=== PATIENT | female | born 1980 | race Caucasian/White ===

== ENCOUNTER 2020-05-23 11:14 | Emergency (ER) | payer SELFPAY ==
[2020-05-23 12:24] LABS: Absolute Lymphocytes (CBC) 2.4 K/uL (0.7-4.9); Basophils % 1.1 % (0-1.3); Lymphocytes % 25.2 % (15.3-44.8); MPV 8.1 fL (7.6-11.3); RBC Red Blood Cell Count 5.27 M/uL (3.86-4.86)
[2020-05-23] MEDS ORDERED: METOCLOPRAMIDE 10 MG/2mL INJ ONE (12:30)
[2020-05-23] MEDS ORDERED: NA CHLORIDE 0.9% 1,000 ML ONE (12:31)
[2020-05-23] MEDS ORDERED: LORazepam 2 MG/ML VIAL ONE (12:31)
[2020-05-23] MEDS ORDERED: DIPHENHYDRAMINE 50 MG/ML VIAL ONE (12:31)
[2020-05-23 12:47] LABS: ALT/SGPT 30 U/L (12-78); AST/SGOT 10 U/L (15-37); Albumin 3.9 g/dL (3.4-5.0); Alkaline Phosphatase 83 U/L (45-117); BUN Blood Urea Nitrogen 11 mg/dL (7-18); Bicarbonate 25 mmol/L (21-32); Bilirubin Direct < 0.1 mg/dL (0-0.2); Bilirubin Total 0.2 mg/dL (0.2-1.0); Glucose Level 90 mg/dL (74-106); Lipase 111 U/L (73-393); Potassium 4.6 mmol/L (3.5-5.1); Protein, Total 7.8 g/dL (6.4-8.2); Sodium Level 140 mmol/L (136-145)
[2020-05-23 12:50] LABS: Urine Blood NEGATIVE (NEG); Urine Glucose NEGATIVE (NEG); Urine Protein NEGATIVE (NEG)
[2020-05-23] MEDS ORDERED: MORPHINE 4 MG/ML SYR ONE (13:39)
--- NOTE | 2020-05-23 13:44 | RAD REPORT ---
EXAM DESCRIPTION: CTAbdomen Pelvis W Contrast - 05/23/2020 1:27 pm CLINICAL HISTORY: Abdominal pain. right sided abdominal pain COMPARISON: CT ABD PELVIS W CONTRAST dated 07/16/2008 TECHNIQUE: Biphasic CT imaging of the abdomen and pelvis was performed with 100 ml non-ionic IV cont rast. All CT scans are performed using dose optimization technique as appropriate and may include automated exposure control or mA/KV adjustment according to patient size. FINDINGS: The lung bases are clear.Cholecystectomy clips. The liver, spleen, pancreas, right adrenal gland and kidneys are within normal limits. 21 mm left adr enal mass is present. No bowel obstruction, free air, free fluid or abscess. Sigmoid diverticulosis without diverticulitis. The appendix is normal. No evidence of significant lymphadenopathy. No suspicious bony findings. IMPRESSION: No acute intra-abdominal or pelvic finding. 21 mm left adrenal mass is new since 2008 but statistically most likely a benign adenoma. Nonemergent MRI adrenal protocol could be obtained for further workup.
--- NOTE | 2020-05-23 14:59 | RAD REPORT ---
EXAM DESCRIPTION: US - Pelvis Complete - 05/23/2020 2:51 pm CLINICAL HISTORY: abdominal pain Pelvic pain. COMPARISON: No comparisons FINDINGS: The uterus is normal in size, shape and echotexture. The uterus measures 8.2 x 5.6 x 3.9 c m. The endometrial stripe measures 10 mm, normal. Both ovaries are normal in size, shape and echotexture. The right ovary measures 2.6 x 2.5 x 2.3 cm. The left ovary measures 3.3 x 2.4 x 2.3 cm. No ovarian or parovarian lesions. No adnexal masses. Normal Doppler blood flow was demonstrated to both ovaries. No significant pelvic ascites. IMPRESSION: Unremarkable study.
[2020-05-23] MEDS ORDERED: FENTANYL CITR 100 MCG/2 ML ONE (15:08)
--- NOTE | 2020-05-23 15:14 | ER ---
Nurse's Notes [facility] Name: Charity Hanks Age: 40 yrs Sex: Female : 1980 Arrival Date: 05/23/2020 Time: 11:17 Bed 19 Private MD: Diagnosis: Generalized abdominal pain Presentation: 05/23 11:30 Chief complaint: Patient states: R flank pain for 10 days with N/V. Coronavirus screen: ll1 Client denies travel out of the [place] in the last 14 days. At this time, the client does not indicate any symptoms associated with coronavirus-19. The client reports previous COVID testing was negative. Ebola Screen: Patient denies travel to an Ebola-affected area in the 21 days before illness onset. Initial Sepsis Screen: Does the patient meet any 2 criteria? No. Patient's initial sepsis screen is negative. Does the patient have a suspected source of infection? Yes: Other: flank pain. Risk Assessment: Do you want to hurt yourself or someone else? Patient reports no desire to harm self or others. Onset of symptoms was May 13, 2020. 11:30 Method Of Arrival: Ambulatory [facility] 11:30 Acuity: CARLOS 3 ll1 Historical: - Allergies: 11:30 No Known Allergies; ll1 - PSHx: 11:30 Cholecystectomy; Tonsillectomy; ll1 - Immunization history:: Flu vaccine is not up to date. - Social history:: Smoking status: Patient reports the use of cigarette tobacco products, smokes one-half pack cigarettes per day. Screenin:32 Abuse screen: Denies threats or abuse. Nutritional screening: No deficits noted. em Tuberculosis screening: No symptoms or risk factors identified. Fall Risk None identified. Assessment: 12:00 General: Appears in no apparent distress. uncomfortable, Behavior is calm, cooperative, em appropriate for age, Denies fever. Pain: Complains of pain in anterior aspect of right lateral abdomen Pain radiates to posterior aspect of right lateral abdomen Pain currently is 10 out of 10 on a pain scale. Neuro: Level of Consciousness is awake, alert, obeys commands, Oriented to person, place, time, situation, Appropriate for age. Cardiovascular: Capillary refill < 3 seconds Patient's skin is warm and dry. Respiratory: Airway is patent Respiratory effort is even, unlabored, Respiratory pattern is regular, symmetrical. GI: Abdomen is flat, Reports nausea, vomiting, Patient currently denies diarrhea. : Denies burning with urination. Derm: Skin is intact, is healthy with good turgor, Skin is pink, warm \T\ dry. Musculoskeletal: Capillary refill < 3 seconds, Range of motion: intact in all extremities. 14:20 Reassessment: wheeled to US via wheelchair. em 14:54 Reassessment: reports pain after US from them pressing down on abdomen, provider em notified, received verbal order for 50 mcg fentanyl IVP x 1. 15:37 Reassessment: Patient appears in no apparent distress at this time. Patient and/or em family updated on plan of care and expected duration. Pain level reassessed. Patient is alert, oriented x 3, equal unlabored respirations, skin warm/dry/pink. Vital Signs: 11:30 BP 129 / 96; Pulse 88; Resp 18; Temp 98.0; Pulse Ox 99% ; Weight 91.63 kg; Height 5 ft. ll1 2 in. (157.48 cm); Pain 10/10; 13:00 BP 116 / 68; Pulse 68; Resp 18; Pulse Ox 98% ; em 14:00 BP 117 / 72; Pulse 71; Resp 18; Pulse Ox 100% on R/A; em 11:30 Body Mass Index 36.95 (91.63 kg, 157.48 cm) ll1 ED Course: 11:17 Patient arrived in ED. mr 11:31 Triage completed. 1 11:31 Arm band placed on Patient placed in an exam room, on a stretcher. [facility] 11:32 Oumar Hodges, JAMES is Primary Nurse. em 11:32 Henry Mclain PA is PHCP. [facility] 11:32 Carmine Jackson MD is Attending Physician. [facility] 11:32 Patient has correct armband on for positive identification. Bed in low position. Call em light in reach. 12:10 Initial lab(s) drawn, by me, sent to lab. Inserted saline lock: 22 gauge in right em antecubital area, using aseptic technique. Blood collected. 13:26 CT Abd/Pelvis - IV Contrast Only In Process Unspecified. EDMS 14:50 US Pelvis Complete In Process Unspecified. EDMS 15:13 Aric Dolan MD is Referral Physician. jmm 15:36 No provider procedures requiring assistance completed. IV discontinued, intact, em bleeding controlled, No redness/swelling at site. Pressure dressing applied. Administered Medications: 12:33 Drug: NS 0.9% 1000 ml Route: IV; Rate: 1 bolus; Site: right antecubital; em 13:49 Follow up: IV Status: Completed infusion; IV Intake: 1000ml em 12:33 Drug: diphenhydrAMINE 12.5 mg Route: IVP; Site: right antecubital; em 13:50 Follow up: Response: No adverse reaction em 12:35 Drug: Reglan 10 mg Route: IVP; Site: right antecubital; em 13:49 Follow up: Response: No adverse reaction; Nausea is decreased em 12:37 Drug: Ativan 1 mg Route: IVP; Site: right antecubital; em 13:50 Follow up: Response: No adverse reaction em 13:49 Drug: morphine 4 mg Route: IVP; Site: right antecubital; em 14:24 Follow up: Response: No adverse reaction; Marked relief of symptoms; Pain is decreased; em RASS: Alert and Calm (0) 15:00 Drug: fentaNYL (PF) 50 mcg Route: IVP; Site: right antecubital; em Intake: 13:49 IV: 1000ml; Total: 1000ml. em Outcome: 15:14 Discharge ordered by MD. [facility] 15:36 Discharged to home ambulatory. em 15:36 Condition: good 15:36 Discharge instructions given to patient, Instructed on discharge instructions, follow up and referral plans. medication usage, Demonstrated understanding of instructions, follow-up care, medications, Prescriptions given X 4. 15:43 Patient left the ED. em Signatures: Dispatcher [employer] Henry Gtz PA PA jmm Alie Hanson HodgesOumar, RN RN Sandra Pichardo RN RN ll1
--- NOTE | 2020-05-23 15:14 | EDPHYS ---
Physician Documentation [facility] Name: Charity Hanks Age: 40 yrs Sex: Female : 1980 Arrival Date: 05/23/2020 Time: 11:17 Bed 19 Private MD: ED Physician Carmine Jackson HPI: 05/23 11:47 This 40 yrs old Female presents to ER via Ambulatory with complaints of Flank jmm Pain, Nausea. 11:47 The patient complains of pain in the right flank. Onset: The symptoms/episode jmm began/occurred gradually, 1 week(s) ago. Modifying factors: The symptoms are alleviated by nothing. the symptoms are aggravated by nothing. This is a 40 year old female with no chronic medical conditions that presents to the ED with complaints of right sided abdominal pain beginning approx 1 week ago. Patient states she has been evaluated multiple times with negative imaging results. Patient continues to have been. Historical: - Allergies: 11:30 No Known Allergies; ll1 - PSHx: 11:30 Cholecystectomy; Tonsillectomy; ll1 - Immunization history:: Flu vaccine is not up to date. - Social history:: Smoking status: Patient reports the use of cigarette tobacco products, smokes one-half pack cigarettes per day. ROS: 11:47 Constitutional: Negative for fever, chills, and weight loss, Cardiovascular: Negative jmm for chest pain, palpitations, and edema, Respiratory: Negative for shortness of breath, cough, wheezing, and pleuritic chest pain. 11:47 Abdomen/GI: Positive for abdominal pain. 11:47 All other systems are negative. Exam: 11:47 Constitutional: This is a well developed, well nourished patient who is awake, alert, jmm and in no acute distress. Head/Face: atraumatic. Eyes: EOMI, no conjunctival erythema appreciated ENT: Moist Mucus Membranes Neck: Trachea midline, Supple Chest/axilla: Normal chest wall appearance and motion. Cardiovascular: Regular rate and rhythm. No edema appreciated Respiratory: Normal respirations, no respiratory distress appreciated 11:47 Back: Normal ROM Skin: General appearance color normal MS/ Extremity: Moves all extremities, no obvious deformities appreciated, no edema noted to the lower extremities Neuro: Awake and alert, normal gait Psych: Behavior is normal, Mood is normal, Patient is cooperative and pleasant 11:47 Abdomen/GI: Inspection: abdomen appears normal, Bowel sounds: normal, Palpation: soft, moderate abdominal tenderness, in the right lower quadrant. Vital Signs: 11:30 BP 129 / 96; Pulse 88; Resp 18; Temp 98.0; Pulse Ox 99% ; Weight 91.63 kg; Height 5 ft. ll1 2 in. (157.48 cm); Pain 10/10; 13:00 BP 116 / 68; Pulse 68; Resp 18; Pulse Ox 98% ; em 14:00 BP 117 / 72; Pulse 71; Resp 18; Pulse Ox 100% on R/A; em 11:30 Body Mass Index 36.95 (91.63 kg, 157.48 cm) ll1 MDM: 11:47 Patient medically screened. [facility] 13:56 Data reviewed: vital signs, nurses notes. Counseling: I had a detailed discussion with osvaldo the patient and/or guardian regarding: the historical points, exam findings, and any diagnostic results supporting the discharge/admit diagnosis, the need for outpatient follow up, to return to the emergency department if symptoms worsen or persist or if there are any questions or concerns that arise at home. 15:12 Data reviewed: lab test result(s), radiologic studies, CT scan, ultrasound. Counseling: osvlado I had a detailed discussion with the patient and/or guardian regarding: lab results, radiology results. ED course: Pain is relieved in the ED. Patient advised to follow up with GI for further evaluation. Patient is otherwise given strict return precautions. Patient understood and agrees with the plan of care. . 05/23 11:49 Order name: Basic Metabolic Panel; Complete Time: 12:53 [facility] 05/23 11:49 Order name: CBC with Diff; Complete Time: 12:29 [facility] 05/23 11:49 Order name: Hepatic Function; Complete Time: 12:53 [facility] 05/23 11:49 Order name: Lipase; Complete Time: 12:53 [facility] 05/23 12:43 Order name: Urine Dipstick--Ancillary (enter results) 05/23 12:43 Order name: Urine --Ancillary (enter results) 05/23 11:49 Order name: CT Abd/Pelvis - IV Contrast Only; Complete Time: 13:47 [facility] 05/23 13:57 Order name: US Pelvis Complete; Complete Time: 15:04 [facility] 05/23 11:49 Order name: IV Saline Lock; Complete Time: 12:37 [facility] 05/23 11:49 Order name: Labs collected and sent; Complete Time: 12:37 [facility] 05/23 12:39 Order name: Urine Dipstick-Ancillary (obtain specimen); Complete Time: 12:43 [facility] 05/23 12:39 Order name: Urine Test (obtain specimen); Complete Time: 12:43 [facility] Administered Medications: 12:33 Drug: NS 0.9% 1000 ml Route: IV; Rate: 1 bolus; Site: right antecubital; em 13:49 Follow up: IV Status: Completed infusion; IV Intake: 1000ml em 12:33 Drug: diphenhydrAMINE 12.5 mg Route: IVP; Site: right antecubital; em 13:50 Follow up: Response: No adverse reaction em 12:35 Drug: Reglan 10 mg Route: IVP; Site: right antecubital; em 13:49 Follow up: Response: No adverse reaction; Nausea is decreased em 12:37 Drug: Ativan 1 mg Route: IVP; Site: right antecubital; em 13:50 Follow up: Response: No adverse reaction em 13:49 Drug: morphine 4 mg Route: IVP; Site: right antecubital; em 14:24 Follow up: Response: No adverse reaction; Marked relief of symptoms; Pain is decreased; em RASS: Alert and Calm (0) 15:00 Drug: fentaNYL (PF) 50 mcg Route: IVP; Site: right antecubital; em Disposition: 15:52 Co-signature as Attending Physician, Carmine Jackson MD. rn Disposition: 05/23/20 15:14 Discharged to Home. Impression: Generalized abdominal pain. - Condition is Stable. - Discharge Instructions: Abdominal Pain, Adult. - Prescriptions for Bentyl 20 mg Oral Tablet - take 1 tablet by ORAL route every 6 hours As needed; 20 tablet. Ultracet 37.5- 325 mg Oral Tablet - take 12 tablet by ORAL route every 6 hours - for up to 5 days; do not exceed 8 tablets per day.; 30 tablet. promethazine 25 mg Oral Tablet - take 1 tablet by ORAL route every 6 hours As needed; 20 tablet. Medrol ([place]) 4 mg Oral Tablets, Dose Pack - take 1 tablet by ORAL route as directed - follow package instructions; 1 packet. - Work release form, Medication Reconciliation Form, Thank You Letter, Antibiotic Education, Prescription Opioid Use form. - Follow up: Aric Dolan MD; When: 2 - 3 days; Reason: Recheck today's complaints, Continuance of care, Re-evaluation by your physician. Signatures: Dispatcher [employer] EDMS Henry Mclain PA PA jmm Munoz, Edgar, RN RN Carmine Pickett MD MD rn Lewis, Lynsay, RN RN ll1 Corrections: (The following items were deleted from the chart) 15:43 15:14 05/23/2020 15:14 Discharged to Home. Impression: Generalized abdominal pain. em Condition is Stable. Forms are Medication Reconciliation Form, Thank You Letter, Antibiotic Education, Prescription Opioid Use. Follow up: Aric Dolan; When: 2 - 3 days; Reason: Recheck today's complaints, Continuance of care, Re-evaluation by your physician. osvaldo
[2020-05-23 17:02] VITALS: TEMP 98
[2020-05-23 17:05] VITALS: BP 117/72; O2SAT 100
== END 2020-05-23 15:43 | disposition home or self-care (01) ==
LOC: ER 11:14
DX: R10.84 Generalized abdominal pain (principal); F17.210 Nicotine dependence, cigarettes, uncomplicated
CPT/HCPCS: 36415; 74177; 76856; 80048; 80076; 81003; 81025; 83690; 85025; 96361; 96374; 96375; 99284; J1200; J2765; J3010; J7030; Q9967

== ENCOUNTER 2020-08-08 20:35 | Emergency (ER) | payer BC, SELFPAY ==
[2020-08-08] MEDS ORDERED: MEPERIDINE HCL 25 MG/ML SYR ONE ×2 (21:37→22:49)
[2020-08-08] MEDS ORDERED: ONDANSETRON 4 MG/2 ML VIAL ONE (21:37)
[2020-08-08 21:45] LABS: Absolute Lymphocytes (CBC) 4.3 K/uL (0.7-4.9); Basophils % 1.2 % (0-1.3); Hematocrit 39.4 % (36.0-45.0); Lymphocytes % 33.8 % (15.3-44.8); MPV 8.2 fL (7.6-11.3); RBC Red Blood Cell Count 4.58 M/uL (3.86-4.86)
[2020-08-08 21:58] LABS: ALT/SGPT 18 U/L (12-78); AST/SGOT 14 U/L (15-37); Albumin 3.4 g/dL (3.4-5.0); Alkaline Phosphatase 59 U/L (45-117); BUN Blood Urea Nitrogen 11 mg/dL (7-18); Bicarbonate 21 mmol/L (21-32); Bilirubin Direct < 0.1 mg/dL (0-0.2); Bilirubin Total 0.1 mg/dL (0.2-1.0); Glucose Level 99 mg/dL (74-106); NT PRO-BNP 83 pg/mL (<125); Potassium 3.7 mmol/L (3.5-5.1); Protein, Total 6.8 g/dL (6.4-8.2); Sodium Level 142 mmol/L (136-145); Troponin (Emerg Dept Use Only) < 0.02 ng/mL (0.0-0.045)
[2020-08-08] MEDS ORDERED: Levofloxacin 750mg IV 750 MG/150 ML BAG IV ONE (22:49)
[2020-08-08 22:56] LABS: SARS-COV-2 RT PCR NEGATIVE (NEGATIVE)
--- NOTE | 2020-08-09 00:41 | ER ---
Nurse's Notes [facility] Name: Charity Hanks Age: 40 yrs Sex: Female : 1980 Arrival Date: 08/08/2020 Time: 20:37 Bed 14 Private MD: Johnny Zapata E Diagnosis: Pneumonia, unspecified organism Presentation: 08/08 20:41 Chief complaint: Patient states: R flank pain started yesterday. Today, chest pain, dry ca1 mouth, muscle pains and difficulty swallowing. Also reports a little bit of cough, and a little bit of burning with urination. Coronavirus screen: Client denies travel out of the [place] in the last 14 days. cough unrelated to allergies, muscle pain, shortness of breath, sore throat, Client presents with at least one sign or symptom that may indicate coronavirus-19. Standard/surgical mask placed on the client. Provider contacted for isolation considerations. Ebola Screen: Patient negative for fever greater than or equal to 101.5 degrees Fahrenheit, and additional compatible Ebola Virus Disease symptoms Patient denies exposure to infectious person. Patient denies travel to an Ebola-affected area in the 21 days before illness onset. No symptoms or risks identified at this time. Initial Sepsis Screen: Does the patient meet any 2 criteria? No. Patient's initial sepsis screen is negative. Does the patient have a suspected source of infection? No. Patient's initial sepsis screen is negative. Risk Assessment: Do you want to hurt yourself or someone else? Patient reports no desire to harm self or others. Onset of symptoms was August 08, 2020. 20:41 Method Of Arrival: Ambulatory ca1 20:41 Acuity: CARLOS 3 ca1 Historical: - Allergies: 20:56 No Known Allergies; ca1 - Home Meds: 20:56 None [Active]; ca1 - PMHx: 20:56 None; ca1 - PSHx: 20:56 Tonsillectomy; Cholecystectomy; ca1 - Immunization history:: Flu vaccine is not up to date. - Social history:: Smoking status: Patient reports the use of cigarette tobacco products, smokes one-half pack cigarettes per day. - Family history:: not pertinent. - Hospitalizations: : No recent hospitalization is reported. Screenin:45 Abuse screen: Denies threats or abuse. Nutritional screening: No deficits noted. jb4 Tuberculosis screening: No symptoms or risk factors identified. Fall Risk None identified. Assessment: 21:45 General: Appears in no apparent distress. uncomfortable, Behavior is calm, cooperative, jb4 appropriate for age. Pain: Complains of pain in chest Pain does not radiate. Pain currently is 9 out of 10 on a pain scale. Quality of pain is described as pressure. Neuro: Level of Consciousness is awake, alert, obeys commands, Oriented to person, place, time, situation. Cardiovascular: Heart tones S1 S2 present Patient's skin is warm and dry. Respiratory: Airway is patent Respiratory effort is even, labored, with retractions, Respiratory pattern is symmetrical, hyperventilation Breath sounds are clear bilaterally. GI: No signs and/or symptoms were reported involving the gastrointestinal system. : No signs and/or symptoms were reported regarding the genitourinary system. EENT: No signs and/or symptoms were reported regarding the EENT system. Derm: Skin is intact, Skin is pink, warm \T\ dry. Musculoskeletal: Circulation, motion, and sensation intact. Range of motion: intact in all extremities. 22:00 Reassessment: Patient appears in no apparent distress at this time. Patient and/or jb4 family updated on plan of care and expected duration. Pain level reassessed. PT remains A\T\Ox4, reports decrease pain. respirations remain elevated at 39, provider is aware. Patient states feeling better. 23:09 Reassessment: Patient appears in no apparent distress at this time. No changes from jb4 previously documented assessment. Patient and/or family updated on plan of care and expected duration. Pain level reassessed. 08/09 00:39 Reassessment: Patient appears in no apparent distress at this time. Patient and/or jb4 family updated on plan of care and expected duration. Pain level reassessed. Patient is alert, oriented x 3, equal unlabored respirations, skin warm/dry/pink. Patient denies pain at this time. Patient states feeling better. Patient states symptoms have improved. Vital Signs: 08/08 20:41 BP 135 / 88; Pulse 92; Resp 20 S; Temp 98(O); Pulse Ox 98% on R/A; Weight 99.79 kg (R); ca1 Height 5 ft. 2 in. (157.48 cm) (R); Pain 9/10; 22:00 BP 124 / 77; Pulse 86; Resp 39; Pulse Ox 98% on R/A; jb4 23:30 BP 124 / 80; Pulse 73; Resp 28; Pulse Ox 97% on R/A; jb4 08/09 00:30 BP 109 / 81; Pulse 87; Resp 18; Pulse Ox 97% on R/A; jb4 08/08 20:41 Body Mass Index 40.24 (99.79 kg, 157.48 cm) ca1 ED Course: 08/08 20:37 Patient arrived in ED. am2 20:37 Johnny Zapata MD is Private Physician. am2 20:42 Carmine Jackson MD is Attending Physician. rn 20:55 Triage completed. ca1 20:56 Arm band placed on right wrist. ca1 21:02 Herminio Sauer, RN is Primary Nurse. jb4 21:10 Initial lab(s) drawn, by ms, sent to lab. Inserted saline lock: 18 gauge in right jb4 forearm, using aseptic technique. Blood collected. 21:45 Patient has correct armband on for positive identification. Call light in reach. Side jb4 rails up X 1. light bulb tester on. Pulse ox on. NIBP on. 21:45 Patient maintains SpO2 saturation greater than 95% on room air. jb4 21:59 XRAY Chest (1 view) In Process Unspecified. EDMS 22:03 CT Stone Protocol In Process Unspecified. EDMS 23:26 CT Chest For PE Angio In Process Unspecified. EDMS 08/09 00:53 No provider procedures requiring assistance completed. Patient did not have IV access jb4 during this emergency room visit. Administered Medications: 08/08 21:35 Drug: Zofran (Ondansetron) 4 mg Route: IVP; Site: left antecubital; jb4 22:00 Follow up: Response: No adverse reaction jb4 21:40 Drug: Demerol 25 mg Route: IVP; Site: right antecubital; jb4 22:10 Follow up: Response: No adverse reaction; Pain is decreased; RASS: Alert and Calm (0) jb4 22:48 Drug: Demerol 25 mg Route: IVP; Site: right forearm; jb4 23:15 Follow up: Response: No adverse reaction; Pain is decreased; RASS: Alert and Calm (0) jb4 22:50 Drug: LevaQUIN 750 mg Volume: 150 ml; Route: IVPB; Infused Over: 90 mins; Site: right jb4 forearm; 08/09 00:20 Follow up: Response: No adverse reaction; IV Status: Completed infusion; IV Intake: jb4 150ml Intake: 00:20 IV: 150ml; Total: 150ml. jb4 Outcome: 00:40 Discharge ordered by . rn 00:53 Discharged to home ambulatory. jb4 00:53 Condition: stable 00:53 Discharge instructions given to patient, Instructed on discharge instructions, follow up and referral plans. medication usage, Demonstrated understanding of instructions, follow-up care, medications, Prescriptions given X 1. 00:54 Patient left the ED. jb4 Signatures: Dispatcher [employer] EDMS Carmine Jackson MD MD rn Bryson, James RN RN jb4 Becky Edgar Cheryl RN RN ca1
--- NOTE | 2020-08-09 00:41 | EDPHYS ---
Physician Documentation [facility] Name: Charity Hanks Age: 40 yrs Sex: Female : 1980 Arrival Date: 08/08/2020 Time: 20:37 Bed 14 Private MD: Johnny Zapata E ED Physician Carmine Jackson HPI: 08/08 20:48 This 40 yrs old Female presents to ER via Unassigned with complaints of Chest rn Pain, dry mouth, Difficulty Swallowing, Low Back Pain. 20:48 The patient or guardian reports chest pain that is located primarily in the substernal rn area. Onset: yesterday. The pain does not radiate. Associated signs and symptoms: Pertinent positives: cough, nausea, right flank pain. The chest pain is described as sharp. Duration: The patient or guardian reports multiple episodes, that are intermittent. Modifying factors: The symptoms are alleviated by nothing. the symptoms are aggravated by cough, deep breath. Severity of pain: At its worst the pain was mild in the emergency department the pain is unchanged. The patient has not experienced similar symptoms in the past. The patient has not recently seen a physician. Reports "doesn't feel good", began yesterday, reports biggest problem is right lower/flank pain, non-radiating, assoc with nausea and increased urination and dysuria. Also reports substernal chest pain, assoc with cough, sharp, lasts seconds, non-radiating. Also reports low grade fever, nausea, diarrhea, and fatigue. No known sick contacts. Also reports feels like can't get enough water and dry mouth.. Historical: - Allergies: 20:56 No Known Allergies; ca1 - Home Meds: 20:56 None [Active]; ca1 - PMHx: 20:56 None; ca1 - PSHx: 20:56 Tonsillectomy; Cholecystectomy; ca1 - Immunization history:: Flu vaccine is not up to date. - Social history:: Smoking status: Patient reports the use of cigarette tobacco products, smokes one-half pack cigarettes per day. - Family history:: not pertinent. - Hospitalizations: : No recent hospitalization is reported. ROS: 20:50 Constitutional: + fever Eyes: Negative for injury, pain, redness, and discharge, Neck: rn Negative for injury, pain, and swelling, Cardiovascular: Negative for palpitations, and edema, Respiratory: Negative for shortness of breath, wheezing Abdomen/GI: neg for abd pain, + nausea and diarrhea Back: + right flank pain : + dysuria and increased frequency MS/Extremity: Negative for injury and deformity, Skin: Negative for injury, rash, and discoloration, Neuro: Negative for headache, numbness, tingling, and seizure. Exam: 20:50 Constitutional: This is a well developed, well nourished patient who is awake, alert, rn and in no acute distress. Head/Face: Normocephalic, atraumatic. ENT: dry MM Cardiovascular: Regular rate and rhythm. No pulse deficits. Respiratory: No increased work of breathing, no retractions or nasal flaring. Abdomen/GI: soft, non-tender, no masses Back: No spinal tenderness. No muscular tenderness. No CVAT Skin: Warm, dry MS/ Extremity: Pulses equal, no cyanosis Neuro: Awake and alert, GCS 15 20:52 ECG was reviewed by the Attending Physician. rn Vital Signs: 20:41 BP 135 / 88; Pulse 92; Resp 20 S; Temp 98(O); Pulse Ox 98% on R/A; Weight 99.79 kg (R); ca1 Height 5 ft. 2 in. (157.48 cm) (R); Pain 9/10; 22:00 BP 124 / 77; Pulse 86; Resp 39; Pulse Ox 98% on R/A; jb4 23:30 BP 124 / 80; Pulse 73; Resp 28; Pulse Ox 97% on R/A; jb4 08/09 00:30 BP 109 / 81; Pulse 87; Resp 18; Pulse Ox 97% on R/A; jb4 08/08 20:41 Body Mass Index 40.24 (99.79 kg, 157.48 cm) ca1 MDM: 08/08 20:42 Patient medically screened. rn 22:34 ED course: Pt became tachypneic, improved slightly with pain medication, ct stone no furnace tender findings in abdomen, shows right lower atelectasis, but given low grade fever/chills and dyspnea, could represent pneumonia or PE. Will get CT chest to further eval.. 08/09 00:38 Differential diagnosis: chest wall pain, costochondritis, esophagitis, gastritis, rn gastroesophageal reflux disease (GERD), pericarditis, pleurisy, pneumonia, pneumothorax. Data reviewed: vital signs, nurses notes, lab test result(s), EKG, radiologic studies, CT scan, plain films, and as a result, I will discharge patient. Counseling: I had a detailed discussion with the patient and/or guardian regarding: the historical points, exam findings, and any diagnostic results supporting the discharge/admit diagnosis, lab results, radiology results, the need for outpatient follow up, to return to the emergency department if symptoms worsen or persist or if there are any questions or concerns that arise at home. Response to treatment: the patient's symptoms have markedly improved after treatment, the patient's condition has returned to base line, and as a result, I will discharge patient. Special discussion: I discussed with the patient/guardian in detail that at this point there is no indication for admission to the hospital. It is understood, however, that if the symptoms persist or worsen the patient needs to return immediately for re-evaluation. ED course: Pt markedly improved, CT chest neg for acute findings, ct stone neg for acute findings, questionable right lower pneumonia, will dc home with abx given elevated procal and chills with low grade fever and covid/flu neg. . 08/08 20:47 Order name: Basic Metabolic Panel rn 08/08 20:47 Order name: CBC with Diff rn 08/08 20:47 Order name: LFT's rn 08/08 20:47 Order name: NT PRO-BNP rn 08/08 20:47 Order name: Troponin (emerg Dept Use Only) rn 08/08 21:21 Order name: Basic Metabolic Panel; Complete Time: 22:13 EDGA 08/08 21:21 Order name: CBC with Automated Diff; Complete Time: 22:13 EDGA 08/08 21:21 Order name: Liver (Hepatic) Function; Complete Time: 22:13 EDGA 08/08 21:21 Order name: NT PRO-BNP; Complete Time: 22:13 EDGA 08/08 21:21 Order name: Troponin (Emerg Dept Use Only); Complete Time: 22:13 EDGA 08/08 20:47 Order name: XRAY Chest (1 view) rn 08/08 20:47 Order name: EKG; Complete Time: 21:22 rn 08/08 20:47 Order name: Cardiac monitoring; Complete Time: 20:56 rn 08/08 20:47 Order name: EKG - Nurse/Tech; Complete Time: 20:56 rn 08/08 20:47 Order name: IV Saline Lock; Complete Time: 21:33 rn 08/08 20:47 Order name: CT Stone Protocol rn 08/08 21:27 Order name: Glucose, Ancillary Testing; Complete Time: 22:13 EDMS 08/08 22:31 Order name: Blood Culture Adult (2) [facility] 08/08 22:31 Order name: Procalcitonin; Complete Time: 00:38 [facility] 08/08 22:31 Order name: Lactate; Complete Time: 00:38 [facility] 08/08 22:34 Order name: CT Chest For PE Angio rn 08/08 22:57 Order name: COVID-19/FLU A+B; Complete Time: 00:38 EDMS 08/08 20:47 Order name: Labs collected and sent; Complete Time: 21:34 rn 08/08 20:47 Order name: O2 Per Protocol; Complete Time: 20:56 rn 08/08 20:47 Order name: O2 Sat Monitoring; Complete Time: 20:56 rn 08/08 20:50 Order name: Glucose Level; Complete Time: 21:25 rn EC/01 20:52 Rate is 93 beats/min. Rhythm is regular. QRS [place] is Normal. RI interval is normal. QRS rn interval is normal. QT interval is normal. No Q waves. T waves are Normal. No ST changes noted. Clinical impression: Normal ECG. Interpreted by me. Reviewed by me. Administered Medications: 21:35 Drug: Zofran (Ondansetron) 4 mg Route: IVP; Site: left antecubital; [facility] 22:00 Follow up: Response: No adverse reaction [facility] 21:40 Drug: Demerol 25 mg Route: IVP; Site: right antecubital; jb4 22:10 Follow up: Response: No adverse reaction; Pain is decreased; RASS: Alert and Calm (0) [facility] 22:48 Drug: Demerol 25 mg Route: IVP; Site: right forearm; jb4 23:15 Follow up: Response: No adverse reaction; Pain is decreased; RASS: Alert and Calm (0) [facility] 22:50 Drug: LevaQUIN 750 mg Volume: 150 ml; Route: IVPB; Infused Over: 90 mins; Site: right jb4 forearm; 08/09 00:20 Follow up: Response: No adverse reaction; IV Status: Completed infusion; IV Intake: jb4 150ml Disposition: 08/09/20 00:40 Discharged to Home. Impression: Pneumonia, unspecified organism. - Condition is Stable. - Discharge Instructions: Community-Acquired Pneumonia, Adult. - Prescriptions for Levaquin 500 mg Oral Tablet - take 1 tablet by ORAL route once daily for 7 days; 7 tablet. - Medication Reconciliation Form, Thank You Letter, Antibiotic Education, Prescription Opioid Use form. - Follow up: Private Physician; When: As needed; Reason: Recheck today's complaints, Re-evaluation by your physician. - Problem is new. - Symptoms have improved. Signatures: Dispatcher [employer] EDMS Carmine Jackson MD MD rn Bryson, James, RN RN jb4 Luis, Mague RN RN ca1 Corrections: (The following items were deleted from the chart) 08/08 22:00 21:21 Influenza Screen (A \\T\\ B)+[id number].LAB.BRZ ordered. [facility] 22:00 21:22 [facility] Screen (A [facility]. [facility] 08/09 00:51 02 20:47 Urine Test ordered. rn cassidy 08/09 00:51 08/08 20:47 Urine Dipstick-Ancillary ordered. jose benjamin 08/09 00:54 00:40 08/09/2020 00:40 Discharged to Home. Impression: Pneumonia, unspecified organism. jb4 Condition is Stable. Forms are Medication Reconciliation Form, Thank You Letter, Antibiotic Education, Prescription Opioid Use. Follow up: Private Physician; When: As needed; Reason: Recheck today's complaints, Re-evaluation by your physician. Problem is new. Symptoms have improved. rn
[2020-08-09 05:46] VITALS: TEMP 98
[2020-08-09 05:49] VITALS: O2SAT 97
[2020-08-09 05:50] VITALS: BP 109/81
--- NOTE | 2020-08-09 12:29 | RAD REPORT ---
EXAM DESCRIPTION: CT Chest For PE Angio CLINICAL HISTORY: 40 years Female Chest pain; Dyspnea TECHNIQUE: Contiguous axial images obtained through the chest were obtained from the thoracic inlet to the level of the upper abdomen during the pulmonary arterial phase of intravenous contrast adminis tration. Coronal and sagittal reformatted images provided. This CT exam was performed according to our departmental dose-optimization program, which includes on e or more of the following dose reduction techniques: automated exposure control, adjustment of the m A and/or kV according to patient size, and/or use of iterative reconstruction technique. COMPARISON: No prior exams provided for comparison. FINDINGS: There is no pulmonary embolus. The thoracic aorta is normal without aneurysm or dissection. The heart is normal in size without patsy cardial effusion. The lung volumes are low with patchy atelectasis bilaterally. No pleural effusion or pneumothorax. Th ere are shotty diffuse mediastinal lymph nodes. There is a calcified right subcarinal lymph node. There are no visualized acute osseous or upper abdominal abnormalities. IMPRESSION: No pulmonary embolus. Patchy atelectasis. Shotty nonspecific mediastinal lymph nodes. No other acute findings. Electronically signed by: Amanda Sawant MD 08/08/2020 11:38 PM MARKETING PROJECT LEAD Due to temporary technical issues with the PACS/Fluency reporting system, reports are being signed by the in house radiologists without review as a courtesy to insure prompt reporting. The interpreting radiologist is fully responsible for the content of the report.
--- NOTE | 2020-08-09 12:30 | RAD REPORT ---
EXAM DESCRIPTION: Chest Single View CLINICAL HISTORY: CHEST PAIN COMPARISON: None. FINDINGS: Single frontal radiograph view of the chest. Cardiomediastinal silhouette: Normal size and contour. Leads overlie the chest. Lungs: No consolidation, pneumothorax, or pleural effusion. Low lung volumes. Bones: No acute osseous abnormality. Upper abdomen: No abnormality identified. IMPRESSION: 1. No acute pulmonary process identified. Electronically signed by: Jens Miller 08/08/2020 10:09 PM PROFESSOR OF SURGERY Due to temporary technical issues with the PACS/Fluency reporting system, reports are being signed by the in house radiologists without review as a courtesy to insure prompt reporting. The interpreting radiologist is fully responsible for the content of the report.
--- NOTE | 2020-08-09 12:44 | RAD REPORT ---
EXAM DESCRIPTION: CT ABDOMEN AND PELVIS WITHOUT CONTRAST CLINICAL HISTORY: Right flank pain. Chest pain. COMPARISON: None Available. TECHNIQUE: CT of the abdomen and pelvis without IV contrast. Evaluation of the solid organs and vasc ulature is suboptimal due to lack of IV contrast. FINDINGS: Lung Bases: Minimal right basilar opacities may represent atelectasis. Bones: Mild degenerative endplate spondylosis and facet arthropathy throughout the visualized spine. Abdomen: Liver: The liver has normal size and density. Gallbladder: Prior cholecystectomy. Spleen, Pancreas, and Adrenal Glands: 2.3 x 2.5 cm lipid rich left adrenal adenoma. No follow-up im aging recommended. Right adrenal gland, spleen, and pancreas are unremarkable. Kidneys: The kidneys have normal size without evidence of hydronephrosis. No obstructing ureteral dilma culi. Vasculature: Aortoiliac atherosclerosis. IVC is unremarkable. Stomach: The stomach and duodenum have normal course. Other: No free intraperitoneal air. No free fluid or lymphadenopathy. Pelvis: Bladder: Urinary bladder is unremarkable. Bowel: No dilated loops of large or small bowel. Appendix: Normal appendix. Pelvis: 3.3 x 2.6 cm left ovarian cyst. Uterus is not enlarged. IMPRESSION: 1. No acute inflammatory or obstructive process identified. 2. 3.3 cm probably benign left ovarian cyst. Recommend follow-up pelvic US in 6-12 weeks. Reference: J Am Emre Radiol 2013;10:675-681 This exam was performed according to our departmental dose-optimization program, which includes autom ated exposure control, adjustment of the mA and/or kV according to patient size and/or use of iterati ve reconstruction technique. Electronically signed by: Jens Miller 08/08/2020 10:16 PM PEARL TECHNICIAN Due to temporary technical issues with the PACS/Fluency reporting system, reports are being signed by the in house radiologists without review as a courtesy to insure prompt reporting. The interpreting radiologist is fully responsible for the content of the report.
--- NOTE | 2020-08-09 12:54 | EKG ---
Test Date: 2020-08-08 Test Time: 20:47:22 Brake Engineer: LAWRENCE MEASUREMENT RESULTS: Intervals: Rate: 93 AK: 150 QRSD: 78 QT: 352 QTc: 437 [place]: P: 39 AK: 150 QRS: 32 T: 28 INTERPRETIVE STATEMENTS: Normal sinus rhythm Possible Left atrial enlargement Borderline ECG Compared to ECG 01/28/2006 21:42:02 No significant changes Electronically Signed On 08-09-20 12:53:08 SPINDLE REPAIRER by Edgar Bazzi
== END 2020-08-09 00:54 | disposition home or self-care (01) ==
LOC: ER 20:35
DX: J18.9 Pneumonia, unspecified organism (principal); Z20.822 Contact with and (suspected) exposure to COVID-19; F17.210 Nicotine dependence, cigarettes, uncomplicated
CPT/HCPCS: 93005; 87040 ×2; 85025; 80048; 36415; 82947; 80076; 83605; 84484; 84145; 83880; 0240U; 76377; 71275; 74176; 71045; Q9967; J2175 ×2; J2405; 99285

== ENCOUNTER 2020-08-15 20:32 | Emergency (ER) | payer BC ==
[2020-08-15] MEDS ORDERED: ONDANSETRON 4 MG/2 ML VIAL ONE (23:24)
[2020-08-15] MEDS ORDERED: MORPHINE 4 MG/ML SYR ONE (23:24)
[2020-08-15 23:38] LABS: Absolute Lymphocytes (CBC) 2.9 K/uL (0.7-4.9); Basophils % 0.9 % (0-1.3); Hematocrit 40.6 % (36.0-45.0); Lymphocytes % 15.4 % (15.3-44.8); MPV 8.3 fL (7.6-11.3); RBC Red Blood Cell Count 4.66 M/uL (3.86-4.86)
[2020-08-15 23:39] LABS: Protime INR 0.95
[2020-08-15 23:52] LABS: ALT/SGPT 22 U/L (12-78); AST/SGOT 9 U/L (15-37); Albumin 3.6 g/dL (3.4-5.0); Alkaline Phosphatase 67 U/L (45-117); BUN Blood Urea Nitrogen 11 mg/dL (7-18); Bicarbonate 22 mmol/L (21-32); Bilirubin Direct < 0.1 mg/dL (0-0.2); Bilirubin Total 0.1 mg/dL (0.2-1.0); Glucose Level 113 mg/dL (74-106); NT PRO-BNP 84 pg/mL (<125); Potassium 4.2 mmol/L (3.5-5.1); Protein, Total 7.5 g/dL (6.4-8.2); Sodium Level 138 mmol/L (136-145); Troponin (Emerg Dept Use Only) < 0.02 ng/mL (0.0-0.045)
[2020-08-16] MEDS ORDERED: LORazepam 2 MG/ML VIAL ONE (00:09)
--- NOTE | 2020-08-16 00:48 | EDPHYS ---
Physician Documentation [facility] Name: Charity Hanks Age: 40 yrs Sex: Female : 1980 Arrival Date: 08/15/2020 Time: 20:32 Bed 6 Private MD: ED Physician Alexx Motta HPI: 08/15 23:36 This 40 yrs old Female presents to ER via Ambulatory with complaints of Chest ma2 Pain, Low Back Pain. 23:36 The patient or guardian reports chest pain that is located primarily in the anterior ma2 chest wall. Onset: gradually, 1 week(s) ago. Associated signs and symptoms: Pertinent positives: cough, Pertinent negatives: headache, lightheadedness, nausea. Severity of pain: At its worst the pain was mild in the emergency department the pain is unchanged. has productive cough diagnosed w bronchitis has chest pain that is constant for a week when she cough only . Historical: - Allergies: 20:41 No Known Allergies; ll1 - PMHx: 20:41 None; ll1 - PSHx: 20:41 Cholecystectomy; Tonsillectomy; ll1 - Immunization history:: Flu vaccine is not up to date. - Social history:: Smoking status: Patient reports the use of cigarette tobacco products, smokes one-half pack cigarettes per day. - Family history:: not pertinent. ROS: 23:36 Constitutional: Negative for fever, chills, and weight loss. ma2 23:36 All other systems are negative. Exam: 23:36 Constitutional: This is a well developed, well nourished patient who is awake, alert, ma2 and in no acute distress. Head/Face: Normocephalic, atraumatic. Eyes: Pupils equal round and reactive to light, extra-ocular motions intact. Lids and lashes normal. Conjunctiva and sclera are non-icteric and not injected. Cornea within normal limits. Periorbital areas with no swelling, redness, or edema. ENT: Nares patent. No nasal discharge, no septal abnormalities noted. Tympanic membranes are normal and external auditory canals are clear. Oropharynx with no redness, swelling, or masses, exudates, or evidence of obstruction, uvula midline. Mucous membranes moist. Neck: Trachea midline, no thyromegaly or masses palpated, and no cervical lymphadenopathy. Supple, full range of motion without nuchal rigidity, or vertebral point tenderness. No Meningismus. Cardiovascular: Regular rate and rhythm with a normal S1 and S2. No gallops, murmurs, or rubs. Normal PMI, no JVD. No pulse deficits. Respiratory: Lungs have equal breath sounds bilaterally, clear to auscultation and percussion. No rales, rhonchi or wheezes noted. No increased work of breathing, no retractions or nasal flaring. Abdomen/GI: Soft, non-tender, with normal bowel sounds. No distension or tympany. No guarding or rebound. No evidence of tenderness throughout. MS/ Extremity: Pulses equal, no cyanosis. Neurovascular intact. Full, normal range of motion. 23:36 Chest/axilla: Palpation: tenderness, that is mild, of the mid-sternal area. Vital Signs: 20:41 BP 150 / 98; Pulse 100; Resp 24; Temp 98.5; Pulse Ox 99% ; Weight 99.79 kg; Height 5 ll1 ft. 2 in. (157.48 cm); Pain 9/10; 08/16 00:34 BP 99 / 54; Pulse 74; Resp 15; Pulse Ox 98% ; rv 08/15 20:41 Body Mass Index 40.24 (99.79 kg, 157.48 cm) ll1 MDM: 08/15 22:[address] [facility] 23:36 Differential diagnosis: chest wall pain, gastritis, gastroesophageal reflux disease ma2 (GERD), hiatal hernia, pancreatitis, pleurisy. TATIANA Risk Score: not applicable. 08/16 00:47 ED course: wbc is elevated however she has bronchitis and no other component of sirs.. ma2 she will return to er for any worsening of her syx.. . ED course: has z-pack still. 00:50 Data reviewed: vital signs, nurses notes. Counseling: I had a detailed discussion with ma2 the patient and/or guardian regarding: the historical points, exam findings, and any diagnostic results supporting the discharge/admit diagnosis, the presence of at least one elevated blood pressure reading (>120/80) during this emergency department visit, the need for outpatient follow up. 08/15 22:45 Order name: Basic Metabolic Panel; Complete Time: 00:39 ma2 08/15 22:45 Order name: CBC with Diff; Complete Time: 00:39 ma2 08/15 22:45 Order name: LFT's; Complete Time: 00:39 ma2 08/15 22:45 Order name: Magnesium; Complete Time: 00:39 ma2 08/15 22:45 Order name: NT PRO-BNP; Complete Time: 00:39 ma2 08/15 22:45 Order name: PT-INR; Complete Time: 00:39 ma2 08/15 22:45 Order name: Troponin (emerg Dept Use Only); Complete Time: 00:39 ma2 08/15 22:45 Order name: XRAY Chest (1 view) me2 08/15 22:45 Order name: EKG; Complete Time: 23:15 ma2 08/15 22:45 Order name: Cardiac monitoring; Complete Time: 23:06 ma2 08/16 00:44 Order name: Urine Dipstick--Ancillary (enter results) 08/15 22:45 Order name: EKG - Nurse/Tech; Complete Time: 23:06 me2 08/15 22:45 Order name: IV Saline Lock; Complete Time: 23:06 me2 08/15 22:45 Order name: Labs collected and sent; Complete Time: 23:06 ma2 08/15 22:45 Order name: O2 Per Protocol; Complete Time: 23:06 me2 08/15 22:45 Order name: O2 Sat Monitoring; Complete Time: 23:06 ma2 Administered Medications: 08/15 23:15 Drug: morphine 4 mg {Note: RASS 0.} Route: IVP; Site: right antecubital; 08/16 00:01 Follow up: Response: No adverse reaction; Pain is decreased; RASS: Alert and Calm (0) 08/15 23:17 Drug: Zofran (Ondansetron) 4 mg Route: IVP; Site: right antecubital; 08/16 00:01 Follow up: Response: No adverse reaction; Nausea is decreased 00:01 Drug: Ativan 1 mg {Note: RASS 0.} Route: IVP; Site: right antecubital; 00:38 Follow up: Response: Marked relief of symptoms rv Disposition: 08/16/20 00:51 Discharged to Home. Impression: Acute bronchitis. - Condition is Stable. - Discharge Instructions: Acute Bronchitis, Adult. - Prescriptions for Tessalon Perles 100 mg Oral Capsule - take 1 capsule by ORAL route every 8 hours As needed; 15 capsule. Diclofenac Sodium 75 mg Oral Tablet Sustained Release - take 1 tablet by ORAL route 2 times per day; 30 tablet. - Work release form, Medication Reconciliation Form, Thank You Letter, Antibiotic Education, Prescription Opioid Use form. - Follow up: Private Physician; When: Tomorrow; Reason: Continuance of care. Signatures: Dispatcher [employer] EDJustice Thacker, RN RN Alexx Motta MD MD ma2 Calderon Meyers RN RN rv Sandra Wiseman RN RN ll1 Corrections: (The following items were deleted from the chart) 00:50 00:48 08/16/2020 00:48 Discharged to Home. Impression: Acute bronchitis. Condition is ma2 Stable. Prescriptions for Diclofenac Sodium 75 mg Oral Tablet Sustained Release - take 1 tablet by ORAL route 2 times per day; 30 tablet. and Forms are Medication Reconciliation Form, Thank You Letter, Antibiotic Education, Prescription Opioid Use. Follow up: Private Physician; When: Tomorrow; Reason: Continuance of care. ma2 00:59 00:51 08/16/2020 00:51 Discharged to Home. Impression: Acute bronchitis. Condition is rv Stable. Prescriptions for Diclofenac Sodium 75 mg Oral Tablet Sustained Release - take 1 tablet by ORAL route 2 times per day; 30 tablet. and Forms are Medication Reconciliation Form, Thank You Letter, Antibiotic Education, Prescription Opioid Use. Follow up: Private Physician; When: Tomorrow; Reason: Continuance of care. ma2
--- NOTE | 2020-08-16 00:48 | ER ---
Nurse's Notes [facility] Name: Charity Hanks Age: 40 yrs Sex: Female : 1980 Arrival Date: 08/15/2020 Time: 20:32 Bed 6 Private MD: Diagnosis: Acute bronchitis Presentation: 08/15 20:41 Chief complaint: Patient states: CP/back is more consistent and SOB has gotten worse ll1 since last visit. Still taking z-pack. Coronavirus screen: Client denies travel out of the [place] in the last 14 days. At this time, the client does not indicate any symptoms associated with coronavirus-19. Ebola Screen: Patient denies travel to an Ebola-affected area in the 21 days before illness onset. Initial Sepsis Screen: Does the patient meet any 2 criteria? HR > 90 bpm. No. Patient's initial sepsis screen is negative. Does the patient have a suspected source of infection? Yes: Productive cough/pneumonia Dysuria/Frequency/Urgency/UTI. Risk Assessment: Do you want to hurt yourself or someone else? Patient reports no desire to harm self or others. Onset of symptoms was August 09, 2020. 20:41 Method Of Arrival: Ambulatory ll1 20:41 Acuity: CARLOS 3 ll1 Triage Assessment: 23:09 General: Appears comfortable, Behavior is calm, cooperative. Pain: Complains of pain in rv chest. Neuro: Level of Consciousness is awake, alert, obeys commands, Oriented to person, place, time, situation. Cardiovascular: Patient's skin is warm and dry. Rhythm is sinus rhythm. Respiratory: Airway is patent Respiratory effort is even, Respiratory pattern is tachypnea. Derm: Skin is intact. Historical: - Allergies: 20:41 No Known Allergies; ll1 - PMHx: 20:41 None; ll1 - PSHx: 20:41 Cholecystectomy; Tonsillectomy; ll1 - Immunization history:: Flu vaccine is not up to date. - Social history:: Smoking status: Patient reports the use of cigarette tobacco products, smokes one-half pack cigarettes per day. - Family history:: not pertinent. Screenin:09 Abuse screen: Denies threats or abuse. Denies injuries from another. Nutritional rv screening: No deficits noted. Tuberculosis screening: No symptoms or risk factors identified. Fall Risk None identified. Assessment: 23:10 Pain: Pain does not radiate. Pain began suddenly. rv Vital Signs: 20:41 BP 150 / 98; Pulse 100; Resp 24; Temp 98.5; Pulse Ox 99% ; Weight 99.79 kg; Height 5 ll1 ft. 2 in. (157.48 cm); Pain 9/10; 02 00:34 BP 99 / 54; Pulse 74; Resp 15; Pulse Ox 98% ; rv 02 20:41 Body Mass Index 40.24 (99.79 kg, 157.48 cm) ll1 ED Course: 08/15 20:32 Patient arrived in ED. cl3 20:41 Arm band placed on. ll1 20:43 Triage completed. ll1 20:49 EKG completed in triage. Results shown to MD. sg 22:20 Alexx Motta MD is Attending Physician. chuy2 22:20 Justice Day, RN is Primary Nurse. 23:08 Initial lab(s) drawn, by or, sent to lab. Inserted saline lock: 20 gauge in right rv forearm, using aseptic technique. Blood collected. Patient maintains SpO2 saturation greater than 95% on room air. 23:09 Patient has correct armband on for positive identification. rehabilitation case coordinator on. Pulse rv ox on. NIBP on. 08/16 00:18 XRAY Chest (1 view) In Process Unspecified. EDMS 00:37 No provider procedures requiring assistance completed. rv 00:59 IV discontinued, intact, bleeding controlled, No redness/swelling at site. Pressure rv dressing applied. Administered Medications: 08/15 23:15 Drug: morphine 4 mg {Note: RASS 0.} Route: IVP; Site: right antecubital; 08/16 00:01 Follow up: Response: No adverse reaction; Pain is decreased; RASS: Alert and Calm (0) 08/15 23:17 Drug: Zofran (Ondansetron) 4 mg Route: IVP; Site: right antecubital; 08/16 00:01 Follow up: Response: No adverse reaction; Nausea is decreased 00:01 Drug: Ativan 1 mg {Note: RASS 0.} Route: IVP; Site: right antecubital; 00:38 Follow up: Response: Marked relief of symptoms rv Outcome: 00:48 Discharge ordered by . ma2 00:51 Discharge ordered by MD. harris 00:59 Discharged to home ambulatory. rv 00:59 Condition: good 00:59 Discharge instructions given to patient, Instructed on discharge instructions, follow up and referral plans. medication usage, Demonstrated understanding of instructions, follow-up care, medications, Prescriptions given X 2. 00:59 Patient left the ED. rv Signatures: Dispatcher [employer] EDMS Ajit Garcia RN RN sg Habalo, Winsy RN JAMES Alexx Motta MD MD ma2 Vicente, Ronaldo, RN RN rv Lewis, Charde cl3 Sandra Wiseman RN RN ll1 Corrections: (The following items were deleted from the chart) 08/15 20:44 20:41 BP 150 / 98; Pulse 100bpm; Resp 18bpm; Pulse Ox 99%; Temp 98.5F; 99.79 kg; Height ll1 5 ft. 2 in.; BMI: 40.2; Pain 9/10; ll1
[2020-08-16 01:05] LABS: Urine Blood 2+ (NEG); Urine Glucose NEGATIVE (NEG); Urine Protein NEGATIVE (NEG); Urine Specific Gravity 1.015 (1.005-1.030); Urine pH 5.5 (5.0-7.0)
[2020-08-16 01:35] VITALS: TEMP 98.5
[2020-08-16 01:36] VITALS: BP 99/54; O2SAT 98
--- NOTE | 2020-08-16 07:51 | RAD REPORT ---
EXAM DESCRIPTION: Akiko Single View08/16/2020 12:18 am CLINICAL HISTORY: Congestion COMPARISON: August 08, 2020 FINDINGS: Lungs appear grossly clear. The heart is mildly enlarged
--- NOTE | 2020-08-16 18:42 | EKG ---
Test Date: 2020-08-15 Test Time: 20:45:07 Commercial Drone Pilot: MASHA MEASUREMENT RESULTS: Intervals: Rate: 98 ID: [id number] QRSD: 74 QT: 338 QTc: 431 [place]: P: 29 ID: [id number] QRS: -23 T: 23 INTERPRETIVE STATEMENTS: Normal sinus rhythm Right atrial enlargement Anterior infarct, age undetermined Abnormal ECG Compared to ECG 08/08/2020 20:47:22 Myocardial infarct finding now present Electronically Signed On 08-16-20 18:40:17 LASER SYSTEMS ENGINEER by Edgar Bazzi
== END 2020-08-16 00:59 | disposition home or self-care (01) ==
LOC: ER 20:32
DX: J20.9 Acute bronchitis, unspecified (principal); F17.210 Nicotine dependence, cigarettes, uncomplicated
CPT/HCPCS: 93005; 85025; 80048; 36415; 83735; 85610; 80076; 81003; 84484; 83880; 71045; J2405; 96374; 96375; 99285

== ENCOUNTER 2020-09-05 08:47 | Emergency (ER) | payer BC ==
[2020-09-05 09:59] LABS: Absolute Lymphocytes (CBC) 2.8 K/uL (0.7-4.9); Basophils % 0.6 % (0-1.3); Hematocrit 40.1 % (36.0-45.0); Lymphocytes % 25.6 % (15.3-44.8); MPV 8.1 fL (7.6-11.3); RBC Red Blood Cell Count 4.62 M/uL (3.86-4.86)
[2020-09-05] MEDS ORDERED: PROMETHAZINE INJ 25 MG/ML AMP ONE (10:03)
[2020-09-05] MEDS ORDERED: MEPERIDINE HCL 25 MG/ML SYR ONE (10:03)
[2020-09-05] MEDS ORDERED: NA CHLORIDE 0.9% 500 ML ONE (10:03)
[2020-09-05 10:05] LABS: BUN Blood Urea Nitrogen 14 mg/dL (7-18); Bicarbonate 23 mmol/L (21-32); Glucose Level 98 mg/dL (74-106); Protime INR 0.92; Sodium Level 140 mmol/L (136-145)
[2020-09-05 10:39] LABS: Urine Blood NEGATIVE (NEG); Urine Glucose NEGATIVE (NEG); Urine Protein NEGATIVE (NEG); Urine Specific Gravity <1.005 (1.005-1.030)
--- NOTE | 2020-09-05 11:22 | RAD REPORT ---
EXAM DESCRIPTION: CT - Head Brain Wo Cont - 09/05/2020 10:47 am CLINICAL HISTORY: HEADACHE COMPARISON: No comparisons TECHNIQUE: Axial 5 mm thick images of the head were obtained without IV contrast. All CT scans are performed using dose optimization technique as appropriate and may include automated exposure control or mA/KV adjustment according to patient size. FINDINGS: No intracranial hemorrhage, mass, edema or shift of mid-line structures. No acute infarcti on changes seen. No abnormal extra-axial fluid collections. Ventricles are normal. Mastoid air cells and visualized portions of the paranasal sinuses are clear. No acute bony findings. IMPRESSION: Negative non-contrast CT head examination.
--- NOTE | 2020-09-05 11:27 | RAD REPORT ---
EXAM DESCRIPTION: CT - Angio Aorta For Dissection - 09/05/2020 10:51 am CLINICAL HISTORY: abd pain;Chest pain COMPARISON: None. TECHNIQUE: Dynamically enhanced 3 mm thick images of the chest, abdomen, and upper pelvis were obtai michelet during administration of approximately 150mL Isovue 370 IV contrast. Sagittal and coronal reconst ruction images were generated using MIP and reviewed. Exam utilizes a protocol to evaluate entire cou rse of the aorta. All CT scans are performed using dose optimization technique as appropriate and may include automated exposure control or mA/KV adjustment according to patient size. FINDINGS: Aorta is normal in diameter with no dissection or other acute aortic findings. Reconstruct ion images show no significant findings. Aortic arch is 4 vessel configuration with the left vertebra l artery arising from the arch as a normal variant. Pulmonary arteries are normal as well. No cardiomegaly, pericardial thickening or pericardial effusio n. No new mass or consolidation of the lung parenchyma. Respiratory motion degradation is present affect ing the mid and lower lung moon. This could mask minimal interstitial edema or infiltrate; however, overall lung markings are less prominent than the August 08 study. No pleural thickening, pleural e ffusion or pneumothorax. Patient has a few small nonspecific mediastinal and hilar lymph nodes. Granulomatous type calcified l ymph nodes are present along the inferior margin of the right mainstem bronchus. No new mediastinal o r hilar process seen. No chest wall mass or abnormal axillary lymphadenopathy. No suspicious thoracic vertebral body or rib process identifiable Celiac, SMA and renal arteries show no suspicious findings. Solid abdominal viscera and bowel show no significant findings. Cholecystectomy clips are present. No biliary tree dilatation. No mass or ab normal lymphadenopathy. No free air, free fluid or inflammatory stranding. No urinary bladder abnorma lity. Uterus and ovaries show no suspicious findings. A small low-attenuation left adrenal mass has not changed from prior imaging and is very likely to be an incidental adenoma. Previously seen ovaria n cyst has resolved. No acute bone finding in the pelvis or lumbar spine. IMPRESSION: Negative CT scan of the aorta and pulmonary arterial tree. No new or progressive lung parenchymal process. Small mediastinal and hilar lymph nodes have not weathers ged. No acute CT abdomen or pelvis finding.
[2020-09-05] MEDS ORDERED: MORPHINE 4 MG/ML SYR ONE (11:29)
--- NOTE | 2020-09-05 12:22 | ER ---
Nurse's Notes [facility] Name: Charity Hanks Age: 40 yrs Sex: Female : 1980 Arrival Date: 09/05/2020 Time: 09:02 Bed 4 Private MD: Diagnosis: Unspecified abdominal pain;Headache Presentation: 09/05 09:04 Chief complaint: Chief complaint: Patient states: "I have a headache to the back of my aa5 head that radiated down to my neck and all the way down my back". Pt also reports generalized abd pain and nausea. 09:04 Coronavirus screen: headache, nausea, Client presents with at least one sign or symptom aa5 that may indicate coronavirus-19. Standard/surgical mask placed on the client. Provider contacted for isolation considerations. Ebola Screen: Patient negative for fever greater than or equal to 101.5 degrees Fahrenheit, and additional compatible Ebola Virus Disease symptoms. Initial Sepsis Screen: Does the patient meet any 2 criteria? No. Patient's initial sepsis screen is negative. Does the patient have a suspected source of infection? No. Patient's initial sepsis screen is negative. Risk Assessment: Do you want to hurt yourself or someone else? Patient reports no desire to harm self or others. Onset of symptoms was September 2020. 09:04 Acuity: CARLOS 3 aa5 09:04 Method Of Arrival: Ambulatory aa5 PRENATAL GENETIC COUNSELOR: 11:00 [facility] 08/14/2020 jl7 Historical: - Allergies: 09:21 No Known Allergies; aa5 - Home Meds: 10:04 None [Active]; jl7 - PMHx: 10:04 PTSD; jl7 - PSHx: 09:21 Cholecystectomy; Tonsillectomy; aa5 - Immunization history:: Adult Immunizations. - Social history:: Smoking status: Patient denies any tobacco usage or history of. - Family history:: not pertinent. - Hospitalizations: : No recent hospitalization is reported. Screenin:30 Tuberculosis screening: No symptoms or risk factors identified. jl7 09:59 Abuse screen: Denies threats or abuse. Nutritional screening: No deficits noted. Fall jl7 Risk None identified. Assessment: 09:30 General: Appears in no apparent distress. uncomfortable, Behavior is cooperative, jl7 appropriate for age, anxious. Pain: Complains of pain in base of the skull Pain radiates to thoracic area Pain currently is 8 out of 10 on a pain scale. Quality of pain is described as aching, Pain began 3 hours ago. Is continuous. Pain: Complains of pain in abdomen diffusely Pain currently is 8 out of 10 on a pain scale. Quality of pain is described as squeezing. Neuro: Level of Consciousness is awake, alert, obeys commands, Oriented to person, place, time, situation. Cardiovascular: Patient's skin is warm and dry. Respiratory: Airway is patent Respiratory effort is even, unlabored, Respiratory pattern is regular, symmetrical. GI: Abdomen is round non-distended, Abd is soft X 4 quads Abdomen is tender to palpation X 4 quads. Derm: Skin is pink, warm \\T\\ dry. 11:18 Reassessment: Pt retunred from CT, reports pain is unchanged from previous, requesting jl7 additional pain medication, ERD notified, VO for 4mg Morphine IVP, medicated as ordered. 12:15 Reassessment: Patient appears in no apparent distress at this time. Patient and/or jl7 family updated on plan of care and expected duration. Pain level reassessed. Patient is alert, oriented x 3, equal unlabored respirations, skin warm/dry/pink. Patient states symptoms have improved. Vital Signs: 09:05 BP 148 / 103; Pulse 93; Resp 16 S; Temp 98.9(O); Pulse Ox 100% on R/A; aa5 09:59 BP 136 / 93; Pulse 88; Resp 24; Pulse Ox 100% ; Pain 8/10; jl7 10:13 BP 128 / 99; Pulse 82; Resp 17; Pulse Ox 100% ; jl7 11:20 BP 136 / 105; Pulse 74; Resp 15; Pulse Ox 100% ; jl7 12:15 BP 108 / 71; Pulse 75; Resp 15; Pulse Ox 100% ; jl7 12:23 BP 108 / 71; lead burner helper Course: 09:02 Patient arrived in ED. ds1 09:04 Arm band placed on. aa5 09:05 Carmine Jackson MD is Attending Physician. rn 09:12 Hector Rosen, JAMES is Primary Nurse. jl7 09:20 Triage completed. aa5 09:30 laboratory monitor on. Pulse ox on. NIBP on. jl7 09:59 Patient has correct armband on for positive identification. jl7 09:59 Bed in low position. Call light in reach. jl7 09:59 Initial lab(s) drawn, by me, sent to lab. Inserted saline lock: 20 gauge in left wrist, jl7 using aseptic technique. Blood collected. 10:46 CT Head Brain wo Cont In Process Unspecified. EDMS 10:52 CT Aorta for Dissection In Process Unspecified. EDMS 12:32 No provider procedures requiring assistance completed. IV discontinued, intact, jl7 bleeding controlled, No redness/swelling at site. Pressure dressing applied. Administered Medications: 09:50 Drug: NS 0.9% 500 ml Route: IV; Rate: bolus; Site: left wrist; jl7 10:45 Follow up: Response: No adverse reaction; IV Status: Completed infusion; IV Intake: jl7 500ml 09:51 Drug: Phenergan 12.5 mg Route: IVP; Site: left wrist; jl7 11:19 Follow up: Response: No adverse reaction jl7 09:52 Drug: Demerol 25 mg Route: IVP; Site: left wrist; jl7 10:20 Follow up: Response: No adverse reaction; Pain is unchanged, physician notified jl7 11:15 Drug: morphine 4 mg Route: IVP; Site: left wrist; jl7 11:45 Follow up: Response: No adverse reaction; Pain is decreased jl7 Intake: 10:45 IV: 500ml; Total: 500ml. jl7 Outcome: 12:22 Discharge ordered by . rn 12:32 Discharged to home ambulatory. jl7 12:32 Condition: stable 12:32 Discharge instructions given to patient, Instructed on discharge instructions, follow up and referral plans. Demonstrated understanding of instructions, follow-up care. 12:33 Patient left the ED. jl7 Signatures: Dispatcher [employer] EDNM JosephYue ds1 Carmine Jackson MD MD rn Calderon, Audri RN RN aa5 Hector Rosen RN RN jl7
--- NOTE | 2020-09-05 12:22 | EDPHYS ---
Physician Documentation [facility] Name: Charity Hanks Age: 40 yrs Sex: Female : 1980 Arrival Date: 09/05/2020 Time: 09:02 Bed 4 Private MD: ED Physician Carmine Jackson HPI: 09/05 10:32 This 40 yrs old Female presents to ER via Ambulatory with complaints of rn Abdominal Pain, Headache, Nausea. 10:32 The patient presents with abdominal pain that is diffuse. Onset: The symptoms/episode rn began/occurred today. The symptoms radiate to face, scalp and chest. The symptoms are described as achy. Modifying factors: The symptoms are alleviated by nothing, the symptoms are aggravated by touching the area. Severity of pain: At its worst the pain was mild in the emergency department the pain is unchanged. The patient has experienced similar episodes in the past. Reports has had similar abd pain in past, no diagnosis, has been evaluated for it here, but today shoots up and causing posterior headache and right sided pain. + nausea but no sob/cough/vomiting. Reports chronic diarrhea. No blood in stool. . 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 - Social history:: Smoking status: Patient denies any tobacco usage or history of. - Family history:: not pertinent. - Hospitalizations: : No recent hospitalization is reported. ROS: 10:32 Constitutional: Negative for fever, chills, and weight loss, Eyes: Negative for injury, rn pain, redness, and discharge, ENT: Negative for injury, pain, and discharge, Neck: Negative for injury, pain, and swelling, Cardiovascular: Negative for chest pain, palpitations, and edema, Respiratory: Negative for shortness of breath, cough, wheezing, and pleuritic chest pain, Abdomen/GI: + abd pain and nausea Back: Negative for injury and pain, : Negative for injury, bleeding, discharge, and swelling, MS/Extremity: Negative for injury and deformity, Skin: Negative for injury, rash, and discoloration, Neuro: Negative for weakness, numbness, tingling, and seizure. Exam: 10:32 Constitutional: This is a well developed, well nourished patient who is awake, alert, rn wearing sunglasses, holding abdomen. Head/Face: Normocephalic, atraumatic. Neck: NO midline tenderness, no meningismus. Cardiovascular: Regular rate and rhythm. No pulse deficits. Respiratory: No increased work of breathing, no retractions or nasal flaring. Abdomen/GI: soft, mild diffuse tenderness, no rebound Skin: Warm, dry MS/ Extremity: Pulses equal, no cyanosis Neuro: Awake and alert, GCS 15, normal gait. Moves all 4 ext with 5/5 strength and normal sensation. Vital Signs: 09:05 BP 148 / 103; Pulse 93; Resp 16 S; Temp 98.9(O); Pulse Ox 100% on R/A; aa5 09:59 BP 136 / 93; Pulse 88; Resp 24; Pulse Ox 100% ; Pain 8/10; jl7 10:13 BP 128 / 99; Pulse 82; Resp 17; Pulse Ox 100% ; jl7 11:20 BP 136 / 105; Pulse 74; Resp 15; Pulse Ox 100% ; jl7 12:15 BP 108 / 71; Pulse 75; Resp 15; Pulse Ox 100% ; jl7 12:23 BP 108 / 71; rn MDM: 09:05 Patient medically screened. rn 12:20 Differential diagnosis: Cholelithiasis, diverticulitis, gastritis, gastroesophageal rn reflux disease, non-specific abd pain, pancreatitis, Peptic Ulcer Disease, Ureterolithiasis. Data reviewed: vital signs, nurses notes, lab test result(s), radiologic studies, CT scan, and as a result, I will discharge patient. Counseling: I had a detailed discussion with the patient and/or guardian regarding: the historical points, exam findings, and any diagnostic results supporting the discharge/admit diagnosis, lab results, radiology results, the need for outpatient follow up, to return to the emergency department if symptoms worsen or persist or if there are any questions or concerns that arise at home. Response to treatment: the patient's symptoms have mildly improved after treatment, and as a result, I will discharge patient. Special discussion: Based on the patient's Hx, exam, and Dx evaluation, there is no indication for emergent surgery or inpatient Tx. It is understood by the patient/guardian that if the Sx's persist or worsen they need to return immediately for re-evaluation. I discussed with the patient/guardian in detail that at this point there is no indication for admission to the hospital. It is understood, however, that if the symptoms persist or worsen the patient needs to return immediately for re-evaluation. ED course: NO acute findings in imaging or bloodwork, will dc home with pcp f/u as needed. Return precautions given and understood. . 12:22 Counseling: I had a detailed discussion with the patient and/or guardian regarding: the rn presence of at least one elevated blood pressure reading (>120/80) during this emergency department visit. Special discussion: I have referred the patient to see his PCP for further evaluation of high blood pressure. 09/05 09:23 Order name: CBC with Diff; Complete Time: 10:15 rn 09/05 09:23 Order name: Basic Metabolic Panel; Complete Time: 10:15 rn 09/05 09:23 Order name: Protime (+inr); Complete Time: 10:15 rn 09/05 09:23 Order name: Ptt, Activated; Complete Time: 10:15 rn 09/05 10:32 Order name: Urine Dipstick--Ancillary (enter results); Complete Time: 11:37 em1 09/05 09:23 Order name: CT Head Brain wo Cont; Complete Time: 11:37 rn 09/05 09:23 Order name: CT Aorta for Dissection; Complete Time: 11:37 rn 09/05 09:23 Order name: IV Start; Complete Time: 09:44 rn Administered Medications: 09:50 Drug: NS 0.9% 500 ml Route: IV; Rate: bolus; Site: left wrist; jl7 10:45 Follow up: Response: No adverse reaction; IV Status: Completed infusion; IV Intake: jl7 500ml 09:51 Drug: Phenergan 12.5 mg Route: IVP; Site: left wrist; jl7 11:19 Follow up: Response: No adverse reaction jl7 09:52 Drug: Demerol 25 mg Route: IVP; Site: left wrist; jl7 10:20 Follow up: Response: No adverse reaction; Pain is unchanged, physician notified jl7 11:15 Drug: morphine 4 mg Route: IVP; Site: left wrist; jl7 11:45 Follow up: Response: No adverse reaction; Pain is decreased jl7 Disposition: 09/05/20 12:22 Discharged to Home. Impression: Unspecified abdominal pain, Headache. - Condition is Stable. - Discharge Instructions: Abdominal Pain, Adult, General Headache Without Cause, Hypertension. - Medication Reconciliation Form, Thank You Letter, Antibiotic Education, Prescription Opioid Use form. - Follow up: Private Physician; When: As needed; Reason: Recheck today's complaints, Re-evaluation by your physician. - Problem is new. - Symptoms have improved. Signatures: Dispatcher [employer] [facility] Carmine Jackson MD MD rn Yamileth Jolly, RN RN aa5 Hector Rosen RN RN jl7 Corrections: (The following items were deleted from the chart) 11:38 10:31 TEST, SERUM+[id number].LAB.BRZ ordered. [facility] 12:33 12:22 09/05/2020 12:22 Discharged to Home. Impression: Unspecified abdominal pain; jl7 Headache. Condition is Stable. Forms are Medication Reconciliation Form, Thank You Letter, Antibiotic Education, Prescription Opioid Use. Follow up: Private Physician; When: As needed; Reason: Recheck today's complaints, Re-evaluation by your physician. Problem is new. Symptoms have improved. rn
[2020-09-05 13:43] VITALS: TEMP 98.9; O2SAT 100
[2020-09-05 13:48] VITALS: BP 108/71
== END 2020-09-05 12:33 | disposition home or self-care (01) ==
LOC: ER 08:47
DX: R51.9 Headache, unspecified (principal)
CPT/HCPCS: 96361; 85025; 80048; 36415; 85610; 85730; 81003; 70450; 71275; 74175; 96375; 96374; 99284; Q9967; J2550; J2175; J7040

== ENCOUNTER 2020-09-07 17:22 | Emergency (ER) | payer BC ==
[2020-09-07] MEDS ORDERED: ONDANSETRON 4 MG/2 ML VIAL ONE (18:42)
[2020-09-07] MEDS ORDERED: MORPHINE 4 MG/ML SYR ONE (18:42)
--- NOTE | 2020-09-07 18:54 | RAD REPORT ---
EXAM DESCRIPTION: Akiko Single View09/07/2020 6:44 pm CLINICAL HISTORY: Chest pain COMPARISON: August 2020 FINDINGS: The lungs appear clear of acute infiltrate. The heart is normal size IMPRESSION: No acute abnormalities displayed
--- NOTE | 2020-09-07 18:54 | RAD REPORT ---
EXAM DESCRIPTION: RAD - Wrist Left 3 View - 09/07/2020 6:44 pm CLINICAL HISTORY: Left wrist pain status post injury FINDINGS: No fracture or dislocation is seen. If the patient continues to have symptoms to suggest an occult fracture then a followup plain film se can in 7 days would be recommended
[2020-09-07 19:03] LABS: Absolute Lymphocytes (CBC) 3.1 K/uL (0.7-4.9); Basophils % 0.6 % (0-1.3); Hematocrit 39.4 % (36.0-45.0); Lymphocytes % 27.7 % (15.3-44.8); MPV 8.1 fL (7.6-11.3); RBC Red Blood Cell Count 4.53 M/uL (3.86-4.86)
[2020-09-07 19:09] LABS: Protime INR 0.97
[2020-09-07 19:23] LABS: ALT/SGPT 61 U/L (12-78); AST/SGOT 11 U/L (15-37); Albumin 3.5 g/dL (3.4-5.0); Alkaline Phosphatase 96 U/L (45-117); BUN Blood Urea Nitrogen 16 mg/dL (7-18); Bicarbonate 21 mmol/L (21-32); Bilirubin Direct < 0.1 mg/dL (0-0.2); Bilirubin Total 0.1 mg/dL (0.2-1.0); Glucose Level 92 mg/dL (74-106); Magnesium 1.9 mg/dL (1.8-2.4); NT PRO-BNP 15 pg/mL (<125); Potassium 3.8 mmol/L (3.5-5.1); Protein, Total 7.2 g/dL (6.4-8.2); Sodium Level 140 mmol/L (136-145); Troponin (Emerg Dept Use Only) < 0.02 ng/mL (0.0-0.045)
[2020-09-07] MEDS ORDERED: KETOROLAC 30 MG/ML INJ ONE (20:06)
[2020-09-07] MEDS ORDERED: LORazepam 2 MG/ML VIAL ONE (20:11)
--- NOTE | 2020-09-07 20:11 | ER ---
Nurse's Notes [facility] Name: Charity Hanks Age: 40 yrs Sex: Female : 1980 Arrival Date: 09/07/2020 Time: 17:25 Bed 4 Private MD: Diagnosis: Other and unspecified sprain of wrist;Chest pain, unspecified Presentation: 09/07 17:38 Chief complaint: Patient states: Accidentally got L wrist slammed in car door on ll1 Saturday. Was seen at [facility] for this, splint in place. No breaks per x-ray. States pain is radiating into fingers and up L arm now. PMS intact. Chest pain and near syncope feeling for 1 days. + nausea. Coronavirus screen: Client denies travel out of the [place] in the last 14 days. At this time, the client does not indicate any symptoms associated with coronavirus-19. Ebola Screen: Patient denies travel to an Ebola-affected area in the 21 days before illness onset. Initial Sepsis Screen: Does the patient meet any 2 criteria? HR > 90 bpm. No. Patient's initial sepsis screen is negative. Does the patient have a suspected source of infection? Yes: Bone or joint infection. Risk Assessment: Do you want to hurt yourself or someone else? Patient reports no desire to harm self or others. Onset of symptoms was September 05, 2020. 17:38 Method Of Arrival: Wheelchair ll1 17:38 Acuity: CARLOS 3 ll1 Historical: - Allergies: 17:41 No Known Allergies; ll1 - PMHx: 17:41 PTSD; ll1 - PSHx: 17:41 Cholecystectomy; Tonsillectomy; ll1 - Immunization history:: Flu vaccine is up to date. - Social history:: Smoking status: Patient reports the use of cigarette tobacco products, smokes one-half pack cigarettes per day. Screenin:04 Abuse screen: Denies threats or abuse. Nutritional screening: No deficits noted. vg1 Tuberculosis screening: No symptoms or risk factors identified. Fall Risk No fall in past 12 months (0 pts). No secondary diagnosis (0 pts). IV access (20 points). Ambulatory Aid- None/Bed Rest/Nurse Assist (0 pts). Gait- Normal/Bed Rest/Wheelchair (0 pts) Mental Status- Oriented to own ability (0 pts). Total Browne Fall Scale indicates No Risk (0-24 pts). Assessment: 17:45 General: Appears in no apparent distress. uncomfortable, Behavior is calm, cooperative. vg1 Pain: Complains of pain in Left wrist and chest Pain currently is 9 out of 10 on a pain scale. Neuro: Level of Consciousness is awake, alert, obeys commands, Oriented to person, place, time, situation. Cardiovascular: Patient's skin is warm and dry. Respiratory: Airway is patent Respiratory effort is even, unlabored, Respiratory pattern is regular, symmetrical. GI: No signs and/or symptoms were reported involving the gastrointestinal system. : No signs and/or symptoms were reported regarding the genitourinary system. EENT: No signs and/or symptoms were reported regarding the EENT system. Derm: Skin is intact, is healthy with good turgor. Derm: Skin Bruising that is on left wrist. Musculoskeletal: Range of motion: limited in left wrist. Vital Signs: 17:38 BP 131 / 91; Pulse 102; Resp 17; Temp 99.3; Pulse Ox 97% ; Weight 99.79 kg; Height 5 ll1 ft. 2 in. (157.48 cm); Pain 9/10; 19:00 BP 135 / 89; Pulse 96; Resp 16; Pulse Ox 97% on R/A; rv 20:00 BP 127 / 86; Pulse 89; Resp 18; Pulse Ox 98% on R/A; rv 17:38 Body Mass Index 40.24 (99.79 kg, 157.48 cm) ll1 ED Course: 17:25 Patient arrived in ED. am2 17:41 Triage completed. ll1 17:41 Arm band placed on. ll1 17:48 Rae Shah, RN is Primary Nurse. vg1 18:17 Henry Mclain PA is PHCP. [facility] 18:17 Wilfredo Asencio MD is Attending Physician. denise 18:50 Initial lab(s) drawn, by pr, sent to lab. Inserted saline lock: 20 gauge in right vg1 forearm, using aseptic technique. Blood collected. 19:04 Patient has correct armband on for positive identification. Bed in low position. Call 1 light in reach. Side rails up X2. 20:11 Ajit Hermosillo MD is Referral Physician. [facility] 20:23 No provider procedures requiring assistance completed. IV discontinued, intact, rv bleeding controlled, No redness/swelling at site. Pressure dressing applied. Administered Medications: 19:01 Drug: morphine 4 mg Route: IVP; Site: right forearm; vg1 20:21 Follow up: Response: No adverse reaction; RASS: Alert and Calm (0) rv 19:01 Drug: Zofran (Ondansetron) 4 mg Route: IVP; Site: right forearm; vg1 20:21 Follow up: Response: No adverse reaction rv 19:57 Drug: Ketorolac 30 mg Route: IVP; Site: right forearm; rv 20:20 Follow up: Response: No adverse reaction; Marked relief of symptoms; Pain is decreased rv 19:57 Drug: Ativan 1 mg Route: IVP; Site: right forearm; rv 20:20 Follow up: Response: No adverse reaction; Marked relief of symptoms; Pain is decreased; rv RASS: Alert and Calm (0) Outcome: 20:11 Discharge ordered by MD. osvaldo 20:23 Discharged to home ambulatory. rv 20:23 Condition: good 20:23 Discharge instructions given to patient, Instructed on discharge instructions, follow up and referral plans. medication usage, Demonstrated understanding of instructions, follow-up care, medications, Prescriptions given X 2. 20:24 Patient left the ED. rv Signatures: Henry Mclain PA PA jmm Moreno, Amanda am2 Calderon Meyers, RN RN rv Rae Shah, RN RN vg1 Sandra Wiseman RN RN ll1
--- NOTE | 2020-09-07 20:12 | EDPHYS ---
Physician Documentation [facility] Name: Charity Hanks Age: 40 yrs Sex: Female : 1980 Arrival Date: 09/07/2020 Time: 17:25 Bed 4 Private MD: ED Physician Wilfredo Asencio HPI: 09/07 18:17 This 40 yrs old Female presents to ER via Wheelchair with complaints of Arm jmm Pain, Arm Injury. 18:17 The patient or guardian complains of injury, pain. Onset: The symptoms/episode jmm began/occurred acutely, 2 day(s) ago. Modifying factors: The symptoms are alleviated by nothing. the symptoms are aggravated by nothing. This is a 40 year old female with a history of ptsd that presents to the ED with complaints of left forearm, wrist pain which occurred when it was slammed in the door 2 days ago. Initial xray negative. Patient states now the pain has been so bad it has given her chest pain. . Historical: - Allergies: 17:41 No Known Allergies; ll1 - PMHx: 17:41 PTSD; ll1 - PSHx: 17:41 Cholecystectomy; Tonsillectomy; ll1 - Immunization history:: Flu vaccine is up to date. - Social history:: Smoking status: Patient reports the use of cigarette tobacco products, smokes one-half pack cigarettes per day. ROS: 18:17 Constitutional: Negative for fever, chills, and weight loss, Cardiovascular: Negative jmm for chest pain, palpitations, and edema, Respiratory: Negative for shortness of breath, cough, wheezing, and pleuritic chest pain. 18:17 MS/extremity: Positive for injury or acute deformity, pain. 18:17 All other systems are negative. Exam: 18:17 Constitutional: This is a well developed, well nourished patient who is awake, alert, jmm and in no acute distress. Head/Face: atraumatic. Eyes: EOMI, no conjunctival erythema appreciated ENT: Moist Mucus Membranes Neck: Trachea midline, Supple Chest/axilla: Normal chest wall appearance and motion. Cardiovascular: Regular rate and rhythm. No edema appreciated Respiratory: Normal respirations, no respiratory distress appreciated Abdomen/GI: Non distended, soft Back: Normal ROM Skin: General appearance color normal 18:17 Musculoskeletal/extremity: no swelling noted to the left forearm/wrist, compartments are soft, full radial pulse, < 2 sec cap refill, NVI. 18:17 Skin: Appearance: Color: normal in color. 18:17 Neuro: Orientation: is normal, Mentation: is normal, Memory: is normal. 18:17 Psych: Behavior/mood is pleasant, cooperative. Vital Signs: 17:38 BP 131 / 91; Pulse 102; Resp 17; Temp 99.3; Pulse Ox 97% ; Weight 99.79 kg; Height 5 ll1 ft. 2 in. (157.48 cm); Pain 9/10; 19:00 BP 135 / 89; Pulse 96; Resp 16; Pulse Ox 97% on R/A; rv 20:00 BP 127 / 86; Pulse 89; Resp 18; Pulse Ox 98% on R/A; rv 17:38 Body Mass Index 40.24 (99.79 kg, 157.48 cm) ll1 MDM: 18:17 Patient medically screened. [facility] 20:10 Data reviewed: vital signs, nurses notes. Counseling: I had a detailed discussion with osvaldo the patient and/or guardian regarding: the historical points, exam findings, and any diagnostic results supporting the discharge/admit diagnosis, lab results, radiology results, the need for outpatient follow up, to return to the emergency department if symptoms worsen or persist or if there are any questions or concerns that arise at home. ED course: Pain relieved in the ED. NO signs of compartments syndrome. Patient is advised to follow up with ortho for further evaluation. Patient understood and agrees with the plan of care. . 09/07 18:21 Order name: Basic Metabolic Panel [facility] 09/07 18:21 Order name: CBC with Diff [facility] 09/07 18:21 Order name: LFT's [facility] 09/07 18:21 Order name: Magnesium [facility] 09/07 18:21 Order name: NT PRO-BNP [facility] 09/07 18:21 Order name: PT-INR [facility] 09/07 18:21 Order name: Troponin (emerg Dept Use Only) [facility] 09/07 19:06 Order name: CBC with Automated Diff; Complete Time: 19:27 EDW[facility] 09/07 19:19 Order name: Protime (+INR); Complete Time: 19:27 [facility] 09/07 19:23 Order name: Basic Metabolic Panel; Complete Time: 19:27 EDMS 09/07 19:23 Order name: Liver (Hepatic) Function; Complete Time: 19:27 EDMS 09/07 19:23 Order name: Troponin (Emerg Dept Use Only); Complete Time: 19:27 EDMS 09/07 19:23 Order name: NT PRO-BNP; Complete Time: 19:27 EDMS 09/07 19:23 Order name: Magnesium; Complete Time: 19:27 [facility] 09/07 18:21 Order name: XRAY Chest (1 view) [facility] 09/07 18:21 Order name: EKG; Complete Time: 18:[address] [facility] 09/07 18:21 Order name: Cardiac monitoring; Complete Time: 18:[address] [facility] 09/07 18:21 Order name: EKG - Nurse/Tech; Complete Time: 18:[address] [facility] 09/07 18:21 Order name: IV Saline Lock; Complete Time: 19:[address] [facility] 09/07 18:21 Order name: Labs collected and sent; Complete Time: 19:[address] [facility] 09/07 18:21 Order name: O2 Per Protocol; Complete Time: 18:[address] [facility] 09/07 18:21 Order name: Wrist Left (3 View) XRAY [facility] 09/07 18:55 Order name: RAD; Complete Time: 19:27 [facility] 09/07 18:55 Order name: RAD; Complete Time: 19:27 [facility] 09/07 19:46 Order name: D-Dimer [facility] 09/07 20:01 Order name: D-Dimer; Complete Time: 20:07 [facility] 09/07 18:21 Order name: O2 Sat Monitoring; Complete Time: 18:21 jm Administered Medications: 19:01 Drug: morphine 4 mg Route: IVP; Site: right forearm; vg1 20:21 Follow up: Response: No adverse reaction; RASS: Alert and Calm (0) rv 19:01 Drug: Zofran (Ondansetron) 4 mg Route: IVP; Site: right forearm; vg1 20:21 Follow up: Response: No adverse reaction rv 19:57 Drug: Ketorolac 30 mg Route: IVP; Site: right forearm; rv 20:20 Follow up: Response: No adverse reaction; Marked relief of symptoms; Pain is decreased rv 19:57 Drug: Ativan 1 mg Route: IVP; Site: right forearm; rv 20:20 Follow up: Response: No adverse reaction; Marked relief of symptoms; Pain is decreased; rv RASS: Alert and Calm (0) Disposition: 09/08 07:26 Co-signature as Attending Physician, Wilfredo Asencio MD I agree with the assessment and kdr plan of care. Disposition: 09/07/20 20:11 Discharged to Home. Impression: Other and unspecified sprain of wrist, Chest pain, unspecified. - Condition is Stable. - Discharge Instructions: Nonspecific Chest Pain, Wrist Sprain. - Prescriptions for Ibuprofen 800 mg Oral Tablet - take 1 tablet by ORAL route every 12 hours As needed take with food; 20 tablet. orphenadrine citrate 100 mg Oral Tablet Sustained Release - take 1 tablet by ORAL route 2 times per day As needed; 20 tablet. - Medication Reconciliation Form, Thank You Letter, Antibiotic Education, Prescription Opioid Use form. - Follow up: Ajit Hermosillo MD; When: 2 - 3 days; Reason: Recheck today's complaints, Continuance of care, Re-evaluation by your physician. Signatures: Dispatcher [employer] EDMS Wilfredo Asencio MD MD [facility] Henry Mclain PA PA jmm Vicente, Ronaldo RN RN rv Rae Shah, RN RN vg1 Sandra Wiseman RN RN ll1 Corrections: (The following items were deleted from the chart) 09/07 20:24 20:11 09/07/2020 20:11 Discharged to Home. Impression: Other and unspecified sprain of rv wrist; Chest pain, unspecified. Condition is Stable. Forms are Medication Reconciliation Form, Thank You Letter, Antibiotic Education, Prescription Opioid Use. Follow up: Ajit Hermosillo; When: 2 - 3 days; Reason: Recheck today's complaints, Continuance of care, Re-evaluation by your physician. osvaldo
[2020-09-08 10:23] VITALS: BP 127/86; TEMP 99.3; O2SAT 98
== END 2020-09-07 20:24 | disposition home or self-care (01) ==
LOC: ER 17:22
DX: S63.592A Other specified sprain of left wrist, initial encounter (principal); R07.9 Chest pain, unspecified; F17.210 Nicotine dependence, cigarettes, uncomplicated; W22.8XXA Striking against or struck by other objects, initial encounter; Y93.9 Activity, unspecified; Y92.9 Unspecified place or not applicable
CPT/HCPCS: 93005; 85025; 80048; 36415; 83735; 85610; 85379; 80076; 84484; 83880; 71045; 73110; 96375; 96374; 99284; J2405

== ENCOUNTER 2020-09-08 20:25 | Emergency (ER) | payer BC ==
[2020-09-08] MEDS ORDERED: MEPERIDINE HCL 25 MG/ML SYR ONE (21:44)
[2020-09-08] MEDS ORDERED: ONDANSETRON 4 MG/2 ML VIAL ONE (21:44)
[2020-09-08] MEDS ORDERED: NA CHLORIDE 0.9% 1,000 ML ONE (21:44)
[2020-09-08 22:07] LABS: Barbiturates NEGATIVE (NEGATIVE); Benzodiazepines POSITIVE (NEGATIVE); Cocaine NEGATIVE (NEGATIVE); METHAMPHETAM NEGATIVE (NEGATIVE); Methadone NEGATIVE (NEGATIVE); Opiates NEGATIVE (NEGATIVE); Phencyclidine NEGATIVE (NEGATIVE); THC Cannibis NEGATIVE (NEGATIVE)
[2020-09-08 22:16] LABS: Urine Blood NEGATIVE (NEG); Urine Glucose NEGATIVE (NEG); Urine Protein NEGATIVE (NEG); Urine Specific Gravity >1.030 (1.005-1.030); Urine pH 5.5 (5.0-7.0)
[2020-09-08 22:28] LABS: Absolute Lymphocytes (CBC) 3.7 K/uL (0.7-4.9); Basophils % 0.4 % (0-1.3); Hematocrit 37.9 % (36.0-45.0); Lymphocytes % 33.7 % (15.3-44.8); MPV 8.3 fL (7.6-11.3); RBC Red Blood Cell Count 4.35 M/uL (3.86-4.86)
[2020-09-08 22:29] LABS: Protime INR 0.93
[2020-09-08] MEDS ORDERED: LORazepam 2 MG/ML VIAL ONE (22:34)
[2020-09-08 22:54] LABS: ALT/SGPT 57 U/L (12-78); AST/SGOT 21 U/L (15-37); Albumin 3.5 g/dL (3.4-5.0); Alkaline Phosphatase 114 U/L (45-117); BUN Blood Urea Nitrogen 16 mg/dL (7-18); Bicarbonate 20 mmol/L (21-32); Bilirubin Direct < 0.1 mg/dL (0-0.2); Bilirubin Total 0.2 mg/dL (0.2-1.0); Glucose Level 109 mg/dL (74-106); Magnesium 2.1 mg/dL (1.8-2.4); Potassium 3.8 mmol/L (3.5-5.1); Sodium Level 144 mmol/L (136-145); Troponin (Emerg Dept Use Only) < 0.02 ng/mL (0.0-0.045)
[2020-09-08] MEDS ORDERED: MORPHINE 2 MG/ML SYR ONE (23:39)
--- NOTE | 2020-09-09 00:17 | ER ---
Nurse's Notes [facility] Name: Charity Hanks Age: 40 yrs Sex: Female : 1980 Arrival Date: 09/08/2020 Time: 20:27 Bed 6 Private MD: Diagnosis: Contusion of left forearm;Headache;Fall on same level from slipping, tripping and stumbling;Other chest pain Presentation: 09/08 20:57 Chief complaint: Patient states: CP continues since visit here yesterday. Left arm is ll1 still painful and her fingers feel numb still. All of this never got better after being seen last night. No fever. Coronavirus screen: Client denies travel out of the [place] in the last 14 days. At this time, the client does not indicate any symptoms associated with coronavirus-19. Ebola Screen: Patient denies travel to an Ebola-affected area in the 21 days before illness onset. Initial Sepsis Screen: Does the patient meet any 2 criteria? HR > 90 bpm. No. Patient's initial sepsis screen is negative. Does the patient have a suspected source of infection? No. Patient's initial sepsis screen is negative. Risk Assessment: Do you want to hurt yourself or someone else? Patient reports no desire to harm self or others. Onset of symptoms is unknown. 20:57 Method Of Arrival: Wheelchair ll1 20:57 Acuity: CARLOS 3 ll1 Historical: - Allergies: 20:57 No Known Allergies; ll1 - PMHx: 20:57 PTSD; ll1 - PSHx: 20:57 Cholecystectomy; Tonsillectomy; ll1 - Immunization history:: Flu vaccine is up to date. - Social history:: Smoking status: Patient reports the use of cigarette tobacco products, smokes one-half pack cigarettes per day. Screenin:18 Abuse screen: Denies threats or abuse. Denies injuries from another. Nutritional mg2 screening: No deficits noted. Tuberculosis screening: No symptoms or risk factors identified. Fall Risk No IV (0 pts). Assessment: 21:16 General: Appears in no apparent distress. comfortable, Behavior is calm, cooperative. mg2 Pain: Complains of pain in chest, left arm and left leg Pain does not radiate. Quality of pain is described as aching, Pain began gradually. Neuro: Level of Consciousness is awake, alert, obeys commands, Oriented to person, place, time, situation. Cardiovascular: Capillary refill < 3 seconds Patient's skin is warm and dry. Respiratory: Airway is patent Trachea midline. GI: No signs and/or symptoms were reported involving the gastrointestinal system. : No signs and/or symptoms were reported regarding the genitourinary system. EENT: No signs and/or symptoms were reported regarding the EENT system. Derm: Skin is intact, is healthy with good turgor, Skin is pink, warm \T\ dry. normal. Musculoskeletal: Circulation, motion, and sensation intact. Capillary refill < 3 seconds. 22:45 Reassessment: Patient appears in no apparent distress at this time. Patient and/or mg2 family updated on plan of care and expected duration. Pain level reassessed. Patient is alert, oriented x 3, equal unlabored respirations, skin warm/dry/pink. Vital Signs: 20:57 Pulse 103; Resp 20; Temp 98.2; Pulse Ox 97% ; Weight 99.79 kg; Height 5 ft. 2 in. ll1 (157.48 cm); Pain 10/10; 20:57 BP 113 / 83; ll1 03 00:19 BP 120 / 70; Pulse 80; Resp 18; Temp 98(O); Pulse Ox 100% on R/A; mg2 03 20:57 Body Mass Index 40.24 (99.79 kg, 157.48 cm) ll1 ED Course: 09/08 20:27 Patient arrived in ED. cf2 20:57 Arm band placed on Patient placed in an exam room, on a stretcher. ll1 20:59 Triage completed. ll1 21:02 Jarrod Bradley, JAMES is Primary Nurse. mg2 21:08 Mayank Arvizu PA is PHCP. cp 21:08 Mayank Btuler MD is Attending Physician. cp 21:19 Patient has correct armband on for positive identification. surveillance system monitor on. Pulse mg2 ox on. NIBP on. Door closed. Warm blanket given. 21:19 No provider procedures requiring assistance completed. Patient maintains SpO2 mg2 saturation greater than 95% on room air. 21:19 EKG done, by ED staff. mg2 21:39 Inserted saline lock: 20 gauge in right forearm, using aseptic technique. oe 22:05 XRAY Chest (1 view) In Process Unspecified. EDMS 22:44 CT Head C Spine In Process Unspecified. EDMS 09/09 00:04 IV discontinued, intact, bleeding controlled, No redness/swelling at site. Pressure mg2 dressing applied. Administered Medications: 09/08 21:42 Drug: NS 0.9% 1000 ml Route: IV; Rate: 1 bolus; Site: right forearm; 23:18 Follow up: Response: No adverse reaction; IV Status: Completed infusion 21:44 Drug: Demerol 25 mg {Note: RASS 0.} Route: IVP; Site: right forearm; 23:18 Follow up: Response: No adverse reaction; Pain is unchanged, physician notified 21:46 Drug: Zofran (Ondansetron) 4 mg Route: IVP; Site: right forearm; 23:18 Follow up: Response: No adverse reaction 22:19 Drug: Ativan 1 mg {Note: RASS 0.} Route: IVP; Site: right forearm; 23:19 Follow up: Response: No adverse reaction; Pain is unchanged, physician notified 23:24 Drug: morphine 2 mg {Note: RASS 0.} Route: IVP; Site: right forearm; Outcome: 09/09 00:16 Discharge ordered by . cp 00:20 Discharged to home ambulatory. mg2 00:20 Condition: stable 00:20 Discharge instructions given to patient, Instructed on discharge instructions, follow up and referral plans. medication usage, Demonstrated understanding of instructions, follow-up care, medications, Prescriptions given X 1. 00:20 Patient left the ED. mg2 Signatures: Dispatcher [employer] EDNY Mayank Arvizu PA PA cp Espinosa, Orlando oe Habalo, Winsy RN RN Jarrod Bradley RN RN mg2 Jeanie Moon cf2 Sandra Wiseman RN RN ll1
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
[2020-09-09 00:51] VITALS: BP 120/70; TEMP 98; O2SAT 100
--- NOTE | 2020-09-09 07:25 | RAD REPORT ---
EXAM DESCRIPTION: RAD - Chest Single View - 09/08/2020 10:05 pm CLINICAL HISTORY: CHEST PAIN COMPARISON: Portable September 07 TECHNIQUE: AP portable chest image was obtained 09/08/2020 10:05 pm . FINDINGS: Lung volumes are very low which accentuates heart, vasculature and lung markings. Mild kaila lure or volume overload could be masked in this setting. No peripheral mass consolidation identifiabl e. Heart size is mildly enlarged most of which is the affects of shallow inspiration and portable carrie ging. This also accentuates the vasculature. Trachea is midline. No measurable pleural effusion and n o pneumothorax. No acute bony abnormality seen. No acute aortic findings suspected. IMPRESSION: Limited portable study without peripheral mass or consolidation. Mild failure or volume overload can be masked in this setting.
--- NOTE | 2020-09-09 08:27 | RAD REPORT ---
EXAM DESCRIPTION: RAD - Forearm Left - 09/09/2020 1:03 am CLINICAL HISTORY: PAIN, nontraumatic COMPARISON: None. FINDINGS: No fracture is identified. There is no dislocation or periosteal reaction noted. No acute or destructive bone process identifiable. There is a small bony density along the anterior margin of the numerous -ulna joint space potentially a loose body. Correlation is needed with patient's symptom pattern. No foreign body or other soft tissue abnormality. IMPRESSION: No acute bone or joint finding. Possible small calcified loose body anterior margin of the elbow joint.
--- NOTE | 2020-09-09 11:35 | RAD REPORT ---
EXAM DESCRIPTION: CT - CTHCSPWOC - 09/09/2020 6:58 am CLINICAL HISTORY: 40 years, Female, headache, fall COMPARISON: 09/05/2020. FINDINGS: Multiple transaxial tomograms of the brain were obtained from the base of the skull to the vertex without contrast. 2-D multiplanar reformats and the coronal and sagittal plane were performed and reviewed. Subsequently multiple axial CT images through the cervical spine were obtained at 2 mm slice thicknes s at 2 mm interval reconstruction. In addition 2-D multiplanar reformats and the sagittal coronal ashley ne were performed and reviewed. An individualized dose optimization technique, Automated Exposure Control, was utilized for the perfo rmed procedure. Head: Brain parenchyma as well as the forrest and white matter differentiation demonstrate to be unremar kable. There is no midline shift and/or mass effect. There is no evidence for acute hemorrhage and/or infarction. Lateral ventricles and cisterns displace normal appearance. No intra or extra axial fluid collections were seen. The calvarium is intact with no evidence for fracture. The visualized po rtions of the paranasal sinuses and orbits demonstrate to be clear. C-spine: The alignment, vertebral body heights, and disc spaces are normal. There is no evidence of fracture or subluxation. There is no evidence for degenerative changes. The spinal canal demonstrate mild decrease in size perhaps corresponding to congenital stenosis. Neural foramina demonstrate to b e unremarkable. The uncovertebral joints demonstrate to be normal. There is no prevertebral soft tiss ue swelling. Sagittal coronal reformatted images demonstrate no subluxation or bony abnormalities. IMPRESSION: NO ACUTE INTRACRANIAL HEMORRHAGE. UNREMARKABLE CT SCAN OF THE HEAD WITHOUT CONTRAST. CT CERVICAL SPINE NEGATIVE FOR FRACTURE OR SUBLUXATION. QUESTIONABLE CONGENITAL CERVICAL SPINAL STENOSIS. Electronically signed by: Rafal Johnson MD 09/08/2020 11:15 PM UNDERWRITING CONSULTANT Due to temporary technical issues with the PACS/Fluency reporting system, reports are being signed by the in house radiologist without review as a courtesy to ensure prompt reporting. The interpreting r adiologist is fully responsible for the content of the report.
== END 2020-09-09 00:20 | disposition home or self-care (01) ==
LOC: ER 20:25
DX: S50.12XA Contusion of left forearm, initial encounter (principal); R51.9 Headache, unspecified; W22.8XXA Striking against or struck by other objects, initial encounter; Y93.9 Activity, unspecified; Y92.9 Unspecified place or not applicable; F17.210 Nicotine dependence, cigarettes, uncomplicated
CPT/HCPCS: 96361; 93005; 85025; 80048; 36415; 83735; 81025; 85610; 80076; 80307 ×8; 81003; 84484; 70450; 72125; 71045; 73090; 96375; 96374; 99285; J2270; J2175; J7030; J2405

== ENCOUNTER 2020-10-04 14:32 | Emergency (ER) | payer BC ==
[2020-10-04 16:22] LABS: Absolute Lymphocytes (CBC) 2.8 K/uL (0.7-4.9); Basophils % 1.3 % (0-1.3); Hematocrit 40.9 % (36.0-45.0); Lymphocytes % 27.8 % (15.3-44.8); MPV 7.9 fL (7.6-11.3); RBC Red Blood Cell Count 4.74 M/uL (3.86-4.86)
--- NOTE | 2020-10-04 16:37 | RAD REPORT ---
EXAM DESCRIPTION: CT - Head Brain Wo Cont - 10/04/2020 4:21 pm CLINICAL HISTORY: Headache COMPARISON: September 15, 2020 TECHNIQUE: Computed axial tomography of the head was obtained. IV contrast was not requested. All CT scans are performed using dose optimization technique as appropriate and may include automated exposure control or mA/KV adjustment according to patient size. FINDINGS: An intracranial bleed is not seen . The ventricles are normal in caliber. No extra-axial fluid collection is noted. Fluid within the sinuses/ mastoids is not seen. IMPRESSION: No acute intracranial abnormality is seen. If patient's symptoms persist MRI of the bra in would be recommended.
[2020-10-04 16:45] LABS: ALT/SGPT 44 U/L (12-78); AST/SGOT 21 U/L (15-37); Albumin 3.6 g/dL (3.4-5.0); Alkaline Phosphatase 77 U/L (45-117); BUN Blood Urea Nitrogen 13 mg/dL (7-18); Bicarbonate 22 mmol/L (21-32); Bilirubin Direct < 0.1 mg/dL (0-0.2); Bilirubin Total 0.1 mg/dL (0.2-1.0); Glucose Level 97 mg/dL (74-106); Lipase 107 U/L (73-393); Protein, Total 7.7 g/dL (6.4-8.2); Sodium Level 140 mmol/L (136-145)
[2020-10-04] MEDS ORDERED: KETOROLAC 30 MG/ML INJ ONE (16:48)
[2020-10-04] MEDS ORDERED: DIPHENHYDRAMINE 50 MG/ML VIAL ONE (16:48)
[2020-10-04] MEDS ORDERED: METOCLOPRAMIDE 10 MG/2mL INJ ONE (16:48)
[2020-10-04] MEDS ORDERED: NA CHLORIDE 0.9% 1,000 ML ONE (16:48)
[2020-10-04] MEDS ORDERED: DIAZEPAM 10 MG/2 ML INJ SYRINGE ONE (17:53)
[2020-10-04] MEDS ORDERED: MORPHINE 2 MG/ML SYR ONE (17:53)
--- NOTE | 2020-10-04 18:09 | RAD REPORT ---
EXAM DESCRIPTION: CTHead angio10/04/2020 5:49 pm CLINICAL HISTORY: Headache COMPARISON: None TECHNIQUE: CT angiogram of the head was obtained. 3D MIPS reconstruction performed. All CT scans are performed using dose optimization technique as appropriate and may include automated exposure control or mA/KV adjustment according to patient size. FINDINGS: The basilar, internal carotid, anterior cerebral, middle cerebral and posterior cerebral a rteries are normal caliber. An aneurysm is not seen. A significant stenosis is not noted. IMPRESSION: Unremarkable CT angiogram head.
[2020-10-04] MEDS ORDERED: ONDANSETRON 4 MG/2 ML VIAL ONE (18:41)
[2020-10-04] MEDS ORDERED: TETRACAINE HCL 0.5% 4ML OPTH ONE (18:42)
[2020-10-04] MEDS ORDERED: CEFTRIAXONE/SWI 1gm 1 GM/10 ML SYR ONE (19:29)
[2020-10-04] MEDS ORDERED: FAMOTIDINE 20 MG/2 ML VIAL IV ONE (19:29)
--- NOTE | 2020-10-04 19:30 | ER ---
Nurse's Notes [facility] Name: Charity Hanks Age: 40 yrs Sex: Female : 1980 Arrival Date: 10/04/2020 Time: 14:37 Bed 17 Private MD: Diagnosis: Acute serous otitis media, left ear;Headache Presentation: 10/04 14:42 Chief complaint: Patient states: Bilateral ear pain, worse L since 09/17. Finished ll1 antibiotics, no relief. Ears feel clogged. + PORRAS's. N/V/D since 09/17. R lower back pain also. Coronavirus screen: Client denies travel out of the [place] in the last 14 days. At this time, the client does not indicate any symptoms associated with coronavirus-19. The client reports previous COVID testing was negative. Ebola Screen: Patient denies travel to an Ebola-affected area in the 21 days before illness onset. Initial Sepsis Screen: Does the patient meet any 2 criteria? HR > 90 bpm. No. Patient's initial sepsis screen is negative. Does the patient have a suspected source of infection? Yes: Other: ear pain/PORRAS. Risk Assessment: Do you want to hurt yourself or someone else? Patient reports no desire to harm self or others. Onset of symptoms was September 17, 2020. 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 - Social history:: Smoking status: Patient reports the use of cigarette tobacco products, smokes one-half pack cigarettes per day. Screenin:41 Abuse screen: Denies threats or abuse. Denies injuries from another. Nutritional zb screening: No deficits noted. Tuberculosis screening: No symptoms or risk factors identified. Fall Risk None identified. Assessment: 16:50 General: Appears uncomfortable, Behavior is calm, cooperative, appropriate for age. zb Pain: Complains of pain in right ear, left ear, base of the skull and abdomen Pain radiates to neck Pain currently is 9 out of 10 on a pain scale. Neuro: Level of Consciousness is awake, alert, Oriented to person, place, time, situation. Cardiovascular: Patient's skin is warm and dry. Respiratory: Airway is patent Trachea midline Respiratory effort is even, unlabored, Respiratory pattern is regular, symmetrical. GI: Bowel sounds present X 4 quads. Reports lower abdominal pain, upper abdominal pain, nausea. EENT: Tympanic membrane reddened on right ear and left ear bulging on right ear. Derm: Skin is intact, Skin is dry, Skin is normal, Skin temperature is warm. Musculoskeletal: Range of motion: intact in all extremities. 17:06 Reassessment: ECP at bedside discussing care with patient. zb 18:20 Reassessment: pt c/o of nausea and pain. notified MD. zb 19:39 Reassessment: Patient appears in no apparent distress at this time. Patient is alert, zb oriented x 3, equal unlabored respirations, skin warm/dry/pink. d/c instruction given. patient gait steady and even upon discharge. Vital Signs: 14:42 BP 130 / 101; Pulse 112; Resp 18; Temp 98.2; Pulse Ox 98% ; Weight 99.79 kg; Height 5 ll1 ft. 2 in. (157.48 cm); Pain 9/10; 15:00 BP 112 / 74; Pulse 91; Resp 16; Pulse Ox 98% on R/A; zb 16:30 BP 132 / 64; Pulse 97; Resp 18; Pulse Ox 97% on R/A; zb 17:30 BP 123 / 82; Pulse 88; Resp 16; Pulse Ox 97% on R/A; zb 18:39 BP 109 / 61; Pulse 87; Resp 16; Pulse Ox 96% on R/A; zb 19:01 BP 134 / 79; Pulse 82; Resp 16; Pulse Ox 98% on R/A; zb 14:42 Body Mass Index 40.24 (99.79 kg, 157.48 cm) ll1 ED Course: 14:37 Patient arrived in ED. mr 14:44 Triage completed. ll1 14:45 Arm band placed on. ll1 15:00 Inserted saline lock: 22 gauge in left antecubital area, using aseptic technique. Blood zb collected. 15:40 Henry Mclain PA is PHCP. [facility] 15:40 Alexx Motta MD is Attending Physician. jmm 15:54 Ana Harris RN is Primary Nurse. zb 16:48 CT Head Brain wo Cont In Process Unspecified. EDMS 17:42 Inserted saline lock: 20 gauge in right wrist, using aseptic technique. jl7 17:49 CT Head Angio In Process Unspecified. EDMS 18:41 Patient has correct armband on for positive identification. Bed in low position. Call zb light in reach. Side rails up X 1. Pulse ox on. NIBP on. Door closed. Noise minimized. 19:39 No provider procedures requiring assistance completed. IV discontinued, intact, zb bleeding controlled, No redness/swelling at site. Pressure dressing applied. Administered Medications: 16:42 Drug: NS 0.9% 1000 ml Route: IV; Rate: 1 bolus; Site: left antecubital; zb 18:00 Follow up: Response: No adverse reaction; IV Status: Completed infusion; IV Intake: zb 1000ml 16:42 Drug: Reglan 10 mg Route: IVP; Site: left antecubital; zb 18:00 Follow up: Response: No adverse reaction; Marked relief of symptoms zb 16:42 Drug: diphenhydrAMINE 25 mg Route: IVP; Site: left antecubital; zb 18:00 Follow up: Response: No adverse reaction; Marked relief of symptoms zb 16:42 Drug: Ketorolac 30 mg Route: IVP; Site: left antecubital; zb 18:00 Follow up: Response: No adverse reaction; Marked relief of symptoms zb 17:41 Drug: Valium (diazepam) 2 mg Route: IVP; Site: left antecubital; zb 18:20 Follow up: Response: No adverse reaction; Marked relief of symptoms; RASS: Alert and zb Calm (0) 17:42 Drug: morphine 2 mg Route: IVP; Site: left antecubital; zb 18:20 Follow up: Response: No adverse reaction; Marked relief of symptoms; RASS: Alert and zb Calm (0) 18:33 Drug: Tetracaine Drops 0.5 % 1 drops {Note: given in affected EARs per MD .} Route: zb Ophthalmic; Site: both eyes; 18:45 Follow up: Response: No adverse reaction; Pain is decreased zb 18:33 Drug: Zofran (Ondansetron) 4 mg Route: IVP; Site: right wrist; zb 19:00 Follow up: Response: No adverse reaction; Marked relief of symptoms zb 19:00 Drug: Pepcid (famotidine) 20 mg Route: IVP; Site: right wrist; zb 19:10 Follow up: Response: No adverse reaction; Marked relief of symptoms zb Intake: 18:00 IV: 1000ml; Total: 1000ml. zb Outcome: 19:30 Discharge ordered by . osvaldo 19:39 Discharged to home ambulatory. zb 19:39 Condition: stable 19:39 Discharge instructions given to patient, Instructed on discharge instructions, follow up and referral plans. medication usage, Demonstrated understanding of instructions, follow-up care, medications, Prescriptions given X 1. 19:41 Patient left the ED. zb Signatures: Dispatcher [employer] EDMS Henry Mclain PA PA jmm Rivera, Mary Hector Rosen RN RN [id number] Sandra Wiseman RN RN ll1 Ana Harris RN RN zb
--- NOTE | 2020-10-04 19:30 | EDPHYS ---
Physician Documentation [facility] Name: Charity Hanks Age: 40 yrs Sex: Female : 1980 Arrival Date: 10/04/2020 Time: 14:37 Bed 17 Private MD: ED Physician Alexx Motta HPI: 10/04 15:48 This 40 yrs old Female presents to ER via Ambulatory with complaints of Ear jmm Pain, Headache. 15:48 The patient presents with pain. Onset: The symptoms/episode began/occurred gradually, jmm 17 day(s) ago. Modifying factors: The symptoms are alleviated by nothing, the symptoms are aggravated by nothing. Associated signs and symptoms: Pertinent positives: vertigo. The patient has not experienced similar symptoms in the past. This is a 40 year old female with a history of PTSD that presents to the ED with complaints of ongoing left ear pain since 09/17. Patient was treated with amoxicillin but continues to have ongoing left ear pain which radiates to the left side of her head. Patient also complains of episodes of vomiting. Patient has not had a similar headache before. Denies fever or neck stiffness. Patient also complains of right flank pain along with dysuria. . 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 - Social history:: Smoking status: Patient reports the use of cigarette tobacco products, smokes one-half pack cigarettes per day. ROS: 15:48 Constitutional: Negative for fever, chills, and weight loss, Cardiovascular: Negative jmm for chest pain, palpitations, and edema, Respiratory: Negative for shortness of breath, cough, wheezing, and pleuritic chest pain. 15:48 ENT: Positive for ear pain. 15:48 Neuro: Positive for headache. 15:48 All other systems are negative. Exam: 15:48 Constitutional: This is a well developed, well nourished patient who is awake, alert, jmm and in no acute distress. Head/Face: atraumatic. Eyes: EOMI, no conjunctival erythema appreciated 15:48 Neck: Trachea midline, Supple Chest/axilla: Normal chest wall appearance and motion. Cardiovascular: Regular rate and rhythm. No edema appreciated Respiratory: Normal respirations, no respiratory distress appreciated Abdomen/GI: Non distended, soft Back: Normal ROM Skin: General appearance color normal MS/ Extremity: Moves all extremities, no obvious deformities appreciated, no edema noted to the lower extremities Neuro: Awake and alert, normal gait Psych: Behavior is normal, Mood is normal, Patient is cooperative and pleasant 15:48 ENT: TM's: erythema, that is moderate, on the left. Vital Signs: 14:42 BP 130 / 101; Pulse 112; Resp 18; Temp 98.2; Pulse Ox 98% ; Weight 99.79 kg; Height 5 ll1 ft. 2 in. (157.48 cm); Pain 9/10; 15:00 BP 112 / 74; Pulse 91; Resp 16; Pulse Ox 98% on R/A; zb 16:30 BP 132 / 64; Pulse 97; Resp 18; Pulse Ox 97% on R/A; zb 17:30 BP 123 / 82; Pulse 88; Resp 16; Pulse Ox 97% on R/A; zb 18:39 BP 109 / 61; Pulse 87; Resp 16; Pulse Ox 96% on R/A; zb 19:01 BP 134 / 79; Pulse 82; Resp 16; Pulse Ox 98% on R/A; zb 14:42 Body Mass Index 40.24 (99.79 kg, 157.48 cm) ll1 MDM: 15:54 Patient medically screened. [email or web address] 19:26 Data reviewed: vital signs, nurses notes. Counseling: I had a detailed discussion with osvaldo the patient and/or guardian regarding: the historical points, exam findings, and any diagnostic results supporting the discharge/admit diagnosis, lab results, radiology results, the need for outpatient follow up, to return to the emergency department if symptoms worsen or persist or if there are any questions or concerns that arise at home. ED course: Pain has been relieved in the ED. Neck is supple, I do not suspect meningitis. CT and CTA negative, I do not suspect SAH. Patient is advised to follow up with pcp and otherwise given strict return precautions. Patient understood and agrees with the plan of care. . 10/04 15:48 Order name: Basic Metabolic Panel; Complete Time: 16:54 [facility] 10/04 15:48 Order name: CBC with Diff; Complete Time: 16:54 [facility] 10/04 15:48 Order name: Hepatic Function; Complete Time: 16:54 [facility] 10/04 15:48 Order name: Lipase; Complete Time: 16:54 [facility] 10/04 15:52 Order name: Urine Microscopic Only [facility] 10/04 19:24 Order name: Urine Dipstick--Ancillary (enter results) tt3 10/04 15:50 Order name: CT Head Brain wo Cont; Complete Time: 16:54 [facility] 10/04 17:16 Order name: CT Head Angio; Complete Time: 18:12 [facility] 10/04 15:48 Order name: IV Saline Lock; Complete Time: 16:43 [facility] 10/04 15:48 Order name: Labs collected and sent; Complete Time: 16:43 [facility] 10/04 15:48 Order name: Urine Dipstick-Ancillary (obtain specimen); Complete Time: 19:28 [facility] 10/04 15:52 Order name: Urine Test (obtain specimen); Complete Time: 19:38 [facility] Administered Medications: 16:42 Drug: NS 0.9% 1000 ml Route: IV; Rate: 1 bolus; Site: left antecubital; zb 18:00 Follow up: Response: No adverse reaction; IV Status: Completed infusion; IV Intake: zb 1000ml 16:42 Drug: Reglan 10 mg Route: IVP; Site: left antecubital; zb 18:00 Follow up: Response: No adverse reaction; Marked relief of symptoms zb 16:42 Drug: diphenhydrAMINE 25 mg Route: IVP; Site: left antecubital; zb 18:00 Follow up: Response: No adverse reaction; Marked relief of symptoms zb 16:42 Drug: Ketorolac 30 mg Route: IVP; Site: left antecubital; zb 18:00 Follow up: Response: No adverse reaction; Marked relief of symptoms zb 17:41 Drug: Valium (diazepam) 2 mg Route: IVP; Site: left antecubital; zb 18:20 Follow up: Response: No adverse reaction; Marked relief of symptoms; RASS: Alert and zb Calm (0) 17:42 Drug: morphine 2 mg Route: IVP; Site: left antecubital; zb 18:20 Follow up: Response: No adverse reaction; Marked relief of symptoms; RASS: Alert and zb Calm (0) 18:33 Drug: Tetracaine Drops 0.5 % 1 drops {Note: given in affected EARs per MD .} Route: zb Ophthalmic; Site: both eyes; 18:45 Follow up: Response: No adverse reaction; Pain is decreased zb 18:33 Drug: Zofran (Ondansetron) 4 mg Route: IVP; Site: right wrist; zb 19:00 Follow up: Response: No adverse reaction; Marked relief of symptoms zb 19:00 Drug: Pepcid (famotidine) 20 mg Route: IVP; Site: right wrist; zb 19:10 Follow up: Response: No adverse reaction; Marked relief of symptoms zb Disposition: 10/04/20 19:30 Discharged to Home. Impression: Acute serous otitis media, left ear, Headache. - Condition is Stable. - Discharge Instructions: Otitis Media, Adult, General Headache Without Cause. - Prescriptions for cefdinir 300 mg Oral capsule - take 1 capsule by ORAL route every 12 hours; 20 capsule. - Medication Reconciliation Form, Thank You Letter, Antibiotic Education, Prescription Opioid Use form. - Follow up: Private Physician; When: 2 - 3 days; Reason: Recheck today's complaints, Continuance of care, Re-evaluation by your physician. Addendum: 10/07/2020 15:40 Co-signature as Attending Physician, Alexx Motta MD. m a2 Signatures: Dispatcher [employer] EDMS Henry Mclain PA PA jmm Alzahri, Mohammad, MD MD ma2 Sandra Wiseman RN RN ll1 Ana Harris RN RN zb Corrections: (The following items were deleted from the chart) 10/04 19:28 15:48 This is a 40 year old female with a history of PTSD that presents [facility] the [facility] complaints of ongoing left ear pain since 09/17. Patient was treated with amoxicillin but continues to have ongoing left ear pain which radiates to the left side of her head. Patient also complains of episodes of vomiting. Patient has not had a similar headache before. Denies fever or neck stiffness. . [facility] 19:41 19:30 10/04/2020 19:30 Discharged to Home. Impression: Acute serous otitis media, left zb ear; Headache. Condition is Stable. Forms are Medication Reconciliation Form, Thank You Letter, Antibiotic Education, Prescription Opioid Use. Follow up: Private Physician; When: 2 - 3 days; Reason: Recheck today's complaints, Continuance of care, Re-evaluation by your physician. osvaldo
[2020-10-04 19:50] VITALS: TEMP 98.2
[2020-10-04 19:56] VITALS: BP 134/79; O2SAT 98
[2020-10-04 20:06] LABS: Urine Bacteria <20 /HPF (<20); Urine RBC NONE SEEN /HPF (NONE SEEN)
[2020-10-12 11:18] LABS: Urine Blood Negative (Negative); Urine Glucose Negative (Negative); Urine Protein Negative (Negative); Urine Specific Gravity <=1.005 (1.005-1.030)
== END 2020-10-04 19:41 | disposition home or self-care (01) ==
LOC: ER 14:32
DX: H65.02 Acute serous otitis media, left ear (principal); F17.210 Nicotine dependence, cigarettes, uncomplicated
CPT/HCPCS: 85025; 80048; 36415; 80076; 83690; 70450; 70496; Q9967; J2765; J1200; J3360; J2270; J0696; J7030; J2405; 81003; 81015; 99284

== ENCOUNTER 2020-10-10 23:52 | Emergency (ER) | payer BC ==
[2020-10-11 01:08] LABS: Absolute Lymphocytes (CBC) 3.7 K/uL (0.7-4.9); Basophils % 0.7 % (0-1.3); Hematocrit 37.9 % (36.0-45.0); Lymphocytes % 29.7 % (15.3-44.8); MPV 7.7 fL (7.6-11.3); RBC Red Blood Cell Count 4.34 M/uL (3.86-4.86)
[2020-10-11 01:14] LABS: Protime INR 0.93
[2020-10-11 01:26] LABS: ALT/SGPT 57 U/L (12-78); AST/SGOT 22 U/L (15-37); Albumin 3.2 g/dL (3.4-5.0); Alkaline Phosphatase 80 U/L (45-117); BUN Blood Urea Nitrogen 14 mg/dL (7-18); Bicarbonate 26 mmol/L (21-32); Bilirubin Direct < 0.1 mg/dL (0-0.2); Glucose Level 103 mg/dL (74-106); Magnesium 1.8 mg/dL (1.8-2.4); NT PRO-BNP 27 pg/mL (<125); Potassium 3.7 mmol/L (3.5-5.1); Protein, Total 6.6 g/dL (6.4-8.2); Sodium Level 147 mmol/L (136-145); Troponin (Emerg Dept Use Only) < 0.02 ng/mL (0.0-0.045)
[2020-10-11 01:28] LABS: Bilirubin Total < 0.1 mg/dL (0.2-1.0)
[2020-10-11] MEDS ORDERED: ONDANSETRON 4 MG/2 ML VIAL ONE (03:26)
[2020-10-11] MEDS ORDERED: NA CHLORIDE 0.9% 1,000 ML ONE (03:27)
[2020-10-11] MEDS ORDERED: MORPHINE 4 MG/ML SYR ONE (04:32)
[2020-10-11 04:49] LABS: Lipase 175 U/L (73-393)
--- NOTE | 2020-10-11 05:40 | RAD REPORT ---
EXAM DESCRIPTION: Akiko Single View10/11/2020 1:26 am CLINICAL HISTORY: Chest pain COMPARISON: September 2020 FINDINGS: The lungs appear clear of acute infiltrate. The heart is mildly enlarged IMPRESSION: No acute abnormalities displayed
[2020-10-11] MEDS ORDERED: LORazepam 2 MG/ML VIAL ONE (05:46)
[2020-10-11 06:39] LABS: Urine Blood Trace-intact (Negative); Urine Glucose Negative (Negative); Urine Protein Negative (Negative); Urine Specific Gravity 1.015 (1.005-1.030)
[2020-10-11] MEDS ORDERED: MORPHINE 2 MG/ML SYR ONE (07:47)
--- NOTE | 2020-10-11 07:52 | EDPHYS ---
Physician Documentation [facility] Name: Charity Hanks Age: 40 yrs Sex: Female : 1980 Arrival Date: 10/10/2020 Time: 23:53 Bed 16 Private MD: ED Physician Ricci Urias HPI: 10/11 07:47 This 40 yrs old Female presents to ER via Ambulatory with complaints of Chest pkl Pain, Abdominal Pain, Vision Problem. 07:47 The patient or guardian reports chest pain that is located primarily in the substernal pkl area. Onset: just prior to arrival. The pain does not radiate. Associated signs and symptoms: Pertinent positives: abdominal pain. The chest pain is described as dull. Historical: - Allergies: 00:05 No Known Allergies; bb - Home Meds: 01:30 cefdinir 300 mg oral cap 1 cap every 12 hours for Acute Otitis Media Infection [Active];sf - PMHx: 00:05 PTSD; bb - PSHx: 00:05 Cholecystectomy; Tonsillectomy; bb - Immunization history:: Adult Immunizations up to date. - Social history:: Smoking status: Patient reports the use of cigarette tobacco products, smokes one-half pack cigarettes per day, Patient/guardian denies using alcohol, street drugs. ROS: 07:47 Eyes: Negative for injury, pain, redness, and discharge, ENT: Negative for injury, pkl pain, and discharge, Neck: Negative for injury, pain, and swelling, Respiratory: Negative for shortness of breath, cough, wheezing, and pleuritic chest pain. 07:47 Cardiovascular: Positive for chest pain. 07:47 Abdomen/GI: Positive for abdominal pain, of the right upper quadrant and right lower quadrant. 07:47 Back: Negative for acute changes. 07:47 : Negative for urinary symptoms. 07:47 MS/extremity: Negative for acute changes. 07:47 Skin: Negative for rash. 07:47 Neuro: Negative for altered mental status. Exam: 07:47 Head/Face: Normocephalic, atraumatic. Eyes: Pupils equal round and reactive to light, pkl extra-ocular motions intact. Lids and lashes normal. Conjunctiva and sclera are non-icteric and not injected. Cornea within normal limits. Periorbital areas with no swelling, redness, or edema. ENT: Nares patent. No nasal discharge, no septal abnormalities noted. Tympanic membranes are normal and external auditory canals are clear. Oropharynx with no redness, swelling, or masses, exudates, or evidence of obstruction, uvula midline. Mucous membranes moist. Neck: Trachea midline, no thyromegaly or masses palpated, and no cervical lymphadenopathy. Supple, full range of motion without nuchal rigidity, or vertebral point tenderness. No Meningismus. Chest/axilla: Normal chest wall appearance and motion. Nontender with no deformity. No lesions are appreciated. Cardiovascular: Regular rate and rhythm with a normal S1 and S2. No gallops, murmurs, or rubs. Normal PMI, no JVD. No pulse deficits. Respiratory: Lungs have equal breath sounds bilaterally, clear to auscultation and percussion. No rales, rhonchi or wheezes noted. No increased work of breathing, no retractions or nasal flaring. Abdomen/GI: Soft, non-tender, with normal bowel sounds. No distension or tympany. No guarding or rebound. No evidence of tenderness throughout. Back: No spinal tenderness. No costovertebral tenderness. Full range of motion. Skin: Warm, dry with normal turgor. Normal color with no rashes, no lesions, and no evidence of cellulitis. MS/ Extremity: Pulses equal, no cyanosis. Neurovascular intact. Full, normal range of motion. Neuro: Awake and alert, GCS 15, oriented to person, place, time, and situation. Cranial nerves II-XII grossly intact. Motor strength 5/5 in all extremities. Sensory grossly intact. Cerebellar exam normal. Normal gait. Vital Signs: 00:02 BP 116 / 59; Pulse 96; Resp 18 S; Temp 98.1; Pulse Ox 98% on R/A; Weight 99.79 kg (R); bb Height 5 ft. 2 in. (157.48 cm) (R); Pain 10/10; 00:50 BP 125 / 85; Pulse 94; Resp 18 S; Pulse Ox 97% on R/A; bb 01:16 BP 119 / 64; Pulse 88; Resp 16; Pulse Ox 100% ; sf 01:45 BP 101 / 86; Pulse 85; Resp 16; Pulse Ox 94% ; sf 02:00 BP 105 / 65; Pulse 85; Resp 16; Pulse Ox 94% ; sf 02:30 BP 118 / 80; Pulse 83; Resp 16; Pulse Ox 96% ; sf 02:45 BP 130 / 77; Pulse 86; Resp 16; Pulse Ox 95% ; sf 03:00 BP 117 / 57; Pulse 85; Resp 16; Pulse Ox 98% ; bb 03:30 BP 110 / 75; Pulse 84; Resp 16; Pulse Ox 96% ; bb 04:00 BP 114 / 69; Pulse 86; Resp 16; Pulse Ox 99% ; bb 04:30 BP 96 / 75; Pulse 82; Resp 16; Pulse Ox 94% ; bb 04:38 Pain 8/10; bb 05:14 BP 141 / 89; Pulse 77; Resp 16; Pulse Ox 95% ; sf 05:30 BP 130 / 74; Pulse 75; Resp 16; Pulse Ox 97% ; sf 06:38 BP 131 / 81; Pulse 85; Resp 16; Pulse Ox 98% ; sf 00:02 Body Mass Index 40.24 (99.79 kg, 157.48 cm) bb MDM: 03:59 Patient medically screened. pkl 07:47 Data reviewed: vital signs, nurses notes, lab test result(s), EKG, radiologic studies, pkl CT scan. ED course: Patient feeling better. Advised to follow up with PCP in 2 to 3 days. Patient instructions. 10/11 00:56 Order name: Basic Metabolic Panel bb 10/11 00:56 Order name: CBC with Diff; Complete Time: 04:00 10/11 00:56 Order name: LFT's; Complete Time: 07:23 10/11 00:56 Order name: Magnesium; Complete Time: 07:23 10/11 00:56 Order name: NT PRO-BNP; Complete Time: 07:23 bb 10/11 00:56 Order name: PT-INR; Complete Time: 04:41 10/11 00:56 Order name: Troponin (emerg Dept Use Only); Complete Time: 07:23 bb 10/11 00:57 Order name: Basic Metabolic Panel; Complete Time: 07:23 EDMS 10/11 04:25 Order name: D-Dimer; Complete Time: 04:41 EDMS 10/11 04:25 Order name: Lipase; Complete Time: 07:23 EDMS 10/11 06:38 Order name: Urine Dipstick-Ancillary; Complete Time: 07:23 EDMS 10/11 06:39 Order name: Urine --Ancillary (enter results) mw2 10/11 00:56 Order name: XRAY Chest (1 view); Complete Time: 07:23 bb 10/11 00:56 Order name: EKG; Complete Time: 00:57 bb 10/11 00:56 Order name: Cardiac monitoring; Complete Time: 01:04 bb 10/11 00:56 Order name: EKG - Nurse/Tech; Complete Time: 00:57 bb 10/11 00:56 Order name: IV Saline Lock; Complete Time: 00:57 bb 10/11 00:56 Order name: Labs collected and sent; Complete Time: 00:57 bb 10/11 00:56 Order name: O2 Per Protocol; Complete Time: 01:04 bb 10/11 00:56 Order name: O2 Sat Monitoring; Complete Time: 01:04 bb 10/11 04:07 Order name: CT Abd/Pelvis - IV Contrast Only pkl 10/11 04:23 Order name: Urine Dipstick-Ancillary (obtain specimen); Complete Time: 06:48 mw2 10/11 04:43 Order name: CT Chest For PE Angio pkl 10/11 04:23 Order name: Urine Test (obtain specimen); Complete Time: 06:48 mw2 Administered Medications: 03:12 Drug: Zofran (Ondansetron) 4 mg Route: IVP; Site: left antecubital; sf 04:36 Follow up: Response: No adverse reaction; Nausea is decreased; Vomiting decreased bb 03:12 Drug: NS 0.9% 1000 ml Route: IV; Rate: 125 ml/hr; Site: left antecubital; sf 04:36 Follow up: IV Status: Completed infusion; IV Intake: 1000ml bb 04:18 Drug: morphine 4 mg {Note: RASS 0.} Route: IVP; Site: left antecubital; 04:38 Follow up: Response: No adverse reaction; Pain is decreased bb 05:32 Drug: Ativan 1 mg Route: IVP; Site: left antecubital; bb 06:48 Follow up: Response: No adverse reaction; Anxiety decreased sf 07:31 Drug: morphine 2 mg Route: IVP; Site: left antecubital; Disposition: 10/11/20 07:51 Discharged to Home. Impression: Chest pain. Abdominal pain. - Condition is Stable. - Medication Reconciliation Form, Thank You Letter, Antibiotic Education, Prescription Opioid Use form. - Follow up: Private Physician; When: 2 - 3 days; Reason: Re-evaluation by your physician. - Problem is new. - Symptoms have improved. Signatures: Dispatcher [employer] EDOH Ricci Urias MD MD pkl Ballard, Brenda, RN RN Justice Day RN RN Yael Moon [facility] Ajit Odonnell RN RN sf Corrections: (The following items were deleted from the chart) 01:31 00:05 Home Meds: None; bb sf 04:25 04:06 D-DIMER+COAG.LAB.BRZ ordered. [facility] EDOH 04:25 04:06 LIPASE+C.LAB.BRZ ordered. [facility] 08:02 07:51 10/11/2020 07:51 Discharged to Home. Impression: Chest pain. Abdominal pain. wh Condition is Stable. Forms are Medication Reconciliation Form, Thank You Letter, Antibiotic Education, Prescription Opioid Use. Follow up: Private Physician; When: 2 - 3 days; Reason: Re-evaluation by your physician. Problem is new. Symptoms have improved. pkl
--- NOTE | 2020-10-11 07:52 | ER ---
Nurse's Notes [facility] Name: Charity Hanks Age: 40 yrs Sex: Female : 1980 Arrival Date: 10/10/2020 Time: 23:53 Bed 16 Private MD: Diagnosis: Chest pain. Abdominal pain Presentation: 10/11 00:02 Chief complaint: Patient states: she started having chest pain with nausea, pain bb radiating to her neck and down her left arm about an hour ago and when she opens and closes her eyes she sees spiderwebs, also she has right sided pain, vomited x 3. Coronavirus screen: At this time, the client does not indicate any symptoms associated with coronavirus-19. Ebola Screen: No symptoms or risks identified at this time. Initial Sepsis Screen: Does the patient meet any 2 criteria? No. Patient's initial sepsis screen is negative. Does the patient have a suspected source of infection? No. Patient's initial sepsis screen is negative. Risk Assessment: Do you want to hurt yourself or someone else? Patient reports no desire to harm self or others. Onset of symptoms was October 11, 2020. 00:02 Method Of Arrival: Ambulatory bb 00:02 Acuity: CARLOS 3 bb 00:54 Note registration notified this RN pt laying on floor, on assessment pt laying on floor bb conscious, vs within normal limits, pt able to stand up and get in chair no visible signs of injury noted, provider notified. Triage Assessment: 00:05 General: Appears uncomfortable, Behavior is cooperative, anxious. Pain: Complains of bb pain in chest Pain radiates to left arm Pain currently is 10 out of 10 on a pain scale. Neuro: Level of Consciousness is awake, alert, obeys commands, Oriented to person, place, time, situation. Cardiovascular: Rhythm is sinus rhythm. Respiratory: Respiratory effort is even, unlabored, Respiratory pattern is regular. GI: Abdomen is obese. Derm: Skin is pink, warm \\T\\ dry. Musculoskeletal: Circulation, motion, and sensation intact. Historical: - Allergies: 00:05 No Known Allergies; bb - Home Meds: 01:30 cefdinir 300 mg oral cap 1 cap every 12 hours for Acute Otitis Media Infection [Active];sf - PMHx: 00:05 PTSD; bb - PSHx: 00:05 Cholecystectomy; Tonsillectomy; bb - Immunization history:: Adult Immunizations up to date. - Social history:: Smoking status: Patient reports the use of cigarette tobacco products, smokes one-half pack cigarettes per day, Patient/guardian denies using alcohol, street drugs. Screenin:30 Abuse screen: Denies threats or abuse. Denies injuries from another. Nutritional sf screening: No deficits noted. Tuberculosis screening: No symptoms or risk factors identified. Never had TB. Possible symptoms: None Risk factors: None. Fall Risk None identified. No fall in past 12 months (0 pts). No secondary diagnosis (0 pts). IV access (20 points). Ambulatory Aid- None/Bed Rest/Nurse Assist (0 pts). Gait- Normal/Bed Rest/Wheelchair (0 pts) Mental Status- Oriented to own ability (0 pts). Total Browne Fall Scale indicates No Risk (0-24 pts). Assessment: 01:26 Also complains of nausea. General: Appears in no apparent distress. uncomfortable, sf Behavior is calm, cooperative, appropriate for age. Pain: Complains of pain in chest and right lower quadrant Pain radiates to face, left scapular area, left arm and neck Pain currently is 10 out of 10 on a pain scale. Pain began gradually, 1 day ago. Neuro: No deficits noted. Level of Consciousness is awake, alert, Oriented to person, place, time, situation. Cardiovascular: Reports chest pain, nausea, syncope, vomiting, Denies diaphoresis, fatigue, lightheadedness, palpitations, shortness of breath, Capillary refill < 3 seconds Patient's skin is warm and dry. Rhythm is sinus rhythm. Respiratory: No deficits noted. Airway is patent Respiratory effort is even, unlabored, Respiratory pattern is regular, symmetrical. GI: Abdomen is obese, Reports lower abdominal pain, nausea, vomiting. : No signs and/or symptoms were reported regarding the genitourinary system. 04:39 Reassessment: Patient appears in no apparent distress at this time. Patient and/or bb family updated on plan of care and expected duration. Pain level reassessed. Patient is alert, oriented x 3, equal unlabored respirations, skin warm/dry/pink. Patient requesting valium, states "this pain I think is caused by anxiety like a panic attack". Pain decreased slightly after morphine. Patient reports just went to the bathroom and did not obtain sample, can not urine at this time. 05:55 Reassessment: Patient appears in no apparent distress at this time. Patient and/or sf family updated on plan of care and expected duration. Pain level reassessed. Patient is alert, oriented x 3, equal unlabored respirations, skin warm/dry/pink. Patient states feeling better. Patient states symptoms have improved. 06:28 Reassessment: Patient removed all monitors and states "they all fell off". Refuses sf further vitals. Ambulatory to restroom to attempt urine sample. Vital Signs: 00:02 BP 116 / 59; Pulse 96; Resp 18 S; Temp 98.1; Pulse Ox 98% on R/A; Weight 99.79 kg (R); bb Height 5 ft. 2 in. (157.48 cm) (R); Pain 10/10; 00:50 BP 125 / 85; Pulse 94; Resp 18 S; Pulse Ox 97% on R/A; bb 01:16 BP 119 / 64; Pulse 88; Resp 16; Pulse Ox 100% ; sf 01:45 BP 101 / 86; Pulse 85; Resp 16; Pulse Ox 94% ; sf 02:00 BP 105 / 65; Pulse 85; Resp 16; Pulse Ox 94% ; sf 02:30 BP 118 / 80; Pulse 83; Resp 16; Pulse Ox 96% ; sf 02:45 BP 130 / 77; Pulse 86; Resp 16; Pulse Ox 95% ; sf 03:00 BP 117 / 57; Pulse 85; Resp 16; Pulse Ox 98% ; bb 03:30 BP 110 / 75; Pulse 84; Resp 16; Pulse Ox 96% ; bb 04:00 BP 114 / 69; Pulse 86; Resp 16; Pulse Ox 99% ; bb 04:30 BP 96 / 75; Pulse 82; Resp 16; Pulse Ox 94% ; bb 04:38 Pain 8/10; bb 05:14 BP 141 / 89; Pulse 77; Resp 16; Pulse Ox 95% ; sf 05:30 BP 130 / 74; Pulse 75; Resp 16; Pulse Ox 97% ; sf 06:38 BP 131 / 81; Pulse 85; Resp 16; Pulse Ox 98% ; sf 00:02 Body Mass Index 40.24 (99.79 kg, 157.48 cm) ED Course: 10/10 23:53 Patient arrived in ED. cf2 04/06 00:05 Triage completed. bb 00:05 Arm band placed on Patient placed in waiting room, in a wheelchair. Patient notified of bb wait time. EKG completed in triage. Results shown to MD. 00:55 Initial lab(s) drawn, by me, sent to lab. Inserted saline lock: 20 gauge in left bb antecubital area, using aseptic technique. Blood collected. Missed attempt(s): 20 gauge in right antecubital area. Bleeding controlled, band aid applied, catheter tip intact. 01:19 Ajit Odonnell, RN is Primary Nurse. sf 01:19 XRAY Chest (1 view) Sent. sf 01:26 XRAY Chest (1 view) In Process Unspecified. EDMS 01:30 Patient has correct armband on for positive identification. Placed in gown. Bed in low sf position. Call light in reach. Side rails up X2. secured entrance monitor on. Pulse ox on. NIBP on. Door closed. Noise minimized. Visitors limited. Lights dimmed. Warm blanket given. Verbal reassurance given. 03:59 Ricci Urias MD is Attending Physician. pkl 05:09 CT Chest For PE Angio Sent. bb 05:09 CT Abd/Pelvis - IV Contrast Only Sent. bb 05:22 CT Abd/Pelvis - IV Contrast Only In Process Unspecified. EDMS 05:22 CT Chest For PE Angio In Process Unspecified. EDMS 06:30 Urine collected: clean catch specimen, clear. sf 07:06 Primary Nurse role handed off by Ajit Odonnell, JAMES bd 07:07 Basic Metabolic Panel Sent. sv 07:08 Report given to JAMES Urbina. sf 07:28 Justice Day, JAMES is Primary Nurse. wh 07:54 No provider procedures requiring assistance completed. IV discontinued. wh 07:54 Patient maintains SpO2 saturation greater than 95% on room air. wh Administered Medications: 03:12 Drug: Zofran (Ondansetron) 4 mg Route: IVP; Site: left antecubital; sf 04:36 Follow up: Response: No adverse reaction; Nausea is decreased; Vomiting decreased bb 03:12 Drug: NS 0.9% 1000 ml Route: IV; Rate: 125 ml/hr; Site: left antecubital; sf 04:36 Follow up: IV Status: Completed infusion; IV Intake: 1000ml bb 04:18 Drug: morphine 4 mg {Note: RASS 0.} Route: IVP; Site: left antecubital; 04:38 Follow up: Response: No adverse reaction; Pain is decreased bb 05:32 Drug: Ativan 1 mg Route: IVP; Site: left antecubital; 06:48 Follow up: Response: No adverse reaction; Anxiety decreased sf 07:31 Drug: morphine 2 mg Route: IVP; Site: left antecubital; Intake: 04:36 IV: 1000ml; Total: 1000ml. bb Outcome: 07:51 Discharge ordered by . pkkhris 07:54 Discharged to home ambulatory. 07:54 Condition: stable 07:54 Discharge instructions given to patient. 08:02 Patient left the ED. Signatures: Dispatcher [employer] EDMS Nicole Galvan Stephanie RN Ricci Zayas MD MD pkl Ballard, Brenda, RN RN bb Habalo, Winsy, RN RN Jeanie Moon [facility] Ajit Odonnell RN RN sf Corrections: (The following items were deleted from the chart) 01:31 00:05 Home Meds: None; bb sf 04:42 04:39 Reassessment: Patient appears in no apparent distress at this time. Patient bb and/or family updated on plan of care and expected duration. Pain level reassessed. Patient is alert, oriented x 3, equal unlabored respirations, skin warm/dry/pink. Patient requesting valium, states "this pain I think is caused by anxiety like a panic attack". Pain decreased slightly after morphine bb
[2020-10-11 07:54] LABS: Urine Specific Gravity/Preg 1.015 (1.005-1.030)
--- NOTE | 2020-10-11 08:08 | EKG ---
Test Date: 2020-10-11 Test Time: 00:09:33 Simulation Analyst: HODAN MEASUREMENT RESULTS: Intervals: Rate: 98 NE: 152 QRSD: 80 QT: 358 QTc: 457 [place]: P: 18 NE: 152 QRS: -19 T: 4 INTERPRETIVE STATEMENTS: Normal sinus rhythm Possible Left atrial enlargement Anterior infarct, age undetermined Abnormal ECG Compared to ECG 09/08/2020 21:14:37 No significant changes Electronically Signed On 10-11-20 08:08:05 CDT by Edgar Bazzi
[2020-10-11 10:48] VITALS: BP 131/81; O2SAT 98
--- NOTE | 2020-10-11 13:28 | RAD REPORT ---
EXAM DESCRIPTION: CT - Chest For Pe Angio - 10/11/2020 6:27 am CLINICAL HISTORY: The patient is 40 years old and is Female; CHEST PAIN TECHNIQUE: Axial computed tomographic angiography images of the chest with intravenous contrast. S agittal and coronal reformatted images were created and reviewed. This CT exam was performed using one or more of the following dose reduction techniques: automated exposure control, adjustment of t he mA and/or kV according to patient size, and/or use of iterative reconstruction technique. MIP re constructed images were created and reviewed. COMPARISON: CT angiography chest abdomen pelvis September 05, 2020. FINDINGS: Pulmonary arteries: No PE visualized. Aorta: No acute findings. No thoracic aortic aneurysm. Lungs: No pulmonary consolidation or groundglass opacities. Pleural space: No pleural effusion or pneumothorax. Heart: Mild cardiomegaly. No significant pericardial effusion. Bones/joints: Posterior longitudinal ligament calcification in the midthoracic spine with mild c entral canal stenosis. No acute fracture identified. No dislocation. Soft tissues: Unremarkable. Lymph nodes: Subcarinal lymph node calcifications consistent with previous granulomatous organis m exposure. No pathologic mediastinal or hilar adenopathy. IMPRESSION: No PE identified. Electronically signed by: Susie Morales MD 10/11/2020 5:54 AM CDT Due to temporary technical issues with the PACS/Fluency reporting system, reports are being signed by the in house radiologist without review as a courtesy to ensure prompt reporting. The interpreting r adiologist is fully responsible for the content of the report.
--- NOTE | 2020-10-11 13:29 | RAD REPORT ---
EXAM DESCRIPTION: CT - Abdomen Pelvis W Contrast - 10/11/2020 6:27 am CLINICAL HISTORY: The patient is 40 years old and is Female; ABD PAIN TECHNIQUE: Axial computed tomography images of the abdomen and pelvis with intravenous contrast. S agittal and coronal reformatted images were created and reviewed. This CT exam was performed using one or more of the following dose reduction techniques: automated exposure control, adjustment of t he mA and/or kV according to patient size, and/or use of iterative reconstruction technique. COMPARISON: CT abdomen pelvis August 08, 2020. FINDINGS: Lung bases: See CT angiography chest report, study performed concurrently. ABDOMEN: Liver: Unremarkable. No mass. Gallbladder and bile ducts: Cholecystectomy without choledocholithiasis. Mild intrahepatic bilia ry dilatation, not significantly changed. Pancreas: No findings to suggest acute pancreatitis. No mass visualized. No ductal dilation. Spleen: Unremarkable. No splenomegaly. Adrenals: 2.3 cm left adrenal adenoma again noted. Right adrenal gland is unremarkable. Kidneys and ureters: Unremarkable. No solid mass. No hydronephrosis. Stomach and bowel: No bowel dilatation or obstruction. No bowel wall thickening. No gastric wall thickening. PELVIS: Appendix: The visualized appendix is normal. No pericecal inflammation to suggest acute appendic itis. Bladder: Unremarkable. No mass. Reproductive: Unremarkable as visualized. ABDOMEN and PELVIS: Intraperitoneal space: Unremarkable. No free air. No significant fluid collection. Bones/joints: No acute fracture identified. No dislocation. Soft tissues: Unremarkable. Vasculature: Unremarkable. No abdominal aortic aneurysm. Lymph nodes: No pathologically enlarged lymph nodes. IMPRESSION: 1. No acute obstructive or inflammatory process identified. Normal appendix. 2. Cholecystectomy without choledocholithiasis. Mild intrahepatic biliary dilatation, not significa ntly changed. 3. 2.3 cm left adrenal adenoma again noted. No follow-up imaging recommended. Electronically signed by: Susie Morales MD 10/11/2020 5:48 AM CDT Due to temporary technical issues with the PACS/Fluency reporting system, reports are being signed by the in house radiologist without review as a courtesy to ensure prompt reporting. The interpreting r adiologist is fully responsible for the content of the report.
== END 2020-10-11 08:02 | disposition home or self-care (01) ==
LOC: ER 23:52
DX: R10.9 Unspecified abdominal pain (principal); F43.10 Post-traumatic stress disorder, unspecified; F17.210 Nicotine dependence, cigarettes, uncomplicated
CPT/HCPCS: 93005; 85025; 80048; 36415; 83735; 81025; 85610; 85379; 80076; 81003; 84484; 83690; 83880; 71275; 74177; 71045; Q9967; J2270; J7030; J2405; 96361; 96374; 96375; 99285

== ENCOUNTER 2020-11-03 03:57 | Emergency (ER) | payer BC ==
[2020-11-03] MEDS ORDERED: MORPHINE 4 MG/ML SYR ONE (04:50)
[2020-11-03] MEDS ORDERED: ONDANSETRON 4 MG/2 ML VIAL ONE (04:51)
[2020-11-03 04:58] LABS: Absolute Lymphocytes (CBC) 3.1 K/uL (0.7-4.9); Basophils % 0.8 % (0-1.3); Hematocrit 38.3 % (36.0-45.0); MPV 8.3 fL (7.6-11.3); RBC Red Blood Cell Count 4.49 M/uL (3.86-4.86)
[2020-11-03 05:12] LABS: ALT/SGPT 23 U/L (12-78); AST/SGOT 9 U/L (15-37); Albumin 3.2 g/dL (3.4-5.0); Alkaline Phosphatase 66 U/L (45-117); BUN Blood Urea Nitrogen 18 mg/dL (7-18); Bicarbonate 23 mmol/L (21-32); Bilirubin Direct < 0.1 mg/dL (0-0.2); Glucose Level 91 mg/dL (74-106); Magnesium 1.9 mg/dL (1.8-2.4); NT PRO-BNP 77 pg/mL (<125); Potassium 3.6 mmol/L (3.5-5.1); Protein, Total 6.9 g/dL (6.4-8.2); Sodium Level 142 mmol/L (136-145); Troponin (Emerg Dept Use Only) < 0.02 ng/mL (0.0-0.045)
[2020-11-03 05:23] LABS: Protime INR 1.01
[2020-11-03 05:29] LABS: Bilirubin Total < 0.1 mg/dL (0.2-1.0)
[2020-11-03] MEDS ORDERED: LORazepam 2 MG/ML VIAL ONE (05:39)
[2020-11-03] MEDS ORDERED: MORPHINE 2 MG/ML SYR ONE (06:22)
--- NOTE | 2020-11-03 07:12 | EDPHYS ---
Physician Documentation [facility] Name: Charity Hanks Age: 40 yrs Sex: Female : 1980 Arrival Date: 11/03/2020 Time: 04:00 Bed 8 Private MD: ED Physician Ricci Urias HPI: 11/03 04:32 This 40 yrs old Female presents to ER via EMS with complaints of Chest Pain. pkl 04:32 The patient or guardian reports chest pain that is located primarily in the substernal pkl area. Onset: just prior to arrival. The pain radiates to the left arm, the left shoulder. Associated signs and symptoms: Pertinent positives: panic attack. The chest pain is described as tightness. The patient has experienced similar episodes in the past, a few times. 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 - Social history:: Smoking status: Patient reports the use of cigarette tobacco products, smokes one-half pack cigarettes per day. ROS: 04:32 Eyes: Negative for injury, pain, redness, and discharge, ENT: Negative for injury, pkl pain, and discharge, Neck: Negative for injury, pain, and swelling. 04:32 Cardiovascular: Positive for chest pain. 04:32 Respiratory: Negative for cough, shortness of breath. 04:32 Abdomen/GI: Negative for abdominal pain, nausea, vomiting, and diarrhea. 04:32 Back: Negative for acute changes. 04:32 : Negative for urinary symptoms. 04:32 MS/extremity: Negative for acute changes. 04:32 Skin: Negative for rash. 04:32 Neuro: Negative for altered mental status. Exam: 04:32 Head/Face: Normocephalic, atraumatic. Eyes: Pupils equal round and reactive to light, pkl extra-ocular motions intact. Lids and lashes normal. Conjunctiva and sclera are non-icteric and not injected. Cornea within normal limits. Periorbital areas with no swelling, redness, or edema. ENT: Nares patent. No nasal discharge, no septal abnormalities noted. Tympanic membranes are normal and external auditory canals are clear. Oropharynx with no redness, swelling, or masses, exudates, or evidence of obstruction, uvula midline. Mucous membranes moist. Neck: Trachea midline, no thyromegaly or masses palpated, and no cervical lymphadenopathy. Supple, full range of motion without nuchal rigidity, or vertebral point tenderness. No Meningismus. Chest/axilla: Normal chest wall appearance and motion. Nontender with no deformity. No lesions are appreciated. Cardiovascular: Regular rate and rhythm with a normal S1 and S2. No gallops, murmurs, or rubs. Normal PMI, no JVD. No pulse deficits. Respiratory: Lungs have equal breath sounds bilaterally, clear to auscultation and percussion. No rales, rhonchi or wheezes noted. No increased work of breathing, no retractions or nasal flaring. Abdomen/GI: Soft, non-tender, with normal bowel sounds. No distension or tympany. No guarding or rebound. No evidence of tenderness throughout. Back: No spinal tenderness. No costovertebral tenderness. Full range of motion. Skin: Warm, dry with normal turgor. Normal color with no rashes, no lesions, and no evidence of cellulitis. MS/ Extremity: Pulses equal, no cyanosis. Neurovascular intact. Full, normal range of motion. Neuro: Awake and alert, GCS 15, oriented to person, place, time, and situation. Cranial nerves II-XII grossly intact. Motor strength 5/5 in all extremities. Sensory grossly intact. Cerebellar exam normal. Normal gait. 04:32 Psych: Behavior/mood is anxious, Affect is animated, Patient has no thoughts/intents to harm self or others. Judgement / Insight is normal. Vital Signs: 04:01 BP 137 / 83; Pulse 89; Resp 18; Temp 98.3; Pulse Ox 99% ; Weight 99.79 kg; Height 5 ft. wh 2 in. (157.48 cm); Pain 9/10; 05:30 BP 128 / 80; Pulse 79; Resp 22; Pulse Ox 97% on R/A; wh 07:12 BP 120 / 85; Pulse 74; Resp 21; Pulse Ox 99% ; sv 04:01 Body Mass Index 40.24 (99.79 kg, 157.48 cm) MDM: 04:24 Patient medically screened. pkl 07:11 Data reviewed: vital signs, nurses notes, lab test result(s), EKG, radiologic studies, pkl plain films. 11/03 04:11 Order name: Basic Metabolic Panel 11/03 04:11 Order name: CBC with Diff; Complete Time: 05:16 11/03 04:11 Order name: LFT's; Complete Time: 05:35 11/03 04:11 Order name: Magnesium; Complete Time: 05:35 11/03 04:11 Order name: NT PRO-BNP; Complete Time: 05:35 11/03 04:11 Order name: PT-INR; Complete Time: 06: 11/03 04:11 Order name: Troponin (emerg Dept Use Only); Complete Time: 05: 11/03 04:11 Order name: Basic Metabolic Panel; Complete Time: 05:35 EDMS 11/03 04:31 Order name: D-Dimer pk 11/03 04:42 Order name: D-Dimer; Complete Time: 06:25 EDMS 11/03 05:42 Order name: Troponin (emerg Dept Use Only); Complete Time: 07:12 pkl 11/03 04:11 Order name: XRAY Chest (1 view) 11/03 04:11 Order name: EKG; Complete Time: 04:11 11/03 04:11 Order name: Cardiac monitoring; Complete Time: 04: 11/03 04:11 Order name: EKG - Nurse/Tech; Complete Time: 04: 11/03 04:11 Order name: IV Saline Lock; Complete Time: 04:34 11/03 04:11 Order name: Labs collected and sent; Complete Time: 04: 11/03 04:11 Order name: O2 Per Protocol; Complete Time: 04: 11/03 04:11 Order name: O2 Sat Monitoring; Complete Time: 04: 11/03 05:42 Order name: EKG; Complete Time: 05:42 pkl 11/03 05:42 Order name: Troponin (emerg Dept Use Only) 11/03 05:42 Order name: EKG - Nurse/Tech; Complete Time: 05:52 wh Administered Medications: 04:33 Drug: morphine 4 mg {Note: RASS 0.} Route: IVP; Site: right forearm; 05:27 Follow up: Response: No adverse reaction; Pain is decreased; RASS: Alert and Calm (0) 04:35 Drug: Zofran (Ondansetron) 4 mg Route: IVP; Site: right forearm; 05:27 Follow up: Response: No adverse reaction 05:27 Drug: Ativan (LORazepam) 0.5 mg {Note: RASS0.} Route: IVP; Site: right forearm; 06:08 Follow up: Response: No adverse reaction; RASS: Alert and Calm (0) 06:07 Drug: morphine 2 mg {Note: RASS 0.} Route: IVP; Site: right forearm; Disposition: 11/03/20 07:11 Discharged to Home. Impression: Chest pain. - Condition is Stable. - Discharge Instructions: Nonspecific Chest Pain. - Medication Reconciliation Form, Thank You Letter, Antibiotic Education, Prescription Opioid Use form. - Follow up: Private Physician; When: 2 - 3 days; Reason: Re-evaluation by your physician. - Problem is new. - Symptoms have improved. Signatures: Dispatcher [employer] EDMS Ricci Urias MD MD pkRgeina Deshpande RN RN Justice Day RN RN Corrections: (The following items were deleted from the chart) 04:40 04:32 D-Dimer ordered. EDVA EDMS 05:40 04:32 Urine Drug Screen ordered. EDVA EDMS 07:31 07:11 11/03/2020 07:11 Discharged to Home. Impression: Chest pain. Condition is Stable. hb Forms are Medication Reconciliation Form, Thank You Letter, Antibiotic Education, Prescription Opioid Use. Follow up: Private Physician; When: 2 - 3 days; Reason: Re-evaluation by your physician. Problem is new. Symptoms have improved. pkl
--- NOTE | 2020-11-03 07:12 | ER ---
Nurse's Notes [facility] Name: Charity Hanks Age: 40 yrs Sex: Female : 1980 Arrival Date: 11/03/2020 Time: 04:00 Bed 8 Private MD: Diagnosis: Chest pain Presentation: 11/03 04:01 Chief complaint: EMS states: Chest pain that started tonight radiating to her left shoulder and arm. Coronavirus screen: Client denies travel out of the [place] in the last 14 days. At this time, the client does not indicate any symptoms associated with coronavirus-19. Ebola Screen: Patient negative for fever greater than or equal to 101.5 degrees Fahrenheit, and additional compatible Ebola Virus Disease symptoms Patient denies exposure to infectious person. Initial Sepsis Screen: Does the patient meet any 2 criteria? No. Patient's initial sepsis screen is negative. Does the patient have a suspected source of infection? No. Patient's initial sepsis screen is negative. Risk Assessment: Do you want to hurt yourself or someone else? Patient reports no desire to harm self or others. Onset of symptoms was November 03, 2020. 04:01 Method Of Arrival: [facility]: [facility] 04:01 Acuity: CARLOS 3 04:02 Care prior to arrival: Medication(s) given: ASA, 325 mg. 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 - Social history:: Smoking status: Patient reports the use of cigarette tobacco products, smokes one-half pack cigarettes per day. Screenin:03 Abuse screen: Denies threats or abuse. Denies injuries from another. Nutritional screening: No deficits noted. Tuberculosis screening: No symptoms or risk factors identified. Fall Risk None identified. Assessment: 04:04 General: Appears in no apparent distress. Behavior is calm, cooperative. Pain: Complains of pain in chest Pain radiates to left arm Pain currently is 9 out of 10 on a pain scale. Quality of pain is described as sharp, Pain began suddenly. Neuro: Level of Consciousness is awake, alert, obeys commands, Oriented to person, place, time, situation. Cardiovascular: Reports chest pain, Heart tones S1 S2. Respiratory: Airway is patent Respiratory effort is even, unlabored, Respiratory pattern is regular, symmetrical, Breath sounds are clear bilaterally. GI: Abdomen is round non-distended. : No signs and/or symptoms were reported regarding the genitourinary system. EENT: No signs and/or symptoms were reported regarding the EENT system. Derm: Skin is intact, is healthy with good turgor, Skin is pink, warm \T\ dry. normal. Musculoskeletal: Circulation, motion, and sensation intact. 05:30 Reassessment: Patient appears in no apparent distress at this time. No changes from previously documented assessment. Patient and/or family updated on plan of care and expected duration. Pain level reassessed. Patient is alert, oriented x 3, equal unlabored respirations, skin warm/dry/pink. 07:30 Reassessment: Patient appears in no apparent distress at this time. Patient and/or hb family updated on plan of care and expected duration. Pain level reassessed. Patient states feeling better. Patient states symptoms have improved. Vital Signs: 04:01 BP 137 / 83; Pulse 89; Resp 18; Temp 98.3; Pulse Ox 99% ; Weight 99.79 kg; Height 5 ft. 2 in. (157.48 cm); Pain 9/10; 05:30 BP 128 / 80; Pulse 79; Resp 22; Pulse Ox 97% on R/A; 07:12 BP 120 / 85; Pulse 74; Resp 21; Pulse Ox 99% ; sv 04:01 Body Mass Index 40.24 (99.79 kg, 157.48 cm) ED Course: 04:00 Patient arrived in ED. 04:02 Triage completed. 04:05 Patient has correct armband on for positive identification. Bed in low position. Call light in reach. Side rails up X 1. property assessment monitor on. Pulse ox on. NIBP on. 04:05 Arm band placed on right wrist. 04:05 Patient maintains SpO2 saturation greater than 95% on room air. 04:10 Justice Day, RN is Primary Nurse. 04:24 Ricci Urias MD is Attending Physician. pkl 04:30 Inserted saline lock: 18 gauge in right forearm, using aseptic technique. Blood jb4 collected. 04:30 Initial lab(s) drawn, by me, sent to lab. jb4 05:03 XRAY Chest (1 view) In Process Unspecified. EDMS 07:30 No provider procedures requiring assistance completed. IV discontinued, intact, hb bleeding controlled, No redness/swelling at site. Administered Medications: 04:33 Drug: morphine 4 mg {Note: RASS 0.} Route: IVP; Site: right forearm; 05:27 Follow up: Response: No adverse reaction; Pain is decreased; RASS: Alert and Calm (0) 04:35 Drug: Zofran (Ondansetron) 4 mg Route: IVP; Site: right forearm; 05:27 Follow up: Response: No adverse reaction 05:27 Drug: Ativan (LORazepam) 0.5 mg {Note: RASS0.} Route: IVP; Site: right forearm; 06:08 Follow up: Response: No adverse reaction; RASS: Alert and Calm (0) 06:07 Drug: morphine 2 mg {Note: RASS 0.} Route: IVP; Site: right forearm; Outcome: 07:11 Discharge ordered by . pkl 07:30 Discharged to home ambulatory. hb 07:30 Condition: stable 07:30 Discharge instructions given to patient, Instructed on discharge instructions, follow up and referral plans. medication usage, Demonstrated understanding of instructions, follow-up care, medications. 07:31 Patient left the ED. hb Signatures: Dispatcher [employer] EDUT Susie Pagan, JAMES RMAIREZ Ricci Urias MD MD pkRegina Deshpande RN RN Herminio Sauer RN RN jb4 Justice Day RN RN
[2020-11-03 07:45] VITALS: TEMP 98.3
[2020-11-03 07:55] VITALS: BP 120/85; O2SAT 99
--- NOTE | 2020-11-03 08:58 | RAD REPORT ---
EXAM DESCRIPTION: RAD - Chest Single View - 11/03/2020 5:04 am CLINICAL HISTORY: CHEST PAIN Chest pain. COMPARISON: Chest Single View dated 10/11/2020; Chest Single View dated 09/08/2020; Chest Single View da kaushik 09/07/2020; Chest Single View dated 08/15/2020 FINDINGS: Portable technique limits examination quality. Mild interstitial pulmonary edema is suspected. The heart is upper limit normal in size. No displaced fractures.
== END 2020-11-03 07:31 | disposition home or self-care (01) ==
LOC: ER 03:57
DX: R07.9 Chest pain, unspecified (principal); F41.8 Other specified anxiety disorders; F17.210 Nicotine dependence, cigarettes, uncomplicated
CPT/HCPCS: 93005 ×2; 85025; 80048; 36415; 83735; 85610; 85379; 80076; 84484 ×2; 83880; 71045; 96375; 96374; 99285; J2270; J2405

== ENCOUNTER 2020-11-09 19:13 | Emergency (ER) | payer BC ==
[2020-11-09] MEDS ORDERED: DIAZEPAM 10 MG/2 ML INJ SYRINGE ONE (22:57)
[2020-11-09 23:02] LABS: Barbiturates NEGATIVE (NEGATIVE); Benzodiazepines POSITIVE (NEGATIVE); Cocaine NEGATIVE (NEGATIVE); METHAMPHETAM NEGATIVE (NEGATIVE); Methadone NEGATIVE (NEGATIVE); Opiates NEGATIVE (NEGATIVE); Phencyclidine NEGATIVE (NEGATIVE); THC Cannibis NEGATIVE (NEGATIVE)
[2020-11-09 23:31] LABS: Urine Blood Trace-intact (Negative); Urine Glucose Negative (Negative); Urine Protein Negative (Negative); Urine Specific Gravity 1.025 (1.005-1.030); Urine pH 5.5 (5.0-7.0)
--- NOTE | 2020-11-09 23:33 | EDPHYS ---
Physician Documentation [facility] Name: Charity Hanks Age: 40 yrs Sex: Female : 1980 Arrival Date: 11/09/2020 Time: 19:19 Bed 8 Private MD: ED Physician Alexx Motta HPI: 11/09 23:31 This 40 yrs old Female presents to ER via Ambulatory with complaints of ma2 Suicidal Ideation, Anxiety. 23:31 The patient presents to the emergency department with anxiety, depression, a history of ma2 a suicide gesture, suicide ideation. Onset: The symptoms/episode began/occurred gradually, 2 day(s) ago. Associated signs and symptoms: Pertinent negatives: chest pain, fever, headache. Severity of symptoms: At their worst the symptoms were moderate in the emergency department the symptoms are unchanged. The patient has experienced similar episodes in the past. has a plan for shooting her head with a gun. 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 Flu vaccine is not up to date. - Social history:: Smoking status: Patient reports the use of cigarette tobacco products, smokes one-half pack cigarettes per day, Patient/guardian denies using alcohol, street drugs, Patient/guardian denies using. - Family history:: not pertinent. ROS: 23:31 Constitutional: Negative for fever, chills, and weight loss. ma2 23:31 All other systems are negative. Exam: 23:31 Constitutional: This is a well developed, well nourished patient who is awake, alert, ma2 and in no acute distress. Chest/axilla: Normal chest wall appearance and motion. Nontender with no deformity. No lesions are appreciated. Abdomen/GI: Soft, non-tender, with normal bowel sounds. No distension or tympany. No guarding or rebound. No evidence of tenderness throughout. Back: No spinal tenderness. No costovertebral tenderness. Full range of motion. Skin: Warm, dry with normal turgor. Normal color with no rashes, no lesions, and no evidence of cellulitis. MS/ Extremity: Pulses equal, no cyanosis. Neurovascular intact. Full, normal range of motion. Neuro: Awake and alert, GCS 15, oriented to person, place, time, and situation. Cranial nerves II-XII grossly intact. Motor strength 5/5 in all extremities. Sensory grossly intact. Cerebellar exam normal. Normal gait. 23:31 Psych: Affect is flat, Patient having thoughts of suicide. Vital Signs: 20:03 BP 151 / 98; Pulse 107; Resp 16 S; Temp 97.6(TE); Pulse Ox 99% on R/A; Weight 99.79 kg ca1 (R); Height 5 ft. 2 in. (157.48 cm) (R); Pain 9/10; 22:00 BP 147 / 85; Pulse 110; Resp 19; Pulse Ox 99% ; rr5 05 01:00 BP 151 / 76; Pulse 83; Resp 16; Pulse Ox 99% ; rr5 02:50 BP 140 / 85; Pulse 80; Resp 19; Pulse Ox 98% ; rr5 05 20:03 Body Mass Index 40.24 (99.79 kg, 157.48 cm) ca1 MDM: 11/09 22:05 Patient medically screened. ma2 23:31 Differential diagnosis: drug withdrawal. acute psychotic break, depression, psychosis ma2 secondary to non-compliance. Data reviewed: vital signs, nurses notes. Counseling: I had a detailed discussion with the patient and/or guardian regarding: the historical points, exam findings, and any diagnostic results supporting the discharge/admit diagnosis, the presence of at least one elevated blood pressure reading (>120/80) during this emergency department visit, the need for outpatient follow up. Response to treatment: the patient's symptoms have markedly improved after treatment. 11/09 22:06 Order name: Acetaminophen de2 11/09 22: Order name: Basic Metabolic Panel de2 11/09 22:06 Order name: CBC with Diff de2 11/09 22: Order name: ETOH Level; Complete Time: :47 de2 11/09 22:06 Order name: Hepatic Function; Complete Time: :47 de2 11/09 22:06 Order name: PT-INR; Complete Time: :47 de2 11/09 22:06 Order name: Ptt, Activated; Complete Time: :47 ma2 11/09 22:06 Order name: Salicylate; Complete Time: 01:47 ma2 11/09 22:06 Order name: Urine Drug Screen; Complete Time: 23:33 ma2 11/09 22:06 Order name: Acetaminophen Level; Complete Time: 01:47 EDMS 11/09 22:06 Order name: Basic Metabolic Panel; Complete Time: 01:47 EDMS 11/09 22:06 Order name: CBC with Automated Diff; Complete Time: 01:47 EDMS 11/09 23:29 Order name: Urine --Ancillary (enter results) rr5 11/09 22:06 Order name: Urine Test (obtain specimen); Complete Time: 23:25 ma2 11/09 22:06 Order name: EKG; Complete Time: 22:07 ma2 11/09 22:06 Order name: EKG - Nurse/Tech; Complete Time: 22:27 ma2 11/09 22:06 Order name: IV Saline Lock; Complete Time: 22:27 ma2 11/09 22:06 Order name: Labs collected and sent; Complete Time: 22:27 ma2 11/09 22:06 Order name: Suicide Screening ([place]); Complete Time: 00:48 ma2 11/09 22:06 Order name: Urine Dipstick-Ancillary (obtain specimen); Complete Time: 22:27 ma2 11/09 23:30 Order name: Urine --Ancillary; Complete Time: 01:47 EDMS 11/09 23:30 Order name: Urine Dipstick-Ancillary; Complete Time: 23:33 EDMS 11/10 00:57 Order name: SARS-COV-2 RT PCR; Complete Time: 01:47 EDMS Administered Medications: 22:47 Drug: Valium (diazepam) 10 mg Route: IVP; Site: left antecubital; rr5 23:30 Follow up: Response: No adverse reaction rr5 23:20 Drug: Zofran (Ondansetron) 4 mg Route: IVP; Site: left antecubital; rr5 11/10 00:02 Follow up: Response: No adverse reaction rr5 11/09 23:25 Drug: morphine 4 mg Route: IVP; Site: left antecubital; rr5 11/10 00:02 Follow up: Response: No adverse reaction; RASS: Alert and Calm (0) rr5 00:02 Drug: NS 0.9% 1000 ml Route: IV; Rate: 1 bolus; Site: left antecubital; rr5 01:00 Follow up: Response: No adverse reaction; IV Status: Completed infusion; IV Intake: rr5 1000ml 00:46 Drug: NS 0.9% 1000 ml Route: IV; Rate: 1 bolus; Site: left antecubital; rr5 01:45 Follow up: Response: No adverse reaction; IV Status: Completed infusion; IV Intake: rr5 1000ml 01:02 Drug: Ativan (LORazepam) 1 mg Route: IVP; Site: left antecubital; rr5 02:00 Follow up: Response: No adverse reaction rr5 Disposition: 11/09/20 23:33 Transfer ordered to Other Acute Care Facility. Diagnosis is Suicidal ideations. - Reason for transfer: Higher level of care. - Accepting physician is Dr. infante. - Condition is Stable. - Problem is new. - Symptoms are unchanged. Signatures: Dispatcher [employer] EDTN Alexx Motta MD MD ma2 Kanu Karimi RN RN rr5 Mague Smith RN RN ca1 Corrections: (The following items were deleted from the chart) 11/09 23:09 22:48 CORONAVIRUS+MR.LAB.BRZ ordered. [facility] 11/10 01:48 11/09 23:33 11/09/2020 23:33 Transfer ordered to Other Acute Care Facility. Diagnosis ma2 is Suicidal ideations. Reason for transfer: Higher level of care. Accepting physician is [facility]. Condition is Stable. Problem is new. Symptoms are unchanged. ma2 11/10 03:09 01:48 11/09/2020 23:33 Transfer ordered to Other Acute Care Facility. Diagnosis is rr5 Suicidal ideations. Reason for transfer: Higher level of care. Accepting physician is Dr. infante. Condition is Stable. Problem is new. Symptoms are unchanged. ma2
--- NOTE | 2020-11-09 23:33 | ER ---
Nurse's Notes [facility] Name: Charity Hanks Age: 40 yrs Sex: Female : 1980 Arrival Date: 11/09/2020 Time: 19:19 Bed 8 Private MD: Diagnosis: Suicidal ideations Presentation: 11/09 20:03 Chief complaint: Patient states: I got PTSD, severe anxiety and depression and tonight ca1 I just feel suicidal. Denies previous attempts of suicide. Denies any concrete plans to commit suicide. States, "I just feel tired of living this way, I feel like I wanna put a gun in my head. I just feel overwhelmed. I start sweating, my heart pounding, my muscles tightening up" "I don't think I will ever do hurt myself but the thoughts are just scary and I have not slept for 72 hrs". Coronavirus screen: Client denies travel out of the [place] in the last 14 days. At this time, the client does not indicate any symptoms associated with coronavirus-19. Ebola Screen: Patient negative for fever greater than or equal to 101.5 degrees Fahrenheit, and additional compatible Ebola Virus Disease symptoms Patient denies exposure to infectious person. Patient denies travel to an Ebola-affected area in the 21 days before illness onset. No symptoms or risks identified at this time. Initial Sepsis Screen: Does the patient meet any 2 criteria? No. Patient's initial sepsis screen is negative. Does the patient have a suspected source of infection? No. Patient's initial sepsis screen is negative. Risk Assessment: Do you want to hurt yourself or someone else? Patient reports no desire to harm self or others. Onset of symptoms was November 09, 2020. 20:03 Method Of Arrival: Ambulatory ca1 20:03 Acuity: CARLOS 2 ca1 Triage Assessment: 20:08 General: Appears uncomfortable, Behavior is anxious, crying. 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 Flu vaccine is not up to date. - Social history:: Smoking status: Patient reports the use of cigarette tobacco products, smokes one-half pack cigarettes per day, Patient/guardian denies using alcohol, street drugs, Patient/guardian denies using. - Family history:: not pertinent. Screenin:27 Abuse screen: Denies threats or abuse. Denies injuries from another. Nutritional rv screening: No deficits noted. Tuberculosis screening: No symptoms or risk factors identified. Fall Risk None identified. Assessment: 22:00 General: Appears in no apparent distress. comfortable, Behavior is calm, cooperative, rr5 anxious, Reports suicidal thoughts. Pain: Complains of pain in chest Pain currently is 8 out of 10 on a pain scale. Quality of pain is described as aching, Pain began gradually, Is intermittent. 22:00 Neuro: Level of Consciousness is awake, alert, obeys commands, Oriented to person, rr5 place, time. Cardiovascular: Reports chest pain, Capillary refill < 3 seconds Patient's skin is warm and dry. Respiratory: Airway is patent Respiratory effort is even, unlabored, Respiratory pattern is regular, symmetrical. GI: No signs and/or symptoms were reported involving the gastrointestinal system. : No signs and/or symptoms were reported regarding the genitourinary system. EENT: No signs and/or symptoms were reported regarding the EENT system. Derm: Skin is intact, is healthy with good turgor, Skin temperature is warm. Musculoskeletal: Capillary refill < 3 seconds. 23:20 Reassessment: Patient appears in no apparent distress at this time. Patient is alert, rr5 oriented x 3, equal unlabored respirations, skin warm/dry/pink. reqeusting for medicine for her chest pain, ED provider aware with order made and carriedout. 11/10 00:15 Reassessment: Patient appears in no apparent distress at this time. Patient is alert, rr5 oriented x 3, equal unlabored respirations, skin warm/dry/pink. 00:50 Reassessment: Patient appears in no apparent distress at this time. Patient is alert, rr5 oriented x 3, equal unlabored respirations, skin warm/dry/pink. patient could not sleep ED provider aware with order made and carried out. 01:38 Reassessment: report given to "[facility]. rr5 01:55 Reassessment: report given to barb reyna. rr5 01:56 Reassessment: Patient appears in no apparent distress at this time. resting eyes closed rr5 breathing spontaneously at room air. 03:08 Reassessment: report given to [facility] awake alert. rr5 Psych: 11/09 22:00 [place] Suicide Severity Screening: In the past month, have you wished you were rr5 or wished you could go to sleep and not wake up? Patient responds "No." "In the past month, have you actually had any thoughts of killing yourself?" Patient responds "yes." "In your lifetime, have you ever done anything, started to do anything, or prepared to do anything to end your life?" Patient responds "no.". 22:00 Subjective: Patient's mood is sad. Objective: Patient is cooperative, Speech is normal, rr5 Affect is appropriate. Interventions: Removed personal items and placed in bag. Patient placed in hospital gown. Searched person for dangerous items. Urine collected and sent for urine drug test. Belonging list filled out. Safety Checks: Personal items have been removed. Pt has been placed in a hallway bed/chair. Door is open. No visitors are present at this time. Pt denies substance abuse. Commitment: Patient will be a voluntary commitment. Vital Signs: 20:03 BP 151 / 98; Pulse 107; Resp 16 S; Temp 97.6(TE); Pulse Ox 99% on R/A; Weight 99.79 kg ca1 (R); Height 5 ft. 2 in. (157.48 cm) (R); Pain 9/10; 22:00 BP 147 / 85; Pulse 110; Resp 19; Pulse Ox 99% ; rr5 11/10 01:00 BP 151 / 76; Pulse 83; Resp 16; Pulse Ox 99% ; rr5 02:50 BP 140 / 85; Pulse 80; Resp 19; Pulse Ox 98% ; rr5 11/09 20:03 Body Mass Index 40.24 (99.79 kg, 157.48 cm) ca1 ED Course: 11/09 19:19 Patient arrived in ED. am4 20:08 Triage completed. ca1 20:08 Arm band placed on right wrist. ca1 22:05 Alexx Motta MD is Attending Physician. ma2 22:18 Karimi, Kanu, RN is Primary Nurse. rr5 22:20 Inserted saline lock: 20 gauge in left forearm, using aseptic technique. Blood rv collected. 22:20 Initial lab(s) drawn, by me, sent to lab. Missed attempt(s): 20 gauge in right rv antecubital area. 22:50 Patient has correct armband on for positive identification. Placed in gown. Bed in low rr5 position. Valuables Given to family. 22:50 Pulse ox on. NIBP on. rr5 11/10 03:04 No provider procedures requiring assistance completed. IV discontinued, intact, rr5 bleeding controlled, No redness/swelling at site. Pressure dressing applied. Administered Medications: 11/09 22:47 Drug: Valium (diazepam) 10 mg Route: IVP; Site: left antecubital; rr5 23:30 Follow up: Response: No adverse reaction rr5 23:20 Drug: Zofran (Ondansetron) 4 mg Route: IVP; Site: left antecubital; rr5 11/10 00:02 Follow up: Response: No adverse reaction rr5 11/09 23:25 Drug: morphine 4 mg Route: IVP; Site: left antecubital; rr5 11/10 00:02 Follow up: Response: No adverse reaction; RASS: Alert and Calm (0) rr5 00:02 Drug: NS 0.9% 1000 ml Route: IV; Rate: 1 bolus; Site: left antecubital; rr5 01:00 Follow up: Response: No adverse reaction; IV Status: Completed infusion; IV Intake: rr5 1000ml 00:46 Drug: NS 0.9% 1000 ml Route: IV; Rate: 1 bolus; Site: left antecubital; rr5 01:45 Follow up: Response: No adverse reaction; IV Status: Completed infusion; IV Intake: rr5 1000ml 01:02 Drug: Ativan (LORazepam) 1 mg Route: IVP; Site: left antecubital; rr5 02:00 Follow up: Response: No adverse reaction rr5 Intake: 01:00 IV: 1000ml; Total: 1000ml. rr5 01:45 IV: 1000ml; Total: 2000ml. rr5 Outcome: 11/09 23:33 ER care complete, transfer ordered by MD. harris 11/10 03:04 Transferred by ground EMS Transfer form completed. Note: [facility] rr5 Condition: stable Instructed on the need for transfer. 03:09 Patient left the ED. rr5 Signatures: Alexx Motta MD MD ma2 Calderon Meyers RN RN rv Kanu Karimi RN RN rr5 Mague Smith RN RN ca1 Anusha Heard am4 Corrections: (The following items were deleted from the chart) 11/09 20:09 20:03 Chief complaint: Patient states: I got PTSD, severe anxiety and depression and ca1 tonight I just feel suicidal. Denies previous attempts of suicide. Denies any concrete plans to commit suicide. States, "I just feel tired of living this way, I feel like I wanna put a gun in my head. I just feel overwhelmed. I start sweating, my heart pounding, my muscles tightening up" ca1
[2020-11-09] MEDS ORDERED: ONDANSETRON 4 MG/2 ML VIAL ONE (23:38)
[2020-11-09] MEDS ORDERED: MORPHINE 4 MG/ML SYR ONE (23:38)
[2020-11-09 23:46] LABS: Absolute Lymphocytes (CBC) 3.9 K/uL (0.7-4.9); Basophils % 0.1 % (0-1.3); Hematocrit 42.1 % (36.0-45.0); Lymphocytes % 28.7 % (15.3-44.8); MPV 8.2 fL (7.6-11.3); RBC Red Blood Cell Count 4.88 M/uL (3.86-4.86)
[2020-11-10] LABS: ALT/SGPT 22 U/L (12-78); AST/SGOT 15 U/L (15-37); Albumin 3.8 g/dL (3.4-5.0); Alkaline Phosphatase 75 U/L (45-117); BUN Blood Urea Nitrogen 18 mg/dL (7-18); Bicarbonate 23 mmol/L (21-32); Bilirubin Direct < 0.1 mg/dL (0-0.2); Bilirubin Total 0.1 mg/dL (0.2-1.0); Glucose Level 101 mg/dL (74-106); Potassium 4.2 mmol/L (3.5-5.1); Protein, Total 7.7 g/dL (6.4-8.2); Sodium Level 139 mmol/L (136-145)
[2020-11-10 00:12] LABS: Urine Specific Gravity/Preg >1.030 (1.005-1.030)
[2020-11-10] MEDS ORDERED: NA CHLORIDE 0.9% 1,000 ML ONE ×2 (00:20→01:11)
[2020-11-10] MEDS ORDERED: LORazepam 2 MG/ML VIAL ONE (01:11)
[2020-11-10 03:25] VITALS: TEMP 97.6; O2SAT 99
[2020-11-10 03:28] VITALS: BP 151/76
--- NOTE | 2020-11-11 07:51 | EKG ---
Test Date: 2020-11-09 Test Time: 22:31:05 Convict Guard: RR MEASUREMENT RESULTS: Intervals: Rate: 95 WY: 126 QRSD: 92 QT: 374 QTc: 469 [employer]: P: 31 WY: 126 QRS: -24 T: 22 INTERPRETIVE STATEMENTS: Normal sinus rhythm Right atrial enlargement Borderline ECG Compared to ECG 11/03/2020 05:48:41 Atrial abnormality now present Myocardial infarct finding no longer present Electronically Signed On 11-11-20 07:48:29 CDT by Edgar Bazzi
== END 2020-11-10 03:09 ==
LOC: ER 19:13
DX: R45.851 Suicidal ideations (principal); F43.10 Post-traumatic stress disorder, unspecified; F17.210 Nicotine dependence, cigarettes, uncomplicated; Z20.822 Contact with and (suspected) exposure to COVID-19
CPT/HCPCS: 96361; 93005; 85025; 80048; 36415; 80320; 80329 ×2; 81025; 85610; 80076; 80307 ×8; 85730; 81003; 96375; 96374; 99285; U0003; J3360; J7030 ×2; J2405

== ENCOUNTER 2020-11-27 21:51 | Emergency (ER) | payer BC ==
[2020-11-27 22:45] LABS: Urine Blood Negative (Negative); Urine Glucose Negative (Negative); Urine Protein Negative (Negative); Urine Specific Gravity 1.025 (1.005-1.030); Urine pH 5.5 (5.0-7.0)
[2020-11-27] MEDS ORDERED: LORazepam 2 MG/ML VIAL ONE (23:21)
[2020-11-28] MEDS ORDERED: ONDANSETRON 4 MG/2 ML VIAL ONE (00:06)
[2020-11-28] MEDS ORDERED: MORPHINE 4 MG/ML SYR ONE (00:06)
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
--- NOTE | 2020-11-28 00:09 | EDPHYS ---
Physician Documentation [facility] Name: Charity Hanks Age: 40 yrs Sex: Female : 1980 Arrival Date: 11/27/2020 Time: 21:52 Bed 19 Private MD: ED Physician Ricci Urias HPI: 11/27 22:52 This 40 yrs old Female presents to ER via Ambulatory with complaints of pkl Anxiety, Lack of sleep. 22:52 The patient or guardian reports chest pain that is located primarily in the substernal pkl area. Onset: today. The pain radiates to the left arm. Associated signs and symptoms: Pertinent positives: anxiety, insomnia . The chest pain is described as dull. The patient has experienced similar episodes in the past, a few times. 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 - Social history:: Smoking status: Patient reports the use of cigarette tobacco products, smokes one-half pack cigarettes per day. ROS: 22:52 Eyes: Negative for injury, pain, redness, and discharge, ENT: Negative for injury, pkl pain, and discharge, Neck: Negative for injury, pain, and swelling. 22:52 Cardiovascular: Positive for chest pain, of the substernal. 22:52 Respiratory: Negative for cough, shortness of breath. 22:52 Abdomen/GI: Negative for abdominal pain, nausea, vomiting, and diarrhea. 22:52 Back: Negative for injury or acute deformity. 22:52 : Negative for urinary symptoms. 22:52 MS/extremity: Negative for acute changes. 22:52 Skin: Negative for rash. 22:52 Neuro: Negative for altered mental status. 22:52 Psych: Positive for anxiety, Negative for suicidal ideation. Exam: 22:52 Head/Face: Normocephalic, atraumatic. Eyes: Pupils equal round and reactive to light, pkl extra-ocular motions intact. Lids and lashes normal. Conjunctiva and sclera are non-icteric and not injected. Cornea within normal limits. Periorbital areas with no swelling, redness, or edema. ENT: Nares patent. No nasal discharge, no septal abnormalities noted. Tympanic membranes are normal and external auditory canals are clear. Oropharynx with no redness, swelling, or masses, exudates, or evidence of obstruction, uvula midline. Mucous membranes moist. Neck: Trachea midline, no thyromegaly or masses palpated, and no cervical lymphadenopathy. Supple, full range of motion without nuchal rigidity, or vertebral point tenderness. No Meningismus. Chest/axilla: Normal chest wall appearance and motion. Nontender with no deformity. No lesions are appreciated. Cardiovascular: Regular rate and rhythm with a normal S1 and S2. No gallops, murmurs, or rubs. Normal PMI, no JVD. No pulse deficits. Respiratory: Lungs have equal breath sounds bilaterally, clear to auscultation and percussion. No rales, rhonchi or wheezes noted. No increased work of breathing, no retractions or nasal flaring. Abdomen/GI: Soft, non-tender, with normal bowel sounds. No distension or tympany. No guarding or rebound. No evidence of tenderness throughout. Back: No spinal tenderness. No costovertebral tenderness. Full range of motion. Skin: Warm, dry with normal turgor. Normal color with no rashes, no lesions, and no evidence of cellulitis. MS/ Extremity: Pulses equal, no cyanosis. Neurovascular intact. Full, normal range of motion. Neuro: Awake and alert, GCS 15, oriented to person, place, time, and situation. Cranial nerves II-XII grossly intact. Motor strength 5/5 in all extremities. Sensory grossly intact. Cerebellar exam normal. Normal gait. 22:52 Psych: Behavior/mood is anxious, Affect is calm, Patient has no thoughts/intents to harm self or others. Vital Signs: 22:06 BP 115 / 89; Pulse 113; Resp 20; Temp 98.1; Pulse Ox 100% ; Weight 101.15 kg; Height 5 vg1 ft. 2 in. (157.48 cm); 23:21 BP 110 / 78; Pulse 88; Resp 20; Pulse Ox 100% on R/A; ak2 22:06 Body Mass Index 40.79 (101.15 kg, 157.48 cm) vg1 MDM: 22:43 Patient medically screened. pkl 11/28 00:07 Data reviewed: vital signs, nurses notes, lab test result(s), EKG. pkl 11/27 22:45 Order name: Urine Dipstick-Ancillary; Complete Time: 23:44 EDMS 11/27 22:51 Order name: Troponin (emerg Dept Use Only); Complete Time: 23:44 pkl 11/27 22:51 Order name: EKG; Complete Time: 22:51 pkl 11/27 22:51 Order name: Saline Lock pkl Administered Medications: 11/27 23:04 Drug: Ativan (LORazepam) 1 mg Route: IVP; Site: left antecubital; ak2 23:50 Drug: morphine 4 mg Route: IVP; Site: left antecubital; ak2 23:50 Drug: Zofran (Ondansetron) 4 mg Route: IVP; Site: left antecubital; ak2 Disposition: 11/28/20 00:08 Discharged to Home. Impression: Chest pain. Anxiety disorder. - Condition is Stable. - Medication Reconciliation Form, Thank You Letter, Antibiotic Education, Prescription Opioid Use form. - Follow up: Private Physician; When: 1 - 2 days; Reason: Re-evaluation by your physician. - Problem is new. - Symptoms have improved. Signatures: Dispatcher [employer] EDMT Ricci Urias MD MD pkl Garcia, Victoria RN RN vg1 Ross Tam ak2 Corrections: (The following items were deleted from the chart) 11/28 00:21 00:08 11/28/2020 00:08 Discharged to Home. Impression: Chest pain. Anxiety disorder. ak2 Condition is Stable. Forms are Medication Reconciliation Form, Thank You Letter, Antibiotic Education, Prescription Opioid Use. Follow up: Private Physician; When: 1 - 2 days; Reason: Re-evaluation by your physician. Problem is new. Symptoms have improved. pkl
[2020-11-28 00:53] VITALS: TEMP 98.1; O2SAT 100
[2020-11-28 00:55] VITALS: BP 110/78
== END 2020-11-28 00:21 | disposition home or self-care (01) ==
LOC: ER 21:51
DX: F41.8 Other specified anxiety disorders (principal); I10 Essential (primary) hypertension; F17.210 Nicotine dependence, cigarettes, uncomplicated
CPT/HCPCS: 36415; 81003; 84484; 93005; 96374; 96375; 99283

== ENCOUNTER 2020-12-01 10:33 | Emergency (ER) | payer BC ==
[2020-12-01] MEDS ORDERED: MORPHINE 4 MG/ML SYR ONE (11:22)
[2020-12-01] MEDS ORDERED: DIAZEPAM 10 MG/2 ML INJ SYRINGE ONE (11:22)
[2020-12-01] MEDS ORDERED: ONDANSETRON 4 MG/2 ML VIAL ONE (11:22)
[2020-12-01 11:34] LABS: Absolute Lymphocytes (CBC) 2.5 K/uL (0.7-4.9); Basophils % 1.1 % (0-1.3); Hematocrit 39.1 % (36.0-45.0); MPV 8.2 fL (7.6-11.3); RBC Red Blood Cell Count 4.57 M/uL (3.86-4.86)
[2020-12-01] MEDS ORDERED: NA CHLORIDE 0.9% 1,000 ML ONE (11:36)
[2020-12-01 11:40] LABS: Protime INR 0.98
[2020-12-01 11:52] LABS: ALT/SGPT 24 U/L (12-78); AST/SGOT 11 U/L (15-37); Albumin 3.2 g/dL (3.4-5.0); Alkaline Phosphatase 93 U/L (45-117); BUN Blood Urea Nitrogen 13 mg/dL (7-18); Bicarbonate 23 mmol/L (21-32); Bilirubin Direct < 0.1 mg/dL (0-0.2); Bilirubin Total 0.2 mg/dL (0.2-1.0); Glucose Level 131 mg/dL (74-106); NT PRO-BNP 35 pg/mL (<125); Potassium 4.1 mmol/L (3.5-5.1); Protein, Total 6.9 g/dL (6.4-8.2); Sodium Level 139 mmol/L (136-145); Troponin (Emerg Dept Use Only) < 0.02 ng/mL (0.0-0.045)
--- NOTE | 2020-12-01 12:07 | RAD REPORT ---
EXAM DESCRIPTION: RAD - Chest Single View - 12/01/2020 12:00 pm CLINICAL HISTORY: CHEST PAIN Chest pain. COMPARISON: Chest Single View dated 11/03/2020; Chest Single View dated 10/11/2020; Chest Single View d ated 09/08/2020; Chest Single View dated 09/07/2020 FINDINGS: Portable technique limits examination quality. The lungs are grossly clear. The heart is upper limit of normal in size. No displaced fractures. IMPRESSION: No acute intrathoracic process suspected.
[2020-12-01 12:10] LABS: Blood Morphology Comment NOT SEEN (NOT SEEN); Platelet Estimate ADEQ; White Blood Cell Scan OK (OK)
--- NOTE | 2020-12-01 12:55 | RAD REPORT ---
EXAM DESCRIPTION: CT - Chest For Pe Angio - 12/01/2020 12:37 pm CLINICAL HISTORY: CHEST PAIN COMPARISON: Chest For Pe Angio dated 10/11/2020; Chest Single View dated 12/01/2020 TECHNIQUE: Dynamically enhanced 3 mm thick images of the chest were obtained during administration o f approximately 150mL Isovue 370 IV contrast. Coronal and oblique MIP reconstruction images were gene rated and reviewed. Exam utilizes a protocol to evaluate the pulmonary arterial tree. All CT scans are performed using dose optimization technique as appropriate and may include automated exposure control or mA/KV adjustment according to patient size. FINDINGS: No pulmonary emboli are identified. The aorta as imaged shows no acute or suspicious finding. No pericardial thickening or effusion. No dense consolidation mass. There is some hazy ground-glass opacification that could be alveolar sabine ma, infiltrate or atelectasis. Interstitial markings are prominent and could be interstitial edema or infiltrate. No pleural effusion or pleural thickening. No mediastinal or hilar suspicious masses. No chest wall masses or abnormal axillary lymphadenopathy. IMPRESSION: No pulmonary emboli identified. Prominent interstitial pattern and some scattered alveolar opacities in the posterior lung moon. In terstitial pulmonary edema or interstitial infiltrate both possible.
[2020-12-01] MEDS ORDERED: LORazepam 2 MG/ML VIAL ONE ×2 (13:48→13:58)
[2020-12-01] MEDS ORDERED: ACETAMINOPHEN 500 MG TAB ONE ×2 (13:48→13:58)
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
[2020-12-01 14:30] VITALS: O2SAT 99
[2020-12-01 14:31] VITALS: TEMP 97.8
[2020-12-01 14:33] VITALS: BP 115/74
--- NOTE | 2020-12-02 11:56 | EKG ---
Test Date: 2020-12-01 Test Time: 10:49:39 Head Turning Machine Operator: JENN MEASUREMENT RESULTS: Intervals: Rate: 82 MS: 154 QRSD: 78 QT: 388 QTc: 453 [place]: P: 3 MS: 154 QRS: -48 T: 5 INTERPRETIVE STATEMENTS: Normal sinus rhythm Left axis deviation Low voltage QRS Abnormal ECG Compared to ECG 11/27/2020 23:09:03 Left-axis deviation now present Low QRS voltage now present Myocardial infarct finding no longer present Electronically Signed On 12-02-20 11:54:08 CDT by Edgar Bazzi
== END 2020-12-01 14:21 | disposition home or self-care (01) ==
LOC: ER 10:33
DX: F41.8 Other specified anxiety disorders (principal); I10 Essential (primary) hypertension; F17.210 Nicotine dependence, cigarettes, uncomplicated
CPT/HCPCS: 93005; 85025; 80048; 36415; 83735; 85610; 85379; 80076; 84484; 83880; 71275; 71045; 99284; Q9967; J3360; J7030; J2405

== ENCOUNTER 2020-12-02 12:36 | Emergency (ER) | payer BC ==
[2020-12-02 13:40] LABS: Basophils % 1.2 % (0-1.3); Hematocrit 37.2 % (36.0-45.0); MPV 8.1 fL (7.6-11.3)
[2020-12-02 13:41] LABS: Protime INR 0.98
[2020-12-02 13:44] LABS: Urine Blood 2+ (Negative); Urine Glucose Negative (Negative); Urine Protein Negative (Negative); Urine pH 5.5 (5.0-7.0)
[2020-12-02 13:54] LABS: ALT/SGPT 39 U/L (12-78); AST/SGOT 17 U/L (15-37); Albumin 3.1 g/dL (3.4-5.0); Alkaline Phosphatase 96 U/L (45-117); BUN Blood Urea Nitrogen 9 mg/dL (7-18); Bicarbonate 24 mmol/L (21-32); Bilirubin Direct < 0.1 mg/dL (0-0.2); Bilirubin Total 0.1 mg/dL (0.2-1.0); Glucose Level 124 mg/dL (74-106); Magnesium 1.8 mg/dL (1.8-2.4); NT PRO-BNP 355 pg/mL (<125); Potassium 3.6 mmol/L (3.5-5.1); Protein, Total 6.6 g/dL (6.4-8.2); Sodium Level 141 mmol/L (136-145); Troponin (Emerg Dept Use Only) < 0.02 ng/mL (0.0-0.045)
[2020-12-02 14:01] LABS: Barbiturates NEGATIVE (NEGATIVE); Benzodiazepines NEGATIVE (NEGATIVE); Cocaine NEGATIVE (NEGATIVE); METHAMPHETAM NEGATIVE (NEGATIVE); Methadone NEGATIVE (NEGATIVE); Opiates NEGATIVE (NEGATIVE); Phencyclidine NEGATIVE (NEGATIVE); THC Cannibis NEGATIVE (NEGATIVE)
[2020-12-02] MEDS ORDERED: ASPIRIN 81 MG CHEWABLE TABLET ONE (14:08)
[2020-12-02] MEDS ORDERED: DIAZEPAM 10 MG/2 ML INJ SYRINGE ONE (14:08)
[2020-12-02] MEDS ORDERED: NA CHLORIDE 0.9% 1,000 ML ONE (14:08)
--- NOTE | 2020-12-02 14:10 | RAD REPORT ---
EXAM DESCRIPTION: Akiko Single View12/02/2020 2:05 pm CLINICAL HISTORY: Chest pain COMPARISON: December 01, 2020 FINDINGS: The lungs appear clear of acute infiltrate. The heart is mildly enlarged IMPRESSION: No acute abnormalities displayed
[2020-12-02] MEDS ORDERED: KETOROLAC 30 MG/ML INJ ONE (14:36)
--- NOTE | 2020-12-02 15:27 | RAD REPORT ---
EXAM DESCRIPTION: USExtrem Venous W Compress Bil12/02/2020 2:51 pm CLINICAL HISTORY: Leg pain COMPARISON: none FINDINGS: The common femoral, superficial femoral, popliteal and posterior tibial veins bilaterally are compressible and demonstrate augmentation. Doppler demonstrates good flow. IMPRESSION: No evidence of deep venous thrombosis involving either lower extremity.
--- NOTE | 2020-12-02 15:49 | EDPHYS ---
Physician Documentation [facility] Name: Charity Hanks Age: 40 yrs Sex: Female : 1980 Arrival Date: 12/02/2020 Time: 12:37 Bed 18 Private MD: ED Physician Wilfredo Asencio HPI: 12/02 13:15 This 40 yrs old Female presents to ER via Ambulatory with complaints of Chest cp Pain, Low Blood Pressure. 13:15 The patient or guardian reports chest pain that is located primarily in the anterior cp chest wall, bilaterally. Onset: today. The pain does not radiate. 13:15 Associated signs and symptoms: Pertinent positives: dizziness, lower extremity pain, cp lightheadedness, shortness of breath. The chest pain is described as aching. Duration: The patient or guardian reports a single episode, that is still ongoing. Patient reports taking blood pressure at home with upper arm cuff and wrist cuff and measuring systolic pressure of 50. Patient with history of HTN and reports taking Losartan daily. Patient also complaining of anxiety and requesting valium. Patient seen in ED yesterday with similar complaints of chest pain and anxiety. 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 Flu vaccine is not up to date. - Social history:: Smoking status: Patient reports the use of cigarette tobacco products, smokes one-half pack cigarettes per day. ROS: 13:20 Constitutional: Negative for body aches, chills, fever, poor PO intake. cp 13:20 Eyes: Positive for visual disturbance, Negative for pain, redness, vision loss. cp 13:20 ENT: Negative for ear pain, sore throat, difficulty swallowing, difficulty handling secretions. 13:20 Cardiovascular: Positive for chest pain, Negative for edema, palpitations. 13:20 Respiratory: Negative for cough, shortness of breath, wheezing. 13:20 Abdomen/GI: Negative for abdominal pain, nausea, vomiting, and diarrhea, black/tarry stool, rectal bleeding. 13:20 Back: Negative for pain at rest, pain with movement. 13:20 Neuro: Positive for dizziness, Negative for altered mental status, headache, syncope, weakness. 13:20 All other systems are negative. Exam: 13:25 ECG was reviewed by the Attending Physician. cp 13:27 Constitutional: The patient appears in no acute distress, alert, awake, cp non-diaphoretic, non-toxic, well developed, well nourished, obese. 13:27 Head/Face: Normocephalic, atraumatic. cp 13:27 Eyes: Periorbital structures: appear normal, Pupils: equal, round, and reactive to light and accomodation, Extraocular movements: intact throughout, Conjunctiva: normal, no exudate, no injection, Sclera: no appreciated abnormality, Lids and lashes: appear normal, bilaterally. 13:27 ENT: External ear(s): are unremarkable, Nose: is normal, Mouth: Lips: moist, Oral mucosa: moist, Posterior pharynx: Airway: no evidence of obstruction, patent. 13:27 Neck: ROM/movement: is normal, is supple, without pain, no range of motions limitations. 13:27 Chest/axilla: Inspection: normal. 13:27 Cardiovascular: Rate: normal, Rhythm: regular, Edema: is not appreciated, JVD: is not appreciated. 13:27 Respiratory: the patient does not display signs of respiratory distress, Respirations: normal, no use of accessory muscles, no retractions, labored breathing, is not present, Breath sounds: are clear throughout, no decreased breath sounds, no stridor, no wheezing. 13:27 Abdomen/GI: Exam negative for discomfort, distension, guarding, Inspection: abdomen appears normal. 13:27 Back: pain, is absent, ROM is normal. Vital Signs: 12:44 BP 132 / 83; Pulse 92; Resp 17; Temp 98.6; Pulse Ox 98% on R/A; Weight 99.79 kg; Height ll1 5 ft. 2 in. (157.48 cm); Pain 9/10; 14:14 BP 119 / 66; Pulse 80; Resp 17 S; Pulse Ox 97% on R/A; jd3 15:42 BP 117 / 65; Pulse 81; Resp 17 S; Pulse Ox 97% on R/A; jd3 16:29 BP 133 / 83; Pulse 80; Resp 16 S; Pulse Ox 98% on R/A; jd3 12:44 Body Mass Index 40.24 (99.79 kg, 157.48 cm) ll1 MDM: 13:14 Patient medically screened. 13:30 Differential diagnosis: abnormal EKG, acute myocardial infarction, acute pericarditis, cp anxiety, chest wall pain, pleurisy, pneumonia, pneumothorax, pulmonary embolus, stable angina, unstable angina. 15:45 Data reviewed: vital signs, nurses notes, lab test result(s), EKG, radiologic studies, cp ultrasound. ED course: VSS. Review of [place] prescription monitor program website shows narcotic score of 320, sedative score of 361 and overdose risk score of 540. Patient received #30 1 mg Clonazepam on 11-07-2020. 15:47 Response to treatment: Symptoms improved. Results today negative for acute findings. cp Patient with thorough work-up yesterday to include cta of chest tro r/o pulmonary embolism. Will discharge to home for continued monitoring. 12/02 13:10 Order name: Basic Metabolic Panel; Complete Time: 13:56 nh 12/02 14:50 Interpretation: Normal except: CL 112; GLUC 124. 12/02 13:10 Order name: CBC with Diff; Complete Time: 13:56 nh 12/02 14:50 Interpretation: Normal except: MN% 2.9. 12/02 13:10 Order name: LFT's; Complete Time: 13:56 nh 12/02 14:50 Interpretation: Normal except: BILIT 0.1; ALB 3.1; A/G 0.9. 12/02 13:10 Order name: Magnesium; Complete Time: 13:56 nh 12/02 13:10 Order name: NT PRO-BNP; Complete Time: 13:56 nh 12/02 15:19 Interpretation: Abnormal: NT PRO-BNP 355. 12/02 13:10 Order name: PT-INR; Complete Time: 13:56 nh 12/02 13:10 Order name: Troponin (emerg Dept Use Only); Complete Time: 13:56 nh 12/02 15:20 Interpretation: Within normal limits: TROPED < 0.02. 12/02 13:10 Order name: XRAY Chest (1 view); Complete Time: 14:49 nh 12/02 14:49 Interpretation: Report reviewed. 12/02 13:33 Order name: UDS 12/02 13:34 Order name: Urine Drug Screen; Complete Time: 14:49 EDIA 12/02 15:20 Interpretation: Reviewed. 12/02 13:44 Order name: Urine Dipstick-Ancillary; Complete Time: 13:56 EDIA 12/02 15:20 Interpretation: Normal except: UBLD 2+. 12/02 13:56 Order name: US Extremity Venous W Compression Edi; Complete Time: 15:28 12/02 15:28 Interpretation: Report reviewed. 12/02 13:59 Order name: Urine --Ancillary (enter results); Complete Time: 14:49 eb 12/02 13:10 Order name: EKG; Complete Time: 13:10 nh 12/02 13:10 Order name: Cardiac monitoring; Complete Time: 13:30 nh 12/02 13:10 Order name: EKG - Nurse/Tech; Complete Time: 13:30 nh 12/02 13:10 Order name: IV Saline Lock; Complete Time: 13:30 nh 12/02 13:10 Order name: Labs collected and sent; Complete Time: 13:30 nh 12/02 13:10 Order name: O2 Per Protocol; Complete Time: 13:30 nh 12/02 13:10 Order name: O2 Sat Monitoring; Complete Time: 13:31 nh 12/02 13:33 Order name: Urine Test (obtain specimen); Complete Time: 13:53 12/02 13:33 Order name: Urine Dipstick-Ancillary (obtain specimen); Complete Time: 13:53 cp EC:25 Rate is 91 beats/min. Rhythm is regular. HI interval is normal. QRS interval is normal. cp QT interval is normal. T waves are Inverted in leads III, aVR. Interpreted by me. Reviewed by me. Administered Medications: 13:34 CANCELLED (Physician Discretion): Diazepam 2 mg IVP once cp 13:53 Drug: Aspirin Chewable Tablet 324 mg Route: PO; jd3 14:50 Follow up: Response: No adverse reaction jd3 13:53 Drug: NS 0.9% 1000 ml Route: IV; Rate: 1 bolus; Site: right antecubital; jd3 14:50 Follow up: Response: No adverse reaction; IV Status: Completed infusion; IV Intake: jd3 1000ml 13:53 Drug: Diazepam 5 mg Route: IVP; Site: right antecubital; jd3 14:50 Follow up: Response: No adverse reaction jd3 14:18 Drug: Ketorolac 15 mg Route: IVP; Site: right antecubital; jd3 15:10 Follow up: Response: No adverse reaction jd3 15:36 Drug: morphine 4 mg Route: IVP; Site: right antecubital; jd3 16:30 Follow up: Response: No adverse reaction; RASS: Alert and Calm (0) jd3 Disposition: 16:35 Chart complete. cp 16:38 Co-signature as Attending Physician, Wilfredo Asencio MD I agree with the assessment and kdr plan of care. Disposition: 12/02/20 15:48 Discharged to Home. Impression: Anxiety disorder, unspecified, Other chest pain. - Condition is Stable. - Discharge Instructions: Nonspecific Chest Pain, Generalized Anxiety Disorder. - Prescriptions for Ativan 1 mg Oral Tablet - take 1 tablet by ORAL route every 8 hours As needed; 10 tablet. Naprosyn 500 mg Oral Tablet - take 1 tablet by ORAL route 2 times per day take with food; 20 tablet. - Medication Reconciliation Form, Thank You Letter, Antibiotic Education, Prescription Opioid Use form. - Follow up: Private Physician; When: 2 - 3 days; Reason: Recheck today's complaints. - Problem is an ongoing problem. - Symptoms have improved. Signatures: Dispatcher [employer] EDMS Wilfredo Asencio MD MD kdr Mayank Arvizu PA PA cp Thompson, Moriah mt Davies, Jonathon, RN RN jSandra Gallo RN RN ll1 Corrections: (The following items were deleted from the chart) 13:34 13:33 Diazepam 2 mg IVP once ordered. cp cp 16:32 15:48 12/02/2020 15:48 Discharged to Home. Impression: Anxiety disorder, unspecified; jd3 Other chest pain. Condition is Stable. Forms are Medication Reconciliation Form, Thank You Letter, Antibiotic Education, Prescription Opioid Use. Follow up: Private Physician; When: 2 - 3 days; Reason: Recheck today's complaints. Problem is an ongoing problem. Symptoms have improved. cp 12/03 03:19 03:17 Response to treatment: Symptoms improved. Results today negative for acute cp findings. Patient with thorough work-up yesterday to include cta of chest tro r/o pulmonary embolism. Will discharge to home for continued monitoring, cp
--- NOTE | 2020-12-02 15:49 | ER ---
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 Fells weak and ll1 dizzy, near syncope feeling. States her BP at home was 50/42. Muscles feel achy and tight. States she is anxious right now. Coronavirus screen: Client denies travel out of the [place] in the last 14 days. At this time, the client does not indicate any symptoms associated with coronavirus-19. Ebola Screen: Patient denies travel to an Ebola-affected area in the 21 days before illness onset. Initial Sepsis Screen: Does the patient meet any 2 criteria? HR > 90 bpm. No. Patient's initial sepsis screen is negative. Does the patient have a suspected source of infection? No. Patient's initial sepsis screen is negative. Risk Assessment: Do you want to hurt yourself or someone else? Patient reports no desire to harm self or others. Onset of symptoms was December 02, 2020. 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 Flu vaccine is not up to date. - Social history:: Smoking status: Patient reports the use of cigarette tobacco products, smokes one-half pack cigarettes per day. Screenin:46 Abuse screen: Denies threats or abuse. Nutritional screening: No deficits noted. jd3 Tuberculosis screening: No symptoms or risk factors identified. Fall Risk Secondary diagnosis (15 points) feeling dizzy. Ambulatory Aid- None/Bed Rest/Nurse Assist (0 pts). Gait- Weak (10 pts.). Mental Status- Oriented to own ability (0 pts). Total Browne Fall Scale indicates Low Risk Score (25-44 pts). Fall prevention measures have been instituted. Side Rails Up X 2 Placed close to Nursing Station Frequent Obs/Assesments occuring. Assessment: 13:33 General: Appears in no apparent distress. comfortable, Behavior is calm, cooperative, jd3 appropriate for age. Pain: Complains of pain in head and chest Quality of pain is described as pressure. Neuro: Level of Consciousness is awake, alert, obeys commands, Oriented to person, place, time, situation. Cardiovascular: Denies chest pain, Capillary refill < 3 seconds Patient's skin is warm and dry. Respiratory: Airway is patent Respiratory effort is even, unlabored, Respiratory pattern is regular, symmetrical, Denies cough, shortness of breath. GI: Reports nausea. : No signs and/or symptoms were reported regarding the genitourinary system. EENT: No signs and/or symptoms were reported regarding the EENT system. Derm: Skin is intact, Skin is dry, Skin is normal, Skin temperature is warm. Musculoskeletal: Circulation, motion, and sensation intact. Range of motion: intact in all extremities. 14:45 Reassessment: Patient appears in no apparent distress at this time. No changes from jd3 previously documented assessment. Patient and/or family updated on plan of care and expected duration. Pain level reassessed. Patient is alert, oriented x 3, equal unlabored respirations, skin warm/dry/pink. 15:41 Reassessment: Patient appears in no apparent distress at this time. Patient and/or jd3 family updated on plan of care and expected duration. Pain level reassessed. Patient is alert, oriented x 3, equal unlabored respirations, skin warm/dry/pink. pt reported continued pain, medicated at ordered, see MAR. 16:29 Reassessment: Patient appears in no apparent distress at this time. Patient and/or jd3 family updated on plan of care and expected duration. Pain level reassessed. Patient is alert, oriented x 3, equal unlabored respirations, skin warm/dry/pink. pt with even and steady gait upon discharge. denied questions at this time Patient denies pain at this time. Patient states feeling better. Vital Signs: 12:44 BP 132 / 83; Pulse 92; Resp 17; Temp 98.6; Pulse Ox 98% on R/A; Weight 99.79 kg; Height ll1 5 ft. 2 in. (157.48 cm); Pain 9/10; 14:14 BP 119 / 66; Pulse 80; Resp 17 S; Pulse Ox 97% on R/A; jd3 15:42 BP 117 / 65; Pulse 81; Resp 17 S; Pulse Ox 97% on R/A; jd3 16:29 BP 133 / 83; Pulse 80; Resp 16 S; Pulse Ox 98% on R/A; jd3 12:44 Body Mass Index 40.24 (99.79 kg, 157.48 cm) ll1 ED Course: 12:37 Patient arrived in ED. bp1 12:38 Arm band placed on Patient placed in an exam room, on a stretcher. ll1 12:40 Leo Dupree, JAMES is Primary Nurse. jd3 12:46 Triage completed. ll1 12:47 Patient has correct armband on for positive identification. Placed in gown. Bed in low jd3 position. Call light in reach. Side rails up X2. engine monitor on. Pulse ox on. NIBP on. 13:12 Mayank Arvizu PA is PHCP. cp 13:12 Wilfredo Asencio MD is Attending Physician. cp 13:35 Inserted saline lock: 22 gauge in right antecubital area, using aseptic technique. jd3 Blood collected. 14:05 XRAY Chest (1 view) In Process Unspecified. EDMS 14:50 US Extremity Venous W Compression Edi In Process Unspecified. EDMS 16:29 No provider procedures requiring assistance completed. IV discontinued, intact, jd3 bleeding controlled, No redness/swelling at site. Pressure dressing applied. Administered Medications: 13:34 CANCELLED (Physician Discretion): Diazepam 2 mg IVP once cp 13:53 Drug: Aspirin Chewable Tablet 324 mg Route: PO; jd3 14:50 Follow up: Response: No adverse reaction jd3 13:53 Drug: NS 0.9% 1000 ml Route: IV; Rate: 1 bolus; Site: right antecubital; jd3 14:50 Follow up: Response: No adverse reaction; IV Status: Completed infusion; IV Intake: jd3 1000ml 13:53 Drug: Diazepam 5 mg Route: IVP; Site: right antecubital; jd3 14:50 Follow up: Response: No adverse reaction jd3 14:18 Drug: Ketorolac 15 mg Route: IVP; Site: right antecubital; jd3 15:10 Follow up: Response: No adverse reaction jd3 15:36 Drug: morphine 4 mg Route: IVP; Site: right antecubital; jd3 16:30 Follow up: Response: No adverse reaction; RASS: Alert and Calm (0) jd3 Intake: 14:50 IV: 1000ml; Total: 1000ml. jd3 Outcome: 15:48 Discharge ordered by MD. cp 16:30 Discharged to home ambulatory, with family. jd3 16:30 Condition: stable 16:30 Discharge instructions given to patient, Instructed on discharge instructions, follow up and referral plans. medication usage, Demonstrated understanding of instructions, follow-up care, medications, Prescriptions given X 2. 16:32 Patient left the ED. jd3 Signatures: Dispatcher [employer] EDMS Mayank Arvizu PA PA cp Davies, Jonathon, RN RN jSandra Gallo RN RN ll1 Leia Leon [facility] Corrections: (The following items were deleted from the chart) 16:30 16:29 Reassessment: Patient appears in no apparent distress at this time. Patient jd3 and/or family updated on plan of care and expected duration. Pain level reassessed. Patient is alert, oriented x 3, equal unlabored respirations, skin warm/dry/pink. Patient denies pain at this time. Patient states feeling better. jd3
[2020-12-02] MEDS ORDERED: MORPHINE 4 MG/ML SYR ONE (15:53)
[2020-12-02 16:46] VITALS: TEMP 98.6
[2020-12-02 17:00] VITALS: BP 133/83; O2SAT 98
--- NOTE | 2020-12-03 07:49 | EKG ---
Test Date: 2020-12-02 Test Time: 13:17:24 Ear Specialist: MUNIR MEASUREMENT RESULTS: Intervals: Rate: 91 ME: 150 QRSD: 82 QT: 372 QTc: 457 [place]: P: 29 ME: 150 QRS: -24 T: 11 INTERPRETIVE STATEMENTS: Normal sinus rhythm Anterior infarct, age undetermined Abnormal ECG Compared to ECG 12/01/2020 10:49:39 Myocardial infarct finding now present Left-axis deviation no longer present Electronically Signed On 12-03-20 07:46:31 CDT by Edgar Bazzi
== END 2020-12-02 16:32 | disposition home or self-care (01) ==
LOC: ER 12:36
DX: F41.9 Anxiety disorder, unspecified (principal); I10 Essential (primary) hypertension; F17.210 Nicotine dependence, cigarettes, uncomplicated
CPT/HCPCS: 96361; 93005; 85025; 80048; 36415; 83735; 81025; 85610; 80076; 80307 ×8; 81003; 84484; 83880; 71045; 93970; 96375; 96374; 99284; J3360; J7030

== ENCOUNTER 2020-12-08 00:04 | Emergency (ER) | payer BC ==
[2020-12-08] MEDS ORDERED: KETOROLAC 30 MG/ML INJ ONE (01:23)
--- NOTE | 2020-12-08 01:48 | ER ---
Nurse's Notes [facility] Name: Charity Hanks Age: 40 yrs Sex: Female : 1980 Arrival Date: 12/08/2020 Time: 00:19 Bed 16 Private MD: Diagnosis: Pain in left lower leg Presentation: 12/08 00:21 Chief complaint: Patient states: knot popped on left lateral leg on Saturday, now feels iw like pins and needles from knee down, and if she lays on left hip her whole leg feels like pins a dn needles. Coronavirus screen: At this time, the client does not indicate any symptoms associated with coronavirus-19. Ebola Screen: Patient negative for fever greater than or equal to 101.5 degrees Fahrenheit, and additional compatible Ebola Virus Disease symptoms Patient denies exposure to infectious person. Patient denies travel to an Ebola-affected area in the 21 days before illness onset. No symptoms or risks identified at this time. Initial Sepsis Screen: Does the patient meet any 2 criteria? No. Patient's initial sepsis screen is negative. Does the patient have a suspected source of infection? No. Patient's initial sepsis screen is negative. Risk Assessment: Do you want to hurt yourself or someone else? Patient reports no desire to harm self or others. Onset of symptoms was December 04, 2020. 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 - Social history:: Smoking status: Patient reports the use of cigarette tobacco products, smokes one-half pack cigarettes per day. - Family history:: not pertinent. - Hospitalizations: : No recent hospitalization is reported. Screenin:53 Abuse screen: Denies threats or abuse. Denies injuries from another. Nutritional jm8 screening: No deficits noted. Tuberculosis screening: No symptoms or risk factors identified. Fall Risk None identified. Assessment: 00:51 General: Appears in no apparent distress. uncomfortable, Behavior is calm, cooperative, jm8 appropriate for age. Pain: Complains of pain in left leg Pain currently is 10 out of 10 on a pain scale. Quality of pain is described as sharp, shooting, stabbing, piercing, Alleviated by relaxation, Aggravated by increased activity. Neuro: No deficits noted. Level of Consciousness is awake, alert, obeys commands, Oriented to person, place, time. Cardiovascular: No deficits noted. Respiratory: No deficits noted. Airway is patent Trachea midline Respiratory effort is even, unlabored, Respiratory pattern is regular, symmetrical. GI: No deficits noted. No signs and/or symptoms were reported involving the gastrointestinal system. : No deficits noted. No signs and/or symptoms were reported regarding the genitourinary system. EENT: No deficits noted. No signs and/or symptoms were reported regarding the EENT system. Derm: No deficits noted. No signs and/or symptoms reported regarding the dermatologic system. Musculoskeletal: No deficits noted. No signs and/or symptoms reported regarding the musculoskeletal system. Reports numbness in left leg pain in left leg since saturday. Vital Signs: 00:21 BP 140 / 100; Pulse 96; Resp 16; Temp 98.5; Pulse Ox 100% on R/A; Weight 99.79 kg; iw Height 5 ft. 2 in. (157.48 cm); 02:01 BP 143 / 83; Pulse 94; Resp 16; Pulse Ox 100% on R/A; jm8 00:21 Body Mass Index 40.24 (99.79 kg, 157.48 cm) iw ED Course: 00:19 Patient arrived in ED. es 00:23 Triage completed. iw 00:25 Arm band placed on. iw 00:34 Carmine Jackson MD is Attending Physician. rn 00:53 Patient has correct armband on for positive identification. Bed in low position. Call jm8 light in reach. Side rails up X2. 01:48 Extremity Venous Uni Ltd US In Process Unspecified. EDMS 02:01 No provider procedures requiring assistance completed. Patient did not have IV access jmBarbara during this emergency room visit. Administered Medications: 01:05 Drug: TORadol (ketorolac) 30 mg Route: IM; Site: right deltoid; jm8 01:26 Follow up: Response: No adverse reaction; Pain is decreased jm8 Outcome: 01:48 Discharge ordered by . rn 02:01 Discharged to home ambulatory. jm8 02:01 Condition: good 02:01 Discharge instructions given to patient, Instructed on discharge instructions, follow up and referral plans. medication usage, Demonstrated understanding of instructions, follow-up care, medications. 02:02 Patient left the ED. jm8 Signatures: Dispatcher [employer] Lissa Sandoval Irene, RN RN iw Nieto, Roman, MD MD rn Malcaba, Joseph, RN RN jm8
--- NOTE | 2020-12-08 01:48 | EDPHYS ---
Physician Documentation [facility] Name: Charity Hanks Age: 40 yrs Sex: Female : 1980 Arrival Date: 12/08/2020 Time: 00:19 Bed 16 Private MD: ED Physician Carmine Jackson HPI: 12/08 01:00 This 40 yrs old Female presents to ER via Ambulatory with complaints of KNOT rn ON LEG. 01:00 The patient presents with swelling. The complaints affect the left galloway. Onset: The rn symptoms/episode began/occurred 2 day(s) ago. Modifying factors: The symptoms are alleviated by nothing. the symptoms are aggravated by nothing. Associated signs and symptoms: Pertinent positives: swelling, Pertinent negatives calf tenderness, fever, rash, warmth, weakness. Severity of symptoms: At their worst the symptoms were mild, in the emergency department the symptoms are unchanged. The patient has not experienced similar symptoms in the past. The patient has not recently seen a physician. Reports 2 days of focal swelling LLE with pain at that location. No redness, no fever. Also reports intermittent tingling of left leg from hip down, also started around the same time she noticed the bump. No hx of dvt/PE. . 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 - Social history:: Smoking status: Patient reports the use of cigarette tobacco products, smokes one-half pack cigarettes per day. - Family history:: not pertinent. - Hospitalizations: : No recent hospitalization is reported. ROS: 01:00 Constitutional: Negative for fever, chills, and weight loss, Cardiovascular: Negative rn for chest pain, palpitations, and edema, Respiratory: Negative for shortness of breath, cough, wheezing, and pleuritic chest pain, Abdomen/GI: Negative for abdominal pain, nausea, vomiting, diarrhea, and constipation, Back: Negative for injury and pain, MS/Extremity: Negative for injury and deformity, Skin: Negative for injury, discoloration Exam: 01:00 Constitutional: This is a well developed, well nourished patient who is awake, alert, rn and in no acute distress. Cardiovascular: Regular rate and rhythm. No pulse deficits. Skin: Warm, dry with normal turgor. Normal color with no rashes, no lesions, and no evidence of cellulitis. MS/ Extremity: Pulses equal, no cyanosis. Neurovascular intact. Full, normal range of motion. Equal circumference. 1-2 cm area of swelling and nodularity left distal pre-tibial region, no discoloration or warmth. No calf tenderness. No tenderness along deep venous system. Vital Signs: 00:21 BP 140 / 100; Pulse 96; Resp 16; Temp 98.5; Pulse Ox 100% on R/A; Weight 99.79 kg; iw Height 5 ft. 2 in. (157.48 cm); 02:01 BP 143 / 83; Pulse 94; Resp 16; Pulse Ox 100% on R/A; jm8 00:21 Body Mass Index 40.24 (99.79 kg, 157.48 cm) iw MDM: 00:34 Patient medically screened. rn 01:46 Differential diagnosis: superficial thrombophlebitis, DVT, radiculopathy. Data rn reviewed: vital signs, nurses notes, radiologic studies, ultrasound, and as a result, I will discharge patient. Counseling: I had a detailed discussion with the patient and/or guardian regarding: the historical points, exam findings, and any diagnostic results supporting the discharge/admit diagnosis, radiology results, the need for outpatient follow up, to return to the emergency department if symptoms worsen or persist or if there are any questions or concerns that arise at home. Response to treatment: the patient's symptoms have mildly improved after treatment, and as a result, I will discharge patient. Special discussion: I discussed with the patient/guardian in detail that at this point there is no indication for admission to the hospital. It is understood, however, that if the symptoms persist or worsen the patient needs to return immediately for re-evaluation. ED course: Neg DVT u/s per U/S tech, will dc home. . 12/08 00:43 Order name: Extremity Venous Uni Ltd rn Administered Medications: 01:05 Drug: TORadol (ketorolac) 30 mg Route: IM; Site: right deltoid; jm8 01:26 Follow up: Response: No adverse reaction; Pain is decreased jm8 Disposition: 12/08/20 01:48 Discharged to Home. Impression: Pain in left lower leg. - Condition is Stable. - Discharge Instructions: Musculoskeletal Pain. - Medication Reconciliation Form, Thank You Letter, Antibiotic Education, Prescription Opioid Use form. - Follow up: Private Physician; When: As needed; Reason: Recheck today's complaints, Re-evaluation by your physician. - Problem is new. - Symptoms have improved. Signatures: Dispatcher [employer] EDNazanin Fabian RN RN iw Nieto, Roman, MD MD rn Malcaba, Joseph, RN RN jm8 Corrections: (The following items were deleted from the chart) 02:02 01:48 12/08/2020 01:48 Discharged to Home. Impression: Pain in left lower leg. jm8 Condition is Stable. Forms are Medication Reconciliation Form, Thank You Letter, Antibiotic Education, Prescription Opioid Use. Follow up: Private Physician; When: As needed; Reason: Recheck today's complaints, Re-evaluation by your physician. Problem is new. Symptoms have improved. rn
[2020-12-08 02:09] VITALS: TEMP 98.5; O2SAT 100
[2020-12-08 02:12] VITALS: BP 143/83
--- NOTE | 2020-12-08 08:05 | RAD REPORT ---
EXAM DESCRIPTION: USExtremity Venous Uni Ltd12/08/2020 1:49 am CLINICAL HISTORY: left leg pain COMPARISON: November 2020 FINDINGS: Left common femoral, superficial femoral, popliteal and posterior tibial veins are compre ssible and demonstrate augmentation. Doppler demonstrates good flow. Patient has a palpable area within the lateral calf. Ultrasound does not demonstrate an underlying ma ss IMPRESSION: No evidence of deep venous thrombosis involving the left lower extremity.
== END 2020-12-08 02:02 | disposition home or self-care (01) ==
LOC: ER 00:04
DX: M79.662 Pain in left lower leg (principal); I10 Essential (primary) hypertension; F41.8 Other specified anxiety disorders; F17.210 Nicotine dependence, cigarettes, uncomplicated
CPT/HCPCS: 93971; 96372; 99283

== ENCOUNTER 2020-12-15 21:45 | Emergency (ER) | payer BC ==
[2020-12-16 01:28] LABS: Absolute Lymphocytes (CBC) 4.4 K/uL (0.7-4.9); Basophils % 1.4 % (0-1.3); Hematocrit 43.6 % (36.0-45.0); Lymphocytes % 31.6 % (15.3-44.8); MPV 7.9 fL (7.6-11.3); RBC Red Blood Cell Count 5.19 M/uL (3.86-4.86)
--- NOTE | 2020-12-16 01:29 | ER ---
Nurse's Notes [facility] Name: Charity Hanks Age: 40 yrs Sex: Female : 1980 Arrival Date: 12/15/2020 Time: 22:59 Bed 13 Private MD: Diagnosis: Suicidal ideations;Major depressive disorder, recurrent;Anxiety disorder due to known physiological condition Presentation: 12/15 23:11 Chief complaint: Patient states: she was d/c from [facility] on the for bb suicidal ideations and is taking Seroquel but this past week she started having the same feeling of worthlessness and wanting to kill herself. Coronavirus screen: At this time, the client does not indicate any symptoms associated with coronavirus-19. Ebola Screen: No symptoms or risks identified at this time. Initial Sepsis Screen: Does the patient meet any 2 criteria? No. Patient's initial sepsis screen is negative. Does the patient have a suspected source of infection? No. Patient's initial sepsis screen is negative. Risk Assessment: Do you want to hurt yourself or someone else? Patient reports desire/thoughts of hurting themselves or someone else. Provider notified. Onset of symptoms is unknown. 23:11 Method Of Arrival: EMS: [facility] bb 23:11 Acuity: CARLOS 2 bb Triage Assessment: 23:15 General: Appears uncomfortable, obese, Behavior is anxious, crying. Pain: Complains of bb pain in chest. Neuro: Level of Consciousness is awake, alert, obeys commands, Oriented to person, place, time, situation. Cardiovascular: Capillary refill < 3 seconds Patient's skin is warm and dry. Respiratory: Respiratory effort is shallow, Respiratory pattern is tachypnea. GI: No signs and/or symptoms were reported involving the gastrointestinal system. Derm: Skin is pink, warm \\T\\ dry. Musculoskeletal: Circulation, motion, and sensation intact. 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 - Social history:: Smoking status: Patient reports the use of cigarette tobacco products, smokes one-half pack cigarettes per day, Patient/guardian denies using alcohol, street drugs. Screenin/11 00:00 Abuse screen: Denies threats or abuse. Nutritional screening: No deficits noted. jb4 Tuberculosis screening: No symptoms or risk factors identified. Fall Risk None identified. Assessment: 00:00 General: Appears in no apparent distress. uncomfortable, Behavior is cooperative, jb4 anxious. Pain: Complains of pain in chest Pain does not radiate. Pain currently is 5 out of 10 on a pain scale. Quality of pain is described as pressure. Neuro: Level of Consciousness is awake, alert, obeys commands, Oriented to person, place, time, situation. Cardiovascular: Patient's skin is warm and dry. Respiratory: Airway is patent Respiratory effort is even, unlabored, Respiratory pattern is regular, symmetrical. GI: No signs and/or symptoms were reported involving the gastrointestinal system. : No signs and/or symptoms were reported regarding the genitourinary system. EENT: No signs and/or symptoms were reported regarding the EENT system. Derm: Skin is intact, Skin is pink, warm \\T\\ dry. Musculoskeletal: Circulation, motion, and sensation intact. Range of motion: intact in all extremities. 01:00 Reassessment: Patient appears in no apparent distress at this time. Patient and/or jb4 family updated on plan of care and expected duration. Pain level reassessed. Patient is alert, oriented x 3, equal unlabored respirations, skin warm/dry/pink. 02:00 Reassessment: Patient appears in no apparent distress at this time. Patient and/or jb4 family updated on plan of care and expected duration. Pain level reassessed. Patient is alert, oriented x 3, equal unlabored respirations, skin warm/dry/pink. 03:00 Reassessment: Pt is resting in bed with eyes closed, respirations are even and jb4 unlabored with no s/s of pain or distress noted. 05:00 Reassessment: Patient appears in no apparent distress at this time. No changes from jb4 previously documented assessment. Patient and/or family updated on plan of care and expected duration. Pain level reassessed. 06:00 Reassessment: Patient appears in no apparent distress at this time. No changes from jb4 previously documented assessment. Patient and/or family updated on plan of care and expected duration. Pain level reassessed. 11:55 Reassessment: Patient appears in no apparent distress at this time. EMS at bedside to tr6 transport pt. pt changed in to her regular pants and shirt along with socks. pts green duffle bag transferred with pt. General: Appears in no apparent distress. Psych: 00:00 [place] Suicide Severity Screening: In the past month, have you wished you were jb4 or wished you could go to sleep and not wake up? Patient responds "yes." "In the past month, have you actually had any thoughts of killing yourself?" Patient responds "yes." "In your lifetime, have you ever done anything, started to do anything, or prepared to do anything to end your life?" Patient responds "yes." Patient reports suicidal intent within 3 past months. Subjective: Patient's mood is sad, hopeless, Delusions are denied, Hallucinations are denied Having thoughts of suicide. Objective: Patient is cooperative, Speech is normal, Affect is flat. Interventions: Removed personal items and placed in bag. Patient placed in hospital gown. Searched person for dangerous items. Safety Checks: Personal items have been removed. Door is open. No visitors are present at this time. Pt denies substance abuse. Commitment: Patient will be a voluntary commitment. Vital Signs: 12/15 23:11 BP 145 / 91; Pulse 133; Resp 22 S; Temp 98.3(O); Pulse Ox 99% on R/A; Weight 99.79 kg em (R); Height 5 ft. 2 in. (157.48 cm) (R); Pain 03/17; 12/16 04:14 Pulse 96; Resp 16; Pulse Ox 98% on 2 lpm NC; jb4 06:04 Pulse 83; Resp 16; Pulse Ox 97% on R/A; jb4 12/15 23:11 Body Mass Index 40.24 (99.79 kg, 157.48 cm) em ED Course: 12/15 22:59 Patient arrived in ED. la1 23:13 Triage completed. bb 23:15 Arm band placed on Patient placed in waiting room, Patient notified of wait time. bb 23:54 Arnie Robbins PA is PHCP. jr8 23:54 Mayank Butler MD is Attending Physician. jr8 12/16 00:32 Patients mother, Susie Romero, can be reached at . mt 01:20 Initial lab(s) drawn, by me, sent to lab. Inserted saline lock: 18 gauge in right jb4 antecubital area, using aseptic technique. Blood collected. 01:25 Herminio Sauer, JAMES is Primary Nurse. jb4 03:14 faxed clinicals to [facility]. mt 03:32 [facility] [place] calling for nurse to nurse report. mt 03:[address] report with Dr. Graf. mt 04:18 Admin approval given by Yuki Wiseman to [facility], Requested mt that we don't send the patient til 8 am due to bed availability. 06:59 faxed patient records to [facility] at the request of the patient. eb 07:20 called and spoke with Lakisha from [facility]/ she has pushed the transfer through to her doctor/ he should be calling us back in 10 to 15 min. 07:58 Attending Physician role handed off by Mayank Butler MD kdr 07:58 Wilfredo Asencio MD is Attending Physician. kdr 08:[address] Osullivan the psychiatrist metal fabrication supervisor for [facility] with Dr. bruce Asencio for patient transfer consultation. 08:32 administrative approval given by Evan Myrick From [facility]/ Dr. Osullivan has accepted the patient in transfer. Administered Medications: 01:38 Not Given (Physician Discretion): Ativan (LORazepam) 1 mg IVP once jr8 01:45 Drug: Valium (diazepam) 10 mg {Note: administered over 10minutes in a 50ml bag on NS.} jb4 Route: IVP; Site: right antecubital; 02:31 Follow up: Response: No adverse reaction jb4 08:01 Drug: Valium (diazepam) 5 mg Route: PO; tr6 Outcome: 01:29 ER care complete, transfer ordered by MD. jr8 11:57 Patient left the ED. tr6 Signatures: Wilfredo Asencio MD MD [facility] Oumar Hodges, RN RN Linnette Trujillo RN RN bb Roszak, Josh, PA PA jr8 Michelet Templeton, INSPECTOR [employer]-C INSPECTOR [employer]ST[employer]-Cla1 Herminio Sauer RN RN jb [facility] Clarissa Harris Naya Patel RN RN tr6 Corrections: (The following items were deleted from the chart) 12/15 23:16 23:11 BP 145 / 91; Pulse 133bpm; Resp 18bpm; Spontaneous; Pulse Ox 99% RA; Temp 9.3F bb Oral; 99.79 kg Reported; Height 5 ft. 2 in. Reported; BMI: 40.2; Pain 10; bb 12/16 01:25 12/15 23:11 BP 145 / 91; Pulse 133bpm; Resp 22bpm; Spontaneous; Pulse Ox 99% RA; Temp em 9.3F Oral; 99.79 kg Reported; Height 5 ft. 2 in. Reported; BMI: 40.2; Pain 03/17; bb
--- NOTE | 2020-12-16 01:29 | EDPHYS ---
Physician Documentation [facility] Name: Charity Hanks Age: 40 yrs Sex: Female : 1980 Arrival Date: 12/15/2020 Time: 22:59 Bed 13 Private MD: ED Physician Wilfredo Asencio HPI: 12/16 01:25 This 40 yrs old Female presents to ER via EMS with complaints of Suicidal jr8 Ideation. 01:25 The patient presents to the emergency department with anxiety, depression, suicide jr8 ideation, and the patient has a plan, to hang oneself. Onset: The symptoms/episode began/occurred gradually, 1 week(s) ago. Past psychiatric history: Prior diagnosis: depression, Psychiatric medications include: Prozac, seroquel, the patient has had a prior suicide gesture, where the patient cut wrists, the patient has a previous inpatient psychiatric history, 3 week(s) ago, at [facility] . Associated signs and symptoms: The patient has no apparent associated signs or symptoms. Severity of symptoms: At their worst the symptoms were moderate in the emergency department the symptoms are unchanged. The patient has experienced similar episodes in the past, a few times. The patient has been recently seen by a physician:. 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 - Social history:: Smoking status: Patient reports the use of cigarette tobacco products, smokes one-half pack cigarettes per day, Patient/guardian denies using alcohol, street drugs. ROS: 12/16 01:25 Eyes: Negative for injury, pain, redness, and discharge, ENT: Negative for injury, jr8 pain, and discharge, Neck: Negative for injury, pain, and swelling, Cardiovascular: Negative for chest pain, palpitations, and edema, Respiratory: Negative for shortness of breath, cough, wheezing, and pleuritic chest pain, Abdomen/GI: Negative for abdominal pain, nausea, vomiting, diarrhea, and constipation, Back: Negative for injury and pain, MS/Extremity: Negative for injury and deformity, Skin: Negative for injury, rash, and discoloration, Neuro: Negative for headache, weakness, numbness, tingling, and seizure. Psych: Positive for anxiety, depression, insomnia, suicidal ideation. Exam: 01:25 Eyes: Pupils equal round and reactive to light, extra-ocular motions intact. Lids and jr8 lashes normal. Conjunctiva and sclera are non-icteric and not injected. Cornea within normal limits. Periorbital areas with no swelling, redness, or edema. ENT: Nares patent. No nasal discharge, no septal abnormalities noted. Tympanic membranes are normal and external auditory canals are clear. Oropharynx with no redness, swelling, or masses, exudates, or evidence of obstruction, uvula midline. Mucous membranes moist. Neck: Trachea midline, no thyromegaly or masses palpated, and no cervical lymphadenopathy. Supple, full range of motion without nuchal rigidity, or vertebral point tenderness. No Meningismus. Cardiovascular: Regular rate and rhythm with a normal S1 and S2. No gallops, murmurs, or rubs. Normal PMI, no JVD. No pulse deficits. Respiratory: Lungs have equal breath sounds bilaterally, clear to auscultation and percussion. No rales, rhonchi or wheezes noted. No increased work of breathing, no retractions or nasal flaring. Abdomen/GI: Soft, non-tender, with normal bowel sounds. No distension or tympany. No guarding or rebound. No evidence of tenderness throughout. Back: No spinal tenderness. No costovertebral tenderness. Full range of motion. Skin: Warm, dry with normal turgor. Normal color with no rashes, no lesions, and no evidence of cellulitis. MS/ Extremity: Pulses equal, no cyanosis. Neurovascular intact. Full, normal range of motion. Neuro: Awake and alert, GCS 15, oriented to person, place, time, and situation. Motor strength 5/5 in all extremities. Sensory grossly intact. 01:25 Psych: Behavior/mood is cooperative, anxious, suicidal, depressed, Affect is calm, Oriented to person, place, time, Patient having thoughts of suicide. Plan for suicide is see hpi Judgement / Insight is normal. Memory is normal. Delusions/hallucinations are not present. Vital Signs: 12/15 23:11 BP 145 / 91; Pulse 133; Resp 22 S; Temp 98.3(O); Pulse Ox 99% on R/A; Weight 99.79 kg em (R); Height 5 ft. 2 in. (157.48 cm) (R); Pain 03/17; 12/16 04:14 Pulse 96; Resp 16; Pulse Ox 98% on 2 lpm NC; jb4 06:04 Pulse 83; Resp 16; Pulse Ox 97% on R/A; jb4 12/15 23:11 Body Mass Index 40.24 (99.79 kg, 157.48 cm) em MDM: 12/15 23:[address] [facility] 12/16 01:27 Data reviewed: vital signs, nurses notes, lab test result(s), EKG, and as a result, I jr8 will discharge patient. Data interpreted: Pulse oximetry: on room air is 99 %. Interpretation: normal. Counseling: I had a detailed discussion with the patient and/or guardian regarding: the historical points, exam findings, and any diagnostic results supporting the discharge/admit diagnosis, lab results, the need to transfer to another facility, [facility] does not immediately have the required specialist. 08:13 ED course: Accepted at [facility]. kdr 12/16 00:05 Order name: Acetaminophen; Complete Time: 12/16 00:05 Order name: Basic Metabolic Panel; Complete Time: 12/16 00:05 Order name: CBC with Diff; Complete Time: 01:36 12/16 00:05 Order name: ETOH Level; Complete Time: :53 12/16 00:05 Order name: Hepatic Function; Complete Time: 12/16 00:05 Order name: PT-INR; Complete Time: 12/16 00:05 Order name: Ptt, Activated; Complete Time: 12/16 00:05 Order name: Salicylate; Complete Time: 11 00:05 Order name: Urine Drug Screen; Complete Time: 04:13 12/16 03:11 Order name: Urine Dipstick-Ancillary; Complete Time: 04:13 [facility] 12/16 05:31 Order name: SARS-COV-2 RT PCR; Complete Time: 08:01 [facility] 12/16 00:05 Order name: EKG; Complete Time: 00:06 12/16 00:05 Order name: EKG - Nurse/Tech; Complete Time: 02:31 12/16 00:05 Order name: IV Saline Lock; Complete Time: :12/16 00:05 Order name: Labs collected and sent; Complete Time: : [facility] 12/16 00:05 Order name: Suicide Screening ([place]); Complete Time: :12/16 00:05 Order name: Urine Dipstick-Ancillary (obtain specimen); Complete Time: 02:57 12/16 00:05 Order name: Urine Test (obtain specimen); Complete Time: 0257 [facility] 12/16 07:07 Order name: Diet Regular; Complete Time: 07:08 dh3 Administered Medications: 01:38 Not Given (Physician Discretion): Ativan (LORazepam) 1 mg IVP once jr8 01:45 Drug: Valium (diazepam) 10 mg {Note: administered over 10minutes in a 50ml bag on NS.} jb4 Route: IVP; Site: right antecubital; 02:31 Follow up: Response: No adverse reaction jb4 08:01 Drug: Valium (diazepam) 5 mg Route: PO; tr6 Disposition: 04:14 Co-signature as Attending Physician, Mayank Butler MD I agree with the assessment and [facility] plan of care. Disposition: 12/16/20 01:29 Transfer ordered to [facility]. Diagnosis are Suicidal ideations, Major depressive disorder, recurrent, Anxiety disorder due to known physiological condition. - Reason for transfer: Higher level of care. - Accepting physician is Dr. Osullivan [facility].. - Condition is Stable. - Problem is new. - Symptoms are unchanged. Signatures: Dispatcher [employer] [facility] Mayank Butler MD MD cha Rittger, Kevin, MD MD kdr Ballard, Brenda, RN RN bb Roszak, Josh, PA PA jr8 Herminio Sauer, RN RN jb4 Clarissa Harris Tiffany, RN RN tr6 Corrections: (The following items were deleted from the chart) 04:37 04:16 CORONAVIRUS+ ordered. EDMS EDMS 08:35 01:29 12/16/2020 01:29 Transfer ordered to Psych Facility. Diagnosis is Suicidal eb ideations; Major depressive disorder, recurrent; Anxiety disorder due to known physiological condition. Reason for transfer: Higher level of care. Accepting physician is [facility]. Condition is Stable. Problem is new. Symptoms are unchanged. jr8 11:57 08:35 12/16/2020 01:29 Transfer ordered to Psych Facility. Diagnosis is Suicidal tr6 ideations; Major depressive disorder, recurrent; Anxiety disorder due to known physiological condition. Reason for transfer: Higher level of care. Accepting physician is Dr. Osullivan [facility].. Condition is Stable. Problem is new. Symptoms are unchanged. eb
[2020-12-16 01:41] LABS: Protime INR 0.99
[2020-12-16 01:47] LABS: ALT/SGPT 46 U/L (12-78); AST/SGOT 12 U/L (15-37); Albumin 3.6 g/dL (3.4-5.0); Alkaline Phosphatase 106 U/L (45-117); BUN Blood Urea Nitrogen 21 mg/dL (7-18); Bicarbonate 21 mmol/L (21-32); Bilirubin Direct < 0.1 mg/dL (0-0.2); Bilirubin Total 0.2 mg/dL (0.2-1.0); Glucose Level 104 mg/dL (74-106); Potassium 4.2 mmol/L (3.5-5.1); Protein, Total 7.8 g/dL (6.4-8.2); Sodium Level 139 mmol/L (136-145)
[2020-12-16] MEDS ORDERED: DIAZEPAM 10 MG/2 ML INJ SYRINGE ONE (02:00)
[2020-12-16] MEDS ORDERED: NA CHLORIDE 0.9% 50 ML ONE (02:00)
[2020-12-16 02:50] LABS: Barbiturates NEGATIVE (NEGATIVE); Benzodiazepines POSITIVE (NEGATIVE); Cocaine NEGATIVE (NEGATIVE); METHAMPHETAM NEGATIVE (NEGATIVE); Methadone NEGATIVE (NEGATIVE); Opiates NEGATIVE (NEGATIVE); Phencyclidine NEGATIVE (NEGATIVE); THC Cannibis NEGATIVE (NEGATIVE)
[2020-12-16 03:12] LABS: Urine Blood Negative (Negative); Urine Glucose Negative (Negative); Urine Protein Negative (Negative)
[2020-12-16] MEDS ORDERED: DIAZEPAM 5 MG TABLET ONE (08:19)
[2020-12-16 12:11] VITALS: BP 145/91; TEMP 98.3
[2020-12-16 12:14] VITALS: O2SAT 97
== END 2020-12-16 11:57 ==
LOC: ER 21:45
DX: R45.851 Suicidal ideations (principal); F33.9 Major depressive disorder, recurrent, unspecified; F06.4 Anxiety disorder due to known physiological condition; F17.210 Nicotine dependence, cigarettes, uncomplicated; I10 Essential (primary) hypertension; G47.00 Insomnia, unspecified; F43.10 Post-traumatic stress disorder, unspecified; Z20.822 Contact with and (suspected) exposure to COVID-19
CPT/HCPCS: 93005; 85025; 80048; 36415; 80320; 80329 ×2; 85610; 80076; 80307 ×8; 85730; 81003; 96374; 99285; U0003; J3360

== ENCOUNTER 2021-01-09 12:25 | Emergency (ER) | payer BC ==
--- NOTE | 2021-01-09 16:02 | RAD REPORT ---
EXAM DESCRIPTION: RAD - Chest Single View - 01/09/2021 3:52 pm CLINICAL HISTORY: CHEST PAIN Chest pain. COMPARISON: Chest Single View dated 12/02/2020; Chest Single View dated 12/01/2020; Chest Single View dated 11/03/2020; Chest Single View dated 10/11/2020 FINDINGS: Portable technique limits examination quality. The lungs are grossly clear. The heart is normal in size. No displaced fractures. IMPRESSION: No acute intrathoracic process suspected.
[2021-01-09 16:06] LABS: Absolute Lymphocytes (CBC) 2.8 K/uL (0.7-4.9); Basophils % 0.6 % (0-1.3); Lymphocytes % 24.2 % (15.3-44.8); MPV 7.7 fL (7.6-11.3); RBC Red Blood Cell Count 5.27 M/uL (3.86-4.86)
[2021-01-09 16:19] LABS: Protime INR 1.02
[2021-01-09 16:26] LABS: ALT/SGPT 32 U/L (12-78); AST/SGOT 16 U/L (15-37); Albumin 3.8 g/dL (3.4-5.0); Alkaline Phosphatase 92 U/L (45-117); BUN Blood Urea Nitrogen 14 mg/dL (7-18); Bicarbonate 22 mmol/L (21-32); Bilirubin Direct < 0.1 mg/dL (0-0.2); Bilirubin Total 0.2 mg/dL (0.2-1.0); Glucose Level 88 mg/dL (74-106); Lipase 84 U/L (73-393); Magnesium 2.1 mg/dL (1.8-2.4); NT PRO-BNP 7 pg/mL (<125); Protein, Total 8.4 g/dL (6.4-8.2); Sodium Level 137 mmol/L (136-145); Troponin (Emerg Dept Use Only) < 0.02 ng/mL (0.0-0.045)
[2021-01-09] MEDS ORDERED: MORPHINE 4 MG/ML SYR ONE (16:59)
[2021-01-09] MEDS ORDERED: ONDANSETRON 4 MG/2 ML VIAL ONE (16:59)
[2021-01-09] MEDS ORDERED: NA CHLORIDE 0.9% 1,000 ML ONE (17:28)
[2021-01-09] MEDS ORDERED: LORAZEPAM 1 MG TABLET ONE (18:07)
--- NOTE | 2021-01-09 19:02 | EDPHYS ---
Physician Documentation [facility] Name: Charity Hanks Age: 40 yrs Sex: Female : 1980 Arrival Date: 01/09/2021 Time: 12:28 Bed 20 Private MD: ED Physician Mayank Butler HPI: 01/09 15:20 This 40 yrs old Female presents to ER via Ambulatory with complaints of Sore pm1 Throat, Chest Pain, Back Pain, Abdominal Pain, Arm Pain. 15:20 The patient presents with sore throat. The patient describes throat pain as constant, pm1 scratchy. Onset: The symptoms/episode began/occurred today. Severity of symptoms: in the emergency department the symptoms are unchanged. Modifying factors: The symptoms are alleviated by nothing, the symptoms are aggravated by foods, swallowing, Patient's oral intake status: good unaware of sick contact. Associated signs and symptoms: Pertinent positives: chest pain, nausea, RUQ pain, Pertinent negatives diarrhea, fever, vomiting. The patient has experienced similar episodes in the past, multiple times, seen in the ER here for similar complaints on multiple occasions. The patient has not recently seen a physician. 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 - Social history:: Smoking status: Patient reports the use of cigarette tobacco products, smokes one-half pack cigarettes per day. ROS: 15:20 Constitutional: Negative for fever, chills, and weight loss, Eyes: Negative for injury, pm1 pain, redness, and discharge. 15:20 Neck: Negative for injury, pain, and swelling. 15:20 Respiratory: Negative for shortness of breath, cough, wheezing, and pleuritic chest pain. 15:20 Back: Negative for injury and pain, MS/Extremity: Negative for injury and deformity, Skin: Negative for injury, rash, and discoloration, Neuro: Negative for headache, weakness, numbness, tingling, and seizure. 15:20 ENT: Positive for sore throat, Negative for ear pain, difficulty swallowing, difficulty handling secretions, hoarseness. 15:20 Cardiovascular: Positive for chest pain, Negative for edema. 15:20 Abdomen/GI: Positive for abdominal pain, nausea, of the right upper quadrant, Negative for vomiting, diarrhea. 15:20 All other systems are negative. Exam: 15:20 Constitutional: This is a well developed, well nourished patient who is awake, alert, pm1 and in no acute distress. Head/Face: Normocephalic, atraumatic. 15:20 Chest/axilla: Normal chest wall appearance and motion. Nontender with no deformity. No lesions are appreciated. 15:20 Back: No spinal tenderness. No costovertebral tenderness. Full range of motion. Skin: Warm, dry with normal turgor. Normal color with no rashes, no lesions, and no evidence of cellulitis. 15:20 MS/ Extremity: Pulses equal, no cyanosis. Neurovascular intact. Full, normal range of motion. 15:20 Eyes: Exam is negative for acute changes, Extraocular movements: no acute changes, Conjunctiva: normal, no injection. 15:20 ENT: Exam is negative for acute changes, External ear(s): are unremarkable, Ear canal(s): are normal, TM's: no acute changes, Mouth: Lips: normal, Oral mucosa: normal, pink and intact, moist, Posterior pharynx: is normal, airway is patent, no acute changes. 15:20 Cardiovascular: Exam negative for acute changes, Rate: normal, Rhythm: regular, Pulses: no pulse deficits are appreciated, Heart sounds: normal, normal S1and S2. 15:20 Respiratory: Exam negative for acute changes, respiratory distress, shortness of breath, Breath sounds: are clear throughout. 15:20 Abdomen/GI: Inspection: obese Palpation: abdomen is soft and non-tender, in all quadrants. 15:20 Neuro: Exam negative for acute changes, Orientation: is normal, Mentation: is normal, Motor: is normal, moves all fours. Vital Signs: 13:25 BP 131 / 92; Pulse 88; Resp 17; Temp 98; Pulse Ox 100% on R/A; Weight 101.15 kg; Height jl7 5 ft. 2 in. (157.48 cm); Pain 10/10; 16:09 BP 132 / 88; Pulse 96; Resp 16; Pulse Ox 100% on R/A; vg1 17:09 BP 125 / 90; Pulse 95; Resp 18; Pulse Ox 99% on R/A; vg1 18:00 BP 111 / 75; Pulse 96; Resp 16; Pulse Ox 98% on R/A; vg1 13:25 Body Mass Index 40.79 (101.15 kg, 157.48 cm) jl7 MDM: 15:25 Patient medically screened. [facility] 19:01 Data reviewed: vital signs. Data interpreted: Pulse oximetry: on room air is 99 %. pm1 Interpretation: normal. 19:01 Counseling: I had a detailed discussion with the patient and/or guardian regarding: the pm1 historical points, exam findings, and any diagnostic results supporting the discharge/admit diagnosis, lab results, radiology results, the need for outpatient follow up, to return to the emergency department if symptoms worsen or persist or if there are any questions or concerns that arise at home. 01/09 15:19 Order name: Basic Metabolic Panel pm1 01/09 15:19 Order name: CBC with Diff pm1 01/09 15:19 Order name: LFT's pm1 01/09 15:19 Order name: Magnesium; Complete Time: 16:27 pm1 01/09 15:19 Order name: NT PRO-BNP; Complete Time: 16:27 pm1 01/09 15:19 Order name: PT-INR; Complete Time: 17:02 pm1 01/09 15:19 Order name: Troponin (emerg Dept Use Only); Complete Time: 16:27 pm1 01/09 15:19 Order name: XRAY Chest (1 view); Complete Time: 16:07 pm1 01/09 15:19 Order name: Lipase; Complete Time: 16:27 pm1 01/09 15:20 Order name: Basic Metabolic Panel; Complete Time: 16:27 EDMS 01/09 15:20 Order name: CBC with Automated Diff; Complete Time: 16:27 EDMS 01/09 15:20 Order name: Liver (Hepatic) Function; Complete Time: 16:27 EDMS 01/09 17:03 Order name: Strep; Complete Time: 19:01 pm1 01/09 15:19 Order name: EKG; Complete Time: 15:21 pm1 01/09 15:19 Order name: Cardiac monitoring; Complete Time: 15:37 pm1 01/09 15:19 Order name: EKG - Nurse/Tech; Complete Time: 15:37 pm1 01/09 15:19 Order name: IV Saline Lock; Complete Time: 16:04 pm1 01/09 15:19 Order name: Labs collected and sent; Complete Time: 16:04 pm1 01/09 15:19 Order name: O2 Per Protocol; Complete Time: 15:22 pm1 01/09 15:19 Order name: O2 Sat Monitoring; Complete Time: 15:22 pm1 Administered Medications: 16:38 Drug: Zofran (Ondansetron) 4 mg Route: IVP; Site: left forearm; vg1 19:13 Follow up: Response: No adverse reaction; Nausea is decreased vg1 16:40 Drug: morphine 4 mg {Note: rass 0.} Route: IVP; Site: left forearm; vg1 19:13 Follow up: Response: No adverse reaction; Pain is decreased vg1 17:09 Drug: NS 0.9% 1000 ml Route: IV; Rate: 1000 ml; Site: left forearm; vg1 19:13 Follow up: IV Status: Completed infusion; IV Intake: 1000ml vg1 17:49 Drug: Ativan (LORazepam) 1 mg Route: PO; vg1 19:13 Follow up: Response: No adverse reaction vg1 Disposition: 01/10 18:47 Co-signature as Attending Physician, Mayank Butler MD I agree with the assessment and madeleine plan of care. Disposition Summary: 01/09/21 19:02 Discharge Ordered Location: Home pm1 Problem: new pm1 Symptoms: have improved pm1 Condition: Stable pm1 Diagnosis - Chest pain, unspecified pm1 - Acute pharyngitis, unspecified pm1 Followup: pm1 - With: Emergency Department - When: As needed - Reason: Worsening of condition Followup: pm1 - With: Private Physician - When: 2 - 3 days - Reason: Recheck today's complaints, Continuance of care, Re-evaluation by your physician Discharge Instructions: - Discharge Summary Sheet pm1 - Nonspecific Chest Pain, Adult pm1 - Pharyngitis pm1 Forms: - Medication Reconciliation Form pm1 - Thank You Letter pm1 - Antibiotic Education pm1 - Prescription Opioid Use pm1 Signatures: Dispatcher [employer] EDMayank Buck MD MD cha Marinas, Patrick, YARN SKEINS EXAMINER YARN SKEINS EXAMINER pm1 Hector Rosen RN RN amanda7 Rae Shah RN RN vg1
--- NOTE | 2021-01-09 19:02 | ER ---
Nurse's Notes [facility] Name: Charity Hanks Age: 40 yrs Sex: Female : 1980 Arrival Date: 01/09/2021 Time: 12:28 Bed 20 Private MD: Diagnosis: Chest pain, unspecified;Acute pharyngitis, unspecified Presentation: 01/09 13:25 Chief complaint: Patient states: Sore throat, RUQ abdominal pain, constant left side jl7 chest pain that radiate to left arm and shoulder blades x 1 day. Coronavirus screen: Client denies travel out of the [place] in the last 14 days. sore throat, Client presents with at least one sign or symptom that may indicate coronavirus-19. Standard/surgical mask placed on the client. Provider contacted for isolation considerations. Ebola Screen: No symptoms or risks identified at this time. Initial Sepsis Screen: Does the patient meet any 2 criteria? No. Patient's initial sepsis screen is negative. Does the patient have a suspected source of infection? No. Patient's initial sepsis screen is negative. Risk Assessment: Do you want to hurt yourself or someone else? Patient reports no desire to harm self or others. Onset of symptoms was January 08, 2021. 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 - Social history:: Smoking status: Patient reports the use of cigarette tobacco products, smokes one-half pack cigarettes per day. Screenin:08 Abuse screen: Denies threats or abuse. Nutritional screening: No deficits noted. vg1 Tuberculosis screening: No symptoms or risk factors identified. Fall Risk No fall in past 12 months (0 pts). No secondary diagnosis (0 pts). IV access (20 points). Ambulatory Aid- None/Bed Rest/Nurse Assist (0 pts). Gait- Normal/Bed Rest/Wheelchair (0 pts) Mental Status- Oriented to own ability (0 pts). Total Browne Fall Scale indicates No Risk (0-24 pts). Assessment: 15:30 General: Appears in no apparent distress. comfortable, Behavior is calm, cooperative. vg1 Pain: Complains of pain in right upper quadrant, right lower quadrant and left lower quadrant and upper left side of chest Pain radiates to left arm Pain currently is 10 out of 10 on a pain scale. Neuro: Level of Consciousness is awake, alert, obeys commands, Oriented to person, place, time, situation. Cardiovascular: Patient's skin is warm and dry. Respiratory: Airway is patent Respiratory effort is even, unlabored, Breath sounds are clear bilaterally. GI: Abdomen is round non-distended, obese, Reports nausea. : No signs and/or symptoms were reported regarding the genitourinary system. EENT: Throat is pink. Derm: Skin is intact, is healthy with good turgor. Musculoskeletal: Circulation, motion, and sensation intact. 15:30 Reassessment: Pt c/o throat and Left ear pain. vg1 17:09 Reassessment: Patient appears in no apparent distress at this time. No changes from vg1 previously documented assessment. Patient and/or family updated on plan of care and expected duration. Pain level reassessed. Patient is alert, oriented x 3, equal unlabored respirations, skin warm/dry/pink. 19:06 Reassessment: Patient and/or family updated on plan of care and expected duration. Pain vg1 level reassessed. Patient is alert, oriented x 3, equal unlabored respirations, skin warm/dry/pink. Pt left prior to d/c; d/c IV on own. Vital Signs: 13:25 BP 131 / 92; Pulse 88; Resp 17; Temp 98; Pulse Ox 100% on R/A; Weight 101.15 kg; Height jl7 5 ft. 2 in. (157.48 cm); Pain 10/10; 16:09 BP 132 / 88; Pulse 96; Resp 16; Pulse Ox 100% on R/A; vg1 17:09 BP 125 / 90; Pulse 95; Resp 18; Pulse Ox 99% on R/A; vg1 18:00 BP 111 / 75; Pulse 96; Resp 16; Pulse Ox 98% on R/A; vg1 13:25 Body Mass Index 40.79 (101.15 kg, 157.48 cm) jl7 ED Course: 12:28 Patient arrived in ED. as 13:29 Triage completed. jl7 13:29 Arm band placed on right wrist. Patient placed in waiting room, Patient notified of jl7 wait time. 14:29 EKG completed in triage. Results shown to . jl7 15:19 Brian Ashford NP is PHCP. pm1 15:19 Mayank Butler MD is Attending Physician. pm1 15:21 Rae Shah, RN is Primary Nurse. vg1 15:52 XRAY Chest (1 view) In Process Unspecified. EDMS 16:04 Initial lab(s) drawn, by me, sent to lab. Inserted saline lock: 22 gauge in left vg1 forearm, using aseptic technique. Blood collected. 16:08 Patient has correct armband on for positive identification. Bed in low position. Call vg1 light in reach. Side rails up X 1. 19:12 No provider procedures requiring assistance completed. IV was d/c by patient. vg1 Administered Medications: 16:38 Drug: Zofran (Ondansetron) 4 mg Route: IVP; Site: left forearm; vg1 19:13 Follow up: Response: No adverse reaction; Nausea is decreased vg1 16:40 Drug: morphine 4 mg {Note: rass 0.} Route: IVP; Site: left forearm; vg1 19:13 Follow up: Response: No adverse reaction; Pain is decreased vg1 17:09 Drug: NS 0.9% 1000 ml Route: IV; Rate: 1000 ml; Site: left forearm; vg1 19:13 Follow up: IV Status: Completed infusion; IV Intake: 1000ml vg1 17:49 Drug: Ativan (LORazepam) 1 mg Route: PO; vg1 19:13 Follow up: Response: No adverse reaction vg1 Intake: 19:13 IV: 1000ml; Total: 1000ml. vg1 Outcome: 19:02 Discharge ordered by . pm1 19:12 Discharged to Pt left before was given disposition from provider vg1 19:12 Condition: stable 19:13 Patient left the ED. vg1 Signatures: Dispatcher [employer] EDMS Carina Heard as Brian Ashford, CHICHO CONTACT AGENT pm1 Hector Rosen RN RN jl7 Rae Shah, JAMES RN vg1
[2021-01-09 19:21] VITALS: TEMP 98
[2021-01-09 19:26] VITALS: BP 111/75; O2SAT 98
--- NOTE | 2021-01-10 16:12 | EKG ---
Test Date: 2021-01-09 Test Time: 13:53:35 [employer] Purchasing Agent: AB MEASUREMENT RESULTS: Intervals: Rate: 111 FL: 146 QRSD: 74 QT: 324 QTc: 440 Almond: P: 45 FL: 146 QRS: 43 T: 31 INTERPRETIVE STATEMENTS: Sinus tachycardia Right atrial enlargement Borderline ECG Compared to ECG 12/16/2020 01:36:41 Sinus rhythm no longer present Electronically Signed On 01-10-21 16:08:47 CDT by Edgar Bazzi
== END 2021-01-09 19:13 | disposition home or self-care (01) ==
LOC: ER 12:25
DX: R07.9 Chest pain, unspecified (principal); F17.210 Nicotine dependence, cigarettes, uncomplicated; I10 Essential (primary) hypertension
CPT/HCPCS: 96361; 93005; 87070; 85025; 80048; 36415; 83735; 85610; 80076; 87081; 84484; 83690; 83880; 71045; 96375; 96374; 99284; J7030; J2405

== ENCOUNTER 2021-01-17 14:35 | Emergency (ER) | payer BC ==
[2021-01-17 16:20] LABS: Urine Blood 2+ (Negative); Urine Glucose Negative (Negative); Urine Protein Negative (Negative); Urine pH 5.5 (5.0-7.0)
[2021-01-17 16:26] LABS: Absolute Lymphocytes (CBC) 2.4 K/uL (0.7-4.9); Basophils % 0.7 % (0-1.3); Hematocrit 42.3 % (36.0-45.0); Lymphocytes % 17.4 % (15.3-44.8); MPV 7.8 fL (7.6-11.3); RBC Red Blood Cell Count 5.15 M/uL (3.86-4.86)
[2021-01-17 16:33] LABS: Protime INR 1.05
[2021-01-17 16:34] LABS: Barbiturates NEGATIVE (NEGATIVE); Benzodiazepines POSITIVE (NEGATIVE); Cocaine NEGATIVE (NEGATIVE); METHAMPHETAM NEGATIVE (NEGATIVE); Methadone NEGATIVE (NEGATIVE); Opiates NEGATIVE (NEGATIVE); Phencyclidine NEGATIVE (NEGATIVE); THC Cannibis NEGATIVE (NEGATIVE)
[2021-01-17 16:46] LABS: ALT/SGPT 32 U/L (12-78); AST/SGOT 10 U/L (15-37); Albumin 3.6 g/dL (3.4-5.0); Alkaline Phosphatase 121 U/L (45-117); BUN Blood Urea Nitrogen 11 mg/dL (7-18); Bicarbonate 22 mmol/L (21-32); Bilirubin Direct < 0.1 mg/dL (0-0.2); Bilirubin Total 0.2 mg/dL (0.2-1.0); Glucose Level 92 mg/dL (74-106); Potassium 3.9 mmol/L (3.5-5.1); Protein, Total 7.8 g/dL (6.4-8.2); Sodium Level 140 mmol/L (136-145)
--- NOTE | 2021-01-17 18:02 | EDPHYS ---
Physician Documentation [facility] Name: Charity Hanks Age: 40 yrs Sex: Female : 1980 Arrival Date: 01/17/2021 Time: 14:37 Bed 19 Private MD: Aiden Rosen ED Physician Carmine Jackson HPI: 01/17 15:35 This 40 yrs old Female presents to ER via Ambulatory with complaints of Psych pm1 Problem. 15:35 The patient presents to the emergency department with suicide ideation, but the patient pm1 has no formulated plan. Onset: The symptoms/episode began/occurred today. Past psychiatric history: Prior diagnosis: depression, anxiety, Psychiatric medications include: Seroquel, trazodone, zoloft, the patient has a previous inpatient psychiatric history, 12/16 to 01/04, at [facility] . Associated signs and symptoms: Pertinent positives; anxiety, Pertinent negatives: chest pain, headache, homicidal ideation, shortness of breath. Severity of symptoms: in the emergency department the symptoms are worse. The patient has experienced similar episodes in the past, several times. 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 - Social history:: Smoking status: Patient reports the use of cigarette tobacco products, smokes one-half pack cigarettes per day. ROS: 15:35 Constitutional: Negative for fever, chills, and weight loss, Cardiovascular: Negative pm1 for chest pain, palpitations, and edema, Respiratory: Negative for shortness of breath, cough, wheezing, and pleuritic chest pain, Abdomen/GI: Negative for abdominal pain, nausea, vomiting, diarrhea, and constipation, MS/Extremity: Negative for injury and deformity, Skin: Negative for injury, rash, and discoloration, Neuro: Negative for headache, weakness, numbness, tingling, and seizure. 15:35 Psych: Positive for anxiety, suicidal ideation, Negative for auditory hallucinations, visual hallucinations, homicidal ideation. Exam: 15:35 Constitutional: This is a well developed, well nourished patient who is awake, alert, pm1 and in no acute distress. Head/Face: Normocephalic, atraumatic. 15:35 Back: No spinal tenderness. No costovertebral tenderness. Full range of motion. Skin: Warm, dry with normal turgor. Normal color with no rashes, no lesions, and no evidence of cellulitis. MS/ Extremity: Pulses equal, no cyanosis. Neurovascular intact. Full, normal range of motion. 15:35 Eyes: Exam is negative for acute changes, Extraocular movements: intact throughout, Conjunctiva: normal, no injection. 15:35 ENT: Exam is negative for acute changes, Mouth: Lips: normal, Oral mucosa: normal, pink and intact, moist. 15:35 Cardiovascular: Exam negative for acute changes, Rate: normal, Rhythm: regular, Pulses: no pulse deficits are appreciated. 15:35 Respiratory: Exam negative for acute changes, respiratory distress, shortness of breath, Breath sounds: are clear throughout. 15:35 Abdomen/GI: Exam negative for acute changes, Inspection: abdomen appears normal, Palpation: abdomen is soft and non-tender, in all quadrants. 15:35 Neuro: Exam negative for acute changes, Orientation: is normal, Mentation: is normal, Motor: is normal, moves all fours, Sensation: is normal, no obvious gross deficits, Gait: is steady, at a normal pace, without difficulty. 15:35 Psych: Behavior/mood is anxious, Affect is animated, Oriented to person, place, time, Patient having thoughts of suicide. Denies suicidal plan. Delusions/hallucinations are not present. Vital Signs: 14:50 BP 132 / 78; Pulse 82; Resp 16; Temp 97.8; Pulse Ox 100% on R/A; Weight 102.51 kg; hb Height 5 ft. 2 in. (157.48 cm); Pain 9/10; 14:50 Body Mass Index 41.34 (102.51 kg, 157.48 cm) hb MDM: 15:30 Patient medically screened. pm1 18:00 Data reviewed: vital signs. Data interpreted: Pulse oximetry: on room air is 100 %. pm1 Interpretation: normal. 18:00 Counseling: I had a detailed discussion with the patient and/or guardian regarding: the pm1 historical points, exam findings, and any diagnostic results supporting the discharge/admit diagnosis, lab results, the need to transfer to another facility, [facility] does not immediately have the required specialist. 18:58 Physician consultation: MD Tafoya was contacted at 18:58, regarding regarding transfer, pm1 patient's condition, and will see patient. 01/17 15:33 Order name: Acetaminophen; Complete Time: 17:25 pm01/17 15:33 Order name: Basic Metabolic Panel; Complete Time: 17:25 pm01/17 15:33 Order name: CBC with Diff; Complete Time: 16:45 pm01/17 15:33 Order name: ETOH Level; Complete Time: 17:25 pm01/17 15:33 Order name: Hepatic Function; Complete Time: 17:25 pm01/17 15:33 Order name: PT-INR; Complete Time: 16:45 pm01/17 15:33 Order name: Ptt, Activated; Complete Time: 16:45 pm01/17 15:33 Order name: Salicylate; Complete Time: 17:25 pm01/17 15:33 Order name: Urine Drug Screen; Complete Time: 16:45 pm01/17 16:20 Order name: Urine Dipstick-Ancillary; Complete Time: 16:24 EDMS 01/17 18:09 Order name: SARS-COV-2 RT PCR; Complete Time: 18:15 EDMS 01/17 15:33 Order name: EKG; Complete Time: 15:34 pm01/17 15:33 Order name: EKG - Nurse/Tech; Complete Time: 16:20 pm01/17 15:33 Order name: IV Saline Lock; Complete Time: 16:21 pm01/17 15:33 Order name: Labs collected and sent; Complete Time: 16:21 pm01/17 15:33 Order name: Suicide Precautions; Complete Time: 16:21 pm01/17 15:33 Order name: Suicide Screening ([place]); Complete Time: 16:21 pm01/17 15:33 Order name: Urine Dipstick-Ancillary (obtain specimen); Complete Time: 16:21 pm1 01/17 15:33 Order name: Urine Test (obtain specimen); Complete Time: 16:21 pm1 01/17 16:23 Order name: Diet Regular; Complete Time: 16:24 tr6 Administered Medications: 19:40 Drug: Ativan (LORazepam) 1 mg Route: PO; bs2 22:26 Follow up: Response: No adverse reaction bs2 22:51 Drug: Ativan (LORazepam) 0.5 mg Route: IVP; Site: left wrist; ld1 Disposition Summary: 01/17/21 18:01 Transfer Ordered Transfer Location: Psych Facility pm1 Reason: Specialty pm1 Condition: Stable pm1 Problem: new pm1 Symptoms: are unchanged pm1 Accepting Physician: (01/17/21 22:52) ld1 Diagnosis - Suicidal ideations pm1 Forms: - Medication Reconciliation Form pm1 - SBAR form pm1 Signatures: Dispatcher [employer] EDMI Brian Ashford, FUEL CELL TEST ENGINEER FUEL CELL TEST ENGINEER pm1 Regina Gibson RN RN Ayah Tadeo RN RN ld1 Buffy Lainez RN RN bs2 Corrections: (The following items were deleted from the chart) 17:02 16:45 CORONAVIRUS+MR.LAB.BRZ ordered. EDMI EDMS 22:52 18:01 pm1 ld1
--- NOTE | 2021-01-17 18:02 | ER ---
Nurse's Notes [facility] Name: Charity Hanks Age: 40 yrs Sex: Female : 1980 Arrival Date: 01/17/2021 Time: 14:37 Bed 19 Private MD: Aiden Rosen Diagnosis: Suicidal ideations Presentation: 01/17 14:50 Chief complaint: "I am feeling depressed and having thoughts that I am worthless and hb would be better off ." Denies previous attempt/specific plan. recently inpatient at [facility], discharged 01/04. Denies alcohol/street drugs. Takes seroquel and trazodone. Coronavirus screen: At this time, the client does not indicate any symptoms associated with coronavirus-19. Ebola Screen: No symptoms or risks identified at this time. Initial Sepsis Screen: Does the patient meet any 2 criteria? No. Patient's initial sepsis screen is negative. Does the patient have a suspected source of infection? No. Patient's initial sepsis screen is negative. Risk Assessment: Do you want to hurt yourself or someone else? Patient reports no desire to harm self or others. Onset of symptoms was January 17, 2021. 14:50 Method Of Arrival: Ambulatory hb 14:50 Acuity: CARLOS 2 hb Triage Assessment: 15:30 General: Appears in no apparent distress. Behavior is calm, cooperative, appropriate tr6 for age. Pain: Denies pain. EENT: No deficits noted. Neuro: Level of Consciousness is awake, alert, obeys commands. Cardiovascular: No deficits noted. Respiratory: No deficits noted. GI: No deficits noted. : No deficits noted. Derm: No deficits noted. Musculoskeletal: No deficits noted. 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 - Social history:: Smoking status: Patient reports the use of cigarette tobacco products, smokes one-half pack cigarettes per day. Screenin:52 Abuse screen: Denies threats or abuse. Denies injuries from another. Nutritional tr6 screening: No deficits noted. Tuberculosis screening: No symptoms or risk factors identified. Fall Risk None identified. Assessment: 18:28 Reassessment: Nurse to nurse report given to clare RAMIREZ of [facility]. pending tr6 to report. will continue to monitor. 18:58 Reassessment: nurse to nurse report given to jose of [facility]. pending MD to tr6 MD report. will continue to monitor. Reassessment:. Psych: 17:52 [place] Suicide Severity Screening: In the past month, have you wished you were tr6 or wished you could go to sleep and not wake up? Patient responds "yes." "In the past month, have you actually had any thoughts of killing yourself?" Patient responds "no." "In your lifetime, have you ever done anything, started to do anything, or prepared to do anything to end your life?" Patient responds "yes.". Subjective: Patient's mood is hopeless, Delusions are denied, Hallucinations are denied Having thoughts of suicide. Denies suicidal plan. Objective: Patient is cooperative, Speech is normal. Interventions: Urine collected and sent for urine drug test. Safety Checks: Commitment: Patient will be a voluntary commitment. 22:52 Pt denies substance abuse. ld1 Vital Signs: 14:50 BP 132 / 78; Pulse 82; Resp 16; Temp 97.8; Pulse Ox 100% on R/A; Weight 102.51 kg; hb Height 5 ft. 2 in. (157.48 cm); Pain 9/10; 14:50 Body Mass Index 41.34 (102.51 kg, 157.48 cm) hb ED Course: 14:37 Patient arrived in ED. am2 14:37 Aiden Rosen MD is Private Physician. am2 14:52 Triage completed. hb 14:52 Arm band placed on. hb 15:29 Naya Patel RN is Primary Nurse. tr6 15:30 No apparent distress. Resting quietly. tr6 15:30 Brian Ashford NP is PHCP. pm1 15:30 Carmine Jackson MD is Attending Physician. pm1 15:30 No provider procedures requiring assistance completed. tr6 16:20 EKG done, by ED staff, reviewed by Brian Ashford NP. 3 16:21 Inserted saline lock: 18 gauge in left wrist, using aseptic technique. Blood collected. tr6 17:51 Diet: Patient given a regular meal tray. Tolerated well. tr6 17:52 Patient has correct armband on for positive identification. Placed in gown. Bed in low tr6 position. Call light in reach. Side rails up X2. Door closed. Noise minimized. Visitors limited. Lights dimmed. Moved to private room. 18:07 faxed patients clinicals to [facility], [facility], [facility], [facility], [facility], [facility], and [facility]. 18:21 Clare with [facility] called for Nurse to Nurse. sc 18:55 Dr Tafoya with [facility] called for Dr to Dr orellana with Brian Ashford. sc 19:08 administrative approval given by Vel Valverde/ patient has been accepted to [address]/ Dr. Tafoya accepted the patient in transfer. 19:51 Primary Nurse role handed off by Naya Patel RN bs2 19:51 Buffy Lainez RN is Primary Nurse. bs2 22:52 IV discontinued, intact, bleeding controlled, No redness/swelling at site. ld1 Administered Medications: 19:40 Drug: Ativan (LORazepam) 1 mg Route: PO; bs2 22:26 Follow up: Response: No adverse reaction bs2 22:51 Drug: Ativan (LORazepam) 0.5 mg Route: IVP; Site: left wrist; ld1 Outcome: 18:01 ER care complete, transfer ordered by MD. pm1 22:51 Transferred by ground EMS ld1 22:51 Condition: stable 22:51 Instructed on the need for transfer. 22:52 Patient left the ED. ld1 Signatures: Brian Ashford NP ROLLER SKATE REPAIRER pm1 Regina Gibson RN RN Becky Edgar Dianna Araiza sc Briseida Emery 3 Yael Moon 2 Ayah Tadeo RN RN ld1 Naya Patel, RN RN tr6 Buffy Lainez, RN RN bs2 Corrections: (The following items were deleted from the chart) 18:59 18:28 Reassessment: Nurse to nurse report given to clare RAMIREZ of [facility]. tr6 pending MD to MD report tr6
[2021-01-17] MEDS ORDERED: LORAZEPAM 1 MG TABLET ONE (20:00)
[2021-01-17 23:13] VITALS: BP 132/78; TEMP 97.8; O2SAT 100
--- NOTE | 2021-01-18 12:41 | EKG ---
Test Date: 2021-01-17 Test Time: 16:05:53 Bookkeeper: PALOMO MEASUREMENT RESULTS: Intervals: Rate: 94 MN: 142 QRSD: 78 QT: 358 QTc: 447 [place]: P: 33 MN: 142 QRS: -19 T: 25 INTERPRETIVE STATEMENTS: Normal sinus rhythm Biatrial enlargement Abnormal ECG Compared to ECG 01/09/2021 13:53:35 Sinus tachycardia no longer present Electronically Signed On 01-18-21 12:37:42 CDT by Edgar Bazzi
== END 2021-01-17 22:52 ==
LOC: ER 14:35
DX: R45.851 Suicidal ideations (principal); F41.8 Other specified anxiety disorders; F17.210 Nicotine dependence, cigarettes, uncomplicated; Z20.822 Contact with and (suspected) exposure to COVID-19
CPT/HCPCS: 93005; 85025; 80048; 36415; 80320; 80329 ×2; 85610; 80076; 85730; 81003; 80307; U0003; 96374; 99285

== ENCOUNTER 2021-02-09 17:52 | Emergency (ER) | payer BC ==
[2021-02-09 19:38] LABS: Urine Blood Negative (Negative); Urine Glucose Negative (Negative); Urine Protein Negative (Negative); Urine Specific Gravity >=1.030 (1.005-1.030)
[2021-02-09 20:22] LABS: Urine Specific Gravity/Preg >1.030 (1.005-1.030)
[2021-02-10 01:12] LABS: Basophils % 1.2 % (0-1.3); Hematocrit 39.9 % (36.0-45.0); Lymphocytes % 35.1 % (15.3-44.8); MPV 7.5 fL (7.6-11.3); RBC Red Blood Cell Count 4.87 M/uL (3.86-4.86)
[2021-02-10 01:13] LABS: Protime INR 1.09
[2021-02-10] MEDS ORDERED: LORAZEPAM 1 MG TABLET ONE (01:18)
[2021-02-10 01:28] LABS: Barbiturates NEGATIVE (NEGATIVE); Benzodiazepines NEGATIVE (NEGATIVE); Cocaine NEGATIVE (NEGATIVE); METHAMPHETAM NEGATIVE (NEGATIVE); Methadone NEGATIVE (NEGATIVE); Opiates NEGATIVE (NEGATIVE); Phencyclidine NEGATIVE (NEGATIVE); THC Cannibis NEGATIVE (NEGATIVE)
[2021-02-10 01:29] LABS: ALT/SGPT 28 U/L (12-78); AST/SGOT 16 U/L (15-37); Albumin 3.6 g/dL (3.4-5.0); Alkaline Phosphatase 81 U/L (45-117); BUN Blood Urea Nitrogen 11 mg/dL (7-18); Bicarbonate 20 mmol/L (21-32); Bilirubin Direct < 0.1 mg/dL (0-0.2); Bilirubin Total 0.2 mg/dL (0.2-1.0); Glucose Level 91 mg/dL (74-106); Potassium 3.5 mmol/L (3.5-5.1); Protein, Total 7.5 g/dL (6.4-8.2); Sodium Level 140 mmol/L (136-145)
[2021-02-10] MEDS ORDERED: KETOROLAC 30 MG/ML INJ ONE (01:53)
--- NOTE | 2021-02-10 02:11 | ER ---
Nurse's Notes [facility] Name: Charity Hanks Age: 40 yrs Sex: Female : 1980 Arrival Date: 02/09/2021 Time: 18:00 Bed 7 Private MD: Diagnosis: Suicidal ideations;Other depressive episodes;Other specified anxiety disorders Presentation: 02/09 18:13 Chief complaint: Patient states: I was at psychiatrist on a teleconference. I said I am ca1 suicidal and have suicidal thoughts. My anxiety is also very high right now. My doctor called PD and I was sent here. 18:13 Method Of Arrival: Law Enforcement: [place] [employer] ca1 18:18 Coronavirus screen: Client denies travel out of the [place] in the last 14 days. At this ca1 time, the client does not indicate any symptoms associated with coronavirus-19. Ebola Screen: Patient negative for fever greater than or equal to 101.5 degrees Fahrenheit, and additional compatible Ebola Virus Disease symptoms Patient denies exposure to infectious person. Patient denies travel to an Ebola-affected area in the 21 days before illness onset. No symptoms or risks identified at this time. Initial Sepsis Screen: Does the patient meet any 2 criteria? No. Patient's initial sepsis screen is negative. Does the patient have a suspected source of infection? No. Patient's initial sepsis screen is negative. Risk Assessment: Do you want to hurt yourself or someone else? Patient reports desire/thoughts of hurting themselves or someone else. Provider notified. Onset of symptoms was February 06, 2021. 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 - Social history:: Smoking status: Patient reports the use of cigarette tobacco products, smokes one-half pack cigarettes per day. Screenin/06 00:53 Abuse screen: Denies threats or abuse. Nutritional screening: No deficits noted. em Tuberculosis screening: No symptoms or risk factors identified. Fall Risk None identified. Assessment: 01:06 General: Appears in no apparent distress. comfortable, Behavior is calm, cooperative, em appropriate for age, Reports reports SI, hx of SI and anxiety. Pain: Denies pain. Neuro: Level of Consciousness is awake, alert, obeys commands, Oriented to person, place, time, situation. Cardiovascular: Capillary refill < 3 seconds Patient's skin is warm and dry. Respiratory: Airway is patent Respiratory effort is even, unlabored, Respiratory pattern is regular, symmetrical. Derm: Skin is intact, is healthy with good turgor, Skin is pink, warm \\T\\ dry. Musculoskeletal: Capillary refill < 3 seconds, Range of motion: intact in all extremities. 02:47 Reassessment: report given to bree at [facility]. 03:04 Reassessment: report given to dulce maria at [facility], doc to doc # [phone], Dr clay Grant. 04:00 Reassessment: Patient appears in no apparent distress at this time. Patient and/or em family updated on plan of care and expected duration. Pain level reassessed. Patient is alert, oriented x 3, equal unlabored respirations, skin warm/dry/pink. 05:20 Reassessment: Patient appears in no apparent distress at this time. Patient and/or em family updated on plan of care and expected duration. Pain level reassessed. Patient is alert, oriented x 3, equal unlabored respirations, skin warm/dry/pink. Psych: 02/09 18:16 [place] Suicide Severity Screening: In the past month, have you wished you were ca1 or wished you could go to sleep and not wake up? Patient responds "yes." "In the past month, have you actually had any thoughts of killing yourself?" Patient responds "yes." "In your lifetime, have you ever done anything, started to do anything, or prepared to do anything to end your life?" Patient responds "no.". Subjective: Delusions are denied, Hallucinations are denied Having thoughts of suicide. Denies suicidal plan. Objective: Patient is cooperative, Speech is normal, Affect is appropriate, Patient has mutilated themselves by denied at this time. Pt denies substance abuse. 02/10 01:06 Interventions: Removed personal items and placed in bag. Patient placed in hospital em gown. Searched person for dangerous items. Urine collected and sent for urine drug test. Belonging list filled out. Safety Checks: Personal items have been removed. No visitors are present at this time. Vital Signs: 02/09 18:18 BP 126 / 87; Pulse 105; Resp 18 S; Temp 97.8(TE); Pulse Ox 96% on R/A; Weight 99.79 kg ca1 (R); Height 5 ft. 2 in. (157.48 cm) (R); Pain 0/10; 02/10 02:53 BP 126 / 82; Pulse 80; Resp 18; Pulse Ox 99% on R/A; em 02/09 18:18 Body Mass Index 40.24 (99.79 kg, 157.48 cm) ca1 ED Course: 02/09 18:00 Patient arrived in ED. mr 18:19 Triage completed. ca1 18:19 Arm band placed on right wrist. ca1 02/10 00:02 Mayank Arvizu PA is PHCP. cp 00:02 Donato Murillo MD is Attending Physician. cp 00:18 Oumar Hodges, JAMES is Primary Nurse. em 00:50 Initial lab(s) drawn, by me, sent to lab. COVID swab sent to lab. Inserted saline lock: em 22 gauge in right wrist, using aseptic technique. Blood collected. 00:53 Patient has correct armband on for positive identification. Placed in gown. Bed in low em position. Adult w/ patient. Pulse ox on. NIBP on. 02:27 faxed patient information to all psych facilities. mw2 02:41 nurse to nurse with Narayan from [facility]. mw2 02:41 nurse to nurse with Dulce Maria from [facility]. mw2 03:17 nurse to nurse with Anais from [facility]. mw2 03:37 administrative approval given by Sampson Butts/patient has been accepted to [address]/ Dr. Grant accepted the patient in transfer. 03:49 No provider procedures requiring assistance completed. IV discontinued, intact, em bleeding controlled, No redness/swelling at site. Pressure dressing applied. 05:54 administrative approval given by Chivo Valverde/ patient has been accepted to [facility]/ Dr. Osullivan has accepted the patient in transfer/. Administered Medications: 01:01 Drug: Ativan (LORazepam) 1 mg Route: PO; em 01:34 Follow up: Response: No adverse reaction em 01:34 Drug: Ketorolac 15 mg Route: IVP; Site: right wrist; em 02:29 Follow up: Response: No adverse reaction; Marked relief of symptoms; Pain is decreased em 02:30 Drug: Atarax (hydrOXYzine) 25 mg Route: PO; em 03:49 Follow up: Response: No adverse reaction em Outcome: 02:10 ER care complete, transfer ordered by . 06:23 Transferred by ground EMS Transfer form completed. X-rays sent w/ patient. Note: em [facility] 06:23 Condition: stable 06:23 Instructed on the need for admit, Demonstrated understanding of instructions. 06:24 Patient left the ED. em Signatures: Alie Hanson Edgar, RN RN em Mayank Arvizu PA PA Yael Moon mw2 Clarissa Harris Mague Smith RN RN ca1
--- NOTE | 2021-02-10 02:11 | EDPHYS ---
Physician Documentation [facility] Name: Charity Hanks Age: 40 yrs Sex: Female : 1980 Arrival Date: 02/09/2021 Time: 18:00 Bed 7 Private MD: ED Physician Donato Murillo HPI: 02/10 00:14 This 40 yrs old Female presents to ER via Law Enforcement with complaints of cp Suicidal Ideation. 00:14 The patient presents to the emergency department with depression, suicide ideation, but cp the patient has no formulated plan. 00:14 Onset: The symptoms/episode began/occurred gradually. cp 00:14 Past psychiatric history: Prior diagnosis: depression, Psychiatric medications include: cp Trazodone, Seroquel, the patient has a previous inpatient psychiatric history, last month, at [facility]. Associated signs and symptoms: Pertinent negatives: abdominal pain, chest pain, fever, hallucinations, homicidal ideation, palpitations, paranoia. 00:15 Patient reports recent release from [facility] on 02-04-2021. Patient reports cp medications were changed during hospitalization and since discharge has had increasing thoughts of suicide. 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 - Social history:: Smoking status: Patient reports the use of cigarette tobacco products, smokes one-half pack cigarettes per day. ROS: 02/10 00:20 Constitutional: Negative for body aches, chills, fever, poor PO intake. cp 00:20 Eyes: Negative for injury, pain, redness, and discharge. cp 00:20 ENT: Negative for ear pain, sore throat, difficulty swallowing, difficulty handling secretions. 00:20 Cardiovascular: Negative for chest pain, edema, palpitations. 00:20 Respiratory: Negative for cough, shortness of breath, wheezing. 00:20 Abdomen/GI: Negative for abdominal pain, nausea, vomiting, and diarrhea. 00:20 Neuro: Negative for altered mental status, dizziness, headache, numbness, syncope, weakness. 00:20 Psych: Positive for anxiety, depression, suicidal ideation, Negative for auditory hallucinations, visual hallucinations, suicide gesture. 00:20 All other systems are negative. Exam: 00:23 Constitutional: The patient appears in no acute distress, alert, awake, cp non-diaphoretic, non-toxic, well developed, well nourished, obese. 00:23 Head/Face: Normocephalic, atraumatic. cp 00:23 Eyes: Periorbital structures: appear normal, Pupils: equal, round, and reactive to light and accomodation, Extraocular movements: intact throughout, Conjunctiva: normal, no exudate, no injection, Sclera: no appreciated abnormality, Lids and lashes: appear normal, bilaterally. 00:23 ENT: External ear(s): are unremarkable, Nose: is normal, Mouth: Lips: moist, Oral mucosa: moist, Posterior pharynx: Airway: no evidence of obstruction, patent. 00:23 Chest/axilla: Inspection: normal, Palpation: is normal, no crepitus, no tenderness. 00:23 Cardiovascular: Rate: tachycardic, Rhythm: regular. 00:23 Respiratory: the patient does not display signs of respiratory distress, Respirations: normal, no use of accessory muscles, no retractions, labored breathing, is not present, Breath sounds: are clear throughout, no decreased breath sounds, no stridor, no wheezing. 00:23 Abdomen/GI: Exam negative for discomfort, distension, guarding, Inspection: abdomen appears normal. 00:23 Skin: no rash present. 00:23 Neuro: Orientation: to person, place \T\ time. Mentation: is normal, Cerebellar function: is grossly normal, Motor: moves all fours, strength is normal, Sensation: is normal. 01:18 ECG was reviewed by the Attending Physician. cp Vital Signs: 02/09 18:18 BP 126 / 87; Pulse 105; Resp 18 S; Temp 97.8(TE); Pulse Ox 96% on R/A; Weight 99.79 kg ca1 (R); Height 5 ft. 2 in. (157.48 cm) (R); Pain 0/10; 02/10 02:53 BP 126 / 82; Pulse 80; Resp 18; Pulse Ox 99% on R/A; em 02/09 18:18 Body Mass Index 40.24 (99.79 kg, 157.48 cm) ca1 MDM: 00:09 Patient medically screened. cp 00:35 Differential diagnosis: drug withdrawal. acute psychotic break, depression, psychosis cp secondary to non-compliance. 02:00 Data reviewed: vital signs, nurses notes, lab test result(s), EKG. cp 02:00 Test interpretation: by ED physician or midlevel provider: ECG. Physician consultation: cp was contacted at 04:57, DR Osullivan \[facility] will accept patient as transfer for inpatient treatment. 02/09 19:37 Order name: Urine Dipstick-Ancillary; Complete Time: 00:16 EDMS 02/10 00:17 Interpretation: Reviewed. cp 02/09 19:38 Order name: Urine --Ancillary (enter results) mw2 02/09 19:38 Order name: Urine --Ancillary; Complete Time: 00:16 EDMS 08 00:16 Interpretation: Abnormal: USPGRP >1.030. cp 02/10 00:04 Order name: Acetaminophen; Complete Time: 01:50 cp 02/10 00:04 Order name: Basic Metabolic Panel; Complete Time: 01:50 cp 02/10 01:50 Interpretation: Normal except: CL 111; CO2 20; GFR 88; CA 8.3. cp 02/10 00:04 Order name: CBC with Diff; Complete Time: 01:25 cp 02/10 01:26 Interpretation: Normal except: RBC 4.87; MPV 7.5. cp 02/10 00:04 Order name: ETOH Level; Complete Time: 01:50 cp 02/10 01:51 Interpretation: ETOH < 10; Reviewed. cp 02/10 00:04 Order name: Hepatic Function; Complete Time: 01:50 cp 02/10 01:51 Interpretation: Normal except: GLOB 3.9; A/G 0.9. cp 02/10 00:04 Order name: PT-INR; Complete Time: 01:25 cp 02/10 00:04 Order name: Ptt, Activated; Complete Time: 01:25 cp 08/ 00:04 Order name: Salicylate; Complete Time: 01:50 cp 08/ 01:51 Interpretation: JOSIE 2.5; Reviewed. cp 08/ 00:04 Order name: Urine Drug Screen; Complete Time: 01:50 cp 08 01:51 Interpretation: Reviewed. cp 08 02:08 Order name: SARS-COV-2 RT PCR; Complete Time: 04:33 EDMS 08 19:38 Order name: Urine Dipstick-Ancillary (obtain specimen); Complete Time: 00:19 mw2 08 19:38 Order name: Urine Test (obtain specimen); Complete Time: 00:19 mw2 08 00:04 Order name: EKG; Complete Time: 00:05 cp 08/06 00:04 Order name: EKG - Nurse/Tech; Complete Time: 00:19 cp 08 00:04 Order name: IV Saline Lock; Complete Time: 00:53 cp 08 00:04 Order name: Labs collected and sent; Complete Time: 00:53 cp 08 00:04 Order name: Suicide Precautions; Complete Time: 00:19 cp 08/ 00:04 Order name: Suicide Screening ([place]); Complete Time: 00:19 cp EC:18 Rate is 81 beats/min. Rhythm is regular. OK interval is normal. QRS interval is normal. cp QT interval is normal. T waves are Inverted in lead aVR. Interpreted by me. Reviewed by me. Administered Medications: 01:01 Drug: Ativan (LORazepam) 1 mg Route: PO; em 01:34 Follow up: Response: No adverse reaction em 01:34 Drug: Ketorolac 15 mg Route: IVP; Site: right wrist; em 02:29 Follow up: Response: No adverse reaction; Marked relief of symptoms; Pain is decreased em 02:30 Drug: Atarax (hydrOXYzine) 25 mg Route: PO; em 03:49 Follow up: Response: No adverse reaction em Disposition: 06:57 Co-signature as Attending Physician, Donato Murillo MD. mh7 Disposition Summary: 02/10/21 02:10 Transfer Ordered Transfer Location: [facility] Facility cp Reason: Higher level of care cp Condition: Stable cp Problem: an ongoing problem cp Symptoms: are unchanged cp Accepting Physician: DR Osullivan(02/10/21 06:24) em Diagnosis - Suicidal ideations cp - Other depressive episodes cp - Other specified anxiety disorders cp Forms: - Medication Reconciliation Form cp - SBAR form cp Signatures: Dispatcher [employer] EDOumar Yin RN RN em Mayank Arvizu PA PA cp Yael Moon mw2 Mague Smith RN RN [facility] Donato Murillo MD MD mh7 Corrections: (The following items were deleted from the chart) 00:55 00:04 CORONAVIRUS+MR.LAB.BRZ ordered. EDMS EDMS 01:50 01:50 Normal except: CL 111; CO2 20; GFR 88. cp cp 03:34 02:10 Doctor cp cp 04:59 03:34 DR Grant cp cp 06:24 04:59 DR Osullivan cp em
[2021-02-10] MEDS ORDERED: hydrOXYzine HCL 25 MG TAB ONE (02:48)
[2021-02-10 06:33] VITALS: TEMP 97.8
[2021-02-10 06:34] VITALS: BP 126/82; O2SAT 99
--- NOTE | 2021-02-10 10:49 | EKG ---
Test Date: 2021-02-10 Test Time: 01:10:07 Senior Project Leader/Team Lead: GUSTAVO MEASUREMENT RESULTS: Intervals: Rate: 81 UT: 144 QRSD: 88 QT: 390 QTc: 453 [place]: P: 36 UT: 144 QRS: -13 T: 34 INTERPRETIVE STATEMENTS: Normal sinus rhythm Biatrial enlargement Possible Anterior infarct, age undetermined Abnormal ECG Compared to ECG 01/17/2021 16:05:53 Myocardial infarct finding now present Electronically Signed On 02-10-21 10:48:07 CDT by Edgar Bazzi
== END 2021-02-10 06:24 ==
LOC: ER 17:52
DX: R45.851 Suicidal ideations (principal); F32.89 Other specified depressive episodes; F41.8 Other specified anxiety disorders; I10 Essential (primary) hypertension; F17.210 Nicotine dependence, cigarettes, uncomplicated; Z20.822 Contact with and (suspected) exposure to COVID-19
CPT/HCPCS: 93005; 85025; 80048; 36415; 80320; 80329 ×2; 81025; 85610; 80076; 85730; 81003; 80307; 96374; 99285; U0003

== ENCOUNTER 2021-04-14 20:25 | Emergency (ER) | payer BC ==
[2021-04-14 21:02] LABS: Absolute Lymphocytes (CBC) 3.5 K/uL (0.7-4.9); Basophils % 0.9 % (0-1.3); Hematocrit 41.8 % (36.0-45.0); Lymphocytes % 28.6 % (15.3-44.8); MPV 7.6 fL (7.6-11.3); Protime INR 1.07
[2021-04-14] MEDS ORDERED: NA CHLORIDE 0.9% 1,000 ML ONE (21:20)
[2021-04-14] MEDS ORDERED: MORPHINE 2 MG/ML SYR ONE ×2 (21:20→23:43)
[2021-04-14 21:24] LABS: ALT/SGPT 37 U/L (12-78); AST/SGOT 10 U/L (15-37); Albumin 3.5 g/dL (3.4-5.0); Alkaline Phosphatase 126 U/L (45-117); BUN Blood Urea Nitrogen 15 mg/dL (7-18); Bicarbonate 21 mmol/L (21-32); Bilirubin Direct < 0.1 mg/dL (0-0.2); Bilirubin Total 0.2 mg/dL (0.2-1.0); Glucose Level 126 mg/dL (74-106); NT PRO-BNP 9 pg/mL (<125); Potassium 3.1 mmol/L (3.5-5.1); Protein, Total 7.4 g/dL (6.4-8.2); Sodium Level 141 mmol/L (136-145); Troponin (Emerg Dept Use Only) < 0.02 ng/mL (0.0-0.045)
--- NOTE | 2021-04-14 22:01 | RAD REPORT ---
EXAM DESCRIPTION: [place] Single View04/14/2021 9:20 pm CLINICAL HISTORY: Chest pain COMPARISON: January 2021 FINDINGS: The left base is hazy. Right lung appears clear. Heart is normal size IMPRESSION: Left base is hazy. This could be secondary to infiltrate or overlying soft tissue. Eithe r PA and lateral chest series or CT chest recommended
[2021-04-14] MEDS ORDERED: NA CHLORIDE 0.9% 500 ML ONE (23:24)
[2021-04-14] MEDS ORDERED: KCL 20 MEQ/100 mL IVPB 20 MEQ/100 ML BAG IV ONE (23:24)
[2021-04-14] MEDS ORDERED: LORazepam 2 MG/ML VIAL ONE (23:42)
[2021-04-15] MEDS ORDERED: AZITHROMYCIN 250 MG TAB ONE (01:20)
[2021-04-15] MEDS ORDERED: CEFTRIAXONE 1000 MG/VIAL ONE (01:20)
--- NOTE | 2021-04-15 01:42 | ER ---
Nurse's Notes [facility] Name: Charity Hanks Age: 41 yrs Sex: Female : 1980 Arrival Date: 04/14/2021 Time: 20:27 Bed 4 Private MD: Diagnosis: Chest pain, unspecified Presentation: 04/14 20:39 Chief complaint: Patient states: Reports chest pain that started 45 minutes ago pt ea reports it starts in the center of her chest and travels to her back, reports shortness of breath with pain. Coronavirus screen: At this time, the client does not indicate any symptoms associated with coronavirus-19. Ebola Screen: No symptoms or risks identified at this time. Initial Sepsis Screen: Does the patient meet any 2 criteria? No. Patient's initial sepsis screen is negative. Does the patient have a suspected source of infection? No. Patient's initial sepsis screen is negative. Risk Assessment: Do you want to hurt yourself or someone else? Patient reports no desire to harm self or others. Onset of symptoms was April 14, 2021. 20:39 Acuity: CARLOS 3 ea 20:39 Method Of Arrival: EMS ea Historical: - Allergies: 20:42 No Known Allergies; ea - Home Meds: 20:42 trazodone 50 mg Oral tab nightly [Active]; Seroquel 200 mg Oral tab nightly [Active]; ea Seroquel 50 mg Oral tab 2 times per day [Active]; Prozac 40 mg Oral cap once daily [Active]; Melatonin Oral [Active]; losartan 50 mg Oral tab once daily [Active]; - PMHx: 20:42 PTSD; Myocardial infarction; insomnia; Hypertension; Depression; Anxiety; ea - Immunization history:: Adult Immunizations up to date. - Social history:: Smoking status: unknown. Screenin:39 Abuse screen: Denies threats or abuse. Nutritional screening: No deficits noted. ea Tuberculosis screening: No symptoms or risk factors identified. Fall Risk IV access (20 points). Assessment: 20:43 General: Appears uncomfortable, Behavior is appropriate for age. Pain: Complains of ea pain in chest Pain radiates to back. Neuro: Level of Consciousness is awake, alert, obeys commands, Oriented to person, place, time. Cardiovascular: Patient's skin is warm and dry. Respiratory: Airway is patent Respiratory effort is even, unlabored, Respiratory pattern is regular, symmetrical. Derm: Skin is pink, warm \T\ dry. 22:00 Reassessment: Patient and/or family updated on plan of care and expected duration. Pain ea level reassessed. Pt resting with eyes closed, respirations even and unlabored, chest expansions even and symmetrical. No s/s of pain or discomfort noted at this time. 23:12 Reassessment: Patient and/or family updated on plan of care and expected duration. Pain ea level reassessed. Pt resting with eyes closed, respirations even and unlabored, chest expansions even and symmetrical. No s/s of pain or discomfort noted at this time. 04/15 00:16 Reassessment: Patient and/or family updated on plan of care and expected duration. Pain ea level reassessed. Patient is alert, oriented x 3, equal unlabored respirations, skin warm/dry/pink. Vital Signs: 04/14 20:39 BP 114 / 76; Pulse 95; Resp 20; Temp 98.6; Pulse Ox 97% ; ea 22:00 BP 104 / 61; Pulse 80; Resp 18; Pulse Ox 97% ; ea 23:00 BP 110 / 69; Pulse 73; Resp 18; Pulse Ox 95% ; ea 04/15 01:00 BP 122 / 87; Pulse 71; Resp 19; Temp 98.2; Pulse Ox 97% ; ea ED Course: 04/14 20:27 Patient arrived in ED. wm 20:37 Traci Hines, JAMES is Primary Nurse. ea 20:39 Inserted saline lock: 20 gauge in right antecubital area, using aseptic technique. ea Blood collected. 20:42 Triage completed. ea 20:43 Arm band placed on right wrist. Patient placed in an exam room, on a stretcher, on ea pulse oximetry. 20:43 Patient has correct armband on for positive identification. Bed in low position. Call ea light in reach. 20:47 Mayank Arvizu PA is PHCP. cp 20:47 Ricci Urias MD is Attending Physician. cp 21:20 XRAY Chest (1 view) In Process Unspecified. EDMS 23:57 CT Chest For PE Angio In Process Unspecified. EDMS 04/15 01:50 No provider procedures requiring assistance completed. ea 01:56 IV discontinued, intact, bleeding controlled, No redness/swelling at site. Pressure ea dressing applied. Administered Medications: 04/14 20:58 Drug: NS 0.9% 1000 ml Route: IV; Rate: 1000 ml/hr; Site: right antecubital; ea 04/15 01:55 Follow up: Response: No adverse reaction; IV Status: Completed infusion; IV Intake: ea 1000ml 04/14 20:59 Drug: morphine 2 mg Route: IVP; Site: right antecubital; ea 23:08 Follow up: Response: No adverse reaction ea 23:04 Drug: Potassium Chloride 20 mEq Route: IV; Rate: calculated rate; Site: right ea antecubital; 04/15 01:23 Follow up: Response: No adverse reaction; IV Status: Completed infusion; IV Intake: ea 100ml 04/14 23:23 Drug: morphine 2 mg Route: IVP; Site: right antecubital; ea 04/15 00:20 Follow up: Response: No adverse reaction ea 04/14 23:23 Drug: Ativan (LORazepam) 1 mg Route: IVP; Site: right antecubital; ea 04/15 00:20 Follow up: Response: No adverse reaction ea 00:58 Drug: Zithromax (azithromycin) 500 mg Route: PO; ea 01:55 Follow up: Response: No adverse reaction ea 01:23 Drug: Rocephin (cefTRIAXone) 1 grams Route: IV; Rate: calculated rate; Site: right ea antecubital; 01:55 Follow up: IV Status: Completed infusion ea Intake: 01:23 IV: 100ml; Total: 100ml. ea 01:55 IV: 1000ml; Total: 1100ml. ea Outcome: 01:41 Discharge ordered by . laura 01:56 Discharged to home ambulatory. ea 01:56 Condition: stable 01:56 Discharge instructions given to patient, Instructed on discharge instructions, follow up and referral plans. medication usage, Demonstrated understanding of instructions, follow-up care, medications, Prescriptions given X 2. 01:56 Patient left the ED. ea Signatures: Dispatcher [employer] EDMS Mayank Arvizu PA PA cp Antunez, Elena, RN RN Anne Thapa
--- NOTE | 2021-04-15 01:42 | EDPHYS ---
Physician Documentation [facility] Name: Charity Hanks Age: 41 yrs Sex: Female : 1980 Arrival Date: 04/14/2021 Time: 20:27 Bed 4 Private MD: ED Physician Ricci Urias HPI: 04/14 20:40 This 41 yrs old Female presents to ER via EMS with complaints of Chest Pain. cp 20:40 The patient or guardian reports chest pain that is located primarily in the anterior cp chest wall. 20:40 Onset: 45 minute(s) ago. The pain radiates to back. cp 20:40 Associated signs and symptoms: Pertinent positives: shortness of breath, Pertinent cp negatives: abdominal pain, diaphoresis, dizziness, lower extremity pain, lower extremity swelling, syncope, vomiting. The chest pain is described as aching. Duration: The patient or guardian reports a single episode, that is still ongoing, and unchanged. Severity of pain: in the emergency department the pain is unchanged despite home interventions. Historical: - Allergies: 20:42 No Known Allergies; ea - Home Meds: 20:42 trazodone 50 mg Oral tab nightly [Active]; Seroquel 200 mg Oral tab nightly [Active]; ea Seroquel 50 mg Oral tab 2 times per day [Active]; Prozac 40 mg Oral cap once daily [Active]; Melatonin Oral [Active]; losartan 50 mg Oral tab once daily [Active]; - PMHx: 20:42 PTSD; Myocardial infarction; insomnia; Hypertension; Depression; Anxiety; ea - Immunization history:: Adult Immunizations up to date. - Social history:: Smoking status: unknown. ROS: 20:45 Constitutional: Negative for fever. cp 20:45 Cardiovascular: Positive for chest pain. cp 20:45 Respiratory: Positive for shortness of breath. cp 20:45 Eyes: Negative for injury, pain, redness, and discharge. cp 20:45 ENT: Negative for drainage from ear(s), ear pain, sore throat, difficulty swallowing, difficulty handling secretions. 20:45 Abdomen/GI: Negative for abdominal pain, nausea, vomiting, and diarrhea. 20:45 Back: Positive for radiated pain. 20:45 Neuro: Negative for altered mental status, headache, weakness. 20:45 All other systems are negative. Exam: 20:45 ECG was reviewed by the Attending Physician. cp 20:50 Constitutional: The patient appears in no acute distress, alert, awake, cp non-diaphoretic, non-toxic, well developed, well nourished, obese, uncomfortable. 20:50 Head/Face: Normocephalic, atraumatic. cp 20:50 Eyes: Periorbital structures: appear normal, Conjunctiva: normal, no exudate, no injection, Sclera: no appreciated abnormality, Lids and lashes: appear normal, bilaterally. 20:50 ENT: External ear(s): are unremarkable, Nose: is normal, Mouth: Lips: moist, Oral mucosa: moist, Posterior pharynx: Airway: no evidence of obstruction, patent. 20:50 Neck: ROM/movement: is normal, is supple, without pain, no range of motions limitations, no meningismus. 20:50 Chest/axilla: Inspection: normal. 20:50 Cardiovascular: Rate: normal, Rhythm: regular, Edema: is not appreciated, JVD: is not appreciated. 20:50 Respiratory: the patient does not display signs of respiratory distress, Respirations: normal, no use of accessory muscles, no retractions, labored breathing, is not present, Breath sounds: are clear throughout, no decreased breath sounds, no stridor, no wheezing. 20:50 Abdomen/GI: Inspection: abdomen appears normal, Bowel sounds: active, all quadrants, Palpation: abdomen is soft and non-tender, in all quadrants. 20:50 Back: vertebral tenderness, is not appreciated. 20:50 Neuro: Orientation: to person, place \T\ time. Mentation: is normal, Motor: moves all fours, strength is normal, Sensation: is normal. Vital Signs: 20:39 BP 114 / 76; Pulse 95; Resp 20; Temp 98.6; Pulse Ox 97% ; ea 22:00 BP 104 / 61; Pulse 80; Resp 18; Pulse Ox 97% ; ea 23:00 BP 110 / 69; Pulse 73; Resp 18; Pulse Ox 95% ; ea 04/15 01:00 BP 122 / 87; Pulse 71; Resp 19; Temp 98.2; Pulse Ox 97% ; ea MDM: 04/14 20:51 Patient medically screened. cp 04/15 00:00 Differential diagnosis: acute myocardial infarction, acute pericarditis, anxiety, cp costochondritis, pericarditis, pleurisy, pneumonia, pneumothorax, pulmonary embolus, thoracic aortic disection. 01:40 Data reviewed: vital signs, nurses notes, lab test result(s), EKG, radiologic studies, cp CT scan, plain films. 01:40 Test interpretation: by ED physician or midlevel provider: ECG, plain radiologic cp studies. Special discussion: Based on the patient's history, exam, and Dx evaluation, there is no indication for emergent intervention or inpatient Tx. It is understood by the patient/guardian that if the Sx's persist or worsen they need to return immediately for re-evaluation. 01:40 Counseling: I had a detailed discussion with the patient and/or guardian regarding: the cp historical points, exam findings, and any diagnostic results supporting the discharge/admit diagnosis, lab results, radiology results, to return to the emergency department if symptoms worsen or persist or if there are any questions or concerns that arise at home. 01:40 ED course: VSS. Pain markedly improved and patient observed sleeping in exam room. Low cp suspicion for cardiac cause of chest pain. Initial and repeat troponin negative, EKG negative for STEMI. 04/14 20:37 Order name: Basic Metabolic Panel; Complete Time: 22: ea 04/14 20:37 Order name: CBC with Diff; Complete Time: 04/14 22:11 Interpretation: Normal except: WBC 12.30; RBC 5.20; MCH 26.7. 04/14 20:37 Order name: LFT's; Complete Time: 22:04/14 20:37 Order name: Magnesium; Complete Time: 22:04/14 20:37 Order name: NT PRO-BNP; Complete Time: : ea 04/14 20:37 Order name: PT-INR; Complete Time: : ea 04/14 20:37 Order name: Troponin (emerg Dept Use Only); Complete Time: : ea 04/14 20:37 Order name: XRAY Chest (1 view); Complete Time: :04/14 21:50 Order name: SARS-COV-2 RT PCR; Complete Time: 00:36 EDMS 04/14 22:11 Order name: CT Chest For PE Angio 04/15 00:38 Order name: Troponin I cp 04/15 00:39 Order name: Troponin I; Complete Time: 01:39 EDMS 04/14 20:37 Order name: EKG; Complete Time: 20:38 ea 04/14 20:37 Order name: Cardiac monitoring; Complete Time: 20:39 ea 04/14 20:37 Order name: EKG - Nurse/Tech; Complete Time: 20:43 ea 04/14 20:37 Order name: IV Saline Lock; Complete Time: 20:39 ea 04/14 20:37 Order name: Labs collected and sent; Complete Time: 20:39 ea 04/14 20:37 Order name: O2 Per Protocol; Complete Time: 20:39 ea 04/14 20:37 Order name: O2 Sat Monitoring; Complete Time: 20:39 ea EC/08 20:45 Rate is 93 beats/min. Rhythm is regular. ID interval is normal. QRS interval is normal. cp QT interval is normal. T waves are Inverted in lead aVR. Interpreted by me. Reviewed by me. Administered Medications: 20:58 Drug: NS 0.9% 1000 ml Route: IV; Rate: 1000 ml/hr; Site: right antecubital; ea 04/15 01:55 Follow up: Response: No adverse reaction; IV Status: Completed infusion; IV Intake: ea 1000ml 04/14 20:59 Drug: morphine 2 mg Route: IVP; Site: right antecubital; ea 23:08 Follow up: Response: No adverse reaction ea 23:04 Drug: Potassium Chloride 20 mEq Route: IV; Rate: calculated rate; Site: right ea antecubital; 04/15 01:23 Follow up: Response: No adverse reaction; IV Status: Completed infusion; IV Intake: ea 100ml 04/14 23:23 Drug: morphine 2 mg Route: IVP; Site: right antecubital; ea 04/15 00:20 Follow up: Response: No adverse reaction ea 04/14 23:23 Drug: Ativan (LORazepam) 1 mg Route: IVP; Site: right antecubital; ea 04/15 00:20 Follow up: Response: No adverse reaction ea 00:58 Drug: Zithromax (azithromycin) 500 mg Route: PO; ea 01:55 Follow up: Response: No adverse reaction ea 01:23 Drug: Rocephin (cefTRIAXone) 1 grams Route: IV; Rate: calculated rate; Site: right ea antecubital; 01:55 Follow up: IV Status: Completed infusion ea Disposition: 02:26 Co-signature as Attending Physician, Ricci Urias MD. [email or web address] Disposition Summary: 04/15/21 01:41 Discharge Ordered Location: Home cp Problem: new cp Symptoms: have improved cp Condition: Stable cp Diagnosis - Chest pain, unspecified cp Followup: cp - With: Private Physician - When: 2 - 3 days - Reason: Recheck today's complaints Discharge Instructions: - Discharge Summary Sheet cp - Nonspecific Chest Pain, Adult cp - Aspirin and Your Heart cp Forms: - Medication Reconciliation Form cp - Thank You Letter cp - Antibiotic Education cp - Prescription Opioid Use cp Prescriptions: - Diclofenac Sodium 75 mg Oral tablet,delayed release (DR/EC) - take 1 tablet by ORAL route 2 times per day; 20 tablet; Refills: 0, Product cp Selection Permitted - Zithromax Z-Jefferson 250 mg Oral Tablet - take 1 tablet by ORAL route as directed for 5 days Day 1 - take two (2) tablets cp one time. Day 2, 3, 4 , 5 take one (1) tablet once daily.; 6 tablet; Refills: 0, Product Selection Permitted Signatures: Dispatcher [employer] Ricci Car MD MD pkMayank Macdonald PA PA Traci Hanks RN RN jefferson Corrections: (The following items were deleted from the chart) 04/14 21:50 20:54 CORONAVIRUS+ ordered. EDMS EDMS
[2021-04-15 02:03] VITALS: BP 114/76; TEMP 98.6; O2SAT 97
--- NOTE | 2021-04-16 19:08 | RAD REPORT ---
EXAM DESCRIPTION: Chest For Pe Angio RadLex: CT CHEST ANGIOGRAPHY WITH IV CONTRAST CLINICAL HISTORY: CHEST PAIN. COMPARISON: CTA of the chest from December 01, 2020. TECHNIQUE: CTA of the chest was performed following intravenous administration of iodinated contrast . Axial soft tissue and lung window, and coronal and sagittal soft tissue window reconstructions were created and sent to PACS. 3D postprocessing was performed on an independent workstation, with images sent to PACS for subsequen t review. This exam was performed according to our departmental dose-optimization program, which includes autom ated exposure control, adjustment of the mA and/or kV according to patient size and/or use of iterati ve reconstruction technique. FINDINGS: Vascular: The pulmonary arteries are adequately opacified to the lobar level. The segmenta l and subsegmental pulmonary arteries are obscured by streak artifact. No CT evidence of acute pulmon ann thromboembolism. No evidence of aortic aneurysm or dissection. Incidentally noted four-vessel aor tic arch, normal variant. Lungs and pleura: No pulmonary consolidation. No pleural effusion. No pneumothorax. Mild atelectasis in the right and left lower lobes. Mild mosaic attenuation, most prominent in the upper lobes. Mild d iffuse pulmonary intralobular septal thickening is suspected. Mediastinum and neck: Mild mediastinal and hilar lymphadenopathy. Partially calcified right hilar lym ph nodes.. Unremarkable appearance of the thyroid gland. Cardiac: Mild cardiomegaly. No pericardial effusion. Abdomen: Small calcified granuloma in the spleen. Unchanged partially imaged mild prominence of the i ntrahepatic bile ducts, likely postsurgical in etiology (prior cholecystectomy). Musculoskeletal: No concerning osseous abnormality. IMPRESSION: 1. No CTA evidence of acute pulmonary thromboembolism, to the lobar level. Slightly coats boptimal exam due to streak artifact. 2. Mild mosaic attenuation and suspected mild diffuse pulmonary interstitial thickening. Correlate for pulmonary edema. 3. Mild mediastinal and hilar lymphadenopathy, possibly reactive. Electronically signed by: Juli Henderson MD 04/15/2021 12:24 AM CDT Due to temporary technical issues with the PACS/Fluency reporting system, reports are being signed by the in house radiologists without review as a courtesy to insure prompt reporting. The interpreting radiologist is fully responsible for the content of the report.
== END 2021-04-15 01:56 | disposition home or self-care (01) ==
LOC: ER 20:25
DX: R07.9 Chest pain, unspecified (principal); I10 Essential (primary) hypertension; I25.2 Old myocardial infarction; F32.A Depression, unspecified; F41.9 Anxiety disorder, unspecified; Z20.822 Contact with and (suspected) exposure to COVID-19
CPT/HCPCS: 96365; 96367; 96361; 93005; 85025; 80048; 36415; 83735; 85610; 80076; 84484 ×2; 83880; 71275; 71045; 96375; 99284; 96366; U0003; Q9967; J3480; J2270 ×2; J7040; J7030

== ENCOUNTER 2021-04-19 11:05 | Emergency (ER) | payer BC ==
[2021-04-19 11:27] LABS: Absolute Lymphocytes (CBC) 2.5 K/uL (0.7-4.9); Basophils % 1.2 % (0-1.3); Hematocrit 41.4 % (36.0-45.0); Lymphocytes % 24.8 % (15.3-44.8); MPV 7.6 fL (7.6-11.3); Protime INR 1.03; RBC Red Blood Cell Count 5.13 M/uL (3.86-4.86)
[2021-04-19 11:44] LABS: ALT/SGPT 26 U/L (12-78); AST/SGOT 9 U/L (15-37); Albumin 3.4 g/dL (3.4-5.0); Alkaline Phosphatase 94 U/L (45-117); BUN Blood Urea Nitrogen 15 mg/dL (7-18); Bicarbonate 19 mmol/L (21-32); Bilirubin Direct < 0.1 mg/dL (0-0.2); Bilirubin Total 0.2 mg/dL (0.2-1.0); Glucose Level 106 mg/dL (74-106); Magnesium 1.9 mg/dL (1.8-2.4); NT PRO-BNP 39 pg/mL (<125); Potassium 3.7 mmol/L (3.5-5.1); Protein, Total 7.1 g/dL (6.4-8.2); Sodium Level 140 mmol/L (136-145); Troponin (Emerg Dept Use Only) < 0.02 ng/mL (0.0-0.045)
--- NOTE | 2021-04-19 11:53 | RAD REPORT ---
EXAM DESCRIPTION: RAD - Chest Single View - 04/19/2021 11:36 am CLINICAL HISTORY: CHEST PAIN COMPARISON: Chest Single View dated 04/14/2021; Chest Single View dated 01/09/2021; Chest Single View d ated 12/02/2020; Chest Single View dated 12/01/2020 FINDINGS: Lines: None. Lungs: No evidence of edema or pneumonia. Pleural: No significant pleural effusions or pneumothorax. Cardiac: The heart size is within normal limits. Bones: No acute fractures. Other: IMPRESSION: No acute cardiopulmonary disease.
[2021-04-19] MEDS ORDERED: NITROGLYCERIN 0.4 MG/TAB SL ONE (12:14)
[2021-04-19] MEDS ORDERED: ASPIRIN EC 81 MG TAB PO ONE (12:14)
[2021-04-19] MEDS ORDERED: NA CHLORIDE 0.9% 1,000 ML ONE (12:29)
[2021-04-19] MEDS ORDERED: ONDANSETRON 4 MG/2 ML VIAL ONE (12:45)
[2021-04-19] MEDS ORDERED: MORPHINE 4 MG/ML SYR ONE (12:45)
[2021-04-19 13:14] LABS: Urine Blood Negative (Negative); Urine Glucose Negative (Negative); Urine Protein Negative (Negative); Urine pH 5.5 (5.0-7.0)
[2021-04-19 13:36] LABS: Barbiturates NEGATIVE (NEGATIVE); Benzodiazepines POSITIVE (NEGATIVE); Cocaine NEGATIVE (NEGATIVE); METHAMPHETAM NEGATIVE (NEGATIVE); Methadone NEGATIVE (NEGATIVE); Opiates NEGATIVE (NEGATIVE); Phencyclidine NEGATIVE (NEGATIVE); THC Cannibis NEGATIVE (NEGATIVE)
[2021-04-19] MEDS ORDERED: LORazepam 2 MG/ML VIAL ONE ×2 (13:51→15:59)
--- NOTE | 2021-04-19 15:26 | EDPHYS ---
Physician Documentation [facility] Name: Charity Hanks Age: 41 yrs Sex: Female : 1980 Arrival Date: 04/19/2021 Time: 11:11 Bed 17 Private MD: ED Physician Wilfredo Asencio HPI: 04/19 16:08 This 41 yrs old Female presents to ER via EMS with complaints of Suicidal kdr ideation and medication refill. 16:08 The patient presents to the emergency department with anxiety, depression, suicide kdr ideation, and the patient has a plan, to crash a car. Onset: The symptoms/episode began/occurred gradually, 1 week(s) ago. Past psychiatric history: Prior diagnosis: depression, Psychiatric medications include: Lexapro, Primary psychiatric physician: the patient does not have a primary psychiatric physician, the patient has not had a prior suicide gesture, the patient has a previous inpatient psychiatric history, the patient's last psychiatric treatment was 3 month(s) ago. Associated signs and symptoms: The patient has no apparent associated signs or symptoms. Severity of symptoms: At their worst the symptoms were mild moderate just prior to arrival, in the emergency department the symptoms are unchanged. The patient has experienced similar episodes in the past, chronically. The patient has not recently seen a physician, The patient has missed several appointments recently to get her medications refilled. Historical: - Home Meds: 15:00 Desyrel 100 mg Oral tab [Active]; Lexapro 5 mg oral tab [Active]; Melatonin Oral ch5 [Active]; Topamax 200 mg Oral tab [Active]; Wellbutrin XL 150 mg Oral Tb24 [Active]; Zyprexa 15 mg Oral tab [Active]; Zyprexa 2.5 mg Oral tab [Active]; losartan 50 mg oral tab [Active]; Robaxin 750 mg Oral tab [Active]; Fish Oil 1,000 mg (120 mg-180 mg) oral cap [Active]; Vistaril 50 mg Oral cap [Active]; - PMHx: 15:00 Hypercholesterolemia; Anxiety; Depressive disorder; ch5 - Immunization history:: Adult Immunizations up to date, Client reports receiving the 2nd dose of the Covid vaccine. - Social history:: Smoking status: Patient reports the use of cigarette tobacco products, smokes one-half pack cigarettes per day. ROS: 16:08 Constitutional: Negative for fever, chills, and weight loss, Eyes: Negative for injury, kdr pain, redness, and discharge, ENT: Negative for injury, pain, and discharge, Neck: Negative for injury, pain, and swelling, Cardiovascular: Negative for chest pain, palpitations, and edema, Respiratory: Negative for shortness of breath, cough, wheezing, and pleuritic chest pain, Abdomen/GI: Negative for abdominal pain, nausea, vomiting, diarrhea, and constipation, Back: Negative for injury and pain, : Negative for injury, bleeding, discharge, and swelling, MS/Extremity: Negative for injury and deformity, Skin: Negative for injury, rash, and discoloration, Neuro: Negative for headache, weakness, numbness, tingling, and seizure activity. Allergy/Immunology: Negative for hives, rash, and allergies, Endocrine: Negative for neck swelling, polydipsia, polyuria, polyphagia, and marked weight changes, Hematologic/Lymphatic: Negative for swollen nodes, abnormal bleeding, and unusual bruising. 16:08 Psych: Positive for anxiety, depression, suicidal ideation. Exam: 16:08 Constitutional: This is a well developed, well nourished patient who is awake, alert, kdr and in no acute distress. Head/Face: Normocephalic, atraumatic. Eyes: Pupils equal round and reactive to light, extra-ocular motions intact. Lids and lashes normal. Conjunctiva and sclera are non-icteric and not injected. Cornea within normal limits. Periorbital areas with no swelling, redness, or edema. Neck: Trachea midline, no thyromegaly or masses palpated, and no cervical lymphadenopathy. Supple, full range of motion without nuchal rigidity, or vertebral point tenderness. No Meningismus. Chest/axilla: Normal chest wall appearance and motion. Nontender with no deformity. No lesions are appreciated. Cardiovascular: Regular rate and rhythm with a normal S1 and S2. No gallops, murmurs, or rubs. Normal PMI, no JVD. No pulse deficits. Respiratory: Lungs have equal breath sounds bilaterally, clear to auscultation and percussion. No rales, rhonchi or wheezes noted. No increased work of breathing, no retractions or nasal flaring. Abdomen/GI: Soft, non-tender, with normal bowel sounds. No distension or tympany. No guarding or rebound. No evidence of tenderness throughout. Back: No spinal tenderness. No costovertebral tenderness. Full range of motion. Skin: Warm, dry with normal turgor. Normal color with no rashes, no lesions, and no evidence of cellulitis. MS/ Extremity: Pulses equal, no cyanosis. Neurovascular intact. Full, normal range of motion. Neuro: Awake and alert, GCS 15, oriented to person, place, time, and situation. Cranial nerves II-XII grossly intact. Motor strength 5/5 in all extremities. Sensory grossly intact. Cerebellar exam normal. Normal gait. 16:08 Psych: Behavior/mood is pleasant, cooperative, suicidal, appropriate for age, Affect is flat, Oriented to person, place, time. Vital Signs: 11:12 BP 147 / 94; Pulse 88; Resp 18; Temp 98; Pulse Ox 97% ; Weight 101.6 kg; Height 5 ft. 2 ch5 in. (157.48 cm); Pain 10/10; 11:48 BP 157 / 93 LA Sitting (auto/reg); Pulse 87 MON; Resp 18 S; Pulse Ox 97% on R/A; Weight mb4 101.6 kg (R); Height 5 ft. 2 in. (157.48 cm) (R); Pain 8/10; 13:28 BP 117 / 78; Pulse 86; Resp 16; Pulse Ox 97% on R/A; Pain 4/10; ch5 14:58 BP 124 / 66; Pulse 91; Resp 19; Pulse Ox 97% on R/A; ch5 16:25 BP 116 / 72; Pulse 92; Resp 20; Pulse Ox 98% ; ch5 11:48 Body Mass Index 40.97 (101.60 kg, 157.48 cm) mb4 MDM: 15:25 Patient medically screened. kdr 16:08 Data reviewed: vital signs, nurses notes, lab test result(s). Counseling: I had a kdr detailed discussion with the patient and/or guardian regarding: the historical points, exam findings, and any diagnostic results supporting the discharge/admit diagnosis, lab results, radiology results, the need to transfer to another facility. 04/19 11:12 Order name: Basic Metabolic Panel; Complete Time: 15:19 ch5 04/19 11:12 Order name: CBC with Diff; Complete Time: 15:19 5 04/19 11:12 Order name: LFT's; Complete Time: 15:19 5 04/19 11:12 Order name: Magnesium; Complete Time: 15:19 5 04/19 11:12 Order name: NT PRO-BNP; Complete Time: 15:19 5 04/19 11:12 Order name: PT-INR; Complete Time: 15:19 5 04/19 11:12 Order name: Troponin (emerg Dept Use Only); Complete Time: 15:19 5 04/19 13:03 Order name: Acetaminophen; Complete Time: 15:19 kdr 04/19 13:03 Order name: ETOH Level; Complete Time: 15:19 kdr 04/19 13:03 Order name: Ptt, Activated; Complete Time: 15:19 kdr 04/19 13:03 Order name: Salicylate; Complete Time: 15:19 kdr 04/19 13:03 Order name: Urine Drug Screen; Complete Time: 15:19 kdr 04/19 13:14 Order name: Urine Dipstick-Ancillary; Complete Time: 15:19 EDMS 04/19 11:12 Order name: XRAY Chest (1 view); Complete Time: 15:19 5 04/19 11:12 Order name: EKG; Complete Time: 11:12 5 04/19 11:12 Order name: Cardiac monitoring; Complete Time: 11:12 5 04/19 11:12 Order name: EKG - Nurse/Tech; Complete Time: 11:36 5 04/19 11:12 Order name: IV Saline Lock; Complete Time: 11:12 5 04/19 11:12 Order name: Labs collected and sent; Complete Time: 11:12 5 04/19 11:12 Order name: O2 Per Protocol; Complete Time: 11:12 5 04/19 13:15 Order name: Urine --Ancillary (enter results); Complete Time: 15:19 bd 04/19 13:51 Order name: SARS-COV-2 RT PCR; Complete Time: 15:19 EDMS 04/19 11:12 Order name: O2 Sat Monitoring; Complete Time: 11:12 5 04/19 13:03 Order name: Suicide Screening ([place]); Complete Time: 13:08 kdr 04/19 13:03 Order name: Urine Dipstick-Ancillary (obtain specimen) kdr Administered Medications: 11:45 Drug: Nitroglycerin 0.4 mg Route: Sublingual; ch5 11:50 Drug: Nitroglycerin 0.4 mg {Note: Held 3rd Nitro due to BP 83/67.} Route: Sublingual; ch5 12:00 Drug: NS 0.9% 1000 ml Route: IV; Rate: 1 bolus; Site: right forearm; ch5 12:02 Drug: Aspirin Chewable Tablet 324 mg Route: PO; ch5 13:29 Follow up: Response: No adverse reaction ch5 12:10 Drug: morphine 4 mg Route: IVP; Site: right forearm; ch5 13:29 Follow up: Response: Pain is decreased ch5 12:10 Drug: Zofran (Ondansetron) 4 mg Route: IVP; Site: right forearm; ch5 13:29 Follow up: Response: No adverse reaction ch5 13:28 Drug: Ativan (LORazepam) 1 mg Route: IVP; Site: right forearm; ch5 13:29 Follow up: Response: Anxiety decreased ch5 15:40 Drug: Ativan (LORazepam) 1 mg Route: IVP; Site: right forearm; ch5 16:25 Follow up: BP 116 / 72; Pulse 92 bpm; Resp 20 bpm; Pulse Ox 98% ch5 Disposition Summary: 04/19/21 15:25 Transfer Ordered Transfer Location: Psych Facility kdr Reason: Higher level of care kdr Condition: Fair kdr Problem: an acute exacerbation kdr Symptoms: are unchanged kdr Accepting Physician: Luke(04/19/21 16:28) ch5 Diagnosis - Major depressive disorder, recurrent severe without psychotic features kdr Forms: - Medication Reconciliation Form kdr - SBAR form kdr Signatures: Dispatcher [employer] EDMS Wilfredo Asencio MD MD kdr Pat Bennett RN RN tw2 Jens Mo RN RN ch5 Corrections: (The following items were deleted from the chart) 11:16 11:16 PMHx: PTSD; ch5 ch5 11:16 11:16 PMHx: Anxiety; ch5 ch5 11:16 11:16 PMHx: Depression; ch5 ch5 11:16 11:16 PMHx: insomnia; ch5 ch5 11:16 11:16 PMHx: Hypertension; ch5 ch5 11:16 11:16 PMHx: Myocardial infarction; 5 5 13:52 12:15 CORONAVIRUS+MRNinoLAB.BRZ ordered. EDMS EDMS 16:28 15:25 Luke kdr [facility]
--- NOTE | 2021-04-19 15:26 | ER ---
Nurse's Notes [facility] Name: Charity Hanks Age: 41 yrs Sex: Female : 1980 Arrival Date: 04/19/2021 Time: 11:11 Bed 17 Private MD: Diagnosis: Major depressive disorder, recurrent severe without psychotic features Presentation: 04/19 11:12 Chief complaint:. Chief complaint: EMS states: Brought for SI. Woke up this am feeling ch5 overwhelmed. Father is in hospital and lost family to COVID."I wanted to drive my car off a bridge but would never do that." C/O Chest pain. Coronavirus screen: Vaccine status: Patient reports receiving the 2nd dose of the covid vaccine. Ebola Screen: Patient negative for fever greater than or equal to 101.5 degrees Fahrenheit, and additional compatible Ebola Virus Disease symptoms Patient denies exposure to infectious person. Patient denies travel to an Ebola-affected area in the 21 days before illness onset. No symptoms or risks identified at this time. Initial Sepsis Screen: Does the patient meet any 2 criteria? No. Patient's initial sepsis screen is negative. Does the patient have a suspected source of infection? No. Patient's initial sepsis screen is negative. Risk Assessment: Do you want to hurt yourself or someone else? Patient reports desire/thoughts of hurting themselves or someone else. Provider notified. Onset of symptoms was April 19, 2021. 11:12 Method Of Arrival: EMS: [facility] 11:12 Acuity: CARLOS 2 5 Triage Assessment: 11:16 General: Appears uncomfortable, Behavior is anxious. Pain: Complains of pain in chest. 5 Historical: - Home Meds: 15:00 Desyrel 100 mg Oral tab [Active]; Lexapro 5 mg oral tab [Active]; Melatonin Oral ch5 [Active]; Topamax 200 mg Oral tab [Active]; Wellbutrin XL 150 mg Oral Tb24 [Active]; Zyprexa 15 mg Oral tab [Active]; Zyprexa 2.5 mg Oral tab [Active]; losartan 50 mg oral tab [Active]; Robaxin 750 mg Oral tab [Active]; Fish Oil 1,000 mg (120 mg-180 mg) oral cap [Active]; Vistaril 50 mg Oral cap [Active]; - PMHx: 15:00 Hypercholesterolemia; Anxiety; Depressive disorder; ch5 - Immunization history:: Adult Immunizations up to date, Client reports receiving the 2nd dose of the Covid vaccine. - Social history:: Smoking status: Patient reports the use of cigarette tobacco products, smokes one-half pack cigarettes per day. Screenin:58 Abuse screen: Denies threats or abuse. Nutritional screening: No deficits noted. ch5 Tuberculosis screening: No symptoms or risk factors identified. Fall Risk None identified. Assessment: 15:33 Reassessment: pt specification consultant light states "i feel like my anxiety is working its way up and tw2 i was wondering if the doctor would give me something for that", provider notified. Vital Signs: 11:12 BP 147 / 94; Pulse 88; Resp 18; Temp 98; Pulse Ox 97% ; Weight 101.6 kg; Height 5 ft. 2 ch5 in. (157.48 cm); Pain 10/10; 11:48 BP 157 / 93 LA Sitting (auto/reg); Pulse 87 MON; Resp 18 S; Pulse Ox 97% on R/A; Weight mb4 101.6 kg (R); Height 5 ft. 2 in. (157.48 cm) (R); Pain 8/10; 13:28 BP 117 / 78; Pulse 86; Resp 16; Pulse Ox 97% on R/A; Pain 4/10; ch5 14:58 BP 124 / 66; Pulse 91; Resp 19; Pulse Ox 97% on R/A; ch5 16:25 BP 116 / 72; Pulse 92; Resp 20; Pulse Ox 98% ; ch5 11:48 Body Mass Index 40.97 (101.60 kg, 157.48 cm) [facility] ED Course: 11:11 Patient arrived in ED. ch5 11:11 Wilfredo Asencio MD is Attending Physician. kdr 11:16 Triage completed. ch5 11:35 Patient has correct armband on for positive identification. Bed in low position. Side 4 rails up X 1. Valuables sent to security. leather shaver on. Pulse ox on. NIBP on. 11:36 XRAY Chest (1 view) In Process Unspecified. EDMS 11:36 Troponin (emerg Dept Use Only) Sent. es2 11:36 NT PRO-BNP Sent. es2 11:36 LFT's Sent. es2 11:36 Basic Metabolic Panel Sent. es2 11:36 Magnesium Sent. es2 11:57 Jens Mo, RN is Primary Nurse. ch5 13:59 Initial lab(s) drawn, by me, sent to lab. mb4 14:07 faxed chart to [facility] Administered Medications: 11:45 Drug: Nitroglycerin 0.4 mg Route: Sublingual; ch5 11:50 Drug: Nitroglycerin 0.4 mg {Note: Held 3rd Nitro due to BP 83/67.} Route: Sublingual; ch5 12:00 Drug: NS 0.9% 1000 ml Route: IV; Rate: 1 bolus; Site: right forearm; ch5 12:02 Drug: Aspirin Chewable Tablet 324 mg Route: PO; ch5 13:29 Follow up: Response: No adverse reaction ch5 12:10 Drug: morphine 4 mg Route: IVP; Site: right forearm; ch5 13:29 Follow up: Response: Pain is decreased ch5 12:10 Drug: Zofran (Ondansetron) 4 mg Route: IVP; Site: right forearm; ch5 13:29 Follow up: Response: No adverse reaction ch5 13:28 Drug: Ativan (LORazepam) 1 mg Route: IVP; Site: right forearm; ch5 13:29 Follow up: Response: Anxiety decreased ch5 15:40 Drug: Ativan (LORazepam) 1 mg Route: IVP; Site: right forearm; ch5 16:25 Follow up: BP 116 / 72; Pulse 92 bpm; Resp 20 bpm; Pulse Ox 98% ch5 Outcome: 15:25 ER care complete, transfer ordered by . kdr 16:26 Transferred by ground EMS ch5 16:26 Condition: good 16:26 Condition: good 16:26 Instructed on the need for transfer. 16:28 Patient left the ED. ch5 Signatures: Dispatcher [employer] EDMS Nicole Galvan Kevin, MD MD kdr Wise, Tara, RN RN tw2 Emily Gibson mb4 Jens Mo, RN RN ch5 Clarissa Lainez RN RN es2 Corrections: (The following items were deleted from the chart) 11:16 11:16 PMHx: PTSD; ch5 ch5 11:16 11:16 PMHx: Anxiety; ch5 ch5 :16 11:16 PMHx: Depression; ch5 ch5 11:16 PMHx: insomnia; ch5 ch5 16 11:16 PMHx: Hypertension; ch5 ch5 16 11:16 PMHx: Myocardial infarction; ch5 5 13:52 12:38 CORONAVIRUS+MR.LAB.BRZ drawn and sent. [facility] EDMS
[2021-04-19 16:34] VITALS: TEMP 98
[2021-04-19 16:40] VITALS: BP 116/72; O2SAT 98
== END 2021-04-19 16:28 ==
LOC: ER 11:05
DX: F33.2 Major depressive disorder, recurrent severe without psychotic features (principal); Z20.822 Contact with and (suspected) exposure to COVID-19; F17.210 Nicotine dependence, cigarettes, uncomplicated
CPT/HCPCS: 93005; 85025; 80048; 36415; 80320; 83735; 80329 ×2; 81025; 85610; 80076; 85730; 81003; 84484; 83880; 80307; 71045; 96375; 96374; 99285; U0003; J7030; J2405

== ENCOUNTER 2021-10-02 20:45 | Emergency (ER) | payer BC ==
[2021-10-02] MEDS ORDERED: MORPHINE 4 MG/ML SYR ONE (21:10)
[2021-10-02] MEDS ORDERED: ONDANSETRON 4 MG/2 ML VIAL ONE (21:10)
[2021-10-02 21:32] LABS: Absolute Lymphocytes (CBC) 2.9 K/uL (0.7-4.9); Hematocrit 41.7 % (36.0-45.0); Lymphocytes % 29.6 % (15.3-44.8); MPV 7.5 fL (7.6-11.3)
[2021-10-02] MEDS ORDERED: LORAZEPAM 1 MG TABLET ONE (21:56)
--- NOTE | 2021-10-02 22:00 | RAD REPORT ---
EXAM DESCRIPTION: RAD - Chest Single View - 10/02/2021 9:39 pm CLINICAL HISTORY: CHEST PAIN COMPARISON: Portable 04/19/2021 TECHNIQUE: AP portable chest image was obtained 10/02/2021 9:39 pm . FINDINGS: Lungs are clear. Interstitial pattern matches comparison. Heart and vasculature are normal . No measurable pleural effusion and no pneumothorax. No acute bony abnormality seen. No acute aortic findings suspected. IMPRESSION: No acute cardiopulmonary process.
--- NOTE | 2021-10-02 22:01 | RAD REPORT ---
EXAM DESCRIPTION: RAD - Sacrum And Coccyx - 10/02/2021 9:39 pm CLINICAL HISTORY: chronic pain in tailbone, worse recently, no injury;Pain COMPARISON: No comparisons FINDINGS: No sacral ala or SI joint abnormality seen. No fracture deformity identified. No pathologi c bone process seen. No presacral soft tissue thickening. IMPRESSION: Unremarkable sacrum and coccyx examination.
[2021-10-02 22:21] LABS: Potassium 3.3 mmol/L (3.5-5.1)
[2021-10-02 22:34] LABS: Troponin High Sensitivity 3.8 pg/mL (<58.9)
--- NOTE | 2021-10-02 22:38 | ER ---
Nurse's Notes [facility] Name: Charity Hanks Age: 41 yrs Sex: Female : 1980 Arrival Date: 10/02/2021 Time: 20:48 Bed 5 Private MD: Diagnosis: Sacrococcygeal disorders, not elsewhere classified;Chest pain, unspecified Presentation: 10/02 21:02 Chief complaint: Patient states: I started having chest pain today at 12 noon and my st1 tail bone is hurting. I fell from the [place] as a child injuring my tailbone and it has been hurting me recently. Coronavirus screen: Vaccine status: Patient reports receiving the 2nd dose of the covid vaccine. Moderna. Ebola Screen: No symptoms or risks identified at this time. Initial Sepsis Screen: Does the patient meet any 2 criteria? No. Patient's initial sepsis screen is negative. Does the patient have a suspected source of infection? No. Patient's initial sepsis screen is negative. Risk Assessment: Do you want to hurt yourself or someone else? Patient reports no desire to harm self or others. Onset of symptoms was October 02, 2021. 21:02 Method Of Arrival: Ambulatory st1 21:02 Acuity: CARLOS 3 st1 Triage Assessment: 21:04 General: Appears distressed, uncomfortable, obese, well groomed, Behavior is st1 cooperative, restless. Pain: Complains of pain in buttocks and coccyx and chest and mid-sternal area Pain does not radiate. Pain currently is 10 out of 10 on a pain scale. Quality of pain is described as aching, Pain began gradually. Neuro: No deficits noted. Respiratory: Respiratory effort is even, labored. GI: No deficits noted. Musculoskeletal: Reports Pain is 10 out of 10 on a pain scale. Historical: - PMHx: 21:04 Anxiety; depressive disorder; Hypercholesterolemia; PTSD; Myocardial Infarction; Manic; st1 - Immunization history:: Adult Immunizations not up to date, Flu vaccine is not up to date. - Social history:: Smoking status: Patient reports the use of cigarette tobacco products, smokes one-half pack cigarettes per day. - Family history:: not pertinent. - Hospitalizations: : No recent hospitalization is reported. Screenin:02 Abuse screen: Denies threats or abuse. Denies injuries from another. Nutritional tw5 screening: No deficits noted. Tuberculosis screening: No symptoms or risk factors identified. Fall Risk No fall in past 12 months (0 pts). Assessment: 21:02 General: "It is a sharp pain that is constant. It has been going on since noon but it tw5 is getting worse.". Pain: Complains of pain in coccyx and mid-sternal area Pain currently is 9 out of 10 on a pain scale. Pain: Pain began around noon today. Neuro: No deficits noted. Cardiovascular: Capillary refill < 3 seconds is brisk in bilateral fingers. Respiratory: No deficits noted. Musculoskeletal: No deficits noted. 22:22 Reassessment: "My pain was better until they took me down to x-ray. My tailbone pain is tw5 about a 9/10, but my chest pain is better, I would say that is about a 4/10.". Vital Signs: 21:02 BP 130 / 87; Pulse 84; Resp 15; Temp 97.3; Pulse Ox 100% on R/A; Weight 99.79 kg; st1 Height 5 ft. 2 in. (157.48 cm); Pain 10/10; 21:02 BP 130 / 87; Pulse 80; Resp 20; Pulse Ox 99% on R/A; tw5 22:22 BP 108 / 66; Pulse 73; Resp 10; Pulse Ox 96% on R/A; tw5 22:24 Pain 4/10; tw5 21:02 Body Mass Index 40.24 (99.79 kg, 157.48 cm) st1 ED Course: 20:48 Patient arrived in ED. kz 20:54 Carmine Jackson MD is Attending Physician. rn 20:54 Naya Jones is Primary Nurse. tw5 21:02 Patient has correct armband on for positive identification. Placed in gown. Bed in low tw5 position. Call light in reach. Side rails up X 1. quality assurance monitor on. Pulse ox on. NIBP on. Door closed. Noise minimized. Moved to private room. 21:02 EKG done, by hvac refrigeration technician. reviewed by Carmine Jackson MD. tw5 21:02 Patient maintains SpO2 saturation greater than 95% on room air. tw5 21:04 Triage completed. st1 21:04 Arm band placed on right wrist. st1 21:19 Troponin High Sensitivity Sent. mb7 21:19 Basic Metabolic Panel Sent. mb7 21:19 CBC with Diff Sent. mb7 21:20 Inserted saline lock: 20 gauge in left antecubital area, using aseptic technique. mb7 21:40 XRAY Chest (1 view) In Process Unspecified. EDMS 21:41 XRAY Sacrum And Coccyx In Process Unspecified. EDMS 22:51 No provider procedures requiring assistance completed. IV discontinued, intact, kd3 bleeding controlled, No redness/swelling at site. Pressure dressing applied. Administered Medications: 21:25 Drug: Zofran (Ondansetron) 4 mg Route: IVP; Site: left antecubital; kd3 22:24 Follow up: Response: No adverse reaction tw5 21:26 Drug: morphine 4 mg Route: IVP; Site: left antecubital; kd3 22:24 Follow up: Pain 4/10 Adult; Response: No adverse reaction; Pain is decreased; RASS: tw5 Alert and Calm (0) 21:55 Drug: Ativan (LORazepam) 1 mg Route: PO; kd3 22:24 Follow up: Response: No adverse reaction; Anxiety decreased tw5 Outcome: 22:37 Discharge ordered by . rn 22:51 Discharged to home ambulatory. kd3 22:51 Condition: stable 22:51 Discharge instructions given to patient, Instructed on discharge instructions, follow up and referral plans. Demonstrated understanding of instructions, follow-up care. 22:52 Patient left the ED. kd3 Signatures: Dispatcher [employer] EDLA Carmine Jackson MD MD rn Wood, Tiffany tw5 Jerri Can RN RN kd3 Alie Banks mb7 Sandra Sanchez RN RN st1 Dona Soto
--- NOTE | 2021-10-02 22:38 | EDPHYS ---
Physician Documentation [facility] Name: Charity Hanks Age: 41 yrs Sex: Female : 1980 Arrival Date: 10/02/2021 Time: 20:48 Bed 5 Private MD: ED Physician Carmine Jackson HPI: 10/02 21:03 This 41 yrs old Female presents to ER via Unassigned with complaints of Chest Pain, rn Tail bone pain. 21:03 The patient presents with pain that is chronic, with no known mechanism of injury. The rn symptoms are located in the coccyx area. The pain does not radiate. The problem was sustained without known cause. Modifying factors: The patient symptoms are alleviated by nothing, the patient symptoms are aggravated by any movement, standing, supine position, walking. Associated signs and symptoms: Pertinent positives: none Pertinent negatives: abdominal pain, constipation, dysuria, fever, hematuria, incontinence, numbness, tingling, urinary retention, vomiting, weakness. Severity of symptoms: At their worst the symptoms were moderate, in the emergency department the symptoms are unchanged. The patient has experienced similar episodes in the past, chronically. The patient has not recently seen a physician. Pt reports what brought her in is tailbone pain, reports present for years, no recent injury or fall, no fever, pain is "making [her] chest hurt". Denies skin changes. No abd pain/vomiting/diarrhea. NO weakness of extremities or numbness/tingling. No radiation down legs. Reports hurts to sit and lay on tailbone. . Historical: - PMHx: 21:04 Anxiety; depressive disorder; Hypercholesterolemia; PTSD; Myocardial Infarction; Manic; st1 - Immunization history:: Adult Immunizations not up to date, Flu vaccine is not up to date. - Social history:: Smoking status: Patient reports the use of cigarette tobacco products, smokes one-half pack cigarettes per day. - Family history:: not pertinent. - Hospitalizations: : No recent hospitalization is reported. ROS: 21:03 Constitutional: Negative for fever, chills, and weight loss, Eyes: Negative for injury, rn pain, redness, and discharge, Neck: Negative for injury, pain, and swelling, Cardiovascular: Negative for palpitations, and edema, Respiratory: Negative for shortness of breath, cough, wheezing, and pleuritic chest pain, Abdomen/GI: Negative for abdominal pain, nausea, vomiting, diarrhea, and constipation, Back: Negative for injury : Negative for injury, bleeding, discharge, and swelling, MS/Extremity: Negative for injury and deformity, Skin: Negative for injury, rash, and discoloration, Neuro: Negative for headache, weakness, numbness, tingling, and seizure. Exam: 21:03 Constitutional: This is a well developed, well nourished patient who is awake, alert, rn appears in pain Head/Face: Normocephalic, atraumatic. Eyes: Periorbital areas with no swelling, redness, or edema. Cardiovascular: Regular rate and rhythm. No pulse deficits. Respiratory: No increased work of breathing, no retractions or nasal flaring. Abdomen/GI: Soft, non-tender, no masses, no peritoneal signs. Back: No spinal tenderness. No costovertebral tenderness. + tenderness located at coccyx without swelling/skin changes. No sign of pilonidal cyst/abscess. Skin: Warm, dry with normal turgor. Normal color with no rashes, no lesions, and no evidence of cellulitis. MS/ Extremity: Pulses equal, no cyanosis. Neurovascular intact. Full, normal range of motion. Equal circumference. Neuro: Awake and alert, GCS 15, oriented to person, place, time, and situation. Cranial nerves II-XII grossly intact. Motor strength 5/5 in all extremities. Sensory grossly intact. 21:10 ECG was reviewed by the Attending Physician. rn Vital Signs: 21:02 BP 130 / 87; Pulse 84; Resp 15; Temp 97.3; Pulse Ox 100% on R/A; Weight 99.79 kg; st1 Height 5 ft. 2 in. (157.48 cm); Pain 10/10; 21:02 BP 130 / 87; Pulse 80; Resp 20; Pulse Ox 99% on R/A; tw5 22:22 BP 108 / 66; Pulse 73; Resp 10; Pulse Ox 96% on R/A; tw5 22:24 Pain 4/10; tw5 21:02 Body Mass Index 40.24 (99.79 kg, 157.48 cm) st1 MDM: 20:54 Patient medically screened. rn 22:36 Differential diagnosis: arthritis, fracture, sciatica, contusion, Herniated disc. Data rn reviewed: vital signs, nurses notes, lab test result(s), EKG, radiologic studies, plain films, and as a result, I will discharge patient. Counseling: I had a detailed discussion with the patient and/or guardian regarding: the historical points, exam findings, and any diagnostic results supporting the discharge/admit diagnosis, lab results, radiology results, the need for outpatient follow up, to return to the emergency department if symptoms worsen or persist or if there are any questions or concerns that arise at home. Response to treatment: the patient's symptoms have mildly improved after treatment, and as a result, I will discharge patient. Special discussion: I discussed with the patient/guardian in detail that at this point there is no indication for admission to the hospital. It is understood, however, that if the symptoms persist or worsen the patient needs to return immediately for re-evaluation. ED course: No acute findings regarding tailbone or chest pain, pain improved, will dc home with pcp f/u. . 10/02 21:02 Order name: CBC with Diff; Complete Time: 21:57 rn 10/02 21:02 Order name: Basic Metabolic Panel; Complete Time: 22:36 rn 10/02 21:02 Order name: Troponin High Sensitivity; Complete Time: 22:36 rn 10/02 21:02 Order name: XRAY Chest (1 view); Complete Time: 22:02 rn 10/02 21:02 Order name: XRAY Sacrum And Coccyx; Complete Time: 22:02 rn 10/02 21:02 Order name: IV Start; Complete Time: 21:19 rn 10/02 21:02 Order name: EKG; Complete Time: 21: rn 10/02 21:02 Order name: EKG - Nurse/Tech; Complete Time: 21: rn 10/02 21:02 Order name: Cardiac monitoring; Complete Time: 21: rn EC:10 Rate is 73 beats/min. Rhythm is regular. QRS [place] is Normal. NC interval is normal. QRS rn interval is normal. QT interval is normal. No Q waves. T waves are Normal. No ST changes noted. Clinical impression: Normal ECG. Interpreted by me. Reviewed by me. Administered Medications: 21:25 Drug: Zofran (Ondansetron) 4 mg Route: IVP; Site: left antecubital; kd3 22:24 Follow up: Response: No adverse reaction tw5 21:26 Drug: morphine 4 mg Route: IVP; Site: left antecubital; kd3 22:24 Follow up: Pain 4/10 Adult; Response: No adverse reaction; Pain is decreased; RASS: tw5 Alert and Calm (0) 21:55 Drug: Ativan (LORazepam) 1 mg Route: PO; kd3 22:24 Follow up: Response: No adverse reaction; Anxiety decreased tw5 Disposition Summary: 10/02/21 22:37 Discharge Ordered Location: Home rn Problem: chronic rn Symptoms: have improved rn Condition: Stable rn Diagnosis - Sacrococcygeal disorders, not elsewhere classified rn - Chest pain, unspecified rn Followup: rn - With: Private Physician - When: As needed - Reason: Recheck today's complaints, Re-evaluation by your physician Discharge Instructions: - Discharge Summary Sheet rn - Chronic Back Pain rn - Nonspecific Chest Pain, Adult rn Forms: - Medication Reconciliation Form rn - Thank You Letter rn - Antibiotic manager of internal - Prescription Opioid Use rn Signatures: Dispatcher [employer] Carmine Callejas MD MD rn Wood, Tiffany tw5 Jerri Can RN RN kd3 Sandra Sanchez, RN RN st1
[2021-10-03 00:45] VITALS: TEMP 97.3
[2021-10-03 00:46] VITALS: BP 108/66; O2SAT 96
--- NOTE | 2021-10-03 12:34 | EKG ---
Test Date: 2021-10-02 Test Time: 21:07:09 Grind Operator: TREVOR MEASUREMENT RESULTS: Intervals: Rate: 73 WI: 150 QRSD: 86 QT: 408 QTc: 449 Davin: P: 58 WI: 150 QRS: -14 T: 67 INTERPRETIVE STATEMENTS: Normal sinus rhythm Normal ECG Compared to ECG 04/19/2021 11:29:41 Sinus arrhythmia no longer present Myocardial infarct finding no longer present Electronically Signed On 10-03-21 12:33:07 CDT by Edgar Bazzi
== END 2021-10-02 22:52 | disposition home or self-care (01) ==
LOC: ER 20:45
DX: R07.9 Chest pain, unspecified (principal); M53.3 Sacrococcygeal disorders, not elsewhere classified; F17.210 Nicotine dependence, cigarettes, uncomplicated
CPT/HCPCS: 93005; 85025; 80048; 36415; 84484; 71045; 72220; 96375; 96374; 99285; J2405

== ENCOUNTER 2021-11-05 16:37 | Emergency (ER) | payer BC ==
[2021-11-05] MEDS ORDERED: NA CHLORIDE 0.9% 1,000 ML ONE (17:20)
[2021-11-05] MEDS ORDERED: METOCLOPRAMIDE 10 MG/2mL INJ ONE (17:20)
[2021-11-05] MEDS ORDERED: KETOROLAC 30 MG/ML INJ ONE (17:20)
[2021-11-05] MEDS ORDERED: DIPHENHYDRAMINE 50 MG/ML VIAL ONE (17:20)
--- NOTE | 2021-11-05 17:32 | RAD REPORT ---
EXAM DESCRIPTION: CT - Head Brain Wo Cont - 11/05/2021 5:24 pm CLINICAL HISTORY: Headache, chronic, new features or increased frequency COMPARISON: Head angio dated 10/04/2020; Head Brain Wo Cont dated 10/04/2020 TECHNIQUE: All CT scans are performed using dose optimization technique as appropriate and may inclu de automated exposure control or mA/KV adjustment according to patient size. FINDINGS: No intracranial hemorrhage, hydrocephalus or extra-axial fluid collection.No areas of brai n edema or evidence of midline shift. The paranasal sinuses and mastoids are clear. The calvarium is intact. IMPRESSION: No acute intracranial abnormality.
[2021-11-05] MEDS ORDERED: MORPHINE 4 MG/ML SYR ONE (18:16)
--- NOTE | 2021-11-05 19:31 | EDPHYS ---
Physician Documentation [facility] Name: Charity Hanks Age: 41 yrs Sex: Female : 1980 Arrival Date: 11/05/2021 Time: 16:39 Bed 5 Private MD: Aiden Rosen ED Physician Wilfredo Asencio HPI: 11/05 17:05 This 41 yrs old Female presents to ER via Ambulatory with complaints of Headache, pm1 Numbness - left side of head. 17:05 The patient complains of pain to the Both sides to the top of patient's head, numbness pm1 to the left side of head. The patient describes the headache as aching. Onset: The symptoms/episode began/occurred 2 day(s) ago. Associated signs and symptoms: Pertinent positives: nausea, Photophobia Pertinent negatives: fever, rash, vomiting. Severity of symptoms: in the emergency department the pain is actually worse. Headache History: Denies prior headaches. The symptoms are alleviated by Darkened room, the symptoms are aggravated by lights. The patient has not experienced similar symptoms in the past. The patient has not recently seen a physician. Historical: - Allergies: 17:00 No Known Allergies; ab2 - PMHx: 17:00 Anxiety; Hypercholesterolemia; manic; depressive disorder; Myocardial infarction; PTSD; ab2 - Immunization history:: Adult Immunizations up to date. - Social history:: Smoking status: Patient denies any tobacco usage or history of. ROS: 18:09 Constitutional: Negative for fever, chills, and weight loss, Cardiovascular: Negative pm1 for chest pain, palpitations, and edema, Respiratory: Negative for shortness of breath, cough, wheezing, and pleuritic chest pain, Abdomen/GI: Negative for abdominal pain, nausea, vomiting, diarrhea, and constipation, Back: Negative for injury and pain, MS/Extremity: Negative for injury and deformity, Skin: Negative for injury, rash, and discoloration. 18:09 Neuro: Positive for headache, to both sides of the top of her head with numbness to the top left side of her head, Negative for weakness. 18:09 All other systems are negative. Exam: 18:09 Constitutional: This is a well developed, well nourished patient who is awake, alert, pm1 and in no acute distress. Head/Face: Normocephalic, atraumatic. 18:09 Back: No spinal tenderness. No costovertebral tenderness. Full range of motion. 18:09 Skin: Warm, dry with normal turgor. Normal color with no rashes, no lesions, and no evidence of cellulitis. MS/ Extremity: Pulses equal, no cyanosis. Neurovascular intact. Full, normal range of motion. 18:09 Eyes: Exam is negative for acute changes, Pupils: no acute changes, Extraocular movements: no acute changes, Conjunctiva: no acute changes, no injection. 18:09 ENT: Exam is negative for acute changes, Mouth: no acute changes, Lips: normal, moist, Oral mucosa: normal, pink and intact, moist. 18:09 Neck: Exam negative for acute changes, External neck: is normal, C-spine: vertebral tenderness, is not appreciated, ROM/movement: no acute changes. 18:09 Cardiovascular: Exam negative for acute changes, Rate: normal, Rhythm: regular, Pulses: no pulse deficits are appreciated, Heart sounds: normal, normal S1and S2. 18:09 Respiratory: Exam negative for acute changes, respiratory distress, shortness of breath. 18:09 Abdomen/GI: Exam negative for acute changes, Inspection: obese Palpation: abdomen is soft and non-tender, in all quadrants. 18:09 Neuro: Orientation: is normal, Mentation: is normal, Cranial nerves: CN II- XII are normal as tested, Cerebellar function: normal finger to nose testing, Motor: moves all fours, strength is normal, strength is 5/5 in all extremities, Sensation: no obvious gross deficits, Gait: is steady, at a normal pace, without difficulty. Vital Signs: 16:58 BP 128 / 98; Pulse 95; Resp 18; Temp 98.1; Pulse Ox 100% ; Weight 95.25 kg; Height 5 ab2 ft. 2 in. (157.48 cm); Pain 10/10; 18:01 BP 119 / 82; Pulse 90; Resp 18 S; Pulse Ox 97% on R/A; jd3 19:11 BP 118 / 78; Pulse 87; Resp 17; Pulse Ox 99% on R/A; ab2 16:58 Body Mass Index 38.41 (95.25 kg, 157.48 cm) ab2 MDM: 16:58 Patient medically screened. pm1 17:04 Data reviewed: vital signs. Data interpreted: Pulse oximetry: on room air is 100 %. pm1 Interpretation: normal. 18:09 ED course: Patient is requesting narcotics for her headache, specifically asked for pm1 morphine despite telling her that it is quite possible that she could get a rebound headache with the narcotic. 19:28 Counseling: I had a detailed discussion with the patient and/or guardian regarding: the pm1 historical points, exam findings, and any diagnostic results supporting the discharge/admit diagnosis, radiology results, the need for outpatient follow up, a neurologist, to return to the emergency department if symptoms worsen or persist or if there are any questions or concerns that arise at home. 11/05 17:02 Order name: CT Head Brain wo Cont; Complete Time: 17:36 pm1 11/05 17:02 Order name: IV Saline Lock; Complete Time: 17:14 pm1 Administered Medications: 17:21 Drug: Reglan (metoCLOPramide) 10 mg Route: IVP; Site: left antecubital; ab2 19:59 Follow up: Response: No adverse reaction as6 17:21 Drug: Benadryl (diphenhydrAMINE) 25 mg Route: IVP; Site: left antecubital; ab2 19:59 Follow up: Response: No adverse reaction as6 17:21 Drug: Ketorolac 30 mg Route: IVP; Site: left antecubital; ab2 19:59 Follow up: Response: No adverse reaction as6 17:21 Drug: NS 0.9% 1000 ml Route: IV; Rate: 1000 ml; Site: left antecubital; ab2 20:00 Follow up: Response: No adverse reaction; IV Status: Completed infusion; IV Intake: as6 1000ml 18:15 Drug: morphine 4 mg Route: IVP; Site: left antecubital; jd3 20:00 Follow up: Response: No adverse reaction; RASS: Alert and Calm (0) as6 Disposition Summary: 11/05/21 19:30 Discharge Ordered Location: Home pm1 Problem: new pm1 Symptoms: have improved pm1 Condition: Stable pm1 Diagnosis - Headache pm1 Followup: pm1 - With: Emergency Department - When: As needed - Reason: Worsening of condition Followup: pm1 - With: Private Physician - When: 2 - 3 days - Reason: Recheck today's complaints, Continuance of care, Re-evaluation by your physician Discharge Instructions: - Discharge Summary Sheet pm1 - General Headache Without Cause pm1 Forms: - Medication Reconciliation Form pm1 - Thank You Letter pm1 - Antibiotic Education pm1 - Prescription Opioid Use pm1 Prescriptions: - [id number] - take 1 tablet by ORAL route every 4 hours As needed; 12 tablet; Refills: 0, pm1 Product Selection Permitted Signatures: Dispatcher [employer] Brina Salazar NP POLICE COMMUNICATIONS OPERATOR pm1 Leo Dupree, RN RN jd3 Ernie Aguillon Ashby RN as6
--- NOTE | 2021-11-05 19:31 | ER ---
Nurse's Notes [facility] Name: Charity Hanks Age: 41 yrs Sex: Female : 1980 Arrival Date: 11/05/2021 Time: 16:39 Bed 5 Private MD: Aiden Rosen Diagnosis: Headache Presentation: 11/05 16:58 Chief complaint: Patient states: "I have had a headache and numbness in my head for 2 ab2 days now but its getting worse.". Coronavirus screen: Vaccine status: Patient reports receiving the 2nd dose of the covid vaccine. Client denies travel out of the [place] in the last 14 days. At this time, the client does not indicate any symptoms associated with coronavirus-19. Ebola Screen: Patient negative for fever greater than or equal to 101.5 degrees Fahrenheit, and additional compatible Ebola Virus Disease symptoms Patient denies exposure to infectious person. Patient denies travel to an Ebola-affected area in the 21 days before illness onset. No symptoms or risks identified at this time. Initial Sepsis Screen: Does the patient meet any 2 criteria? No. Patient's initial sepsis screen is negative. Does the patient have a suspected source of infection? No. Patient's initial sepsis screen is negative. Risk Assessment: Do you want to hurt yourself or someone else? Patient reports no desire to harm self or others. Onset of symptoms is unknown. 16:58 Method Of Arrival: Ambulatory ab2 16:58 Acuity: CARLOS 3 ab2 Triage Assessment: 17:01 Headache History: Denies prior headaches. ab2 17:02 Pain: Pain currently is 10 out of 10 on a pain scale. Pain began 2-3 days ago. Also ab2 complains of nausea. Historical: - Allergies: 17:00 No Known Allergies; ab2 - PMHx: 17:00 Anxiety; Hypercholesterolemia; manic; depressive disorder; Myocardial infarction; PTSD; ab2 - Immunization history:: Adult Immunizations up to date. - Social history:: Smoking status: Patient denies any tobacco usage or history of. Screenin:01 Abuse screen: Denies threats or abuse. Denies injuries from another. Nutritional ab2 screening: No deficits noted. Tuberculosis screening: No symptoms or risk factors identified. Fall Risk None identified. Assessment: 17:00 General: Appears in no apparent distress. uncomfortable, Behavior is calm, cooperative, ab2 appropriate for age. Pain: Complains of pain in head. Neuro: Level of Consciousness is awake, alert, obeys commands, Oriented to person, place, time, situation, Appropriate for age Horticultural Farmer are equal bilaterally Moves all extremities. Gait is steady, Speech is normal, Facial symmetry appears normal, Intact. Neuro: Reports headache numbness. Neuro: Reports numbness in head. Cardiovascular: No deficits noted. Respiratory: Airway. GI: No deficits noted. No signs and/or symptoms were reported involving the gastrointestinal system. Abdomen is round non-distended, Bowel sounds present X 4 quads. : No deficits noted. No signs and/or symptoms were reported regarding the genitourinary system. EENT: No deficits noted. Derm: No deficits noted. Skin is intact, is healthy with good turgor. 18:00 Reassessment: Patient appears in no apparent distress at this time. Patient and/or jd3 family updated on plan of care and expected duration. Pain level reassessed. Patient is alert, oriented x 3, equal unlabored respirations, skin warm/dry/pink. pt reporting continued pain and asking for a stronger pain medication. provider notified. no new orders at this time. Vital Signs: 16:58 BP 128 / 98; Pulse 95; Resp 18; Temp 98.1; Pulse Ox 100% ; Weight 95.25 kg; Height 5 ab2 ft. 2 in. (157.48 cm); Pain 10/10; 18:01 BP 119 / 82; Pulse 90; Resp 18 S; Pulse Ox 97% on R/A; jd3 19:11 BP 118 / 78; Pulse 87; Resp 17; Pulse Ox 99% on R/A; ab2 16:58 Body Mass Index 38.41 (95.25 kg, 157.48 cm) ab2 ED Course: 16:39 Patient arrived in ED. am2 16:39 Aiden Rosen MD is Private Physician. am2 16:51 Brian Ashford NP is PHCP. pm1 16:51 Wilfredo Asencio MD is Attending Physician. pm1 16:58 Ernie Aguillon is Primary Nurse. ab2 16:59 Triage completed. ab2 17:01 Arm band placed on right wrist. ab2 17:01 Patient has correct armband on for positive identification. Bed in low position. Call ab2 light in reach. Side rails up X2. 17:26 CT Head Brain wo Cont In Process Unspecified. EDMS 19:59 No provider procedures requiring assistance completed. IV discontinued, intact, as6 bleeding controlled, No redness/swelling at site. Pressure dressing applied. Administered Medications: 17:21 Drug: Reglan (metoCLOPramide) 10 mg Route: IVP; Site: left antecubital; ab2 19:59 Follow up: Response: No adverse reaction as6 17:21 Drug: Benadryl (diphenhydrAMINE) 25 mg Route: IVP; Site: left antecubital; ab2 19:59 Follow up: Response: No adverse reaction as6 17:21 Drug: Ketorolac 30 mg Route: IVP; Site: left antecubital; ab2 19:59 Follow up: Response: No adverse reaction as6 17:21 Drug: NS 0.9% 1000 ml Route: IV; Rate: 1000 ml; Site: left antecubital; ab2 20:00 Follow up: Response: No adverse reaction; IV Status: Completed infusion; IV Intake: as6 1000ml 18:15 Drug: morphine 4 mg Route: IVP; Site: left antecubital; jd3 20:00 Follow up: Response: No adverse reaction; RASS: Alert and Calm (0) as6 Intake: 20:00 IV: 1000ml; Total: 1000ml. as6 Outcome: 19:30 Discharge ordered by MD. pm1 19:59 Discharged to home ambulatory. as6 19:59 Condition: stable 19:59 Discharge instructions given to patient, Instructed on discharge instructions, follow up and referral plans. medication usage, Demonstrated understanding of instructions, follow-up care, medications, Prescriptions given X 1. 20:00 Patient left the ED. as6 Signatures: Dispatcher [employer] EDMS Brian Ashford NP ABNORMAL PSYCHOLOGY TEACHER pm1 Becky Edgar am2 Leo Dupree RN RN jd3 Candido Handley RN RN as6 Ernie Aguillon ab2
[2021-11-05 20:46] VITALS: TEMP 98.1
[2021-11-05 20:49] VITALS: BP 118/78; O2SAT 99
== END 2021-11-05 20:00 | disposition home or self-care (01) ==
LOC: ER 16:37
DX: R51.9 Headache, unspecified (principal); F32.A Depression, unspecified
CPT/HCPCS: 96361; 70450; 96375; 96374; 99283; J2765; J1200; J7030

== ENCOUNTER 2021-12-06 18:49 | Emergency (ER) | payer BC ==
[2021-12-06 19:33] LABS: Urine Blood Negative (Negative); Urine Glucose Negative (Negative); Urine Protein Negative (Negative); Urine Specific Gravity 1.015 (1.005-1.030)
[2021-12-06 19:35] LABS: Absolute Lymphocytes (CBC) 2.8 K/uL (0.7-4.9); Hematocrit 47.1 % (36.0-45.0); Lymphocytes % 31.1 % (15.3-44.8); RBC Red Blood Cell Count 5.78 M/uL (3.86-4.86)
[2021-12-06 19:49] LABS: Potassium 3.8 mmol/L (3.5-5.1); Troponin High Sensitivity 3.4 pg/mL (<58.9)
[2021-12-06 19:52] LABS: Urine Bacteria <20 /HPF (<20); Urine RBC <5 /HPF (NONE SEEN)
--- NOTE | 2021-12-06 20:04 | RAD REPORT ---
EXAM DESCRIPTION: RAD - Chest Single View - 12/06/2021 7:35 pm CLINICAL HISTORY: CHEST PAIN COMPARISON: Chest Single View dated 10/02/2021; Chest Single View dated 04/19/2021; Chest Single View dated 04/14/2021; Chest Single View dated 01/09/2021 FINDINGS: Lines: None. Lungs: No evidence of edema or pneumonia. Pleural: No significant pleural effusions or pneumothorax. Cardiac: The heart size is within normal limits. Bones: No acute fractures. Other: IMPRESSION: No acute cardiopulmonary disease.
--- NOTE | 2021-12-06 21:13 | EDPHYS ---
Physician Documentation [facility] Name: Charity Hanks Age: 41 yrs Sex: Female : 1980 Arrival Date: 12/06/2021 Time: 18:52 Bed 11 Private MD: Aiden Rosen ED Physician Donato Murillo HPI: 12/06 21:12 This 41 yrs old Female presents to ER via Ambulatory with complaints of Chest Pain, pm1 Pain With Urination. 21:12 The patient or guardian reports chest pain that is located primarily in the anterior pm1 chest wall, bilaterally. 21:12 Onset: today. The pain does not radiate. Associated signs and symptoms: Pertinent pm1 positives: Burning with urination, Pertinent negatives: abdominal pain, cough, nausea, shortness of breath, vomiting. The chest pain is described as sharp. Duration: The patient or guardian reports a single episode, that is still ongoing. Modifying factors: The symptoms are alleviated by nothing. the symptoms are aggravated by cough, deep breath, movement, palpation of area. Severity of pain: in the emergency department the pain is unchanged. The patient has experienced similar episodes in the past, multiple times. The patient has not recently seen a physician. SAFETY RISK LEAD: 19:14 LMP N/A - control method ld1 Historical: - Allergies: 19:14 No Known Allergies; ld1 - PMHx: 19:14 Anxiety; depressive disorder; PTSD; Myocardial infarction; manic; Hypercholesterolemia; ld1 - PSHx: 19:14 None; ld1 - Immunization history:: Adult Immunizations up to date, Client reports having NOT received the Covid vaccine. - Social history:: Smoking status: Patient reports the use of cigarette tobacco products, smokes one-half pack cigarettes per day, Patient/guardian denies using alcohol. ROS: 21:12 Constitutional: Negative for fever, chills, and weight loss. pm1 21:12 Respiratory: Negative for shortness of breath, cough, wheezing, and pleuritic chest pain, Abdomen/GI: Negative for abdominal pain, nausea, vomiting, diarrhea, and constipation, Back: Negative for injury and pain. 21:12 MS/Extremity: Negative for injury and deformity, Skin: Negative for injury, rash, and discoloration, Neuro: Negative for headache, weakness, numbness, tingling, and seizure. 21:12 Cardiovascular: Positive for chest pain, Negative for edema, palpitations. 21:12 : Positive for burning with urination, Negative for urinary frequency, flank pain. 21:12 All other systems are negative. Exam: 21:12 Constitutional: This is a well developed, well nourished patient who is awake, alert, pm1 and in no acute distress. Head/Face: Normocephalic, atraumatic. 21:12 Back: No spinal tenderness. No costovertebral tenderness. Full range of motion. 21:12 Skin: Warm, dry with normal turgor. Normal color with no rashes, no lesions, and no evidence of cellulitis. MS/ Extremity: Pulses equal, no cyanosis. Neurovascular intact. Full, normal range of motion. 21:12 Eyes: Exam is negative for acute changes, Extraocular movements: no acute changes, Conjunctiva: normal, no injection. 21:12 ENT: Exam is negative for acute changes, Mouth: no acute changes, Lips: normal, moist, Oral mucosa: normal, pink and intact, moist. 21:12 Chest/axilla: Inspection: normal, Palpation: tenderness, that is mild, of the mid-sternal area, that totally reproduces the patient's complaints. 21:12 Cardiovascular: Exam negative for acute changes, Rate: normal, Rhythm: regular, Pulses: no pulse deficits are appreciated, Heart sounds: normal, normal S1and S2. 21:12 Respiratory: Exam negative for acute changes, respiratory distress, shortness of breath, Breath sounds: are clear throughout. 21:12 Abdomen/GI: Exam negative for acute changes, Inspection: abdomen appears normal, Palpation: abdomen is soft and non-tender, in all quadrants. 21:12 Neuro: Exam negative for acute changes, Orientation: is normal, Mentation: is normal, Motor: is normal, moves all fours. Vital Signs: 19:13 BP 126 / 63; Pulse 77; Resp 18; Temp 97.6(TE); Pulse Ox 98% on R/A; Weight 97.52 kg; ld1 Height 5 ft. 7 in. (170.18 cm); Pain 8/10; 21:00 BP 135 / 87; Pulse 91; Resp 16; Pulse Ox 95% ; fu 21:30 BP 135 / 68; Pulse 71; Resp 16; Temp 98.1(O); Pulse Ox 96% on R/A; Pain 5/10; fu 19:13 Body Mass Index 33.67 (97.52 kg, 170.18 cm) ld1 MDM: 21:05 Patient medically screened. pm1 21:12 Data reviewed: vital signs. Data interpreted: Pulse oximetry: on room air is 98 %. pm1 Interpretation: normal. Counseling: I had a detailed discussion with the patient and/or guardian regarding: the historical points, exam findings, and any diagnostic results supporting the discharge/admit diagnosis, lab results, radiology results, the need for outpatient follow up, to return to the emergency department if symptoms worsen or persist or if there are any questions or concerns that arise at home. 12/06 19:12 Order name: Basic Metabolic Panel; Complete Time: 20:39 ld1 12/06 19:12 Order name: CBC with Diff; Complete Time: 20:39 1 12/06 19:12 Order name: Troponin HS; Complete Time: 20:39 [facility] 12/06 19:12 Order name: Urine Microscopic Only; Complete Time: 20:39 ld1 12/06 19:12 Order name: Urine Culture [facility] 12/06 19:33 Order name: Urine Dipstick-Ancillary; Complete Time: 20:39 [facility] 12/06 19:12 Order name: XRAY Chest (1 view); Complete Time: 20:39 ld1 12/06 19:12 Order name: EKG; Complete Time: 19:13 ld1 12/06 19:12 Order name: Cardiac monitoring; Complete Time: 20:57 [facility] 12/06 19:12 Order name: EKG - Nurse/Tech; Complete Time: 19:12 [facility] 12/06 19:12 Order name: IV Saline Lock; Complete Time: 19:12 1 12/06 19:37 Order name: Urine --Ancillary (enter results) 2 12/06 19:12 Order name: Labs collected and sent; Complete Time: 19:12 12/06 19:12 Order name: O2 Per Protocol; Complete Time: 20:57 1 12/06 19:12 Order name: O2 Sat Monitoring; Complete Time: 20:57 [facility] 12/06 19:12 Order name: Urine Dipstick-Ancillary (obtain specimen); Complete Time: 20:23 ld1 Administered Medications: 21:37 Drug: Zofran (Ondansetron) 4 mg Route: IVP; Site: right upper arm; fu 22:37 Follow up: Response: No adverse reaction fu 21:38 Drug: morphine 4 mg Route: IVP; Infused Over: 4 mins; Site: right upper arm; fu 22:08 Follow up: Response: Pain is decreased fu Disposition: 12/07 02:07 Co-signature as Attending Physician, Donato Murillo MD. [facility] Disposition Summary: 12/06/21 21:13 Discharge Ordered Location: Home pm1 Problem: new pm1 Symptoms: have improved pm1 Condition: Stable pm1 Diagnosis - Chest pain, unspecified pm1 - Dysuria pm1 Followup: pm1 - With: Emergency Department - When: As needed - Reason: Worsening of condition Followup: pm1 - With: Private Physician - When: 2 - 3 days - Reason: Recheck today's complaints, Continuance of care, Re-evaluation by your physician Discharge Instructions: - Discharge Summary Sheet pm1 - Nonspecific Chest Pain, Adult pm1 - Dysuria pm1 Forms: - Medication Reconciliation Form pm1 - Thank You Letter pm1 - Antibiotic Education pm1 - Prescription Opioid Use pm1 Signatures: Dispatcher [employer] EDMS Brian Ashford, [employer]IC[employer] SWIMMING POOL ATTENDANT pm1 Donovan Escobedo, RN JAMES Donato Murillo MD MD [facility] Ayah Tadeo RN RN 1
--- NOTE | 2021-12-06 21:13 | ER ---
Nurse's Notes [facility] Name: Charity Hanks Age: 41 yrs Sex: Female : 1980 Arrival Date: 12/06/2021 Time: 18:52 Bed 11 Private MD: Aiden Rosen Diagnosis: Chest pain, unspecified;Dysuria Presentation: 12/06 19:13 Chief complaint: Patient states: Chest pain since 1300. Coronavirus screen: At this ld1 time, the client does not indicate any symptoms associated with coronavirus-19. Ebola Screen: No symptoms or risks identified at this time. Initial Sepsis Screen: Does the patient meet any 2 criteria? No. Patient's initial sepsis screen is negative. Does the patient have a suspected source of infection? No. Patient's initial sepsis screen is negative. Risk Assessment: Do you want to hurt yourself or someone else? Patient reports no desire to harm self or others. Onset of symptoms was December 06, 2021. 19:13 Method Of Arrival: Ambulatory ld1 19:13 Acuity: CARLOS 3 ld1 Triage Assessment: 19:14 General: Appears in no apparent distress. comfortable, Behavior is calm, cooperative, ld1 appropriate for age. Pain: Complains of pain in chest Pain does not radiate. Pain currently is 8 out of 10 on a pain scale. Quality of pain is described as throbbing. EENT: No signs and/or symptoms were reported regarding the EENT system. Neuro: Level of Consciousness is awake, alert, obeys commands, Oriented to person, place, time, situation. Cardiovascular: Capillary refill < 3 seconds Patient's skin is warm and dry. Respiratory: Airway is patent Respiratory effort is even, unlabored. GI: Abdomen is round non-distended. MANAGER IN TRAINING: 19:14 LMP N/A - control method ld1 Historical: - Allergies: 19:14 No Known Allergies; ld1 - PMHx: 19:14 Anxiety; depressive disorder; PTSD; Myocardial infarction; manic; Hypercholesterolemia; ld1 - PSHx: 19:14 None; ld1 - Immunization history:: Adult Immunizations up to date, Client reports having NOT received the Covid vaccine. - Social history:: Smoking status: Patient reports the use of cigarette tobacco products, smokes one-half pack cigarettes per day, Patient/guardian denies using alcohol. Screenin:30 Abuse screen: Denies threats or abuse. Nutritional screening: No deficits noted. fu Tuberculosis screening: No symptoms or risk factors identified. Fall Risk None identified. Assessment: 21:30 General: Appears in no apparent distress. Behavior is calm, cooperative, appropriate fu for age. Pain: Complains of pain in mid-sternal area Pain does not radiate. Pain currently is 10 out of 10 on a pain scale. Neuro: Level of Consciousness is awake, alert, obeys commands, Oriented to person, place, time, situation, Moves all extremities. Gait is steady, Speech is normal, Facial symmetry appears normal. Cardiovascular: Reports chest pain, Denies diaphoresis, lightheadedness, syncope. Respiratory: Respiratory effort is even, unlabored, Respiratory pattern is regular. Derm: Skin is intact. Musculoskeletal: Range of motion: intact in all extremities. 21:30 Pain: Pain began at 1300 today. fu Vital Signs: 19:13 BP 126 / 63; Pulse 77; Resp 18; Temp 97.6(TE); Pulse Ox 98% on R/A; Weight 97.52 kg; ld1 Height 5 ft. 7 in. (170.18 cm); Pain 8/10; 21:00 BP 135 / 87; Pulse 91; Resp 16; Pulse Ox 95% ; fu 21:30 BP 135 / 68; Pulse 71; Resp 16; Temp 98.1(O); Pulse Ox 96% on R/A; Pain 5/10; fu 19:13 Body Mass Index 33.67 (97.52 kg, 170.18 cm) ld1 ED Course: 18:52 Patient arrived in ED. am2 18:52 Aiden Rosen MD is Private Physician. am2 19:13 Inserted saline lock: 20 gauge in right upper arm, using aseptic technique. Blood ld1 collected. 19:14 Triage completed. ld1 19:14 Arm band placed on right wrist. EKG completed in triage. Results shown to MD. ld1 19:37 XRAY Chest (1 view) In Process Unspecified. EDMS 20:38 Brian Ashford NP is PHCP. pm1 20:38 Donato Murillo MD is Attending Physician. pm1 20:56 Donovan Escobedo, JAMES is Primary Nurse. fu 21:50 Patient maintains SpO2 saturation greater than 95% on room air. fu 21:50 Patient has correct armband on for positive identification. Bed in low position. Call fu light in reach. Side rails up X 1. 21:50 laboratory monitor on. Pulse ox on. NIBP on. fu 21:59 No provider procedures requiring assistance completed. IV discontinued, bleeding fu controlled, Pressure dressing applied. Administered Medications: 21:37 Drug: Zofran (Ondansetron) 4 mg Route: IVP; Site: right upper arm; fu 22:37 Follow up: Response: No adverse reaction fu 21:38 Drug: morphine 4 mg Route: IVP; Infused Over: 4 mins; Site: right upper arm; fu 22:08 Follow up: Response: Pain is decreased fu Medication: 21:40 VIS not applicable for this client. fu Outcome: 21:13 Discharge ordered by MD. pm1 21:59 Discharged to home ambulatory. fu 21:59 Condition: good 21:59 Discharge instructions given to patient, Instructed on discharge instructions, follow up and referral plans. Demonstrated understanding of instructions, follow-up care, Prescriptions given X 0 22:01 Patient left the ED. fu Signatures: Dispatcher [employer] EDMS Brian Ashford NP SAND CONTROL WORKER pm1 Becky Edgar am2 Donovan Escobedo, RN RN Ayah Tadeo RN RN ld1 Corrections: (The following items were deleted from the chart) 0602 02:04 06/01 22:00 BP 135 / 68; Pulse 71bpm; Resp 16bpm; Pulse Ox 96% RA; Temp 98.1F Oral; fu Pain 5/10; fu
[2021-12-06] MEDS ORDERED: MORPHINE 4 MG/ML SYR ONE (21:31)
[2021-12-06] MEDS ORDERED: ONDANSETRON 4 MG/2 ML VIAL ONE (21:31)
[2021-12-06 22:14] LABS: Urine Specific Gravity/Preg 1.015 (1.005-1.030)
[2021-12-06 22:38] VITALS: BP 126/63; TEMP 97.6; O2SAT 98
--- NOTE | 2021-12-07 13:45 | EKG ---
Test Date: 2021-12-06 Test Time: 18:56:37 Health Actuary: ADARSH MEASUREMENT RESULTS: Intervals: Rate: 82 MD: 144 QRSD: 78 QT: 260 QTc: 303 [place]: P: 48 MD: 144 QRS: 149 T: 7 INTERPRETIVE STATEMENTS: Normal sinus rhythm Right atrial enlargement Low voltage QRS Left posterior fascicular block Nonspecific T wave abnormality Abnormal ECG Compared to ECG 12/06/2021 18:55:23 Atrial abnormality now present Low QRS voltage now present Left posterior fascicular block now present T-wave abnormality now present Electronically Signed On 12-07-21 13:44:54 CDT by Neil Arthur
--- NOTE | 2021-12-07 13:46 | EKG ---
Test Date: 2021-12-06 Test Time: 18:55:23 Motor Pool Driver: ADARSH MEASUREMENT RESULTS: Intervals: Rate: 0 OR: QRSD: 0 QT: 0 QTc: 0 [place]: P: OR: QRS: 0 T: 0 INTERPRETIVE STATEMENTS: No QRS complexes found, no ECG analysis possible Electronically Signed On 12-07-21 13:45:03 CDT by Neil Arthur
== END 2021-12-06 22:01 | disposition home or self-care (01) ==
LOC: ER 18:49
DX: R07.9 Chest pain, unspecified (principal); R30.0 Dysuria; F17.210 Nicotine dependence, cigarettes, uncomplicated; I25.2 Old myocardial infarction
CPT/HCPCS: 93005 ×2; 87088; 85025; 87086; 80048; 36415; 81025; 84484; 71045; 96375; 96374; 99285; J2405; 81003; 81015

== ENCOUNTER 2022-01-11 15:18 | Emergency (ER) | payer BC ==
[2022-01-11 16:06] LABS: Absolute Lymphocytes (CBC) 2.2 K/uL (0.7-4.9); Hematocrit 40.7 % (36.0-45.0); Lymphocytes % 27.2 % (15.3-44.8); MCV 79.9 fL (80-100); MPV 7.4 fL (7.6-11.3); RBC Red Blood Cell Count 5.09 M/uL (3.86-4.86)
[2022-01-11 16:10] LABS: Protime INR 0.99
[2022-01-11] MEDS ORDERED: MORPHINE 4 MG/ML SYR ONE ×2 (16:12→20:10)
[2022-01-11] MEDS ORDERED: ONDANSETRON 4 MG/2 ML VIAL ONE (16:12)
[2022-01-11 16:26] LABS: ALT/SGPT 26 U/L (12-78); AST/SGOT 10 U/L (15-37); Albumin 3.2 g/dL (3.4-5.0); Alkaline Phosphatase 65 U/L (45-117); BUN Blood Urea Nitrogen 10 mg/dL (7-18); Bicarbonate 21 mmol/L (21-32); Bilirubin Total 0.2 mg/dL (0.2-1.0); Glomerular Filtration Rate 96 ml/min (=/>90); Glucose Level 129 mg/dL (74-106); Lipase 128 U/L (73-393); NT PRO-BNP 82 pg/mL (<125); Potassium 3.5 mmol/L (3.5-5.1); Protein, Total 6.5 g/dL (6.4-8.2); Sodium Level 140 mmol/L (136-145)
[2022-01-11 16:58] LABS: Urine Blood Negative (Negative); Urine Glucose Negative (Negative); Urine Protein Negative (Negative)
[2022-01-11 17:04] LABS: Bilirubin Direct < 0.1 mg/dL (0-0.2); Troponin High Sensitivity < 3.0 pg/mL (<58.9)
[2022-01-11] MEDS ORDERED: FENTANYL CITR 100 MCG/2 ML ONE (17:28)
--- NOTE | 2022-01-11 18:06 | RAD REPORT ---
EXAM DESCRIPTION: CT - Chest For Pe Angio - 01/11/2022 5:47 pm CLINICAL HISTORY: Chest pain COMPARISON: 2020 TECHNIQUE: Dynamically enhanced axial 3 mm thick images of the chest were obtained during administra tion of <100> mL Isovue 370 IV contrast. Coronal and oblique reconstruction images were generated and reviewed. Exam utilizes a protocol for optimal evaluation of pulmonary arterial tree. Maximum intensity projections 3D imaging was utilized All CT scans are performed using dose optimization technique as appropriate and may include automated exposure control or mA/KV adjustment according to patient size. FINDINGS: A pulmonary embolus is not seen. A thoracic aortic aneurysm is not noted. A pleural effusion is not seen. A pericardial effusion is not seen. A lung consolidation is not present. IMPRESSION: Negative for a pulmonary embolism.
--- NOTE | 2022-01-11 18:06 | RAD REPORT ---
EXAM DESCRIPTION: Akiko Single View01/11/2022 4:53 pm CLINICAL HISTORY: Chest pain COMPARISON: December 2021 FINDINGS: The lungs appear clear of acute infiltrate. The heart is normal size IMPRESSION: No acute abnormalities displayed
--- NOTE | 2022-01-11 18:10 | RAD REPORT ---
EXAM DESCRIPTION: CT - Abdomen Pelvis W Contrast - 01/11/2022 5:47 pm CLINICAL HISTORY: Abdominal pain COMPARISON: 2020 TECHNIQUE: Computed axial tomography of the abdomen pelvis was obtained. 100 cc Isovue-300 was admin istered intravenously. Oral contrast was not requested which limits evaluation of bowel and appendix All CT scans are performed using dose optimization technique as appropriate and may include automated exposure control or mA/KV adjustment according to patient size. FINDINGS: The liver, spleen, pancreas, adrenal and kidneys appear unremarkable. There is no evidence of diverticulitis. Normal appendix No adnexal mass IMPRESSION: No acute abnormality is displayed.
--- NOTE | 2022-01-11 20:07 | EDPHYS ---
Physician Documentation [facility] Name: Charity Hanks Age: 41 yrs Sex: Female : 1980 Arrival Date: 01/11/2022 Time: 15:20 Bed 2 Private MD: ED Physician Francis Elias HPI: 01/11 19:59 This 41 yrs old Female presents to ER via Ambulatory with complaints of Chest Pain, jmm Abdominal Pain. 19:59 The patient or guardian reports chest pain that is located primarily in the substernal jmm area. Onset: gradually. The pain does not radiate. Associated signs and symptoms: Pertinent positives: abdominal pain. The chest pain is described as aching. Duration: The patient or guardian reports a single episode, that is still ongoing. This is a 41 year old female with a history of anxiety, depression that presents to the ED with complaints of right sided abdominal pain for 2 weeks with substernal chest pain beginning approx 2 weeks ago. . Historical: - Allergies: 15:36 No Known Allergies; ss - PMHx: 15:36 Anxiety; depressive disorder; Hypercholesterolemia; manic; Myocardial infarction; PTSD; ss - PSHx: 15:36 Tonsillectomy; Cholecystectomy; ss ROS: 19:59 Constitutional: Negative for fever, chills, and weight loss, Respiratory: Negative for jmm shortness of breath, cough, wheezing, and pleuritic chest pain. 19:59 Abdomen/GI: Negative for abdominal pain, nausea, vomiting, diarrhea, and constipation. 19:59 Cardiovascular: Positive for chest pain. 19:59 All other systems are negative. Exam: 19:59 Head/Face: atraumatic. Eyes: EOMI, no conjunctival erythema appreciated ENT: Moist jmm Mucus Membranes Neck: Trachea midline, Supple Chest/axilla: Normal chest wall appearance and motion. Cardiovascular: Regular rate and rhythm. No edema appreciated Respiratory: Normal respirations, no respiratory distress appreciated 19:59 Back: Normal ROM Skin: General appearance color normal MS/ Extremity: Moves all extremities, no obvious deformities appreciated, no edema noted to the lower extremities Neuro: Awake and alert Psych: Behavior is normal, Mood is normal, Patient is cooperative and pleasant 19:59 Constitutional: The patient appears alert, awake, uncomfortable. 19:59 Abdomen/GI: Inspection: abdomen appears normal, Bowel sounds: normal, Palpation: soft, mild abdominal tenderness, in the right upper quadrant and right lower quadrant. Vital Signs: 15:34 BP 121 / 86; Pulse 96; Resp 16; Temp 97.8(TE); Pulse Ox 96% on R/A; Weight 104.33 kg; ss Height 5 ft. 2 in. (157.48 cm); Pain 9/10; 16:30 BP 117 / 74; Pulse 86; Resp 16 S; Pulse Ox 96% on R/A; aa5 17:30 BP 131 / 86; Pulse 87; Resp 16 S; Pulse Ox 97% on R/A; aa5 19:45 BP 108 / 74; Pulse 75; Resp 20; Pulse Ox 98% on R/A; Pain 9/10; lp1 15:34 Body Mass Index 42.07 (104.33 kg, 157.48 cm) ss MDM: 15:34 Patient medically screened. [facility] 20:06 Data reviewed: vital signs, nurses notes. [facility] 20:06 Counseling: I had a detailed discussion with the patient and/or guardian regarding: the [facility] historical points, exam findings, and any diagnostic results supporting the discharge/admit diagnosis, lab results, radiology results, the need for outpatient follow up, to return to the emergency department if symptoms worsen or persist or if there are any questions or concerns that arise at home. 01/11 15:35 Order name: Basic Metabolic Panel; Complete Time: 17:05 [facility] 01/11 15:35 Order name: CBC with Diff; Complete Time: 16:11 [facility] 01/11 15:35 Order name: LFT's; Complete Time: 17:05 [facility] 01/11 15:35 Order name: Magnesium; Complete Time: 17:05 [facility] 01/11 15:35 Order name: NT PRO-BNP; Complete Time: 17:05 [facility] 01/11 15:35 Order name: PT-INR; Complete Time: 16:11 [facility] 01/11 15:35 Order name: Troponin HS; Complete Time: 17:05 [facility] 01/11 15:35 Order name: XRAY Chest (1 view); Complete Time: 18:08 [facility] 01/11 15:36 Order name: Lipase; Complete Time: 17:05 [facility] 01/11 15:49 Order name: SARS-COV-2 RT PCR (Document "Date of Onset" if Symptomatic); Complete Time: [facility] 17:33 01/11 16:48 Order name: CT Chest For PE Angio; Complete Time: 18:08 [facility] 01/11 16:58 Order name: Urine Dipstick-Ancillary; Complete Time: 17:01 [facility] 01/11 17:02 Order name: Urine --Ancillary (enter results); Complete Time: 19:04 dh3 01/11 18:17 Order name: Troponin High Sensitivity; Complete Time: 20:06 [facility] 01/11 15:35 Order name: EKG; Complete Time: 15:36 [facility] 01/11 15:35 Order name: Cardiac monitoring; Complete Time: 15:58 [facility] 01/11 15:35 Order name: EKG - Nurse/Tech; Complete Time: 15:58 [facility] 01/11 15:35 Order name: IV Saline Lock; Complete Time: 15:58 [facility] 01/11 15:35 Order name: Labs collected and sent; Complete Time: 15:58 [facility] 01/11 15:35 Order name: O2 Per Protocol; Complete Time: 15:58 [facility] 01/11 15:35 Order name: O2 Sat Monitoring; Complete Time: 15:58 [facility] 01/11 15:57 Order name: Urine Dipstick-Ancillary (obtain specimen); Complete Time: 17:25 [facility] 01/11 15:57 Order name: Urine Test (obtain specimen); Complete Time: 17:25 [facility] 01/11 16:48 Order name: CT Abd/Pelvis - IV Contrast Only; Complete Time: 18:17 jm Administered Medications: 16:05 Drug: morphine 4 mg Route: IVP; Infused Over: 4 mins; Site: right upper arm; aa5 16:10 Follow up: Response: No adverse reaction aa5 16:05 Drug: Zofran (Ondansetron) 4 mg Route: IVP; Site: right upper arm; aa5 16:10 Follow up: Response: No adverse reaction aa5 17:25 Drug: fentaNYL (PF) 50 mcg Route: IVP; Site: right upper arm; aa5 17:30 Follow up: Response: No adverse reaction aa5 20:10 Drug: morphine 4 mg {Note: AVELINA.} Route: IVP; Infused Over: 4 mins; Site: Other; lp1 20:34 Follow up: Response: Pain is decreased lp1 Disposition: 01/12 13:55 Co-signature as Attending Physician, Francis Elias DO I was immediately available on-site ms3 in the Emergency Department for consultation in the care of the patient.. Disposition Summary: 01/11/22 20:07 Discharge Ordered Location: Home jmm Condition: Stable jmm Diagnosis - Abdominal pain, unspecified jmm - Chest pain, unspecified jmm Followup: jm - With: Private Physician - When: 2 - 3 days - Reason: Recheck today's complaints, Continuance of care, Re-evaluation by your physician Discharge Instructions: - Discharge Summary Sheet jmm - Abdominal Pain, Adult jmm Forms: - Medication Reconciliation Form jmm - Thank You Letter jmm - Antibiotic Education jmm - Prescription Opioid Use jm Signatures: Dispatcher [employer] Henry Gtz PA PA jmm Calderon, Audri, RN RN aa5 Sanjana Redd RN RN ss Pena, Laura, RN RN lp1 Francis Elias DO DO ms3
--- NOTE | 2022-01-11 20:07 | ER ---
Nurse's Notes [facility] Name: Charity Hanks Age: 41 yrs Sex: Female : 1980 Arrival Date: 01/11/2022 Time: 15:20 Bed 2 Private MD: Diagnosis: Abdominal pain, unspecified;Chest pain, unspecified Presentation: 01/11 15:34 Chief complaint: Patient states: RLQ pain x 3 days and chest pain that began 1 hour ss ago. Coronavirus screen: Client denies travel out of the [place] in the last 14 days. Ebola Screen: Patient denies exposure to infectious person. Patient denies travel to an Ebola-affected area in the 21 days before illness onset. Initial Sepsis Screen: Does the patient meet any 2 criteria? No. Patient's initial sepsis screen is negative. Does the patient have a suspected source of infection? No. Patient's initial sepsis screen is negative. Risk Assessment: Do you want to hurt yourself or someone else? Patient reports no desire to harm self or others. Onset of symptoms was January 11, 2022. 15:34 Method Of Arrival: Ambulatory ss 15:34 Acuity: CARLOS 3 ss Historical: - Allergies: 15:36 No Known Allergies; ss - PMHx: 15:36 Anxiety; depressive disorder; Hypercholesterolemia; manic; Myocardial infarction; PTSD; ss - PSHx: 15:36 Tonsillectomy; Cholecystectomy; ss Screenin:40 Abuse screen: Denies threats or abuse. Nutritional screening: No deficits noted. aa5 Tuberculosis screening: No symptoms or risk factors identified. Fall Risk None identified. Assessment: 15:40 General: Appears uncomfortable, Behavior is calm, cooperative. Pain: Complains of pain aa5 in umbilical area and right upper quadrant and chest Pain does not radiate. Pain currently is 9 out of 10 on a pain scale. Quality of pain is described as sharp, Pain began abd pain x 3 days and chest pain today. Neuro: Level of Consciousness is awake, alert, obeys commands, Oriented to person, place, time, situation. Cardiovascular: Heart tones S1 S2 present Rhythm is regular. Respiratory: Airway is patent Respiratory effort is even, unlabored, Respiratory pattern is regular, symmetrical, Breath sounds are clear bilaterally. GI: Abdomen is round non-distended, Bowel sounds present X 4 quads. Abd is soft and non tender X 4 quads. Reports nausea, Patient currently denies vomiting. : No signs and/or symptoms were reported regarding the genitourinary system. EENT: No signs and/or symptoms were reported regarding the EENT system. Derm: Skin is pink, warm \T\ dry. Musculoskeletal: Range of motion: intact in all extremities. 16:05 Reassessment: Patient is alert, oriented x 3, equal unlabored respirations, skin aa5 warm/dry/pink. 17:25 Reassessment: Patient is alert, oriented x 3, equal unlabored respirations, skin aa5 warm/dry/pink. 18:00 Reassessment: Patient is alert, oriented x 3, equal unlabored respirations, skin aa5 warm/dry/pink. Patient states feeling better. Patient states symptoms have improved. 18:00 Pain: Pain currently is 7 out of 10 on a pain scale. aa5 19:40 Reassessment: Patient reports continued pain to abdomen, rated 9/10, cramp-like; lp1 Provider notified that patient reports Morphine help relieve pain. 20:34 Reassessment: Patient is alert, oriented x 3, equal unlabored respirations, skin lp1 warm/dry/pink. Patient reports readiness for discharge Patient states feeling better. Patient states symptoms have improved. Vital Signs: 15:34 BP 121 / 86; Pulse 96; Resp 16; Temp 97.8(TE); Pulse Ox 96% on R/A; Weight 104.33 kg; ss Height 5 ft. 2 in. (157.48 cm); Pain 9/10; 16:30 BP 117 / 74; Pulse 86; Resp 16 S; Pulse Ox 96% on R/A; aa5 17:30 BP 131 / 86; Pulse 87; Resp 16 S; Pulse Ox 97% on R/A; aa5 19:45 BP 108 / 74; Pulse 75; Resp 20; Pulse Ox 98% on R/A; Pain 9/10; lp1 15:34 Body Mass Index 42.07 (104.33 kg, 157.48 cm) ED Course: 15:20 Patient arrived in ED. rg4 15:22 Henry Mclain PA is PHCP. denise 15:22 Francis Elias DO is Attending Physician. denise 15:28 Yamileth Jolly, JAMES is Primary Nurse. aa5 15:28 Arm band placed on Patient placed in an exam room, on a stretcher. ll1 15:36 Triage completed. ss 15:40 Patient has correct armband on for positive identification. Placed in gown. Bed in low aa5 position. Call light in reach. Side rails up X2. Client placed on continuous cardiac and pulse oximetry monitoring. NIBP monitoring applied. 15:40 Patient maintains SpO2 saturation greater than 95% on room air. aa5 15:48 Missed attempt(s): 22 gauge in right upper arm. Bleeding controlled, band aid applied, aa5 catheter tip intact. 15:50 Initial lab(s) drawn, by me, sent to lab. Inserted saline lock: 22 gauge in right upper aa5 arm, using aseptic technique. Blood collected. 16:55 XRAY Chest (1 view) In Process Unspecified. EDMS 17:49 CT Chest For PE Angio In Process Unspecified. EDMS 17:49 CT Abd/Pelvis - IV Contrast Only In Process Unspecified. EDMS 19:05 Report given to JAMES Garcia and JAMES Guthrie. aa5 19:40 Repeat lab(s) drawn. by me, sent to lab. lp1 20:34 No provider procedures requiring assistance completed. IV discontinued, No lp1 redness/swelling at site. Pressure dressing applied. Administered Medications: 16:05 Drug: morphine 4 mg Route: IVP; Infused Over: 4 mins; Site: right upper arm; aa5 16:10 Follow up: Response: No adverse reaction aa5 16:05 Drug: Zofran (Ondansetron) 4 mg Route: IVP; Site: right upper arm; aa5 16:10 Follow up: Response: No adverse reaction aa5 17:25 Drug: fentaNYL (PF) 50 mcg Route: IVP; Site: right upper arm; aa5 17:30 Follow up: Response: No adverse reaction aa5 20:10 Drug: morphine 4 mg {Note: AVELINA.} Route: IVP; Infused Over: 4 mins; Site: Other; lp1 20:34 Follow up: Response: Pain is decreased lp1 Medication: 20:04 VIS not applicable for this client. lp1 Outcome: 20:07 Discharge ordered by . osvaldo 20:34 Discharged to home ambulatory, with friend. lp1 20:34 Condition: good 20:34 Discharge instructions given to patient, Instructed on discharge instructions, follow up and referral plans. Demonstrated understanding of instructions, follow-up care. 20:35 Patient left the ED. lp1 Signatures: Dispatcher [employer] EDMS Henry Mclain PA PA jmm Calderon, Audri, RN RN aa5 Sanjana Redd RN RN ss Radha Lopez RN RN lp1 Deisy Shah4 Sandra Wiseman RN RN ll1
[2022-01-11 21:24] VITALS: TEMP 97.8
[2022-01-11 21:29] VITALS: BP 108/74; O2SAT 98
--- NOTE | 2022-01-15 14:00 | EKG ---
Test Date: 2022-01-11 Test Time: 15:55:58 Scrum Coach: SANDRA MEASUREMENT RESULTS: Intervals: Rate: 86 RI: 150 QRSD: 82 QT: 374 QTc: 447 Ruth: P: 31 RI: 150 QRS: -38 T: 23 INTERPRETIVE STATEMENTS: Sinus rhythm with fusion complexes Possible Left atrial enlargement Left axis deviation Pulmonary disease pattern Abnormal ECG Compared to ECG 12/06/2021 18:56:37 Fusion complex(es) now present Left-axis deviation now present Left posterior fascicular block no longer present T-wave abnormality no longer present Electronically Signed On 01-15-22 13:52:24 CDT by Neil Arthur
== END 2022-01-11 20:35 | disposition home or self-care (01) ==
LOC: ER 15:18
DX: R07.89 Other chest pain (principal); R10.9 Unspecified abdominal pain; I25.2 Old myocardial infarction; F41.9 Anxiety disorder, unspecified; F32.A Depression, unspecified; Z20.822 Contact with and (suspected) exposure to COVID-19
CPT/HCPCS: 93005; 85025; 80048; 36415; 83735; 81025; 85610; 80076; 81003; 84484 ×2; 83690; 83880; 71275; 74177; 71045; U0003; Q9967; J3010; J2405

== ENCOUNTER 2022-01-19 16:26 | Emergency (ER) | payer BC ==
[2022-01-19 18:27] LABS: Absolute Lymphocytes (CBC) 1.8 K/uL (0.7-4.9); Hematocrit 40.9 % (36.0-45.0); Lymphocytes % 41.3 % (15.3-44.8); MPV 8.1 fL (7.6-11.3); RBC Red Blood Cell Count 5.05 M/uL (3.86-4.86)
--- NOTE | 2022-01-19 18:38 | RAD REPORT ---
EXAM DESCRIPTION: Akiko Single View01/19/2022 6:23 pm CLINICAL HISTORY: Chest pain COMPARISON: January 11, 2022 FINDINGS: The lungs appear clear of acute infiltrate. The heart is normal size IMPRESSION: No acute abnormalities displayed
[2022-01-19 18:45] LABS: BUN Blood Urea Nitrogen 10 mg/dL (7-18); Bicarbonate 21 mmol/L (21-32); Glomerular Filtration Rate 94 ml/min (=/>90); Glucose Level 110 mg/dL (74-106); NT PRO-BNP 15 pg/mL (<125); Sodium Level 141 mmol/L (136-145)
[2022-01-19 18:50] LABS: Troponin High Sensitivity < 3.0 pg/mL (<58.9)
[2022-01-19] MEDS ORDERED: MORPHINE 4 MG/ML SYR ONE (19:41)
[2022-01-19] MEDS ORDERED: ONDANSETRON 4 MG/2 ML VIAL ONE (19:41)
--- NOTE | 2022-01-19 20:45 | ER ---
Nurse's Notes [facility] Name: Charity Hanks Age: 41 yrs Sex: Female : 1980 Arrival Date: 01/19/2022 Time: 16:47 Bed 11 Private MD: Diagnosis: Influenza due to identified novel influenza A virus-B;Coronavirus infection, unspecified Presentation: 01/19 17:35 Chief complaint: Patient states: mid chest pain radiating to left shoulder, sharp pain, iw started 1 , constant, has had similar pain in past and they can't fine what's wrong, i'm supposed to see cardiology on and I'm congested , have chills and body aches. Coronavirus screen: Client presents with at least one sign or symptom that may indicate coronavirus-19. Ebola Screen: Patient negative for fever greater than or equal to 101.5 degrees Fahrenheit, and additional compatible Ebola Virus Disease symptoms Patient denies exposure to infectious person. Patient denies travel to an Ebola-affected area in the 21 days before illness onset. No symptoms or risks identified at this time. Initial Sepsis Screen: Does the patient meet any 2 criteria? No. Patient's initial sepsis screen is negative. Does the patient have a suspected source of infection? No. Patient's initial sepsis screen is negative. Risk Assessment: Do you want to hurt yourself or someone else? Patient reports no desire to harm self or others. Onset of symptoms was January 19, 2022. 17:35 Method Of Arrival: Ambulatory iw 17:35 Acuity: CARLOS 3 iw Historical: - Allergies: 17:39 No Known Allergies; iw - PMHx: 17:39 depressive disorder; manic; Myocardial infarction; Hypercholesterolemia; PTSD; Anxiety; iw - PSHx: 17:39 Tonsillectomy; Cholecystectomy; iw - Immunization history:: Adult Immunizations up to date. - Social history:: Smoking status: Patient reports the use of cigarette tobacco products, smokes one pack cigarettes per day. Screenin:38 Abuse screen: Denies threats or abuse. Denies injuries from another. Nutritional lg3 screening: No deficits noted. Tuberculosis screening: No symptoms or risk factors identified. Fall Risk None identified. Assessment: 19:38 General: Appears in no apparent distress. uncomfortable, Behavior is calm, cooperative. lg3 Pain:. Pain: Complains of pain in chest. Neuro: No deficits noted. Level of Consciousness is awake, alert, obeys commands, Oriented to person, place, time, situation. Cardiovascular: Reports chest pain, Capillary refill < 3 seconds Clubbing of nail beds is absent JVD is absent Patient's skin is warm and dry. Respiratory: Reports cough that is Airway is patent Trachea midline Respiratory effort is even, unlabored, Respiratory pattern is regular, symmetrical. GI: No deficits noted. No signs and/or symptoms were reported involving the gastrointestinal system. Abdomen is round non-distended, Bowel sounds present X 4 quads. : No deficits noted. No signs and/or symptoms were reported regarding the genitourinary system. EENT: No deficits noted. No signs and/or symptoms were reported regarding the EENT system. Derm: No deficits noted. No signs and/or symptoms reported regarding the dermatologic system. Skin is intact, is healthy with good turgor, Skin is dry, Skin temperature is warm. Musculoskeletal: No deficits noted. Reports generalized body aches. 20:34 Reassessment: Patient appears in no apparent distress at this time. No changes from lg3 previously documented assessment. Patient and/or family updated on plan of care and expected duration. Pain level reassessed. Patient is alert, oriented x 3, equal unlabored respirations, skin warm/dry/pink. Vital Signs: 17:35 BP 97 / 75; Pulse 75; Resp 16; Temp 98.0; Pulse Ox 98% ; Weight 104.33 kg; Height 5 ft. iw 2 in. (157.48 cm); 19:41 BP 104 / 76; Pulse 71; Resp 17 S; Pulse Ox 98% on R/A; lg3 17:35 Body Mass Index 42.07 (104.33 kg, 157.48 cm) iw ED Course: 16:47 Patient arrived in ED. iw 17:13 Radha Titus FNP-C is [facility]. kb 17:13 Mayank Butler MD is Attending Physician. kb 17:39 Triage completed. iw 17:39 Arm band placed on. iw 18:25 XRAY Chest (1 view) In Process Unspecified. EDMS 19:32 Toyin Uriostegui, RN is Primary Nurse. lg3 19:38 Patient has correct armband on for positive identification. Call light in reach. Side lg3 rails up X 1. Client placed on continuous cardiac and pulse oximetry monitoring. NIBP monitoring applied. phototypesetting equipment monitor on. Door closed. Noise minimized. 19:38 No provider procedures requiring assistance completed. lg3 21:02 IV discontinued, intact, bleeding controlled, No redness/swelling at site. Pressure lg3 dressing applied. Administered Medications: 19:37 Drug: morphine 4 mg Route: IVP; Infused Over: 4 mins; Site: left forearm; lg3 19:38 Follow up: Response: No adverse reaction lg3 19:37 Drug: Zofran (Ondansetron) 4 mg Route: IVP; Site: left forearm; lg3 19:38 Follow up: Response: No adverse reaction lg3 Medication: 19:38 VIS not applicable for this client. lg3 Outcome: 20:45 Discharge ordered by . rajinder 21:02 Discharged to home ambulatory. lg3 21:02 Condition: stable 21:02 Discharge instructions given to patient, Instructed on discharge instructions, Demonstrated understanding of instructions. 21:06 Patient left the ED. lg3 Signatures: Dispatcher [employer] EDMS Radha Titus, SOFTWARE TEST AND VALIDATION ENGINEER-C SOFTWARE TEST AND VALIDATION ENGINEER-Nazanin De La Rosa, RN RN iw Toyin Uriostegui, RN RN lg3 Corrections: (The following items were deleted from the chart) 17:39 17:35 Pulse 75bpm; Resp 16bpm; Pulse Ox 98%; Temp 98.0F; 104.33 kg; Height 5 ft. 2 in.; iw BMI: 42.0; iw
--- NOTE | 2022-01-19 20:46 | EDPHYS ---
[facility] Name: Charity Hanks Age: 41 yrs Sex: Female : 1980 Arrival Date: 01/19/2022 Time: 16:47 Bed 11 Private MD: ED Physician Mayank Butler HPI: 01/19 22:05 This 41 yrs old Female presents to ER via Ambulatory with complaints of chest pain. kb 22:05 The patient or guardian reports chest pain that is located primarily in the anterior kb chest wall, left. Onset: 2 day(s) ago. The pain does not radiate. Associated signs and symptoms: Pertinent positives: fever, bodyaches. The chest pain is described as aching. Duration: The patient or guardian reports a single episode. Modifying factors: The symptoms are alleviated by nothing. the symptoms are aggravated by nothing. Severity of pain: At its worst the pain was moderate in the emergency department the pain is unchanged. The patient has experienced similar episodes in the past, multiple times. The patient has been recently seen at the [facility] Department, last week, for similar complaints. Pt reports chest pain, fever, chills, and bodyaches that started 2 days ago. States she has had this chest pain several times in the past with no diagnosis found. Has appt with hot baller on 01/25/22. Historical: - Allergies: 17:39 No Known Allergies; iw - PMHx: 17:39 depressive disorder; manic; Myocardial infarction; Hypercholesterolemia; PTSD; Anxiety; iw - PSHx: 17:39 Tonsillectomy; Cholecystectomy; iw - Immunization history:: Adult Immunizations up to date. - Social history:: Smoking status: Patient reports the use of cigarette tobacco products, smokes one pack cigarettes per day. ROS: 22:05 Abdomen/GI: Negative for abdominal pain, nausea, vomiting, diarrhea, and constipation. kb 22:05 Constitutional: Positive for body aches, chills, fatigue, fever, malaise. 22:05 Cardiovascular: Positive for chest pain. 22:05 All other systems are negative. Exam: 22:05 Constitutional: This is a well developed, well nourished patient who is awake, alert, kb and in no acute distress. Head/Face: Normocephalic, atraumatic. ENT: Moist Mucous membranes Cardiovascular: Regular rate and rhythm with a normal S1 and S2. No gallops, murmurs, or rubs. No pulse deficits. Respiratory: Respirations even and unlabored. No increased work of breathing. Talking in full sentences Abdomen/GI: Soft, non-tender. No distention Skin: Warm, dry with normal turgor. Normal color. MS/ Extremity: Pulses equal, no cyanosis. Neurovascular intact. Full, normal range of motion. Neuro: Awake and alert, GCS 15, oriented to person, place, time, and situation. Moves all extremities. Normal gait. Psych: Awake, alert, with orientation to person, place and time. Behavior, mood, and affect are within normal limits. 22:05 ECG was reviewed by the Attending Physician. Vital Signs: 17:35 BP 97 / 75; Pulse 75; Resp 16; Temp 98.0; Pulse Ox 98% ; Weight 104.33 kg; Height 5 ft. iw 2 in. (157.48 cm); 19:41 BP 104 / 76; Pulse 71; Resp 17 S; Pulse Ox 98% on R/A; lg3 17:35 Body Mass Index 42.07 (104.33 kg, 157.48 cm) iw MDM: 17:38 Patient medically screened. kb 22:07 Data reviewed: vital signs, nurses notes. Data interpreted: Pulse oximetry: on room air kb is 98 %. Interpretation: normal. Counseling: I had a detailed discussion with the patient and/or guardian regarding: the historical points, exam findings, and any diagnostic results supporting the discharge/admit diagnosis, lab results, radiology results, the need for outpatient follow up, a hot baller, a family practitioner, to return to the emergency department if symptoms worsen or persist or if there are any questions or concerns that arise at home. 01/19 17:39 Order name: Flu; Complete Time: 18:40 kb 01/19 17:39 Order name: COVID-19 SARS RT PCR (Document "Date of Onset" if Symptomatic); Complete kb Time: 19:04 01/19 17:39 Order name: Basic Metabolic Panel; Complete Time: 18:51 kb 01/19 17:39 Order name: CBC with Diff; Complete Time: 18:40 kb 01/19 17:39 Order name: NT PRO-BNP; Complete Time: 18:51 kb 01/19 17:39 Order name: Troponin HS; Complete Time: 18:51 kb 01/19 17:39 Order name: XRAY Chest (1 view); Complete Time: 18:40 kb 01/19 17:39 Order name: EKG; Complete Time: 17:40 kb 01/19 17:39 Order name: Cardiac monitoring; Complete Time: 19:38 kb 01/19 17:39 Order name: EKG - Nurse/Tech; Complete Time: 20:32 kb 01/19 17:39 Order name: IV Saline Lock; Complete Time: 19:38 kb 01/19 17:39 Order name: Labs collected and sent; Complete Time: 19:38 kb 01/19 17:39 Order name: O2 Per Protocol; Complete Time: 19:38 kb 01/19 17:39 Order name: O2 Sat Monitoring; Complete Time: 19:38 kb EC:05 Rate is 70 beats/min. Rhythm is regular. Left axis deviation noted. NV interval is kb normal at 152 msec. QRS interval is normal at 84 msec. QT interval is normal at 449 msec. Administered Medications: 19:37 Drug: morphine 4 mg Route: IVP; Infused Over: 4 mins; Site: left forearm; lg3 19:38 Follow up: Response: No adverse reaction lg3 19:37 Drug: Zofran (Ondansetron) 4 mg Route: IVP; Site: left forearm; lg3 19:38 Follow up: Response: No adverse reaction lg3 Disposition Summary: 01/19/22 20:45 Discharge Ordered Location: Home kb Condition: Stable kb Diagnosis - Influenza due to identified novel influenza A virus - B kb - Coronavirus infection, unspecified kb Followup: kb - With: Emergency Department - When: As needed - Reason: Worsening of condition Followup: kb - With: Private Physician - When: 2 - 3 days - Reason: Recheck today's complaints, Continuance of care, Re-evaluation by your physician Discharge Instructions: - Discharge Summary Sheet kb - Influenza, Adult, [id number] kb - Viral Respiratory Infection, [id number] kb - COVID-19 kb Forms: - Medication Reconciliation Form kb - Thank You Letter kb - Antibiotic Education kb - Prescription Opioid Use kb Addendum: 01/21/2022 13:53 Co-signature as Attending Physician, Mayank Butler MD I agree with the assessment and c esqueda plan of care. Signatures: Dispatcher [employer] Radha Hill, KAY-C KAY-Mayank Correa MD MD cha Williams, Irene, RN RN iw Toyin Uriostegui RN RN lg3
[2022-01-19 21:16] VITALS: TEMP 98; O2SAT 98
[2022-01-19 21:18] VITALS: BP 104/76
--- NOTE | 2022-01-21 14:42 | EKG ---
Test Date: 2022-01-19 Test Time: 20:32:50 Oil Drilling Engineer: MEASUREMENT RESULTS: Intervals: Rate: 68 [place]: 150 QRSD: 84 QT: 404 QTc: 429 [place]: P: 34 GA: 150 QRS: -41 T: 30 INTERPRETIVE STATEMENTS: Normal sinus rhythm Left axis deviation Low voltage QRS Nonspecific T wave abnormality Abnormal ECG Compared to ECG 01/11/2022 15:55:58 Low QRS voltage now present T-wave abnormality now present Fusion complex(es) no longer present Electronically Signed On 01-21-22 14:41:09 CDT by Edgar Bazzi
--- NOTE | 2022-01-22 12:48 | EKG ---
Test Date: 2022-01-19 Test Time: 20:33:22 Nurse Advocate: MEASUREMENT RESULTS: Intervals: Rate: 70 [place]: 152 QRSD: 84 QT: 416 QTc: 449 [place]: P: 34 [place]: 152 QRS: -43 T: 26 INTERPRETIVE STATEMENTS: Normal sinus rhythm Left axis deviation Low voltage QRS Abnormal ECG Compared to ECG 01/19/2022 20:32:50 T-wave abnormality no longer present Electronically Signed On 01-22-22 12:43:59 CDT by Neil Arthur
== END 2022-01-19 21:06 | disposition home or self-care (01) ==
LOC: ER 16:26
DX: U07.1 COVID-19 (principal); J10.1 Influenza due to other identified influenza virus with other respiratory manifestations; F17.210 Nicotine dependence, cigarettes, uncomplicated
CPT/HCPCS: 93005; 85025; 80048; 36415; 84484; 83880; 87804 ×2; 71045; 96375; 96374; 99284; U0003; J2405

== ENCOUNTER 2022-03-24 20:27 | Observation (INO) | payer BC ==
[2022-03-24] MEDS ORDERED: FAMOTIDINE 20 MG/2 ML VIAL IV ONE (21:18)
[2022-03-24] MEDS ORDERED: METOPROLOL TARTRATE 5 MG/5 ML INJ IV ONE (21:18)
[2022-03-24] MEDS ORDERED: METOPROLOL TAR 50 MG TAB ONE (21:18)
[2022-03-24] MEDS ORDERED: NA CHLORIDE 0.9% 1,000 ML ONE (21:18)
[2022-03-24] MEDS ORDERED: ASPIRIN EC 81 MG TAB PO ONE (21:37)
[2022-03-24] MEDS ORDERED: MORPHINE 4 MG/ML SYR ONE (21:37)
[2022-03-24] MEDS ORDERED: ONDANSETRON 4 MG/2 ML VIAL ONE (21:37)
--- NOTE | 2022-03-24 21:43 | ER ---
Nurse's Notes [facility] Name: Charity Hanks Age: 42 yrs Sex: Female : 1980 Arrival Date: 03/24/2022 Time: 20:38 Bed 5 Private MD: Diagnosis: Essential (primary) hypertension;Chest pain, unspecified;Tobacco abuse counseling;Tobacco use;Hypokalemia Presentation: 03/24 20:45 Chief complaint: Patient states: midsternal chest pain began at 630 pm no other kl symptoms. Coronavirus screen: Vaccine status: Patient reports receiving the 2nd dose of the covid vaccine. Ebola Screen: Patient negative for fever greater than or equal to 101.5 degrees Fahrenheit, and additional compatible Ebola Virus Disease symptoms. Initial Sepsis Screen: Does the patient meet any 2 criteria? No. Patient's initial sepsis screen is negative. Does the patient have a suspected source of infection? No. Patient's initial sepsis screen is negative. Risk Assessment: Do you want to hurt yourself or someone else? Patient reports no desire to harm self or others. Onset of symptoms was March 24, 2022 at 18:30. 20:45 Method Of Arrival: [facility]: [facility] 20:45 Acuity: CARLOS 3 kl Triage Assessment: 20:47 General: Appears distressed, uncomfortable, Behavior is cooperative. Pain: Complains of kl pain in chest. EENT: No deficits noted. No signs and/or symptoms were reported regarding the EENT system. Neuro: No deficits noted. Level of Consciousness is awake, alert, obeys commands, Oriented to person, place, time, situation. Cardiovascular: Reports chest pain, Denies nausea, palpitations, shortness of breath, Heart tones S1 S2. Respiratory: No deficits noted. Airway is patent Trachea midline Respiratory effort is even, unlabored. GI: No deficits noted. No signs and/or symptoms were reported involving the gastrointestinal system. : No deficits noted. No signs and/or symptoms were reported regarding the genitourinary system. Derm: No deficits noted. No signs and/or symptoms reported regarding the dermatologic system. Historical: - Allergies: 20:56 No Known Allergies; ll3 - Home Meds: 20:56 Desyrel 200 Oral nightly [Active]; Lexapro 5 mg Oral tab 1 tab nightly [Active]; ll3 melatonin 6 mg oral tab [Active]; Topamax 200 mg Oral tab nightly [Active]; Wellbutrin XL 150 mg Oral Tb24 1 tab once daily [Active]; Zyprexa 15 mg Oral tab twice a day [Active]; losartan 50 mg oral tab 1 tab once daily [Active]; Robaxin 750 mg Oral tab 3 times per day [Active]; Vistaril 50 mg Oral cap 1 cap 4 times per day [Active]; - PMHx: 20:56 Anxiety; depressive disorder; Hypercholesterolemia; manic; Myocardial infarction; PTSD; ll3 - PSHx: 20:56 Cholecystectomy; Tonsillectomy; ll3 - Immunization history:: Adult Immunizations not up to date. - Social history:: Smoking status: Patient denies any tobacco usage or history of. - Family history:: not pertinent. Screenin:48 Abuse screen: Denies threats or abuse. Nutritional screening: No deficits noted. kl Tuberculosis screening: No symptoms or risk factors identified. Fall Risk None identified. Assessment: 21:40 Reassessment: No changes from previously documented assessment. Patient and/or family ll3 updated on plan of care and expected duration. Pain level reassessed. Patient is alert, oriented x 3, equal unlabored respirations, skin warm/dry/pink. C/o chest pain 9/10, medicated as ordered. Vital Signs: 20:45 BP 143 / 112; Pulse 82; Resp 18; Temp 98(TE); Pulse Ox 97% on R/A; Pain 8/10; kl 21:40 BP 125 / 87; Pulse 94; Resp 25; Pulse Ox 96% on R/A; Weight 104.33 kg (R); ll3 03/25 00:56 BP 122 / 82; Pulse 90; Resp 16; Pulse Ox 99% on R/A; kl ED Course: 03/24 20:38 Patient arrived in ED. ll3 20:39 Mayank Butler MD is Attending Physician. [facility] 20:47 Triage completed. kl 20:48 Patient has correct armband on for positive identification. kl 20:49 Client placed on continuous cardiac and pulse oximetry monitoring. NIBP monitoring kl applied. 20:49 EKG done, by ED staff. kl 21:16 XRAY Chest (1 view) In Process Unspecified. EDMS 21:30 Inserted saline lock: 22 gauge in right upper arm, using aseptic technique. ll3 21:35 Basic Metabolic Panel Sent. tw5 21:35 CBC with Diff Sent. tw5 21:35 LFT's Sent. tw5 21:35 Magnesium Sent. tw5 21:35 NT PRO-BNP Sent. tw5 21:35 PT-INR Sent. tw5 21:35 Troponin HS Sent. tw5 21:35 Initial lab(s) drawn, by me, sent to lab. Inserted saline lock: 24 gauge in left hand, tw5 using aseptic technique. Blood collected. 21:39 Oliver Severino MD is Hospitalizing Provider. madeleine 22:52 Arm band placed on Patient placed in an exam room, on a stretcher, on pulse oximetry. ll3 22:57 CT Chest For PE Angio In Process Unspecified. EDMS 23:53 Candido Handley, JAMES is Primary Nurse. as6 03/25 00:56 No provider procedures requiring assistance completed. Patient admitted, IV remains in as6 place. Administered Medications: 03/24 21:39 Not Given (Physicians requestt): Lopressor (metoprolol) 5 mg IVP once; Hold for SBP ll3 <100 or HR <60. 21:39 Drug: Pepcid (famotidine) 20 mg Route: IVP; Site: right upper arm; 3 03/25 00:22 Follow up: Response: No adverse reaction 3 03/24 21:39 Drug: Aspirin 81 mg Route: PO; 3 03/25 00:23 Follow up: Response: No adverse reaction [facility] 03/24 21:39 Drug: morphine 4 mg Route: IVP; Infused Over: 4 mins; Site: right upper arm; 3 03/25 00:57 Follow up: Response: No adverse reaction as6 03/24 21:39 Drug: Zofran (Ondansetron) 4 mg Route: IVP; Site: right upper arm; 3 23:55 Follow up: Response: No adverse reaction 3 21:40 Drug: NS 0.9% 1000 ml Route: IV; Rate: 125 ml/hr; Site: right upper arm; 3 03/25 00:56 Follow up: IV Status: Infusion continued upon admission as 03/24 21:40 Drug: Lopressor (metoprolol TARTRATE) 50 mg Route: PO; 3 03/25 00:22 Follow up: Response: No adverse reaction ll3 03/24 22:19 Drug: Lovenox (enoxaparin) 1 mg/kg Route: Sub-Q; Site: abdomen; ll3 23:55 Follow up: Response: No adverse reaction ll3 22:19 Drug: Rocephin (cefTRIAXone) 1 grams Route: IV; Rate: per protocol; Site: right upper ll3 arm; 23:55 Follow up: Response: No adverse reaction; IV Status: Completed infusion; IV Intake: [id number] 23:54 Drug: HYDROcodone-acetaminophen 5 mg-325 mg 1 tabs Route: PO; ll3 03/25 00:57 Follow up: Response: No adverse reaction as6 03/24 23:55 Drug: Potassium Effervescent Tablet 25 mEq Route: PO; ll3 03/25 00:57 Follow up: Response: No adverse reaction as6 Medication: 03/24 22:52 VIS not applicable for this client. ll3 Intake: 23:55 IV: 10ml; Total: 10ml. ll3 Outcome: 21:42 Decision to Hospitalize by Provider. madeleine 03/25 00:56 Admitted to Med/surg accompanied by tech, via wheelchair, room 201, with chart, Report as6 called to Brendan RN Condition: stable Instructed on the need for admit. 01:15 Patient left the ED. ll3 Signatures: Dispatcher [employer] EDStacie Moya RN RN kl Anderson, Corey, MD MD cha Wood, Tiffany tw5 Candido Handley RN RN as6 Lor Blair RN RN ll3 Corrections: (The following items were deleted from the chart) 03/24 21:40 21:40 Reassessment: No changes from previously documented assessment. Patient and/or ll3 family updated on plan of care and expected duration. Pain level reassessed. Patient is alert, oriented x 3, equal unlabored respirations, skin warm/dry/pink. ll3 21:47 21:40 BP 125 / 87; Pulse 94bpm; Resp 25bpm; Pulse Ox 96% RA; ll3 ll3
--- NOTE | 2022-03-24 21:43 | EDPHYS ---
Physician Documentation [facility] Name: Charity Hanks Age: 42 yrs Sex: Female : 1980 Arrival Date: 03/24/2022 Time: 20:38 Bed 5 Private MD: ED Physician Mayank Butler HPI: 03/24 21:33 This 42 yrs old Female presents to ER via EMS with complaints of chest pain madeleine and sob. 21:33 The patient has shortness of breath at rest. Onset: The symptoms/episode began/occurred madeleine just prior to arrival, today. Duration: The symptoms are continuous, and are unchanged since they started. The patient's shortness of breath has no apparent modifying factors. The patient or guardian reports chest pain that is located primarily in the anterior chest wall, left. Onset: just prior to arrival. The pain radiates to the left arm, the left shoulder. Associated signs and symptoms: The patient has no apparent associated signs or symptoms. Severity of symptoms: At their worst the symptoms were mild in the emergency department the symptoms are unchanged. Historical: - Allergies: 20:56 No Known Allergies; ll3 - Home Meds: 20:56 Desyrel 200 Oral nightly [Active]; Lexapro 5 mg Oral tab 1 tab nightly [Active]; ll3 melatonin 6 mg oral tab [Active]; Topamax 200 mg Oral tab nightly [Active]; Wellbutrin XL 150 mg Oral Tb24 1 tab once daily [Active]; Zyprexa 15 mg Oral tab twice a day [Active]; losartan 50 mg oral tab 1 tab once daily [Active]; Robaxin 750 mg Oral tab 3 times per day [Active]; Vistaril 50 mg Oral cap 1 cap 4 times per day [Active]; - PMHx: 20:56 Anxiety; depressive disorder; Hypercholesterolemia; manic; Myocardial infarction; PTSD; ll3 - PSHx: 20:56 Cholecystectomy; Tonsillectomy; ll3 - Immunization history:: Adult Immunizations not up to date. - Social history:: Smoking status: Patient denies any tobacco usage or history of. - Family history:: not pertinent. ROS: 21:33 Constitutional: Negative for fever, chills, and weight loss, Eyes: Negative for injury, madeleine pain, redness, and discharge, ENT: Negative for injury, pain, and discharge, Neck: Negative for injury, pain, and swelling, Respiratory: Negative for shortness of breath, cough, wheezing, and pleuritic chest pain, Abdomen/GI: Negative for abdominal pain, nausea, vomiting, diarrhea, and constipation, Back: Negative for injury and pain, : Negative for injury, bleeding, discharge, and swelling, MS/Extremity: Negative for injury and deformity, Skin: Negative for injury, rash, and discoloration, Neuro: Negative for headache, weakness, numbness, tingling, and seizure, Psych: Negative for depression, anxiety, suicide ideation, homicidal ideation, and hallucinations, Allergy/Immunology: Negative for hives, rash, and allergies, Endocrine: Negative for neck swelling, polydipsia, polyuria, polyphagia, and marked weight changes, Hematologic/Lymphatic: Negative for swollen nodes, abnormal bleeding, and unusual bruising. 21:33 Cardiovascular: Positive for chest pain. Exam: 21:33 Constitutional: This is a well developed, well nourished patient who is awake, alert, madeleine and in no acute distress. Head/Face: Normocephalic, atraumatic. Eyes: Pupils equal round and reactive to light, extra-ocular motions intact. Lids and lashes normal. Conjunctiva and sclera are non-icteric and not injected. Cornea within normal limits. Periorbital areas with no swelling, redness, or edema. ENT: Nares patent. No nasal discharge, no septal abnormalities noted. Tympanic membranes are normal and external auditory canals are clear. Oropharynx with no redness, swelling, or masses, exudates, or evidence of obstruction, uvula midline. Mucous membranes moist. Neck: Trachea midline, no thyromegaly or masses palpated, and no cervical lymphadenopathy. Supple, full range of motion without nuchal rigidity, or vertebral point tenderness. No Meningismus. Chest/axilla: Normal chest wall appearance and motion. Nontender with no deformity. No lesions are appreciated. Cardiovascular: Regular rate and rhythm with a normal S1 and S2. No gallops, murmurs, or rubs. Normal PMI, no JVD. No pulse deficits. Respiratory: Lungs have equal breath sounds bilaterally, clear to auscultation and percussion. No rales, rhonchi or wheezes noted. No increased work of breathing, no retractions or nasal flaring. Abdomen/GI: Soft, non-tender, with normal bowel sounds. No distension or tympany. No guarding or rebound. No evidence of tenderness throughout. Pelvic Exam: Normal external genitalia. Speculum exam with closed cervical os, no discharge or bleeding noted. Bimanual exam with normal adnexa, no adnexal or cervical motion tenderness. Normal uterus. Skin: Warm, dry with normal turgor. Normal color with no rashes, no lesions, and no evidence of cellulitis. MS/ Extremity: Pulses equal, no cyanosis. Neurovascular intact. Full, normal range of motion. Neuro: Awake and alert, GCS 15, oriented to person, place, time, and situation. Cranial nerves II-XII grossly intact. Motor strength 5/5 in all extremities. Sensory grossly intact. Cerebellar exam normal. Normal gait. Psych: Awake, alert, with orientation to person, place and time. Behavior, mood, and affect are within normal limits. 21:33 Cardiovascular: Rate: tachycardic, actual rate is 106 bpm, Rhythm: regular, Pulses: Pulses are 4+ in bilateral radial, brachial, femoral, popliteal, posterior tibial and and dorsalis pedis arteries.. 21:33 ECG was reviewed by the Attending Physician. 21:33 Musculoskeletal/extremity: DVT Exam: No signs of deep vein thrombosis. no pain, no swelling, no tenderness, negative Homans' sign noted on exam, no appreciated bluish discoloration, no erythema, no increased warmth. Vital Signs: 20:45 BP 143 / 112; Pulse 82; Resp 18; Temp 98(TE); Pulse Ox 97% on R/A; Pain 8/10; kl 21:40 BP 125 / 87; Pulse 94; Resp 25; Pulse Ox 96% on R/A; Weight 104.33 kg (R); ll3 03/25 00:56 BP 122 / 82; Pulse 90; Resp 16; Pulse Ox 99% on R/A; kl MDM: 03/24 20:39 Patient medically screened. madeleine 21:36 Differential diagnosis: Bronchitis CHF exacerbation, abnormal EKG, acute pericarditis, madeleine anxiety, coronary artery disease chest wall pain, Cholelithiasis gastritis, pancreatitis, peptic ulcer disease, pleurisy, pulmonary embolus, stable angina, unstable angina, Myocardial Infarction pneumonia, pulmonary edema, Pulmonary Embolism Unstable Angina. Antibiotic administration: Not indicated. HEART Score: History:. The patient was given aspirin in the Emergency Department. The patient's Wells Deep Vein Thrombosis Score was calculated as follows: Total Score: 0. This patient was found to be at low risk for a deep vein thrombosis by using the Well's assessment criteria Heart Rate >100 BPM (1.5 Pts) Total Score: 0-2 Pts- Low Risk. The patient's pulmonary embolism risk score was calculated as follows: the patients heart rate is greater than 100 beats per minute (1.5 Pts) the patients heart rate is greater than 100 beats per minute (1.5 Pts) Total Score: 0-2 points. This patient was found to be at low risk for a pulmonary embolism by using the Well's assessment criteria. TATIANA Risk Score: 1 - Three or more CAD risk factors, [Family Hx], [HTN], [Active Smoker], 1 - Recent [<24hrs] Severe Angina, TOTAL SCORE = 2. Immunization status:. Data reviewed: vital signs, nurses notes, lab test result(s), EKG, radiologic studies, CT scan, plain films. Data interpreted: alarm security or surveillance monitor: rate is 82 beats/min, rhythm is regular, Pulse oximetry: on room air is 97 %. Test interpretation: by ED physician or midlevel provider: ECG, plain radiologic studies. 03/24 20:53 Order name: Basic Metabolic Panel; Complete Time: 22:33 [facility] 03/24 20:53 Order name: CBC with Diff; Complete Time: 22:22 [facility] 03/24 20:53 Order name: LFT's; Complete Time: 22:33 [facility] 03/24 20:53 Order name: Magnesium; Complete Time: 22:33 [facility] 03/24 20:53 Order name: NT PRO-BNP; Complete Time: 22:33 [facility] 03/24 20:53 Order name: PT-INR; Complete Time: 21:59 03/24 20:53 Order name: Troponin HS; Complete Time: 22:33 [facility] 03/24 20:53 Order name: XRAY Chest (1 view); Complete Time: 23:20 [facility] 03/24 20:53 Order name: Lipase; Complete Time: 22:33 [facility] 03/24 20:53 Order name: SARS RAPID; Complete Time: 22:22 madeleine 03/24 20:53 Order name: UDS; Complete Time: 22:22 03/24 21:47 Order name: Urine Dipstick-Ancillary; Complete Time: 21:48 EDMS 03/24 22:00 Order name: Urine Culture [facility] 03/24 23:38 Order name: Troponin High Sensitivity [facility] 03/24 20:53 Order name: EKG; Complete Time: 20:54 [facility] 03/24 20:53 Order name: Cardiac monitoring; Complete Time: 20:55 [facility] 03/24 20:53 Order name: EKG - Nurse/Tech; Complete Time: 20:55 [facility] 03/24 20:53 Order name: IV Saline Lock; Complete Time: 21:34 [facility] 03/24 21:02 Order name: CT Chest For PE Angio; Complete Time: 23:20 [facility] 03/24 20:53 Order name: Labs collected and sent; Complete Time: 21:34 [facility] 03/24 20:53 Order name: O2 Per Protocol; Complete Time: 20:55 [facility] 03/24 20:53 Order name: O2 Sat Monitoring; Complete Time: 20:55 [facility] EC:33 Rate is 106 beats/min. Rhythm is regular. QRS [place] is Normal. IN interval is normal. [facility] QRS interval is normal. QT interval is normal. No Q waves. T waves are Normal. No ST changes noted. Clinical impression: NSR w/ Non-specific ST/T Changes and No evidence of ischemia. Interpreted by me. Reviewed by me. Administered Medications: 21:39 Not Given (Physicians requestt): Lopressor (metoprolol) 5 mg IVP once; Hold for SBP ll3 <100 or HR <60. 21:39 Drug: Pepcid (famotidine) 20 mg Route: IVP; Site: right upper arm; ll3 03/25 00:22 Follow up: Response: No adverse reaction 3 03/24 21:39 Drug: Aspirin 81 mg Route: PO; ll3 03/25 00:23 Follow up: Response: No adverse reaction 3 03/24 21:39 Drug: morphine 4 mg Route: IVP; Infused Over: 4 mins; Site: right upper arm; ll3 03/25 00:57 Follow up: Response: No adverse reaction as6 03/24 21:39 Drug: Zofran (Ondansetron) 4 mg Route: IVP; Site: right upper arm; ll3 23:55 Follow up: Response: No adverse reaction 3 21:40 Drug: NS 0.9% 1000 ml Route: IV; Rate: 125 ml/hr; Site: right upper arm; 3 03/25 00:56 Follow up: IV Status: Infusion continued upon admission as6 03/24 21:40 Drug: Lopressor (metoprolol TARTRATE) 50 mg Route: PO; 3 03/25 00:22 Follow up: Response: No adverse reaction 3 03/24 22:19 Drug: Lovenox (enoxaparin) 1 mg/kg Route: Sub-Q; Site: abdomen; 3 23:55 Follow up: Response: No adverse reaction 3 22:19 Drug: Rocephin (cefTRIAXone) 1 grams Route: IV; Rate: per protocol; Site: right upper ll3 arm; 23:55 Follow up: Response: No adverse reaction; IV Status: Completed infusion; IV Intake: [id number] 23:54 Drug: HYDROcodone-acetaminophen 5 mg-325 mg 1 tabs Route: PO; 3 03/25 00:57 Follow up: Response: No adverse reaction as6 03/24 23:55 Drug: Potassium Effervescent Tablet 25 mEq Route: PO; 3 03/25 00:57 Follow up: Response: No adverse reaction as6 Disposition Summary: 03/24/22 21:42 Hospitalization Ordered Hospitalization Status: Observation madeleine Provider: Oliver Severino cha Location: Telemetry/MedSurg (observation) madeleine Condition: Fair madeleine Problem: new madeleine Symptoms: have improved madeleine Bed/Room Type: Standard [facility] Room Assignment: 201(03/25/22 00:46) Diagnosis - Essential (primary) hypertension madeleine - Chest pain, unspecified madeleine - Tobacco abuse counseling madeleine - Tobacco use madeleine - Hypokalemia madeleine Forms: - Medication Reconciliation Form madeleine - SBAR form madeleine Signatures: Dispatcher [employer] Stacie Jj RN RN kl Anderson, Corey, MD MD cha Attema, Lee, NURSE LICENSED PRACTICAL-C NURSE LICENSED PRACTICAL-Cla1 Vira Shah RN RN Lor Blair RN RN ll3 Candido Handley RN as6 Corrections: (The following items were deleted from the chart) 00:46 03/24 21:42 madeleine cg
[2022-03-24 21:47] LABS: Urine Blood Negative (Negative); Urine Glucose Negative (Negative); Urine Protein Negative (Negative); Urine Specific Gravity 1.015 (1.005-1.030)
[2022-03-24 21:49] LABS: Absolute Lymphocytes (CBC) 3.5 K/uL (0.7-4.9); Hematocrit 44.1 % (36.0-45.0); Lymphocytes % 27.5 % (15.3-44.8); MCV 81.8 fL (80-100); MPV 7.9 fL (7.6-11.3); RBC Red Blood Cell Count 5.39 M/uL (3.86-4.86)
[2022-03-24 21:56] LABS: Protime INR 1.06
[2022-03-24 22:06] LABS: ALT/SGPT 27 U/L (12-78); AST/SGOT 14 U/L (15-37); Albumin 3.3 g/dL (3.4-5.0); Alkaline Phosphatase 81 U/L (45-117); BUN Blood Urea Nitrogen 15 mg/dL (7-18); Bicarbonate 21 mmol/L (21-32); Bilirubin Total 0.1 mg/dL (0.2-1.0); Glomerular Filtration Rate 106 ml/min (=/>90); Glucose Level 115 mg/dL (74-106); Lipase 132 U/L (73-393); Magnesium 1.8 mg/dL (1.8-2.4); NT PRO-BNP 14 pg/mL (<125); Potassium 3.4 mmol/L (3.5-5.1); Protein, Total 7.2 g/dL (6.4-8.2); Sodium Level 139 mmol/L (136-145); Troponin High Sensitivity 3.3 pg/mL (<58.9)
[2022-03-24 22:08] LABS: SARS-CoV-2 Antigen Rapid Res Negative (Negative)
[2022-03-24 22:09] LABS: Barbiturates NEGATIVE (NEGATIVE); Benzodiazepines NEGATIVE (NEGATIVE); Cocaine NEGATIVE (NEGATIVE); METHAMPHETAM NEGATIVE (NEGATIVE); Methadone NEGATIVE (NEGATIVE); Opiates NEGATIVE (NEGATIVE); Phencyclidine NEGATIVE (NEGATIVE); THC Cannibis NEGATIVE (NEGATIVE)
[2022-03-24] MEDS ORDERED: ENOXAPARIN 100 MG/ML SYR SQ ONE (22:20)
[2022-03-24] MEDS ORDERED: CEFTRIAXONE 1000 MG/VIAL ONE (22:20)
[2022-03-24 22:32] LABS: Bilirubin Direct < 0.1 mg/dL (0-0.2)
--- NOTE | 2022-03-24 23:17 | RAD REPORT ---
EXAM DESCRIPTION: Akiko Single View03/24/2022 9:14 pm CLINICAL HISTORY: Chest pain COMPARISON: January 2022 FINDINGS: The lungs appear clear of acute infiltrate. The heart is normal size IMPRESSION: No acute abnormalities displayed
--- NOTE | 2022-03-24 23:17 | RAD REPORT ---
EXAM DESCRIPTION: CT - Chest For Pe Angio - 03/24/2022 10:55 pm CLINICAL HISTORY: Chest pain COMPARISON: January 2022 TECHNIQUE: Dynamically enhanced axial 3 mm thick images of the chest were obtained during administra tion of <100> mL Isovue 370 IV contrast. Coronal and oblique reconstruction images were generated and reviewed. Exam utilizes a protocol for optimal evaluation of pulmonary arterial tree. Maximum intensity projections 3D imaging was utilized All CT scans are performed using dose optimization technique as appropriate and may include automated exposure control or mA/KV adjustment according to patient size. FINDINGS: A pulmonary embolus is not seen. A thoracic aortic aneurysm is not noted. A pleural effusion is not seen. A pericardial effusion is not seen. A lung consolidation is not present. IMPRESSION: Negative for a pulmonary embolism.
[2022-03-24] MEDS ORDERED: HYDROCODONE/APAP 5/325 MG TAB ONE (23:54)
[2022-03-24] MEDS ORDERED: POTASSIUM 25 MEQ EFFERV TAB ONE (23:54)
--- NOTE | 2022-03-25 01:17 | P.HP ---
Certification for Inpatient Patient admitted to: Observation With expected LOS: <2 Midnights Patient will require the following post-hospital care: None Practitioner: I am a practitioner with admitting privileges, knowledge of patient current condition, hospital course, and medical plan of care. Services: Services provided to patient in accordance with Admission requirements found in Title 42 Section 412.3 of the Code of Federal Regulations <Michelet Templeton Pamela Powell - Last Filed: 03/25/22 01:11> Patient History Date of Service: 03/25/22 Reason for admission: Chest pain History of Present Illness: 42-year-old female with history of anxiety/depression/PTSD/bipolar disorder presents the emergency department for chest pain. She reports sharp substernal chest pain rating to her left shoulder that started around 630 this afternoon while she was at rest. She was evaluated in the emergency department her initial high-sensitivity troponin was 3.[address] elevation, chest x-ray as well as CT of the chest with IV contrast negative for acute findings. Patient was given aspirin, metoprolol in the emergency department ED provider wishes to admit under observation for ACS rule out. - Past Medical/Surgical History -: Anxiety/depression -: Bipolar -: PTSD -: Lucie Psychosocial/ Personal History: Unemployed, lives at home with her father and 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 - Family History Mother -: Heart disease Father -: Heart disease - Social History Smoking Status: Never smoker Alcohol use: No CD- Drugs: No Caffeine use: Yes Place of Residence: Home <YokastaMichelet Powell - Last Filed: 03/25/22 01:11> Date of Service: 03/25/22 <Oliver Severino - Last Filed: 03/25/22 16:59> Allergies No Known Allergies Allergy (Unverified 03/25/22 00:43) Review of Systems 10-point ROS is otherwise unremarkable Cardiovascular: Chest Pain <Michelet Templeton - Last Filed: 03/25/22 01:11> Physical Examination - Physical Exam General: Alert, In no apparent distress, Oriented x3 HEENT: Atraumatic, PERRLA, Mucous membr. moist/pink, EOMI, Sclerae nonicteric Neck: Supple, 2+ carotid pulse no bruit, No LAD, Without JVD or thyroid abnormality Respiratory: Clear to auscultation bilaterally, Normal air movement Cardiovascular: Regular rate/rhythm, Normal S1 S2 Capillary refill: <2 Seconds Gastrointestinal: Normal bowel sounds, No tenderness Musculoskeletal: No tenderness Integumentary: No rashes Neurological: Normal speech, Normal strength at 5/5 x4 extr, Normal tone, Normal affect - Studies Laboratory Data (last 24 hrs) 03/24/22 21:32: PT 11.7, INR 1.06 03/24/22 21:32: WBC 12.70 H, Hgb 14.9, Hct 44.1, Plt Count 320 03/24/22 21:32: Sodium 139, Potassium 3.4 L, BUN 15, Creatinine 0.72, Glucose 115 H, Magnesium 1.8, Total Bilirubin 0.1 L, AST 14 L, ALT 27, Alkaline Phosphatase 81, Lipase 132 <Michelet Templeton - Last Filed: 03/25/22 01:11> - Studies Laboratory Data (last 24 hrs) 03/24/22 21:32: PT 11.7, INR 1.06 03/24/22 21:32: WBC 12.70 H, Hgb 14.9, Hct 44.1, Plt Count 320 03/24/22 21:32: Sodium 139, Potassium 3.4 L, BUN 15, Creatinine 0.72, Glucose 115 H, Magnesium 1.8, Total Bilirubin 0.1 L, AST 14 L, ALT 27, Alkaline Phosphatase 81, Lipase 132 <Oliver Severino - Last Filed: 03/25/22 16:59> Assessment and Plan - Plan Assessment: Chest pain R/O ACS Anxiety/Depression/PTSD Plan: Chest pain R/O ACS: Jordan troponins, monitor on tele, cardiology consult. Daily ASA, statin, beta ivanna. PE ruled out with CT, trops negative so far. Anxiety/Depression/PTSD: Continue home meds. DVT PPX: Lovenox Code status:Full Discharge Plan: Home Plan to discharge in: 24 Hours - Advance Directives Does patient have a Living Will: No Does patient have a Durable POA for Healthcare: No - Code Status/Comfort Care Code Status Assessed: Yes (Full code) Critical Care: No Time Spent Managing Pts Care (In Minutes): 55 <Michelet Templeton - Last Filed: 03/25/22 01:11> Physician Review: Patient Assessed, Agree with Above Assessment and Plan <Maycol,Oliver - Last Filed: 03/25/22 16:59>
[2022-03-25] MEDS ORDERED: ONDANSETRON 4 MG/2 ML VIAL IV PRN (01:34)
[2022-03-25] MEDS: MORPHINE 2 MG/ML SYR IV PRN ×3 (03:16→15:19)
[2022-03-25 03:58] LABS: Absolute Lymphocytes (CBC) 3.4 K/uL (0.7-4.9); Hematocrit 40.1 % (36.0-45.0); Lymphocytes % 29.7 % (15.3-44.8); MCV 82.5 fL (80-100); MPV 8.7 fL (7.6-11.3); RBC Red Blood Cell Count 4.86 M/uL (3.86-4.86)
[2022-03-25 04:14] LABS: ALT/SGPT 48 U/L (12-78); AST/SGOT 53 U/L (15-37); Alkaline Phosphatase 115 U/L (45-117); BUN Blood Urea Nitrogen 13 mg/dL (7-18); Bicarbonate 20 mmol/L (21-32); Glomerular Filtration Rate 100 ml/min (=/>90); Glucose Level 168 mg/dL (74-106); HDL Cholesterol 28 mg/dL (40-60); LDL Cholesterol, Calculated 96 mg/dL (<130); Potassium 3.6 mmol/L (3.5-5.1); Protein, Total 6.5 g/dL (6.4-8.2); Sodium Level 140 mmol/L (136-145); Troponin High Sensitivity 3.1 pg/mL (<58.9)
[2022-03-25 04:17] LABS: Bilirubin Total < 0.1 mg/dL (0.2-1.0)
[2022-03-25 05:40] VITALS: BMI 41.7
[2022-03-25] MEDS ORDERED: METOPROLOL TAR 25 MG TAB PO SCH (06:00)
[2022-03-25] MEDS ORDERED: POTASSIUM CL SA 10 MEQ TAB PO ONE (09:00)
[2022-03-25] MEDS ORDERED: ASPIRIN EC 81 MG TAB PO SCH (09:00)
[2022-03-25] MEDS ORDERED: ENOXAPARIN 40 MG/0.4 ML SQ SCH (09:00)
--- NOTE | 2022-03-25 15:55 | EKG ---
Test Date: 2022-03-24 Test Time: 20:46:45 [place] Operator: NARENDRA MEASUREMENT RESULTS: Intervals: Rate: 106 NM: 146 QRSD: 76 QT: 342 QTc: 454 [place]: P: 34 NM: 146 QRS: -58 T: 25 INTERPRETIVE STATEMENTS: Sinus tachycardia Left axis deviation Inferior infarct, age undetermined Anterior infarct, age undetermined Abnormal ECG Compared to ECG 01/19/2022 20:33:22 Myocardial infarct finding now present Sinus rhythm no longer present Electronically Signed On 03-25-22 15:54:22 CDT by Edgar Bazzi
--- NOTE | 2022-03-25 17:00 | P.DS ---
Admission Date: 03/25/22 Discharge Date: 03/25/22 Primary Care Provider: Dr. Rosen Disposition: ROUTINE DISCHARGE Discharge Condition: GOOD Reason for Admission: Chest pain Consultations: 1. Cardiology Hospital Course: DIAGNOSES: # Atypical Chest Pain # Bipolar Disorder # Post-Traumatic Stress Disorder # Anxiety # Depression HOSPITAL COURSE: Ms. Charity Hanks is a 42 year old female with a past medical history significant for bipolar disorder, anxiety, depression, PTSD who was admitted to the [facility] on 03/25/2022 for chest pain. She was admitted to the Medicine service for further evaluation. Her EKG was without STEMI criteria. Her troponin trend was 3.3 -> <3.0 -> 3.1 -> 3.9. Her chest x-ray revealed, "no acute abnormalities displayed." CT chest angiogram revealed, "negative for a pulmonary embolism." Cardiology was consulted and she was evaluated by Dr. Bazzi. He has cleared her for discharge with an outpatient cardiac stress test. On 03/25/2022, she was seen on morning rounds and deemed medically stable for discharge. She was discharged with instructions to schedule follow-up appointments with her PCP (Dr. Rosen) in 3-5 days and Cardiology (Dr. Bazzi) in 3-5 days. She was given the opportunity to ask questions and reported no further questions. Furthermore, all questions were answered to the best of my ability. Today, I personally spent 25 minutes on her case, of which greater than 50% of the time was spent in patient education, counseling, and coordination of care as described above. Vital Signs/Physical Exam: Temp Pulse Resp BP Pulse Ox 97.6 F 55 16 104/64 96 03/25/22 16:00 03/25/22 16:00 03/25/22 16:00 03/25/22 16:00 03/25/22 16:00 General: Alert, In no apparent distress, Oriented x3 HEENT: Atraumatic, PERRLA, Mucous membr. moist/pink Neck: Supple, JVD not distended Respiratory: Clear to auscultation bilaterally, Normal air movement Cardiovascular: No edema, Regular rate/rhythm, Normal S1 S2 Gastrointestinal: Normal bowel sounds, Soft and benign, Non-distended, No tenderness, No rebound, No guarding Musculoskeletal: No clubbing Integumentary: No rashes Neurological: Normal speech, Cranial nerves 3-12 intact, Normal affect Laboratory Data at Discharge: WBC 11.50 K/uL (4.3-10.9) H 03/25/22 02:26 Hgb 13.6 g/dL (12.0-15.0) D 03/25/22 02:26 Hct 40.1 % (36.0-45.0) 03/25/22 02:26 Plt Count 310 K/uL (152-406) 03/25/22 02:26 PT 11.7 SECONDS (9.5-12.5) 03/24/22 21:32 INR 1.06 03/24/22 21:32 Sodium 140 mmol/L (136-145) 03/25/22 02:26 Potassium 3.6 mmol/L (3.5-5.1) 03/25/22 02:26 BUN 13 mg/dL (7-18) 03/25/22 02:26 Creatinine 0.76 mg/dL (0.55-1.3) 03/25/22 02:26 Glucose 168 mg/dL (74-106) H 03/25/22 02:26 Magnesium 1.8 mg/dL (1.8-2.4) 03/24/22 21:32 Total Bilirubin < 0.1 mg/dL (0.2-1.0) L 03/25/22 02:26 AST 53 U/L (15-37) H 03/25/22 02:26 ALT 48 U/L (12-78) 03/25/22 02:26 Alkaline Phosphatase 115 U/L (45-117) D 03/25/22 02:26 Triglycerides 310 mg/dL (<150) H 03/25/22 02:26 Cholesterol 186 mg/dL (<200) 03/25/22 02:26 HDL Cholesterol 28 mg/dL (40-60) L 03/25/22 02:26 Cholesterol/HDL Ratio 6.64 03/25/22 02:26 Lipase 132 U/L (73-393) 03/24/22 21:32 Home Medications: RX: Bupropion *Xl* [Wellbutrin XL*] 150 mg PO DAILY 03/25/22 RX: Docosahexanoic AC/Epa [Fish Oil 1,000 MG*] 1,000 mg PO DAILY 03/25/22 RX: Escitalopram Oxalate [Lexapro] 5 mg PO BEDTIME 03/25/22 RX: Melatonin [Melatonin*] 6 mg PO BEDTIME 03/25/22 RX: OLANZapine [Zyprexa] 15 mg PO BID 03/25/22 RX: Topiramate [Topamax] 200 mg PO BEDTIME 03/25/22 RX: Trazodone HCl [Desyrel] 100 mg PO BEDTIME 03/25/22 RX: methocarbamoL [Robaxin*] 750 mg PO TID 03/25/22 Physician Discharge Instructions: 1. Please schedule a follow-up appointment with your PCP (Dr. Rosen) in 3-5 days 2. Please schedule a follow-up appointment with Cardiology (Dr. Bazzi) in 3-5 days - He will schedule you for a heart ultrasound and possibly a cardiac stress test Diet: AHA Activity: Ad selin Followup: Aiden Rosen MD [Primary Care Provider] - Edgar Bazzi MD [ACTIVE - CAN ADMIT] - Time spent managing pt's care (in minutes): 25
[2022-03-25] MEDS ORDERED: ATORVASTATIN 40 MG TAB PO SCH (21:00)
--- NOTE | 2022-03-26 09:25 | CON ---
Date of Consultation: 03/25/2022 The patient is a 42-year-old female admitted to Dr. Severino on 03/25/2022. Reason For Consultation: Chest pain. History Of Present Illness: Ms. Hanks is 42, presumably had a history of heart attack at one i nt, but never had a heart catheterization. She was just told that according to her blood work many y ears ago. She has a history of bipolar disorder, anxiety, depression, posttraumatic stress disorder, hypertension, and dyslipidemia. She came in with pleuritic chest pain. When she takes a deep breat h, her pain gets worse. No nausea, vomiting, diaphoresis, PND, orthopnea, pedal edema, palpitations, or syncope. She denied fever or chills. Workup so far include troponin, BNP. Chest x-ray and CT o f the chest were negative. Her triglyceride was 310, glucose was 168. Continued to ask for morphine for pain. Past Medical History: Negative. Allergies: NONE. Review of Systems: Negative. Social History: Negative. Family History: Negative. Medications: At home include Cozaar, Wellbutrin, and Lexapro, although she stated she is not taking Cozaar. Physical Examination: General: No acute distress. Vital Signs: Stable, afebrile. HEENT: Exam is negative. Neck: Supple with no bruit. Chest: Clear. Cardiac: Exam revealed a regular rhythm and rate. No murmurs, gallops, or rubs. Abdomen: Benign. Extremities: No clubbing, cyanosis, or edema. Diagnostic Data: All normal. Impression And Plan: Atypical chest pain, most likely pleurisy or musculoskeletal. Myocardial infar ction has been ruled out. Chest x-ray, EKG, and troponins are all negative. I am comfortable with h er going home on a nonsteroidal antiinflammatory agent in addition to her medicine. I think it would be reasonable for her to have an outpatient stress test and an echocardiogram, but she can go home t alex as far as I am concerned. Her blood pressure is well controlled. She needs to get back on the Cozaar. She needs to get back on her statin medicine because of her elevated triglycerides. She may have diabetes, which needs to be followed and observed slowly. ROS/JAZMÍN Voice ID: [id number] Report ID: [id number]
[2022-03-26 13:46] VITALS: TEMP 98
[2022-03-26 13:50] VITALS: BP 122/82; O2SAT 99
== END 2022-03-25 18:39 | disposition home or self-care (01) ==
LOC: ER 20:27 → ERHOLD 03-25 00:39 → 2ND 03-25 01:01
PROVIDERS: ADMIT Internal Medicine; ATTEND Internal Medicine
DX: R07.89 Other chest pain (principal); F41.9 Anxiety disorder, unspecified; F32.A Depression, unspecified; F43.10 Post-traumatic stress disorder, unspecified; F31.9 Bipolar disorder, unspecified; E87.6 Hypokalemia; I25.2 Old myocardial infarction; E78.00 Pure hypercholesterolemia, unspecified; Z79.899 Other long term (current) drug therapy; Z90.49 Acquired absence of other specified parts of digestive tract; Z82.49 Family history of ischemic heart disease and other diseases of the circulatory system
CPT/HCPCS: 96365; 96361; 93005; 87088; 85025 ×2; 87086; 80048; 36415; 83735; 85610; 80061; 80076; 81003; 84484 ×4; 83690; 80053; 83880; 80307; 71275; 71045; 96375; 96372; 99285; 96366; 87811; Q9967; J1650 ×2; J2270 ×3; J7030; J2405; G0378 ×2

== ENCOUNTER 2022-04-01 20:11 | Emergency (ER) | payer BC ==
[2022-04-01 20:32] LABS: Urine Blood 3+ (Negative); Urine Glucose Negative (Negative); Urine Protein 2+ (Negative); Urine pH 5.5 (5.0-7.0)
[2022-04-01 21:29] LABS: Urine Bacteria <20 /HPF (<20); Urine Mucus Slight /HPF (None Seen); Urine RBC >50 /HPF (None Seen)
[2022-04-01 21:29] LABS: Absolute Lymphocytes (CBC) 3.2 K/uL (0.7-4.9); Hematocrit 41.9 % (36.0-45.0); Lymphocytes % 29.1 % (15.3-44.8); MCV 81.8 fL (80-100); MPV 7.9 fL (7.6-11.3); RBC Red Blood Cell Count 5.12 M/uL (3.86-4.86)
[2022-04-01] MEDS ORDERED: MORPHINE 4 MG/ML SYR ONE ×2 (21:39→23:02)
[2022-04-01] MEDS ORDERED: ONDANSETRON 4 MG/2 ML VIAL ONE (21:39)
[2022-04-01] MEDS ORDERED: NA CHLORIDE 0.9% 1,000 ML ONE (21:39)
[2022-04-01 21:41] LABS: Albumin 3.2 g/dL (3.4-5.0); Potassium 3.4 mmol/L (3.5-5.1)
[2022-04-01 21:54] LABS: Bilirubin Total 0.1 mg/dL (0.2-1.0); Protein, Total 7.1 g/dL (6.4-8.2)
--- NOTE | 2022-04-01 23:06 | RAD REPORT ---
EXAM DESCRIPTION: CT - Abdomen Pelvis W Contrast - 04/01/2022 10:35 pm CLINICAL HISTORY: RLQ, right flank pain COMPARISON: CT imaging 01/11/2022 TECHNIQUE: Biphasic, helical CT imaging of the abdomen and pelvis was performed following 100 ml non -ionic IV contrast. No oral contrast given. All CT scans are performed using dose optimization technique as appropriate and may include automated exposure control or mA/KV adjustment according to patient size. FINDINGS: No suspicious findings in the lung bases. The liver, spleen, and pancreas show no suspicious findings. Cholecystectomy clips are present. No ab normal biliary tree dilatation. Symmetric renal function is seen with no hydronephrosis or suspicious renal mass. No pyelonephritis o r acute parenchymal process. No bladder abnormalities. No adrenal abnormalities. Uterus and ovaries s how no suspicious findings. No dilated bowel loops or bowel wall thickening. A few small nonspecific small bowel loops are presen t. Moderate stool volume present in the colon. No appendicitis. No free air, free fluid or inflammat ory stranding. No hernia, mass or bulky lymphadenopathy. No suspicious bony findings. IMPRESSION: Contrast enhanced CT abdomen and pelvis showing no acute or emergent finding.
[2022-04-02] MEDS ORDERED: KETOROLAC 30 MG/ML INJ ONE (00:52)
[2022-04-02] MEDS ORDERED: DICYCLOMINE HCL 20 MG/2 ML AMP IM ONE (00:52)
[2022-04-02] MEDS ORDERED: FENTANYL CITR 100 MCG/2 ML ONE (00:52)
--- NOTE | 2022-04-02 01:02 | EDPHYS ---
Physician Documentation [facility] Name: Charity Hanks Age: 42 yrs Sex: Female : 1980 Arrival Date: 04/01/2022 Time: 20:14 Bed 15 Private MD: ED Physician Susie Pabon HPI: 04/01 21:00 This 42 yrs old Female presents to ER via EMS with complaints of Abdominal Pain. cp 21:00 The patient presents with abdominal pain right lower quadrant. Onset: The cp symptoms/episode began/occurred yesterday. The symptoms radiate to the right flank. Associated signs and symptoms: Pertinent positives: nausea and vomiting, diarrhea, vaginal spot bleeding, Pertinent negatives: blood in stools, dysuria, fever. The symptoms are described as crampy. Modifying factors: the symptoms are aggravated by movement, pressure. Severity of pain: in the emergency department the pain is unchanged despite EMS interventions. Historical: - Allergies: 20:22 No Known Allergies; hb - PMHx: 20:22 Anxiety; Hypercholesterolemia; Myocardial infarction; depressive disorder; manic; PTSD; hb - PSHx: 20:22 Cholecystectomy; Tonsillectomy; hb - Immunization history:: Adult Immunizations up to date. - Social history:: Smoking status: . ROS: 21:05 Constitutional: Negative for body aches, chills, fever, poor PO intake. cp 21:05 Eyes: Negative for injury, pain, redness, and discharge. cp 21:05 ENT: Negative for drainage from ear(s), ear pain, sore throat, difficulty swallowing, difficulty handling secretions. 21:05 Cardiovascular: Negative for chest pain, edema, palpitations. 21:05 Respiratory: Negative for cough, shortness of breath, wheezing. 21:05 Abdomen/GI: Positive for abdominal pain, nausea, vomiting, and diarrhea, Negative for constipation, hematemesis, black/tarry stool, rectal bleeding. 21:05 : Positive for vaginal spot bleeding, Negative for urinary symptoms. 21:05 Neuro: Negative for altered mental status, headache, weakness. 21:05 All other systems are negative. Exam: 21:10 Constitutional: The patient appears in no acute distress, alert, awake, non-toxic, well cp developed, well nourished, obese, uncomfortable. 21:10 Head/Face: Normocephalic, atraumatic. cp 21:10 Eyes: Periorbital structures: appear normal, Conjunctiva: normal, no exudate, no injection, Sclera: no appreciated abnormality, Lids and lashes: appear normal, bilaterally. 21:10 ENT: External ear(s): are unremarkable, Nose: is normal, Mouth: Lips: moist, Oral mucosa: pink and intact, moist, Posterior pharynx: Airway: no evidence of obstruction, patent. 21:10 Chest/axilla: Inspection: normal. 21:10 Cardiovascular: Rate: normal, Rhythm: regular. 21:10 Respiratory: the patient does not display signs of respiratory distress, Respirations: normal, no use of accessory muscles, no retractions, labored breathing, is not present, Breath sounds: are clear throughout, no decreased breath sounds, no stridor, no wheezing. 21:10 Abdomen/GI: Inspection: abdomen appears normal, Bowel sounds: active, all quadrants, Palpation: soft, in all quadrants, severe abdominal tenderness, in the right lower quadrant, rebound tenderness, is not appreciated, involuntary guarding, is not appreciated. 21:10 Back: pain, that is moderate, of the right low back, ROM is painful, with all movement. 21:10 Neuro: Orientation: to person, place \T\ time. Mentation: is normal. Vital Signs: 20:21 BP 154 / 91; Pulse 95; Resp 16; Temp 97.5(TE); Pulse Ox 98% on R/A; Weight 104.33 kg; hb Height 5 ft. 2 in. (157.48 cm); Pain 9/10; 21:55 Pain 2/10; ke1 04/02 01:08 Pain 1/10; ke1 01:08 Pain 1/10; ke1 01:09 BP 136 / 74; Pulse 89; Resp 17; Pulse Ox 100% on R/A; ke1 04/01 20:21 Body Mass Index 42.07 (104.33 kg, 157.48 cm) hb MDM: 04/01 20:54 Patient medically screened. cp 04/02 01:00 Data reviewed: vital signs, nurses notes, lab test result(s), radiologic studies, CT cp scan. 01:00 Differential diagnosis: appendicitis, gastritis, non-specific abd pain, cp Ureterolithiasis, urinary tract infection, colitis. Counseling: I had a detailed discussion with the patient and/or guardian regarding: the historical points, exam findings, and any diagnostic results supporting the discharge/admit diagnosis, lab results, radiology results, to return to the emergency department if symptoms worsen or persist or if there are any questions or concerns that arise at home. Response to treatment: the patient's symptoms have markedly improved after treatment. Special discussion: Based on the patient's Hx, exam, and Dx evaluation, there is no indication for emergent surgery or inpatient Tx. It is understood by the patient/guardian that if the Sx's persist or worsen they need to return immediately for re-evaluation. ED course: VSS. Pain and nausea markedly improved. No vomiting observed while monitoring patient. Will discharge to home for continued monitoring. 04/01 20:32 Order name: Urine Dipstick-Ancillary; Complete Time: 21:13 [facility] 04/01 20:38 Order name: Urine --Ancillary (enter results); Complete Time: 21:13 04/01 20:45 Order name: CBC with Diff; Complete Time: 22:39 04/01 20:45 Order name: CMP; Complete Time: 22:39 cp 04/01 23:23 Interpretation: Normal except: K 3.4; CL 111; GLUC 113; ALB 3.2; GFR 87; AST 10; BILIT cp 0.1; GLOB 3.9; A/G 0.8. 04/01 20:45 Order name: Lipase; Complete Time: 22:39 04/01 20:45 Order name: Urine Microscopic Only; Complete Time: 22:39 04/01 23:23 Interpretation: Normal except: UWBC 10-20; URBC >50. 04/01 21:15 Order name: CT Abd/Pelvis - IV Contrast Only; Complete Time: 23:21 04/01 23:22 Interpretation: Report reviewed. 04/01 21:40 Order name: Urine Culture [facility] 04/01 20:45 Order name: IV Saline Lock; Complete Time: 21:10 04/01 20:45 Order name: Labs collected and sent; Complete Time: 21:10 04/02 00:20 Order name: PO challenge; Complete Time: 00:49 cp Administered Medications: 04/01 21:37 Drug: NS 0.9% 1000 ml Route: IV; Rate: 1 bolus; Site: Other; ke1 23:00 Follow up: IV Status: Completed infusion ke1 21:37 Drug: Zofran (Ondansetron) 4 mg Route: IVP; Site: Other; ke1 21:55 Follow up: Response: Nausea is decreased ke1 21:37 Drug: morphine 4 mg Route: IVP; Infused Over: 4 mins; Site: Other; ke1 21:55 Follow up: Pain 2/10 Adult; Response: Pain is decreased ke1 22:59 Drug: morphine 4 mg Route: IVP; Infused Over: 4 mins; Site: Other; ke1 23:15 Follow up: Response: Pain is decreased ke1 04/02 00:48 Drug: Dicyclomine 20 mg Route: IM; Site: left ventrogluteal; ke1 01:08 Follow up: Response: Marked relief of symptoms ke1 00:48 Drug: Ketorolac 30 mg Route: IVP; Site: Other; ke1 01:08 Follow up: Response: Marked relief of symptoms ke1 01:08 Follow up: Pain 1/10 Adult ke1 00:48 Drug: fentaNYL (PF) 25 mcg Route: IVP; Site: Other; ke1 01:08 Follow up: Pain 1/10 Adult; Response: Marked relief of symptoms ke1 Disposition: 02:04 STAFF ATTESTATION STATEMENT: I was immediately available onsite in the emergency sd2 department for consultation in the care of this patient. I did not see or examine this patient. Susie Pabon MD. Disposition Summary: 04/02/22 01:01 Discharge Ordered Location: Home cp Problem: new cp Symptoms: have improved cp Condition: Stable cp Diagnosis - Diarrhea, unspecified cp - Nausea with vomiting, unspecified cp Followup: cp - With: Private Physician - When: 1 - 2 days - Reason: Recheck today's complaints Discharge Instructions: - Discharge Summary Sheet cp - Food Choices to Help Relieve Diarrhea, Adult cp - Diarrhea, Adult cp - Nausea and Vomiting, Adult cp Forms: - Medication Reconciliation Form cp - Thank You Letter cp - Antibiotic Education cp - Prescription Opioid Use cp Prescriptions: - Ibuprofen 800 mg Oral Tablet - take 1 tablet by ORAL route every 8 hours As needed take with food; 30 tablet; cp Refills: 0, Product Selection Permitted - promethazine 25 mg Oral Tablet - take 1 tablet by ORAL route every 6 hours As needed; 20 tablet; Refills: 0, cp Product Selection Permitted - dicyclomine 20 mg Oral Tablet - take 1 tablet by ORAL route 4 times per day; 30 tablet; Refills: 0, Product cp Selection Permitted Signatures: Dispatcher [employer] EDMS Mayank Arvizu PA PA cp Regina Gibson RN RN hb Ebrottie, Kouassi, RN RN keSusie Chopra MD MD sd2 Corrections: (The following items were deleted from the chart) 04/01 23:23 23:23 Normal except: K 3.4; CL 111; GLUC 113; ALB 3.2; GFR 87. cp cp 04/02 01:02 01:01 Lower abdominal pain, unspecified cp cp
--- NOTE | 2022-04-02 01:02 | ER ---
[facility] Name[facility] Charity [facility] Age: 42 yrs Sex: Female : 1980 Arrival Date: 04/01/2022 Time: 20:14 Bed 15 Private MD: Diagnosis: Diarrhea, unspecified;Nausea with vomiting, unspecified Presentation: 04/01 20:21 Chief complaint: Right sided abdominal pain and N/V/D since yesterday. Not tolerating hb fluids. Zofran 4mg IM administered [employer]. Coronavirus screen: Client presents with at least one sign or symptom that may indicate coronavirus-19. Standard/surgical mask placed on the client. Provider contacted for isolation considerations. Ebola Screen: No symptoms or risks identified at this time. Risk Assessment: Do you want to hurt yourself or someone else? Patient reports no desire to harm self or others. Onset of symptoms was March 31, 2022. 20:21 Method Of Arrival: EMS: [facility] 20:21 Acuity: CARLOS 3 hb 21:12 Initial Sepsis Screen: Does the patient meet any 2 criteria? No. Patient's initial ke1 sepsis screen is negative. Does the patient have a suspected source of infection? No. Patient's initial sepsis screen is negative. Triage Assessment: 21:11 General: Appears uncomfortable, Behavior is appropriate for age. Pain: Complains of ke1 pain in abdomen Pain does not radiate. Pain currently is 7 out of 10 on a pain scale. at worst was 10 out of 10 on a pain scale. level that patient reports is acceptable is 4 out of 10 on a pain scale. Quality of pain is described as crampy. GI: Abdomen is round. Historical: - Allergies: 20:22 No Known Allergies; hb - PMHx: 20:22 Anxiety; Hypercholesterolemia; Myocardial infarction; depressive disorder; manic; PTSD; hb - PSHx: 20:22 Cholecystectomy; Tonsillectomy; hb - Immunization history:: Adult Immunizations up to date. - Social history:: Smoking status: . Screenin:11 Abuse screen: Denies threats or abuse. Nutritional screening: No deficits noted. ke1 Tuberculosis screening: No symptoms or risk factors identified. Fall Risk None identified. Assessment: 21:11 GI: Bowel sounds present X 4 quads. Abd is soft Abdomen is tender to palpation in right ke1 lower quadrant and left lower quadrant. 21:36 Pain: Complains of pain in abdomen Pain currently is 8 out of 10 on a pain scale. ke1 22:30 Pain: Complains of pain in abdomen Pain currently is 6 out of 10 on a pain scale. ke1 04/02 00:38 Pain: Complains of pain in abdomen Pain currently is 8 out of 10 on a pain scale. ke1 01:09 Reassessment: Patient states feeling better. Patient states symptoms have improved. ke1 Vital Signs: 04/01 20:21 BP 154 / 91; Pulse 95; Resp 16; Temp 97.5(TE); Pulse Ox 98% on R/A; Weight 104.33 kg; hb Height 5 ft. 2 in. (157.48 cm); Pain 9/10; 21:55 Pain 2/10; ke1 04/02 01:08 Pain 1/10; ke1 01:08 Pain 1/10; ke1 01:09 BP 136 / 74; Pulse 89; Resp 17; Pulse Ox 100% on R/A; ke1 04/01 20:21 Body Mass Index 42.07 (104.33 kg, 157.48 cm) hb ED Course: 04/01 20:14 Patient arrived in ED. ja2 20:22 Triage completed. hb 20:22 Arm band placed on. hb 20:39 Mayank Arvizu PA is PHCP. cp 20:39 Susie Pabon MD is Attending Physician. cp 20:48 Anahy Peñaolza, JAMES is Primary Nurse. ke1 21:09 Inserted saline lock: 22 gauge in right ,using aseptic technique. back of arm. ke1 21:10 CBC with Diff Sent. ke1 21:10 CMP Sent. ke1 21:10 Lipase Sent. ke1 21:12 Bed in low position. Call light in reach. ke1 22:37 CT Abd/Pelvis - IV Contrast Only In Process Unspecified. EDMS 04/02 01:09 No provider procedures requiring assistance completed. IV discontinued. ke1 Administered Medications: 04/01 21:37 Drug: NS 0.9% 1000 ml Route: IV; Rate: 1 bolus; Site: Other; ke1 23:00 Follow up: IV Status: Completed infusion ke1 21:37 Drug: Zofran (Ondansetron) 4 mg Route: IVP; Site: Other; ke1 21:55 Follow up: Response: Nausea is decreased ke1 21:37 Drug: morphine 4 mg Route: IVP; Infused Over: 4 mins; Site: Other; ke1 21:55 Follow up: Pain 2/10 Adult; Response: Pain is decreased ke1 22:59 Drug: morphine 4 mg Route: IVP; Infused Over: 4 mins; Site: Other; ke1 23:15 Follow up: Response: Pain is decreased ke1 04/02 00:48 Drug: Dicyclomine 20 mg Route: IM; Site: left ventrogluteal; ke1 01:08 Follow up: Response: Marked relief of symptoms ke1 00:48 Drug: Ketorolac 30 mg Route: IVP; Site: Other; ke1 01:08 Follow up: Response: Marked relief of symptoms ke1 01:08 Follow up: Pain 07/17 Adult ke1 00:48 Drug: fentaNYL (PF) 25 mcg Route: IVP; Site: Other; ke1 01:08 Follow up: Pain 07/17 Adult; Response: Marked relief of symptoms ke1 Medication: 01:09 VIS not applicable for this client. ke1 Outcome: 01:01 Discharge ordered by . laura 01:09 Discharged to home ambulatory. ke1 01:09 Condition: good 01:09 Discharge instructions given to patient. 01:11 Patient left the ED. ke1 Signatures: Dispatcher [employer] EDMS Mayank Arvizu PA PA cp Baxter, Heather, RN RN hb Alexander, Jessica ja2 Ebrottie, Kouassi, RN RN ke1
[2022-04-04 03:10] VITALS: BP 136/74; O2SAT 100
[2022-04-04 03:18] VITALS: TEMP 97.5
== END 2022-04-02 01:11 | disposition home or self-care (01) ==
LOC: ER 20:11
DX: R19.7 Diarrhea, unspecified (principal); R11.2 Nausea with vomiting, unspecified
CPT/HCPCS: 87088; 85025; 87086; 36415; 81025; 83690; 80053; 74177; Q9967; J0500; J3010; J7030; J2405; 81003; 81015; 96361; 96372; 96374; 96375; 99284

== ENCOUNTER 2022-06-10 16:25 | Emergency (ER) | payer BC ==
[2022-06-10 17:30] LABS: Urine Blood Negative (Negative); Urine Glucose Negative (Negative); Urine Protein Negative (Negative); Urine Specific Gravity >=1.030 (1.005-1.030)
[2022-06-10 17:34] LABS: Absolute Lymphocytes (CBC) 1.9 K/uL (0.7-4.9); Hematocrit 45.8 % (36.0-45.0); Lymphocytes % 13.2 % (15.3-44.8); MCV 82.3 fL (80-100); MPV 7.5 fL (7.6-11.3); RBC Red Blood Cell Count 5.57 M/uL (3.86-4.86)
[2022-06-10 17:42] LABS: Urine Bacteria <20 /HPF (<20); Urine Mucus Slight /HPF (None Seen); Urine RBC <5 /HPF (None Seen)
[2022-06-10 17:48] LABS: Albumin 3.8 g/dL (3.4-5.0); Bilirubin Total 0.3 mg/dL (0.2-1.0); Potassium 4.2 mmol/L (3.5-5.1)
[2022-06-10] MEDS ORDERED: NA CHLORIDE 0.9% 1,000 ML ONE (17:52)
[2022-06-10] MEDS ORDERED: MORPHINE 4 MG/ML SYR ONE (17:56)
[2022-06-10] MEDS ORDERED: ONDANSETRON 4 MG/2 ML VIAL ONE (17:56)
--- NOTE | 2022-06-10 18:49 | RAD REPORT ---
EXAM DESCRIPTION: CT - Abdomen Pelvis W Contrast - 06/10/2022 6:34 pm CLINICAL HISTORY: abd pain COMPARISON: Abdomen Pelvis W Contrast dated 04/01/2022 TECHNIQUE: Biphasic, helical CT imaging of the abdomen and pelvis was performed following 100 ml non -ionic IV contrast. Oral contrast: No. All CT scans are performed using dose optimization technique as appropriate and may include automated exposure control or mA/KV adjustment according to patient size. FINDINGS: No suspicious findings in the lung bases. The liver, spleen, and pancreas show no suspicious findings. Gallbladder is absent. Intrahepatic and extrahepatic biliary tree dilatation are present not substantially different from comparison. Duct st ones can be occult. No pancreatic or duodenal mass. This could also simply be the reservoir effect th at can occur after a cholecystectomy. Symmetric renal function is seen with no hydronephrosis or suspicious renal mass. No pyelonephritis o r acute parenchymal process. No bladder abnormalities. No urinary bladder abnormality. Uterus and ova can show no suspicious findings. The 2.7 centimeter left adrenal mass has not changed. This is most likely an incidental adenoma. No dilated bowel loops or bowel wall thickening. No appendicitis or active GI process present. No matthew e air, free fluid or inflammatory stranding. No hernia, mass or bulky lymphadenopathy. No suspicious bony findings. IMPRESSION: Contrast enhanced CT abdomen and pelvis showing no acute or emergent finding. Intrahepatic and extrahepatic biliary tree dilatation are present similar to comparison. This is prob ably the reservoir effect that can occur after a cholecystectomy. Duct stones can be occult. No pancr eatic or duodenal associated abnormality.
--- NOTE | 2022-06-10 19:21 | EDPHYS ---
Physician Documentation [facility] Name: Charity Hanks Age: 42 yrs Sex: Female : 1980 Arrival Date: 06/10/2022 Time: 16:30 Bed 27 Private MD: Aiden Rosen ED Physician Mayank Butler HPI: 06/10 19:52 This 42 yrs old Female presents to ER via Ambulatory with complaints of Abdominal Pain. kb 19:52 The patient presents with abdominal pain right lower quadrant. Onset: The kb symptoms/episode began/occurred this morning. The symptoms do not radiate. Associated signs and symptoms: Pertinent positives: nausea and vomiting, Pertinent negatives: constipation, diarrhea, fever. The symptoms are described as constant. Modifying factors: The symptoms are alleviated by nothing, the symptoms are aggravated by nothing. Severity of pain: At its worst the pain was moderate in the emergency department the pain is unchanged. The patient has experienced a previous episode. The patient has not recently seen a physician. Pt reports RLQ pain that started this morning with nausea and vomiting. . Historical: - Allergies: 16:31 No Known Allergies; ld1 - PMHx: 16:31 Anxiety; depressive disorder; Hypercholesterolemia; manic; Myocardial infarction; PTSD; ld1 - PSHx: 16:31 Cholecystectomy; Tonsillectomy; ld1 - Immunization history:: Adult Immunizations up to date, Client reports receiving the 2nd dose of the Covid vaccine. - Social history:: Smoking status: Patient denies any tobacco usage or history of. Patient/guardian denies using alcohol. ROS: 19:52 Constitutional: Negative for fever, chills, and weight loss. kb 19:52 Abdomen/GI: Positive for abdominal pain, nausea and vomiting, Negative for diarrhea, constipation. 19:52 All other systems are negative. Exam: 19:52 Constitutional: This is a well developed, well nourished patient who is awake, alert, kb and in no acute distress. Head/Face: Normocephalic, atraumatic. ENT: Moist Mucous membranes Cardiovascular: Regular rate and rhythm with a normal S1 and S2. No gallops, murmurs, or rubs. No pulse deficits. Respiratory: Respirations even and unlabored. No increased work of breathing. Talking in full sentences Skin: Warm, dry with normal turgor. Normal color. MS/ Extremity: Pulses equal, no cyanosis. Neurovascular intact. Full, normal range of motion. Neuro: Awake and alert, GCS 15, oriented to person, place, time, and situation. Moves all extremities. Normal gait. 19:52 Abdomen/GI: Inspection: abdomen appears normal, Bowel sounds: normal, in all quadrants, Palpation: soft, in all quadrants, mild abdominal tenderness, in the right lower quadrant. Vital Signs: 16:30 BP 130 / 86; Pulse 106; Resp 18; Temp 97.8(TE); Pulse Ox 98% on R/A; ld1 19:01 BP 164 / 99; Pulse 79; Resp 17; Pulse Ox 97% on R/A; mm9 19:30 BP 159 / 93; Pulse 79; Resp 18 S; Pulse Ox 98% on R/A; ha1 MDM: 16:55 Patient medically screened. kb 19:20 Data reviewed: vital signs, nurses notes. Data interpreted: Pulse oximetry: on room air kb is 97 %. Interpretation: normal. Counseling: I had a detailed discussion with the patient and/or guardian regarding: the historical points, exam findings, and any diagnostic results supporting the discharge/admit diagnosis, lab results, radiology results, the need for outpatient follow up, a family practitioner, to return to the emergency department if symptoms worsen or persist or if there are any questions or concerns that arise at home. 06/10 16:55 Order name: CBC with Diff; Complete Time: 17:41 kb 06/10 16:55 Order name: CMP; Complete Time: 17:50 kb 06/10 16:55 Order name: Lipase; Complete Time: 17:50 kb 06/10 16:55 Order name: Urine Microscopic Only; Complete Time: 17:44 kb 06/10 17:30 Order name: Urine --Ancillary (enter results) eb 06/10 17:30 Order name: Urine Dipstick-Ancillary; Complete Time: 17:36 EDMS 06/10 16:55 Order name: CT Abd/Pelvis - IV Contrast Only; Complete Time: 18:50 kb 06/10 16:55 Order name: IV Saline Lock; Complete Time: 17:34 kb 06/10 16:55 Order name: Labs collected and sent; Complete Time: 17:34 kb 06/10 16:55 Order name: Urine Dipstick-Ancillary (obtain specimen); Complete Time: 17:34 kb Administered Medications: 17:58 Drug: NS 0.9% 1000 ml Route: IV; Rate: 1000 ml; Site: left hand; hb 19:57 Follow up: Response: No adverse reaction; IV Status: Completed infusion; IV Intake: ha1 1000ml 17:58 Drug: morphine 4 mg Route: IVP; Infused Over: 4 mins; Site: left hand; hb 17:58 Drug: Zofran (Ondansetron) 4 mg Route: IVP; Site: left hand; hb 19:45 Drug: Ketorolac 15 mg Route: IVP; Site: left forearm; ha1 19:57 Follow up: Response: No adverse reaction ha1 Disposition Summary: 06/10/22 19:20 Discharge Ordered Location: Home kb Condition: Stable kb Diagnosis - Abdominal pain, Generalized kb Followup: kb - With: Emergency Department - When: As needed - Reason: Worsening of condition Followup: kb - With: Private Physician - When: 2 - 3 days - Reason: Recheck today's complaints, Continuance of care, Re-evaluation by your physician Discharge Instructions: - Discharge Summary Sheet kb - Abdominal Pain, Adult, [id number] kb Forms: - Medication Reconciliation Form kb - Thank You Letter kb - Antibiotic Education kb - Prescription Opioid Use kb Prescriptions: - Zofran 4 mg Oral Tablet - take 1 tablet by ORAL route every 6 hours As needed; 20 tablet; Refills: 0, kb Product Selection Permitted - dicyclomine 20 mg Oral Tablet - take 1 tablet by ORAL route 4 times per day As needed; 20 tablet; Refills: 0, kb Product Selection Permitted Signatures: Dispatcher [employer] Radha Hill, KAY-C NBA PLAYER-Regina Everett, RN RN Ayah Tadeo, RN RN ld1 Nelly Morales, RN RN ha1
--- NOTE | 2022-06-10 19:21 | ER ---
Nurse's Notes [facility] Name: Charity Hanks Age: 42 yrs Sex: Female : 1980 Arrival Date: 06/10/2022 Time: 16:30 Bed 27 Private MD: Aiden Rosen Diagnosis: Abdominal pain, Generalized Presentation: 06/10 16:30 Chief complaint: Patient states: RLQ Abdominal pain since this morning, N/V. ld1 Coronavirus screen: At this time, the client does not indicate any symptoms associated with coronavirus-19. Ebola Screen: No symptoms or risks identified at this time. Initial Sepsis Screen: Does the patient meet any 2 criteria? No. Patient's initial sepsis screen is negative. Does the patient have a suspected source of infection? No. Patient's initial sepsis screen is negative. Risk Assessment: Do you want to hurt yourself or someone else? Patient reports no desire to harm self or others. Onset of symptoms was June 10, 2022. 16:30 Method Of Arrival: Ambulatory ld1 16:30 Acuity: CARLOS 3 ld1 Triage Assessment: 16:31 General: Appears in no apparent distress. comfortable, Behavior is calm, cooperative, ld1 appropriate for age. Pain: Complains of pain in right lower quadrant Pain does not radiate. Pain currently is 8 out of 10 on a pain scale. EENT:. EENT: No signs and/or symptoms were reported regarding the EENT system. Neuro: Level of Consciousness is awake, alert, obeys commands, Oriented to person, place, time, situation. Cardiovascular: Capillary refill < 3 seconds Patient's skin is warm and dry. Respiratory: Airway is patent Respiratory effort is even, unlabored. GI: Abdomen is round non-distended, Reports lower abdominal pain. : No signs and/or symptoms were reported regarding the genitourinary system. Derm: No signs and/or symptoms reported regarding the dermatologic system. Historical: - Allergies: 16:31 No Known Allergies; ld1 - PMHx: 16:31 Anxiety; depressive disorder; Hypercholesterolemia; manic; Myocardial infarction; PTSD; ld1 - PSHx: 16:31 Cholecystectomy; Tonsillectomy; ld1 - Immunization history:: Adult Immunizations up to date, Client reports receiving the 2nd dose of the Covid vaccine. - Social history:: Smoking status: Patient denies any tobacco usage or history of. Patient/guardian denies using alcohol. Screenin:58 Abuse screen: Denies threats or abuse. Denies injuries from another. Nutritional ha1 screening: No deficits noted. Tuberculosis screening: No symptoms or risk factors identified. Fall Risk None identified. Assessment: 18:07 General: Appears in no apparent distress. Behavior is calm, cooperative. Neuro: Level hb of Consciousness is awake, alert, obeys commands, Oriented to person, place, time, situation. Cardiovascular: Patient's skin is warm and dry. Respiratory: Respiratory effort is even, unlabored, Respiratory pattern is regular, symmetrical. GI: Reports lower abdominal pain, upper abdominal pain. : No signs and/or symptoms were reported regarding the genitourinary system. EENT: No signs and/or symptoms were reported regarding the EENT system. Derm: Skin is pink, warm \T\ dry. Musculoskeletal: Reports body aches. Vital Signs: 16:30 BP 130 / 86; Pulse 106; Resp 18; Temp 97.8(TE); Pulse Ox 98% on R/A; ld1 19:01 BP 164 / 99; Pulse 79; Resp 17; Pulse Ox 97% on R/A; mm9 19:30 BP 159 / 93; Pulse 79; Resp 18 S; Pulse Ox 98% on R/A; ha1 ED Course: 16:30 Patient arrived in ED. mr 16:30 Aiden Rosen MD is Private Physician. mr 16:31 Triage completed. ld1 16:31 Arm band placed on right wrist. ld1 16:55 Radha Titus FNP-C [facility]. kb 16:55 Mayank Butler MD is Attending Physician. kb 17:34 Patient has correct armband on for positive identification. Bed in low position. Call mm9 light in reach. Pulse ox on. NIBP on. 17:34 Urine --Ancillary (enter results) Sent. mm9 17:34 CBC with Diff Sent. mm9 17:34 CMP Sent. mm9 17:34 Lipase Sent. mm9 17:34 Urine Microscopic Only Sent. mm9 17:34 Initial lab(s) drawn, by me, sent to lab. Urine collected: clean catch specimen, mm9 cloudy. Maintain EMS IV. Dressing intact. 17:49 Regina Gibson, RN is Primary Nurse. hb 18:07 Inserted saline lock: 22 gauge in left forearm, using aseptic technique. hb 18:36 CT Abd/Pelvis - IV Contrast Only In Process Unspecified. EDMS 19:59 No provider procedures requiring assistance completed. ha1 20:02 IV discontinued, intact, bleeding controlled, No redness/swelling at site. Pressure ha1 dressing applied. Administered Medications: 17:58 Drug: NS 0.9% 1000 ml Route: IV; Rate: 1000 ml; Site: left hand; hb 19:57 Follow up: Response: No adverse reaction; IV Status: Completed infusion; IV Intake: ha1 1000ml 17:58 Drug: morphine 4 mg Route: IVP; Infused Over: 4 mins; Site: left hand; hb 17:58 Drug: Zofran (Ondansetron) 4 mg Route: IVP; Site: left hand; hb 19:45 Drug: Ketorolac 15 mg Route: IVP; Site: left forearm; ha1 19:57 Follow up: Response: No adverse reaction ha1 Medication: 20:02 VIS not applicable for this client. ha1 Intake: 19:57 IV: 1000ml; Total: 1000ml. ha1 Outcome: 19:20 Discharge ordered by . kb 19:59 Discharged to home ambulatory. ha1 19:59 Condition: stable 19:59 Discharge instructions given to patient, Instructed on discharge instructions, follow up and referral plans. medication usage, Demonstrated understanding of instructions, follow-up care, medications. 20:02 Patient left the ED. ha1 Signatures: Dispatcher [employer] EDMS Radha Titus, KAY-C BINGO MANAGER-Jina Alie Hanson Regina Davison, RN RN Ayah Tadeo, RN RN [email or web address] Nelly Morales, RN RN ha1 Omaira Heard mm9
[2022-06-10] MEDS ORDERED: KETOROLAC 30 MG/ML INJ ONE (19:48)
[2022-06-10 21:16] VITALS: TEMP 97.8
[2022-06-10 21:27] VITALS: BP 159/93; O2SAT 98
== END 2022-06-10 20:02 | disposition home or self-care (01) ==
LOC: ER 16:25
DX: R10.84 Generalized abdominal pain (principal)
CPT/HCPCS: 85025; 36415; 81025; 83690; 80053; 74177; 99284; Q9967; J7030; J2405; 81003; 81015

== ENCOUNTER 2022-08-28 14:53 | Emergency (ER) | payer BC ==
[2022-08-28] MEDS ORDERED: MORPHINE 4 MG/ML SYR ONE ×2 (15:33→17:23)
[2022-08-28] MEDS ORDERED: ONDANSETRON 4 MG/2 ML VIAL ONE (15:33)
--- NOTE | 2022-08-28 16:13 | RAD REPORT ---
[facility] CLINICAL HISTORY: CHEST PAIN COMPARISON: Chest Single View dated 03/24/2022; Chest Single View dated 01/19/2022; Chest Single View dated 01/11/2022; Chest Single View dated 12/06/2021 TECHNIQUE: Portable AP view of the chest. FINDINGS: Decreased inspiratory effort somewhat limits evaluation. The lungs are clear. No pneumotho rax or effusion. The cardiomediastinal contours are unremarkable. IMPRESSION: No acute cardiopulmonary process.
[2022-08-28 16:26] LABS: Absolute Lymphocytes (CBC) 3.3 K/uL (0.7-4.9); Hematocrit 40.3 % (36.0-45.0); Lymphocytes % 28.8 % (15.3-44.8); MCV 81.8 fL (80-100); MPV 7.7 fL (7.6-11.3); RBC Red Blood Cell Count 4.93 M/uL (3.86-4.86)
[2022-08-28 16:51] LABS: Troponin High Sensitivity 3.6 pg/mL (<58.9)
[2022-08-28 16:53] LABS: Potassium 2.9 mmol/L (3.5-5.1)
--- NOTE | 2022-08-28 16:56 | ER ---
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 Coronavirus screen: Vaccine status: Patient reports receiving the 2nd dose of the covid vaccine. Ebola Screen: No symptoms or risks identified at this time. Initial Sepsis Screen: Does the patient meet any 2 criteria? No. Patient's initial sepsis screen is negative. Does the patient have a suspected source of infection? No. Patient's initial sepsis screen is negative. Risk Assessment: Do you want to hurt yourself or someone else? Patient reports no desire to harm self or others. Onset of symptoms was August 28, 2022. 15:06 Method Of Arrival: EMS: [place] [id number] 15:06 Acuity: CARLOS 3 eh3 Triage Assessment: 15:07 General: Appears distressed, uncomfortable, Behavior is cooperative, appropriate for eh3 age, anxious. Pain: Complains of pain in anterior aspect of right upper chest Pain radiates to right arm Pain currently is 9 out of 10 on a pain scale. Quality of pain is described as stabbing, Pain began 1 hour ago. Is continuous. EENT: No signs and/or symptoms were reported regarding the EENT system. Neuro: Level of Consciousness is awake, alert, obeys commands, Oriented to person, place, time, situation. Cardiovascular: Capillary refill < 3 seconds Patient's skin is warm and dry. Respiratory: Airway is patent Respiratory effort is even, unlabored, Respiratory pattern is regular, symmetrical. GI: No signs and/or symptoms were reported involving the gastrointestinal system. Abdomen is round non-distended. : No signs and/or symptoms were reported regarding the genitourinary system. Derm: No signs and/or symptoms reported regarding the dermatologic system. Skin is pink, warm \T\ dry. Musculoskeletal: No signs and/or symptoms reported regarding the musculoskeletal system. Circulation, motion, and sensation intact. Range of motion: intact in all extremities. 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 - Social history:: Smoking status: Patient reports the use of cigarette tobacco products, smokes one-half pack cigarettes per day, Patient/guardian denies using alcohol. - Family history:: not pertinent. - Hospitalizations: : No recent hospitalization is reported. Screenin:09 [facility] ED Fall Risk Assessment (Adult) Score/Fall Risk Level 0 - 2 = Low Risk. Abuse eh3 screen: Denies threats or abuse. Denies injuries from another. Nutritional screening: No deficits noted. Tuberculosis screening: No symptoms or risk factors identified. Assessment: 15:09 Reassessment: No changes from previously documented assessment. See triage assessment. eh3 Pain: Complains of pain in anterior aspect of right upper chest Pain radiates to right arm Pain currently is 9 out of 10 on a pain scale. Quality of pain is described as stabbing, Pain began 1 hour ago. Is continuous. 16:00 Reassessment: Patient appears in no apparent distress at this time. Patient and/or 3 family updated on plan of care and expected duration. Pain level reassessed. Patient is alert, oriented x 3, equal unlabored respirations, skin warm/dry/pink. 17:00 Reassessment: Patient appears in no apparent distress at this time. Patient and/or 3 family updated on plan of care and expected duration. Pain level reassessed. Patient is alert, oriented x 3, equal unlabored respirations, skin warm/dry/pink. Vital Signs: 15:06 BP 133 / 77; Pulse 83; Resp 15; Temp 98.3(O); Pulse Ox 95% on R/A; Weight 99.79 kg; eh3 Height 5 ft. 2 in. (157.48 cm); Pain 9/10; 16:00 BP 133 / 77; Pulse 77; Resp 18; Pulse Ox 98% on R/A; eh3 17:00 BP 128 / 74; Pulse 69; Resp 18; Pulse Ox 98% on R/A; eh3 15:06 Body Mass Index 40.24 (99.79 kg, 157.48 cm) eh3 ED Course: 15:06 Patient arrived in ED. eh3 15:07 Triage completed. eh3 15:07 Arm band placed on. eh3 15:09 Patient has correct armband on for positive identification. Bed in low position. Call eh3 light in reach. Side rails up X2. Client placed on continuous cardiac and pulse oximetry monitoring. NIBP monitoring applied. Door closed. Noise minimized. 15:09 Patient maintains SpO2 saturation greater than 95% on room air. eh3 15:14 Carmine Jackson MD is Attending Physician. rn 15:23 Tammy Jaquez RN is Primary Nurse. eh3 15:50 Inserted saline lock: 22 gauge in right wrist, using aseptic technique. Blood collected.eh3 16:55 Neil Arthur MD is Referral Physician. rn 17:35 No provider procedures requiring assistance completed. IV discontinued, intact, eh3 bleeding controlled, No redness/swelling at site. Pressure dressing applied. Administered Medications: 16:00 Drug: morphine 4 mg Route: IVP; Infused Over: 4 mins; Site: right wrist; eh3 16:30 Follow up: Response: Pain is decreased eh3 16:00 Drug: Zofran (Ondansetron) 4 mg Route: IVP; Site: right wrist; eh3 16:30 Follow up: Response: No adverse reaction eh3 17:24 Drug: morphine 4 mg Route: IVP; Infused Over: 4 mins; Site: right wrist; eh3 17:32 Follow up: Response: Pain is decreased eh3 17:30 Drug: Potassium Chloride 40 mEq Route: PO; eh3 17:33 Follow up: Response: Medication administered at discharge. eh3 Medication: 17:34 VIS not applicable for this client. eh3 Outcome: 16:56 Discharge ordered by . rn 17:36 Discharged to home ambulatory. eh3 17:36 Condition: stable 17:36 Discharge instructions given to patient, Instructed on discharge instructions, follow up and referral plans. Demonstrated understanding of instructions, follow-up care. 17:36 Patient left the ED. eh3 Signatures: Carmine Jackson MD MD rn Hall, Erin, RN RN eh3 Corrections: (The following items were deleted from the chart) 15:08 15:07 PMHx: manic; eh3 eh3
--- NOTE | 2022-08-28 16:56 | EDPHYS ---
Physician Documentation [facility] Name: Charity Hanks Age: 42 yrs Sex: Female : 1980 Arrival Date: 08/28/2022 Time: 15:06 Bed 16 Private MD: ED Physician Carmine Jackson HPI: 08/28 15:53 This 42 yrs old Female presents to ER via EMS with complaints of Chest Pain. rn 15:53 The patient or guardian reports chest pain that is located primarily in the substernal rn area. Onset: just prior to arrival. The pain radiates to the left shoulder. Associated signs and symptoms: Pertinent positives: None. Pertinent negatives: abdominal pain, cough, diaphoresis, shortness of breath, syncope, vomiting. The chest pain is described as sharp, stabbing. Modifying factors: The symptoms are alleviated by nothing. the symptoms are aggravated by nothing. Severity of pain: At its worst the pain was moderate in the emergency department the pain is unchanged. The patient has experienced similar episodes in the past. The patient has not recently seen a physician. Pt reports substernal chest pain, radiates to left shoulder, no sob, was about to eat a sandwich. Has had this multiple times, states without clear diagnosis. No illness/fever/trauma/hemoptysis/hx of dvt or PE/abd pain/vomiting.. 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 - Social history:: Smoking status: Patient reports the use of cigarette tobacco products, smokes one-half pack cigarettes per day, Patient/guardian denies using alcohol. - Family history:: not pertinent. - Hospitalizations: : No recent hospitalization is reported. ROS: 15:53 Constitutional: Negative for fever, chills, and weight loss, Eyes: Negative for injury, rn pain, redness, and discharge, Neck: Negative for injury, pain, and swelling, Cardiovascular: Negative for palpitations, and edema, Respiratory: Negative for shortness of breath, cough, wheezing, and pleuritic chest pain, Abdomen/GI: Negative for abdominal pain, nausea, vomiting, diarrhea, and constipation, MS/Extremity: Negative for injury and deformity, Skin: Negative for injury, rash, and discoloration, Neuro: Negative for headache, weakness, numbness, tingling, and seizure. Exam: 15:53 Constitutional: This is a well developed, well nourished patient who is awake, alert, rn appears anxious Head/Face: Normocephalic, atraumatic. Cardiovascular: Regular rate and rhythm. No pulse deficits. Respiratory: No increased work of breathing, no retractions or nasal flaring. Abdomen/GI: Soft, non-tender Skin: Warm, dry MS/ Extremity: Pulses equal, no cyanosis. Neurovascular intact. Full, normal range of motion. Equal circumference. Neuro: Awake and alert, GCS 15 15:56 ECG was reviewed by the Attending Physician. rn Vital Signs: 15:06 BP 133 / 77; Pulse 83; Resp 15; Temp 98.3(O); Pulse Ox 95% on R/A; Weight 99.79 kg; 3 Height 5 ft. 2 in. (157.48 cm); Pain 9/10; 16:00 BP 133 / 77; Pulse 77; Resp 18; Pulse Ox 98% on R/A; 3 17:00 BP 128 / 74; Pulse 69; Resp 18; Pulse Ox 98% on R/A; 3 15:06 Body Mass Index 40.24 (99.79 kg, 157.48 cm) [facility] MDM: 15:14 Patient medically screened. rn 16:54 Differential diagnosis: acute pericarditis, anxiety, chest wall pain, costochondritis, rn esophagitis, gastroesophageal reflux disease (GERD), pleurisy, pneumonia, pneumothorax, pulmonary embolus. HEART Score: History: Slightly Suspicious (0), ECG: Non specific repolarization disturbance / LBTB / PM (1), Age: < or = 45 years (0), Risk Factors: 1 or 2 risk factors (1), Troponin: < or = 1 x Normal Limit (0), Total Score = 2. Data reviewed: vital signs, nurses notes, lab test result(s), EKG, radiologic studies, plain films, and as a result, I will discharge patient. Independent interpretation of the following test(s) in the Emergency Department EKG: See my EKG interpretation above X-Ray: My interpretation is CXR images neg for pneumothorax or pneumonia. Counseling: I had a detailed discussion with the patient and/or guardian regarding: the historical points, exam findings, and any diagnostic results supporting the discharge/admit diagnosis, lab results, radiology results, the need for outpatient follow up, to return to the emergency department if symptoms worsen or persist or if there are any questions or concerns that arise at home. Special discussion: Based on the patient's history, exam, and Dx evaluation, there is no indication for emergent intervention or inpatient Tx. It is understood by the patient/guardian that if the Sx's persist or worsen they need to return immediately for re-evaluation. I discussed with the patient/guardian in detail that at this point there is no indication for admission to the hospital. It is understood, however, that if the symptoms persist or worsen the patient needs to return immediately for re-evaluation. 08/28 15:18 Order name: Basic Metabolic Panel rn 08/28 15:18 Order name: CBC with Diff rn 08/28 15:18 Order name: D-Dimer rn 08/28 15:18 Order name: NT PRO-BNP rn 08/28 15:18 Order name: Troponin HS rn 08/28 16:29 Order name: CBC with Automated Diff; Complete Time: 16:45 EDKY 08/28 15:18 Order name: XRAY Chest (1 view) rn 08/28 16:13 Order name: RAD; Complete Time: 16:15 EDKY 08/28 16:30 Order name: D-Dimer; Complete Time: 16:45 EDKY 08/28 16:53 Order name: Basic Metabolic Panel; Complete Time: 17:03 EDKY 08/28 16:53 Order name: Troponin High Sensitivity; Complete Time: 17:03 EDKY 08/28 16:53 Order name: NT PRO-BNP; Complete Time: 17:03 EDKY 08/28 15:18 Order name: EKG; Complete Time: 15:19 rn 08/28 15:18 Order name: Cardiac monitoring; Complete Time: 15:24 rn 08/28 15:18 Order name: EKG - Nurse/Tech; Complete Time: 15:24 rn 08/28 15:18 Order name: IV Saline Lock; Complete Time: 16:20 rn 08/28 15:18 Order name: Labs collected and sent; Complete Time: 16:20 rn 08/28 15:18 Order name: O2 Per Protocol; Complete Time: 15:24 rn 08/28 15:18 Order name: O2 Sat Monitoring; Complete Time: 15:24 rn EC:56 Rate is 76 beats/min. Rhythm is regular. Left axis deviation noted. QRS is positive in rn lead I and negative in lead aVF. LA interval is normal. QRS interval is normal. QT interval is normal. No Q waves. T waves are Normal. No ST changes noted. Clinical impression: NSR w/ Non-specific ST/T Changes. Interpreted by me. Reviewed by me. Administered Medications: 16:00 Drug: morphine 4 mg Route: IVP; Infused Over: 4 mins; Site: right wrist; eh3 16:30 Follow up: Response: Pain is decreased eh3 16:00 Drug: Zofran (Ondansetron) 4 mg Route: IVP; Site: right wrist; eh3 16:30 Follow up: Response: No adverse reaction eh3 17:24 Drug: morphine 4 mg Route: IVP; Infused Over: 4 mins; Site: right wrist; eh3 17:32 Follow up: Response: Pain is decreased eh3 17:30 Drug: Potassium Chloride 40 mEq Route: PO; eh3 17:33 Follow up: Response: Medication administered at discharge. eh3 Disposition Summary: 08/28/22 16:56 Discharge Ordered Location: Home rn Problem: an ongoing problem rn Symptoms: have improved rn Condition: Stable rn Diagnosis - Chest pain, unspecified rn Followup: rn - With: Neil Arthur MD - When: As needed - Reason: Recheck today's complaints, Re-evaluation by your physician Discharge Instructions: - Discharge Summary Sheet rn - Nonspecific Chest Pain, Adult rn Forms: - Medication Reconciliation Form rn - Thank You Letter rn - Antibiotic alternative dispute resolution mediator - Prescription Opioid Use rn Signatures: Dispatcher [employer] Carmine Callejas MD MD rn Hall, Erin, RN RN 3 Corrections: (The following items were deleted from the chart) 15:08 15:07 PMHx: manic; 3 3
[2022-08-28] MEDS ORDERED: POTASSIUM CL SA 10 MEQ TAB PO ONE (17:30)
[2022-08-28 18:07] VITALS: TEMP 98.3
[2022-08-28 18:08] VITALS: O2SAT 98
[2022-08-28 18:14] VITALS: BP 128/74
--- NOTE | 2022-08-29 15:23 | EKG ---
Test Date: 2022-08-28 Test Time: 15:21:50 Printing Plate Maker: DOROTHY MEASUREMENT RESULTS: Intervals: Rate: 76 WV: 154 QRSD: 88 QT: 410 QTc: 461 [place]: P: 37 WV: 154 QRS: -38 T: 33 INTERPRETIVE STATEMENTS: Normal sinus rhythm Left axis deviation Cannot rule out Anterior infarct, age undetermined Abnormal ECG Compared to ECG 03/24/2022 20:46:45 Sinus tachycardia no longer present Myocardial infarct finding still present Electronically Signed On 08-29-22 15:20:01 DEVELOPMENT DIRECTOR by Neil Arthur
== END 2022-08-28 17:36 | disposition home or self-care (01) ==
LOC: ER 14:53
DX: R07.89 Other chest pain (principal); F17.210 Nicotine dependence, cigarettes, uncomplicated; I10 Essential (primary) hypertension
CPT/HCPCS: 85025; 80048; 36415; 85379; 84484; 83880; 71045; J2405; 93005

== ENCOUNTER 2022-09-06 09:44 | Emergency (ER) | payer BC, SELFPAY ==
[2022-09-06 10:04] LABS: Urine Blood 1+ (Negative); Urine Glucose Negative (Negative); Urine Protein Negative (Negative); Urine Specific Gravity <=1.005 (1.005-1.030); Urine pH 5.5 (5.0-7.0)
[2022-09-06] MEDS ORDERED: KETOROLAC 30 MG/ML INJ ONE (10:12)
[2022-09-06] MEDS ORDERED: ONDANSETRON 4 MG/2 ML VIAL ONE (10:12)
[2022-09-06] MEDS ORDERED: NA CHLORIDE 0.9% 1,000 ML ONE (10:12)
[2022-09-06 10:23] LABS: Absolute Lymphocytes (CBC) 2.2 K/uL (0.7-4.9); Hematocrit 42.7 % (36.0-45.0); Lymphocytes % 21.9 % (15.3-44.8); MCV 82.4 fL (80-100); MPV 7.8 fL (7.6-11.3); RBC Red Blood Cell Count 5.19 M/uL (3.86-4.86)
[2022-09-06 10:24] LABS: Urine Specific Gravity/Preg 1.005 (1.005-1.030)
[2022-09-06 10:29] LABS: Urine Bacteria <20 /HPF (<20); Urine Mucus Slight /HPF (None Seen); Urine RBC <5 /HPF (None Seen)
[2022-09-06 10:45] LABS: Albumin 3.4 g/dL (3.4-5.0); Bilirubin Total 0.2 mg/dL (0.2-1.0); Potassium 3.6 mmol/L (3.5-5.1); Protein, Total 7.2 g/dL (6.4-8.2)
--- NOTE | 2022-09-06 10:55 | RAD REPORT ---
EXAM DESCRIPTION: CTStone Protocol - 09/06/2022 10:38 am CLINICAL HISTORY: FLANK PAIN COMPARISON: Abdomen Pelvis W Contrast dated 06/10/2022; Abdomen Pelvis W Contrast dated 04/01/2022 ; Abdomen Pelvis W Contrast dated 01/11/2022; Abdomen Pelvis W Contrast dated 10/11/2020 TECHNIQUE: CT of the abdomen and pelvis was performed. All CT scans are performed using dose optimization technique as appropriate and may include automated exposure control or mA/KV adjustment according to patient size. FINDINGS: Lower chest: No acute abnormality. Liver: No acute abnormality or suspicious lesions. Biliary: Cholecystectomy Stomach: No significant focal abnormality. Duodenum: No significant focal abnormality. Pancreas: No significant abnormality. Spleen: No significant abnormality. Adrenal: Benign left adrenal nodule. Kidney/ureter: No hydronephrosis. No renal calculi. Retroperitoneum: No retroperitoneal adenopathy. Vascular: No aneurysm. Bowel: No significant focal abnormality. Normal appendix. Peritoneum: No ascites or free air. Bladder: Grossly unremarkable. Reproductive: No adnexal masses. Bones: No acute fracture. Other: n/a IMPRESSION: No acute intra-abdominal or pelvic finding. No urinary tract calculi. Normal appendix.
[2022-09-06] MEDS ORDERED: MORPHINE 4 MG/ML SYR ONE (11:02)
--- NOTE | 2022-09-06 11:08 | ER ---
Nurse's Notes [facility] Name: Charity Hanks Age: 42 yrs Sex: Female : 1980 Arrival Date: 09/06/2022 Time: 09:45 Bed 18 Private MD: Aiden Rosen Diagnosis: Flank Pain;Dysuria Presentation: 09/06 09:49 Chief complaint: Patient states: left flank pain, dysuria, urinary frequency, fever x 2 aa5 days. 09:49 Coronavirus screen: fever. Ebola Screen: Patient denies travel to an Ebola-affected [facility] area in the 21 days before illness onset. Initial Sepsis Screen: Does the patient meet any 2 criteria? No. Patient's initial sepsis screen is negative. Does the patient have a suspected source of infection? No. Patient's initial sepsis screen is negative. Risk Assessment: Do you want to hurt yourself or someone else? Patient reports no desire to harm self or others. Onset of symptoms was 2022. 09:49 Acuity: CARLOS 3 aa5 09:49 Method Of Arrival: Ambulatory aa5 Triage Assessment: 09:50 General: Appears distressed, uncomfortable, obese, Behavior is cooperative, appropriate bp for age, anxious. Pain: Complains of pain in abdomen. EENT: No deficits noted. Neuro: No deficits noted. Cardiovascular: No deficits noted. Respiratory: No deficits noted. GI: No signs and/or symptoms were reported involving the gastrointestinal system. : Reports burning with urination. Derm: No deficits noted. Musculoskeletal: No deficits noted. Historical: - Allergies: 09:55 No Known Allergies; aa5 - PMHx: 09:55 Anxiety; depressive disorder; Hypercholesterolemia; Myocardial infarction; PTSD; aa5 - PSHx: 09:55 Cholecystectomy; Tonsillectomy; aa5 - Immunization history:: Adult Immunizations unknown. - Social history:: Smoking status: Patient reports the use of cigarette tobacco products, smokes one-half pack cigarettes per day. Screenin:50 [facility] ED Fall Risk Assessment (Adult) History of falling in the last 3 months, bp including since admission No falls in past 3 months (0 pts). Abuse screen: Denies threats or abuse. Denies injuries from another. Nutritional screening: No deficits noted. Tuberculosis screening: No symptoms or risk factors identified. Assessment: 09:50 General: SEE TRIAGE NOTE. bp 11:00 Reassessment: No changes from previously documented assessment. Patient and/or family bp updated on plan of care and expected duration. Pain level reassessed. 11:35 Reassessment: DC HOME. bp Vital Signs: 09:49 BP 139 / 73; Pulse 72; Resp 18 S; Temp 98.0(O); Pulse Ox 100% on R/A; Weight 99.79 kg aa5 (R); Height 5 ft. 2 in. (157.48 cm); 11:01 BP 100 / 57; Pulse 75; Resp 16; Pulse Ox 100% ; bp 09:49 Body Mass Index 40.24 (99.79 kg, 157.48 cm) aa5 ED Course: 09:45 Patient arrived in ED. am2 09:46 Aiden Rosen MD is Private Physician. am2 09:47 Radha Titus FNP-C is [facility]. kb 09:47 Carmine Jackson MD is Attending Physician. kb 09:49 Arm band placed on Patient placed in an exam room, on a stretcher. aa5 09:50 Patient has correct armband on for positive identification. Bed in low position. Call bp light in reach. Side rails up X 1. 09:55 Triage completed. aa5 09:59 Regulo Tavera, JAMES is Primary Nurse. bp 10:23 Inserted saline lock: 22 gauge in right wrist, using aseptic technique. Blood collected.bp 10:39 Stone Protocol In Process Unspecified. EDMS 11:35 No provider procedures requiring assistance completed. IV discontinued, intact, bp bleeding controlled, No redness/swelling at site. Pressure dressing applied. Administered Medications: 09:55 CANCELLED (Physician Discretion): Pepcid (famotidine) 20 mg IVP once; dilute with 10 mL kb 0.9% NaCl; give over 2 minutes 09:55 CANCELLED (Physician Discretion): Benadryl (diphenhydrAMINE) 12.5 mg IVP once kb 10:23 Drug: NS 0.9% 1000 ml Route: IV; Rate: 1 bolus; Site: right wrist; bp 11:34 Follow up: IV Status: Completed infusion; IV Intake: 1000ml bp 10:23 Drug: TORadol - (ketorolac) 15 mg Route: IVP; Site: right wrist; bp 11:35 Follow up: Response: No adverse reaction bp 10:23 Drug: Zofran (Ondansetron) 4 mg Route: IVP; Site: right wrist; bp 11:35 Follow up: Response: No adverse reaction bp 11:00 Drug: morphine 4 mg Route: IVP; Infused Over: 4 mins; Site: right wrist; bp 11:34 Follow up: Response: No adverse reaction; Pain is decreased bp Medication: 09:50 VIS not applicable for this client. bp Intake: 11:34 IV: 1000ml; Total: 1000ml. bp Outcome: 11:07 Discharge ordered by . kb 11:35 Discharged to home ambulatory. bp 11:35 Condition: stable 11:35 Discharge instructions given to patient, Instructed on discharge instructions, follow up and referral plans. medication usage, Demonstrated understanding of instructions, follow-up care, medications, Prescriptions given X 1. 11:36 Patient left the ED. bp Signatures: Dispatcher [employer] EDMS Radha Titus, KRYSTLE VILLANUEVA-Yamileth Daniel, RN RN aa5 Becky Edgar am2 Regulo Tavera, RN RN bp
--- NOTE | 2022-09-06 11:08 | EDPHYS ---
Physician Documentation [facility] Name: Charity Hanks Age: 42 yrs Sex: Female : 1980 Arrival Date: 09/06/2022 Time: 09:45 Bed 18 Private MD: Aiden Rosen ED Physician Carmine Jackson HPI: 09/06 11:04 This 42 yrs old Female presents to ER via Ambulatory with complaints of Urinary Problem.kb 11:04 The patient presents with flank pain, on the left, urinary symptoms, dysuria, kb frequency. Onset: The symptoms/episode began/occurred 2 day(s) ago. Modifying factors: The symptoms are alleviated by nothing, the symptoms are aggravated by nothing. Associated signs and symptoms: Pertinent positives: dysuria, fever, urinary frequency. Severity of symptoms: At their worst the symptoms were moderate, in the emergency department the symptoms are unchanged. The patient has not experienced similar symptoms in the past. The patient has not recently seen a physician. Historical: - Allergies: 09:55 No Known Allergies; aa5 - PMHx: 09:55 Anxiety; depressive disorder; Hypercholesterolemia; Myocardial infarction; PTSD; aa5 - PSHx: 09:55 Cholecystectomy; Tonsillectomy; aa5 - Immunization history:: Adult Immunizations unknown. - Social history:: Smoking status: Patient reports the use of cigarette tobacco products, smokes one-half pack cigarettes per day. ROS: 11:01 Constitutional: Negative for fever, chills, and weight loss. kb 11:01 : Positive for urinary symptoms, flank pain, urinary frequency, burning with urination. 11:01 All other systems are negative. Exam: 11:01 Constitutional: This is a well developed, well nourished patient who is awake, alert, kb and in no acute distress. Head/Face: Normocephalic, atraumatic. ENT: Moist Mucous membranes Cardiovascular: Regular rate and rhythm with a normal S1 and S2. No gallops, murmurs, or rubs. No pulse deficits. Respiratory: Respirations even and unlabored. No increased work of breathing. Talking in full sentences Abdomen/GI: Soft, non-tender. No distention Back: No spinal tenderness. No costovertebral tenderness. Full range of motion. Skin: Warm, dry with normal turgor. Normal color. MS/ Extremity: Pulses equal, no cyanosis. Neurovascular intact. Full, normal range of motion. Neuro: Awake and alert, GCS 15, oriented to person, place, time, and situation. Moves all extremities. Normal gait. Vital Signs: 09:49 BP 139 / 73; Pulse 72; Resp 18 S; Temp 98.0(O); Pulse Ox 100% on R/A; Weight 99.79 kg aa5 (R); Height 5 ft. 2 in. (157.48 cm); 11:01 BP 100 / 57; Pulse 75; Resp 16; Pulse Ox 100% ; bp 09:49 Body Mass Index 40.24 (99.79 kg, 157.48 cm) aa5 MDM: 09:48 Patient medically screened. kb 11:01 Differential diagnosis: UTI, pyelonephritis, kidney stone. Data reviewed: vital signs, kb nurses notes. Counseling: I had a detailed discussion with the patient and/or guardian regarding: the historical points, exam findings, and any diagnostic results supporting the discharge/admit diagnosis, lab results, radiology results, the need for outpatient follow up, a family practitioner, to return to the emergency department if symptoms worsen or persist or if there are any questions or concerns that arise at home. ED course: Patient is a 42-year-old female who presents for left flank pain, dysuria and urinary frequency for 2 days. Reports she has had low-grade fever. On exam patient has no abdominal tenderness, no CVA tenderness. Reports pain is better when pressure applied to the left flank. Respirations even and unlabored, lungs clear bilaterally. Patient is nontoxic in appearance. Tolerating p.o. intake. Serum labs and urinalysis obtained and reviewed. No acute findings. CT with IV contrast initially ordered to rule out pyelonephritis however urinalysis with micro came back without bacteria, white cells red cells. CT changed to without contrast to rule out kidney stone. CT without acute findings. Patient educated on diagnostic results and need for follow-up with PCP.. 03 09:56 Order name: CBC with Diff; Complete Time: 10:29 kb 09/06 09:56 Order name: CMP; Complete Time: 10:47 kb 09/06 09:56 Order name: Lipase; Complete Time: 10:47 kb 09/06 09:56 Order name: Urine Microscopic Only; Complete Time: 10:29 kb 09/06 09:56 Order name: IV Saline Lock; Complete Time: 10: kb 09/06 09:56 Order name: Labs collected and sent; Complete Time: 10: kb 09/06 09:56 Order name: Urine Dipstick-Ancillary (obtain specimen); Complete Time: 10: kb 09/06 10:05 Order name: Urine Dipstick-Ancillary; Complete Time: 10:29 EDMS 09/06 10:18 Order name: Urine --Ancillary (enter results); Complete Time: 10:29 bc6 09/06 10:32 Order name: Stone Protocol; Complete Time: 11:00 EDMS Administered Medications: 09:55 CANCELLED (Physician Discretion): Pepcid (famotidine) 20 mg IVP once; dilute with 10 mL kb 0.9% NaCl; give over 2 minutes 09:55 CANCELLED (Physician Discretion): Benadryl (diphenhydrAMINE) 12.5 mg IVP once kb 10:23 Drug: NS 0.9% 1000 ml Route: IV; Rate: 1 bolus; Site: right wrist; bp 11:34 Follow up: IV Status: Completed infusion; IV Intake: 1000ml bp 10:23 Drug: TORadol - (ketorolac) 15 mg Route: IVP; Site: right wrist; bp 11:35 Follow up: Response: No adverse reaction bp 10:23 Drug: Zofran (Ondansetron) 4 mg Route: IVP; Site: right wrist; bp 11:35 Follow up: Response: No adverse reaction bp 11:00 Drug: morphine 4 mg Route: IVP; Infused Over: 4 mins; Site: right wrist; bp 11:34 Follow up: Response: No adverse reaction; Pain is decreased bp Disposition: 17:26 Co-signature as Attending Physician, Carmine Jackson MD I reviewed the patient's care rn provided by the Advanced Practice Provider and agree with the diagnosis and treatment plan. Disposition Summary: 09/06/22 11:07 Discharge Ordered Location: Home kb Condition: Stable kb Diagnosis - Flank Pain kb - Dysuria kb Followup: kb - With: Emergency Department - When: As needed - Reason: Worsening of condition Followup: kb - With: Private Physician - When: 2 - 3 days - Reason: Recheck today's complaints, Continuance of care, Re-evaluation by your physician Discharge Instructions: - Discharge Summary Sheet kb - Dysuria kb - Flank Pain, Adult, [id number] kb Forms: - Medication Reconciliation Form kb - Thank You Letter kb - Antibiotic Education kb - Prescription Opioid Use kb Prescriptions: - Diclofenac Sodium 75 mg Oral tablet,delayed release (DR/EC) - take 1 tablet by ORAL route 2 times per day As needed; 30 tablet; Refills: 0, kb Product Selection Permitted Signatures: Dispatcher [employer] EDMS Radha Titus, KAY-C MEDICAL CLAIMS PROCESSOR-Carmine Henderson MD MD rn Yamileth Jolly, RN RN aa5 Regulo Tavera, RN RN bp Corrections: (The following items were deleted from the chart) 09:55 09:55 Pepcid (famotidine) 20 mg IVP once; dilute with 10 mL 0.9% NaCl; give over 2 kb minutes ordered. kb 09:55 09:55 Benadryl (diphenhydrAMINE) 12.5 mg IVP once ordered. kb kb 10:32 09:56 Abdomen Pelvis W Con+CT.RAD.BRZ ordered. EDMS EDMS
[2022-09-06 11:55] VITALS: TEMP 98; O2SAT 100
[2022-09-06 12:05] VITALS: BP 100/57
== END 2022-09-06 11:36 | disposition home or self-care (01) ==
LOC: ER 09:44
DX: R30.0 Dysuria (principal); R10.9 Unspecified abdominal pain
CPT/HCPCS: 36415; 74176; 76377; 80053; 81003; 81015; 81025; 83690; 85025; 96361; 96374; 96375; 99284; J2405; J7030

== ENCOUNTER 2022-09-25 21:01 | Emergency (ER) | payer SELFPAY ==
[2022-09-25 21:49] LABS: Absolute Lymphocytes (CBC) 2.8 K/uL (0.7-4.9); Hematocrit 40.6 % (36.0-45.0); Lymphocytes % 31.5 % (15.3-44.8); MCV 81.9 fL (80-100); MPV 8.1 fL (7.6-11.3); RBC Red Blood Cell Count 4.96 M/uL (3.86-4.86)
[2022-09-25 21:58] LABS: Protime INR 1.01
--- NOTE | 2022-09-25 22:01 | RAD REPORT ---
EXAM DESCRIPTION: RAD - Chest Single View - 09/25/2022 9:47 pm CLINICAL HISTORY: CHEST PAIN Chest pain. COMPARISON: Chest Single View dated 08/17/2022; Chest Single View dated 11/24/2021hest Single View da kaushik 08/28/2022; Chest Single View dated 03/24/2022; Chest Single View dated 01/19/2022; Chest Single Vie w dated 01/11/2022 FINDINGS: Portable technique limits examination quality. The lungs are grossly clear. The heart is normal in size. No displaced fractures. IMPRESSION: No acute intrathoracic process suspected.
[2022-09-25 22:17] LABS: BUN Blood Urea Nitrogen 10 mg/dL (7-18); Bicarbonate 24 mEq/L (21-32); Glomerular Filtration Rate 98 ml/min (=/>90); Glucose Level 136 mg/dL (74-106); Potassium 3.3 mEq/L (3.5-5.1); Sodium Level 140 mEq/L (136-145)
[2022-09-25 22:18] LABS: ALT/SGPT 18 U/L (13-56); AST/SGOT 8 U/L (15-37); Albumin 3.1 g/dL (3.4-5.0); Alkaline Phosphatase 84 U/L (45-117); Bilirubin Direct < 0.1 mg/dL (0-0.2); Bilirubin Total 0.1 mg/dL (0.2-1.0); Protein, Total 6.8 g/dL (6.4-8.2)
[2022-09-25 22:19] LABS: NT PRO-BNP 57 pg/mL (<125); Troponin High Sensitivity < 3.0 (<58.9)
[2022-09-25] MEDS ORDERED: ONDANSETRON 4 MG/2 ML VIAL ONE (22:21)
[2022-09-25] MEDS ORDERED: MORPHINE 2 MG/ML SYR ONE (22:21)
--- NOTE | 2022-09-26 00:15 | EDPHYS ---
Physician Documentation [facility] Name: Charity Hanks Age: 42 yrs Sex: Female : 1980 Arrival Date: 09/25/2022 Time: 21:02 Bed 8 Private MD: ED Physician Johny Chahal HPI: 09/25 22:07 This 42 yrs old Female presents to ER via EMS with complaints of Chest Pain. sp3 22:07 42-year-old female with history of anxiety, major depression, hyperlipidemia, allergic sp3 myocardial infarction (patient is on no cardiac medications and there is no record that I can find of [place]) presents with chief complaint chest pain for the last 24 hours without any other secondary symptoms. Pain is described as pressure and constant and waxing and waning in nature. She denies headache, neck pain, left arm pain, shortness of breath, back pain, abdominal pain, nausea, vomiting, diarrhea, syncope, near syncope, fever, fall, trauma, known sick contacts, travel history, or any other symptoms on ROS at this time. Patient has had multiple visits here for similar symptoms in the past.. Historical: - Allergies: 21:06 No Known Allergies; bb - Home Meds: 21:06 Desyrel Oral [Active]; Lexapro Oral [Active]; Melatonin Oral [Active]; Topamax Oral bb [Active]; Vistaril Oral [Active]; Wellbutrin Oral [Active]; Zyprexa Oral [Active]; - PMHx: 21:06 Anxiety; depressive disorder; Hypercholesterolemia; Myocardial infarction; PTSD; bb - PSHx: 21:06 Cholecystectomy; Tonsillectomy; bb - Immunization history:: vaccinated for Covid. - Social history:: Smoking status: Patient reports the use of cigarette tobacco products. ROS: 22:09 Constitutional: Negative for fever, chills, and weight loss, Eyes: Negative for injury, sp3 pain, redness, and discharge, ENT: Negative for injury, pain, and discharge, Neck: Negative for injury, pain, and swelling, Respiratory: Negative for shortness of breath, cough, wheezing, and pleuritic chest pain, Abdomen/GI: Negative for abdominal pain, nausea, vomiting, diarrhea, and constipation, Back: Negative for injury and pain, MS/Extremity: Negative for injury and deformity, Skin: Negative for injury, rash, and discoloration, Neuro: Negative for headache, weakness, numbness, tingling, and seizure, Psych: Negative for depression, anxiety, suicide ideation, homicidal ideation, and hallucinations, Allergy/Immunology: Negative for hives, rash, and allergies, Endocrine: Negative for neck swelling, polydipsia, polyuria, polyphagia, and marked weight changes, Hematologic/Lymphatic: Negative for swollen nodes, abnormal bleeding, and unusual bruising. 22:09 All other systems are negative. Exam: 22:09 Constitutional: This is a well developed, well nourished patient who is awake, alert, sp3 and in no acute distress. Head/Face: Normocephalic, atraumatic. Eyes: Pupils equal round and reactive to light, extra-ocular motions intact. Lids and lashes normal. Conjunctiva and sclera are non-icteric and not injected. Cornea within normal limits. Periorbital areas with no swelling, redness, or edema. ENT: Nares patent. No nasal discharge, no septal abnormalities noted. External auditory canals are clear. Oropharynx with no redness, swelling, or masses, exudates, or evidence of obstruction, uvula midline. Mucous membranes moist. Neck: Trachea midline, no thyromegaly or masses palpated, and no cervical lymphadenopathy. Supple, full range of motion without nuchal rigidity, or vertebral point tenderness. No Meningismus. Chest/axilla: Normal chest wall appearance and motion. Nontender with no deformity. No lesions are appreciated. Cardiovascular: Regular rate and rhythm with a normal S1 and S2. No gallops, murmurs, or rubs. Normal PMI, no JVD. No pulse deficits. Respiratory: Lungs have equal breath sounds bilaterally, clear to auscultation and percussion. No rales, rhonchi or wheezes noted. No increased work of breathing, no retractions or nasal flaring. Abdomen/GI: Soft, non-tender, with normal bowel sounds. No distension or tympany. No guarding or rebound. No evidence of tenderness throughout. Back: No spinal tenderness. No costovertebral tenderness. Full range of motion. Skin: Warm, dry with normal turgor. Normal color with no rashes, no lesions, and no evidence of cellulitis. MS/ Extremity: Pulses equal, no cyanosis. Neurovascular intact. Full, normal range of motion. Neuro: Awake and alert, GCS 15, oriented to person, place, time, and situation. Cranial nerves II-XII grossly intact. Motor strength 5/5 in all extremities. Sensory grossly intact. Cerebellar exam normal. Normal gait. Psych: Awake, alert, with orientation to person, place and time. Behavior, mood, and affect are within normal limits. 22:09 ECG was reviewed by the Attending Physician. EKG demonstrates normal sinus rhythm at 85 bpm with normal intervals, normal QRS, normal axis, normal ST/T-segment without evidence of acute ischemia Vital Signs: 21:05 BP 151 / 91; Pulse 111; Resp 18 S; Temp 98.5(TE); Pulse Ox 98% ; EtCO2 35 mmHg; Weight bb 99.79 kg (R); Height 5 ft. 2 in. (R); Pain 9/10; 21:17 BP 121 / 78; Pulse 89; Resp 18 S; Temp 97.9(O); Pulse Ox 97% on R/A; lg3 22:19 BP 113 / 71; Pulse 84; Resp 18 S; Pulse Ox 98% on R/A; lg3 23:26 BP 109 / 62; Pulse 76; Resp 17 S; Pulse Ox 96% on R/A; lg3 21:05 Body Mass Index 40.24 (99.79 kg, 157.48 cm) bb 21:05 Pain Scale: Adult bb MDM: 21:06 Patient medically screened. sp3 22:10 HEART Score: History: Slightly Suspicious (0), Age: < or = 45 years (0), Risk Factors: sp3 1 or 2 risk factors (1), Troponin: < or = 1 x Normal Limit (0), Total Score = 1. Data reviewed: vital signs, nurses notes, lab test result(s), EKG, radiologic studies. ED course: 42-year-old female with chief complaint chest pain with heart score of 1. I am not highly suspicious for acute coronary syndrome, pulmonary embolism, thoracic aortic dissection, pulmonary pathology, upper GI pathology, aortic pathology retropharyngeal pathology or any other critical concerning findings at this time. Patient is not septic and is in no acute distress. Will repeat troponin x1 to 2 hours with a heart score of 1 we will be able to safely discharge patient home with cardiology follow-up if and when needed.. 09/26 00:14 ED course: Repeat troponin is negative. Patient is sleeping and in no acute distress. sp3 We will discharge patient safely home at this time.. 09/25 21:05 Order name: Basic Metabolic Panel; Complete Time: 23:20 sp3 09/25 21:05 Order name: CBC with Diff; Complete Time: 22:03 sp3 09/25 21:05 Order name: LFT's; Complete Time: 23:20 sp3 09/25 21:05 Order name: Magnesium; Complete Time: 23:20 sp3 09/25 21:05 Order name: NT PRO-BNP; Complete Time: 23:20 sp3 09/25 21:05 Order name: PT-INR; Complete Time: 22:03 sp3 09/25 21:05 Order name: Troponin HS; Complete Time: 23:20 sp3 09/25 22:07 Order name: Troponin High Sensitivity: Please draw 2 hours from first.; Complete Time: sp3 00:13 09/25 21:05 Order name: XRAY Chest (1 view); Complete Time: 22:03 sp3 09/25 21:05 Order name: EKG; Complete Time: 21:06 sp3 09/25 21:05 Order name: Cardiac monitoring; Complete Time: 21:34 sp3 09/25 21:05 Order name: EKG - Nurse/Tech; Complete Time: 21:34 sp3 09/25 21:05 Order name: IV Saline Lock; Complete Time: 21:34 sp3 09/25 21:05 Order name: Labs collected and sent; Complete Time: 21:34 sp3 09/25 21:05 Order name: O2 Per Protocol; Complete Time: 21:34 sp3 09/25 21:05 Order name: O2 Sat Monitoring; Complete Time: 21:34 sp3 Administered Medications: 09/25 22:19 Drug: morphine IVP or IV 2 mg Route: IVP; Infused Over: 4 mins; Site: left wrist; lg3 09/26 00:22 Follow up: Response: No adverse reaction; Marked relief of symptoms lg3 09/25 22:19 Drug: Ondansetron IVP 4 mg Route: IVP; Site: left wrist; lg3 09/26 00:22 Follow up: Response: No adverse reaction; Marked relief of symptoms lg3 Disposition Summary: 09/26/22 00:14 Discharge Ordered Location: Home sp3 Condition: Stable sp3 Diagnosis - Chest pain, unspecified sp3 Discharge Instructions: - Discharge Summary Sheet sp3 - Nonspecific Chest Pain, Adult sp3 Forms: - Medication Reconciliation Form sp3 - Thank You Letter sp3 - Antibiotic Education sp3 - Prescription Opioid Use sp3 Signatures: Dispatcher [employer] Linnette Feliciano RN RN bb Toyin Uriostegui RN RN lg3 Johny Chahal MD MD sp3
--- NOTE | 2022-09-26 00:15 | ER ---
Nurse's Notes [facility] Name: Charity Hanks Age: 42 yrs Sex: Female : 1980 Arrival Date: 09/25/2022 Time: 21:02 Bed 8 Private MD: Diagnosis: Chest pain, unspecified Presentation: 09/25 21:05 Chief complaint: EMS states: they were toned out for report of pt with chest pain that bb started around 1800 at rest. Coronavirus screen: At this time, the client does not indicate any symptoms associated with coronavirus-19. Ebola Screen: No symptoms or risks identified at this time. Initial Sepsis Screen: Does the patient meet any 2 criteria? No. Patient's initial sepsis screen is negative. Does the patient have a suspected source of infection? No. Patient's initial sepsis screen is negative. Risk Assessment: Do you want to hurt yourself or someone else? Patient reports no desire to harm self or others. Onset of symptoms was September 25, 2022. 21:05 Method Of Arrival: [facility] bb 21:05 Acuity: CARLOS 3 bb 21:06 Care prior to arrival: Medication(s) given: ASA, 81 mg, x 4. bb 21:10 Care prior to arrival: Glucose check: 165. bb Historical: - Allergies: 21:06 No Known Allergies; bb - Home Meds: 21:06 Desyrel Oral [Active]; Lexapro Oral [Active]; Melatonin Oral [Active]; Topamax Oral bb [Active]; Vistaril Oral [Active]; Wellbutrin Oral [Active]; Zyprexa Oral [Active]; - PMHx: 21:06 Anxiety; depressive disorder; Hypercholesterolemia; Myocardial infarction; PTSD; bb - PSHx: 21:06 Cholecystectomy; Tonsillectomy; bb - Immunization history:: vaccinated for Covid. - Social history:: Smoking status: Patient reports the use of cigarette tobacco products. Screenin:18 [facility] ED Fall Risk Assessment (Adult) History of falling in the last 3 months, lg3 including since admission No falls in past 3 months (0 pts). Abuse screen: Denies threats or abuse. Denies injuries from another. Nutritional screening: No deficits noted. Tuberculosis screening: No symptoms or risk factors identified. Assessment: 21:18 General: Appears in no apparent distress. comfortable, Behavior is calm, cooperative. lg3 Pain: Complains of pain in mid-sternal area Pain does not radiate. Pain began 3 hours ago. Neuro: No deficits noted. Lang Agitation-Sedation Scale (RASS): 0 - Alert and Calm Level of Consciousness is awake, alert, obeys commands, Oriented to person, place, time, situation. Cardiovascular: No deficits noted. Reports chest pain, Capillary refill < 3 seconds Clubbing of nail beds is absent JVD is absent Patient's skin is warm and dry. Respiratory: No deficits noted. Airway is patent Trachea midline Respiratory effort is even, unlabored, Respiratory pattern is regular, symmetrical. GI: No deficits noted. No signs and/or symptoms were reported involving the gastrointestinal system. Abdomen is round non-distended, obese, Bowel sounds present X 4 quads. Abd is soft and non tender X 4 quads. : No deficits noted. No signs and/or symptoms were reported regarding the genitourinary system. EENT: No deficits noted. No signs and/or symptoms were reported regarding the EENT system. Derm: No deficits noted. No signs and/or symptoms reported regarding the dermatologic system. Skin is intact, is healthy with good turgor, Skin is dry, Skin is normal, Skin temperature is warm. Musculoskeletal: No deficits noted. No signs and/or symptoms reported regarding the musculoskeletal system. Circulation, motion, and sensation intact. Range of motion: intact in all extremities. 22:19 Reassessment: Patient appears in no apparent distress at this time. No changes from lg3 previously documented assessment. Patient and/or family updated on plan of care and expected duration. Pain level reassessed. Patient is alert, oriented x 3, equal unlabored respirations, skin warm/dry/pink. 23:26 Reassessment: Patient appears in no apparent distress at this time. No changes from lg3 previously documented assessment. Patient and/or family updated on plan of care and expected duration. Pain level reassessed. Patient is alert, oriented x 3, equal unlabored respirations, skin warm/dry/pink. Vital Signs: 21:05 BP 151 / 91; Pulse 111; Resp 18 S; Temp 98.5(TE); Pulse Ox 98% ; EtCO2 35 mmHg; Weight bb 99.79 kg (R); Height 5 ft. 2 in. (R); Pain 9/10; 21:17 BP 121 / 78; Pulse 89; Resp 18 S; Temp 97.9(O); Pulse Ox 97% on R/A; lg3 22:19 BP 113 / 71; Pulse 84; Resp 18 S; Pulse Ox 98% on R/A; lg3 23:26 BP 109 / 62; Pulse 76; Resp 17 S; Pulse Ox 96% on R/A; lg3 21:05 Body Mass Index 40.24 (99.79 kg, 157.48 cm) bb 21:05 Pain Scale: Adult bb ED Course: 21:02 Patient arrived in ED. ja2 21:03 Johny Chahal MD is Attending Physician. sp3 21:06 Toyin Uriostegui, JAMES is Primary Nurse. lg3 21:06 Triage completed. bb 21:09 Arm band placed on Patient placed in an exam room, on a stretcher, on teletypesetter monitor, bb on pulse oximetry. EKG completed in triage. Results shown to MD. 21:18 Patient has correct armband on for positive identification. Placed in gown. Bed in low lg3 position. Call light in reach. Side rails up X 1. Client placed on continuous cardiac and pulse oximetry monitoring. NIBP monitoring applied. cafeteria monitor on. Door closed. Noise minimized. Warm blanket given. 21:18 Patient maintains SpO2 saturation greater than 95% on room air. lg3 21:34 CBC with Diff Sent. lg3 21:34 LFT's Sent. lg3 21:34 Magnesium Sent. lg3 21:34 NT PRO-BNP Sent. lg3 21:35 PT-INR Sent. lg3 21:35 Troponin HS Sent. lg3 21:41 Inserted saline lock: 20 gauge in left wrist, using aseptic technique. Blood collected. rv1 21:49 XRAY Chest (1 view) In Process Unspecified. EDMS 09/26 00:22 No provider procedures requiring assistance completed. IV discontinued, intact, lg3 bleeding controlled, No redness/swelling at site. Pressure dressing applied. Administered Medications: 09/25 22:19 Drug: morphine IVP or IV 2 mg Route: IVP; Infused Over: 4 mins; Site: left wrist; lg3 09/26 00:22 Follow up: Response: No adverse reaction; Marked relief of symptoms lg3 09/25 22:19 Drug: Ondansetron IVP 4 mg Route: IVP; Site: left wrist; lg3 09/26 00:22 Follow up: Response: No adverse reaction; Marked relief of symptoms lg3 Medication: 00:22 VIS not applicable for this client. lg3 Outcome: 00:14 Discharge ordered by . sp3 00:22 Discharged to home ambulatory. lg3 00:22 Condition: stable 00:22 Discharge instructions given to patient, Instructed on discharge instructions, follow up and referral plans. Demonstrated understanding of instructions, follow-up care. 00:22 Patient left the ED. lg3 Signatures: Dispatcher [employer] EDMS Linnette Mathias RN RN bb Toyin Uriostegui RN RN lg3 Johny Chahal MD MD sp3 Christine Reed Rebecca 1
[2022-09-26 01:00] VITALS: TEMP 97.9
[2022-09-26 01:14] VITALS: BP 109/62; O2SAT 96
--- NOTE | 2022-09-26 17:22 | EKG ---
Test Date: 2022-09-25 Test Time: 21:11:58 Meteorological Equipment Repairer: RV MEASUREMENT RESULTS: Intervals: Rate: 85 [place]: 142 QRSD: 78 QT: 382 QTc: 454 [place]: P: 34 [place]: 142 QRS: -31 T: 25 INTERPRETIVE STATEMENTS: Normal sinus rhythm Biatrial enlargement Left axis deviation Pulmonary disease pattern Abnormal ECG Compared to ECG 08/28/2022 15:21:50 Atrial abnormality now present Myocardial infarct finding no longer present Electronically Signed On 09-26-22 17:20:30 CDT by Neil Arthur
== END 2022-09-26 00:22 | disposition home or self-care (01) ==
LOC: ER 21:01
DX: R07.9 Chest pain, unspecified (principal)
CPT/HCPCS: 36415; 71045; 80048; 80076; 83735; 83880; 84484; 85025; 85610; 93005; J2270; J2405

== ENCOUNTER 2023-02-18 19:10 | Emergency (ER) | payer SELFPAY ==
[2023-02-18 19:56] LABS: Absolute Lymphocytes (CBC) 2.2 K/uL (0.7-4.9); Hematocrit 38.7 % (36.0-45.0); Lymphocytes % 24.1 % (15.3-44.8); MCV 82.6 fL (80-100); MPV 7.8 fL (7.6-11.3); Platelets 272 thou/uL (152-406); RBC Red Blood Cell Count 4.68 M/uL (3.86-4.86)
[2023-02-18] MEDS ORDERED: KETOROLAC 30 MG/ML INJ ONE (20:01)
[2023-02-18] MEDS ORDERED: ONDANSETRON 4 MG (ODT) TAB ONE (20:02)
[2023-02-18 20:15] LABS: ALT/SGPT 56 U/L (13-56); AST/SGOT 18 U/L (15-37); Albumin 2.7 g/dL (3.4-5.0); Alkaline Phosphatase 117 U/L (45-117); Bicarbonate 24 mEq/L (21-32); Bilirubin Total 0.2 mg/dL (0.2-1.0); Glomerular Filtration Rate 111 ml/min (=/>90); Glucose Level 148 mg/dL (74-106); NT PRO-BNP 807 pg/mL (<125); Potassium 3.1 mEq/L (3.5-5.1); Protein, Total 6.2 g/dL (6.4-8.2); Sodium Level 138 mEq/L (136-145); Troponin High Sensitivity 3.3 pg/mL (<58.9)
--- NOTE | 2023-02-18 20:23 | RAD REPORT ---
EXAM DESCRIPTION: RAD - Chest Single View - 02/18/2023 8:17 pm CLINICAL HISTORY: CHEST PAIN Chest pain. COMPARISON: <Comparisons> FINDINGS: Portable technique limits examination quality. The lungs are grossly clear. The heart is normal in size. No displaced fractures. IMPRESSION: No acute intrathoracic process suspected.
[2023-02-18 20:29] LABS: BUN Blood Urea Nitrogen < 3 mg/dL (7-18); Bilirubin Direct < 0.1 mg/dL (0-0.2); Bilirubin Indirect, Calculated ND mg/dL (0.2-0.8)
[2023-02-18] MEDS ORDERED: ACETAMINOPHEN 500 MG TAB ONE (21:51)
[2023-02-18] MEDS ORDERED: HYDROCODONE/APAP 7.5/325 MG TAB ONE (22:52)
[2023-02-18 23:20] LABS: Lipase 29 U/L (13-75)
[2023-02-18 23:26] LABS: Troponin High Sensitivity < 3.0 pg/mL (<58.9)
--- NOTE | 2023-02-18 23:32 | EDPHYS ---
Physician Documentation [facility] Name: Charity Hanks Age: 42 yrs Sex: Female : 1980 Arrival Date: 02/18/2023 Time: 19:10 Bed 3 Private MD: ED Physician Mayank Butler HPI: 02/19 00:17 This 42 yrs old Female presents to ER via Ambulatory with complaints of Chest Pain. kb 00:17 The patient or guardian reports chest pain that is located primarily in the substernal kb area, anterior chest wall, left. Onset: at 15:00. The pain does not radiate. Associated signs and symptoms: The patient has no apparent associated signs or symptoms. The chest pain is described as sharp. Duration: The patient or guardian reports a single episode. Modifying factors: The symptoms are alleviated by nothing. the symptoms are aggravated by nothing. Severity of pain: At its worst the pain was moderate in the emergency department the pain is unchanged. The patient has experienced similar episodes in the past, multiple times, pt has been seen in this ED for similar symptoms multiple times in the past. The patient has not recently seen a physician. 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 - Social history:: Smoking status: Patient reports the use of cigarette tobacco products, 1/4 PPD. ROS: 02/19 00:17 Constitutional: Negative for fever, chills, and weight loss. kb Cardiovascular: Positive for chest pain, Negative for edema, orthopnea, palpitations, paroxysmal nocturnal dyspnea. All other systems are negative. Exam: 02/18 19:43 Constitutional: This is a well developed, well nourished patient who is awake, alert, kb and in no acute distress. Head/Face: Normocephalic, atraumatic. ENT: Moist Mucous membranes Cardiovascular: Regular rate and rhythm with a normal S1 and S2. No gallops, murmurs, or rubs. No pulse deficits. Respiratory: Respirations even and unlabored. No increased work of breathing. Talking in full sentences Abdomen/GI: Soft, non-tender. No distention Back: No spinal tenderness. No costovertebral tenderness. Full range of motion. Skin: Warm, dry with normal turgor. Normal color. MS/ Extremity: Pulses equal, no cyanosis. Neurovascular intact. Full, normal range of motion. Neuro: Awake and alert, GCS 15, oriented to person, place, time, and situation. Moves all extremities. Normal gait. ECG was reviewed by the Attending Physician. Vital Signs: 19:26 BP 118 / 85; Pulse 79; Resp 16; Temp 98.2; Pulse Ox 99% ; Weight 81.5 kg; Height 5 ft. mb9 2 in. ; Pain 9/10; 19:31 BP 118 / 85; Pulse 80; Resp 20; Pulse Ox 95% ; kl 21:32 BP 128 / 94; Pulse 78; Resp 25; Pulse Ox 99% on R/A; jb4 22:15 BP 110 / 77; Pulse 73; Resp 16; Pulse Ox 100% on R/A; jb4 19:26 Body Mass Index 32.86 (81.50 kg, 157.48 cm) mb9 19:26 Pain Scale: Adult mb9 MDM: 19:24 Patient medically screened. kb 02/19 00:17 Data reviewed: vital signs, nurses notes. kb 00:18 Differential diagnosis: abnormal EKG, acute myocardial infarction, coronary artery kb disease pancreatitis, pneumonia, pulmonary embolus. Consideration of Admission/Observation Escalation of care including admission/observation considered. admission considered for chest pain. Initial and repeat troponins wnl. HEART score 1. Care significantly affected by the following chronic conditions: high cholesterol. Counseling: I had a detailed discussion with the patient and/or guardian regarding: the historical points, exam findings, and any diagnostic results supporting the discharge/admit diagnosis, lab results, radiology results, the need for outpatient follow up, a attorney at law, a family practitioner, to return to the emergency department if symptoms worsen or persist or if there are any questions or concerns that arise at home. 02/18 19:28 Order name: Basic Metabolic Panel; Complete Time: 20:52 kb 02/18 19:28 Order name: CBC with Diff; Complete Time: 20:13 kb 02/18 19:28 Order name: LFT's; Complete Time: 20:52 kb 02/18 19:28 Order name: Magnesium; Complete Time: 20:52 kb 02/18 19:28 Order name: NT PRO-BNP; Complete Time: 20:52 kb 02/18 19:28 Order name: Troponin HS; Complete Time: 20:52 kb 02/18 22:10 Order name: Troponin HS; Complete Time: 23:27 kb 02/18 22:10 Order name: Lipase; Complete Time: 23:27 kb 02/18 19:28 Order name: XRAY Chest (1 view); Complete Time: 20:52 kb 02/18 19:28 Order name: EKG; Complete Time: 19:30 kb 02/18 19:28 Order name: Cardiac monitoring; Complete Time: 21:41 kb 02/18 19:28 Order name: EKG - Nurse/Tech; Complete Time: 21:41 kb 02/18 19:28 Order name: IV Saline Lock; Complete Time: 21:41 kb 02/18 19:28 Order name: Labs collected and sent; Complete Time: 21:41 kb 02/18 19:28 Order name: O2 Per Protocol; Complete Time: 21:41 kb 02/18 19:28 Order name: O2 Sat Monitoring; Complete Time: 21:41 kb EC/14 19:43 Rate is 84 beats/min. Rhythm is regular. QRS [place] is Normal. [place] interval is normal at kb 156 msec. QRS interval is normal at 82 msec. QT interval is normal at 437 msec. Administered Medications: 19:54 Drug: Ketorolac IVP 15 mg Route: IVP; Site: left forearm; kl 19:54 Drug: Ondansetron PO 4 mg Route: PO; kl 21:49 Not Given (Patient Refused): Acetaminophen PO 1000 mg PO once jb4 22:45 Drug: Hydrocodone-Acetaminophen PO (7.5 mg-325 mg) 1 tabs Route: PO; jb4 23:33 Drug: Potassium Chloride PO 40 mEq Route: PO; jb4 Disposition Summary: 02/18/23 23:32 Discharge Ordered Location: Home kb Condition: Stable kb Diagnosis - Chest pain, unspecified kb Followup: kb - With: Emergency Department - When: As needed - Reason: Worsening of condition Followup: kb - With: Private Physician - When: 2 - 3 days - Reason: Recheck today's complaints, Continuance of care, Re-evaluation by your physician Discharge Instructions: - Discharge Summary Sheet kb - Nonspecific Chest Pain, Adult, [id number] kb Forms: - Medication Reconciliation Form kb - Thank You Letter kb - Antibiotic Education kb - Prescription Opioid Use kb - Patient Portal Instructions kb - Leadership Thank You Letter kb Signatures: Dispatcher [employer] Radha Hill, JULIOC KAY-Stacie Su RN RN Herminio Al RN RN jb4 Alie Banks RN RN mb9
--- NOTE | 2023-02-18 23:32 | ER ---
Nurse's Notes [facility] Name: Charity Hanks Age: 42 yrs Sex: Female : 1980 Arrival Date: 02/18/2023 Time: 19:10 Bed 3 Private MD: Diagnosis: Chest pain, unspecified Presentation: 02/18 19:26 Chief complaint: Patient states: I was just released from the hospital with mb9 Pancreatitis it has still been bothering me but today around 3 pm I woke up with chest pain, I'm short of breath, and nauseous. Coronavirus screen: Vaccine status: Patient reports receiving the 2nd dose of the covid vaccine. Moderna At this time, the client does not indicate any symptoms associated with coronavirus-19. Ebola Screen: Patient negative for fever greater than or equal to 101.5 degrees Fahrenheit, and additional compatible Ebola Virus Disease symptoms Patient denies exposure to infectious person. Patient denies travel to an Ebola-affected area in the 21 days before illness onset. No symptoms or risks identified at this time. Initial Sepsis Screen: Does the patient meet any 2 criteria? Yes Does the patient have a suspected source of infection? No. Patient's initial sepsis screen is negative. Risk Assessment: Do you want to hurt yourself or someone else? Patient reports no desire to harm self or others. Onset of symptoms was February 18, 2023 at 15:00. 19:26 Method Of Arrival: Ambulatory 9 19:26 Acuity: CARLOS 3 mb9 Triage Assessment: 19:26 General: Appears in no apparent distress. uncomfortable, Behavior is cooperative. Pain: mb9 Complains of pain in mid-sternal area, right upper quadrant and left upper quadrant Pain radiates to left arm Pain currently is 9 out of 10 on a pain scale. Quality of pain is described as radiating, sharp, Pain began suddenly, 3 pm Noted to be grimacing, guarding. EENT: No deficits noted. No signs and/or symptoms were reported regarding the EENT system. Neuro: Level of Consciousness is awake, alert, obeys commands, Oriented to person, place, time, situation, Appropriate for age. Cardiovascular: Reports chest pain, Chest pain is described as severe, radiates to left arm(s). Respiratory: Airway is patent Respiratory effort is even, unlabored, Respiratory pattern is regular, symmetrical. Respiratory: Reports shortness of breath. GI: No deficits noted. No signs and/or symptoms were reported involving the gastrointestinal system. : No deficits noted. No signs and/or symptoms were reported regarding the genitourinary system. Derm: No deficits noted. No signs and/or symptoms reported regarding the dermatologic system. Musculoskeletal: No deficits noted. No signs and/or symptoms reported regarding the musculoskeletal system. 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 - Social history:: Smoking status: Patient reports the use of cigarette tobacco products, 1/4 PPD. Screenin:26 Abuse screen: Denies threats or abuse. Nutritional screening: No deficits noted. mb9 Tuberculosis screening: No symptoms or risk factors identified. Assessment: 19:30 General: Appears distressed, uncomfortable, Behavior is cooperative, anxious. Pain: kl Complains of pain in left breast Pain radiates to left arm Pain currently is 9 out of 10 on a pain scale. Pain began 1 hour ago. Neuro: No deficits noted. Cardiovascular: Reports chest pain, nausea, Rhythm is sinus rhythm. Respiratory: No deficits noted. GI: Reports nausea. : No deficits noted. No signs and/or symptoms were reported regarding the genitourinary system. 20:30 Reassessment: Patient appears in no apparent distress at this time. Patient and/or jb4 family updated on plan of care and expected duration. Pain level reassessed. Patient is alert, oriented x 3, equal unlabored respirations, skin warm/dry/pink. 21:32 Reassessment: Patient appears in no apparent distress at this time. Patient and/or jb4 family updated on plan of care and expected duration. Pain level reassessed. Patient is alert, oriented x 3, equal unlabored respirations, skin warm/dry/pink. 22:30 Reassessment: Patient appears in no apparent distress at this time. Patient and/or jb4 family updated on plan of care and expected duration. Pain level reassessed. Patient is alert, oriented x 3, equal unlabored respirations, skin warm/dry/pink. 23:46 Reassessment: Patient appears in no apparent distress at this time. Patient and/or jb4 family updated on plan of care and expected duration. Pain level reassessed. Patient is alert, oriented x 3, equal unlabored respirations, skin warm/dry/pink. Vital Signs: 19:26 BP 118 / 85; Pulse 79; Resp 16; Temp 98.2; Pulse Ox 99% ; Weight 81.5 kg; Height 5 ft. mb9 2 in. ; Pain 9/10; 19:31 BP 118 / 85; Pulse 80; Resp 20; Pulse Ox 95% ; kl 21:32 BP 128 / 94; Pulse 78; Resp 25; Pulse Ox 99% on R/A; jb4 22:15 BP 110 / 77; Pulse 73; Resp 16; Pulse Ox 100% on R/A; jb4 19:26 Body Mass Index 32.86 (81.50 kg, 157.48 cm) mb9 19:26 Pain Scale: Adult mb9 ED Course: 19:13 Patient arrived in ED. mr 19:14 Arm band placed on right wrist. Patient placed in an exam room. mb9 19:20 Inserted saline lock: 20 gauge in right forearm, using aseptic technique. kl 19:23 Radha Titus FNP-C is [facility] [place]. kb 19:24 Mayank Butler MD is Attending Physician. kb 19:26 Patient has correct armband on for positive identification. Bed in low position. Call mb9 light in reach. Client placed on continuous cardiac and pulse oximetry monitoring. NIBP monitoring applied. 19:33 EKG completed in triage. Results shown to MD. kl 19:43 Triage completed. mb9 20:19 XRAY Chest (1 view) In Process Unspecified. EDMS 23:46 No provider procedures requiring assistance completed. IV discontinued, intact, jb4 bleeding controlled, No redness/swelling at site. Pressure dressing applied. Patient maintains SpO2 saturation greater than 95% on room air. Administered Medications: 19:54 Drug: Ketorolac IVP 15 mg Route: IVP; Site: left forearm; kl 19:54 Drug: Ondansetron PO 4 mg Route: PO; kl 21:49 Not Given (Patient Refused): Acetaminophen PO 1000 mg PO once jb4 22:45 Drug: Hydrocodone-Acetaminophen PO (7.5 mg-325 mg) 1 tabs Route: PO; jb4 23:33 Drug: Potassium Chloride PO 40 mEq Route: PO; jb4 Outcome: 23:32 Discharge ordered by MD. calvillo 23:46 Discharged to home ambulatory. jb4 23:46 Condition: stable 23:46 Discharge instructions given to patient, Instructed on discharge instructions, follow up and referral plans. Demonstrated understanding of instructions, follow-up care. 23:47 Patient left the ED. jb4 Signatures: Dispatcher [employer] EDRadha Guzman, RIVET SORTER-C RIVET SORTER-Stacie Su, RN RN Alie Jackson James, RN RN jb4 Alie Banks RN RN mb9
[2023-02-18] MEDS ORDERED: POTASSIUM CL SA 10 MEQ TAB PO ONE (23:41)
[2023-02-19 00:22] VITALS: TEMP 98.2
[2023-02-19 00:27] VITALS: BP 110/77; O2SAT 100
--- NOTE | 2023-02-19 17:02 | EKG ---
Test Date: 2023-02-18 Test Time: 19:21:20 Nursing Assoc: [facility] MEASUREMENT RESULTS: Intervals: Rate: 84 VA: 156 QRSD: 82 QT: 370 QTc: 437 [place]: P: 26 VA: 156 QRS: -34 T: 21 INTERPRETIVE STATEMENTS: Normal sinus rhythm Left axis deviation Anterior infarct, age undetermined Abnormal ECG Compared to ECG 09/25/2022 21:11:58 Myocardial infarct finding now present Atrial abnormality no longer present Electronically Signed On 02-19-23 17:01:23 CDT by Neil Arthur
== END 2023-02-18 23:47 | disposition home or self-care (01) ==
LOC: ER 19:10
DX: R07.9 Chest pain, unspecified (principal); K85.90 Acute pancreatitis without necrosis or infection, unspecified; R06.02 Shortness of breath; R11.0 Nausea
CPT/HCPCS: 36415; 71045; 80048; 80076; 83690; 83735; 83880; 84484; 85025; 93005; Q0162

== ENCOUNTER 2023-03-07 18:39 | Emergency (ER) | payer SELFPAY ==
[2023-03-07 19:56] LABS: Hematocrit 40.7 % (36.0-45.0); Lymphocytes % 21.7 % (15.3-44.8); MPV 7.2 fL (7.6-11.3); Platelets 389 thou/uL (152-406); RBC Red Blood Cell Count 4.97 M/uL (3.86-4.86)
[2023-03-07 20:05] LABS: Specific Gravity < 1.005 (1.005-1.030)
[2023-03-07 20:10] LABS: Specific Gravity < 1.005 (1.005-1.030); Urine Bacteria <20 /HPF (<20); Urine Bilirubin NEGATIVE (Negative); Urine Blood Negative (Negative); Urine Clarity Turbid (Clear); Urine Color Colorless (Yellow); Urine Glucose NEGATIVE (Negative); Urine Protein NEGATIVE (Negative); Urine RBC <5 /HPF (None Seen); Urine Urobilinogen Normal (Normal)
[2023-03-07 20:11] LABS: Albumin 3.2 g/dL (3.4-5.0); Bilirubin Total 0.1 mg/dL (0.2-1.0); Protein, Total 6.9 g/dL (6.4-8.2)
[2023-03-07] MEDS ORDERED: NA CHLORIDE 0.9% 1,000 ML ONE (20:17)
[2023-03-07] MEDS ORDERED: ONDANSETRON 4 MG/2 ML VIAL ONE ×2 (20:17→21:00)
--- NOTE | 2023-03-07 20:28 | RAD REPORT ---
EXAM DESCRIPTION: CT - Abdomen Pelvis W Contrast - 03/07/2023 7:57 pm CLINICAL HISTORY: LLQ;Abd pain COMPARISON: Abdomen Pelvis W Contrast dated 06/10/2022; Abdomen Pelvis W Contrast dated 04/01/2022 ; Abdomen Pelvis W Contrast dated 01/11/2022; Abdomen Pelvis W Contrast dated 10/11/2020 TECHNIQUE: Thin cut axial CT imaging of the abdomen and pelvis was performed following intravenous a dministration of 100 mL Isovue 300. Multiplanar reformats were generated and reviewed. All CT scans are performed using dose optimization technique as appropriate and may include automated exposure control or mA/KV adjustment according to patient size. FINDINGS: No suspicious findings in the lung bases. The liver, spleen, and pancreas show no suspicious findings. Rounded left adrenal marginally enhancin g 2.7 cm mass is stable. Gallbladder was surgically removed. No evidence of intra or extrahepatic abby iary ductal dilation. Symmetric renal function is seen with no hydronephrosis or suspicious renal mass. No dilated bowel loops or bowel wall thickening. No free air, free fluid or inflammatory stranding. N o hernia, mass or bulky lymphadenopathy. Few small cystic lesions of both ovaries, largest not exceed ing 1.9 cm, favored to be physiologic. The urinary bladder is without significant finding. No suspicious bony findings. IMPRESSION: No acute intra-abdominal process. Incidental and stable findings as above.
[2023-03-07 21:29] LABS: Protime INR 1.04
--- NOTE | 2023-03-07 21:52 | RAD REPORT ---
EXAM DESCRIPTION: RAD - Chest Pa And Lat (2 Views) - 03/07/2023 9:19 pm CLINICAL HISTORY: CHEST PAIN COMPARISON: Chest Single View dated 02/18/2023; Chest Single View dated 09/25/2022; Chest Single View dated 08/28/2022; Chest Single View dated 03/24/2022 TECHNIQUE: PA and lateral views of the chest were obtained. FINDINGS: Subtle airspace opacification in the right middle lobe, suggests early airspace disease, a lthough findings can be exacerbated by some degree of underpenetration. Heart size is normal and cent ral vasculature is within normal limits. No pleural effusion or pneumothorax seen. No acute bony find ing noted. IMPRESSION: Subtle airspace opacification in the right middle lobe, suggests early airspace disease, although findings can be exacerbated by some degree of underpenetration.
[2023-03-07] MEDS ORDERED: KETOROLAC 30 MG/ML INJ ONE (21:59)
--- NOTE | 2023-03-07 22:03 | EDPHYS ---
Physician Documentation [facility] Name: Charity Hanks Age: 43 yrs Sex: Female : 1980 Arrival Date: 03/07/2023 Time: 18:39 Bed 12 Private MD: ED Physician Marty Singh HPI: 03/07 18:49 This 43 yrs old Female presents to ER via Ambulatory with complaints of Abdominal Pain, ms3 Chest Pain. 18:49 43-year-old female with past medical history of anxiety, depression, ms3 hypercholesterolemia, myocardial infarction presents for left lower quadrant abdominal pain that began today. Patient states the pain is 9/10 and described as being sharp. Patient endorses nausea and vomiting. Patient denies diarrhea, fevers, chills. Patient states she has not experienced this pain in the past.. 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 - Social history:: Smoking status: Patient reports the use of cigarette tobacco products, denies chronic smoking, but will smoke occasionally. ROS: 18:49 Constitutional: Negative for fever, and chills. Neck: Negative for injury, pain, and ms3 swelling, Cardiovascular: Negative for chest pain, and palpitations. Respiratory: Negative for shortness of breath, cough, wheezing, and pleuritic chest pain. 18:49 MS/Extremity: Negative for injury and deformity, Skin: Negative for injury, rash, and discoloration. 18:49 Abdomen/GI: Positive for abdominal pain, nausea, vomiting, Negative for diarrhea. 18:49 All other systems are negative. Exam: 18:49 Constitutional: This is a well developed, well nourished patient who is awake, alert, ms3 and in no acute distress. Head/Face: Normocephalic, atraumatic. Chest/axilla: Normal chest wall appearance and motion. Nontender with no deformity. Cardiovascular: Regular rate and rhythm with a normal S1 and S2. No gallops, murmurs, or rubs. Normal PMI, no JVD. No pulse deficits. Respiratory: Lungs have equal breath sounds bilaterally, clear to auscultation and percussion. No rales, rhonchi or wheezes noted. No increased work of breathing, no retractions or nasal flaring. 18:49 Abdomen/GI: Inspection: abdomen appears normal, Bowel sounds: normal, Palpation: moderate abdominal tenderness, in the left lower quadrant. 20:47 ECG was reviewed by the Attending Physician. ms3 Vital Signs: 18:44 BP 139 / 88; Pulse 101; Resp 20; Temp 98.7; Pulse Ox 100% ; Weight 99.79 kg; Height 5 ap3 ft. 2 in. ; Pain 9/10; 20:33 BP 124 / 86; Pulse 84; Resp 18; Pulse Ox 96% on R/A; mb9 22:09 BP 128 / 85; Pulse 80; Resp 18; Pulse Ox 100% on R/A; ap3 18:44 Body Mass Index 40.24 (99.79 kg, 157.48 cm) ap3 18:44 Pain Scale: Adult ap3 MDM: 18:49 Patient medically screened. ms3 18:51 Differential diagnosis: diverticulitis, non-specific abd pain, pancreatitis. ms3 21:36 Transition of care: After a detail discussion of the patient's case, care is ms3 transferred to Marty Singh MD. 22:00 Data reviewed: vital signs, nurses notes, lab test result(s), radiologic studies, CT sp4 scan, plain films. Consideration of Admission/Observation Escalation of care including admission/observation considered. ED course: No sign of UTI, CT abdomen pelvis reveals no acute intra-abdominal or pelvic anomaly.. Patient reported nausea vomiting left lower abdominal pain. Patient has history of cholecystectomy, patient at this time has some tenderness left lower abdomen without rebound or rigidity. Patient stable for discharge home with as needed Bentyl, high-dose ibuprofen, and Phenergan p.o. as needed. Patient was given reports of her work-up and advised to follow-up with her primary care physician. Diagnosis most likely is acute enteritis with some nausea vomiting. . 03/07 18:49 Order name: CBC with Diff; Complete Time: 20:27 ms3 03/07 18:49 Order name: CMP; Complete Time: 20:27 ms3 03/07 18:49 Order name: Lipase; Complete Time: 20:27 ms3 03/07 18:49 Order name: Test, Urine; Complete Time: 20:27 ms3 03/07 18:49 Order name: Urinalysis w/ reflexes; Complete Time: 20:27 ms3 03/07 20:28 Order name: Blood Culture Adult (2) ms3 03/07 20:28 Order name: Lactate w/ 2H reflex if indic.; Complete Time: 21:44 ms3 03/07 20:28 Order name: Protime (+inr); Complete Time: 21:44 ms3 03/07 20:28 Order name: Ptt, Activated; Complete Time: 21:44 ms3 03/07 20:30 Order name: D-Dimer; Complete Time: 21:44 ms3 03/07 21:36 Order name: CREATININE WHOLE BLOOD; Complete Time: 21:44 EDMS 03/07 18:49 Order name: CT Abd/Pelvis - IV Contrast Only; Complete Time: 20:29 ms3 03/07 20:30 Order name: Chest Pa And Lat (2 Views) XRAY; Complete Time: 21:59 ms3 03/07 20:28 Order name: EKG; Complete Time: 20:28 ms3 03/07 18:49 Order name: IV Saline Lock; Complete Time: 19:48 ms3 03/07 18:49 Order name: Labs collected and sent; Complete Time: 19:48 ms3 03/07 20:28 Order name: Accucheck; Complete Time: 20:46 ms3 03/07 20:28 Order name: Cardiac monitoring; Complete Time: 20:30 ms3 03/07 20:28 Order name: EKG - Nurse/Tech; Complete Time: 20:46 ms3 03/07 20:28 Order name: IV Saline Lock - Large Bore; Complete Time: 20:46 ms3 03/07 20:28 Order name: O2 Per Protocol; Complete Time: 20:30 ms3 03/07 20:28 Order name: O2 Sat Monitoring; Complete Time: 20:30 ms3 03/07 20:28 Order name: Vital Signs; Complete Time: 20:30 ms3 EC:47 Rate is 81 beats/min. Rhythm is regular. QRS [place] is Normal. [place] interval is normal. QRS ms3 interval is normal. Clinical impression: Normal ECG. Interpreted by me. Reviewed by me. Administered Medications: 20:09 Drug: NS 0.9% IV 1000 ml Route: IV; Rate: 1 bolus; Site: right hand; mb9 20:09 Drug: Ondansetron IVP 4 mg Route: IVP; Site: right hand; mb9 20:50 Follow up: Response: No adverse reaction mb9 20:50 Drug: Ondansetron IVP 4 mg Route: IVP; Site: right hand; mb9 21:57 Follow up: Response: No adverse reaction mb9 21:50 Drug: Ketorolac IVP 30 mg Route: IVP; Site: right wrist; pf1 21:57 Follow up: Response: No adverse reaction mb9 22:00 Drug: Ativan IVP 1 mg Route: IVP; Site: right hand; ap3 22:20 Follow up: Response: No adverse reaction mb9 22:00 Drug: traMADol PO 50 mg Route: PO; ap3 22:20 Follow up: Response: No adverse reaction mb9 22:00 Drug: Dicyclomine PO 20 mg Route: PO; ap3 22:20 Follow up: Response: No adverse reaction mb9 22:00 Drug: Promethazine PO 25 mg Route: PO; ap3 22:20 Follow up: Response: No adverse reaction mb9 Disposition Summary: 03/07/23 22:02 Discharge Ordered Location: Home sp4 Problem: new sp4 Symptoms: have improved sp4 Condition: Stable sp4 Diagnosis - Other viral enteritis sp4 - Acute enteritis, left lower quadrant abdominal pain, nausea vomiting. Mild sp4 hypokalemia Followup: sp4 - With: Aiden Rosen MD - When: 7 - 10 days - Reason: Recheck today's complaints Discharge Instructions: - Discharge Summary Sheet sp4 - Viral Gastroenteritis, Adult, [id number] sp4 Forms: - Patient Portal Instructions sp4 - Leadership Thank You Letter sp4 Prescriptions: - dicyclomine 20 mg Oral tablet - take 1 tablet by ORAL route every 6 hours PRN abdominal pain; 30 tablet; sp4 Refills: 0, Product Selection Permitted - Ibuprofen 600 mg Oral Tablet - take 1 tablet by ORAL route every 6 hours As needed take with food; 30 tablet; sp4 Refills: 0, Product Selection Permitted - promethazine 25 mg Oral Tablet - take 1 tablet by ORAL route every 6 hours As needed; 20 tablet; Refills: 0, sp4 Product Selection Permitted Signatures: Dispatcher [employer] Becky Claros RN RN ap3 Francis Elias DO DO ms3 Alie Banks RN RN mb9 Leeanne Diego RN RN pf1 Marty Singh MD MD sp4
--- NOTE | 2023-03-07 22:03 | ER ---
Nurse's Notes [facility] Name: Charity Hanks Age: 43 yrs Sex: Female : 1980 Arrival Date: 03/07/2023 Time: 18:39 Bed 12 Private MD: Diagnosis: Other viral enteritis;Acute enteritis, left lower quadrant abdominal pain, nausea vomiting. Mild hypokalemia Presentation: 03/07 18:44 Chief complaint: Patient states: she is having abdominal pain and chest pain that ap3 started this morning. patient currently rates her pain to be a 9/10 on the pain scale. patient also reports nausea but no vomiting. Coronavirus screen: At this time, the client does not indicate any symptoms associated with coronavirus-19. Ebola Screen: No symptoms or risks identified at this time. Initial Sepsis Screen: Does the patient meet any 2 criteria? Yes Does the patient have a suspected source of infection? Yes: Acute abdominal pain. Risk Assessment: Do you want to hurt yourself or someone else? Patient reports no desire to harm self or others. Onset of symptoms was March 07, 2023. 18:44 Method Of Arrival: Ambulatory ap3 18:44 Acuity: CARLOS 3 ap3 Triage Assessment: 18:47 General: Appears distressed, Behavior is anxious. Pain: Complains of pain in left lower ap3 quadrant Pain currently is 9 out of 10 on a pain scale. Quality of pain is described as sharp. Neuro: Level of Consciousness is awake, alert, obeys commands, Oriented to person, place, time, situation. Cardiovascular: Patient's skin is warm and dry. Respiratory: Airway is patent Respiratory effort is even, unlabored, Respiratory pattern is regular, symmetrical. GI: Reports lower abdominal pain, upper abdominal pain, nausea. 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 - Social history:: Smoking status: Patient reports the use of cigarette tobacco products, denies chronic smoking, but will smoke occasionally. Screenin:48 [facility] ED Fall Risk Assessment (Adult) History of falling in the last 3 months, ap3 including since admission No falls in past 3 months (0 pts). Abuse screen: Denies threats or abuse. Nutritional screening: No deficits noted. Tuberculosis screening: No symptoms or risk factors identified. Assessment: 20:09 General: Appears in no apparent distress. Behavior is calm, cooperative. Pain: mb9 Complains of pain in abdomen Pain radiates to left lower quadrant Pain currently is 10 out of 10 on a pain scale. Quality of pain is described as throbbing, Pain began suddenly. Neuro: Lang Agitation-Sedation Scale (RASS): 0 - Alert and Calm Level of Consciousness is awake, alert, obeys commands, Oriented to person, place, time, situation, Appropriate for age. Cardiovascular: Patient's skin is warm and dry. Respiratory: Airway is patent Respiratory effort is even, unlabored, Respiratory pattern is regular, symmetrical, Breath sounds are clear bilaterally. GI: Abdomen is obese, Bowel sounds present X 4 quads. Abd is soft Abdomen is tender to palpation in left upper quadrant and left lower quadrant Reports nausea. Derm: Skin is pink, warm \T\ dry. Musculoskeletal: Range of motion: intact in all extremities. 22:09 Reassessment: No changes from previously documented assessment. Patient and/or family ap3 updated on plan of care and expected duration. Pain level reassessed. Patient is alert, oriented x 3, equal unlabored respirations, skin warm/dry/pink. Vital Signs: 18:44 BP 139 / 88; Pulse 101; Resp 20; Temp 98.7; Pulse Ox 100% ; Weight 99.79 kg; Height 5 ap3 ft. 2 in. ; Pain 9/10; 20:33 BP 124 / 86; Pulse 84; Resp 18; Pulse Ox 96% on R/A; mb9 22:09 BP 128 / 85; Pulse 80; Resp 18; Pulse Ox 100% on R/A; ap3 18:44 Body Mass Index 40.24 (99.79 kg, 157.48 cm) ap3 18:44 Pain Scale: Adult ap3 ED Course: 18:39 Patient arrived in ED. ts1 18:44 Francis Elias DO is Attending Physician. ms3 18:45 Triage completed. ap3 18:48 Arm band placed on left wrist. ap3 19:48 Test, Urine Sent. ap3 19:48 Urinalysis w/ reflexes Sent. ap3 19:49 Initial lab(s) drawn, by me, sent to lab. Urine collected:. Inserted saline lock: 22 ap3 gauge in right wrist, using aseptic technique. 19:59 CT Abd/Pelvis - IV Contrast Only In Process Unspecified. EDMS 20:05 Alie Banks, RN is Primary Nurse. mb9 20:10 Placed in gown. Bed in low position. Call light in reach. Side rails up X 1. Client mb9 placed on continuous cardiac and pulse oximetry monitoring. NIBP monitoring applied. 20:11 No provider procedures requiring assistance completed. mb9 20:46 D-Dimer Sent. mb9 20:46 Troponin High Sensitivity Sent. mb9 20:46 Blood Culture Adult (2) Sent. mb9 20:46 Protime (+inr) Sent. mb9 20:46 Ptt, Activated Sent. mb9 21:21 Chest Pa And Lat (2 Views) XRAY In Process Unspecified. EDMS 21:36 Attending Physician role handed off by Francis Elias DO ms3 21:36 Marty Singh MD is Attending Physician. ms3 22:02 Aiden Rosen MD is Referral Physician. sp4 22:09 IV discontinued, intact, bleeding controlled, No redness/swelling at site. Pressure ap3 dressing applied. Administered Medications: 20:09 Drug: NS 0.9% IV 1000 ml Route: IV; Rate: 1 bolus; Site: right hand; mb9 20:09 Drug: Ondansetron IVP 4 mg Route: IVP; Site: right hand; mb9 20:50 Follow up: Response: No adverse reaction mb9 20:50 Drug: Ondansetron IVP 4 mg Route: IVP; Site: right hand; mb9 21:57 Follow up: Response: No adverse reaction mb9 21:50 Drug: Ketorolac IVP 30 mg Route: IVP; Site: right wrist; pf1 21:57 Follow up: Response: No adverse reaction mb9 22:00 Drug: Ativan IVP 1 mg Route: IVP; Site: right hand; ap3 22:20 Follow up: Response: No adverse reaction mb9 22:00 Drug: traMADol PO 50 mg Route: PO; ap3 22:20 Follow up: Response: No adverse reaction mb9 22:00 Drug: Dicyclomine PO 20 mg Route: PO; ap3 22:20 Follow up: Response: No adverse reaction mb9 22:00 Drug: Promethazine PO 25 mg Route: PO; ap3 22:20 Follow up: Response: No adverse reaction mb9 Medication: 18:48 VIS not applicable for this client. ap3 Outcome: 22:02 Discharge ordered by . [email or web address] 22:20 Discharged to home ambulatory. mb9 22:20 Condition: stable 22:20 Discharge instructions given to patient, Instructed on discharge instructions, follow up and referral plans. Demonstrated understanding of instructions, follow-up care, medications, Prescriptions given X 3. 22:21 Patient left the ED. mb9 Signatures: Dispatcher [employer] EDMS Becky Gutierrez RN RN ap3 Francis Elias DO DO ms3 Alie Banks RN RN mb9 Leeanne Diego RN RN pf1 Marty Singh MD MD sp4 Apple Gomez PAS PAS ts1
[2023-03-07] MEDS ORDERED: LORazepam 2 MG/ML VIAL ONE (22:09)
[2023-03-07] MEDS ORDERED: PROMETHAZINE 25 MG TABLET ONE (22:15)
[2023-03-07] MEDS ORDERED: DICYCLOMINE HCL 10 MG CAP ONE (22:16)
[2023-03-07] MEDS ORDERED: TRAMADOL HCL 50 MG TAB ONE (22:16)
[2023-03-07 23:42] VITALS: TEMP 98.7
[2023-03-07 23:53] VITALS: BP 128/85; O2SAT 100
--- NOTE | 2023-03-08 15:22 | EKG ---
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
== END 2023-03-07 22:21 | disposition home or self-care (01) ==
LOC: ER 18:39
DX: A08.39 Other viral enteritis (principal); E87.6 Hypokalemia; R11.2 Nausea with vomiting, unspecified
CPT/HCPCS: 36415; 71046; 74177; 80053; 81001; 81025; 82565; 83605; 83690; 85025; 85379; 85610; 85730; 87040; 93005; 99284; J2405; J7030; Q0169; Q9967

== ENCOUNTER 2023-05-02 18:45 | Emergency (ER) | payer SELFPAY ==
[2023-05-02 19:52] LABS: Absolute Lymphocytes (CBC) 3.4 K/uL (0.7-4.9); Hematocrit 40.5 % (36.0-45.0); Lymphocytes % 26.6 % (15.3-44.8); MCV 81.7 fL (80-100); MPV 7.7 fL (7.6-11.3); Platelets 362 thou/uL (152-406); RBC Red Blood Cell Count 4.95 M/uL (3.86-4.86)
[2023-05-02 19:53] LABS: Protime INR 0.98
--- NOTE | 2023-05-02 20:10 | RAD REPORT ---
EXAM DESCRIPTION: Akiko Single View05/02/2023 7:46 pm CLINICAL HISTORY: Chest pain COMPARISON: March 2023 FINDINGS: The lungs appear clear of acute infiltrate. The heart is normal size IMPRESSION: No acute abnormalities displayed
[2023-05-02 20:12] LABS: ALT/SGPT 21 U/L (13-56); AST/SGOT 9 U/L (15-37); Albumin 3.1 g/dL (3.4-5.0); Alkaline Phosphatase 88 U/L (45-117); BUN Blood Urea Nitrogen 6 mg/dL (7-18); Bicarbonate 25 mEq/L (21-32); Glomerular Filtration Rate 99 ml/min (=/>90); Glucose Level 128 mg/dL (74-106); Lipase 56 U/L (13-75); Magnesium 1.9 mg/dL (1.6-2.4); Protein, Total 7.2 g/dL (6.4-8.2); Sodium Level 138 mEq/L (136-145); Troponin High Sensitivity 3.5 pg/mL (<58.9)
[2023-05-02] MEDS ORDERED: FAMOTIDINE 20 MG/2 ML VIAL IV ONE (20:12)
[2023-05-02] MEDS ORDERED: ONDANSETRON 4 MG/2 ML VIAL ONE (20:12)
[2023-05-02 20:13] LABS: Bilirubin Direct < 0.1 mg/dL (0-0.2); Bilirubin Indirect, Calculated ND mg/dL (0.2-0.8); Bilirubin Total < 0.1 mg/dL (0.2-1.0)
[2023-05-02 21:18] LABS: Methadone ND (NEGATIVE)
[2023-05-02] MEDS ORDERED: KETOROLAC 30 MG/ML INJ ONE (21:18)
[2023-05-02] MEDS ORDERED: POTASSIUM 25 MEQ EFFERV TAB ONE (21:19)
[2023-05-02] MEDS ORDERED: NA CHLORIDE 0.9% 1,000 ML ONE (21:19)
[2023-05-02 21:28] LABS: Barbiturates NEGATIVE (NEGATIVE); Benzodiazepines NEGATIVE (NEGATIVE); Cocaine NEGATIVE (NEGATIVE); METHAMPHETAM NEGATIVE (NEGATIVE); Opiates NEGATIVE (NEGATIVE); Phencyclidine NEGATIVE (NEGATIVE); THC Cannibis NEGATIVE (NEGATIVE)
--- NOTE | 2023-05-02 21:59 | EDPHYS ---
Physician Documentation [facility] Name: Charity Hanks Age: 43 yrs Sex: Female : 1980 Arrival Date: 05/02/2023 Time: 18:45 Bed 15 Private MD: ED Physician Mayank Butler HPI: 05/02 19:33 This 43 yrs old Female presents to ER via Ambulatory with complaints of Chest Pain, cp Abdominal Pain. 19:33 The patient or guardian reports chest pain that is located primarily in the anterior cp chest wall, left. 19:33 Onset: today, about 1600. The patient presents with abdominal pain in the upper cp abdomen. Onset: The symptoms/episode began/occurred today. The pain radiates to the left shoulder. 19:33 Associated signs and symptoms: Pertinent positives: nausea and vomiting, Pertinent cp negatives: constipation, fever, headache, shortness of breath. 19:33 The symptoms are described as burning. cp 19:33 Severity of pain: in the emergency department the pain is unchanged despite home cp interventions. Historical: - Allergies: 19:20 No Known Allergies; pf1 - PMHx: 19:20 Anxiety; depressive disorder; Hypercholesterolemia; Myocardial infarction; PTSD; pf1 - PSHx: 19:20 Cholecystectomy; Tonsillectomy; pf1 - Immunization history:: Adult Immunizations up to date, Client reports receiving the 2nd dose of the Covid vaccine, Last tetanus immunization: up to date Flu vaccine is not up to date. - Social history:: Smoking status: Patient reports the use of cigarette tobacco products, smokes one-half pack cigarettes per day, Patient/guardian denies using alcohol, street drugs. ROS: 19:37 Constitutional: Negative for body aches, chills, fever, cp 19:37 Cardiovascular: Positive for chest pain, Negative for edema, palpitations, cp 19:37 Respiratory: Negative for cough, shortness of breath, wheezing, 19:37 Eyes: Negative for injury, pain, redness, and discharge, cp 19:37 ENT: Negative for drainage from ear(s), ear pain, sore throat, difficulty swallowing, difficulty handling secretions, 19:37 Abdomen/GI: Positive for abdominal pain, nausea and vomiting, Negative for diarrhea, hematemesis, black/tarry stool, rectal bleeding, 19:37 Neuro: Negative for altered mental status, syncope, 19:37 All other systems are negative, Exam: 19:15 ECG was reviewed by the Attending Physician. cp 19:40 Constitutional: The patient appears in no acute distress, alert, awake, cp non-diaphoretic, non-toxic, well developed, well nourished, obese, 19:40 Head/Face: Normocephalic, atraumatic. cp 19:40 Eyes: Periorbital structures: appear normal, Conjunctiva: normal, no exudate, no injection, Sclera: no appreciated abnormality, Lids and lashes: appear normal, bilaterally, 19:40 ENT: External ear(s): are unremarkable, Nose: is normal, Mouth: Lips: moist, Oral mucosa: pink and intact, moist, Posterior pharynx: is normal, airway is patent, no erythema, no exudate, 19:40 Chest/axilla: Inspection: normal, 19:40 Cardiovascular: Rate: normal, Rhythm: regular, 19:40 Respiratory: the patient does not display signs of respiratory distress, Respirations: normal, no use of accessory muscles, no retractions, labored breathing, is not present, Breath sounds: are clear throughout, no decreased breath sounds, no stridor, no wheezing, 19:40 Abdomen/GI: Inspection: abdomen appears normal, Palpation: soft, in all quadrants, moderate abdominal tenderness, in the epigastric area, right upper quadrant and left upper quadrant, rebound tenderness, is not appreciated, involuntary guarding, is not appreciated, 19:40 Neuro: Orientation: to person, place \T\ time. Mentation: is normal, Motor: moves all fours, strength is normal, Sensation: is normal, Vital Signs: 19:15 BP 119 / 84; Pulse 92; Resp 16; Temp 97.9; Pulse Ox 99% on R/A; Weight 99.79 kg; Height pf1 5 ft. 2 in. ; Pain 9/10; 20:00 BP 145 / 92; Pulse 91; Resp 18 S; Pulse Ox 96% on R/A; ha1 21:00 BP 128 / 81; Pulse 85; Resp 18 S; Pulse Ox 98% on R/A; ha1 22:00 BP 127 / 82; Pulse 84; Resp 17 S; Pulse Ox 96% on R/A; ha1 19:15 Body Mass Index 40.24 (99.79 kg, 157.48 cm) pf1 19:15 Pain Scale: Adult pf1 MDM: 19:29 Patient medically screened. 21:57 Data reviewed: vital signs, nurses notes, lab test result(s), EKG, radiologic studies, cp plain films. 21:57 I considered the following discharge prescriptions or medication management in the emergency department Medications were administered in the Emergency Department. See MAR. Counseling: I had a detailed discussion with the patient and/or guardian regarding the historical points, exam findings, and any diagnostic results supporting the discharge/admit diagnosis, lab results, radiology results, to return to the emergency department if symptoms worsen or persist or if there are any questions or concerns that arise at home. Response to treatment: the patient's symptoms have markedly improved after treatment, vomiting resolved, nausea improved, and as a result, I will discharge patient. Special discussion: Based on the patient's history, exam, and Dx evaluation, there is no indication for emergent intervention or inpatient Tx. It is understood by the patient/guardian that if the Sx's persist or worsen they need to return immediately for re-evaluation. Based on the patient's Hx, exam, and Dx evaluation, there is no indication for emergent surgery or inpatient Tx. It is understood by the patient/guardian that if the Sx's persist or worsen they need to return immediately for re-evaluation. I discussed with the patient their frequent requests for pain medications. Instructions have been given, that in the best interests of the patient, further pain Rx's must come from the patient's PCP or a pain management physician. 05/02 19:30 Order name: Basic Metabolic Panel; Complete Time: 20:14 05/02 20:14 Interpretation: Normal except: K 3.0; GLUC 128; BUN 6. 05/02 19:30 Order name: CBC with Diff; Complete Time: 20:14 05/02 20:14 Interpretation: Normal except: WBC 12.90; RBC 4.95; RDW 15.3; NEUT A 8.6. 05/02 19:30 Order name: LFT's; Complete Time: 20:14 05/02 21:40 Interpretation: Normal except: AST 9; BILIT < 0.1; ALB 3.1; GLOB 4.1; A/G 0.8. cp 05/02 19:30 Order name: Magnesium; Complete Time: 20:14 cp 05/02 19:30 Order name: PT-INR; Complete Time: 20:14 cp 05/02 19:30 Order name: Troponin HS; Complete Time: 20:14 cp 05/02 19:30 Order name: Lipase; Complete Time: 20:14 cp 05/02 20:15 Interpretation: Reviewed. cp 05/02 19:37 Order name: UDS; Complete Time: 21:40 cp 05/02 19:37 Order name: COVID-19 SARS RT PCR; Complete Time: 21:40 cp 05/02 19:30 Order name: XRAY Chest (1 view); Complete Time: 20:14 cp 05/02 19:30 Order name: EKG; Complete Time: 19:31 cp 05/02 19:30 Order name: Cardiac monitoring; Complete Time: 19:37 cp 05/02 19:30 Order name: EKG - Nurse/Tech; Complete Time: 19:37 cp 05/02 19:30 Order name: IV Saline Lock; Complete Time: 19:38 cp 05/02 19:30 Order name: Labs collected and sent; Complete Time: 19:37 cp 05/02 19:30 Order name: O2 Per Protocol; Complete Time: 19:49 cp 05/02 19:30 Order name: O2 Sat Monitoring; Complete Time: 19:49 cp EC:15 Rate is 96 beats/min. Rhythm is regular. CT interval is normal. QRS interval is normal. cp QT interval is normal. T waves are Inverted in lead aVR. Interpreted by me. Reviewed by me. Administered Medications: 20:14 Drug: Ondansetron IVP 4 mg IVP once; over 2 minutes Route: IVP; Site: right antecubital;ha1 20:30 Follow up: Response: No adverse reaction; Nausea is decreased ha1 20:16 Drug: Famotidine IVP 20 mg IVP once; dilute with 10 mL 0.9% NaCl; give over 2 minutes ha1 Route: IVP; Site: right antecubital; 20:30 Follow up: Response: No adverse reaction; Nausea is decreased ha1 21:00 Drug: Potassium PO Effervescent Tablet 50 mEq PO once; dissolve in 4 ounces of water or ha1 juice Route: PO; 22:00 Follow up: Response: No adverse reaction ha1 21:00 Drug: Ketorolac IVP 15 mg IVP once Route: IVP; Site: right antecubital; ha1 21:30 Follow up: Response: No adverse reaction; Pain is decreased ha1 21:00 Drug: NS 0.9% IV 1000 ml IV at 1000 ml/hr Per protocol; 1000 mL bolus Route: IV; Rate: ha1 1000 ml/hr; Site: right antecubital; 22:20 Follow up: Response: No adverse reaction; IV Status: Completed infusion; IV Intake: ha1 1000ml Disposition Summary: 05/02/23 21:58 Discharge Ordered Notes: Location: Home cp Problem: new cp Symptoms: have improved cp Condition: Stable cp Diagnosis - Hypokalemia cp - Nausea with vomiting, unspecified cp - Chest pain, unspecified cp - Abdominal pain, unspecified cp Followup: cp - With: Private Physician - When: 2 - 3 days - Reason: Recheck today's complaints Discharge Instructions: - Discharge Summary Sheet cp - Abdominal Pain, Adult cp - Nonspecific Chest Pain, Adult cp - Nausea and Vomiting, Adult cp - Aspirin and Your Heart cp - Hypokalemia cp Forms: - Medication Reconciliation Form cp - Thank You Letter cp - Antibiotic Education cp - Prescription Opioid Use cp - Patient Portal Instructions cp - Leadership Thank You Letter cp Prescriptions: - Protonix 40 mg Oral Tablet - take 1 tablet ORAL route once daily; 30 tablet; Refills: 0, Product Selection cp Permitted - promethazine 25 mg Oral Tablet - take 1 tablet ORAL route every 6 hours As needed; 20 tablet; Refills: 0, cp Product Selection Permitted Signatures: Dispatcher [employer] EDCT Mayank Arvizu PA PA cp Nelly Morales RN RN ha1 Leeanne Diego RN RN pf1 Corrections: (The following items were deleted from the chart) 05/03 20:14 05/02 19:33 Associated signs and symptoms: Pertinent positives: nausea, Pertinent cp negatives: constipation, fever, headache, shortness of breath, vomiting, cp
--- NOTE | 2023-05-02 21:59 | ER ---
Nurse's Notes [facility] Name: Charity Hanks Age: 43 yrs Sex: Female : 1980 Arrival Date: 05/02/2023 Time: 18:45 Bed 15 Private MD: Diagnosis: Hypokalemia;Nausea with vomiting, unspecified;Chest pain, unspecified;Abdominal pain, unspecified Presentation: 05/02 19:15 Chief complaint: Patient states: left side chest pain of 9 that radiates to left pf1 shoulder blade with abdominal pain and nausea,onset 1600 while laying down watching TV. Coronavirus screen: Vaccine status: Patient reports receiving the 2nd dose of the covid vaccine. Client denies travel out of the [place] in the last 14 days. At this time, the client does not indicate any symptoms associated with coronavirus-19. Ebola Screen: Patient negative for fever greater than or equal to 101.5 degrees Fahrenheit, and additional compatible Ebola Virus Disease symptoms. Initial Sepsis Screen: Does the patient meet any 2 criteria? HR > 90 bpm. No. Patient's initial sepsis screen is negative. Does the patient have a suspected source of infection? No. Patient's initial sepsis screen is negative. Risk Assessment: Do you want to hurt yourself or someone else? Patient reports no desire to harm self or others. 19:15 Method Of Arrival: Ambulatory pf1 19:15 Acuity: CRALOS 2 pf1 19:30 Onset of symptoms was May 03, 2023. ha1 Historical: - Allergies: 19:20 No Known Allergies; pf1 - PMHx: 19:20 Anxiety; depressive disorder; Hypercholesterolemia; Myocardial infarction; PTSD; pf1 - PSHx: 19:20 Cholecystectomy; Tonsillectomy; pf1 - Immunization history:: Adult Immunizations up to date, Client reports receiving the 2nd dose of the Covid vaccine, Last tetanus immunization: up to date Flu vaccine is not up to date. - Social history:: Smoking status: Patient reports the use of cigarette tobacco products, smokes one-half pack cigarettes per day, Patient/guardian denies using alcohol, street drugs. Screenin:00 [facility] ED Fall Risk Assessment (Adult) History of falling in the last 3 months, ha1 including since admission No falls in past 3 months (0 pts) Confusion or Disorientation No (0 pts) Intoxicated or Sedated No (0 pts) Impaired Gait No (0 pts) Mobility Assist Device Used No (0 pt) Altered Elimination No (0 pt) Score/Fall Risk Level 0 - 2 = Low Risk Oriented to surroundings, Maintained a safe environment, Hourly rounding (assess needs \T\ fall precautionary measures) done. Abuse screen: Denies threats or abuse. Denies injuries from another. Nutritional screening: No deficits noted. Tuberculosis screening: No symptoms or risk factors identified. Assessment: 19:30 General: Appears uncomfortable, Behavior is cooperative. Pain: Complains of pain in ha1 chest and abdomen Pain does not radiate. Pain currently is 9 out of 10 on a pain scale. Quality of pain is described as burning, Pain began gradually. Neuro: Level of Consciousness is awake, alert, obeys commands, Oriented to person, place, time, situation. Cardiovascular: Reports chest pain, Heart tones S1 S2 present Capillary refill < 3 seconds Patient's skin is warm and dry. Rhythm is sinus rhythm. Respiratory: Airway is patent Respiratory effort is even, unlabored, Respiratory pattern is regular, symmetrical. GI: Abdomen is round non-distended, Bowel sounds present X 4 quads. Reports upper abdominal pain, nausea, vomiting. : No signs and/or symptoms were reported regarding the genitourinary system. Derm: No signs and/or symptoms reported regarding the dermatologic system. Skin is pink, warm \T\ dry. Musculoskeletal: Circulation, motion, and sensation intact. Range of motion: intact in all extremities. 20:30 Reassessment: Patient and/or family updated on plan of care and expected duration. Pain ha1 level reassessed. Patient is alert, oriented x 3, equal unlabored respirations, skin warm/dry/pink. 21:15 Reassessment: Patient and/or family updated on plan of care and expected duration. Pain ha1 level reassessed. Patient is alert, oriented x 3, equal unlabored respirations, skin warm/dry/pink. Patient states symptoms have improved. 22:15 Reassessment: Patient and/or family updated on plan of care and expected duration. Pain ha1 level reassessed. Patient is alert, oriented x 3, equal unlabored respirations, skin warm/dry/pink. Vital Signs: 19:15 BP 119 / 84; Pulse 92; Resp 16; Temp 97.9; Pulse Ox 99% on R/A; Weight 99.79 kg; Height pf1 5 ft. 2 in. ; Pain 9/10; 20:00 BP 145 / 92; Pulse 91; Resp 18 S; Pulse Ox 96% on R/A; ha1 21:00 BP 128 / 81; Pulse 85; Resp 18 S; Pulse Ox 98% on R/A; ha1 22:00 BP 127 / 82; Pulse 84; Resp 17 S; Pulse Ox 96% on R/A; ha1 19:15 Body Mass Index 40.24 (99.79 kg, 157.48 cm) pf1 19:15 Pain Scale: Adult pf1 ED Course: 18:47 Patient arrived in ED. mr 19:04 Mayank Arvizu PA is PHCP. cp 19:04 Mayank Butler MD is Attending Physician. cp 19:20 Triage completed. pf1 19:30 Patient maintains SpO2 saturation greater than 95% on room air. ha1 19:30 Patient has correct armband on for positive identification. Placed in gown. Bed in low ha1 position. Call light in reach. Side rails up X 1. 19:30 Arm band placed on right wrist. ha1 19:30 Client placed on continuous cardiac and pulse oximetry monitoring. NIBP monitoring ha1 applied. 19:36 Inserted saline lock: 20 gauge in right antecubital area, using aseptic technique. jr12 Blood collected. 19:48 XRAY Chest (1 view) In Process Unspecified. EDMS 19:49 Nelly Morales, RN is Primary Nurse. ha1 20:16 COVID-19 SARS RT PCR Sent. ha1 22:18 No provider procedures requiring assistance completed. IV discontinued, intact, ha1 bleeding controlled, No redness/swelling at site. Pressure dressing applied. 22:19 Provided Education on: medication administration . ha1 Administered Medications: 20:14 Drug: Ondansetron IVP 4 mg IVP once; over 2 minutes Route: IVP; Site: right antecubital;ha1 20:30 Follow up: Response: No adverse reaction; Nausea is decreased ha1 20:16 Drug: Famotidine IVP 20 mg IVP once; dilute with 10 mL 0.9% NaCl; give over 2 minutes ha1 Route: IVP; Site: right antecubital; 20:30 Follow up: Response: No adverse reaction; Nausea is decreased ha1 21:00 Drug: Potassium PO Effervescent Tablet 50 mEq PO once; dissolve in 4 ounces of water or ha1 juice Route: PO; 22:00 Follow up: Response: No adverse reaction ha1 21:00 Drug: Ketorolac IVP 15 mg IVP once Route: IVP; Site: right antecubital; ha1 21:30 Follow up: Response: No adverse reaction; Pain is decreased ha1 21:00 Drug: NS 0.9% IV 1000 ml IV at 1000 ml/hr Per protocol; 1000 mL bolus Route: IV; Rate: ha1 1000 ml/hr; Site: right antecubital; 22:20 Follow up: Response: No adverse reaction; IV Status: Completed infusion; IV Intake: ha1 1000ml Medication: 21:31 VIS not applicable for this client. ha1 Intake: 22:20 IV: 1000ml; Total: 1000ml. ha1 Outcome: 21:58 Discharge ordered by MD. laura 22:18 Discharged to home ambulatory, 1 22:18 Condition: stable 22:18 Discharge instructions given to patient, Instructed on discharge instructions, follow up and referral plans. medication usage, Demonstrated understanding of instructions, follow-up care, medications, Prescriptions given X 2, 22:23 Patient left the ED. ha1 Signatures: Dispatcher [employer] EDIL Alie Hanson, Tyron Reg mr Mayank Arvizu, Nelly Knight cp, RN RN ha1 Leeanne Diego RN RN pf1 Dorcas Dykes jr12 Corrections: (The following items were deleted from the chart) 19:28 19:15 Chief complaint: Patient states: left side chest pain of 9 that radiates to left pf1 shoulder blade,onset 1600 while laying down watching TV. pf1
[2023-05-02 22:46] VITALS: TEMP 97.9
[2023-05-02 22:54] VITALS: BP 127/82; O2SAT 96
--- NOTE | 2023-05-03 15:44 | EKG ---
Test Date: 2023-05-02 Test Time: 19:07:10 Laydown Machine Operator: LAURA MEASUREMENT RESULTS: Intervals: Rate: 96 WA: 132 QRSD: 80 QT: 374 QTc: 472 [place]: P: 62 WA: 132 QRS: 57 T: 59 INTERPRETIVE STATEMENTS: Normal sinus rhythm Normal ECG Compared to ECG 04/21/2023 02:07:13 No significant changes Electronically Signed On 05-03-23 15:42:24 CDT by Neil Arthur
== END 2023-05-02 22:23 | disposition home or self-care (01) ==
LOC: ER 18:45
DX: R07.9 Chest pain, unspecified (principal); E87.6 Hypokalemia; R11.2 Nausea with vomiting, unspecified; R10.9 Unspecified abdominal pain; I25.2 Old myocardial infarction; F43.10 Post-traumatic stress disorder, unspecified; E78.00 Pure hypercholesterolemia, unspecified; F41.9 Anxiety disorder, unspecified; F32.A Depression, unspecified; F17.210 Nicotine dependence, cigarettes, uncomplicated; Z20.822 Contact with and (suspected) exposure to COVID-19
CPT/HCPCS: 36415; 71045; 80048; 80076; 80307; 83690; 83735; 84484; 85025; 85610; 87635; 93005; J2405; J7030

== ENCOUNTER 2023-05-15 22:17 | Emergency (ER) | payer SELFPAY ==
[2023-05-15] MEDS ORDERED: ASPIRIN 81 MG CHEWABLE TABLET ONE (23:38)
[2023-05-16 00:38] LABS: Absolute Lymphocytes (CBC) 3.1 K/uL (0.7-4.9); Hematocrit 39.5 % (36.0-45.0); Lymphocytes % 30.7 % (15.3-44.8); MCV 80.8 fL (80-100); MPV 7.6 fL (7.6-11.3); Platelets 347 thou/uL (152-406); RBC Red Blood Cell Count 4.89 M/uL (3.86-4.86)
[2023-05-16 00:55] LABS: Potassium 3.7 mEq/L (3.5-5.1)
[2023-05-16 00:57] LABS: Magnesium 2.4 mg/dL (1.6-2.4)
[2023-05-16 01:05] LABS: Troponin High Sensitivity 3.2 pg/mL (<58.9)
--- NOTE | 2023-05-16 01:10 | ER ---
Nurse's Notes [facility] Name: Charity Hanks Age: 43 yrs Sex: Female : 1980 Arrival Date: 05/15/2023 Time: 22:17 Bed 13 Private MD: Diagnosis: Chest pain, unspecified Presentation: 05/15 22:26 Chief complaint: Patient states: chest pain/pressure, SOB starting around 1800. lg3 Coronavirus screen: Client denies travel out of the [place] in the last 14 days. At this time, the client does not indicate any symptoms associated with coronavirus-19. Ebola Screen: No symptoms or risks identified at this time. Initial Sepsis Screen: Does the patient meet any 2 criteria? No. Patient's initial sepsis screen is negative. Does the patient have a suspected source of infection? No. Patient's initial sepsis screen is negative. Risk Assessment: Do you want to hurt yourself or someone else? Patient reports no desire to harm self or others. Onset of symptoms was May 15, 2023. 22:26 Method Of Arrival: Ambulatory lg3 22:26 Acuity: CARLOS 3 lg3 Triage Assessment: 22:29 General: Appears in no apparent distress. Behavior is cooperative, anxious. Pain: lg3 Complains of pain in chest Pain radiates to back. EENT: No deficits noted. No signs and/or symptoms were reported regarding the EENT system. Neuro: No deficits noted. Lang Agitation-Sedation Scale (RASS): 0 - Alert and Calm Level of Consciousness is awake, alert, obeys commands, Oriented to person, place, time, situation. Cardiovascular: Reports chest pain, shortness of breath, Capillary refill < 3 seconds Clubbing of nail beds is absent JVD is absent Patient's skin is warm and dry. Respiratory: No deficits noted. Reports shortness of breath Airway is patent Respiratory effort is even, unlabored, Respiratory pattern is regular, symmetrical. GI: No deficits noted. No signs and/or symptoms were reported involving the gastrointestinal system. : No deficits noted. No signs and/or symptoms were reported regarding the genitourinary system. Derm: No deficits noted. No signs and/or symptoms reported regarding the dermatologic system. Skin is intact, is healthy with good turgor, Skin is dry, Skin is normal, Skin temperature is warm. Musculoskeletal: No deficits noted. No signs and/or symptoms reported regarding the musculoskeletal system. Circulation, motion, and sensation intact. Range of motion: intact in all extremities. MANAGER GRANT: 22:29 LMP 05/11/2023, unknown lg3 Historical: - Allergies: 22:29 No Known Allergies; lg3 - Home Meds: 22:29 Xanax Oral [Active]; lg3 - PMHx: 22:29 Anxiety; depressive disorder; Hypercholesterolemia; Myocardial infarction; PTSD; lg3 - PSHx: 22:29 Cholecystectomy; Tonsillectomy; lg3 - Immunization history:: Adult Immunizations up to date. - Social history:: Smoking status: Patient reports the use of cigarette tobacco products, smokes one-half pack cigarettes per day, Patient/guardian denies using alcohol, street drugs. Screenin:21 [facility] ED Fall Risk Assessment (Adult) History of falling in the last 3 months, jw7 including since admission No falls in past 3 months (0 pts) Score/Fall Risk Level 0 - 2 = Low Risk Oriented to surroundings, Maintained a safe environment. Abuse screen: Denies threats or abuse. Denies injuries from another. Nutritional screening: No deficits noted. Tuberculosis screening: No symptoms or risk factors identified. Assessment: 22:40 Reassessment: see triage assessment. jw7 05/16 01:00 Reassessment: Patient appears in no apparent distress at this time. Patient and/or jb4 family updated on plan of care and expected duration. Pain level reassessed. Patient is alert, oriented x 3, equal unlabored respirations, skin warm/dry/pink. Vital Signs: 05/15 22:26 BP 107 / 80; Pulse 101; Resp 19 S; Temp 97.7(O); Pulse Ox 100% on R/A; Weight 99.79 kg lg3 (R); Height 5 ft. 2 in. (R); 05/16 01:00 BP 104 / 73; Pulse 92; Resp 20; Pulse Ox 94% on R/A; jb4 05/15 22:26 Body Mass Index 40.24 (99.79 kg, 157.48 cm) 3 ED Course: 05/15 22:21 Patient arrived in ED. ag3 22:21 Radha Titus FNP-C [facility]. kb 22:21 Mayank Butler MD is Attending Physician. kb 22:29 Triage completed. lg3 22:29 Arm band placed on left wrist. lg3 22:39 XRAY Chest (1 view) In Process Unspecified. EDMS 23:19 Kimberly Taylor, RN is Primary Nurse. jw7 23:21 Patient has correct armband on for positive identification. Bed in low position. Call [facility] light in reach. 05/16 00:08 Initial lab(s) drawn, by ED staff, sent to lab. Inserted saline lock: 20 gauge in right [facility] antecubital area, using aseptic technique. Blood collected. 01:24 No provider procedures requiring assistance completed. IV discontinued, intact, jb4 bleeding controlled, No redness/swelling at site. Pressure dressing applied. Administered Medications: 05/15 23:37 Not Given (Patient Refused): aspirinchewable tablet 324 mg PO once; 81 mg tablets x 4 jw7 05/16 01:14 Drug: Ondansetron IVP 4 mg IVP once; over 2 minutes Route: IVP; Site: right antecubital;jb4 01:14 Follow up: Response: Medication administered at discharge. jb4 01:14 Drug: Ketorolac IVP 15 mg IVP once Route: IVP; Site: right antecubital; jb4 01:14 Follow up: Response: Medication administered at discharge. jb4 Outcome: 01:09 Discharge ordered by . kb 01:24 Discharged to home ambulatory, jb4 01:24 Condition: stable 01:24 Discharge instructions given to patient, Instructed on discharge instructions, follow up and referral plans. Demonstrated understanding of instructions, follow-up care, 01:28 Patient left the ED. jb4 Signatures: Dispatcher [employer] EDMS Radha Titus, SENIOR ENERGY MARKET COORDINATOR-C SENIOR ENERGY MARKET COORDINATOR-CkHerminio Monk, RN RN jb4 Sandy Munoz Lacie, RN RN lg3 Kimberly Taylor, RN RN jw7
--- NOTE | 2023-05-16 01:10 | EDPHYS ---
Physician Documentation [facility] Name: Charity Hanks Age: 43 yrs Sex: Female : 1980 Arrival Date: 05/15/2023 Time: 22:17 Bed 13 Private MD: ED Physician Mayank Butler HPI: 05/15 22:41 This 43 yrs old Female presents to ER via Ambulatory with complaints of Chest Pain, kb Shortness Of Breath. 22:41 Patient is a 43-year-old female who presents for chest pain and shortness of breath kb that started at 5 PM.. DEAN OF ADMISSIONS: 22:29 LMP 05/11/2023, unknown lg3 Historical: - Allergies: 22:29 No Known Allergies; lg3 - Home Meds: 22:29 Xanax Oral [Active]; lg3 - PMHx: 22:29 Anxiety; depressive disorder; Hypercholesterolemia; Myocardial infarction; PTSD; lg3 - PSHx: 22:29 Cholecystectomy; Tonsillectomy; lg3 - Immunization history:: Adult Immunizations up to date. - Social history:: Smoking status: Patient reports the use of cigarette tobacco products, smokes one-half pack cigarettes per day, Patient/guardian denies using alcohol, street drugs. ROS: 22:41 Constitutional: Negative for fever, chills, and weight loss, kb 22:41 Cardiovascular: Positive for chest pain, 22:41 Respiratory: Positive for shortness of breath, 22:41 All other systems are negative, Exam: 22:41 Constitutional: This is a well developed, well nourished patient who is awake, alert, kb and in no acute distress. Head/Face: Normocephalic, atraumatic. ENT: Moist Mucous membranes Cardiovascular: Regular rate Respiratory: Respirations even and unlabored. No increased work of breathing. Talking in full sentences Skin: Warm, dry with normal turgor. Normal color. MS/ Extremity: Pulses equal, no cyanosis. Neurovascular intact. Full, normal range of motion. Neuro: Awake and alert, GCS 15, oriented to person, place, time, and situation. Moves all extremities. Normal gait. Vital Signs: 22:26 BP 107 / 80; Pulse 101; Resp 19 S; Temp 97.7(O); Pulse Ox 100% on R/A; Weight 99.79 kg lg3 (R); Height 5 ft. 2 in. (R); 05/16 01:00 BP 104 / 73; Pulse 92; Resp 20; Pulse Ox 94% on R/A; jb4 05/15 22:26 Body Mass Index 40.24 (99.79 kg, 157.48 cm) lg3 MDM: 05/15 22:21 Patient medically screened. kb 22:42 Differential diagnosis: abnormal EKG, acute myocardial infarction, anxiety, coronary kb artery disease chest wall pain, congestive heart failure. The patient was given aspirin in the Emergency Department. Data reviewed: vital signs, nurses notes. 05/16 01:06 Counseling: I had a detailed discussion with the patient and/or guardian regarding the kb historical points, exam findings, and any diagnostic results supporting the discharge/admit diagnosis, lab results, radiology results, the need for outpatient follow up, a family practitioner, to return to the emergency department if symptoms worsen or persist or if there are any questions or concerns that arise at home. 01:07 Consideration of Admission/Observation Escalation of care including kb admission/observation considered. admission considered for chest pain, HEART score 1, troponin wnl. 05/15 22:27 Order name: Basic Metabolic Panel; Complete Time: 01:05 kb 05/15 22:27 Order name: CBC with Diff; Complete Time: 00:52 kb 05/15 22:27 Order name: Magnesium; Complete Time: 01:05 kb 05/15 22:27 Order name: NT PRO-BNP; Complete Time: 01:05 kb 05/15 22:27 Order name: Troponin HS; Complete Time: 01:05 kb 05/15 22:27 Order name: XRAY Chest (1 view) kb 05/15 22:27 Order name: EKG; Complete Time: 22:28 kb 05/15 22:27 Order name: Cardiac monitoring; Complete Time: 23:37 kb 05/15 22:27 Order name: EKG - Nurse/Tech; Complete Time: 23:37 kb 05/15 22:27 Order name: IV Saline Lock; Complete Time: 00:09 kb 05/15 22:27 Order name: Labs collected and sent; Complete Time: 00:09 kb 05/15 22:27 Order name: O2 Per Protocol; Complete Time: 23:37 kb 05/15 22:27 Order name: O2 Sat Monitoring; Complete Time: 23:37 kb Administered Medications: 05/15 23:37 Not Given (Patient Refused): aspirinchewable tablet 324 mg PO once; 81 mg tablets x 4 jw7 05/16 01:14 Drug: Ondansetron IVP 4 mg IVP once; over 2 minutes Route: IVP; Site: right antecubital;jb4 01:14 Follow up: Response: Medication administered at discharge. jb4 01:14 Drug: Ketorolac IVP 15 mg IVP once Route: IVP; Site: right antecubital; jb4 01:14 Follow up: Response: Medication administered at discharge. jb4 Disposition Summary: 05/16/23 01:09 Discharge Ordered Notes: Location: Home kb Condition: Stable kb Diagnosis - Chest pain, unspecified kb Followup: kb - With: Emergency Department - When: As needed - Reason: Worsening of condition Followup: kb - With: Private Physician - When: 2 - 3 days - Reason: Recheck today's complaints, Continuance of care, Re-evaluation by your physician Discharge Instructions: - Discharge Summary Sheet kb - Nonspecific Chest Pain, Adult, [id number] kb Forms: - Medication Reconciliation Form kb - Thank You Letter kb - Antibiotic Education kb - Prescription Opioid Use kb - Patient Portal Instructions kb - Leadership Thank You Letter kb Signatures: Dispatcher [employer] Radha Hill, KRYSTLE MEDINAP-Herminio Shannon, RN RN jb4 Toyin Uriostegui, RN RN lg3 Kimberly Taylor RN jw7
[2023-05-16] MEDS ORDERED: KETOROLAC 30 MG/ML INJ ONE (01:21)
[2023-05-16] MEDS ORDERED: ONDANSETRON 4 MG/2 ML VIAL ONE (01:21)
[2023-05-16 01:37] VITALS: TEMP 97.7
[2023-05-16 01:43] VITALS: BP 104/73; O2SAT 94
--- NOTE | 2023-05-16 13:25 | RAD REPORT ---
EXAM DESCRIPTION: RAD - Chest Single View - 05/15/2023 10:37 pm CLINICAL HISTORY: Female, 43 years old, CHEST PAIN TECHNIQUE: 1 view COMPARISON: 05/10/2023 (separate facility) FINDINGS: Support devices: None. Lungs/pleura: Low lung volumes with associated vascular crowding and bibasilar opacities favored to r epresent atelectasis. No evident pleural effusion or pneumothorax. Heart and mediastinum: Cardiomediastinal silhouette has normal size and configuration. Other: No acute osseous findings. IMPRESSION: No acute cardiopulmonary findings. Electronically signed by: Ajit Green MD 05/15/2023 11:02 PM TRAVEL AGENCY MANAGER Due to temporary technical issues with the PACS/Fluency reporting system, reports are being signed by the in house radiologist without review as a courtesy to ensure prompt reporting. The interpreting r adiologist is fully responsible for the content of the report.
--- NOTE | 2023-05-18 14:17 | EKG ---
Test Date: 2023-05-16 Test Time: 00:33:24 Beater Lead: MEL MEASUREMENT RESULTS: Intervals: Rate: 92 CO: 142 QRSD: 76 QT: 352 QTc: 435 [place]: P: 28 CO: 142 QRS: -16 T: 34 INTERPRETIVE STATEMENTS: Normal sinus rhythm Right atrial enlargement Borderline ECG Compared to ECG 05/02/2023 19:07:10 Atrial abnormality now present Electronically Signed On 05-18-23 14:09:29 PLUM PACKER by Neil Arthur
== END 2023-05-16 01:28 | disposition home or self-care (01) ==
LOC: ER 22:17
DX: R07.9 Chest pain, unspecified (principal); R06.02 Shortness of breath; F32.A Depression, unspecified; F17.210 Nicotine dependence, cigarettes, uncomplicated
CPT/HCPCS: 36415; 71045; 80048; 83735; 83880; 84484; 85025; 93005; 96374; 96375; 99284; J2405

== ENCOUNTER → 2023-08-07 | Emergency (ER) | payer OTHER ==
[~2023-08-07] MED LIST: CYCLOBENZAPRINE 10 MG TAB ONE; DIAZEPAM 10 MG/2 ML INJ SYRINGE ONE; HYDROCODONE/APAP 10/325 TAB ONE; KETOROLAC 30 MG/ML INJ ONE; MORPHINE 4 MG/ML SYR ONE; NA CHLORIDE 0.9% 1,000 ML ONE; ONDANSETRON 4 MG/2 ML VIAL ONE
[2023-08-07 20:44] LABS: Absolute Lymphocytes (CBC) 2.9 K/uL (0.7-4.9); Hematocrit 37.9 % (36.0-45.0); MCV 76.8 fL (80-100); MPV 7.3 fL (7.6-11.3); Platelets 380 thou/uL (152-406); RBC Red Blood Cell Count 4.94 M/uL (3.86-4.86)
[2023-08-07 20:50] LABS: Specific Gravity 1.019 (1.005-1.030)
[2023-08-07 21:00] LABS: Specific Gravity 1.019 (1.005-1.030); Urine Bacteria <20 /HPF (<20); Urine Bilirubin NEGATIVE (Negative); Urine Blood 3+ (OVER) (Negative); Urine Clarity Extremely Turbid (Clear); Urine Color Light-Yellow (Yellow); Urine Glucose NEGATIVE (Negative); Urine Mucus Slight /HPF (None Seen); Urine Protein TRACE (Negative); Urine Urobilinogen Normal (Normal); Urine pH 5.5 (5.0-7.0)
[2023-08-07 21:17] LABS: Albumin 3.1 g/dL (3.4-5.0); Bilirubin Total 0.2 mg/dL (0.2-1.0); Protein, Total 7.1 g/dL (6.4-8.2)
[2023-08-07 21:26] LABS: Potassium 3.6 mEq/L (3.5-5.1)
--- NOTE | 2023-08-07 21:53 | RAD REPORT ---
EXAM DESCRIPTION: CT - Stone Protocol - 08/07/2023 9:29 pm CLINICAL HISTORY: Abdominal pain. COMPARISON: March 2023 TECHNIQUE: Computed axial tomography of the abdomen pelvis was obtained without oral or IV contrast. Lack of IV and oral contrast limits evaluation of solid organs, appendix, bowel, and vessels. Al l reformatted images were obtained and reviewed. All CT scans are performed using dose optimization technique as appropriate and may include automated exposure control or mA/KV adjustment according to patient size. FINDINGS: A renal calculus is not seen. An ureteral calculus is not noted. A bladder calculus is not present. No hydronephrosis. Small right renal cyst The liver, spleen, pancreas and right adrenal appear grossly normal. Cholecystectomy 2.7 centimeter left adrenal mass is unchanged. Hounsfield unit 1. This represents an adenoma. There is no evidence of diverticulitis. The appendix appears normal 2.7 centimeter right ovarian cyst. No significant free fluid. No further follow up recommended IMPRESSION: Negative for a genitourinary calculus
--- NOTE | 2023-08-07 22:03 | ER ---
Nurse's Notes [facility] Name: Charity Hanks Age: 43 yrs Sex: Female : 1980 Arrival Date: 08/07/2023 Time: 20:00 Bed 4 Private MD: Diagnosis: Low back pain;Acute lower back pain, musculoskeletal pain Presentation: 08/07 20:12 Chief complaint: Patient states: urinary urgency, frequency, and burning with urination km8 since yesterday; left lower back pain starting today with nausea. Coronavirus screen: Client denies travel out of the [place] in the last 14 days. Ebola Screen: No symptoms or risks identified at this time. Initial Sepsis Screen: Does the patient meet any 2 criteria? HR > 90 bpm. No. Patient's initial sepsis screen is negative. Does the patient have a suspected source of infection? No. Patient's initial sepsis screen is negative. Risk Assessment: Do you want to hurt yourself or someone else? Patient reports no desire to harm self or others. Onset of symptoms was August 06, 2023. 20:12 Method Of Arrival: Ambulatory km8 20:12 Acuity: CARLOS 3 km8 Triage Assessment: 20:16 General: Appears in no apparent distress. uncomfortable, Behavior is cooperative, km8 appropriate for age. Pain: Complains of pain in left low back Pain currently is 9 out of 10 on a pain scale. Quality of pain is described as sharp, Is continuous. EENT: No signs and/or symptoms were reported regarding the EENT system. Neuro: Level of Consciousness is awake, alert, obeys commands, Oriented to person, place, time, situation. Cardiovascular: Denies chest pain, shortness of breath, Capillary refill < 3 seconds Patient's skin is warm and dry. Respiratory: Airway is patent Respiratory effort is even, unlabored, Respiratory pattern is regular, symmetrical. GI: : Reports burning with urination, urgency, urinary frequency. Derm: No signs and/or symptoms reported regarding the dermatologic system. Skin is intact, is healthy with good turgor, Skin is dry, Skin is pink, warm \T\ dry. normal, Skin temperature is warm. Musculoskeletal: Circulation, motion, and sensation intact. Range of motion: intact in all extremities. 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 - Social history:: Smoking status: Patient reports the use of cigarette tobacco products, smokes one-half pack cigarettes per day, Patient/guardian denies using alcohol, street drugs. - Family history:: not pertinent. Screenin:03 [facility] ED Fall Risk Assessment (Adult) History of falling in the last 3 months, rv including since admission No falls in past 3 months (0 pts) Confusion or Disorientation No (0 pts) Intoxicated or Sedated No (0 pts) Impaired Gait No (0 pts) Mobility Assist Device Used No (0 pt) Altered Elimination No (0 pt) Score/Fall Risk Level 0 - 2 = Low Risk Oriented to surroundings, Maintained a safe environment, Educated pt \T\ family on fall prevention, incl call for assistance when getting out of bed. Abuse screen: Denies threats or abuse. Denies injuries from another. Nutritional screening: No deficits noted. Tuberculosis screening: No symptoms or risk factors identified. Assessment: 21:03 General: Appears in no apparent distress. uncomfortable, Behavior is calm, cooperative, rv appropriate for age. Pain: Complains of pain in back and left low back Pain currently is 9 out of 10 on a pain scale. Quality of pain is described as sharp, Pain began 1 day ago. Is continuous. Neuro: Level of Consciousness is awake, alert, obeys commands, Oriented to person, place, time, situation. Cardiovascular: Capillary refill < 3 seconds Patient's skin is warm and dry. Respiratory: Airway is patent Respiratory effort is even, unlabored. GI: No deficits noted. : Reports urinary frequency, since one day ago. Vital Signs: 20:12 BP 129 / 113; Pulse 106; Resp 16; Temp 98.9(TE); Pulse Ox 98% on R/A; Weight 99.79 kg km8 (R); Height 5 ft. 2 in. (R); Pain 9/10; 21:03 BP 128 / 70; Pulse 87; Resp 20; Pulse Ox 99% on R/A; rv 21:48 BP 143 / 79; Pulse 89; Resp 19; Pulse Ox 96% on R/A; rv 20:12 Body Mass Index 40.24 (99.79 kg, 157.48 cm) km8 20:12 Pain Scale: Adult km8 [place] Coma Score: 21:03 Eye Response: spontaneous(4). Motor Response: obeys commands(6). Verbal Response: rv oriented(5). Total: 15. ED Course: 20:04 Patient arrived in ED. [email or web address] 20:05 Marty Singh MD is Attending Physician. sp4 20:16 Triage completed. km8 20:16 Arm band placed on right wrist. km8 20:19 Calderon Meyers, JAMES is Primary Nurse. rv 20:38 CBC with Diff Sent. rv 20:38 CMP Sent. rv 20:38 Test, Urine Sent. rv 20:38 Urinalysis W/Microscopic Sent. rv 21:03 Patient has correct armband on for positive identification. Bed in low position. Call rv light in reach. Side rails up X 1. Provided Education on: medication education done. Client placed on continuous cardiac and pulse oximetry monitoring. NIBP monitoring applied. alarm security or surveillance monitor on. 21:03 No provider procedures requiring assistance completed. Inserted saline lock: 20 gauge rv in right forearm, using aseptic technique. Blood collected. 21:31 Stone Protocol In Process Unspecified. EDMS 22:37 IV discontinued, intact, bleeding controlled, No redness/swelling at site. Pressure ha1 dressing applied. Administered Medications: 21:01 Drug: NS 0.9% IV 1000 ml IV at 1 bolus Per protocol; 1000 mL bolus Route: IV; Rate: 1 rv bolus; Site: right forearm; 21:02 Drug: Ketorolac IVP 30 mg IVP once Route: IVP; Site: right forearm; rv 21:02 Drug: Ondansetron IVP 8 mg IVP once; over 2 minutes Route: IVP; Site: right forearm; rv 21:02 Drug: [place] PO 10 mg-325 mg 1 tabs PO once Route: PO; rv 22:00 Follow up: Response: No adverse reaction; Marked relief of symptoms ha1 21:02 Drug: Cyclobenzaprine PO 10 mg PO once Route: PO; rv 22:00 Follow up: Response: No adverse reaction; Marked relief of symptoms ha1 21:47 Drug: Diazepam IVP 5 mg IVP once Route: IVP; Site: right forearm; rv 22:00 Follow up: Response: No adverse reaction ha1 21:48 Drug: morphine IVP or IV 4 mg IVP once over 4 mins Route: IVP; Infused Over: 4 mins; rv Site: right forearm; 22:00 Follow up: Response: No adverse reaction; Pain is decreased; RASS: Alert and Calm (0) ha1 Medication: 21:03 VIS not applicable for this client. rv Outcome: 22:03 Discharge ordered by . [email or web address] 22:36 Discharged to home ambulatory, ha1 22:36 Condition: stable 22:36 Discharge instructions given to patient, Instructed on discharge instructions, follow up and referral plans. medication usage, Demonstrated understanding of instructions, follow-up care, medications, Prescriptions given X 4, 22:37 Patient left the ED. ha1 Signatures: Dispatcher [employer] EDMS Calderon Meyers RN RN rv Sarah Majano [email or web address] Nelly Morales RN RN 1 Marty Singh MD MD sp4 Shaneka Lara RN RN km8
--- NOTE | 2023-08-07 22:03 | EDPHYS ---
Physician Documentation [facility] Name: Charity Hanks Age: 43 yrs Sex: Female : 1980 Arrival Date: 08/07/2023 Time: 20:00 Bed 4 Private MD: ED Physician Marty Singh HPI: 08/07 20:05 This 43 yrs old Other Female presents to ER via Unassigned with complaints of Pain With sp4 Urination, Low Back Pain. 20:13 Allergies: No Known Allergies; PMHx: Anxiety; depressive disorder; Myocardial sp4 infarction; PTSD PSHx: Cholecystectomy; Tonsillectomy;. Patient presents with acute onset of left lower back pain starting at noon today. Pain is moderate to severe constant. Patient states there is pain and burning on urination. No bloody urine. Patient has history of depressive disorder she was recently at [facility]. Patient takes Zoloft 50 mg p.o. daily Vistaril 50 mg p.o. 3 times daily as needed, and Remeron before bedtime. Reports moderate to severe left lower back pain with worsening with movement. Denied any pain or weakness in the legs.. 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 - Social history:: Smoking status: Patient reports the use of cigarette tobacco products, smokes one-half pack cigarettes per day, Patient/guardian denies using alcohol, street drugs. - Family history:: not pertinent. ROS: 20:13 Constitutional: Negative for fever, chills, and weight loss, positive back pain, sp4 positive pain and burning with urination 20:13 All other systems are negative, Exam: 20:13 Constitutional: This is a well developed, well nourished patient who is awake, alert, sp4 mild distress secondary to pain Head/Face: Normocephalic, atraumatic. Eyes: Pupils equal round and reactive to light, extra-ocular motions intact. Lids and lashes normal. Conjunctiva and sclera are not injected. Cornea within normal limits. Periorbital areas with no swelling, redness, or edema. ENT: Nares patent. No nasal discharge, no septal abnormalities noted. Tympanic membranes are normal and external auditory canals are clear. Oropharynx with no redness, swelling, or masses, exudates, or evidence of obstruction, uvula midline. Mucous membranes moist. Neck: Trachea midline, no thyromegaly or masses palpated, and no cervical lymphadenopathy. Supple, full range of motion without nuchal rigidity, or vertebral point tenderness. Chest/axilla: Normal chest wall appearance and motion. Nontender with no deformity. No lesions are appreciated. Cardiovascular: Regular rate and rhythm with a normal S1 and S2. No gallops, murmurs, or rubs. Normal PMI, no JVD. No pulse deficits. Respiratory: Lungs have equal breath sounds bilaterally, clear to auscultation and percussion. No rales, rhonchi or wheezes noted. No increased work of breathing, no retractions or nasal flaring. Abdomen/GI: Soft, non-tender, with normal bowel sounds. No distension or tympany. No guarding or rebound. No evidence of tenderness throughout. Back: No spinal tenderness. No costovertebral tenderness. Skin: Warm, dry with normal turgor. Normal color with no rashes, no lesions, and no evidence of cellulitis. MS/ Extremity: Pulses equal, no cyanosis. Neurovascular intact. Full, normal range of motion. Neuro: Awake and alert, GCS 15, oriented to person, place, time, and situation. Cranial nerves II-XII grossly intact. Motor strength 5/5 in all extremities. Sensory grossly intact. Psych: Awake, alert, with orientation to person, place and time. Behavior, mood, and affect are within normal limits Vital Signs: 20:12 BP 129 / 113; Pulse 106; Resp 16; Temp 98.9(TE); Pulse Ox 98% on R/A; Weight 99.79 kg km8 (R); Height 5 ft. 2 in. (R); Pain 9/10; 21:03 BP 128 / 70; Pulse 87; Resp 20; Pulse Ox 99% on R/A; rv 21:48 BP 143 / 79; Pulse 89; Resp 19; Pulse Ox 96% on R/A; rv 20:12 Body Mass Index 40.24 (99.79 kg, 157.48 cm) [facility] 20:12 Pain Scale: Adult [facility] Coma Score: 21:03 Eye Response: spontaneous(4). Motor Response: obeys commands(6). Verbal Response: rv oriented(5). Total: 15. MDM: 20:06 Patient medically screened. sp4 20:17 Differential diagnosis: arthritis, strain, sciatica, contusion, Herniated disc UTI. sp4 Data reviewed: vital signs, nurses notes, lab test result(s), radiologic studies, CT scan. Consideration of Admission/Observation Escalation of care including admission/observation considered. 22:00 ED course: CT today reveals no emergent findings, no urinary calculus, incidental sp4 nonemergent findings as noted on the CAT scan report. This seems to be musculoskeletal in origin and improved with medications in the ER. . 22:00 ED course: [place] [id number] sp4 RADIOLOGYSERVICES REPORT Name: CHARITY HANKS Acct Number: [id number] :1980 Age:43 Sex:F Ord Phys: Marty Singh MD Unit Number: [id number] [place] [facility] Dr: Aiden Rosen MD III Status: [facility] ER ER Exam Date: 08/07/23 EXAM DESCRIPTION: CT - Stone Protocol - 08/07/2023 9:29 pm CLINICAL HISTORY: Abdominal pain. COMPARISON: March 2023 TECHNIQUE: Computed axial tomography of the abdomen pelvis was obtained without oral or IV contrast. Lack of IV and oral contrast limits evaluation of solid organs, appendix, bowel, and vessels. Coronal reformatted images were obtained and reviewed. All CT scans are performed using dose optimization technique as appropriate and may include automated exposure control or mA/KV adjustment according to patient size. FINDINGS: A renal calculus is not seen. An ureteral calculus is not noted. A bladder calculus is not present. No hydronephrosis. Small right renal cyst The liver, spleen, pancreas and right adrenal appear grossly normal. Cholecystectomy 2.7 centimeter left adrenal mass is unchanged. Hounsfield unit 1. This represents an adenoma. There is no evidence of diverticulitis. The appendix appears normal 2.7 centimeter right ovarian cyst. No significant free fluid. No further follow up recommended IMPRESSION: Negative for a genitourinary calculus. 08/07 20:06 Order name: Urinalysis W/Microscopic; Complete Time: 21:22 sp4 08/07 20:06 Order name: Test, Urine; Complete Time: 21:22 sp4 08/07 20:12 Order name: CBC with Diff; Complete Time: 20:47 sp4 08/07 20:12 Order name: CMP; Complete Time: 21:43 sp4 08/07 21:17 Order name: Stone Protocol; Complete Time: 21:56 EDMS 08/07 20:12 Order name: IV Saline Lock; Complete Time: 20:38 sp4 08/07 20:12 Order name: Labs collected and sent; Complete Time: 20:38 sp4 Administered Medications: 21:01 Drug: NS 0.9% IV 1000 ml IV at 1 bolus Per protocol; 1000 mL bolus Route: IV; Rate: 1 rv bolus; Site: right forearm; 21:02 Drug: Ketorolac IVP 30 mg IVP once Route: IVP; Site: right forearm; rv 21:02 Drug: Ondansetron IVP 8 mg IVP once; over 2 minutes Route: IVP; Site: right forearm; rv 21:02 Drug: [place] PO 10 mg-325 mg 1 tabs PO once Route: PO; rv 22:00 Follow up: Response: No adverse reaction; Marked relief of symptoms ha1 21:02 Drug: Cyclobenzaprine PO 10 mg PO once Route: PO; rv 22:00 Follow up: Response: No adverse reaction; Marked relief of symptoms ha1 21:47 Drug: Diazepam IVP 5 mg IVP once Route: IVP; Site: right forearm; rv 22:00 Follow up: Response: No adverse reaction ha1 21:48 Drug: morphine IVP or IV 4 mg IVP once over 4 mins Route: IVP; Infused Over: 4 mins; rv Site: right forearm; 22:00 Follow up: Response: No adverse reaction; Pain is decreased; RASS: Alert and Calm (0) ha1 Disposition Summary: 08/07/23 22:03 Discharge Ordered Notes: Location: Home sp4 Problem: new sp4 Symptoms: have improved sp4 Condition: Stable sp4 Diagnosis - Low back pain sp4 - Acute lower back pain, musculoskeletal pain sp4 Followup: sp4 - With: Private Physician - When: 7 - 10 days - Reason: Recheck today's complaints Discharge Instructions: - Discharge Summary Sheet sp4 - Acute Back Pain, Adult sp4 Forms: - Patient Portal Instructions sp4 Prescriptions: - naproxen 250 mg Oral tablet - take 1 tablet ORAL route every 8 hours PRN pain; 60 tablet; Refills: 0, Product sp4 Selection Permitted - Cyclobenzaprine 10 mg Oral Tablet - take 1 tablet ORAL route every 8 hours As needed; 30 tablet; Refills: 0, sp4 Product Selection Permitted - Tramadol 50 mg Oral Tablet - take 1 tablet ORAL route every 8 hours as needed; 12 tablet; Refills: 0, sp4 Product Selection Permitted - promethazine 25 mg Oral tablet - take 1 tablet ORAL route every 8 hours As needed PRN nausea; 30 tablet; sp4 Refills: 0, Product Selection Permitted Signatures: Dispatcher [employer] Calderon Mayorga, RN RN Marty Singh MD MD sp4 Shaneka Lara RN RN km8 Nelly Morales RN ha1 Corrections: (The following items were deleted from the chart) 21:17 20:12 Abdomen Pelvis Wo [id number] ordered. EDMS CUEVAS
[2023-08-08 01:16] VITALS: BP 143/79; TEMP 98.9; O2SAT 96
== END ==
LOC: ER 20:00
DX: M54.50 Low back pain, unspecified (principal); M79.18 Myalgia, other site; R30.0 Dysuria; F17.210 Nicotine dependence, cigarettes, uncomplicated
CPT/HCPCS: 36415; 74176; 76377; 80053; 81001; 81025; 85025; J2405; J3360; J7030

== ENCOUNTER → 2023-08-28 | Emergency (ER) | payer OTHER ==
[~2023-08-28] MED LIST changes: +CEFTRIAXONE 1000 MG/VIAL ONE; +CIPROFLOXACIN HCL 500 MG TAB ONE; -CYCLOBENZAPRINE 10 MG TAB ONE; -DIAZEPAM 10 MG/2 ML INJ SYRINGE ONE; -HYDROCODONE/APAP 10/325 TAB ONE
[2023-08-28 19:15] LABS: Specific Gravity 1.012 (1.005-1.030)
[2023-08-28 19:19] LABS: Specific Gravity 1.012 (1.005-1.030); Urine Bacteria <20 /HPF (<20); Urine Bilirubin NEGATIVE (Negative); Urine Blood Negative (Negative); Urine Clarity Extremely Turbid (Clear); Urine Color Light-Yellow (Yellow); Urine Glucose NEGATIVE (Negative); Urine Mucus Slight /HPF (None Seen); Urine Protein NEGATIVE (Negative); Urine RBC <5 /HPF (None Seen); Urine Urobilinogen Normal (Normal); Urine pH 5.5 (5.0-7.0)
[2023-08-28 19:30] LABS: Absolute Lymphocytes (CBC) 2.4 K/uL (0.7-4.9); Hematocrit 38.7 % (36.0-45.0); MCV 76.8 fL (80-100); MPV 7.2 fL (7.6-11.3); Platelets 326 thou/uL (152-406); RBC Red Blood Cell Count 5.03 M/uL (3.86-4.86)
[2023-08-28 19:51] LABS: Bilirubin Total 0.2 mg/dL (0.2-1.0); Potassium 3.5 mEq/L (3.5-5.1)
--- NOTE | 2023-08-28 20:37 | RAD REPORT ---
EXAM DESCRIPTION: CT - Abdomen Pelvis Wo Contrast - 08/28/2023 7:40 pm CLINICAL HISTORY: R flank pain COMPARISON: Stone Protocol dated 08/07/2023; Abdomen Pelvis W Contrast dated 03/15/2023; Abdomen Pe lvis W Contrast dated 03/07/2023; Stone Protocol dated 09/06/2022 TECHNIQUE: Thin cut axial CT imaging of the abdomen and pelvis was performed without IV contrast. Mu ltiplanar reformats were generated and reviewed. All CT scans are performed using dose optimization technique as appropriate and may include automated exposure control or mA/KV adjustment according to patient size. FINDINGS: No suspicious findings in the lung bases. The liver, spleen, right adrenal gland, and pancreas show no suspicious findings. Left adrenal gland demonstrates a stable 2.6 cm adenoma with density less than 10 Hounsfield units. Gallbladder was surg ically removed Symmetric renal contour, without suspicious parenchymal findings within limits of noncontrast techniq ue. No evidence of radiopaque calculi or hydroureteronephrosis. No dilated bowel loops or bowel wall thickening. No free air, free fluid or inflammatory stranding. N o hernia, mass or bulky lymphadenopathy. The urinary bladder is without significant finding. No suspicious bony findings. IMPRESSION: No acute intra-abdominal process. Stable left adrenal adenoma.
--- NOTE | 2023-08-28 20:50 | ER ---
Nurse's Notes [facility] Name: Charity Hanks Age: 43 yrs Sex: Female : 1980 Arrival Date: 08/28/2023 Time: 17:26 Bed Treatment Private MD: Diagnosis: Dysuria;Unspecified symptoms and signs involving the musculoskeletal system Presentation: 08/28 17:45 Chief complaint: Patient states: RIGHT FLANK PAIN STARTED TODAY. BURNING WITH URINATION db SINCE YESTERDAY. Coronavirus screen: Vaccine status: Patient reports receiving the 2nd dose of the covid vaccine. Client denies travel out of the [place] in the last 14 days. At this time, the client does not indicate any symptoms associated with coronavirus-19. Ebola Screen: Patient negative for fever greater than or equal to 101.5 degrees Fahrenheit, and additional compatible Ebola Virus Disease symptoms Patient denies exposure to infectious person. Patient denies travel to an Ebola-affected area in the 21 days before illness onset. No symptoms or risks identified at this time. Initial Sepsis Screen: Does the patient meet any 2 criteria? No. Patient's initial sepsis screen is negative. Does the patient have a suspected source of infection? No. Patient's initial sepsis screen is negative. Risk Assessment: Do you want to hurt yourself or someone else? Patient reports no desire to harm self or others. Onset of symptoms was August 28, 2023. 17:45 Method Of Arrival: Ambulatory db 17:45 Acuity: CARLOS 3 db Triage Assessment: 17:47 General: Appears in no apparent distress. uncomfortable, Behavior is calm, cooperative. db Pain: Complains of pain in back. Neuro: Level of Consciousness is awake, alert, obeys commands, Oriented to person, place, time, situation. Respiratory: Airway is patent Respiratory effort is even, unlabored, Respiratory pattern is regular, symmetrical. Historical: - Allergies: 17:47 No Known Allergies; db - PMHx: 17:47 Anxiety; depressive disorder; Myocardial infarction; PTSD; db - PSHx: 17:47 Cholecystectomy; Tonsillectomy; db - Immunization history:: Adult Immunizations unknown. - Social history:: Smoking status: Patient reports the use of cigarette tobacco products, smokes one-half pack cigarettes per day. Screenin:16 [facility] ED Fall Risk Assessment (Adult) History of falling in the last 3 months, ha1 including since admission No falls in past 3 months (0 pts) Confusion or Disorientation No (0 pts) Intoxicated or Sedated No (0 pts) Impaired Gait No (0 pts) Mobility Assist Device Used No (0 pt) Altered Elimination No (0 pt) Score/Fall Risk Level 0 - 2 = Low Risk Oriented to surroundings, Maintained a safe environment, Educated pt \T\ family on fall prevention, incl call for assistance when getting out of bed, Hourly rounding (assess needs \T\ fall precautionary measures) done. Abuse screen: Denies threats or abuse. Denies injuries from another. Nutritional screening: No deficits noted. Tuberculosis screening: No symptoms or risk factors identified. Assessment: 19:25 General: Appears uncomfortable, Behavior is calm, cooperative. Pain: Complains of pain ha1 in back Pain radiates to pelvis Pain currently is 9 out of 10 on a pain scale. Quality of pain is described as throbbing, Pain began gradually. Neuro: Level of Consciousness is awake, alert, obeys commands, Oriented to person, place, time, situation. Cardiovascular: Capillary refill < 3 seconds Patient's skin is warm and dry. Respiratory: Airway is patent Respiratory effort is even, unlabored, Respiratory pattern is regular, symmetrical. GI: No signs and/or symptoms were reported involving the gastrointestinal system. : Urine is cloudy, Reports burning with urination, pain flank(s), urinary frequency. 20:20 Reassessment: Patient and/or family updated on plan of care and expected duration. Pain ha1 level reassessed. Patient is alert, oriented x 3, equal unlabored respirations, skin warm/dry/pink. Vital Signs: 17:45 BP 143 / 111; Pulse 115; Resp 18; Temp 98.4; Pulse Ox 95% ; Weight 99.79 kg; Height 5 db ft. 2 in. ; Pain 9/10; 19:25 BP 146 / 86; Pulse 97; Resp 19 S; Pulse Ox 98% on R/A; ha1 20:20 BP 129 / 85; Pulse 95; Resp 17 S; Pulse Ox 98% on R/A; ha1 17:45 Body Mass Index 40.24 (99.79 kg, 157.48 cm) db 17:45 Pain Scale: Adult db ED Course: 17:29 Patient arrived in ED. ae5 17:31 Darius Jarrell MD is Attending Physician. ec2 17:47 Triage completed. db 17:48 Arm band placed on. db 17:57 Radiology exam delayed due to test not completed at this time. nj 18:21 Radiology exam delayed due to test not completed at this time. nj 18:50 Yaritza Jane, RN is Primary Nurse. me1 19:00 Patient has correct armband on for positive identification. Placed in gown. Bed in low ha1 position. Call light in reach. Side rails up X 1. 19:06 UAM Sent. me1 19:06 Test, Urine Sent. me1 19:24 Inserted saline lock: 20 gauge in right forearm, using aseptic technique. Accessed ha1 peripheral vein via ultrasound, utilizing dynamic ultrasound technique. 19:41 CT Abd/Pelvis - Without Contrast In Process Unspecified. EDMS 19:45 Provided Education on: medication administration . ha1 20:25 Attending Physician role handed off by Darius Jarrell MD ec2 20:25 Mayank Butler MD is Attending Physician. ec2 21:17 No provider procedures requiring assistance completed. IV discontinued, intact, ha1 bleeding controlled, No redness/swelling at site. Pressure dressing applied. Administered Medications: 17:48 CANCELLED (Physician Discretion): [id number] mg IM once ec2 19:45 Drug: NS 0.9% IV 1000 ml IV at 1 bolus Per protocol; 1000 mL bolus Route: IV; Rate: 1 ha1 bolus; Site: right forearm; 21:15 Follow up: Response: No adverse reaction; IV Status: Completed infusion; IV Intake: ha1 1000ml 19:46 Drug: Ketorolac IVP 15 mg IVP once Route: IVP; Site: right forearm; ha1 20:20 Follow up: Response: No adverse reaction; Pain is decreased ha1 19:47 Drug: Ondansetron Oral Disintegrating Tablet Oral Disintegrating Tablet 4 mg PO once ha1 Route: PO; 20:20 Follow up: Response: No adverse reaction ha1 19:49 Drug: morphine IVP or IV 4 mg IVP once over 4 mins Route: IVP; Infused Over: 4 mins; ha1 Site: right forearm; 20:20 Follow up: Response: No adverse reaction; Pain is decreased; RASS: Alert and Calm (0) ha1 21:00 Drug: Rocephin IV 1 grams IV at per protocol once; Given slow IV push per pharmacy ha1 instructions Route: IV; Rate: per protocol; Site: right forearm; 21:16 Follow up: Response: No adverse reaction; IV Status: Completed infusion ha1 21:00 Drug: Ciprofloxacin PO 500 mg PO once Route: PO; ha1 21:16 Follow up: Response: No adverse reaction ha1 Medication: 21:17 VIS not applicable for this client. ha1 Intake: 21:15 IV: 1000ml; Total: 1000ml. ha1 Outcome: 20:49 Discharge ordered by . madeleine 21:17 Discharged to home ambulatory, 1 21:17 Condition: stable 21:17 Discharge instructions given to patient, Instructed on discharge instructions, follow up and referral plans. Demonstrated understanding of instructions, follow-up care, medications, Prescriptions given X 3, 21:19 Patient left the ED. ha1 Signatures: Dispatcher [employer] EDMS Mayank Butler MD MD cha Jordan, Nathan nj Ayala, Heidy, RN RN ha1 Christina Lozano RN RN db Eddleman, Michelle, RN RN co1 Darius Jarrell MD MD ec2 Taylor Yousif ae5 Corrections: (The following items were deleted from the chart) 17:48 17:45 Pulse 115bpm; Resp 18bpm; Pulse Ox 95%; Temp 98.4F; 99.79 kg; Height 5 ft. 2 in.; db BMI: 40.2; Pain 9/10, Adult; db
--- NOTE | 2023-08-28 20:50 | EDPHYS ---
Physician Documentation [facility] Name: Charity Hanks Age: 43 yrs Sex: Female : 1980 Arrival Date: 08/28/2023 Time: 17:26 Bed Treatment Private MD: ED Physician Mayank Butler HPI: 08/28 17:44 This 43 yrs old Female presents to ER via Unassigned with complaints of ec2 Urinary Problem, Back Pain. 17:44 Patient arrives today for evaluation of urinary problems. Patient reports that she is ec2 having dysuria, is also having right flank pain. Patient reports some associated nausea without vomiting. Patient denies any fevers or chills, no cough or cold symptoms.. Historical: - Allergies: 17:47 No Known Allergies; db - PMHx: 17:47 Anxiety; depressive disorder; Myocardial infarction; PTSD; db - PSHx: 17:47 Cholecystectomy; Tonsillectomy; db - Immunization history:: Adult Immunizations unknown. - Social history:: Smoking status: Patient reports the use of cigarette tobacco products, smokes one-half pack cigarettes per day. ROS: 17:44 Constitutional: as per hpi ec2 Exam: 17:44 Constitutional: GEN: NAD Head: atraumatic Eyes: EOMI Ears: External ears are ec2 normal. CV: regular rate LUNGS: no respiratory distress ABD: non-distended, soft, nontender, guarding, not rigid SKIN: no evidence of rashes MSK: no evidence of trauma NEURO: moves all extremities equally Vital Signs: 17:45 BP 143 / 111; Pulse 115; Resp 18; Temp 98.4; Pulse Ox 95% ; Weight 99.79 kg; Height 5 db ft. 2 in. ; Pain 9/10; 19:25 BP 146 / 86; Pulse 97; Resp 19 S; Pulse Ox 98% on R/A; ha1 20:20 BP 129 / 85; Pulse 95; Resp 17 S; Pulse Ox 98% on R/A; ha1 17:45 Body Mass Index 40.24 (99.79 kg, 157.48 cm) db 17:45 Pain Scale: Adult db MDM: 17:42 Patient medically screened. ec2 17:44 Data reviewed: vital signs. ED course: Patient arrives today for evaluation of urinary ec2 problems and flank pain. Examination remarkable for findings as noted above. Will obtain urine studies to evaluate for UTI/pyelonephritis. Will treat the patient with Toradol and Zofran.. 19:21 ED course: Urine noninfectious appearing. Urine Prag negative.. ec2 20:09 ED course: CBC with slight leukocytosis, metabolic profile with appropriate renal ec2 function. Pending CT imaging. . 20:25 ED course: Patient signed out to oncoming physician with pending imaging.. ec2 08/28 17:43 Order name: UAM; Complete Time: 19:21 ec2 08/28 17:48 Order name: CBC with Diff; Complete Time: 20:08 ec2 08/28 17:48 Order name: CMP; Complete Time: 20:08 ec2 08/28 18:33 Order name: Test, Urine; Complete Time: 19:21 kb 08/28 20:52 Order name: Urine Culture [facility] 08/28 17:48 Order name: CT Abd/Pelvis - Without Contrast; Complete Time: 20:44 ec2 Administered Medications: 17:48 CANCELLED (Physician Discretion): [id number] mg IM once ec2 19:45 Drug: NS 0.9% IV 1000 ml IV at 1 bolus Per protocol; 1000 mL bolus Route: IV; Rate: 1 ha1 bolus; Site: right forearm; 21:15 Follow up: Response: No adverse reaction; IV Status: Completed infusion; IV Intake: ha1 1000ml 19:46 Drug: Ketorolac IVP 15 mg IVP once Route: IVP; Site: right forearm; ha1 20:20 Follow up: Response: No adverse reaction; Pain is decreased ha1 19:47 Drug: Ondansetron Oral Disintegrating Tablet Oral Disintegrating Tablet 4 mg PO once ha1 Route: PO; 20:20 Follow up: Response: No adverse reaction ha1 19:49 Drug: morphine IVP or IV 4 mg IVP once over 4 mins Route: IVP; Infused Over: 4 mins; ha1 Site: right forearm; 20:20 Follow up: Response: No adverse reaction; Pain is decreased; RASS: Alert and Calm (0) ha1 21:00 Drug: Rocephin IV 1 grams IV at per protocol once; Given slow IV push per pharmacy ha1 instructions Route: IV; Rate: per protocol; Site: right forearm; 21:16 Follow up: Response: No adverse reaction; IV Status: Completed infusion ha1 21:00 Drug: Ciprofloxacin PO 500 mg PO once Route: PO; ha1 21:16 Follow up: Response: No adverse reaction ha1 Disposition Summary: 08/28/23 20:49 Discharge Ordered Notes: Location: Home [facility] Problem: new madeleine Symptoms: have improved madeleine Condition: Stable madeleine Diagnosis - Dysuria madeleine - Unspecified symptoms and signs involving the musculoskeletal system madeleine Followup: madeleine - With: Private Physician - When: 2 - 3 days - Reason: Recheck today's complaints, Re-evaluation by your physician Discharge Instructions: - Discharge Summary Sheet madeleine - Dysuria madeleine - Flank Pain, Adult madeleine - Flank Pain, Adult, [id number] Forms: - Medication Reconciliation Form madeleine - Thank You Letter madeleine - Antibiotic Education madeleine - Prescription Opioid Use madeleine - Patient Portal Instructions madeleine - Leadership Thank You Letter madeleine Prescriptions: - diclofenac sodium 50 mg Oral tablet, delayed release (enteric coated) - take 1 tablet ORAL route every 12 hours as needed for pain; 20 tablet; Refills: madeleine 0, Product Selection Permitted - Cipro 250 mg Oral tablet - take 1 tablet ORAL route every 12 hours; 14 tablet; Refills: 0, Product madeleine Selection Permitted - Cyclobenzaprine 5 mg Oral Tablet - take 1 tablet ORAL route 3 times per day As needed; 15 tablet; Refills: 0, madeleine Product Selection Permitted Signatures: Dispatcher [employer] Mayank Wright MD MD cha Ayala, Heidy, RN RN ha1 Christina Lozano RN RN Darius Jarrell MD MD ec2 Corrections: (The following items were deleted from the chart) 17:48 17:43 Ketorolac IM 30 mg IM once ordered. ec2 ec2
[2023-08-28 21:36] VITALS: BP 129/85; TEMP 98.4; O2SAT 98
== END ==
LOC: ER 17:26
DX: R30.0 Dysuria (principal); R29.91 Unspecified symptoms and signs involving the musculoskeletal system; R11.0 Nausea; F17.210 Nicotine dependence, cigarettes, uncomplicated
CPT/HCPCS: 87088; 85025; 81001; 87086; 36415; 81025; 80053; 74176; J2405; J7030; J0696

== ENCOUNTER 2023-10-03 20:56 | Emergency (ER) | payer OTHER ==
[2023-10-03] MEDS ORDERED: ONDANSETRON 4 MG/2 ML VIAL ONE (23:03)
[2023-10-03] MEDS ORDERED: KETOROLAC 30 MG/ML INJ ONE (23:04)
[2023-10-03] MEDS ORDERED: DIAZEPAM 5 MG TABLET ONE (23:04)
[2023-10-03] MEDS ORDERED: NA CHLORIDE 0.9% 1,000 ML ONE (23:04)
[2023-10-03] MEDS ORDERED: methocarbamoL 750 MG TAB ONE (23:04)
[2023-10-03 23:13] LABS: Specific Gravity 1.009 (1.005-1.030)
[2023-10-03 23:16] LABS: Specific Gravity 1.009 (1.005-1.030); Sqamous Epithelial <5 /HPF (None Seen); Urine Bacteria <20 /HPF (<20); Urine Bilirubin NEGATIVE (Negative); Urine Blood 3+ (OVER) (Negative); Urine Clarity Extremely Turbid (Clear); Urine Color Light-Red (Yellow); Urine Culture Reflex Order REFLEXED; Urine Glucose NEGATIVE (Negative); Urine Ketones NEGATIVE (Negative); Urine Microscopic Reflex YN ORDER UMIC; Urine Mucus Slight /HPF (None Seen); Urine Nitrite NEGATIVE (Negative); Urine Protein 1+ (Negative); Urine RBC >50 /HPF (None Seen); Urine Urobilinogen Normal (Normal); Urine WBC 20-50 /HPF (<5); Urine pH 6.5 (5.0-7.0)
[2023-10-03 23:39] LABS: Absolute Basophils 0.2 K/uL (0-0.5); Absolute Eosinophils 0.1 K/uL (0-0.5); Absolute Lymphocytes (CBC) 3.5 K/uL (0.7-4.9); Absolute Monocytes 0.5 K/uL (0.1-1.3); Absolute Neutrophil 6.8 K/uL (1.8-8.0); Basophils % 1.4 % (0-1.3); Hematocrit 38.9 % (36.0-45.0); Hemoglobin 13.2 g/dL (12.0-15.0); Lymphocytes % 31.4 % (15.3-44.8); MCH 26.6 pg (27.0-35.0); MCHC 33.9 g/dL (32.0-36.0); MCV 78.7 fL (80-100); MPV 7.7 fL (7.6-11.3); Monocytes % 4.8 % (3.3-12.3); Neutrophils % 61.4 % (41.7-73.7); Nucleated Red Blood Cells % 0.1 % (0-0); Platelets 357 thou/uL (152-406); RBC Red Blood Cell Count 4.94 M/uL (3.86-4.86); Red Cell Distribution Width 18.1 % (12.1-15.2)
[2023-10-03 23:52] LABS: Albumin 3.1 g/dL (3.4-5.0); Albumin/Globulin Ratio 0.9 (1.1-1.8); Anion Gap 7.9 mEq/L (5.0-15.0); Bilirubin Total 0.1 mg/dL (0.2-1.0); Globulin 3.6 g/dL (2.3-3.5); Potassium 3.9 mEq/L (3.5-5.1); Protein, Total 6.7 g/dL (6.4-8.2)
[2023-10-04] MEDS ORDERED: IBUPROFEN 400 MG TAB ONE (01:13)
--- NOTE | 2023-10-04 01:13 | EDPHYS ---
Physician Documentation [facility] Name: Charity Hanks Age: 43 yrs Sex: Female : 1980 Arrival Date: 10/03/2023 Time: 20:56 Bed 13 Private MD: ED Physician Marty Singh HPI: 10/02 21:12 This 43 yrs old Female presents to ER via Unassigned with complaints of Back sp4 Pain, Urinary Problem. 10/03 07:17 Patient presents with acute bilateral lower back pain and also complaining of pain with sp4 urination . [employer]: 10/02 21:34 LMP 10/03/2023, unknown jj7 Historical: - Allergies: 21:34 No Known Allergies; jj7 - PMHx: 21:34 Anxiety; depressive disorder; Myocardial infarction; PTSD; jj7 - PSHx: 21:34 Cholecystectomy; Tonsillectomy; jj7 - Immunization history:: Client reports receiving the 2nd dose of the Covid vaccine, Flu vaccine is not up to date. - Social history:: Smoking status: Patient reports the use of cigarette tobacco products, smokes one-half pack cigarettes per day, Patient/guardian denies using alcohol, street drugs, IV drugs. - Family history:: not pertinent. ROS: 10/03 07:17 Constitutional: Negative for fever, chills, and weight loss, positive for dysuria, sp4 positive for lower back pain All other systems are negative, Exam: 07:17 Constitutional: This is a well developed, well nourished patient who is awake, alert, sp4 and in no acute distress. Head/Face: Normocephalic, atraumatic. Eyes: Pupils equal round and reactive to light, extra-ocular motions intact. Lids and lashes normal. Conjunctiva and sclera are not injected. Cornea within normal limits. Periorbital areas with no swelling, redness, or edema. ENT: Nares patent. No nasal discharge, no septal abnormalities noted. Tympanic membranes are normal and external auditory canals are clear. Oropharynx with no redness, swelling, or masses, exudates, or evidence of obstruction, uvula midline. Mucous membranes moist. Neck: Trachea midline, no thyromegaly or masses palpated, and no cervical lymphadenopathy. Supple, full range of motion without nuchal rigidity, or vertebral point tenderness. Chest/axilla: Normal chest wall appearance and motion. Nontender with no deformity. No lesions are appreciated. Cardiovascular: Regular rate and rhythm with a normal S1 and S2. No gallops, murmurs, or rubs. Normal PMI, no JVD. No pulse deficits. Respiratory: Lungs have equal breath sounds bilaterally, clear to auscultation and percussion. No rales, rhonchi or wheezes noted. No increased work of breathing, no retractions or nasal flaring. Abdomen/GI: Soft, with normal bowel sounds. No distension or tympany. No guarding or rebound. No evidence of tenderness throughout. Back: No spinal tenderness. No costovertebral tenderness. Skin: Warm, dry with normal turgor. Normal color with no rashes, no lesions, and no evidence of cellulitis. MS/ Extremity: Pulses equal, no cyanosis. Neurovascular intact. Full, normal range of motion. Neuro: Awake and alert, GCS 15, oriented to person, place, time, and situation. Cranial nerves II-XII grossly intact. Motor strength 5/5 in all extremities. Sensory grossly intact. Psych: Awake, alert, with orientation to person, place and time. Behavior, mood, and affect are within normal limits Vital Signs: 10/02 21:29 BP 163 / 128; Pulse 100; Resp 18; Temp 98; Pulse Ox 100% ; Weight 99.79 kg; Height 5 jj7 ft. 2 in. ; Pain 9/10; 21:42 BP 165 / 105; Pulse 73; Resp 16; Pulse Ox 96% ; me1 22:31 BP 156 / 87; Pulse 99; Resp 18; Pulse Ox 98% on R/A; me1 23:16 BP 131 / 108; Pulse 80; Resp 16; Pulse Ox 99% on R/A; me1 23:16 BP 135 / 119; Pulse 112; Resp 18; Pulse Ox 98% ; me1 10/03 00:33 BP 126 / 109; Pulse 96; Resp 17; Pulse Ox 99% ; jj7 01:30 BP 156 / 99; Pulse 85; Resp 16; Temp 97.8; Pulse Ox 100% on R/A; Pain 5/10; pf1 10/02 21:29 Body Mass Index 40.24 (99.79 kg, 157.48 cm) jj7 10/02 21:29 Pain Scale: Adult jj7 01:30 Pain Scale: Adult pf1 MDM: 10/02 21:12 Patient medically screened. sp4 10/03 01:07 ED course: This CT exam was performed according to our departmental dose-optimization sp4 program, which includes one or more of the following dose reduction techniques: automated exposure control, adjustment of the mA and/or kV according to patient size, and/or use of iterative reconstruction technique. COMPARISON: 09/10/2023 FINDINGS: There are no renal, ureteral, or bladder calculi. There is no hydronephrosis or perinephric stranding on either side. The appendix is normal. There is no bowel inflammation, obstruction, free intraperitoneal air, or ascites. Minimal bibasilar atelectasis. Prior cholecystectomy without biliary dilatation. Stable left adrenal adenoma, benign. Stable benign subcentimeter left renal cyst. The unenhanced liver, pancreas, spleen, right adrenal gland, right kidney, uterus, ovaries, urinary bladder, and osseous structures are normal. IMPRESSION: No urolithiasis or appendicitis. No acute abdominal or pelvic findings. Stable benign left adrenal adenoma. . 01:09 ED course: This CT exam was performed according to our departmental dose-optimization sp4 program, which includes one or more of the following dose reduction techniques: automated exposure control, adjustment of the mA and/or kV according to patient size, and/or use of iterative reconstruction technique. COMPARISON: 09/10/2023 FINDINGS: There are no renal, ureteral, or bladder calculi. There is no hydronephrosis or perinephric stranding on either side. The appendix is normal. There is no bowel inflammation, obstruction, free intraperitoneal air, or ascites. Minimal bibasilar atelectasis. Prior cholecystectomy without biliary dilatation. Stable left adrenal adenoma, benign. Stable benign subcentimeter left renal cyst. The unenhanced liver, pancreas, spleen, right adrenal gland, right kidney, uterus, ovaries, urinary bladder, and osseous structures are normal. IMPRESSION: No urolithiasis or appendicitis. No acute abdominal or pelvic findings. Stable benign left adrenal adenoma. . 07:17 Differential diagnosis: Fatigue Fracture Ligament Injury Ureterolithiasis. Data sp4 reviewed: vital signs, nurses notes. Consideration of Admission/Observation Escalation of care including admission/observation considered. 10/02 21:12 Order name: Test, Urine; Complete Time: 01:07 sp4 10/02 21:12 Order name: Urinalysis w/ reflexes; Complete Time: 01:07 sp4 10/02 22:44 Order name: CBC with Diff; Complete Time: 01:07 sp4 10/02 22:44 Order name: CMP; Complete Time: 01:07 sp4 10/02 22:44 Order name: Lipase; Complete Time: 01:07 sp4 10/02 23:31 Order name: Urine Culture EDMS 10/02 22:44 Order name: CT Abd/Pelvis - Without Contrast sp4 10/02 22:44 Order name: IV Saline Lock; Complete Time: 23:17 sp4 10/02 22:44 Order name: Labs collected and sent; Complete Time: 23:17 sp4 Administered Medications: 10/02 23:13 Drug: Ketorolac IVP 30 mg IVP once Route: IVP; Site: right hand; me1 23:52 Follow up: Response: No adverse reaction; Pain is unchanged, physician notified me1 10/03 00:36 Follow up: Response: Pain is unchanged, physician notified jj7 10/02 23:13 Drug: Methocarbamol PO 750 mg PO once Route: PO; me1 23:53 Follow up: Response: No adverse reaction; Pain is unchanged, physician notified me1 23:13 Drug: Ondansetron IVP 4 mg IVP once; over 2 minutes Route: IVP; Site: right hand; me1 23:53 Follow up: Response: No adverse reaction; Nausea is decreased me1 23:14 Drug: Diazepam PO 10 mg PO once Route: PO; me1 23:53 Follow up: Response: No adverse reaction; Pain is unchanged, physician notified me1 23:14 Drug: NS 0.9% IV 1000 ml IV at 1 bolus Per protocol; 1000 mL bolus Route: IV; Rate: 1 me1 bolus; Site: right hand; 10/03 01:20 Drug: Ibuprofen PO 800 mg PO once Route: PO; jj7 Disposition Summary: 10/04/23 01:12 Discharge Ordered Notes: Location: Home sp4 Problem: new sp4 Symptoms: have improved sp4 Condition: Stable sp4 Diagnosis - Low back pain sp4 - UTI/ Urinary tract infection, site not specified sp4 Followup: sp4 - With: Private Physician - When: 7 - 10 days - Reason: Recheck today's complaints Discharge Instructions: - Discharge Summary Sheet sp4 - Urinary Tract Infection, Adult sp4 Forms: - Patient Portal Instructions sp4 Prescriptions: - Macrobid 100 mg Oral Capsule - take 1 capsule ORAL route every 12 hours for 7 days; 14 capsule; Refills: 0, sp4 Product Selection Permitted - methocarbamol 750 mg Oral tablet - take 2 tablets ORAL route 4 times per day for 3 days; 40 tablet; Refills: 0, sp4 Product Selection Permitted Signatures: Dispatcher [employer] Giancarlo Allen RN RN jj7 Marty Singh MD MD sp4 Yaritza Jane RN RN me1
--- NOTE | 2023-10-04 01:13 | ER ---
Nurse's Notes [facility] Name: Charity Hanks Age: 43 yrs Sex: Female : 1980 Arrival Date: 10/03/2023 Time: 20:56 Bed 13 Private MD: Diagnosis: Low back pain;UTI/ Urinary tract infection, site not specified Presentation: 10/02 21:29 Chief complaint: Patient states: BURNING WITH URINATION AND BACK PAIN STARTED jj7 YESTERDAY. Coronavirus screen: At this time, the client does not indicate any symptoms associated with coronavirus-19. Ebola Screen: No symptoms or risks identified at this time. Initial Sepsis Screen: Does the patient meet any 2 criteria? HR > 90 bpm. Yes Does the patient have a suspected source of infection? No. Patient's initial sepsis screen is negative. Risk Assessment: Do you want to hurt yourself or someone else? Patient reports no desire to harm self or others. 21:29 Method Of Arrival: [facility] 21:29 Acuity: CARLOS 3 jj7 23:49 Onset of symptoms was October 02, 2023. sc1 Triage Assessment: 21:34 General: Appears in no apparent distress. uncomfortable, Behavior is calm, cooperative, jj7 appropriate for age. Pain: Complains of pain in posterior aspect of right lateral abdomen and posterior aspect of left lateral abdomen. : Reports burning with urination, pain with urination, urgency, urinary frequency. 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 - Social history:: Smoking status: Patient reports the use of cigarette tobacco products, smokes one-half pack cigarettes per day, Patient/guardian denies using alcohol, street drugs, IV drugs. - Family history:: not pertinent. Screenin:35 [facility] ED Fall Risk Assessment (Adult) History of falling in the last 3 months, jj7 including since admission No falls in past 3 months (0 pts) Confusion or Disorientation No (0 pts) Intoxicated or Sedated No (0 pts) Impaired Gait No (0 pts) Mobility Assist Device Used No (0 pt) Altered Elimination No (0 pt) Score/Fall Risk Level 0 - 2 = Low Risk Oriented to surroundings, Maintained a safe environment, Educated pt \T\ family on fall prevention, incl call for assistance when getting out of bed. Abuse screen: Denies threats or abuse. Nutritional screening: No deficits noted. Tuberculosis screening: No symptoms or risk factors identified. Assessment: 22:16 General: Appears in no apparent distress. uncomfortable, well groomed, well developed, pf1 Behavior is calm, cooperative, appropriate for age, quiet. 22:16 Pain: Complains of pain in bilateral flank pain Pain currently is 9 out of 10 on a pain pf1 scale. Pain began this AM. Neuro: No deficits noted. Level of Consciousness is awake, alert, obeys commands, Oriented to person, place, time, situation. Cardiovascular: No deficits noted. Capillary refill < 3 seconds Patient's skin is warm and dry. Respiratory: No deficits noted. Airway is patent Respiratory effort is even, unlabored, Respiratory pattern is regular, symmetrical. GI: Abdomen is round non-distended, Bowel sounds present X 4 quads. : Reports burning with urination, since yesterday urgency, urinary frequency. EENT: No deficits noted. No signs and/or symptoms were reported regarding the EENT system. Derm: No deficits noted. No signs and/or symptoms reported regarding the dermatologic system. Musculoskeletal: Reports pain in back since this AM. Pain is 9 out of 10 on a pain scale. 23:46 General: Appears uncomfortable, well groomed, well developed, Behavior is calm, me1 cooperative, appropriate for age. Pain: Complains of pain in back and posterior aspect of left lateral abdomen and posterior aspect of right lateral abdomen Pain does not radiate. Pain currently is 9 out of 10 on a pain scale. Quality of pain is described as sharp, Pain began 1 day ago. Neuro: Level of Consciousness is awake, alert, obeys commands, Oriented to person, place, time, situation. Cardiovascular: Capillary refill < 3 seconds Patient's skin is warm and dry. Respiratory: Respiratory effort is even, unlabored, Respiratory pattern is regular, symmetrical. GI: Abdomen is round non-distended, Bowel sounds present X 4 quads. : Reports burning with urination, urgency, urinary frequency. EENT: No signs and/or symptoms were reported regarding the EENT system. Derm: Skin is intact, is healthy with good turgor, Skin is pink, warm \T\ dry. Musculoskeletal: Reports pain in back and posterior aspect of left lateral abdomen and posterior aspect of right lateral abdomen. 10/03 00:33 Reassessment: ASSUMED CARE OF PT. PT IN BED STATES TORADOL DOESN'T WORK ON HER. THAT jj7 MORPHINE USUALLY WORKS ON HER. MD INFORMED. Vital Signs: 10/02 21:29 BP 163 / 128; Pulse 100; Resp 18; Temp 98; Pulse Ox 100% ; Weight 99.79 kg; Height 5 jj7 ft. 2 in. ; Pain 9/10; 21:42 BP 165 / 105; Pulse 73; Resp 16; Pulse Ox 96% ; me1 22:31 BP 156 / 87; Pulse 99; Resp 18; Pulse Ox 98% on R/A; me1 23:16 BP 131 / 108; Pulse 80; Resp 16; Pulse Ox 99% on R/A; me1 23:16 BP 135 / 119; Pulse 112; Resp 18; Pulse Ox 98% ; me1 10/03 00:33 BP 126 / 109; Pulse 96; Resp 17; Pulse Ox 99% ; jj7 01:30 BP 156 / 99; Pulse 85; Resp 16; Temp 97.8; Pulse Ox 100% on R/A; Pain 5/10; pf1 10/02 21:29 Body Mass Index 40.24 (99.79 kg, 157.48 cm) j7 10/02 21:29 Pain Scale: Adult jj7 01:30 Pain Scale: Adult pf1 ED Course: 10/02 20:59 Patient arrived in ED. rg4 21:12 Claudia Harris PA-C is PHCP. sb4 21:12 Marty Singh MD is Attending Physician. sb4 21:34 Triage completed. jj7 21:34 Arm band placed on left wrist. jj7 21:35 Patient has correct armband on for positive identification. jj7 22:38 Yaritza Jane RN is Primary Nurse. me1 22:47 Test, Urine Sent. me1 22:47 Urinalysis w/ reflexes Sent. me1 22:47 Urine collected: clean catch specimen, blood tinged, bloody. Patient is on her period. me1 23:17 CBC with Diff Sent. oe 23:17 CMP Sent. oe 23:17 Lipase Sent. oe 23:17 Inserted saline lock: 22 gauge in right hand, using aseptic technique. Blood collected. oe 23:45 CT Abd/Pelvis - Without Contrast In Process Unspecified. EDMS 23:48 Provided Education on: POC. Verbalized understanding. . me1 23:48 No provider procedures requiring assistance completed. me1 10/03 01:35 IV discontinued, intact, bleeding controlled, No redness/swelling at site. Pressure pf1 dressing applied. Administered Medications: 10/02 23:13 Drug: Ketorolac IVP 30 mg IVP once Route: IVP; Site: right hand; me1 23:52 Follow up: Response: No adverse reaction; Pain is unchanged, physician notified me1 10/03 00:36 Follow up: Response: Pain is unchanged, physician notified jj7 10/02 23:13 Drug: Methocarbamol PO 750 mg PO once Route: PO; me1 23:53 Follow up: Response: No adverse reaction; Pain is unchanged, physician notified me1 23:13 Drug: Ondansetron IVP 4 mg IVP once; over 2 minutes Route: IVP; Site: right hand; me1 23:53 Follow up: Response: No adverse reaction; Nausea is decreased me1 23:14 Drug: Diazepam PO 10 mg PO once Route: PO; me1 23:53 Follow up: Response: No adverse reaction; Pain is unchanged, physician notified me1 23:14 Drug: NS 0.9% IV 1000 ml IV at 1 bolus Per protocol; 1000 mL bolus Route: IV; Rate: 1 me1 bolus; Site: right hand; 10/03 01:20 Drug: Ibuprofen PO 800 mg PO once Route: PO; jj7 Medication: 10/02 23:49 VIS not applicable for this client. me1 Outcome: 10/03 01:12 Discharge ordered by . sp4 01:35 Discharged to home ambulatory, pf1 01:35 Condition: improved pf1 01:35 Discharge instructions given to patient, Instructed on discharge instructions, follow up and referral plans. Demonstrated understanding of instructions, follow-up care, medications, Prescriptions given X 2, 01:50 Patient left the ED. pf1 Signatures: Dispatcher [employer] EDDeisy Meléndez rg4 Charly Yousif Juwairiyah RN RN jj7 Claudia Harris, PA-C PA-C sb4 Leeanne Diego RN RN pf1 Marty Singh MD MD sp4 Yaritza Jane RN RN me1 Corrections: (The following items were deleted from the chart) 10/02 21:35 21:34 Arm band placed on right wrist. jj7 jj7 23:53 23:53 Response: No adverse reaction; Pain is unchanged, physician notified me1 me1
[2023-10-04 02:06] VITALS: BP 156/99; TEMP 97.8; O2SAT 100
--- NOTE | 2023-10-04 17:13 | RAD REPORT ---
EXAM DESCRIPTION: Abdomen Pelvis Wo Contrast CLINICAL HISTORY: 43 years Female bilateral back pain TECHNIQUE: Contiguous axial images obtained through the abdomen and pelvis without IV contrast. Abel nal and sagittal reformatted images provided. This CT exam was performed according to our departmental dose-optimization program, which includes on e or more of the following dose reduction techniques: automated exposure control, adjustment of the m A and/or kV according to patient size, and/or use of iterative reconstruction technique. COMPARISON: 09/10/2023 FINDINGS: There are no renal, ureteral, or bladder calculi. There is no hydronephrosis or perinephri c stranding on either side. The appendix is normal. There is no bowel inflammation, obstruction, free intraperitoneal air, or asc ites. Minimal bibasilar atelectasis. Prior cholecystectomy without biliary dilatation. Stable left adrenal adenoma, benign. Stable benign subcentimeter left renal cyst. The unenhanced liver, pancreas, spleen, right adrenal gland, right kidney, uterus, ovaries, urinary b ladder, and osseous structures are normal. IMPRESSION: No urolithiasis or appendicitis. No acute abdominal or pelvic findings. Stable benign left adrenal adenoma. Electronically signed by: Amanda Sawant MD 10/04/2023 12:03 AM CDT Due to temporary technical issues with the PACS/Fluency reporting system, reports are being signed by the in house radiologists without review as a courtesy to insure prompt reporting. The interpreting radiologist is fully responsible for the content of the report.
== END 2023-10-04 01:50 | disposition home or self-care (01) ==
LOC: ER 20:56
DX: N39.0 Urinary tract infection, site not specified (principal); F17.210 Nicotine dependence, cigarettes, uncomplicated
CPT/HCPCS: 87088; 85025; 81001; 87086; 36415; 81025; 83690; 80053; 74176; 96375; 96374; 99284; J2405; J7030

== ENCOUNTER 2023-11-17 20:08 | Emergency (ER) | payer OTHER ==
[2023-11-17 20:57] LABS: Absolute Basophils 0.1 K/uL (0-0.5); Absolute Eosinophils 0.3 K/uL (0-0.5); Absolute Lymphocytes (CBC) 3.2 K/uL (0.7-4.9); Absolute Monocytes 0.4 K/uL (0.1-1.3); Absolute Neutrophil 4.8 K/uL (1.8-8.0); Basophils % 1.4 % (0-1.3); Eosinophils % 3.1 % (0-4.4); Hematocrit 39.6 % (36.0-45.0); Lymphocytes % 36.7 % (15.3-44.8); MCH 25.9 pg (27.0-35.0); MCHC 32.9 g/dL (32.0-36.0); MCV 78.8 fL (80-100); MPV 7.5 fL (7.6-11.3); Monocytes % 4.3 % (3.3-12.3); Neutrophils % 54.5 % (41.7-73.7); Platelets 404 thou/uL (152-406); RBC Red Blood Cell Count 5.02 M/uL (3.86-4.86); Red Cell Distribution Width 16.9 % (12.1-15.2)
[2023-11-17] MEDS ORDERED: LORazepam 2 MG/ML VIAL ONE (21:12)
[2023-11-17] MEDS ORDERED: ASPIRIN 81 MG CHEWABLE TABLET ONE (21:13)
[2023-11-17] MEDS ORDERED: NA CHLORIDE 0.9% 1,000 ML ONE (21:13)
[2023-11-17] MEDS ORDERED: MORPHINE 2 MG/ML SYR ONE (21:13)
[2023-11-17 21:25] LABS: ALT/SGPT 23 U/L (13-56); AST/SGOT 15 U/L (15-37); Albumin/Globulin Ratio 0.8 (1.1-1.8); Alkaline Phosphatase 92 U/L (45-117); Anion Gap 11.4 mEq/L (5.0-15.0); BUN Blood Urea Nitrogen 10 mg/dL (7-18); Bicarbonate 21 mEq/L (21-32); Globulin 3.8 g/dL (2.3-3.5); Glomerular Filtration Rate 88 ml/min (=/>90); Glucose Level 140 mg/dL (74-106); NT PRO-BNP 14 pg/mL (<125); Potassium 3.4 mEq/L (3.5-5.1); Protein, Total 6.8 g/dL (6.4-8.2); Sodium Level 137 mEq/L (136-145); Troponin High Sensitivity 3.6 pg/mL (<58.9)
--- NOTE | 2023-11-17 21:39 | RAD REPORT ---
[facility] 8:43 pm CLINICAL HISTORY: CHEST PAIN COMPARISON: Chest Single View dated 05/15/2023; Chest Single View dated 05/02/2023; Chest Single View dated 04/20/2023; Chest Single View dated 03/15/2023 TECHNIQUE: Portable AP view of the chest. FINDINGS: The lungs are clear. No pneumothorax or effusion. The cardiomediastinal contours are unre markable. IMPRESSION: No acute cardiopulmonary process.
[2023-11-17 21:42] LABS: Bilirubin Direct < 0.2 mg/dL (0-0.2); Bilirubin Total < 0.2 mg/dL (0.2-1.0)
--- NOTE | 2023-11-18 00:32 | EDPHYS ---
Physician Documentation [facility] Name: Charity Hanks Age: 43 yrs Sex: Female : 1980 Arrival Date: 11/17/2023 Time: 20:08 Bed 2 Private MD: ED Physician Marty Singh HPI: 11/16 20:13 This 43 yrs old Female presents to ER via Unassigned with complaints of Chest sp4 Pain, Dizziness. 22:10 43-year-old female presents with complaint of acute onset chest pain starting at 12:30 sp4 PM today. Patient states that she is anxious and takes a Xanax 2 mg p.o. twice daily also hydroxyzine as needed Abilify 10 mg p.o. daily and Belsomra 10 mg p.o. bedtime. Patient denied history of prior stents states she is not on any blood thinners at this time. . Historical: - Allergies: 20:28 No Known Allergies; jb4 - PMHx: 20:28 Anxiety; depressive disorder; Myocardial infarction; PTSD; jb4 - PSHx: 20:28 Cholecystectomy; Tonsillectomy; jb4 - Immunization history:: Adult Immunizations up to date. - Infectious Disease History:: Denies. - Social history:: Smoking status: Patient reports the use of cigarette tobacco products, smokes one-half pack cigarettes per day. - Family history:: not pertinent. ROS: 22:10 Constitutional: Negative for fever, chills, and weight loss, positive chest pressure sp4 and anxiety 22:10 All other systems are negative, Exam: 20:56 Constitutional: This is a well developed, well nourished patient who is awake, alert, sp4 and in no acute distress. Head/Face: Normocephalic, atraumatic. Eyes: Pupils equal round and reactive to light, extra-ocular motions intact. Lids and lashes normal. Conjunctiva and sclera are not injected. Cornea within normal limits. Periorbital areas with no swelling, redness, or edema. ENT: Nares patent. No nasal discharge, no septal abnormalities noted. Tympanic membranes are normal and external auditory canals are clear. Oropharynx with no redness, swelling, or masses, exudates, or evidence of obstruction, uvula midline. Mucous membranes moist. Neck: Trachea midline, no thyromegaly or masses palpated, and no cervical lymphadenopathy. Supple, full range of motion without nuchal rigidity, or vertebral point tenderness. Chest/axilla: Normal chest wall appearance and motion. Nontender with no deformity. No lesions are appreciated. Cardiovascular: Regular rate and rhythm with a normal S1 and S2. No gallops, murmurs, or rubs. Normal PMI, no JVD. No pulse deficits. Respiratory: Lungs have equal breath sounds bilaterally, clear to auscultation and percussion. No rales, rhonchi or wheezes noted. No increased work of breathing, no retractions or nasal flaring. Abdomen/GI: Soft, with normal bowel sounds. No distension or tympany. No guarding or rebound. No evidence of tenderness throughout. Back: No spinal tenderness. No costovertebral tenderness. Skin: Warm, dry with normal turgor. Normal color with no rashes, no lesions, and no evidence of cellulitis. MS/ Extremity: Pulses equal, no cyanosis. Neurovascular intact. Full, normal range of motion. Neuro: Awake and alert, GCS 15, oriented to person, place, time, and situation. Cranial nerves II-XII grossly intact. Motor strength 5/5 in all extremities. Sensory grossly intact. Psych: Awake, alert, with orientation to person, place and time. Behavior, mood, and affect are within normal limits 20:56 ECG was reviewed by the Attending Physician. EKG time 2020 sinus tachycardia at the rate of 112, left axis deviation otherwise normal. Vital Signs: 20:25 BP 134 / 116; Pulse 116; Resp 18; Temp 97.1(TE); Pulse Ox 99% on R/A; Weight 99.79 kg [facility] (R); Height 5 ft. 2 in. (R); Pain 9/10; 20:45 BP 130 / 81; Pulse 109; Resp 18; Pulse Ox 98% on R/A; cm10 11/17 00:47 BP 124 / 81; Pulse 82; Resp 18; Temp 98; Pulse Ox 99% on R/A; rv 11/16 20:25 Body Mass Index 40.24 (99.79 kg, 157.48 cm) [facility] 11/16 20:25 Pain Scale: Adult [facility] [place] Coma Score: 11/16 22:10 Eye Response: spontaneous(4). Motor Response: obeys commands(6). Verbal Response: sp4 oriented(5). Total: 15. 11/17 00:47 Eye Response: spontaneous(4). Motor Response: obeys commands(6). Verbal Response: rv oriented(5). Total: 15. MDM: 11/16 20:15 Patient medically screened. [facility] 22:10 Differential diagnosis: acute myocardial infarction, acute pericarditis, anxiety, sp4 coronary artery disease chest wall pain, congestive heart failure costochondritis. HEART Score: History: Slightly Suspicious (0), ECG: Non specific repolarization disturbance / LBTB / PM (1), Age: < or = 45 years (0), Risk Factors: No Risk Factors Known (0), Troponin: < or = 1 x Normal Limit (0), Total Score = 1. Data reviewed: vital signs, nurses notes, lab test result(s), EKG, radiologic studies, plain films. 22:14 ED course: EXAM DESCRIPTION: [facility] Single View11/17/2023 8:43 pm CLINICAL HISTORY: sp4 CHEST PAIN COMPARISON: Chest Single View dated 05/15/2023; Chest Single View dated 05/02/2023; Chest Single View dated 04/20/2023; Chest Single View dated 03/15/2023 TECHNIQUE: Portable AP view of the chest. FINDINGS: The lungs are clear. No pneumothorax or effusion. The cardiomediastinal contours are unremarkable. IMPRESSION: No acute cardiopulmonary process. . 11/16 20:13 Order name: Basic Metabolic Panel; Complete Time: 21:50 [facility] 11/16 20:13 Order name: CBC with Diff; Complete Time: 21:15 [facility] 11/16 20:13 Order name: LFT's; Complete Time: 21:50 [facility] 11/16 20:13 Order name: Magnesium; Complete Time: 21:50 [facility] 11/16 20:13 Order name: NT PRO-BNP; Complete Time: 21:50 [facility] 11/16 20:13 Order name: PT-INR; Complete Time: 21:50 [facility] 11/16 20:13 Order name: Troponin HS; Complete Time: 21:50 [facility] 11/16 21:50 Order name: Troponin High Sensitivity: Collect at 23:30; Complete Time: 00:18 [facility] 11/16 20:13 Order name: XRAY Chest (1 view); Complete Time: 21:50 sp4 11/16 20:13 Order name: Cardiac monitoring; Complete Time: 20:24 sp4 11/16 20:13 Order name: EKG - Nurse/Tech; Complete Time: 20:24 sp4 11/16 20:13 Order name: IV Saline Lock; Complete Time: 20:55 sp4 11/16 20:13 Order name: Labs collected and sent; Complete Time: 20:55 sp4 11/16 20:13 Order name: O2 Per Protocol; Complete Time: 20:24 sp4 11/16 20:13 Order name: O2 Sat Monitoring; Complete Time: 20:24 sp4 EC:56 Rate is 112 beats/min. Rhythm is regular, Sinus tachycardia. Left axis deviation noted. sp4 FL interval is normal. QRS interval is normal. QT interval is normal. No Q waves. T waves are Normal. No ST changes noted. Clinical impression: No evidence of ischemia. Interpreted by me. Reviewed by me. Administered Medications: 21:26 Drug: morphine IVP or IV 2 mg IVP once over 4 mins Route: IVP; Infused Over: 4 mins; cm10 Site: right forearm; 11/17 00:47 Follow up: Response: No adverse reaction rv 11/16 21:26 Drug: Aspirin PO Chewable Tablet 324 mg PO once; 81 mg tablets x 4 Route: PO; cm10 11/17 00:47 Follow up: Response: No adverse reaction rv 11/16 21:26 Drug: NS 0.9% IV 1000 ml IV at 1 bolus Per protocol; 1000 mL bolus Route: IV; Rate: 1 cm10 bolus; Site: right forearm; 11/17 00:47 Follow up: IV Status: Completed infusion; IV Intake: 1000ml rv 11/16 21:27 Drug: Ativan IVP 2 mg IVP once Route: IVP; Site: right forearm; cm10 11/17 00:47 Follow up: Response: No adverse reaction rv Disposition Summary: 11/18/23 00:31 Discharge Ordered Notes: Location: Home sp4 Problem: new sp4 Symptoms: have improved sp4 Condition: Stable sp4 Diagnosis - Chest pain, unspecified sp4 Followup: sp4 - With: Private Physician - When: 7 - 10 days - Reason: Recheck today's complaints Discharge Instructions: - Discharge Summary Sheet sp4 - Nonspecific Chest Pain, Adult sp4 Forms: - Patient Portal Instructions sp4 Signatures: Dispatcher [employer] EDMS Herminio Sauer, RN RN jb4 Marty Singh MD MD sp4 Keiry Heard RN RN cm10 Calderon Meyers RN rv Corrections: (The following items were deleted from the chart) 11/16 20:14 20:14 BASIC METABOLIC PANEL+C.LAB.BRZ ordered. EDMS EDMS 20:14 20:14 CBC+H.LAB.BRZ ordered. EDMS EDMS 20:14 20:14 HEPATIC FUNCTION+C.LAB.BRZ ordered. EDMS EDMS 20:14 20:14 MAGNESIUM+C.LAB.BRZ ordered. EDMS EDMS 20:14 20:14 PROBNP+C.LAB.BRZ ordered. EDMS EDMS 20:14 20:14 PROTIME (+INR)+COAG.LAB.BRZ ordered. EDMS EDMS 20:14 20:14 Troponin High Sensitivity+C.LAB.BRZ ordered. EDMS EDMS 20:14 20:14 Chest Single View+RAD.RAD.BRZ ordered. EDMS EDMS
--- NOTE | 2023-11-18 00:32 | ER ---
Nurse's Notes [facility] Name: Charity Hanks Age: 43 yrs Sex: Female : 1980 Arrival Date: 11/17/2023 Time: 20:08 Bed 2 Private MD: Diagnosis: Chest pain, unspecified Presentation: 11/16 20:25 Chief complaint: Patient states: I am having chest pain that starts in the middle of my jb4 chest and radiates to my left arm. It started between 12 and 1230 today. It feels like I have an elephant sitting on my chest and the pain is a 9/10. Coronavirus screen: At this time, the client does not indicate any symptoms associated with coronavirus-19. Ebola Screen: No symptoms or risks identified at this time. Initial Sepsis Screen: Does the patient meet any 2 criteria? No. Patient's initial sepsis screen is negative. Does the patient have a suspected source of infection? No. Patient's initial sepsis screen is negative. Risk Assessment: Do you want to hurt yourself or someone else? Patient reports no desire to harm self or others. Onset of symptoms was November 17, 2023. Transition of care: patient was not received from another setting of care. 20:25 Method Of Arrival: Ambulatory jb4 20:25 Acuity: CARLOS 2 jb4 Historical: - Allergies: 20:28 No Known Allergies; jb4 - PMHx: 20:28 Anxiety; depressive disorder; Myocardial infarction; PTSD; jb4 - PSHx: 20:28 Cholecystectomy; Tonsillectomy; jb4 - Immunization history:: Adult Immunizations up to date. - Infectious Disease History:: Denies. - Social history:: Smoking status: Patient reports the use of cigarette tobacco products, smokes one-half pack cigarettes per day. - Family history:: not pertinent. Screenin:47 [facility] ED Fall Risk Assessment (Adult) History of falling in the last 3 months, cm10 including since admission No falls in past 3 months (0 pts) Confusion or Disorientation No (0 pts) Intoxicated or Sedated No (0 pts) Impaired Gait No (0 pts) Mobility Assist Device Used No (0 pt) Altered Elimination No (0 pt) Score/Fall Risk Level 0 - 2 = Low Risk Oriented to surroundings, Maintained a safe environment, Hourly rounding (assess needs \T\ fall precautionary measures) done. Abuse screen: Denies threats or abuse. Denies injuries from another. Nutritional screening: No deficits noted. Tuberculosis screening: No symptoms or risk factors identified. Assessment: 20:30 General: Appears in no apparent distress. comfortable, Behavior is calm, cooperative. cm10 Pain: Complains of pain in chest Pain radiates to left arm Pain currently is 9 out of 10 on a pain scale. Quality of pain is described as an elephant sitting on my chest Pain began gradually, Is continuous, Also complains of nausea, shortness of breath. Neuro: No deficits noted. Level of Consciousness is awake, alert, obeys commands, Oriented to person, place, time, situation. Neuro: Reports dizziness. Cardiovascular: No deficits noted. Heart tones present Patient's skin is warm and dry. Chest pain is described as mild, quality is heaviness, pressure, is located in left radiates to left back jaw(s) began This morning episodes are continuous. Respiratory: No deficits noted. Airway is patent Respiratory effort is even, unlabored, Respiratory pattern is regular, symmetrical, Breath sounds are clear bilaterally. GI: Reports nausea. 11/17 00:47 Reassessment: Patient and/or family updated on plan of care and expected duration. Pain rv level reassessed. Patient is alert, oriented x 3, equal unlabored respirations, skin warm/dry/pink. Vital Signs: 11/16 20:25 BP 134 / 116; Pulse 116; Resp 18; Temp 97.1(TE); Pulse Ox 99% on R/A; Weight 99.79 kg jb4 (R); Height 5 ft. 2 in. (R); Pain 9/10; 20:45 BP 130 / 81; Pulse 109; Resp 18; Pulse Ox 98% on R/A; cm10 11/17 00:47 BP 124 / 81; Pulse 82; Resp 18; Temp 98; Pulse Ox 99% on R/A; rv 11/16 20:25 Body Mass Index 40.24 (99.79 kg, 157.48 cm) jb4 11/16 20:25 Pain Scale: Adult jb4 Radha Coma Score: 11/16 22:10 Eye Response: spontaneous(4). Motor Response: obeys commands(6). Verbal Response: sp4 oriented(5). Total: 15. 11/17 00:47 Eye Response: spontaneous(4). Motor Response: obeys commands(6). Verbal Response: rv oriented(5). Total: 15. ED Course: 11/16 20:10 Patient arrived in ED. im 20:13 Marty Singh MD is Attending Physician. sp4 20:28 Triage completed. jb4 20:28 Arm band placed on right wrist. jb4 20:29 EKG completed in triage. Results shown to MD. jb4 20:30 Accessed peripheral vein via ultrasound, utilizing dynamic ultrasound technique Blood cm10 collected. Clean \T\ dry. Dressing intact. Good blood return. Flushes easily. 20G right forearm. O2 via Room air. 20:43 Keiry Heard, JAMES is Primary Nurse. cm10 20:44 XRAY Chest (1 view) In Process Unspecified. EDMS 20:47 Patient has correct armband on for positive identification. Placed in gown. Bed in low cm10 position. Call light in reach. Side rails up X 1. Provided Education on: ER process and procedures. Client placed on continuous cardiac and pulse oximetry monitoring. NIBP monitoring applied. head knitting machine fixer on. 11/17 00:48 No provider procedures requiring assistance completed. IV discontinued, intact, rv bleeding controlled, No redness/swelling at site. Pressure dressing applied. Administered Medications: 11/16 20: Drug: morphine IVP or IV 2 mg IVP once over 4 mins Route: IVP; Infused Over: 4 mins; cm10 Site: right forearm; 11/17 00:47 Follow up: Response: No adverse reaction rv 11/16 20:26 Drug: Aspirin PO Chewable Tablet 324 mg PO once; 81 mg tablets x 4 Route: PO; cm10 11/17 00:47 Follow up: Response: No adverse reaction rv 11/16 20: Drug: NS 0.9% IV 1000 ml IV at 1 bolus Per protocol; 1000 mL bolus Route: IV; Rate: 1 cm10 bolus; Site: right forearm; 11/17 00:47 Follow up: IV Status: Completed infusion; IV Intake: 1000ml rv 11/16 21:27 Drug: Ativan IVP 2 mg IVP once Route: IVP; Site: right forearm; cm10 11/17 00:47 Follow up: Response: No adverse reaction rv Medication: 11/16 20:47 VIS not applicable for this client. cm10 Intake: 11/17 00:47 IV: 1000ml; Total: 1000ml. rv Outcome: 00:31 Discharge ordered by . sp4 00:48 Discharged to home ambulatory, rv 00:48 Condition: good 00:48 Discharge instructions given to patient, Instructed on discharge instructions, follow up and referral plans. Demonstrated understanding of instructions, follow-up care, 00:49 Patient left the ED. rv Signatures: Dispatcher [employer] EDMS Herminio Sauer RN RN jb4 Calderon Meyers RN RN rv Marty Singh MD MD sp4 Obdulia Draper Clarissa, RN RN cm10
[2023-11-18 01:11] VITALS: BP 124/81; TEMP 98; O2SAT 99
--- NOTE | 2023-11-18 13:18 | EKG ---
Test Date: 2023-11-17 Test Time: 20:21:11 Information Security Director: CROW MEASUREMENT RESULTS: Intervals: Rate: 112 GA: 150 QRSD: 76 QT: 330 QTc: 450 [place]: P: 42 GA: 150 QRS: -58 T: 37 INTERPRETIVE STATEMENTS: Sinus tachycardia Biatrial enlargement Left axis deviation Inferior infarct, age undetermined Anterior infarct, age undetermined Abnormal ECG Compared to ECG 06/06/2023 21:50:54 Atrial abnormality now present Left-axis deviation now present Myocardial infarct finding now present Sinus rhythm no longer present Electronically Signed On 11-18-23 13:16:53 CDT by Neil Arthur
== END 2023-11-18 00:49 | disposition home or self-care (01) ==
LOC: ER 20:08
DX: R07.9 Chest pain, unspecified (principal); F41.9 Anxiety disorder, unspecified; I25.2 Old myocardial infarction; F17.210 Nicotine dependence, cigarettes, uncomplicated
CPT/HCPCS: 96361; 93005; 85025; 80048; 36415; 83735; 85610; 80076; 84484 ×2; 83880; 71045; 96375; 96374; 99285; J2270; J7030

== ENCOUNTER 2023-12-15 20:27 | Observation (INO) | payer OTHER ==
--- OUTSIDE RECORDS SUMMARY | 2023-12-15 20:41 | XMS REPORT | Continuity of Care Document ---
Author Name Unknown Address [address] [facility] [address] [place] [address] [facility] thconnect Address [address] [facility] [place] [address] Support Name Relationship Address Phone RACHEL CASH Father Unknown Unavailable PHYSICIAN, NO Primary Care Physician Unknown Unav ailable MD MORA POLLOCK A Emergency Provider [address] [place] [address] JAN COX natural parent [id number] [address] MD SHERIDAN MCMANUS Emergency Provider [facility], [place] [address] CHARITY ROCA Guarantor [address] [place] [address] MD RIDDHI MYLES [place] [address] MD AN IRIZARRY Emergency Provider [facility], [place] [address] MD CARLOS SOLANO A Primary Care Physician [address] [facility] [address] [place] [address] OTHER, ENTER NAME IN NOTES Primary Care Physician Unknown Unavailable MD Arelis Navarro Emergency Provider [address] [place] [address] MD SHAN BUSCH Attending Provider [address] [place] [address] PIYUSH JUAREZ parent [address] [place] [address] 1 Personal Relationship Unknown Unavai lable Unavailable Personal Relationship Unknown Unavai lable Leyda Villa Mother Unknown Unavailable Rachel Cox Father [address] [place] [address] one else per patient, No Emergency Contact Unknown Unavailable Rachel Cox Father [address] [place] [address] RACHEL COX F 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 Name Role Phone JOANNE MONTES Primary Care Physician Unavailab FARTUN Bernal Attending Clinician Unavailable JOANNE MONTES Attending Clinician Unavailable LAB90 Attending Clinician Unavailable COSMO Attending Clinician Unavailable OLIVIA GARCIA Attending Clinician Unavailable Olivia Garcia MD Attending Clinician + [phone] SHERIDAN MCMANUS Attending Clinician UnavailROBERTO Melgar Attending Clinician Unavailable Roberto Richards MD Attending Clinician [phone] SHAN BUSCH Attending Clinician Unavailable RIDDHI MYLES Attending Clinician Unav ailable AN IRIZARRY Attending Clinician Unavailable NARAYAN NARVAEZ Attending Clinician Unavailable Narayan Narvaez DO Attending Clinician +[phone] Saleem EDWARD Attending Clinician Unavailable Saleem Perez Attending Clinician [phone] PADGETTBRITTNI S Attending Clinician Unavailable Dayron PATRICIA Brittni S Attending Clinician [phone] JESÚS MONTERO Attending Clinician Unavailable Leeanne Wise NP Attending Clinician + [phone] Jesús Montero MD Attending Clinician +[phone] FELTON Attending Clinician Unavailable MELIDA LONGORIA Attending Clinician Unavailable Melida Longoria MD Attending Clinician [phone] MCQUEEN, WIL R Attending Clinician Unavailable Mcqueen JEAN MARIESauln Belle Attending Clinician + [phone] DEE WANG Attending Clinician Unavaila angel Aritabailee STEEL DIE PRINTER, Rosapaulette Poncho Attending Clinician [phone] Doctor Unassigned, [place] Attending Clinician U navailable CEM CHOI Attending Clinician Unavailable Cem Choi MD Attending Clinician [phone] Shelley Rosas RN Attending Clinician [phone] Mo STEEL DIE PRINTER, Bal Attending Clinician + [phone] BAL HASSAN Attending Clinician Unavailable Ebrarosaura STEEL DIE PRINTER, Tremaine Attending Clinician + [phone] TREMAINE BECERRA Attending Clinician Unavailable LEEANNE WISE Attending Clinician Unavailable MORA POLLOCK Attending Clinician Unavailable Claudia MEDINAP, Best Odonnell Attending Clinician [phone] BEST TAYLOR Attending Clinician Unavailable Marbella Rizo RN Attending Clinician Unavailab bailee VILLANUEVA, Abdias Attending Clinician [phone] ABDIAS ROBERTSON Attending Clinician Unavailable Silver RAMIREZ, Kamryn Ayala Attending Clinician Unavail able Bushra Rios DO Attending Clinician [phone] BUSHRA RIOS Attending Clinician Unavailab SINCERE morocho BA Attending Clinician Unavailable GUMARO ALVAREZ Attending Clinician Unavailable NEIL WILKINS Attending Clinician UnavailLISA Parker Attending Clinician Unavailable JW SOLORZANO Attending Clinician Unavailab SANIA Glover Attending Clinician Unavailable GINA MARTIN Attending Clinician Unavailable YIN RIOS Attending Clinician Unavailab ALBERTO Cason Attending Clinician Unavailable ANTHONY SCHNEIDER Attending Clinician UnavailDARCIE Gentile Attending Clinician Unavailable ARLETTE ROBERT Attending Clinician Unavailable GISELA RIOS Attending Clinician Unavail able HUGO COFFMAN Attending Clinician Unavailable OLIVIA GARCIA Admitting Clinician Unavailable ROBERTO RICHARDS Admitting Clinician Unavailable SHAN BUSCH Admitting Clinician Unavailable RIDDHI MYLES Admitting Clinician Unav ailable NARAYAN NARVAEZ Admitting Clinician Unavailable JESÚS MONTERO Admitting Clinician Unavailable Jesús Montero MD Admitting Clinician [phone] FELTON Admitting Clinician Unavailable MELIDA LONGORIA Admitting Clinician Unavailable WIL MCQUEEN Admitting Clinician Unavailable DEE WANG Admitting Clinician UnavailCEM Womack Admitting Clinician Unavailable TREMAINE BECERRA Admitting Clinician Unavailable LEEANNE WISE Admitting Clinician Unavailable Saleem EDWARD Admitting Clinician Unavailable BEST TAYLOR Admitting Clinician Unavailable ABDIAS ROBERTSON Admitting Clinician Unavailable Payers Payer Name Policy Type Policy Number Effective Date Expirati on Date Source [employer] MP [employer] SIL[employer] 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 94 ON 9 [id number] 2023 00:00:00 [employer] 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 [id number] 2023 00:00:00 2023 00:00:00 [facility] BC[employer] BLUE ADVANTAGE O [id number] 2020 00:00:00 Problems Condition Name Condition Details Condition Category Status Onset Date Resolution Date Last Treatment Date Treating Clinician Comments Source Coronary artery disease Coronary artery disease Disease Active 12-12 00:00: 00 Kellee Buckley - Externa khris Status post arterial stent Status post arterial stent Disease Active 12-12 00:00: 00 Kellee Buckley - Externa l MICAH (generaliz ed anxiety disorder) MICAH (generaliz ed anxiety disorder) Disease Active 12-02 00:00: 00 Kellee Buckley - Externa khris Severe episode of recurrent major depressive disorder, 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, 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) Disease Active 12-02 00:00: 00 Kellee Buckley - Externa l PTSD (post-trau matic stress disorder) PTSD (post-trau matic stress disorder) Disease Active 12-02 00:00: 00 Kellee Buckley - Externa l Chest pain, unspecifie d type Chest pain, unspecifie d type Disease Active 8-11 00:00: 00 [facility] Elevated brain natriureti c peptide (BNP) level Elevated brain natriureti c peptide (BNP) level Disease Active 2020-07 0-02 00:00: 00 [facility] Cigarette smoker Cigarette smoker Disease Active 2020-07 0-02 00:00: 00 [facility] Family history of early CAD Family history of early CAD Disease Active 2020-07 0-02 00:00: 00 [facility] Primary hypertensi on Primary hypertensi on Disease Active 2020-07 0-02 00:00: 00 [facility] Elevated brain natriureti c peptide (BNP) level Elevated brain natriureti c peptide (BNP) level Disease Active 2020-07 0-02 00:00: 00 [facility] Snores Snores Disease Active 2020-07 0-02 00:00: 00 [facility] Chest pain Chest pain Disease Active 2020-07 0-01 00:00: 00 [facility] Morbid obesity with body mass index of 40.0-49.9 Morbid obesity with body mass index of 40.0-49.9 Disease Active 2020-07 0-01 00:00: 00 [facility] No known active problems No known active problems Disease [facility] Allergies, Adverse Reactions, Alerts Allergy Name Allergy Type Status Severity Reaction(s) Onset Date Inactive Date Treating Clinician Comments Source NO KNOWN ALLERGIE S Drug Class Active [facility] Social History Social Habit Start Date Stop Date Quantity Comments Source History of tobacco use 2018-10-27 00:00:00 Cigarette Smoker Kellee Buckley - External Gender identity [facility] Sexual orientation Saleem Buckley - External Alcoholic beverage intake 2023-12-13 00:00:00 2023-12-13 00:00:00 Current drinker of alcohol (finding) Kellee Buckley - External History of Social function 2023-10-28 00:00:00 2023-10-28 00:00:00 Kellee Buckley - External Alcohol Comment 2023-10-28 00:00:00 2023-10-28 00:00:00 rarely Kellee Buckley - External Cigarettes smoked current (pack per day) - Reported 2023-10-28 00:00:00 2023-10-28 00:00:00 Kellee Davies Cigarette pack-years 2023-10-28 00:00:00 2023-10-28 00:00:00 Kellee Buckley - External Tobacco use and exposure 2023-10-28 00:00:00 2023-10-28 00:00:00 Smokeless tobacco non-user Kellee Buckley - External Tobacco Comment 2023-02-15 00:00:00 2023-02-15 00:00:00 In the process of quitting. Now smokes 5 cigarettes/ day from 2 packs per day [facility] Exposure to SARS-CoV-2 (event) 2021-12-30 00:00:00 2022-01-09 16:34:00 Unable to assess [facility] Education - What is the highest level of school you have completed or the highest degree you have received? 2021-04-07 00:00:00 2021-04-07 00:00:00 High school graduate [facility] Sex assigned at 1980 00:00:00 1980 00:00:00 Kellee Davies Smoking Status Start Date Stop Date Source Smokes tobacco daily 2023-10-28 00:00:00 Kellee Davies Unknown if ever smoked [facility] Medications Ordered Medication Name Filled Medication Name Start Date Stop Date Current Medication? Ordering Clinician Indication Dosage Frequency Signature (SIG) Comments Components Source hydrOXYzine Pamoate 50 MG oral Capsule 12-12 09:19: 23 Yes [id number] 50mg Q.5D Take 1 capsule (50 mg total) by mouth 2 times daily as needed for anxiety. Kellee pinedo Lorazepam (ATIVAN) 0.5 MG oral Tablet tablet 12-12 00:00: 00 Yes [id number] .5mg Q.5D Take 1 tablet (0.5 mg total) by mouth 2 times daily as needed for anxiety. Kellee pinedo Aspirin Low Dose 81 MG oral Tablet Delayed Response 12-05 00:00: 00 Yes [id number] 81mg Take 1 tablet (81 mg total) by mouth daily. Kellee pinedo Atorvastati n Calcium 40 MG oral Tablet 12-05 00:00: 00 Yes [id number] 40mg Take 1 tablet (40 mg total) by mouth daily. Kellee pinedo Clopidogrel Bisulfate (PLAVIX) 75 MG oral Tablet 12-05 00:00: 00 Yes [id number] 75mg Take 1 tablet (75 mg total) by mouth daily. Kellee pinedo Mometasone Furo-Formot camelia Fum (Dulera) 200-5 MCG/ACT inhalation Aerosol 12-05 00:00: 00 Yes TWICE DAILY Kellee pinedo Ferrous Sulfate 325 (65 Fe) MG oral Tablet 12-04 00:00: 00 Yes [id number] 325mg Take 1 tablet (325 mg total) by mouth daily (with breakfast) . Kellee pinedo Vitamin D, Ergocalcife rol, 1.25 MG (46430 UT) oral Capsule 12-04 00:00: 00 Yes [id number] 61400A Take 1 capsule (50,000 units total) by mouth once a week. Kellee pinedo Mirtazapine 45 MG oral Tablet 12-02 10:49: 07 12-02 00:00 :00 No [id number] 45mg Take 1 tablet (45 mg total) by mouth nightly. Kellee pinedo hydrOXYzine Pamoate 50 MG oral Capsule 12-02 10:49: 04 Yes [id number] 50mg Q.5D Take 1 capsule (50 mg total) by mouth 2 times daily as needed for anxiety. Kellee pinedo Ascorbic Acid 500 MG oral Tablet 12-02 10:48: 55 12-02 00:00 :00 No 50mg Take 50 mg by mouth. Kellee pinedo Suvorexant (Belsomra) 20 MG oral Tablet 12-02 00:00: 00 Yes [id number] 1{tbl} Take 1 tablet by mouth nightly. Kellee pinedo Lorazepam 1 MG oral Tablet 12-02 00:00: 00 12-12 00:00 :00 No [id number] 1mg Q.5D Take 1 tablet (1 mg total) by mouth 2 times daily as needed for anxiety. Kellee pinedo Doxepin HCl 3 MG oral Tablet 11-27 00:00: 00 Yes [id number] 1{tbl} TAKE 1 TABLET BY MOUTH EVERY DAY AT NIGHT Kellee pinedo Aripiprazol e 5 MG oral Tablet 11-27 00:00: 00 Yes [id number] 5mg TAKE 1 TABLET (5 MG TOTAL) BY MOUTH DAILY. Kellee pinedo Mirtazapine 45 MG oral Tablet 10-28 13:20: 59 Yes [id number] 45mg Take 1 tablet (45 mg total) by mouth nightly. Kellee pinedo Ascorbic Acid 500 MG oral Tablet 10-28 13:20: 47 Yes 50mg Take 50 mg by mouth. Kellee pinedo hydrOXYzine Pamoate 50 MG oral Capsule 10-28 13:20: 47 10-28 00:00 :00 No [id number] 50mg Q.5D Take 1 capsule (50 mg total) by mouth every 4 to 6 hours as needed. Kellee pinedo Sertraline HCl 150 MG oral Capsule 10-28 13:20: 03 10-28 00:00 :00 No 150mg Take 150 mg by mouth daily. Kellee pinedo Doxepin HCl 3 MG oral Tablet 10-28 00:00: 00 Yes [id number] 1{tbl} Take 1 tablet by mouth nightly. Kellee pinedo Aripiprazol e 5 MG oral Tablet 10-28 00:00: 00 Yes [id number] 5mg Take 1 tablet (5 mg total) by mouth daily. Kellee pinedo Suvorexant 10 MG oral Tablet 10-28 00:00: 00 12-02 00:00 :00 No [id number] 1{tbl} Take 1 tablet by mouth nightly. Kellee Seybold - Externa l Sertraline HCl 50 MG oral Tablet 10-26 00:00: 00 Yes [id number] Kellee Seybold - Externa l HYDROcodone -acetaminop hen (NORCO) 10-325 mg tablet 1 tablet 10-10 06:15: 00 10-10 05:25 :00 No 1{tbl} 1 tablet, Oral, ONCE NOW, 1 dose, On Sat10/11/23 at 0115, ROSELYN [facility] iopamidol (ISOVUE 370-500 mL) injection 100 mL 10-10 05:00: 00 10-10 05:00 :00 No [id number] 100mL 100 mL, Intravenou s, ONCE, 1 dose, On Sat10/11/23 at 0000, Routine [facility] ketorolac (TORADOL) injection 30 mg 10-10 04:30: 00 10-10 03:29 :00 No 30mg 30 mg, Slow IV Push, ONCE, 1 dose, On Sat10/10/23 at 2330, Routine [facility] NaCl 0.9% (NS) IV infusion 1,000 mL 10-10 04:15: 00 10-10 05:18 :00 No 1000mL at 999 mL/hr, Intravenou s, ONCE, 1 dose, On Sat10/10/23 at 2315, Routine [facility] ondansetron (ZOFRAN (PF)) injection 4 mg 10-10 04:00: 00 10-10 03:54 :00 No 4mg 4 mg, Slow IV Push, ONCE, 1 dose, On Sat10/10/23 at 2300, [facility]LYN [facility] morpHINE (4 mg/mL) injection 4 mg 10-10 04:00: 00 10-10 03:54 :00 No 4mg 4 mg, Slow IV Push, ONCE, 1 dose, On Esperanza 10/10/23 at 2300, STAT [facility] traMADoL (ULTRAM) 50 mg tablet 10-10 00:00: 00 Yes [id number] 50mg Take 1 tablet by mouth every 6 (six) hours as needed for Pain (scale 7-10). Indication s: acute pain [facility] phenazopyri dine 200 mg tablet 10-10 00:00: 00 Yes [id number] 200mg Take 1 tablet by mouth in the morning and 1 tablet at noon and 1 tablet in the evening. [facility] ondansetron (ZOFRAN) 4 mg tablet 10-10 00:00: 00 Yes [id number] 4mg Take 1 tablet by mouth every 8 (eight) hours as needed for Nausea and Vomiting (N/V). [facility] ketorolac 10 mg tablet 10-10 00:00: 00 Yes [id number] 10mg Take 1 tablet by mouth every 6 (six) hours as needed for Pain (scale 7-10). [facility] Sertraline HCl 100 MG oral Tablet 10-09 00:00: 00 Yes [id number] 100mg Take 1 tablet (100 mg total) by mouth every morning. Kellee pinedo acetaminoph en (TYLENOL) tablet 975 mg 2022-07 04:15: 00 07-02 03:11 :00 No 975mg 975 mg, Oral, ONCE, 1 dose, On Sat07/01/23 at 2215, ROSELYN [facility] dicyclomine (BENTYL) tablet 20 mg 2022-07 03:15: 00 07-02 03:11 :00 No 20mg 20 mg, Oral, ONCE, 1 dose, On Sat07/01/23 at 2115, ROSELYN [facility] ketorolac (TORADOL) injection 30 mg 2022-07 03:15: 00 07-02 02:32 :00 No 30mg 30 mg, Slow IV Push, ONCE, 1 dose, On Sat07/01/23 at 2115, Routine [facility] ondansetron (ZOFRAN (PF)) injection 4 mg 2022-07 03:00: 00 07-02 02:03 :00 No 4mg 4 mg, Slow IV Push, ONCE, 1 dose, On Sat07/01/23 at 2100, [facility] NaCl 0.9% (NS) bolus infusion 1,000 mL 2022-07 03:00: 00 07-02 04:10 :00 No 1000mL at 999 mL/hr, 1,000 mL, IV Infusion, ONCE, 1 dose, On Sat07/01/23 at 2100, STAT [facility] dicyclomine 20 mg tablet 2022-07 00:00: 00 Yes [id number] 20mg Take 1 tablet by mouth 4 (four) times daily. [facility] ondansetron 4 mg disintegrat ing tablet 2022-07 00:00: 00 Yes [id number] 4mg Take 1 tablet by mouth every 4 (four) hours as needed for Nausea and Vomiting (N/V). [facility] Alprazolam 1 MG oral Tablet 2022-07 00:00: 00 12-12 00:00 :00 No [id number] 2mg Take 2 tablets (2 mg total) by mouth 2 times daily. Kellee pinedo Pantoprazol e Sodium 20 MG oral Tablet Delayed Response 2022-07 00:00: 00 12-02 00:00 :00 No Take by mouth. Kellee pinedo ketorolac (TORADOL) injection 15 mg 2022-07 01:00: 00 05-10 00:09 :00 No 15mg 15 mg, Slow IV Push, ONCE, 1 dose, On Sat05/09/23 at 2000, [facility] proCHLORper azine (COMPAZINE) injection 5 mg 2022-07 23:30: 00 05-09 22:48 :00 No 5mg 5 mg, Slow IV Push, ONCE, 1 dose, On Sat05/09/23 at 1830, [facility] diphenhydrA MINE (BENADRYL) injection 25 mg 2022-07 22:45: 00 05-09 22:48 :00 No 25mg 25 mg, Slow IV Push, ONCE, 1 dose, On Sat05/09/23 at 1745, STAT [facility] HYDROcodone -acetaminop hen (NORCO) 10-325 mg tablet 1 tablet 2022-07 02:00: 00 05-01 01:04 :00 No 1{tbl} 1 tablet, Oral, ONCE, 1 dose, On Sat04/30/23 at 2100, Routine [facility] iopamidol (ISOVUE 370-500 mL) injection 100 mL 2022-07 00:45: 00 05-01 00:45 :00 No [id number] 100mL 100 mL, Intravenou s, ONCE, 1 dose, On Sat04/30/23 at 1945, Routine [facility] NaCl 0.9% (NS) bolus infusion 1,000 mL 2022-07 00:00: 00 05-01 00:45 :00 No 1000mL at 999 mL/hr, 1,000 mL, IV Piggyback, ONCE, 1 dose, On Sat04/30/23 at 1900, STAT [facility] proCHLORper azine (COMPAZINE) injection 5 mg 2022-07 23:45: 00 04-30 23:09 :00 No 5mg 5 mg, Slow IV Push, ONCE, 1 dose, On Sat04/30/23 at 1845, ROSELYN [facility] diphenhydrA MINE (BENADRYL) injection 25 mg 2022-07 23:00: 00 04-30 23:09 :00 No 25mg 25 mg, Slow IV Push, ONCE, 1 dose, On Sat04/30/23 at 1800, STAT [facility] dicyclomine 20 mg tablet 2022-07 00:00: 00 07-01 00:00 :00 No [id number] 20mg Take 1 tablet by mouth 4 (four) times daily. [facility] acetaminoph en (TYLENOL) tablet 1,000 mg 2022-07 02:45: 00 04-17 02:43 :00 No 1000mg 1,000 mg, Oral, ONCE, 1 dose, On Tu04/16/23 at 2145[facility] (ZOFRAN (PF)) [facility] 4 mg 2022-07 0-03 03:15: 00 04-09 02:13 :00 No 4mg 4 mg, Slow IV Push, ONCE, 1 dose, On Sat04/08/23 at 2215, [facility] dicycl[facility] (BENTYL) tablet 20 mg 2022-07 0- 03:15: 00 04-09 02:16 :00 No 20mg 20 mg, Oral, ONCE, 1 dose, On Sat04/08/23 at 2215, Routine [facility] ondansetron (ZOFRAN (PF)) injection 4 mg 2022-07 0 23:45: 00 04-08 23:16 :00 No 4mg 4 mg, Slow IV Push, ONCE, 1 dose, On Sat04/08/23 at 1845, [facility] morpHINE (2 mg/mL) injection 4 mg 2022-07 23:45: 00 04-08 23:45 :00 No 4mg 4 mg, Slow IV Push, ONCE, 1 dose, On Sat04/08/23 at 1845, STAT [facility] ondansetron 4 mg disintegrat ing tablet 2022-07 002 00:00: 00 07-01 00:00 :00 No [id number] 4mg Take 1 tablet by mouth every 8 (eight) hours as needed for Nausea and Vomiting (N/V). [facility] dicyclomine 20 mg tablet 2022-07 0-02 00:00: 00 04-30 00:00 :00 No [id number] 20mg Take 1 tablet by mouth 4 (four) times daily. [facility] acetaminoph en (TYLENOL) tablet 1,000 mg 903 04:30: 00 03-10 04:29 :00 No 1000mg 1,000 mg, Oral, ONCE, 1 dose, On Sat03/09/23 at 2330, [facility] iopamidol (ISOVUE 370-500 mL) injection 85 mL 03-10 04:30: 00 03-10 04:30 :00 No [id number] 85mL 85 mL, Intravenou s, ONCE, 1 dose, On 03/09/23 at 2330, Routine [facility] FENTanyl PF (SUBLIMAZE (PF)) injection 75 mcg 03-10 04:00: 00 03-10 02:58 :00 No 75ug 75 mcg, Slow IV Push, ONCE, 1 dose, On 03/09/23 at 2300, STAT [facility] NaCl 0.9% (NS) IV infusion 1,000 mL 03-10 03:00: 00 Yes 1000mL at 20 mL/hr, IV Infusion, CONTINUOUS , Starting on 03/09/23 at 2200, Until Discontinu ed, Routine [facility] ondansetron (ZOFRAN (PF)) injection 4 mg 03-10 02:00: 00 03-10 02:01 :00 No 4mg 4 mg, Slow IV Push, ONCE, 1 dose, On 03/09/23 at 2100, ROSELYN [facility] morpHINE (4 mg/mL) injection 4 mg 03-10 02:00: 00 03-10 02:01 :00 No 4mg 4 mg, Slow IV Push, ONCE, 1 dose, On 03/09/23 at 2100, STAT [facility] polyethylen e glycol 3350 (MIRALAX) 17 gram powder 03-09 00:00: 00 Yes [id number] 1{packe t} Take 1 Packet by mouth once daily as needed for Constipati on. [facility] Simethicone 125 mg 03-09 00:00: 00 Yes [id number] 125mg Take 1 capsule by mouth after meals and at bedtime as needed for Gas. [facility] iopamidol (ISOVUE 370-500 mL) injection 100 mL 03-02 06:15: 00 03-02 06:15 :00 No [id number] 100mL 100 mL, Intravenou s, ONCE, 1 dose, On 03/02/23 at 0115, Routine [facility] NaCl 0.9% (NS) IV infusion 1,000 mL 03-02 05:15: 00 Yes 1000mL at 999 mL/hr, Intravenou s, CONTINUOUS , Starting on 03/02/23 at 0015, Until Discontinu ed, Routine [facility] ketorolac (TORADOL) injection 30 mg 03-02 05:15: 00 03-02 04:20 :00 No 30mg 30 mg, Slow IV Push, ONCE, 1 dose, On 03/02/23 at 0015, Routine [facility] ondansetron (ZOFRAN (PF)) injection 4 mg 03-02 05:00: 00 03-02 05:24 :00 No 4mg 4 mg, Slow IV Push, ONCE, 1 dose, On 03/02/23 at 0000, RO[facility]LYN [facility] morpHINE (4 mg/mL) injection 4 mg 03-02 05:00: 00 03-02 05:24 :00 No 4mg 4 mg, Slow IV Push, ONCE, 1 dose, On 03/02/23 at 0000, STAT [facility] ondansetron (ZOFRAN (PF)) injection 4 mg 03-02 04:15: 00 03-02 04:21 :00 No 4mg 4 mg, Slow IV Push, ONCE, 1 dose, On Sat03/01/23 at 2315, ROSELYN [facility] Ondansetron HCl 4 MG oral Tablet 03-02 00:00: 00 Yes [id number] 4mg [id number] 3D Take 1 tablet (4 mg total) by mouth every 8 hours as needed. Kellee pinedo dicyclomine 20 mg tablet 03-02 00:00: 00 04-30 00:00 :00 No [id number] 20mg Take 1 tablet by mouth every 6 (six) hours as needed for Abdominal pain. [facility] metoclopram tracy HCl (REGLAN) injection 10 mg 02-18 06:45: 00 02-18 06:43 :00 No 10mg 10 mg, Slow IV Push, ONCE, 1 dose, On Sat02/18/23 at 0145, ROSELYN [facility] morpHINE (4 mg/mL) injection 4 mg 02-18 05:30: 00 02-18 05:28 :00 No 4mg 4 mg, Slow IV Push, ONCE, 1 dose, On Sat02/18/23 at 0030, STAT [facility] ondansetron (ZOFRAN (PF)) injection 4 mg 02-18 05:30: 00 02-18 05:28 :00 No 4mg 4 mg, Slow IV Push, ONCE, 1 dose, On Sat02/18/23 at 0030, ROSELYN [facility] NaCl 0.9% (NS) bolus infusion 1,000 mL 02-18 05:30: 00 02-18 05:15 :00 No 1000mL at 999 mL/hr, 1,000 mL, IV Infusion, ONCE, 1 dose, On Sat02/18/23 at 0030, STAT [facility] proMETHazin e (PHENERGAN) 25 mg in NaCl 0.9% (NS) 50 mL IV piggyback 02-18 04:30: 00 02-18 04:28 :00 No 25mg 25 mg, IV Piggyback, ONCE, 1 dose, On Sat02/17/23 at 2330, RO[facility]LYN [facility] proMETHazin e 25 mg tablet 02-18 00:00: 00 Yes [id number] 25mg Take 1 tablet by mouth every 6 (six) hours as needed for Nausea and Vomiting (N/V). [facility] escitalopra m oxalate (LEXAPRO) 5 mg tablet 02-17 16:23: 24 Yes 10mg Take 2 tablets by mouth at bedtime. [facility] topiramate (TOPAMAX) 200 mg tablet 02-17 16:23: 24 Yes 200mg Take 1 tablet by mouth every evening. [facility] bupropion HCl (WELLBUTRIN ORAL) 02-17 16:23: 24 Yes 150mg Take 150 mg by mouth every morning. [facility] OLANZapine (ZYPREXA) 15 mg tablet 02-17 16:23: 24 Yes 15mg Take 1 tablet by mouth every evening. [facility] [facility] ALPRAZOLAM ORAL 02-17 16:23: 24 Yes 2mg Take 2 mg by mouth in the morning and 2 mg in the evening. [facility] melatonin 10 mg Tab 02-17 16:23: 24 Yes 1{tbl} Take 1 tablet by mouth at bedtime. [facility] trazodone HCl (TRAZODONE ORAL) 02-17 16:23: 24 Yes 400mg Take 400 mg by mouth at bedtime. [facility] lactated ringers IV infusion 1,000 mL 02-17 02:15: 00 02-17 22:14 :00 No 1000mL at 100 mL/hr, 1,000 mL, IV Infusion, CONTINUOUS , Starting on 02/16/23 at 2115, Until 02/17/23 at 1714, Routine [facility] traZODone (DESYREL) tablet 400 mg 02-17 02:00: 00 Yes 400mg 400 mg, Oral, QHS, First dose on 02/16/23 at 2100, Until Discontinu ed [facility] melatonin (MELATIN) tablet 9 mg 02-17 02:00: 00 Yes 9mg 9 mg, Oral, QHS, First dose on 02/16/23 at 2100, Until Discontinu ed [facility] morpHINE (2 mg/mL) injection 2 mg 02-17 01:07: 50 03-01 01:06 :50 No 2mg 2 mg, Slow IV Push, Q4HPRN, Starting on 02/16/23 at 2006, Until [place] 02/28/23 at 2005, Routine, Pain (scale 7-10) [facility] OLANZapine (ZyPREXA) tablet 15 mg 02-16 22:00: 00 Yes 15mg 15 mg, Oral, QPM, First dose on 02/16/23 at 1700, Until Discontinu ed, Routine [facility] buPROPion XL (WELLBUTRIN XL) tablet 150 mg 02-16 14:00: 00 Yes 150mg 150 mg, Oral, DAILY, First dose on 02/16/23 at 0900, Until Discontinu ed [facility] enoxaparin (LOVENOX) injection 40 mg 02-16 14:00: 00 Yes 40mg 40 mg, Subcutaneo us, DAILY, First dose on 02/16/23 at 0900, Until Discontinu ed, Routine [facility] methocarbam oL (ROBAXIN) tablet 500 mg 02-16 06:04: 59 Yes 500mg 500 mg, Oral, Q6HPRN, Starting on 02/16/23 at 0104, Until Discontinu ed, Routine, Muscle Spasms [facility] ALPRAZolam (XANAX) tablet 2 mg 02-16 06:03: 54 Yes 2mg 2 mg, Oral, TIDPRN, Starting on 02/16/23 at 0103, Until Discontinu ed, Anxiety [facility] lactated ringers IV infusion 1,000 mL 02-16 03:15: 00 02-16 23:14 :00 No 1000mL at 100 mL/hr, 1,000 mL, IV Infusion, CONTINUOUS , Starting on Sat02/15/23 at 2215, Until 02/16/23 at 1814, Routine [facility] morpHINE (2 mg/mL) injection 2 mg 02-16 03:07: 02 02-17 01:08 :14 No 2mg 2 mg, Slow IV Push, Q4HPRN, Starting on Sat02/15/23 at 2207, Until 02/16/23 at 2008, Routine, Pain (scale 7-10) [facility] traMADoL (ULTRAM) tablet 50 mg 02-16 03:06: 59 02-18 03:05 :59 No 50mg 50 mg, Oral, Q8HPRN, Starting on Sat02/15/23 at 2206, Until Sat02/17/23 at 2205, Routine, Pain (scale 4-6) [facility] acetaminoph en (TYLENOL) tablet 1,000 mg 02-16 03:06: 50 Yes 1000mg 1,000 mg, Oral, Q6HPRN, Starting on Sat02/15/23 at 2206, Until Discontinu ed, Routine, Pain (scale 1-3), Temp > 38 C [facility] ALPRAZolam (XANAX) 1 mg tablet 02-16 01:09: 19 02-15 00:00 :00 No 1mg Take 1 tablet by mouth in the morning and 1 tablet in the evening. [facility] iopamidol (ISOVUE 370-500 mL) injection 80 mL 02-16 00:30: 00 02-16 00:30 :00 No [id number] 80mL 80 mL, Intravenou s, ONCE, 1 dose, On Sat02/15/23 at 1930, Routine [facility] lactated ringers IV infusion 1,000 mL 02-16 00:00: 00 02-16 03:07 :30 No [id number] 1000mL at 500 mL/hr, 1,000 mL, IV Infusion, CONTINUOUS , Starting on Sat02/15/23 at 1900, Until Sat02/15/23 at 2207, ROSELYN [facility] FENTanyl PF (SUBLIMAZE (PF)) injection 75 mcg 02-15 23:45: 00 02-15 23:13 :00 No [id number] 75ug 75 mcg, Slow IV Push, ONCE, 1 dose, On Sat02/15/23 at 1845, Routine [facility] dicyclomine (BENTYL) injection 20 mg 02-15 22:15: 00 02-15 21:46 :00 No [id number] 20mg 20 mg, Intramuscu lar, ONCE NOW, 1 dose, On Sat02/15/23 at 1715, Routine [facility] LORazepam (ATIVAN) injection 1 mg 02-15 21:45: 00 02-15 21:46 :00 No [id number] 1mg 1 mg, Slow IV Push, ONCE, 1 dose, On Sat02/15/23 at 1645, STAT [facility] ondansetron (ZOFRAN (PF)) injection 4 mg 02-15 21:45: 00 02-15 21:46 :00 No [id number] 4mg 4 mg, Slow IV Push, ONCE, 1 dose, On Sat02/15/23 at 1645, ROSELYN [facility] HYDROcodone -acetaminop hen (NORCO) 10-325 mg tablet 1 tablet 02-15 20:15: 00 02-15 19:52 :00 No [id number] 1{tbl} 1 tablet, Oral, ONCE, 1 dose, On Sat02/15/23 at 1515, Routine [facility] Melatonin 1 mg tablet 02-15 20:08: 23 02-15 00:00 :00 No 10mg Take 10 tablets by mouth every evening. [facility] trazodone HCl (DESYREL ORAL) 02-15 20:06: 33 02-15 00:00 :00 No 200mg Take 200 mg by mouth every evening. [facility] OLANZapine (ZYPREXA) 2.5 mg tablet 02-15 20:05: 48 02-15 00:00 :00 No 2.5mg Take 1 tablet by mouth in the morning and 1 tablet in the evening. [facility] hydrOXYzine (VISTARIL) 50 mg capsule 02-15 20:03: 04 02-15 00:00 :00 No 50mg Take 1 capsule by mouth every 4 (four) hours as needed for Itching. q 4-6 hours as needed [facility] dicyclomine (BENTYL) tablet 20 mg 02-15 19:30: 00 02-15 19:52 :00 No [id number] 20mg 20 mg, Oral, ONCE, 1 dose, On Sat02/15/23 at 1430, ROSELYN [facility] ibuprofen (IBU) tablet 800 mg 02-15 19:30: 00 02-15 19:52 :00 No [id number] 800mg 800 mg, Oral, ONCE, 1 dose, On Sat02/15/23 at 1430, ROSELYN [facility] losartan 50 mg tablet 02-15 13:44: 36 02-15 00:00 :00 No 50mg Take 1 tablet by mouth in the morning. [facility] Krypton-3-DHA -EPA-Fish Oil (FISH OIL) 1,000 mg (120 mg-180 mg) Cap 02-15 13:44: 15 02-15 00:00 :00 No 1000mg Take 1,000 mg by mouth daily. [facility] methocarbam oL 750 mg tablet 02-15 13:43: 47 02-15 00:00 :00 No 750mg Take 750 mg by mouth 3 (three) times daily. [facility] FENTanyl PF (SUBLIMAZE (PF)) injection 50 mcg 01-10 00:45: 00 01-09 23:46 :00 No 50ug 50 mcg, Slow IV Push, ONCE, 1 dose, On Sat01/09/22 at 1945, Routine [facility] ketorolac (TORADOL) injection 30 mg 01-09 23:45: 00 01-09 22:48 :00 No 30mg 30 mg, Slow IV Push, ONCE, 1 dose, On Sat01/09/22 at 1845, Routine [facility] aspirin chewable tablet 243 mg 12-14 14:00: 00 Yes 243mg 243 mg, Oral, DAILY, First dose on Sat12/14/21 at 0900, Until Discontinu ed, Routine [facility] ketorolac (TORADOL) injection 15 mg 12-14 08:15: 00 12-14 07:11 :00 No 15mg 15 mg, Slow IV Push, ONCE, 1 dose, On [place] 12/14/21 at 0315, [facility] morpHINE (4 mg/mL) injection 4 mg 12-14 05:45: 00 12-14 04:52 :00 No 4mg 4 mg, Slow IV Push, ONCE, 1 dose, On [place] 12/14/21 at 0045, STAT [facility] cefTRIAXone (ROCEPHIN) 1,000 mg in NaCl 0.9% (NS) 50 mL MINI-BAG 12-14 05:45: 00 12-14 05:30 :00 No 1000mg 1,000 mg, IV Piggyback, ONCE, 1 dose, On [place] 12/14/21 at 0045, Administer over 30 Minutes, 50 mL
Reas on for Anti-Infec tive: Documented Infection< br>Documen kaushik Infection Site: Urine
D uration of Therapy: Other (see Comments) [facility] NaCl 0.9% (NS) bolus infusion 1,000 mL 12-14 05:45: 00 12-14 07:20 :00 No 1000mL at 999 mL/hr, 1,000 mL, IV Infusion, ONCE, 1 dose, On [place] 12/14/21 at 0045, [facility] ondansetron (ZOFRAN (PF)) injection 4 mg 12-14 04:45: 00 12-14 03:50 :00 No 4mg 4 mg, Slow IV Push, ONCE, 1 dose, On Sat12/13/21 at 2345, [facility] FENTanyl PF (SUBLIMAZE (PF)) injection 50 mcg 12-14 04:45: 00 12-14 03:50 :00 No 50ug 50 mcg, Slow IV Push, ONCE, 1 dose, On Sat12/13/21 at 2345, Routine [facility] ALPRAZolam (XANAX) 1 mg tablet 12-14 02:22: 13 Yes 1mg Take 1 mg by mouth 2 (two) times daily. [facility] naproxen 500 mg tablet 12-14 00:00: 00 02-15 00:00 :00 No [id number] 500mg Take 1 tablet by mouth 2 (two) times daily with meals. [facility] cefpodoxime 200 mg tablet 12-14 00:00: 00 12-22 04:59 :00 No [id number] 200mg Take 1 tablet by mouth 2 (two) times daily for 7 days. [facility] LORazepam (ATIVAN) injection 1 mg 11-12 05:00: 00 11-12 04:01 :00 No 1mg 1 mg, Slow IV Push, ONCE, 1 dose, On 11/12/21 at 0000, STAT [facility] ketorolac (TORADOL) injection 30 mg 11-12 03:30: 00 11-12 02:26 :00 No 30mg 30 mg, Slow IV Push, ONCE, 1 dose, On 11/11/21 at 2230, Routine
manager membership approving Restricted medication : DEE WANG [facility] nitroglycer in (NITROSTAT) sublingual tablet 0.4 mg 11-12 03:30: 00 11-12 02:26 :00 No .4mg 0.4 mg, Sublingual , ONCE, 1 dose, On 11/11/21 at 2230, ROSELYN [facility] aspirin E.C. (ECOTRIN) tablet 325 mg 11-12 03:30: 00 11-12 02:25 :00 No 325mg 325 mg, Oral, ONCE, 1 dose, On 11/11/21 at 2230, STAT [facility] morpHINE (4 mg/mL) injection 4 mg 11-12 02:30: 00 11-12 01:40 :00 No 4mg 4 mg, Slow IV Push, ONCE, 1 dose, On 11/11/21 at 2130, STAT [facility] ondansetron (ZOFRAN (PF)) injection 4 mg 11-12 02:30: 00 11-12 01:40 :00 No 4mg 4 mg, Slow IV Push, ONCE, 1 dose, On 11/11/21 at 2130, [facility] NaCl 0.9% (NS) bolus infusion 1,000 mL 11-12 02:30: 00 11-12 02:30 :00 No 1000mL at 999 mL/hr, 1,000 mL, IV Infusion, ONCE, 1 dose, On 11/11/21 at 2130, [facility] hydrOXYzine 50 mg tablet 11-11 00:00: 00 Yes [id number] 50mg Take 1 tablet by mouth every 8 (eight) hours as needed for Anxiety. [facility] ketorolac (TORADOL) injection 30 mg 09-12 05:45: 00 09-12 04:54 :00 No 30mg 30 mg, Slow IV Push, ONCE, 1 dose, On Sat09/11/21 at 2345, Routine
manager membership approving Restricted medication : DEE WANG [facility] cefTRIAXone (ROCEPHIN) 1,000 mg in NaCl 0.9% (NS) 50 mL MINI-BAG 09-12 03:45: 00 09-12 03:41 :00 No 1000mg 1,000 mg, IV Piggyback, ONCE, 1 dose, On Sat09/11/21 at 2145, Administer over 30 Minutes, 50 mL
Reas on for Anti-Infec tive: Documented Infection< br>Documen kaushik Infection Site: Urine
D uration of Therapy: 7 days [facility] ondansetron (ZOFRAN (PF)) injection 4 mg 09-12 03:15: 00 09-12 02:39 :00 No 4mg 4 mg, Slow IV Push, ONCE, 1 dose, On Sat09/11/21 at 2115, [facility] morpHINE injection 4 mg 08 03:15: 00 09-12 02:39 :00 No 4mg 4 mg, Slow IV Push, ONCE, 1 dose, On Sat09/11/21 at 2115, STAT [facility] iopamidol (ISOVUE 370-500 mL) injection 120 mL 09-12 02:45: 00 09-12 03:00 :00 No [id number] 120mL 120 mL, Intravenou s, ONCE, 1 dose, On Sat09/11/21 at 2100, Routine [facility] sodium chloride (NS) injection 5 mL 09-12 01:33: 26 Yes 5mL 5 mL, Intravenou s, PRN, Starting on Sat09/11/21 at 1933, Until Discontinu ed, Routine, IV line flushing [facility] ibuprofen 600 mg tablet 09-11 00:00: 00 02-15 00:00 :00 No [id number] 600mg Take 1 tablet by mouth every 6 (six) hours as needed for Pain (scale 4-6). [facility] cefdinir 300 mg capsule 09-11 00:00: 00 09-19 04:59 :00 No [id number] 300mg Take 1 capsule by mouth 2 (two) times daily for 7 days. [facility] HYDROcodone -acetaminop hen (NORCO) 10-325 mg tablet 1 tablet 08-15 09:00: 00 08-15 07:59 :00 No 1{tbl} 1 tablet, Oral, ONCE, 1 dose, On Sat08/15/21 at 0300, Routine [facility] FENTanyl PF (SUBLIMAZE (PF)) injection 75 mcg 08-15 07:30: 00 08-15 06:42 :00 No 75ug 75 mcg, Intramuscu lar, ONCE, 1 dose, On Sat08/15/21 at 0130, Routine [facility] methocarbam oL (ROBAXIN) 500 mg tablet 08-15 00:00: 00 Yes [id number] 500mg Take 1 tablet by mouth every 6 (six) hours as needed for Pain (scale 7-10) (MUSCLE SPASM). [facility] traMADoL (ULTRAM) 50 mg tablet 08-15 00:00: 00 Yes [id number] 50mg Take 1 tablet by mouth every 6 (six) hours as needed for Pain (scale 7-10). Indication s: acute pain [facility] Nitrofurant oin&Nit. Macrocryst (MACROBID) 100 mg capsule 08-15 00:00: 00 02-15 00:00 :00 No [id number] 100mg Take 1 capsule by mouth 2 (two) times daily. [facility] morpHINE injection 4 mg 2020-07 08:30: 00 05-28 07:50 :00 No 4mg 4 mg, Slow IV Push, ONCE, 1 dose, On 05/28/21 at 0230, ROSELYN [facility] maalox:diph enhydrAMINE :lidocaine 2 % viscous 1:1:1 ([facility]) oral suspension 15 mL 2020-07 08:00: 00 05-28 07:04 :00 No 15mL 15 mL, Oral, ONCE, 1 dose, On 05/28/21 at 0200, Routine [facility] FENTanyl PF (SUBLIMAZE (PF)) injection 50 mcg 2020-07 07:00: 00 05-28 06:02 :00 No 50ug 50 mcg, Slow IV Push, ONCE, 1 dose, On 05/28/21 at 0100, STAT [facility] famotidine (PEPCID (PF)) injection 20 mg 2020-07 07:00: 00 05-28 06:01 :00 No 20mg 20 mg, Slow IV Push, ONCE, 1 dose, On 05/28/21 at 0100, ROSELYN [facility] famotidine 20 mg tablet 2020-07 00:00: 00 06-13 05:59 :00 No [id number] 20mg Take 1 tablet by mouth 2 (two) times daily for 15 days. [facility] escitalopra m oxalate (LEXAPRO) tablet 10 mg 2020-07 003 02:00: 00 Yes 10mg 10 mg, Oral, QHS, First dose on 04/08/21 at 2100, Until Discontinu ed, Routine [facility] aspirin 81 mg chewable tablet 2020-07 00:00: 00 05-10 04:59 :00 No [id number] 81mg Take 1 tablet by mouth daily for 30 days. [facility] traZODone (DESYREL) tablet 200 mg 2020-07 22:00: 00 Yes 200mg 200 mg, Oral, QPM, First dose on 04/08/21 at 1700, Until Discontinu ed [facility] topiramate (TOPAMAX) tablet 200 mg 2020-07 22:00: 00 Yes 200mg 200 mg, Oral, QPM, First dose on 04/08/21 at 1700, Until Discontinu ed, Routine
manager membership approving Restricted medication : ALEXEY ALEGRE [facility] OLANZapine (ZyPREXA) tablet 15 mg 2020-07 22:00: 00 Yes 15mg 15 mg, Oral, QPM, First dose on 04/08/21 at 1700, Until Discontinu ed, Routine [facility] melatonin (MELATIN) tablet 9 mg 2020-07 22:00: 00 Yes 9mg 9 mg, Oral, QPM, First dose on 04/08/21 at 1700, Until Discontinu ed [facility] methocarbam oL 750 mg tablet 2020-07 17:45: 33 Yes 750mg Take 750 mg by mouth 3 (three) times daily. [facility] Krypton-3-DHA -EPA-Fish Oil (FISH OIL) 1,000 mg (120 mg-180 mg) Cap 2020-07 17:45: 33 Yes 1000mg Take 1,000 mg by mouth daily. [facility] hydrOXYzine (VISTARIL) 50 mg capsule 2020-07 17:45: 33 Yes 50mg Take 50 mg by mouth every 4 (four) hours as needed for Itching. q 4-6 hours as needed [facility] losartan 50 mg tablet 2020-07 17:45: 33 Yes 50mg Take 50 mg by mouth daily. [facility] trazodone HCl (DESYREL ORAL) 2020-07 17:45: 33 Yes 200mg Take 200 mg by mouth every evening. [facility] escitalopra m oxalate (LEXAPRO) 5 mg tablet 2020-07 17:45: 33 Yes 10mg Take 10 mg by mouth at bedtime. [facility] Melatonin 1 mg tablet 2020-07 17:45: 33 Yes 10mg Take 10 mg by mouth every evening. [facility] topiramate (TOPAMAX) 200 mg tablet 2020-07 17:45: 33 Yes 200mg Take 200 mg by mouth every evening. [facility] bupropion HCl (WELLBUTRIN ORAL) 2020-07 17:45: 33 Yes 150mg Take 150 mg by mouth every morning. [facility] OLANZapine (ZYPREXA) 15 mg tablet 2020-07 17:45: 33 Yes 15mg Take 15 mg by mouth every evening. [facility] OLANZapine (ZYPREXA) 2.5 mg tablet 2020-07 17:45: 33 Yes 2.5mg Take 2.5 mg by mouth 2 (two) times daily. [facility] furosemide (LASIX) injection 20 mg 2020-07 14:30: 00 Yes 20mg 20 mg, Slow IV Push, Q12H, First dose on 04/08/21 at 0930, Until Discontinu ed, Routine [facility] losartan (COZAAR) tablet 50 mg 2020-07 14:00: 00 Yes 50mg 50 mg, Oral, DAILY, First dose on 04/08/21 at 0900, Until Discontinu ed, Routine [facility] buPROPion XL (WELLBUTRIN XL) tablet 150 mg 2020-07 14:00: 00 Yes 150mg 150 mg, Oral, DAILY, First dose on 04/08/21 at 0900, Until Discontinu ed [facility] aspirin chewable tablet 81 mg 2020-07 14:00: 00 Yes 81mg 81 mg, Oral, DAILY, First dose on Sat04/08/21 at 0900, Until Discontinu ed, Routine [facility] enoxaparin (LOVENOX) injection 40 mg 2020-07 14:00: 00 Yes 40mg 40 mg, Subcutaneo us, DAILY, First dose on Sat04/08/21 at 0900, Until Discontinu ed, Routine [facility] OLANZapine (ZyPREXA) tablet 2.5 mg 2020-07 13:00: 00 Yes 2.5mg 2.5 mg, Oral, BID, First dose on Sat04/08/21 at 0800, Until Discontinu ed, Routine [facility] methocarbam oL (ROBAXIN) tablet 750 mg 2020-07 13:00: 00 Yes 750mg 750 mg, Oral, TID, First dose on Sat04/08/21 at 0800, Until Discontinu ed, Routine [facility] LORazepam (ATIVAN) injection 0.5 mg 2020-07 04:07: 43 Yes .5mg 0.5 mg, Slow IV Push, PRN, 2 doses, Starting on Sat04/07/21 at 2307, Until Discontinu ed, Routine, Anxiety [facility] hydrOXYzine (ATARAX) tablet 50 mg 2020-07 02:51: 23 Yes 50mg 50 mg, Oral, Q4HPRN, Starting on Sat04/07/21 at 2151, Until Discontinu ed, Itching [facility] LORazepam (ATIVAN) tablet 0.5 mg 2020-07 02:05: 29 Yes .5mg 0.5 mg, Oral, PRN, 2 doses, Starting on Sat04/07/21 at 2105, Until Discontinu ed, Routine, Anxiety [facility] morpHINE injection 4 mg 2020-07 00:00: 00 04-07 22:58 :00 No 4mg 4 mg, Slow IV Push, ONCE, 1 dose, On Sat04/07/21 at 1900, STAT [facility] ondansetron (ZOFRAN (PF)) injection 4 mg 2020-07 00:00: 00 04-07 22:56 :00 No 4mg 4 mg, Slow IV Push, ONCE, 1 dose, On Sat04/07/21 at 1900, ROSELYN [facility] morpHINE injection 4 mg 2020-07 23:58: 03 04-08 23:57 :03 No 4mg 4 mg, Slow IV Push, Q4HPRN, Starting on Sat04/07/21 at 1858, Until 04/08/21 at 1857, Routine, Pain (scale 7-10) [facility] HYDROcodone -acetaminop hen (NORCO 5) 5-325 mg tablet 1 tablet 2020-07 23:58: 00 04-09 23:57 :00 No 1{tbl} 1 tablet, Oral, Q6HPRN, Starting on Sat04/07/21 at 1858, Until 04/09/21 at 1857, Routine, Pain (scale 4-6) [facility] acetaminoph en (TYLENOL) tablet 650 mg 2020-07 23:57: 57 Yes 650mg 650 mg, Oral, Q6HPRN, Starting on Sat04/07/21 at 1857, Until Discontinu ed, Routine, Pain (scale 1-3) [facility] aspirin tablet 325 mg 2020-07 23:00: 00 04-07 21:56 :00 No 325mg 325 mg, Oral, ONCE, 1 dose, On Sat04/07/21 at 1800, STAT [facility] nitroglycer in (NITROSTAT) sublingual tablet 0.4 mg 2020-07 21:51: 01 04-07 22:46 :00 No .4mg 0.4 mg, Sublingual , Q5MIN PRN, 3 doses, Starting on Sat04/07/21 at 1651, Until Discontinu ed, ROSELYN, Chest pain [facility] fluconazole (DIFLUCAN) tablet 150 mg 01-12 14:00: 00 Yes 150mg 150 mg, Oral, DAILY, First dose on [place] 01/12/21 at 0900, Until Discontinu ed, ROSELYN
Re ason for Anti-Infec tive: Empiric Therapy for Suspected Infection< br>Empiric Therapy Site: HEENT
D uration of therapy: 72 hours [facility] cefTRIAXone (ROCEPHIN) 1,000 mg in NaCl 0.9% (NS) 50 mL MINI-BAG 01-12 10:15: 00 01-12 09:49 :00 No 1000mg 1,000 mg, IV Piggyback, ONCE, 1 dose, [place] 01/12/21 at 0515, 50 mL
Reas on for Anti-Infec tive: Empiric Therapy for Suspected Infection< br>Empiric Therapy Site: Urine
D uration of therapy: 72 hours [facility] hydrOXYzine (ATARAX) tablet 25 mg 01-12 10:15: 00 01-12 09:18 :00 No 25mg 25 mg, Oral, ONCE, 1 dose, [place] 01/12/21 at 0515, ROSELYN [facility] HYDROcodone -acetaminop hen (NORCO) 10-325 mg tablet 1 tablet 01-12 10:15: 00 01-12 09:18 :00 No 1{tbl} 1 tablet, Oral, ONCE, 1 dose, [place] 01/12/21 at 0515, Routine [facility] maalox:diph enhydrAMINE :lidocaine2 %viscous 1:1:1: suspension (COMPOUNDED ) 01-12 09:30: 00 01-12 08:25 :00 No 15mL 15 mL, Oral, ONCE, 1 dose, [place] 01/12/21 at 0430, Routine [facility] cephALEXin (KEFLEX) 500 mg capsule 01-12 00:00: 00 04-07 00:00 :00 No [id number] 500mg Take 1 capsule by mouth 3 (three) times daily. [facility] HYDROcodone -acetaminop hen (NORCO 5) 5-325 mg tablet 1 tablet 12-11 02:00: 00 12-11 01:29 :00 No 1{tbl} 1 tablet, Oral, ONCE, 1 dose, 12/10/20 at 2100, ROSELYN [facility] LORazepam (ATIVAN) injection 1 mg 12-11 00:30: 00 12-10 23:36 :00 No 1mg 1 mg, Slow IV Push, ONCE, 1 dose, 12/10/20 at 1930, STAT [facility] ketorolac (TORADOL) injection 30 mg 12-11 00:30: 00 12-10 23:36 :00 No 30mg 30 mg, Slow IV Push, ONCE, 1 dose, 12/10/20 at 1930, ROSELYN
Fa culty member approving Restricted medication : EMERGENCY ROOM, [facility] ondansetron (ZOFRAN (PF)) injection 4 mg 12-10 23:45: 00 12-10 22:46 :00 No 4mg 4 mg, Slow IV Push, ONCE, 1 dose, 12/10/20 at 1845, ROSELYN [facility] NaCl 0.9% (NS) bolus infusion 2,000 mL 12-10 22:45: 00 12-11 01:29 :00 No 2000mL at 999 mL/hr, 2,000 mL, IV Infusion, ONCE, 1 dose, 12[facility]10/20 [facility] 1745[facility]azin [facility] 25 mg tablet 12-10 00:00: 00 04-07 00:00 :00 No [id number] 12.5mg Take 0.5 tablets by mouth every 6 (six) hours as needed for N/V unresponsi ve to Ondansetro n. [facility] morpHINE injection 4 mg 12-04 22:30: 00 12-04 21:37 :00 No 4mg 4 mg, Slow IV Push, ONCE, 1 dose, 12/04/20 at 1730, STAT [facility] losartan 50 mg tablet 12-04 22:03: 53 Yes 50mg Take 50 mg by mouth daily. [facility] LORazepam (ATIVAN) tablet 1 mg 12-04 21:45: 00 12-04 20:44 :00 No 1mg 1 mg, Oral, ONCE, 1 dose, 12/04/20 at 1645, ROSELYN [facility] ondansetron (ZOFRAN (PF)) injection 4 mg 12-04 21:15: 00 12-04 20:22 :00 No 4mg 4 mg, Slow IV Push, ONCE, 1 dose, 12/04/20 at 1615, ROSELYN [facility] morpHINE injection 4 mg 12-04 21:15: 00 12-04 20:21 :00 No 4mg 4 mg, Slow IV Push, ONCE, 1 dose, [place] 12/04/20 at 1615, STAT [facility] ALPRAZolam (XANAX) 2 mg tablet 11-04 04:24: 19 11-03 00:00 :00 No 2mg Take 2 mg by mouth at bedtime. [facility] LORazepam (ATIVAN) injection 1 mg 11-04 04:00: 00 11-04 02:57 :00 No 1mg 1 mg, Slow IV Push, ONCE, 1 dose, [facility] 11/03/20 at 2300, STAT [facility] LORazepam (ATIVAN) tablet 1 mg 11-04 04:00: 00 11-04 02:57 :00 No 1mg 1 mg, Oral, ONCE, 1 dose, [facility] 11/03/20 at 2300, ROSELYN [facility] clonazePAM 0.5 mg tablet 11-01 00:00: 00 04-07 00:00 :00 No .5mg Take 0.5 mg by mouth. [facility] SERTraline 100 mg tablet 11-01 00:00: 00 04-07 00:00 :00 No 100mg Take 100 mg by mouth. [facility] busPIRone 10 mg tablet 2021-0 4-13 00:00: 00 04-07 00:00 :00 No 10mg Take 10 mg by mouth. [facility] ibuprofen (IBU) tablet 800 mg 09-17 16:55: 00 09-17 16:57 :00 No 800mg 800 mg, Oral, ONCE, 1 dose, 09/17/20 at 1100, ROSELYN [facility] benzonatate 100 mg capsule 09-17 00:00: 00 04-07 00:00 :00 No [id number] 100mg Take 1 capsule by mouth 3 (three) times daily as needed for Cough. [facility] amoxicillin 500 mg capsule 09-17 00:00: 00 09-28 04:59 :00 No [id number] 500mg Take 1 capsule by mouth 3 (three) times daily for 10 days. [facility] HYDROcodone -acetaminop hen (NORCO) 10-325 mg tablet 1 tablet 09-07 07:45: 00 09-07 07:09 :00 No 1{tbl} 1 tablet, Oral, ONCE, 1 dose, 09/07/20 at 0145, Routine [facility] ondansetron (ZOFRAN-ODT ) disintegrat ing tablet 4 mg 09-07 07:15: 00 09-07 07:15 :00 No 4mg 4 mg, Oral, ONCE, 1 dose, 09/07/20 at 0130, Routine [facility] ibuprofen 800 mg tablet 09-07 00:00: 00 Yes [id number] 800mg Take 1 tablet by mouth every 8 (eight) hours as needed for Pain (scale 4-6). [facility] ketorolac (TORADOL) injection 30 mg 08-28 10:45: 00 08-28 09:48 :00 No 30mg 30 mg, Slow IV Push, ONCE, 1 dose, 08/28/20 at 0445, Routine
manager membership approving Restricted medication : OLIVIA GARCIA [facility] ondansetron (ZOFRAN (PF)) injection 4 mg 08-28 10:00: 00 08-28 09:06 :00 No 4mg 4 mg, Slow IV Push, ONCE, 1 dose, 08/28/20 at 0400, ROSELYN [facility] FENTanyl PF (SUBLIMAZE (PF)) injection 50 mcg 08-28 10:00: 00 08-28 09:07 :00 No 50ug 50 mcg, Slow IV Push, ONCE, 1 dose, 08/28/20 at 0400, Routine [facility] maalox:diph enhydrAMINE :lidocaine 2 % viscous 1:1:1 (FIRST-MOUT HWASH BLM) oral suspension 15 mL 08-28 10:00: 00 08-28 09:07 :00 No 15mL 15 mL, Oral, ONCE, 1 dose, 08/28/20 at 0400, Routine [facility] iohexol (OMNIPAQUE 350 BULK-100 mL) injection 120 mL 08-28 09:30: 00 08-28 09:11 :00 No 120mL 120 mL, Intravenou s, ONCE, 1 dose, 08/28/20 at 0330, Routine [facility] dicyclomine 20 mg tablet 08-28 00:00: 00 04-07 00:00 :00 No [id number] 20mg Take 1 tablet by mouth every 6 (six) hours as needed for Abdominal pain. [facility] ondansetron (ZOFRAN) 4 mg tablet 08-28 00:00: 00 09-17 00:00 :00 No [id number] 4mg Take 1 tablet by mouth every 8 (eight) hours as needed for Nausea and Vomiting (N/V). [facility] FENTanyl PF (SUBLIMAZE (PF)) injection 25 mcg 08-14 19:00: 00 08-14 18:09 :00 No 25ug 25 mcg, Slow IV Push, ONCE, 1 dose, 08/14/20 at 1300, STAT [facility] ondansetron (ZOFRAN (PF)) injection 4 mg 08-14 19:00: 08-14 18:10 :00 No 4mg 4 mg, Slow IV Push, ONCE, 1 dose, 08/14/20 at 1300, ROSELYN [facility] ketorolac (TORADOL) injection 15 mg 08-14 19:00: 08-14 18:09 :00 No 15mg 15 mg, Slow IV Push, ONCE, 1 dose, 08/14/20 at 1300, ROSELYN
Fa culty member approving Restricted medication : BEST TAYLOR [facility] piperacilli n-tazobacta m (ZOSYN) 3.375 g in NaCl 0.9% (NS) 100 mL MINI-BAG 08-14 19:00: 08-14 18:38 :00 No 3.375g 3.375 g, IV Piggyback, ONCE, 1 dose, 08/14/20 at 1300, 100 mL
Reas on for Anti-Infec tive: Documented Infection< br>Documen kaushik Infection Site: Urine
D uration of Therapy: Other (see Comments) [facility] NaCl 0.9% (NS) bolus infusion 1,000 mL 08-14 19:00: 08-14 19:00 :00 No 1000mL at 999 mL/hr, 1,000 mL, IV Infusion, ONCE, 1 dose, 08/14/20 at 1300, STAT [facility] guaiFENesin 100 mg/5 mL solution 08-14 00:00: 00 04-07 00:00 :00 No [id number] 100mg Take 5 mL by mouth every 4 (four) hours. [facility] ondansetron 4 mg disintegrat ing tablet 08-14 00:00: 00 09-17 00:00 :00 No [id number] 4mg Take 1 tablet by mouth every 8 (eight) hours as needed for Nausea and Vomiting (N/V). [facility] ibuprofen 600 mg tablet 08-14 00:00: 00 09-17 00:00 :00 No [id number] 600mg Take 1 tablet by mouth every 6 (six) hours as needed for Pain (scale 4-6). [facility] amoxicillin -clavulanat e 875-125 mg per tablet 2- 00:00: 00 08-25 05:59 :00 No [id number] 1{tbl} Take 1 tablet by mouth 2 (two) times daily for 10 days. [facility] fluconazole (DIFLUCAN) tablet 150 mg 2- 15:00: 00 Yes 150mg 150 mg, Oral, DAILY, First dose on [place] 08/11/20 at 0900, Until Discontinu ed, ROSELYN
Re ason for Anti-Infec tive: Documented Infection< br>Documen kaushik Infection Site: Urine
D uration of Therapy: Other (see Comments) [facility] HYDROcodone -acetaminop hen (NORCO) 10-325 mg tablet 1 tablet 08-11 05:30: 00 08-11 05:08 :00 No 1{tbl} 1 tablet, Oral, ONCE NOW, 1 dose, 08/10/20 at 2330, Routine [facility] FENTanyl PF (SUBLIMAZE (PF)) injection 25 mcg - 04:30: 00 08-11 03:19 :00 No 25ug 25 mcg, Slow IV Push, ONCE, 1 dose, 08/10/20 at 2230, STAT [facility] ondansetron (ZOFRAN (PF)) injection 4 mg - 04:15: 00 08-11 03:19 :00 No 4mg 4 mg, Slow IV Push, ONCE, 1 dose, 08/10/20 at 2215, ROSELYN [facility] NaCl 0.9% (NS) bolus infusion 1,000 mL 2 01:45: 00 08-11 03:45 :00 No 1000mL at 999 mL/hr, 1,000 mL, IV Infusion, ONCE, 1 dose, 08/10/20 at 1945, STAT [facility] ketorolac (TORADOL) injection 30 mg 08-11 01:45: 00 08-11 02:31 :00 No 30mg 30 mg, Slow IV Push, ONCE, 1 dose, 08/10/20 at 1945, ROSELYN
Fa culty member approving Restricted medication : BEST TAYLOR [facility] traMADoL (ULTRAM) 50 mg tablet 08-10 00:00: 00 09-17 00:00 :00 No [id number] 50mg Take 1 tablet by mouth every 6 (six) hours as needed for Pain (scale 7-10). Indication s: acute pain [facility] ibuprofen 800 mg tablet 08-07 00:00: 00 09-17 00:00 :00 No [id number] 800mg Take 1 tablet by mouth every 8 (eight) hours. [facility] amoxicillin 500 mg capsule 08-07 00:00: 00 09-17 00:00 :00 No [id number] 500mg Take 1 capsule by mouth 3 (three) times daily. [facility] traMADoL 50 mg tablet 08-07 00:00: 00 09-17 00:00 :00 No [id number] 50mg Take 1 tablet by mouth every 6 (six) hours as needed for Pain (scale 4-6). Indication s: acute pain [facility] LORazepam (ATIVAN) tablet 1 mg 2019-07 03:15: 00 07-01 02:21 :00 No 1mg 1 mg, Oral, ONCE, 1 dose, [place] 06/30/20 at 2115, ROSELYN [facility] FENTanyl PF (SUBLIMAZE (PF)) injection 50 mcg 2019-07 02:30: 00 07-01 01:39 :00 No 50ug 50 mcg, Slow IV Push, ONCE, 1 dose, [place] 06/30/20 at 2030, Routine [facility] ondansetron (ZOFRAN-ODT ) disintegrat ing tablet 4 mg 2019-07 01:15: 00 07-01 00:52 :00 No 4mg 4 mg, Oral, ONCE, 1 dose, [place] 06/30/20 at 1915, Routine [facility] ketorolac (TORADOL) injection 30 mg 2019-07 01:15: 00 07-01 00:52 :00 No 30mg 30 mg, Slow IV Push, ONCE, 1 dose, [place] 06/30/20 at 1915, ROSELYN
[facility] member approving Restricted medication : ABDIAS ROBERTSON [facility] albuterol 90 mcg/actuati on inhaler 2019-07 00:00: 00 04-07 00:00 :00 No [id number] 2{puff} Inhale 2 Puffs every 4 (four) hours as needed for Wheezing or Shortness of Breath. [facility] hydrOXYzine 25 mg tablet 2019-07 00:00: 09-17 00:00 :00 No [id number] 25mg Take 1 tablet by mouth every 6 (six) hours as needed for Anxiety. [facility] naproxen sodium (ANAPROX DS) 550 mg tablet 2019-07 00:00: 00 04-07 00:00 :00 No [id number] 550mg Take 1 tablet by mouth 2 (two) times daily with meals. [facility] methylPREDN ISolone (MEDROL, BEBETO,) 4 mg tablets 2019-07 00:00: 00 09-17 00:00 :00 No [id number] Take by mouth SEE-INSTRU CTIONS. follow package directions [facility] methocarbam oL 500 mg tablet 2019-07 00:00: 00 07-04 05:59 :00 No [id number] 500mg Take 1 tablet by mouth 3 (three) times daily for 5 days. [facility] proMETHazin e (PHENERGAN) tablet 25 mg 2019-07 04:45: 00 06-13 03:37 :00 No 25mg 25 mg, Oral, ONCE, 1 dose, 06/12/20 at 2245, ROSELYN [facility] ondansetron (ZOFRAN (PF)) injection 4 mg 2019-07 03:00: 00 06-13 01:59 :00 No 4mg 4 mg, Slow IV Push, ONCE, 1 dose, 06/12/20 at 2100, [facility] ketorolac (TORADOL) injection 15 mg 2019-07 03:00: 00 06-13 01:58 :00 No 15mg 15 mg, Intramuscu lar, ONCE, 1 dose, 06/12/20 at 2100, ROSELYN
Fa culty member approving Restricted medication : LEEANNE WISE [facility] morpHINE injection 4 mg 2019-07 01:30: 00 06-13 00:41 :00 No 4mg 4 mg, Slow IV Push, ONCE, 1 dose, 06/12/20 at 1930, STAT [facility] ondansetron (ZOFRAN (PF)) injection 4 mg 2019-07 00:45: 00 06-13 00:41 :00 No 4mg 4 mg, Slow IV Push, ONCE, 1 dose, 06/12/20 at 1845, [facility] NaCl 0.9% (NS) bolus infusion 1,000 mL 2019-07 23:45: 00 06-13 03:54 :00 No 1000mL at 999 mL/hr, 1,000 mL, IV Infusion, ONCE, 1 dose, 06/12/20 at 1745, [facility] dicyclomine 20 mg tablet 2019-07 00:00: 00 04-07 00:00 :00 No [id number] 20mg Take 1 tablet by mouth 4 (four) times daily as needed for Abdominal pain. [facility] proMETHazin e 25 mg tablet 2019-07 00:00: 00 09-17 00:00 :00 No [id number] 25mg Take 1 tablet by mouth every 6 (six) hours as needed for Nausea and Vomiting (N/V). [facility] famotidine 20 mg tablet 2019-07 00:00: 00 2020- 12-21 05:59 :00 No [id number] 20mg Take 1 tablet by mouth at bedtime for 14 days. [facility] haloperidol lactate (HALDOL) injection 2.5 mg 2019-07 01:00: 00 05-16 23:51 :00 No 2.5mg 2.5 mg, Intravenou s, ONCE, 1 dose, 05/16/20 at 1900, STAT [facility] NaCl 0.9% (NS) bolus infusion 1,000 mL 2019-07 23:45: 00 05-17 00:54 :00 No 1000mL at 999 mL/hr, 1,000 mL, IV Infusion, ONCE, 1 dose, [facility]16[facility]20 [facility] 1745[facility] (PHENERGAN) 25 mg suppository 2019-07 00:00: 00 Yes [id number] 25mg Insert 1 Suppositor y into rectum every 4 (four) hours as needed for Nausea and Vomiting (N/V). [facility] ondansetron (ZOFRAN (PF)) injection 4 mg 2019-07 07:30: 00 05-15 06:26 :00 No 4mg 4 mg, Slow IV Push, ONCE, 1 dose, [place] 05/15/20 at 0130, [facility] iohexol (OMNIPAQUE 350 BULK-100 mL) injection 120 mL 2019-07 07:00: 00 05-15 06:52 :00 No 120mL 120 mL, Intravenou s, ONCE, 1 dose, [place] 05/15/20 at 0100, Routine [facility] ondansetron (ZOFRAN (PF)) injection 4 mg 2019-07 06:30: 00 05-15 05:52 :00 No 4mg 4 mg, Slow IV Push, ONCE, 1 dose, [place] 05/15/20 at 0030, ROSELYN [facility] ALPRAZolam (XANAX) 2 mg tablet 2019-07 05:30: 59 Yes 2mg Take 2 mg by mouth at bedtime. [facility] zolpidem 5 mg tablet 15 00:00: 00 04-07 00:00 :00 No 5mg Take 5 mg by mouth. [facility] Immunizations Ordered Immunization Name Filled Immunization Name Date Status Comments Source Covid-19 Vaccine Moderna (Spikevax), Mrna-lnp, Zackery Protein, Pf Unknown Completed Kellee Seybold - External Covid-19 Vaccine Moderna (Spikevax), Mrna-lnp, Zackery Protein, Pf Unknown Completed Kellee Seybold - External Covid-19 Vaccine Moderna (Spikevax), Mrna-lnp, Zackery Protein, Pf Unknown Completed Kellee Seybold - External Vital Signs Vital Name Observation Time Observation Value Comments S ource Body temperature 2023-12-13 14:10:00 36.72 Latanya Kellee Seybold - External Respiratory rate 2023-12-13 14:10:00 15 /min Kellee Ariasybold - External Body height 2023-12-13 14:10:00 157.5 cm Kellee Seybold - External Body weight 2023-12-13 14:10:00 105.688 kg Kellee Seybold - External BMI 2023-12-13 14:10:00 42.62 kg/m2 Kellee Seybold - External Systolic blood pressure 2023-12-13 14:10:00 118 mm[Hg] Kellee Seybold - External Diastolic blood pressure 2023-12-13 14:10:00 74 mm[Hg] Kellee Seybold - External Heart rate 2023-12-13 14:10:00 97 /min Kellee Seybold - External Systolic blood pressure 2023-12-03 15:44:00 138 mm[Hg] Kellee Seybold - External Diastolic blood pressure 2023-12-03 15:44:00 74 mm[Hg] Kellee Seybold - External Heart rate 2023-12-03 15:44:00 110 /min Kellee Seybold - External Body temperature 2023-12-03 15:44:00 37 Latanya Kellee Seybold - External Respiratory rate 2023-12-03 15:44:00 15 /min Kellee Seybold - External Body height 2023-12-03 15:44:00 157.5 cm Kellee Seybold - External Body weight 2023-12-03 15:44:00 104.781 kg Kellee Buckley - External BMI 2023-12-03 15:44:00 42.25 kg/m2 Kellee Ariasybold - External Systolic blood pressure 2023-10-29 18:12:00 132 mm[Hg] Kellee Ariasybold - External Diastolic blood pressure 2023-10-29 18:12:00 84 mm[Hg] Kellee Floresold - External Heart rate 2023-10-29 18:12:00 82 /min Kellee Buckley - External Body temperature 2023-10-29 18:12:00 36.72 Latanya Kellee Buckley - External Respiratory rate 2023-10-29 18:12:00 18 /min Kellee Buckley - External Body height 2023-10-29 18:12:00 157.5 cm Kellee Buckley - External Body weight 2023-10-29 18:12:00 106.142 kg Kellee Buckley - External BMI 2023-10-29 18:12:00 42.80 kg/m2 Kellee Buckley - External Oxygen saturation in Arterial blood by Pulse oximetry 2023-10-29 18:12:00 97 /min Kellee Floresold - External Systolic blood pressure 2023-10-11 05:00:00 126 mm[Hg] [facility] Diastolic blood pressure 2023-10-11 05:00:00 87 mm[Hg] [facility] Heart rate 2023-10-11 05:00:00 94 /min [facility] Respiratory rate 2023-10-11 05:00:00 22 /min [facility] Oxygen saturation in Arterial blood by Pulse oximetry 2023-10-11 05:00:00 98 /min [facility] Body temperature 2023-10-11 02:28:00 37.22 Latanya [facility] Body height 2023-10-11 02:28:00 157.5 cm [facility] Body weight 2023-10-11 02:28:00 99.791 kg [facility] BMI 2023-10-11 02:28:00 40.24 kg/m2 [facility] Systolic blood pressure 2023-07-02 04:10:00 147 mm[Hg] [facility] Diastolic blood pressure 2023-07-02 04:10:00 89 mm[Hg] [facility] Heart rate 2023-07-02 04:10:00 73 /min [facility] Respiratory rate 2023-07-02 04:10:00 19 /min [facility] Oxygen saturation in Arterial blood by Pulse oximetry 2023-07-02 04:10:00 98 /min [facility] Body temperature 2023-07-02 01:47:00 36.78 Latanya [facility] Body height 2023-07-02 01:47:00 160 cm [facility] Body weight 2023-07-02 01:47:00 97.659 kg [facility] BMI 2023-07-02 01:47:00 38.14 kg/m2 [facility] Systolic blood pressure 2023-05-10 01:00:00 133 mm[Hg] [facility] Diastolic blood pressure 2023-05-10 01:00:00 81 mm[Hg] [facility] Heart rate 2023-05-10 01:00:00 64 /min [facility] Respiratory rate 2023-05-10 01:00:00 21 /min [facility] Oxygen saturation in Arterial blood by Pulse oximetry 2023-05-10 01:00:00 96 /min [facility] Body temperature 2023-05-09 22:43:00 36.67 Latanya [facility] Body height 2023-05-09 22:43:00 157.5 cm [facility] Body weight 2023-05-09 22:43:00 99.791 kg [facility] BMI 2023-05-09 22:43:00 40.24 kg/m2 [facility] Systolic blood pressure 2023-05-01 01:00:00 107 mm[Hg] [facility] Diastolic blood pressure 2023-05-01 01:00:00 80 mm[Hg] [facility] Heart rate 2023-05-01 01:00:00 80 /min [facility] Body temperature 2023-05-01 01:00:00 37.06 Latanya [facility] Respiratory rate 2023-05-01 01:00:00 16 /min [facility] Oxygen saturation in Arterial blood by Pulse oximetry 2023-05-01 01:00:00 98 /min [facility] Body height 2023-04-30 22:16:00 157.5 cm [facility] Body weight 2023-04-30 22:16:00 95.255 kg [facility] BMI 2023-04-30 22:16:00 38.41 kg/m2 [facility] Systolic blood pressure 2023-04-17 02:00:00 147 mm[Hg] [facility] Diastolic blood pressure 2023-04-17 02:00:00 83 mm[Hg] [facility] Heart rate 2023-04-17 02:00:00 90 /min [facility] Respiratory rate 2023-04-17 02:00:00 18 /min [facility] Oxygen saturation in Arterial blood by Pulse oximetry 2023-04-17 02:00:00 96 /min [facility] Body temperature 2023-04-17 01:33:00 36.78 Latanya [facility] Body height 2023-04-17 01:33:00 157.5 cm [facility] Body weight 2023-04-17 01:33:00 99.791 kg [facility] BMI 2023-04-17 01:33:00 40.24 kg/m2 [facility] Systolic blood pressure 2023-04-09 01:04:48 135 mm[Hg] [facility] Diastolic blood pressure 2023-04-09 01:04:48 84 mm[Hg] [facility] Heart rate 2023-04-09 01:04:48 67 /min [facility] Respiratory rate 2023-04-09 01:04:48 16 /min [facility] Oxygen saturation in Arterial blood by Pulse oximetry 2023-04-09 01:04:48 99 /min [facility] Body temperature 2023-04-08 22:16:00 36.67 Latanya [facility] Body height 2023-04-08 22:16:00 157.5 cm [facility] Body weight 2023-04-08 22:16:00 99.791 kg [facility] BMI 2023-04-08 22:16:00 40.24 kg/m2 [facility] Systolic blood pressure 2023-03-10 05:00:00 156 mm[Hg] [facility] Diastolic blood pressure 2023-03-10 05:00:00 94 mm[Hg] [facility] Heart rate 2023-03-10 05:00:00 75 /min [facility] Respiratory rate 2023-03-10 05:00:00 21 /min [facility] Oxygen saturation in Arterial blood by Pulse oximetry 2023-03-10 05:00:00 97 /min [facility] Body temperature 2023-03-10 01:20:00 36.72 Latanya [facility] Body height 2023-03-10 01:20:00 157.5 cm [facility] Body weight 2023-03-10 01:20:00 100.381 kg [facility] BMI 2023-03-10 01:20:00 40.48 kg/m2 [facility] Systolic blood pressure 2023-03-02 06:00:00 126 mm[Hg] [facility] Diastolic blood pressure 2023-03-02 06:00:00 79 mm[Hg] [facility] Heart rate 2023-03-02 06:00:00 69 /min [facility] Respiratory rate 2023-03-02 06:00:00 23 /min [facility] Oxygen saturation in Arterial blood by Pulse oximetry 2023-03-02 06:00:00 94 /min [facility] Body temperature 2023-03-02 00:34:00 37.28 Latanya [facility] Body height 2023-03-02 00:34:00 157.5 cm [facility] Body weight 2023-03-02 00:34:00 99.791 kg [facility] BMI 2023-03-02 00:34:00 40.24 kg/m2 [facility] Systolic blood pressure 2023-02-18 06:46:00 126 mm[Hg] [facility] Diastolic blood pressure 2023-02-18 06:46:00 77 mm[Hg] [facility] Heart rate 2023-02-18 06:46:00 79 /min [facility] Respiratory rate 2023-02-18 06:46:00 16 /min [facility] Oxygen saturation in Arterial blood by Pulse oximetry 2023-02-18 06:46:00 95 /min [facility] Body temperature 2023-02-18 03:55:00 36.72 Latanya [facility] Body height 2023-02-18 03:55:00 157.5 cm [facility] Body weight 2023-02-18 03:55:00 102.331 kg [facility] BMI 2023-02-18 03:55:00 41.26 kg/m2 [facility] Systolic blood pressure 2023-02-17 16:20:00 113 mm[Hg] [facility] Diastolic blood pressure 2023-02-17 16:20:00 65 mm[Hg] [facility] Heart rate 2023-02-17 16:20:00 65 /min [facility] Body temperature 2023-02-17 16:20:00 36.83 Latanya [facility] Respiratory rate 2023-02-17 16:20:00 16 /min [facility] Oxygen saturation in Arterial blood by Pulse oximetry 2023-02-17 16:20:00 97 /min [facility] Body weight 2023-02-17 08:50:00 99.973 kg [facility] BMI 2023-02-17 08:50:00 40.31 kg/m2 [facility] Body height 2023-02-16 01:19:00 157.5 cm [facility] Systolic blood pressure 2022-01-10 01:24:00 120 mm[Hg] [facility] Diastolic blood pressure 2022-01-10 01:24:00 76 mm[Hg] [facility] Heart rate 2022-01-10 01:24:00 73 /min [facility] Respiratory rate 2022-01-10 01:24:00 16 /min [facility] Oxygen saturation in Arterial blood by Pulse oximetry 2022-01-10 01:24:00 96 /min [facility] Body weight 2022-01-09 21:39:00 104.327 kg [facility] BMI 2022-01-09 21:39:00 42.07 kg/m2 [facility] Systolic blood pressure 2021-12-14 07:22:00 121 mm[Hg] [facility] [facility] Diastolic blood pressure 2021-12-14 07:22:00 86 mm[Hg] [facility] Heart rate 2021-12-14 07:22:00 80 /min [facility] Respiratory rate 2021-12-14 07:22:00 17 /min [facility] Oxygen saturation in Arterial blood by Pulse oximetry 2021-12-14 07:22:00 96 /min [facility] Body temperature 2021-12-14 03:06:00 36.72 Latanya [facility] Body height 2021-12-14 03:06:00 157.5 cm [facility] Body weight 2021-12-14 03:06:00 95.255 kg [facility] BMI 2021-12-14 03:06:00 38.41 kg/m2 [facility] Systolic blood pressure 2021-11-12 04:15:00 112 mm[Hg] [facility] Diastolic blood pressure 2021-11-12 04:15:00 75 mm[Hg] [facility] Heart rate 2021-11-12 04:15:00 92 /min [facility] Body temperature 2021-11-12 04:15:00 36.44 Latanya [facility] Respiratory rate 2021-11-12 04:15:00 18 /min [facility] Oxygen saturation in Arterial blood by Pulse oximetry 2021-11-12 04:15:00 98 /min [facility] Body height 2021-11-12 00:41:00 157.5 cm [facility] Body weight 2021-11-12 00:41:00 95.255 kg [facility] BMI 2021-11-12 00:41:00 38.41 kg/m2 [facility] Systolic blood pressure 2021-09-12 01:31:00 142 mm[Hg] [facility] Diastolic blood pressure 2021-09-12 01:31:00 80 mm[Hg] [facility] Heart rate 2021-09-12 01:31:00 78 /min [facility] Body temperature 2021-09-12 01:31:00 36.72 Latanya [facility] Respiratory rate 2021-09-12 01:31:00 18 /min [facility] Body height 2021-09-12 01:31:00 157.5 cm [facility] Body weight 2021-09-12 01:31:00 99.791 kg [facility] BMI 2021-09-12 01:31:00 40.24 kg/m2 [facility] Oxygen saturation in Arterial blood by Pulse oximetry 2021-09-12 01:31:00 97 /min [facility] Systolic blood pressure 2021-08-15 08:20:00 120 mm[Hg] [facility] Diastolic blood pressure 2021-08-15 08:20:00 74 mm[Hg] [facility] Heart rate 2021-08-15 08:20:00 69 /min [facility] Respiratory rate 2021-08-15 08:20:00 20 /min [facility] Oxygen saturation in Arterial blood by Pulse oximetry 2021-08-15 08:20:00 96 /min [facility] Body temperature 2021-08-15 05:34:00 36.22 Latanya [facility] Body height 2021-08-15 05:34:00 157.5 cm [facility] Body weight 2021-08-15 05:34:00 99.791 kg [facility] BMI 2021-08-15 05:34:00 40.24 kg/m2 [facility] Systolic blood pressure 2021-05-28 10:00:00 122 mm[Hg] [facility] Diastolic blood pressure 2021-05-28 10:00:00 78 mm[Hg] [facility] Heart rate 2021-05-28 10:00:00 75 /min [facility] Respiratory rate 2021-05-28 10:00:00 20 /min [facility] Oxygen saturation in Arterial blood by Pulse oximetry 2021-05-28 10:00:00 99 /min [facility] Body temperature 2021-05-28 05:21:00 36.11 Latanya [facility] Body height 2021-05-28 05:21:00 157.5 cm [facility] Body weight 2021-05-28 05:21:00 99.791 kg [facility] BMI 2021-05-28 05:21:00 40.24 kg/m2 [facility] Systolic blood pressure 2021-04-08 21:55:00 110 mm[Hg] [facility] Diastolic blood pressure 2021-04-08 21:55:00 80 mm[Hg] [facility] Heart rate 2021-04-08 21:55:00 70 /min [facility] Body temperature 2021-04-08 21:55:00 36.28 Latanya [facility] Respiratory rate 2021-04-08 21:55:00 16 /min [facility] Oxygen saturation in Arterial blood by Pulse oximetry 2021-04-08 21:55:00 94 /min [facility] Body height 2021-04-08 03:00:00 157.5 cm [facility] Body weight 2021-04-08 03:00:00 105.688 kg [facility] BMI 2021-04-08 03:00:00 42.62 kg/m2 [facility] Systolic blood pressure 2021-01-12 09:00:00 147 mm[Hg] [facility] Diastolic blood pressure 2021-01-12 09:00:00 71 mm[Hg] [facility] Heart rate 2021-01-12 09:00:00 103 /min [facility] Respiratory rate 2021-01-12 09:00:00 18 /min [facility] Oxygen saturation in Arterial blood by Pulse oximetry 2021-01-12 09:00:00 97 /min [facility] Body temperature 2021-01-12 07:48:00 37.06 Latanya [facility] Body height 2021-01-12 07:48:00 157.5 cm [facility] Body weight 2021-01-12 07:48:00 102.513 kg [facility] BMI 2021-01-12 07:48:00 41.34 kg/m2 [facility] Systolic blood pressure 2020-12-11 01:30:00 136 mm[Hg] [facility] Diastolic blood pressure 2020-12-11 01:30:00 88 mm[Hg] [facility] Heart rate 2020-12-11 01:30:00 99 /min [facility] Respiratory rate 2020-12-11 01:30:00 28 /min [facility] Oxygen saturation in Arterial blood by Pulse oximetry 2020-12-11 01:30:00 97 /min [facility] Body temperature 2020-12-10 22:11:00 36.78 Latanya [facility] Body weight 2020-12-10 22:11:00 99.791 kg [facility] BMI 2020-12-10 22:11:00 40.24 kg/m2 [facility] Systolic blood pressure 2020-12-04 21:30:00 126 mm[Hg] [facility] Diastolic blood pressure 2020-12-04 21:30:00 79 mm[Hg] [facility] Heart rate 2020-12-04 21:30:00 91 /min [facility] Respiratory rate 2020-12-04 21:30:00 20 /min [facility] Oxygen saturation in Arterial blood by Pulse oximetry 2020-12-04 21:30:00 96 /min [facility] Body temperature 2020-12-04 19:49:00 37.06 Latanya [facility] Body height 2020-12-04 19:49:00 157.5 cm [facility] Body weight 2020-12-04 19:49:00 99.791 kg [facility] BMI 2020-12-04 19:49:00 40.24 kg/m2 [facility] Systolic blood pressure 2020-11-04 01:42:00 142 mm[Hg] [facility] Diastolic blood pressure 2020-11-04 01:42:00 100 mm[Hg] [facility] Heart rate 2020-11-04 01:42:00 109 /min [facility] Body temperature 2020-11-04 01:42:00 36.78 Latanya [facility] Respiratory rate 2020-11-04 01:42:00 20 /min [facility] Body weight 2020-11-04 01:42:00 99.791 kg [facility] BMI 2020-11-04 01:42:00 40.24 kg/m2 [facility] Oxygen saturation in Arterial blood by Pulse oximetry 2020-11-04 01:42:00 98 /min [facility] Systolic blood pressure 2020-09-17 15:52:00 138 mm[Hg] [facility] Diastolic blood pressure 2020-09-17 15:52:00 94 mm[Hg] [facility] Heart rate 2020-09-17 15:52:00 98 /min [facility] Body temperature 2020-09-17 15:52:00 36.94 Latanya [facility] Respiratory rate 2020-09-17 15:52:00 20 /min [facility] Body weight 2020-09-17 15:52:00 95.255 kg [facility] BMI 2020-09-17 15:52:00 38.41 kg/m2 [facility] Oxygen saturation in Arterial blood by Pulse oximetry 2020-09-17 15:52:00 97 /min [facility] Systolic blood pressure 2020-09-17 15:52:00 138 mm[Hg] [facility] Diastolic blood pressure 2020-09-17 15:52:00 94 mm[Hg] [facility] Heart rate 2020-09-17 15:52:00 98 /min [facility] Body temperature 2020-09-17 15:52:00 36.94 Latanya [facility] Respiratory rate 2020-09-17 15:52:00 20 /min [facility] Body weight 2020-09-17 15:52:00 95.255 kg [facility] BMI 2020-09-17 15:52:00 38.41 kg/m2 [facility] Oxygen saturation in Arterial blood by Pulse oximetry 2020-09-17 15:52:00 97 /min [facility] Systolic blood pressure 2020-09-07 06:35:00 123 mm[Hg] [facility] Diastolic blood pressure 2020-09-07 06:35:00 56 mm[Hg] [facility] Heart rate 2020-09-07 06:35:00 97 /min [facility] Body temperature 2020-09-07 06:35:00 36.28 Latanya [facility] Respiratory rate 2020-09-07 06:35:00 18 /min [facility] Body weight 2020-09-07 06:35:00 99.791 kg [facility] BMI 2020-09-07 06:35:00 40.24 kg/m2 [facility] Oxygen saturation in Arterial blood by Pulse oximetry 2020-09-07 06:35:00 98 /min [facility] Systolic blood pressure 2020-09-07 06:35:00 123 mm[Hg] [facility] Diastolic blood pressure 2020-09-07 06:35:00 56 mm[Hg] [facility] Heart rate 2020-09-07 06:35:00 97 /min [facility] Body temperature 2020-09-07 06:35:00 36.28 Latanya [facility] Respiratory rate 2020-09-07 06:35:00 18 /min [facility] Body weight 2020-09-07 06:35:00 99.791 kg [facility] BMI 2020-09-07 06:35:00 40.24 kg/m2 [facility] Oxygen saturation in Arterial blood by Pulse oximetry 2020-09-07 06:35:00 98 /min [facility] Systolic blood pressure 2020-08-28 09:00:00 132 mm[Hg] [facility] Diastolic blood pressure 2020-08-28 09:00:00 87 mm[Hg] [facility] Heart rate 2020-08-28 09:00:00 90 /min [facility] Respiratory rate 2020-08-28 09:00:00 20 /min [facility] Oxygen saturation in Arterial blood by Pulse oximetry 2020-08-28 09:00:00 97 /min [facility] Body temperature 2020-08-28 07:59:00 36.72 Latanya [facility] Body height 2020-08-28 07:59:00 157.5 cm [facility] Body weight 2020-08-28 07:59:00 99.791 kg [facility] BMI 2020-08-28 07:59:00 40.24 kg/m2 [facility] Systolic blood pressure 2020-08-28 09:00:00 132 mm[Hg] [facility] Diastolic blood pressure 2020-08-28 09:00:00 87 mm[Hg] [facility] Heart rate 2020-08-28 09:00:00 90 /min [facility] Respiratory rate 2020-08-28 09:00:00 20 /min [facility] Oxygen saturation in Arterial blood by Pulse oximetry 2020-08-28 09:00:00 97 /min [facility] Body temperature 2020-08-28 07:59:00 36.72 Latanya [facility] Body height 2020-08-28 07:59:00 157.5 cm [facility] Body weight 2020-08-28 07:59:00 99.791 kg [facility] BMI 2020-08-28 07:59:00 40.24 kg/m2 [facility] Systolic blood pressure 2020-08-14 19:40:00 135 mm[Hg] [facility] Diastolic blood pressure 2020-08-14 19:40:00 100 mm[Hg] [facility] Heart rate 2020-08-14 19:40:00 68 /min [facility] Body temperature 2020-08-14 19:40:00 37.11 Latanya [facility] Respiratory rate 2020-08-14 19:40:00 19 /min [facility] Oxygen saturation in Arterial blood by Pulse oximetry 2020-08-14 19:40:00 99 /min [facility] Body height 2020-08-14 17:41:00 157.5 cm [facility] Body weight 2020-08-14 17:41:00 99.791 kg [facility] BMI 2020-08-14 17:41:00 40.24 kg/m2 [facility] Systolic blood pressure 2020-08-14 19:40:00 135 mm[Hg] [facility] Diastolic blood pressure 2020-08-14 19:40:00 100 mm[Hg] [facility] Heart rate 2020-08-14 19:40:00 68 /min [facility] Body temperature 2020-08-14 19:40:00 37.11 Latanya [facility] Respiratory rate 2020-08-14 19:40:00 19 /min [facility] Oxygen saturation in Arterial blood by Pulse oximetry 2020-08-14 19:40:00 99 /min [facility] Body height 2020-08-14 17:41:00 157.5 cm [facility] Body weight 2020-08-14 17:41:00 99.791 kg [facility] BMI 2020-08-14 17:41:00 40.24 kg/m2 [facility] Systolic blood pressure 2020-08-11 04:00:00 106 mm[Hg] [facility] Diastolic blood pressure 2020-08-11 04:00:00 92 mm[Hg] [facility] Heart rate 2020-08-11 04:00:00 90 /min [facility] Respiratory rate 2020-08-11 04:00:00 16 /min [facility] Oxygen saturation in Arterial blood by Pulse oximetry 2020-08-11 04:00:00 99 /min [facility] Body temperature 2020-08-11 03:12:56 37.72 Latanya [facility] Body height 2020-08-11 00:19:00 157.5 cm [facility] Body weight 2020-08-11 00:19:00 99.791 kg [facility] BMI 2020-08-11 00:19:00 40.24 kg/m2 [facility] Systolic blood pressure 2020-08-11 04:00:00 106 mm[Hg] [facility] Diastolic blood pressure 2020-08-11 04:00:00 92 mm[Hg] [facility] Heart rate 2020-08-11 04:00:00 90 /min [facility] Respiratory rate 2020-08-11 04:00:00 16 /min [facility] Oxygen saturation in Arterial blood by Pulse oximetry 2020-08-11 04:00:00 99 /min [facility] Body temperature 2020-08-11 03:12:56 37.72 Latanya [facility] Body height 2020-08-11 00:19:00 157.5 cm [facility] Body weight 2020-08-11 00:19:00 99.791 kg [facility] BMI 2020-08-11 00:19:00 40.24 kg/m2 [facility] Systolic blood pressure 2020-08-07 13:16:00 100 mm[Hg] [facility] Diastolic blood pressure 2020-08-07 13:16:00 69 mm[Hg] [facility] Heart rate 2020-08-07 13:16:00 99 /min [facility] Body temperature 2020-08-07 13:16:00 36.67 Latanya [facility] Respiratory rate 2020-08-07 13:16:00 18 /min [facility] Body weight 2020-08-07 13:16:00 95.255 kg [facility] BMI 2020-08-07 13:16:00 38.41 kg/m2 [facility] Oxygen saturation in Arterial blood by Pulse oximetry 2020-08-07 13:16:00 99 /min [facility] Systolic blood pressure 2020-08-07 13:16:00 100 mm[Hg] [facility] Diastolic blood pressure 2020-08-07 13:16:00 69 mm[Hg] [facility] Heart rate 2020-08-07 13:16:00 99 /min [facility] Body temperature 2020-08-07 13:16:00 36.67 Latanya [facility] Respiratory rate 2020-08-07 13:16:00 18 /min [facility] Body weight 2020-08-07 13:16:00 95.255 kg [facility] BMI 2020-08-07 13:16:00 38.41 kg/m2 [facility] Oxygen saturation in Arterial blood by Pulse oximetry 2020-08-07 13:16:00 99 /min [facility] Systolic blood pressure 2020-07-01 02:00:00 136 mm[Hg] [facility] Diastolic blood pressure 2020-07-01 02:00:00 85 mm[Hg] [facility] Heart rate 2020-07-01 02:00:00 73 /min [facility] Respiratory rate 2020-07-01 02:00:00 20 /min [facility] Oxygen saturation in Arterial blood by Pulse oximetry 2020-07-01 02:00:00 97 /min [facility] Body temperature 2020-06-30 23:36:00 36.56 Latanya [facility] Body height 2020-06-30 23:36:00 157.5 cm [facility] Body weight 2020-06-30 23:36:00 95.255 kg [facility] BMI 2020-06-30 23:36:00 38.41 kg/m2 [facility] Systolic blood pressure 2020-07-01 02:00:00 136 mm[Hg] [facility] Diastolic blood pressure 2020-07-01 02:00:00 85 mm[Hg] [facility] Heart rate 2020-07-01 02:00:00 73 /min [facility] Respiratory rate 2020-07-01 02:00:00 20 /min [facility] Oxygen saturation in Arterial blood by Pulse oximetry 2020-07-01 02:00:00 97 /min [facility] Body temperature 2020-06-30 23:36:00 36.56 Latanya [facility] Body height 2020-06-30 23:36:00 157.5 cm [facility] Body weight 2020-06-30 23:36:00 95.255 kg [facility] BMI 2020-06-30 23:36:00 38.41 kg/m2 [facility] Systolic blood pressure 2020-06-28 21:57:00 151 mm[Hg] [facility] Diastolic blood pressure 2020-06-28 21:57:00 88 mm[Hg] [facility] Heart rate 2020-06-28 21:57:00 94 /min [facility] Body temperature 2020-06-28 21:57:00 37.78 Latanya [facility] Respiratory rate 2020-06-28 21:57:00 16 /min [facility] Body height 2020-06-28 21:57:00 157.5 cm [facility] Body weight 2020-06-28 21:57:00 95.255 kg [facility] BMI 2020-06-28 21:57:00 38.41 kg/m2 [facility] Oxygen saturation in Arterial blood by Pulse oximetry 2020-06-28 21:57:00 96 /min [facility] Systolic blood pressure 2020-06-28 21:57:00 151 mm[Hg] [facility] Diastolic blood pressure 2020-06-28 21:57:00 88 mm[Hg] [facility] Heart rate 2020-06-28 21:57:00 94 /min [facility] Body temperature 2020-06-28 21:57:00 37.78 Latanya [facility] Respiratory rate 2020-06-28 21:57:00 16 /min [facility] Body height 2020-06-28 21:57:00 157.5 cm [facility] Body weight 2020-06-28 21:57:00 95.255 kg [facility] BMI 2020-06-28 21:57:00 38.41 kg/m2 [facility] Oxygen saturation in Arterial blood by Pulse oximetry 2020-06-28 21:57:00 96 /min [facility] Systolic blood pressure 2020-06-13 03:40:00 122 mm[Hg] [facility] Diastolic blood pressure 2020-06-13 03:40:00 78 mm[Hg] [facility] Heart rate 2020-06-13 03:40:00 90 /min [facility] Respiratory rate 2020-06-13 03:40:00 18 /min [facility] Oxygen saturation in Arterial blood by Pulse oximetry 2020-06-13 03:40:00 94 /min [facility] Body temperature 2020-06-12 23:39:00 37.22 Latanya [facility] Body weight 2020-06-12 23:39:00 97.07 kg [facility] BMI 2020-06-12 23:39:00 39.14 kg/m2 [facility] Systolic blood pressure 2020-06-13 03:40:00 122 mm[Hg] [facility] Diastolic blood pressure 2020-06-13 03:40:00 78 mm[Hg] [facility] Heart rate 2020-06-13 03:40:00 90 /min [facility] Respiratory rate 2020-06-13 03:40:00 18 /min [facility] Oxygen saturation in Arterial blood by Pulse oximetry 2020-06-13 03:40:00 94 /min [facility] Body temperature 2020-06-12 23:39:00 37.22 Latanya [facility] Body weight 2020-06-12 23:39:00 97.07 kg [facility] BMI 2020-06-12 23:39:00 39.14 kg/m2 [facility] Heart rate 2020-05-17 00:40:00 82 /min [facility] Respiratory rate 2020-05-17 00:40:00 18 /min [facility] Oxygen saturation in Arterial blood by Pulse oximetry 2020-05-17 00:40:00 95 /min [facility] Systolic blood pressure 2020-05-17 00:00:00 137 mm[Hg] [facility] Diastolic blood pressure 2020-05-17 00:00:00 93 mm[Hg] [facility] Body temperature 2020-05-16 23:17:00 37.61 Latanya [facility] Body weight 2020-05-16 23:17:00 97.07 kg [facility] BMI 2020-05-16 23:17:00 39.14 kg/m2 [facility] Heart rate 2020-05-17 00:40:00 82 /min [facility] Respiratory rate 2020-05-17 00:40:00 18 /min [facility] Oxygen saturation in Arterial blood by Pulse oximetry 2020-05-17 00:40:00 95 /min [facility] Systolic blood pressure 2020-05-17 00:00:00 137 mm[Hg] [facility] Diastolic blood pressure 2020-05-17 00:00:00 93 mm[Hg] [facility] Body temperature 2020-05-16 23:17:00 37.61 Latanya [facility] Body weight 2020-05-16 23:17:00 97.07 kg [facility] BMI 2020-05-16 23:17:00 39.14 kg/m2 [facility] Systolic blood pressure 2020-05-15 08:50:00 131 mm[Hg] [facility] Diastolic blood pressure 2020-05-15 08:50:00 80 mm[Hg] [facility] Heart rate 2020-05-15 08:50:00 70 /min [facility] Respiratory rate 2020-05-15 08:50:00 18 /min [facility] Oxygen saturation in Arterial blood by Pulse oximetry 2020-05-15 08:50:00 97 /min [facility] Body temperature 2020-05-15 05:29:00 36.44 Latanya [facility] Body height 2020-05-15 05:29:00 157.5 cm [facility] Body weight 2020-05-15 05:29:00 97.07 kg Simultaneous filing. User may not have seen previous data. [facility] BMI 2020-05-15 05:29:00 39.14 kg/m2 [facility] Systolic blood pressure 2020-05-15 08:50:00 131 mm[Hg] [facility] Diastolic blood pressure 2020-05-15 08:50:00 80 mm[Hg] [facility] Heart rate 2020-05-15 08:50:00 70 /min [facility] Respiratory rate 2020-05-15 08:50:00 18 /min [facility] Oxygen saturation in Arterial blood by Pulse oximetry 2020-05-15 08:50:00 97 /min [facility] Body temperature 2020-05-15 05:29:00 36.44 Latanya [facility] Body height 2020-05-15 05:29:00 157.5 cm [facility] Body weight 2020-05-15 05:29:00 97.07 kg Simultaneous filing. User may not have seen previous data. [facility] BMI 2020-05-15 05:29:00 39.14 kg/m2 [facility] Procedures Procedure Date / Time Performed Performing Clinician Source CT ABDOMEN PELVIS W CONTRAST 2023-10-11 04:08:24 Olivia Garcia [facility] POCT TEST 2023-10-11 03:40:00 Olivia Garcia [facility] LIPASE 2023-10-11 03:25:00 Olivia Garcia [facility] COMP. METABOLIC PANEL ([id number]) 2023-10-11 03:25:00 Olivia Garcia [facility] CBC WITH DIFF 2023-10-11 03:25:00 Olivia Garcia [facility] URINALYSIS 2023-10-11 03:25:00 Olivia Garcia [facility] XR KUB 2023-07-02 03:34:07 Roberto Richards [facility] POCT TEST 2023-07-02 02:30:00 Alberta Richards [facility] LIPASE 2023-07-02 02:05:00 Roberto Richards [facility] COMP. METABOLIC PANEL ([id number]) 2023-07-02 02:05:00 Roberto Richards [facility] CBC WITH DIFF 2023-07-02 02:05:00 Roberto Richards [facility] URINALYSIS 2023-07-02 02:05:00 Roberto Richards [facility] URINE DRUG (IMMUNOASSAY) - COMPREHENSIVE DRUG SCREEN W/O REFLEX 2023-07-02 02:05:00 Roberto Richards [facility] CONSENT/REFUSAL FOR DIAGNOSIS AND TREATMENT 2023-07-02 01:43:05 Doctor Unassigned, [place] [facility] LIPASE 2023-05-09 22:47:00 Narayan Narvaez [facility] COMP. METABOLIC PANEL ([id number]) 2023-05-09 22:47:00 Narayan Narvaez [facility] CBC WITH DIFF 2023-05-09 22:47:00 Narayan Narvaez [facility] CONSENT/REFUSAL FOR DIAGNOSIS AND TREATMENT 2023-05-09 22:32:48 Doctor Unassigned, [place] [facility] CT ABDOMEN PELVIS W CONTRAST 2023-04-30 23:47:56 Narayan Narvaez [facility] COMP. METABOLIC PANEL ([id number]) 2023-04-30 23:08:00 Narayan Narvaez [facility] CBC WITH DIFF 2023-04-30 23:08:00 Narayan Narvaez [facility] POCT TEST 2023-04-30 22:59:00 Jaquan Narvaez [facility] URINALYSIS 2023-04-30 22:57:00 [facility] CONSENT/REFUSAL FOR DIAGNOSIS AND TREATMENT 2023-04-30 22:14:38 Doctor Unassigned, [place] [facility] XR ABDOMEN ACUTE SERIES 2023-04-17 02:13:44 Do minal Richards [facility] POCT TEST 2023-04-17 02:11:00 Alberta Richards [facility] LIPASE 2023-04-17 02:04:00 Roberto Richards [facility] TROPONIN I 2023-04-17 02:04:00 Roberto Richards [facility] COMP. METABOLIC PANEL ([id number]) 2023-04-17 02:04:00 Robetro Richards [facility] CBC WITH DIFF 2023-04-17 02:04:00 [facility] PROTHROMBIN TIME / INR 2023-04-17 02:04:00 Richard Richards [facility] ACTIVATED PARTIAL THRMPLAS MARCIO 2023-04-17 02:04:00 Roberto Richards [facility] URINALYSIS 2023-04-17 02:04:00 Roberto Richards [facility] N-TERMINAL PRO-BNP 2023-04-17 02:04:00 Roberto Richadrs [facility] URINE DRUG (IMMUNOASSAY) - COMPREHENSIVE DRUG SCREEN W/O REFLEX 2023-04-17 02:04:00 Roberto Richards [facility] CONSENT/REFUSAL FOR DIAGNOSIS AND TREATMENT 2023-04-17 01:22:36 Doctor Unassigned, [place] [facility] URINALYSIS 2023-04-09 01:02:00 Saleem Edward [facility] LIPASE 2023-04-08 23:15:00 Saleem Edward [facility] MAGNESIUM 2023-04-08 23:15:00 Saleem Edward [facility] TROPONIN I 2023-04-08 23:15:00 Saleem Edward [facility] COMP. METABOLIC PANEL ([id number]) 2023-04-08 23:15:00 Saleem Edward [facility] CBC WITH DIFF 2023-04-08 23:15:00 Saleem Edward [facility] CONSENT/REFUSAL FOR DIAGNOSIS AND TREATMENT 2023-04-08 21:57:42 Doctor Unassigned, [place] [facility] CT ABDOMEN PELVIS W CONTRAST 2023-03-10 03:38:58 Roberto Richards [facility] POCT TEST 2023-03-10 02:51:00 Alberta Richards [facility] URINALYSIS 2023-03-10 01:49:00 Roberto Richards [facility] LIPASE 2023-03-10 01:46:00 Roberto Richards [facility] COMP. METABOLIC PANEL ([id number]) 2023-03-10 01:46:00 Roberto Richards [facility] CBC WITH DIFF 2023-03-10 01:46:00 Roberto Richards [facility] CONSENT/REFUSAL FOR DIAGNOSIS AND TREATMENT 2023-03-10 01:36:24 Doctor Unassigned, [place] [facility] CONSENT/REFUSAL FOR DIAGNOSIS AND TREATMENT 2023-03-10 01:14:40 Doctor Unassigned, [place] [facility] CT ABDOMEN PELVIS W CONTRAST 2023-03-02 05:16:35 Olivia Garcia [facility] POCT TEST 2023-03-02 03:26:00 Olivia Garcia [facility] LIPASE 2023-03-02 03:23:00 Olivia Garcia [facility] COMP. METABOLIC PANEL ([id number]) 2023-03-02 03:23:00 Olivia Garcia [facility] CBC WITH DIFF 2023-03-02 03:23:00 Olivia Garcia [facility] URINALYSIS 2023-03-02 03:23:00 Olivia Garcia [facility] CONSENT/REFUSAL FOR DIAGNOSIS AND TREATMENT 2023-03-02 00:22:44 Doctor Unassigned, [place] [facility] CONSENT/REFUSAL FOR DIAGNOSIS AND TREATMENT 2023-02-18 03:44:46 Doctor Unassigned, [place] [facility] LIPASE 2023-02-17 09:28:00 Jesús Montero [facility] HEPATIC FUNCTION PANEL ([id number]) (ALB,T.PRO,BILI T,BU/BC,ALT,AST,ALK PHOS) 2023-02-17 09:28:00 Kylah [facility] BASIC METABOLIC PANEL (NA, K, CL, CO2, GLUCOSE, BUN, CREATININE, CA) 2023-02-17 09:28:00 [facility] 2023-02-17 09:28:00 Kylah [facility] LIPASE 2023-02-16 18:24:00 Kylah Jesús [facility] HEPATIC FUNCTION PANEL ([id number]) (ALB,T.PRO,BILI T,BU/BC,ALT,AST,ALK PHOS) 2023-02-16 18:24:00 Kylah [facility] BASIC METABOLIC PANEL (NA, K, CL, CO2, GLUCOSE, BUN, CREATININE, CA) 2023-02-16 18:24:00 Kylah [facility] CBC WITH DIFF 2023-02-16 18:23:[address] [facility] CT ABDOMEN PELVIS W CONTRAST 2023-02-15 23:29:00 Leeanne Wise [facility] LIPASE 2023-02-15 21:45:00 Leeanne Wise [facility] COMP. METABOLIC PANEL ([id number]) 2023-02-15 21:45:00 Leeanne Wise [facility] CBC WITH DIFF 2023-02-15 21:45:00 Leeanne Wise [facility] D-DIMER 2023-02-15 19:55:00 Leeanne Wise [facility] URINALYSIS 2023-02-15 19:50:00 Leeanne Wise [facility] RAPID INFLUENZA A/B 2023-02-15 19:50:00 Leeanne Wise [facility] COVID-19 (ID NOW RAPID TESTING) 2023-02-15 19:50:00 Leeanne Wise [facility] XR CHEST 1 VW 2023-02-15 19:38:00 Leeanne Wise [facility] ASSIGNMENT OF BENEFITS 2023-02-15 19:26:58 Docto r Unassigned, [place] [facility] HB ECG ROUTINE & RHYTHM STRIP 2023-02-15 19:07:40 Leeanne Wise [facility] NOTICE OF PRIVACY PRACTICES 2023-02-15 18:24:07 Doctor Unassigned, [place] [facility] CONSENT/REFUSAL FOR DIAGNOSIS AND TREATMENT 2023-02-15 18:23:04 Doctor Unassigned, [place] [facility] TROPONIN I 2022-01-10 00:32:00 Melida Lonogria [facility] TROPONIN I 2022-01-09 22:17:00 Melida Longoria [facility] BASIC METABOLIC PANEL (NA, K, CL, CO2, GLUCOSE, BUN, CREATININE, CA) 2022-01-09 22:17:00 Melida Longoria [facility] CBC WITH DIFF 2022-01-09 22:17:00 Melida Longoria [facility] N-TERMINAL PRO-BNP 2022-01-09 22:17:00 Melida Longorai [facility] XR CHEST 1 VW 2022-01-09 22:11:00 Melida Longoria [facility] CONSENT/REFUSAL FOR DIAGNOSIS AND TREATMENT 2022-01-09 21:34:15 Doctor Unassigned, [place] [facility] TROPONIN I 2021-12-14 05:39:00 Wil Mcqueen [facility] XR CHEST 1 VW 2021-12-14 04:39:00 Wil Mcqueen [facility] POCT TEST 2021-12-14 04:20:00 Wil Mcqueen [facility] URINALYSIS 2021-12-14 03:57:00 Wil Mcqueen [facility] LIPASE 2021-12-14 03:43:00 Wil Mcqueen [facility] TROPONIN I 2021-12-14 03:43:00 Wil Mcqueen [facility] FREE T4 2021-12-14 03:43:00 [facility] THYROID STIMULATING HORMONE 2021-12-14 03:43:00 Wil Mcqueen [facility] COMP. METABOLIC PANEL ([id number]) 2021-12-14 03:43:00 Wil Mcqueen [facility] CBC WITH DIFF 2021-12-14 03:43:00 Wil Mcqueen [facility] FREE T3 2021-12-14 03:43:00 [facility] CONSENT/REFUSAL FOR DIAGNOSIS AND TREATMENT 2021-12-14 02:58:21 Doctor Unassigned, [place] [facility] TROPONIN I 2021-11-12 03:04:00 Dee Wang [facility] POCT TEST 2021-11-12 02:56:00 Tra Wang [facility] URINE DRUG (IMMUNOASSAY) - COMPREHENSIVE DRUG SCREEN 2021-11-12 02:30:00 Dee Wang [facility] URINALYSIS 2021-11-12 02:30:00 Dee Wang [facility] XR CHEST 2 VW 2021-11-12 01:45:03 Dee Wang [facility] LIPASE 2021-11-12 01:34:00 Dee Wang [facility] TROPONIN I 2021-11-12 01:34:00 Dee Wang [facility] COMP. METABOLIC PANEL ([id number]) 2021-11-12 01:34:00 Dee Wang [facility] CBC WITH DIFF 2021-11-12 01:34:00 Dee Wang [facility] N-TERMINAL PRO-BNP 2021-11-12 01:34:00 Mckinley Wang [facility] CONSENT/REFUSAL FOR DIAGNOSIS AND TREATMENT 2021-11-12 00:36:34 Doctor Unassigned, [place] [facility] CT ABDOMEN PELVIS W CONTRAST 2021-09-12 02:49:43 Dee Wang [facility] COVID-19 (ID NOW RAPID TESTING) 2021-09-12 02:23:00 Dee Wang [facility] POCT TEST 2021-09-12 02:21:00 Tra Wang [facility] POCT TEST 2021-09-12 01:45:00 Olivia Garcia [facility] URINALYSIS 2021-09-12 01:43:00 Olivia Garcia [facility] LIPASE 2021-09-12 01:40:00 Olivia Garcia [facility] COMP. METABOLIC PANEL ([id number]) 2021-09-12 01:40:00 Olivia Garcia [facility] CBC WITH DIFF 2021-09-12 01:40:00 Olivia Garcia [facility] CONSENT/REFUSAL FOR DIAGNOSIS AND TREATMENT 2021-09-12 01:26:55 Doctor Unassigned, [place] [facility] XR LUMBAR SPINE 1 VW 2021-08-15 07:03:00 Angeles Garcia i [facility] URINALYSIS 2021-08-15 06:35:00 Olivia Garcia [facility] POCT TEST 2021-08-15 06:35:00 Olivia Garcia [facility] NOTICE OF PRIVACY PRACTICES 2021-08-15 06:01:56 Doctor Unassigned, [place] [facility] CONSENT/REFUSAL FOR DIAGNOSIS AND TREATMENT 2021-08-15 05:25:54 Doctor Unassigned, [place] [facility] TROPONIN I 2021-05-28 07:50:00 Cem Choi [facility] D-DIMER 2021-05-28 07:05:00 Cem Choi [facility] XR CHEST 2 VW 2021-05-28 [facility]46[facility] 2021-05-28 05:32:00 [facility] LIPASE 2021-05-28 05:29:00 AntonCem majano [facility] TROPONIN I 2021-05-28 05:29:00 Cem Choi [facility] COMP. METABOLIC PANEL ([id number]) 2021-05-28 05:29[facility] 2021-05-28 05:29:00 Cem Choi [facility] N-TERMINAL PRO-BNP 2021-05-28 05:29:00 AntonCem majano [facility] COVID-19 (ID NOW RAPID TESTING) 2021-05-28 05:29:00 [facility] TROPONIN I 2021-04-08 10:01:00 Brittni Romero [facility] BASIC METABOLIC PANEL (NA, K, CL, CO2, GLUCOSE, BUN, CREATININE, CA) 2021-04-08 10:01:00 Brittni Romero [facility] CBC WITH DIFF 2021-04-08 10:01:00 Brittni Romero [facility] TROPONIN I 2021-04-08 04:12:00 Brittni Romero [facility] XR CHEST 1 VW 2021-04-07 22:33:33 Roberto Richards [facility] LIPASE 2021-04-07 21:52:00 Roberto Richards [facility] MAGNESIUM 2021-04-07 21:52:00 Brittni Romero [facility] TROPONIN I 2021-04-07 21:52:00 Roberto Richards [facility] THYROID STIMULATING HORMONE 2021-04-07 21:52:00 Brittni Romero [facility] COMP. METABOLIC PANEL ([id number]) 2021-04-07 21:52:00 Roberto Richards [facility] LIPID PANEL ([id number])(TOTAL CHOLESTEROL, TRIGLYCERIDES, HDL) 2021-04-07 21:52:00 Brittni Romero [facility] CBC WITH DIFF 2021-04-07 21:52:00 Roberto Richards [facility] GLYCOSYLATED HEMOGLOBIN (A1C) 2021-04-07 21:52:00 Brittni Romero [facility] PROTHROMBIN TIME / INR 2021-04-07 21:52:00 Richard Richards [facility] ACTIVATED PARTIAL THRMPLAS MARCIO 2021-04-07 21:52:00 Roberto Richards [facility] N-TERMINAL PRO-BNP 2021-04-07 21:52:00 Roberto Richards [facility] COVID-19 (ID NOW RAPID TESTING) 2021-04-07 21:51:00 Roberto Richards [facility] HB ECG ROUTINE & RHYTHM STRIP 2021-04-07 21:38:41 Maurice [facility] CONSENT/REFUSAL FOR DIAGNOSIS AND TREATMENT 2021-04-07 21:17:47 Doctor Unassigned, [place] [facility] CT ABDOMEN PELVIS WO CONTRAST 2021-01-12 08:10:17 Narayan Narvaez [facility] POCT TEST 2021-01-12 08:02:00 Jaquan Narvaez [facility] URINALYSIS 2021-01-12 07:58:00 Singer [facility] COMP. METABOLIC PANEL ([id number]) 2021-01-12 07:56:00 Narayan Narvaez [facility] CBC WITH DIFF 2021-01-12 07:56:00 Singer [facility] TROPONIN I 2020-12-11 00:47:00 Bal Hassan [facility] XR CHEST 1 VW 2020-12-10 22:40:57 Bal Hassan [facility] POCT TEST 2020-12-10 22:32:00 Suzanna Hassan [facility] URINALYSIS 2020-12-10 22:30:00 Bal Hassan [facility] LIPASE 2020-12-10 22:24:00 Bal Hassan [facility] TROPONIN I 2020-12-10 22:24:00 Bal Hassan [facility] HEPATIC FUNCTION PANEL ([id number]) (ALB,T.PRO,BILI T,BU/BC,ALT,AST,ALK PHOS) 2020-12-10 22:24:00 Bal Hassan [facility] BASIC METABOLIC PANEL (NA, K, CL, CO2, GLUCOSE, BUN, CREATININE, CA) 2020-12-10 22:24:00 Bal Hassan [facility] CBC WITH DIFF 2020-12-10 22:24:00 Bal Hassan [facility] D-DIMER 2020-12-10 22:24:00 Bal Hassan [facility] N-TERMINAL PRO-BNP 2020-12-10 22:24:00 Mirtha Hassan [facility] POCT TEST 2020-12-04 21:18:00 [facility] 2020-12-04 21:17:00 [facility] LIPASE 2020-12-04 20:20:00 [facility] TROPONIN I 2020-12-04 20:20:00 [facility] HEPATIC FUNCTION PANEL (87198) (ALB,T.PRO,BILI T,BU/BC,ALT,AST,ALK PHOS) 2020-12-04 20:20:00 [facility] BASIC METABOLIC PANEL (NA, K, CL, CO2, GLUCOSE, BUN, CREATININE, CA) 2020-12-04 20:20:00 [facility] CBC WITH DIFF 2020-12-04 20:20:00 Tremaine Becerra [facility] XR CHEST 1 VW 2020-12-04 20:16:54 [facility] XR ANKLE 3+ VW LEFT 2020-12-04 20:16:54 Tremaine Becerra [facility] CONSENT/REFUSAL FOR DIAGNOSIS AND TREATMENT 2020-12-04 19:43:45 Doctor Unassigned, [place] [facility] XR CHEST 1 VW 2020-11-04 02:24:02 Olivia Garcia [facility] URINE DRUG (IMMUNOASSAY) - 4 ER PANEL 2020-11-04 02:19:00 Olivia Garcia [facility] URINALYSIS 2020-11-04 02:19:00 Olivai Garcia [facility] LIPASE 2020-11-04 02:16:00 Olivia Garcia [facility] TROPONIN I 2020-11-04 02:16:00 Olivia Garcia [facility] COMP. METABOLIC PANEL (33052) 2020-11-04 02:16:00 Olivia Garcia [facility] CBC WITH DIFF 2020-11-04 02:16:00 Olivia Garcia [facility] PROTHROMBIN TIME / INR 2020-11-04 02:16:00 Lucia Garcia [facility] ACTIVATED PARTIAL THRMPLAS MARCIO 2020-11-04 02:16:00 Olivia Garcia [facility] CONSENT/REFUSAL FOR DIAGNOSIS AND TREATMENT 2020-11-04 01:11:16 Doctor Unassigned, [place] [facility] XR CHEST 1 VW 2020-09-17 17:32:21 Leeanne Wise [facility] RAPID STREP SCREEN FOR GROUP A 2020-09-17 16:31:00 Leeanne Wise [facility] COVID-19 (ID NOW RAPID TESTING) 2020-09-17 16:31:00 Leeanne Wise [facility] NOTICE OF PRIVACY PRACTICES 2020-09-17 15:47:38 Doctor Unassigned, [place] [facility] CONSENT/REFUSAL FOR DIAGNOSIS AND TREATMENT 2020-09-17 15:47:07 Doctor Unassigned, [place] [facility] XR FOREARM 2 VW LEFT 2020-09-07 06:59:53 Saleem Edward [facility] XR HAND 3+ VW LEFT 2020-09-07 06:59:53 Saleem Edward [facility] NOTICE OF PRIVACY PRACTICES 2020-09-07 06:06:09 Doctor Unassigned, [place] [facility] CONSENT/REFUSAL FOR DIAGNOSIS AND TREATMENT 2020-09-07 06:03:10 Doctor Unassigned, [place] [facility] CT ABDOMEN PELVIS W CONTRAST 2020-08-28 09:16:08 Olivia Garcia [facility] POCT TEST 2020-08-28 08:45:00 Olivia Garcia [facility] URINALYSIS 2020-08-28 08:43:00 Olivia Garcia [facility] LIPASE 2020-08-28 08:09:00 [facility] COMP. METABOLIC PANEL ([id number]) 2020-08-28 08:09:00 Olivia Garcia [facility] CBC WITH DIFF 2020-08-28 08:09:00 [facility] 1 VW 2020-08-14 18:10:03 Best Taylor [facility] LIPASE 2020-08-14 17:58:00 Best Taylor [facility] TROPONIN I 2020-08-14 17:58:00 [facility] COMP. METABOLIC PANEL (11037) 2020-08-14 17:58:00 Best Taylor [facility] CBC WITH DIFF 2020-08-14 17:58:00 Best Taylor [facility] URINALYSIS 2020-08-14 17:58:00 [facility] LACTIC ACID WHOLE BLOOD 2020-08-14 17:58:00 Sophie Taylor [facility] ADC / LCC - DRUG SCREEN TRIAGE 2020-08-14 17:58:00 Best Taylor [facility] CONSENT/REFUSAL FOR DIAGNOSIS AND TREATMENT 2020-08-14 17:33:16 Doctor Unassigned, [place] [facility] CT ABDOMEN PELVIS WO CONTRAST 2020-08-11 04:11:07 Best Taylor [facility] XR CHEST 1 VW 2020-08-11 03:56:48 Best Taylor [facility] POCT TEST 2020-08-11 03:10:00 Best Taylor [facility] BLOOD CULTURE SCREEN 2020-08-11 02:01:00 Best Taylor [facility] BLOOD CULTURE SCREEN 2020-08-11 01:45:00 Best Taylor [facility] LIPASE 2020-08-11 01:45:00 Best Taylor [facility] TROPONIN I 2020-08-11 01:45:00 Best Taylor [facility] HEPATIC FUNCTION PANEL (63726) (ALB,T.PRO,BILI T,BU/BC,ALT,AST,ALK PHOS) 2020-08-11 01:45:00 Best Taylor [facility] BASIC METABOLIC PANEL (NA, K, CL, CO2, GLUCOSE, BUN, CREATININE, CA) 2020-08-11 01:45:00 Best Taylor [facility] CBC WITH DIFF 2020-08-11 01:45:00 Best Taylor [facility] URINALYSIS 2020-08-11 01:45:00 Best Taylor [facility] LACTIC ACID WHOLE BLOOD 2020-08-11 01:45:00 Sophie Taylor [facility] COVID-19 (ID NOW RAPID TESTING) 2020-08-11 01:45:00 Best Taylor [facility] CONSENT/REFUSAL FOR DIAGNOSIS AND TREATMENT 2020-08-11 00:12:54 Doctor Unassigned, [place] [facility] XR FOREARM 2 VW LEFT 2020-08-07 14:03:06 Unique Richards [facility] COVID-19 (ID NOW RAPID TESTING) 2020-08-07 13:35:00 Roberto Richards [facility] NOTICE OF PRIVACY PRACTICES 2020-08-07 13:13:25 Doctor Unassigned, [place] [facility] CONSENT/REFUSAL FOR DIAGNOSIS AND TREATMENT 2020-08-07 13:11:06 Doctor Unassigned, [place] [facility] CONSENT/REFUSAL FOR DIAGNOSIS AND TREATMENT 2020-08-07 13:10:57 Doctor Unassigned, [place] [facility] TROPONIN I 2020-07-01 02:03:00 Abdias Robertson [facility] POCT TEST 2020-07-01 00:51:00 Abdias Robertson [facility] URINALYSIS 2020-07-01 00:48:00 Abdias Robertson [facility] CBC WITH DIFF 2020-07-01 00:12:00 [facility]as [facility] EXTRA TUBE LT. BLUE 2020-07-01 00:12:00 Abdias Robertson [facility] LIPASE 2020-07-01 00:09:00 [facility] TROPONIN I 2020-07-01 00:09:00 Abdias Robertson [facility] BASIC METABOLIC PANEL (NA, K, CL, CO2, GLUCOSE, BUN, CREATININE, CA) 2020-07-01 00:09:00 Abdias Robertson [facility] ADC,CLC OR LCC ONLY - INFLUENZA A & B DIRECT ANTIGEN 2020-07-01 00:09:00 [facility] N-TERMINAL PRO-BNP 2020-07-01 00:09:00 Abdias Robertson [facility] XR CHEST 1 VW 2020-07-01 00:07:07 Abdias Robertson [facility] NOTICE OF PRIVACY PRACTICES 2020-06-30 23:27:46 Doctor Unassigned, [place] [facility] CT CERVICAL SPINE WO CONTRAST 2020-06-28 23:12:00 Narayan Narvaez [facility] CONSENT/REFUSAL FOR DIAGNOSIS AND TREATMENT 2020-06-28 21:52:44 Doctor Unassigned, [place] [facility] POCT TEST 2020-06-13 01:50:00 Leeanne Wise [facility] XR CHEST 1 VW 2020-06-13 01:18:17 Leeanne Wise [facility] URINALYSIS 2020-06-13 00:34:00 Leeanne Wise [facility] COVID-19 (ID NOW RAPID TESTING) 2020-06-13 00:34:00 Leeanne Wise [facility] LIPASE 2020-06-13 00:33:00 Mehnaz [facility] Kristin [facility] TROPONIN I 2020-06-13 00:33:00 Mehnaz [facility] Kristin [facility] HEPATIC FUNCTION PANEL (46869) (ALB,T.PRO,BILI T,BU/BC,ALT,AST,ALK PHOS) 2020-06-13 00:33:00 Leeanne Wise [facility] BASIC METABOLIC PANEL (NA, K, CL, CO2, GLUCOSE, BUN, CREATININE, CA) 2020-06-13 00:33:00 Candi Wiseala Kristin [facility] CBC WITH DIFF 2020-06-13 00:33:00 Leeanne Wise [facility] D-DIMER 2020-06-13 00:33:00 Leeanne Wise [facility] CONSENT/REFUSAL FOR DIAGNOSIS AND TREATMENT 2020-06-12 23:27:48 Doctor Unassigned, [place] [facility] COVID-19 (ID NOW RAPID TESTING) 2020-05-16 23:50:00 Bushra iRos [facility] LIPASE 2020-05-16 23:21:00 [facility] FUNCTION [facility]EL (31351) (ALB,T.PRO,BILI T,BU/BC,ALT,AST,ALK PHOS) 2020-05-16 23:21:00 Bushra Rios [facility] BASIC METABOLIC PANEL (NA, K, CL, CO2, GLUCOSE, BUN, CREATININE, CA) 2020-05-16 23:21:00 Bushra Rios [facility] CBC WITH DIFF 2020-05-16 23:21:00 Bush[facility]ios [facility] ACETAMINOPHEN 2020-05-15 07:42:00 Roberto Richards [facility] CT ABDOMEN PELVIS W CONTRAST 2020-05-15 06:56:53 Roberto Richards [facility] CT HEAD WO CONTRAST 2020-05-15 06:56:27 Alberta Richards [facility] POCT TEST 2020-05-15 05:53:00 Alberta Richards [facility] LIPASE 2020-05-15 05:52:00 Roberto Rcihards [facility] HEPATIC FUNCTION PANEL ([id number]) (ALB,T.PRO,BILI T,BU/BC,ALT,AST,ALK PHOS) 2020-05-15 05:52:00 Roberto Richards [facility] BASIC METABOLIC PANEL (NA, K, CL, CO2, GLUCOSE, BUN, CREATININE, CA) 2020-05-15 05:52:00 Roberto Richards [facility] ETHANOL 2020-05-15 05:52:00 Roberto Richards [facility] CBC WITH DIFF 2020-05-15 05:52:00 Roberto Richards [facility] PROTHROMBIN TIME / INR 2020-05-15 05:52:00 Richard Richards [facility] ACTIVATED PARTIAL THRMPLAS MARCIO 2020-05-15 05:52:00 Roberto Richards [facility] URINALYSIS 2020-05-15 05:52:00 [facility] ADC / LCC - DRUG SCREEN TRIAGE 2020-05-15 05:52:00 Roberto Richards [facility] NOTICE OF PRIVACY PRACTICES 2020-05-15 05:12:38 Doctor Unassigned, [place] [facility] CONSENT/REFUSAL FOR DIAGNOSIS AND TREATMENT 2020-05-15 05:12:26 Doctor Unassigned, [place] [facility] Encounters Start Date/Time End Date/Time Encounter Type Admission Type Attending Critical Access [facility] Care Facility Care Department Encounter ID Source 2024-04-22 09:15:00 2024-04-22 09:15:00 Outpatient FARTUN GILLESPIE [id number] Kellee Buckley 2024-01-14 09:30:00 2024-01-14 09:30:00 Outpatient JOANNE MONTES [id number] Kellee Buckley 2024-01-02 14:00:00 2024-01-02 14:00:00 Outpatient JOANNE MONTES KELLEE [id number] Kellee Buckley 2023-12-13 09:30:00 2023-12-13 09:30:00 Outpatient JYOTI, JOANNE DORMAN KELLEE [id number] Kellee Buckley 2023-12-09 00:00:00 2023-12-09 00:00:00 Outpatient JOANNE MONTES KELLEE [id number] [facility] 2023-12-05 00:00:00 2023-12-05 00:00:00 Outpatient JOANNE MONTES KELLEE [id number] Kellee Buckley 2023-12-03 11:45:00 2023-12-03 11:45:00 Outpatient LABGerman DORMAN KELLEE [id number] Kellee Ariasbeck 2023-12-03 11:00:00 2023-12-03 11:00:00 Outpatient JOANNE MONTESROXANNE DORMAN [id number] [facility] 2023-11-26 00:00:00 2023-11-26 00:00:00 Outpatient JOANNE MONTES KELLEE [id number] [facility] 2023-10-31 00:00:00 2023-10-31 00:00:00 Outpatient COSMO ANDERSENROXANNE DORMAN [id number] [facility] 2023-10-31 00:00:00 2023-10-31 00:00:00 Outpatient COSMO ANDERSENROXANNE DORMAN [id number] [facility] 2023-10-29 14:15:00 2023-10-29 14:15:00 Outpatient LAB90 KELLEE KELLEE [id number] Kellee [facility] 2023-10-29 13:30:00 2023-10-29 13:30:00 Outpatient JOANNE MONTES KELLEE DORMAN [id number] [facility] 2023-10-10 21:31:00 2023-10-11 00:43:00 Emergency X OLIVIA GARCIA [facility] ERT [id number] [facility] 2023-10-10 21:31:00 2023-10-11 00:43:00 Emergency Olivia Garcia [facility] 1.2.840.114 350.1.13.10 4.2.7.2.686 [id number] [facility] 2023-08-31 18:02:00 2023-08-31 22:40:00 emergency [facility] [id number] 2023-08-31 18:02:00 2023-08-31 22:40:00 Emergency ER SHERIDAN MCMANUS [facility] [id number] [facility] 2023-07-01 19:50:00 2023-07-01 22:59:00 Emergency X RICHARD RICHARDSNELL [facility] ERT [id number] [facility] 2023-07-01 19:50:00 2023-07-01 22:59:00 Emergency Roberto Richards [facility] [id number] 350.1.13.10 4.2.7.2.686 [id number] [facility] 2023-06-04 23:37:00 2023-06-06 13:30:00 observatio n encounter [facility] [id number] [facility] [id number] 2023-06-04 23:37:00 2023-06-06 13:30:00 Inpatient ER SHAN BUSCH [facility] [id number] [facility] 2023-05-11 01:16:00 2023-05-13 17:04:00 observatio n encounter [facility] [id number] 2023-05-11 01:16:00 2023-05-13 17:04:00 Inpatient ER RIDDHI MYLES [facility] [id number] [facility] 2023-05-10 21:48:00 2023-05-10 21:48:00 Emergency ER AN IRIZARRY [facility] [id number] [facility] 2023-05-09 17:40:00 2023-05-09 20:30:00 Emergency NARAYAN MATA [facility] ERT [id number] [facility] 2023-05-09 17:40:00 2023-05-09 20:30:00 Emergency Narayan Narvaez [facility] 1.2840.114 350.1.13.10 4.2.7.2.686 [id number] [facility] 2023-05-05 21:31:00 2023-05-06 03:15:00 emergency [facility] [id number] 2023-05-05 21:31:00 2023-05-06 03:15:00 Emergency ER SHERIDAN MCMANUS [facility] [id number] [facility] 2023-04-30 17:18:00 2023-04-30 21:20:00 Emergency NARAYAN MATA [facility] ERT [id number] [facility] 2023-04-30 17:18:00 2023-04-30 21:20:00 Emergency Narayan Narvaez [facility] 1.2840.114 350.1.13.10 4.2.7.2.686 [id number] [facility] 2023-04-16 20:40:00 2023-04-16 23:10:00 Emergency X ROBERTO RICHARDS [facility] ERT [id number] [facility] 2023-04-16 20:40:00 2023-04-16 23:10:00 Emergency Roberto Richards [facility] 1.2840.114 350.1.13.10 4.2.7.2.686 [id number] [facility] 2023-04-08 17:28:00 2023-04-08 21:20:00 Emergency X Saleem EDWARD [facility] ERT [id number] [facility] 2023-04-08 17:28:00 2023-04-08 21:20:00 Emergency Saleem Edward [facility] 1.2840.114 350.1.13.10 4.2.7.2.686 [id number] [facility] 2023-03-09 20:23:00 2023-03-10 00:20:00 Emergency X ROBERTO RICHARDS [facility] ERT [id number] [facility] 2023-03-09 20:23:00 2023-03-10 00:20:00 Emergency RichardsRoberto [facility] 1.2840.114 350.1.13.10 4.2.7.2.686 [id number] [facility] 2023-03-01 19:35:00 2023-03-02 01:35:00 Emergency X OLIVIA GARCIA [facility] ERT [id number] [facility] 2023-03-01 19:35:00 2023-03-02 01:35:00 Emergency Olivia Garcia [facility] 1.2840.114 350.1.13.10 4.2.7.2.686 [id number] [facility] 2023-02-17 22:58:00 2023-02-18 02:22:00 Emergency X BRITTNI PADGETT [facility] ERT [id number] [facility] 2023-02-17 22:58:00 2023-02-18 02:22:00 Emergency PadgettBrittni [facility] 1.2840.114 350.1.13.10 4.2.7.2.686 [id number] [facility] 2023-02-15 13:46:00 2023-02-17 16:14:00 Outpatient X JESÚS MONTERO [facility] ALTHEA [id number] [facility] 2023-02-15 13:46:00 2023-02-17 16:14:00 Emergency Leeanne Wise Jelani [facility] 1.2.840.114 350.1.13.10 4.2.7.2.686 [id number] [facility] 2022-01-17 10:48:00 2022-01-17 10:48:00 Outpatient CATHIE JAZLYN [facility] [id number] Heather [facility] 2022-01-09 16:47:00 2022-01-09 20:28:00 Emergency X MELIDA LONGORIA [facility] ERT [id number] [facility] 2022-01-09 16:47:00 2022-01-09 20:28:00 Emergency Melida Longoria [facility] 1.2.840.114 350.1.13.10 4.2.7.2.686 [id number] [facility] 2021-12-13 22:16:00 2021-12-14 02:28:00 Emergency X WIL MCQUEEN [facility] ERT [id number] [facility] 2021-12-13 22:16:00 2021-12-14 02:28:00 Emergency Wil Mcqueen [facility] 1.2.840.114 350.1.13.10 4.2.7.2.686 [id number] [facility] 2021-11-11 19:50:00 2021-11-11 23:17:00 Emergency X DEE WANG [facility] ERT [id number] [facility] 2021-11-11 19:50:00 2021-11-11 23:17:00 Emergency Dee Wang [facility] 1.2840.114 350.1.13.10 4.2.7.2.686 [id number] [facility] 2021-11-11 00:00:00 2021-11-11 00:00:00 Orders Only Doctor Unassigned, [place] [facility] 1.2840.114 350.1.13.10 4.2.7.2.686 [id number] [facility] 2021-09-11 19:42:00 2021-09-11 23:02:00 Emergency X DEE WANG [facility] ERT [id number] [facility] 2021-09-11 19:42:00 2021-09-11 23:02:00 Emergency Dee Wang [facility] 1.2840.114 350.1.13.10 4.2.7.2.686 [id number] [facility] 2021-08-14 23:38:00 2021-08-15 02:29:00 Emergency X TRACYPAULYSONIA HUGHESRACHELLE [facility] ERT [id number] [facility] 2021-08-14 23:38:00 2021-08-15 02:29:00 Emergency Tracypaulychuy Soniarachelle Shankar [facility] 1.2840.114 350.1.13.10 4.2.7.2.686 [id number] [facility] 2021-05-27 23:23:00 2021-05-28 04:23:00 Emergency X CEM CHOI [facility] ERT [id number] [facility] 2021-05-27 23:23:00 2021-05-28 04:23:00 Emergency Cem Choi [facility] 1.2840.114 350.1.13.10 4.2.7.2.686 [id number] [facility] 2021-04-10 00:00:00 2021-04-10 00:00:00 Transition of Care Shelley Rosas 1.2.840.114 350.1.13.10 4.2.7.2.686 [id number] [facility] 2021-04-07 16:30:00 2021-04-08 17:45:00 Hospital Encounter Maurice Roberto Kylah Jesús [facility] 1.2.840.114 350.1.13.10 4.2.7.2.686 [id number] [facility] 2021-04-07 16:18:00 2021-04-07 16:18:00 Emergency X [facility] ERT [id number] [facility] 2021-01-12 03:01:00 2021-01-12 04:56:00 Emergency Narayan Narvaez [facility] 1.2.840.114 350.1.13.10 4.2.7.2.686 [id number] [facility] 2021-01-12 03:01:00 2021-01-12 03:01:00 Emergency X NARAYAN NARVAEZ [facility] ERT [id number] [facility] 2020-12-10 17:12:00 2020-12-10 21:14:00 Emergency Bal Hassan [facility] 1.2.840.114 350.1.13.10 4.2.7.2.686 [id number] [facility] 2020-12-10 17:12:00 2020-12-10 17:12:00 Emergency X MO BAL [facility] ERT [id number] [facility] 2020-12-04 14:50:00 2020-12-04 17:08:00 Emergency Tremaine Becerra [facility] 1.2.840.114 350.1.13.10 4.2.7.2.686 [id number] [facility] 2020-12-04 14:50:00 2020-12-04 17:08:00 Emergency X TREMAINE BECERRA [facility] ERT [id number] [facility] 2020-11-03 20:44:00 2020-11-03 23:34:00 Emergency DreLeeanne almonte [facility] 1.2.840.114 350.1.13.10 4.2.7.2.686 [id number] [facility] 2020-11-03 20:44:00 2020-11-03 23:34:00 [facility] [id number] 2020-09-19 12:32:00 2020-09-19 14:15:00 Emergency ER MORA POLLOCK [facility] [id number] [facility] 2020-09-17 09:53:00 2020-09-17 11:55:00 Emergency DreLeeanne almonte [facility] 1.2.840.114 350.1.13.10 4.2.7.2.686 [id number] [facility] 2020-09-17 09:53:00 2020-09-17 11:55:00 Emergency X LEEANNE WISE [facility] ERT [id number] [facility] 2020-09-17 09:53:00 2020-09-17 11:55:00 Emergency DreLeeanne almonte [facility] 1.2.840.114 350.1.13.10 4.2.7.2.686 [id number] 084 [id number] 2020-09-07 00:37:00 2020-09-07 01:41:00 Emergency Saleem Edward [facility] 1.2.840.114 350.1.13.10 4.2.7.2.686 [id number] [id number] [facility] 2020-09-07 00:37:00 2020-09-07 01:41:00 Emergency X Saleem EDWARD [facility] ERT [id number] [facility] 2020-09-07 00:37:00 2020-09-07 01:41:00 Emergency Saleem Edward [facility] 1.2.840.114 350.1.13.10 4.2.7.2.686 [id number] 2020-09-07 00:00:00 2020-09-07 00:00:00 Orders Only Doctor Unassigned, [place] [facility] 1.2.840.114 350.1.13.10 4.2.7.2.686 [id number] [id number] [facility] 2020-09-07 00:00:00 2020-09-07 00:00:00 Orders Only Doctor Unassigned, [place] [facility] 1.2.840.114 350.1.13.10 4.2.7.2.686 [id number] 2020-08-28 01:59:00 2020-08-28 04:40:00 Emergency Olivia Garcia [facility] 1.2.840.114 350.1.13.10 4.2.7.2.686 [id number] 084 [id number] [facility] 2020-08-28 01:59:00 2020-08-28 04:40:00 Emergency Olivia Garcia [facility] 1.2.840.114 350.1.13.10 4.2.7.2.686 [id number] 084 [id number] 2020-08-28 01:59:00 2020-08-28 01:59:00 Emergency X OLIVIA GARCIA [facility] ERT [id number] [facility] 2020-08-14 11:48:00 2020-08-14 13:42:00 Emergency Best Taylor [facility] 1.2.840.114 350.1.13.10 4.2.7.2.686 [id number] 084 [id number] [facility] 2020-08-14 11:48:00 2020-08-14 13:42:00 Emergency Best Taylor [facility] 1.2.840.114 350.1.13.10 4.2.7.2.686 [id number] 084 [id number] 2020-08-14 11:33:00 2020-08-14 11:33:00 Emergency BEST BORGES [facility] ERT [id number] [facility] 2020-08-10 18:35:00 2020-08-11 00:05:00 Emergency [facility] 1.2.840.114 350.1.13.10 4.2.7.2.686 [id number] 084 [id number] [facility] 2020-08-10 18:35:00 2020-08-11 00:05:00 Emergency OLIVIA WAYNE [facility] ERT [id number] [facility] 2020-08-10 18:35:00 2020-08-11 00:05:00 Emergency Best Taylor [place] [facility] 1.2.840.114 350.1.13.10 4.2.7.2.686 [id number] 084 [id number] 2020-08-07 07:19:00 2020-08-07 09:02:00 Emergency Roberto Richards [facility] 1.2.840.114 350.1.13.10 4.2.7.2.686 [id number] 084 [id number] [facility] 2020-08-07 07:19:00 2020-08-07 09:02:00 Emergency Roberto Richards [facility] 1.2.840.114 350.1.13.10 4.2.7.2.686 [id number] 084 [id number] 2020-08-07 07:12:00 2020-08-07 07:12:00 Emergency X [facility] ERT [id number] [facility] 2020-08-07 00:00:00 2020-08-07 00:00:00 Orders Only Doctor Unassigned, [place] [facility] 1.2.840.114 350.1.13.10 4.2.7.2.686 [id number] [id number] [facility] 2020-08-07 00:00:00 2020-08-07 00:00:00 Orders Only Doctor Unassigned, [place] [facility] 1.2.840.114 350.1.13.10 4.2.7.2.686 [id number] 009 [id number] 2020-07-01 00:00:00 2020-07-01 00:00:00 Letter (Out) [facility] 1.2.840.114 350.1.13.10 4.2.7.2.686 [id number] 019 [id number] [facility] 2020-07-01 00:00:00 2020-07-01 00:00:00 Letter (Out) [facility] 1.2.840.114 350.1.13.10 4.2.7.2.686 [id number] 2020-06-30 17:46:00 2020-06-30 21:06:00 Emergency Abdias Robertson [facility] 1.2.840.114 350.1.13.10 4.2.7.2.686 [id number] 084 [id number] [facility] 2020-06-30 17:46:00 2020-06-30 21:06:00 Emergency X ABDIAS ROBERTSON [facility] ERT [id number] [facility] 2020-06-30 17:46:00 2020-06-30 21:06:00 Emergency Abdias Robertson [facility] 1.2.840.114 350.1.13.10 4.2.7.2.686 [id number] 084 [id number] 2020-06-28 16:00:00 2020-06-28 18:08:00 Emergency Narayan Narvaez [facility] 1.2.840.114 350.1.13.10 4.2.7.2.686 [id number] 084 [id number] 2020-06-28 16:00:00 2020-06-28 18:08:00 Emergency Narayan Narvaez [facility] 1.2.840.114 350.1.13.10 4.2.7.2.686 [id number] [id number] [facility] 2020-06-28 16:00:00 2020-06-28 16:00:00 Emergency X NARAYAN NARVAEZ [facility] ERT [id number] [facility] 2020-06-14 00:00:00 2020-06-14 00:00:00 Telephone [facility] 1.2.840.114 350.1.13.10 4.2.7.2.686 [id number] 019 [id number] 2020-06-14 00:00:00 2020-06-14 00:00:00 Telephone [facility] 1.2.840.114 350.1.13.10 4.2.7.2.686 [id number] 019 [id number] [facility] 2020-06-12 17:40:00 2020-06-12 22:05:00 Emergency Leeanne Wise [facility] 1.2.840.114 350.1.13.10 4.2.7.2.686 [id number] 084 [id number] 2020-06-12 17:40:00 2020-06-12 22:05:00 Emergency Leeanne Wise [facility] 1.2.840.114 350.1.13.10 4.2.7.2.686 [id number] [id number] [facility] 2020-06-12 17:28:00 2020-06-12 17:28:00 Emergency X [facility] ERT [id number] [facility] 2020-05-16 17:10:00 2020-05-16 19:01:00 Emergency Bushra Rios [facility] 1.2.840.114 350.1.13.10 4.2.7.2.686 [id number] 084 [id number] 2020-05-16 17:10:00 2020-05-16 19:01:00 Emergency Bushra Rios [facility] 1.2.840.114 350.1.13.10 4.2.7.2.686 [id number] 084 [id number] [facility] 2020-05-16 17:10:00 2020-05-16 17:10:00 Emergency X BUSHRA RIOS [facility] ERT [id number] [facility] 2020-05-14 23:18:00 2020-05-15 02:54:00 Emergency Roberto Richards [facility] 1.2.840.114 350.1.13.10 4.2.7.2.686 [id number] 084 [id number] 2020-05-14 23:18:00 2020-05-15 02:54:00 Emergency Roberto Richards [facility] 1.2.840.114 350.1.13.10 4.2.7.2.686 [id number] 084 [id number] [facility] 2020-05-14 23:14:00 2020-05-14 23:14:00 Emergency X ROBERTO RICHARDS [facility] ERT [id number] [facility] 2009-07-18 05:35:00 2009-07-18 09:19:00 Emergency ER SINCERE FRANK [facility] [id number] [facility] 2008-10-08 09:55:00 2008-10-08 14:19:00 Emergency ER GUMARO ALVAREZ [facility] [id number] [facility] 2008-03-26 15:21:00 2008-03-26 18:08:00 Emergency ER NEIL WILKINS [facility] [id number] [facility] 2005-05-25 06:35:00 2005-05-25 06:35:00 Outpatient CATHERINE BOCANEGRALISA [facility] [id number] [facility] 2005-05-16 21:57:00 2005-05-16 23:40:00 Emergency ER JW SOLORZANO [facility] [id number] [facility] 2005-04-24 18:49:00 2005-04-24 22:40:00 Emergency ER JW SOLORZANO [facility] [id number] [facility] 2004-12-27 20:30:00 2004-12-28 01:40:00 Emergency ER SANIA SIBLEY [facility] [id number] [facility] 2003-12-07 22:40:00 2003-12-08 02:48:00 Emergency ER GINA MARTIN [facility] [id number] [facility] 2003-12-06 13:57:00 2003-12-06 18:30:00 Emergency ER YIN RIOS [facility] [id number] [facility] 2003-08-31 19:43:00 2003-08-31 22:55:00 Emergency ER GUMARO ALVAREZ [facility] [id number] [facility] 2003-08-22 19:26:00 2003-08-22 22:10:00 Emergency ER TIN ALBERTO [facility] [id number] [facility] 2002-01-30 22:41:00 2002-01-31 01:29:00 Emergency ER ANTHONY SCHNEIDER [facility] [id number] [facility] 2001-10-28 09:15:00 2001-10-28 11:25:00 Emergency ER DARCIE MCKEON [facility] [id number] [facility] 2001-04-15 19:14:00 2001-04-15 23:10:00 Emergency ER ARLETTE ROBERT [facility] [id number] [facility] 2000-12-25 21:52:00 2000-12-26 00:15:00 Emergency ER GISELA RIOS [facility] [id number] [facility] 2000-12-23 18:51:00 2000-12-23 22:00:00 Emergency ER HUGO COFFMAN [facility] [id number] [facility] 1999-10-26 21:11:00 1999-10-27 00:20:00 Emergency ER JW SOLORZANO [facility] [id number] [facility] Results Test Description Test Time Test Comments Results Result Comments Source CT ABDOMEN PELVIS W CONTRAST 05:07:16 ORDERING PHYSICIAN:OLIVIA MUSA CLINICAL INFORMATION: ? Abdominal pain, fever LOWER ABDOMINAL PAIN COMPARISON: 03/02/2023 Technique: ? CT of the abdomen and pelvis was performed after theadministration of IV contrast. No p.o. contrast was used. Multiplanarreformats were also obtained. This study was performed according to ALARAprinciple for radiation dose reduction. Findings: There is no evidence of obstructive uropathy. No suspicious renalparenchymal abnormalities are seen. Gallbladder is surgically absent. Theliver, spleen, pancreas and evidence of gross abnormalities. 2.9 x 2.7 cmleft adrenal nodule has been described as a benign adenoma on previousexams. This is not significantly changed when compared to the most recentstudy. There is no bowel obstruction. Appendix is normal. No free intraperitonealair or fluid are present. No pathologically enlarged lymph nodes are seenin the abdomen or pelvis. 2.1 cm cyst is seen in the left adnexal region.No free intraperitoneal air or fluid are present. No pathologicallyenlarged lymph nodes are seen. Lung bases are clear. There are nosuspicious focal osseous lesions. [facility] [id number] 04:38:58* Test Item Value Reference Range Interpretation Comme nts LIPASE (test code = 2922733530) 136 U/L 0-220 Lab Interpretation (test cod e = 80475-7) Normal [facility] [id number] 04:19:14* Test Item Value Reference Range Interpretation Comme nts WBC (test code = 6690-2) 11.23 4.30-11.10 H RBC (test code = 789-8) 4.98 3.93-5.25 HGB (test code = 718-7) 12.8 g/dL 11.6-15.0 HCT (test code = 4544-3) 39.8 % 35.7-45.2 MCV (test code = 787-2) 79.9 fL 80.6-95.5 L MCH (test code = 785-6) 25.7 pg 25.9-32.8 L MCHC (test code = 786-4) 32.2 g/dL 31.6-35.1 RDW-SD (test code = 01299-8) 50.2 fL 39.0-49.9 H RDW-CV (test code = 788-0) 17.3 % 12.0-15.5 H PLT (test code = 777-3) 377 166-358 H MPV (test code = 08915-7) 9.4 fL 9.5-12.9 L NRBC/100 WBC (test code = 5942491524) 0.0 0.0-10.0 NRBC x10^3 (test code = 7180393278) See_Comment [Automated messa ge] The system which generated this result transmitted reference range: 10*3/?L. The reference range was not used to interpret this result as normal/abnormal. GRAN MAT (NEUT) % (test code = 770-8) 65.3 % IMM GRAN % (test code = 0327784547) 0.40 % LYMPH % (test code = 736-9) 26.1 % MONO % (test code = 5905-5) 6.2 % EOS % (test code = 713-8) 1.6 % BASO % (test code = 706-2) 0.4 % GRAN MAT x10^3(ANC) (test code = 3524610632) 7.33 10*3/uL 1.88-7.09 H IMM GRAN x10^3 (test code = 2363458115) 0.04 10*3/uL 0.00-0.06 LYMPH x10^3 (test code = 731-0) 2.93 10*3/uL 1.32-3.29 MONO x10^3 (test code = 742-7) 0.70 10*3/uL 0.33-0.92 EOS x10^3 (test code = 711-2) 0.18 10*3/uL 0.03-0.39 BASO x10^3 (test code = 704-7) 0.05 10*3/uL 0.01-0.07 Lab Interpretation (test code = 04254-9) Abnormal [facility] [id number] 03:40:00* Test Item Value Reference Range Interpretation Comme nts POCT PREG (test code = 1605) Negative On board controls acceptable with C Line (test code = 3574) Yes POCT PREG LOT # (test code = 3575) [id number] POCT PREG TEST DATE ( test code = 3576) 2024-10-13 Lab Interpretation (test cod e = 67151-0) Normal [facility] [id number] 04:35:04Ordering physician: ROBERTO RICHARDS INDICATION: Abdominal pain COMPARISON: CT of the abdomen and pelv is dated 03/09/2023 FINDINGS: Supine AP view of the abdomen and pelvis. There is no bowelobstruction or generalized constipation.[facility] [id number] 02:30:00* Test Item Value Reference Range Interpretation Comme nts POCT PREG (test code = 1605) Negative On board controls acceptable with C Line (test code = 3574) Yes POCT PREG LOT # (test code = 3575) [id number] POCT PREG TEST DATE ( test code = 3576) 2024-09-15 Lab Interpretation (test cod e = 22149-2) Normal [facility] WITH [id number] 00:05:06* Test Item Value Reference Range Interpretation Comme nts WBC (test code = 6690-2) 12.06 See_Comment H [Automated messa ge] The system which generated this result transmitted reference range: 4.30 - 11.10 10*3/?L. The reference range was not used to interpret this result as normal/abnormal. RBC (test code = 789-8) 5.18 See_Comment [Automated messa ge] The system which generated this result transmitted reference range: 3.93 - 5.25 10*6/?L. The reference range was not used to interpret this result as normal/abnormal. HGB (test code = 718-7) 14.1 g/dL 11.6-15.0 HCT (test code = 4544-3) 41.2 % 35.7-45.2 MCV (test code = 787-2) 79.5 fL 80.6-95.5 L MCH (test code = 785-6) 27.2 pg 25.9-32.8 MCHC (test code = 786-4) 34.2 g/dL 31.6-35.1 RDW-SD (test code = 28025-6) 41.5 fL 39.0-49.9 RDW-CV (test code = 788-0) 14.5 % 12.0-15.5 PLT (test code = 777-3) 384 See_Comment H [Automated messa ge] The system which generated this result transmitted reference range: 166 - 358 10*3/?L. The reference range was not used to interpret this result as normal/abnormal. MPV (test code = 82818-3) 9.6 fL 9.5-12.9 GRAN MAT (NEUT) % (test code = 770-8) 66.0 % IMM GRAN % (test code = 4300560553) 0.50 % LYMPH % (test code = 736-9) 27.4 % MONO % (test code = 5905-5) 4.6 % EOS % (test code = 713-8) 1.1 % BASO % (test code = 706-2) 0.4 % GRAN MAT x10^3(ANC) (test code = 2116549405) 7.96 10*3/uL 1.88-7.09 H IMM GRAN x10^3 (test code = 0308354164) 0.06 10*3/uL 0.00-0.06 LYMPH x10^3 (test code = 731-0) 3.30 10*3/uL 1.32-3.29 H MONO x10^3 (test code = 742-7) 0.56 10*3/uL 0.33-0.92 EOS x10^3 (test code = 711-2) 0.13 10*3/uL 0.03-0.39 BASO x10^3 (test code = 704-7) 0.05 10*3/uL 0.01-0.07 Lab Interpretation (test code = 98479-7) Abnormal [facility]. METABOLIC PANEL ([id number])2023-05-09 23:27:13* Test Item Value Reference Range Interpretation Comme nts NA (test code = 7663805521) 137 mmol/L 135-145 K (test code = 9854037701) 3.3 mmol/L 3.5-5.0 L CL (test code = 4820583367) 103 mmol/L 98-108 CO2 TOTAL (test code = 2286034509) 20 mmol/L 23-31 L AGAP (test code = 2217789400) 14 2-16 BUN (test code = 6610616308) 5 mg/dL 7-23 L GLUCOSE (test code = 0578499157) 146 mg/dL 70-110 H CREATININE (test code = 4993974849) 0.60 mg/dL 0.50-1.04 TOTAL BILI (test code = 7199308367) 0.3 mg/dL 0.1-1.1 CALCIUM (test code = 7351585339) 9.3 mg/dL 8.6-10.6 T PROTEIN (test code = 5138799007) 7.9 g/dL 6.3-8.2 ALBUMIN (test code = 9366782579) 4.4 g/dL 3.5-5.0 ALK PHOS (test code = 6717330599) 105 U/L 34-122 ALTv (test code = 1742-6) 38 U/L 5-35 H AST(SGOT) (test code = 4284543011) 21 U/L 13-40 eGFR (test code = 44590-3) 113.7 mL/min/1.73m2 CKD-EPI eGFR (2020). Assuming creatinine has been stable day-to-day for at least three months, the eGFR indicates Category G1 (>= 90 mL/min/1.73 m2) Lab Interpretation (test code = 77566-6) Abnormal [facility]2023-11-02 23:27:13* Test Item Value Reference Range Interpretation Comme nts LIPASE (test code = 8052975146) 142 U/L 0-220 Lab Interpretation (test cod e = 78468-7) Normal [facility] METABOLIC PANEL ([id number])2023-04-30 23:41:47* Test Item Value Reference Range Interpretation Comme nts NA (test code = 1644746378) 139 mmol/L 135-145 K (test code = 0866041435) 3.3 mmol/L 3.5-5.0 L CL (test code = 1355896239) 105 mmol/L 98-108 CO2 TOTAL (test code = 1897416885) 20 mmol/L 23-31 L AGAP (test code = 3999189718) 14 2-16 BUN (test code = 4325817310) 6 mg/dL 7-23 L GLUCOSE (test code = 8486607601) 119 mg/dL 70-110 H CREATININE (test code = 5467132132) 0.59 mg/dL 0.50-1.04 TOTAL BILI (test code = 3230259675) 0.3 mg/dL 0.1-1.1 CALCIUM (test code = 1424624926) 9.7 mg/dL 8.6-10.6 T PROTEIN (test code = 1336568764) 7.6 g/dL 6.3-8.2 ALBUMIN (test code = 6267739627) 4.2 g/dL 3.5-5.0 ALK PHOS (test code = 1589509734) 78 U/L 34-122 ALTv (test code = 1742-6) 24 U/L 5-35 AST(SGOT) (test code = 5421593923) 24 U/L 13-40 eGFR (test code = 3536245684) 110.7 mL/min/1.73m2 DARWIN (test code = DARWIN) Association of Glomerular Filtration Rate (GFR) and Staging of Kidney Disease* + --+ --+ ------+| GFR (mL/min/1.73 m2) ?| With Kidney Damage ?| ?Without Kidney Damage+ --------+ --------+ +| ?>90 ?| ?Stage one ?| ? Normal ?+ ---+ ---+ -------+| ?60-89 ?| ?Stage two ?| ? Decreased GFR ? + --+ --+ ------+| ?30-59 ?| ?Stage three ?| ? Stage three ? + --+ --+ ------+| ?15-29 ?| ?Stage four ? | ? Stage four ?+ ---+ ---+ -------+| ?<15 (or dialysis) ? ?| ?Stage five ? | ? Stage five ?+ ---+ ---+ -------+ *Each stage assumes the associated GFR level has been in effect for at least three months. ?Stages 1 to 5, with or without kidney disease, indicate chronic kidney disease. Notes: Determination of stages one and two (with eGFR >59mL/min/1.73 m2) requires estimation of kidney damage for at least three months as defined by structural or functional abnormalities of the kidney, manifested by either:Pathological abnormalities or Markers of kidney damage (including abnormalities in the composition of the blood or urine or abnormalities in imaging tests). Lab Interpretation (test code = 90181-0) Abnormal [facility] WITH [id number] 23:29:07* Test Item Value Reference Range Interpretation Comme nts WBC (test code = 6690-2) 11.56 See_Comment H [Automated [email or web address]] The system which generated this result transmitted reference range: 4.30 - 11.10 10*3/?L. The reference range was not used to interpret this result as normal/abnormal. RBC (test code = 789-8) 5.02 See_Comment [Automated [email or web address]] The system which generated this result transmitted reference range: 3.93 - 5.25 10*6/?L. The reference range was not used to interpret this result as normal/abnormal. HGB (test code = 718-7) 13.8 g/dL 11.6-15.0 HCT (test code = 4544-3) 40.9 % 35.7-45.2 MCV (test code = 787-2) 81.5 fL 80.6-95.5 MCH (test code = 785-6) 27.5 pg 25.9-32.8 MCHC (test code = 786-4) 33.7 g/dL 31.6-35.1 RDW-SD (test code = 81313-4) 41.5 fL 39.0-49.9 RDW-CV (test code = 788-0) 14.3 % 12.0-15.5 PLT (test code = 777-3) 335 See_Comment [Automated messa ge] The system which generated this result transmitted reference range: 166 - 358 10*3/?L. The reference range was not used to interpret this result as normal/abnormal. MPV (test code = 23727-5) 9.7 fL 9.5-12.9 NRBC/100 WBC (test code = 6161281587) 0.0 See_Comment [Automated [employer] ssage] The system which generated this result transmitted reference range: 0.0 - 10.0 /100 WBCs. The reference range was not used to interpret this result as normal/abnormal. NRBC x10^3 (test code = 5168336774) See_Comment [Automated messa ge] The system which generated this result transmitted reference range: 10*3/?L. The reference range was not used to interpret this result as normal/abnormal. GRAN MAT (NEUT) % (test code = 770-8) 65.7 % IMM GRAN % (test code = 7639420921) 0.50 % LYMPH % (test code = 736-9) 25.4 % MONO % (test code = 5905-5) 6.7 % EOS % (test code = 713-8) 1.2 % BASO % (test code = 706-2) 0.5 % GRAN MAT x10^3(ANC) (test code = 5366678937) 7.59 10*3/uL 1.88-7.09 H IMM GRAN x10^3 (test code = 1967645471) 0.06 10*3/uL 0.00-0.06 LYMPH x10^3 (test code = 731-0) 2.94 10*3/uL 1.32-3.29 MONO x10^3 (test code = 742-7) 0.77 10*3/uL 0.33-0.92 EOS x10^3 (test code = 711-2) 0.14 10*3/uL 0.03-0.39 BASO x10^3 (test code = 704-7) 0.06 10*3/uL 0.01-0.07 Lab Interpretation (test code = 28120-2) Abnormal [facility] [id number] 22:59:00* Test Item Value Reference Range Interpretation Comme nts POCT PREG (test code = 1605) Negative On board controls acceptable with C Line (test code = 3574) Yes POCT PREG LOT # (test code = 3575) [id number] POCT PREG TEST DATE ( test code = 3576) 07/10/2024 Lab Interpretation (test cod e = 34124-9) Normal [facility] [id number] 02:36:34* Test Item Value Reference Range Interpretation Comme nts TROPONIN I (test code = 7591681182) 0.000 ng/mL <=0.034 DARWIN (test code = DARWIN) Reference (Normal) Range (defined by the 99th percentile reference limit): <= 0.034 ng/mL Note: Cardiac troponin begins to rise 3-4 hours after the onset of ischemia. Repeat in 4-6 hours if the sample was drawn within 3-4 hours of the onset of the symptom and found normal. Diagnosis of myocardial injury is made with acute changes in cTn concentrations with at least one serial sample above the 99th percentile upper reference limit (URL), taken together with the patient's clinical presentation. Biotin has been reported to cause a negative bias, interpret results relative to patient's use of biotin. Lab Interpretation (test code = 78947-6) Normal [facility] ResourcesN-[facility]MINAL [id number] 02:34:17* Test Item Value Reference Range Interpretation Comme nts NT-proBNP (test code = 80045-0) 40 pg/mL <=125 Lab Interpretation (test cod e = 54543-4) Normal [facility]ACT[facility] PARTIAL THRMPLAS [id number] 02:33:37* Test Item Value Reference Range Interpretation Comme [facility] APTT Patient (test code = 3173-2) 25 See_Comment [Automated message] The system which generated this result transmitted reference range: 23 - 38 Seconds. The reference range was not used to interpret this result as normal/abnormal. DARWIN (test code = DARWIN) The [facility] patient population mean normal value for aPTT is 30 seconds. Lab Interpretation (test code = 17519-1) Normal [facility] ResourcesPROTHROMBIN TIME / [id number] 02:31:36* Test Item Value Reference Range Interpretation Comme [facility] PROTIME PATIENT (test code = 5964-2) 12.6 See_Comment [Automated messa ge] The system which generated this result transmitted reference range: 12.0 - 14.7 Seconds. The reference range was not used to interpret this result as normal/abnormal. INR (test code = 6301-6) 1.0 Normal INR <1.1; Warfarin Therapeutic range 2.0 to 3.0 or 2.5 to 3.5, depending upon the indications. Lab Interpretation (test code = 12078-9) Normal [facility] METABOLIC PANEL ([id number])2023-04-17 02:24:56* Test Item Value Reference Range Interpretation Comme [facility] NA (test code = 0750809056) 142 mmol/L 135-145 K (test code = 7478473072) 3.1 mmol/L 3.5-5.0 L CL (test code = 4445550199) 108 mmol/L 98-108 CO2 TOTAL (test code = 7997980064) 20 mmol/L 23-31 L AGAP (test code = 7026132760) 14 2-16 BUN (test code = 7743609232) 4 mg/dL 7-23 L GLUCOSE (test code = 5646212544) 107 mg/dL 70-110 CREATININE (test code = 9914902054) 0.61 mg/dL 0.50-1.04 TOTAL BILI (test code = 9945061504) 0.2 mg/dL 0.1-1.1 CALCIUM (test code = 9207788311) 9.1 mg/dL 8.6-10.6 T PROTEIN (test code = 0225411523) 7.0 g/dL 6.3-8.2 ALBUMIN (test code = 0566778368) 3.9 g/dL 3.5-5.0 ALK PHOS (test code = 9283207505) 69 U/L 34-122 ALTv (test code = 1742-6) 21 U/L 5-35 AST(SGOT) (test code = 4210955691) 21 U/L 13-40 eGFR (test code = 8945756604) 106.5 mL/min/1.73m2 DARWIN (test code = DARWIN) Association of Glomerular Filtration Rate (GFR) and Staging of Kidney Disease* + --+ --+ ------+| GFR (mL/min/1.73 m2) ?| With Kidney Damage ?| ?Without Kidney Damage+ --------+ --------+ +| ?>90 ?| ?Stage one ?| ? Normal ?+ ---+ ---+ -------+| ?60-89 ?| ?Stage two ?| ? Decreased GFR ? + --+ --+ ------+| ?30-59 ?| ?Stage three ?| ? Stage three ? + --+ --+ ------+| ?15-29 ?| ?Stage four ? | ? Stage four ?+ ---+ ---+ -------+| ?<15 (or dialysis) ? ?| ?Stage five ? | ? Stage five ?+ ---+ ---+ -------+ *Each stage assumes the associated GFR level has been in effect for at least three months. ?Stages 1 to 5, with or without kidney disease, indicate chronic kidney disease. Notes: Determination of stages one and two (with eGFR >59mL/min/1.73 m2) requires estimation of kidney damage for at least three months as defined by structural or functional abnormalities of the kidney, manifested by either:Pathological abnormalities or Markers of kidney damage (including abnormalities in the composition of the blood or urine or abnormalities in imaging tests). Lab Interpretation (test code = 59163-0) Abnormal [facility] 02:24:56* Test Item Value Reference Range Interpretation Comme nts LIPASE (test code = 9720995011) 104 U/L 0-220 Lab Interpretation (test cod e = 68485-4) Normal [facility] WITH [id number] 02:13:31* Test Item Value Reference Range Interpretation Comme nts WBC (test code = 6690-2) 10.74 See_Comment [Automated messa ge] The system which generated this result transmitted reference range: 4.30 - 11.10 10*3/?L. The reference range was not used to interpret this result as normal/abnormal. RBC (test code = 789-8) 4.75 See_Comment [Automated messa ge] The system which generated this result transmitted reference range: 3.93 - 5.25 10*6/?L. The reference range was not used to interpret this result as normal/abnormal. HGB (test code = 718-7) 13.1 g/dL 11.6-15.0 HCT (test code = 4544-3) 38.0 % 35.7-45.2 MCV (test code = 787-2) 80.0 fL 80.6-95.5 L MCH (test code = 785-6) 27.6 pg 25.9-32.8 MCHC (test code = 786-4) 34.5 g/dL 31.6-35.1 RDW-SD (test code = 96800-1) 39.1 fL 39.0-49.9 RDW-CV (test code = 788-0) 13.5 % 12.0-15.5 PLT (test code = 777-3) 324 See_Comment [Automated messa ge] The system which generated this result transmitted reference range: 166 - 358 10*3/?L. The reference range was not used to interpret this result as normal/abnormal. MPV (test code = 52110-5) 9.3 fL 9.5-12.9 L NRBC/100 WBC (test code = 5022174135) 0.0 See_Comment [Automated [employer] ssage] The system which generated this result transmitted reference range: 0.0 - 10.0 /100 WBCs. The reference range was not used to interpret this result as normal/abnormal. NRBC x10^3 (test code = 6779102401) See_Comment [Automated messa ge] The system which generated this result transmitted reference range: 10*3/?L. The reference range was not used to interpret this result as normal/abnormal. GRAN MAT (NEUT) % (test code = 770-8) 65.2 % IMM GRAN % (test code = 4423565507) 0.40 % LYMPH % (test code = 736-9) 26.5 % MONO % (test code = 5905-5) 5.8 % EOS % (test code = 713-8) 1.7 % BASO % (test code = 706-2) 0.4 % GRAN MAT x10^3(ANC) (test code = 0187167936) 7.01 10*3/uL 1.88-7.09 IMM GRAN x10^3 (test code = 7360866264) 0.04 10*3/uL 0.00-0.06 LYMPH x10^3 (test code = 731-0) 2.85 10*3/uL 1.32-3.29 MONO x10^3 (test code = 742-7) 0.62 10*3/uL 0.33-0.92 EOS x10^3 (test code = 711-2) 0.18 10*3/uL 0.03-0.39 BASO x10^3 (test code = 704-7) 0.04 10*3/uL 0.01-0.07 Lab Interpretation (test code = 87553-7) Abnormal [facility] [id number] 02:11:00* Test Item Value Reference Range Interpretation Comme nts POCT PREG (test code = 1605) Negative On board controls acceptable with C Line (test code = 3574) Yes POCT PREG LOT # (test code = 3575) [id number] POCT PREG TEST DATE ( test code = 3576) 2024-09-04 Lab Interpretation (test cod e = 77690-8) Normal [facility] [id number] 23:59:14* Test Item Value Reference Range Interpretation Comme nts TROPONIN I (test code = 5197203342) 0.000 ng/mL <=0.034 DARWIN (test code = DARWIN) Reference (Normal) Range (defined by the 99th percentile reference limit): <= 0.034 ng/mL Note: Cardiac troponin begins to rise 3-4 hours after the onset of ischemia. Repeat in 4-6 hours if the sample was drawn within 3-4 hours of the onset of the symptom and found normal. Diagnosis of myocardial injury is made with acute changes in cTn concentrations with at least one serial sample above the 99th percentile upper reference limit (URL), taken together with the patient's clinical presentation. Biotin has been reported to cause a negative bias, interpret results relative to patient's use of biotin. Lab Interpretation (test code = 64049-3) Normal [facility]. METABOLIC PANEL ([id number])2023-04-08 23:47:52* Test Item Value Reference Range Interpretation Comme nts NA (test code = 2974018814) 138 mmol/L 135-145 K (test code = 5348608700) 3.4 mmol/L 3.5-5.0 L CL (test code = 4186833526) 103 mmol/L 98-108 CO2 TOTAL (test code = 2607260401) 22 mmol/L 23-31 L AGAP (test code = 0607570965) 13 2-16 BUN (test code = 3817341026) 6 mg/dL 7-23 L GLUCOSE (test code = 3403583046) 106 mg/dL 70-110 CREATININE (test code = 3505211608) 0.91 mg/dL 0.50-1.04 TOTAL BILI (test code = 9438882239) 0.2 mg/dL 0.1-1.1 CALCIUM (test code = 7983335905) 8.7 mg/dL 8.6-10.6 T PROTEIN (test code = 1163716342) 7.4 g/dL 6.3-8.2 ALBUMIN (test code = 1163147880) 4.1 g/dL 3.5-5.0 ALK PHOS (test code = 1863248267) 71 U/L 34-122 ALTv (test code = 1742-6) 28 U/L 5-35 AST(SGOT) (test code = 5633395695) 28 U/L 13-40 eGFR (test code = 4335320252) 67.2 mL/min/1.73m2 DARWIN (test code = DARWIN) Association of Glomerular Filtration Rate (GFR) and Staging of Kidney Disease* + --+ --+ ------+| GFR (mL/min/1.73 m2) ?| With Kidney Damage ?| ?Without Kidney Damage+ --------+ --------+ +| ?>90 ?| ?Stage one ?| ? Normal ?+ ---+ ---+ -------+| ?60-89 ?| ?Stage two ?| ? Decreased GFR ? + --+ --+ ------+| ?30-59 ?| ?Stage three ?| ? Stage three ? + --+ --+ ------+| ?15-29 ?| ?Stage four ? | ? Stage four ?+ ---+ ---+ -------+| ?<15 (or dialysis) ? ?| ?Stage five ? | ? Stage five ?+ ---+ ---+ -------+ *Each stage assumes the associated GFR level has been in effect for at least three months. ?Stages 1 to 5, with or without kidney disease, indicate chronic kidney disease. Notes: Determination of stages one and two (with eGFR >59mL/min/1.73 m2) requires estimation of kidney damage for at least three months as defined by structural or functional abnormalities of the kidney, manifested by either:Pathological abnormalities or Markers of kidney damage (including abnormalities in the composition of the blood or urine or abnormalities in imaging tests). Lab Interpretation (test code = 64916-5) Abnormal [facility]IUM2023-10-02 23:47:52* Test Item Value Reference Range Interpretation Comme nts MAGNESIUM (test code = 4286209997) 2.0 mg/dL 1.7-2.4 Lab Interpretation (test cod e = 02409-4) Normal [facility] 23:47:52* Test Item Value Reference Range Interpretation Comme nts LIPASE (test code = 8856738059) 74 U/L 0-220 Lab Interpretation (test cod e = 30272-1) Normal [facility] WITH [id number] 23:36:30* Test Item Value Reference Range Interpretation Comme nts WBC (test code = 6690-2) 9.95 See_Comment [Automated [email or web address]] The system which generated this result transmitted reference range: 4.30 - 11.10 10*3/?L. The reference range was not used to interpret this result as normal/abnormal. RBC (test code = 789-8) 5.29 See_Comment H [Automated messa ge] The system which generated this result transmitted reference range: 3.93 - 5.25 10*6/?L. The reference range was not used to interpret this result as normal/abnormal. HGB (test code = 718-7) 14.6 g/dL 11.6-15.0 HCT (test code = 4544-3) 42.3 % 35.7-45.2 MCV (test code = 787-2) 80.0 fL 80.6-95.5 L MCH (test code = 785-6) 27.6 pg 25.9-32.8 MCHC (test code = 786-4) 34.5 g/dL 31.6-35.1 RDW-SD (test code = 75678-3) 39.3 fL 39.0-49.9 RDW-CV (test code = 788-0) 13.6 % 12.0-15.5 PLT (test code = 777-3) 305 See_Comment [Automated messa ge] The system which generated this result transmitted reference range: 166 - 358 10*3/?L. The reference range was not used to interpret this result as normal/abnormal. MPV (test code = 91268-8) 9.6 fL 9.5-12.9 NRBC/100 WBC (test code = 0403817314) 0.0 See_Comment [Automated [employer] ssage] The system which generated this result transmitted reference range: 0.0 - 10.0 /100 WBCs. The reference range was not used to interpret this result as normal/abnormal. NRBC x10^3 (test code = 2926163927) See_Comment [Automated messa ge] The system which generated this result transmitted reference range: 10*3/?L. The reference range was not used to interpret this result as normal/abnormal. GRAN MAT (NEUT) % (test code = 770-8) 66.5 % IMM GRAN % (test code = 1531095347) 0.30 % LYMPH % (test code = 736-9) 25.3 % MONO % (test code = 5905-5) 5.2 % EOS % (test code = 713-8) 2.3 % BASO % (test code = 706-2) 0.4 % GRAN MAT x10^3(ANC) (test code = 8015976256) 6.61 10*3/uL 1.88-7.09 IMM GRAN x10^3 (test code = 6832948170) 0.03 10*3/uL 0.00-0.06 LYMPH x10^3 (test code = 731-0) 2.52 10*3/uL 1.32-3.29 MONO x10^3 (test code = 742-7) 0.52 10*3/uL 0.33-0.92 EOS x10^3 (test code = 711-2) 0.23 10*3/uL 0.03-0.39 BASO x10^3 (test code = 704-7) 0.04 10*3/uL 0.01-0.07 Lab Interpretation (test code = 91003-6) Abnormal [facility] [id number] 02:51:00* Test Item Value Reference Range Interpretation Comme nts POCT PREG (test code = 1605) Negative On board controls acceptable with C Line (test code = 3574) Yes POCT PREG LOT # (test code = 3575) [id number] POCT PREG TEST DATE ( test code = 3576) 07/10/2024 Lab Interpretation (test cod e = 82327-9) Normal [facility] [id number] 03:26:00* Test Item Value Reference Range Interpretation Comme nts POCT PREG (test code = 1605) Negative On board controls acceptable with C Line (test code = 3574) Yes POCT PREG LOT # (test code = 3575) [id number] POCT PREG TEST DATE ( test code = 3576) Lab Interpretation (test cod e = 37651-5) Normal [facility] 22:35:38* Test Item Value Reference Range Interpretation Comme nts LIPASE (test code = 7503874042) 2049 U/L 0-220 H Lab Interpretation (test cod e = 42936-1) Abnormal [facility] WITH [id number] 22:30:10* Test Item Value Reference Range Interpretation Comme nts WBC (test code = 6690-2) 12.24 See_Comment H [Automated messa ge] The system which generated this result transmitted reference range: 4.30 - 11.10 10*3/?L. The reference range was not used to interpret this result as normal/abnormal. RBC (test code = 789-8) 5.37 See_Comment H [Automated messa ge] The system which generated this result transmitted reference range: 3.93 - 5.25 10*6/?L. The reference range was not used to interpret this result as normal/abnormal. HGB (test code = 718-7) 15.0 g/dL 11.6-15.0 HCT (test code = 4544-3) 43.3 % 35.7-45.2 MCV (test code = 787-2) 80.6 fL 80.6-95.5 MCH (test code = 785-6) 27.9 pg 25.9-32.8 MCHC (test code = 786-4) 34.6 g/dL 31.6-35.1 RDW-SD (test code = 05711-7) 42.7 fL 39.0-49.9 RDW-CV (test code = 788-0) 14.6 % 12.0-15.5 PLT (test code = 777-3) 331 See_Comment [Automated messa ge] The system which generated this result transmitted reference range: 166 - 358 10*3/?L. The reference range was not used to interpret this result as normal/abnormal. MPV (test code = 38234-6) 9.7 fL 9.5-12.9 NRBC/100 WBC (test code = 0029313840) 0.0 See_Comment [Automated [employer] ssage] The system which generated this result transmitted reference range: 0.0 - 10.0 /100 WBCs. The reference range was not used to interpret this result as normal/abnormal. NRBC x10^3 (test code = 6958638480) See_Comment [Automated messa ge] The system which generated this result transmitted reference range: 10*3/?L. The reference range was not used to interpret this result as normal/abnormal. GRAN MAT (NEUT) % (test code = 770-8) 65.7 % IMM GRAN % (test code = 1603843976) 0.50 % LYMPH % (test code = 736-9) 26.5 % MONO % (test code = 5905-5) 5.4 % EOS % (test code = 713-8) 1.5 % BASO % (test code = 706-2) 0.4 % GRAN MAT x10^3(ANC) (test code = 0178055375) 8.05 10*3/uL 1.88-7.09 H IMM GRAN x10^3 (test code = 0223108715) 0.06 10*3/uL 0.00-0.06 LYMPH x10^3 (test code = 731-0) 3.24 10*3/uL 1.32-3.29 MONO x10^3 (test code = 742-7) 0.66 10*3/uL 0.33-0.92 EOS x10^3 (test code = 711-2) 0.18 10*3/uL 0.03-0.39 BASO x10^3 (test code = 704-7) 0.05 10*3/uL 0.01-0.07 Lab Interpretation (test code = 01061-0) Abnormal [facility]. METABOLIC PANEL ([id number])2023-02-15 22:27:47* Test Item Value Reference Range Interpretation Comme nts NA (test code = 1773092042) 138 mmol/L 135-145 K (test code = 8783392207) 3.7 mmol/L 3.5-5.0 CL (test code = 4166714323) 105 mmol/L 98-108 CO2 TOTAL (test code = 2616443083) 23 mmol/L 23-31 AGAP (test code = 8122714124) 10 2-16 BUN (test code = 9316324901) 6 mg/dL 7-23 L GLUCOSE (test code = 8997211644) 92 mg/dL 70-110 CREATININE (test code = 6042070993) 0.77 mg/dL 0.50-1.04 TOTAL BILI (test code = 1398154592) 0.7 mg/dL 0.1-1.1 CALCIUM (test code = 6554868915) 9.0 mg/dL 8.6-10.6 T PROTEIN (test code = 4514386354) 7.5 g/dL 6.3-8.2 ALBUMIN (test code = 9733713217) 4.0 g/dL 3.5-5.0 ALK PHOS (test code = 0980227663) 101 U/L 34-122 ALTv (test code = 1742-6) 25 U/L 5-35 AST(SGOT) (test code = 5314403261) 36 U/L 13-40 eGFR (test code = 0519499011) 81.8 mL/min/1.73m2 DARWIN (test code = DARWIN) Association of Glomerular Filtration Rate (GFR) and Staging of Kidney Disease* + --+ --+ ------+| GFR (mL/min/1.73 m2) ?| With Kidney Damage ?| ?Without Kidney Damage+ --------+ --------+ +| ?>90 ?| ?Stage one ?| ? Normal ?+ ---+ ---+ -------+| ?60-89 ?| ?Stage two ?| ? Decreased GFR ? + --+ --+ ------+| ?30-59 ?| ?Stage three ?| ? Stage three ? + --+ --+ ------+| ?15-29 ?| ?Stage four ? | ? Stage four ?+ ---+ ---+ -------+| ?<15 (or dialysis) ? ?| ?Stage five ? | ? Stage five ?+ ---+ ---+ -------+ *Each stage assumes the associated GFR level has been in effect for at least three months. ?Stages 1 to 5, with or without kidney disease, indicate chronic kidney disease. Notes: Determination of stages one and two (with eGFR >59mL/min/1.73 m2) requires estimation of kidney damage for at least three months as defined by structural or functional abnormalities of the kidney, manifested by either:Pathological abnormalities or Markers of kidney damage (including abnormalities in the composition of the blood or urine or abnormalities in imaging tests). Lab Interpretation (test code = 81398-7) Abnormal [facility]D-[id number] 20:56:28* Test Item Value Reference Range Interpretation Comments D-DIMER (test code = 7246994434) 0.44 See_Comment H [Automated message] The system which generated this result transmitted reference range: <0.41 ?g/mL (FEU). The reference range was not used to interpret this result as normal/abnormal. DARWIN (test code = DARWIN) This test may be used in conjunction with a clinical pretest probability (PTP) assessment model to exclude venous thromboembolism (VTE) in patients suspected of deep venous thrombosis (DVT) and pulmonary embolism (PE) A D-Dimer value less than 0.50 ?g/ml (FEU) has a negative predicative value of 96 to 100% (95% CI)and 97 to 100% (95% CI) as an aid in the diagnosis of deep vein thrombosis (DVT) and pulmonary embolism when there is low or moderate pretest probability of PE or DVT. D-Dimer values are expressed in initial fibrinogen equivalent units (FEU)" The assay results should be used with other information, including the clinical context, in forming a diagnosis. Lab Interpretation (test code = 16086-0) Abnormal [facility] [id number] 01:15:16* Test Item Value Reference Range Interpretation Comments TROPONIN I (test code = 3660607500) 0.001 ng/mL See_Comment [Automated message] The system which generated this result transmitted reference range: <=0.034. The reference range was not used to interpret this result as normal/abnormal. DARWIN (test code = DARWIN) Reference (Normal) Range (defined by the 99th percentile reference limit): <= 0.034 ng/mL Note: Cardiac troponin begins to rise 3-4 hours after the onset of ischemia. Repeat in 4-6 hours if the sample was drawn within 3-4 hours of the onset of the symptom and found normal. Diagnosis of myocardial injury is made with acute changes in cTn concentrations with at least one serial sample above the 99th percentile upper reference limit (URL), taken together with the patient's clinical presentation. Biotin has been reported to cause a negative bias, interpret results relative to patient's use of biotin. Lab Interpretation (test code = 82328-7) Normal [facility] [id number] 22:52:31* Test Item Value Reference Range Interpretation Comments TROPONIN I (test code = 2491470834) 0.001 ng/mL See_Comment [Automated message] The system which generated this result transmitted reference range: <=0.034. The reference range was not used to interpret this result as normal/abnormal. DARWIN (test code = DARWIN) Reference (Normal) Range (defined by the 99th percentile reference limit): <= 0.034 ng/mL Note: Cardiac troponin begins to rise 3-4 hours after the onset of ischemia. Repeat in 4-6 hours if the sample was drawn within 3-4 hours of the onset of the symptom and found normal. Diagnosis of myocardial injury is made with acute changes in cTn concentrations with at least one serial sample above the 99th percentile upper reference limit (URL), taken together with the patient's clinical presentation. Biotin has been reported to cause a negative bias, interpret results relative to patient's use of biotin. Lab Interpretation (test code = 89718-0) Normal [facility] [id number] 22:49:33* Test Item Value Reference Range Interpretation Comme nts NT-proBNP (test code = 5595858427) 145 pg/mL See_Comment H [Automated message] The system which generated this result transmitted reference range: <=125. The reference range was not used to interpret this result as normal/abnormal. DARWIN (test code = DARWIN) Biotin has been reported to cause a negative bias, interpret results relative to patient's use of biotin. Lab Interpretation (test code = 68166-7) Abnormal [facility] METABOLIC PANEL (NA, K, CL, CO2, GLUCOSE, BUN, CREATININE, CA)2022-01-09 22:40:32* Test Item Value Reference Range Interpretation Comme nts NA (test code = 3632436332) 142 mmol/L 135-145 K (test code = 2409388415) 3.3 mmol/L 3.5-5.0 L CL (test code = 6037535980) 109 mmol/L 98-108 H CO2 TOTAL (test code = 7113066166) 22 mmol/L 23-31 L AGAP (test code = 1005322182) 2-16 BUN (test code = 2761276979) 9 mg/dL 7-23 GLUCOSE (test code = 8261335616) 116 mg/dL 70-110 H CREATININE (test code = 5833642778) 0.69 mg/dL 0.50-1.04 CALCIUM (test code = 8113415879) 9.2 mg/dL 8.6-10.6 eGFR (test code = 1123836206) mL/min/1.73m2 DARWIN (test code = DARWIN) Association of Glomerular Filtration Rate (GFR) and Staging of Kidney Disease* + --+ --+ ------+| GFR (mL/min/1.73 m2) ?| With Kidney Damage ?| ?Without Kidney Damage+ --------+ --------+ +| ?>90 ?| ?Stage one ?| ? Normal ?+ ---+ ---+ -------+| ?60-89 ?| ?Stage two ?| ? Decreased GFR ? + --+ --+ ------+| ?30-59 ?| ?Stage three ?| ? Stage three ? + --+ --+ ------+| ?15-29 ?| ?Stage four ? | ? Stage four ?+ ---+ ---+ -------+| ?<15 (or dialysis) ? ?| ?Stage five ? | ? Stage five ?+ ---+ ---+ -------+ *Each stage assumes the associated GFR level has been in effect for at least three months. ?Stages 1 to 5, with or without kidney disease, indicate chronic kidney disease. Notes: Determination of stages one and two (with eGFR >59mL/min/1.73 m2) requires estimation of kidney damage for at least three months as defined by structural or functional abnormalities of the kidney, manifested by either:Pathological abnormalities or Markers of kidney damage (including abnormalities in the composition of the blood or urine or abnormalities in imaging tests). Lab Interpretation (test code = 48513-9) Abnormal [facility] WITH [id number] 22:29:09* Test Item Value Reference Range Interpretation Comme nts WBC (test code = 6690-2) See_Comment [Automated [email or web address]] The system which generated this result transmitted reference range: 4.30 - 11.10 10*3/?L. The reference range was not used to interpret this result as normal/abnormal. RBC (test code = 789-8) See_Comment [Automated [email or web address]] The system which generated this result transmitted reference range: 3.93 - 5.25 10*6/?L. The reference range was not used to interpret this result as normal/abnormal. HGB (test code = 718-7) 13.8 g/dL 11.6-15.0 HCT (test code = 4544-3) 40.1 % 35.7-45.2 MCV (test code = 787-2) 79.9 fL 80.6-95.5 L MCH (test code = 785-6) 27.5 pg 25.9-32.8 MCHC (test code = 786-4) 34.4 g/dL 31.6-35.1 RDW-SD (test code = 10420-6) 40.7 fL 39.0-49.9 RDW-CV (test code = 788-0) 14.1 % 12.0-15.5 PLT (test code = 777-3) See_Comment [Automated messa ge] The system which generated this result transmitted reference range: 166 - 358 10*3/?L. The reference range was not used to interpret this result as normal/abnormal. MPV (test code = 96460-3) 9.6 fL 9.5-12.9 NRBC/100 WBC (test code = 0017266020) See_Comment [Automated [employer] ssage] The system which generated this result transmitted reference range: 0.0 - 10.0 /100 WBCs. The reference range was not used to interpret this result as normal/abnormal. NRBC x10^3 (test code = 3132838895) <0.01 See_Comment [Automated [employer]] The system which generated this result transmitted reference range: 10*3/?L. The reference range was not used to interpret this result as normal/abnormal. GRAN MAT (NEUT) % (test code = 770-8) 54.7 % IMM GRAN % (test code = 5805645802) 0.40 % LYMPH % (test code = 736-9) 33.8 % MONO % (test code = 5905-5) 7.1 % EOS % (test code = 713-8) 3.3 % BASO % (test code = 706-2) 0.7 % GRAN MAT x10^3(ANC) (test code = 3890423503) 4.87 10*3/uL 1.88-7.09 IMM GRAN x10^3 (test code = 4949860479) 0.04 10*3/uL 0.00-0.06 LYMPH x10^3 (test code = 731-0) 3.01 10*3/uL 1.32-3.29 MONO x10^3 (test code = 742-7) 0.63 10*3/uL 0.33-0.92 EOS x10^3 (test code = 711-2) 0.29 10*3/uL 0.03-0.39 BASO x10^3 (test code = 704-7) 0.06 10*3/uL 0.01-0.07 Lab Interpretation (test code = 94273-4) Abnormal [facility] [id number] 06:45:45* Test Item Value Reference Range Interpretation Comments TROPONIN I (test code = 4115881887) 0.000 ng/mL See_Comment [Automated message] The system which generated this result transmitted reference range: <=0.034. The reference range was not used to interpret this result as normal/abnormal. DARWIN (test code = DARWIN) Reference (Normal) Range (defined by the 99th percentile reference limit): <= 0.034 ng/mL Note: Cardiac troponin begins to rise 3-4 hours after the onset of ischemia. Repeat in 4-6 hours if the sample was drawn within 3-4 hours of the onset of the symptom and found normal. Diagnosis of myocardial injury is made with acute changes in cTn concentrations with at least one serial sample above the 99th percentile upper reference limit (URL), taken together with the patient's clinical presentation. Biotin has been reported to cause a negative bias, interpret results relative to patient's use of biotin. Lab Interpretation (test code = 40074-7) Normal [facility] ResourcesTHYROID STIMULATING [id number] 05:00:55 * Test Item Value Reference Range Interpretation Comme nts TSH (test code = 4134575809) See_Comment [Automated messa ge] The system which generated this result transmitted reference range: 0.45 - 4.70 mIU/L. The reference range was not used to interpret this result as normal/abnormal. Lab Interpretation (test code = 39963-1) Normal [facility] [id number] 04:47:50* Test Item Value Reference Range Interpretation Comme nts FREE T4 (test code = 2838660996) See_Comment [Automated messa ge] The system which generated this result transmitted reference range: 0.78 - 2.20 ng/dL:. The reference range was not used to interpret this result as normal/abnormal. Lab Interpretation (test code = 48099-4) Normal [facility] [id number] 04:47:10* Test Item Value Reference Range Interpretation Comme nts FREE T3 (test code = 4547749551) 4.37 pg/mL 2.77-5.27 Lab Interpretation (test cod e = 94793-0) Normal [facility] [id number] 04:42:07* Test Item Value Reference Range Interpretation Comments TROPONIN I (test code = 7491076799) 0.001 ng/mL See_Comment [Automated message] The system which generated this result transmitted reference range: <=0.034. The reference range was not used to interpret this result as normal/abnormal. DARWIN (test code = DARWIN) Reference (Normal) Range (defined by the 99th percentile reference limit): <= 0.034 ng/mL Note: Cardiac troponin begins to rise 3-4 hours after the onset of ischemia. Repeat in 4-6 hours if the sample was drawn within 3-4 hours of the onset of the symptom and found normal. Diagnosis of myocardial injury is made with acute changes in cTn concentrations with at least one serial sample above the 99th percentile upper reference limit (URL), taken together with the patient's clinical presentation. Biotin has been reported to cause a negative bias, interpret results relative to patient's use of biotin. Lab Interpretation (test code = 40670-6) Normal [facility]. METABOLIC PANEL ([id number])2021-12-14 04:30:28* Test Item Value Reference Range Interpretation Comme nts NA (test code = 5815589959) 141 mmol/L 135-145 K (test code = 3202843090) 3.6 mmol/L 3.5-5.0 CL (test code = 5932489362) 111 mmol/L 98-108 H CO2 TOTAL (test code = 2769859634) 19 mmol/L 23-31 L AGAP (test code = 8226211786) 2-16 BUN (test code = 4148756887) 15 mg/dL 7-23 GLUCOSE (test code = 9151971600) 113 mg/dL 70-110 H CREATININE (test code = 7175126291) 1.05 mg/dL 0.50-1.04 H TOTAL BILI (test code = 5860366031) 0.2 mg/dL 0.1-1.1 CALCIUM (test code = 1796436916) 9.8 mg/dL 8.6-10.6 T PROTEIN (test code = 7928247006) 6.8 g/dL 6.3-8.2 ALBUMIN (test code = 3563615803) 4.2 g/dL 3.5-5.0 ALK PHOS (test code = 1905356951) 73 U/L 34-122 ALTv (test code = 1742-6) 16 U/L 5-35 AST(SGOT) (test code = 6356679190) 19 U/L 13-40 eGFR (test code = 8921777101) mL/min/1.73m2 DARWIN (test code = DARWIN) Association of Glomerular Filtration Rate (GFR) and Staging of Kidney Disease* + --+ --+ ------+| GFR (mL/min/1.73 m2) ?| With Kidney Damage ?| ?Without Kidney Damage+ --------+ --------+ +| ?>90 ?| ?Stage one ?| ? Normal ?+ ---+ ---+ -------+| ?60-89 ?| ?Stage two ?| ? Decreased GFR ? + --+ --+ ------+| ?30-59 ?| ?Stage three ?| ? Stage three ? + --+ --+ ------+| ?15-29 ?| ?Stage four ? | ? Stage four ?+ ---+ ---+ -------+| ?<15 (or dialysis) ? ?| ?Stage five ? | ? Stage five ?+ ---+ ---+ -------+ *Each stage assumes the associated GFR level has been in effect for at least three months. ?Stages 1 to 5, with or without kidney disease, indicate chronic kidney disease. Notes: Determination of stages one and two (with eGFR >59mL/min/1.73 m2) requires estimation of kidney damage for at least three months as defined by structural or functional abnormalities of the kidney, manifested by either:Pathological abnormalities or Markers of kidney damage (including abnormalities in the composition of the blood or urine or abnormalities in imaging tests). Lab Interpretation (test code = 68549-0) Abnormal [facility]ASE20[facility] 04:29:48* Test Item Value Reference Range Interpretation Comme nts LIPASE (test code = 3788172302) 225 U/L 0-220 H Lab Interpretation (test cod e = 71367-5) Abnormal [facility]PO[facility] [id number] 04:20:00* Test Item Value Reference Range Interpretation Comme nts POCT PREG (test code = 1605) negative On board controls acceptable with C Line (test code = 3574) present POCT PREG LOT # (test code = 3575) [id number] POCT PREG TEST DATE ( test code = 3576) 2023-05-07 Lab Interpretation (test cod e = 70780-7) Normal [facility] ResourcesCBC WITH [id number] 04:01:25* Test Item Value Reference Range Interpretation Comme nts WBC (test code = 6690-2) See_Comment [Automated [place] [employer] ge] The system which generated this result transmitted reference range: 4.30 - 11.10 10*3/?L. The reference range was not used to interpret this result as normal/abnormal. RBC (test code = 789-8) See_Comment H [Automated [place] [employer]] The system which generated this result transmitted reference range: 3.93 - 5.25 10*6/?L. The reference range was not used to interpret this result as normal/abnormal. HGB (test code = 718-7) 14.5 g/dL 11.6-15.0 HCT (test code = 4544-3) 42.3 % 35.7-45.2 MCV (test code = 787-2) 79.2 fL 80.6-95.5 L MCH (test code = 785-6) 27.2 pg 25.9-32.8 MCHC (test code = 786-4) 34.3 g/dL 31.6-35.1 RDW-SD (test code = 30896-0) 39.5 fL 39.0-49.9 RDW-CV (test code = 788-0) 13.6 % 12.0-15.5 PLT (test code = 777-3) See_Comment [Automated messa ge] The system which generated this result transmitted reference range: 166 - 358 10*3/?L. The reference range was not used to interpret this result as normal/abnormal. MPV (test code = 27836-0) 9.9 fL 9.5-12.9 NRBC/100 WBC (test code = 4895211097) See_Comment [Automated [employer] ssage] The system which generated this result transmitted reference range: 0.0 - 10.0 /100 WBCs. The reference range was not used to interpret this result as normal/abnormal. NRBC x10^3 (test code = 0455290039) <0.01 See_Comment [Automated messa ge] The system which generated this result transmitted reference range: 10*3/?L. The reference range was not used to interpret this result as normal/abnormal. GRAN MAT (NEUT) % (test code = 770-8) 51.5 % IMM GRAN % (test code = 2276355610) 0.50 % LYMPH % (test code = 736-9) 35.8 % MONO % (test code = 5905-5) 9.4 % EOS % (test code = 713-8) 2.2 % BASO % (test code = 706-2) 0.6 % GRAN MAT x10^3(ANC) (test code = 1449053117) 5.37 10*3/uL 1.88-7.09 IMM GRAN x10^3 (test code = 6553577893) 0.05 10*3/uL 0.00-0.06 LYMPH x10^3 (test code = 731-0) 3.73 10*3/uL 1.32-3.29 H MONO x10^3 (test code = 742-7) 0.98 10*3/uL 0.33-0.92 H EOS x10^3 (test code = 711-2) 0.23 10*3/uL 0.03-0.39 BASO x10^3 (test code = 704-7) 0.06 10*3/uL 0.01-0.07 Lab Interpretation (test code = 45492-9) Abnormal [facility] [id number] 04:04:13* Test Item Value Reference Range Interpretation Comments TROPONIN I (test code = 3465690628) 0.001 ng/mL See_Comment [Automated message] The system which generated this result transmitted reference range: <=0.034. The reference range was not used to interpret this result as normal/abnormal. DARWIN (test code = DARWIN) Reference (Normal) Range (defined by the 99th percentile reference limit): <= 0.034 ng/mL Note: Cardiac troponin begins to rise 3-4 hours after the onset of ischemia. Repeat in 4-6 hours if the sample was drawn within 3-4 hours of the onset of the symptom and found normal. Diagnosis of myocardial injury is made with acute changes in cTn concentrations with at least one serial sample above the 99th percentile upper reference limit (URL), taken together with the patient's clinical presentation. Biotin has been reported to cause a negative bias, interpret results relative to patient's use of biotin. Lab Interpretation (test code = 16862-1) Normal [facility]PO[facility] [id number] 02:56:00* Test Item Value Reference Range Interpretation Comme nts POCT PREG (test code = 1605) negative On board controls acceptable with C Line (test code = 3574) present POCT PREG LOT # (test code = 3575) [id number] POCT PREG TEST DATE ( test code = 3576) 2023-04-06 Lab Interpretation (test cod e = 71726-6) Normal [facility] [id number] 02:15:30* Test Item Value Reference Range Interpretation Comments TROPONIN I (test code = 4574985567) 0.000 ng/mL See_Comment [Automated message] The system which generated this result transmitted reference range: <=0.034. The reference range was not used to interpret this result as normal/abnormal. DARWIN (test code = DARWIN) Reference (Normal) Range (defined by the 99th percentile reference limit): <= 0.034 ng/mL Note: Cardiac troponin begins to rise 3-4 hours after the onset of ischemia. Repeat in 4-6 hours if the sample was drawn within 3-4 hours of the onset of the symptom and found normal. Diagnosis of myocardial injury is made with acute changes in cTn concentrations with at least one serial sample above the 99th percentile upper reference limit (URL), taken together with the patient's clinical presentation. Biotin has been reported to cause a negative bias, interpret results relative to patient's use of biotin. Lab Interpretation (test code = 87492-2) Normal [facility] ResourcesN-TERMINAL [id number]-[id number] 02:12:14* Test Item Value Reference Range Interpretation Comme nts NT-proBNP (test code = 4606404561) 109 pg/mL See_Comment [Automated message] The system which generated this result transmitted reference range: <=125. The reference range was not used to interpret this result as normal/abnormal. DARWIN (test code = DARWIN) Biotin has been reported to cause a negative bias, interpret results relative to patient's use of biotin. Lab Interpretation (test code = 96780-1) Normal [facility] ResourcesCOMP. METABOLIC PANEL (49317)2021-11-12 02:04:12* Test Item Value Reference Range Interpretation Comme nts NA (test code = 1790987197) 140 mmol/L 135-145 K (test code = 4361663365) 4.0 mmol/L 3.5-5.0 CL (test code = 4270727575) 111 mmol/L 98-108 H CO2 TOTAL (test code = 3429433184) 17 mmol/L 23-31 L AGAP (test code = 5924192386) 2-16 BUN (test code = 0622929842) 9 mg/dL 7-23 GLUCOSE (test code = 6182441622) 105 mg/dL 70-110 CREATININE (test code = 8846381895) 0.72 mg/dL 0.50-1.04 TOTAL BILI (test code = 1861467380) 0.4 mg/dL 0.1-1.1 CALCIUM (test code = 0685911361) 9.3 mg/dL 8.6-10.6 T PROTEIN (test code = 3707952396) 6.6 g/dL 6.3-8.2 ALBUMIN (test code = 7980690760) 4.0 g/dL 3.5-5.0 ALK PHOS (test code = 7680785792) 70 U/L 34-122 ALTv (test code = 1742-6) 19 U/L 5-35 AST(SGOT) (test code = 5290921406) 21 U/L 13-40 eGFR (test code = 8481413505) mL/min/1.73m2 DARWIN (test code = DARWIN) Association of Glomerular Filtration Rate (GFR) and Staging of Kidney Disease* + --+ --+ ------+| GFR (mL/min/1.73 m2) ?| With Kidney Damage ?| ?Without Kidney Damage+ --------+ --------+ +| ?>90 ?| ?Stage one ?| ? Normal ?+ ---+ ---+ -------+| ?60-89 ?| ?Stage two ?| ? Decreased GFR ? + --+ --+ ------+| ?30-59 ?| ?Stage three ?| ? Stage three ? + --+ --+ ------+| ?15-29 ?| ?Stage four ? | ? Stage four ?+ ---+ ---+ -------+| ?<15 (or dialysis) ? ?| ?Stage five ? | ? Stage five ?+ ---+ ---+ -------+ *Each stage assumes the associated GFR level has been in effect for at least three months. ?Stages 1 to 5, with or without kidney disease, indicate chronic kidney disease. Notes: Determination of stages one and two (with eGFR >59mL/min/1.73 m2) requires estimation of kidney damage for at least three months as defined by structural or functional abnormalities of the kidney, manifested by either:Pathological abnormalities or Markers of kidney damage (including abnormalities in the composition of the blood or urine or abnormalities in imaging tests). Lab Interpretation (test code = 27603-5) Abnormal [facility] ResourcesL[facility]ASE[facility]22-[facility]-08 02:03:32* Test Item Value Reference Range Interpretation Comme nts LIPASE (test code = 3756579673) 173 U/L 0-220 Lab Interpretation (test cod e = 62809-4) Normal [facility] ResourcesCB WITH [id number] 01:43:53* Test Item Value Reference Range Interpretation Comme nts WBC (test code = 6690-2) See_Comment [Automated messa ge] The system which generated this result transmitted reference range: 4.30 - 11.10 10*3/?L. The reference range was not used to interpret this result as normal/abnormal. RBC (test code = 789-8) See_Comment [Automated [place] [employer] ge] The system which generated this result transmitted reference range: 3.93 - 5.25 10*6/?L. The reference range was not used to interpret this result as normal/abnormal. HGB (test code = 718-7) 13.7 g/dL 11.6-15.0 HCT (test code = 4544-3) 40.6 % 35.7-45.2 MCV (test code = 787-2) 80.4 fL 80.6-95.5 L MCH (test code = 785-6) 27.1 pg 25.9-32.8 MCHC (test code = 786-4) 33.7 g/dL 31.6-35.1 RDW-SD (test code = 10972-6) 41.3 fL 39.0-49.9 RDW-CV (test code = 788-0) 14.3 % 12.0-15.5 PLT (test code = 777-3) See_Comment [Automated [place] [employer] ge] The system which generated this result transmitted reference range: 166 - 358 10*3/?L. The reference range was not used to interpret this result as normal/abnormal. MPV (test code = 11356-7) 9.7 fL 9.5-12.9 NRBC/100 WBC (test code = 4193203931) See_Comment [Automated [employer] ssage] The system which generated this result transmitted reference range: 0.0 - 10.0 /100 WBCs. The reference range was not used to interpret this result as normal/abnormal. NRBC x10^3 (test code = 8080148494) <0.01 See_Comment [Automated [place] [employer] ge] The system which generated this result transmitted reference range: 10*3/?L. The reference range was not used to interpret this result as normal/abnormal. GRAN MAT (NEUT) % (test code = 770-8) 62.6 % IMM GRAN % (test code = 8707119653) 0.50 % LYMPH % (test code = 736-9) 27.0 % MONO % (test code = 5905-5) 6.5 % EOS % (test code = 713-8) 2.9 % BASO % (test code = 706-2) 0.5 % GRAN MAT x10^3(ANC) (test code = 9070227897) 6.30 10*3/uL 1.88-7.09 IMM GRAN x10^3 (test code = 1552690710) 0.05 10*3/uL 0.00-0.06 LYMPH x10^3 (test code = 731-0) 2.71 10*3/uL 1.32-3.29 MONO x10^3 (test code = 742-7) 0.65 10*3/uL 0.33-0.92 EOS x10^3 (test code = 711-2) 0.29 10*3/uL 0.03-0.39 BASO x10^3 (test code = 704-7) 0.05 10*3/uL 0.01-0.07 Lab Interpretation (test code = 18753-5) Abnormal [facility]PO[facility] [id number] 02:21:00* Test Item Value Reference Range Interpretation Comme nts POCT PREG (test code = 1605) Negative On board controls acceptable with C Line (test code = 3574) Present Lab Interpretation (test cod e = 42277-3) Normal [facility] ResourcesComplete Metabolic Mduyy5521-63-47 02:05:50* Test Item Value Reference Range Interpretation Comme nts NA (test code = 2938801902) 137 mmol/L 135-145 K (test code = 8955077919) 3.9 mmol/L 3.5-5.0 CL (test code = 5066469551) 109 mmol/L 98-108 H CO2 TOTAL (test code = 8423480698) 19 mmol/L 23-31 L AGAP (test code = 5108394197) 2-16 BUN (test code = 1933044031) 10 mg/dL 7-23 GLUCOSE (test code = 3312285756) 101 mg/dL 70-110 CREATININE (test code = 1507476660) 0.80 mg/dL 0.50-1.04 TOTAL BILI (test code = 6804855788) 0.3 mg/dL 0.1-1.1 CALCIUM (test code = 4156958374) 8.8 mg/dL 8.6-10.6 T PROTEIN (test code = 1716627729) 6.6 g/dL 6.3-8.2 ALBUMIN (test code = 2627901971) 4.0 g/dL 3.5-5.0 ALK PHOS (test code = 6404693731) 71 U/L 34-122 ALTv (test code = 1742-6) 18 U/L 5-35 AST(SGOT) (test code = 5085648195) 20 U/L 13-40 eGFR (test code = 4091379906) mL/min/1.73m2 DARWIN (test code = DARWIN) Association of Glomerular Filtration Rate (GFR) and Staging of Kidney Disease* + --+ --+ ------+| GFR (mL/min/1.73 m2) ?| With Kidney Damage ?| ?Without Kidney Damage+ --------+ --------+ +| ?>90 ?| ?Stage one ?| ? Normal ?+ ---+ ---+ -------+| ?60-89 ?| ?Stage two ?| ? Decreased GFR ? + --+ --+ ------+| ?30-59 ?| ?Stage three ?| ? Stage three ? + --+ --+ ------+| ?15-29 ?| ?Stage four ? | ? Stage four ?+ ---+ ---+ -------+| ?<15 (or dialysis) ? ?| ?Stage five ? | ? Stage five ?+ ---+ ---+ -------+ *Each stage assumes the associated GFR level has been in effect for at least three months. ?Stages 1 to 5, with or without kidney disease, indicate chronic kidney disease. Notes: Determination of stages one and two (with eGFR >59mL/min/1.73 m2) requires estimation of kidney damage for at least three months as defined by structural or functional abnormalities of the kidney, manifested by either:Pathological abnormalities or Markers of kidney damage (including abnormalities in the composition of the blood or urine or abnormalities in imaging tests). Lab Interpretation (test code = 53432-9) Abnormal [facility] ResourcesLipase, [id number] 02:05:25* Test Item Value Reference Range Interpretation Comme nts LIPASE (test code = 5525668331) 96 U/L 0-220 Lab Interpretation (test cod e = 94919-1) Normal [facility] with Dzybizzvrneq7464-55-43 01:53:06* Test Item Value Reference Range Interpretation Comme nts WBC (test code = 6690-2) See_Comment H [Automated messa ge] The system which generated this result transmitted reference range: 4.30 - 11.10 10*3/?L. The reference range was not used to interpret this result as normal/abnormal. RBC (test code = 789-8) See_Comment H [Automated messa ge] The system which generated this result transmitted reference range: 3.93 - 5.25 10*6/?L. The reference range was not used to interpret this result as normal/abnormal. HGB (test code = 718-7) 14.5 g/dL 11.6-15.0 HCT (test code = 4544-3) 42.3 % 35.7-45.2 MCV (test code = 787-2) 79.1 fL 80.6-95.5 L MCH (test code = 785-6) 27.1 pg 25.9-32.8 MCHC (test code = 786-4) 34.3 g/dL 31.6-35.1 RDW-SD (test code = 49795-7) 40.5 fL 39.0-49.9 RDW-CV (test code = 788-0) 14.4 % 12.0-15.5 PLT (test code = 777-3) See_Comment [Automated messa ge] The system which generated this result transmitted reference range: 166 - 358 10*3/?L. The reference range was not used to interpret this result as normal/abnormal. MPV (test code = 89737-2) 9.4 fL 9.5-12.9 L NRBC/100 WBC (test code = 0792385540) See_Comment [Automated [employer] ssage] The system which generated this result transmitted reference range: 0.0 - 10.0 /100 WBCs. The reference range was not used to interpret this result as normal/abnormal. NRBC x10^3 (test code = 0943159966) <0.01 See_Comment [Automated messa ge] The system which generated this result transmitted reference range: 10*3/?L. The reference range was not used to interpret this result as normal/abnormal. GRAN MAT (NEUT) % (test code = 770-8) 59.8 % IMM GRAN % (test code = 7995197554) 0.40 % LYMPH % (test code = 736-9) 31.0 % MONO % (test code = 5905-5) 6.3 % EOS % (test code = 713-8) 2.0 % BASO % (test code = 706-2) 0.5 % GRAN MAT x10^3(ANC) (test code = 7892355823) 6.73 10*3/uL 1.88-7.09 IMM GRAN x10^3 (test code = 7832364567) 0.05 10*3/uL 0.00-0.06 LYMPH x10^3 (test code = 731-0) 3.50 10*3/uL 1.32-3.29 H MONO x10^3 (test code = 742-7) 0.71 10*3/uL 0.33-0.92 EOS x10^3 (test code = 711-2) 0.23 10*3/uL 0.03-0.39 BASO x10^3 (test code = 704-7) 0.06 10*3/uL 0.01-0.07 Lab Interpretation (test code = 77496-9) Abnormal [facility] Rzzo1331-15-51 01:45:00* Test Item Value Reference Range Interpretation Comme nts POCT PREG (test code = 1605) negatibe On board controls acceptable with C Line (test code = 3574) present POCT PREG LOT # (test code = 3575) [id number] POCT PREG TEST DATE ( test code = 3576) 09/04/2022 Lab Interpretation (test cod e = 97251-0) Normal [facility] [id number] 06:35:00* Test Item Value Reference Range Interpretation Comme nts POCT PREG (test code = 1605) negative On board controls acceptable with C Line (test code = 3574) present POCT PREG LOT # (test code = 3575) [id number] POCT PREG TEST DATE ( test code = 3576) Lab Interpretation (test cod e = 27174-5) Normal [facility] ResourcesTR[facility]IN F0357-56-55 09:09:55* Test Item Value Reference Range Interpretation Comments TROPONIN I (test code = 8565538376) 0.001 ng/mL See_Comment [Automated message] The system which generated this result transmitted reference range: <=0.034. The reference range was not used to interpret this result as normal/abnormal. DARWIN (test code = DARWIN) Reference (Normal) Range (defined by the 99th percentile reference limit): <= 0.034 ng/mL Note: Cardiac troponin begins to rise 3-4 hours after the onset of ischemia. Repeat in 4-6 hours if the sample was drawn within 3-4 hours of the onset of the symptom and found normal. Diagnosis of myocardial injury is made with acute changes in cTn concentrations with at least one serial sample above the 99th percentile upper reference limit (URL), taken together with the patient's clinical presentation. Biotin has been reported to cause a negative bias, interpret results relative to patient's use of biotin. Lab Interpretation (test code = 79268-5) Normal [facility] ResourcesD-FWLRU3621-20-28 07:23:51* Test Item Value Reference Range Interpretation Comments D-DIMER (test code = 8333312673) See_Comment [Automated message] The system which generated this result transmitted reference range: <0.41 ?g/mL (FEU). The reference range was not used to interpret this result as normal/abnormal. DARWIN (test code = DARWIN) This test may be used in conjunction with a clinical pretest probability (PTP) assessment model to exclude venous thromboembolism (VTE) in patients suspected of deep venous thrombosis (DVT) and pulmonary embolism (PE) A D-Dimer value less than 0.50 ?g/ml (FEU) has a negative predicative value of 96 to 100% (95% CI)and 97 to 100% (95% CI) as an aid in the diagnosis of deep vein thrombosis (DVT) and pulmonary embolism when there is low or moderate pretest probability of PE or DVT. D-Dimer values are expressed in initial fibrinogen equivalent units (FEU)" The assay results should be used with other information, including the clinical context, in forming a diagnosis. Lab Interpretation (test code = 68214-8) Normal [facility] ResourcesLIPASE2021-11-21 06:11:26* Test Item Value Reference Range Interpretation Comme nts LIPASE (test code = 5492424223) 155 U/L 0-220 Lab Interpretation (test cod e = 04348-1) Normal [facility] Resources[facility]OP[facility]IN [id number] 06:06:05* Test Item Value Reference Range Interpretation Comments TROPONIN I (test code = 9622731861) 0.002 ng/mL See_Comment [Automated message] The system which generated this result transmitted reference range: <=0.034. The reference range was not used to interpret this result as normal/abnormal. DARWIN (test code = DARWIN) Reference (Normal) Range (defined by the 99th percentile reference limit): <= 0.034 ng/mL Note: Cardiac troponin begins to rise 3-4 hours after the onset of ischemia. Repeat in 4-6 hours if the sample was drawn within 3-4 hours of the onset of the symptom and found normal. Diagnosis of myocardial injury is made with acute changes in cTn concentrations with at least one serial sample above the 99th percentile upper reference limit (URL), taken together with the patient's clinical presentation. Biotin has been reported to cause a negative bias, interpret results relative to patient's use of biotin. Lab Interpretation (test code = 47720-0) Normal [facility] ResourcesN[facility]TERMINAL [id number] 06:03:04* Test Item Value Reference Range Interpretation Comme nts NT-proBNP (test code = 3004171536) 19 pg/mL See_Comment [Automated message] The system which generated this result transmitted reference range: <=125. The reference range was not used to interpret this result as normal/abnormal. DARWIN (test code = DARWIN) Biotin has been reported to cause a negative bias, interpret results relative to patient's use of biotin. Lab Interpretation (test code = 04551-7) Normal [facility] ResourcesCOMP. METABOLIC PANEL (54493)2021-05-28 05:54:25* Test Item Value Reference Range Interpretation Comme nts NA (test code = 1692839394) 136 mmol/L 135-145 K (test code = 4405730864) 3.2 mmol/L 3.5-5.0 L CL (test code = 9055823413) 109 mmol/L 98-108 H CO2 TOTAL (test code = 9784320258) 16 mmol/L 23-31 L AGAP (test code = 0638823265) 2-16 BUN (test code = 8127908489) 11 mg/dL 7-23 GLUCOSE (test code = 4830174831) 144 mg/dL 70-110 H CREATININE (test code = 2833091333) 0.84 mg/dL 0.50-1.04 TOTAL BILI (test code = 0723759821) 0.2 mg/dL 0.1-1.1 CALCIUM (test code = 0017303168) 9.4 mg/dL 8.6-10.6 T PROTEIN (test code = 1489043332) 6.9 g/dL 6.3-8.2 ALBUMIN (test code = 2753204198) 3.9 g/dL 3.5-5.0 ALK PHOS (test code = 6024259955) 106 U/L 34-122 ALTv (test code = 1742-6) 20 U/L 5-35 AST(SGOT) (test code = 8680665810) 17 U/L 13-40 eGFR (test code = 8873511291) mL/min/1.73m2 DARWIN (test code = DARWIN) Association of Glomerular Filtration Rate (GFR) and Staging of Kidney Disease* + --+ --+ ------+| GFR (mL/min/1.73 m2) ?| With Kidney Damage ?| ?Without Kidney Damage+ --------+ --------+ +| ?>90 ?| ?Stage one ?| ? Normal ?+ ---+ ---+ -------+| ?60-89 ?| ?Stage two ?| ? Decreased GFR ? + --+ --+ ------+| ?30-59 ?| ?Stage three ?| ? Stage three ? + --+ --+ ------+| ?15-29 ?| ?Stage four ? | ? Stage four ?+ ---+ ---+ -------+| ?<15 (or dialysis) ? ?| ?Stage five ? | ? Stage five ?+ ---+ ---+ -------+ *Each stage assumes the associated GFR level has been in effect for at least three months. ?Stages 1 to 5, with or without kidney disease, indicate chronic kidney disease. Notes: Determination of stages one and two (with eGFR >59mL/min/1.73 m2) requires estimation of kidney damage for at least three months as defined by structural or functional abnormalities of the kidney, manifested by either:Pathological abnormalities or Markers of kidney damage (including abnormalities in the composition of the blood or urine or abnormalities in imaging tests). Lab Interpretation (test code = 02958-0) Abnormal [facility] WITH [id number] 05:40:06* Test Item Value Reference Range Interpretation Comme nts WBC (test code = 6690-2) See_Comment [Automated [email or web address]] The system which generated this result transmitted reference range: 4.30 - 11.10 10*3/?L. The reference range was not used to interpret this result as normal/abnormal. RBC (test code = 789-8) See_Comment [Automated [email or web address]] The system which generated this result transmitted reference range: 3.93 - 5.25 10*6/?L. The reference range was not used to interpret this result as normal/abnormal. HGB (test code = 718-7) 13.5 g/dL 11.6-15.0 HCT (test code = 4544-3) 40.5 % 35.7-45.2 MCV (test code = 787-2) 80.8 fL 80.6-95.5 MCH (test code = 785-6) 26.9 pg 25.9-32.8 MCHC (test code = 786-4) 33.3 g/dL 31.6-35.1 RDW-SD (test code = 84352-5) 39.7 fL 39.0-49.9 RDW-CV (test code = 788-0) 13.6 % 12.0-15.5 PLT (test code = 777-3) See_Comment [Automated [email or web address]] The system which generated this result transmitted reference range: 166 - 358 10*3/?L. The reference range was not used to interpret this result as normal/abnormal. MPV (test code = 68239-4) 9.5 fL 9.5-12.9 NRBC/100 WBC (test code = 7962802253) See_Comment [Automated me ssage] The system which generated this result transmitted reference range: 0.0 - 10.0 /100 WBCs. The reference range was not used to interpret this result as normal/abnormal. NRBC x10^3 (test code = 7549579908) <0.01 See_Comment [Automated messa ge] The system which generated this result transmitted reference range: 10*3/?L. The reference range was not used to interpret this result as normal/abnormal. GRAN MAT (NEUT) % (test code = 770-8) 53.7 % IMM GRAN % (test code = 3179999005) 0.50 % LYMPH % (test code = 736-9) 36.0 % MONO % (test code = 5905-5) 6.3 % EOS % (test code = 713-8) 2.8 % BASO % (test code = 706-2) 0.7 % GRAN MAT x10^3(ANC) (test code = 2279989840) 5.38 10*3/uL 1.88-7.09 IMM GRAN x10^3 (test code = 8025924969) 0.05 10*3/uL 0.00-0.06 LYMPH x10^3 (test code = 731-0) 3.60 10*3/uL 1.32-3.29 H MONO x10^3 (test code = 742-7) 0.63 10*3/uL 0.33-0.92 EOS x10^3 (test code = 711-2) 0.28 10*3/uL 0.03-0.39 BASO x10^3 (test code = 704-7) 0.07 10*3/uL 0.01-0.07 Lab Interpretation (test code = 50066-5) Abnormal [facility]PO[facility] [id number] 05:32:00* Test Item Value Reference Range Interpretation Comme nts POCT PREG (test code = 1605) negative On board controls acceptable with C Line (test code = 3574) present POCT PREG LOT # (test code = 3575) [id number] POCT PREG TEST DATE ( test code = 3576) 08/07/2022 Lab Interpretation (test cod e = 59415-3) Normal [facility] ResourcesTroponin [id number] 11:13:57* Test Item Value Reference Range Interpretation Comments TROPONIN I (test code = 7474927021) 0.002 ng/mL See_Comment [Automated message] The system which generated this result transmitted reference range: <=0.034. The reference range was not used to interpret this result as normal/abnormal. DARWIN (test code = DARWIN) Reference (Normal) Range (defined by the 99th percentile reference limit): <= 0.034 ng/mL Note: Cardiac troponin begins to rise 3-4 hours after the onset of ischemia. Repeat in 4-6 hours if the sample was drawn within 3-4 hours of the onset of the symptom and found normal. Diagnosis of myocardial injury is made with acute changes in cTn concentrations with at least one serial sample above the 99th percentile upper reference limit (URL), taken together with the patient's clinical presentation. Biotin has been reported to cause a negative bias, interpret results relative to patient's use of biotin. Lab Interpretation (test code = 79184-6) Normal [facility] (NA, K, CL, CO2, GLUCOSE, BUN, CREATININE, CA)2021-04-08 11:04:34* Test Item Value Reference Range Interpretation Comme nts NA (test code = 4039326026) 140 mmol/L 135-145 K (test code = 4942554641) 3.6 mmol/L 3.5-5.0 CL (test code = 0896816462) 111 mmol/L 98-108 H CO2 TOTAL (test code = 0775076063) 22 mmol/L 23-31 L AGAP (test code = 3591111651) 2-16 BUN (test code = 7704896360) 10 mg/dL 7-23 GLUCOSE (test code = 4924351978) 104 mg/dL 70-110 CREATININE (test code = 9276459898) 0.70 mg/dL 0.50-1.04 CALCIUM (test code = 0694724222) 8.7 mg/dL 8.6-10.6 eGFR (test code = 7117378618) mL/min/1.73m2 DARWIN (test code = DARWIN) Association of Glomerular Filtration Rate (GFR) and Staging of Kidney Disease* + --+ --+ ------+| GFR (mL/min/1.73 m2) ?| With Kidney Damage ?| ?Without Kidney Damage+ --------+ --------+ +| ?>90 ?| ?Stage one ?| ? Normal ?+ ---+ ---+ -------+| ?60-89 ?| ?Stage two ?| ? Decreased GFR ? + --+ --+ ------+| ?30-59 ?| ?Stage three ?| ? Stage three ? + --+ --+ ------+| ?15-29 ?| ?Stage four ? | ? Stage four ?+ ---+ ---+ -------+| ?<15 (or dialysis) ? ?| ?Stage five ? | ? Stage five ?+ ---+ ---+ -------+ *Each stage assumes the associated GFR level has been in effect for at least three months. ?Stages 1 to 5, with or without kidney disease, indicate chronic kidney disease. Notes: Determination of stages one and two (with eGFR >59mL/min/1.73 m2) requires estimation of kidney damage for at least three months as defined by structural or functional abnormalities of the kidney, manifested by either:Pathological abnormalities or Markers of kidney damage (including abnormalities in the composition of the blood or urine or abnormalities in imaging tests). Lab Interpretation (test code = 31880-3) Abnormal [facility] with [id number] 10:46:50* Test Item Value Reference Range Interpretation Comme nts WBC (test code = 6690-2) See_Comment [[employer]] The system which generated this result transmitted reference range: 4.30 - 11.10 10*3/?L. The reference range was not used to interpret this result as normal/abnormal. RBC (test code = 789-8) See_Comment [Automated [email or web address]] The system which generated this result transmitted reference range: 3.93 - 5.25 10*6/?L. The reference range was not used to interpret this result as normal/abnormal. HGB (test code = 718-7) 12.0 g/dL 11.6-15.0 HCT (test code = 4544-3) 35.8 % 35.7-45.2 MCV (test code = 787-2) 81.4 fL 80.6-95.5 MCH (test code = 785-6) 27.3 pg 25.9-32.8 MCHC (test code = 786-4) 33.5 g/dL 31.6-35.1 RDW-SD (test code = 18807-4) 42.0 fL 39.0-49.9 RDW-CV (test code = 788-0) 14.1 % 12.0-15.5 PLT (test code = 777-3) See_Comment [Automated messa ge] The system which generated this result transmitted reference range: 166 - 358 10*3/?L. The reference range was not used to interpret this result as normal/abnormal. MPV (test code = 90435-9) 10.0 fL 9.5-12.9 NRBC/100 WBC (test code = 0433035074) See_Comment [Automated me ssage] The system which generated this result transmitted reference range: 0.0 - 10.0 /100 WBCs. The reference range was not used to interpret this result as normal/abnormal. NRBC x10^3 (test code = 6730966214) <0.01 See_Comment [Automated me ssage] The system which generated this result transmitted reference range: 10*3/?L. The reference range was not used to interpret this result as normal/abnormal. GRAN MAT (NEUT) % (test code = 770-8) 59.1 % IMM GRAN % (test code = 5835447528) 0.70 % LYMPH % (test code = 736-9) 28.2 % MONO % (test code = 5905-5) 8.5 % EOS % (test code = 713-8) 3.0 % BASO % (test code = 706-2) 0.5 % GRAN MAT x10^3(ANC) (test code = 8942813046) 3.61 10*3/uL 1.88-7.09 IMM GRAN x10^3 (test code = 3344972953) 0.04 10*3/uL 0.00-0.06 LYMPH x10^3 (test code = 731-0) 1.72 10*3/uL 1.32-3.29 MONO x10^3 (test code = 742-7) 0.52 10*3/uL 0.33-0.92 EOS x10^3 (test code = 711-2) 0.18 10*3/uL 0.03-0.39 BASO x10^3 (test code = 704-7) 0.03 10*3/uL 0.01-0.07 [facility] ResourcesTroponin [id number] 05:54:48* Test Item Value Reference Range Interpretation Comments TROPONIN I (test code = 0296098647) 0.002 ng/mL See_Comment [Automated message] The system which generated this result transmitted reference range: <=0.034. The reference range was not used to interpret this result as normal/abnormal. DARWIN (test code = DARWIN) Reference (Normal) Range (defined by the 99th percentile reference limit): <= 0.034 ng/mL Note: Cardiac troponin begins to rise 3-4 hours after the onset of ischemia. Repeat in 4-6 hours if the sample was drawn within 3-4 hours of the onset of the symptom and found normal. Diagnosis of myocardial injury is made with acute changes in cTn concentrations with at least one serial sample above the 99th percentile upper reference limit (URL), taken together with the patient's clinical presentation. Biotin has been reported to cause a negative bias, interpret results relative to patient's use of biotin. Lab Interpretation (test code = 45538-2) Normal [facility] ResourcesThyroid Stimulating Hormone (TSH)2021-04-08 00:51:16* Test Item Value Reference Range Interpretation Comme nts TSH (test code = 9885258348) See_Comment [Automated [employer] [place] [employer]] The system which generated this result transmitted reference range: 0.45 - 4.70 mIU/L. The reference range was not used to interpret this result as normal/abnormal. Lab Interpretation (test code = 70286-2) Normal [facility] ResourcesGlycosylated Hemoglobin (A1C)2021-04-08 00:26:53* Test Item Value Reference Range Interpretation Comme nts HGB A1C (test code = 4548-4) 5.5 % 4.0-5.7 DARWIN (test code = DARWIN) Reference RangesNormal: <5.7%Prediabetes: 5.7 - 6.4%Diabetes: > 6.5% Lab Interpretation (test code = 83719-7) Normal [facility] ResourcesLipid Panel (Total Cholesterol, Triglycerides, HDL)2021-04-08 00:20:12* Test Item Value Reference Range Interpretation Comme nts CHOL (test code = 4505001557) 223 mg/dL 120-200 H HDL (test code = 4276966899) 35 mg/dL >50 L HDLC RATIO (test code = 5449125029) See_Comment H [Automated [email or web address]] The system which generated this result transmitted reference range: <=4.5. The reference range was not used to interpret this result as normal/abnormal. TRIG (test code = 8969174361) 223 mg/dL 30-170 H LDL CHOL (test code = 38802-6) 143 mg/dL See_Comment [Automated [email or web address]] The system which generated this result transmitted reference range: <=160. The reference range was not used to interpret this result as normal/abnormal. VLDL (test code = 5415263071) 45 mg/dL 5-60 Lab Interpretation (test code = 87311-5) Abnormal [facility] ResourcesMagnesium Ksjgq9103-40-82 00:20:07* Test Item Value Reference Range Interpretation Comme nts MAGNESIUM (test code = 6500907717) 1.7 mg/dL 1.7-2.4 Lab Interpretation (test cod e = 56796-6) Normal [facility] ResourcesCOMP. METABOLIC PANEL (94285)2021-04-07 23:04:13* Test Item Value Reference Range Interpretation Comme nts NA (test code = 4847094677) 139 mmol/L 135-145 K (test code = 8681079606) 3.4 mmol/L 3.5-5.0 L CL (test code = 5531193639) 109 mmol/L 98-108 H CO2 TOTAL (test code = 7678540945) 22 mmol/L 23-31 L AGAP (test code = 4669152412) 2-16 BUN (test code = 6939438380) 10 mg/dL 7-23 GLUCOSE (test code = 4325429751) 97 mg/dL 70-110 CREATININE (test code = 6302372183) 0.84 mg/dL 0.50-1.04 TOTAL BILI (test code = 2435311522) 0.3 mg/dL 0.1-1.1 CALCIUM (test code = 4269442870) 9.2 mg/dL 8.6-10.6 T PROTEIN (test code = 6489213915) 6.6 g/dL 6.3-8.2 ALBUMIN (test code = 6905005561) 3.8 g/dL 3.5-5.0 ALK PHOS (test code = 2981294807) 69 U/L 34-122 ALTv (test code = 1742-6) 18 U/L 5-35 AST(SGOT) (test code = 3659221114) 19 U/L 13-40 eGFR (test code = 0285986597) mL/min/1.73m2 DARWIN (test code = DARWIN) Association of Glomerular Filtration Rate (GFR) and Staging of Kidney Disease* + --+ --+ ------+| GFR (mL/min/1.73 m2) ?| With Kidney Damage ?| ?Without Kidney Damage+ --------+ --------+ +| ?>90 ?| ?Stage one ?| ? Normal ?+ ---+ ---+ -------+| ?60-89 ?| ?Stage two ?| ? Decreased GFR ? + --+ --+ ------+| ?30-59 ?| ?Stage three ?| ? Stage three ? + --+ --+ ------+| ?15-29 ?| ?Stage four ? | ? Stage four ?+ ---+ ---+ -------+| ?<15 (or dialysis) ? ?| ?Stage five ? | ? Stage five ?+ ---+ ---+ -------+ *Each stage assumes the associated GFR level has been in effect for at least three months. ?Stages 1 to 5, with or without kidney disease, indicate chronic kidney disease. Notes: Determination of stages one and two (with eGFR >59mL/min/1.73 m2) requires estimation of kidney damage for at least three months as defined by structural or functional abnormalities of the kidney, manifested by either:Pathological abnormalities or Markers of kidney damage (including abnormalities in the composition of the blood or urine or abnormalities in imaging tests). Lab Interpretation (test code = 40232-9) Abnormal [facility] ResourcesJOAN [id number] 22:33:04* Test Item Value Reference Range Interpretation Comments TROPONIN I (test code = 0991388726) 0.001 ng/mL See_Comment [Automated message] The system which generated this result transmitted reference range: <=0.034. The reference range was not used to interpret this result as normal/abnormal. DARWIN (test code = DARWIN) Reference (Normal) Range (defined by the 99th percentile reference limit): <= 0.034 ng/mL Note: Cardiac troponin begins to rise 3-4 hours after the onset of ischemia. Repeat in 4-6 hours if the sample was drawn within 3-4 hours of the onset of the symptom and found normal. Diagnosis of myocardial injury is made with acute changes in cTn concentrations with at least one serial sample above the 99th percentile upper reference limit (URL), taken together with the patient's clinical presentation. Biotin has been reported to cause a negative bias, interpret results relative to patient's use of biotin. Lab Interpretation (test code = 96414-0) Normal [facility] ResourcesN-TERMINAL [id number] 22:30:05* Test Item Value Reference Range Interpretation Comme [facility] NT-proBNP (test code = 0459936160) 352 pg/mL See_Comment H [Automated message] The system which generated this result transmitted reference range: <=125. The reference range was not used to interpret this result as normal/abnormal. DARWIN (test code = DARWIN) Biotin has been reported to cause a negative bias, interpret results relative to patient's use of biotin. Lab Interpretation (test code = 92085-4) Abnormal [facility] ResourcesACTIVATED PARTIAL THRMPLAS [id number] 22:28:48* Test Item Value Reference Range Interpretation Comme [facility] APTT Patient (test code = 3173-2) See_Comment [Automated message] The system which generated this result transmitted reference range: 23 - 38 Seconds. The reference range was not used to interpret this result as normal/abnormal. DARWIN (test code = DARWIN) The [facility] patient population mean normal value for aPTT is 30 seconds. Lab Interpretation (test code = 33693-2) Normal [facility] ResourcesPROTHROMBIN TIME / [id number] 22:26:44* Test Item Value Reference Range Interpretation Comme [facility] PROTIME PATIENT (test code = 5964-2) See_Comment [Automated messa ge] The system which generated this result transmitted reference range: 12.0 - 14.7 Seconds. The reference range was not used to interpret this result as normal/abnormal. INR (test code = 6301-6) Normal INR <1.1; Warfarin Therapeutic range 2.0 to 3.0 or 2.5 to 3.5, depending upon the indications. Lab Interpretation (test code = 24841-7) Normal [facility] ResourcesLIPASE2021-10-01 22:20:05* Test Item Value Reference Range Interpretation Comme nts LIPASE (test code = 5872311304) 66 U/L 0-220 Lab Interpretation (test cod e = 27493-1) Normal [facility] ResourcesCB WITH [id number] 22:07:01* Test Item Value Reference Range Interpretation Comme nts WBC (test code = 6690-2) See_Comment [Automated [place] [employer]] The system which generated this result transmitted reference range: 4.30 - 11.10 10*3/?L. The reference range was not used to interpret this result as normal/abnormal. RBC (test code = 789-8) See_Comment [Automated [place] [employer]] The system which generated this result transmitted reference range: 3.93 - 5.25 10*6/?L. The reference range was not used to interpret this result as normal/abnormal. HGB (test code = 718-7) 13.0 g/dL 11.6-15.0 HCT (test code = 4544-3) 39.2 % 35.7-45.2 MCV (test code = 787-2) 81.3 fL 80.6-95.5 MCH (test code = 785-6) 27.0 pg 25.9-32.8 MCHC (test code = 786-4) 33.2 g/dL 31.6-35.1 RDW-SD (test code = 23199-2) 41.6 fL 39.0-49.9 RDW-CV (test code = 788-0) 14.1 % 12.0-15.5 PLT (test code = 777-3) See_Comment [Automated [place] [employer]] The system which generated this result transmitted reference range: 166 - 358 10*3/?L. The reference range was not used to interpret this result as normal/abnormal. MPV (test code = 10773-1) 9.2 fL 9.5-12.9 L NRBC/100 WBC (test code = 0997974020) See_Comment [Automated me ssage] The system which generated this result transmitted reference range: 0.0 - 10.0 /100 WBCs. The reference range was not used to interpret this result as normal/abnormal. NRBC x10^3 (test code = 8220688703) <0.01 See_Comment [Automated messa ge] The system which generated this result transmitted reference range: 10*3/?L. The reference range was not used to interpret this result as normal/abnormal. GRAN MAT (NEUT) % (test code = 770-8) 61.6 % IMM GRAN % (test code = 0027731694) 0.60 % LYMPH % (test code = 736-9) 28.7 % MONO % (test code = 5905-5) 4.9 % EOS % (test code = 713-8) 3.7 % BASO % (test code = 706-2) 0.5 % GRAN MAT x10^3(ANC) (test code = 2155334569) 6.24 10*3/uL 1.88-7.09 IMM GRAN x10^3 (test code = 5978344567) 0.06 10*3/uL 0.00-0.06 LYMPH x10^3 (test code = 731-0) 2.90 10*3/uL 1.32-3.29 MONO x10^3 (test code = 742-7) 0.50 10*3/uL 0.33-0.92 EOS x10^3 (test code = 711-2) 0.37 10*3/uL 0.03-0.39 BASO x10^3 (test code = 704-7) 0.05 10*3/uL 0.01-0.07 Lab Interpretation (test code = 13569-7) Abnormal [facility] ResourcesURINALYSIS2021-07-08 08:49:55* Test Item Value Reference Range Interpretation Comme nts APPEARANCE (test code = 6945370370) Cloudy Clear A COLOR (test code = 1566787078) Yellow Yellow PH (test code = 1948138473) 4.8-8.0 SP GRAVITY (test code = 9174362527) 1.003-1.030 GLU U QUAL (test code = 5501474580) Normal Normal BLOOD (test code = 5142425029) Negative Negative KETONES (test code = 4714506062) Negative Negative PROTEIN (test code = 2887-8) Negative Negative UROBILIN (test code = 6388242621) Normal Normal BILIRUBIN (test code = 1627343443) 2 mg/dL Negative A NITRITE (test code = 6640623085) Negative Negative LEUK MARC (test code = 9585595778) 75/uL Negative A RBC/HPF (test code = 5998365281) See_Comment H [Automated messa ge] The system which generated this result transmitted reference range: 0 - 3 HPF. The reference range was not used to interpret this result as normal/abnormal. WBC/HPF (test code = 3646074702) See_Comment H [Automated messa ge] The system which generated this result transmitted reference range: 0 - 5 HPF. The reference range was not used to interpret this result as normal/abnormal. BACTERIA (test code = 7948225888) Moderate Negative A MUCOUS (test code = 9047470911) Slight Negative LPF A SQ EPITH (test code = 5348113764) HPF YEAST BUD (test code = 1595060024) See_Comment H [Automated messa ge] The system which generated this result transmitted reference range: <=1 HPF. The reference range was not used to interpret this result as normal/abnormal. Ictotest (test code = 3816269739) Negative Lab Interpretation (test code = 01117-5) Abnormal [facility]. METABOLIC PANEL (95126)2021-01-12 08:49:44* Test Item Value Reference Range Interpretation Comme nts NA (test code = 4814302678) 137 mmol/L 135-145 K (test code = 0219514264) 4.6 mmol/L 3.5-5.0 CL (test code = 0903340369) 108 mmol/L 98-108 CO2 TOTAL (test code = 0736722793) 21 mmol/L 23-31 L AGAP (test code = 0908825959) 2-16 BUN (test code = 5672172495) 19 mg/dL 7-23 GLUCOSE (test code = 0683468458) 107 mg/dL 70-110 CREATININE (test code = 7675069027) 0.63 mg/dL 0.50-1.04 TOTAL BILI (test code = 4400207801) 0.4 mg/dL 0.1-1.1 CALCIUM (test code = 1979989028) 9.2 mg/dL 8.6-10.6 T PROTEIN (test code = 5960464973) 7.4 g/dL 6.3-8.2 ALBUMIN (test code = 1628666748) 4.2 g/dL 3.5-5.0 ALK PHOS (test code = 6534407805) 179 U/L 34-122 H ALTv (test code = 1742-6) 113 U/L 5-35 H AST(SGOT) (test code = 0404032390) 38 U/L 13-40 eGFR (test code = 7067113069) mL/min/1.73m2 DARWIN (test code = DARWIN) Association of Glomerular Filtration Rate (GFR) and Staging of Kidney Disease* + --+ --+ ------+| GFR (mL/min/1.73 m2) ?| With Kidney Damage ?| ?Without Kidney Damage+ --------+ --------+ +| ?>90 ?| ?Stage one ?| ? Normal ?+ ---+ ---+ -------+| ?60-89 ?| ?Stage two ?| ? Decreased GFR ? + --+ --+ ------+| ?30-59 ?| ?Stage three ?| ? Stage three ? + --+ --+ ------+| ?15-29 ?| ?Stage four ? | ? Stage four ?+ ---+ ---+ -------+| ?<15 (or dialysis) ? ?| ?Stage five ? | ? Stage five ?+ ---+ ---+ -------+ *Each stage assumes the associated GFR level has been in effect for at least three months. ?Stages 1 to 5, with or without kidney disease, indicate chronic kidney disease. Notes: Determination of stages one and two (with eGFR >59mL/min/1.73 m2) requires estimation of kidney damage for at least three months as defined by structural or functional abnormalities of the kidney, manifested by either:Pathological abnormalities or Markers of kidney damage (including abnormalities in the composition of the blood or urine or abnormalities in imaging tests). Lab Interpretation (test code = 69461-7) Abnormal [facility] WITH [id number] 08:11:02* Test Item Value Reference Range Interpretation Comme nts WBC (test code = 6690-2) See_Comment H [Automated messa ge] The system which generated this result transmitted reference range: 4.30 - 11.10 10*3/?L. The reference range was not used to interpret this result as normal/abnormal. RBC (test code = 789-8) See_Comment [Automated messa ge] The system which generated this result transmitted reference range: 3.93 - 5.25 10*6/?L. The reference range was not used to interpret this result as normal/abnormal. HGB (test code = 718-7) 13.7 g/dL 11.6-15.0 HCT (test code = 4544-3) 41.2 % 35.7-45.2 MCV (test code = 787-2) 82.9 fL 80.6-95.5 MCH (test code = 785-6) 27.6 pg 25.9-32.8 MCHC (test code = 786-4) 33.3 g/dL 31.6-35.1 RDW-SD (test code = 16975-7) 41.6 fL 39.0-49.9 RDW-CV (test code = 788-0) 14.0 % 12.0-15.5 PLT (test code = 777-3) See_Comment [Automated [place] [employer]] The system which generated this result transmitted reference range: 166 - 358 10*3/?L. The reference range was not used to interpret this result as normal/abnormal. MPV (test code = 09940-9) 9.5 fL 9.5-12.9 NRBC/100 WBC (test code = 7093726016) See_Comment [Automated [employer] ssage] The system which generated this result transmitted reference range: 0.0 - 10.0 /100 WBCs. The reference range was not used to interpret this result as normal/abnormal. NRBC x10^3 (test code = 3559318029) <0.01 See_Comment [Automated [place] [employer]] The system which generated this result transmitted reference range: 10*3/?L. The reference range was not used to interpret this result as normal/abnormal. GRAN MAT (NEUT) % (test code = 770-8) 68.0 % IMM GRAN % (test code = 5071827048) 0.80 % LYMPH % (test code = 736-9) 23.6 % MONO % (test code = 5905-5) 5.1 % EOS % (test code = 713-8) 2.1 % BASO % (test code = 706-2) 0.4 % GRAN MAT x10^3(ANC) (test code = 7044847464) 8.86 10*3/uL 1.88-7.09 H IMM GRAN x10^3 (test code = 5642700535) 0.11 10*3/uL 0.00-0.06 H LYMPH x10^3 (test code = 731-0) 3.07 10*3/uL 1.32-3.29 MONO x10^3 (test code = 742-7) 0.66 10*3/uL 0.33-0.92 EOS x10^3 (test code = 711-2) 0.27 10*3/uL 0.03-0.39 BASO x10^3 (test code = 704-7) 0.05 10*3/uL 0.01-0.07 Lab Interpretation (test code = 36508-9) [facility]normal [facility] [id number] 08:02:00* Test Item Value Reference Range Interpretation Comme nts POCT PREG (test code = 1605) negative On board controls acceptable with C Line (test code = 3574) positive POCT PREG LOT # (test code = 3575) [id number] POCT PREG TEST DATE ( test code = 3576) 07/07/2022 Lab Interpretation (test cod e = 46853-0) Normal [facility] ResourcesTR[facility]IN [id number] 01:55:05* Test Item Value Reference Range Interpretation Comme nts TROPONIN I (test code = 9721191528) 0.000 ng/mL See_Comment [Automated message] The system which generated this result transmitted reference range: <=0.034. The reference range was not used to interpret this result as normal/abnormal. DARWIN (test code = DARWIN) Equal or Less than 0.034 ng/ml---Normal ?Note: Cardiac troponin begins to rise 3-4 hours after the onset of ischemia. Repeat in 4-6 hours if the sample was drawn within 3-4 hours of the onset of the symptom and found normal. Between 0.035 and 0.120 ng/mL--- Borderline. Questionable myocardial injury or necrosis ? ?Note: Serial measurement may be necessary to confirm or exclude the diagnosis of myocardial injury or necrosis; Clinical correlation (symptoms, EKGs, imaging studies, and others) required; Repeat in 4-6 hours if clinically indicated. ? Equal or Higher than 0.121 ng/mL---Abnormal. Myocardial Injury or Necrosis Likely ? Biotin has been reported to cause a negative bias, interpret results relative to patient's use of biotin. ? Lab Interpretation (test code = 08088-9) Normal [facility] 1 [id number] 23:41:46No radiographic evidence of an acute cardiopulmonary process. RL: 2109AFC: [id number] EXAM: XR CHEST 1 VW ORDERING PROVIDER: BAL HASSAN HISTORY: CP COMPARISON: 12/04/2020 TECHNIQUE: Portable AP radiograph of the chest. FINDINGS: Overlying monitoring leads. There is no focal consolidation,pneumothorax or appreciable pleural effusion. The card iomediastinalsilhouette is within normal limits. Trachea is midline. No acute osseousabnormality identified. [facility], Radiant Results Inft User - 12/10/2020 6:42 PM CDT EXAM: XR CHEST 1 VWORDERING PROVIDER: BAL JEFFREYORY: JR COMPARISON: 12/04/2020 TECHNIQUE: Portable AP radiograph of the chest.FINDINGS: Overlying monitoring leads. There is no focal consolidation,pneumothorax or appreciable pleural effusion. The cardiomediastinalsilhouette is within normal limits. Trachea is midline. No acute osseousabnormality identified.IMPRESSIONNo radiographic evidence of an acute cardiopulmonary process.RL: 2109AFC: 14991 [facility] Troponin [id number] 23:07:21* Test Item Value Reference Range Interpretation Comme nts TROPONIN I (test code = 9121547674) 0.000 ng/mL See_Comment [Automated message] The system which generated this result transmitted reference range: <=0.034. The reference range was not used to interpret this result as normal/abnormal. DARWIN (test code = DARWIN) Equal or Less than 0.034 ng/ml---Normal ?Note: Cardiac troponin begins to rise 3-4 hours after the onset of ischemia. Repeat in 4-6 hours if the sample was drawn within 3-4 hours of the onset of the symptom and found normal. Between 0.035 and 0.120 ng/mL--- Borderline. Questionable myocardial injury or necrosis ? ?Note: Serial measurement may be necessary to confirm or exclude the diagnosis of myocardial injury or necrosis; Clinical correlation (symptoms, EKGs, imaging studies, and others) required; Repeat in 4-6 hours if clinically indicated. ? Equal or Higher than 0.121 ng/mL---Abnormal. Myocardial Injury or Necrosis Likely ? Biotin has been reported to cause a negative bias, interpret results relative to patient's use of biotin. ? Lab Interpretation (test code = 92636-3) Normal [facility] ResourcesN-TERMINAL [id number]-[id number] 23:04:20* Test Item Value Reference Range Interpretation Comme nts NT-proBNP (test code = 8863977796) 14 pg/mL See_Comment [Automated message] The system which generated this result transmitted reference range: <=125. The reference range was not used to interpret this result as normal/abnormal. DARWIN (test code = DARWIN) Biotin has been reported to cause a negative bias, interpret results relative to patient's use of biotin. Lab Interpretation (test code = 01725-8) Normal [facility] Function Panel (ALB, T.PRO, BILI T, BU/BC, ALT, AST, ALK PHOS)2020-12-10 22:58:16* Test Item Value Reference Range Interpretation Comme nts TOTAL BILI (test code = 5323853865) 0.5 mg/dL 0.1-1.1 BILI UNCON (test code = 2630143052) 0.3 mg/dL 0.1-1.1 BILI CONJ (test code = 5597775119) 0.0 mg/dL 0.0-0.3 T PROTEIN (test code = 9547441357) 8.1 g/dL 6.3-8.2 ALBUMIN (test code = 6477153842) 4.7 g/dL 3.5-5.0 ALK PHOS (test code = 4484846650) 104 U/L 34-122 ALTv (test code = 1742-6) 18 U/L 5-35 AST(SGOT) (test code = 6971963744) 23 U/L 13-40 Lab Interpretation (test cod e = 73829-2) Normal [facility] ResourcesBasi Metabolic Panel (NA, K, CL, CO2, GLUCOSE, BUN, CREATININE, CA)2020-12-10 22:57:56* Test Item Value Reference Range Interpretation Comme nts NA (test code = 7535623665) 135 mmol/L 135-145 K (test code = 8461240724) 3.7 mmol/L 3.5-5.0 CL (test code = 0205743257) 105 mmol/L 98-108 CO2 TOTAL (test code = 9893082399) 18 mmol/L 23-31 L AGAP (test code = 1734746383) 2-16 BUN (test code = 2787620343) 14 mg/dL 7-23 GLUCOSE (test code = 5287618187) 108 mg/dL 70-110 CREATININE (test code = 4746869174) 0.56 mg/dL 0.50-1.04 CALCIUM (test code = 9537580447) 9.8 mg/dL 8.6-10.6 eGFR (test code = 2384575218) mL/min/1.73m2 DARWIN (test code = DARWIN) Association of Glomerular Filtration Rate (GFR) and Staging of Kidney Disease* + --+ --+ ------+| GFR (mL/min/1.73 m2) ?| With Kidney Damage ?| ?Without Kidney Damage+ --------+ --------+ +| ?>90 ?| ?Stage one ?| ? Normal ?+ ---+ ---+ -------+| ?60-89 ?| ?Stage two ?| ? Decreased GFR ? + --+ --+ ------+| ?30-59 ?| ?Stage three ?| ? Stage three ? + --+ --+ ------+| ?15-29 ?| ?Stage four ? | ? Stage four ?+ ---+ ---+ -------+| ?<15 (or dialysis) ? ?| ?Stage five ? | ? Stage five ?+ ---+ ---+ -------+ *Each stage assumes the associated GFR level has been in effect for at least three months. ?Stages 1 to 5, with or without kidney disease, indicate chronic kidney disease. Notes: Determination of stages one and two (with eGFR >59mL/min/1.73 m2) requires estimation of kidney damage for at least three months as defined by structural or functional abnormalities of the kidney, manifested by either:Pathological abnormalities or Markers of kidney damage (including abnormalities in the composition of the blood or urine or abnormalities in imaging tests). Lab Interpretation (test code = 86604-9) Abnormal [facility] ResourcesLipase [id number] 22:57:56* Test Item Value Reference Range Interpretation Comme nts LIPASE (test code = 8813031911) 122 U/L 0-220 Lab Interpretation (test cod e = 39872-7) Normal [facility] ResourcesD-[id number] 22:52:34* Test Item Value Reference Range Interpretation Comments D-DIMER (test code = 6323261223) See_Comment [Automated message] The system which generated this result transmitted reference range: <0.41 ?g/mL (FEU). The reference range was not used to interpret this result as normal/abnormal. DARWIN (test code = DARWIN) This test may be used in conjunction with a clinical pretest probability (PTP) assessment model to exclude venous thromboembolism (VTE) in patients suspected of deep venous thrombosis (DVT) and pulmonary embolism (PE) A D-Dimer value less than 0.50 ?g/ml (FEU) has a negative predicative value of 96 to 100% (95% CI)and 97 to 100% (95% CI) as an aid in the diagnosis of deep vein thrombosis (DVT) and pulmonary embolism when there is low or moderate pretest probability of PE or DVT. D-Dimer values are expressed in initial fibrinogen equivalent units (FEU)" The assay results should be used with other information, including the clinical context, in forming a diagnosis. Lab Interpretation (test code = 67397-8) Normal [facility] ResourcesUrinalysis2021-06-05 22:52:29* Test Item Value Reference Range Interpretation Comme nts APPEARANCE (test code = 1915788370) Hazy Clear A COLOR (test code = 9603043226) Yellow Yellow PH (test code = 8920033487) 4.8-8.0 SP GRAVITY (test code = 3053133559) 1.003-1.030 GLU U QUAL (test code = 8057103219) Normal Normal BLOOD (test code = 0895526359) Negative Negative KETONES (test code = 0286850214) Negative Negative PROTEIN (test code = 2887-8) Negative Negative UROBILIN (test code = 4001571507) Normal Normal BILIRUBIN (test code = 2963083908) 2 mg/dL Negative A NITRITE (test code = 9884667311) Negative Negative LEUK MARC (test code = 2197144952) 25/uL Negative A RBC/HPF (test code = 8593819075) See_Comment [Automated [place] [employer]] The system which generated this result transmitted reference range: 0 - 3 HPF. The reference range was not used to interpret this result as normal/abnormal. WBC/HPF (test code = 7171600155) See_Comment [Automated [place] [employer]] The system which generated this result transmitted reference range: 0 - 5 HPF. The reference range was not used to interpret this result as normal/abnormal. BACTERIA (test code = 3512844124) Few Negative A MUCOUS (test code = 5736277020) Slight Negative LPF A SQ EPITH (test code = 0354576762) HPF Lab Interpretation (test code = 91499-5) Abnormal [facility] ResourcesCB with Divouwnrkabd5510-37-55 22:45:56* Test Item Value Reference Range Interpretation Comme nts WBC (test code = 6690-2) See_Comment H [Automated message] The system which generated this result transmitted reference range: 4.30 - 11.10 10*3/?L. The reference range was not used to interpret this result as normal/abnormal. RBC (test code = 789-8) See_Comment H [Automated message] The system which generated this result transmitted reference range: 3.93 - 5.25 10*6/?L. The reference range was not used to interpret this result as normal/abnormal. HGB (test code = 718-7) 15.1 g/dL 11.6-15.0 H HCT (test code = 4544-3) 45.1 % 35.7-45.2 MCV (test code = 787-2) 83.2 fL 80.6-95.5 MCH (test code = 785-6) 27.9 pg 25.9-32.8 MCHC (test code = 786-4) 33.5 g/dL 31.6-35.1 RDW-SD (test code = 40699-9) 40.5 fL 39.0-49.9 RDW-CV (test code = 788-0) 13.3 % 12.0-15.5 PLT (test code = 777-3) See_Comment H [Automated message] The system which generated this result transmitted reference range: 166 - 358 10*3/?L. The reference range was not used to interpret this result as normal/abnormal. MPV (test code = 55219-1) 9.2 fL 9.5-12.9 L NRBC/100 WBC (test code = 9482740201) See_Comment [Automated message] The system which generated this result transmitted reference range: 0.0 - 10.0 /100 WBCs. The reference range was not used to interpret this result as normal/abnormal. NRBC x10^3 (test code = 7550453179) <0.01 See_Comment [Automated message] The system which generated this result transmitted reference range: 10*3/?L. The reference range was not used to interpret this result as normal/abnormal. GRAN MAT (NEUT) % (test code = 770-8) 73.4 % IMM GRAN % (test code = 1939564150) 0.50 % LYMPH % (test code = 736-9) 17.5 % MONO % (test code = 5905-5) 6.5 % EOS % (test code = 713-8) 1.6 % BASO % (test code = 706-2) 0.5 % GRAN MAT x10^3(ANC) (test code = 3668478174) 10.21 10*3/uL 1.88-7.09 H IMM GRAN x10^3 (test code = 5292151228) 0.07 10*3/uL 0.00-0.06 H LYMPH x10^3 (test code = 731-0) 2.44 10*3/uL 1.32-3.29 MONO x10^3 (test code = 742-7) 0.90 10*3/uL 0.33-0.92 EOS x10^3 (test code = 711-2) 0.22 10*3/uL 0.03-0.39 BASO x10^3 (test code = 704-7) 0.07 10*3/uL 0.01-0.07 Lab Interpretation (test code = 06709-9) Abnormal [facility]PO[facility] [id number] 22:32:00* Test Item Value Reference Range Interpretation Comme nts POCT PREG (test code = 1605) negative On board controls acceptable with C Line (test code = 3574) present POCT PREG LOT # (test code = 3575) [id number] POCT PREG TEST DATE ( test code = 3576) 06/06/2022 Lab Interpretation (test cod e = 14836-8) Normal [facility] ResourcesUrinalysis2021-05-30 21:34:43* Test Item Value Reference Range Interpretation Comme nts APPEARANCE (test code = 2152460178) Clear Clear COLOR (test code = 6563583086) Yellow Yellow PH (test code = 8150890873) 4.8-8.0 SP GRAVITY (test code = 0019706078) 1.003-1.030 GLU U QUAL (test code = 1532252612) Normal Normal BLOOD (test code = 1630650431) Negative Negative KETONES (test code = 9075649691) Negative Negative PROTEIN (test code = 2887-8) Negative Negative UROBILIN (test code = 4345682978) Normal Normal BILIRUBIN (test code = 6652594156) Negative Negative NITRITE (test code = 5430141300) Negative Negative LEUK MARC (test code = 3109677370) Negative Negative RBC/HPF (test code = 9813542187) See_Comment [Automated messa ge] The system which generated this result transmitted reference range: 0 - 3 HPF. The reference range was not used to interpret this result as normal/abnormal. WBC/HPF (test code = 1475369089) <1 See_Comment [Automated messa ge] The system which generated this result transmitted reference range: 0 - 5 HPF. The reference range was not used to interpret this result as normal/abnormal. BACTERIA (test code = 0020158279) Negative Negative MUCOUS (test code = 9095165016) Slight Negative LPF A SQ EPITH (test code = 2145565370) HPF Lab Interpretation (test code = 68725-9) Abnormal [facility]PO[facility] Pxkz0199-99-24 21:18:00* Test Item Value Reference Range Interpretation Comme nts POCT PREG (test code = 1605) negative On board controls acceptable with C Line (test code = 3574) present POCT PREG LOT # (test code = 3575) [id number] POCT PREG TEST DATE ( test code = 3576) 06/06/2022 Lab Interpretation (test cod e = 53478-8) Normal [facility] ResourcesXR ANKLE 3+ VW [id number] 21:11:00No acute bony abnormality. Preliminary Report Dictated by Resident: Sixto Alba I, Regulo Rivera MD., have reviewed this study and agree with the abovereport.EXAM: XR ANKLE 3+ VW LEFT HISTORY: 40 years-old Female with fall, lateral pain COMPARISON: None. FINDINGS: Radiographs of the left ankle demonstrate no acute fractures ordislocations. Posterior and plantar calcaneal enthesophytes are noted.Joint spaces are preserved. Alignment is within normal limits. The softtissues are unremarkable. [facility], Radiant Results Inft User - 12/04/2020 4:12 PM CDTFormatting of this note might be different fromthe original.EXAM: XR ANKLE 3+ VW LEFTHISTORY: 40 years-old Female with fall, lateral pain COMPARISON: None.FINDINGS: Radiographs of the left ankle demonstrate no acute fractures ordislocations. Posterior and plantar calcaneal enthesophytes are noted.Joint spaces are preserved. Alignment is within normal limits. The softtissues are unremarkable.IMPRESSIONNo acute bony abnormality.Preliminary Report Dictated by Resident: Sixto Bryan, Regulo Rivera MD., have reviewed this study and agree with the abovereport.[facility] ResourcesTroponin [id number] 20:59:44* Test Item Value Reference Range Interpretation Comme nts TROPONIN I (test code = 6907555077) 0.000 ng/mL See_Comment [Automated message] The system which generated this result transmitted reference range: <=0.034. The reference range was not used to interpret this result as normal/abnormal. DARWIN (test code = DARWIN) Equal or Less than 0.034 ng/ml---Normal ?Note: Cardiac troponin begins to rise 3-4 hours after the onset of ischemia. Repeat in 4-6 hours if the sample was drawn within 3-4 hours of the onset of the symptom and found normal. Between 0.035 and 0.120 ng/mL--- Borderline. Questionable myocardial injury or necrosis ? ?Note: Serial measurement may be necessary to confirm or exclude the diagnosis of myocardial injury or necrosis; Clinical correlation (symptoms, EKGs, imaging studies, and others) required; Repeat in 4-6 hours if clinically indicated. ? Equal or Higher than 0.121 ng/mL---Abnormal. Myocardial Injury or Necrosis Likely ? Biotin has been reported to cause a negative bias, interpret results relative to patient's use of biotin. ? Lab Interpretation (test code = 67447-3) Normal [facility] ResourcesLipase Lupqz5773-61-80 20:48:20* Test Item Value Reference Range Interpretation Comme nts LIPASE (test code = 6695877800) 96 U/L 0-220 Lab Interpretation (test cod e = 39999-2) Normal [facility] ResourcesBasi Metabolic Panel (NA, K, CL, CO2, GLUCOSE, BUN, CREATININE, CA)2020-12-04 20:48:20* Test Item Value Reference Range Interpretation Comme nts NA (test code = 3662062753) 138 mmol/L 135-145 K (test code = 4000343700) 3.8 mmol/L 3.5-5.0 CL (test code = 2609066574) 108 mmol/L 98-108 CO2 TOTAL (test code = 2105471225) 21 mmol/L 23-31 L AGAP (test code = 0321501192) 2-16 BUN (test code = 1407163764) 13 mg/dL 7-23 GLUCOSE (test code = 8790785223) 107 mg/dL 70-110 CREATININE (test code = 1322128559) 0.66 mg/dL 0.50-1.04 CALCIUM (test code = 3437873429) 9.3 mg/dL 8.6-10.6 eGFR (test code = 4524337535) mL/min/1.73m2 DARWIN (test code = DARWIN) Association of Glomerular Filtration Rate (GFR) and Staging of Kidney Disease* + --+ --+ ------+| GFR (mL/min/1.73 m2) ?| With Kidney Damage ?| ?Without Kidney Damage+ --------+ --------+ +| ?>90 ?| ?Stage one ?| ? Normal ?+ ---+ ---+ -------+| ?60-89 ?| ?Stage two ?| ? Decreased GFR ? + --+ --+ ------+| ?30-59 ?| ?Stage three ?| ? Stage three ? + --+ --+ ------+| ?15-29 ?| ?Stage four ? | ? Stage four ?+ ---+ ---+ -------+| ?<15 (or dialysis) ? ?| ?Stage five ? | ? Stage five ?+ ---+ ---+ -------+ *Each stage assumes the associated GFR level has been in effect for at least three months. ?Stages 1 to 5, with or without kidney disease, indicate chronic kidney disease. Notes: Determination of stages one and two (with eGFR >59mL/min/1.73 m2) requires estimation of kidney damage for at least three months as defined by structural or functional abnormalities of the kidney, manifested by either:Pathological abnormalities or Markers of kidney damage (including abnormalities in the composition of the blood or urine or abnormalities in imaging tests). Lab Interpretation (test code = 15856-0) Abnormal [facility] ResourcesHep[facility] Function Panel (ALB, T.PRO, BILI T, BU/BC, ALT, AST, ALK PHOS)2020-12-04 20:48:20* Test Item Value Reference Range Interpretation Comme nts TOTAL BILI (test code = 3901316877) 0.3 mg/dL 0.1-1.1 BILI UNCON (test code = 4088830738) 0.1 mg/dL 0.1-1.1 BILI CONJ (test code = 9257297575) 0.0 mg/dL 0.0-0.3 T PROTEIN (test code = 3221037074) 7.0 g/dL 6.3-8.2 ALBUMIN (test code = 9401875177) 4.0 g/dL 3.5-5.0 ALK PHOS (test code = 9417304798) 114 U/L 34-122 ALTv (test code = 1742-6) 30 U/L 5-35 AST(SGOT) (test code = 7124760897) 23 U/L 13-40 Lab Interpretation (test cod e = 41641-6) Normal [facility] ResourcesCBC with Snnaanyowwuh2381-21-22 20:35:01* Test Item Value Reference Range Interpretation Comme nts WBC (test code = 6690-2) See_Comment [Automated [email or web address]] The system which generated this result transmitted reference range: 4.30 - 11.10 10*3/?L. The reference range was not used to interpret this result as normal/abnormal. RBC (test code = 789-8) See_Comment [Automated [email or web address]] The system which generated this result transmitted reference range: 3.93 - 5.25 10*6/?L. The reference range was not used to interpret this result as normal/abnormal. HGB (test code = 718-7) 12.7 g/dL 11.6-15.0 HCT (test code = 4544-3) 37.3 % 35.7-45.2 MCV (test code = 787-2) 83.6 fL 80.6-95.5 MCH (test code = 785-6) 28.5 pg 25.9-32.8 MCHC (test code = 786-4) 34.0 g/dL 31.6-35.1 RDW-SD (test code = 47063-5) 39.8 fL 39.0-49.9 RDW-CV (test code = 788-0) 12.9 % 12.0-15.5 PLT (test code = 777-3) See_Comment [Automated messa ge] The system which generated this result transmitted reference range: 166 - 358 10*3/?L. The reference range was not used to interpret this result as normal/abnormal. MPV (test code = 41136-5) 9.3 fL 9.5-12.9 L NRBC/100 WBC (test code = 8707831192) See_Comment [Automated [employer] ssage] The system which generated this result transmitted reference range: 0.0 - 10.0 /100 WBCs. The reference range was not used to interpret this result as normal/abnormal. NRBC x10^3 (test code = 7693854727) <0.01 See_Comment [Automated messa ge] The system which generated this result transmitted reference range: 10*3/?L. The reference range was not used to interpret this result as normal/abnormal. GRAN MAT (NEUT) % (test code = 770-8) 71.5 % IMM GRAN % (test code = 4943672264) 0.30 % LYMPH % (test code = 736-9) 19.8 % MONO % (test code = 5905-5) 6.2 % EOS % (test code = 713-8) 1.8 % BASO % (test code = 706-2) 0.4 % GRAN MAT x10^3(ANC) (test code = 1652867693) 6.79 10*3/uL 1.88-7.09 IMM GRAN x10^3 (test code = 9987278444) 0.03 10*3/uL 0.00-0.06 LYMPH x10^3 (test code = 731-0) 1.88 10*3/uL 1.32-3.29 MONO x10^3 (test code = 742-7) 0.59 10*3/uL 0.33-0.92 EOS x10^3 (test code = 711-2) 0.17 10*3/uL 0.03-0.39 BASO x10^3 (test code = 704-7) 0.04 10*3/uL 0.01-0.07 Lab Interpretation (test code = 64377-0) Abnormal [facility]2020-11-04 02:54:38* Test Item Value Reference Range Interpretation Comme nts AMPHET (test code = 5965356082) Negative Negative Cocaine Metabolite (test code = 4441556443) Negative Negative OPIATES (test code = 4979838693) Presumptive Positive Negative A THC (test code = 0619614135) Negative Negative DARWIN (test code = DARWIN) Urine Drug Cutoff Ranges Amphetamine: ? 1,000 ng/mLCocaine: ? 150 ng/mLOpiates: ? 300 ng/mLCannabinoids: ?50 ng/mL The results are to be used only for medical (i.e., treatment) purposes. Unconfirmed screening results must not be used for non-medical purposes (e.g., employment testing, legal testing). Lab Interpretation (test code = 49412-8) Abnormal [facility] ResourcesTROPONIN [id number] 02:51:11* Test Item Value Reference Range Interpretation Comme nts TROPONIN I (test code = 5507553494) 0.001 ng/mL See_Comment [Automated message] The system which generated this result transmitted reference range: <=0.034. The reference range was not used to interpret this result as normal/abnormal. DARWIN (test code = DARWIN) Equal or Less than 0.034 ng/ml---Normal ?Note: Cardiac troponin begins to rise 3-4 hours after the onset of ischemia. Repeat in 4-6 hours if the sample was drawn within 3-4 hours of the onset of the symptom and found normal. Between 0.035 and 0.120 ng/mL--- Borderline. Questionable myocardial injury or necrosis ? ?Note: Serial measurement may be necessary to confirm or exclude the diagnosis of myocardial injury or necrosis; Clinical correlation (symptoms, EKGs, imaging studies, and others) required; Repeat in 4-6 hours if clinically indicated. ? Equal or Higher than 0.121 ng/mL---Abnormal. Myocardial Injury or Necrosis Likely ? Biotin has been reported to cause a negative bias, interpret results relative to patient's use of biotin. ? Lab Interpretation (test code = 76234-1) Normal [facility] ResourcesaPTT2021-04-30 02:41:10* Test Item Value Reference Range Interpretation Comme nts APTT Patient (test code = 3173-2) See_Comment [Automated message] The system which generated this result transmitted reference range: 23 - 38 Seconds. The reference range was not used to interpret this result as normal/abnormal. DARWIN (test code = DARWIN) The [facility] patient population mean normal value for aPTT is 30 seconds. Lab Interpretation (test code = 79820-1) Normal [facility] ResourcesURINALYSIS2021-04-30 02:40:40* Test Item Value Reference Range Interpretation Comme nts APPEARANCE (test code = 1449684101) Clear Clear COLOR (test code = 6296425257) Yellow Yellow PH (test code = 3605960999) 4.8-8.0 SP GRAVITY (test code = 0600847923) 1.003-1.030 GLU U QUAL (test code = 8340856899) Normal Normal BLOOD (test code = 5886231922) Negative Negative KETONES (test code = 3403489894) Negative Negative PROTEIN (test code = 2887-8) Negative Negative UROBILIN (test code = 1725802255) Normal Normal BILIRUBIN (test code = 1195624997) Negative Negative NITRITE (test code = 1168431907) Negative Negative LEUK MARC (test code = 1883096043) Negative Negative RBC/HPF (test code = 4968240245) <1 See_Comment [Automated messa ge] The system which generated this result transmitted reference range: 0 - 3 HPF. The reference range was not used to interpret this result as normal/abnormal. WBC/HPF (test code = 0784548802) <1 See_Comment [Automated [place] [employer]] The system which generated this result transmitted reference range: 0 - 5 HPF. The reference range was not used to interpret this result as normal/abnormal. BACTERIA (test code = 4502758262) Negative Negative MUCOUS (test code = 8213933518) Slight Negative LPF A SQ EPITH (test code = 9913063717) HPF Lab Interpretation (test code = 97903-5) Abnormal [facility]. METABOLIC PANEL (65851)2020-11-04 02:40:09* Test Item Value Reference Range Interpretation Comme nts NA (test code = 9986121195) 141 mmol/L 135-145 K (test code = 9145913955) 4.1 mmol/L 3.5-5.0 CL (test code = 4354467445) 110 mmol/L 98-108 H CO2 TOTAL (test code = 2316846170) 22 mmol/L 23-31 L AGAP (test code = 0160629868) 2-16 BUN (test code = 0337343916) 15 mg/dL 7-23 GLUCOSE (test code = 1772377460) 115 mg/dL 70-110 H CREATININE (test code = 8148776770) 0.69 mg/dL 0.50-1.04 TOTAL BILI (test code = 3978436024) 0.2 mg/dL 0.1-1.1 CALCIUM (test code = 6485402199) 9.2 mg/dL 8.6-10.6 T PROTEIN (test code = 9320795938) 6.8 g/dL 6.3-8.2 ALBUMIN (test code = 7518481447) 4.1 g/dL 3.5-5.0 ALK PHOS (test code = 2589214856) 69 U/L 34-122 ALTv (test code = 1742-6) 20 U/L 5-35 AST(SGOT) (test code = 2249628366) 23 U/L 13-40 eGFR (test code = 5449906361) mL/min/1.73m2 DARWIN (test code = DARWIN) Association of Glomerular Filtration Rate (GFR) and Staging of Kidney Disease* + --+ --+ ------+| GFR (mL/min/1.73 m2) ?| With Kidney Damage ?| ?Without Kidney Damage+ --------+ --------+ +| ?>90 ?| ?Stage one ?| ? Normal ?+ ---+ ---+ -------+| ?60-89 ?| ?Stage two ?| ? Decreased GFR ? + --+ --+ ------+| ?30-59 ?| ?Stage three ?| ? Stage three ? + --+ --+ ------+| ?15-29 ?| ?Stage four ? | ? Stage four ?+ ---+ ---+ -------+| ?<15 (or dialysis) ? ?| ?Stage five ? | ? Stage five ?+ ---+ ---+ -------+ *Each stage assumes the associated GFR level has been in effect for at least three months. ?Stages 1 to 5, with or without kidney disease, indicate chronic kidney disease. Notes: Determination of stages one and two (with eGFR >59mL/min/1.73 m2) requires estimation of kidney damage for at least three months as defined by structural or functional abnormalities of the kidney, manifested by either:Pathological abnormalities or Markers of kidney damage (including abnormalities in the composition of the blood or urine or abnormalities in imaging tests). Lab Interpretation (test code = 63138-3) Abnormal [facility] ResourcesLIPASE, [id number] 02:39:49* Test Item Value Reference Range Interpretation Comme nts LIPASE (test code = 4559885135) 117 U/L 0-220 Lab Interpretation (test cod e = 50916-7) Normal [facility] ResourcesPROTHROMBIN TIME / [id number] 02:39:08* Test Item Value Reference Range Interpretation Comme nts PROTIME PATIENT (test code = 5964-2) See_Comment [[employer]] The system which generated this result transmitted reference range: 12.0 - 14.7 Seconds. The reference range was not used to interpret this result as normal/abnormal. INR (test code = 6301-6) Normal INR <1.1; Warfarin Therapeutic range 2.0 to 3.0 or 2.5 to 3.5, depending upon the indications. Lab Interpretation (test code = 69880-2) Normal [facility] ResourcesCB WITH [id number] 02:30:11* Test Item Value Reference Range Interpretation Comme nts WBC (test code = 6690-2) See_Comment H [Automated [email or web address]] The system which generated this result transmitted reference range: 4.30 - 11.10 10*3/?L. The reference range was not used to interpret this result as normal/abnormal. RBC (test code = 789-8) See_Comment [Automated messa ge] The system which generated this result transmitted reference range: 3.93 - 5.25 10*6/?L. The reference range was not used to interpret this result as normal/abnormal. HGB (test code = 718-7) 13.2 g/dL 11.6-15.0 HCT (test code = 4544-3) 40.3 % 35.7-45.2 MCV (test code = 787-2) 87.2 fL 80.6-95.5 MCH (test code = 785-6) 28.6 pg 25.9-32.8 MCHC (test code = 786-4) 32.8 g/dL 31.6-35.1 RDW-SD (test code = 58480-7) 44.1 fL 39.0-49.9 RDW-CV (test code = 788-0) 13.8 % 12.0-15.5 PLT (test code = 777-3) See_Comment [Automated [place] [employer]] The system which generated this result transmitted reference range: 166 - 358 10*3/?L. The reference range was not used to interpret this result as normal/abnormal. MPV (test code = 20440-0) 9.6 fL 9.5-12.9 NRBC/100 WBC (test code = 3873824004) See_Comment [Automated [employer] ssage] The system which generated this result transmitted reference range: 0.0 - 10.0 /100 WBCs. The reference range was not used to interpret this result as normal/abnormal. NRBC x10^3 (test code = 4142614298) <0.01 See_Comment [Automated messa ge] The system which generated this result transmitted reference range: 10*3/?L. The reference range was not used to interpret this result as normal/abnormal. GRAN MAT (NEUT) % (test code = 770-8) 65.9 % IMM GRAN % (test code = 5270632804) 0.70 % LYMPH % (test code = 736-9) 25.9 % MONO % (test code = 5905-5) 5.1 % EOS % (test code = 713-8) 2.0 % BASO % (test code = 706-2) 0.4 % GRAN MAT x10^3(ANC) (test code = 8538471885) 8.82 10*3/uL 1.88-7.09 H IMM GRAN x10^3 (test code = 9749060387) 0.09 10*3/uL 0.00-0.06 H LYMPH x10^3 (test code = 731-0) 3.46 10*3/uL 1.32-3.29 H MONO x10^3 (test code = 742-7) 0.68 10*3/uL 0.33-0.92 EOS x10^3 (test code = 711-2) 0.27 10*3/uL 0.03-0.39 BASO x10^3 (test code = 704-7) 0.05 10*3/uL 0.01-0.07 Lab Interpretation (test code = 27343-2) Abnormal [facility] ResourcesCOVID-19 (ID NOW RAPID TESTING)2020-09-17 16:56:05* Test Item Value Reference Range Interpretation Comme nts SARS-CoV-2 Rapid ID NOW (test code = 90704-9) Not Detected Not Detected DARWIN (test code = DARWIN) ID NOW COVID-19 As say is an isothermal nucleic acid amplification test intended for the qualitative detection of nucleic acid from SARS-CoV-2 viral RNA in nasopharyngeal ([employer]) specimens. It is used under Emergency Use Authorization (EUA) by FDA. The limit of detection (LOD) of the assay is 125 Genome Equivalents/mL. A positive result is indicative of the presence of SARS-CoV-2 RNA. ?Clinical correlation with patient history and other diagnostic information is necessary to determine patient infection status. A negative (Not Detected) result does not preclude SARS-CoV-2 infection. In patients with clinical symptoms and other tests that are consistent with SARS-CoV-2 infection, negative results should be treated as presumptive negative and a new specimen should be tested with alternative PCR molecular test. Invalid: Please collect a new specimen for repeat patient testing if clinically indicated. Lab Interpretation (test code = 23197-8) Normal [facility] STREP SCREEN FOR GROUP [id number] 16:54:09* Test Item Value Reference Range Interpretation Comme nts Streptococcus pyogenes (grou p A) antigen (test code = 31719-8) Negative Negative Lab Interpretation (test cod e = 80256-9) Normal [facility] ResourcesXR HAND 3+ VW [id number] 07:29:48 Impression: No acute fracture or dislocation. RL: 2824AFC: 91910 End of Report Exam: Left Hand, 09/07/2020 12:45 AM. Ordering Physician: Saleem EDWARD. History: Left hand crush injury. Technique: 3 views of the left hand. Comparison: None. Findings: There is no acute fracture or dislocation. Joint spaces are preserved.There is no focal soft tissue swelling. [facility], Radiant Results Inft User - 09/07/2020 1:30 AM CSTExam: Left Hand, 112:45 AM.Ordering Physician: Saleem EDWARD.History: Left hand crush injury.Technique: 3 views of the left hand.Comparison: None.Findings: There is no acute fracture or dislocation. Joint spaces are p reserved.There is no focal soft tissue swelling.IMPRESSIONImpression: No acute fracture or dislocation.RL: 2824AFC: 29114Mcd of Report [facility] HospitalXR FOREARM 2 VW [id number] 07:28:55No acute abnormality of the left forearm. RL: 6200AFC: 17765 Patient name: CHARITY JOHNSONGRANTOB: 1980 40 years EXAMINATION: XR FOREARM 2 VW LEFT Ordering Physician: Saleem EDWARD CLINICAL HISTORY:crush injury COMPARISON:None TECHNIQUE:Frontal and lateral views of the left forearm performed FINDINGS:No fracture or dislocation identified. No joint space narrowing. No osseouslesions. No elbow joint effusion. Soft tissues are intact. [facility], Radiant Results Inft User - 09/07/2020 1:29 AM CSTPatient name: CHARITY MONROYOB: 1980 40 years EXAMINATION: XR FOREARM 2 VW LEFTOrdering Physician: Saleem EDWARD CLINICAL HISTORY:crush injury COMPARISON:NoneTECHNIQUE:Frontal and lateral views of the left forearm performedFINDINGS:No fracture or dislocation identified. No joint space narrowing. No osseouslesions. No elbow joint effusion. Soft tissues are intact.IMPRESSIONNo acute abnormality of the left forearm.RL: 6200AF: 69540 [facility] HospitalUrinalysis2021-02-21 09:06:00* Test Item Value Reference Range Interpretation Comme nts APPEARANCE (test code = 1507071878) Hazy Clear A COLOR (test code = 4948303059) Yellow Yellow PH (test code = 5511622892) 4.8-8.0 SP GRAVITY (test code = 6854632504) 1.003-1.030 GLU U QUAL (test code = 8571329185) Normal Normal BLOOD (test code = 7419299798) Negative Negative KETONES (test code = 2233771795) Negative Negative PROTEIN (test code = 2887-8) Negative Negative UROBILIN (test code = 6455176437) Normal Normal BILIRUBIN (test code = 6734882183) Negative Negative NITRITE (test code = 6864300002) Negative Negative LEUK MARC (test code = 4691753671) Negative Negative RBC/HPF (test code = 1606087658) See_Comment [Automated messa ge] The system which generated this result transmitted reference range: 0 - 3 HPF. The reference range was not used to interpret this result as normal/abnormal. WBC/HPF (test code = 2157807373) <1 See_Comment [Automated messa ge] The system which generated this result transmitted reference range: 0 - 5 HPF. The reference range was not used to interpret this result as normal/abnormal. BACTERIA (test code = 6996690346) Moderate Negative A SQ EPITH (test code = 3478545163) HPF Lab Interpretation (test code = 10824-3) Abnormal [facility] with [id number] 08:50:00* Test Item Value Reference Range Interpretation Comme nts WBC (test code = 6690-2) See_Comment H [Automated messa ge] The system which generated this result transmitted reference range: 4.30 - 11.10 10*3/?L. The reference range was not used to interpret this result as normal/abnormal. RBC (test code = 789-8) See_Comment [Automated messa ge] The system which generated this result transmitted reference range: 3.93 - 5.25 10*6/?L. The reference range was not used to interpret this result as normal/abnormal. HGB (test code = 718-7) 13.4 g/dL 11.6-15 HCT (test code = 4544-3) 39.4 % 35.7-45.2 MCV (test code = 787-2) 85.7 fL 80.6-95.5 MCH (test code = 785-6) 29.1 pg 25.9-32.8 MCHC (test code = 786-4) 34.0 g/dL 31.6-35.1 RDW-SD (test code = 23999-4) 42.6 fL 39-49.9 RDW-CV (test code = 788-0) 13.6 % 12-15.5 PLT (test code = 777-3) See_Comment H [Automated messa ge] The system which generated this result transmitted reference range: 166 - 358 10*3/?L. The reference range was not used to interpret this result as normal/abnormal. MPV (test code = 69311-0) 9.7 fL 9.5-12.9 NRBC/100 WBC (test code = 6673056664) See_Comment [Automated [employer] ssage] The system which generated this result transmitted reference range: 0.0 - 10.0 /100 WBCs. The reference range was not used to interpret this result as normal/abnormal. NRBC x10^3 (test code = 6278274344) <0.01 See_Comment [Automated messa ge] The system which generated this result transmitted reference range: 10*3/?L. The reference range was not used to interpret this result as normal/abnormal. GRAN MAT (NEUT) % (test code = 770-8) 49.7 % IMM GRAN % (test code = 8526185316) 0.50 % LYMPH % (test code = 736-9) 41.0 % MONO % (test code = 5905-5) 6.5 % EOS % (test code = 713-8) 1.9 % BASO % (test code = 706-2) 0.4 % GRAN MAT x10^3(ANC) (test code = 3608544905) 6.39 10*3/uL 1.88-7.09 IMM GRAN x10^3 (test code = 8298977630) 0.07 10*3/uL 0-0.06 H LYMPH x10^3 (test code = 731-0) 5.27 10*3/uL 1.32-3.29 H MONO x10^3 (test code = 742-7) 0.84 10*3/uL 0.33-0.92 EOS x10^3 (test code = 711-2) 0.24 10*3/uL 0.03-0.39 BASO x10^3 (test code = 704-7) 0.05 10*3/uL 0.01-0.07 Lab Interpretation (test code = 71564-4) Abnormal [facility] ResourcesPOCT [id number] 08:45:00* Test Item Value Reference Range Interpretation Comme nts POCT PREG (test code = 1605) neg On board controls acceptable with C Line (test code = 3574) yes POCT PREG LOT # (test code = 3575) [id number] POCT PREG TEST DATE ( test code = 3576) 04/06/2022 Lab Interpretation (test cod e = 30832-8) Normal [facility] ResourcesComplete Metabolic [id number] 08:30:00* Test Item Value Reference Range Interpretation Comme nts NA (test code = 1350082978) 137 mmol/L 135-145 K (test code = 3594563463) 3.3 mmol/L 3.5-5 L CL (test code = 3220803637) 102 mmol/L 98-108 CO2 TOTAL (test code = 1514424942) 24 mmol/L 23-31 AGAP (test code = 7153005441) 2-16 BUN (test code = 1652636488) 9 mg/dL 7-23 GLUCOSE (test code = 1066747428) 116 mg/dL 70-110 H CREATININE (test code = 9877035681) 0.48 mg/dL 0.5-1.04 L TOTAL BILI (test code = 0173035145) 0.3 mg/dL 0.1-1.1 CALCIUM (test code = 0351449364) 9.4 mg/dL 8.6-10.6 T PROTEIN (test code = 5482940223) 7.0 g/dL 6.3-8.2 ALBUMIN (test code = 8362779783) 4.3 g/dL 3.5-5 ALK PHOS (test code = 5679242241) 127 U/L 34-122 H ALTv (test code = 1742-6) 87 U/L 5-35 H AST(SGOT) (test code = 5707573856) 34 U/L 13-40 eGFR Calculation (Non-) (test code = 0839572516) mL/min/1.73m2 eGFR Calculation () (test code = 0739389314) mL/min/1.73m2 DARWIN (test code = DARWIN) Association of Glomerular Filtration Rate (GFR) and Staging of Kidney Disease* + --+ --+ ------+| GFR (mL/min/1.73 m2) ?| With Kidney Damage ?| ?Without Kidney Damage+ --------+ --------+ +| ?>90 ?| ?Stage one ?| ? Normal ?+ ---+ ---+ -------+| ?60-89 ?| ?Stage two ?| ? Decreased GFR ? + --+ --+ ------+| ?30-59 ?| ?Stage three ?| ? Stage three ? + --+ --+ ------+| ?15-29 ?| ?Stage four ? | ? Stage four ?+ ---+ ---+ -------+| ?<15 (or dialysis) ? ?| ?Stage five ? | ? Stage five ?+ ---+ ---+ -------+ *Each stage assumes the associated GFR level has been in effect for at least three months. ?Stages 1 to 5, with or without kidney disease, indicate chronic kidney disease. Notes: Determination of stages one and two (with eGFR >59mL/min/1.73 m2) requires estimation of kidney damage for at least three months as defined by structural or functional abnormalities of the kidney, manifested by either:Pathological abnormalities or Markers of kidney damage (including abnormalities in the composition of the blood or urine or abnormalities in imaging tests). Lab Interpretation (test code = 38245-7) Abnormal [facility] ResourcesLipase, [id number] 08:30:00* Test Item Value Reference Range Interpretation Comme nts LIPASE (test code = 7796635870) 297 U/L 0-220 H Lab Interpretation (test cod e = 63421-4) Abnormal [facility] ResourcesURINALYSIS2021-02-07 19:25:00* Test Item Value Reference Range Interpretation Comme nts APPEARANCE (test code = 6625395531) Clear Clear COLOR (test code = 5548392420) Straw Yellow A PH (test code = 8503387179) 4.8-8.0 SP GRAVITY (test code = 4919253461) 1.003-1.030 GLU U QUAL (test code = 0402310610) Normal Normal BLOOD (test code = 1025171565) 1+ Negative A KETONES (test code = 0701095611) Negative Negative PROTEIN (test code = 2887-8) Negative Negative UROBILIN (test code = 1025552225) Normal Normal BILIRUBIN (test code = 5979910995) Negative Negative NITRITE (test code = 9134314135) Negative Negative LEUK MARC (test code = 0380085241) Negative Negative RBC/HPF (test code = 3817098893) See_Comment [Automated [employer] [place] [employer]] The system which generated this result transmitted reference range: 0 - 3 HPF. The reference range was not used to interpret this result as normal/abnormal. WBC/HPF (test code = 1131267482) <1 See_Comment [Automated [place] [employer]] The system which generated this result transmitted reference range: 0 - 5 HPF. The reference range was not used to interpret this result as normal/abnormal. BACTERIA (test code = 5402882926) Few Negative A MUCOUS (test code = 9827804791) Slight Negative LPF A SQ EPITH (test code = 6202487975) HPF Lab Interpretation (test code = 17369-0) Abnormal [facility] ResourcesTROPONIN [id number] 19:09:00* Test Item Value Reference Range Interpretation Comme nts TROPONIN I (test code = 2810241411) <0.012 See_Comment [Automated message] The system which generated this result transmitted reference range: <=0.034 ng/mL. The reference range was not used to interpret this result as normal/abnormal. DARWIN (test code = DARWIN) Equal or Less than 0.034 ng/ml---Normal ?Note: Cardiac troponin begins to rise 3-4 hours after the onset of ischemia. Repeat in 4-6 hours if the sample was drawn within 3-4 hours of the onset of the symptom and found normal. Between 0.035 and 0.120 ng/mL--- Borderline. Questionable myocardial injury or necrosis ? ?Note: Serial measurement may be necessary to confirm or exclude the diagnosis of myocardial injury or necrosis; Clinical correlation (symptoms, EKGs, imaging studies, and others) required; Repeat in 4-6 hours if clinically indicated. ? Equal or Higher than 0.121 ng/mL---Abnormal. Myocardial Injury or Necrosis Likely ? Biotin has been reported to cause a negative bias, interpret results relative to patient's use of biotin. ? Lab Interpretation (test code = 13356-9) Normal [facility] - DRUG SCREEN [id number] 19:09:00* Test Item Value Reference Range Interpretation Comme nts BENZO U (test code = 4624418365) Presumptive Positive Negative A ROSA U (test code = 4949303719) Negative Negative AMPHET (test code = 6681874064) Negative Negative THC (test code = 6006291920) Negative Negative METHADONE (test code = 9935069030) Negative Negative Meth U (test code = 8494216097) Negative Negative OPIATES (test code = 8738469320) Negative Negative Cocaine Metabolite (test code = 8584270349) Negative Negative PROPOXY (test code = 4358966404) Negative Negative Tric U (test code = 4437739962) Negative Negative PCP (test code = 8088327991) Negative Negative OXYCOD (test code = 9233311867) Negative Negative DARWIN (test code = DARWIN) Urine Drug Cutoff Ranges Benzodiazepines: ? ? 150 ng/mLBarbiturates: ?200 ng/mLAmphetamine: ? 500 ng/mLCannabinoids: ?50 ?ng/mLMethadone: ? 200 ng/mLMethamphetamine: ? ? 500 ng/mL Opiates: ? 100 ng/mL or 2000 ng/mLCocaine: ? 150 ng/mLPropoxyphene: ?300 ng/mLTricyclics: ?300 ng/mLOxycodone: ? 100 ng/mLPCP: ? 25 ?ng/mL The results are to be used only for medical (i.e., treatment) purposes. Unconfirmed screening results must not be used for non-medical purposes (e.g., employment testing, legal testing). Lab Interpretation (test code = 60006-5) [facility]2020-08-14 19:01:00* Test Item Value Reference Range Interpretation Comme nts NA (test code = 0689166612) 138 mmol/L 135-145 K (test code = 2009746333) 4.5 mmol/L 3.5-5 CL (test code = 1152321339) 106 mmol/L 98-108 CO2 TOTAL (test code = 5646128444) 21 mmol/L 23-31 L AGAP (test code = 7290141084) 2-16 BUN (test code = 3734702399) 13 mg/dL 7-23 GLUCOSE (test code = 3980737175) 97 mg/dL 70-110 CREATININE (test code = 0227615688) 0.48 mg/dL 0.5-1.04 L TOTAL BILI (test code = 2381502007) 0.4 mg/dL 0.1-1.1 CALCIUM (test code = 6821696387) 9.1 mg/dL 8.6-10.6 T PROTEIN (test code = 8205614816) 7.5 g/dL 6.3-8.2 ALBUMIN (test code = 7335479617) 4.3 g/dL 3.5-5 ALK PHOS (test code = 3757388351) 62 U/L 34-122 ALTv (test code = 1742-6) 19 U/L 5-35 AST(SGOT) (test code = 0133117637) 26 U/L 13-40 eGFR Calculation (Non-) (test code = 7797322729) mL/min/1.73m2 eGFR Calculation () (test code = 6091205377) mL/min/1.73m2 DARWIN (test code = DARWIN) Association of Glomerular Filtration Rate (GFR) and Staging of Kidney Disease* + --+ --+ ------+| GFR (mL/min/1.73 m2) ?| With Kidney Damage ?| ?Without Kidney Damage+ --------+ --------+ +| ?>90 ?| ?Stage one ?| ? Normal ?+ ---+ ---+ -------+| ?60-89 ?| ?Stage two ?| ? Decreased GFR ? + --+ --+ ------+| ?30-59 ?| ?Stage three ?| ? Stage three ? + --+ --+ ------+| ?15-29 ?| ?Stage four ? | ? Stage four ?+ ---+ ---+ -------+| ?<15 (or dialysis) ? ?| ?Stage five ? | ? Stage five ?+ ---+ ---+ -------+ *Each stage assumes the associated GFR level has been in effect for at least three months. ?Stages 1 to 5, with or without kidney disease, indicate chronic kidney disease. Notes: Determination of stages one and two (with eGFR >59mL/min/1.73 m2) requires estimation of kidney damage for at least three months as defined by structural or functional abnormalities of the kidney, manifested by either:Pathological abnormalities or Markers of kidney damage (including abnormalities in the composition of the blood or urine or abnormalities in imaging tests). Lab Interpretation (test code = 15549-3) Abnormal [facility] 19:01:00* Test Item Value Reference Range Interpretation Comme nts LIPASE (test code = 2363276027) 76 U/L 0-220 Lab Interpretation (test cod e = 30858-1) Normal [facility] ResourcesCB WITH [id number] 18:47:00* Test Item Value Reference Range Interpretation Comme nts WBC (test code = 6690-2) See_Comment H [Automated [email or web address]] The system which generated this result transmitted reference range: 4.30 - 11.10 10*3/?L. The reference range was not used to interpret this result as normal/abnormal. RBC (test code = 789-8) See_Comment [Automated messa ge] The system which generated this result transmitted reference range: 3.93 - 5.25 10*6/?L. The reference range was not used to interpret this result as normal/abnormal. HGB (test code = 718-7) 13.9 g/dL 11.6-15 HCT (test code = 4544-3) 40.5 % 35.7-45.2 MCV (test code = 787-2) 86.0 fL 80.6-95.5 MCH (test code = 785-6) 29.5 pg 25.9-32.8 MCHC (test code = 786-4) 34.3 g/dL 31.6-35.1 RDW-SD (test code = 20994-4) 42.0 fL 39-49.9 RDW-CV (test code = 788-0) 13.4 % 12-15.5 PLT (test code = 777-3) See_Comment [Automated [employer] [place] [employer]] The system which generated this result transmitted reference range: 166 - 358 10*3/?L. The reference range was not used to interpret this result as normal/abnormal. MPV (test code = 43890-0) 9.9 fL 9.5-12.9 NRBC/100 WBC (test code = 6685820555) See_Comment [Automated [employer]] The system which generated this result transmitted reference range: 0.0 - 10.0 /100 WBCs. The reference range was not used to interpret this result as normal/abnormal. NRBC x10^3 (test code = 7856144415) <0.01 See_Comment [Automated messa ge] The system which generated this result transmitted reference range: 10*3/?L. The reference range was not used to interpret this result as normal/abnormal. GRAN MAT (NEUT) % (test code = 770-8) 60.1 % IMM GRAN % (test code = 5105256894) 0.40 % LYMPH % (test code = 736-9) 31.3 % MONO % (test code = 5905-5) 6.0 % EOS % (test code = 713-8) 1.9 % BASO % (test code = 706-2) 0.3 % GRAN MAT x10^3(ANC) (test code = 8530761502) 6.96 10*3/uL 1.88-7.09 IMM GRAN x10^3 (test code = 8084911234) 0.05 10*3/uL 0-0.06 LYMPH x10^3 (test code = 731-0) 3.62 10*3/uL 1.32-3.29 H MONO x10^3 (test code = 742-7) 0.69 10*3/uL 0.33-0.92 EOS x10^3 (test code = 711-2) 0.22 10*3/uL 0.03-0.39 BASO x10^3 (test code = 704-7) 0.04 10*3/uL 0.01-0.07 Lab Interpretation (test code = 54278-3) Abnormal [facility] ResourcesXR CHEST 1 [id number] 18:17:08No acute cardiopulmonary abnormality. Preliminary Report Dictated by Resident: Adam Malin MD., have reviewed this study and agree with theabove report.EXAM:XR CHEST 1 VW HISTORY: 40 years-old female; Indication for study: chest pain COMPARISON: Chest radiograph dated 08/10/2020 FINDINGS: Lungs/Pleura: The lungs are clear with no focal consolidation. There is nopleural effusion or pneumothorax. Heart/Mediastinum: The cardiomediastinal silhouette is normal. Bones and soft tissues: No acute abnormality detected. [facility], Radiant Results Inft User - 08/14/2020 12:18 PM CSTEXAM:XR CHEST 1 VWHISTORY: 40 years-old female; Indication for study: chest pain COMPARISON: Chest radiograph dated 08/10/2020FINDINGS:Lungs/Pleura: The lungs are clear with no focal consolidation. There is nopleural effusion or pneumothorax.Heart/Mediastinum: The cardiomediastinal silhouette is normal.Bones and soft tissues: No acute abnormality detected.IMPRESSIONNo acute cardiopulmonary abnormality.Preliminary Report Dictated by Resident: Adam Pope MD., have reviewed this study and agree with theabove report.[facility] BranchL[facility] Acid Whole [id number] 18:11:00* Test Item Value Reference Range Interpretation Comme nts LACTIC ACID (test code = 5853478517) 1.95 mmol/L 0.5-2.2 Lab Interpretation (test cod e = 66960-5) Normal [facility] ResourcesCT ABDOMEN PELVIS WO [id number] 05:45:24No acute abdominopelvic abnormality. No urolithiasis. 2.5 cm left adrenal adenoma. 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 Preliminary Report Dictated by Resident: oJna Whalen MD., have reviewed this study and agree with the abovereport.EXAM: CT ABDOMEN AND PELVIS WITHOUT CONTRAST HISTORY: 40-year-old female "flank pain, kidney stone suspected". COMPARISON: CT abdomen and pelvis with contrast 05/15/2020. TECHNIQUE AND FINDINGS: Contiguous axial imaging from the level of the lungbases through the pubic symphysis was performed without the intravenousadministration of contrast. Coronal and sagittal reconstructions wereobtained. ?Auto mA and/or iterative reconstruction were used to reduceradiation dose. FINDINGS: LOWER THORAX: The lungs bases are clear. No cardiomegaly. LIVER: No focal hepatic lesions.?Normal liver contour. GALLBLADDER AND BILIARY TREE: No biliary ductal dilation. Cholecystectomy. SP SHRADDHA: No splenomegaly. 0.8 calcification in the upper splenic pole. PANCREAS: No ductal dilation. ADRENAL GLANDS: 2.5 cm adenoma. No right adrenal nodule. KIDNEYS: No hydronephrosis or stone. The ureters are normal in caliberwithout stone. PERITONEUM AND RETROPERITONEUM: No free air or fluid. LYMPHNODES: No lymphadenopathy. GI TRACT: No dilation or wall thickening. The appendix is normal. PELVIS/BLADDER: Posterior intramural uterine fibroid redemonstrated, betterappreciated on recent contrast-enhanced CT. The ovaries are unremarkable.The urinary bladder is minimally distended without wall thickening. Nointravesical stone. VESSELS: Unremarkable. BONES AND SOFT TISSUES: No suspicious lytic or sclerotic bony lesions.Ossification of the posterior longitudinal ligament partially visualized atT7 and T8 levels; at least mild spinal canal stenosis at these levels. [facility], Radiant Results Inft User - 08/10/2020 11:46 PM CSTEXAM: CT ABDOMEN AND PELVIS WITHOUT CONTRASTHISTORY: 40-year-old female "flank pain, kidney stone suspected".COMPARISON: CT abdomen and pelvis with contrast 05/15/2020.TECHNIQUE AND FINDINGS: Contiguous axial imaging from the level of the lungbases through the pubic symphysis was performed without the intravenousadministration of contrast. Coronal and sagittal reconstructions wereobtained. Auto mA and/or iterative reconstruction were used to reduceradiation dose.FINDINGS:LOWER THORAX: The lungs bases are clear. No cardiomegaly.LIVER: No focal hepatic lesions. Normal liver contour.GALLBLADDER AND BILIARY TREE: No biliary ductal dilation. Cholecystectomy. SPLEEN: No splenomegaly. 0.8 calcification in the upper splenic pole.PANCREAS: No ductal dilation.ADRENAL GLANDS: 2.5 cm adenoma. No right adrenal nodule.KIDNEYS: No hydronephrosis or stone. The ureters are normal in caliberwithout stone.PERITONEUM AND RETROPERITONEUM: No free air or fluid.LYMPH NODES: No lymphadenopathy.GI TRACT: No dilation or wall thickening. The appendix is normal.PELVIS/BLADDER: Posterior intramural uterine fibroid redemonstrated, betterappreciated on recent contrast-enhanced CT. The ovaries are unremarkable.The urinary bladder is minimally distended without wall thickening. Nointravesical stone.VESSELS: Unremarkable.BONES AND SOFT TISSUES: No suspicious lytic or sclerotic bony lesions.Ossification of the posterior longitudinal ligament partially visualized atT7 and T8 levels; at least mild spinal canal stenosis at these levels.IMPRESSIONNo acute abdominopelvic abnormality. 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.Preliminary Report Dictated by Resident: Murali Mckenzie, Jona Wisdom MD., have reviewed this study and agree with the abovereport.[facility] ResourcesPOMD [id number] 03:10:00* Test Item Value Reference Range Interpretation Comme nts POCT PREG (test code = 1605) Negative On board controls acceptable with C Line (test code = 3574) Present POCT PREG LOT # (test code = 3575) [id number] POCT PREG TEST DATE ( test code = 3576) 03/07/2022 Lab Interpretation (test cod e = 02626-3) Normal [facility] with Cjgpgfunjpuj4547-39-81 03:05:00* Test Item Value Reference Range Interpretation Comme nts WBC (test code = 6690-2) See_Comment H [Automated message] The system which generated this result transmitted reference range: 4.30 - 11.10 10*3/?L. The reference range was not used to interpret this result as normal/abnormal. RBC (test code = 789-8) See_Comment [Automated message] The system which generated this result transmitted reference range: 3.93 - 5.25 10*6/?L. The reference range was not used to interpret this result as normal/abnormal. HGB (test code = 718-7) 14.2 g/dL 11.6-15 HCT (test code = 4544-3) 40.9 % 35.7-45.2 MCV (test code = 787-2) 85.0 fL 80.6-95.5 MCH (test code = 785-6) 29.5 pg 25.9-32.8 MCHC (test code = 786-4) 34.7 g/dL 31.6-35.1 RDW-SD (test code = 96865-3) 42.0 fL 39-49.9 RDW-CV (test code = 788-0) 13.5 % 12-15.5 PLT (test code = 777-3) See_Comment [Automated message] The system which generated this result transmitted reference range: 166 - 358 10*3/?L. The reference range was not used to interpret this result as normal/abnormal. MPV (test code = 65985-6) 9.8 fL 9.5-12.9 NRBC/100 WBC (test code = 3788835899) See_Comment [Automated message] The system which generated this result transmitted reference range: 0.0 - 10.0 /100 WBCs. The reference range was not used to interpret this result as normal/abnormal. NRBC x10^3 (test code = 1203528078) <0.01 See_Comment [Automated message] The system which generated this result transmitted reference range: 10*3/?L. The reference range was not used to interpret this result as normal/abnormal. GRAN MAT (NEUT) % (test code = 770-8) 66.2 % IMM GRAN % (test code = 1302885976) 0.60 % LYMPH % (test code = 736-9) 25.4 % MONO % (test code = 5905-5) 5.6 % EOS % (test code = 713-8) 1.9 % BASO % (test code = 706-2) 0.3 % GRAN MAT x10^3(ANC) (test code = 0687296038) 10.64 10*3/uL 1.88-7.09 H IMM GRAN x10^3 (test code = 3629959100) 0.09 10*3/uL 0-0.06 H LYMPH x10^3 (test code = 731-0) 4.09 10*3/uL 1.32-3.29 H MONO x10^3 (test code = 742-7) 0.90 10*3/uL 0.33-0.92 EOS x10^3 (test code = 711-2) 0.31 10*3/uL 0.03-0.39 BASO x10^3 (test code = 704-7) 0.05 10*3/uL 0.01-0.07 Lab Interpretation (test code = 94445-7) Abnormal [facility] ResourcesUrinalysis2021-02-04 02:56:00* Test Item Value Reference Range Interpretation Comme nts APPEARANCE (test code = 4586593022) Hazy Clear A COLOR (test code = 5325262977) Yellow Yellow PH (test code = 3672704736) 4.8-8.0 SP GRAVITY (test code = 5398985465) 1.003-1.030 GLU U QUAL (test code = 0002138580) Normal Normal BLOOD (test code = 9642052871) Negative Negative KETONES (test code = 4674861117) Negative Negative PROTEIN (test code = 2887-8) Negative Negative UROBILIN (test code = 4230695824) Normal Normal BILIRUBIN (test code = 0558264589) Negative Negative NITRITE (test code = 7721547366) Negative Negative LEUK MARC (test code = 9732081398) Negative Negative RBC/HPF (test code = 8863529466) See_Comment [Automated [employer] [place] [employer]] The system which generated this result transmitted reference range: 0 - 3 HPF. The reference range was not used to interpret this result as normal/abnormal. WBC/HPF (test code = 8099418703) See_Comment [Automated [employer] [place] [employer]] The system which generated this result transmitted reference range: 0 - 5 HPF. The reference range was not used to interpret this result as normal/abnormal. BACTERIA (test code = 8935760747) Few Negative A MUCOUS (test code = 2377651543) Slight Negative LPF A SQ EPITH (test code = 0419873563) HPF YEAST BUD (test code = 3313361598) See_Comment H [Automated [employer] [place] [employer]] The system which generated this result transmitted reference range: <=1 HPF. The reference range was not used to interpret this result as normal/abnormal. Lab Interpretation (test code = 05815-3) Abnormal [facility] [id number] 02:24:00* Test Item Value Reference Range Interpretation Comme nts TROPONIN I (test code = 2660617696) <0.012 See_Comment [Automated message] The system which generated this result transmitted reference range: <=0.034 ng/mL. The reference range was not used to interpret this result as normal/abnormal. DARWIN (test code = DARWIN) Equal or Less than 0.034 ng/ml---Normal ?Note: Cardiac troponin begins to rise 3-4 hours after the onset of ischemia. Repeat in 4-6 hours if the sample was drawn within 3-4 hours of the onset of the symptom and found normal. Between 0.035 and 0.120 ng/mL--- Borderline. Questionable myocardial injury or necrosis ? ?Note: Serial measurement may be necessary to confirm or exclude the diagnosis of myocardial injury or necrosis; Clinical correlation (symptoms, EKGs, imaging studies, and others) required; Repeat in 4-6 hours if clinically indicated. ? Equal or Higher than 0.121 ng/mL---Abnormal. Myocardial Injury or Necrosis Likely ? Biotin has been reported to cause a negative bias, interpret results relative to patient's use of biotin. ? Lab Interpretation (test code = 96536-1) Normal [facility] ResourcesCOVID-[facility] (ID NOW RAPID TESTING)2020-08-11 02:15:00* Test Item Value Reference Range Interpretation Comme nts SARS-CoV-2 Rapid ID NOW (test code = 73303-6) Not Detected Not Detected DARWIN (test code = DARWIN) ID NOW COVID-19 As say is an isothermal nucleic acid amplification test intended for the qualitative detection of nucleic acid from SARS-CoV-2 viral RNA in nasopharyngeal ([employer]) specimens. It is used under Emergency Use Authorization (EUA) by FDA. The limit of detection (LOD) of the assay is 125 Genome Equivalents/mL. A positive result is indicative of the presence of SARS-CoV-2 RNA. ?Clinical correlation with patient history and other diagnostic information is necessary to determine patient infection status. A negative (Not Detected) result does not preclude SARS-CoV-2 infection. In patients with clinical symptoms and other tests that are consistent with SARS-CoV-2 infection, negative results should be treated as presumptive negative and a new specimen should be tested with alternative PCR molecular test. Invalid: Please collect a new specimen for repeat patient testing if clinically indicated. Lab Interpretation (test code = 29220-8) Normal [facility] Metabolic Panel (NA, K, CL, CO2, GLUCOSE, BUN, CREATININE, CA)2020-08-11 02:13:00* Test Item Value Reference Range Interpretation Comme nts NA (test code = 9823086271) 137 mmol/L 135-145 K (test code = 2165839666) 4.0 mmol/L 3.5-5 CL (test code = 5073864091) 107 mmol/L 98-108 CO2 TOTAL (test code = 3736337323) 19 mmol/L 23-31 L AGAP (test code = 8175602208) 2-16 BUN (test code = 2156010876) 10 mg/dL 7-23 GLUCOSE (test code = 7961392282) 106 mg/dL 70-110 CREATININE (test code = 2965899472) 0.47 mg/dL 0.5-1.04 L CALCIUM (test code = 0413621966) 9.2 mg/dL 8.6-10.6 eGFR Calculation (Non-) (test code = 0974168155) mL/min/1.73m2 eGFR Calculation () (test code = 4025199554) mL/min/1.73m2 DARWIN (test code = DARWIN) Association of Glomerular Filtration Rate (GFR) and Staging of Kidney Disease* + --+ --+ ------+| GFR (mL/min/1.73 m2) ?| With Kidney Damage ?| ?Without Kidney Damage+ --------+ --------+ +| ?>90 ?| ?Stage one ?| ? Normal ?+ ---+ ---+ -------+| ?60-89 ?| ?Stage two ?| ? Decreased GFR ? + --+ --+ ------+| ?30-59 ?| ?Stage three ?| ? Stage three ? + --+ --+ ------+| ?15-29 ?| ?Stage four ? | ? Stage four ?+ ---+ ---+ -------+| ?<15 (or dialysis) ? ?| ?Stage five ? | ? Stage five ?+ ---+ ---+ -------+ *Each stage assumes the associated GFR level has been in effect for at least three months. ?Stages 1 to 5, with or without kidney disease, indicate chronic kidney disease. Notes: Determination of stages one and two (with eGFR >59mL/min/1.73 m2) requires estimation of kidney damage for at least three months as defined by structural or functional abnormalities of the kidney, manifested by either:Pathological abnormalities or Markers of kidney damage (including abnormalities in the composition of the blood or urine or abnormalities in imaging tests). Lab Interpretation (test code = 67968-3) Abnormal [facility] ResourcesHep[facility] Function Panel (ALB, T.PRO, BILI T, BU/BC, ALT, AST, ALK PHOS)2020-08-11 02:13:00* Test Item Value Reference Range Interpretation Comme nts TOTAL BILI (test code = 4896885963) 0.4 mg/dL 0.1-1.1 BILI UNCON (test code = 9885166953) 0.3 mg/dL 0.1-1.1 BILI CONJ (test code = 2596688848) 0.0 mg/dL 0-0.3 T PROTEIN (test code = 7440115655) 7.5 g/dL 6.3-8.2 ALBUMIN (test code = 8116018304) 4.4 g/dL 3.5-5 ALK PHOS (test code = 4557238987) 48 U/L 34-122 ALTv (test code = 1742-6) 12 U/L 5-35 AST(SGOT) (test code = 5365543215) 22 U/L 13-40 Lab Interpretation (test cod e = 60009-7) Normal [facility] ResourcesLipase Vfxom4212-16-09 02:13:00* Test Item Value Reference Range Interpretation Comme nts LIPASE (test code = 0725072942) 78 U/L 0-220 Lab Interpretation (test cod e = 47618-7) Normal [facility] ResourcesLactic Acid Whole [id number] 02:05:00* Test Item Value Reference Range Interpretation Comme nts LACTIC ACID (test code = 0088754303) 1.47 mmol/L 0.5-2.2 Lab Interpretation (test cod e = 89571-4) Normal [facility] ResourcesXR FOREARM 2 VW [id number] 14:31:40No acute bony abnormality. Soft tissue swelling. Osteoarthrosis of the elbow. Preliminary Report Dictated by Resident: Mickey Moore MD., have reviewed this study and agree with the abovereport.EXAM: XR FOREARM 2 VW LEFT HISTORY: forearm pain COMPARISON: None. FINDINGS: Radiographs of the left forearm demonstrate no acute fractures ordislocations. Negative ulnar variance is noted. Marginal osteophytosis isseen at the ulnar trochlear joint with subchondral sclerosis. The alignmentis anatomic. Minimal soft tissue swelling is present in the distal forearm. [facility], Radiant Results Inft User - 08/07/2020 8:32 AM CSTEXAM: XR FOREARM 2 VW LEFTHISTORY: forearm pain COMPARISON: None.FINDINGS: Radiographs of the left forearm demonstrate no acute fractures ordislocations. Negative ulnar variance is noted. Marginal osteophytosis isseen at the ulnar trochlear joint with subchondralsclerosis. The alignmentis anatomic. Minimal soft tissue swelling is present in the distal forearm.IMPRESSIONNo acute bony abnormality.Soft tissue swelling.Osteoarthrosis of the elbow.Preliminary Report Dictated by Resident: Mickey Torres MD., have reviewed this study and agree with the abovereport.[facility] ResourcesCOVID-[facility] (ID NOW RAPID TESTING)2020-08-07 14:18:00* Test Item Value Reference Range Interpretation Comme nts SARS-CoV-2 Rapid ID NOW (test code = 26776-8) Not Detected Not Detected DARWIN (test code = DARWIN) ID NOW COVID-19 As say is an isothermal nucleic acid amplification test intended for the qualitative detection of nucleic acid from SARS-CoV-2 viral RNA in nasopharyngeal ([employer]) specimens. It is used under Emergency Use Authorization (EUA) by FDA. The limit of detection (LOD) of the assay is 125 Genome Equivalents/mL. A positive result is indicative of the presence of SARS-CoV-2 RNA. ?Clinical correlation with patient history and other diagnostic information is necessary to determine patient infection status. A negative (Not Detected) result does not preclude SARS-CoV-2 infection. In patients with clinical symptoms and other tests that are consistent with SARS-CoV-2 infection, negative results should be treated as presumptive negative and a new specimen should be tested with alternative PCR molecular test. Invalid: Please collect a new specimen for repeat patient testing if clinically indicated. Lab Interpretation (test code = 68595-2) Normal [facility] ResourcesTROPONIN [id number] 02:54:00* Test Item Value Reference Range Interpretation Comme [facility] TROPONIN I (test code = 0388595194) <0.012 See_Comment [Automated message] The system which generated this result transmitted reference range: <=0.034 ng/mL. The reference range was not used to interpret this result as normal/abnormal. DARWIN (test code = DARWIN) Equal or Less than 0.034 ng/ml---Normal ?Note: Cardiac troponin begins to rise 3-4 hours after the onset of ischemia. Repeat in 4-6 hours if the sample was drawn within 3-4 hours of the onset of the symptom and found normal. Between 0.035 and 0.120 ng/mL--- Borderline. Questionable myocardial injury or necrosis ? ?Note: Serial measurement may be necessary to confirm or exclude the diagnosis of myocardial injury or necrosis; Clinical correlation (symptoms, EKGs, imaging studies, and others) required; Repeat in 4-6 hours if clinically indicated. ? Equal or Higher than 0.121 ng/mL---Abnormal. Myocardial Injury or Necrosis Likely ? Biotin has been reported to cause a negative bias, interpret results relative to patient's use of biotin. ? Lab Interpretation (test code = 68757-3) Normal [facility] ResourcesL[facility]ASE2020-12-25 02:37:00* Test Item Value Reference Range Interpretation Comme nts LIPASE (test code = 1164849830) 76 U/L 0-220 Lab Interpretation (test cod e = 36651-3) Normal [facility] ResourcesURINALYSIS2020-12-25 01:54:00* Test Item Value Reference Range Interpretation Comme nts APPEARANCE (test code = 8788573816) Clear Clear COLOR (test code = 5758400411) Straw Yellow A PH (test code = 7570209237) 4.8-8.0 SP GRAVITY (test code = 8709782132) 1.003-1.030 GLU U QUAL (test code = 4905690731) Normal Normal BLOOD (test code = 5887121421) 3+ Negative A KETONES (test code = 0914517723) Negative Negative PROTEIN (test code = 2887-8) Negative Negative UROBILIN (test code = 4705133472) Normal Normal BILIRUBIN (test code = 8001998588) Negative Negative NITRITE (test code = 1141617239) Negative Negative LEUK MARC (test code = 5161413629) Negative Negative RBC/HPF (test code = 8313750862) See_Comment [Automated [place] [employer]] The system which generated this result transmitted reference range: 0 - 3 HPF. The reference range was not used to interpret this result as normal/abnormal. WBC/HPF (test code = 1526566311) <1 See_Comment [Automated [place] [employer]] The system which generated this result transmitted reference range: 0 - 5 HPF. The reference range was not used to interpret this result as normal/abnormal. BACTERIA (test code = 3971538788) Few Negative A MUCOUS (test code = 2137363932) Slight Negative LPF A SQ EPITH (test code = 5253264591) HPF Lab Interpretation (test code = 18478-8) Abnormal [facility] WITH [id number] 00:57:00* Test Item Value Reference Range Interpretation Comme nts WBC (test code = 6690-2) See_Comment [Automated messa ge] The system which generated this result transmitted reference range: 4.30 - 11.10 10*3/?L. The reference range was not used to interpret this result as normal/abnormal. RBC (test code = 789-8) See_Comment [Automated messa ge] The system which generated this result transmitted reference range: 3.93 - 5.25 10*6/?L. The reference range was not used to interpret this result as normal/abnormal. HGB (test code = 718-7) 13.2 g/dL 11.6-15 HCT (test code = 4544-3) 38.8 % 35.7-45.2 MCV (test code = 787-2) 86.8 fL 80.6-95.5 MCH (test code = 785-6) 29.5 pg 25.9-32.8 MCHC (test code = 786-4) 34.0 g/dL 31.6-35.1 RDW-SD (test code = 29025-5) 41.7 fL 39-49.9 RDW-CV (test code = 788-0) 13.2 % 12-15.5 PLT (test code = 777-3) See_Comment [Automated [place] [employer]] The system which generated this result transmitted reference range: 166 - 358 10*3/?L. The reference range was not used to interpret this result as normal/abnormal. MPV (test code = 86037-7) 9.4 fL 9.5-12.9 L NRBC/100 WBC (test code = 0287131436) See_Comment [Automated [employer] ssage] The system which generated this result transmitted reference range: 0.0 - 10.0 /100 WBCs. The reference range was not used to interpret this result as normal/abnormal. NRBC x10^3 (test code = 1013283125) <0.01 See_Comment [Automated messa ge] The system which generated this result transmitted reference range: 10*3/?L. The reference range was not used to interpret this result as normal/abnormal. GRAN MAT (NEUT) % (test code = 770-8) 51.8 % IMM GRAN % (test code = 6341219041) 0.50 % LYMPH % (test code = 736-9) 40.7 % MONO % (test code = 5905-5) 4.0 % EOS % (test code = 713-8) 2.5 % BASO % (test code = 706-2) 0.5 % GRAN MAT x10^3(ANC) (test code = 2089250784) 5.38 10*3/uL 1.88-7.09 IMM GRAN x10^3 (test code = 2882796330) 0.05 10*3/uL 0-0.06 LYMPH x10^3 (test code = 731-0) 4.22 10*3/uL 1.32-3.29 H MONO x10^3 (test code = 742-7) 0.42 10*3/uL 0.33-0.92 EOS x10^3 (test code = 711-2) 0.26 10*3/uL 0.03-0.39 BASO x10^3 (test code = 704-7) 0.05 10*3/uL 0.01-0.07 Lab Interpretation (test code = 68446-2) Abnormal [facility] OR [facility] ONLY - INFLUENZA A & B DIRECT [id number] 00:51:00* Test Item Value Reference Range Interpretation Comme nts Influenza A (test code = 68565-1) Negative Negative Influenza B (test code = 18076-9) Negative Negative Lab Interpretation (test cod e = 17329-8) Normal [facility]PO[facility] [id number] 00:51:00* Test Item Value Reference Range Interpretation Comme nts POCT PREG (test code = 1605) negative On board controls acceptable with C Line (test code = 3574) present POCT PREG LOT # (test code = 3575) [id number] POCT PREG TEST DATE ( test code = 3576) 11/04/2021 Lab Interpretation (test cod e = 13738-4) Normal [facility] ResourcesTROPONIN [id number] 00:46:00* Test Item Value Reference Range Interpretation Comme nts TROPONIN I (test code = 0872388295) <0.012 See_Comment [Automated message] The system which generated this result transmitted reference range: <=0.034 ng/mL. The reference range was not used to interpret this result as normal/abnormal. DARWIN (test code = DARWIN) Equal or Less than 0.034 ng/ml---Normal ?Note: Cardiac troponin begins to rise 3-4 hours after the onset of ischemia. Repeat in 4-6 hours if the sample was drawn within 3-4 hours of the onset of the symptom and found normal. Between 0.035 and 0.120 ng/mL--- Borderline. Questionable myocardial injury or necrosis ? ?Note: Serial measurement may be necessary to confirm or exclude the diagnosis of myocardial injury or necrosis; Clinical correlation (symptoms, EKGs, imaging studies, and others) required; Repeat in 4-6 hours if clinically indicated. ? Equal or Higher than 0.121 ng/mL---Abnormal. Myocardial Injury or Necrosis Likely ? Biotin has been reported to cause a negative bias, interpret results relative to patient's use of biotin. ? Lab Interpretation (test code = 50994-1) Normal [facility] (NA, K, CL, CO2, GLUCOSE, BUN, CREATININE, CA)2020-07-01 00:46:00* Test Item Value Reference Range Interpretation Comme nts NA (test code = 5175351113) 141 mmol/L 135-145 K (test code = 8039925013) 3.8 mmol/L 3.5-5 CL (test code = 2135889362) 108 mmol/L 98-108 CO2 TOTAL (test code = 3701828294) 25 mmol/L 23-31 AGAP (test code = 1473123295) 2-16 BUN (test code = 5358000210) 10 mg/dL 7-23 GLUCOSE (test code = 0980285711) 92 mg/dL 70-110 CREATININE (test code = 2194867084) 0.58 mg/dL 0.5-1.04 CALCIUM (test code = 4201505625) 9.4 mg/dL 8.6-10.6 eGFR Calculation (Non-) (test code = 8740393868) mL/min/1.73m2 eGFR Calculation () (test code = 6933677974) mL/min/1.73m2 DARWIN (test code = DARWIN) Association of Glomerular Filtration Rate (GFR) and Staging of Kidney Disease* + -+ + ---+| GFR (mL/min/1.73 m2) ?| With Kidney Damage ?| ?Without Kidney Damage+ -------+ ------+ ---------+| ?>90 ?| ?Stage one ?| ? Normal ?+ --+ -+ ----+| ?60-89 ?| ?Stage two ?| ? Decreased GFR ? + -+ + ---+| ?30-59 ?| ?Stage three ?| ? Stage three ? + -+ + ---+| ?15-29 ?| ?Stage four ? | ? Stage four ?+ --+ -+ ----+| ?<15 (or dialysis) ? ?| ?Stage five ? | ? Stage five ?+ --+ -+ ----+ *Each stage assumes the associated GFR level has been in effect for at least three months. ?Stages 1 to 5, with or without kidney disease, indicate chronic kidney disease. Notes: Determination of stages one and two (with eGFR >59mL/min/1.73 m2) requires estimation of kidney damage for at least three months as defined by structural or functional abnormalities of the kidney, manifested by either:Pathological abnormalities or Markers of kidney damage (including abnormalities in the composition of the blood or urine or abnormalities in imaging tests). [facility] ResourcesN-TERMINAL [id number] 00:43:00* Test Item Value Reference Range Interpretation Comme nts NT-proBNP (test code = 0330963095) 332 pg/mL See_Comment H [Automated message] The system which generated this result transmitted reference range: <=125. The reference range was not used to interpret this result as normal/abnormal. DARWIN (test code = DARWIN) Biotin has been reported to cause a negative bias, interpret results relative to patient's use of biotin. Lab Interpretation (test code = 38867-7) Abnormal [facility] ResourcesXR CHEST 1 [id number] 00:20:50No acute cardiopulmonary abnormality Preliminary Report Dictated by Resident: Altaf Neal MD., have reviewed this study and agree with the abovereport.XR CHEST 1 VW HISTORY: 40years-old; Female; chest pain COMPARISON: Chest radiograph 06/12/2020 FINDINGS: The lungs are clear with no focal consolidation. Crowding of the vasculature is most likely related to poor inspiratoryeffort. There is no pleural effusion or pneumothorax.The cardiomediastinal silhouette is normal.No acute osseous abnormality is identified. [facility], Radiant Results Inft User - 06/30/2020 6:22 PM CSTXR CHEST 1 VWHISTORY: 40 years-old; Female; chest pain COMPARISON: Chest radiograph 06/12/2020FINDINGS: The lungs are clear with no focal consolidation.Crowding of the vasculature is most likely related to poor inspiratoryeffort. There is no pleural effusion or pneumothorax.The cardiomediastinal silhouette is normal.No acute osseous abnormality is identified.IMPRESSIONNo acute cardiopulmonary abnormalityPreliminary Report Dictated by Resident: Altaf Galvin MD., have reviewed this study and agree with the abovereport.[facility] ResourcesCT CERVICAL SPINE WO [id number] 23:23:[address] EXAMINATION: CT CERVICAL SPINE WO CONTRAST HISTORY: Radiculopathy COMPARISON: None available. TECHNIQUE: Routine unenhanced CT of the cervical spine. ? FINDINGS: Thereis straightening and shallow reversal of the normal cervicallordosis. The vertebral bodies are normal in height and alignment. No acutefracture or subluxation. Mild degenerative changes of the atlantoaxial joint. No overt spinalstenosis or high-grade neuroforaminal narrowing. The prevertebral soft tissues are unremarkable. Visualized lung apices are unremarkable. [facility], Radiant Results Inft User -06/28/2020 5:24 PM CSTEXAMINATION: CT CERVICAL SPINE WO CONTRASTHISTORY: Radiculopathy COMPARISON: None available. TECHNIQUE: Routine unenhanced CT of the cervical spine. FINDINGS:There is straightening and shallow reversal of the normal cervicallordosis. The vertebral bodies are normal in height and alignment. No acutefracture or subluxation. Mild degenerative changes of the atlantoaxial joint. No overt spinalstenosis or high-grade neuroforaminal narrowing.The prevertebral soft tissues are unremarkable.Visualized lung apices are unremarkable. IMPRESSIONUnremarkable cervical spine CT.[facility] ResourcesPOCT [id number] 01:50:00* Test Item Value Reference Range Interpretation Comme nts POCT PREG (test code = 1605) Negative On board controls acceptable with C Line (test code = 3574) Present POCT PREG LOT # (test code = 3575) [id number] POCT PREG TEST DATE ( test code = 3576) 10/05/2021 Lab Interpretation (test cod e = 88602-6) Normal [facility] ResourcesTroponin [id number] 01:24:00* Test Item Value Reference Range Interpretation Comme nts TROPONIN I (test code = 7746870797) <0.012 See_Comment [Automated message] The system which generated this result transmitted reference range: <=0.034 ng/mL. The reference range was not used to interpret this result as normal/abnormal. DARWIN (test code = DARWIN) Equal or Less than 0.034 ng/ml---Normal ?Note: Cardiac troponin begins to rise 3-4 hours after the onset of ischemia. Repeat in 4-6 hours if the sample was drawn within 3-4 hours of the onset of the symptom and found normal. Between 0.035 and 0.120 ng/mL--- Borderline. Questionable myocardial injury or necrosis ? ?Note: Serial measurement may be necessary to confirm or exclude the diagnosis of myocardial injury or necrosis; Clinical correlation (symptoms, EKGs, imaging studies, and others) required; Repeat in 4-6 hours if clinically indicated. ? Equal or Higher than 0.121 ng/mL---Abnormal. Myocardial Injury or Necrosis Likely ? Biotin has been reported to cause a negative bias, interpret results relative to patient's use of biotin. ? Lab Interpretation (test code = 08179-2) Normal [facility] ResourcesCOVID-19 (ID NOW RAPID TESTING)2020-06-13 01:22:00* Test Item Value Reference Range Interpretation Comme nts SARS-CoV-2 Rapid ID NOW (test code = 69343-6) Not Detected Not Detected DARWIN (test code = DARWIN) ID NOW COVID-19 As say is an isothermal nucleic acid amplification test intended for the qualitative detection of nucleic acid from SARS-CoV-2 viral RNA in nasopharyngeal ([employer]) specimens. It is used under Emergency Use Authorization (EUA) by FDA. The limit of detection (LOD) of the assay is 125 Genome Equivalents/mL. A positive result is indicative of the presence of SARS-CoV-2 RNA. ?Clinical correlation with patient history and other diagnostic information is necessary to determine patient infection status. A negative (Not Detected) result does not preclude SARS-CoV-2 infection. In patients with clinical symptoms and other tests that are consistent with SARS-CoV-2 infection, negative results should be treated as presumptive negative and a new specimen should be tested with alternative PCR molecular test. Invalid: Please collect a new specimen for repeat patient testing if clinically indicated. Lab Interpretation (test code = 97968-4) Normal [facility] ResourcesD-[id number] 01:16:00* Test Item Value Reference Range Interpretation Comments D-DIMER (test code = 2440507125) See_Comment [Automated message] The system which generated this result transmitted reference range: <0.41 ?g/mL (FEU). The reference range was not used to interpret this result as normal/abnormal. DARWIN (test code = DARWIN) This test may be used in conjunction with a clinical pretest probability (PTP) assessment model to exclude venous thromboembolism (VTE) in patients suspected of deep venous thrombosis (DVT) and pulmonary embolism (PE) A D-Dimer value less than 0.50 ?g/ml (FEU) has a negative predicative value of 96 to 100% (95% CI)and 97 to 100% (95% CI) as an aid in the diagnosis of deep vein thrombosis (DVT) and pulmonary embolism when there is low or moderate pretest probability of PE or DVT. D-Dimer values are expressed in initial fibrinogen equivalent units (FEU)" The assay results should be used with other information, including the clinical context, in forming a diagnosis. Lab Interpretation (test code = 91552-0) Normal [facility] ResourcesBasi Metabolic Panel (NA, K, CL, CO2, GLUCOSE, BUN, CREATININE, CA)2020-06-13 01:13:00* Test Item Value Reference Range Interpretation Comme nts NA (test code = 2447475045) 137 mmol/L 135-145 K (test code = 5265026169) 4.2 mmol/L 3.5-5 CL (test code = 5364539847) 103 mmol/L 98-108 CO2 TOTAL (test code = 3277005534) 25 mmol/L 23-31 AGAP (test code = 8510273788) 2-16 BUN (test code = 7326641251) 11 mg/dL 7-23 GLUCOSE (test code = 1930300902) 98 mg/dL 70-110 CREATININE (test code = 4344781718) 0.52 mg/dL 0.5-1.04 CALCIUM (test code = 8447805605) 10.3 mg/dL 8.6-10.6 eGFR Calculation (Non-) (test code = 2698516368) mL/min/1.73m2 eGFR Calculation () (test code = 4580184131) mL/min/1.73m2 DARWIN (test code = DARWIN) Association of Glomerular Filtration Rate (GFR) and Staging of Kidney Disease* + -+ + ---+| GFR (mL/min/1.73 m2) ?| With Kidney Damage ?| ?Without Kidney Damage+ -------+ ------+ ---------+| ?>90 ?| ?Stage one ?| ? Normal ?+ --+ -+ ----+| ?60-89 ?| ?Stage two ?| ? Decreased GFR ? + -+ + ---+| ?30-59 ?| ?Stage three ?| ? Stage three ? + -+ + ---+| ?15-29 ?| ?Stage four ? | ? Stage four ?+ --+ -+ ----+| ?<15 (or dialysis) ? ?| ?Stage five ? | ? Stage five ?+ --+ -+ ----+ *Each stage assumes the associated GFR level has been in effect for at least three months. ?Stages 1 to 5, with or without kidney disease, indicate chronic kidney disease. Notes: Determination of stages one and two (with eGFR >59mL/min/1.73 m2) requires estimation of kidney damage for at least three months as defined by structural or functional abnormalities of the kidney, manifested by either:Pathological abnormalities or Markers of kidney damage (including abnormalities in the composition of the blood or urine or abnormalities in imaging tests). [facility] ResourcesHepatic Function Panel (ALB, T.PRO, BILI T, BU/BC, ALT, AST, ALK PHOS)2020-06-13 01:13:00* Test Item Value Reference Range Interpretation Comme nts TOTAL BILI (test code = 1949145459) 0.5 mg/dL 0.1-1.1 BILI UNCON (test code = 7395936912) 0.3 mg/dL 0.1-1.1 BILI CONJ (test code = 4793062700) 0.0 mg/dL 0-0.3 T PROTEIN (test code = 0290842636) 7.3 g/dL 6.3-8.2 ALBUMIN (test code = 4911014316) 4.2 g/dL 3.5-5 ALK PHOS (test code = 1048539916) 85 U/L 34-122 ALTv (test code = 1742-6) 66 U/L 5-35 H AST(SGOT) (test code = 4229625808) 32 U/L 13-40 Lab Interpretation (test cod e = 20883-3) Abnormal [facility] ResourcesLipase [id number] 01:13:00* Test Item Value Reference Range Interpretation Comme nts LIPASE (test code = 8642308497) 60 U/L 0-220 Lab Interpretation (test cod e = 32702-4) Normal [facility] ResourcesUrinalysis2020-12-07 01:03:00* Test Item Value Reference Range Interpretation Comme nts APPEARANCE (test code = 5874401846) Clear Clear COLOR (test code = 1354527379) Straw Yellow A PH (test code = 2467823692) 4.8-8.0 SP GRAVITY (test code = 4885749366) 1.003-1.030 GLU U QUAL (test code = 8245478589) Normal Normal BLOOD (test code = 8505030823) Negative Negative KETONES (test code = 3761512202) Negative Negative PROTEIN (test code = 2887-8) Negative Negative UROBILIN (test code = 3135502126) Normal Normal BILIRUBIN (test code = 6331176542) Negative Negative NITRITE (test code = 2833029232) Negative Negative LEUK MARC (test code = 3742355067) Negative Negative RBC/HPF (test code = 7553596829) See_Comment [Automated messa ge] The system which generated this result transmitted reference range: 0 - 3 HPF. The reference range was not used to interpret this result as normal/abnormal. WBC/HPF (test code = 4979486646) See_Comment [Automated messa ge] The system which generated this result transmitted reference range: 0 - 5 HPF. The reference range was not used to interpret this result as normal/abnormal. BACTERIA (test code = 1325797531) Negative Negative MUCOUS (test code = 1265537450) Slight Negative LPF A SQ EPITH (test code = 0321509642) HPF Lab Interpretation (test code = 47479-8) Abnormal [facility] with Shxchrgtjqay6481-89-77 00:55:00* Test Item Value Reference Range Interpretation Comme nts WBC (test code = 6690-2) See_Comment H [Automated messa ge] The system which generated this result transmitted reference range: 4.30 - 11.10 10*3/?L. The reference range was not used to interpret this result as normal/abnormal. RBC (test code = 789-8) See_Comment [Automated messa ge] The system which generated this result transmitted reference range: 3.93 - 5.25 10*6/?L. The reference range was not used to interpret this result as normal/abnormal. HGB (test code = 718-7) 14.2 g/dL 11.6-15 HCT (test code = 4544-3) 41.1 % 35.7-45.2 MCV (test code = 787-2) 85.8 fL 80.6-95.5 MCH (test code = 785-6) 29.6 pg 25.9-32.8 MCHC (test code = 786-4) 34.5 g/dL 31.6-35.1 RDW-SD (test code = 06819-9) 42.5 fL 39-49.9 RDW-CV (test code = 788-0) 13.5 % 12-15.5 PLT (test code = 777-3) See_Comment [Automated messa ge] The system which generated this result transmitted reference range: 166 - 358 10*3/?L. The reference range was not used to interpret this result as normal/abnormal. MPV (test code = 92010-5) 10.1 fL 9.5-12.9 NRBC/100 WBC (test code = 2817623620) See_Comment [Automated me ssage] The system which generated this result transmitted reference range: 0.0 - 10.0 /100 WBCs. The reference range was not used to interpret this result as normal/abnormal. NRBC x10^3 (test code = 8895277755) <0.01 See_Comment [Automated messa ge] The system which generated this result transmitted reference range: 10*3/?L. The reference range was not used to interpret this result as normal/abnormal. GRAN MAT (NEUT) % (test code = 770-8) 61.9 % IMM GRAN % (test code = 5612704523) 0.60 % LYMPH % (test code = 736-9) 30.6 % MONO % (test code = 5905-5) 5.2 % EOS % (test code = 713-8) 1.4 % BASO % (test code = 706-2) 0.3 % GRAN MAT x10^3(ANC) (test code = 7658500207) 8.03 10*3/uL 1.88-7.09 H IMM GRAN x10^3 (test code = 0592560163) 0.08 10*3/uL 0-0.06 H LYMPH x10^3 (test code = 731-0) 3.97 10*3/uL 1.32-3.29 H MONO x10^3 (test code = 742-7) 0.68 10*3/uL 0.33-0.92 EOS x10^3 (test code = 711-2) 0.18 10*3/uL 0.03-0.39 BASO x10^3 (test code = 704-7) 0.04 10*3/uL 0.01-0.07 Lab Interpretation (test code = 11486-2) Abnormal [facility] ResourcesCOVID[facility] (ID NOW RAPID TESTING)2020-05-17 00:27:00* Test Item Value Reference Range Interpretation Comme nts SARS-CoV-2 Rapid ID NOW (test code = 56619-8) Not Detected Not Detected DARWIN (test code = DARWIN) ID NOW COVID-19 As say is an isothermal nucleic acid amplification test intended for the qualitative detection of nucleic acid from SARS-CoV-2 viral RNA in nasopharyngeal ([employer]) specimens. It is used under Emergency Use Authorization (EUA) by FDA. The limit of detection (LOD) of the assay is 125 Genome Equivalents/mL. A positive result is indicative of the presence of SARS-CoV-2 RNA. ?Clinical correlation with patient history and other diagnostic information is necessary to determine patient infection status. A negative (Not Detected) result does not preclude SARS-CoV-2 infection. In patients with clinical symptoms and other tests that are consistent with SARS-CoV-2 infection, negative results should be treated as presumptive negative and a new specimen should be tested with alternative PCR molecular test. Invalid: Please collect a new specimen for repeat patient testing if clinically indicated. Lab Interpretation (test code = 39556-6) Normal [facility] Metabolic Panel (NA, K, CL, CO2, GLUCOSE, BUN, CREATININE, CA)2020-05-17 00:00:00* Test Item Value Reference Range Interpretation Comme nts NA (test code = 4865759892) 136 mmol/L 135-145 K (test code = 5218246128) 3.6 mmol/L 3.5-5 CL (test code = 7920421248) 103 mmol/L 98-108 CO2 TOTAL (test code = 8333350041) 26 mmol/L 23-31 AGAP (test code = 1932312185) 2-16 BUN (test code = 4998141224) 13 mg/dL 7-23 GLUCOSE (test code = 3536907822) 130 mg/dL 70-110 H CREATININE (test code = 6671796432) 0.58 mg/dL 0.5-1.04 CALCIUM (test code = 0130445981) 9.9 mg/dL 8.6-10.6 eGFR Calculation (Non-) (test code = 6692680437) mL/min/1.73m2 eGFR Calculation () (test code = 2676686951) mL/min/1.73m2 DARWIN (test code = DARWIN) Association of Glomerular Filtration Rate (GFR) and Staging of Kidney Disease* + --+ --+ ------+| GFR (mL/min/1.73 m2) ?| With Kidney Damage ?| ?Without Kidney Damage+ --------+ --------+ +| ?>90 ?| ?Stage one ?| ? Normal ?+ ---+ ---+ -------+| ?60-89 ?| ?Stage two ?| ? Decreased GFR ? + --+ --+ ------+| ?30-59 ?| ?Stage three ?| ? Stage three ? + --+ --+ ------+| ?15-29 ?| ?Stage four ? | ? Stage four ?+ ---+ ---+ -------+| ?<15 (or dialysis) ? ?| ?Stage five ? | ? Stage five ?+ ---+ ---+ -------+ *Each stage assumes the associated GFR level has been in effect for at least three months. ?Stages 1 to 5, with or without kidney disease, indicate chronic kidney disease. Notes: Determination of stages one and two (with eGFR >59mL/min/1.73 m2) requires estimation of kidney damage for at least three months as defined by structural or functional abnormalities of the kidney, manifested by either:Pathological abnormalities or Markers of kidney damage (including abnormalities in the composition of the blood or urine or abnormalities in imaging tests). Lab Interpretation (test code = 50662-1) Abnormal [facility] ResourcesHep[facility] Function Panel (ALB, T.PRO, BILI T, BU/BC, ALT, AST, ALK PHOS)2020-05-17 00:00:00* Test Item Value Reference Range Interpretation Comme nts TOTAL BILI (test code = 9826338328) 0.4 mg/dL 0.1-1.1 BILI UNCON (test code = 9184006847) 0.3 mg/dL 0.1-1.1 BILI CONJ (test code = 7768420098) 0.0 mg/dL 0-0.3 T PROTEIN (test code = 9119870262) 7.3 g/dL 6.3-8.2 ALBUMIN (test code = 2738258211) 4.3 g/dL 3.5-5 ALK PHOS (test code = 7945739070) 118 U/L 34-122 ALTv (test code = 1742-6) 119 U/L 5-35 H AST(SGOT) (test code = 7728377345) 47 U/L 13-40 H Lab Interpretation (test cod e = 70170-7) Abnormal [facility] Pjwis9798-65-08 00:00:00* Test Item Value Reference Range Interpretation Comme nts LIPASE (test code = 1316265448) 70 U/L 0-220 Lab Interpretation (test cod e = 94291-6) Normal [facility] with Zmhxplmiwskf4693-74-81 23:49:00* Test Item Value Reference Range Interpretation Comme nts WBC (test code = 6690-2) See_Comment [Automated messa ge] The system which generated this result transmitted reference range: 4.30 - 11.10 10*3/?L. The reference range was not used to interpret this result as normal/abnormal. RBC (test code = 789-8) See_Comment [Automated messa ge] The system which generated this result transmitted reference range: 3.93 - 5.25 10*6/?L. The reference range was not used to interpret this result as normal/abnormal. HGB (test code = 718-7) 14.1 g/dL 11.6-15 HCT (test code = 4544-3) 42.3 % 35.7-45.2 MCV (test code = 787-2) 86.9 fL 80.6-95.5 MCH (test code = 785-6) 29.0 pg 25.9-32.8 MCHC (test code = 786-4) 33.3 g/dL 31.6-35.1 RDW-SD (test code = 76525-8) 42.8 fL 39-49.9 RDW-CV (test code = 788-0) 13.5 % 12-15.5 PLT (test code = 777-3) See_Comment [Automated messa ge] The system which generated this result transmitted reference range: 166 - 358 10*3/?L. The reference range was not used to interpret this result as normal/abnormal. MPV (test code = 47376-1) 9.8 fL 9.5-12.9 NRBC/100 WBC (test code = 4025487663) See_Comment [Automated me ssage] The system which generated this result transmitted reference range: 0.0 - 10.0 /100 WBCs. The reference range was not used to interpret this result as normal/abnormal. NRBC x10^3 (test code = 6657676096) <0.01 See_Comment [Automated me ssage] The system which generated this result transmitted reference range: 10*3/?L. The reference range was not used to interpret this result as normal/abnormal. GRAN MAT (NEUT) % (test code = 770-8) 62.5 % IMM GRAN % (test code = 2939639377) 0.50 % LYMPH % (test code = 736-9) 29.8 % MONO % (test code = 5905-5) 5.6 % EOS % (test code = 713-8) 1.1 % BASO % (test code = 706-2) 0.5 % GRAN MAT x10^3(ANC) (test code = 7677509983) 6.65 10*3/uL 1.88-7.09 IMM GRAN x10^3 (test code = 4573641023) 0.05 10*3/uL 0-0.06 LYMPH x10^3 (test code = 731-0) 3.17 10*3/uL 1.32-3.29 MONO x10^3 (test code = 742-7) 0.59 10*3/uL 0.33-0.92 EOS x10^3 (test code = 711-2) 0.12 10*3/uL 0.03-0.39 BASO x10^3 (test code = 704-7) 0.05 10*3/uL 0.01-0.07 [facility] ResourcesACETAMINOPHEN2020-11-08 08:24:00* Test Item Value Reference Range Interpretation Comme nts ACETAMINOP (test code = 3025996631) 21.0 ug/mL 10-30 DARWIN (test code = DARWIN) Toxic: Greater joan n 200 ug/mL @ 4 hour post ingestion or greater than 50 ug/mL @ 12 hour post ingestion Lab Interpretation (test code = 76669-1) Normal [facility] ResourcesETHANOL2020-11-08 06:37:00* Test Item Value Reference Range Interpretation Comme nts ALCOHOL (test code = 7438700497) <10 mg/dL DARWIN (test code = DARWIN) <10 [id number] Toxic>100 Depression of PRACTICAL NURSE>400 Fatalities Reported [facility] (NA, K, CL, CO2, GLUCOSE, BUN, CREATININE, CA)2020-05-15 06:35:00* Test Item Value Reference Range Interpretation Comme nts NA (test code = 9938597650) 137 mmol/L 135-145 K (test code = 4326251740) 4.0 mmol/L 3.5-5 CL (test code = 6304919258) 106 mmol/L 98-108 CO2 TOTAL (test code = 9331592785) 25 mmol/L 23-31 AGAP (test code = 7027389323) 2-16 BUN (test code = 7947825223) 9 mg/dL 7-23 GLUCOSE (test code = 7345750468) 95 mg/dL 70-110 CREATININE (test code = 8119368401) 0.53 mg/dL 0.5-1.04 CALCIUM (test code = 4490815029) 9.0 mg/dL 8.6-10.6 eGFR Calculation (Non-) (test code = 1458946888) mL/min/1.73m2 eGFR Calculation () (test code = 6632713377) mL/min/1.73m2 DARWIN (test code = DARWIN) Association of Glomerular Filtration Rate (GFR) and Staging of Kidney Disease* + -+ + ---+| GFR (mL/min/1.73 m2) ?| With Kidney Damage ?| ?Without Kidney Damage+ -------+ ------+ ---------+| ?>90 ?| ?Stage one ?| ? Normal ?+ --+ -+ ----+| ?60-89 ?| ?Stage two ?| ? Decreased GFR ? + -+ + ---+| ?30-59 ?| ?Stage three ?| ? Stage three ? + -+ + ---+| ?15-29 ?| ?Stage four ? | ? Stage four ?+ --+ -+ ----+| ?<15 (or dialysis) ? ?| ?Stage five ? | ? Stage five ?+ --+ -+ ----+ *Each stage assumes the associated GFR level has been in effect for at least three months. ?Stages 1 to 5, with or without kidney disease, indicate chronic kidney disease. Notes: Determination of stages one and two (with eGFR >59mL/min/1.73 m2) requires estimation of kidney damage for at least three months as defined by structural or functional abnormalities of the kidney, manifested by either:Pathological abnormalities or Markers of kidney damage (including abnormalities in the composition of the blood or urine or abnormalities in imaging tests). [facility] ResourcesHepatic Function Panel (ALB, T.PRO, BILI T, BU/BC, ALT, AST, ALK PHOS)2020-05-15 06:35:00* Test Item Value Reference Range Interpretation Comme nts TOTAL BILI (test code = 6432307191) 0.4 mg/dL 0.1-1.1 BILI UNCON (test code = 0777775030) 0.2 mg/dL 0.1-1.1 BILI CONJ (test code = 5644437550) 0.0 mg/dL 0-0.3 T PROTEIN (test code = 4794106633) 6.3 g/dL 6.3-8.2 ALBUMIN (test code = 7316102741) 3.8 g/dL 3.5-5 ALK PHOS (test code = 4783610850) 117 U/L 34-122 ALTv (test code = 1742-6) 179 U/L 5-35 H AST(SGOT) (test code = 9493220782) 194 U/L 13-40 H Lab Interpretation (test cod e = 56249-0) Abnormal [facility] ResourcesLip[facility] Eqgbg2486-34-34 06:35:00* Test Item Value Reference Range Interpretation Comme nts LIPASE (test code = 3225969391) 92 U/L 0-220 Lab Interpretation (test cod e = 08120-0) Normal [facility] ResourcesaPTT2020-11-08 06:22:00* Test Item Value Reference Range Interpretation Comme nts APTT Patient (test code = 3173-2) See_Comment [Automated message] The system which generated this result transmitted reference range: 23 - 38 Seconds. The reference range was not used to interpret this result as normal/abnormal. DARWIN (test code = DARWIN) The [facility] patient population mean normal value for aPTT is 30 seconds. Lab Interpretation (test code = 74141-6) Normal [facility] ResourcesUrinalysis2020-11-08 06:21:00* Test Item Value Reference Range Interpretation Comme nts APPEARANCE (test code = 2483238183) Clear Clear COLOR (test code = 7386646427) Yellow Yellow PH (test code = 8681968238) 4.8-8.0 SP GRAVITY (test code = 4881809428) 1.003-1.030 GLU U QUAL (test code = 7905892790) Normal Normal BLOOD (test code = 4636854154) Negative Negative KETONES (test code = 5532858681) Negative Negative PROTEIN (test code = 2887-8) Negative Negative UROBILIN (test code = 5385641987) Normal Normal BILIRUBIN (test code = 2880567510) Negative Negative NITRITE (test code = 5095116113) Negative Negative LEUK MARC (test code = 4395642743) Negative Negative RBC/HPF (test code = 1468009461) See_Comment [Automated [place] [employer] ge] The system which generated this result transmitted reference range: 0 - 3 HPF. The reference range was not used to interpret this result as normal/abnormal. WBC/HPF (test code = 5213328690) <1 See_Comment [Automated [place] [employer] ge] The system which generated this result transmitted reference range: 0 - 5 HPF. The reference range was not used to interpret this result as normal/abnormal. BACTERIA (test code = 3185726835) Negative Negative MUCOUS (test code = 7600481707) Slight Negative LPF A SQ EPITH (test code = 4242705111) HPF Lab Interpretation (test code = 11185-5) Abnormal [facility] ResourcesProthrombin Time (PT) / [id number] 06:20:00 * Test Item Value Reference Range Interpretation Comme nts PROTIME PATIENT (test code = 5964-2) See_Comment [Automated [place] [employer]] The system which generated this result transmitted reference range: 12.0 - 14.7 Seconds. The reference range was not used to interpret this result as normal/abnormal. INR (test code = 6301-6) Normal INR <1.1; Warfarin Therapeutic range 2.0 to 3.0 or 2.5 to 3.5, depending upon the indications. Lab Interpretation (test code = 48189-4) Normal [facility] - DRUG SCREEN KZFZDQ1622-65-65 06:19:00* Test Item Value Reference Range Interpretation Comme nts BENZO U (test code = 4837148322) Presumptive Positive Negative A ROSA U (test code = 1370083267) Negative Negative AMPHET (test code = 4415012850) Negative Negative THC (test code = 1928974003) Negative Negative METHADONE (test code = 5131826539) Negative Negative Meth U (test code = 3545447386) Negative Negative OPIATES (test code = 4817954713) Negative Negative Cocaine Metabolite (test code = 5842360263) Negative Negative PROPOXY (test code = 8241536289) Negative Negative Tric U (test code = 8508848366) Negative Negative PCP (test code = 8444352011) Negative Negative OXYCOD (test code = 9894289804) Negative Negative DARWIN (test code = DARWIN) Urine Drug Cutoff Ranges Benzodiazepines: ? ? 150 ng/mLBarbiturates: ?200 ng/mLAmphetamine: ? 500 ng/mLCannabinoids: ?50 ?ng/mLMethadone: ? 200 ng/mLMethamphetamine: ? ? 500 ng/mL Opiates: ? 100 ng/mL or 2000 ng/mLCocaine: ? 150 ng/mLPropoxyphene: ?300 ng/mLTricyclics: ?300 ng/mLOxycodone: ? 100 ng/mLPCP: ? 25 ?ng/mL The results are to be used only for medical (i.e., treatment) purposes. Unconfirmed screening results must not be used for non-medical purposes (e.g., employment testing, legal testing). Lab Interpretation (test code = 59674-2) Abnormal [facility] with Rjufwbtsujbj6661-84-62 06:07:00* Test Item Value Reference Range Interpretation Comme nts WBC (test code = 6690-2) See_Comment [Automated [place] ge] The system which generated this result transmitted reference range: 4.30 - 11.10 10*3/?L. The reference range was not used to interpret this result as normal/abnormal. RBC (test code = 789-8) See_Comment [Automated messa ge] The system which generated this result transmitted reference range: 3.93 - 5.25 10*6/?L. The reference range was not used to interpret this result as normal/abnormal. HGB (test code = 718-7) 13.2 g/dL 11.6-15 HCT (test code = 4544-3) 38.5 % 35.7-45.2 MCV (test code = 787-2) 86.7 fL 80.6-95.5 MCH (test code = 785-6) 29.7 pg 25.9-32.8 MCHC (test code = 786-4) 34.3 g/dL 31.6-35.1 RDW-SD (test code = 09350-0) 43.4 fL 39-49.9 RDW-CV (test code = 788-0) 13.7 % 12-15.5 PLT (test code = 777-3) See_Comment [Automated [place] ge] The system which generated this result transmitted reference range: 166 - 358 10*3/?L. The reference range was not used to interpret this result as normal/abnormal. MPV (test code = 44396-5) 9.7 fL 9.5-12.9 NRBC/100 WBC (test code = 7340722905) See_Comment [Automated [employer] ssage] The system which generated this result transmitted reference range: 0.0 - 10.0 /100 WBCs. The reference range was not used to interpret this result as normal/abnormal. NRBC x10^3 (test code = 4662987389) <0.01 See_Comment [Automated messa ge] The system which generated this result transmitted reference range: 10*3/?L. The reference range was not used to interpret this result as normal/abnormal. GRAN MAT (NEUT) % (test code = 770-8) 50.6 % IMM GRAN % (test code = 5949560501) 0.20 % LYMPH % (test code = 736-9) 42.1 % MONO % (test code = 5905-5) 5.5 % EOS % (test code = 713-8) 1.2 % BASO % (test code = 706-2) 0.4 % GRAN MAT x10^3(ANC) (test code = 7858958089) 4.31 10*3/uL 1.88-7.09 IMM GRAN x10^3 (test code = 5019042716) <0.03 0-0.06 LYMPH x10^3 (test code = 731-0) 3.58 10*3/uL 1.32-3.29 H MONO x10^3 (test code = 742-7) 0.47 10*3/uL 0.33-0.92 EOS x10^3 (test code = 711-2) 0.10 10*3/uL 0.03-0.39 BASO x10^3 (test code = 704-7) 0.03 10*3/uL 0.01-0.07 Lab Interpretation (test code = 84294-9) Abnormal [facility]POCT Orqf8351-65-37 05:53:00* Test Item Value Reference Range Interpretation Comme nts POCT PREG (test code = 1605) Negative On board controls acceptable with C Line (test code = 3574) Present POCT PREG LOT # (test code = 3575) HCG [id number] POCT PREG TEST DATE ( test code = 3576) 10/05/2021 Lab Interpretation (test cod e = 85756-7) Normal [facility] History and Physical Notes Date/Time Note Provider Source 2023-02-16 01:18:50 [id number]:18:50F ormatting of this note is different from the original.Medicine History & PhysicalDate of Service: 3Pt presents from: homeCC: abd painHistory of Present Illness:Charity Roca is a 42 year old female with a PMH of PTSD, anxiety who presented to the ED for abdominal pain. Symptom onset was 3 days ago. For the past 3 days, she's experienced severe 8-9/10 RLQ abdominal pain. Described as stabbing. Does not radiate. Assoiated symptoms are chills, night sweats, diarrhea. Her diarrhea though is chronic, since a 2003 cholecystectomy. ROS: 2 days of chest painReview of Hx/Meds:No current facility-administered medications on file prior to encounter. Current Outpatient Medications on File Prior to Encounter Medication Sig Dispense Refill ALPRAZOLAM ORAL Take 2 mg by mouth in the morning and 2 mg in the evening. melatonin 10 mg Tab Take 1 tablet by mouth at bedtime. trazodone HCl (TRAZODONE ORAL) Take 400 mg by mouth at bedtime. hydrOXYzine 50 mg tablet Take 1 tablet by mouth every 8 (eight) hours as needed for Anxiety. 16 tablet 0 methocarbamoL (ROBAXIN) 500 mg tablet Take 1 tablet by mouth every 6 (six) hours as needed for Pain (scale 7-10) (MUSCLE SPASM). (Patient taking differently: Take 1.5 tablets by mouth every 6 (six) hours as needed for Pain (scale 7-10) (MUSCLE SPASM).) 20 tablet 0 traMADoL (ULTRAM) 50 mg tablet Take 1 tablet by mouth every 6 (six) hours as needed for Pain (scale 7-10). Indications: acute pain 20 tablet 0 bupropion HCl (WELLBUTRIN ORAL) Take 150 mg by mouth every morning. escitalopram oxalate (LEXAPRO) 5 mg tablet Take 2 tablets by mouth at bedtime. OLANZapine (ZYPREXA) 15 mg tablet Take 1 tablet by mouth every evening. topiramate (TOPAMAX) 200 mg tablet Take 1 tablet by mouth every evening. I have reviewed the patient's home medicationsPMH: Past Medical History: Diagnosis Date Anxiety Hypertension PTSD (post-traumatic stress disorder) of family members. PSH: has a past surgical history that includes cholecystectomy and tonsillectomy. Family Hx: Social History Tobacco Use Smoking status: Every Day Types: Cigarettes Smokeless tobacco: Current Tobacco comments: In the process of quitting. Now smokes 5 cigarettes/ day from 2 packs per day Current Scheduled Medications Current IV Current Facility-Administered Medications: ALPRAZolam (XANAX) tablet 2 mg, 2 mg, Oral, TIDPRN, Flako Mercado MD buPROPion XL (WELLBUTRIN XL) tablet 150 mg, 150 mg, Oral, DAILY, Flako Mercado MD melatonin (MELATIN) tablet 9 mg, 9 mg, Oral, QHS, Flako Mercado MD methocarbamoL (ROBAXIN) tablet 500 mg, 500 mg, Oral, Q6HPRN, Flako Mercado MD OLANZapine (ZyPREXA) tablet 15 mg, 15 mg, Oral, QPM, Flako Mercado MD traZODone (DESYREL) tablet 400 mg, 400 mg, Oral, QHS, Flako Mercado MD acetaminophen (TYLENOL) tablet 1,000 mg, 1,000 mg, Oral, Q6HPRN, Flako Mercado MD enoxaparin (LOVENOX) injection 40 mg, 40 mg, Subcutaneous, DAILY, Flako Mercado MD lactated ringers IV infusion 1,000 mL, 1,000 mL, IV Infusion, CONTINUOUS, Flako Mercado MD, Last Rate: 100 mL/hr at 02/15/23 2247, 1,000 mL at 02/15/23 2247 morpHINE (2 mg/mL) injection 2 mg, 2 mg, Slow IV Push, Q4HPRN, Flako Mercado MD, 2 mg at 02/15/23 2240 traMADoL (ULTRAM) tablet 50 mg, 50 mg, Oral, Q8HPRN, Flako Mercado MDObjective:Vitals:Vitals: 02/15/23 1911 02/15/23200802/15/23201502/15/232018 BP: 105/67 122/70 Pulse: 72 66 Resp: 21 18 Temp: 36.1 ?C (96.9 ?F) TempSrc: SpO2: 95% 98% Weight: 99 kg (218 lb 3.2 oz) 99 kg (218 lb 3.2 oz) 99 kg (218 lb 3.2 oz) Height: 1.575 m (5' 2") 1.575 m (5' 2") 1.575 m (5' 2") I/O's:Intake/Output Summary (Last 24 hours) at 02/16/2023 0119Last data filed at 02/15/2023 2009Gross per 24 hour Intake 0 ml Output -- Net 0 ml Physical Exam:Constitutional: A&O x3, well-developed, well-nourished, and in no distress. Head: Normocephalic and atraumatic. Eyes: PERRL. Conjunctivae and EOM are normal. Neck: Normal range of motion. Neck supple. No JVD present.Cardiovascular: Normal rate, regular rhythm, normal heart sounds Pulmonary/Chest: Effort normal and breath sounds normal. No respiratory distress. No wheezes, rales or rhonchi. Abdominal: Soft. Bowel sounds are normal. No TTP, non-distended and no masses. No rebound or guarding. Musculoskeletal: Normal range of motion. No edema or tenderness. Lymphadenopathy: No cervical adenopathy. Neurological: A&O x3. No focal deficits. Gait normal. Skin: Skin is warm and dry. No rash noted. No erythema. No pallor. Labs:BMP:BMP NA Date Value 02/15/2023 138 mmol/L 01/09/2022 142 mmol/L 12/13/2021 141 mmol/L 11/11/2021 140 mmol/L 09/11/2021 137 mmol/L 07/23/2004 140 MMOL/L K Date Value 02/15/2023 3.7 mmol/L 01/09/2022 3.3 mmol/L (L) 12/13/2021 3.6 mmol/L 11/11/2021 4.0 mmol/L 09/11/2021 3.9 mmol/L 07/23/2004 3.9 MMOL/L CALCIUM Date Value 02/15/2023 9.0 mg/dL 01/09/2022 9.2 mg/dL 12/13/2021 9.8 mg/dL 11/11/2021 9.3 mg/dL 09/11/2021 8.8 mg/dL 07/23/2004 9.5 MG/DL CL Date Value 02/15/2023 105 mmol/L 01/09/2022 109 mmol/L (H) 12/13/2021 111 mmol/L (H) 11/11/2021 111 mmol/L (H) 09/11/2021 109 mmol/L (H) 07/23/2004 106 MMOL/L BUN Date Value 02/15/2023 6 mg/dL (L) 01/09/2022 9 mg/dL 12/13/2021 15 mg/dL 11/11/2021 9 mg/dL 09/11/2021 10 mg/dL 07/23/2004 6 MG/DL (L) CREATININE Date Value 02/15/2023 0.77 mg/dL 01/09/2022 0.69 mg/dL 12/13/2021 1.05 mg/dL (H) 11/11/2021 0.72 mg/dL 09/11/2021 0.80 mg/dL 07/23/2004 0.77 MG/DL GLUCOSE Date Value 02/15/2023 92 mg/dL 01/09/2022 116 mg/dL (H) 12/13/2021 113 mg/dL (H) 11/11/2021 105 mg/dL 09/11/2021 101 mg/dL 07/23/2004 119 MG/DL (H) CO2 TOTAL Date Value 02/15/2023 23 mmol/L 01/09/2022 22 mmol/L (L) 12/13/2021 19 mmol/L (L) 11/11/2021 17 mmol/L (L) 09/11/2021 19 mmol/L (L) 07/23/2004 24 MMOL/L CBC:CBCWBC x10^3 (/CMM) Date Value 07/23/2004 11.4 (H) WBC (10*3/?L) Date Value 02/15/2023 12.24 (H) RBC x10^6 (/CMM) Date Value 07/23/2004 5.22 (H) RBC (10*6/?L) Date Value 02/15/2023 5.37 (H) PLT x10^3 (/CMM) Date Value 07/23/2004 301 PLT (10*3/?L) Date Value 02/15/2023 331 HGB Date Value 02/15/2023 15.0 g/dL 07/23/2004 14.9 G/DL HCT (%) Date Value 02/15/2023 43.3 07/23/2004 43.1 BMP:Hepatic Function PanelALBUMIN Date Value 02/15/2023 4.0 g/dL 07/23/2004 4.3 G/DL T PROTEIN Date Value 02/15/2023 7.5 g/dL 07/23/2004 7.2 G/DL TOTAL BILI Date Value 02/15/2023 0.7 mg/dL 07/23/2004 0.2 MG/DL BILI UNCON Date Value 12/10/2020 0.3 mg/dL 07/23/2004 0.2 MG/DL BILI CONJ Date Value 12/10/2020 0.0 mg/dL 07/23/2004 0.0 MG/DL ALT(SGPT) (U/L) Date Value 07/23/2004 26 ALTv (U/L) Date Value 02/15/2023 25 AST(SGOT) (U/L) Date Value 02/15/2023 36 07/23/2004 20 ALK PHOS (U/L) Date Value 02/15/2023 101 07/23/2004 74 Troponin: There are no current results on file for these tests and/or test for 1 year. I have reviewed all relevant labsImaging:CT ABDOMEN PELVIS W CONTRASTResult Date: 02/15/2023T ABDOMEN PELVIS W CONTRAST Indication: Pancreatitis, acute, severe Comparison: September 11, 2021 RL: Ordering Clinician: LEEANNE WISE Technique: Axial CT images of the abdomen and pelvis were performed with iv contrast. Sagittal and coronal reformats were created. Dose reduction techniques were used (ALARA). Technical Quality: Adequate Discussion: Lines/Devices: None. Chest/Vessels: No acute abnormalities within the lung bases. The aorta is acutely normal. Organs: No acute liver pathology. Cholecystectomy clips.r The portal vein is patent. The pancreas is normal. No splenic masses. 1.9 cm left adrenal nodule nonspecific and 34 Hounsfield units unchanged. : No hydronephrosis. No renal stones. The ureters are normal. The bladder is normal. Anteverted uterus. GI: No inflammation of the colon. No small bowel obstruction. Normal appendix. Additional Findings: Subcentimeter lymph nodes are below size criteria. No free air or free fluid. Skeleton: No acute osseous pathology. Impression: No acute abnormalities. Nonspecific unchanged left adrenal nodule. Adrenal Lesion Recommendations: Benign Features 1-4cm: Current recommendations for incidentally detected adrenal mass 1-4cm in a patient with no prior history of malignancy and benign imaging features(homogenous, smooth margins, no evidence of necrosis), presume the lesion is benign and consider 12 month follow up with CT or MR. If stable for 1 year, no additional follow up recommended. (Managing Incidental Findings on Abdominal CT: White Paper of the ACR Incidental Findings Committee;Journal of the [place] [employer] Volume 7, Issue 10, Pages 860-413, April 2010). XR CHEST 1 VWResult Date: 02/15/2023ORDERING PHYSICIAN: LEEANNE WISE HISTORY: chest pain . TECHNIQUE: A portable upright AP view chest x-ray. COMPARISON: The chest x-ray from November 11, 2021. FINDINGS: No focal infiltrate, pleural effusion, or pneumothorax is identified. The cardiomediastinal silhouette and central vessels appear unremarkable. No acute bony abnormality is identified. 1. No acute process is identified in the chest. RL: 8518 END OF REPORT Assessment and plan:Principal Problem: Chest pain, unspecified typeSivon Roca is a 42 year old female with a PMH of PTSD, anxiety who presented to the ED for abdominal pain. Found to have acute pancreatitis. Pancreatitis, AcuteConsider drug induced, patient Is on a couple of home meds (topamax, bupropion) which have been associated. S/p cholecystectomy. Afebrile. CT abdomen neg for any major pathology. Lipase 2048 -pain control w PRN tylenol/tramadol/morphine-contin ue maintenance IVFAnxietyPTSDMental disorder, NOSPatient is on a wide range of medications .-resumed xanax BID, but made PRN. Hold home PRN vistaril-wellbutrin 150 daily-lexapro 10qHS, substitute per hospital formulary-melatonin 10qHS, trazodone 400mg qHS (verified by nursing)-hold topamax-zyprexa 15mg qHS DVT prophylaxis: lovenox Advanced Care Planning ( Z71.89 )Above assessment and plan discussed at length with patient, patient expressed full understanding. Questions and concerns addressed I spent 18 minutes discussing the advance care planning.Advanced Directive Maker: selfLevel of comfort: N/ACode Status: fullTobacco user (Z71.6)Patient counseled at length and Pt expressed full understanding, Time discussed 3 minutesDisposition: admit to inpt Signed:Flako Mercado MD02/16/2023 95468-2Cgqrgis and physical kcyhAN4042-03-53R08:24:58History and physical [id number] .[id number] e for patient pqix92047-0Lgbcdaq and physical noteLNIM-INTERNAL MEDICINE STAFF-INTERNAL MEDICINE STAFF[address] Gi[id number] 7270KSALLSONFNBTYWVUHVNQVO1100-6 8-12T01:24:581.2.840.722636.1.72 .3.15|1.2.840.922792.1.13.104.2. [id number] IM-INTERNAL MEDICINE STAFF [facility] Notes Date/Time Note Provider Source 2023-12-13 09:19:27 7190-85-45G02:19:27 Chief [facility]Patient [facility]23 for chest pains. She had a stent placed [place] [address]-7Muquv AssoSI0450-84-12D60:19:46Nurse NoteTXT1.2.840.795107.1.13.131.2.7. 2.651836|[id number] for patient ymmo94777-0Gaqcl NoteLNNARRATIVEFormatted C-CDA narrative [id number] Hurst MA [facility] [facility].KCXUMOCCHXRYHPUDCC2521736768OX NX5111-72-40F66:19:461.2.840.021140 .1.72.3.15|1.2.840.113084.1.13.131. 2.7.2.727879_[id number] Jennifer Dick CHUY MEEKS [facility] 2023-12-03 10:49:31 0318-14-50I76:49:31 Chief ComplaintPatient presents withAnxietyFollow up on anxiety/depression. She states that it has gotten worse since last visit. She had an appointment with January this morning and it was canceled due to [place] [address]-5Yzgvr NwftYI3697-52-82O93:49:48Nurse NoteTXT1.2.840.321141.1.13.131.2.7. 2.820023|[id number] for patient kpkq17957-6Trtqd NoteLNNARRATIVEFormatted C-CDA narrative [id number] Hurst MA IICAROMONT [facility] CENTERDARLENESum[facility]2727 [facility].[id number] FO7808-72-87G22:49:481.2.840.814375 .1.72.3.15|1.2.840.721285.1.13.131. 2.7.2.727879_[id number] Jennifer Kapil CHUY MEEKS [facility] 2023-10-29 13:21:02 0146-82-71N66:21:02 Chief ComplaintPatient [facility] to a different doctor because they could not give her anything elseJAVON KhanN 97125-5Uxpjd SnbnOZ3063-95-30X16:21:18Nurse NoteTXT1.2.840.855824.1.13.131.2.7. 2.567100|[id number] for patient oamz67941-1Jstco NoteLNNARRATIVEFormatted C-CDA narrative [facility]2727 [facility].[id number] GW6999-69-72P49:21:181.2.840.121920 .1.72.3.15|1.2.840.385729.1.13.131. 2.7.2.727879_[id number] [facility] 2023-10-11 00:41:45 2514-79-64V69:41:45 Pt given printed and verbal discharge instructions regarding dysuria, & abd pain, encouraged hydration.Prescriptions provided.Discussed tramadol side affects and to avoid driving/operating machinery/or engaging in activities requiring alertness while taking.Pt verbalized understanding of instructions, pt awake alert oriented, resp reg unlabored, skin w/d, color appropriate for race, moves all ext well,pt encouraged to follow up with pcp.Advised to seek medical attention for new/prolonged/worsening of symptoms.No adverse reaction to meds given in ER noted upon discharge.PIV d'cd, dressing to site, catheter in tact.Awake, alert oriented, resp reg unlabored, skin w/d, pt leaving amb with steady gait, accompanied by parent, & in no apparent distress. 95985-8Ovbtoxfav department OnsyTZ7968-86-20N70:43:03Emergen department NoteTXT1.2.840.487663.1.13.104.2.7. 2.417786|[id number] for patient ussu16642-6JtubIZVVGKOHCAVErlimmlyk C-CDA narrative [id number] L Chuck RAMIREZ[id number] 0NOGDCKWSZZTTTCLFKBHTLI4849-72-56Z8 0:43:031.2.840.326850.1.72.3.15|1.2 .840.883334.1.13.104.2.7.2.727879_2 [id number] Becky Pinedo Chuck RAMIREZ [facility] 2023-10-10 21:25:46 3838-66-24Q17:25:46 Pt arrived ambulatory but states feeling like she is going to pass out, Pt placed in ED wheelchair. Pt c/o " I have pain in my back on the left side, it mark when I pee, Im nauseous, I feel like Im going to pass out and I have been crapping on myself." 02433-3Mbkhuwiuf department Triage ysklTU7485-52-50X00:27:38[facility] department Triage noteTXT1.2.840.336542.1.13.104.2.7. 2.101621|[id number] for patient hflz71010-1Dwoejrymw department NoteLNNARRATIVEFormatted C-CDA narrative [id number] Atkinson RN[id number] 8KNNHTJLDNMWWOICNCCERQB8411-42-08I4 1:27:381.2.840.548921.1.72.3.15|1.2 .840.410631.1.13.104.2.7.2.727879_2 [id number] Shaneka Atkinson RN [facility] 2023-07-01 22:58:41 8084-04-21N52:58:41 Pt discharged with diagnosis of RUQ abd pain and chronic abd pain. Printed and verbal instructions reviewed with and given to pt. Prescriptions given x 2. Pt verbalized understanding of teaching, medications, and recommended follow-up. Denies questions or concerns at this time. Pt ambulatory at discharge. Appears in no apparent distress. No ataxia noted. 70041-4Mhtzsxgjo department QtniZI4108-12-80D31:59:30[facility] NoteTXT1.2.840.851401.1.13.104.2.7. 2.087103|[id number] for patient ttqq57693-9NcluYQLHAMVQJLOZsxlgyegs C-CDA narrative [id number] R Goodrich [id number] 4KMLEOSUJHVSMEYGETNDQYI2629-90-34J4 2:59:301.2.840.920878.1.72.3.15|1.2 .840.642851.1.13.104.2.7.2.727879_1 [id number] Adeline Floyd RN [facility] 2023-07-01 19:46:03 7894-23-82D34:46:03 Pt states sharp pain to the RLQ that started today around noon, pt denies any urinary symptoms, vomiting X 2 36952-1Klccrtqre department Triage xdyzAP3686-00-03O27:47:04[facility] Triage noteTXT1.2.840.827011.1.13.104.2.7. 2.658659|[id number] for patient nbpy84673-4Zykjjgwjp[address] NoteLNNARRATIVEFormatted C-CDA narrative [id number] J Hoot RNUTMB[id number] 9DGKFPSGAJQKBRAOHUHSVKS9761-36-98V3 9:47:041.2.840.115795.1.72.3.15|1.2 .840.855037.1.13.104.2.7.2.727879_1 [id number] Razia Yost RN [facility] 2023-03-10 00:14:00 6316-16-05I00:14:00 Awake, alert oriented X4, respiratory even and unlabored,skin w/d color appropriate for race, moves all ext well, pt encouraged to follow up with pcp and or return as neededPt given printed and verbal discharge instructions regarding Abdominal pain , patient verbralized understanding and signature obtained, patient denies any other concerns. Prescriptions providedAdvised to seek medical attention for new/prolonged/worsening of symptoms, No adverse reaction to meds given in ER noted upon dischargePt [facility] 84451-5Bcbjfmbvm department VuqmDO1435-04-62M70:01:17Emergen department NoteTXT1.2.840.939794.1.13.104.2.7. 2.471855|[id number] for patient gpvr48982-0BondAC446035497Menlic J Hoot RN[id number] 6MZAAPSYUJVDLKWQTVSFDZG7338-88-93X3 1:01:171.2.840.906428.1.72.3.15|1.2 .840.802977.1.13.104.2.7.2.727879_1 [id number] Razia Yost RN [facility] 2023-03-09 23:06:10 3925-30-14O97:06:10 Received report from Evy RAMIREZ, assuming care. 79160-3Spgdfqdbx department HyzbJD5950-85-77R31:06:31[facility] department NoteTXT1.2.840.110031.1.13.104.2.7. 2.638806|[id number] for patient tnks94272-3KvyjQJ179104424Hlwci A. Campbell RN[id number] 0TOKMSNYSLHWAXIUBOZTNCB8744-03-82Q8 3:06:311.2.840.579434.1.72.3.15|1.2 .840.239081.1.13.104.2.7.2.727879_1 [id number] Brandy Lou RN [facility] 2023-03-09 22:38:16 8344-13-08Q85:38:[address] scan done. Patient states LQ abdominal pain now 01/14. 64116-1Knrtcbfzm department VnafUE7638-98-95E14:38:54[facility] department NoteTXT1.2.840.617393.1.13.104.2.7. 2.272421|[id number] for patient chru13423-8ZjyaWH229793928Yimmbcv M Owens RN[id number] 4NXLKFITJJPKMQAZQVSEYUD2862-33-25B3 2:38:541.2.840.604996.1.72.3.15|1.2 .840.931320.1.13.104.2.7.2.727879_1 [id number] Guanaco Caceres RN [facility] 2023-03-09 22:00:00 8330-30-96Z46:00:00 POCT test negative. Patient states RLQ abdominal pain improved briefly with IV Morphine administration, then returned at 03/17. Dr Richards informed, and patient medicated as ordered with Fentanyl 75 mcg [place]P. [address]-4Uffwftqtf[address] [place]ysTN[address]-76-91L02:09:19[facility] NoteTXT1.2.840.822603.1.13.104.2.7. 2.531795|[id number] for patient cpms55810-2TolhDUKHFOJOQT[id number] 0HNTKHXMMXQHVFQJGCAQNVI3308-27-01C3 2:09:191.2.840.859725.1.72.3.15|1.2 .840.466455.1.13.104.2.7.2.727879_1 [id number] [facility] 2023-03-09 21:00:00 2712-27-25X83:00:00 Medicated as per order with Zofran 4 mg slow IVP and Morphine 4 mg slow IVP for RLQ abdominal pain 03/17. [address]-5Opayipvka[address] PgbrUC1216-78-46C12:07:24[facility] NoteTXT1.2.840.088797.1.13.104.2.7. 2.274887|[id number] for patient bgug48607-2RthgURIVOWAUAJ13 [id number] 8RWRFNSNXVWCJLISOQXGDHM5371-60-18Q3 2:07:241.2.840.863205.1.72.3.15|1.2 .840.466035.1.13.104.2.7.2.727879_1 [id number] [facility] 2023-03-09 20:17:52 9878-67-18X72:17:52 Pt arrived ambulatory with complaints of RLQ abd pain since yesterday. Pt reports N/V/D. Last took Tylenol at 3pm. Denies dysuria but reports frequency. Hx: Anxiety, Depression, PTSD, Pancreatitis 21227-3Qvgorcool department Triage kjpcQE1738-93-59B31:20:20[facility] department Triage noteTXT1.2.840.004774.1.13.104.2.7. 2.589019|[id number] for patient lngv23661-7Ptikrpdmf department [id number] D Roman RN[id number] 8SMRSCROKAJJNBBPAZAYLEZ2353-78-51W0 0:20:201.2.840.234026.1.72.3.15|1.2 .840.483513.1.13.104.2.7.2.727879_1 [id number] Aline Lou RN [facility] 2023-03-02 01:30:22 8232-09-65R30:30:22 Discharged home ambulatory. Home instructions given. 50447-8Avdswgszk department FujrLZ4599-41-07A31:30:41[facility] NoteTXT1.2.840.803092.1.13.104.2.7. 2.000899|[id number] for patient iixy40845-8EexfCJ398259100Hlioyq R Quimoyog RNUT[address] [id number] 7SAKIQLYUAQDYHEWJZMVZQQ0727-38-10Q7 1:30:411.2.840.056519.1.72.3.15|1.2 .840.121436.1.13.104.2.7.2.727879_1 [id number] Jonh Ventura RN [facility] 2023-03-01 19:32:44 1316-21-21H11:32:44 Pt CO of N/V, left lower back pain, painful urination and diarrhea since yesterday, states she was admitted last week for pancreatitis. Pt already promethazine tablets today with no relief. 88113-9Fnctmthai department Triage wpbmQQ0039-29-23K28:34:10[facility] department Triage noteTXT1.2.840.355783.1.13.104.2.7. 2.300866|[id number] for patient vdfj62799-7Cpdfiqrdj department MghbIZ597416374Zemtmyqp R Moss RN[address] Om[id number] 8GQJFVVXBFLPUHKVEZMUBUM4004-49-71H9 9:34:101.2.840.044263.1.72.3.15|1.2 .840.958006.1.13.104.2.7.2.727879_1 [id number] Jean Carlos Alegria RN [facility] 2023-03-01 19:22:00 3475-12-39V24:22:00 [facility] Emergency Department NotePatient Name: Charity James of : 1980 43 year old femaleTreatment Room: TX3/MX6Fubiqju Record Number: [id number] Care Physician: Carlos SolanoPatient Escorted by: Family [5]Mode of Arrival: Personal means [1]EMS Treatment Prior to ED Arrival:SPINNER CAP FRAME treatment: None Travel and Exposure Screening:SymptomsDoes patient have any of these symptoms?: (not recorded)Exposure ScreeningHas patient had contact with someone with a communicable disease in the last month?: (not recorded)Diseases exposed to:: (not recorded)Is Patient ?: (not recorded)Exposure Date: (not recorded)Chief Complaint:Chief Complaint Patient presents with Abdominal Pain History of Present Illness:Charity Roca is a 43 year old femaleh who presents to the ED for evaluation of N/V/D and RLQ pain that began yesterday. Pt has vomited about 6 times yesterday and about 4 times today. Vomitus consists of digested food materials and yellowish stomach contents. No hematemesis. Has had about 15 watery stools yesterday and about 15 times again today. No travel hx. No recent use of abx. No sick contacts. No exposure to bad food. 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 Abdominal PainPain location: GeneralizedPain quality: cramping Pain severity: ModerateOnset quality: GradualDuration: 2 daysTiming: IntermittentChronicity: NewContext: not alcohol use, not awakening from sleep, not diet changes, not eating, not laxative use, not medication withdrawal, not previous surgeries, not recent illness, not recent travel, not retching, not sick contacts, not suspicious food intake and not trauma Relieved by: NothingWorsened by: NothingAssociated symptoms: diarrhea, nausea and vomiting Associated symptoms: no anorexia, no belching, no chest pain, no chills, no constipation, no cough, no dysuria, no fatigue, no fever, no flatus, no hematemesis, no hematochezia, no hematuria, no melena, no shortness of breath, no sore throat, no vaginal bleeding and no vaginal discharge Risk factors: no aspirin use, not elderly, no NSAID use and no recent hospitalization Past Medical History/Immunizations:Past Medical History: Diagnosis Date Anxiety Hypertension PTSD (post-traumatic stress disorder) of family members. Tetanus received in last 5 years: Yes Allergies:No Known AllergiesPast Social History:Tobacco Use Every Day; Types: Cigarettes Smokeless Tobacco: Current user of smokeless tobacco. Comments: In the process of quitting. Now smokes 5 cigarettes/ day from 2 packs per day Past Surgical History:Past Surgical History: Procedure Laterality Date CHOLECYSTECTOMY TONSILLECTOMY Review of Systems: Review of Systems Constitutional: Negative. Negative for chills, fatigue and fever. HENT: Negative. Negative for sore throat. Eyes: Negative. Respiratory: Negative. Negative for cough and shortness of breath. Breasts: Negative. Cardiovascular: Negative. Negative for chest pain. Gastrointestinal: Positive for abdominal pain, diarrhea, nausea and vomiting. Negative for abdominal distention, anal bleeding, anorexia, blood in stool, constipation, flatus, hematemesis, hematochezia, melena and rectal pain. Genitourinary: Negative. Negative for dysuria, hematuria, vaginal bleeding and vaginal discharge. Musculoskeletal: Negative. Skin: Negative. Neurological: Negative. Psychiatric/Behavioral: Negative. All other systems reviewed and are negative.Endocrine: Endocrine negativePhysical Exam: ED Triage Vitals [03/01/231933] Weight 99.8 kg (220 lb) Actual or estimated Actual Height 1.575 m (5' 2") BP (!) 147/101 Pulse 85 Resp 18 Temp 37.3 ?C (99.1 ?F) Temp source Oral SpO2 100 % Measured on Room air Physical ExamVitals and nursing note reviewed. Constitutional: General: She is not in acute distress. Appearance: Normal appearance. She is well-developed and normal weight. She is not ill-appearing, toxic-appearing or diaphoretic. HENT: Head: Normocephalic and atraumatic. Right Ear: External ear normal. Left Ear: External ear normal. Nose: Nose normal. Mouth/Throat: Mouth: Mucous membranes are moist. Pharynx: Oropharynx is clear. No oropharyngeal exudate or posterior oropharyngeal erythema. Eyes: General: No scleral icterus. Right eye: No discharge. Left eye: No discharge. Extraocular Movements: Extraocular movements intact. Conjunctiva/sclera: Conjunctivae normal. Pupils: Pupils are equal, round, and reactive to light. Neck: Thyroid: No thyromegaly. Cardiovascular: Rate and Rhythm: Normal rate and regular rhythm. Pulses: Normal pulses. Heart sounds: Normal heart sounds. No murmur heard.Pulmonary: Effort: Pulmonary effort is normal. No respiratory distress. Breath sounds: Normal breath sounds. No stridor. No wheezing, rhonchi or rales. Chest: Chest wall: No tenderness. Abdominal: General: Bowel sounds are normal. There is no distension. Palpations: Abdomen is soft. Tenderness: There is no abdominal tenderness. There is no right CVA tenderness, left CVA tenderness, guarding or rebound. Hernia: No hernia is present. Musculoskeletal: General: No swelling, tenderness or deformity. Normal range of motion. Cervical back: Normal range of motion and neck supple. No rigidity. Lymphadenopathy: Cervical: No cervical adenopathy. Skin: General: Skin is warm and dry. Capillary Refill: Capillary refill takes less than 2 seconds. Coloration: Skin is not jaundiced or pale. Findings: No bruising, erythema, lesion or rash. Neurological: General: No focal deficit present. Mental Status: She is alert and oriented to person, place, and time. Cranial Nerves: No cranial nerve deficit. Sensory: No sensory deficit. Motor: No weakness or abnormal muscle tone. Coordination: Coordination normal. Gait: Gait normal. Deep Tendon Reflexes: Reflexes normal. Psychiatric: Behavior: Behavior normal. Thought Content: Thought content normal. Judgment: Judgment normal. Radiology:CT ABDOMEN PELVIS W CONTRAST Final Result Ordering physician: OLIVIA GARCIA Indication: Acute abdominal pain COMPARISON: CT of the abdomen and pelvis dated 02/15/2023 TECHNIQUE: Axial images of the abdomen and pelvis are performed following administration of intravenous contrast material. Images were reformatted in the coronal and sagittal plane. CT scan was performed according to ALARA (as low as reasonably achievable) policy. FINDINGS: The lung bases are clear. The patient is status post cholecystectomy. The liver, spleen, right adrenal gland and pancreas are within normal limits. There is a 2.6 cm left adrenal nodule, indeterminate by density (series 2, image 33). The kidneys are normal in appearance bilaterally without hydronephrosis. No abdominal aortic aneurysm or dissection is appreciated. There is no free fluid in the pelvis. There are small follicles in the left ovary. There is no bowel obstruction, widespread diverticulosis or acute diverticulitis. The appendix is identified and within normal limits. Bone windows through the abdomen and pelvis demonstrate no osseous destructive lesion. IMPRESSION No acute process identified in the abdomen or pelvis. Stable 2.6 cm left adrenal nodule, indeterminate by density on the current exam. However, CT report of 01/12/2021 states that this is consistent with an adenoma on noncontrast imaging. RL: 460 [facility]: [id number] Lab Results:Lab Results CBC WITH DIFF - Abnormal Result Value Ref Range WBC 11.91 (*) 4.30 - 11.10 10*3/?L RBC 4.87 3.93 - 5.25 10*6/?L HGB 13.7 11.6 - 15.0 g/dL HCT 39.4 35.7 - 45.2 % MCV 80.9 80.6 - 95.5 fL MCH 28.1 25.9 - 32.8 pg MCHC 34.8 31.6 - 35.1 g/dL RDW-SD 41.2 39.0 - 49.9 fL RDW-CV 14.1 12.0 - 15.5 % PLT 379 (*) 166 - 358 10*3/?L MPV 9.7 9.5 - 12.9 fL NRBC/100 WBC 0.0 0.0 - 10.0 /100 WBCs NRBC x10^3 <0.01 10*3/?L GRAN MAT (NEUT) % 65.6 % IMM GRAN % 0.30 % LYMPH % 27.7 % MONO % 4.4 % EOS % 1.7 % BASO % 0.3 % GRAN MAT x10^3(ANC) 7.81 (*) 1.88 - 7.09 10*3/uL IMM GRAN x10^3 0.04 0.00 - 0.06 10*3/uL LYMPH x10^3 3.30 (*) 1.32 - 3.29 10*3/uL MONO x10^3 0.52 0.33 - 0.92 10*3/uL EOS x10^3 0.20 0.03 - 0.39 10*3/uL BASO x10^3 0.04 0.01 - 0.07 10*3/uL URINALYSIS - Abnormal APPEARANCE Hazy (*) Clear COLOR Yellow Yellow PH 5.0 4.8 - 8.0 SP GRAVITY 1.021 1.003 - 1.030 GLU U QUAL Normal Normal BLOOD Negative Negative KETONES Negative Negative PROTEIN Negative Negative UROBILIN Normal Normal BILIRUBIN Negative Negative NITRITE Negative Negative LEUK MARC Negative Negative RBC/HPF 1 0 - 3 HPF WBC/HPF 1 0 - 5 HPF BACTERIA Few (*) Negative MUCOUS Marked (*) Negative LPF SQ EPITH 6 HPF HYAL CAST 2 <=2 LPF LIPASE - Normal LIPASE 98 0 - 220 U/L POCT TEST - Normal POCT PREG Negative On board controls acceptable with C Line Yes POCT PREG LOT # [id number] POCT PREG TEST DATE COMP. METABOLIC PANEL (76684) NA 139 135 - 145 mmol/L K 3.6 3.5 - 5.0 mmol/L CL 107 98 - 108 mmol/L CO2 TOTAL 23 23 - 31 mmol/L AGAP 9 2 - 16 BUN 9 7 - 23 mg/dL GLUCOSE 96 70 - 110 mg/dL CREATININE 0.58 0.50 - 1.04 mg/dL TOTAL BILI 0.2 0.1 - 1.1 mg/dL CALCIUM 9.0 8.6 - 10.6 mg/dL T PROTEIN 6.9 6.3 - 8.2 g/dL ALBUMIN 3.9 3.5 - 5.0 g/dL ALK PHOS 69 34 - 122 U/L ALTv 18 5 - 35 U/L AST(SGOT) 25 13 - 40 U/L eGFR 112.9 mL/min/1.73m2 Orders and Treatments:Orders Placed This Encounter Procedures CT ABDOMEN PELVIS W CONTRAST CBC WITH DIFF COMP. METABOLIC PANEL (46973) LIPASE URINALYSIS POCT TEST Orders Placed This Encounter Medications ketorolac (TORADOL) injection 30 mg NaCl 0.9% (NS) IV infusion 1,000 mL ondansetron (ZOFRAN (PF)) injection 4 mg morpHINE (4 mg/mL) injection 4 mg ondansetron (ZOFRAN (PF)) injection 4 mg iopamidol (ISOVUE 370-500 mL) injection 100 mL dicyclomine 20 mg tablet ondansetron (ZOFRAN) 4 mg tablet First Provider Eval:ED Events Date/Time Event User Comments 03/01/232299 Medical Screening Begins OLIVIA GARCIA MD -- 03/01/232299 First Provider Evaluation OLIVIA GARCIA MD -- No notes of EC Admission Criteria type on file.ED COURSEDiagnosis/Impression as of 03/02/23 0122 Generalized abdominal pain Nausea, vomiting and diarrhea Procedures: ProceduresMDM:Medical Decision MakingRikafernanda Roca is a 43 year old female who presents to the ED with N/V/D X 2 days and diffuse abdominal crampsProblems Addressed:Generalized abdominal pain: acute illness or injury Details: ED evaluation, laboratory and imaging study results as documented in chartNausea, vomiting and diarrhea: acute illness or injury Details: ED evaluation ad management as documented in chartAmount and/or Complexity of Data ReviewedExternal Data Reviewed: notes.Labs: ordered. Decision-making details documented in ED Course.Radiology: ordered. Decision-making details documented in ED Course.RiskOTC drugs.Prescription drug management.Parenteral controlled substances. Flowsheet Documentation: Scoring Tools: No data recorded Disposition/Condition:ED Disposition ED Disposition Disch - Home Condition Stable Comment -- Discharge Medications:Patient's Medications START taking these medications DICYCLOMINE 20 MG TABLET Take 1 tablet by mouth every 6 (six) hours as needed for Abdominal pain. ONDANSETRON (ZOFRAN) 4 MG TABLET Take 1 tablet by mouth every 8 (eight) hours as needed for Nausea and Vomiting (N/V). CONTINUE taking these medications which have NOT CHANGED ALPRAZOLAM ORAL Take 2 mg by mouth in the morning and 2 mg in the evening. BUPROPION HCL (WELLBUTRIN ORAL) Take 150 mg by mouth every morning. ESCITALOPRAM OXALATE (LEXAPRO) 5 MG TABLET Take 2 tablets by mouth at bedtime. HYDROXYZINE 50 MG TABLET Take 1 tablet by mouth every 8 (eight) hours as needed for Anxiety. MELATONIN 10 MG TAB Take 1 tablet by mouth at bedtime. METHOCARBAMOL (ROBAXIN) 500 MG TABLET Take 1 tablet by mouth every 6 (six) hours as needed for Pain (scale 7-10) (MUSCLE SPASM). OLANZAPINE (ZYPREXA) 15 MG TABLET Take 1 tablet by mouth every evening. PROMETHAZINE 25 MG TABLET Take 1 tablet by mouth every 6 (six) hours as needed for Nausea and Vomiting (N/V). TOPIRAMATE (TOPAMAX) 200 MG TABLET Take 1 tablet by mouth every evening. TRAMADOL (ULTRAM) 50 MG TABLET Take 1 tablet by mouth every 6 (six) hours as needed for Pain (scale 7-10). Indications: acute pain TRAZODONE HCL (TRAZODONE ORAL) Take 400 mg by mouth at bedtime. START taking Modified Medications as Prescribed No medications on file STOP taking these medications No medications on file Follow-up:Electronically signed by: Olivia Garcia MD03/02/23 0122 52271-5Fewgdszbn Emergency department ZvaiVP2081-23-31H14:22:19[facility] NoteTXT1.2.840.167341.1.13.104.2.7. 2.674542|[id number] for patient jqgs92823-3Ejpfevmgy department Note[id number] 4KYCFOERQBPSBDXOXHPYQLW0933-71-01R2 1:22:191.2.840.951129.1.72.3.15|1.2 .840.114316.1.13.104.2.7.2.727879_1 [id number] [facility] 2023-02-18 02:22:03 7618-02-09J32:22:03 Pt given printed and verbal discharge instructions regarding pancreatitis, encouraged hydration,Discussed ibuprofen and to take with food to avoid GI distress, alternate with Tylenol to help with pain and/or feverPt verbalized understanding of instructions,pt encouraged to follow up with pcp and or GiAdvised to seek medical attention for new/prolonged/worsening of symptoms,No adverse reaction to meds given in ER noted upon dischargePIV d'cd, dressing to site, catheter in tact.Awake, alert oriented, resp reg unlabored, skin w/d, pt ambulated from ED, leaving in no apparent distress, 65549-8Lfxlsxyzt department LafjNO3945-19-60S29:22:35[facility] department NoteTXT1.2.840.781565.1.13.104.2.7. 2.980086|[id number] for patient [id number] E Linkes RNUT[id number] 1KQQQSIEQVYKCTQWDTYZJFE0301-20-48T0 2:22:351.2.840.833645.1.72.3.15|1.2 .840.502691.1.13.104.2.7.2.727879_1 [id number] Linda Acosta Ernestothea JAMES [facility] 2023-02-17 22:53:36 8835-44-85Y75:53:36 Pt arrived ambulatory with complaints of vomiting and diarrhea that started soon after she was dc'd home from the hospital today. Pt was hospitalized for pancreatitis. Pt reports vomiting more than 5 times and having numerous episodes of diarrhea since 6pm. Pt states all shes had since coming home is water and 1 coke. Pt denies being prescribed any antiemetics Pt also reporting RLQ pain and chest tightness which she thinks might be from her anxiety. 62382-8Ybiakumrz department Triage mukjJC0383-94-32P97:56:52[facility] Triage noteTXT1.2.840.882470.1.13.104.2.7. 2.728147|[id number] for patient uaeb24440-2Jlqpcobqi department [id number] D Roman RNUT[id number] 2GQDWCVQBAKBNMXASHGRMUD2800-14-41Y2 2:56:521.2.840.141586.1.72.3.15|1.2 .840.353081.1.13.104.2.7.2.727879_1 [id number] Aline Lou RN [facility] 2023-02-17 15:59:15 6738-99-92M63:59:15 Problem: PainGoal: Control of pain at or below patient's documented comfort goalOutcome: Adequate for dischargeGoal: Reduction in pain sensationOutcome: Adequate for discharge Problem: Venous Thromboembolism, (actual or risk of)Goal: Absence of venous thromboembolism (Risk)Outcome: Adequate for discharge Problem: Skin integrity Impaired (Risk or Actual)Goal: Wound healingOutcome: Adequate for dischargeGoal: Prevention of new skin breakdownOutcome: Adequate for discharge Problem: Discharge PlanningGoal: Adequate for dischargeOutcome: Adequate for dischargeGoal: Effective communicationOutcome: Adequate for discharge 89253-7Qzqf of care nucyIO2629-84-54P53:59:19Plan of care noteTXT1.2.840.368334.1.13.104.2.7. 2.868176|[id number] for patient gvnl16923-8KbjmWQ001407451Ymtnzwj Roye RN[id number] 1ROHIOBCSCVWLOPRCRCKFTJ0320-98-46W9 5:59:191.2.840.117727.1.72.3.15|1.2 .840.160957.1.13.104.2.7.2.727879_1 [id number] Beata Lamar RN [facility] 2023-02-17 00:21:19 5525-13-72W35:21:19 Problem: PainGoal: Control of pain at or below patient's documented comfort goalOutcome: Progressing as expectedGoal: Reduction in pain sensationOutcome: Progressing as expected Problem: Venous Thromboembolism, (actual or risk of)Goal: Absence of venous thromboembolism (Risk)Outcome: Progressing as expected Problem: Skin integrity Impaired (Risk or Actual)Goal: Wound healingOutcome: Progressing as expectedGoal: Prevention of new skin breakdownOutcome: Progressing as expected Problem: Discharge PlanningGoal: Adequate for dischargeOutcome: Progressing as expectedGoal: Effective communicationOutcome: Progressing as expected 32374-7Jmvc of care iryzOF0179-21-05D56:21:23Plan of care noteTXT1.2.840.442752.1.13.104.2.7. 2.314649|[id number] for patient hflw00421-8YfhbLMVYHRGEKZ13 [id number] 5DCEFDQGSKNLEXCYGNMDTLC1740-17-76F5 0:21:231.2.840.096149.1.72.3.15|1.2 .840.874895.1.13.104.2.7.2.727879_1 [id number] [facility] 2023-02-16 16:55:55 3226-40-72O20:55:55 Problem: PainGoal: Control of pain at or below patient's documented comfort goalOutcome: Progressing as expectedGoal: Reduction in pain sensationOutcome: Progressing as expected Problem: Venous Thromboembolism, (actual or risk of)Goal: Absence of venous thromboembolism (Risk)Outcome: Progressing as expected Problem: Skin integrity Impaired (Risk or Actual)Goal: Wound healingOutcome: Progressing as expectedGoal: Prevention of new skin breakdownOutcome: Progressing as expected Problem: Discharge PlanningGoal: Adequate for dischargeOutcome: Progressing as expectedGoal: Effective communicationOutcome: Progressing as expected 67693-7Scva of care wcwvZJ0170-60-13W02:55:58Plan of care noteTXT1.2.840.830677.1.13.104.2.7. 2.012124|[id number] for patient tcpr43341-9NpenPLAESTFJVO13 [id number] 9GSGZEEHVWVOLJKHHDHXXOI1082-04-46A5 6:55:581.2.840.166394.1.72.3.15|1.2 .840.514318.1.13.104.2.7.2.727879_1 [id number] [facility] 2023-02-16 03:35:03 9467-59-79X91:35:03 Problem: PainGoal: Control of pain at or below patient's documented comfort goalOutcome: Progressing as expectedGoal: Reduction in pain sensationOutcome: Progressing as expected Problem: Venous Thromboembolism, (actual or risk of)Goal: Absence of venous thromboembolism (Risk)Outcome: Progressing as expected Problem: Skin integrity Impaired (Risk or Actual)Goal: Wound healingOutcome: Progressing as expectedGoal: Prevention of new skin breakdownOutcome: Progressing as expected Problem: Discharge PlanningGoal: Adequate for dischargeOutcome: Progressing as expectedGoal: Effective communicationOutcome: Progressing as expected 38110-9Ldmd of care fgmvUN2168-27-17T20:35:13Plan of care noteTXT1.2.840.955068.1.13.104.2.7. 2.037247|[id number] for patient wynm75197-8EhjjSAWJQFALCK[address] Ki[id number] 0GSHEXISBHMEWBXKOORTDHT8674-53-59C7 3:35:131.2.840.406055.1.72.3.15|1.2 .840.450715.1.13.104.2.7.2.727879_1 [id number] [facility] 2023-02-15 19:41:18 8804-16-73G67:41:18 Nurse Report Report given to JAMES Gatica. Chief complaint, assessment findings, infusion verify and orders reviewed. Plan of care discussed [place] [address]-5Xyedmqpek department AqifES0191-78-86E66:41:48[facility] department NoteTXT1.2.840.755857.1.13.104.2.7. 2.313194|[id number] for patient [id number] M Donovan RAMIREZUT[id number] 4YEIKTDSFIFCQNFZTWMZUNW7658-68-30I0 9:41:481.2.840.190996.1.72.3.15|1.2 .840.190809.1.13.104.2.7.2.727879_1 [id number] Stacie Ayala Donovan RN [facility] 2023-02-15 13:40:01 1063-95-73B91:40:01 CC: patient presents to the ER with complaints of chest wall pain to the middle left chest with radiation to the left shoulder that began last night. Patient also states she is having LRQ abdominal pain that began 3 days ago. States she has taken tylenol without relief. PMHx: see historyAwake, alert, oriented, resp reg unlabored, skin warm and dry, color appropriate for race, moves all ext without difficulty, amb without assistance. Appears in no distress. 15616-4Uvpwzpgju department Triage udliFD8456-43-36J60:41:27[facility] department Triage noteTXT1.2.840.542909.1.13.104.2.7. 2.228365|[id number] for patient ajeg37227-2Lgehwuczx department Note[id number] 5TIOLAINNAAMKPXELSJASOL9418-16-96M9 3:41:271.2.840.548938.1.72.3.15|1.2 .840.965292.1.13.104.2.7.2.727879_1 [id number] [facility] 2023-02-15 13:23:00 1057-61-18L32:23:00Associated Order(s): EKG-12 Lead ROUTINE ONCEPre-Procedure Diagnose(s): Chest pain, unspecified typePost-Procedure Diagnose(s): Acute pancreatitis, unspecified complication status, unspecified pancreatitis type [facility] Emergency Department NotePatient Name: Charity RocaDate of : 1980 42 year old femaleTreatment Room: [place] [address]Medical Record Number: [id number] Care Physician: Carlos Man Escorted by: Self [9]Mode of Arrival: Personal means [1]EMS Treatment Prior to ED Arrival:SPINNER CAP FRAME treatment: None Chief Complaint:Chief Complaint Patient presents with Chest wall pain History of Present Illness:Charity Roca is a 42 year old female who presents to the ED with complaint of anterior chest pain described as sharp , sudden onset last night . No aggravating or alleviating factors, no SOB, no fever, no cough., no vomiting or sweats. Taken tylenol without relief History provided by: PatientChesreggie PainPain location: L lateral chestPain quality: burning and stabbing Pain radiates to: L shoulderPain severity: ModerateOnset quality: SuddenDuration: 12 hoursTiming: ConstantProgression: UnchangedChronicity: NewContext: not breathing, not drug use, not eating, not intercourse, not lifting, not movement, not raising an arm and not at rest Relieved by: None triedWorsened by: NothingIneffective treatments: None triedAssociated symptoms: anxiety, fatigue, heartburn and nausea Associated symptoms: no abdominal pain, no AICD problem, no altered mental status, no anorexia, no back pain, no diaphoresis, no dizziness, no dysphagia, no fever, no headache, no lower extremity edema, no numbness, no orthopnea, no palpitations and no PND Risk factors: no aortic disease Past Medical History/Immunizations:Past Medical History: Diagnosis Date Anxiety Hypertension PTSD (post-traumatic stress disorder) of family members. Tetanus received in last 5 years: Unknown Allergies:No Known AllergiesPast Social History:Tobacco Use Every Day Smokeless Tobacco: Current user of smokeless tobacco. Past Surgical History:Past Surgical History: Procedure Laterality Date CHOLECYSTECTOMY TONSILLECTOMY Review of Systems: Review of Systems Constitutional: Positive for fatigue. Negative for diaphoresis and fever. HENT: Negative. Negative for trouble swallowing. Respiratory: Negative. Cardiovascular: Positive for chest pain. Negative for palpitations, orthopnea and PND. Gastrointestinal: Positive for heartburn and nausea. Negative for abdominal pain and anorexia. Genitourinary: Negative. Musculoskeletal: Negative. Negative for back pain. Neurological: Negative for dizziness, numbness and headaches. Psychiatric/Behavioral: Negative. All other systems reviewed and are negative.Endocrine: Endocrine negativePhysical Exam: ED Triage Vitals [02/15/23 1341] Weight 99.8 kg (220 lb) Actual or estimated Estimated by patient/family report Height 1.6 m (5' 3") BP 134/83 Pulse 103 Resp 20 Temp 36.8 ?C (98.3 ?F) Temp source Oral SpO2 97 % Measured on Room air Physical ExamVitals and nursing note reviewed. Constitutional: General: She is not in acute distress. Appearance: She is well-developed. She is obese. She is not ill-appearing, toxic-appearing or diaphoretic. HENT: Head: Normocephalic. Right Ear: External ear normal. Left Ear: External ear normal. Nose: Nose normal. Mouth/Throat: Mouth: Mucous membranes are moist. Pharynx: Oropharynx is clear. No oropharyngeal exudate or posterior oropharyngeal erythema. Eyes: General: No scleral icterus. Right eye: No discharge. Left eye: No discharge. Extraocular Movements: Extraocular movements intact. Conjunctiva/sclera: Conjunctivae normal. Pupils: Pupils are equal, round, and reactive to light. Neck: Vascular: No carotid bruit. Cardiovascular: Rate and Rhythm: Regular rhythm. Tachycardia present. Pulses: Normal pulses. Heart sounds: Normal heart sounds. No murmur heard. No friction rub. No gallop. Pulmonary: Effort: Pulmonary effort is normal. No respiratory distress. Breath sounds: Normal breath sounds. No stridor. No wheezing, rhonchi or rales. Chest: Chest wall: No tenderness. Abdominal: General: Bowel sounds are normal. There is no distension. Palpations: Abdomen is soft. There is no mass. Tenderness: There is abdominal tenderness. There is no right CVA tenderness, left CVA tenderness, guarding or rebound. Hernia: No hernia is present. Musculoskeletal: General: No swelling, tenderness, deformity or signs of injury. Normal range of motion. Cervical back: Normal range of motion and neck supple. No rigidity or tenderness. Right lower leg: No edema. Left lower leg: No edema. Lymphadenopathy: Cervical: No cervical adenopathy. Skin: General: Skin is warm and dry. Capillary Refill: Capillary refill takes less than 2 seconds. Coloration: Skin is not jaundiced or pale. Findings: No bruising, erythema, lesion or rash. Neurological: General: No focal deficit present. Mental Status: She is alert and oriented to person, place, and time. Cranial Nerves: No cranial nerve deficit. Sensory: No sensory deficit. Motor: No weakness. Coordination: Coordination normal. Gait: Gait normal. Psychiatric: Mood and Affect: Mood normal. Behavior: Behavior normal. Thought Content: Thought content normal. Judgment: Judgment normal. Radiology: reviewed by pa CT ABDOMEN PELVIS W CONTRAST Final Result CT ABDOMEN PELVIS W CONTRAST Indication: Pancreatitis, acute, severe Comparison: September 11, 2021 RL: Ordering Clinician: LEEANNE WISE Technique: Axial CT images of the abdomen and pelvis were performed with iv contrast. Sagittal and coronal reformats were created. Dose reduction techniques were used (ALARA). Technical Quality: Adequate Discussion: Lines/Devices: None. Chest/Vessels: No acute abnormalities within the lung bases. The aorta is acutely normal. Organs: No acute liver pathology. Cholecystectomy clips.r The portal vein is patent. The pancreas is normal. No splenic masses. 1.9 cm left adrenal nodule nonspecific and 34 Hounsfield units unchanged. : No hydronephrosis. No renal stones. The ureters are normal. The bladder is normal. Anteverted uterus. GI: No inflammation of the colon. No small bowel obstruction. Normal appendix. Additional Findings: Subcentimeter lymph nodes are below size criteria. No free air or free fluid. Skeleton: No acute osseous pathology. IMPRESSION Impression: No acute abnormalities. Nonspecific unchanged left adrenal nodule. Adrenal Lesion Recommendations: Benign Features 1-4cm: Current recommendations for incidentally detected adrenal mass 1-4cm in a patient with no prior history of malignancy and benign imaging features(homogenous, smooth margins, no evidence of necrosis), presume the lesion is benign and consider 12 month follow up with CT or MR. If stable for 1 year, no additional follow up recommended. (Managing Incidental Findings on Abdominal CT: White Paper of the ACR Incidental Findings Committee;Journal of the [place] [employer] Volume 7, Issue 10, Pages 552-783, April 2010). CHEST 1 VW Final Result ORDERING PHYSICIAN: LEEANNE WISE HISTORY: chest pain . TECHNIQUE: A portable upright AP view chest x-ray. COMPARISON: The chest x-ray from November 11, 2021. FINDINGS: No focal infiltrate, pleural effusion, or pneumothorax is identified. The cardiomediastinal silhouette and central vessels appear unremarkable. No acute bony abnormality is identified. IMPRESSION 1. No acute process is identified in the chest. RL: 6696 END OF REPORT Lab Results: reviewed by me Mild leukocytosis, lipase 2048, liver enzymes WNL Lab Results URINALYSIS - Abnormal Result Value Ref Range APPEARANCE Hazy (*) Clear COLOR Straw (*) Yellow PH 6.0 4.8 - 8.0 SP GRAVITY 1.002 (*) 1.003 - 1.030 GLU U QUAL Normal Normal BLOOD Negative Negative KETONES Negative Negative PROTEIN Negative Negative UROBILIN Normal Normal BILIRUBIN Negative Negative NITRITE Negative Negative LEUK MARC Negative Negative RBC/HPF <1 0 - 3 HPF WBC/HPF <1 0 - 5 HPF BACTERIA Few (*) Negative SQ EPITH 3 HPF D-DIMER - Abnormal D-DIMER 0.44 (*) <0.41 ?g/mL (FEU) CBC WITH DIFF - Abnormal WBC 12.24 (*) 4.30 - 11.10 10*3/?L RBC 5.37 (*) 3.93 - 5.25 10*6/?L HGB 15.0 11.6 - 15.0 g/dL HCT 43.3 35.7 - 45.2 % MCV 80.6 80.6 - 95.5 fL MCH 27.9 25.9 - 32.8 pg MCHC 34.6 31.6 - 35.1 g/dL RDW-SD 42.7 39.0 - 49.9 fL RDW-CV 14.6 12.0 - 15.5 % PLT 331 166 - 358 10*3/?L MPV 9.7 9.5 - 12.9 fL NRBC/100 WBC 0.0 0.0 - 10.0 /100 WBCs NRBC x10^3 <0.01 10*3/?L GRAN MAT (NEUT) % 65.7 % IMM GRAN % 0.50 % LYMPH % 26.5 % MONO % 5.4 % EOS % 1.5 % BASO % 0.4 % GRAN MAT x10^3(ANC) 8.05 (*) 1.88 - 7.09 10*3/uL IMM GRAN x10^3 0.06 0.00 - 0.06 10*3/uL LYMPH x10^3 3.24 1.32 - 3.29 10*3/uL MONO x10^3 0.66 0.33 - 0.92 10*3/uL EOS x10^3 0.18 0.03 - 0.39 10*3/uL BASO x10^3 0.05 0.01 - 0.07 10*3/uL COMP. METABOLIC PANEL (31058) - Abnormal NA 138 135 - 145 mmol/L K 3.7 3.5 - 5.0 mmol/L CL 105 98 - 108 mmol/L CO2 TOTAL 23 23 - 31 mmol/L AGAP 10 2 - 16 BUN 6 (*) 7 - 23 mg/dL GLUCOSE 92 70 - 110 mg/dL CREATININE 0.77 0.50 - 1.04 mg/dL TOTAL BILI 0.7 0.1 - 1.1 mg/dL CALCIUM 9.0 8.6 - 10.6 mg/dL T PROTEIN 7.5 6.3 - 8.2 g/dL ALBUMIN 4.0 3.5 - 5.0 g/dL ALK PHOS 101 34 - 122 U/L ALTv 25 5 - 35 U/L AST(SGOT) 36 13 - 40 U/L eGFR 81.8 mL/min/1.73m2 LIPASE - Abnormal LIPASE 2,049 (*) 0 - 220 U/L COVID-19 (ID NOW RAPID TESTING) - Normal SARS-CoV-2 Rapid ID NOW Not Detected Not Detected RAPID INFLUENZA A/B - Normal Rapid Influenza A Negative Negative Rapid Influenza B Negative Negative EKG:If EKG completed, see Procedure Note. Orders and Treatments:Orders Placed This Encounter Procedures XR CHEST [address] ABDOMEN PELVIS W CONTRAST COVID-19 (ID NOW TESTING) RAPID INFLUENZA A/B URINALYSIS D-DIMER LAB ONLY COVID INTERPRETATION CBC WITH DIFF COMP. METABOLIC PANEL (92532) LIPASE Orders Placed This Encounter Medications ibuprofen (IBU) tablet 800 mg HYDROcodone-acetaminophen (NORCO) 10-325 mg tablet 1 tablet dicyclomine (BENTYL) tablet 20 mg DISCONTD: ondansetron (ZOFRAN-ODT) disintegrating tablet 4 mg dicyclomine (BENTYL) injection 20 mg ondansetron (ZOFRAN (PF)) injection 4 mg LORazepam (ATIVAN) injection 1 mg FENTanyl PF (SUBLIMAZE (PF)) injection 75 mcg lactated ringers IV infusion 1,000 mL iopamidol (ISOVUE 370-500 mL) injection 80 mL First Provider Eval:ED Events Date/Time Event User Comments 02/15/23 134 Medical Screening Begins CANDI WISE -- 02/15/23 134 First Provider Evaluation CANDI WISE -- No notes of EC Admission Criteria type on file.ED COURSEED Course as of 02/15/231909Feb 15, 2023 1803 Accepted by Hospitalist for observation admission for acute appendicitis , will add CT abdomen on way to floor [PD] 1633 Actively vomiting in the WR and now reports abdominal pain . Will add labs . Fluids, zofran , she is becoming hyper anxious , repeating " there is something terribly wrong with me ". Will add ativan 1 mg . 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 No aggravating or alleviating factors, no SOB, no fever, no cough., no vomiting or sweats. Taken tylenol without relief 1633 hr Actively vomiting in the WR and now reports abdominal pain . Will add labs . Fluids, zofranProblems Addressed:Acute pancreatitis, unspecified complication status, unspecified pancreatitis type: acute illness or injury Details: Liver enzymes normal, history of cholecystectomy, minimally elevated WBC's CT ordered Admitted to the Hospitalist groupAnxiety: chronic illness or injuryElevated d-dimer: undiagnosed new problem with uncertain prognosis Details: Elevated D-dimer A D-Dimer value less than 0.50 ?g/ml (FEU) has a negative predicative value of 96 to 100% (95% CI)and 97 to 100% (95% CI) as an aid in the diagnosis of deep vein thrombosis (DVT) and pulmonary embolism when there is low or moderate pretest probability of PE or DVT. Major depressive disorder, remission status unspecified, unspecified whether recurrent: chronic illness or injuryObesity (BMI 30-39.9): chronic illness or injuryPTSD (post-traumatic stress disorder): chronic illness or injuryAmount and/or Complexity of Data ReviewedLabs: ordered. Decision-making details documented in ED Course. Details: Mild leukocytosis, lipase>2000, liver enzymes WNL , elevated D-dimer Radiology: ordered.ECG/medicine tests: ordered and independent interpretation performed. Decision-making details documented in ED Course. Details: Normal sinus rate of 92 bpm, normal intervals, normal segments, normal QRS, normal axis, poor r wave progression Discussion of management or test interpretation with external provider(s): Accepted for admission by Hospitalist for observation RiskPrescription drug management.Parenteral controlled substances. Flowsheet Documentation: Patient Vitals for the past 24 hrs: BP Temp Temp src Pulse Resp SpO2 Height Weight 02/15/23 1800 111/81 -- -- 83 20 94 % -- -- 02/15/23 1700 109/71 -- -- 83 15 97 % -- -- 02/15/23 1341 134/83 36.8 ?C (98.3 ?F) Oral 103 20 97 % 1.6 m (5' 3") 99.8 kg (220 lb) Disposition/Condition:ED Disposition ED Disposition Admit - Observation Condition -- Comment Is (or was) this a planned re-admission?: No Treatment Team: [facility] [[id number]] Is this patient COVID positive or a patient under investigation (PUI)?: No Electronically signed by: Leeanne Wise, CHICHO02/15/23 1911 ssociated attestation - Bushra Rios DO - 02/16/2023 7:30 AM CDT I was personally available for consultation in the Emergency Department during this encounter and patient evaluation by Leeanne Wise.46365-3Iavsrmrpy Emergency department [id number], Sandra J1.2.840.293754.1.13.104.2.7.2.8369 47XrfyaedbFcerbdIXP0447-57-48X13:30 :51Physician Emergency department NoteTXT1.2.840.541810.1.13.104.2.7. 2.571567|[id number] for patient dxae54014-7Sgikdokej department NoteLN[address] Md[id number] 7IQLDMQKDGGDMVOOORQAGPK0798-83-35J3 7:30:511.2.840.708653.1.72.3.15|1.2 .840.692634.1.13.104.2.7.2.727879_1 [id number] [facility]
[2023-12-15] MEDS ORDERED: ONDANSETRON 4 MG/2 ML VIAL ONE (20:43)
[2023-12-15] MEDS ORDERED: MORPHINE 4 MG/ML SYR ONE (20:43)
[2023-12-15 20:52] LABS: Absolute Basophils 0.1 K/uL (0-0.5); Absolute Eosinophils 0.2 K/uL (0-0.5); Absolute Lymphocytes (CBC) 3.3 K/uL (0.7-4.9); Absolute Monocytes 0.6 K/uL (0.1-1.3); Absolute Neutrophil 9.2 K/uL (1.8-8.0); Basophils % 0.8 % (0-1.3); Eosinophils % 1.5 % (0-4.4); Hemoglobin 12.4 g/dL (12.0-15.0); Lymphocytes % 24.5 % (15.3-44.8); MCH 25.7 pg (27.0-35.0); MCHC 32.7 g/dL (32.0-36.0); MCV 78.5 fL (80-100); MPV 7.6 fL (7.6-11.3); Monocytes % 4.2 % (3.3-12.3); Platelets 356 thou/uL (152-406); RBC Red Blood Cell Count 4.84 M/uL (3.86-4.86); Red Cell Distribution Width 16.7 % (12.1-15.2)
--- NOTE | 2023-12-15 21:03 | RAD REPORT ---
EXAM DESCRIPTION: RAD - Chest Single View - 12/15/2023 8:47 pm CLINICAL HISTORY: CHEST PAIN COMPARISON: Chest Single View dated 12/04/2023; Chest Single View dated 11/17/2023; Chest Single View dated 05/15/2023; Chest Single View dated 05/02/2023 FINDINGS: Lines: None. Lungs: No evidence of edema or pneumonia. Pleural: No significant pleural effusions or pneumothorax. Cardiac: The heart size is within normal limits. Mediastinum: Within normal limits. Bones: No acute fractures. Other: None IMPRESSION: No acute cardiopulmonary disease.
[2023-12-15 21:09] LABS: Anion Gap 7.5 mEq/L (5.0-15.0); BUN Blood Urea Nitrogen 9 mg/dL (7-18); Bicarbonate 23 mEq/L (21-32); Glomerular Filtration Rate 104 ml/min (=/>90); Glucose Level 125 mg/dL (74-106); NT PRO-BNP 11 pg/mL (<125); Potassium 3.5 mEq/L (3.5-5.1); Sodium Level 136 mEq/L (136-145)
[2023-12-15 21:14] LABS: Troponin High Sensitivity < 3.0 pg/mL (<58.9)
[2023-12-15] MEDS ORDERED: HYDROMORPHONE HCL 1 MG/ML INJ ONE (22:20)
--- NOTE | 2023-12-15 22:44 | RAD REPORT ---
EXAM DESCRIPTION: CT - Chest For Pe Angio - 12/15/2023 10:29 pm CLINICAL HISTORY: recent procedure;Chest pain COMPARISON: Chest For Pe Angio dated 12/05/2023; Chest For Pe Angio dated 03/24/2022; Chest For Pe Ang io dated 01/11/2022; Chest For Pe Angio dated 04/14/2021; Abdomen Pelvis W Contrast dated 10/11/2020 TECHNIQUE: Dynamically enhanced axial 3 mm thick images of the chest were obtained during administra tion of <100> mL Isovue 370 IV contrast. Coronal and oblique reconstruction images were generated and reviewed. Exam utilizes a protocol for optimal evaluation of pulmonary arterial tree. Maximum intensity projections 3D imaging was utilized All CT scans are performed using dose optimization technique as appropriate and may include automated exposure control or mA/KV adjustment according to patient size. FINDINGS: Chest Wall: No suspicious thyroid nodules or pathologic lymphadenopathy. Lungs: Dependent ground-glass opacities. No suspicious pulmonary nodules. No edema or evidence of pn eumonia. . Pleura: No significant effusions or pneumothorax. Mediastinum/contreras: No pathologic lymphadenopathy. Pulmonary arteries/Aorta: No filling defect identified. No aortic aneurysm. Heart: No significant pericardial effusion. Normal heart size. Upper abdomen: No acute abnormality.Left adrenal nodule which is indeterminate imaging features is st able since at least 10/11/2020 consistent with a benign process. No follow-up required. Cholecystecto my. Bones: No acute abnormality. IMPRESSION: Negative for pulmonary embolism. Mild nonspecific dependent ground-glass opacities could reflect either dependent atelectasis or possibly mild pneumonitis.
--- NOTE | 2023-12-16 00:03 | ER ---
Nurse's Notes [facility] Name: Charity Hanks Age: 43 yrs Sex: Female : 1980 Arrival Date: 12/15/2023 Time: 20:27 Bed 7 Private MD: Diagnosis: Chest pain, unspecified Presentation: 12/14 20:34 Chief complaint: Patient states: I'm having chest pressure that started this afternoon, jw7 "It feels like there is an elephant sitting on my chest" and it radiates to my left shoulder and neck. Coronavirus screen: At this time, the client does not indicate any symptoms associated with coronavirus-19. Ebola Screen: No symptoms or risks identified at this time. Initial Sepsis Screen: Does the patient meet any 2 criteria? RR > 20 per min. HR > 90 bpm. Yes Does the patient have a suspected source of infection? No. Patient's initial sepsis screen is negative. Risk Assessment: Do you want to hurt yourself or someone else? Patient reports no desire to harm self or others. Onset of symptoms was December 15, 2023. Care prior to arrival: Medication(s) given: ASA, 81 mg, x 3, Pt took 1 baby aspirin at home before EMS arrival zofran 4 mg, IV initiated. 22 GA, in the left hand, Oxygen administered. via nasal cannula. 20:34 Method Of Arrival: EMS: [facility] jw7 20:34 Acuity: CARLOS 3 jw7 Triage Assessment: 20:39 General: Appears in no apparent distress. uncomfortable, Behavior is calm, cooperative, jw7 appropriate for age. Pain: Complains of pain in chest Pain radiates to Left Shoulder and Neck Pain currently is 9 out of 10 on a pain scale. Quality of pain is described as pressure, Pain began suddenly, Is continuous. EENT: No deficits noted. No signs and/or symptoms were reported regarding the EENT system. Neuro: Level of Consciousness is awake, alert, obeys commands, Oriented to person, place, time, situation, Appropriate for age. Cardiovascular: Heart tones S1 S2 present Capillary refill < 3 seconds Clubbing of nail beds is absent JVD is absent Patient's skin is warm and dry. Rhythm is sinus tachycardia. Respiratory: Airway is patent Trachea midline Respiratory effort is even, unlabored, Respiratory pattern is regular, symmetrical. GI: Abdomen is round non-distended, obese, Bowel sounds present X 4 quads. Abd is soft and non tender X 4 quads. : No deficits noted. No signs and/or symptoms were reported regarding the genitourinary system. Derm: Skin is intact, is healthy with good turgor, Skin is dry, Skin is normal, Skin temperature is warm. Musculoskeletal: Circulation, motion, and sensation intact. Range of motion: intact in all extremities. 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 - Infectious Disease History:: Denies. - Social history:: Smoking status: Patient reports the use of cigarette tobacco products, smokes one-half pack cigarettes per day, Patient/guardian denies using alcohol, street drugs, IV drugs. - Family history:: not pertinent. - Hospitalizations: : The patient was recently seen at [facility]. Screenin:44 [facility] ED Fall Risk Assessment (Adult) History of falling in the last 3 months, jw7 including since admission No falls in past 3 months (0 pts) Confusion or Disorientation No (0 pts) Intoxicated or Sedated No (0 pts) Impaired Gait No (0 pts) Mobility Assist Device Used No (0 pt) Altered Elimination No (0 pt) Score/Fall Risk Level 0 - 2 = Low Risk Oriented to surroundings, Maintained a safe environment, Educated pt \\T\\ family on fall prevention, incl call for assistance when getting out of bed. Abuse screen: Denies threats or abuse. Denies injuries from another. Nutritional screening: No deficits noted. Tuberculosis screening: No symptoms or risk factors identified. Assessment: 20:40 General: See Triage Assessment. jw7 21:20 Reassessment: Patient and/or family updated on plan of care and expected duration. Pain ha1 level reassessed. Patient is alert, oriented x 3, equal unlabored respirations, skin warm/dry/pink. Patient states symptoms have improved. 22:30 Reassessment: Patient appears in no apparent distress at this time. No changes from [facility] previously documented assessment. Patient and/or family updated on plan of care and expected duration. Pain level reassessed. Patient is alert, oriented x 3, equal unlabored respirations, skin warm/dry/pink. 23:29 Reassessment: Patient appears in no apparent distress at this time. No changes from [facility] previously documented assessment. Patient and/or family updated on plan of care and expected duration. Pain level reassessed. Patient is alert, oriented x 3, equal unlabored respirations, skin warm/dry/pink. 12/15 00:30 Reassessment: Patient appears in no apparent distress at this time. Patient and/or jw7 family updated on plan of care and expected duration. Pain level reassessed. Patient is alert, oriented x 3, equal unlabored respirations, skin warm/dry/pink. 01:03 Reassessment: ATTEMPTED TO GIVE REPORT. ha1 01:19 Reassessment: REPORT GIVEN TO JAMES WANG. ha1 01:30 Reassessment: Patient appears in no apparent distress at this time. Patient and/or jw7 family updated on plan of care and expected duration. Pain level reassessed. Patient is alert, oriented x 3, equal unlabored respirations, skin warm/dry/pink. Patient states symptoms have improved. Vital Signs: 12/14 20:34 BP 127 / 90; Pulse 108; Resp 21 S; Temp 97.8(O); Pulse Ox 98% on R/A; Weight 104.78 kg; jw7 Height 5 ft. 2 in. ; Pain 9/10; 22:15 BP 132 / 99; Pulse 98; Resp 20 S; Pulse Ox 98% on 2 lpm NC; ha1 23:15 BP 126 / 83; Pulse 98; Resp 19 S; Pulse Ox 99% on 2 lpm NC; jw7 12/15 00:00 BP 130 / 86; Pulse 90; Resp 21 S; Pulse Ox 97% on 2 lpm NC; jw7 01:30 BP 121 / 80; Pulse 93; Resp 20 S; Temp 98.1(TE); Pulse Ox 98% on 2 lpm NC; 7 12/14 20:34 Body Mass Index 42.25 (104.78 kg, 157.48 cm) 7 12/14 20:34 Pain Scale: Adult [facility] ED Course: 12/14 20:28 Patient arrived in ED. rn 20:28 Carmine Jackson MD is Attending Physician. rn 20:39 Triage completed. jw7 20:39 Arm band placed on. jw7 20:40 Basic Metabolic Panel Sent. ha1 20:40 CBC with Diff Sent. ha1 20:40 NT PRO-BNP Sent. ha1 20:40 Troponin HS Sent. ha1 20:40 Maintain EMS IV. Dressing intact. Good blood return noted. Site clean \\T\\ dry. Gauge \\T\\ km f site: 24G Left Hand . 20:44 Patient has correct armband on for positive identification. Bed in low position. Call [facility] light in reach. Provided Education on: Use of Call Light. 20:49 XRAY Chest (1 view) In Process Unspecified. EDOK 20:49 Door closed. Noise minimized. Lights dimmed. km 22:22 Inserted saline lock: 22 gauge in left wrist, using aseptic technique. Blood collected. [facility] 22:30 CT Chest For PE Angio In Process Unspecified. EDOK 12/15 00:01 Perez Still MD is Hospitalizing Provider. rn 01:48 No provider procedures requiring assistance completed. Patient admitted, IV remains in [facility] place. Administered Medications: 12/14 20:46 Drug: Ondansetron IVP 4 mg IVP once; over 2 minutes Route: IVP; Site: left hand; ha 21:30 Follow up: Response: No adverse reaction; Marked relief of symptoms; [facility] 20:49 Drug: morphine IVP or IV 4 mg IVP once over 4 mins Route: IVP; Infused Over: 4 mins; ha1 Site: left hand; 21:40 Follow up: Response: No adverse reaction; Marked relief of symptoms; Pain is decreased [facility] 22:23 Drug: HYDROmorphone IVP 1 mg IVP once Route: IVP; Site: left wrist; ha1 23:30 Follow up: Response: No adverse reaction; Marked relief of symptoms; Pain is decreased jw7 Medication: 12/15 01:48 VIS not applicable for this client. jw7 Outcome: 00:02 Decision to Hospitalize by Provider. rn 01:48 Admitted to ICU accompanied by nurse, via stretcher, room 6, Report called to JAMES Wang jw7 01:48 Condition: stable 01:48 Instructed on the need for admit, Demonstrated understanding of instructions, 01:51 Patient left the ED. jw7 Signatures: Dispatcher [employer] EDMS Carmine Jackson MD MD rn Waits, Jodi, RN RN jwNelly Arevalo RN RN ha1 Kellee Bee [facility] Corrections: (The following items were deleted from the chart) 12/14 22:22 20:40 Maintain EMS IV. Dressing intact. Good blood return noted. Site clean \\T\\ dry. kmf Gauge \\T\\ site: 24G Left Hand . [facility] 12/15 00:46 12/14 23:15 BP 126 / 83; Pulse 98bpm; Resp 19bpm; Spontaneous; Pulse Ox 99% RA; jw7 jw7 12/15 01:03 12/14 20:39 PSHx: Cardiac Stent X1; jw7 jw7 12/15 01:50 01:30 BP 121 / 80; Pulse 93bpm; Resp 20bpm; Spontaneous; Pulse Ox 98% 2 lpm Nasal jw7 Cannula; jw7
--- NOTE | 2023-12-16 00:03 | EDPHYS ---
Physician Documentation [facility] Name: Charity Hanks Age: 43 yrs Sex: Female : 1980 Arrival Date: 12/15/2023 Time: 20:27 Bed 7 Private MD: ED Physician Carmine Jackson HPI: 12/14 20:31 This 43 yrs old Female presents to ER via Unassigned with complaints of chest pain. rn 20:31 The patient or guardian reports chest pain that is located primarily in the anterior rn chest wall, left. Onset: this morning. The pain radiates to the left shoulder. Associated signs and symptoms: Pertinent negatives: abdominal pain, cough, diaphoresis, shortness of breath, syncope, vomiting. The chest pain is described as a heaviness. Duration: The patient or guardian reports a single episode, that is still ongoing. Modifying factors: The symptoms are alleviated by nothing. the symptoms are aggravated by nothing. Severity of pain: At its worst the pain was moderate in the emergency department the pain is unchanged. The patient has experienced similar episodes in the past. The patient has been recently seen by a physician:. Patient reports chest pain that began this morning. Chest pain is constant, heavy, radiates to left shoulder and clavicle. No shortness of breath. No vomiting. No diaphoresis. States recently admitted and had stent placed about 10 days ago, compliant with aspirin and Plavix and Lipitor. No injury. No history of DVT or PE.. 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 - Infectious Disease History:: Denies. - Social history:: Smoking status: Patient reports the use of cigarette tobacco products, smokes one-half pack cigarettes per day, Patient/guardian denies using alcohol, street drugs, IV drugs. - Family history:: not pertinent. - Hospitalizations: : The patient was recently seen at [facility]. ROS: 20:56 Constitutional: Negative for fever, chills, and weight loss, Cardiovascular: Positive rn for chest pain Respiratory: Negative for shortness of breath, cough, wheezing, and pleuritic chest pain, Abdomen/GI: Negative for abdominal pain, nausea, vomiting, diarrhea, and constipation, Back: Negative for injury and pain, MS/Extremity: Negative for injury and deformity, Skin: Negative for injury, rash, and discoloration, Neuro: Negative for headache, weakness, numbness, tingling, and seizure, Exam: 20:56 Constitutional: This is a well developed, well nourished patient who is awake, alert, rn and in no acute distress. Cardiovascular: Tachycardic, regular.. No pulse deficits. Respiratory: Mild tachypnea. Abdomen/GI: Soft, non-tender MS/ Extremity: Pulses equal, no cyanosis. Neurovascular intact. Full, normal range of motion. Equal circumference. Neuro: Awake and alert, GCS 15 Vital Signs: 20:34 BP 127 / 90; Pulse 108; Resp 21 S; Temp 97.8(O); Pulse Ox 98% on R/A; Weight 104.78 kg; jw7 Height 5 ft. 2 in. ; Pain 9/10; 22:15 BP 132 / 99; Pulse 98; Resp 20 S; Pulse Ox 98% on 2 lpm NC; ha1 23:15 BP 126 / 83; Pulse 98; Resp 19 S; Pulse Ox 99% on 2 lpm NC; 7 12/15 00:00 BP 130 / 86; Pulse 90; Resp 21 S; Pulse Ox 97% on 2 lpm NC; [facility] 01:30 BP 121 / 80; Pulse 93; Resp 20 S; Temp 98.1(TE); Pulse Ox 98% on 2 lpm NC; 7 12/14 20:34 Body Mass Index 42.25 (104.78 kg, 157.48 cm) [facility] 12/14 20:34 Pain Scale: Adult [facility] MDM: 12/14 20:28 Patient medically screened. rn 20:36 External Records Reviewed: Inpatient record: Inpatient record and Piano Accompanist and echo rn reviewed from most recent admission. Patient had small areas 30 to 40% stenosis in the LAD with luminal irregularities, had successful stent to stenotic PDA. Left circumflex was large and normal.. 12/15 00:00 Differential diagnosis: acute myocardial infarction, acute pericarditis, anxiety, chest rn wall pain, costochondritis, gastroesophageal reflux disease (GERD), pericarditis, pleurisy, pneumonia, pneumothorax, pulmonary embolus. HEART Score: History: Moderately Suspicious (1), ECG: Non specific repolarization disturbance / LBTB / PM (1), Age: < or = 45 years (0), Risk Factors: > or = 3 Risk factors for atherosclerotic disease (2), Troponin: < or = 1 x Normal Limit (0), Total Score = 4. Data reviewed: vital signs, nurses notes, lab test result(s), EKG, radiologic studies, CT scan, plain films, and as a result, I will admit patient. Consideration of Admission/Observation Patient was admitted/placed on observation. Escalation of care including admission/observation considered. Counseling: I had a detailed discussion with the patient and/or guardian regarding the historical points, exam findings, and any diagnostic results supporting the discharge/admit diagnosis, lab results, radiology results, the need for further work-up and treatment in the hospital. Response to treatment: There is no appreciated change of the patient's symptoms at this time. ED course: Patient with negative workup here but still having 8 out of 10 chest pain with diaphoresis without clear etiology. Given recent stent placement and identical pain, will admit for further evaluation and observation.. 12/14 20:30 Order name: Basic Metabolic Panel; Complete Time: 21:17 rn 12/14 20:30 Order name: CBC with Diff; Complete Time: 21:03 rn 12/14 20:30 Order name: NT PRO-BNP; Complete Time: 21:17 rn 12/14 20:30 Order name: Troponin HS; Complete Time: 21:17 rn 12/14 22:55 Order name: Troponin High Sensitivity; Complete Time: 23:57 rn 12/15 00:26 Order name: CBC with Automated Diff EDMS 12/15 00:26 Order name: CBC with Automated Diff EDMS 12/15 00:26 Order name: Comprehensive Metabolic Panel EDMS 12/15 00:26 Order name: Comprehensive Metabolic Panel [facility] 12/15 00:26 Order name: Troponin High Sensitivity [facility] 12/15 00:26 Order name: Troponin High Sensitivity [facility] 12/14 20:30 Order name: XRAY Chest (1 view); Complete Time: 21:05 rn 12/14 20:57 Order name: CT Chest For PE Angio; Complete Time: 22:55 rn 12/15 00:26 Order name: CONS Physician Consult [facility] 12/14 20:30 Order name: Cardiac monitoring; Complete Time: 20:40 rn 12/14 20:30 Order name: EKG - Nurse/Tech; Complete Time: 20:34 rn 12/14 20:30 Order name: IV Saline Lock; Complete Time: 20:40 rn 12/14 20:30 Order name: Labs collected and sent; Complete Time: 20:40 rn 12/14 20:30 Order name: O2 Per Protocol; Complete Time: 20:34 rn 12/14 20:30 Order name: O2 Sat Monitoring; Complete Time: 20:34 rn Administered Medications: 12/14 20:46 Drug: Ondansetron IVP 4 mg IVP once; over 2 minutes Route: IVP; Site: left hand; ha1 21:30 Follow up: Response: No adverse reaction; Marked relief of symptoms; Nausea is decreasedjw7 20:49 Drug: morphine IVP or IV 4 mg IVP once over 4 mins Route: IVP; Infused Over: 4 mins; ha1 Site: left hand; 21:40 Follow up: Response: No adverse reaction; Marked relief of symptoms; Pain is decreased jw7 22:23 Drug: HYDROmorphone IVP 1 mg IVP once Route: IVP; Site: left wrist; ha1 23:30 Follow up: Response: No adverse reaction; Marked relief of symptoms; Pain is decreased jw7 Disposition Summary: 12/16/23 00:02 Hospitalization Ordered Notes: Hospitalization Status: Observation rn Provider: Perez Still rn Condition: Stable rn Problem: new rn Symptoms: are unchanged rn Bed/Room Type: Standard rn Location: Intensive Care Unit(12/16/23 01:00) kb3 Room Assignment: 6-(12/16/23 01:15) cg Diagnosis - Chest pain, unspecified rn Forms: - Medication Reconciliation Form rn - SBAR form rn - Leadership Thank You Letter rn Signatures: Dispatcher [employer] EDMS Carmine Jackson MD MD rn Garcia, Cindy, RN RN Kimberly Evans, RN RN jw7 Nelly Morales, RN RN ha1 Doan Vazquez, RN RN kb3 Corrections: (The following items were deleted from the chart) 20:30 20:30 BASIC METABOLIC PANEL+C.LAB.BRZ ordered. EDMS EDMS 20:30 20:30 CBC+H.LAB.BRZ ordered. EDMS EDMS 20:30 20:30 PROBNP+C.LAB.BRZ ordered. EDMS EDMS 20:30 20:30 Troponin High Sensitivity+C.LAB.BRZ ordered. EDMS EDMS 20:30 20:30 Chest Single View+RAD.RAD.BRZ ordered. EDMS EDMS 20:57 20:56 Constitutional: This is a well developed, well nourished patient who is awake, rn alert, and in no acute distress. Cardiovascular: Tachycardic, regular.. No pulse deficits. Respiratory: Lungs have equal breath sounds bilaterally, clear to auscultation and percussion. No rales, rhonchi or wheezes noted. No increased work of breathing, no retractions or nasal flaring. Abdomen/GI: Soft, non-tender, with normal bowel sounds. No distension or tympany. No guarding or rebound. No evidence of tenderness throughout. rn 12/15 01:00 00:02 Telemetry/MedSurg (observation) rn kb3 01:00 00:02 rn kb3 01:03 12/14 20:39 PSHx: Cardiac Stent X1; jw7 jw7 12/15 01:15 01:00 1- kb3 cg
[2023-12-16] MEDS ORDERED: HYDRALAZINE HCL 20 MG/ML VIAL IV PRN (00:18)
[2023-12-16] MEDS ORDERED: MELATONIN 5 MG TABLET PO PRN (00:18)
--- NOTE | 2023-12-16 00:18 | P.HP ---
Certification for Inpatient Patient admitted to: Observation With expected LOS: <2 Midnights Patient will require the following post-hospital care: None Practitioner: I am a practitioner with admitting privileges, knowledge of patient current condition, hospital course, and medical plan of care. Services: Services provided to patient in accordance with Admission requirements found in Title 42 Section 412.3 of the Code of Federal Regulations Patient History Date of Service: 12/16/23 Reason for admission: Chest pain History of Present Illness: 43-year-old female past medical history of hypertension, chronic tobacco use, CAD status post right PDA PCI [address] Arthur cardiac cath at this time show 30 to 40% LAD stenosis which were not stented; presented today because of new onset chest pain started about this afternoon6 hours prior to presentation, described as at the left chest wall radiating to the shoulder, pain feels more like pressure-likelike elephant sitting on her chest. Pain was still persistent at the time of presentation in the ED. She denies any shortness of breath palpitation or diaphoresis. She denies any cough or fever. She is on aspirin and Plavix post stent and admit to compliance with medication. On arrival in the ED Vital signs were stable with mild tachycardia at 108, afebrile. EKG shows no new ST segment changes, chest x-ray shows no acute infiltrate, laboratory workup showed WBC elevated at 14,000 with no significant differential changes, BMP was unremarkable. Troponin x [address] of t he chest shows no pulmonary embolism, mild bibasilar opacity worrisome for atelectasis versus early pneumonitis Patient has been admitted for further chest pain workup Allergies No Known Allergies Allergy (Unverified 03/25/22 00:43) Home Medications: ARIPiprazole [Abilify*] 5 mg PO DAILY 12/05/23 Doxepin HCl 3 mg PO BEDTIME 12/05/23 Ketorolac Tromethamine 1 tab PO Q6HP PRN 12/05/23 Lorazepam [Ativan] 1 mg PO BID 12/05/23 Sertraline HCl 100 mg PO DAILY 12/05/23 Suvorexant [Belsomra] 20 mg PO DAILY 12/05/23 hydrOXYzine pamoate [Hydroxyzine Pamoate] 1 tab PO BEDTIME PRN PRN 12/05/23 Aspirin [Adult Aspirin Regimen] 81 mg PO DAILY 30 Days #30 tab 12/06/23 Atorvastatin Calcium 40 mg PO DAILY 30 Days #30 tab 12/06/23 Atorvastatin Calcium [Lipitor] 40 mg PO BEDTIME tab 12/06/23 Clopidogrel Bisulfate [Plavix*] 75 mg PO DAILY 30 Days #30 tab 12/06/23 Mometasone/Formoterol [Dulera 200 Mcg/5 Mcg Inhaler] 2 puff IH BID 30 Days #1 inhaler 12/06/23 - Past Medical/Surgical History Diabetic: No -: Anxiety/depression -: Bipolar -: PTSD -: Cholecystectomy -: tonsillectomy Psychosocial/ Personal History: Unemployed, lives at home with her father and 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 - Family History Family History: Reviewed- Non-Contributory - Family History Mother -: Heart disease Father -: Heart disease - Social History Smoking Status: Light Tobacco smoker (1-9 cigarettes/day) Counseled patient to stop smoking for: more than 10 minutes Smoking therapy provided: No Patient receptive to therapy: No Alcohol use: No CD- Drugs: No Caffeine use: Yes Place of Residence: Home Review of Systems Cardiovascular: Chest Pain Physical Examination - Physical Exam General: Alert, In no apparent distress, Oriented x3, Cooperative HEENT: Atraumatic, Normocephalic, PERRLA Neck: 2+ carotid pulse no bruit, JVD not distended Respiratory: Clear to auscultation bilaterally, Normal air movement Cardiovascular: Normal pulses, Regular rate/rhythm, Normal S1 S2 Gastrointestinal: Normal bowel sounds, Soft and benign, Non-distended, No ascites Musculoskeletal: No clubbing, No swelling Integumentary: No rashes, No breakdown Neurological: Normal speech, Normal strength at 5/5 x4 extr, Normal tone, Sensation intact, Cranial nerves 3-12 intact - Studies Laboratory Data (last 24 hrs) 12/15/23 12/15/23 20:40 20:40 WBC 13.40 H Hgb 12.4 Hct 38.0 Plt Count 356 Sodium 136 Potassium 3.5 BUN 9 Creatinine 0.73 Glucose 125 H Assessment and Plan - Problems (Diagnosis) (1) CAD (coronary artery disease) Current Visit: Yes Status: Acute (2) Chest pain Current Visit: No Status: Acute Qualifiers: - Plan Impression Recurrent left-sided chest painMay be due to recurrent acute coronary syndrome versus early pneumonitis CAD status post PCI 1 week ago Anxiety disorder Chronic tobacco use Hyperlipidemia Plan Will admit to observation Cardiology consult in a.m. Continue serial sets of cardiac enzymes, troponin x 2 negative Dose nitroglycerin sublingual x 1 now to see if relief of chest pain Continue aspirin Plavix Continue statin Tobacco cessation advised, Place nicotine patch Given possible early pneumonitis noted on CT as well as mild leukocytosis, start empirical antibiotics with Rocephin Monitor response to antibiotics Might benefit from inpatient stress test but will defer to cardiology Lovenox for DVT prophylaxis Full code Possible discharge in 24 to 48 hours - Advance Directives Does patient have a Living Will: No Does patient have a Durable POA for Healthcare: No
[2023-12-16] MEDS ORDERED: ALBUTEROL 2.5 MG/3 ML NEB SOL NEB PRN (00:21)
[2023-12-16] MEDS ORDERED: ACETAMINOPHEN 500 MG TAB PO PRN (00:21)
[2023-12-16] MEDS ORDERED: ONDANSETRON 4 MG/2 ML VIAL ONE (01:07)
[2023-12-16] MEDS ORDERED: MORPHINE 2 MG/ML SYR ONE (01:08)
[2023-12-16] MEDS: MORPHINE 2 MG/ML SYR IV PRN (01:14)
[2023-12-16] MEDS: ONDANSETRON 4 MG/2 ML VIAL IV PRN (01:14)
[2023-12-16] MEDS: FAMOTIDINE 20 MG TAB PO SCH (02:06)
[2023-12-16 02:08] VITALS: O2SAT 98
[2023-12-16 02:41] VITALS: BMI 42.2
[2023-12-16] MEDS: NS KCL 20MEQ 20 MEQ/1,000 ML BAG IV SCH (02:49)
[2023-12-16] MEDS: CEFTRIAXONE 1,000 MG in NA CHLORIDE 0.9% 50 ML IVPB SCH (02:50)
[2023-12-16] MEDS: NITROGLYCERIN 0.4 MG/TAB SL ONE ×2 (04:23→04:24)
[2023-12-16 08:08] LABS: Absolute Eosinophils 0.2 K/uL (0-0.5); Absolute Monocytes 0.5 K/uL (0.1-1.3); Absolute Neutrophil 7.1 K/uL (1.8-8.0); Basophils % 0.4 % (0-1.3); Eosinophils % 1.8 % (0-4.4); Hematocrit 36.4 % (36.0-45.0); Hemoglobin 11.9 g/dL (12.0-15.0); Lymphocytes % 20.7 % (15.3-44.8); MCHC 32.7 g/dL (32.0-36.0); MCV 79.5 fL (80-100); MPV 7.5 fL (7.6-11.3); Neutrophils % 72.1 % (41.7-73.7); Platelets 324 thou/uL (152-406); RBC Red Blood Cell Count 4.58 M/uL (3.86-4.86); Red Cell Distribution Width 16.8 % (12.1-15.2)
[2023-12-16] MEDS: NICOTINE 21 MG/PAT TD SCH (08:26)
[2023-12-16] MEDS: ENOXAPARIN 40 MG/0.4 ML SQ SCH (08:26)
[2023-12-16] MEDS: CLOPIDOGREL 75 MG TABLET PO SCH (08:27)
[2023-12-16] MEDS: SERTRALINE HCL 50 MG TAB PO SCH (08:27)
[2023-12-16] MEDS: ASPIRIN EC 81 MG TAB PO SCH (08:27)
[2023-12-16 08:29] LABS: Anion Gap 6.2 mEq/L (5.0-15.0); BUN Blood Urea Nitrogen 9 mg/dL (7-18); Bicarbonate 25 mEq/L (21-32); Glomerular Filtration Rate 113 ml/min (=/>90); Glucose Level 118 mg/dL (74-106); Magnesium 2.1 mg/dL (1.6-2.4); Phosphorus 3.2 mg/dL (2.5-4.9); Potassium 4.2 mEq/L (3.5-5.1); Sodium Level 138 mEq/L (136-145)
[2023-12-16 08:31] LABS: Troponin High Sensitivity < 3.0 pg/mL (<58.9)
[2023-12-16] MEDS ORDERED: ATORVASTATIN 40 MG TAB PO SCH ×2 (09:00→21:00)
[2023-12-16] MEDS: PANTOPRAZOLE 40MG TABLET PO SCH (09:15)
[2023-12-16] MEDS: SUCRALFATE 1GM/10ML UCUP FT SCH (09:18)
--- NOTE | 2023-12-16 10:42 | P.CNS ---
Date of Consult: 12/16/23 Chief Complaint: Chest pain History of Present Illness: Patient with PMH of CAD, recent PCI RPDA, presented with chest pressure sensation that started yesterday, mid chest, no radiation, no other associated symptoms. Allergies No Known Allergies Allergy (Unverified 03/25/22 00:43) Home Medications: Doxepin HCl 3 mg PO BEDTIME 12/05/23 Ketorolac Tromethamine 1 tab PO Q6HP PRN 12/05/23 Lorazepam [Ativan] 1 mg PO BID 12/05/23 Sertraline HCl 150 mg PO DAILY 12/05/23 Suvorexant [Belsomra] 20 mg PO BEDTIME 12/05/23 hydrOXYzine pamoate [Hydroxyzine Pamoate] 1 tab PO BEDTIME PRN PRN 12/05/23 Aspirin [Adult Aspirin Regimen] 81 mg PO DAILY 30 Days #30 tab 12/06/23 Atorvastatin Calcium 40 mg PO DAILY 30 Days #30 tab 12/06/23 Clopidogrel Bisulfate [Plavix*] 75 mg PO DAILY 30 Days #30 tab 12/06/23 Mometasone/Formoterol [Dulera 200 Mcg/5 Mcg Inhaler] 2 puff IH BID 30 Days #1 inhaler 12/06/23 - Past Medical/Surgical History Diabetic: No -: Anxiety/depression -: Bipolar -: PTSD -: HLD -: [place] -: Cholecystectomy -: tonsillectomy -: cardiac stent x1 Psychosocial/ Personal History: Unemployed, lives at home with her father and 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 - Family History Mother Medical History: Heart disease Father Medical History: Heart disease Brother Notes: bipolar. anxiety. depression - Social History Smoking Status: Current every day smoker Alcohol use: No CD- Drugs: No Caffeine use: Yes Place of Residence: Home Review of Systems 10-point ROS is otherwise unremarkable Physical Examination Temp Pulse Resp BP Pulse Ox 97.1 F 82 19 112/73 98 12/16/23 08:00 12/16/23 08:00 12/16/23 08:00 12/16/23 08:00 12/16/23 08:00 General: Alert, In no apparent distress HEENT: Atraumatic, PERRLA, Mucous membr. moist/pink, EOMI, Sclerae nonicteric Neck: Supple, 2+ carotid pulse no bruit, No LAD, Without JVD or thyroid abnormality Respiratory: Clear to auscultation bilaterally, Normal air movement Cardiovascular: Regular rate/rhythm, Normal S1 S2 Gastrointestinal: Normal bowel sounds, No tenderness Musculoskeletal: No tenderness Integumentary: No rashes Neurological: Normal gait, Normal speech, Normal tone, Normal affect Lymphatics: No axilla or inguinal lymphadenopathy Laboratory Data (last 24 hrs) 12/15/23 12/15/23 20:40 20:40 WBC 13.40 H Hgb 12.4 Hct 38.0 Plt Count 356 Sodium 136 Potassium 3.5 BUN 9 Creatinine 0.73 Glucose 125 H - Problems (1) Chest pain Current Visit: No Status: Acute Plan: atypical, troponin has been negative, start Imdur 30 mg daily Continue ASA and Plavix. No need for further cardiac work up. can follow up as outpatient for possible stress test. Qualifiers:
[2023-12-16] MEDS: ISOSORBIDE MONO SR 30 MG TAB PO SCH (11:04)
[2023-12-16 11:40] VITALS: BP 114/79; TEMP 97.2
--- NOTE | 2023-12-16 12:19 | P.DS ---
Admission Date: 12/16/23 Discharge Date: 12/16/23 Disposition: ROUTINE DISCHARGE Discharge Condition: GOOD Reason for Admission: Chest pain Brief History of Present Illness: Diagnosis Chest pain Coronary artery disease HPI 12/16/23 Charity Hanks is a 43-year-old female past medical history of hypertension, chronic tobacco use, CAD status post right PDA PCI [address] Arthur cardiac cath at this time show 30 to 40% LAD stenosis which were not stented; presented today because of new onset chest pain started about this afternoon6 hours prior to presentation, described as at the left chest wall radiating to the shoulder, pain feels more like pressure-likelike elephant sitting on her chest. Pain was still persistent at the time of presentation in the ED. She denies any shortness of breath palpitation or diaphoresis. She denies any cough or fever. She is on aspirin and Plavix post stent and admit to compliance with medication. On arrival in the ED Vital signs were stable with mild tachycardia at 108, afebrile. EKG shows no new ST segment changes, chest x-ray shows no acute infiltrate, laboratory workup showed WBC elevated at 14,000 with no significant differential changes, BMP was unremarkable. Troponin x [address] of the chest shows no pulmonary embolism, mild bibasilar opacity worrisome for atelectasis versus early pneumonitis Patient has been admitted for further chest pain workup Hospital Course: Charity Hanks is a pleasant 43 year old female with a past medical history significant for hypertension, chronic tobacco use, CAD status post right PDA PCI 9 days ago who was admitted to the [facility] on 12/16/2023 for chest pain. Charity Hanks presented to the ED with chief complaint chest pressure and shortness of breath. Cardiology was consulted and started a new medications to help relieve the chest pain/pressure. Please follow up with Dr. Patel in the clinic for further management. Troponins trend flat, EKG is negative, no acute distress, chest pain resolved, tolerating p.o. diet, and ambulating independently. She is hemodynamically stable and Dr. Patel has deemed her appropriate for discharge. On 12/16/2023, Charity was seen on morning rounds and deemed medically stable for discharge. Charity was discharged with instructions to schedule follow-up appointments with Dr. Patel and PCP. Charity was provided prescriptions for Carafate, Protonix, and Imdur. The patient was given the opportunity to ask questions and reported no further questions. Furthermore, all questions were answered to the best of my ability. A copy of this discharge summary will be sent to the above providers to facilitate continuity of care. Physical Exam General: Alert and Oriented x3, NAD, Cooperative HEENT: Atraumatic, Normocephalic, PERRLA Neck: 2+ carotid pulse no bruit, JVD not distended Respiratory: Clear to auscultation bilaterally, Normal air movement Cardiovascular: RRR, Normal S1 S2 present, no murmur noted Gastrointestinal: Normal bowel sounds, Soft and benign on palpation, non-tender Musculoskeletal: No clubbing, No swelling Integumentary: No rashes, No breakdown Neurological: Normal speech, Normal strength at 5/5 x4 extr, Normal tone, Sensation intact, Cranial nerves 3-12 intact Vital Signs/Physical Exam: Temp Pulse Resp BP Pulse Ox 97.2 F 76 20 114/79 98 12/16/23 11:21 12/16/23 11:21 12/16/23 11:21 12/16/23 11:21 12/16/23 11:21 Laboratory Data at Discharge: WBC 9.90 thou/uL (4.3-10.9) 12/16/23 07:50 Hgb 11.9 g/dL (12.0-15.0) L 12/16/23 07:50 Hct 36.4 % (36.0-45.0) 12/16/23 07:50 Plt Count 324 thou/uL (152-406) 12/16/23 07:50 Sodium 138 mEq/L (136-145) 12/16/23 07:50 Potassium 4.2 mEq/L (3.5-5.1) D 12/16/23 07:50 BUN 9 mg/dL (7-18) 12/16/23 07:50 Creatinine 0.61 mg/dL (0.55-1.02) 12/16/23 07:50 Glucose 118 mg/dL (74-106) H 12/16/23 07:50 Phosphorus 3.2 mg/dL (2.5-4.9) 12/16/23 07:50 Magnesium 2.1 mg/dL (1.6-2.4) 12/16/23 07:50 Home Medications: Doxepin HCl 3 mg PO BEDTIME 12/05/23 Ketorolac Tromethamine 1 tab PO Q6HP PRN 12/05/23 Lorazepam [Ativan] 1 mg PO BID 12/05/23 Sertraline HCl 150 mg PO DAILY 12/05/23 Suvorexant [Belsomra] 20 mg PO BEDTIME 12/05/23 hydrOXYzine pamoate [Hydroxyzine Pamoate] 1 tab PO BEDTIME PRN PRN 12/05/23 Aspirin [Adult Aspirin Regimen] 81 mg PO DAILY 30 Days #30 tab 12/06/23 Atorvastatin Calcium 40 mg PO DAILY 30 Days #30 tab 12/06/23 Clopidogrel Bisulfate [Plavix*] 75 mg PO DAILY 30 Days #30 tab 12/06/23 Mometasone/Formoterol [Dulera 200 Mcg/5 Mcg Inhaler] 2 puff IH BID 30 Days #1 inhaler 12/06/23 Isosorbide Mononitrate [Isosorbide Mononitrate ER] 30 mg PO DAILY 30 Days #30 tab 12/16/23 Pantoprazole Sodium [Protonix] 40 mg PO DAILY 30 Days #30 tab 12/16/23 Sucralfate [Carafate] 1 gm PO TID 10 Days #30 tab 12/16/23 New Medications: Sucralfate [Carafate] 1 gm PO TID 10 Days #30 tab Isosorbide Mononitrate [Isosorbide Mononitrate ER] 30 mg PO DAILY 30 Days #30 tab Pantoprazole Sodium [Protonix] 40 mg PO DAILY 30 Days #30 tab Physician Discharge Instructions: Charity Hanks presented to the ED with chief complaint chest pressure and shortness of breath. Cardiology was consulted and started a new medications to help relieve the chest pain/pressure. Please follow up with Dr. Patel in the clinic for further management. 1. Please call and schedule a follow-up appointment with your PCP in 3-5 days - Please follow-up with your PCP for medication refills/adjustments 2. Please call and schedule a follow-up appointment with Dr. Patel in 3-5 days -Imdur 30 mg daily, Dr. Patel will make adjustments to this medication if needed 3. Continue heart healthy diet 4. activity restrictions, do not lift greater than 8 pounds, IE. a jug of milk 5. Return to the ED if symptoms worsen PROBLEM: (list out Acute Problems for the Current visit) GOAL: Clear understanding of disease process INSTRUCTIONS: Charity Hanks presented to the ED with chief complaint chest pressure and shortness of breath. Cardiology was consulted and started a new medications to help relieve the chest pain/pressure. Please follow up with Dr. Patel in the clinic for further management. 1. Please call and schedule a follow-up appointment with your PCP in 3-5 days - Please follow-up with your PCP for medication refills/adjustments 2. Please call and schedule a follow-up appointment with Dr. Patel in 3-5 days -Imdur 30 mg daily, Dr. Patel will make adjustments to this medication if needed 3. Continue heart healthy diet 4. activity restrictions, do not lift greater than 8 pounds, IE. a jug of milk 5. Return to the ED if symptoms worsen Diet: heart halthy Activity: no lifting over 8 pounds DME DME: Date Ordered: Name of Company: [employer] Services Needed: Name of Company: Date or Referral: IMMUNIZATION Influenza Vaccine Indicated: Influenza Vaccine Given: Date Given: Pneumonia Vaccine Indicated: No Pneumonia Vaccine Given: Date Given: New medications Imdur 30 mg daily Followup: Riddhi Freitas FNP [Primary Care Provider] -
[2023-12-16] MEDS ORDERED: LORAZEPAM 0.5 MG TABLET PO PRN (21:00)
--- NOTE | 2023-12-17 15:12 | EKG ---
Test Date: 2023-12-15 Test Time: 20:31:07 Medical Office Asst: MEL MEASUREMENT RESULTS: Intervals: Rate: 112 SD: 150 QRSD: 78 QT: 326 QTc: 444 [place]: P: 50 SD: 150 QRS: -49 T: 56 INTERPRETIVE STATEMENTS: Sinus tachycardia Right atrial enlargement Left axis deviation Low voltage QRS Inferior infarct, age undetermined Cannot rule out Anterior infarct, age undetermined Abnormal ECG Compared to ECG 12/04/2023 19:48:58 Low QRS voltage now present Myocardial infarct finding still present Electronically Signed On 12-17-23 15:06:59 CDT by Neil Arthur
== END 2023-12-16 12:45 | disposition home or self-care (01) ==
LOC: ER 20:27 → ERHOLD 12-16 00:21 → 3RD-ICU 12-16 01:15
PROVIDERS: ADMIT Internal Medicine; ATTEND Hospitalist
DX: R07.9 Chest pain, unspecified (principal); I10 Essential (primary) hypertension; I25.10 Atherosclerotic heart disease of native coronary artery without angina pectoris; R00.0 Tachycardia, unspecified; R06.02 Shortness of breath; F17.210 Nicotine dependence, cigarettes, uncomplicated; Z79.82 Long term (current) use of aspirin; Z98.890 Other specified postprocedural states
CPT/HCPCS: 93005; 85025 ×2; 80048 ×2; 36415; 83735; 84100; 84484 ×3; 83880; 71275; 71045; 99285; Q9967; J1650; J2270 ×2; J1170; J2405 ×2; J0696; J3480; G0378 ×2

== ENCOUNTER 2024-01-11 00:46 | Observation (INO) | payer OTHER ==
--- OUTSIDE RECORDS SUMMARY | 2024-01-11 01:00 | XMS REPORT | Continuity of Care Document ---
Author Name Unknown Address [address] [facility] [address] [place] [address] [facility] thconnect Address [address] [facility]. [address] [place] [address] Support Name Relationship Address Phone RACHEL CASH Father Unknown Unavailable PHYSICIAN, NO Primary Care Physician Unknown Unav ailable MD MORA POLLOCK A Emergency Provider [address] [place] [address] JAN COX natural parent [address] [address] MD SHERIDAN MCMANUS Emergency Provider [facility], [place] [address] CHARITY ROCA Guarantor [address] [place] [address] MD RIDDHI [place] [address] MD AN IRIZARRY Emergency Provider [facility], [place] [address] MD CARLOS SOLANO A Primary Care Physician [address] [facility] 3 [place] [address] OTHER, ENTER NAME IN NOTES Primary Care Physician Unknown Unavailable MD Arelis Navarro Emergency Provider [address] [place] [address] MD SHAN BUSCH Attending Provider [address] [place] [address] PIYUSH JUAREZ parent [address] [place] [address] 1 Personal Relationship Unknown Unavai lable Unavailable Personal Relationship Unknown Unavai lable Leyda Villa Mother Unknown Unavailable Rachel Cox Father [address] [place] [address] one else per patient, No Emergency Contact Unknown Unavailable Rachel Cox Father [address] [place] [address] RACHEL COX F [address] [place] [address] PATIENT, NO ONE ELSE PER Personal Relationship Unknown Unavailable Care Team Providers Care Interventional Radiologist Name Role Phone JOANNE MONTES Primary Care Physician Unavailab FARTUN Bernal Attending Clinician Unavailable GISELLE OSORIO Attending Clinician Unavailable JOANNE MONTES Attending Clinician Unavailable LAB90 Attending Clinician Unavailable COSMO Attending Clinician Unavailable OLIVIA GARCIA Attending Clinician Unavailable Olivia Garcia MD Attending Clinician + [phone] SHERIDAN MCMANUS Attending Clinician UnavailROBERTO Melgar Attending Clinician Unavailable Roberto Richards MD Attending Clinician +[phone] SHAN BUSCH Attending Clinician Unavailable RIDDHI MYLES Attending Clinician Unav robertable AN IRIZARRY Attending Clinician Unavailable NARAYAN NARVAEZ Attending Clinician Unavailable Narayan Narvaez DO Attending Clinician +[phone] Saleem EDWARD Attending Clinician Unavailable Saleem Perez Attending Clinician [phone] BRITTNI PADGETT S Attending Clinician Unavailable Brittni Elam S Attending Clinician [phone] JESÚS MONTERO Attending Clinician Unavailable Leeanne Wise NP Attending Clinician + Jesús Montero MD Attending Clinician +[phone] FELTON Attending Clinician Unavailable MELIDA LONGORIA Attending Clinician Unavailable Melida Longoria MD Attending Clinician +[phone] WIL MCQUEEN Attending Clinician Unavailable Mcqueen JEAN MARIESauln R Attending Clinician + [phone] DEE WANG Attending Clinician Unavaila angel Wang AT HOME INDEPENDENT CALL CENTER AGENT, Dee Poncho Attending Clinician [phone] Doctor Unassigned, [employer] Attending Clinician U navailCEM Mccullough Attending Clinician Unavailable Cem Choi MD Attending Clinician [phone] Ralph RAMIREZ, Shelley Ayala Attending Clinician + [phone] Mo AT HOME INDEPENDENT CALL CENTER AGENT, Bal Attending Clinician + [phone] BAL HASSAN Attending Clinician Unavailable Ebviral AT HOME INDEPENDENT CALL CENTER AGENT, Tremaine Attending Clinician [phone] TREMAINE BECERRA Attending Clinician Unavailable LEEANNE WISE Attending Clinician Unavailable MORA POLLOCK Attending Clinician Unavailable Claudia MEDINAP, Best Odonnell Attending Clinician [phone] BEST TAYLOR Attending Clinician Unavailable Marbella Rizo RN Attending Clinician Unavailab bailee MEDINAP, Abdias Attending Clinician [phone] ABDIAS ROBERTSON Attending Clinician Unavailable Silver RAMIREZ, Kamryn Ayala Attending Clinician Unavail able Bushra Rios DO Attending Clinician +[phone] BUSHRA RIOS Attending Clinician Unavailab SINCERE morocho [...] Unavailable RIDDHI MYLES Admitting Clinician Unav ailable , NARAYAN Admitting Clinician Unavailable JESÚS MONTERO Admitting Clinician Unavailable Jesús Montero MD Admitting Clinician [phone] LA NENACHRISTELLE Admitting Clinician Unavailable MELIDA LONGORIA Admitting Clinician [...] Source [employer] 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 [id number] 2023 00:00:00 [employer] 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 [id number] 2023 00:00:00 2023 00:00:00 [facility] BC[employer] BLUE ADVANTAGE O [id number] 2020 00:00:00 Problems Condition Name Condition Details Condition Category Status Onset Date Resolution Date Last Treatment Date Treating Clinician Comments Source Coronary artery disease Coronary artery disease Disease Active 12-12 00:00: 00 Kellee Parrisha khris Status post arterial stent Status post arterial stent Disease Active 12-12 00:00: 00 Kellee Leiva Externa khris MICAH (generaliz ed anxiety disorder) MICAH (generaliz ed anxiety disorder) Disease Active 12-02 00:00: 00 Kellee Leiva Externa khris Severe episode of recurrent major depressive disorder, 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, 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) Disease Active 12-02 00:00: 00 Kellee Leiva Externa khris PTSD (post-trau matic stress disorder) PTSD (post-trau matic stress disorder) Disease Active 12-02 00:00: 00 Kellee Leiva Externa khris Chest pain, unspecifie d type Chest pain, unspecifie d type Disease Active 02-15 00:00: 00 [facility] Elevated brain natriureti c peptide (BNP) level Elevated brain natriureti c peptide (BNP) level Disease Active 2020-07 0-02 00:00: 00 [facility] Cigarette smoker Cigarette smoker Disease Active 2020-07 0-02 00:00: 00 [facility] Family history of early CAD Family history of early CAD Disease Active 2020-07 0- 00:00: 00 [facility] Primary hypertensi on Primary hypertensi on Disease Active 2020-07 0- 00:00: 00 [facility] Elevated brain natriureti c peptide (BNP) level Elevated brain natriureti c peptide (BNP) level Disease Active 2020-07 0- 00:00: 00 [facility] Snores Snores Disease Active 2020-07 0- 00:00: 00 [facility] Chest pain Chest pain Disease Active 2020-07 0- 00:00: 00 [facility] Morbid obesity with body mass index of 40.0-49.9 Morbid obesity with body mass index of 40.0-49.9 Disease Active 2020-07 0- 00:00: 00 [facility] No known active problems No known active problems Disease [facility] Allergies, Adverse Reactions, Alerts Allergy Name Allergy Type Status Severity Reaction(s) Onset Date Inactive Date Treating Clinician Comments Source NO KNOWN ALLERGIE S Drug Class Active [facility] Social History Social Habit Start Date Stop Date Quantity Comments Source History of tobacco use 2018-10-27 00:00:00 Cigarette Smoker Kellee Buckley - External Sexual orientation Saleem Buckley - External Gender identity [facility] Alcoholic beverage intake 2023-12-13 00:00:00 2023-12-13 00:00:00 Current drinker of alcohol (finding) Kellee Buckley - External History of Social function 2023-10-28 00:00:00 2023-10-28 00:00:00 Kellee Buckley - External Alcohol Comment 2023-10-28 00:00:00 2023-10-28 00:00:00 rarely Kellee Bukcley - External Cigarettes smoked current (pack per day) - Reported 2023-10-28 00:00:00 2023-10-28 00:00:00 Kellee Davies Cigarette pack-years 2023-10-28 00:00:00 2023-10-28 00:00:00 Kellee Leiva External Tobacco use and exposure 2023-10-28 00:00:00 2023-10-28 00:00:00 Smokeless tobacco non-user Kellee Davies Tobacco Comment 2023-02-15 00:00:00 2023-02-15 00:00:00 In the process of quitting. Now smokes 5 cigarettes/ day from 2 packs per day [facility] Exposure to SARS-CoV-2 (event) 2021-12-30 00:00:00 2022-01-09 16:34:00 Unable to assess [facility] Education - What is the highest level of school you have completed or the highest degree you have received? 2021-04-07 00:00:00 2021-04-07 00:00:00 High school graduate [facility] Sex assigned at 1980 00:00:00 1980 00:00:00 Kellee Davies Smoking Status Start Date Stop Date Source Smokes tobacco daily 2023-10-28 00:00:00 Kellee Davies Unknown if ever smoked [facility] Medications Ordered Medication Name Filled Medication Name Start Date Stop Date Current Medication? Ordering Clinician Indication Dosage Frequency Signature (SIG) Comments Components Source hydrOXYzine Pamoate 50 MG oral Capsule 12-12 09:19: 23 Yes [id number] 50mg Q.5D Take 1 capsule (50 mg total) by mouth 2 times daily as needed for anxiety. Kellee pinedo Lorazepam (ATIVAN) 0.5 MG oral Tablet tablet 12-12 00:00: 00 Yes [id number] .5mg Q.5D Take 1 tablet (0.5 mg total) by mouth 2 times daily as needed for anxiety. Kellee pinedo Aspirin Low Dose 81 MG oral Tablet Delayed Response 12-05 00:00: 00 Yes [id number] 81mg Take 1 tablet (81 mg total) by mouth daily. Kellee pinedo Atorvastati n Calcium 40 MG oral Tablet 12-05 00:00: 00 Yes [id number] 40mg Take 1 tablet (40 mg total) by mouth daily. Kellee pinedo Clopidogrel Bisulfate (PLAVIX) 75 MG oral Tablet 12-05 00:00: 00 Yes [id number] 75mg Take 1 tablet (75 mg total) by mouth daily. Kellee pinedo Mometasone Furo-Formot camelia Fum (Dulera) 200-5 MCG/ACT inhalation Aerosol 12-05 00:00: 00 Yes TWICE DAILY Kellee pinedo Ferrous Sulfate 325 (65 Fe) MG oral Tablet 12-04 00:00: 00 Yes [id number] 325mg Take 1 tablet (325 mg total) by mouth daily (with breakfast) . Kellee pinedo Vitamin D, Ergocalcife rol, 1.25 MG (89415 UT) oral Capsule 12-04 00:00: 00 Yes [id number] 27262S Take 1 capsule (50,000 units total) by mouth once a week. Kellee pinedo Mirtazapine 45 MG oral Tablet 12-02 10:49: 07 12-02 00:00 :00 No [id number] 45mg Take 1 tablet (45 mg total) by mouth nightly. Kellee pinedo hydrOXYzine Pamoate 50 MG oral Capsule 12-02 10:49: 04 Yes [id number] 50mg Q.5D Take 1 capsule (50 mg total) by mouth 2 times daily as needed for anxiety. Kellee pinedo Ascorbic Acid 500 MG oral Tablet 12-02 10:48: 55 12-02 00:00 :00 No 50mg Take 50 mg by mouth. Kellee pinedo Suvorexant (Belsomra) 20 MG oral Tablet 12-02 00:00: 00 Yes [id number] 1{tbl} Take 1 tablet by mouth nightly. Kellee pinedo Lorazepam 1 MG oral Tablet 12-02 00:00: 00 12-12 00:00 :00 No [id number] 1mg Q.5D Take 1 tablet (1 mg total) by mouth 2 times daily as needed for anxiety. Kellee pinedo Doxepin HCl 3 MG oral Tablet 11-27 00:00: 00 Yes [id number] 1{tbl} TAKE 1 TABLET BY MOUTH EVERY DAY AT NIGHT Kellee pinedo Aripiprazol e 5 MG oral Tablet 11-27 00:00: 00 Yes [id number] 5mg TAKE 1 TABLET (5 MG TOTAL) BY MOUTH DAILY. Kellee pinedo Mirtazapine 45 MG oral Tablet 10-28 13:20: 59 Yes [id number] 45mg Take 1 tablet (45 mg total) by mouth nightly. Kellee pinedo Ascorbic Acid 500 MG oral Tablet 10-28 13:20: 47 Yes 50mg Take 50 mg by mouth. Kellee pinedo hydrOXYzine Pamoate 50 MG oral Capsule 10-28 13:20: 47 10-28 00:00 :00 No [id number] 50mg Q.5D Take 1 capsule (50 mg total) by mouth every 4 to 6 hours as needed. Kellee pinedo Sertraline HCl 150 MG oral Capsule 10-28 13:20: 03 10-28 00:00 :00 No 150mg Take 150 mg by mouth daily. Kellee pinedo Doxepin HCl 3 MG oral Tablet 10-28 00:00: 00 Yes [id number] 1{tbl} Take 1 tablet by mouth nightly. Kellee pinedo Aripiprazol e 5 MG oral Tablet 10-28 00:00: 00 Yes [id number] 5mg Take 1 tablet (5 mg total) by mouth daily. Kellee pinedo Suvorexant 10 MG oral Tablet 10-28 00:00: 00 12-02 00:00 :00 No [id number] 1{tbl} Take 1 tablet by mouth nightly. Kellee pinedo Sertraline HCl 50 MG oral Tablet 10-26 00:00: 00 Yes [id number] Kellee Ariasazra pinedo HYDROcodone -acetaminop hen (NORCO) 10-325 mg tablet 1 tablet 10-10 06:15: 00 10-10 05:25 :00 No 1{tbl} 1 tablet, Oral, ONCE NOW, 1 dose, On Sat10/11/23 at 0115, [facility] iop[facility] (ISOVUE 370-500 mL) injection 100 mL 10-10 05:00: 00 10-10 05:00 :00 No [id number] 100mL 100 mL, Intravenou s, ONCE, 1 dose, On Sat10/11/23 at 0000, Routine [facility] ketorolac (TORADOL) injection 30 mg 10-10 04:30: 00 10-10 03:29 :00 No 30mg 30 mg, Slow IV Push, ONCE, 1 dose, On Sat10/10/23 at 2330, Routine [facility] NaCl 0.9% (NS) IV infusion 1,000 mL 10-10 04:15: 00 10-10 05:18 :00 No 1000mL at 999 mL/hr, Intravenou s, ONCE, 1 dose, On Sat10/10/23 at 2315, Routine [facility] ondansetron (ZOFRAN (PF)) injection 4 mg 10-10 04:00: 00 10-10 03:54 :00 No 4mg 4 mg, Slow IV Push, ONCE, 1 dose, On Sat10/10/23 at 2300, [facility] [facility] morpHINE (4 mg/mL) injection 4 mg 10-10 04:00: 00 10-10 03:54 :00 No 4mg 4 mg, Slow IV Push, ONCE, 1 dose, On Esperanza 10/10/23 at 2300, STAT [facility] traMADoL (ULTRAM) 50 mg tablet 10-10 00:00: 00 Yes [id number] 50mg Take 1 tablet by mouth every 6 (six) hours as needed for Pain (scale 7-10). Indication s: acute pain [facility] phenazopyri dine 200 mg tablet 10-10 00:00: 00 Yes [id number] 200mg Take 1 tablet by mouth in the morning and 1 tablet at noon and 1 tablet in the evening. [facility] ondansetron (ZOFRAN) 4 mg tablet 10-10 00:00: 00 Yes [id number] 4mg Take 1 tablet by mouth every 8 (eight) hours as needed for Nausea and Vomiting (N/V). [facility] ketorolac 10 mg tablet 10-10 00:00: 00 Yes [id number] 10mg Take 1 tablet by mouth every 6 (six) hours as needed for Pain (scale 7-10). [facility] Sertraline HCl 100 MG oral Tablet 10-09 00:00: 00 Yes [id number] 100mg Take 1 tablet (100 mg total) by mouth every morning. Kellee pinedo acetaminoph en (TYLENOL) tablet 975 mg 2022-07 04:15: 00 07-02 03:11 :00 No 975mg 975 mg, Oral, ONCE, 1 dose, On Sat07/01/23 at 2215, RO[place] [facility] dicyclomine (BENTYL) tablet 20 mg 2022-07 03:15: 00 07-02 03:11 :00 No 20mg 20 mg, Oral, ONCE, 1 dose, On Sat07/01/23 at 2115, RO[place] [facility] ketorolac (TORADOL) injection 30 mg 2022-07 03:15: 00 07-02 02:32 :00 No 30mg 30 mg, Slow IV Push, ONCE, 1 dose, On Sat07/01/23 at 2115, Routine [facility] ondansetron (ZOFRAN (PF)) injection 4 mg 2022-07 03:00: 00 07-02 02:03 :00 No 4mg 4 mg, Slow IV Push, ONCE, 1 dose, On Sat07/01/23 at 2100, [place] [facility] NaCl 0.9% (NS) bolus infusion 1,000 mL 2022-07 03:00: 00 07-02 04:10 :00 No 1000mL at 999 mL/hr, 1,000 mL, IV Infusion, ONCE, 1 dose, On Sat07/01/23 at 2100, STAT [facility] dicyclomine 20 mg tablet 2022-07 00:00: 00 Yes [id number] 20mg Take 1 tablet by mouth 4 (four) times daily. [facility] ondansetron 4 mg disintegrat ing tablet 2022-07 00:00: 00 Yes [id number] 4mg Take 1 tablet by mouth every 4 (four) hours as needed for Nausea and Vomiting (N/V). [facility] Alprazolam 1 MG oral Tablet 2022-07 00:00: 00 12-12 00:00 :00 No [id number] 2mg Take 2 tablets (2 mg total) by mouth 2 times daily. Kellee pinedo Pantoprazol e Sodium 20 MG oral Tablet Delayed Response 2022-07 00:00: 00 12-02 00:00 :00 No Take by mouth. Kellee pinedo ketorolac (TORADOL) injection 15 mg 2022-07 01:00: 00 05-10 00:09 :00 No 15mg 15 mg, Slow IV Push, ONCE, 1 dose, [facility] Sat05/09/23 at 2000[facility]ine (COMPAZINE) injection 5 mg 2022-07 23:30: 00 05-09 22:48 :00 No 5mg 5 mg, Slow IV Push, ONCE, 1 dose, On Sat05/09/23 at 1830, [facility] diphenhydrA MINE (BENADRYL) injection 25 mg 2022-07 22:45: 00 05-09 22:48 :00 No 25mg 25 mg, Slow IV Push, ONCE, 1 dose, On Sat05/09/23 at 1745, STAT [facility] HYDROcodone -acetaminop hen (NORCO) 10-325 mg tablet 1 tablet 2022-07 02:00: 00 05-01 01:04 :00 No 1{tbl} 1 tablet, Oral, ONCE, 1 dose, On Sat04/30/23 at 2100, Routine [facility] iopamidol (ISOVUE 370-500 mL) injection 100 mL 2022-07 00:45: 00 05-01 00:45 :00 No [id number] 100mL 100 mL, Intravenou s, ONCE, 1 dose, On Sat04/30/23 at 1945, Routine [facility] NaCl 0.9% (NS) bolus infusion 1,000 mL 2022-07 00:00: 00 05-01 00:45 :00 No 1000mL at 999 mL/hr, 1,000 mL, IV Piggyback, ONCE, 1 dose, On Sat04/30/23 at 1900, STAT [facility] proCHLORper azine (COMPAZINE) injection 5 mg 2022-07 23:45: 00 04-30 23:09 :00 No 5mg 5 mg, Slow IV Push, ONCE, 1 dose, On Sat04/30/23 at 1845, [place] [facility] diphenhydrA MINE (BENADRYL) injection 25 mg 2022-07 23:00: 00 04-30 23:09 :00 No 25mg 25 mg, Slow IV Push, ONCE, 1 dose, On Sat04/30/23 at 1800, STAT [facility] dicyclomine 20 mg tablet 2022-07 00:00: 00 07-01 00:00 :00 No [id number] 20mg Take 1 tablet by mouth 4 (four) times daily. [facility] acetaminoph en (TYLENOL) tablet 1,000 mg 2022-07 02:45: 00 04-17 02:43 :00 No 1000mg 1,000 mg, Oral, ONCE, 1 dose, On Sat04/16/23 at 2145, [place] [facility] ondansetron (ZOFRAN (PF)) injection 4 mg 2022-07 0-03 03:15: 00 04-09 02:13 :00 No 4mg 4 mg, Slow IV Push, ONCE, 1 dose, On 04/08/23 at 2215, [facility] (BENTYL) tablet 20 mg 2022-07 0 03:15: 00 04-09 02:16 :00 No 20mg 20 mg, Oral, ONCE, 1 dose, On Sat04/08/23 at 2215, Routine [facility] ondansetron (ZOFRAN (PF)) injection 4 mg 2022-07 002 23:45: 00 04-08 23:16 :00 No 4mg 4 mg, Slow IV Push, ONCE, 1 dose, On Sat04/08/23 at 1845, [facility] mor[facility]INE (2 mg/mL) injection 4 mg 2022-07 23:45: 00 04-08 23:45 :00 No 4mg 4 mg, Slow IV Push, ONCE, 1 dose, On Sat04/08/23 at 1845, STAT [facility] ondansetron 4 mg disintegrat ing tablet 2022-07 0-02 00:00: 00 07-01 00:00 :00 No [id number] 4mg Take 1 tablet by mouth every 8 (eight) hours as needed for Nausea and Vomiting (N/V). [facility] dicyclomine 20 mg tablet 2022-07 0-02 00:00: 00 04-30 00:00 :00 No [id number] 20mg Take 1 tablet by mouth 4 (four) times daily. [facility] acetaminoph en (TYLENOL) tablet 1,000 mg 03-10 04:30: 00 03-10 04:29 :00 No 1000mg 1,000 mg, Oral, ONCE, 1 dose, On 03/09/23 at 2330, [place] [facility] iopamidol (ISOVUE 370-500 mL) injection 85 mL 03-10 04:30: 00 03-10 04:30 :00 No [id number] 85mL 85 mL, Intravenou s, ONCE, 1 dose, On 03/09/23 at 2330, Routine [facility] FENTanyl PF (SUBLIMAZE (PF)) injection 75 mcg 03-10 04:00: 00 03-10 02:58 :00 No 75ug 75 mcg, Slow IV Push, ONCE, 1 dose, On 03/09/23 at 2300, STAT [facility] NaCl 0.9% (NS) IV infusion 1,000 mL 03-10 03:00: 00 Yes 1000mL at 20 mL/hr, IV Infusion, CONTINUOUS , Starting on 03/09/23 at 2200, Until Discontinu ed, Routine [facility] ondansetron (ZOFRAN (PF)) injection 4 mg 03-10 02:00: 00 03-10 02:01 :00 No 4mg 4 mg, Slow IV Push, ONCE, 1 dose, On 03/09/23 at 2100, [place] [facility] morpHINE (4 mg/mL) injection 4 mg 03-10 02:00: 00 03-10 02:01 :00 No 4mg 4 mg, Slow IV Push, ONCE, 1 dose, On 03/09/23 at 2100, STAT [facility] polyethylen e glycol 3350 (MIRALAX) 17 gram powder 03-09 00:00: 00 Yes [id number] 1{packe t} Take 1 Packet by mouth once daily as needed for Constipati on. [facility] Simethicone 125 mg 03-09 00:00: 00 Yes [id number] 125mg Take 1 capsule by mouth after meals and at bedtime as needed for Gas. [facility] iopamidol (ISOVUE 370-500 mL) injection 100 mL 03-02 06:15: 00 03-02 06:15 :00 No [id number] 100mL 100 mL, Intravenou s, ONCE, 1 dose, On 03/02/23 at 0115, Routine [facility] NaCl 0.9% (NS) IV infusion 1,000 mL 03-02 05:15: 00 Yes 1000mL at 999 mL/hr, Intravenou s, CONTINUOUS , Starting on 03/02/23 at 0015, Until Discontinu ed, Routine [facility] ketorolac (TORADOL) injection 30 mg 03-02 05:15: 00 03-02 04:20 :00 No 30mg 30 mg, Slow IV Push, ONCE, 1 dose, On 03/02/23 at 0015, Routine [facility] ondansetron (ZOFRAN (PF)) injection 4 mg 03-02 05:00: 00 03-02 05:24 :00 No 4mg 4 mg, Slow IV Push, ONCE, 1 dose, On 03/02/23 at 0000, [place] [facility] morpHINE (4 mg/mL) injection 4 mg 03-02 05:00: 00 03-02 05:24 :00 No 4mg 4 mg, Slow IV Push, ONCE, 1 dose, On 03/02/23 at 0000, STAT [facility] ondansetron (ZOFRAN (PF)) injection 4 mg 03-02 04:15: 00 03-02 04:21 :00 No 4mg 4 mg, Slow IV Push, ONCE, 1 dose, On Sat03/01/23 at 2315, [place] [facility] Ondansetron HCl 4 MG oral Tablet 03-02 00:00: 00 Yes [id number] 4mg Q.[id number] 3D Take 1 tablet (4 mg total) by mouth every 8 hours as needed. Kellee pinedo dicyclomine 20 mg tablet 03-02 00:00: 00 04-30 00:00 :00 No [id number] 20mg Take 1 tablet by mouth every 6 (six) hours as needed for Abdominal pain. [facility] metoclopram tracy HCl (REGLAN) injection 10 mg 02-18 06:45: 00 02-18 06:43 :00 No 10mg 10 mg, Slow IV Push, ONCE, 1 dose, On Sat02/18/23 at 0145, [place] [facility] morpHINE (4 mg/mL) injection 4 mg 02-18 05:30: 00 02-18 05:28 :00 No 4mg 4 mg, Slow IV Push, ONCE, 1 dose, On Sat02/18/23 at 0030, STAT [facility] ondansetron (ZOFRAN (PF)) injection 4 mg 02-18 05:30: 00 02-18 05:28 :00 No 4mg 4 mg, Slow IV Push, ONCE, 1 dose, On Sat02/18/23 at 0030, [place] [facility] NaCl 0.9% (NS) bolus infusion 1,000 mL 02-18 05:30: 00 02-18 05:15 :00 No 1000mL at 999 mL/hr, 1,000 mL, IV Infusion, ONCE, 1 dose, On Sat02/18/23 at 0030, STAT [facility] proMETHazin e (PHENERGAN) 25 mg in NaCl 0.9% (NS) 50 mL IV piggyback 02-18 04:30: 00 02-18 04:28 :00 No 25mg 25 mg, IV Piggyback, ONCE, 1 dose, On Sat02/17/23 at 2330, [place] [facility] proMETHazin e 25 mg tablet 02-18 00:00: 00 Yes [id number] 25mg Take 1 tablet by mouth every 6 (six) hours as needed for Nausea and Vomiting (N/V). [facility] escitalopra m oxalate (LEXAPRO) 5 mg tablet 02-17 16:23: 24 Yes 10mg Take 2 tablets by mouth at bedtime. [facility] topiramate (TOPAMAX) 200 mg tablet 02-17 16:23: 24 Yes 200mg Take 1 tablet by mouth every evening. [facility] bupropion HCl (WELLBUTRIN ORAL) 02-17 16:23: 24 Yes 150mg Take 150 mg by mouth every morning. [facility] OLANZapine (ZYPREXA) 15 mg tablet 02-17 16:23: 24 Yes 15mg Take 1 tablet by mouth every evening. [facility] ALPRAZOLAM ORAL 02-17 16:23: 24 Yes 2mg Take 2 mg by mouth in the morning and 2 mg in the evening. [facility] melatonin 10 mg Tab 02-17 16:23: 24 Yes 1{tbl} Take 1 tablet by mouth at bedtime. [facility] trazodone HCl (TRAZODONE ORAL) 02-17 16:23: 24 Yes 400mg Take 400 mg by mouth at bedtime. [facility] lactated ringers IV infusion 1,000 mL 02-17 02:15: 00 02-17 22:14 :00 No 1000mL at 100 mL/hr, 1,000 mL, IV Infusion, CONTINUOUS , Starting on 02/16/23 at 2115, Until 02/17/23 at 1714, Routine [facility] traZODone (DESYREL) tablet 400 mg 02-17 02:00: 00 Yes 400mg 400 mg, Oral, QHS, First dose on 02/16/23 at 2100, Until Discontinu ed [facility] melatonin (MELATIN) tablet 9 mg 02-17 02:00: 00 Yes 9mg 9 mg, Oral, QHS, First dose on 02/16/23 at 2100, Until Discontinu ed [facility] morpHINE (2 mg/mL) injection 2 mg 02-17 01:07: 50 03-01 01:06 :50 No 2mg 2 mg, Slow IV Push, Q4HPRN, Starting on 02/16/23 at 2006, Until Esperanza 02/28/23 at 2006, Routine, Pain (scale 7-10) [facility] OLANZapine (ZyPREXA) tablet 15 mg 02-16 22:00: 00 Yes 15mg 15 mg, Oral, QPM, First dose on 02/16/23 at 1700, Until Discontinu ed, Routine [facility] buPROPion XL (WELLBUTRIN XL) tablet 150 mg 02-16 14:00: 00 Yes 150mg 150 mg, Oral, DAILY, First dose on 02/16/23 at 0900, Until Discontinu ed [facility] enoxaparin (LOVENOX) injection 40 mg 02-16 14:00: 00 Yes 40mg 40 mg, Subcutaneo us, DAILY, First dose on 02/16/23 at 0900, Until Discontinu ed, Routine [facility] methocarbam oL (ROBAXIN) tablet 500 mg 02-16 06:04: 59 Yes 500mg 500 mg, Oral, Q6HPRN, Starting on 02/16/23 at 0104, Until Discontinu ed, Routine, Muscle Spasms [facility] ALPRAZolam (XANAX) tablet 2 mg 02-16 06:03: 54 Yes 2mg 2 mg, Oral, TIDPRN, Starting on 02/16/23 at 0103, Until Discontinu ed, Anxiety [facility] lactated ringers IV infusion 1,000 mL 02-16 03:15: 00 02-16 23:14 :00 No 1000mL at 100 mL/hr, 1,000 mL, IV Infusion, CONTINUOUS , Starting on Sat02/15/23 at 2215, Until 02/16/23 at 1814, Routine [facility] morpHINE (2 mg/mL) injection 2 mg 02-16 03:07: 02 02-17 01:08 :14 No 2mg 2 mg, Slow IV Push, Q4HPRN, Starting on Sat02/15/23 at 2207, Until 02/16/23 at 2008, Routine, Pain (scale 7-10) [facility] traMADoL (ULTRAM) tablet 50 mg 02-16 03:06: 59 02-18 03:05 :59 No 50mg 50 mg, Oral, Q8HPRN, Starting on Sat02/15/23 at 2206, Until Sat02/17/23 at 2205, Routine, Pain (scale 4-6) [facility] acetaminoph en (TYLENOL) tablet 1,000 mg 02-16 03:06: 50 Yes 1000mg 1,000 mg, Oral, Q6HPRN, Starting on Sat02/15/23 at 2206, Until Discontinu ed, Routine, Pain (scale 1-3), Temp > 38 C [facility] ALPRAZolam (XANAX) 1 mg tablet 02-16 01:09: 19 02-15 00:00 :00 No 1mg Take 1 tablet by mouth in the morning and 1 tablet in the evening. [facility] iopamidol (ISOVUE 370-500 mL) injection 80 mL 02-16 00:30: 00 02-16 00:30 :00 No [id number] 80mL 80 mL, Intravenou s, ONCE, 1 dose, On Sat02/15/23 at 1930, Routine [facility] lactated ringers IV infusion 1,000 mL 02-16 00:00: 00 02-16 03:07 :30 No [id number] 1000mL at 500 mL/hr, 1,000 mL, IV Infusion, CONTINUOUS , Starting on Sat02/15/23 at 1900, Until Sat02/15/23 at 2207, ROSELYN [facility] FENTanyl PF (SUBLIMAZE (PF)) injection 75 mcg 02-15 23:45: 00 02-15 23:13 :00 No [id number] 75ug 75 mcg, Slow IV Push, ONCE, 1 dose, On Sat02/15/23 at 1845, Routine [facility] dicyclomine (BENTYL) injection 20 mg 02-15 22:15: 00 02-15 21:46 :00 No [id number] 20mg 20 mg, Intramuscu lar, ONCE NOW, 1 dose, On Sat02/15/23 at 1715, Routine [facility] LORazepam (ATIVAN) injection 1 mg 02-15 21:45: 00 02-15 21:46 :00 No [id number] 1mg 1 mg, Slow IV Push, ONCE, 1 dose, On Sat02/15/23 at 1645, STAT [facility] ondansetron (ZOFRAN (PF)) injection 4 mg 02-15 21:45: 00 02-15 21:46 :00 No [id number] 4mg 4 mg, Slow IV Push, ONCE, 1 dose, On Sat02/15/23 at 1645, ROSELYN [facility] HYDROcodone -acetaminop hen (NORCO) 10-325 mg tablet 1 tablet 02-15 20:15: 00 02-15 19:52 :00 No [id number] 1{tbl} 1 tablet, Oral, ONCE, 1 dose, On Sat02/15/23 at 1515, Routine [facility] Melatonin 1 mg tablet 02-15 20:08: 23 02-15 00:00 :00 No 10mg Take 10 tablets by mouth every evening. [facility] trazodone HCl (DESYREL ORAL) 02-15 20:06: 33 02-15 00:00 :00 No 200mg Take 200 mg by mouth every evening. [facility] OLANZapine (ZYPREXA) 2.5 mg tablet 02-15 20:05: 48 02-15 00:00 :00 No 2.5mg Take 1 tablet by mouth in the morning and 1 tablet in the evening. [facility] hydrOXYzine (VISTARIL) 50 mg capsule 02-15 20:03: 04 02-15 00:00 :00 No 50mg Take 1 capsule by mouth every 4 (four) hours as needed for Itching. q 4-6 hours as needed [facility] dicyclomine (BENTYL) tablet 20 mg 02-15 19:30: 00 02-15 19:52 :00 No [id number] 20mg 20 mg, Oral, ONCE, 1 dose, On Sat02/15/23 at 1430, ROSELYN [facility] ibuprofen (IBU) tablet 800 mg 02-15 19:30: 00 02-15 19:52 :00 No [id number] 800mg 800 mg, Oral, ONCE, 1 dose, On Sat02/15/23 at 1430, ROSELYN [facility] losartan 50 mg tablet 02-15 13:44: 36 02-15 00:00 :00 No 50mg Take 1 tablet by mouth in the morning. [facility] Kelliher-3-DHA -EPA-Fish Oil (FISH OIL) 1,000 mg (120 mg-180 mg) Cap 02-15 13:44: 15 02-15 00:00 :00 No 1000mg Take 1,000 mg by mouth daily. [facility] methocarbam oL 750 mg tablet 02-15 13:43: 47 02-15 00:00 :00 No 750mg Take 750 mg by mouth 3 (three) times daily. [facility] FENTanyl PF (SUBLIMAZE (PF)) injection 50 mcg 01-10 00:45: 00 01-09 23:46 :00 No 50ug 50 mcg, Slow IV Push, ONCE, 1 dose, On Sat01/09/22 at 1945, Routine [facility] ketorolac (TORADOL) injection 30 mg 01-09 23:45: 00 01-09 22:48 :00 No 30mg 30 mg, Slow IV Push, ONCE, 1 dose, On Sat01/09/22 at 1845, Routine [facility] aspirin chewable tablet 243 mg 12-14 14:00: 00 Yes 243mg 243 mg, Oral, DAILY, First dose on Sat12/14/21 at 0900, Until Discontinu ed, Routine [facility] ketorolac (TORADOL) injection 15 mg 12-14 08:15: 00 12-14 07:11 :00 No 15mg 15 mg, Slow IV Push, ONCE, 1 dose, On [place] 12/14/21 at 0315, [facility] morpHINE (4 mg/mL) injection 4 mg 12-14 05:45: 00 12-14 04:52 :00 No 4mg 4 mg, Slow IV Push, ONCE, 1 dose, On [place] 12/14/21 at 0045, STAT [facility] cefTRIAXone (ROCEPHIN) 1,000 mg in NaCl 0.9% (NS) 50 mL MINI-BAG 12-14 05:45: 00 12-14 05:30 :00 No 1000mg 1,000 mg, IV Piggyback, ONCE, 1 dose, On [place] 12/14/21 at 0045, Administer over 30 Minutes, 50 mL
Reas on for Anti-Infec tive: Documented Infection< br>Documen kaushik Infection Site: Urine
D uration of Therapy: Other (see Comments) [facility] NaCl 0.9% (NS) bolus infusion 1,000 mL 12-14 05:45: 00 12-14 07:20 :00 No 1000mL at 999 mL/hr, 1,000 mL, IV Infusion, ONCE, 1 dose, On [place] 12/14/21 at 0045, [facility] ondansetron (ZOFRAN (PF)) injection 4 mg 12-14 04:45: 00 12-14 03:50 :00 No 4mg 4 mg, Slow IV Push, ONCE, 1 dose, On Sat12/13/21 at 2345, [facility] FENTanyl PF (SUBLIMAZE (PF)) injection 50 mcg 12-14 04:45: 00 12-14 03:50 :00 No 50ug 50 mcg, Slow IV Push, ONCE, 1 dose, On Sat12/13/21 at 2345, Routine [facility] ALPRAZolam (XANAX) 1 mg tablet 12-14 02:22: 13 Yes 1mg Take 1 mg by mouth 2 (two) times daily. [facility] naproxen 500 mg tablet 12-14 00:00: 00 02-15 00:00 :00 No [id number] 500mg Take 1 tablet by mouth 2 (two) times daily with meals. [facility] cefpodoxime 200 mg tablet 12-14 00:00: 00 12-22 04:59 :00 No [id number] 200mg Take 1 tablet by mouth 2 (two) times daily for 7 days. [facility] LORazepam (ATIVAN) injection 1 mg 11-12 05:00: 00 11-12 04:01 :00 No 1mg 1 mg, Slow IV Push, ONCE, 1 dose, On 11/12/21 at 0000, STAT [facility] ketorolac (TORADOL) injection 30 mg 11-12 03:30: 00 11-12 02:26 :00 No 30mg 30 mg, Slow IV Push, ONCE, 1 dose, On 11/11/21 at 2230, Routine
farm crew member approving Restricted medication : DEE WANG [facility] nitroglycer in (NITROSTAT) sublingual tablet 0.4 mg 11-12 03:30: 00 11-12 02:26 :00 No .4mg 0.4 mg, Sublingual , ONCE, 1 dose, On 11/11/21 at 2230, ROSELYN [facility] aspirin E.C. (ECOTRIN) tablet 325 mg 11-12 03:30: 00 11-12 02:25 :00 No 325mg 325 mg, Oral, ONCE, 1 dose, On 11/11/21 at 2230, STAT [facility] morpHINE (4 mg/mL) injection 4 mg 11-12 02:30: 00 11-12 01:40 :00 No 4mg 4 mg, Slow IV Push, ONCE, 1 dose, On 11/11/21 at 2130, STAT [facility] ondansetron (ZOFRAN (PF)) injection 4 mg 11-12 02:30: 00 11-12 01:40 :00 No 4mg 4 mg, Slow IV Push, ONCE, 1 dose, On 11/11/21 at 2130, [facility] NaCl 0.9% (NS) bolus infusion 1,000 mL 11-12 02:30: 00 11-12 02:30 :00 No 1000mL at 999 mL/hr, 1,000 mL, IV Infusion, ONCE, 1 dose, On 11/11/21 at 2130, [facility] hydrOXYzine 50 mg tablet 11-11 00:00: 00 Yes [id number] 50mg Take 1 tablet by mouth every 8 (eight) hours as needed for Anxiety. [facility] ketorolac (TORADOL) injection 30 mg 09-12 05:45: 00 09-12 04:54 :00 No 30mg 30 mg, Slow IV Push, ONCE, 1 dose, On Sat09/11/21 at 2345, Routine
farm crew member approving Restricted medication : DEE WANG [facility] cefTRIAXone (ROCEPHIN) 1,000 mg in NaCl 0.9% (NS) 50 mL MINI-BAG 09-12 03:45: 00 09-12 03:41 :00 No 1000mg 1,000 mg, IV Piggyback, ONCE, 1 dose, On Sat09/11/21 at 2145, Administer over 30 Minutes, 50 mL
Reas on for Anti-Infec tive: Documented Infection< br>Documen kaushik Infection Site: Urine
D uration of Therapy: 7 days [facility] ondansetron (ZOFRAN (PF)) injection 4 mg 09-12 03:15: 00 09-12 02:39 :00 No 4mg 4 mg, Slow IV Push, ONCE, 1 dose, On Sat09/11/21 at 2115, [facility] morpHINE injection 4 mg 09-12 03:15: 00 09-12 02:39 :00 No 4mg 4 mg, Slow IV Push, ONCE, 1 dose, On Sat09/11/21 at 2115, STAT [facility] iopamidol (ISOVUE 370-500 mL) injection 120 mL 09-12 02:45: 00 09-12 03:00 :00 No [id number] 120mL 120 mL, Intravenou s, ONCE, 1 dose, On Sat09/11/21 at 2100, Routine [facility] sodium chloride (NS) injection 5 mL 09-12 01:33: 26 Yes 5mL 5 mL, Intravenou s, PRN, Starting on Sat09/11/21 at 1933, Until Discontinu ed, Routine, IV line flushing [facility] ibuprofen 600 mg tablet 09-11 00:00: 00 02-15 00:00 :00 No [id number] 600mg Take 1 tablet by mouth every 6 (six) hours as needed for Pain (scale 4-6). [facility] cefdinir 300 mg capsule 09-11 00:00: 00 09-19 04:59 :00 No [id number] 300mg Take 1 capsule by mouth 2 (two) times daily for 7 days. [facility] HYDROcodone -acetaminop hen (NORCO) 10-325 mg tablet 1 tablet 08-15 09:00: 00 08-15 07:59 :00 No 1{tbl} 1 tablet, Oral, ONCE, 1 dose, On Sat08/15/21 at 0300, Routine [facility] FENTanyl PF (SUBLIMAZE (PF)) injection 75 mcg 08-15 07:30: 00 08-15 06:42 :00 No 75ug 75 mcg, Intramuscu lar, ONCE, 1 dose, On Sat08/15/21 at 0130, Routine [facility] methocarbam oL (ROBAXIN) 500 mg tablet 08-15 00:00: 00 Yes [id number] 500mg Take 1 tablet by mouth every 6 (six) hours as needed for Pain (scale 7-10) (MUSCLE SPASM). [facility] traMADoL (ULTRAM) 50 mg tablet 08-15 00:00: 00 Yes [id number] 50mg Take 1 tablet by mouth every 6 (six) hours as needed for Pain (scale 7-10). Indication s: acute pain [facility] Nitrofurant oin&Nit. Macrocryst (MACROBID) 100 mg capsule 08-15 00:00: 00 02-15 00:00 :00 No [id number] 100mg Take 1 capsule by mouth 2 (two) times daily. [facility] morpHINE injection 4 mg 2020-07 08:30: 00 05-28 07:50 :00 No 4mg 4 mg, Slow IV Push, ONCE, 1 dose, On 05/28/21 at 0230, ROSELYN [facility] maalox:diph enhydrAMINE :lidocaine 2 % viscous 1:1:1 ([facility]) oral suspension 15 mL 2020-07 08:00: 00 05-28 07:04 :00 No 15mL 15 mL, Oral, ONCE, 1 dose, On 05/28/21 at 0200, Routine [facility] FENTanyl PF (SUBLIMAZE (PF)) injection 50 mcg 2020-07 07:00: 00 05-28 06:02 :00 No 50ug 50 mcg, Slow IV Push, ONCE, 1 dose, On 05/28/21 at 0100, STAT [facility] famotidine (PEPCID (PF)) injection 20 mg 2020-07 07:00: 00 05-28 06:01 :00 No 20mg 20 mg, Slow IV Push, ONCE, 1 dose, On 05/28/21 at 0100, ROSELYN [facility] famotidine 20 mg tablet 2020-07 00:00: 00 06-13 05:59 :00 No [id number] 20mg Take 1 tablet by mouth 2 (two) times daily for 15 days. [facility] escitalopra m oxalate (LEXAPRO) tablet 10 mg 2020-07 02:00: 00 Yes 10mg 10 mg, Oral, QHS, First dose on 04/08/21 at 2100, Until Discontinu ed, Routine [facility] aspirin 81 mg chewable tablet 2020-07 00:00: 00 05-10 04:59 :00 No [id number] 81mg Take 1 tablet by mouth daily for 30 days. [facility] traZODone (DESYREL) tablet 200 mg 2020-07 22:00: 00 Yes 200mg 200 mg, Oral, QPM, First dose on 04/08/21 at 1700, Until Discontinu ed [facility] topiramate (TOPAMAX) tablet 200 mg 2020-07 22:00: 00 Yes 200mg 200 mg, Oral, QPM, First dose on 04/08/21 at 1700, Until Discontinu ed, Routine
farm crew member approving Restricted medication : ALEXEY ALEGRE [facility] OLANZapine (ZyPREXA) tablet 15 mg 2020-07 22:00: 00 Yes 15mg 15 mg, Oral, QPM, First dose on 04/08/21 at 1700, Until Discontinu ed, Routine [facility] melatonin (MELATIN) tablet 9 mg 2020-07 22:00: 00 Yes 9mg 9 mg, Oral, QPM, First dose on 04/08/21 at 1700, Until Discontinu ed [facility] bupropion HCl (WELLBUTRIN ORAL) 2020-07 17:45: 33 Yes 150mg Take 150 mg by mouth every morning. [facility] OLANZapine (ZYPREXA) 15 mg tablet 2020-07 17:45: 33 Yes 15mg Take 15 mg by mouth every evening. [facility] OLANZapine (ZYPREXA) 2.5 mg tablet 2020-07 17:45: 33 Yes 2.5mg Take 2.5 mg by mouth 2 (two) times daily. [facility] methocarbam oL 750 mg tablet 2020-07 17:45: 33 Yes 750mg Take 750 mg by mouth 3 (three) times daily. [facility] Kelliher-3-DHA -EPA-Fish Oil (FISH OIL) 1,000 mg (120 mg-180 mg) Cap 2020-07 17:45: 33 Yes 1000mg Take 1,000 mg by mouth daily. [facility] hydrOXYzine (VISTARIL) 50 mg capsule 2020-07 17:45: 33 Yes 50mg Take 50 mg by mouth every 4 (four) hours as needed for Itching. q 4-6 hours as needed [facility] losartan 50 mg tablet 2020-07 17:45: 33 Yes 50mg Take 50 mg by mouth daily. [facility] trazodone HCl (DESYREL ORAL) 2020-07 17:45: 33 Yes 200mg Take 200 mg by mouth every evening. [facility] escitalopra m oxalate (LEXAPRO) 5 mg tablet 2020-07 17:45: 33 Yes 10mg Take 10 mg by mouth at bedtime. [facility] Melatonin 1 mg tablet 2020-07 17:45: 33 Yes 10mg Take 10 mg by mouth every evening. [facility] topiramate (TOPAMAX) 200 mg tablet 2020-07 17:45: 33 Yes 200mg Take 200 mg by mouth every evening. [facility] furosemide (LASIX) injection 20 mg 2020-07 14:30: 00 Yes 20mg 20 mg, Slow IV Push, Q12H, First dose on 04/08/21 at 0930, Until Discontinu ed, Routine [facility] losartan (COZAAR) tablet 50 mg 2020-07 14:00: 00 Yes 50mg 50 mg, Oral, DAILY, First dose on 04/08/21 at 0900, Until Discontinu ed, Routine [facility] buPROPion XL (WELLBUTRIN XL) tablet 150 mg 2020-07 14:00: 00 Yes 150mg 150 mg, Oral, DAILY, First dose on 04/08/21 at 0900, Until Discontinu ed [facility] aspirin chewable tablet 81 mg 2020-07 14:00: 00 Yes 81mg 81 mg, Oral, DAILY, First dose on Sat04/08/21 at 0900, Until Discontinu ed, Routine [facility] enoxaparin (LOVENOX) injection 40 mg 2020-07 14:00: 00 Yes 40mg 40 mg, Subcutaneo us, DAILY, First dose on [facility] 04/08/21 at 0900, Until Discontinu ed, Routine [facility] OLANZapine (ZyPREXA) tablet 2.5 mg 2020-07 13:00: 00 Yes 2.5mg 2.5 mg, Oral, BID, First dose on Sat04/08/21 at 0800, Until Discontinu ed, Routine [facility] methocarbam oL (ROBAXIN) tablet 750 mg 2020-07 13:00: 00 Yes 750mg 750 mg, Oral, TID, First dose on [facility] 04/08/21 at 0800, Until Discontinu ed, Routine [facility] LORazepam (ATIVAN) injection 0.5 mg 2020-07 04:07: 43 Yes .5mg 0.5 mg, Slow IV Push, PRN, 2 doses, Starting on Sat04/07/21 at 2307, Until Discontinu ed, Routine, Anxiety [facility] hydrOXYzine (ATARAX) tablet 50 mg 2020-07 02:51: 23 Yes 50mg 50 mg, Oral, Q4HPRN, Starting on Sat04/07/21 at 2151, Until Discontinu ed, Itching [facility] LORazepam (ATIVAN) tablet 0.5 mg 2020-07 02:05: 29 Yes .5mg 0.5 mg, Oral, PRN, 2 doses, Starting on Sat04/07/21 at 2105, Until Discontinu ed, Routine, Anxiety [facility] morpHINE injection 4 mg 2020-07 00:00: 00 04-07 22:58 :00 No 4mg 4 mg, Slow IV Push, ONCE, 1 dose, On Sat04/07/21 at 1900, STAT [facility] ondansetron (ZOFRAN (PF)) injection 4 mg 2020-07 00:00: 00 04-07 22:56 :00 No 4mg 4 mg, Slow IV Push, ONCE, 1 dose, On Sat04/07/21 at 1900, RO[place]N [facility] morpHINE injection 4 mg 2020-07 23:58: 03 04-08 23:57 :03 No 4mg 4 mg, Slow IV Push, Q4HPRN, Starting on Sat04/07/21 at 1858, Until 04/08/21 at 1857, Routine, Pain (scale 7-10) [facility] HYDROcodone -acetaminop hen (NORCO 5) 5-325 mg tablet 1 tablet 2020-07 23:58: 00 04-09 23:57 :00 No 1{tbl} 1 tablet, Oral, Q6HPRN, Starting on Sat04/07/21 at 1858, Until Sat04/09/21 at 1857, Routine, Pain (scale 4-6) [facility] acetaminoph en (TYLENOL) tablet 650 mg 2020-07 23:57: 57 Yes 650mg 650 mg, Oral, Q6HPRN, Starting on Sat04/07/21 at 1857, Until Discontinu ed, Routine, Pain (scale 1-3) [facility] aspirin tablet 325 mg 2020-07 23:00: 00 04-07 21:56 :00 No 325mg 325 mg, Oral, ONCE, 1 dose, On Sat04/07/21 at 1800, STAT [facility] nitroglycer in (NITROSTAT) sublingual tablet 0.4 mg 2020-07 21:51: 01 04-07 22:46 :00 No .4mg 0.4 mg, Sublingual , Q5MIN PRN, 3 doses, Starting on Sat04/07/21 at 1651, Until Discontinu ed, ROSELYN, Chest pain [facility] fluconazole (DIFLUCAN) tablet 150 mg 01-12 14:00: 00 Yes 150mg 150 mg, Oral, DAILY, First dose on [place] 01/12/21 at 0900, Until Discontinu ed, ROSELYN
Re ason for Anti-Infec tive: Empiric Therapy for Suspected Infection< br>Empiric Therapy Site: HEENT
D uration of therapy: 72 hours [facility] cefTRIAXone (ROCEPHIN) 1,000 mg in NaCl 0.9% (NS) 50 mL MINI-BAG 01-12 10:15: 00 01-12 09:49 :00 No 1000mg 1,000 mg, IV Piggyback, ONCE, 1 dose, [place] 01/12/21 at 0515, 50 mL
Reas on for Anti-Infec tive: Empiric Therapy for Suspected Infection< br>Empiric Therapy Site: Urine
D uration of therapy: 72 hours [facility] hydrOXYzine (ATARAX) tablet 25 mg 01-12 10:15: 00 01-12 09:18 :00 No 25mg 25 mg, Oral, ONCE, 1 dose, [place] 01/12/21 at 0515, ROSELYN [facility] HYDROcodone -acetaminop hen (NORCO) 10-325 mg tablet 1 tablet 01-12 10:15: 00 01-12 09:18 :00 No 1{tbl} 1 tablet, Oral, ONCE, 1 dose, [place] 01/12/21 at 0515, Routine [facility] maalox:diph enhydrAMINE :lidocaine2 %viscous 1:1:1: suspension (COMPOUNDED ) 01-12 09:30: 00 01-12 08:25 :00 No 15mL 15 mL, Oral, ONCE, 1 dose, [place] 01/12/21 at 0430, Routine [facility] cephALEXin (KEFLEX) 500 mg capsule 01-12 00:00: 00 04-07 00:00 :00 No [id number] 500mg Take 1 capsule by mouth 3 (three) times daily. [facility] HYDROcodone -acetaminop hen (NORCO 5) 5-325 mg tablet 1 tablet 12-11 02:00: 00 12-11 01:29 :00 No 1{tbl} 1 tablet, Oral, ONCE, 1 dose, 12/10/20 at 2100, [facility] LORazepam (ATIVAN) injection 1 mg 12-11 00:30: 00 12-10 23:36 :00 No 1mg 1 mg, Slow IV Push, ONCE, 1 dose, 12/10/20 at 1930, STAT [facility] ketorolac (TORADOL) injection 30 mg 12-11 00:30: 00 12-10 23:36 :00 No 30mg 30 mg, Slow IV Push, ONCE, 1 dose, 12/10/20 at 1930, [facility]
Fa culty member approving Restricted medication : EMERGENCY ROOM, [facility] ondansetron (ZOFRAN (PF)) injection 4 mg 12-10 23:45: 00 12-10 22:46 :00 No 4mg 4 mg, Slow IV Push, ONCE, 1 dose, 12/10/20 at 1845, [facility] NaCl 0.9% (NS) bolus infusion 2,000 mL 12-10 22:45: 00 12-11 01:29 :00 No 2000mL at 999 mL/hr, 2,000 mL, IV Infusion, ONCE, 1 dose, 12/10/20 at 1745, [facility] proMETHazin e 25 mg tablet 12-10 00:00: 00 04-07 00:00 :00 No [id number] 12.5mg Take 0.5 tablets by mouth every 6 (six) hours as needed for N/V unresponsi ve to Ondansetro n. [facility] morpHINE injection 4 mg 12-04 22:30: 00 12-04 21:37 :00 No 4mg 4 mg, Slow IV Push, ONCE, 1 dose, 12/04/20 at 1730, STAT [facility] losartan 50 mg tablet 12-04 22:03: 53 Yes 50mg Take 50 mg by mouth daily. [facility] LORazepam (ATIVAN) tablet 1 mg 12-04 21:45: 00 12-04 20:44 :00 No 1mg 1 mg, Oral, ONCE, 1 dose, 12/04/20 at 1645, RO[place]N [facility] ondansetron (ZOFRAN (PF)) injection 4 mg 12-04 21:15: 00 12-04 20:22 :00 No 4mg 4 mg, Slow IV Push, ONCE, 1 dose, 12/04/20 at 1615, [facility] morpHINE injection 4 mg 12-04 21:15: 00 12-04 20:21 :00 No 4mg 4 mg, Slow IV Push, ONCE, 1 dose, 12/04/20 at 1615, STAT [facility] ALPRAZolam (XANAX) 2 mg tablet 11-04 04:24: 19 11-03 00:00 :00 No 2mg Take 2 mg by mouth at bedtime. [facility] LORazepam (ATIVAN) injection 1 mg 11-04 04:00: 00 11-04 02:57 :00 No 1mg 1 mg, Slow IV Push, ONCE, 1 dose, [facility] 11/03/20 at 2300, STAT [facility] LORazepam (ATIVAN) tablet 1 mg 11-04 04:00: 00 11-04 02:57 :00 No 1mg 1 mg, Oral, ONCE, 1 dose, [place] 11/03/20 [facility] 2300[facility] 11-01 00:00: 00 04-07 00:00 :00 No .5mg Take 0.5 mg by mouth. [facility] SERTraline 100 mg tablet 11-01 00:00: 00 04-07 00:00 :00 No 100mg Take 100 mg by mouth. [facility] busPIRone 10 mg tablet 13 00:00: 00 04-07 00:00 :00 No 10mg Take 10 mg by mouth. [facility] ibuprofen (IBU) tablet 800 mg 09-17 16:55: 00 09-17 16:57 :00 No 800mg 800 mg, Oral, ONCE, 1 dose, 09/17/20 at 1100, ROSE[place]N [facility] benzonatate 100 mg capsule 09-17 00:00: 00 04-07 00:00 :00 No [id number] 100mg Take 1 capsule by mouth 3 (three) times daily as needed for Cough. [facility] amoxicillin 500 mg capsule 09-17 00:00: 00 09-28 04:59 :00 No [id number] 500mg Take 1 capsule by mouth 3 (three) times daily for 10 days. [facility] HYDROcodone -acetaminop hen (NORCO) 10-325 mg tablet 1 tablet 09-07 07:45: 00 09-07 07:09 :00 No 1{tbl} 1 tablet, Oral, ONCE, 1 dose, 09/07/20 at 0145, Routine [facility] ondansetron (ZOFRAN-ODT ) disintegrat ing tablet 4 mg 09-07 07:15: 00 09-07 07:15 :00 No 4mg 4 mg, Oral, ONCE, 1 dose, 09/07/20 at 0130, Routine [facility] ibuprofen 800 mg tablet 09-07 00:00: 00 Yes [id number] 800mg Take 1 tablet by mouth every 8 (eight) hours as needed for Pain (scale 4-6). [facility] ketorolac (TORADOL) injection 30 mg 08-28 10:45: 00 08-28 09:48 :00 No 30mg 30 mg, Slow IV Push, ONCE, 1 dose, 08/28/20 at 0445, Routine
farm crew member approving Restricted medication : OLIVIA GARCIA [facility] ondansetron (ZOFRAN (PF)) injection 4 mg 08-28 10:00: 00 08-28 09:06 :00 No 4mg 4 mg, Slow IV Push, ONCE, 1 dose, 08/28/20 at 0400, ROSE[place]N [facility] FENTanyl PF (SUBLIMAZE (PF)) injection 50 mcg 08-28 10:00: 00 08-28 09:07 :00 No 50ug 50 mcg, Slow IV Push, ONCE, 1 dose, 08/28/20 at 0400, Routine [facility] maalox:diph enhydrAMINE :lidocaine 2 % viscous 1:1:1 ([facility]) oral suspension 15 mL 08-28 10:00: 00 08-28 09:07 :00 No 15mL 15 mL, Oral, ONCE, 1 dose, 08/28/20 at 0400, Routine [facility] iohexol (OMNIPAQUE 350 BULK-100 mL) injection 120 mL 08-28 09:30: 00 08-28 09:11 :00 No 120mL 120 mL, Intravenou s, ONCE, 1 dose, 08/28/20 at 0330, Routine [facility] dicyclomine 20 mg tablet 08-28 00:00: 00 04-07 00:00 :00 No [id number] 20mg Take 1 tablet by mouth every 6 (six) hours as needed for Abdominal pain. [facility] ondansetron (ZOFRAN) 4 mg tablet 08-28 00:00: 00 09-17 00:00 :00 No [id number] 4mg Take 1 tablet by mouth every 8 (eight) hours as needed for Nausea and Vomiting (N/V). [facility] FENTanyl PF (SUBLIMAZE (PF)) injection 25 mcg 08-14 19:00: 00 08-14 18:09 :00 No 25ug 25 mcg, Slow IV Push, ONCE, 1 dose, 08/14/20 at 1300, STAT [facility] ondansetron (ZOFRAN (PF)) injection 4 mg 08-14 19:00: 00 08-14 18:10 :00 No 4mg 4 mg, Slow IV Push, ONCE, 1 dose, 08/14/20 at 1300, [facility] ketorolac (TORADOL) injection 15 mg 08-14 19:00: 00 08-14 18:09 :00 No 15mg 15 mg, Slow IV Push, ONCE, 1 dose, 08/14/20 at 1300, [facility]
Fa culty member approving Restricted medication : BEST TAYLOR [facility] piperacilli n-tazobacta m (ZOSYN) 3.375 g in NaCl 0.9% (NS) 100 mL MINI-BAG 08-14 19:00: 08-14 18:38 :00 No 3.375g 3.375 g, IV Piggyback, ONCE, 1 dose, 08/14/20 at 1300, 100 mL
Reas on for Anti-Infec tive: Documented Infection< br>Documen kaushik Infection Site: Urine
D uration of Therapy: Other (see Comments) [facility] NaCl 0.9% (NS) bolus infusion 1,000 mL 08-14 19:00: 00 08-14 19:00 :00 No 1000mL at 999 mL/hr, 1,000 mL, IV Infusion, ONCE, 1 dose, 08/14/20 at 1300, STAT [facility] guaiFENesin 100 mg/5 mL solution 08-14 00:00: 00 04-07 00:00 :00 No [id number] 100mg Take 5 mL by mouth every 4 (four) hours. [facility] ondansetron 4 mg disintegrat ing tablet 08-14 00:00: 00 09-17 00:00 :00 No [id number] 4mg Take 1 tablet by mouth every 8 (eight) hours as needed for Nausea and Vomiting (N/V). [facility] ibuprofen 600 mg tablet 08-14 00:00: 00 09-17 00:00 :00 No [id number] 600mg Take 1 tablet by mouth every 6 (six) hours as needed for Pain (scale 4-6). [facility] amoxicillin -clavulanat e 875-125 mg per tablet 08-14 00:00: 00 08-25 05:59 :00 No [id number] 1{tbl} Take 1 tablet by mouth 2 (two) times daily for 10 days. [facility] fluconazole (DIFLUCAN) tablet 150 mg 08-11 15:00: 00 Yes 150mg 150 mg, Oral, DAILY, First dose on [place] 08/11/20 at 0900, Until Discontinu ed, [place]
Re ason for Anti-Infec tive: Documented Infection< br>Documen kaushik Infection Site: Urine
D uration of Therapy: Other (see Comments) [facility] HYDROcodone -acetaminop hen (NORCO) 10-325 mg tablet 1 tablet 08-11 05:30: 00 08-11 05:08 :00 No 1{tbl} 1 tablet, Oral, ONCE NOW, 1 dose, 08/10/20 at 2330, Routine [facility] FENTanyl PF (SUBLIMAZE (PF)) injection 25 mcg 08-11 04:30: 00 08-11 03:19 :00 No 25ug 25 mcg, Slow IV Push, ONCE, 1 dose, 08/10/20 at 2230, STAT [facility] ondansetron (ZOFRAN (PF)) injection 4 mg 08-11 04:15: 00 08-11 03:19 :00 No 4mg 4 mg, Slow IV Push, ONCE, 1 dose, 08/10/20 at 2215, [place] [facility] NaCl 0.9% (NS) bolus infusion 1,000 mL 2 01:45: 00 08-11 03:45 :00 No 1000mL at 999 mL/hr, 1,000 mL, IV Infusion, ONCE, 1 dose, 08/10/20 at 1945, STAT [facility] ketorolac (TORADOL) injection 30 mg 08-11 01:45: 00 08-11 02:31 :00 No 30mg 30 mg, Slow IV Push, ONCE, 1 dose, Sat08/10/20 at 1945, [facility]
Fa culty member approving Restricted medication : BEST TAYLOR [facility] traMADoL (ULTRAM) 50 mg tablet 08-10 00:00: 00 09-17 00:00 :00 No [id number] 50mg Take 1 tablet by mouth every 6 (six) hours as needed for Pain (scale 7-10). Indication s: acute pain [facility] ibuprofen 800 mg tablet 08-07 00:00: 00 09-17 00:00 :00 No [id number] 800mg Take 1 tablet by mouth every 8 (eight) hours. [facility] amoxicillin 500 mg capsule 08-07 00:00: 00 09-17 00:00 :00 No [id number] 500mg Take 1 capsule by mouth 3 (three) times daily. [facility] traMADoL 50 mg tablet 08-07 00:00: 00 09-17 00:00 :00 No [id number] 50mg Take 1 tablet by mouth every 6 (six) hours as needed for Pain (scale 4-6). Indication s: acute pain [facility] LORazepam (ATIVAN) tablet 1 mg 2019-07 03:15: 00 07-01 02:21 :00 No 1mg 1 mg, Oral, ONCE, 1 dose, [place] 06/30/20 at 2115, [place] [facility] FENTanyl PF (SUBLIMAZE (PF)) injection 50 mcg 2019-07 02:30: 00 07-01 01:39 :00 No 50ug 50 mcg, Slow IV Push, ONCE, 1 dose, [place] 06/30/20 at 2030, Routine [facility] ondansetron (ZOFRAN-ODT ) disintegrat ing tablet 4 mg 2019-07 01:15: 07-01 00:52 :00 No 4mg 4 mg, Oral, ONCE, 1 dose, [place] 06/30/20 at 1915, Routine [facility] ketorolac (TORADOL) injection 30 mg 2019-07 01:15: 07-01 00:52 :00 No 30mg 30 mg, Slow IV Push, ONCE, 1 dose, [place] 06/30/20 at 1915, [facility]
Fa culty member approving Restricted medication : ABDIAS ROBERTSON [facility] albuterol 90 mcg/actuati on inhaler 2019-07 00:00: 00 04-07 00:00 :00 No [id number] 2{puff} Inhale 2 Puffs every 4 (four) hours as needed for Wheezing or Shortness of Breath. [facility] hydrOXYzine 25 mg tablet 2019-07 00:00: 09-17 00:00 :00 No [id number] 25mg Take 1 tablet by mouth every 6 (six) hours as needed for Anxiety. [facility] naproxen sodium (ANAPROX DS) 550 mg tablet 2019-07 00:00: 00 04-07 00:00 :00 No [id number] 550mg Take 1 tablet by mouth 2 (two) times daily with meals. [facility] methylPREDN ISolone (MEDROL, BEBETO,) 4 mg tablets 2019-07 00:00: 09-17 00:00 :00 No [id number] Take by mouth SEE-INSTRU CTIONS. follow package directions [facility] methocarbam oL 500 mg tablet 2019-07 00:00: 00 07-04 05:59 :00 No [id number] 500mg Take 1 tablet by mouth 3 (three) times daily for 5 days. [facility] proMETHazin e (PHENERGAN) tablet 25 mg 2019-07 04:45: 00 06-13 03:37 :00 No 25mg 25 mg, Oral, ONCE, 1 dose, [place] 06/12/20 at 2245, [place] [facility] ondansetron (ZOFRAN (PF)) injection 4 mg 2019-07 03:00: 00 06-13 01:59 :00 No 4mg 4 mg, Slow IV Push, ONCE, 1 dose, 06/12/20 at 2100, [facility] ketorolac (TORADOL) injection 15 mg 2019-07 03:00: 00 06-13 01:58 :00 No 15mg 15 mg, Intramuscu lar, ONCE, 1 dose, 06/12/20 at 2100, [facility]
Fa culty member approving Restricted medication : LEEANNE WISE [facility] morpHINE injection 4 mg 2019-07 01:30: 00 06-13 00:41 :00 No 4mg 4 mg, Slow IV Push, ONCE, 1 dose, 06/12/20 at 1930, STAT [facility] ondansetron (ZOFRAN (PF)) injection 4 mg 2019-07 00:45: 00 06-13 00:41 :00 No 4mg 4 mg, Slow IV Push, ONCE, 1 dose, 06/12/20 at 1845, [facility] NaCl 0.9% (NS) bolus infusion 1,000 mL 2019-07 23:45: 00 06-13 03:54 :00 No 1000mL at 999 mL/hr, 1,000 mL, IV Infusion, ONCE, 1 dose, 06/12/20 at 1745, [facility] dicyclomine 20 mg tablet 2019-07 00:00: 00 04-07 00:00 :00 No [id number] 20mg Take 1 tablet by mouth 4 (four) times daily as needed for Abdominal pain. [facility] proMETHazin e 25 mg tablet 2019-07 00:00: 00 09-17 00:00 :00 No [id number] 25mg Take 1 tablet by mouth every 6 (six) hours as needed for Nausea and Vomiting (N/V). [facility] famotidine 20 mg tablet 2019-07 00:00: 00 06-27 05:59 :00 No [id number] 20mg Take 1 tablet by mouth at bedtime for 14 days. [facility] haloperidol lactate (HALDOL) injection 2.5 mg 2019-07 01:00: 00 05-16 23:51 :00 No 2.5mg 2.5 mg, Intravenou s, ONCE, 1 dose, [facility] 05/16/20 at 1900, STAT [facility] NaCl 0.9% (NS) bolus infusion 1,000 mL 2019-07 23:45: 00 05-17 00:54 :00 No 1000mL at 999 mL/hr, 1,000 mL, IV Infusion, ONCE, 1 dose, [facility]16[facility]20 at 1745[facility]GAN[facility] 25 mg suppository 2019-07 00:00: 00 Yes [id number] 25mg Insert 1 Suppositor y into rectum every 4 (four) hours as needed for Nausea and Vomiting (N/V). [facility] ondansetron (ZOFRAN (PF)) injection 4 mg 2019-07 07:30: 00 05-15 06:26 :00 No 4mg 4 mg, Slow IV Push, ONCE, 1 dose, [place] 05/15/20 at 0130[facility] (OMN[facility]AQUE 350 BULK-100 mL) injection 120 mL 2019-07 07:00: 00 05-15 06:52 :00 No 120mL 120 mL, Intravenou s, ONCE, 1 dose, [place] 05/15/20 at 0100, Routine [facility] ondansetron (ZOFRAN (PF)) injection 4 mg 2019-07 06:30: 00 05-15 05:52 :00 No 4mg 4 mg, Slow IV Push, ONCE, 1 dose, [place] 05/15/20 at 0030[facility] AL[facility] (XANAX) 2 mg tablet 2019-07 05:30: 59 Yes 2mg Take 2 mg by mouth at bedtime. [facility] zolpidem 5 mg tablet 2019-0 6-15 00:00: 00 04-07 00:00 :00 No 5mg Take 5 mg by mouth. [facility] Immunizations Ordered Immunization Name Filled Immunization [...] blood pressure 2023-10-29 18:12:00 132 mm[Hg] Kellee Seybold - External Diastolic blood pressure 2023-10-29 18:12:00 84 mm[Hg] Kellee Ariasybold - External Heart rate 2023-10-29 18:12:00 82 /min Kellee Ariasybold - External Body temperature 2023-10-29 18:12:00 36.72 Latanya Kellee Ariasybold - External Respiratory rate 2023-10-29 18:12:00 18 /min Kellee Floresold - External Body height 2023-10-29 18:12:00 157.5 cm Kellee Buckley - External Body weight 2023-10-29 18:12:00 106.142 kg Kellee Buckley - External BMI 2023-10-29 18:12:00 42.80 kg/m2 Kellee Buckley - External Oxygen saturation in Arterial blood by Pulse oximetry 2023-10-29 18:12:00 97 /min Kellee Ariasybold - External Systolic blood pressure 2023-10-11 05:00:00 126 mm[Hg] [facility] Diastolic blood pressure 2023-10-11 05:00:00 87 mm[Hg] [facility] Heart rate 2023-10-11 05:00:00 94 /min [facility] Respiratory rate 2023-10-11 05:00:00 22 /min [facility] Oxygen saturation in Arterial blood by Pulse oximetry 2023-10-11 05:00:00 98 /min [facility] Body temperature 2023-10-11 02:28:00 37.22 Latanya [facility] Body height 2023-10-11 02:28:00 157.5 cm [facility] Body weight 2023-10-11 02:28:00 99.791 kg [facility] BMI 2023-10-11 02:28:00 40.24 kg/m2 [facility] Systolic blood pressure 2023-07-02 04:10:00 147 mm[Hg] [facility] Diastolic blood pressure 2023-07-02 04:10:00 89 mm[Hg] [facility] Heart rate 2023-07-02 04:10:00 73 /min [facility] Respiratory rate 2023-07-02 04:10:00 19 /min [facility] Oxygen saturation in Arterial blood by Pulse oximetry 2023-07-02 04:10:00 98 /min [facility] Body temperature 2023-07-02 01:47:00 36.78 Latanya [facility] Body height 2023-07-02 01:47:00 160 cm [facility] Body weight 2023-07-02 01:47:00 97.659 kg [facility] BMI 2023-07-02 01:47:00 38.14 kg/m2 [facility] Systolic blood pressure 2023-05-10 01:00:00 133 mm[Hg] [facility] Diastolic blood pressure 2023-05-10 01:00:00 81 mm[Hg] [facility] Heart rate 2023-05-10 01:00:00 64 /min [facility] Respiratory rate 2023-05-10 01:00:00 21 /min [facility] Oxygen saturation in Arterial blood by Pulse oximetry 2023-05-10 01:00:00 96 /min [facility] Body temperature 2023-05-09 22:43:00 36.67 Latanya [facility] Body height 2023-05-09 22:43:00 157.5 cm [facility] Body weight 2023-05-09 22:43:00 99.791 kg [facility] BMI 2023-05-09 22:43:00 40.24 kg/m2 [facility] Systolic blood pressure 2023-05-01 01:00:00 107 mm[Hg] [facility] Diastolic blood pressure 2023-05-01 01:00:00 80 mm[Hg] [facility] Heart rate 2023-05-01 01:00:00 80 /min [facility] Body temperature 2023-05-01 01:00:00 37.06 Latanya [facility] Respiratory rate 2023-05-01 01:00:00 16 /min [facility] Oxygen saturation in Arterial blood by Pulse oximetry 2023-05-01 01:00:00 98 /min [facility] Body height 2023-04-30 22:16:00 157.5 cm [facility] Body weight 2023-04-30 22:16:00 95.255 kg [facility] BMI 2023-04-30 22:16:00 38.41 kg/m2 [facility] Systolic blood pressure 2023-04-17 02:00:00 147 mm[Hg] [facility] Diastolic blood pressure 2023-04-17 02:00:00 83 mm[Hg] [facility] Heart rate 2023-04-17 02:00:00 90 /min [facility] Respiratory rate 2023-04-17 02:00:00 18 /min [facility] Oxygen saturation in Arterial blood by Pulse oximetry 2023-04-17 02:00:00 96 /min [facility] Body temperature 2023-04-17 01:33:00 36.78 Latanya [facility] Body height 2023-04-17 01:33:00 157.5 cm [facility] Body weight 2023-04-17 01:33:00 99.791 kg [facility] BMI 2023-04-17 01:33:00 40.24 kg/m2 [facility] Systolic blood pressure 2023-04-09 01:04:48 135 mm[Hg] [facility] Diastolic blood pressure 2023-04-09 01:04:48 84 mm[Hg] [facility] Heart rate 2023-04-09 01:04:48 67 /min [facility] Respiratory rate 2023-04-09 01:04:48 16 /min [facility] Oxygen saturation in Arterial blood by Pulse oximetry 2023-04-09 01:04:48 99 /min [facility] Body temperature 2023-04-08 22:16:00 36.67 Latanya [facility] Body height 2023-04-08 22:16:00 157.5 cm [facility] Body weight 2023-04-08 22:16:00 99.791 kg [facility] BMI 2023-04-08 22:16:00 40.24 kg/m2 [facility] Systolic blood pressure 2023-03-10 05:00:00 156 mm[Hg] [facility] Diastolic blood pressure 2023-03-10 05:00:00 94 mm[Hg] [facility] Heart rate 2023-03-10 05:00:00 75 /min [facility] Respiratory rate 2023-03-10 05:00:00 21 /min [facility] Oxygen saturation in Arterial blood by Pulse oximetry 2023-03-10 05:00:00 97 /min [facility] Body temperature 2023-03-10 01:20:00 36.72 Latanya [facility] Body height 2023-03-10 01:20:00 157.5 cm [facility] Body weight 2023-03-10 01:20:00 100.381 kg [facility] BMI 2023-03-10 01:20:00 40.48 kg/m2 [facility] Systolic blood pressure 2023-03-02 06:00:00 126 mm[Hg] [facility] Diastolic blood pressure 2023-03-02 06:00:00 79 mm[Hg] [facility] Heart rate 2023-03-02 06:00:00 69 /min [facility] Respiratory rate 2023-03-02 06:00:00 23 /min [facility] Oxygen saturation in Arterial blood by Pulse oximetry 2023-03-02 06:00:00 94 /min [facility] Body temperature 2023-03-02 00:34:00 37.28 Latanya [facility] Body height 2023-03-02 00:34:00 157.5 cm [facility] Body weight 2023-03-02 00:34:00 99.791 kg [facility] BMI 2023-03-02 00:34:00 40.24 kg/m2 [facility] Systolic blood pressure 2023-02-18 06:46:00 126 mm[Hg] [facility] Diastolic blood pressure 2023-02-18 06:46:00 77 mm[Hg] [facility] Heart rate 2023-02-18 06:46:00 79 /min [facility] Respiratory rate 2023-02-18 06:46:00 16 /min [facility] Oxygen saturation in Arterial blood by Pulse oximetry 2023-02-18 06:46:00 95 /min [facility] Body temperature 2023-02-18 03:55:00 36.72 Latanya [facility] Body height 2023-02-18 03:55:00 157.5 cm [facility] Body weight 2023-02-18 03:55:00 102.331 kg [facility] BMI 2023-02-18 03:55:00 41.26 kg/m2 [facility] Systolic blood pressure 2023-02-17 16:20:00 113 mm[Hg] [facility] Diastolic blood pressure 2023-02-17 16:20:00 65 mm[Hg] [facility] Heart rate 2023-02-17 16:20:00 65 /min [facility] Body temperature 2023-02-17 16:20:00 36.83 Latanya [facility] Respiratory rate 2023-02-17 16:20:00 16 /min [facility] Oxygen saturation in Arterial blood by Pulse oximetry 2023-02-17 16:20:00 97 /min [facility] Body weight 2023-02-17 08:50:00 99.973 kg [facility] BMI 2023-02-17 08:50:00 40.31 kg/m2 [facility] Body height 2023-02-16 01:19:00 157.5 cm [facility] Systolic blood pressure 2022-01-10 01:24:00 120 mm[Hg] [facility] Diastolic blood pressure 2022-01-10 01:24:00 76 mm[Hg] [facility] Heart rate 2022-01-10 01:24:00 73 /min [facility] Respiratory rate 2022-01-10 01:24:00 16 /min [facility] Oxygen saturation in Arterial blood by Pulse oximetry 2022-01-10 01:24:00 96 /min [facility] Body weight 2022-01-09 21:39:00 104.327 kg [facility] BMI 2022-01-09 21:39:00 42.07 kg/m2 [facility] Systolic blood pressure 2021-12-14 07:22:00 121 mm[Hg] [facility] Diastolic blood pressure 2021-12-14 07:22:00 86 mm[Hg] [facility] Heart rate 2021-12-14 07:22:00 80 /min [facility] Respiratory rate 2021-12-14 07:22:00 17 /min [facility] Oxygen saturation in Arterial blood by Pulse oximetry 2021-12-14 07:22:00 96 /min [facility] Body temperature 2021-12-14 03:06:00 36.72 Latanya [facility] Body height 2021-12-14 03:06:00 157.5 cm [facility] Body weight 2021-12-14 03:06:00 95.255 kg [facility] BMI 2021-12-14 03:06:00 38.41 kg/m2 [facility] Systolic blood pressure 2021-11-12 04:15:00 112 mm[Hg] [facility] Diastolic blood pressure 2021-11-12 04:15:00 75 mm[Hg] [facility] Heart rate 2021-11-12 04:15:00 92 /min [facility] Body temperature 2021-11-12 04:15:00 36.44 Latanya [facility] Respiratory rate 2021-11-12 04:15:00 18 /min [facility] Oxygen saturation in Arterial blood by Pulse oximetry 2021-11-12 04:15:00 98 /min [facility] Body height 2021-11-12 00:41:00 157.5 cm [facility] Body weight 2021-11-12 00:41:00 95.255 kg [facility] BMI 2021-11-12 00:41:00 38.41 kg/m2 [facility] Systolic blood pressure 2021-09-12 01:31:00 142 mm[Hg] [facility] Diastolic blood pressure 2021-09-12 01:31:00 80 mm[Hg] [facility] Heart rate 2021-09-12 01:31:00 78 /min [facility] Body temperature 2021-09-12 01:31:00 36.72 Latanya [facility] Respiratory rate 2021-09-12 01:31:00 18 /min [facility] Body height 2021-09-12 01:31:00 157.5 cm [facility] Body weight 2021-09-12 01:31:00 99.791 kg [facility] BMI 2021-09-12 01:31:00 40.24 kg/m2 [facility] Oxygen saturation in Arterial blood by Pulse oximetry 2021-09-12 01:31:00 97 /min [facility] Systolic blood pressure 2021-08-15 08:20:00 120 mm[Hg] [facility] Diastolic blood pressure 2021-08-15 08:20:00 74 mm[Hg] [facility] Heart rate 2021-08-15 08:20:00 69 /min [facility] Respiratory rate 2021-08-15 08:20:00 20 /min [facility] Oxygen saturation in Arterial blood by Pulse oximetry 2021-08-15 08:20:00 96 /min [facility] Body temperature 2021-08-15 05:34:00 36.22 Latanya [facility] Body height 2021-08-15 05:34:00 157.5 cm [facility] Body weight 2021-08-15 05:34:00 99.791 kg [facility] BMI 2021-08-15 05:34:00 40.24 kg/m2 [facility] Systolic blood pressure 2021-05-28 10:00:00 122 mm[Hg] [facility] Diastolic blood pressure 2021-05-28 10:00:00 78 mm[Hg] [facility] Heart rate 2021-05-28 10:00:00 75 /min [facility] Respiratory rate 2021-05-28 10:00:00 20 /min [facility] Oxygen saturation in Arterial blood by Pulse oximetry 2021-05-28 10:00:00 99 /min [facility] Body temperature 2021-05-28 05:21:00 36.11 Latanya [facility] Body height 2021-05-28 05:21:00 157.5 cm [facility] Body weight 2021-05-28 05:21:00 99.791 kg [facility] BMI 2021-05-28 05:21:00 40.24 kg/m2 [facility] Systolic blood pressure 2021-04-08 21:55:00 110 mm[Hg] [facility] Diastolic blood pressure 2021-04-08 21:55:00 80 mm[Hg] [facility] Heart rate 2021-04-08 21:55:00 70 /min [facility] Body temperature 2021-04-08 21:55:00 36.28 Latanya [facility] Respiratory rate 2021-04-08 21:55:00 16 /min [facility] Oxygen saturation in Arterial blood by Pulse oximetry 2021-04-08 21:55:00 94 /min [facility] Body height 2021-04-08 03:00:00 157.5 cm [facility] Body weight 2021-04-08 03:00:00 105.688 kg [facility] BMI 2021-04-08 03:00:00 42.62 kg/m2 [facility] Systolic blood pressure 2021-01-12 09:00:00 147 mm[Hg] [facility] Diastolic blood pressure 2021-01-12 09:00:00 71 mm[Hg] [facility] Heart rate 2021-01-12 09:00:00 103 /min [facility] Respiratory rate 2021-01-12 09:00:00 18 /min [facility] Oxygen saturation in Arterial blood by Pulse oximetry 2021-01-12 09:00:00 97 /min [facility] Body temperature 2021-01-12 07:48:00 37.06 Latanya [facility] Body height 2021-01-12 07:48:00 157.5 cm [facility] Body weight 2021-01-12 07:48:00 102.513 kg [facility] BMI 2021-01-12 07:48:00 41.34 kg/m2 [facility] Systolic blood pressure 2020-12-11 01:30:00 136 mm[Hg] [facility] Diastolic blood pressure 2020-12-11 01:30:00 88 mm[Hg] [facility] Heart rate 2020-12-11 01:30:00 99 /min [facility] Respiratory rate 2020-12-11 01:30:00 28 /min [facility] Oxygen saturation in Arterial blood by Pulse oximetry 2020-12-11 01:30:00 97 /min [facility] Body temperature 2020-12-10 22:11:00 36.78 Latanya [facility] Body weight 2020-12-10 22:11:00 99.791 kg [facility] BMI 2020-12-10 22:11:00 40.24 kg/m2 [facility] Systolic blood pressure 2020-12-04 21:30:00 126 mm[Hg] [facility] Diastolic blood pressure 2020-12-04 21:30:00 79 mm[Hg] [facility] Heart rate 2020-12-04 21:30:00 91 /min [facility] Respiratory rate 2020-12-04 21:30:00 20 /min [facility] Oxygen saturation in Arterial blood by Pulse oximetry 2020-12-04 21:30:00 96 /min [facility] Body temperature 2020-12-04 19:49:00 37.06 Latanya [facility] Body height 2020-12-04 19:49:00 157.5 cm [facility] Body weight 2020-12-04 19:49:00 99.791 kg [facility] BMI 2020-12-04 19:49:00 40.24 kg/m2 [facility] Systolic blood pressure 2020-11-04 01:42:00 142 mm[Hg] [facility] Diastolic blood pressure 2020-11-04 01:42:00 100 mm[Hg] [facility] Heart rate 2020-11-04 01:42:00 109 /min [facility] Body temperature 2020-11-04 01:42:00 36.78 Latanya [facility] Respiratory rate 2020-11-04 01:42:00 20 /min [facility] Body weight 2020-11-04 01:42:00 99.791 kg [facility] BMI 2020-11-04 01:42:00 40.24 kg/m2 [facility] Oxygen saturation in Arterial blood by Pulse oximetry 2020-11-04 01:42:00 98 /min [facility] Systolic blood pressure 2020-09-17 15:52:00 138 mm[Hg] [facility] Diastolic blood pressure 2020-09-17 15:52:00 94 mm[Hg] [facility] Heart rate 2020-09-17 15:52:00 98 /min [facility] Body temperature 2020-09-17 15:52:00 36.94 Latanya [facility] Respiratory rate 2020-09-17 15:52:00 20 /min [facility] Body weight 2020-09-17 15:52:00 95.255 kg [facility] BMI 2020-09-17 15:52:00 38.41 kg/m2 [facility] Oxygen saturation in Arterial blood by Pulse oximetry 2020-09-17 15:52:00 97 /min [facility] Systolic blood pressure 2020-09-17 15:52:00 138 mm[Hg] [facility] Diastolic blood pressure 2020-09-17 15:52:00 94 mm[Hg] [facility] Heart rate 2020-09-17 15:52:00 98 /min [facility] Body temperature 2020-09-17 15:52:00 36.94 Latanya [facility] Respiratory rate 2020-09-17 15:52:00 20 /min [facility] Body weight 2020-09-17 15:52:00 95.255 kg [facility] BMI 2020-09-17 15:52:00 38.41 kg/m2 [facility] Oxygen saturation in Arterial blood by Pulse oximetry 2020-09-17 15:52:00 97 /min [facility] Systolic blood pressure 2020-09-07 06:35:00 123 mm[Hg] [facility] Diastolic blood pressure 2020-09-07 06:35:00 56 mm[Hg] [facility] Heart rate 2020-09-07 06:35:00 97 /min [facility] Body temperature 2020-09-07 06:35:00 36.28 Latanya [facility] Respiratory rate 2020-09-07 06:35:00 18 /min [facility] Body weight 2020-09-07 06:35:00 99.791 kg [facility] BMI 2020-09-07 06:35:00 40.24 kg/m2 [facility] Oxygen saturation in Arterial blood by Pulse oximetry 2020-09-07 06:35:00 98 /min [facility] Systolic blood pressure 2020-09-07 06:35:00 123 mm[Hg] [facility] Diastolic blood pressure 2020-09-07 06:35:00 56 mm[Hg] [facility] Heart rate 2020-09-07 06:35:00 97 /min [facility] Body temperature 2020-09-07 06:35:00 36.28 Latanya [facility] Respiratory rate 2020-09-07 06:35:00 18 /min [facility] Body weight 2020-09-07 06:35:00 99.791 kg [facility] BMI 2020-09-07 06:35:00 40.24 kg/m2 [facility] Oxygen saturation in Arterial blood by Pulse oximetry 2020-09-07 06:35:00 98 /min [facility] Systolic blood pressure 2020-08-28 09:00:00 132 mm[Hg] [facility] Diastolic blood pressure 2020-08-28 09:00:00 87 mm[Hg] [facility] Heart rate 2020-08-28 09:00:00 90 /min [facility] Respiratory rate 2020-08-28 09:00:00 20 /min [facility] Oxygen saturation in Arterial blood by Pulse oximetry 2020-08-28 09:00:00 97 /min [facility] Body temperature 2020-08-28 07:59:00 36.72 Latanya [facility] Body height 2020-08-28 07:59:00 157.5 cm [facility] Body weight 2020-08-28 07:59:00 99.791 kg [facility] BMI 2020-08-28 07:59:00 40.24 kg/m2 [facility] Systolic blood pressure 2020-08-28 09:00:00 132 mm[Hg] [facility] Diastolic blood pressure 2020-08-28 09:00:00 87 mm[Hg] [facility] Heart rate 2020-08-28 09:00:00 90 /min [facility] Respiratory rate 2020-08-28 09:00:00 20 /min [facility] Oxygen saturation in Arterial blood by Pulse oximetry 2020-08-28 09:00:00 97 /min [facility] Body temperature 2020-08-28 07:59:00 36.72 Latanya [facility] Body height 2020-08-28 07:59:00 157.5 cm [facility] Body weight 2020-08-28 07:59:00 99.791 kg [facility] BMI 2020-08-28 07:59:00 40.24 kg/m2 [facility] Systolic blood pressure 2020-08-14 19:40:00 135 mm[Hg] [facility] Diastolic blood pressure 2020-08-14 19:40:00 100 mm[Hg] [facility] Heart rate 2020-08-14 19:40:00 68 /min [facility] Body temperature 2020-08-14 19:40:00 37.11 Latanya [facility] Respiratory rate 2020-08-14 19:40:00 19 /min [facility] Oxygen saturation in Arterial blood by Pulse oximetry 2020-08-14 19:40:00 99 /min [facility] Body height 2020-08-14 17:41:00 157.5 cm [facility] Body weight 2020-08-14 17:41:00 99.791 kg [facility] BMI 2020-08-14 17:41:00 40.24 kg/m2 [facility] Systolic blood pressure 2020-08-14 19:40:00 135 mm[Hg] [facility] Diastolic blood pressure 2020-08-14 19:40:00 100 mm[Hg] [facility] Heart rate 2020-08-14 19:40:00 68 /min [facility] Body temperature 2020-08-14 19:40:00 37.11 Latanya [facility] Respiratory rate 2020-08-14 19:40:00 19 /min [facility] Oxygen saturation in Arterial blood by Pulse oximetry 2020-08-14 19:40:00 99 /min [facility] Body height 2020-08-14 17:41:00 157.5 cm [facility] Body weight 2020-08-14 17:41:00 99.791 kg [facility] BMI 2020-08-14 17:41:00 40.24 kg/m2 [facility] Systolic blood pressure 2020-08-11 04:00:00 106 mm[Hg] [facility] Diastolic blood pressure 2020-08-11 04:00:00 92 mm[Hg] [facility] Heart rate 2020-08-11 04:00:00 90 /min [facility] Respiratory rate 2020-08-11 04:00:00 16 /min [facility] Oxygen saturation in Arterial blood by Pulse oximetry 2020-08-11 04:00:00 99 /min [facility] Body temperature 2020-08-11 03:12:56 37.72 Latanya [facility] Body height 2020-08-11 00:19:00 157.5 cm [facility] Body weight 2020-08-11 00:19:00 99.791 kg [facility] BMI 2020-08-11 00:19:00 40.24 kg/m2 [facility] Systolic blood pressure 2020-08-11 04:00:00 106 mm[Hg] [facility] Diastolic blood pressure 2020-08-11 04:00:00 92 mm[Hg] [facility] Heart rate 2020-08-11 04:00:00 90 /min [facility] Respiratory rate 2020-08-11 04:00:00 16 /min [facility] Oxygen saturation in Arterial blood by Pulse oximetry 2020-08-11 04:00:00 99 /min [facility] Body temperature 2020-08-11 03:12:56 37.72 Latanya [facility] Body height 2020-08-11 00:19:00 157.5 cm [facility] Body weight 2020-08-11 00:19:00 99.791 kg [facility] BMI 2020-08-11 00:19:00 40.24 kg/m2 [facility] Systolic blood pressure 2020-08-07 13:16:00 100 mm[Hg] [facility] Diastolic blood pressure 2020-08-07 13:16:00 69 mm[Hg] [facility] Heart rate 2020-08-07 13:16:00 99 /min [facility] Body temperature 2020-08-07 13:16:00 36.67 Latanya [facility] Respiratory rate 2020-08-07 13:16:00 18 /min [facility] Body weight 2020-08-07 13:16:00 95.255 kg [facility] BMI 2020-08-07 13:16:00 38.41 kg/m2 [facility] Oxygen saturation in Arterial blood by Pulse oximetry 2020-08-07 13:16:00 99 /min [facility] Systolic blood pressure 2020-08-07 13:16:00 100 mm[Hg] [facility] Diastolic blood pressure 2020-08-07 13:16:00 69 mm[Hg] [facility] Heart rate 2020-08-07 13:16:00 99 /min [facility] Body temperature 2020-08-07 13:16:00 36.67 Latanya [facility] Respiratory rate 2020-08-07 13:16:00 18 /min [facility] Body weight 2020-08-07 13:16:00 95.255 kg [facility] BMI 2020-08-07 13:16:00 38.41 kg/m2 [facility] Oxygen saturation in Arterial blood by Pulse oximetry 2020-08-07 13:16:00 99 /min [facility] Systolic blood pressure 2020-07-01 02:00:00 136 mm[Hg] [facility] Diastolic blood pressure 2020-07-01 02:00:00 85 mm[Hg] [facility] Heart rate 2020-07-01 02:00:00 73 /min [facility] Respiratory rate 2020-07-01 02:00:00 20 /min [facility] Oxygen saturation in Arterial blood by Pulse oximetry 2020-07-01 02:00:00 97 /min [facility] Body temperature 2020-06-30 23:36:00 36.56 Latanya [facility] Body height 2020-06-30 23:36:00 157.5 cm [facility] Body weight 2020-06-30 23:36:00 95.255 kg [facility] BMI 2020-06-30 23:36:00 38.41 kg/m2 [facility] Systolic blood pressure 2020-07-01 02:00:00 136 mm[Hg] [facility] Diastolic blood pressure 2020-07-01 02:00:00 85 mm[Hg] [facility] Heart rate 2020-07-01 02:00:00 73 /min [facility] Respiratory rate 2020-07-01 02:00:00 20 /min [facility] Oxygen saturation in Arterial blood by Pulse oximetry 2020-07-01 02:00:00 97 /min [facility] Body temperature 2020-06-30 23:36:00 36.56 Latanya [facility] Body height 2020-06-30 23:36:00 157.5 cm [facility] Body weight 2020-06-30 23:36:00 95.255 kg [facility] BMI 2020-06-30 23:36:00 38.41 kg/m2 [facility] Systolic blood pressure 2020-06-28 21:57:00 151 mm[Hg] [facility] Diastolic blood pressure 2020-06-28 21:57:00 88 mm[Hg] [facility] Heart rate 2020-06-28 21:57:00 94 /min [facility] Body temperature 2020-06-28 21:57:00 37.78 Latanya [facility] Respiratory rate 2020-06-28 21:57:00 16 /min [facility] Body height 2020-06-28 21:57:00 157.5 cm [facility] Body weight 2020-06-28 21:57:00 95.255 kg [facility] BMI 2020-06-28 21:57:00 38.41 kg/m2 [facility] Oxygen saturation in Arterial blood by Pulse oximetry 2020-06-28 21:57:00 96 /min [facility] Systolic blood pressure 2020-06-28 21:57:00 151 mm[Hg] [facility] Diastolic blood pressure 2020-06-28 21:57:00 88 mm[Hg] [facility] Heart rate 2020-06-28 21:57:00 94 /min [facility] Body temperature 2020-06-28 21:57:00 37.78 Latanya [facility] Respiratory rate 2020-06-28 21:57:00 16 /min [facility] Body height 2020-06-28 21:57:00 157.5 cm [facility] Body weight 2020-06-28 21:57:00 95.255 kg [facility] BMI 2020-06-28 21:57:00 38.41 kg/m2 [facility] Oxygen saturation in Arterial blood by Pulse oximetry 2020-06-28 21:57:00 96 /min [facility] Systolic blood pressure 2020-06-13 03:40:00 122 mm[Hg] [facility] Diastolic blood pressure 2020-06-13 03:40:00 78 mm[Hg] [facility] Heart rate 2020-06-13 03:40:00 90 /min [facility] Respiratory rate 2020-06-13 03:40:00 18 /min [facility] Oxygen saturation in Arterial blood by Pulse oximetry 2020-06-13 03:40:00 94 /min [facility] Body temperature 2020-06-12 23:39:00 37.22 Latanya [facility] Body weight 2020-06-12 23:39:00 97.07 kg [facility] BMI 2020-06-12 23:39:00 39.14 kg/m2 [facility] Systolic blood pressure 2020-06-13 03:40:00 122 mm[Hg] [facility] Diastolic blood pressure 2020-06-13 03:40:00 78 mm[Hg] [facility] Heart rate 2020-06-13 03:40:00 90 /min [facility] Respiratory rate 2020-06-13 03:40:00 18 /min [facility] Oxygen saturation in Arterial blood by Pulse oximetry 2020-06-13 03:40:00 94 /min [facility] Body temperature 2020-06-12 23:39:00 37.22 Latanya [facility] Body weight 2020-06-12 23:39:00 97.07 kg [facility] BMI 2020-06-12 23:39:00 39.14 kg/m2 [facility] Heart rate 2020-05-17 00:40:00 82 /min [facility] Respiratory rate 2020-05-17 00:40:00 18 /min [facility] Oxygen saturation in Arterial blood by Pulse oximetry 2020-05-17 00:40:00 95 /min [facility] Systolic blood pressure 2020-05-17 00:00:00 137 mm[Hg] [facility] Diastolic blood pressure 2020-05-17 00:00:00 93 mm[Hg] [facility] Body temperature 2020-05-16 23:17:00 37.61 Latanya [facility] Body weight 2020-05-16 23:17:00 97.07 kg [facility] BMI 2020-05-16 23:17:00 39.14 kg/m2 [facility] Heart rate 2020-05-17 00:40:00 82 /min [facility] Respiratory rate 2020-05-17 00:40:00 18 /min [facility] Oxygen saturation in Arterial blood by Pulse oximetry 2020-05-17 00:40:00 95 /min [facility] Systolic blood pressure 2020-05-17 00:00:00 137 mm[Hg] [facility] Diastolic blood pressure 2020-05-17 00:00:00 93 mm[Hg] [facility] Body temperature 2020-05-16 23:17:00 37.61 Latanya [facility] Body weight 2020-05-16 23:17:00 97.07 kg [facility] BMI 2020-05-16 23:17:00 39.14 kg/m2 [facility] Systolic blood pressure 2020-05-15 08:50:00 131 mm[Hg] [facility] Diastolic blood pressure 2020-05-15 08:50:00 80 mm[Hg] [facility] Heart rate 2020-05-15 08:50:00 70 /min [facility] Respiratory rate 2020-05-15 08:50:00 18 /min [facility] Oxygen saturation in Arterial blood by Pulse oximetry 2020-05-15 08:50:00 97 /min [facility] Body temperature 2020-05-15 05:29:00 36.44 Latanya [facility] Body height 2020-05-15 05:29:00 157.5 cm [facility] Body weight 2020-05-15 05:29:00 97.07 kg Simultaneous filing. User may not have seen previous data. [facility] BMI 2020-05-15 05:29:00 39.14 kg/m2 [facility] Systolic blood pressure 2020-05-15 08:50:00 131 mm[Hg] [facility] Diastolic blood pressure 2020-05-15 08:50:00 80 mm[Hg] [facility] Heart rate 2020-05-15 08:50:00 70 /min [facility] Respiratory rate 2020-05-15 08:50:00 18 /min [facility] Oxygen saturation in Arterial blood by Pulse oximetry 2020-05-15 08:50:00 97 /min [facility] Body temperature 2020-05-15 05:29:00 36.44 Latanya [facility] Body height 2020-05-15 05:29:00 157.5 cm [facility] Body weight 2020-05-15 05:29:00 97.07 kg Simultaneous filing. User may not have seen previous data. [facility] BMI 2020-05-15 05:29:00 39.14 kg/m2 [facility] Procedures Procedure Date / Time Performed Performing Clinician Source CT ABDOMEN PELVIS W CONTRAST 2023-10-11 04:08:24 Olivia Garcia [facility] POCT TEST 2023-10-11 03:40:00 Olivia Garcia [facility] LIPASE 2023-10-11 03:25:00 Olivia Garcia [facility] COMP. METABOLIC PANEL ([id number]) 2023-10-11 03:25:00 Olivia Garcia [facility] CBC WITH DIFF 2023-10-11 03:25:00 Olivia Garcia [facility] URINALYSIS 2023-10-11 03:25:00 Olivia Garcia [facility] XR KUB 2023-07-02 03:34:07 Roberto Richards [facility] POCT TEST 2023-07-02 02:30:00 Alberta Richards [facility] LIPASE 2023-07-02 02:05:00 Roberto Richards [facility] COMP. METABOLIC PANEL ([id number]) 2023-07-02 02:05:00 Roberto Richards [facility] CBC WITH DIFF 2023-07-02 02:05:00 Roberto Richards [facility] URINALYSIS 2023-07-02 02:05:00 Roberto Richards [facility] URINE DRUG (IMMUNOASSAY) - COMPREHENSIVE DRUG SCREEN W/O REFLEX 2023-07-02 02:05:00 Roberto Richards [facility] CONSENT/REFUSAL FOR DIAGNOSIS AND TREATMENT 2023-07-02 01:43:05 Doctor Unassigned, [employer] [facility] LIPASE 2023-05-09 22:47:[address] [facility] COMP. METABOLIC PANEL ([id number]) 2023-05-09 22:47:00 Narayan Narvaez [facility] CBC WITH DIFF 2023-05-09 22:47:00 Narayan Narvaez [facility] CONSENT/REFUSAL FOR DIAGNOSIS AND TREATMENT 2023-05-09 22:32:48 Doctor Unassigned, [employer] [facility] CT ABDOMEN PELVIS W CONTRAST 2023-04-30 23:47:56 Narayan Narvaez [facility] COMP. METABOLIC PANEL ([id number]) 2023-04-30 23:08:00 Narayan Narvaez [facility] CBC WITH DIFF 2023-04-30 23:08:00 Narayan Narvaez [facility] POCT TEST 2023-04-30 22:59:00 Jaquan Narvaez [facility] URINALYSIS 2023-04-30 22:57:00 Narayan Narvaez [facility] CONSENT/REFUSAL FOR DIAGNOSIS AND TREATMENT 2023-04-30 22:14:38 Doctor Unassigned, [employer] [facility] XR ABDOMEN ACUTE SERIES 2023-04-17 02:13:44 Do minal Richards [facility] POCT TEST 2023-04-17 02:11:00 Alberta Richards [facility] LIPASE 2023-04-17 02:04:00 Roberto Richards [facility] TROPONIN I 2023-04-17 02:04:00 Roberto Richards [facility] COMP. METABOLIC PANEL ([id number]) 2023-04-17 02:04:00 Roberto Richards [facility] CBC WITH DIFF 2023-04-17 02:04:00 Roberto Richards [facility] PROTHROMBIN TIME / INR 2023-04-17 02:04:00 Jalen Richards [facility] ACTIVATED PARTIAL THRMPLAS MARCIO 2023-04-17 02:04:00 Roberto Richards [facility] URINALYSIS 2023-04-17 02:04:00 Roberto Richards [facility] N-TERMINAL PRO-BNP 2023-04-17 02:04:00 Roberto Richards [facility] URINE DRUG (IMMUNOASSAY) - COMPREHENSIVE DRUG SCREEN W/O REFLEX 2023-04-17 02:04:00 Roberto Richards [facility] CONSENT/REFUSAL FOR DIAGNOSIS AND TREATMENT 2023-04-17 01:22:36 Doctor Unassigned, [employer] [facility] URINALYSIS 2023-04-09 01:02:00 Saleem Edward [facility] LIPASE 2023-04-08 23:15:00 Saleem Edward [facility] MAGNESIUM 2023-04-08 23:15:00 Saleem Edward [facility] TROPONIN I 2023-04-08 23:15:00 Slaeem Edward [facility] COMP. METABOLIC PANEL ([id number]) 2023-04-08 23:15:00 Saleem Edward [facility] CBC WITH DIFF 2023-04-08 23:15:00 Saleem Edward [facility] CONSENT/REFUSAL FOR DIAGNOSIS AND TREATMENT 2023-04-08 21:57:42 Doctor Unassigned, [employer] [facility] CT ABDOMEN PELVIS W CONTRAST 2023-03-10 03:38:58 Roberto Richards [facility] POCT TEST 2023-03-10 02:51:00 Alberta Richards [facility] URINALYSIS 2023-03-10 01:49:00 Roberto Richards [facility] LIPASE 2023-03-10 01:46:00 Roberto Richards [facility] COMP. METABOLIC PANEL ([id number]) 2023-03-10 01:46:00 Roberto Richards [facility] CBC WITH DIFF 2023-03-10 01:46:00 Roberto Richards [facility] CONSENT/REFUSAL FOR DIAGNOSIS AND TREATMENT 2023-03-10 01:36:24 Doctor Unassigned, [employer] [facility] CONSENT/REFUSAL FOR DIAGNOSIS AND TREATMENT 2023-03-10 01:14:40 Doctor Unassigned, [employer] [facility] CT ABDOMEN PELVIS W CONTRAST 2023-03-02 05:16:35 Olivia Garcia [facility] POCT TEST 2023-03-02 03:26:00 Olivia Garcia [facility] LIPASE 2023-03-02 03:23:00 Olivia Garcia [facility] COMP. METABOLIC PANEL ([id number]) 2023-03-02 03:23:00 Olivia Garcia [facility] CBC WITH DIFF 2023-03-02 03:23:00 Olivia Garcia [facility] URINALYSIS 2023-03-02 03:23:00 Olivia Garcia [facility] CONSENT/REFUSAL FOR DIAGNOSIS AND TREATMENT 2023-03-02 00:22:44 Doctor Unassigned, [employer] [facility] CONSENT/REFUSAL FOR DIAGNOSIS AND TREATMENT 2023-02-18 03:44:46 Doctor Unassigned, [employer] [facility] LIPASE 2023-02-17 09:28:00 Jesús Montero [facility] HEPATIC FUNCTION PANEL ([id number]) (ALB,T.PRO,BILI T,BU/BC,ALT,AST,ALK PHOS) 2023-02-17 09:28:[address] [facility] BASIC METABOLIC PANEL (NA, K, CL, CO2, GLUCOSE, BUN, CREATININE, CA) 2023-02-17 09:28:[address] [facility] CBC WITH DIFF 2023-02-17 09:28:00 Kylah [facility] LIPASE 2023-02-16 18:24:00 Kylah [facility] HEPATIC FUNCTION PANEL ([id number]) (ALB,T.PRO,BILI T,BU/BC,ALT,AST,ALK PHOS) 2023-02-16 18:24:[address] [facility] BASIC METABOLIC PANEL (NA, K, CL, CO2, GLUCOSE, BUN, CREATININE, CA) 2023-02-16 18:24:[address] [facility] CBC WITH DIFF 2023-02-16 18:23:00 [facility] 2023-02-15 23:29:00 Leeanne Wise [facility] LIPASE 2023-02-15 21:45:00 Leeanne Wise [facility] COMP. METABOLIC PANEL ([id number]) 2023-02-15 21:45:00 eLeanne Wise [facility] CBC WITH DIFF 2023-02-15 21:45:00 Leeanne Wise [facility] D-DIMER 2023-02-15 19:55:00 Leeanne Wise [facility] URINALYSIS 2023-02-15 19:50:00 Leeanne Wise [facility] RAPID INFLUENZA A/B 2023-02-15 19:50:00 Leeanne Wise [facility] COVID-19 (ID NOW RAPID TESTING) 2023-02-15 19:50:00 Leeanne Wise [facility] XR CHEST 1 VW 2023-02-15 19:38:00 [facility] 2023-02-15 19:26:58 Docto r Unassigned, [employer] [facility] HB ECG ROUTINE & RHYTHM STRIP 2023-02-15 19:07:40 Leeanne Wise [facility] NOTICE OF PRIVACY PRACTICES 2023-02-15 18:24:07 Doctor Unassigned, [employer] [facility] CONSENT/REFUSAL FOR DIAGNOSIS AND TREATMENT 2023-02-15 18:23:04 Doctor Unassigned, [employer] [facility] TROPONIN I 2022-01-10 00:32:00 Melida Longoria [facility] TROPONIN I 2022-01-09 22:17:00 Melida Longoria [facility] BASIC METABOLIC PANEL (NA, K, CL, CO2, GLUCOSE, BUN, CREATININE, CA) 2022-01-09 22:17:00 Melida Longoria [facility] CBC WITH DIFF 2022-01-09 22:17:00 Melida Longoria [facility] N-TERMINAL PRO-BNP 2022-01-09 22:17:00 Melida Longoria [facility] XR CHEST 1 VW 2022-01-09 22:11:00 Melida Longoria [facility] CONSENT/REFUSAL FOR DIAGNOSIS AND TREATMENT 2022-01-09 21:34:15 Doctor Unassigned, [employer] [facility] TROPONIN I 2021-12-14 05:39:00 Wil Mcqueen [facility] XR CHEST 1 VW 2021-12-14 04:39:00 Wil Mcqueen [facility] POCT TEST 2021-12-14 04:20:00 Wil Mcqueen [facility] URINALYSIS 2021-12-14 03:57:00 Wil Mcqueen [facility] LIPASE 2021-12-14 03:43:00 Wil Mcqueen [facility] TROPONIN I 2021-12-14 03:43:00 Wil Mcqueen [facility] FREE T4 2021-12-14 03:43:[address] [facility] THYROID STIMULATING HORMONE 2021-12-14 03:43:00 Wil Mcqueen [facility] COMP. METABOLIC PANEL ([id number]) 2021-12-14 03:43:00 Wil Mcqueen [facility] CBC WITH DIFF 2021-12-14 03:43:00 Wil Mcqueen [facility] FREE T3 2021-12-14 03:43:[address] [facility] CONSENT/REFUSAL FOR DIAGNOSIS AND TREATMENT 2021-12-14 02:58:21 Doctor Unassigned, [employer] [facility] TROPONIN I 2021-11-12 03:04:00 Dee Wang [facility] POCT TEST 2021-11-12 02:56:00 Tra Wang [facility] URINE DRUG (IMMUNOASSAY) - COMPREHENSIVE DRUG SCREEN 2021-11-12 02:30:00 Dee Wang [facility] URINALYSIS 2021-11-12 02:30:00 Dee Wang [facility] XR CHEST 2 VW 2021-11-12 01:45:03 Dee Wang [facility] LIPASE 2021-11-12 01:34:00 Dee Wang [facility] TROPONIN I 2021-11-12 01:34:00 Dee Wang [facility] COMP. METABOLIC PANEL ([id number]) 2021-11-12 01:34:00 Dee Wang [facility] CBC WITH DIFF 2021-11-12 01:34:00 Dee Wang [facility] N-TERMINAL PRO-BNP 2021-11-12 01:34:00 Mckinley Wang [facility] CONSENT/REFUSAL FOR DIAGNOSIS AND TREATMENT 2021-11-12 00:36:34 Doctor Unassigned, [employer] [facility] CT ABDOMEN PELVIS W CONTRAST 2021-09-12 02:49:43 Dee Wang [facility] COVID-19 (ID NOW RAPID TESTING) 2021-09-12 02:23:00 Dee Wang [facility] POCT TEST 2021-09-12 02:21:00 Tra Wang [facility] POCT TEST 2021-09-12 01:45:00 Olivia Garcia [facility] URINALYSIS 2021-09-12 01:43:00 Olivia Garcia [facility] LIPASE 2021-09-12 01:40:00 Olivia Garcia [facility] COMP. METABOLIC PANEL (43326) 2021-09-12 01:40:00 Olivia Garcia [facility] CBC WITH DIFF 2021-09-12 01:40:00 Olivia Garcia [facility] CONSENT/REFUSAL FOR DIAGNOSIS AND TREATMENT 2021-09-12 01:26:55 Doctor Unassigned, [employer] [facility] XR LUMBAR SPINE 1 VW 2021-08-15 07:03:00 Angeles Garcia i [facility] URINALYSIS 2021-08-15 06:35:00 Olivia Garcia [facility] POCT TEST 2021-08-15 06:35:00 Olivia Garcia [facility] NOTICE OF PRIVACY PRACTICES 2021-08-15 06:01:56 Doctor Unassigned, [employer] [facility] CONSENT/REFUSAL FOR DIAGNOSIS AND TREATMENT 2021-08-15 05:25:54 Doctor Unassigned, [employer] [facility] TROPONIN I 2021-05-28 07:50:00 Cem Choi [facility] D-DIMER 2021-05-28 07:05:00 Cem Choi [facility] XR CHEST 2 VW 2021-05-28 05:46:[facility] 2021-05-28 05:32:00 Cem Choi [facility] LIPASE 2021-05-28 05:29:00 Cem Choi [facility] TROPONIN I 2021-05-28 05:29:00 Cem Choi [facility] COMP. METABOLIC PANEL (62594) 2021-05-28 05:29:00 Cem Choi [facility] CBC WITH DIFF 2021-05-28 05:29:00 Cem Choi [facility] N-TERMINAL PRO-BNP 2021-05-28 05:29:00 Cem Choi [facility] COVID-19 (ID NOW RAPID TESTING) 2021-05-28 05:29:00 [facility] TROPONIN I 2021-04-08 10:01:00 Brittni Romero [facility] BASIC METABOLIC PANEL (NA, K, CL, CO2, GLUCOSE, BUN, CREATININE, CA) 2021-04-08 10:01:00 Brittni Romero [facility] CBC WITH DIFF 2021-04-08 10:01:00 Brittni Romero Rocio [facility] TROPONIN I 2021-04-08 04:12:00 Brittni Romero [facility] XR CHEST 1 VW 2021-04-07 22:33:33 Roberto Richards [facility] LIPASE 2021-04-07 21:52:[address] [facility] MAGNESIUM 2021-04-07 21:52:00 Brittni Romero [facility] TROPONIN I 2021-04-07 21:52:[address] [facility] THYROID STIMULATING HORMONE 2021-04-07 21:52:00 Brittni Romero [facility] COMP. METABOLIC PANEL (83582) 2021-04-07 21:52:00 Roberto Richards [facility] LIPID PANEL (77048)(TOTAL CHOLESTEROL, TRIGLYCERIDES, HDL) 2021-04-07 21:52:00 [facility]FF 2021-04-07 21:52:00 Roberto Richards [facility] GLYCOSYLATED HEMOGLOBIN (A1C) 2021-04-07 21:52:00 Brittni Romero [facility] PROTHROMBIN TIME / INR 2021-04-07 21:52:00 Jalen Richards [facility] ACTIVATED PARTIAL THRMPLAS MARCIO 2021-04-07 21:52:00 Roberto Richards [facility] N-TERMINAL PRO-BNP 2021-04-07 21:52:00 Roberto Richards [facility] COVID-19 (ID NOW RAPID TESTING) 2021-04-07 21:51:00 Roberto Richards [facility] HB ECG ROUTINE & RHYTHM STRIP 2021-04-07 21:38:41 Maurice [facility] CONSENT/REFUSAL FOR DIAGNOSIS AND TREATMENT 2021-04-07 21:17:47 Doctor Unassigned, [employer] [facility] CT ABDOMEN PELVIS WO CONTRAST 2021-01-12 08:10:17 [facility] 2021-01-12 08:02:00 Jaquan Narvaez [facility] URINALYSIS 2021-01-12 07:58:00 Narayan Narvaez [facility] COMP. METABOLIC PANEL (13919) 2021-01-12 07:56:00 Narayan Narvaez [facility] CBC WITH DIFF 2021-01-12 07:56:00 Narayan Narvaez [facility] TROPONIN I 2020-12-11 00:47:00 Bal Hassan [facility] XR CHEST 1 VW 2020-12-10 22:40:57 Bal Hassan [facility] POCT TEST 2020-12-10 22:32:00 Suzanna Hassan [facility] URINALYSIS 2020-12-10 22:30:00 Bal Hassan [facility] LIPASE 2020-12-10 22:24:00 Bal Hassan [facility] TROPONIN I 2020-12-10 22:24:00 Hassan, [facility] HEPATIC FUNCTION PANEL (83354) (ALB,T.PRO,BILI T,BU/BC,ALT,AST,ALK PHOS) 2020-12-10 22:24:00 Bal Hassan [facility] BASIC METABOLIC PANEL (NA, K, CL, CO2, GLUCOSE, BUN, CREATININE, CA) 2020-12-10 22:24:00 Bal Hassan [facility] CBC WITH DIFF 2020-12-10 22:24:00 Bal Hassan [facility] D-DIMER 2020-12-10 [facility] 2020-12-10 22:24:00 Mirtha Hassan [facility] POCT TEST 2020-12-04 21:18:00 Hernan [facility] URINALYSIS 2020-12-04 21:17:00 Hernan [facility] LIPASE 2020-12-04 20:20:00 Hernan [facility] TROPONIN I 2020-12-04 20:20:00 Hernan [facility] HEPATIC FUNCTION PANEL (39146) (ALB,T.PRO,BILI T,BU/BC,ALT,AST,ALK PHOS) 2020-12-04 20:20:00 Hernan [facility] BASIC METABOLIC PANEL (NA, K, CL, CO2, GLUCOSE, BUN, CREATININE, CA) 2020-12-04 20:20:00 Hernan [facility] CBC WITH DIFF 2020-12-04 20:20:00 Tremaine Becerra [facility] XR CHEST 1 VW 2020-12-04 20:16:[address] [facility] XR ANKLE 3+ VW LEFT 2020-12-04 20:16:54 Hernan [facility] CONSENT/REFUSAL FOR DIAGNOSIS AND TREATMENT 2020-12-04 19:43:45 Doctor Unassigned, [employer] [facility] XR CHEST 1 VW 2020-11-04 02:24:02 Olivia Garcia [facility] URINE DRUG (IMMUNOASSAY) - 4 ER PANEL 2020-11-04 02:19:00 Olivia Garcia [facility] URINALYSIS 2020-11-04 02:19:00 Olivia Garcia [facility] LIPASE 2020-11-04 02:16:00 Olivia Garcia [facility] TROPONIN I 2020-11-04 02:16:00 Olivia Garcia [facility] COMP. METABOLIC PANEL ([id number]) 2020-11-04 02:16:00 Olivia Garcia [facility] CBC WITH DIFF 2020-11-04 02:16:00 Olivia Garcia [facility] PROTHROMBIN TIME / INR 2020-11-04 02:16:00 Lucia Garcia [facility] ACTIVATED PARTIAL THRMPLAS MARCIO 2020-11-04 02:16:00 Olivia Garcia [facility] CONSENT/REFUSAL FOR DIAGNOSIS AND TREATMENT 2020-11-04 01:11:16 Doctor Unassigned, [employer] [facility] XR CHEST 1 VW 2020-09-17 17:32:21 Leeanne Wise [facility] RAPID STREP SCREEN FOR GROUP A 2020-09-17 16:31:00 Leeanne Wise [facility] COVID-19 (ID NOW RAPID TESTING) 2020-09-17 16:31:00 Leeanne Wise [facility] NOTICE OF PRIVACY PRACTICES 2020-09-17 15:47:38 Doctor Unassigned, [employer] [facility] CONSENT/REFUSAL FOR DIAGNOSIS AND TREATMENT 2020-09-17 15:47:07 Doctor Unassigned, [employer] [facility] XR FOREARM 2 VW LEFT 2020-09-07 06:59:53 Saleem Edward [facility] XR HAND 3+ VW LEFT 2020-09-07 06:59:53 Saleem Edward [facility] NOTICE OF PRIVACY PRACTICES 2020-09-07 06:06:09 Doctor Unassigned, [employer] [facility] CONSENT/REFUSAL FOR DIAGNOSIS AND TREATMENT 2020-09-07 06:03:10 Doctor Unassigned, [employer] [facility] CT ABDOMEN PELVIS W CONTRAST 2020-08-28 09:16:08 Olivia Garcia [facility] POCT TEST 2020-08-28 08:45:00 Olivia Garcia [facility] URINALYSIS 2020-08-28 08:43:00 [facility] 2020-08-28 08:09:00 [facility] COMP. METABOLIC PANEL (45156) 2020-08-28 08:09:00 Olivia Garcia [facility] CBC WITH DIFF 2020-08-28 08:09:00 [facility]W 2020-08-14 18:10:[address] [facility] LIPASE 2020-08-14 17:58:00 Best Taylor [facility] TROPONIN I 2020-08-14 17:58:00 Best Taylor [facility] COMP. METABOLIC PANEL (29678) 2020-08-14 17:58:00 Best Taylor [facility] CBC WITH DIFF 2020-08-14 17:58:00 Best Taylor [facility] URINALYSIS 2020-08-14 17:58:[address] [facility] LACTIC ACID WHOLE BLOOD 2020-08-14 17:58:00 Sophie Taylor [facility] ADC / LCC - DRUG SCREEN TRIAGE 2020-08-14 17:58:00 Best Taylor [facility] CONSENT/REFUSAL FOR DIAGNOSIS AND TREATMENT 2020-08-14 17:33:16 Doctor Unassigned, [employer] [facility] CT ABDOMEN PELVIS WO CONTRAST 2020-08-11 04:11:07 Best Taylor [facility] XR CHEST 1 VW 2020-08-11 03:56:48 Best Taylor [facility] POCT TEST 2020-08-11 03:10:00 Best Taylor [facility] BLOOD CULTURE SCREEN 2020-08-11 02:01:00 Best Taylor [facility] BLOOD CULTURE SCREEN 2020-08-11 01:45:00 Best Taylor [facility] LIPASE 2020-08-11 01:45:[address] [facility] TROPONIN I 2020-08-11 01:45:[address] [facility] HEPATIC FUNCTION PANEL ([id number]) (ALB,T.PRO,BILI T,BU/BC,ALT,AST,ALK PHOS) 2020-08-11 01:45:00 Best Taylor [facility] BASIC METABOLIC PANEL (NA, K, CL, CO2, GLUCOSE, BUN, CREATININE, CA) 2020-08-11 01:45:00 Best Taylor [facility] CBC WITH DIFF 2020-08-11 01:45:00 Best Taylor [facility] URINALYSIS 2020-08-11 01:45:00 Best Taylor [facility] LACTIC ACID WHOLE BLOOD 2020-08-11 01:45:00 Sophie Taylor [facility] COVID-19 (ID NOW RAPID TESTING) 2020-08-11 01:45:00 Best Taylor [facility] CONSENT/REFUSAL FOR DIAGNOSIS AND TREATMENT 2020-08-11 00:12:54 Doctor Unassigned, [employer] [facility] XR FOREARM 2 VW LEFT 2020-08-07 14:03:06 Unique Richards [facility] COVID-19 (ID NOW RAPID TESTING) 2020-08-07 13:35:00 Roberto Richards [facility] NOTICE OF PRIVACY PRACTICES 2020-08-07 13:13:25 Doctor Unassigned, [employer] [facility] CONSENT/REFUSAL FOR DIAGNOSIS AND TREATMENT 2020-08-07 13:11:06 Doctor Unassigned, [employer] [facility] CONSENT/REFUSAL FOR DIAGNOSIS AND TREATMENT 2020-08-07 13:10:57 Doctor Unassigned, [employer] [facility] TROPONIN I 2020-07-01 02:03:00 Abdias Robertson [facility] POCT TEST 2020-07-01 00:51:00 Abdias Robertsno [facility] URINALYSIS 2020-07-01 00:48:00 Abdias Robertson [facility] CBC WITH DIFF 2020-07-01 00:12:00 Abdias Robertson [facility] EXTRA TUBE LT. BLUE 2020-07-01 00:12:00 Abdias Robertson [facility] LIPASE 2020-07-01 00:09:00 Abdias Robertson [facility] TROPONIN I 2020-07-01 00:09:00 Abdias Robertson [facility] BASIC METABOLIC PANEL (NA, K, CL, CO2, GLUCOSE, BUN, CREATININE, CA) 2020-07-01 00:09:00 Abdias Robertson [facility] ADC,CLC OR LCC ONLY - INFLUENZA A & B DIRECT ANTIGEN 2020-07-01 00:09:00 Abdias Robertson [facility] N-TERMINAL PRO-BNP 2020-07-01 00:09:00 Abdias Robertson [facility] XR CHEST 1 VW 2020-07-01 00:07:07 Abdias Robertson [facility] NOTICE OF PRIVACY PRACTICES 2020-06-30 23:27:46 Doctor Unassigned, [employer] [facility] CT CERVICAL SPINE WO CONTRAST 2020-06-28 23:12:00 Narayan Narvaez [facility] CONSENT/REFUSAL FOR DIAGNOSIS AND TREATMENT 2020-06-28 21:52:44 Doctor Unassigned, [employer] [facility] POCT TEST 2020-06-13 01:50:00 Leeanne Wise [facility] XR CHEST 1 VW 2020-06-13 01:18:17 Leeanne Wise [facility] URINALYSIS 2020-06-13 00:34:00 Mehnaz Leeanne G [facility] COVID-19 (ID NOW RAPID TESTING) 2020-06-13 00:34:00 Leeanne Wise [facility] LIPASE 2020-06-13 00:33:00 Mehnaz [facility] TROPONIN I 2020-06-13 00:33:00 Mehnaz [facility] HEPATIC FUNCTION PANEL (54744) (ALB,T.PRO,BILI T,BU/BC,ALT,AST,ALK PHOS) 2020-06-13 00:33:00 [facility] (NA, K, CL, CO2, GLUCOSE, BUN, CREATININE, CA) 2020-06-13 00:33:00 [facility] CBC WITH DIFF 2020-06-13 00:33:00 Leeanne Wise [facility] D-DIMER 2020-06-13 00:33:00 Mehnaz [facility] CONSENT/REFUSAL FOR DIAGNOSIS AND TREATMENT 2020-06-12 23:27:48 Doctor Unassigned, [employer] [facility] COVID-19 (ID NOW RAPID TESTING) 2020-05-16 23:50:00 Bushra Rios [facility] LIPASE 2020-05-16 23:21:00 [facility] (03503) (ALB,T.PRO,BILI T,BU/BC,ALT,AST,ALK PHOS) 2020-05-16 23:21:00 Bushra Rios [facility] BASIC METABOLIC PANEL (NA, K, CL, CO2, GLUCOSE, BUN, CREATININE, CA) 2020-05-16 23:21:00 Bushra Rios [facility] CBC WITH DIFF 2020-05-16 23:21:00 Bushra Rios [facility] ACETAMINOPHEN 2020-05-15 07:42:00 Roberto Richards [facility] CT ABDOMEN PELVIS W CONTRAST 2020-05-15 06:56:53 Roberto Richards [facility] CT HEAD WO CONTRAST 2020-05-15 06:56:27 Alberta Richards [facility] POCT TEST 2020-05-15 05:53:00 Alberta Richards [facility] LIPASE 2020-05-15 05:52:00 Roberto Richards [facility] HEPATIC FUNCTION PANEL (55160) (ALB,T.PRO,BILI T,BU/BC,ALT,AST,ALK PHOS) 2020-05-15 05:52:00 Roberto Richards [facility] BASIC METABOLIC PANEL (NA, K, CL, CO2, GLUCOSE, BUN, CREATININE, CA) 2020-05-15 05:52:00 Roberto Richards [facility] ETHANOL 2020-05-15 05:52:00 Roberto Richards [facility] CBC WITH DIFF 2020-05-15 05:52:00 Roberto Richards [facility] PROTHROMBIN TIME / INR 2020-05-15 05:52:00 Jalen Richards [facility] ACTIVATED PARTIAL THRMPLAS MARCIO 2020-05-15 05:52:00 Roberto Richards [facility] URINALYSIS 2020-05-15 05:52:[address] [facility] ADC / LCC - DRUG SCREEN TRIAGE 2020-05-15 05:52:00 Roberto Richards [facility] NOTICE OF PRIVACY PRACTICES 2020-05-15 05:12:38 Doctor Unassigned, [employer] [facility] CONSENT/REFUSAL FOR DIAGNOSIS AND TREATMENT 2020-05-15 05:12:26 Doctor Unassigned, [employer] [facility] Encounters Start Date/Time End Date/Time Encounter Type Admission Type Attending [facility] Facility Care Department Encounter ID Source 2024-04-22 09:15:00 2024-04-22 09:15:00 Outpatient FARTUN GILLESPIE [id number] Kellee Bcukley 2024-02-06 11:00:00 2024-02-06 11:00:00 Outpatient GISELLE OSORIO [id number] Kellee Buckley 2024-01-14 09:30:00 2024-01-14 09:30:00 Outpatient HUNDL, JOANNE KELLEE DORMAN [id number] [facility] 2024-01-09 00:00:00 2024-01-09 00:00:00 Outpatient HUNDL, JOANNE KELLEE DORMAN [id number] [facility] 2024-01-06 00:00:00 2024-01-06 00:00:00 [facility]DL[id number] [facility]24-[facility] 00:00:00 2024-01-03 00:00:00 Outpatient HUNDL, JOANNE KELLEE DORMAN [id number] [facility] 2024-01-02 14:00:00 2024-01-02 14:00:00 Outpatient HUNDL, JOANNE KELLEE DORMAN [id number] Kellee [facility] 2023-12-13 09:30:00 2023-12-13 09:30:00 Outpatient HUNDL, JOANNE DORMAN [id number] [facility] 2023-12-09 00:00:00 2023-12-09 00:00:00 Outpatient HUNDL, JOANNE [facility] DORMAN [id number] [facility] 2023-12-05 00:00:00 2023-12-05 00:00:00 Outpatient HUNDL, JOANNE KELLEE DORMAN [id number] Kellee [facility] 2023-12-03 11:45:00 2023-12-03 11:45:00 Outpatient LABGerman KELLEE DORMAN [id number] [facility] 2023-12-03 11:00:00 2023-12-03 11:00:00 Outpatient HUNDL, JOANNE KELLEE DORMAN [id number] [facility] 2023-11-26 00:00:00 2023-11-26 00:00:00 Outpatient HUNDL, JOANNE DORMAN [id number] [facility] 2023-10-31 00:00:00 2023-10-31 00:00:00 Outpatient GIEFRAIN DORMAN [id number] Kellee Seybold 2023-10-31 00:00:00 2023-10-31 00:00:00 Outpatient GIEFRAIN DORMAN [id number] Kellee [facility] 2023-10-29 14:15:00 2023-10-29 14:15:00 Outpatient LAB90 KELLEE DORMAN [id number] Kellee [facility] 2023-10-29 13:30:00 2023-10-29 13:30:00 Outpatient JOANNE MONTES [id number] [facility] 2023-10-10 21:31:00 2023-10-11 00:43:00 Emergency X OLIVIA GARCIA [facility] ERT [id number] [facility] 2023-10-10 21:31:00 2023-10-11 00:43:00 Emergency Olivia Garcia [facility] [id number] 350.1.13.10 4.2.7.2.686 [id number] [facility] 2023-08-31 18:02:00 2023-08-31 22:40:00 Emergency ER SHERIDAN [facility] [id number] [facility] 2023-08-31 18:02:00 2023-08-31 22:40:00 emergency [facility] [id number] 2023-07-01 19:50:00 2023-07-01 22:59:00 Emergency X RICHARDSROBERTO [facility] ERT [id number] [facility] 2023-07-01 19:50:00 2023-07-01 22:59:00 Emergency Jalen Richardsnell [facility] ..840.114 350.1.13.10 4.2.7.2.686 [id number] [facility] 2023-06-04 23:37:00 2023-06-06 13:30:00 observatio n encounter [facility] [id number] [facility] [id number] 2023-06-04 23:37:00 2023-06-06 13:30:00 Inpatient ER SHAN BUSCH [facility] [id number] [facility] 2023-05-11 01:16:00 2023-05-13 17:04:00 observatio n clair [facility] [id number] [facility] [id number] 2023-05-11 01:16:00 2023-05-13 17:04:00 Inpatient ER RIDDHI MYLES [facility] [id number] [facility] 2023-05-10 21:48:00 2023-05-10 21:48:00 Emergency [facility] [id number] [facility] 2023-05-09 17:40:00 2023-05-09 20:30:00 Emergency X NARAYAN NARVAEZ [facility] ERT [id number] [facility] 2023-05-09 17:40:00 2023-05-09 20:30:00 Emergency Narayan Narvaez [facility] [id number] 350.1.13.10 4.2.7.2.686 [id number] [facility] 2023-05-05 21:31:00 2023-05-06 03:15:00 emergency [facility] [id number] 2023-05-05 21:31:00 2023-05-06 03:15:00 Emergency ER SHERIDAN [facility] [id number] [facility] 2023-04-30 17:18:00 2023-04-30 21:20:00 Emergency X NARAYAN NARVAEZ [facility] ERT [id number] [facility] 2023-04-30 17:18:00 2023-04-30 21:20:00 Emergency Narayan Navraez [facility] [id number] 350.1.13.10 4.2.7.2.686 [id number] [facility] 2023-04-16 20:40:00 2023-04-16 23:10:00 Emergency X ROBERTO RICHARDS [facility] ERT [id number] [facility] 2023-04-16 20:40:00 2023-04-16 23:10:00 Emergency Roberto Richards [facility] 1.2.840.114 350.1.13.10 4.2.7.2.686 [id number] [facility] 2023-04-08 17:28:00 2023-04-08 21:20:00 Emergency X Saleem EDWARD [facility] ERT [id number] [facility] 2023-04-08 17:28:00 2023-04-08 21:20:00 Emergency Saleem Edward Eleni [facility] 1.2.840.114 350.1.13.10 4.2.7.2.686 [id number] [facility] 2023-03-09 20:23:00 2023-03-10 00:20:00 Emergency X ROBERTO RICHARDS [facility] ERT [id number] [facility] 2023-03-09 20:23:00 2023-03-10 00:20:00 Emergency Roberto Richards [facility] 1.2.840.114 350.1.13.10 4.2.7.2.686 [id number] [facility] 2023-03-01 19:35:00 2023-03-02 01:35:00 Emergency X SUMAYARATNAELLEN OLIVIA [facility] ERT [id number] [facility] 2023-03-01 19:35:00 2023-03-02 01:35:00 Emergency Olivia Garcia [facility] 1.2.840.114 350.1.13.10 4.2.7.2.686 [id number] [facility] 2023-02-17 22:58:00 2023-02-18 02:22:00 Emergency X BRITTNI PADGETT [facility] ERT [id number] [facility] 2023-02-17 22:58:00 2023-02-18 02:22:00 Emergency Brittni Padgett [facility] 1.2.840.114 350.1.13.10 4.2.7.2.686 [id number] [facility] 2023-02-15 13:46:00 2023-02-17 16:14:00 Outpatient X JESÚS MONTERO [facility] ALTHEA [id number] [facility] 2023-02-15 13:46:00 2023-02-17 16:14:00 Emergency Leeanne Wise Kylah Jesús [facility] 1.2.840.114 350.1.13.10 4.2.7.2.686 [id number] [facility] 2022-01-17 10:48:00 2022-01-17 10:48:00 Outpatient CATHIE HOBSON [place] [place] [id number] [facility] 2022-01-09 16:47:00 2022-01-09 20:28:00 Emergency X MELIDA LONGORIA [facility] ERT [id number] [facility] 2022-01-09 16:47:00 2022-01-09 20:28:00 Emergency Melida Longoria [facility] 1.2.840.114 350.1.13.10 4.2.7.2.686 [id number] [facility] 2021-12-13 22:16:00 2021-12-14 02:28:00 Emergency X WIL MCQUEEN [facility] ERT [id number] [facility] 2021-12-13 22:16:00 2021-12-14 02:28:00 Emergency Wil Mcqueen [facility] 1.2.840.114 350.1.13.10 4.2.7.2.686 [id number] [facility] 2021-11-11 19:50:00 2021-11-11 23:17:00 Emergency X DEE WANG [facility] E[facility] [id number] [facility] 2021-11-11 19:50:00 2021-11-11 23:17:00 Emergency Dee Wang [facility] 1.2.840.114 350.1.13.10 4.2.7.2.686 [id number] [facility] 2021-11-11 00:00:00 2021-11-11 00:00:00 Orders Only Doctor Unassigned, [employer] [facility] 1.2.840.114 350.1.13.10 4.2.7.2.686 [id number] [facility] 2021-09-11 19:42:00 2021-09-11 23:02:00 Emergency X DEE WANG [facility] E[facility] [id number] [facility] 2021-09-11 19:42:00 2021-09-11 23:02:00 Emergency Dee Wang [facility] 1.2.840.114 350.1.13.10 4.2.7.2.686 [id number] [facility] 2021-08-14 23:38:00 2021-08-15 02:29:00 Emergency X OLIVIA GARCIA [facility] ERT [id number] [facility] 2021-08-14 23:38:00 2021-08-15 02:29:00 Emergency Olivia Garcia [facility] 1.2.840.114 350.1.13.10 4.2.7.2.686 [id number] [facility] 2021-05-27 23:23:00 2021-05-28 04:23:00 Emergency X CEM CHOI [facility] ERT [id number] [facility] 2021-05-27 23:23:00 2021-05-28 04:23:00 Emergency Cem Choi [facility] 1.2.840.114 350.1.13.10 4.2.7.2.686 [id number] [facility] 2021-04-10 00:00:00 2021-04-10 00:00:00 Transition of Care Shelley Rosas 1.2.840.114 350.1.13.10 4.2.7.2.686 [id number] [facility] 2021-04-07 16:30:00 2021-04-08 17:45:00 Hospital Encounter Maurice RobertoJesús [facility] 1.2.840.114 350.1.13.10 4.2.7.2.686 [id number] [facility] 2021-04-07 16:18:00 2021-04-07 16:18:00 Emergency X [facility] E[facility] [id number] [facility] 2021-01-12 03:01:00 2021-01-12 04:56:00 Emergency Narayan Narvaez [facility] 1.2.840.114 350.1.13.10 4.2.7.2.686 [id number] [id number] [facility] 2021-01-12 03:01:00 2021-01-12 03:01:00 Emergency X NARAYAN NARVAEZ [facility] ERT [id number] [facility] 2020-12-10 17:12:00 2020-12-10 21:14:00 Emergency Bal Hassan [facility] 1.2.840.114 350.1.13.10 4.2.7.2.686 [id number] 084 [id number] [facility] 2020-12-10 17:12:00 2020-12-10 17:12:00 Emergency X BAL HASSAN [facility] ERT [id number] [facility] 2020-12-04 14:50:00 2020-12-04 17:08:00 Emergency Tremaine Becerra [facility] 1.2.840.114 350.1.13.10 4.2.7.2.686 [id number] 084 [id number] [facility] 2020-12-04 14:50:00 2020-12-04 17:08:00 Emergency X TREMAINE BECERRA [facility] ERT [id number] [facility] 2020-11-03 20:44:00 2020-11-03 23:34:00 Emergency Leeanne Wise [facility] 1.2.840.114 350.1.13.10 4.2.7.2.686 [id number] [id number] [facility] 2020-11-03 20:44:00 2020-11-03 23:34:00 Emergency X LEEANNE WISE [facility] ERT [id number] [facility] 2020-09-19 12:32:00 2020-09-19 14:15:00 Emergency ER [facility] [id number] [facility] 2020-09-17 09:53:00 2020-09-17 11:55:00 [facility] 1.2.840.114 350.1.13.10 4.2.7.2.686 [id number] 084 [id number] 2020-09-17 09:53:00 2020-09-17 11:55:00 Emergency Leeanne Wise [facility] 1.2.840.114 350.1.13.10 4.2.7.2.686 [id number] 084 [id number] [facility] 2020-09-17 09:53:00 2020-09-17 11:55:00 Emergency X LEEANNE WISE [facility] ERT [id number] [facility] 2020-09-07 00:37:00 2020-09-07 01:41:00 Emergency Saleem Edward [facility] 1.2.840.114 350.1.13.10 4.2.7.2.686 [id number] 084 [id number] 2020-09-07 00:37:00 2020-09-07 01:41:00 Emergency Saleem Edward [facility] 1.2.840.114 350.1.13.10 4.2.7.2.686 [id number] 084 [id number] [facility] 2020-09-07 00:37:00 2020-09-07 01:41:00 Emergency X Saleem EDWARD [facility] ERT [id number] [facility] 2020-09-07 00:00:00 2020-09-07 00:00:00 Orders Only Doctor Unassigned, [employer] [facility] 1.2.840.114 350.1.13.10 4.2.7.2.686 [id number] 2020-09-07 00:00:00 2020-09-07 00:00:00 Orders Only Doctor Unassigned, [employer] [facility] 1.2.840.114 350.1.13.10 4.2.7.2.686 [id number] [id number] [facility] 2020-08-28 01:59:00 2020-08-28 04:40:00 Emergency Olivia Garcia [facility] 1.2.840.114 350.1.13.10 4.2.7.2.686 [id number] 084 [id number] 2020-08-28 01:59:00 2020-08-28 04:40:00 Emergency Olivia Garcia [facility] 1.2.840.114 350.1.13.10 4.2.7.2.686 [id number] 084 [id number] [facility] 2020-08-28 01:59:00 2020-08-28 01:59:00 Emergency X OLIVIA GARCIA [facility] ERT [id number] [facility] 2020-08-14 11:48:00 2020-08-14 13:42:00 Emergency Best [facility] 1.2.840.114 350.1.13.10 4.2.7.2.686 [id number] 084 [id number] 2020-08-14 11:48:00 2020-08-14 13:42:00 Emergency Best [facility] 1.2.840.114 350.1.13.10 4.2.7.2.686 [id number] 084 [id number] [facility] 2020-08-14 11:33:00 2020-08-14 11:33:00 Emergency X BEST TAYLOR [facility] ERT [id number] [facility] 2020-08-10 18:35:00 2020-08-11 00:05:00 [facility] 1.2.840.114 350.1.13.10 4.2.7.2.686 [id number] 084 [id number] 2020-08-10 18:35:00 2020-08-11 00:05:00 Emergency [facility] 1.2.840.114 350.1.13.10 4.2.7.2.686 [id number] 084 [id number] [facility] 2020-08-10 18:35:00 2020-08-11 00:05:00 Emergency X OLIVIA GARCIA [facility] ERT [id number] [facility] 2020-08-07 07:19:00 2020-08-07 09:02:00 [facility] 1.2.840.114 350.1.13.10 4.2.7.2.686 [id number] 084 [id number] 2020-08-07 07:19:00 2020-08-07 09:02:00 [facility] 1.2.840.114 350.1.13.10 4.2.7.2.686 [id number] 084 [id number] [facility] 2020-08-07 07:12:00 2020-08-07 07:12:00 Emergency X [facility] E[facility] [id number] [facility] 2020-08-07 00:00:00 2020-08-07 00:00:00 Orders Only Doctor Unassigned, [employer] [facility] 1.2.840.114 350.1.13.10 4.2.7.2.686 [id number] 2020-08-07 00:00:00 2020-08-07 00:00:00 Orders Only Doctor Unassigned, [employer] [facility] 1.2.840.114 350.1.13.10 4.2.7.2.686 [id number] [facility] 2020-07-01 00:00:00 2020-07-01 00:00:00 Letter (Out) Marbella Rizo [facility] 1.2.840.114 350.1.13.10 4.2.7.2.686 [id number] [id number] 2020-07-01 00:00:00 2020-07-01 00:00:00 Letter (Out) SallieMarbella [facility] 1.2.840.114 350.1.13.10 4.2.7.2.686 [id number] 019 [id number] [facility] 2020-06-30 17:46:00 2020-06-30 21:06:00 Emergency Abdias Robertson [facility] 1.2.840.114 350.1.13.10 4.2.7.2.686 [id number] 084 [id number] 2020-06-30 17:46:00 2020-06-30 21:06:00 Emergency [facility] 1.2.840.114 350.1.13.10 4.2.7.2.686 [id number] [id number] [facility] 2020-06-30 17:46:00 2020-06-30 21:06:00 Emergency X ABDIAS ROBERTSON [facility] ERT [id number] [facility] 2020-06-28 16:00:00 2020-06-28 18:08:00 [facility] 1.2.840.114 350.1.13.10 4.2.7.2.686 [id number] 084 [id number] 2020-06-28 16:00:00 2020-06-28 18:08:00 Emergency Narayan Narvaez [facility] 1.2.840.114 350.1.13.10 4.2.7.2.686 [id number] 084 [id number] [facility] 2020-06-28 16:00:00 2020-06-28 16:00:00 Emergency X NARAYAN NARVAEZ [facility] ERT [id number] [facility] 2020-06-14 00:00:00 2020-06-14 00:00:00 Telephone Kamryn Sheppard [facility] 1.2.840.114 350.1.13.10 4.2.7.2.686 [id number] 2020-06-14 00:00:00 2020-06-14 00:00:00 Telephone Silver Kamryn M [facility] 1.2.840.114 350.1.13.10 4.2.7.2.686 [id number] 019 [id number] [facility] 2020-06-12 17:40:00 2020-06-12 22:05:00 Emergency Leeanne Wise [facility] 1.2.840.114 350.1.13.10 4.2.7.2.686 [id number] 084 [id number] 2020-06-12 17:40:00 2020-06-12 22:05:00 Emergency Leeanne Wise [facility] 1.2.840.114 350.1.13.10 4.2.7.2.686 [id number] [id number] [facility] 2020-06-12 17:28:00 2020-06-12 17:28:00 Emergency X [facility] E[facility] [id number] [facility] 2020-05-16 17:10:00 2020-05-16 19:01:00 Emergency Bushra Rios [facility] 1.2.840.114 350.1.13.10 4.2.7.2.686 [id number] 084 [id number] 2020-05-16 17:10:00 2020-05-16 19:01:00 Emergency ChuckRosariora Colin [facility] 1.2.840.114 350.1.13.10 4.2.7.2.686 [id number] 084 [id number] [facility] 2020-05-16 17:10:00 2020-05-16 17:10:00 Emergency X ROSARIO RIOSRA [facility] ERT [id number] [facility] 2020-05-14 23:18:00 2020-05-15 02:54:00 Emergency Roberto Richards [facility] 1.2.840.114 350.1.13.10 4.2.7.2.686 [id number] 084 [id number] 2020-05-14 23:18:00 2020-05-15 02:54:00 Emergency Roberto Richards [facility] 1.2.840.114 350.1.13.10 4.2.7.2.686 [id number] 084 [id number] [facility] 2020-05-14 23:14:00 2020-05-14 23:14:00 Emergency X ROBERTO RICHARDS [facility] ERT [id number] [facility] 2009-07-18 05:35:00 2009-07-18 09:19:00 Emergency ER [facility] [id number] [facility] 2008-10-08 09:55:00 2008-10-08 14:19:00 Emergency ER [facility] [id number] [facility] 2008-03-26 15:21:00 2008-03-26 18:08:00 Emergency [facility] [id number] [facility] 2005-05-25 06:35:00 2005-05-25 06:35:00 Outpatient [facility] [id number] [facility] 2005-05-16 21:57:00 2005-05-16 23:40:00 Emergency ER [facility] [id number] [facility] 2005-04-24 18:49:00 2005-04-24 22:40:00 Emergency ER [facility] [id number] [facility] 2004-12-27 20:30:00 2004-12-28 01:40:00 Emergency ER SANIA [facility] [id number] [facility] 2003-12-07 22:40:00 2003-12-08 02:48:00 Emergency ER GINA [facility] [id number] [facility] 2003-12-06 13:57:00 2003-12-06 18:30:00 Emergency ER YIN RIOS [facility] [id number] [facility] 2003-08-31 19:43:00 2003-08-31 22:55:00 Emergency ER [facility] [id number] [facility] 2003-08-22 19:26:00 2003-08-22 22:10:00 Emergency ER [facility]ERTO [facility] [id number] [facility] 2002-01-30 22:41:00 2002-01-31 01:29:00 Emergency ER JENNIEANTHONY [facility] [id number] [facility] 2001-10-28 09:15:00 2001-10-28 11:25:00 Emergency ER [facility]ARCIE [facility] [id number] [facility] 2001-04-15 19:14:00 2001-04-15 23:10:00 Emergency ER ARLETTE [facility]ERT [facility] [id number] [facility] 2000-12-25 21:52:00 2000-12-26 00:15:00 Emergency ER GISELA [facility] [id number] [facility] 2000-12-23 18:51:00 2000-12-23 22:00:00 Emergency ER [facility] [id number] [facility] 1999-10-26 21:11:00 1999-10-27 00:20:00 Emergency ER [facility]W [facility] [id number] [facility] Results Test Description Test Time Test Comments Results Result Comments Source CT ABDOMEN PELVIS W CONTRAST 05:07:16 ORDERING PHYSICIAN:WAKILI ?YARIMA CLINICAL INFORMATION: ? Abdominal pain, fever LOWER [...] clear. There are nosuspicious focal osseous lesions. [facility] [id number] 04:38:58* Test Item Value Reference Range Interpretation Comme nts LIPASE (test code = 7254038449) 136 U/L 0-220 Lab Interpretation (test cod e = 08205-0) [facility] [id number] 04:19:14* Test Item Value Reference Range Interpretation [...] 32.2 g/dL 31.6-35.1 RDW-SD (test code = 44041-2) 50.2 fL 39.0-49.9 H RDW-CV (test code = 788-0) 17.3 % 12.0-15.5 H PLT (test code = 777-3) 377 166-358 H MPV (test code = 39093-6) 9.4 fL 9.5-12.9 L NRBC/100 WBC (test code = 5563187461) 0.0 0.0-10.0 NRBC x10^3 (test code = 6937802428) See_Comment [Automated messa ge] The system which generated this result transmitted reference range: 10*3/?L. The reference range was not used to interpret this result as normal/abnormal. GRAN MAT (NEUT) % (test code = 770-8) 65.3 % IMM GRAN % (test code = 6578661756) 0.40 % LYMPH % (test code = 736-9) 26.1 % MONO % (test code = 5905-5) 6.2 % EOS % (test code = 713-8) 1.6 % BASO % (test code = 706-2) 0.4 % GRAN MAT x10^3(ANC) (test code = 6198171987) 7.33 10*3/uL 1.88-7.09 H IMM GRAN x10^3 (test code = 9138358258) 0.04 10*3/uL 0.00-0.06 LYMPH x10^3 (test code = 731-0) 2.93 10*3/uL 1.32-3.29 MONO x10^3 (test code = 742-7) 0.70 10*3/uL 0.33-0.92 EOS x10^3 (test code = 711-2) 0.18 10*3/uL 0.03-0.39 BASO x10^3 (test code = 704-7) 0.05 10*3/uL 0.01-0.07 Lab Interpretation (test code = 36252-7) Abnormal [facility] [id number] 03:40:00* Test Item Value Reference Range Interpretation Comme nts POCT PREG (test code = 1605) Negative On board controls acceptable with C Line (test code = 3574) Yes POCT PREG LOT # (test code = 3575) [id number] POCT PREG TEST DATE ( test code = 3576) 2024-10-13 Lab Interpretation (test cod e = 63494-7) [facility] [id number] 04:35:04Ordering physician: ROBERTO RICHARDS INDICATION: Abdominal pain COMPARISON: CT of the abdomen and pelv is dated 03/09/2023 FINDINGS: Supine AP view of the abdomen and pelvis. There is no bowelobstruction or generalized constipation.[facility] [id number] 02:30:00* Test Item Value Reference Range Interpretation Comme nts POCT PREG (test code = 1605) Negative On board controls acceptable with C Line (test code = 3574) Yes POCT PREG LOT # (test code = 3575) [id number] POCT PREG TEST DATE ( test code = 3576) 2024-09-15 Lab Interpretation (test cod e = 11828-9) [facility] WITH [id number] 00:05:06* Test Item Value Reference Range Interpretation [...] 34.2 g/dL 31.6-35.1 RDW-SD (test code = 50463-7) 41.5 fL 39.0-49.9 RDW-CV (test code = 788-0) 14.5 % 12.0-15.5 PLT (test code = 777-3) 384 See_Comment H [Automated messa ge] The system which generated this result transmitted reference range: 166 - 358 10*3/?L. The reference range was not used to interpret this result as normal/abnormal. MPV (test code = 17166-4) 9.6 fL 9.5-12.9 GRAN MAT (NEUT) % (test code = 770-8) 66.0 % IMM GRAN % (test code = 6162861033) 0.50 % LYMPH % (test code = 736-9) 27.4 % MONO % (test code = 5905-5) 4.6 % EOS % (test code = 713-8) 1.1 % BASO % (test code = 706-2) 0.4 % GRAN MAT x10^3(ANC) (test code = 6574699877) 7.96 10*3/uL 1.88-7.09 H IMM GRAN x10^3 (test code = 4876736184) 0.06 10*3/uL 0.00-0.06 LYMPH x10^3 (test code = 731-0) 3.30 10*3/uL 1.32-3.29 H MONO x10^3 (test code = 742-7) 0.56 10*3/uL 0.33-0.92 EOS x10^3 (test code = 711-2) 0.13 10*3/uL 0.03-0.39 BASO x10^3 (test code = 704-7) 0.05 10*3/uL 0.01-0.07 Lab Interpretation (test code = 00318-2) Abnormal [facility]OLIC PANEL (62096)2023-05-09 23:27:13* Test Item Value Reference Range Interpretation Comme nts NA (test code = 9789539007) 137 mmol/L 135-145 K (test code = 0698805995) 3.3 mmol/L 3.5-5.0 L CL (test code = 4761783303) 103 mmol/L 98-108 CO2 TOTAL (test code = 6016369356) 20 mmol/L 23-31 L AGAP (test code = 3868599572) 14 2-16 BUN (test code = 9484058817) 5 mg/dL 7-23 L GLUCOSE (test code = 2937879490) 146 mg/dL 70-110 H CREATININE (test code = 8046557229) 0.60 mg/dL 0.50-1.04 TOTAL BILI (test code = 0035962776) 0.3 mg/dL 0.1-1.1 CALCIUM (test code = 1351544127) 9.3 mg/dL 8.6-10.6 T PROTEIN (test code = 8159799653) 7.9 g/dL 6.3-8.2 ALBUMIN (test code = 3966029183) 4.4 g/dL 3.5-5.0 ALK PHOS (test code = 4947724007) 105 U/L 34-122 ALTv (test code = 1742-6) 38 U/L 5-35 H AST(SGOT) (test code = 3046407342) 21 U/L 13-40 eGFR (test code = 12607-4) 113.7 mL/min/1.73m2 CKD-EPI eGFR (2020). Assuming creatinine has been stable day-to-day for at least three months, the eGFR indicates Category G1 (>= 90 mL/min/1.73 m2) Lab Interpretation (test code = 35945-7) Abnormal [facility]23-[facility] 23:27:13* Test Item Value Reference Range Interpretation Comme nts LIPASE (test code = 1889651311) 142 U/L 0-220 Lab Interpretation (test cod e = 70324-2) Normal [facility]OL[facility]EL (78471)2023-04-30 23:41:47* Test Item Value Reference Range Interpretation Comme nts NA (test code = 0182891720) 139 mmol/L 135-145 K (test code = 4940747938) 3.3 mmol/L 3.5-5.0 L CL (test code = 4490109765) 105 mmol/L 98-108 CO2 TOTAL (test code = 9497471144) 20 mmol/L 23-31 L AGAP (test code = 0951814526) 14 2-16 BUN (test code = 8488095795) 6 mg/dL 7-23 L GLUCOSE (test code = 2587140311) 119 mg/dL 70-110 H CREATININE (test code = 9283639204) 0.59 mg/dL 0.50-1.04 TOTAL BILI (test code = 4192748199) 0.3 mg/dL 0.1-1.1 CALCIUM (test code = 7207380760) 9.7 mg/dL 8.6-10.6 T PROTEIN (test code = 9210279552) 7.6 g/dL 6.3-8.2 ALBUMIN (test code = 3318696245) 4.2 g/dL 3.5-5.0 ALK PHOS (test code = 8005832899) 78 U/L 34-122 ALTv (test code = 1742-6) 24 U/L 5-35 AST(SGOT) (test code = 6763838214) 24 U/L 13-40 eGFR (test code = 4445154435) 110.7 mL/min/1.73m2 DARWIN (test code = DARWIN) [...] imaging tests). Lab Interpretation (test code = 03569-3) Abnormal [facility] WITH [id number] 23:29:07* Test Item Value Reference Range Interpretation Comme nts WBC (test code = 6690-2) 11.56 See_Comment H [Automated [employer] Accurence] The system which generated this result transmitted reference range: 4.30 - 11.10 10*3/?L. The reference range was not used to interpret this result as normal/abnormal. RBC (test code = 789-8) 5.02 See_Comment [Automated [employer] Accurence] The system which generated this result transmitted [...] 33.7 g/dL 31.6-35.1 RDW-SD (test code = 48382-4) 41.5 fL 39.0-49.9 RDW-CV (test code = 788-0) 14.3 % 12.0-15.5 PLT (test code = 777-3) 335 See_Comment [Automated [employer] ge] The system which generated this result transmitted reference range: 166 - 358 10*3/?L. The reference range was not used to interpret this result as normal/abnormal. MPV (test code = 75611-9) 9.7 fL 9.5-12.9 NRBC/100 WBC (test code = 1459015648) 0.0 See_Comment [Automated [employer] ssage] The system which generated this result transmitted reference range: 0.0 - 10.0 /100 WBCs. The reference range was not used to interpret this result as normal/abnormal. NRBC x10^3 (test code = 2447509958) See_Comment [Automated messa ge] The system which generated this result transmitted reference range: 10*3/?L. The reference range was not used to interpret this result as normal/abnormal. GRAN MAT (NEUT) % (test code = 770-8) 65.7 % IMM GRAN % (test code = 6244650387) 0.50 % LYMPH % (test code = 736-9) 25.4 % MONO % (test code = 5905-5) 6.7 % EOS % (test code = 713-8) 1.2 % BASO % (test code = 706-2) 0.5 % GRAN MAT x10^3(ANC) (test code = 2338394679) 7.59 10*3/uL 1.88-7.09 H IMM GRAN x10^3 (test code = 3193267366) 0.06 10*3/uL 0.00-0.06 LYMPH x10^3 (test code = 731-0) 2.94 10*3/uL 1.32-3.29 MONO x10^3 (test code = 742-7) 0.77 10*3/uL 0.33-0.92 EOS x10^3 (test code = 711-2) 0.14 10*3/uL 0.03-0.39 BASO x10^3 (test code = 704-7) 0.06 10*3/uL 0.01-0.07 Lab Interpretation (test code = 41035-7) Abnormal [facility] [id number] 22:59:00* Test Item Value Reference Range Interpretation Comme nts POCT PREG (test code = 1605) Negative On board controls acceptable with C Line (test code = 3574) Yes POCT PREG LOT # (test code = 3575) [id number] POCT PREG TEST DATE ( test code = 3576) 07/10/2024 Lab Interpretation (test cod e = 75948-7) Normal [facility] [id number] 02:36:34* Test Item Value Reference Range Interpretation Comme nts TROPONIN I (test code = 9539575387) 0.000 ng/mL <=0.034 DARWIN (test code = [...] of biotin. Lab Interpretation (test code = 05428-3) Normal [facility] LDM-[id number] 02:34:17* Test Item Value Reference Range Interpretation Comme [facility] NT-proBNP (test code = 58151-8) 40 pg/mL <=125 Lab Interpretation (test cod e = 77424-8) Normal [facility] SystemACTIVATED PARTIAL THRMPLAS [id number] 02:33:37* Test Item Value Reference Range Interpretation Comme [facility] APTT Patient (test code = 3173-2) 25 See_Comment [Automated message] The system which generated this result transmitted reference range: 23 - 38 Seconds. The reference range was not used to interpret this result as normal/abnormal. DARWIN (test code = DARWIN) The [facility] patient population mean normal value for aPTT is 30 seconds. Lab Interpretation (test code = 23473-8) Normal [facility] SystemPROTHROMBIN TIME / [id number] 02:31:36* Test Item Value Reference Range Interpretation Comme [facility] PROTIME PATIENT (test code = 5964-2) 12.6 [...] the indications. Lab Interpretation (test code = 85101-7) Normal [facility] MET[facility]OLIC PANEL (70740)2023-04-17 02:24:56* Test Item Value Reference Range Interpretation Comme [facility] NA (test code = 1261523005) 142 mmol/L 135-145 K (test code = 7746016910) 3.1 mmol/L 3.5-5.0 L CL (test code = 4785825473) 108 mmol/L 98-108 CO2 TOTAL (test code = 3614462516) 20 mmol/L 23-31 L AGAP (test code = 4356316511) 14 2-16 BUN (test code = 2833504722) 4 mg/dL 7-23 L GLUCOSE (test code = 4593277481) 107 mg/dL 70-110 CREATININE (test code = 9752083937) 0.61 mg/dL 0.50-1.04 TOTAL BILI (test code = 1989420584) 0.2 mg/dL 0.1-1.1 CALCIUM (test code = 1306437360) 9.1 mg/dL 8.6-10.6 T PROTEIN (test code = 2542219916) 7.0 g/dL 6.3-8.2 ALBUMIN (test code = 1959411832) 3.9 g/dL 3.5-5.0 ALK PHOS (test code = 8062083883) 69 U/L 34-122 ALTv (test code = 1742-6) 21 U/L 5-35 AST(SGOT) (test code = 3993757695) 21 U/L 13-40 eGFR (test code = 3071958692) 106.5 mL/min/1.73m2 DARWIN (test code = DARWIN) [...] imaging tests). Lab Interpretation (test code = 45776-6) [id number] Test Item Value Reference Range Interpretation Comme nts LIPASE (test code = 0066097737) 104 U/L 0-220 Lab Interpretation (test cod e = 85672-8) Normal [facility] WITH [id number] 02:13:31* Test Item Value Reference Range Interpretation Comme nts WBC (test code = 6690-2) 10.74 See_Comment [Automated [employer]] The system which generated this result transmitted reference range: 4.30 - 11.10 10*3/?L. The reference range was not used to interpret this result as normal/abnormal. RBC (test code = 789-8) 4.75 See_Comment [Automated [employer]] The system which generated this result transmitted [...] 34.5 g/dL 31.6-35.1 RDW-SD (test code = 95303-7) 39.1 fL 39.0-49.9 RDW-CV (test code = 788-0) 13.5 % 12.0-15.5 PLT (test code = 777-3) 324 See_Comment [Automated messa ge] The system which generated this result transmitted reference range: 166 - 358 10*3/?L. The reference range was not used to interpret this result as normal/abnormal. MPV (test code = 36191-4) 9.3 fL 9.5-12.9 L NRBC/100 WBC (test code = 5844916008) 0.0 See_Comment [Automated [employer] ssage] The system which generated this result transmitted reference range: 0.0 - 10.0 /100 WBCs. The reference range was not used to interpret this result as normal/abnormal. NRBC x10^3 (test code = 0990488178) See_Comment [Automated messa ge] The system which generated this result transmitted reference range: 10*3/?L. The reference range was not used to interpret this result as normal/abnormal. GRAN MAT (NEUT) % (test code = 770-8) 65.2 % IMM GRAN % (test code = 5331523052) 0.40 % LYMPH % (test code = 736-9) 26.5 % MONO % (test code = 5905-5) 5.8 % EOS % (test code = 713-8) 1.7 % BASO % (test code = 706-2) 0.4 % GRAN MAT x10^3(ANC) (test code = 5598947838) 7.01 10*3/uL 1.88-7.09 IMM GRAN x10^3 (test code = 8133761092) 0.04 10*3/uL 0.00-0.06 LYMPH x10^3 (test code = 731-0) 2.85 10*3/uL 1.32-3.29 MONO x10^3 (test code = 742-7) 0.62 10*3/uL 0.33-0.92 EOS x10^3 (test code = 711-2) 0.18 10*3/uL 0.03-0.39 BASO x10^3 (test code = 704-7) 0.04 10*3/uL 0.01-0.07 Lab Interpretation (test code = 07400-6) Abnormal [facility] [id number] 02:11:00* Test Item Value Reference Range Interpretation Comme nts POCT PREG (test code = 1605) Negative On board controls acceptable with C Line (test code = 3574) Yes POCT PREG LOT # (test code = 3575) [id number] POCT PREG TEST DATE ( test code = 3576) 2024-09-04 Lab Interpretation (test cod e = 96243-9) [facility] [id number] 23:59:14* Test Item Value Reference Range Interpretation Comme nts TROPONIN I (test code = 6128406459) 0.000 ng/mL <=0.034 DARWIN (test code = [...] of biotin. Lab Interpretation (test code = 75431-9) Normal [facility]. METABOLIC PANEL (00226)2023-04-08 23:47:52* Test Item Value Reference Range Interpretation Comme nts NA (test code = 1972081180) 138 mmol/L 135-145 K (test code = 3908449061) 3.4 mmol/L 3.5-5.0 L CL (test code = 8239326606) 103 mmol/L 98-108 CO2 TOTAL (test code = 8188640196) 22 mmol/L 23-31 L AGAP (test code = 8415347979) 13 2-16 BUN (test code = 2043533411) 6 mg/dL 7-23 L GLUCOSE (test code = 2350625661) 106 mg/dL 70-110 CREATININE (test code = 3285837324) 0.91 mg/dL 0.50-1.04 TOTAL BILI (test code = 6897313977) 0.2 mg/dL 0.1-1.1 CALCIUM (test code = 9796261050) 8.7 mg/dL 8.6-10.6 T PROTEIN (test code = 7299239751) 7.4 g/dL 6.3-8.2 ALBUMIN (test code = 7773607792) 4.1 g/dL 3.5-5.0 ALK PHOS (test code = 0739839083) 71 U/L 34-122 ALTv (test code = 1742-6) 28 U/L 5-35 AST(SGOT) (test code = 6602400853) 28 U/L 13-40 eGFR (test code = 0060725677) 67.2 mL/min/1.73m2 DARWIN (test code = DARWIN) [...] imaging tests). Lab Interpretation (test code = 74098-3) [facility]* Test Item Value Reference Range Interpretation Comme nts MAGNESIUM (test code = 6218140985) 2.0 mg/dL 1.7-2.4 Lab Interpretation (test cod e = 88356-9) [facility] 23:47:52* Test Item Value Reference Range Interpretation Comme nts LIPASE (test code = 3669986437) 74 U/L 0-220 Lab Interpretation (test cod e = 61324-3) [facility] [id number] 23:36:30* Test Item Value Reference Range Interpretation Comme nts WBC (test code = 6690-2) 9.95 See_Comment [Automated messa ge] The system which [...] 34.5 g/dL 31.6-35.1 RDW-SD (test code = 81128-4) 39.3 fL 39.0-49.9 RDW-CV (test code = 788-0) 13.6 % 12.0-15.5 PLT (test code = 777-3) 305 See_Comment [Automated [employer] ge] The system which generated this result transmitted reference range: 166 - 358 10*3/?L. The reference range was not used to interpret this result as normal/abnormal. MPV (test code = 44648-3) 9.6 fL 9.5-12.9 NRBC/100 WBC (test code = 7216442501) 0.0 See_Comment [Automated me ssage] The system which generated this result transmitted reference range: 0.0 - 10.0 /100 WBCs. The reference range was not used to interpret this result as normal/abnormal. NRBC x10^3 (test code = 5048398643) See_Comment [Automated messa ge] The system which generated this result transmitted reference range: 10*3/?L. The reference range was not used to interpret this result as normal/abnormal. GRAN MAT (NEUT) % (test code = 770-8) 66.5 % IMM GRAN % (test code = 5042692847) 0.30 % LYMPH % (test code = 736-9) 25.3 % MONO % (test code = 5905-5) 5.2 % EOS % (test code = 713-8) 2.3 % BASO % (test code = 706-2) 0.4 % GRAN MAT x10^3(ANC) (test code = 3991863003) 6.61 10*3/uL 1.88-7.09 IMM GRAN x10^3 (test code = 5705240966) 0.03 10*3/uL 0.00-0.06 LYMPH x10^3 (test code = 731-0) 2.52 10*3/uL 1.32-3.29 MONO x10^3 (test code = 742-7) 0.52 10*3/uL 0.33-0.92 EOS x10^3 (test code = 711-2) 0.23 10*3/uL 0.03-0.39 BASO x10^3 (test code = 704-7) 0.04 10*3/uL 0.01-0.07 Lab Interpretation (test code = 52443-6) [facility] [id number] 02:51:00* Test Item Value Reference Range Interpretation Comme nts POCT PREG (test code = 1605) Negative On board controls acceptable with C Line (test code = 3574) Yes POCT PREG LOT # (test code = 3575) [id number] POCT PREG TEST DATE ( test code = 3576) 07/10/2024 Lab Interpretation (test cod e = 81709-2) [facility] [id number] 03:26:00* Test Item Value Reference Range Interpretation Comme nts POCT PREG (test code = 1605) Negative On board controls acceptable with C Line (test code = 3574) Yes POCT PREG LOT # (test code = 3575) [id number] POCT PREG TEST DATE ( test code = 3576) Lab Interpretation (test cod e = 77087-2) [facility]23-[facility] 22:35:38* Test Item Value Reference Range Interpretation Comme nts LIPASE (test code = 7865694652) 2049 U/L 0-220 H Lab Interpretation (test cod e = 15111-9) [facility] [id number] 22:30:10* Test Item Value Reference Range Interpretation [...] 34.6 g/dL 31.6-35.1 RDW-SD (test code = 41802-3) 42.7 fL 39.0-49.9 RDW-CV (test code = 788-0) 14.6 % 12.0-15.5 PLT (test code = 777-3) 331 See_Comment [Automated messa ge] The system which generated this result transmitted reference range: 166 - 358 10*3/?L. The reference range was not used to interpret this result as normal/abnormal. MPV (test code = 79669-2) 9.7 fL 9.5-12.9 NRBC/100 WBC (test code = 9227843658) 0.0 See_Comment [Automated me ssage] The system which generated this result transmitted reference range: 0.0 - 10.0 /100 WBCs. The reference range was not used to interpret this result as normal/abnormal. NRBC x10^3 (test code = 1533698115) See_Comment [Automated messa ge] The system which generated this result transmitted reference range: 10*3/?L. The reference range was not used to interpret this result as normal/abnormal. GRAN MAT (NEUT) % (test code = 770-8) 65.7 % IMM GRAN % (test code = 5446947683) 0.50 % LYMPH % (test code = 736-9) 26.5 % MONO % (test code = 5905-5) 5.4 % EOS % (test code = 713-8) 1.5 % BASO % (test code = 706-2) 0.4 % GRAN MAT x10^3(ANC) (test code = 7519201730) 8.05 10*3/uL 1.88-7.09 H IMM GRAN x10^3 (test code = 6606233221) 0.06 10*3/uL 0.00-0.06 LYMPH x10^3 (test code = 731-0) 3.24 10*3/uL 1.32-3.29 MONO x10^3 (test code = 742-7) 0.66 10*3/uL 0.33-0.92 EOS x10^3 (test code = 711-2) 0.18 10*3/uL 0.03-0.39 BASO x10^3 (test code = 704-7) 0.05 10*3/uL 0.01-0.07 Lab Interpretation (test code = 34218-5) Abnormal [facility]. METABOLIC PANEL (58474)2023-02-15 22:27:47* Test Item Value Reference Range Interpretation Comme nts NA (test code = 8975024444) 138 mmol/L 135-145 K (test code = 3280496674) 3.7 mmol/L 3.5-5.0 CL (test code = 4459268985) 105 mmol/L 98-108 CO2 TOTAL (test code = 6146936781) 23 mmol/L 23-31 AGAP (test code = 8195072561) 10 2-16 BUN (test code = 3967326402) 6 mg/dL 7-23 L GLUCOSE (test code = 9627238105) 92 mg/dL 70-110 CREATININE (test code = 1842930024) 0.77 mg/dL 0.50-1.04 TOTAL BILI (test code = 0224257468) 0.7 mg/dL 0.1-1.1 CALCIUM (test code = 0997049675) 9.0 mg/dL 8.6-10.6 T PROTEIN (test code = 0225472724) 7.5 g/dL 6.3-8.2 ALBUMIN (test code = 3939552185) 4.0 g/dL 3.5-5.0 ALK PHOS (test code = 1430289371) 101 U/L 34-122 ALTv (test code = 1742-6) 25 U/L 5-35 AST(SGOT) (test code = 0945876835) 36 U/L 13-40 eGFR (test code = 2444505153) 81.8 mL/min/1.73m2 DARWIN (test code = DARWIN) [...] imaging tests). Lab Interpretation (test code = 19950-4) [facility]PBBXO5240-80-99 20:56:28* Test Item Value Reference Range Interpretation Comments D-DIMER (test code = 2046697338) 0.44 See_Comment H [Automated message] The system [...] a diagnosis. Lab Interpretation (test code = 54322-1) [facility] [id number] 01:15:16* Test Item Value Reference Range Interpretation Comments TROPONIN I (test code = 0427739433) 0.001 ng/mL See_Comment [Automated message] The system [...] of biotin. Lab Interpretation (test code = 15313-9) [facility] [id number] 22:52:31* Test Item Value Reference Range Interpretation Comments TROPONIN I (test code = 5842564978) 0.001 ng/mL See_Comment [Automated message] The system [...] of biotin. Lab Interpretation (test code = 70541-3) Normal [facility] [id number]-[id number] 22:49:33* Test Item Value Reference Range Interpretation Comme nts NT-proBNP (test code = 8108662350) 145 pg/mL See_Comment H [Automated message] The system which generated this result transmitted reference range: <=125. The reference range was not used to interpret this result as normal/abnormal. DARWIN (test code = DARWIN) Biotin has been reported to cause a negative bias, interpret results relative to patient's use of biotin. Lab Interpretation (test code = 85087-7) Abnormal [facility] METABOLIC PANEL (NA, K, CL, CO2, GLUCOSE, BUN, CREATININE, CA)2022-01-09 22:40:32* Test Item Value Reference Range Interpretation Comme nts NA (test code = 9467834181) 142 mmol/L 135-145 K (test code = 9890734729) 3.3 mmol/L 3.5-5.0 L CL (test code = 3777213071) 109 mmol/L 98-108 H CO2 TOTAL (test code = 4026354074) 22 mmol/L 23-31 L AGAP (test code = 0801498180) 2-16 BUN (test code = 4020756238) 9 mg/dL 7-23 GLUCOSE (test code = 1012576545) 116 mg/dL 70-110 H CREATININE (test code = 1041518711) 0.69 mg/dL 0.50-1.04 CALCIUM (test code = 5534901275) 9.2 mg/dL 8.6-10.6 eGFR (test code = 7785672660) mL/min/1.73m2 DARWIN (test code = DARWIN) Association [...] imaging tests). Lab Interpretation (test code = 69266-6) Abnormal [facility] WITH [id number] 22:29:09* Test Item Value Reference Range Interpretation Comme nts WBC (test code = 6690-2) See_Comment [Automated [employer]] The system which generated this result transmitted reference range: 4.30 - 11.10 10*3/?L. The reference range was not used to interpret this result as normal/abnormal. RBC (test code = 789-8) See_Comment [Automated [employer]] The system which generated this result [...] 34.4 g/dL 31.6-35.1 RDW-SD (test code = 30200-8) 40.7 fL 39.0-49.9 RDW-CV (test code = 788-0) 14.1 % 12.0-15.5 PLT (test code = 777-3) See_Comment [Automated [employer]] The system which generated this result transmitted reference range: 166 - 358 10*3/?L. The reference range was not used to interpret this result as normal/abnormal. MPV (test code = 75406-8) 9.6 fL 9.5-12.9 NRBC/100 WBC (test code = 6316128260) See_Comment [Automated [employer] ssage] The system which generated this result transmitted reference range: 0.0 - 10.0 /100 WBCs. The reference range was not used to interpret this result as normal/abnormal. NRBC x10^3 (test code = 2725175961) <0.01 See_Comment [Automated messa ge] The system which generated this result transmitted reference range: 10*3/?L. The reference range was not used to interpret this result as normal/abnormal. GRAN MAT (NEUT) % (test code = 770-8) 54.7 % IMM GRAN % (test code = 4640541335) 0.40 % LYMPH % (test code = 736-9) 33.8 % MONO % (test code = 5905-5) 7.1 % EOS % (test code = 713-8) 3.3 % BASO % (test code = 706-2) 0.7 % GRAN MAT x10^3(ANC) (test code = 3434685124) 4.87 10*3/uL 1.88-7.09 IMM GRAN x10^3 (test code = 6867159608) 0.04 10*3/uL 0.00-0.06 LYMPH x10^3 (test code = 731-0) 3.01 10*3/uL 1.32-3.29 MONO x10^3 (test code = 742-7) 0.63 10*3/uL 0.33-0.92 EOS x10^3 (test code = 711-2) 0.29 10*3/uL 0.03-0.39 BASO x10^3 (test code = 704-7) 0.06 10*3/uL 0.01-0.07 Lab Interpretation (test code = 50221-8) Abnormal [facility] [id number] 06:45:45* Test Item Value Reference Range Interpretation Comments TROPONIN I (test code = 6049555452) 0.000 ng/mL See_Comment [Automated message] The system [...] of biotin. Lab Interpretation (test code = 59535-3) [facility] [id number] 05:00:55 * Test Item Value Reference Range Interpretation Comme nts TSH (test code = 7818399556) See_Comment [Automated [employer]rence] The system which generated this result transmitted reference range: 0.45 - 4.70 mIU/L. The reference range was not used to interpret this result as normal/abnormal. Lab Interpretation (test code = 16098-6) Normal [facility] [id number] 04:47:50* Test Item Value Reference Range Interpretation Comme nts FREE T4 (test code = 7314059625) See_Comment [Automated [employer]] The system which generated this result transmitted reference range: 0.78 - 2.20 ng/dL:. The reference range was not used to interpret this result as normal/abnormal. Lab Interpretation (test code = 01665-2) Normal [facility] [id number] 04:47:10* Test Item Value Reference Range Interpretation Comme nts FREE T3 (test code = 4186422441) 4.37 pg/mL 2.77-5.27 Lab Interpretation (test cod e = 53526-3) [facility] [id number] 04:42:07* Test Item Value Reference Range Interpretation Comments TROPONIN I (test code = 0714621814) 0.001 ng/mL See_Comment [Automated message] The system [...] of biotin. Lab Interpretation (test code = 68355-9) Normal [facility]. METABOLIC PANEL (02964)2021-12-14 04:30:28* Test Item Value Reference Range Interpretation Comme nts NA (test code = 6931034826) 141 mmol/L 135-145 K (test code = 9364680247) 3.6 mmol/L 3.5-5.0 CL (test code = 5850095320) 111 mmol/L 98-108 H CO2 TOTAL (test code = 7782457661) 19 mmol/L 23-31 L AGAP (test code = 0855349073) 2-16 BUN (test code = 5802003364) 15 mg/dL 7-23 GLUCOSE (test code = 1558398580) 113 mg/dL 70-110 H CREATININE (test code = 8114491976) 1.05 mg/dL 0.50-1.04 H TOTAL BILI (test code = 4605919610) 0.2 mg/dL 0.1-1.1 CALCIUM (test code = 4335532444) 9.8 mg/dL 8.6-10.6 T PROTEIN (test code = 8269371953) 6.8 g/dL 6.3-8.2 ALBUMIN (test code = 2193833304) 4.2 g/dL 3.5-5.0 ALK PHOS (test code = 6487910270) 73 U/L 34-122 ALTv (test code = 1742-6) 16 U/L 5-35 AST(SGOT) (test code = 0578447426) 19 U/L 13-40 eGFR (test code = 4069544082) mL/min/1.73m2 DARWIN (test code = DARWIN) Association [...] imaging tests). Lab Interpretation (test code = 24934-3) [facility] 04:29:48* Test Item Value Reference Range Interpretation Comme nts LIPASE (test code = 0525171144) 225 U/L 0-220 H Lab Interpretation (test cod e = 31758-2) [facility] [id number] 04:20:00* Test Item Value Reference Range Interpretation Comme nts POCT PREG (test code = 1605) negative On board controls acceptable with C Line (test code = 3574) present POCT PREG LOT # (test code = 3575) [id number] POCT PREG TEST DATE ( test code = 3576) 2023-05-07 Lab Interpretation (test cod e = 92439-6) Normal [facility] WITH [id number] 04:01:25* Test Item Value Reference Range Interpretation Comme nts WBC (test code = 6690-2) See_Comment [Automated [employer]] The system which generated this result transmitted reference range: 4.30 - 11.10 10*3/?L. The reference range was not used to interpret this result as normal/abnormal. RBC (test code = 789-8) See_Comment H [Automated [employer]] The system which generated this result [...] 34.3 g/dL 31.6-35.1 RDW-SD (test code = 71776-5) 39.5 fL 39.0-49.9 RDW-CV (test code = 788-0) 13.6 % 12.0-15.5 PLT (test code = 777-3) See_Comment [Automated [employer]] The system which generated this result transmitted reference range: 166 - 358 10*3/?L. The reference range was not used to interpret this result as normal/abnormal. MPV (test code = 20287-0) 9.9 fL 9.5-12.9 NRBC/100 WBC (test code = 6481309443) See_Comment [Automated [employer] ssage] The system which generated this result transmitted reference range: 0.0 - 10.0 /100 WBCs. The reference range was not used to interpret this result as normal/abnormal. NRBC x10^3 (test code = 6384930777) <0.01 See_Comment [Automated [employer]] The system which generated this result transmitted reference range: 10*3/?L. The reference range was not used to interpret this result as normal/abnormal. GRAN MAT (NEUT) % (test code = 770-8) 51.5 % IMM GRAN % (test code = 0284265994) 0.50 % LYMPH % (test code = 736-9) 35.8 % MONO % (test code = 5905-5) 9.4 % EOS % (test code = 713-8) 2.2 % BASO % (test code = 706-2) 0.6 % GRAN MAT x10^3(ANC) (test code = 1313596095) 5.37 10*3/uL 1.88-7.09 IMM GRAN x10^3 (test code = 0093494904) 0.05 10*3/uL 0.00-0.06 LYMPH x10^3 (test code = 731-0) 3.73 10*3/uL 1.32-3.29 H MONO x10^3 (test code = 742-7) 0.98 10*3/uL 0.33-0.92 H EOS x10^3 (test code = 711-2) 0.23 10*3/uL 0.03-0.39 BASO x10^3 (test code = 704-7) 0.06 10*3/uL 0.01-0.07 Lab Interpretation (test code = 77412-3) [facility] [id number] 04:04:13* Test Item Value Reference Range Interpretation Comments TROPONIN I (test code = 5312924821) 0.001 ng/mL See_Comment [Automated message] The system [...] of biotin. Lab Interpretation (test code = 83204-5) [facility] [id number] 02:56:00* Test Item Value Reference Range Interpretation Comme nts POCT PREG (test code = 1605) negative On board controls acceptable with C Line (test code = 3574) present POCT PREG LOT # (test code = 3575) [id number] POCT PREG TEST DATE ( test code = 3576) 2023-04-06 Lab Interpretation (test cod e = 60895-6) [facility] [id number] 02:15:30* Test Item Value Reference Range Interpretation Comments TROPONIN I (test code = 3392713284) 0.000 ng/mL See_Comment [Automated message] The system [...] of biotin. Lab Interpretation (test code = 69831-7) [facility] [id number] 02:12:14* Test Item Value Reference Range Interpretation Comme nts NT-proBNP (test code = 6618768422) 109 pg/mL See_Comment [Automated message] The system which generated this result transmitted reference range: <=125. The reference range was not used to interpret this result as normal/abnormal. DARWIN (test code = DARWIN) Biotin has been reported to cause a negative bias, interpret results relative to patient's use of biotin. Lab Interpretation (test code = 05060-5) [facility] METABOLIC PANEL (81137)2021-11-12 02:04:12* Test Item Value Reference Range Interpretation Comme nts NA (test code = 9716214143) 140 mmol/L 135-145 K (test code = 4008334380) 4.0 mmol/L 3.5-5.0 CL (test code = 3718028261) 111 mmol/L 98-108 H CO2 TOTAL (test code = 5326326950) 17 mmol/L 23-31 L AGAP (test code = 0712406912) 2-16 BUN (test code = 9004445208) 9 mg/dL 7-23 GLUCOSE (test code = 8562345056) 105 mg/dL 70-110 CREATININE (test code = 3158151498) 0.72 mg/dL 0.50-1.04 TOTAL BILI (test code = 4613922504) 0.4 mg/dL 0.1-1.1 CALCIUM (test code = 6926078223) 9.3 mg/dL 8.6-10.6 T PROTEIN (test code = 5754778820) 6.6 g/dL 6.3-8.2 ALBUMIN (test code = 2658781427) 4.0 g/dL 3.5-5.0 ALK PHOS (test code = 8349009679) 70 U/L 34-122 ALTv (test code = 1742-6) 19 U/L 5-35 AST(SGOT) (test code = 8812984559) 21 U/L 13-40 eGFR (test code = 4903822997) mL/min/1.73m2 DARWIN (test code = DARWIN) Association [...] imaging tests). Lab Interpretation (test code = 84954-2) [facility] 02:03:32* Test Item Value Reference Range Interpretation Comme nts LIPASE (test code = 8856397966) 173 U/L 0-220 Lab Interpretation (test cod e = 77159-0) [facility] WITH [id number] 01:43:53* Test Item Value Reference Range Interpretation Comme nts WBC (test code = 6690-2) See_Comment [Automated [employer]] The system which generated this result transmitted reference range: 4.30 - 11.10 10*3/?L. The reference range was not used to interpret this result as normal/abnormal. RBC (test code = 789-8) See_Comment [Automated [employer]] The system which generated this result transmitted [...] 33.7 g/dL 31.6-35.1 RDW-SD (test code = 42073-3) 41.3 fL 39.0-49.9 RDW-CV (test code = 788-0) 14.3 % 12.0-15.5 PLT (test code = 777-3) See_Comment [Automated [employer]] The system which generated this result transmitted reference range: 166 - 358 10*3/?L. The reference range was not used to interpret this result as normal/abnormal. MPV (test code = 75142-8) 9.7 fL 9.5-12.9 NRBC/100 WBC (test code = 9062187530) See_Comment [Automated me ssage] The system which generated this result transmitted reference range: 0.0 - 10.0 /100 WBCs. The reference range was not used to interpret this result as normal/abnormal. NRBC x10^3 (test code = 0610710941) <0.01 See_Comment [Automated messa ge] The system which generated this result transmitted reference range: 10*3/?L. The reference range was not used to interpret this result as normal/abnormal. GRAN MAT (NEUT) % (test code = 770-8) 62.6 % IMM GRAN % (test code = 7537074748) 0.50 % LYMPH % (test code = 736-9) 27.0 % MONO % (test code = 5905-5) 6.5 % EOS % (test code = 713-8) 2.9 % BASO % (test code = 706-2) 0.5 % GRAN MAT x10^3(ANC) (test code = 2401555749) 6.30 10*3/uL 1.88-7.09 IMM GRAN x10^3 (test code = 3539745849) 0.05 10*3/uL 0.00-0.06 LYMPH x10^3 (test code = 731-0) 2.71 10*3/uL 1.32-3.29 MONO x10^3 (test code = 742-7) 0.65 10*3/uL 0.33-0.92 EOS x10^3 (test code = 711-2) 0.29 10*3/uL 0.03-0.39 BASO x10^3 (test code = 704-7) 0.05 10*3/uL 0.01-0.07 Lab Interpretation (test code = 44262-7) [facility] [id number] 02:21:00* Test Item Value Reference Range Interpretation Comme [facility] POCT PREG (test code = 1605) Negative On board controls acceptable with C Line (test code = 3574) Present Lab Interpretation (test cod e = 13508-7) [facility] System[facility] Metabolic Conoh6243-35-41 02:05:50* Test Item Value Reference Range Interpretation Comme nts NA (test code = 4781238806) 137 mmol/L 135-145 K (test code = 6858203664) 3.9 mmol/L 3.5-5.0 CL (test code = 9215760764) 109 mmol/L 98-108 H CO2 TOTAL (test code = 7549973456) 19 mmol/L 23-31 L AGAP (test code = 6082266733) 2-16 BUN (test code = 4865318888) 10 mg/dL 7-23 GLUCOSE (test code = 0812016965) 101 mg/dL 70-110 CREATININE (test code = 6182244607) 0.80 mg/dL 0.50-1.04 TOTAL BILI (test code = 1635798696) 0.3 mg/dL 0.1-1.1 CALCIUM (test code = 4947431343) 8.8 mg/dL 8.6-10.6 T PROTEIN (test code = 3637239255) 6.6 g/dL 6.3-8.2 ALBUMIN (test code = 3584607631) 4.0 g/dL 3.5-5.0 ALK PHOS (test code = 3012525658) 71 U/L 34-122 ALTv (test code = 1742-6) 18 U/L 5-35 AST(SGOT) (test code = 4591220873) 20 U/L 13-40 eGFR (test code = 7613843517) mL/min/1.73m2 DARWIN (test code = DARWIN) Association [...] imaging tests). Lab Interpretation (test code = 20427-1) [facility]normal [facility] System[facility], Wispo5590-95-30 02:05:25* Test Item Value Reference Range Interpretation Comme nts LIPASE (test code = 1285773021) 96 U/L 0-220 Lab Interpretation (test cod e = 65858-5) [facility] with Tnpkfjnbehte0945-67-57 01:53:06* Test Item Value Reference Range Interpretation Comme nts WBC (test code = 6690-2) See_Comment H [Automated [employer]] The system which generated this result transmitted reference range: 4.30 - 11.10 10*3/?L. The reference range was not used to interpret this result as normal/abnormal. RBC (test code = 789-8) See_Comment H [Automated [employer]rence] The system which generated this result transmitted [...] 34.3 g/dL 31.6-35.1 RDW-SD (test code = 67410-8) 40.5 fL 39.0-49.9 RDW-CV (test code = 788-0) 14.4 % 12.0-15.5 PLT (test code = 777-3) See_Comment [Automated messa ge] The system which generated this result transmitted reference range: 166 - 358 10*3/?L. The reference range was not used to interpret this result as normal/abnormal. MPV (test code = 75049-4) 9.4 fL 9.5-12.9 L NRBC/100 WBC (test code = 4966201529) See_Comment [Automated [employer] ssage] The system which generated this result transmitted reference range: 0.0 - 10.0 /100 WBCs. The reference range was not used to interpret this result as normal/abnormal. NRBC x10^3 (test code = 1879607823) <0.01 See_Comment [Automated messa ge] The system which generated this result transmitted reference range: 10*3/?L. The reference range was not used to interpret this result as normal/abnormal. GRAN MAT (NEUT) % (test code = 770-8) 59.8 % IMM GRAN % (test code = 1618358601) 0.40 % LYMPH % (test code = 736-9) 31.0 % MONO % (test code = 5905-5) 6.3 % EOS % (test code = 713-8) 2.0 % BASO % (test code = 706-2) 0.5 % GRAN MAT x10^3(ANC) (test code = 4248749001) 6.73 10*3/uL 1.88-7.09 IMM GRAN x10^3 (test code = 5427430977) 0.05 10*3/uL 0.00-0.06 LYMPH x10^3 (test code = 731-0) 3.50 10*3/uL 1.32-3.29 H MONO x10^3 (test code = 742-7) 0.71 10*3/uL 0.33-0.92 EOS x10^3 (test code = 711-2) 0.23 10*3/uL 0.03-0.39 BASO x10^3 (test code = 704-7) 0.06 10*3/uL 0.01-0.07 Lab Interpretation (test code = 87339-2) Abnormal [facility] [id number] 01:45:00* Test Item Value Reference Range Interpretation Comme nts POCT PREG (test code = 1605) negatibe On board controls acceptable with C Line (test code = 3574) present POCT PREG LOT # (test code = 3575) [id number] POCT PREG TEST DATE ( test code = 3576) 09/04/2022 Lab Interpretation (test cod e = 66187-9) [id number] 06:35:00* Test Item Value Reference Range Interpretation Comme nts POCT PREG (test code = 1605) negative On board controls acceptable with C Line (test code = 3574) present POCT PREG LOT # (test code = 3575) [id number] POCT PREG TEST DATE ( test code = 3576) Lab Interpretation (test cod e = 48110-1) [facility] [id number] 09:09:55* Test Item Value Reference Range Interpretation Comments TROPONIN I (test code = 5737370387) 0.001 ng/mL See_Comment [Automated message] The system [...] of biotin. Lab Interpretation (test code = 10570-0) [facility]BNCQU9029-30-96 07:23:51* Test Item Value Reference Range Interpretation Comments D-DIMER (test code = 7202203313) See_Comment [Automated message] The system which generated [...] a diagnosis. Lab Interpretation (test code = 12691-2) [facility]2021-[facility] 06:11:26* Test Item Value Reference Range Interpretation Comme nts LIPASE (test code = 1035344925) 155 U/L 0-220 Lab Interpretation (test cod e = 54842-0) [facility] [id number] 06:06:05* Test Item Value Reference Range Interpretation Comments TROPONIN I (test code = 7778909380) 0.002 ng/mL See_Comment [Automated message] The system [...] of biotin. Lab Interpretation (test code = 45540-0) [facility] LAR-[id number] 06:03:04* Test Item Value Reference Range Interpretation Comme nts NT-proBNP (test code = 0967220289) 19 pg/mL See_Comment [Automated message] The system which generated this result transmitted reference range: <=125. The reference range was not used to interpret this result as normal/abnormal. DARWIN (test code = DARWIN) Biotin has been reported to cause a negative bias, interpret results relative to patient's use of biotin. Lab Interpretation (test code = 00209-2) Normal [facility]. METABOLIC PANEL (79726)2021-05-28 05:54:25* Test Item Value Reference Range Interpretation Comme nts NA (test code = 3185344051) 136 mmol/L 135-145 K (test code = 1998662135) 3.2 mmol/L 3.5-5.0 L CL (test code = 1263985460) 109 mmol/L 98-108 H CO2 TOTAL (test code = 1557147865) 16 mmol/L 23-31 L AGAP (test code = 8381078358) 2-16 BUN (test code = 4997397270) 11 mg/dL 7-23 GLUCOSE (test code = 6737717987) 144 mg/dL 70-110 H CREATININE (test code = 2448468088) 0.84 mg/dL 0.50-1.04 TOTAL BILI (test code = 6604447189) 0.2 mg/dL 0.1-1.1 CALCIUM (test code = 2176817684) 9.4 mg/dL 8.6-10.6 T PROTEIN (test code = 5104929817) 6.9 g/dL 6.3-8.2 ALBUMIN (test code = 6043769849) 3.9 g/dL 3.5-5.0 ALK PHOS (test code = 7505092009) 106 U/L 34-122 ALTv (test code = 1742-6) 20 U/L 5-35 AST(SGOT) (test code = 9910811541) 17 U/L 13-40 eGFR (test code = 0039287927) mL/min/1.73m2 DARWIN (test code = DARWIN) Association [...] imaging tests). Lab Interpretation (test code = 87898-2) Abnormal [facility] WITH [id number] 05:40:06* Test Item Value Reference Range Interpretation Comme nts WBC (test code = 6690-2) See_Comment [Automated RedCap] The system which generated this result transmitted reference range: 4.30 - 11.10 10*3/?L. The reference range was not used to interpret this result as normal/abnormal. RBC (test code = 789-8) See_Comment [Automated [employer]Cap] The system which generated this result transmitted [...] 33.3 g/dL 31.6-35.1 RDW-SD (test code = 64119-6) 39.7 fL 39.0-49.9 RDW-CV (test code = 788-0) 13.6 % 12.0-15.5 PLT (test code = 777-3) See_Comment [Automated [employer]] The system which generated this result transmitted reference range: 166 - 358 10*3/?L. The reference range was not used to interpret this result as normal/abnormal. MPV (test code = 04688-5) 9.5 fL 9.5-12.9 NRBC/100 WBC (test code = 2690503531) See_Comment [Automated [employer] ssage] The system which generated this result transmitted reference range: 0.0 - 10.0 /100 WBCs. The reference range was not used to interpret this result as normal/abnormal. NRBC x10^3 (test code = 2418805660) <0.01 See_Comment [Automated [employer]] The system which generated this result transmitted reference range: 10*3/?L. The reference range was not used to interpret this result as normal/abnormal. GRAN MAT (NEUT) % (test code = 770-8) 53.7 % IMM GRAN % (test code = 2914649656) 0.50 % LYMPH % (test code = 736-9) 36.0 % MONO % (test code = 5905-5) 6.3 % EOS % (test code = 713-8) 2.8 % BASO % (test code = 706-2) 0.7 % GRAN MAT x10^3(ANC) (test code = 1220283070) 5.38 10*3/uL 1.88-7.09 IMM GRAN x10^3 (test code = 5848688455) 0.05 10*3/uL 0.00-0.06 LYMPH x10^3 (test code = 731-0) 3.60 10*3/uL 1.32-3.29 H MONO x10^3 (test code = 742-7) 0.63 10*3/uL 0.33-0.92 EOS x10^3 (test code = 711-2) 0.28 10*3/uL 0.03-0.39 BASO x10^3 (test code = 704-7) 0.07 10*3/uL 0.01-0.07 Lab Interpretation (test code = 30348-5) [facility] [id number] 05:32:00* Test Item Value Reference Range Interpretation Comme nts POCT PREG (test code = 1605) negative On board controls acceptable with C Line (test code = 3574) present POCT PREG LOT # (test code = 3575) [id number] POCT PREG TEST DATE ( test code = 3576) 08/07/2022 Lab Interpretation (test cod e = 39783-2) Normal [facility] System[facility]rop[facility] [id number] 11:13:57* Test Item Value Reference Range Interpretation Comments TROPONIN I (test code = 5802736350) 0.002 ng/mL See_Comment [Automated message] The system [...] of biotin. Lab Interpretation (test code = 44787-6) Normal [facility] Metabolic Panel (NA, K, CL, CO2, GLUCOSE, BUN, CREATININE, CA)2021-04-08 11:04:34* Test Item Value Reference Range Interpretation Comme nts NA (test code = 9566517357) 140 mmol/L 135-145 K (test code = 9734688558) 3.6 mmol/L 3.5-5.0 CL (test code = 9585529149) 111 mmol/L 98-108 H CO2 TOTAL (test code = 6883365381) 22 mmol/L 23-31 L AGAP (test code = 1918389581) 2-16 BUN (test code = 7010529106) 10 mg/dL 7-23 GLUCOSE (test code = 8160851251) 104 mg/dL 70-110 CREATININE (test code = 7287410447) 0.70 mg/dL 0.50-1.04 CALCIUM (test code = 0024885842) 8.7 mg/dL 8.6-10.6 eGFR (test code = 4703481656) mL/min/1.73m2 DARWIN (test code = DARWIN) Association [...] imaging tests). Lab Interpretation (test code = 34730-3) Abnormal [facility] with Fxunmmbibdoz1284-05-69 10:46:50* Test Item Value Reference Range Interpretation Comme nts WBC (test code = 6690-2) See_Comment [Automated [employer]] The system which generated this result transmitted reference range: 4.30 - 11.10 10*3/?L. The reference range was not used to interpret this result as normal/abnormal. RBC (test code = 789-8) See_Comment [Automated [employer]] The system which generated this result [...] 33.5 g/dL 31.6-35.1 RDW-SD (test code = 37764-1) 42.0 fL 39.0-49.9 RDW-CV (test code = 788-0) 14.1 % 12.0-15.5 PLT (test code = 777-3) See_Comment [Automated [employer]] The system which generated this result transmitted reference range: 166 - 358 10*3/?L. The reference range was not used to interpret this result as normal/abnormal. MPV (test code = 65193-4) 10.0 fL 9.5-12.9 NRBC/100 WBC (test code = 6781438091) See_Comment [Automated [employer] ssage] The system which generated this result transmitted reference range: 0.0 - 10.0 /100 WBCs. The reference range was not used to interpret this result as normal/abnormal. NRBC x10^3 (test code = 7368942537) <0.01 See_Comment [Automated me ssage] The system which generated this result transmitted reference range: 10*3/?L. The reference range was not used to interpret this result as normal/abnormal. GRAN MAT (NEUT) % (test code = 770-8) 59.1 % IMM GRAN % (test code = 5803353048) 0.70 % LYMPH % (test code = 736-9) 28.2 % MONO % (test code = 5905-5) 8.5 % EOS % (test code = 713-8) 3.0 % BASO % (test code = 706-2) 0.5 % GRAN MAT x10^3(ANC) (test code = 4630798789) 3.61 10*3/uL 1.88-7.09 IMM GRAN x10^3 (test code = 1542502122) 0.04 10*3/uL 0.00-0.06 LYMPH x10^3 (test code = 731-0) 1.72 10*3/uL 1.32-3.29 MONO x10^3 (test code = 742-7) 0.52 10*3/uL 0.33-0.92 EOS x10^3 (test code = 711-2) 0.18 10*3/uL 0.03-0.39 BASO x10^3 (test code = 704-7) 0.03 10*3/uL 0.01-0.07 [facility] [id number] 05:54:48* Test Item Value Reference Range Interpretation Comments TROPONIN I (test code = 7070258832) 0.002 ng/mL See_Comment [Automated message] The system [...] of biotin. Lab Interpretation (test code = 38476-6) Normal [facility] SystemThyroid Stimulating Hormone (TSH)2021-04-08 00:51:16* Test Item Value Reference Range Interpretation Comme nts TSH (test code = 0909410248) See_Comment [Automated [employer]] The system which generated this result transmitted reference range: 0.45 - 4.70 mIU/L. The reference range was not used to interpret this result as normal/abnormal. Lab Interpretation (test code = 94040-8) Normal [facility] SystemGlycosylated Hemoglobin (A1C)2021-04-08 00:26:53* Test Item Value Reference Range Interpretation Comme nts HGB A1C (test code = 4548-4) 5.5 % 4.0-5.7 DARWIN (test code = DARWIN) Reference RangesNormal: <5.7%Prediabetes: 5.7 - 6.4%Diabetes: > 6.5% Lab Interpretation (test code = 42152-3) Normal [facility] SystemLipid Panel (Total Cholesterol, Triglycerides, HDL)2021-04-08 00:20:12* Test Item Value Reference Range Interpretation Comme nts CHOL (test code = 0548964747) 223 mg/dL 120-200 H HDL (test code = 0804583182) 35 mg/dL >50 L HDLC RATIO (test code = 3689966572) See_Comment H [Automated [employer]] The system which generated this result transmitted reference range: <=4.5. The reference range was not used to interpret this result as normal/abnormal. TRIG (test code = 3762962065) 223 mg/dL 30-170 H LDL CHOL (test code = 11466-9) 143 mg/dL See_Comment [Automated [employer]] The system which generated this result transmitted reference range: <=160. The reference range was not used to interpret this result as normal/abnormal. VLDL (test code = 5429995988) 45 mg/dL 5-60 Lab Interpretation (test code = 68598-7) Abnormal [facility] SystemMagnesium Sevqi5731-10-42 00:20:07* Test Item Value Reference Range Interpretation Comme nts MAGNESIUM (test code = 7035057346) 1.7 mg/dL 1.7-2.4 Lab Interpretation (test cod e = 40824-6) Normal [facility] System[facility]. METABOLIC PANEL (58004)2021-04-07 23:04:13* Test Item Value Reference Range Interpretation Comme nts NA (test code = 2105121240) 139 mmol/L 135-145 K (test code = 7954929008) 3.4 mmol/L 3.5-5.0 L CL (test code = 8200535163) 109 mmol/L 98-108 H CO2 TOTAL (test code = 3438670213) 22 mmol/L 23-31 L AGAP (test code = 6798407412) 2-16 BUN (test code = 5768192027) 10 mg/dL 7-23 GLUCOSE (test code = 7562465607) 97 mg/dL 70-110 CREATININE (test code = 1183446395) 0.84 mg/dL 0.50-1.04 TOTAL BILI (test code = 1560004439) 0.3 mg/dL 0.1-1.1 CALCIUM (test code = 2475213297) 9.2 mg/dL 8.6-10.6 T PROTEIN (test code = 1548409740) 6.6 g/dL 6.3-8.2 ALBUMIN (test code = 7369440520) 3.8 g/dL 3.5-5.0 ALK PHOS (test code = 9146806039) 69 U/L 34-122 ALTv (test code = 1742-6) 18 U/L 5-35 AST(SGOT) (test code = 5110795757) 19 U/L 13-40 eGFR (test code = 4483821437) mL/min/1.73m2 DARWIN (test code = DARWIN) Association [...] imaging tests). Lab Interpretation (test code = 35084-7) [facility]normal [facility] [id number] 22:33:04* Test Item Value Reference Range Interpretation Comments TROPONIN I (test code = 8503123109) 0.001 ng/mL See_Comment [Automated message] The system [...] of biotin. Lab Interpretation (test code = 06946-8) Normal [facility]MINAL ZAU-SXD6892-32-01 22:30:05* Test Item Value Reference Range Interpretation Comme nts NT-proBNP (test code = 1781129556) 352 pg/mL See_Comment H [Automated message] The system which generated this result transmitted reference range: <=125. The reference range was not used to interpret this result as normal/abnormal. DARWIN (test code = DARWIN) Biotin has been reported to cause a negative bias, interpret results relative to patient's use of biotin. Lab Interpretation (test code = 54578-9) Abnormal [facility] SystemACTIVATED PARTIAL THRMPLAS [id number] 22:28:48* Test Item Value Reference Range Interpretation Comme [facility] APTT Patient (test code = 3173-2) See_Comment [Automated message] The system which generated this result transmitted reference range: 23 - 38 Seconds. The reference range was not used to interpret this result as normal/abnormal. DARWIN (test code = DARWIN) The [facility] patient population mean normal value for aPTT is 30 seconds. Lab Interpretation (test code = 15195-9) Normal [facility] SystemPROTHROMBIN TIME / [id number] 22:26:44* Test Item Value Reference Range Interpretation Comme [facility] PROTIME PATIENT (test code = 5964-2) See_Comment [Automated [employer]] The system which generated this result transmitted reference range: 12.0 - 14.7 Seconds. The reference range was not used to interpret this result as normal/abnormal. INR (test code = 6301-6) Normal INR <1.1; Warfarin Therapeutic range 2.0 to 3.0 or 2.5 to 3.5, depending upon the indications. Lab Interpretation (test code = 24570-1) Normal [facility] System[facility]IPASE2021-10-01 22:20:05* Test Item Value Reference Range Interpretation Comme [facility] LIPASE (test code = 6391915705) 66 U/L 0-220 Lab Interpretation (test cod e = 21638-5) Normal [facility] SystemCBC WITH [id number] 22:07:01* Test Item Value Reference Range Interpretation Comme [facility] WBC (test code = 6690-2) See_Comment [Automated [employer]] The system which generated this result transmitted reference range: 4.30 - 11.10 10*3/?L. The reference range was not used to interpret this result as normal/abnormal. RBC (test code = 789-8) See_Comment [Automated [employer]] The system which generated this result [...] 33.2 g/dL 31.6-35.1 RDW-SD (test code = 11020-6) 41.6 fL 39.0-49.9 RDW-CV (test code = 788-0) 14.1 % 12.0-15.5 PLT (test code = 777-3) See_Comment [Automated messa ge] The system which generated this result transmitted reference range: 166 - 358 10*3/?L. The reference range was not used to interpret this result as normal/abnormal. MPV (test code = 99255-1) 9.2 fL 9.5-12.9 L NRBC/100 WBC (test code = 1574266954) See_Comment [Automated [employer] ssage] The system which generated this result transmitted reference range: 0.0 - 10.0 /100 WBCs. The reference range was not used to interpret this result as normal/abnormal. NRBC x10^3 (test code = 8871023193) <0.01 See_Comment [Automated [employer]] The system which generated this result transmitted reference range: 10*3/?L. The reference range was not used to interpret this result as normal/abnormal. GRAN MAT (NEUT) % (test code = 770-8) 61.6 % IMM GRAN % (test code = 0737038340) 0.60 % LYMPH % (test code = 736-9) 28.7 % MONO % (test code = 5905-5) 4.9 % EOS % (test code = 713-8) 3.7 % BASO % (test code = 706-2) 0.5 % GRAN MAT x10^3(ANC) (test code = 0648151360) 6.24 10*3/uL 1.88-7.09 IMM GRAN x10^3 (test code = 9975887631) 0.06 10*3/uL 0.00-0.06 LYMPH x10^3 (test code = 731-0) 2.90 10*3/uL 1.32-3.29 MONO x10^3 (test code = 742-7) 0.50 10*3/uL 0.33-0.92 EOS x10^3 (test code = 711-2) 0.37 10*3/uL 0.03-0.39 BASO x10^3 (test code = 704-7) 0.05 10*3/uL 0.01-0.07 Lab Interpretation (test code = 73643-6) Abnormal [facility] SystemURINALYSIS2021-07-08 08:49:55* Test Item Value Reference Range Interpretation Comme nts APPEARANCE (test code = 4294778877) Cloudy Clear A COLOR (test code = 1745910887) Yellow Yellow PH (test code = 4072430457) 4.8-8.0 SP GRAVITY (test code = 1817826623) 1.003-1.030 GLU U QUAL (test code = 5524840584) Normal Normal BLOOD (test code = 7118500970) Negative Negative KETONES (test code = 8424613095) Negative Negative PROTEIN (test code = 2887-8) Negative Negative UROBILIN (test code = 5312626466) Normal Normal BILIRUBIN (test code = 3106630542) 2 mg/dL Negative A NITRITE (test code = 2713109586) Negative Negative LEUK MARC (test code = 5856694363) 75/uL Negative A RBC/HPF (test code = 3514319961) See_Comment H [Automated messa ge] The system which generated this result transmitted reference range: 0 - 3 HPF. The reference range was not used to interpret this result as normal/abnormal. WBC/HPF (test code = 7996386393) See_Comment H [Automated messa ge] The system which generated this result transmitted reference range: 0 - 5 HPF. The reference range was not used to interpret this result as normal/abnormal. BACTERIA (test code = 9992738003) Moderate Negative A MUCOUS (test code = 6970102511) Slight Negative LPF A SQ EPITH (test code = 3818812787) HPF YEAST BUD (test code = 9763615383) See_Comment H [Automated messa ge] The system which generated this result transmitted reference range: <=1 HPF. The reference range was not used to interpret this result as normal/abnormal. Ictotest (test code = 9627802436) Negative Lab Interpretation (test code = 04749-8) Abnormal [facility] System[facility]. METABOLIC PANEL (59879)2021-01-12 08:49:44* Test Item Value Reference Range Interpretation Comme nts NA (test code = 8835049804) 137 mmol/L 135-145 K (test code = 6253023378) 4.6 mmol/L 3.5-5.0 CL (test code = 3523000143) 108 mmol/L 98-108 CO2 TOTAL (test code = 5806977421) 21 mmol/L 23-31 L AGAP (test code = 4578348488) 2-16 BUN (test code = 0244102428) 19 mg/dL 7-23 GLUCOSE (test code = 6041063134) 107 mg/dL 70-110 CREATININE (test code = 0805102736) 0.63 mg/dL 0.50-1.04 TOTAL BILI (test code = 5254464093) 0.4 mg/dL 0.1-1.1 CALCIUM (test code = 7700698433) 9.2 mg/dL 8.6-10.6 T PROTEIN (test code = 2378657418) 7.4 g/dL 6.3-8.2 ALBUMIN (test code = 8077599412) 4.2 g/dL 3.5-5.0 ALK PHOS (test code = 2571619942) 179 U/L 34-122 H ALTv (test code = 1742-6) 113 U/L 5-35 H AST(SGOT) (test code = 5492187138) 38 U/L 13-40 eGFR (test code = 9321143762) mL/min/1.73m2 DARWIN (test code = DARWIN) Association [...] imaging tests). Lab Interpretation (test code = 27707-2) Abnormal [facility] WITH [id number] 08:11:02* Test Item Value Reference Range Interpretation Comme nts WBC (test code = 6690-2) See_Comment H [Automated [employer]] The system which generated this result transmitted reference range: 4.30 - 11.10 10*3/?L. The reference range was not used to interpret this result as normal/abnormal. RBC (test code = 789-8) See_Comment [[employer]] The system which generated this result transmitted [...] 33.3 g/dL 31.6-35.1 RDW-SD (test code = 54703-9) 41.6 fL 39.0-49.9 RDW-CV (test code = 788-0) 14.0 % 12.0-15.5 PLT (test code = 777-3) See_Comment [Automated messa ge] The system which generated this result transmitted reference range: 166 - 358 10*3/?L. The reference range was not used to interpret this result as normal/abnormal. MPV (test code = 50519-1) 9.5 fL 9.5-12.9 NRBC/100 WBC (test code = 8008828542) See_Comment [Automated [employer] ssage] The system which generated this result transmitted reference range: 0.0 - 10.0 /100 WBCs. The reference range was not used to interpret this result as normal/abnormal. NRBC x10^3 (test code = 6227443347) <0.01 See_Comment [Automated messa ge] The system which generated this result transmitted reference range: 10*3/?L. The reference range was not used to interpret this result as normal/abnormal. GRAN MAT (NEUT) % (test code = 770-8) 68.0 % IMM GRAN % (test code = 2875301846) 0.80 % LYMPH % (test code = 736-9) 23.6 % MONO % (test code = 5905-5) 5.1 % EOS % (test code = 713-8) 2.1 % BASO % (test code = 706-2) 0.4 % GRAN MAT x10^3(ANC) (test code = 5446945839) 8.86 10*3/uL 1.88-7.09 H IMM GRAN x10^3 (test code = 5819730799) 0.11 10*3/uL 0.00-0.06 H LYMPH x10^3 (test code = 731-0) 3.07 10*3/uL 1.32-3.29 MONO x10^3 (test code = 742-7) 0.66 10*3/uL 0.33-0.92 EOS x10^3 (test code = 711-2) 0.27 10*3/uL 0.03-0.39 BASO x10^3 (test code = 704-7) 0.05 10*3/uL 0.01-0.07 Lab Interpretation (test code = 80102-6) Abnormal [facility] [id number] 08:02:00* Test Item Value Reference Range Interpretation Comme nts POCT PREG (test code = 1605) negative On board controls acceptable with C Line (test code = 3574) positive POCT PREG LOT # (test code = 3575) [id number] POCT PREG TEST DATE ( test code = 3576) 07/07/2022 Lab Interpretation (test cod e = 31846-5) [facility]:55:05* Test Item Value Reference Range Interpretation Comme nts TROPONIN I (test code = 9395776503) 0.000 ng/mL See_Comment [Automated message] The system [...] biotin. ? Lab Interpretation (test code = 01015-3) Normal [facility] 1 [id number] 23:41:46No radiographic evidence of an acute cardiopulmonary process. RL: [id number]: [id number] EXAM: XR CHEST 1 VW ORDERING PROVIDER: BAL HASSAN HISTORY: CP COMPARISON: 12/04/2020 TECHNIQUE: Portable AP radiograph of the chest. FINDINGS: Overlying monitoring leads. There is no focal consolidation,pneumothorax or appreciable pleural effusion. The card iomediastinalsilhouette is within normal limits. Trachea is midline. No acute osseousabnormality identified. [facility], Radiant Results Inft User - 12/10/2020 6:42 PM CDT EXAM: XR CHEST 1 VWORDERING PROVIDER: BAL JEFFREYORY: JR COMPARISON: 12/04/2020 TECHNIQUE: Portable AP radiograph of the chest.FINDINGS: Overlying monitoring leads. There is no focal consolidation,pneumothorax or appreciable pleural effusion. The cardiomediastinalsilhouette is within normal limits. Trachea is midline. No acute osseousabnormality identified.IMPRESSIONNo radiographic evidence of an acute cardiopulmonary process.RL: [id number]: [id number] [facility] Troponin P3028-50-25 23:07:21* Test Item Value Reference Range Interpretation Comme nts TROPONIN I (test code = 5608115155) 0.000 ng/mL See_Comment [Automated message] The system [...] biotin. ? Lab Interpretation (test code = 26138-2) Normal [facility] TIW-LIY6497-96-05 23:04:20* Test Item Value Reference Range Interpretation Comme nts NT-proBNP (test code = 0220807375) 14 pg/mL See_Comment [Automated message] The system which generated this result transmitted reference range: <=125. The reference range was not used to interpret this result as normal/abnormal. DARWIN (test code = DARWIN) Biotin has been reported to cause a negative bias, interpret results relative to patient's use of biotin. Lab Interpretation (test code = 05576-1) Normal [facility] (ALB, T.PRO, BILI T, BU/BC, ALT, AST, ALK PHOS)2020-12-10 22:58:16* Test Item Value Reference Range Interpretation Comme nts TOTAL BILI (test code = 9423196114) 0.5 mg/dL 0.1-1.1 BILI UNCON (test code = 4387926451) 0.3 mg/dL 0.1-1.1 BILI CONJ (test code = 9389228123) 0.0 mg/dL 0.0-0.3 T PROTEIN (test code = 9690040326) 8.1 g/dL 6.3-8.2 ALBUMIN (test code = 5984362250) 4.7 g/dL 3.5-5.0 ALK PHOS (test code = 7188225004) 104 U/L 34-122 ALTv (test code = 1742-6) 18 U/L 5-35 AST(SGOT) (test code = 5044059929) 23 U/L 13-40 Lab Interpretation (test cod e = 64231-7) [facility] (NA, K, CL, CO2, GLUCOSE, BUN, CREATININE, CA)2020-12-10 22:57:56* Test Item Value Reference Range Interpretation Comme nts NA (test code = 4166829091) 135 mmol/L 135-145 K (test code = 2590811199) 3.7 mmol/L 3.5-5.0 CL (test code = 5803975494) 105 mmol/L 98-108 CO2 TOTAL (test code = 0070472759) 18 mmol/L 23-31 L AGAP (test code = 9083190628) 2-16 BUN (test code = 7529901325) 14 mg/dL 7-23 GLUCOSE (test code = 1627431719) 108 mg/dL 70-110 CREATININE (test code = 9877698126) 0.56 mg/dL 0.50-1.04 CALCIUM (test code = 8374959460) 9.8 mg/dL 8.6-10.6 eGFR (test code = 3287980123) mL/min/1.73m2 DARWIN (test code = DARWIN) Association [...] imaging tests). Lab Interpretation (test code = 15783-0) [facility]normal [facility] Vmhjo2187-75-01 22:57:56* Test Item Value Reference Range Interpretation Comme nts LIPASE (test code = 2829175182) 122 U/L 0-220 Lab Interpretation (test cod e = 49073-4) Normal [facility] SystemD-EDNLN7578-63-63 22:52:34* Test Item Value Reference Range Interpretation Comments D-DIMER (test code = 0375895556) See_Comment [Automated message] The system which generated [...] a diagnosis. Lab Interpretation (test code = 47664-1) Normal [facility] SystemUrinalysis2021-06-05 22:52:29* Test Item Value Reference Range Interpretation Comme nts APPEARANCE (test code = 0383988955) Hazy Clear A COLOR (test code = 7036361641) Yellow Yellow PH (test code = 1150940143) 4.8-8.0 SP GRAVITY (test code = 0629507475) 1.003-1.030 GLU U QUAL (test code = 9438726874) Normal Normal BLOOD (test code = 9566923801) Negative Negative KETONES (test code = 9077313061) Negative Negative PROTEIN (test code = 2887-8) Negative Negative UROBILIN (test code = 0970186924) Normal Normal BILIRUBIN (test code = 2449338619) 2 mg/dL Negative A NITRITE (test code = 1521646024) Negative Negative LEUK MARC (test code = 3659224342) 25/uL Negative A RBC/HPF (test code = 8453601401) See_Comment [Automated messa ge] The system which generated this result transmitted reference range: 0 - 3 HPF. The reference range was not used to interpret this result as normal/abnormal. WBC/HPF (test code = 9815461230) See_Comment [Automated [employer] ge] The system which generated this result transmitted reference range: 0 - 5 HPF. The reference range was not used to interpret this result as normal/abnormal. BACTERIA (test code = 4693119233) Few Negative A MUCOUS (test code = 5916475441) Slight Negative LPF A SQ EPITH (test code = 9752886251) HPF Lab Interpretation (test code = 93538-9) Abnormal [facility] with Cakswcpyscqy4237-73-84 22:45:56* Test Item Value Reference Range Interpretation [...] 33.5 g/dL 31.6-35.1 RDW-SD (test code = 02623-2) 40.5 fL 39.0-49.9 RDW-CV (test code = 788-0) 13.3 % 12.0-15.5 PLT (test code = 777-3) See_Comment H [Automated message] The system which generated this result transmitted reference range: 166 - 358 10*3/?L. The reference range was not used to interpret this result as normal/abnormal. MPV (test code = 29967-2) 9.2 fL 9.5-12.9 L NRBC/100 WBC (test code = 7157962199) See_Comment [Automated message] The system which generated this result transmitted reference range: 0.0 - 10.0 /100 WBCs. The reference range was not used to interpret this result as normal/abnormal. NRBC x10^3 (test code = 3167083625) <0.01 See_Comment [Automated message] The system which generated this result transmitted reference range: 10*3/?L. The reference range was not used to interpret this result as normal/abnormal. GRAN MAT (NEUT) % (test code = 770-8) 73.4 % IMM GRAN % (test code = 5710251115) 0.50 % LYMPH % (test code = 736-9) 17.5 % MONO % (test code = 5905-5) 6.5 % EOS % (test code = 713-8) 1.6 % BASO % (test code = 706-2) 0.5 % GRAN MAT x10^3(ANC) (test code = 1954132862) 10.21 10*3/uL 1.88-7.09 H IMM GRAN x10^3 (test code = 3214121244) 0.07 10*3/uL 0.00-0.06 H LYMPH x10^3 (test code = 731-0) 2.44 10*3/uL 1.32-3.29 MONO x10^3 (test code = 742-7) 0.90 10*3/uL 0.33-0.92 EOS x10^3 (test code = 711-2) 0.22 10*3/uL 0.03-0.39 BASO x10^3 (test code = 704-7) 0.07 10*3/uL 0.01-0.07 Lab Interpretation (test code = 84413-5) [facility]normal [facility] SystemPONY Ddlm0412-50-59 22:32:00* Test Item Value Reference Range Interpretation Comme nts POCT PREG (test code = 1605) negative On board controls acceptable with C Line (test code = 3574) present POCT PREG LOT # (test code = 3575) [id number] POCT PREG TEST DATE ( test code = 3576) 06/06/2022 Lab Interpretation (test cod e = 27737-1) Normal [facility] SystemUrinalysis2021-05-30 21:34:43* Test Item Value Reference Range Interpretation Comme nts APPEARANCE (test code = 0209996272) Clear Clear COLOR (test code = 4956585938) Yellow Yellow PH (test code = 1713393889) 4.8-8.0 SP GRAVITY (test code = 6928482075) 1.003-1.030 GLU U QUAL (test code = 4944008722) Normal Normal BLOOD (test code = 7866468670) Negative Negative KETONES (test code = 0541538749) Negative Negative PROTEIN (test code = 2887-8) Negative Negative UROBILIN (test code = 1676902911) Normal Normal BILIRUBIN (test code = 1912450597) Negative Negative NITRITE (test code = 8795382321) Negative Negative LEUK MARC (test code = 2802611872) Negative Negative RBC/HPF (test code = 5794370686) See_Comment [Automated [employer]] The system which generated this result transmitted reference range: 0 - 3 HPF. The reference range was not used to interpret this result as normal/abnormal. WBC/HPF (test code = 8373192840) <1 See_Comment [Automated [employer]] The system which generated this result transmitted reference range: 0 - 5 HPF. The reference range was not used to interpret this result as normal/abnormal. BACTERIA (test code = 5063467257) Negative Negative MUCOUS (test code = 7574992685) Slight Negative LPF A SQ EPITH (test code = 5211480595) HPF Lab Interpretation (test code = 60743-9) [facility]normal [facility] SystemPO[facility] Elsw2960-43-50 21:18:00* Test Item Value Reference Range Interpretation Comme nts POCT PREG (test code = 1605) negative On board controls acceptable with C Line (test code = 3574) present POCT PREG LOT # (test code = 3575) [id number] POCT PREG TEST DATE ( test code = 357) 06/06/2022 Lab Interpretation (test cod e = 64384-8) Normal [facility] SystemXR ANKLE 3+ VW IYFH3796-40-21 21:11:00No acute bony abnormality. Preliminary Report Dictated by Resident: Regulo Travis MD., have reviewed this study and agree with the abovereport.EXAM: XR ANKLE 3+ VW LEFT HISTORY: 40 years-old Female with fall, lateral pain COMPARISON: None. FINDINGS: Radiographs of the left ankle demonstrate no acute fractures ordislocations. Posterior and plantar calcaneal enthesophytes are noted.Joint spaces are preserved. Alignment is within normal limits. The softtissues are unremarkable. Txmb, Radiant Results Inft User - 12/04/2020 4:12 [...] acute bony abnormality.Preliminary Report Dictated by Resident: Regulo Ramos MD., have reviewed this study and agree with the abovereport.[facility] W5551-63-08 20:59:44* Test Item Value Reference Range Interpretation Comme nts TROPONIN I (test code = 7044108085) 0.000 ng/mL See_Comment [Automated message] The system [...] biotin. ? Lab Interpretation (test code = 91552-2) Normal [facility] System[facility] Sjwqk9840-76-81 20:48:20* Test Item Value Reference Range Interpretation Comme nts LIPASE (test code = 2972582501) 96 U/L 0-220 Lab Interpretation (test cod e = 20411-3) Normal [facility] SystemBasic Metabolic Panel (NA, K, CL, CO2, GLUCOSE, BUN, CREATININE, CA)2020-12-04 20:48:20* Test Item Value Reference Range Interpretation Comme nts NA (test code = 1439518277) 138 mmol/L 135-145 K (test code = 3545689528) 3.8 mmol/L 3.5-5.0 CL (test code = 6970273513) 108 mmol/L 98-108 CO2 TOTAL (test code = 0501288252) 21 mmol/L 23-31 L AGAP (test code = 2846560506) 2-16 BUN (test code = 5081245949) 13 mg/dL 7-23 GLUCOSE (test code = 5715399905) 107 mg/dL 70-110 CREATININE (test code = 0627492213) 0.66 mg/dL 0.50-1.04 CALCIUM (test code = 1584883126) 9.3 mg/dL 8.6-10.6 eGFR (test code = 2418211771) mL/min/1.73m2 DARWIN (test code = DARWIN) Association [...] imaging tests). Lab Interpretation (test code = 67190-9) Abnormal [facility] SystemHepatic Function Panel (ALB, T.PRO, BILI T, BU/BC, ALT, AST, ALK PHOS)2020-12-04 20:48:20* Test Item Value Reference Range Interpretation Comme nts TOTAL BILI (test code = 3990840370) 0.3 mg/dL 0.1-1.1 BILI UNCON (test code = 9686717255) 0.1 mg/dL 0.1-1.1 BILI CONJ (test code = 1075091614) 0.0 mg/dL 0.0-0.3 T PROTEIN (test code = 8343812192) 7.0 g/dL 6.3-8.2 ALBUMIN (test code = 7802630271) 4.0 g/dL 3.5-5.0 ALK PHOS (test code = 8362718435) 114 U/L 34-122 ALTv (test code = 1742-6) 30 U/L 5-35 AST(SGOT) (test code = 9023379784) 23 U/L 13-40 Lab Interpretation (test cod e = 64534-4) Normal [facility] SystemCB with Brewoeicpkzs1204-54-72 20:35:01* Test Item Value Reference Range Interpretation Comme nts WBC (test code = 6690-2) See_Comment [Automated [employer]] The system which generated this result transmitted [...] 34.0 g/dL 31.6-35.1 RDW-SD (test code = 29810-8) 39.8 fL 39.0-49.9 RDW-CV (test code = 788-0) 12.9 % 12.0-15.5 PLT (test code = 777-3) See_Comment [Automated [employer]] The system which generated this result transmitted reference range: 166 - 358 10*3/?L. The reference range was not used to interpret this result as normal/abnormal. MPV (test code = 79696-9) 9.3 fL 9.5-12.9 L NRBC/100 WBC (test code = 3611909670) See_Comment [Automated [employer] ssage] The system which generated this result transmitted reference range: 0.0 - 10.0 /100 WBCs. The reference range was not used to interpret this result as normal/abnormal. NRBC x10^3 (test code = 3497206165) <0.01 See_Comment [Automated messa ge] The system which generated this result transmitted reference range: 10*3/?L. The reference range was not used to interpret this result as normal/abnormal. GRAN MAT (NEUT) % (test code = 770-8) 71.5 % IMM GRAN % (test code = 0466568416) 0.30 % LYMPH % (test code = 736-9) 19.8 % MONO % (test code = 5905-5) 6.2 % EOS % (test code = 713-8) 1.8 % BASO % (test code = 706-2) 0.4 % GRAN MAT x10^3(ANC) (test code = 2172940091) 6.79 10*3/uL 1.88-7.09 IMM GRAN x10^3 (test code = 5435380231) 0.03 10*3/uL 0.00-0.06 LYMPH x10^3 (test code = 731-0) 1.88 10*3/uL 1.32-3.29 MONO x10^3 (test code = 742-7) 0.59 10*3/uL 0.33-0.92 EOS x10^3 (test code = 711-2) 0.17 10*3/uL 0.03-0.39 BASO x10^3 (test code = 704-7) 0.04 10*3/uL 0.01-0.07 Lab Interpretation (test code = 55175-8) Abnormal [facility] SystemDRUG SCREEN ER (URINE)2020-11-04 02:54:38* Test Item Value Reference Range Interpretation Comme nts AMPHET (test code = 7855027280) Negative Negative Cocaine Metabolite (test code = 2866099526) Negative Negative OPIATES (test code = 0514603928) Presumptive Positive Negative A THC (test code = 2460302011) Negative Negative DARWIN (test code = DARWIN) Urine Drug Cutoff Ranges Amphetamine: ? 1,000 ng/mLCocaine: ? 150 ng/mLOpiates: ? 300 ng/mLCannabinoids: ?50 ng/mL The results are to be used only for medical (i.e., treatment) purposes. Unconfirmed screening results must not be used for non-medical purposes (e.g., employment testing, legal testing). Lab Interpretation (test code = 81336-8) Abnormal [facility] SystemTROPONIN G8479-55-05 02:51:11* Test Item Value Reference Range Interpretation Comme nts TROPONIN I (test code = 8171125927) 0.001 ng/mL See_Comment [Automated message] The system [...] biotin. ? Lab Interpretation (test code = 74659-4) Normal [facility] SystemaPTT2021-04-30 02:41:10* Test Item Value Reference Range Interpretation Comme nts APTT Patient (test code = 3173-2) See_Comment [Automated message] The system which generated this result transmitted reference range: 23 - 38 Seconds. The reference range was not used to interpret this result as normal/abnormal. DARWIN (test code = DARWIN) The [facility] patient population mean normal value for aPTT is 30 seconds. Lab Interpretation (test code = 55388-8) Normal [facility] SystemURINALYSIS2021-04-30 02:40:40* Test Item Value Reference Range Interpretation Comme nts APPEARANCE (test code = 8116922716) Clear Clear COLOR (test code = 0009888893) Yellow Yellow PH (test code = 2323284959) 4.8-8.0 SP GRAVITY (test code = 3524181487) 1.003-1.030 GLU U QUAL (test code = 1539287262) Normal Normal BLOOD (test code = 5065470602) Negative Negative KETONES (test code = 0409788332) Negative Negative PROTEIN (test code = 4545-8) Negative Negative UROBILIN (test code = 7413940925) Normal Normal BILIRUBIN (test code = 0426660119) Negative Negative NITRITE (test code = 4815466965) Negative Negative LEUK MARC (test code = 9771157807) Negative Negative RBC/HPF (test code = 9851902029) <1 See_Comment [Automated messa ge] The system which generated this result transmitted reference range: 0 - 3 HPF. The reference range was not used to interpret this result as normal/abnormal. WBC/HPF (test code = 7835265743) <1 See_Comment [Automated messa ge] The system which generated this result transmitted reference range: 0 - 5 HPF. The reference range was not used to interpret this result as normal/abnormal. BACTERIA (test code = 1757921842) Negative Negative MUCOUS (test code = 2537940759) Slight Negative LPF A SQ EPITH (test code = 2700388293) HPF Lab Interpretation (test code = 58658-3) Abnormal [facility]. METABOLIC PANEL (15891)2020-11-04 02:40:09* Test Item Value Reference Range Interpretation Comme nts NA (test code = 1088759720) 141 mmol/L 135-145 K (test code = 8643155562) 4.1 mmol/L 3.5-5.0 CL (test code = 5227561113) 110 mmol/L 98-108 H CO2 TOTAL (test code = 8165883527) 22 mmol/L 23-31 L AGAP (test code = 3630944189) 2-16 BUN (test code = 5313818004) 15 mg/dL 7-23 GLUCOSE (test code = 1807147133) 115 mg/dL 70-110 H CREATININE (test code = 4557050705) 0.69 mg/dL 0.50-1.04 TOTAL BILI (test code = 1220281368) 0.2 mg/dL 0.1-1.1 CALCIUM (test code = 8514463967) 9.2 mg/dL 8.6-10.6 T PROTEIN (test code = 4886773922) 6.8 g/dL 6.3-8.2 ALBUMIN (test code = 5875375602) 4.1 g/dL 3.5-5.0 ALK PHOS (test code = 4377224268) 69 U/L 34-122 ALTv (test code = 1742-6) 20 U/L 5-35 AST(SGOT) (test code = 6867424691) 23 U/L 13-40 eGFR (test code = 6287351235) mL/min/1.73m2 DARWIN (test code = DARWIN) Association [...] imaging tests). Lab Interpretation (test code = 92319-9) Abnormal [facility] SystemLIPASE, HJMYA2755-17-04 02:39:49* Test Item Value Reference Range Interpretation Comme [facility] LIPASE (test code = 5979654977) 117 U/L 0-220 Lab Interpretation (test cod e = 50783-5) Normal [facility] SystemPROTHROMBIN TIME / EAP5134-67-04 02:39:08* Test Item Value Reference Range Interpretation Comme [facility] PROTIME PATIENT (test code = 5964-2) See_Comment [Automated messa ge] The system which generated this result transmitted reference range: 12.0 - 14.7 Seconds. The reference range was not used to interpret this result as normal/abnormal. INR (test code = 6301-6) Normal INR <1.1; Warfarin Therapeutic range 2.0 to 3.0 or 2.5 to 3.5, depending upon the indications. Lab Interpretation (test code = 19629-5) Normal [facility] WITH RDUD2861-17-10 02:30:11* Test Item Value Reference Range Interpretation [...] 32.8 g/dL 31.6-35.1 RDW-SD (test code = 65844-9) 44.1 fL 39.0-49.9 RDW-CV (test code = 788-0) 13.8 % 12.0-15.5 PLT (test code = 777-3) See_Comment [Automated messa ge] The system which generated this result transmitted reference range: 166 - 358 10*3/?L. The reference range was not used to interpret this result as normal/abnormal. MPV (test code = 64289-4) 9.6 fL 9.5-12.9 NRBC/100 WBC (test code = 9358838318) See_Comment [Automated [employer] ssage] The system which generated this result transmitted reference range: 0.0 - 10.0 /100 WBCs. The reference range was not used to interpret this result as normal/abnormal. NRBC x10^3 (test code = 7293858298) <0.01 See_Comment [Automated messa ge] The system which generated this result transmitted reference range: 10*3/?L. The reference range was not used to interpret this result as normal/abnormal. GRAN MAT (NEUT) % (test code = 770-8) 65.9 % IMM GRAN % (test code = 1762732982) 0.70 % LYMPH % (test code = 736-9) 25.9 % MONO % (test code = 5905-5) 5.1 % EOS % (test code = 713-8) 2.0 % BASO % (test code = 706-2) 0.4 % GRAN MAT x10^3(ANC) (test code = 1345966149) 8.82 10*3/uL 1.88-7.09 H IMM GRAN x10^3 (test code = 7044023113) 0.09 10*3/uL 0.00-0.06 H LYMPH x10^3 (test code = 731-0) 3.46 10*3/uL 1.32-3.29 H MONO x10^3 (test code = 742-7) 0.68 10*3/uL 0.33-0.92 EOS x10^3 (test code = 711-2) 0.27 10*3/uL 0.03-0.39 BASO x10^3 (test code = 704-7) 0.05 10*3/uL 0.01-0.07 Lab Interpretation (test code = 86275-9) Abnormal [facility] SystemCOVID-[facility] (ID NOW RAPID TESTING)2020-09-17 16:56:05* Test Item Value Reference Range Interpretation Comme nts SARS-CoV-2 Rapid ID NOW (test code = 60958-5) Not Detected Not Detected DARWIN (test code = DARWIN) ID NOW COVID-19 As say is an isothermal nucleic acid amplification test intended for the qualitative detection of nucleic acid from SARS-CoV-2 viral RNA in nasopharyngeal (CHALK [employer]) specimens. It is used under Emergency Use [...] clinically indicated. Lab Interpretation (test code = 65981-7) Normal [facility] SystemRAPID STREP SCREEN FOR GROUP [id number] 16:54:09* Test Item Value Reference Range Interpretation Comme nts Streptococcus pyogenes (grou p A) antigen (test code = 71608-6) Negative Negative Lab Interpretation (test cod e = 03486-9) Normal [facility] SystemXR HAND 3+ VW HQNF3206-35-70 07:29:48 Impression: No acute fracture or dislocation. RL: 2824AFC: 90722 End of Report Exam: Left Hand, 09/07/2020 [...] swelling.IMPRESSIONImpression: No acute fracture or dislocation.RL: 2824AFC: 18089Ubp of Report [facility]XR [facility] 2 VW ULIJ7310-18-72 07:28:55No acute abnormality of the left forearm. RL: 6200AFC: 69663 Patient name: CHARITY MONROYOB: 1980 40 years EXAMINATION: [...] intact.IMPRESSIONNo acute abnormality of the left forearm.RL: 6200AFC: 65130 [facility] 09:06:00* Test Item Value Reference Range Interpretation Comme nts APPEARANCE (test code = 1621803844) Hazy Clear A COLOR (test code = 2343697448) Yellow Yellow PH (test code = 1691680257) 4.8-8.0 SP GRAVITY (test code = 2938977047) 1.003-1.030 GLU U QUAL (test code = 3577827278) Normal Normal BLOOD (test code = 4595008770) Negative Negative KETONES (test code = 7518771228) Negative Negative PROTEIN (test code = 2887-8) Negative Negative UROBILIN (test code = 3643151898) Normal Normal BILIRUBIN (test code = 8461294262) Negative Negative NITRITE (test code = 3630798798) Negative Negative LEUK MARC (test code = 9065975569) Negative Negative RBC/HPF (test code = 0444156343) See_Comment [Automated messa ge] The system which generated this result transmitted reference range: 0 - 3 HPF. The reference range was not used to interpret this result as normal/abnormal. WBC/HPF (test code = 4234051374) <1 See_Comment [Automated messa ge] The system which generated this result transmitted reference range: 0 - 5 HPF. The reference range was not used to interpret this result as normal/abnormal. BACTERIA (test code = 0461754830) Moderate Negative A SQ EPITH (test code = 5940920982) HPF Lab Interpretation (test code = 79995-7) Abnormal [facility] with Snijxcylqesz7611-42-18 08:50:00* Test Item Value Reference Range Interpretation [...] 34.0 g/dL 31.6-35.1 RDW-SD (test code = 62387-5) 42.6 fL 39-49.9 RDW-CV (test code = 788-0) 13.6 % 12-15.5 PLT (test code = 777-3) See_Comment H [Automated messa ge] The system which generated this result transmitted reference range: 166 - 358 10*3/?L. The reference range was not used to interpret this result as normal/abnormal. MPV (test code = 50770-5) 9.7 fL 9.5-12.9 NRBC/100 WBC (test code = 8846442627) See_Comment [Automated me ssage] The system which generated this result transmitted reference range: 0.0 - 10.0 /100 WBCs. The reference range was not used to interpret this result as normal/abnormal. NRBC x10^3 (test code = 4713069272) <0.01 See_Comment [Automated messa ge] The system which generated this result transmitted reference range: 10*3/?L. The reference range was not used to interpret this result as normal/abnormal. GRAN MAT (NEUT) % (test code = 770-8) 49.7 % IMM GRAN % (test code = 3118714751) 0.50 % LYMPH % (test code = 736-9) 41.0 % MONO % (test code = 5905-5) 6.5 % EOS % (test code = 713-8) 1.9 % BASO % (test code = 706-2) 0.4 % GRAN MAT x10^3(ANC) (test code = 4465477491) 6.39 10*3/uL 1.88-7.09 IMM GRAN x10^3 (test code = 9956055712) 0.07 10*3/uL 0-0.06 H LYMPH x10^3 (test code = 731-0) 5.27 10*3/uL 1.32-3.29 H MONO x10^3 (test code = 742-7) 0.84 10*3/uL 0.33-0.92 EOS x10^3 (test code = 711-2) 0.24 10*3/uL 0.03-0.39 BASO x10^3 (test code = 704-7) 0.05 10*3/uL 0.01-0.07 Lab Interpretation (test code = 20795-5) Abnormal [facility] SystemPO[facility] Twfj4078-32-99 08:45:00* Test Item Value Reference Range Interpretation Comme nts POCT PREG (test code = 1605) neg On board controls acceptable with C Line (test code = 3574) yes POCT PREG LOT # (test code = 3575) [id number] POCT PREG TEST DATE ( test code = 3576) 04/06/2022 Lab Interpretation (test cod e = 94648-1) Normal [facility] SystemComplete Metabolic Wjzen7610-40-53 08:30:00* Test Item Value Reference Range Interpretation Comme nts NA (test code = 0133862953) 137 mmol/L 135-145 K (test code = 9545150354) 3.3 mmol/L 3.5-5 L CL (test code = 3790688705) 102 mmol/L 98-108 CO2 TOTAL (test code = 6313030039) 24 mmol/L 23-31 AGAP (test code = 6827149605) 2-16 BUN (test code = 9218586488) 9 mg/dL 7-23 GLUCOSE (test code = 6315278291) 116 mg/dL 70-110 H CREATININE (test code = 4178368490) 0.48 mg/dL 0.5-1.04 L TOTAL BILI (test code = 4335675328) 0.3 mg/dL 0.1-1.1 CALCIUM (test code = 0600901727) 9.4 mg/dL 8.6-10.6 T PROTEIN (test code = 1257509740) 7.0 g/dL 6.3-8.2 ALBUMIN (test code = 5421321742) 4.3 g/dL 3.5-5 ALK PHOS (test code = 2165012638) 127 U/L 34-122 H ALTv (test code = 1742-6) 87 U/L 5-35 H AST(SGOT) (test code = 0158199382) 34 U/L 13-40 eGFR Calculation (Non-) (test code = 2625761311) mL/min/1.73m2 eGFR Calculation () (test code = 2769610804) mL/min/1.73m2 DARWIN (test code = DARWIN) Association [...] imaging tests). Lab Interpretation (test code = 02851-3) Abnormal [facility] SystemLip[facility], Sigjb4352-00-17 08:30:00* Test Item Value Reference Range Interpretation Comme nts LIPASE (test code = 1966864511) 297 U/L 0-220 H Lab Interpretation (test cod e = 38933-4) Abnormal [facility] SystemURINALYSIS2021-02-07 19:25:00* Test Item Value Reference Range Interpretation Comme nts APPEARANCE (test code = 8276724244) Clear Clear COLOR (test code = 5018928933) Straw Yellow A PH (test code = 7751565916) 4.8-8.0 SP GRAVITY (test code = 8686303329) 1.003-1.030 GLU U QUAL (test code = 1022606200) Normal Normal BLOOD (test code = 0181973466) 1+ Negative A KETONES (test code = 3408788976) Negative Negative PROTEIN (test code = 2887-8) Negative Negative UROBILIN (test code = 1591192949) Normal Normal BILIRUBIN (test code = 4498728360) Negative Negative NITRITE (test code = 5938630830) Negative Negative LEUK MARC (test code = 0453103557) Negative Negative RBC/HPF (test code = 5616125952) See_Comment [Automated [employer]] The system which generated this result transmitted reference range: 0 - 3 HPF. The reference range was not used to interpret this result as normal/abnormal. WBC/HPF (test code = 3377585736) <1 See_Comment [Automated messa ge] The system which generated this result transmitted reference range: 0 - 5 HPF. The reference range was not used to interpret this result as normal/abnormal. BACTERIA (test code = 2982293059) Few Negative A MUCOUS (test code = 7778486668) Slight Negative LPF A SQ EPITH (test code = 5426981430) HPF Lab Interpretation (test code = 96736-4) Abnormal [facility] SystemTROP[facility]IN J3076-79-61 19:09:00* Test Item Value Reference Range Interpretation Comme nts TROPONIN I (test code = 7956927354) <0.012 See_Comment [Automated message] The system which [...] biotin. ? Lab Interpretation (test code = 12561-1) Normal [facility] / [facility] - DRUG SCREEN [id number] 19:09:00* Test Item Value Reference Range Interpretation Comme nts BENZO U (test code = 7274810980) Presumptive Positive Negative A ROSA U (test code = 0501060870) Negative Negative AMPHET (test code = 3853772304) Negative Negative THC (test code = 0477217755) Negative Negative METHADONE (test code = 7271381652) Negative Negative Meth U (test code = 5300354567) Negative Negative OPIATES (test code = 9479253252) Negative Negative Cocaine Metabolite (test code = 0573993418) Negative Negative PROPOXY (test code = 7761318687) Negative Negative Tric U (test code = 9606860461) Negative Negative PCP (test code = 4507472488) Negative Negative OXYCOD (test code = 7081151330) Negative Negative DARWIN (test code = DARWIN) [...] legal testing). Lab Interpretation (test code = 86652-9) [facility] (32260)2020-08-14 19:01:00* Test Item Value Reference Range Interpretation Comme nts NA (test code = 5455228169) 138 mmol/L 135-145 K (test code = 7254726173) 4.5 mmol/L 3.5-5 CL (test code = 3590773763) 106 mmol/L 98-108 CO2 TOTAL (test code = 9599672912) 21 mmol/L 23-31 L AGAP (test code = 0235839259) 2-16 BUN (test code = 1405560295) 13 mg/dL 7-23 GLUCOSE (test code = 0772237448) 97 mg/dL 70-110 CREATININE (test code = 0920027003) 0.48 mg/dL 0.5-1.04 L TOTAL BILI (test code = 8369099029) 0.4 mg/dL 0.1-1.1 CALCIUM (test code = 7083444866) 9.1 mg/dL 8.6-10.6 T PROTEIN (test code = 4145639906) 7.5 g/dL 6.3-8.2 ALBUMIN (test code = 1757577410) 4.3 g/dL 3.5-5 ALK PHOS (test code = 4848842492) 62 U/L 34-122 ALTv (test code = 1742-6) 19 U/L 5-35 AST(SGOT) (test code = 6639361595) 26 U/L 13-40 eGFR Calculation (Non-) (test code = 0531032234) mL/min/1.73m2 eGFR Calculation () (test code = 2584280590) mL/min/1.73m2 DARWIN (test code = DARWIN) Association [...] imaging tests). Lab Interpretation (test code = 66911-4) [facility]2021-[facility] 19:01:00* Test Item Value Reference Range Interpretation Comme nts LIPASE (test code = 8467462356) 76 U/L 0-220 Lab Interpretation (test cod e = 61930-8) [facility] WITH [id number] 18:47:00* Test Item Value Reference Range Interpretation [...] 34.3 g/dL 31.6-35.1 RDW-SD (test code = 63354-9) 42.0 fL 39-49.9 RDW-CV (test code = 788-0) 13.4 % 12-15.5 PLT (test code = 777-3) See_Comment [Automated messa ge] The system which generated this result transmitted reference range: 166 - 358 10*3/?L. The reference range was not used to interpret this result as normal/abnormal. MPV (test code = 68001-2) 9.9 fL 9.5-12.9 NRBC/100 WBC (test code = 1706984122) See_Comment [Automated me ssage] The system which generated this result transmitted reference range: 0.0 - 10.0 /100 WBCs. The reference range was not used to interpret this result as normal/abnormal. NRBC x10^3 (test code = 5854272479) <0.01 See_Comment [Automated messa ge] The system which generated this result transmitted reference range: 10*3/?L. The reference range was not used to interpret this result as normal/abnormal. GRAN MAT (NEUT) % (test code = 770-8) 60.1 % IMM GRAN % (test code = 8722320809) 0.40 % LYMPH % (test code = 736-9) 31.3 % MONO % (test code = 5905-5) 6.0 % EOS % (test code = 713-8) 1.9 % BASO % (test code = 706-2) 0.3 % GRAN MAT x10^3(ANC) (test code = 0045051245) 6.96 10*3/uL 1.88-7.09 IMM GRAN x10^3 (test code = 0820447852) 0.05 10*3/uL 0-0.06 LYMPH x10^3 (test code = 731-0) 3.62 10*3/uL 1.32-3.29 H MONO x10^3 (test code = 742-7) 0.69 10*3/uL 0.33-0.92 EOS x10^3 (test code = 711-2) 0.22 10*3/uL 0.03-0.39 BASO x10^3 (test code = 704-7) 0.04 10*3/uL 0.01-0.07 Lab Interpretation (test code = 53895-3) [facility]normal [facility]ST 1 [id number] 18:17:08No acute cardiopulmonary abnormality. Preliminary Report Dictated by Resident: Yessi Espinoza I, Adam Pak MD., have reviewed this study and agree [...] acute cardiopulmonary abnormality.Preliminary Report Dictated by Resident: Yessi Tate, Adam Mckenzie MD., have reviewed this study and agree with theabove report.[facility] SystemLactic Acid Whole [id number] 18:11:00* Test Item Value Reference Range Interpretation Comme nts LACTIC ACID (test code = 3225882199) 1.95 mmol/L 0.5-2.2 Lab Interpretation (test cod e = 79421-6) Normal [facility] ABDOMEN PELVIS WO [id number] 05:45:24No acute abdominopelvic abnormality. No urolithiasis. 2.5 cm left adrenal adenoma. 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 Preliminary Report Dictated by Resident: Jona Whalen MD., have reviewed this study and [...] spinal canal stenosis.Preliminary Report Dictated by Resident: Murail Mckenzie, Jona Wisdom MD., have reviewed this study and agree with the abovereport.[facility] SystemPONY [id number] 03:10:00* Test Item Value Reference Range Interpretation Comme nts POCT PREG (test code = 1605) Negative On board controls acceptable with C Line (test code = 3574) Present POCT PREG LOT # (test code = 3575) [id number] POCT PREG TEST DATE ( test code = 3576) 03/07/2022 Lab Interpretation (test cod e = 53035-7) Normal [facility] with Qnbqynggnnqf2224-85-34 03:05:00* Test Item Value Reference Range Interpretation [...] 34.7 g/dL 31.6-35.1 RDW-SD (test code = 07135-2) 42.0 fL 39-49.9 RDW-CV (test code = 788-0) 13.5 % 12-15.5 PLT (test code = 777-3) See_Comment [Automated message] The system which generated this result transmitted reference range: 166 - 358 10*3/?L. The reference range was not used to interpret this result as normal/abnormal. MPV (test code = 75547-3) 9.8 fL 9.5-12.9 NRBC/100 WBC (test code = 1723602305) See_Comment [Automated message] The system which generated this result transmitted reference range: 0.0 - 10.0 /100 WBCs. The reference range was not used to interpret this result as normal/abnormal. NRBC x10^3 (test code = 4985444198) <0.01 See_Comment [Automated message] The system which generated this result transmitted reference range: 10*3/?L. The reference range was not used to interpret this result as normal/abnormal. GRAN MAT (NEUT) % (test code = 770-8) 66.2 % IMM GRAN % (test code = 2567574374) 0.60 % LYMPH % (test code = 736-9) 25.4 % MONO % (test code = 5905-5) 5.6 % EOS % (test code = 713-8) 1.9 % BASO % (test code = 706-2) 0.3 % GRAN MAT x10^3(ANC) (test code = 8635995443) 10.64 10*3/uL 1.88-7.09 H IMM GRAN x10^3 (test code = 0283914756) 0.09 10*3/uL 0-0.06 H LYMPH x10^3 (test code = 731-0) 4.09 10*3/uL 1.32-3.29 H MONO x10^3 (test code = 742-7) 0.90 10*3/uL 0.33-0.92 EOS x10^3 (test code = 711-2) 0.31 10*3/uL 0.03-0.39 BASO x10^3 (test code = 704-7) 0.05 10*3/uL 0.01-0.07 Lab Interpretation (test code = 22081-9) Abnormal [facility] SystemUrinalysis2021-02-04 02:56:00* Test Item Value Reference Range Interpretation Comme nts APPEARANCE (test code = 7315695067) Hazy Clear A COLOR (test code = 8433882238) Yellow Yellow PH (test code = 4001711914) 4.8-8.0 SP GRAVITY (test code = 8778030924) 1.003-1.030 GLU U QUAL (test code = 4157991798) Normal Normal BLOOD (test code = 0307143713) Negative Negative KETONES (test code = 1920888732) Negative Negative PROTEIN (test code = 2887-8) Negative Negative UROBILIN (test code = 6219183110) Normal Normal BILIRUBIN (test code = 4226269504) Negative Negative NITRITE (test code = 3893558126) Negative Negative LEUK MARC (test code = 0940340036) Negative Negative RBC/HPF (test code = 7207976189) See_Comment [Automated [employer]] The system which generated this result transmitted reference range: 0 - 3 HPF. The reference range was not used to interpret this result as normal/abnormal. WBC/HPF (test code = 3006984704) See_Comment [Automated [employer]] The system which generated this result transmitted reference range: 0 - 5 HPF. The reference range was not used to interpret this result as normal/abnormal. BACTERIA (test code = 7217851566) Few Negative A MUCOUS (test code = 1154904283) Slight Negative LPF A SQ EPITH (test code = 8898286065) HPF YEAST BUD (test code = 7650047729) See_Comment H [Automated [employer]] The system which generated this result transmitted reference range: <=1 HPF. The reference range was not used to interpret this result as normal/abnormal. Lab Interpretation (test code = 24755-2) Abnormal [facility] [id number] 02:24:00* Test Item Value Reference Range Interpretation Comme nts TROPONIN I (test code = 2146866040) <0.012 See_Comment [Automated message] The system which [...] biotin. ? Lab Interpretation (test code = 07778-5) Normal [facility] (ID NOW RAPID TESTING)2020-08-11 02:15:00* Test Item Value Reference Range Interpretation Comme nts SARS-CoV-2 Rapid ID NOW (test code = 43549-4) Not Detected Not Detected DARWIN (test code = DARWIN) ID NOW COVID-19 As say is an isothermal nucleic acid amplification test intended for the qualitative detection of nucleic acid from SARS-CoV-2 viral RNA in nasopharyngeal (CHALK TESTER) specimens. It is used under Emergency Use [...] clinically indicated. Lab Interpretation (test code = 61932-6) Normal [facility] System[facility] Metabolic Panel (NA, K, CL, CO2, GLUCOSE, BUN, CREATININE, CA)2020-08-11 02:13:00* Test Item Value Reference Range Interpretation Comme nts NA (test code = 7009543815) 137 mmol/L 135-145 K (test code = 2188226003) 4.0 mmol/L 3.5-5 CL (test code = 9279020250) 107 mmol/L 98-108 CO2 TOTAL (test code = 5880292707) 19 mmol/L 23-31 L AGAP (test code = 0396188624) 2-16 BUN (test code = 4464102407) 10 mg/dL 7-23 GLUCOSE (test code = 7390998137) 106 mg/dL 70-110 CREATININE (test code = 1871988878) 0.47 mg/dL 0.5-1.04 L CALCIUM (test code = 1906362575) 9.2 mg/dL 8.6-10.6 eGFR Calculation (Non-) (test code = 6274139400) mL/min/1.73m2 eGFR Calculation () (test code = 4459236027) mL/min/1.73m2 DARWIN (test code = DARWIN) Association [...] imaging tests). Lab Interpretation (test code = 00914-0) Abnormal [facility] (ALB, T.PRO, BILI T, BU/BC, ALT, AST, ALK PHOS)2020-08-11 02:13:00* Test Item Value Reference Range Interpretation Comme nts TOTAL BILI (test code = 9446148017) 0.4 mg/dL 0.1-1.1 BILI UNCON (test code = 1944317910) 0.3 mg/dL 0.1-1.1 BILI CONJ (test code = 2357585521) 0.0 mg/dL 0-0.3 T PROTEIN (test code = 7996063285) 7.5 g/dL 6.3-8.2 ALBUMIN (test code = 9029017715) 4.4 g/dL 3.5-5 ALK PHOS (test code = 7707926800) 48 U/L 34-122 ALTv (test code = 1742-6) 12 U/L 5-35 AST(SGOT) (test code = 2256746480) 22 U/L 13-40 Lab Interpretation (test cod e = 12205-6) Normal [facility] System[facility] Pcwix2626-05-03 02:13:00* Test Item Value Reference Range Interpretation Comme nts LIPASE (test code = 8588402164) 78 U/L 0-220 Lab Interpretation (test cod e = 30586-6) Normal [facility] SystemL[facility] Acid Whole Wbshl5493-09-02 02:05:00* Test Item Value Reference Range Interpretation Comme nts LACTIC ACID (test code = 2159927368) 1.47 mmol/L 0.5-2.2 Lab Interpretation (test cod e = 52557-2) Normal [facility] FOREARM 2 VW [id number] 14:31:40No acute bony abnormality. Soft tissue swelling. [...] reviewed this study and agree with the abovereport.[facility] (ID NOW RAPID TESTING)2020-08-07 14:18:00* Test Item Value Reference Range Interpretation Comme nts SARS-CoV-2 Rapid ID NOW (test code = 97434-4) Not Detected Not Detected DARWIN (test code = DARWIN) ID NOW COVID-19 As say is an isothermal nucleic acid amplification test intended for the qualitative detection of nucleic acid from SARS-CoV-2 viral RNA in nasopharyngeal (CHALK TESTER) specimens. It is used under Emergency Use [...] clinically indicated. Lab Interpretation (test code = 34103-7) Normal [facility] SystemTROPONIN [id number] 02:54:00* Test Item Value Reference Range Interpretation Comme nts TROPONIN I (test code = 4702372377) <0.012 See_Comment [Automated message] The system which [...] biotin. ? Lab Interpretation (test code = 59727-2) Normal [facility]2020-12-25 02:37:00* Test Item Value Reference Range Interpretation Comme nts LIPASE (test code = 2132623349) 76 U/L 0-220 Lab Interpretation (test cod e = 99291-4) Normal [facility] System[facility]INALYSIS2020-12-25 01:54:00* Test Item Value Reference Range Interpretation Comme nts APPEARANCE (test code = 2768588338) Clear Clear COLOR (test code = 6618436854) Straw Yellow A PH (test code = 6885152610) 4.8-8.0 SP GRAVITY (test code = 8176432337) 1.003-1.030 GLU U QUAL (test code = 2603753273) Normal Normal BLOOD (test code = 2700525001) 3+ Negative A KETONES (test code = 3297690017) Negative Negative PROTEIN (test code = 2887-8) Negative Negative UROBILIN (test code = 6816187365) Normal Normal BILIRUBIN (test code = 6682633915) Negative Negative NITRITE (test code = 9149661982) Negative Negative LEUK MARC (test code = 1700343744) Negative Negative RBC/HPF (test code = 2028777685) See_Comment [Automated messa ge] The system which generated this result transmitted reference range: 0 - 3 HPF. The reference range was not used to interpret this result as normal/abnormal. WBC/HPF (test code = 5232467602) <1 See_Comment [Automated messa ge] The system which generated this result transmitted reference range: 0 - 5 HPF. The reference range was not used to interpret this result as normal/abnormal. BACTERIA (test code = 3605345412) Few Negative A MUCOUS (test code = 6040929834) Slight Negative LPF A SQ EPITH (test code = 1998157124) HPF Lab Interpretation (test code = 04204-7) Abnormal [facility] WITH [id number] 00:57:00* Test Item Value Reference Range Interpretation [...] 34.0 g/dL 31.6-35.1 RDW-SD (test code = 46487-3) 41.7 fL 39-49.9 RDW-CV (test code = 788-0) 13.2 % 12-15.5 PLT (test code = 777-3) See_Comment [Automated messa ge] The system which generated this result transmitted reference range: 166 - 358 10*3/?L. The reference range was not used to interpret this result as normal/abnormal. MPV (test code = 68354-6) 9.4 fL 9.5-12.9 L NRBC/100 WBC (test code = 0314000098) See_Comment [Automated me ssage] The system which generated this result transmitted reference range: 0.0 - 10.0 /100 WBCs. The reference range was not used to interpret this result as normal/abnormal. NRBC x10^3 (test code = 2961467927) <0.01 See_Comment [Automated messa ge] The system which generated this result transmitted reference range: 10*3/?L. The reference range was not used to interpret this result as normal/abnormal. GRAN MAT (NEUT) % (test code = 770-8) 51.8 % IMM GRAN % (test code = 2684603102) 0.50 % LYMPH % (test code = 736-9) 40.7 % MONO % (test code = 5905-5) 4.0 % EOS % (test code = 713-8) 2.5 % BASO % (test code = 706-2) 0.5 % GRAN MAT x10^3(ANC) (test code = 8240082263) 5.38 10*3/uL 1.88-7.09 IMM GRAN x10^3 (test code = 4216303928) 0.05 10*3/uL 0-0.06 LYMPH x10^3 (test code = 731-0) 4.22 10*3/uL 1.32-3.29 H MONO x10^3 (test code = 742-7) 0.42 10*3/uL 0.33-0.92 EOS x10^3 (test code = 711-2) 0.26 10*3/uL 0.03-0.39 BASO x10^3 (test code = 704-7) 0.05 10*3/uL 0.01-0.07 Lab Interpretation (test code = 06896-6) Abnormal [facility] ONLY - INFLUENZA A & B DIRECT [id number] 00:51:00* Test Item Value Reference Range Interpretation Comme nts Influenza A (test code = 33935-9) Negative Negative Influenza B (test code = 21836-7) Negative Negative Lab Interpretation (test cod e = 56221-7) Normal [facility] System[facility] [id number] 00:51:00* Test Item Value Reference Range Interpretation Comme nts POCT PREG (test code = 1605) negative On board controls acceptable with C Line (test code = 3574) present POCT PREG LOT # (test code = 3575) [id number] POCT PREG TEST DATE ( test code = 3576) 11/04/2021 Lab Interpretation (test cod e = 83929-4) Normal [facility] SystemTROPONIN W0653-20-03 00:46:00* Test Item Value Reference Range Interpretation Comme nts TROPONIN I (test code = 9794604786) <0.012 See_Comment [Automated message] The system which [...] biotin. ? Lab Interpretation (test code = 59873-6) [facility] (NA, K, CL, CO2, GLUCOSE, BUN, CREATININE, CA)2020-07-01 00:46:00* Test Item Value Reference Range Interpretation Comme nts NA (test code = 1001247300) 141 mmol/L 135-145 K (test code = 3249549517) 3.8 mmol/L 3.5-5 CL (test code = 1324747440) 108 mmol/L 98-108 CO2 TOTAL (test code = 5969184025) 25 mmol/L 23-31 AGAP (test code = 1656089609) 2-16 BUN (test code = 6811727260) 10 mg/dL 7-23 GLUCOSE (test code = 6779052178) 92 mg/dL 70-110 CREATININE (test code = 5990295710) 0.58 mg/dL 0.5-1.04 CALCIUM (test code = 4215103212) 9.4 mg/dL 8.6-10.6 eGFR Calculation (Non-) (test code = 0699154805) mL/min/1.73m2 eGFR Calculation () (test code = 9587467055) mL/min/1.73m2 DARWIN (test code = DARWIN) Association [...] or urine or abnormalities in imaging tests). [facility] SystemN-TERMINAL VLS-LJA5694-93-25 00:43:00* Test Item Value Reference Range Interpretation Comme nts NT-proBNP (test code = 5951530027) 332 pg/mL See_Comment H [Automated message] The system which generated this result transmitted reference range: <=125. The reference range was not used to interpret this result as normal/abnormal. DARWIN (test code = DARWIN) Biotin has been reported to cause a negative bias, interpret results relative to patient's use of biotin. Lab Interpretation (test code = 87561-7) Abnormal [facility] System[facility] CHEST 1 [id number] 00:20:50No acute cardiopulmonary abnormality Preliminary Report Dictated [...] reviewed this study and agree with the abovereport.[facility] SystemCT CERVICAL SPINE WO [id number] 23:23:[address] EXAMINATION: CT [...] lung apices are unremarkable. IMPRESSIONUnremarkable cervical spine CT.[facility] SystemPOCT Iunl5540-93-31 01:50:00* Test Item Value Reference Range Interpretation Comme nts POCT PREG (test code = 1605) Negative On board controls acceptable with C Line (test code = 3574) Present POCT PREG LOT # (test code = 3575) [id number] POCT PREG TEST DATE ( test code = 3576) 10/05/2021 Lab Interpretation (test cod e = 74454-8) Normal [facility] SystemTroponin [id number] 01:24:00* Test Item Value Reference Range Interpretation Comme [facility] TROPONIN I (test code = 6036168371) <0.012 See_Comment [Automated message] The system which [...] biotin. ? Lab Interpretation (test code = 45705-8) Normal [facility] (ID NOW RAPID TESTING)2020-06-13 01:22:00* Test Item Value Reference Range Interpretation Comme nts SARS-CoV-2 Rapid ID NOW (test code = 45852-4) Not Detected Not Detected DARWIN (test code = DARWIN) ID NOW COVID-19 As say is an isothermal nucleic acid amplification test intended for the qualitative detection of nucleic acid from SARS-CoV-2 viral RNA in nasopharyngeal (CHALK TESTER) specimens. It is used under Emergency Use [...] clinically indicated. Lab Interpretation (test code = 95250-6) Normal [facility] SystemD-HUJJI7653-77-84 01:16:00* Test Item Value Reference Range Interpretation Comments D-DIMER (test code = 7519732567) See_Comment [Automated message] The system which generated [...] a diagnosis. Lab Interpretation (test code = 76185-0) [facility] (NA, K, CL, CO2, GLUCOSE, BUN, CREATININE, CA)2020-06-13 01:13:00* Test Item Value Reference Range Interpretation Comme nts NA (test code = 0510990307) 137 mmol/L 135-145 K (test code = 4133206651) 4.2 mmol/L 3.5-5 CL (test code = 1062624906) 103 mmol/L 98-108 CO2 TOTAL (test code = 3111388011) 25 mmol/L 23-31 AGAP (test code = 8991848893) 2-16 BUN (test code = 6710289915) 11 mg/dL 7-23 GLUCOSE (test code = 0387459030) 98 mg/dL 70-110 CREATININE (test code = 0080591527) 0.52 mg/dL 0.5-1.04 CALCIUM (test code = 0219826424) 10.3 mg/dL 8.6-10.6 eGFR Calculation (Non-) (test code = 6944234539) mL/min/1.73m2 eGFR Calculation () (test code = 1118004026) mL/min/1.73m2 DARWIN (test code = DARWIN) Association [...] or urine or abnormalities in imaging tests). [facility] SystemHepatic Function Panel (ALB, T.PRO, BILI T, BU/BC, ALT, AST, ALK PHOS)2020-06-13 01:13:00* Test Item Value Reference Range Interpretation Comme nts TOTAL BILI (test code = 2798132832) 0.5 mg/dL 0.1-1.1 BILI UNCON (test code = 6791104561) 0.3 mg/dL 0.1-1.1 BILI CONJ (test code = 3654222697) 0.0 mg/dL 0-0.3 T PROTEIN (test code = 5968441096) 7.3 g/dL 6.3-8.2 ALBUMIN (test code = 2679697249) 4.2 g/dL 3.5-5 ALK PHOS (test code = 3089367780) 85 U/L 34-122 ALTv (test code = 1742-6) 66 U/L 5-35 H AST(SGOT) (test code = 8934537564) 32 U/L 13-40 Lab Interpretation (test cod e = 54576-4) Abnormal [facility] SystemLipase Oqjkk7403-43-66 01:13:00* Test Item Value Reference Range Interpretation Comme nts LIPASE (test code = 4415721113) 60 U/L 0-220 Lab Interpretation (test cod e = 03385-6) Normal [facility] SystemUrinalysis2020-12-07 01:03:00* Test Item Value Reference Range Interpretation Comme nts APPEARANCE (test code = 2278762881) Clear Clear COLOR (test code = 6813011496) Straw Yellow A PH (test code = 3190083762) 4.8-8.0 SP GRAVITY (test code = 6003184106) 1.003-1.030 GLU U QUAL (test code = 7119036985) Normal Normal BLOOD (test code = 9654649338) Negative Negative KETONES (test code = 7240600549) Negative Negative PROTEIN (test code = 2887-8) Negative Negative UROBILIN (test code = 7485489360) Normal Normal BILIRUBIN (test code = 4543793316) Negative Negative NITRITE (test code = 5603589640) Negative Negative LEUK MARC (test code = 8289474952) Negative Negative RBC/HPF (test code = 0367419379) See_Comment [Automated messa ge] The system which generated this result transmitted reference range: 0 - 3 HPF. The reference range was not used to interpret this result as normal/abnormal. WBC/HPF (test code = 5584080195) See_Comment [Automated messa ge] The system which generated this result transmitted reference range: 0 - 5 HPF. The reference range was not used to interpret this result as normal/abnormal. BACTERIA (test code = 8652382041) Negative Negative MUCOUS (test code = 6327733742) Slight Negative LPF A SQ EPITH (test code = 4918345981) HPF Lab Interpretation (test code = 86078-4) Abnormal [facility] SystemCBC with Ixvapgonnruo1585-55-45 00:55:00* Test Item Value Reference Range Interpretation [...] 34.5 g/dL 31.6-35.1 RDW-SD (test code = 62042-9) 42.5 fL 39-49.9 RDW-CV (test code = 788-0) 13.5 % 12-15.5 PLT (test code = 777-3) See_Comment [Automated [employer]] The system which generated this result transmitted reference range: 166 - 358 10*3/?L. The reference range was not used to interpret this result as normal/abnormal. MPV (test code = 47854-2) 10.1 fL 9.5-12.9 NRBC/100 WBC (test code = 1087480870) See_Comment [Automated [employer] ssage] The system which generated this result transmitted reference range: 0.0 - 10.0 /100 WBCs. The reference range was not used to interpret this result as normal/abnormal. NRBC x10^3 (test code = 2526357643) <0.01 See_Comment [Automated [employer]] The system which generated this result transmitted reference range: 10*3/?L. The reference range was not used to interpret this result as normal/abnormal. GRAN MAT (NEUT) % (test code = 770-8) 61.9 % IMM GRAN % (test code = 3560541063) 0.60 % LYMPH % (test code = 736-9) 30.6 % MONO % (test code = 5905-5) 5.2 % EOS % (test code = 713-8) 1.4 % BASO % (test code = 706-2) 0.3 % GRAN MAT x10^3(ANC) (test code = 1480751031) 8.03 10*3/uL 1.88-7.09 H IMM GRAN x10^3 (test code = 8607557011) 0.08 10*3/uL 0-0.06 H LYMPH x10^3 (test code = 731-0) 3.97 10*3/uL 1.32-3.29 H MONO x10^3 (test code = 742-7) 0.68 10*3/uL 0.33-0.92 EOS x10^3 (test code = 711-2) 0.18 10*3/uL 0.03-0.39 BASO x10^3 (test code = 704-7) 0.04 10*3/uL 0.01-0.07 Lab Interpretation (test code = 10699-5) Abnormal [facility] SystemC[facility] (ID NOW RAPID TESTING)2020-05-17 00:27:00* Test Item Value Reference Range Interpretation Comme nts SARS-CoV-2 Rapid ID NOW (test code = 81238-6) Not Detected Not Detected DARWIN (test code = DARWIN) ID NOW COVID-19 As say is an isothermal nucleic acid amplification test intended for the qualitative detection of nucleic acid from SARS-CoV-2 viral RNA in nasopharyngeal (CHALK TESTER) specimens. It is used under Emergency Use [...] clinically indicated. Lab Interpretation (test code = 60153-5) Normal [facility] (NA, K, CL, CO2, GLUCOSE, BUN, CREATININE, CA)2020-05-17 00:00:00* Test Item Value Reference Range Interpretation Comme nts NA (test code = 0446213753) 136 mmol/L 135-145 K (test code = 5788561364) 3.6 mmol/L 3.5-5 CL (test code = 3752961201) 103 mmol/L 98-108 CO2 TOTAL (test code = 0787086658) 26 mmol/L 23-31 AGAP (test code = 3661969035) 2-16 BUN (test code = 9894952990) 13 mg/dL 7-23 GLUCOSE (test code = 8607450138) 130 mg/dL 70-110 H CREATININE (test code = 9633996891) 0.58 mg/dL 0.5-1.04 CALCIUM (test code = 5826767919) 9.9 mg/dL 8.6-10.6 eGFR Calculation (Non-) (test code = 9465548338) mL/min/1.73m2 eGFR Calculation () (test code = 1246860736) mL/min/1.73m2 DARWIN (test code = DARWIN) Association [...] imaging tests). Lab Interpretation (test code = 93627-1) Abnormal [facility] (ALB, T.PRO, BILI T, BU/BC, ALT, AST, ALK PHOS)2020-05-17 00:00:00* Test Item Value Reference Range Interpretation Comme nts TOTAL BILI (test code = 4503563877) 0.4 mg/dL 0.1-1.1 BILI UNCON (test code = 1747423933) 0.3 mg/dL 0.1-1.1 BILI CONJ (test code = 7116300725) 0.0 mg/dL 0-0.3 T PROTEIN (test code = 0360385755) 7.3 g/dL 6.3-8.2 ALBUMIN (test code = 3620688522) 4.3 g/dL 3.5-5 ALK PHOS (test code = 4060821064) 118 U/L 34-122 ALTv (test code = 1742-6) 119 U/L 5-35 H AST(SGOT) (test code = 0090297323) 47 U/L 13-40 H Lab Interpretation (test cod e = 65020-5) Abnormal [facility] System[facility] Uujpb1741-22-93 00:00:00* Test Item Value Reference Range Interpretation Comme nts LIPASE (test code = 7343253898) 70 U/L 0-220 Lab Interpretation (test cod e = 14114-0) Normal [facility] System[facility] with Jyxlpludedko8557-21-63 23:49:00* Test Item Value Reference Range Interpretation Comme nts WBC (test code = 6690-2) See_Comment [Automated [employer]] The system which generated this result transmitted reference range: 4.30 - 11.10 10*3/?L. The reference range was not used to interpret this result as normal/abnormal. RBC (test code = 789-8) See_Comment [Automated [employer]] The system which generated this result transmitted [...] 33.3 g/dL 31.6-35.1 RDW-SD (test code = 73306-9) 42.8 fL 39-49.9 RDW-CV (test code = 788-0) 13.5 % 12-15.5 PLT (test code = 777-3) See_Comment [Automated messa ge] The system which generated this result transmitted reference range: 166 - 358 10*3/?L. The reference range was not used to interpret this result as normal/abnormal. MPV (test code = 81452-9) 9.8 fL 9.5-12.9 NRBC/100 WBC (test code = 5975382469) See_Comment [Automated me ssage] The system which generated this result transmitted reference range: 0.0 - 10.0 /100 WBCs. The reference range was not used to interpret this result as normal/abnormal. NRBC x10^3 (test code = 5569361096) <0.01 See_Comment [Automated me ssage] The system which generated this result transmitted reference range: 10*3/?L. The reference range was not used to interpret this result as normal/abnormal. GRAN MAT (NEUT) % (test code = 770-8) 62.5 % IMM GRAN % (test code = 9827008865) 0.50 % LYMPH % (test code = 736-9) 29.8 % MONO % (test code = 5905-5) 5.6 % EOS % (test code = 713-8) 1.1 % BASO % (test code = 706-2) 0.5 % GRAN MAT x10^3(ANC) (test code = 3104976856) 6.65 10*3/uL 1.88-7.09 IMM GRAN x10^3 (test code = 5891552775) 0.05 10*3/uL 0-0.06 LYMPH x10^3 (test code = 731-0) 3.17 10*3/uL 1.32-3.29 MONO x10^3 (test code = 742-7) 0.59 10*3/uL 0.33-0.92 EOS x10^3 (test code = 711-2) 0.12 10*3/uL 0.03-0.39 BASO x10^3 (test code = 704-7) 0.05 10*3/uL 0.01-0.07 [facility] SystemACETAMINOPHEN2020-11-08 08:24:00* Test Item Value Reference Range Interpretation Comme nts ACETAMINOP (test code = 7485669731) 21.0 ug/mL 10-30 DARWIN (test code = DARWIN) Toxic: Greater joan n 200 ug/mL @ 4 hour post ingestion or greater than 50 ug/mL @ 12 hour post ingestion Lab Interpretation (test code = 64216-0) Normal [facility] SystemETHANOL2020-11-08 06:37:00* Test Item Value Reference Range Interpretation Comme nts ALCOHOL (test code = 3515301795) <10 mg/dL DARWIN (test code = DARWIN) <10 Wqynbkme29-759 Toxic>100 Depression of DIRECTOR OF SALES>400 Fatalities Reported [facility] Panel (NA, K, CL, CO2, GLUCOSE, BUN, CREATININE, CA)2020-05-15 06:35:00* Test Item Value Reference Range Interpretation Comme nts NA (test code = 3972458752) 137 mmol/L 135-145 K (test code = 1346326432) 4.0 mmol/L 3.5-5 CL (test code = 5099324665) 106 mmol/L 98-108 CO2 TOTAL (test code = 3699996079) 25 mmol/L 23-31 AGAP (test code = 6109086255) 2-16 BUN (test code = 8211013050) 9 mg/dL 7-23 GLUCOSE (test code = 3845487979) 95 mg/dL 70-110 CREATININE (test code = 8021173348) 0.53 mg/dL 0.5-1.04 CALCIUM (test code = 3119683046) 9.0 mg/dL 8.6-10.6 eGFR Calculation (Non-) (test code = 9883258137) mL/min/1.73m2 eGFR Calculation () (test code = 1218158962) mL/min/1.73m2 DARWIN (test code = DARWIN) Association [...] or urine or abnormalities in imaging tests). [facility] (ALB, T.PRO, BILI T, BU/BC, ALT, AST, ALK PHOS)2020-05-15 06:35:00* Test Item Value Reference Range Interpretation Comme nts TOTAL BILI (test code = 8322081472) 0.4 mg/dL 0.1-1.1 BILI UNCON (test code = 9206739047) 0.2 mg/dL 0.1-1.1 BILI CONJ (test code = 3008851352) 0.0 mg/dL 0-0.3 T PROTEIN (test code = 3541660680) 6.3 g/dL 6.3-8.2 ALBUMIN (test code = 8431643769) 3.8 g/dL 3.5-5 ALK PHOS (test code = 2622061055) 117 U/L 34-122 ALTv (test code = 1742-6) 179 U/L 5-35 H AST(SGOT) (test code = 5376586364) 194 U/L 13-40 H Lab Interpretation (test cod e = 07357-6) Abnormal [facility] System[facility]ase Oswsp7632-32-77 06:35:00* Test Item Value Reference Range Interpretation Comme nts LIPASE (test code = 2862985098) 92 U/L 0-220 Lab Interpretation (test cod e = 71884-6) Normal [facility] SystemaPTT2020-11-08 06:22:00* Test Item Value Reference Range Interpretation Comme nts APTT Patient (test code = 3173-2) See_Comment [Automated message] The system which generated this result transmitted reference range: 23 - 38 Seconds. The reference range was not used to interpret this result as normal/abnormal. DARWIN (test code = DARWIN) The [facility] patient population mean normal value for aPTT is 30 seconds. Lab Interpretation (test code = 77700-0) Normal [facility] SystemUrinalysis2020-11-08 06:21:00* Test Item Value Reference Range Interpretation Comme nts APPEARANCE (test code = 4855183038) Clear Clear COLOR (test code = 1526711672) Yellow Yellow PH (test code = 5158820755) 4.8-8.0 SP GRAVITY (test code = 5604388383) 1.003-1.030 GLU U QUAL (test code = 6567840539) Normal Normal BLOOD (test code = 0849759649) Negative Negative KETONES (test code = 8680694461) Negative Negative PROTEIN (test code = 2887-8) Negative Negative UROBILIN (test code = 4277403008) Normal Normal BILIRUBIN (test code = 2997646282) Negative Negative NITRITE (test code = 3725129670) Negative Negative LEUK MARC (test code = 3527794847) Negative Negative RBC/HPF (test code = 6485807472) See_Comment [Automated [employer]] The system which generated this result transmitted reference range: 0 - 3 HPF. The reference range was not used to interpret this result as normal/abnormal. WBC/HPF (test code = 0484560778) <1 See_Comment [Automated [employer]] The system which generated this result transmitted reference range: 0 - 5 HPF. The reference range was not used to interpret this result as normal/abnormal. BACTERIA (test code = 3580750805) Negative Negative MUCOUS (test code = 3158635146) Slight Negative LPF A SQ EPITH (test code = 5011800928) HPF Lab Interpretation (test code = 59478-2) Abnormal [facility] SystemProthrombin Time (PT) / FHD2609-57-52 06:20:00 * Test Item Value Reference Range [...] the indications. Lab Interpretation (test code = 00055-6) Normal [facility] System[facility] / C - DRUG SCREEN WEMIQP4048-14-47 06:19:00* Test Item Value Reference Range Interpretation Comme nts BENZO U (test code = 8224634311) Presumptive Positive Negative A ROSA U (test code = 2563444960) Negative Negative AMPHET (test code = 1844633508) Negative Negative THC (test code = 4085587087) Negative Negative METHADONE (test code = 8508633669) Negative Negative Meth U (test code = 2674675715) Negative Negative OPIATES (test code = 5694898573) Negative Negative Cocaine Metabolite (test code = 4683606420) Negative Negative PROPOXY (test code = 8898546386) Negative Negative Tric U (test code = 1079033915) Negative Negative PCP (test code = 1487138712) Negative Negative OXYCOD (test code = 2185806102) Negative Negative DARWIN (test code = DARWIN) [...] legal testing). Lab Interpretation (test code = 48494-6) Abnormal [facility] with Qndsxsghagoy0752-62-06 06:07:00* Test Item Value Reference Range Interpretation [...] 34.3 g/dL 31.6-35.1 RDW-SD (test code = 27351-2) 43.4 fL 39-49.9 RDW-CV (test code = 788-0) 13.7 % 12-15.5 PLT (test code = 777-3) See_Comment [Automated messa ge] The system which generated this result transmitted reference range: 166 - 358 10*3/?L. The reference range was not used to interpret this result as normal/abnormal. MPV (test code = 96467-3) 9.7 fL 9.5-12.9 NRBC/100 WBC (test code = 9842354096) See_Comment [Automated [employer] ssage] The system which generated this result transmitted reference range: 0.0 - 10.0 /100 WBCs. The reference range was not used to interpret this result as normal/abnormal. NRBC x10^3 (test code = 0084397516) <0.01 See_Comment [Automated messa ge] The system which generated this result transmitted reference range: 10*3/?L. The reference range was not used to interpret this result as normal/abnormal. GRAN MAT (NEUT) % (test code = 770-8) 50.6 % IMM GRAN % (test code = 6940664345) 0.20 % LYMPH % (test code = 736-9) 42.1 % MONO % (test code = 5905-5) 5.5 % EOS % (test code = 713-8) 1.2 % BASO % (test code = 706-2) 0.4 % GRAN MAT x10^3(ANC) (test code = 4535492372) 4.31 10*3/uL 1.88-7.09 IMM GRAN x10^3 (test code = 9255253580) <0.03 0-0.06 LYMPH x10^3 (test code = 731-0) 3.58 10*3/uL 1.32-3.29 H MONO x10^3 (test code = 742-7) 0.47 10*3/uL 0.33-0.92 EOS x10^3 (test code = 711-2) 0.10 10*3/uL 0.03-0.39 BASO x10^3 (test code = 704-7) 0.03 10*3/uL 0.01-0.07 Lab Interpretation (test code = 27750-0) Abnormal [facility] SystemPOCT Fxfx3398-63-57 05:53:00* Test Item Value Reference Range Interpretation Comme nts POCT PREG (test code = 1605) Negative On board controls acceptable with C Line (test code = 3574) Present POCT PREG LOT # (test code = 3575) HCG [id number] POCT PREG TEST DATE ( test code = 3576) 10/05/2021 Lab Interpretation (test cod e = 73272-7) Normal [facility] History and Physical Notes Date/Time Note Provider Source 2023-02-16 01:18:50 0986-44-48I01:18:50F ormatting of this note is different from [...] Mercado MD, Last Rate: 100 mL/hr at 02/15/237, 1,000 mL at 02/15/23 224 morpHINE (2 mg/mL) injection 2 mg, 2 mg, Slow IV Push, Q4HPRN, Flako Mercado MD, 2 mg at 02/15/23 2240 traMADoL (ULTRAM) tablet 50 mg, 50 mg, Oral, Q8HPRN, Flako Mercado MDObjective:Vitals:Vitals: 02/15/23 1911 02/15/23200802/15/23201502/15/232018 BP: 105/67 122/70 Pulse: 72 66 Resp: 18 Temp: 36.1 ?C (96.9 ?F) TempSrc: [...] relevant labsImaging:CT ABDOMEN PELVIS W CONTRASTResult Date: 3CT ABDOMEN PELVIS W CONTRAST Indication: Pancreatitis, acute, severe Comparison: September 11, 2021 RL: 21870 Ordering Clinician: LEEANNE WISE Technique: Axial CT [...] the ACR Incidental Findings Committee;Journal of the [employer] Volume 7, Issue 10, Pages 387-370, April 2010). XR CHEST 1 VWResult Date: [...] process is identified in the chest. RL: 8768 END OF REPORT Assessment and plan:Principal Problem: [...] minutesDisposition: admit to inpt Signed:Flako Mercado MD02/16/2023 87033-8Loayjok and physical aybvPW7517-01-63V84:24:58History and physical noteTXT1.2.840.175811.1.13.104.2 .7.2.294155|[id number] e for patient zkbh96530-4Uyhwmgc and physical noteLNIM-INTERNAL MEDICINE STAFF-INTERNAL MEDICINE STAFF[address] CiweFdrcnqkwdBuallkouaFHNS647537 6696GGPETJXTJZOIXPPMNNFINH9850-7 02-16T01:24:581.2.840.505992.1.72 .3.15|1.2.840.156277.1.13.104.2. 7.2.727879_[id number] IM-INTERNAL MEDICINE STAFF [facility] Notes Date/Time Note Provider Source 2023-12-13 09:19:27 5221-58-25V57:19:27 [facility]Patient [facility]23 for chest pains. She had a stent placed [place] [address]-3Aomaq PzdgBW8424-31-97T50:19:46Nurse NoteTXT1.2.840.151471.1.13.131.2.7. 2.122279|[id number] for patient bmgz72956-2Qvzns NoteLNNARRATIVEFormatted C-CDA narrative rwpw926612641Qqnbg Hurst [facility] [facility] at ParkwayTXTX7702577025US GP5309-99-10I90:19:461.2.840.573190 .1.72.3.15|1.2.840.243981.1.13.131. 2.7.2.727879_[id number] Jennifer Del Castillo MA, II [facility] 2023-12-03 10:49:31 4695-78-80S90:49:31 Chief ComplaintPatient presents withAnxietyFollow up on anxiety/depression. She states that it has gotten worse since last visit. She had an appointment with [facility] this morning and it was canceled due to [place] [address]-9Bnhgb AttxOL9727-21-54T58:49:48Nurse NoteTXT1.2.840.460435.1.13.131.2.7. 2.381888|[id number] for patient nxts46894-7Hfgjc NoteLNNARRATIVEFormatted C-CDA narrative [id number] Hurst MA [facility] [facility].TQRGSNZSEAOIITIPVM7859168712OX BF2892-46-95D61:49:481.2.840.874852 .1.72.3.15|1.2.840.408598.1.13.131. 2.7.2.727879_[id number] Jennifer Del Castillo MA, II [facility] 2023-10-29 13:21:02 8379-16-02Y69:21:02 [facility]Patient [facility] to a different doctor because they could not give her anything elseJAVON KhanN 38711-6Bkose RgyeLK9857-58-95Z58:21:18Nurse NoteTXT1.2.840.862268.1.13.131.2.7. 2.209227|[id number] for patient rfvr04114-7Dqdpi NoteLNNARRATIVEFormatted C-CDA narrative textHospital Sisters Health [facility] [place] [address].PCAQNWXPOCYGRWENSH5895811773RR TH0139-36-00M43:21:181.2.840.042843 .1.72.3.15|1.2.840.505806.1.13.131. 2.7.2.727879_[id number] [facility] 2023-10-11 00:41:45 5108-07-49F66:41:45 Pt given printed and verbal discharge instructions [...] by parent, & in no apparent distress. 11054-8Mgwmgsqse department ZzkiAT4352-91-66Y65:43:03[facility] department NoteTXT1.2.840.152607.1.13.104.2.7. 2.545400|[id number] for patient ounn33591-7MamiIUVIWLHPSQUVwkqxpnta C-CDA narrative kelr506545377Bepalr L Williams RNUT[address] CupvRcaamwavkAdbmjrotyZPGV209616440 9HGCVAODMIOMZVXPBTHVQFH4732-07-01U3 0:43:031.2.840.945382.1.72.3.15|1.2 .840.704023.1.13.104.2.7.2.727879_2 [id number] Becky Rios RN [facility] 2023-10-10 21:25:46 7605-74-91G86:25:46 Pt arrived ambulatory but states feeling like she is going to pass out, Pt placed in ED wheelchair. Pt c/o " I have pain in my back on the left side, it mark when I pee, Im nauseous, I feel like Im going to pass out and I have been crapping on myself." 93984-3Lcalcfypp department Triage uxtoQG2591-40-56F59:27:38[facility] Triage noteTXT1.2.840.678324.1.13.104.2.7. 2.392346|[id number] for patient unpp68073-3Ildoodehg department NoteLNNARRATIVEFormatted C-CDA narrative [id number] E Demetrio RAMIREZ[id number] 7LWQBZBFFLSJDYXKVMFYLLL9298-16-11W8 1:27:381.2.840.014561.1.72.3.15|1.2 .840.422256.1.13.104.2.7.2.727879_2 [id number] Shaneka Acosta Demetrio RAMIREZ [facility] 2023-07-01 22:58:41 6245-04-83C32:58:41 Pt discharged with diagnosis of RUQ abd pain and chronic abd pain. Printed and verbal instructions reviewed with and given to pt. Prescriptions given x 2. Pt verbalized understanding of teaching, medications, and recommended follow-up. Denies questions or concerns at this time. Pt ambulatory at discharge. Appears in no apparent distress. No ataxia noted. 31818-5Mzereavop department LssdOD6018-36-96K16:59:30[facility] department NoteTXT1.2.840.525006.1.13.104.2.7. 2.552014|[id number] for patient dgis88413-7KerrGSQFHZSNYWNHymzoqoiq C-CDA narrative qajp649953398VpxsraAdeline Floyd RN[id number] 4OVNPUHJOVSABVWFRHATSSW2887-09-11R1 2:59:301.2.840.829119.1.72.3.15|1.2 .840.757333.1.13.104.2.7.2.727879_1 [id number] Adeline Floyd RN [facility] 2023-07-01 19:46:03 3105-54-63Z14:46:03 Pt states sharp pain to the RLQ that started today around noon, pt denies any urinary symptoms, vomiting X 2 52481-4Bnggzlwcl department Triage kfdhBM8358-22-33F60:47:04[facility] Triage noteTXT1.2.840.064998.1.13.104.2.7. 2.854695|[id number] for patient ujrs32535-8Cawjsqmnp department NoteLNNARRATIVEFormatted C-CDA narrative lapu185719248Gzatcd J Hoot RN[address] StreetJqxwQzhjaytrcUdwdllwdlRCIF410732628 6UKLOMIWKKBOLKWLHBUGVBK3320-03-08W8 9:47:041.2.840.149882.1.72.3.15|1.2 .840.521058.1.13.104.2.7.2.727879_1 [id number] Razia Yost RN [facility] 2023-03-10 00:14:00 9304-53-93V16:14:00 Awake, alert oriented X4, respiratory even and [...] ER noted upon dischargePt [facility] gait 46210-1Zkdawwfeu department EjrfJO9482-45-28Y31:01:17[facility] department NoteTXT1.2.840.854384.1.13.104.2.7. 2.801925|[id number] for patient hogz03692-1QsfiQQ201498371Ldxliq J Priyank RN[id number] 1KICSAQJDTFHFHVUXISWZFZ4250-76-05F6 1:01:171.2.840.567242.1.72.3.15|1.2 .840.243138.1.13.104.2.7.2.727879_1 [id number] Razia Shaw Priyank RN [facility] 2023-03-09 23:06:10 8196-89-00R89:06:10 Received report from Evy RAMIREZ, [facility]. 73877-0Axgdzpxrz department AggaEI3406-62-23U81:06:31[facility] NoteTXT1.2.840.887524.1.13.104.2.7. 2.730058|[id number] for patient hdbz52568-8TrkoQZ109490998Ewmcu A. Campbell RN[id number] 6AFATCKUXYDIIEMEUZXEQLM7198-48-84F6 3:06:311.2.840.391249.1.72.3.15|1.2 .840.222976.1.13.104.2.7.2.727879_1 [id number] Brandy Lou RN [facility] 2023-03-09 22:38:16 5357-46-87O24:38:[address] scan done. Patient states LQ abdominal pain now 01/14. 49624-6Vvrqtjkos department EaurKD3038-52-91F06:38:54[facility] NoteTXT1.2.840.999313.1.13.104.2.7. 2.625151|[id number] for patient tonk17765-7RxqaIA544184506Dvhtxjl M Owens RN[id number] 6MHJGQEPXGYNTZWPYDQFKBU9603-88-16Y7 2:38:541.2.840.954618.1.72.3.15|1.2 .840.893085.1.13.104.2.7.2.727879_1 [id number] Guanaco Caceres RN [facility] 2023-03-09 22:00:00 6489-63-88M89:00:00 POCT test negative. Patient states RLQ abdominal pain improved briefly with IV Morphine administration, then returned at 03/17. Dr Richards informed, and patient medicated as ordered with Fentanyl 75 mcg [place]. 67752-2Pdtbcafjj department CeucVX9447-63-35D89:09:19[facility] NoteTXT1.2.840.967708.1.13.104.2.7. 2.174801|[id number] for patient qies64847-3OhgjRLTUJJXXSO[id number] 9QGVGWSGMOWFRKLUIZXFWYV0804-68-25A8 2:09:191.2.840.885647.1.72.3.15|1.2 .840.684438.1.13.104.2.7.2.727879_1 [id number] [facility] 2023-03-09 21:00:00 6676-13-59C31:00:00 Medicated as per order with Zofran 4 mg slow IVP and Morphine 4 mg slow IVP for RLQ abdominal pain 03/17. 27128-5Parjeapav department CtdyEV9411-29-43B55:07:24[facility] department NoteTXT1.2.840.354334.1.13.104.2.7. 2.554354|[id number] for patient syjk62212-2TemgUYSYABVCKA[id number] 1WORBTRTYPEWBWDZROUKAGX3713-05-84F5 2:07:241.2.840.266263.1.72.3.15|1.2 .840.614348.1.13.104.2.7.2.727879_1 [id number] [facility] 2023-03-09 20:17:52 1448-17-60Q34:17:52 Pt arrived ambulatory with complaints of RLQ abd pain since yesterday. Pt reports N/V/D. Last took Tylenol at 3pm. Denies dysuria but reports frequency. Hx: Anxiety, Depression, PTSD, Pancreatitis 60029-7Sacjikasc department Triage rempVW5723-42-50A84:20:20[facility] department Triage noteTXT1.2.840.502306.1.13.104.2.7. 2.181501|[id number] for patient hbik82942-4Qgnwshboc department HftzOX087341039Phoruv D Roman RN[id number] 1EOQOWUUPEIUMNLOZDXJKZW2126-15-68Y2 0:20:201.2.840.195772.1.72.3.15|1.2 .840.781212.1.13.104.2.7.2.727879_1 [id number] Aline Lou RN [facility] 2023-03-02 01:30:22 9413-35-05S76:30:22 Discharged home ambulatory. Home instructions given. 04881-5Eznxznklk department OilfFJ6166-21-86I38:30:41[facility] NoteTXT1.2.840.765850.1.13.104.2.7. 2.029231|[id number] for patient lizd76621-7AhjmPT646134284Bvsqpt R Quimoyog RN[id number] 4TVFHMFJEHPOFDOWVFDMMUU7413-79-86P4 1:30:411.2.840.994995.1.72.3.15|1.2 .840.868777.1.13.104.2.7.2.727879_1 [id number] John Ventura RN [facility] 2023-03-01 19:32:44 5009-29-87V21:32:44 Pt CO of N/V, left lower back pain, painful urination and diarrhea since yesterday, states she was admitted last week for pancreatitis. Pt already promethazine tablets today with no relief. 54596-0Rtwjmvrfl department Triage xuvkZX9987-38-26T07:34:10[facility] Triage noteTXT1.2.840.530315.1.13.104.2.7. 2.179102|[id number] for patient onic57645-6Fbyrjaxib department [id number] R Moss RN[id number] 0LKETECJBYRWOHKVGGRHTOR9798-77-07P4 9:34:101.2.840.424248.1.72.3.15|1.2 .840.651873.1.13.104.2.7.2.727879_1 [id number] Jean Carlos Alegria RN [facility] - [facility] 2023-03-01 19:22:00 9233-62-78E06:22:00 [facility] Emergency Department NotePatient Name: Charity RocaDate of : 1980 43 year old femaleTreatment Room: AK3/QM3Uadkmbe Record Number: [id number] Care Physician: Carlos SolanoPatient Escorted by: Family [5]Mode of Arrival: Personal means [1]EMS Treatment Prior to ED 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 RL: 460 AFC: 68505 Lab Results:Lab Results CBC WITH DIFF - [...] POCT PREG TEST DATE COMP. METABOLIC PANEL (13763) NA 139 135 - 145 mmol/L K [...] CONTRAST CBC WITH DIFF COMP. METABOLIC PANEL (38508) LIPASE URINALYSIS POCT TEST Orders Placed This [...] Nausea, vomiting and diarrhea Procedures: ProceduresMDM:Medical Decision MakingCharity Roca is a 43 year old female [...] Follow-up:Electronically signed by: Olivia Garcia MD03/02/23 0122 98734-5Vvapsnreg Emergency department JsvmDT8610-65-47N19:22:19Physician Emergency department NoteTXT1.2.840.016424.1.13.104.2.7. 2.102041|[id number] for patient prbw89135-1Zpaqtvekc department Note[address] Ou[id number] 2PCBLWDZVCALKWDHNBVKYGT6161-76-56H0 1:22:191.2.840.566387.1.72.3.15|1.2 .840.701985.1.13.104.2.7.2.727879_1 [id number] [facility] 2023-02-18 02:22:03 3403-10-69I72:22:03 Pt given printed and verbal discharge instructions [...] from ED, leaving in no apparent distress, 52803-5Nmwywsbkf department OdzqZY5870-08-07W26:22:35[place] [facility] NoteTXT1.2.840.691709.1.13.104.2.7. 2.367445|[id number] for patient [id number] E Linkes RN[address]Rk[id number] 3KCFDOQJXCSISGMIGUNUSVO6766-04-54G1 2:22:351.2.840.139722.1.72.3.15|1.2 .840.232747.1.13.104.2.7.2.727879_1 [id number] Linda Ayala RN [facility] 2023-02-17 22:53:36 3388-74-46S14:53:36 Pt arrived ambulatory with complaints of vomiting [...] she thinks might be from her anxiety. 80789-5Coxiaravb department Triage ydvuPX4044-86-06A01:56:52[facility] Triage noteTXT1.2.840.576469.1.13.104.2.7. 2.226986|[id number] for patient qzdq19902-6Yktcclaez department [id number] D Roman RN[id number] 3QZLOILFLYNNZPOIGZVYGEV5656-50-96N8 2:56:521.2.840.085874.1.72.3.15|1.2 .840.367335.1.13.104.2.7.2.727879_1 [id number] Aline Lou RN [facility] 2023-02-17 15:59:15 9438-07-90J00:59:15 Problem: PainGoal: Control of pain at or [...] for dischargeGoal: Effective communicationOutcome: Adequate for discharge 10030-4Xttj of care vzpaCO4193-10-98E41:59:19Plan of care noteTXT1.2.840.709368.1.13.104.2.7. 2.498735|[id number] for patient [id number] Roye RN[id number] 7XOFOXHQHUJPUAXNGSZNTDV7583-55-11D2 5:59:191.2.840.324629.1.72.3.15|1.2 .840.347931.1.13.104.2.7.2.727879_1 [id number] Beata Lamar RN [facility] 2023-02-17 00:21:19 0748-17-42C97:21:19 Problem: PainGoal: Control of pain at or [...] as expectedGoal: Effective communicationOutcome: Progressing as expected 76287-6Rodt of care orqmBP2968-18-57Z20:21:23Plan of care noteTXT1.2.840.784429.1.13.104.2.7. 2.987534|[id number] for patient qvxu08741-3GbwcKQFSVPGLPZ[address][id number] 4PWRQKTRKFRHQSQABZANGAL8371-01-51T1 0:21:231.2.840.669310.1.72.3.15|1.2 .840.199631.1.13.104.2.7.2.727879_1 [id number] [facility] 2023-02-16 16:55:55 9107-57-71Z76:55:55 Problem: PainGoal: Control of pain at or [...] as expectedGoal: Effective communicationOutcome: Progressing as expected 17685-8Watx of care texlOC6969-95-67E65:55:58Plan of care noteTXT1.2.840.132075.1.13.104.2.7. 2.268705|[id number] for patient ovbm23132-8DxybROSOCOCIVO[id number] 5UNYVUTNBAUZDGNMMNXEEQW3590-33-83T7 6:55:581.2.840.655604.1.72.3.15|1.2 .840.546807.1.13.104.2.7.2.727879_1 [id number] [facility] 2023-02-16 03:35:03 9929-40-39G24:35:03 Problem: PainGoal: Control of pain at or [...] as expectedGoal: Effective communicationOutcome: Progressing as expected 52540-7Opxz [facility] smchIM6104-56-89B66:35:13Plan of care noteTXT1.2.840.785591.1.13.104.2.7. 2.138610|[id number] for patient yrvp34451-4BxnwMHIKZZYWAR[id number] 9WSBUUWZGAAPSYFFRJJHIGB2249-63-96V8 3:35:131.2.840.288128.1.72.3.15|1.2 .840.513023.1.13.104.2.7.2.727879_1 [id number] [facility] 2023-02-15 19:41:18 9543-05-35X70:41:18 Nurse Report Report given to JAMES Gatica. Chief complaint, assessment findings, infusion verify and orders reviewed. Plan of care discussed [place] [address]-8Rjdyuosex department MqqpHA6216-18-37T05:41:48[facility] NoteTXT1.2.840.179120.1.13.104.2.7. 2.640300|[id number] for patient [id number] M Felix RNUT[address] Bb[id number] 2ZKHTIYHWQOVYXRDQHPSDMN3316-63-04R5 9:41:481.2.840.497045.1.72.3.15|1.2 .840.138057.1.13.104.2.7.2.727879_1 [id number] Stacie Man RN [facility] 2023-02-15 13:40:01 2239-07-29C00:40:01 CC: patient presents to the ER with [...] amb without assistance. Appears in no distress. 46309-0Skiqvsrkk department Triage muiaRH3740-42-22Q87:41:27[facility] department Triage noteTXT1.2.840.685053.1.13.104.2.7. 2.994382|[id number] for patient gnpw76887-5Iqlgmlvtr department NoteLNUT[address] Rm[id number] 1QDUFWMTHQBBVYNYCCROCTM0970-61-49F5 3:41:271.2.840.324139.1.72.3.15|1.2 .840.348980.1.13.104.2.7.2.727879_1 [id number] [facility] 2023-02-15 13:23:00 9145-75-77A02:23:00Associated Order(s): EKG-12 Lead ROUTINE ONCEPre-Procedure Diagnose(s): Chest pain, unspecified typePost-Procedure Diagnose(s): Acute pancreatitis, unspecified complication status, unspecified pancreatitis type [facility] Emergency Department NotePatient Name: Charity RocaDate of : 1980 42 year old femaleTreatment Room: [address] Record Number: [id number] Care Physician: Carlos SolanoPatient Escorted by: Self [9]Mode of Arrival: Personal means [1]EMS 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 Judgment: Judgment normal. Radiology: reviewed by me CT ABDOMEN PELVIS W CONTRAST Final Result [...] the ACR Incidental Findings Committee;Journal of the [employer] Volume 7, Issue 10, Pages 879-756, April 2010). CHEST 1 VW Final Result [...] process is identified in the chest. RL: 2232 END OF REPORT Lab Results: reviewed by [...] 0.01 - 0.07 10*3/uL COMP. METABOLIC PANEL (43762) - Abnormal NA 138 135 - 145 [...] INTERPRETATION CBC WITH DIFF COMP. METABOLIC PANEL (25117) LIPASE Orders Placed This Encounter Medications ibuprofen [...] Eval:ED Events Date/Time Event User Comments 02/15/23 1345 Medical Screening Begins CANDI WISE -- 02/15/23 [...] ED Physician in the absence of a mandrel maker: yes Previous ECG: Previous ECG: UnavailableInterpretation: Interpretation: abnormal Rate: ECG rate: 92 ECG rate assessment: normal Rhythm: Rhythm: sinus rhythm Ectopy: Ectopy: none QRS: QRS axis: Normal QRS intervals: Normal QRS conduction: normal ST segments: ST segments: NormalT waves: T waves: normal Q waves: Abnormal Q-waves: not present Other findings: Other findings: poor R wave progression MDM:Medical Decision MakingRikafernanda Roca is a 42 year old female [...] this a planned re-admission?: No Treatment Team: [facility] [[id number]] Is this patient COVID positive or a patient under investigation (PUI)?: No Electronically signed by: Leeanne Wise, NP02/15/23 1911 ssociated attestation - Bushra Rios DO - 02/16/2023 7:30 AM CDT I was personally available for consultation in the Emergency Department during this encounter and patient evaluation by Leeanne Wise.56554-8Yfxndaqxp Emergency department [id number], Sandra J1.2.840.262166.1.13.104.2.7.2.8369 97UoxqvepuDbcwycZNC8741-52-88K07:30 :51Physician Emergency department NoteTXT1.2.840.978692.1.13.104.2.7. 2.956071|[id number] for patient lrqx70752-4Wjexoprbx department NoteLN[address] StreetVa[id number] 5CFBFTNBBVZXRTNBIDDALGW9889-91-32C4 7:30:511.2.840.349484.1.72.3.15|1.2 .840.511290.1.13.104.2.7.2.727879_1 [id number] [facility]
[2024-01-11 01:32] LABS: Absolute Basophils 0.1 K/uL (0-0.5); Absolute Eosinophils 0.5 K/uL (0-0.5); Absolute Lymphocytes (CBC) 2.6 K/uL (0.7-4.9); Absolute Monocytes 0.9 K/uL (0.1-1.3); Absolute Neutrophil 9.5 K/uL (1.8-8.0); Basophils % 0.6 % (0-1.3); Eosinophils % 3.6 % (0-4.4); Hematocrit 38.2 % (36.0-45.0); Hemoglobin 12.8 g/dL (12.0-15.0); Lymphocytes % 19.1 % (15.3-44.8); MCH 26.5 pg (27.0-35.0); MCHC 33.6 g/dL (32.0-36.0); MCV 78.8 fL (80-100); MPV 7.2 fL (7.6-11.3); Monocytes % 6.3 % (3.3-12.3); Neutrophils % 70.4 % (41.7-73.7); Nucleated Red Blood Cells % 0.1 % (0-0); Platelets 355 thou/uL (152-406); RBC Red Blood Cell Count 4.85 M/uL (3.86-4.86); Red Cell Distribution Width 17.5 % (12.1-15.2)
[2024-01-11] MEDS ORDERED: FAMOTIDINE 20 MG/2 ML VIAL IV ONE (01:38)
[2024-01-11 01:40] LABS: PT Prothrombin Time 11.6 SECONDS (9.4-12.5); Protime INR 1.06
[2024-01-11] MEDS ORDERED: ONDANSETRON 4 MG/2 ML VIAL ONE (01:43)
[2024-01-11] MEDS ORDERED: MORPHINE 4 MG/ML SYR ONE (01:44)
[2024-01-11 02:07] LABS: ALT/SGPT 22 U/L (13-56); AST/SGOT 12 U/L (15-37); Albumin 3.2 g/dL (3.4-5.0); Albumin/Globulin Ratio 0.9 (1.1-1.8); Alkaline Phosphatase 80 U/L (45-117); Anion Gap 9.2 mEq/L (5.0-15.0); BUN Blood Urea Nitrogen 7 mg/dL (7-18); Bicarbonate 25 mEq/L (21-32); Globulin 3.7 g/dL (2.3-3.5); Glomerular Filtration Rate 110 ml/min (=/>90); Glucose Level 115 mg/dL (74-106); Lipase 39 U/L (13-75); Magnesium 1.7 mg/dL (1.6-2.4); NT PRO-BNP 18 pg/mL (<125); Potassium 3.2 mEq/L (3.5-5.1); Protein, Total 6.9 g/dL (6.4-8.2); Sodium Level 138 mEq/L (136-145)
[2024-01-11 02:15] LABS: Bilirubin Direct < 0.2 mg/dL (0-0.2); Bilirubin Total < 0.2 mg/dL (0.2-1.0); Troponin High Sensitivity < 3.0 pg/mL (<58.9)
[2024-01-11] MEDS ORDERED: MORPHINE 2 MG/ML SYR ONE ×4 (03:05→13:35)
[2024-01-11 03:16] LABS: Specific Gravity 1.005 (1.005-1.030); Urine Bilirubin NEGATIVE (Negative); Urine Blood Negative (Negative); Urine Clarity Clear (Clear); Urine Color Colorless (Yellow); Urine Glucose NEGATIVE (Negative); Urine Ketones NEGATIVE (Negative); Urine Microscopic Reflex YN NO UMIC; Urine Nitrite NEGATIVE (Negative); Urine Protein NEGATIVE (Negative); Urine Urobilinogen Normal (Normal)
--- NOTE | 2024-01-11 03:28 | EDPHYS ---
Physician Documentation [facility] Name: Charity Hanks Age: 43 yrs Sex: Female : 1980 Arrival Date: 01/11/2024 Time: 00:46 Bed 19 Private MD: ED Physician Mayank Butler HPI: 01/10 03:22 This 43 yrs old Female presents to ER via EMS with complaints of Chest Pain. madeleine 03:22 The patient or guardian reports chest pain that is located primarily in the substernal madeleine area. 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 - Infectious Disease History:: Denies. - Social history:: Smoking status: Patient reports the use of cigarette tobacco products, smokes one-half pack cigarettes per day. ROS: 03:23 Constitutional: Negative for fever, chills, and weight loss, Eyes: Negative for injury, madeleine pain, redness, and discharge, ENT: Negative for injury, pain, and discharge, Neck: Negative for injury, pain, and swelling, Respiratory: Negative for shortness of breath, cough, wheezing, and pleuritic chest pain, Abdomen/GI: Negative for abdominal pain, nausea, vomiting, diarrhea, and constipation, Back: Negative for injury and pain, : Negative for injury, bleeding, discharge, and swelling, MS/Extremity: Negative for injury and deformity, Skin: Negative for injury, rash, and discoloration, Neuro: Negative for headache, weakness, numbness, tingling, and seizure, Psych: Negative for depression, anxiety, suicide ideation, homicidal ideation, and hallucinations, Allergy/Immunology: Negative for hives, rash, and allergies, Endocrine: Negative for neck swelling, polydipsia, polyuria, polyphagia, and marked weight changes, Hematologic/Lymphatic: Negative for swollen nodes, abnormal bleeding, and unusual bruising, 03:23 Cardiovascular: Positive for chest pain, of the chest, 03:23 MS/extremity: Negative for acute changes, Exam: 03:23 Constitutional: This is a well developed, well nourished patient who is awake, alert, madeleine and in no acute distress. Head/Face: Normocephalic, atraumatic. Eyes: Pupils equal round and reactive to light, extra-ocular motions intact. Lids and lashes normal. Conjunctiva and sclera are non-icteric and not injected. Cornea within normal limits. Periorbital areas with no swelling, redness, or edema. ENT: Nares patent. No nasal discharge, no septal abnormalities noted. Tympanic membranes are normal and external auditory canals are clear. Oropharynx with no redness, swelling, or masses, exudates, or evidence of obstruction, uvula midline. Mucous membranes moist. Neck: Trachea midline, no thyromegaly or masses palpated, and no cervical lymphadenopathy. Supple, full range of motion without nuchal rigidity, or vertebral point tenderness. No Meningismus. Chest/axilla: Normal chest wall appearance and motion. Nontender with no deformity. No lesions are appreciated. Respiratory: Lungs have equal breath sounds bilaterally, clear to auscultation and percussion. No rales, rhonchi or wheezes noted. No increased work of breathing, no retractions or nasal flaring. Abdomen/GI: Soft, non-tender, with normal bowel sounds. No distension or tympany. No guarding or rebound. No evidence of tenderness throughout. Back: No spinal tenderness. No costovertebral tenderness. Full range of motion. Female : Normal external genitalia. Skin: Warm, dry with normal turgor. Normal color with no rashes, no lesions, and no evidence of cellulitis. MS/ Extremity: Pulses equal, no cyanosis. Neurovascular intact. Full, normal range of motion. Neuro: Awake and alert, GCS 15, oriented to person, place, time, and situation. Cranial nerves II-XII grossly intact. Motor strength 5/5 in all extremities. Sensory grossly intact. Cerebellar exam normal. Normal gait. Psych: Awake, alert, with orientation to person, place and time. Behavior, mood, and affect are within normal limits. 03:23 Cardiovascular: Rate: tachycardic, actual rate is 113 bpm, Rhythm: regular, Pulses: no pulse deficits are appreciated, Heart sounds: normal, normal S1and S2, no S3 or S4, no murmur, no rub, no gallop, Edema: is not appreciated, JVD: is not appreciated, 03:23 ECG was reviewed by the Attending Physician. Vital Signs: 01:15 BP 123 / 88; Pulse 113; Resp 18; Temp 98; Pulse Ox 100% ; cp4 02:00 BP 151 / 105; Pulse 115; Resp 18; Pulse Ox 95% ; cp4 03:00 BP 142 / 97; Pulse 117; Resp 18; Pulse Ox 97% ; cp4 03:36 Weight 106.14 kg; cp4 03:50 BP 149 / 94 RA; Pulse 106; Resp 18; Pulse Ox 95% ; cp4 04:28 BP 137 / 101; Pulse 88; Resp 18; Pulse Ox 96% ; cp4 05:13 BP 151 / 85; Pulse 84; Resp 18; Pulse Ox 96% ; rs5 07:00 BP 145 / 81; Pulse 70; Resp 17; Pulse Ox 99% on R/A; rs5 MDM: 00:49 Patient medically screened. [facility] 01/10 00:50 Order name: Basic Metabolic Panel; Complete Time: 02:59 [facility] 01/10 00:50 Order name: CBC with Diff; Complete Time: 02:59 [facility] 01/10 00:50 Order name: LFT's; Complete Time: 02:59 [facility] 01/10 00:50 Order name: Magnesium; Complete Time: 02:59 [facility] 01/10 00:50 Order name: NT PRO-BNP; Complete Time: 02:59 [facility] 01/10 00:50 Order name: PT-INR [facility] 01/10 00:50 Order name: Troponin HS; Complete Time: 02:59 [facility] 01/10 00:50 Order name: Lipase; Complete Time: 02:59 [facility] 01/10 00:50 Order name: Urinalysis w/ reflexes; Complete Time: 03:16 [facility] 01/10 00:50 Order name: D-Dimer [facility] 01/10 05:24 Order name: Lipid Profile [facility] 01/10 05:24 Order name: Lipid Profile [facility] 01/10 05:24 Order name: Troponin High Sensitivity [facility] 01/10 05:24 Order name: Troponin High Sensitivity [facility] 01/10 05:24 Order name: Troponin High Sensitivity [facility] 01/10 05:24 Order name: Troponin High Sensitivity [facility] 01/10 00:50 Order name: XRAY Chest (1 view) [facility] 01/10 03:22 Order name: CT Head Brain wo Cont [facility] 01/10 03:29 Order name: US Extremity Venous W Compression Edi [facility] 01/10 00:50 Order name: EKG; Complete Time: 00:51 [facility] 01/10 00:50 Order name: Cardiac monitoring; Complete Time: 01:00 [facility] 01/10 00:50 Order name: EKG - Nurse/Tech; Complete Time: 01:00 [facility] 01/10 00:50 Order name: IV Saline Lock; Complete Time: 01:00 [facility] 01/10 00:50 Order name: Labs collected and sent; Complete Time: 01:14 [facility] 01/10 00:50 Order name: O2 Per Protocol; Complete Time: 01:00 [facility] 01/10 00:50 Order name: O2 Sat Monitoring; Complete Time: 01:00 [facility] 01/10 03:29 Order name: Bilateral blood pressure; Complete Time: 03:39 [facility] EC:23 Rate is 111 beats/min. Rhythm is regular. QRS [place] is Normal. [place] interval is normal. QT madeleine interval is normal. No Q waves. T waves are Normal. No ST changes noted. Clinical impression: Sinus tachycardia. Interpreted by me. Reviewed by me. Administered Medications: 01:00 Not Given (Patient already takenn): aspirinchewable tablet 81 mg PO once cp4 01:52 Drug: Ondansetron IVP 4 mg IVP once; over 2 minutes Route: IVP; Site: right forearm; cp4 03:07 Follow up: Response: No adverse reaction cp4 01:53 Drug: Famotidine IVP 20 mg IVP once; dilute with 10 mL 0.9% NaCl; give over 2 minutes cp4 Route: IVP; Site: right forearm; 03:07 Follow up: Response: No adverse reaction cp4 01:53 Drug: morphine IVP or IV 4 mg IVP once over 4 mins Route: IVP; Infused Over: 4 mins; cp4 Site: right forearm; 03:07 Follow up: Response: No adverse reaction cp4 03:07 Drug: morphine IVP or IV 2 mg IVP once over 4 mins Route: IVP; Infused Over: 4 mins; cp4 Site: right forearm; 06:58 Follow up: Response: No adverse reaction; Pain is decreased cp4 03:51 Drug: Enoxaparin Sub-Q 1 mg/kg Sub-Q once Route: Sub-Q; Site: abdomen; cp4 06:57 Follow up: Response: No adverse reaction cp4 03:51 Drug: NS 0.9% IV 1000 ml IV at 1 bolus Per protocol; 1000 mL bolus Route: IV; Rate: 1 cp4 bolus; Site: right forearm; 05:00 Follow up: Response: No adverse reaction; IV Status: Completed infusion cp4 03:51 Drug: Potassium PO Effervescent Tablet 50 mEq PO once; dissolve in 4 ounces of water or cp4 juice Route: PO; 06:57 Follow up: Response: No adverse reaction cp4 03:59 Drug: Metoprolol IVP 2.5 mg IVP once; Hold for SBP <100 or HR <60. Route: IVP; Site: cp4 right forearm; 06:58 Follow up: Response: No adverse reaction cp4 04:29 Drug: Metoprolol IVP 2.5 mg IVP once; Hold for SBP <100 or HR <60. Route: IVP; Site: cp4 right forearm; 06:58 Follow up: Response: No adverse reaction cp4 Disposition Summary: 01/11/24 03:27 Hospitalization Ordered Notes: Hospitalization Status: Observation madeleine Provider: Perez Still cha Condition: Fair madeleine Problem: new madeleine Symptoms: have improved madeleine Bed/Room Type: Standard [facility] Location: [facility] ER HOLD(01/11/24 12:45) [facility] Room Assignment: ERHOLD-(01/11/24 12:45) [facility] Diagnosis - Chest pain, unspecified madeleine - Essential (primary) hypertension madeleine - Tobacco abuse counseling madeleine - Tobacco use madeleine - Hypokalemia madeleine Forms: - Medication Reconciliation Form madeleine - SBAR form madeleine - Leadership Thank You Letter madeleine Signatures: Dispatcher [employer] Mayank Wright MD MD cha Garcia, Cindy, RN RN Bebo Varghese RN RN ja1 Jimi Vargas RN RN rs5 Janina Montelongo cp4 Corrections: (The following items were deleted from the chart) 00:51 00:51 BASIC METABOLIC PANEL+C.LAB.BRZ ordered. EDMS EDMS 00:51 00:51 CBC+H.LAB.BRZ ordered. EDMS EDMS 00:51 00:51 HEPATIC FUNCTION+C.LAB.BRZ ordered. EDMS EDMS 00:51 00:51 MAGNESIUM+C.LAB.BRZ ordered. EDMS EDMS 00:51 00:51 PROBNP+C.LAB.BRZ ordered. EDMS EDMS 00:51 00:51 PROTIME (+INR)+COAG.LAB.BRZ ordered. EDMS EDMS 00:51 00:51 Troponin High Sensitivity+C.LAB.BRZ ordered. EDMS EDMS 00:51 00:51 LIPASE+C.LAB.BRZ ordered. EDMS EDMS 00:51 00:51 Urinalysis+U.LAB.BRZ ordered. EDMS EDMS 00:51 00:51 D-DIMER+COAG.LAB.BRZ ordered. EDMS EDMS 03:23 03:23 Head Brain Wo Cont+CT.RAD.BRZ ordered. EDMS EDMS 05:06 03:27 Telemetry/MedSurg (observation) madeleine cg 05:06 03:27 madeleine cg 12:21 05:06 [facility] ER HOLD cg ja1 12:21 05:06 ERHOLD- cg ja1 12:45 12:21 Telemetry/MedSurg (observation) ja1 ja1 12:45 12:21 209 ja1 ja1
--- NOTE | 2024-01-11 03:28 | ER ---
Nurse's Notes [facility] Name: Charity Hanks Age: 43 yrs Sex: Female : 1980 Arrival Date: 01/11/2024 Time: 00:46 Bed 19 Private MD: Diagnosis: Chest pain, unspecified;Essential (primary) hypertension;Tobacco abuse counseling;Tobacco use;Hypokalemia Presentation: 01/10 01:15 Chief complaint: EMS states: chest pain that started yesterday. Coronavirus screen: cp4 Client denies travel out of the [place] in the last 14 days. At this time, the client does not indicate any symptoms associated with coronavirus-19. Ebola Screen: Patient negative for fever greater than or equal to 101.5 degrees Fahrenheit, and additional compatible Ebola Virus Disease symptoms Patient denies exposure to infectious person. Patient denies travel to an Ebola-affected area in the 21 days before illness onset. No symptoms or risks identified at this time. Initial Sepsis Screen: Does the patient meet any 2 criteria? No. Patient's initial sepsis screen is negative. Does the patient have a suspected source of infection? No. Patient's initial sepsis screen is negative. Risk Assessment: Do you want to hurt yourself or someone else? Patient reports no desire to harm self or others. Onset of symptoms was January 09, 2024. 01:15 Method Of Arrival: EMS: [facility] 01:15 Acuity: CARLOS 3 cp4 Triage Assessment: 01:17 General: Appears uncomfortable, Behavior is calm, cooperative, appropriate for age. cp4 Pain: Complains of pain in chest Pain radiates to left arm Pain currently is 8 out of 10 on a pain scale. Cardiovascular: Reports chest pain, nausea, shortness of breath. 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 - Infectious Disease History:: Denies. - Social history:: Smoking status: Patient reports the use of cigarette tobacco products, smokes one-half pack cigarettes per day. Screenin:19 [facility] ED Fall Risk Assessment (Adult) History of falling in the last 3 months, cp4 including since admission No falls in past 3 months (0 pts) Confusion or Disorientation No (0 pts) Intoxicated or Sedated No (0 pts) Impaired Gait No (0 pts) Mobility Assist Device Used No (0 pt) Altered Elimination No (0 pt) Score/Fall Risk Level 0 - 2 = Low Risk Oriented to surroundings, Maintained a safe environment, Assessed \T\ reinforced patient's understanding of fall precautions, Hourly rounding (assess needs \T\ fall precautionary measures) done. Abuse screen: Denies threats or abuse. Nutritional screening: No deficits noted. Tuberculosis screening: No symptoms or risk factors identified. Assessment: :19 Reassessment: No changes from previously documented assessment. Pain: Pain began 1 day cp4 ago. 07:00 General: Appears in no apparent distress. comfortable, Behavior is calm, cooperative. rs5 Pain: Denies pain. Neuro: Level of Consciousness is awake, alert, obeys commands, Oriented to person, place, time, situation. Cardiovascular: Patient's skin is warm and dry. Respiratory: Airway is patent Respiratory effort is even, unlabored, Respiratory pattern is regular, symmetrical. GI: Abdomen is round non-distended, Abd is soft and non tender X 4 quads. : No signs and/or symptoms were reported regarding the genitourinary system. EENT: No signs and/or symptoms were reported regarding the EENT system. Derm: Skin is intact, Skin is pink, warm \T\ dry. Musculoskeletal: Range of motion: intact in all extremities. Vital Signs: 01:15 BP 123 / 88; Pulse 113; Resp 18; Temp 98; Pulse Ox 100% ; cp4 02:00 BP 151 / 105; Pulse 115; Resp 18; Pulse Ox 95% ; cp4 03:00 BP 142 / 97; Pulse 117; Resp 18; Pulse Ox 97% ; cp4 03:36 Weight 106.14 kg; cp4 03:50 BP 149 / 94 RA; Pulse 106; Resp 18; Pulse Ox 95% ; cp4 04:28 BP 137 / 101; Pulse 88; Resp 18; Pulse Ox 96% ; cp4 05:13 BP 151 / 85; Pulse 84; Resp 18; Pulse Ox 96% ; rs5 07:00 BP 145 / 81; Pulse 70; Resp 17; Pulse Ox 99% on R/A; rs5 ED Course: 00:47 Patient arrived in ED. cp4 00:49 Mayank Butler MD is Attending Physician. madeleine 01:14 Urinalysis w/ reflexes Sent. cp4 01:14 Lipase Sent. cp4 01:14 Basic Metabolic Panel Sent. cp4 01:15 CBC with Diff Sent. cp4 01:15 LFT's Sent. cp4 01:15 Magnesium Sent. cp4 01:15 NT PRO-BNP Sent. cp4 01:15 PT-INR Sent. cp4 01:15 Troponin HS Sent. cp4 01:17 Triage completed. cp4 01:17 Arm band placed on right wrist. Patient placed in an exam room, on a stretcher. cp4 01:19 Maintain EMS IV. Dressing intact. Good blood return noted. Site clean \T\ dry. Gauge \T\ cp 4 site: 22 R hand. 01:19 Bed in low position. Call light in reach. Side rails up X2. Provided Education on: cp4 chest pain. Client placed on continuous cardiac and pulse oximetry monitoring. NIBP monitoring applied. quality assurance monitor final on. 01:41 Janina Montelongo is Primary Nurse. cp4 01:53 No provider procedures requiring assistance completed. Inserted saline lock: 20 gauge cp4 in right forearm, using aseptic technique. O2 via room air. 02:22 XRAY Chest (1 view) In Process Unspecified. EDMS 03:26 Perez Still MD is Hospitalizing Provider. madeleine 04:16 CT Head Brain wo Cont In Process Unspecified. EDMS 05:40 US Extremity Venous W Compression Edi In Process Unspecified. EDMS 06:56 Patient admitted, IV remains in place. cp4 Administered Medications: 01:00 Not Given (Patient already takenn): aspirinchewable tablet 81 mg PO once cp4 01:52 Drug: Ondansetron IVP 4 mg IVP once; over 2 minutes Route: IVP; Site: right forearm; cp4 03:07 Follow up: Response: No adverse reaction cp4 01:53 Drug: Famotidine IVP 20 mg IVP once; dilute with 10 mL 0.9% NaCl; give over 2 minutes cp4 Route: IVP; Site: right forearm; 03:07 Follow up: Response: No adverse reaction cp4 01:53 Drug: morphine IVP or IV 4 mg IVP once over 4 mins Route: IVP; Infused Over: 4 mins; cp4 Site: right forearm; 03:07 Follow up: Response: No adverse reaction cp4 03:07 Drug: morphine IVP or IV 2 mg IVP once over 4 mins Route: IVP; Infused Over: 4 mins; cp4 Site: right forearm; 06:58 Follow up: Response: No adverse reaction; Pain is decreased cp4 03:51 Drug: Enoxaparin Sub-Q 1 mg/kg Sub-Q once Route: Sub-Q; Site: abdomen; cp4 06:57 Follow up: Response: No adverse reaction cp4 03:51 Drug: NS 0.9% IV 1000 ml IV at 1 bolus Per protocol; 1000 mL bolus Route: IV; Rate: 1 cp4 bolus; Site: right forearm; 05:00 Follow up: Response: No adverse reaction; IV Status: Completed infusion cp4 03:51 Drug: Potassium PO Effervescent Tablet 50 mEq PO once; dissolve in 4 ounces of water or cp4 juice Route: PO; 06:57 Follow up: Response: No adverse reaction cp4 03:59 Drug: Metoprolol IVP 2.5 mg IVP once; Hold for SBP <100 or HR <60. Route: IVP; Site: cp4 right forearm; 06:58 Follow up: Response: No adverse reaction cp4 04:29 Drug: Metoprolol IVP 2.5 mg IVP once; Hold for SBP <100 or HR <60. Route: IVP; Site: cp4 right forearm; 06:58 Follow up: Response: No adverse reaction cp4 Medication: 01:19 VIS not applicable for this client. cp4 Outcome: 03:27 Decision to Hospitalize by Provider. madeleine 05:30 Admitted to ER Hold. Please see [facility] for further documentation. cp4 05:30 Condition: stable 05:30 Instructed on the need for admit, 17:10 Patient left the ED. rs5 Signatures: Dispatcher [employer] EDMayank Buck MD MD cha Sotelo, Ricky, RN RN rs5 Janina Montelongo cp4 Corrections: (The following items were deleted from the chart) 09:43 05:13 BP 151 / 85; Pulse 8bpm; Resp 18bpm; Pulse Ox 96%; cp4 rs5
[2024-01-11] MEDS ORDERED: NA CHLORIDE 0.9% 1,000 ML ONE (03:42)
[2024-01-11] MEDS ORDERED: ENOXAPARIN 100 MG/ML SYR SQ ONE (03:42)
[2024-01-11] MEDS ORDERED: POTASSIUM 25 MEQ EFFERV TAB ONE (03:42)
[2024-01-11] MEDS ORDERED: METOPROLOL TARTRATE 5 MG/5 ML INJ IV ONE (03:56)
[2024-01-11 05:02] LABS: D-Dimer < 0.215 FEUug/mL (0-0.50)
[2024-01-11] MEDS ORDERED: ONDANSETRON 4 MG/2 ML VIAL IV PRN (05:19)
--- NOTE | 2024-01-11 05:19 | P.HP ---
Certification for Inpatient Patient admitted to: Observation With expected LOS: <2 Midnights Practitioner: I am a practitioner with admitting privileges, knowledge of patient current condition, hospital course, and medical plan of care. Services: Services provided to patient in accordance with Admission requirements found in Title 42 Section 412.3 of the Code of Federal Regulations Patient History Date of Service: 01/11/24 Reason for admission: Chest pain History of Present Illness: 43-year-old with past medical history of hypertension, chronic tobacco use, CAD status post PCI in the past who presented intermittent left-sided chest pain since the last 2 days. Symptoms associated with mild shortness of breath. She denies any fever or cough. Symptoms continue to persist. On arrival in the ED vital signs were stable, EKG shows no ST segment changes. Chest x-ray shows no acute infiltrate. Head CT shows no intracranial abnormality. Laboratory workup was unremarkable except for potassium of 3.2, WBC mildly elevated at 8.2 but no differential. Troponin negative at less than 3. Patient has been admitted for atypical chest pain Allergies No Known Allergies Allergy (Unverified 03/25/22 00:43) Home Medications: Doxepin HCl 3 mg PO BEDTIME 12/05/23 Ketorolac Tromethamine 1 tab PO Q6HP PRN 12/05/23 Lorazepam [Ativan] 1 mg PO BID 12/05/23 Sertraline HCl 150 mg PO DAILY 12/05/23 Suvorexant [Belsomra] 20 mg PO BEDTIME 12/05/23 hydrOXYzine pamoate [Hydroxyzine Pamoate] 1 tab PO BEDTIME PRN PRN 12/05/23 Aspirin [Adult Aspirin Regimen] 81 mg PO DAILY 30 Days #30 tab 12/06/23 Atorvastatin Calcium 40 mg PO DAILY 30 Days #30 tab 12/06/23 Clopidogrel Bisulfate [Plavix*] 75 mg PO DAILY 30 Days #30 tab 12/06/23 Mometasone/Formoterol [Dulera 200 Mcg/5 Mcg Inhaler] 2 puff IH BID 30 Days #1 inhaler 12/06/23 Isosorbide Mononitrate [Isosorbide Mononitrate ER] 30 mg PO DAILY 30 Days #30 tab 12/16/23 Pantoprazole Sodium [Protonix] 40 mg PO DAILY 30 Days #30 tab 12/16/23 Sucralfate [Carafate] 1 gm PO TID 10 Days #30 tab 12/16/23 - Past Medical/Surgical History Diabetic: No -: Anxiety/depression -: Bipolar -: PTSD -: HLD -: [place] -: Cholecystectomy -: tonsillectomy -: cardiac stent x1 Psychosocial/ Personal History: Unemployed, lives at home with her father and 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 - Family History Mother -: Heart disease Father -: Heart disease Brother Notes: bipolar. anxiety. depression - Social History Alcohol use: No CD- Drugs: No Caffeine use: Yes Physical Examination - Physical Exam General: In no apparent distress, Oriented x3 HEENT: Atraumatic, Normocephalic, PERRLA Neck: Supple, 2+ carotid pulse no bruit, JVD not distended Respiratory: Clear to auscultation bilaterally, Normal air movement Cardiovascular: No edema, Normal pulses, Normal S1 S2 Gastrointestinal: Normal bowel sounds, Soft and benign Musculoskeletal: No clubbing, No swelling Neurological: Normal speech, Normal strength at 5/5 x4 extr - Studies Laboratory Data (last 24 hrs) 01/11/24 01/11/24 01/11/24 01:11 01:11 01:11 WBC 13.50 H Hgb 12.8 Hct 38.2 Plt Count 355 PT 11.6 INR 1.06 Sodium 138 Potassium 3.2 L BUN 7 Creatinine 0.67 Glucose 115 H Magnesium 1.7 Total Bilirubin < 0.2 L AST 12 L ALT 22 Alkaline Phosphatase 80 Lipase 39 Assessment and Plan - Plan Impression Atypical chest pain Chronic tobacco use Hypertension History of CAD Plan Will admit to observation Serial sets of cardiac enzymes Sublingual nitro as needed Gentle IV fluid normal saline Resume home meds IV hydralazine as needed Start aspirin and Plavix Lovenox for DVT prophylax Full code - Advance Directives Does patient have a Living Will: No Does patient have a Durable POA for Healthcare: No Physician Review: Patient Assessed, Agree with Above Assessment and Plan Time Spent Managing Pts Care (In Minutes): 65
[2024-01-11] MEDS: NITROGLYCERIN 0.4 MG/TAB SL ONE ×2 (05:21→11:35)
[2024-01-11] MEDS ORDERED: HYDRALAZINE HCL 20 MG/ML VIAL IV PRN (05:21)
[2024-01-11] MEDS ORDERED: NITROGLYCERIN 0.4 MG/TAB SL ONE (05:42)
[2024-01-11] MEDS: Ringers Lactate 1,000 ML IV SCH (06:00)
[2024-01-11] MEDS: MORPHINE 2 MG/ML SYR IV PRN (06:11)
[2024-01-11] MEDS ORDERED: Ringers Lactate 1,000 ML IV ONE (06:50)
[2024-01-11 06:52] VITALS: BMI 42.7
[2024-01-11] MEDS: ARIPiprazole 5 MG TAB PO SCH (09:00)
[2024-01-11] MEDS: ASPIRIN EC 81 MG TAB PO SCH (09:00)
[2024-01-11] MEDS: CLOPIDOGREL 75 MG TABLET PO SCH (09:00)
[2024-01-11] MEDS: PANTOPRAZOLE 40MG TABLET PO SCH (09:00)
[2024-01-11] MEDS: SERTRALINE HCL 100 MG TAB PO SCH (09:00)
[2024-01-11] MEDS ORDERED: CLOPIDOGREL 75 MG TABLET ONE (09:07)
[2024-01-11] MEDS ORDERED: PANTOPRAZOLE 40MG TABLET PO ONE (09:07)
[2024-01-11] MEDS ORDERED: ASPIRIN EC 81 MG TAB PO ONE (09:07)
[2024-01-11] MEDS: MORPHINE 4 MG/ML SYR IV PRN (09:45)
[2024-01-11] MEDS ORDERED: LORAZEPAM 0.5 MG TABLET ONE (10:49)
[2024-01-11] MEDS: LORAZEPAM 0.5 MG TABLET PO PRN (10:57)
[2024-01-11] MEDS: ISOSORBIDE MONO SR 30 MG TAB PO SCH (12:00)
--- NOTE | 2024-01-11 13:14 | P.CNS ---
Chief Complaint: Chest pain History of Present Illness: Patient with PMH of HTN, HLD CAD S/P Recent PCI RPDA presented with chest pain, pressure, radiate to her arm and neck, has been going on since yesterday. Allergies No Known Allergies Allergy (Unverified 03/25/22 00:43) Home medications list reviewed: Yes Home Medications: Sertraline HCl 150 mg PO DAILY 12/05/23 Suvorexant [Belsomra] 20 mg PO BEDTIME 12/05/23 hydrOXYzine pamoate [Hydroxyzine Pamoate] 1 tab PO BEDTIME PRN PRN 12/05/23 Aspirin [Adult Aspirin Regimen] 81 mg PO DAILY 30 Days #30 tab 12/06/23 Atorvastatin Calcium 40 mg PO DAILY 30 Days #30 tab 12/06/23 Clopidogrel Bisulfate [Plavix*] 75 mg PO DAILY 30 Days #30 tab 12/06/23 Isosorbide Mononitrate [Isosorbide Mononitrate ER] 30 mg PO DAILY 30 Days #30 tab 12/16/23 Pantoprazole Sodium [Protonix] 40 mg PO DAILY 30 Days #30 tab 12/16/23 ARIPiprazole [Abilify*] 1 tab PO DAILY 01/11/24 - Past Medical/Surgical History Diabetic: No -: Anxiety/depression -: Bipolar -: PTSD -: HLD -: ND -: Cholecystectomy -: tonsillectomy -: cardiac stent x1 Psychosocial/ Personal History: Unemployed, lives at home with her father and 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 - Family History Mother Medical History: Heart disease Father Medical History: Heart disease Brother Notes: bipolar. anxiety. depression - Social History Smoking Status: Current every day smoker Alcohol use: No CD- Drugs: No Caffeine use: Yes Review of Systems 10-point ROS is otherwise unremarkable Physical Examination Temp Pulse Resp BP Pulse Ox 97.8 F 77 17 144/94 H 99 01/11/24 12:00 01/11/24 12:00 01/11/24 12:00 01/11/24 12:01/11/24 12:00 General: Alert, In no apparent distress HEENT: Atraumatic, PERRLA, Mucous membr. moist/pink, EOMI, Sclerae nonicteric Neck: Supple, 2+ carotid pulse no bruit, No LAD, Without JVD or thyroid abnormality Respiratory: Clear to auscultation bilaterally, Normal air movement Cardiovascular: Regular rate/rhythm, Normal S1 S2 Gastrointestinal: Normal bowel sounds, No tenderness Musculoskeletal: No tenderness Integumentary: No rashes Neurological: Normal gait, Normal speech, Normal tone, Normal affect Lymphatics: No axilla or inguinal lymphadenopathy Laboratory Data (last 24 hrs) 01/11/24 01/11/24 01/11/24 01:11 01:11 01:11 WBC 13.50 H Hgb 12.8 Hct 38.2 Plt Count 355 PT 11.6 INR 1.06 Sodium 138 Potassium 3.2 L BUN 7 Creatinine 0.67 Glucose 115 H Magnesium 1.7 Total Bilirubin < 0.2 L AST 12 L ALT 22 Alkaline Phosphatase 80 Lipase 39 - Problems (1) HTN (hypertension) Current Visit: Yes Status: Acute Plan: Increase Imdur to 60 mg daily. (2) HLD (hyperlipidemia) Current Visit: Yes Status: Acute Plan: continue lipitor 40 mg daily (3) CAD (coronary artery disease) Current Visit: No Status: Acute Plan: Troponin negative x 2, continue to trend for 3 sets, if negative then D/C continue ASA 81 mg daily continue Plavix 75 mg daily Increase IMdur to 60 mg daily.
[2024-01-11 17:28] VITALS: BP 139/84; TEMP 97.9; O2SAT 99
[2024-01-11] MEDS ORDERED: ATORVASTATIN 40 MG TAB PO SCH (21:00)
--- NOTE | 2024-01-12 07:29 | P.DS ---
Admission Date: 01/11/24 Discharge Date: 01/11/24 Disposition: ROUTINE DISCHARGE Discharge Condition: GOOD Reason for Admission: Chest pain Consultations: Cardiology Dr. Patel Brief History of Present Illness: 43yo F, PMH: hypertension, chronic tobacco use, CAD status post PCI in the past Patient presented intermittent left-sided chest pain since the last 2 days. Symptoms associated with mild shortness of breath. She denies any fever or cough. Symptoms continue to persist. On arrival in the ED vital signs were stable, EKG shows no ST segment changes. Chest x-ray shows no acute infiltrate. Head CT shows no intracranial abnormality. Laboratory workup was unremarkable except for potassium of 3.2, WBC mildly elevated at 8.2 but no differential. Troponin negative at less than 3. Patient has been admitted for atypical chest pain Hospital Course: Problem List: Atypical chest pain hx CAD Hypertension Chronic tobacco use Physician discharge instructions Patient presented with intermittent left-sided chest discomfort over the last 2 days. Troponins were negative x3, d-dimer negative. Labwork on admission was unremarkable. Chest xray, CT head, lower extremity ultrasound were all negative for any acute findings. Cardiology was consulted. Discussed case with Dr. Patel, given negative tropon ins, recent heart cath and atypical chest pain, recommended follow up in near future for further discussion / management. No findings to warrant further cardiac work up. Dr. Patel recommended increasing imdur to 60mg daily Medications: Increased Imdur from 30mg to 60mg daily Follow up: PCP 3-5 days Cardiology 2-4 weeks Please call to schedule / confirm appointments Physical Exam: GEN: Alert, oriented, NAD HEENT: Normal conjunctiva, sclera anicteric CV: Irregularly Irregular rate and rhythm, no edema Pulm: Nonlabored respirations on room air, clear bilaterally ABD: Soft, nontender, nondistended Neuro: Normal speech, normal affect Vital Signs/Physical Exam: Temp Pulse Resp BP Pulse Ox 97.9 F 70 16 139/84 99 01/11/24 17:00 01/11/24 17:00 01/11/24 17:00 01/11/24 17:00 01/11/24 17:00 Laboratory Data at Discharge: WBC 13.50 thou/uL (4.3-10.9) H 01/11/24 01:11 Hgb 12.8 g/dL (12.0-15.0) 01/11/24 01:11 Hct 38.2 % (36.0-45.0) 01/11/24 01:11 Plt Count 355 thou/uL (152-406) 01/11/24 01:11 PT 11.6 SECONDS (9.4-12.5) 01/11/24 01:11 INR 1.06 01/11/24 01:11 Sodium 138 mEq/L (136-145) 01/11/24 01:11 Potassium 3.2 mEq/L (3.5-5.1) L 01/11/24 01:11 BUN 7 mg/dL (7-18) 01/11/24 01:11 Creatinine 0.67 mg/dL (0.55-1.02) 01/11/24 01:11 Glucose 115 mg/dL (74-106) H 01/11/24 01:11 Magnesium 1.7 mg/dL (1.6-2.4) 01/11/24 01:11 Total Bilirubin < 0.2 mg/dL (0.2-1.0) L 01/11/24 01:11 AST 12 U/L (15-37) L 01/11/24 01:11 ALT 22 U/L (13-56) 01/11/24 01:11 Alkaline Phosphatase 80 U/L (45-117) 01/11/24 01:11 Lipase 39 U/L (13-75) 01/11/24 01:11 Home Medications: Sertraline HCl 150 mg PO DAILY 12/05/23 Suvorexant [Belsomra] 20 mg PO BEDTIME 12/05/23 hydrOXYzine pamoate [Hydroxyzine Pamoate] 1 tab PO BEDTIME PRN PRN 12/05/23 Aspirin [Adult Aspirin Regimen] 81 mg PO DAILY 30 Days #30 tab 12/06/23 Atorvastatin Calcium 40 mg PO DAILY 30 Days #30 tab 12/06/23 Clopidogrel Bisulfate [Plavix*] 75 mg PO DAILY 30 Days #30 tab 12/06/23 Pantoprazole Sodium [Protonix] 40 mg PO DAILY 30 Days #30 tab 12/16/23 ARIPiprazole [Abilify*] 1 tab PO DAILY 01/11/24 Isosorbide Mononitrate [Isosorbide Mononitrate ER] 60 mg PO DAILY 30 Days #30 tab 01/11/24 New Medications: Isosorbide Mononitrate [Isosorbide Mononitrate ER] 60 mg PO DAILY 30 Days #30 tab Physician Discharge Instructions: Physician discharge instructions Patient presented with intermittent left-sided chest discomfort over the last 2 days. Troponins were negative x3, d-dimer negative. Labwork on admission was unremarkable. Chest xray, CT head, lower extremity ultrasound were all negative for any acute findings. Cardiology was consulted. Discussed case with Dr. Patel, given negative troponins, recent heart cath and atypical chest pain, recommended follow up in near future for further discussion / management. No findings to warrant further cardiac work up. Dr. Patel recommended increasing imdur to 60mg daily Medications: Increased Imdur from 30mg to 60mg daily Follow up: PCP 3-5 days Cardiology 2-4 weeks Please call to schedule / confirm appointments Followup: OOT,OOT [Primary Care Provider] - Time spent managing pt's care (in minutes): 45
[2024-01-12] MEDS ORDERED: ENOXAPARIN 40 MG/0.4 ML SQ SCH (09:00)
--- NOTE | 2024-01-12 10:31 | EKG ---
Test Date: 2024-01-11 Test Time: 00:55:04 Emergency Response Coordinator: JR MEASUREMENT RESULTS: Intervals: Rate: 111 AR: 150 QRSD: 78 QT: 332 QTc: 451 [place]: P: 39 AR: 150 QRS: -39 T: 47 INTERPRETIVE STATEMENTS: Sinus tachycardia Biatrial enlargement Left axis deviation Possible Anterolateral infarct, age undetermined Abnormal ECG Compared to ECG 12/15/2023 20:31:07 No significant changes Electronically Signed On 01-12-24 10:30:43 CDT by James Patel
--- NOTE | 2024-01-12 13:49 | RAD REPORT ---
EXAM DESCRIPTION: Extrem Venous W Compress Edi US Bilateral Lower Extremity Venous Duplex Doppler CLINICAL HISTORY: Pain, Swelling COMPARISON: US left leg vein 12/08/2020 TECHNIQUE: Grayscale, color Doppler, duplex Doppler, spectral Doppler images and analysis with compr ession and augmentation of right and left lower extremity veins. FINDINGS: Right and Left common femoral, greater saphenous, femoral, deep (profunda) femoral, poplit eal veins unremarkable without evidence of clot. Bilateral lower leg (calf) veins not imaged. IMPRESSION: No sonographic evidence of right or left lower extremity DVT. Electronically signed by: Evan Mota MD 01/11/2024 06:30 AM CDT RP Due to temporary technical issues with the PACS/Fluency reporting system, reports are being signed by the in house radiologists without review as a courtesy to insure prompt reporting. The interpreting radiologist is fully responsible for the content of the report.
--- NOTE | 2024-01-12 15:19 | RAD REPORT ---
EXAM DESCRIPTION: CT of the head without contrast CLINICAL HISTORY: HEADACHE COMPARISON: Report from 10/04/2020 TECHNIQUE: Axial CT of the head obtained from the skull apex to the skull base without contrast. Thi s exam was performed according to our departmental dose-optimization program, which includes automate d exposure control, adjustment of the mA and/or kV according to patient size and/or use of iterative reconstruction technique. FINDINGS: No acute intracranial hemorrhage identified. No mass, mass effect, shift of the midline, a bnormal extra-axial fluid collection or CT evidence of acute ischemic change identified. The ventricu lar system is unremarkable. No acute abnormalities of the supratentorial white matter, basal gangli a, cerebellum, or brainstem. The visualized paranasal sinuses and the mastoids are relatively well aerated. No skull fracture id entified. Visualized orbits and globes are unremarkable. IMPRESSION: 1. No acute intracranial abnormality identified. Electronically signed by: Jens Miller DO 01/11/2024 05:07 AM CDT RP 4ZDM Due to temporary technical issues with the PACS/Fluency reporting system, reports are being signed by the in house radiologists without review as a courtesy to insure prompt reporting. The interpreting radiologist is fully responsible for the content of the report.
--- NOTE | 2024-01-12 15:54 | RAD REPORT ---
EXAM DESCRIPTION: Chest Single View CLINICAL HISTORY: CHEST PAIN COMPARISON: 12/15/2023 FINDINGS: Single frontal radiograph view of the chest. Cardiomediastinal silhouette: Atherosclerotic calcification of thoracic aorta. Heart is not enlarged. Lungs: No consolidation, pneumothorax, or pleural effusion. Low lung volumes. Bones: No acute osseous abnormality. Degenerative change of the spine and shoulders. Upper abdomen: No abnormality identified. IMPRESSION: 1. No acute pulmonary process identified. Low lung volumes. Electronically signed by: Jens Miller DO 01/11/2024 02:39 AM CDT 4ZDM Due to temporary technical issues with the PACS/Fluency reporting system, reports are being signed by the in house radiologists without review as a courtesy to insure prompt reporting. The interpreting radiologist is fully responsible for the content of the report.
== END 2024-01-11 17:31 | disposition home or self-care (01) ==
LOC: ER 00:46 → ERHOLD 05:19
PROVIDERS: ADMIT Internal Medicine; ATTEND Hospitalist
DX: R07.9 Chest pain, unspecified (principal); I25.10 Atherosclerotic heart disease of native coronary artery without angina pectoris; I10 Essential (primary) hypertension; E78.5 Hyperlipidemia, unspecified; F17.210 Nicotine dependence, cigarettes, uncomplicated; Z79.82 Long term (current) use of aspirin
CPT/HCPCS: 36415; 70450; 71045; 80048; 80076; 81003; 83690; 83735; 83880; 84484; 85025; 85379; 85610; 93005; 93970; J1650; J2270; J2405; J7030; J7120

== ENCOUNTER 2024-02-14 14:41 | Observation (INO) | payer OTHER ==
--- OUTSIDE RECORDS SUMMARY | 2024-02-14 14:52 | XMS REPORT | Continuity of Care Document ---
Author Name Unknown Address [address] [facility] [address] [place] [address] [facility] thconnect Address [address] [facility] [place]. [address] [place] [address] Support Name Relationship Address Phone RACHEL CASH Unknown Unavailable 1 Personal Relationship Unknown Unavai lable Unavailable Personal Relationship Unknown Unavai lable Leyda Villa Mother Unknown Unavailable Rachel Cox Father [address] [place] [address] one else per patient, No Emergency Contact Unknown Unavailable Rachel Cox Father [address] [facility] [address] [place] [address] PHYSICIAN, NO Primary Care Physician Unknown Unav ailable MD MORA POLLOCK A Emergency Provider [address] [place] [address] JAN COX natural parent [address] [address] MD SHERIDAN MCMANUS Emergency Provider [facility], [place] [address] CHARITY ROCA Guarantor [address] [place] [address] MD RIDDHI MYLES Attending Provider [facility] [place] [address] MD AN IRIZARRY Emergency Provider [facility], [place] [address] MD CARLOS SOLANO A Primary Care Physician [address] [facility] [place] [address] OTHER, ENTER NAME IN NOTES Primary Care Physician Unknown Unavailable MD Arelis Navarro Emergency Provider [address] [place] [address] MD SHAN BUSCH Attending Provider [address] [place] [address] PIYUSH JUAREZ [address] [place] [address] RACHEL COX [address] [place] [address] PATIENT, NO ONE ELSE PER Personal Relationship Unknown Unavailable Care Team Providers Care Auditor Tax Name Role Phone JOANNE MONTES Primary Care Physician Unavailab FARTUN Bernal Attending Clinician Unavailable JOANNE MONTES Attending Clinician Unavailable GISELLE OSORIO Attending Clinician Unavailable LAB90 Attending Clinician Unavailable COSMO Attending Clinician Unavailable OLIVIA GARCIA Attending Clinician Unavailable Olivia Garcia MD Attending Clinician [phone] SHERIDAN MCMANUS Attending Clinician UnavailROBERTO Melgar Attending Clinician Unavailable Roberto Richards MD Attending Clinician [phone] SHAN BUSCH Attending Clinician Unavailable RIDDHI MYLES Attending Clinician Unav ailable AN IRIZARRY Attending Clinician Unavailable NARAYAN NARVAEZ Attending Clinician Unavailable Narayan Narvaez DO Attending Clinician +[phone] Saleem EDWARD Attending Clinician Unavailable Saleem Perez Attending Clinician [phone] BRITTNI PADGETT S Attending Clinician Unavailable Brittni Elam S Attending Clinician [phone] JESÚS MONTERO Attending Clinician Unavailable Leeanne Wise NP Attending Clinician + [phone] Jesús Montero MD Attending Clinician [phone] FELTON Attending Clinician Unavailable MELIDA LONGORIA Attending Clinician Unavailable Melida Longoria MD Attending Clinician [phone] WIL MCQUEEN Attending Clinician Unavailable Mcqueen JEAN MARIEAzucenan R Attending Clinician + [phone] DEE WANG Attending Clinician Unavaila angel Wang DRAFTER ELECTRICAL, Dee Poncho Attending Clinician [phone] Doctor Unassigned, Currie Attending Clinician U navailCEM Mccullough Attending Clinician Unavailable Cem Choi MD Attending Clinician [phone] Ralph RAMIREZ, Shelley Ayala Attending Clinician [phone] Mo [employer]RAFTER [employer], Bal Attending Clinician + [phone] BAL HASSAN Attending Clinician Unavailable Ebviral MEDINAP, Tremaine Attending Clinician [phone] TREMAINE BECERRA Attending Clinician Unavailable LEEANNE WISE Attending Clinician Unavailable MORA POLLOCK Attending Clinician Unavailable Claudia MEDINAP, Best Odonnell Attending Clinician [phone] BEST TAYLOR Attending Clinician Unavailable Marbella Rizo RN Attending Clinician Unavailab bailee MEDINAP, Abdias Attending Clinician [phone] ABDIAS ROBERTSON Attending Clinician Unavailable Silver RAMIREZ, Kamryn Ayala Attending Clinician Unavail able Bushra Rios DO Attending Clinician [phone] BUSHRA RIOS Attending Clinician Unavailab SINCERE morocho [...] Unavailable RIDDHI MYLES Admitting Clinician Unav ailable SINGER NARAYAN Admitting Clinician Unavailable JESÚS MONTERO Admitting Clinician Unavailable Jesús Montero MD Admitting Clinician [phone] LA NENACHRISTELLE Admitting Clinician Unavailable MELIDA LONGORIA Admitting Clinician Unavailable WIL MCQUEEN Admitting Clinician Unavailable DEE WANG Admitting Clinician UnavailCEM oWmack Admitting Clinician Unavailable TREMAINE BECERRA Admitting Clinician Unavailable LEEANNE WISE Admitting Clinician Unavailable Saleem EDWARD Admitting Clinician Unavailable BEST TAYLOR Admitting Clinician Unavailable ABDIAS ROBERTSON Admitting Clinician Unavailable Payers Payer Name Policy Type Policy Number Effective Date Expirati on Date Source [employer] 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 [id number] 2023 00:00:00 [employer] 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 [id number] 2023 00:00:00 2023 00:00:00 [facility] BCBS BLUE ADVANTAGE O [id number] 2020 00:00:00 Problems Condition Name Condition Details Condition Category Status Onset Date Resolution Date Last Treatment Date Treating Clinician Comments Source Coronary artery disease Coronary artery disease Disease Active 12-12 00:00: 00 Kellee Leiva Externa khris Status post arterial stent Status [...] Chest pain, unspecifie d type Disease Active - 00:00: 00 [facility] Elevated brain natriureti c peptide (BNP) level Elevated brain natriureti c peptide (BNP) level Disease Active 2020-07 0-02 00:00: 00 [facility] Cigarette smoker Cigarette smoker Disease Active 2020-07 0-02 00:00: 00 [facility] Family history of early CAD Family history of early CAD Disease Active 2020-07 0- 00:00: 00 [facility] Primary hypertensi on Primary hypertensi on Disease Active 2020-07 0-02 00:00: 00 [facility] Elevated brain natriureti c peptide (BNP) level Elevated brain natriureti c peptide (BNP) level Disease Active 2020-07 0- 00:00: 00 [facility] Snores Snores Disease Active 2020-07 0- 00:00: 00 [facility] Chest pain Chest pain Disease Active 2020-07 0- 00:00: 00 [facility] Morbid obesity with body mass index of 40.0-49.9 Morbid obesity with body mass index of 40.0-49.9 Disease Active 2020-07 0- 00:00: 00 [facility] No known active problems No known active problems Disease [facility] Allergies, Adverse Reactions, Alerts Allergy Name Allergy Type Status Severity Reaction(s) Onset Date Inactive Date Treating Clinician Comments Source NO KNOWN ALLERGIE S Drug Class Active [facility] Social History Social Habit Start Date Stop Date Quantity Comments Source History of tobacco use 2018-10-27 00:00:00 Cigarette Smoker Kellee Buckley - External Sexual orientation Saleem Buckley - External Gender identity [facility] Alcoholic beverage intake 2024-02-06 00:00:00 2024-02-06 00:00:00 Current drinker of alcohol (finding) Kellee [...] 00:00:00 2023-10-28 00:00:00 Smokeless tobacco non-user Kellee Leiva External Tobacco Comment 2023-02-15 00:00:00 2023-02-15 00:00:00 In the process of quitting. Now smokes 5 cigarettes/ day from 2 packs per day [facility] Exposure to SARS-CoV-2 (event) 2021-12-30 00:00:00 2022-01-09 16:34:00 Unable to assess [facility] Education - What is the highest level of school you have completed or the highest degree you have received? 2021-04-07 00:00:00 2021-04-07 00:00:00 High school graduate [facility] Sex assigned at 1980 00:00:00 1980 00:00:00 Kellee Davies Smoking Status Start Date Stop Date Source Smokes tobacco daily 2023-10-28 00:00:00 Kellee Davies Unknown if ever smoked [facility] Medications Ordered Medication Name Filled Medication Name Start Date Stop Date Current Medication? Ordering Clinician Indication Dosage Frequency Signature (SIG) Comments Components Source Methylpredn isolone Acetate (Depo-Medro l) 40 mg/ml - Physician Administere d (J1030) 02-05 13:21: 25 No [id number] 40mg 40 mg, Physician Administer ed, ONCE, 1 dose, On Esperanza 02/06/24 at 1145 Kellee pinedo hydrOXYzine Pamoate 50 MG oral Capsule 02-05 11:06: 49 Yes [id number] 50mg Q.5D Take 1 capsule (50 mg total) by mouth 2 times daily as needed for anxiety. Kellee pinedo Lorazepam (ATIVAN) 0.5 MG oral Tablet tablet 01-09 00:00: 00 Yes [id number] .5mg Q.5D take 1 tablet by mouth 2 times daily as needed for anxiety Kellee pinedo Aspirin (Aspirin Low Dose) 81 MG oral Tablet Delayed Response 01-05 00:00: 00 Yes [id number] 81mg QD Take 1 tablet (81 mg total) by mouth daily. Kellee pinedo Atorvastati n Calcium 40 MG oral Tablet 01-05 00:00: 00 Yes [id number] 40mg QD Take 1 tablet (40 mg total) by mouth daily. Kellee pinedo Suvorexant (Belsomra) 20 MG oral Tablet 01-05 00:00: 00 Yes [id number] 1{tbl} QD Take 1 tablet by mouth nightly. Kellee pinedo Clopidogrel Bisulfate (PLAVIX) 75 MG oral Tablet 01-05 00:00: 00 Yes [id number] 75mg QD Take 1 tablet (75 mg total) by mouth daily. Kellee pinedo hydrOXYzine Pamoate 50 MG oral Capsule 12-12 09:19: 23 Yes [id number] 50mg Q.5D Take 1 capsule (50 mg total) by mouth 2 times daily as needed for anxiety. Kellee pinedo Lorazepam (ATIVAN) 0.5 MG oral Tablet tablet 12-12 00:00: 00 Yes [id number] .5mg Q.5D Take 1 tablet (0.5 mg total) by mouth 2 times daily as needed for anxiety. Kellee pinedo Aspirin Low Dose 81 MG oral Tablet Delayed Response 12-05 00:00: 00 Yes [id number] 81mg Take 1 tablet (81 mg total) by mouth daily. Kellee pinedo Atorvastati n Calcium 40 MG oral Tablet 12-05 00:00: 00 Yes [id number] 40mg Take 1 tablet (40 mg total) by mouth daily. Kellee pinedo Clopidogrel Bisulfate (PLAVIX) 75 MG oral Tablet 12-05 00:00: 00 Yes [id number] 75mg Take 1 tablet (75 mg total) by mouth daily. Kellee pinedo Mometasone Furo-Formot camelia Fum (Dulera) 200-5 MCG/ACT inhalation Aerosol 12-05 00:00: 00 Yes TWICE DAILY Kellee pinedo Ferrous Sulfate 325 (65 Fe) MG oral Tablet 12-04 00:00: 00 Yes [id number] 325mg QD Take 1 tablet (325 mg total) by mouth daily (with breakfast) . Kellee pinedo Vitamin D, Ergocalcife rol, 1.25 MG (94884 UT) oral Capsule 12-04 00:00: 00 Yes [id number] 03004B Q1W Take 1 capsule (50,000 units total) by mouth once a week. Kellee pinedo Mirtazapine 45 MG oral Tablet 12-02 10:49: 07 12-02 00:00 :00 No [id number] 45mg Take 1 tablet (45 mg total) by mouth nightly. Kellee pinedo hydrOXYzine Pamoate 50 MG oral Capsule 12-02 10:49: 04 Yes [id number] 50mg Q.5D Take 1 capsule (50 mg total) by mouth 2 times daily as needed for anxiety. Kellee pinedo Ascorbic Acid 500 MG oral Tablet 12-02 10:48: 55 12-02 00:00 :00 No 50mg Take 50 mg by mouth. Kellee pinedo Suvorexant (Belsomra) 20 MG oral Tablet 12-02 00:00: 00 Yes [id number] 1{tbl} Take 1 tablet by mouth nightly. Kellee pinedo Lorazepam 1 MG oral Tablet 12-02 00:00: 00 12-12 00:00 :00 No [id number] 1mg Q.5D Take 1 tablet (1 mg total) by mouth 2 times daily as needed for anxiety. Kellee pinedo Aripiprazol e 5 MG oral Tablet 11-27 00:00: 00 Yes [id number] 5mg QD TAKE 1 TABLET (5 MG TOTAL) BY MOUTH DAILY. Kellee pinedo Doxepin HCl 3 MG oral Tablet 11-27 00:00: 00 Yes [id number] 1{tbl} QD TAKE 1 TABLET BY MOUTH EVERY DAY AT NIGHT Kellee pinedo Mirtazapine 45 MG oral Tablet 10-28 13:20: 59 Yes [id number] 45mg Take 1 tablet (45 mg total) by mouth nightly. Kellee pinedo Ascorbic Acid 500 MG oral Tablet 10-28 13:20: 47 Yes 50mg Take 50 mg by mouth. Kellee pinedo hydrOXYzine Pamoate 50 MG oral Capsule 10-28 13:20: 47 10-28 00:00 :00 No [id number] 50mg Q.5D Take 1 capsule (50 mg total) by mouth every 4 to 6 hours as needed. Kellee pinedo Sertraline HCl 150 MG oral Capsule 10-28 13:20: 03 10-28 00:00 :00 No 150mg Take 150 mg by mouth daily. Kellee pniedo Doxepin HCl 3 MG oral Tablet 10-28 00:00: 00 Yes [id number] 1{tbl} Take 1 tablet by mouth nightly. Kellee pinedo Aripiprazol e 5 MG oral Tablet 10-28 00:00: 00 Yes [id number] 5mg Take 1 tablet (5 mg total) by mouth daily. Kellee pinedo Suvorexant 10 MG oral Tablet 10-28 00:00: 00 12-02 00:00 :00 No [id number] 1{tbl} Take 1 tablet by mouth nightly. Kellee pinedo Sertraline HCl 50 MG oral Tablet 10-26 00:00: 00 Yes [id number] Kellee pinedo HYDROcodone -acetaminop hen (NORCO) 10-325 mg tablet 1 tablet 10-10 06:15: 00 10-10 05:25 :00 No 1{tbl} 1 tablet, Oral, ONCE NOW, 1 dose, On Sat10/11/23 at 0115, ROSELYN [facility] iopamidol (ISOVUE 370-500 mL) injection 100 mL 10-10 05:00: 00 10-10 05:00 :00 No [id number] 100mL 100 mL, Intravenou s, ONCE, 1 dose, On Sat10/11/23 at 0000, Routine [facility] ketorolac (TORADOL) injection 30 mg 10-10 04:30: 00 10-10 03:29 :00 No 30mg 30 mg, Slow IV Push, ONCE, 1 dose, On Esperanza 10/10/23 at 2330, Routine [facility] NaCl 0.9% (NS) IV infusion 1,000 mL 10-10 04:15: 00 10-10 05:18 :00 No 1000mL at 999 mL/hr, Intravenou s, ONCE, 1 dose, On Sat10/10/23 at 2315, Routine [facility] ondansetron (ZOFRAN (PF)) injection 4 mg 10-10 04:00: 00 10-10 03:54 :00 No 4mg 4 mg, Slow IV Push, ONCE, 1 dose, On Sat10/10/23 at 2300, ROSELYN [facility] morpHINE (4 mg/mL) injection 4 mg 10-10 04:00: 00 10-10 03:54 :00 No 4mg 4 mg, Slow IV Push, ONCE, 1 dose, On Esperanza 10/10/23 at 2300, STAT [facility] traMADoL (ULTRAM) 50 mg tablet 10-10 00:00: 00 Yes [id number] 50mg Take 1 tablet by mouth every 6 (six) hours as needed for Pain (scale 7-10). Indication s: acute pain [facility] phenazopyri dine 200 mg tablet 10-10 00:00: 00 Yes [id number] 200mg Take 1 tablet by mouth in the morning and 1 tablet at noon and 1 tablet in the evening. [facility] ondansetron (ZOFRAN) 4 mg tablet 10-10 00:00: 00 Yes [id number] 4mg Take 1 tablet by mouth every 8 (eight) hours as needed for Nausea and Vomiting (N/V). [facility] ketorolac 10 mg tablet 10-10 00:00: 00 Yes [id number] 10mg Take 1 tablet by mouth every 6 (six) hours as needed for Pain (scale 7-10). [facility] Sertraline HCl 100 MG oral Tablet 10-09 00:00: 00 Yes [id number] 100mg Take 1 tablet (100 mg total) by mouth every morning. Kellee pinedo acetaminoph en (TYLENOL) tablet 975 mg 2022-07 04:15: 00 07-02 03:11 :00 No 975mg 975 mg, Oral, ONCE, 1 dose, On Sat07/01/23 at 2215, [facility] dicyclomine (BENTYL) tablet 20 mg 2022-07 03:15: 00 07-02 03:11 :00 No 20mg 20 mg, Oral, ONCE, 1 dose, On Sat07/01/23 at 2115, [facility] ketorolac (TORADOL) injection 30 mg 2022-07 03:15: 00 07-02 02:32 :00 No 30mg 30 mg, Slow IV Push, ONCE, 1 dose, On Sat07/01/23 at 2115, Routine [facility] ondansetron (ZOFRAN (PF)) injection 4 mg 2022-07 03:00: 00 07-02 02:03 :00 No 4mg 4 mg, Slow IV Push, ONCE, 1 dose, On Sat07/01/23 at 2100, [facility] NaCl 0.9% (NS) bolus infusion 1,000 mL 2022-07 03:00: 00 07-02 04:10 :00 No 1000mL at 999 mL/hr, 1,000 mL, IV Infusion, ONCE, 1 dose, On Sat07/01/23 at 2100, STAT [facility] dicyclomine 20 mg tablet 2022-07 00:00: 00 Yes [id number] 20mg Take 1 tablet by mouth 4 (four) times daily. [facility] ondansetron 4 mg disintegrat ing tablet 2022-07 00:00: 00 Yes [id number] 4mg Take 1 tablet by mouth every 4 (four) hours as needed for Nausea and Vomiting (N/V). [facility] Alprazolam 1 MG oral Tablet 2022-07 00:00: 00 12-12 00:00 :00 No [id number] 2mg Take 2 tablets (2 mg total) by mouth 2 times daily. Kellee pinedo Pantoprazol e Sodium 20 MG oral Tablet Delayed Response 2022-07 00:00: 00 12-02 00:00 :00 No Take by mouth. Kellee pinedo ketorolac (TORADOL) injection 15 mg 2022-07 01:00: 00 05-10 00:09 :00 No 15mg 15 mg, Slow IV Push, ONCE, 1 dose, On Sat05/09/23 at 2000, [facility] proCHLORper azine (COMPAZINE) injection 5 mg 2022-07 23:30: 00 05-09 22:48 :00 No 5mg 5 mg, Slow IV Push, ONCE, 1 dose, On Sat05/09/23 at 1830, [facility] diphenhydrA MINE (BENADRYL) injection 25 mg 2022-07 22:45: 00 05-09 22:48 :00 No 25mg 25 mg, Slow IV Push, ONCE, 1 dose, On Sat05/09/23 at 1745, STAT [facility] HYDROcodone -acetaminop hen (NORCO) 10-325 mg tablet 1 tablet 2022-07 0-25 02:00: 00 05-01 01:04 :00 No 1{tbl} 1 tablet, Oral, ONCE, 1 dose, On Sat04/30/23 at 2100, Routine [facility] iopamidol (ISOVUE 370-500 mL) injection 100 mL 2022-07 00:45: 00 05-01 00:45 :00 No [id number] 100mL 100 mL, Intravenou s, ONCE, 1 dose, On Sat04/30/23 at 1945, Routine [facility] NaCl 0.9% (NS) bolus infusion 1,000 mL 2022-07 00:00: 00 05-01 00:45 :00 No 1000mL at 999 mL/hr, 1,000 mL, IV Piggyback, ONCE, 1 dose, On Sat04/30/23 at 1900, STAT [facility] proCHLORper azine (COMPAZINE) injection 5 mg 2022-07 23:45: 00 04-30 23:09 :00 No 5mg 5 mg, Slow IV Push, ONCE, 1 dose, On Sat04/30/23 at 1845, ROSELYN [facility] diphenhydrA MINE (BENADRYL) injection 25 mg 2022-07 23:00: 00 04-30 23:09 :00 No 25mg 25 mg, Slow IV Push, ONCE, 1 dose, On Sat04/30/23 at 1800, STAT [facility] dicyclomine 20 mg tablet 2022-07 00:00: 00 07-01 00:00 :00 No [id number] 20mg Take 1 tablet by mouth 4 (four) times daily. [facility] acetaminoph en (TYLENOL) tablet 1,000 mg 2022-07 02:45: 00 04-17 02:43 :00 No 1000mg 1,000 mg, Oral, ONCE, 1 dose, On Sat04/16/23 [facility] 2145[facility] ([facility]AN (PF)) [facility] 4 mg 2022-07 0- 03:15: 00 04-09 02:13 :00 No 4mg 4 mg, Slow IV Push, ONCE, 1 dose, On Sat04/08/23 at 2215, ROSELYN [facility] dicyclomine (BENTYL) tablet 20 mg 2022-07 03:15: 00 04-09 02:16 :00 No 20mg 20 mg, Oral, ONCE, 1 dose, On Sat04/08/23 at 2215, Routine [facility] ondansetron (ZOFRAN (PF)) injection 4 mg 2022-07 23:45: 00 04-08 23:16 :00 No 4mg 4 mg, Slow IV Push, ONCE, 1 dose, On Sat04/08/23 at 1845, ROSELYN [facility] morpHINE (2 mg/mL) injection 4 mg 2022-07 23:45: 00 04-08 23:45 :00 No 4mg 4 mg, Slow IV Push, ONCE, 1 dose, On Sat04/08/23 at 1845, STAT [facility] ondansetron 4 mg disintegrat ing tablet 2022-07 00:00: 00 07-01 00:00 :00 No [id number] 4mg Take 1 tablet by mouth every 8 (eight) hours as needed for Nausea and Vomiting (N/V). [facility] dicyclomine 20 mg tablet 2022-07 00:00: 00 04-30 00:00 :00 No [id number] 20mg Take 1 tablet by mouth 4 (four) times daily. [facility] acetaminoph en (TYLENOL) tablet 1,000 mg 03-10 04:30: 00 03-10 04:29 :00 No 1000mg 1,000 mg, Oral, ONCE, 1 dose, On 03/09/23 at 2330, ROSELYN [facility] iopamidol (ISOVUE 370-500 mL) injection 85 mL 03-10 04:30: 00 03-10 04:30 :00 No [id number] 85mL 85 mL, Intravenou s, ONCE, 1 dose, On 03/09/23 at 2330, Routine [facility] FENTanyl PF (SUBLIMAZE (PF)) injection 75 mcg 03-10 04:00: 00 03-10 02:58 :00 No 75ug 75 mcg, Slow IV Push, ONCE, 1 dose, On 03/09/23 at 2300, STAT [facility] NaCl 0.9% (NS) IV infusion 1,000 mL 03-10 03:00: 00 Yes 1000mL at 20 mL/hr, IV Infusion, CONTINUOUS , Starting on 03/09/23 at 2200, Until Discontinu ed, Routine [facility] ondansetron (ZOFRAN (PF)) injection 4 mg 03-10 02:00: 00 03-10 02:01 :00 No 4mg 4 mg, Slow IV Push, ONCE, 1 dose, On 03/09/23 at 2100, ROSELYN [facility] morpHINE (4 mg/mL) injection 4 mg 03-10 02:00: 00 03-10 02:01 :00 No 4mg 4 mg, Slow IV Push, ONCE, 1 dose, On 03/09/23 at 2100, STAT [facility] polyethylen e glycol 3350 (MIRALAX) 17 gram powder 03-09 00:00: 00 Yes [id number] 1{packe t} Take 1 Packet by mouth once daily as needed for Constipati on. [facility] Simethicone 125 mg 03-09 00:00: 00 Yes [id number] 125mg Take 1 capsule by mouth after meals and at bedtime as needed for Gas. [facility] iopamidol (ISOVUE 370-500 mL) injection 100 mL 03-02 06:15: 00 03-02 06:15 :00 No [id number] 100mL 100 mL, Intravenou s, ONCE, 1 dose, On 03/02/23 at 0115, Routine [facility] NaCl 0.9% (NS) IV infusion 1,000 mL 03-02 05:15: 00 Yes 1000mL at 999 mL/hr, Intravenou s, CONTINUOUS , Starting on 03/02/23 at 0015, Until Discontinu ed, Routine [facility] ketorolac (TORADOL) injection 30 mg 03-02 05:15: 00 03-02 04:20 :00 No 30mg 30 mg, Slow IV Push, ONCE, 1 dose, On 03/02/23 at 0015, Routine [facility] ondansetron (ZOFRAN (PF)) injection 4 mg 03-02 05:00: 00 03-02 05:24 :00 No 4mg 4 mg, Slow IV Push, ONCE, 1 dose, On 03/02/23 at 0000, ROSELYN [facility] morpHINE (4 mg/mL) injection 4 mg 03-02 05:00: 00 03-02 05:24 :00 No 4mg 4 mg, Slow IV Push, ONCE, 1 dose, On 03/02/23 at 0000, STAT [facility] ondansetron (ZOFRAN (PF)) injection 4 mg 03-02 04:15: 00 03-02 04:21 :00 No 4mg 4 mg, Slow IV Push, ONCE, 1 dose, On Sat03/01/23 at 2315, [facility] On[facility] 4 MG oral Tablet 03-02 00:00: 00 Yes [id number] 4mg [id number] 3D Take 1 tablet (4 mg total) by mouth every 8 hours as needed. Kellee pinedo dicyclomine 20 mg tablet 03-02 00:00: 00 04-30 00:00 :00 No [id number] 20mg Take 1 tablet by mouth every 6 (six) hours as needed for Abdominal pain. [facility] metoclopram tracy HCl (REGLAN) injection 10 mg 02-18 06:45: 00 02-18 06:43 :00 No 10mg 10 mg, Slow IV Push, ONCE, 1 dose, On Sat02/18/23 at 0145, ROSELYN [facility] morpHINE (4 mg/mL) injection 4 mg 02-18 05:30: 00 02-18 05:28 :00 No 4mg 4 mg, Slow IV Push, ONCE, 1 dose, On Sat02/18/23 at 0030, STAT [facility] ondansetron (ZOFRAN (PF)) injection 4 mg 02-18 05:30: 00 02-18 05:28 :00 No 4mg 4 mg, Slow IV Push, ONCE, 1 dose, On Sat02/18/23 at 0030, ROSELYN [facility] NaCl 0.9% (NS) bolus infusion 1,000 mL 02-18 05:30: 00 02-18 05:15 :00 No 1000mL at 999 mL/hr, 1,000 mL, IV Infusion, ONCE, 1 dose, On Sat02/18/23 at 0030, STAT [facility] proMETHazin e (PHENERGAN) 25 mg in NaCl 0.9% (NS) 50 mL IV piggyback 02-18 04:30: 00 02-18 04:28 :00 No 25mg 25 mg, IV Piggyback, ONCE, 1 dose, On Sat02/17/23 at 2330, [facility] proMETHazin e 25 mg tablet 02-18 00:00: 00 Yes [id number] 25mg Take 1 tablet by mouth every 6 (six) hours as needed for Nausea and Vomiting (N/V). [facility] escitalopra m oxalate (LEXAPRO) 5 mg tablet 02-17 16:23: 24 Yes 10mg Take 2 tablets by mouth at bedtime. [facility] topiramate (TOPAMAX) 200 mg tablet 02-17 16:23: 24 Yes 200mg Take 1 tablet by mouth every evening. [facility] bupropion HCl (WELLBUTRIN ORAL) 02-17 16:23: 24 Yes 150mg Take 150 mg by mouth every morning. [facility] OLANZapine (ZYPREXA) 15 mg tablet 02-17 16:23: 24 Yes 15mg Take 1 tablet by mouth every evening. [facility] ALPRAZOLAM ORAL 02-17 16:23: 24 Yes 2mg Take 2 mg by mouth in the morning and 2 mg in the evening. [facility] melatonin 10 mg Tab 02-17 16:23: 24 Yes 1{tbl} Take 1 tablet by mouth at bedtime. [facility] trazodone HCl (TRAZODONE ORAL) 02-17 16:23: 24 Yes 400mg Take 400 mg by mouth at bedtime. [facility] lactated ringers IV infusion 1,000 mL 02-17 02:15: 00 02-17 22:14 :00 No 1000mL at 100 mL/hr, 1,000 mL, IV Infusion, CONTINUOUS , Starting on 02/16/23 at 2115, Until 02/17/23 at 1714, Routine [facility] traZODone (DESYREL) tablet 400 mg 02-17 02:00: 00 Yes 400mg 400 mg, Oral, QHS, First dose on 02/16/23 at 2100, Until Discontinu ed [facility] melatonin (MELATIN) tablet 9 mg 02-17 02:00: 00 Yes 9mg 9 mg, Oral, QHS, First dose on 02/16/23 at 2100, Until Discontinu ed [facility] morpHINE (2 mg/mL) injection 2 mg 02-17 01:07: 50 03-01 01:06 :50 No 2mg 2 mg, Slow IV Push, Q4HPRN, Starting on 02/16/23 at 2006, Until Esperanza 02/28/23 at 2005, Routine, Pain (scale 7-10) [facility] OLANZapine (ZyPREXA) tablet 15 mg 02-16 22:00: 00 Yes 15mg 15 mg, Oral, QPM, First dose on 02/16/23 at 1700, Until Discontinu ed, Routine [facility] buPROPion XL (WELLBUTRIN XL) tablet 150 mg 02-16 14:00: 00 Yes 150mg 150 mg, Oral, DAILY, First dose on 02/16/23 at 0900, Until Discontinu ed [facility] enoxaparin (LOVENOX) injection 40 mg 02-16 14:00: 00 Yes 40mg 40 mg, Subcutaneo us, DAILY, First dose on Sat02/16/23 at 0900, Until Discontinu ed, Routine [facility] methocarbam oL (ROBAXIN) tablet 500 mg 02-16 06:04: 59 Yes 500mg 500 mg, Oral, Q6HPRN, Starting on 02/16/23 at 0104, Until Discontinu ed, Routine, Muscle Spasms [facility] ALPRAZolam (XANAX) tablet 2 mg 02-16 06:03: 54 Yes 2mg 2 mg, Oral, TIDPRN, Starting on 02/16/23 at 0103, Until Discontinu ed, Anxiety [facility] lactated ringers IV infusion 1,000 mL 02-16 03:15: 00 02-16 23:14 :00 No 1000mL at 100 mL/hr, 1,000 mL, IV Infusion, CONTINUOUS , Starting on Sat02/15/23 at 2215, Until 02/16/23 at 1814, Routine [facility] morpHINE (2 mg/mL) injection 2 mg 02-16 03:07: 02 02-17 01:08 :14 No 2mg 2 mg, Slow IV Push, Q4HPRN, Starting on Sat02/15/23 at 2207, Until 02/16/23 at 2008, Routine, Pain (scale 7-10) [facility] traMADoL (ULTRAM) tablet 50 mg 02-16 03:06: 59 02-18 03:05 :59 No 50mg 50 mg, Oral, Q8HPRN, Starting on Sat02/15/23 at 2206, Until Sat02/17/23 at 2205, Routine, Pain (scale 4-6) [facility] acetaminoph en (TYLENOL) tablet 1,000 mg 02-16 03:06: 50 Yes 1000mg 1,000 mg, Oral, Q6HPRN, Starting on Sat02/15/23 at 2206, Until Discontinu ed, Routine, Pain (scale 1-3), Temp > 38 C [facility] ALPRAZolam (XANAX) 1 mg tablet 02-16 01:09: 19 02-15 00:00 :00 No 1mg Take 1 tablet by mouth in the morning and 1 tablet in the evening. [facility] iopamidol (ISOVUE 370-500 mL) injection 80 mL 02-16 00:30: 00 02-16 00:30 :00 No [id number] 80mL 80 mL, Intravenou s, ONCE, 1 dose, On Sat02/15/23 at 1930, Routine [facility] lactated ringers IV infusion 1,000 mL 02-16 00:00: 00 02-16 03:07 :30 No [id number] 1000mL at 500 mL/hr, 1,000 mL, IV Infusion, CONTINUOUS , Starting on Sat02/15/23 at 1900, Until Sat02/15/23 at 2207, ROSELYN [facility] FENTanyl PF (SUBLIMAZE (PF)) injection 75 mcg 02-15 23:45: 00 02-15 23:13 :00 No [id number] 75ug 75 mcg, Slow IV Push, ONCE, 1 dose, On Sat02/15/23 at 1845, Routine [facility] dicyclomine (BENTYL) injection 20 mg 02-15 22:15: 00 02-15 21:46 :00 No [id number] 20mg 20 mg, Intramuscu lar, ONCE NOW, 1 dose, On Sat02/15/23 at 1715, Routine [facility] LORazepam (ATIVAN) injection 1 mg 02-15 21:45: 00 02-15 21:46 :00 No [id number] 1mg 1 mg, Slow IV Push, ONCE, 1 dose, On Sat02/15/23 at 1645, STAT [facility] ondansetron (ZOFRAN (PF)) injection 4 mg 02-15 21:45: 00 02-15 21:46 :00 No [id number] 4mg 4 mg, Slow IV Push, ONCE, 1 dose, On Sat02/15/23 at 1645, ROSELYN [facility] HYDROcodone -acetaminop hen (NORCO) 10-325 mg tablet 1 tablet 02-15 20:15: 00 02-15 19:52 :00 No [id number] 1{tbl} 1 tablet, Oral, ONCE, 1 dose, On Sat02/15/23 at 1515, Routine [facility] Melatonin 1 mg tablet 02-15 20:08: 23 02-15 00:00 :00 No 10mg Take 10 tablets by mouth every evening. [facility] trazodone HCl (DESYREL ORAL) 02-15 20:06: 33 02-15 00:00 :00 No 200mg Take 200 mg by mouth every evening. [facility] OLANZapine (ZYPREXA) 2.5 mg tablet 02-15 20:05: 48 02-15 00:00 :00 No 2.5mg Take 1 tablet by mouth in the morning and 1 tablet in the evening. [facility] hydrOXYzine (VISTARIL) 50 mg capsule 02-15 20:03: 04 02-15 00:00 :00 No 50mg Take 1 capsule by mouth every 4 (four) hours as needed for Itching. q 4-6 hours as needed [facility] dicyclomine (BENTYL) tablet 20 mg 02-15 19:30: 00 02-15 19:52 :00 No [id number] 20mg 20 mg, Oral, ONCE, 1 dose, On Sat02/15/23 at 1430, ROSELYN [facility] ibuprofen (IBU) tablet 800 mg 02-15 19:30: 00 02-15 19:52 :00 No [id number] 800mg 800 mg, Oral, ONCE, 1 dose, On Sat02/15/23 at 1430, ROSELYN [facility] losartan 50 mg tablet 02-15 13:44: 36 02-15 00:00 :00 No 50mg Take 1 tablet by mouth in the morning. [facility] Weed-3-DHA -EPA-Fish Oil (FISH OIL) 1,000 mg (120 mg-180 mg) Cap 02-15 13:44: 15 02-15 00:00 :00 No 1000mg Take 1,000 mg by mouth daily. [facility] methocarbam oL 750 mg tablet 02-15 13:43: 47 02-15 00:00 :00 No 750mg Take 750 mg by mouth 3 (three) times daily. [facility] FENTanyl PF (SUBLIMAZE (PF)) injection 50 mcg 01-10 00:45: 00 01-09 23:46 :00 No 50ug 50 mcg, Slow IV Push, ONCE, 1 dose, On Sat01/09/22 at 1945, Routine [facility] ketorolac (TORADOL) injection 30 mg 01-09 23:45: 00 01-09 22:48 :00 No 30mg 30 mg, Slow IV Push, ONCE, 1 dose, On Sat01/09/22 at 1845, Routine [facility] aspirin chewable tablet 243 mg 12-14 14:00: 00 Yes 243mg 243 mg, Oral, DAILY, First dose on Sat12/14/21 at 0900, Until Discontinu ed, Routine [facility] ketorolac (TORADOL) injection 15 mg 12-14 08:15: 00 12-14 07:11 :00 No 15mg 15 mg, Slow IV Push, ONCE, 1 dose, On Sat12/14/21 at 0315, ROSELYN [facility] morpHINE (4 mg/mL) injection 4 mg 12-14 05:45: 00 12-14 04:52 :00 No 4mg 4 mg, Slow IV Push, ONCE, 1 dose, On 12/14/22 at 0045, STAT [facility] cefTRIAXone (ROCEPHIN) 1,000 mg in NaCl 0.9% (NS) 50 mL MINI-BAG 12-14 05:45: 00 12-14 05:30 :00 No 1000mg 1,000 mg, IV Piggyback, ONCE, 1 dose, On [place] 12/14/21 at 0045, Administer over 30 Minutes, 50 mL
Reas on for Anti-Infec tive: Documented Infection< br>Documen kaushik Infection Site: Urine
D uration of Therapy: Other (see Comments) [facility] NaCl 0.9% (NS) bolus infusion 1,000 mL 12-14 05:45: 00 12-14 07:20 :00 No 1000mL at 999 mL/hr, 1,000 mL, IV Infusion, ONCE, 1 dose, On [place] 12/14/21 at 0045, ROSELYN [facility] ondansetron (ZOFRAN (PF)) injection 4 mg 12-14 04:45: 00 12-14 03:50 :00 No 4mg 4 mg, Slow IV Push, ONCE, 1 dose, On Sat12/13/21 at 2345, ROSELYN [facility] FENTanyl PF (SUBLIMAZE (PF)) injection 50 mcg 12-14 04:45: 00 12-14 03:50 :00 No 50ug 50 mcg, Slow IV Push, ONCE, 1 dose, On Sat12/13/21 at 2345, Routine [facility] ALPRAZolam (XANAX) 1 mg tablet 12-14 02:22: 13 Yes 1mg Take 1 mg by mouth 2 (two) times daily. [facility] naproxen 500 mg tablet 12-14 00:00: 00 02-15 00:00 :00 No [id number] 500mg Take 1 tablet by mouth 2 (two) times daily with meals. [facility] cefpodoxime 200 mg tablet 12-14 00:00: 12-22 04:59 :00 No [id number] 200mg Take 1 tablet by mouth 2 (two) times daily for 7 days. [facility] LORazepam (ATIVAN) injection 1 mg 11-12 05:00: 00 11-12 04:01 :00 No 1mg 1 mg, Slow IV Push, ONCE, 1 dose, On 11/12/21 at 0000, STAT [facility] ketorolac (TORADOL) injection 30 mg 11-12 03:30: 00 11-12 02:26 :00 No 30mg 30 mg, Slow IV Push, ONCE, 1 dose, On 11/11/21 at 2230, Routine
manufacturing team member approving Restricted medication : DEE WANG [facility] nitroglycer in (NITROSTAT) sublingual tablet 0.4 mg 11-12 03:30: 00 11-12 02:26 :00 No .4mg 0.4 mg, Sublingual , ONCE, 1 dose, On 11/11/21 at 2230, ROSELYN [facility] aspirin E.C. (ECOTRIN) tablet 325 mg 11-12 03:30: 00 11-12 02:25 :00 No 325mg 325 mg, Oral, ONCE, 1 dose, On 11/11/21 at 2230, STAT [facility] morpHINE (4 mg/mL) injection 4 mg 11-12 02:30: 00 11-12 01:40 :00 No 4mg 4 mg, Slow IV Push, ONCE, 1 dose, On 11/11/21 at 2130, STAT [facility] ondansetron (ZOFRAN (PF)) injection 4 mg 11-12 02:30: 00 11-12 01:40 :00 No 4mg 4 mg, Slow IV Push, ONCE, 1 dose, On 11/11/21 at 2130, [facility] NaCl 0.9% (NS) bolus infusion 1,000 mL 11-12 02:30: 00 11-12 02:30 :00 No 1000mL at 999 mL/hr, 1,000 mL, IV Infusion, ONCE, 1 dose, On Sat11/11/21 at 2130, ROSELYN [facility] hydrOXYzine 50 mg tablet 11-11 00:00: 00 Yes [id number] 50mg Take 1 tablet by mouth every 8 (eight) hours as needed for Anxiety. 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
manufacturing team member approving Restricted medication : DEE WANG [facility] cefTRIAXone (ROCEPHIN) 1,000 mg in NaCl 0.9% (NS) 50 mL MINI-BAG 09-12 03:45: 00 09-12 03:41 :00 No 1000mg 1,000 mg, IV Piggyback, ONCE, 1 dose, On Sat09/11/21 at 2145, Administer over 30 Minutes, 50 mL
Reas on for Anti-Infec tive: Documented Infection< br>Documen kaushik Infection Site: Urine
D uration of Therapy: 7 days [facility] ondansetron (ZOFRAN (PF)) injection 4 mg 09-12 03:15: 00 09-12 02:39 :00 No 4mg 4 mg, Slow IV Push, ONCE, 1 dose, On Sat09/11/21 at 2115, ROSELYN [facility] morpHINE injection 4 mg 09-12 03:15: 00 09-12 02:39 :00 No 4mg 4 mg, Slow IV Push, ONCE, 1 dose, On Sat09/11/21 at 2115, STAT [facility] iopamidol (ISOVUE 370-500 mL) injection 120 mL 09-12 02:45: 00 09-12 03:00 :00 No [id number] 120mL 120 mL, Intravenou s, ONCE, 1 dose, On Sat09/11/21 at 2100, Routine [facility] sodium chloride (NS) injection 5 mL 09-12 01:33: 26 Yes 5mL 5 mL, Intravenou s, PRN, Starting on Sat09/11/21 at 1933, Until Discontinu ed, Routine, IV line flushing [facility] ibuprofen 600 mg tablet 09-11 00:00: 00 02-15 00:00 :00 No [id number] 600mg Take 1 tablet by mouth every 6 (six) hours as needed for Pain (scale 4-6). [facility] cefdinir 300 mg capsule 09-11 00:00: 00 09-19 04:59 :00 No [id number] 300mg Take 1 capsule by mouth 2 (two) times daily for 7 days. [facility] HYDROcodone -acetaminop hen (NORCO) 10-325 mg tablet 1 tablet 08-15 09:00: 00 08-15 07:59 :00 No 1{tbl} 1 tablet, Oral, ONCE, 1 dose, On Sat08/15/21 at 0300, Routine [facility] FENTanyl PF (SUBLIMAZE (PF)) injection 75 mcg 08-15 07:30: 00 08-15 06:42 :00 No 75ug 75 mcg, Intramuscu lar, ONCE, 1 dose, On Sat08/15/21 at 0130, Routine [facility] methocarbam oL (ROBAXIN) 500 mg tablet 08-15 00:00: 00 Yes [id number] 500mg Take 1 tablet by mouth every 6 (six) hours as needed for Pain (scale 7-10) (MUSCLE SPASM). [facility] traMADoL (ULTRAM) 50 mg tablet 08-15 00:00: 00 Yes [id number] 50mg Take 1 tablet by mouth every 6 (six) hours as needed for Pain (scale 7-10). Indication s: acute pain [facility] Nitrofurant oin&Nit. Macrocryst (MACROBID) 100 mg capsule 2022-0 2-08 00:00: 00 02-15 00:00 :00 No [id number] 100mg Take 1 capsule by mouth 2 (two) times daily. [facility] morpHINE injection 4 mg 2020-07 08:30: 00 05-28 07:50 :00 No 4mg 4 mg, Slow IV Push, ONCE, 1 dose, On 05/28/21 at 0230, ROSELYN [facility] maalox:diph enhydrAMINE :lidocaine 2 % viscous 1:1:1 ([facility]) oral suspension 15 mL 2020-07 08:00: 00 05-28 07:04 :00 No 15mL 15 mL, Oral, ONCE, 1 dose, On 05/28/21 at 0200, Routine [facility] FENTanyl PF (SUBLIMAZE (PF)) injection 50 mcg 2020-07 07:00: 00 05-28 06:02 :00 No 50ug 50 mcg, Slow IV Push, ONCE, 1 dose, On 05/28/21 at 0100, STAT [facility] famotidine (PEPCID (PF)) injection 20 mg 2020-07 07:00: 00 05-28 06:01 :00 No 20mg 20 mg, Slow IV Push, ONCE, 1 dose, On 05/28/21 at 0100, ROSELYN [facility] famotidine 20 mg tablet 2020-07 00:00: 00 06-13 05:59 :00 No [id number] 20mg Take 1 tablet by mouth 2 (two) times daily for 15 days. [facility] escitalopra m oxalate (LEXAPRO) tablet 10 mg 2020-07 003 02:00: 00 Yes 10mg 10 mg, Oral, QHS, First dose on 04/08/21 at 2100, Until Discontinu ed, Routine [facility] aspirin 81 mg chewable tablet 2020-07 0-03 00:00: 00 05-10 04:59 :00 No [id number] 81mg Take 1 tablet by mouth daily for 30 days. [facility] traZODone (DESYREL) tablet 200 mg 2020-07 22:00: 00 Yes 200mg 200 mg, Oral, QPM, First dose on 04/08/21 at 1700, Until Discontinu ed [facility] topiramate (TOPAMAX) tablet 200 mg 2020-07 22:00: 00 Yes 200mg 200 mg, Oral, QPM, First dose on 04/08/21 at 1700, Until Discontinu ed, Routine
manufacturing team member approving Restricted medication : ALEXEY ALEGRE [facility] OLANZapine (ZyPREXA) tablet 15 mg 2020-07 22:00: 00 Yes 15mg 15 mg, Oral, QPM, First dose on 04/08/21 at 1700, Until Discontinu ed, Routine [facility] melatonin (MELATIN) tablet 9 mg 2020-07 22:00: 00 Yes 9mg 9 mg, Oral, QPM, First dose on 04/08/21 at 1700, Until Discontinu ed [facility] methocarbam oL 750 mg tablet 2020-07 17:45: 33 Yes 750mg Take 750 mg by mouth 3 (three) times daily. [facility] Weed-3-DHA -EPA-Fish Oil (FISH OIL) 1,000 mg (120 mg-180 mg) Cap 2020-07 17:45: 33 Yes 1000mg Take 1,000 mg by mouth daily. [facility] hydrOXYzine (VISTARIL) 50 mg capsule 2020-07 17:45: 33 Yes 50mg Take 50 mg by mouth every 4 (four) hours as needed for Itching. q 4-6 hours as needed [facility] losartan 50 mg tablet 2020-07 17:45: 33 Yes 50mg Take 50 mg by mouth daily. [facility] trazodone HCl (DESYREL ORAL) 2020-07 17:45: 33 Yes 200mg Take 200 mg by mouth every evening. [facility] escitalopra m oxalate (LEXAPRO) 5 mg tablet 2020-07 17:45: 33 Yes 10mg Take 10 mg by mouth at bedtime. [facility] Melatonin 1 mg tablet 2020-07 17:45: 33 Yes 10mg Take 10 mg by mouth every evening. [facility] topiramate (TOPAMAX) 200 mg tablet 2020-07 17:45: 33 Yes 200mg Take 200 mg by mouth every evening. [facility] bupropion HCl (WELLBUTRIN ORAL) 2020-07 17:45: 33 Yes 150mg Take 150 mg by mouth every morning. [facility] OLANZapine (ZYPREXA) 15 mg tablet 2020-07 17:45: 33 Yes 15mg Take 15 mg by mouth every evening. [facility] OLANZapine (ZYPREXA) 2.5 mg tablet 2020-07 17:45: 33 Yes 2.5mg Take 2.5 mg by mouth 2 (two) times daily. [facility] furosemide (LASIX) injection 20 mg 2020-07 14:30: 00 Yes 20mg 20 mg, Slow IV Push, Q12H, First dose on 04/08/21 at 0930, Until Discontinu ed, Routine [facility] losartan (COZAAR) tablet 50 mg 2020-07 14:00: 00 Yes 50mg 50 mg, Oral, DAILY, First dose on 04/08/21 at 0900, Until Discontinu ed, Routine [facility] buPROPion XL (WELLBUTRIN XL) tablet 150 mg 2020-07 14:00: 00 Yes 150mg 150 mg, Oral, DAILY, First dose on 04/08/21 at 0900, Until Discontinu ed [facility] aspirin chewable tablet 81 mg 2020-07 14:00: 00 Yes 81mg 81 mg, Oral, DAILY, First dose on 04/08/21 at 0900, Until Discontinu ed, Routine [facility] enoxaparin (LOVENOX) injection 40 mg 2020-07 14:00: 00 Yes 40mg 40 mg, Subcutaneo us, DAILY, First dose on 10/2/21 at 0900, Until Discontinu ed, Routine [facility] OLANZapine (ZyPREXA) tablet 2.5 mg 2020-07 13:00: 00 Yes 2.5mg 2.5 mg, Oral, BID, First dose on Sat04/08/21 at 0800, Until Discontinu ed, Routine [facility] methocarbam oL (ROBAXIN) tablet 750 mg 2020-07 13:00: 00 Yes 750mg 750 mg, Oral, TID, First dose on Sat04/08/21 at 0800, Until Discontinu ed, Routine [facility] LORazepam (ATIVAN) injection 0.5 mg 2020-07 04:07: 43 Yes .5mg 0.5 mg, Slow IV Push, PRN, 2 doses, Starting on Sat04/07/21 at 2307, Until Discontinu ed, Routine, Anxiety [facility] hydrOXYzine (ATARAX) tablet 50 mg 2020-07 02:51: 23 Yes 50mg 50 mg, Oral, Q4HPRN, Starting on Sat04/07/21 at 2151, Until Discontinu ed, Itching [facility] LORazepam (ATIVAN) tablet 0.5 mg 2020-07 02:05: 29 Yes .5mg 0.5 mg, Oral, PRN, 2 doses, Starting on Sat04/07/21 at 2105, Until Discontinu ed, Routine, Anxiety [facility] morpHINE injection 4 mg 2020-07 00:00: 00 04-07 22:58 :00 No 4mg 4 mg, Slow IV Push, ONCE, 1 dose, On Sat04/07/21 at 1900, STAT [facility] ondansetron (ZOFRAN (PF)) injection 4 mg 2020-07 0 00:00: 00 04-07 22:56 :00 No 4mg 4 mg, Slow IV Push, ONCE, 1 dose, On Sat04/07/21 at 1900, ROSELYN [facility] morpHINE injection 4 mg 2020-07 23:58: 03 04-08 23:57 :03 No 4mg 4 mg, Slow IV Push, Q4HPRN, Starting on Sat04/07/21 at 1858, Until 04/08/21 at 1857, Routine, Pain (scale 7-10) [facility] HYDROcodone -acetaminop hen (NORCO 5) 5-325 mg tablet 1 tablet 2020-07 23:58: 00 04-09 23:57 :00 No 1{tbl} 1 tablet, Oral, Q6HPRN, Starting on Sat04/07/21 at 1858, Until 04/09/21 at 1857, Routine, Pain (scale 4-6) [facility] acetaminoph en (TYLENOL) tablet 650 mg 2020-07 23:57: 57 Yes 650mg 650 mg, Oral, Q6HPRN, Starting on Sat04/07/21 at 1857, Until Discontinu ed, Routine, Pain (scale 1-3) [facility] aspirin tablet 325 mg 2020-07 23:00: 00 04-07 21:56 :00 No 325mg 325 mg, Oral, ONCE, 1 dose, On Sat04/07/21 at 1800, STAT [facility] nitroglycer in (NITROSTAT) sublingual tablet 0.4 mg 2020-07 21:51: 01 04-07 22:46 :00 No .4mg 0.4 mg, Sublingual , Q5MIN PRN, 3 doses, Starting on Sat04/07/21 at 1651, Until Discontinu ed, ROSELYN, Chest pain [facility] fluconazole (DIFLUCAN) tablet 150 mg 01-12 14:00: 00 Yes 150mg 150 mg, Oral, DAILY, First dose on [place] 01/12/21 at 0900, Until Discontinu ed, ROSELYN
Re ason for Anti-Infec tive: Empiric Therapy for Suspected Infection< br>Empiric Therapy Site: HEENT
D uration of therapy: 72 hours [facility] cefTRIAXone (ROCEPHIN) 1,000 mg in NaCl 0.9% (NS) 50 mL MINI-BAG 01-12 10:15: 00 01-12 09:49 :00 No 1000mg 1,000 mg, IV Piggyback, ONCE, 1 dose, [place] 01/12/21 at 0515, 50 mL
Reas on for Anti-Infec tive: Empiric Therapy for Suspected Infection< br>Empiric Therapy Site: Urine
D uration of therapy: 72 hours [facility] hydrOXYzine (ATARAX) tablet 25 mg 01-12 10:15: 00 01-12 09:18 :00 No 25mg 25 mg, Oral, ONCE, 1 dose, [place] 01/12/21 at 0515, ROSELYN [facility] HYDROcodone -acetaminop hen (NORCO) 10-325 mg tablet 1 tablet 01-12 10:15: 00 01-12 09:18 :00 No 1{tbl} 1 tablet, Oral, ONCE, 1 dose, [place] 01/12/21 at 0515, Routine [facility] maalox:diph enhydrAMINE :lidocaine2 %viscous 1:1:1: suspension (COMPOUNDED ) 01-12 09:30: 00 01-12 08:25 :00 No 15mL 15 mL, Oral, ONCE, 1 dose, [place] 01/12/21 at 0430, Routine [facility] cephALEXin (KEFLEX) 500 mg capsule 01-12 00:00: 00 04-07 00:00 :00 No [id number] 500mg Take 1 capsule by mouth 3 (three) times daily. [facility] HYDROcodone -acetaminop hen (NORCO 5) 5-325 mg tablet 1 tablet 12-11 02:00: 00 12-11 01:29 :00 No 1{tbl} 1 tablet, Oral, ONCE, 1 dose, 12/10/20 at 2100, ROSELYN [facility] LORazepam (ATIVAN) injection 1 mg 12-11 00:30: 00 12-10 23:36 :00 No 1mg 1 mg, Slow IV Push, ONCE, 1 dose, 12/10/20 at 1930, STAT [facility] ketorolac (TORADOL) injection 30 mg 12-11 00:30: 00 12-10 23:36 :00 No 30mg 30 mg, Slow IV Push, ONCE, 1 dose, 12/10/20 at 1930, ROSELYN
Fa culty member approving Restricted medication : EMERGENCY ROOM, [facility] ondansetron (ZOFRAN (PF)) injection 4 mg 12-10 23:45: 00 12-10 22:46 :00 No 4mg 4 mg, Slow IV Push, ONCE, 1 dose, 12/10/20 at 1845, [facility] NaCl 0.9% (NS) bolus infusion 2,000 mL 12-10 22:45: 00 12-11 01:29 :00 No 2000mL at 999 mL/hr, 2,000 mL, IV Infusion, ONCE, 1 dose, 12[facility]10/20 [facility] 1745[facility] mg tablet 12-10 00:00: 00 04-07 00:00 :00 No [id number] 12.5mg Take 0.5 tablets by mouth every 6 (six) hours as needed for N/V unresponsi ve to Ondansetro n. [facility] morpHINE injection 4 mg 12-04 22:30: 00 12-04 21:37 :00 No 4mg 4 mg, Slow IV Push, ONCE, 1 dose, 12/04/20 at 1730, STAT [facility] losartan 50 mg tablet 12-04 22:03: 53 Yes 50mg Take 50 mg by mouth daily. [facility] LORazepam (ATIVAN) tablet 1 mg 12-04 21:45: 00 12-04 20:44 :00 No 1mg 1 mg, Oral, ONCE, 1 dose, 12/04/20 at 1645, ROSELYN [facility] ondansetron (ZOFRAN (PF)) injection 4 mg 12-04 21:15: 00 12-04 20:22 :00 No 4mg 4 mg, Slow IV Push, ONCE, 1 dose, [place] 12/04/20 at 1615, ROSELYN [facility] morpHINE injection 4 mg 12-04 21:15: 00 12-04 20:21 :00 No 4mg 4 mg, Slow IV Push, ONCE, 1 dose, [place] 12/04/20 at 1615, STAT [facility] ALPRAZolam (XANAX) 2 mg tablet 11-04 04:24: 19 11-03 00:00 :00 No 2mg Take 2 mg by mouth at bedtime. [facility] LORazepam (ATIVAN) injection 1 mg 11-04 04:00: 00 11-04 02:57 :00 No 1mg 1 mg, Slow IV Push, ONCE, 1 dose, [facility] 11/03/20 at 2300, STAT [facility] LORazepam (ATIVAN) tablet 1 mg 11-04 04:00: 00 11-04 02:57 :00 No 1mg 1 mg, Oral, ONCE, 1 dose, [facility] 11/03/20 at 2300, ROSELYN [facility] clonazePAM 0.5 mg tablet 11-01 00:00: 00 04-07 00:00 :00 No .5mg Take 0.5 mg by mouth. [facility] SERTraline 100 mg tablet 11-01 00:00: 00 04-07 00:00 :00 No 100mg Take 100 mg by mouth. [facility] busPIRone 10 mg tablet 10-18 00:00: 00 04-07 00:00 :00 No 10mg Take 10 mg by mouth. [facility] ibuprofen (IBU) tablet 800 mg 09-17 16:55: 00 09-17 16:57 :00 No 800mg 800 mg, Oral, ONCE, 1 dose, 09/17/20 at 1100, ROSELYN [facility] benzonatate 100 mg capsule 3-13 00:00: 00 04-07 00:00 :00 No [id number] 100mg Take 1 capsule by mouth 3 (three) times daily as needed for Cough. [facility] amoxicillin 500 mg capsule 09-17 00:00: 00 09-28 04:59 :00 No [id number] 500mg Take 1 capsule by mouth 3 (three) times daily for 10 days. [facility] HYDROcodone -acetaminop hen (NORCO) 10-325 mg tablet 1 tablet 09-07 07:45: 00 09-07 07:09 :00 No 1{tbl} 1 tablet, Oral, ONCE, 1 dose, Sat09/07/20 at 0145, Routine [facility] ondansetron (ZOFRAN-ODT ) disintegrat ing tablet 4 mg 09-07 07:15: 00 09-07 07:15 :00 No 4mg 4 mg, Oral, ONCE, 1 dose, Sat09/07/20 at 0130, Routine [facility] ibuprofen 800 mg tablet 09-07 00:00: 00 Yes [id number] 800mg Take 1 tablet by mouth every 8 (eight) hours as needed for Pain (scale 4-6). [facility] ketorolac (TORADOL) injection 30 mg 08-28 10:45: 00 08-28 09:48 :00 No 30mg 30 mg, Slow IV Push, ONCE, 1 dose, 08/28/20 at 0445, Routine
manufacturing team member approving Restricted medication : OLIVIA GARCIA [facility] ondansetron (ZOFRAN (PF)) injection 4 mg 08-28 10:00: 00 08-28 09:06 :00 No 4mg 4 mg, Slow IV Push, ONCE, 1 dose, 08/28/20 at 0400, ROSELYN [facility] FENTanyl PF (SUBLIMAZE (PF)) injection 50 mcg 08-28 10:00: 00 08-28 09:07 :00 No 50ug 50 mcg, Slow IV Push, ONCE, 1 dose, 08/28/20 at 0400, Routine [facility] maalox:diph enhydrAMINE :lidocaine 2 % viscous 1:1:1 (FIRST-MOUT HWASH BLM) oral suspension 15 mL 08-28 10:00: 00 08-28 09:07 :00 No 15mL 15 mL, Oral, ONCE, 1 dose, 08/28/20 at 0400, Routine [facility] iohexol (OMNIPAQUE 350 BULK-100 mL) injection 120 mL 08-28 09:30: 00 08-28 09:11 :00 No 120mL 120 mL, Intravenou s, ONCE, 1 dose, 08/28/20 at 0330, Routine [facility] dicyclomine 20 mg tablet 08-28 00:00: 00 04-07 00:00 :00 No [id number] 20mg Take 1 tablet by mouth every 6 (six) hours as needed for Abdominal pain. [facility] ondansetron (ZOFRAN) 4 mg tablet 08-28 00:00: 00 09-17 00:00 :00 No [id number] 4mg Take 1 tablet by mouth every 8 (eight) hours as needed for Nausea and Vomiting (N/V). [facility] FENTanyl PF (SUBLIMAZE (PF)) injection 25 mcg 08-14 19:00: 00 08-14 18:09 :00 No 25ug 25 mcg, Slow IV Push, ONCE, 1 dose, 08/14/20 at 1300, STAT [facility] ondansetron (ZOFRAN (PF)) injection 4 mg 08-14 19:00: 00 08-14 18:10 :00 No 4mg 4 mg, Slow IV Push, ONCE, 1 dose, 08/14/20 at 1300, ROSELYN [facility] ketorolac (TORADOL) injection 15 mg 08-14 19:0008-14 18:09 :00 No 15mg 15 mg, Slow IV Push, ONCE, 1 dose, 08/14/20 at 1300, ROSELYN
Fa [employer] member approving Restricted medication : BEST TAYLOR [facility] piperacilli n-tazobacta m (ZOSYN) 3.375 g in NaCl 0.9% (NS) 100 mL MINI-BAG 08-14 19:00: 08-14 18:38 :00 No 3.375g 3.375 g, IV Piggyback, ONCE, 1 dose, 08/14/20 at 1300, 100 mL
Reas on for Anti-Infec tive: Documented Infection< br>Documen kaushik Infection Site: Urine
D uration of Therapy: Other (see Comments) [facility] NaCl 0.9% (NS) bolus infusion 1,000 mL 08-14 19:00: 00 08-14 19:00 :00 No 1000mL at 999 mL/hr, 1,000 mL, IV Infusion, ONCE, 1 dose, 08/14/20 at 1300, STAT [facility] guaiFENesin 100 mg/5 mL solution 08-14 00:00: 00 04-07 00:00 :00 No [id number] 100mg Take 5 mL by mouth every 4 (four) hours. [facility] ondansetron 4 mg disintegrat ing tablet 08-14 00:00: 00 09-17 00:00 :00 No [id number] 4mg Take 1 tablet by mouth every 8 (eight) hours as needed for Nausea and Vomiting (N/V). [facility] ibuprofen 600 mg tablet 08-14 00:00: 00 09-17 00:00 :00 No [id number] 600mg Take 1 tablet by mouth every 6 (six) hours as needed for Pain (scale 4-6). [facility] amoxicillin -clavulanat e 875-125 mg per tablet 08-14 00:00: 00 08-25 05:59 :00 No [id number] 1{tbl} Take 1 tablet by mouth 2 (two) times daily for 10 days. [facility] fluconazole (DIFLUCAN) tablet 150 mg 08-11 15:00: 00 Yes 150mg 150 mg, Oral, DAILY, First dose on [place] 08/11/20 at 0900, Until Discontinu ed, ROSELYN
Re ason for Anti-Infec tive: Documented Infection< br>Documen kaushik Infection Site: Urine
D uration of Therapy: Other (see Comments) [facility] HYDROcodone -acetaminop hen (NORCO) 10-325 mg tablet 1 tablet 08-11 05:30: 00 08-11 05:08 :00 No 1{tbl} 1 tablet, Oral, ONCE NOW, 1 dose, 08/10/20 at 2330, Routine [facility] FENTanyl PF (SUBLIMAZE (PF)) injection 25 mcg 08-11 04:30: 00 08-11 03:19 :00 No 25ug 25 mcg, Slow IV Push, ONCE, 1 dose, 08/10/20 at 2230, STAT [facility] ondansetron (ZOFRAN (PF)) injection 4 mg 08-11 04:15: 00 08-11 03:19 :00 No 4mg 4 mg, Slow IV Push, ONCE, 1 dose, 08/10/20 at 2215, ROSELYN [facility] NaCl 0.9% (NS) bolus infusion 1,000 mL 08-11 01:45: 00 08-11 03:45 :00 No 1000mL at 999 mL/hr, 1,000 mL, IV Infusion, ONCE, 1 dose, 08/10/20 at 1945, STAT [facility] ketorolac (TORADOL) injection 30 mg 08-11 01:45: 00 08-11 02:31 :00 No 30mg 30 mg, Slow IV Push, ONCE, 1 dose, 08/10/20 at 1945, ROSELYN
Fa culty member approving Restricted medication : BEST TAYLOR [facility] traMADoL (ULTRAM) 50 mg tablet 08-10 00:00: 00 09-17 00:00 :00 No [id number] 50mg Take 1 tablet by mouth every 6 (six) hours as needed for Pain (scale 7-10). Indication s: acute pain [facility] ibuprofen 800 mg tablet 08-07 00:00: 00 09-17 00:00 :00 No [id number] 800mg Take 1 tablet by mouth every 8 (eight) hours. [facility] amoxicillin 500 mg capsule 08-07 00:00: 00 09-17 00:00 :00 No [id number] 500mg Take 1 capsule by mouth 3 (three) times daily. [facility] traMADoL 50 mg tablet 08-07 00:00: 00 09-17 00:00 :00 No [id number] 50mg Take 1 tablet by mouth every 6 (six) hours as needed for Pain (scale 4-6). Indication s: acute pain [facility] LORazepam (ATIVAN) tablet 1 mg 2019-07 03:15: 00 07-01 02:21 :00 No 1mg 1 mg, Oral, ONCE, 1 dose, [place] 06/30/20 at 2115, ROSELYN [facility] FENTanyl PF (SUBLIMAZE (PF)) injection 50 mcg 2019-07 02:30: 00 07-01 01:39 :00 No 50ug 50 mcg, Slow IV Push, ONCE, 1 dose, [place] 06/30/20 at 2030, Routine [facility] ondansetron (ZOFRAN-ODT ) disintegrat ing tablet 4 mg 2019-07 01:15: 00 07-01 00:52 :00 No 4mg 4 mg, Oral, ONCE, 1 dose, [place] 06/30/20 at 1915, Routine [facility] ketorolac (TORADOL) injection 30 mg 2019-07 01:15: 00 07-01 00:52 :00 No 30mg 30 mg, Slow IV Push, ONCE, 1 dose, [place] 06/30/20 at 1915, ROSELYN
Fa [employer] member approving Restricted medication : AILYN ABDIAS [facility] albuterol 90 mcg/actuati on inhaler 2019-07 00:00: 04-07 00:00 :00 No [id number] 2{puff} Inhale 2 Puffs every 4 (four) hours as needed for Wheezing or Shortness of Breath. [facility] hydrOXYzine 25 mg tablet 2019-07 00:00: 09-17 00:00 :00 No [id number] 25mg Take 1 tablet by mouth every 6 (six) hours as needed for Anxiety. [facility] naproxen sodium (ANAPROX DS) 550 mg tablet 2019-07 00:00: 00 04-07 00:00 :00 No [id number] 550mg Take 1 tablet by mouth 2 (two) times daily with meals. [facility] methylPREDN ISolone (MEDROL, BEBETO,) 4 mg tablets 2019-07 00:00: 09-17 00:00 :00 No [id number] Take by mouth SEE-INSTRU CTIONS. follow package directions [facility] methocarbam oL 500 mg tablet 2019-07 00:00: 00 07-04 05:59 :00 No [id number] 500mg Take 1 tablet by mouth 3 (three) times daily for 5 days. [facility] proMETHazin e (PHENERGAN) tablet 25 mg 2019-07 04:45: 00 06-13 03:37 :00 No 25mg 25 mg, Oral, ONCE, 1 dose, 06/12/20 at 2245, ROSELYN [facility] ondansetron (ZOFRAN (PF)) injection 4 mg 2019-07 03:00: 00 06-13 01:59 :00 No 4mg 4 mg, Slow IV Push, ONCE, 1 dose, 06/12/20 at 2100, ROSELYN [facility] ketorolac (TORADOL) injection 15 mg 2019-07 03:00: 00 06-13 01:58 :00 No 15mg 15 mg, Intramuscu lar, ONCE, 1 dose, 06/12/20 at 2100, ROSELYN
Fa [employer] member approving Restricted medication : LEEANNE WISE [facility] morpHINE injection 4 mg 2019-07 01:30: 00 06-13 00:41 :00 No 4mg 4 mg, Slow IV Push, ONCE, 1 dose, 06/12/20 at 1930, STAT [facility] ondansetron (ZOFRAN (PF)) injection 4 mg 2019-07 00:45: 00 06-13 00:41 :00 No 4mg 4 mg, Slow IV Push, ONCE, 1 dose, 06/12/20 at 1845, [facility] NaCl 0.9% (NS) bolus infusion 1,000 mL 2019-07 23:45: 00 06-13 03:54 :00 No 1000mL at 999 mL/hr, 1,000 mL, IV Infusion, ONCE, 1 dose, 06/12/20 at 1745, ROSELYN [facility] dicyclomine 20 mg tablet 2019-07 00:00: 00 04-07 00:00 :00 No [id number] 20mg Take 1 tablet by mouth 4 (four) times daily as needed for Abdominal pain. [facility] proMETHazin e 25 mg tablet 2019-07 00:00: 00 09-17 00:00 :00 No [id number] 25mg Take 1 tablet by mouth every 6 (six) hours as needed for Nausea and Vomiting (N/V). [facility] famotidine 20 mg tablet 2019-07 00:00: 00 06-27 05:59 :00 No [id number] 20mg Take 1 tablet by mouth at bedtime for 14 days. [facility] haloperidol lactate (HALDOL) injection 2.5 mg 2019-07 01:00: 00 05-16 23:51 :00 No 2.5mg 2.5 mg, Intravenou s, ONCE, 1 dose, 05/16/20 at 1900, STAT [facility] NaCl 0.9% (NS) bolus infusion 1,000 mL 2019-07 23:45: 00 05-17 00:54 :00 No 1000mL at 999 mL/hr, 1,000 mL, IV Infusion, ONCE, 1 dose, [facility] 05/16/20 at 1745, ROSELYN [facility] proMETHazin e (PHENERGAN) 25 mg suppository 2019-07 00:00: 00 Yes [id number] 25mg Insert 1 Suppositor y into rectum every 4 (four) hours as needed for Nausea and Vomiting (N/V). [facility] ondansetron (ZOFRAN (PF)) injection 4 mg 2019-07 07:30: 00 05-15 06:26 :00 No 4mg 4 mg, Slow IV Push, ONCE, 1 dose, [place] 05/15/20 at 0130, [facility] iohexol (OMNIPAQUE 350 BULK-100 mL) injection 120 mL 2019-07 07:00: 00 05-15 06:52 :00 No 120mL 120 mL, Intravenou s, ONCE, 1 dose, [place] 05/15/20 at 0100, Routine [facility] ondansetron (ZOFRAN (PF)) injection 4 mg 2019-07 06:30: 00 05-15 05:52 :00 No 4mg 4 mg, Slow IV Push, ONCE, 1 dose, [place] [facility]20 [facility] 0030[facility] 2 mg tablet 2019-07 05:30: 59 Yes 2mg Take 2 mg by mouth at bedtime. [facility] zolpidem 5 mg tablet 12-20 00:00: 00 04-07 00:00 :00 No 5mg Take 5 mg by mouth. [facility] Immunizations Ordered Immunization Name Filled Immunization Name Date Status Comments Source Covid-19 Vaccine Moderna (Spikevax), Mrna-lnp, Zackery Protein, Pf Unknown Completed Kellee Buckley - Samson Covid-19 Vaccine Moderna (Spikevax), Mrna-lnp, Zackery Protein, [...] Respiratory rate 2023-12-13 14:10:00 15 /min Kellee Seybold - External Body height 2023-12-13 14:10:00 157.5 [...] Body weight 2023-12-03 15:44:00 104.781 kg Kellee Seybold - External BMI 2023-12-03 15:44:00 42.25 kg/m2 Kellee Seybold - External Systolic blood pressure 2023-10-29 18:12:00 132 mm[Hg] Kellee Floresold - External Diastolic blood pressure 2023-10-29 18:12:00 [...] Pulse oximetry 2023-10-29 18:12:00 97 /min Kellee Buckley - External Systolic blood pressure 2023-10-11 05:00:00 126 mm[Hg] [facility] Diastolic blood pressure 2023-10-11 05:00:00 87 mm[Hg] [facility] Heart rate 2023-10-11 05:00:00 94 /min [facility] Respiratory rate 2023-10-11 05:00:00 22 /min [facility] Oxygen saturation in Arterial blood by Pulse oximetry 2023-10-11 05:00:00 98 /min [facility] Body temperature 2023-10-11 02:28:00 37.22 Latanya [facility] Body height 2023-10-11 02:28:00 157.5 cm [facility] Body weight 2023-10-11 02:28:00 99.791 kg [facility] BMI 2023-10-11 02:28:00 40.24 kg/m2 [facility] Systolic blood pressure 2023-07-02 04:10:00 147 mm[Hg] [facility] Diastolic blood pressure 2023-07-02 04:10:00 89 mm[Hg] [facility] Heart rate 2023-07-02 04:10:00 73 /min [facility] Respiratory rate 2023-07-02 04:10:00 19 /min [facility] Oxygen saturation in Arterial blood by Pulse oximetry 2023-07-02 04:10:00 98 /min [facility] Body temperature 2023-07-02 01:47:00 36.78 Latanya [facility] Body height 2023-07-02 01:47:00 160 cm [facility] Body weight 2023-07-02 01:47:00 97.659 kg [facility] BMI 2023-07-02 01:47:00 38.14 kg/m2 [facility] Systolic blood pressure 2023-05-10 01:00:00 133 mm[Hg] [facility] Diastolic blood pressure 2023-05-10 01:00:00 81 mm[Hg] [facility] Heart rate 2023-05-10 01:00:00 64 /min [facility] Respiratory rate 2023-05-10 01:00:00 21 /min [facility] Oxygen saturation in Arterial blood by Pulse oximetry 2023-05-10 01:00:00 96 /min [facility] Body temperature 2023-05-09 22:43:00 36.67 Latanya [facility] Body height 2023-05-09 22:43:00 157.5 cm [facility] Body weight 2023-05-09 22:43:00 99.791 kg [facility] BMI 2023-05-09 22:43:00 40.24 kg/m2 [facility] Systolic blood pressure 2023-05-01 01:00:00 107 mm[Hg] [facility] Diastolic blood pressure 2023-05-01 01:00:00 80 mm[Hg] [facility] Heart rate 2023-05-01 01:00:00 80 /min [facility] Body temperature 2023-05-01 01:00:00 37.06 Latanya [facility] Respiratory rate 2023-05-01 01:00:00 16 /min [facility] Oxygen saturation in Arterial blood by Pulse oximetry 2023-05-01 01:00:00 98 /min [facility] Body height 2023-04-30 22:16:00 157.5 cm [facility] Body weight 2023-04-30 22:16:00 95.255 kg [facility] BMI 2023-04-30 22:16:00 38.41 kg/m2 [facility] Systolic blood pressure 2023-04-17 02:00:00 147 mm[Hg] [facility] Diastolic blood pressure 2023-04-17 02:00:00 83 mm[Hg] [facility] Heart rate 2023-04-17 02:00:00 90 /min [facility] Respiratory rate 2023-04-17 02:00:00 18 /min [facility] Oxygen saturation in Arterial blood by Pulse oximetry 2023-04-17 02:00:00 96 /min [facility] Body temperature 2023-04-17 01:33:00 36.78 Latanya [facility] Body height 2023-04-17 01:33:00 157.5 cm [facility] Body weight 2023-04-17 01:33:00 99.791 kg [facility] BMI 2023-04-17 01:33:00 40.24 kg/m2 [facility] Systolic blood pressure 2023-04-09 01:04:48 135 mm[Hg] [facility] Diastolic blood pressure 2023-04-09 01:04:48 84 mm[Hg] [facility] Heart rate 2023-04-09 01:04:48 67 /min [facility] Respiratory rate 2023-04-09 01:04:48 16 /min [facility] Oxygen saturation in Arterial blood by Pulse oximetry 2023-04-09 01:04:48 99 /min [facility] Body temperature 2023-04-08 22:16:00 36.67 Latanya [facility] Body height 2023-04-08 22:16:00 157.5 cm [facility] Body weight 2023-04-08 22:16:00 99.791 kg [facility] BMI 2023-04-08 22:16:00 40.24 kg/m2 [facility] Systolic blood pressure 2023-03-10 05:00:00 156 mm[Hg] [facility] Diastolic blood pressure 2023-03-10 05:00:00 94 mm[Hg] [facility] Heart rate 2023-03-10 05:00:00 75 /min [facility] Respiratory rate 2023-03-10 05:00:00 21 /min [facility] Oxygen saturation in Arterial blood by Pulse oximetry 2023-03-10 05:00:00 97 /min [facility] Body temperature 2023-03-10 01:20:00 36.72 Latanya [facility] Body height 2023-03-10 01:20:00 157.5 cm [facility] Body weight 2023-03-10 01:20:00 100.381 kg [facility] BMI 2023-03-10 01:20:00 40.48 kg/m2 [facility] Systolic blood pressure 2023-03-02 06:00:00 126 mm[Hg] [facility] Diastolic blood pressure 2023-03-02 06:00:00 79 mm[Hg] [facility] Heart rate 2023-03-02 06:00:00 69 /min [facility] Respiratory rate 2023-03-02 06:00:00 23 /min [facility] Oxygen saturation in Arterial blood by Pulse oximetry 2023-03-02 06:00:00 94 /min [facility] Body temperature 2023-03-02 00:34:00 37.28 Latanya [facility] Body height 2023-03-02 00:34:00 157.5 cm [facility] Body weight 2023-03-02 00:34:00 99.791 kg [facility] BMI 2023-03-02 00:34:00 40.24 kg/m2 [facility] Systolic blood pressure 2023-02-18 06:46:00 126 mm[Hg] [facility] Diastolic blood pressure 2023-02-18 06:46:00 77 mm[Hg] [facility] Heart rate 2023-02-18 06:46:00 79 /min [facility] Respiratory rate 2023-02-18 06:46:00 16 /min [facility] Oxygen saturation in Arterial blood by Pulse oximetry 2023-02-18 06:46:00 95 /min [facility] Body temperature 2023-02-18 03:55:00 36.72 Latanya [facility] Body height 2023-02-18 03:55:00 157.5 cm [facility] Body weight 2023-02-18 03:55:00 102.331 kg [facility] BMI 2023-02-18 03:55:00 41.26 kg/m2 [facility] Systolic blood pressure 2023-02-17 16:20:00 113 mm[Hg] [facility] Diastolic blood pressure 2023-02-17 16:20:00 65 mm[Hg] [facility] Heart rate 2023-02-17 16:20:00 65 /min [facility] Body temperature 2023-02-17 16:20:00 36.83 Latanya [facility] Respiratory rate 2023-02-17 16:20:00 16 /min [facility] Oxygen saturation in Arterial blood by Pulse oximetry 2023-02-17 16:20:00 97 /min [facility] Body weight 2023-02-17 08:50:00 99.973 kg [facility] BMI 2023-02-17 08:50:00 40.31 kg/m2 [facility] Body height 2023-02-16 01:19:00 157.5 cm [facility] Systolic blood pressure 2022-01-10 01:24:00 120 mm[Hg] [facility] Diastolic blood pressure 2022-01-10 01:24:00 76 mm[Hg] [facility] Heart rate 2022-01-10 01:24:00 73 /min [facility] Respiratory rate 2022-01-10 01:24:00 16 /min [facility] Oxygen saturation in Arterial blood by Pulse oximetry 2022-01-10 01:24:00 96 /min [facility] Body weight 2022-01-09 21:39:00 104.327 kg [facility] BMI 2022-01-09 21:39:00 42.07 kg/m2 [facility] Systolic blood pressure 2021-12-14 07:22:00 121 mm[Hg] [facility] Diastolic blood pressure 2021-12-14 07:22:00 86 mm[Hg] [facility] Heart rate 2021-12-14 07:22:00 80 /min [facility] Respiratory rate 2021-12-14 07:22:00 17 /min [facility] Oxygen saturation in Arterial blood by Pulse oximetry 2021-12-14 07:22:00 96 /min [facility] Body temperature 2021-12-14 03:06:00 36.72 Latanya [facility] Body height 2021-12-14 03:06:00 157.5 cm [facility] Body weight 2021-12-14 03:06:00 95.255 kg [facility] BMI 2021-12-14 03:06:00 38.41 kg/m2 [facility] Systolic blood pressure 2021-11-12 04:15:00 112 mm[Hg] [facility] Diastolic blood pressure 2021-11-12 04:15:00 75 mm[Hg] [facility] Heart rate 2021-11-12 04:15:00 92 /min [facility] Body temperature 2021-11-12 04:15:00 36.44 Latanya [facility] Respiratory rate 2021-11-12 04:15:00 18 /min [facility] Oxygen saturation in Arterial blood by Pulse oximetry 2021-11-12 04:15:00 98 /min [facility] Body height 2021-11-12 00:41:00 157.5 cm [facility] Body weight 2021-11-12 00:41:00 95.255 kg [facility] BMI 2021-11-12 00:41:00 38.41 kg/m2 [facility] Systolic blood pressure 2021-09-12 01:31:00 142 mm[Hg] [facility] Diastolic blood pressure 2021-09-12 01:31:00 80 mm[Hg] [facility] Heart rate 2021-09-12 01:31:00 78 /min [facility] Body temperature 2021-09-12 01:31:00 36.72 Latanya [facility] Respiratory rate 2021-09-12 01:31:00 18 /min [facility] Body height 2021-09-12 01:31:00 157.5 cm [facility] Body weight 2021-09-12 01:31:00 99.791 kg [facility] BMI 2021-09-12 01:31:00 40.24 kg/m2 [facility] Oxygen saturation in Arterial blood by Pulse oximetry 2021-09-12 01:31:00 97 /min [facility] Systolic blood pressure 2021-08-15 08:20:00 120 mm[Hg] [facility] Diastolic blood pressure 2021-08-15 08:20:00 74 mm[Hg] [facility] Heart rate 2021-08-15 08:20:00 69 /min [facility] Respiratory rate 2021-08-15 08:20:00 20 /min [facility] Oxygen saturation in Arterial blood by Pulse oximetry 2021-08-15 08:20:00 96 /min [facility] Body temperature 2021-08-15 05:34:00 36.22 Latanya [facility] Body height 2021-08-15 05:34:00 157.5 cm [facility] Body weight 2021-08-15 05:34:00 99.791 kg [facility] BMI 2021-08-15 05:34:00 40.24 kg/m2 [facility] Systolic blood pressure 2021-05-28 10:00:00 122 mm[Hg] [facility] Diastolic blood pressure 2021-05-28 10:00:00 78 mm[Hg] [facility] Heart rate 2021-05-28 10:00:00 75 /min [facility] Respiratory rate 2021-05-28 10:00:00 20 /min [facility] Oxygen saturation in Arterial blood by Pulse oximetry 2021-05-28 10:00:00 99 /min [facility] Body temperature 2021-05-28 05:21:00 36.11 Latanya [facility] Body height 2021-05-28 05:21:00 157.5 cm [facility] Body weight 2021-05-28 05:21:00 99.791 kg [facility] BMI 2021-05-28 05:21:00 40.24 kg/m2 [facility] Systolic blood pressure 2021-04-08 21:55:00 110 mm[Hg] [facility] Diastolic blood pressure 2021-04-08 21:55:00 80 mm[Hg] [facility] Heart rate 2021-04-08 21:55:00 70 /min [facility] Body temperature 2021-04-08 21:55:00 36.28 Latanya [facility] Respiratory rate 2021-04-08 21:55:00 16 /min [facility] Oxygen saturation in Arterial blood by Pulse oximetry 2021-04-08 21:55:00 94 /min [facility] Body height 2021-04-08 03:00:00 157.5 cm [facility] Body weight 2021-04-08 03:00:00 105.688 kg [facility] BMI 2021-04-08 03:00:00 42.62 kg/m2 [facility] Systolic blood pressure 2021-01-12 09:00:00 147 mm[Hg] [facility] Diastolic blood pressure 2021-01-12 09:00:00 71 mm[Hg] [facility] Heart rate 2021-01-12 09:00:00 103 /min [facility] Respiratory rate 2021-01-12 09:00:00 18 /min [facility] Oxygen saturation in Arterial blood by Pulse oximetry 2021-01-12 09:00:00 97 /min [facility] Body temperature 2021-01-12 07:48:00 37.06 Latanya [facility] Body height 2021-01-12 07:48:00 157.5 cm [facility] Body weight 2021-01-12 07:48:00 102.513 kg [facility] BMI 2021-01-12 07:48:00 41.34 kg/m2 [facility] Systolic blood pressure 2020-12-11 01:30:00 136 mm[Hg] [facility] Diastolic blood pressure 2020-12-11 01:30:00 88 mm[Hg] [facility] Heart rate 2020-12-11 01:30:00 99 /min [facility] Respiratory rate 2020-12-11 01:30:00 28 /min [facility] Oxygen saturation in Arterial blood by Pulse oximetry 2020-12-11 01:30:00 97 /min [facility] Body temperature 2020-12-10 22:11:00 36.78 Latanya [facility] Body weight 2020-12-10 22:11:00 99.791 kg [facility] BMI 2020-12-10 22:11:00 40.24 kg/m2 [facility] Systolic blood pressure 2020-12-04 21:30:00 126 mm[Hg] [facility] Diastolic blood pressure 2020-12-04 21:30:00 79 mm[Hg] [facility] Heart rate 2020-12-04 21:30:00 91 /min [facility] Respiratory rate 2020-12-04 21:30:00 20 /min [facility] Oxygen saturation in Arterial blood by Pulse oximetry 2020-12-04 21:30:00 96 /min [facility] Body temperature 2020-12-04 19:49:00 37.06 Latanya [facility] Body height 2020-12-04 19:49:00 157.5 cm [facility] Body weight 2020-12-04 19:49:00 99.791 kg [facility] BMI 2020-12-04 19:49:00 40.24 kg/m2 [facility] Systolic blood pressure 2020-11-04 01:42:00 142 mm[Hg] [facility] Diastolic blood pressure 2020-11-04 01:42:00 100 mm[Hg] [facility] Heart rate 2020-11-04 01:42:00 109 /min [facility] Body temperature 2020-11-04 01:42:00 36.78 Latanya [facility] Respiratory rate 2020-11-04 01:42:00 20 /min [facility] Body weight 2020-11-04 01:42:00 99.791 kg [facility] BMI 2020-11-04 01:42:00 40.24 kg/m2 [facility] Oxygen saturation in Arterial blood by Pulse oximetry 2020-11-04 01:42:00 98 /min [facility] Systolic blood pressure 2020-09-17 15:52:00 138 mm[Hg] [facility] Diastolic blood pressure 2020-09-17 15:52:00 94 mm[Hg] [facility] Heart rate 2020-09-17 15:52:00 98 /min [facility] Body temperature 2020-09-17 15:52:00 36.94 Latanya [facility] Respiratory rate 2020-09-17 15:52:00 20 /min [facility] Body weight 2020-09-17 15:52:00 95.255 kg [facility] BMI 2020-09-17 15:52:00 38.41 kg/m2 [facility] Oxygen saturation in Arterial blood by Pulse oximetry 2020-09-17 15:52:00 97 /min [facility] Systolic blood pressure 2020-09-17 15:52:00 138 mm[Hg] [facility] Diastolic blood pressure 2020-09-17 15:52:00 94 mm[Hg] [facility] Heart rate 2020-09-17 15:52:00 98 /min [facility] Body temperature 2020-09-17 15:52:00 36.94 Latanya [facility] Respiratory rate 2020-09-17 15:52:00 20 /min [facility] Body weight 2020-09-17 15:52:00 95.255 kg [facility] BMI 2020-09-17 15:52:00 38.41 kg/m2 [facility] Oxygen saturation in Arterial blood by Pulse oximetry 2020-09-17 15:52:00 97 /min [facility] Systolic blood pressure 2020-09-07 06:35:00 123 mm[Hg] [facility] Diastolic blood pressure 2020-09-07 06:35:00 56 mm[Hg] [facility] Heart rate 2020-09-07 06:35:00 97 /min [facility] Body temperature 2020-09-07 06:35:00 36.28 Latanya [facility] Respiratory rate 2020-09-07 06:35:00 18 /min [facility] Body weight 2020-09-07 06:35:00 99.791 kg [facility] BMI 2020-09-07 06:35:00 40.24 kg/m2 [facility] Oxygen saturation in Arterial blood by Pulse oximetry 2020-09-07 06:35:00 98 /min [facility] Systolic blood pressure 2020-09-07 06:35:00 123 mm[Hg] [facility] Diastolic blood pressure 2020-09-07 06:35:00 56 mm[Hg] [facility] Heart rate 2020-09-07 06:35:00 97 /min [facility] Body temperature 2020-09-07 06:35:00 36.28 Latanya [facility] Respiratory rate 2020-09-07 06:35:00 18 /min [facility] Body weight 2020-09-07 06:35:00 99.791 kg [facility] BMI 2020-09-07 06:35:00 40.24 kg/m2 [facility] Oxygen saturation in Arterial blood by Pulse oximetry 2020-09-07 06:35:00 98 /min [facility] Systolic blood pressure 2020-08-28 09:00:00 132 mm[Hg] [facility] Diastolic blood pressure 2020-08-28 09:00:00 87 mm[Hg] [facility] Heart rate 2020-08-28 09:00:00 90 /min [facility] Respiratory rate 2020-08-28 09:00:00 20 /min [facility] Oxygen saturation in Arterial blood by Pulse oximetry 2020-08-28 09:00:00 97 /min [facility] Body temperature 2020-08-28 07:59:00 36.72 Latanya [facility] Body height 2020-08-28 07:59:00 157.5 cm [facility] Body weight 2020-08-28 07:59:00 99.791 kg [facility] BMI 2020-08-28 07:59:00 40.24 kg/m2 [facility] Systolic blood pressure 2020-08-28 09:00:00 132 mm[Hg] [facility] Diastolic blood pressure 2020-08-28 09:00:00 87 mm[Hg] [facility] Heart rate 2020-08-28 09:00:00 90 /min [facility] Respiratory rate 2020-08-28 09:00:00 20 /min [facility] Oxygen saturation in Arterial blood by Pulse oximetry 2020-08-28 09:00:00 97 /min [facility] Body temperature 2020-08-28 07:59:00 36.72 Latanya [facility] Body height 2020-08-28 07:59:00 157.5 cm [facility] Body weight 2020-08-28 07:59:00 99.791 kg [facility] BMI 2020-08-28 07:59:00 40.24 kg/m2 [facility] Systolic blood pressure 2020-08-14 19:40:00 135 mm[Hg] [facility] Diastolic blood pressure 2020-08-14 19:40:00 100 mm[Hg] [facility] Heart rate 2020-08-14 19:40:00 68 /min [facility] Body temperature 2020-08-14 19:40:00 37.11 Latanya [facility] Respiratory rate 2020-08-14 19:40:00 19 /min [facility] Oxygen saturation in Arterial blood by Pulse oximetry 2020-08-14 19:40:00 99 /min [facility] Body height 2020-08-14 17:41:00 157.5 cm [facility] Body weight 2020-08-14 17:41:00 99.791 kg [facility] BMI 2020-08-14 17:41:00 40.24 kg/m2 [facility] Systolic blood pressure 2020-08-14 19:40:00 135 mm[Hg] [facility] Diastolic blood pressure 2020-08-14 19:40:00 100 mm[Hg] [facility] Heart rate 2020-08-14 19:40:00 68 /min [facility] Body temperature 2020-08-14 19:40:00 37.11 Latanya [facility] Respiratory rate 2020-08-14 19:40:00 19 /min [facility] Oxygen saturation in Arterial blood by Pulse oximetry 2020-08-14 19:40:00 99 /min [facility] Body height 2020-08-14 17:41:00 157.5 cm [facility] Body weight 2020-08-14 17:41:00 99.791 kg [facility] BMI 2020-08-14 17:41:00 40.24 kg/m2 [facility] Systolic blood pressure 2020-08-11 04:00:00 106 mm[Hg] [facility] Diastolic blood pressure 2020-08-11 04:00:00 92 mm[Hg] [facility] Heart rate 2020-08-11 04:00:00 90 /min [facility] Respiratory rate 2020-08-11 04:00:00 16 /min [facility] Oxygen saturation in Arterial blood by Pulse oximetry 2020-08-11 04:00:00 99 /min [facility] Body temperature 2020-08-11 03:12:56 37.72 Latanya [facility] Body height 2020-08-11 00:19:00 157.5 cm [facility] Body weight 2020-08-11 00:19:00 99.791 kg [facility] BMI 2020-08-11 00:19:00 40.24 kg/m2 [facility] Systolic blood pressure 2020-08-11 04:00:00 106 mm[Hg] [facility] Diastolic blood pressure 2020-08-11 04:00:00 92 mm[Hg] [facility] Heart rate 2020-08-11 04:00:00 90 /min [facility] Respiratory rate 2020-08-11 04:00:00 16 /min [facility] Oxygen saturation in Arterial blood by Pulse oximetry 2020-08-11 04:00:00 99 /min [facility] Body temperature 2020-08-11 03:12:56 37.72 Latanya [facility] Body height 2020-08-11 00:19:00 157.5 cm [facility] Body weight 2020-08-11 00:19:00 99.791 kg [facility] BMI 2020-08-11 00:19:00 40.24 kg/m2 [facility] Systolic blood pressure 2020-08-07 13:16:00 100 mm[Hg] [facility] Diastolic blood pressure 2020-08-07 13:16:00 69 mm[Hg] [facility] Heart rate 2020-08-07 13:16:00 99 /min [facility] Body temperature 2020-08-07 13:16:00 36.67 Latanya [facility] Respiratory rate 2020-08-07 13:16:00 18 /min [facility] Body weight 2020-08-07 13:16:00 95.255 kg [facility] BMI 2020-08-07 13:16:00 38.41 kg/m2 [facility] Oxygen saturation in Arterial blood by Pulse oximetry 2020-08-07 13:16:00 99 /min [facility] Systolic blood pressure 2020-08-07 13:16:00 100 mm[Hg] [facility] Diastolic blood pressure 2020-08-07 13:16:00 69 mm[Hg] [facility] Heart rate 2020-08-07 13:16:00 99 /min [facility] Body temperature 2020-08-07 13:16:00 36.67 Latanya [facility] Respiratory rate 2020-08-07 13:16:00 18 /min [facility] Body weight 2020-08-07 13:16:00 95.255 kg [facility] BMI 2020-08-07 13:16:00 38.41 kg/m2 [facility] Oxygen saturation in Arterial blood by Pulse oximetry 2020-08-07 13:16:00 99 /min [facility] Systolic blood pressure 2020-07-01 02:00:00 136 mm[Hg] [facility] Diastolic blood pressure 2020-07-01 02:00:00 85 mm[Hg] [facility] Heart rate 2020-07-01 02:00:00 73 /min [facility] Respiratory rate 2020-07-01 02:00:00 20 /min [facility] Oxygen saturation in Arterial blood by Pulse oximetry 2020-07-01 02:00:00 97 /min [facility] Body temperature 2020-06-30 23:36:00 36.56 Latanya [facility] Body height 2020-06-30 23:36:00 157.5 cm [facility] Body weight 2020-06-30 23:36:00 95.255 kg [facility] BMI 2020-06-30 23:36:00 38.41 kg/m2 [facility] Systolic blood pressure 2020-07-01 02:00:00 136 mm[Hg] [facility] Diastolic blood pressure 2020-07-01 02:00:00 85 mm[Hg] [facility] Heart rate 2020-07-01 02:00:00 73 /min [facility] Respiratory rate 2020-07-01 02:00:00 20 /min [facility] Oxygen saturation in Arterial blood by Pulse oximetry 2020-07-01 02:00:00 97 /min [facility] Body temperature 2020-06-30 23:36:00 36.56 Latanya [facility] Body height 2020-06-30 23:36:00 157.5 cm [facility] Body weight 2020-06-30 23:36:00 95.255 kg [facility] BMI 2020-06-30 23:36:00 38.41 kg/m2 [facility] Systolic blood pressure 2020-06-28 21:57:00 151 mm[Hg] [facility] Diastolic blood pressure 2020-06-28 21:57:00 88 mm[Hg] [facility] Heart rate 2020-06-28 21:57:00 94 /min [facility] Body temperature 2020-06-28 21:57:00 37.78 Latanya [facility] Respiratory rate 2020-06-28 21:57:00 16 /min [facility] Body height 2020-06-28 21:57:00 157.5 cm [facility] Body weight 2020-06-28 21:57:00 95.255 kg [facility] BMI 2020-06-28 21:57:00 38.41 kg/m2 [facility] Oxygen saturation in Arterial blood by Pulse oximetry 2020-06-28 21:57:00 96 /min [facility] Systolic blood pressure 2020-06-28 21:57:00 151 mm[Hg] [facility] Diastolic blood pressure 2020-06-28 21:57:00 88 mm[Hg] [facility] Heart rate 2020-06-28 21:57:00 94 /min [facility] Body temperature 2020-06-28 21:57:00 37.78 Latanya [facility] Respiratory rate 2020-06-28 21:57:00 16 /min [facility] Body height 2020-06-28 21:57:00 157.5 cm [facility] Body weight 2020-06-28 21:57:00 95.255 kg [facility] BMI 2020-06-28 21:57:00 38.41 kg/m2 [facility] Oxygen saturation in Arterial blood by Pulse oximetry 2020-06-28 21:57:00 96 /min [facility] Systolic blood pressure 2020-06-13 03:40:00 122 mm[Hg] [facility] Diastolic blood pressure 2020-06-13 03:40:00 78 mm[Hg] [facility] Heart rate 2020-06-13 03:40:00 90 /min [facility] Respiratory rate 2020-06-13 03:40:00 18 /min [facility] Oxygen saturation in Arterial blood by Pulse oximetry 2020-06-13 03:40:00 94 /min [facility] Body temperature 2020-06-12 23:39:00 37.22 Latanya [facility] Body weight 2020-06-12 23:39:00 97.07 kg [facility] BMI 2020-06-12 23:39:00 39.14 kg/m2 [facility] Systolic blood pressure 2020-06-13 03:40:00 122 mm[Hg] [facility] Diastolic blood pressure 2020-06-13 03:40:00 78 mm[Hg] [facility] Heart rate 2020-06-13 03:40:00 90 /min [facility] Respiratory rate 2020-06-13 03:40:00 18 /min [facility] Oxygen saturation in Arterial blood by Pulse oximetry 2020-06-13 03:40:00 94 /min [facility] Body temperature 2020-06-12 23:39:00 37.22 Latanya [facility] Body weight 2020-06-12 23:39:00 97.07 kg [facility] BMI 2020-06-12 23:39:00 39.14 kg/m2 [facility] Heart rate 2020-05-17 00:40:00 82 /min [facility] Respiratory rate 2020-05-17 00:40:00 18 /min [facility] Oxygen saturation in Arterial blood by Pulse oximetry 2020-05-17 00:40:00 95 /min [facility] Systolic blood pressure 2020-05-17 00:00:00 137 mm[Hg] [facility] Diastolic blood pressure 2020-05-17 00:00:00 93 mm[Hg] [facility] Body temperature 2020-05-16 23:17:00 37.61 Latanya [facility] Body weight 2020-05-16 23:17:00 97.07 kg [facility] BMI 2020-05-16 23:17:00 39.14 kg/m2 [facility] Heart rate 2020-05-17 00:40:00 82 /min [facility] Respiratory rate 2020-05-17 00:40:00 18 /min [facility] Oxygen saturation in Arterial blood by Pulse oximetry 2020-05-17 00:40:00 95 /min [facility] Systolic blood pressure 2020-05-17 00:00:00 137 mm[Hg] [facility] Diastolic blood pressure 2020-05-17 00:00:00 93 mm[Hg] [facility] Body temperature 2020-05-16 23:17:00 37.61 Latanya [facility] Body weight 2020-05-16 23:17:00 97.07 kg [facility] BMI 2020-05-16 23:17:00 39.14 kg/m2 [facility] Systolic blood pressure 2020-05-15 08:50:00 131 mm[Hg] [facility] Diastolic blood pressure 2020-05-15 08:50:00 80 mm[Hg] [facility] Heart rate 2020-05-15 08:50:00 70 /min [facility] Respiratory rate 2020-05-15 08:50:00 18 /min [facility] Oxygen saturation in Arterial blood by Pulse oximetry 2020-05-15 08:50:00 97 /min [facility] Body temperature 2020-05-15 05:29:00 36.44 Latanya [facility] Body height 2020-05-15 05:29:00 157.5 cm [facility] Body weight 2020-05-15 05:29:00 97.07 kg Simultaneous filing. User may not have seen previous data. [facility] BMI 2020-05-15 05:29:00 39.14 kg/m2 [facility] Systolic blood pressure 2020-05-15 08:50:00 131 mm[Hg] [facility] Diastolic blood pressure 2020-05-15 08:50:00 80 mm[Hg] [facility] Heart rate 2020-05-15 08:50:00 70 /min [facility] Respiratory rate 2020-05-15 08:50:00 18 /min [facility] Oxygen saturation in Arterial blood by Pulse oximetry 2020-05-15 08:50:00 97 /min [facility] Body temperature 2020-05-15 05:29:00 36.44 Latanya [facility] Body height 2020-05-15 05:29:00 157.5 cm [facility] Body weight 2020-05-15 05:29:00 97.07 kg Simultaneous filing. User may not have seen previous data. [facility] BMI 2020-05-15 05:29:00 39.14 kg/m2 [facility] Procedures Procedure Date / Time Performed Performing Clinician Source CT ABDOMEN PELVIS W CONTRAST 2023-10-11 04:08:24 Olivia Garcia [facility] POCT TEST 2023-10-11 03:40:00 Olivia Garcia [facility] LIPASE 2023-10-11 03:25:00 Olivia Garcia [facility] COMP. METABOLIC PANEL ([id number]) 2023-10-11 03:25:00 Olivia Garcia [facility] CBC WITH DIFF 2023-10-11 03:25:00 Olivia Garcia [facility] URINALYSIS 2023-10-11 03:25:00 Olivia Garcia [facility] XR KUB 2023-07-02 03[facility]02 02:30:00 Alberta Richards [facility] LIPASE 2023-07-02 02:05:00 Roberto Richards [facility] COMP. METABOLIC PANEL ([id number]) 2023-07-02 02:05:00 Roberto Richards [facility] CBC WITH DIFF 2023-07-02 02:05:00 Roberto Richards [facility] URINALYSIS 2023-07-02 02:05:00 Roberto Richards [facility] URINE DRUG (IMMUNOASSAY) - COMPREHENSIVE DRUG SCREEN W/O REFLEX 2023-07-02 02:05:00 Roberto Richards [facility] CONSENT/REFUSAL FOR DIAGNOSIS AND TREATMENT 2023-07-02 01:43:05 Doctor Unassigned, Currie [facility] LIPASE 2023-05-09 22:47:00 Narayan Narvaez [facility] COMP. METABOLIC PANEL ([id number]) 2023-05-09 22:47:00 Narayan Narvaez [facility] CBC WITH DIFF 2023-05-09 22:47:00 Narayan Narvaez [facility] CONSENT/REFUSAL FOR DIAGNOSIS AND TREATMENT 2023-05-09 22:32:48 Doctor Unassigned, Currie [facility] CT ABDOMEN PELVIS W CONTRAST 2023-04-30 23:47:56 Narayan Narvaez [facility] COMP. METABOLIC PANEL ([id number]) 2023-04-30 23:08:00 Narayan Narvaez [facility] CBC WITH DIFF 2023-04-30 23:08:00 Narayan Narvaez [facility] POCT TEST 2023-04-30 22:59:00 Jaquan Narvaez [facility] URINALYSIS 2023-04-30 22:57:00 [facility] CONSENT/REFUSAL FOR DIAGNOSIS AND TREATMENT 2023-04-30 22:14:38 Doctor Unassigned, Currie [facility] XR ABDOMEN ACUTE SERIES 2023-04-17 02:13:44 Do minal Richards [facility] POCT TEST 2023-04-17 02:11:00 Alberta Richards [facility] LIPASE 2023-04-17 02:04:00 Roberto Richards [facility] TROPONIN I 2023-04-17 02:04:00 Roberto Richards [facility] COMP. METABOLIC PANEL ([id number]) 2023-04-17 02:04:00 Roberto Richards [facility] CBC WITH DIFF 2023-04-17 02:04:00 Roberto Richards [facility] PROTHROMBIN TIME / INR 2023-04-17 02:04:00 Jalen Richards [facility] ACTIVATED PARTIAL THRMPLAS MARCIO 2023-04-17 02:04:00 Roberto Richards [facility] URINALYSIS 2023-04-17 02:04:00 Roberto Richards [facility] N-TERMINAL PRO-BNP 2023-04-17 02:04:00 Roberto Richards [facility] URINE DRUG (IMMUNOASSAY) - COMPREHENSIVE DRUG SCREEN W/O REFLEX 2023-04-17 02:04:00 Roberto Richards [facility] CONSENT/REFUSAL FOR DIAGNOSIS AND TREATMENT 2023-04-17 01:22:36 Doctor Unassigned, Currie [facility] URINALYSIS 2023-04-09 01:02:00 Saleem Edward [facility] LIPASE 2023-04-08 23:15:00 Saleem Edward [facility] MAGNESIUM 2023-04-08 23:15:00 Saleem Edward [facility] TROPONIN I 2023-04-08 23:15:00 [facility] COMP. METABOLIC PANEL ([id number]) 2023-04-08 23:15:00 Saleem Edward [facility] CBC WITH DIFF 2023-04-08 23:15:00 Saleem Edward [facility] CONSENT/REFUSAL FOR DIAGNOSIS AND TREATMENT 2023-04-08 21:57:42 Doctor Unassigned, Currie [facility] CT ABDOMEN PELVIS W CONTRAST 2023-03-10 03:38:58 Roberto Richards [facility] POCT TEST 2023-03-10 02:51:00 Alberta Richards [facility] URINALYSIS 2023-03-10 01:49:00 [facility] LIPASE 2023-03-10 01:46:00 [facility] COMP. METABOLIC PANEL ([id number]) 2023-03-10 01:46:00 Roberto Richards [facility] CBC WITH DIFF 2023-03-10 01:46:00 Roberto Richards [facility] CONSENT/REFUSAL FOR DIAGNOSIS AND TREATMENT 2023-03-10 01:36:24 Doctor Unassigned, Currie [facility] CONSENT/REFUSAL FOR DIAGNOSIS AND TREATMENT 2023-03-10 01:14:40 Doctor Unassigned, Currie [facility] CT ABDOMEN PELVIS W CONTRAST 2023-03-02 05:16:35 Olivia Garcia [facility] POCT TEST 2023-03-02 03:26:00 Olivia Garcia [facility] LIPASE 2023-03-02 03:23:00 Jose Msrita [facility] COMP. METABOLIC PANEL ([id number]) 2023-03-02 03:23:00 Olivia Garcia [facility] CBC WITH DIFF 2023-03-02 03:23:00 Olivia Garcia [facility] URINALYSIS 2023-03-02 03:23:00 Olivia Garcia [facility] CONSENT/REFUSAL FOR DIAGNOSIS AND TREATMENT 2023-03-02 00:22:44 Doctor Unassigned, Currie [facility] CONSENT/REFUSAL FOR DIAGNOSIS AND TREATMENT 2023-02-18 03:44:46 Doctor Unassigned, Currie [facility] LIPASE 2023-02-17 09:28:00 [facility] ([id number]) (ALB,T.PRO,BILI T,BU/BC,ALT,AST,ALK PHOS) 2023-02-17 09:28:00 Jesús Montero [facility] BASIC METABOLIC PANEL (NA, K, CL, CO2, GLUCOSE, BUN, CREATININE, CA) 2023-02-17 09:28:00 [facility]23-02-17 09:28:00 [facility] LIPASE 2023-02-16 18:24:00 Jesús Montero [facility] HEPATIC FUNCTION PANEL ([id number]) (ALB,T.PRO,BILI T,BU/BC,ALT,AST,ALK PHOS) 2023-02-16 18:24:00 Kylah [facility] BASIC METABOLIC PANEL (NA, K, CL, CO2, GLUCOSE, BUN, CREATININE, CA) 2023-02-16 18:24:00 Kyl[facility] CBC WITH DIFF 2023-02-16 18:23:00 Kylah Jesús [facility] CT ABDOMEN PELVIS W CONTRAST 2023-02-15 23:29:00 Leeanne Wise [facility] LIPASE 2023-02-15 21:45:00 Leeanne Wise [facility] COMP. METABOLIC PANEL ([id number]) 2023-02-15 21:45:00 Leeanne Wise [facility] CBC WITH DIFF 2023-02-15 21:45:00 Leeanne Wise [facility] D-DIMER 2023-02-15 19:55:00 Leeanne Wise [facility] URINALYSIS 2023-02-15 19:50:00 Leeanne Wise [facility] RAPID INFLUENZA A/B 2023-02-15 19:50:00 Leeanne Wise [facility] COVID-19 (ID NOW RAPID TESTING) 2023-02-15 19:50:00 Leeanne Wise [facility] XR CHEST 1 VW 2023-02-15 19:38:00 Leeanne Wise [facility] ASSIGNMENT OF BENEFITS 2023-02-15 19:26:58 Docto r Unassigned, Currie [facility] HB ECG ROUTINE & RHYTHM STRIP 2023-02-15 19:07:40 Leeanne Wise [facility] NOTICE OF PRIVACY PRACTICES 2023-02-15 18:24:07 Doctor Unassigned, Currie [facility] CONSENT/REFUSAL FOR DIAGNOSIS AND TREATMENT 2023-02-15 18:23:04 Doctor Unassigned, Currie [facility] TROPONIN I 2022-01-10 00:32:00 Melida Longoria [facility] TROPONIN I 2022-01-09 22:17:00 Melida Longoria [facility] BASIC METABOLIC PANEL (NA, K, CL, CO2, GLUCOSE, BUN, CREATININE, CA) 2022-01-09 22:17:00 Melida Longoria [facility] CBC WITH DIFF 2022-01-09 22:17:00 Melida Longoria [facility] N-TERMINAL PRO-BNP 2022-01-09 22:17:00 Melida Longoria [facility] XR CHEST 1 VW 2022-01-09 22:11:00 Melida Longoria [facility] CONSENT/REFUSAL FOR DIAGNOSIS AND TREATMENT 2022-01-09 21:34:15 Doctor Unassigned, Currie [facility] TROPONIN I 2021-12-14 05:39:00 Wil Mcqueen [facility] XR CHEST 1 VW 2021-12-14 04:39:00 Wil Mcqueen [facility] POCT TEST 2021-12-14 04:20:00 Wil Mcqueen [facility] URINALYSIS 2021-12-14 03:57:00 Wil Mcqueen [facility] LIPASE 2021-12-14 03:43:00 Wil Mcqueen [facility] TROPONIN I 2021-12-14 03:43:00 Wil Mcqueen [facility] FREE T4 2021-12-14 03:43:00 Wil Mcqueen [facility] THYROID STIMULATING HORMONE 2021-12-14 03:43:00 Wil Mcqueen [facility] COMP. METABOLIC PANEL ([id number]) 2021-12-14 03:43:00 Wil Mcqueen [facility] CBC WITH DIFF 2021-12-14 03:43:00 Wil Mcqueen [facility] FREE T3 2021-12-14 03:43:00 Wil [facility] CONSENT/REFUSAL FOR DIAGNOSIS AND TREATMENT 2021-12-14 02:58:21 Doctor Unassigned, Currie [facility] TROPONIN I 2021-11-12 03:04:00 Dee Wang [facility] POCT TEST 2021-11-12 02:56:00 Tra Wang [facility] URINE DRUG (IMMUNOASSAY) - COMPREHENSIVE DRUG SCREEN 2021-11-12 02:30:00 Dee Wang [facility] URINALYSIS 2021-11-12 02:30:00 Dee Wang [facility] XR CHEST 2 VW 2021-11-12 01:45:03 Dee Wang [facility] LIPASE 2021-11-12 01:34:00 Dee Wang [facility] TROPONIN I 2021-11-12 01:34:00 Dee Wang [facility] COMP. METABOLIC PANEL ([id number]) 2021-11-12 01:34:00 Dee Wang [facility] CBC WITH DIFF 2021-11-12 01:34:00 Dee Wang [facility] N-TERMINAL PRO-BNP 2021-11-12 01:34:00 Mckinley Wang [facility] CONSENT/REFUSAL FOR DIAGNOSIS AND TREATMENT 2021-11-12 00:36:34 Doctor Unassigned, Currie [facility] CT ABDOMEN PELVIS W CONTRAST 2021-09-12 02:49:43 Dee Wang [facility] COVID-19 (ID NOW RAPID TESTING) 2021-09-12 02:23:00 Dee Wang [facility] POCT TEST 2021-09-12 02:21:00 Tra Wang [facility] POCT TEST 2021-09-12 01:45:00 Olivia Garcia [facility] URINALYSIS 2021-09-12 01:43:00 Olivia Garcia [facility] LIPASE 2021-09-12 01:40:00 Olivia Garcia [facility] COMP. METABOLIC PANEL ([id number]) 2021-09-12 01:40:00 Olivia Garcia [facility] CBC WITH DIFF 2021-09-12 01:40:00 Olivia Garcia [facility] CONSENT/REFUSAL FOR DIAGNOSIS AND TREATMENT 2021-09-12 01:26:55 Doctor Unassigned, Currie [facility] XR LUMBAR SPINE 1 VW 2021-08-15 07:03:00 Angeles Garcia i [facility] URINALYSIS 2021-08-15 06:35:00 Olivia Garcia [facility] POCT TEST 2021-08-15 06:35:00 Olivia Garcia [facility] NOTICE OF PRIVACY PRACTICES 2021-08-15 06:01:56 Doctor Unassigned, Currie [facility] CONSENT/REFUSAL FOR DIAGNOSIS AND TREATMENT 2021-08-15 05:25:54 Doctor Unassigned, Currie [facility] TROPONIN I 2021-05-28 07:50:00 Cem Choi [facility] D-DIMER 2021-05-28 07:05:00 Cem Choi [facility] XR CHEST 2 VW 2021-05-28 05:46:00 Cem Choi [facility] POCT TEST 2021-05-28 05:32:00 Cem Choi [facility] LIPASE 2021-05-28 05:29:00 eCm Choi [facility] TROPONIN I 2021-05-28 05:29:00 Cem Choi [facility] COMP. METABOLIC PANEL (82198) 2021-05-28 05:29:00 Cem Choi [facility] CBC WITH DIFF 2021-05-28 05:29:00 Cem Choi [facility] N-TERMINAL PRO-BNP 2021-05-28 05:29:00 Cem Choi [facility] COVID-19 (ID NOW RAPID TESTING) 2021-05-28 05:29:[facility] 2021-04-08 10:01:00 Brittni Romero [facility] BASIC METABOLIC PANEL (NA, K, CL, CO2, GLUCOSE, BUN, CREATININE, CA) 2021-04-08 10:01:00 Brittni Romero [facility] CBC WITH DIFF 2021-04-08 10:01:00 Brittni Romero [facility] TROPONIN I 2021-04-08 04:12:00 Brittni Romero [facility] XR CHEST 1 VW 2021-04-07 22:33:33 Roberto Richards [facility] LIPASE 2021-04-07 21:52:00 [facility] MAGNESIUM 2021-04-07 21:52:00 Brittni Romero [facility] TROPONIN I 2021-04-07 21:52:00 [facility] THYROID STIMULATING HORMONE 2021-04-07 21:52:00 Brittni Romero [facility] COMP. METABOLIC PANEL (77853) 2021-04-07 21:52:00 Roberto Richards [facility] LIPID PANEL (20601)(TOTAL CHOLESTEROL, TRIGLYCERIDES, HDL) 2021-04-07 21:52:00 Brittni Romero [facility] CBC WITH DIFF 2021-04-07 21:52:00 Roberto Richards [facility] GLYCOSYLATED HEMOGLOBIN (A1C) 2021-04-07 21:52:00 Brittni Romero [facility] PROTHROMBIN TIME / INR 2021-04-07 21:52:00 Jalen Richards [facility] ACTIVATED PARTIAL THRMPLAS MARCIO 2021-04-07 21:52:00 Roberto Richards [facility] N-TERMINAL PRO-BNP 2021-04-07 21:52:00 Roberto Richards [facility] COVID-19 (ID NOW RAPID TESTING) 2021-04-07 21:51:00 Roberto Richards [facility] HB ECG ROUTINE & RHYTHM STRIP 2021-04-07 21:38:41 Roberto Richards [facility] CONSENT/REFUSAL FOR DIAGNOSIS AND TREATMENT 2021-04-07 21:17:47 Doctor Unassigned, Currie [facility] CT ABDOMEN PELVIS WO CONTRAST 2021-01-12 08:10:17 Singer [facility] POCT TEST 2021-01-12 08:02:00 Jaquan Narvaez [facility] URINALYSIS 2021-01-12 07:58:00 Singer [facility] COMP. METABOLIC PANEL (06678) 2021-01-12 07:56:00 Singer [facility] CBC WITH DIFF 2021-01-12 07:56:00 Singer [facility] TROPONIN I 2020-12-11 00:47:00 [facility] VW 2020-12-10 22:40:57 Bal Hassan [facility] POCT TEST 2020-12-10 22:32:00 Suzanna Hassan [facility] URINALYSIS 2020-12-10 22:30:00 [facility] 2020-12-10 22:24:00 Mo [facility] TROPONIN I 2020-12-10 22:24[facility] (43809) (ALB,T.PRO,BILI T,BU/BC,ALT,AST,ALK PHOS) 2020-12-10 22:24:00 Mo [facility] BASIC METABOLIC PANEL (NA, K, CL, CO2, GLUCOSE, BUN, CREATININE, CA) 2020-12-10 22:24:00 Bal Hassan [facility] CBC WITH DIFF 2020-12-10 22:24:00 Bal Hassan [facility] D-DIMER 2020-12-10 22:24:00 Bal Hassan [facility] N-TERMINAL PRO-BNP 2020-12-10 22:24:00 Mirtha Hassan [facility] POCT TEST 2020-12-04 21:18:00 [facility] 2020-12-04 21:17:00 Hernan [facility] LIPASE 2020-12-04 20:20:00 Hernan [facility] TROPONIN I 2020-12-04 20:20:00 Hernan [facility] HEPATIC FUNCTION PANEL (13656) (ALB,T.PRO,BILI T,BU/BC,ALT,AST,ALK PHOS) 2020-12-04 20:20:00 [facility] BASIC MET[facility]OLIC PANEL (NA, K, CL, CO2, GLUCOSE, BUN, CREATININE, CA) 2020-12-04 20:20:00 [facility] CBC WITH DIFF 2020-12-04 20:20:00 [facility] XR CHEST 1 VW 2020-12-04 20:16:54 Tremaine [facility] XR ANKLE 3+ VW LEFT 2020-12-04 20:16:54 [facility] CONSENT/REFUSAL FOR DIAGNOSIS AND TREATMENT 2020-12-04 19:43:45 Doctor Unassigned, Currie [facility] XR CHEST 1 VW 2020-11-04 02:24:02 Olivia Garcia [facility] URINE DRUG (IMMUNOASSAY) - 4 ER PANEL 2020-11-04 02:19:00 Olivia Garcia [facility] URINALYSIS 2020-11-04 02:19:00 Olivia Garcia [facility] LIPASE 2020-11-04 02:16:00 Olivia Garcia [facility] TROPONIN I 2020-11-04 02:16:00 Olivia Garcia [facility] COMP. METABOLIC PANEL (37311) 2020-11-04 02:16:00 Olivia Garcia [facility] CBC WITH DIFF 2020-11-04 02:16:00 Olivia Garcia [facility] PROTHROMBIN TIME / INR 2020-11-04 02:16:00 Lucia Garcia [facility] ACTIVATED PARTIAL THRMPLAS MARCIO 2020-11-04 02:16:00 Olivia Garcia [facility] CONSENT/REFUSAL FOR DIAGNOSIS AND TREATMENT 2020-11-04 01:11:16 Doctor Unassigned, [facility]rie [facility] XR CHEST 1 VW 2020-09-17 17:32:21 Leeanne Wise [facility] RAPID STREP SCREEN FOR GROUP A 2020-09-17 16:31:00 Leeanne Wise [facility] COVID-19 (ID NOW RAPID TESTING) 2020-09-17 16:31:00 Leeanne Wise [facility] NOTICE OF PRIVACY PRACTICES 2020-09-17 15:47:38 Doctor Unassigned, [facility]rie [facility] CONSENT/REFUSAL FOR DIAGNOSIS AND TREATMENT 2020-09-17 15:47:07 Doctor Unassigned, [facility]rie [facility] XR FOREARM 2 VW LEFT 2020-09-07 06:59:53 Saleem Edward [facility] XR HAND 3+ VW LEFT 2020-09-07 06:59:53 Saleem Edward [facility] NOTICE OF PRIVACY PRACTICES 2020-09-07 06:06:09 Doctor Unassigned, [facility]rie [facility] CONSENT/REFUSAL FOR DIAGNOSIS AND TREATMENT 2020-09-07 06:03:10 Doctor Unassigned, Currie [facility] CT ABDOMEN PELVIS W CONTRAST 2020-08-28 09:16:08 Olivia Garcia [facility] POCT TEST 2020-08-28 08:45:00 Olivia Garcia [facility] URINALYSIS 2020-08-28 08:43:00 Olivia Garcia [facility] LIPASE 2020-08-28 08:09:00 [facility] COMP. METABOLIC PANEL (84349) 2020-08-28 08:09:00 Olivia Garcia [facility] CBC WITH DIFF 2020-08-28 08:09:00 Olivia Garcia [facility]W 2020-08-14 18:10:03 Best Taylor [facility] LIPASE 2020-08-14 17:58:00 Best Taylor [facility] TROPONIN I 2020-08-14 17:58:00 Best Taylor [facility] COMP. METABOLIC PANEL (02803) 2020-08-14 17:58:00 Best Taylor [facility] CBC WITH DIFF 2020-08-14 17:58:00 Best Taylor [facility] URINALYSIS 2020-08-14 17:58:00 Best Taylor [facility] LACTIC ACID WHOLE BLOOD 2020-08-14 17:58:00 Sophie Taylor [facility] ADC / LCC - DRUG SCREEN TRIAGE 2020-08-14 17:58:00 Best Taylor [facility] CONSENT/REFUSAL FOR DIAGNOSIS AND TREATMENT 2020-08-14 17:33:16 Doctor Unassigned, Currie [facility] CT ABDOMEN PELVIS WO CONTRAST 2020-08-11 04:11:07 Best Taylor [facility] XR CHEST 1 VW 2020-08-11 03:56:48 Best Taylor [facility] POCT TEST 2020-08-11 03:10:00 Best Taylor [facility] BLOOD CULTURE SCREEN 2020-08-11 02:01:00 Best Taylor [facility] BLOOD CULTURE SCREEN 2020-08-11 01:45:00 Best Taylor [facility] LIPASE 2020-08-11 01:45:00 Best Taylor [facility] TROPONIN I 2020-08-11 01:45:00 [facility] HEPATIC FUNCTION PANEL ([id number]) (ALB,T.PRO,BILI T,BU/BC,ALT,AST,ALK PHOS) 2020-08-11 01:45:00 Best Taylor [facility] BASIC METABOLIC PANEL (NA, K, CL, CO2, GLUCOSE, BUN, CREATININE, CA) 2020-08-11 01:45:00 Best Taylor [facility] CBC WITH DIFF 2020-08-11 01:45:00 Best Taylor [facility] URINALYSIS 2020-08-11 01:45:00 [facility] LACTIC ACID WHOLE BLOOD 2020-08-11 01:45:00 Sophie Taylor [facility] COVID-19 (ID NOW RAPID TESTING) 2020-08-11 01:45:00 Best Taylor [facility] CONSENT/REFUSAL FOR DIAGNOSIS AND TREATMENT 2020-08-11 00:12:54 Doctor Unassigned, Currie [facility] XR FOREARM 2 VW LEFT 2020-08-07 14:03:06 Unique Richards [facility] COVID-19 (ID NOW RAPID TESTING) 2020-08-07 13:35:00 Roberto Richards [facility] NOTICE OF PRIVACY PRACTICES 2020-08-07 13:13:25 Doctor Unassigned, Currie [facility] CONSENT/REFUSAL FOR DIAGNOSIS AND TREATMENT 2020-08-07 13:11:06 Doctor Unassigned, Currie [facility] CONSENT/REFUSAL FOR DIAGNOSIS AND TREATMENT 2020-08-07 13:10:57 Doctor Unassigned, Currie [facility] TROPONIN I 2020-07-01 02:03:00 Abdias Robertson [facility] POCT TEST 2020-07-01 00:51:00 Abdias Robertson [facility] URINALYSIS 2020-07-01 00:48:00 Abdias Robertson [facility] CBC WITH DIFF 2020-07-01 00:12:00 Abdias [facility] EXTRA TUBE LT. BLUE 2020-07-01 00:12:00 Abdias Robertson [facility] LIPASE 2020-07-01 00:09:00 Abdias Robertson [facility] TROPONIN I 2020-07-01 00:09:00 [facility] BASIC METABOLIC PANEL (NA, K, CL, CO2, GLUCOSE, BUN, CREATININE, CA) 2020-07-01 00:09:00 [facility] ADC,CLC OR LCC ONLY - INFLUENZA A & B DIRECT ANTIGEN 2020-07-01 00:09:00 Ailyn [facility] N-TERMINAL PRO-BNP 2020-07-01 00:09:00 [facility] XR CHEST 1 VW 2020-07-01 00:07:07 Abdias Robertson [facility] NOTICE OF PRIVACY PRACTICES 2020-06-30 23:27:46 Doctor Unassigned, Currie [facility] CT CERVICAL SPINE WO CONTRAST 2020-06-28 23:12:00 Narayan Narvaez [facility] CONSENT/REFUSAL FOR DIAGNOSIS AND TREATMENT 2020-06-28 21:52:44 Doctor Unassigned, Currie [facility] POCT TEST 2020-06-13 01:50:00 Leeanne Wise [facility] XR CHEST 1 VW 2020-06-13 01:18:17 Leeanne Wise [facility] URINALYSIS 2020-06-13 00:34:00 Leeanne Wise [facility] COVID-19 (ID NOW RAPID TESTING) 2020-06-13 00:34:00 Leenane Wise [facility] LIPASE 2020-06-13 00:33:00 Leeanne Wise [facility] TROPONIN I 2020-06-13 00:33:00 Leeanne Wise [facility] HEPATIC FUNCTION PANEL (27149) (ALB,T.PRO,BILI T,BU/BC,ALT,AST,ALK PHOS) 2020-06-13 00:33:00 Leeanne Wise [facility] BASIC METABOLIC PANEL (NA, K, CL, CO2, GLUCOSE, BUN, CREATININE, CA) 2020-06-13 00:33:00 Leeanne Wise [facility] CBC WITH DIFF 2020-06-13 00:33:00 Leeanne Wise [facility] D-DIMER 2020-06-13 00:33:00 Candi Wiseala rKistin [facility] CONSENT/REFUSAL FOR DIAGNOSIS AND TREATMENT 2020-06-12 23:27:48 Doctor Unassigned, Currie [facility] COVID-19 (ID NOW RAPID TESTING) 2020-05-16 23:50:00 Bushra Rios [facility] LIPASE 2020-05-16 23:21:00 [facility] (76805) (ALB,T.PRO,BILI T,BU/BC,ALT,AST,ALK PHOS) 2020-05-16 23:21:00 Bushra Rios [facility] BASIC METABOLIC PANEL (NA, K, CL, CO2, GLUCOSE, BUN, CREATININE, CA) 2020-05-16 23:21:00 Bushra Rios [facility] CBC WITH DIFF 2020-05-16 23:21:00 Bush[facility] AC[facility]AMIN[facility]HEN 2020-05-15 07:42:00 Roberto Richards [facility] CT ABDOMEN PELVIS W CONTRAST 2020-05-15 06:56:53 Roberto Richards [facility] CT HEAD WO CONTRAST 2020-05-15 06:56:27 Alberta Richards [facility] POCT TEST 2020-05-15 05:53:00 Alberta Richards [facility] LIPASE 2020-05-15 05:52:00 Roberto Richards [facility] HEPATIC FUNCTION PANEL (57003) (ALB,T.PRO,BILI T,BU/BC,ALT,AST,ALK PHOS) 2020-05-15 05:52:00 Roberto Richards [facility] BASIC METABOLIC PANEL (NA, K, CL, CO2, GLUCOSE, BUN, CREATININE, CA) 2020-05-15 05:52:00 Roberto Richards [facility] ETHANOL 2020-05-15 05:52:00 Roberto Richards [facility] CBC WITH DIFF 2020-05-15 05:52:00 Roberto Richards [facility] PROTHROMBIN TIME / INR 2020-05-15 05:52:00 Jalen Richards [facility] ACTIVATED PARTIAL THRMPLAS MARCIO 2020-05-15 05:52:00 Roberto Richards [facility] URINALYSIS 2020-05-15 05:52:00 Roberto Richards [facility] ADC / LCC - DRUG SCREEN TRIAGE 2020-05-15 05:52:00 Roberto Richards [facility] NOTICE OF PRIVACY PRACTICES 2020-05-15 05:12:38 Doctor Unassigned, [facility]rie [facility] CONSENT/REFUSAL FOR DIAGNOSIS AND TREATMENT 2020-05-15 05:12:26 Doctor Unassigned, [facility] Encounters Start Date/Time End Date/Time Encounter Type Admission Type Attending [facility] Care Facility Care Department Encounter ID Source 2024-04-22 09:15:00 2024-04-22 09:15:00 Outpatient FARTUN GILLESPIE [id number] [facility] 2024-03-06 11:00:00 2024-03-06 11:00:00 Outpatient JOANNE MONTES [id number] [facility] 2024-02-06 11:00:00 2024-02-06 11:00:00 Outpatient GISELLE OSORIO [id number] [facility] 2024-02-06 10:40:00 2024-02-06 10:40:00 Outpatient KELLEE DORMAN [id number] [facility] 2024-02-06 00:00:00 2024-02-06 00:00:00 Outpatient HUNDL, JOANNE DORMAN [id number] [facility] 2024-02-05 00:00:00 2024-02-05 00:00:00 Outpatient HUNDL, JOANNE DORMAN [id number] [facility] 2024-01-14 09:30:00 2024-01-14 09:30:00 Outpatient HUNDL, JOANNE DORMAN [id number] [facility] 2024-01-09 00:00:00 2024-01-09 00:00:00 Outpatient HUNDL, JOANNE DORMAN [id number] [facility] 2024-01-06 00:00:00 2024-01-06 00:00:00 Outpatient HUNDL[facility] [id number] [facility]24-[facility]-03 00:00:00 2024-01-03 00:00:00 Outpatient HUNDL, JOANNE DORMAN [id number] [facility] 2024-01-02 14:00:00 2024-01-02 14:00:00 Outpatient HUNDL, JOANNE DORMAN [id number] [facility] 2023-12-13 09:30:00 2023-12-13 09:30:00 Outpatient HUNDL, JOANNE DORMAN [id number] [facility] 2023-12-09 00:00:00 2023-12-09 00:00:00 Outpatient HUNDL, JOANNE DORMAN [id number] [facility] 2023-12-05 00:00:00 2023-12-05 00:00:00 Outpatient HUNDL, JOANNE DORMAN [id number] [facility] 2023-12-03 11:45:00 2023-12-03 11:45:00 Outpatient LAB90 KELLEE DORMAN [id number] [facility] 2023-12-03 11:00:00 2023-12-03 11:00:00 Outpatient HUNDL, JOANNE DORMAN [id number] [facility] 2023-11-26 00:00:00 2023-11-26 00:00:00 Outpatient JOANNE MONTES [id number] [facility] 2023-10-31 00:00:00 2023-10-31 00:00:00 Outpatient COSMO DORMAN [id number] [facility] 2023-10-31 00:00:00 2023-10-31 00:00:00 Outpatient COSMO DORMAN [id number] [facility] 2023-10-29 14:15:00 2023-10-29 14:15:00 Outpatient LAB90 KELLEE DORMAN [id number] [facility] 2023-10-29 13:30:00 2023-10-29 13:30:00 Outpatient JOANNE MONTES [id number] [facility] 2023-10-10 21:31:00 2023-10-11 00:43:00 Emergency X OLIVIA GARCIA RUST ERT [id number] [facility] 2023-10-10 21:31:00 2023-10-11 00:43:00 Emergency Frederick Garciaamanda Shankar [facility] 1.2.840.114 350.1.13.10 4.2.7.2.686 [id number] [facility] 2023-08-31 18:02:00 2023-08-31 22:40:00 Emergency ER SHERIDAN MCMANUS [facility] [id number] [facility] 2023-08-31 18:02:00 2023-08-31 22:40:00 emergency [facility] [id number] 2023-07-01 19:50:00 2023-07-01 22:59:00 Emergency X ROBERTO RICHARDS RUST ERT [id number] [facility] 2023-07-01 19:50:00 2023-07-01 22:59:00 Emergency Roberto Richards [facility] [id number] 350.1.13.10 4.2.7.2.686 [id number] [facility] 2023-06-04 23:37:00 2023-06-06 13:30:00 Inpatient ER SHAN BUSCH [facility] [id number] [facility] 2023-06-04 23:37:00 2023-06-06 13:30:00 observatio n encounter [facility] [id number] [facility] [id number] 24 2023-05-11 01:16:00 2023-05-13 17:04:00 Inpatient ER RIDDHI MYLES [facility] [id number] [facility] 2023-05-11 01:16:00 2023-05-13 17:04:00 observatio n encounter [facility] [id number] [facility] [id number] 24 2023-05-10 21:48:00 2023-05-10 21:48:00 Emergency ER LINKRUELSUZETTEDEREKAN Su [facility] [id number] [facility] 2023-05-09 17:40:00 2023-05-09 20:30:00 Emergency X NARAYAN NARVAEZ RUST ERT [id number] [facility] 2023-05-09 17:40:00 2023-05-09 20:30:00 Emergency Narayan Narvaez [facility] 1.2.840.114 350.1.13.10 4.2.7.2.686 [id number] [facility] 2023-05-05 21:31:00 2023-05-06 03:15:00 Emergency ER SHERIDAN MCMANUS [facility] [id number] [facility] 2023-05-05 21:31:00 2023-05-06 03:15:00 emergency [facility] [id number] 2023-04-30 17:18:00 2023-04-30 21:20:00 Emergency NARAYAN MATA RUST ERT [id number] [facility] 2023-04-30 17:18:00 2023-04-30 21:20:00 Emergency Narayan Narvaez [facility] 1.2.840.114 350.1.13.10 4.2.7.2.686 [id number] [facility] 2023-04-16 20:40:00 2023-04-16 23:10:00 Emergency ROEBRTO TOBIN RUST ERT [id number] [facility] 2023-04-16 20:40:00 2023-04-16 23:10:00 Emergency Roberto Richards [facility] 1.2.840.114 350.1.13.10 4.2.7.2.686 [id number] [facility] 2023-04-08 17:28:00 2023-04-08 21:20:00 Emergency X Saleem EDWARD RUST ERT [id number] [facility] 2023-04-08 17:28:00 2023-04-08 21:20:00 Emergency Saleem Edward Eleni [facility] 1.2.840.114 350.1.13.10 4.2.7.2.686 [id number] [facility] 2023-03-09 20:23:00 2023-03-10 00:20:00 Emergency X ROBERTO RICHARDS RUST ERT [id number] [facility] 2023-03-09 20:23:00 2023-03-10 00:20:00 Emergency Roberto Richards [facility] [id number] 350.1.13.10 4.2.7.2.686 [id number] [facility] 2023-03-01 19:35:00 2023-03-02 01:35:00 Emergency X OLIVIA GARCIA RUST ERT [id number] [facility] 2023-03-01 19:35:00 2023-03-02 01:35:00 Emergency Olivia Garcia [facility] 1.2.840.114 350.1.13.10 4.2.7.2.686 [id number] [facility] 2023-02-17 22:58:00 2023-02-18 02:22:00 Emergency X TATIANA BRITTNI RUST ERT [id number] [facility] 2023-02-17 22:58:00 2023-02-18 02:22:00 Emergency PadgettBrittni [facility] 1.2.840.114 350.1.13.10 4.2.7.2.686 [id number] [facility] 2023-02-15 13:46:00 2023-02-17 16:14:00 Outpatient X JESÚS MONTERO RUST ALTHEA [id number] [facility] 2023-02-15 13:46:00 2023-02-17 16:14:00 [facility] 1.2.840.114 350.1.13.10 4.2.7.2.686 [id number] [facility] 2022-01-17 10:48:00 2022-01-17 10:48:00 Outpatient CATHIE HUYNH [facility] [id number] 2022-01-09 16:47:00 2022-01-09 20:28:00 Emergency X MELIDA LONGORIA RUST ERT [id number] [facility] 2022-01-09 16:47:00 2022-01-09 20:28:00 Emergency Melida Longoria [facility] 1.2.840.114 350.1.13.10 4.2.7.2.686 [id number] [facility] 2021-12-13 22:16:00 2021-12-14 02:28:00 Emergency X AZUCENA MCQUEENN RUST ERT [id number] [facility] 2021-12-13 22:16:00 2021-12-14 02:28:00 Emergency Azucena Mcqueenn Belle [facility] 1.2.840.114 350.1.13.10 4.2.7.2.686 [id number] [facility] 2021-11-11 19:50:00 2021-11-11 23:17:00 Emergency X DEE WANG RUST ERT [id number] [facility] 2021-11-11 19:50:00 2021-11-11 23:17:00 Emergency Dee Wang [facility] 1.2.840.114 350.1.13.10 4.2.7.2.686 [id number] [facility] 2021-11-11 00:00:00 2021-11-11 00:00:00 Orders Only Doctor Unassigned, Currie [facility] 1.2.840.114 350.1.13.10 4.2.7.2.686 [id number] [facility] 2021-09-11 19:42:00 2021-09-11 23:02:00 Emergency X DEE WANG RUST ERT [id number] [facility] 2021-09-11 19:42:00 2021-09-11 23:02:00 Emergency Dee Wang [facility] 1.2.840.114 350.1.13.10 4.2.7.2.686 [id number] [facility] 2021-08-14 23:38:00 2021-08-15 02:29:00 Emergency X OLIVIA GARCIA RUST ERT [id number] [facility] 2021-08-14 23:38:00 2021-08-15 02:29:00 Emergency Olivia Garcia [facility] 1.2.840.114 350.1.13.10 4.2.7.2.686 [id number] [facility] 2021-05-27 23:23:00 2021-05-28 04:23:00 Emergency X CEM CHOI RUST ERT [id number] [facility] 2021-05-27 23:23:00 2021-05-28 04:23:00 Emergency Cem Choi [facility] 1.2.840.114 350.1.13.10 4.2.7.2.686 [id number] [facility] 2021-04-10 00:00:00 2021-04-10 00:00:00 Transition of Care Shelley Rosas Marcinami Haja Rios 1.2.840.114 350.1.13.10 4.2.7.2.686 [id number] [facility] 2021-04-07 16:30:00 2021-04-08 17:45:00 Hospital Encounter Roberto Richards Jelani [facility] 1.2.840.114 350.1.13.10 4.2.7.2.686 [id number] [facility] 2021-04-07 16:18:00 2021-04-07 16:18:00 Emergency X RUST ERT [id number] [facility] 2021-01-12 03:01:00 2021-01-12 04:56:00 Emergency Narayan Narvaez [facility] 1.2.840.114 350.1.13.10 4.2.7.2.686 [id number] [facility] 2021-01-12 03:01:00 2021-01-12 03:01:00 Emergency X NARAYAN NARVAEZ RUST ERT [id number] [facility] 2020-12-10 17:12:00 2020-12-10 21:14:00 Emergency Bal Hassan [facility] 1.2.840.114 350.1.13.10 4.2.7.2.686 [id number] [facility] 2020-12-10 17:12:00 2020-12-10 17:12:00 Emergency X BAL HASSAN RUST ERT [id number] [place] [facility] 2020[facility]04 14:50:00 2020-12-04 17:08:00 Emergency EbTremaine stratton [facility] 1.2.840.114 350.1.13.10 4.2.7.2.686 [id number] 084 [id number] [facility] 2020-12-04 14:50:00 2020-12-04 17:08:00 Emergency X TREMAINE BECERRA RUST ERT [id number] [facility] 2020-11-03 20:44:00 2020-11-03 23:34:00 Emergency Poncegage Leeanne Foster [facility] 1.2.840.114 350.1.13.10 4.2.7.2.686 [id number] 084 [id number] [facility] 2020-11-03 20:44:00 2020-11-03 23:34:00 Emergency X LEEANNE WISE RUST ERT [id number] [facility] 2020-09-19 12:32:00 2020-09-19 14:15:00 Emergency ER MORA POLLOCK [facility] [id number] [facility] 2020-09-17 09:53:00 2020-09-17 11:55:00 Emergency Leeanne Wise [facility] 1.2.840.114 350.1.13.10 4.2.7.2.686 [id number] 084 [id number] [facility] 2020-09-17 09:53:00 2020-09-17 11:55:00 Emergency X LEEANNE WISE RUST ERT [id number] [facility] 2020-09-17 09:53:00 2020-09-17 11:55:00 Emergency Leeanne Wise [facility] 1.2.840.114 350.1.13.10 4.2.7.2.686 [id number] 084 [id number] 2020-09-07 00:37:00 2020-09-07 01:41:00 Emergency Saleem Edward [facility] 1.2.840.114 350.1.13.10 4.2.7.2.686 [id number] 084 [id number] [facility] 2020-09-07 00:37:00 2020-09-07 01:41:00 Emergency X Saleem EDWARD RUST ERT [id number] [facility] 2020-09-07 00:37:00 2020-09-07 01:41:00 Emergency Saleem Edward [facility] 1.2.840.114 350.1.13.10 4.2.7.2.686 [id number] 084 [id number] 2020-09-07 00:00:00 2020-09-07 00:00:00 Orders Only Doctor Unassigned, Currie [facility] 1.2.840.114 350.1.13.10 4.2.7.2.686 [id number] 009 [id number] [facility] 2020-09-07 00:00:00 2020-09-07 00:00:00 Orders Only Doctor Unassigned, Currie [facility] 1.2.840.114 350.1.13.10 4.2.7.2.686 [id number] 009 [id number] 2020-08-28 01:59:00 2020-08-28 04:40:00 Emergency Olivia Garcia [facility] 1.2.840.114 350.1.13.10 4.2.7.2.686 [id number] 084 [id number] [facility] 2020-08-28 01:59:00 2020-08-28 04:40:00 Emergency Olivia Garcia [facility] 1.2.840.114 350.1.13.10 4.2.7.2.686 [id number] 084 [id number] 2020-08-28 01:59:00 2020-08-28 01:59:00 Emergency X OLIVIA GARCIA RUST ERT [id number] [facility] 2020-08-14 11:48:00 2020-08-14 13:42:00 Emergency Best Taylor [facility] 1.2.840.114 350.1.13.10 4.2.7.2.686 [id number] 084 [id number] [facility] 2020-08-14 11:48:00 2020-08-14 13:42:00 Emergency ClaudiaBest andrade [facility] 1.2.840.114 350.1.13.10 4.2.7.2.686 [id number] 084 [id number] 2020-08-14 11:33:00 2020-08-14 11:33:00 Emergency X BEST TAYLOR RUST ERT [id number] [facility] 2020-08-10 18:35:00 2020-08-11 00:05:00 [facility] 1.2.840.114 350.1.13.10 4.2.7.2.686 [id number] 084 [id number] [facility] 2020-08-10 18:35:00 2020-08-11 00:05:00 Emergency X OLIVIA GARCIA RUST ERT [id number] [facility] 2020-08-10 18:35:00 2020-08-11 00:05:00 Emergency Best [facility] 1.2.840.114 350.1.13.10 4.2.7.2.686 [id number] 084 [id number] 2020-08-07 07:19:00 2020-08-07 09:02:00 Emergency Maurice [facility] 1.2.840.114 350.1.13.10 4.2.7.2.686 [id number] 084 [id number] [facility] 2020-08-07 07:19:00 2020-08-07 09:02:00 Emergency Maurice [facility] 1.2.840.114 350.1.13.10 4.2.7.2.686 [id number] 084 [id number] 2020-08-07 07:12:00 2020-08-07 07:12:00 Emergency X RUST ERT [id number] [facility] 2020-08-07 00:00:00 2020-08-07 00:00:00 Orders Only Doctor Unassigned, Currie [facility] 1.2.840.114 350.1.13.10 4.2.7.2.686 [id number] [id number] [facility] 2020-08-07 00:00:00 2020-08-07 00:00:00 Orders Only Doctor Unassigned, Currie [facility] 1.2.840.114 350.1.13.10 4.2.7.2.686 [id number] 009 [id number] 2020-07-01 00:00:00 2020-07-01 00:00:00 Letter (Out) [facility] 1.2.840.114 350.1.13.10 4.2.7.2.686 [id number] 019 [id number] [facility] 2020-07-01 00:00:00 2020-07-01 00:00:00 Letter (Out) [facility] 1.2.840.114 350.1.13.10 4.2.7.2.686 [id number] 019 [id number] 2020-06-30 17:46:00 2020-06-30 21:06:00 Emergency Abdias Robertson [facility] 1.2.840.114 350.1.13.10 4.2.7.2.686 [id number] 084 [id number] [facility] 2020-06-30 17:46:00 2020-06-30 21:06:00 Emergency X ABDIAS ROBERTSON RUST ERT [id number] [facility] 2020-06-30 17:46:00 2020-06-30 21:06:00 Emergency Abdias Robertson [facility] 1.2.840.114 350.1.13.10 4.2.7.2.686 [id number] 084 [id number] 2020-06-28 16:00:00 2020-06-28 18:08:00 Emergency Singer [facility] 1.2.840.114 350.1.13.10 4.2.7.2.686 [id number] 084 [id number] [facility] 2020-06-28 16:00:00 2020-06-28 18:08:00 Emergency Singer [facility] 1.2.840.114 350.1.13.10 4.2.7.2.686 [id number] 084 [id number] 2020-06-28 16:00:00 2020-06-28 16:00:00 Emergency X NARAYAN NARVAEZ RUST ERT [id number] [facility] 2020-06-14 00:00:00 2020-06-14 00:00:00 Telephone [facility] 1.2.840.114 350.1.13.10 4.2.7.2.686 [id number] 019 [id number] [facility] 2020-06-14 00:00:00 2020-06-14 00:00:00 [facility] 1.2.840.114 350.1.13.10 4.2.7.2.686 [id number] 019 [id number] 2020-06-12 17:40:00 2020-06-12 22:05:00 Emergency Leeanne Wise [facility] 1.2.840.114 350.1.13.10 4.2.7.2.686 [id number] 084 [id number] [facility] 2020-06-12 17:40:00 2020-06-12 22:05:00 Emergency Leeanne Wise [facility] 1.2.840.114 350.1.13.10 4.2.7.2.686 [id number] 084 [id number] 2020-06-12 17:28:00 2020-06-12 17:28:00 Emergency X RUST ERT [id number] [facility] 2020-05-16 17:10:00 2020-05-16 19:01:00 Emergency Bushra Rios [facility] 1.2.840.114 350.1.13.10 4.2.7.2.686 [id number] 084 [id number] [facility] 2020-05-16 17:10:00 2020-05-16 19:01:00 Emergency Bushra Rios [facility] 1.2.840.114 350.1.13.10 4.2.7.2.686 [id number] 084 [id number] 2020-05-16 17:10:00 2020-05-16 17:10:00 Emergency X BUSHRA RIOS RUST ERT [id number] [facility] 2020-05-14 23:18:00 2020-05-15 02:54:00 Emergency Roberto Richards [facility] 1.2.840.114 350.1.13.10 4.2.7.2.686 [id number] 084 [id number] [facility] 2020-05-14 23:18:00 2020-05-15 02:54:00 Emergency Roberto Richards [facility] 1.2.840.114 350.1.13.10 4.2.7.2.686 [id number] 084 [id number] 2020-05-14 23:14:00 2020-05-14 23:14:00 Emergency X ROBERTO RICHARDS RUST ERT [id number] [facility] 2009-07-18 05:35:00 2009-07-18 09:19:00 Emergency ER SINCERE FRANK [facility] [id number] [facility] 2008-10-08 09:55:00 2008-10-08 14:19:00 Emergency ER GUMARO ALVAREZ [facility] [id number] [facility] 2008-03-26 15:21:00 2008-03-26 18:08:00 Emergency ER NEIL WILKINS [facility] [id number] [facility] 2005-05-25 06:35:00 2005-05-25 06:35:00 Outpatient LISA LUNA [facility] [id number] [facility] 2005-05-16 21:57:00 2005-05-16 23:40:00 Emergency ER JW SOLORZANO [facility] [id number] [facility] 2005-04-24 18:49:00 2005-04-24 22:40:00 Emergency ER JW SOLORZANO [facility] [id number] [facility] 2004-12-27 20:30:00 2004-12-28 01:40:00 Emergency ER SANIA SIBLEY [facility] [id number] [facility] 2003-12-07 22:40:00 2003-12-08 02:48:00 Emergency ER GINA MARTIN [facility] [id number] [facility] 2003-12-06 13:57:00 2003-12-06 18:30:00 Emergency ER YIN RIOS [facility] [id number] [facility] 2003-08-31 19:43:00 2003-08-31 22:55:00 Emergency ER GUMARO ALVAREZ [facility] [id number] [facility] 2003-08-22 19:26:00 2003-08-22 22:10:00 Emergency ER ALBERTO CASTLE [facility] [id number] [facility] 2002-01-30 22:41:00 2002-01-31 01:29:00 Emergency ER ANTHONY SCHNEIDER [facility] [id number] [facility] 2001-10-28 09:15:00 2001-10-28 11:25:00 Emergency ER LINDA DARCIE [facility] [id number] [facility] 2001-04-15 19:14:00 2001-04-15 23:10:00 Emergency ER YESICA ARLETTE [facility] [id number] [facility] 2000-12-25 21:52:00 2000-12-26 00:15:00 Emergency ER GISELA RIOS [facility] [id number] [facility] 2000-12-23 18:51:00 2000-12-23 22:00:00 Emergency ER HUGO COFFMAN [facility] [id number] [facility] 1999-10-26 21:11:00 1999-10-27 00:20:00 Emergency ER JW SOLORZANO [facility] [id number] [facility] Results Test Description Test Time Test [...] clear. There are nosuspicious focal osseous lesions. [facility] [id number] 04:38:58* Test Item Value Reference Range Interpretation Comme nts LIPASE (test code = 8621062986) 136 U/L 0-220 Lab Interpretation (test cod e = 12475-0) [facility] [id number] 04:19:14* Test Item Value Reference Range Interpretation [...] 32.2 g/dL 31.6-35.1 RDW-SD (test code = 75094-7) 50.2 fL 39.0-49.9 H RDW-CV (test code = 788-0) 17.3 % 12.0-15.5 H PLT (test code = 777-3) 377 166-358 H MPV (test code = 71807-0) 9.4 fL 9.5-12.9 L NRBC/100 WBC (test code = 6579773186) 0.0 0.0-10.0 NRBC x10^3 (test code = 5911881383) See_Comment [Automated messa ge] The system which generated this result transmitted reference range: 10*3/?L. The reference range was not used to interpret this result as normal/abnormal. GRAN MAT (NEUT) % (test code = 770-8) 65.3 % IMM GRAN % (test code = 9441389937) 0.40 % LYMPH % (test code = 736-9) 26.1 % MONO % (test code = 5905-5) 6.2 % EOS % (test code = 713-8) 1.6 % BASO % (test code = 706-2) 0.4 % GRAN MAT x10^3(ANC) (test code = 1571289021) 7.33 10*3/uL 1.88-7.09 H IMM GRAN x10^3 (test code = 2770763050) 0.04 10*3/uL 0.00-0.06 LYMPH x10^3 (test code = 731-0) 2.93 10*3/uL 1.32-3.29 MONO x10^3 (test code = 742-7) 0.70 10*3/uL 0.33-0.92 EOS x10^3 (test code = 711-2) 0.18 10*3/uL 0.03-0.39 BASO x10^3 (test code = 704-7) 0.05 10*3/uL 0.01-0.07 Lab Interpretation (test code = 50925-3) Abnormal [facility] [id number] 03:40:00* Test Item Value Reference Range Interpretation Comme nts POCT PREG (test code = 1605) Negative On board controls acceptable with C Line (test code = 3574) Yes POCT PREG LOT # (test code = 3575) [id number] POCT PREG TEST DATE ( test code = 3576) 2024-10-13 Lab Interpretation (test cod e = 14159-5) [facility] [id number] 04:35:04Ordering physician: ROBERTO RICHARDS INDICATION: Abdominal pain COMPARISON: CT of the abdomen and pelv is dated 03/09/2023 FINDINGS: Supine AP view of the abdomen and pelvis. There is no bowelobstruction or generalized constipation.[facility] [id number] 02:30:00* Test Item Value Reference Range Interpretation Comme nts POCT PREG (test code = 1605) Negative On board controls acceptable with C Line (test code = 3574) Yes POCT PREG LOT # (test code = 3575) [id number] POCT PREG TEST DATE ( test code = 357) 2024-09-15 Lab Interpretation (test cod e = 41435-4) [facility] WITH [id number] 00:05:06* Test Item Value Reference Range Interpretation [...] 34.2 g/dL 31.6-35.1 RDW-SD (test code = 86469-7) 41.5 fL 39.0-49.9 RDW-CV (test code = 788-0) 14.5 % 12.0-15.5 PLT (test code = 777-3) 384 See_Comment H [Automated messa ge] The system which generated this result transmitted reference range: 166 - 358 10*3/?L. The reference range was not used to interpret this result as normal/abnormal. MPV (test code = 17020-8) 9.6 fL 9.5-12.9 GRAN MAT (NEUT) % (test code = 770-8) 66.0 % IMM GRAN % (test code = 8962050034) 0.50 % LYMPH % (test code = 736-9) 27.4 % MONO % (test code = 5905-5) 4.6 % EOS % (test code = 713-8) 1.1 % BASO % (test code = 706-2) 0.4 % GRAN MAT x10^3(ANC) (test code = 8550979932) 7.96 10*3/uL 1.88-7.09 H IMM GRAN x10^3 (test code = 0419168794) 0.06 10*3/uL 0.00-0.06 LYMPH x10^3 (test code = 731-0) 3.30 10*3/uL 1.32-3.29 H MONO x10^3 (test code = 742-7) 0.56 10*3/uL 0.33-0.92 EOS x10^3 (test code = 711-2) 0.13 10*3/uL 0.03-0.39 BASO x10^3 (test code = 704-7) 0.05 10*3/uL 0.01-0.07 Lab Interpretation (test code = 77104-0) [facility] (04410)2023-05-09 23:27:13* Test Item Value Reference Range Interpretation Comme nts NA (test code = 4633015758) 137 mmol/L 135-145 K (test code = 5070710085) 3.3 mmol/L 3.5-5.0 L CL (test code = 5020060964) 103 mmol/L 98-108 CO2 TOTAL (test code = 2216659724) 20 mmol/L 23-31 L AGAP (test code = 3806880625) 14 2-16 BUN (test code = 8337988091) 5 mg/dL 7-23 L GLUCOSE (test code = 2275844696) 146 mg/dL 70-110 H CREATININE (test code = 0464179196) 0.60 mg/dL 0.50-1.04 TOTAL BILI (test code = 1235200414) 0.3 mg/dL 0.1-1.1 CALCIUM (test code = 0001534701) 9.3 mg/dL 8.6-10.6 T PROTEIN (test code = 2351975134) 7.9 g/dL 6.3-8.2 ALBUMIN (test code = 1846975944) 4.4 g/dL 3.5-5.0 ALK PHOS (test code = 8783249616) 105 U/L 34-122 ALTv (test code = 1742-6) 38 U/L 5-35 H AST(SGOT) (test code = 4153190438) 21 U/L 13-40 eGFR (test code = 51034-3) 113.7 mL/min/1.73m2 CKD-EPI eGFR (2020). Assuming creatinine has been stable day-to-day for at least three months, the eGFR indicates Category G1 (>= 90 mL/min/1.73 m2) Lab Interpretation (test code = 42482-3) [facility] 23:27:13* Test Item Value Reference Range Interpretation Comme nts LIPASE (test code = 7398743862) 142 U/L 0-220 Lab Interpretation (test cod e = 93316-5) [facility]OLIC PANEL (68034)2023-04-30 23:41:47* Test Item Value Reference Range Interpretation Comme nts NA (test code = 5113049170) 139 mmol/L 135-145 K (test code = 3935007302) 3.3 mmol/L 3.5-5.0 L CL (test code = 4272871820) 105 mmol/L 98-108 CO2 TOTAL (test code = 9593764861) 20 mmol/L 23-31 L AGAP (test code = 0016870908) 14 2-16 BUN (test code = 7313736079) 6 mg/dL 7-23 L GLUCOSE (test code = 5859438112) 119 mg/dL 70-110 H CREATININE (test code = 9745495368) 0.59 mg/dL 0.50-1.04 TOTAL BILI (test code = 9351322358) 0.3 mg/dL 0.1-1.1 CALCIUM (test code = 4988736825) 9.7 mg/dL 8.6-10.6 T PROTEIN (test code = 0112913890) 7.6 g/dL 6.3-8.2 ALBUMIN (test code = 1691987423) 4.2 g/dL 3.5-5.0 ALK PHOS (test code = 8804427515) 78 U/L 34-122 ALTv (test code = 1742-6) 24 U/L 5-35 AST(SGOT) (test code = 2182176230) 24 U/L 13-40 eGFR (test code = 3052297171) 110.7 mL/min/1.73m2 DARWIN (test code = DARWIN) [...] imaging tests). Lab Interpretation (test code = 23231-3) Abnormal [facility] WITH [id number] 23:29:07* Test Item Value Reference Range Interpretation Comme nts WBC (test code = 6690-2) 11.56 See_Comment H [Automated [employer]] The system which generated this result transmitted reference range: 4.30 - 11.10 10*3/?L. The reference range was not used to interpret this result as normal/abnormal. RBC (test code = 789-8) 5.02 See_Comment [Automated [employer]] The system which generated this result transmitted [...] 33.7 g/dL 31.6-35.1 RDW-SD (test code = 14411-9) 41.5 fL 39.0-49.9 RDW-CV (test code = 788-0) 14.3 % 12.0-15.5 PLT (test code = 777-3) 335 See_Comment [Automated [employer]] The system which generated this result transmitted reference range: 166 - 358 10*3/?L. The reference range was not used to interpret this result as normal/abnormal. MPV (test code = 01905-9) 9.7 fL 9.5-12.9 NRBC/100 WBC (test code = 8799946615) 0.0 See_Comment [Automated me ssage] The system which generated this result transmitted reference range: 0.0 - 10.0 /100 WBCs. The reference range was not used to interpret this result as normal/abnormal. NRBC x10^3 (test code = 4181838319) See_Comment [Automated messa ge] The system which generated this result transmitted reference range: 10*3/?L. The reference range was not used to interpret this result as normal/abnormal. GRAN MAT (NEUT) % (test code = 770-8) 65.7 % IMM GRAN % (test code = 1962179692) 0.50 % LYMPH % (test code = 736-9) 25.4 % MONO % (test code = 5905-5) 6.7 % EOS % (test code = 713-8) 1.2 % BASO % (test code = 706-2) 0.5 % GRAN MAT x10^3(ANC) (test code = 4397100789) 7.59 10*3/uL 1.88-7.09 H IMM GRAN x10^3 (test code = 2092472204) 0.06 10*3/uL 0.00-0.06 LYMPH x10^3 (test code = 731-0) 2.94 10*3/uL 1.32-3.29 MONO x10^3 (test code = 742-7) 0.77 10*3/uL 0.33-0.92 EOS x10^3 (test code = 711-2) 0.14 10*3/uL 0.03-0.39 BASO x10^3 (test code = 704-7) 0.06 10*3/uL 0.01-0.07 Lab Interpretation (test code = 87635-8) Abnormal [facility] [id number] 22:59:00* Test Item Value Reference Range Interpretation Comme nts POCT PREG (test code = 1605) Negative On board controls acceptable with C Line (test code = 3574) Yes POCT PREG LOT # (test code = 3575) [id number] POCT PREG TEST DATE ( test code = 3576) 07/10/2024 Lab Interpretation (test cod e = 12674-9) [facility] [id number] 02:36:34* Test Item Value Reference Range Interpretation Comme nts TROPONIN I (test code = 5108650329) 0.000 ng/mL <=0.034 DARWIN (test code = [...] of biotin. Lab Interpretation (test code = 80523-9) [facility] [id number]-[id number] 02:34:17* Test Item Value Reference Range Interpretation Comme [facility] NT-proBNP (test code = 28271-0) 40 pg/mL <=125 Lab Interpretation (test cod e = 10140-4) [facility] THRMPLAS [id number] 02:33:37* Test Item Value Reference Range Interpretation Comme [facility] APTT Patient (test code = 3173-2) 25 See_Comment [Automated message] The system which generated this result transmitted reference range: 23 - 38 Seconds. The reference range was not used to interpret this result as normal/abnormal. DARWIN (test code = DARWIN) The RUST patient population mean normal value for aPTT is 30 seconds. Lab Interpretation (test code = 08992-7) Normal [facility] HospitalPROT[facility]OM[facility] / [id number] 02:31:36* Test Item Value Reference Range Interpretation Comme [facility] PROTIME PATIENT (test code = 5964-2) 12.6 See_Comment [Automated [employer] ge] The system which generated this result transmitted reference range: 12.0 - 14.7 Seconds. The reference range was not used to interpret this result as normal/abnormal. INR (test code = 6301-6) 1.0 Normal INR <1.1; Warfarin Therapeutic range 2.0 to 3.0 or 2.5 to 3.5, depending upon the indications. Lab Interpretation (test code = 79394-4) Normal [facility]. METABOLIC PANEL (63857)2023-04-17 02:24:56* Test Item Value Reference Range Interpretation Comme nts NA (test code = 5151577169) 142 mmol/L 135-145 K (test code = 4501133844) 3.1 mmol/L 3.5-5.0 L CL (test code = 0717004297) 108 mmol/L 98-108 CO2 TOTAL (test code = 5314146185) 20 mmol/L 23-31 L AGAP (test code = 1625100314) 14 2-16 BUN (test code = 5241316208) 4 mg/dL 7-23 L GLUCOSE (test code = 4554980357) 107 mg/dL 70-110 CREATININE (test code = 2550710671) 0.61 mg/dL 0.50-1.04 TOTAL BILI (test code = 9937896343) 0.2 mg/dL 0.1-1.1 CALCIUM (test code = 8642598824) 9.1 mg/dL 8.6-10.6 T PROTEIN (test code = 9474656387) 7.0 g/dL 6.3-8.2 ALBUMIN (test code = 8706322444) 3.9 g/dL 3.5-5.0 ALK PHOS (test code = 1880283093) 69 U/L 34-122 ALTv (test code = 1742-6) 21 U/L 5-35 AST(SGOT) (test code = 1778193918) 21 U/L 13-40 eGFR (test code = 4335118624) 106.5 mL/min/1.73m2 DARWIN (test code = DARWIN) [...] imaging tests). Lab Interpretation (test code = 99688-7) [facility] 02:24:56* Test Item Value Reference Range Interpretation Comme nts LIPASE (test code = 2051219311) 104 U/L 0-220 Lab Interpretation (test cod e = 21671-3) Normal [facility] WITH [id number] 02:13:31* Test Item Value Reference Range Interpretation Comme nts WBC (test code = 6690-2) 10.74 See_Comment [Automated [employer]] The system which generated this result transmitted reference range: 4.30 - 11.10 10*3/?L. The reference range was not used to interpret this result as normal/abnormal. RBC (test code = 789-8) 4.75 See_Comment [Automated [employer]] The system which generated this result transmitted [...] 34.5 g/dL 31.6-35.1 RDW-SD (test code = 18930-4) 39.1 fL 39.0-49.9 RDW-CV (test code = 788-0) 13.5 % 12.0-15.5 PLT (test code = 777-3) 324 See_Comment [Automated messa ge] The system which generated this result transmitted reference range: 166 - 358 10*3/?L. The reference range was not used to interpret this result as normal/abnormal. MPV (test code = 31305-4) 9.3 fL 9.5-12.9 L NRBC/100 WBC (test code = 7078479025) 0.0 See_Comment [Automated [employer] ssage] The system which generated this result transmitted reference range: 0.0 - 10.0 /100 WBCs. The reference range was not used to interpret this result as normal/abnormal. NRBC x10^3 (test code = 2496779549) See_Comment [Automated messa ge] The system which generated this result transmitted reference range: 10*3/?L. The reference range was not used to interpret this result as normal/abnormal. GRAN MAT (NEUT) % (test code = 770-8) 65.2 % IMM GRAN % (test code = 5744060085) 0.40 % LYMPH % (test code = 736-9) 26.5 % MONO % (test code = 5905-5) 5.8 % EOS % (test code = 713-8) 1.7 % BASO % (test code = 706-2) 0.4 % GRAN MAT x10^3(ANC) (test code = 9219884238) 7.01 10*3/uL 1.88-7.09 IMM GRAN x10^3 (test code = 5588751152) 0.04 10*3/uL 0.00-0.06 LYMPH x10^3 (test code = 731-0) 2.85 10*3/uL 1.32-3.29 MONO x10^3 (test code = 742-7) 0.62 10*3/uL 0.33-0.92 EOS x10^3 (test code = 711-2) 0.18 10*3/uL 0.03-0.39 BASO x10^3 (test code = 704-7) 0.04 10*3/uL 0.01-0.07 Lab Interpretation (test code = 00124-0) [id number]* Test Item Value Reference Range Interpretation Comme nts POCT PREG (test code = 1605) Negative On board controls acceptable with C Line (test code = 3574) Yes POCT PREG LOT # (test code = 3575) [id number] POCT PREG TEST DATE ( test code = 3576) 2024-09-04 Lab Interpretation (test cod e = 34759-7) [id number] 23:59:14* Test Item Value Reference Range Interpretation Comme nts TROPONIN I (test code = 3079093739) 0.000 ng/mL <=0.034 DARWIN (test code = [...] of biotin. Lab Interpretation (test code = 87180-9) Normal [facility]. METABOLIC PANEL (98820)2023-04-08 23:47:52* Test Item Value Reference Range Interpretation Comme nts NA (test code = 7261581157) 138 mmol/L 135-145 K (test code = 3729772862) 3.4 mmol/L 3.5-5.0 L CL (test code = 0767175713) 103 mmol/L 98-108 CO2 TOTAL (test code = 1643955377) 22 mmol/L 23-31 L AGAP (test code = 4464157607) 13 2-16 BUN (test code = 6135277842) 6 mg/dL 7-23 L GLUCOSE (test code = 8367158418) 106 mg/dL 70-110 CREATININE (test code = 5989742552) 0.91 mg/dL 0.50-1.04 TOTAL BILI (test code = 8707859829) 0.2 mg/dL 0.1-1.1 CALCIUM (test code = 0754889984) 8.7 mg/dL 8.6-10.6 T PROTEIN (test code = 6671367857) 7.4 g/dL 6.3-8.2 ALBUMIN (test code = 6204677568) 4.1 g/dL 3.5-5.0 ALK PHOS (test code = 6032718559) 71 U/L 34-122 ALTv (test code = 1742-6) 28 U/L 5-35 AST(SGOT) (test code = 9023705752) 28 U/L 13-40 eGFR (test code = 8497710567) 67.2 mL/min/1.73m2 DARWIN (test code = DARWIN) [...] imaging tests). Lab Interpretation (test code = 87948-1) [facility] 23:47:52* Test Item Value Reference Range Interpretation Comme nts MAGNESIUM (test code = 6411963325) 2.0 mg/dL 1.7-2.4 Lab Interpretation (test cod e = 25449-8) [facility] 23:47:52* Test Item Value Reference Range Interpretation Comme nts LIPASE (test code = 5397128701) 74 U/L 0-220 Lab Interpretation (test cod e = 52987-9) [facility] [id number] 23:36:30* Test Item Value Reference Range Interpretation [...] 34.5 g/dL 31.6-35.1 RDW-SD (test code = 32920-0) 39.3 fL 39.0-49.9 RDW-CV (test code = 788-0) 13.6 % 12.0-15.5 PLT (test code = 777-3) 305 See_Comment [Automated messa ge] The system which generated this result transmitted reference range: 166 - 358 10*3/?L. The reference range was not used to interpret this result as normal/abnormal. MPV (test code = 72035-1) 9.6 fL 9.5-12.9 NRBC/100 WBC (test code = 8397162200) 0.0 See_Comment [Automated [employer] ssage] The system which generated this result transmitted reference range: 0.0 - 10.0 /100 WBCs. The reference range was not used to interpret this result as normal/abnormal. NRBC x10^3 (test code = 7246795227) See_Comment [Automated messa ge] The system which generated this result transmitted reference range: 10*3/?L. The reference range was not used to interpret this result as normal/abnormal. GRAN MAT (NEUT) % (test code = 770-8) 66.5 % IMM GRAN % (test code = 6799983907) 0.30 % LYMPH % (test code = 736-9) 25.3 % MONO % (test code = 5905-5) 5.2 % EOS % (test code = 713-8) 2.3 % BASO % (test code = 706-2) 0.4 % GRAN MAT x10^3(ANC) (test code = 1745931855) 6.61 10*3/uL 1.88-7.09 IMM GRAN x10^3 (test code = 1065312882) 0.03 10*3/uL 0.00-0.06 LYMPH x10^3 (test code = 731-0) 2.52 10*3/uL 1.32-3.29 MONO x10^3 (test code = 742-7) 0.52 10*3/uL 0.33-0.92 EOS x10^3 (test code = 711-2) 0.23 10*3/uL 0.03-0.39 BASO x10^3 (test code = 704-7) 0.04 10*3/uL 0.01-0.07 Lab Interpretation (test code = 40906-9) Abnormal [facility] [id number] 02:51:00* Test Item Value Reference Range Interpretation Comme nts POCT PREG (test code = 1605) Negative On board controls acceptable with C Line (test code = 3574) Yes POCT PREG LOT # (test code = 3575) [id number] POCT PREG TEST DATE ( test code = 3576) 07/10/2024 Lab Interpretation (test cod e = 13357-5) Normal [facility] [id number] 03:26:00* Test Item Value Reference Range Interpretation Comme nts POCT PREG (test code = 1605) Negative On board controls acceptable with C Line (test code = 3574) Yes POCT PREG LOT # (test code = 3575) [id number] POCT PREG TEST DATE ( test code = 3576) Lab Interpretation (test cod e = 41826-3) [facility] 22:35:38* Test Item Value Reference Range Interpretation Comme nts LIPASE (test code = 7631895359) 2049 U/L 0-220 H Lab Interpretation (test cod e = 39078-1) Abnormal [facility] WITH [id number] 22:30:10* Test Item Value Reference Range Interpretation [...] 34.6 g/dL 31.6-35.1 RDW-SD (test code = 58059-7) 42.7 fL 39.0-49.9 RDW-CV (test code = 788-0) 14.6 % 12.0-15.5 PLT (test code = 777-3) 331 See_Comment [Automated messa ge] The system which generated this result transmitted reference range: 166 - 358 10*3/?L. The reference range was not used to interpret this result as normal/abnormal. MPV (test code = 61962-1) 9.7 fL 9.5-12.9 NRBC/100 WBC (test code = 3513578228) 0.0 See_Comment [Automated [employer] ssage] The system which generated this result transmitted reference range: 0.0 - 10.0 /100 WBCs. The reference range was not used to interpret this result as normal/abnormal. NRBC x10^3 (test code = 7030501413) See_Comment [Automated messa ge] The system which generated this result transmitted reference range: 10*3/?L. The reference range was not used to interpret this result as normal/abnormal. GRAN MAT (NEUT) % (test code = 770-8) 65.7 % IMM GRAN % (test code = 8669526978) 0.50 % LYMPH % (test code = 736-9) 26.5 % MONO % (test code = 5905-5) 5.4 % EOS % (test code = 713-8) 1.5 % BASO % (test code = 706-2) 0.4 % GRAN MAT x10^3(ANC) (test code = 7822389169) 8.05 10*3/uL 1.88-7.09 H IMM GRAN x10^3 (test code = 4611713378) 0.06 10*3/uL 0.00-0.06 LYMPH x10^3 (test code = 731-0) 3.24 10*3/uL 1.32-3.29 MONO x10^3 (test code = 742-7) 0.66 10*3/uL 0.33-0.92 EOS x10^3 (test code = 711-2) 0.18 10*3/uL 0.03-0.39 BASO x10^3 (test code = 704-7) 0.05 10*3/uL 0.01-0.07 Lab Interpretation (test code = 99976-2) [facility] (55143)2023-02-15 22:27:47* Test Item Value Reference Range Interpretation Comme nts NA (test code = 8438011442) 138 mmol/L 135-145 K (test code = 9719603916) 3.7 mmol/L 3.5-5.0 CL (test code = 9643722977) 105 mmol/L 98-108 CO2 TOTAL (test code = 2562490056) 23 mmol/L 23-31 AGAP (test code = 0452114206) 10 2-16 BUN (test code = 7535259234) 6 mg/dL 7-23 L GLUCOSE (test code = 1530050135) 92 mg/dL 70-110 CREATININE (test code = 9504380386) 0.77 mg/dL 0.50-1.04 TOTAL BILI (test code = 7302311947) 0.7 mg/dL 0.1-1.1 CALCIUM (test code = 6315968267) 9.0 mg/dL 8.6-10.6 T PROTEIN (test code = 7155508575) 7.5 g/dL 6.3-8.2 ALBUMIN (test code = 1815140874) 4.0 g/dL 3.5-5.0 ALK PHOS (test code = 5793088478) 101 U/L 34-122 ALTv (test code = 1742-6) 25 U/L 5-35 AST(SGOT) (test code = 9171639584) 36 U/L 13-40 eGFR (test code = 8763642242) 81.8 mL/min/1.73m2 DARWIN (test code = DARWIN) [...] imaging tests). Lab Interpretation (test code = 11395-1) [facility]QKBOZ8098-23-39 20:56:28* Test Item Value Reference Range Interpretation Comments D-DIMER (test code = 9863235567) 0.44 See_Comment H [Automated message] The system [...] a diagnosis. Lab Interpretation (test code = 34605-0) [facility] [id number] 01:15:16* Test Item Value Reference Range Interpretation Comments TROPONIN I (test code = 4854251344) 0.001 ng/mL See_Comment [Automated message] The system [...] of biotin. Lab Interpretation (test code = 39320-0) Normal [facility] [id number] 22:52:31* Test Item Value Reference Range Interpretation Comments TROPONIN I (test code = 2802879645) 0.001 ng/mL See_Comment [Automated message] The system [...] of biotin. Lab Interpretation (test code = 96712-6) [facility] [id number]-NTC2524-10-05 22:49:33* Test Item Value Reference Range Interpretation Comme nts NT-proBNP (test code = 2417913157) 145 pg/mL See_Comment H [Automated message] The system which generated this result transmitted reference range: <=125. The reference range was not used to interpret this result as normal/abnormal. DARWIN (test code = DARWIN) Biotin has been reported to cause a negative bias, interpret results relative to patient's use of biotin. Lab Interpretation (test code = 46759-3) Abnormal [facility] METABOLIC PANEL (NA, K, CL, CO2, GLUCOSE, BUN, CREATININE, CA)2022-01-09 22:40:32* Test Item Value Reference Range Interpretation Comme nts NA (test code = 1257681795) 142 mmol/L 135-145 K (test code = 6521713112) 3.3 mmol/L 3.5-5.0 L CL (test code = 6938612542) 109 mmol/L 98-108 H CO2 TOTAL (test code = 9374076818) 22 mmol/L 23-31 L AGAP (test code = 9581523232) 2-16 BUN (test code = 5281716455) 9 mg/dL 7-23 GLUCOSE (test code = 2981069383) 116 mg/dL 70-110 H CREATININE (test code = 3106956922) 0.69 mg/dL 0.50-1.04 CALCIUM (test code = 8208237669) 9.2 mg/dL 8.6-10.6 eGFR (test code = 4944556092) mL/min/1.73m2 DARWIN (test code = DARWIN) Association [...] imaging tests). Lab Interpretation (test code = 55960-6) Abnormal [facility] WITH [id number] 22:29:09* Test Item Value Reference Range Interpretation Comme nts WBC (test code = 6690-2) See_Comment [Automated [employer]] The system which generated this result transmitted reference range: 4.30 - 11.10 10*3/?L. The reference range was not used to interpret this result as normal/abnormal. RBC (test code = 789-8) See_Comment [Automated [employer]] The system which generated this result transmitted [...] 34.4 g/dL 31.6-35.1 RDW-SD (test code = 96423-9) 40.7 fL 39.0-49.9 RDW-CV (test code = 788-0) 14.1 % 12.0-15.5 PLT (test code = 777-3) See_Comment [Automated [employer]] The system which generated this result transmitted reference range: 166 - 358 10*3/?L. The reference range was not used to interpret this result as normal/abnormal. MPV (test code = 22275-2) 9.6 fL 9.5-12.9 NRBC/100 WBC (test code = 7838003983) See_Comment [Automated me ssage] The system which generated this result transmitted reference range: 0.0 - 10.0 /100 WBCs. The reference range was not used to interpret this result as normal/abnormal. NRBC x10^3 (test code = 8497427226) <0.01 See_Comment [Automated messa ge] The system which generated this result transmitted reference range: 10*3/?L. The reference range was not used to interpret this result as normal/abnormal. GRAN MAT (NEUT) % (test code = 770-8) 54.7 % IMM GRAN % (test code = 6195003610) 0.40 % LYMPH % (test code = 736-9) 33.8 % MONO % (test code = 5905-5) 7.1 % EOS % (test code = 713-8) 3.3 % BASO % (test code = 706-2) 0.7 % GRAN MAT x10^3(ANC) (test code = 1754287051) 4.87 10*3/uL 1.88-7.09 IMM GRAN x10^3 (test code = 8044253328) 0.04 10*3/uL 0.00-0.06 LYMPH x10^3 (test code = 731-0) 3.01 10*3/uL 1.32-3.29 MONO x10^3 (test code = 742-7) 0.63 10*3/uL 0.33-0.92 EOS x10^3 (test code = 711-2) 0.29 10*3/uL 0.03-0.39 BASO x10^3 (test code = 704-7) 0.06 10*3/uL 0.01-0.07 Lab Interpretation (test code = 17577-1) [facility] [id number] 06:45:45* Test Item Value Reference Range Interpretation Comments TROPONIN I (test code = 8016491391) 0.000 ng/mL See_Comment [Automated message] The system [...] of biotin. Lab Interpretation (test code = 05878-7) [facility] HospitalTHYROID STIMULATING [id number] 05:00:55 * Test Item Value Reference Range Interpretation Comme nts TSH (test code = 4950031127) See_Comment [Automated [employer]] The system which generated this result transmitted reference range: 0.45 - 4.70 mIU/L. The reference range was not used to interpret this result as normal/abnormal. Lab Interpretation (test code = 04823-8) Normal [facility] [id number] 04:47:50* Test Item Value Reference Range Interpretation Comme nts FREE T4 (test code = 6567088196) See_Comment [Automated [employer] ge] The system which generated this result transmitted reference range: 0.78 - 2.20 ng/dL:. The reference range was not used to interpret this result as normal/abnormal. Lab Interpretation (test code = 28027-7) Normal [facility] [id number] 04:47:10* Test Item Value Reference Range Interpretation Comme nts FREE T3 (test code = 0016244509) 4.37 pg/mL 2.77-5.27 Lab Interpretation (test cod e = 55996-9) [id number] 04:42:07* Test Item Value Reference Range Interpretation Comments TROPONIN I (test code = 4956541146) 0.001 ng/mL See_Comment [Automated message] The system [...] of biotin. Lab Interpretation (test code = 80731-2) Normal [facility]. METABOLIC PANEL (88287)2021-12-14 04:30:28* Test Item Value Reference Range Interpretation Comme nts NA (test code = 5621567462) 141 mmol/L 135-145 K (test code = 3577099224) 3.6 mmol/L 3.5-5.0 CL (test code = 0099520349) 111 mmol/L 98-108 H CO2 TOTAL (test code = 9787591319) 19 mmol/L 23-31 L AGAP (test code = 2642152528) 2-16 BUN (test code = 5151978296) 15 mg/dL 7-23 GLUCOSE (test code = 1520934571) 113 mg/dL 70-110 H CREATININE (test code = 8552454851) 1.05 mg/dL 0.50-1.04 H TOTAL BILI (test code = 0193436975) 0.2 mg/dL 0.1-1.1 CALCIUM (test code = 1697136685) 9.8 mg/dL 8.6-10.6 T PROTEIN (test code = 2493946952) 6.8 g/dL 6.3-8.2 ALBUMIN (test code = 4626318417) 4.2 g/dL 3.5-5.0 ALK PHOS (test code = 3338299282) 73 U/L 34-122 ALTv (test code = 1742-6) 16 U/L 5-35 AST(SGOT) (test code = 5496756476) 19 U/L 13-40 eGFR (test code = 4378446650) mL/min/1.73m2 DARWIN (test code = DARWIN) Association [...] imaging tests). Lab Interpretation (test code = 50853-4) [facility] 04:29:48* Test Item Value Reference Range Interpretation Comme [facility] LIPASE (test code = 1077642180) 225 U/L 0-220 H Lab Interpretation (test cod e = 89910-2) [facility]PO[facility] [id number] 04:20:00* Test Item Value Reference Range Interpretation Comme [facility] POCT PREG (test code = 1605) negative On board controls acceptable with C Line (test code = 3574) present POCT PREG LOT # (test code = 3575) [id number] POCT PREG TEST DATE ( test code = 3576) 2023-05-07 Lab Interpretation (test cod e = 35725-6) Normal [facility] WITH [id number] 04:01:25* Test Item Value Reference Range Interpretation [...] 34.3 g/dL 31.6-35.1 RDW-SD (test code = 29958-8) 39.5 fL 39.0-49.9 RDW-CV (test code = 788-0) 13.6 % 12.0-15.5 PLT (test code = 777-3) See_Comment [Automated messa ge] The system which generated this result transmitted reference range: 166 - 358 10*3/?L. The reference range was not used to interpret this result as normal/abnormal. MPV (test code = 14769-9) 9.9 fL 9.5-12.9 NRBC/100 WBC (test code = 1635381451) See_Comment [Automated [employer] ssage] The system which generated this result transmitted reference range: 0.0 - 10.0 /100 WBCs. The reference range was not used to interpret this result as normal/abnormal. NRBC x10^3 (test code = 1982121310) <0.01 See_Comment [Automated messa ge] The system which generated this result transmitted reference range: 10*3/?L. The reference range was not used to interpret this result as normal/abnormal. GRAN MAT (NEUT) % (test code = 770-8) 51.5 % IMM GRAN % (test code = 4430287954) 0.50 % LYMPH % (test code = 736-9) 35.8 % MONO % (test code = 5905-5) 9.4 % EOS % (test code = 713-8) 2.2 % BASO % (test code = 706-2) 0.6 % GRAN MAT x10^3(ANC) (test code = 3393901341) 5.37 10*3/uL 1.88-7.09 IMM GRAN x10^3 (test code = 1249385663) 0.05 10*3/uL 0.00-0.06 LYMPH x10^3 (test code = 731-0) 3.73 10*3/uL 1.32-3.29 H MONO x10^3 (test code = 742-7) 0.98 10*3/uL 0.33-0.92 H EOS x10^3 (test code = 711-2) 0.23 10*3/uL 0.03-0.39 BASO x10^3 (test code = 704-7) 0.06 10*3/uL 0.01-0.07 Lab Interpretation (test code = 76107-9) Abnormal [facility] [id number] 04:04:13* Test Item Value Reference Range Interpretation Comments TROPONIN I (test code = 1429548581) 0.001 ng/mL See_Comment [Automated message] The system [...] of biotin. Lab Interpretation (test code = 64138-2) [facility] [id number] 02:56:00* Test Item Value Reference Range Interpretation Comme nts POCT PREG (test code = 1605) negative On board controls acceptable with C Line (test code = 3574) present POCT PREG LOT # (test code = 3575) [id number] POCT PREG TEST DATE ( test code = 3576) 2023-04-06 Lab Interpretation (test cod e = 21705-1) [facility] [id number] 02:15:30* Test Item Value Reference Range Interpretation Comments TROPONIN I (test code = 0718036891) 0.000 ng/mL See_Comment [Automated message] The system [...] of biotin. Lab Interpretation (test code = 32438-3) [facility]AL [id number]-[id number] 02:12:14* Test Item Value Reference Range Interpretation Comme nts NT-proBNP (test code = 9802950734) 109 pg/mL See_Comment [Automated message] The system which generated this result transmitted reference range: <=125. The reference range was not used to interpret this result as normal/abnormal. DARWIN (test code = DARWIN) Biotin has been reported to cause a negative bias, interpret results relative to patient's use of biotin. Lab Interpretation (test code = 79106-1) [facility]OL[facility] (19291)2021-11-12 02:04:12* Test Item Value Reference Range Interpretation Comme nts NA (test code = 1872575552) 140 mmol/L 135-145 K (test code = 7240880139) 4.0 mmol/L 3.5-5.0 CL (test code = 8378588593) 111 mmol/L 98-108 H CO2 TOTAL (test code = 2971977669) 17 mmol/L 23-31 L AGAP (test code = 3942133204) 2-16 BUN (test code = 7317541193) 9 mg/dL 7-23 GLUCOSE (test code = 3636142716) 105 mg/dL 70-110 CREATININE (test code = 8030914287) 0.72 mg/dL 0.50-1.04 TOTAL BILI (test code = 7751143819) 0.4 mg/dL 0.1-1.1 CALCIUM (test code = 1741464578) 9.3 mg/dL 8.6-10.6 T PROTEIN (test code = 8000758005) 6.6 g/dL 6.3-8.2 ALBUMIN (test code = 7429064360) 4.0 g/dL 3.5-5.0 ALK PHOS (test code = 8331017698) 70 U/L 34-122 ALTv (test code = 1742-6) 19 U/L 5-35 AST(SGOT) (test code = 0651687169) 21 U/L 13-40 eGFR (test code = 6626006256) mL/min/1.73m2 DARWIN (test code = DARWIN) Association [...] imaging tests). Lab Interpretation (test code = 34166-6) [facility] 02:03:32* Test Item Value Reference Range Interpretation Comme nts LIPASE (test code = 2974463175) 173 U/L 0-220 Lab Interpretation (test cod e = 73174-0) Normal [facility] WITH [id number] 01:43:53* Test Item Value Reference Range Interpretation Comme nts WBC (test code = 6690-2) See_Comment [Automated [employer]] The system which generated this result transmitted reference range: 4.30 - 11.10 10*3/?L. The reference range was not used to interpret this result as normal/abnormal. RBC (test code = 789-8) See_Comment [Automated [employer]] The system which generated this result transmitted [...] 33.7 g/dL 31.6-35.1 RDW-SD (test code = 70011-4) 41.3 fL 39.0-49.9 RDW-CV (test code = 788-0) 14.3 % 12.0-15.5 PLT (test code = 777-3) See_Comment [Automated [employer] ge] The system which generated this result transmitted reference range: 166 - 358 10*3/?L. The reference range was not used to interpret this result as normal/abnormal. MPV (test code = 00854-0) 9.7 fL 9.5-12.9 NRBC/100 WBC (test code = 5567194786) See_Comment [Automated [employer] ssage] The system which generated this result transmitted reference range: 0.0 - 10.0 /100 WBCs. The reference range was not used to interpret this result as normal/abnormal. NRBC x10^3 (test code = 1900137517) <0.01 See_Comment [Automated [employer] ge] The system which generated this result transmitted reference range: 10*3/?L. The reference range was not used to interpret this result as normal/abnormal. GRAN MAT (NEUT) % (test code = 770-8) 62.6 % IMM GRAN % (test code = 5273287147) 0.50 % LYMPH % (test code = 736-9) 27.0 % MONO % (test code = 5905-5) 6.5 % EOS % (test code = 713-8) 2.9 % BASO % (test code = 706-2) 0.5 % GRAN MAT x10^3(ANC) (test code = 5670927224) 6.30 10*3/uL 1.88-7.09 IMM GRAN x10^3 (test code = 7021079991) 0.05 10*3/uL 0.00-0.06 LYMPH x10^3 (test code = 731-0) 2.71 10*3/uL 1.32-3.29 MONO x10^3 (test code = 742-7) 0.65 10*3/uL 0.33-0.92 EOS x10^3 (test code = 711-2) 0.29 10*3/uL 0.03-0.39 BASO x10^3 (test code = 704-7) 0.05 10*3/uL 0.01-0.07 Lab Interpretation (test code = 60984-3) [facility] [id number] 02:21:00* Test Item Value Reference Range Interpretation Comme nts POCT PREG (test code = 1605) Negative On board controls acceptable with C Line (test code = 3574) Present Lab Interpretation (test cod e = 00957-4) [facility] Hospital[facility] Metabolic Cvtdh6617-53-20 02:05:50* Test Item Value Reference Range Interpretation Comme nts NA (test code = 1601482771) 137 mmol/L 135-145 K (test code = 7115649552) 3.9 mmol/L 3.5-5.0 CL (test code = 5161851664) 109 mmol/L 98-108 H CO2 TOTAL (test code = 8977010853) 19 mmol/L 23-31 L AGAP (test code = 9877093892) 2-16 BUN (test code = 0054430020) 10 mg/dL 7-23 GLUCOSE (test code = 5333448459) 101 mg/dL 70-110 CREATININE (test code = 4014725301) 0.80 mg/dL 0.50-1.04 TOTAL BILI (test code = 3218596293) 0.3 mg/dL 0.1-1.1 CALCIUM (test code = 4504042595) 8.8 mg/dL 8.6-10.6 T PROTEIN (test code = 7804335353) 6.6 g/dL 6.3-8.2 ALBUMIN (test code = 1621263325) 4.0 g/dL 3.5-5.0 ALK PHOS (test code = 7340391928) 71 U/L 34-122 ALTv (test code = 1742-6) 18 U/L 5-35 AST(SGOT) (test code = 3768858377) 20 U/L 13-40 eGFR (test code = 3814526106) mL/min/1.73m2 DARWIN (test code = DARWIN) Association [...] imaging tests). Lab Interpretation (test code = 71048-0) [facility] HospitalLip[facility], Lwunc3351-62-60 02:05:25* Test Item Value Reference Range Interpretation Comme nts LIPASE (test code = 0316787488) 96 U/L 0-220 Lab Interpretation (test cod e = 24164-9) [facility] with Jyrhsbjueved5703-88-33 01:53:06* Test Item Value Reference Range Interpretation Comme nts WBC (test code = 6690-2) See_Comment H [Automated [employer]] The system which generated this result transmitted reference range: 4.30 - 11.10 10*3/?L. The reference range was not used to interpret this result as normal/abnormal. RBC (test code = 789-8) See_Comment H [Automated [employer]] The system which generated this result transmitted [...] 34.3 g/dL 31.6-35.1 RDW-SD (test code = 52537-2) 40.5 fL 39.0-49.9 RDW-CV (test code = 788-0) 14.4 % 12.0-15.5 PLT (test code = 777-3) See_Comment [Automated messa ge] The system which generated this result transmitted reference range: 166 - 358 10*3/?L. The reference range was not used to interpret this result as normal/abnormal. MPV (test code = 51802-7) 9.4 fL 9.5-12.9 L NRBC/100 WBC (test code = 9259836968) See_Comment [Automated [employer]] The system which generated this result transmitted reference range: 0.0 - 10.0 /100 WBCs. The reference range was not used to interpret this result as normal/abnormal. NRBC x10^3 (test code = 3858950988) <0.01 See_Comment [Automated [employer]] The system which generated this result transmitted reference range: 10*3/?L. The reference range was not used to interpret this result as normal/abnormal. GRAN MAT (NEUT) % (test code = 770-8) 59.8 % IMM GRAN % (test code = 1011410397) 0.40 % LYMPH % (test code = 736-9) 31.0 % MONO % (test code = 5905-5) 6.3 % EOS % (test code = 713-8) 2.0 % BASO % (test code = 706-2) 0.5 % GRAN MAT x10^3(ANC) (test code = 7088056765) 6.73 10*3/uL 1.88-7.09 IMM GRAN x10^3 (test code = 3928856358) 0.05 10*3/uL 0.00-0.06 LYMPH x10^3 (test code = 731-0) 3.50 10*3/uL 1.32-3.29 H MONO x10^3 (test code = 742-7) 0.71 10*3/uL 0.33-0.92 EOS x10^3 (test code = 711-2) 0.23 10*3/uL 0.03-0.39 BASO x10^3 (test code = 704-7) 0.06 10*3/uL 0.01-0.07 Lab Interpretation (test code = 06774-6) Abnormal [facility] Mnri6115-60-84 01:45:00* Test Item Value Reference Range Interpretation Comme nts POCT PREG (test code = 1605) negatibe On board controls acceptable with C Line (test code = 3574) present POCT PREG LOT # (test code = 3575) [id number] POCT PREG TEST DATE ( test code = 3576) 09/04/2022 Lab Interpretation (test cod e = 85487-9) Normal [facility] [id number] 06:35:00* Test Item Value Reference Range Interpretation Comme nts POCT PREG (test code = 1605) negative On board controls acceptable with C Line (test code = 3574) present POCT PREG LOT # (test code = 3575) [id number] POCT PREG TEST DATE ( test code = 3576) Lab Interpretation (test cod e = 27928-5) [id number]:09:[facility]* Test Item Value Reference Range Interpretation Comments TROPONIN I (test code = 9206973688) 0.001 ng/mL See_Comment [Automated message] The system [...] of biotin. Lab Interpretation (test code = 16453-9) [id number]:23:[facility]* Test Item Value Reference Range Interpretation Comments D-DIMER (test code = [id number]) See_Comment [Automated message] The system which generated [...] a diagnosis. Lab Interpretation (test code = 59113-8) [facility]:11:26* Test Item Value Reference Range Interpretation Comme nts LIPASE (test code = 2323646992) 155 U/L 0-220 Lab Interpretation (test cod e = 73487-1) [facility] [id number] 06:06:05* Test Item Value Reference Range Interpretation Comments TROPONIN I (test code = 0833080058) 0.002 ng/mL See_Comment [Automated message] The system [...] of biotin. Lab Interpretation (test code = 93525-9) [id number]-[id number] 06:03:04* Test Item Value Reference Range Interpretation Comme nts NT-proBNP (test code = 9591588434) 19 pg/mL See_Comment [Automated message] The system which generated this result transmitted reference range: <=125. The reference range was not used to interpret this result as normal/abnormal. DARWIN (test code = DARWIN) Biotin has been reported to cause a negative bias, interpret results relative to patient's use of biotin. Lab Interpretation (test code = 83000-6) [facility] MET[facility]OLIC PANEL (43881)2021-05-28 05:54:25* Test Item Value Reference Range Interpretation Comme nts NA (test code = 6359238817) 136 mmol/L 135-145 K (test code = 1833617701) 3.2 mmol/L 3.5-5.0 L CL (test code = 5553404160) 109 mmol/L 98-108 H CO2 TOTAL (test code = 9570481336) 16 mmol/L 23-31 L AGAP (test code = 3308624681) 2-16 BUN (test code = 6808423371) 11 mg/dL 7-23 GLUCOSE (test code = 7718707187) 144 mg/dL 70-110 H CREATININE (test code = 0741148727) 0.84 mg/dL 0.50-1.04 TOTAL BILI (test code = 5984814504) 0.2 mg/dL 0.1-1.1 CALCIUM (test code = 7372606234) 9.4 mg/dL 8.6-10.6 T PROTEIN (test code = 4635260459) 6.9 g/dL 6.3-8.2 ALBUMIN (test code = 4665523419) 3.9 g/dL 3.5-5.0 ALK PHOS (test code = 4533008058) 106 U/L 34-122 ALTv (test code = 1742-6) 20 U/L 5-35 AST(SGOT) (test code = 9095296050) 17 U/L 13-40 eGFR (test code = 7342201822) mL/min/1.73m2 DARWIN (test code = DARWIN) Association [...] imaging tests). Lab Interpretation (test code = 99784-5) Abnormal [facility] WITH [id number] 05:40:06* Test Item Value Reference Range Interpretation Comme nts WBC (test code = 6690-2) See_Comment [[employer]] The system which generated this result transmitted reference range: 4.30 - 11.10 10*3/?L. The reference range was not used to interpret this result as normal/abnormal. RBC (test code = 789-8) See_Comment [[employer]] The system which generated this result transmitted [...] 33.3 g/dL 31.6-35.1 RDW-SD (test code = 86636-4) 39.7 fL 39.0-49.9 RDW-CV (test code = 788-0) 13.6 % 12.0-15.5 PLT (test code = 777-3) See_Comment [Automated [employer]] The system which generated this result transmitted reference range: 166 - 358 10*3/?L. The reference range was not used to interpret this result as normal/abnormal. MPV (test code = 31769-5) 9.5 fL 9.5-12.9 NRBC/100 WBC (test code = 7191336123) See_Comment [Automated [employer]age] The system which generated this result transmitted reference range: 0.0 - 10.0 /100 WBCs. The reference range was not used to interpret this result as normal/abnormal. NRBC x10^3 (test code = 9220387833) <0.01 See_Comment [Automated [employer]] The system which generated this result transmitted reference range: 10*3/?L. The reference range was not used to interpret this result as normal/abnormal. GRAN MAT (NEUT) % (test code = 770-8) 53.7 % IMM GRAN % (test code = 2720485728) 0.50 % LYMPH % (test code = 736-9) 36.0 % MONO % (test code = 5905-5) 6.3 % EOS % (test code = 713-8) 2.8 % BASO % (test code = 706-2) 0.7 % GRAN MAT x10^3(ANC) (test code = 8448602933) 5.38 10*3/uL 1.88-7.09 IMM GRAN x10^3 (test code = 7739415252) 0.05 10*3/uL 0.00-0.06 LYMPH x10^3 (test code = 731-0) 3.60 10*3/uL 1.32-3.29 H MONO x10^3 (test code = 742-7) 0.63 10*3/uL 0.33-0.92 EOS x10^3 (test code = 711-2) 0.28 10*3/uL 0.03-0.39 BASO x10^3 (test code = 704-7) 0.07 10*3/uL 0.01-0.07 Lab Interpretation (test code = 20091-3) [facility] [id number] 05:32:00* Test Item Value Reference Range Interpretation Comme nts POCT PREG (test code = 1605) negative On board controls acceptable with C Line (test code = 3574) present POCT PREG LOT # (test code = 3575) [id number] POCT PREG TEST DATE ( test code = 3576) 08/07/2022 Lab Interpretation (test cod e = 15959-7) [facility] HospitalTroponin [id number] 11:13:57* Test Item Value Reference Range Interpretation Comments TROPONIN I (test code = 0559084157) 0.002 ng/mL See_Comment [Automated message] The system [...] of biotin. Lab Interpretation (test code = 78804-3) [facility] (NA, K, CL, CO2, GLUCOSE, BUN, CREATININE, CA)2021-04-08 11:04:34* Test Item Value Reference Range Interpretation Comme nts NA (test code = 3990026321) 140 mmol/L 135-145 K (test code = 0777376684) 3.6 mmol/L 3.5-5.0 CL (test code = 6276699613) 111 mmol/L 98-108 H CO2 TOTAL (test code = 7204334164) 22 mmol/L 23-31 L AGAP (test code = 9634550877) 2-16 BUN (test code = 8743712816) 10 mg/dL 7-23 GLUCOSE (test code = 7386045955) 104 mg/dL 70-110 CREATININE (test code = 5318118425) 0.70 mg/dL 0.50-1.04 CALCIUM (test code = 0519258880) 8.7 mg/dL 8.6-10.6 eGFR (test code = 8322354976) mL/min/1.73m2 DARWIN (test code = DARWIN) Association [...] imaging tests). Lab Interpretation (test code = 12801-2) Abnormal [facility] with Hfbmrhlyclmt8406-91-31 10:46:50* Test Item Value Reference Range Interpretation Comme nts WBC (test code = 6690-2) See_Comment [Automated [employer]] The system which generated this result transmitted reference range: 4.30 - 11.10 10*3/?L. The reference range was not used to interpret this result as normal/abnormal. RBC (test code = 789-8) See_Comment [Automated [employer]] The system which generated this result [...] 33.5 g/dL 31.6-35.1 RDW-SD (test code = 86591-5) 42.0 fL 39.0-49.9 RDW-CV (test code = 788-0) 14.1 % 12.0-15.5 PLT (test code = 777-3) See_Comment [Automated [employer]] The system which generated this result transmitted reference range: 166 - 358 10*3/?L. The reference range was not used to interpret this result as normal/abnormal. MPV (test code = 36837-8) 10.0 fL 9.5-12.9 NRBC/100 WBC (test code = 6138050770) See_Comment [Automated [employer]] The system which generated this result transmitted reference range: 0.0 - 10.0 /100 WBCs. The reference range was not used to interpret this result as normal/abnormal. NRBC x10^3 (test code = 5609054593) <0.01 See_Comment [Automated me ssage] The system which generated this result transmitted reference range: 10*3/?L. The reference range was not used to interpret this result as normal/abnormal. GRAN MAT (NEUT) % (test code = 770-8) 59.1 % IMM GRAN % (test code = 6312135446) 0.70 % LYMPH % (test code = 736-9) 28.2 % MONO % (test code = 5905-5) 8.5 % EOS % (test code = 713-8) 3.0 % BASO % (test code = 706-2) 0.5 % GRAN MAT x10^3(ANC) (test code = 8574142801) 3.61 10*3/uL 1.88-7.09 IMM GRAN x10^3 (test code = 7195450794) 0.04 10*3/uL 0.00-0.06 LYMPH x10^3 (test code = 731-0) 1.72 10*3/uL 1.32-3.29 MONO x10^3 (test code = 742-7) 0.52 10*3/uL 0.33-0.92 EOS x10^3 (test code = 711-2) 0.18 10*3/uL 0.03-0.39 BASO x10^3 (test code = 704-7) 0.03 10*3/uL 0.01-0.07 [facility] [id number] 05:54:48* Test Item Value Reference Range Interpretation Comments TROPONIN I (test code = 6668621696) 0.002 ng/mL See_Comment [Automated message] The system [...] of biotin. Lab Interpretation (test code = 43633-5) [facility] HospitalThyroid Stimulating Hormone (TSH)2021-04-08 00:51:16* Test Item Value Reference Range Interpretation Comme nts TSH (test code = 9776301851) See_Comment [[employer]ated [employer]] The system which generated this result transmitted reference range: 0.45 - 4.70 mIU/L. The reference range was not used to interpret this result as normal/abnormal. Lab Interpretation (test code = 98260-5) [facility] HospitalGlycosylated Hemoglobin (A1C)2021-04-08 00:26:53* Test Item Value Reference Range Interpretation Comme nts HGB A1C (test code = 4548-4) 5.5 % 4.0-5.7 DARWIN (test code = DARWIN) Reference RangesNormal: <5.7%Prediabetes: 5.7 - 6.4%Diabetes: > 6.5% Lab Interpretation (test code = 31394-8) [facility] HospitalLipid Panel (Total Cholesterol, Triglycerides, HDL)2021-04-08 00:20:12* Test Item Value Reference Range Interpretation Comme nts CHOL (test code = 2605062589) 223 mg/dL 120-200 H HDL (test code = 2983554075) 35 mg/dL >50 L HDLC RATIO (test code = 8956022925) See_Comment H [Automated [employer]] The system which generated this result transmitted reference range: <=4.5. The reference range was not used to interpret this result as normal/abnormal. TRIG (test code = 2499394300) 223 mg/dL 30-170 H LDL CHOL (test code = 27696-5) 143 mg/dL See_Comment [Automated [employer]] The system which generated this result transmitted reference range: <=160. The reference range was not used to interpret this result as normal/abnormal. VLDL (test code = 8991465273) 45 mg/dL 5-60 Lab Interpretation (test code = 41439-5) Abnormal [facility] HospitalMagnesium [id number] 00:20:07* Test Item Value Reference Range Interpretation Comme nts MAGNESIUM (test code = 4077630911) 1.7 mg/dL 1.7-2.4 Lab Interpretation (test cod e = 88010-6) [facility] HospitalCOMP[facility] METABOLIC PANEL (10048)2021-04-07 23:04:13* Test Item Value Reference Range Interpretation Comme nts NA (test code = 1700632259) 139 mmol/L 135-145 K (test code = 8904346430) 3.4 mmol/L 3.5-5.0 L CL (test code = 8626019132) 109 mmol/L 98-108 H CO2 TOTAL (test code = 2243821698) 22 mmol/L 23-31 L AGAP (test code = 4140125944) 2-16 BUN (test code = 5034555849) 10 mg/dL 7-23 GLUCOSE (test code = 5965333848) 97 mg/dL 70-110 CREATININE (test code = 1026545392) 0.84 mg/dL 0.50-1.04 TOTAL BILI (test code = 5986072098) 0.3 mg/dL 0.1-1.1 CALCIUM (test code = 5735691005) 9.2 mg/dL 8.6-10.6 T PROTEIN (test code = 8812534367) 6.6 g/dL 6.3-8.2 ALBUMIN (test code = 6563287713) 3.8 g/dL 3.5-5.0 ALK PHOS (test code = 3786666852) 69 U/L 34-122 ALTv (test code = 1742-6) 18 U/L 5-35 AST(SGOT) (test code = 8687265371) 19 U/L 13-40 eGFR (test code = 8614047409) mL/min/1.73m2 DARWIN (test code = DARWIN) Association [...] imaging tests). Lab Interpretation (test code = 12420-8) Abnormal [facility] HospitalTROPONIN [id number] 22:33:04* Test Item Value Reference Range Interpretation Comments TROPONIN I (test code = 5162126618) 0.001 ng/mL See_Comment [Automated message] The system [...] of biotin. Lab Interpretation (test code = 14989-3) [facility] HospitalN-TERMINAL [id number] 22:30:05* Test Item Value Reference Range Interpretation Comme nts NT-proBNP (test code = 6366146259) 352 pg/mL See_Comment H [Automated message] The system which generated this result transmitted reference range: <=125. The reference range was not used to interpret this result as normal/abnormal. DARWIN (test code = DARWIN) Biotin has been reported to cause a negative bias, interpret results relative to patient's use of biotin. Lab Interpretation (test code = 37590-7) Abnormal [facility] HospitalACTIVATED PARTIAL THRMPLAS [id number] 22:28:48* Test Item Value Reference Range Interpretation Comme nts APTT Patient (test code = 3173-2) See_Comment [Automated message] The system which generated this result transmitted reference range: 23 - 38 Seconds. The reference range was not used to interpret this result as normal/abnormal. DARWIN (test code = DARWIN) The RUST patient population mean normal value for aPTT is 30 seconds. Lab Interpretation (test code = 72406-5) Normal [facility] HospitalPROTHROMBIN TIME / [id number] 22:26:44* Test Item Value Reference Range Interpretation [...] the indications. Lab Interpretation (test code = 16530-8) [facility] HospitalLIPASE2021-10-01 22:20:05* Test Item Value Reference Range Interpretation Comme nts LIPASE (test code = 8387055849) 66 U/L 0-220 Lab Interpretation (test cod e = 10543-8) [facility] HospitalCBC WITH [id number] 22:07:01* Test Item Value Reference Range Interpretation [...] 33.2 g/dL 31.6-35.1 RDW-SD (test code = 21171-7) 41.6 fL 39.0-49.9 RDW-CV (test code = 788-0) 14.1 % 12.0-15.5 PLT (test code = 777-3) See_Comment [Automated mess[employer] ge] The system which generated this result transmitted reference range: 166 - 358 10*3/?L. The reference range was not used to interpret this result as normal/abnormal. MPV (test code = 46735-9) 9.2 fL 9.5-12.9 L NRBC/100 WBC (test code = 2875275801) See_Comment [[employer]ated [employer]] The system which generated this result transmitted reference range: 0.0 - 10.0 /100 WBCs. The reference range was not used to interpret this result as normal/abnormal. NRBC x10^3 (test code = 3538798962) <0.01 See_Comment [Automated mess[employer] ge] The system which generated this result transmitted reference range: 10*3/?L. The reference range was not used to interpret this result as normal/abnormal. GRAN MAT (NEUT) % (test code = 770-8) 61.6 % IMM GRAN % (test code = 5931949301) 0.60 % LYMPH % (test code = 736-9) 28.7 % MONO % (test code = 5905-5) 4.9 % EOS % (test code = 713-8) 3.7 % BASO % (test code = 706-2) 0.5 % GRAN MAT x10^3(ANC) (test code = 7643419648) 6.24 10*3/uL 1.88-7.09 IMM GRAN x10^3 (test code = 5107056112) 0.06 10*3/uL 0.00-0.06 LYMPH x10^3 (test code = 731-0) 2.90 10*3/uL 1.32-3.29 MONO x10^3 (test code = 742-7) 0.50 10*3/uL 0.33-0.92 EOS x10^3 (test code = 711-2) 0.37 10*3/uL 0.03-0.39 BASO x10^3 (test code = 704-7) 0.05 10*3/uL 0.01-0.07 Lab Interpretation (test code = 39222-9) [facility]normal [facility] HospitalURINALYSIS2021-07-08 08:49:55* Test Item Value Reference Range Interpretation Comme nts APPEARANCE (test code = 2432567454) Cloudy Clear A COLOR (test code = 1474691015) Yellow Yellow PH (test code = 3351950371) 4.8-8.0 SP GRAVITY (test code = 8140450971) 1.003-1.030 GLU U QUAL (test code = 1858712948) Normal Normal BLOOD (test code = 4427110722) Negative Negative KETONES (test code = 8010902164) Negative Negative PROTEIN (test code = 2887-8) Negative Negative UROBILIN (test code = 9088949791) Normal Normal BILIRUBIN (test code = 2717158025) 2 mg/dL Negative A NITRITE (test code = 7171351270) Negative Negative LEUK MARC (test code = 4067192352) 75/uL Negative A RBC/HPF (test code = 3151230068) See_Comment H [Automated [employer]] The system which generated this result transmitted reference range: 0 - 3 HPF. The reference range was not used to interpret this result as normal/abnormal. WBC/HPF (test code = 2468683957) See_Comment H [Automated [employer]] The system which generated this result transmitted reference range: 0 - 5 HPF. The reference range was not used to interpret this result as normal/abnormal. BACTERIA (test code = 6525281807) Moderate Negative A MUCOUS (test code = 5700010715) Slight Negative LPF A SQ EPITH (test code = 6714970494) HPF YEAST BUD (test code = 7392664299) See_Comment H [Automated messa ge] The system which generated this result transmitted reference range: <=1 HPF. The reference range was not used to interpret this result as normal/abnormal. Ictotest (test code = 5714986811) Negative Lab Interpretation (test code = 52359-8) Abnormal [facility]. METABOLIC PANEL (32010)2021-01-12 08:49:44* Test Item Value Reference Range Interpretation Comme nts NA (test code = 2211606168) 137 mmol/L 135-145 K (test code = 0587129973) 4.6 mmol/L 3.5-5.0 CL (test code = 2214271368) 108 mmol/L 98-108 CO2 TOTAL (test code = 1770346436) 21 mmol/L 23-31 L AGAP (test code = 6598236451) 2-16 BUN (test code = 0806431655) 19 mg/dL 7-23 GLUCOSE (test code = 7011876751) 107 mg/dL 70-110 CREATININE (test code = 8536702781) 0.63 mg/dL 0.50-1.04 TOTAL BILI (test code = 6118604281) 0.4 mg/dL 0.1-1.1 CALCIUM (test code = 6356433932) 9.2 mg/dL 8.6-10.6 T PROTEIN (test code = 5580497043) 7.4 g/dL 6.3-8.2 ALBUMIN (test code = 8201037125) 4.2 g/dL 3.5-5.0 ALK PHOS (test code = 1986989881) 179 U/L 34-122 H ALTv (test code = 1742-6) 113 U/L 5-35 H AST(SGOT) (test code = 2034202493) 38 U/L 13-40 eGFR (test code = 7711869092) mL/min/1.73m2 DARWIN (test code = DARWIN) Association [...] imaging tests). Lab Interpretation (test code = 75273-7) Abnormal [facility] WITH [id number] 08:11:02* Test Item Value Reference Range Interpretation Comme nts WBC (test code = 6690-2) See_Comment H [Automated [employer]] The system which generated this result transmitted reference range: 4.30 - 11.10 10*3/?L. The reference range was not used to interpret this result as normal/abnormal. RBC (test code = 789-8) See_Comment [[employer]] The system which generated this result transmitted [...] 33.3 g/dL 31.6-35.1 RDW-SD (test code = 81889-6) 41.6 fL 39.0-49.9 RDW-CV (test code = 788-0) 14.0 % 12.0-15.5 PLT (test code = 777-3) See_Comment [Automated messa ge] The system which generated this result transmitted reference range: 166 - 358 10*3/?L. The reference range was not used to interpret this result as normal/abnormal. MPV (test code = 94969-5) 9.5 fL 9.5-12.9 NRBC/100 WBC (test code = 1812913462) See_Comment [Automated [employer]] The system which generated this result transmitted reference range: 0.0 - 10.0 /100 WBCs. The reference range was not used to interpret this result as normal/abnormal. NRBC x10^3 (test code = 4598761608) <0.01 See_Comment [Automated messa ge] The system which generated this result transmitted reference range: 10*3/?L. The reference range was not used to interpret this result as normal/abnormal. GRAN MAT (NEUT) % (test code = 770-8) 68.0 % IMM GRAN % (test code = 4653120703) 0.80 % LYMPH % (test code = 736-9) 23.6 % MONO % (test code = 5905-5) 5.1 % EOS % (test code = 713-8) 2.1 % BASO % (test code = 706-2) 0.4 % GRAN MAT x10^3(ANC) (test code = 1268724709) 8.86 10*3/uL 1.88-7.09 H IMM GRAN x10^3 (test code = 4598624953) 0.11 10*3/uL 0.00-0.06 H LYMPH x10^3 (test code = 731-0) 3.07 10*3/uL 1.32-3.29 MONO x10^3 (test code = 742-7) 0.66 10*3/uL 0.33-0.92 EOS x10^3 (test code = 711-2) 0.27 10*3/uL 0.03-0.39 BASO x10^3 (test code = 704-7) 0.05 10*3/uL 0.01-0.07 Lab Interpretation (test code = 92063-9) [facility] HospitalPOCT [id number] 08:02:00* Test Item Value Reference Range Interpretation Comme nts POCT PREG (test code = 1605) negative On board controls acceptable with C Line (test code = 3574) positive POCT PREG LOT # (test code = 3575) [id number] POCT PREG TEST DATE ( test code = 3576) 07/07/2022 Lab Interpretation (test cod e = 48887-9) [facility] HospitalTROPONIN [id number] 01:55:05* Test Item Value Reference Range Interpretation Comme nts TROPONIN I (test code = 8518044273) 0.000 ng/mL See_Comment [Automated message] The system [...] biotin. ? Lab Interpretation (test code = 93290-6) [facility] HospitalChest 1 [id number] 23:41:46No radiographic evidence of an acute cardiopulmonary process. RL: 2109AFC: [id number] EXAM: XR CHEST 1 VW ORDERING PROVIDER: [...] XR CHEST 1 VWORDERING PROVIDER: BAL JEFFREYORY: CP COMPARISON: 12/04/2020 TECHNIQUE: Portable AP radiograph of the chest.FINDINGS: Overlying monitoring leads. There is no focal consolidation,pneumothorax or appreciable pleural effusion. The cardiomediastinalsilhouette is within normal limits. Trachea is midline. No acute osseousabnormality identified.IMPRESSIONNo radiographic evidence of an acute cardiopulmonary process.RL: 2109AFC: 33176 [facility] [id number] 23:07:21* Test Item Value Reference Range Interpretation Comme nts TROPONIN I (test code = 9083076034) 0.000 ng/mL See_Comment [Automated message] The system [...] biotin. ? Lab Interpretation (test code = 52677-2) [facility] HospitalN-TERMINAL [id number]-TXP3246-53-05 23:04:20* Test Item Value Reference Range Interpretation Comme nts NT-proBNP (test code = 9620050157) 14 pg/mL See_Comment [Automated message] The system which generated this result transmitted reference range: <=125. The reference range was not used to interpret this result as normal/abnormal. DARWIN (test code = DARWIN) Biotin has been reported to cause a negative bias, interpret results relative to patient's use of biotin. Lab Interpretation (test code = 16170-8) [facility] HospitalHepatic Function Panel (ALB, T.PRO, BILI T, BU/BC, ALT, AST, ALK PHOS)2020-12-10 22:58:16* Test Item Value Reference Range Interpretation Comme nts TOTAL BILI (test code = 1087621988) 0.5 mg/dL 0.1-1.1 BILI UNCON (test code = 9181049175) 0.3 mg/dL 0.1-1.1 BILI CONJ (test code = 9020610302) 0.0 mg/dL 0.0-0.3 T PROTEIN (test code = 3945489963) 8.1 g/dL 6.3-8.2 ALBUMIN (test code = 7930755098) 4.7 g/dL 3.5-5.0 ALK PHOS (test code = 4335005488) 104 U/L 34-122 ALTv (test code = 1742-6) 18 U/L 5-35 AST(SGOT) (test code = 2468125166) 23 U/L 13-40 Lab Interpretation (test cod e = 93013-1) [facility] Metabolic Panel (NA, K, CL, CO2, GLUCOSE, BUN, CREATININE, CA)2020-12-10 22:57:56* Test Item Value Reference Range Interpretation Comme nts NA (test code = 9597957733) 135 mmol/L 135-145 K (test code = 4065373854) 3.7 mmol/L 3.5-5.0 CL (test code = 8302919788) 105 mmol/L 98-108 CO2 TOTAL (test code = 6667732085) 18 mmol/L 23-31 L AGAP (test code = 0668669571) 2-16 BUN (test code = 0660159508) 14 mg/dL 7-23 GLUCOSE (test code = 7818382220) 108 mg/dL 70-110 CREATININE (test code = 9815405159) 0.56 mg/dL 0.50-1.04 CALCIUM (test code = 2012630014) 9.8 mg/dL 8.6-10.6 eGFR (test code = 4918739024) mL/min/1.73m2 DARWIN (test code = DARWIN) Association [...] imaging tests). Lab Interpretation (test code = 36384-4) [facility]normal [facility] HospitalLipase Rwwal4271-86-01 22:57:56* Test Item Value Reference Range Interpretation Comme nts LIPASE (test code = 5049345859) 122 U/L 0-220 Lab Interpretation (test cod e = 73874-2) [facility] HospitalD-EIENG8427-36-88 22:52:34* Test Item Value Reference Range Interpretation Comments D-DIMER (test code = 0955500864) See_Comment [Automated message] The system which generated [...] a diagnosis. Lab Interpretation (test code = 84819-4) Normal [facility] HospitalUrinalysis2021-06-05 22:52:29* Test Item Value Reference Range Interpretation Comme nts APPEARANCE (test code = 0007218873) Hazy Clear A COLOR (test code = 2085402483) Yellow Yellow PH (test code = 6695115922) 4.8-8.0 SP GRAVITY (test code = 4842036570) 1.003-1.030 GLU U QUAL (test code = 4829185164) Normal Normal BLOOD (test code = 7060273448) Negative Negative KETONES (test code = 4352716249) Negative Negative PROTEIN (test code = 2887-8) Negative Negative UROBILIN (test code = 3740119595) Normal Normal BILIRUBIN (test code = 2134144068) 2 mg/dL Negative A NITRITE (test code = 4322100522) Negative Negative LEUK MARC (test code = 4525440978) 25/uL Negative A RBC/HPF (test code = 2336867651) See_Comment [Automated messa ge] The system which generated this result transmitted reference range: 0 - 3 HPF. The reference range was not used to interpret this result as normal/abnormal. WBC/HPF (test code = 0119317935) See_Comment [Automated messa ge] The system which generated this result transmitted reference range: 0 - 5 HPF. The reference range was not used to interpret this result as normal/abnormal. BACTERIA (test code = 4985076201) Few Negative A MUCOUS (test code = 7554393980) Slight Negative LPF A SQ EPITH (test code = 2224619775) HPF Lab Interpretation (test code = 52835-3) Abnormal [facility] with Royyshwprrfi5214-70-39 22:45:56* Test Item Value Reference Range Interpretation [...] 33.5 g/dL 31.6-35.1 RDW-SD (test code = 50211-5) 40.5 fL 39.0-49.9 RDW-CV (test code = 788-0) 13.3 % 12.0-15.5 PLT (test code = 777-3) See_Comment H [Automated message] The system which generated this result transmitted reference range: 166 - 358 10*3/?L. The reference range was not used to interpret this result as normal/abnormal. MPV (test code = 40620-3) 9.2 fL 9.5-12.9 L NRBC/100 WBC (test code = 7931881478) See_Comment [Automated message] The system which generated this result transmitted reference range: 0.0 - 10.0 /100 WBCs. The reference range was not used to interpret this result as normal/abnormal. NRBC x10^3 (test code = 8512831784) <0.01 See_Comment [Automated message] The system which generated this result transmitted reference range: 10*3/?L. The reference range was not used to interpret this result as normal/abnormal. GRAN MAT (NEUT) % (test code = 770-8) 73.4 % IMM GRAN % (test code = 1931697399) 0.50 % LYMPH % (test code = 736-9) 17.5 % MONO % (test code = 5905-5) 6.5 % EOS % (test code = 713-8) 1.6 % BASO % (test code = 706-2) 0.5 % GRAN MAT x10^3(ANC) (test code = 8780820554) 10.21 10*3/uL 1.88-7.09 H IMM GRAN x10^3 (test code = 8655059040) 0.07 10*3/uL 0.00-0.06 H LYMPH x10^3 (test code = 731-0) 2.44 10*3/uL 1.32-3.29 MONO x10^3 (test code = 742-7) 0.90 10*3/uL 0.33-0.92 EOS x10^3 (test code = 711-2) 0.22 10*3/uL 0.03-0.39 BASO x10^3 (test code = 704-7) 0.07 10*3/uL 0.01-0.07 Lab Interpretation (test code = 45547-4) Abnormal [facility] [id number] 22:32:00* Test Item Value Reference Range Interpretation Comme nts POCT PREG (test code = 1605) negative On board controls acceptable with C Line (test code = 3574) present POCT PREG LOT # (test code = 3575) [id number] POCT PREG TEST DATE ( test code = 3576) 06/06/2022 Lab Interpretation (test cod e = 54826-3) [facility] 21:34:43* Test Item Value Reference Range Interpretation Comme nts APPEARANCE (test code = 4861878780) Clear Clear COLOR (test code = 2133538122) Yellow Yellow PH (test code = 2742066466) 4.8-8.0 SP GRAVITY (test code = 7397629302) 1.003-1.030 GLU U QUAL (test code = 5949621793) Normal Normal BLOOD (test code = 3132615036) Negative Negative KETONES (test code = 5502725997) Negative Negative PROTEIN (test code = 2887-8) Negative Negative UROBILIN (test code = 6110422288) Normal Normal BILIRUBIN (test code = 6648759396) Negative Negative NITRITE (test code = 5078862162) Negative Negative LEUK MARC (test code = 9616036926) Negative Negative RBC/HPF (test code = 3881727462) See_Comment [Automated messa ge] The system which generated this result transmitted reference range: 0 - 3 HPF. The reference range was not used to interpret this result as normal/abnormal. WBC/HPF (test code = 6050362765) <1 See_Comment [Automated messa ge] The system which generated this result transmitted reference range: 0 - 5 HPF. The reference range was not used to interpret this result as normal/abnormal. BACTERIA (test code = 2177001665) Negative Negative MUCOUS (test code = 1070837160) Slight Negative LPF A SQ EPITH (test code = 6107806897) HPF Lab Interpretation (test code = 75313-1) Abnormal [facility] Tgmq5762-47-62 21:18:00* Test Item Value Reference Range Interpretation Comme nts POCT PREG (test code = 1605) negative On board controls acceptable with C Line (test code = 3574) present POCT PREG LOT # (test code = 3575) [id number] POCT PREG TEST DATE ( test code = 3576) 06/06/2022 Lab Interpretation (test cod e = 31114-4) [facility]+ VW [id number] 21:11:00No acute bony abnormality. Preliminary Report Dictated [...] reviewed this study and agree with the abovereport.[facility] HospitalTroponin [id number] 20:59:44* Test Item Value Reference Range Interpretation Comme nts TROPONIN I (test code = 9289697685) 0.000 ng/mL See_Comment [Automated message] The system [...] biotin. ? Lab Interpretation (test code = 79578-2) Normal [facility] HospitalLipase Khpxe6507-18-53 20:48:20* Test Item Value Reference Range Interpretation Comme nts LIPASE (test code = 9311844435) 96 U/L 0-220 Lab Interpretation (test cod e = 56342-8) [facility] HospitalBasic Metabolic Panel (NA, K, CL, CO2, GLUCOSE, BUN, CREATININE, CA)2020-12-04 20:48:20* Test Item Value Reference Range Interpretation Comme nts NA (test code = 5103144704) 138 mmol/L 135-145 K (test code = 7870541151) 3.8 mmol/L 3.5-5.0 CL (test code = 9973938491) 108 mmol/L 98-108 CO2 TOTAL (test code = 1247029946) 21 mmol/L 23-31 L AGAP (test code = 6236195606) 2-16 BUN (test code = 7749143352) 13 mg/dL 7-23 GLUCOSE (test code = 8033772637) 107 mg/dL 70-110 CREATININE (test code = 0606986188) 0.66 mg/dL 0.50-1.04 CALCIUM (test code = 5497345985) 9.3 mg/dL 8.6-10.6 eGFR (test code = 6784843368) mL/min/1.73m2 DARWIN (test code = DARWIN) Association [...] imaging tests). Lab Interpretation (test code = 56584-8) [facility]normal [facility] HospitalHepatic Function Panel (ALB, T.PRO, BILI T, BU/BC, ALT, AST, ALK PHOS)2020-12-04 20:48:20* Test Item Value Reference Range Interpretation Comme nts TOTAL BILI (test code = 4861979203) 0.3 mg/dL 0.1-1.1 BILI UNCON (test code = 0250377829) 0.1 mg/dL 0.1-1.1 BILI CONJ (test code = 8869219978) 0.0 mg/dL 0.0-0.3 T PROTEIN (test code = 5313669462) 7.0 g/dL 6.3-8.2 ALBUMIN (test code = 1640291532) 4.0 g/dL 3.5-5.0 ALK PHOS (test code = 5573813853) 114 U/L 34-122 ALTv (test code = 1742-6) 30 U/L 5-35 AST(SGOT) (test code = 6818787656) 23 U/L 13-40 Lab Interpretation (test cod e = 29759-9) Normal [facility] with Hxdwqjbkxqfp7783-27-16 20:35:01* Test Item Value Reference Range Interpretation [...] 34.0 g/dL 31.6-35.1 RDW-SD (test code = 33969-4) 39.8 fL 39.0-49.9 RDW-CV (test code = 788-0) 12.9 % 12.0-15.5 PLT (test code = 777-3) See_Comment [Automated [employer] ge] The system which generated this result transmitted reference range: 166 - 358 10*3/?L. The reference range was not used to interpret this result as normal/abnormal. MPV (test code = 06638-6) 9.3 fL 9.5-12.9 L NRBC/100 WBC (test code = 7587750018) See_Comment [Automated [employer] ssage] The system which generated this result transmitted reference range: 0.0 - 10.0 /100 WBCs. The reference range was not used to interpret this result as normal/abnormal. NRBC x10^3 (test code = 9998843058) <0.01 See_Comment [Automated messa ge] The system which generated this result transmitted reference range: 10*3/?L. The reference range was not used to interpret this result as normal/abnormal. GRAN MAT (NEUT) % (test code = 770-8) 71.5 % IMM GRAN % (test code = 7946848275) 0.30 % LYMPH % (test code = 736-9) 19.8 % MONO % (test code = 5905-5) 6.2 % EOS % (test code = 713-8) 1.8 % BASO % (test code = 706-2) 0.4 % GRAN MAT x10^3(ANC) (test code = 2403338126) 6.79 10*3/uL 1.88-7.09 IMM GRAN x10^3 (test code = 3791937723) 0.03 10*3/uL 0.00-0.06 LYMPH x10^3 (test code = 731-0) 1.88 10*3/uL 1.32-3.29 MONO x10^3 (test code = 742-7) 0.59 10*3/uL 0.33-0.92 EOS x10^3 (test code = 711-2) 0.17 10*3/uL 0.03-0.39 BASO x10^3 (test code = 704-7) 0.04 10*3/uL 0.01-0.07 Lab Interpretation (test code = 35710-0) Abnormal [facility] HospitalDRUG SCREEN ER (URINE)2020-11-04 02:54:38* Test Item Value Reference Range Interpretation Comme nts AMPHET (test code = 5318311024) Negative Negative Cocaine Metabolite (test code = 5784273974) Negative Negative OPIATES (test code = 0156839049) Presumptive Positive Negative A THC (test code = 4596090083) Negative Negative DARWIN (test code = DARWIN) Urine Drug Cutoff Ranges Amphetamine: ? 1,000 ng/mLCocaine: ? 150 ng/mLOpiates: ? 300 ng/mLCannabinoids: ?50 ng/mL The results are to be used only for medical (i.e., treatment) purposes. Unconfirmed screening results must not be used for non-medical purposes (e.g., employment testing, legal testing). Lab Interpretation (test code = 71891-8) Abnormal [facility] HospitalTROPONIN [id number] 02:51:11* Test Item Value Reference Range Interpretation Comme nts TROPONIN I (test code = 2723767636) 0.001 ng/mL See_Comment [Automated message] The system [...] biotin. ? Lab Interpretation (test code = 54797-0) Normal [facility] HospitalaPTT2021-04-30 02:41:10* Test Item Value Reference Range Interpretation Comme nts APTT Patient (test code = 3173-2) See_Comment [Automated message] The system which generated this result transmitted reference range: 23 - 38 Seconds. The reference range was not used to interpret this result as normal/abnormal. DARWIN (test code = DARWIN) The RUST patient population mean normal value for aPTT is 30 seconds. Lab Interpretation (test code = 82123-7) Normal [facility] HospitalURINALYSIS2021-04-30 02:40:40* Test Item Value Reference Range Interpretation Comme nts APPEARANCE (test code = 4999535162) Clear Clear COLOR (test code = 5746483775) Yellow Yellow PH (test code = 3177602743) 4.8-8.0 SP GRAVITY (test code = 9086915345) 1.003-1.030 GLU U QUAL (test code = 7183684188) Normal Normal BLOOD (test code = 5641994750) Negative Negative KETONES (test code = 5247843279) Negative Negative PROTEIN (test code = 2887-8) Negative Negative UROBILIN (test code = 7648842654) Normal Normal BILIRUBIN (test code = 8976724695) Negative Negative NITRITE (test code = 3152053390) Negative Negative LEUK MARC (test code = 0425570196) Negative Negative RBC/HPF (test code = 4500421639) <1 See_Comment [Automated [employer]] The system which generated this result transmitted reference range: 0 - 3 HPF. The reference range was not used to interpret this result as normal/abnormal. WBC/HPF (test code = 6175645462) <1 See_Comment [Automated [employer] ge] The system which generated this result transmitted reference range: 0 - 5 HPF. The reference range was not used to interpret this result as normal/abnormal. BACTERIA (test code = 7376260707) Negative Negative MUCOUS (test code = 6655774900) Slight Negative LPF A SQ EPITH (test code = 0041017999) HPF Lab Interpretation (test code = 95833-1) Abnormal [facility]. METABOLIC PANEL (22904)2020-11-04 02:40:09* Test Item Value Reference Range Interpretation Comme nts NA (test code = 1663859819) 141 mmol/L 135-145 K (test code = 8790858445) 4.1 mmol/L 3.5-5.0 CL (test code = 6427958071) 110 mmol/L 98-108 H CO2 TOTAL (test code = 8008518159) 22 mmol/L 23-31 L AGAP (test code = 4015564777) 2-16 BUN (test code = 7048521555) 15 mg/dL 7-23 GLUCOSE (test code = 1420642250) 115 mg/dL 70-110 H CREATININE (test code = 4430236242) 0.69 mg/dL 0.50-1.04 TOTAL BILI (test code = 2726566796) 0.2 mg/dL 0.1-1.1 CALCIUM (test code = 0857771504) 9.2 mg/dL 8.6-10.6 T PROTEIN (test code = 9160524953) 6.8 g/dL 6.3-8.2 ALBUMIN (test code = 4401414188) 4.1 g/dL 3.5-5.0 ALK PHOS (test code = 3870472726) 69 U/L 34-122 ALTv (test code = 1742-6) 20 U/L 5-35 AST(SGOT) (test code = 0726582744) 23 U/L 13-40 eGFR (test code = 4168964108) mL/min/1.73m2 DARWIN (test code = DARWIN) Association [...] imaging tests). Lab Interpretation (test code = 44670-9) Abnormal [facility] HospitalLIPASE, KQGXF4672-08-04 02:39:49* Test Item Value Reference Range Interpretation Comme nts LIPASE (test code = 1515510749) 117 U/L 0-220 Lab Interpretation (test cod e = 38954-5) Normal [facility] HospitalPROTHROMBIN TIME / [id number] 02:39:08* Test Item Value Reference Range Interpretation Comme nts PROTIME PATIENT (test code = 5964-2) See_Comment [Automated [employer]] The system which generated this result transmitted reference range: 12.0 - 14.7 Seconds. The reference range was not used to interpret this result as normal/abnormal. INR (test code = 6301-6) Normal INR <1.1; Warfarin Therapeutic range 2.0 to 3.0 or 2.5 to 3.5, depending upon the indications. Lab Interpretation (test code = 74185-7) Normal [facility] HospitalCBC WITH [id number] 02:30:11* Test Item Value Reference Range Interpretation Comme nts WBC (test code = 6690-2) See_Comment H [Automated [employer]] The system which generated this result transmitted reference range: 4.30 - 11.10 10*3/?L. The reference range was not used to interpret this result as normal/abnormal. RBC (test code = 789-8) See_Comment [Automated [employer]] The system which generated this result [...] 32.8 g/dL 31.6-35.1 RDW-SD (test code = 09626-4) 44.1 fL 39.0-49.9 RDW-CV (test code = 788-0) 13.8 % 12.0-15.5 PLT (test code = 777-3) See_Comment [Automated messa ge] The system which generated this result transmitted reference range: 166 - 358 10*3/?L. The reference range was not used to interpret this result as normal/abnormal. MPV (test code = 33537-3) 9.6 fL 9.5-12.9 NRBC/100 WBC (test code = 7326965450) See_Comment [Automated me ssage] The system which generated this result transmitted reference range: 0.0 - 10.0 /100 WBCs. The reference range was not used to interpret this result as normal/abnormal. NRBC x10^3 (test code = 8633143200) <0.01 See_Comment [Automated messa ge] The system which generated this result transmitted reference range: 10*3/?L. The reference range was not used to interpret this result as normal/abnormal. GRAN MAT (NEUT) % (test code = 770-8) 65.9 % IMM GRAN % (test code = 9760871195) 0.70 % LYMPH % (test code = 736-9) 25.9 % MONO % (test code = 5905-5) 5.1 % EOS % (test code = 713-8) 2.0 % BASO % (test code = 706-2) 0.4 % GRAN MAT x10^3(ANC) (test code = 7516810099) 8.82 10*3/uL 1.88-7.09 H IMM GRAN x10^3 (test code = 1318711468) 0.09 10*3/uL 0.00-0.06 H LYMPH x10^3 (test code = 731-0) 3.46 10*3/uL 1.32-3.29 H MONO x10^3 (test code = 742-7) 0.68 10*3/uL 0.33-0.92 EOS x10^3 (test code = 711-2) 0.27 10*3/uL 0.03-0.39 BASO x10^3 (test code = 704-7) 0.05 10*3/uL 0.01-0.07 Lab Interpretation (test code = 27229-0) [facility]normal [facility] HospitalCOVID-19 (ID NOW RAPID TESTING)2020-09-17 16:56:05* Test Item Value Reference Range Interpretation Comme nts SARS-CoV-2 Rapid ID NOW (test code = 43212-8) Not Detected Not Detected DARWIN (test code = DARWIN) ID NOW COVID-19 As say is an isothermal nucleic acid amplification test intended for the qualitative detection of nucleic acid from SARS-CoV-2 viral RNA in nasopharyngeal (REPAIRER FINISHED METAL) specimens. It is used under Emergency Use [...] clinically indicated. Lab Interpretation (test code = 87702-7) Normal [facility] HospitalRAPID STREP SCREEN FOR GROUP [id number] 16:54:09* Test Item Value Reference Range Interpretation Comme nts Streptococcus pyogenes (grou p A) antigen (test code = 25721-9) Negative Negative Lab Interpretation (test cod e = 95777-9) Normal [facility] HospitalXR [facility] 3+ VW [id number] 07:29:48 Impression: No acute fracture or dislocation. RL: 2824AFC: 43189 End of Report Exam: Left Hand, 09/07/2020 [...] swelling.IMPRESSIONImpression: No acute fracture or dislocation.RL: 2824AFC: 10784Doo of Report [facility]XR [facility] 2 VW [id number] 07:28:55No acute abnormality of the left forearm. RL: 6200AFC: 16996 Patient name: CHARITY MONROYOB: 1980 40 years EXAMINATION: XR FOREARM 2 VW LEFT Ordering Physician: Slaeem EDWARD CLINICAL HISTORY:crush injury COMPARISON:None TECHNIQUE:Frontal and lateral views of the left forearm performed FINDINGS:No fracture or dislocation identified. No joint space narrowing. No osseouslesions. No elbow joint effusion. Soft tissues are intact. [facility], Radiant Results Inft User - 09/07/2020 1:29 AM CSTPatient name: CHARITY JOHNSONGEDOB: 1980 40 years EXAMINATION: XR FOREARM 2 VW LEFTOrdering Physician: Saleem EDWARD CLINICAL HISTORY:crush injury COMPARISON:NoneTECHNIQUE:Frontal and lateral views of the left forearm performedFINDINGS:No fracture or dislocation identified. No joint space narrowing. No osseouslesions. No elbow joint effusion. Soft tissues are intact.IMPRESSIONNo acute abnormality of the left forearm.RL: 6200AFC: 27471 [facility] CenterUrinalysis2021-02-21 09:06:00* Test Item Value Reference Range Interpretation Comme nts APPEARANCE (test code = 2013620839) Hazy Clear A COLOR (test code = 9545136541) Yellow Yellow PH (test code = 5987717191) 4.8-8.0 SP GRAVITY (test code = 8582848264) 1.003-1.030 GLU U QUAL (test code = 5975142634) Normal Normal BLOOD (test code = 2440321094) Negative Negative KETONES (test code = 8044668827) Negative Negative PROTEIN (test code = 2887-8) Negative Negative UROBILIN (test code = 0926723025) Normal Normal BILIRUBIN (test code = 4722955438) Negative Negative NITRITE (test code = 1714278720) Negative Negative LEUK MARC (test code = 9874229090) Negative Negative RBC/HPF (test code = 3567265074) See_Comment [Automated messa ge] The system which generated this result transmitted reference range: 0 - 3 HPF. The reference range was not used to interpret this result as normal/abnormal. WBC/HPF (test code = 9700498034) <1 See_Comment [Automated messa ge] The system which generated this result transmitted reference range: 0 - 5 HPF. The reference range was not used to interpret this result as normal/abnormal. BACTERIA (test code = 3536845908) Moderate Negative A SQ EPITH (test code = 3290910468) HPF Lab Interpretation (test code = 55892-4) Abnormal [facility] with Wxjlbksshkcb3585-51-45 08:50:00* Test Item Value Reference Range Interpretation [...] 34.0 g/dL 31.6-35.1 RDW-SD (test code = 39620-3) 42.6 fL 39-49.9 RDW-CV (test code = 788-0) 13.6 % 12-15.5 PLT (test code = 777-3) See_Comment H [Automated messa ge] The system which generated this result transmitted reference range: 166 - 358 10*3/?L. The reference range was not used to interpret this result as normal/abnormal. MPV (test code = 61061-3) 9.7 fL 9.5-12.9 NRBC/100 WBC (test code = 3974443954) See_Comment [Automated me ssage] The system which generated this result transmitted reference range: 0.0 - 10.0 /100 WBCs. The reference range was not used to interpret this result as normal/abnormal. NRBC x10^3 (test code = 4573440990) <0.01 See_Comment [Automated messa ge] The system which generated this result transmitted reference range: 10*3/?L. The reference range was not used to interpret this result as normal/abnormal. GRAN MAT (NEUT) % (test code = 770-8) 49.7 % IMM GRAN % (test code = 3665355840) 0.50 % LYMPH % (test code = 736-9) 41.0 % MONO % (test code = 5905-5) 6.5 % EOS % (test code = 713-8) 1.9 % BASO % (test code = 706-2) 0.4 % GRAN MAT x10^3(ANC) (test code = 0648824966) 6.39 10*3/uL 1.88-7.09 IMM GRAN x10^3 (test code = 9564885243) 0.07 10*3/uL 0-0.06 H LYMPH x10^3 (test code = 731-0) 5.27 10*3/uL 1.32-3.29 H MONO x10^3 (test code = 742-7) 0.84 10*3/uL 0.33-0.92 EOS x10^3 (test code = 711-2) 0.24 10*3/uL 0.03-0.39 BASO x10^3 (test code = 704-7) 0.05 10*3/uL 0.01-0.07 Lab Interpretation (test code = 50632-1) [facility]normal [facility] HospitalPONV Kcuc3573-40-32 08:45:00* Test Item Value Reference Range Interpretation Comme nts POCT PREG (test code = 1605) neg On board controls acceptable with C Line (test code = 3574) yes POCT PREG LOT # (test code = 3575) [id number] POCT PREG TEST DATE ( test code = 3576) 04/06/2022 Lab Interpretation (test cod e = 11734-6) [facility] HospitalComplete Metabolic Jrtkk2884-14-19 08:30:00* Test Item Value Reference Range Interpretation Comme nts NA (test code = 9732802193) 137 mmol/L 135-145 K (test code = 1851624783) 3.3 mmol/L 3.5-5 L CL (test code = 3834954951) 102 mmol/L 98-108 CO2 TOTAL (test code = 5695737113) 24 mmol/L 23-31 AGAP (test code = 8426970230) 2-16 BUN (test code = 9154625441) 9 mg/dL 7-23 GLUCOSE (test code = 3846856822) 116 mg/dL 70-110 H CREATININE (test code = 2010103540) 0.48 mg/dL 0.5-1.04 L TOTAL BILI (test code = 8506702557) 0.3 mg/dL 0.1-1.1 CALCIUM (test code = 7114133510) 9.4 mg/dL 8.6-10.6 T PROTEIN (test code = 7572143013) 7.0 g/dL 6.3-8.2 ALBUMIN (test code = 8777617401) 4.3 g/dL 3.5-5 ALK PHOS (test code = 8774236120) 127 U/L 34-122 H ALTv (test code = 1742-6) 87 U/L 5-35 H AST(SGOT) (test code = 8983771293) 34 U/L 13-40 eGFR Calculation (Non-) (test code = 5569912945) mL/min/1.73m2 eGFR Calculation () (test code = 3721824541) mL/min/1.73m2 DARWIN (test code = DARWIN) Association [...] imaging tests). Lab Interpretation (test code = 44257-9) [facility]normal [facility] HospitalLipase, Dafzx0978-31-30 08:30:00* Test Item Value Reference Range Interpretation Comme nts LIPASE (test code = 7791056279) 297 U/L 0-220 H Lab Interpretation (test cod e = 75323-9) Abnormal [facility] HospitalURINALYSIS2021-02-07 19:25:00* Test Item Value Reference Range Interpretation Comme nts APPEARANCE (test code = 8243848462) Clear Clear COLOR (test code = 8838940482) Straw Yellow A PH (test code = 9286781353) 4.8-8.0 SP GRAVITY (test code = 0101146444) 1.003-1.030 GLU U QUAL (test code = 0811375298) Normal Normal BLOOD (test code = 2519198084) 1+ Negative A KETONES (test code = 8676008898) Negative Negative PROTEIN (test code = 2887-8) Negative Negative UROBILIN (test code = 0125877833) Normal Normal BILIRUBIN (test code = 8531555924) Negative Negative NITRITE (test code = 5821252323) Negative Negative LEUK MARC (test code = 0278795491) Negative Negative RBC/HPF (test code = 7596367701) See_Comment [Automated [employer]] The system which generated this result transmitted reference range: 0 - 3 HPF. The reference range was not used to interpret this result as normal/abnormal. WBC/HPF (test code = 2461933792) <1 See_Comment [Automated [employer]] The system which generated this result transmitted reference range: 0 - 5 HPF. The reference range was not used to interpret this result as normal/abnormal. BACTERIA (test code = 1503120888) Few Negative A MUCOUS (test code = 5759791470) Slight Negative LPF A SQ EPITH (test code = 3016224693) HPF Lab Interpretation (test code = 26437-2) [facility]CA[facility] [id number] 19:09:00* Test Item Value Reference Range Interpretation Comme nts TROPONIN I (test code = 9911786109) <0.012 See_Comment [Automated message] The system which [...] biotin. ? Lab Interpretation (test code = 56134-9) [facility]ADC [facility] - DRUG SCREEN RBRWMR3833-93-69 19:09:00* Test Item Value Reference Range Interpretation Comme nts BENZO U (test code = 8960670572) Presumptive Positive Negative A ROSA U (test code = 9887915609) Negative Negative AMPHET (test code = 8375455571) Negative Negative THC (test code = 1470790767) Negative Negative METHADONE (test code = 5567556418) Negative Negative Meth U (test code = 9056070280) Negative Negative OPIATES (test code = 4567274648) Negative Negative Cocaine Metabolite (test code = 1688173838) Negative Negative PROPOXY (test code = 2981466659) Negative Negative Tric U (test code = 9515991515) Negative Negative PCP (test code = 7083544196) Negative Negative OXYCOD (test code = 0745018000) Negative Negative DARWIN (test code = DARWIN) [...] legal testing). Lab Interpretation (test code = 20226-1) [facility] MET[facility]OLIC PAN[facility] (76716)2020-08-14 19:01:00* Test Item Value Reference Range Interpretation Comme nts NA (test code = 5099877307) 138 mmol/L 135-145 K (test code = 1398037487) 4.5 mmol/L 3.5-5 CL (test code = 9378896756) 106 mmol/L 98-108 CO2 TOTAL (test code = 1271804275) 21 mmol/L 23-31 L AGAP (test code = 7678329517) 2-16 BUN (test code = 4086308764) 13 mg/dL 7-23 GLUCOSE (test code = 7267372958) 97 mg/dL 70-110 CREATININE (test code = 7941849981) 0.48 mg/dL 0.5-1.04 L TOTAL BILI (test code = 4264816243) 0.4 mg/dL 0.1-1.1 CALCIUM (test code = 3653059829) 9.1 mg/dL 8.6-10.6 T PROTEIN (test code = 5467203276) 7.5 g/dL 6.3-8.2 ALBUMIN (test code = 4805893333) 4.3 g/dL 3.5-5 ALK PHOS (test code = 0228933798) 62 U/L 34-122 ALTv (test code = 1742-6) 19 U/L 5-35 AST(SGOT) (test code = 2455457401) 26 U/L 13-40 eGFR Calculation (Non-) (test code = 1752980163) mL/min/1.73m2 eGFR Calculation () (test code = 9951414545) mL/min/1.73m2 DARWIN (test code = DARWIN) Association [...] imaging tests). Lab Interpretation (test code = 97839-0) [facility] HospitalLIPASE2021-[facility]-07 19:01:00* Test Item Value Reference Range Interpretation Comme nts LIPASE (test code = 8494739304) 76 U/L 0-220 Lab Interpretation (test cod e = 30445-8) [facility] HospitalCB WITH [id number] 18:47:00* Test Item Value Reference Range Interpretation Comme nts WBC (test code = 6690-2) See_Comment H [Automated [employer]] The system which generated this result transmitted reference range: 4.30 - 11.10 10*3/?L. The reference range was not used to interpret this result as normal/abnormal. RBC (test code = 789-8) See_Comment [Automated [employer]] The system which generated this result transmitted [...] 34.3 g/dL 31.6-35.1 RDW-SD (test code = 04065-1) 42.0 fL 39-49.9 RDW-CV (test code = 788-0) 13.4 % 12-15.5 PLT (test code = 777-3) See_Comment [Automated messa ge] The system which generated this result transmitted reference range: 166 - 358 10*3/?L. The reference range was not used to interpret this result as normal/abnormal. MPV (test code = 02399-6) 9.9 fL 9.5-12.9 NRBC/100 WBC (test code = 6954155382) See_Comment [Automated [employer] ssage] The system which generated this result transmitted reference range: 0.0 - 10.0 /100 WBCs. The reference range was not used to interpret this result as normal/abnormal. NRBC x10^3 (test code = 0052444085) <0.01 See_Comment [Automated messa ge] The system which generated this result transmitted reference range: 10*3/?L. The reference range was not used to interpret this result as normal/abnormal. GRAN MAT (NEUT) % (test code = 770-8) 60.1 % IMM GRAN % (test code = 7072875047) 0.40 % LYMPH % (test code = 736-9) 31.3 % MONO % (test code = 5905-5) 6.0 % EOS % (test code = 713-8) 1.9 % BASO % (test code = 706-2) 0.3 % GRAN MAT x10^3(ANC) (test code = 2677277027) 6.96 10*3/uL 1.88-7.09 IMM GRAN x10^3 (test code = 0271149180) 0.05 10*3/uL 0-0.06 LYMPH x10^3 (test code = 731-0) 3.62 10*3/uL 1.32-3.29 H MONO x10^3 (test code = 742-7) 0.69 10*3/uL 0.33-0.92 EOS x10^3 (test code = 711-2) 0.22 10*3/uL 0.03-0.39 BASO x10^3 (test code = 704-7) 0.04 10*3/uL 0.01-0.07 Lab Interpretation (test code = 40945-2) [facility] [id number] 18:17:08No acute cardiopulmonary abnormality. Preliminary Report Dictated [...] reviewed this study and agree with theabove report.[facility] Hospital[facility] Whole Xcayo3834-95-60 18:11:00* Test Item Value Reference Range Interpretation Comme nts LACTIC ACID (test code = 9809563001) 1.95 mmol/L 0.5-2.2 Lab Interpretation (test cod e = 31387-8) [facility]EL[facility] WO [id number] 05:45:24No acute abdominopelvic abnormality. No urolithiasis. 2.5 [...] mild spinal canal stenosis at these levels. [facility], Radiant Results Inft User - 08/10/2020 11:46 [...] reviewed this study and agree with the abovereport.[facility]ON[facility] [id number] 03:10:00* Test Item Value Reference Range Interpretation Comme nts POCT PREG (test code = 1605) Negative On board controls acceptable with C Line (test code = 3574) Present POCT PREG LOT # (test code = 3575) [id number] POCT PREG TEST DATE ( test code = 3576) 03/07/2022 Lab Interpretation (test cod e = 30365-1) Normal [facility] with Hetrhfdtzkmw4471-26-19 03:05:00* Test Item Value Reference Range Interpretation [...] 34.7 g/dL 31.6-35.1 RDW-SD (test code = 79280-3) 42.0 fL 39-49.9 RDW-CV (test code = 788-0) 13.5 % 12-15.5 PLT (test code = 777-3) See_Comment [Automated message] The system which generated this result transmitted reference range: 166 - 358 10*3/?L. The reference range was not used to interpret this result as normal/abnormal. MPV (test code = 47554-8) 9.8 fL 9.5-12.9 NRBC/100 WBC (test code = 2872606660) See_Comment [Automated message] The system which generated this result transmitted reference range: 0.0 - 10.0 /100 WBCs. The reference range was not used to interpret this result as normal/abnormal. NRBC x10^3 (test code = 2442131688) <0.01 See_Comment [Automated message] The system which generated this result transmitted reference range: 10*3/?L. The reference range was not used to interpret this result as normal/abnormal. GRAN MAT (NEUT) % (test code = 770-8) 66.2 % IMM GRAN % (test code = 3397518397) 0.60 % LYMPH % (test code = 736-9) 25.4 % MONO % (test code = 5905-5) 5.6 % EOS % (test code = 713-8) 1.9 % BASO % (test code = 706-2) 0.3 % GRAN MAT x10^3(ANC) (test code = 3997991226) 10.64 10*3/uL 1.88-7.09 H IMM GRAN x10^3 (test code = 8794720048) 0.09 10*3/uL 0-0.06 H LYMPH x10^3 (test code = 731-0) 4.09 10*3/uL 1.32-3.29 H MONO x10^3 (test code = 742-7) 0.90 10*3/uL 0.33-0.92 EOS x10^3 (test code = 711-2) 0.31 10*3/uL 0.03-0.39 BASO x10^3 (test code = 704-7) 0.05 10*3/uL 0.01-0.07 Lab Interpretation (test code = 41273-4) [facility]normal [facility] HospitalUrinalysis2021-02-04 02:56:00* Test Item Value Reference Range Interpretation Comme nts APPEARANCE (test code = 6620837996) Hazy Clear A COLOR (test code = 4077447365) Yellow Yellow PH (test code = 9925572533) 4.8-8.0 SP GRAVITY (test code = 0847879315) 1.003-1.030 GLU U QUAL (test code = 9383527581) Normal Normal BLOOD (test code = 4154242034) Negative Negative KETONES (test code = 3964172588) Negative Negative PROTEIN (test code = 2887-8) Negative Negative UROBILIN (test code = 8453025697) Normal Normal BILIRUBIN (test code = 6906879775) Negative Negative NITRITE (test code = 9194766238) Negative Negative LEUK MARC (test code = 0458420874) Negative Negative RBC/HPF (test code = 7693886457) See_Comment [Automated messa ge] The system which generated this result transmitted reference range: 0 - 3 HPF. The reference range was not used to interpret this result as normal/abnormal. WBC/HPF (test code = 5931509248) See_Comment [Automated messa ge] The system which generated this result transmitted reference range: 0 - 5 HPF. The reference range was not used to interpret this result as normal/abnormal. BACTERIA (test code = 2112366421) Few Negative A MUCOUS (test code = 6356241780) Slight Negative LPF A SQ EPITH (test code = 9249842774) HPF YEAST BUD (test code = 5963731843) See_Comment H [Automated messa ge] The system which generated this result transmitted reference range: <=1 HPF. The reference range was not used to interpret this result as normal/abnormal. Lab Interpretation (test code = 46798-3) Abnormal [facility] HospitalTroponin [id number] 02:24:00* Test Item Value Reference Range Interpretation Comme nts TROPONIN I (test code = 5038997673) <0.012 See_Comment [Automated message] The system which [...] biotin. ? Lab Interpretation (test code = 30597-6) Normal [facility] (ID NOW RAPID TESTING)2020-08-11 02:15:00* Test Item Value Reference Range Interpretation Comme nts SARS-CoV-2 Rapid ID NOW (test code = 22468-3) Not Detected Not Detected DARWIN (test code = DARWIN) ID NOW COVID-19 As say is an isothermal nucleic acid amplification test intended for the qualitative detection of nucleic acid from SARS-CoV-2 viral RNA in nasopharyngeal (REPAIRER FINISHED METAL) specimens. It is used under Emergency Use [...] clinically indicated. Lab Interpretation (test code = 10111-0) Normal [facility] Metabolic Panel (NA, K, CL, CO2, GLUCOSE, BUN, CREATININE, CA)2020-08-11 02:13:00* Test Item Value Reference Range Interpretation Comme nts NA (test code = 3109976587) 137 mmol/L 135-145 K (test code = 5441309695) 4.0 mmol/L 3.5-5 CL (test code = 1535594989) 107 mmol/L 98-108 CO2 TOTAL (test code = 8046525738) 19 mmol/L 23-31 L AGAP (test code = 2798177789) 2-16 BUN (test code = 7900510409) 10 mg/dL 7-23 GLUCOSE (test code = 2013209482) 106 mg/dL 70-110 CREATININE (test code = 3009083653) 0.47 mg/dL 0.5-1.04 L CALCIUM (test code = 1114702625) 9.2 mg/dL 8.6-10.6 eGFR Calculation (Non-) (test code = 4350736846) mL/min/1.73m2 eGFR Calculation () (test code = 2564043736) mL/min/1.73m2 DARWIN (test code = DARWIN) Association [...] imaging tests). Lab Interpretation (test code = 07275-9) [facility]normal [facility] (ALB, T.PRO, BILI T, BU/BC, ALT, AST, ALK PHOS)2020-08-11 02:13:00* Test Item Value Reference Range Interpretation Comme nts TOTAL BILI (test code = 8460539449) 0.4 mg/dL 0.1-1.1 BILI UNCON (test code = 8122569143) 0.3 mg/dL 0.1-1.1 BILI CONJ (test code = 8036427006) 0.0 mg/dL 0-0.3 T PROTEIN (test code = 3048163566) 7.5 g/dL 6.3-8.2 ALBUMIN (test code = 4933582532) 4.4 g/dL 3.5-5 ALK PHOS (test code = 2847414617) 48 U/L 34-122 ALTv (test code = 1742-6) 12 U/L 5-35 AST(SGOT) (test code = 9547508812) 22 U/L 13-40 Lab Interpretation (test cod e = 85324-9) Normal [facility] HospitalLipase Wlhzu8076-91-96 02:13:00* Test Item Value Reference Range Interpretation Comme nts LIPASE (test code = 5737856603) 78 U/L 0-220 Lab Interpretation (test cod e = 23327-1) Normal [facility] HospitalLactic Acid Whole Lmtsh9688-94-96 02:05:00* Test Item Value Reference Range Interpretation Comme nts LACTIC ACID (test code = 7232084297) 1.47 mmol/L 0.5-2.2 Lab Interpretation (test cod e = 32552-9) [facility] FOREARM 2 VW NERC2728-29-91 14:31:40No acute bony abnormality. Soft tissue swelling. [...] of the elbow.Preliminary Report Dictated by Resident: Mikcey Torres MD., have reviewed this study and agree with the abovereport.[facility] (ID NOW RAPID TESTING)2020-08-07 14:18:00* Test Item Value Reference Range Interpretation Comme nts SARS-CoV-2 Rapid ID NOW (test code = 41915-4) Not Detected Not Detected DARWIN (test code = DARWIN) ID NOW COVID-19 As say is an isothermal nucleic acid amplification test intended for the qualitative detection of nucleic acid from SARS-CoV-2 viral RNA in nasopharyngeal (REPAIRER FINISHED METAL) specimens. It is used under Emergency Use [...] clinically indicated. Lab Interpretation (test code = 20682-3) Normal [facility] HospitalTROPONIN [id number] 02:54:00* Test Item Value Reference Range Interpretation Comme nts TROPONIN I (test code = 0539866028) <0.012 See_Comment [Automated message] The system which [...] biotin. ? Lab Interpretation (test code = 11777-3) Normal [facility] HospitalLIPASE2020-12-25 02:37:00* Test Item Value Reference Range Interpretation Comme nts LIPASE (test code = 3642831998) 76 U/L 0-220 Lab Interpretation (test cod e = 99978-4) Normal [facility] HospitalURINALYSIS2020-12-25 01:54:00* Test Item Value Reference Range Interpretation Comme nts APPEARANCE (test code = 7345067513) Clear Clear COLOR (test code = 4411180440) Straw Yellow A PH (test code = 1535046680) 4.8-8.0 SP GRAVITY (test code = 8803692334) 1.003-1.030 GLU U QUAL (test code = 8552692603) Normal Normal BLOOD (test code = 8424422673) 3+ Negative A KETONES (test code = 9418710947) Negative Negative PROTEIN (test code = 2887-8) Negative Negative UROBILIN (test code = 2992791847) Normal Normal BILIRUBIN (test code = 9106395139) Negative Negative NITRITE (test code = 0372196278) Negative Negative LEUK MARC (test code = 8552787761) Negative Negative RBC/HPF (test code = 8317318528) See_Comment [Automated [employer] ge] The system which generated this result transmitted reference range: 0 - 3 HPF. The reference range was not used to interpret this result as normal/abnormal. WBC/HPF (test code = 2527131868) <1 See_Comment [Automated [employer] ge] The system which generated this result transmitted reference range: 0 - 5 HPF. The reference range was not used to interpret this result as normal/abnormal. BACTERIA (test code = 3523760474) Few Negative A MUCOUS (test code = 1998626522) Slight Negative LPF A SQ EPITH (test code = 6609474524) HPF Lab Interpretation (test code = 22485-7) Abnormal [facility] WITH [id number] 00:57:00* Test Item Value Reference Range Interpretation Comme nts WBC (test code = 6690-2) See_Comment [Automated [employer] ge] The system which generated this result transmitted reference range: 4.30 - 11.10 10*3/?L. The reference range was not used to interpret this result as normal/abnormal. RBC (test code = 789-8) See_Comment [Automated [employer] ge] The system which generated this result [...] 34.0 g/dL 31.6-35.1 RDW-SD (test code = 07794-5) 41.7 fL 39-49.9 RDW-CV (test code = 788-0) 13.2 % 12-15.5 PLT (test code = 777-3) See_Comment [Automated messa ge] The system which generated this result transmitted reference range: 166 - 358 10*3/?L. The reference range was not used to interpret this result as normal/abnormal. MPV (test code = 37514-7) 9.4 fL 9.5-12.9 L NRBC/100 WBC (test code = 8110201450) See_Comment [Automated [employer] ssage] The system which generated this result transmitted reference range: 0.0 - 10.0 /100 WBCs. The reference range was not used to interpret this result as normal/abnormal. NRBC x10^3 (test code = 9033189409) <0.01 See_Comment [Automated messa ge] The system which generated this result transmitted reference range: 10*3/?L. The reference range was not used to interpret this result as normal/abnormal. GRAN MAT (NEUT) % (test code = 770-8) 51.8 % IMM GRAN % (test code = 3422294858) 0.50 % LYMPH % (test code = 736-9) 40.7 % MONO % (test code = 5905-5) 4.0 % EOS % (test code = 713-8) 2.5 % BASO % (test code = 706-2) 0.5 % GRAN MAT x10^3(ANC) (test code = 6589352107) 5.38 10*3/uL 1.88-7.09 IMM GRAN x10^3 (test code = 4812298364) 0.05 10*3/uL 0-0.06 LYMPH x10^3 (test code = 731-0) 4.22 10*3/uL 1.32-3.29 H MONO x10^3 (test code = 742-7) 0.42 10*3/uL 0.33-0.92 EOS x10^3 (test code = 711-2) 0.26 10*3/uL 0.03-0.39 BASO x10^3 (test code = 704-7) 0.05 10*3/uL 0.01-0.07 Lab Interpretation (test code = 32344-0) [facility]normal [facility] HospitalADC,CLC OR L[facility] ONLY - INFLUENZA A & B DIRECT [id number] 00:51:00* Test Item Value Reference Range Interpretation Comme nts Influenza A (test code = 24138-2) Negative Negative Influenza B (test code = 62328-3) Negative Negative Lab Interpretation (test cod e = 08665-0) Normal [facility] HospitalPOCT CTBS1782-99-20 00:51:00* Test Item Value Reference Range Interpretation Comme nts POCT PREG (test code = 1605) negative On board controls acceptable with C Line (test code = 3574) present POCT PREG LOT # (test code = 3575) [id number] POCT PREG TEST DATE ( test code = 3576) 11/04/2021 Lab Interpretation (test cod e = 80902-0) Normal [facility] HospitalTROPONIN R0838-93-90 00:46:00* Test Item Value Reference Range Interpretation Comme nts TROPONIN I (test code = 0566298475) <0.012 See_Comment [Automated message] The system which [...] biotin. ? Lab Interpretation (test code = 53503-6) Normal [facility] METABOLIC PANEL (NA, K, CL, CO2, GLUCOSE, BUN, CREATININE, CA)2020-07-01 00:46:00* Test Item Value Reference Range Interpretation Comme nts NA (test code = 7376997574) 141 mmol/L 135-145 K (test code = 3318165816) 3.8 mmol/L 3.5-5 CL (test code = 1058900350) 108 mmol/L 98-108 CO2 TOTAL (test code = 4588775413) 25 mmol/L 23-31 AGAP (test code = 4194431606) 2-16 BUN (test code = 9047150223) 10 mg/dL 7-23 GLUCOSE (test code = 0045726123) 92 mg/dL 70-110 CREATININE (test code = 9262242451) 0.58 mg/dL 0.5-1.04 CALCIUM (test code = 7318688277) 9.4 mg/dL 8.6-10.6 eGFR Calculation (Non-) (test code = 1843146593) mL/min/1.73m2 eGFR Calculation () (test code = 5852047617) mL/min/1.73m2 DARWIN (test code = DARWIN) Association [...] or urine or abnormalities in imaging tests). [facility]-TERMINAL URG-AII8348-11-25 00:43:00* Test Item Value Reference Range Interpretation Comme nts NT-proBNP (test code = 9608370630) 332 pg/mL See_Comment H [Automated message] The system which generated this result transmitted reference range: <=125. The reference range was not used to interpret this result as normal/abnormal. DARWIN (test code = DARWIN) Biotin has been reported to cause a negative bias, interpret results relative to patient's use of biotin. Lab Interpretation (test code = 08484-2) [facility] 1 [id number] 00:20:50No acute cardiopulmonary abnormality Preliminary Report Dictated [...] reviewed this study and agree with the abovereport.[facility] CERVICAL SPINE WO FRKBEZPR5464-25-35 23:23:[address] EXAMINATION: CT [...] lung apices are unremarkable. IMPRESSIONUnremarkable cervical spine CT.[facility] HospitalPONV Suaa3392-96-29 01:50:00* Test Item Value Reference Range Interpretation Comme nts POCT PREG (test code = 1605) Negative On board controls acceptable with C Line (test code = 3574) Present POCT PREG LOT # (test code = 3575) [id number] POCT PREG TEST DATE ( test code = 3576) 10/05/2021 Lab Interpretation (test cod e = 17356-9) Normal [facility] HospitalTroponin [id number] 01:24:00* Test Item Value Reference Range Interpretation Comme nts TROPONIN I (test code = 6852921028) <0.012 See_Comment [Automated message] The system which [...] biotin. ? Lab Interpretation (test code = 30237-9) [facility]COVID[facility] (ID NOW RAPID TESTING)2020-06-13 01:22:00* Test Item Value Reference Range Interpretation Comme nts SARS-CoV-2 Rapid ID NOW (test code = 81411-2) Not Detected Not Detected DARWIN (test code = DARWIN) ID NOW COVID-19 As say is an isothermal nucleic acid amplification test intended for the qualitative detection of nucleic acid from SARS-CoV-2 viral RNA in nasopharyngeal (REPAIRER FINISHED METAL) specimens. It is used under Emergency Use [...] clinically indicated. Lab Interpretation (test code = 54516-2) Normal [facility]FXBGH9219-93-32 01:16:00* Test Item Value Reference Range Interpretation Comments D-DIMER (test code = 8351357748) See_Comment [Automated message] The system which generated [...] a diagnosis. Lab Interpretation (test code = 86269-4) [facility] (NA, K, CL, CO2, GLUCOSE, BUN, CREATININE, CA)2020-06-13 01:13:00* Test Item Value Reference Range Interpretation Comme nts NA (test code = 0832161629) 137 mmol/L 135-145 K (test code = 5596769465) 4.2 mmol/L 3.5-5 CL (test code = 4433174751) 103 mmol/L 98-108 CO2 TOTAL (test code = 4786503120) 25 mmol/L 23-31 AGAP (test code = 8839259930) 2-16 BUN (test code = 6630337079) 11 mg/dL 7-23 GLUCOSE (test code = 6366802767) 98 mg/dL 70-110 CREATININE (test code = 4312944581) 0.52 mg/dL 0.5-1.04 CALCIUM (test code = 5710170160) 10.3 mg/dL 8.6-10.6 eGFR Calculation (Non-) (test code = 1717685984) mL/min/1.73m2 eGFR Calculation () (test code = 0921093477) mL/min/1.73m2 DARWIN (test code = DARWIN) Association [...] or urine or abnormalities in imaging tests). [facility] Hospital[facility] Function Panel (ALB, T.PRO, BILI T, BU/BC, ALT, AST, ALK PHOS)2020-06-13 01:13:00* Test Item Value Reference Range Interpretation Comme nts TOTAL BILI (test code = 3893126006) 0.5 mg/dL 0.1-1.1 BILI UNCON (test code = 3682219538) 0.3 mg/dL 0.1-1.1 BILI CONJ (test code = 4548528352) 0.0 mg/dL 0-0.3 T PROTEIN (test code = 6985205460) 7.3 g/dL 6.3-8.2 ALBUMIN (test code = 2148917321) 4.2 g/dL 3.5-5 ALK PHOS (test code = 5740718731) 85 U/L 34-122 ALTv (test code = 1742-6) 66 U/L 5-35 H AST(SGOT) (test code = 0299855583) 32 U/L 13-40 Lab Interpretation (test cod e = 08101-2) Abnormal [facility] HospitalLipase Csddw4174-57-55 01:13:00* Test Item Value Reference Range Interpretation Comme nts LIPASE (test code = 5793856683) 60 U/L 0-220 Lab Interpretation (test cod e = 48512-7) Normal [facility] HospitalUrinalysis2020-12-07 01:03:00* Test Item Value Reference Range Interpretation Comme nts APPEARANCE (test code = 1564858154) Clear Clear COLOR (test code = 2053751115) Straw Yellow A PH (test code = 9504275048) 4.8-8.0 SP GRAVITY (test code = 0751609712) 1.003-1.030 GLU U QUAL (test code = 7103992984) Normal Normal BLOOD (test code = 3033550681) Negative Negative KETONES (test code = 0839640082) Negative Negative PROTEIN (test code = 2887-8) Negative Negative UROBILIN (test code = 1048423539) Normal Normal BILIRUBIN (test code = 0001236084) Negative Negative NITRITE (test code = 8113987590) Negative Negative LEUK MARC (test code = 8652033907) Negative Negative RBC/HPF (test code = 0786269128) See_Comment [Automated messa ge] The system which generated this result transmitted reference range: 0 - 3 HPF. The reference range was not used to interpret this result as normal/abnormal. WBC/HPF (test code = 0767604109) See_Comment [Automated messa ge] The system which generated this result transmitted reference range: 0 - 5 HPF. The reference range was not used to interpret this result as normal/abnormal. BACTERIA (test code = 9994541899) Negative Negative MUCOUS (test code = 6336655239) Slight Negative LPF A SQ EPITH (test code = 0770926261) HPF Lab Interpretation (test code = 35174-1) Abnormal [facility] HospitalCBC with Wmrtnqhgoqfp3848-56-04 00:55:00* Test Item Value Reference Range Interpretation [...] 34.5 g/dL 31.6-35.1 RDW-SD (test code = 60940-8) 42.5 fL 39-49.9 RDW-CV (test code = 788-0) 13.5 % 12-15.5 PLT (test code = 777-3) See_Comment [Automated [employer]] The system which generated this result transmitted reference range: 166 - 358 10*3/?L. The reference range was not used to interpret this result as normal/abnormal. MPV (test code = 63575-4) 10.1 fL 9.5-12.9 NRBC/100 WBC (test code = 5368618493) See_Comment [Automated [employer] ssage] The system which generated this result transmitted reference range: 0.0 - 10.0 /100 WBCs. The reference range was not used to interpret this result as normal/abnormal. NRBC x10^3 (test code = 3997888631) <0.01 See_Comment [Automated messa ge] The system which generated this result transmitted reference range: 10*3/?L. The reference range was not used to interpret this result as normal/abnormal. GRAN MAT (NEUT) % (test code = 770-8) 61.9 % IMM GRAN % (test code = 9906425100) 0.60 % LYMPH % (test code = 736-9) 30.6 % MONO % (test code = 5905-5) 5.2 % EOS % (test code = 713-8) 1.4 % BASO % (test code = 706-2) 0.3 % GRAN MAT x10^3(ANC) (test code = 5544483229) 8.03 10*3/uL 1.88-7.09 H IMM GRAN x10^3 (test code = 1378818938) 0.08 10*3/uL 0-0.06 H LYMPH x10^3 (test code = 731-0) 3.97 10*3/uL 1.32-3.29 H MONO x10^3 (test code = 742-7) 0.68 10*3/uL 0.33-0.92 EOS x10^3 (test code = 711-2) 0.18 10*3/uL 0.03-0.39 BASO x10^3 (test code = 704-7) 0.04 10*3/uL 0.01-0.07 Lab Interpretation (test code = 54140-9) [facility]COVID[facility] (ID NOW RAPID TESTING)2020-05-17 00:27:00* Test Item Value Reference Range Interpretation Comme nts SARS-CoV-2 Rapid ID NOW (test code = 25596-6) Not Detected Not Detected DARWIN (test code = DARWIN) ID NOW COVID-19 As say is an isothermal nucleic acid amplification test intended for the qualitative detection of nucleic acid from SARS-CoV-2 viral RNA in nasopharyngeal (REPAIRER FINISHED METAL) specimens. It is used under Emergency Use [...] clinically indicated. Lab Interpretation (test code = 73062-7) Normal [facility] Metabolic Panel (NA, K, CL, CO2, GLUCOSE, BUN, CREATININE, CA)2020-05-17 00:00:00* Test Item Value Reference Range Interpretation Comme nts NA (test code = 7636665681) 136 mmol/L 135-145 K (test code = 4365360493) 3.6 mmol/L 3.5-5 CL (test code = 6905930667) 103 mmol/L 98-108 CO2 TOTAL (test code = 2338925757) 26 mmol/L 23-31 AGAP (test code = 6462660942) 2-16 BUN (test code = 1820725866) 13 mg/dL 7-23 GLUCOSE (test code = 6067982520) 130 mg/dL 70-110 H CREATININE (test code = 8290495264) 0.58 mg/dL 0.5-1.04 CALCIUM (test code = 7088517250) 9.9 mg/dL 8.6-10.6 eGFR Calculation (Non-) (test code = 8765323932) mL/min/1.73m2 eGFR Calculation () (test code = 6005367661) mL/min/1.73m2 DARWIN (test code = DARWIN) Association [...] imaging tests). Lab Interpretation (test code = 13746-9) [facility] (ALB, T.PRO, BILI T, BU/BC, ALT, AST, ALK PHOS)2020-05-17 00:00:00* Test Item Value Reference Range Interpretation Comme nts TOTAL BILI (test code = 6729745987) 0.4 mg/dL 0.1-1.1 BILI UNCON (test code = 5540521920) 0.3 mg/dL 0.1-1.1 BILI CONJ (test code = 7718706908) 0.0 mg/dL 0-0.3 T PROTEIN (test code = 8789546486) 7.3 g/dL 6.3-8.2 ALBUMIN (test code = 7227834943) 4.3 g/dL 3.5-5 ALK PHOS (test code = 9421058762) 118 U/L 34-122 ALTv (test code = 1742-6) 119 U/L 5-35 H AST(SGOT) (test code = 4185138762) 47 U/L 13-40 H Lab Interpretation (test cod e = 83017-2) Abnormal [facility] HospitalLipase Nzjda2334-86-15 00:00:00* Test Item Value Reference Range Interpretation Comme nts LIPASE (test code = 1199039281) 70 U/L 0-220 Lab Interpretation (test cod e = 48403-6) [facility] HospitalCBC with Bgorflutfeov0232-31-85 23:49:00* Test Item Value Reference Range Interpretation Comme nts WBC (test code = 6690-2) See_Comment [Automated [employer]] The system which generated this result transmitted reference range: 4.30 - 11.10 10*3/?L. The reference range was not used to interpret this result as normal/abnormal. RBC (test code = 789-8) See_Comment [Automated [employer]] The system which generated this result [...] 33.3 g/dL 31.6-35.1 RDW-SD (test code = 73147-0) 42.8 fL 39-49.9 RDW-CV (test code = 788-0) 13.5 % 12-15.5 PLT (test code = 777-3) See_Comment [Automated messa ge] The system which generated this result transmitted reference range: 166 - 358 10*3/?L. The reference range was not used to interpret this result as normal/abnormal. MPV (test code = 76452-5) 9.8 fL 9.5-12.9 NRBC/100 WBC (test code = 2099855152) See_Comment [Automated me ssage] The system which generated this result transmitted reference range: 0.0 - 10.0 /100 WBCs. The reference range was not used to interpret this result as normal/abnormal. NRBC x10^3 (test code = 5448166301) <0.01 See_Comment [Automated me ssage] The system which generated this result transmitted reference range: 10*3/?L. The reference range was not used to interpret this result as normal/abnormal. GRAN MAT (NEUT) % (test code = 770-8) 62.5 % IMM GRAN % (test code = 0137848204) 0.50 % LYMPH % (test code = 736-9) 29.8 % MONO % (test code = 5905-5) 5.6 % EOS % (test code = 713-8) 1.1 % BASO % (test code = 706-2) 0.5 % GRAN MAT x10^3(ANC) (test code = 3318161665) 6.65 10*3/uL 1.88-7.09 IMM GRAN x10^3 (test code = 8922317783) 0.05 10*3/uL 0-0.06 LYMPH x10^3 (test code = 731-0) 3.17 10*3/uL 1.32-3.29 MONO x10^3 (test code = 742-7) 0.59 10*3/uL 0.33-0.92 EOS x10^3 (test code = 711-2) 0.12 10*3/uL 0.03-0.39 BASO x10^3 (test code = 704-7) 0.05 10*3/uL 0.01-0.07 [facility] 08:24:00* Test Item Value Reference Range Interpretation Comme nts ACETAMINOP (test code = 6011374200) 21.0 ug/mL 10-30 DARWIN (test code = DARWIN) Toxic: Greater joan n 200 ug/mL @ 4 hour post ingestion or greater than 50 ug/mL @ 12 hour post ingestion Lab Interpretation (test code = 23411-7) Normal [facility]2020-[facility] 06:37:00* Test Item Value Reference Range Interpretation Comme nts ALCOHOL (test code = 6879054265) <10 mg/dL DARWIN (test code = DARWIN) <10 [id number] Toxic>100 Depression of HOTEL CLERK>400 Fatalities Reported [facility] Metabolic Panel (NA, K, CL, CO2, GLUCOSE, BUN, CREATININE, CA)2020-05-15 06:35:00* Test Item Value Reference Range Interpretation Comme nts NA (test code = 6953282507) 137 mmol/L 135-145 K (test code = 9720756579) 4.0 mmol/L 3.5-5 CL (test code = 5480918290) 106 mmol/L 98-108 CO2 TOTAL (test code = 4237447961) 25 mmol/L 23-31 AGAP (test code = 2356698764) 2-16 BUN (test code = 6402418981) 9 mg/dL 7-23 GLUCOSE (test code = 0577052580) 95 mg/dL 70-110 CREATININE (test code = 0748283073) 0.53 mg/dL 0.5-1.04 CALCIUM (test code = 5324861729) 9.0 mg/dL 8.6-10.6 eGFR Calculation (Non-) (test code = 7556782167) mL/min/1.73m2 eGFR Calculation () (test code = 4964707069) mL/min/1.73m2 DARWIN (test code = DARWIN) Association [...] or urine or abnormalities in imaging tests). [facility] (ALB, T.PRO, BILI T, BU/BC, ALT, AST, ALK PHOS)2020-05-15 06:35:00* Test Item Value Reference Range Interpretation Comme nts TOTAL BILI (test code = 7569976061) 0.4 mg/dL 0.1-1.1 BILI UNCON (test code = 7528800021) 0.2 mg/dL 0.1-1.1 BILI CONJ (test code = 4993594677) 0.0 mg/dL 0-0.3 T PROTEIN (test code = 4492084079) 6.3 g/dL 6.3-8.2 ALBUMIN (test code = 6108778483) 3.8 g/dL 3.5-5 ALK PHOS (test code = 4530611783) 117 U/L 34-122 ALTv (test code = 1742-6) 179 U/L 5-35 H AST(SGOT) (test code = 9967944266) 194 U/L 13-40 H Lab Interpretation (test cod e = 46347-9) Abnormal [facility] HospitalLipase [id number] 06:35:00* Test Item Value Reference Range Interpretation Comme [facility] LIPASE (test code = 2146254997) 92 U/L 0-220 Lab Interpretation (test cod e = 90132-6) Normal [facility] HospitalaPTT2020-11-08 06:22:00* Test Item Value Reference Range Interpretation Comme nts APTT Patient (test code = 3173-2) See_Comment [Automated message] The system which generated this result transmitted reference range: 23 - 38 Seconds. The reference range was not used to interpret this result as normal/abnormal. DARWIN (test code = DARWIN) The [facility] patient population mean normal value for aPTT is 30 seconds. Lab Interpretation (test code = 28667-8) Normal [facility] HospitalUrinalysis2020-11-08 06:21:00* Test Item Value Reference Range Interpretation Comme nts APPEARANCE (test code = 2633365528) Clear Clear COLOR (test code = 4050088335) Yellow Yellow PH (test code = 0535443625) 4.8-8.0 SP GRAVITY (test code = 9562261551) 1.003-1.030 GLU U QUAL (test code = 6523307668) Normal Normal BLOOD (test code = 3116162994) Negative Negative KETONES (test code = 0431289853) Negative Negative PROTEIN (test code = 2887-8) Negative Negative UROBILIN (test code = 4176907701) Normal Normal BILIRUBIN (test code = 6287205757) Negative Negative NITRITE (test code = 5063747287) Negative Negative LEUK MARC (test code = 3596851073) Negative Negative RBC/HPF (test code = 5460318194) See_Comment [Automated [employer]] The system which generated this result transmitted reference range: 0 - 3 HPF. The reference range was not used to interpret this result as normal/abnormal. WBC/HPF (test code = 5263700839) <1 See_Comment [Automated [employer]] The system which generated this result transmitted reference range: 0 - 5 HPF. The reference range was not used to interpret this result as normal/abnormal. BACTERIA (test code = 9300403199) Negative Negative MUCOUS (test code = 1288339990) Slight Negative LPF A SQ EPITH (test code = 4261752437) HPF Lab Interpretation (test code = 22599-8) Abnormal [facility] HospitalProthrombin Time (PT) / [id number] 06:20:00 * Test Item Value Reference Range Interpretation Comme nts PROTIME PATIENT (test code = 5964-2) See_Comment [Automated [employer]] The system which generated this result transmitted reference range: 12.0 - 14.7 Seconds. The reference range was not used to interpret this result as normal/abnormal. INR (test code = 6301-6) Normal INR <1.1; Warfarin Therapeutic range 2.0 to 3.0 or 2.5 to 3.5, depending upon the indications. Lab Interpretation (test code = 55591-6) Normal [facility] / [facility] - DR[facility] S[facility] [id number] 06:19:00* Test Item Value Reference Range Interpretation Comme nts BENZO U (test code = 9978876122) Presumptive Positive Negative A ROSA U (test code = 6551347475) Negative Negative AMPHET (test code = 2208022317) Negative Negative THC (test code = 7485456780) Negative Negative METHADONE (test code = 8086207311) Negative Negative Meth U (test code = 5342253057) Negative Negative OPIATES (test code = 3382503122) Negative Negative Cocaine Metabolite (test code = 4646680963) Negative Negative PROPOXY (test code = 7322226043) Negative Negative Tric U (test code = 3407470912) Negative Negative PCP (test code = 0235262620) Negative Negative OXYCOD (test code = 3918291303) Negative Negative ADRWIN (test code = DARWIN) Urine Drug Cutoff [...] legal testing). Lab Interpretation (test code = 88129-6) Abnormal [facility] with [id number] 06:07:00* Test Item Value Reference Range Interpretation Comme nts WBC (test code = 6690-2) See_Comment [Automated [employer]] The system which generated this result transmitted reference range: 4.30 - 11.10 10*3/?L. The reference range was not used to interpret this result as normal/abnormal. RBC (test code = 789-8) See_Comment [Automated [employer]] The system which generated this result transmitted [...] 34.3 g/dL 31.6-35.1 RDW-SD (test code = 18490-4) 43.4 fL 39-49.9 RDW-CV (test code = 788-0) 13.7 % 12-15.5 PLT (test code = 777-3) See_Comment [Automated [employer]] The system which generated this result transmitted reference range: 166 - 358 10*3/?L. The reference range was not used to interpret this result as normal/abnormal. MPV (test code = 16265-7) 9.7 fL 9.5-12.9 NRBC/100 WBC (test code = 5472522591) See_Comment [Automated me ssage] The system which generated this result transmitted reference range: 0.0 - 10.0 /100 WBCs. The reference range was not used to interpret this result as normal/abnormal. NRBC x10^3 (test code = 6681658077) <0.01 See_Comment [Automated messa ge] The system which generated this result transmitted reference range: 10*3/?L. The reference range was not used to interpret this result as normal/abnormal. GRAN MAT (NEUT) % (test code = 770-8) 50.6 % IMM GRAN % (test code = 3354577373) 0.20 % LYMPH % (test code = 736-9) 42.1 % MONO % (test code = 5905-5) 5.5 % EOS % (test code = 713-8) 1.2 % BASO % (test code = 706-2) 0.4 % GRAN MAT x10^3(ANC) (test code = 0141474983) 4.31 10*3/uL 1.88-7.09 IMM GRAN x10^3 (test code = 6368413893) <0.03 0-0.06 LYMPH x10^3 (test code = 731-0) 3.58 10*3/uL 1.32-3.29 H MONO x10^3 (test code = 742-7) 0.47 10*3/uL 0.33-0.92 EOS x10^3 (test code = 711-2) 0.10 10*3/uL 0.03-0.39 BASO x10^3 (test code = 704-7) 0.03 10*3/uL 0.01-0.07 Lab Interpretation (test code = 46616-3) Abnormal [facility] [id number] 05:53:00* Test Item Value Reference Range Interpretation Comme nts POCT PREG (test code = 1605) Negative On board controls acceptable with C Line (test code = 3574) Present POCT PREG LOT # (test code = 3575) [facility] [id number] POCT PREG TEST DATE ( test code = 3576) 10/05/2021 Lab Interpretation (test cod e = 38965-2) Normal [facility] History and Physical Notes Date/Time Note Provider Source 2023-02-16 01:18:50 Formatting of this n ote is different from the original. Medicine History & Physical Date of Service: 02/16/2023 Pt presents from: home CC: abd pain History of Present Illness: Charity Roca is a 42 year old female [...] 2003 cholecystectomy. ROS: 2 days of chest pain Review of Hx/Meds: No current facility-administered medications on file prior to [...] evening. I have reviewed the patient's home medications PMH: Past Medical History: Diagnosis Date Anxiety Hypertension [...] 100 mL/hr at 02/15/237, 1,000 mL at 02/15/237 morpHINE (2 mg/mL) injection 2 mg, 2 mg, Slow IV Push, Q4HPRN, Flako Mercado MD, 2 mg at 02/15/23 224 traMADoL (ULTRAM) tablet 50 mg, 50 mg, Oral, Q8HPRN, Flako Mercado MD Objective: Vitals: Vitals: 02/15/23 19102/15/23200802/15/23201502/15/232018 BP: 105/67 122/70 Pulse: 72 66 Resp: 18 Temp: 36.1 ?C (96.9 ?F) TempSrc: SpO2: 95% 98% Weight: 99 kg (218 lb 3.2 oz) 99 kg (218 lb 3.2 oz) 99 kg (218 lb 3.2 oz) Height: 1.575 m (5' 2") 1.575 m (5' 2") 1.575 m (5' 2") I/O's: Intake/Output Summary (Last 24 hours) at 02/16/2023 011 Last data filed at 02/15/20232008 Gross per 24 hour Intake 0 ml Output -- Net 0 ml Physical Exam: Constitutional: A&O x3, well-developed, well-nourished, and in no distress. Head: Normocephalic and atraumatic. Eyes: PERRL. Conjunctivae and EOM are normal. Neck: Normal range of motion. Neck supple. No JVD present. Cardiovascular: Normal rate, regular rhythm, normal heart sounds [...] No rash noted. No erythema. No pallor. Labs: BMP:BMP NA Date Value 02/15/2023 138 mmol/L 01/09/2022 [...] 09/11/2021 19 mmol/L (L) 07/23/2004 24 MMOL/L CBC:CBC WBC x10^3 (/CMM) Date Value 07/23/2004 11.4 (H) WBC (10*3/?L) Date Value 02/15/2023 12.24 (H) RBC x10^6 (/CMM) Date Value 07/23/2004 5.22 (H) RBC (10*6/?L) Date Value 02/15/2023 5.37 (H) PLT x10^3 (/CMM) Date Value 07/23/2004 301 PLT (10*3/?L) Date Value 02/15/2023 331 HGB Date Value 02/15/2023 15.0 g/dL 07/23/2004 14.9 G/DL HCT (%) Date Value 02/15/2023 43.3 07/23/2004 43.1 BMP:Hepatic Function Panel ALBUMIN Date Value 02/15/2023 4.0 g/dL 07/23/2004 4.3 [...] 1 year. I have reviewed all relevant labs Imaging: CT ABDOMEN PELVIS W CONTRAST Result Date: 02/15/2023 CT ABDOMEN PELVIS W CONTRAST Indication: Pancreatitis, [...] the ACR Incidental Findings Committee;Journal of the [employer] Volume 7, Issue 10, Pages [phone], April 2010). CHEST 1 VW Result Date: 02/15/2023 ORDERING PHYSICIAN: LEEANNE WISE HISTORY: chest pain . TECHNIQUE: A portable upright AP view chest x-ray. COMPARISON: The chest x-ray from November 11, 2021. FINDINGS: No focal infiltrate, pleural effusion, or pneumothorax is identified. The cardiomediastinal silhouette and central vessels appear unremarkable. No acute bony abnormality is identified. 1. No acute process is identified in the chest. RL: 7727 END OF REPORT Assessment and plan: Principal Problem: Chest pain, unspecified type Charity Roca is a 42 year old female with a PMH of PTSD, anxiety who presented to the ED for abdominal pain. Found to have acute pancreatitis. Pancreatitis, Acute Consider drug induced, patient Is on a couple of home meds (topamax, bupropion) which have been associated. S/p cholecystectomy. Afebrile. CT abdomen neg for any major pathology. Lipase 2048 -pain control w PRN tylenol/tramadol/morphine -continue maintenance IVF Anxiety PTSD Mental disorder, NOS Patient is on a wide range of medications . -resumed xanax BID, but made PRN. Hold home PRN vistaril -wellbutrin 150 daily -lexapro 10qHS, substitute per hospital formulary -melatonin 10qHS, trazodone 400mg qHS (verified by nursing) -hold topamax -zyprexa 15mg qHS DVT prophylaxis: lovenox Advanced Care Planning ( Z71.89 ) Above assessment and plan discussed at length with patient, patient expressed full understanding. Questions and concerns addressed I spent 18 minutes discussing the advance care planning. Advanced Directive Maker: self Level of comfort: N/A Code Status: full Tobacco user (Z71.6) Patient counseled at length and Pt expressed full understanding, Time discussed 3 minutes Disposition: admit to inpt Signed: Flako Mercado MD 02/16/2023 IM-INTERNAL MEDICINE STAFF [facility] Notes Date/Time Note Provider Source 2024-02-06 11:11:13 Chief Complaint Patient presents with Shoulder Pain Left shoulder pain with limited range of motion x 6 months, takes OTC tylenol for the pain as needed but pain is getting worse. 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 Not working currently [facility] 2023-12-13 09:19:27 Chief Complaint Patient presents with Hospital F/U [facility] follow up with admission on 12/04/2023 for chest pains. She had a stent placed by Dr. Arthur. Jennifer Del Castillo MA II Jennifer Del Castillo MA, II [facility] 2023-12-03 10:49:31 Chief Complaint Patient presents with Anxiety Follow up on anxiety/depression. She states that it has gotten worse since last visit. She had an appointment with January this morning and it was canceled due to internet outage. Jennifer Del Castillo MA II Jennifer Del Castillo MA, II [facility] 2023-10-29 13:21:02 Chief Complaint Patient presents with New Patient [facility] told her she needed to go to a different doctor because they could not give her anything else Marbella Oh LVN [facility] 2023-10-11 00:41:45 Pt given printed and verbal discharge instructions regarding dysuria, & abd pain, encouraged hydration. Prescriptions provided. Discussed tramadol side affects and to avoid driving/operating machinery/or engaging in activities requiring alertness while taking. Pt verbalized understanding of instructions, pt awake alert oriented, resp reg unlabored, skin w/d, color appropriate for race, moves all ext well,pt encouraged to follow up with pcp. Advised to seek medical attention for new/prolonged/worsening of symptoms. No adverse reaction to meds given in ER noted upon discharge. PIV d'cd, dressing to site, catheter in tact. Awake, alert oriented, resp reg unlabored, skin w/d, pt leaving amb with steady gait, accompanied by parent, & in no apparent distress. Becky Rios RN [facility] 2023-10-10 21:25:46 Pt arrived ambulatory but states feeling like she is going to pass out, Pt placed in ED wheelchair. Pt c/o " I have pain in my back on the left side, it mark when I pee, Im nauseous, I feel like Im going to pass out and I have been crapping on myself." Shaneka Atkinson RN [facility] 2023-07-01 22:58:41 Pt discharged with diagnosis of RUQ abd pain and chronic abd pain. Printed and verbal instructions reviewed with and given to pt. Prescriptions given x 2. Pt verbalized understanding of teaching, medications, and recommended follow-up. Denies questions or concerns at this time. Pt ambulatory at discharge. Appears in no apparent distress. No ataxia noted. STANT TECHNICIAN Adeline Floyd RN [facility] 2023-07-01 19:46:03 Pt states sharp pain to the RLQ that started today around noon, pt denies any urinary symptoms, vomiting X 2 STANT TECHNICIAN Razia Yost RN [facility] 2023-03-10 00:14:00 Formatting of this n ote might be different from the original. Awake, alert oriented X4, respiratory even and unlabored,skin w/d color appropriate for race, moves all ext well, pt encouraged to follow up with pcp and or return as needed Pt given printed and verbal discharge instructions regarding Abdominal pain , patient verbralized understanding and signature obtained, patient denies any other concerns. Prescriptions provided Advised to seek medical attention for new/prolonged/worsening of symptoms, No adverse reaction to meds given in ER noted upon discharge [facility] Razia Yost RN [facility] 2023-03-09 23:06:10 Formatting of this n ote might be different from the original. Received report from Evy RAMIREZ, assuming care. Brandy Lou RN [facility] 2023-03-09 22:38:16 Formatting of this n ote might be different from the original. Ordered CT scan done. Patient states LQ abdominal pain now 01/14. Guanaco Caceres RN [facility] 2023-03-09 22:00:00 Formatting of this n ote might be different from the original. POCT test negative. Patient states RLQ abdominal pain improved briefly with IV Morphine administration, then returned at 03/17. Dr Richards informed, and patient medicated as ordered with Fentanyl 75 mcg slow IVP. T [facility] 2023-03-09 21:00:00 Formatting of this n ote might be different from the original. Medicated as per order with Zofran 4 mg slow IVP and Morphine 4 mg slow IVP for RLQ abdominal pain 03/17. T [facility] 2023-03-09 20:17:52 Formatting of this n ote might be different from the original. Pt arrived ambulatory with complaints of RLQ abd pain since yesterday. Pt reports N/V/D. Last took Tylenol at 3pm. Denies dysuria but reports frequency. Hx: Anxiety, Depression, PTSD, Pancreatitis Aline Lou RN [facility] 2023-03-02 01:30:22 Formatting of this n ote might be different from the original. Discharged home ambulatory. Home instructions given. T John Ventura RN [facility] 2023-03-01 19:32:44 Formatting of this n ote might be different from the original. Pt CO of N/V, left lower back pain, painful urination and diarrhea since yesterday, states she was admitted last week for pancreatitis. Pt already promethazine tablets today with no relief. Jean Carlos Alegria RN [facility] 2023-03-01 19:22:00 Formatting of this n ote is different from the original. 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 Abdominal Pain Pain location: Generalized Pain quality: cramping Pain severity: Moderate Onset quality: Gradual Duration: 2 days Timing: Intermittent Chronicity: New Context: not alcohol use, not awakening from sleep, not diet changes, not eating, not laxative use, not medication withdrawal, not previous surgeries, not recent illness, not recent travel, not retching, not sick contacts, not suspicious food intake and not trauma Relieved by: Nothing Worsened by: Nothing Associated symptoms: diarrhea, nausea and vomiting Associated symptoms: [...] use and no recent hospitalization Past Medical History/Immunizations: Past Medical History: Diagnosis Date Anxiety Hypertension PTSD (post-traumatic stress disorder) of family members. Tetanus received in last 5 years: Yes Allergies: No Known Allergies Past Social History: Tobacco Use Every Day; Types: Cigarettes Smokeless Tobacco: Current user of smokeless tobacco. Comments: In the process of quitting. Now smokes 5 cigarettes/ day from 2 packs per day Past Surgical History: Past Surgical History: Procedure Laterality Date CHOLECYSTECTOMY TONSILLECTOMY [...] Negative. All other systems reviewed and are negative. Endocrine: Endocrine negative Physical Exam: ED Triage Vitals [03/01/231933] Weight 99.8 kg (220 lb) Actual or estimated Actual Height 1.575 m (5' 2") BP (!) 147/101 Pulse 85 Resp 18 Temp 37.3 ?C (99.1 ?F) Temp source Oral SpO2 100 % Measured on Room air Physical Exam Vitals and nursing note reviewed. Constitutional: General: She [...] sounds: Normal heart sounds. No murmur heard. Pulmonary: Effort: Pulmonary effort is normal. No [...] Thought content normal. Judgment: Judgment normal. Radiology: CT ABDOMEN PELVIS W CONTRAST Final Result Ordering [...] adenoma on noncontrast imaging. RL: 460 AFC: 26107 Lab Results: Lab Results CBC WITH DIFF - Abnormal Result [...] POCT PREG TEST DATE COMP. METABOLIC PANEL (65357) NA 139 135 - 145 mmol/L K [...] 40 U/L eGFR 112.9 mL/min/1.73m2 Orders and Treatments: Orders Placed This Encounter Procedures CT ABDOMEN PELVIS W CONTRAST CBC WITH DIFF COMP. METABOLIC PANEL (82958) LIPASE URINALYSIS POCT TEST Orders Placed This Encounter Medications ketorolac (TORADOL) injection 30 mg NaCl 0.9% (NS) IV infusion 1,000 mL ondansetron (ZOFRAN (PF)) injection 4 mg morpHINE (4 mg/mL) injection 4 mg ondansetron (ZOFRAN (PF)) injection 4 mg iopamidol (ISOVUE 370-500 mL) injection 100 mL dicyclomine 20 mg tablet ondansetron (ZOFRAN) 4 mg tablet First Provider Eval: ED Events Date/Time Event User Comments 03/01/232299 Medical Screening Begins OLIVIA GARCIA MD -- 03/01/232299 First Provider Evaluation OLIVIA GARCIA MD -- No notes of EC Admission Criteria type on file. ED COURSE Diagnosis/Impression as of 03/02/23 0122 Generalized abdominal pain Nausea, vomiting and diarrhea Procedures: Procedures MDM: Medical Decision Making Charity Roca is a 43 year old female who presents to the ED with N/V/D X 2 days and diffuse abdominal cramps Problems Addressed: Generalized abdominal pain: acute illness or injury Details: ED evaluation, laboratory and imaging study results as documented in chart Nausea, vomiting and diarrhea: acute illness or injury Details: ED evaluation ad management as documented in chart Amount and/or Complexity of Data Reviewed External Data Reviewed: notes. Labs: ordered. Decision-making details documented in ED Course. Radiology: ordered. Decision-making details documented in ED Course. Risk OTC drugs. Prescription drug management. Parenteral controlled substances. Flowsheet Documentation: Scoring Tools: No data recorded Disposition/Condition: ED Disposition ED Disposition Disch - Home Condition Stable Comment -- Discharge Medications: Patient's Medications START taking these medications DICYCLOMINE 20 [...] taking these medications No medications on file Follow-up: Electronically signed by: Olivia Garcia MD 03/02/23 012 [facility] 2023-02-18 02:22:03 Formatting of this n ote might be different from the original. Pt given printed and verbal discharge instructions regarding pancreatitis, encouraged hydration, Discussed ibuprofen and to take with food to avoid GI distress, alternate with Tylenol to help with pain and/or fever Pt verbalized understanding of instructions,pt encouraged to follow up with pcp and or Gi Advised to seek medical attention for new/prolonged/worsening of symptoms, No adverse reaction to meds given in ER noted upon discharge PIV d'cd, dressing to site, catheter in tact. Awake, alert oriented, resp reg unlabored, skin w/d, pt ambulated from ED, leaving in no apparent distress, T Linda Ayala RN [facility] 2023-02-17 22:53:36 Formatting of this n ote might be different from the original. Pt arrived ambulatory with complaints of vomiting [...] she thinks might be from her anxiety. Aline Lou RN [facility] 2023-02-17 15:59:15 Formatting of this n ote might be different from the original. Problem: Pain Goal: Control of pain at or below patient's documented comfort goal Outcome: Adequate for discharge Goal: Reduction in pain sensation Outcome: Adequate for discharge Problem: Venous Thromboembolism, (actual or risk of) Goal: Absence of venous thromboembolism (Risk) Outcome: Adequate for discharge Problem: Skin integrity Impaired (Risk or Actual) Goal: Wound healing Outcome: Adequate for discharge Goal: Prevention of new skin breakdown Outcome: Adequate for discharge Problem: Discharge Planning Goal: Adequate for discharge Outcome: Adequate for discharge Goal: Effective communication Outcome: Adequate for discharge T Beata Lamar RN [facility] 2023-02-17 00:21:19 Formatting of this n ote might be different from the original. Problem: Pain Goal: Control of pain at or below patient's documented comfort goal Outcome: Progressing as expected Goal: Reduction in pain sensation Outcome: Progressing as expected Problem: Venous Thromboembolism, (actual or risk of) Goal: Absence of venous thromboembolism (Risk) Outcome: Progressing as expected Problem: Skin integrity Impaired (Risk or Actual) Goal: Wound healing Outcome: Progressing as expected Goal: Prevention of new skin breakdown Outcome: Progressing as expected Problem: Discharge Planning Goal: Adequate for discharge Outcome: Progressing as expected Goal: Effective communication Outcome: Progressing as expected [facility] 2023-02-16 16:55:55 Formatting of this n ote might be different from the original. Problem: Pain Goal: Control of pain at or below patient's documented comfort goal Outcome: Progressing as expected Goal: Reduction in pain sensation Outcome: Progressing as expected Problem: Venous Thromboembolism, (actual or risk of) Goal: Absence of venous thromboembolism (Risk) Outcome: Progressing as expected Problem: Skin integrity Impaired (Risk or Actual) Goal: Wound healing Outcome: Progressing as expected Goal: Prevention of new skin breakdown Outcome: Progressing as expected Problem: Discharge Planning Goal: Adequate for discharge Outcome: Progressing as expected Goal: Effective communication Outcome: Progressing as expected T [facility] 2023-02-16 03:35:03 Formatting of this n ote might be different from the original. Problem: Pain Goal: Control of pain at or below patient's documented comfort goal Outcome: Progressing as expected Goal: Reduction in pain sensation Outcome: Progressing as expected Problem: Venous Thromboembolism, (actual or risk of) Goal: Absence of venous thromboembolism (Risk) Outcome: Progressing as expected Problem: Skin integrity Impaired (Risk or Actual) Goal: Wound healing Outcome: Progressing as expected Goal: Prevention of new skin breakdown Outcome: Progressing as expected Problem: Discharge Planning Goal: Adequate for discharge Outcome: Progressing as expected Goal: Effective communication Outcome: Progressing as expected [facility] 2023-02-15 19:41:18 Formatting of this n ote might be different from the original. Nurse Report Report given to JAMES Gatica. Chief complaint, assessment findings, infusion verify and orders reviewed. Plan of care discussed with both nurses. Stacie Man RN [facility] Stacie Man RN [facility] 2023-02-15 13:40:01 Formatting of this n ote might be different from the original. CC: patient presents to the ER with complaints of chest wall pain to the middle left chest with radiation to the left shoulder that began last night. Patient also states she is having LRQ abdominal pain that began 3 days ago. States she has taken tylenol without relief. PMHx: see history Awake, alert, oriented, resp reg unlabored, skin warm and dry, color appropriate for race, moves all ext without difficulty, amb without assistance. Appears in no distress. [facility] 2023-02-15 13:23:00 Associated Order(s): EKG-12 Lead ROUTINE ONCE Pre-Procedure Diagnose(s): Chest pain, unspecified type Post-Procedure Diagnose(s): Acute pancreatitis, unspecified complication status, unspecified pancreatitis type [facility] Emergency Department Note Patient Name: Charity Roca Date of : 1980 42 year old female Treatment Room: [place] [address] Primary Care Physician: Carlos Solano Patient Escorted by: Self [9] Mode of Arrival: Personal means [1] EMS Treatment Prior to ED Arrival: [employer] treatment: None Chief Complaint: Chief Complaint Patient presents with Chest wall pain History of Present Illness: Charity Roca is a 42 year old female who presents to the ED with complaint of anterior chest pain described as sharp , sudden onset last night . No aggravating or alleviating factors, no SOB, no fever, no cough., no vomiting or sweats. Taken tylenol without relief History provided by: Patient Chest Pain Pain location: L lateral chest Pain quality: burning and stabbing Pain radiates to: L shoulder Pain severity: Moderate Onset quality: Sudden Duration: 12 hours Timing: Constant Progression: Unchanged Chronicity: New Context: not breathing, not drug use, not eating, not intercourse, not lifting, not movement, not raising an arm and not at rest Relieved by: None tried Worsened by: Nothing Ineffective treatments: None tried Associated symptoms: anxiety, fatigue, heartburn and nausea Associated symptoms: no abdominal pain, no AICD problem, no altered mental status, no anorexia, no back pain, no diaphoresis, no dizziness, no dysphagia, no fever, no headache, no lower extremity edema, no numbness, no orthopnea, no palpitations and no PND Risk factors: no aortic disease Past Medical History/Immunizations: Past Medical History: Diagnosis Date Anxiety Hypertension PTSD (post-traumatic stress disorder) of family members. Tetanus received in last 5 years: Unknown Allergies: No Known Allergies Past Social History: Tobacco Use Every Day Smokeless Tobacco: Current user of smokeless tobacco. Past Surgical History: Past Surgical History: Procedure Laterality Date CHOLECYSTECTOMY TONSILLECTOMY [...] Negative. All other systems reviewed and are negative. Endocrine: Endocrine negative Physical Exam: ED Triage Vitals [02/15/23 1341] Weight 99.8 kg (220 lb) Actual or estimated Estimated by patient/family report Height 1.6 m (5' 3") BP 134/83 Pulse 103 Resp 20 Temp 36.8 ?C (98.3 ?F) Temp source Oral SpO2 97 % Measured on Room air Physical Exam Vitals and nursing note reviewed. Constitutional: General: She [...] the ACR Incidental Findings Committee;Journal of the [employer] Volume 7, Issue 10, Pages [phone], April 2010). CHEST 1 VW Final Result [...] process is identified in the chest. RL: 1158 END OF REPORT Lab Results: reviewed by [...] 0.01 - 0.07 10*3/uL COMP. METABOLIC PANEL (96869) - Abnormal NA 138 135 - 145 [...] Negative Negative Rapid Influenza B Negative Negative EKG: If EKG completed, see Procedure Note. Orders and Treatments: Orders Placed This Encounter Procedures XR CHEST [address] ABDOMEN PELVIS W CONTRAST COVID-19 (ID NOW TESTING) RAPID INFLUENZA A/B URINALYSIS D-DIMER LAB ONLY COVID INTERPRETATION CBC WITH DIFF COMP. METABOLIC PANEL (63648) LIPASE Orders Placed This Encounter Medications ibuprofen [...] 370-500 mL) injection 80 mL First Provider Eval: ED Events Date/Time Event User Comments 02/15/231344 Medical Screening Begins CANDI WISE -- 02/15/231344 First Provider Evaluation CANDI WISE -- No notes of EC Admission Criteria type on file. ED COURSE ED Course as of 02/15/231909Feb 15, 2023 1803 [...] . Pending labs [PD] ED Course User Index [PD] Leeanne Wise NP Diagnosis/Impression as of 02/15/231909 Acute pancreatitis, unspecified complication status, unspecified pancreatitis type Obesity (BMI 30-39.9) Anxiety PTSD (post-traumatic stress disorder) Major depressive disorder, remission status unspecified, unspecified whether recurrent Elevated d-dimer Procedures: EKG-12 Lead ROUTINE ONCE Date/Time: 02/15/2023 6:05 PM Performed by: Leeanne Wise NP Authorized by: Leeanne Wise NP ECG reviewed by ED Physician in the absence of a nutrition services manager: yes Previous ECG: Previous ECG: Unavailable Interpretation: Interpretation: abnormal Rate: ECG rate: 92 ECG rate assessment: normal Rhythm: Rhythm: sinus rhythm Ectopy: Ectopy: none QRS: QRS axis: Normal QRS intervals: Normal QRS conduction: normal ST segments: ST segments: Normal T waves: T waves: normal Q waves: Abnormal Q-waves: not present Other findings: Other findings: poor R wave progression MDM: Medical Decision Making Charity Roca is a 42 year old female [...] . Will add labs . Fluids, zofran Problems Addressed: Acute pancreatitis, unspecified complication status, unspecified pancreatitis type: acute illness or injury Details: Liver enzymes normal, history of cholecystectomy, minimally elevated WBC's CT ordered Admitted to the Hospitalist group Anxiety: chronic illness or injury Elevated d-dimer: undiagnosed new problem with uncertain prognosis [...] unspecified, unspecified whether recurrent: chronic illness or injury Obesity (BMI 30-39.9): chronic illness or injury PTSD (post-traumatic stress disorder): chronic illness or injury Amount and/or Complexity of Data Reviewed Labs: ordered. Decision-making details documented in ED Course. Details: Mild leukocytosis, lipase>2000, liver enzymes WNL , elevated D-dimer Radiology: ordered. ECG/medicine tests: ordered and independent interpretation performed. Decision-making details documented in ED Course. Details: Normal sinus rate of 92 bpm, normal intervals, normal segments, normal QRS, normal axis, poor r wave progression Discussion of management or test interpretation with external provider(s): Accepted for admission by Hospitalist for observation Risk Prescription drug management. Parenteral controlled substances. Flowsheet Documentation: Patient Vitals for the past 24 hrs: BP Temp Temp src Pulse Resp SpO2 Height Weight 02/15/23 1800 111/81 -- -- 83 20 94 % -- -- 02/15/23 1700 109/71 -- -- 83 15 97 % -- -- 02/15/23 1341 134/83 36.8 ?C (98.3 ?F) Oral 103 20 97 % 1.6 m (5' 3") 99.8 kg (220 lb) Disposition/Condition: ED Disposition ED Disposition Admit - Observation Condition -- Comment Is (or was) this a planned re-admission?: No Treatment Team: [facility] [[id number]] Is this patient COVID positive or a patient under investigation (PUI)?: No Electronically signed by: Leeanne Wise NP 02/15/231910 Associated attestation - Bushra Rios DO - 02/16/2023 7:30 AM CDT I was personally available for consultation in the Emergency Department during this encounter and patient evaluation by Leeanne Wise. [facility]
[2024-02-14] MEDS ORDERED: NA CHLORIDE 0.9% 1,000 ML ONE (15:16)
[2024-02-14 15:17] LABS: Absolute Basophils 0.2 K/uL (0-0.5); Absolute Eosinophils 0.2 K/uL (0-0.5); Absolute Lymphocytes (CBC) 2.5 K/uL (0.7-4.9); Absolute Monocytes 0.9 K/uL (0.1-1.3); Absolute Neutrophil 14.2 K/uL (1.8-8.0); Eosinophils % 1.3 % (0-4.4); Hematocrit 39.4 % (36.0-45.0); Hemoglobin 12.9 g/dL (12.0-15.0); MCH 26.1 pg (27.0-35.0); MCHC 32.7 g/dL (32.0-36.0); MCV 79.8 fL (80-100); MPV 7.2 fL (7.6-11.3); Neutrophils % 78.7 % (41.7-73.7); Platelets 380 thou/uL (152-406); RBC Red Blood Cell Count 4.94 M/uL (3.86-4.86); Red Cell Distribution Width 17.9 % (12.1-15.2)
[2024-02-14 15:41] LABS: Anion Gap 8.9 mEq/L (5.0-15.0); BUN Blood Urea Nitrogen 8 mg/dL (7-18); Bicarbonate 24 mEq/L (21-32); Glomerular Filtration Rate 112 ml/min (=/>90); Glucose Level 105 mg/dL (74-106); Potassium 3.9 mEq/L (3.5-5.1); Sodium Level 136 mEq/L (136-145)
[2024-02-14 15:45] LABS: Troponin High Sensitivity < 3.0 pg/mL (<58.9)
--- NOTE | 2024-02-14 15:54 | RAD REPORT ---
EXAM DESCRIPTION: RAD - Chest Single View - 02/14/2024 3:38 pm CLINICAL HISTORY: CHEST PAIN Chest pain. COMPARISON: <Comparisons> FINDINGS: Portable technique limits examination quality. Mild interstitial prominence is seen with peribronchial cuffing. This may indicate viral infection or mild interstitial pulmonary edema. The heart is upper limit of normal in size. No displaced fracture s.
[2024-02-14 16:06] LABS: Specific Gravity 1.005 (1.005-1.030); Sqamous Epithelial <5 /HPF (None Seen); Urine Bacteria <20 /HPF (<20); Urine Bilirubin NEGATIVE (Negative); Urine Blood Negative (Negative); Urine Clarity Turbid (Clear); Urine Color Colorless (Yellow); Urine Glucose NEGATIVE (Negative); Urine Ketones NEGATIVE (Negative); Urine Microscopic Reflex YN ORDER UMIC; Urine Nitrite NEGATIVE (Negative); Urine Protein NEGATIVE (Negative); Urine RBC <5 /HPF (None Seen); Urine Urobilinogen Normal (Normal); Urine WBC <5 /HPF (<5); Urine pH 5.5 (5.0-7.0)
[2024-02-14 16:08] LABS: Specific Gravity 1.005 (1.005-1.030); Urine Crystals Unidentified Few /HPF (None Seen)
--- NOTE | 2024-02-14 16:41 | EDPHYS ---
Physician Documentation [facility] Name: hCarity Hanks Age: 43 yrs Sex: Female : 1980 Arrival Date: 02/14/2024 Time: 14:41 Bed 15 Private MD: ED Physician Mayank Butler HPI: 02/13 16:23 This 43 yrs old Female presents to ER via EMS with complaints of Chest Pain. madeleine 16:23 The patient or guardian reports chest pain that is located primarily in the substernal madeleine area. Onset: this morning, today. The pain radiates to the left shoulder. Associated signs and symptoms: Pertinent positives: lightheadedness, shortness of breath. The chest pain is described as a heaviness, a pressure. Modifying factors: The symptoms are alleviated by nothing. the symptoms are aggravated by nothing. Severity of pain: At its worst the pain was moderate in the emergency department the pain is unchanged. The patient has experienced similar episodes in the past, several times. 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 - Infectious Disease History:: Denies. - Social history:: Smoking status: Patient denies any tobacco usage or history of. - Family history:: not pertinent. ROS: 16:23 Constitutional: Negative for fever, chills, and weight loss, Eyes: Negative for injury, madeleine pain, redness, and discharge, ENT: Negative for injury, pain, and discharge, Neck: Negative for injury, pain, and swelling, Abdomen/GI: Negative for abdominal pain, nausea, vomiting, diarrhea, and constipation, Back: Negative for injury and pain, : Negative for injury, bleeding, discharge, and swelling, MS/Extremity: Negative for injury and deformity, Skin: Negative for injury, rash, and discoloration, Neuro: Negative for headache, weakness, numbness, tingling, and seizure, Psych: Negative for depression, anxiety, suicide ideation, homicidal ideation, and hallucinations, Allergy/Immunology: Negative for hives, rash, and allergies, Endocrine: Negative for neck swelling, polydipsia, polyuria, polyphagia, and marked weight changes, Hematologic/Lymphatic: Negative for swollen nodes, abnormal bleeding, and unusual bruising, 16:23 Cardiovascular: Positive for chest pain, of the chest, 16:23 Respiratory: Positive for cough, shortness of breath, on exertion. Exam: 16:23 Constitutional: This is a well developed, well nourished patient who is awake, alert, madeleine and in no acute distress. Head/Face: Normocephalic, atraumatic. Eyes: Pupils equal round and reactive to light, extra-ocular motions intact. Lids and lashes normal. Conjunctiva and sclera are non-icteric and not injected. Cornea within normal limits. Periorbital areas with no swelling, redness, or edema. ENT: Nares patent. No nasal discharge, no septal abnormalities noted. Tympanic membranes are normal and external auditory canals are clear. Oropharynx with no redness, swelling, or masses, exudates, or evidence of obstruction, uvula midline. Mucous membranes moist. Neck: Trachea midline, no thyromegaly or masses palpated, and no cervical lymphadenopathy. Supple, full range of motion without nuchal rigidity, or vertebral point tenderness. No Meningismus. Chest/axilla: Normal chest wall appearance and motion. Nontender with no deformity. No lesions are appreciated. Cardiovascular: Regular rate and rhythm with a normal S1 and S2. No gallops, murmurs, or rubs. Normal PMI, no JVD. No pulse deficits. Respiratory: Lungs have equal breath sounds bilaterally, clear to auscultation and percussion. No rales, rhonchi or wheezes noted. No increased work of breathing, no retractions or nasal flaring. Abdomen/GI: Soft, non-tender, with normal bowel sounds. No distension or tympany. No guarding or rebound. No evidence of tenderness throughout. Back: No spinal tenderness. No costovertebral tenderness. Full range of motion. Skin: Warm, dry with normal turgor. Normal color with no rashes, no lesions, and no evidence of cellulitis. MS/ Extremity: Pulses equal, no cyanosis. Neurovascular intact. Full, normal range of motion. Neuro: Awake and alert, GCS 15, oriented to person, place, time, and situation. Cranial nerves II-XII grossly intact. Motor strength 5/5 in all extremities. Sensory grossly intact. Cerebellar exam normal. Normal gait. Psych: Awake, alert, with orientation to person, place and time. Behavior, mood, and affect are within normal limits. 16:23 ECG was reviewed by the Attending Physician. Vital Signs: 14:56 BP 156 / 95; Pulse 92; Resp 18; Temp 97.6(TE); Pulse Ox 98% on R/A; Height 5 ft. 6 in. ld1 ; Pain 8/10; 16:06 BP 122 / 111; Pulse 86; Resp 18; Pulse Ox 97% on R/A; ld1 16:41 Weight 104.33 kg; ld1 14:56 Pain Scale: Adult ld1 MDM: 15:04 Patient medically screened. madeleine 16:29 Differential diagnosis: abnormal EKG, acute myocardial infarction, acute pericarditis, madeleine anxiety, chest wall pain, costochondritis, esophagitis, hiatal hernia, myocarditis, pancreatitis, peptic ulcer disease, pericarditis, pneumonia, pulmonary embolus, stable angina, thoracic aortic disection, unstable angina. HEART Score: History: Slightly Suspicious (0), ECG: Normal (0), Age: < or = 45 years (0), Risk Factors: > or = 3 Risk factors for atherosclerotic disease (2), [Hypertension] [Active Smoker] [+ Family HX] [Obesity] Troponin: < or = 1 x Normal Limit (0). The patient was given aspirin in the Emergency Department. TATIANA Risk Score: 1 - Three or more CAD risk factors, 1 - ASA use in past 7 days, 1 - Recent [<24hrs] Severe Angina. Data reviewed: vital signs, nurses notes, EMS record, lab test result(s), EKG, radiologic studies, plain films. Consideration of Admission/Observation Patient was admitted/placed on observation. Escalation of care including admission/observation considered. I considered the following discharge prescriptions or medication management in the emergency department Medications were administered in the Emergency Department. See MAR. Independent interpretation of the following test(s) in the Emergency Department EKG: See my EKG interpretation above. Test considered but Not performed: CT: NO CT PE. Historians other than the Patient: EMS: EMS WELL INFORMED. Care significantly affected by the following chronic conditions: Hypertension, Obesity, TOBACCO ABUSE. Counseling: I had a detailed discussion with the patient and/or guardian regarding the historical points, exam findings, and any diagnostic results supporting the discharge/admit diagnosis, the presence of at least one elevated blood pressure reading (>120/80) during this emergency department visit, lab results, radiology results. 02/13 14:59 Order name: Basic Metabolic Panel; Complete Time: 16:17 ld1 02/13 14:59 Order name: CBC with Diff; Complete Time: 16:17 ld1 02/13 14:59 Order name: Troponin HS; Complete Time: 16:17 ld1 02/13 15:06 Order name: Lipase; Complete Time: 16:17 madeleine 02/13 15:06 Order name: Urinalysis w/ reflexes; Complete Time: 16:17 madeleine 02/13 15:06 Order name: PREGU; Complete Time: 16:17 madeleine 02/13 17:50 Order name: T4 Free EDMS 02/13 17:50 Order name: Thyroid Stimulating Hormone EDMS 02/13 17:50 Order name: Urinalysis w/ reflexes EDMS 02/13 17:50 Order name: Basic Metabolic Panel EDMS 02/13 17:50 Order name: Basic Metabolic Panel EDMS 02/13 17:50 Order name: Basic Metabolic Panel EDMS 02/13 17:50 Order name: Basic Metabolic Panel EDMS 02/13 17:50 Order name: Basic Metabolic Panel EDMS 02/13 17:50 Order name: Basic Metabolic Panel EDMS 02/13 17:50 Order name: CBC with Automated Diff EDMS 02/13 17:50 Order name: CBC with Automated Diff EDMS 02/13 17:50 Order name: CBC with Automated Diff EDMS 02/13 17:50 Order name: CBC with Automated Diff EDMS 02/13 17:50 Order name: CBC with Automated Diff EDMS 02/13 17:50 Order name: CBC with Automated Diff EDMS 02/13 17:50 Order name: Lipid Profile EDMS 02/13 17:50 Order name: Lipid Profile EDMS 02/13 17:50 Order name: Magnesium EDMS 02/13 17:50 Order name: Magnesium EDMS 02/13 17:50 Order name: Magnesium EDMS 02/13 17:50 Order name: Magnesium EDMS 02/13 17:50 Order name: Magnesium EDMS 02/13 17:50 Order name: Magnesium EDMS 02/13 17:50 Order name: Phosphorus EDMS 02/13 17:50 Order name: Phosphorus EDMS 02/13 17:50 Order name: Phosphorus EDMS 02/13 17:50 Order name: Phosphorus EDMS 02/13 17:50 Order name: Phosphorus EDMS 02/13 17:50 Order name: Phosphorus EDMS 02/13 17:50 Order name: Troponin High Sensitivity EDMS 02/13 17:50 Order name: Troponin High Sensitivity EDMS 02/13 17:50 Order name: Troponin High Sensitivity EDMS 02/13 14:59 Order name: XRAY Chest (1 view); Complete Time: 16:17 ld1 02/13 16:41 Order name: CT Chest Wo Con madeleine 02/13 17:49 Order name: Echo with Doppler EDMS 02/13 14:59 Order name: Cardiac monitoring; Complete Time: 14:59 ld1 02/13 14:59 Order name: EKG - Nurse/Tech; Complete Time: 14:59 ld1 02/13 14:59 Order name: IV Saline Lock; Complete Time: 15:09 ld1 02/13 14:59 Order name: Labs collected and sent; Complete Time: 14:59 ld1 02/13 14:59 Order name: O2 Per Protocol; Complete Time: 14:59 ld1 02/13 14:59 Order name: O2 Sat Monitoring; Complete Time: 14:59 ld1 EC:23 Rate is 94 beats/min. Rhythm is regular. QRS [place] is Normal. RI interval is normal. QRS mdaeleine interval is normal. QT interval is normal. No Q waves. T waves are Normal. No ST changes noted. Clinical impression: NSR w/ Non-specific ST/T Changes and No evidence of ischemia. Interpreted by me. Reviewed by me. Administered Medications: 15:08 Not Given (Duplicate Order): aspirinchewable tablet 162 mg PO once ld1 15:28 Drug: NS 0.9% IV 1000 ml IV at 125 ml/hr continuous Route: IV; Rate: 125 ml/hr; Site: ld1 left hand; 16:53 Follow up: Response: No adverse reaction; IV Status: Infusion continued; IV Intake: ld1 1000ml 16:52 Drug: Metoprolol PO 50 mg PO once Route: PO; ld1 16:52 Drug: morphine IVP or IV 4 mg IVP once over 4 mins Route: IVP; Infused Over: 4 mins; ld1 Site: left hand; 16:52 Drug: Ondansetron IVP 4 mg IVP once; over 2 minutes Route: IVP; Site: left hand; ld1 16:52 Drug: Famotidine IVP 20 mg IVP once; dilute with 10 mL 0.9% NaCl; give over 2 minutes ld1 Route: IVP; Site: left hand; 16:52 Drug: Enoxaparin Sub-Q 1 mg/kg Sub-Q once; MAX 100 MG Route: Sub-Q; Site: abdomen; ld1 Disposition Summary: 02/14/24 16:40 Hospitalization Ordered Notes: Hospitalization Status: Observation madeleine Provider: Thai David cha Location: Telemetry/MedSurg (observation) madeleine Condition: Fair madeleine Problem: new madeleine Symptoms: have improved madeleine Bed/Room Type: Standard [facility] Room Assignment: 212(02/14/24 17:54) bd Diagnosis - Angina pectoris, unspecified madeleine - Chest pain, unspecified madeleine - Essential (primary) hypertension madeleine - Tobacco abuse counseling madeleine - Tobacco use madeleine - Obesity, unspecified madeleine - Elevated white blood cell count madeleine Forms: - Medication Reconciliation Form madeleine - SBAR form madeleine - Leadership Thank You Letter madeleine Signatures: Dispatcher [employer] EDMS Nicole Galvan Corey, MD MD cha Sims, Lauren, RN RN ld1 Corrections: (The following items were deleted from the chart) 14:57 14:57 PSHx: Tonsillectomy; ld1 ld1 14:57 14:57 PSHx: Cholecystectomy; ld1 ld1 14:57 14:57 PSHx: cardiac stent; ld1 ld1 14:59 14:59 BASIC METABOLIC PANEL+C.LAB.BRZ ordered. EDMS EDMS 14:59 14:59 CBC+H.LAB.BRZ ordered. EDMS EDMS 14:59 14:59 Troponin High Sensitivity+C.LAB.BRZ ordered. EDMS EDMS 14:59 14:59 Chest Single View+RAD.RAD.BRZ ordered. EDMS EDMS 16:41 16:41 Thorax Wo Con+CT.RAD.BRZ ordered. EDMS EDMS 17:54 16:40 madeleine bd
--- NOTE | 2024-02-14 16:41 | ER ---
Nurse's Notes [facility] Name: Charity Hanks Age: 43 yrs Sex: Female : 1980 Arrival Date: 02/14/2024 Time: 14:41 Bed 15 Private MD: Diagnosis: Angina pectoris, unspecified;Chest pain, unspecified;Essential (primary) hypertension;Tobacco abuse counseling;Tobacco use;Obesity, unspecified;Elevated white blood cell count Presentation: 02/13 14:56 Chief complaint: EMS states: toned out to patient home for chest pain. Headache, sharp ld1 chest pain, SOB since 10 am. Coronavirus screen: At this time, the client does not indicate any symptoms associated with coronavirus-19. Ebola Screen: No symptoms or risks identified at this time. Initial Sepsis Screen: Does the patient meet any 2 criteria? No. Patient's initial sepsis screen is negative. Does the patient have a suspected source of infection? No. Patient's initial sepsis screen is negative. Risk Assessment: Do you want to hurt yourself or someone else? Patient reports no desire to harm self or others. Onset of symptoms was February 14, 2024. Care prior to arrival: Medication(s) given: ASA, 325 mg, Phenergan, 25 mg. 14:56 Method Of Arrival: EMS[facility] ld1 14:56 Acuity: CARLOS 3 ld1 Triage Assessment: 14:57 General: Appears in no apparent distress. comfortable, Behavior is calm, cooperative, ld1 appropriate for age. Pain: Complains of pain in chest Pain does not radiate. Pain currently is 7 out of 10 on a pain scale. Quality of pain is described as sharp, Pain began suddenly, Is continuous. EENT: No signs and/or symptoms were reported regarding the EENT system. Neuro: Level of Consciousness is awake, alert, obeys commands, Oriented to person, place, time, situation, Appropriate for age. Cardiovascular: Reports chest pain, Capillary refill < 3 seconds Patient's skin is warm and dry. Rhythm is sinus rhythm. Respiratory: Airway is patent Respiratory effort is even, unlabored. GI: Abdomen is round non-distended. : No signs and/or symptoms were reported regarding the genitourinary system. Derm: No signs and/or symptoms reported regarding the dermatologic system. Musculoskeletal: No signs and/or symptoms reported regarding the musculoskeletal system. CATH LAB NURSE: 18:47 LMP N/A - Irregular menses, Not ld1 Historical: - Allergies: 14:57 No Known Allergies; ld1 - PMHx: 14:57 Anxiety; depressive disorder; Myocardial infarction; PTSD; ld1 - Immunization history:: Adult Immunizations up to date. - Infectious Disease History:: Denies. - Social history:: Smoking status: Patient denies any tobacco usage or history of. - Family history:: not pertinent. Screenin:59 [facility] ED Fall Risk Assessment (Adult) History of falling in the last 3 months, ld1 including since admission No falls in past 3 months (0 pts) Confusion or Disorientation No (0 pts) Intoxicated or Sedated No (0 pts) Impaired Gait No (0 pts) Mobility Assist Device Used No (0 pt) Altered Elimination No (0 pt) Score/Fall Risk Level 0 - 2 = Low Risk Oriented to surroundings, Maintained a safe environment, Educated pt \T\ family on fall prevention, incl call for assistance when getting out of bed, Assessed \T\ reinforced patient's understanding of fall precautions, Provided non-skid footwear, Hourly rounding (assess needs \T\ fall precautionary measures) done, Used ambulatory aids as needed (educated on \T\ assisted with), Used gait belt as appropriate. Abuse screen: Denies threats or abuse. Denies injuries from another. Nutritional screening: No deficits noted. Tuberculosis screening: No symptoms or risk factors identified. Assessment: 14:59 Reassessment: See triage assessment. ld1 Vital Signs: 14:56 BP 156 / 95; Pulse 92; Resp 18; Temp 97.6(TE); Pulse Ox 98% on R/A; Height 5 ft. 6 in. ld1 ; Pain 8/10; 16:06 BP 122 / 111; Pulse 86; Resp 18; Pulse Ox 97% on R/A; ld1 16:41 Weight 104.33 kg; ld1 14:56 Pain Scale: Adult ld1 ED Course: 14:56 Patient arrived in ED. ld1 14:57 Triage completed. ld1 14:57 Arm band placed on right wrist. ld1 14:59 Patient has correct armband on for positive identification. Placed in gown. Bed in low ld1 position. Call light in reach. Side rails up X2. academic guidance specialist on. Pulse ox on. NIBP on. Door closed. Noise minimized. Warm blanket given. 14:59 No provider procedures requiring assistance completed. Patient maintains SpO2 ld1 saturation greater than 95% on room air. 15:00 Ayah Elias, JAMES is Primary Nurse. ld1 15:04 Mayank Butler MD is Attending Physician. [facility] 15:09 Maintain EMS IV. Dressing intact. Good blood return noted. Site clean \T\ dry. Gauge \T\ ld 1 site: 22G LH. Flushed with 10 mL NS. 15:28 PREGU Sent. ld1 15:28 Urinalysis w/ reflexes Sent. ld1 15:28 Lipase Sent. ld1 15:40 XRAY Chest (1 view) In Process Unspecified. EDMS 16:39 Thai David is Hospitalizing Provider. [facility] 17:17 CT Chest Wo Con In Process Unspecified. EDMS 18:46 Provided Education on: need for admit. ld1 18:46 Patient admitted, IV remains in place. ld1 Administered Medications: 15:08 Not Given (Duplicate Order): aspirinchewable tablet 162 mg PO once ld1 15:28 Drug: NS 0.9% IV 1000 ml IV at 125 ml/hr continuous Route: IV; Rate: 125 ml/hr; Site: ld1 left hand; 16:53 Follow up: Response: No adverse reaction; IV Status: Infusion continued; IV Intake: ld1 1000ml 16:52 Drug: Metoprolol PO 50 mg PO once Route: PO; ld1 16:52 Drug: morphine IVP or IV 4 mg IVP once over 4 mins Route: IVP; Infused Over: 4 mins; ld1 Site: left hand; 16:52 Drug: Ondansetron IVP 4 mg IVP once; over 2 minutes Route: IVP; Site: left hand; ld1 16:52 Drug: Famotidine IVP 20 mg IVP once; dilute with 10 mL 0.9% NaCl; give over 2 minutes ld1 Route: IVP; Site: left hand; 16:52 Drug: Enoxaparin Sub-Q 1 mg/kg Sub-Q once; MAX 100 MG Route: Sub-Q; Site: abdomen; ld1 Medication: 14:59 VIS not applicable for this client. ld1 Intake: 16:53 IV: 1000ml; Total: 1000ml. ld1 Outcome: 16:40 Decision to Hospitalize by Provider. madeleine 18:46 Admitted to Med/surg accompanied by tech, via wheelchair, ld1 18:46 Condition: stable 18:46 Instructed on the need for admit, 18:47 Patient left the ED. ld1 Signatures: Dispatcher [employer] Mayank Wright MD MD cha Sims, Lauren RN RN ld1 Corrections: (The following items were deleted from the chart) 14:57 14:57 PSHx: Tonsillectomy; ld1 ld1 14:57 14:57 PSHx: Cholecystectomy; ld1 ld1 14:57 14:57 PSHx: cardiac stent; ld1 ld1
[2024-02-14] MEDS ORDERED: METOPROLOL TAR 50 MG TAB ONE (16:46)
[2024-02-14] MEDS ORDERED: ONDANSETRON 4 MG/2 ML VIAL ONE (16:46)
[2024-02-14] MEDS ORDERED: MORPHINE 4 MG/ML SYR ONE (16:46)
[2024-02-14] MEDS ORDERED: FAMOTIDINE 20 MG/2 ML VIAL IV ONE (16:46)
[2024-02-14] MEDS ORDERED: ENOXAPARIN 100 MG/ML SYR SQ ONE (16:46)
--- NOTE | 2024-02-14 17:25 | RAD REPORT ---
EXAM DESCRIPTION: CT - Thorax Wo Con CLINICAL HISTORY: Chest pain CHEST PAIN COMPARISON: Chest For Pe Angio dated 12/15/2023; Chest Single View dated 02/14/2024; Chest Single View d ated 02/03/2024; Chest For Pe Angio dated 12/05/2023 FINDINGS: Mild interstitial pulmonary edema. No pleural thickening or pleural effusion. No pneumotho rax. No axillary, mediastinal or hilar adenopathy. No concerning bony finding. Cholecystectomy clips. 27 mm left adrenal mass. All CT scans are performed using dose optimization technique as appropriate and may include automated exposure control or mA/KV adjustment according to patient size. IMPRESSION: Mild interstitial pulmonary edema.
[2024-02-14] MEDS ORDERED: NITROGLYCERIN 0.4 MG/TAB SL PRN (17:35)
[2024-02-14 18:15] VITALS: BMI 36.6
--- NOTE | 2024-02-14 18:19 | P.HP ---
Certification for Inpatient Patient admitted to: Observation With expected LOS: <2 Midnights Patient will require the following post-hospital care: None Practitioner: I am a practitioner with admitting privileges, knowledge of patient current condition, hospital course, and medical plan of care. Services: Services provided to patient in accordance with Admission requirements found in Title 42 Section 412.3 of the Code of Federal Regulations Patient History Date of Service: 02/14/24 Reason for admission: Chest pain r/o History of Present Illness: Charity Hanks is a 43 year old female with Pmhx angina, chronic tobacco use, HTN, CAD s/p stent Right PDA who presented to the ED with chief complaint of chest pain that started early this morning. She reports frequent chest pain that "comes on out of no where". During examination, she reported her chest pain is reproducible to her left chest and shoulder, she is tachypnic, and "clammy". Her blood pressure is stable, mild tachycardia, and afebrile. WBC 18, troponin <3, UA negative, test negative. Chest xray reports "Mild interstitial prominence is seen with peribronchial cuffing. This may indicate viral infection or mild interstitial pulmonary edema. The heart is upper limit of normal in size. No displaced fractures." Initial vitals: BP 156 / 95; Pulse 92; Resp 18; Temp 97.6(TE); Pulse Ox 98% on R/A; Charity will be admitted to hospitalist service for further evaluation and treatment, Cardiology consulted. Allergies No Known Allergies Allergy (Unverified 03/25/22 00:43) Home Medications: Sertraline HCl 150 mg PO DAILY 12/05/23 Suvorexant [Belsomra] 20 mg PO BEDTIME 12/05/23 hydrOXYzine pamoate [Hydroxyzine Pamoate] 1 tab PO BEDTIME PRN PRN 12/05/23 Aspirin [Adult Aspirin Regimen] 81 mg PO DAILY 30 Days #30 tab 12/06/23 Atorvastatin Calcium 40 mg PO DAILY 30 Days #30 tab 12/06/23 Clopidogrel Bisulfate [Plavix*] 75 mg PO DAILY 30 Days #30 tab 12/06/23 Pantoprazole Sodium [Protonix] 40 mg PO DAILY 30 Days #30 tab 12/16/23 ARIPiprazole [Abilify*] 1 tab PO DAILY 01/11/24 Isosorbide Mononitrate [Isosorbide Mononitrate ER] 60 mg PO DAILY 30 Days #30 tab 01/11/24 - Past Medical/Surgical History Diabetic: No -: Anxiety/depression -: Bipolar -: PTSD -: HLD -: AK -: Angina -: HTN -: Cholecystectomy -: tonsillectomy -: cardiac stent x1 Psychosocial/ Personal History: Unemployed, lives at home with her father and 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 - Family History Mother -: Heart disease Father -: Heart disease Brother Notes: bipolar. anxiety. depression - Social History Smoking Status: Light Tobacco smoker (1-9 cigarettes/day) (Reports 5 cigarettes daily) Alcohol use: No CD- Drugs: No Caffeine use: Yes Review of Systems General: Other (Diaphoretic) Respiratory: Shortness of Breath Cardiovascular: Chest Pain (left chest, radiating to left shoulder), Light Headedness Gastrointestinal: Nausea Physical Examination - Physical Exam General: Alert, In no apparent distress, Oriented x3 HEENT: Atraumatic, Normocephalic, PERRLA Neck: Supple, 2+ carotid pulse no bruit Respiratory: Clear to auscultation bilaterally, Normal air movement Cardiovascular: Normal pulses, Regular rate/rhythm, Normal S1 S2 Capillary refill: <2 Seconds Gastrointestinal: Normal bowel sounds, Soft and benign, Distended (obese) Musculoskeletal: No clubbing Integumentary: No rashes Neurological: Normal speech, Normal tone - Studies Laboratory Data (last 24 hrs) 02/14/24 02/14/24 02/14/24 15:07 15:07 15:07 WBC 18.10 H Hgb 12.9 Hct 39.4 Plt Count 380 Sodium 136 Potassium 3.9 BUN 8 Creatinine 0.63 Glucose 105 Lipase 29 Assessment and Plan - Plan Assessment and Plan Chest pain r/o in a patient wit CAD s/p stent to right PDA History of Angina - EKG: No obvious ST segment changes - troponin <3, Serial pending - Ordered transthoracic echocardiogram - chest x-ray "Negative for pulmonary embolism. Mild nonspecific dependent ground-glass opacities could reflect either dependent atelectasis or possibly mild pneumonitis." - ordered CTA thorax - Consult Cardiology - recommendations appreciated - Start daily baby aspirin and statin - Symptom control with PRN acetaminophen, nitroglycerin, morphine - continuous telemetry - TSH/FreeT4, A1C, lipid panel pending -continue Imdur Leukocytosis -WBC 18, afebrile -Gentle IVF -monitor in AM labs -Chest xray reports "Negative for pulmonary embolism. Mild nonspecific dependent ground-glass opacities could reflect either dependent atelectasis or possibly mild pneumonitis." History of HTN History of GERD History of anxiety/PTSD -continue home medications Chronic tobacco use -cessation education provided -She reports a decreased in cigarette use to 5 cigarettes daily DVT ppx SCD, lovenox 100 mg given in ED Full code LOS 24 hour obs Discharge Plan: Home Plan to discharge in: 24 Hours - Advance Directives Does patient have a Living Will: No Does patient have a Durable POA for Healthcare: No
[2024-02-14 18:33] LABS: Thyroid Stimulating Hormone 2.86 uIU/mL (0.358-3.740)
[2024-02-14 18:59] VITALS: O2SAT 97
[2024-02-14] MEDS: NA CHLORIDE 0.9% 1,000 ML IV SCH (20:23)
[2024-02-14] MEDS: ROSUVASTATIN 10 MG TAB PO SCH (20:24)
[2024-02-14] MEDS: MORPHINE 2 MG/ML SYR IV PRN (20:24)
[2024-02-15] MEDS: ASPIRIN EC 81 MG TAB PO SCH (08:09)
[2024-02-15] MEDS: CLOPIDOGREL 75 MG TABLET PO SCH (08:09)
[2024-02-15] MEDS: PANTOPRAZOLE 40MG TABLET PO SCH (08:09)
[2024-02-15] MEDS: ISOSORBIDE MONO SR 60 MG TAB PO SCH (08:09)
[2024-02-15] MEDS: ACETAMINOPHEN 500 MG TAB PO PRN (08:10)
[2024-02-15 08:21] LABS: Absolute Basophils 0.1 K/uL (0-0.5); Absolute Eosinophils 0.3 K/uL (0-0.5); Absolute Lymphocytes (CBC) 2.9 K/uL (0.7-4.9); Absolute Monocytes 0.6 K/uL (0.1-1.3); Absolute Neutrophil 7.7 K/uL (1.8-8.0); Basophils % 0.7 % (0-1.3); Eosinophils % 2.3 % (0-4.4); Hematocrit 38.7 % (36.0-45.0); Hemoglobin 12.3 g/dL (12.0-15.0); Lymphocytes % 25.1 % (15.3-44.8); MCH 25.7 pg (27.0-35.0); MCHC 31.7 g/dL (32.0-36.0); MCV 81.1 fL (80-100); MPV 7.8 fL (7.6-11.3); Neutrophils % 66.9 % (41.7-73.7); Platelets 329 thou/uL (152-406); RBC Red Blood Cell Count 4.78 M/uL (3.86-4.86); Red Cell Distribution Width 17.6 % (12.1-15.2)
[2024-02-15 08:42] LABS: Magnesium 2.2 mg/dL (1.6-2.4); Phosphorus 2.4 mg/dL (2.5-4.9)
[2024-02-15] MEDS ORDERED: ATORVASTATIN 40 MG TAB PO SCH (09:00)
--- NOTE | 2024-02-15 10:46 | RAD REPORT ---
EXAM DESCRIPTION: CT - Chest For Pe Angio - 02/15/2024 10:23 am CLINICAL HISTORY: Chest pain COMPARISON: February 14, 2024 TECHNIQUE: Dynamically enhanced axial 3 mm thick images of the chest were obtained during administra tion of 100 mL Isovue 370 IV contrast. Coronal and oblique reconstruction images were generated and r eviewed. Exam utilizes a protocol for optimal evaluation of pulmonary arterial tree. Maximum intensity projections 3D imaging was utilized All CT scans are performed using dose optimization technique as appropriate and may include automated exposure control or mA/KV adjustment according to patient size. FINDINGS: A pulmonary embolus is not seen. A thoracic aortic aneurysm is not noted. A pleural effusion is not seen. A pericardial effusion is not seen. Calcified mediastinal lymph node. A lung consolidation is not present. IMPRESSION: Negative for a pulmonary embolism.
[2024-02-15] MEDS: hydrOXYzine HCL 25 MG TAB PO ONE (12:51)
[2024-02-15] MEDS: SERTRALINE HCL 100 MG TAB PO SCH (14:04)
[2024-02-15] MEDS: LORAZEPAM 1 MG TABLET PO SCH (14:04)
--- NOTE | 2024-02-15 15:45 | P.DS ---
Admission Date: 02/14/24 Discharge Date: 02/15/24 Disposition: ROUTINE DISCHARGE Discharge Condition: GOOD Reason for Admission: Chest pain r/o Brief History of Present Illness: Diagnosis Chest pain r/o in a patient wit CAD s/p stent to right PDA History of Angina Leukocytosis History of HTN History of GERD History of anxiety/PTSD Chronic tobacco use HPI 02/14/24 Charity Hanks is a 43 year old female with Pmhx angina, chronic tobacco use, HTN, CAD s/p stent Right PDA who presented to the ED with chief complaint of chest pain that started early this morning. She reports frequent chest pain that "comes on out of no where". During examination, she reported her chest pain is reproducible to her left chest and shoulder, she is tachypnic, and "clammy". Her blood pressure is stable, mild tachycardia, and afebrile. WBC 18, troponin <3, UA negative, test negative. Chest xray reports "Mild interstitial prominence is seen with peribronchial cuffing. This may indicate viral infection or mild interstitial pulmonary edema. The heart is upper limit of normal in size. No displaced fractures." Initial vitals: BP 156 / 95; Pulse 92; Resp 18; Temp 97.6(TE); Pulse Ox 98% on R/A; Charity will be admitted to hospitalist service for further evaluation and treatment, Cardiology consulted. Hospital Course: Charity Hanks is a pleasant 43 year old female with a past medical history significant for angina, chronic tobacco use, HTN, CAD s/p stent Right PDA who was admitted to the [facility] on 02/14/24 for Chest pain. Charity presented to the ED with chief complaint of chest pain and feeling "clammy". She had a stent placed in November and was concerned that this chest pain could be the same as last time when she needed a stent. She was monitored through the night, troponin remained negative, CTA thorax negative for PE or other acute findings, EKG negative for ST changes. She reports being compliant with her medication regimen since her stent placement. She reports feeling better with relieved chest pain, she has felt better after taking her anxiety medication and remains on Room air. She is tolerating PO diet, ambulating independently, and hemodynamically stable for discharge. On 02/15/24, Charity was seen on morning rounds and deemed medically stable for discharge. Charity was discharged with instructions to schedule follow-up jennifer ointments with Dr. Arthur and PCP. Charity was provided prescriptions for tramadol for chest pain. Physical Exam General: Alert and Oriented x3, NAD, conversing well HEENT: Atraumatic, Normocephalic, PERRLA Neck: Supple, 2+ carotid pulse no bruit Respiratory: Clear to auscultation bilaterally, Symmetrical chest wall movement, on RA Cardiovascular: Normal pulses, normal sinus rhythm, Normal S1 S2 Capillary refill: <2 Seconds Gastrointestinal: Normal bowel sounds, Soft and benign on palpation, Distended (obese) Musculoskeletal: No clubbing Integumentary: No rashes Neurological: Normal speech, Normal tone Vital Signs/Physical Exam: Temp Pulse Resp BP Pulse Ox 98.1 F 68 22 H 102/54 L 96 02/15/24 12:00 02/15/24 12:00 02/15/24 12:00 02/15/24 12:00 02/15/24 12:00 Laboratory Data at Discharge: WBC 11.50 thou/uL (4.3-10.9) H 02/15/24 07:40 Hgb 12.3 g/dL (12.0-15.0) 02/15/24 07:40 Hct 38.7 % (36.0-45.0) 02/15/24 07:40 Plt Count 329 thou/uL (152-406) 02/15/24 07:40 Sodium 136 mEq/L (136-145) 02/15/24 07:40 Potassium 4.0 mEq/L (3.5-5.1) 02/15/24 07:40 BUN 9 mg/dL (7-18) 02/15/24 07:40 Creatinine 0.51 mg/dL (0.55-1.02) L 02/15/24 07:40 Glucose 99 mg/dL (74-106) 02/15/24 07:40 Phosphorus 2.4 mg/dL (2.5-4.9) L 02/15/24 07:40 Magnesium 2.2 mg/dL (1.6-2.4) 02/15/24 07:40 Triglycerides 155 mg/dL (<150) H 02/15/24 07:40 Cholesterol 171 mg/dL (<200) 02/15/24 07:40 HDL Cholesterol 36 mg/dL (40-60) L 02/15/24 07:40 Cholesterol/HDL Ratio 4.75 02/15/24 07:40 Lipase 29 U/L (13-75) 02/14/24 15:07 Home Medications: Sertraline HCl 150 mg PO DAILY 12/05/23 Suvorexant [Belsomra] 20 mg PO BEDTIME 12/05/23 hydrOXYzine pamoate [Hydroxyzine Pamoate] 1 tab PO BEDTIME PRN PRN 12/05/23 Aspirin [Adult Aspirin Regimen] 81 mg PO DAILY 30 Days #30 tab 12/06/23 Atorvastatin Calcium 40 mg PO DAILY 30 Days #30 tab 12/06/23 Clopidogrel Bisulfate [Plavix*] 75 mg PO DAILY 30 Days #30 tab 12/06/23 Pantoprazole Sodium [Protonix] 40 mg PO DAILY 30 Days #30 tab 12/16/23 ARIPiprazole [Abilify*] 1 tab PO DAILY 01/11/24 Isosorbide Mononitrate [Isosorbide Mononitrate ER] 60 mg PO DAILY 30 Days #30 tab 01/11/24 LORazepam [Ativan*] 1 mg PO DAILY tab 02/15/24 Rosuvastatin [Crestor*] 40 mg PO BEDTIME tab 02/15/24 Sertraline [Zoloft*] 100 mg PO DAILY tab 02/15/24 Tramadol HCl 100 mg PO Q8H PRN 6 Days #15 tab 02/15/24 New Medications: Tramadol HCl 100 mg PO Q8H PRN 6 Days #15 tab PRN Reason: Pain Scale 8-10 (Severe) Physician Discharge Instructions: PROBLEM: ANGINA, CHEST PAIN GOAL: Clear understanding of disease process INSTRUCTIONS: Diet: AHA Activity: Ad selin Raine Hanks was monitored for chest pain. Troponins remained flat, EKG is negative for ST changes, Telemetry showing normal sinus rhythm. Dr. Arthur recommends following up with him in his clinic on Saturday. Please call and schedule an appointment. Return to the ED if your symptoms worsen and you will be re-evaluated. 1. Please call and schedule a follow-up appointment with your PCP in 3-5 days - Please follow-up with your PCP for medication refills/adjustments 2. Please call and schedule a follow-up appointment with Dr. Arthur on Saturday 3. Continue heart healthy diet 4. No activity restrictions 5. Return to the ED if symptoms worsen New medications Tramadol 50 mg PO Q6h PRN for chest pain Diet: AHA Activity: Ad selin Followup: Riddhi Freitas FNP [Primary Care Provider] - Neil Arthur MD [ACTIVE - CAN ADMIT] -
[2024-02-15 16:51] VITALS: BP 127/79; TEMP 97.6
--- NOTE | 2024-02-17 13:54 | EKG ---
Test Date: 2024-02-14 Test Time: 14:56:10 Manager Spanish: MITUL MEASUREMENT RESULTS: Intervals: Rate: 94 NM: 152 QRSD: 88 QT: 368 QTc: 460 [place]: P: 27 NM: 152 QRS: -27 T: 17 INTERPRETIVE STATEMENTS: Normal sinus rhythm Normal ECG Compared to ECG 02/03/2024 20:28:18 No significant changes Electronically Signed On 02-17-24 13:47:45 CDT by Neil Arthur
== END 2024-02-15 17:33 | disposition home or self-care (01) ==
LOC: ER 14:41 → ERHOLD 17:35 → 2ND 18:06
PROVIDERS: ADMIT Internal Medicine; ATTEND Internal Medicine
DX: R07.9 Chest pain, unspecified (principal); F41.9 Anxiety disorder, unspecified; I10 Essential (primary) hypertension; I25.10 Atherosclerotic heart disease of native coronary artery without angina pectoris; F17.210 Nicotine dependence, cigarettes, uncomplicated; R00.0 Tachycardia, unspecified; R06.82 Tachypnea, not elsewhere classified; D72.829 Elevated white blood cell count, unspecified; K21.9 Gastro-esophageal reflux disease without esophagitis; F43.10 Post-traumatic stress disorder, unspecified; Z95.5 Presence of coronary angioplasty implant and graft
CPT/HCPCS: 96361; 85025 ×2; 81001; 80048 ×2; 36415 ×2; 83735; 81025; 84100; 80061; 84443; 84484 ×3; 84439; 83690; 71250; 71275; 71045; 96375; 96372; 96374; 99285; Q9967; J1650; J2270 ×4; J2405; J7030 ×2; 93005

== ENCOUNTER 2024-02-21 17:59 | Emergency (ER) | payer OTHER ==
[2024-02-21 18:56] LABS: Absolute Basophils 0.1 K/uL (0-0.5); Absolute Eosinophils 0.2 K/uL (0-0.5); Absolute Lymphocytes (CBC) 2.4 K/uL (0.7-4.9); Absolute Monocytes 0.8 K/uL (0.1-1.3); Absolute Neutrophil 8.2 K/uL (1.8-8.0); Basophils % 0.9 % (0-1.3); Eosinophils % 1.9 % (0-4.4); Hematocrit 39.7 % (36.0-45.0); Hemoglobin 13.1 g/dL (12.0-15.0); Lymphocytes % 20.5 % (15.3-44.8); MCH 26.4 pg (27.0-35.0); MCV 80.1 fL (80-100); MPV 7.4 fL (7.6-11.3); Monocytes % 7.1 % (3.3-12.3); Neutrophils % 69.6 % (41.7-73.7); Nucleated Red Blood Cells % 0.1 % (0-0); Platelets 326 thou/uL (152-406); RBC Red Blood Cell Count 4.96 M/uL (3.86-4.86); Red Cell Distribution Width 18.1 % (12.1-15.2)
[2024-02-21 19:14] LABS: Anion Gap 8.7 mEq/L (5.0-15.0); BUN Blood Urea Nitrogen 9 mg/dL (7-18); Bicarbonate 25 mEq/L (21-32); Glomerular Filtration Rate 97 ml/min (=/>90); Glucose Level 110 mg/dL (74-106); NT PRO-BNP 27 pg/mL (<125); Potassium 3.7 mEq/L (3.5-5.1); Sodium Level 138 mEq/L (136-145)
[2024-02-21] MEDS ORDERED: MORPHINE 4 MG/ML SYR ONE (19:14)
[2024-02-21 19:16] LABS: Troponin High Sensitivity < 3.0 pg/mL (<58.9)
--- NOTE | 2024-02-21 20:05 | RAD REPORT ---
EXAM DESCRIPTION: RADChest Single View02/21/2024 7:55 pm CLINICAL HISTORY: CHEST PAIN COMPARISON: Chest Single View dated 02/14/2024; Chest Single View dated 02/03/2024; Chest Single View d ated 02/01/2024; Chest Single View dated 01/11/2024 TECHNIQUE: Portable AP view of the chest. FINDINGS: The lungs are clear. No pneumothorax or effusion. The cardiomediastinal contours are unre markable. IMPRESSION: No acute cardiopulmonary process.
--- NOTE | 2024-02-21 20:11 | ER ---
Nurse's Notes [facility] Name: Charity Hanks Age: 43 yrs Sex: Female : 1980 Arrival Date: 02/21/2024 Time: 17:59 Bed 5 Private MD: Diagnosis: Chest pain, unspecified Presentation: 02/20 18:15 Chief complaint: Patient states: CHEST PAIN x 3 HOURS, HAD CHEMICAL STRESS TEST DONE iw WITH dR. THOMSON TODAY. Coronavirus screen: At this time, the client does not indicate any symptoms associated with coronavirus-19. Ebola Screen: No symptoms or risks identified at this time. Initial Sepsis Screen: Does the patient meet any 2 criteria? No. Patient's initial sepsis screen is negative. Does the patient have a suspected source of infection? No. Patient's initial sepsis screen is negative. Risk Assessment: Do you want to hurt yourself or someone else? Patient reports no desire to harm self or others. Onset of symptoms was February 21, 2024. 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 - Infectious Disease History:: Denies. - Family history:: not pertinent. - Hospitalizations: : The patient was recently seen at [facility]. - Social history:: Smoking status: Patient reports the use of cigarette tobacco products, 1/4 PPD. Screenin:17 [facility] ED Fall Risk Assessment (Adult) History of falling in the last 3 months, al5 including since admission No falls in past 3 months (0 pts) Confusion or Disorientation No (0 pts) Intoxicated or Sedated No (0 pts) Impaired Gait No (0 pts) Mobility Assist Device Used No (0 pt) Altered Elimination No (0 pt) Score/Fall Risk Level 0 - 2 = Low Risk Oriented to surroundings, Maintained a safe environment, Hourly rounding (assess needs \T\ fall precautionary measures) done. Abuse screen: Denies threats or abuse. Denies injuries from another. Nutritional screening: No deficits noted. Tuberculosis screening: No symptoms or risk factors identified. Assessment: 19:17 General: Appears in no apparent distress. Behavior is calm, cooperative. Pain: al5 Complains of pain in chest Pain does not radiate. Pain currently is 8 out of 10 on a pain scale. Pain began today. Neuro: Level of Consciousness is awake, alert, obeys commands, Oriented to person, place, time, situation. Cardiovascular: Capillary refill < 3 seconds Patient's skin is warm and dry. Cardiovascular: Reports chest pain. Respiratory: Airway is patent Respiratory effort is even, unlabored, Respiratory pattern is regular, symmetrical. GI: No signs and/or symptoms were reported involving the gastrointestinal system. : No signs and/or symptoms were reported regarding the genitourinary system. EENT: No signs and/or symptoms were reported regarding the EENT system. Derm: Skin is intact, Skin is pink, warm \T\ dry. normal. Musculoskeletal: No signs and/or symptoms reported regarding the musculoskeletal system. 20:47 Reassessment: Patient and/or family updated on plan of care and expected duration. Pain tm6 level reassessed. Patient is alert, oriented x 3, equal unlabored respirations, skin warm/dry/pink. Vital Signs: 18:19 BP 155 / 96; Resp 18; Temp 97.9; Pulse Ox 99% on R/A; Pain 8/10; iw 20:47 BP 138 / 105; Pulse 95; Resp 19; Temp 97.7; Pulse Ox 100% on R/A; Pain 5/10; tm6 18:19 Pain Scale: Adult iw 20:47 Pain Scale: Adult tm6 ED Course: 18:09 Patient arrived in ED. iw 18:09 Carmine Jackson MD is Attending Physician. rn 18:15 Nazanin Woods, JAMES is Primary Nurse. iw 18:16 Triage completed. iw 18:18 Arm band placed on. iw 18:45 Initial lab(s) drawn, by me, sent to lab. Inserted saline lock: 20 gauge in right hb forearm, using aseptic technique. Blood collected. Flushed with 10 mL NS. 19:11 Troponin HS Sent. al5 19:11 NT PRO-BNP Sent. al5 19:11 Basic Metabolic Panel Sent. al5 19:18 Patient has correct armband on for positive identification. Bed in low position. Call al5 light in reach. Side rails up X 1. Provided Education on: processes and procedures. Client placed on continuous cardiac and pulse oximetry monitoring. NIBP monitoring applied. 19:18 No provider procedures requiring assistance completed. O2 via room air. al5 19:20 Primary Nurse role handed off by Nazanin Woods, JAMES al5 19:20 Becky Marshall, RN is Primary Nurse. al5 19:57 XRAY Chest (1 view) In Process Unspecified. EDMS 20:48 IV discontinued, intact, bleeding controlled, No redness/swelling at site. Pressure tm6 dressing applied. Administered Medications: 19:16 Drug: morphine IVP or IV 4 mg IVP once over 4 mins Route: IVP; Infused Over: 4 mins; al5 Site: right forearm; 20:00 Follow up: Response: No adverse reaction; Pain is decreased al5 20:46 Drug: morphine IVP or IV 4 mg IVP once over 4 mins Route: IVP; Infused Over: 4 mins; tm6 Site: right antecubital; 20:47 Follow up: Response: Medication administered at discharge. tm6 Medication: 19:17 VIS not applicable for this client. al5 Outcome: 20:10 Discharge ordered by . rn 20:48 Discharged to home ambulatory, with family, tm6 20:48 Condition: stable 20:48 Discharge instructions given to Instructed on discharge instructions, follow up and referral plans. Demonstrated understanding of instructions, follow-up care, 20:48 Patient left the ED. tm6 Signatures: Dispatcher [employer] EDHI Nazanin Woods, Carmine Varela RN, MD MD rn Baxter, Heather, RN RN hb Masterson, Tawney, RN RN tm6 Becky Marshall RN RN al5
--- NOTE | 2024-02-21 20:11 | EDPHYS ---
Physician Documentation [facility] Name: Charity Hanks Age: 43 yrs Sex: Female : 1980 Arrival Date: 02/21/2024 Time: 17:59 Bed 5 Private MD: ED Physician Carmine Jackson HPI: 02/20 18:24 This 43 yrs old Female presents to ER via EMS with complaints of Chest Pain. rn 18:24 The patient or guardian reports chest pain that is located primarily in the substernal rn area. Onset: today. The pain does not radiate. Associated signs and symptoms: Pertinent positives: None. Pertinent negatives: abdominal pain, cough, shortness of breath, syncope, vomiting. The chest pain is described as sharp. Severity of pain: At its worst the pain was mild in the emergency department the pain is unchanged. The patient has experienced similar episodes in the past. Patient reports had stress test with Dr. Arthur office today began to have chest pain during exam, they were able to complete a chemical stress test but she does not know the results. Went home and had more sharp chest pain. Call 911. Recently admitted for chest pain, discharged and this was follow-up visit from hospitalization.. 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 - Infectious Disease History:: Denies. - Family history:: not pertinent. - Hospitalizations: : The patient was recently seen at [facility]. - Social history:: Smoking status: Patient reports the use of cigarette tobacco products, / PPD. ROS: 18:25 Constitutional: Negative for fever, chills, and weight loss, Neck: Negative for injury, rn pain, and swelling, Cardiovascular: + chest pain Respiratory: Negative for shortness of breath, cough, wheezing, and pleuritic chest pain, Abdomen/GI: Negative for abdominal pain, nausea, vomiting, diarrhea, and constipation, MS/Extremity: Negative for injury and deformity, Skin: Negative for injury, rash, and discoloration, Neuro: Negative for headache, weakness, numbness, tingling, and seizure, Exam: 18:25 Constitutional: This is a well developed, well nourished patient who is awake, alert, rn appears anxious Cardiovascular: Regular rate and rhythm. No pulse deficits. Respiratory: No increased work of breathing, no retractions or nasal flaring. Abdomen/GI: Soft, non-tender MS/ Extremity: Pulses equal, no cyanosis. Neuro: Awake and alert, GCS 15 18:46 ECG was reviewed by the Attending Physician. rn Vital Signs: 18:19 BP 155 / 96; Resp 18; Temp 97.9; Pulse Ox 99% on R/A; Pain 8/10; iw 20:47 BP 138 / 105; Pulse 95; Resp 19; Temp 97.7; Pulse Ox 100% on R/A; Pain 5/10; tm6 18:19 Pain Scale: Adult iw 20:47 Pain Scale: Adult tm6 MDM: 18:09 Patient medically screened. rn 18:22 Management of patient was discussed with the following: Donor Services Technician: Case discussed with rn Dr. Patel, states if troponin negative, can discharge home and he will take a look at the stress test results, notify patient if any abnormality.. 20:08 Differential diagnosis: acute myocardial infarction, acute pericarditis, anxiety, chest rn wall pain, costochondritis, esophagitis, gastritis, pleurisy, pneumonia, pneumothorax. Data reviewed: vital signs, nurses notes, lab test result(s), EKG, radiologic studies, plain films, and as a result, I will discharge patient. Consideration of Admission/Observation Escalation of care including admission/observation considered. Escalation considered but recently had admission for chest pain, just had stress test today, per Dr. Patel, okay to discharge home and he will discuss stress test results with her on Saturday. Return precautions given and understood.. Special discussion: I discussed with the patient/guardian in detail that at this point there is no indication for admission to the hospital. It is understood, however, that if the symptoms persist or worsen the patient needs to return immediately for re-evaluation. 02/20 18:10 Order name: Basic Metabolic Panel; Complete Time: 19:23 rn 02/20 18:10 Order name: CBC with Diff; Complete Time: :23 rn 02/20 18:10 Order name: NT PRO-BNP; Complete Time: :23 rn 02/20 18:10 Order name: Troponin HS; Complete Time: 19:23 rn 02/20 18:10 Order name: XRAY Chest (1 view); Complete Time: 20:08 rn 02/20 18:10 Order name: EKG; Complete Time: 18:10 rn 02/20 18:10 Order name: Cardiac monitoring; Complete Time: 18:39 rn 02/20 18:10 Order name: EKG - Nurse/Tech; Complete Time: 18:39 rn 02/20 18:10 Order name: IV Saline Lock; Complete Time: 18:47 rn 02/20 18:10 Order name: Labs collected and sent; Complete Time: 18:47 rn 02/20 18:10 Order name: O2 Per Protocol; Complete Time: 18:47 rn 02/20 18:10 Order name: O2 Sat Monitoring; Complete Time: 18:47 rn EC:46 Rate is 89 beats/min. Rhythm is regular. QRS Leming is Normal. DE interval is normal. QRS rn interval is normal. QT interval is normal. No Q waves. T waves are Normal. No ST changes noted. Clinical impression: NSR w/ Non-specific ST/T Changes. Interpreted by me. Reviewed by me. Administered Medications: 19:16 Drug: morphine IVP or IV 4 mg IVP once over 4 mins Route: IVP; Infused Over: 4 mins; al5 Site: right forearm; 20:00 Follow up: Response: No adverse reaction; Pain is decreased al5 20:46 Drug: morphine IVP or IV 4 mg IVP once over 4 mins Route: IVP; Infused Over: 4 mins; tm6 Site: right antecubital; 20:47 Follow up: Response: Medication administered at discharge. tm6 Disposition Summary: 02/21/24 20:10 Discharge Ordered Notes: Location: Home rn Problem: an ongoing problem rn Symptoms: have improved rn Condition: Stable rn Diagnosis - Chest pain, unspecified rn Followup: rn - With: Private Physician - When: As needed - Reason: Recheck today's complaints, Re-evaluation by your physician Discharge Instructions: - Discharge Summary Sheet rn - Nonspecific Chest Pain, Adult rn Forms: - Medication Reconciliation Form rn - Antibiotic rn triage - Prescription Opioid Use rn - Patient Portal Instructions rn - Leadership Thank You Letter rn Signatures: Dispatcher [employer] Nazanin Camacho RN RN Carmine Ibrahim MD MD rn Masterson, Tawney, RN RN tm6 Becky Marshall, RN RN al5
[2024-02-21] MEDS ORDERED: MORPHINE 2 MG/ML SYR ONE (20:37)
[2024-02-21 20:59] VITALS: BP 138/105; TEMP 97.7; O2SAT 100
== END 2024-02-21 20:48 | disposition home or self-care (01) ==
LOC: ER 17:59
DX: R07.9 Chest pain, unspecified (principal); F41.9 Anxiety disorder, unspecified; I25.2 Old myocardial infarction; Z95.818 Presence of other cardiac implants and grafts
CPT/HCPCS: 85025; 80048; 36415; 84484; 83880; 71045; 99284; J2270; 93005

== ENCOUNTER 2024-03-01 22:02 | Inpatient (IN) | payer OTHER ==
--- OUTSIDE RECORDS SUMMARY | 2024-03-01 22:22 | XMS REPORT | Continuity of Care Document ---
Author Name Unknown Address [address] [facility] [address] [place] [address] [facility] thconnect Address [address] [facility] [address] [place] [address] Support Name Relationship Address Phone RACHEL CASH Father Unknown Unavailable PHYSICIAN, NO Primary Care Physician Unknown Unav ailable MD MORA POLLOCK A Emergency Provider [address] [place] [address] JAN COX natural parent [address] [address] MD SHERIDAN MCMANUS Emergency Provider [facility], [place] [address] CHARITY ROCA Guarantor [address] [place] [address] MD RIDDHI [place] [address] MD AN IRIZARRY Emergency Provider [facility], [place] [address] MD CARLOS SOLANO A Primary Care Physician [address] [facility] 3 [place] [address] OTHER, ENTER NAME IN NOTES Primary Care Physician Unknown Unavailable MD Arelis Navarro Emergency Provider [address] [place] [address] MD SHAN BUSCH Attending Provider [address] [place] [address] PIYUSH JUAREZ parent [address] [place] [address] 1 Personal Relationship Unknown Unavai lable Unavailable Personal Relationship Unknown Unavai lable Leyda Villa Mother Unknown Unavailable Rachel Cox Father [address] [place] [address] one else per patient, No Emergency Contact Unknown Unavailable Rachel Cox Father [address] [place] [address] RACHEL COX F [address] [place] [address] PATIENT, NO ONE ELSE PER Personal Relationship Unknown Unavailable Care Team Providers Care Cereal Supervisor Name Role Phone JOANNE MONTES Primary Care Physician Unavailab FARTUN Bernal Attending Clinician Unavailable JOANNE MONTES Attending Clinician Unavailable GISELLE OSORIO Attending Clinician Unavailable LAB90 Attending Clinician Unavailable COSMO Attending Clinician Unavailable OLIVIA GARCIA Attending Clinician Unavailable Olivia Garcia MD Attending Clinician + [phone] SHERIDAN MCMANUS Attending Clinician UnavailROBERTO Melgar Attending Clinician Unavailable Roberto Richards MD Attending Clinician +[phone] SHAN BUSCH Attending Clinician Unavailable RIDDHI MYLES Attending Clinician Unav robertable AN IRIZARRY Attending Clinician Unavailable NARAYAN NARVAEZ Attending Clinician Unavailable Narayan Narvaez DO Attending Clinician +[phone] Saleem EDWARD Attending Clinician Unavailable Saleem Perez Attending Clinician [phone] BRITTNI PADGETT S Attending Clinician Unavailable Saad Elamya S Attending Clinician [phone] JESÚS MONTERO Attending Clinician Unavailable Leeanne Wise NP Attending Clinician + [phone] Jesús Montero MD Attending Clinician +[phone] FELTON Attending Clinician Unavailable MELIDA LONGORIA Attending Clinician Unavailable Melida Longoria MD Attending Clinician [phone] WIL MCQUEEN Attending Clinician Unavailable Mcqueen JEAN MARIESauln R Attending Clinician + [phone] DEE WANG Attending Clinician Unavaila angel Wang AGILE SCRUM MASTER, Dee Poncho Attending Clinician [phone] Doctor Unassigned, August Attending Clinician U navailCEM Mccullough Attending Clinician Unavailable Cem Choi MD Attending Clinician [phone] Ralph RAMIREZ, Shelley Ayala Attending Clinician +[phone] Mo AGILE SCRUM MASTER, Bal Attending Clinician + [phone] BAL HASSAN Attending Clinician Unavailable Ebviral MEDINAP, Tremaine Attending Clinician [phone] TREMAINE BECERRA Attending Clinician Unavailable LEEANNE WISE Attending Clinician Unavailable MORA POLLOCK Attending Clinician Unavailable Claudia MEDINAP, Best Odonnell Attending Clinician [phone] BEST TAYLOR Attending Clinician Unavailable Sallie RAMIREZ, Marbella Carnes Attending Clinician Unavailab bailee MEDINAP, Abdias Attending Clinician [phone] ABDIAS ROBERTSON Attending Clinician Unavailable Silver RAMIREZ, Kamryn Ayala Attending Clinician Unavail able Bushra Rios DO Attending Clinician [phone] BUSHRA RIOS Attending Clinician Unavailab SINCERE morocho [...] Unavailable RIDDHI MYLES Admitting Clinician Unav ailable ADEN NARVAEZIP Admitting Clinician Unavailable JESÚS MONTERO Admitting Clinician Unavailable Jesús Montero MD Admitting Clinician [phone] LA NENACHRISTELLE Admitting Clinician Unavailable MELIDA LONGORIA [...] Source [employer] [employer] 94 ON 9 [id number] 2023 00:00:00 [employer] 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 [id number] 2023 00:00:00 2023 00:00:00 [facility] BCBS BLUE ADVANTAGE O [id number] 2020 00:00:00 Problems Condition Name Condition Details [...] Chest pain, unspecifie d type Disease Active 8- 00:00: 00 [facility] Elevated brain natriureti c peptide (BNP) level Elevated brain natriureti c peptide (BNP) level Disease Active 2020-07 0-02 00:00: 00 [facility] Cigarette smoker Cigarette smoker Disease Active 2020-07 0-02 00:00: 00 [facility] Family history of early CAD Family history of early CAD Disease Active 2020-07 0-02 00:00: 00 [facility] Primary hypertensi on Primary hypertensi on Disease Active 2020-07 0-02 00:00: 00 [facility] Elevated brain natriureti c peptide (BNP) level Elevated brain natriureti c peptide (BNP) level Disease Active 2020-07 0- 00:00: 00 [facility] Snores Snores Disease Active 2020-07 0- 00:00: 00 [facility] Chest pain Chest pain Disease Active 2020-07 0-01 00:00: 00 [facility] Morbid obesity with body mass index of 40.0-49.9 Morbid obesity with body mass index of 40.0-49.9 Disease Active 2020-07 0-01 00:00: 00 [facility] No known active problems No known active problems Disease [facility] Allergies, Adverse Reactions, Alerts Allergy Name Allergy Type Status Severity Reaction(s) Onset Date Inactive Date Treating Clinician Comments Source NO KNOWN ALLERGIE S Drug Class Active [facility] Social History Social Habit Start Date Stop Date Quantity Comments Source History of tobacco use 2018-10-27 00:00:00 Cigarette Smoker Kellee Buckley - External Gender identity [facility] Sexual orientation Saleem Buckley - External Alcoholic beverage intake 2024-02-06 00:00:00 2024-02-06 00:00:00 [...] cigarettes/ day from 2 packs per day [facility] Exposure to SARS-CoV-2 (event) 2021-12-30 00:00:00 2022-01-09 16:34:00 Unable to assess [facility] Education - What is the highest level of school you have completed or the highest degree you have received? 2021-04-07 00:00:00 2021-04-07 00:00:00 High school graduate [facility] Sex assigned at 1980 00:00:00 1980 00:00:00 Kellee Davies Smoking Status Start Date Stop Date Source Smokes tobacco daily 2023-10-28 00:00:00 Kellee Davies Unknown if ever smoked [facility] Medications Ordered Medication Name Filled Medication Name Start Date Stop Date Current Medication? Ordering Clinician Indication Dosage Frequency Signature (SIG) Comments Components Source Methylpredn isolone Acetate (Depo-Medro l) 40 mg/ml - Physician Administere d (J1030) 02-05 13:21: 25 No [id number] 40mg 40 mg, Physician Administer ed, ONCE, 1 dose, On Esperanza 02/06/24 at 1145 Kellee pinedo hydrOXYzine Pamoate 50 MG oral Capsule 02-05 11:06: 49 Yes [id number] 50mg Q.5D Take 1 capsule (50 mg total) by mouth 2 times daily as needed for anxiety. Kellee pinedo Lorazepam (ATIVAN) 0.5 MG oral Tablet tablet 01-09 00:00: 00 Yes [id number] .5mg Q.5D take 1 tablet by mouth 2 times daily as needed for anxiety Kellee pinedo Aspirin (Aspirin Low Dose) 81 MG oral Tablet Delayed Response 01-05 00:00: 00 Yes [id number] 81mg QD Take 1 tablet (81 mg total) by mouth daily. Kellee pinedo Atorvastati n Calcium 40 MG oral Tablet 01-05 00:00: 00 Yes [id number] 40mg QD Take 1 tablet (40 mg total) by mouth daily. Kellee pinedo Suvorexant (Belsomra) 20 MG oral Tablet 01-05 00:00: 00 Yes [id number] 1{tbl} QD Take 1 tablet by mouth nightly. Kellee pinedo Clopidogrel Bisulfate (PLAVIX) 75 MG oral Tablet 01-05 00:00: 00 Yes [id number] 75mg QD Take 1 tablet (75 mg total) by mouth daily. Kellee pinedo hydrOXYzine Pamoate 50 MG oral Capsule 12-12 09:19: 23 Yes [id number] 50mg Q.5D Take 1 capsule (50 mg total) by mouth 2 times daily as needed for anxiety. Kellee pinedo Lorazepam (ATIVAN) 0.5 MG oral Tablet tablet 12-12 00:00: 00 Yes [id number] .5mg Q.5D Take 1 tablet (0.5 mg total) by mouth 2 times daily as needed for anxiety. Kellee pinedo Aspirin Low Dose 81 MG oral Tablet Delayed Response 12-05 00:00: 00 Yes [id number] 81mg Take 1 tablet (81 mg total) by mouth daily. Kellee pinedo Atorvastati n Calcium 40 MG oral Tablet 12-05 00:00: 00 Yes [id number] 40mg Take 1 tablet (40 mg total) by mouth daily. Kellee pinedo Clopidogrel Bisulfate (PLAVIX) 75 MG oral Tablet 12-05 00:00: 00 Yes [id number] 75mg Take 1 tablet (75 mg total) by mouth daily. Kellee pinedo Mometasone Furo-Formot camelia Fum (Dulera) 200-5 MCG/ACT inhalation Aerosol 12-05 00:00: 00 Yes TWICE DAILY Kellee pinedo Ferrous Sulfate 325 (65 Fe) MG oral Tablet 12-04 00:00: 00 Yes [id number] 325mg QD Take 1 tablet (325 mg total) by mouth daily (with breakfast) . Kellee pinedo Vitamin D, Ergocalcife rol, 1.25 MG (79693 UT) oral Capsule 12-04 00:00: 00 Yes [id number] 90225D Q1W Take 1 capsule (50,000 units total) by mouth once a week. Kellee pinedo Mirtazapine 45 MG oral Tablet 12-02 10:49: 07 12-02 00:00 :00 No [id number] 45mg Take 1 tablet (45 mg total) by mouth nightly. Kellee pinedo hydrOXYzine Pamoate 50 MG oral Capsule 12-02 10:49: 04 Yes [id number] 50mg Q.5D Take 1 capsule (50 mg total) by mouth 2 times daily as needed for anxiety. Kellee pinedo Ascorbic Acid 500 MG oral Tablet 12-02 10:48: 55 12-02 00:00 :00 No 50mg Take 50 mg by mouth. Kellee pinedo Suvorexant (Belsomra) 20 MG oral Tablet 12-02 00:00: 00 Yes [id number] 1{tbl} Take 1 tablet by mouth nightly. Kellee pinedo Lorazepam 1 MG oral Tablet 12-02 00:00: 00 12-12 00:00 :00 No [id number] 1mg Q.5D Take 1 tablet (1 mg total) by mouth 2 times daily as needed for anxiety. Kellee pinedo Doxepin HCl 3 MG oral Tablet 11-27 00:00: 00 Yes [id number] 1{tbl} QD TAKE 1 TABLET BY MOUTH EVERY DAY AT NIGHT Kellee pinedo Aripiprazol e 5 MG oral Tablet 11-27 00:00: 00 Yes [id number] 5mg QD TAKE 1 TABLET (5 MG TOTAL) BY MOUTH DAILY. Kellee pinedo Mirtazapine 45 MG oral Tablet 10-28 13:20: 59 Yes [id number] 45mg Take 1 tablet (45 mg total) by mouth nightly. Kellee pinedo Ascorbic Acid 500 MG oral Tablet 10-28 13:20: 47 Yes 50mg Take 50 mg by mouth. Kellee pinedo hydrOXYzine Pamoate 50 MG oral Capsule 10-28 13:20: 47 10-28 00:00 :00 No [id number] 50mg Q.5D Take 1 capsule (50 mg total) by mouth every 4 to 6 hours as needed. Kellee pinedo Sertraline HCl 150 MG oral Capsule 10-28 13:20: 03 10-28 00:00 :00 No 150mg Take 150 mg by mouth daily. Kellee pinedo Doxepin HCl 3 MG oral Tablet 10-28 00:00: 00 Yes [id number] 1{tbl} Take 1 tablet by mouth nightly. Kellee pinedo Aripiprazol e 5 MG oral Tablet 10-28 00:00: 00 Yes [id number] 5mg Take 1 tablet (5 mg total) by mouth daily. Kellee pinedo Suvorexant 10 MG oral Tablet 10-28 00:00: 00 12-02 00:00 :00 No [id number] 1{tbl} Take 1 tablet by mouth nightly. Kellee pinedo Sertraline HCl 50 MG oral Tablet 10-26 00:00: 00 Yes [id number] Kellee pinedo HYDROcodone -acetaminop hen (NORCO) 10-325 mg tablet 1 tablet 10-10 06:15: 00 10-10 05:25 :00 No 1{tbl} 1 tablet, Oral, ONCE NOW, 1 dose, On Sat10/11/23 at 0115, [facility] iopamidol (ISOVUE 370-500 mL) injection 100 mL 10-10 05:00: 00 10-10 05:00 :00 No [id number] 100mL 100 mL, Intravenou s, ONCE, 1 dose, On Sat10/11/23 at 0000, Routine [facility] ketorolac (TORADOL) injection 30 mg 10-10 04:30: 00 10-10 03:29 :00 No 30mg 30 mg, Slow IV Push, ONCE, 1 dose, On Esperanza 10/10/23 at 2330, Routine [facility] NaCl 0.9% (NS) IV infusion 1,000 mL 10-10 04:15: 00 10-10 05:18 :00 No 1000mL at 999 mL/hr, Intravenou s, ONCE, 1 dose, On Sat10/10/23 at 2315, Routine [facility] ondansetron (ZOFRAN (PF)) injection 4 mg 10-10 04:00: 00 10-10 03:54 :00 No 4mg 4 mg, Slow IV Push, ONCE, 1 dose, On Sat10/10/23 at 2300, [facility] morpHINE (4 mg/mL) injection 4 mg 10-10 04:00: 00 10-10 03:54 :00 No 4mg 4 mg, Slow IV Push, ONCE, 1 dose, On [place]per[place] 10/10/23 at 2300, STAT [facility] traMADoL (ULTRAM) 50 mg tablet 10-10 00:00: 00 Yes [id number] 50mg Take 1 tablet by mouth every 6 (six) hours as needed for Pain (scale 7-10). Indication s: acute pain [facility] phenazopyri dine 200 mg tablet 10-10 00:00: 00 Yes [id number] 200mg Take 1 tablet by mouth in the morning and 1 tablet at noon and 1 tablet in the evening. [facility] ondansetron (ZOFRAN) 4 mg tablet 05 00:00: 00 Yes [id number] 4mg Take 1 tablet by mouth every 8 (eight) hours as needed for Nausea and Vomiting (N/V). [facility] ketorolac 10 mg tablet 05 00:00: 00 Yes [id number] 10mg Take 1 tablet by mouth every 6 (six) hours as needed for Pain (scale 7-10). [facility] Sertraline HCl 100 MG oral Tablet 10-09 00:00: 00 Yes [id number] 100mg Take 1 tablet (100 mg total) by mouth every morning. Kellee pinedo acetaminoph en (TYLENOL) tablet 975 mg 2022-07 04:15: 00 07-02 03:11 :00 No 975mg 975 mg, Oral, ONCE, 1 dose, On Sat07/01/23 at 2215, [facility] dicyclomine (BENTYL) tablet 20 mg 2022-07 03:15: 00 07-02 03:11 :00 No 20mg 20 mg, Oral, ONCE, 1 dose, On Sat07/01/23 at 2115, [facility] ketorolac (TORADOL) injection 30 mg 2022-07 03:15: 00 07-02 02:32 :00 No 30mg 30 mg, Slow IV Push, ONCE, 1 dose, On Sat07/01/23 at 2115, Routine [facility] ondansetron (ZOFRAN (PF)) injection 4 mg 2022-07 03:00: 00 07-02 02:03 :00 No 4mg 4 mg, Slow IV Push, ONCE, 1 dose, On Sat07/01/23 at 2100, [facility] NaCl 0.9% (NS) bolus infusion 1,000 mL 2022-07 03:00: 00 07-02 04:10 :00 No 1000mL at 999 mL/hr, 1,000 mL, IV Infusion, ONCE, 1 dose, On Sat07/01/23 at 2100, STAT [facility] dicyclomine 20 mg tablet 2022-07 00:00: 00 Yes [id number] 20mg Take 1 tablet by mouth 4 (four) times daily. [facility] ondansetron 4 mg disintegrat ing tablet 2022-07 00:00: 00 Yes [id number] 4mg Take 1 tablet by mouth every 4 (four) hours as needed for Nausea and Vomiting (N/V). [facility] Alprazolam 1 MG oral Tablet 2022-07 00:00: 00 12-12 00:00 :00 No [id number] 2mg Take 2 tablets (2 mg total) by mouth 2 times daily. Kellee pinedo Pantoprazol e Sodium 20 MG oral Tablet Delayed Response 2022-07 00:00: 00 12-02 00:00 :00 No Take by mouth. Kellee pinedo ketorolac (TORADOL) injection 15 mg 2022-07 01:00: 00 05-10 00:09 :00 No 15mg 15 mg, Slow IV Push, ONCE, 1 dose, On Sat05/09/23 at 2000, [facility] proCHLORper azine (COMPAZINE) injection 5 mg 2022-07 23:30: 00 05-09 22:48 :00 No 5mg 5 mg, Slow IV Push, ONCE, 1 dose, On Sat05/09/23 at 1830, [facility] diphenhydrA MINE (BENADRYL) injection 25 mg 2022-07 22:45: 00 05-09 22:48 :00 No 25mg 25 mg, Slow IV Push, ONCE, 1 dose, On Sat05/09/23 at 1745, STAT [facility] HYDROcodone -acetaminop hen (NORCO) 10-325 mg tablet 1 tablet 2022-07 0-25 02:00: 00 05-01 01:04 :00 No 1{tbl} 1 tablet, Oral, ONCE, 1 dose, On Sat04/30/23 at 2100, Routine [facility] iopamidol (ISOVUE 370-500 mL) injection 100 mL 2022-07 00:45: 00 05-01 00:45 :00 No [id number] 100mL 100 mL, Intravenou s, ONCE, 1 dose, On Sat04/30/23 at 1945, Routine [facility] NaCl 0.9% (NS) bolus infusion 1,000 mL 2022-07 00:00: 00 05-01 00:45 :00 No 1000mL at 999 mL/hr, 1,000 mL, IV Piggyback, ONCE, 1 dose, On Sat04/30/23 at 1900, STAT [facility] proCHLORper azine (COMPAZINE) injection 5 mg 2022-07 23:45: 00 04-30 23:09 :00 No 5mg 5 mg, Slow IV Push, ONCE, 1 dose, On Sat04/30/23 at 1845, [facility] diphenhydrA MINE (BENADRYL) injection 25 mg 2022-07 23:00: 00 04-30 23:09 :00 No 25mg 25 mg, Slow IV Push, ONCE, 1 dose, On Sat04/30/23 at 1800, STAT [facility] dicyclomine 20 mg tablet 2022-07 00:00: 00 07-01 00:00 :00 No [id number] 20mg Take 1 tablet by mouth 4 (four) times daily. [facility] acetaminoph en (TYLENOL) tablet 1,000 mg 2022-07 0 02:45: 00 04-17 02:43 :00 No 1000mg 1,000 mg, Oral, ONCE, 1 dose, On Sat04/16/23 at 2145[facility] ([facility]FR[facility] (PF)) [facility] 4 mg 2022-07 0- 03:15: 00 04-09 02:13 :00 No 4mg 4 mg, Slow IV Push, ONCE, 1 dose, On Sat04/08/23 at 2215, [facility] dicyclomine (BENTYL) tablet 20 mg 2022-07 03:15: 00 04-09 02:16 :00 No 20mg 20 mg, Oral, ONCE, 1 dose, On Sat04/08/23 at 2215, Routine [facility] ondansetron (ZOFRAN (PF)) injection 4 mg 2022-07 23:45: 00 04-08 23:16 :00 No 4mg 4 mg, Slow IV Push, ONCE, 1 dose, On Sat04/08/23 at 1845, [facility] morpHINE (2 mg/mL) injection 4 mg 2022-07 23:45: 00 04-08 23:45 :00 No 4mg 4 mg, Slow IV Push, ONCE, 1 dose, On Sat04/08/23 at 1845, STAT [facility] ondansetron 4 mg disintegrat ing tablet 2022-07 00:00: 00 07-01 00:00 :00 No [id number] 4mg Take 1 tablet by mouth every 8 (eight) hours as needed for Nausea and Vomiting (N/V). [facility] dicyclomine 20 mg tablet 2022-07 00:00: 00 04-30 00:00 :00 No [id number] 20mg Take 1 tablet by mouth 4 (four) times daily. [facility] acetaminoph en (TYLENOL) tablet 1,000 mg 03-10 04:30: 00 03-10 04:29 :00 No 1000mg 1,000 mg, Oral, ONCE, 1 dose, On 03/09/23 at 2330, [facility] iopamidol (ISOVUE 370-500 mL) injection 85 mL 03-10 04:30: 00 03-10 04:30 :00 No [id number] 85mL 85 mL, Intravenou s, ONCE, 1 dose, On 03/09/23 at 2330, Routine [facility] FENTanyl PF (SUBLIMAZE (PF)) injection 75 mcg 03-10 04:00: 00 03-10 02:58 :00 No 75ug 75 mcg, Slow IV Push, ONCE, 1 dose, On 03/09/23 at 2300, STAT [facility] NaCl 0.9% (NS) IV infusion 1,000 mL 03-10 03:00: 00 Yes 1000mL at 20 mL/hr, IV Infusion, CONTINUOUS , Starting on 03/09/23 at 2200, Until Discontinu ed, Routine [facility] ondansetron (ZOFRAN (PF)) injection 4 mg 03-10 02:00: 00 03-10 02:01 :00 No 4mg 4 mg, Slow IV Push, ONCE, 1 dose, On 03/09/23 at 2100, [facility] morpHINE (4 mg/mL) injection 4 mg 03-10 02:00: 00 03-10 02:01 :00 No 4mg 4 mg, Slow IV Push, ONCE, 1 dose, On 03/09/23 at 2100, STAT [facility] polyethylen e glycol 3350 (MIRALAX) 17 gram powder 03-09 00:00: 00 Yes [id number] 1{packe t} Take 1 Packet by mouth once daily as needed for Constipati on. [facility] Simethicone 125 mg 03-09 00:00: 00 Yes [id number] 125mg Take 1 capsule by mouth after meals and at bedtime as needed for Gas. [facility] iopamidol (ISOVUE 370-500 mL) injection 100 mL 03-02 06:15: 00 03-02 06:15 :00 No [id number] 100mL 100 mL, Intravenou s, ONCE, 1 dose, On 03/02/23 at 0115, Routine [facility] NaCl 0.9% (NS) IV infusion 1,000 mL 03-02 05:15: 00 Yes 1000mL at 999 mL/hr, Intravenou s, CONTINUOUS , Starting on 03/02/23 at 0015, Until Discontinu ed, Routine [facility] ketorolac (TORADOL) injection 30 mg 03-02 05:15: 00 03-02 04:20 :00 No 30mg 30 mg, Slow IV Push, ONCE, 1 dose, On 03/02/23 at 0015, Routine [facility] ondansetron (ZOFRAN (PF)) injection 4 mg 03-02 05:00: 00 03-02 05:24 :00 No 4mg 4 mg, Slow IV Push, ONCE, 1 dose, On 03/02/23 at 0000, [facility] morpHINE (4 mg/mL) injection 4 mg 03-02 05:00: 00 03-02 05:24 :00 No 4mg 4 mg, Slow IV Push, ONCE, 1 dose, On 03/02/23 at 0000, STAT [facility] ondansetron (ZOFRAN (PF)) injection 4 mg 03-02 04:15: 00 03-02 04:21 :00 No 4mg 4 mg, Slow IV Push, ONCE, 1 dose, On Sat03/01/23 at 2315[facility] On[facility] 4 MG oral Tablet 03-02 00:00: 00 Yes [id number] 4mg Q.[id number] 3D Take 1 tablet (4 mg total) by mouth every 8 hours as needed. Kellee Buckley - Shobha pinedo dicyclomine 20 mg tablet 03-02 00:00: 00 04-30 00:00 :00 No [id number] 20mg Take 1 tablet by mouth every 6 (six) hours as needed for Abdominal pain. [facility] metoclopram tracy HCl (REGLAN) injection 10 mg 02-18 06:45: 00 02-18 06:43 :00 No 10mg 10 mg, Slow IV Push, ONCE, 1 dose, On Sat02/18/23 at 0145, [facility] morpHINE (4 mg/mL) injection 4 mg 02-18 05:30: 00 02-18 05:28 :00 No 4mg 4 mg, Slow IV Push, ONCE, 1 dose, On Sat02/18/23 at 0030, STAT [facility] ondansetron (ZOFRAN (PF)) injection 4 mg 02-18 05:30: 00 02-18 05:28 :00 No 4mg 4 mg, Slow IV Push, ONCE, 1 dose, On Sat02/18/23 at 0030, [facility] NaCl 0.9% (NS) bolus infusion 1,000 mL 02-18 05:30: 00 02-18 05:15 :00 No 1000mL at 999 mL/hr, 1,000 mL, IV Infusion, ONCE, 1 dose, On Sat02/18/23 at 0030, STAT [facility] proMETHazin e (PHENERGAN) 25 mg in NaCl 0.9% (NS) 50 mL IV piggyback 02-18 04:30: 00 02-18 04:28 :00 No 25mg 25 mg, IV Piggyback, ONCE, 1 dose, On Sat02/17/23 at 2330, [facility] proMETHazin e 25 mg tablet 02-18 00:00: 00 Yes [id number] 25mg Take 1 tablet by mouth every 6 (six) hours as needed for Nausea and Vomiting (N/V). [facility] escitalopra m oxalate (LEXAPRO) 5 mg tablet 02-17 16:23: 24 Yes 10mg Take 2 tablets by mouth at bedtime. [facility] topiramate (TOPAMAX) 200 mg tablet 02-17 16:23: 24 Yes 200mg Take 1 tablet by mouth every evening. [facility] bupropion HCl (WELLBUTRIN ORAL) 02-17 16:23: 24 Yes 150mg Take 150 mg by mouth every morning. [facility] OLANZapine (ZYPREXA) 15 mg tablet 02-17 16:23: 24 Yes 15mg Take 1 tablet by mouth every evening. [facility] ALPRAZOLAM ORAL 02-17 16:23: 24 Yes 2mg Take 2 mg by mouth in the morning and 2 mg in the evening. [facility] melatonin 10 mg Tab 02-17 16:23: 24 Yes 1{tbl} Take 1 tablet by mouth at bedtime. [facility] trazodone HCl (TRAZODONE ORAL) 02-17 16:23: 24 Yes 400mg Take 400 mg by mouth at bedtime. [facility] lactated ringers IV infusion 1,000 mL 02-17 02:15: 00 02-17 22:14 :00 No 1000mL at 100 mL/hr, 1,000 mL, IV Infusion, CONTINUOUS , Starting on 02/16/23 at 2115, Until 02/17/23 at 1714, Routine [facility] traZODone (DESYREL) tablet 400 mg 02-17 02:00: 00 Yes 400mg 400 mg, Oral, QHS, First dose on 02/16/23 at 2100, Until Discontinu ed [facility] melatonin (MELATIN) tablet 9 mg 02-17 02:00: 00 Yes 9mg 9 mg, Oral, QHS, First dose on 02/16/23 at 2100, Until Discontinu ed [facility] morpHINE (2 mg/mL) injection 2 mg 02-17 01:07: 50 03-01 01:06 :50 No 2mg 2 mg, Slow IV Push, Q4HPRN, Starting on 02/16/23 at 2006, Until [place]peranza 02/28/23 at 2005, Routine, Pain (scale 7-10) [facility] OLANZapine (ZyPREXA) tablet 15 mg 02-16 22:00: 00 Yes 15mg 15 mg, Oral, QPM, First dose on 02/16/23 at 1700, Until Discontinu ed, Routine [facility] buPROPion XL (WELLBUTRIN XL) tablet 150 mg 02-16 14:00: 00 Yes 150mg 150 mg, Oral, DAILY, First dose on 02/16/23 at 0900, Until Discontinu ed [facility] enoxaparin (LOVENOX) injection 40 mg 02-16 14:00: 00 Yes 40mg 40 mg, Subcutaneo us, DAILY, First dose on Sat02/16/23 at 0900, Until Discontinu ed, Routine [facility] methocarbam oL (ROBAXIN) tablet 500 mg 02-16 06:04: 59 Yes 500mg 500 mg, Oral, Q6HPRN, Starting on 02/16/23 at 0104, Until Discontinu ed, Routine, Muscle Spasms [facility] ALPRAZolam (XANAX) tablet 2 mg 02-16 06:03: 54 Yes 2mg 2 mg, Oral, TIDPRN, Starting on 02/16/23 at 0103, Until Discontinu ed, Anxiety [facility] lactated ringers IV infusion 1,000 mL 02-16 03:15: 00 02-16 23:14 :00 No 1000mL at 100 mL/hr, 1,000 mL, IV Infusion, CONTINUOUS , Starting on Sat02/15/23 at 2215, Until 02/16/23 at 1814, Routine [facility] morpHINE (2 mg/mL) injection 2 mg 02-16 03:07: 02 02-17 01:08 :14 No 2mg 2 mg, Slow IV Push, Q4HPRN, Starting on Sat02/15/23 at 2207, Until 02/16/23 at 2008, Routine, Pain (scale 7-10) [facility] traMADoL (ULTRAM) tablet 50 mg 02-16 03:06: 59 02-18 03:05 :59 No 50mg 50 mg, Oral, Q8HPRN, Starting on Sat02/15/23 at 2206, Until Sat02/17/23 at 2205, Routine, Pain (scale 4-6) [facility] acetaminoph en (TYLENOL) tablet 1,000 mg 02-16 03:06: 50 Yes 1000mg 1,000 mg, Oral, Q6HPRN, Starting on Sat02/15/23 at 2206, Until Discontinu ed, Routine, Pain (scale 1-3), Temp > 38 C [facility] ALPRAZolam (XANAX) 1 mg tablet 02-16 01:09: 19 02-15 00:00 :00 No 1mg Take 1 tablet by mouth in the morning and 1 tablet in the evening. [facility] iopamidol (ISOVUE 370-500 mL) injection 80 mL 02-16 00:30: 00 02-16 00:30 :00 No [id number] 80mL 80 mL, Intravenou s, ONCE, 1 dose, On Sat02/15/23 at 1930, Routine [facility] lactated ringers IV infusion 1,000 mL 02-16 00:00: 00 02-16 03:07 :30 No [id number] 1000mL at 500 mL/hr, 1,000 mL, IV Infusion, CONTINUOUS , Starting on Sat02/15/23 at 1900, Until Sat02/15/23 at 2207, [facility] FENTanyl PF (SUBLIMAZE (PF)) injection 75 mcg 02-15 23:45: 00 02-15 23:13 :00 No [id number] 75ug 75 mcg, Slow IV Push, ONCE, 1 dose, On Sat02/15/23 at 1845, Routine [facility] dicyclomine (BENTYL) injection 20 mg 02-15 22:15: 00 02-15 21:46 :00 No [id number] 20mg 20 mg, Intramuscu lar, ONCE NOW, 1 dose, On Sat02/15/23 at 1715, Routine [facility] LORazepam (ATIVAN) injection 1 mg 02-15 21:45: 00 02-15 21:46 :00 No [id number] 1mg 1 mg, Slow IV Push, ONCE, 1 dose, On Sat02/15/23 at 1645, STAT [facility] ondansetron (ZOFRAN (PF)) injection 4 mg 02-15 21:45: 00 02-15 21:46 :00 No [id number] 4mg 4 mg, Slow IV Push, ONCE, 1 dose, On Sat02/15/23 at 1645, [place] [facility] HYDROcodone -acetaminop hen (NORCO) 10-325 mg tablet 1 tablet 02-15 20:15: 00 02-15 19:52 :00 No [id number] 1{tbl} 1 tablet, Oral, ONCE, 1 dose, On Sat02/15/23 at 1515, Routine [facility] Melatonin 1 mg tablet 02-15 20:08: 23 02-15 00:00 :00 No 10mg Take 10 tablets by mouth every evening. [facility] trazodone HCl (DESYREL ORAL) 02-15 20:06: 33 02-15 00:00 :00 No 200mg Take 200 mg by mouth every evening. [facility] OLANZapine (ZYPREXA) 2.5 mg tablet 02-15 20:05: 48 02-15 00:00 :00 No 2.5mg Take 1 tablet by mouth in the morning and 1 tablet in the evening. [facility] hydrOXYzine (VISTARIL) 50 mg capsule 02-15 20:03: 04 02-15 00:00 :00 No 50mg Take 1 capsule by mouth every 4 (four) hours as needed for Itching. q 4-6 hours as needed [facility] dicyclomine (BENTYL) tablet 20 mg 02-15 19:30: 00 02-15 19:52 :00 No [id number] 20mg 20 mg, Oral, ONCE, 1 dose, On Sat02/15/23 at 1430, [place] [facility] ibuprofen (IBU) tablet 800 mg 02-15 19:30: 00 02-15 19:52 :00 No [id number] 800mg 800 mg, Oral, ONCE, 1 dose, On Sat02/15/23 at 1430, [facility] losartan 50 mg tablet 02-15 13:44: 36 02-15 00:00 :00 No 50mg Take 1 tablet by mouth in the morning. [facility] Cowley-3-DHA -EPA-Fish Oil (FISH OIL) 1,000 mg (120 mg-180 mg) Cap 02-15 13:44: 15 02-15 00:00 :00 No 1000mg Take 1,000 mg by mouth daily. [facility] methocarbam oL 750 mg tablet 02-15 13:43: 47 02-15 00:00 :00 No 750mg Take 750 mg by mouth 3 (three) times daily. [facility] FENTanyl PF (SUBLIMAZE (PF)) injection 50 mcg 01-10 00:45: 00 01-09 23:46 :00 No 50ug 50 mcg, Slow IV Push, ONCE, 1 dose, On Sat01/09/22 at 1945, Routine [facility] ketorolac (TORADOL) injection 30 mg 01-09 23:45: 00 01-09 22:48 :00 No 30mg 30 mg, Slow IV Push, ONCE, 1 dose, On Sat01/09/22 at 1845, Routine [facility] aspirin chewable tablet 243 mg 12-14 14:00: 00 Yes 243mg 243 mg, Oral, DAILY, First dose on Sat12/14/21 at 0900, Until Discontinu ed, Routine [facility] ketorolac (TORADOL) injection 15 mg 12-14 08:15: 00 12-14 07:11 :00 No 15mg 15 mg, Slow IV Push, ONCE, 1 dose, On Sat12/14/21 at 0315, [place] [facility] morpHINE (4 mg/mL) injection 4 mg 12-14 05:45: 00 12-14 04:52 :00 No 4mg 4 mg, Slow IV Push, ONCE, 1 dose, On Sat22 at 0045, STAT [facility] cefTRIAXone (ROCEPHIN) 1,000 mg in NaCl 0.9% (NS) 50 mL MINI-BAG 12-14 05:45: 00 12-14 05:30 :00 No 1000mg 1,000 mg, IV Piggyback, ONCE, 1 dose, On [place] 12/14/21 at 0045, Administer over 30 Minutes, 50 mL
Reas on for Anti-Infec tive: Documented Infection< br>Documen kaushik Infection Site: Urine
D uration of Therapy: Other (see Comments) [facility] NaCl 0.9% (NS) bolus infusion 1,000 mL 12-14 05:45: 00 12-14 07:20 :00 No 1000mL at 999 mL/hr, 1,000 mL, IV Infusion, ONCE, 1 dose, On [place] 12/14/21 at 0045, [place] [facility] ondansetron (ZOFRAN (PF)) injection 4 mg 12-14 04:45: 00 12-14 03:50 :00 No 4mg 4 mg, Slow IV Push, ONCE, 1 dose, On Sat12/13/21 at 2345, [facility] [facility] FENTanyl PF (SUBLIMAZE (PF)) injection 50 mcg 12-14 04:45: 00 12-14 03:50 :00 No 50ug 50 mcg, Slow IV Push, ONCE, 1 dose, On Sat12/13/21 at 2345, Routine [facility] ALPRAZolam (XANAX) 1 mg tablet 12-14 02:22: 13 Yes 1mg Take 1 mg by mouth 2 (two) times daily. [facility] naproxen 500 mg tablet 12-14 00:00: 00 02-15 00:00 :00 No [id number] 500mg Take 1 tablet by mouth 2 (two) times daily with meals. [facility] cefpodoxime 200 mg tablet 12-14 00:00: 00 12-22 04:59 :00 No [id number] 200mg Take 1 tablet by mouth 2 (two) times daily for 7 days. [facility] LORazepam (ATIVAN) injection 1 mg 11-12 05:00: 00 11-12 04:01 :00 No 1mg 1 mg, Slow IV Push, ONCE, 1 dose, On 11/12/21 at 0000, STAT [facility] ketorolac (TORADOL) injection 30 mg 11-12 03:30: 00 11-12 02:26 :00 No 30mg 30 mg, Slow IV Push, ONCE, 1 dose, On 11/11/21 at 2230, Routine
bridge crew member approving Restricted medication : DEE WANG [facility] nitroglycer in (NITROSTAT) sublingual tablet 0.4 mg 11-12 03:30: 00 11-12 02:26 :00 No .4mg 0.4 mg, Sublingual , ONCE, 1 dose, On 11/11/21 at 2230, [facility] [facility] aspirin E.C. (ECOTRIN) tablet 325 mg 11-12 03:30: 00 11-12 02:25 :00 No 325mg 325 mg, Oral, ONCE, 1 dose, On 11/11/21 at 2230, STAT [facility] morpHINE (4 mg/mL) injection 4 mg 11-12 02:30: 00 11-12 01:40 :00 No 4mg 4 mg, Slow IV Push, ONCE, 1 dose, On 11/11/21 at 2130, STAT [facility] ondansetron (ZOFRAN (PF)) injection 4 mg 11-12 02:30: 00 11-12 01:40 :00 No 4mg 4 mg, Slow IV Push, ONCE, 1 dose, On 11/11/21 at 2130, [facility] NaCl 0.9% (NS) bolus infusion 1,000 mL 11-12 02:30: 00 11-12 02:30 :00 No 1000mL at 999 mL/hr, 1,000 mL, IV Infusion, ONCE, 1 dose, On Sat11/11/21 at 2130, [facility] [facility] hydrOXYzine 50 mg tablet 07 00:00: 00 Yes [id number] 50mg Take 1 tablet by mouth every 8 (eight) hours as needed for Anxiety. [facility] ketorolac (TORADOL) injection 30 mg 09-12 05:45: 00 09-12 04:54 :00 No 30mg 30 mg, Slow IV Push, ONCE, 1 dose, On Sat09/11/21 at 2345, Routine
bridge crew member approving Restricted medication : DEE WANG [facility] cefTRIAXone (ROCEPHIN) 1,000 mg in NaCl 0.9% (NS) 50 mL MINI-BAG 09-12 03:45: 00 09-12 03:41 :00 No 1000mg 1,000 mg, IV Piggyback, ONCE, 1 dose, On Sat09/11/21 at 2145, Administer over 30 Minutes, 50 mL
Reas on for Anti-Infec tive: Documented Infection< br>Documen kaushik Infection Site: Urine
D uration of Therapy: 7 days [facility] ondansetron (ZOFRAN (PF)) injection 4 mg 09-12 03:15: 00 09-12 02:39 :00 No 4mg 4 mg, Slow IV Push, ONCE, 1 dose, On Sat09/11/21 at 2115, [place] [facility] morpHINE injection 4 mg 09-12 03:15: 00 09-12 02:39 :00 No 4mg 4 mg, Slow IV Push, ONCE, 1 dose, On Sat09/11/21 at 2115, STAT [facility] iopamidol (ISOVUE 370-500 mL) injection 120 mL 09-12 02:45: 00 09-12 03:00 :00 No [id number] 120mL 120 mL, Intravenou s, ONCE, 1 dose, On Sat09/11/21 at 2100, Routine [facility] sodium chloride (NS) injection 5 mL 09-12 01:33: 26 Yes 5mL 5 mL, Intravenou s, PRN, Starting on Sat09/11/21 at 1933, Until Discontinu ed, Routine, IV line flushing [facility] ibuprofen 600 mg tablet 09-11 00:00: 00 02-15 00:00 :00 No [id number] 600mg Take 1 tablet by mouth every 6 (six) hours as needed for Pain (scale 4-6). [facility] cefdinir 300 mg capsule 09-11 00:00: 00 09-19 04:59 :00 No [id number] 300mg Take 1 capsule by mouth 2 (two) times daily for 7 days. [facility] HYDROcodone -acetaminop hen (NORCO) 10-325 mg tablet 1 tablet 08-15 09:00: 00 08-15 07:59 :00 No 1{tbl} 1 tablet, Oral, ONCE, 1 dose, On Sat08/15/21 at 0300, Routine [facility] FENTanyl PF (SUBLIMAZE (PF)) injection 75 mcg 08-15 07:30: 00 08-15 06:42 :00 No 75ug 75 mcg, Intramuscu lar, ONCE, 1 dose, On Sat08/15/21 at 0130, Routine [facility] methocarbam oL (ROBAXIN) 500 mg tablet 08-15 00:00: 00 Yes [id number] 500mg Take 1 tablet by mouth every 6 (six) hours as needed for Pain (scale 7-10) (MUSCLE SPASM). [facility] traMADoL (ULTRAM) 50 mg tablet 08-15 00:00: 00 Yes [id number] 50mg Take 1 tablet by mouth every 6 (six) hours as needed for Pain (scale 7-10). Indication s: acute pain [facility] Nitrofurant oin&Nit. Macrocryst (MACROBID) 100 mg capsule 2022-0 2-08 00:00: 00 02-15 00:00 :00 No [id number] 100mg Take 1 capsule by mouth 2 (two) times daily. [facility] morpHINE injection 4 mg 2020-07 08:30: 00 05-28 07:50 :00 No 4mg 4 mg, Slow IV Push, ONCE, 1 dose, On 05/28/21 at 0230, [place] [facility] maalox:diph enhydrAMINE :lidocaine 2 % viscous 1:1:1 ([facility]) oral suspension 15 mL 2020-07 08:00: 00 05-28 07:04 :00 No 15mL 15 mL, Oral, ONCE, 1 dose, On 05/28/21 at 0200, Routine [facility] FENTanyl PF (SUBLIMAZE (PF)) injection 50 mcg 2020-07 07:00: 00 05-28 06:02 :00 No 50ug 50 mcg, Slow IV Push, ONCE, 1 dose, On 05/28/21 at 0100, STAT [facility] famotidine (PEPCID (PF)) injection 20 mg 2020-07 07:00: 00 05-28 06:01 :00 No 20mg 20 mg, Slow IV Push, ONCE, 1 dose, On 05/28/21 at 0100, [place] [facility] famotidine 20 mg tablet 2020-07 00:00: 00 06-13 05:59 :00 No [id number] 20mg Take 1 tablet by mouth 2 (two) times daily for 15 days. [facility] escitalopra m oxalate (LEXAPRO) tablet 10 mg 2020-07 0-03 02:00: 00 Yes 10mg 10 mg, Oral, QHS, First dose on 04/08/21 at 2100, Until Discontinu ed, Routine [facility] aspirin 81 mg chewable tablet 2020-07 0-03 00:00: 00 05-10 04:59 :00 No [id number] 81mg Take 1 tablet by mouth daily for 30 days. [facility] traZODone (DESYREL) tablet 200 mg 2020-07 22:00: 00 Yes 200mg 200 mg, Oral, QPM, First dose on 04/08/21 at 1700, Until Discontinu ed [facility] topiramate (TOPAMAX) tablet 200 mg 2020-07 22:00: 00 Yes 200mg 200 mg, Oral, QPM, First dose on 04/08/21 at 1700, Until Discontinu ed, Routine
bridge crew member approving Restricted medication : ALEXEY ALEGRE [facility] OLANZapine (ZyPREXA) tablet 15 mg 2020-07 22:00: 00 Yes 15mg 15 mg, Oral, QPM, First dose on 04/08/21 at 1700, Until Discontinu ed, Routine [facility] melatonin (MELATIN) tablet 9 mg 2020-07 22:00: 00 Yes 9mg 9 mg, Oral, QPM, First dose on 04/08/21 at 1700, Until Discontinu ed [facility] methocarbam oL 750 mg tablet 2020-07 17:45: 33 Yes 750mg Take 750 mg by mouth 3 (three) times daily. [facility] Cowley-3-DHA -EPA-Fish Oil (FISH OIL) 1,000 mg (120 mg-180 mg) Cap 2020-07 17:45: 33 Yes 1000mg Take 1,000 mg by mouth daily. [facility] hydrOXYzine (VISTARIL) 50 mg capsule 2020-07 17:45: 33 Yes 50mg Take 50 mg by mouth every 4 (four) hours as needed for Itching. q 4-6 hours as needed [facility] losartan 50 mg tablet 2020-07 17:45: 33 Yes 50mg Take 50 mg by mouth daily. [facility] trazodone HCl (DESYREL ORAL) 2020-07 17:45: 33 Yes 200mg Take 200 mg by mouth every evening. [facility] escitalopra m oxalate (LEXAPRO) 5 mg tablet 2020-07 17:45: 33 Yes 10mg Take 10 mg by mouth at bedtime. [facility] Melatonin 1 mg tablet 2020-07 17:45: 33 Yes 10mg Take 10 mg by mouth every evening. [facility] topiramate (TOPAMAX) 200 mg tablet 2020-07 17:45: 33 Yes 200mg Take 200 mg by mouth every evening. [facility] bupropion HCl (WELLBUTRIN ORAL) 2020-07 17:45: 33 Yes 150mg Take 150 mg by mouth every morning. [facility] OLANZapine (ZYPREXA) 15 mg tablet 2020-07 17:45: 33 Yes 15mg Take 15 mg by mouth every evening. [facility] OLANZapine (ZYPREXA) 2.5 mg tablet 2020-07 17:45: 33 Yes 2.5mg Take 2.5 mg by mouth 2 (two) times daily. [facility] furosemide (LASIX) injection 20 mg 2020-07 14:30: 00 Yes 20mg 20 mg, Slow IV Push, Q12H, First dose on 04/08/21 at 0930, Until Discontinu ed, Routine [facility] losartan (COZAAR) tablet 50 mg 2020-07 14:00: 00 Yes 50mg 50 mg, Oral, DAILY, First dose on 04/08/21 at 0900, Until Discontinu ed, Routine [facility] buPROPion XL (WELLBUTRIN XL) tablet 150 mg 2020-07 14:00: 00 Yes 150mg 150 mg, Oral, DAILY, First dose on 04/08/21 at 0900, Until Discontinu ed [facility] aspirin chewable tablet 81 mg 2020-07 14:00: 00 Yes 81mg 81 mg, Oral, DAILY, First dose on 04/08/21 at 0900, Until Discontinu ed, Routine [facility] enoxaparin (LOVENOX) injection 40 mg 2020-07 14:00: 00 Yes 40mg 40 mg, Subcutaneo us, DAILY, First dose on Sat /2/21 at 0900, Until Discontinu ed, Routine [facility] OLANZapine (ZyPREXA) tablet 2.5 mg 2020-07 13:00: 00 Yes 2.5mg 2.5 mg, Oral, BID, First dose on Sat04/08/21 at 0800, Until Discontinu ed, Routine [facility] methocarbam oL (ROBAXIN) tablet 750 mg 2020-07 13:00: 00 Yes 750mg 750 mg, Oral, TID, First dose on Sat04/08/21 at 0800, Until Discontinu ed, Routine [facility] LORazepam (ATIVAN) injection 0.5 mg 2020-07 04:07: 43 Yes .5mg 0.5 mg, Slow IV Push, PRN, 2 doses, Starting on Sat04/07/21 at 2307, Until Discontinu ed, Routine, Anxiety [facility] hydrOXYzine (ATARAX) tablet 50 mg 2020-07 02:51: 23 Yes 50mg 50 mg, Oral, Q4HPRN, Starting on Sat04/07/21 at 2151, Until Discontinu ed, Itching [facility] LORazepam (ATIVAN) tablet 0.5 mg 2020-07 02:05: 29 Yes .5mg 0.5 mg, Oral, PRN, 2 doses, Starting on Sat04/07/21 at 2105, Until Discontinu ed, Routine, Anxiety [facility] morpHINE injection 4 mg 2020-07 00:00: 00 04-07 22:58 :00 No 4mg 4 mg, Slow IV Push, ONCE, 1 dose, On Sat04/07/21 at 1900, STAT [facility] ondansetron (ZOFRAN (PF)) injection 4 mg 2020-07 00:00: 00 04-07 22:56 :00 No 4mg 4 mg, Slow IV Push, ONCE, 1 dose, On Sat04/07/21 at 1900, [place] [facility] morpHINE injection 4 mg 2020-07 23:58: 03 04-08 23:57 :03 No 4mg 4 mg, Slow IV Push, Q4HPRN, Starting on Sat04/07/21 at 1858, Until 04/08/21 at 1857, Routine, Pain (scale 7-10) [facility] HYDROcodone -acetaminop hen (NORCO 5) 5-325 mg tablet 1 tablet 2020-07 23:58: 00 04-09 23:57 :00 No 1{tbl} 1 tablet, Oral, Q6HPRN, Starting on Sat04/07/21 at 1858, Until 04/09/21 at 1857, Routine, Pain (scale 4-6) [facility] acetaminoph en (TYLENOL) tablet 650 mg 2020-07 23:57: 57 Yes 650mg 650 mg, Oral, Q6HPRN, Starting on Sat04/07/21 at 1857, Until Discontinu ed, Routine, Pain (scale 1-3) [facility] aspirin tablet 325 mg 2020-07 23:00: 00 04-07 21:56 :00 No 325mg 325 mg, Oral, ONCE, 1 dose, On Sat04/07/21 at 1800, STAT [facility] nitroglycer in (NITROSTAT) sublingual tablet 0.4 mg 2020-07 21:51: 01 04-07 22:46 :00 No .4mg 0.4 mg, Sublingual , Q5MIN PRN, 3 doses, Starting on Sat04/07/21 at 1651, Until Discontinu ed, [place]N, Chest pain [facility] fluconazole (DIFLUCAN) tablet 150 mg 01-12 14:00: 00 Yes 150mg 150 mg, Oral, DAILY, First dose on Sat01/12/21 at 0900, Until Discontinu ed, [place]
Re ason for Anti-Infec tive: Empiric Therapy for Suspected Infection< br>Empiric Therapy Site: HEENT
D uration of therapy: 72 hours [facility] cefTRIAXone (ROCEPHIN) 1,000 mg in NaCl 0.9% (NS) 50 mL MINI-BAG 01-12 10:15: 00 01-12 09:49 :00 No 1000mg 1,000 mg, IV Piggyback, ONCE, 1 dose, [place] 01/12/21 at 0515, 50 mL
Reas on for Anti-Infec tive: Empiric Therapy for Suspected Infection< br>Empiric Therapy Site: Urine
D uration of therapy: 72 hours [facility] hydrOXYzine (ATARAX) tablet 25 mg 01-12 10:15: 00 01-12 09:18 :00 No 25mg 25 mg, Oral, ONCE, 1 dose, [place] 01/12/21 at 0515, [place] [facility] HYDROcodone -acetaminop hen (NORCO) 10-325 mg tablet 1 tablet 01-12 10:15: 00 01-12 09:18 :00 No 1{tbl} 1 tablet, Oral, ONCE, 1 dose, [place] 01/12/21 at 0515, Routine [facility] maalox:diph enhydrAMINE :lidocaine2 %viscous 1:1:1: suspension (COMPOUNDED ) 01-12 09:30: 00 01-12 08:25 :00 No 15mL 15 mL, Oral, ONCE, 1 dose, [place] 01/12/21 at 0430, Routine [facility] cephALEXin (KEFLEX) 500 mg capsule 01-12 00:00: 00 04-07 00:00 :00 No [id number] 500mg Take 1 capsule by mouth 3 (three) times daily. [facility] HYDROcodone -acetaminop hen (NORCO 5) 5-325 mg tablet 1 tablet 12-11 02:00: 00 12-11 01:29 :00 No 1{tbl} 1 tablet, Oral, ONCE, 1 dose, 12/10/20 at 2100, [place] [facility] LORazepam (ATIVAN) injection 1 mg 12-11 00:30: 00 12-10 23:36 :00 No 1mg 1 mg, Slow IV Push, ONCE, 1 dose, 12/10/20 at 1930, STAT [facility] ketorolac (TORADOL) injection 30 mg 12-11 00:30: 00 12-10 23:36 :00 No 30mg 30 mg, Slow IV Push, ONCE, 1 dose, 12/10/20 at 1930, [place]
Fa culty member approving Restricted medication : EMERGENCY ROOM, [facility] ondansetron (ZOFRAN (PF)) injection 4 mg 12-10 23:45: 00 12-10 22:46 :00 No 4mg 4 mg, Slow IV Push, ONCE, 1 dose, 12/10/20 at 1845, [facility] NaCl 0.9% (NS) bolus infusion 2,000 mL 12-10 22:45: 00 12-11 01:29 :00 No 2000mL at 999 mL/hr, 2,000 mL, IV Infusion, ONCE, 1 dose, 12/10/20 at 1745, [place] [facility] proMETHazin e 25 mg tablet 12-10 00:00: 00 04-07 00:00 :00 No [id number] 12.5mg Take 0.5 tablets by mouth every 6 (six) hours as needed for N/V unresponsi ve to Ondansetro n. [facility] morpHINE injection 4 mg 12-04 22:30: 00 12-04 21:37 :00 No 4mg 4 mg, Slow IV Push, ONCE, 1 dose, 12/04/20 at 1730, STAT [facility] losartan 50 mg tablet 12-04 22:03: 53 Yes 50mg Take 50 mg by mouth daily. [facility] LORazepam (ATIVAN) tablet 1 mg 12-04 21:45: 00 12-04 20:44 :00 No 1mg 1 mg, Oral, ONCE, 1 dose, 12/04/20 at 1645, [place] [facility] ondansetron (ZOFRAN (PF)) injection 4 mg 12-04 21:15: 00 12-04 20:22 :00 No 4mg 4 mg, Slow IV Push, ONCE, 1 dose, [place] 12/04/20 at 1615, [place] [facility] morpHINE injection 4 mg 12-04 21:15: 00 12-04 20:21 :00 No 4mg 4 mg, Slow IV Push, ONCE, 1 dose, [place] 12/04/20 at 1615, STAT [facility] ALPRAZolam (XANAX) 2 mg tablet 11-04 04:24: 19 11-03 00:00 :00 No 2mg Take 2 mg by mouth at bedtime. [facility] LORazepam (ATIVAN) injection 1 mg 11-04 04:00: 00 11-04 02:57 :00 No 1mg 1 mg, Slow IV Push, ONCE, 1 dose, [facility] 11/03/20 at 2300, STAT [facility] LORazepam (ATIVAN) tablet 1 mg 11-04 04:00: 00 11-04 02:57 :00 No 1mg 1 mg, Oral, ONCE, 1 dose, [facility] 11/03/20 at 2300, [place] [facility] clonazePAM 0.5 mg tablet 11-01 00:00: 00 04-07 00:00 :00 No .5mg Take 0.5 mg by mouth. [facility] SERTraline 100 mg tablet 11-01 00:00: 00 04-07 00:00 :00 No 100mg Take 100 mg by mouth. [facility] busPIRone 10 mg tablet 10-18 00:00: 00 04-07 00:00 :00 No 10mg Take 10 mg by mouth. [facility] ibuprofen (IBU) tablet 800 mg 09-17 16:55: 00 09-17 16:57 :00 No 800mg 800 mg, Oral, ONCE, 1 dose, 3/13/21 at 1100, [place] benzonatate 100 mg capsule 09-17 00:00: 00 04-07 00:00 :00 No [id number] 100mg Take 1 capsule by mouth 3 (three) times daily as needed for Cough. [facility] amoxicillin 500 mg capsule 09-17 00:00: 00 09-28 04:59 :00 No [id number] 500mg Take 1 capsule by mouth 3 (three) times daily for 10 days. [facility] HYDROcodone -acetaminop hen (NORCO) 10-325 mg tablet 1 tablet 09-07 07:45: 00 09-07 07:09 :00 No 1{tbl} 1 tablet, Oral, ONCE, 1 dose, Sat09/07/20 at 0145, Routine [facility] ondansetron (ZOFRAN-ODT ) disintegrat ing tablet 4 mg 09-07 07:15: 00 09-07 07:15 :00 No 4mg 4 mg, Oral, ONCE, 1 dose, Sat09/07/20 at 0130, Routine [facility] ibuprofen 800 mg tablet 09-07 00:00: 00 Yes [id number] 800mg Take 1 tablet by mouth every 8 (eight) hours as needed for Pain (scale 4-6). [facility] ketorolac (TORADOL) injection 30 mg 08-28 10:45: 00 08-28 09:48 :00 No 30mg 30 mg, Slow IV Push, ONCE, 1 dose, 08/28/20 at 0445, Routine
bridge crew member approving Restricted medication : OLIVIA GARCIA [facility] ondansetron (ZOFRAN (PF)) injection 4 mg 08-28 10:00: 00 08-28 09:06 :00 No 4mg 4 mg, Slow IV Push, ONCE, 1 dose, 08/28/20 at 0400, [place] [facility] FENTanyl PF (SUBLIMAZE (PF)) injection 50 mcg 08-28 10:00: 00 08-28 09:07 :00 No 50ug 50 mcg, Slow IV Push, ONCE, 1 dose, 08/28/20 at 0400, Routine [facility] maalox:diph enhydrAMINE :lidocaine 2 % viscous 1:1:1 ([facility]) oral suspension 15 mL 08-28 10:00: 00 08-28 09:07 :00 No 15mL 15 mL, Oral, ONCE, 1 dose, 08/28/20 at 0400, Routine [facility] iohexol (OMNIPAQUE 350 BULK-100 mL) injection 120 mL 08-28 09:30: 00 08-28 09:11 :00 No 120mL 120 mL, Intravenou s, ONCE, 1 dose, 08/28/20 at 0330, Routine [facility] dicyclomine 20 mg tablet 08-28 00:00: 00 04-07 00:00 :00 No [id number] 20mg Take 1 tablet by mouth every 6 (six) hours as needed for Abdominal pain. [facility] ondansetron (ZOFRAN) 4 mg tablet 08-28 00:00: 00 09-17 00:00 :00 No [id number] 4mg Take 1 tablet by mouth every 8 (eight) hours as needed for Nausea and Vomiting (N/V). [facility] FENTanyl PF (SUBLIMAZE (PF)) injection 25 mcg 08-14 19:00: 00 08-14 18:09 :00 No 25ug 25 mcg, Slow IV Push, ONCE, 1 dose, 08/14/20 at 1300, STAT [facility] ondansetron (ZOFRAN (PF)) injection 4 mg 08-14 19:00: 00 08-14 18:10 :00 No 4mg 4 mg, Slow IV Push, ONCE, 1 dose, 08/14/20 at 1300, [facility] ketorolac (TORADOL) injection 15 mg 08-14 19:00: 00 08-14 18:09 :00 No 15mg 15 mg, Slow IV Push, ONCE, 1 dose, 08/14/20 at 1300, [facility] member approving Restricted medication : BEST TAYLOR [facility] piperacilli n-tazobacta m (ZOSYN) 3.375 g in NaCl 0.9% (NS) 100 mL MINI-BAG 08-14 19:00: 00 08-14 18:38 :00 No 3.375g 3.375 g, IV Piggyback, ONCE, 1 dose, 08/14/20 at 1300, 100 mL
Reas on for Anti-Infec tive: Documented Infection< br>Documen kaushik Infection Site: Urine
D uration of Therapy: Other (see Comments) [facility] NaCl 0.9% (NS) bolus infusion 1,000 mL 08-14 19:00: 00 08-14 19:00 :00 No 1000mL at 999 mL/hr, 1,000 mL, IV Infusion, ONCE, 1 dose, 08/14/20 at 1300, STAT [facility] guaiFENesin 100 mg/5 mL solution 08-14 00:00: 00 04-07 00:00 :00 No [id number] 100mg Take 5 mL by mouth every 4 (four) hours. [facility] ondansetron 4 mg disintegrat ing tablet 08-14 00:00: 00 09-17 00:00 :00 No [id number] 4mg Take 1 tablet by mouth every 8 (eight) hours as needed for Nausea and Vomiting (N/V). [facility] ibuprofen 600 mg tablet 08-14 00:00: 00 09-17 00:00 :00 No [id number] 600mg Take 1 tablet by mouth every 6 (six) hours as needed for Pain (scale 4-6). [facility] amoxicillin -clavulanat e 875-125 mg per tablet 08-14 00:00: 00 08-25 05:59 :00 No [id number] 1{tbl} Take 1 tablet by mouth 2 (two) times daily for 10 days. [facility] fluconazole (DIFLUCAN) tablet 150 mg 08-11 15:00: 00 Yes 150mg 150 mg, Oral, DAILY, First dose on [place] 08/11/20 at 0900, Until Discontinu ed, [facility]
Re ason for Anti-Infec tive: Documented Infection< br>Documen kaushik Infection Site: Urine
D uration of Therapy: Other (see Comments) [facility] HYDROcodone -acetaminop hen (NORCO) 10-325 mg tablet 1 tablet 08-11 05:30: 00 08-11 05:08 :00 No 1{tbl} 1 tablet, Oral, ONCE NOW, 1 dose, 08/10/20 at 2330, Routine [facility] FENTanyl PF (SUBLIMAZE (PF)) injection 25 mcg 08-11 04:30: 00 08-11 03:19 :00 No 25ug 25 mcg, Slow IV Push, ONCE, 1 dose, 08/10/20 at 2230, STAT [facility] ondansetron (ZOFRAN (PF)) injection 4 mg 08-11 04:15: 00 08-11 03:19 :00 No 4mg 4 mg, Slow IV Push, ONCE, 1 dose, 08/10/20 at 2215, [facility] NaCl 0.9% (NS) bolus infusion 1,000 mL 08-11 01:45: 00 08-11 03:45 :00 No 1000mL at 999 mL/hr, 1,000 mL, IV Infusion, ONCE, 1 dose, 08/10/20 at 1945, STAT [facility] ketorolac (TORADOL) injection 30 mg 08-11 01:45: 00 08-11 02:31 :00 No 30mg 30 mg, Slow IV Push, ONCE, 1 dose, 08/10/20 at 1945, [facility]
Fa [facility] member approving Restricted medication : [facility] T[facility]OR [facility] traMADoL (ULTRAM) 50 mg tablet 08-10 00:00: 00 09-17 00:00 :00 No [id number] 50mg Take 1 tablet by mouth every 6 (six) hours as needed for Pain (scale 7-10). Indication s: acute pain [facility] ibuprofen 800 mg tablet 08-07 00:00: 00 09-17 00:00 :00 No [id number] 800mg Take 1 tablet by mouth every 8 (eight) hours. [facility] amoxicillin 500 mg capsule 08-07 00:00: 00 09-17 00:00 :00 No [id number] 500mg Take 1 capsule by mouth 3 (three) times daily. [facility] traMADoL 50 mg tablet 08-07 00:00: 00 09-17 00:00 :00 No [id number] 50mg Take 1 tablet by mouth every 6 (six) hours as needed for Pain (scale 4-6). Indication s: acute pain [facility] LORazepam (ATIVAN) tablet 1 mg 2019-07 03:15: 00 07-01 02:21 :00 No 1mg 1 mg, Oral, ONCE, 1 dose, [place] 06/30/20 at 2115, [facility] FENTanyl PF (SUBLIMAZE (PF)) injection 50 mcg 2019-07 02:30: 00 07-01 01:39 :00 No 50ug 50 mcg, Slow IV Push, ONCE, 1 dose, [place] 06/30/20 at 2030, Routine [facility] ondansetron (ZOFRAN-ODT ) disintegrat ing tablet 4 mg 2019-07 01:15: 00 07-01 00:52 :00 No 4mg 4 mg, Oral, ONCE, 1 dose, [place] 06/30/20 at 1915, Routine [facility] ketorolac (TORADOL) injection 30 mg 2019-07 01:15: 00 07-01 00:52 :00 No 30mg 30 mg, Slow IV Push, ONCE, 1 dose, [place] 06/30/20 at 1915, [facility] member approving Restricted medication : ABDIAS ROBERTSON [facility] albuterol 90 mcg/actuati on inhaler 2019-07 00:00: 04-07 00:00 :00 No [id number] 2{puff} Inhale 2 Puffs every 4 (four) hours as needed for Wheezing or Shortness of Breath. [facility] hydrOXYzine 25 mg tablet 2019-07 00:00: 09-17 00:00 :00 No [id number] 25mg Take 1 tablet by mouth every 6 (six) hours as needed for Anxiety. [facility] naproxen sodium (ANAPROX DS) 550 mg tablet 2019-07 00:00: 00 04-07 00:00 :00 No [id number] 550mg Take 1 tablet by mouth 2 (two) times daily with meals. [facility] methylPREDN ISolone (MEDROL, BEBETO,) 4 mg tablets 2019-07 00:00: 09-17 00:00 :00 No [id number] Take by mouth SEE-INSTRU CTIONS. follow package directions [facility] methocarbam oL 500 mg tablet 2019-07 00:00: 00 07-04 05:59 :00 No [id number] 500mg Take 1 tablet by mouth 3 (three) times daily for 5 days. [facility] proMETHazin e (PHENERGAN) tablet 25 mg 2019-07 04:45: 00 06-13 03:37 :00 No 25mg 25 mg, Oral, ONCE, 1 dose, 06/12/20 at 2245, [facility] ondansetron (ZOFRAN (PF)) injection 4 mg 2019-07 03:00: 00 06-13 01:59 :00 No 4mg 4 mg, Slow IV Push, ONCE, 1 dose, 06/12/20 at 2100, [facility] ketorolac (TORADOL) injection 15 mg 2019-07 03:00: 06-13 01:58 :00 No 15mg 15 mg, Intramuscu lar, ONCE, 1 dose, 06/12/20 at 2100, [facility] member approving Restricted medication : LEEANNE WISE [facility] morpHINE injection 4 mg 2019-07 01:30: 00 06-13 00:41 :00 No 4mg 4 mg, Slow IV Push, ONCE, 1 dose, 06/12/20 at 1930, STAT [facility] ondansetron (ZOFRAN (PF)) injection 4 mg 2019-07 00:45: 00 06-13 00:41 :00 No 4mg 4 mg, Slow IV Push, ONCE, 1 dose, 06/12/20 at 1845, [facility] NaCl 0.9% (NS) bolus infusion 1,000 mL 2019-07 23:45: 00 06-13 03:54 :00 No 1000mL at 999 mL/hr, 1,000 mL, IV Infusion, ONCE, 1 dose, 06/12/20 at 1745, [facility] dicyclomine 20 mg tablet 2019-07 00:00: 00 04-07 00:00 :00 No [id number] 20mg Take 1 tablet by mouth 4 (four) times daily as needed for Abdominal pain. [facility] proMETHazin e 25 mg tablet 2019-07 00:00: 00 09-17 00:00 :00 No [id number] 25mg Take 1 tablet by mouth every 6 (six) hours as needed for Nausea and Vomiting (N/V). [facility] famotidine 20 mg tablet 2019-07 00:00: 00 06-27 05:59 :00 No [id number] 20mg Take 1 tablet by mouth at bedtime for 14 days. [facility] haloperidol lactate (HALDOL) injection 2.5 mg 2019-07 01:00: 00 05-16 23:51 :00 No 2.5mg 2.5 mg, Intravenou s, ONCE, 1 dose, [facility] 05/16/20 at 1900, STAT [facility] NaCl 0.9% (NS) bolus infusion 1,000 mL 2019-07 23:45: 00 05-17 00:54 :00 No 1000mL at 999 mL/hr, 1,000 mL, IV Infusion, ONCE, 1 dose, 05/16/20 at 1745, [facility] proMETHazin e (PHENERGAN) 25 mg suppository 2019-07 00:00: 00 Yes [id number] 25mg Insert 1 Suppositor y into rectum every 4 (four) hours as needed for Nausea and Vomiting (N/V). [facility] ondansetron (ZOFRAN (PF)) injection 4 mg 2019-07 07:30: 00 05-15 06:26 :00 No 4mg 4 mg, Slow IV Push, ONCE, 1 dose, [place] [facility]130[facility] (OMNIPAQUE 350 BULK-100 mL) injection 120 mL 2019-07 07:00: 00 05-15 06:52 :00 No 120mL 120 mL, Intravenou s, ONCE, 1 dose, [place] 05/15/20 at 0100, Routine [facility] ondansetron (ZOFRAN (PF)) injection 4 mg 2019-07 06:30: 00 05-15 05:52 :00 No 4mg 4 mg, Slow IV Push, ONCE, 1 dose, [place] 05/15/20 at 0030, [facility] ALPRAZolam (XANAX) 2 mg tablet 2019-07 05:30: 59 Yes 2mg Take 2 mg by mouth at bedtime. [facility] zolpidem 5 mg tablet 15 00:00: 00 04-07 00:00 :00 No 5mg Take 5 mg by mouth. [facility] Immunizations Ordered Immunization Name Filled Immunization Name [...] blood pressure 2023-10-29 18:12:00 132 mm[Hg] Kellee Buckley - External Diastolic blood pressure 2023-10-29 18:12:00 [...] Systolic blood pressure 2023-10-11 05:00:00 126 mm[Hg] [facility] Diastolic blood pressure 2023-10-11 05:00:00 87 mm[Hg] [facility] Heart rate 2023-10-11 05:00:00 94 /min [facility] Respiratory rate 2023-10-11 05:00:00 22 /min [facility] Oxygen saturation in Arterial blood by Pulse oximetry 2023-10-11 05:00:00 98 /min [facility] Body temperature 2023-10-11 02:28:00 37.22 Latanya [facility] Body height 2023-10-11 02:28:00 157.5 cm [facility] Body weight 2023-10-11 02:28:00 99.791 kg [facility] BMI 2023-10-11 02:28:00 40.24 kg/m2 [facility] Systolic blood pressure 2023-07-02 04:10:00 147 mm[Hg] [facility] Diastolic blood pressure 2023-07-02 04:10:00 89 mm[Hg] [facility] Heart rate 2023-07-02 04:10:00 73 /min [facility] Respiratory rate 2023-07-02 04:10:00 19 /min [facility] Oxygen saturation in Arterial blood by Pulse oximetry 2023-07-02 04:10:00 98 /min [facility] Body temperature 2023-07-02 01:47:00 36.78 Latanya [facility] Body height 2023-07-02 01:47:00 160 cm [facility] Body weight 2023-07-02 01:47:00 97.659 kg [facility] BMI 2023-07-02 01:47:00 38.14 kg/m2 [facility] Systolic blood pressure 2023-05-10 01:00:00 133 mm[Hg] [facility] Diastolic blood pressure 2023-05-10 01:00:00 81 mm[Hg] [facility] Heart rate 2023-05-10 01:00:00 64 /min [facility] Respiratory rate 2023-05-10 01:00:00 21 /min [facility] Oxygen saturation in Arterial blood by Pulse oximetry 2023-05-10 01:00:00 96 /min [facility] Body temperature 2023-05-09 22:43:00 36.67 Latanya [facility] Body height 2023-05-09 22:43:00 157.5 cm [facility] Body weight 2023-05-09 22:43:00 99.791 kg [facility] BMI 2023-05-09 22:43:00 40.24 kg/m2 [facility] Systolic blood pressure 2023-05-01 01:00:00 107 mm[Hg] [facility] Diastolic blood pressure 2023-05-01 01:00:00 80 mm[Hg] [facility] Heart rate 2023-05-01 01:00:00 80 /min [facility] Body temperature 2023-05-01 01:00:00 37.06 Latanya [facility] Respiratory rate 2023-05-01 01:00:00 16 /min [facility] Oxygen saturation in Arterial blood by Pulse oximetry 2023-05-01 01:00:00 98 /min [facility] Body height 2023-04-30 22:16:00 157.5 cm [facility] Body weight 2023-04-30 22:16:00 95.255 kg [facility] BMI 2023-04-30 22:16:00 38.41 kg/m2 [facility] Systolic blood pressure 2023-04-17 02:00:00 147 mm[Hg] [facility] Diastolic blood pressure 2023-04-17 02:00:00 83 mm[Hg] [facility] Heart rate 2023-04-17 02:00:00 90 /min [facility] Respiratory rate 2023-04-17 02:00:00 18 /min [facility] Oxygen saturation in Arterial blood by Pulse oximetry 2023-04-17 02:00:00 96 /min [facility] Body temperature 2023-04-17 01:33:00 36.78 Latanya [facility] Body height 2023-04-17 01:33:00 157.5 cm [facility] Body weight 2023-04-17 01:33:00 99.791 kg [facility] BMI 2023-04-17 01:33:00 40.24 kg/m2 [facility] Systolic blood pressure 2023-04-09 01:04:48 135 mm[Hg] [facility] Diastolic blood pressure 2023-04-09 01:04:48 84 mm[Hg] [facility] Heart rate 2023-04-09 01:04:48 67 /min [facility] Respiratory rate 2023-04-09 01:04:48 16 /min [facility] Oxygen saturation in Arterial blood by Pulse oximetry 2023-04-09 01:04:48 99 /min [facility] Body temperature 2023-04-08 22:16:00 36.67 Latanya [facility] Body height 2023-04-08 22:16:00 157.5 cm [facility] Body weight 2023-04-08 22:16:00 99.791 kg [facility] BMI 2023-04-08 22:16:00 40.24 kg/m2 [facility] Systolic blood pressure 2023-03-10 05:00:00 156 mm[Hg] [facility] Diastolic blood pressure 2023-03-10 05:00:00 94 mm[Hg] [facility] Heart rate 2023-03-10 05:00:00 75 /min [facility] Respiratory rate 2023-03-10 05:00:00 21 /min [facility] Oxygen saturation in Arterial blood by Pulse oximetry 2023-03-10 05:00:00 97 /min [facility] Body temperature 2023-03-10 01:20:00 36.72 Latanya [facility] Body height 2023-03-10 01:20:00 157.5 cm [facility] Body weight 2023-03-10 01:20:00 100.381 kg [facility] BMI 2023-03-10 01:20:00 40.48 kg/m2 [facility] Systolic blood pressure 2023-03-02 06:00:00 126 mm[Hg] [facility] Diastolic blood pressure 2023-03-02 06:00:00 79 mm[Hg] [facility] Heart rate 2023-03-02 06:00:00 69 /min [facility] Respiratory rate 2023-03-02 06:00:00 23 /min [facility] Oxygen saturation in Arterial blood by Pulse oximetry 2023-03-02 06:00:00 94 /min [facility] Body temperature 2023-03-02 00:34:00 37.28 Latanya [facility] Body height 2023-03-02 00:34:00 157.5 cm [facility] Body weight 2023-03-02 00:34:00 99.791 kg [facility] BMI 2023-03-02 00:34:00 40.24 kg/m2 [facility] Systolic blood pressure 2023-02-18 06:46:00 126 mm[Hg] [facility] Diastolic blood pressure 2023-02-18 06:46:00 77 mm[Hg] [facility] Heart rate 2023-02-18 06:46:00 79 /min [facility] Respiratory rate 2023-02-18 06:46:00 16 /min [facility] Oxygen saturation in Arterial blood by Pulse oximetry 2023-02-18 06:46:00 95 /min [facility] Body temperature 2023-02-18 03:55:00 36.72 Latanya [facility] Body height 2023-02-18 03:55:00 157.5 cm [facility] Body weight 2023-02-18 03:55:00 102.331 kg [facility] BMI 2023-02-18 03:55:00 41.26 kg/m2 [facility] Systolic blood pressure 2023-02-17 16:20:00 113 mm[Hg] [facility] Diastolic blood pressure 2023-02-17 16:20:00 65 mm[Hg] [facility] Heart rate 2023-02-17 16:20:00 65 /min [facility] Body temperature 2023-02-17 16:20:00 36.83 Latanya [facility] Respiratory rate 2023-02-17 16:20:00 16 /min [facility] Oxygen saturation in Arterial blood by Pulse oximetry 2023-02-17 16:20:00 97 /min [facility] Body weight 2023-02-17 08:50:00 99.973 kg [facility] BMI 2023-02-17 08:50:00 40.31 kg/m2 [facility] Body height 2023-02-16 01:19:00 157.5 cm [facility] Systolic blood pressure 2022-01-10 01:24:00 120 mm[Hg] [facility] Diastolic blood pressure 2022-01-10 01:24:00 76 mm[Hg] [facility] Heart rate 2022-01-10 01:24:00 73 /min [facility] Respiratory rate 2022-01-10 01:24:00 16 /min [facility] Oxygen saturation in Arterial blood by Pulse oximetry 2022-01-10 01:24:00 96 /min [facility] Body weight 2022-01-09 21:39:00 104.327 kg [facility] BMI 2022-01-09 21:39:00 42.07 kg/m2 [facility] Systolic blood pressure 2021-12-14 07:22:00 121 mm[Hg] [facility] Diastolic blood pressure 2021-12-14 07:22:00 86 mm[Hg] [facility] Heart rate 2021-12-14 07:22:00 80 /min [facility] Respiratory rate 2021-12-14 07:22:00 17 /min [facility] Oxygen saturation in Arterial blood by Pulse oximetry 2021-12-14 07:22:00 96 /min [facility] Body temperature 2021-12-14 03:06:00 36.72 Latanya [facility] Body height 2021-12-14 03:06:00 157.5 cm [facility] Body weight 2021-12-14 03:06:00 95.255 kg [facility] BMI 2021-12-14 03:06:00 38.41 kg/m2 [facility] Systolic blood pressure 2021-11-12 04:15:00 112 mm[Hg] [facility] Diastolic blood pressure 2021-11-12 04:15:00 75 mm[Hg] [facility] Heart rate 2021-11-12 04:15:00 92 /min [facility] Body temperature 2021-11-12 04:15:00 36.44 Latanya [facility] Respiratory rate 2021-11-12 04:15:00 18 /min [facility] Oxygen saturation in Arterial blood by Pulse oximetry 2021-11-12 04:15:00 98 /min [facility] Body height 2021-11-12 00:41:00 157.5 cm [facility] Body weight 2021-11-12 00:41:00 95.255 kg [facility] BMI 2021-11-12 00:41:00 38.41 kg/m2 [facility] Systolic blood pressure 2021-09-12 01:31:00 142 mm[Hg] [facility] Diastolic blood pressure 2021-09-12 01:31:00 80 mm[Hg] [facility] Heart rate 2021-09-12 01:31:00 78 /min [facility] Body temperature 2021-09-12 01:31:00 36.72 Latanya [facility] Respiratory rate 2021-09-12 01:31:00 18 /min [facility] Body height 2021-09-12 01:31:00 157.5 cm [facility] Body weight 2021-09-12 01:31:00 99.791 kg [facility] BMI 2021-09-12 01:31:00 40.24 kg/m2 [facility] Oxygen saturation in Arterial blood by Pulse oximetry 2021-09-12 01:31:00 97 /min [facility] Systolic blood pressure 2021-08-15 08:20:00 120 mm[Hg] [facility] Diastolic blood pressure 2021-08-15 08:20:00 74 mm[Hg] [facility] Heart rate 2021-08-15 08:20:00 69 /min [facility] Respiratory rate 2021-08-15 08:20:00 20 /min [facility] Oxygen saturation in Arterial blood by Pulse oximetry 2021-08-15 08:20:00 96 /min [facility] Body temperature 2021-08-15 05:34:00 36.22 Latanya [facility] Body height 2021-08-15 05:34:00 157.5 cm [facility] Body weight 2021-08-15 05:34:00 99.791 kg [facility] BMI 2021-08-15 05:34:00 40.24 kg/m2 [facility] Systolic blood pressure 2021-05-28 10:00:00 122 mm[Hg] [facility] Diastolic blood pressure 2021-05-28 10:00:00 78 mm[Hg] [facility] Heart rate 2021-05-28 10:00:00 75 /min [facility] Respiratory rate 2021-05-28 10:00:00 20 /min [facility] Oxygen saturation in Arterial blood by Pulse oximetry 2021-05-28 10:00:00 99 /min [facility] Body temperature 2021-05-28 05:21:00 36.11 Latanya [facility] Body height 2021-05-28 05:21:00 157.5 cm [facility] Body weight 2021-05-28 05:21:00 99.791 kg [facility] BMI 2021-05-28 05:21:00 40.24 kg/m2 [facility] Systolic blood pressure 2021-04-08 21:55:00 110 mm[Hg] [facility] Diastolic blood pressure 2021-04-08 21:55:00 80 mm[Hg] [facility] Heart rate 2021-04-08 21:55:00 70 /min [facility] Body temperature 2021-04-08 21:55:00 36.28 Latanya [facility] Respiratory rate 2021-04-08 21:55:00 16 /min [facility] Oxygen saturation in Arterial blood by Pulse oximetry 2021-04-08 21:55:00 94 /min [facility] Body height 2021-04-08 03:00:00 157.5 cm [facility] Body weight 2021-04-08 03:00:00 105.688 kg [facility] BMI 2021-04-08 03:00:00 42.62 kg/m2 [facility] Systolic blood pressure 2021-01-12 09:00:00 147 mm[Hg] [facility] Diastolic blood pressure 2021-01-12 09:00:00 71 mm[Hg] [facility] Heart rate 2021-01-12 09:00:00 103 /min [facility] Respiratory rate 2021-01-12 09:00:00 18 /min [facility] Oxygen saturation in Arterial blood by Pulse oximetry 2021-01-12 09:00:00 97 /min [facility] Body temperature 2021-01-12 07:48:00 37.06 Latanya [facility] Body height 2021-01-12 07:48:00 157.5 cm [facility] Body weight 2021-01-12 07:48:00 102.513 kg [facility] BMI 2021-01-12 07:48:00 41.34 kg/m2 [facility] Systolic blood pressure 2020-12-11 01:30:00 136 mm[Hg] [facility] Diastolic blood pressure 2020-12-11 01:30:00 88 mm[Hg] [facility] Heart rate 2020-12-11 01:30:00 99 /min [facility] Respiratory rate 2020-12-11 01:30:00 28 /min [facility] Oxygen saturation in Arterial blood by Pulse oximetry 2020-12-11 01:30:00 97 /min [facility] Body temperature 2020-12-10 22:11:00 36.78 Latanya [facility] Body weight 2020-12-10 22:11:00 99.791 kg [facility] BMI 2020-12-10 22:11:00 40.24 kg/m2 [facility] Systolic blood pressure 2020-12-04 21:30:00 126 mm[Hg] [facility] Diastolic blood pressure 2020-12-04 21:30:00 79 mm[Hg] [facility] Heart rate 2020-12-04 21:30:00 91 /min [facility] Respiratory rate 2020-12-04 21:30:00 20 /min [facility] Oxygen saturation in Arterial blood by Pulse oximetry 2020-12-04 21:30:00 96 /min [facility] Body temperature 2020-12-04 19:49:00 37.06 Latanya [facility] Body height 2020-12-04 19:49:00 157.5 cm [facility] Body weight 2020-12-04 19:49:00 99.791 kg [facility] BMI 2020-12-04 19:49:00 40.24 kg/m2 [facility] Systolic blood pressure 2020-11-04 01:42:00 142 mm[Hg] [facility] Diastolic blood pressure 2020-11-04 01:42:00 100 mm[Hg] [facility] Heart rate 2020-11-04 01:42:00 109 /min [facility] Body temperature 2020-11-04 01:42:00 36.78 Latanya [facility] Respiratory rate 2020-11-04 01:42:00 20 /min [facility] Body weight 2020-11-04 01:42:00 99.791 kg [facility] BMI 2020-11-04 01:42:00 40.24 kg/m2 [facility] Oxygen saturation in Arterial blood by Pulse oximetry 2020-11-04 01:42:00 98 /min [facility] Systolic blood pressure 2020-09-17 15:52:00 138 mm[Hg] [facility] Diastolic blood pressure 2020-09-17 15:52:00 94 mm[Hg] [facility] Heart rate 2020-09-17 15:52:00 98 /min [facility] Body temperature 2020-09-17 15:52:00 36.94 Latanya [facility] Respiratory rate 2020-09-17 15:52:00 20 /min [facility] Body weight 2020-09-17 15:52:00 95.255 kg [facility] BMI 2020-09-17 15:52:00 38.41 kg/m2 [facility] Oxygen saturation in Arterial blood by Pulse oximetry 2020-09-17 15:52:00 97 /min [facility] Systolic blood pressure 2020-09-17 15:52:00 138 mm[Hg] [facility] Diastolic blood pressure 2020-09-17 15:52:00 94 mm[Hg] [facility] Heart rate 2020-09-17 15:52:00 98 /min [facility] Body temperature 2020-09-17 15:52:00 36.94 Latanya [facility] Respiratory rate 2020-09-17 15:52:00 20 /min [facility] Body weight 2020-09-17 15:52:00 95.255 kg [facility] BMI 2020-09-17 15:52:00 38.41 kg/m2 [facility] Oxygen saturation in Arterial blood by Pulse oximetry 2020-09-17 15:52:00 97 /min [facility] Systolic blood pressure 2020-09-07 06:35:00 123 mm[Hg] [facility] Diastolic blood pressure 2020-09-07 06:35:00 56 mm[Hg] [facility] Heart rate 2020-09-07 06:35:00 97 /min [facility] Body temperature 2020-09-07 06:35:00 36.28 Latanya [facility] Respiratory rate 2020-09-07 06:35:00 18 /min [facility] Body weight 2020-09-07 06:35:00 99.791 kg [facility] BMI 2020-09-07 06:35:00 40.24 kg/m2 [facility] Oxygen saturation in Arterial blood by Pulse oximetry 2020-09-07 06:35:00 98 /min [facility] Systolic blood pressure 2020-09-07 06:35:00 123 mm[Hg] [facility] Diastolic blood pressure 2020-09-07 06:35:00 56 mm[Hg] [facility] Heart rate 2020-09-07 06:35:00 97 /min [facility] Body temperature 2020-09-07 06:35:00 36.28 Latanya [facility] Respiratory rate 2020-09-07 06:35:00 18 /min [facility] Body weight 2020-09-07 06:35:00 99.791 kg [facility] BMI 2020-09-07 06:35:00 40.24 kg/m2 [facility] Oxygen saturation in Arterial blood by Pulse oximetry 2020-09-07 06:35:00 98 /min [facility] Systolic blood pressure 2020-08-28 09:00:00 132 mm[Hg] [facility] Diastolic blood pressure 2020-08-28 09:00:00 87 mm[Hg] [facility] Heart rate 2020-08-28 09:00:00 90 /min [facility] Respiratory rate 2020-08-28 09:00:00 20 /min [facility] Oxygen saturation in Arterial blood by Pulse oximetry 2020-08-28 09:00:00 97 /min [facility] Body temperature 2020-08-28 07:59:00 36.72 Latanya [facility] Body height 2020-08-28 07:59:00 157.5 cm [facility] Body weight 2020-08-28 07:59:00 99.791 kg [facility] BMI 2020-08-28 07:59:00 40.24 kg/m2 [facility] Systolic blood pressure 2020-08-28 09:00:00 132 mm[Hg] [facility] Diastolic blood pressure 2020-08-28 09:00:00 87 mm[Hg] [facility] Heart rate 2020-08-28 09:00:00 90 /min [facility] Respiratory rate 2020-08-28 09:00:00 20 /min [facility] Oxygen saturation in Arterial blood by Pulse oximetry 2020-08-28 09:00:00 97 /min [facility] Body temperature 2020-08-28 07:59:00 36.72 Latanya [facility] Body height 2020-08-28 07:59:00 157.5 cm [facility] Body weight 2020-08-28 07:59:00 99.791 kg [facility] BMI 2020-08-28 07:59:00 40.24 kg/m2 [facility] Systolic blood pressure 2020-08-14 19:40:00 135 mm[Hg] [facility] Diastolic blood pressure 2020-08-14 19:40:00 100 mm[Hg] [facility] Heart rate 2020-08-14 19:40:00 68 /min [facility] Body temperature 2020-08-14 19:40:00 37.11 Latanya [facility] Respiratory rate 2020-08-14 19:40:00 19 /min [facility] Oxygen saturation in Arterial blood by Pulse oximetry 2020-08-14 19:40:00 99 /min [facility] Body height 2020-08-14 17:41:00 157.5 cm [facility] Body weight 2020-08-14 17:41:00 99.791 kg [facility] BMI 2020-08-14 17:41:00 40.24 kg/m2 [facility] Systolic blood pressure 2020-08-14 19:40:00 135 mm[Hg] [facility] Diastolic blood pressure 2020-08-14 19:40:00 100 mm[Hg] [facility] Heart rate 2020-08-14 19:40:00 68 /min [facility] Body temperature 2020-08-14 19:40:00 37.11 Latanya [facility] Respiratory rate 2020-08-14 19:40:00 19 /min [facility] Oxygen saturation in Arterial blood by Pulse oximetry 2020-08-14 19:40:00 99 /min [facility] Body height 2020-08-14 17:41:00 157.5 cm [facility] Body weight 2020-08-14 17:41:00 99.791 kg [facility] BMI 2020-08-14 17:41:00 40.24 kg/m2 [facility] Systolic blood pressure 2020-08-11 04:00:00 106 mm[Hg] [facility] Diastolic blood pressure 2020-08-11 04:00:00 92 mm[Hg] [facility] Heart rate 2020-08-11 04:00:00 90 /min [facility] Respiratory rate 2020-08-11 04:00:00 16 /min [facility] Oxygen saturation in Arterial blood by Pulse oximetry 2020-08-11 04:00:00 99 /min [facility] Body temperature 2020-08-11 03:12:56 37.72 Latanya [facility] Body height 2020-08-11 00:19:00 157.5 cm [facility] Body weight 2020-08-11 00:19:00 99.791 kg [facility] BMI 2020-08-11 00:19:00 40.24 kg/m2 [facility] Systolic blood pressure 2020-08-11 04:00:00 106 mm[Hg] [facility] Diastolic blood pressure 2020-08-11 04:00:00 92 mm[Hg] [facility] Heart rate 2020-08-11 04:00:00 90 /min [facility] Respiratory rate 2020-08-11 04:00:00 16 /min [facility] Oxygen saturation in Arterial blood by Pulse oximetry 2020-08-11 04:00:00 99 /min [facility] Body temperature 2020-08-11 03:12:56 37.72 Latanya [facility] Body height 2020-08-11 00:19:00 157.5 cm [facility] Body weight 2020-08-11 00:19:00 99.791 kg [facility] BMI 2020-08-11 00:19:00 40.24 kg/m2 [facility] Systolic blood pressure 2020-08-07 13:16:00 100 mm[Hg] [facility] Diastolic blood pressure 2020-08-07 13:16:00 69 mm[Hg] [facility] Heart rate 2020-08-07 13:16:00 99 /min [facility] Body temperature 2020-08-07 13:16:00 36.67 Latanya [facility] Respiratory rate 2020-08-07 13:16:00 18 /min [facility] Body weight 2020-08-07 13:16:00 95.255 kg [facility] BMI 2020-08-07 13:16:00 38.41 kg/m2 [facility] Oxygen saturation in Arterial blood by Pulse oximetry 2020-08-07 13:16:00 99 /min [facility] Systolic blood pressure 2020-08-07 13:16:00 100 mm[Hg] [facility] Diastolic blood pressure 2020-08-07 13:16:00 69 mm[Hg] [facility] Heart rate 2020-08-07 13:16:00 99 /min [facility] Body temperature 2020-08-07 13:16:00 36.67 Latanya [facility] Respiratory rate 2020-08-07 13:16:00 18 /min [facility] Body weight 2020-08-07 13:16:00 95.255 kg [facility] BMI 2020-08-07 13:16:00 38.41 kg/m2 [facility] Oxygen saturation in Arterial blood by Pulse oximetry 2020-08-07 13:16:00 99 /min [facility] Systolic blood pressure 2020-07-01 02:00:00 136 mm[Hg] [facility] Diastolic blood pressure 2020-07-01 02:00:00 85 mm[Hg] [facility] Heart rate 2020-07-01 02:00:00 73 /min [facility] Respiratory rate 2020-07-01 02:00:00 20 /min [facility] Oxygen saturation in Arterial blood by Pulse oximetry 2020-07-01 02:00:00 97 /min [facility] Body temperature 2020-06-30 23:36:00 36.56 Latanya [facility] Body height 2020-06-30 23:36:00 157.5 cm [facility] Body weight 2020-06-30 23:36:00 95.255 kg [facility] BMI 2020-06-30 23:36:00 38.41 kg/m2 [facility] Systolic blood pressure 2020-07-01 02:00:00 136 mm[Hg] [facility] Diastolic blood pressure 2020-07-01 02:00:00 85 mm[Hg] [facility] Heart rate 2020-07-01 02:00:00 73 /min [facility] Respiratory rate 2020-07-01 02:00:00 20 /min [facility] Oxygen saturation in Arterial blood by Pulse oximetry 2020-07-01 02:00:00 97 /min [facility] Body temperature 2020-06-30 23:36:00 36.56 Latanya [facility] Body height 2020-06-30 23:36:00 157.5 cm [facility] Body weight 2020-06-30 23:36:00 95.255 kg [facility] BMI 2020-06-30 23:36:00 38.41 kg/m2 [facility] Systolic blood pressure 2020-06-28 21:57:00 151 mm[Hg] [facility] Diastolic blood pressure 2020-06-28 21:57:00 88 mm[Hg] [facility] Heart rate 2020-06-28 21:57:00 94 /min [facility] Body temperature 2020-06-28 21:57:00 37.78 Latanya [facility] Respiratory rate 2020-06-28 21:57:00 16 /min [facility] Body height 2020-06-28 21:57:00 157.5 cm [facility] Body weight 2020-06-28 21:57:00 95.255 kg [facility] BMI 2020-06-28 21:57:00 38.41 kg/m2 [facility] Oxygen saturation in Arterial blood by Pulse oximetry 2020-06-28 21:57:00 96 /min [facility] Systolic blood pressure 2020-06-28 21:57:00 151 mm[Hg] [facility] Diastolic blood pressure 2020-06-28 21:57:00 88 mm[Hg] [facility] Heart rate 2020-06-28 21:57:00 94 /min [facility] Body temperature 2020-06-28 21:57:00 37.78 Latanya [facility] Respiratory rate 2020-06-28 21:57:00 16 /min [facility] Body height 2020-06-28 21:57:00 157.5 cm [facility] Body weight 2020-06-28 21:57:00 95.255 kg [facility] BMI 2020-06-28 21:57:00 38.41 kg/m2 [facility] Oxygen saturation in Arterial blood by Pulse oximetry 2020-06-28 21:57:00 96 /min [facility] Systolic blood pressure 2020-06-13 03:40:00 122 mm[Hg] [facility] Diastolic blood pressure 2020-06-13 03:40:00 78 mm[Hg] [facility] Heart rate 2020-06-13 03:40:00 90 /min [facility] Respiratory rate 2020-06-13 03:40:00 18 /min [facility] Oxygen saturation in Arterial blood by Pulse oximetry 2020-06-13 03:40:00 94 /min [facility] Body temperature 2020-06-12 23:39:00 37.22 Latanya [facility] Body weight 2020-06-12 23:39:00 97.07 kg [facility] BMI 2020-06-12 23:39:00 39.14 kg/m2 [facility] Systolic blood pressure 2020-06-13 03:40:00 122 mm[Hg] [facility] Diastolic blood pressure 2020-06-13 03:40:00 78 mm[Hg] [facility] Heart rate 2020-06-13 03:40:00 90 /min [facility] Respiratory rate 2020-06-13 03:40:00 18 /min [facility] Oxygen saturation in Arterial blood by Pulse oximetry 2020-06-13 03:40:00 94 /min [facility] Body temperature 2020-06-12 23:39:00 37.22 Latanya [facility] Body weight 2020-06-12 23:39:00 97.07 kg [facility] BMI 2020-06-12 23:39:00 39.14 kg/m2 [facility] Heart rate 2020-05-17 00:40:00 82 /min [facility] Respiratory rate 2020-05-17 00:40:00 18 /min [facility] Oxygen saturation in Arterial blood by Pulse oximetry 2020-05-17 00:40:00 95 /min [facility] Systolic blood pressure 2020-05-17 00:00:00 137 mm[Hg] [facility] Diastolic blood pressure 2020-05-17 00:00:00 93 mm[Hg] [facility] Body temperature 2020-05-16 23:17:00 37.61 Latanya [facility] Body weight 2020-05-16 23:17:00 97.07 kg [facility] BMI 2020-05-16 23:17:00 39.14 kg/m2 [facility] Heart rate 2020-05-17 00:40:00 82 /min [facility] Respiratory rate 2020-05-17 00:40:00 18 /min [facility] Oxygen saturation in Arterial blood by Pulse oximetry 2020-05-17 00:40:00 95 /min [facility] Systolic blood pressure 2020-05-17 00:00:00 137 mm[Hg] [facility] Diastolic blood pressure 2020-05-17 00:00:00 93 mm[Hg] [facility] Body temperature 2020-05-16 23:17:00 37.61 Latanya [facility] Body weight 2020-05-16 23:17:00 97.07 kg [facility] BMI 2020-05-16 23:17:00 39.14 kg/m2 [facility] Systolic blood pressure 2020-05-15 08:50:00 131 mm[Hg] [facility] Diastolic blood pressure 2020-05-15 08:50:00 80 mm[Hg] [facility] Heart rate 2020-05-15 08:50:00 70 /min [facility] Respiratory rate 2020-05-15 08:50:00 18 /min [facility] Oxygen saturation in Arterial blood by Pulse oximetry 2020-05-15 08:50:00 97 /min [facility] Body temperature 2020-05-15 05:29:00 36.44 Latanya [facility] Body height 2020-05-15 05:29:00 157.5 cm [facility] Body weight 2020-05-15 05:29:00 97.07 kg Simultaneous filing. User may not have seen previous data. [facility] BMI 2020-05-15 05:29:00 39.14 kg/m2 [facility] Systolic blood pressure 2020-05-15 08:50:00 131 mm[Hg] [facility] Diastolic blood pressure 2020-05-15 08:50:00 80 mm[Hg] [facility] Heart rate 2020-05-15 08:50:00 70 /min [facility] Respiratory rate 2020-05-15 08:50:00 18 /min [facility] Oxygen saturation in Arterial blood by Pulse oximetry 2020-05-15 08:50:00 97 /min [facility] Body temperature 2020-05-15 05:29:00 36.44 Latanya [facility] Body height 2020-05-15 05:29:00 157.5 cm [facility] Body weight 2020-05-15 05:29:00 97.07 kg Simultaneous filing. User may not have seen previous data. [facility] BMI 2020-05-15 05:29:00 39.14 kg/m2 [facility] Procedures Procedure Date / Time Performed Performing Clinician Source CT ABDOMEN PELVIS W CONTRAST 2023-10-11 04:08:24 Olivia Garcia [facility] POCT TEST 2023-10-11 03:40:00 Olivia Garcia [facility] LIPASE 2023-10-11 03:25:00 Olivia Garcia [facility] COMP. METABOLIC PANEL ([id number]) 2023-10-11 03:25:00 Olivia Garcia [facility] CBC WITH DIFF 2023-10-11 03:25:00 Olivia Garcia [facility] URINALYSIS 2023-10-11 03:25:00 Olivia Garcia [facility] XR KUB 2023-07-02 [facility] 02:30:00 Alberta Richards [facility] LIPASE 2023-07-02 02:05:00 Roberto Richards [facility] COMP. METABOLIC PANEL ([id number]) 2023-07-02 02:05:00 Roberto Richards [facility] CBC WITH DIFF 2023-07-02 02:05:00 Roberto Richards [facility] URINALYSIS 2023-07-02 02:05:00 Roberto Richards [facility] URINE DRUG (IMMUNOASSAY) - COMPREHENSIVE DRUG SCREEN W/O REFLEX 2023-07-02 02:05:00 Roberto Richards [facility] CONSENT/REFUSAL FOR DIAGNOSIS AND TREATMENT 2023-07-02 01:43:05 Doctor Unassigned, August [facility] LIPASE 2023-05-09 22:47:00 Narayan Narvaez [facility] COMP. METABOLIC PANEL ([id number]) 2023-05-09 22:47:00 Narayan Narvaez [facility] CBC WITH DIFF 2023-05-09 22:47:00 Narayan Narvaez [facility] CONSENT/REFUSAL FOR DIAGNOSIS AND TREATMENT 2023-05-09 22:32:48 Doctor Unassigned, August [facility] CT ABDOMEN PELVIS W CONTRAST 2023-04-30 23:47:56 Narayan Narvaez [facility] COMP. METABOLIC PANEL ([id number]) 2023-04-30 23:08:00 Narayan Narvaez [facility] CBC WITH DIFF 2023-04-30 23:08:00 Narayan Narvaez [facility] POCT TEST 2023-04-30 22:59:00 Jaquan Narvaez [facility] URINALYSIS 2023-04-30 22:57:[address] [facility] CONSENT/REFUSAL FOR DIAGNOSIS AND TREATMENT 2023-04-30 22:14:38 Doctor Unassigned, August [facility] XR ABDOMEN ACUTE SERIES 2023-04-17 02:13:44 Do minal Richards [facility] POCT TEST 2023-04-17 02:11:00 Alberta Richards [facility] LIPASE 2023-04-17 02:04:00 Roberto Richards [facility] TROPONIN I 2023-04-17 02:04:[address] [facility] COMP. METABOLIC PANEL ([id number]) 2023-04-17 02:04:00 Roberto Richards [facility] CBC WITH DIFF 2023-04-17 02:04:00 Roberto Richards [facility] PROTHROMBIN TIME / INR 2023-04-17 02:04:00 Jalen Richards [facility] ACTIVATED PARTIAL THRMPLAS MARCIO 2023-04-17 02:04:00 Roberto Richards [facility] URINALYSIS 2023-04-17 02:04:00 Roberto Richards [facility] N-TERMINAL PRO-BNP 2023-04-17 02:04:00 Roberto Richards [facility] URINE DRUG (IMMUNOASSAY) - COMPREHENSIVE DRUG SCREEN W/O REFLEX 2023-04-17 02:04:00 Roberto Richards [facility] CONSENT/REFUSAL FOR DIAGNOSIS AND TREATMENT 2023-04-17 01:22:36 Doctor Unassigned, August [facility] URINALYSIS 2023-04-09 01:02:00 Saleem Edward [facility] LIPASE 2023-04-08 23:15:00 Saleem Edward [facility] MAGNESIUM 2023-04-08 23:15:00 Saleem Edward [facility] TROPONIN I 2023-04-08 23:15:[address] [facility] COMP. METABOLIC PANEL ([id number]) 2023-04-08 23:15:00 Saleem Edward [facility] CBC WITH DIFF 2023-04-08 23:15:00 Saleem Edward [facility] CONSENT/REFUSAL FOR DIAGNOSIS AND TREATMENT 2023-04-08 21:57:42 Doctor Unassigned, August [facility] CT ABDOMEN PELVIS W CONTRAST 2023-03-10 03:38:58 Roberto Richards [facility] POCT TEST 2023-03-10 02:51:00 Alberta Richards [facility] URINALYSIS 2023-03-10 01:49:00 Roberto Richards [facility] LIPASE 2023-03-10 01:46:00 Roberto Richards [facility] COMP. METABOLIC PANEL ([id number]) 2023-03-10 01:46:00 Roberto Richards [facility] CBC WITH DIFF 2023-03-10 01:46:00 Roberto Richards [facility] CONSENT/REFUSAL FOR DIAGNOSIS AND TREATMENT 2023-03-10 01:36:24 Doctor Unassigned, August [facility] CONSENT/REFUSAL FOR DIAGNOSIS AND TREATMENT 2023-03-10 01:14:40 Doctor Unassigned, August [facility] CT ABDOMEN PELVIS W CONTRAST 2023-03-02 05:16:35 Olivia Garcia [facility] POCT TEST 2023-03-02 03:26:00 Olivia Garcia [facility] LIPASE 2023-03-02 03:23:00 Jose Merita [facility] COMP. METABOLIC PANEL ([id number]) 2023-03-02 03:23:00 Olivia Garcia [facility] CBC WITH DIFF 2023-03-02 03:23:00 Olivia Garcia [facility] URINALYSIS 2023-03-02 03:23:00 Olivia Garcia [facility] CONSENT/REFUSAL FOR DIAGNOSIS AND TREATMENT 2023-03-02 00:22:44 Doctor Unassigned, August [facility] CONSENT/REFUSAL FOR DIAGNOSIS AND TREATMENT 2023-02-18 03:44:46 Doctor Unassigned, August [facility] LIPASE 2023-02-17 09:28:00 Jesús Montero [facility] HEPATIC FUNCTION PANEL ([id number]) (ALB,T.PRO,BILI T,BU/BC,ALT,AST,ALK PHOS) 2023-02-17 09:28:00 Jesús Montero [facility] BASIC METABOLIC PANEL (NA, K, CL, CO2, GLUCOSE, BUN, CREATININE, CA) 2023-02-17 09:28:00 Jesús Montero [facility] CBC WITH DIFF 2023-02-17 09:28:00 Kylah Jesús [facility] LIPASE 2023-02-16 18:24:00 Jesús Montero [facility] HEPATIC FUNCTION PANEL ([id number]) (ALB,T.PRO,BILI T,BU/BC,ALT,AST,ALK PHOS) 2023-02-16 18:24:00 Kylah [facility] BASIC METABOLIC PANEL (NA, K, CL, CO2, GLUCOSE, BUN, CREATININE, CA) 2023-02-16 18:24:00 Kylah [facility] CBC WITH DIFF 2023-02-16 18:23:00 Kylah Jesús [facility] CT ABDOMEN PELVIS W CONTRAST 2023-02-15 23:29:00 Leeanne Wise [facility] LIPASE 2023-02-15 21:45:00 Leeanne Wise [facility] COMP. METABOLIC PANEL ([id number]) 2023-02-15 21:45:00 Leeanne Wise [facility] CBC WITH DIFF 2023-02-15 21:45:00 Leeanne Wise [facility] D-DIMER 2023-02-15 19:55:00 Leeanne Wise [facility] URINALYSIS 2023-02-15 19:50:00 Leeanne Wise [facility] RAPID INFLUENZA A/B 2023-02-15 19:50:00 Leeanne Wise [facility] COVID-19 (ID NOW RAPID TESTING) 2023-02-15 19:50:00 Leeanne Wise [facility] XR CHEST 1 VW 2023-02-15 19:38:00 Leeanne Wise [facility] ASSIGNMENT OF BENEFITS 2023-02-15 19:26:58 Docto r Unassigned, August [facility] HB ECG ROUTINE & RHYTHM STRIP 2023-02-15 19:07:40 Leeanne Wise [facility] NOTICE OF PRIVACY PRACTICES 2023-02-15 18:24:07 Doctor Unassigned, August [facility] CONSENT/REFUSAL FOR DIAGNOSIS AND TREATMENT 2023-02-15 18:23:04 Doctor Unassigned, August [facility] TROPONIN I 2022-01-10 00:32:00 Melida Longoria [facility] TROPONIN I 2022-01-09 22:17:00 Melida Longoria [facility] BASIC METABOLIC PANEL (NA, K, CL, CO2, GLUCOSE, BUN, CREATININE, CA) 2022-01-09 22:17:00 Melida Longoria [facility] CBC WITH DIFF 2022-01-09 22:17:00 Melida Longoria [facility] N-TERMINAL PRO-BNP 2022-01-09 22:17:00 Melida Longoria [facility] XR CHEST 1 VW 2022-01-09 22:11:00 Melida Longoria [facility] CONSENT/REFUSAL FOR DIAGNOSIS AND TREATMENT 2022-01-09 21:34:15 Doctor Unassigned, August [facility] TROPONIN I 2021-12-14 05:39:00 Wil Mcqueen [facility] XR CHEST 1 2021-12-14 04:39:00 Wil Mcqueen [facility] POCT TEST 2021-12-14 04:20:00 Wil Mcqueen [facility] URINALYSIS 2021-12-14 03:57:00 Wil Mcqueen [facility] LIPASE 2021-12-14 03:43:00 Wil Mcqueen [facility] TROPONIN I 2021-12-14 03:43:00 Wil Mcqueen [facility] FREE T4 2021-12-14 03:43:00 Wil Mcqueen [facility] THYROID STIMULATING HORMONE 2021-12-14 03:43:00 Wil Mcqueen [facility] COMP. METABOLIC PANEL ([id number]) 2021-12-14 03:43:00 Wil Mcqueen [facility] CBC WITH DIFF 2021-12-14 03:43:[address] [facility] 2021-12-14 03:43:00 Wil [facility]que[facility] CONSENT/REFUSAL FOR DIAGNOSIS AND TREATMENT 2021-12-14 02:58:21 Doctor Unassigned, August [facility] TROPONIN I 2021-11-12 03:04:00 Dee Wang [facility] POCT TEST 2021-11-12 02:56:00 Tra Wang [facility] URINE DRUG (IMMUNOASSAY) - COMPREHENSIVE DRUG SCREEN 2021-11-12 02:30:00 Dee Wang [facility] URINALYSIS 2021-11-12 02:30:00 Dee Wang [facility] XR CHEST 2 VW 2021-11-12 01:45:03 Dee Wang [facility] LIPASE 2021-11-12 01:34:00 Dee Wang [facility] TROPONIN I 2021-11-12 01:34:00 Dee Wang [facility] COMP. METABOLIC PANEL ([id number]) 2021-11-12 01:34:00 Dee Wang [facility] CBC WITH DIFF 2021-11-12 01:34:00 Dee Wang [facility] N-TERMINAL PRO-BNP 2021-11-12 01:34:00 Mckinley Wang [facility] CONSENT/REFUSAL FOR DIAGNOSIS AND TREATMENT 2021-11-12 00:36:34 Doctor Unassigned, August [facility] CT ABDOMEN PELVIS W CONTRAST 2021-09-12 02:49:43 Dee Wang [facility] COVID-19 (ID NOW RAPID TESTING) 2021-09-12 02:23:00 Dee Wang [facility] POCT TEST 2021-09-12 02:21:00 Tra Wang [facility] POCT TEST 2021-09-12 01:45:00 Olivia Garcia [facility] URINALYSIS 2021-09-12 01:43:00 Olivia Garcia [facility] LIPASE 2021-09-12 01:40:00 Olivia Garcia [facility] COMP. METABOLIC PANEL ([id number]) 2021-09-12 01:40:00 Olivia Garcia [facility] CBC WITH DIFF 2021-09-12 01:40:00 Olivia Garcia [facility] CONSENT/REFUSAL FOR DIAGNOSIS AND TREATMENT 2021-09-12 01:26:55 Doctor Unassigned, August [facility] XR LUMBAR SPINE 1 VW 2021-08-15 07:03:00 Angeles Garcia i [facility] URINALYSIS 2021-08-15 06:35:00 Olivia Garcia [facility] POCT TEST 2021-08-15 06:35:00 Olivia Garcia [facility] NOTICE OF PRIVACY PRACTICES 2021-08-15 06:01:56 Doctor Unassigned, August [facility] CONSENT/REFUSAL FOR DIAGNOSIS AND TREATMENT 2021-08-15 05:25:54 Doctor Unassigned, August [facility] TROPONIN I 2021-05-28 07:50:00 Cem Choi [facility] D-DIMER 2021-05-28 07:05:00 Cem Choi [facility] XR CHEST 2 VW 2021-05-28 05:46[facility] 2021-05-28 05:32:00 Cem Choi [facility] LIPASE 2021-05-28 05:29:00 Cem Choi [facility] TROPONIN I 2021-05-28 05:29:00 Cem Choi [facility] COMP. METABOLIC PANEL ([id number]) 2021-05-28 05:29:00 Cem Choi [facility] CBC WITH DIFF 2021-05-28 05:29:00 Cem Choi [facility] N-TERMINAL PRO-BNP 2021-05-28 05:29:00 Cem Choi [facility] COVID-19 (ID NOW RAPID TESTING) 2021-05-28 05:29:00 [facility] 2021-04-08 10:01:00 Brittni Romero [facility] BASIC METABOLIC PANEL (NA, K, CL, CO2, GLUCOSE, BUN, CREATININE, CA) 2021-04-08 10:01:00 Brittni Romero [facility] CBC WITH DIFF 2021-04-08 10:01:00 Brittni Romero [facility] TROPONIN I 2021-04-08 04:12:00 Brittni Romero [facility] XR CHEST 1 VW 2021-04-07 22:33:33 Roberto Richards [facility] LIPASE 2021-04-07 21:52:00 Roberto [facility] MAGNESIUM 2021-04-07 21:52:00 Brittni Romero [facility] TROPONIN I 2021-04-07 21:52:00 Roberto [facility] THYROID STIMULATING HORMONE 2021-04-07 21:52:00 Brittni Romero [facility] COMP. METABOLIC PANEL ([id number]) 2021-04-07 21:52:00 Roberto Richards [facility] LIPID PANEL (63237)(TOTAL CHOLESTEROL, TRIGLYCERIDES, HDL) 2021-04-07 21:52:00 Brittni Romero [facility] CBC WITH DIFF 2021-04-07 21:52:00 Roberto Richards [facility] GLYCOSYLATED HEMOGLOBIN (A1C) 2021-04-07 21:52:00 Brittni Romero [facility] PROTHROMBIN TIME / INR 2021-04-07 21:52:00 Jalen Richards [facility] ACTIVATED PARTIAL THRMPLAS MARCIO 2021-04-07 21:52:00 Roberto Richards [facility] N-TERMINAL PRO-BNP 2021-04-07 21:52:00 Roberto Richards [facility] COVID-19 (ID NOW RAPID TESTING) 2021-04-07 21:51:00 Roberto Richards [facility] HB ECG ROUTINE & RHYTHM STRIP 2021-04-07 21:38:41 Roberto Richards [facility] CONSENT/REFUSAL FOR DIAGNOSIS AND TREATMENT 2021-04-07 21:17:47 Doctor Unassigned, August [facility] CT ABDOMEN PELVIS WO CONTRAST 2021-01-12 08:10:17 [facility] POCT TEST 2021-01-12 08:02:00 Jaquan Narvaez [facility] URINALYSIS 2021-01-12 07:58:00 Singer [facility] COMP. METABOLIC PANEL ([id number]) 2021-01-12 07:56:00 Singer [facility] CBC WITH DIFF 2021-01-12 07:56:00 Singer [facility] TROPONIN I 2020-12-11 00:47[facility]00 [facility] 2020-12-10 22:40:57 Bal Hassan [facility] POCT TEST 2020-12-10 22:32:00 Suzanna Hassan [facility] URINALYSIS 2020-12-10 22:30:00 [facility] 2020-12-10 22:24:00 Mo [facility] TROPONIN I 2020-12-10 22:24:00 [facility] HEPATIC FUNCTION PANEL ([id number]) (ALB,T.PRO,BILI T,BU/BC,ALT,AST,ALK PHOS) 2020-12-10 22:24:00 Mo [facility] BASIC METABOLIC PANEL (NA, K, CL, CO2, GLUCOSE, BUN, CREATININE, CA) 2020-12-10 22:24:00 Bal Hassan [facility] CBC WITH DIFF 2020-12-10 22:24:00 Bal Hassan [facility] D-DIMER 2020-12-10 22:24:00 Bal Hassan [facility] N-TERMINAL PRO-BNP 2020-12-10 22:24:00 Mirtha Hassan [facility] POCT TEST 2020-12-04 21:18:00 [facility] 2020-12-04 21:17:00 Hernan [facility] LIPASE 2020-12-04 20:20:00 Hernan [facility] TROPONIN I 2020-12-04 20:20:00 Hernan [facility] HEPATIC FUNCTION PANEL ([id number]) (ALB,T.PRO,BILI T,BU/BC,ALT,AST,ALK PHOS) 2020-12-04 20:20:00 Hernan [facility] BASIC METABOLIC PANEL (NA, K, CL, CO2, GLUCOSE, BUN, CREATININE, CA) 2020-12-04 20:20:00 Hernan [facility] CBC WITH DIFF 2020-12-04 20:20:[address] [facility] XR CHEST 1 VW 2020-12-04 20:16:54 [facility]+ [facility]W LEFT 2020-12-04 20:16:54 [facility] CONS[facility]/REFUSAL FOR DIAGNOSIS AND TREATMENT 2020-12-04 19:43:45 Doctor Unassigned, August [facility] XR CHEST 1 VW 2020-11-04 02:24:02 Olivia Garcia [facility] URINE DRUG (IMMUNOASSAY) - 4 ER PANEL 2020-11-04 02:19:00 Olivia Garcia [facility] URINALYSIS 2020-11-04 02:19:00 Olivia Garcia [facility] LIPASE 2020-11-04 02:16:00 Olivia Garcia [facility] TROPONIN I 2020-11-04 02:16:00 Olivia Garcia [facility] COMP. METABOLIC PANEL ([id number]) 2020-11-04 02:16:00 Olivia Garcia [facility] CBC WITH DIFF 2020-11-04 02:16:00 Olivia Garcia [facility] PROTHROMBIN TIME / INR 2020-11-04 02:16:00 Lucia Garcia [facility] ACTIVATED PARTIAL THRMPLAS MARCIO 2020-11-04 02:16:00 Olivia Garcia [facility] CONSENT/REFUSAL FOR DIAGNOSIS AND TREATMENT 2020-11-04 01:11:16 Doctor Unassigned, August [facility] XR CHEST 1 VW 2020-09-17 17:32:21 Leeanne Wise [facility] RAPID STREP SCREEN FOR GROUP A 2020-09-17 16:31:00 Leeanne Wise [facility] COVID-19 (ID NOW RAPID TESTING) 2020-09-17 16:31:00 Leeanne Wise [facility] NOTICE OF PRIVACY PRACTICES 2020-09-17 15:47:38 Doctor Unassigned, August [facility] CONSENT/REFUSAL FOR DIAGNOSIS AND TREATMENT 2020-09-17 15:47:07 Doctor Unassigned, August [facility] XR FOREARM 2 VW LEFT 2020-09-07 06:59:53 Saleem Edward [facility] XR HAND 3+ VW LEFT 2020-09-07 06:59:53 Saleem Edward [facility] NOTICE OF PRIVACY PRACTICES 2020-09-07 06:06:09 Doctor Unassigned, August [facility] CONSENT/REFUSAL FOR DIAGNOSIS AND TREATMENT 2020-09-07 06:03:10 Doctor Unassigned, August [facility] CT ABDOMEN PELVIS W CONTRAST 2020-08-28 09:16:08 Olivia Garcia [facility] POCT TEST 2020-08-28 08:45:00 Olivia Garcia [facility] URINALYSIS 2020-08-28 08:43:00 Olivia Garcia [facility] LIPASE 2020-08-28 08:09:00 Olivia Garcia [facility] COMP. METABOLIC PANEL ([id number]) 2020-08-28 08:09:00 Olivia Garcia [facility] CBC WITH DIFF 2020-08-28 08:09:00 Olivia [facility] 2020-08-14 18:10:03 Best Taylor [facility] LIPASE 2020-08-14 17:58:00 Best Taylor [facility] TROPONIN I 2020-08-14 17:58:00 Best Taylor [facility] COMP. METABOLIC PANEL ([id number]) 2020-08-14 17:58:00 Best Taylor [facility] CBC WITH DIFF 2020-08-14 17:58:00 Best Taylor [facility] URINALYSIS 2020-08-14 17:58:00 Best Taylor [facility] LACTIC ACID WHOLE BLOOD 2020-08-14 17:58:00 Sophie Taylor [facility] ADC / LCC - DRUG SCREEN TRIAGE 2020-08-14 17:58:00 Best Taylor [facility] CONSENT/REFUSAL FOR DIAGNOSIS AND TREATMENT 2020-08-14 17:33:16 Doctor Unassigned, August [facility] CT ABDOMEN PELVIS WO CONTRAST 2020-08-11 04:11:07 Best Taylor [facility] XR CHEST 1 VW 2020-08-11 03:56:48 Best Taylor [facility] POCT TEST 2020-08-11 03:10:00 Best Taylor [facility] BLOOD CULTURE SCREEN 2020-08-11 02:01:00 Best Taylor [facility] BLOOD CULTURE SCREEN 2020-08-11 01:45:00 Best Taylor [facility] LIPASE 2020-08-11 01:45:00 Best Taylor [facility] TROPONIN I 2020-08-11 01:45:[address] HEPATIC FUNCTION PANEL ([id number]) (ALB,T.PRO,BILI T,BU/BC,ALT,AST,ALK PHOS) 2020-08-11 01:45:00 Best Taylor [facility] BASIC METABOLIC PANEL (NA, K, CL, CO2, GLUCOSE, BUN, CREATININE, CA) 2020-08-11 01:45:00 Best Taylor [facility] CBC WITH DIFF 2020-08-11 01:45:00 Best Taylor [facility] URINALYSIS 2020-08-11 01:45:00 Best Taylor [facility] LACTIC ACID WHOLE BLOOD 2020-08-11 01:45:00 Sophie Taylor [facility] COVID-19 (ID NOW RAPID TESTING) 2020-08-11 01:45:00 Best Taylor [facility] CONSENT/REFUSAL FOR DIAGNOSIS AND TREATMENT 2020-08-11 00:12:54 Doctor Unassigned, August [facility] XR FOREARM 2 VW LEFT 2020-08-07 14:03:06 [facility] COVID-19 (ID NOW RAPID TESTING) 2020-08-07 13:35:00 Roberto Richards [facility] NOTICE OF PRIVACY PRACTICES 2020-08-07 13:13:25 Doctor Unassigned, August [facility] CONSENT/REFUSAL FOR DIAGNOSIS AND TREATMENT 2020-08-07 13:11:06 Doctor Unassigned, August [facility] CONSENT/REFUSAL FOR DIAGNOSIS AND TREATMENT 2020-08-07 13:10:57 Doctor Unassigned, August [facility] TROPONIN I 2020-07-01 02:03:00 Abdias Robertson [facility] POCT TEST 2020-07-01 00:51:00 Abdias Robertson [facility] URINALYSIS 2020-07-01 00:48:00 Abdias Robertson [facility] CBC WITH DIFF 2020-07-01 00:12:00 Abdias [facility] EXTRA TUBE LT. BLUE 2020-07-01 00:12:00 Abdias Robertson [facility] LIPASE 2020-07-01 00:09:00 Abdias Robertson [facility] TROPONIN I 2020-07-01 00:09:00 Abdias Rboertson [facility] BASIC METABOLIC PANEL (NA, K, CL, CO2, GLUCOSE, BUN, CREATININE, CA) 2020-07-01 00:09:00 Jessica [place] [facility] ADC,CLC OR LCC ONLY - INFLUENZA A & B DIRECT ANTIGEN 2020-07-01 00:09:00 Jessica [facility] N-TERMINAL PRO-BNP 2020-07-01 00:09:00 Jessica [place] [facility] XR CHEST 1 VW 2020-07-01 00:07:07 Abdias Robertson [facility] NOTICE OF PRIVACY PRACTICES 2020-06-30 23:27:46 Doctor Unassigned, August [facility] CT CERVICAL SPINE WO CONTRAST 2020-06-28 23:12:00 Narayan Narvaez [facility] CONSENT/REFUSAL FOR DIAGNOSIS AND TREATMENT 2020-06-28 21:52:44 Doctor Unassigned, August [facility] POCT TEST 2020-06-13 01:50:00 Leeanne Wise [facility] XR CHEST 1 VW 2020-06-13 01:18:17 Leeanne Wise [facility] URINALYSIS 2020-06-13 00:34:00 Leeanne Wise [facility] COVID-19 (ID NOW RAPID TESTING) 2020-06-13 00:34:00 Leeanne Wise [facility] LIPASE 2020-06-13 00:33:00 Leeanne Wise [facility] TROPONIN I 2020-06-13 00:33:00 Leeanne Wise [facility] HEPATIC FUNCTION PANEL ([id number]) (ALB,T.PRO,BILI T,BU/BC,ALT,AST,ALK PHOS) 2020-06-13 00:33:00 Leeanne Wise [facility] BASIC METABOLIC PANEL (NA, K, CL, CO2, GLUCOSE, BUN, CREATININE, CA) 2020-06-13 00:33:00 Leeanne Wise [facility] CBC WITH DIFF 2020-06-13 00:33:00 Leeanne Wise [facility] D-DIMER 2020-06-13 00:33:00 Leeanne Wise [facility] CONSENT/REFUSAL FOR DIAGNOSIS AND TREATMENT 2020-06-12 23:27:48 Doctor Unassigned, August [facility] COVID-19 (ID NOW RAPID TESTING) 2020-05-16 23:50:00 Bushra Rios [facility] LIPASE 2020-05-16 23:21:00 [facility] ([id number]) (ALB,T.PRO,BILI T,BU/BC,ALT,AST,ALK PHOS) 2020-05-16 23:21:00 Bushra Rios [facility] BASIC METABOLIC PANEL (NA, K, CL, CO2, GLUCOSE, BUN, CREATININE, CA) 2020-05-16 23:21:00 Bushra Rios [facility] CBC WITH DIFF 2020-05-16 23:21:00 [facility] 2020-05-15 07:42:00 Roberto Richards [facility] CT ABDOMEN PELVIS W CONTRAST 2020-05-15 06:56:53 Roberto Richards [facility] CT HEAD WO CONTRAST 2020-05-15 06:56:27 Alberta Richards [facility] POCT TEST 2020-05-15 05:53:00 Alberta Richards [facility] LIPASE 2020-05-15 05:52:00 Roberto Richadrs [facility] HEPATIC FUNCTION PANEL ([id number]) (ALB,T.PRO,BILI T,BU/BC,ALT,AST,ALK PHOS) 2020-05-15 05:52:00 Roberto Richards [facility] BASIC METABOLIC PANEL (NA, K, CL, CO2, GLUCOSE, BUN, CREATININE, CA) 2020-05-15 05:52:00 Roberto Richards [facility] ETHANOL 2020-05-15 05:52:00 Roberto Richards [facility] CBC WITH DIFF 2020-05-15 05:52:00 Roberto Richards [facility] PROTHROMBIN TIME / INR 2020-05-15 05:52:00 Jalen Richards [facility] ACTIVATED PARTIAL THRMPLAS MARCIO 2020-05-15 05:52:00 Roberto Richards [facility] URINALYSIS 2020-05-15 05:52:00 Roberto Richards [facility] ADC / LCC - DRUG SCREEN TRIAGE 2020-05-15 05:52:00 Roberto Richards [facility] NOTICE OF PRIVACY PRACTICES 2020-05-15 05:12:38 Doctor Unassigned, August [facility] CONSENT/REFUSAL FOR DIAGNOSIS AND TREATMENT 2020-05-15 05:12:26 Doctor Unassigned, August [facility] Encounters Start Date/Time End Date/Time Encounter Type Admission Type Attending [facility] Care Facility Care Department Encounter ID Source 2024-04-22 09:15:00 2024-04-22 09:15:00 Outpatient FARTUN GILLESPIE [id number] [facility] 2024-03-06 11:00:00 2024-03-06 11:00:00 Outpatient JOANNE MONTES [id number] [facility] 2024-02-06 11:00:00 2024-02-06 11:00:00 Outpatient GISELLE OSORIO [id number] [facility] 2024-02-06 10:40:00 2024-02-06 10:40:00 Outpatient KELLEE DORMAN [id number] [facility] 2024-02-06 00:00:00 2024-02-06 00:00:00 Outpatient HUNDL, JOANNE DORMAN [id number] [facility] 2024-02-05 00:00:00 2024-02-05 00:00:00 Outpatient HUNDL, JOANNE DORMAN [id number] [facility]24-[facility]-14 09:30:00 2024-01-14 09:30:00 Outpatient HUNDL, JOANNE DORMAN [id number] [facility] 2024-01-09 00:00:00 2024-01-09 00:00:00 Outpatient HUNDL[facility]OR[id number] [facility] 00:00:00 2024-01-06 00:00:00 Outpatient HUNDL, JOANNE DORMAN [id number] [facility] 2024-01-03 00:00:00 2024-01-03 00:00:00 Outpatient HUNDL, JOANNE DORMAN [id number] [facility] 2024-01-02 14:00:00 2024-01-02 14:00:00 Outpatient HUNDL, JOANNE DORMAN [id number] [facility] 2023-12-13 09:30:00 2023-12-13 09:30:00 Outpatient HUNDL, [facility]ANNE DORMAN [id number] [facility] 2023-12-09 00:00:00 2023-12-09 00:00:00 Outpatient HUNDL, JOANNE DORMAN [id number] [facility] 2023-12-05 00:00:00 2023-12-05 00:00:00 Outpatient HUNDL, JOANNE DORMAN [id number] [facility] 2023-12-03 11:45:00 2023-12-03 11:45:00 Outpatient LABGerman DORMAN [id number] [facility] 2023-12-03 11:00:00 2023-12-03 11:00:00 Outpatient HUNDL, [facility]AN[facility] DORMAN [id number] [facility] 2023-11-26 00:00:00 2023-11-26 00:00:00 Outpatient JOANNE MONTES [id number] [facility] 2023-10-31 00:00:00 2023-10-31 00:00:00 Outpatient COSMO DORMAN [id number] [facility] 2023-10-31 00:00:00 2023-10-31 00:00:00 Outpatient CSOMO DORMAN [id number] [facility] 2023-10-29 14:15:00 2023-10-29 14:15:00 Outpatient LAB90 KELLEE DORMAN [id number] [facility] 2023-10-29 13:30:00 2023-10-29 13:30:00 Outpatient JOANNE MONTES [id number] [facility] 2023-10-10 21:31:00 2023-10-11 00:43:00 Emergency X OLIVIA GARCIA [facility] ERT [id number] [facility] 2023-10-10 21:31:00 2023-10-11 00:43:00 Emergency Frederick Garciaamanda Shankar [facility] [id number] [facility] 2023-08-31 18:02:00 2023-08-31 22:40:00 emergency [facility] [id number] 2023-08-31 18:02:00 2023-08-31 22:40:00 Emergency ER SHERIDAN MCMANUS [facility] [id number] [facility] 2023-07-01 19:50:00 2023-07-01 22:59:00 Emergency X ROBERTO RICHARDS [facility] ERT [id number] [facility] 2023-07-01 19:50:00 2023-07-01 22:59:00 Emergency Roberto Richards [facility] 1.2.840.114 350.1.13.10 4.2.7.2.686 [id number] [facility] 2023-06-04 23:37:00 2023-06-06 13:30:00 observatio n encounter [facility] [id number] [facility] [id number] 2023-06-04 23:37:00 2023-06-06 13:30:00 Inpatient ER SHAN BUSCH [facility] [id number] [facility] 2023-05-11 01:16:00 2023-05-13 17:04:00 observatio n encounter [facility] [id number] [facility] [id number] 24 2023-05-11 01:16:00 2023-05-13 17:04:00 Inpatient ER RIDDHI MYLES [facility] [id number] [facility] 2023-05-10 21:48:00 2023-05-10 21:48:00 Emergency ER AN IRIZARRY [facility] [id number] [facility] 2023-05-09 17:40:00 2023-05-09 20:30:00 Emergency X NARAYAN NARVAEZ [facility] ERT [id number] [facility] 2023-05-09 17:40:00 2023-05-09 20:30:00 Emergency Narayan Narvaez [facility] 1.2.840.114 350.1.13.10 4.2.7.2.686 [id number] [facility] 2023-05-05 21:31:00 2023-05-06 03:15:00 emergency [facility] [id number] 2023-05-05 21:31:00 2023-05-06 03:15:00 Emergency ER SHERIDAN MCMANUS [facility] [id number] [facility] 2023-04-30 17:18:00 2023-04-30 21:20:00 Emergency X NARAYAN NARVAEZ [facility] ERT [id number] [facility] 2023-04-30 17:18:00 2023-04-30 21:20:00 Emergency Narayan Narvaez [facility] 1.2840.114 350.1.13.10 4.2.7.2.686 [id number] [facility] 2023-04-16 20:40:00 2023-04-16 23:10:00 Emergency X ROBERTO RICHARDS [facility] ERT [id number] [facility] 2023-04-16 20:40:00 2023-04-16 23:10:00 Emergency Roberto Richards [facility] 1.2.840.114 350.1.13.10 4.2.7.2.686 [id number] [facility] 2023-04-08 17:28:00 2023-04-08 21:20:00 Emergency X Saleem EDWARD [facility] ERT [id number] [facility] 2023-04-08 17:28:00 2023-04-08 21:20:00 Emergency Saleem Edward Eleni [facility] 1.2840.114 350.1.13.10 4.2.7.2.686 [id number] [facility] 2023-03-09 20:23:00 2023-03-10 00:20:00 Emergency X ROBERTO RICHARDS [facility] ERT [id number] [facility] 2023-03-09 20:23:00 2023-03-10 00:20:00 Emergency Roberto Richards [facility] 1.2840.114 350.1.13.10 4.2.7.2.686 [id number] [id number] [facility] 2023-03-01 19:35:00 2023-03-02 01:35:00 Emergency X OLIVIA GARCIA [facility] ERT [id number] [facility] 2023-03-01 19:35:00 2023-03-02 01:35:00 Emergency Olivia Garcia [facility] 1.2.840.114 350.1.13.10 4.2.7.2.686 [id number] [facility] 2023-02-17 22:58:00 2023-02-18 02:22:00 Emergency X BRITTNI PADGETT [facility] ERT [id number] [facility] 2023-02-17 22:58:00 2023-02-18 02:22:00 Emergency PadgettBrittni [facility] 1.2.840.114 350.1.13.10 4.2.7.2.686 [id number] [facility] 2023-02-15 13:46:00 2023-02-17 16:14:00 Outpatient X JESÚS MONTERO [facility] ALTHEA [id number] [facility] 2023-02-15 13:46:00 2023-02-17 16:14:00 [facility] 1.2.840.114 350.1.13.10 4.2.7.2.686 [id number] [facility] 2022-01-17 10:48:00 2022-01-17 10:48:00 Outpatient CATHIE HUYNH [facility] [id number] Heather [facility] 2022-01-09 16:47:00 2022-01-09 20:28:00 Emergency X MELIDA LONGORIA [facility] ERT [id number] [facility] 2022-01-09 16:47:00 2022-01-09 20:28:00 Emergency Melida Longoria [facility] 1.2.840.114 350.1.13.10 4.2.7.2.686 [id number] [id number] [facility] 2021-12-13 22:16:00 2021-12-14 02:28:00 Emergency X CHARISSE WIL [facility] ERT [id number] [facility] 2021-12-13 22:16:00 2021-12-14 02:28:00 Emergency Saul Mcqueenn Belle [facility] 1.2.840.114 350.1.13.10 4.2.7.2.686 [id number] [id number] [facility] 2021-11-11 19:50:00 2021-11-11 23:17:00 Emergency X DEE WANG [facility] ERT [id number] [facility] 2021-11-11 19:50:00 2021-11-11 23:17:00 Emergency Dee Wang [facility] 1.2840.114 350.1.13.10 4.2.7.2.686 [id number] [facility] 2021-11-11 00:00:00 2021-11-11 00:00:00 Orders Only Doctor Unassigned, August [facility] 1.2.840.114 350.1.13.10 4.2.7.2.686 [id number] [facility] 2021-09-11 19:42:00 2021-09-11 23:02:00 Emergency X DEE WANG [facility] ERT [id number] [facility] 2021-09-11 19:42:00 2021-09-11 23:02:00 Emergency Dee Wang [facility] 1.2.840.114 350.1.13.10 4.2.7.2.686 [id number] [facility] 2021-08-14 23:38:00 2021-08-15 02:29:00 Emergency X OLIVIA GARCIA [facility] ERT [id number] [facility] 2021-08-14 23:38:00 2021-08-15 02:29:00 Emergency Olivia Garcia [facility] 1.2.840.114 350.1.13.10 4.2.7.2.686 [id number] [facility] 2021-05-27 23:23:00 2021-05-28 04:23:00 Emergency X CEM CHOI [facility] ERT [id number] [facility] 2021-05-27 23:23:00 2021-05-28 04:23:00 Emergency Cem Choi [facility] 1.2.840.114 350.1.13.10 4.2.7.2.686 [id number] [id number] [facility] 2021-04-10 00:00:00 2021-04-10 00:00:00 Transition of Care Shelley Rosas Haja Rios 1.2.840.114 350.1.13.10 4.2.7.2.686 [id number] [facility] 2021-04-07 16:30:00 2021-04-08 17:45:00 Hospital Encounter Roberto Richards Jelani [facility] 1.2.840.114 350.1.13.10 4.2.7.2.686 [id number] [facility] 2021-04-07 16:18:00 2021-04-07 16:18:00 Emergency X [facility] ERT [id number] [facility] 2021-01-12 03:01:00 2021-01-12 04:56:00 Emergency Narayan Narvaez [facility] 1.2.840.114 350.1.13.10 4.2.7.2.686 [id number] [id number] [facility] 2021-01-12 03:01:00 2021-01-12 03:01:00 Emergency X NARAYAN NARVAEZ [facility] ERT [id number] [facility] 2020-12-10 17:12:00 2020-12-10 21:14:00 Emergency Bal Hassan [facility] 1.2.840.114 350.1.13.10 4.2.7.2.686 [id number] [id number] [facility] 2020-12-10 17:12:00 2020-12-10 17:12:00 Emergency X BAL HASSAN [facility] ERT [id number] [facility] 2020-12-04 14:50:00 2020-12-04 17:08:00 Emergency EbTremaine stratton [facility] 1.2.840.114 350.1.13.10 4.2.7.2.686 [id number] [facility] 2020-12-04 14:50:00 2020-12-04 17:08:00 Emergency X TREMAINE BECERRA [facility] ERT [id number] [facility] 2020-11-03 20:44:00 2020-11-03 23:34:00 Emergency Leeanne Wise [facility] 1.2.840.114 350.1.13.10 4.2.7.2.686 [id number] [facility] 2020-11-03 20:44:00 2020-11-03 23:34:00 Emergency X LEEANNE WISE [facility] ERT [id number] [facility] 2020-09-19 12:32:00 2020-09-19 14:15:00 Emergency ER MORA POLLOCK [facility] [id number] [facility] 2020-09-17 09:53:00 2020-09-17 11:55:00 Emergency Leeanne Wise [facility] 1.2.840.114 350.1.13.10 4.2.7.2.686 [id number] 2020-09-17 09:53:00 2020-09-17 11:55:00 Emergency DreLeeanne almonte [facility] 1.2.840.114 350.1.13.10 4.2.7.2.686 [id number] [facility] 2020-09-17 09:53:00 2020-09-17 11:55:00 Emergency X LEEANNE WISE [facility] ERT [id number] [facility] 2020-09-07 00:37:00 2020-09-07 01:41:00 Emergency Saleem Edward [facility] 1.2.840.114 350.1.13.10 4.2.7.2.686 [id number] 2020-09-07 00:37:00 2020-09-07 01:41:00 Emergency Saleem Edward [facility] 1.2.840.114 350.1.13.10 4.2.7.2.686 [id number] [id number] [facility] 2020-09-07 00:37:00 2020-09-07 01:41:00 Emergency X Saleem EDWARD [facility] ERT [id number] [facility] 2020-09-07 00:00:00 2020-09-07 00:00:00 Orders Only Doctor Unassigned, August [facility] 1.2.840.114 350.1.13.10 4.2.7.2.686 [id number] 2020-09-07 00:00:00 2020-09-07 00:00:00 Orders Only Doctor Unassigned, August [facility] 1.2.840.114 350.1.13.10 4.2.7.2.686 [id number] [facility] 2020-08-28 01:59:00 2020-08-28 04:40:00 Emergency Olivia Garcia [facility] 1.2.840.114 350.1.13.10 4.2.7.2.686 [id number] [id number] 2020-08-28 01:59:00 2020-08-28 04:40:00 Emergency Olivia Garcia [facility] 1.2.840.114 350.1.13.10 4.2.7.2.686 [id number] [id number] [facility] 2020-08-28 01:59:00 2020-08-28 01:59:00 Emergency X OLIVIA GARCIA [facility] ERT [id number] [facility] 2020-08-14 11:48:00 2020-08-14 13:42:00 Emergency Best Taylor [facility] 1.2.840.114 350.1.13.10 4.2.7.2.686 [id number] [id number] 2020-08-14 11:48:00 2020-08-14 13:42:00 Emergency Best Taylor [facility] 1.2.840.114 350.1.13.10 4.2.7.2.686 [id number] 084 [id number] [facility] 2020-08-14 11:33:00 2020-08-14 11:33:00 Emergency X BEST TAYLOR [facility] ERT [id number] [facility] 2020-08-10 18:35:00 2020-08-11 00:05:00 Emergency Claudia, [facility] 1.2.840.114 350.1.13.10 4.2.7.2.686 [id number] [facility] 2020-08-10 18:35:00 2020-08-11 00:05:00 Emergency X OLIVIA GARCIA [facility] ERT [id number] [facility] 2020-08-10 18:35:00 2020-08-11 00:05:00 Emergency [facility] 1.2.840.114 350.1.13.10 4.2.7.2.686 [id number] 084 [id number] 2020-08-07 07:19:00 2020-08-07 09:02:00 Emergency [facility] 1.2.840.114 350.1.13.10 4.2.7.2.686 [id number] [id number] [facility] 2020-08-07 07:19:00 2020-08-07 09:02:00 Emergency [facility] 1.2.840.114 350.1.13.10 4.2.7.2.686 [id number] [id number] 2020-08-07 07:12:00 2020-08-07 07:12:00 Emergency X [facility] ERT [id number] [facility] 2020-08-07 00:00:00 2020-08-07 00:00:00 Orders Only Doctor Unassigned, August [facility] 1.2.840.114 350.1.13.10 4.2.7.2.686 [id number] [facility] 2020-08-07 00:00:00 2020-08-07 00:00:00 Orders Only Doctor Unassigned, August [facility] 1.2.840.114 350.1.13.10 4.2.7.2.686 [id number] 2020-07-01 00:00:00 2020-07-01 00:00:00 Letter (Out) [facility] 1.2.840.114 350.1.13.10 4.2.7.2.686 [id number] [facility] 2020-07-01 00:00:00 2020-07-01 00:00:00 Letter (Out) [facility] 1.2.840.114 350.1.13.10 4.2.7.2.686 [id number] 2020-06-30 17:46:00 2020-06-30 21:06:00 Emergency Abdias Robertson [facility] 1.2.840.114 350.1.13.10 4.2.7.2.686 [id number] [id number] [facility] 2020-06-30 17:46:00 2020-06-30 21:06:00 Emergency X ABDIAS ROBERTSON [facility] ERT [id number] [facility] 2020-06-30 17:46:00 2020-06-30 21:06:00 Emergency Abdias Robertson [facility] 1.2.840.114 350.1.13.10 4.2.7.2.686 [id number] [id number] 2020-06-28 16:00:00 2020-06-28 18:08:00 Emergency Singer [facility] 1.2.840.114 350.1.13.10 4.2.7.2.686 [id number] [id number] [facility] 2020-06-28 16:00:00 2020-06-28 18:08:00 Emergency [facility] 1.2.840.114 350.1.13.10 4.2.7.2.686 [id number] [id number] 2020-06-28 16:00:00 2020-06-28 16:00:00 Emergency X NARAYAN NARVAEZ [facility] ERT [id number] [facility] 2020-06-14 00:00:00 2020-06-14 00:00:00 Telephone [facility] 1.2.840.114 350.1.13.10 4.2.7.2.686 [id number] [facility] 2020-06-14 00:00:00 2020-06-14 00:00:00 [facility] 1.2.840.114 350.1.13.10 4.2.7.2.686 [id number] 2020-06-12 17:40:00 2020-06-12 22:05:00 Emergency Leeanne Wise [facility] 1.2.840.114 350.1.13.10 4.2.7.2.686 [id number] [id number] [facility] 2020-06-12 17:40:00 2020-06-12 22:05:00 Emergency Leeanne Wise [facility] 1.2.840.114 350.1.13.10 4.2.7.2.686 [id number] [id number] 2020-06-12 17:28:00 2020-06-12 17:28:00 Emergency X [facility] ERT [id number] [facility] 2020-05-16 17:10:00 2020-05-16 19:01:00 Emergency Bushra Rios Colin [facility] 1.2.840.114 350.1.13.10 4.2.7.2.686 [id number] [id number] [facility] 2020-05-16 17:10:00 2020-05-16 19:01:00 Emergency Bsuhra Rios [facility] 1.2.840.114 350.1.13.10 4.2.7.2.686 [id number] [id number] 2020-05-16 17:10:00 2020-05-16 17:10:00 Emergency X BUSHRA RIOS [facility] ERT [id number] [facility] 2020-05-14 23:18:00 2020-05-15 02:54:00 Emergency Roberto Richards [facility] 1.2.840.114 350.1.13.10 4.2.7.2.686 [id number] [facility] 2020-05-14 23:18:00 2020-05-15 02:54:00 Emergency Roberto Richards [facility] 1.2.840.114 350.1.13.10 4.2.7.2.686 [id number] 2020-05-14 23:14:00 2020-05-14 23:14:00 Emergency X ROBERTO RICHARDS [facility] ERT [id number] [facility] 2009-07-18 05:35:00 2009-07-18 09:19:00 Emergency ER SINCERE FRANK [facility] [id number] [facility] 2008-10-08 09:55:00 2008-10-08 14:19:00 Emergency ER GUMARO ALVAREZ [facility] [id number] [facility] 2008-03-26 15:21:00 2008-03-26 18:08:00 Emergency ER NEIL WILKINS [facility] [id number] [facility] 2005-05-25 06:35:00 2005-05-25 06:35:00 Outpatient LISA LUNA [facility] [id number] [facility] 2005-05-16 21:57:00 2005-05-16 23:40:00 Emergency ER JW SOLORZANO [facility] [id number] [facility] 2005-04-24 18:49:00 2005-04-24 22:40:00 Emergency ER JW SOLORZANO [facility] [id number] [facility] 2004-12-27 20:30:00 2004-12-28 01:40:00 Emergency ER SANIA SIBLEY [facility] [id number] [facility] 2003-12-07 22:40:00 2003-12-08 02:48:00 Emergency ER GINA MARTIN [facility] [id number] [facility] 2003-12-06 13:57:00 2003-12-06 18:30:00 Emergency ER YIN RIOS [facility] [id number] [facility] 2003-08-31 19:43:00 2003-08-31 22:55:00 Emergency ER GUMARO ALVAREZ [facility] [id number] [facility] 2003-08-22 19:26:00 2003-08-22 22:10:00 Emergency ER ALBERTO CASTLE [facility] [id number] [facility] 2002-01-30 22:41:00 2002-01-31 01:29:00 Emergency ER ANTHONY SCHNEIDER [facility] [id number] [facility] 2001-10-28 09:15:00 2001-10-28 11:25:00 Emergency ER LINDA DARCIE [facility] [id number] [facility] 2001-04-15 19:14:00 2001-04-15 23:10:00 Emergency ER YESICA, ARLETTE [facility] [id number] [facility] 2000-12-25 21:52:00 2000-12-26 00:15:00 Emergency ER GISELA RIOS [facility] [id number] [facility] 2000-12-23 18:51:00 2000-12-23 22:00:00 Emergency ER HUGO COFFMAN [facility] [id number] [facility] 1999-10-26 21:11:00 1999-10-27 00:20:00 Emergency ER JW SOLORZANO [facility] [id number] [facility] Results Test Description Test Time Test Comments [...] clear. There are nosuspicious focal osseous lesions. [id number] 04:38:58* Test Item Value Reference Range Interpretation Comme nts LIPASE (test code = 3899395044) 136 U/L 0-220 Lab Interpretation (test cod e = 50223-8) [facility] [id number] 04:19:14* Test Item Value Reference Range Interpretation [...] 32.2 g/dL 31.6-35.1 RDW-SD (test code = 71743-0) 50.2 fL 39.0-49.9 H RDW-CV (test code = 788-0) 17.3 % 12.0-15.5 H PLT (test code = 777-3) 377 166-358 H MPV (test code = 44005-9) 9.4 fL 9.5-12.9 L NRBC/100 WBC (test code = 3978608816) 0.0 0.0-10.0 NRBC x10^3 (test code = 3518701764) See_Comment [Automated messa ge] The system which generated this result transmitted reference range: 10*3/?L. The reference range was not used to interpret this result as normal/abnormal. GRAN MAT (NEUT) % (test code = 770-8) 65.3 % IMM GRAN % (test code = 8094021700) 0.40 % LYMPH % (test code = 736-9) 26.1 % MONO % (test code = 5905-5) 6.2 % EOS % (test code = 713-8) 1.6 % BASO % (test code = 706-2) 0.4 % GRAN MAT x10^3(ANC) (test code = 8503695354) 7.33 10*3/uL 1.88-7.09 H IMM GRAN x10^3 (test code = 6652185103) 0.04 10*3/uL 0.00-0.06 LYMPH x10^3 (test code = 731-0) 2.93 10*3/uL 1.32-3.29 MONO x10^3 (test code = 742-7) 0.70 10*3/uL 0.33-0.92 EOS x10^3 (test code = 711-2) 0.18 10*3/uL 0.03-0.39 BASO x10^3 (test code = 704-7) 0.05 10*3/uL 0.01-0.07 Lab Interpretation (test code = 59421-1) Abnormal [facility] [id number] 03:40:00* Test Item Value Reference Range Interpretation Comme nts POCT PREG (test code = 1605) Negative On board controls acceptable with C Line (test code = 3574) Yes POCT PREG LOT # (test code = 3575) [id number] POCT PREG TEST DATE ( test code = 3576) 2024-10-13 Lab Interpretation (test cod e = 85940-5) [facility] [id number] 04:35:04Ordering physician: ROBERTO RICHARDS INDICATION: Abdominal pain COMPARISON: CT of the abdomen and pelv is dated 03/09/2023 FINDINGS: Supine AP view of the abdomen and pelvis. There is no bowelobstruction or generalized constipation.[facility] [id number] 02:30:00* Test Item Value Reference Range Interpretation Comme nts POCT PREG (test code = 1605) Negative On board controls acceptable with C Line (test code = 3574) Yes POCT PREG LOT # (test code = 3575) [id number] POCT PREG TEST DATE ( test code = 357) 2024-09-15 Lab Interpretation (test cod e = 63147-7) Normal [facility] WITH [id number] 00:05:06* Test Item Value Reference Range Interpretation [...] 34.2 g/dL 31.6-35.1 RDW-SD (test code = 80508-7) 41.5 fL 39.0-49.9 RDW-CV (test code = 788-0) 14.5 % 12.0-15.5 PLT (test code = 777-3) 384 See_Comment H [Automated messa ge] The system which generated this result transmitted reference range: 166 - 358 10*3/?L. The reference range was not used to interpret this result as normal/abnormal. MPV (test code = 94814-0) 9.6 fL 9.5-12.9 GRAN MAT (NEUT) % (test code = 770-8) 66.0 % IMM GRAN % (test code = 6114915489) 0.50 % LYMPH % (test code = 736-9) 27.4 % MONO % (test code = 5905-5) 4.6 % EOS % (test code = 713-8) 1.1 % BASO % (test code = 706-2) 0.4 % GRAN MAT x10^3(ANC) (test code = 7159215097) 7.96 10*3/uL 1.88-7.09 H IMM GRAN x10^3 (test code = 3826279774) 0.06 10*3/uL 0.00-0.06 LYMPH x10^3 (test code = 731-0) 3.30 10*3/uL 1.32-3.29 H MONO x10^3 (test code = 742-7) 0.56 10*3/uL 0.33-0.92 EOS x10^3 (test code = 711-2) 0.13 10*3/uL 0.03-0.39 BASO x10^3 (test code = 704-7) 0.05 10*3/uL 0.01-0.07 Lab Interpretation (test code = 15885-1) [id number] 23:27:13* Test Item Value Reference Range Interpretation Comme nts NA (test code = 1702289386) 137 mmol/L 135-145 K (test code = 8847396705) 3.3 mmol/L 3.5-5.0 L CL (test code = 6201938667) 103 mmol/L 98-108 CO2 TOTAL (test code = 3616890356) 20 mmol/L 23-31 L AGAP (test code = 6351853025) 14 2-16 BUN (test code = 1090337331) 5 mg/dL 7-23 L GLUCOSE (test code = 3690443816) 146 mg/dL 70-110 H CREATININE (test code = 8537262520) 0.60 mg/dL 0.50-1.04 TOTAL BILI (test code = 9620829626) 0.3 mg/dL 0.1-1.1 CALCIUM (test code = 4097776119) 9.3 mg/dL 8.6-10.6 T PROTEIN (test code = 7840689284) 7.9 g/dL 6.3-8.2 ALBUMIN (test code = 1461696282) 4.4 g/dL 3.5-5.0 ALK PHOS (test code = 8935023441) 105 U/L 34-122 ALTv (test code = 1742-6) 38 U/L 5-35 H AST(SGOT) (test code = 9106197244) 21 U/L 13-40 eGFR (test code = 93334-9) 113.7 mL/min/1.73m2 CKD-EPI eGFR (2020). Assuming creatinine has been stable day-to-day for at least three months, the eGFR indicates Category G1 (>= 90 mL/min/1.73 m2) Lab Interpretation (test code = 73984-1) [facility]* Test Item Value Reference Range Interpretation Comme nts LIPASE (test code = 8151361573) 142 U/L 0-220 Lab Interpretation (test cod e = 10296-1) [facility]18358[facility]2023-04-30 23:41:47* Test Item Value Reference Range Interpretation Comme nts NA (test code = 6302688787) 139 mmol/L 135-145 K (test code = 0823128600) 3.3 mmol/L 3.5-5.0 L CL (test code = 8796408011) 105 mmol/L 98-108 CO2 TOTAL (test code = 2792760337) 20 mmol/L 23-31 L AGAP (test code = 6022554546) 14 2-16 BUN (test code = 4294000175) 6 mg/dL 7-23 L GLUCOSE (test code = 7451648897) 119 mg/dL 70-110 H CREATININE (test code = 9775918491) 0.59 mg/dL 0.50-1.04 TOTAL BILI (test code = 0988083241) 0.3 mg/dL 0.1-1.1 CALCIUM (test code = 6635246880) 9.7 mg/dL 8.6-10.6 T PROTEIN (test code = 6750478076) 7.6 g/dL 6.3-8.2 ALBUMIN (test code = 4622673709) 4.2 g/dL 3.5-5.0 ALK PHOS (test code = 2946899813) 78 U/L 34-122 ALTv (test code = 1742-6) 24 U/L 5-35 AST(SGOT) (test code = 0299971675) 24 U/L 13-40 eGFR (test code = 3838884033) 110.7 mL/min/1.73m2 DARWIN (test code = DARWIN) [...] imaging tests). Lab Interpretation (test code = 91193-9) Abnormal [facility] WITH [id number] 23:29:07* Test Item Value Reference Range Interpretation Comme nts WBC (test code = 6690-2) 11.56 See_Comment H [Automated [employer]] The system which generated this result transmitted reference range: 4.30 - 11.10 10*3/?L. The reference range was not used to interpret this result as normal/abnormal. RBC (test code = 789-8) 5.02 See_Comment [Automated [employer]] The system which generated this result transmitted [...] 33.7 g/dL 31.6-35.1 RDW-SD (test code = 89028-3) 41.5 fL 39.0-49.9 RDW-CV (test code = 788-0) 14.3 % 12.0-15.5 PLT (test code = 777-3) 335 See_Comment [Automated [employer]] The system which generated this result transmitted reference range: 166 - 358 10*3/?L. The reference range was not used to interpret this result as normal/abnormal. MPV (test code = 72150-9) 9.7 fL 9.5-12.9 NRBC/100 WBC (test code = 8913743175) 0.0 See_Comment [Automated me ssage] The system which generated this result transmitted reference range: 0.0 - 10.0 /100 WBCs. The reference range was not used to interpret this result as normal/abnormal. NRBC x10^3 (test code = 8267168628) See_Comment [Automated messa ge] The system which generated this result transmitted reference range: 10*3/?L. The reference range was not used to interpret this result as normal/abnormal. GRAN MAT (NEUT) % (test code = 770-8) 65.7 % IMM GRAN % (test code = 2483378044) 0.50 % LYMPH % (test code = 736-9) 25.4 % MONO % (test code = 5905-5) 6.7 % EOS % (test code = 713-8) 1.2 % BASO % (test code = 706-2) 0.5 % GRAN MAT x10^3(ANC) (test code = 3866913140) 7.59 10*3/uL 1.88-7.09 H IMM GRAN x10^3 (test code = 9858980496) 0.06 10*3/uL 0.00-0.06 LYMPH x10^3 (test code = 731-0) 2.94 10*3/uL 1.32-3.29 MONO x10^3 (test code = 742-7) 0.77 10*3/uL 0.33-0.92 EOS x10^3 (test code = 711-2) 0.14 10*3/uL 0.03-0.39 BASO x10^3 (test code = 704-7) 0.06 10*3/uL 0.01-0.07 Lab Interpretation (test code = 84770-1) Abnormal [facility] [id number] 22:59:00* Test Item Value Reference Range Interpretation Comme nts POCT PREG (test code = 1605) Negative On board controls acceptable with C Line (test code = 3574) Yes POCT PREG LOT # (test code = 3575) [id number] POCT PREG TEST DATE ( test code = 3576) 07/10/2024 Lab Interpretation (test cod e = 87072-4) [id number] 02:36:34* Test Item Value Reference Range Interpretation Comme nts TROPONIN I (test code = 2178098899) 0.000 ng/mL <=0.034 DARWIN (test code = [...] of biotin. Lab Interpretation (test code = 89773-2) [facility] [id number] 02:34:17* Test Item Value Reference Range Interpretation Comme [facility] NT-proBNP (test code = 27988-9) 40 pg/mL <=125 Lab Interpretation (test cod e = 49698-2) Normal [facility] TH[facility] [id number] 02:33:37* Test Item Value Reference Range Interpretation Comme [facility] APTT Patient (test code = 3173-2) 25 See_Comment [Automated message] The system which generated this result transmitted reference range: 23 - 38 Seconds. The reference range was not used to interpret this result as normal/abnormal. DARWIN (test code = DARWIN) The [facility] patient population mean normal value for aPTT is 30 seconds. Lab Interpretation (test code = 26021-5) Normal [facility] / [id number] 02:31:36* Test Item Value Reference Range Interpretation Comme nts PROTIME PATIENT (test code = 5964-2) 12.6 See_Comment [Automated [employer] ge] The system which generated this result transmitted reference range: 12.0 - 14.7 Seconds. The reference range was not used to interpret this result as normal/abnormal. INR (test code = 6301-6) 1.0 Normal INR <1.1; Warfarin Therapeutic range 2.0 to 3.0 or 2.5 to 3.5, depending upon the indications. Lab Interpretation (test code = 86280-8) Normal [facility]. METABOLIC PANEL (74411)2023-04-17 02:24:56* Test Item Value Reference Range Interpretation Comme nts NA (test code = 9382764267) 142 mmol/L 135-145 K (test code = 2860821655) 3.1 mmol/L 3.5-5.0 L CL (test code = 0342630698) 108 mmol/L 98-108 CO2 TOTAL (test code = 4898540287) 20 mmol/L 23-31 L AGAP (test code = 2259429011) 14 2-16 BUN (test code = 5150449705) 4 mg/dL 7-23 L GLUCOSE (test code = 9174219256) 107 mg/dL 70-110 CREATININE (test code = 5642327104) 0.61 mg/dL 0.50-1.04 TOTAL BILI (test code = 1527519846) 0.2 mg/dL 0.1-1.1 CALCIUM (test code = 6746136480) 9.1 mg/dL 8.6-10.6 T PROTEIN (test code = 9109092483) 7.0 g/dL 6.3-8.2 ALBUMIN (test code = 9491485135) 3.9 g/dL 3.5-5.0 ALK PHOS (test code = 3066481609) 69 U/L 34-122 ALTv (test code = 1742-6) 21 U/L 5-35 AST(SGOT) (test code = 2722160907) 21 U/L 13-40 eGFR (test code = 7822354434) 106.5 mL/min/1.73m2 DARWIN (test code = DARWIN) [...] imaging tests). Lab Interpretation (test code = 14092-6) [facility] 02:24:56* Test Item Value Reference Range Interpretation Comme nts LIPASE (test code = 9665146935) 104 U/L 0-220 Lab Interpretation (test cod e = 34878-3) Normal [facility] WITH [id number] 02:13:31* Test Item Value Reference Range Interpretation Comme nts WBC (test code = 6690-2) 10.74 See_Comment [Automated [employer]] The system which generated this result transmitted reference range: 4.30 - 11.10 10*3/?L. The reference range was not used to interpret this result as normal/abnormal. RBC (test code = 789-8) 4.75 See_Comment [Automated [employer]] The system which generated this result transmitted [...] 34.5 g/dL 31.6-35.1 RDW-SD (test code = 23289-3) 39.1 fL 39.0-49.9 RDW-CV (test code = 788-0) 13.5 % 12.0-15.5 PLT (test code = 777-3) 324 See_Comment [Automated messa ge] The system which generated this result transmitted reference range: 166 - 358 10*3/?L. The reference range was not used to interpret this result as normal/abnormal. MPV (test code = 78504-4) 9.3 fL 9.5-12.9 L NRBC/100 WBC (test code = 7943952967) 0.0 See_Comment [Automated [employer] ssage] The system which generated this result transmitted reference range: 0.0 - 10.0 /100 WBCs. The reference range was not used to interpret this result as normal/abnormal. NRBC x10^3 (test code = 2507259094) See_Comment [Automated messa ge] The system which generated this result transmitted reference range: 10*3/?L. The reference range was not used to interpret this result as normal/abnormal. GRAN MAT (NEUT) % (test code = 770-8) 65.2 % IMM GRAN % (test code = 4443988801) 0.40 % LYMPH % (test code = 736-9) 26.5 % MONO % (test code = 5905-5) 5.8 % EOS % (test code = 713-8) 1.7 % BASO % (test code = 706-2) 0.4 % GRAN MAT x10^3(ANC) (test code = 1265514099) 7.01 10*3/uL 1.88-7.09 IMM GRAN x10^3 (test code = 1212733233) 0.04 10*3/uL 0.00-0.06 LYMPH x10^3 (test code = 731-0) 2.85 10*3/uL 1.32-3.29 MONO x10^3 (test code = 742-7) 0.62 10*3/uL 0.33-0.92 EOS x10^3 (test code = 711-2) 0.18 10*3/uL 0.03-0.39 BASO x10^3 (test code = 704-7) 0.04 10*3/uL 0.01-0.07 Lab Interpretation (test code = 25592-7) [facility] [id number] 02:11:00* Test Item Value Reference Range Interpretation Comme nts POCT PREG (test code = 1605) Negative On board controls acceptable with C Line (test code = 3574) Yes POCT PREG LOT # (test code = 3575) [id number] POCT PREG TEST DATE ( test code = 3576) 2024-09-04 Lab Interpretation (test cod e = 59705-4) [facility] [id number] 23:59:14* Test Item Value Reference Range Interpretation Comme nts TROPONIN I (test code = 6374019015) 0.000 ng/mL <=0.034 DARWIN (test code = [...] of biotin. Lab Interpretation (test code = 05238-8) [facility] METABOLIC PANEL (05527)2023-04-08 23:47:52* Test Item Value Reference Range Interpretation Comme nts NA (test code = 3214565741) 138 mmol/L 135-145 K (test code = 0973477056) 3.4 mmol/L 3.5-5.0 L CL (test code = 8353101234) 103 mmol/L 98-108 CO2 TOTAL (test code = 3036030317) 22 mmol/L 23-31 L AGAP (test code = 1413329571) 13 2-16 BUN (test code = 3523635858) 6 mg/dL 7-23 L GLUCOSE (test code = 5481167062) 106 mg/dL 70-110 CREATININE (test code = 1960920907) 0.91 mg/dL 0.50-1.04 TOTAL BILI (test code = 4251626911) 0.2 mg/dL 0.1-1.1 CALCIUM (test code = 4173491065) 8.7 mg/dL 8.6-10.6 T PROTEIN (test code = 3763420523) 7.4 g/dL 6.3-8.2 ALBUMIN (test code = 0611270974) 4.1 g/dL 3.5-5.0 ALK PHOS (test code = 4452728914) 71 U/L 34-122 ALTv (test code = 1742-6) 28 U/L 5-35 AST(SGOT) (test code = 0397850713) 28 U/L 13-40 eGFR (test code = 7306504746) 67.2 mL/min/1.73m2 DARWIN (test code = DARWIN) [...] imaging tests). Lab Interpretation (test code = 77064-8) [facility] 23:47:52* Test Item Value Reference Range Interpretation Comme nts MAGNESIUM (test code = 9403021796) 2.0 mg/dL 1.7-2.4 Lab Interpretation (test cod e = 38796-1) Normal [facility] 23:47:52* Test Item Value Reference Range Interpretation Comme nts LIPASE (test code = 3672242527) 74 U/L 0-220 Lab Interpretation (test cod e = 23621-6) Normal [facility]CB WITH [id number] 23:36:30* Test Item Value Reference Range Interpretation [...] 34.5 g/dL 31.6-35.1 RDW-SD (test code = 09241-2) 39.3 fL 39.0-49.9 RDW-CV (test code = 788-0) 13.6 % 12.0-15.5 PLT (test code = 777-3) 305 See_Comment [Automated messa ge] The system which generated this result transmitted reference range: 166 - 358 10*3/?L. The reference range was not used to interpret this result as normal/abnormal. MPV (test code = 97546-8) 9.6 fL 9.5-12.9 NRBC/100 WBC (test code = 9774594935) 0.0 See_Comment [Automated [employer] ssage] The system which generated this result transmitted reference range: 0.0 - 10.0 /100 WBCs. The reference range was not used to interpret this result as normal/abnormal. NRBC x10^3 (test code = 0737421021) See_Comment [Automated messa ge] The system which generated this result transmitted reference range: 10*3/?L. The reference range was not used to interpret this result as normal/abnormal. GRAN MAT (NEUT) % (test code = 770-8) 66.5 % IMM GRAN % (test code = 0540925350) 0.30 % LYMPH % (test code = 736-9) 25.3 % MONO % (test code = 5905-5) 5.2 % EOS % (test code = 713-8) 2.3 % BASO % (test code = 706-2) 0.4 % GRAN MAT x10^3(ANC) (test code = 0489759078) 6.61 10*3/uL 1.88-7.09 IMM GRAN x10^3 (test code = 8715339832) 0.03 10*3/uL 0.00-0.06 LYMPH x10^3 (test code = 731-0) 2.52 10*3/uL 1.32-3.29 MONO x10^3 (test code = 742-7) 0.52 10*3/uL 0.33-0.92 EOS x10^3 (test code = 711-2) 0.23 10*3/uL 0.03-0.39 BASO x10^3 (test code = 704-7) 0.04 10*3/uL 0.01-0.07 Lab Interpretation (test code = 73469-3) Abnormal [facility] [id number] 02:51:00* Test Item Value Reference Range Interpretation Comme nts POCT PREG (test code = 1605) Negative On board controls acceptable with C Line (test code = 3574) Yes POCT PREG LOT # (test code = 3575) [id number] POCT PREG TEST DATE ( test code = 3576) 07/10/2024 Lab Interpretation (test cod e = 65466-5) Normal [facility] [id number] 03:26:00* Test Item Value Reference Range Interpretation Comme nts POCT PREG (test code = 1605) Negative On board controls acceptable with C Line (test code = 3574) Yes POCT PREG LOT # (test code = 3575) [id number] POCT PREG TEST DATE ( test code = 3576) Lab Interpretation (test cod e = 51671-5) [facility] 22:35:38* Test Item Value Reference Range Interpretation Comme nts LIPASE (test code = 1409082334) 2049 U/L 0-220 H Lab Interpretation (test cod e = 24391-3) Abnormal [facility] WITH [id number] 22:30:10* Test Item Value Reference Range Interpretation [...] 34.6 g/dL 31.6-35.1 RDW-SD (test code = 89523-9) 42.7 fL 39.0-49.9 RDW-CV (test code = 788-0) 14.6 % 12.0-15.5 PLT (test code = 777-3) 331 See_Comment [Automated messa ge] The system which generated this result transmitted reference range: 166 - 358 10*3/?L. The reference range was not used to interpret this result as normal/abnormal. MPV (test code = 31384-7) 9.7 fL 9.5-12.9 NRBC/100 WBC (test code = 3135285015) 0.0 See_Comment [Automated [employer] ssage] The system which generated this result transmitted reference range: 0.0 - 10.0 /100 WBCs. The reference range was not used to interpret this result as normal/abnormal. NRBC x10^3 (test code = 1180140469) See_Comment [Automated messa ge] The system which generated this result transmitted reference range: 10*3/?L. The reference range was not used to interpret this result as normal/abnormal. GRAN MAT (NEUT) % (test code = 770-8) 65.7 % IMM GRAN % (test code = 8993913096) 0.50 % LYMPH % (test code = 736-9) 26.5 % MONO % (test code = 5905-5) 5.4 % EOS % (test code = 713-8) 1.5 % BASO % (test code = 706-2) 0.4 % GRAN MAT x10^3(ANC) (test code = 1322425893) 8.05 10*3/uL 1.88-7.09 H IMM GRAN x10^3 (test code = 0301565994) 0.06 10*3/uL 0.00-0.06 LYMPH x10^3 (test code = 731-0) 3.24 10*3/uL 1.32-3.29 MONO x10^3 (test code = 742-7) 0.66 10*3/uL 0.33-0.92 EOS x10^3 (test code = 711-2) 0.18 10*3/uL 0.03-0.39 BASO x10^3 (test code = 704-7) 0.05 10*3/uL 0.01-0.07 Lab Interpretation (test code = 08242-3) [facility]OLIC PANEL (32915)2023-02-15 22:27:47* Test Item Value Reference Range Interpretation Comme nts NA (test code = 6104031007) 138 mmol/L 135-145 K (test code = 3919085887) 3.7 mmol/L 3.5-5.0 CL (test code = 4803068683) 105 mmol/L 98-108 CO2 TOTAL (test code = 3241579552) 23 mmol/L 23-31 AGAP (test code = 3686522567) 10 2-16 BUN (test code = 6437111433) 6 mg/dL 7-23 L GLUCOSE (test code = 8377759435) 92 mg/dL 70-110 CREATININE (test code = 1503698330) 0.77 mg/dL 0.50-1.04 TOTAL BILI (test code = 0940874601) 0.7 mg/dL 0.1-1.1 CALCIUM (test code = 6815644942) 9.0 mg/dL 8.6-10.6 T PROTEIN (test code = 0233902864) 7.5 g/dL 6.3-8.2 ALBUMIN (test code = 6306628138) 4.0 g/dL 3.5-5.0 ALK PHOS (test code = 7286876822) 101 U/L 34-122 ALTv (test code = 1742-6) 25 U/L 5-35 AST(SGOT) (test code = 6428410618) 36 U/L 13-40 eGFR (test code = 2844097823) 81.8 mL/min/1.73m2 DARWIN (test code = DARWIN) [...] imaging tests). Lab Interpretation (test code = 72275-8) [facility]normal [facility]-[id number] 20:56:28* Test Item Value Reference Range Interpretation Comments D-DIMER (test code = 9762898758) 0.44 See_Comment H [Automated message] The system [...] a diagnosis. Lab Interpretation (test code = 66943-2) [facility]normal [facility] [id number] 01:15:16* Test Item Value Reference Range Interpretation Comments TROPONIN I (test code = 0282118176) 0.001 ng/mL See_Comment [Automated message] The system [...] of biotin. Lab Interpretation (test code = 76491-2) Normal [facility] [id number] 22:52:31* Test Item Value Reference Range Interpretation Comments TROPONIN I (test code = 5635783779) 0.001 ng/mL See_Comment [Automated message] The system [...] of biotin. Lab Interpretation (test code = 34776-9) Normal [facility] [id number] 22:49:33* Test Item Value Reference Range Interpretation Comme nts NT-proBNP (test code = 3716002107) 145 pg/mL See_Comment H [Automated message] The system which generated this result transmitted reference range: <=125. The reference range was not used to interpret this result as normal/abnormal. DARWIN (test code = DARWIN) Biotin has been reported to cause a negative bias, interpret results relative to patient's use of biotin. Lab Interpretation (test code = 81080-8) Abnormal [facility] METABOLIC PANEL (NA, K, CL, CO2, GLUCOSE, BUN, CREATININE, CA)2022-01-09 22:40:32* Test Item Value Reference Range Interpretation Comme nts NA (test code = 3645539851) 142 mmol/L 135-145 K (test code = 0488521995) 3.3 mmol/L 3.5-5.0 L CL (test code = 7660084051) 109 mmol/L 98-108 H CO2 TOTAL (test code = 0728806257) 22 mmol/L 23-31 L AGAP (test code = 5586341149) 2-16 BUN (test code = 0938301209) 9 mg/dL 7-23 GLUCOSE (test code = 0929510983) 116 mg/dL 70-110 H CREATININE (test code = 6814443163) 0.69 mg/dL 0.50-1.04 CALCIUM (test code = 3421460085) 9.2 mg/dL 8.6-10.6 eGFR (test code = 9732670436) mL/min/1.73m2 DARWIN (test code = DARWIN) Association [...] imaging tests). Lab Interpretation (test code = 38376-9) Abnormal [facility] WITH [id number] 22:29:09* Test Item Value Reference Range Interpretation Comme nts WBC (test code = 6690-2) See_Comment [Automated [employer]] The system which generated this result transmitted reference range: 4.30 - 11.10 10*3/?L. The reference range was not used to interpret this result as normal/abnormal. RBC (test code = 789-8) See_Comment [Automated [employer]] The system which generated this result transmitted [...] 34.4 g/dL 31.6-35.1 RDW-SD (test code = 46327-0) 40.7 fL 39.0-49.9 RDW-CV (test code = 788-0) 14.1 % 12.0-15.5 PLT (test code = 777-3) See_Comment [Automated [employer]] The system which generated this result transmitted reference range: 166 - 358 10*3/?L. The reference range was not used to interpret this result as normal/abnormal. MPV (test code = 61904-7) 9.6 fL 9.5-12.9 NRBC/100 WBC (test code = 2752491052) See_Comment [Automated me ssage] The system which generated this result transmitted reference range: 0.0 - 10.0 /100 WBCs. The reference range was not used to interpret this result as normal/abnormal. NRBC x10^3 (test code = 8691789802) <0.01 See_Comment [Automated messa ge] The system which generated this result transmitted reference range: 10*3/?L. The reference range was not used to interpret this result as normal/abnormal. GRAN MAT (NEUT) % (test code = 770-8) 54.7 % IMM GRAN % (test code = 1539713509) 0.40 % LYMPH % (test code = 736-9) 33.8 % MONO % (test code = 5905-5) 7.1 % EOS % (test code = 713-8) 3.3 % BASO % (test code = 706-2) 0.7 % GRAN MAT x10^3(ANC) (test code = 7239369782) 4.87 10*3/uL 1.88-7.09 IMM GRAN x10^3 (test code = 0212380659) 0.04 10*3/uL 0.00-0.06 LYMPH x10^3 (test code = 731-0) 3.01 10*3/uL 1.32-3.29 MONO x10^3 (test code = 742-7) 0.63 10*3/uL 0.33-0.92 EOS x10^3 (test code = 711-2) 0.29 10*3/uL 0.03-0.39 BASO x10^3 (test code = 704-7) 0.06 10*3/uL 0.01-0.07 Lab Interpretation (test code = 01918-5) [facility]normal [facility] [id number] 06:45:45* Test Item Value Reference Range Interpretation Comments TROPONIN I (test code = 5033360421) 0.000 ng/mL See_Comment [Automated message] The system [...] of biotin. Lab Interpretation (test code = 98371-1) Normal [facility] HospitalTHYROID STIMULATING [id number] 05:00:55 * Test Item Value Reference Range Interpretation Comme nts TSH (test code = 5283271082) See_Comment [Automated [employer]] The system which generated this result transmitted reference range: 0.45 - 4.70 mIU/L. The reference range was not used to interpret this result as normal/abnormal. Lab Interpretation (test code = 76593-2) Normal [facility] [id number] 04:47:50* Test Item Value Reference Range Interpretation Comme nts FREE T4 (test code = 3980975761) See_Comment [Automated [employer]] The system which generated this result transmitted reference range: 0.78 - 2.20 ng/dL:. The reference range was not used to interpret this result as normal/abnormal. Lab Interpretation (test code = 43497-5) Normal [facility] [id number] 04:47:10* Test Item Value Reference Range Interpretation Comme nts FREE T3 (test code = 2645155061) 4.37 pg/mL 2.77-5.27 Lab Interpretation (test cod e = 89458-7) [facility] [id number] 04:42:07* Test Item Value Reference Range Interpretation Comments TROPONIN I (test code = 9451152771) 0.001 ng/mL See_Comment [Automated message] The system [...] of biotin. Lab Interpretation (test code = 47792-1) Normal [facility]. METABOLIC PANEL (96954)2021-12-14 04:30:28* Test Item Value Reference Range Interpretation Comme nts NA (test code = 4495763047) 141 mmol/L 135-145 K (test code = 5266012496) 3.6 mmol/L 3.5-5.0 CL (test code = 1021090724) 111 mmol/L 98-108 H CO2 TOTAL (test code = 5059957776) 19 mmol/L 23-31 L AGAP (test code = 6239515704) 2-16 BUN (test code = 0108405737) 15 mg/dL 7-23 GLUCOSE (test code = 3760296658) 113 mg/dL 70-110 H CREATININE (test code = 3207049235) 1.05 mg/dL 0.50-1.04 H TOTAL BILI (test code = 1051396117) 0.2 mg/dL 0.1-1.1 CALCIUM (test code = 4001828179) 9.8 mg/dL 8.6-10.6 T PROTEIN (test code = 3385467362) 6.8 g/dL 6.3-8.2 ALBUMIN (test code = 9503928033) 4.2 g/dL 3.5-5.0 ALK PHOS (test code = 7704734273) 73 U/L 34-122 ALTv (test code = 1742-6) 16 U/L 5-35 AST(SGOT) (test code = 9204874830) 19 U/L 13-40 eGFR (test code = 9937403028) mL/min/1.73m2 DARWIN (test code = DARWIN) Association [...] imaging tests). Lab Interpretation (test code = 84569-0) [facility] 04:29:48* Test Item Value Reference Range Interpretation Comme [facility] LIPASE (test code = 5836192248) 225 U/L 0-220 H Lab Interpretation (test cod e = 90549-0) [facility] [id number] 04:20:00* Test Item Value Reference Range Interpretation Comme [facility] POCT PREG (test code = 1605) negative On board controls acceptable with C Line (test code = 3574) present POCT PREG LOT # (test code = 3575) [id number] POCT PREG TEST DATE ( test code = 3576) 2023-05-07 Lab Interpretation (test cod e = 06404-4) Normal [facility] WITH [id number] 04:01:25* Test Item Value Reference Range Interpretation [...] 34.3 g/dL 31.6-35.1 RDW-SD (test code = 93749-8) 39.5 fL 39.0-49.9 RDW-CV (test code = 788-0) 13.6 % 12.0-15.5 PLT (test code = 777-3) See_Comment [Automated messa ge] The system which generated this result transmitted reference range: 166 - 358 10*3/?L. The reference range was not used to interpret this result as normal/abnormal. MPV (test code = 04299-7) 9.9 fL 9.5-12.9 NRBC/100 WBC (test code = 4296078295) See_Comment [Automated [employer] ssage] The system which generated this result transmitted reference range: 0.0 - 10.0 /100 WBCs. The reference range was not used to interpret this result as normal/abnormal. NRBC x10^3 (test code = 6281603664) <0.01 See_Comment [Automated messa ge] The system which generated this result transmitted reference range: 10*3/?L. The reference range was not used to interpret this result as normal/abnormal. GRAN MAT (NEUT) % (test code = 770-8) 51.5 % IMM GRAN % (test code = [id number]) 0.50 % LYMPH % (test code = 736-9) 35.8 % MONO % (test code = 5905-5) 9.4 % EOS % (test code = 713-8) 2.2 % BASO % (test code = 706-2) 0.6 % GRAN MAT x10^3(ANC) (test code = [id number]) 5.37 10*3/uL 1.88-7.09 IMM GRAN x10^3 (test code = [id number]) 0.05 10*3/uL 0.00-0.06 LYMPH x10^3 (test code = 731-0) 3.73 10*3/uL 1.32-3.29 H MONO x10^3 (test code = 742-7) 0.98 10*3/uL 0.33-0.92 H EOS x10^3 (test code = 711-2) 0.23 10*3/uL 0.03-0.39 BASO x10^3 (test code = 704-7) 0.06 10*3/uL 0.01-0.07 Lab Interpretation (test code = 01140-6) Abnormal [facility] [id number] 04:04:13* Test Item Value Reference Range Interpretation Comments TROPONIN I (test code = [id number]) 0.001 ng/mL See_Comment [Automated message] The system [...] of biotin. Lab Interpretation (test code = 08016-7) [facility] [id number] 02:56:00* Test Item Value Reference Range Interpretation Comme nts POCT PREG (test code = 1605) negative On board controls acceptable with C Line (test code = 3574) present POCT PREG LOT # (test code = 3575) [id number] POCT PREG TEST DATE ( test code = 3576) 2023-04-06 Lab Interpretation (test cod e = 82787-5) [facility] [id number] 02:15:30* Test Item Value Reference Range Interpretation Comments TROPONIN I (test code = 2306685296) 0.000 ng/mL See_Comment [Automated message] The system [...] of biotin. Lab Interpretation (test code = 83188-3) Normal [facility] [id number] 02:12:14* Test Item Value Reference Range Interpretation Comme nts NT-proBNP (test code = 5193996474) 109 pg/mL See_Comment [Automated message] The system which generated this result transmitted reference range: <=125. The reference range was not used to interpret this result as normal/abnormal. DARWIN (test code = DARWIN) Biotin has been reported to cause a negative bias, interpret results relative to patient's use of biotin. Lab Interpretation (test code = 39112-1) Normal [facility] MET[facility]OLIC PANEL (81830)2021-11-12 02:04:12* Test Item Value Reference Range Interpretation Comme nts NA (test code = 1857753920) 140 mmol/L 135-145 K (test code = 8927964072) 4.0 mmol/L 3.5-5.0 CL (test code = 5094965918) 111 mmol/L 98-108 H CO2 TOTAL (test code = 0209758189) 17 mmol/L 23-31 L AGAP (test code = 7054538688) 2-16 BUN (test code = 2426394790) 9 mg/dL 7-23 GLUCOSE (test code = 3783951842) 105 mg/dL 70-110 CREATININE (test code = 1224152792) 0.72 mg/dL 0.50-1.04 TOTAL BILI (test code = 4567779504) 0.4 mg/dL 0.1-1.1 CALCIUM (test code = 6619065120) 9.3 mg/dL 8.6-10.6 T PROTEIN (test code = 5190422361) 6.6 g/dL 6.3-8.2 ALBUMIN (test code = 0056768113) 4.0 g/dL 3.5-5.0 ALK PHOS (test code = 6142890118) 70 U/L 34-122 ALTv (test code = 1742-6) 19 U/L 5-35 AST(SGOT) (test code = 5235264637) 21 U/L 13-40 eGFR (test code = 3741722349) mL/min/1.73m2 DARWIN (test code = DARWIN) Association [...] imaging tests). Lab Interpretation (test code = 60704-3) [facility]normal [facility] 02:03:32* Test Item Value Reference Range Interpretation Comme nts LIPASE (test code = 6421361805) 173 U/L 0-220 Lab Interpretation (test cod e = 86407-2) Normal [facility] WITH [id number] 01:43:53* Test Item Value Reference Range Interpretation Comme nts WBC (test code = 6690-2) See_Comment [Automated [employer]] The system which generated this result transmitted reference range: 4.30 - 11.10 10*3/?L. The reference range was not used to interpret this result as normal/abnormal. RBC (test code = 789-8) See_Comment [Automated [employer]] The system which generated this result transmitted [...] 33.7 g/dL 31.6-35.1 RDW-SD (test code = 78489-8) 41.3 fL 39.0-49.9 RDW-CV (test code = 788-0) 14.3 % 12.0-15.5 PLT (test code = 777-3) See_Comment [Automated [employer] ge] The system which generated this result transmitted reference range: 166 - 358 10*3/?L. The reference range was not used to interpret this result as normal/abnormal. MPV (test code = 46816-6) 9.7 fL 9.5-12.9 NRBC/100 WBC (test code = 3572548473) See_Comment [Automated [employer] ssage] The system which generated this result transmitted reference range: 0.0 - 10.0 /100 WBCs. The reference range was not used to interpret this result as normal/abnormal. NRBC x10^3 (test code = 2591681783) <0.01 See_Comment [Automated [employer] ge] The system which generated this result transmitted reference range: 10*3/?L. The reference range was not used to interpret this result as normal/abnormal. GRAN MAT (NEUT) % (test code = 770-8) 62.6 % IMM GRAN % (test code = 3250282433) 0.50 % LYMPH % (test code = 736-9) 27.0 % MONO % (test code = 5905-5) 6.5 % EOS % (test code = 713-8) 2.9 % BASO % (test code = 706-2) 0.5 % GRAN MAT x10^3(ANC) (test code = 6646548354) 6.30 10*3/uL 1.88-7.09 IMM GRAN x10^3 (test code = 8312341811) 0.05 10*3/uL 0.00-0.06 LYMPH x10^3 (test code = 731-0) 2.71 10*3/uL 1.32-3.29 MONO x10^3 (test code = 742-7) 0.65 10*3/uL 0.33-0.92 EOS x10^3 (test code = 711-2) 0.29 10*3/uL 0.03-0.39 BASO x10^3 (test code = 704-7) 0.05 10*3/uL 0.01-0.07 Lab Interpretation (test code = 91907-2) [facility]normal [facility]PO[facility] [id number] 02:21:00* Test Item Value Reference Range Interpretation Comme nts POCT PREG (test code = 1605) Negative On board controls acceptable with C Line (test code = 3574) Present Lab Interpretation (test cod e = 14996-8) Normal [facility] HospitalComplete Metabolic [id number] 02:05:50* Test Item Value Reference Range Interpretation Comme nts NA (test code = 2892315383) 137 mmol/L 135-145 K (test code = 2484364336) 3.9 mmol/L 3.5-5.0 CL (test code = 7771635460) 109 mmol/L 98-108 H CO2 TOTAL (test code = 9145310079) 19 mmol/L 23-31 L AGAP (test code = 5962086816) 2-16 BUN (test code = 2469449206) 10 mg/dL 7-23 GLUCOSE (test code = 7482550346) 101 mg/dL 70-110 CREATININE (test code = 4639880723) 0.80 mg/dL 0.50-1.04 TOTAL BILI (test code = 1187170209) 0.3 mg/dL 0.1-1.1 CALCIUM (test code = 5028469951) 8.8 mg/dL 8.6-10.6 T PROTEIN (test code = 6259707252) 6.6 g/dL 6.3-8.2 ALBUMIN (test code = 6352097140) 4.0 g/dL 3.5-5.0 ALK PHOS (test code = 2976560243) 71 U/L 34-122 ALTv (test code = 1742-6) 18 U/L 5-35 AST(SGOT) (test code = 0195878222) 20 U/L 13-40 eGFR (test code = 4580689836) mL/min/1.73m2 DARWIN (test code = DARWIN) Association [...] imaging tests). Lab Interpretation (test code = 28741-9) Abnormal [facility] HospitalLipase, Bpcqe1948-12-25 02:05:25* Test Item Value Reference Range Interpretation Comme nts LIPASE (test code = 1199281154) 96 U/L 0-220 Lab Interpretation (test cod e = 67441-5) Normal [facility] HospitalCB with Hfyzxxiiewrv7888-61-16 01:53:06* Test Item Value Reference Range Interpretation Comme nts WBC (test code = 6690-2) See_Comment H [Automated [employer]] The system which generated this result transmitted reference range: 4.30 - 11.10 10*3/?L. The reference range was not used to interpret this result as normal/abnormal. RBC (test code = 789-8) See_Comment H [Automated [employer]] The system which generated this result transmitted [...] 34.3 g/dL 31.6-35.1 RDW-SD (test code = 26198-1) 40.5 fL 39.0-49.9 RDW-CV (test code = 788-0) 14.4 % 12.0-15.5 PLT (test code = 777-3) See_Comment [Automated messa ge] The system which generated this result transmitted reference range: 166 - 358 10*3/?L. The reference range was not used to interpret this result as normal/abnormal. MPV (test code = 35737-6) 9.4 fL 9.5-12.9 L NRBC/100 WBC (test code = 8261076571) See_Comment [Automated [employer] ssage] The system which generated this result transmitted reference range: 0.0 - 10.0 /100 WBCs. The reference range was not used to interpret this result as normal/abnormal. NRBC x10^3 (test code = 6224437861) <0.01 See_Comment [Automated [employer] ge] The system which generated this result transmitted reference range: 10*3/?L. The reference range was not used to interpret this result as normal/abnormal. GRAN MAT (NEUT) % (test code = 770-8) 59.8 % IMM GRAN % (test code = 5897742637) 0.40 % LYMPH % (test code = 736-9) 31.0 % MONO % (test code = 5905-5) 6.3 % EOS % (test code = 713-8) 2.0 % BASO % (test code = 706-2) 0.5 % GRAN MAT x10^3(ANC) (test code = 1327408859) 6.73 10*3/uL 1.88-7.09 IMM GRAN x10^3 (test code = 9349414004) 0.05 10*3/uL 0.00-0.06 LYMPH x10^3 (test code = 731-0) 3.50 10*3/uL 1.32-3.29 H MONO x10^3 (test code = 742-7) 0.71 10*3/uL 0.33-0.92 EOS x10^3 (test code = 711-2) 0.23 10*3/uL 0.03-0.39 BASO x10^3 (test code = 704-7) 0.06 10*3/uL 0.01-0.07 Lab Interpretation (test code = 10336-9) Abnormal [facility] Mstu0412-24-95 01:45:00* Test Item Value Reference Range Interpretation Comme nts POCT PREG (test code = 1605) negatibe On board controls acceptable with C Line (test code = 3574) present POCT PREG LOT # (test code = 3575) [id number] POCT PREG TEST DATE ( test code = 3576) 09/04/2022 Lab Interpretation (test cod e = 12154-5) Normal [facility] LWXV5644-08-11 06:35:00* Test Item Value Reference Range Interpretation Comme nts POCT PREG (test code = 1605) negative On board controls acceptable with C Line (test code = 3574) present POCT PREG LOT # (test code = 3575) [id number] POCT PREG TEST DATE ( test code = 3576) Lab Interpretation (test cod e = 16953-2) [id number] 09:09:55* Test Item Value Reference Range Interpretation Comments TROPONIN I (test code = 4281978337) 0.001 ng/mL See_Comment [Automated message] The system [...] of biotin. Lab Interpretation (test code = 59803-7) Normal [facility] HospitalD-PZQUA5878-07-84 07:23:51* Test Item Value Reference Range Interpretation Comments D-DIMER (test code = 6121304423) See_Comment [Automated message] The system which generated [...] a diagnosis. Lab Interpretation (test code = 71137-9) Normal [facility] HospitalLIPASE2021-11-21 06:11:26* Test Item Value Reference Range Interpretation Comme nts LIPASE (test code = 5691113789) 155 U/L 0-220 Lab Interpretation (test cod e = 34414-1) Normal [facility] HospitalTROPONIN J6197-09-78 06:06:05* Test Item Value Reference Range Interpretation Comments TROPONIN I (test code = 2191577705) 0.002 ng/mL See_Comment [Automated message] The system [...] of biotin. Lab Interpretation (test code = 36682-0) Normal [facility]AL CFP-OFX7937-03-21 06:03:04* Test Item Value Reference Range Interpretation Comme nts NT-proBNP (test code = 1687242894) 19 pg/mL See_Comment [Automated message] The system which generated this result transmitted reference range: <=125. The reference range was not used to interpret this result as normal/abnormal. DARWIN (test code = DARWIN) Biotin has been reported to cause a negative bias, interpret results relative to patient's use of biotin. Lab Interpretation (test code = 02634-0) Normal [facility] HospitalCOMP. METABOLIC PANEL (64909)2021-05-28 05:54:25* Test Item Value Reference Range Interpretation Comme nts NA (test code = 1442062466) 136 mmol/L 135-145 K (test code = 3412608701) 3.2 mmol/L 3.5-5.0 L CL (test code = 4547959949) 109 mmol/L 98-108 H CO2 TOTAL (test code = 0163759214) 16 mmol/L 23-31 L AGAP (test code = 1547551966) 2-16 BUN (test code = 7819907892) 11 mg/dL 7-23 GLUCOSE (test code = 7422962229) 144 mg/dL 70-110 H CREATININE (test code = 3279456720) 0.84 mg/dL 0.50-1.04 TOTAL BILI (test code = 4118644043) 0.2 mg/dL 0.1-1.1 CALCIUM (test code = 0527585066) 9.4 mg/dL 8.6-10.6 T PROTEIN (test code = 5346439474) 6.9 g/dL 6.3-8.2 ALBUMIN (test code = 5252157217) 3.9 g/dL 3.5-5.0 ALK PHOS (test code = 9963040465) 106 U/L 34-122 ALTv (test code = 1742-6) 20 U/L 5-35 AST(SGOT) (test code = 8678564793) 17 U/L 13-40 eGFR (test code = 9094624232) mL/min/1.73m2 DARWIN (test code = DARWIN) Association [...] imaging tests). Lab Interpretation (test code = 70654-7) Abnormal [facility] WITH [id number] 05:40:06* Test Item Value Reference Range Interpretation Comme nts WBC (test code = 6690-2) See_Comment [Automated [employer]] The system which generated this result transmitted reference range: 4.30 - 11.10 10*3/?L. The reference range was not used to interpret this result as normal/abnormal. RBC (test code = 789-8) See_Comment [Automated [employer]] The system which generated this result transmitted [...] 33.3 g/dL 31.6-35.1 RDW-SD (test code = 01028-1) 39.7 fL 39.0-49.9 RDW-CV (test code = 788-0) 13.6 % 12.0-15.5 PLT (test code = 777-3) See_Comment [Automated messa ge] The system which generated this result transmitted reference range: 166 - 358 10*3/?L. The reference range was not used to interpret this result as normal/abnormal. MPV (test code = 18123-9) 9.5 fL 9.5-12.9 NRBC/100 WBC (test code = 5249635589) See_Comment [Automated [employer]age] The system which generated this result transmitted reference range: 0.0 - 10.0 /100 WBCs. The reference range was not used to interpret this result as normal/abnormal. NRBC x10^3 (test code = 7154631404) <0.01 See_Comment [Automated [employer]] The system which generated this result transmitted reference range: 10*3/?L. The reference range was not used to interpret this result as normal/abnormal. GRAN MAT (NEUT) % (test code = 770-8) 53.7 % IMM GRAN % (test code = 7465706191) 0.50 % LYMPH % (test code = 736-9) 36.0 % MONO % (test code = 5905-5) 6.3 % EOS % (test code = 713-8) 2.8 % BASO % (test code = 706-2) 0.7 % GRAN MAT x10^3(ANC) (test code = 1883173015) 5.38 10*3/uL 1.88-7.09 IMM GRAN x10^3 (test code = 4290247925) 0.05 10*3/uL 0.00-0.06 LYMPH x10^3 (test code = 731-0) 3.60 10*3/uL 1.32-3.29 H MONO x10^3 (test code = 742-7) 0.63 10*3/uL 0.33-0.92 EOS x10^3 (test code = 711-2) 0.28 10*3/uL 0.03-0.39 BASO x10^3 (test code = 704-7) 0.07 10*3/uL 0.01-0.07 Lab Interpretation (test code = 28155-7) [facility]PO[facility] [id number] 05:32:00* Test Item Value Reference Range Interpretation Comme nts POCT PREG (test code = 1605) negative On board controls acceptable with C Line (test code = 3574) present POCT PREG LOT # (test code = 3575) [id number] POCT PREG TEST DATE ( test code = 3576) 08/07/2022 Lab Interpretation (test cod e = 11110-0) Normal [facility]Tr[facility]ernin R4663-44-94 11:13:57* Test Item Value Reference Range Interpretation Comments TROPONIN I (test code = 6948906253) 0.002 ng/mL See_Comment [Automated message] The system [...] of biotin. Lab Interpretation (test code = 80821-0) Normal [facility]Ba[facility] (NA, K, CL, CO2, GLUCOSE, BUN, CREATININE, CA)2021-04-08 11:04:34* Test Item Value Reference Range Interpretation Comme nts NA (test code = 7957208569) 140 mmol/L 135-145 K (test code = 7784695323) 3.6 mmol/L 3.5-5.0 CL (test code = 1231653367) 111 mmol/L 98-108 H CO2 TOTAL (test code = 8404921810) 22 mmol/L 23-31 L AGAP (test code = 9946459401) 2-16 BUN (test code = 3902852586) 10 mg/dL 7-23 GLUCOSE (test code = 2974532078) 104 mg/dL 70-110 CREATININE (test code = 4625365911) 0.70 mg/dL 0.50-1.04 CALCIUM (test code = 3260082761) 8.7 mg/dL 8.6-10.6 eGFR (test code = 1178654831) mL/min/1.73m2 DARWIN (test code = DARWIN) Association [...] imaging tests). Lab Interpretation (test code = 99852-0) Abnormal [facility] with Euyajsniomrd4622-16-34 10:46:50* Test Item Value Reference Range Interpretation Comme nts WBC (test code = 6690-2) See_Comment [Automated [employer]] The system which generated this result transmitted reference range: 4.30 - 11.10 10*3/?L. The reference range was not used to interpret this result as normal/abnormal. RBC (test code = 789-8) See_Comment [Automated [employer]] The system which generated this result [...] 33.5 g/dL 31.6-35.1 RDW-SD (test code = 82393-0) 42.0 fL 39.0-49.9 RDW-CV (test code = 788-0) 14.1 % 12.0-15.5 PLT (test code = 777-3) See_Comment [Automated [employer]] The system which generated this result transmitted reference range: 166 - 358 10*3/?L. The reference range was not used to interpret this result as normal/abnormal. MPV (test code = 16020-3) 10.0 fL 9.5-12.9 NRBC/100 WBC (test code = 7445442340) See_Comment [Automated [employer]] The system which generated this result transmitted reference range: 0.0 - 10.0 /100 WBCs. The reference range was not used to interpret this result as normal/abnormal. NRBC x10^3 (test code = 9927248802) <0.01 See_Comment [Automated me ssage] The system which generated this result transmitted reference range: 10*3/?L. The reference range was not used to interpret this result as normal/abnormal. GRAN MAT (NEUT) % (test code = 770-8) 59.1 % IMM GRAN % (test code = 5578522094) 0.70 % LYMPH % (test code = 736-9) 28.2 % MONO % (test code = 5905-5) 8.5 % EOS % (test code = 713-8) 3.0 % BASO % (test code = 706-2) 0.5 % GRAN MAT x10^3(ANC) (test code = 4450417410) 3.61 10*3/uL 1.88-7.09 IMM GRAN x10^3 (test code = 4076603134) 0.04 10*3/uL 0.00-0.06 LYMPH x10^3 (test code = 731-0) 1.72 10*3/uL 1.32-3.29 MONO x10^3 (test code = 742-7) 0.52 10*3/uL 0.33-0.92 EOS x10^3 (test code = 711-2) 0.18 10*3/uL 0.03-0.39 BASO x10^3 (test code = 704-7) 0.03 10*3/uL 0.01-0.07 [facility] [id number] 05:54:48* Test Item Value Reference Range Interpretation Comments TROPONIN I (test code = 6147407741) 0.002 ng/mL See_Comment [Automated message] The system [...] of biotin. Lab Interpretation (test code = 52247-0) Normal [facility] HospitalThyroid Stimulating Hormone (TSH)2021-04-08 00:51:16* Test Item Value Reference Range Interpretation Comme nts TSH (test code = 2300038934) See_Comment [Automated [employer]] The system which generated this result transmitted reference range: 0.45 - 4.70 mIU/L. The reference range was not used to interpret this result as normal/abnormal. Lab Interpretation (test code = 46127-8) Normal [facility] HospitalGlycosylated Hemoglobin (A1C)2021-04-08 00:26:53* Test Item Value Reference Range Interpretation Comme nts HGB A1C (test code = 4548-4) 5.5 % 4.0-5.7 DARWIN (test code = DARWIN) Reference RangesNormal: <5.7%Prediabetes: 5.7 - 6.4%Diabetes: > 6.5% Lab Interpretation (test code = 88462-6) Normal [facility] HospitalLipid Panel (Total Cholesterol, Triglycerides, HDL)2021-04-08 00:20:12* Test Item Value Reference Range Interpretation Comme nts CHOL (test code = 7140219393) 223 mg/dL 120-200 H HDL (test code = 6179395001) 35 mg/dL >50 L HDLC RATIO (test code = 3278025281) See_Comment H [Automated [employer]] The system which generated this result transmitted reference range: <=4.5. The reference range was not used to interpret this result as normal/abnormal. TRIG (test code = 3277730525) 223 mg/dL 30-170 H LDL CHOL (test code = 01928-2) 143 mg/dL See_Comment [Automated [employer]] The system which generated this result transmitted reference range: <=160. The reference range was not used to interpret this result as normal/abnormal. VLDL (test code = 2276670861) 45 mg/dL 5-60 Lab Interpretation (test code = 29420-1) Abnormal [facility] HospitalMagnesium Henjj9498-95-89 00:20:07* Test Item Value Reference Range Interpretation Comme nts MAGNESIUM (test code = 2057025885) 1.7 mg/dL 1.7-2.4 Lab Interpretation (test cod e = 68505-5) Normal [facility] METABOLIC PANEL (16793)2021-04-07 23:04:13* Test Item Value Reference Range Interpretation Comme nts NA (test code = 5258226727) 139 mmol/L 135-145 K (test code = 2862898628) 3.4 mmol/L 3.5-5.0 L CL (test code = 3950202568) 109 mmol/L 98-108 H CO2 TOTAL (test code = 4443725857) 22 mmol/L 23-31 L AGAP (test code = 1021832226) 2-16 BUN (test code = 5688960387) 10 mg/dL 7-23 GLUCOSE (test code = 9469329258) 97 mg/dL 70-110 CREATININE (test code = 8459838286) 0.84 mg/dL 0.50-1.04 TOTAL BILI (test code = 0955381934) 0.3 mg/dL 0.1-1.1 CALCIUM (test code = 3453011921) 9.2 mg/dL 8.6-10.6 T PROTEIN (test code = 2161992161) 6.6 g/dL 6.3-8.2 ALBUMIN (test code = 4957254649) 3.8 g/dL 3.5-5.0 ALK PHOS (test code = 7139297826) 69 U/L 34-122 ALTv (test code = 1742-6) 18 U/L 5-35 AST(SGOT) (test code = 7623601934) 19 U/L 13-40 eGFR (test code = 5450626971) mL/min/1.73m2 DARWIN (test code = DARWIN) Association [...] imaging tests). Lab Interpretation (test code = 99714-9) Abnormal [facility] HospitalTROPONIN [id number] 22:33:04* Test Item Value Reference Range Interpretation Comments TROPONIN I (test code = 7767824864) 0.001 ng/mL See_Comment [Automated message] The system [...] of biotin. Lab Interpretation (test code = 12431-9) Normal [facility] HospitalN-[facility]MINAL RWL-PZZ4689-92-01 22:30:05* Test Item Value Reference Range Interpretation Comme nts NT-proBNP (test code = 0923343243) 352 pg/mL See_Comment H [Automated message] The system which generated this result transmitted reference range: <=125. The reference range was not used to interpret this result as normal/abnormal. DARWIN (test code = DARWIN) Biotin has been reported to cause a negative bias, interpret results relative to patient's use of biotin. Lab Interpretation (test code = 51137-5) Abnormal [facility] HospitalACTIVATED PARTIAL THRMPLAS [id number] 22:28:48* Test Item Value Reference Range Interpretation Comme nts APTT Patient (test code = 3173-2) See_Comment [Automated message] The system which generated this result transmitted reference range: 23 - 38 Seconds. The reference range was not used to interpret this result as normal/abnormal. DARWIN (test code = DARWIN) The [facility] patient population mean normal value for aPTT is 30 seconds. Lab Interpretation (test code = 18902-1) Normal [facility] HospitalPROTHROMBIN TIME / [id number] 22:26:44* Test Item Value Reference Range Interpretation [...] the indications. Lab Interpretation (test code = 61492-3) Normal [facility] HospitalLIPASE2021-10-01 22:20:05* Test Item Value Reference Range Interpretation Comme nts LIPASE (test code = 5995824674) 66 U/L 0-220 Lab Interpretation (test cod e = 69121-1) Normal [facility] HospitalCBC WITH [id number] 22:07:01* Test Item Value Reference Range Interpretation [...] 33.2 g/dL 31.6-35.1 RDW-SD (test code = 70730-4) 41.6 fL 39.0-49.9 RDW-CV (test code = 788-0) 14.1 % 12.0-15.5 PLT (test code = 777-3) See_Comment [Automated messa ge] The system which generated this result transmitted reference range: 166 - 358 10*3/?L. The reference range was not used to interpret this result as normal/abnormal. MPV (test code = 96968-1) 9.2 fL 9.5-12.9 L NRBC/100 WBC (test code = 7399274372) See_Comment [Automated [employer]age] The system which generated this result transmitted reference range: 0.0 - 10.0 /100 WBCs. The reference range was not used to interpret this result as normal/abnormal. NRBC x10^3 (test code = 2690625794) <0.01 See_Comment [Automated messa ge] The system which generated this result transmitted reference range: 10*3/?L. The reference range was not used to interpret this result as normal/abnormal. GRAN MAT (NEUT) % (test code = 770-8) 61.6 % IMM GRAN % (test code = 4333792769) 0.60 % LYMPH % (test code = 736-9) 28.7 % MONO % (test code = 5905-5) 4.9 % EOS % (test code = 713-8) 3.7 % BASO % (test code = 706-2) 0.5 % GRAN MAT x10^3(ANC) (test code = 3143871820) 6.24 10*3/uL 1.88-7.09 IMM GRAN x10^3 (test code = 8675306826) 0.06 10*3/uL 0.00-0.06 LYMPH x10^3 (test code = 731-0) 2.90 10*3/uL 1.32-3.29 MONO x10^3 (test code = 742-7) 0.50 10*3/uL 0.33-0.92 EOS x10^3 (test code = 711-2) 0.37 10*3/uL 0.03-0.39 BASO x10^3 (test code = 704-7) 0.05 10*3/uL 0.01-0.07 Lab Interpretation (test code = 81907-3) [facility]normal [facility] HospitalURINALYSIS2021-07-08 08:49:55* Test Item Value Reference Range Interpretation Comme nts APPEARANCE (test code = 6321724636) Cloudy Clear A COLOR (test code = 0670619318) Yellow Yellow PH (test code = 7322645836) 4.8-8.0 SP GRAVITY (test code = 4133595958) 1.003-1.030 GLU U QUAL (test code = 4876462643) Normal Normal BLOOD (test code = 2536869637) Negative Negative KETONES (test code = 0205776054) Negative Negative PROTEIN (test code = 2887-8) Negative Negative UROBILIN (test code = 5509531971) Normal Normal BILIRUBIN (test code = 6653354123) 2 mg/dL Negative A NITRITE (test code = 7721506978) Negative Negative LEUK MARC (test code = 3729342743) 75/uL Negative A RBC/HPF (test code = 3249275851) See_Comment H [Automated [employer]] The system which generated this result transmitted reference range: 0 - 3 HPF. The reference range was not used to interpret this result as normal/abnormal. WBC/HPF (test code = 9521897511) See_Comment H [Automated [employer]] The system which generated this result transmitted reference range: 0 - 5 HPF. The reference range was not used to interpret this result as normal/abnormal. BACTERIA (test code = 5969009397) Moderate Negative A MUCOUS (test code = 7881949706) Slight Negative LPF A SQ EPITH (test code = 4666631482) HPF YEAST BUD (test code = 7228370369) See_Comment H [Automated messa ge] The system which generated this result transmitted reference range: <=1 HPF. The reference range was not used to interpret this result as normal/abnormal. Ictotest (test code = 2721526683) Negative Lab Interpretation (test code = 03056-6) Abnormal [facility]. METABOLIC PANEL (75014)2021-01-12 08:49:44* Test Item Value Reference Range Interpretation Comme nts NA (test code = 8054953668) 137 mmol/L 135-145 K (test code = 9072568959) 4.6 mmol/L 3.5-5.0 CL (test code = 0115469531) 108 mmol/L 98-108 CO2 TOTAL (test code = 6915031442) 21 mmol/L 23-31 L AGAP (test code = 3810667062) 2-16 BUN (test code = 5116026154) 19 mg/dL 7-23 GLUCOSE (test code = 4270147312) 107 mg/dL 70-110 CREATININE (test code = 1623123224) 0.63 mg/dL 0.50-1.04 TOTAL BILI (test code = 0733023506) 0.4 mg/dL 0.1-1.1 CALCIUM (test code = 6086748138) 9.2 mg/dL 8.6-10.6 T PROTEIN (test code = 2868664075) 7.4 g/dL 6.3-8.2 ALBUMIN (test code = 1353982884) 4.2 g/dL 3.5-5.0 ALK PHOS (test code = 9335620893) 179 U/L 34-122 H ALTv (test code = 1742-6) 113 U/L 5-35 H AST(SGOT) (test code = 0277818894) 38 U/L 13-40 eGFR (test code = 4312332805) mL/min/1.73m2 DARWIN (test code = DARWIN) Association [...] imaging tests). Lab Interpretation (test code = 79832-1) Abnormal [facility] WITH [id number] 08:11:02* Test Item Value Reference Range Interpretation Comme nts WBC (test code = 6690-2) See_Comment H [Automated [employer]] The system which generated this result transmitted reference range: 4.30 - 11.10 10*3/?L. The reference range was not used to interpret this result as normal/abnormal. RBC (test code = 789-8) See_Comment [Automated [employer]] The system which generated this result transmitted [...] 33.3 g/dL 31.6-35.1 RDW-SD (test code = 31339-0) 41.6 fL 39.0-49.9 RDW-CV (test code = 788-0) 14.0 % 12.0-15.5 PLT (test code = 777-3) See_Comment [Automated messa ge] The system which generated this result transmitted reference range: 166 - 358 10*3/?L. The reference range was not used to interpret this result as normal/abnormal. MPV (test code = 46805-0) 9.5 fL 9.5-12.9 NRBC/100 WBC (test code = 4346102763) See_Comment [Automated [employer] ssage] The system which generated this result transmitted reference range: 0.0 - 10.0 /100 WBCs. The reference range was not used to interpret this result as normal/abnormal. NRBC x10^3 (test code = 4103472597) <0.01 See_Comment [Automated messa ge] The system which generated this result transmitted reference range: 10*3/?L. The reference range was not used to interpret this result as normal/abnormal. GRAN MAT (NEUT) % (test code = 770-8) 68.0 % IMM GRAN % (test code = 1140074275) 0.80 % LYMPH % (test code = 736-9) 23.6 % MONO % (test code = 5905-5) 5.1 % EOS % (test code = 713-8) 2.1 % BASO % (test code = 706-2) 0.4 % GRAN MAT x10^3(ANC) (test code = 3103037777) 8.86 10*3/uL 1.88-7.09 H IMM GRAN x10^3 (test code = 1892748180) 0.11 10*3/uL 0.00-0.06 H LYMPH x10^3 (test code = 731-0) 3.07 10*3/uL 1.32-3.29 MONO x10^3 (test code = 742-7) 0.66 10*3/uL 0.33-0.92 EOS x10^3 (test code = 711-2) 0.27 10*3/uL 0.03-0.39 BASO x10^3 (test code = 704-7) 0.05 10*3/uL 0.01-0.07 Lab Interpretation (test code = 89076-0) [facility] [id number] 08:02:00* Test Item Value Reference Range Interpretation Comme nts POCT PREG (test code = 1605) negative On board controls acceptable with C Line (test code = 3574) positive POCT PREG LOT # (test code = 3575) [id number] POCT PREG TEST DATE ( test code = 3576) 07/07/2022 Lab Interpretation (test cod e = 60063-4) Normal [facility] [id number] 01:55:05* Test Item Value Reference Range Interpretation Comme nts TROPONIN I (test code = 4762893464) 0.000 ng/mL See_Comment [Automated message] The system [...] biotin. ? Lab Interpretation (test code = 58173-7) Normal [facility] Pmhu3210-21-30 23:41:46No radiographic evidence of an acute cardiopulmonary process. RL: 2109AFC: 28284 EXAM: XR CHEST 1 VW ORDERING PROVIDER: [...] evidence of an acute cardiopulmonary process.RL: 2109AFC: 42567 [facility] T[facility] [id number] 23:07:21* Test Item Value Reference Range Interpretation Comme nts TROPONIN I (test code = 9967255878) 0.000 ng/mL See_Comment [Automated message] The system [...] biotin. ? Lab Interpretation (test code = 89435-9) Normal [facility]MINAL AUX-RQM1035-96-05 23:04:20* Test Item Value Reference Range Interpretation Comme nts NT-proBNP (test code = 7144010955) 14 pg/mL See_Comment [Automated message] The system which generated this result transmitted reference range: <=125. The reference range was not used to interpret this result as normal/abnormal. DARWIN (test code = DARWIN) Biotin has been reported to cause a negative bias, interpret results relative to patient's use of biotin. Lab Interpretation (test code = 49473-0) Normal [facility] (ALB, T.PRO, BILI T, BU/BC, ALT, AST, ALK PHOS)2020-12-10 22:58:16* Test Item Value Reference Range Interpretation Comme nts TOTAL BILI (test code = 1403443129) 0.5 mg/dL 0.1-1.1 BILI UNCON (test code = 3891271527) 0.3 mg/dL 0.1-1.1 BILI CONJ (test code = 1163988269) 0.0 mg/dL 0.0-0.3 T PROTEIN (test code = 5307489493) 8.1 g/dL 6.3-8.2 ALBUMIN (test code = 9689543749) 4.7 g/dL 3.5-5.0 ALK PHOS (test code = 5281272189) 104 U/L 34-122 ALTv (test code = 1742-6) 18 U/L 5-35 AST(SGOT) (test code = 0038085423) 23 U/L 13-40 Lab Interpretation (test cod e = 42901-6) Normal [facility] Metabolic Panel (NA, K, CL, CO2, GLUCOSE, BUN, CREATININE, CA)2020-12-10 22:57:56* Test Item Value Reference Range Interpretation Comme nts NA (test code = 4175414317) 135 mmol/L 135-145 K (test code = 6023318278) 3.7 mmol/L 3.5-5.0 CL (test code = 7565743653) 105 mmol/L 98-108 CO2 TOTAL (test code = 3968320030) 18 mmol/L 23-31 L AGAP (test code = 4524339828) 2-16 BUN (test code = 1335232683) 14 mg/dL 7-23 GLUCOSE (test code = 3397852121) 108 mg/dL 70-110 CREATININE (test code = 4388292401) 0.56 mg/dL 0.50-1.04 CALCIUM (test code = 4474846398) 9.8 mg/dL 8.6-10.6 eGFR (test code = 0159062255) mL/min/1.73m2 DARWIN (test code = DARWIN) Association [...] imaging tests). Lab Interpretation (test code = 88841-3) Abnormal [facility] HospitalLipase Oxlyr2582-12-87 22:57:56* Test Item Value Reference Range Interpretation Comme nts LIPASE (test code = 1584294452) 122 U/L 0-220 Lab Interpretation (test cod e = 88151-4) Normal [facility] HospitalD-UFGEG5396-87-99 22:52:34* Test Item Value Reference Range Interpretation Comments D-DIMER (test code = 1509189339) See_Comment [Automated message] The system which generated [...] a diagnosis. Lab Interpretation (test code = 44575-7) Normal [facility] HospitalUrinalysis2021-06-05 22:52:29* Test Item Value Reference Range Interpretation Comme nts APPEARANCE (test code = 4477505452) Hazy Clear A COLOR (test code = 7838901686) Yellow Yellow PH (test code = 3969114761) 4.8-8.0 SP GRAVITY (test code = 5957004795) 1.003-1.030 GLU U QUAL (test code = 4452169267) Normal Normal BLOOD (test code = 0638509194) Negative Negative KETONES (test code = 2335729158) Negative Negative PROTEIN (test code = 2887-8) Negative Negative UROBILIN (test code = 9535346620) Normal Normal BILIRUBIN (test code = 8881300858) 2 mg/dL Negative A NITRITE (test code = 4935422890) Negative Negative LEUK MARC (test code = 0333091302) 25/uL Negative A RBC/HPF (test code = 5460201130) See_Comment [Automated messa ge] The system which generated this result transmitted reference range: 0 - 3 HPF. The reference range was not used to interpret this result as normal/abnormal. WBC/HPF (test code = 0390823232) See_Comment [Automated messa ge] The system which generated this result transmitted reference range: 0 - 5 HPF. The reference range was not used to interpret this result as normal/abnormal. BACTERIA (test code = 8953403151) Few Negative A MUCOUS (test code = 5374804996) Slight Negative LPF A SQ EPITH (test code = 0503107593) HPF Lab Interpretation (test code = 37963-8) Abnormal [facility] with Fhztshpvepvc5835-85-25 22:45:56* Test Item Value Reference Range Interpretation [...] 33.5 g/dL 31.6-35.1 RDW-SD (test code = 14679-1) 40.5 fL 39.0-49.9 RDW-CV (test code = 788-0) 13.3 % 12.0-15.5 PLT (test code = 777-3) See_Comment H [Automated message] The system which generated this result transmitted reference range: 166 - 358 10*3/?L. The reference range was not used to interpret this result as normal/abnormal. MPV (test code = 30731-9) 9.2 fL 9.5-12.9 L NRBC/100 WBC (test code = 1354589883) See_Comment [Automated message] The system which generated this result transmitted reference range: 0.0 - 10.0 /100 WBCs. The reference range was not used to interpret this result as normal/abnormal. NRBC x10^3 (test code = 5915920063) <0.01 See_Comment [Automated message] The system which generated this result transmitted reference range: 10*3/?L. The reference range was not used to interpret this result as normal/abnormal. GRAN MAT (NEUT) % (test code = 770-8) 73.4 % IMM GRAN % (test code = 8991707046) 0.50 % LYMPH % (test code = 736-9) 17.5 % MONO % (test code = 5905-5) 6.5 % EOS % (test code = 713-8) 1.6 % BASO % (test code = 706-2) 0.5 % GRAN MAT x10^3(ANC) (test code = 8585095507) 10.21 10*3/uL 1.88-7.09 H IMM GRAN x10^3 (test code = 2307851330) 0.07 10*3/uL 0.00-0.06 H LYMPH x10^3 (test code = 731-0) 2.44 10*3/uL 1.32-3.29 MONO x10^3 (test code = 742-7) 0.90 10*3/uL 0.33-0.92 EOS x10^3 (test code = 711-2) 0.22 10*3/uL 0.03-0.39 BASO x10^3 (test code = 704-7) 0.07 10*3/uL 0.01-0.07 Lab Interpretation (test code = 12249-3) Abnormal [facility] Dsgy7022-35-01 22:32:00* Test Item Value Reference Range Interpretation Comme nts POCT PREG (test code = 1605) negative On board controls acceptable with C Line (test code = 3574) present POCT PREG LOT # (test code = 3575) [id number] POCT PREG TEST DATE ( test code = 3576) 06/06/2022 Lab Interpretation (test cod e = 36342-0) Normal [facility] HospitalUrinalysis2021-05-30 21:34:43* Test Item Value Reference Range Interpretation Comme nts APPEARANCE (test code = 6789475994) Clear Clear COLOR (test code = 5530962985) Yellow Yellow PH (test code = 8033562871) 4.8-8.0 SP GRAVITY (test code = 0264310113) 1.003-1.030 GLU U QUAL (test code = 7097226753) Normal Normal BLOOD (test code = 4771303245) Negative Negative KETONES (test code = 4185036426) Negative Negative PROTEIN (test code = 2887-8) Negative Negative UROBILIN (test code = 7277352262) Normal Normal BILIRUBIN (test code = 9405550845) Negative Negative NITRITE (test code = 1132213660) Negative Negative LEUK MARC (test code = 8987616566) Negative Negative RBC/HPF (test code = 2086073359) See_Comment [Automated messa ge] The system which generated this result transmitted reference range: 0 - 3 HPF. The reference range was not used to interpret this result as normal/abnormal. WBC/HPF (test code = 2935865905) <1 See_Comment [Automated messa ge] The system which generated this result transmitted reference range: 0 - 5 HPF. The reference range was not used to interpret this result as normal/abnormal. BACTERIA (test code = 6071398703) Negative Negative MUCOUS (test code = 0106704889) Slight Negative LPF A SQ EPITH (test code = 5609398909) HPF Lab Interpretation (test code = 67339-5) Abnormal [facility] Nlop8946-68-37 21:18:00* Test Item Value Reference Range Interpretation Comme nts POCT PREG (test code = 1605) negative On board controls acceptable with C Line (test code = 3574) present POCT PREG LOT # (test code = 3575) [id number] POCT PREG TEST DATE ( test code = 3576) 06/06/2022 Lab Interpretation (test cod e = 92327-7) Normal [facility] AN[facility]LE 3+ VW NMRC0369-81-85 21:11:00No acute bony abnormality. Preliminary Report Dictated [...] reviewed this study and agree with the abovereport.[facility] HospitalTroponin L0278-51-97 20:59:44* Test Item Value Reference Range Interpretation Comme nts TROPONIN I (test code = 1246771334) 0.000 ng/mL See_Comment [Automated message] The system [...] biotin. ? Lab Interpretation (test code = 70702-4) Normal [facility] HospitalLipase Grbul1119-42-89 20:48:20* Test Item Value Reference Range Interpretation Comme nts LIPASE (test code = 4693115426) 96 U/L 0-220 Lab Interpretation (test cod e = 49739-3) Normal [facility] HospitalBasic Metabolic Panel (NA, K, CL, CO2, GLUCOSE, BUN, CREATININE, CA)2020-12-04 20:48:20* Test Item Value Reference Range Interpretation Comme nts NA (test code = 5164377505) 138 mmol/L 135-145 K (test code = 7827655438) 3.8 mmol/L 3.5-5.0 CL (test code = 5781898938) 108 mmol/L 98-108 CO2 TOTAL (test code = 7677162519) 21 mmol/L 23-31 L AGAP (test code = 5854901972) 2-16 BUN (test code = 4243846855) 13 mg/dL 7-23 GLUCOSE (test code = 7346752753) 107 mg/dL 70-110 CREATININE (test code = 9640104013) 0.66 mg/dL 0.50-1.04 CALCIUM (test code = 8626372578) 9.3 mg/dL 8.6-10.6 eGFR (test code = 1090175261) mL/min/1.73m2 DARWIN (test code = DARWIN) Association [...] imaging tests). Lab Interpretation (test code = 96007-3) Abnormal [facility] (ALB, T.PRO, BILI T, BU/BC, ALT, AST, ALK PHOS)2020-12-04 20:48:20* Test Item Value Reference Range Interpretation Comme nts TOTAL BILI (test code = 0802435240) 0.3 mg/dL 0.1-1.1 BILI UNCON (test code = 9843404098) 0.1 mg/dL 0.1-1.1 BILI CONJ (test code = 8431863289) 0.0 mg/dL 0.0-0.3 T PROTEIN (test code = 9493593410) 7.0 g/dL 6.3-8.2 ALBUMIN (test code = 6175956895) 4.0 g/dL 3.5-5.0 ALK PHOS (test code = 0382296333) 114 U/L 34-122 ALTv (test code = 1742-6) 30 U/L 5-35 AST(SGOT) (test code = 0342694524) 23 U/L 13-40 Lab Interpretation (test cod e = 96181-4) Normal [facility] with Hgxrikbzutfd6824-60-78 20:35:01* Test Item Value Reference Range Interpretation [...] 34.0 g/dL 31.6-35.1 RDW-SD (test code = 35952-6) 39.8 fL 39.0-49.9 RDW-CV (test code = 788-0) 12.9 % 12.0-15.5 PLT (test code = 777-3) See_Comment [Automated messa ge] The system which generated this result transmitted reference range: 166 - 358 10*3/?L. The reference range was not used to interpret this result as normal/abnormal. MPV (test code = 49183-3) 9.3 fL 9.5-12.9 L NRBC/100 WBC (test code = 1160767620) See_Comment [Automated [employer]age] The system which generated this result transmitted reference range: 0.0 - 10.0 /100 WBCs. The reference range was not used to interpret this result as normal/abnormal. NRBC x10^3 (test code = 0965204889) <0.01 See_Comment [Automated messa ge] The system which generated this result transmitted reference range: 10*3/?L. The reference range was not used to interpret this result as normal/abnormal. GRAN MAT (NEUT) % (test code = 770-8) 71.5 % IMM GRAN % (test code = 8153129057) 0.30 % LYMPH % (test code = 736-9) 19.8 % MONO % (test code = 5905-5) 6.2 % EOS % (test code = 713-8) 1.8 % BASO % (test code = 706-2) 0.4 % GRAN MAT x10^3(ANC) (test code = 1654471674) 6.79 10*3/uL 1.88-7.09 IMM GRAN x10^3 (test code = 9946164249) 0.03 10*3/uL 0.00-0.06 LYMPH x10^3 (test code = 731-0) 1.88 10*3/uL 1.32-3.29 MONO x10^3 (test code = 742-7) 0.59 10*3/uL 0.33-0.92 EOS x10^3 (test code = 711-2) 0.17 10*3/uL 0.03-0.39 BASO x10^3 (test code = 704-7) 0.04 10*3/uL 0.01-0.07 Lab Interpretation (test code = 32126-2) Abnormal [facility] ([facility]INE)2020-11-04 02:54:38* Test Item Value Reference Range Interpretation Comme nts AMPHET (test code = 6911320397) Negative Negative Cocaine Metabolite (test code = 6277877975) Negative Negative OPIATES (test code = 4203670535) Presumptive Positive Negative A THC (test code = 1425762125) Negative Negative DARWIN (test code = DARWIN) Urine Drug Cutoff Ranges Amphetamine: ? 1,000 ng/mLCocaine: ? 150 ng/mLOpiates: ? 300 ng/mLCannabinoids: ?50 ng/mL The results are to be used only for medical (i.e., treatment) purposes. Unconfirmed screening results must not be used for non-medical purposes (e.g., employment testing, legal testing). Lab Interpretation (test code = 09282-2) Abnormal [facility] HospitalTROP[facility]IN U9266-52-02 02:51:11* Test Item Value Reference Range Interpretation Comme nts TROPONIN I (test code = 4531136588) 0.001 ng/mL See_Comment [Automated message] The system [...] biotin. ? Lab Interpretation (test code = 84576-8) Normal [facility] HospitalaPTT2021-04-30 02:41:10* Test Item Value Reference Range Interpretation Comme nts APTT Patient (test code = 3173-2) See_Comment [Automated message] The system which generated this result transmitted reference range: 23 - 38 Seconds. The reference range was not used to interpret this result as normal/abnormal. DARWIN (test code = DARWIN) The [facility] patient population mean normal value for aPTT is 30 seconds. Lab Interpretation (test code = 36200-9) Normal [facility] HospitalURINALYSIS2021-04-30 02:40:40* Test Item Value Reference Range Interpretation Comme nts APPEARANCE (test code = 3880587421) Clear Clear COLOR (test code = 2962663115) Yellow Yellow PH (test code = 8111913529) 4.8-8.0 SP GRAVITY (test code = 8030836067) 1.003-1.030 GLU U QUAL (test code = 3886334990) Normal Normal BLOOD (test code = 4809283748) Negative Negative KETONES (test code = 0179351394) Negative Negative PROTEIN (test code = 2887-8) Negative Negative UROBILIN (test code = 5443969341) Normal Normal BILIRUBIN (test code = 0701898047) Negative Negative NITRITE (test code = 3698930310) Negative Negative LEUK MARC (test code = 5117208681) Negative Negative RBC/HPF (test code = 4833809900) <1 See_Comment [Automated [employer]] The system which generated this result transmitted reference range: 0 - 3 HPF. The reference range was not used to interpret this result as normal/abnormal. WBC/HPF (test code = 8143241068) <1 See_Comment [Automated [employer]] The system which generated this result transmitted reference range: 0 - 5 HPF. The reference range was not used to interpret this result as normal/abnormal. BACTERIA (test code = 4745824034) Negative Negative MUCOUS (test code = 9271401476) Slight Negative LPF A SQ EPITH (test code = 3184308533) HPF Lab Interpretation (test code = 02903-5) Abnormal [facility] METABOLIC PANEL (98630)2020-11-04 02:40:09* Test Item Value Reference Range Interpretation Comme nts NA (test code = 3381414060) 141 mmol/L 135-145 K (test code = 9012494796) 4.1 mmol/L 3.5-5.0 CL (test code = 5464917105) 110 mmol/L 98-108 H CO2 TOTAL (test code = 5476136736) 22 mmol/L 23-31 L AGAP (test code = 7773668344) 2-16 BUN (test code = 7335055587) 15 mg/dL 7-23 GLUCOSE (test code = 2042503024) 115 mg/dL 70-110 H CREATININE (test code = 4739290157) 0.69 mg/dL 0.50-1.04 TOTAL BILI (test code = 4696330375) 0.2 mg/dL 0.1-1.1 CALCIUM (test code = 4884758170) 9.2 mg/dL 8.6-10.6 T PROTEIN (test code = 8693474768) 6.8 g/dL 6.3-8.2 ALBUMIN (test code = 1475592673) 4.1 g/dL 3.5-5.0 ALK PHOS (test code = 1205494699) 69 U/L 34-122 ALTv (test code = 1742-6) 20 U/L 5-35 AST(SGOT) (test code = 2164923790) 23 U/L 13-40 eGFR (test code = 6314129927) mL/min/1.73m2 DARWIN (test code = DARWIN) Association [...] imaging tests). Lab Interpretation (test code = 47629-3) Abnormal [facility] HospitalLIPASE, RCKOM0022-92-72 02:39:49* Test Item Value Reference Range Interpretation Comme nts LIPASE (test code = 1162286246) 117 U/L 0-220 Lab Interpretation (test cod e = 16764-7) Normal [facility] HospitalPROTHROMBIN TIME / LJG1364-48-31 02:39:08* Test Item Value Reference Range Interpretation Comme nts PROTIME PATIENT (test code = 5964-2) See_Comment [Automated [employer]] The system which generated this result transmitted reference range: 12.0 - 14.7 Seconds. The reference range was not used to interpret this result as normal/abnormal. INR (test code = 6301-6) Normal INR <1.1; Warfarin Therapeutic range 2.0 to 3.0 or 2.5 to 3.5, depending upon the indications. Lab Interpretation (test code = 72992-6) Normal [facility] HospitalCBC WITH ILDR9224-54-55 02:30:11* Test Item Value Reference Range Interpretation Comme nts WBC (test code = 6690-2) See_Comment H [Automated [employer]] The system which generated this result transmitted reference range: 4.30 - 11.10 10*3/?L. The reference range was not used to interpret this result as normal/abnormal. RBC (test code = 789-8) See_Comment [Automated [employer]] The system which generated this result [...] 32.8 g/dL 31.6-35.1 RDW-SD (test code = 08884-2) 44.1 fL 39.0-49.9 RDW-CV (test code = 788-0) 13.8 % 12.0-15.5 PLT (test code = 777-3) See_Comment [Automated messa ge] The system which generated this result transmitted reference range: 166 - 358 10*3/?L. The reference range was not used to interpret this result as normal/abnormal. MPV (test code = 47229-5) 9.6 fL 9.5-12.9 NRBC/100 WBC (test code = 4411466613) See_Comment [Automated me ssage] The system which generated this result transmitted reference range: 0.0 - 10.0 /100 WBCs. The reference range was not used to interpret this result as normal/abnormal. NRBC x10^3 (test code = 8690434411) <0.01 See_Comment [Automated messa ge] The system which generated this result transmitted reference range: 10*3/?L. The reference range was not used to interpret this result as normal/abnormal. GRAN MAT (NEUT) % (test code = 770-8) 65.9 % IMM GRAN % (test code = 6501785412) 0.70 % LYMPH % (test code = 736-9) 25.9 % MONO % (test code = 5905-5) 5.1 % EOS % (test code = 713-8) 2.0 % BASO % (test code = 706-2) 0.4 % GRAN MAT x10^3(ANC) (test code = 8224991760) 8.82 10*3/uL 1.88-7.09 H IMM GRAN x10^3 (test code = 0603074966) 0.09 10*3/uL 0.00-0.06 H LYMPH x10^3 (test code = 731-0) 3.46 10*3/uL 1.32-3.29 H MONO x10^3 (test code = 742-7) 0.68 10*3/uL 0.33-0.92 EOS x10^3 (test code = 711-2) 0.27 10*3/uL 0.03-0.39 BASO x10^3 (test code = 704-7) 0.05 10*3/uL 0.01-0.07 Lab Interpretation (test code = 27878-5) Abnormal [facility] HospitalCOVID[facility] (ID NOW RAPID TESTING)2020-09-17 16:56:05* Test Item Value Reference Range Interpretation Comme nts SARS-CoV-2 Rapid ID NOW (test code = 19690-5) Not Detected Not Detected DARWIN (test code = DARWIN) ID NOW COVID-19 As say is an isothermal nucleic acid amplification test intended for the qualitative detection of nucleic acid from SARS-CoV-2 viral RNA in nasopharyngeal (G[employer]END[employer]) specimens. It is used under Emergency Use [...] clinically indicated. Lab Interpretation (test code = 71769-7) Normal [facility] HospitalRAPID STREP SCREEN FOR GROUP O9336-33-26 16:54:09* Test Item Value Reference Range Interpretation Comme nts Streptococcus pyogenes (grou p A) antigen (test code = 73619-0) Negative Negative Lab Interpretation (test cod e = 87689-7) Normal [facility] HospitalXR [facility] 3+ VW GTNC1302-22-36 07:29:48 Impression: No acute fracture or dislocation. RL: 2824AFC: 45596 End of Report Exam: Left Hand, 09/07/2020 [...] swelling.IMPRESSIONImpression: No acute fracture or dislocation.RL: 2824AFC: 91734Ngj of Report [facility]XR FOREARM 2 VW [id number] 07:28:55No acute abnormality of the left forearm. RL: 6200AFC: 76851 Patient name: CHARITY MONROYOB: 1980 40 years [...] acute abnormality of the left forearm.RL: [id number]: [id number] [facility] 09:06:00* Test Item Value Reference Range Interpretation Comme nts APPEARANCE (test code = 9291766083) Hazy Clear A COLOR (test code = 2460616633) Yellow Yellow PH (test code = 0888385154) 4.8-8.0 SP GRAVITY (test code = 7812959907) 1.003-1.030 GLU U QUAL (test code = 0126952151) Normal Normal BLOOD (test code = 3391914990) Negative Negative KETONES (test code = 3912273287) Negative Negative PROTEIN (test code = 2887-8) Negative Negative UROBILIN (test code = 3597312195) Normal Normal BILIRUBIN (test code = 5982289793) Negative Negative NITRITE (test code = 1784341274) Negative Negative LEUK MARC (test code = 3074968643) Negative Negative RBC/HPF (test code = 0038893742) See_Comment [Automated messa ge] The system which generated this result transmitted reference range: 0 - 3 HPF. The reference range was not used to interpret this result as normal/abnormal. WBC/HPF (test code = 8026908162) <1 See_Comment [Automated messa ge] The system which generated this result transmitted reference range: 0 - 5 HPF. The reference range was not used to interpret this result as normal/abnormal. BACTERIA (test code = 1514199973) Moderate Negative A SQ EPITH (test code = 7907120680) HPF Lab Interpretation (test code = 85135-2) Abnormal [facility] with Jmlfxzcdajvq8166-32-99 08:50:00* Test Item Value Reference Range Interpretation Comme nts WBC (test code = 6690-2) See_Comment H [Automated messa ge] The system which generated this result transmitted reference range: 4.30 - 11.10 10*3/?L. The reference range was not used to interpret this result as normal/abnormal. RBC (test code = 789-8) See_Comment [Automated [employer]] The system which generated this result [...] 34.0 g/dL 31.6-35.1 RDW-SD (test code = 94831-6) 42.6 fL 39-49.9 RDW-CV (test code = 788-0) 13.6 % 12-15.5 PLT (test code = 777-3) See_Comment H [Automated messa ge] The system which generated this result transmitted reference range: 166 - 358 10*3/?L. The reference range was not used to interpret this result as normal/abnormal. MPV (test code = 68928-4) 9.7 fL 9.5-12.9 NRBC/100 WBC (test code = 6724153969) See_Comment [Automated [employer] ssage] The system which generated this result transmitted reference range: 0.0 - 10.0 /100 WBCs. The reference range was not used to interpret this result as normal/abnormal. NRBC x10^3 (test code = 9072068675) <0.01 See_Comment [Automated messa ge] The system which generated this result transmitted reference range: 10*3/?L. The reference range was not used to interpret this result as normal/abnormal. GRAN MAT (NEUT) % (test code = 770-8) 49.7 % IMM GRAN % (test code = 2702760077) 0.50 % LYMPH % (test code = 736-9) 41.0 % MONO % (test code = 5905-5) 6.5 % EOS % (test code = 713-8) 1.9 % BASO % (test code = 706-2) 0.4 % GRAN MAT x10^3(ANC) (test code = 1539783274) 6.39 10*3/uL 1.88-7.09 IMM GRAN x10^3 (test code = 3303190615) 0.07 10*3/uL 0-0.06 H LYMPH x10^3 (test code = 731-0) 5.27 10*3/uL 1.32-3.29 H MONO x10^3 (test code = 742-7) 0.84 10*3/uL 0.33-0.92 EOS x10^3 (test code = 711-2) 0.24 10*3/uL 0.03-0.39 BASO x10^3 (test code = 704-7) 0.05 10*3/uL 0.01-0.07 Lab Interpretation (test code = 15365-1) Abnormal [facility] [id number] 08:45:00* Test Item Value Reference Range Interpretation Comme nts POCT PREG (test code = 1605) neg On board controls acceptable with C Line (test code = 3574) yes POCT PREG LOT # (test code = 3575) [id number] POCT PREG TEST DATE ( test code = 3576) 04/06/2022 Lab Interpretation (test cod e = 96271-8) Normal [facility] Metabolic Mkaql2157-76-96 08:30:00* Test Item Value Reference Range Interpretation Comme nts NA (test code = 8882731556) 137 mmol/L 135-145 K (test code = 6471966704) 3.3 mmol/L 3.5-5 L CL (test code = 5673956414) 102 mmol/L 98-108 CO2 TOTAL (test code = 9116024633) 24 mmol/L 23-31 AGAP (test code = 8948375068) 2-16 BUN (test code = 4889516845) 9 mg/dL 7-23 GLUCOSE (test code = 6717488619) 116 mg/dL 70-110 H CREATININE (test code = 1397430847) 0.48 mg/dL 0.5-1.04 L TOTAL BILI (test code = 6052013681) 0.3 mg/dL 0.1-1.1 CALCIUM (test code = 2400547565) 9.4 mg/dL 8.6-10.6 T PROTEIN (test code = 0895472557) 7.0 g/dL 6.3-8.2 ALBUMIN (test code = 9517414787) 4.3 g/dL 3.5-5 ALK PHOS (test code = 1733664321) 127 U/L 34-122 H ALTv (test code = 1742-6) 87 U/L 5-35 H AST(SGOT) (test code = 9487482951) 34 U/L 13-40 eGFR Calculation (Non-) (test code = 2323119640) mL/min/1.73m2 eGFR Calculation () (test code = 3930273267) mL/min/1.73m2 DARWIN (test code = DARWIN) Association [...] imaging tests). Lab Interpretation (test code = 44964-0) Abnormal [facility] HospitalLipase, Vvqkk8577-21-78 08:30:00* Test Item Value Reference Range Interpretation Comme nts LIPASE (test code = 6616845552) 297 U/L 0-220 H Lab Interpretation (test cod e = 52417-4) [facility]normal [facility]IS2021-[facility]-07 19:25:00* Test Item Value Reference Range Interpretation Comme nts APPEARANCE (test code = 8713096422) Clear Clear COLOR (test code = 9912269469) Straw Yellow A PH (test code = 1987503588) 4.8-8.0 SP GRAVITY (test code = 0155827267) 1.003-1.030 GLU U QUAL (test code = 0939709394) Normal Normal BLOOD (test code = 9964471197) 1+ Negative A KETONES (test code = 7308901223) Negative Negative PROTEIN (test code = 2887-8) Negative Negative UROBILIN (test code = 9513600974) Normal Normal BILIRUBIN (test code = 5390090210) Negative Negative NITRITE (test code = 3697114776) Negative Negative LEUK MARC (test code = 6101779001) Negative Negative RBC/HPF (test code = 9327069503) See_Comment [Automated [employer]] The system which generated this result transmitted reference range: 0 - 3 HPF. The reference range was not used to interpret this result as normal/abnormal. WBC/HPF (test code = 4636242294) <1 See_Comment [Automated [employer]] The system which generated this result transmitted reference range: 0 - 5 HPF. The reference range was not used to interpret this result as normal/abnormal. BACTERIA (test code = 8099574283) Few Negative A MUCOUS (test code = 8154070267) Slight Negative LPF A SQ EPITH (test code = 5717580844) HPF Lab Interpretation (test code = 73973-4) [facility] [id number] 19:09:00* Test Item Value Reference Range Interpretation Comme nts TROPONIN I (test code = 0252245566) <0.012 See_Comment [Automated message] The system which [...] biotin. ? Lab Interpretation (test code = 75946-8) Normal [facility] - DRUG SCREEN KIPRBC8966-45-90 19:09:00* Test Item Value Reference Range Interpretation Comme nts BENZO U (test code = 0461943615) Presumptive Positive Negative A ROSA U (test code = 2374136265) Negative Negative AMPHET (test code = 4382051072) Negative Negative THC (test code = 0346549458) Negative Negative METHADONE (test code = 5949655408) Negative Negative Meth U (test code = 5543790770) Negative Negative OPIATES (test code = 2115397405) Negative Negative Cocaine Metabolite (test code = 9078632547) Negative Negative PROPOXY (test code = 4233703235) Negative Negative Tric U (test code = 5160618639) Negative Negative PCP (test code = 4899792405) Negative Negative OXYCOD (test code = 9508267386) Negative Negative DARWIN (test code = DARWIN) [...] legal testing). Lab Interpretation (test code = 65914-6) [facility]2020-08-14 19:01:00* Test Item Value Reference Range Interpretation Comme nts NA (test code = 1231885004) 138 mmol/L 135-145 K (test code = 1660626850) 4.5 mmol/L 3.5-5 CL (test code = 5021700501) 106 mmol/L 98-108 CO2 TOTAL (test code = 4537940771) 21 mmol/L 23-31 L AGAP (test code = 8887560569) 2-16 BUN (test code = 6368994467) 13 mg/dL 7-23 GLUCOSE (test code = 5391458101) 97 mg/dL 70-110 CREATININE (test code = 2655485343) 0.48 mg/dL 0.5-1.04 L TOTAL BILI (test code = 5878143608) 0.4 mg/dL 0.1-1.1 CALCIUM (test code = 0114139275) 9.1 mg/dL 8.6-10.6 T PROTEIN (test code = 8757215192) 7.5 g/dL 6.3-8.2 ALBUMIN (test code = 5296515573) 4.3 g/dL 3.5-5 ALK PHOS (test code = 3590173467) 62 U/L 34-122 ALTv (test code = 1742-6) 19 U/L 5-35 AST(SGOT) (test code = 4525911539) 26 U/L 13-40 eGFR Calculation (Non-) (test code = 7628669544) mL/min/1.73m2 eGFR Calculation () (test code = 4783946606) mL/min/1.73m2 DARWIN (test code = DARWIN) Association [...] imaging tests). Lab Interpretation (test code = 10658-0) [facility]normal [facility]LIP[facility]2021-[facility]-07 19:01:00* Test Item Value Reference Range Interpretation Comme nts LIPASE (test code = 8526195810) 76 U/L 0-220 Lab Interpretation (test cod e = 79095-1) Normal [facility] HospitalCB WITH [id number] 18:47:00* Test Item Value Reference Range Interpretation Comme nts WBC (test code = 6690-2) See_Comment H [Automated [employer]] The system which generated this result transmitted reference range: 4.30 - 11.10 10*3/?L. The reference range was not used to interpret this result as normal/abnormal. RBC (test code = 789-8) See_Comment [Automated [employer]] The system which generated this result transmitted [...] 34.3 g/dL 31.6-35.1 RDW-SD (test code = 31093-0) 42.0 fL 39-49.9 RDW-CV (test code = 788-0) 13.4 % 12-15.5 PLT (test code = 777-3) See_Comment [Automated messa ge] The system which generated this result transmitted reference range: 166 - 358 10*3/?L. The reference range was not used to interpret this result as normal/abnormal. MPV (test code = 94058-3) 9.9 fL 9.5-12.9 NRBC/100 WBC (test code = 8343167520) See_Comment [Automated [employer] ssage] The system which generated this result transmitted reference range: 0.0 - 10.0 /100 WBCs. The reference range was not used to interpret this result as normal/abnormal. NRBC x10^3 (test code = 3496047451) <0.01 See_Comment [Automated messa ge] The system which generated this result transmitted reference range: 10*3/?L. The reference range was not used to interpret this result as normal/abnormal. GRAN MAT (NEUT) % (test code = 770-8) 60.1 % IMM GRAN % (test code = 1363130334) 0.40 % LYMPH % (test code = 736-9) 31.3 % MONO % (test code = 5905-5) 6.0 % EOS % (test code = 713-8) 1.9 % BASO % (test code = 706-2) 0.3 % GRAN MAT x10^3(ANC) (test code = 0203346359) 6.96 10*3/uL 1.88-7.09 IMM GRAN x10^3 (test code = 8014419794) 0.05 10*3/uL 0-0.06 LYMPH x10^3 (test code = 731-0) 3.62 10*3/uL 1.32-3.29 H MONO x10^3 (test code = 742-7) 0.69 10*3/uL 0.33-0.92 EOS x10^3 (test code = 711-2) 0.22 10*3/uL 0.03-0.39 BASO x10^3 (test code = 704-7) 0.04 10*3/uL 0.01-0.07 Lab Interpretation (test code = 15820-6) [facility]normal [facility]XR CHEST 1 [id number] 18:17:08No acute cardiopulmonary abnormality. Preliminary Report Dictated [...] reviewed this study and agree with theabove report.[facility] HospitalLactic Acid Whole [id number] 18:11:00* Test Item Value Reference Range Interpretation Comme nts LACTIC ACID (test code = 2615433953) 1.95 mmol/L 0.5-2.2 Lab Interpretation (test cod e = 11624-3) Normal [facility] HospitalCT ABDOMEN PELVIS WO [id number] 05:45:24No acute abdominopelvic abnormality. No urolithiasis. 2.5 [...] mild spinal canal stenosis at these levels. [facility], Radiant Results Inft User - 08/10/2020 11:46 [...] reviewed this study and agree with the abovereport.[facility] HospitalPOMO [id number] 03:10:00* Test Item Value Reference Range Interpretation Comme nts POCT PREG (test code = 1605) Negative On board controls acceptable with C Line (test code = 3574) Present POCT PREG LOT # (test code = 3575) [id number] POCT PREG TEST DATE ( test code = 3576) 03/07/2022 Lab Interpretation (test cod e = 40482-1) Normal [facility] with Yhtefyccjnpz3885-31-83 03:05:00* Test Item Value Reference Range Interpretation [...] 34.7 g/dL 31.6-35.1 RDW-SD (test code = 77088-6) 42.0 fL 39-49.9 RDW-CV (test code = 788-0) 13.5 % 12-15.5 PLT (test code = 777-3) See_Comment [Automated message] The system which generated this result transmitted reference range: 166 - 358 10*3/?L. The reference range was not used to interpret this result as normal/abnormal. MPV (test code = 53752-9) 9.8 fL 9.5-12.9 NRBC/100 WBC (test code = 6814754577) See_Comment [Automated message] The system which generated this result transmitted reference range: 0.0 - 10.0 /100 WBCs. The reference range was not used to interpret this result as normal/abnormal. NRBC x10^3 (test code = 4369356265) <0.01 See_Comment [Automated message] The system which generated this result transmitted reference range: 10*3/?L. The reference range was not used to interpret this result as normal/abnormal. GRAN MAT (NEUT) % (test code = 770-8) 66.2 % IMM GRAN % (test code = 7113435772) 0.60 % LYMPH % (test code = 736-9) 25.4 % MONO % (test code = 5905-5) 5.6 % EOS % (test code = 713-8) 1.9 % BASO % (test code = 706-2) 0.3 % GRAN MAT x10^3(ANC) (test code = 4049227320) 10.64 10*3/uL 1.88-7.09 H IMM GRAN x10^3 (test code = 2935181537) 0.09 10*3/uL 0-0.06 H LYMPH x10^3 (test code = 731-0) 4.09 10*3/uL 1.32-3.29 H MONO x10^3 (test code = 742-7) 0.90 10*3/uL 0.33-0.92 EOS x10^3 (test code = 711-2) 0.31 10*3/uL 0.03-0.39 BASO x10^3 (test code = 704-7) 0.05 10*3/uL 0.01-0.07 Lab Interpretation (test code = 16172-8) Abnormal [facility] HospitalUrinalysis2021-02-04 02:56:00* Test Item Value Reference Range Interpretation Comme nts APPEARANCE (test code = 4320295442) Hazy Clear A COLOR (test code = 7039301244) Yellow Yellow PH (test code = 8479871906) 4.8-8.0 SP GRAVITY (test code = 8141318572) 1.003-1.030 GLU U QUAL (test code = 4560496027) Normal Normal BLOOD (test code = 9898420470) Negative Negative KETONES (test code = 1783660017) Negative Negative PROTEIN (test code = 2887-8) Negative Negative UROBILIN (test code = 3654478574) Normal Normal BILIRUBIN (test code = 4980911139) Negative Negative NITRITE (test code = 1489405805) Negative Negative LEUK MARC (test code = 9004192569) Negative Negative RBC/HPF (test code = 4165453692) See_Comment [Automated messa ge] The system which generated this result transmitted reference range: 0 - 3 HPF. The reference range was not used to interpret this result as normal/abnormal. WBC/HPF (test code = 1252657617) See_Comment [Automated messa ge] The system which generated this result transmitted reference range: 0 - 5 HPF. The reference range was not used to interpret this result as normal/abnormal. BACTERIA (test code = 6129112747) Few Negative A MUCOUS (test code = 4382242023) Slight Negative LPF A SQ EPITH (test code = 7849242467) HPF YEAST BUD (test code = 6789380039) See_Comment H [Automated messa ge] The system which generated this result transmitted reference range: <=1 HPF. The reference range was not used to interpret this result as normal/abnormal. Lab Interpretation (test code = 22736-7) Abnormal [facility] HospitalTroponin [id number] 02:24:00* Test Item Value Reference Range Interpretation Comme nts TROPONIN I (test code = 2295296872) <0.012 See_Comment [Automated message] The system which [...] biotin. ? Lab Interpretation (test code = 38832-8) Normal [facility] HospitalCOVID-[facility] (ID NOW RAPID TESTING)2020-08-11 02:15:00* Test Item Value Reference Range Interpretation Comme nts SARS-CoV-2 Rapid ID NOW (test code = 61566-3) Not Detected Not Detected DARWIN (test code = DARWIN) ID NOW COVID-19 As say is an isothermal nucleic acid amplification test intended for the qualitative detection of nucleic acid from SARS-CoV-2 viral RNA in nasopharyngeal (GAS PUMP ATTENDANT) specimens. It is used under Emergency Use [...] clinically indicated. Lab Interpretation (test code = 56205-7) Normal [facility] Metabolic Panel (NA, K, CL, CO2, GLUCOSE, BUN, CREATININE, CA)2020-08-11 02:13:00* Test Item Value Reference Range Interpretation Comme nts NA (test code = 7609501443) 137 mmol/L 135-145 K (test code = 0445802835) 4.0 mmol/L 3.5-5 CL (test code = 2276431898) 107 mmol/L 98-108 CO2 TOTAL (test code = 4631779106) 19 mmol/L 23-31 L AGAP (test code = 7875606759) 2-16 BUN (test code = 2593377608) 10 mg/dL 7-23 GLUCOSE (test code = 3156694901) 106 mg/dL 70-110 CREATININE (test code = 2225503576) 0.47 mg/dL 0.5-1.04 L CALCIUM (test code = 8007002151) 9.2 mg/dL 8.6-10.6 eGFR Calculation (Non-) (test code = 0567788113) mL/min/1.73m2 eGFR Calculation () (test code = 1115739186) mL/min/1.73m2 DARWIN (test code = DARIWN) Association of Glomerular Filtration Rate (GFR) and [...] imaging tests). Lab Interpretation (test code = 43367-5) Abnormal [facility] HospitalHepatic Function Panel (ALB, T.PRO, BILI T, BU/BC, ALT, AST, ALK PHOS)2020-08-11 02:13:00* Test Item Value Reference Range Interpretation Comme nts TOTAL BILI (test code = 8450140174) 0.4 mg/dL 0.1-1.1 BILI UNCON (test code = 5348150794) 0.3 mg/dL 0.1-1.1 BILI CONJ (test code = 3649150218) 0.0 mg/dL 0-0.3 T PROTEIN (test code = 0338832979) 7.5 g/dL 6.3-8.2 ALBUMIN (test code = 5386858814) 4.4 g/dL 3.5-5 ALK PHOS (test code = 2114526508) 48 U/L 34-122 ALTv (test code = 1742-6) 12 U/L 5-35 AST(SGOT) (test code = 8052018843) 22 U/L 13-40 Lab Interpretation (test cod e = 71218-4) Normal [facility] HospitalLipase Pftwr4918-24-42 02:13:00* Test Item Value Reference Range Interpretation Comme nts LIPASE (test code = 9462233731) 78 U/L 0-220 Lab Interpretation (test cod e = 51046-0) Normal [facility] HospitalLactic Acid Whole Rsbsv0595-48-85 02:05:00* Test Item Value Reference Range Interpretation Comme nts LACTIC ACID (test code = 8350612734) 1.47 mmol/L 0.5-2.2 Lab Interpretation (test cod e = 87389-9) Normal [facility] HospitalXR FOREARM 2 VW [id number] 14:31:40No acute bony abnormality. Soft tissue swelling. [...] reviewed this study and agree with the abovereport.[facility]COVID[facility] (ID NOW RAPID TESTING)2020-08-07 14:18:00* Test Item Value Reference Range Interpretation Comme nts SARS-CoV-2 Rapid ID NOW (test code = 64135-6) Not Detected Not Detected DARWIN (test code = DARWIN) ID NOW COVID-19 As say is an isothermal nucleic acid amplification test intended for the qualitative detection of nucleic acid from SARS-CoV-2 viral RNA in nasopharyngeal (GAS PUMP ATTENDANT) specimens. It is used under Emergency Use [...] clinically indicated. Lab Interpretation (test code = 14770-0) Normal [facility] HospitalTROPONIN [id number] 02:54:00* Test Item Value Reference Range Interpretation Comme nts TROPONIN I (test code = 6687603222) <0.012 See_Comment [Automated message] The system which [...] biotin. ? Lab Interpretation (test code = 67060-5) Normal [facility] HospitalLIPASE2020-12-25 02:37:00* Test Item Value Reference Range Interpretation Comme nts LIPASE (test code = 5408704229) 76 U/L 0-220 Lab Interpretation (test cod e = 78885-7) Normal [facility] HospitalURINALYSIS2020-12-25 01:54:00* Test Item Value Reference Range Interpretation Comme nts APPEARANCE (test code = 2265685780) Clear Clear COLOR (test code = 3996717273) Straw Yellow A PH (test code = 1109306196) 4.8-8.0 SP GRAVITY (test code = 1763858527) 1.003-1.030 GLU U QUAL (test code = 1349504028) Normal Normal BLOOD (test code = 8347945099) 3+ Negative A KETONES (test code = 4206430244) Negative Negative PROTEIN (test code = 2887-8) Negative Negative UROBILIN (test code = 2608128704) Normal Normal BILIRUBIN (test code = 6186587576) Negative Negative NITRITE (test code = 9026434810) Negative Negative LEUK MARC (test code = 7520788504) Negative Negative RBC/HPF (test code = 0849042503) See_Comment [Automated [employer]] The system which generated this result transmitted reference range: 0 - 3 HPF. The reference range was not used to interpret this result as normal/abnormal. WBC/HPF (test code = 2558649776) <1 See_Comment [Automated [employer]] The system which generated this result transmitted reference range: 0 - 5 HPF. The reference range was not used to interpret this result as normal/abnormal. BACTERIA (test code = 9198909271) Few Negative A MUCOUS (test code = 9058205196) Slight Negative LPF A SQ EPITH (test code = 6661648645) HPF Lab Interpretation (test code = 74002-4) Abnormal [facility] WITH [id number] 00:57:00* Test Item Value Reference Range Interpretation Comme nts WBC (test code = 6690-2) See_Comment [Automated [employer]] The system which generated this result transmitted reference range: 4.30 - 11.10 10*3/?L. The reference range was not used to interpret this result as normal/abnormal. RBC (test code = 789-8) See_Comment [Automated [employer]] The system which generated this result [...] 34.0 g/dL 31.6-35.1 RDW-SD (test code = 96442-8) 41.7 fL 39-49.9 RDW-CV (test code = 788-0) 13.2 % 12-15.5 PLT (test code = 777-3) See_Comment [Automated [employer]a ge] The system which generated this result transmitted reference range: 166 - 358 10*3/?L. The reference range was not used to interpret this result as normal/abnormal. MPV (test code = 97970-6) 9.4 fL 9.5-12.9 L NRBC/100 WBC (test code = 6185684864) See_Comment [Automated [employer]] The system which generated this result transmitted reference range: 0.0 - 10.0 /100 WBCs. The reference range was not used to interpret this result as normal/abnormal. NRBC x10^3 (test code = 5433334627) <0.01 See_Comment [Automated [employer] ge] The system which generated this result transmitted reference range: 10*3/?L. The reference range was not used to interpret this result as normal/abnormal. GRAN MAT (NEUT) % (test code = 770-8) 51.8 % IMM GRAN % (test code = 2997847877) 0.50 % LYMPH % (test code = 736-9) 40.7 % MONO % (test code = 5905-5) 4.0 % EOS % (test code = 713-8) 2.5 % BASO % (test code = 706-2) 0.5 % GRAN MAT x10^3(ANC) (test code = 5505234715) 5.38 10*3/uL 1.88-7.09 IMM GRAN x10^3 (test code = 7412377370) 0.05 10*3/uL 0-0.06 LYMPH x10^3 (test code = 731-0) 4.22 10*3/uL 1.32-3.29 H MONO x10^3 (test code = 742-7) 0.42 10*3/uL 0.33-0.92 EOS x10^3 (test code = 711-2) 0.26 10*3/uL 0.03-0.39 BASO x10^3 (test code = 704-7) 0.05 10*3/uL 0.01-0.07 Lab Interpretation (test code = 62314-5) Abnormal [facility]ADC,CLC OR L[facility] ONLY - INFLUENZA A & B DIRECT [id number] 00:51:00* Test Item Value Reference Range Interpretation Comme nts Influenza A (test code = 53706-2) Negative Negative Influenza B (test code = 10503-9) Negative Negative Lab Interpretation (test cod e = 32485-5) Normal [facility] HospitalPOCT [id number] 00:51:00* Test Item Value Reference Range Interpretation Comme nts POCT PREG (test code = 1605) negative On board controls acceptable with C Line (test code = 3574) present POCT PREG LOT # (test code = 3575) [id number] POCT PREG TEST DATE ( test code = 3576) 11/04/2021 Lab Interpretation (test cod e = 25121-3) Normal [facility] HospitalTROPONIN [id number] 00:46:00* Test Item Value Reference Range Interpretation Comme nts TROPONIN I (test code = 3565506052) <0.012 See_Comment [Automated message] The system which [...] biotin. ? Lab Interpretation (test code = 02288-6) Normal [facility] METABOLIC PANEL (NA, K, CL, CO2, GLUCOSE, BUN, CREATININE, CA)2020-07-01 00:46:00* Test Item Value Reference Range Interpretation Comme nts NA (test code = 7150701609) 141 mmol/L 135-145 K (test code = 0417966971) 3.8 mmol/L 3.5-5 CL (test code = 8762392937) 108 mmol/L 98-108 CO2 TOTAL (test code = 2047558587) 25 mmol/L 23-31 AGAP (test code = 5805415828) 2-16 BUN (test code = 5080432665) 10 mg/dL 7-23 GLUCOSE (test code = 2965495354) 92 mg/dL 70-110 CREATININE (test code = 6326900523) 0.58 mg/dL 0.5-1.04 CALCIUM (test code = 3042934768) 9.4 mg/dL 8.6-10.6 eGFR Calculation (Non-) (test code = 5684195419) mL/min/1.73m2 eGFR Calculation () (test code = 1808078354) mL/min/1.73m2 DARWIN (test code = DARWIN) Association [...] or urine or abnormalities in imaging tests). [facility] [id number] 00:43:00* Test Item Value Reference Range Interpretation Comme nts NT-proBNP (test code = 7113028852) 332 pg/mL See_Comment H [Automated message] The system which generated this result transmitted reference range: <=125. The reference range was not used to interpret this result as normal/abnormal. DARWIN (test code = DARWIN) Biotin has been reported to cause a negative bias, interpret results relative to patient's use of biotin. Lab Interpretation (test code = 53444-7) Abnormal [facility] 1 [id number] 00:20:50No acute cardiopulmonary abnormality Preliminary Report Dictated [...] reviewed this study and agree with the abovereport.[facility] CERVICAL SPINE WO [id number] 23:23:[address] EXAMINATION: CT [...] lung apices are unremarkable. IMPRESSIONUnremarkable cervical spine CT.[facility] HospitalPOMO Lsoa9810-81-25 01:50:00* Test Item Value Reference Range Interpretation Comme nts POCT PREG (test code = 1605) Negative On board controls acceptable with C Line (test code = 3574) Present POCT PREG LOT # (test code = 3575) [id number] POCT PREG TEST DATE ( test code = 3576) 10/05/2021 Lab Interpretation (test cod e = 86880-1) Normal [facility] HospitalTroponin [id number] 01:24:00* Test Item Value Reference Range Interpretation Comme nts TROPONIN I (test code = 7020687803) <0.012 See_Comment [Automated message] The system which [...] biotin. ? Lab Interpretation (test code = 21390-1) Normal [facility] HospitalCOVID-19 (ID NOW RAPID TESTING)2020-06-13 01:22:00* Test Item Value Reference Range Interpretation Comme nts SARS-CoV-2 Rapid ID NOW (test code = 71117-4) Not Detected Not Detected DARWIN (test code = DARWIN) ID NOW COVID-19 As say is an isothermal nucleic acid amplification test intended for the qualitative detection of nucleic acid from SARS-CoV-2 viral RNA in nasopharyngeal (GAS PUMP ATTENDANT) specimens. It is used under Emergency Use [...] clinically indicated. Lab Interpretation (test code = 46901-0) Normal [facility]-[id number] 01:16:00* Test Item Value Reference Range Interpretation Comments D-DIMER (test code = 1256917546) See_Comment [Automated message] The system which generated [...] a diagnosis. Lab Interpretation (test code = 23399-5) Normal [facility]Ba[facility] (NA, K, CL, CO2, GLUCOSE, BUN, CREATININE, CA)2020-06-13 01:13:00* Test Item Value Reference Range Interpretation Comme nts NA (test code = 4760848476) 137 mmol/L 135-145 K (test code = 4614588323) 4.2 mmol/L 3.5-5 CL (test code = 3260449742) 103 mmol/L 98-108 CO2 TOTAL (test code = 3353929507) 25 mmol/L 23-31 AGAP (test code = 7985953479) 2-16 BUN (test code = 9370027141) 11 mg/dL 7-23 GLUCOSE (test code = 0467366833) 98 mg/dL 70-110 CREATININE (test code = 1042223012) 0.52 mg/dL 0.5-1.04 CALCIUM (test code = 9951720962) 10.3 mg/dL 8.6-10.6 eGFR Calculation (Non-) (test code = 2478462235) mL/min/1.73m2 eGFR Calculation () (test code = 2415459455) mL/min/1.73m2 DARWIN (test code = DARWIN) Association [...] or urine or abnormalities in imaging tests). [facility] HospitalHepatic Function Panel (ALB, T.PRO, BILI T, BU/BC, ALT, AST, ALK PHOS)2020-06-13 01:13:00* Test Item Value Reference Range Interpretation Comme nts TOTAL BILI (test code = 6586320422) 0.5 mg/dL 0.1-1.1 BILI UNCON (test code = 4548777711) 0.3 mg/dL 0.1-1.1 BILI CONJ (test code = 9429023441) 0.0 mg/dL 0-0.3 T PROTEIN (test code = 6210863069) 7.3 g/dL 6.3-8.2 ALBUMIN (test code = 0027196441) 4.2 g/dL 3.5-5 ALK PHOS (test code = 2163781256) 85 U/L 34-122 ALTv (test code = 1742-6) 66 U/L 5-35 H AST(SGOT) (test code = 8339804594) 32 U/L 13-40 Lab Interpretation (test cod e = 04461-5) Abnormal [facility] HospitalLipase [id number] 01:13:00* Test Item Value Reference Range Interpretation Comme nts LIPASE (test code = 5008948838) 60 U/L 0-220 Lab Interpretation (test cod e = 01898-4) Normal [facility] HospitalUrinalysis2020-12-07 01:03:00* Test Item Value Reference Range Interpretation Comme nts APPEARANCE (test code = 8910532900) Clear Clear COLOR (test code = 6821201634) Straw Yellow A PH (test code = 1878768606) 4.8-8.0 SP GRAVITY (test code = 0970752750) 1.003-1.030 GLU U QUAL (test code = 3067478877) Normal Normal BLOOD (test code = 2693211802) Negative Negative KETONES (test code = 5810583689) Negative Negative PROTEIN (test code = 2887-8) Negative Negative UROBILIN (test code = 3319796932) Normal Normal BILIRUBIN (test code = 1685816716) Negative Negative NITRITE (test code = 7678403775) Negative Negative LEUK MARC (test code = 1939171130) Negative Negative RBC/HPF (test code = 2091626394) See_Comment [Automated messa ge] The system which generated this result transmitted reference range: 0 - 3 HPF. The reference range was not used to interpret this result as normal/abnormal. WBC/HPF (test code = 5709229557) See_Comment [Automated messa ge] The system which generated this result transmitted reference range: 0 - 5 HPF. The reference range was not used to interpret this result as normal/abnormal. BACTERIA (test code = 3528539569) Negative Negative MUCOUS (test code = 8932853770) Slight Negative LPF A SQ EPITH (test code = 0050056680) HPF Lab Interpretation (test code = 14649-3) Abnormal [facility] HospitalCBC with Issrunsufuwt9904-40-36 00:55:00* Test Item Value Reference Range Interpretation [...] 34.5 g/dL 31.6-35.1 RDW-SD (test code = 49444-4) 42.5 fL 39-49.9 RDW-CV (test code = 788-0) 13.5 % 12-15.5 PLT (test code = 777-3) See_Comment [Automated messa ge] The system which generated this result transmitted reference range: 166 - 358 10*3/?L. The reference range was not used to interpret this result as normal/abnormal. MPV (test code = 49036-5) 10.1 fL 9.5-12.9 NRBC/100 WBC (test code = 9882807536) See_Comment [Automated [employer] ssage] The system which generated this result transmitted reference range: 0.0 - 10.0 /100 WBCs. The reference range was not used to interpret this result as normal/abnormal. NRBC x10^3 (test code = 5568167741) <0.01 See_Comment [Automated messa ge] The system which generated this result transmitted reference range: 10*3/?L. The reference range was not used to interpret this result as normal/abnormal. GRAN MAT (NEUT) % (test code = 770-8) 61.9 % IMM GRAN % (test code = 9646322893) 0.60 % LYMPH % (test code = 736-9) 30.6 % MONO % (test code = 5905-5) 5.2 % EOS % (test code = 713-8) 1.4 % BASO % (test code = 706-2) 0.3 % GRAN MAT x10^3(ANC) (test code = 4489846070) 8.03 10*3/uL 1.88-7.09 H IMM GRAN x10^3 (test code = 9842307178) 0.08 10*3/uL 0-0.06 H LYMPH x10^3 (test code = 731-0) 3.97 10*3/uL 1.32-3.29 H MONO x10^3 (test code = 742-7) 0.68 10*3/uL 0.33-0.92 EOS x10^3 (test code = 711-2) 0.18 10*3/uL 0.03-0.39 BASO x10^3 (test code = 704-7) 0.04 10*3/uL 0.01-0.07 Lab Interpretation (test code = 05382-8) Abnormal [facility] HospitalCOVID-[facility] (ID NOW RAPID TESTING)2020-05-17 00:27:00* Test Item Value Reference Range Interpretation Comme nts SARS-CoV-2 Rapid ID NOW (test code = 49283-9) Not Detected Not Detected DARWIN (test code = DARWIN) ID NOW COVID-19 As say is an isothermal nucleic acid amplification test intended for the qualitative detection of nucleic acid from SARS-CoV-2 viral RNA in nasopharyngeal (GAS PUMP ATTENDANT) specimens. It is used under Emergency Use [...] clinically indicated. Lab Interpretation (test code = 32913-9) Normal [facility] Metabolic Panel (NA, K, CL, CO2, GLUCOSE, BUN, CREATININE, CA)2020-05-17 00:00:00* Test Item Value Reference Range Interpretation Comme nts NA (test code = 5343775620) 136 mmol/L 135-145 K (test code = 6285427639) 3.6 mmol/L 3.5-5 CL (test code = 9186775986) 103 mmol/L 98-108 CO2 TOTAL (test code = 7297852999) 26 mmol/L 23-31 AGAP (test code = 3362721542) 2-16 BUN (test code = 6753495033) 13 mg/dL 7-23 GLUCOSE (test code = 5253788498) 130 mg/dL 70-110 H CREATININE (test code = 5874845831) 0.58 mg/dL 0.5-1.04 CALCIUM (test code = 4255010936) 9.9 mg/dL 8.6-10.6 eGFR Calculation (Non-) (test code = 4312368075) mL/min/1.73m2 eGFR Calculation () (test code = 9759135631) mL/min/1.73m2 DARWIN (test code = DARWIN) Association [...] imaging tests). Lab Interpretation (test code = 07039-1) Abnormal [facility] HospitalHepatic Function Panel (ALB, T.PRO, BILI T, BU/BC, ALT, AST, ALK PHOS)2020-05-17 00:00:00* Test Item Value Reference Range Interpretation Comme nts TOTAL BILI (test code = 6515525271) 0.4 mg/dL 0.1-1.1 BILI UNCON (test code = 5632706806) 0.3 mg/dL 0.1-1.1 BILI CONJ (test code = 2843945088) 0.0 mg/dL 0-0.3 T PROTEIN (test code = 4205424681) 7.3 g/dL 6.3-8.2 ALBUMIN (test code = 9625750265) 4.3 g/dL 3.5-5 ALK PHOS (test code = 7748934026) 118 U/L 34-122 ALTv (test code = 1742-6) 119 U/L 5-35 H AST(SGOT) (test code = 2880971318) 47 U/L 13-40 H Lab Interpretation (test cod e = 93126-7) Abnormal [facility] HospitalLipase Tedbo8077-07-37 00:00:00* Test Item Value Reference Range Interpretation Comme nts LIPASE (test code = 6528405633) 70 U/L 0-220 Lab Interpretation (test cod e = 33054-4) Normal [facility] HospitalCBC with Ixyviynktqmw1006-62-55 23:49:00* Test Item Value Reference Range Interpretation Comme nts WBC (test code = 6690-2) See_Comment [Automated [employer]] The system which generated this result transmitted reference range: 4.30 - 11.10 10*3/?L. The reference range was not used to interpret this result as normal/abnormal. RBC (test code = 789-8) See_Comment [Automated [employer]] The system which generated this result transmitted [...] 33.3 g/dL 31.6-35.1 RDW-SD (test code = 43746-0) 42.8 fL 39-49.9 RDW-CV (test code = 788-0) 13.5 % 12-15.5 PLT (test code = 777-3) See_Comment [Automated messa ge] The system which generated this result transmitted reference range: 166 - 358 10*3/?L. The reference range was not used to interpret this result as normal/abnormal. MPV (test code = 34703-8) 9.8 fL 9.5-12.9 NRBC/100 WBC (test code = 5575954497) See_Comment [Automated me ssage] The system which generated this result transmitted reference range: 0.0 - 10.0 /100 WBCs. The reference range was not used to interpret this result as normal/abnormal. NRBC x10^3 (test code = 1228115172) <0.01 See_Comment [Automated me ssage] The system which generated this result transmitted reference range: 10*3/?L. The reference range was not used to interpret this result as normal/abnormal. GRAN MAT (NEUT) % (test code = 770-8) 62.5 % IMM GRAN % (test code = 8037822564) 0.50 % LYMPH % (test code = 736-9) 29.8 % MONO % (test code = 5905-5) 5.6 % EOS % (test code = 713-8) 1.1 % BASO % (test code = 706-2) 0.5 % GRAN MAT x10^3(ANC) (test code = 4139403438) 6.65 10*3/uL 1.88-7.09 IMM GRAN x10^3 (test code = 0243019508) 0.05 10*3/uL 0-0.06 LYMPH x10^3 (test code = 731-0) 3.17 10*3/uL 1.32-3.29 MONO x10^3 (test code = 742-7) 0.59 10*3/uL 0.33-0.92 EOS x10^3 (test code = 711-2) 0.12 10*3/uL 0.03-0.39 BASO x10^3 (test code = 704-7) 0.05 10*3/uL 0.01-0.07 [facility] HospitalACETAMINOPHEN2020-11-08 08:24:00* Test Item Value Reference Range Interpretation Comme nts ACETAMINOP (test code = 7541952780) 21.0 ug/mL 10-30 DARWIN (test code = DARWIN) Toxic: Greater joan n 200 ug/mL @ 4 hour post ingestion or greater than 50 ug/mL @ 12 hour post ingestion Lab Interpretation (test code = 77216-0) Normal [facility] HospitalETHANOL2020-11-08 06:37:00* Test Item Value Reference Range Interpretation Comme nts ALCOHOL (test code = 0578911911) <10 mg/dL DARWIN (test code = DARWIN) <10 [id number] Toxic>100 Depression of STRIPPER COLOR>400 Fatalities Reported [facility] HospitalBasi Metabolic Panel (NA, K, CL, CO2, GLUCOSE, BUN, CREATININE, CA)2020-05-15 06:35:00* Test Item Value Reference Range Interpretation Comme nts NA (test code = 8680809481) 137 mmol/L 135-145 K (test code = 0440346031) 4.0 mmol/L 3.5-5 CL (test code = 7617737651) 106 mmol/L 98-108 CO2 TOTAL (test code = 9061896956) 25 mmol/L 23-31 AGAP (test code = 9992146390) 2-16 BUN (test code = 6991053387) 9 mg/dL 7-23 GLUCOSE (test code = 2458706905) 95 mg/dL 70-110 CREATININE (test code = 6087739191) 0.53 mg/dL 0.5-1.04 CALCIUM (test code = 8150339754) 9.0 mg/dL 8.6-10.6 eGFR Calculation (Non-) (test code = 4086836244) mL/min/1.73m2 eGFR Calculation () (test code = 7241099750) mL/min/1.73m2 DARWIN (test code = DARWIN) Association [...] or urine or abnormalities in imaging tests). [facility] HospitalHep[facility] Function Panel (ALB, T.PRO, BILI T, BU/BC, ALT, AST, ALK PHOS)2020-05-15 06:35:00* Test Item Value Reference Range Interpretation Comme nts TOTAL BILI (test code = 6033846023) 0.4 mg/dL 0.1-1.1 BILI UNCON (test code = 5433598270) 0.2 mg/dL 0.1-1.1 BILI CONJ (test code = 2554160826) 0.0 mg/dL 0-0.3 T PROTEIN (test code = 9048574280) 6.3 g/dL 6.3-8.2 ALBUMIN (test code = 3884593977) 3.8 g/dL 3.5-5 ALK PHOS (test code = 1440616233) 117 U/L 34-122 ALTv (test code = 1742-6) 179 U/L 5-35 H AST(SGOT) (test code = 8815567357) 194 U/L 13-40 H Lab Interpretation (test cod e = 92177-0) Abnormal [facility] HospitalLipase Rigip9460-25-17 06:35:00* Test Item Value Reference Range Interpretation Comme [facility] LIPASE (test code = 2007440019) 92 U/L 0-220 Lab Interpretation (test cod e = 22532-0) Normal [facility] HospitalaPTT2020-11-08 06:22:00* Test Item Value Reference Range Interpretation Comme nts APTT Patient (test code = 3173-2) See_Comment [Automated message] The system which generated this result transmitted reference range: 23 - 38 Seconds. The reference range was not used to interpret this result as normal/abnormal. DARWIN (test code = DARWIN) The [facility] patient population mean normal value for aPTT is 30 seconds. Lab Interpretation (test code = 04587-2) Normal [facility] HospitalUrinalysis2020-11-08 06:21:00* Test Item Value Reference Range Interpretation Comme nts APPEARANCE (test code = 9399193670) Clear Clear COLOR (test code = 1584129503) Yellow Yellow PH (test code = 3019352150) 4.8-8.0 SP GRAVITY (test code = 7116367467) 1.003-1.030 GLU U QUAL (test code = 9284985936) Normal Normal BLOOD (test code = 1301125119) Negative Negative KETONES (test code = 1336375361) Negative Negative PROTEIN (test code = 2887-8) Negative Negative UROBILIN (test code = 5765209854) Normal Normal BILIRUBIN (test code = 4582047857) Negative Negative NITRITE (test code = 7378858169) Negative Negative LEUK MARC (test code = 2674833020) Negative Negative RBC/HPF (test code = 4190979373) See_Comment [Automated messa ge] The system which generated this result transmitted reference range: 0 - 3 HPF. The reference range was not used to interpret this result as normal/abnormal. WBC/HPF (test code = 2608326138) <1 See_Comment [Automated [employer]] The system which generated this result transmitted reference range: 0 - 5 HPF. The reference range was not used to interpret this result as normal/abnormal. BACTERIA (test code = 5737132719) Negative Negative MUCOUS (test code = 0658950470) Slight Negative LPF A SQ EPITH (test code = 6158879465) HPF Lab Interpretation (test code = 37815-4) Abnormal [facility] HospitalProthrombin Time (PT) / [id number] 06:20:00 * Test Item Value Reference Range Interpretation Comme nts PROTIME PATIENT (test code = 5964-2) See_Comment [Automated [employer]] The system which generated this result transmitted reference range: 12.0 - 14.7 Seconds. The reference range was not used to interpret this result as normal/abnormal. INR (test code = 6301-6) Normal INR <1.1; Warfarin Therapeutic range 2.0 to 3.0 or 2.5 to 3.5, depending upon the indications. Lab Interpretation (test code = 52900-9) Normal [facility] HospitalAD / [facility] [id number] 06:19:00* Test Item Value Reference Range Interpretation Comme nts BENZO U (test code = 7654607777) Presumptive Positive Negative A ROSA U (test code = 8623335123) Negative Negative AMPHET (test code = 2455745168) Negative Negative THC (test code = 6859628624) Negative Negative METHADONE (test code = 7829175171) Negative Negative Meth U (test code = 9693555164) Negative Negative OPIATES (test code = 1283391284) Negative Negative Cocaine Metabolite (test code = 7100923599) Negative Negative PROPOXY (test code = 9174037831) Negative Negative Tric U (test code = 0996577811) Negative Negative PCP (test code = 4830366770) Negative Negative OXYCOD (test code = 1244222726) Negative Negative DARWIN (test code = DARWIN) [...] legal testing). Lab Interpretation (test code = 63715-5) Abnormal [facility] with Rqnwlrwfraly9000-51-17 06:07:00* Test Item Value Reference Range Interpretation Comme nts WBC (test code = 6690-2) See_Comment [Automated [employer]] The system which generated this result transmitted reference range: 4.30 - 11.10 10*3/?L. The reference range was not used to interpret this result as normal/abnormal. RBC (test code = 789-8) See_Comment [Automated [employer]] The system which generated this result transmitted [...] 34.3 g/dL 31.6-35.1 RDW-SD (test code = 20764-6) 43.4 fL 39-49.9 RDW-CV (test code = 788-0) 13.7 % 12-15.5 PLT (test code = 777-3) See_Comment [Automated [employer]] The system which generated this result transmitted reference range: 166 - 358 10*3/?L. The reference range was not used to interpret this result as normal/abnormal. MPV (test code = 46392-8) 9.7 fL 9.5-12.9 NRBC/100 WBC (test code = 9453127743) See_Comment [Automated me ssage] The system which generated this result transmitted reference range: 0.0 - 10.0 /100 WBCs. The reference range was not used to interpret this result as normal/abnormal. NRBC x10^3 (test code = 7165158662) <0.01 See_Comment [Automated messa ge] The system which generated this result transmitted reference range: 10*3/?L. The reference range was not used to interpret this result as normal/abnormal. GRAN MAT (NEUT) % (test code = 770-8) 50.6 % IMM GRAN % (test code = 6357138846) 0.20 % LYMPH % (test code = 736-9) 42.1 % MONO % (test code = 5905-5) 5.5 % EOS % (test code = 713-8) 1.2 % BASO % (test code = 706-2) 0.4 % GRAN MAT x10^3(ANC) (test code = 3571685538) 4.31 10*3/uL 1.88-7.09 IMM GRAN x10^3 (test code = 4852273036) <0.03 0-0.06 LYMPH x10^3 (test code = 731-0) 3.58 10*3/uL 1.32-3.29 H MONO x10^3 (test code = 742-7) 0.47 10*3/uL 0.33-0.92 EOS x10^3 (test code = 711-2) 0.10 10*3/uL 0.03-0.39 BASO x10^3 (test code = 704-7) 0.03 10*3/uL 0.01-0.07 Lab Interpretation (test code = 77992-3) Abnormal [facility] Xhfk2744-59-89 05:53:00* Test Item Value Reference Range Interpretation Comme nts POCT PREG (test code = 1605) Negative On board controls acceptable with C Line (test code = 3574) Present POCT PREG LOT # (test code = 3575) [facility] [id number] POCT PREG TEST DATE ( test code = 3576) 10/05/2021 Lab Interpretation (test cod e = 99387-6) Normal [facility] History and Physical Notes Date/Time Note [...] Intake/Output Summary (Last 24 hours) at 02/16/2023 0119 Last data filed at 02/15/20232008 Gross per [...] the ACR Incidental Findings Committee;Journal of the [employer] [employer] Volume 7, Issue 10, Pages 513-147, April 2010). CHEST 1 VW Result Date: [...] process is identified in the chest. RL: 4084 END OF REPORT Assessment and plan: Principal [...] Flako Mercado MD 02/16/2023 IM-INTERNAL MEDICINE STAFF [facility] - [facility] Notes Date/Time Note Provider Source 2024-02-06 11:11:13 Chief Complaint Patient presents with Shoulder Pain Left shoulder pain with limited range of motion x 6 months, takes OTC tylenol for the pain as needed but pain is getting worse. 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 Not working currently [facility] 2023-12-13 09:19:27 Chief Complaint Patient presents with Hospital F/U [facility] follow up with admission on 12/04/2023 for chest pains. She had a stent placed by Dr. Arthur. Jennifer Del Castillo MA II Jennifer Del Castillo MA, II [facility] 2023-12-03 10:49:31 Chief Complaint Patient presents with Anxiety Follow up on anxiety/depression. She states that it has gotten worse since last visit. She had an appointment with January this morning and it was canceled due to internet outage. Jennifer Del Castillo MA II Jennifer Del Castillo MA, II [facility] 2023-10-29 13:21:02 Chief Complaint Patient presents with [facility] Patient [facility] told her she needed to go to a different doctor because they could not give her anything else Marbella Oh LVN [facility] 2023-10-11 00:41:45 Pt given printed and verbal [...] in no apparent distress. Becky Rios RN [facility] 2023-10-10 21:25:46 Pt arrived ambulatory but states feeling like she is going to pass out, Pt placed in ED wheelchair. Pt c/o " I have pain in my back on the left side, it mark when I pee, Im nauseous, I feel like Im going to pass out and I have been crapping on myself." Shaneka Atkinson RN [facility] 2023-07-01 22:58:41 Pt discharged with diagnosis of RUQ abd pain and chronic abd pain. Printed and verbal instructions reviewed with and given to pt. Prescriptions given x 2. Pt verbalized understanding of teaching, medications, and recommended follow-up. Denies questions or concerns at this time. Pt ambulatory at discharge. Appears in no apparent distress. No ataxia noted. STICS TEAM LEADER Adeline Floyd RN [facility] 2023-07-01 19:46:03 Pt states sharp pain to the RLQ that started today around noon, pt denies any urinary symptoms, vomiting X 2 STICS TEAM LEADER Razia Yost RN [facility] 2023-03-10 00:14:00 Formatting of this n [...] noted upon discharge Pt ambulated to the lobby with steady gait Razia Yost RN [facility] 2023-03-09 23:06:10 Formatting of this n ote might be different from the original. Received report from Evy RAMIREZ, assuming care. Brandy Lou RN [facility] 2023-03-09 22:38:16 Formatting of this n ote might be different from the original. Ordered CT scan done. Patient states LQ abdominal pain now 01/14. Guanaco Caceres RN [facility] 2023-03-09 22:00:00 Formatting of this n ote might be different from the original. POCT test negative. Patient states RLQ abdominal pain improved briefly with IV Morphine administration, then returned at 03/17. Dr Richards informed, and patient medicated as ordered with Fentanyl 75 mcg slow IVP. T [facility] 2023-03-09 21:00:00 Formatting of this n ote might be different from the original. Medicated as per order with Zofran 4 mg slow IVP and Morphine 4 mg slow IVP for RLQ abdominal pain 03/17. T [facility] 2023-03-09 20:17:52 Formatting of this n ote might be different from the original. Pt arrived ambulatory with complaints of RLQ abd pain since yesterday. Pt reports N/V/D. Last took Tylenol at 3pm. Denies dysuria but reports frequency. Hx: Anxiety, Depression, PTSD, Pancreatitis Aline Lou RN [facility] 2023-03-02 01:30:22 Formatting of this n ote might be different from the original. Discharged home ambulatory. Home instructions given. T John Ventura RN [facility] 2023-03-01 19:32:44 Formatting of this n ote might be different from the original. Pt CO of N/V, left lower back pain, painful urination and diarrhea since yesterday, states she was admitted last week for pancreatitis. Pt already promethazine tablets today with no relief. Jean Carlos Alegria RN [facility] 2023-03-01 19:22:00 Formatting of this n ote is different from the original. [facility] Emergency Department Note Patient Name: Charity Roca Date of : 1980 43 year old female Treatment Room: NY3/NY3 Primary Care Physician: Carlos Solano Patient Escorted by: Family [5] Mode of Arrival: Personal means [1] EMS Treatment Prior to ED Arrival: TAR MAN treatment: None Travel and Exposure Screening: Symptoms [...] History provided by: Patient and medical records motor vehicle inspector used: No Abdominal Pain Pain location: Generalized [...] Endocrine negative Physical Exam: ED Triage Vitals [03/01/23 193] Weight 99.8 kg (220 lb) Actual or [...] adenoma on noncontrast imaging. RL: 460 AFC: 82215 Lab Results: Lab Results CBC WITH DIFF [...] POCT PREG TEST DATE COMP. METABOLIC PANEL (05422) NA 139 135 - 145 mmol/L K [...] CONTRAST CBC WITH DIFF COMP. METABOLIC PANEL (74864) LIPASE URINALYSIS POCT TEST Orders Placed This [...] Electronically signed by: Olivia Garcia MD 03/02/23 0122 [facility] 2023-02-18 02:22:03 Formatting of this n [...] from ED, leaving in no apparent distress, Linda Ayala RN [facility] 2023-02-17 22:53:36 Formatting of this n [...] be from her anxiety. Aline Lou RN [facility] 2023-02-17 15:59:15 Formatting of this n [...] Goal: Effective communication Outcome: Adequate for discharge Beata Lamar RN [facility] 2023-02-17 00:21:19 Formatting of this n [...] Goal: Effective communication Outcome: Progressing as expected [facility] 2023-02-16 16:55:55 Formatting of this n ote [...] Effective communication Outcome: Progressing as expected T [facility] 2023-02-16 03:35:03 Formatting of this n [...] Effective communication Outcome: Progressing as expected T [facility] 2023-02-15 19:41:18 Formatting of this n ote might be different from the original. Nurse Report Report given to JAMES Gatica. Chief complaint, assessment findings, infusion verify and orders reviewed. Plan of care discussed with both nurses. Stacie Man RN Stacie Man RN [facility] 2023-02-15 13:40:01 Formatting of this n [...] amb without assistance. Appears in no distress. [facility] 2023-02-15 13:23:00 Associated Order(s): EKG-12 Lead ROUTINE ONCE Pre-Procedure Diagnose(s): Chest pain, unspecified type Post-Procedure Diagnose(s): Acute pancreatitis, unspecified complication status, unspecified pancreatitis type [facility] Emergency Department Note Patient Name: Charity Roca Date of : 1980 42 year old female Treatment Room: [place] [address] Primary Care Physician: Carlos Solano Patient Escorted by: Self [9] Mode of Arrival: Personal means [1] EMS Treatment Prior to ED Arrival: TAR MAN treatment: None Chief Complaint: Chief Complaint Patient [...] the ACR Incidental Findings Committee;Journal of the [employer] [employer] Volume 7, Issue 10, Pages 472-682, April 2010). CHEST 1 VW Final Result [...] process is identified in the chest. RL: 6634 END OF REPORT Lab Results: reviewed by [...] 0.01 - 0.07 10*3/uL COMP. METABOLIC PANEL (97931) - Abnormal NA 138 135 - 145 [...] INTERPRETATION CBC WITH DIFF COMP. METABOLIC PANEL (54341) LIPASE Orders Placed This Encounter Medications ibuprofen [...] Event User Comments 02/15/231344 Medical Screening Begins L[facility] WISE -- 02/15/231344 First Provider Evaluation L[facility] -- No notes of EC Admission [...] ED Physician in the absence of a math instructor: yes Previous ECG: Previous ECG: Unavailable Interpretation: [...] this a planned re-admission?: No Treatment Team: [facility] [[id number]] Is this patient COVID positive or a patient under investigation (PUI)?: No Electronically signed by: Leeanne Wise NP 02/15/231910 Associated attestation - Bushra Rios DO - 02/16/2023 7:30 AM CDT I was personally available for consultation in the Emergency Department during this encounter and patient evaluation by Leeanne Wise. [facility]
[2024-03-02] MEDS ORDERED: NA CHLORIDE 0.9% 1,000 ML ONE ×2 (00:16→04:28)
[2024-03-02] MEDS ORDERED: MORPHINE 4 MG/ML SYR ONE ×2 (00:16→01:46)
[2024-03-02] MEDS ORDERED: ONDANSETRON 4 MG/2 ML VIAL ONE ×4 (00:16→13:09)
[2024-03-02 01:05] LABS: Absolute Eosinophils 0.2 K/uL (0-0.5); Absolute Lymphocytes (CBC) 2.8 K/uL (0.7-4.9); Absolute Monocytes 0.5 K/uL (0.1-1.3); Absolute Neutrophil 7.7 K/uL (1.8-8.0); Basophils % 0.4 % (0-1.3); Eosinophils % 1.5 % (0-4.4); Hematocrit 37.9 % (36.0-45.0); MCH 25.6 pg (27.0-35.0); MCHC 31.7 g/dL (32.0-36.0); MCV 80.8 fL (80-100); MPV 7.8 fL (7.6-11.3); Monocytes % 4.9 % (3.3-12.3); Neutrophils % 68.2 % (41.7-73.7); Platelets 334 thou/uL (152-406); RBC Red Blood Cell Count 4.69 M/uL (3.86-4.86); Red Cell Distribution Width 17.7 % (12.1-15.2)
[2024-03-02 01:23] LABS: ALT/SGPT 23 U/L (13-56); AST/SGOT 11 U/L (15-37); Albumin/Globulin Ratio 0.8 (1.1-1.8); Alkaline Phosphatase 71 U/L (45-117); Anion Gap 9.8 mEq/L (5.0-15.0); BUN Blood Urea Nitrogen 12 mg/dL (7-18); Bicarbonate 25 mEq/L (21-32); Globulin 3.6 g/dL (2.3-3.5); Glomerular Filtration Rate 97 ml/min (=/>90); Glucose Level 98 mg/dL (74-106); Lipase 314 U/L (13-75); Potassium 3.8 mEq/L (3.5-5.1); Protein, Total 6.6 g/dL (6.4-8.2); Sodium Level 141 mEq/L (136-145)
[2024-03-02 01:24] LABS: Bilirubin Total < 0.2 mg/dL (0.2-1.0); Troponin High Sensitivity < 3.0 pg/mL (<58.9)
[2024-03-02 01:36] LABS: Calcium Oxalate Crystals- Ur Few /HPF (None Seen); Specific Gravity 1.021 (1.005-1.030); Urine Bacteria <20 /HPF (<20); Urine Bilirubin NEGATIVE (Negative); Urine Blood Negative (Negative); Urine Clarity Extremely Turbid (Clear); Urine Color Light-Yellow (Yellow); Urine Culture Reflex Order REFLEXED; Urine Glucose NEGATIVE (Negative); Urine Ketones NEGATIVE (Negative); Urine Microscopic Reflex YN ORDER UMIC; Urine Mucus 4+ /HPF (None Seen); Urine Nitrite NEGATIVE (Negative); Urine Protein TRACE (Negative); Urine RBC <5 /HPF (None Seen); Urine Urobilinogen Normal (Normal); Urine pH 5.5 (5.0-7.0)
--- NOTE | 2024-03-02 02:54 | EDPHYS ---
Physician Documentation [facility] Name: Charity Hanks Age: 44 yrs Sex: Female : 1980 Arrival Date: 03/01/2024 Time: 22:02 Bed 16 Private MD: ED Physician Joe Pena HPI: 03/02 03:02 This 44 yrs old Female presents to ER via EMS with complaints of Abdominal Pain. rt 03:02 Patient with history of chronic pancreatitis presents to the ED with epigastric pain, rt nausea, vomiting starting today. Reports mild chest tightness. Denies other acute complaints at this time, symptoms are moderate in severity, no other aggravating elevating factors.. Historical: - Allergies: 03/01 23:18 No Known Allergies; vc1 - PMHx: 23:18 Anxiety; depressive disorder; Myocardial infarction; PTSD; vc1 - PSHx: 23:18 cardiac stent; vc1 - Immunization history:: Client reports receiving the 2nd dose of the Covid vaccine. - Infectious Disease History:: Denies. - Social history:: Smoking status: Patient reports the use of cigarette tobacco products, 5 cigs/day. - Family history:: not pertinent. ROS: 03/02 03:02 Constitutional: Negative for fever, chills, and weight loss, Respiratory: Negative for rt shortness of breath, cough, wheezing, and pleuritic chest pain, MS/Extremity: Negative for injury and deformity, Skin: Negative for injury, rash, and discoloration, Neuro: Negative for headache, weakness, numbness, tingling, and seizure, Psych: Negative for depression, anxiety, suicide ideation, homicidal ideation, and hallucinations, Cardiovascular: Positive for chest pain, Negative for edema, Abdomen/GI: Positive for abdominal pain, nausea, vomiting, and diarrhea, Exam: 03:02 Constitutional: This is a well developed, well nourished patient who is awake, alert, rt and in no acute distress. Head/Face: Normocephalic, atraumatic. Chest/axilla: Normal chest wall appearance and motion. Nontender with no deformity. No lesions are appreciated. Cardiovascular: Regular rate and rhythm with a normal S1 and S2. No gallops, murmurs, or rubs. Normal PMI, no JVD. No pulse deficits. Respiratory: Lungs have equal breath sounds bilaterally, clear to auscultation and percussion. No rales, rhonchi or wheezes noted. No increased work of breathing, no retractions or nasal flaring. Skin: Warm, dry with normal turgor. Normal color with no rashes, no lesions, and no evidence of cellulitis. MS/ Extremity: Pulses equal, no cyanosis. Neurovascular intact. Full, normal range of motion. Neuro: Awake and alert, GCS 15, oriented to person, place, time, and situation. Cranial nerves II-XII grossly intact. Motor strength 5/5 in all extremities. Sensory grossly intact. Cerebellar exam normal. Normal gait. 03:02 ECG was reviewed by the Attending Physician. 03:02 Abdomen/GI: Tenderness to the epigastrium with mild guarding, no rebound, distention, Vital Signs: 03/01 23:16 BP 149 / 116; Pulse 83; Resp 18; Temp 97; Pulse Ox 100% ; Weight 104.33 kg; Height 5 vc1 ft. 2 in. ; Pain 10/; 03/02 00:55 BP 110 / 68; Pulse 67; Resp 17 S; Pulse Ox 97% on R/A; ha1 01:20 BP 135 / 94; Pulse 70; Resp 17 S; Pulse Ox 97% on R/A; ha1 02:20 BP 161 / 104; Pulse 80; Resp 17 S; Pulse Ox 100% on R/A; ha1 03/01 23:16 Body Mass Index 42.07 (104.33 kg, 157.48 cm) vc1 03/01 23:16 Pain Scale: Adult vc1 MDM: 03/01 23:20 Patient medically screened. rt 03/02 03:02 Differential Diagnosis Pancreatitis, bowel obstruction, gastritis. Data reviewed: vital rt signs, nurses notes, lab test result(s), EKG, radiologic studies. Consideration of Admission/Observation Patient was admitted/placed on observation. Management of patient was discussed with the following: Hospitalist: Agrees to admit. I considered the following discharge prescriptions or medication management in the emergency department Medications were administered in the Emergency Department. See MAR. Independent interpretation of the following test(s) in the Emergency Department CT Scan: My interpretation is No bowel obstruction syndrome interpretation of CT scan images. Care significantly affected by the following chronic conditions: Chronic pancreatitis. Counseling: I had a detailed discussion with the patient and/or guardian regarding the historical points, exam findings, and any diagnostic results supporting the discharge/admit diagnosis, lab results, radiology results, the need for further work-up and treatment in the hospital. Response to treatment: the patient's symptoms have markedly improved after treatment. 03/01 23:32 Order name: CBC with Diff; Complete Time: 01:36 rt 03/01 23:32 Order name: CMP; Complete Time: 01:36 rt 03/01 23:32 Order name: Lipase; Complete Time: 01:36 rt 03/01 23:32 Order name: Test, Urine; Complete Time: 02:38 rt 03/01 23:32 Order name: Urinalysis w/ reflexes; Complete Time: 02:38 rt 03/01 23:32 Order name: Troponin High Sensitivity; Complete Time: 01:36 rt 03/02 01:41 Order name: Urine Culture EDMS 03/02 03:36 Order name: Urinalysis w/ reflexes EDMS 03/02 03:36 Order name: CBC with Automated Diff EDMS 03/02 03:36 Order name: CBC with Automated Diff EDMS 03/02 03:36 Order name: Comprehensive Metabolic Panel EDMS 03/02 03:36 Order name: Comprehensive Metabolic Panel EDMS 03/02 07:55 Order name: Lipid Profile EDMS 03/01 23:32 Order name: CT Abd/Pelvis - IV Contrast Only rt 03/01 23:32 Order name: IV Saline Lock; Complete Time: 00:34 rt 03/01 23:32 Order name: Labs collected and sent; Complete Time: 00:34 rt 03/01 23:32 Order name: EKG - Nurse/Tech; Complete Time: 00:50 rt EC:02 Rate is 70 beats/min. Rhythm is regular, Normal Sinus Rhythm with No ectopy. QRS [place] rt is Normal. GA interval is normal. QRS interval is normal. QT interval is normal. No Q waves. T waves are Normal. No ST changes noted. Interpreted by me. Administered Medications: 00:30 Drug: morphine IVP or IV 4 mg IVP once over 4 mins Route: IVP; Infused Over: 4 mins; ha1 Site: left forearm; 00:55 Follow up: Response: No adverse reaction; Marked relief of symptoms; Pain is decreased; ha1 RASS: Alert and Calm (0) 00:32 Drug: Ondansetron IVP 4 mg IVP once; over 2 minutes Route: IVP; Site: left forearm; ha1 00:55 Follow up: Response: No adverse reaction; Marked relief of symptoms ha1 00:34 Drug: NS 0.9% IV 1000 ml IV at 1 bolus Per protocol; 1000 mL bolus Route: IV; Rate: 1 ha1 bolus; Site: left forearm; 02:00 Follow up: Response: No adverse reaction; IV Status: Completed infusion; IV Intake: ha1 1000ml 02:00 Drug: morphine IVP or IV 4 mg IVP once over 4 mins Route: IVP; Infused Over: 4 mins; ha1 Site: left forearm; 02:20 Follow up: Response: No adverse reaction; Marked relief of symptoms; Pain is decreased; ha1 RASS: Alert and Calm (0) Disposition Summary: 03/02/24 02:54 Hospitalization Ordered Notes: Hospitalization Status: Inpatient Admission rt Provider: Kurt Whitney rt Condition: Stable rt Problem: new rt Symptoms: have improved rt Bed/Room Type: Standard rt Location: Telemetry/MedSurg (Inpatient)(03/02/24 13:48) bd Room Assignment: 429(03/02/24 13:48) bd Diagnosis - Acute on chronic pancreatitis rt Forms: - Medication Reconciliation Form rt - SBAR form rt - Leadership Thank You Letter rt Signatures: Dispatcher [employer] EDNicole Block Cindy RN RN Heide Power RN RN vc1 Nelly Morales RN RN ha1 Joe Pena MD MD rt Corrections: (The following items were deleted from the chart) 03/01 23:33 23:32 Abdomen Pelvis W Con+CT.RAD.BRZ ordered. EDWY EDWY 03/02 03:21 02:54 Telemetry/MedSurg (Inpatient) rt cg 03:21 02:54 rt cg 13:48 03:21 BR ER HOLD cg bd 13:48 03:21 ERHOLD- cg bd
--- NOTE | 2024-03-02 02:54 | ER ---
Nurse's Notes [facility] Name: Charity Hanks Age: 44 yrs Sex: Female : 1980 Arrival Date: 03/01/2024 Time: 22:02 Bed 16 Private MD: Diagnosis: Acute on chronic pancreatitis Presentation: 03/01 22:02 Chief complaint: EMS states: Called for abdominal pain. Initial Sepsis Screen: Does the vc1 patient meet any 2 criteria? No. Patient's initial sepsis screen is negative. Does the patient have a suspected source of infection? No. Patient's initial sepsis screen is negative. Risk Assessment: Do you want to hurt yourself or someone else? Patient reports no desire to harm self or others. Onset of symptoms was March 01, 2024. 22:02 Acuity: CARLOS 3 vc1 23:16 Chief complaint: Patient states: had pancreatitis before now having lower abdominal vc1 pain that starts on the left and radiates to my back shoulder blade. Coronavirus screen: Client denies travel out of the [place] in the last 14 days. At this time, the client does not indicate any symptoms associated with coronavirus-19. Ebola Screen: Patient negative for fever greater than or equal to 101.5 degrees Fahrenheit, and additional compatible Ebola Virus Disease symptoms Patient denies exposure to infectious person. Patient denies travel to an Ebola-affected area in the 21 days before illness onset. No symptoms or risks identified at this time. 23:16 Method Of Arrival: EMS[facility] vc1 Triage Assessment: 23:19 General: Appears in no apparent distress. uncomfortable, Behavior is calm, cooperative, vc1 appropriate for age. Pain: Complains of pain in left lower quadrant Pain radiates to left lateral posterior chest and left upper quadrant Pain currently is 10 out of 10 on a pain scale. GI: Reports lower abdominal pain. Historical: - Allergies: 23:18 No Known Allergies; vc1 - PMHx: 23:18 Anxiety; depressive disorder; Myocardial infarction; PTSD; vc1 - PSHx: 23:18 cardiac stent; vc1 - Immunization history:: Client reports receiving the 2nd dose of the Covid vaccine. - Infectious Disease History:: Denies. - Social history:: Smoking status: Patient reports the use of cigarette tobacco products, 5 cigs/day. - Family history:: not pertinent. Screenin:14 [facility] ED Fall Risk Assessment (Adult) History of falling in the last 3 months, ha1 including since admission No falls in past 3 months (0 pts) Confusion or Disorientation No (0 pts) Intoxicated or Sedated No (0 pts) Impaired Gait No (0 pts) Mobility Assist Device Used No (0 pt) Altered Elimination No (0 pt) Score/Fall Risk Level 0 - 2 = Low Risk Oriented to surroundings, Maintained a safe environment, Hourly rounding (assess needs \T\ fall precautionary measures) done. 03/02 00:40 Abuse screen: Denies threats or abuse. Denies injuries from another. Nutritional ha1 screening: No deficits noted. Tuberculosis screening: No symptoms or risk factors identified. Assessment: 03/01 23:14 General: Appears comfortable, Behavior is calm, cooperative. Pain: Complains of pain in ha1 abdomen Pain does not radiate. Pain currently is 8 out of 10 on a pain scale. Quality of pain is described as aching, crampy, Pain began 1 day ago. Neuro: Level of Consciousness is awake, alert, obeys commands, Oriented to person, place, time, situation. Cardiovascular: Heart tones S1 S2 present Capillary refill < 3 seconds Patient's skin is warm and dry. Respiratory: Airway is patent Respiratory effort is even, unlabored, Respiratory pattern is regular, symmetrical. GI: Abdomen is round non-distended, obese, Bowel sounds present X 4 quads. Reports lower abdominal pain, upper abdominal pain, cramping, nausea, vomiting. Derm: Skin is pink, warm \T\ dry. Musculoskeletal: Circulation, motion, and sensation intact. Range of motion: intact in all extremities. 03/02 00:27 Reassessment: Patient and/or family updated on plan of care and expected duration. Pain ha1 level reassessed. Patient is alert, oriented x 3, equal unlabored respirations, skin warm/dry/pink. 01:20 Reassessment: Patient and/or family updated on plan of care and expected duration. Pain ha1 level reassessed. Patient is alert, oriented x 3, equal unlabored respirations, skin warm/dry/pink. 01:20 Reassessment: requesting pain medication. Notified Dr. Pena pain 04/16. ha1 02:20 Reassessment: Patient and/or family updated on plan of care and expected duration. Pain ha1 level reassessed. Patient is alert, oriented x 3, equal unlabored respirations, skin warm/dry/pink. pain 4/10. Vital Signs: 03/01 23:16 BP 149 / 116; Pulse 83; Resp 18; Temp 97; Pulse Ox 100% ; Weight 104.33 kg; Height 5 vc1 ft. 2 in. ; Pain 10/10; 03/02 00:55 BP 110 / 68; Pulse 67; Resp 17 S; Pulse Ox 97% on R/A; ha1 01:20 BP 135 / 94; Pulse 70; Resp 17 S; Pulse Ox 97% on R/A; ha1 02:20 BP 161 / 104; Pulse 80; Resp 17 S; Pulse Ox 100% on R/A; ha1 03/01 23:16 Body Mass Index 42.07 (104.33 kg, 157.48 cm) vc1 03/01 23:16 Pain Scale: Adult vc1 ED Course: 03/01 22:22 Patient arrived in ED. vc1 23:18 Triage completed. vc1 23:18 Arm band placed on right wrist. vc1 23:18 Patient has correct armband on for positive identification. Bed in low position. Call ha1 light in reach. Side rails up X 1. 23:19 Joe Pena MD is Attending Physician. rt 23:39 Nelly Morales, JAMES is Primary Nurse. ha1 03/02 00:25 Inserted saline lock: 20 gauge in left forearm, using aseptic technique. Blood ha1 collected. Flushed with 10 mL NS Accessed peripheral vein via ultrasound, utilizing dynamic ultrasound technique Clean \T\ dry. Dressing intact. Good blood return. Flushes easily. 00:51 EKG done, by ED staff, reviewed by Joe Pena MD. ty 01:[address] via stretcher. pc2 01:58 CT Abd/Pelvis - IV Contrast Only In Process Unspecified. EDMS 02:00 Provided Education on: need for admit . ha1 02:00 No provider procedures requiring assistance completed. ha1 02:00 Patient admitted, IV remains in place. ha1 02:53 Kurt Whitney MD is Hospitalizing Provider. rt 12:19 219 CM met with patient at bedside in the ED exam room. Patient identified by name and ane . Demographic confirmed. states she lives with her father in 1st floor apartment. Patient states prior to admission, he performs ADLs independently and without physical limitations. No MPOA on place and does not wish to complete one at this time. No HH, DME, home oxygen or other medical services at this time. Patient states her preferred plan is to discharge home upon discharge. She states her father can transport her home when she is discharged. CM team will continue to follow and coordinate care. Administered Medications: 00:30 Drug: morphine IVP or IV 4 mg IVP once over 4 mins Route: IVP; Infused Over: 4 mins; ha1 Site: left forearm; 00:55 Follow up: Response: No adverse reaction; Marked relief of symptoms; Pain is decreased; ha1 RASS: Alert and Calm (0) 00:32 Drug: Ondansetron IVP 4 mg IVP once; over 2 minutes Route: IVP; Site: left forearm; ha1 00:55 Follow up: Response: No adverse reaction; Marked relief of symptoms ha1 00:34 Drug: NS 0.9% IV 1000 ml IV at 1 bolus Per protocol; 1000 mL bolus Route: IV; Rate: 1 ha1 bolus; Site: left forearm; 02:00 Follow up: Response: No adverse reaction; IV Status: Completed infusion; IV Intake: ha1 1000ml 02:00 Drug: morphine IVP or IV 4 mg IVP once over 4 mins Route: IVP; Infused Over: 4 mins; ha1 Site: left forearm; 02:20 Follow up: Response: No adverse reaction; Marked relief of symptoms; Pain is decreased; ha1 RASS: Alert and Calm (0) Medication: 02:00 VIS not applicable for this client. ha1 Intake: 02:00 IV: 1000ml; Total: 1000ml. ha1 Outcome: 02:00 Admitted to ER Hold. Please see [facility] for further documentation. ha1 02:00 Condition: stable 02:00 Instructed on the need for admit, Demonstrated understanding of instructions, 02:54 Decision to Hospitalize by Provider. rt 15:07 Patient left the ED. ph Signatures: Dispatcher [employer] EDKY America Jaquez RN RN ph Heide Jeffrey RN RN 1 Nelly Morales RN RN ha1 Joe Pena MD MD rt Ab Baltazar Pam, RN RN Keren Arguello RN RN ane Corrections: (The following items were deleted from the chart) 03:14 02:05 Reassessment: Patient and/or family updated on plan of care and expected ha1 duration. Pain level reassessed. Patient is alert, oriented x 3, equal unlabored respirations, skin warm/dry/pink. pain 10/15 ha1 03:15 01:00 BP 161 / 104; Pulse 80bpm; Resp 17bpm; Spontaneous; Pulse Ox 100% RA; ha1 ha1 03:16 00:30 BP 110 / 68; Pulse 67bpm; Resp 17bpm; Spontaneous; Pulse Ox 97% RA; ha1 ha1
--- NOTE | 2024-03-02 03:29 | P.HP ---
Certification for Inpatient Patient admitted to: Inpatient With expected LOS: >2 Midnights Practitioner: I am a practitioner with admitting privileges, knowledge of patient current condition, hospital course, and medical plan of care. Services: Services provided to patient in accordance with Admission requirements found in Title 42 Section 412.3 of the Code of Federal Regulations Patient History Date of Service: 03/02/24 Reason for admission: Abdominal pain History of Present Illness: 44-year-old female with a past medical history of Anxiety, depressive disorder,Myocardial infarction, PTSD brought to ER with abdominal pain. Patient has a history of pancreatitis previously, the pain is similar to the previous episode. Denies any fever or chills. No nausea vomiting or diarrhea . Pain is epigastric region radiating to back. Sharp, 9 out of 10 in severity. Denies any dysuria. Patient was seen in the ER and was admitted for further management . Allergies No Known Allergies Allergy (Unverified 03/25/22 00:43) Home medications list reviewed: Yes Home Medications: Sertraline HCl 150 mg PO DAILY 12/05/23 Suvorexant [Belsomra] 20 mg PO BEDTIME 12/05/23 hydrOXYzine pamoate [Hydroxyzine Pamoate] 1 tab PO BEDTIME PRN PRN 12/05/23 Aspirin [Adult Aspirin Regimen] 81 mg PO DAILY 30 Days #30 tab 12/06/23 Atorvastatin Calcium 40 mg PO DAILY 30 Days #30 tab 12/06/23 Clopidogrel Bisulfate [Plavix*] 75 mg PO DAILY 30 Days #30 tab 12/06/23 Pantoprazole Sodium [Protonix] 40 mg PO DAILY 30 Days #30 tab 12/16/23 ARIPiprazole [Abilify*] 1 tab PO DAILY 01/11/24 Isosorbide Mononitrate [Isosorbide Mononitrate ER] 60 mg PO DAILY 30 Days #30 tab 01/11/24 LORazepam [Ativan*] 1 mg PO DAILY tab 02/15/24 Rosuvastatin [Crestor*] 40 mg PO BEDTIME tab 02/15/24 Sertraline [Zoloft*] 100 mg PO DAILY tab 02/15/24 Tramadol HCl 100 mg PO Q8H PRN 6 Days #15 tab 02/15/24 - Past Medical/Surgical History Diabetic: No Past Medical History: Reviewed- Non-Contributory -: Anxiety/depression -: Bipolar -: PTSD -: HLD -: SD -: Angina -: HTN Past Surgical History: Reviewed- Non-Contributory -: Cholecystectomy -: tonsillectomy -: cardiac stent x1 Psychosocial/ Personal History: Unemployed, lives at home with her father and 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 - Family History Mother -: Heart disease Father -: Heart disease Brother Notes: bipolar. anxiety. depression - Social History Smoking Status: Never smoker Alcohol use: No CD- Drugs: No Caffeine use: Yes Review of Systems 10-point ROS is otherwise unremarkable Physical Examination - Vital Signs Temperature: 98.2 F Blood Pressure: 138/92 Pulse: 78 Respirations: 18 Pulse Ox (%): 94 - Physical Exam General: Alert, Oriented x3, Mild distress HEENT: Atraumatic, Normocephalic Neck: Supple, JVD not distended Respiratory: Clear to auscultation bilaterally, Normal air movement Cardiovascular: Regular rate/rhythm, Normal S1 S2 Capillary refill: <2 Seconds Gastrointestinal: W/out hepatosplenomegaly, No ascites, Tenderness Musculoskeletal: No clubbing, No swelling Integumentary: No rashes, No breakdown Neurological: Normal speech, Normal strength at 5/5 x4 extr, Cranial nerves 3-12 intact, Normal reflexes 2+ Lymphatics: No axilla or inguinal lymphadenopathy - Studies Laboratory Data (last 24 hrs) 03/02/24 03/02/24 00:30 00:30 WBC 11.30 H Hgb 12.0 Hct 37.9 Plt Count 334 Sodium 141 Potassium 3.8 BUN 12 Creatinine 0.77 Glucose 98 Total Bilirubin < 0.2 L AST 11 L ALT 23 Alkaline Phosphatase 71 Lipase 314 H Assessment and Plan - Plan Acute pancreatitis Pain control IV hydration N.p.o. for now Lipase elevated CT abdomen pelvis Zofran as needed Will get a lipid panel Patient denies any alcohol abuse Patient has a history of cholecystectomy Hypertension Antihypertensives titrated Continue home medications and titrate as needed Hyperlipidemia Continue statin UTI Started on IV antibiotic Monitor cultures GI/DVT prophylaxis Advanced directive full code Discharge Plan: Home Plan to discharge in: 48 Hours - Advance Directives Does patient have a Living Will: No Does patient have a Durable POA for Healthcare: No - Code Status/Comfort Care Code Status: Full Code Time Spent Managing Pts Care (In Minutes): 48
[2024-03-02] MEDS ORDERED: ACETAMINOPHEN 325 MG TABLET PO PRN (03:30)
[2024-03-02] MEDS ORDERED: HYDROCODONE/APAP 5/325 MG TAB PO PRN (03:35)
[2024-03-02] MEDS: NA CHLORIDE 0.9% 1,000 ML IV SCH (04:00)
[2024-03-02] MEDS ORDERED: MORPHINE 2 MG/ML SYR ONE ×3 (04:27→13:09)
[2024-03-02] MEDS: MORPHINE 2 MG/ML SYR IV PRN (04:40)
[2024-03-02] MEDS: ONDANSETRON 4 MG/2 ML VIAL IV PRN (04:40)
[2024-03-02] MEDS ORDERED: NA CHLORIDE 0.9% 50 ML ONE (08:13)
[2024-03-02] MEDS ORDERED: CEFTRIAXONE 1000 MG/VIAL ONE (08:13)
[2024-03-02] MEDS ORDERED: ENOXAPARIN 40 MG/0.4 ML SQ ONE (08:13)
[2024-03-02] MEDS: CEFTRIAXONE 1,000 MG in NA CHLORIDE 0.9% 50 ML IVPB SCH (09:00)
[2024-03-02] MEDS: ENOXAPARIN 40 MG/0.4 ML SQ SCH (09:00)
[2024-03-02] MEDS ORDERED: METRONIDAZOLE 500mg IVPB 0 MG/0 ML BAG IV ONE (13:51)
--- NOTE | 2024-03-02 14:25 | RAD REPORT ---
EXAM DESCRIPTION: CT - Abdomen Pelvis W Contrast - 03/02/2024 5:55 am CLINICAL HISTORY: Female, 44 years old, ABD PAIN COMPARISON: 10/03/2023 (report only available at the time of dictation), 09/10/2023 TECHNIQUE: CT acquisition of the abdomen and pelvis following the administration of IV contrast. Cor onal and sagittal reformatted images provided. This exam was performed according to departmental dose -optimization program which includes automated exposure control, adjustment of the mA and/or kV accor ding to patient size, and/or use of iterative reconstruction technique. FINDINGS: SUPPORTIVE DEVICES: None. LOWER CHEST: Mild basilar scarring/atelectasis. Normal heart size with coronary atherosclerosis. ABDOMEN AND PELVIS: Liver: Diffuse hypoenhancement relative to the spleen. Gallbladder and bile ducts: Postcholecystectomy changes with expected prominence of the bile ducts. Pancreas: Mild atrophy. Spleen: Normal. Adrenal glands: 2.6 cm left adrenal nodule with average attenuation of 15 Hounsfield units, previousl y described as an adenoma. Kidneys and ureters: Normal. Bladder: Nondistended without evident abnormality. Reproductive organs: Unremarkable. GI tract: Normal caliber without wall thickening. Normal appendix. A few loops of mid to distal small bowel are fluid-filled with several short air-fluid levels. Vessels: Unremarkable. Lymph nodes: No evident adenopathy. Peritoneum: No evidence of ascites, fluid collection, or free air. Abdominal wall: Umbilical surgical clip. MUSCULOSKELETAL: No acute osseous abnormality. Degenerative change of the spine and pelvis. IMPRESSION: 1. No acute abdominopelvic finding. 2. Chronic and incidental findings above. Electronically signed by: Ajit Green MD 03/02/2024 02:28 AM [facility] Due to temporary technical issues with the PACS/Fluency reporting system, reports are being signed by the in house radiologist without review as a courtesy to ensure prompt reporting. The interpreting r adiologist is fully responsible for the content of the report.
[2024-03-02] MEDS: METRONIDAZOLE 500mg IVPB 500 MG/100 ML BAG IV SCH (17:48)
--- NOTE | 2024-03-02 18:00 | P.PN ---
Date of Service: 03/02/24 Patient seen and examined. Patient complaining of abdominal pain. Patient reports several bouts of diarrhea over the past [address] abdomen and pelvis result reviewed and noted fluid-filled small bowel suggestive of enteritis. Diagnosis: Acute enterocolitis. Elevated lipase without radiographic evidence of acute pancreatitis. Plan: Supportive measures-analgesics as needed. IV antibiotics. Clear liquid diet. Monitor lipase level. IV hydration.
[2024-03-03 08:26] LABS: Absolute Eosinophils 0.1 K/uL (0-0.5); Absolute Lymphocytes (CBC) 1.5 K/uL (0.7-4.9); Absolute Monocytes 0.3 K/uL (0.1-1.3); Absolute Neutrophil 4.3 K/uL (1.8-8.0); Basophils % 0.5 % (0-1.3); Eosinophils % 2.3 % (0-4.4); Hematocrit 36.2 % (36.0-45.0); Hemoglobin 11.7 g/dL (12.0-15.0); MCH 26.2 pg (27.0-35.0); MCHC 32.3 g/dL (32.0-36.0); MPV 7.8 fL (7.6-11.3); Monocytes % 5.3 % (3.3-12.3); Neutrophils % 67.9 % (41.7-73.7); Platelets 267 thou/uL (152-406); RBC Red Blood Cell Count 4.47 M/uL (3.86-4.86); Red Cell Distribution Width 17.1 % (12.1-15.2)
[2024-03-03 08:36] LABS: Albumin 2.6 g/dL (3.4-5.0); Albumin/Globulin Ratio 0.8 (1.1-1.8); Anion Gap 5.3 mEq/L (5.0-15.0); Bilirubin Total 0.2 mg/dL (0.2-1.0); Globulin 3.4 g/dL (2.3-3.5); Magnesium 1.9 mg/dL (1.6-2.4); Potassium 3.3 mEq/L (3.5-5.1)
[2024-03-03] MEDS: POTASSIUM CL SA 10 MEQ TAB PO ONE (09:36)
--- NOTE | 2024-03-03 10:40 | P.PN ---
Date of Service: 03/03/24 Subjective: feeling slightly better today abdominal pain slowly improving. Nausea/vomiting improved tolerating liquid diet without issues appetite improving afebrile ROS: 10 point ROS as noted above, otherwise negative Physical Exam: GEN: Alert, oriented, NAD CV: Regular rate and rhythm, no edema Pulm: Nonlabored respirations on room air, clear bilaterally ABD: soft, mild tenderness Problem List: Acute enterocolitis vs Acute pancreatitis Elevated lipase without radiographic evidence of acute pancreatitis; resolved Elevated LFTs; unknown origin Incidental findings: 2.6cm Left Adrenal Nodule Anxiety/Depression Hypertension Hyperlipidemia hx prior PR hx PTSD Acute enterocolitis vs Acute pancreatitis Elevated lipase without radiographic evidence of acute pancreatitis; resolved on admission presents with worsening abdominal pain, multiple episodes of diarrhea over the last 24-[address] abdomen (03/01): A few loops of mid to distal small bowel are fluid-filled w ith several short air-fluid levels. continue empiric rocephin / flagyl (03/02-) lipase 314 on admission; resolved 03/03 continue IV fluids Pain control tolerating clear liquids; advance to full liquids today abdominal pain improving, nausea resolved. Elevated LFTs; unknown origin LFTs mildly elevated today. AST 101 / ALT 135 unknown etiology. ?Reactive to abx/medication/infxn daily labs Incidental findings: 2.6cm Left Adrenal Nodule CT abdomen incidentally noted 2.6 cm left adrenal nodule with average attenuation of 15 Hounsfield units, previously described as an adenoma Follow-up as outpatient with a repeat CT within 3-6 months. Anxiety/Depression Hypertension Hyperlipidemia hx prior PR hx PTSD confirm home meds, restart as appropriate VTE: lovenox Code: Full Dispo: Home, 1-2 days abdominal pain improves, diarrhea improves, tolerating diet without issues Time Spent Managing Pts Care (In Minutes): 39
--- NOTE | 2024-03-03 12:43 | EKG ---
Test Date: 2024-03-02 Test Time: 00:42:37 Credit Manager: DORA MEASUREMENT RESULTS: Intervals: Rate: 70 MT: 144 QRSD: 82 QT: 426 QTc: 460 [place]: P: 36 MT: 144 QRS: -3 T: 36 INTERPRETIVE STATEMENTS: Normal sinus rhythm Normal ECG Compared to ECG 02/21/2024 18:30:13 Atrial abnormality no longer present Electronically Signed On 03-03-24 12:40:27 CDT by James Patel
[2024-03-03] MEDS: NA CHLORIDE 0.9% 1,000 ML IV SCH (17:57)
[2024-03-04 07:59] LABS: Absolute Basophils 0.1 K/uL (0-0.5); Absolute Eosinophils 0.1 K/uL (0-0.5); Absolute Lymphocytes (CBC) 1.5 K/uL (0.7-4.9); Absolute Monocytes 0.5 K/uL (0.1-1.3); Basophils % 0.7 % (0-1.3); Eosinophils % 1.9 % (0-4.4); Hematocrit 36.9 % (36.0-45.0); Hemoglobin 12.2 g/dL (12.0-15.0); Lymphocytes % 21.3 % (15.3-44.8); MCH 26.7 pg (27.0-35.0); MCHC 32.9 g/dL (32.0-36.0); MCV 80.9 fL (80-100); MPV 7.6 fL (7.6-11.3); Monocytes % 6.7 % (3.3-12.3); Neutrophils % 69.4 % (41.7-73.7); Platelets 291 thou/uL (152-406); RBC Red Blood Cell Count 4.56 M/uL (3.86-4.86); Red Cell Distribution Width 17.4 % (12.1-15.2)
[2024-03-04 08:21] LABS: Albumin 2.7 g/dL (3.4-5.0); Albumin/Globulin Ratio 0.8 (1.1-1.8); Anion Gap 7.9 mEq/L (5.0-15.0); Bilirubin Total 0.2 mg/dL (0.2-1.0); Globulin 3.6 g/dL (2.3-3.5); Magnesium 1.9 mg/dL (1.6-2.4); Potassium 3.9 mEq/L (3.5-5.1); Protein, Total 6.3 g/dL (6.4-8.2)
[2024-03-04] MEDS: POTASSIUM CL SA 10 MEQ TAB PO SCH (10:10)
--- NOTE | 2024-03-04 10:30 | P.PN ---
Date of Service: 03/04/24 Subjective: felt some pain and nausea with intake but still feels some improvement each day urinating without issues. had BM yesterday. no diarrhea denies right sided abdominal pain. ROS: 10 point ROS as noted above, otherwise negative Physical Exam: GEN: Alert, oriented, NAD CV: Regular rate and rhythm, no edema Pulm: Nonlabored respirations on room air, clear bilaterally ABD: soft, mild tenderness Problem List: Acute enterocolitis vs Acute pancreatitis Elevated lipase without radiographic evidence of acute pancreatitis; resolved Elevated LFTs; unknown etiology Incidental findings: 2.6cm Left Adrenal Nodule Anxiety/Depression Hypertension Hyperlipidemia hx CAD s/p PCI (11/2023) hx PTSD Acute enterocolitis vs Acute pancreatitis Elevated lipase without radiographic evidence of acute pancreatitis; resolved on admission presents with worsening abdominal pain, multiple episodes of diarrhea over the last 24-[address] abdomen (03/01): A few loops of mid to distal small bowel are fluid-filled with several short air-fluid levels. rocephin/flagyl dc'd today. lipase 314 on admission; resolved 03/03 dc IVF (03/04) Pain control full liquid diet Elevated LFTs; unknown etiology unknown etiology. ?Reactive to abx/medication/infxn rocephin/flagyl dc'd today. Was started empirically for possible infectious colitis LFTs were normal on admission and started worsening day after antibiotics started. LFTs worse 03/04 no RUQ pain/tenderness daily labs Incidental findings: 2.6cm Left Adrenal Nodule CT abdomen incidentally noted 2.6 cm left adrenal nodule with average attenuation of 15 Hounsfield units, previously described as an adenoma Follow-up as outpatient with a repeat CT within 3-6 months. Anxiety/Depression Hypertension Hyperlipidemia hx CAD s/p PCI (11/2023) hx PTSD confirm home meds, restart as appropriate home plavix, aspirin, zoloft restarted 03/04 VTE: lovenox Code: Full Dispo: Home, 1-2 days LFTs improve, pain control Time Spent Managing Pts Care (In Minutes): 39
[2024-03-04] MEDS: CLOPIDOGREL 75 MG TABLET PO SCH (10:53)
[2024-03-04] MEDS ORDERED: ROSUVASTATIN 10 MG TAB PO SCH (21:00)
[2024-03-05 03:35] VITALS: BMI 42.0
[2024-03-05 07:30] VITALS: O2SAT 96
[2024-03-05 07:35] LABS: Absolute Basophils 0.1 K/uL (0-0.5); Absolute Eosinophils 0.2 K/uL (0-0.5); Absolute Lymphocytes (CBC) 1.9 K/uL (0.7-4.9); Absolute Monocytes 0.6 K/uL (0.1-1.3); Absolute Neutrophil 6.2 K/uL (1.8-8.0); Basophils % 0.6 % (0-1.3); Eosinophils % 2.6 % (0-4.4); Hematocrit 38.1 % (36.0-45.0); Hemoglobin 12.7 g/dL (12.0-15.0); MCH 26.8 pg (27.0-35.0); MCHC 33.4 g/dL (32.0-36.0); MCV 80.2 fL (80-100); MPV 7.4 fL (7.6-11.3); Monocytes % 6.4 % (3.3-12.3); Neutrophils % 69.4 % (41.7-73.7); Nucleated Red Blood Cells % 0.1 % (0-0); Platelets 355 thou/uL (152-406); RBC Red Blood Cell Count 4.75 M/uL (3.86-4.86); Red Cell Distribution Width 17.1 % (12.1-15.2)
[2024-03-05] MEDS ORDERED: MORPHINE 2 MG/ML SYR IV PRN (07:49)
[2024-03-05] MEDS ORDERED: LORAZEPAM 0.5 MG TABLET PO PRN (07:52)
[2024-03-05 08:02] LABS: ALT/SGPT 135 U/L (13-56); AST/SGOT 33 U/L (15-37); Albumin 2.9 g/dL (3.4-5.0); Albumin/Globulin Ratio 0.8 (1.1-1.8); Alkaline Phosphatase 178 U/L (45-117); Anion Gap 6.7 mEq/L (5.0-15.0); BUN Blood Urea Nitrogen 7 mg/dL (7-18); Bicarbonate 26 mEq/L (21-32); Globulin 3.6 g/dL (2.3-3.5); Glomerular Filtration Rate 111 ml/min (=/>90); Glucose Level 117 mg/dL (74-106); Potassium 3.7 mEq/L (3.5-5.1); Protein, Total 6.5 g/dL (6.4-8.2); Sodium Level 136 mEq/L (136-145)
[2024-03-05 08:08] LABS: Bilirubin Direct < 0.2 mg/dL (0-0.2); Bilirubin Total < 0.2 mg/dL (0.2-1.0)
[2024-03-05] MEDS: ASPIRIN EC 81 MG TAB PO SCH (09:14)
[2024-03-05] MEDS: SERTRALINE HCL 100 MG TAB PO SCH (09:15)
[2024-03-05] MEDS: POTASSIUM CL SA 10 MEQ TAB PO ONE (09:15)
[2024-03-05 12:12] VITALS: BP 116/73; TEMP 97.3
--- NOTE | 2024-03-06 07:08 | P.DS ---
Admission Date: 03/02/24 Discharge Date: 03/05/24 Disposition: ROUTINE DISCHARGE Discharge Condition: GOOD Reason for Admission: Abdominal pain Brief History of Present Illness: 44 yo F, PMH: Anxiety, depressive disorder,Myocardial infarction, PTSD Patient brought to ER with abdominal pain. Patient has a history of pancreatitis previously, the pain is similar to the previous episode. Denies any fever or chills. No nausea vomiting or diarrhea . Pain is epigastric region radiating to back. Sharp, 9 out of 10 in severity. Denies any dysuria. Patient was seen in the ER and was admitted for further management . Hospital Course: Problem List: Acute enterocolitis vs Acute pancreatitis Elevated lipase without radiographic evidence of acute pancreatitis; resolved Elevated LFTs secondary to medication; improved Incidental findings: 2.6cm Left Adrenal Nodule Anxiety/Depression Hypertension Hyperlipidemia hx CAD s/p PCI (11/2023) hx PTSD Presented to ED with nausea/vomiting, and abdominal pain. [place] similar to her previous pancreatitis episode. CT abdomen/pelvis without any significant acute findings. Labwork initially noted minimal leukocytosis of 11.3 and lipase of 314. She was empirically treated for possible enteritis and pancreatitis with IV fluids, liquid diet, and antibiotiocs (rocephin/flagyl). During the hospitalization she was never febrile, and the mild leuocytosis resolved by the following morning. She continued to improve daily. Lipase normalized. Her LFTs were noted to be elevated after discharge (normal at time of admission ). The pattern and timing was felt to be secondary to medication induced - her antibiotics. Given her improvement and no evidence of bacterial infection, her antibiotics were discontinued and she was monitored. Remained afebrile, no leukocytosis, continued to improve, and LFTs improved. LFTs on discharge [place]: <0.2 AST: 33 (peak: 144) ALT: 135 (peak : 212) Alkphos: 178 (peak: 212) Medications continue home meds as previously prescribed. Follow up PCP as scheduled tomorrow Recommend repeat LFTs within next few days to ensure continued improvement. Incidental findings: 2.6cm Left Adrenal Nodule CT abdomen incidentally noted 2.6 cm left adrenal nodule with average attenuation of 15 Hounsfield units, previously described as an adenoma. Stable size compared to recent imaging. Radiologist recommend follow-up as outpatient with a repeat CT within 3-6 months. Physical Exam: GEN: Alert, oriented, NAD CV: Regular rate and rhythm, no edema Pulm: Nonlabored respirations on room air, clear bilaterally ABD: soft, nontender Vital Signs/Physical Exam: Temp Pulse Resp BP Pulse Ox 97.3 F 78 16 116/73 97 03/05/24 12:00 03/05/24 12:00 03/05/24 12:00 03/05/24 12:00 03/05/24 12:00 Laboratory Data at Discharge: WBC 9.00 thou/uL (4.3-10.9) 03/05/24 06:55 Hgb 12.7 g/dL (12.0-15.0) 03/05/24 06:55 Hct 38.1 % (36.0-45.0) 03/05/24 06:55 Plt Count 355 thou/uL (152-406) 03/05/24 06:55 Sodium 136 mEq/L (136-145) 03/05/24 06:55 Potassium 3.7 mEq/L (3.5-5.1) 03/05/24 06:55 BUN 7 mg/dL (7-18) 03/05/24 06:55 Creatinine 0.63 mg/dL (0.55-1.02) 03/05/24 06:55 Glucose 117 mg/dL (74-106) H 03/05/24 06:55 Magnesium 1.9 mg/dL (1.6-2.4) 03/04/24 07:32 Total Bilirubin < 0.2 mg/dL (0.2-1.0) L 03/05/24 06:55 AST 33 U/L (15-37) 03/05/24 06:55 ALT 135 U/L (13-56) H 03/05/24 06:55 Alkaline Phosphatase 178 U/L (45-117) H 03/05/24 06:55 Triglycerides 104 mg/dL (<150) 03/02/24 00:30 Cholesterol 114 mg/dL (<200) 03/02/24 00:30 HDL Cholesterol 38 mg/dL (40-60) L 03/02/24 00:30 Cholesterol/HDL Ratio 3.00 03/02/24 00:30 Lipase 82 U/L (13-75) H 03/04/24 07:32 Home Medications: Sertraline HCl 150 mg PO DAILY 12/05/23 Suvorexant [Belsomra] 20 mg PO BEDTIME 12/05/23 hydrOXYzine pamoate [Hydroxyzine Pamoate] 1 tab PO BEDTIME PRN PRN 12/05/23 Aspirin [Adult Aspirin Regimen] 81 mg PO DAILY 30 Days #30 tab 12/06/23 Clopidogrel Bisulfate [Plavix*] 75 mg PO DAILY 30 Days #30 tab 12/06/23 Pantoprazole Sodium [Protonix] 40 mg PO DAILY 30 Days #30 tab 12/16/23 Isosorbide Mononitrate [Isosorbide Mononitrate ER] 60 mg PO DAILY 30 Days #30 tab 01/11/24 LORazepam [Ativan*] 1 mg PO DAILY tab 02/15/24 Rosuvastatin [Crestor*] 40 mg PO BEDTIME tab 02/15/24 Sertraline [Zoloft*] 150 mg PO DAILY 03/03/24 Physician Discharge Instructions: Presented to ED with nausea/vomiting, and abdominal pain. [place] similar to her previous pancreatitis episode. CT abdomen/pelvis without any significant acute findings. Labwork initially noted minimal leukocytosis of 11.3 and lipase of 314. She was empirically treated for possible enteritis and pancreatitis with IV fluids, liquid diet, and antibiotiocs (rocephin/flagyl). During the hospitalization she was never febrile, and the mild leuocytosis resolved by the following morning. She continued to improve daily. Lipase normalized. Her LFTs were noted to be elevated after discharge (normal at time of admission). The pattern and timing was felt to be secondary to medication induced - her antibiotics. Given her improvement and no evidence of bacterial infection, her antibiotics were discontinued and she was monitored. Remained afebrile, no leukocytosis, continued to improve, and LFTs improved. LFTs on discharge [place]: <0.2 AST: 33 (peak: 144) ALT: 135 (peak : 212) Alkphos: 178 (peak: 212) Medications continue home meds as previously prescribed. Follow up PCP as scheduled tomorrow Recommend repeat LFTs within next few days to ensure continued improvement. Incidental findings: 2.6cm Left Adrenal Nodule CT abdomen incidentally noted 2.6 cm left adrenal nodule with average attenuation of 15 Hounsfield units, previously described as an adenoma. Stable size compared to recent imaging. Radiologist recommend follow-up as outpatient with a repeat CT within 3-6 months. Followup: Riddhi Freitas FNP [Primary Care Provider] - 03/06/24 Time spent managing pt's care (in minutes): 45
== END 2024-03-05 13:15 | disposition home or self-care (01) | DRG 391 ==
LOC: ER 22:02 → ERHOLD 03-02 03:30 → 4TH 03-02 14:01
PROVIDERS: ADMIT Family Medicine; ATTEND Hospitalist
DX: K52.9 Noninfective gastroenteritis and colitis, unspecified (principal); K85.90 Acute pancreatitis without necrosis or infection, unspecified; N39.0 Urinary tract infection, site not specified; K86.1 Other chronic pancreatitis; I10 Essential (primary) hypertension; F32.A Depression, unspecified; F41.9 Anxiety disorder, unspecified; E78.5 Hyperlipidemia, unspecified; E27.9 Disorder of adrenal gland, unspecified; F43.10 Post-traumatic stress disorder, unspecified; I25.2 Old myocardial infarction; T36.95XA Adverse effect of unspecified systemic antibiotic, initial encounter; F17.210 Nicotine dependence, cigarettes, uncomplicated; R79.89 Other specified abnormal findings of blood chemistry; Z56.0 Unemployment, unspecified; Z95.5 Presence of coronary angioplasty implant and graft; Z79.82 Long term (current) use of aspirin; Z90.49 Acquired absence of other specified parts of digestive tract; Z79.02 Long term (current) use of antithrombotics/antiplatelets; Z79.899 Other long term (current) drug therapy
CPT/HCPCS: 36415; 74177; 80053; 80061; 81001; 81025; 82248; 83690; 83735; 84132; 84484; 85025; 87086; 87088; 93005; 96361; 96374; 96375; 99285; J0696; J1650; J2270; J2405; J7030; Q9967

== ENCOUNTER 2024-03-14 00:14 | Emergency (ER) | payer OTHER ==
--- OUTSIDE RECORDS SUMMARY | 2024-03-14 00:31 | XMS REPORT | Continuity of Care Document ---
Author Name Unknown Address [address] [facility] [address]. [phone] [facility] thconnect Address [address] [facility]. [phone] Support Name Relationship Address Phone RACHEL CASH Father Unknown Unavailable PHYSICIAN, NO Primary Care Physician Unknown Unav ailable MD MORA POLLOCK A Emergency Provider [address] [place] [address] JAN COX natural parent [address] [address] MD SHERIDAN MCMANUS Emergency Provider [facility], [place] [address] CHARITY ROCA Guarantor [address] [place] [address] MD RIDDHI [place] [address] MD AN IRIZARRY Emergency Provider [facility], [place] [address] MD CARLOS SOLANO A Primary Care Physician [address] [facility] [place] [address] OTHER, ENTER NAME IN NOTES Primary Care Physician Unknown Unavailable MD Arelis Navarro Emergency Provider [address] [place] [address] MD SHAN BUSCH Attending Provider [address] [place] [address] PIYUSH JUAREZ parent [address] [place] [address] 1 Personal Relationship Unknown Unavai lable Unavailable Personal Relationship Unknown Unavai lable Leyda Villa Mother Unknown Unavailable Rachel Cox Father [address] [place] [address] one else per patient, No Emergency Contact Unknown Unavailable Rachel Cox Father [address] [place] [address] RACHEL COX F [address] [place] [address] PATIENT, NO ONE ELSE PER Personal Relationship Unknown Unavailable Care Team Providers Care Case Managers Name Role Phone JOANNE MONTES Primary Care Physician Unavailab FARTUN Bernal Attending Clinician Unavailable JOANNE MONTES Attending Clinician Unavailable GISELLE OSORIO Attending Clinician Unavailable LAB90 Attending Clinician Unavailable COSMO Attending Clinician Unavailable OLIVIA GARCIA Attending Clinician Unavailable Olivia Garcia MD Attending Clinician + [phone] SHERIDAN MCMANUS Attending Clinician UnavailROBERTO Melgar Attending Clinician Unavailable Roberto Richards MD Attending Clinician +[phone] SHAN BUSCH Attending Clinician Unavailable RIDDHI MYLES Attending Clinician Unav robertable AN IRIZARRY Attending Clinician Unavailable NARAYAN NARVAEZ Attending Clinician Unavailable Narayan Narvaez DO Attending Clinician +[phone] Saleem EDWARD Attending Clinician Unavailable Saleem Perez Attending Clinician [phone] BRITTNI PADGETT S Attending Clinician Unavailable Brittni Elam S Attending Clinician [phone] JESÚS MONTERO Attending Clinician Unavailable Leeanne Wise NP Attending Clinician + [phone] Jesús Montero MD Attending Clinician +[phone] FELTON Attending Clinician Unavailable MELIDA LONGORIA Attending Clinician Unavailable Melida Longoria MD Attending Clinician [phone] WIL MCQUEEN Attending Clinician Unavailable Mcqueen JEAN MARIESauln R Attending Clinician + [phone] DEE WANG Attending Clinician Unavaila angel Wang NEW CAR DRIVER, Dee Poncho Attending Clinician [phone] Doctor Unassigned, [place] Attending Clinician U navailCEM Mccullough Attending Clinician Unavailable Cem Choi MD Attending Clinician [phone] Ralph RAMIREZ, Shelley Ayala Attending Clinician [phone] Mo NEW CAR DRIVER, Bal Attending Clinician + [phone] BAL HASSAN Attending Clinician Unavailable Ebviral MEDINAP, Tremaine Attending Clinician [phone] TREMAINE BECERRA Attending Clinician Unavailable LEEANNE WISE Attending Clinician Unavailable MORA POLLOCK Attending Clinician Unavailable Claudia MEDINAP, Best Odonnell Attending Clinician [phone] BEST TAY[place]OR Attending Clinician Unavailable Marbella Rizo RN Attending Clinician Unavailab bailee MEDINAP, Abdias Attending Clinician [phone] ABDISA ROBERTSON Attending Clinician Unavailable Silver RAMIREZ, Kamryn Ayala Attending Clinician Unavail able Bushra Rios DO Attending Clinician [phone] BUSHRA RIOS Attending Clinician Unavailab SINCERE morocho BA Attending Clinician Unavailable GUMARO ALVAREZ Attending Clinician Unavailable NEIL WILKINS Attending Clinician UnavailLISA Parker Attending Clinician Unavailable JW SOLORZANO Attending Clinician Unavailab SANIA Glover Attending Clinician Unavailable GINA MARTIN Attending Clinician Unavailable YIN RIOS Attending Clinician Unavailab ALBERTO Cason Attending Clinician Unavailable ANTHNOY SCHNEIDER Attending Clinician UnavailDARCIE Gentile Attending Clinician Unavailable ARLETTE ROBERT Attending Clinician Unavailable GISELA RIOS Attending Clinician Unavail able HUGO COFFMAN Attending Clinician Unavailable OLIVIA GARCIA Admitting Clinician Unavailable ROBERTO RICHARDS Admitting Clinician Unavailable SHAN BUSCH Admitting Clinician Unavailable RIDDHI MYLES Admitting Clinician Unav ailable SINGER NARAYAN Admitting Clinician Unavailable JESÚS MONTERO Admitting Clinician Unavailable Jesús Montero MD Admitting Clinician [phone] LA NENACHRISTELLE Admitting Clinician Unavailable MELIDA LONGORIA [...] Source [employer] MP [facility]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 [id number] 2023 00:00:00 [employer] 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 [id number] 2023 00:00:00 2023 00:00:00 [facility] BCBS BLUE ADVANTAGE O [id number] 2020 00:00:00 Problems Condition Name Condition Details [...] d type Disease Active - 00:00: 00 [facility] Elevated brain natriureti c peptide (BNP) level Elevated brain natriureti c peptide (BNP) level Disease Active 2020-07 0-02 00:00: 00 [facility] Cigarette smoker Cigarette smoker Disease Active 2020-07 0-02 00:00: 00 [facility] Family history of early CAD Family history of early CAD Disease Active 2020-07 0-02 00:00: 00 [facility] Primary hypertensi on Primary hypertensi on Disease Active 2020-07 0-02 00:00: 00 [facility] Elevated brain natriureti c peptide (BNP) level Elevated brain natriureti c peptide (BNP) level Disease Active 2020-07 0- 00:00: 00 [facility] Snores Snores Disease Active 2020-07 0- 00:00: 00 [facility] Chest pain Chest pain Disease Active 2020-07 0- 00:00: 00 [facility] Morbid obesity with body mass index of 40.0-49.9 Morbid obesity with body mass index of 40.0-49.9 Disease Active 2020-07 0- 00:00: 00 [facility] No known active problems No known active problems Disease [facility] Allergies, Adverse Reactions, Alerts Allergy Name Allergy Type Status Severity Reaction(s) Onset Date Inactive Date Treating Clinician Comments Source NO KNOWN ALLERGIE S Drug Class Active [facility] Social History Social Habit Start Date Stop Date Quantity Comments Source History of tobacco use 2018-10-27 00:00:00 Cigarette Smoker Kellee Buckley - External Gender identity [facility] Sexual orientation Saleem Buckley - External Alcoholic beverage intake 2024-02-06 00:00:00 2024-02-06 00:00:00 Current drinker of alcohol (finding) Kellee Buckley - External History of Social function 2023-10-28 00:00:00 2023-10-28 00:00:00 Kellee Buckley - External Alcohol Comment 2023-10-28 00:00:00 2023-10-28 00:00:00 rarely Kellee Buckley - External Cigarettes smoked current (pack per day) - Reported 2023-10-28 00:00:00 2023-10-28 00:00:00 Kellee Davise Cigarette pack-years 2023-10-28 00:00:00 2023-10-28 00:00:00 Kellee Leiva External Tobacco use and exposure 2023-10-28 00:00:00 2023-10-28 00:00:00 Smokeless tobacco non-user Kellee Leiva External Tobacco Comment 2023-02-15 00:00:00 2023-02-15 00:00:00 In the process of quitting. Now smokes 5 cigarettes/ day from 2 packs per day [facility] Exposure to SARS-CoV-2 (event) 2021-12-30 00:00:00 2022-01-09 16:34:00 Unable to assess [facility] Education - What is the highest level of school you have completed or the highest degree you have received? 2021-04-07 00:00:00 2021-04-07 00:00:00 High school graduate [facility] Sex assigned at 1980 00:00:00 1980 00:00:00 Kellee Davies Smoking Status Start Date Stop Date Source Smokes tobacco daily 2023-10-28 00:00:00 Kellee Davies Unknown if ever smoked [facility] Medications Ordered Medication Name Filled Medication Name Start Date Stop Date Current Medication? Ordering Clinician Indication Dosage Frequency Signature (SIG) Comments Components Source Methylpredn isolone Acetate (Depo-Medro l) 40 mg/ml - Physician Administere d (J1030) 02-05 13:21: 25 No [id number] 40mg 40 mg, Physician Administer ed, ONCE, 1 dose, On Esperanza 02/06/24 at 1145 Kellee pinedo hydrOXYzine Pamoate 50 MG oral Capsule 02-05 11:06: 49 Yes [id number] 50mg Q.5D Take 1 capsule (50 mg total) by mouth 2 times daily as needed for anxiety. Kellee pinedo Lorazepam (ATIVAN) 0.5 MG oral Tablet tablet 01-09 00:00: 00 Yes [id number] .5mg Q.5D take 1 tablet by mouth 2 times daily as needed for anxiety Kellee pinedo Aspirin (Aspirin Low Dose) 81 MG oral Tablet Delayed Response 01-05 00:00: 00 Yes [id number] 81mg QD Take 1 tablet (81 mg total) by mouth daily. Kellee pinedo Atorvastati n Calcium 40 MG oral Tablet 01-05 00:00: 00 Yes [id number] 40mg QD Take 1 tablet (40 mg total) by mouth daily. Kellee pinedo Suvorexant (Belsomra) 20 MG oral Tablet 01-05 00:00: 00 Yes [id number] 1{tbl} QD Take 1 tablet by mouth nightly. Kellee pinedo Clopidogrel Bisulfate (PLAVIX) 75 MG oral Tablet 01-05 00:00: 00 Yes [id number] 75mg QD Take 1 tablet (75 mg total) by mouth daily. Kellee pinedo hydrOXYzine Pamoate 50 MG oral Capsule 12-12 09:19: 23 Yes [id number] 50mg Q.5D Take 1 capsule (50 mg total) by mouth 2 times daily as needed for anxiety. Kellee pinedo Lorazepam (ATIVAN) 0.5 MG oral Tablet tablet 12-12 00:00: 00 Yes [id number] .5mg Q.5D Take 1 tablet (0.5 mg total) by mouth 2 times daily as needed for anxiety. Kellee pinedo Aspirin Low Dose 81 MG oral Tablet Delayed Response 12-05 00:00: 00 Yes [id number] 81mg Take 1 tablet (81 mg total) by mouth daily. Kellee pinedo Atorvastati n Calcium 40 MG oral Tablet 12-05 00:00: 00 Yes [id number] 40mg Take 1 tablet (40 mg total) by mouth daily. Kellee pinedo Clopidogrel Bisulfate (PLAVIX) 75 MG oral Tablet 12-05 00:00: 00 Yes [id number] 75mg Take 1 tablet (75 mg total) by mouth daily. Kellee pinedo Mometasone Furo-Formot camelia Fum (Dulera) 200-5 MCG/ACT inhalation Aerosol 12-05 00:00: 00 Yes TWICE DAILY Kellee pinedo Ferrous Sulfate 325 (65 Fe) MG oral Tablet 12-04 00:00: 00 Yes [id number] 325mg QD Take 1 tablet (325 mg total) by mouth daily (with breakfast) . Kellee pinedo Vitamin D, Ergocalcife rol, 1.25 MG (46754 UT) oral Capsule 12-04 00:00: 00 Yes [id number] 85625R Q1W Take 1 capsule (50,000 units total) by mouth once a week. Kellee pinedo Mirtazapine 45 MG oral Tablet 12-02 10:49: 07 12-02 00:00 :00 No [id number] 45mg Take 1 tablet (45 mg total) by mouth nightly. Kellee pinedo hydrOXYzine Pamoate 50 MG oral Capsule 12-02 10:49: 04 Yes [id number] 50mg Q.5D Take 1 capsule (50 mg total) by mouth 2 times daily as needed for anxiety. Kellee pinedo Ascorbic Acid 500 MG oral Tablet 12-02 10:48: 55 12-02 00:00 :00 No 50mg Take 50 mg by mouth. Kellee pinedo Suvorexant (Belsomra) 20 MG oral Tablet 12-02 00:00: 00 Yes [id number] 1{tbl} Take 1 tablet by mouth nightly. Kellee pinedo Lorazepam 1 MG oral Tablet 12-02 00:00: 00 12-12 00:00 :00 No [id number] 1mg Q.5D Take 1 tablet (1 mg total) by mouth 2 times daily as needed for anxiety. Kellee pinedo Doxepin HCl 3 MG oral Tablet 11-27 00:00: 00 Yes [id number] 1{tbl} QD TAKE 1 TABLET BY MOUTH EVERY DAY AT NIGHT Kellee pinedo Aripiprazol e 5 MG oral Tablet 11-27 00:00: 00 Yes [id number] 5mg QD TAKE 1 TABLET (5 MG TOTAL) BY MOUTH DAILY. Kellee pinedo Mirtazapine 45 MG oral Tablet 10-28 13:20: 59 Yes [id number] 45mg Take 1 tablet (45 mg total) by mouth nightly. Kellee pinedo Ascorbic Acid 500 MG oral Tablet 10-28 13:20: 47 Yes 50mg Take 50 mg by mouth. Kellee pinedo hydrOXYzine Pamoate 50 MG oral Capsule 10-28 13:20: 47 10-28 00:00 :00 No [id number] 50mg Q.5D Take 1 capsule (50 mg total) by mouth every 4 to 6 hours as needed. Kellee pinedo Sertraline HCl 150 MG oral Capsule 10-28 13:20: 03 10-28 00:00 :00 No 150mg Take 150 mg by mouth daily. Kellee pinedo Doxepin HCl 3 MG oral Tablet 10-28 00:00: 00 Yes [id number] 1{tbl} Take 1 tablet by mouth nightly. Kellee pinedo Aripiprazol e 5 MG oral Tablet 10-28 00:00: 00 Yes [id number] 5mg Take 1 tablet (5 mg total) by mouth daily. Kellee pinedo Suvorexant 10 MG oral Tablet 10-28 00:00: 00 12-02 00:00 :00 No [id number] 1{tbl} Take 1 tablet by mouth nightly. Kellee pinedo Sertraline HCl 50 MG oral Tablet 10-26 00:00: 00 Yes [id number] Kellee pinedo HYDROcodone -acetaminop hen (NORCO) 10-325 mg tablet 1 tablet 10-10 06:15: 00 10-10 05:25 :00 No 1{tbl} 1 tablet, Oral, ONCE NOW, 1 dose, On Sat10/11/23 at 0115, [facility] iopamidol (ISOVUE 370-500 mL) injection 100 mL 10-10 05:00: 00 10-10 05:00 :00 No [id number] 100mL 100 mL, Intravenou s, ONCE, 1 dose, On Sat10/11/23 at 0000, Routine [facility] ketorolac (TORADOL) injection 30 mg 10-10 04:30: 00 10-10 03:29 :00 No 30mg 30 mg, Slow IV Push, ONCE, 1 dose, On Esperanza 10/10/23 at 2330, Routine [facility] NaCl 0.9% (NS) IV infusion 1,000 mL 10-10 04:15: 00 10-10 05:18 :00 No 1000mL at 999 mL/hr, Intravenou s, ONCE, 1 dose, On Sat10/10/23 at 2315, Routine [facility] ondansetron (ZOFRAN (PF)) injection 4 mg 10-10 04:00: 00 10-10 03:54 :00 No 4mg 4 mg, Slow IV Push, ONCE, 1 dose, On Sat10/10/23 at 2300, [facility] morpHINE (4 mg/mL) injection 4 mg 10-10 04:00: 00 10-10 03:54 :00 No 4mg 4 mg, Slow IV Push, ONCE, 1 dose, On Esperanza 10/10/23 at 2300, STAT [facility] traMADoL (ULTRAM) 50 mg tablet 10-10 00:00: 00 Yes [id number] 50mg Take 1 tablet by mouth every 6 (six) hours as needed for Pain (scale 7-10). Indication s: acute pain [facility] phenazopyri dine 200 mg tablet 10-10 00:00: 00 Yes [id number] 200mg Take 1 tablet by mouth in the morning and 1 tablet at noon and 1 tablet in the evening. [facility] ondansetron (ZOFRAN) 4 mg tablet 10-10 00:00: 00 Yes [id number] 4mg Take 1 tablet by mouth every 8 (eight) hours as needed for Nausea and Vomiting (N/V). [facility] ketorolac 10 mg tablet 10-10 00:00: 00 Yes [id number] 10mg Take 1 tablet by mouth every 6 (six) hours as needed for Pain (scale 7-10). [facility] Sertraline HCl 100 MG oral Tablet 10-09 00:00: 00 Yes [id number] 100mg Take 1 tablet (100 mg total) by mouth every morning. Kellee pinedo acetaminoph en (TYLENOL) tablet 975 mg 2022-07 04:15: 00 07-02 03:11 :00 No 975mg 975 mg, Oral, ONCE, 1 dose, On Sat07/01/23 at 2215, [facility] dicyclomine (BENTYL) tablet 20 mg 2022-07 03:15: 00 07-02 03:11 :00 No 20mg 20 mg, Oral, ONCE, 1 dose, On Sat07/01/23 at 2115, [facility] ketorolac (TORADOL) injection 30 mg 2022-07 03:15: 00 07-02 02:32 :00 No 30mg 30 mg, Slow IV Push, ONCE, 1 dose, On Sat07/01/23 at 2115, Routine [facility] ondansetron (ZOFRAN (PF)) injection 4 mg 2022-07 03:00: 00 07-02 02:03 :00 No 4mg 4 mg, Slow IV Push, ONCE, 1 dose, On Sat07/01/23 at 2100, [facility] NaCl 0.9% (NS) bolus infusion 1,000 mL 2022-07 03:00: 00 07-02 04:10 :00 No 1000mL at 999 mL/hr, 1,000 mL, IV Infusion, ONCE, 1 dose, On Sat07/01/23 at 2100, STAT [facility] dicyclomine 20 mg tablet 2022-07 00:00: 00 Yes [id number] 20mg Take 1 tablet by mouth 4 (four) times daily. [facility] ondansetron 4 mg disintegrat ing tablet 2022-07 00:00: 00 Yes [id number] 4mg Take 1 tablet by mouth every 4 (four) hours as needed for Nausea and Vomiting (N/V). [facility] Alprazolam 1 MG oral Tablet 2022-07 00:00: 00 12-12 00:00 :00 No [id number] 2mg Take 2 tablets (2 mg total) by mouth 2 times daily. Kellee pinedo Pantoprazol e Sodium 20 MG oral Tablet Delayed Response 2022-07 00:00: 00 12-02 00:00 :00 No Take by mouth. Kellee pinedo ketorolac (TORADOL) injection 15 mg 2022-07 01:00: 00 05-10 00:09 :00 No 15mg 15 mg, Slow IV Push, ONCE, 1 dose, On Sat05/09/23 at 2000, [facility] proCHLORper azine (COMPAZINE) injection 5 mg 2022-07 23:30: 00 05-09 22:48 :00 No 5mg 5 mg, Slow IV Push, ONCE, 1 dose, On Sat05/09/23 at 1830, [facility] diphenhydrA MINE (BENADRYL) injection 25 mg 2022-07 22:45: 00 05-09 22:48 :00 No 25mg 25 mg, Slow IV Push, ONCE, 1 dose, On Sat05/09/23 at 1745, STAT [facility] HYDROcodone -acetaminop hen (NORCO) 10-325 mg tablet 1 tablet 2022-07 0-25 02:00: 00 05-01 01:04 :00 No 1{tbl} 1 tablet, Oral, ONCE, 1 dose, On Sat04/30/23 at 2100, Routine [facility] iopamidol (ISOVUE 370-500 mL) injection 100 mL 2022-07 00:45: 00 05-01 00:45 :00 No [id number] 100mL 100 mL, Intravenou s, ONCE, 1 dose, On Sat04/30/23 at 1945, Routine [facility] NaCl 0.9% (NS) bolus infusion 1,000 mL 2022-07 00:00: 00 05-01 00:45 :00 No 1000mL at 999 mL/hr, 1,000 mL, IV Piggyback, ONCE, 1 dose, On Sat04/30/23 at 1900, STAT [facility] proCHLORper azine (COMPAZINE) injection 5 mg 2022-07 23:45: 00 04-30 23:09 :00 No 5mg 5 mg, Slow IV Push, ONCE, 1 dose, On Sat04/30/23 at 1845, [facility] diphenhydrA MINE (BENADRYL) injection 25 mg 2022-07 23:00: 00 04-30 23:09 :00 No 25mg 25 mg, Slow IV Push, ONCE, 1 dose, On Sat04/30/23 at 1800, STAT [facility] dicyclomine 20 mg tablet 2022-07 00:00: 00 07-01 00:00 :00 No [id number] 20mg Take 1 tablet by mouth 4 (four) times daily. [facility] acetaminoph en (TYLENOL) tablet 1,000 mg 2022-07 02:45: 00 04-17 02:43 :00 No 1000mg 1,000 mg, Oral, ONCE, 1 dose, On Sat04/16/23 at 2145, [facility] ondans[facility] (ZOFRAN (PF)) injection 4 mg 2022-07 0- 03:15: 00 04-09 02:13 :00 No 4mg 4 mg, Slow IV Push, ONCE, 1 dose, On Sat04/08/23 at 2215, [facility] dicyclomine (BENTYL) tablet 20 mg 2022-07 03:15: 00 04-09 02:16 :00 No 20mg 20 mg, Oral, ONCE, 1 dose, On Sat04/08/23 at 2215, Routine [facility] ondansetron (ZOFRAN (PF)) injection 4 mg 2022-07 23:45: 00 04-08 23:16 :00 No 4mg 4 mg, Slow IV Push, ONCE, 1 dose, On Sat04/08/23 at 1845, [facility] morpHINE (2 mg/mL) injection 4 mg 2022-07 23:45: 00 04-08 23:45 :00 No 4mg 4 mg, Slow IV Push, ONCE, 1 dose, On Sat04/08/23 at 1845, STAT [facility] ondansetron 4 mg disintegrat ing tablet 2022-07 00:00: 00 07-01 00:00 :00 No [id number] 4mg Take 1 tablet by mouth every 8 (eight) hours as needed for Nausea and Vomiting (N/V). [facility] dicyclomine 20 mg tablet 2022-07 00:00: 00 04-30 00:00 :00 No [id number] 20mg Take 1 tablet by mouth 4 (four) times daily. [facility] acetaminoph en (TYLENOL) tablet 1,000 mg 03-10 04:30: 00 03-10 04:29 :00 No 1000mg 1,000 mg, Oral, ONCE, 1 dose, On 03/09/23 at 2330, [facility] iopamidol (ISOVUE 370-500 mL) injection 85 mL 03-10 04:30: 00 03-10 04:30 :00 No [id number] 85mL 85 mL, Intravenou s, ONCE, 1 dose, On 03/09/23 at 2330, Routine [facility] FENTanyl PF (SUBLIMAZE (PF)) injection 75 mcg 03-10 04:00: 00 03-10 02:58 :00 No 75ug 75 mcg, Slow IV Push, ONCE, 1 dose, On 03/09/23 at 2300, STAT [facility] NaCl 0.9% (NS) IV infusion 1,000 mL 03-10 03:00: 00 Yes 1000mL at 20 mL/hr, IV Infusion, CONTINUOUS , Starting on 03/09/23 at 2200, Until Discontinu ed, Routine [facility] ondansetron (ZOFRAN (PF)) injection 4 mg 03-10 02:00: 00 03-10 02:01 :00 No 4mg 4 mg, Slow IV Push, ONCE, 1 dose, On 03/09/23 at 2100, [facility] morpHINE (4 mg/mL) injection 4 mg 03-10 02:00: 00 03-10 02:01 :00 No 4mg 4 mg, Slow IV Push, ONCE, 1 dose, On 03/09/23 at 2100, STAT [facility] polyethylen e glycol 3350 (MIRALAX) 17 gram powder 03-09 00:00: 00 Yes [id number] 1{packe t} Take 1 Packet by mouth once daily as needed for Constipati on. [facility] Simethicone 125 mg 03-09 00:00: 00 Yes [id number] 125mg Take 1 capsule by mouth after meals and at bedtime as needed for Gas. [facility] iopamidol (ISOVUE 370-500 mL) injection 100 mL 03-02 06:15: 00 03-02 06:15 :00 No [id number] 100mL 100 mL, Intravenou s, ONCE, 1 dose, On 03/02/23 at 0115, Routine [facility] NaCl 0.9% (NS) IV infusion 1,000 mL 03-02 05:15: 00 Yes 1000mL at 999 mL/hr, Intravenou s, CONTINUOUS , Starting on 03/02/23 at 0015, Until Discontinu ed, Routine [facility] ketorolac (TORADOL) injection 30 mg 03-02 05:15: 00 03-02 04:20 :00 No 30mg 30 mg, Slow IV Push, ONCE, 1 dose, On 03/02/23 at 0015, Routine [facility] ondansetron (ZOFRAN (PF)) injection 4 mg 03-02 05:00: 00 03-02 05:24 :00 No 4mg 4 mg, Slow IV Push, ONCE, 1 dose, On 03/02/23 at 0000, [facility] morpHINE (4 mg/mL) injection 4 mg 03-02 05:00: 00 03-02 05:24 :00 No 4mg 4 mg, Slow IV Push, ONCE, 1 dose, On 03/02/23 at 0000, STAT [facility] ondansetron (ZOFRAN (PF)) injection 4 mg 03-02 04:15: 00 03-02 04:21 :00 No 4mg 4 mg, Slow IV Push, ONCE, 1 dose, On Sat03/01/23 at 2315, [facility] On[facility] 4 MG oral Tablet 03-02 00:00: 00 Yes [id number] 4mg Q.[id number] 3D Take 1 tablet (4 mg total) by mouth every 8 hours as needed. Kellee pinedo dicyclomine 20 mg tablet 03-02 00:00: 00 04-30 00:00 :00 No [id number] 20mg Take 1 tablet by mouth every 6 (six) hours as needed for Abdominal pain. [facility] metoclopram tracy HCl (REGLAN) injection 10 mg 02-18 06:45: 00 02-18 06:43 :00 No 10mg 10 mg, Slow IV Push, ONCE, 1 dose, On Sat02/18/23 at 0145, [facility] morpHINE (4 mg/mL) injection 4 mg 02-18 05:30: 00 02-18 05:28 :00 No 4mg 4 mg, Slow IV Push, ONCE, 1 dose, On Sat02/18/23 at 0030, STAT [facility] ondansetron (ZOFRAN (PF)) injection 4 mg 02-18 05:30: 00 02-18 05:28 :00 No 4mg 4 mg, Slow IV Push, ONCE, 1 dose, On Sat02/18/23 at 0030, [facility] NaCl 0.9% (NS) bolus infusion 1,000 mL 02-18 05:30: 00 02-18 05:15 :00 No 1000mL at 999 mL/hr, 1,000 mL, IV Infusion, ONCE, 1 dose, On Sat02/18/23 at 0030, STAT [facility] proMETHazin e (PHENERGAN) 25 mg in NaCl 0.9% (NS) 50 mL IV piggyback 02-18 04:30: 00 02-18 04:28 :00 No 25mg 25 mg, IV Piggyback, ONCE, 1 dose, On Sat02/17/23 at 2330, [facility] proMETHazin e 25 mg tablet 02-18 00:00: 00 Yes [id number] 25mg Take 1 tablet by mouth every 6 (six) hours as needed for Nausea and Vomiting (N/V). [facility] escitalopra m oxalate (LEXAPRO) 5 mg tablet 02-17 16:23: 24 Yes 10mg Take 2 tablets by mouth at bedtime. [facility] topiramate (TOPAMAX) 200 mg tablet 02-17 16:23: 24 Yes 200mg Take 1 tablet by mouth every evening. [facility] bupropion HCl (WELLBUTRIN ORAL) 02-17 16:23: 24 Yes 150mg Take 150 mg by mouth every morning. [facility] OLANZapine (ZYPREXA) 15 mg tablet 02-17 16:23: 24 Yes 15mg Take 1 tablet by mouth every evening. [facility] ALPRAZOLAM ORAL 02-17 16:23: 24 Yes 2mg Take 2 mg by mouth in the morning and 2 mg in the evening. [facility] melatonin 10 mg Tab 02-17 16:23: 24 Yes 1{tbl} Take 1 tablet by mouth at bedtime. [facility] trazodone HCl (TRAZODONE ORAL) 02-17 16:23: 24 Yes 400mg Take 400 mg by mouth at bedtime. [facility] lactated ringers IV infusion 1,000 mL 02-17 02:15: 00 02-17 22:14 :00 No 1000mL at 100 mL/hr, 1,000 mL, IV Infusion, CONTINUOUS , Starting on 02/16/23 at 2115, Until 02/17/23 at 1714, Routine [facility] traZODone (DESYREL) tablet 400 mg 02-17 02:00: 00 Yes 400mg 400 mg, Oral, QHS, First dose on 02/16/23 at 2100, Until Discontinu ed [facility] [facility] (MELATIN[facility] tablet 9 mg 02-17 02:00: 00 Yes 9mg 9 mg, Oral, QHS, First dose on 02/16/23 at 2100, Until Discontinu ed [facility] morpHINE (2 mg/mL) injection 2 mg 02-17 01:07: 50 03-01 01:06 :50 No 2mg 2 mg, Slow IV Push, Q4HPRN, Starting on 02/16/23 at 2006, Until [place] 02/28/23 at 2005, Routine, Pain (scale 7-10) [facility] OLANZapine (ZyPREXA) tablet 15 mg 02-16 22:00: 00 Yes 15mg 15 mg, Oral, QPM, First dose on 02/16/23 at 1700, Until Discontinu ed, Routine [facility] buPROPion XL (WELLBUTRIN XL) tablet 150 mg 02-16 14:00: 00 Yes 150mg 150 mg, Oral, DAILY, First dose on 02/16/23 at 0900, Until Discontinu ed [facility] enoxaparin (LOVENOX) injection 40 mg 02-16 14:00: 00 Yes 40mg 40 mg, Subcutaneo us, DAILY, First dose on Sat02/16/23 at 0900, Until Discontinu ed, Routine [facility] methocarbam oL (ROBAXIN) tablet 500 mg 02-16 06:04: 59 Yes 500mg 500 mg, Oral, Q6HPRN, Starting on 02/16/23 at 0104, Until Discontinu ed, Routine, Muscle Spasms [facility] ALPRAZolam (XANAX) tablet 2 mg 02-16 06:03: 54 Yes 2mg 2 mg, Oral, TIDPRN, Starting on 02/16/23 at 0103, Until Discontinu ed, Anxiety [facility] lactated ringers IV infusion 1,000 mL 02-16 03:15: 00 02-16 23:14 :00 No 1000mL at 100 mL/hr, 1,000 mL, IV Infusion, CONTINUOUS , Starting on Sat02/15/23 at 2215, Until 02/16/23 at 1814, Routine [facility] morpHINE (2 mg/mL) injection 2 mg 02-16 03:07: 02 02-17 01:08 :14 No 2mg 2 mg, Slow IV Push, Q4HPRN, Starting on Sat02/15/23 at 2207, Until 02/16/23 at 2008, Routine, Pain (scale 7-10) [facility] traMADoL (ULTRAM) tablet 50 mg 02-16 03:06: 59 02-18 03:05 :59 No 50mg 50 mg, Oral, Q8HPRN, Starting on Sat02/15/23 at 2206, Until Sat02/17/23 at 2205, Routine, Pain (scale 4-6) [facility] acetaminoph en (TYLENOL) tablet 1,000 mg 02-16 03:06: 50 Yes 1000mg 1,000 mg, Oral, Q6HPRN, Starting on Sat02/15/23 at 2206, Until Discontinu ed, Routine, Pain (scale 1-3), Temp > 38 C [facility] ALPRAZolam (XANAX) 1 mg tablet 02-16 01:09: 19 02-15 00:00 :00 No 1mg Take 1 tablet by mouth in the morning and 1 tablet in the evening. [facility] iopamidol (ISOVUE 370-500 mL) injection 80 mL 02-16 00:30: 00 02-16 00:30 :00 No [id number] 80mL 80 mL, Intravenou s, ONCE, 1 dose, On Sat02/15/23 at 1930, Routine [facility] lactated ringers IV infusion 1,000 mL 02-16 00:00: 00 02-16 03:07 :30 No [id number] 1000mL at 500 mL/hr, 1,000 mL, IV Infusion, CONTINUOUS , Starting on Sat02/15/23 at 1900, Until Sat02/15/23 at 2207, [facility] FENTanyl PF (SUBLIMAZE (PF)) injection 75 mcg 02-15 23:45: 00 02-15 23:13 :00 No [id number] 75ug 75 mcg, Slow IV Push, ONCE, 1 dose, On Sat02/15/23 at 1845, Routine [facility] dicyclomine (BENTYL) injection 20 mg 02-15 22:15: 00 02-15 21:46 :00 No [id number] 20mg 20 mg, Intramuscu lar, ONCE NOW, 1 dose, On Sat02/15/23 at 1715, Routine [facility] LORazepam (ATIVAN) injection 1 mg 02-15 21:45: 00 02-15 21:46 :00 No [id number] 1mg 1 mg, Slow IV Push, ONCE, 1 dose, On Sat02/15/23 at 1645, STAT [facility] ondansetron (ZOFRAN (PF)) injection 4 mg 02-15 21:45: 00 02-15 21:46 :00 No [id number] 4mg 4 mg, Slow IV Push, ONCE, 1 dose, On Sat02/15/23 at 1645, [facility] HYDROcodone -acetaminop hen (NORCO) 10-325 mg tablet 1 tablet 02-15 20:15: 00 02-15 19:52 :00 No [id number] 1{tbl} 1 tablet, Oral, ONCE, 1 dose, On Sat02/15/23 at 1515, Routine [facility] Melatonin 1 mg tablet 02-15 20:08: 23 02-15 00:00 :00 No 10mg Take 10 tablets by mouth every evening. [facility] trazodone HCl (DESYREL ORAL) 02-15 20:06: 33 02-15 00:00 :00 No 200mg Take 200 mg by mouth every evening. [facility] OLANZapine (ZYPREXA) 2.5 mg tablet 02-15 20:05: 48 02-15 00:00 :00 No 2.5mg Take 1 tablet by mouth in the morning and 1 tablet in the evening. [facility] hydrOXYzine (VISTARIL) 50 mg capsule 02-15 20:03: 04 02-15 00:00 :00 No 50mg Take 1 capsule by mouth every 4 (four) hours as needed for Itching. q 4-6 hours as needed [facility] dicyclomine (BENTYL) tablet 20 mg 02-15 19:30: 00 02-15 19:52 :00 No [id number] 20mg 20 mg, Oral, ONCE, 1 dose, On Sat02/15/23 at 1430, [facility] ibuprofen (IBU) tablet 800 mg 02-15 19:30: 00 02-15 19:52 :00 No [id number] 800mg 800 mg, Oral, ONCE, 1 dose, On Sat02/15/23 at 1430, [facility] losartan 50 mg tablet 02-15 13:44: 36 02-15 00:00 :00 No 50mg Take 1 tablet by mouth in the morning. [facility] Almyra-3-DHA -EPA-Fish Oil (FISH OIL) 1,000 mg (120 mg-180 mg) Cap 02-15 13:44: 15 02-15 00:00 :00 No 1000mg Take 1,000 mg by mouth daily. [facility] methocarbam oL 750 mg tablet 02-15 13:43: 47 02-15 00:00 :00 No 750mg Take 750 mg by mouth 3 (three) times daily. [facility] FENTanyl PF (SUBLIMAZE (PF)) injection 50 mcg 01-10 00:45: 00 01-09 23:46 :00 No 50ug 50 mcg, Slow IV Push, ONCE, 1 dose, On Sat01/09/22 at 1945, Routine [facility] ketorolac (TORADOL) injection 30 mg 01-09 23:45: 00 01-09 22:48 :00 No 30mg 30 mg, Slow IV Push, ONCE, 1 dose, On Sat01/09/22 at 1845, Routine [facility] aspirin chewable tablet 243 mg 12-14 14:00: 00 Yes 243mg 243 mg, Oral, DAILY, First dose on Sat12/14/21 at 0900, Until Discontinu ed, Routine [facility] ketorolac (TORADOL) injection 15 mg 12-14 08:15: 00 12-14 07:11 :00 No 15mg 15 mg, Slow IV Push, ONCE, 1 dose, On Sat12/14/21 at 0315, [facility] morpHINE (4 mg/mL) injection 4 mg 12-14 05:45: 00 12-14 04:52 :00 No 4mg 4 mg, Slow IV Push, ONCE, 1 dose, On 12/14/22 at 0045, STAT [facility] cefTRIAXone (ROCEPHIN) 1,000 mg in NaCl 0.9% (NS) 50 mL MINI-BAG 12-14 05:45: 00 12-14 05:30 :00 No 1000mg 1,000 mg, IV Piggyback, ONCE, 1 dose, On [place] 12/14/21 at 0045, Administer over 30 Minutes, 50 mL
Reas on for Anti-Infec tive: Documented Infection< br>Documen kaushik Infection Site: Urine
D uration of Therapy: Other (see Comments) [facility] NaCl 0.9% (NS) bolus infusion 1,000 mL 12-14 05:45: 00 12-14 07:20 :00 No 1000mL at 999 mL/hr, 1,000 mL, IV Infusion, ONCE, 1 dose, On [place] 12/14/21 at 0045, [facility] ondansetron (ZOFRAN (PF)) injection 4 mg 12-14 04:45: 00 12-14 03:50 :00 No 4mg 4 mg, Slow IV Push, ONCE, 1 dose, On Sat12/13/21 at 2345, [facility] FENTanyl PF (SUBLIMAZE (PF)) injection 50 mcg 12-14 04:45: 00 12-14 03:50 :00 No 50ug 50 mcg, Slow IV Push, ONCE, 1 dose, On Sat12/13/21 at 2345, Routine [facility] ALPRAZolam (XANAX) 1 mg tablet 12-14 02:22: 13 Yes 1mg Take 1 mg by mouth 2 (two) times daily. [facility] naproxen 500 mg tablet 12-14 00:00: 00 02-15 00:00 :00 No [id number] 500mg Take 1 tablet by mouth 2 (two) times daily with meals. [facility] cefpodoxime 200 mg tablet 12-14 00:00: 12-22 04:59 :00 No [id number] 200mg Take 1 tablet by mouth 2 (two) times daily for 7 days. [facility] LORazepam (ATIVAN) injection 1 mg 11-12 05:00: 00 11-12 04:01 :00 No 1mg 1 mg, Slow IV Push, ONCE, 1 dose, On 11/12/21 at 0000, STAT [facility] ketorolac (TORADOL) injection 30 mg 11-12 03:30: 00 11-12 02:26 :00 No 30mg 30 mg, Slow IV Push, ONCE, 1 dose, On 11/11/21 at 2230, Routine
crew member approving Restricted medication : DEE WANG [facility] nitroglycer in (NITROSTAT) sublingual tablet 0.4 mg 11-12 03:30: 00 11-12 02:26 :00 No .4mg 0.4 mg, Sublingual , ONCE, 1 dose, On 11/11/21 at 2230, [facility] aspirin E.C. (ECOTRIN) tablet 325 mg 11-12 03:30: 00 11-12 02:25 :00 No 325mg 325 mg, Oral, ONCE, 1 dose, On 11/11/21 at 2230, STAT [facility] morpHINE (4 mg/mL) injection 4 mg 11-12 02:30: 00 11-12 01:40 :00 No 4mg 4 mg, Slow IV Push, ONCE, 1 dose, On 11/11/21 at 2130, STAT [facility] ondansetron (ZOFRAN (PF)) injection 4 mg 11-12 02:30: 00 11-12 01:40 :00 No 4mg 4 mg, Slow IV Push, ONCE, 1 dose, On 11/11/21 at 2130, [facility] NaCl 0.9% (NS) bolus infusion 1,000 mL 11-12 02:30: 00 11-12 02:30 :00 No 1000mL at 999 mL/hr, 1,000 mL, IV Infusion, ONCE, 1 dose, On Sat11/11/21 at 2130, [facility] hydrOXYzine 50 mg tablet 11-11 00:00: 00 Yes [id number] 50mg Take 1 tablet by mouth every 8 (eight) hours as needed for Anxiety. [facility] ketorolac (TORADOL) injection 30 mg 09-12 05:45: 00 09-12 04:54 :00 No 30mg 30 mg, Slow IV Push, ONCE, 1 dose, On Sat09/11/21 at 2345, Routine
crew member approving Restricted medication : DEE WANG [facility] cefTRIAXone (ROCEPHIN) 1,000 mg in NaCl 0.9% (NS) 50 mL MINI-BAG 09-12 03:45: 00 09-12 03:41 :00 No 1000mg 1,000 mg, IV Piggyback, ONCE, 1 dose, On Sat09/11/21 at 2145, Administer over 30 Minutes, 50 mL
Reas on for Anti-Infec tive: Documented Infection< br>Documen kaushik Infection Site: Urine
D uration of Therapy: 7 days [facility] ondansetron (ZOFRAN (PF)) injection 4 mg 09-12 03:15: 00 09-12 02:39 :00 No 4mg 4 mg, Slow IV Push, ONCE, 1 dose, On Sat09/11/21 at 2115, [facility] morpHINE injection 4 mg 09-12 03:15: 00 09-12 02:39 :00 No 4mg 4 mg, Slow IV Push, ONCE, 1 dose, On Sat09/11/21 at 2115, STAT [facility] iopamidol (ISOVUE 370-500 mL) injection 120 mL 09-12 02:45: 00 09-12 03:00 :00 No [id number] 120mL 120 mL, Intravenou s, ONCE, 1 dose, On Sat09/11/21 at 2100, Routine [facility] sodium chloride (NS) injection 5 mL 09-12 01:33: 26 Yes 5mL 5 mL, Intravenou s, PRN, Starting on Sat09/11/21 at 1933, Until Discontinu ed, Routine, IV line flushing [facility] ibuprofen 600 mg tablet 09-11 00:00: 00 02-15 00:00 :00 No [id number] 600mg Take 1 tablet by mouth every 6 (six) hours as needed for Pain (scale 4-6). [facility] cefdinir 300 mg capsule 09-11 00:00: 00 09-19 04:59 :00 No [id number] 300mg Take 1 capsule by mouth 2 (two) times daily for 7 days. [facility] HYDROcodone -acetaminop hen (NORCO) 10-325 mg tablet 1 tablet 08-15 09:00: 00 08-15 07:59 :00 No 1{tbl} 1 tablet, Oral, ONCE, 1 dose, On Sat08/15/21 at 0300, Routine [facility] FENTanyl PF (SUBLIMAZE (PF)) injection 75 mcg 08-15 07:30: 00 08-15 06:42 :00 No 75ug 75 mcg, Intramuscu lar, ONCE, 1 dose, On Sat08/15/21 at 0130, Routine [facility] methocarbam oL (ROBAXIN) 500 mg tablet 08-15 00:00: 00 Yes [id number] 500mg Take 1 tablet by mouth every 6 (six) hours as needed for Pain (scale 7-10) (MUSCLE SPASM). [facility] traMADoL (ULTRAM) 50 mg tablet 08-15 00:00: 00 Yes [id number] 50mg Take 1 tablet by mouth every 6 (six) hours as needed for Pain (scale 7-10). Indication s: acute pain [facility] Nitrofurant oin&Nit. Macrocryst (MACROBID) 100 mg capsule 2022-0 2-08 00:00: 00 02-15 00:00 :00 No [id number] 100mg Take 1 capsule by mouth 2 (two) times daily. [facility] morpHINE injection 4 mg 2020-07 08:30: 00 05-28 07:50 :00 No 4mg 4 mg, Slow IV Push, ONCE, 1 dose, On 05/28/21 at 0230, [facility] maalox:diph enhydrAMINE :lidocaine 2 % viscous 1:1:1 ([facility]) oral suspension 15 mL 2020-07 08:00: 00 05-28 07:04 :00 No 15mL 15 mL, Oral, ONCE, 1 dose, On 05/28/21 at 0200, Routine [facility] FENTanyl PF (SUBLIMAZE (PF)) injection 50 mcg 2020-07 07:00: 00 05-28 06:02 :00 No 50ug 50 mcg, Slow IV Push, ONCE, 1 dose, On 05/28/21 at 0100, STAT [facility] famotidine (PEPCID (PF)) injection 20 mg 2020-07 07:00: 00 05-28 06:01 :00 No 20mg 20 mg, Slow IV Push, ONCE, 1 dose, On 05/28/21 at 0100, [facility] famotidine 20 mg tablet 2020-07 00:00: 00 06-13 05:59 :00 No [id number] 20mg Take 1 tablet by mouth 2 (two) times daily for 15 days. [facility] escitalopra m oxalate (LEXAPRO) tablet 10 mg 2020-07 003 02:00: 00 Yes 10mg 10 mg, Oral, QHS, First dose on 04/08/21 at 2100, Until Discontinu ed, Routine [facility] aspirin 81 mg chewable tablet 2020-07 0-03 00:00: 00 05-10 04:59 :00 No [id number] 81mg Take 1 tablet by mouth daily for 30 days. [facility] traZODone (DESYREL) tablet 200 mg 2020-07 22:00: 00 Yes 200mg 200 mg, Oral, QPM, First dose on 04/08/21 at 1700, Until Discontinu ed [facility] topiramate (TOPAMAX) tablet 200 mg 2020-07 22:00: 00 Yes 200mg 200 mg, Oral, QPM, First dose on 04/08/21 at 1700, Until Discontinu ed, Routine
crew member approving Restricted medication : ALEXEY ALEGRE [facility] OLANZapine (ZyPREXA) tablet 15 mg 2020-07 22:00: 00 Yes 15mg 15 mg, Oral, QPM, First dose on 04/08/21 at 1700, Until Discontinu ed, Routine [facility] melatonin (MELATIN) tablet 9 mg 2020-07 22:00: 00 Yes 9mg 9 mg, Oral, QPM, First dose on 04/08/21 at 1700, Until Discontinu ed [facility] methocarbam oL 750 mg tablet 2020-07 17:45: 33 Yes 750mg Take 750 mg by mouth 3 (three) times daily. [facility] Almyra-3-DHA -EPA-Fish Oil (FISH OIL) 1,000 mg (120 mg-180 mg) Cap 2020-07 17:45: 33 Yes 1000mg Take 1,000 mg by mouth daily. [facility] hydrOXYzine (VISTARIL) 50 mg capsule 2020-07 17:45: 33 Yes 50mg Take 50 mg by mouth every 4 (four) hours as needed for Itching. q 4-6 hours as needed [facility] losartan 50 mg tablet 2020-07 17:45: 33 Yes 50mg Take 50 mg by mouth daily. [facility] trazodone HCl (DESYREL ORAL) 2020-07 17:45: 33 Yes 200mg Take 200 mg by mouth every evening. [facility] escitalopra m oxalate (LEXAPRO) 5 mg tablet 2020-07 17:45: 33 Yes 10mg Take 10 mg by mouth at bedtime. [facility] Melatonin 1 mg tablet 2020-07 17:45: 33 Yes 10mg Take 10 mg by mouth every evening. [facility] topiramate (TOPAMAX) 200 mg tablet 2020-07 17:45: 33 Yes 200mg Take 200 mg by mouth every evening. [facility] bupropion HCl (WELLBUTRIN ORAL) 2020-07 17:45: 33 Yes 150mg Take 150 mg by mouth every morning. [facility] OLANZapine (ZYPREXA) 15 mg tablet 2020-07 17:45: 33 Yes 15mg Take 15 mg by mouth every evening. [facility] OLANZapine (ZYPREXA) 2.5 mg tablet 2020-07 17:45: 33 Yes 2.5mg Take 2.5 mg by mouth 2 (two) times daily. [facility] furosemide (LASIX) injection 20 mg 2020-07 14:30: 00 Yes 20mg 20 mg, Slow IV Push, Q12H, First dose on 04/08/21 at 0930, Until Discontinu ed, Routine [facility] losartan (COZAAR) tablet 50 mg 2020-07 14:00: 00 Yes 50mg 50 mg, Oral, DAILY, First dose on 04/08/21 at 0900, Until Discontinu ed, Routine [facility] buPROPion XL (WELLBUTRIN XL) tablet 150 mg 2020-07 14:00: 00 Yes 150mg 150 mg, Oral, DAILY, First dose on 04/08/21 at 0900, Until Discontinu ed [facility] aspirin chewable tablet 81 mg 2020-07 14:00: 00 Yes 81mg 81 mg, Oral, DAILY, First dose on 04/08/21 at 0900, Until Discontinu ed, Routine [facility] enoxaparin (LOVENOX) injection 40 mg 2020-07 14:00: 00 Yes 40mg 40 mg, Subcutaneo us, DAILY, First dose on 10/2/21 at 0900, Until Discontinu ed, Routine [facility] OLANZapine (ZyPREXA) tablet 2.5 mg 2020-07 13:00: 00 Yes 2.5mg 2.5 mg, Oral, BID, First dose on Sat04/08/21 at 0800, Until Discontinu ed, Routine [facility] methocarbam oL (ROBAXIN) tablet 750 mg 2020-07 13:00: 00 Yes 750mg 750 mg, Oral, TID, First dose on Sat04/08/21 at 0800, Until Discontinu ed, Routine [facility] LORazepam (ATIVAN) injection 0.5 mg 2020-07 04:07: 43 Yes .5mg 0.5 mg, Slow IV Push, PRN, 2 doses, Starting on Sat04/07/21 at 2307, Until Discontinu ed, Routine, Anxiety [facility] hydrOXYzine (ATARAX) tablet 50 mg 2020-07 02:51: 23 Yes 50mg 50 mg, Oral, Q4HPRN, Starting on Sat04/07/21 at 2151, Until Discontinu ed, Itching [facility] LORazepam (ATIVAN) tablet 0.5 mg 2020-07 02:05: 29 Yes .5mg 0.5 mg, Oral, PRN, 2 doses, Starting on Sat04/07/21 at 2105, Until Discontinu ed, Routine, Anxiety [facility] morpHINE injection 4 mg 2020-07 00:00: 00 04-07 22:58 :00 No 4mg 4 mg, Slow IV Push, ONCE, 1 dose, On Sat04/07/21 at 1900, STAT [facility] ondansetron (ZOFRAN (PF)) injection 4 mg 2020-07 0 00:00: 00 04-07 22:56 :00 No 4mg 4 mg, Slow IV Push, ONCE, 1 dose, On Sat04/07/21 at 1900, [facility] morpHINE injection 4 mg 2020-07 23:58: 03 04-08 23:57 :03 No 4mg 4 mg, Slow IV Push, Q4HPRN, Starting on Sat04/07/21 at 1858, Until 04/08/21 at 1857, Routine, Pain (scale 7-10) [facility] HYDROcodone -acetaminop hen (NORCO 5) 5-325 mg tablet 1 tablet 2020-07 23:58: 00 04-09 23:57 :00 No 1{tbl} 1 tablet, Oral, Q6HPRN, Starting on Sat04/07/21 at 1858, Until 04/09/21 at 1857, Routine, Pain (scale 4-6) [facility] acetaminoph en (TYLENOL) tablet 650 mg 2020-07 23:57: 57 Yes 650mg 650 mg, Oral, Q6HPRN, Starting on Sat04/07/21 at 1857, Until Discontinu ed, Routine, Pain (scale 1-3) [facility] aspirin tablet 325 mg 2020-07 23:00: 00 04-07 21:56 :00 No 325mg 325 mg, Oral, ONCE, 1 dose, On Sat04/07/21 at 1800, STAT [facility] nitroglycer in (NITROSTAT) sublingual tablet 0.4 mg 2020-07 21:51: 01 04-07 22:46 :00 No .4mg 0.4 mg, Sublingual , Q5MIN PRN, 3 doses, Starting on Sat04/07/21 at 1651, Until Discontinu ed, [facility], Chest pain [facility] fluconazole (DIFLUCAN) tablet 150 mg 01-12 14:00: 00 Yes 150mg 150 mg, Oral, DAILY, First dose on [place] 01/12/21 at 0900, Until Discontinu ed, [facility]
Re ason for Anti-Infec tive: Empiric Therapy for Suspected Infection< br>Empiric Therapy Site: HEENT
D uration of therapy: 72 hours [facility] cefTRIAXone (ROCEPHIN) 1,000 mg in NaCl 0.9% (NS) 50 mL MINI-BAG 01-12 10:15: 00 01-12 09:49 :00 No 1000mg 1,000 mg, IV Piggyback, ONCE, 1 dose, [place] 01/12/21 at 0515, 50 mL
Reas on for Anti-Infec tive: Empiric Therapy for Suspected Infection< br>Empiric Therapy Site: Urine
D uration of therapy: 72 hours [facility] hydrOXYzine (ATARAX) tablet 25 mg 01-12 10:15: 00 01-12 09:18 :00 No 25mg 25 mg, Oral, ONCE, 1 dose, [place] 01/12/21 at 0515, [facility] HYDROcodone -acetaminop hen (NORCO) 10-325 mg tablet 1 tablet 01-12 10:15: 00 01-12 09:18 :00 No 1{tbl} 1 tablet, Oral, ONCE, 1 dose, [place] 01/12/21 at 0515, Routine [facility] maalox:diph enhydrAMINE :lidocaine2 %viscous 1:1:1: suspension (COMPOUNDED ) 01-12 09:30: 00 01-12 08:25 :00 No 15mL 15 mL, Oral, ONCE, 1 dose, [place] 01/12/21 at 0430, Routine [facility] cephALEXin (KEFLEX) 500 mg capsule 01-12 00:00: 00 04-07 00:00 :00 No [id number] 500mg Take 1 capsule by mouth 3 (three) times daily. [facility] HYDROcodone -acetaminop hen (NORCO 5) 5-325 mg tablet 1 tablet 12-11 02:00: 00 12-11 01:29 :00 No 1{tbl} 1 tablet, Oral, ONCE, 1 dose, 12/10/20 at 2100, [facility] LORazepam (ATIVAN) injection 1 mg 12-11 00:30: 00 12-10 23:36 :00 No 1mg 1 mg, Slow IV Push, ONCE, 1 dose, 12/10/20 at 1930, STAT [facility] ketorolac (TORADOL) injection 30 mg 12-11 00:30: 00 12-10 23:36 :00 No 30mg 30 mg, Slow IV Push, ONCE, 1 dose, 12/10/20 at 1930, [facility]
Fa culty member approving Restricted medication : EMERGENCY ROOM, [facility] ondansetron (ZOFRAN (PF)) injection 4 mg 12-10 23:45: 00 12-10 22:46 :00 No 4mg 4 mg, Slow IV Push, ONCE, 1 dose, 12/10/20 at 1845, [facility] NaCl 0.9% (NS) bolus infusion 2,000 mL 12-10 22:45: 00 12-11 01:29 :00 No 2000mL at 999 mL/hr, 2,000 mL, IV Infusion, ONCE, 1 dose, 12/10/20 at 1745, [facility] proM[facility] 25 mg tablet 12-10 00:00: 00 04-07 00:00 :00 No [id number] 12.5mg Take 0.5 tablets by mouth every 6 (six) hours as needed for N/V unresponsi ve to Ondansetro n. [facility] morpHINE injection 4 mg 12-04 22:30: 00 12-04 21:37 :00 No 4mg 4 mg, Slow IV Push, ONCE, 1 dose, 12/04/20 at 1730, STAT [facility] losartan 50 mg tablet 12-04 22:03: 53 Yes 50mg Take 50 mg by mouth daily. [facility] LORazepam (ATIVAN) tablet 1 mg 12-04 21:45: 00 12-04 20:44 :00 No 1mg 1 mg, Oral, ONCE, 1 dose, 12/04/20 at 1645, [facility] ondansetron (ZOFRAN (PF)) injection 4 mg 12-04 21:15: 00 12-04 20:22 :00 No 4mg 4 mg, Slow IV Push, ONCE, 1 dose, [place] 12/04/20 at 1615, [facility] morpHINE injection 4 mg 12-04 21:15: 00 12-04 20:21 :00 No 4mg 4 mg, Slow IV Push, ONCE, 1 dose, [place] 12/04/20 at 1615, STAT [facility] ALPRAZolam (XANAX) 2 mg tablet 11-04 04:24: 19 11-03 00:00 :00 No 2mg Take 2 mg by mouth at bedtime. [facility] LORazepam (ATIVAN) injection 1 mg 11-04 04:00: 00 11-04 02:57 :00 No 1mg 1 mg, Slow IV Push, ONCE, 1 dose, [facility] 11/03/20 at 2300, STAT [facility] LORazepam (ATIVAN) tablet 1 mg 11-04 04:00: 00 11-04 02:57 :00 No 1mg 1 mg, Oral, ONCE, 1 dose, [facility] 11/03/20 at 2300, [facility] clonazePAM 0.5 mg tablet 11-01 00:00: 00 04-07 00:00 :00 No .5mg Take 0.5 mg by mouth. [facility] SERTraline 100 mg tablet 11-01 00:00: 00 04-07 00:00 :00 No 100mg Take 100 mg by mouth. [facility] busPIRone 10 mg tablet 10-18 00:00: 00 04-07 00:00 :00 No 10mg Take 10 mg by mouth. [facility] ibuprofen (IBU) tablet 800 mg 09-17 16:55: 00 09-17 16:57 :00 No 800mg 800 mg, Oral, ONCE, 1 dose, 09/17/20 at 1100, [facility] benzonatate 100 mg capsule 3-13 00:00: 00 04-07 00:00 :00 No [id number] 100mg Take 1 capsule by mouth 3 (three) times daily as needed for Cough. [facility] amoxicillin 500 mg capsule 09-17 00:00: 00 09-28 04:59 :00 No [id number] 500mg Take 1 capsule by mouth 3 (three) times daily for 10 days. [facility] HYDROcodone -acetaminop hen (NORCO) 10-325 mg tablet 1 tablet 09-07 07:45: 00 09-07 07:09 :00 No 1{tbl} 1 tablet, Oral, ONCE, 1 dose, Sat09/07/20 at 0145, Routine [facility] ondansetron (ZOFRAN-ODT ) disintegrat ing tablet 4 mg 09-07 07:15: 00 09-07 07:15 :00 No 4mg 4 mg, Oral, ONCE, 1 dose, Sat09/07/20 at 0130, Routine [facility] ibuprofen 800 mg tablet 09-07 00:00: 00 Yes [id number] 800mg Take 1 tablet by mouth every 8 (eight) hours as needed for Pain (scale 4-6). [facility] ketorolac (TORADOL) injection 30 mg 08-28 10:45: 00 08-28 09:48 :00 No 30mg 30 mg, Slow IV Push, ONCE, 1 dose, 08/28/20 at 0445, Routine
crew member approving Restricted medication : OLIVIA GARCIA [facility] ondansetron (ZOFRAN (PF)) injection 4 mg 08-28 10:00: 00 08-28 09:06 :00 No 4mg 4 mg, Slow IV Push, ONCE, 1 dose, 08/28/20 at 0400, [facility] FENTanyl PF (SUBLIMAZE (PF)) injection 50 mcg 08-28 10:00: 00 08-28 09:07 :00 No 50ug 50 mcg, Slow IV Push, ONCE, 1 dose, 08/28/20 at 0400, Routine [facility] maalox:diph enhydrAMINE :lidocaine 2 % viscous 1:1:1 (FIRST-MOUT [facility]) oral suspension 15 mL 08-28 10:00: 00 08-28 09:07 :00 No 15mL 15 mL, Oral, ONCE, 1 dose, 08/28/20 at 0400, Routine [facility] iohexol (OMNIPAQUE 350 BULK-100 mL) injection 120 mL 08-28 09:30: 00 08-28 09:11 :00 No 120mL 120 mL, Intravenou s, ONCE, 1 dose, 08/28/20 at 0330, Routine [facility] dicyclomine 20 mg tablet 08-28 00:00: 00 04-07 00:00 :00 No [id number] 20mg Take 1 tablet by mouth every 6 (six) hours as needed for Abdominal pain. [facility] ondansetron (ZOFRAN) 4 mg tablet 08-28 00:00: 00 09-17 00:00 :00 No [id number] 4mg Take 1 tablet by mouth every 8 (eight) hours as needed for Nausea and Vomiting (N/V). [facility] FENTanyl PF (SUBLIMAZE (PF)) injection 25 mcg 08-14 19:00: 00 08-14 18:09 :00 No 25ug 25 mcg, Slow IV Push, ONCE, 1 dose, 08/14/20 at 1300, STAT [facility] ondansetron (ZOFRAN (PF)) injection 4 mg 08-14 19:00: 00 08-14 18:10 :00 No 4mg 4 mg, Slow IV Push, ONCE, 1 dose, 08/14/20 at 1300, [place] [facility] ketorolac (TORADOL) injection 15 mg 08-14 19:0008-14 18:09 :00 No 15mg 15 mg, Slow IV Push, ONCE, 1 dose, 08/14/20 at 1300, [place]
Fa [facility] member approving Restricted medication : BEST TAYLOR [facility] piperacilli n-tazobacta m (ZOSYN) 3.375 g in NaCl 0.9% (NS) 100 mL MINI-BAG 08-14 19:00: 08-14 18:38 :00 No 3.375g 3.375 g, IV Piggyback, ONCE, 1 dose, 08/14/20 at 1300, 100 mL
Reas on for Anti-Infec tive: Documented Infection< br>Documen kaushik Infection Site: Urine
D uration of Therapy: Other (see Comments) [facility] NaCl 0.9% (NS) bolus infusion 1,000 mL 08-14 19:00: 00 08-14 19:00 :00 No 1000mL at 999 mL/hr, 1,000 mL, IV Infusion, ONCE, 1 dose, 08/14/20 at 1300, STAT [facility] guaiFENesin 100 mg/5 mL solution 08-14 00:00: 00 04-07 00:00 :00 No [id number] 100mg Take 5 mL by mouth every 4 (four) hours. [facility] ondansetron 4 mg disintegrat ing tablet 08-14 00:00: 00 09-17 00:00 :00 No [id number] 4mg Take 1 tablet by mouth every 8 (eight) hours as needed for Nausea and Vomiting (N/V). [facility] ibuprofen 600 mg tablet 08-14 00:00: 00 09-17 00:00 :00 No [id number] 600mg Take 1 tablet by mouth every 6 (six) hours as needed for Pain (scale 4-6). [facility] amoxicillin -clavulanat e 875-125 mg per tablet 08-14 00:00: 00 08-25 05:59 :00 No [id number] 1{tbl} Take 1 tablet by mouth 2 (two) times daily for 10 days. [facility] fluconazole (DIFLUCAN) tablet 150 mg 08-11 15:00: 00 Yes 150mg 150 mg, Oral, DAILY, First dose on [place] 08/11/20 at 0900, Until Discontinu ed, [place]
Re ason for Anti-Infec tive: Documented Infection< br>Documen kaushik Infection Site: Urine
D uration of Therapy: Other (see Comments) [facility] HYDROcodone -acetaminop hen (NORCO) 10-325 mg tablet 1 tablet 08-11 05:30: 00 08-11 05:08 :00 No 1{tbl} 1 tablet, Oral, ONCE NOW, 1 dose, 08/10/20 at 2330, Routine [facility] FENTanyl PF (SUBLIMAZE (PF)) injection 25 mcg 08-11 04:30: 00 08-11 03:19 :00 No 25ug 25 mcg, Slow IV Push, ONCE, 1 dose, 08/10/20 at 2230, STAT [facility] ondansetron (ZOFRAN (PF)) injection 4 mg 08-11 04:15: 00 08-11 03:19 :00 No 4mg 4 mg, Slow IV Push, ONCE, 1 dose, 08/10/20 at 2215, [facility] [facility] NaCl 0.9% (NS) bolus infusion 1,000 mL 08-11 01:45: 00 08-11 03:45 :00 No 1000mL at 999 mL/hr, 1,000 mL, IV Infusion, ONCE, 1 dose, 08/10/20 at 1945, STAT [facility] ketorolac (TORADOL) injection 30 mg 08-11 01:45: 00 08-11 02:31 :00 No 30mg 30 mg, Slow IV Push, ONCE, 1 dose, 08/10/20 at 1945, [place]
Fa cult[facility] member approving Restricted medication : BEST TAYLOR [facility] traMADoL (ULTRAM) 50 mg tablet 08-10 00:00: 00 09-17 00:00 :00 No [id number] 50mg Take 1 tablet by mouth every 6 (six) hours as needed for Pain (scale 7-10). Indication s: acute pain [facility] ibuprofen 800 mg tablet 08-07 00:00: 00 09-17 00:00 :00 No [id number] 800mg Take 1 tablet by mouth every 8 (eight) hours. [facility] amoxicillin 500 mg capsule 08-07 00:00: 00 09-17 00:00 :00 No [id number] 500mg Take 1 capsule by mouth 3 (three) times daily. [facility] traMADoL 50 mg tablet 08-07 00:00: 00 09-17 00:00 :00 No [id number] 50mg Take 1 tablet by mouth every 6 (six) hours as needed for Pain (scale 4-6). Indication s: acute pain [facility] LORazepam (ATIVAN) tablet 1 mg 2019-07 03:15: 00 07-01 02:21 :00 No 1mg 1 mg, Oral, ONCE, 1 dose, [place] 06/30/20 at 2115, [place] [facility] FENTanyl PF (SUBLIMAZE (PF)) injection 50 mcg 2019-07 02:30: 00 07-01 01:39 :00 No 50ug 50 mcg, Slow IV Push, ONCE, 1 dose, [place] 06/30/20 at 2030, Routine [facility] ondansetron (ZOFRAN-ODT ) disintegrat ing tablet 4 mg 2019-07 01:15: 00 07-01 00:52 :00 No 4mg 4 mg, Oral, ONCE, 1 dose, [place] 06/30/20 at 1915, Routine [facility] ketorolac (TORADOL) injection 30 mg 2019-07 01:15: 00 07-01 00:52 :00 No 30mg 30 mg, Slow IV Push, ONCE, 1 dose, [place] 06/30/20 at 1915, [place]
Fa [facility] member approving Restricted medication : AILYN ABDIAS [facility] albuterol 90 mcg/actuati on inhaler 2019-07 00:00: 04-07 00:00 :00 No [id number] 2{puff} Inhale 2 Puffs every 4 (four) hours as needed for Wheezing or Shortness of Breath. [facility] hydrOXYzine 25 mg tablet 2019-07 00:00: 09-17 00:00 :00 No [id number] 25mg Take 1 tablet by mouth every 6 (six) hours as needed for Anxiety. [facility] naproxen sodium (ANAPROX DS) 550 mg tablet 2019-07 00:00: 00 04-07 00:00 :00 No [id number] 550mg Take 1 tablet by mouth 2 (two) times daily with meals. [facility] methylPREDN ISolone (MEDROL, BEBETO,) 4 mg tablets 2019-07 00:00: 09-17 00:00 :00 No [id number] Take by mouth SEE-INSTRU CTIONS. follow package directions [facility] methocarbam oL 500 mg tablet 2019-07 00:00: 00 07-04 05:59 :00 No [id number] 500mg Take 1 tablet by mouth 3 (three) times daily for 5 days. [facility] proMETHazin e (PHENERGAN) tablet 25 mg 2019-07 04:45: 00 06-13 03:37 :00 No 25mg 25 mg, Oral, ONCE, 1 dose, 06/12/20 at 2245, [place] [facility] ondansetron (ZOFRAN (PF)) injection 4 mg 2019-07 03:00: 00 06-13 01:59 :00 No 4mg 4 mg, Slow IV Push, ONCE, 1 dose, 06/12/20 at 2100, [place] [facility] ketorolac (TORADOL) injection 15 mg 2019-07 03:00: 00 06-13 01:58 :00 No 15mg 15 mg, Intramuscu lar, ONCE, 1 dose, 06/12/20 at 2100, [place]
Fa [facility] member approving Restricted medication : LEEANNE WISE [facility] morpHINE injection 4 mg 2019-07 01:30: 00 06-13 00:41 :00 No 4mg 4 mg, Slow IV Push, ONCE, 1 dose, 06/12/20 at 1930, STAT [facility] ondansetron (ZOFRAN (PF)) injection 4 mg 2019-07 00:45: 00 06-13 00:41 :00 No 4mg 4 mg, Slow IV Push, ONCE, 1 dose, 06/12/20 at 1845, [facility] NaCl 0.9% (NS) bolus infusion 1,000 mL 2019-07 23:45: 00 06-13 03:54 :00 No 1000mL at 999 mL/hr, 1,000 mL, IV Infusion, ONCE, 1 dose, 06/12/20 at 1745, [place] [facility] dicyclomine 20 mg tablet 2019-07 00:00: 00 04-07 00:00 :00 No [id number] 20mg Take 1 tablet by mouth 4 (four) times daily as needed for Abdominal pain. [facility] proMETHazin e 25 mg tablet 2019-07 00:00: 00 09-17 00:00 :00 No [id number] 25mg Take 1 tablet by mouth every 6 (six) hours as needed for Nausea and Vomiting (N/V). [facility] famotidine 20 mg tablet 2019-07 00:00: 00 06-27 05:59 :00 No [id number] 20mg Take 1 tablet by mouth at bedtime for 14 days. [facility] haloperidol lactate (HALDOL) injection 2.5 mg 2019-07 01:00: 00 05-16 23:51 :00 No 2.5mg 2.5 mg, Intravenou s, ONCE, 1 dose, 05/16/20 at 1900, STAT [facility] NaCl 0.9% (NS) bolus infusion 1,000 mL 2019-07 23:45: 00 05-17 00:54 :00 No 1000mL at 999 mL/hr, 1,000 mL, IV Infusion, ONCE, 1 dose, [facility] 05/16/20 at 1745, [place] [facility] proMETHazin e (PHENERGAN) 25 mg suppository 2019-07 00:00: 00 Yes [id number] 25mg Insert 1 Suppositor y into rectum every 4 (four) hours as needed for Nausea and Vomiting (N/V). [facility] ondansetron (ZOFRAN (PF)) injection 4 mg 2019-07 07:30: 00 05-15 06:26 :00 No 4mg 4 mg, Slow IV Push, ONCE, 1 dose, [place] 05/15/20 at 0130, [facility] iohexol (OMNIPAQUE 350 BULK-100 mL) injection 120 mL 2019-07 07:00: 00 05-15 06:52 :00 No 120mL 120 mL, Intravenou s, ONCE, 1 dose, [place] 05/15/20 at 0100, Routine [facility] ondansetron (ZOFRAN (PF)) injection 4 mg 2019-07 06:30: 00 05-15 05:52 :00 No 4mg 4 mg, Slow IV Push, ONCE, 1 dose, [place] 05/15/20 at 0030, [facility] AL[facility] (XANAX) 2 mg tablet 2019-07 05:30: 59 Yes 2mg Take 2 mg by mouth at bedtime. [facility] zolpidem 5 mg tablet 12-20 00:00: 00 04-07 00:00 :00 No 5mg Take 5 mg by mouth. [facility] Immunizations Ordered Immunization Name Filled [...] Systolic blood pressure 2023-10-11 05:00:00 126 mm[Hg] [facility] Diastolic blood pressure 2023-10-11 05:00:00 87 mm[Hg] [facility] Heart rate 2023-10-11 05:00:00 94 /min [facility] Respiratory rate 2023-10-11 05:00:00 22 /min [facility] Oxygen saturation in Arterial blood by Pulse oximetry 2023-10-11 05:00:00 98 /min [facility] Body temperature 2023-10-11 02:28:00 37.22 Latanya [facility] Body height 2023-10-11 02:28:00 157.5 cm [facility] Body weight 2023-10-11 02:28:00 99.791 kg [facility] BMI 2023-10-11 02:28:00 40.24 kg/m2 [facility] Systolic blood pressure 2023-07-02 04:10:00 147 mm[Hg] [facility] Diastolic blood pressure 2023-07-02 04:10:00 89 mm[Hg] [facility] Heart rate 2023-07-02 04:10:00 73 /min [facility] Respiratory rate 2023-07-02 04:10:00 19 /min [facility] Oxygen saturation in Arterial blood by Pulse oximetry 2023-07-02 04:10:00 98 /min [facility] Body temperature 2023-07-02 01:47:00 36.78 Latanya [facility] Body height 2023-07-02 01:47:00 160 cm [facility] Body weight 2023-07-02 01:47:00 97.659 kg [facility] BMI 2023-07-02 01:47:00 38.14 kg/m2 [facility] Systolic blood pressure 2023-05-10 01:00:00 133 mm[Hg] [facility] Diastolic blood pressure 2023-05-10 01:00:00 81 mm[Hg] [facility] Heart rate 2023-05-10 01:00:00 64 /min [facility] Respiratory rate 2023-05-10 01:00:00 21 /min [facility] Oxygen saturation in Arterial blood by Pulse oximetry 2023-05-10 01:00:00 96 /min [facility] Body temperature 2023-05-09 22:43:00 36.67 Latanya [facility] Body height 2023-05-09 22:43:00 157.5 cm [facility] Body weight 2023-05-09 22:43:00 99.791 kg [facility] BMI 2023-05-09 22:43:00 40.24 kg/m2 [facility] Systolic blood pressure 2023-05-01 01:00:00 107 mm[Hg] [facility] Diastolic blood pressure 2023-05-01 01:00:00 80 mm[Hg] [facility] Heart rate 2023-05-01 01:00:00 80 /min [facility] Body temperature 2023-05-01 01:00:00 37.06 Latanya [facility] Respiratory rate 2023-05-01 01:00:00 16 /min [facility] Oxygen saturation in Arterial blood by Pulse oximetry 2023-05-01 01:00:00 98 /min [facility] Body height 2023-04-30 22:16:00 157.5 cm [facility] Body weight 2023-04-30 22:16:00 95.255 kg [facility] BMI 2023-04-30 22:16:00 38.41 kg/m2 [facility] Systolic blood pressure 2023-04-17 02:00:00 147 mm[Hg] [facility] Diastolic blood pressure 2023-04-17 02:00:00 83 mm[Hg] [facility] Heart rate 2023-04-17 02:00:00 90 /min [facility] Respiratory rate 2023-04-17 02:00:00 18 /min [facility] Oxygen saturation in Arterial blood by Pulse oximetry 2023-04-17 02:00:00 96 /min [facility] Body temperature 2023-04-17 01:33:00 36.78 Latanya [facility] Body height 2023-04-17 01:33:00 157.5 cm [facility] Body weight 2023-04-17 01:33:00 99.791 kg [facility] BMI 2023-04-17 01:33:00 40.24 kg/m2 [facility] Systolic blood pressure 2023-04-09 01:04:48 135 mm[Hg] [facility] Diastolic blood pressure 2023-04-09 01:04:48 84 mm[Hg] [facility] Heart rate 2023-04-09 01:04:48 67 /min [facility] Respiratory rate 2023-04-09 01:04:48 16 /min [facility] Oxygen saturation in Arterial blood by Pulse oximetry 2023-04-09 01:04:48 99 /min [facility] Body temperature 2023-04-08 22:16:00 36.67 Latanya [facility] Body height 2023-04-08 22:16:00 157.5 cm [facility] Body weight 2023-04-08 22:16:00 99.791 kg [facility] BMI 2023-04-08 22:16:00 40.24 kg/m2 [facility] Systolic blood pressure 2023-03-10 05:00:00 156 mm[Hg] [facility] Diastolic blood pressure 2023-03-10 05:00:00 94 mm[Hg] [facility] Heart rate 2023-03-10 05:00:00 75 /min [facility] Respiratory rate 2023-03-10 05:00:00 21 /min [facility] Oxygen saturation in Arterial blood by Pulse oximetry 2023-03-10 05:00:00 97 /min [facility] Body temperature 2023-03-10 01:20:00 36.72 Latanya [facility] Body height 2023-03-10 01:20:00 157.5 cm [facility] Body weight 2023-03-10 01:20:00 100.381 kg [facility] BMI 2023-03-10 01:20:00 40.48 kg/m2 [facility] Systolic blood pressure 2023-03-02 06:00:00 126 mm[Hg] [facility] Diastolic blood pressure 2023-03-02 06:00:00 79 mm[Hg] [facility] Heart rate 2023-03-02 06:00:00 69 /min [facility] Respiratory rate 2023-03-02 06:00:00 23 /min [facility] Oxygen saturation in Arterial blood by Pulse oximetry 2023-03-02 06:00:00 94 /min [facility] Body temperature 2023-03-02 00:34:00 37.28 Latanya [facility] Body height 2023-03-02 00:34:00 157.5 cm [facility] Body weight 2023-03-02 00:34:00 99.791 kg [facility] BMI 2023-03-02 00:34:00 40.24 kg/m2 [facility] Systolic blood pressure 2023-02-18 06:46:00 126 mm[Hg] [facility] Diastolic blood pressure 2023-02-18 06:46:00 77 mm[Hg] [facility] Heart rate 2023-02-18 06:46:00 79 /min [facility] Respiratory rate 2023-02-18 06:46:00 16 /min [facility] Oxygen saturation in Arterial blood by Pulse oximetry 2023-02-18 06:46:00 95 /min [facility] Body temperature 2023-02-18 03:55:00 36.72 Latanya [facility] Body height 2023-02-18 03:55:00 157.5 cm [facility] Body weight 2023-02-18 03:55:00 102.331 kg [facility] BMI 2023-02-18 03:55:00 41.26 kg/m2 [facility] Systolic blood pressure 2023-02-17 16:20:00 113 mm[Hg] [facility] Diastolic blood pressure 2023-02-17 16:20:00 65 mm[Hg] [facility] Heart rate 2023-02-17 16:20:00 65 /min [facility] Body temperature 2023-02-17 16:20:00 36.83 Latanya [facility] Respiratory rate 2023-02-17 16:20:00 16 /min [facility] Oxygen saturation in Arterial blood by Pulse oximetry 2023-02-17 16:20:00 97 /min [facility] Body weight 2023-02-17 08:50:00 99.973 kg [facility] BMI 2023-02-17 08:50:00 40.31 kg/m2 [facility] Body height 2023-02-16 01:19:00 157.5 cm [facility] Systolic blood pressure 2022-01-10 01:24:00 120 mm[Hg] [facility] Diastolic blood pressure 2022-01-10 01:24:00 76 mm[Hg] [facility] Heart rate 2022-01-10 01:24:00 73 /min [facility] Respiratory rate 2022-01-10 01:24:00 16 /min [facility] Oxygen saturation in Arterial blood by Pulse oximetry 2022-01-10 01:24:00 96 /min [facility] Body weight 2022-01-09 21:39:00 104.327 kg [facility] BMI 2022-01-09 21:39:00 42.07 kg/m2 [facility] Systolic blood pressure 2021-12-14 07:22:00 121 mm[Hg] [facility] Diastolic blood pressure 2021-12-14 07:22:00 86 mm[Hg] [facility] Heart rate 2021-12-14 07:22:00 80 /min [facility] Respiratory rate 2021-12-14 07:22:00 17 /min [facility] Oxygen saturation in Arterial blood by Pulse oximetry 2021-12-14 07:22:00 96 /min [facility] Body temperature 2021-12-14 03:06:00 36.72 Latanya [facility] Body height 2021-12-14 03:06:00 157.5 cm [facility] Body weight 2021-12-14 03:06:00 95.255 kg [facility] BMI 2021-12-14 03:06:00 38.41 kg/m2 [facility] Systolic blood pressure 2021-11-12 04:15:00 112 mm[Hg] [facility] Diastolic blood pressure 2021-11-12 04:15:00 75 mm[Hg] [facility] Heart rate 2021-11-12 04:15:00 92 /min [facility] Body temperature 2021-11-12 04:15:00 36.44 Latanya [facility] Respiratory rate 2021-11-12 04:15:00 18 /min [facility] Oxygen saturation in Arterial blood by Pulse oximetry 2021-11-12 04:15:00 98 /min [facility] Body height 2021-11-12 00:41:00 157.5 cm [facility] Body weight 2021-11-12 00:41:00 95.255 kg [facility] BMI 2021-11-12 00:41:00 38.41 kg/m2 [facility] Systolic blood pressure 2021-09-12 01:31:00 142 mm[Hg] [facility] Diastolic blood pressure 2021-09-12 01:31:00 80 mm[Hg] [facility] Heart rate 2021-09-12 01:31:00 78 /min [facility] Body temperature 2021-09-12 01:31:00 36.72 Latanya [facility] Respiratory rate 2021-09-12 01:31:00 18 /min [facility] Body height 2021-09-12 01:31:00 157.5 cm [facility] Body weight 2021-09-12 01:31:00 99.791 kg [facility] BMI 2021-09-12 01:31:00 40.24 kg/m2 [facility] Oxygen saturation in Arterial blood by Pulse oximetry 2021-09-12 01:31:00 97 /min [facility] Systolic blood pressure 2021-08-15 08:20:00 120 mm[Hg] [facility] Diastolic blood pressure 2021-08-15 08:20:00 74 mm[Hg] [facility] Heart rate 2021-08-15 08:20:00 69 /min [facility] Respiratory rate 2021-08-15 08:20:00 20 /min [facility] Oxygen saturation in Arterial blood by Pulse oximetry 2021-08-15 08:20:00 96 /min [facility] Body temperature 2021-08-15 05:34:00 36.22 Latanya [facility] Body height 2021-08-15 05:34:00 157.5 cm [facility] Body weight 2021-08-15 05:34:00 99.791 kg [facility] BMI 2021-08-15 05:34:00 40.24 kg/m2 [facility] Systolic blood pressure 2021-05-28 10:00:00 122 mm[Hg] [facility] Diastolic blood pressure 2021-05-28 10:00:00 78 mm[Hg] [facility] Heart rate 2021-05-28 10:00:00 75 /min [facility] Respiratory rate 2021-05-28 10:00:00 20 /min [facility] Oxygen saturation in Arterial blood by Pulse oximetry 2021-05-28 10:00:00 99 /min [facility] Body temperature 2021-05-28 05:21:00 36.11 Latanya [facility] Body height 2021-05-28 05:21:00 157.5 cm [facility] Body weight 2021-05-28 05:21:00 99.791 kg [facility] BMI 2021-05-28 05:21:00 40.24 kg/m2 [facility] Systolic blood pressure 2021-04-08 21:55:00 110 mm[Hg] [facility] Diastolic blood pressure 2021-04-08 21:55:00 80 mm[Hg] [facility] Heart rate 2021-04-08 21:55:00 70 /min [facility] Body temperature 2021-04-08 21:55:00 36.28 Latanya [facility] Respiratory rate 2021-04-08 21:55:00 16 /min [facility] Oxygen saturation in Arterial blood by Pulse oximetry 2021-04-08 21:55:00 94 /min [facility] Body height 2021-04-08 03:00:00 157.5 cm [facility] Body weight 2021-04-08 03:00:00 105.688 kg [facility] BMI 2021-04-08 03:00:00 42.62 kg/m2 [facility] Systolic blood pressure 2021-01-12 09:00:00 147 mm[Hg] [facility] Diastolic blood pressure 2021-01-12 09:00:00 71 mm[Hg] [facility] Heart rate 2021-01-12 09:00:00 103 /min [facility] Respiratory rate 2021-01-12 09:00:00 18 /min [facility] Oxygen saturation in Arterial blood by Pulse oximetry 2021-01-12 09:00:00 97 /min [facility] Body temperature 2021-01-12 07:48:00 37.06 Latanya [facility] Body height 2021-01-12 07:48:00 157.5 cm [facility] Body weight 2021-01-12 07:48:00 102.513 kg [facility] BMI 2021-01-12 07:48:00 41.34 kg/m2 [facility] Systolic blood pressure 2020-12-11 01:30:00 136 mm[Hg] [facility] Diastolic blood pressure 2020-12-11 01:30:00 88 mm[Hg] [facility] Heart rate 2020-12-11 01:30:00 99 /min [facility] Respiratory rate 2020-12-11 01:30:00 28 /min [facility] Oxygen saturation in Arterial blood by Pulse oximetry 2020-12-11 01:30:00 97 /min [facility] Body temperature 2020-12-10 22:11:00 36.78 Latanya [facility] Body weight 2020-12-10 22:11:00 99.791 kg [facility] BMI 2020-12-10 22:11:00 40.24 kg/m2 [facility] Systolic blood pressure 2020-12-04 21:30:00 126 mm[Hg] [facility] Diastolic blood pressure 2020-12-04 21:30:00 79 mm[Hg] [facility] Heart rate 2020-12-04 21:30:00 91 /min [facility] Respiratory rate 2020-12-04 21:30:00 20 /min [facility] Oxygen saturation in Arterial blood by Pulse oximetry 2020-12-04 21:30:00 96 /min [facility] Body temperature 2020-12-04 19:49:00 37.06 Latanya [facility] Body height 2020-12-04 19:49:00 157.5 cm [facility] Body weight 2020-12-04 19:49:00 99.791 kg [facility] BMI 2020-12-04 19:49:00 40.24 kg/m2 [facility] Systolic blood pressure 2020-11-04 01:42:00 142 mm[Hg] [facility] Diastolic blood pressure 2020-11-04 01:42:00 100 mm[Hg] [facility] Heart rate 2020-11-04 01:42:00 109 /min [facility] Body temperature 2020-11-04 01:42:00 36.78 Latanya [facility] Respiratory rate 2020-11-04 01:42:00 20 /min [facility] Body weight 2020-11-04 01:42:00 99.791 kg [facility] BMI 2020-11-04 01:42:00 40.24 kg/m2 [facility] Oxygen saturation in Arterial blood by Pulse oximetry 2020-11-04 01:42:00 98 /min [facility] Systolic blood pressure 2020-09-17 15:52:00 138 mm[Hg] [facility] Diastolic blood pressure 2020-09-17 15:52:00 94 mm[Hg] [facility] Heart rate 2020-09-17 15:52:00 98 /min [facility] Body temperature 2020-09-17 15:52:00 36.94 Latanya [facility] Respiratory rate 2020-09-17 15:52:00 20 /min [facility] Body weight 2020-09-17 15:52:00 95.255 kg [facility] BMI 2020-09-17 15:52:00 38.41 kg/m2 [facility] Oxygen saturation in Arterial blood by Pulse oximetry 2020-09-17 15:52:00 97 /min [facility] Systolic blood pressure 2020-09-17 15:52:00 138 mm[Hg] [facility] Diastolic blood pressure 2020-09-17 15:52:00 94 mm[Hg] [facility] Heart rate 2020-09-17 15:52:00 98 /min [facility] Body temperature 2020-09-17 15:52:00 36.94 Latanya [facility] Respiratory rate 2020-09-17 15:52:00 20 /min [facility] Body weight 2020-09-17 15:52:00 95.255 kg [facility] BMI 2020-09-17 15:52:00 38.41 kg/m2 [facility] Oxygen saturation in Arterial blood by Pulse oximetry 2020-09-17 15:52:00 97 /min [facility] Systolic blood pressure 2020-09-07 06:35:00 123 mm[Hg] [facility] Diastolic blood pressure 2020-09-07 06:35:00 56 mm[Hg] [facility] Heart rate 2020-09-07 06:35:00 97 /min [facility] Body temperature 2020-09-07 06:35:00 36.28 Latanya [facility] Respiratory rate 2020-09-07 06:35:00 18 /min [facility] Body weight 2020-09-07 06:35:00 99.791 kg [facility] BMI 2020-09-07 06:35:00 40.24 kg/m2 [facility] Oxygen saturation in Arterial blood by Pulse oximetry 2020-09-07 06:35:00 98 /min [facility] Systolic blood pressure 2020-09-07 06:35:00 123 mm[Hg] [facility] Diastolic blood pressure 2020-09-07 06:35:00 56 mm[Hg] [facility] Heart rate 2020-09-07 06:35:00 97 /min [facility] Body temperature 2020-09-07 06:35:00 36.28 Latanya [facility] Respiratory rate 2020-09-07 06:35:00 18 /min [facility] Body weight 2020-09-07 06:35:00 99.791 kg [facility] BMI 2020-09-07 06:35:00 40.24 kg/m2 [facility] Oxygen saturation in Arterial blood by Pulse oximetry 2020-09-07 06:35:00 98 /min [facility] Systolic blood pressure 2020-08-28 09:00:00 132 mm[Hg] [facility] Diastolic blood pressure 2020-08-28 09:00:00 87 mm[Hg] [facility] Heart rate 2020-08-28 09:00:00 90 /min [facility] Respiratory rate 2020-08-28 09:00:00 20 /min [facility] Oxygen saturation in Arterial blood by Pulse oximetry 2020-08-28 09:00:00 97 /min [facility] Body temperature 2020-08-28 07:59:00 36.72 Latanya [facility] Body height 2020-08-28 07:59:00 157.5 cm [facility] Body weight 2020-08-28 07:59:00 99.791 kg [facility] BMI 2020-08-28 07:59:00 40.24 kg/m2 [facility] Systolic blood pressure 2020-08-28 09:00:00 132 mm[Hg] [facility] Diastolic blood pressure 2020-08-28 09:00:00 87 mm[Hg] [facility] Heart rate 2020-08-28 09:00:00 90 /min [facility] Respiratory rate 2020-08-28 09:00:00 20 /min [facility] Oxygen saturation in Arterial blood by Pulse oximetry 2020-08-28 09:00:00 97 /min [facility] Body temperature 2020-08-28 07:59:00 36.72 Latanya [facility] Body height 2020-08-28 07:59:00 157.5 cm [facility] Body weight 2020-08-28 07:59:00 99.791 kg [facility] BMI 2020-08-28 07:59:00 40.24 kg/m2 [facility] Systolic blood pressure 2020-08-14 19:40:00 135 mm[Hg] [facility] Diastolic blood pressure 2020-08-14 19:40:00 100 mm[Hg] [facility] Heart rate 2020-08-14 19:40:00 68 /min [facility] Body temperature 2020-08-14 19:40:00 37.11 Latanya [facility] Respiratory rate 2020-08-14 19:40:00 19 /min [facility] Oxygen saturation in Arterial blood by Pulse oximetry 2020-08-14 19:40:00 99 /min [facility] Body height 2020-08-14 17:41:00 157.5 cm [facility] Body weight 2020-08-14 17:41:00 99.791 kg [facility] BMI 2020-08-14 17:41:00 40.24 kg/m2 [facility] Systolic blood pressure 2020-08-14 19:40:00 135 mm[Hg] [facility] Diastolic blood pressure 2020-08-14 19:40:00 100 mm[Hg] [facility] Heart rate 2020-08-14 19:40:00 68 /min [facility] Body temperature 2020-08-14 19:40:00 37.11 Latanya [facility] Respiratory rate 2020-08-14 19:40:00 19 /min [facility] Oxygen saturation in Arterial blood by Pulse oximetry 2020-08-14 19:40:00 99 /min [facility] Body height 2020-08-14 17:41:00 157.5 cm [facility] Body weight 2020-08-14 17:41:00 99.791 kg [facility] BMI 2020-08-14 17:41:00 40.24 kg/m2 [facility] Systolic blood pressure 2020-08-11 04:00:00 106 mm[Hg] [facility] Diastolic blood pressure 2020-08-11 04:00:00 92 mm[Hg] [facility] Heart rate 2020-08-11 04:00:00 90 /min [facility] Respiratory rate 2020-08-11 04:00:00 16 /min [facility] Oxygen saturation in Arterial blood by Pulse oximetry 2020-08-11 04:00:00 99 /min [facility] Body temperature 2020-08-11 03:12:56 37.72 Latanya [facility] Body height 2020-08-11 00:19:00 157.5 cm [facility] Body weight 2020-08-11 00:19:00 99.791 kg [facility] BMI 2020-08-11 00:19:00 40.24 kg/m2 [facility] Systolic blood pressure 2020-08-11 04:00:00 106 mm[Hg] [facility] Diastolic blood pressure 2020-08-11 04:00:00 92 mm[Hg] [facility] Heart rate 2020-08-11 04:00:00 90 /min [facility] Respiratory rate 2020-08-11 04:00:00 16 /min [facility] Oxygen saturation in Arterial blood by Pulse oximetry 2020-08-11 04:00:00 99 /min [facility] Body temperature 2020-08-11 03:12:56 37.72 Latanya [facility] Body height 2020-08-11 00:19:00 157.5 cm [facility] Body weight 2020-08-11 00:19:00 99.791 kg [facility] BMI 2020-08-11 00:19:00 40.24 kg/m2 [facility] Systolic blood pressure 2020-08-07 13:16:00 100 mm[Hg] [facility] Diastolic blood pressure 2020-08-07 13:16:00 69 mm[Hg] [facility] Heart rate 2020-08-07 13:16:00 99 /min [facility] Body temperature 2020-08-07 13:16:00 36.67 Latanya [facility] Respiratory rate 2020-08-07 13:16:00 18 /min [facility] Body weight 2020-08-07 13:16:00 95.255 kg [facility] BMI 2020-08-07 13:16:00 38.41 kg/m2 [facility] Oxygen saturation in Arterial blood by Pulse oximetry 2020-08-07 13:16:00 99 /min [facility] Systolic blood pressure 2020-08-07 13:16:00 100 mm[Hg] [facility] Diastolic blood pressure 2020-08-07 13:16:00 69 mm[Hg] [facility] Heart rate 2020-08-07 13:16:00 99 /min [facility] Body temperature 2020-08-07 13:16:00 36.67 Latanya [facility] Respiratory rate 2020-08-07 13:16:00 18 /min [facility] Body weight 2020-08-07 13:16:00 95.255 kg [facility] BMI 2020-08-07 13:16:00 38.41 kg/m2 [facility] Oxygen saturation in Arterial blood by Pulse oximetry 2020-08-07 13:16:00 99 /min [facility] Systolic blood pressure 2020-07-01 02:00:00 136 mm[Hg] [facility] Diastolic blood pressure 2020-07-01 02:00:00 85 mm[Hg] [facility] Heart rate 2020-07-01 02:00:00 73 /min [facility] Respiratory rate 2020-07-01 02:00:00 20 /min [facility] Oxygen saturation in Arterial blood by Pulse oximetry 2020-07-01 02:00:00 97 /min [facility] Body temperature 2020-06-30 23:36:00 36.56 Latanya [facility] Body height 2020-06-30 23:36:00 157.5 cm [facility] Body weight 2020-06-30 23:36:00 95.255 kg [facility] BMI 2020-06-30 23:36:00 38.41 kg/m2 [facility] Systolic blood pressure 2020-07-01 02:00:00 136 mm[Hg] [facility] Diastolic blood pressure 2020-07-01 02:00:00 85 mm[Hg] [facility] Heart rate 2020-07-01 02:00:00 73 /min [facility] Respiratory rate 2020-07-01 02:00:00 20 /min [facility] Oxygen saturation in Arterial blood by Pulse oximetry 2020-07-01 02:00:00 97 /min [facility] Body temperature 2020-06-30 23:36:00 36.56 Latanya [facility] Body height 2020-06-30 23:36:00 157.5 cm [facility] Body weight 2020-06-30 23:36:00 95.255 kg [facility] BMI 2020-06-30 23:36:00 38.41 kg/m2 [facility] Systolic blood pressure 2020-06-28 21:57:00 151 mm[Hg] [facility] Diastolic blood pressure 2020-06-28 21:57:00 88 mm[Hg] [facility] Heart rate 2020-06-28 21:57:00 94 /min [facility] Body temperature 2020-06-28 21:57:00 37.78 Latanya [facility] Respiratory rate 2020-06-28 21:57:00 16 /min [facility] Body height 2020-06-28 21:57:00 157.5 cm [facility] Body weight 2020-06-28 21:57:00 95.255 kg [facility] BMI 2020-06-28 21:57:00 38.41 kg/m2 [facility] Oxygen saturation in Arterial blood by Pulse oximetry 2020-06-28 21:57:00 96 /min [facility] Systolic blood pressure 2020-06-28 21:57:00 151 mm[Hg] [facility] Diastolic blood pressure 2020-06-28 21:57:00 88 mm[Hg] [facility] Heart rate 2020-06-28 21:57:00 94 /min [facility] Body temperature 2020-06-28 21:57:00 37.78 Latanya [facility] Respiratory rate 2020-06-28 21:57:00 16 /min [facility] Body height 2020-06-28 21:57:00 157.5 cm [facility] Body weight 2020-06-28 21:57:00 95.255 kg [facility] BMI 2020-06-28 21:57:00 38.41 kg/m2 [facility] Oxygen saturation in Arterial blood by Pulse oximetry 2020-06-28 21:57:00 96 /min [facility] Systolic blood pressure 2020-06-13 03:40:00 122 mm[Hg] [facility] Diastolic blood pressure 2020-06-13 03:40:00 78 mm[Hg] [facility] Heart rate 2020-06-13 03:40:00 90 /min [facility] Respiratory rate 2020-06-13 03:40:00 18 /min [facility] Oxygen saturation in Arterial blood by Pulse oximetry 2020-06-13 03:40:00 94 /min [facility] Body temperature 2020-06-12 23:39:00 37.22 Latanya [facility] Body weight 2020-06-12 23:39:00 97.07 kg [facility] BMI 2020-06-12 23:39:00 39.14 kg/m2 [facility] Systolic blood pressure 2020-06-13 03:40:00 122 mm[Hg] [facility] Diastolic blood pressure 2020-06-13 03:40:00 78 mm[Hg] [facility] Heart rate 2020-06-13 03:40:00 90 /min [facility] Respiratory rate 2020-06-13 03:40:00 18 /min [facility] Oxygen saturation in Arterial blood by Pulse oximetry 2020-06-13 03:40:00 94 /min [facility] Body temperature 2020-06-12 23:39:00 37.22 Latanya [facility] Body weight 2020-06-12 23:39:00 97.07 kg [facility] BMI 2020-06-12 23:39:00 39.14 kg/m2 [facility] Heart rate 2020-05-17 00:40:00 82 /min [facility] Respiratory rate 2020-05-17 00:40:00 18 /min [facility] Oxygen saturation in Arterial blood by Pulse oximetry 2020-05-17 00:40:00 95 /min [facility] Systolic blood pressure 2020-05-17 00:00:00 137 mm[Hg] [facility] Diastolic blood pressure 2020-05-17 00:00:00 93 mm[Hg] [facility] Body temperature 2020-05-16 23:17:00 37.61 Latanya [facility] Body weight 2020-05-16 23:17:00 97.07 kg [facility] BMI 2020-05-16 23:17:00 39.14 kg/m2 [facility] Heart rate 2020-05-17 00:40:00 82 /min [facility] Respiratory rate 2020-05-17 00:40:00 18 /min [facility] Oxygen saturation in Arterial blood by Pulse oximetry 2020-05-17 00:40:00 95 /min [facility] Systolic blood pressure 2020-05-17 00:00:00 137 mm[Hg] [facility] Diastolic blood pressure 2020-05-17 00:00:00 93 mm[Hg] [facility] Body temperature 2020-05-16 23:17:00 37.61 Latanya [facility] Body weight 2020-05-16 23:17:00 97.07 kg [facility] BMI 2020-05-16 23:17:00 39.14 kg/m2 [facility] Systolic blood pressure 2020-05-15 08:50:00 131 mm[Hg] [facility] Diastolic blood pressure 2020-05-15 08:50:00 80 mm[Hg] [facility] Heart rate 2020-05-15 08:50:00 70 /min [facility] Respiratory rate 2020-05-15 08:50:00 18 /min [facility] Oxygen saturation in Arterial blood by Pulse oximetry 2020-05-15 08:50:00 97 /min [facility] Body temperature 2020-05-15 05:29:00 36.44 Latanya [facility] Body height 2020-05-15 05:29:00 157.5 cm [facility] Body weight 2020-05-15 05:29:00 97.07 kg Simultaneous filing. User may not have seen previous data. [facility] BMI 2020-05-15 05:29:00 39.14 kg/m2 [facility] Systolic blood pressure 2020-05-15 08:50:00 131 mm[Hg] [facility] Diastolic blood pressure 2020-05-15 08:50:00 80 mm[Hg] [facility] Heart rate 2020-05-15 08:50:00 70 /min [facility] Respiratory rate 2020-05-15 08:50:00 18 /min [facility] Oxygen saturation in Arterial blood by Pulse oximetry 2020-05-15 08:50:00 97 /min [facility] Body temperature 2020-05-15 05:29:00 36.44 Latanya [facility] Body height 2020-05-15 05:29:00 157.5 cm [facility] Body weight 2020-05-15 05:29:00 97.07 kg Simultaneous filing. User may not have seen previous data. [facility] BMI 2020-05-15 05:29:00 39.14 kg/m2 [facility] Procedures Procedure Date / Time Performed Performing Clinician Source CT ABDOMEN PELVIS W CONTRAST 2023-10-11 04:08:24 Olivia Garcia [facility] POCT TEST 2023-10-11 03:40:00 Olivia Garcia [facility] LIPASE 2023-10-11 03:25:00 Olivia Garcia [facility] COMP. METABOLIC PANEL ([id number]) 2023-10-11 03:25:00 Olivia Garcia [facility] CBC WITH DIFF 2023-10-11 03:25:00 Olivia Garcia [facility] URINALYSIS 2023-10-11 03:25:00 Olivia Garcia [facility] XR KUB 2023-07-02 [facility] 02:30:00 Alberta Richards [facility] LIPASE 2023-07-02 02:05:00 Roberto Richards [facility] COMP. METABOLIC PANEL ([id number]) 2023-07-02 02:05:00 Roberto Richards [facility] CBC WITH DIFF 2023-07-02 02:05:00 Roberto Richards [facility] URINALYSIS 2023-07-02 02:05:00 Roberto Richards [facility] URINE DRUG (IMMUNOASSAY) - COMPREHENSIVE DRUG SCREEN W/O REFLEX 2023-07-02 02:05:00 Roberto Richards [facility] CONSENT/REFUSAL FOR DIAGNOSIS AND TREATMENT 2023-07-02 01:43:05 Doctor Unassigned, [place] [facility] LIPASE 2023-05-09 22:47:00 Narayan Narvaez [facility] COMP. METABOLIC PANEL ([id number]) 2023-05-09 22:47:00 Narayan Narvaez [facility] CBC WITH DIFF 2023-05-09 22:47:00 Narayan Narvaez [facility] CONSENT/REFUSAL FOR DIAGNOSIS AND TREATMENT 2023-05-09 22:32:48 Doctor Unassigned, [place] [facility] CT ABDOMEN PELVIS W CONTRAST 2023-04-30 23:47:56 Narayan Narvaez [facility] COMP. METABOLIC PANEL ([id number]) 2023-04-30 23:08:00 Narayan Narvaez [facility] CBC WITH DIFF 2023-04-30 23:08:00 Narayan Narvaez [facility] POCT TEST 2023-04-30 22:59:00 Jaquan Narvaez [facility] URINALYSIS 2023-04-30 22:57:00 Nar[facility] CONSENT/REFUSAL FOR DIAGNOSIS AND TREATMENT 2023-04-30 22:14:38 Doctor Unassigned, [place] [facility] XR ABDOMEN ACUTE SERIES 2023-04-17 02:13:44 Do minal Richards [facility] POCT TEST 2023-04-17 02:11:00 Alberta Richards [facility] LIPASE 2023-04-17 02:04:00 Roberto Richards [facility] TROPONIN I 2023-04-17 02:04:00 Roberto Richards [facility] COMP. METABOLIC PANEL ([id number]) 2023-04-17 02:04:00 Roberto Richards [facility] CBC WITH DIFF 2023-04-17 02:04:00 Roberto Richards [facility] PROTHROMBIN TIME / INR 2023-04-17 02:04:00 Jalen Richards [facility] ACTIVATED PARTIAL THRMPLAS MARCIO 2023-04-17 02:04:00 Roberto Richards [facility] URINALYSIS 2023-04-17 02:04:00 Roberto Richards [facility] N-TERMINAL PRO-BNP 2023-04-17 02:04:00 Roberto Richards [facility] URINE DRUG (IMMUNOASSAY) - COMPREHENSIVE DRUG SCREEN W/O REFLEX 2023-04-17 02:04:00 Roberto Richards [facility] CONSENT/REFUSAL FOR DIAGNOSIS AND TREATMENT 2023-04-17 01:22:36 Doctor Unassigned, [place] [facility] URINALYSIS 2023-04-09 01:02:00 Saleem Edward [facility] LIPASE 2023-04-08 23:15:00 Saleem Edward [facility] MAGNESIUM 2023-04-08 23:15:00 Saleem Edward [facility] TROPONIN I 2023-04-08 23:15:00 Saleem [facility] COMP. METABOLIC PANEL ([id number]) 2023-04-08 23:15:00 Saleem Edward [facility] CBC WITH DIFF 2023-04-08 23:15:00 Saleem Edward [facility] CONSENT/REFUSAL FOR DIAGNOSIS AND TREATMENT 2023-04-08 21:57:42 Doctor Unassigned, [place] [facility] CT ABDOMEN PELVIS W CONTRAST 2023-03-10 03:38:58 Roberto Richards [facility] POCT TEST 2023-03-10 02:51:00 Alberta Richards [facility] URINALYSIS 2023-03-10 01:49:00 Roberto Richards [facility] LIPASE 2023-03-10 01:46:00 Roberto Richards [facility] COMP. METABOLIC PANEL ([id number]) 2023-03-10 01:46:00 Roberto Richards [facility] CBC WITH DIFF 2023-03-10 01:46:00 Roberto Richards [facility] CONSENT/REFUSAL FOR DIAGNOSIS AND TREATMENT 2023-03-10 01:36:24 Doctor Unassigned, [place] [facility] CONSENT/REFUSAL FOR DIAGNOSIS AND TREATMENT 2023-03-10 01:14:40 Doctor Unassigned, [place] [facility] CT ABDOMEN PELVIS W CONTRAST 2023-03-02 05:16:35 Olivia Garcia [facility] POCT TEST 2023-03-02 03:26:00 Olivia Garcia [facility] LIPASE 2023-03-02 03:23:00 Jose Kyrita [facility] COMP. METABOLIC PANEL ([id number]) 2023-03-02 03:23:00 Olivia Garcia [facility] CBC WITH DIFF 2023-03-02 03:23:00 Olivia Garcia [facility] URINALYSIS 2023-03-02 03:23:00 Olivia Garcia [facility] CONSENT/REFUSAL FOR DIAGNOSIS AND TREATMENT 2023-03-02 00:22:44 Doctor Unassigned, [place] [facility] CONSENT/REFUSAL FOR DIAGNOSIS AND TREATMENT 2023-02-18 03:44:46 Doctor Unassigned, [place] [facility] LIPASE 2023-02-17 09:28:00 [facility] ([id number][facility] (ALB,T.PRO,BILI T,BU/BC,ALT,AST,ALK PHOS) 2023-02-17 09:28:00 Jesús Montero [facility] BASIC METABOLIC PANEL (NA, K, CL, CO2, GLUCOSE, BUN, CREATININE, CA) 2023-02-17 09:28:00 [facility] 2023-02-17 09:28:00 [facility] LIP[facility] 2023-02-16 18:24:00 Jesús Montero [facility] HEPATIC FUNCTION PANEL ([id number]) (ALB,T.PRO,BILI T,BU/BC,ALT,AST,ALK PHOS) 2023-02-16 18:24:00 Kylah [facility] BASIC METABOLIC PANEL (NA, K, CL, CO2, GLUCOSE, BUN, CREATININE, CA) 2023-02-16 18:24:00 Kylah [facility] CBC WITH DIFF 2023-02-16 18:23:00 Kylah [facility] CT ABDOMEN PELVIS W CONTRAST 2023-02-15 23:29:00 Leeanne Wise [facility] LIPASE 2023-02-15 21:45:00 Leeanne Wise [facility] COMP. METABOLIC PANEL ([id number]) 2023-02-15 21:45:00 Leeanne Wise [facility] CBC WITH DIFF 2023-02-15 21:45:00 Leeanne Wise [facility] D-DIMER 2023-02-15 19:55:00 Leeanne Wise [facility] URINALYSIS 2023-02-15 19:50:00 Leeanne Wise [facility] RAPID INFLUENZA A/B 2023-02-15 19:50:00 Leeanne Wise [facility] COVID-19 (ID NOW RAPID TESTING) 2023-02-15 19:50:00 Leeanne Wise [facility] XR CHEST 1 VW 2023-02-15 19:38:00 Leeanne Wise [facility] ASSIGNMENT OF BENEFITS 2023-02-15 19:26:58 Docto r Unassigned, [place] [facility] HB ECG ROUTINE & RHYTHM STRIP 2023-02-15 19:07:40 Leeanne Wise [facility] NOTICE OF PRIVACY PRACTICES 2023-02-15 18:24:07 Doctor Unassigned, [place] [facility] CONSENT/REFUSAL FOR DIAGNOSIS AND TREATMENT 2023-02-15 18:23:04 Doctor Unassigned, [place] [facility] TROPONIN I 2022-01-10 00:32:00 Melida Longoria [facility] TROPONIN I 2022-01-09 22:17:00 Melida Longoria [facility] BASIC METABOLIC PANEL (NA, K, CL, CO2, GLUCOSE, BUN, CREATININE, CA) 2022-01-09 22:17:00 Melida Longoria [facility] CBC WITH DIFF 2022-01-09 22:17:00 Melida Longoria [facility] N-TERMINAL PRO-BNP 2022-01-09 22:17:00 Melida Longoria [facility] XR CHEST 1 VW 2022-01-09 22:11:00 Melida Longoria [facility] CONSENT/REFUSAL FOR DIAGNOSIS AND TREATMENT 2022-01-09 21:34:15 Doctor Unassigned, [place] [facility] TROPONIN I 2021-12-14 05:39:00 Wil Mcqueen [facility] XR CHEST 1 VW 2021-12-14 04:39:00 Wil Mcqueen [facility] POCT TEST 2021-12-14 04:20:00 Wil Mcqueen [facility] URINALYSIS 2021-12-14 03:57:00 Wil Mcqueen [facility] LIPASE 2021-12-14 03:43:00 Wil Mcqueen [facility] TROPONIN I 2021-12-14 03:43:00 Wil Mcqueen [facility] FREE T4 2021-12-14 03:43:00 Wil Mcqueen [facility] THYROID STIMULATING HORMONE 2021-12-14 03:43:00 Wil Mcqueen [facility] COMP. METABOLIC PANEL ([id number]) 2021-12-14 03:43:00 Wil Mcqueen [facility] CBC WITH DIFF 2021-12-14 03:43:00 Wil Mcqueen [facility] FREE T3 2021-12-14 03:43:00 Wil Mcqueen [facility] CONSENT/REFUSAL FOR DIAGNOSIS AND TREATMENT 2021-12-14 02:58:21 Doctor Unassigned, [place] [facility] TROPONIN I 2021-11-12 03:04:00 Dee Wang [facility] POCT TEST 2021-11-12 02:56:00 Tra Wang [facility] URINE DRUG (IMMUNOASSAY) - COMPREHENSIVE DRUG SCREEN 2021-11-12 02:30:00 Dee Wang [facility] URINALYSIS 2021-11-12 02:30:00 Dee Wang [facility] XR CHEST 2 VW 2021-11-12 01:45:03 Dee Wang [facility] LIPASE 2021-11-12 01:34:00 Dee Wang [facility] TROPONIN I 2021-11-12 01:34:00 Dee Wang [facility] COMP. METABOLIC PANEL ([id number]) 2021-11-12 01:34:00 Dee Wang [facility] CBC WITH DIFF 2021-11-12 01:34:00 Dee Wang [facility] N-TERMINAL PRO-BNP 2021-11-12 01:34:00 Mckinley Wang [facility] CONSENT/REFUSAL FOR DIAGNOSIS AND TREATMENT 2021-11-12 00:36:34 Doctor Unassigned, [place] [facility] CT ABDOMEN PELVIS W CONTRAST 2021-09-12 02:49:43 Dee Wang [facility] COVID-19 (ID NOW RAPID TESTING) 2021-09-12 02:23:00 Dee Wang [facility] POCT TEST 2021-09-12 02:21:00 Tra Wang [facility] POCT TEST 2021-09-12 01:45:00 Olivia Garcia [facility] URINALYSIS 2021-09-12 01:43:00 Olivia Garcia [facility] LIPASE 2021-09-12 01:40:00 Olivia Garcia [facility] COMP. METABOLIC PANEL (67204) 2021-09-12 01:40:00 Olivia Garcia [facility] CBC WITH DIFF 2021-09-12 01:40:00 Olivia [facility] CONSENT/REFUSAL FOR DIAGNOSIS AND TREATMENT 2021-09-12 01:26:55 Doctor Unassigned, [place] [facility] XR LUMBAR SPINE 1 VW 2021-08-15 07:03:00 Angeles Garcia i [facility] URINALYSIS 2021-08-15 06:35:00 Olivia Garcia [facility] POCT TEST 2021-08-15 06:35:00 Olivia Garcia [facility] NOTICE OF PRIVACY PRACTICES 2021-08-15 06:01:56 Doctor Unassigned, [place] [facility] CONSENT/REFUSAL FOR DIAGNOSIS AND TREATMENT 2021-08-15 05:25:54 Doctor Unassigned, [place] [facility] TROPONIN I 2021-05-28 07:50:00 Cem Choi [facility] D-DIMER 2021-05-28 07:05:00 Cem Choi [facility] XR CHEST 2 VW 2021-05-28 05:46:00 Cem Choi [facility] POCT TEST 2021-05-28 05:32:00 Cem Choi [facility] LIPASE 2021-05-28 05:29:00 Cem Choi [facility] TROPONIN I 2021-05-28 05:29:00 Cem Choi [facility] COMP. METABOLIC PANEL (95039) 2021-05-28 05:29:00 Cem Choi [facility] CBC WITH DIFF 2021-05-28 05:29:00 Cem Choi [facility] N-TERMINAL PRO-BNP 2021-05-28 05:29:00 Cem Choi [facility] COVID-19 (ID NOW RAPID TESTING) 2021-05-28 [facility]:29[facility] 2021-04-08 10:01:00 Brittni Romero [facility] BASIC METABOLIC PANEL (NA, K, CL, CO2, GLUCOSE, BUN, CREATININE, CA) 2021-04-08 10:01:00 Brittni Romero [facility] CBC WITH DIFF 2021-04-08 10:01:00 Brittni Romero [facility] TROPONIN I 2021-04-08 04:12:00 Brittni Romero [facility] XR CHEST 1 VW 2021-04-07 22:33:33 Roberto Richards [facility] LIPASE 2021-04-07 21:52:00 Roberto Richards [facility] MAGNESIUM 2021-04-07 21:52:00 Brittni Romero [facility] TROPONIN I 2021-04-07 21:52:00 Roberto Richards [facility] THYROID STIMULATING HORMONE 2021-04-07 21:52:00 Brittni Romero [facility] COMP. METABOLIC PANEL ([id number]) 2021-04-07 21:52:00 Roberto Richards [facility] LIPID PANEL (27239)(TOTAL CHOLESTEROL, TRIGLYCERIDES, HDL) 2021-04-07 21:52:00 Brittni Romero [facility] CBC WITH DIFF 2021-04-07 21:52:00 Roberto Richards [facility] GLYCOSYLATED HEMOGLOBIN (A1C) 2021-04-07 21:52:00 Brittni Romero [facility] PROTHROMBIN TIME / INR 2021-04-07 21:52:00 Jalen Richards [facility] ACTIVATED PARTIAL THRMPLAS MARCIO 2021-04-07 21:52:00 Roberto Richards [facility] N-TERMINAL PRO-BNP 2021-04-07 21:52:00 Roberto Richards [facility] COVID-19 (ID NOW RAPID TESTING) 2021-04-07 21:51:00 Roberto Richards [facility] HB ECG ROUTINE & RHYTHM STRIP 2021-04-07 21:38:41 Roberto Richards [facility] CONSENT/REFUSAL FOR DIAGNOSIS AND TREATMENT 2021-04-07 21:17:47 Doctor Unassigned, [place] [facility] CT ABDOMEN PELVIS WO CONTRAST 2021-01-12 08:10:17 [facility] POCT TEST 2021-01-12 08:02:00 Jaquan Narvaez [facility] URINALYSIS 2021-01-12 07:58:00 Singer [facility] COMP. METABOLIC PANEL ([id number]) 2021-01-12 07:56:00 [facility] CBC WITH DIFF 2021-01-12 07:56:00 Singer [facility] TROPONIN I 2020-12-11 00:47:00 [facility] 2020-12-10 22:40:57 Bal Hassan [facility] POCT TEST 2020-12-10 22:32:00 Suzanna Hassan [facility] URINALYSIS 2020-12-10 22:30:00 [facility] 2020-12-10 22:24:00 Mo [facility] TROPONIN I 2020-12-10 22:24:[facility]EL (12121) (ALB,T.PRO,BILI T,BU/BC,ALT,AST,ALK PHOS) 2020-12-10 22:24:00 Mo [facility] BASIC METABOLIC PANEL (NA, K, CL, CO2, GLUCOSE, BUN, CREATININE, CA) 2020-12-10 22:24:00 Bal Hassan [facility] CBC WITH DIFF 2020-12-10 22:24:00 Bal Hassan [facility] D-DIMER 2020-12-10 22:24:00 Bal Hassan [facility] N-TERMINAL PRO-BNP 2020-12-10 22:24:00 Mirtha Hassan [facility] POCT TEST 2020-12-04 21:18:00 [facility] 2020-12-04 21:17:00 [facility] LIPASE 2020-12-04 20:20:00 [facility] TROPONIN I 2020-12-04 20:20:00 [facility] HEPATIC FUNCTION PANEL (49087) (ALB,T.PRO,BILI T,BU/BC,ALT,AST,ALK PHOS) 2020-12-04 20:20:00 [facility] BASIC METABOLIC PANEL (NA, K, CL, CO2, GLUCOSE, BUN, CREATININE, CA) 2020-12-04 20:20:00 [facility] CBC WITH DIFF 2020-12-04 20:20:00 Tremaine [facility] XR CHEST 1 VW 2020-12-04 20:16:54 Tremaine Becerra [facility] XR ANKLE 3+ VW LEFT 2020-12-04 20:16:54 [facility] CONSENT/REFUSAL FOR DIAGNOSIS AND TREATMENT 2020-12-04 19:43:45 Doctor Unassigned, [place] [facility] XR CHEST 1 VW 2020-11-04 02:24:02 Olivia [facility] URINE DRUG (IMMUNOASSAY) - 4 ER PANEL 2020-11-04 02:19:00 Olivia Garcia [facility] URINALYSIS 2020-11-04 02:19:00 Olivia Garcia [facility] LIPASE 2020-11-04 02:16:00 Olivia Garcia [facility] TROPONIN I 2020-11-04 02:16:00 Olivia Garcia [facility] COMP. METABOLIC PANEL ([id number]) 2020-11-04 02:16:00 Olivia Garcia [facility] CBC WITH DIFF 2020-11-04 02:16:00 Olivia Garcia [facility] PROTHROMBIN TIME / INR 2020-11-04 02:16:00 Lucia Garcia [facility] ACTIVATED PARTIAL THRMPLAS MARCIO 2020-11-04 02:16:00 Olivia Garcia [facility] CONSENT/REFUSAL FOR DIAGNOSIS AND TREATMENT 2020-11-04 01:11:16 Doctor Unassigned, [place] [facility] XR CHEST 1 VW 2020-09-17 17:32:21 Leeanne Wise [facility] RAPID STREP SCREEN FOR GROUP A 2020-09-17 16:31:00 Leeanne Wise [facility] COVID-19 (ID NOW RAPID TESTING) 2020-09-17 16:31:00 Leeanne Wise [facility] NOTICE OF PRIVACY PRACTICES 2020-09-17 15:47:38 Doctor Unassigned, [place] [facility] CONSENT/REFUSAL FOR DIAGNOSIS AND TREATMENT 2020-09-17 15:47:07 Doctor Unassigned, [place] [facility] XR FOREARM 2 VW LEFT 2020-09-07 06:59:53 Saleem Edward [facility] XR HAND 3+ VW LEFT 2020-09-07 06:59:53 Saleem Edward [facility] NOTICE OF PRIVACY PRACTICES 2020-09-07 06:06:09 Doctor Unassigned, [place] [facility] CONSENT/REFUSAL FOR DIAGNOSIS AND TREATMENT 2020-09-07 06:03:10 Doctor Unassigned, [place] [facility] CT ABDOMEN PELVIS W CONTRAST 2020-08-28 09:16:08 Olivia Garcia [facility] POCT TEST 2020-08-28 08:45:00 Olivia Garcia [facility] URINALYSIS 2020-08-28 08:43:00 Olivia Garcia [facility] LIPASE 2020-08-28 08:09:00 [facility] COMP. METABOLIC PANEL (97446) 2020-08-28 08:09:00 Olivia Garcia [facility] CBC WITH DIFF 2020-08-28 08:09:00 Olivia [facility] VW 2020-08-14 18:10:03 Best Taylor [facility] LIPASE 2020-08-14 17:58:00 Best Taylor [facility] TROPONIN I 2020-08-14 17:58:00 Best Taylor [facility] COMP. METABOLIC PANEL (06914) 2020-08-14 17:58:00 Best Taylor [facility] CBC WITH DIFF 2020-08-14 17:58:00 Best Taylor [facility] URINALYSIS 2020-08-14 17:58:00 Best Taylor [facility] LACTIC ACID WHOLE BLOOD 2020-08-14 17:58:00 Sophie Taylor [facility] ADC / LCC - DRUG SCREEN TRIAGE 2020-08-14 17:58:00 Best Taylor [facility] CONSENT/REFUSAL FOR DIAGNOSIS AND TREATMENT 2020-08-14 17:33:16 Doctor Unassigned, [place] [facility] CT ABDOMEN PELVIS WO CONTRAST 2020-08-11 04:11:07 Best Taylor [facility] XR CHEST 1 VW 2020-08-11 03:56:48 Best Taylor [facility] POCT TEST 2020-08-11 03:10:00 Best Taylor [facility] BLOOD CULTURE SCREEN 2020-08-11 02:01:00 Best Taylor [facility] BLOOD CULTURE SCREEN 2020-08-11 01:45:00 Best Taylor [facility] LIPASE 2020-08-11 01:45:00 Best Taylor [facility] TROPONIN I 2020-08-11 01:45:00 Best Taylor [facility] HEPATIC FUNCTION PANEL (64861) (ALB,T.PRO,BILI T,BU/BC,ALT,AST,ALK PHOS) 2020-08-11 01:45:00 Best Taylor [facility] BASIC METABOLIC PANEL (NA, K, CL, CO2, GLUCOSE, BUN, CREATININE, CA) 2020-08-11 01:45:00 Best Taylor [facility] CBC WITH DIFF 2020-08-11 01:45:00 Best Taylor [facility] URINALYSIS 2020-08-11 01:45:00 Best Taylor [facility] LACTIC ACID WHOLE BLOOD 2020-08-11 01:45:00 Sophie Taylor [facility] COVID-19 (ID NOW RAPID TESTING) 2020-08-11 01:45:00 Best Taylor [facility] CONSENT/REFUSAL FOR DIAGNOSIS AND TREATMENT 2020-08-11 00:12:54 Doctor Unassigned, [place] [facility] XR FOREARM 2 VW LEFT 2020-08-07 14:03:06 Unique Richards [facility] COVID-19 (ID NOW RAPID TESTING) 2020-08-07 13:35:00 Roberto Richards [facility] NOTICE OF PRIVACY PRACTICES 2020-08-07 13:13:25 Doctor Unassigned, [place] [facility] CONSENT/REFUSAL FOR DIAGNOSIS AND TREATMENT 2020-08-07 13:11:06 Doctor Unassigned, [place] [facility] CONSENT/REFUSAL FOR DIAGNOSIS AND TREATMENT 2020-08-07 13:10:57 Doctor Unassigned, [place] [facility] TROPONIN I 2020-07-01 02:03:00 Abdias Robertson [facility] POCT TEST 2020-07-01 00:51:00 Abdias Robertson [facility] URINALYSIS 2020-07-01 00:48:00 Abdias Robertson [facility] CBC WITH DIFF 2020-07-01 00:12:00 Abdias Robertson [facility] EXTRA TUBE LT. BLUE 2020-07-01 00:12:00 Abdias Robertson [facility] LIPASE 2020-07-01 00:09:00 Abdias Robertson [facility] TROPONIN I 2020-07-01 00:09:00 [facility] BASIC METABOLIC PANEL (NA, K, CL, CO2, GLUCOSE, BUN, CREATININE, CA) 2020-07-01 00:09:00 [facility] ADC,CLC OR LCC ONLY - INFLUENZA A & B DIRECT ANTIGEN 2020-07-01 00:09:00 Ailyn [facility] N-TERMINAL PRO-BNP 2020-07-01 00:09:00 [facility] XR CHEST 1 VW 2020-07-01 00:07:07 Abdias Robertson [facility] NOTICE OF PRIVACY PRACTICES 2020-06-30 23:27:46 Doctor Unassigned, [place] [facility] CT CERVICAL SPINE WO CONTRAST 2020-06-28 23:12:00 Narayan Narvaez [facility] CONSENT/REFUSAL FOR DIAGNOSIS AND TREATMENT 2020-06-28 21:52:44 Doctor Unassigned, [place] [facility] POCT TEST 2020-06-13 01:50:00 Leeanne Wise [facility] XR CHEST 1 VW 2020-06-13 01:18:17 Leeanne Wise [facility] URINALYSIS 2020-06-13 00:34:00 Leeanne Wise [facility] COVID-19 (ID NOW RAPID TESTING) 2020-06-13 00:34:00 Leeanne Wise [facility] LIPASE 2020-06-13 00:33:00 Leeanne Wise [facility] TROPONIN I 2020-06-13 00:33:00 Leeanne Wise [facility] HEPATIC FUNCTION PANEL (88763) (ALB,T.PRO,BILI T,BU/BC,ALT,AST,ALK PHOS) 2020-06-13 00:33:00 Leeanne Wise [facility] BASIC METABOLIC PANEL (NA, K, CL, CO2, GLUCOSE, BUN, CREATININE, CA) 2020-06-13 00:33:00 Leeanne Wise [facility] CBC WITH DIFF 2020-06-13 00:33:00 Leeanne Wise [facility] D-DIMER 2020-06-13 00:33:00 Candi Wiseala Kristin [facility] CONSENT/REFUSAL FOR DIAGNOSIS AND TREATMENT 2020-06-12 23:27:48 Doctor Unassigned, [place] [facility] COVID-19 (ID NOW RAPID TESTING) 2020-05-16 23:50:00 Bushra Rios [facility] LIPASE 2020-05-16 23:21:00 [facility] (99996[facility] (ALB,T.PRO,BILI T,BU/BC,ALT,AST,ALK PHOS) 2020-05-16 23:21:00 Bushra Rios [facility] BASIC METABOLIC PANEL (NA, K, CL, CO2, GLUCOSE, BUN, CREATININE, CA) 2020-05-16 23:21:00 Bushra Rios [facility] CBC WITH DIFF 2020-05-16 23:21:00 [facility] AC[facility]IN[facility]EN 2020-05-15 07:42:00 Roberto Richards [facility] CT ABDOMEN PELVIS W CONTRAST 2020-05-15 06:56:53 Roberto Richards [facility] CT HEAD WO CONTRAST 2020-05-15 06:56:27 Alberta Richards [facility] POCT TEST 2020-05-15 05:53:00 Alberta Richards [facility] LIPASE 2020-05-15 05:52:00 Roberto Richards [facility] HEPATIC FUNCTION PANEL (62238) (ALB,T.PRO,BILI T,BU/BC,ALT,AST,ALK PHOS) 2020-05-15 05:52:00 Roberto Richards [facility] BASIC METABOLIC PANEL (NA, K, CL, CO2, GLUCOSE, BUN, CREATININE, CA) 2020-05-15 05:52:00 Roberto Richards [facility] ETHANOL 2020-05-15 05:52:00 Roberto Richards [facility] CBC WITH DIFF 2020-05-15 05:52:00 Roberto Richards [facility] PROTHROMBIN TIME / INR 2020-05-15 05:52:00 Jalen Richards [facility] ACTIVATED PARTIAL THRMPLAS MARCIO 2020-05-15 05:52:00 Roberto Richards [facility] URINALYSIS 2020-05-15 05:52:00 Roberto Richards [facility] ADC / LCC - DRUG SCREEN TRIAGE 2020-05-15 05:52:00 Roberto Richards [facility] NOTICE OF PRIVACY PRACTICES 2020-05-15 05:12:38 Doctor Unassigned, [place] [facility] CONSENT/REFUSAL FOR DIAGNOSIS AND TREATMENT 2020-05-15 05:12:26 Doctor Unassigned, [place] [facility] Encounters Start Date/Time End Date/Time Encounter Type Admission Type Attending [facility] Care Facility Care Department Encounter ID Source 2024-04-22 09:15:00 2024-04-22 09:15:00 Outpatient FARTUN GILLESPIE [id number] [facility]ellee [facility] 2024-04-15 10:30:00 2024-04-15 10:30:00 Outpatient JOANNE MONTES [id number] [facility] 2024-03-12 00:00:00 2024-03-12 00:00:00 Outpatient JOANNE MONTES [id number] [facility] 2024-03-06 11:00:00 2024-03-06 11:00:00 Outpatient JOANNE MONTES [id number] [facility] 2024-02-06 11:00:00 2024-02-06 11:00:00 Outpatient JO, GISELLE KELLEE DORMAN [id number] [facility] 2024-02-06 10:40:00 2024-02-06 10:40:00 Outpatient KELLEE DORMAN [id number] [facility]24-02-06 00:00:00 2024-02-06 00:00:00 Outpatient HUNDL, JOANNE DORMAN [id number] [facility] 2024-02-05 00:00:00 2024-02-05 00:00:00 Out[facility]UNDL[facility] [id number] [facility]24-[facility]-14 09:30:00 2024-01-14 09:30:00 Outpatient HUNDL, [facility] DORMAN [id number] [facility] 2024-01-09 00:00:00 2024-01-09 00:00:00 Outpatient HUNDL, JOANNE DORMAN [id number] [facility] 2024-01-06 00:00:00 2024-01-06 00:00:00 Outpatient HUNDL, JOANNE DORMAN [id number] [facility] 2024-01-03 00:00:00 2024-01-03 00:00:00 Outpatient HUNDL, [facility] DORMAN [id number] [facility]24-01-02 14:00:00 2024-01-02 14:00:00 Outpatient HUNDL, JOANNE DORMAN [id number] [facility] 2023-12-13 09:30:00 2023-12-13 09:30:00 Outpatient HUNDL, JOANNE DORMAN [id number] [facility] 2023-12-09 00:00:00 2023-12-09 00:00:00 Outpatient HUNDL, JOANNE DORMAN [id number] [facility] 2023-12-05 00:00:00 2023-12-05 00:00:00 Outpatient HUNDL, JOANNE DORMAN [id number] [facility] 2023-12-03 11:45:00 2023-12-03 11:45:00 Outpatient LAB90 KELLEE DORMAN [id number] [facility] 2023-12-03 11:00:00 2023-12-03 11:00:00 Outpatient JOANNE MONTES [id number] [facility] 2023-11-26 00:00:00 2023-11-26 00:00:00 Outpatient JOANNE MONTES KELLEE [id number] [facility] 2023-10-31 00:00:00 2023-10-31 00:00:00 Outpatient COSMO DORMAN KELLEE [id number] [facility] 2023-10-31 00:00:00 2023-10-31 00:00:00 Outpatient COSMO DORMAN KELLEE [id number] [facility] 2023-10-29 14:15:00 2023-10-29 14:15:00 Outpatient LAB90 KELLEE KELLEE [id number] [facility] 2023-10-29 13:30:00 2023-10-29 13:30:00 Outpatient JOANNE MONTES KELLEE [id number] [facility] 2023-10-10 21:31:00 2023-10-11 00:43:00 Emergency X SUMAYARATNAELLENOLIVIA [facility] ERT [id number] [facility] 2023-10-10 21:31:00 2023-10-11 00:43:00 Emergency Olivia Garcia Raad [facility] [id number] 350.1.13.10 4.2.7.2.686 [id number] [facility] 2023-08-31 18:02:00 2023-08-31 22:40:00 emergency [facility] [id number] 2023-08-31 18:02:00 2023-08-31 22:40:00 Emergency ER SHERIDAN MCMANUS [facility] [id number] [facility] 2023-07-01 19:50:00 2023-07-01 22:59:00 Emergency X ROBERTO RICHARDS [facility] ERT [id number] [facility] 2023-07-01 19:50:00 2023-07-01 22:59:00 Emergency Roberto Richards [facility] [id number] 350.1.13.10 4.2.7.2.686 [id number] [facility] 2023-06-04 23:37:00 2023-06-06 13:30:00 observatio n encounter [facility] [id number] 2023-06-04 23:37:00 2023-06-06 13:30:00 Inpatient ER JO-ANN SHAN [facility] MED [id number] [facility] 2023-05-11 01:16:00 2023-05-13 17:04:00 observatio n encounter [facility] [id number] 24 2023-05-11 01:16:00 2023-05-13 17:04:00 Inpatient ER TOM MYLESAR [facility] MED [id number] [facility] 2023-05-10 21:48:00 2023-05-10 21:48:00 Emergency ER AN IRIZARRY [facility] [id number] [facility] 2023-05-09 17:40:00 2023-05-09 20:30:00 Emergency X NARAYAN NARVAEZ [facility] ERT [id number] [facility] 2023-05-09 17:40:00 2023-05-09 20:30:00 Emergency Narayan Narvaez [facility] 1.2.840.114 350.1.13.10 4.2.7.2.686 [id number] [facility] 2023-05-05 21:31:00 2023-05-06 03:15:00 emergency [facility] [id number] 2023-05-05 21:31:00 2023-05-06 03:15:00 Emergency ER SHERIDAN MCMANUS [facility] [id number] [facility] 2023-04-30 17:18:00 2023-04-30 21:20:00 Emergency X NARAYAN NARVAEZ [facility] ERT [id number] [facility] 2023-04-30 17:18:00 2023-04-30 21:20:00 Emergency Narayan Narvaez [facility] 1.2.840.114 350.1.13.10 4.2.7.2.686 [id number] [facility] 2023-04-16 20:40:00 2023-04-16 23:10:00 Emergency X ROBERTO RICHARDS [facility] ERT [id number] [facility] 2023-04-16 20:40:00 2023-04-16 23:10:00 Emergency Roberto Richards [facility] 1.2.840.114 350.1.13.10 4.2.7.2.686 [id number] [facility] 2023-04-08 17:28:00 2023-04-08 21:20:00 Emergency X Saleem EDWARD [facility] ERT [id number] [facility] 2023-04-08 17:28:00 2023-04-08 21:20:00 Emergency Saleem Edward [facility] 1.2.840.114 350.1.13.10 4.2.7.2.686 [id number] [facility] 2023-03-09 20:23:00 2023-03-10 00:20:00 Emergency X ROBERTO RICHARDS [facility] ERT [id number] [facility] 2023-03-09 20:23:00 2023-03-10 00:20:00 Emergency Roberto Richards [facility] 1.2.840.114 350.1.13.10 4.2.7.2.686 [id number] [facility] 2023-03-01 19:35:00 2023-03-02 01:35:00 Emergency X OLIVIA GARCIA [facility] ERT [id number] [facility] 2023-03-01 19:35:00 2023-03-02 01:35:00 Emergency Olivia Garcia [facility] 1.2.840.114 350.1.13.10 4.2.7.2.686 [id number] [facility] 2023-02-17 22:58:00 2023-02-18 02:22:00 Emergency X BRITTNI PADGETT [facility] ERT [id number] [facility] 2023-02-17 22:58:00 2023-02-18 02:22:00 Emergency Brittni Padgett [facility] 1.2.840.114 350.1.13.10 4.2.7.2.686 [id number] [facility] 2023-02-15 13:46:00 2023-02-17 16:14:00 Outpatient X KYLAH JESÚS [facility] AL[facility] [id number] [facility] 2023-02-15 13:46:00 2023-02-17 16:14:00 Emergency Leeanne Wise Jelani [facility] 1.2.840.114 350.1.13.10 4.2.7.2.686 [id number] [facility] 2022-01-17 10:48:00 2022-01-17 10:48:00 Outpatient CATHIE HOBSON [facility] [id number] Heather henriquez [facility] 2022-01-09 16:47:00 2022-01-09 20:28:00 Emergency X CHEL LONGORIAIO [facility] ERT [id number] [facility] 2022-01-09 16:47:00 2022-01-09 20:28:00 Emergency Melida Longoria C [facility] 1.2840.114 350.1.13.10 4.2.7.2.686 [id number] [facility] 2021-12-13 22:16:00 2021-12-14 02:28:00 Emergency WIL SANCHEZ [facility] ERT [id number] [facility] 2021-12-13 22:16:00 2021-12-14 02:28:00 Emergency Wil Mcqueen [facility] 1.2840.114 350.1.13.10 4.2.7.2.686 [id number] [facility] 2021-11-11 19:50:00 2021-11-11 23:17:00 Emergency X DEE WANG [facility] ERT [id number] [facility] 2021-11-11 19:50:00 2021-11-11 23:17:00 Emergency Dee Wang [facility] 1.2840.114 350.1.13.10 4.2.7.2.686 [id number] [facility] 2021-11-11 00:00:00 2021-11-11 00:00:00 Orders Only Doctor Unassigned, [facility] 1.2840.114 350.1.13.10 4.2.7.2.686 [id number] [facility] 2021-09-11 19:42:00 2021-09-11 23:02:00 Emergency X DEE WANG [facility] E[facility] [id number] [facility] 2021-09-11 19:42:00 2021-09-11 23:02:00 Emergency Dee Wang [facility] 1..114 350.1.13.10 4.2.7.2.686 [id number] [facility] 2021-08-14 23:38:00 2021-08-15 02:29:00 Emergency X OLIVIA GARCIA [facility] ERT [id number] [facility] 2021-08-14 23:38:00 2021-08-15 02:29:00 Emergency Olivia Garcia [facility] 1..114 350.1.13.10 4.2.7.2.686 [id number] [facility] 2021-05-27 23:23:00 2021-05-28 04:23:00 Emergency X CEM CHOI [facility] ERT [id number] [facility] 2021-05-27 23:23:00 2021-05-28 04:23:00 Emergency Cem Choi [facility] 1..114 350.1.13.10 4.2.7.2.686 [id number] [facility] 2021-04-10 00:00:00 2021-04-10 00:00:00 Transition of Care Shelley Rosas 1..114 350.1.13.10 4.2.7.2.686 [id number] [facility] 2021-04-07 16:30:00 2021-04-08 17:45:00 Hospital Encounter Roberto Richards Jelani [facility] 1.2.840.114 350.1.13.10 4.2.7.2.686 [id number] [facility] 2021-04-07 16:18:00 2021-04-07 16:18:00 Emergency X [facility] E[facility] [id number] [facility] 2021-01-12 03:01:00 2021-01-12 04:56:00 Emergency Narayan Narvaez [facility] 1.2840.114 350.1.13.10 4.2.7.2.686 [id number] [facility] 2021-01-12 03:01:00 2021-01-12 03:01:00 Emergency X NARAYAN NARVAEZ [facility] ERT [id number] [facility] 2020-12-10 17:12:00 2020-12-10 21:14:00 Emergency Bal Hassan [facility] 1.2840.114 350.1.13.10 4.2.7.2.686 [id number] [facility] 2020-12-10 17:12:00 2020-12-10 17:12:00 Emergency X BAL HASSAN [facility] ERT [id number] [facility] 2020-12-04 14:50:00 2020-12-04 17:08:00 Emergency Tremaine Becerra [facility] 1.2840.114 350.1.13.10 4.2.7.2.686 [id number] [facility] 2020-12-04 14:50:00 2020-12-04 17:08:00 Emergency X TREMAINE BECERRA [facility] ERT [id number] [facility] 2020-11-03 20:44:00 2020-11-03 23:34:00 Emergency Leeanne Wise [facility] 1.2840.114 350.1.13.10 4.2.7.2.686 [id number] [facility] 2020-11-03 20:44:00 2020-11-03 23:34:00 Emergency X LEEANNE WISE [facility] ERT [id number] [facility] 2020-09-19 12:32:00 2020-09-19 14:15:00 Emergency ER MORA POLLOCK [facility] [id number] [facility] 2020-09-17 09:53:00 2020-09-17 11:55:00 Emergency Leeanne Wise [facility] 1.2.840.114 350.1.13.10 4.2.7.2.686 [id number] [facility] 2020-09-17 09:53:00 2020-09-17 11:55:00 Emergency X LEEANNE WISE [facility] ERT [id number] [facility] 2020-09-17 09:53:00 2020-09-17 11:55:00 Emergency Leeanne Wise [facility] 1.2.840.114 350.1.13.10 4.2.7.2.686 [id number] 2020-09-07 00:37:00 2020-09-07 01:41:00 Emergency Saleem Edward [facility] 1.2.840.114 350.1.13.10 4.2.7.2.686 [id number] [facility] 2020-09-07 00:37:00 2020-09-07 01:41:00 Emergency X Saleem EDWARD [facility] ERT [id number] [facility] 2020-09-07 00:37:00 2020-09-07 01:41:00 Emergency Saleem Edward [facility] 1.2.840.114 350.1.13.10 4.2.7.2.686 [id number] 2020-09-07 00:00:00 2020-09-07 00:00:00 Orders Only Doctor Unassigned, [facility] 1.2.840.114 350.1.13.10 4.2.7.2.686 [id number] [facility] 2020-09-07 00:00:00 2020-09-07 00:00:00 Orders Only Doctor Unassigned, [facility] 1.2.840.114 350.1.13.10 4.2.7.2.686 [id number] 2020-08-28 01:59:00 2020-08-28 04:40:00 Emergency Olivia Garcia [facility] 1.2.840.114 350.1.13.10 4.2.7.2.686 [id number] 084 [id number] [facility] 2020-08-28 01:59:00 2020-08-28 04:40:00 Emergency Olivia Garcia [facility] 1.2.840.114 350.1.13.10 4.2.7.2.686 [id number] 084 [id number] 2020-08-28 01:59:00 2020-08-28 01:59:00 Emergency X OLIVIA GARCIA [facility] ERT [id number] [facility] 2020-08-14 11:48:00 2020-08-14 13:42:00 Emergency ClaudiaBest [facility] 1.2.840.114 350.1.13.10 4.2.7.2.686 [id number] [id number] [facility] 2020-08-14 11:48:00 2020-08-14 13:42:00 Emergency ClaudiaBest andrade R [facility] 1.2.840.114 350.1.13.10 4.2.7.2.686 [id number] 084 [id number] 2020-08-14 11:33:00 2020-08-14 11:33:00 Emergency X BEST TAYLOR [facility] ERT [id number] [facility] 2020-08-10 18:35:00 2020-08-11 00:05:00 Emergency Best [facility] 1.2.840.114 350.1.13.10 4.2.7.2.686 [id number] 084 [id number] [facility] 2020-08-10 18:35:00 2020-08-11 00:05:00 Emergency X LUIS E GARCIAYEFRI [facility] ERT [id number] [facility] 2020-08-10 18:35:00 2020-08-11 00:05:00 Emergency Best [facility] 1.2.840.114 350.1.13.10 4.2.7.2.686 [id number] 2020-08-07 07:19:00 2020-08-07 09:02:[facility] 1.2.840.114 350.1.13.10 4.2.7.2.686 [id number] 084 [id number] [facility] 2020-08-07 07:19:00 2020-08-07 09:02:00 [facility] 1.2.840.114 350.1.13.10 4.2.7.2.686 [id number] 084 [id number] 2020-08-07 07:12:00 2020-08-07 07:12:00 Emergency X [facility] [id number] [facility] 2020-08-07 00:00:00 2020-08-07 00:00:00 Orders Only Doctor Unassigned, [facility] 1.2.840.114 350.1.13.10 4.2.7.2.686 [id number] [facility] 2020-08-07 00:00:00 2020-08-07 00:00:00 Orders Only Doctor Unassigned, [facility] 1.2.840.114 350.1.13.10 4.2.7.2.686 [id number] 2020-07-01 00:00:00 2020-07-01 00:00:00 Letter (Out) [facility] 1.2.840.114 350.1.13.10 4.2.7.2.686 [id number] [facility] 2020-07-01 00:00:00 2020-07-01 00:00:00 Letter (Out) [facility] 1.2.840.114 350.1.13.10 4.2.7.2.686 [id number] 019 [id number] 2020-06-30 17:46:00 2020-06-30 21:06:00 Emergency Abdias Robertson [facility] 1.2.840.114 350.1.13.10 4.2.7.2.686 [id number] [facility] 2020-06-30 17:46:00 2020-06-30 21:06:00 Emergency X ABDIAS ROBERTSON [facility] ERT [id number] [facility] 2020-06-30 17:46:00 2020-06-30 21:06:00 Emergency Abdias Robertson [facility] 1.2.840.114 350.1.13.10 4.2.7.2.686 [id number] 084 [id number] 2020-06-28 16:00:00 2020-06-28 18:08:00 Emergency Narayan Narvaez [facility] 1.2.840.114 350.1.13.10 4.2.7.2.686 [id number] 2020-06-28 16:00:00 2020-06-28 18:08:00 Emergency Narayan Narvaez [facility] 1.2.840.114 350.1.13.10 4.2.7.2.686 [id number] [id number] [facility] 2020-06-28 16:00:00 2020-06-28 16:00:00 Emergency X NARAYAN NARVAEZ [facility] ERT [id number] [facility] 2020-06-14 00:00:00 2020-06-14 00:00:00 Telephone [facility] 1.2.840.114 350.1.13.10 4.2.7.2.686 [id number] [id number] 2020-06-14 00:00:00 2020-06-14 00:00:00 Telephone [facility] 1.2.840.114 350.1.13.10 4.2.7.2.686 [id number] [facility] 2020-06-12 17:40:00 2020-06-12 22:05:00 Emergency Leeanne Wise [facility] 1.2.840.114 350.1.13.10 4.2.7.2.686 [id number] 2020-06-12 17:40:00 2020-06-12 22:05:00 Emergency Leeanne Wise [facility] 1.2.840.114 350.1.13.10 4.2.7.2.686 [id number] [facility] 2020-06-12 17:28:00 2020-06-12 17:28:00 Emergency X [facility] [id number] [facility] 2020-05-16 17:10:00 2020-05-16 19:01:00 Emergency Bushra Rios [facility] 1.2.840.114 350.1.13.10 4.2.7.2.686 [id number] 084 [id number] 2020-05-16 17:10:00 2020-05-16 19:01:00 Emergency Bushra Rios [facility] 1.2.840.114 350.1.13.10 4.2.7.2.686 [id number] [id number] [facility] 2020-05-16 17:10:00 2020-05-16 17:10:00 Emergency X BUSHRA RIOS [facility] ERT [id number] [facility] 2020-05-14 23:18:00 2020-05-15 02:54:00 Emergency Roberto Richards [facility] 1.2.840.114 350.1.13.10 4.2.7.2.686 [id number] 2020-05-14 23:18:00 2020-05-15 02:54:00 Emergency Roberto Richards [facility] 1.2.840.114 350.1.13.10 4.2.7.2.686 [id number] [facility] 2020-05-14 23:14:00 2020-05-14 23:14:00 Emergency X ROBERTO RICHARDS [facility] ERT [id number] [facility] 2009-07-18 05:35:00 2009-07-18 09:19:00 Emergency ER SINCERE FRANK [facility] [id number] [facility] 2008-10-08 09:55:00 2008-10-08 14:19:00 Emergency ER GUMARO ALVAREZ [facility] [id number] [facility] 2008-03-26 15:21:00 2008-03-26 18:08:00 Emergency ER NEIL WILKINS [facility] [id number] [facility] 2005-05-25 06:35:00 2005-05-25 06:35:00 Outpatient LISA LUNA [facility] [id number] [facility] 2005-05-16 21:57:00 2005-05-16 23:40:00 Emergency ER JW SOLORZANO [facility] [id number] [facility] 2005-04-24 18:49:00 2005-04-24 22:40:00 Emergency ER JW SOLORZANO [facility] [id number] [facility] 2004-12-27 20:30:00 2004-12-28 01:40:00 Emergency ER SANIA SIBLEY [facility] [id number] [facility] 2003-12-07 22:40:00 2003-12-08 02:48:00 Emergency ER GINA MARTIN [facility] [id number] [facility] 2003-12-06 13:57:00 2003-12-06 18:30:00 Emergency ER YIN RIOS [facility] [id number] [facility] 2003-08-31 19:43:00 2003-08-31 22:55:00 Emergency ER GUMARO ALVAREZ [facility] [id number] [facility] 2003-08-22 19:26:00 2003-08-22 22:10:00 Emergency ER ALBERTO CASTLE [facility] [id number] [facility] 2002-01-30 22:41:00 2002-01-31 01:29:00 Emergency ER ANTHONY SCHNEIDER [facility] [id number] [facility] 2001-10-28 09:15:00 2001-10-28 11:25:00 Emergency ER LINDA, DARCIE [facility] [id number] [facility] 2001-04-15 19:14:00 2001-04-15 23:10:00 Emergency ER ARLETTE ROBERT [facility] [id number] [facility] 2000-12-25 21:52:00 2000-12-26 00:15:00 Emergency ER GISELA RIOS [facility] [id number] [facility] 2000-12-23 18:51:00 2000-12-23 22:00:00 Emergency ER HUGO COFFMAN [facility] [id number] [facility] 1999-10-26 21:11:00 1999-10-27 00:20:00 Emergency ER JW SOLORZANO [facility] [id number] [facility] Results Test Description Test Time Test Comments [...] clear. There are nosuspicious focal osseous lesions. [id number] 04:38:58* Test Item Value Reference Range Interpretation Comme nts LIPASE (test code = 2896099060) 136 U/L 0-220 Lab Interpretation (test cod e = 32615-8) [facility] [id number] 04:19:14* Test Item Value Reference Range Interpretation [...] 32.2 g/dL 31.6-35.1 RDW-SD (test code = 86757-4) 50.2 fL 39.0-49.9 H RDW-CV (test code = 788-0) 17.3 % 12.0-15.5 H PLT (test code = 777-3) 377 166-358 H MPV (test code = 56772-3) 9.4 fL 9.5-12.9 L NRBC/100 WBC (test code = 9972079674) 0.0 0.0-10.0 NRBC x10^3 (test code = 9431823622) See_Comment [Automated messa ge] The system which generated this result transmitted reference range: 10*3/?L. The reference range was not used to interpret this result as normal/abnormal. GRAN MAT (NEUT) % (test code = 770-8) 65.3 % IMM GRAN % (test code = 1253684967) 0.40 % LYMPH % (test code = 736-9) 26.1 % MONO % (test code = 5905-5) 6.2 % EOS % (test code = 713-8) 1.6 % BASO % (test code = 706-2) 0.4 % GRAN MAT x10^3(ANC) (test code = 3394076513) 7.33 10*3/uL 1.88-7.09 H IMM GRAN x10^3 (test code = 7478932635) 0.04 10*3/uL 0.00-0.06 LYMPH x10^3 (test code = 731-0) 2.93 10*3/uL 1.32-3.29 MONO x10^3 (test code = 742-7) 0.70 10*3/uL 0.33-0.92 EOS x10^3 (test code = 711-2) 0.18 10*3/uL 0.03-0.39 BASO x10^3 (test code = 704-7) 0.05 10*3/uL 0.01-0.07 Lab Interpretation (test code = 44454-4) Abnormal [facility] [id number] 03:40:00* Test Item Value Reference Range Interpretation Comme nts POCT PREG (test code = 1605) Negative On board controls acceptable with C Line (test code = 3574) Yes POCT PREG LOT # (test code = 3575) [id number] POCT PREG TEST DATE ( test code = 3576) 2024-10-13 Lab Interpretation (test cod e = 19411-5) [facility] [id number] 04:35:04Ordering physician: ROBERTO RICHARDS INDICATION: Abdominal pain COMPARISON: CT of the abdomen and pelv is dated 03/09/2023 FINDINGS: Supine AP view of the abdomen and pelvis. There is no bowelobstruction or generalized constipation.[facility] [id number] 02:30:00* Test Item Value Reference Range Interpretation Comme nts POCT PREG (test code = 1605) Negative On board controls acceptable with C Line (test code = 3574) Yes POCT PREG LOT # (test code = 3575) [id number] POCT PREG TEST DATE ( test code = 3576) 2024-09-15 Lab Interpretation (test cod e = 66217-7) [facility] [id number] 00:05:06* Test Item Value Reference Range Interpretation [...] 34.2 g/dL 31.6-35.1 RDW-SD (test code = 64709-0) 41.5 fL 39.0-49.9 RDW-CV (test code = 788-0) 14.5 % 12.0-15.5 PLT (test code = 777-3) 384 See_Comment H [Automated [employer]] The system which generated this result transmitted reference range: 166 - 358 10*3/?L. The reference range was not used to interpret this result as normal/abnormal. MPV (test code = 47177-0) 9.6 fL 9.5-12.9 GRAN MAT (NEUT) % (test code = 770-8) 66.0 % IMM GRAN % (test code = 8946380018) 0.50 % LYMPH % (test code = 736-9) 27.4 % MONO % (test code = 5905-5) 4.6 % EOS % (test code = 713-8) 1.1 % BASO % (test code = 706-2) 0.4 % GRAN MAT x10^3(ANC) (test code = 7194298185) 7.96 10*3/uL 1.88-7.09 H IMM GRAN x10^3 (test code = 3331411163) 0.06 10*3/uL 0.00-0.06 LYMPH x10^3 (test code = 731-0) 3.30 10*3/uL 1.32-3.29 H MONO x10^3 (test code = 742-7) 0.56 10*3/uL 0.33-0.92 EOS x10^3 (test code = 711-2) 0.13 10*3/uL 0.03-0.39 BASO x10^3 (test code = 704-7) 0.05 10*3/uL 0.01-0.07 Lab Interpretation (test code = 52869-7) [facility]normal [facility] (69945)2023-05-09 23:27:13* Test Item Value Reference Range Interpretation Comme nts NA (test code = 9664209753) 137 mmol/L 135-145 K (test code = 9588921587) 3.3 mmol/L 3.5-5.0 L CL (test code = 4187218028) 103 mmol/L 98-108 CO2 TOTAL (test code = 1050455974) 20 mmol/L 23-31 L AGAP (test code = 9642209381) 14 2-16 BUN (test code = 5930022788) 5 mg/dL 7-23 L GLUCOSE (test code = 5695279237) 146 mg/dL 70-110 H CREATININE (test code = 3595457628) 0.60 mg/dL 0.50-1.04 TOTAL BILI (test code = 9975903701) 0.3 mg/dL 0.1-1.1 CALCIUM (test code = 5316603559) 9.3 mg/dL 8.6-10.6 T PROTEIN (test code = 4515136121) 7.9 g/dL 6.3-8.2 ALBUMIN (test code = 8515219627) 4.4 g/dL 3.5-5.0 ALK PHOS (test code = 4584721854) 105 U/L 34-122 ALTv (test code = 1742-6) 38 U/L 5-35 H AST(SGOT) (test code = 7932944098) 21 U/L 13-40 eGFR (test code = 80078-4) 113.7 mL/min/1.73m2 CKD-EPI eGFR (2020). Assuming creatinine has been stable day-to-day for at least three months, the eGFR indicates Category G1 (>= 90 mL/min/1.73 m2) Lab Interpretation (test code = 05633-3) [facility] 23:27:13* Test Item Value Reference Range Interpretation Comme nts LIPASE (test code = 5200557736) 142 U/L 0-220 Lab Interpretation (test cod e = 59610-5) [facility] (88605)2023-04-30 23:41:47* Test Item Value Reference Range Interpretation Comme nts NA (test code = 7388505771) 139 mmol/L 135-145 K (test code = 4220051978) 3.3 mmol/L 3.5-5.0 L CL (test code = 0842630803) 105 mmol/L 98-108 CO2 TOTAL (test code = 5620193826) 20 mmol/L 23-31 L AGAP (test code = 5345997197) 14 2-16 BUN (test code = 5278883210) 6 mg/dL 7-23 L GLUCOSE (test code = 6459518405) 119 mg/dL 70-110 H CREATININE (test code = 5517988101) 0.59 mg/dL 0.50-1.04 TOTAL BILI (test code = 5642007190) 0.3 mg/dL 0.1-1.1 CALCIUM (test code = 0749726638) 9.7 mg/dL 8.6-10.6 T PROTEIN (test code = 3300387902) 7.6 g/dL 6.3-8.2 ALBUMIN (test code = 6352649265) 4.2 g/dL 3.5-5.0 ALK PHOS (test code = 8181563273) 78 U/L 34-122 ALTv (test code = 1742-6) 24 U/L 5-35 AST(SGOT) (test code = 1244041982) 24 U/L 13-40 eGFR (test code = 4027133777) 110.7 mL/min/1.73m2 DARWIN (test code = DARWIN) [...] imaging tests). Lab Interpretation (test code = 93244-7) Abnormal [facility] WITH [id number] 23:29:07* Test Item Value Reference Range Interpretation Comme nts WBC (test code = 6690-2) 11.56 See_Comment H [Automated [employer]] The system which generated this result transmitted reference range: 4.30 - 11.10 10*3/?L. The reference range was not used to interpret this result as normal/abnormal. RBC (test code = 789-8) 5.02 See_Comment [Automated [employer]] The system which generated this result transmitted [...] 33.7 g/dL 31.6-35.1 RDW-SD (test code = 60564-9) 41.5 fL 39.0-49.9 RDW-CV (test code = 788-0) 14.3 % 12.0-15.5 PLT (test code = 777-3) 335 See_Comment [Automated messa ge] The system which generated this result transmitted reference range: 166 - 358 10*3/?L. The reference range was not used to interpret this result as normal/abnormal. MPV (test code = 03003-2) 9.7 fL 9.5-12.9 NRBC/100 WBC (test code = 8930853758) 0.0 See_Comment [Automated [employer] ss[employer]] The system which generated this result transmitted reference range: 0.0 - 10.0 /100 WBCs. The reference range was not used to interpret this result as normal/abnormal. NRBC x10^3 (test code = 8745109522) See_Comment [Automated [employer] ge] The system which generated this result transmitted reference range: 10*3/?L. The reference range was not used to interpret this result as normal/abnormal. GRAN MAT (NEUT) % (test code = 770-8) 65.7 % IMM GRAN % (test code = 4132918972) 0.50 % LYMPH % (test code = 736-9) 25.4 % MONO % (test code = 5905-5) 6.7 % EOS % (test code = 713-8) 1.2 % BASO % (test code = 706-2) 0.5 % GRAN MAT x10^3(ANC) (test code = 5782125378) 7.59 10*3/uL 1.88-7.09 H IMM GRAN x10^3 (test code = 3790924401) 0.06 10*3/uL 0.00-0.06 LYMPH x10^3 (test code = 731-0) 2.94 10*3/uL 1.32-3.29 MONO x10^3 (test code = 742-7) 0.77 10*3/uL 0.33-0.92 EOS x10^3 (test code = 711-2) 0.14 10*3/uL 0.03-0.39 BASO x10^3 (test code = 704-7) 0.06 10*3/uL 0.01-0.07 Lab Interpretation (test code = 88950-8) [facility] [id number] 22:59:00* Test Item Value Reference Range Interpretation Comme nts POCT PREG (test code = 1605) Negative On board controls acceptable with C Line (test code = 3574) Yes POCT PREG LOT # (test code = 3575) [id number] POCT PREG TEST DATE ( test code = 3576) 07/10/2024 Lab Interpretation (test cod e = 31624-4) Normal [facility] [id number] 02:36:34* Test Item Value Reference Range Interpretation Comme nts TROPONIN I (test code = 0852753539) 0.000 ng/mL <=0.034 DARWIN (test code = [...] of biotin. Lab Interpretation (test code = 30226-5) Normal [facility] [id number] 02:34:17* Test Item Value Reference Range Interpretation Comme nts NT-proBNP (test code = 79885-1) 40 pg/mL <=125 Lab Interpretation (test cod e = 80077-1) Normal [facility] THRMPLAS [id number] 02:33:37* Test Item Value Reference Range Interpretation Comme nts APTT Patient (test code = 3173-2) 25 See_Comment [Automated message] The system which generated this result transmitted reference range: 23 - 38 Seconds. The reference range was not used to interpret this result as normal/abnormal. DARWIN (test code = DARWIN) The [facility] patient population mean normal value for aPTT is 30 seconds. Lab Interpretation (test code = 92203-7) Normal [facility] / [id number] 02:31:36* Test Item Value Reference Range Interpretation Comme nts PROTIME PATIENT (test code = 5964-2) 12.6 See_Comment [Automated [employer]] The system which generated this result transmitted reference range: 12.0 - 14.7 Seconds. The reference range was not used to interpret this result as normal/abnormal. INR (test code = 6301-6) 1.0 Normal INR <1.1; Warfarin Therapeutic range 2.0 to 3.0 or 2.5 to 3.5, depending upon the indications. Lab Interpretation (test code = 87691-1) [facility] (55261)2023-04-17 02:24:56* Test Item Value Reference Range Interpretation Comme nts NA (test code = 1727678794) 142 mmol/L 135-145 K (test code = 2080350932) 3.1 mmol/L 3.5-5.0 L CL (test code = 0135322321) 108 mmol/L 98-108 CO2 TOTAL (test code = 9001218379) 20 mmol/L 23-31 L AGAP (test code = 3403519809) 14 2-16 BUN (test code = 1732835895) 4 mg/dL 7-23 L GLUCOSE (test code = 5342190130) 107 mg/dL 70-110 CREATININE (test code = 8448858293) 0.61 mg/dL 0.50-1.04 TOTAL BILI (test code = 6040846297) 0.2 mg/dL 0.1-1.1 CALCIUM (test code = 6564176350) 9.1 mg/dL 8.6-10.6 T PROTEIN (test code = 4812102358) 7.0 g/dL 6.3-8.2 ALBUMIN (test code = 4623756166) 3.9 g/dL 3.5-5.0 ALK PHOS (test code = 1528918407) 69 U/L 34-122 ALTv (test code = 1742-6) 21 U/L 5-35 AST(SGOT) (test code = 0195284737) 21 U/L 13-40 eGFR (test code = 0550201157) 106.5 mL/min/1.73m2 DARWIN (test code = DARWIN) [...] imaging tests). Lab Interpretation (test code = 03401-5) [facility] Test Item Value Reference Range Interpretation Comme nts LIPASE (test code = 1330364724) 104 U/L 0-220 Lab Interpretation (test cod e = 05882-8) [id number] 02:13:31* Test Item Value Reference Range Interpretation Comme nts WBC (test code = 6690-2) 10.74 See_Comment [Automated [employer]] The system which generated this result transmitted [...] 34.5 g/dL 31.6-35.1 RDW-SD (test code = 35503-2) 39.1 fL 39.0-49.9 RDW-CV (test code = 788-0) 13.5 % 12.0-15.5 PLT (test code = 777-3) 324 See_Comment [Automated messa ge] The system which generated this result transmitted reference range: 166 - 358 10*3/?L. The reference range was not used to interpret this result as normal/abnormal. MPV (test code = 29286-7) 9.3 fL 9.5-12.9 L NRBC/100 WBC (test code = 9813144146) 0.0 See_Comment [Automated [employer] ssage] The system which generated this result transmitted reference range: 0.0 - 10.0 /100 WBCs. The reference range was not used to interpret this result as normal/abnormal. NRBC x10^3 (test code = 2481364306) See_Comment [Automated messa ge] The system which generated this result transmitted reference range: 10*3/?L. The reference range was not used to interpret this result as normal/abnormal. GRAN MAT (NEUT) % (test code = 770-8) 65.2 % IMM GRAN % (test code = 5126781503) 0.40 % LYMPH % (test code = 736-9) 26.5 % MONO % (test code = 5905-5) 5.8 % EOS % (test code = 713-8) 1.7 % BASO % (test code = 706-2) 0.4 % GRAN MAT x10^3(ANC) (test code = 7783972517) 7.01 10*3/uL 1.88-7.09 IMM GRAN x10^3 (test code = 7097453134) 0.04 10*3/uL 0.00-0.06 LYMPH x10^3 (test code = 731-0) 2.85 10*3/uL 1.32-3.29 MONO x10^3 (test code = 742-7) 0.62 10*3/uL 0.33-0.92 EOS x10^3 (test code = 711-2) 0.18 10*3/uL 0.03-0.39 BASO x10^3 (test code = 704-7) 0.04 10*3/uL 0.01-0.07 Lab Interpretation (test code = 20203-9) [id number]:11[facility]00* Test Item Value Reference Range Interpretation Comme nts POCT PREG (test code = 1605) Negative On board controls acceptable with C Line (test code = 3574) Yes POCT PREG LOT # (test code = 3575) [id number] POCT PREG TEST DATE ( test code = 3576) 2024-09-04 Lab Interpretation (test cod e = 62641-9) [facility] [id number] 23:59:14* Test Item Value Reference Range Interpretation Comme nts TROPONIN I (test code = 4172993934) 0.000 ng/mL <=0.034 DARWIN (test code = [...] of biotin. Lab Interpretation (test code = 26644-6) Normal [facility]. METABOLIC PANEL (76458)2023-04-08 23:47:52* Test Item Value Reference Range Interpretation Comme nts NA (test code = 7917206227) 138 mmol/L 135-145 K (test code = 7824278084) 3.4 mmol/L 3.5-5.0 L CL (test code = 6257644957) 103 mmol/L 98-108 CO2 TOTAL (test code = 4201380666) 22 mmol/L 23-31 L AGAP (test code = 4020027770) 13 2-16 BUN (test code = 7548682112) 6 mg/dL 7-23 L GLUCOSE (test code = 8570777160) 106 mg/dL 70-110 CREATININE (test code = 1900302994) 0.91 mg/dL 0.50-1.04 TOTAL BILI (test code = 5654308399) 0.2 mg/dL 0.1-1.1 CALCIUM (test code = 4802365593) 8.7 mg/dL 8.6-10.6 T PROTEIN (test code = 5953328634) 7.4 g/dL 6.3-8.2 ALBUMIN (test code = 6498020254) 4.1 g/dL 3.5-5.0 ALK PHOS (test code = 8784248148) 71 U/L 34-122 ALTv (test code = 1742-6) 28 U/L 5-35 AST(SGOT) (test code = 6566811938) 28 U/L 13-40 eGFR (test code = 3607634092) 67.2 mL/min/1.73m2 DARWIN (test code = DARWIN) [...] imaging tests). Lab Interpretation (test code = 54700-5) [facility] 23:47:52* Test Item Value Reference Range Interpretation Comme nts MAGNESIUM (test code = 0436027140) 2.0 mg/dL 1.7-2.4 Lab Interpretation (test cod e = 94124-7) [facility] 23:47:52* Test Item Value Reference Range Interpretation Comme nts LIPASE (test code = 4992757316) 74 U/L 0-220 Lab Interpretation (test cod e = 94782-7) [facility] [id number] 23:36:30* Test Item Value Reference Range Interpretation Comme nts WBC (test code = 6690-2) 9.95 See_Comment [Automated [employer]] The system which generated this result transmitted reference range: 4.30 - 11.10 10*3/?L. The reference range was not used to interpret this result as normal/abnormal. RBC (test code = 789-8) 5.29 See_Comment H [Automated [employer]] The system which generated this result [...] 34.5 g/dL 31.6-35.1 RDW-SD (test code = 61485-5) 39.3 fL 39.0-49.9 RDW-CV (test code = 788-0) 13.6 % 12.0-15.5 PLT (test code = 777-3) 305 See_Comment [Automated messa ge] The system which generated this result transmitted reference range: 166 - 358 10*3/?L. The reference range was not used to interpret this result as normal/abnormal. MPV (test code = 43817-8) 9.6 fL 9.5-12.9 NRBC/100 WBC (test code = 2293786683) 0.0 See_Comment [Automated [employer] ssage] The system which generated this result transmitted reference range: 0.0 - 10.0 /100 WBCs. The reference range was not used to interpret this result as normal/abnormal. NRBC x10^3 (test code = 3345448811) See_Comment [Automated messa ge] The system which generated this result transmitted reference range: 10*3/?L. The reference range was not used to interpret this result as normal/abnormal. GRAN MAT (NEUT) % (test code = 770-8) 66.5 % IMM GRAN % (test code = 6233165972) 0.30 % LYMPH % (test code = 736-9) 25.3 % MONO % (test code = 5905-5) 5.2 % EOS % (test code = 713-8) 2.3 % BASO % (test code = 706-2) 0.4 % GRAN MAT x10^3(ANC) (test code = 1291692408) 6.61 10*3/uL 1.88-7.09 IMM GRAN x10^3 (test code = 0696195125) 0.03 10*3/uL 0.00-0.06 LYMPH x10^3 (test code = 731-0) 2.52 10*3/uL 1.32-3.29 MONO x10^3 (test code = 742-7) 0.52 10*3/uL 0.33-0.92 EOS x10^3 (test code = 711-2) 0.23 10*3/uL 0.03-0.39 BASO x10^3 (test code = 704-7) 0.04 10*3/uL 0.01-0.07 Lab Interpretation (test code = 39340-7) Abnormal [facility] [id number] 02:51:00* Test Item Value Reference Range Interpretation Comme nts POCT PREG (test code = 1605) Negative On board controls acceptable with C Line (test code = 3574) Yes POCT PREG LOT # (test code = 3575) [id number] POCT PREG TEST DATE ( test code = 3576) 07/10/2024 Lab Interpretation (test cod e = 10535-8) Normal [facility] [id number] 03:26:00* Test Item Value Reference Range Interpretation Comme nts POCT PREG (test code = 1605) Negative On board controls acceptable with C Line (test code = 3574) Yes POCT PREG LOT # (test code = 3575) [id number] POCT PREG TEST DATE ( test code = 3576) Lab Interpretation (test cod e = 11223-4) [facility] 22:35:38* Test Item Value Reference Range Interpretation Comme nts LIPASE (test code = 9656501738) 2049 U/L 0-220 H Lab Interpretation (test cod e = 35079-0) Abnormal [facility] WITH [id number] 22:30:10* Test Item Value Reference Range Interpretation [...] 34.6 g/dL 31.6-35.1 RDW-SD (test code = 88244-3) 42.7 fL 39.0-49.9 RDW-CV (test code = 788-0) 14.6 % 12.0-15.5 PLT (test code = 777-3) 331 See_Comment [Automated messa ge] The system which generated this result transmitted reference range: 166 - 358 10*3/?L. The reference range was not used to interpret this result as normal/abnormal. MPV (test code = 22333-2) 9.7 fL 9.5-12.9 NRBC/100 WBC (test code = 5271010369) 0.0 See_Comment [Automated me ssage] The system which generated this result transmitted reference range: 0.0 - 10.0 /100 WBCs. The reference range was not used to interpret this result as normal/abnormal. NRBC x10^3 (test code = 9774982126) See_Comment [Automated [employer]] The system which generated this result transmitted reference range: 10*3/?L. The reference range was not used to interpret this result as normal/abnormal. GRAN MAT (NEUT) % (test code = 770-8) 65.7 % IMM GRAN % (test code = 0202511477) 0.50 % LYMPH % (test code = 736-9) 26.5 % MONO % (test code = 5905-5) 5.4 % EOS % (test code = 713-8) 1.5 % BASO % (test code = 706-2) 0.4 % GRAN MAT x10^3(ANC) (test code = 2875392703) 8.05 10*3/uL 1.88-7.09 H IMM GRAN x10^3 (test code = 0228425366) 0.06 10*3/uL 0.00-0.06 LYMPH x10^3 (test code = 731-0) 3.24 10*3/uL 1.32-3.29 MONO x10^3 (test code = 742-7) 0.66 10*3/uL 0.33-0.92 EOS x10^3 (test code = 711-2) 0.18 10*3/uL 0.03-0.39 BASO x10^3 (test code = 704-7) 0.05 10*3/uL 0.01-0.07 Lab Interpretation (test code = 76344-0) [facility]OLIC [facility] (72946)2023-02-15 22:27:47* Test Item Value Reference Range Interpretation Comme nts NA (test code = 0744689674) 138 mmol/L 135-145 K (test code = 8726130321) 3.7 mmol/L 3.5-5.0 CL (test code = 9610781787) 105 mmol/L 98-108 CO2 TOTAL (test code = 4670649010) 23 mmol/L 23-31 AGAP (test code = 5336238056) 10 2-16 BUN (test code = 5187837346) 6 mg/dL 7-23 L GLUCOSE (test code = 6561369608) 92 mg/dL 70-110 CREATININE (test code = 6690479833) 0.77 mg/dL 0.50-1.04 TOTAL BILI (test code = 4975828965) 0.7 mg/dL 0.1-1.1 CALCIUM (test code = 4027802297) 9.0 mg/dL 8.6-10.6 T PROTEIN (test code = 3742090210) 7.5 g/dL 6.3-8.2 ALBUMIN (test code = 8761581063) 4.0 g/dL 3.5-5.0 ALK PHOS (test code = 1222286078) 101 U/L 34-122 ALTv (test code = 1742-6) 25 U/L 5-35 AST(SGOT) (test code = 5207513926) 36 U/L 13-40 eGFR (test code = 0125407136) 81.8 mL/min/1.73m2 DARWIN (test code = DARWIN) [...] imaging tests). Lab Interpretation (test code = 77437-7) [facility]YWEER9811-92-74 20:56:28* Test Item Value Reference Range Interpretation Comments D-DIMER (test code = 9821627944) 0.44 See_Comment H [Automated message] The system [...] a diagnosis. Lab Interpretation (test code = 63184-8) Abnormal [facility] [id number] 01:15:16* Test Item Value Reference Range Interpretation Comments TROPONIN I (test code = 2385883512) 0.001 ng/mL See_Comment [Automated message] The system [...] of biotin. Lab Interpretation (test code = 48140-2) Normal [facility] [id number] 22:52:31* Test Item Value Reference Range Interpretation Comments TROPONIN I (test code = 1661647062) 0.001 ng/mL See_Comment [Automated message] The system [...] of biotin. Lab Interpretation (test code = 80499-6) Normal [facility] [id number] 22:49:33* Test Item Value Reference Range Interpretation Comme nts NT-proBNP (test code = 0173047261) 145 pg/mL See_Comment H [Automated message] The system which generated this result transmitted reference range: <=125. The reference range was not used to interpret this result as normal/abnormal. DARWIN (test code = DARWIN) Biotin has been reported to cause a negative bias, interpret results relative to patient's use of biotin. Lab Interpretation (test code = 25206-8) Abnormal [facility] METABOLIC PANEL (NA, K, CL, CO2, GLUCOSE, BUN, CREATININE, CA)2022-01-09 22:40:32* Test Item Value Reference Range Interpretation Comme nts NA (test code = 5665380213) 142 mmol/L 135-145 K (test code = 5479867745) 3.3 mmol/L 3.5-5.0 L CL (test code = 1060355350) 109 mmol/L 98-108 H CO2 TOTAL (test code = 1317569843) 22 mmol/L 23-31 L AGAP (test code = 6825878494) 2-16 BUN (test code = 4621718201) 9 mg/dL 7-23 GLUCOSE (test code = 7112825563) 116 mg/dL 70-110 H CREATININE (test code = 9863784508) 0.69 mg/dL 0.50-1.04 CALCIUM (test code = 8312410201) 9.2 mg/dL 8.6-10.6 eGFR (test code = 5189925889) mL/min/1.73m2 DARWIN (test code = DARWIN) Association [...] imaging tests). Lab Interpretation (test code = 72017-5) Abnormal [facility] WITH [id number] 22:29:09* Test Item Value Reference Range Interpretation Comme nts WBC (test code = 6690-2) See_Comment [[employer]] The system which generated this result transmitted reference range: 4.30 - 11.10 10*3/?L. The reference range was not used to interpret this result as normal/abnormal. RBC (test code = 789-8) See_Comment [[employer]] The system which generated this result transmitted [...] 34.4 g/dL 31.6-35.1 RDW-SD (test code = 75028-2) 40.7 fL 39.0-49.9 RDW-CV (test code = 788-0) 14.1 % 12.0-15.5 PLT (test code = 777-3) See_Comment [Automated messa ge] The system which generated this result transmitted reference range: 166 - 358 10*3/?L. The reference range was not used to interpret this result as normal/abnormal. MPV (test code = 02601-6) 9.6 fL 9.5-12.9 NRBC/100 WBC (test code = 3519289917) See_Comment [Automated [employer]] The system which generated this result transmitted reference range: 0.0 - 10.0 /100 WBCs. The reference range was not used to interpret this result as normal/abnormal. NRBC x10^3 (test code = 2520962018) <0.01 See_Comment [Automated messa ge] The system which generated this result transmitted reference range: 10*3/?L. The reference range was not used to interpret this result as normal/abnormal. GRAN MAT (NEUT) % (test code = 770-8) 54.7 % IMM GRAN % (test code = 1156861551) 0.40 % LYMPH % (test code = 736-9) 33.8 % MONO % (test code = 5905-5) 7.1 % EOS % (test code = 713-8) 3.3 % BASO % (test code = 706-2) 0.7 % GRAN MAT x10^3(ANC) (test code = 3634205486) 4.87 10*3/uL 1.88-7.09 IMM GRAN x10^3 (test code = 5008295355) 0.04 10*3/uL 0.00-0.06 LYMPH x10^3 (test code = 731-0) 3.01 10*3/uL 1.32-3.29 MONO x10^3 (test code = 742-7) 0.63 10*3/uL 0.33-0.92 EOS x10^3 (test code = 711-2) 0.29 10*3/uL 0.03-0.39 BASO x10^3 (test code = 704-7) 0.06 10*3/uL 0.01-0.07 Lab Interpretation (test code = 57662-7) [facility] [id number] 06:45:45* Test Item Value Reference Range Interpretation Comments TROPONIN I (test code = 3992230950) 0.000 ng/mL See_Comment [Automated message] The system [...] of biotin. Lab Interpretation (test code = 95955-9) Normal [facility]ATING [id number] 05:00:55 * Test Item Value Reference Range Interpretation Comme nts TSH (test code = 4079713678) See_Comment [Automated [employer]] The system which generated this result transmitted reference range: 0.45 - 4.70 mIU/L. The reference range was not used to interpret this result as normal/abnormal. Lab Interpretation (test code = 83633-7) Normal [facility] [id number] 04:47:50* Test Item Value Reference Range Interpretation Comme nts FREE T4 (test code = 8842638802) See_Comment [Automated [employer]] The system which generated this result transmitted reference range: 0.78 - 2.20 ng/dL:. The reference range was not used to interpret this result as normal/abnormal. Lab Interpretation (test code = 43491-1) Normal [facility] [id number] 04:47:10* Test Item Value Reference Range Interpretation Comme nts FREE T3 (test code = 2633860721) 4.37 pg/mL 2.77-5.27 Lab Interpretation (test cod e = 48217-2) [facility] [id number] 04:42:07* Test Item Value Reference Range Interpretation Comments TROPONIN I (test code = 3178401218) 0.001 ng/mL See_Comment [Automated message] The system [...] of biotin. Lab Interpretation (test code = 64127-0) [facility] (37549)2021-12-14 04:30:28* Test Item Value Reference Range Interpretation Comme nts NA (test code = 8173270200) 141 mmol/L 135-145 K (test code = 1328480197) 3.6 mmol/L 3.5-5.0 CL (test code = 6493326488) 111 mmol/L 98-108 H CO2 TOTAL (test code = 1911186664) 19 mmol/L 23-31 L AGAP (test code = 9957961350) 2-16 BUN (test code = 2987562761) 15 mg/dL 7-23 GLUCOSE (test code = 5873678065) 113 mg/dL 70-110 H CREATININE (test code = 1775637074) 1.05 mg/dL 0.50-1.04 H TOTAL BILI (test code = 9109930418) 0.2 mg/dL 0.1-1.1 CALCIUM (test code = 6726702913) 9.8 mg/dL 8.6-10.6 T PROTEIN (test code = 4907632778) 6.8 g/dL 6.3-8.2 ALBUMIN (test code = 4064002542) 4.2 g/dL 3.5-5.0 ALK PHOS (test code = 7562703316) 73 U/L 34-122 ALTv (test code = 1742-6) 16 U/L 5-35 AST(SGOT) (test code = 6423777204) 19 U/L 13-40 eGFR (test code = 3054939571) mL/min/1.73m2 DARWIN (test code = DARWIN) Association [...] imaging tests). Lab Interpretation (test code = 84732-7) [facility] 04:29:48* Test Item Value Reference Range Interpretation Comme nts LIPASE (test code = 7227093371) 225 U/L 0-220 H Lab Interpretation (test cod e = 26839-3) [facility] [id number] 04:20:00* Test Item Value Reference Range Interpretation Comme nts POCT PREG (test code = 1605) negative On board controls acceptable with C Line (test code = 3574) present POCT PREG LOT # (test code = 3575) [id number] POCT PREG TEST DATE ( test code = 3576) 2023-05-07 Lab Interpretation (test cod e = 68156-7) Normal [facility] WITH [id number] 04:01:25* Test Item Value Reference Range Interpretation [...] 34.3 g/dL 31.6-35.1 RDW-SD (test code = 51903-8) 39.5 fL 39.0-49.9 RDW-CV (test code = 788-0) 13.6 % 12.0-15.5 PLT (test code = 777-3) See_Comment [Automated messa ge] The system which generated this result transmitted reference range: 166 - 358 10*3/?L. The reference range was not used to interpret this result as normal/abnormal. MPV (test code = 72546-3) 9.9 fL 9.5-12.9 NRBC/100 WBC (test code = 9383900588) See_Comment [Automated me ssage] The system which generated this result transmitted reference range: 0.0 - 10.0 /100 WBCs. The reference range was not used to interpret this result as normal/abnormal. NRBC x10^3 (test code = 5472664284) <0.01 See_Comment [Automated messa ge] The system which generated this result transmitted reference range: 10*3/?L. The reference range was not used to interpret this result as normal/abnormal. GRAN MAT (NEUT) % (test code = 770-8) 51.5 % IMM GRAN % (test code = 3442536929) 0.50 % LYMPH % (test code = 736-9) 35.8 % MONO % (test code = 5905-5) 9.4 % EOS % (test code = 713-8) 2.2 % BASO % (test code = 706-2) 0.6 % GRAN MAT x10^3(ANC) (test code = 3569727993) 5.37 10*3/uL 1.88-7.09 IMM GRAN x10^3 (test code = 7194193321) 0.05 10*3/uL 0.00-0.06 LYMPH x10^3 (test code = 731-0) 3.73 10*3/uL 1.32-3.29 H MONO x10^3 (test code = 742-7) 0.98 10*3/uL 0.33-0.92 H EOS x10^3 (test code = 711-2) 0.23 10*3/uL 0.03-0.39 BASO x10^3 (test code = 704-7) 0.06 10*3/uL 0.01-0.07 Lab Interpretation (test code = 73628-9) Abnormal [facility] [id number] 04:04:13* Test Item Value Reference Range Interpretation Comments TROPONIN I (test code = 7019904378) 0.001 ng/mL See_Comment [Automated message] The system which generated this result transmitted reference range: <=0.034. The reference range was not used to interpret this result as normal/abnormal. DRAWIN (test code = DARWIN) Reference (Normal) Range [...] of biotin. Lab Interpretation (test code = 06390-2) [facility] [id number] 02:56:00* Test Item Value Reference Range Interpretation Comme nts POCT PREG (test code = 1605) negative On board controls acceptable with C Line (test code = 3574) present POCT PREG LOT # (test code = 3575) [id number] POCT PREG TEST DATE ( test code = 3576) 2023-04-06 Lab Interpretation (test cod e = 57547-2) [facility] [id number] 02:15:30* Test Item Value Reference Range Interpretation Comments TROPONIN I (test code = 5044422024) 0.000 ng/mL See_Comment [Automated message] The system [...] of biotin. Lab Interpretation (test code = 66443-3) Normal [facility] [id number]-[id number] 02:12:14* Test Item Value Reference Range Interpretation Comme nts NT-proBNP (test code = 9480121129) 109 pg/mL See_Comment [Automated message] The system which generated this result transmitted reference range: <=125. The reference range was not used to interpret this result as normal/abnormal. DARWIN (test code = DARWIN) Biotin has been reported to cause a negative bias, interpret results relative to patient's use of biotin. Lab Interpretation (test code = 52182-0) Normal [facility]. METABOLIC PANEL (66019)2021-11-12 02:04:12* Test Item Value Reference Range Interpretation Comme nts NA (test code = 0599820455) 140 mmol/L 135-145 K (test code = 8184610532) 4.0 mmol/L 3.5-5.0 CL (test code = 9374420749) 111 mmol/L 98-108 H CO2 TOTAL (test code = 5732334260) 17 mmol/L 23-31 L AGAP (test code = 3661022016) 2-16 BUN (test code = 2266496759) 9 mg/dL 7-23 GLUCOSE (test code = 9671953946) 105 mg/dL 70-110 CREATININE (test code = 4315467307) 0.72 mg/dL 0.50-1.04 TOTAL BILI (test code = 5646008072) 0.4 mg/dL 0.1-1.1 CALCIUM (test code = 9757552406) 9.3 mg/dL 8.6-10.6 T PROTEIN (test code = 5646684715) 6.6 g/dL 6.3-8.2 ALBUMIN (test code = 8642278806) 4.0 g/dL 3.5-5.0 ALK PHOS (test code = 4471330646) 70 U/L 34-122 ALTv (test code = 1742-6) 19 U/L 5-35 AST(SGOT) (test code = 6838823898) 21 U/L 13-40 eGFR (test code = 6024152556) mL/min/1.73m2 DARWIN (test code = DARWIN) Association [...] imaging tests). Lab Interpretation (test code = 16576-5) [facility] 02:03:32* Test Item Value Reference Range Interpretation Comme nts LIPASE (test code = 7014860766) 173 U/L 0-220 Lab Interpretation (test cod e = 05812-1) Normal [facility] WITH [id number] 01:43:53* Test Item Value Reference Range Interpretation Comme nts WBC (test code = 6690-2) See_Comment [Automated [employer]] The system which generated this result transmitted reference range: 4.30 - 11.10 10*3/?L. The reference range was not used to interpret this result as normal/abnormal. RBC (test code = 789-8) See_Comment [Automated [employer]] The system which generated this result transmitted [...] 33.7 g/dL 31.6-35.1 RDW-SD (test code = 38871-7) 41.3 fL 39.0-49.9 RDW-CV (test code = 788-0) 14.3 % 12.0-15.5 PLT (test code = 777-3) See_Comment [Automated messa ge] The system which generated this result transmitted reference range: 166 - 358 10*3/?L. The reference range was not used to interpret this result as normal/abnormal. MPV (test code = 47434-0) 9.7 fL 9.5-12.9 NRBC/100 WBC (test code = 6783900714) See_Comment [Automated [employer]age] The system which generated this result transmitted reference range: 0.0 - 10.0 /100 WBCs. The reference range was not used to interpret this result as normal/abnormal. NRBC x10^3 (test code = 3033097605) <0.01 See_Comment [Automated messa ge] The system which generated this result transmitted reference range: 10*3/?L. The reference range was not used to interpret this result as normal/abnormal. GRAN MAT (NEUT) % (test code = 770-8) 62.6 % IMM GRAN % (test code = 2744336377) 0.50 % LYMPH % (test code = 736-9) 27.0 % MONO % (test code = 5905-5) 6.5 % EOS % (test code = 713-8) 2.9 % BASO % (test code = 706-2) 0.5 % GRAN MAT x10^3(ANC) (test code = 3304764405) 6.30 10*3/uL 1.88-7.09 IMM GRAN x10^3 (test code = 7541882639) 0.05 10*3/uL 0.00-0.06 LYMPH x10^3 (test code = 731-0) 2.71 10*3/uL 1.32-3.29 MONO x10^3 (test code = 742-7) 0.65 10*3/uL 0.33-0.92 EOS x10^3 (test code = 711-2) 0.29 10*3/uL 0.03-0.39 BASO x10^3 (test code = 704-7) 0.05 10*3/uL 0.01-0.07 Lab Interpretation (test code = 94089-9) [facility] [id number] 02:21:00* Test Item Value Reference Range Interpretation Comme nts POCT PREG (test code = 1605) Negative On board controls acceptable with C Line (test code = 3574) Present Lab Interpretation (test cod e = 54662-1) [facility] Metabolic Aghyh7315-19-80 02:05:50* Test Item Value Reference Range Interpretation Comme nts NA (test code = 1820409498) 137 mmol/L 135-145 K (test code = 8039753628) 3.9 mmol/L 3.5-5.0 CL (test code = 0394727892) 109 mmol/L 98-108 H CO2 TOTAL (test code = 0570857538) 19 mmol/L 23-31 L AGAP (test code = 8455091051) 2-16 BUN (test code = 0445159324) 10 mg/dL 7-23 GLUCOSE (test code = 3190055086) 101 mg/dL 70-110 CREATININE (test code = 3644679021) 0.80 mg/dL 0.50-1.04 TOTAL BILI (test code = 4621989115) 0.3 mg/dL 0.1-1.1 CALCIUM (test code = 6015482887) 8.8 mg/dL 8.6-10.6 T PROTEIN (test code = 6664692926) 6.6 g/dL 6.3-8.2 ALBUMIN (test code = 3546469230) 4.0 g/dL 3.5-5.0 ALK PHOS (test code = 4514104713) 71 U/L 34-122 ALTv (test code = 1742-6) 18 U/L 5-35 AST(SGOT) (test code = 5704922340) 20 U/L 13-40 eGFR (test code = 5341758741) mL/min/1.73m2 DARWIN (test code = DARWIN) Association [...] imaging tests). Lab Interpretation (test code = 89229-5) [facility]normal [facility], Qpefh0243-25-71 02:05:25* Test Item Value Reference Range Interpretation Comme nts LIPASE (test code = 5694235700) 96 U/L 0-220 Lab Interpretation (test cod e = 73023-0) [facility] with Iudblhtralys3000-20-24 01:53:06* Test Item Value Reference Range Interpretation Comme nts WBC (test code = 6690-2) See_Comment H [Automated [employer]] The system which generated this result transmitted reference range: 4.30 - 11.10 10*3/?L. The reference range was not used to interpret this result as normal/abnormal. RBC (test code = 789-8) See_Comment H [Automated [employer]] The system which generated this result transmitted [...] 34.3 g/dL 31.6-35.1 RDW-SD (test code = 19911-3) 40.5 fL 39.0-49.9 RDW-CV (test code = 788-0) 14.4 % 12.0-15.5 PLT (test code = 777-3) See_Comment [Automated messa ge] The system which generated this result transmitted reference range: 166 - 358 10*3/?L. The reference range was not used to interpret this result as normal/abnormal. MPV (test code = 34848-2) 9.4 fL 9.5-12.9 L NRBC/100 WBC (test code = 2271089839) See_Comment [Automated [employer] ssage] The system which generated this result transmitted reference range: 0.0 - 10.0 /100 WBCs. The reference range was not used to interpret this result as normal/abnormal. NRBC x10^3 (test code = [id number]) <0.01 See_Comment [Automated messa ge] The system which generated this result transmitted reference range: 10*3/?L. The reference range was not used to interpret this result as normal/abnormal. GRAN MAT (NEUT) % (test code = 770-8) 59.8 % IMM GRAN % (test code = 1899254229) 0.40 % LYMPH % (test code = 736-9) 31.0 % MONO % (test code = 5905-5) 6.3 % EOS % (test code = 713-8) 2.0 % BASO % (test code = 706-2) 0.5 % GRAN MAT x10^3(ANC) (test code = 2292299928) 6.73 10*3/uL 1.88-7.09 IMM GRAN x10^3 (test code = 5362351635) 0.05 10*3/uL 0.00-0.06 LYMPH x10^3 (test code = 731-0) 3.50 10*3/uL 1.32-3.29 H MONO x10^3 (test code = 742-7) 0.71 10*3/uL 0.33-0.92 EOS x10^3 (test code = 711-2) 0.23 10*3/uL 0.03-0.39 BASO x10^3 (test code = 704-7) 0.06 10*3/uL 0.01-0.07 Lab Interpretation (test code = 83726-8) Abnormal [facility] [id number] 01:45:00* Test Item Value Reference Range Interpretation Comme nts POCT PREG (test code = 1605) negatibe On board controls acceptable with C Line (test code = 3574) present POCT PREG LOT # (test code = 3575) [id number] POCT PREG TEST DATE ( test code = 3576) 09/04/2022 Lab Interpretation (test cod e = 15826-7) Normal [facility] [id number] 06:35:00* Test Item Value Reference Range Interpretation Comme nts POCT PREG (test code = 1605) negative On board controls acceptable with C Line (test code = 3574) present POCT PREG LOT # (test code = 3575) [id number] POCT PREG TEST DATE ( test code = 3576) Lab Interpretation (test cod e = 77058-7) [facility] [id number] 09:09:55* Test Item Value Reference Range Interpretation Comments TROPONIN I (test code = 2157723383) 0.001 ng/mL See_Comment [Automated message] The system [...] of biotin. Lab Interpretation (test code = 95630-2) Normal [facility]RDHKE3875-25-13 07:23:51* Test Item Value Reference Range Interpretation Comments D-DIMER (test code = 0646974478) See_Comment [Automated message] The system which generated [...] a diagnosis. Lab Interpretation (test code = 13160-9) Normal [facility] 06:11:26* Test Item Value Reference Range Interpretation Comme nts LIPASE (test code = 3245526392) 155 U/L 0-220 Lab Interpretation (test cod e = 48456-1) Normal [facility] [id number] 06:06:05* Test Item Value Reference Range Interpretation Comments TROPONIN I (test code = 9925944396) 0.002 ng/mL See_Comment [Automated message] The system [...] of biotin. Lab Interpretation (test code = 58377-7) Normal [facility] [id number]-[id number] 06:03:04* Test Item Value Reference Range Interpretation Comme nts NT-proBNP (test code = 3746693774) 19 pg/mL See_Comment [Automated message] The system which generated this result transmitted reference range: <=125. The reference range was not used to interpret this result as normal/abnormal. DARWIN (test code = DARWIN) Biotin has been reported to cause a negative bias, interpret results relative to patient's use of biotin. Lab Interpretation (test code = 38639-5) Normal [facility]COM[facility] METABOLIC PANEL (18919)2021-05-28 05:54:25* Test Item Value Reference Range Interpretation Comme nts NA (test code = 9418428011) 136 mmol/L 135-145 K (test code = 6610065036) 3.2 mmol/L 3.5-5.0 L CL (test code = 7305890337) 109 mmol/L 98-108 H CO2 TOTAL (test code = 0052511110) 16 mmol/L 23-31 L AGAP (test code = 9670873089) 2-16 BUN (test code = 3941112593) 11 mg/dL 7-23 GLUCOSE (test code = 0236575715) 144 mg/dL 70-110 H CREATININE (test code = 9389336804) 0.84 mg/dL 0.50-1.04 TOTAL BILI (test code = 8405715476) 0.2 mg/dL 0.1-1.1 CALCIUM (test code = 4350835254) 9.4 mg/dL 8.6-10.6 T PROTEIN (test code = 3639637222) 6.9 g/dL 6.3-8.2 ALBUMIN (test code = 9850173558) 3.9 g/dL 3.5-5.0 ALK PHOS (test code = 5382239669) 106 U/L 34-122 ALTv (test code = 1742-6) 20 U/L 5-35 AST(SGOT) (test code = 4546162990) 17 U/L 13-40 eGFR (test code = 6852696176) mL/min/1.73m2 DARWIN (test code = DARWIN) Association [...] imaging tests). Lab Interpretation (test code = 42728-0) Abnormal [facility] WITH [id number] 05:40:06* Test Item Value Reference Range Interpretation Comme nts WBC (test code = 6690-2) See_Comment [Automated [employer]] The system which generated this result transmitted reference range: 4.30 - 11.10 10*3/?L. The reference range was not used to interpret this result as normal/abnormal. RBC (test code = 789-8) See_Comment [Automated [employer] ge] The system which generated this result [...] 33.3 g/dL 31.6-35.1 RDW-SD (test code = 94333-9) 39.7 fL 39.0-49.9 RDW-CV (test code = 788-0) 13.6 % 12.0-15.5 PLT (test code = 777-3) See_Comment [Automated [employer] ge] The system which generated this result transmitted reference range: 166 - 358 10*3/?L. The reference range was not used to interpret this result as normal/abnormal. MPV (test code = 59595-5) 9.5 fL 9.5-12.9 NRBC/100 WBC (test code = 7070019489) See_Comment [Automated [employer] ssage] The system which generated this result transmitted reference range: 0.0 - 10.0 /100 WBCs. The reference range was not used to interpret this result as normal/abnormal. NRBC x10^3 (test code = 7402797202) <0.01 See_Comment [Automated [employer]] The system which generated this result transmitted reference range: 10*3/?L. The reference range was not used to interpret this result as normal/abnormal. GRAN MAT (NEUT) % (test code = 770-8) 53.7 % IMM GRAN % (test code = 1831631725) 0.50 % LYMPH % (test code = 736-9) 36.0 % MONO % (test code = 5905-5) 6.3 % EOS % (test code = 713-8) 2.8 % BASO % (test code = 706-2) 0.7 % GRAN MAT x10^3(ANC) (test code = 9858886752) 5.38 10*3/uL 1.88-7.09 IMM GRAN x10^3 (test code = 2915763226) 0.05 10*3/uL 0.00-0.06 LYMPH x10^3 (test code = 731-0) 3.60 10*3/uL 1.32-3.29 H MONO x10^3 (test code = 742-7) 0.63 10*3/uL 0.33-0.92 EOS x10^3 (test code = 711-2) 0.28 10*3/uL 0.03-0.39 BASO x10^3 (test code = 704-7) 0.07 10*3/uL 0.01-0.07 Lab Interpretation (test code = 65410-7) [facility]normal [facility] [id number] 05:32:00* Test Item Value Reference Range Interpretation Comme nts POCT PREG (test code = 1605) negative On board controls acceptable with C Line (test code = 3574) present POCT PREG LOT # (test code = 3575) [id number] POCT PREG TEST DATE ( test code = 3576) 08/07/2022 Lab Interpretation (test cod e = 46431-6) Normal [facility] HospitalTroponin [id number] 11:13:57* Test Item Value Reference Range Interpretation Comments TROPONIN I (test code = 6398841880) 0.002 ng/mL See_Comment [Automated message] The system [...] of biotin. Lab Interpretation (test code = 49228-2) Normal [facility] Metabolic Panel (NA, K, CL, CO2, GLUCOSE, BUN, CREATININE, CA)2021-04-08 11:04:34* Test Item Value Reference Range Interpretation Comme nts NA (test code = 4402636144) 140 mmol/L 135-145 K (test code = 6097266539) 3.6 mmol/L 3.5-5.0 CL (test code = 1645303867) 111 mmol/L 98-108 H CO2 TOTAL (test code = 6619227393) 22 mmol/L 23-31 L AGAP (test code = 4142878588) 2-16 BUN (test code = 5831735546) 10 mg/dL 7-23 GLUCOSE (test code = 2100600409) 104 mg/dL 70-110 CREATININE (test code = 6702018010) 0.70 mg/dL 0.50-1.04 CALCIUM (test code = 8653554385) 8.7 mg/dL 8.6-10.6 eGFR (test code = 8702948121) mL/min/1.73m2 DARWIN (test code = DARWIN) Association [...] imaging tests). Lab Interpretation (test code = 95328-6) Abnormal [facility] with Vtcxfhgzvywv6208-36-95 10:46:50* Test Item Value Reference Range Interpretation Comme nts WBC (test code = 6690-2) See_Comment [Automated [employer]] The system which generated this result transmitted reference range: 4.30 - 11.10 10*3/?L. The reference range was not used to interpret this result as normal/abnormal. RBC (test code = 789-8) See_Comment [Automated [employer]] The system which generated this result transmitted [...] 33.5 g/dL 31.6-35.1 RDW-SD (test code = 87254-6) 42.0 fL 39.0-49.9 RDW-CV (test code = 788-0) 14.1 % 12.0-15.5 PLT (test code = 777-3) See_Comment [Automated [employer]] The system which generated this result transmitted reference range: 166 - 358 10*3/?L. The reference range was not used to interpret this result as normal/abnormal. MPV (test code = 58506-4) 10.0 fL 9.5-12.9 NRBC/100 WBC (test code = 7675521447) See_Comment [Automated me ssage] The system which generated this result transmitted reference range: 0.0 - 10.0 /100 WBCs. The reference range was not used to interpret this result as normal/abnormal. NRBC x10^3 (test code = 7653353674) <0.01 See_Comment [Automated me ssage] The system which generated this result transmitted reference range: 10*3/?L. The reference range was not used to interpret this result as normal/abnormal. GRAN MAT (NEUT) % (test code = 770-8) 59.1 % IMM GRAN % (test code = 3490313902) 0.70 % LYMPH % (test code = 736-9) 28.2 % MONO % (test code = 5905-5) 8.5 % EOS % (test code = 713-8) 3.0 % BASO % (test code = 706-2) 0.5 % GRAN MAT x10^3(ANC) (test code = 5487741287) 3.61 10*3/uL 1.88-7.09 IMM GRAN x10^3 (test code = 6330491058) 0.04 10*3/uL 0.00-0.06 LYMPH x10^3 (test code = 731-0) 1.72 10*3/uL 1.32-3.29 MONO x10^3 (test code = 742-7) 0.52 10*3/uL 0.33-0.92 EOS x10^3 (test code = 711-2) 0.18 10*3/uL 0.03-0.39 BASO x10^3 (test code = 704-7) 0.03 10*3/uL 0.01-0.07 [facility] hospitalru[facility] [id number] 05:54:48* Test Item Value Reference Range Interpretation Comments TROPONIN I (test code = 4351716995) 0.002 ng/mL See_Comment [Automated message] The system [...] of biotin. Lab Interpretation (test code = 88627-4) Normal [facility] HospitalThyroid Stimulating Hormone (TSH)2021-04-08 00:51:16* Test Item Value Reference Range Interpretation Comme nts TSH (test code = 7687307455) See_Comment [Automated [employer]] The system which generated this result transmitted reference range: 0.45 - 4.70 mIU/L. The reference range was not used to interpret this result as normal/abnormal. Lab Interpretation (test code = 84165-4) Normal [facility] HospitalGlycosylated Hemoglobin (A1C)2021-04-08 00:26:53* Test Item Value Reference Range Interpretation Comme nts HGB A1C (test code = 4548-4) 5.5 % 4.0-5.7 DARWIN (test code = DARWIN) Reference RangesNormal: <5.7%Prediabetes: 5.7 - 6.4%Diabetes: > 6.5% Lab Interpretation (test code = 96494-7) Normal [facility] HospitalLipid Panel (Total Cholesterol, Triglycerides, HDL)2021-04-08 00:20:12* Test Item Value Reference Range Interpretation Comme nts CHOL (test code = 4005431208) 223 mg/dL 120-200 H HDL (test code = 8293663551) 35 mg/dL >50 L HDLC RATIO (test code = 3853703132) See_Comment H [Automated [employer]] The system which generated this result transmitted reference range: <=4.5. The reference range was not used to interpret this result as normal/abnormal. TRIG (test code = 0931164978) 223 mg/dL 30-170 H LDL CHOL (test code = 53596-3) 143 mg/dL See_Comment [Automated [employer]] The system which generated this result transmitted reference range: <=160. The reference range was not used to interpret this result as normal/abnormal. VLDL (test code = 2305248797) 45 mg/dL 5-60 Lab Interpretation (test code = 49695-6) Abnormal [facility] HospitalMagnesium Mldzf5242-79-97 00:20:07* Test Item Value Reference Range Interpretation Comme nts MAGNESIUM (test code = 3094716130) 1.7 mg/dL 1.7-2.4 Lab Interpretation (test cod e = 99771-4) Normal [facility]. METABOLIC PANEL (31135)2021-04-07 23:04:13* Test Item Value Reference Range Interpretation Comme nts NA (test code = 0090234582) 139 mmol/L 135-145 K (test code = 4993092097) 3.4 mmol/L 3.5-5.0 L CL (test code = 7701940733) 109 mmol/L 98-108 H CO2 TOTAL (test code = 6675972051) 22 mmol/L 23-31 L AGAP (test code = 2807170849) 2-16 BUN (test code = 7194617561) 10 mg/dL 7-23 GLUCOSE (test code = 8614352674) 97 mg/dL 70-110 CREATININE (test code = 1464383889) 0.84 mg/dL 0.50-1.04 TOTAL BILI (test code = 8801151839) 0.3 mg/dL 0.1-1.1 CALCIUM (test code = 9075072753) 9.2 mg/dL 8.6-10.6 T PROTEIN (test code = 2329998205) 6.6 g/dL 6.3-8.2 ALBUMIN (test code = 2136869434) 3.8 g/dL 3.5-5.0 ALK PHOS (test code = 4350930278) 69 U/L 34-122 ALTv (test code = 1742-6) 18 U/L 5-35 AST(SGOT) (test code = 8126036940) 19 U/L 13-40 eGFR (test code = 2274943437) mL/min/1.73m2 DARWIN (test code = DARWIN) Association [...] imaging tests). Lab Interpretation (test code = 64285-5) Abnormal [facility] HospitalTRCHAYCAYETANON [id number] 22:33:04* Test Item Value Reference Range Interpretation Comments TROPONIN I (test code = 2575261110) 0.001 ng/mL See_Comment [Automated message] The system [...] of biotin. Lab Interpretation (test code = 26960-1) Normal [facility] HospitalN-TERMINAL FFY-MJL5774-17-01 22:30:05* Test Item Value Reference Range Interpretation Comme [facility] NT-proBNP (test code = 5704382406) 352 pg/mL See_Comment H [Automated message] The system which generated this result transmitted reference range: <=125. The reference range was not used to interpret this result as normal/abnormal. DARWIN (test code = DARWIN) Biotin has been reported to cause a negative bias, interpret results relative to patient's use of biotin. Lab Interpretation (test code = 50310-9) Abnormal [facility] HospitalACTIVATED PARTIAL THRMPLAS [id number] 22:28:48* Test Item Value Reference Range Interpretation Comme [facility] APTT Patient (test code = 3173-2) See_Comment [Automated message] The system which generated this result transmitted reference range: 23 - 38 Seconds. The reference range was not used to interpret this result as normal/abnormal. DARWIN (test code = DARWIN) The [facility] patient population mean normal value for aPTT is 30 seconds. Lab Interpretation (test code = 33166-2) Normal [facility] HospitalPROTHROMBIN TIME / [id number] 22:26:44* Test Item Value Reference Range Interpretation Comme [facility] PROTIME PATIENT (test code = 5964-2) See_Comment [Automated messa ge] The system which generated this result transmitted reference range: 12.0 - 14.7 Seconds. The reference range was not used to interpret this result as normal/abnormal. INR (test code = 6301-6) Normal INR <1.1; Warfarin Therapeutic range 2.0 to 3.0 or 2.5 to 3.5, depending upon the indications. Lab Interpretation (test code = 97768-2) Normal [facility] HospitalLIPASE2021-10-01 22:20:05* Test Item Value Reference Range Interpretation Comme [facility] LIPASE (test code = 2593486271) 66 U/L 0-220 Lab Interpretation (test cod e = 19435-1) Normal [facility] WITH [id number] 22:07:01* Test Item Value Reference Range Interpretation [...] 33.2 g/dL 31.6-35.1 RDW-SD (test code = 89508-5) 41.6 fL 39.0-49.9 RDW-CV (test code = 788-0) 14.1 % 12.0-15.5 PLT (test code = 777-3) See_Comment [Automated messa ge] The system which generated this result transmitted reference range: 166 - 358 10*3/?L. The reference range was not used to interpret this result as normal/abnormal. MPV (test code = 85077-0) 9.2 fL 9.5-12.9 L NRBC/100 WBC (test code = 6203512052) See_Comment [Automated [employer] ssage] The system which generated this result transmitted reference range: 0.0 - 10.0 /100 WBCs. The reference range was not used to interpret this result as normal/abnormal. NRBC x10^3 (test code = 1509262949) <0.01 See_Comment [Automated messa ge] The system which generated this result transmitted reference range: 10*3/?L. The reference range was not used to interpret this result as normal/abnormal. GRAN MAT (NEUT) % (test code = 770-8) 61.6 % IMM GRAN % (test code = 7160863685) 0.60 % LYMPH % (test code = 736-9) 28.7 % MONO % (test code = 5905-5) 4.9 % EOS % (test code = 713-8) 3.7 % BASO % (test code = 706-2) 0.5 % GRAN MAT x10^3(ANC) (test code = 1515303484) 6.24 10*3/uL 1.88-7.09 IMM GRAN x10^3 (test code = 4237729447) 0.06 10*3/uL 0.00-0.06 LYMPH x10^3 (test code = 731-0) 2.90 10*3/uL 1.32-3.29 MONO x10^3 (test code = 742-7) 0.50 10*3/uL 0.33-0.92 EOS x10^3 (test code = 711-2) 0.37 10*3/uL 0.03-0.39 BASO x10^3 (test code = 704-7) 0.05 10*3/uL 0.01-0.07 Lab Interpretation (test code = 78981-9) Abnormal [facility] HospitalURINALYSIS2021-07-08 08:49:55* Test Item Value Reference Range Interpretation Comme nts APPEARANCE (test code = 5256037993) Cloudy Clear A COLOR (test code = 9583822609) Yellow Yellow PH (test code = 5351762674) 4.8-8.0 SP GRAVITY (test code = 7150005664) 1.003-1.030 GLU U QUAL (test code = 1790112983) Normal Normal BLOOD (test code = 2222067108) Negative Negative KETONES (test code = 5035808455) Negative Negative PROTEIN (test code = 2887-8) Negative Negative UROBILIN (test code = 9002252396) Normal Normal BILIRUBIN (test code = 7572284145) 2 mg/dL Negative A NITRITE (test code = 3458594722) Negative Negative LEUK MARC (test code = 1943718894) 75/uL Negative A RBC/HPF (test code = 7237547552) See_Comment H [Automated messa ge] The system which generated this result transmitted reference range: 0 - 3 HPF. The reference range was not used to interpret this result as normal/abnormal. WBC/HPF (test code = 5335802834) See_Comment H [Automated messa ge] The system which generated this result transmitted reference range: 0 - 5 HPF. The reference range was not used to interpret this result as normal/abnormal. BACTERIA (test code = 4336446096) Moderate Negative A MUCOUS (test code = 5082159730) Slight Negative LPF A SQ EPITH (test code = 5338349787) HPF YEAST BUD (test code = 1083928148) See_Comment H [Automated messa ge] The system which generated this result transmitted reference range: <=1 HPF. The reference range was not used to interpret this result as normal/abnormal. Ictotest (test code = 8354376067) Negative Lab Interpretation (test code = 47431-3) Abnormal [facility]. METABOLIC PANEL (10025)2021-01-12 08:49:44* Test Item Value Reference Range Interpretation Comme nts NA (test code = 2758093047) 137 mmol/L 135-145 K (test code = 3683126814) 4.6 mmol/L 3.5-5.0 CL (test code = 7405181860) 108 mmol/L 98-108 CO2 TOTAL (test code = 3672013388) 21 mmol/L 23-31 L AGAP (test code = 7868694295) 2-16 BUN (test code = 4058104541) 19 mg/dL 7-23 GLUCOSE (test code = 2342408083) 107 mg/dL 70-110 CREATININE (test code = 6746901894) 0.63 mg/dL 0.50-1.04 TOTAL BILI (test code = 4747778750) 0.4 mg/dL 0.1-1.1 CALCIUM (test code = 6153657048) 9.2 mg/dL 8.6-10.6 T PROTEIN (test code = 1432212482) 7.4 g/dL 6.3-8.2 ALBUMIN (test code = 8128383118) 4.2 g/dL 3.5-5.0 ALK PHOS (test code = 3892495386) 179 U/L 34-122 H ALTv (test code = 1742-6) 113 U/L 5-35 H AST(SGOT) (test code = 3773566798) 38 U/L 13-40 eGFR (test code = 1362169710) mL/min/1.73m2 DARWIN (test code = DARWIN) Association [...] imaging tests). Lab Interpretation (test code = 10859-5) Abnormal [facility] WITH [id number] 08:11:02* Test Item Value Reference Range Interpretation Comme nts WBC (test code = 6690-2) See_Comment H [Automated [employer]] The system which generated this result transmitted reference range: 4.30 - 11.10 10*3/?L. The reference range was not used to interpret this result as normal/abnormal. RBC (test code = 789-8) See_Comment [Automated [employer]] The system which generated this result transmitted [...] 33.3 g/dL 31.6-35.1 RDW-SD (test code = 11844-1) 41.6 fL 39.0-49.9 RDW-CV (test code = 788-0) 14.0 % 12.0-15.5 PLT (test code = 777-3) See_Comment [Automated [employer]] The system which generated this result transmitted reference range: 166 - 358 10*3/?L. The reference range was not used to interpret this result as normal/abnormal. MPV (test code = 68651-4) 9.5 fL 9.5-12.9 NRBC/100 WBC (test code = 1313828799) See_Comment [Automated [employer]] The system which generated this result transmitted reference range: 0.0 - 10.0 /100 WBCs. The reference range was not used to interpret this result as normal/abnormal. NRBC x10^3 (test code = 1234365814) <0.01 See_Comment [Automated [employer]] The system which generated this result transmitted reference range: 10*3/?L. The reference range was not used to interpret this result as normal/abnormal. GRAN MAT (NEUT) % (test code = 770-8) 68.0 % IMM GRAN % (test code = 7116035963) 0.80 % LYMPH % (test code = 736-9) 23.6 % MONO % (test code = 5905-5) 5.1 % EOS % (test code = 713-8) 2.1 % BASO % (test code = 706-2) 0.4 % GRAN MAT x10^3(ANC) (test code = 2502979204) 8.86 10*3/uL 1.88-7.09 H IMM GRAN x10^3 (test code = 0866568120) 0.11 10*3/uL 0.00-0.06 H LYMPH x10^3 (test code = 731-0) 3.07 10*3/uL 1.32-3.29 MONO x10^3 (test code = 742-7) 0.66 10*3/uL 0.33-0.92 EOS x10^3 (test code = 711-2) 0.27 10*3/uL 0.03-0.39 BASO x10^3 (test code = 704-7) 0.05 10*3/uL 0.01-0.07 Lab Interpretation (test code = 20250-2) Abnormal [facility]PO[facility] [id number] 08:02:00* Test Item Value Reference Range Interpretation Comme nts POCT PREG (test code = 1605) negative On board controls acceptable with C Line (test code = 3574) positive POCT PREG LOT # (test code = 3575) [id number] POCT PREG TEST DATE ( test code = 3576) 07/07/2022 Lab Interpretation (test cod e = 63901-0) Normal [facility] HospitalTROP[facility]IN [id number] 01:55:05* Test Item Value Reference Range Interpretation Comme nts TROPONIN I (test code = 0285233423) 0.000 ng/mL See_Comment [Automated message] The system [...] biotin. ? Lab Interpretation (test code = 79695-3) Normal [facility] HospitalChes 1 Qwfm7752-17-85 23:41:46No radiographic evidence of an acute cardiopulmonary process. RL: 2109AFC: 94978 EXAM: XR CHEST 1 VW ORDERING PROVIDER: BAL HASSNA HISTORY: CP COMPARISON: 12/04/2020 TECHNIQUE: Portable AP [...] evidence of an acute cardiopulmonary process.RL: 2109AFC: [facility] [id number] 23:07:21* Test Item Value Reference Range Interpretation Comme nts TROPONIN I (test code = 8521022774) 0.000 ng/mL See_Comment [Automated message] The system [...] biotin. ? Lab Interpretation (test code = 34023-3) Normal [facility] HospitalN-TERMINAL [id number]-IGI3814-30-05 23:04:20* Test Item Value Reference Range Interpretation Comme nts NT-proBNP (test code = 1505015084) 14 pg/mL See_Comment [Automated message] The system which generated this result transmitted reference range: <=125. The reference range was not used to interpret this result as normal/abnormal. DARWIN (test code = DARWIN) Biotin has been reported to cause a negative bias, interpret results relative to patient's use of biotin. Lab Interpretation (test code = 33994-2) Normal [facility] HospitalHepatic Function Panel (ALB, T.PRO, BILI T, BU/BC, ALT, AST, ALK PHOS)2020-12-10 22:58:16* Test Item Value Reference Range Interpretation Comme nts TOTAL BILI (test code = 6134539551) 0.5 mg/dL 0.1-1.1 BILI UNCON (test code = 3025303052) 0.3 mg/dL 0.1-1.1 BILI CONJ (test code = 6768469856) 0.0 mg/dL 0.0-0.3 T PROTEIN (test code = 2649050577) 8.1 g/dL 6.3-8.2 ALBUMIN (test code = 5022290312) 4.7 g/dL 3.5-5.0 ALK PHOS (test code = 5766161326) 104 U/L 34-122 ALTv (test code = 1742-6) 18 U/L 5-35 AST(SGOT) (test code = 8104529916) 23 U/L 13-40 Lab Interpretation (test cod e = 95740-8) Normal [facility] Metabolic Panel (NA, K, CL, CO2, GLUCOSE, BUN, CREATININE, CA)2020-12-10 22:57:56* Test Item Value Reference Range Interpretation Comme nts NA (test code = 0617024519) 135 mmol/L 135-145 K (test code = 3131528283) 3.7 mmol/L 3.5-5.0 CL (test code = 7043307398) 105 mmol/L 98-108 CO2 TOTAL (test code = 6450346042) 18 mmol/L 23-31 L AGAP (test code = 1204683952) 2-16 BUN (test code = 6344343608) 14 mg/dL 7-23 GLUCOSE (test code = 7011674436) 108 mg/dL 70-110 CREATININE (test code = 2282655827) 0.56 mg/dL 0.50-1.04 CALCIUM (test code = 0219347990) 9.8 mg/dL 8.6-10.6 eGFR (test code = 7166823514) mL/min/1.73m2 DARWIN (test code = DARWIN) Association [...] imaging tests). Lab Interpretation (test code = 57795-6) [id number]:57:56* Test Item Value Reference Range Interpretation Comme nts LIPASE (test code = [id number]) 122 U/L 0-220 Lab Interpretation (test cod e = 18545-2) [facility]56[facility]52 22:52:34* Test Item Value Reference Range Interpretation Comments D-DIMER (test code = 6057578736) See_Comment [Automated message] The system which generated [...] a diagnosis. Lab Interpretation (test code = 00410-1) Normal [facility]inalysis20[facility] 22:52:29* Test Item Value Reference Range Interpretation Comme nts APPEARANCE (test code = 8410109528) Hazy Clear A COLOR (test code = 4119611821) Yellow Yellow PH (test code = 2943494628) 4.8-8.0 SP GRAVITY (test code = 2978801805) 1.003-1.030 GLU U QUAL (test code = 3134060839) Normal Normal BLOOD (test code = 7421444572) Negative Negative KETONES (test code = 9376007518) Negative Negative PROTEIN (test code = 2887-8) Negative Negative UROBILIN (test code = 4199503753) Normal Normal BILIRUBIN (test code = 0830721583) 2 mg/dL Negative A NITRITE (test code = 4698009631) Negative Negative LEUK MARC (test code = 5336021996) 25/uL Negative A RBC/HPF (test code = 8925065179) See_Comment [Automated [employer]] The system which generated this result transmitted reference range: 0 - 3 HPF. The reference range was not used to interpret this result as normal/abnormal. WBC/HPF (test code = 7821982585) See_Comment [Automated [employer]] The system which generated this result transmitted reference range: 0 - 5 HPF. The reference range was not used to interpret this result as normal/abnormal. BACTERIA (test code = 7868725350) Few Negative A MUCOUS (test code = 4108822804) Slight Negative LPF A SQ EPITH (test code = 2572380576) HPF Lab Interpretation (test code = 15836-5) Abnormal [facility] with Jjmtxmppehfo1382-79-72 22:45:56* Test Item Value Reference Range Interpretation [...] 33.5 g/dL 31.6-35.1 RDW-SD (test code = 95724-5) 40.5 fL 39.0-49.9 RDW-CV (test code = 788-0) 13.3 % 12.0-15.5 PLT (test code = 777-3) See_Comment H [Automated message] The system which generated this result transmitted reference range: 166 - 358 10*3/?L. The reference range was not used to interpret this result as normal/abnormal. MPV (test code = 90856-6) 9.2 fL 9.5-12.9 L NRBC/100 WBC (test code = 1009829621) See_Comment [Automated message] The system which generated this result transmitted reference range: 0.0 - 10.0 /100 WBCs. The reference range was not used to interpret this result as normal/abnormal. NRBC x10^3 (test code = 5595391153) <0.01 See_Comment [Automated message] The system which generated this result transmitted reference range: 10*3/?L. The reference range was not used to interpret this result as normal/abnormal. GRAN MAT (NEUT) % (test code = 770-8) 73.4 % IMM GRAN % (test code = 4455593674) 0.50 % LYMPH % (test code = 736-9) 17.5 % MONO % (test code = 5905-5) 6.5 % EOS % (test code = 713-8) 1.6 % BASO % (test code = 706-2) 0.5 % GRAN MAT x10^3(ANC) (test code = 3147874384) 10.21 10*3/uL 1.88-7.09 H IMM GRAN x10^3 (test code = 6563263144) 0.07 10*3/uL 0.00-0.06 H LYMPH x10^3 (test code = 731-0) 2.44 10*3/uL 1.32-3.29 MONO x10^3 (test code = 742-7) 0.90 10*3/uL 0.33-0.92 EOS x10^3 (test code = 711-2) 0.22 10*3/uL 0.03-0.39 BASO x10^3 (test code = 704-7) 0.07 10*3/uL 0.01-0.07 Lab Interpretation (test code = 93268-0) [facility]normal [facility]PO[facility] Zfuz5478-84-13 22:32:00* Test Item Value Reference Range Interpretation Comme nts POCT PREG (test code = 1605) negative On board controls acceptable with C Line (test code = 3574) present POCT PREG LOT # (test code = 3575) [id number] POCT PREG TEST DATE ( test code = 3576) 06/06/2022 Lab Interpretation (test cod e = 13788-7) Normal [facility] 21:34:43* Test Item Value Reference Range Interpretation Comme nts APPEARANCE (test code = 6512019492) Clear Clear COLOR (test code = 6621074428) Yellow Yellow PH (test code = 7123016436) 4.8-8.0 SP GRAVITY (test code = 3351156436) 1.003-1.030 GLU U QUAL (test code = 6827984581) Normal Normal BLOOD (test code = 8555685475) Negative Negative KETONES (test code = 8730963865) Negative Negative PROTEIN (test code = 2887-8) Negative Negative UROBILIN (test code = 5186684126) Normal Normal BILIRUBIN (test code = 6019687399) Negative Negative NITRITE (test code = 8013592163) Negative Negative LEUK MARC (test code = 0184547604) Negative Negative RBC/HPF (test code = 0426870079) See_Comment [Automated [employer]] The system which generated this result transmitted reference range: 0 - 3 HPF. The reference range was not used to interpret this result as normal/abnormal. WBC/HPF (test code = 8526106573) <1 See_Comment [Automated [employer]] The system which generated this result transmitted reference range: 0 - 5 HPF. The reference range was not used to interpret this result as normal/abnormal. BACTERIA (test code = 2992179990) Negative Negative MUCOUS (test code = 9814825582) Slight Negative LPF A SQ EPITH (test code = 9674935145) HPF Lab Interpretation (test code = 10734-6) [facility]normal [facility]PO[facility] Ofmc5911-80-05 21:18:00* Test Item Value Reference Range Interpretation Comme nts POCT PREG (test code = 1605) negative On board controls acceptable with C Line (test code = 3574) present POCT PREG LOT # (test code = 3575) [id number] POCT PREG TEST DATE ( test code = 3576) 06/06/2022 Lab Interpretation (test cod e = 63453-0) Normal [facility]XR ANKLE 3+ VW JVRE8453-77-66 21:11:00No acute bony abnormality. Preliminary Report Dictated [...] reviewed this study and agree with the abovereport.[facility] HospitalTroponin [id number] 20:59:44* Test Item Value Reference Range Interpretation Comme nts TROPONIN I (test code = 9960011485) 0.000 ng/mL See_Comment [Automated message] The system [...] biotin. ? Lab Interpretation (test code = 01482-3) Normal [facility] HospitalLipase Ugoqj3940-96-09 20:48:20* Test Item Value Reference Range Interpretation Comme nts LIPASE (test code = 5448599334) 96 U/L 0-220 Lab Interpretation (test cod e = 44884-7) Normal [facility]Basic [facility]abolic [facility] (NA, K, CL, CO2, GLUCOSE, BUN, CREATININE, CA)2020-12-04 20:48:20* Test Item Value Reference Range Interpretation Comme nts NA (test code = 2917332707) 138 mmol/L 135-145 K (test code = 2129984151) 3.8 mmol/L 3.5-5.0 CL (test code = 8453753624) 108 mmol/L 98-108 CO2 TOTAL (test code = 4261495881) 21 mmol/L 23-31 L AGAP (test code = 3957375649) 2-16 BUN (test code = 4963473144) 13 mg/dL 7-23 GLUCOSE (test code = 8883743660) 107 mg/dL 70-110 CREATININE (test code = 0331834198) 0.66 mg/dL 0.50-1.04 CALCIUM (test code = 5312720029) 9.3 mg/dL 8.6-10.6 eGFR (test code = 9447422583) mL/min/1.73m2 DARWIN (test code = DARWIN) Association [...] imaging tests). Lab Interpretation (test code = 40132-1) Abnormal [facility] HospitalHepatic Function Panel (ALB, T.PRO, BILI T, BU/BC, ALT, AST, ALK PHOS)2020-12-04 20:48:20* Test Item Value Reference Range Interpretation Comme nts TOTAL BILI (test code = 0581071208) 0.3 mg/dL 0.1-1.1 BILI UNCON (test code = 5403817685) 0.1 mg/dL 0.1-1.1 BILI CONJ (test code = 3255272316) 0.0 mg/dL 0.0-0.3 T PROTEIN (test code = 1327977406) 7.0 g/dL 6.3-8.2 ALBUMIN (test code = 5792705508) 4.0 g/dL 3.5-5.0 ALK PHOS (test code = 3369432337) 114 U/L 34-122 ALTv (test code = 1742-6) 30 U/L 5-35 AST(SGOT) (test code = 6637325216) 23 U/L 13-40 Lab Interpretation (test cod e = 92717-2) Normal [facility] with Zzcbnvcsljln5945-61-40 20:35:01* Test Item Value Reference Range Interpretation Comme nts WBC (test code = 6690-2) See_Comment [Automated [employer]] The system which generated this result transmitted reference range: 4.30 - 11.10 10*3/?L. The reference range was not used to interpret this result as normal/abnormal. RBC (test code = 789-8) See_Comment [Automated [employer]] The system which generated this result [...] 34.0 g/dL 31.6-35.1 RDW-SD (test code = 03475-9) 39.8 fL 39.0-49.9 RDW-CV (test code = 788-0) 12.9 % 12.0-15.5 PLT (test code = 777-3) See_Comment [Automated [employer]] The system which generated this result transmitted reference range: 166 - 358 10*3/?L. The reference range was not used to interpret this result as normal/abnormal. MPV (test code = 21887-8) 9.3 fL 9.5-12.9 L NRBC/100 WBC (test code = 3937829525) See_Comment [Automated me ssage] The system which generated this result transmitted reference range: 0.0 - 10.0 /100 WBCs. The reference range was not used to interpret this result as normal/abnormal. NRBC x10^3 (test code = 6035760589) <0.01 See_Comment [Automated messa ge] The system which generated this result transmitted reference range: 10*3/?L. The reference range was not used to interpret this result as normal/abnormal. GRAN MAT (NEUT) % (test code = 770-8) 71.5 % IMM GRAN % (test code = 3468010103) 0.30 % LYMPH % (test code = 736-9) 19.8 % MONO % (test code = 5905-5) 6.2 % EOS % (test code = 713-8) 1.8 % BASO % (test code = 706-2) 0.4 % GRAN MAT x10^3(ANC) (test code = 8292664270) 6.79 10*3/uL 1.88-7.09 IMM GRAN x10^3 (test code = 7373505849) 0.03 10*3/uL 0.00-0.06 LYMPH x10^3 (test code = 731-0) 1.88 10*3/uL 1.32-3.29 MONO x10^3 (test code = 742-7) 0.59 10*3/uL 0.33-0.92 EOS x10^3 (test code = 711-2) 0.17 10*3/uL 0.03-0.39 BASO x10^3 (test code = 704-7) 0.04 10*3/uL 0.01-0.07 Lab Interpretation (test code = 62148-9) Abnormal [facility]DR[facility] (URINE)2020-11-04 02:54:38* Test Item Value Reference Range Interpretation Comme nts AMPHET (test code = 6814598442) Negative Negative Cocaine Metabolite (test code = 6984427914) Negative Negative OPIATES (test code = 0617246476) Presumptive Positive Negative A THC (test code = 9114567885) Negative Negative DARWIN (test code = DARWIN) Urine Drug Cutoff Ranges Amphetamine: ? 1,000 ng/mLCocaine: ? 150 ng/mLOpiates: ? 300 ng/mLCannabinoids: ?50 ng/mL The results are to be used only for medical (i.e., treatment) purposes. Unconfirmed screening results must not be used for non-medical purposes (e.g., employment testing, legal testing). Lab Interpretation (test code = 53680-0) Abnormal [facility] HospitalTROPONIN [id number] 02:51:11* Test Item Value Reference Range Interpretation Comme nts TROPONIN I (test code = 9774558882) 0.001 ng/mL See_Comment [Automated message] The system [...] biotin. ? Lab Interpretation (test code = 19344-7) Normal [facility] HospitalaPTT2021-04-30 02:41:10* Test Item Value Reference Range Interpretation Comme nts APTT Patient (test code = 3173-2) See_Comment [Automated message] The system which generated this result transmitted reference range: 23 - 38 Seconds. The reference range was not used to interpret this result as normal/abnormal. DARWIN (test code = DARWIN) The [facility] patient population mean normal value for aPTT is 30 seconds. Lab Interpretation (test code = 70467-8) Normal [facility] HospitalURINALYSIS2021-04-30 02:40:40* Test Item Value Reference Range Interpretation Comme nts APPEARANCE (test code = 8207060841) Clear Clear COLOR (test code = 3156432804) Yellow Yellow PH (test code = 3091655359) 4.8-8.0 SP GRAVITY (test code = 6862365830) 1.003-1.030 GLU U QUAL (test code = 2042969045) Normal Normal BLOOD (test code = 9581104401) Negative Negative KETONES (test code = 4072955739) Negative Negative PROTEIN (test code = 2887-8) Negative Negative UROBILIN (test code = 3117811408) Normal Normal BILIRUBIN (test code = 7420312188) Negative Negative NITRITE (test code = 8744567172) Negative Negative LEUK MARC (test code = 6154351920) Negative Negative RBC/HPF (test code = 5243116069) <1 See_Comment [Automated messa ge] The system which generated this result transmitted reference range: 0 - 3 HPF. The reference range was not used to interpret this result as normal/abnormal. WBC/HPF (test code = 8644664620) <1 See_Comment [Automated messa ge] The system which generated this result transmitted reference range: 0 - 5 HPF. The reference range was not used to interpret this result as normal/abnormal. BACTERIA (test code = 0221005465) Negative Negative MUCOUS (test code = 4815748651) Slight Negative LPF A SQ EPITH (test code = 7325756263) HPF Lab Interpretation (test code = 09870-3) Abnormal [facility] HospitalCOM. METABOLIC PANEL (45775)2020-11-04 02:40:09* Test Item Value Reference Range Interpretation Comme nts NA (test code = 9855163495) 141 mmol/L 135-145 K (test code = 6297266575) 4.1 mmol/L 3.5-5.0 CL (test code = 5512728415) 110 mmol/L 98-108 H CO2 TOTAL (test code = 1028196103) 22 mmol/L 23-31 L AGAP (test code = 4673354342) 2-16 BUN (test code = 0355245676) 15 mg/dL 7-23 GLUCOSE (test code = 4531244790) 115 mg/dL 70-110 H CREATININE (test code = 0552007585) 0.69 mg/dL 0.50-1.04 TOTAL BILI (test code = 0511567154) 0.2 mg/dL 0.1-1.1 CALCIUM (test code = 6229268560) 9.2 mg/dL 8.6-10.6 T PROTEIN (test code = 1214670324) 6.8 g/dL 6.3-8.2 ALBUMIN (test code = 4983353944) 4.1 g/dL 3.5-5.0 ALK PHOS (test code = 1826225369) 69 U/L 34-122 ALTv (test code = 1742-6) 20 U/L 5-35 AST(SGOT) (test code = 3352002039) 23 U/L 13-40 eGFR (test code = 4746828728) mL/min/1.73m2 DARWIN (test code = DARWIN) Association [...] imaging tests). Lab Interpretation (test code = 80177-8) Abnormal [facility] HospitalLIPASE, ICHTK2121-07-10 02:39:49* Test Item Value Reference Range Interpretation Comme [facility] LIPASE (test code = 1315738470) 117 U/L 0-220 Lab Interpretation (test cod e = 54986-1) Normal [facility] HospitalPROTHROMBIN TIME / [id number] 02:39:08* Test Item Value Reference Range Interpretation Comme nts PROTIME PATIENT (test code = 5964-2) See_Comment [Automated [employer]] The system which generated this result transmitted reference range: 12.0 - 14.7 Seconds. The reference range was not used to interpret this result as normal/abnormal. INR (test code = 6301-6) Normal INR <1.1; Warfarin Therapeutic range 2.0 to 3.0 or 2.5 to 3.5, depending upon the indications. Lab Interpretation (test code = 96884-3) Normal [facility] HospitalCBC WITH RLPI3637-86-68 02:30:11* Test Item Value Reference Range Interpretation Comme nts WBC (test code = 6690-2) See_Comment H [Automated [employer]] The system which generated this result transmitted reference range: 4.30 - 11.10 10*3/?L. The reference range was not used to interpret this result as normal/abnormal. RBC (test code = 789-8) See_Comment [Automated [employer]] The system which generated this result [...] 32.8 g/dL 31.6-35.1 RDW-SD (test code = 83048-0) 44.1 fL 39.0-49.9 RDW-CV (test code = 788-0) 13.8 % 12.0-15.5 PLT (test code = 777-3) See_Comment [Automated [employer]] The system which generated this result transmitted reference range: 166 - 358 10*3/?L. The reference range was not used to interpret this result as normal/abnormal. MPV (test code = 28560-3) 9.6 fL 9.5-12.9 NRBC/100 WBC (test code = 7683428420) See_Comment [Automated [employer] ssage] The system which generated this result transmitted reference range: 0.0 - 10.0 /100 WBCs. The reference range was not used to interpret this result as normal/abnormal. NRBC x10^3 (test code = 3507084608) <0.01 See_Comment [Automated [employer]] The system which generated this result transmitted reference range: 10*3/?L. The reference range was not used to interpret this result as normal/abnormal. GRAN MAT (NEUT) % (test code = 770-8) 65.9 % IMM GRAN % (test code = 1204423478) 0.70 % LYMPH % (test code = 736-9) 25.9 % MONO % (test code = 5905-5) 5.1 % EOS % (test code = 713-8) 2.0 % BASO % (test code = 706-2) 0.4 % GRAN MAT x10^3(ANC) (test code = 8435998914) 8.82 10*3/uL 1.88-7.09 H IMM GRAN x10^3 (test code = 7854115314) 0.09 10*3/uL 0.00-0.06 H LYMPH x10^3 (test code = 731-0) 3.46 10*3/uL 1.32-3.29 H MONO x10^3 (test code = 742-7) 0.68 10*3/uL 0.33-0.92 EOS x10^3 (test code = 711-2) 0.27 10*3/uL 0.03-0.39 BASO x10^3 (test code = 704-7) 0.05 10*3/uL 0.01-0.07 Lab Interpretation (test code = 78775-4) Abnormal [facility] HospitalCOVID-19 (ID NOW RAPID TESTING)2020-09-17 16:56:05* Test Item Value Reference Range Interpretation Comme nts SARS-CoV-2 Rapid ID NOW (test code = 58363-2) Not Detected Not Detected DARWIN (test code = DARWIN) ID NOW COVID-19 As say is an isothermal nucleic acid amplification test intended for the qualitative detection of nucleic acid from SARS-CoV-2 viral RNA in nasopharyngeal (LAB ASSISTANT) specimens. It is used under Emergency Use [...] clinically indicated. Lab Interpretation (test code = 63172-5) Normal [facility] STREP SCREEN FOR GROUP [id number] 16:54:09* Test Item Value Reference Range Interpretation Comme nts Streptococcus pyogenes (grou p A) antigen (test code = 48516-2) Negative Negative Lab Interpretation (test cod e = 69788-6) Normal [facility] HospitalXR [facility] 3+ VW [id number] 07:29:48 Impression: No acute fracture or dislocation. RL: 2824AFC: 81272 End of Report Exam: Left Hand, 09/07/2020 [...] swelling.IMPRESSIONImpression: No acute fracture or dislocation.RL: 2824AFC: 51732Pcz of Report [facility] HospitalXR FOREARM 2 VW VMEX8864-68-78 07:28:55No acute abnormality of the left forearm. RL: 6200AFC: 80871 Patient name: CHARITY MONROYOB: 1980 40 years [...] acute abnormality of the left forearm.RL: 6200AFC: 29492 [facility]:06[facility]* Test Item Value Reference Range Interpretation Comme nts APPEARANCE (test code = 1605956516) Hazy Clear A COLOR (test code = 1999382052) Yellow Yellow PH (test code = 2395832936) 4.8-8.0 SP GRAVITY (test code = 0227109314) 1.003-1.030 GLU U QUAL (test code = 7231058684) Normal Normal BLOOD (test code = 0801938370) Negative Negative KETONES (test code = 4671282861) Negative Negative PROTEIN (test code = 2887-8) Negative Negative UROBILIN (test code = 6203259299) Normal Normal BILIRUBIN (test code = 9983376344) Negative Negative NITRITE (test code = 9234153873) Negative Negative LEUK MARC (test code = 0025446070) Negative Negative RBC/HPF (test code = 9747273529) See_Comment [Automated messa ge] The system which generated this result transmitted reference range: 0 - 3 HPF. The reference range was not used to interpret this result as normal/abnormal. WBC/HPF (test code = 2746003856) <1 See_Comment [Automated messa ge] The system which generated this result transmitted reference range: 0 - 5 HPF. The reference range was not used to interpret this result as normal/abnormal. BACTERIA (test code = 0009548728) Moderate Negative A SQ EPITH (test code = 9379083085) HPF Lab Interpretation (test code = 26822-8) Abnormal [facility] with Lcopacuhlugh5273-23-34 08:50:00* Test Item Value Reference Range Interpretation [...] 34.0 g/dL 31.6-35.1 RDW-SD (test code = 11589-9) 42.6 fL 39-49.9 RDW-CV (test code = 788-0) 13.6 % 12-15.5 PLT (test code = 777-3) See_Comment H [Automated messa ge] The system which generated this result transmitted reference range: 166 - 358 10*3/?L. The reference range was not used to interpret this result as normal/abnormal. MPV (test code = 07160-9) 9.7 fL 9.5-12.9 NRBC/100 WBC (test code = 8990654300) See_Comment [Automated [employer]] The system which generated this result transmitted reference range: 0.0 - 10.0 /100 WBCs. The reference range was not used to interpret this result as normal/abnormal. NRBC x10^3 (test code = 0192580539) <0.01 See_Comment [Automated messa ge] The system which generated this result transmitted reference range: 10*3/?L. The reference range was not used to interpret this result as normal/abnormal. GRAN MAT (NEUT) % (test code = 770-8) 49.7 % IMM GRAN % (test code = 8789907440) 0.50 % LYMPH % (test code = 736-9) 41.0 % MONO % (test code = 5905-5) 6.5 % EOS % (test code = 713-8) 1.9 % BASO % (test code = 706-2) 0.4 % GRAN MAT x10^3(ANC) (test code = 4106648974) 6.39 10*3/uL 1.88-7.09 IMM GRAN x10^3 (test code = 8088988315) 0.07 10*3/uL 0-0.06 H LYMPH x10^3 (test code = 731-0) 5.27 10*3/uL 1.32-3.29 H MONO x10^3 (test code = 742-7) 0.84 10*3/uL 0.33-0.92 EOS x10^3 (test code = 711-2) 0.24 10*3/uL 0.03-0.39 BASO x10^3 (test code = 704-7) 0.05 10*3/uL 0.01-0.07 Lab Interpretation (test code = 66672-4) [facility]normal [facility] HospitalPO[facility] Wbvq0016-34-27 08:45:00* Test Item Value Reference Range Interpretation Comme nts POCT PREG (test code = 1605) neg On board controls acceptable with C Line (test code = 3574) yes POCT PREG LOT # (test code = 3575) [id number] POCT PREG TEST DATE ( test code = 3576) 04/06/2022 Lab Interpretation (test cod e = 64632-8) Normal [facility] HospitalComplete Metabolic Avglz8369-86-17 08:30:00* Test Item Value Reference Range Interpretation Comme nts NA (test code = 6163529496) 137 mmol/L 135-145 K (test code = 7039957530) 3.3 mmol/L 3.5-5 L CL (test code = 6178020580) 102 mmol/L 98-108 CO2 TOTAL (test code = 3757111002) 24 mmol/L 23-31 AGAP (test code = 7241444890) 2-16 BUN (test code = 3460166348) 9 mg/dL 7-23 GLUCOSE (test code = 8786716574) 116 mg/dL 70-110 H CREATININE (test code = 7388159277) 0.48 mg/dL 0.5-1.04 L TOTAL BILI (test code = 7073538499) 0.3 mg/dL 0.1-1.1 CALCIUM (test code = 1246783244) 9.4 mg/dL 8.6-10.6 T PROTEIN (test code = 9903551167) 7.0 g/dL 6.3-8.2 ALBUMIN (test code = 9832422514) 4.3 g/dL 3.5-5 ALK PHOS (test code = 1900465441) 127 U/L 34-122 H ALTv (test code = 1742-6) 87 U/L 5-35 H AST(SGOT) (test code = 3300866104) 34 U/L 13-40 eGFR Calculation (Non-) (test code = 4543828621) mL/min/1.73m2 eGFR Calculation () (test code = 4297286981) mL/min/1.73m2 DARWIN (test code = DARWIN) Association [...] imaging tests). Lab Interpretation (test code = 68916-4) Abnormal [facility] HospitalLipase, Rxyga9648-53-31 08:30:00* Test Item Value Reference Range Interpretation Comme nts LIPASE (test code = 4384092556) 297 U/L 0-220 H Lab Interpretation (test cod e = 66248-2) Abnormal [facility] HospitalURINALYSIS2021-02-07 19:25:00* Test Item Value Reference Range Interpretation Comme nts APPEARANCE (test code = 3155598964) Clear Clear COLOR (test code = 8922174866) Straw Yellow A PH (test code = 6294545260) 4.8-8.0 SP GRAVITY (test code = 5017586550) 1.003-1.030 GLU U QUAL (test code = 5342016630) Normal Normal BLOOD (test code = 4727637486) 1+ Negative A KETONES (test code = 7052525581) Negative Negative PROTEIN (test code = 2887-8) Negative Negative UROBILIN (test code = 0830536568) Normal Normal BILIRUBIN (test code = 9468437799) Negative Negative NITRITE (test code = 5225967613) Negative Negative LEUK MARC (test code = 6148456480) Negative Negative RBC/HPF (test code = 0516944242) See_Comment [Automated [employer]] The system which generated this result transmitted reference range: 0 - 3 HPF. The reference range was not used to interpret this result as normal/abnormal. WBC/HPF (test code = 4409546475) <1 See_Comment [Automated [employer]] The system which generated this result transmitted reference range: 0 - 5 HPF. The reference range was not used to interpret this result as normal/abnormal. BACTERIA (test code = 9779268841) Few Negative A MUCOUS (test code = 5640667880) Slight Negative LPF A SQ EPITH (test code = 7694267803) HPF Lab Interpretation (test code = 80375-1) Abnormal [facility] [id number] 19:09:00* Test Item Value Reference Range Interpretation Comme nts TROPONIN I (test code = 7610536217) <0.012 See_Comment [Automated message] The system which [...] biotin. ? Lab Interpretation (test code = 85861-3) Normal [facility] - DRUG SCREEN CHDMFE8333-07-51 19:09:00* Test Item Value Reference Range Interpretation Comme nts BENZO U (test code = 4735880235) Presumptive Positive Negative A ROSA U (test code = 1711877598) Negative Negative AMPHET (test code = 5774753907) Negative Negative THC (test code = 7101931461) Negative Negative METHADONE (test code = 8445450988) Negative Negative Meth U (test code = 7526057333) Negative Negative OPIATES (test code = 1796648572) Negative Negative Cocaine Metabolite (test code = 8110764537) Negative Negative PROPOXY (test code = 8193269922) Negative Negative Tric U (test code = 4562657899) Negative Negative PCP (test code = 4096037834) Negative Negative OXYCOD (test code = 6463164766) Negative Negative DARWIN (test code = DARWIN) [...] legal testing). Lab Interpretation (test code = 44081-6) [facility]12130[facility]2020-08-14 19:01:00* Test Item Value Reference Range Interpretation Comme nts NA (test code = 9176898467) 138 mmol/L 135-145 K (test code = 9353916250) 4.5 mmol/L 3.5-5 CL (test code = 5516452060) 106 mmol/L 98-108 CO2 TOTAL (test code = 9352749491) 21 mmol/L 23-31 L AGAP (test code = 0366869342) 2-16 BUN (test code = 5629864234) 13 mg/dL 7-23 GLUCOSE (test code = 6368813150) 97 mg/dL 70-110 CREATININE (test code = 1541335944) 0.48 mg/dL 0.5-1.04 L TOTAL BILI (test code = 9004673429) 0.4 mg/dL 0.1-1.1 CALCIUM (test code = 1646739710) 9.1 mg/dL 8.6-10.6 T PROTEIN (test code = 0412581082) 7.5 g/dL 6.3-8.2 ALBUMIN (test code = 1049914968) 4.3 g/dL 3.5-5 ALK PHOS (test code = 5108573094) 62 U/L 34-122 ALTv (test code = 1742-6) 19 U/L 5-35 AST(SGOT) (test code = 8802508764) 26 U/L 13-40 eGFR Calculation (Non-) (test code = 2427653308) mL/min/1.73m2 eGFR Calculation () (test code = 6991461928) mL/min/1.73m2 DARWNI (test code = DARWIN) Association of Glomerular [...] imaging tests). Lab Interpretation (test code = 57414-6) [facility]01:00* Test Item Value Reference Range Interpretation Comme nts LIPASE (test code = 9639796083) 76 U/L 0-220 Lab Interpretation (test cod e = 86200-5) Normal [facility] WITH [id number] 18:47:00* Test Item Value Reference Range Interpretation Comme nts WBC (test code = 6690-2) See_Comment H [Automated [employer]] The system which generated this result transmitted reference range: 4.30 - 11.10 10*3/?L. The reference range was not used to interpret this result as normal/abnormal. RBC (test code = 789-8) See_Comment [Automated [employer]] The system which generated this result [...] 34.3 g/dL 31.6-35.1 RDW-SD (test code = 75764-7) 42.0 fL 39-49.9 RDW-CV (test code = 788-0) 13.4 % 12-15.5 PLT (test code = 777-3) See_Comment [Automated [employer]] The system which generated this result transmitted reference range: 166 - 358 10*3/?L. The reference range was not used to interpret this result as normal/abnormal. MPV (test code = 61209-8) 9.9 fL 9.5-12.9 NRBC/100 WBC (test code = 9643151287) See_Comment [Automated [employer]] The system which generated this result transmitted reference range: 0.0 - 10.0 /100 WBCs. The reference range was not used to interpret this result as normal/abnormal. NRBC x10^3 (test code = 2103542548) <0.01 See_Comment [Automated [employer]] The system which generated this result transmitted reference range: 10*3/?L. The reference range was not used to interpret this result as normal/abnormal. GRAN MAT (NEUT) % (test code = 770-8) 60.1 % IMM GRAN % (test code = 7107476585) 0.40 % LYMPH % (test code = 736-9) 31.3 % MONO % (test code = 5905-5) 6.0 % EOS % (test code = 713-8) 1.9 % BASO % (test code = 706-2) 0.3 % GRAN MAT x10^3(ANC) (test code = 0653532593) 6.96 10*3/uL 1.88-7.09 IMM GRAN x10^3 (test code = 5394584801) 0.05 10*3/uL 0-0.06 LYMPH x10^3 (test code = 731-0) 3.62 10*3/uL 1.32-3.29 H MONO x10^3 (test code = 742-7) 0.69 10*3/uL 0.33-0.92 EOS x10^3 (test code = 711-2) 0.22 10*3/uL 0.03-0.39 BASO x10^3 (test code = 704-7) 0.04 10*3/uL 0.01-0.07 Lab Interpretation (test code = 47817-5) [facility] [id number] 18:17:08No acute cardiopulmonary abnormality. Preliminary Report Dictated [...] reviewed this study and agree with theabove report.[facility] HospitalLactic Acid Whole Qchww9910-22-88 18:11:00* Test Item Value Reference Range Interpretation Comme nts LACTIC ACID (test code = 7455389730) 1.95 mmol/L 0.5-2.2 Lab Interpretation (test cod e = 73970-3) Normal [facility] PEL[facility] WO [id number] 05:45:24No acute abdominopelvic abnormality. No urolithiasis. 2.5 cm left adrenal adenoma. 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 Preliminary Report Dictated by Resident: Murali F Tenreiro I, Jona ?Bezold, MD., have reviewed this study and agree [...] reviewed this study and agree with the abovereport.[facility] HospitalPOCO [id number] 03:10:00* Test Item Value Reference Range Interpretation Comme [facility] POCT PREG (test code = 1605) Negative On board controls acceptable with C Line (test code = 3574) Present POCT PREG LOT # (test code = 3575) [id number] POCT PREG TEST DATE ( test code = 3576) 03/07/2022 Lab Interpretation (test cod e = 68083-9) Normal [facility] with Zwedwsvapegf4167-26-41 03:05:00* Test Item Value Reference Range Interpretation Comme [facility] WBC (test code = 6690-2) See_Comment H [...] 34.7 g/dL 31.6-35.1 RDW-SD (test code = 90497-0) 42.0 fL 39-49.9 RDW-CV (test code = 788-0) 13.5 % 12-15.5 PLT (test code = 777-3) See_Comment [Automated message] The system which generated this result transmitted reference range: 166 - 358 10*3/?L. The reference range was not used to interpret this result as normal/abnormal. MPV (test code = 64039-0) 9.8 fL 9.5-12.9 NRBC/100 WBC (test code = 0676945943) See_Comment [Automated message] The system which generated this result transmitted reference range: 0.0 - 10.0 /100 WBCs. The reference range was not used to interpret this result as normal/abnormal. NRBC x10^3 (test code = 5356751177) <0.01 See_Comment [Automated message] The system which generated this result transmitted reference range: 10*3/?L. The reference range was not used to interpret this result as normal/abnormal. GRAN MAT (NEUT) % (test code = 770-8) 66.2 % IMM GRAN % (test code = 3899665535) 0.60 % LYMPH % (test code = 736-9) 25.4 % MONO % (test code = 5905-5) 5.6 % EOS % (test code = 713-8) 1.9 % BASO % (test code = 706-2) 0.3 % GRAN MAT x10^3(ANC) (test code = 5311245851) 10.64 10*3/uL 1.88-7.09 H IMM GRAN x10^3 (test code = 2934775588) 0.09 10*3/uL 0-0.06 H LYMPH x10^3 (test code = 731-0) 4.09 10*3/uL 1.32-3.29 H MONO x10^3 (test code = 742-7) 0.90 10*3/uL 0.33-0.92 EOS x10^3 (test code = 711-2) 0.31 10*3/uL 0.03-0.39 BASO x10^3 (test code = 704-7) 0.05 10*3/uL 0.01-0.07 Lab Interpretation (test code = 59607-9) [facility]normal [facility] HospitalUrinalysis2021-02-04 02:56:00* Test Item Value Reference Range Interpretation Comme nts APPEARANCE (test code = 1579147483) Hazy Clear A COLOR (test code = 8462701395) Yellow Yellow PH (test code = 8049693419) 4.8-8.0 SP GRAVITY (test code = 6387918852) 1.003-1.030 GLU U QUAL (test code = 9662458174) Normal Normal BLOOD (test code = 3332106029) Negative Negative KETONES (test code = 8877949343) Negative Negative PROTEIN (test code = 2887-8) Negative Negative UROBILIN (test code = 0666294425) Normal Normal BILIRUBIN (test code = 8433494812) Negative Negative NITRITE (test code = 5361182169) Negative Negative LEUK MARC (test code = 0299651989) Negative Negative RBC/HPF (test code = 0262846249) See_Comment [Automated [employer]] The system which generated this result transmitted reference range: 0 - 3 HPF. The reference range was not used to interpret this result as normal/abnormal. WBC/HPF (test code = 6089738556) See_Comment [Automated [employer]] The system which generated this result transmitted reference range: 0 - 5 HPF. The reference range was not used to interpret this result as normal/abnormal. BACTERIA (test code = 7214574014) Few Negative A MUCOUS (test code = 8457208480) Slight Negative LPF A SQ EPITH (test code = 6099251272) HPF YEAST BUD (test code = 6134049153) See_Comment H [Automated messa ge] The system which generated this result transmitted reference range: <=1 HPF. The reference range was not used to interpret this result as normal/abnormal. Lab Interpretation (test code = 55980-2) [facility]normal [facility] HospitalTroponin [id number] 02:24:00* Test Item Value Reference Range Interpretation Comme nts TROPONIN I (test code = 6424433316) <0.012 See_Comment [Automated message] The system which [...] biotin. ? Lab Interpretation (test code = 51178-8) Normal [facility]COVID[facility] (ID NOW RAPID TESTING)2020-08-11 02:15:00* Test Item Value Reference Range Interpretation Comme nts SARS-CoV-2 Rapid ID NOW (test code = 00618-9) Not Detected Not Detected DARWIN (test code = DARWIN) ID NOW COVID-19 As say is an isothermal nucleic acid amplification test intended for the qualitative detection of nucleic acid from SARS-CoV-2 viral RNA in nasopharyngeal (LAB ASSISTANT) specimens. It is used under Emergency Use [...] clinically indicated. Lab Interpretation (test code = 56248-9) Normal [facility] Metabolic Panel (NA, K, CL, CO2, GLUCOSE, BUN, CREATININE, CA)2020-08-11 02:13:00* Test Item Value Reference Range Interpretation Comme nts NA (test code = 3300018394) 137 mmol/L 135-145 K (test code = 5702222223) 4.0 mmol/L 3.5-5 CL (test code = 0321837671) 107 mmol/L 98-108 CO2 TOTAL (test code = 3462889094) 19 mmol/L 23-31 L AGAP (test code = 3061589230) 2-16 BUN (test code = 9100267877) 10 mg/dL 7-23 GLUCOSE (test code = 4613481066) 106 mg/dL 70-110 CREATININE (test code = 6747758417) 0.47 mg/dL 0.5-1.04 L CALCIUM (test code = 1729503454) 9.2 mg/dL 8.6-10.6 eGFR Calculation (Non-) (test code = 0202582360) mL/min/1.73m2 eGFR Calculation () (test code = 0197169788) mL/min/1.73m2 DARWIN (test code = DARWIN) Association [...] imaging tests). Lab Interpretation (test code = 86734-8) Abnormal [facility]Hep[facility] Function Panel (ALB, T.PRO, BILI T, BU/BC, ALT, AST, ALK PHOS)2020-08-11 02:13:00* Test Item Value Reference Range Interpretation Comme nts TOTAL BILI (test code = 6015906109) 0.4 mg/dL 0.1-1.1 BILI UNCON (test code = 3527600685) 0.3 mg/dL 0.1-1.1 BILI CONJ (test code = 5007056701) 0.0 mg/dL 0-0.3 T PROTEIN (test code = 7470052047) 7.5 g/dL 6.3-8.2 ALBUMIN (test code = 5833817821) 4.4 g/dL 3.5-5 ALK PHOS (test code = 9709758047) 48 U/L 34-122 ALTv (test code = 1742-6) 12 U/L 5-35 AST(SGOT) (test code = 0359725254) 22 U/L 13-40 Lab Interpretation (test cod e = 13715-9) Normal [facility] HospitalLipase [id number] 02:13:00* Test Item Value Reference Range Interpretation Comme nts LIPASE (test code = 9467470685) 78 U/L 0-220 Lab Interpretation (test cod e = 28644-3) Normal [facility] HospitalLactic Acid Whole Hlyhu3529-76-58 02:05:00* Test Item Value Reference Range Interpretation Comme nts LACTIC ACID (test code = 4205494095) 1.47 mmol/L 0.5-2.2 Lab Interpretation (test cod e = 61841-4) Normal [facility] HospitalXR FOREARM 2 VW [id number] 14:31:40No acute bony abnormality. Soft tissue swelling. [...] reviewed this study and agree with the abovereport.[facility]COVID[facility] (ID NOW RAPID TESTING)2020-08-07 14:18:00* Test Item Value Reference Range Interpretation Comme nts SARS-CoV-2 Rapid ID NOW (test code = 77359-8) Not Detected Not Detected DARWIN (test code = DARWIN) ID NOW COVID-19 As say is an isothermal nucleic acid amplification test intended for the qualitative detection of nucleic acid from SARS-CoV-2 viral RNA in nasopharyngeal (LAB ASSISTANT) specimens. It is used under Emergency Use [...] clinically indicated. Lab Interpretation (test code = 77087-2) Normal [facility] HospitalTROPONIN [id number] 02:54:00* Test Item Value Reference Range Interpretation Comme nts TROPONIN I (test code = 1732858497) <0.012 See_Comment [Automated message] The system which [...] biotin. ? Lab Interpretation (test code = 41591-4) Normal [facility]LIPASE2020-12-25 02:37:00* Test Item Value Reference Range Interpretation Comme nts LIPASE (test code = 8776113402) 76 U/L 0-220 Lab Interpretation (test cod e = 23723-5) Normal [facility] HospitalURINALYSIS2020-12-25 01:54:00* Test Item Value Reference Range Interpretation Comme nts APPEARANCE (test code = 3160972492) Clear Clear COLOR (test code = 9413032508) Straw Yellow A PH (test code = 3851963127) 4.8-8.0 SP GRAVITY (test code = 6805516294) 1.003-1.030 GLU U QUAL (test code = 3221100359) Normal Normal BLOOD (test code = 6497939321) 3+ Negative A KETONES (test code = 3849149146) Negative Negative PROTEIN (test code = 2887-8) Negative Negative UROBILIN (test code = 6540380103) Normal Normal BILIRUBIN (test code = 5484955338) Negative Negative NITRITE (test code = 3350018207) Negative Negative LEUK MARC (test code = 8349796263) Negative Negative RBC/HPF (test code = 6021976896) See_Comment [Automated [employer]] The system which generated this result transmitted reference range: 0 - 3 HPF. The reference range was not used to interpret this result as normal/abnormal. WBC/HPF (test code = 0982804529) <1 See_Comment [Automated messa ge] The system which generated this result transmitted reference range: 0 - 5 HPF. The reference range was not used to interpret this result as normal/abnormal. BACTERIA (test code = 7575680657) Few Negative A MUCOUS (test code = 0225770937) Slight Negative LPF A SQ EPITH (test code = 2279830730) HPF Lab Interpretation (test code = 52466-2) Abnormal [facility] WITH [id number] 00:57:00* Test Item Value Reference Range Interpretation Comme nts WBC (test code = 6690-2) See_Comment [Automated messa ge] The system which generated this result transmitted reference range: 4.30 - 11.10 10*3/?L. The reference range was not used to interpret this result as normal/abnormal. RBC (test code = 789-8) See_Comment [Automated [employer]] The system which generated this result [...] 34.0 g/dL 31.6-35.1 RDW-SD (test code = 05918-7) 41.7 fL 39-49.9 RDW-CV (test code = 788-0) 13.2 % 12-15.5 PLT (test code = 777-3) See_Comment [Automated messa ge] The system which generated this result transmitted reference range: 166 - 358 10*3/?L. The reference range was not used to interpret this result as normal/abnormal. MPV (test code = 07418-1) 9.4 fL 9.5-12.9 L NRBC/100 WBC (test code = 5653356353) See_Comment [Automated [employer]] The system which generated this result transmitted reference range: 0.0 - 10.0 /100 WBCs. The reference range was not used to interpret this result as normal/abnormal. NRBC x10^3 (test code = 4893074726) <0.01 See_Comment [Automated [employer]] The system which generated this result transmitted reference range: 10*3/?L. The reference range was not used to interpret this result as normal/abnormal. GRAN MAT (NEUT) % (test code = 770-8) 51.8 % IMM GRAN % (test code = 6183844276) 0.50 % LYMPH % (test code = 736-9) 40.7 % MONO % (test code = 5905-5) 4.0 % EOS % (test code = 713-8) 2.5 % BASO % (test code = 706-2) 0.5 % GRAN MAT x10^3(ANC) (test code = 7142175724) 5.38 10*3/uL 1.88-7.09 IMM GRAN x10^3 (test code = 8092142105) 0.05 10*3/uL 0-0.06 LYMPH x10^3 (test code = 731-0) 4.22 10*3/uL 1.32-3.29 H MONO x10^3 (test code = 742-7) 0.42 10*3/uL 0.33-0.92 EOS x10^3 (test code = 711-2) 0.26 10*3/uL 0.03-0.39 BASO x10^3 (test code = 704-7) 0.05 10*3/uL 0.01-0.07 Lab Interpretation (test code = 99057-6) Abnormal [facility] HospitalADC,CLC OR LCC ONLY - INFLUENZA A & B DIRECT [id number] 00:51:00* Test Item Value Reference Range Interpretation Comme nts Influenza A (test code = 21457-9) Negative Negative Influenza B (test code = 12392-8) Negative Negative Lab Interpretation (test cod e = 99736-0) Normal [facility] HospitalPOCT CFOP8706-07-26 00:51:00* Test Item Value Reference Range Interpretation Comme nts POCT PREG (test code = 1605) negative On board controls acceptable with C Line (test code = 3574) present POCT PREG LOT # (test code = 3575) [id number] POCT PREG TEST DATE ( test code = 3576) 11/04/2021 Lab Interpretation (test cod e = 38626-8) Normal [facility] HospitalTROPONIN [id number] 00:46:00* Test Item Value Reference Range Interpretation Comme nts TROPONIN I (test code = 9679625572) <0.012 See_Comment [Automated message] The system which [...] biotin. ? Lab Interpretation (test code = 99108-9) Normal [facility] (NA, K, CL, CO2, GLUCOSE, BUN, CREATININE, CA)2020-07-01 00:46:00* Test Item Value Reference Range Interpretation Comme nts NA (test code = 8376065852) 141 mmol/L 135-145 K (test code = 7698091327) 3.8 mmol/L 3.5-5 CL (test code = 9198734782) 108 mmol/L 98-108 CO2 TOTAL (test code = 9915981782) 25 mmol/L 23-31 AGAP (test code = 4336372751) 2-16 BUN (test code = 4412960231) 10 mg/dL 7-23 GLUCOSE (test code = 9427404316) 92 mg/dL 70-110 CREATININE (test code = 0789370749) 0.58 mg/dL 0.5-1.04 CALCIUM (test code = 6120230655) 9.4 mg/dL 8.6-10.6 eGFR Calculation (Non-) (test code = 1941830719) mL/min/1.73m2 eGFR Calculation () (test code = 1387013742) mL/min/1.73m2 DARWIN (test code = DARWIN) Association [...] or urine or abnormalities in imaging tests). [facility] HospitalN-TERMINAL UHI-XJI2048-54-25 00:43:00* Test Item Value Reference Range Interpretation Comme nts NT-proBNP (test code = 5191224639) 332 pg/mL See_Comment H [Automated message] The system which generated this result transmitted reference range: <=125. The reference range was not used to interpret this result as normal/abnormal. DARWIN (test code = DARWIN) Biotin has been reported to cause a negative bias, interpret results relative to patient's use of biotin. Lab Interpretation (test code = 63369-5) Abnormal [facility]XR CHEST 1 [id number] 00:20:50No acute cardiopulmonary abnormality Preliminary Report Dictated [...] reviewed this study and agree with the abovereport.[facility] CERVICAL SPINE WO KZNWLKRR3950-55-55 23:23:[address] EXAMINATION: CT [...] lung apices are unremarkable. IMPRESSIONUnremarkable cervical spine CT.[facility] HospitalPOCO Macf6555-65-59 01:50:00* Test Item Value Reference Range Interpretation Comme nts POCT PREG (test code = 1605) Negative On board controls acceptable with C Line (test code = 3574) Present POCT PREG LOT # (test code = 3575) [id number] POCT PREG TEST DATE ( test code = 3576) 10/05/2021 Lab Interpretation (test cod e = 16483-2) Normal [facility] HospitalTroponin [id number] 01:24:00* Test Item Value Reference Range Interpretation Comme nts TROPONIN I (test code = 7274223810) <0.012 See_Comment [Automated message] The system which [...] biotin. ? Lab Interpretation (test code = 28730-8) Normal [facility] (ID NOW RAPID TESTING)2020-06-13 01:22:00* Test Item Value Reference Range Interpretation Comme nts SARS-CoV-2 Rapid ID NOW (test code = 54700-1) Not Detected Not Detected DARWIN (test code = DARWIN) ID NOW COVID-19 As say is an isothermal nucleic acid amplification test intended for the qualitative detection of nucleic acid from SARS-CoV-2 viral RNA in nasopharyngeal (LAB ASSISTANT) specimens. It is used under Emergency Use [...] clinically indicated. Lab Interpretation (test code = 23051-7) Normal [facility] HospitalD-PZFZN6654-47-11 01:16:00* Test Item Value Reference Range Interpretation Comments D-DIMER (test code = 5345891783) See_Comment [Automated message] The system which generated [...] a diagnosis. Lab Interpretation (test code = 09384-1) Normal [facility] HospitalBasi Metabolic Panel (NA, K, CL, CO2, GLUCOSE, BUN, CREATININE, CA)2020-06-13 01:13:00* Test Item Value Reference Range Interpretation Comme nts NA (test code = 6115984095) 137 mmol/L 135-145 K (test code = 7753400145) 4.2 mmol/L 3.5-5 CL (test code = 4435502672) 103 mmol/L 98-108 CO2 TOTAL (test code = 2487651803) 25 mmol/L 23-31 AGAP (test code = 8862105536) 2-16 BUN (test code = 7753964066) 11 mg/dL 7-23 GLUCOSE (test code = 2115935227) 98 mg/dL 70-110 CREATININE (test code = 1300756455) 0.52 mg/dL 0.5-1.04 CALCIUM (test code = 0853572573) 10.3 mg/dL 8.6-10.6 eGFR Calculation (Non-) (test code = 9360945077) mL/min/1.73m2 eGFR Calculation () (test code = 3380786867) mL/min/1.73m2 DARWIN (test code = DARWIN) Association [...] or urine or abnormalities in imaging tests). [facility] HospitalHepatic Function Panel (ALB, T.PRO, BILI T, BU/BC, ALT, AST, ALK PHOS)2020-06-13 01:13:00* Test Item Value Reference Range Interpretation Comme nts TOTAL BILI (test code = 8983774390) 0.5 mg/dL 0.1-1.1 BILI UNCON (test code = 0372258737) 0.3 mg/dL 0.1-1.1 BILI CONJ (test code = 4937016940) 0.0 mg/dL 0-0.3 T PROTEIN (test code = 1408500058) 7.3 g/dL 6.3-8.2 ALBUMIN (test code = 9926084819) 4.2 g/dL 3.5-5 ALK PHOS (test code = 6789253774) 85 U/L 34-122 ALTv (test code = 1742-6) 66 U/L 5-35 H AST(SGOT) (test code = 5611776446) 32 U/L 13-40 Lab Interpretation (test cod e = 72827-0) Abnormal [facility] HospitalLipase Plysg5362-67-14 01:13:00* Test Item Value Reference Range Interpretation Comme nts LIPASE (test code = 4592402741) 60 U/L 0-220 Lab Interpretation (test cod e = 77784-1) Normal [facility] HospitalUrinalysis2020-12-07 01:03:00* Test Item Value Reference Range Interpretation Comme nts APPEARANCE (test code = 5310578867) Clear Clear COLOR (test code = 7316637528) Straw Yellow A PH (test code = 3448335202) 4.8-8.0 SP GRAVITY (test code = 2538371939) 1.003-1.030 GLU U QUAL (test code = 5467746951) Normal Normal BLOOD (test code = 4059673344) Negative Negative KETONES (test code = 4431818280) Negative Negative PROTEIN (test code = 2887-8) Negative Negative UROBILIN (test code = 8260135929) Normal Normal BILIRUBIN (test code = 8825655190) Negative Negative NITRITE (test code = 6298490701) Negative Negative LEUK MARC (test code = 4558216278) Negative Negative RBC/HPF (test code = 9354954563) See_Comment [Automated [employer]] The system which generated this result transmitted reference range: 0 - 3 HPF. The reference range was not used to interpret this result as normal/abnormal. WBC/HPF (test code = 4142444707) See_Comment [Automated [employer]] The system which generated this result transmitted reference range: 0 - 5 HPF. The reference range was not used to interpret this result as normal/abnormal. BACTERIA (test code = 1960700397) Negative Negative MUCOUS (test code = 1578888123) Slight Negative LPF A SQ EPITH (test code = 3056659957) HPF Lab Interpretation (test code = 59303-5) Abnormal [facility] with Kwnfbsxftuit7211-30-39 00:55:00* Test Item Value Reference Range Interpretation [...] 34.5 g/dL 31.6-35.1 RDW-SD (test code = 98650-5) 42.5 fL 39-49.9 RDW-CV (test code = 788-0) 13.5 % 12-15.5 PLT (test code = 777-3) See_Comment [Automated messa ge] The system which generated this result transmitted reference range: 166 - 358 10*3/?L. The reference range was not used to interpret this result as normal/abnormal. MPV (test code = 75801-1) 10.1 fL 9.5-12.9 NRBC/100 WBC (test code = 3381108388) See_Comment [Automated [employer]] The system which generated this result transmitted reference range: 0.0 - 10.0 /100 WBCs. The reference range was not used to interpret this result as normal/abnormal. NRBC x10^3 (test code = 5216399724) <0.01 See_Comment [Automated messa ge] The system which generated this result transmitted reference range: 10*3/?L. The reference range was not used to interpret this result as normal/abnormal. GRAN MAT (NEUT) % (test code = 770-8) 61.9 % IMM GRAN % (test code = 8833818319) 0.60 % LYMPH % (test code = 736-9) 30.6 % MONO % (test code = 5905-5) 5.2 % EOS % (test code = 713-8) 1.4 % BASO % (test code = 706-2) 0.3 % GRAN MAT x10^3(ANC) (test code = 0742490381) 8.03 10*3/uL 1.88-7.09 H IMM GRAN x10^3 (test code = 4011438940) 0.08 10*3/uL 0-0.06 H LYMPH x10^3 (test code = 731-0) 3.97 10*3/uL 1.32-3.29 H MONO x10^3 (test code = 742-7) 0.68 10*3/uL 0.33-0.92 EOS x10^3 (test code = 711-2) 0.18 10*3/uL 0.03-0.39 BASO x10^3 (test code = 704-7) 0.04 10*3/uL 0.01-0.07 Lab Interpretation (test code = 75503-7) [facility]APID TESTING)2020-05-17 00:27:00* Test Item Value Reference Range Interpretation Comme nts SARS-CoV-2 Rapid ID NOW (test code = 78950-5) Not Detected Not Detected DARWIN (test code = DARWIN) ID NOW COVID-19 As say is an isothermal nucleic acid amplification test intended for the qualitative detection of nucleic acid from SARS-CoV-2 viral RNA in nasopharyngeal (LAB ASSISTANT) specimens. It is used under Emergency Use [...] clinically indicated. Lab Interpretation (test code = 52776-7) Normal [facility] Metabolic Panel (NA, K, CL, CO2, GLUCOSE, BUN, CREATININE, CA)2020-05-17 00:00:00* Test Item Value Reference Range Interpretation Comme nts NA (test code = 1358295308) 136 mmol/L 135-145 K (test code = 4180838417) 3.6 mmol/L 3.5-5 CL (test code = 7847150892) 103 mmol/L 98-108 CO2 TOTAL (test code = 6731935382) 26 mmol/L 23-31 AGAP (test code = 6325840156) 2-16 BUN (test code = 2849605663) 13 mg/dL 7-23 GLUCOSE (test code = 2517273695) 130 mg/dL 70-110 H CREATININE (test code = 4292354597) 0.58 mg/dL 0.5-1.04 CALCIUM (test code = 9128636526) 9.9 mg/dL 8.6-10.6 eGFR Calculation (Non-) (test code = 0696329276) mL/min/1.73m2 eGFR Calculation () (test code = 4451367910) mL/min/1.73m2 DARWIN (test code = DARWIN) Association [...] imaging tests). Lab Interpretation (test code = 60519-1) [facility]normal [facility] (ALB, T.PRO, BILI T, BU/BC, ALT, AST, ALK PHOS)2020-05-17 00:00:00* Test Item Value Reference Range Interpretation Comme nts TOTAL BILI (test code = 9091937138) 0.4 mg/dL 0.1-1.1 BILI UNCON (test code = 9736021092) 0.3 mg/dL 0.1-1.1 BILI CONJ (test code = 3727726796) 0.0 mg/dL 0-0.3 T PROTEIN (test code = 6062575721) 7.3 g/dL 6.3-8.2 ALBUMIN (test code = 3875360355) 4.3 g/dL 3.5-5 ALK PHOS (test code = 0855087662) 118 U/L 34-122 ALTv (test code = 1742-6) 119 U/L 5-35 H AST(SGOT) (test code = 3236294322) 47 U/L 13-40 H Lab Interpretation (test cod e = 85631-1) [facility]normal [facility] Gcsib3402-08-27 00:00:00* Test Item Value Reference Range Interpretation Comme nts LIPASE (test code = 1320055723) 70 U/L 0-220 Lab Interpretation (test cod e = 95729-5) Normal [facility] with Xourmxrjecpg1084-24-60 23:49:00* Test Item Value Reference Range Interpretation Comme nts WBC (test code = 6690-2) See_Comment [Automated messa ge] The system which generated this result transmitted reference range: 4.30 - 11.10 10*3/?L. The reference range was not used to interpret this result as normal/abnormal. RBC (test code = 789-8) See_Comment [Automated [employer] ge] The system which generated this result [...] 33.3 g/dL 31.6-35.1 RDW-SD (test code = 83611-7) 42.8 fL 39-49.9 RDW-CV (test code = 788-0) 13.5 % 12-15.5 PLT (test code = 777-3) See_Comment [Automated [employer]] The system which generated this result transmitted reference range: 166 - 358 10*3/?L. The reference range was not used to interpret this result as normal/abnormal. MPV (test code = 20017-7) 9.8 fL 9.5-12.9 NRBC/100 WBC (test code = 4835904611) See_Comment [Automated [employer] ssage] The system which generated this result transmitted reference range: 0.0 - 10.0 /100 WBCs. The reference range was not used to interpret this result as normal/abnormal. NRBC x10^3 (test code = 7963565961) <0.01 See_Comment [Automated [employer] ssage] The system which generated this result transmitted reference range: 10*3/?L. The reference range was not used to interpret this result as normal/abnormal. GRAN MAT (NEUT) % (test code = 770-8) 62.5 % IMM GRAN % (test code = 1857838658) 0.50 % LYMPH % (test code = 736-9) 29.8 % MONO % (test code = 5905-5) 5.6 % EOS % (test code = 713-8) 1.1 % BASO % (test code = 706-2) 0.5 % GRAN MAT x10^3(ANC) (test code = 2953207990) 6.65 10*3/uL 1.88-7.09 IMM GRAN x10^3 (test code = 7650822065) 0.05 10*3/uL 0-0.06 LYMPH x10^3 (test code = 731-0) 3.17 10*3/uL 1.32-3.29 MONO x10^3 (test code = 742-7) 0.59 10*3/uL 0.33-0.92 EOS x10^3 (test code = 711-2) 0.12 10*3/uL 0.03-0.39 BASO x10^3 (test code = 704-7) 0.05 10*3/uL 0.01-0.07 [facility]ET[facility]INOPHEN2020-11-[facility] 08:24:00* Test Item Value Reference Range Interpretation Comme nts ACETAMINOP (test code = 8022937119) 21.0 ug/mL 10-30 DARWIN (test code = DARWIN) Toxic: Greater joan n 200 ug/mL @ 4 hour post ingestion or greater than 50 ug/mL @ 12 hour post ingestion Lab Interpretation (test code = 67632-6) Normal [facility]ETHANOL2020-11-08 06:37:00* Test Item Value Reference Range Interpretation Comme nts ALCOHOL (test code = 7701937973) <10 mg/dL DARWIN (test code = DARWIN) <10 Pfpbgwam06-587 Toxic>100 Depression of [employer]>400 Fatalities Reported [facility] (NA, K, CL, CO2, GLUCOSE, BUN, CREATININE, CA)2020-05-15 06:35:00* Test Item Value Reference Range Interpretation Comme nts NA (test code = 2987153493) 137 mmol/L 135-145 K (test code = 7707855839) 4.0 mmol/L 3.5-5 CL (test code = 6094743238) 106 mmol/L 98-108 CO2 TOTAL (test code = 0796199613) 25 mmol/L 23-31 AGAP (test code = 4057712486) 2-16 BUN (test code = 4782739290) 9 mg/dL 7-23 GLUCOSE (test code = 7433841334) 95 mg/dL 70-110 CREATININE (test code = 7286356594) 0.53 mg/dL 0.5-1.04 CALCIUM (test code = 7216404135) 9.0 mg/dL 8.6-10.6 eGFR Calculation (Non-) (test code = 9043185953) mL/min/1.73m2 eGFR Calculation () (test code = 9523257714) mL/min/1.73m2 DARWIN (test code = DARWIN) Association [...] or urine or abnormalities in imaging tests). [facility] (ALB, T.PRO, BILI T, BU/BC, ALT, AST, ALK PHOS)2020-05-15 06:35:00* Test Item Value Reference Range Interpretation Comme nts TOTAL BILI (test code = 4229765904) 0.4 mg/dL 0.1-1.1 BILI UNCON (test code = 7394359086) 0.2 mg/dL 0.1-1.1 BILI CONJ (test code = 3102338979) 0.0 mg/dL 0-0.3 T PROTEIN (test code = 8257248854) 6.3 g/dL 6.3-8.2 ALBUMIN (test code = 6873119637) 3.8 g/dL 3.5-5 ALK PHOS (test code = 6418038384) 117 U/L 34-122 ALTv (test code = 1742-6) 179 U/L 5-35 H AST(SGOT) (test code = 2707731508) 194 U/L 13-40 H Lab Interpretation (test cod e = 27999-1) Abnormal [facility] HospitalLipase Rpryw1445-30-43 06:35:00* Test Item Value Reference Range Interpretation Comme nts LIPASE (test code = 5171886741) 92 U/L 0-220 Lab Interpretation (test cod e = 01074-9) Normal [facility] HospitalaPTT2020-11-08 06:22:00* Test Item Value Reference Range Interpretation Comme nts APTT Patient (test code = 3173-2) See_Comment [Automated message] The system which generated this result transmitted reference range: 23 - 38 Seconds. The reference range was not used to interpret this result as normal/abnormal. DARWIN (test code = DARWIN) The [facility] patient population mean normal value for aPTT is 30 seconds. Lab Interpretation (test code = 69394-0) Normal [facility] HospitalUrinalysis2020-11-08 06:21:00* Test Item Value Reference Range Interpretation Comme nts APPEARANCE (test code = 5537296718) Clear Clear COLOR (test code = 4325100705) Yellow Yellow PH (test code = 5558893189) 4.8-8.0 SP GRAVITY (test code = 5106898974) 1.003-1.030 GLU U QUAL (test code = 9772547212) Normal Normal BLOOD (test code = 7034121469) Negative Negative KETONES (test code = 9907863277) Negative Negative PROTEIN (test code = 2887-8) Negative Negative UROBILIN (test code = 4276515190) Normal Normal BILIRUBIN (test code = 3983988338) Negative Negative NITRITE (test code = 4248732559) Negative Negative LEUK MARC (test code = 4011712427) Negative Negative RBC/HPF (test code = 9559281545) See_Comment [Automated messa ge] The system which generated this result transmitted reference range: 0 - 3 HPF. The reference range was not used to interpret this result as normal/abnormal. WBC/HPF (test code = 0239210825) <1 See_Comment [Automated messa ge] The system which generated this result transmitted reference range: 0 - 5 HPF. The reference range was not used to interpret this result as normal/abnormal. BACTERIA (test code = 3902484592) Negative Negative MUCOUS (test code = 9670311678) Slight Negative LPF A SQ EPITH (test code = 0653762409) HPF Lab Interpretation (test code = 71067-8) Abnormal [facility] HospitalProthrombin Time (PT) / [id number] 06:20:00 * Test Item Value Reference Range [...] the indications. Lab Interpretation (test code = 22628-9) Normal [facility]AD [facility] IWKMGS5033-13-24 06:19:00* Test Item Value Reference Range Interpretation Comme nts BENZO U (test code = 2858170575) Presumptive Positive Negative A ROSA U (test code = 3180870998) Negative Negative AMPHET (test code = 5240669549) Negative Negative THC (test code = 1665054938) Negative Negative METHADONE (test code = 9681092666) Negative Negative Meth U (test code = 4842173604) Negative Negative OPIATES (test code = 7929447257) Negative Negative Cocaine Metabolite (test code = 1181368711) Negative Negative PROPOXY (test code = 3524942731) Negative Negative Tric U (test code = 0903056507) Negative Negative PCP (test code = 0884892035) Negative Negative OXYCOD (test code = 9032505017) Negative Negative DARWIN (test code = DARWIN) [...] legal testing). Lab Interpretation (test code = 03549-3) Abnormal [facility] with Frfqvqyzcunp8334-23-21 06:07:00* Test Item Value Reference Range Interpretation Comme nts WBC (test code = 6690-2) See_Comment [Automated [employer]] The system which generated this result transmitted reference range: 4.30 - 11.10 10*3/?L. The reference range was not used to interpret this result as normal/abnormal. RBC (test code = 789-8) See_Comment [Automated [employer]] The system which generated this result transmitted [...] 34.3 g/dL 31.6-35.1 RDW-SD (test code = 83157-5) 43.4 fL 39-49.9 RDW-CV (test code = 788-0) 13.7 % 12-15.5 PLT (test code = 777-3) See_Comment [Automated messa ge] The system which generated this result transmitted reference range: 166 - 358 10*3/?L. The reference range was not used to interpret this result as normal/abnormal. MPV (test code = 15812-9) 9.7 fL 9.5-12.9 NRBC/100 WBC (test code = 9246107603) See_Comment [Automated [employer]] The system which generated this result transmitted reference range: 0.0 - 10.0 /100 WBCs. The reference range was not used to interpret this result as normal/abnormal. NRBC x10^3 (test code = 6563930930) <0.01 See_Comment [Automated messa ge] The system which generated this result transmitted reference range: 10*3/?L. The reference range was not used to interpret this result as normal/abnormal. GRAN MAT (NEUT) % (test code = 770-8) 50.6 % IMM GRAN % (test code = 0385495291) 0.20 % LYMPH % (test code = 736-9) 42.1 % MONO % (test code = 5905-5) 5.5 % EOS % (test code = 713-8) 1.2 % BASO % (test code = 706-2) 0.4 % GRAN MAT x10^3(ANC) (test code = 5947348250) 4.31 10*3/uL 1.88-7.09 IMM GRAN x10^3 (test code = 1737461229) <0.03 0-0.06 LYMPH x10^3 (test code = 731-0) 3.58 10*3/uL 1.32-3.29 H MONO x10^3 (test code = 742-7) 0.47 10*3/uL 0.33-0.92 EOS x10^3 (test code = 711-2) 0.10 10*3/uL 0.03-0.39 BASO x10^3 (test code = 704-7) 0.03 10*3/uL 0.01-0.07 Lab Interpretation (test code = 95507-4) Abnormal [facility] HospitalPOCT Qjnc4076-47-00 05:53:00* Test Item Value Reference Range Interpretation Comme nts POCT PREG (test code = 1605) Negative On board controls acceptable with C Line (test code = 3574) Present POCT PREG LOT # (test code = 3575) HCG [id number] POCT PREG TEST DATE ( test code = 3576) 10/05/2021 Lab Interpretation (test cod e = 48720-4) Normal [facility] History and Physical Notes Date/Time Note [...] Mercado MD, Last Rate: 100 mL/hr at 02/15/232246, 1,000 mL at 02/15/232246 morpHINE (2 mg/mL) injection 2 mg, 2 mg, Slow IV Push, Q4HPRN, Flako Mercado MD, 2 mg at 02/15/23 2240 traMADoL (ULTRAM) tablet 50 mg, 50 mg, Oral, Q8HPRN, Flako Mercado MD Objective: Vitals: Vitals: 02/15/23 1911 02/15/23200802/15/23201502/15/232018 BP: 105/67 122/70 Pulse: 72 66 Resp: 21 18 Temp: 36.1 ?C (96.9 ?F) TempSrc: SpO2: 95% 98% Weight: 99 kg (218 lb 3.2 oz) 99 kg (218 lb 3.2 oz) 99 kg (218 lb 3.2 oz) Height: 1.575 m (5' 2") 1.575 m (5' 2") 1.575 m (5' 2") I/O's: Intake/Output Summary (Last 24 hours) at 02/16/2023118 Last data filed at 02/15/20232008 Gross per [...] acute, severe Comparison: September 11, 2021 RL: 97314 Ordering Clinician: LEEANNE WISE Technique: Axial CT [...] the ACR Incidental Findings Committee;Journal of the [place] [employer] Volume 7, Issue 10, Pages 586-810, April 2010). CHEST 1 VW Result Date: [...] process is identified in the chest. RL: 6328 END OF REPORT Assessment and plan: Principal [...] Flako Mercado MD 02/16/2023 IM-INTERNAL MEDICINE STAFF [facility] - Health Notes Date/Time Note Provider Source 2024-02-06 11:11:13 Chief Complaint Patient presents with Shoulder Pain Left shoulder pain with limited range of motion x 6 months, takes OTC tylenol for the pain as needed but pain is getting worse. 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 Not working currently [facility] 2023-12-13 09:19:27 Chief Complaint Patient presents with [facility] F/U [facility] ER follow up with admission on 12/04/2023 for chest pains. She had a stent placed by Dr. Arthur. Jennifer Del Castillo MA II Jennifer Del Castillo MA, II [facility] 2023-12-03 10:49:31 Chief Complaint Patient presents with Anxiety Follow up on anxiety/depression. She states that it has gotten worse since last visit. She had an appointment with [facility] this morning and it was canceled due to internet outage. Jennifer Del Castillo MA II Jennifer Del Castillo MA, II [facility] 2023-10-29 13:21:02 Chief Complaint Patient presents with [facility] [employer] told her she needed to go to a different doctor because they could not give her anything else Marbella Oh LVN [facility] 2023-10-11 00:41:45 Pt given printed and verbal [...] in no apparent distress. Becky Rios RN [facility] 2023-10-10 21:25:46 Pt arrived ambulatory but states feeling like she is going to pass out, Pt placed in ED wheelchair. Pt c/o " I have pain in my back on the left side, it mark when I pee, Im nauseous, I feel like Im going to pass out and I have been crapping on myself." Shaneka Atkinson RN [facility] 2023-07-01 22:58:41 Pt discharged with diagnosis of RUQ abd pain and chronic abd pain. Printed and verbal instructions reviewed with and given to pt. Prescriptions given x 2. Pt verbalized understanding of teaching, medications, and recommended follow-up. Denies questions or concerns at this time. Pt ambulatory at discharge. Appears in no apparent distress. No ataxia noted. ER Adeline Floyd RN [facility] 2023-07-01 19:46:03 Pt states sharp pain to the RLQ that started today around noon, pt denies any urinary symptoms, vomiting X 2 ER Razia Yost RN [facility] 2023-03-10 00:14:00 Formatting of this n [...] noted upon discharge Pt ambulated to the [facility] with steady gait Razia Yost RN [facility] 2023-03-09 23:06:10 Formatting of this n ote might be different from the original. Received report from Evy RAMIREZ, assuming care. Brandy Lou RN [facility] 2023-03-09 22:38:16 Formatting of this n ote might be different from the original. Ordered CT scan done. Patient states LQ abdominal pain now 01/14. Guanaco Caceres RN [facility] 2023-03-09 22:00:00 Formatting of this n ote might be different from the original. POCT test negative. Patient states RLQ abdominal pain improved briefly with IV Morphine administration, then returned at 03/17. Dr Richards informed, and patient medicated as ordered with Fentanyl 75 mcg slow IVP. T [facility] 2023-03-09 21:00:00 Formatting of this n ote might be different from the original. Medicated as per order with Zofran 4 mg slow IVP and Morphine 4 mg slow IVP for RLQ abdominal pain 03/17. T [facility] 2023-03-09 20:17:52 Formatting of this n ote might be different from the original. Pt arrived ambulatory with complaints of RLQ abd pain since yesterday. Pt reports N/V/D. Last took Tylenol at 3pm. Denies dysuria but reports frequency. Hx: Anxiety, Depression, PTSD, Pancreatitis Aline Lou RN [facility] 2023-03-02 01:30:22 Formatting of this n ote might be different from the original. Discharged home ambulatory. Home instructions given. T John Ventura RN [facility] 2023-03-01 19:32:44 Formatting of this n ote might be different from the original. Pt CO of N/V, left lower back pain, painful urination and diarrhea since yesterday, states she was admitted last week for pancreatitis. Pt already promethazine tablets today with no relief. Jean Carlos Alegria RN [facility] 2023-03-01 19:22:00 Formatting of this n ote is different from the original. [facility] Emergency Department Note Patient Name: Charity Roca Date of : 1980 43 year old female Treatment [facility]: [facility] Primary Care Physician: Carlos Solano Patient Escorted by: Family [5] Mode of Arrival: Personal means [1] EMS Treatment Prior to ED Arrival: CLIENT EXECUTIVE treatment: None Travel and Exposure Screening: Symptoms [...] History provided by: Patient and medical records language interpreter used: No Abdominal Pain Pain location: Generalized [...] negative Physical Exam: ED Triage Vitals [03/01/23 1934] Weight 99.8 kg (220 lb) Actual or [...] adenoma on noncontrast imaging. RL: 460 AFC: 14055 Lab Results: Lab Results CBC WITH DIFF [...] POCT PREG TEST DATE COMP. METABOLIC PANEL (45505) NA 139 135 - 145 mmol/L K [...] CONTRAST CBC WITH DIFF COMP. METABOLIC PANEL (37154) LIPASE URINALYSIS POCT TEST Orders Placed This [...] Medical Screening Begins OLIVIA GARCIA MD -- 03/01/23 230 First Provider Evaluation OLIVIA GARCIA MD -- [...] Follow-up: Electronically signed by: Olivia Garcia MD 03/02/23121 T [facility] 2023-02-18 02:22:03 Formatting of this n [...] in no apparent distress, Linda Ayala RN [facility] 2023-02-17 22:53:36 Formatting of this n [...] be from her anxiety. Aline Lou RN [facility] 2023-02-17 15:59:15 Formatting of this n [...] Outcome: Adequate for discharge Beata Lamar RN [facility] 2023-02-17 00:21:19 Formatting of this n [...] Goal: Effective communication Outcome: Progressing as expected [facility] 2023-02-16 16:55:55 Formatting of this n ote [...] Goal: Effective communication Outcome: Progressing as expected [facility] hospital 2023-02-16 03:35:03 Formatting of this n ote [...] Goal: Effective communication Outcome: Progressing as expected [facility] hospital 2023-02-15 19:41:18 Formatting of this n ote might be different from the original. Nurse Report Report given to JAMES Gatica. Chief complaint, assessment findings, infusion verify and orders reviewed. Plan of care discussed with both nurses. Stacie Man RN [facility] Stacie Man RN [facility] 2023-02-15 13:40:01 Formatting of this n [...] amb without assistance. Appears in no distress. [facility] [employer] 2023-02-15 13:23:00 Associated Order(s): EKG-12 Lead ROUTINE ONCE Pre-Procedure Diagnose(s): Chest pain, unspecified type Post-Procedure Diagnose(s): Acute pancreatitis, unspecified complication status, unspecified pancreatitis type [facility] Emergency Department Note Patient Name: Charity Roca Date of : 1980 42 year old female Treatment Room: [place] [address] Primary Care Physician: Carlos Solano Patient Escorted by: Self [9] Mode of Arrival: Personal means [1] EMS Treatment Prior to ED Arrival: CLIENT EXECUTIVE treatment: None Chief Complaint: Chief Complaint Patient [...] normal. Judgment: Judgment normal. Radiology: reviewed by hi CT ABDOMEN PELVIS W CONTRAST Final Result [...] the ACR Incidental Findings Committee;Journal of the [place] [employer] Volume 7, Issue 10, Pages 828-220, April 2010). CHEST 1 VW Final Result [...] process is identified in the chest. RL: 1993 END OF REPORT Lab Results: reviewed by [...] 0.01 - 0.07 10*3/uL COMP. METABOLIC PANEL (82023) - Abnormal NA 138 135 - 145 [...] INTERPRETATION CBC WITH DIFF COMP. METABOLIC PANEL (69515) LIPASE Orders Placed This Encounter Medications ibuprofen [...] Eval: ED Events Date/Time Event User Comments 02/15/23 1345 Medical Screening Begins CANDI WISE -- 02/15/23 1345 First Provider Evaluation CANDI WISE -- No [...] ED Physician in the absence of a stock hanger: yes Previous ECG: Previous ECG: Unavailable Interpretation: [...] Temp src Pulse Resp SpO2 Height Weight 08/11/23 1800 111/81 -- -- 83 20 94 % -- -- 02/15/23 1700 109/71 -- -- 83 15 97 % -- -- 02/15/23 1341 134/83 36.8 ?C (98.3 ?F) Oral 103 20 97 % 1.6 m (5' 3") 99.8 kg (220 lb) Disposition/Condition: ED Disposition ED Disposition Admit - Observation Condition -- Comment Is (or was) this a planned re-admission?: No Treatment Team: [facility] [[id number]] Is this patient COVID positive or a patient under investigation (PUI)?: No Electronically signed by: Leeanne Wise NP 02/15/231910 Associated attestation - Bushra Rios DO - 02/16/2023 7:30 AM CDT I was personally available for consultation in the Emergency Department during this encounter and patient evaluation by Leeanne Wise. [facility]
[2024-03-14] MEDS ORDERED: NA CHLORIDE 0.9% 0 ML ONE (00:45)
[2024-03-14] MEDS ORDERED: MORPHINE 4 MG/ML SYR ONE ×2 (00:45→03:05)
[2024-03-14] MEDS ORDERED: ONDANSETRON 4 MG/2 ML VIAL ONE ×2 (00:45→03:04)
[2024-03-14] MEDS ORDERED: PROMETHAZINE INJ 25 MG/ML AMP ONE (00:55)
[2024-03-14] MEDS ORDERED: ONDANSETRON 4 MG (ODT) TAB ONE (00:55)
[2024-03-14] MEDS ORDERED: KETOROLAC 30 MG/ML INJ ONE (00:55)
[2024-03-14] MEDS ORDERED: DICYCLOMINE HCL 10 MG CAP ONE (00:55)
[2024-03-14] MEDS ORDERED: METOCLOPRAMIDE 5 MG TAB ONE (00:56)
[2024-03-14] MEDS ORDERED: LORAZEPAM 1 MG TABLET ONE (01:44)
[2024-03-14] MEDS ORDERED: NA CHLORIDE 0.9% 1,000 ML ONE (03:05)
[2024-03-14 03:16] LABS: Absolute Basophils 0.1 K/uL (0-0.5); Absolute Eosinophils 0.1 K/uL (0-0.5); Absolute Lymphocytes (CBC) 2.6 K/uL (0.7-4.9); Absolute Monocytes 0.7 K/uL (0.1-1.3); Absolute Neutrophil 10.9 K/uL (1.8-8.0); Basophils % 0.8 % (0-1.3); Eosinophils % 0.6 % (0-4.4); Hematocrit 37.7 % (36.0-45.0); Hemoglobin 12.7 g/dL (12.0-15.0); Lymphocytes % 17.9 % (15.3-44.8); MCH 26.9 pg (27.0-35.0); MCHC 33.7 g/dL (32.0-36.0); MPV 7.3 fL (7.6-11.3); Monocytes % 4.8 % (3.3-12.3); Neutrophils % 75.9 % (41.7-73.7); Nucleated Red Blood Cells % 0.1 % (0-0); Platelets 321 thou/uL (152-406); RBC Red Blood Cell Count 4.71 M/uL (3.86-4.86); Red Cell Distribution Width 17.5 % (12.1-15.2)
[2024-03-14 03:33] LABS: Albumin 3.3 g/dL (3.4-5.0); Albumin/Globulin Ratio 0.9 (1.1-1.8); Anion Gap 11.6 mEq/L (5.0-15.0); Bilirubin Total 0.2 mg/dL (0.2-1.0); Globulin 3.7 g/dL (2.3-3.5); Potassium 3.6 mEq/L (3.5-5.1)
--- NOTE | 2024-03-14 03:48 | EDPHYS ---
Physician Documentation [facility] Name: Charity Hanks Age: 44 yrs Sex: Female : 1980 Arrival Date: 03/14/2024 Time: 00:14 Bed 19 Private MD: ED Physician Marty Singh HPI: 03/14 00:42 This 44 yrs old Female presents to ER via EMS with complaints of Abdominal sp4 Pain. 01:24 I was immediately available for consultation during this patient's visit. I did not sp4 personally see the patient or discuss the patient with the MARK. 44-year-old female with history of anxiety myocardial infarction PTSD presents with abdominal pain. Patient reports left upper abdominal pain associated with nausea. Patient was just admitted here 03/02/2024 through 03/05/2024 for acute enterocolitis versus acute pancreatitis elevated liver enzymes and elevated lipase. Also findings of 2.6 cm left adrenal nodule, anxiety depression hyperlipidemia and hypertension. History of coronary artery disease status post PCI 11/25/2023. Also history of PTSD. 01:28 Patient's medications include sertraline 150 daily, Belsomra 20 mg p.o. at bedtime, sp4 hydroxyzine 1 mg at bedtime, aspirin 81 mg bedtime, clopidogrel 75 mg daily, pantoprazole 40 mg p.o. daily, isosorbide mononitrate 60 mg p.o. daily, lorazepam 1 mg p.o. daily, Crestor [address] bedtime,. CT from 03/03/2024 - EXAM DESCRIPTION: CT - Abdomen Pelvis W Contrast - 03/02/2024 5:55 am CLINICAL HISTORY: Female, 44 years old, ABD PAIN COMPARISON: 10/03/2023 (report only available at the time of dictation), 09/10/2023 TECHNIQUE: CT acquisition of the abdomen and pelvis following the administration of IV contrast. Coronal and sagittal reformatted images provided. This exam was performed according to departmental dose-optimization program which includes automated exposure control, adjustment of the mA and/or kV according to patient size, and/or use of iterative reconstruction technique. FINDINGS: SUPPORTIVE DEVICES: None. LOWER CHEST: Mild basilar scarring/atelectasis. Normal heart size with coronary atherosclerosis. ABDOMEN AND PELVIS: Liver: Diffuse hypoenhancement relative to the spleen. Gallbladder and bile ducts: Postcholecystectomy changes with expected prominence of the bile ducts. Pancreas: Mild atrophy. Spleen: Normal. Adrenal glands: 2.6 cm left adrenal nodule with average attenuation of 15 Hounsfield units, previously described as an adenoma. Kidneys and ureters: Normal. Bladder: Nondistended without evident abnormality. Reproductive organs: Unremarkable. GI tract: Normal caliber without wall thickening. Normal appendix. A few loops of mid to distal small bowel are fluid-filled with several short air-fluid levels. Vessels: Unremarkable. Lymph nodes: No evident adenopathy. Peritoneum: No evidence of ascites, fluid collection, or free air. Abdominal wall: Umbilical surgical clip. MUSCULOSKELETAL: No acute osseous abnormality. Degenerative change of the spine and pelvis. IMPRESSION: 1. No acute abdominopelvic finding. 2. Chronic and incidental findings above. MANAGER STATISTICS: 00:17 unknown cp4 Historical: - Allergies: 00:17 No Known Allergies; cp4 - PMHx: 00:17 Anxiety; depressive disorder; Myocardial infarction; PTSD; Pancreatitis; cp4 - PSHx: 00:17 cardiac stent; cp4 - Immunization history:: Adult Immunizations up to date. - Infectious Disease History:: Denies. - Social history:: Smoking status: Patient denies any tobacco usage or history of. - Family history:: not pertinent. ROS: 01:24 Constitutional: Negative for fever, chills, and weight loss, positive for left upper sp4 quadrant abdominal pain and nausea 01:24 All other systems are negative, Exam: 01:24 Constitutional: This is a well developed, well nourished patient who is awake, alert, sp4 and in no acute distress. Head/Face: Normocephalic, atraumatic. Eyes: Pupils equal round and reactive to light, extra-ocular motions intact. Lids and lashes normal. Conjunctiva and sclera are not injected. Cornea within normal limits. Periorbital areas with no swelling, redness, or edema. ENT: Nares patent. No nasal discharge, no septal abnormalities noted. Tympanic membranes are normal and external auditory canals are clear. Oropharynx with no redness, swelling, or masses, exudates, or evidence of obstruction, uvula midline. Mucous membranes moist. Neck: Trachea midline, no thyromegaly or masses palpated, and no cervical lymphadenopathy. Supple, full range of motion without nuchal rigidity, or vertebral point tenderness. Chest/axilla: Normal chest wall appearance and motion. Nontender with no deformity. No lesions are appreciated. Cardiovascular: Regular rate and rhythm with a normal S1 and S2. No gallops, murmurs, or rubs. Normal PMI, no JVD. No pulse deficits. Respiratory: Lungs have equal breath sounds bilaterally, clear to auscultation and percussion. No rales, rhonchi or wheezes noted. No increased work of breathing, no retractions or nasal flaring. Abdomen/GI: Soft, with normal bowel sounds. No distension or tympany. No guarding or rebound. Today for left upper abdominal tenderness Back: No spinal tenderness. No costovertebral tenderness. Skin: Warm, dry with normal turgor. Normal color with no rashes, no lesions, and no evidence of cellulitis. MS/ Extremity: Pulses equal, no cyanosis. Neurovascular intact. Full, normal range of motion. Neuro: Awake and alert, GCS 15, oriented to person, place, time, and situation. Cranial nerves II-XII grossly intact. Motor strength 5/5 in all extremities. Sensory grossly intact. Psych: Awake, alert, with orientation to person, place and time. Behavior, mood, and affect are within normal limits Vital Signs: 00:15 BP 141 / 128 LA Supine (auto/reg); Pulse 92 LA; Resp 12; Temp 98.4(O); Pulse Ox 99% on ty R/A; Weight 104.33 kg; Height 5 ft. 2 in. ; Pain 9/10; 00:16 BP 160 / 102 LA Supine (auto/reg); ty 02:17 BP 155 / 109; Pulse 101; Resp 18; Pulse Ox 96% ; cp4 03:59 BP 177 / 97; Pulse 97; Resp 18; Temp 98.4; Pulse Ox 96% ; cp4 00:15 Body Mass Index 42.07 (104.33 kg, 157.48 cm) ty 00:15 Pain Scale: Adult ty Bromide Coma Score: 01:24 Eye Response: spontaneous(4). Motor Response: obeys commands(6). Verbal Response: sp4 oriented(5). Total: 15. MDM: 00:42 Patient medically screened. sp4 03:49 Differential diagnosis: diverticulitis, gastritis, Hepatitis, Irritable bowel syndrome. sp4 Data reviewed: vital signs, nurses notes, EMS record, old medical records, lab test result(s). Consideration of Admission/Observation Escalation of care including admission/observation considered. ED course: ProvidePatient has no signs of acute pancreatitis and no sign of hepatitis. Patient is stable for discharge home. Will provide Prescriptions for Phenergan and Bentyl. 03/14 02:55 Order name: CBC with Diff; Complete Time: 03:44 sp4 03/14 02:55 Order name: CMP; Complete Time: 03:44 sp4 03/14 02:55 Order name: Lipase; Complete Time: 03:44 sp4 03/14 00:52 Order name: PO challenge; Complete Time: 01:06 sp4 03/14 02:55 Order name: Saline Lock; Complete Time: 03:02 sp4 Administered Medications: 00:51 Not Given (Physician Discretion): ondansetron 4 mg IVP once; over 2 minutes cp4 00:52 Not Given (Physician Discretion): ns 0.9% 1000 ml IV at 1 bolus Per protocol; 1000 mL cp4 bolus 00:52 Not Given (Physician Discretion): morphineor iv 4 mg IVP once over 4 mins cp4 01:05 Drug: morphine IM 4 mg IM once Route: IM; Site: right deltoid; cp4 01:30 Follow up: Response: No adverse reaction; Pain is unchanged, physician notified cp4 01:05 Drug: Dicyclomine PO 20 mg PO once Route: PO; cp4 01:30 Follow up: Response: No adverse reaction cp4 01:05 Drug: Promethazine IM 25 mg IM once Route: IM; Site: left deltoid; cp4 01:30 Follow up: Response: Nausea unchanged cp4 01:05 Drug: Ketorolac IM 60 mg IM once Route: IM; Site: right deltoid; cp4 01:30 Follow up: Response: No adverse reaction; Pain is unchanged, physician notified cp4 01:05 Drug: MetoCLOPramide PO 10 mg PO once Route: PO; cp4 01:30 Follow up: Response: Nausea unchanged cp4 01:05 Drug: Ondansetron PO 4 mg PO once Route: PO; cp4 01:30 Follow up: Response: Nausea unchanged cp4 01:46 Drug: LORazepam PO 1 mg PO once Route: PO; cp4 02:15 Follow up: Response: No adverse reaction; Anxiety decreased cp4 03:10 Drug: morphine IVP or IV 4 mg IVP once over 4 mins Route: IVP; Infused Over: 4 mins; cp4 Site: left antecubital; 03:26 Follow up: Response: No adverse reaction; Pain is decreased cp4 03:10 Drug: NS 0.9% IV 1000 ml IV at 1 bolus Per protocol; 1000 mL bolus Route: IV; Rate: 1 cp4 bolus; Site: left antecubital; 04:02 Follow up: Response: No adverse reaction; IV Status: Completed infusion; IV Intake: cp4 1000ml 03:10 Drug: Ondansetron IVP 4 mg IVP once; over 2 minutes Route: IVP; Site: left antecubital; cp4 03:27 Follow up: Response: Nausea is decreased cp4 Disposition Summary: 03/14/24 03:48 Discharge Ordered Notes: Location: Home sp4 Problem: new sp4 Symptoms: have improved sp4 Condition: Stable sp4 Diagnosis - Upper abdominal pain, unspecified sp4 - Acute Gastroenteritis sp4 Followup: sp4 - With: Private Physician - When: 7 - 10 days - Reason: Recheck today's complaints Discharge Instructions: - Discharge Summary Sheet sp4 - Clear Liquid Diet, Adult, [id number] sp4 Forms: - Patient Portal Instructions sp4 Prescriptions: - promethazine 25 mg Oral tablet - take 1 tablet ORAL route every 8 hours As needed PRN nausea; 20 tablet; sp4 Refills: 0, Product Selection Permitted - dicyclomine 20 mg Oral tablet - take 1 tablet ORAL route 3 times per day PRN abdominal pain; 30 tablet; sp4 Refills: 0, Product Selection Permitted Signatures: Dispatcher [employer] EDClaudia Jackson PA-C PA-C sb4 Marty Singh MD MD sp4 Janina Montelongo cp4 Corrections: (The following items were deleted from the chart) 00:27 00:27 CBC+H.LAB.BRZ ordered. EDMS EDMS 00:27 00:27 COMPREHENSIVE METABOLIC PANEL+C.LAB.BRZ ordered. EDMS EDMS 00:27 00:27 LIPASE+C.LAB.BRZ ordered. EDMS EDMS 00:27 00:27 Abdomen Pelvis W Con+CT.RAD.BRZ ordered. EDMS EDMS 00:28 00:28 Urinalysis W/Microscopic+U.LAB.BRZ ordered. EDMS EDMS 01:05 00:26 IV Saline Lock ordered. sb4 cp4 01:06 00:26 Labs collected and sent ordered. sb4 cp4 02:55 02:55 CBC+H.LAB.BRZ ordered. EDMS EDMS 02:55 02:55 COMPREHENSIVE METABOLIC PANEL+C.LAB.BRZ ordered. EDMS EDMS 02:55 02:55 LIPASE+C.LAB.BRZ ordered. EDMS EDMS
--- NOTE | 2024-03-14 03:48 | ER ---
Nurse's Notes [facility] Name: Charity Hanks Age: 44 yrs Sex: Female : 1980 Arrival Date: 03/14/2024 Time: 00:14 Bed 19 Private MD: Diagnosis: Upper abdominal pain, unspecified;Acute Gastroenteritis Presentation: 03/14 00:15 Chief complaint: EMS states: patient was discharged last week with pancreatitis. Pain cp4 came back and is having nausea and vomiting. Coronavirus screen: Client denies travel out of the [place] in the last 14 days. At this time, the client does not indicate any symptoms associated with coronavirus-19. Ebola Screen: Patient negative for fever greater than or equal to 101.5 degrees Fahrenheit, and additional compatible Ebola Virus Disease symptoms Patient denies exposure to infectious person. Patient denies travel to an Ebola-affected area in the 21 days before illness onset. No symptoms or risks identified at this time. Initial Sepsis Screen: Does the patient meet any 2 criteria? No. Patient's initial sepsis screen is negative. Does the patient have a suspected source of infection? No. Patient's initial sepsis screen is negative. Risk Assessment: Do you want to hurt yourself or someone else? Patient reports no desire to harm self or others. Onset of symptoms was March 11, 2024. 00:15 Method Of Arrival: [facility] 4 00:15 Acuity: CARLOS 3 cp4 Triage Assessment: 00:17 General: Appears uncomfortable, Behavior is calm, cooperative, appropriate for age. cp4 Pain: Complains of pain in abdomen Pain does not radiate. Pain currently is 10 out of 10 on a pain scale. EENT: No signs and/or symptoms were reported regarding the EENT system. Neuro: Level of Consciousness is awake, alert, obeys commands, Oriented to person, place, time, situation. Cardiovascular: Patient's skin is warm and dry. Respiratory: Airway is patent Respiratory effort is even, unlabored. GI: Abdomen is obese, Bowel sounds present X 4 quads. Abd is soft and non tender X 4 quads. Reports lower abdominal pain, upper abdominal pain, diarrhea, nausea, vomiting. : No signs and/or symptoms were reported regarding the genitourinary system. Derm: No signs and/or symptoms reported regarding the dermatologic system. Musculoskeletal: No signs and/or symptoms reported regarding the musculoskeletal system. ALARM OPERATOR: 00:17 unknown cp4 Historical: - Allergies: 00:17 No Known Allergies; cp4 - PMHx: 00:17 Anxiety; depressive disorder; Myocardial infarction; PTSD; Pancreatitis; cp4 - PSHx: 00:17 cardiac stent; cp4 - Immunization history:: Adult Immunizations up to date. - Infectious Disease History:: Denies. - Social history:: Smoking status: Patient denies any tobacco usage or history of. - Family history:: not pertinent. Screenin:19 [facility] ED Fall Risk Assessment (Adult) History of falling in the last 3 months, cp4 including since admission No falls in past 3 months (0 pts) Confusion or Disorientation No (0 pts) Intoxicated or Sedated No (0 pts) Impaired Gait No (0 pts) Mobility Assist Device Used No (0 pt) Altered Elimination No (0 pt) Score/Fall Risk Level 0 - 2 = Low Risk Oriented to surroundings, Maintained a safe environment, Assessed \\T\\ reinforced patient's understanding of fall precautions, Hourly rounding (assess needs \\T\\ fall precautionary measures) done. Abuse screen:. Nutritional screening: No deficits noted. Tuberculosis screening: No symptoms or risk factors identified. Assessment: 00:19 Reassessment: No changes from previously documented assessment. cp4 01:17 Reassessment: Patient states "I don't know what he has against me but I was told to cp4 come back if I was in pain.". 01:38 Reassessment: Patient states she is still in pain and having nausea. Patient states "He cp4 needs to do blood work and find out what is wrong with me. If he doesn't want to do anything transfer me." Provider notified. 02:41 Reassessment: Patient states she is still in a lot of pain. Provider notified. cp4 Vital Signs: 00:15 BP 141 / 128 LA Supine (auto/reg); Pulse 92 LA; Resp 12; Temp 98.4(O); Pulse Ox 99% on ty R/A; Weight 104.33 kg; Height 5 ft. 2 in. ; Pain 9/10; 00:16 BP 160 / 102 LA Supine (auto/reg); ty 02:17 BP 155 / 109; Pulse 101; Resp 18; Pulse Ox 96% ; cp4 03:59 BP 177 / 97; Pulse 97; Resp 18; Temp 98.4; Pulse Ox 96% ; cp4 00:15 Body Mass Index 42.07 (104.33 kg, 157.48 cm) ty 00:15 Pain Scale: Adult ty Radha Coma Score: 01:24 Eye Response: spontaneous(4). Motor Response: obeys commands(6). Verbal Response: sp4 oriented(5). Total: 15. ED Course: 00:15 Patient arrived in ED. cp4 00:15 Janina Montelongo is Primary Nurse. cp4 00:16 Triage completed. cp4 00:17 Arm band placed on right wrist. Patient placed in an exam room, on a stretcher. cp4 00:19 Bed in low position. Call light in reach. Side rails up X 1. cp4 00:19 No provider procedures requiring assistance completed. cp4 00:28 Marty Singh MD is Attending Physician. vc1 00:32 Missed attempt(s): 24 gauge Bleeding controlled, band aid applied, catheter tip intact. ty 03:02 CBC with Diff Sent. cp4 03:02 CMP Sent. cp4 03:02 Lipase Sent. cp4 03:03 Initial lab(s) drawn, by me, sent to lab. Inserted saline lock: 22 gauge in left cp4 antecubital area, using aseptic technique. Blood collected. Flushed with 10 mL NS. 04:00 Provided Education on: clear liquid diet. cp4 04:00 intact, bleeding controlled, No redness/swelling at site. Pressure dressing applied. cp4 Administered Medications: 00:51 Not Given (Physician Discretion): ondansetron 4 mg IVP once; over 2 minutes cp4 00:52 Not Given (Physician Discretion): ns 0.9% 1000 ml IV at 1 bolus Per protocol; 1000 mL cp4 bolus 00:52 Not Given (Physician Discretion): morphineor iv 4 mg IVP once over 4 mins cp4 01:05 Drug: morphine IM 4 mg IM once Route: IM; Site: right deltoid; cp4 01:30 Follow up: Response: No adverse reaction; Pain is unchanged, physician notified cp4 01:05 Drug: Dicyclomine PO 20 mg PO once Route: PO; cp4 01:30 Follow up: Response: No adverse reaction cp4 01:05 Drug: Promethazine IM 25 mg IM once Route: IM; Site: left deltoid; cp4 01:30 Follow up: Response: Nausea unchanged cp4 01:05 Drug: Ketorolac IM 60 mg IM once Route: IM; Site: right deltoid; cp4 01:30 Follow up: Response: No adverse reaction; Pain is unchanged, physician notified cp4 01:05 Drug: MetoCLOPramide PO 10 mg PO once Route: PO; cp4 01:30 Follow up: Response: Nausea unchanged cp4 01:05 Drug: Ondansetron PO 4 mg PO once Route: PO; cp4 01:30 Follow up: Response: Nausea unchanged cp4 01:46 Drug: LORazepam PO 1 mg PO once Route: PO; cp4 02:15 Follow up: Response: No adverse reaction; Anxiety decreased cp4 03:10 Drug: morphine IVP or IV 4 mg IVP once over 4 mins Route: IVP; Infused Over: 4 mins; cp4 Site: left antecubital; 03:26 Follow up: Response: No adverse reaction; Pain is decreased cp4 03:10 Drug: NS 0.9% IV 1000 ml IV at 1 bolus Per protocol; 1000 mL bolus Route: IV; Rate: 1 cp4 bolus; Site: left antecubital; 04:02 Follow up: Response: No adverse reaction; IV Status: Completed infusion; IV Intake: cp4 1000ml 03:10 Drug: Ondansetron IVP 4 mg IVP once; over 2 minutes Route: IVP; Site: left antecubital; cp4 03:27 Follow up: Response: Nausea is decreased cp4 Medication: 00:19 VIS not applicable for this client. cp4 Intake: 04:02 IV: 1000ml; Total: 1000ml. cp4 Outcome: 03:48 Discharge ordered by . sp4 04:00 Discharged to home ambulatory, cp4 04:00 Condition: stable 04:00 Discharge instructions given to patient, Instructed on discharge instructions, follow up and referral plans. medication usage, Demonstrated understanding of instructions, follow-up care, medications, Prescriptions given X 2, 04:01 Patient left the ED. cp4 Signatures: Heide Jeffrey RN RN vc1 Marty Singh MD MD sp4 Janina Montelongo cp4 Ab Baltazar
[2024-03-14 04:11] VITALS: TEMP 98.4
[2024-03-14 04:27] VITALS: O2SAT 96
[2024-03-14 04:28] VITALS: BP 177/97
== END 2024-03-14 04:01 | disposition home or self-care (01) ==
LOC: ER 00:14
DX: K52.9 Noninfective gastroenteritis and colitis, unspecified (principal); Z95.818 Presence of other cardiac implants and grafts
CPT/HCPCS: 96361; 85025; 36415; 83690; 80053; 96375; 96372; 96374; 99284; J2550; Q0162; J2405; J7030

== ENCOUNTER 2024-05-10 20:11 | Emergency (ER) | payer OTHER ==
--- OUTSIDE RECORDS SUMMARY | 2024-05-10 20:24 | XMS REPORT | Continuity of Care Document ---
Author Name Unknown Address [address] [facility] [address] [place] [address] [facility] thconnect Address [address] [facility] [address] [place] [address] Support Name Relationship Address Phone RACHEL CASH Father Unknown Unavailable PHYSICIAN, NO Primary Care Physician Unknown Unav ailable MD MORA POLLOCK A Emergency Provider [address] [place] [address] JAN COX natural parent [address] [address] MD SHERIDAN MCMANUS Emergency Provider [facility], [place] [address] CHARITY ROCA Guarantor [address] [place] [address] MD RIDDHI [place] [address] MD AN IRIZARRY Emergency Provider [facility], [place] [address] MD CARLOS SOLANO A Primary Care Physician [address] [facility] 3 [place] [address] OTHER, ENTER NAME IN NOTES Primary Care Physician Unknown Unavailable MD Arelis Navarro Emergency Provider [address] [place] [address] MD SHAN BUSCH Attending Provider [address] [place] [address] PIYUSH JUAREZ parent [address] [place] [address] MD TAVARES MG JR, JR. Emergency Provider [address] [place] [address] 1 Personal Relationship Unknown Unavai lable Unavailable Personal Relationship Unknown Unavai lable Leyda Villa Mother Unknown Unavailable Rachel Cox Father [address] [place] [address] one else per patient, No Emergency Contact Unknown Unavailable Rachel Cox Father [address] [place] [address] Rachel Cox Father [address] [place] [address] PATIENT, NO ONE ELSE PER Personal Relationship Unknown Unavailable Care Team Providers Care Lube Man Name Role Phone OTHER, ENTER NAME IN NOTES Primary Care Physicia n Unavailable JOANNE MONTES Attending Clinician Unavailable WagnerSaleem Padilla Attending Clinician [phone] FARTUN GILLESPIE Attending Clinician Unavailable TAVARES MG JR Attending Clinician Unachristina Rojo NP, Leigh Attending Clinician [phone] GISELLE OSORIO Attending Clinician Unavailable LAB90 Attending Clinician Unavailable COSMO Attending Clinician Unavailable OLIVIA GARCIA Attending Clinician Unavailable Olivia Garcia MD Attending Clinician [phone] SHERIDAN MCMANUS Attending Clinician UnavailROBERTO Melgar Attending Clinician Unavailable Roberto Richards MD Attending Clinician [phone] SHAN BUSCH Attending Clinician Unavailable RIDDHI MYLES Attending Clinician UnavailAN Garcia Attending Clinician Unavailable NARAYAN NARVAEZ Attending Clinician Unavailable Narayan Narvaez DO Attending Clinician [phone] Saleem EDWARD Attending Clinician Unavailable WagnerSaleem Padilla Attending Clinician [phone] BRITTNI PADGETT Attending Clinician Unavailable Brittni Elam Attending Clinician JESÚS MONTERO Attending Clinician Unavailable Leeanne Wise NP Attending Clinician + [phone] Jesús Montero MD Attending Clinician + FELTON Attending Clinician Unavailable MELIDA LONGORIA Attending Clinician Unavailable Melida Longoria MD Attending Clinician + WIL MCQUEEN Attending Clinician Unavailable Wil Joseph Attending Clinician + DEE WANG Attending Clinician Unavaila angel Lamikunle INFORMATION SYSTEMS SECURITY OFFICER, Folusho F Attending Clinician +07-11 Doctor Unassigned, [place] Attending Clinician U CEM Lance Attending Clinician Unavailable Cem Choi MD Attending Clinician [phone] Ralph RAMIREZ, Shelley Ayala Attending Clinician + [phone] INFORMATION SYSTEMS SECURITY OFFICER, Bal Attending Clinician +[phone] BAL HASSAN Attending Clinician Unavailable Ebviral MEDINAP, Tremaine Attending Clinician [phone] TREMAINE BECERRA Attending Clinician Unavailable LEEANNE WISE Attending Clinician Unavailable MORA POLLOCK Attending Clinician Unavailable Claudia MEDINAP, Best Odonnell Attending Clinician [phone] BEST TAYLOR Attending Clinician Unavailable Marbella Rizo RN Attending Clinician Unavailab bailee VILLANUEVA, Abdias Attending Clinician +00 ABDIAS ROBERTSON Attending Clinician Unavailable Silver RAMIREZ, Kamryn Ayala Attending Clinician Unavail able Bushra Rios DO Attending Clinician + [phone] BUSHRA RIOS Attending Clinician Unavailab SINCERE morocho BA Attending Clinician Unavailable GUMARO ALVAREZ Attending Clinician Unavailable NEIL WILKINS Attending Clinician UnavailLISA Parker Attending Clinician Unavailable JW SOLORZANO Attending Clinician Unavailab SANIA Glover Attending Clinician Unavailable GINA MRATIN Attending Clinician Unavailable YIN RIOS Attending Clinician Unavailab ALBERTO Cason Attending Clinician Unavailable ANTHONY SCHNEIDER Attending Clinician UnavailDARCIE Gentile Attending Clinician Unavailable ARLETTE ROBERT Attending Clinician Unavailable GISELA RIOS Attending Clinician Unavail able HUGO COFFMAN Attending Clinician Unavailable OLIVIA GARCIA Admitting Clinician Unavailable ROBERTO RICHARDS Admitting Clinician Unavailable SHAN BUSCH Admitting Clinician Unavailable RIDDHI MYLES Admitting Clinician UnaNARAYAN Suárez Admitting Clinician Unavailable JESÚS MONTERO Admitting Clinician Unavailable Jesús Montero MD Admitting Clinician [phone] LA NENACHRISTELLE Admitting Clinician Unavailable MELIDA LONGORIA [...] Source AETNA MP [facility] 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 TRIMMER 94 ON 9 [id number] 2023 00:00:00 [facility] BCBS BLUE ADVANTAGE O [id number] 2020 00:00:00 Problems Condition Name Condition Details Condition Category Status Onset Date Resolution Date Last Treatment Date Treating Clinician Comments Source Generalize d abdominal pain Generalize d abdominal pain Disease Active 2023-07 00:00: 00 [facility] Coronary artery disease Coronary artery disease Disease Active 12-12 00:00: 00 Kellee Buckley - Externa khris Status post arterial stent Status post arterial stent Disease Active 12-12 00:00: 00 Kellee Buckley - Externa l MICAH (generaliz ed anxiety disorder) MICAH (generaliz ed anxiety disorder) Disease Active 12-02 00:00: 00 Kellee Buckley - Externa l Severe episode of recurrent major depressive disorder, 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, 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) Disease Active 12-02 00:00: 00 Kellee pinedo PTSD (post-trau matic stress disorder) PTSD (post-trau matic stress disorder) Disease Active 5-28 00:00: 00 Kellee pinedo Elevated brain natriureti c peptide (BNP) level Elevated brain natriureti c peptide (BNP) level Disease Active 2020-07 0-02 00:00: 00 [facility] Cigarette smoker Cigarette smoker Disease Active 2020-07 0-02 00:00: 00 [facility] Family history of early CAD Family history of early CAD Disease Active 2020-07 0-02 00:00: 00 [facility] Primary hypertensi on Primary hypertensi on Disease Active 2020-07 0-02 00:00: 00 [facility] Elevated brain natriureti c peptide (BNP) level Elevated brain natriureti c peptide (BNP) level Disease Active 2020-07 0-02 00:00: 00 [facility] Snores Snores Disease Active 2020-07 0-02 00:00: 00 [facility] Morbid obesity with body mass index of 40.0-49.9 Morbid obesity with body mass index of 40.0-49.9 Disease Active 2020-07 0-01 00:00: 00 [facility] Abdominal pain Problem [facility] Acute coronary syndrome without high troponin [facility] Adrenal mass Problem [facility] Adrenal nodule [facility] Encounter for counseling regarding advance directives Problem [facility] Allergic rhinitis Problem [facility] Angina pectoris Problem [facility] Anxiety and depression Problem [facility] Chest pain Problem [facility] Gastroente ritis Problem [facility] Malaise Problem [facility] Otitis externa of left ear Problem [facility] Cyst of ovary [facility] Post traumatic stress disorder (PTSD) Problem [facility] Tobacco abuse [facility] No known active problems No known active problems Disease [facility] Allergies, Adverse Reactions, Alerts Allergy Name Allergy Type Status Severity Reaction(s) Onset Date Inactive Date Treating Clinician Comments Source NO KNOWN ALLERGIE S Drug Class Active [facility] Social History Social Habit Start Date Stop Date Quantity Comments Source History of tobacco use [facility] Gender identity [facility] Sexual orientation Saleem alejandra Buckley - External Alcoholic beverage intake 2024-02-06 00:00:00 2024-02-06 00:00:00 Current drinker of alcohol (finding) Kellee Buckley - External History of Social function 2023-10-28 00:00:00 2023-10-28 00:00:00 Kellee Buckley - External Alcohol Comment 2023-10-28 00:00:00 2023-10-28 00:00:00 rarely Kellee Buckley - External Cigarettes smoked current (pack per day) - Reported 2023-10-28 00:00:00 2023-10-28 00:00:00 Kellee Leiva External Cigarette pack-years 2023-10-28 00:00:00 2023-10-28 00:00:00 Kellee Buckley - External Tobacco Comment 2023-02-15 00:00:00 2023-02-15 00:00:00 In the process of quitting. Now smokes 5 cigarettes/ day from 2 packs per day [facility] Tobacco use and exposure 2023-02-15 00:00:00 2023-02-15 00:00:00 User of smokeless tobacco [facility] Exposure to SARS-CoV-2 (event) 2021-12-30 00:00:00 2022-01-09 16:34:00 Unable to assess [facility] Education 2021-04-07 00:00:00 2021-04-07 00:00:00 13 [facility] Sex assigned at 1980 00:00:00 1980 00:00:00 Kellee Leiva External Smoking Status Start Date Stop Date Source Smokes tobacco daily 2023-02-15 00:00:00 [facility] Medications Ordered Medication Name Filled Medication Name Start Date Stop Date Current Medication? Ordering Clinician Indication Dosage Frequency Signature (SIG) Comments Components Source ondansetron (ZOFRAN (PF)) injection 4 mg 2023-07 01:30: 00 05-08 00:31 :00 No 4mg 4 mg, Slow IV Push, ONCE, 1 dose, On Sat05/07/24 at 2030[facility] mor[facility]INE (4 mg/mL) injection 4 mg 2023-07 01:30: 00 05-08 01:20 :00 No 4mg 4 mg, Slow IV Push, ONCE, 1 dose, On Sat05/07/24 at 2030, STAT [facility] ketorolac (TORADOL) injection 15 mg 2023-07 01:30: 00 05-08 00:30 :00 No 15mg 15 mg, Slow IV Push, ONCE, 1 dose, On Sat05/07/24 at 2029, [facility] phenazopyri dine 200 mg tablet 2023-07 00:00: 00 Yes [id number] 200mg Take 1 tablet by mouth in the morning and 1 tablet at noon and 1 tablet in the evening. [facility] Nitrofurant oin (Macrobid *) 100 Mg CAP Nitrofurant oin (Macrobid *) 100 Mg CAP 2023-07 18:32: 00 Yes 100 [facility] Ondansetron Hcl (Zofran *) 4 Mg Tablet Disint Ondansetron Hcl (Zofran *) 4 Mg Tablet Disint 2023-07 18:32: 00 Yes 1 [facility] cefTRIAXone (ROCEPHIN) 1,000 mg in NaCl 0.9% (NS) 100 mL MINI-BAG 2023-07 0 01:15: 00 04-09 01:24 :00 No 1000mg 1,000 mg, IV Piggyback, ONCE, 1 dose, On Sat04/08/24 at 2015, Administer over 30 Minutes, 100 mL, Reason for Anti-Infec tive: Documented Infection, Documented Infection Site: Urine, Duration of Therapy: Once (ED) [facility] fentanyl PF (SUBLIMAZE (PF)) injection 25 mcg 2023-07 00:15: 00 04-09 00:18 :00 No 25ug 25 mcg, Slow IV Push, ONCE, 1 dose, On Sat04/08/24 at 1915, STAT [facility] NaCl 0.9% (NS) bolus infusion 1,000 mL 2023-07 23:45: 00 04-09 01:24 :00 No 1000mL at 999 mL/hr, 1,000 mL, IV Infusion, ONCE, 1 dose, On Sat04/08/24 at 1845, [facility] ondansetron (ZOFRAN (PF)) injection 4 mg 2023-07 23:00: 00 04-08 22:57 :00 No 4mg 4 mg, Slow IV Push, ONCE, 1 dose, On Sat04/08/24 at 1800, [facility] ketorolac (TORADOL) injection 30 mg 2023-07 23:00: 00 04-08 22:57 :00 No 30mg 30 mg, Slow IV Push, ONCE, 1 dose, On Sat04/08/24 at 1800, [facility] sodium chloride (NS) injection 5 mL 2023-07 22:33: 00 Yes 5mL 5 mL, Intravenou s, PRN, Starting on Sat04/08/24 at 1733, Until Discontinu ed, Routine, IV line flushing [facility] ciprofloxac in HCl 500 mg tablet 2023-07 00:00: 00 Yes [id number] 500mg Take 1 tablet by mouth in the morning and 1 tablet in the evening. [facility] Methylpredn isolone Acetate (Depo-Medro l) 40 mg/ml - Physician Administere d (J1030) 02-05 13:21: 25 No [id number] 40mg 40 mg, Physician Administer ed, ONCE, 1 dose, On Esperanza 02/06/24 at 1145 Kellee pinedo hydrOXYzine Pamoate 50 MG oral Capsule 02-05 11:06: 49 Yes [id number] 50mg Q.5D Take 1 capsule (50 mg total) by mouth 2 times daily as needed for anxiety. Kellee pinedo Lorazepam (ATIVAN) 0.5 MG oral Tablet tablet 01-09 00:00: 00 Yes [id number] .5mg Q.5D take 1 tablet by mouth 2 times daily as needed for anxiety Kellee pinedo Aspirin (Aspirin Low Dose) 81 MG oral Tablet Delayed Response 01-05 00:00: 00 Yes [id number] 81mg QD Take 1 tablet (81 mg total) by mouth daily. Kellee pinedo Atorvastati n Calcium 40 MG oral Tablet 01-05 00:00: 00 Yes [id number] 40mg QD Take 1 tablet (40 mg total) by mouth daily. Kellee pinedo Suvorexant (Belsomra) 20 MG oral Tablet 01-05 00:00: 00 Yes [id number] 1{tbl} QD Take 1 tablet by mouth nightly. Kellee pinedo Clopidogrel Bisulfate (PLAVIX) 75 MG oral Tablet 01-05 00:00: 00 Yes [id number] 75mg QD Take 1 tablet (75 mg total) by mouth daily. Kellee pinedo hydrOXYzine Pamoate 50 MG oral Capsule 12-12 09:19: 23 Yes [id number] 50mg Q.5D Take 1 capsule (50 mg total) by mouth 2 times daily as needed for anxiety. Kellee pinedo Lorazepam (ATIVAN) 0.5 MG oral Tablet tablet 12-12 00:00: 00 Yes [id number] .5mg Q.5D Take 1 tablet (0.5 mg total) by mouth 2 times daily as needed for anxiety. Kellee ipnedo Aspirin Low Dose 81 MG oral Tablet Delayed Response 12-05 00:00: 00 Yes [id number] 81mg Take 1 tablet (81 mg total) by mouth daily. Kellee pinedo Atorvastati n Calcium 40 MG oral Tablet 12-05 00:00: 00 Yes [id number] 40mg Take 1 tablet (40 mg total) by mouth daily. Kellee pinedo Clopidogrel Bisulfate (PLAVIX) 75 MG oral Tablet 12-05 00:00: 00 Yes [id number] 75mg Take 1 tablet (75 mg total) by mouth daily. Kellee pinedo Mometasone Furo-Formot camelia Fum (Dulera) 200-5 MCG/ACT inhalation Aerosol 12-05 00:00: 00 Yes TWICE DAILY Kellee pinedo Ferrous Sulfate 325 (65 Fe) MG oral Tablet 12-04 00:00: 00 Yes [id number] 325mg QD Take 1 tablet (325 mg total) by mouth daily (with breakfast) . Kellee pinedo Vitamin D, Ergocalcife rol, 1.25 MG (93803 UT) oral Capsule 12-04 00:00: 00 Yes [id number] 67932G Q1W Take 1 capsule (50,000 units total) by mouth once a week. Kellee pinedo Mirtazapine 45 MG oral Tablet 12-02 10:49: 07 12-02 00:00 :00 No [id number] 45mg Take 1 tablet (45 mg total) by mouth nightly. Kellee pinedo hydrOXYzine Pamoate 50 MG oral Capsule 12-02 10:49: 04 Yes [id number] 50mg Q.5D Take 1 capsule (50 mg total) by mouth 2 times daily as needed for anxiety. Kellee pinedo Ascorbic Acid 500 MG oral Tablet 12-02 10:48: 55 12-02 00:00 :00 No 50mg Take 50 mg by mouth. Kellee pinedo Suvorexant (Belsomra) 20 MG oral Tablet 12-02 00:00: 00 Yes [id number] 1{tbl} Take 1 tablet by mouth nightly. Kellee pinedo Lorazepam 1 MG oral Tablet 12-02 00:00: 00 12-12 00:00 :00 No [id number] 1mg Q.5D Take 1 tablet (1 mg total) by mouth 2 times daily as needed for anxiety. Kellee pinedo Doxepin HCl 3 MG oral Tablet 11-27 00:00: 00 Yes [id number] 1{tbl} QD TAKE 1 TABLET BY MOUTH EVERY DAY AT NIGHT Kellee pinedo Aripiprazol e 5 MG oral Tablet 11-27 00:00: 00 Yes [id number] 5mg QD TAKE 1 TABLET (5 MG TOTAL) BY MOUTH DAILY. Kellee pinedo Mirtazapine 45 MG oral Tablet 10-28 13:20: 59 Yes [id number] 45mg Take 1 tablet (45 mg total) by mouth nightly. Kellee pinedo Ascorbic Acid 500 MG oral Tablet 10-28 13:20: 47 Yes 50mg Take 50 mg by mouth. Kellee pinedo hydrOXYzine Pamoate 50 MG oral Capsule 10-28 13:20: 47 10-28 00:00 :00 No [id number] 50mg Q.5D Take 1 capsule (50 mg total) by mouth every 4 to 6 hours as needed. Kellee pinedo Sertraline HCl 150 MG oral Capsule 10-28 13:20: 03 10-28 00:00 :00 No 150mg Take 150 mg by mouth daily. Kellee pinedo Doxepin HCl 3 MG oral Tablet 10-28 00:00: 00 Yes [id number] 1{tbl} Take 1 tablet by mouth nightly. Kellee pinedo Aripiprazol e 5 MG oral Tablet 10-28 00:00: 00 Yes [id number] 5mg Take 1 tablet (5 mg total) by mouth daily. Kellee pinedo Suvorexant 10 MG oral Tablet 10-28 00:00: 00 12-02 00:00 :00 No [id number] 1{tbl} Take 1 tablet by mouth nightly. Kellee Seybold - Externa l Sertraline HCl 50 MG oral Tablet 10-26 00:00: 00 Yes [id number] Kellee Seybold - Externa l HYDROcodone -acetaminop hen (NORCO) 10-325 mg tablet 1 tablet 10-10 06:15: 00 10-10 05:25 :00 No 1{tbl} 1 tablet, Oral, ONCE NOW, 1 dose, On Sat10/11/23 at 0115, [facility] iopamidol (ISOVUE 370-500 mL) injection 100 mL 10-10 05:00: 00 10-10 05:00 :00 No [id number] 100mL 100 mL, Intravenou s, ONCE, 1 dose, On Sat10/11/23 at 0000, Routine [facility] ketorolac (TORADOL) injection 30 mg 10-10 04:30: 00 10-10 03:29 :00 No 30mg 30 mg, Slow IV Push, ONCE, 1 dose, On Sat10/10/23 at 2330, Routine [facility] NaCl 0.9% (NS) IV infusion 1,000 mL 10-10 04:15: 00 10-10 05:18 :00 No 1000mL at 999 mL/hr, Intravenou s, ONCE, 1 dose, On Sat10/10/23 at 2315, Routine [facility] ondansetron (ZOFRAN (PF)) injection 4 mg 10-10 04:00: 00 10-10 03:54 :00 No 4mg 4 mg, Slow IV Push, ONCE, 1 dose, On Sat10/10/23 at 2300, [facility] morpHINE (4 mg/mL) injection 4 mg 10-10 04:00: 00 10-10 03:54 :00 No 4mg 4 mg, Slow IV Push, ONCE, 1 dose, On Sat10/10/23 at 2300, STAT [facility] traMADoL (ULTRAM) 50 mg tablet 10-10 00:00: 00 Yes [id number] 50mg Take 1 tablet by mouth every 6 (six) hours as needed for Pain (scale 7-10). Indication s: acute pain [facility] ondansetron (ZOFRAN) 4 mg tablet 10-10 00:00: 00 Yes [id number] 4mg Take 1 tablet by mouth every 8 (eight) hours as needed for Nausea and Vomiting (N/V). [facility] ketorolac 10 mg tablet 10-10 00:00: 00 Yes [id number] 10mg Take 1 tablet by mouth every 6 (six) hours as needed for Pain (scale 7-10). [facility] phenazopyri dine 200 mg tablet 10-10 00:00: 00 Yes [id number] 200mg Take 1 tablet by mouth in the morning and 1 tablet at noon and 1 tablet in the evening. [facility] Sertraline HCl 100 MG oral Tablet 10-09 00:00: 00 Yes [id number] 100mg Take 1 tablet (100 mg total) by mouth every morning. Kellee pinedo acetaminoph en (TYLENOL) tablet 975 mg 2022-07 04:15: 00 07-02 03:11 :00 No 975mg 975 mg, Oral, ONCE, 1 dose, On Sat07/01/23 at 2215, [facility] dicyclomine (BENTYL) tablet 20 mg 2022-07 03:15: 00 07-02 03:11 :00 No 20mg 20 mg, Oral, ONCE, 1 dose, On Sat07/01/23 at 2115, [facility] ketorolac (TORADOL) injection 30 mg 2022-07 03:15: 00 07-02 02:32 :00 No 30mg 30 mg, Slow IV Push, ONCE, 1 dose, On Sat07/01/23 at 2115, Routine [facility] ondansetron (ZOFRAN (PF)) injection 4 mg 2022-07 03:00: 00 07-02 02:03 :00 No 4mg 4 mg, Slow IV Push, ONCE, 1 dose, On Sat07/01/23 at 2100, [facility] NaCl 0.9% (NS) bolus infusion 1,000 mL 2022-07 03:00: 00 07-02 04:10 :00 No 1000mL at 999 mL/hr, 1,000 mL, IV Infusion, ONCE, 1 dose, On Sat07/01/23 at 2100, STAT [facility] dicyclomine 20 mg tablet 2022-07 00:00: 00 Yes [id number] 20mg Take 1 tablet by mouth 4 (four) times daily. [facility] ondansetron 4 mg disintegrat ing tablet 2022-07 00:00: 00 Yes [id number] 4mg Take 1 tablet by mouth every 4 (four) hours as needed for Nausea and Vomiting (N/V). [facility] Alprazolam (Alprazolam *) 1 Mg TAB Alprazolam (Alprazolam *) 1 Mg TAB 2022-07 12:08: 00 06-14 00:00 :00 No 1 [facility] Trazodone Hcl (Desyrel 100 Mg*) 100 Mg TAB Trazodone Hcl (Desyrel 100 Mg*) 100 Mg TAB 2022-07 12:07: 00 06-06 12:08 :00 No [facility] Aspirin (Aspirin Ec) 81 Mg Tablet Aspirin (Aspirin Ec) [address] 2022-07 11:55: 00 07-07 00:00 :00 No 81 [facility] Alprazolam (Xanax 2 Mg*) 2 Mg TAB Alprazolam (Xanax 2 Mg*) 2 Mg TAB 2022-07 11:09: 40 06-06 12:08 :00 No 2 [facility] Trazodone Hcl (Desyrel 300 Mg*) 300 Mg TAB Trazodone Hcl (Desyrel 300 Mg*) 300 Mg TAB 2022-07 11:09: 39 05-13 15:45 :00 No 300 [facility] Alprazolam 1 MG oral Tablet 2022-07 00:00: 00 12-12 00:00 :00 No [id number] 2mg Take 2 tablets (2 mg total) by mouth 2 times daily. Kellee pinedo Pantoprazol e * (Protonix Ec *) [address] Pantoprazol e * (Protonix Ec *) [address] 2022-07 15:44: 00 06-05 00:28 :00 No 20 [facility] Sucralfate (Carafate *) 1 Gm TAB Sucralfate (Carafate *) 1 Gm TAB 2022-07 15:44: 00 06-05 00:28 :00 No 1 [facility] Ciprofloxac in Hcl (Cipro *) 500 Mg TAB Ciprofloxac in Hcl (Cipro *) 500 Mg TAB 2022-07 15:44: 00 05-16 00:00 :00 No 500 [facility] Pantoprazol e Sodium 20 MG oral Tablet Delayed Response 2022-07 00:00: 00 12-02 00:00 :00 No Take by mouth. Kellee pinedo ketorolac (TORADOL) injection 15 mg 2022-07 01:00: 00 05-10 00:09 :00 No 15mg 15 mg, Slow IV Push, ONCE, 1 dose, On Sat05/09/23 at 2000, [facility] proCHLORper azine (COMPAZINE) injection 5 mg 2022-07 23:30: 00 05-09 22:48 :00 No 5mg 5 mg, Slow IV Push, ONCE, 1 dose, On Sat05/09/23 at 1830, [facility] diphenhydrA MINE (BENADRYL) injection 25 mg 2022-07 22:45: 00 05-09 22:48 :00 No 25mg 25 mg, Slow IV Push, ONCE, 1 dose, On Sat05/09/23 at 1745, STAT [facility] HYDROcodone -acetaminop hen (NORCO) 10-325 mg tablet 1 tablet 2022-07 02:00: 00 05-01 01:04 :00 No 1{tbl} 1 tablet, Oral, ONCE, 1 dose, On Sat04/30/23 at 2100, Routine [facility] iopamidol (ISOVUE 370-500 mL) injection 100 mL 2022-07 00:45: 00 05-01 00:45 :00 No [id number] 100mL 100 mL, Intravenou s, ONCE, 1 dose, On Sat04/30/23 at 1945, Routine [facility] NaCl 0.9% (NS) bolus infusion 1,000 mL 2022-07 00:00: 00 05-01 00:45 :00 No 1000mL at 999 mL/hr, 1,000 mL, IV Piggyback, ONCE, 1 dose, On Sat04/30/23 at 1900, STAT [facility] proCHLORper azine (COMPAZINE) injection 5 mg 2022-07 23:45: 00 04-30 23:09 :00 No 5mg 5 mg, Slow IV Push, ONCE, 1 dose, On Sat04/30/23 at 1845, [facility] diphenhydrA MINE (BENADRYL) injection 25 mg 2022-07 23:00: 00 04-30 23:09 :00 No 25mg 25 mg, Slow IV Push, ONCE, 1 dose, On Sat04/30/23 at 1800, STAT [facility] dicyclomine 20 mg tablet 2022-07 00:00: 00 07-01 00:00 :00 No [id number] 20mg Take 1 tablet by mouth 4 (four) times daily. [facility] acetaminoph en (TYLENOL) tablet 1,000 mg 2022-07 02:45: 00 04-17 02:43 :00 No 1000mg 1,000 mg, Oral, ONCE, 1 dose, On Tu04/16/23 at 2145[facility] (ZOFRAN (PF)) injection 4 mg 2022-07 0-03 03:15: 00 04-09 02:13 :00 No 4mg 4 mg, Slow IV Push, ONCE, 1 dose, On Sat04/08/23 at 2215[facility] (BENTYL[facility] 20 mg 2022-07 0- 03:15: 00 04-09 02:16 :00 No 20mg 20 mg, Oral, ONCE, 1 dose, On Sat04/08/23 at 2215, Routine [facility] ondansetron (ZOFRAN (PF)) injection 4 mg 2022-07 0 23:45: 00 04-08 23:16 :00 No 4mg 4 mg, Slow IV Push, ONCE, 1 dose, On Sat04/08/23 at 1845, [facility] morpHINE (2 mg/mL) injection 4 mg 2022-07 23:45: 00 04-08 23:45 :00 No 4mg 4 mg, Slow IV Push, ONCE, 1 dose, On Sat04/08/23 at 1845, STAT [facility] ondansetron 4 mg disintegrat ing tablet 2022-07 0 00:00: 00 07-01 00:00 :00 No [id number] 4mg Take 1 tablet by mouth every 8 (eight) hours as needed for Nausea and Vomiting (N/V). [facility] dicyclomine 20 mg tablet 2022-07 0-02 00:00: 00 04-30 00:00 :00 No [id number] 20mg Take 1 tablet by mouth 4 (four) times daily. [facility] acetaminoph en (TYLENOL) tablet 1,000 mg 903 04:30: 00 03-10 04:29 :00 No 1000mg 1,000 mg, Oral, ONCE, 1 dose, On 03/09/23 at 2330, [facility] iopamidol (ISOVUE 370-500 mL) injection 85 mL 03-10 04:30: 00 03-10 04:30 :00 No [id number] 85mL 85 mL, Intravenou s, ONCE, 1 dose, On 03/09/23 at 2330, Routine [facility] FENTanyl PF (SUBLIMAZE (PF)) injection 75 mcg 03-10 04:00: 00 03-10 02:58 :00 No 75ug 75 mcg, Slow IV Push, ONCE, 1 dose, On 03/09/23 at 2300, STAT [facility] NaCl 0.9% (NS) IV infusion 1,000 mL 03-10 03:00: 00 Yes 1000mL at 20 mL/hr, IV Infusion, CONTINUOUS , Starting on 03/09/23 at 2200, Until Discontinu ed, Routine [facility] ondansetron (ZOFRAN (PF)) injection 4 mg 03-10 02:00: 00 03-10 02:01 :00 No 4mg 4 mg, Slow IV Push, ONCE, 1 dose, On 03/09/23 at 2100, [facility] morpHINE (4 mg/mL) injection 4 mg 03-10 02:00: 00 03-10 02:01 :00 No 4mg 4 mg, Slow IV Push, ONCE, 1 dose, On 03/09/23 at 2100, STAT [facility] polyethylen e glycol 3350 (MIRALAX) 17 gram powder 03-09 00:00: 00 Yes [id number] 1{packe t} Take 1 Packet by mouth once daily as needed for Constipati on. [facility] Simethicone 125 mg 03-09 00:00: 00 Yes [id number] 125mg Take 1 capsule by mouth after meals and at bedtime as needed for Gas. [facility] iopamidol (ISOVUE 370-500 mL) injection 100 mL 03-02 06:15: 00 03-02 06:15 :00 No [id number] 100mL 100 mL, Intravenou s, ONCE, 1 dose, On 03/02/23 at 0115, Routine [facility] NaCl 0.9% (NS) IV infusion 1,000 mL 03-02 05:15: 00 Yes 1000mL at 999 mL/hr, Intravenou s, CONTINUOUS , Starting on 03/02/23 at 0015, Until Discontinu ed, Routine [facility] ketorolac (TORADOL) injection 30 mg 03-02 05:15: 00 03-02 04:20 :00 No 30mg 30 mg, Slow IV Push, ONCE, 1 dose, On 03/02/23 at 0015, Routine [facility] ondansetron (ZOFRAN (PF)) injection 4 mg 03-02 05:00: 00 03-02 05:24 :00 No 4mg 4 mg, Slow IV Push, ONCE, 1 dose, On 03/02/23 at 0000, [facility] morpHINE (4 mg/mL) injection 4 mg 03-02 05:00: 00 03-02 05:24 :00 No 4mg 4 mg, Slow IV Push, ONCE, 1 dose, On 03/02/23 at 0000, STAT [facility] ondansetron (ZOFRAN (PF)) injection 4 mg 03-02 04:15: 00 03-02 04:21 :00 No 4mg 4 mg, Slow IV Push, ONCE, 1 dose, On Sat03/01/23 at 2315, [facility] Ondansetron HCl 4 MG oral Tablet 03-02 00:00: 00 Yes [id number] 4mg [id number] 3D Take 1 tablet (4 mg total) by mouth every 8 hours as needed. [facility] dicyclomine 20 mg tablet 03-02 00:00: 00 04-30 00:00 :00 No [id number] 20mg Take 1 tablet by mouth every 6 (six) hours as needed for Abdominal pain. [facility] metoclopram tracy HCl (REGLAN) injection 10 mg 02-18 06:45: 00 02-18 06:43 :00 No 10mg 10 mg, Slow IV Push, ONCE, 1 dose, On Sat02/18/23 at 0145, [facility] morpHINE (4 mg/mL) injection 4 mg 02-18 05:30: 00 02-18 05:28 :00 No 4mg 4 mg, Slow IV Push, ONCE, 1 dose, On Sat02/18/23 at 0030, STAT [facility] ondansetron (ZOFRAN (PF)) injection 4 mg 02-18 05:30: 00 02-18 05:28 :00 No 4mg 4 mg, Slow IV Push, ONCE, 1 dose, On Sat02/18/23 at 0030, [facility] NaCl 0.9% (NS) bolus infusion 1,000 mL 02-18 05:30: 00 02-18 05:15 :00 No 1000mL at 999 mL/hr, 1,000 mL, IV Infusion, ONCE, 1 dose, On Sat02/18/23 at 0030, STAT [facility] proMETHazin e (PHENERGAN) 25 mg in NaCl 0.9% (NS) 50 mL IV piggyback 02-18 04:30: 00 02-18 04:28 :00 No 25mg 25 mg, IV Piggyback, ONCE, 1 dose, On Sat02/17/23 at 2330, [facility] proMETHazin e 25 mg tablet 02-18 00:00: 00 Yes [id number] 25mg Take 1 tablet by mouth every 6 (six) hours as needed for Nausea and Vomiting (N/V). [facility] escitalopra m oxalate (LEXAPRO) 5 mg tablet 02-17 16:23: 24 Yes 10mg Take 2 tablets by mouth at bedtime. [facility] topiramate (TOPAMAX) 200 mg tablet 02-17 16:23: 24 Yes 200mg Take 1 tablet by mouth every evening. [facility] bupropion HCl (WELLBUTRIN ORAL) 02-17 16:23: 24 Yes 150mg Take 150 mg by mouth every morning. [facility] OLANZapine (ZYPREXA) 15 mg tablet 02-17 16:23: 24 Yes 15mg Take 1 tablet by mouth every evening. [facility] ALPRAZOLAM ORAL 02-17 16:23: 24 Yes 2mg Take 2 mg by mouth in the morning and 2 mg in the evening. [facility] melatonin 10 mg Tab 02-17 16:23: 24 Yes 1{tbl} Take 1 tablet by mouth at bedtime. [facility] trazodone HCl (TRAZODONE ORAL) 02-17 16:23: 24 Yes 400mg Take 400 mg by mouth at bedtime. [facility] lactated ringers IV infusion 1,000 mL 02-17 02:15: 00 02-17 22:14 :00 No 1000mL at 100 mL/hr, 1,000 mL, IV Infusion, CONTINUOUS , Starting on 02/16/23 at 2115, Until 02/17/23 at 1714, Routine [facility] traZODone (DESYREL) tablet 400 mg 02-17 02:00: 00 Yes 400mg 400 mg, Oral, QHS, First dose on 02/16/23 at 2100, Until Discontinu ed [facility] melatonin (MELATIN) tablet 9 mg 02-17 02:00: 00 Yes 9mg 9 mg, Oral, QHS, First dose on 02/16/23 at 2100, Until Discontinu ed [facility] morpHINE (2 mg/mL) injection 2 mg 02-17 01:07: 50 03-01 01:06 :50 No 2mg 2 mg, Slow IV Push, Q4HPRN, Starting on 02/16/23 at 2006, Until [place] 02/28/23 at 2005, Routine, Pain (scale 7-10) [facility] OLANZapine (ZyPREXA) tablet 15 mg 02-16 22:00: 00 Yes 15mg 15 mg, Oral, QPM, First dose on 02/16/23 at 1700, Until Discontinu ed, Routine [facility] buPROPion XL (WELLBUTRIN XL) tablet 150 mg 02-16 14:00: 00 Yes 150mg 150 mg, Oral, DAILY, First dose on 02/16/23 at 0900, Until Discontinu ed [facility] enoxaparin (LOVENOX) injection 40 mg 02-16 14:00: 00 Yes 40mg 40 mg, Subcutaneo us, DAILY, First dose on 02/16/23 at 0900, Until Discontinu ed, Routine [facility] methocarbam oL (ROBAXIN) tablet 500 mg 02-16 06:04: 59 Yes 500mg 500 mg, Oral, Q6HPRN, Starting on 02/16/23 at 0104, Until Discontinu ed, Routine, Muscle Spasms [facility] ALPRAZolam (XANAX) tablet 2 mg 02-16 06:03: 54 Yes 2mg 2 mg, Oral, TIDPRN, Starting on 02/16/23 at 0103, Until Discontinu ed, Anxiety [facility] lactated ringers IV infusion 1,000 mL 02-16 03:15: 00 02-16 23:14 :00 No 1000mL at 100 mL/hr, 1,000 mL, IV Infusion, CONTINUOUS , Starting on Sat02/15/23 at 2215, Until 02/16/23 at 1814, Routine [facility] morpHINE (2 mg/mL) injection 2 mg 02-16 03:07: 02 02-17 01:08 :14 No 2mg 2 mg, Slow IV Push, Q4HPRN, Starting on Sat02/15/23 at 2207, Until 02/16/23 at 2008, Routine, Pain (scale 7-10) [facility] traMADoL (ULTRAM) tablet 50 mg 02-16 03:06: 59 02-18 03:05 :59 No 50mg 50 mg, Oral, Q8HPRN, Starting on Sat02/15/23 at 2206, Until Sat02/17/23 at 2205, Routine, Pain (scale 4-6) [facility] acetaminoph en (TYLENOL) tablet 1,000 mg 02-16 03:06: 50 Yes 1000mg 1,000 mg, Oral, Q6HPRN, Starting on Sat02/15/23 at 2206, Until Discontinu ed, Routine, Pain (scale 1-3), Temp > 38 C [facility] ALPRAZolam (XANAX) 1 mg tablet 02-16 01:09: 19 02-15 00:00 :00 No 1mg Take 1 tablet by mouth in the morning and 1 tablet in the evening. [facility] iopamidol (ISOVUE 370-500 mL) injection 80 mL 02-16 00:30: 00 02-16 00:30 :00 No [id number] 80mL 80 mL, Intravenou s, ONCE, 1 dose, On Sat02/15/23 at 1930, Routine [facility] lactated ringers IV infusion 1,000 mL 02-16 00:00: 00 02-16 03:07 :30 No [id number] 1000mL at 500 mL/hr, 1,000 mL, IV Infusion, CONTINUOUS , Starting on Sat02/15/23 at 1900, Until Sat02/15/23 at 2207, [facility] FENTanyl PF (SUBLIMAZE (PF)) injection 75 mcg 02-15 23:45: 00 02-15 23:13 :00 No [id number] 75ug 75 mcg, Slow IV Push, ONCE, 1 dose, On Sat02/15/23 at 1845, Routine [facility] dicyclomine (BENTYL) injection 20 mg 02-15 22:15: 00 02-15 21:46 :00 No [id number] 20mg 20 mg, Intramuscu lar, ONCE NOW, 1 dose, On Sat02/15/23 at 1715, Routine [facility] LORazepam (ATIVAN) injection 1 mg 02-15 21:45: 00 02-15 21:46 :00 No [id number] 1mg 1 mg, Slow IV Push, ONCE, 1 dose, On Sat02/15/23 at 1645, STAT [facility] ondansetron (ZOFRAN (PF)) injection 4 mg 02-15 21:45: 00 02-15 21:46 :00 No [id number] 4mg 4 mg, Slow IV Push, ONCE, 1 dose, On Sat02/15/23 at 1645, [facility] HYDROcodone -acetaminop hen (NORCO) 10-325 mg tablet 1 tablet 02-15 20:15: 00 02-15 19:52 :00 No [id number] 1{tbl} 1 tablet, Oral, ONCE, 1 dose, On Sat02/15/23 at 1515, Routine [facility] Melatonin 1 mg tablet 02-15 20:08: 23 02-15 00:00 :00 No 10mg Take 10 tablets by mouth every evening. [facility] trazodone HCl (DESYREL ORAL) 02-15 20:06: 33 02-15 00:00 :00 No 200mg Take 200 mg by mouth every evening. [facility] OLANZapine (ZYPREXA) 2.5 mg tablet 02-15 20:05: 48 02-15 00:00 :00 No 2.5mg Take 1 tablet by mouth in the morning and 1 tablet in the evening. [facility] hydrOXYzine (VISTARIL) 50 mg capsule 02-15 20:03: 04 02-15 00:00 :00 No 50mg Take 1 capsule by mouth every 4 (four) hours as needed for Itching. q 4-6 hours as needed [facility] dicyclomine (BENTYL) tablet 20 mg 02-15 19:30: 00 02-15 19:52 :00 No [id number] 20mg 20 mg, Oral, ONCE, 1 dose, On Sat02/15/23 at 1430, [facility] ibuprofen (IBU) tablet 800 mg 02-15 19:30: 00 02-15 19:52 :00 No [id number] 800mg 800 mg, Oral, ONCE, 1 dose, On Sat02/15/23 at 1430, [facility] losartan 50 mg tablet 02-15 13:44: 36 02-15 00:00 :00 No 50mg Take 1 tablet by mouth in the morning. [facility] [place]-3-DHA -EPA-Fish Oil (FISH OIL) 1,000 mg (120 mg-180 mg) Cap 02-15 13:44: 15 02-15 00:00 :00 No 1000mg Take 1,000 mg by mouth daily. [facility] methocarbam oL 750 mg tablet 02-15 13:43: 47 02-15 00:00 :00 No 750mg Take 750 mg by mouth 3 (three) times daily. [facility] FENTanyl PF (SUBLIMAZE (PF)) injection 50 mcg 01-10 00:45: 00 01-09 23:46 :00 No 50ug 50 mcg, Slow IV Push, ONCE, 1 dose, On Sat01/09/22 at 1945, Routine [facility] ketorolac (TORADOL) injection 30 mg 01-09 23:45: 00 01-09 22:48 :00 No 30mg 30 mg, Slow IV Push, ONCE, 1 dose, On Sat01/09/22 at 1845, Routine [facility] aspirin chewable tablet 243 mg 12-14 14:00: 00 Yes 243mg 243 mg, Oral, DAILY, First dose on Sat12/14/21 at 0900, Until Discontinu ed, Routine [facility] ketorolac (TORADOL) injection 15 mg 12-14 08:15: 00 12-14 07:11 :00 No 15mg 15 mg, Slow IV Push, ONCE, 1 dose, On [place] 12/14/21 at 0315, [facility] morpHINE (4 mg/mL) injection 4 mg 12-14 05:45: 00 12-14 04:52 :00 No 4mg 4 mg, Slow IV Push, ONCE, 1 dose, On [place] 12/14/21 at 0045, STAT [facility] cefTRIAXone (ROCEPHIN) 1,000 mg in NaCl 0.9% (NS) 50 mL MINI-BAG 12-14 05:45: 00 12-14 05:30 :00 No 1000mg 1,000 mg, IV Piggyback, ONCE, 1 dose, On [place] 12/14/21 at 0045, Administer over 30 Minutes, 50 mL
Reas on for Anti-Infec tive: Documented Infection< br>Documen kaushik Infection Site: Urine
D uration of Therapy: Other (see Comments) [facility] NaCl 0.9% (NS) bolus infusion 1,000 mL 12-14 05:45: 00 12-14 07:20 :00 No 1000mL at 999 mL/hr, 1,000 mL, IV Infusion, ONCE, 1 dose, On [place] 12/14/21 at 0045, [facility] ondansetron (ZOFRAN (PF)) injection 4 mg 12-14 04:45: 00 12-14 03:50 :00 No 4mg 4 mg, Slow IV Push, ONCE, 1 dose, On Sat12/13/21 at 2345, [facility] FENTanyl PF (SUBLIMAZE (PF)) injection 50 mcg 12-14 04:45: 00 12-14 03:50 :00 No 50ug 50 mcg, Slow IV Push, ONCE, 1 dose, On Sat12/13/21 at 2345, Routine [facility] ALPRAZolam (XANAX) 1 mg tablet 12-14 02:22: 13 Yes 1mg Take 1 mg by mouth 2 (two) times daily. [facility] naproxen 500 mg tablet 12-14 00:00: 00 02-15 00:00 :00 No [id number] 500mg Take 1 tablet by mouth 2 (two) times daily with meals. [facility] cefpodoxime 200 mg tablet 12-14 00:00: 00 12-22 04:59 :00 No [id number] 200mg Take 1 tablet by mouth 2 (two) times daily for 7 days. [facility] LORazepam (ATIVAN) injection 1 mg 11-12 05:00: 00 11-12 04:01 :00 No 1mg 1 mg, Slow IV Push, ONCE, 1 dose, On 11/12/21 at 0000, STAT [facility] ketorolac (TORADOL) injection 30 mg 11-12 03:30: 00 11-12 02:26 :00 No 30mg 30 mg, Slow IV Push, ONCE, 1 dose, On 11/11/21 at 2230, Routine
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 (ECOTRIN) tablet 325 mg 11-12 03:30: 00 11-12 02:25 :00 No 325mg 325 mg, Oral, ONCE, 1 dose, On 11/11/21 at 2230, STAT [facility] morpHINE (4 mg/mL) injection 4 mg 11-12 02:30: 00 11-12 01:40 :00 No 4mg 4 mg, Slow IV Push, ONCE, 1 dose, On 11/11/21 at 2130, STAT [facility] ondansetron (ZOFRAN (PF)) injection 4 mg 11-12 02:30: 00 11-12 01:40 :00 No 4mg 4 mg, Slow IV Push, ONCE, 1 dose, On 11/11/21 at 2130, [facility] NaCl 0.9% (NS) bolus infusion 1,000 mL 11-12 02:30: 00 11-12 02:30 :00 No 1000mL at 999 mL/hr, 1,000 mL, IV Infusion, ONCE, 1 dose, On 11/11/21 at 2130, [facility] hydrOXYzine 50 mg tablet 11-11 00:00: 00 04-08 00:00 :00 No [id number] 50mg Take 1 tablet by mouth every 8 (eight) hours as needed for Anxiety. [facility] ketorolac (TORADOL) injection 30 mg 09-12 05:45: 00 09-12 04:54 :00 No 30mg 30 mg, Slow IV Push, ONCE, 1 dose, On Sat09/11/21 at 2345, Routine
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
Reas on for Anti-Infec tive: Documented Infection< br>Documen kaushik Infection Site: Urine
D uration of Therapy: 7 days [facility] ondansetron (ZOFRAN (PF)) injection 4 mg 09-12 03:15: 00 09-12 02:39 :00 No 4mg 4 mg, Slow IV Push, ONCE, 1 dose, On Sat09/11/21 at 2115, [facility] morpHINE injection 4 mg 09-12 03:15: 00 09-12 02:39 :00 No 4mg 4 mg, Slow IV Push, ONCE, 1 dose, On Sat09/11/21 at 2115, STAT [facility] iopamidol (ISOVUE 370-500 mL) injection 120 mL 09-12 02:45: 00 09-12 03:00 :00 No [id number] 120mL 120 mL, Intravenou s, ONCE, 1 dose, On Sat09/11/21 at 2100, Routine [facility] sodium chloride (NS) injection 5 mL 09-12 01:33: 26 Yes 5mL 5 mL, Intravenou s, PRN, Starting on Sat09/11/21 at 1933, Until Discontinu ed, Routine, IV line flushing [facility] ibuprofen 600 mg tablet 09-11 00:00: 00 02-15 00:00 :00 No [id number] 600mg Take 1 tablet by mouth every 6 (six) hours as needed for Pain (scale 4-6). [facility] cefdinir 300 mg capsule 09-11 00:00: 00 09-19 04:59 :00 No [id number] 300mg Take 1 capsule by mouth 2 (two) times daily for 7 days. [facility] HYDROcodone -acetaminop hen (NORCO) 10-325 mg tablet 1 tablet 08-15 09:00: 00 08-15 07:59 :00 No 1{tbl} 1 tablet, Oral, ONCE, 1 dose, On Sat08/15/21 at 0300, Routine [facility] FENTanyl PF (SUBLIMAZE (PF)) injection 75 mcg 08-15 07:30: 00 08-15 06:42 :00 No 75ug 75 mcg, Intramuscu lar, ONCE, 1 dose, On Sat08/15/21 at 0130, Routine [facility] methocarbam oL (ROBAXIN) 500 mg tablet 08-15 00:00: 00 Yes [id number] 500mg Take 1 tablet by mouth every 6 (six) hours as needed for Pain (scale 7-10) (MUSCLE SPASM). [facility] traMADoL (ULTRAM) 50 mg tablet 08-15 00:00: 00 Yes [id number] 50mg Take 1 tablet by mouth every 6 (six) hours as needed for Pain (scale 7-10). Indication s: acute pain [facility] Nitrofurant oin&Nit. Macrocryst (MACROBID) 100 mg capsule 08-15 00:00: 00 02-15 00:00 :00 No [id number] 100mg Take 1 capsule by mouth 2 (two) times daily. [facility] morpHINE injection 4 mg 2020-07 08:30: 00 05-28 07:50 :00 No 4mg 4 mg, Slow IV Push, ONCE, 1 dose, On 05/28/21 at 0230, [facility] maalox:diph enhydrAMINE :lidocaine 2 % viscous 1:1:1 ([facility]) oral suspension 15 mL 2020-07 08:00: 00 05-28 07:04 :00 No 15mL 15 mL, Oral, ONCE, 1 dose, On 05/28/21 at 0200, Routine [facility] FENTanyl PF (SUBLIMAZE (PF)) injection 50 mcg 2020-07 07:00: 00 05-28 06:02 :00 No 50ug 50 mcg, Slow IV Push, ONCE, 1 dose, On 05/28/21 at 0100, STAT [facility] famotidine (PEPCID (PF)) injection 20 mg 2020-07 07:00: 00 05-28 06:01 :00 No 20mg 20 mg, Slow IV Push, ONCE, 1 dose, On 05/28/21 at 0100, [facility] famotidine 20 mg tablet 2020-07 00:00: 00 06-13 05:59 :00 No [id number] 20mg Take 1 tablet by mouth 2 (two) times daily for 15 days. [facility] escitalopra m oxalate (LEXAPRO) tablet 10 mg 2020-07 02:00: 00 Yes 10mg 10 mg, Oral, QHS, First dose on 04/08/21 at 2100, Until Discontinu ed, Routine [facility] aspirin 81 mg chewable tablet 2020-07 00:00: 00 05-10 04:59 :00 No [id number] 81mg Take 1 tablet by mouth daily for 30 days. [facility] traZODone (DESYREL) tablet 200 mg 2020-07 22:00: 00 Yes 200mg 200 mg, Oral, QPM, First dose on 04/08/21 at 1700, Until Discontinu ed [facility] topiramate (TOPAMAX) tablet 200 mg 2020-07 22:00: 00 Yes 200mg 200 mg, Oral, QPM, First dose on 04/08/21 at 1700, Until Discontinu ed, Routine
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 [facility] [place]-3-DHA -EPA-Fish Oil (FISH OIL) 1,000 mg (120 mg-180 mg) Cap 2020-07 17:45: 33 Yes 1000mg Take 1,000 mg by mouth daily. [facility] hydrOXYzine (VISTARIL) 50 mg capsule 2020-07 17:45: 33 Yes 50mg Take 50 mg by mouth every 4 (four) hours as needed for Itching. q 4-6 hours as needed [facility] losartan 50 mg tablet 2020-07 17:45: 33 Yes 50mg Take 50 mg by mouth daily. [facility] trazodone HCl (DESYREL ORAL) 2020-07 17:45: 33 Yes 200mg Take 200 mg by mouth every evening. [facility] escitalopra m oxalate (LEXAPRO) 5 mg tablet 2020-07 17:45: 33 Yes 10mg Take 10 mg by mouth at bedtime. [facility] Melatonin 1 mg tablet 2020-07 17:45: 33 Yes 10mg Take 10 mg by mouth every evening. [facility] topiramate (TOPAMAX) 200 mg tablet 2020-07 17:45: 33 Yes 200mg Take 200 mg by mouth every evening. [facility] bupropion HCl (WELLBUTRIN ORAL) 2020-07 17:45: 33 Yes 150mg Take 150 mg by mouth every morning. [facility] OLANZapine (ZYPREXA) 15 mg tablet 2020-07 17:45: 33 Yes 15mg Take 15 mg by mouth every evening. [facility] OLANZapine (ZYPREXA) 2.5 mg tablet 2020-07 17:45: 33 Yes 2.5mg Take 2.5 mg by mouth 2 (two) times daily. [facility] furosemide (LASIX) injection 20 mg 2020-07 14:30: 00 Yes 20mg 20 mg, Slow IV Push, Q12H, First dose on 04/08/21 at 0930, Until Discontinu ed, Routine [facility] losartan (COZAAR) tablet 50 mg 2020-07 14:00: 00 Yes 50mg 50 mg, Oral, DAILY, First dose on 04/08/21 at 0900, Until Discontinu ed, Routine [facility] buPROPion XL (WELLBUTRIN XL) tablet 150 mg 2020-07 14:00: 00 Yes 150mg 150 mg, Oral, DAILY, First dose on 04/08/21 at 0900, Until Discontinu ed [facility] aspirin chewable tablet 81 mg 2020-07 14:00: 00 Yes 81mg 81 mg, Oral, DAILY, First dose on [facility] 04/08/21 at 0900, Until Discontinu ed, Routine [facility] enoxaparin (LOVENOX) injection 40 mg 2020-07 14:00: 00 Yes 40mg 40 mg, Subcutaneo us, DAILY, First dose on [facility] 04/08/21 at 0900, Until Discontinu ed, Routine [facility] OLANZapine (ZyPREXA) tablet 2.5 mg 2020-07 13:00: 00 Yes 2.5mg 2.5 mg, Oral, BID, First dose on [facility] 04/08/21 at 0800, Until Discontinu ed, Routine [facility] methocarbam oL (ROBAXIN) tablet 750 mg 2020-07 13:00: 00 Yes 750mg 750 mg, Oral, TID, First dose on [facility] 04/08/21 at 0800, Until Discontinu ed, Routine [facility] LORazepam (ATIVAN) injection 0.5 mg 2020-07 04:07: 43 Yes .5mg 0.5 mg, Slow IV Push, PRN, 2 doses, Starting on Sat04/07/21 at 2307, Until Discontinu ed, Routine, Anxiety [facility] hydrOXYzine (ATARAX) tablet 50 mg 2020-07 02:51: 23 Yes 50mg 50 mg, Oral, Q4HPRN, Starting on Sat04/07/21 at 2151, Until Discontinu ed, Itching [facility] LORazepam (ATIVAN) tablet 0.5 mg 2020-07 02:05: 29 Yes .5mg 0.5 mg, Oral, PRN, 2 doses, Starting on Sat04/07/21 at 2105, Until Discontinu ed, Routine, Anxiety [facility] morpHINE injection 4 mg 2020-07 00:00: 00 04-07 22:58 :00 No 4mg 4 mg, Slow IV Push, ONCE, 1 dose, On Sat04/07/21 at 1900, STAT [facility] ondansetron (ZOFRAN (PF)) injection 4 mg 2020-07 00:00: 00 04-07 22:56 :00 No 4mg 4 mg, Slow IV Push, ONCE, 1 dose, On Sat04/07/21 at 1900, [facility] morpHINE injection 4 mg 2020-07 23:58: 03 04-08 23:57 :03 No 4mg 4 mg, Slow IV Push, Q4HPRN, Starting on Sat04/07/21 at 1858, Until 04/08/21 at 1857, Routine, Pain (scale 7-10) [facility] HYDROcodone -acetaminop hen (NORCO 5) 5-325 mg tablet 1 tablet 2020-07 23:58: 00 04-09 23:57 :00 No 1{tbl} 1 tablet, Oral, Q6HPRN, Starting on Sat04/07/21 at 1858, Until 04/09/21 at 1857, Routine, Pain (scale 4-6) [facility] acetaminoph en (TYLENOL) tablet 650 mg 2020-07 23:57: 57 Yes 650mg 650 mg, Oral, Q6HPRN, Starting on Sat04/07/21 at 1857, Until Discontinu ed, Routine, Pain (scale 1-3) [facility] [facility] aspirin tablet 325 mg 2020-07 23:00: 00 04-07 21:56 :00 No 325mg 325 mg, Oral, ONCE, 1 dose, On Sat04/07/21 at 1800, STAT [facility] nitroglycer in (NITROSTAT) sublingual tablet 0.4 mg 2020-07 21:51: 01 04-07 22:46 :00 No .4mg 0.4 mg, Sublingual , Q5MIN PRN, 3 doses, Starting on Sat04/07/21 at 1651, Until Discontinu ed, ROSELYN, Chest pain [facility] fluconazole (DIFLUCAN) tablet 150 mg 01-12 14:00: 00 Yes 150mg 150 mg, Oral, DAILY, First dose on [place] 01/12/21 at 0900, Until Discontinu ed, ROSELYN
Re ason for Anti-Infec tive: Empiric Therapy for Suspected Infection< br>Empiric Therapy Site: HEENT
D uration of therapy: 72 hours [facility] cefTRIAXone (ROCEPHIN) 1,000 mg in NaCl 0.9% (NS) 50 mL MINI-BAG 01-12 10:15: 00 01-12 09:49 :00 No 1000mg 1,000 mg, IV Piggyback, ONCE, 1 dose, [place] 01/12/21 at 0515, 50 mL
Reas on for Anti-Infec tive: Empiric Therapy for Suspected Infection< br>Empiric Therapy Site: Urine
D uration of therapy: 72 hours [facility] hydrOXYzine (ATARAX) tablet 25 mg 01-12 10:15: 00 01-12 09:18 :00 No 25mg 25 mg, Oral, ONCE, 1 dose, [place] 01/12/21 at 0515, [facility]N [facility] HYDROcodone -acetaminop hen (NORCO) 10-325 mg tablet 1 tablet 01-12 10:15: 00 01-12 09:18 :00 No 1{tbl} 1 tablet, Oral, ONCE, 1 dose, [place] 01/12/21 at 0515, Routine [facility] maalox:diph enhydrAMINE :lidocaine2 %viscous 1:1:1: suspension (COMPOUNDED ) 01-12 09:30: 00 01-12 08:25 :00 No 15mL 15 mL, Oral, ONCE, 1 dose, [place] 01/12/21 at 0430, Routine [facility] cephALEXin (KEFLEX) 500 mg capsule 01-12 00:00: 00 04-07 00:00 :00 No [id number] 500mg Take 1 capsule by mouth 3 (three) times daily. [facility] HYDROcodone -acetaminop hen (NORCO 5) 5-325 mg tablet 1 tablet 12-11 02:00: 00 12-11 01:29 :00 No 1{tbl} 1 tablet, Oral, ONCE, 1 dose, 12/10/20 at 2100, [facility] LORazepam (ATIVAN) injection 1 mg 12-11 00:30: 00 12-10 23:36 :00 No 1mg 1 mg, Slow IV Push, ONCE, 1 dose, 12/10/20 at 1930, STAT [facility] ketorolac (TORADOL) injection 30 mg 12-11 00:30: 00 12-10 23:36 :00 No 30mg 30 mg, Slow IV Push, ONCE, 1 dose, 12/10/20 at 1930, ROSELYN
Fa culty member approving Restricted medication : EMERGENCY ROOM, [facility] ondansetron (ZOFRAN (PF)) injection 4 mg 12-10 23:45: 00 12-10 22:46 :00 No 4mg 4 mg, Slow IV Push, ONCE, 1 dose, 12/10/20 at 1845, [facility] NaCl 0.9% (NS) bolus infusion 2,000 mL 12-10 22:45: 00 12-11 01:29 :00 No 2000mL at 999 mL/hr, 2,000 mL, IV Infusion, ONCE, 1 dose, 12/10/20 [facility] 1745[facility] 25 mg tablet 12-10 00:00: 00 04-07 00:00 :00 No [id number] 12.5mg Take 0.5 tablets by mouth every 6 (six) hours as needed for N/V unresponsi ve to Ondansetro n. [facility] morpHINE injection 4 mg 12-04 22:30: 00 12-04 21:37 :00 No 4mg 4 mg, Slow IV Push, ONCE, 1 dose, 12/04/20 at 1730, STAT [facility] losartan 50 mg tablet 2021-0 5-30 22:03: 53 Yes 50mg Take 50 mg by mouth daily. [facility] LORazepam (ATIVAN) tablet 1 mg 12-04 21:45: 00 12-04 20:44 :00 No 1mg 1 mg, Oral, ONCE, 1 dose, 12/04/20 at 1645, [facility]N [facility] ondansetron (ZOFRAN (PF)) injection 4 mg 12-04 21:15: 00 12-04 20:22 :00 No 4mg 4 mg, Slow IV Push, ONCE, 1 dose, 12/04/20 at 1615, [facility] morpHINE injection 4 mg 12-04 21:15: 00 12-04 20:21 :00 No 4mg 4 mg, Slow IV Push, ONCE, 1 dose, [place] 12/04/20 at 1615, STAT [facility] ALPRAZolam (XANAX) 2 mg tablet 11-04 04:24: 19 11-03 00:00 :00 No 2mg Take 2 mg by mouth at bedtime. [facility] LORazepam (ATIVAN) injection 1 mg 11-04 04:00: 00 11-04 02:57 :00 No 1mg 1 mg, Slow IV Push, ONCE, 1 dose, [facility] 11/03/20 at 2300, STAT [facility] LORazepam (ATIVAN) tablet 1 mg 11-04 04:00: 00 11-04 02:57 :00 No 1mg 1 mg, Oral, ONCE, 1 dose, [place] 11/03/20 at 2300, [facility] clonazePAM 0.5 mg tablet 11-01 00:00: 00 04-07 00:00 :00 No .5mg Take 0.5 mg by mouth. [facility] SERTraline 100 mg tablet 11-01 00:00: 00 04-07 00:00 :00 No 100mg Take 100 mg by mouth. [facility] busPIRone 10 mg tablet 4-13 00:00: 00 04-07 00:00 :00 No 10mg Take 10 mg by mouth. [facility] Ciprofloxac in/Dexameth asone (Ciprodex 0.3%-0.1% Otic*) 1 Ea SUSP Ciprofloxac in/Dexameth asone (Ciprodex 0.3%-0.1% Otic*) 1 Ea SUSP 15 13:53: 00 09-30 00:00 :00 No 3 [facility] ibuprofen (IBU) tablet 800 mg 09-17 16:55: 00 09-17 16:57 :00 No 800mg 800 mg, Oral, ONCE, 1 dose, 09/17/20 at 1100, [facility] benzonatate 100 mg capsule 09-17 00:00: 00 04-07 00:00 :00 No [id number] 100mg Take 1 capsule by mouth 3 (three) times daily as needed for Cough. [facility] amoxicillin 500 mg capsule 09-17 00:00: 00 09-28 04:59 :00 No [id number] 500mg Take 1 capsule by mouth 3 (three) times daily for 10 days. [facility] HYDROcodone -acetaminop hen (NORCO) 10-325 mg tablet 1 tablet 09-07 07:45: 00 09-07 07:09 :00 No 1{tbl} 1 tablet, Oral, ONCE, 1 dose, 09/07/20 at 0145, Routine [facility] ondansetron (ZOFRAN-ODT ) disintegrat ing tablet 4 mg 09-07 07:15: 00 09-07 07:15 :00 No 4mg 4 mg, Oral, ONCE, 1 dose, 09/07/20 at 0130, Routine [facility] ibuprofen 800 mg tablet 09-07 00:00: 00 Yes [id number] 800mg Take 1 tablet by mouth every 8 (eight) hours as needed for Pain (scale 4-6). [facility] ketorolac (TORADOL) injection 30 mg 08-28 10:45: 00 08-28 09:48 :00 No 30mg 30 mg, Slow IV Push, ONCE, 1 dose, 08/28/20 at 0445, Routine
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) oral suspension 15 mL 08-28 10:00: 00 08-28 09:07 :00 No 15mL 15 mL, Oral, ONCE, 1 dose, 08/28/20 at 0400, Routine [facility] iohexol (OMNIPAQUE 350 BULK-100 mL) injection 120 mL 08-28 09:30: 00 08-28 09:11 :00 No 120mL 120 mL, Intravenou s, ONCE, 1 dose, 08/28/20 at 0330, Routine [facility] dicyclomine 20 mg tablet 08-28 00:00: 00 04-07 00:00 :00 No [id number] 20mg Take 1 tablet by mouth every 6 (six) hours as needed for Abdominal pain. [facility] ondansetron (ZOFRAN) 4 mg tablet 08-28 00:00: 00 09-17 00:00 :00 No [id number] 4mg Take 1 tablet by mouth every 8 (eight) hours as needed for Nausea and Vomiting (N/V). [facility] FENTanyl PF (SUBLIMAZE (PF)) injection 25 mcg 08-14 19:00: 08-14 18:09 :00 No 25ug 25 mcg, Slow IV Push, ONCE, 1 dose, 08/14/20 at 1300, STAT [facility] ondansetron (ZOFRAN (PF)) injection 4 mg 08-14 19:00: 00 08-14 18:10 :00 No 4mg 4 mg, Slow IV Push, ONCE, 1 dose, 08/14/20 at 1300, ROSE[place]N [facility] ketorolac (TORADOL) injection 15 mg 08-14 19:00: 00 08-14 18:09 :00 No 15mg 15 mg, Slow IV Push, ONCE, 1 dose, 08/14/20 at 1300, ROSELYN
Fa culty member approving Restricted medication : BEST TAYLOR [facility] piperacilli n-tazobacta m (ZOSYN) 3.375 g in NaCl 0.9% (NS) 100 mL MINI-BAG 08-14 19:00: 08-14 18:38 :00 No 3.375g 3.375 g, IV Piggyback, ONCE, 1 dose, 08/14/20 at 1300, 100 mL
Reas on for Anti-Infec tive: Documented Infection< br>Documen kaushik Infection Site: Urine
D uration of Therapy: Other (see Comments) [facility] NaCl 0.9% (NS) bolus infusion 1,000 mL 08-14 19:00: 00 08-14 19:00 :00 No 1000mL at 999 mL/hr, 1,000 mL, IV Infusion, ONCE, 1 dose, 08/14/20 at 1300, STAT [facility] guaiFENesin 100 mg/5 mL solution 08-14 00:00: 00 04-07 00:00 :00 No [id number] 100mg Take 5 mL by mouth every 4 (four) hours. [facility] ondansetron 4 mg disintegrat ing tablet 08-14 00:00: 00 09-17 00:00 :00 No [id number] 4mg Take 1 tablet by mouth every 8 (eight) hours as needed for Nausea and Vomiting (N/V). [facility] ibuprofen 600 mg tablet 08-14 00:00: 09-17 00:00 :00 No [id number] 600mg Take 1 tablet by mouth every 6 (six) hours as needed for Pain (scale 4-6). [facility] amoxicillin -clavulanat e 875-125 mg per tablet 08-14 00:00: 00 08-25 05:59 :00 No [id number] 1{tbl} Take 1 tablet by mouth 2 (two) times daily for 10 days. [facility] fluconazole (DIFLUCAN) tablet 150 mg 08-11 15:00: 00 Yes 150mg 150 mg, Oral, DAILY, First dose on [place] 08/11/20 at 0900, Until Discontinu ed, ROSELYN
Re ason for Anti-Infec tive: Documented Infection< br>Documen kaushik Infection Site: Urine
D uration of Therapy: Other (see Comments) [facility] HYDROcodone -acetaminop hen (NORCO) 10-325 mg tablet 1 tablet 08-11 05:30: 00 08-11 05:08 :00 No 1{tbl} 1 tablet, Oral, ONCE NOW, 1 dose, Sat08/10/20 at 2330, Routine [facility] FENTanyl PF (SUBLIMAZE (PF)) injection 25 mcg 08-11 04:30: 00 08-11 03:19 :00 No 25ug 25 mcg, Slow IV Push, ONCE, 1 dose, Sat08/10/20 at 2230, STAT [facility] ondansetron (ZOFRAN (PF)) injection 4 mg 08-11 04:15: 00 08-11 03:19 :00 No 4mg 4 mg, Slow IV Push, ONCE, 1 dose, 08/10/20 at 2215, RO[facility]N [facility] NaCl 0.9% (NS) bolus infusion 1,000 mL 08-11 01:45: 00 08-11 03:45 :00 No 1000mL at 999 mL/hr, 1,000 mL, IV Infusion, ONCE, 1 dose, Sat08/10/20 at 1945, STAT [facility] ketorolac (TORADOL) injection 30 mg 08-11 01:45: 00 08-11 02:31 :00 No 30mg 30 mg, Slow IV Push, ONCE, 1 dose, Sat08/10/20 at 1945, ROSELYN
Fa culty member approving Restricted medication : BEST TAYLOR [facility] traMADoL (ULTRAM) 50 mg tablet 08-10 00:00: 00 09-17 00:00 :00 No [id number] 50mg Take 1 tablet by mouth every 6 (six) hours as needed for Pain (scale 7-10). Indication s: acute pain [facility] ibuprofen 800 mg tablet 08-07 00:00: 00 09-17 00:00 :00 No [id number] 800mg Take 1 tablet by mouth every 8 (eight) hours. [facility] amoxicillin 500 mg capsule 08-07 00:00: 00 09-17 00:00 :00 No [id number] 500mg Take 1 capsule by mouth 3 (three) times daily. [facility] traMADoL 50 mg tablet 08-07 00:00: 00 09-17 00:00 :00 No [id number] 50mg Take 1 tablet by mouth every 6 (six) hours as needed for Pain (scale 4-6). Indication s: acute pain [facility] LORazepam (ATIVAN) tablet 1 mg 2019-07 03:15: 00 07-01 02:21 :00 No 1mg 1 mg, Oral, ONCE, 1 dose, [facility] 06/30/20 at 2115, ROSELYN [facility] FENTanyl PF (SUBLIMAZE (PF)) injection 50 mcg 2019-07 02:30: 00 07-01 01:39 :00 No 50ug 50 mcg, Slow IV Push, ONCE, 1 dose, [place] 06/30/20 at 2030, Routine [facility] ondansetron (ZOFRAN-ODT ) disintegrat ing tablet 4 mg 2019-07 01:15: 07-01 00:52 :00 No 4mg 4 mg, Oral, ONCE, 1 dose, [place] 06/30/20 at 1915, Routine [facility] ketorolac (TORADOL) injection 30 mg 2019-07 01:15: 07-01 00:52 :00 No 30mg 30 mg, Slow IV Push, ONCE, 1 dose, [place] 06/30/20 at 191, ROSELYN
Fa culty member approving Restricted medication : ABDIAS ROBERTSON [facility] albuterol 90 mcg/actuati on inhaler 2019-07 00:00: 00 04-07 00:00 :00 No [id number] 2{puff} Inhale 2 Puffs every 4 (four) hours as needed for Wheezing or Shortness of Breath. [facility] hydrOXYzine 25 mg tablet 2019-07 00:00: 09-17 00:00 :00 No [id number] 25mg Take 1 tablet by mouth every 6 (six) hours as needed for Anxiety. [facility] naproxen sodium (ANAPROX DS) 550 mg tablet 2019-07 00:00: 00 04-07 00:00 :00 No [id number] 550mg Take 1 tablet by mouth 2 (two) times daily with meals. [facility] methylPREDN ISolone (MEDROL, BEBETO,) 4 mg tablets 2019-07 00:00: 00 09-17 00:00 :00 No [id number] Take by mouth SEE-INSTRU CTIONS. follow package directions [facility] methocarbam oL 500 mg tablet 2019-07 00:00: 00 07-04 05:59 :00 No [id number] 500mg Take 1 tablet by mouth 3 (three) times daily for 5 days. [facility] proMETHazin e (PHENERGAN) tablet 25 mg 2019-07 04:45: 00 06-13 03:37 :00 No 25mg 25 mg, Oral, ONCE, 1 dose, 06/12/20 at 2245, [facility] ondansetron (ZOFRAN (PF)) injection 4 mg 2019-07 03:00: 00 06-13 01:59 :00 No 4mg 4 mg, Slow IV Push, ONCE, 1 dose, 06/12/20 at 2100, [facility] ketorolac (TORADOL) injection 15 mg 2019-07 03:00: 00 06-13 01:58 :00 No 15mg 15 mg, Intramuscu lar, ONCE, 1 dose, 06/12/20 at 2100, [facility]
Fa culty member approving Restricted medication : LEEANNE WISE [facility] morpHINE injection 4 mg 2019-07 01:30: 00 06-13 00:41 :00 No 4mg 4 mg, Slow IV Push, ONCE, 1 dose, 06/12/20 at 1930, STAT [facility] ondansetron (ZOFRAN (PF)) injection 4 mg 2019-07 00:45: 00 06-13 00:41 :00 No 4mg 4 mg, Slow IV Push, ONCE, 1 dose, 06/12/20 at 1845, [facility] NaCl 0.9% (NS) bolus infusion 1,000 mL 2019-07 23:45: 00 06-13 03:54 :00 No 1000mL at 999 mL/hr, 1,000 mL, IV Infusion, ONCE, 1 dose, 06/12/20 at 1745, [facility] dicyclomine 20 mg tablet 2019-07 00:00: 00 04-07 00:00 :00 No [id number] 20mg Take 1 tablet by mouth 4 (four) times daily as needed for Abdominal pain. [facility] proMETHazin e 25 mg tablet 2019-07 00:00: 00 09-17 00:00 :00 No [id number] 25mg Take 1 tablet by mouth every 6 (six) hours as needed for Nausea and Vomiting (N/V). [facility] famotidine 20 mg tablet 2019-07 00:00: 00 06-27 05:59 :00 No [id number] 20mg Take 1 tablet by mouth at bedtime for 14 days. [facility] haloperidol lactate (HALDOL) injection 2.5 mg 2019-07 01:00: 00 05-16 23:51 :00 No 2.5mg 2.5 mg, Intravenou s, ONCE, 1 dose, 05/16/20 at 1900, STAT [facility] NaCl 0.9% (NS) bolus infusion 1,000 mL 2019-07 23:45: 00 05-17 00:54 :00 No 1000mL at 999 mL/hr, 1,000 mL, IV Infusion, ONCE, 1 dose, 05/16/20 at 1745, ROSE[place]N [facility] proMETHazin e (PHENERGAN) 25 mg suppository 2019-07 00:00: 00 Yes [id number] 25mg Insert 1 Suppositor y into rectum every 4 (four) hours as needed for Nausea and Vomiting (N/V). [facility] ondansetron (ZOFRAN (PF)) injection 4 mg 2019-07 07:30: 00 05-15 06:26 :00 No 4mg 4 mg, Slow IV Push, ONCE, 1 dose, 05/15/20 at 0130, ROSELYN [facility] iohexol (OMNIPAQUE 350 BULK-100 mL) injection 120 mL 2019-07 07:00: 00 05-15 06:52 :00 No 120mL 120 mL, Intravenou s, ONCE, 1 dose, 05/15/20 at 0100, Routine [facility] ondansetron (ZOFRAN (PF)) injection 4 mg 2019-07 06:30: 00 05-15 05:52 :00 No 4mg 4 mg, Slow IV Push, ONCE, 1 dose, 05/15/20 at 0030, RO[facility]N [facility] ALPRAZolam (XANAX) 2 mg tablet 2019-07 05:30: 59 Yes 2mg Take 2 mg by mouth at bedtime. [facility] zolpidem 5 mg tablet 12-20 00:00: 00 04-07 00:00 :00 No 5mg Take 5 mg by mouth. [facility] Immunizations Ordered Immunization Name Filled Immunization Name Date Status Comments Source Covid-19 Vaccine Moderna (Spikevax), Mrna-lnp, Zackery Protein, Pf Unknown Completed [facility] - External Covid-19 Vaccine Moderna (Spikevax), Mrna-lnp, Zackery Protein, Pf Unknown Completed [facility] - External Covid-19 Vaccine Moderna (Spikevax), Mrna-lnp, Zackery Protein, Pf Unknown Completed [facility] - External Covid-19 Vaccine Moderna (Spikevax), Mrna-lnp, Zackery Protein, Pf Unknown Completed [facility] - External Vital Signs Vital Name Observation Time Observation Value Comments S ource Heart rate 2024-05-08 02:05:00 91 /min [facility] Respiratory rate 2024-05-08 02:05:00 22 /min [facility] Oxygen saturation in Arterial blood by Pulse oximetry 2024-05-08 02:05:00 95 /min [facility] Systolic blood pressure 2024-05-08 02:00:00 140 mm[Hg] [facility] Diastolic blood pressure 2024-05-08 02:00:00 86 mm[Hg] [facility] Body temperature 2024-05-07 23:46:00 36.78 Latanya [facility] Body height 2024-05-07 23:46:00 157.5 cm [facility] Body weight 2024-05-07 23:46:00 107.729 kg [facility] BMI 2024-05-07 23:46:00 43.44 kg/m2 [facility] Height 2024-04-10 16:28:[address] [facility] Weight 2024-04-10 16:28:[address] [facility] BMI (Body Mass Index) 2024-04-10 16:28:00 42.1 kg/m2 [facility] Systolic blood pressure 2024-04-09 01:30:00 134 mm[Hg] [facility] Diastolic blood pressure 2024-04-09 01:30:00 64 mm[Hg] [facility] Heart rate 2024-04-09 01:30:00 102 /min [facility] Body temperature 2024-04-09 01:30:00 36.61 Latanya [facility] Respiratory rate 2024-04-09 01:30:00 17 /min [facility] Oxygen saturation in Arterial blood by Pulse oximetry 2024-04-09 01:30:00 96 /min [facility] Body height 2024-04-08 22:31:00 157.5 cm [facility] Body weight 2024-04-08 22:31:00 104.327 kg [facility] BMI 2024-04-08 22:31:00 42.07 kg/m2 [facility] Body temperature 2023-12-13 14:10:00 36.72 Latanya [facility] - External Respiratory rate 2023-12-13 14:10:00 15 /min [facility] Flores[facility] - External Body height 2023-12-13 14:10:00 157.5 cm [facility] Buckley - External Body weight 2023-12-13 14:10:00 105.688 kg [facility] ybold - External BMI 2023-12-13 14:10:00 42.62 kg/m2 [facility] Ariasybold - External Systolic blood pressure 2023-12-13 14:10:00 118 mm[Hg] [facility] Ariasy[facility] - External Diastolic blood pressure 2023-12-13 14:10:00 74 mm[Hg] [facility] Ariasy[facility] - External Heart rate 2023-12-13 14:10:00 97 /min [facility] Ariasybold - External Systolic blood pressure 2023-12-03 15:44:00 [...] blood pressure 2023-10-29 18:12:00 84 mm[Hg] [facility] Seybold - External Heart rate 2023-10-29 18:12:00 82 /min [facility] Sey[facility] - External Body temperature 2023-10-29 18:12:00 36.72 Latanya [facility] Sey[facility] - External Respiratory rate 2023-10-29 18:12:00 18 /min [facility] Seybold - External Body height 2023-10-29 18:12:00 157.5 cm [facility] Seybold - External Body weight 2023-10-29 18:12:00 106.142 kg [facility] Seybold - External BMI 2023-10-29 18:12:00 42.80 kg/m2 [facility] Seybold - External Oxygen saturation in Arterial blood by Pulse oximetry 2023-10-29 18:12:00 97 /min [facility] Seybold - External Systolic blood pressure 2023-10-11 05:00:00 126 mm[Hg] [facility] Diastolic blood pressure 2023-10-11 05:00:00 87 mm[Hg] [facility] Heart rate 2023-10-11 05:00:00 94 /min [facility] Respiratory rate 2023-10-11 05:00:00 22 /min [facility] Oxygen saturation in Arterial blood by Pulse oximetry 2023-10-11 05:00:00 98 /min [facility] Body temperature 2023-10-11 02:28:00 37.22 Latanya [facility] Body height 2023-10-11 02:28:00 157.5 cm [facility] Body weight 2023-10-11 02:28:00 99.791 kg [facility] BMI 2023-10-11 02:28:00 40.24 kg/m2 [facility] Systolic blood pressure 2023-07-02 04:10:00 147 mm[Hg] [facility] Diastolic blood pressure 2023-07-02 04:10:00 89 mm[Hg] [facility] Heart rate 2023-07-02 04:10:00 73 /min [facility] Respiratory rate 2023-07-02 04:10:00 19 /min [facility] Oxygen saturation in Arterial blood by Pulse oximetry 2023-07-02 04:10:00 98 /min [facility] Body temperature 2023-07-02 01:47:00 36.78 Latanya [facility] Body height 2023-07-02 01:47:00 160 cm [facility] Body weight 2023-07-02 01:47:00 97.659 kg [facility] BMI 2023-07-02 01:47:00 38.14 kg/m2 [facility] Systolic blood pressure 2023-05-10 01:00:00 133 mm[Hg] [facility] Diastolic blood pressure 2023-05-10 01:00:00 81 mm[Hg] [facility] Heart rate 2023-05-10 01:00:00 64 /min [facility] Respiratory rate 2023-05-10 01:00:00 21 /min [facility] Oxygen saturation in Arterial blood by Pulse oximetry 2023-05-10 01:00:00 96 /min [facility] Body temperature 2023-05-09 22:43:00 36.67 Latanya [facility] Body height 2023-05-09 22:43:00 157.5 cm [facility] Body weight 2023-05-09 22:43:00 99.791 kg [facility] BMI 2023-05-09 22:43:00 40.24 kg/m2 [facility] Systolic blood pressure 2023-05-01 01:00:00 107 mm[Hg] [facility] Diastolic blood pressure 2023-05-01 01:00:00 80 mm[Hg] [facility] Heart rate 2023-05-01 01:00:00 80 /min [facility] Body temperature 2023-05-01 01:00:00 37.06 Latanya [facility] Respiratory rate 2023-05-01 01:00:00 16 /min [facility] Oxygen saturation in Arterial blood by Pulse oximetry 2023-05-01 01:00:00 98 /min [facility] Body height 2023-04-30 22:16:00 157.5 cm [facility] Body weight 2023-04-30 22:16:00 95.255 kg [facility] BMI 2023-04-30 22:16:00 38.41 kg/m2 [facility] Systolic blood pressure 2023-04-17 02:00:00 147 mm[Hg] [facility] Diastolic blood pressure 2023-04-17 02:00:00 83 mm[Hg] [facility] Heart rate 2023-04-17 02:00:00 90 /min [facility] Respiratory rate 2023-04-17 02:00:00 18 /min [facility] Oxygen saturation in Arterial blood by Pulse oximetry 2023-04-17 02:00:00 96 /min [facility] Body temperature 2023-04-17 01:33:00 36.78 Latanya [facility] Body height 2023-04-17 01:33:00 157.5 cm [facility] Body weight 2023-04-17 01:33:00 99.791 kg [facility] BMI 2023-04-17 01:33:00 40.24 kg/m2 [facility] Systolic blood pressure 2023-04-09 01:04:48 135 mm[Hg] [facility] Diastolic blood pressure 2023-04-09 01:04:48 84 mm[Hg] [facility] Heart rate 2023-04-09 01:04:48 67 /min [facility] Respiratory rate 2023-04-09 01:04:48 16 /min [facility] Oxygen saturation in Arterial blood by Pulse oximetry 2023-04-09 01:04:48 99 /min [facility] Body temperature 2023-04-08 22:16:00 36.67 Latanya [facility] Body height 2023-04-08 22:16:00 157.5 cm [facility] Body weight 2023-04-08 22:16:00 99.791 kg [facility] BMI 2023-04-08 22:16:00 40.24 kg/m2 [facility] Systolic blood pressure 2023-03-10 05:00:00 156 mm[Hg] [facility] Diastolic blood pressure 2023-03-10 05:00:00 94 mm[Hg] [facility] Heart rate 2023-03-10 05:00:00 75 /min [facility] Respiratory rate 2023-03-10 05:00:00 21 /min [facility] Oxygen saturation in Arterial blood by Pulse oximetry 2023-03-10 05:00:00 97 /min [facility] Body temperature 2023-03-10 01:20:00 36.72 Latanya [facility] Body height 2023-03-10 01:20:00 157.5 cm [facility] Body weight 2023-03-10 01:20:00 100.381 kg [facility] BMI 2023-03-10 01:20:00 40.48 kg/m2 [facility] [facility] Systolic blood pressure 2023-03-02 06:00:00 126 mm[Hg] [facility] Diastolic blood pressure 2023-03-02 06:00:00 79 mm[Hg] [facility] Heart rate 2023-03-02 06:00:00 69 /min [facility] Respiratory rate 2023-03-02 06:00:00 23 /min [facility] Oxygen saturation in Arterial blood by Pulse oximetry 2023-03-02 06:00:00 94 /min [facility] Body temperature 2023-03-02 00:34:00 37.28 Latanya [facility] Body height 2023-03-02 00:34:00 157.5 cm [facility] Body weight 2023-03-02 00:34:00 99.791 kg [facility] BMI 2023-03-02 00:34:00 40.24 kg/m2 [facility] Systolic blood pressure 2023-02-18 06:46:00 126 mm[Hg] [facility] Diastolic blood pressure 2023-02-18 06:46:00 77 mm[Hg] [facility] Heart rate 2023-02-18 06:46:00 79 /min [facility] Respiratory rate 2023-02-18 06:46:00 16 /min [facility] Oxygen saturation in Arterial blood by Pulse oximetry 2023-02-18 06:46:00 95 /min [facility] Body temperature 2023-02-18 03:55:00 36.72 Latanya [facility] Body height 2023-02-18 03:55:00 157.5 cm [facility] Body weight 2023-02-18 03:55:00 102.331 kg [facility] BMI 2023-02-18 03:55:00 41.26 kg/m2 [facility] Systolic blood pressure 2023-02-17 16:20:00 113 mm[Hg] [facility] Diastolic blood pressure 2023-02-17 16:20:00 65 mm[Hg] [facility] Heart rate 2023-02-17 16:20:00 65 /min [facility] Body temperature 2023-02-17 16:20:00 36.83 Latanya [facility] Respiratory rate 2023-02-17 16:20:00 16 /min [facility] Oxygen saturation in Arterial blood by Pulse oximetry 2023-02-17 16:20:00 97 /min [facility] Body weight 2023-02-17 08:50:00 99.973 kg [facility] BMI 2023-02-17 08:50:00 40.31 kg/m2 [facility] Body height 2023-02-16 01:19:00 157.5 cm [facility] Systolic blood pressure 2022-01-10 01:24:00 120 mm[Hg] [facility] Diastolic blood pressure 2022-01-10 01:24:00 76 mm[Hg] [facility] Heart rate 2022-01-10 01:24:00 73 /min [facility] Respiratory rate 2022-01-10 01:24:00 16 /min [facility] Oxygen saturation in Arterial blood by Pulse oximetry 2022-01-10 01:24:00 96 /min [facility] Body weight 2022-01-09 21:39:00 104.327 kg [facility] BMI 2022-01-09 21:39:00 42.07 kg/m2 [facility] Systolic blood pressure 2021-12-14 07:22:00 121 mm[Hg] [facility] Diastolic blood pressure 2021-12-14 07:22:00 86 mm[Hg] [facility] Heart rate 2021-12-14 07:22:00 80 /min [facility] Respiratory rate 2021-12-14 07:22:00 17 /min [facility] Oxygen saturation in Arterial blood by Pulse oximetry 2021-12-14 07:22:00 96 /min [facility] Body temperature 2021-12-14 03:06:00 36.72 Latanya [facility] Body height 2021-12-14 03:06:00 157.5 cm [facility] Body weight 2021-12-14 03:06:00 95.255 kg [facility] BMI 2021-12-14 03:06:00 38.41 kg/m2 [facility] Systolic blood pressure 2021-11-12 04:15:00 112 mm[Hg] [facility] Diastolic blood pressure 2021-11-12 04:15:00 75 mm[Hg] [facility] Heart rate 2021-11-12 04:15:00 92 /min [facility] Body temperature 2021-11-12 04:15:00 36.44 Latanya [facility] Respiratory rate 2021-11-12 04:15:00 18 /min [facility] Oxygen saturation in Arterial blood by Pulse oximetry 2021-11-12 04:15:00 98 /min [facility] Body height 2021-11-12 00:41:00 157.5 cm [facility] Body weight 2021-11-12 00:41:00 95.255 kg [facility] BMI 2021-11-12 00:41:00 38.41 kg/m2 [facility] Systolic blood pressure 2021-09-12 01:31:00 142 mm[Hg] [facility] Diastolic blood pressure 2021-09-12 01:31:00 80 mm[Hg] [facility] Heart rate 2021-09-12 01:31:00 78 /min [facility] Body temperature 2021-09-12 01:31:00 36.72 Latanya [facility] Respiratory rate 2021-09-12 01:31:00 18 /min [facility] Body height 2021-09-12 01:31:00 157.5 cm [facility] Body weight 2021-09-12 01:31:00 99.791 kg [facility] BMI 2021-09-12 01:31:00 40.24 kg/m2 [facility] Oxygen saturation in Arterial blood by Pulse oximetry 2021-09-12 01:31:00 97 /min [facility] Systolic blood pressure 2021-08-15 08:20:00 120 mm[Hg] [facility] Diastolic blood pressure 2021-08-15 08:20:00 74 mm[Hg] [facility] Heart rate 2021-08-15 08:20:00 69 /min [facility] Respiratory rate 2021-08-15 08:20:00 20 /min [facility] Oxygen saturation in Arterial blood by Pulse oximetry 2021-08-15 08:20:00 96 /min [facility] Body temperature 2021-08-15 05:34:00 36.22 Latanya [facility] Body height 2021-08-15 05:34:00 157.5 cm [facility] Body weight 2021-08-15 05:34:00 99.791 kg [facility] BMI 2021-08-15 05:34:00 40.24 kg/m2 [facility] Systolic blood pressure 2021-05-28 10:00:00 122 mm[Hg] [facility] Diastolic blood pressure 2021-05-28 10:00:00 78 mm[Hg] [facility] Heart rate 2021-05-28 10:00:00 75 /min [facility] Respiratory rate 2021-05-28 10:00:00 20 /min [facility] Oxygen saturation in Arterial blood by Pulse oximetry 2021-05-28 10:00:00 99 /min [facility] Body temperature 2021-05-28 05:21:00 36.11 Latanya [facility] Body height 2021-05-28 05:21:00 157.5 cm [facility] Body weight 2021-05-28 05:21:00 99.791 kg [facility] BMI 2021-05-28 05:21:00 40.24 kg/m2 [facility] Systolic blood pressure 2021-04-08 21:55:00 110 mm[Hg] [facility] Diastolic blood pressure 2021-04-08 21:55:00 80 mm[Hg] [facility] Heart rate 2021-04-08 21:55:00 70 /min [facility] Body temperature 2021-04-08 21:55:00 36.28 Latanya [facility] Respiratory rate 2021-04-08 21:55:00 16 /min [facility] Oxygen saturation in Arterial blood by Pulse oximetry 2021-04-08 21:55:00 94 /min [facility] Body height 2021-04-08 03:00:00 157.5 cm [facility] Body weight 2021-04-08 03:00:00 105.688 kg [facility] BMI 2021-04-08 03:00:00 42.62 kg/m2 [facility] Systolic blood pressure 2021-01-12 09:00:00 147 mm[Hg] [facility] Diastolic blood pressure 2021-01-12 09:00:00 71 mm[Hg] [facility] Heart rate 2021-01-12 09:00:00 103 /min [facility] Respiratory rate 2021-01-12 09:00:00 18 /min [facility] Oxygen saturation in Arterial blood by Pulse oximetry 2021-01-12 09:00:00 97 /min [facility] Body temperature 2021-01-12 07:48:00 37.06 Latanya [facility] Body height 2021-01-12 07:48:00 157.5 cm [facility] Body weight 2021-01-12 07:48:00 102.513 kg [facility] BMI 2021-01-12 07:48:00 41.34 kg/m2 [facility] Systolic blood pressure 2020-12-11 01:30:00 136 mm[Hg] [facility] Diastolic blood pressure 2020-12-11 01:30:00 88 mm[Hg] [facility] Heart rate 2020-12-11 01:30:00 99 /min [facility] Respiratory rate 2020-12-11 01:30:00 28 /min [facility] Oxygen saturation in Arterial blood by Pulse oximetry 2020-12-11 01:30:00 97 /min [facility] Body temperature 2020-12-10 22:11:00 36.78 Latanya [facility] Body weight 2020-12-10 22:11:00 99.791 kg [facility] BMI 2020-12-10 22:11:00 40.24 kg/m2 [facility] Systolic blood pressure 2020-12-04 21:30:00 126 mm[Hg] [facility] Diastolic blood pressure 2020-12-04 21:30:00 79 mm[Hg] [facility] Heart rate 2020-12-04 21:30:00 91 /min [facility] Respiratory rate 2020-12-04 21:30:00 20 /min [facility] Oxygen saturation in Arterial blood by Pulse oximetry 2020-12-04 21:30:00 96 /min [facility] Body temperature 2020-12-04 19:49:00 37.06 Latanya [facility] Body height 2020-12-04 19:49:00 157.5 cm [facility] Body weight 2020-12-04 19:49:00 99.791 kg [facility] BMI 2020-12-04 19:49:00 40.24 kg/m2 [facility] Systolic blood pressure 2020-11-04 01:42:00 142 mm[Hg] [facility] Diastolic blood pressure 2020-11-04 01:42:00 100 mm[Hg] [facility] Heart rate 2020-11-04 01:42:00 109 /min [facility] Body temperature 2020-11-04 01:42:00 36.78 Latanya [facility] Respiratory rate 2020-11-04 01:42:00 20 /min [facility] Body weight 2020-11-04 01:42:00 99.791 kg [facility] BMI 2020-11-04 01:42:00 40.24 kg/m2 [facility] Oxygen saturation in Arterial blood by Pulse oximetry 2020-11-04 01:42:00 98 /min [facility] Systolic blood pressure 2020-09-17 15:52:00 138 mm[Hg] [facility] Diastolic blood pressure 2020-09-17 15:52:00 94 mm[Hg] [facility] Heart rate 2020-09-17 15:52:00 98 /min [facility] Body temperature 2020-09-17 15:52:00 36.94 Latanya [facility] Respiratory rate 2020-09-17 15:52:00 20 /min [facility] Body weight 2020-09-17 15:52:00 95.255 kg [facility] BMI 2020-09-17 15:52:00 38.41 kg/m2 [facility] Oxygen saturation in Arterial blood by Pulse oximetry 2020-09-17 15:52:00 97 /min [facility] Systolic blood pressure 2020-09-17 15:52:00 138 mm[Hg] [facility] Diastolic blood pressure 2020-09-17 15:52:00 94 mm[Hg] [facility] Heart rate 2020-09-17 15:52:00 98 /min [facility] Body temperature 2020-09-17 15:52:00 36.94 Latanya [facility] Respiratory rate 2020-09-17 15:52:00 20 /min [facility] Body weight 2020-09-17 15:52:00 95.255 kg [facility] BMI 2020-09-17 15:52:00 38.41 kg/m2 [facility] Oxygen saturation in Arterial blood by Pulse oximetry 2020-09-17 15:52:00 97 /min [facility] Systolic blood pressure 2020-09-07 06:35:00 123 mm[Hg] [facility] Diastolic blood pressure 2020-09-07 06:35:00 56 mm[Hg] [facility] Heart rate 2020-09-07 06:35:00 97 /min [facility] Body temperature 2020-09-07 06:35:00 36.28 Latanya [facility] Respiratory rate 2020-09-07 06:35:00 18 /min [facility] Body weight 2020-09-07 06:35:00 99.791 kg [facility] BMI 2020-09-07 06:35:00 40.24 kg/m2 [facility] Oxygen saturation in Arterial blood by Pulse oximetry 2020-09-07 06:35:00 98 /min [facility] Systolic blood pressure 2020-09-07 06:35:00 123 mm[Hg] [facility] Diastolic blood pressure 2020-09-07 06:35:00 56 mm[Hg] [facility] Heart rate 2020-09-07 06:35:00 97 /min [facility] Body temperature 2020-09-07 06:35:00 36.28 Latanya [facility] Respiratory rate 2020-09-07 06:35:00 18 /min [facility] Body weight 2020-09-07 06:35:00 99.791 kg [facility] BMI 2020-09-07 06:35:00 40.24 kg/m2 [facility] Oxygen saturation in Arterial blood by Pulse oximetry 2020-09-07 06:35:00 98 /min [facility] Systolic blood pressure 2020-08-28 09:00:00 132 mm[Hg] [facility] Diastolic blood pressure 2020-08-28 09:00:00 87 mm[Hg] [facility] Heart rate 2020-08-28 09:00:00 90 /min [facility] Respiratory rate 2020-08-28 09:00:00 20 /min [facility] Oxygen saturation in Arterial blood by Pulse oximetry 2020-08-28 09:00:00 97 /min [facility] Body temperature 2020-08-28 07:59:00 36.72 Latanya [facility] Body height 2020-08-28 07:59:00 157.5 cm [facility] Body weight 2020-08-28 07:59:00 99.791 kg [facility] BMI 2020-08-28 07:59:00 40.24 kg/m2 [facility] Systolic blood pressure 2020-08-28 09:00:00 132 mm[Hg] [facility] Diastolic blood pressure 2020-08-28 09:00:00 87 mm[Hg] [facility] Heart rate 2020-08-28 09:00:00 90 /min [facility] Respiratory rate 2020-08-28 09:00:00 20 /min [facility] Oxygen saturation in Arterial blood by Pulse oximetry 2020-08-28 09:00:00 97 /min [facility] Body temperature 2020-08-28 07:59:00 36.72 Latanya [facility] Body height 2020-08-28 07:59:00 157.5 cm [facility] Body weight 2020-08-28 07:59:00 99.791 kg [facility] BMI 2020-08-28 07:59:00 40.24 kg/m2 [facility] Systolic blood pressure 2020-08-14 19:40:00 135 mm[Hg] [facility] Diastolic blood pressure 2020-08-14 19:40:00 100 mm[Hg] [facility] Heart rate 2020-08-14 19:40:00 68 /min [facility] Body temperature 2020-08-14 19:40:00 37.11 Latanya [facility] Respiratory rate 2020-08-14 19:40:00 19 /min [facility] Oxygen saturation in Arterial blood by Pulse oximetry 2020-08-14 19:40:00 99 /min [facility] Body height 2020-08-14 17:41:00 157.5 cm [facility] Body weight 2020-08-14 17:41:00 99.791 kg [facility] BMI 2020-08-14 17:41:00 40.24 kg/m2 [facility] Systolic blood pressure 2020-08-14 19:40:00 135 mm[Hg] [facility] Diastolic blood pressure 2020-08-14 19:40:00 100 mm[Hg] [facility] Heart rate 2020-08-14 19:40:00 68 /min [facility] Body temperature 2020-08-14 19:40:00 37.11 Latanya [facility] Respiratory rate 2020-08-14 19:40:00 19 /min [facility] Oxygen saturation in Arterial blood by Pulse oximetry 2020-08-14 19:40:00 99 /min [facility] Body height 2020-08-14 17:41:00 157.5 cm [facility] Body weight 2020-08-14 17:41:00 99.791 kg [facility] BMI 2020-08-14 17:41:00 40.24 kg/m2 [facility] Systolic blood pressure 2020-08-11 04:00:00 106 mm[Hg] [facility] Diastolic blood pressure 2020-08-11 04:00:00 92 mm[Hg] [facility] Heart rate 2020-08-11 04:00:00 90 /min [facility] Respiratory rate 2020-08-11 04:00:00 16 /min [facility] Oxygen saturation in Arterial blood by Pulse oximetry 2020-08-11 04:00:00 99 /min [facility] Body temperature 2020-08-11 03:12:56 37.72 Latanya [facility] Body height 2020-08-11 00:19:00 157.5 cm [facility] Body weight 2020-08-11 00:19:00 99.791 kg [facility] BMI 2020-08-11 00:19:00 40.24 kg/m2 [facility] Systolic blood pressure 2020-08-11 04:00:00 106 mm[Hg] [facility] Diastolic blood pressure 2020-08-11 04:00:00 92 mm[Hg] [facility] Heart rate 2020-08-11 04:00:00 90 /min [facility] Respiratory rate 2020-08-11 04:00:00 16 /min [facility] Oxygen saturation in Arterial blood by Pulse oximetry 2020-08-11 04:00:00 99 /min [facility] Body temperature 2020-08-11 03:12:56 37.72 Latanya [facility] Body height 2020-08-11 00:19:00 157.5 cm [facility] Body weight 2020-08-11 00:19:00 99.791 kg [facility] BMI 2020-08-11 00:19:00 40.24 kg/m2 [facility] Systolic blood pressure 2020-08-07 13:16:00 100 mm[Hg] [facility] Diastolic blood pressure 2020-08-07 13:16:00 69 mm[Hg] [facility] Heart rate 2020-08-07 13:16:00 99 /min [facility] Body temperature 2020-08-07 13:16:00 36.67 Latanya [facility] Respiratory rate 2020-08-07 13:16:00 18 /min [facility] Body weight 2020-08-07 13:16:00 95.255 kg [facility] BMI 2020-08-07 13:16:00 38.41 kg/m2 [facility] Oxygen saturation in Arterial blood by Pulse oximetry 2020-08-07 13:16:00 99 /min [facility] Systolic blood pressure 2020-08-07 13:16:00 100 mm[Hg] [facility] Diastolic blood pressure 2020-08-07 13:16:00 69 mm[Hg] [facility] Heart rate 2020-08-07 13:16:00 99 /min [facility] Body temperature 2020-08-07 13:16:00 36.67 Latanya [facility] Respiratory rate 2020-08-07 13:16:00 18 /min [facility] Body weight 2020-08-07 13:16:00 95.255 kg [facility] BMI 2020-08-07 13:16:00 38.41 kg/m2 [facility] Oxygen saturation in Arterial blood by Pulse oximetry 2020-08-07 13:16:00 99 /min [facility] Systolic blood pressure 2020-07-01 02:00:00 136 mm[Hg] [facility] Diastolic blood pressure 2020-07-01 02:00:00 85 mm[Hg] [facility] Heart rate 2020-07-01 02:00:00 73 /min [facility] Respiratory rate 2020-07-01 02:00:00 20 /min [facility] Oxygen saturation in Arterial blood by Pulse oximetry 2020-07-01 02:00:00 97 /min [facility] Body temperature 2020-06-30 23:36:00 36.56 Latanya [facility] Body height 2020-06-30 23:36:00 157.5 cm [facility] Body weight 2020-06-30 23:36:00 95.255 kg [facility] BMI 2020-06-30 23:36:00 38.41 kg/m2 [facility] Systolic blood pressure 2020-07-01 02:00:00 136 mm[Hg] [facility] Diastolic blood pressure 2020-07-01 02:00:00 85 mm[Hg] [facility] Heart rate 2020-07-01 02:00:00 73 /min [facility] Respiratory rate 2020-07-01 02:00:00 20 /min [facility] Oxygen saturation in Arterial blood by Pulse oximetry 2020-07-01 02:00:00 97 /min [facility] Body temperature 2020-06-30 23:36:00 36.56 Latanya [facility] Body height 2020-06-30 23:36:00 157.5 cm [facility] Body weight 2020-06-30 23:36:00 95.255 kg [facility] BMI 2020-06-30 23:36:00 38.41 kg/m2 [facility] Systolic blood pressure 2020-06-28 21:57:00 151 mm[Hg] [facility] Diastolic blood pressure 2020-06-28 21:57:00 88 mm[Hg] [facility] Heart rate 2020-06-28 21:57:00 94 /min [facility] Body temperature 2020-06-28 21:57:00 37.78 Latanya [facility] Respiratory rate 2020-06-28 21:57:00 16 /min [facility] Body height 2020-06-28 21:57:00 157.5 cm [facility] Body weight 2020-06-28 21:57:00 95.255 kg [facility] BMI 2020-06-28 21:57:00 38.41 kg/m2 [facility] Oxygen saturation in Arterial blood by Pulse oximetry 2020-06-28 21:57:00 96 /min [facility] Systolic blood pressure 2020-06-28 21:57:00 151 mm[Hg] [facility] Diastolic blood pressure 2020-06-28 21:57:00 88 mm[Hg] [facility] Heart rate 2020-06-28 21:57:00 94 /min [facility] Body temperature 2020-06-28 21:57:00 37.78 Latanya [facility] Respiratory rate 2020-06-28 21:57:00 16 /min [facility] Body height 2020-06-28 21:57:00 157.5 cm [facility] Body weight 2020-06-28 21:57:00 95.255 kg [facility] BMI 2020-06-28 21:57:00 38.41 kg/m2 [facility] Oxygen saturation in Arterial blood by Pulse oximetry 2020-06-28 21:57:00 96 /min [facility] Systolic blood pressure 2020-06-13 03:40:00 122 mm[Hg] [facility] Diastolic blood pressure 2020-06-13 03:40:00 78 mm[Hg] [facility] Heart rate 2020-06-13 03:40:00 90 /min [facility] Respiratory rate 2020-06-13 03:40:00 18 /min [facility] Oxygen saturation in Arterial blood by Pulse oximetry 2020-06-13 03:40:00 94 /min [facility] Body temperature 2020-06-12 23:39:00 37.22 Latanya [facility] Body weight 2020-06-12 23:39:00 97.07 kg [facility] BMI 2020-06-12 23:39:00 39.14 kg/m2 [facility] Systolic blood pressure 2020-06-13 03:40:00 122 mm[Hg] [facility] Diastolic blood pressure 2020-06-13 03:40:00 78 mm[Hg] [facility] Heart rate 2020-06-13 03:40:00 90 /min [facility] Respiratory rate 2020-06-13 03:40:00 18 /min [facility] Oxygen saturation in Arterial blood by Pulse oximetry 2020-06-13 03:40:00 94 /min [facility] Body temperature 2020-06-12 23:39:00 37.22 Latanya [facility] Body weight 2020-06-12 23:39:00 97.07 kg [facility] BMI 2020-06-12 23:39:00 39.14 kg/m2 [facility] Heart rate 2020-05-17 00:40:00 82 /min [facility] Respiratory rate 2020-05-17 00:40:00 18 /min [facility] Oxygen saturation in Arterial blood by Pulse oximetry 2020-05-17 00:40:00 95 /min [facility] Systolic blood pressure 2020-05-17 00:00:00 137 mm[Hg] [facility] Diastolic blood pressure 2020-05-17 00:00:00 93 mm[Hg] [facility] Body temperature 2020-05-16 23:17:00 37.61 Latanya [facility] Body weight 2020-05-16 23:17:00 97.07 kg [facility] BMI 2020-05-16 23:17:00 39.14 kg/m2 [facility] Heart rate 2020-05-17 00:40:00 82 /min [facility] Respiratory rate 2020-05-17 00:40:00 18 /min [facility] Oxygen saturation in Arterial blood by Pulse oximetry 2020-05-17 00:40:00 95 /min [facility] Systolic blood pressure 2020-05-17 00:00:00 137 mm[Hg] [facility] Diastolic blood pressure 2020-05-17 00:00:00 93 mm[Hg] [facility] Body temperature 2020-05-16 23:17:00 37.61 Latanya [facility] Body weight 2020-05-16 23:17:00 97.07 kg [facility] BMI 2020-05-16 23:17:00 39.14 kg/m2 [facility] Systolic blood pressure 2020-05-15 08:50:00 131 mm[Hg] [facility] Diastolic blood pressure 2020-05-15 08:50:00 80 mm[Hg] [facility] Heart rate 2020-05-15 08:50:00 70 /min [facility] Respiratory rate 2020-05-15 08:50:00 18 /min [facility] Oxygen saturation in Arterial blood by Pulse oximetry 2020-05-15 08:50:00 97 /min [facility] Body temperature 2020-05-15 05:29:00 36.44 Latanya [facility] Body height 2020-05-15 05:29:00 157.5 cm [facility] Body weight 2020-05-15 05:29:00 97.07 kg Simultaneous filing. User may not have seen previous data. [facility] BMI 2020-05-15 05:29:00 39.14 kg/m2 [facility] Systolic blood pressure 2020-05-15 08:50:00 131 mm[Hg] [facility] Diastolic blood pressure 2020-05-15 08:50:00 80 mm[Hg] [facility] Heart rate 2020-05-15 08:50:00 70 /min [facility] Respiratory rate 2020-05-15 08:50:00 18 /min [facility] Oxygen saturation in Arterial blood by Pulse oximetry 2020-05-15 08:50:00 97 /min [facility] Body temperature 2020-05-15 05:29:00 36.44 Latanya [facility] Body height 2020-05-15 05:29:00 157.5 cm [facility] Body weight 2020-05-15 05:29:00 97.07 kg Simultaneous filing. User may not have seen previous data. [facility] BMI 2020-05-15 05:29:00 39.14 kg/m2 [facility] Procedures Procedure Date / Time Performed Performing Clinician Source POCT TEST 2024-05-08 02:00:00 Saleem Edward [facility] LIPASE 2024-05-08 00:31:00 Saleem Edward [facility] MAGNESIUM 2024-05-08 00:31:00 Saleem Edward [facility] TROPONIN I 2024-05-08 00:31:[address] [facility] COMP. METABOLIC PANEL ([id number]) 2024-05-08 00:31:00 Saleem Edward [facility] CBC WITH DIFF 2024-05-08 00:31:00 Saleem Edward [facility] URINALYSIS 2024-05-08 00:31:00 Saleem Edward [facility] CT ABDOMEN PELVIS WO CONTRAST 2024-04-08 23:45:15 Sophie Rojoherine [facility] POCT TEST 2024-04-08 23:01:00 Judy Rojo [facility] LIPASE 2024-04-08 22:47[facility]ABOLIC PANEL ([id number]) 2024-04-08 22:47:00 [facility]FF 2024-04-08 22:47[facility]00 [facility]24-04-08 22:47[facility] [facility] PELVIS W CONTRAST 2023-10-11 04:08:24 Olivia Garcia [facility] POCT TEST 2023-10-11 03:40:00 Olivia Garcia [facility] LIPASE 2023-10-11 03:25:00 Olivia Garcia [facility] COMP. METABOLIC PANEL ([id number]) 2023-10-11 03:25:00 Olivia Garcia [facility] CBC WITH DIFF 2023-10-11 03:25:00 [facility] 2023-10-11 03:25:00 Olivia Garcia [facility] XR KUB 2023-07-02 03:34:07 Roberto Richards [facility] POCT TEST 2023-07-02 02:30:00 Alberta Richards [facility] LIPASE 2023-07-02 02:05:00 Roberto Richards [facility] COMP. METABOLIC PANEL ([id number]) 2023-07-02 02:05:00 Roberto Richards [facility] CBC WITH DIFF 2023-07-02 02:05:00 Roberto Richards [facility] URINALYSIS 2023-07-02 02:05:[address] [facility] URINE DRUG (IMMUNOASSAY) - COMPREHENSIVE DRUG SCREEN W/O REFLEX 2023-07-02 02:05:00 Roberto Richards [facility] CONSENT/REFUSAL FOR DIAGNOSIS AND TREATMENT 2023-07-02 01:43:05 Doctor [place], [place] [facility] LIPASE 2023-05-09 22:47:00 Narayan Narvaez [facility] COMP. METABOLIC PANEL ([id number]) 2023-05-09 22:47:00 Narayan Narvaez [facility] CBC WITH DIFF 2023-05-09 22:47:00 Narayan Narvaez [facility] CONSENT/REFUSAL FOR DIAGNOSIS AND TREATMENT 2023-05-09 22:32:48 Doctor Unassigned, [place] [facility] CT ABDOMEN PELVIS W CONTRAST 2023-04-30 23:47:56 Narayan Narvaez [facility] COMP. METABOLIC PANEL ([id number]) 2023-04-30 23:08:00 Narayan Narvaez [facility] CBC WITH DIFF 2023-04-30 23:08:00 Narayan Narvaez [facility] POCT TEST 2023-04-30 22:59:00 Jaquan Narvaez [facility] URINALYSIS 2023-04-30 22:57:[address] CONSENT/REFUSAL FOR DIAGNOSIS AND TREATMENT 2023-04-30 22:14:38 Doctor Unassigned, [place] [facility] XR ABDOMEN ACUTE SERIES 2023-04-17 02:13:44 Do minal Richards [facility] POCT TEST 2023-04-17 02:11:00 Alberta Richards [facility] LIPASE 2023-04-17 02:04:00 Roberto Richards [facility] TROPONIN I 2023-04-17 02:04:00 Roberto Richards [facility] COMP. METABOLIC PANEL ([id number]) 2023-04-17 02:04:00 Roberto Richards [facility] CBC WITH DIFF 2023-04-17 02:04:00 Roberto Richards [facility] PROTHROMBIN TIME / INR 2023-04-17 02:04:00 Jalen Richards [facility] ACTIVATED PARTIAL THRMPLAS MARCIO 2023-04-17 02:04:00 Roberto Richards [facility] URINALYSIS 2023-04-17 02:04:00 Roberto Richards [facility] N-TERMINAL PRO-BNP 2023-04-17 02:04:00 Roberto Richards [facility] URINE DRUG (IMMUNOASSAY) - COMPREHENSIVE DRUG SCREEN W/O REFLEX 2023-04-17 02:04:00 Roberto Richards [facility] CONSENT/REFUSAL FOR DIAGNOSIS AND TREATMENT 2023-04-17 01:22:36 Doctor Unassigned, [place] [facility] URINALYSIS 2023-04-09 01:02:00 Saleem Edward [facility] LIPASE 2023-04-08 23:15:00 Saleem Edward [facility] MAGNESIUM 2023-04-08 23:15:00 Saleem Edward [facility] TROPONIN I 2023-04-08 23:15:00 Saleem Edward [facility] COMP. METABOLIC PANEL ([id number]) 2023-04-08 23:15:00 Saleem Edward [facility] CBC WITH DIFF 2023-04-08 23:15:00 Saleem Edward [facility] CONSENT/REFUSAL FOR DIAGNOSIS AND TREATMENT 2023-04-08 21:57:42 Doctor Unassigned, [place] [facility] CT ABDOMEN PELVIS W CONTRAST 2023-03-10 03:38:58 Roberto Richards [facility] POCT TEST 2023-03-10 02:51:00 Alberta Richards [facility] URINALYSIS 2023-03-10 01:49:00 Roberto Richards [facility] LIPASE 2023-03-10 01:46:00 Roberto Richards [facility] COMP. METABOLIC PANEL ([id number]) 2023-03-10 01:46:00 Roberto Richards [facility] CBC WITH DIFF 2023-03-10 01:46:00 Roberto Richards [facility] CONSENT/REFUSAL FOR DIAGNOSIS AND TREATMENT 2023-03-10 01:36:24 Doctor Unassigned, [place] [facility] CONSENT/REFUSAL FOR DIAGNOSIS AND TREATMENT 2023-03-10 01:14:40 Doctor Unassigned, [place] [facility] CT ABDOMEN PELVIS W CONTRAST 2023-03-02 05:16:35 Olivia Garcia [facility] POCT TEST 2023-03-02 03:26:00 Olivia Garcia [facility] LIPASE 2023-03-02 03:23:00 Olivia Garcia [facility] COMP. METABOLIC PANEL ([id number]) 2023-03-02 03:23:00 Olivia Garcia [facility] CBC WITH DIFF 2023-03-02 03:23:00 Olivia Garcia [facility] URINALYSIS 2023-03-02 03:23:00 Olivia Garcia [facility] CONSENT/REFUSAL FOR DIAGNOSIS AND TREATMENT 2023-03-02 00:22:44 Doctor Unassigned, [place] [facility] CONSENT/REFUSAL FOR DIAGNOSIS AND TREATMENT 2023-02-18 03:44:46 Doctor Unassigned, [place] [facility] LIPASE 2023-02-17 09:28:00 Jesús Montero [facility] HEPATIC FUNCTION PANEL ([id number]) (ALB,T.PRO,BILI T,BU/BC,ALT,AST,ALK PHOS) 2023-02-17 09:28:00 [facility]EL (NA, K, CL, CO2, GLUCOSE, BUN, CREATININE, CA) 2023-02-17 09:28:00 [facility] 2023-02-17 09:28:00 Kylah Jes[facility]s [facility] LIPASE 2023-02-16 18:24:00 [facility] FUN[facility] PANEL ([id number]) (ALB,T.PRO,BILI T,BU/BC,ALT,AST,ALK PHOS) 2023-02-16 18:24:00 Kylah [facility] BASIC METABOLIC PANEL (NA, K, CL, CO2, GLUCOSE, BUN, CREATININE, CA) 2023-02-16 18:24:00 Kylah [facility] CBC WITH DIFF 2023-02-16 18:23:[address] [facility] CT ABDOMEN PELVIS W CONTRAST 2023-02-15 23:29:00 Leeanne Wise [facility] LIPASE 2023-02-15 21:45:00 Leeanne Wise [facility] COMP. METABOLIC PANEL ([id number]) 2023-02-15 21:45:00 Leeanne Wise [facility] CBC WITH DIFF 2023-02-15 21:45:00 Leeanne Wise [facility] D-DIMER 2023-02-15 19:55:00 Leeanne Wise [facility] URINALYSIS 2023-02-15 19:50:00 Leeanne Wise [facility] RAPID INFLUENZA A/B 2023-02-15 19:50:00 Leeanne Wise [facility] COVID-19 (ID NOW RAPID TESTING) 2023-02-15 19:50:00 Leeanne Wise [facility] XR CHEST 1 VW 2023-02-15 19:38:00 Leeanne Wise [facility] ASSIGNMENT OF BENEFITS 2023-02-15 19:26:58 Ederto r Unassigned, [place] [facility] HB ECG ROUTINE & RHYTHM STRIP 2023-02-15 19:07:40 Leeanne Wise [facility] NOTICE OF PRIVACY PRACTICES 2023-02-15 18:24:07 Doctor Unassigned, [place] [facility] CONSENT/REFUSAL FOR DIAGNOSIS AND TREATMENT 2023-02-15 18:23:04 Doctor Unassigned, [place] [facility] TROPONIN I 2022-01-10 00:32:00 Melida Longoria [facility] TROPONIN I 2022-01-09 22:17:00 Melida Longoria [facility] BASIC METABOLIC PANEL (NA, K, CL, CO2, GLUCOSE, BUN, CREATININE, CA) 2022-01-09 22:17:00 Melida Longoria [facility] CBC WITH DIFF 2022-01-09 22:17:00 Melida Longoria [facility] N-TERMINAL PRO-BNP 2022-01-09 22:17:00 Melida Longoria [facility] XR CHEST 1 VW 2022-01-09 22:11:00 Melida Longoria [facility] CONSENT/REFUSAL FOR DIAGNOSIS AND TREATMENT 2022-01-09 21:34:15 Doctor Unassigned, [place] [facility] TROPONIN I 2021-12-14 05:39:00 Wil Mcqueen [facility] XR CHEST 1 VW 2021-12-14 04:39:00 Wil Mcqueen [facility] POCT TEST 2021-12-14 04:20:00 Wil Mcqueen [facility] URINALYSIS 2021-12-14 03:57:00 Wil Mcqueen [facility] LIPASE 2021-12-14 03:43:00 Wil Mcqueen [facility] TROPONIN I 2021-12-14 03:43:00 Wil Mcqueen [facility] FREE T4 2021-12-14 03:43:00 Wil Mcqueen [facility] THYROID STIMULATING HORMONE 2021-12-14 03:43:00 Wil Mcqueen [facility] COMP. METABOLIC PANEL ([id number]) 2021-12-14 03:43:00 Wil Mcqueen [facility] CBC WITH DIFF 2021-12-14 03:43:00 Wil Mcqueen [facility] FREE T3 2021-12-14 03:43:00 Wil Mcqueen [facility] CONSENT/REFUSAL FOR DIAGNOSIS AND TREATMENT 2021-12-14 02:58:21 Doctor Unassigned, [place] [facility] TROPONIN I 2021-11-12 03:04:00 Dee Wang U [facility] POCT TEST 2021-11-12 02:56:00 Tra Wang [facility] URINE DRUG (IMMUNOASSAY) - COMPREHENSIVE DRUG SCREEN 2021-11-12 02:30:00 Dee Wang [facility] URINALYSIS 2021-11-12 02:30:00 Dee Wang U [facility] XR CHEST 2 VW 2021-11-12 01:45:03 Dee Wang [facility] LIPASE 2021-11-12 01:34:00 Dee Wang U [facility] TROPONIN I 2021-11-12 01:34:00 Dee Wang U [facility] COMP. METABOLIC PANEL ([id number]) 2021-11-12 01:34:00 Dee Wang [facility] CBC WITH DIFF 2021-11-12 01:34:00 Dee Wang [facility] N-TERMINAL PRO-BNP 2021-11-12 01:34:00 Mckinley Wang [facility] CONSENT/REFUSAL FOR DIAGNOSIS AND TREATMENT 2021-11-12 00:36:34 Doctor Unassigned, [place] [facility] CT ABDOMEN PELVIS W CONTRAST 2021-09-12 02:49:43 Dee Wang [facility] COVID-19 (ID NOW RAPID TESTING) 2021-09-12 02:23:00 Dee Wang [facility] POCT TEST 2021-09-12 02:21:00 Tra Wang [facility] POCT TEST 2021-09-12 01:45:00 Olivia Garcia [facility] URINALYSIS 2021-09-12 01:43:00 Olivia Garcia [facility] LIPASE 2021-09-12 01:40:00 Olivia Garcia [facility] COMP. METABOLIC PANEL ([id number]) 2021-09-12 01:40:00 Olivia Garcia [facility] CBC WITH DIFF 2021-09-12 01:40:00 Olivia Garcia [facility] CONSENT/REFUSAL FOR DIAGNOSIS AND TREATMENT 2021-09-12 01:26:55 Doctor Unassigned, [place] [facility] XR LUMBAR SPINE 1 VW 2021-08-15 07:03:00 Angeles Garcia i [facility] URINALYSIS 2021-08-15 06:35:00 Olivia Garcia [facility] POCT TEST 2021-08-15 06:35:00 Olivia Garcia [facility] NOTICE OF PRIVACY PRACTICES 2021-08-15 06:01:56 Doctor Unassigned, [place] [facility] CONSENT/REFUSAL FOR DIAGNOSIS AND TREATMENT 2021-08-15 05:25:54 Doctor Unassigned, [place] [facility] TROPONIN I 2021-05-28 07:50:00 Cem Choi [facility] D-DIMER 2021-05-28 07:05:00 Cem Choi [facility] XR CHEST 2 VW 2021-05-28 05:46[facility] 2021-05-28 05:32:00 Anthony [facility] LIPASE 2021-05-28 05:29:00 AnthonyCem [facility] TROPONIN I 2021-05-28 05:29:00 Cem Choi [facility] COMP. METABOLIC PANEL ([id number]) 2021-05-28 05:29:00 [facility] 2021-05-28 05:29:00 Cem Choi [facility] N-TERMINAL PRO-BNP 2021-05-28 05:29:00 AntonCem majano [facility] COVID-19 (ID NOW RAPID TESTING) 2021-05-28 05:29:00 Anthony [facility] TROPONIN I 2021-04-08 10:01:00 Brittni Romero [facility] BASIC METABOLIC PANEL (NA, K, CL, CO2, GLUCOSE, BUN, CREATININE, CA) 2021-04-08 10:01:00 Brittni Romero [facility] CBC WITH DIFF 2021-04-08 10:01:00 Brittni Romero [facility] TROPONIN I 2021-04-08 04:12:00 Brittni Romero [facility] XR CHEST 1 VW 2021-04-07 22:33:33 Roberto Richards [facility] LIPASE 2021-04-07 21:52:00 Roberto Richards [facility] MAGNESIUM 2021-04-07 21:52:00 Brittni Romero [facility] TROPONIN I 2021-04-07 21:52:00 Roberto Richards [facility] THYROID STIMULATING HORMONE 2021-04-07 21:52:00 Brittni Romero Rocio [facility] COMP. METABOLIC PANEL ([id number]) 2021-04-07 21:52:00 Roberto Richards [facility] LIPID PANEL ([id number])(TOTAL CHOLESTEROL, TRIGLYCERIDES, HDL) 2021-04-07 21:52:00 Brittni Romero [facility] CBC WITH DIFF 2021-04-07 21:52:00 Roberto Richards [facility] GLYCOSYLATED HEMOGLOBIN (A1C) 2021-04-07 21:52:00 Brittni Romero [facility] PROTHROMBIN TIME / INR 2021-04-07 21:52:00 Jalen Richards [facility] ACTIVATED PARTIAL THRMPLAS MARCIO 2021-04-07 21:52:00 Roberto Richards [facility] N-TERMINAL PRO-BNP 2021-04-07 21:52:00 Roberto Richards [facility] COVID-19 (ID NOW RAPID TESTING) 2021-04-07 21:51:00 Roberto Richards [facility] HB ECG ROUTINE & RHYTHM STRIP 2021-04-07 21:38:41 Maurice [facility] CONSENT/REFUSAL FOR DIAGNOSIS AND TREATMENT 2021-04-07 21:17:47 Doctor Unassigned, [place] [facility] CT ABDOMEN PELVIS WO CONTRAST 2021-01-12 08:10:17 Singer [facility] POCT TEST 2021-01-12 08:02:00 Jaquan Narvaez [facility] URINALYSIS 2021-01-12 07:58:00 Singer [facility] COMP. METABOLIC PANEL ([id number]) 2021-01-12 07:56:00 Narayan Narvaez [facility] CBC WITH DIFF 2021-01-12 07:56:00 Singer [facility] TROPONIN I 2020-12-11 00:47:00 Bal Hassan [facility] XR CHEST 1 VW 2020-12-10 22:40:57 Bal Hassan [facility] POCT TEST 2020-12-10 22:32:00 Suzanna Hassan [facility] URINALYSIS 2020-12-10 22:30:00 Bal Hassan [facility] LIPASE 2020-12-10 22:24:00 Bal Hassan [facility] TROPONIN I 2020-12-10 22:24:00 Bal Hassan [facility] HEPATIC FUNCTION PANEL ([id number]) (ALB,T.PRO,BILI T,BU/BC,ALT,AST,ALK PHOS) 2020-12-10 22:24:00 Bal Hassan [facility] BASIC METABOLIC PANEL (NA, K, CL, CO2, GLUCOSE, BUN, CREATININE, CA) 2020-12-10 22:24:00 Bal Hassan [facility] CBC WITH DIFF 2020-12-10 22:24:00 Bal Hassan [facility] D-DIMER 2020-12-10 22:24:00 Bal Hassan [facility] N-TERMINAL PRO-BNP 2020-12-10 22:24:00 Mirtha Hassan [facility] POCT TEST 2020-12-04 21:18:00 [facility] 2020-12-04 21:17:00 Hernan [facility] LIPASE 2020-12-04 20:20:00 Hernan [facility] TROPONIN I 2020-12-04 20:20:00 Hernan [facility] HEPATIC FUNCTION PANEL ([id number]) (ALB,T.PRO,BILI T,BU/BC,ALT,AST,ALK PHOS) 2020-12-04 20:20:00 [facility]IC METABOLIC PANEL (NA, K, CL, CO2, GLUCOSE, BUN, CREATININE, CA) 2020-12-04 20:20:00 [facility] WITH DIFF 2020-12-04 20:20:[address] [facility] XR CHEST 1 VW 2020-12-04 20:16:[address] [facility] XR ANKLE 3+ VW LEFT 2020-12-04 20:16:54 [facility]/REFUSAL FOR DIAGNOSIS AND TREATMENT 2020-12-04 19:43:45 Doctor Unassigned, [place] [facility] XR CHEST 1 VW 2020-11-04 02:24:02 Olivia Garcia [facility] URINE DRUG (IMMUNOASSAY) - 4 ER PANEL 2020-11-04 02:19:00 Olivia Garcia [facility] URINALYSIS 2020-11-04 02:19:00 Olivia Garcia [facility] LIPASE 2020-11-04 02:16:00 Olivia Garcia [facility] TROPONIN I 2020-11-04 02:16:00 Olivia Garcia [facility] COMP. METABOLIC PANEL ([id number]) 2020-11-04 02:16:00 Olivia Garcia [facility] CBC WITH DIFF 2020-11-04 02:16:00 Olivia Garcia [facility] PROTHROMBIN TIME / INR 2020-11-04 02:16:00 Lucia Garcia [facility] ACTIVATED PARTIAL THRMPLAS MARCIO 2020-11-04 02:16:00 Olivia Garcia [facility] CONSENT/REFUSAL FOR DIAGNOSIS AND TREATMENT 2020-11-04 01:11:16 Doctor Unassigned, [place] [facility] XR CHEST 1 VW 2020-09-17 17:32:21 Leeanne Wise [facility] RAPID STREP SCREEN FOR GROUP A 2020-09-17 16:31:00 Leeanne Wise [facility] COVID-19 (ID NOW RAPID TESTING) 2020-09-17 16:31:00 Leeanne Wise [facility] NOTICE OF PRIVACY PRACTICES 2020-09-17 15:47:38 Doctor Unassigned, [place] [facility] CONSENT/REFUSAL FOR DIAGNOSIS AND TREATMENT 2020-09-17 15:47:07 Doctor Unassigned, [place] [facility] XR FOREARM 2 VW LEFT 2020-09-07 06:59:53 Saleem Edward [facility] XR HAND 3+ VW LEFT 2020-09-07 06:59:53 Saleem Edward [facility] NOTICE OF PRIVACY PRACTICES 2020-09-07 06:06:09 Doctor Unassigned, [place] [facility] CONSENT/REFUSAL FOR DIAGNOSIS AND TREATMENT 2020-09-07 06:03:10 Doctor Unassigned, [place] [facility] CT ABDOMEN PELVIS W CONTRAST 2020-08-28 09:16:08 Olivia Garcia [facility] POCT TEST 2020-08-28 08:45:00 Olivia Garcia [facility] URINALYSIS 2020-08-28 08:43:00 Olivia Garcia [facility] LIPASE 2020-08-28 08:09:00 Jose [facility] COMP. METABOLIC PANEL ([id number]) 2020-08-28 08:09:00 Olivia Garcia [facility] CBC WITH DIFF 2020-08-28 08:09:00 [facility] 1 VW 2020-08-14 18:10:[address] LIPASE 2020-08-14 17:58:00 Best Taylor [facility] TROPONIN I 2020-08-14 17:58:00 Best Taylor [facility] COMP. METABOLIC PANEL ([id number]) 2020-08-14 17:58:00 Best Taylor [facility] CBC WITH DIFF 2020-08-14 17:58:00 Best Taylor [facility] URINALYSIS 2020-08-14 17:58:[address] [facility] LACTIC ACID WHOLE BLOOD 2020-08-14 17:58:00 Sophie Taylor [facility] ADC / LCC - DRUG SCREEN TRIAGE 2020-08-14 17:58:00 Best Taylor [facility] CONSENT/REFUSAL FOR DIAGNOSIS AND TREATMENT 2020-08-14 17:33:16 Doctor Unassigned, [place] [facility] CT ABDOMEN PELVIS WO CONTRAST 2020-08-11 04:11:07 Best Taylor [facility] XR CHEST 1 VW 2020-08-11 03:56:48 Best Taylor [facility] POCT TEST 2020-08-11 03:10:00 Best Taylor [facility] BLOOD CULTURE SCREEN 2020-08-11 02:01:00 Best Taylor [facility] BLOOD CULTURE SCREEN 2020-08-11 01:45:00 Best Taylor [facility] LIPASE 2020-08-11 01:45:00 Best Taylor [facility] TROPONIN I 2020-08-11 01:45:00 Best Taylor [facility] HEPATIC FUNCTION PANEL ([id number]) (ALB,T.PRO,BILI T,BU/BC,ALT,AST,ALK PHOS) 2020-08-11 01:45:00 Best Taylor [facility] BASIC METABOLIC PANEL (NA, K, CL, CO2, GLUCOSE, BUN, CREATININE, CA) 2020-08-11 01:45:00 Best Taylor [facility] CBC WITH DIFF 2020-08-11 01:45:00 Best Taylor [facility] URINALYSIS 2020-08-11 01:45:00 Best Taylor [facility] LACTIC ACID WHOLE BLOOD 2020-08-11 01:45:00 Sophie Taylor [facility] COVID-19 (ID NOW RAPID TESTING) 2020-08-11 01:45:00 Best Taylor [facility] CONSENT/REFUSAL FOR DIAGNOSIS AND TREATMENT 2020-08-11 00:12:54 Doctor Unassigned, [place] [facility] XR FOREARM 2 VW LEFT 2020-08-07 14:03:06 Unique Richards [facility] COVID-19 (ID NOW RAPID TESTING) 2020-08-07 13:35:00 Roberto Richards [facility] NOTICE OF PRIVACY PRACTICES 2020-08-07 13:13:25 Doctor Unassigned, [place] [facility] CONSENT/REFUSAL FOR DIAGNOSIS AND TREATMENT 2020-08-07 13:11:06 Doctor Unassigned, [place] [facility] CONSENT/REFUSAL FOR DIAGNOSIS AND TREATMENT 2020-08-07 13:10:57 Doctor Unassigned, [place] [facility] TROPONIN I 2020-07-01 02:03:00 Abdias Robertson [facility] POCT TEST 2020-07-01 00:51:00 Abdias Robertson [facility] URINALYSIS 2020-07-01 00:48:00 Abdias Robertson [facility] CBC WITH DIFF 2020-07-01 00:12:[address] [facility] EXTRA TUBE LT. BLUE 2020-07-01 00:12:00 Abdias Robertson [facility] LIPASE 2020-07-01 00:09:00 Abdias Robertson [facility] TROPONIN I 2020-07-01 00:09:00 Abdias Robertson [facility] BASIC METABOLIC PANEL (NA, K, CL, CO2, GLUCOSE, BUN, CREATININE, CA) 2020-07-01 00:09:00 Jessica Cox Br[place] [facility] ADC,CLC OR LCC ONLY - INFLUENZA A & B DIRECT ANTIGEN 2020-07-01 00:09:00 Jessica [facility] N-TERMINAL PRO-BNP 2020-07-01 00:09:00 Abdias Robertson [facility] XR CHEST 1 VW 2020-07-01 00:07:07 Abdias Robertson [facility] NOTICE OF PRIVACY PRACTICES 2020-06-30 23:27:46 Doctor Unassigned, [place] [facility] CT CERVICAL SPINE WO CONTRAST 2020-06-28 23:12:00 Narayan Narvaez [facility] CONSENT/REFUSAL FOR DIAGNOSIS AND TREATMENT 2020-06-28 21:52:44 Doctor Unassigned, [place] [facility] POCT TEST 2020-06-13 01:50:00 Leeanne Wise [facility] XR CHEST 1 VW 2020-06-13 01:18:17 Leeanne Wise [facility] URINALYSIS 2020-06-13 00:34:00 Mehnaz [facility] COVID-19 (ID NOW RAPID TESTING) 2020-06-13 00:34:00 Leeanne Wise [facility] LIPASE 2020-06-13 00:33:00 [facility] TROPONIN I 2020-06-13 00:33:00 Mehnaz [facility] HEPATIC FUNCTION PANEL (23914) (ALB,T.PRO,BILI T,BU/BC,ALT,AST,ALK PHOS) 2020-06-13 [facility] (NA, K, CL, CO2, GLUCOSE, BUN, CREATININE, CA) 2020-06-13 00:33:00 Mehnaz [facility] CBC WITH DIFF 2020-06-13 00:33:00 Leeanne Wise [facility] D-DIMER 2020-06-13 00:33:00 Candi Wiseala [facility] CONSENT/REFUSAL FOR DIAGNOSIS AND TREATMENT 2020-06-12 23:27:48 Doctor Unassigned, [place] [facility] COVID-19 (ID NOW RAPID TESTING) 2020-05-16 23:50:00 Bushra Rios [facility] LIPASE 2020-05-16 23:21:00 [facility] FUN[facility] (15720) (ALB,T.PRO,BILI T,BU/BC,ALT,AST,ALK PHOS) 2020-05-16 23:21:00 Bushra Rios [facility] BASIC METABOLIC PANEL (NA, K, CL, CO2, GLUCOSE, BUN, CREATININE, CA) 2020-05-16 23:21:00 Bushra Rios [facility] CBC WITH DIFF 2020-05-16 23:21:00 [facility] ACETAMINOPHEN 2020-05-15 07:42:00 Roberto Richards [facility] CT ABDOMEN PELVIS W CONTRAST 2020-05-15 06:56:53 Roberto Richards [facility] CT HEAD WO CONTRAST 2020-05-15 06:56:27 Alberta Richards [facility] POCT TEST 2020-05-15 05:53:00 Alberta Richards [facility] LIPASE 2020-05-15 05:52:00 Roberto Richards [facility] HEPATIC FUNCTION PANEL (65393) (ALB,T.PRO,BILI T,BU/BC,ALT,AST,ALK PHOS) 2020-05-15 05:52:00 Roberto Richards [facility] BASIC METABOLIC PANEL (NA, K, CL, CO2, GLUCOSE, BUN, CREATININE, CA) 2020-05-15 05:52:00 Roberto Richards [facility] ETHANOL 2020-05-15 05:52:00 Roberto Richards [facility] CBC WITH DIFF 2020-05-15 05:52:00 Roberto Richards [facility] PROTHROMBIN TIME / INR 2020-05-15 05:52:00 Jalen Richards [facility] ACTIVATED PARTIAL THRMPLAS MARCIO 2020-05-15 05:52:00 Roberto Richards [facility] URINALYSIS 2020-05-15 05:52:[address] [facility] ADC / LCC - DRUG SCREEN TRIAGE 2020-05-15 05:52:00 Roberto Richards [facility] NOTICE OF PRIVACY PRACTICES 2020-05-15 05:12:38 Doctor Unassigned, [place] [facility] CONSENT/REFUSAL FOR DIAGNOSIS AND TREATMENT 2020-05-15 05:12:26 Doctor Unassigned, [place] [facility] Encounters Start Date/Time End Date/Time Encounter Type Admission Type Attending [facility] Care Facility Care Department Encounter ID Source 2024-05-18 10:30:00 2024-05-18 10:30:00 Outpatient JOANNE MONTES [id number] Kellee Buckley 2024-05-07 18:47:00 2024-05-07 21:36:00 Emergency Saleem Edward [facility] 1.2.840.114 350.1.13.10 4.2.7.2.686 [id number] [facility] 2024-04-22 09:15:00 2024-04-22 09:15:00 Outpatient FARTUN GILLESPIE KELLEE DORMAN [id number] Kellee [facility] 2024-04-15 10:30:00 2024-04-15 10:30:00 Outpatient JYOTI JOANNE DORMAN [id number] [facility] 2024-04-12 00:00:00 2024-04-12 00:00:00 Outpatient MARLINKhris JOANNE DORMAN [id number] Kellee [facility] 2024-04-10 16:20:00 2024-04-10 18:53:00 Emergency ER TAVARES [facility] [id number] [facility] 2024-04-10 16:20:00 2024-04-10 18:53:00 Departed Emergency Room [facility] [facility] [id number] [facility] 2024-04-08 17:37:00 2024-04-08 20:38:00 Emergency Leigh Rojo FL[facility]ULIANE [facility] 1.2.840.114 350.1.13.10 4.2.7.2.686 [id number] [facility] 2024-04-08 00:00:00 2024-04-08 00:00:00 Outpatient JYOTI JOANNE DORMAN [id number] Kellee [facility] 2024-03-12 00:00:00 2024-03-12 00:00:00 Outpatient JOANNE MONTES [id number] Kellee [facility] 2024-03-06 11:00:00 2024-03-06 11:00:00 Outpatient [facility]AN[facility] MONTES [id number] [facility] 2024-02-06 11:00:00 2024-02-06 11:00:00 Outpatient GISELLE OSORIO [id number] Kellee [facility] 2024-02-06 10:40:00 2024-02-06 10:40:00 Outpatient KELLEE DOMRAN [id number] [facility]ellee [facility] 2024-02-06 00:00:00 2024-02-06 00:00:00 Outpatient HUNDL, JOANNE KELLEE DORMAN [id number] Kellee [facility] 2024-02-05 00:00:00 2024-02-05 00:00:00 Outpatient HUNDL, JOANNE DORMAN [id number] Kellee Seybold 2024-01-14 09:30:00 2024-01-14 09:30:00 Outpatient HUNDL, JOANNE DORMAN [id number] Kellee Seybold 2024-01-09 00:00:00 2024-01-09 00:00:00 Outpatient HUNDL, JOANNE KELLEE DORMAN [id number] [facility] 2024-01-06 00:00:00 2024-01-06 00:00:00 Outpatient HUNDL, JOANNE DORMAN [id number] [facility] 2024-01-03 00:00:00 2024-01-03 00:00:00 Outpatient HUNDL, JOANNE KELLEE DORMAN [id number] [facility] 2024-01-02 14:00:00 2024-01-02 14:00:00 Outpatient HUNDL, JOANNE KELLEE DORMAN [id number] Kellee [facility] 2023-12-13 09:30:00 2023-12-13 09:30:00 Outpatient HUNDL, JOANNE DORMAN [id number] Kellee Seybold 2023-12-09 00:00:00 2023-12-09 00:00:00 Outpatient HUNDL, JOANNE DORMAN [id number] Kellee Seybold 2023-12-05 00:00:00 2023-12-05 00:00:00 Outpatient HUNDL, JOANNE DORMAN [id number] Kellee Seybold 2023-12-03 11:45:00 2023-12-03 11:45:00 Outpatient LAB90 KELLEE DORMAN [id number] Kellee Seybold 2023-12-03 11:00:00 2023-12-03 11:00:00 Outpatient JOANNE MONTES [id number] Kellee [facility] 2023-11-26 00:00:00 2023-11-26 00:00:00 Outpatient JOANNE MONTES [id number] Kellee [facility] 2023-10-31 00:00:00 2023-10-31 00:00:00 Outpatient COSMO DORMAN [id number] Kellee [facility] 2023-10-31 00:00:00 2023-10-31 00:00:00 Outpatient COSMO DORMAN [id number] Kellee [facility] 2023-10-29 14:15:00 2023-10-29 14:15:00 Outpatient LEYLA DORMAN [id number] Kellee [facility] 2023-10-29 13:30:00 2023-10-29 13:30:00 Outpatient JOANNE MONTES KELLEE [id number] [facility] 2023-10-10 21:31:00 2023-10-11 00:43:00 Emergency X OLIVIA GARCIA [facility] ERT [id number] [facility] 2023-10-10 21:31:00 2023-10-11 00:43:00 Emergency Karla Garciarita Shankar [facility] 1.2.840.114 350.1.13.10 4.2.7.2.686 [id number] [facility] 2023-08-31 18:02:00 2023-08-31 22:40:00 Emergency ER SHERIDAN [facility] [id number] [facility] 2023-08-31 18:02:00 2023-08-31 22:40:00 emergency [facility] [id number] [id number] 2023-07-01 19:50:00 2023-07-01 22:59:00 Emergency X ROBERTO RICHARDS [facility] ERT [id number] [facility] 2023-07-01 19:50:00 2023-07-01 22:59:00 Emergency Roberto Richards [facility] 1.2.840.114 350.1.13.10 4.2.7.2.686 [id number] [facility] 2023-06-04 23:37:00 2023-06-06 13:30:00 Inpatient ER SHAN BUSCH [facility] [id number] [facility] 2023-06-04 23:37:00 2023-06-06 13:30:00 observatio n encounter [facility] [id number] [facility] [id number] 24 2023-05-11 01:16:00 2023-05-13 17:04:00 Inpatient ER TOM MYLESAR [facility] [id number] [facility] 2023-05-11 01:16:00 2023-05-13 17:04:00 observatio n encounter [facility] [id number] [facility] [id number] 24 2023-05-10 21:48:00 2023-05-10 21:48:00 Emergency ER AN IRIZARRY [facility] [id number] [facility] 2023-05-09 17:40:00 2023-05-09 20:30:00 Emergency X NARAYAN NARVAEZ [facility] ERT [id number] [facility] 2023-05-09 17:40:00 2023-05-09 20:30:00 Emergency Narayan Narvaez [facility] 1.2.840.114 350.1.13.10 4.2.7.2.686 [id number] [facility] 2023-05-05 21:31:00 2023-05-06 03:15:00 Emergency ER SHERIDAN [facility] [id number] [facility] 2023-05-05 21:31:00 2023-05-06 03:15:00 emergency [facility] [id number] 58 2023-04-30 17:18:00 2023-04-30 21:20:00 Emergency X SINGER NARAYAN [facility] ERT [id number] [facility] 2023-04-30 17:18:00 2023-04-30 21:20:00 Emergency Narayan Narvaez [facility] 1.2.840.114 350.1.13.10 4.2.7.2.686 [id number] [facility] 2023-04-16 20:40:00 2023-04-16 23:10:00 Emergency X ROBERTO RICHARDS [facility] ERT [id number] [facility] 2023-04-16 20:40:00 2023-04-16 23:10:00 Emergency Roberto Richards [facility] 1.2.840.114 350.1.13.10 4.2.7.2.686 [id number] [facility] 2023-04-08 17:28:00 2023-04-08 21:20:00 Emergency X Saleem EDWARD [facility] ERT [id number] [facility] 2023-04-08 17:28:00 2023-04-08 21:20:00 Emergency Saleem Edward [facility] 1.2.840.114 350.1.13.10 4.2.7.2.686 [id number] [facility] 2023-03-09 20:23:00 2023-03-10 00:20:00 Emergency X ROBERTO RICHARDS [facility] ERT [id number] [facility] 2023-03-09 20:23:00 2023-03-10 00:20:00 Emergency Roberto Richards [facility] 1.2.840.114 350.1.13.10 4.2.7.2.686 [id number] [facility] 2023-03-01 19:35:00 2023-03-02 01:35:00 Emergency X OLIVIA GARCIA [facility] ERT [id number] [facility] 2023-03-01 19:35:00 2023-03-02 01:35:00 Emergency Olivia Garcia [facility] 1.2.840.114 350.1.13.10 4.2.7.2.686 [id number] [facility] 2023-02-17 22:58:00 2023-02-18 02:22:00 Emergency X BRITTNI PADGETT [facility] ERT [id number] [facility] 2023-02-17 22:58:00 2023-02-18 02:22:00 Emergency Brittni Padgett [facility] 1.2.840.114 350.1.13.10 4.2.7.2.686 [id number] [facility] 2023-02-15 13:46:00 2023-02-17 16:14:00 Outpatient X JESÚS MONTERO [facility] ALTHEA [id number] [facility] 2023-02-15 13:46:00 2023-02-17 16:14:00 Emergency Leeanne Wise Jelani [facility] 1.2.840.114 350.1.13.10 4.2.7.2.686 [id number] [facility] 2022-01-17 10:48:00 2022-01-17 10:48:00 Outpatient CATHIE HOBSON DEMELANIE [facility] [id number] Heather henriquez [facility] 2022-01-09 16:47:00 2022-01-09 20:28:00 Emergency X MELIDA LONGORIA [facility] ERT [id number] [facility] 2022-01-09 16:47:00 2022-01-09 20:28:00 Emergency Melida Longoria [facility] 1.2840.114 350.1.13.10 4.2.7.2.686 [id number] [facility] 2021-12-13 22:16:00 2021-12-14 02:28:00 Emergency X WIL MCQUEEN [facility] ERT [id number] [facility] 2021-12-13 22:16:00 2021-12-14 02:28:00 Emergency Saul Mcqueenn R [facility] 1.2840.114 350.1.13.10 4.2.7.2.686 [id number] [facility] 2021-11-11 19:50:00 2021-11-11 23:17:00 Emergency X DEE WANG [facility] ERT [id number] [facility] 2021-11-11 19:50:00 2021-11-11 23:17:00 Emergency Dee Wang F [facility] 1.2840.114 350.1.13.10 4.2.7.2.686 [id number] [facility] 2021-11-11 00:00:00 2021-11-11 00:00:00 Orders Only Doctor Unassigned, [place] [facility] 1.2840.114 350.1.13.10 4.2.7.2.686 [id number] [facility] 2021-09-11 19:42:00 2021-09-11 23:02:00 Emergency X DEE WANG [facility] ERT [id number] [facility] 2021-09-11 19:42:00 2021-09-11 23:02:00 Emergency Dee Wang [facility] 1.2.840.114 350.1.13.10 4.2.7.2.686 [id number] [facility] 2021-08-14 23:38:00 2021-08-15 02:29:00 Emergency X OLIVIA GARCIA [facility] ERT [id number] [facility] 2021-08-14 23:38:00 2021-08-15 02:29:00 Emergency Olivia Garcia S [facility] 1.2.840.114 350.1.13.10 4.2.7.2.686 [id number] [facility] 2021-05-27 23:23:00 2021-05-28 04:23:00 Emergency X CEM CHOI [facility] ERT [id number] [facility] 2021-05-27 23:23:00 2021-05-28 04:23:00 Emergency Cem Choi [facility] 1.2.840.114 350.1.13.10 4.2.7.2.686 [id number] [facility] 2021-04-10 00:00:00 2021-04-10 00:00:00 Transition of Care Shelley Rosas 1.2.840.114 350.1.13.10 4.2.7.2.686 [id number] [facility] 2021-04-07 16:30:00 2021-04-08 17:45:00 Hospital Encounter Roberto Richards Jelani [facility] 1.2.840.114 350.1.13.10 4.2.7.2.686 [id number] [facility] 2021-04-07 16:18:00 2021-04-07 16:18:00 Emergency X [facility] ERT [id number] [facility] 2021-01-12 03:01:00 2021-01-12 04:56:00 Emergency Narayan Narvaez [facility] 1.2.840.114 350.1.13.10 4.2.7.2.686 [id number] [facility] 2021-01-12 03:01:00 2021-01-12 03:01:00 Emergency X NARAYAN NARVAEZ [facility] ERT [id number] [facility] 2020-12-10 17:12:00 2020-12-10 21:14:00 Emergency Bal Hassan [facility] 1.2.840.114 350.1.13.10 4.2.7.2.686 [id number] [facility] 2020-12-10 17:12:00 2020-12-10 17:12:00 Emergency X BAL HASSAN [facility] ERT [id number] [facility] 2020-12-04 14:50:00 2020-12-04 17:08:00 Emergency Tremaine Becerra [facility] 1.2.840.114 350.1.13.10 4.2.7.2.686 [id number] [facility] 2020-12-04 14:50:00 2020-12-04 17:08:00 Emergency X TREMAINE BECERRA [facility] ERT [id number] [facility] 2020-11-03 20:44:00 2020-11-03 23:34:00 Emergency Leeanne Wise [facility] 1.2.840.114 350.1.13.10 4.2.7.2.686 [id number] [facility] 2020-11-03 20:44:00 2020-11-03 23:34:00 Emergency X LEEANNE WISE [facility] ERT [id number] [facility] 2020-09-19 12:32:00 2020-09-19 14:15:00 Emergency ER [facility] [id number] [facility] 2020-09-17 09:53:00 2020-09-17 11:55:00 Emergency Leeanne Wise [facility] 1.2.840.114 350.1.13.10 4.2.7.2.686 [id number] 2020-09-17 09:53:00 2020-09-17 11:55:00 Emergency Leeanne Wise [facility] 1.2.840.114 350.1.13.10 4.2.7.2.686 [id number] [facility] 2020-09-17 09:53:00 2020-09-17 11:55:00 Emergency X LEEANNE WISE [facility] ERT [id number] [facility] 2020-09-07 00:37:00 2020-09-07 01:41:00 Emergency Saleem Edward [facility] 1.2.840.114 350.1.13.10 4.2.7.2.686 [id number] 2020-09-07 00:37:00 2020-09-07 01:41:00 Emergency Saleem Edward [facility] 1.2.840.114 350.1.13.10 4.2.7.2.686 [id number] [facility] 2020-09-07 00:37:00 2020-09-07 01:41:00 Emergency X Saleem EDWARD [facility] ERT [id number] [facility] 2020-09-07 00:00:00 2020-09-07 00:00:00 Orders Only Doctor Unassigned, [place] [facility] 1.2.840.114 350.1.13.10 4.2.7.2.686 [id number] 2020-09-07 00:00:00 2020-09-07 00:00:00 Orders Only Doctor Unassigned, [place] [facility] 1.2.840.114 350.1.13.10 4.2.7.2.686 [id number] [facility] 2020-08-28 01:59:00 2020-08-28 04:40:00 Emergency Olivia Garcia [facility] 1.2.840.114 350.1.13.10 4.2.7.2.686 [id number] 2020-08-28 01:59:00 2020-08-28 04:40:00 [facility] 1.2.840.114 350.1.13.10 4.2.7.2.686 [id number] [facility] 2020-08-28 01:59:00 2020-08-28 01:59:00 Emergency X OLIVIA GARCIA [facility] ERT [id number] [facility] 2020-08-14 11:48:00 2020-08-14 13:42:00 Emergency Best Taylor [facility] 1.2.840.114 350.1.13.10 4.2.7.2.686 [id number] 2020-08-14 11:48:00 2020-08-14 13:42:00 Emergency Best Taylor [facility] 1.2.840.114 350.1.13.10 4.2.7.2.686 [id number] [facility] 2020-08-14 11:33:00 2020-08-14 11:33:00 Emergency X BEST TAYLOR [facility] ERT [id number] [facility] 2020-08-10 18:35:00 2020-08-11 00:05:00 Emergency Best Taylor [facility] 1.2.840.114 350.1.13.10 4.2.7.2.686 [id number] 2020-08-10 18:35:00 2020-08-11 00:05:00 Emergency Best Taylor [facility] 1.2.840.114 350.1.13.10 4.2.7.2.686 [id number] [facility] 2020-08-10 18:35:00 2020-08-11 00:05:00 Emergency X LUIS E GARCIAYEFRI [facility] ERT [id number] [facility] 2020-08-07 07:19:00 2020-08-07 09:02:00 Emergency Maurice [facility] 1.2.840.114 350.1.13.10 4.2.7.2.686 [id number] 2020-08-07 07:19:00 2020-08-07 09:02:00 [facility].2.840.114 350.1.13.10 4.2.7.2.686 [id number] [facility] 2020-08-07 07:12:00 2020-08-07 07:12:00 Emergency X [facility] ERT [id number] [facility] 2020-08-07 00:00:00 2020-08-07 00:00:00 Orders Only Doctor Unassigned, [place] [facility] 1.2.840.114 350.1.13.10 4.2.7.2.686 [id number] 2020-08-07 00:00:00 2020-08-07 00:00:00 Orders Only Doctor Unassigned, [place] [facility] 1.2.840.114 350.1.13.10 4.2.7.2.686 [id number] [facility] 2020-07-01 00:00:00 2020-07-01 00:00:00 Letter (Out) [facility] 1.2.840.114 350.1.13.10 4.2.7.2.686 [id number] 2020-07-01 00:00:00 2020-07-01 00:00:00 Letter (Out) [facility] 1.2.840.114 350.1.13.10 4.2.7.2.686 [id number] [facility] 2020-06-30 17:46:00 2020-06-30 21:06:00 Emergency Abdias Robertson [facility] 1.2.840.114 350.1.13.10 4.2.7.2.686 [id number] 2020-06-30 17:46:00 2020-06-30 21:06:00 Emergency Jessica Cox Bransongina [facility] 1.2.840.114 350.1.13.10 4.2.7.2.686 [id number] [facility] 2020-06-30 17:46:00 2020-06-30 21:06:00 Emergency X ABDIAS ROBERTSON [facility] ERT [id number] [facility] 2020-06-28 16:00:00 2020-06-28 18:08:00 Emergency Singer [facility] 1.2.840.114 350.1.13.10 4.2.7.2.686 [id number] 2020-06-28 16:00:00 2020-06-28 18:08:00 Emergency Singer [facility] 1.2.840.114 350.1.13.10 4.2.7.2.686 [id number] [facility] 2020-06-28 16:00:00 2020-06-28 16:00:00 Emergency X NARAYAN NARVAEZ [facility] ERT [id number] [facility] 2020-06-14 00:00:00 2020-06-14 00:00:00 [facility] 1.2.840.114 350.1.13.10 4.2.7.2.686 [id number] 2020-06-14 00:00:00 2020-06-14 00:00:00 Telephone [facility] 1.2.840.114 350.1.13.10 4.2.7.2.686 [id number] [facility] 2020-06-12 17:40:00 2020-06-12 22:05:00 Emergency Leeanne Wise [facility] 1.2.840.114 350.1.13.10 4.2.7.2.686 [id number] [id number] 2020-06-12 17:40:00 2020-06-12 22:05:00 Emergency Leeanne Wise [facility] 1.2.840.114 350.1.13.10 4.2.7.2.686 [id number] [facility] 2020-06-12 17:28:00 2020-06-12 17:28:00 Emergency X [facility] ERT [id number] [facility] 2020-05-16 17:10:00 2020-05-16 19:01:00 Emergency Bushra Rios [facility] 1.2.840.114 350.1.13.10 4.2.7.2.686 [id number] 2020-05-16 17:10:00 2020-05-16 19:01:00 Emergency Bushra Rios [facility] 1.2.840.114 350.1.13.10 [id number] [facility] 2020-05-16 17:10:00 2020-05-16 17:10:00 Emergency X BUSHRA RIOS [facility] ERT [id number] [facility] 2020-05-14 23:18:00 2020-05-15 02:54:00 Emergency Roberto Richards [facility] [id number] [id number] 2020-05-14 23:18:00 2020-05-15 02:54:00 Emergency Roberto Richards [facility] [id number] [facility] 2020-05-14 23:14:00 2020-05-14 23:14:00 Emergency X ROBERTO RICHARDS [facility] ERT [id number] [facility] 2009-07-18 05:35:00 2009-07-18 09:19:00 Emergency ER [facility] [id number] [facility] 2008-10-08 09:55:00 2008-10-08 14:19:00 Emergency ER GUMARO ALVAREZ [facility] [id number] [facility] 2008-03-26 15:21:00 2008-03-26 18:08:00 Emergency ER NEIL [facility] [id number] [facility] 2005-05-25 06:35:00 2005-05-25 06:35:00 Outpatient LISA LUNA [facility] [id number] [facility] 2005-05-16 21:57:00 2005-05-16 23:40:00 Emergency ER [facility]W [facility] [id number] [facility] 2005-04-24 18:49:00 2005-04-24 22:40:00 Emergency ER [facility] [id number] [facility] 2004-12-27 20:30:00 2004-12-28 01:40:00 Emergency ER SANIA SIBLEY [facility] [id number] [facility] 2003-12-07 22:40:00 2003-12-08 02:48:00 Emergency ER GINA MARTIN [facility] [id number] [facility] 2003-12-06 13:57:00 2003-12-06 18:30:00 Emergency ER YIN RIOS [facility] [id number] [facility] 2003-08-31 19:43:00 2003-08-31 22:55:00 Emergency ER GUMARO [facility]Z [facility] [id number] [facility] 2003-08-22 19:26:00 2003-08-22 22:10:00 Emergency ER ALBERTO [facility] [id number] [facility] 2002-01-30 22:41:00 2002-01-31 01:29:00 Emergency ER [facility] [place] [id number] [facility] 2001-10-28 09:15:00 2001-10-28 11:25:00 Emergency ER [facility] [id number] [facility] 2001-04-15 19:14:00 2001-04-15 23:10:00 Emergency ER [facility] [id number] [facility] 2000-12-25 21:52:00 2000-12-26 00:15:00 Emergency ER [facility] [id number] [facility] 2000-12-23 18:51:00 2000-12-23 22:00:00 Emergency ER [facility] [id number] [facility] 1999-10-26 21:11:00 1999-10-27 00:20:00 Emergency ER [facility] [id number] [facility] Results Test Description Test Time Test Comments Results Result Co mments Source [facility] (59732)2024-05-08 01:19:56* Test Item Value Reference Range Interpretation Comme nts NA (test code = 6371578081) 139 mmol/L 135-145 K (test code = 0947507624) 3.3 mmol/L 3.5-5.0 L CL (test code = 5605250276) 107 mmol/L 98-108 CO2 TOTAL (test code = 8957165759) 22 mmol/L 23-31 L AGAP (test code = 2098255248) 10 2-16 BUN (test code = 5762733783) 5 mg/dL 7-23 L GLUCOSE (test code = 3297448935) 131 mg/dL 70-110 H CREATININE (test code = 2160-0) 0.72 mg/dL 0.50-1.04 TOTAL BILI (test code = 4121580206) 0.1-1.1 L CALCIUM (test code = 3880327771) 9.3 mg/dL 8.6-10.6 T PROTEIN (test code = 5381002430) 7.0 g/dL 6.3-8.2 ALBUMIN (test code = 8297960262) 4.1 g/dL 3.5-5.0 ALK PHOS (test code = 0639853742) 76 U/L 34-122 ALTv (test code = 1742-6) 27 U/L 5-35 AST(SGOT) (test code = 3448392392) 30 U/L 13-40 eGFR (test code = 75180-8) 105.2 mL/min/1.73m2 CKD-EPI eGFR (2020). Assuming creatinine has been stable day-to-day for at least three months, the eGFR indicates Category G1 (>= 90 mL/min/1.73 m2) Lab Interpretation (test code = 82344-4) [facility]normal [facility] G2440-87-08 01:18:54* Test Item Value Reference Range Interpretation Comme nts TROPONIN I (test code = 1454521253) 0.003 ng/mL <=0.034 DARWIN (test code = DARWIN) [...] of biotin. Lab Interpretation (test code = 13677-6) Normal [facility] Hospital[facility]esium2024-11-01 01:07:50* Test Item Value Reference Range Interpretation Comme nts MAGNESIUM (test code = 3058139158) 1.7 mg/dL 1.7-2.4 Lab Interpretation (test cod e = 85835-5) Normal [facility] Hospital[facility]ase2024-11-01 01:07:30* Test Item Value Reference Range Interpretation Comme nts LIPASE (test code = 5975031037) 97 U/L 0-220 Lab Interpretation (test cod e = 98558-9) Normal [facility] HospitalCbc with Vjoi0009-27-59 00:51:30* Test Item Value Reference Range Interpretation Comme nts WBC (test code = 6690-2) 11.46 4.30-11.10 H RBC (test code = 789-8) 5.14 3.93-5.25 HGB (test code = 718-7) 13.8 g/dL 11.6-15.0 HCT (test code = 4544-3) 41.6 % 35.7-45.2 MCV (test code = 787-2) 80.9 fL 80.6-95.5 MCH (test code = 785-6) 26.8 pg 25.9-32.8 MCHC (test code = 786-4) 33.2 g/dL 31.6-35.1 RDW-SD (test code = 81048-2) 43.6 fL 39.0-49.9 RDW-CV (test code = 788-0) 14.8 % 12.0-15.5 PLT (test code = 777-3) 382 166-358 H MPV (test code = 79546-0) 9.7 fL 9.5-12.9 NRBC/100 WBC (test code = 0303231771) 0.0 0.0-10.0 NRBC x10^3 (test code = 4479810854) See_Comment [Automated messa ge] The system which generated this result transmitted reference range: 10*3/?L. The reference range was not used to interpret this result as normal/abnormal. GRAN MAT (NEUT) % (test code = 770-8) 63.3 % IMM GRAN % (test code = 9050253945) 0.40 % LYMPH % (test code = 736-9) 27.5 % MONO % (test code = 5905-5) 5.4 % EOS % (test code = 713-8) 2.9 % BASO % (test code = 706-2) 0.5 % GRAN MAT x10^3(ANC) (test code = 2858884786) 7.25 10*3/uL 1.88-7.09 H IMM GRAN x10^3 (test code = 4292587844) 0.05 10*3/uL 0.00-0.06 LYMPH x10^3 (test code = 731-0) 3.15 10*3/uL 1.32-3.29 MONO x10^3 (test code = 742-7) 0.62 10*3/uL 0.33-0.92 EOS x10^3 (test code = 711-2) 0.33 10*3/uL 0.03-0.39 BASO x10^3 (test code = 704-7) 0.06 10*3/uL 0.01-0.07 Lab Interpretation (test code = 54976-0) Abnormal [facility] or plasma cardiac troponin I panel by high sensitivity xifpui9054-87-79 17:16:00* Test Item Value Reference Range Interpretation Comme nts Troponin T High Sensitivity (test code = 91849-9) < 6.[address] [facility] [place] CtrSerum or plasma glucose measurement (mass/volume) 2024-04-10 17:14:00* Test Item Value Reference Range Interpretation Comme nts Random Glucose (test code = 2345-7) [address] [facility] [place] CtrSerum or plasma urea nitrogen measurement (mass/volume)2024-04-10 17:14:00* Test Item Value Reference Range Interpretation Comme nts Blood Urea Nitrogen (test co de = 3094-0) [address] [facility] [place] BwoYGB3404-31-54 17:14:00* Test Item Value Reference Range Interpretation Comme nts Aspartate Amino Transf (AST/ SGOT) (test code = JYF8876) [address] [facility] [place] CtrBilirubin zitzv1043-09-69 17:14:00* Test Item Value Reference Range Interpretation Comme nts Total Bilirubin (test code = FSB6501) < 0.[address] [facility] [place] CtrEstimated glomerular filtration rate (GFR) rloyhvqktmyvi9853-44-53 17:14:00* Test Item Value Reference Range Interpretation Comme [facility] Glomerular Filtration Rate C alc (test code = 583733109) > 60.[address] [facility] [place] CtrBUN/creatinine hmnln0115-89-61 17:14:00* Test Item Value Reference Range Interpretation Comme [facility] BUN/Creatinine Ratio (test c ode = 07156363) 7.[address] [facility] [place] [place] FlyOI01090-36-16 17:14:00* Test Item Value Reference Range Interpretation Comme nts Carbon Dioxide Level (test c ode = 60178275) [address] [facility] [place] CtrAnion gap fxrerhwumyj8396-43-16 17:14:00* Test Item Value Reference Range Interpretation Comme nts Anion Gap (test code = 68680259) 16.[address] [facility] [place] CtrCalcium swqyg9802-20-02 17:14:00* Test Item Value Reference Range Interpretation Comme nts Calcium Level (test code = 79361255) 9.[address] [facility] [place] CtrGlobulin njf1269-86-66 17:14:00* Test Item Value Reference Range Interpretation Comme nts Globulin (test code = 842813908) 3.[address] [facility] [place] CtrALT (SGPT) ser/csky4165-86-44 17:14:00* Test Item Value Reference Range Interpretation Comme nts Alanine Aminotransferase (AL T/SGPT) (test code = 1742-6) [address] [facility] [place] CtrAmylase yffgz0002-98-81 17:14:00* Test Item Value Reference Range Interpretation Comme nts Amylase Level (test code = 1798-8) [address] [facility] [place] UylGqblyb9906-13-26 17:14:00* Test Item Value Reference Range Interpretation Comme nts Lipase (test code = 08082438) [address] [facility] [place] CtrALP ser/ovgd0047-25-07 17:14:00* Test Item Value Reference Range Interpretation Comme nts Total Alkaline Phosphatase ( test code = 6768-6) [address] [facility] [place] CtrUrine hydrocodone measurement (mass/volume) 2024-04-10 17:13:00* Test Item Value Reference Range Interpretation Comme nts Hydrocodone Level (test code = 3681-4) NEGATIVE [facility] [place] CtrUrine fentanyl measurement by confirmatory method (mass/volume)2024-04-10 17:13:00* Test Item Value Reference Range Interpretation Comme nts Urine Fentanyl Screen (test code = 49961-4) NEGATIVE [facility] [place] CtrPhencyclidine (PCP) jc1594-66-08 17:13:00* Test Item Value Reference Range Interpretation Comme nts Urine Phencyclidine (PCP) [place] edil[place] (test code = 321162891) NEGATIVE [facility] [place] [place] CtrPropoxyphene [Mass/volume] in Hoyvm2715-13-74 17:13:00* Test Item Value Reference Range Interpretation Comme nts Propoxyphene Level (test cod e = 3545-1) NEGATIVE [facility] [place] CtroxyCODONE [Mass/volume] in Ngjja8303-24-16 17:13:00* Test Item Value Reference Range Interpretation Comme nts Oxycodone Level (test code = 45131-1) NEGATIVE [facility] [place] CtrAmphetamine ur vrkgkn2419-71-47 17:13:00* Test Item Value Reference Range Interpretation Comme nts Urine Amphetamines Screen (t est code = 22538-1) NEGATIVE [facility] [place] DgsLlcefpxlm1925-98-56 17:13:00* Test Item Value Reference Range Interpretation Comme nts Methadone Level (test code = GBC4955) NEGATIVE [facility] [place] CtrBenzodiazepines screen rb7189-39-86 17:13:00* Test Item Value Reference Range Interpretation Comme [facility] Urine Benzodiazepines Screen (test code = 498767214) POSITIVE [facility] [place] [place] CtrCannabinoids (1-twrxyri-LDI) aobeyefkscz0057-49-95 17:13:00* Test Item Value Reference Range Interpretation Comme [facility] Urine Cannabinoids (test cod e = 367521376) NEGATIVE [facility] [place] [place] CtrCocaine metabolite xyxoll1430-37-40 17:13:00* Test Item Value Reference Range Interpretation Comme [facility] Urine Cocaine Metabolite (te st code = 885725589) NEGATIVE [facility] [place] [place] CtrOpiates firwf9824-89-46 17:13:00* Test Item Value Reference Range Interpretation Comme [facility] Urine Opiates Screen (test c ode = 551000093) NEGATIVE [facility] [place] CtrUrine leukocyte esterase qjuwtbqga7437-25-38 17:10:00* Test Item Value Reference Range Interpretation Comme [facility] Urine Leukocyte Esterase (te st code = 005137508) 3+ [facility] [place] [place] CtrRBC count ur higa4310-23-43 17:08:00* Test Item Value Reference Range Interpretation Comme [facility] Urine RBC (test code = 798-9) 0-[address] [facility] [place] CtrUrine examination for white blood cells (WBC) 2024-04-10 17:08:00* Test Item Value Reference Range Interpretation Comme [facility] Urine WBC (test code = 006050862) >[address] [facility] [place] CtrAutomated epithelial cells count in urine sediment (number/area)2024-04-10 17:08:00* Test Item Value Reference Range Interpretation Comme [facility] Urine Epithelial Cells (test code = 71049-3) 6-[address] [facility] [place] CtrBacteria detection in urine sediment by light fqwrznvebx6824-59-60 17:08:00* Test Item Value Reference Range Interpretation Comme [facility] Urine Bacteria (test code = 82209-6) Few [facility] [place] CtrUrine casts detection by automated method 2024-04-10 17:08:00* Test Item Value Reference Range Interpretation Comme nts Urine Casts (test code = 51623-5) 0-[address] [facility] [place] CtrHCG ur TG1510-56-14 17:03:00* Test Item Value Reference Range Interpretation Comme nts Urine HCG, Qualitative (test code = 2106-3) NEGATIVE [facility] [place] CtrColor of Urine by Rfzv5413-91-25 17:03:00* Test Item Value Reference Range Interpretation Comme nts Urine Color (test code = 51449-3) Yellow [facility] [place] [place] CtrAppearance of Nvfqf9632-37-16 17:03:00* Test Item Value Reference Range Interpretation Comme nts Urine Appearance (test code = 5767-9) Cloudy [facility] [place] CtrUrine glucose ktuyxykix3814-69-93 17:03:00* Test Item Value Reference Range Interpretation Comme nts Urine Glucose (UA) (test cod e = 2349-9) Negative [facility] [place] [place] CtrBilirubin uk8998-43-00 17:03:00* Test Item Value Reference Range Interpretation Comme nts Urine Bilirubin (test code = 338738151) Negative [facility] [place] [place] CtrKetones ly9158-51-73 17:03:00* Test Item Value Reference Range Interpretation Comme nts Urine Ketones (test code = 90810271) Negative [facility] [place] CtrSpecific gravity of Urine by Automated test strip 2024-04-10 17:03:00* Test Item Value Reference Range Interpretation Comme nts Urine Specific [place] (test code = 65813-4) 1.[address] [facility] [place] CtrUrine blood mfojdtipm7504-37-91 17:03:00* Test Item Value Reference Range Interpretation Comme nts Urine Blood (test code = 20184-8) Nonhemolyzed Trace [facility] [place] [place] CtrpH sp5797-09-72 17:03:00* Test Item Value Reference Range Interpretation Comme nts Urine pH (test code = 2756-5) 6.[address] [facility] [place] [place] CtrProtein xo0732-82-56 17:03:00* Test Item Value Reference Range Interpretation Comme nts Urine Protein (test code = 30387711) Negative [facility] [place] [place] CtrUrobilinogen, urine, [id number] 17:03:00* Test Item Value Reference Range Interpretation Comme [facility] Urine Urobilinogen (test cod e = 217932600) 0.[address] [facility] [place] CtrUrine nitrate zjnijfmzm1763-30-48 17:03:00* Test Item Value Reference Range Interpretation Comme [facility] Urine Nitrate (test code = 28775-5) Negative [facility] [place] [place] CtrAbsolute eosinophil hlgtl6526-30-73 17:00:00* Test Item Value Reference Range Interpretation Comme nts Eosinophils # (Auto) (test c ode = MXI3678) 0.[address] [facility] [place] [place] CtrRBC jseek9798-04-61 17:00:00* Test Item Value Reference Range Interpretation Comme [facility] Red Blood Count (test code = 26882277) 5.[address] [facility] [place] ZglEqnwzueten8835-10-74 17:00:00* Test Item Value Reference Range Interpretation Comme [facility] Hematocrit (test code = 23574520) 41.[address] [facility] [place] [place] CtrMCV (mean corpuscular volume) determination 2024-04-10 17:00:00* Test Item Value Reference Range Interpretation Comme [facility] Mean Corpuscular Volume (shailesh t code = 83352-6) 81.[address] [facility] [place] [place] CtrMean corpuscular hemoglobin (MCH) determination 2024-04-10 17:00:00* Test Item Value Reference Range Interpretation Comme [facility] Mean Corpuscular Hemoglobin (test code = 69994223) 26.1 [facility] concentration (MCHC) snsmtsbxrjyon3291-26-85 17:00:00* Test Item Value Reference Range Interpretation Comme [facility] Mean Corpuscular Hemoglobin Concent (test code = 54152974) 32.[address] [facility] [place] [place] CtrRBC distribution width coefficient of variation 2024-04-10 17:00:00* Test Item Value Reference Range Interpretation Comme [facility] Red Cell Distribution Width (test code = 27172216) 15.[address] [facility] [place] CtrPlatelet mzaug9691-22-00 17:00:00* Test Item Value Reference Range Interpretation Comme [facility] Platelet Count (test code = 69498247) [address] [facility] [place] [place] CtrMean platelet jfjazf6483-13-24 17:00:00* Test Item Value Reference Range Interpretation Comme nts Mean Platelet Volume (test c ode = 10160766) 9.[address] [facility] [place] CtrNeutrophils seg % cvh4690-58-40 17:00:00* Test Item Value Reference Range Interpretation Comme nts Neutrophils (%) (Auto) (test code = 79801-3) 71.[address] [facility] [place] [place] CtrAbsolute immature granulocyte mzugg3615-43-18 17:00:00* Test Item Value Reference Range Interpretation Comme nts Absolute Immature Granulocyt e (auto (test code = 49675-7) 0.[address] [facility] [place] CtrBlood band neutrophils count (number/volume) 2024-04-10 17:00:00* Test Item Value Reference Range Interpretation Comme nts Neutrophils # (Auto) (test c ode = 62840-3) 8.[address] [facility] [place] CtrAbsolute lymphocyte plcff6895-63-59 17:00:00* Test Item Value Reference Range Interpretation Comme nts Lymphocytes # (Auto) (test c ode = 32416-2) 2.42 [facility] basophil kerrl9826-35-43 17:00:00* Test Item Value Reference Range Interpretation Comme nts Basophils # (Auto) (test cod e = 00802930) 0.03 [facility] NRBC ceudx6148-05-22 17:00:00* Test Item Value Reference Range Interpretation Comme nts Nucleated Red Blood Cells # (test code = 614086476) [address] [facility] [place] [place] CtrCT ABDOMEN PELVIS WO PALBPUQO9835-57-77 00:27:38 Ordering Physician: LEIGH ROJO Clinical indication: Nausea and vomiting Comparison: October 10, 2023. Technique: CT abdomen and pelvis without intravenous contrast. Thisexamination was performed according to ALARA principles. Technical quality: Adequate Findings: The patient is status post cholecystectomy. The liver, spleen, pancreas,and right adrenal gland are unremarkable. A left adrenal nodule is againnoted. On today's noncontrast and, the nodule measures less than 1Hounsfield unit, indicative of adenoma. No renal abnormalities are evident.Evaluation of the stomach is limited by lack of distention, but no grossgastric abnormalities are apparent. There is atherosclerotic calcificationof the abdominal aorta and its branches, with no evidence of aneurysm. There is a lobular uterine contour, likely reflecting leiomyomas. Theurinary bladder is unremarkable in appearance. There is no evidence ofcolitis. A normal appendix is identified. There is no bowel distention.There is no free intraperitoneal fluid or free intraperitoneal air. Theincluded lung bases are clear. There are degenerative changes of the spine.Multilevel lumbar central canal stenosis is present.[facility] Metabolic Lixgq0591-00-62 23:13:34* Test Item Value Reference Range Interpretation Comme nts NA (test code = 0146679335) 136 mmol/L 135-145 K (test code = 0703496513) 3.7 mmol/L 3.5-5.0 CL (test code = 4990166526) 106 mmol/L 98-108 CO2 TOTAL (test code = 5243068513) 20 mmol/L 23-31 L AGAP (test code = 5506412029) 10 2-16 BUN (test code = 8218893411) 6 mg/dL 7-23 L GLUCOSE (test code = 7193825609) 149 mg/dL 70-110 H CREATININE (test code = 2160-0) 0.63 mg/dL 0.50-1.04 TOTAL BILI (test code = 2087274573) 0.3 mg/dL 0.1-1.1 CALCIUM (test code = 7786567696) 9.2 mg/dL 8.6-10.6 T PROTEIN (test code = 8766496564) 7.4 g/dL 6.3-8.2 ALBUMIN (test code = 3303113935) 4.3 g/dL 3.5-5.0 ALK PHOS (test code = 2409751958) 74 U/L 34-122 ALTv (test code = 1742-6) 20 U/L 5-35 AST(SGOT) (test code = 4440010528) 22 U/L 13-40 eGFR (test code = 45691-0) 111.6 mL/min/1.73m2 CKD-EPI eGFR (2020). Assuming creatinine has been stable day-to-day for at least three months, the eGFR indicates Category G1 (>= 90 mL/min/1.73 m2) Lab Interpretation (test code = 61179-2) Abnormal [facility] HospitalLip[facility], Nneqf6178-18-26 23:12:53* Test Item Value Reference Range Interpretation Comme nts LIPASE (test code = 7201399423) 104 U/L 0-220 Lab Interpretation (test cod e = 93272-1) Normal [facility] HospitalPOCT Fggb6785-32-26 23:01:00* Test Item Value Reference Range Interpretation Comme nts POCT PREG (test code = 1605) Negative On board controls acceptable with C Line (test code = 3574) Yes POCT PREG LOT # (test code = 3575) [id number] POCT PREG TEST DATE ( test code = 3576) Lab Interpretation (test cod e = 53464-7) Normal [facility] HospitalCBC with Gxisxnnypiqa0306-07-36 23:00:31* Test Item Value Reference Range Interpretation Comme nts WBC (test code = 6690-2) 13.56 4.30-11.10 H RBC (test code = 789-8) 5.04 3.93-5.25 HGB (test code = 718-7) 13.6 g/dL 11.6-15.0 HCT (test code = 4544-3) 41.2 % 35.7-45.2 MCV (test code = 787-2) 81.7 fL 80.6-95.5 MCH (test code = 785-6) 27.0 pg 25.9-32.8 MCHC (test code = 786-4) 33.0 g/dL 31.6-35.1 RDW-SD (test code = 12773-7) 45.5 fL 39.0-49.9 RDW-CV (test code = 788-0) 15.3 % 12.0-15.5 PLT (test code = 777-3) 370 166-358 H MPV (test code = 27510-2) 9.3 fL 9.5-12.9 L NRBC/100 WBC (test code = 1313581644) 0.0 0.0-10.0 NRBC x10^3 (test code = 0141128654) See_Comment [Automated messa ge] The system which generated this result transmitted reference range: 10*3/?L. The reference range was not used to interpret this result as normal/abnormal. GRAN MAT (NEUT) % (test code = 770-8) 71.8 % IMM GRAN % (test code = 4697485143) 0.60 % LYMPH % (test code = 736-9) 20.9 % MONO % (test code = 5905-5) 4.9 % EOS % (test code = 713-8) 1.4 % BASO % (test code = 706-2) 0.4 % GRAN MAT x10^3(ANC) (test code = 5180943362) 9.75 10*3/uL 1.88-7.09 H IMM GRAN x10^3 (test code = 0724795815) 0.08 10*3/uL 0.00-0.06 H LYMPH x10^3 (test code = 731-0) 2.83 10*3/uL 1.32-3.29 MONO x10^3 (test code = 742-7) 0.66 10*3/uL 0.33-0.92 EOS x10^3 (test code = 711-2) 0.19 10*3/uL 0.03-0.39 BASO x10^3 (test code = 704-7) 0.05 10*3/uL 0.01-0.07 Lab Interpretation (test code = 73639-4) Abnormal [facility] HospitalCT ABDOMEN PELVIS W VHKKXUTU9961-97-35 05:07:16ORDERING PHYSICIAN:OLIVIA MUSA CLINICAL INFORMATION: ? Abdominal pain, [...] no bowel obstruction. Appendix is normal. No freeintraperitonealair or fluid are present. No pathologically enlarged lymph nodes are seenin the abdomen or pelvis. 2.1 cm cyst is seen in the left adnexal region.No free intraperitoneal air or fluid are present. No pathologicallyenlarged lymph nodes are seen. Lung bases are clear. There are nosuspicious focal osseous lesions.[facility] Complete Metabolic Ikcmj0407-10-21 04:38:59* Test Item Value Reference Range Interpretation Comme nts NA (test code = 4790731036) 138 mmol/L 135-145 K (test code = 5841409046) 3.7 mmol/L 3.5-5.0 CL (test code = 5251193488) 108 mmol/L 98-108 CO2 TOTAL (test code = 4222236540) 22 mmol/L 23-31 L AGAP (test code = 0282522102) 8 2-16 BUN (test code = 9790737878) 12 mg/dL 7-23 GLUCOSE (test code = 5227892430) 98 mg/dL 70-110 CREATININE (test code = 2160-0) 0.62 mg/dL 0.50-1.04 TOTAL BILI (test code = 8060798278) 0.4 mg/dL 0.1-1.1 CALCIUM (test code = 5773689202) 8.9 mg/dL 8.6-10.6 T PROTEIN (test code = 3731929876) 7.1 g/dL 6.3-8.2 ALBUMIN (test code = 0055863903) 3.8 g/dL 3.5-5.0 ALK PHOS (test code = 7047858949) 89 U/L 34-122 ALTv (test code = 1742-6) 17 U/L 5-35 AST(SGOT) (test code = 6501562830) 22 U/L 13-40 eGFR (test code = 78538-4) 112.8 mL/min/1.73m2 CKD-EPI eGFR (2020). Assuming creatinine has been stable day-to-day for at least three months, the eGFR indicates Category G1 (>= 90 mL/min/1.73 m2) Lab Interpretation (test code = 77309-7) Abnormal [facility] HospitalLip[facility], Dxikv2489-11-84 04:38:58* Test Item Value Reference Range Interpretation Comme nts LIPASE (test code = 6838966554) 136 U/L 0-220 Lab Interpretation (test cod e = 60749-0) Normal [facility] HospitalCB with Qjlczsgbozhq3452-13-37 04:19:14* Test Item Value Reference Range Interpretation [...] 32.2 g/dL 31.6-35.1 RDW-SD (test code = 22443-5) 50.2 fL 39.0-49.9 H RDW-CV (test code = 788-0) 17.3 % 12.0-15.5 H PLT (test code = 777-3) 377 166-358 H MPV (test code = 54522-8) 9.4 fL 9.5-12.9 L NRBC/100 WBC (test code = 6466574875) 0.0 0.0-10.0 NRBC x10^3 (test code = 0818606359) See_Comment [Automated messa ge] The system which generated this result transmitted reference range: 10*3/?L. The reference range was not used to interpret this result as normal/abnormal. GRAN MAT (NEUT) % (test code = 770-8) 65.3 % IMM GRAN % (test code = 5494003905) 0.40 % LYMPH % (test code = 736-9) 26.1 % MONO % (test code = 5905-5) 6.2 % EOS % (test code = 713-8) 1.6 % BASO % (test code = 706-2) 0.4 % GRAN MAT x10^3(ANC) (test code = 9143671295) 7.33 10*3/uL 1.88-7.09 H IMM GRAN x10^3 (test code = 3018956449) 0.04 10*3/uL 0.00-0.06 LYMPH x10^3 (test code = 731-0) 2.93 10*3/uL 1.32-3.29 MONO x10^3 (test code = 742-7) 0.70 10*3/uL 0.33-0.92 EOS x10^3 (test code = 711-2) 0.18 10*3/uL 0.03-0.39 BASO x10^3 (test code = 704-7) 0.05 10*3/uL 0.01-0.07 Lab Interpretation (test code = 14409-2) Abnormal [facility] [id number] 03:40:00* Test Item Value Reference Range Interpretation Comme nts POCT PREG (test code = 1605) Negative On board controls acceptable with C Line (test code = 3574) Yes POCT PREG LOT # (test code = 3575) [id number] POCT PREG TEST DATE ( test code = 357) 2024-10-13 Lab Interpretation (test cod e = 95177-3) [facility] [id number] 04:35:04Ordering physician: ROBERTO RICHARDS INDICATION: Abdominal pain COMPARISON: CT of the abdomen and pelv is dated 03/09/2023 FINDINGS: Supine AP view of the abdomen and pelvis. There is no bowelobstruction or generalized constipation.[facility] [id number] 02:30:00* Test Item Value Reference Range Interpretation Comme nts POCT PREG (test code = 1605) Negative On board controls acceptable with C Line (test code = 3574) Yes POCT PREG LOT # (test code = 3575) [id number] POCT PREG TEST DATE ( test code = 3576) 2024-09-15 Lab Interpretation (test cod e = 63973-9) [id number] 00:05:06* Test Item Value Reference Range Interpretation [...] 34.2 g/dL 31.6-35.1 RDW-SD (test code = 39293-8) 41.5 fL 39.0-49.9 RDW-CV (test code = 788-0) 14.5 % 12.0-15.5 PLT (test code = 777-3) 384 See_Comment H [Automated messa ge] The system which generated this result transmitted reference range: 166 - 358 10*3/?L. The reference range was not used to interpret this result as normal/abnormal. MPV (test code = 58442-5) 9.6 fL 9.5-12.9 GRAN MAT (NEUT) % (test code = 770-8) 66.0 % IMM GRAN % (test code = 7009567038) 0.50 % LYMPH % (test code = 736-9) 27.4 % MONO % (test code = 5905-5) 4.6 % EOS % (test code = 713-8) 1.1 % BASO % (test code = 706-2) 0.4 % GRAN MAT x10^3(ANC) (test code = 2300818415) 7.96 10*3/uL 1.88-7.09 H IMM GRAN x10^3 (test code = 1723259893) 0.06 10*3/uL 0.00-0.06 LYMPH x10^3 (test code = 731-0) 3.30 10*3/uL 1.32-3.29 H MONO x10^3 (test code = 742-7) 0.56 10*3/uL 0.33-0.92 EOS x10^3 (test code = 711-2) 0.13 10*3/uL 0.03-0.39 BASO x10^3 (test code = 704-7) 0.05 10*3/uL 0.01-0.07 Lab Interpretation (test code = 18246-7) [facility]OL[facility] (33840)2023-05-09 23:27:13* Test Item Value Reference Range Interpretation Comme nts NA (test code = 3013276235) 137 mmol/L 135-145 K (test code = 8838298377) 3.3 mmol/L 3.5-5.0 L CL (test code = 5990611805) 103 mmol/L 98-108 CO2 TOTAL (test code = 1898596509) 20 mmol/L 23-31 L AGAP (test code = 1622118626) 14 2-16 BUN (test code = 2703071777) 5 mg/dL 7-23 L GLUCOSE (test code = 5449285269) 146 mg/dL 70-110 H CREATININE (test code = 6899921985) 0.60 mg/dL 0.50-1.04 TOTAL BILI (test code = 0259973859) 0.3 mg/dL 0.1-1.1 CALCIUM (test code = 8701550669) 9.3 mg/dL 8.6-10.6 T PROTEIN (test code = 2585987477) 7.9 g/dL 6.3-8.2 ALBUMIN (test code = 8853404126) 4.4 g/dL 3.5-5.0 ALK PHOS (test code = 7638913578) 105 U/L 34-122 ALTv (test code = 1742-6) 38 U/L 5-35 H AST(SGOT) (test code = 2783772968) 21 U/L 13-40 eGFR (test code = 49571-3) 113.7 mL/min/1.73m2 CKD-EPI eGFR (2020). Assuming creatinine has been stable day-to-day for at least three months, the eGFR indicates Category G1 (>= 90 mL/min/1.73 m2) Lab Interpretation (test code = 25675-6) [facility] 23:27:13* Test Item Value Reference Range Interpretation Comme nts LIPASE (test code = 6304051556) 142 U/L 0-220 Lab Interpretation (test cod e = 16398-7) [facility] (70420)2023-04-30 23:41:47* Test Item Value Reference Range Interpretation Comme nts NA (test code = 4970509365) 139 mmol/L 135-145 K (test code = 5094052956) 3.3 mmol/L 3.5-5.0 L CL (test code = 2485456538) 105 mmol/L 98-108 CO2 TOTAL (test code = 2870888133) 20 mmol/L 23-31 L AGAP (test code = 6641946427) 14 2-16 BUN (test code = 9966223697) 6 mg/dL 7-23 L GLUCOSE (test code = 2242077338) 119 mg/dL 70-110 H CREATININE (test code = 7547223333) 0.59 mg/dL 0.50-1.04 TOTAL BILI (test code = 4464494594) 0.3 mg/dL 0.1-1.1 CALCIUM (test code = 6190247022) 9.7 mg/dL 8.6-10.6 T PROTEIN (test code = 6892843816) 7.6 g/dL 6.3-8.2 ALBUMIN (test code = 4610747319) 4.2 g/dL 3.5-5.0 ALK PHOS (test code = 8446980708) 78 U/L 34-122 ALTv (test code = 1742-6) 24 U/L 5-35 AST(SGOT) (test code = 1738591807) 24 U/L 13-40 eGFR (test code = 8021918310) 110.7 mL/min/1.73m2 DARWIN (test code = DARWIN) [...] imaging tests). Lab Interpretation (test code = 30936-0) Abnormal [facility] WITH [id number] 23:29:07* Test Item Value Reference Range Interpretation Comme nts WBC (test code = 6690-2) 11.56 See_Comment H [Automated [employer]] The system which generated this result transmitted reference range: 4.30 - 11.10 10*3/?L. The reference range was not used to interpret this result as normal/abnormal. RBC (test code = 789-8) 5.02 See_Comment [Automated [employer]] The system which generated this result transmitted [...] 33.7 g/dL 31.6-35.1 RDW-SD (test code = 32928-6) 41.5 fL 39.0-49.9 RDW-CV (test code = 788-0) 14.3 % 12.0-15.5 PLT (test code = 777-3) 335 See_Comment [Automated messa ge] The system which generated this result transmitted reference range: 166 - 358 10*3/?L. The reference range was not used to interpret this result as normal/abnormal. MPV (test code = 01935-6) 9.7 fL 9.5-12.9 NRBC/100 WBC (test code = 5625833598) 0.0 See_Comment [[employer]ated [employer]] The system which generated this result transmitted reference range: 0.0 - 10.0 /100 WBCs. The reference range was not used to interpret this result as normal/abnormal. NRBC x10^3 (test code = 6406781410) See_Comment [Automated [employer] ge] The system which generated this result transmitted reference range: 10*3/?L. The reference range was not used to interpret this result as normal/abnormal. GRAN MAT (NEUT) % (test code = 770-8) 65.7 % IMM GRAN % (test code = 1399255688) 0.50 % LYMPH % (test code = 736-9) 25.4 % MONO % (test code = 5905-5) 6.7 % EOS % (test code = 713-8) 1.2 % BASO % (test code = 706-2) 0.5 % GRAN MAT x10^3(ANC) (test code = 4567271537) 7.59 10*3/uL 1.88-7.09 H IMM GRAN x10^3 (test code = 1325480433) 0.06 10*3/uL 0.00-0.06 LYMPH x10^3 (test code = 731-0) 2.94 10*3/uL 1.32-3.29 MONO x10^3 (test code = 742-7) 0.77 10*3/uL 0.33-0.92 EOS x10^3 (test code = 711-2) 0.14 10*3/uL 0.03-0.39 BASO x10^3 (test code = 704-7) 0.06 10*3/uL 0.01-0.07 Lab Interpretation (test code = 50221-8) [facility] [id number] 22:59:00* Test Item Value Reference Range Interpretation Comme nts POCT PREG (test code = 1605) Negative On board controls acceptable with C Line (test code = 3574) Yes POCT PREG LOT # (test code = 3575) [id number] POCT PREG TEST DATE ( test code = 3576) 07/10/2024 Lab Interpretation (test cod e = 72642-8) [facility]TR[facility] [id number] 02:36:34* Test Item Value Reference Range Interpretation Comme nts TROPONIN I (test code = 6942426774) 0.000 ng/mL <=0.034 DARWIN (test code = [...] of biotin. Lab Interpretation (test code = 97348-5) Normal [facility]MINAL [id number] 02:34:17* Test Item Value Reference Range Interpretation Comme nts NT-proBNP (test code = 34749-8) 40 pg/mL <=125 Lab Interpretation (test cod e = 92360-6) Normal [facility] HospitalACTIVATED PARTIAL THRMPLAS [id number] 02:33:37* Test Item Value Reference Range Interpretation [...] 30 seconds. Lab Interpretation (test code = 97063-4) Normal [facility] HospitalPROTHROMBIN TIME / [id number] 02:31:36* Test Item Value Reference Range Interpretation [...] the indications. Lab Interpretation (test code = 95002-3) [facility] MET[facility]OLIC PANEL (41247)2023-04-17 02:24:56* Test Item Value Reference Range Interpretation Comme [facility] NA (test code = 6962373671) 142 mmol/L 135-145 K (test code = 0330845373) 3.1 mmol/L 3.5-5.0 L CL (test code = 5949173436) 108 mmol/L 98-108 CO2 TOTAL (test code = 4124761343) 20 mmol/L 23-31 L AGAP (test code = 3278530338) 14 2-16 BUN (test code = 6446962677) 4 mg/dL 7-23 L GLUCOSE (test code = 8426855457) 107 mg/dL 70-110 CREATININE (test code = 8307670992) 0.61 mg/dL 0.50-1.04 TOTAL BILI (test code = 2436259576) 0.2 mg/dL 0.1-1.1 CALCIUM (test code = 5273169204) 9.1 mg/dL 8.6-10.6 T PROTEIN (test code = 8995414746) 7.0 g/dL 6.3-8.2 ALBUMIN (test code = 0722931308) 3.9 g/dL 3.5-5.0 ALK PHOS (test code = 6272844651) 69 U/L 34-122 ALTv (test code = 1742-6) 21 U/L 5-35 AST(SGOT) (test code = 1619882594) 21 U/L 13-40 eGFR (test code = 8553980494) 106.5 mL/min/1.73m2 DARWIN (test code = DARWIN) [...] imaging tests). Lab Interpretation (test code = 26132-1) [facility]normal [facility]2023-[facility] 02:24:56* Test Item Value Reference Range Interpretation Comme nts LIPASE (test code = 5196363398) 104 U/L 0-220 Lab Interpretation (test cod e = 45036-8) [facility] WITH [id number] 02:13:31* Test Item Value Reference Range Interpretation [...] 34.5 g/dL 31.6-35.1 RDW-SD (test code = 98697-8) 39.1 fL 39.0-49.9 RDW-CV (test code = 788-0) 13.5 % 12.0-15.5 PLT (test code = 777-3) 324 See_Comment [Automated messa ge] The system which generated this result transmitted reference range: 166 - 358 10*3/?L. The reference range was not used to interpret this result as normal/abnormal. MPV (test code = 47802-1) 9.3 fL 9.5-12.9 L NRBC/100 WBC (test code = 1132528664) 0.0 See_Comment [[employer]ated [employer]] The system which generated this result transmitted reference range: 0.0 - 10.0 /100 WBCs. The reference range was not used to interpret this result as normal/abnormal. NRBC x10^3 (test code = 0459814206) See_Comment [Automated messa ge] The system which generated this result transmitted reference range: 10*3/?L. The reference range was not used to interpret this result as normal/abnormal. GRAN MAT (NEUT) % (test code = 770-8) 65.2 % IMM GRAN % (test code = 4468179853) 0.40 % LYMPH % (test code = 736-9) 26.5 % MONO % (test code = 5905-5) 5.8 % EOS % (test code = 713-8) 1.7 % BASO % (test code = 706-2) 0.4 % GRAN MAT x10^3(ANC) (test code = 9451503347) 7.01 10*3/uL 1.88-7.09 IMM GRAN x10^3 (test code = 9607958415) 0.04 10*3/uL 0.00-0.06 LYMPH x10^3 (test code = 731-0) 2.85 10*3/uL 1.32-3.29 MONO x10^3 (test code = 742-7) 0.62 10*3/uL 0.33-0.92 EOS x10^3 (test code = 711-2) 0.18 10*3/uL 0.03-0.39 BASO x10^3 (test code = 704-7) 0.04 10*3/uL 0.01-0.07 Lab Interpretation (test code = 13393-1) [facility] [id number] 02:11:00* Test Item Value Reference Range Interpretation Comme nts POCT PREG (test code = 1605) Negative On board controls acceptable with C Line (test code = 3574) Yes POCT PREG LOT # (test code = 3575) [id number] POCT PREG TEST DATE ( test code = 3576) 2024-09-04 Lab Interpretation (test cod e = 07265-2) Normal [facility] HospitalTROP[facility]IN [id number] 23:59:14* Test Item Value Reference Range Interpretation Comme nts TROPONIN I (test code = 5140265542) 0.000 ng/mL <=0.034 DARWIN (test code = [...] of biotin. Lab Interpretation (test code = 45981-7) Normal [facility]. METABOLIC PANEL (94441)2023-04-08 23:47:52* Test Item Value Reference Range Interpretation Comme nts NA (test code = 6961482083) 138 mmol/L 135-145 K (test code = 3462350862) 3.4 mmol/L 3.5-5.0 L CL (test code = 9700723593) 103 mmol/L 98-108 CO2 TOTAL (test code = 9349228878) 22 mmol/L 23-31 L AGAP (test code = 0846898706) 13 2-16 BUN (test code = 3188892867) 6 mg/dL 7-23 L GLUCOSE (test code = 7091225865) 106 mg/dL 70-110 CREATININE (test code = 4264609764) 0.91 mg/dL 0.50-1.04 TOTAL BILI (test code = 4888584058) 0.2 mg/dL 0.1-1.1 CALCIUM (test code = 4110490555) 8.7 mg/dL 8.6-10.6 T PROTEIN (test code = 1151862335) 7.4 g/dL 6.3-8.2 ALBUMIN (test code = 0389814045) 4.1 g/dL 3.5-5.0 ALK PHOS (test code = 5522306631) 71 U/L 34-122 ALTv (test code = 1742-6) 28 U/L 5-35 AST(SGOT) (test code = 0212242495) 28 U/L 13-40 eGFR (test code = 4320845769) 67.2 mL/min/1.73m2 DARWIN (test code = DARWIN) [...] imaging tests). Lab Interpretation (test code = 54266-4) [facility]normal [facility] HospitalMAGNESIUM2023-10-02 23:47:52* Test Item Value Reference Range Interpretation Comme nts MAGNESIUM (test code = 8085041998) 2.0 mg/dL 1.7-2.4 Lab Interpretation (test cod e = 58672-5) Normal [facility]2023-[facility] 23:47:52* Test Item Value Reference Range Interpretation Comme nts LIPASE (test code = 7801656073) 74 U/L 0-220 Lab Interpretation (test cod e = 57835-4) [facility] WITH [id number] 23:36:30* Test Item Value Reference Range Interpretation Comme nts WBC (test code = 6690-2) 9.95 See_Comment [Automated [employer]] The system which generated this result transmitted reference range: 4.30 - 11.10 10*3/?L. The reference range was not used to interpret this result as normal/abnormal. RBC (test code = 789-8) 5.29 See_Comment H [Automated [employer]] The system which generated this result transmitted [...] 34.5 g/dL 31.6-35.1 RDW-SD (test code = 59602-2) 39.3 fL 39.0-49.9 RDW-CV (test code = 788-0) 13.6 % 12.0-15.5 PLT (test code = 777-3) 305 See_Comment [Automated [employer]] The system which generated this result transmitted reference range: 166 - 358 10*3/?L. The reference range was not used to interpret this result as normal/abnormal. MPV (test code = 33549-5) 9.6 fL 9.5-12.9 NRBC/100 WBC (test code = 4229760791) 0.0 See_Comment [[employer]] The system which generated this result transmitted reference range: 0.0 - 10.0 /100 WBCs. The reference range was not used to interpret this result as normal/abnormal. NRBC x10^3 (test code = 4801511961) See_Comment [[employer]ated [employer]] The system which generated this result transmitted reference range: 10*3/?L. The reference range was not used to interpret this result as normal/abnormal. GRAN MAT (NEUT) % (test code = 770-8) 66.5 % IMM GRAN % (test code = 0452844094) 0.30 % LYMPH % (test code = 736-9) 25.3 % MONO % (test code = 5905-5) 5.2 % EOS % (test code = 713-8) 2.3 % BASO % (test code = 706-2) 0.4 % GRAN MAT x10^3(ANC) (test code = 6780772262) 6.61 10*3/uL 1.88-7.09 IMM GRAN x10^3 (test code = 7749302235) 0.03 10*3/uL 0.00-0.06 LYMPH x10^3 (test code = 731-0) 2.52 10*3/uL 1.32-3.29 MONO x10^3 (test code = 742-7) 0.52 10*3/uL 0.33-0.92 EOS x10^3 (test code = 711-2) 0.23 10*3/uL 0.03-0.39 BASO x10^3 (test code = 704-7) 0.04 10*3/uL 0.01-0.07 Lab Interpretation (test code = 78363-2) Abnormal [facility] [id number] 02:51:00* Test Item Value Reference Range Interpretation Comme nts POCT PREG (test code = 1605) Negative On board controls acceptable with C Line (test code = 3574) Yes POCT PREG LOT # (test code = 3575) [id number] POCT PREG TEST DATE ( test code = 3576) 07/10/2024 Lab Interpretation (test cod e = 04494-1) Normal [facility] [id number] 03:26:00* Test Item Value Reference Range Interpretation Comme nts POCT PREG (test code = 1605) Negative On board controls acceptable with C Line (test code = 3574) Yes POCT PREG LOT # (test code = 3575) [id number] POCT PREG TEST DATE ( test code = 3576) Lab Interpretation (test cod e = 82574-4) [facility] 22:35:38* Test Item Value Reference Range Interpretation Comme nts LIPASE (test code = 9891271169) 2049 U/L 0-220 H Lab Interpretation (test cod e = 67431-9) [facility] WITH [id number] 22:30:10* Test Item Value Reference Range Interpretation [...] 34.6 g/dL 31.6-35.1 RDW-SD (test code = 46424-5) 42.7 fL 39.0-49.9 RDW-CV (test code = 788-0) 14.6 % 12.0-15.5 PLT (test code = 777-3) 331 See_Comment [Automated [employer]] The system which generated this result transmitted reference range: 166 - 358 10*3/?L. The reference range was not used to interpret this result as normal/abnormal. MPV (test code = 22025-5) 9.7 fL 9.5-12.9 NRBC/100 WBC (test code = 3611541825) 0.0 See_Comment [[employer]] The system which generated this result transmitted reference range: 0.0 - 10.0 /100 WBCs. The reference range was not used to interpret this result as normal/abnormal. NRBC x10^3 (test code = 7142189959) See_Comment [Automated messa ge] The system which generated this result transmitted reference range: 10*3/?L. The reference range was not used to interpret this result as normal/abnormal. GRAN MAT (NEUT) % (test code = 770-8) 65.7 % IMM GRAN % (test code = 8475553547) 0.50 % LYMPH % (test code = 736-9) 26.5 % MONO % (test code = 5905-5) 5.4 % EOS % (test code = 713-8) 1.5 % BASO % (test code = 706-2) 0.4 % GRAN MAT x10^3(ANC) (test code = 0369207637) 8.05 10*3/uL 1.88-7.09 H IMM GRAN x10^3 (test code = 4020125895) 0.06 10*3/uL 0.00-0.06 LYMPH x10^3 (test code = 731-0) 3.24 10*3/uL 1.32-3.29 MONO x10^3 (test code = 742-7) 0.66 10*3/uL 0.33-0.92 EOS x10^3 (test code = 711-2) 0.18 10*3/uL 0.03-0.39 BASO x10^3 (test code = 704-7) 0.05 10*3/uL 0.01-0.07 Lab Interpretation (test code = 66405-1) [facility]OL[facility] PAN[facility] (94976)2023-02-15 22:27:47* Test Item Value Reference Range Interpretation Comme nts NA (test code = 9448665754) 138 mmol/L 135-145 K (test code = 9590279527) 3.7 mmol/L 3.5-5.0 CL (test code = 0090719123) 105 mmol/L 98-108 CO2 TOTAL (test code = 8492826569) 23 mmol/L 23-31 AGAP (test code = 1448102979) 10 2-16 BUN (test code = 2413131550) 6 mg/dL 7-23 L GLUCOSE (test code = 1346752479) 92 mg/dL 70-110 CREATININE (test code = 2713986327) 0.77 mg/dL 0.50-1.04 TOTAL BILI (test code = 4336477136) 0.7 mg/dL 0.1-1.1 CALCIUM (test code = 8112809627) 9.0 mg/dL 8.6-10.6 T PROTEIN (test code = 3194466228) 7.5 g/dL 6.3-8.2 ALBUMIN (test code = 2833994136) 4.0 g/dL 3.5-5.0 ALK PHOS (test code = 6466580882) 101 U/L 34-122 ALTv (test code = 1742-6) 25 U/L 5-35 AST(SGOT) (test code = 0839033716) 36 U/L 13-40 eGFR (test code = 9433117281) 81.8 mL/min/1.73m2 DARWIN (test code = DARWIN) [...] imaging tests). Lab Interpretation (test code = 15285-2) [facility]-ICYSD9835-78-49 20:56:28* Test Item Value Reference Range Interpretation Comments D-DIMER (test code = 8700491053) 0.44 See_Comment H [Automated message] The system [...] a diagnosis. Lab Interpretation (test code = 52133-3) Abnormal [facility] [id number] 01:15:16* Test Item Value Reference Range Interpretation Comments TROPONIN I (test code = 8466372476) 0.001 ng/mL See_Comment [Automated message] The system [...] of biotin. Lab Interpretation (test code = 31224-1) Normal [facility] [id number] 22:52:31* Test Item Value Reference Range Interpretation Comments TROPONIN I (test code = 9300833341) 0.001 ng/mL See_Comment [Automated message] The system [...] of biotin. Lab Interpretation (test code = 21499-4) [facility] [id number] 22:49:33* Test Item Value Reference Range Interpretation Comme nts NT-proBNP (test code = 9324935491) 145 pg/mL See_Comment H [Automated message] The system which generated this result transmitted reference range: <=125. The reference range was not used to interpret this result as normal/abnormal. DARWIN (test code = DARWIN) Biotin has been reported to cause a negative bias, interpret results relative to patient's use of biotin. Lab Interpretation (test code = 72857-3) [facility]OLIC PAN[facility] (NA, K, CL, CO2, GLUCOSE, BUN, CREATININE, CA)2022-01-09 22:40:32* Test Item Value Reference Range Interpretation Comme nts NA (test code = 3941560614) 142 mmol/L 135-145 K (test code = 0060741844) 3.3 mmol/L 3.5-5.0 L CL (test code = 9997122940) 109 mmol/L 98-108 H CO2 TOTAL (test code = 6615445988) 22 mmol/L 23-31 L AGAP (test code = 4149736919) 2-16 BUN (test code = 5398948496) 9 mg/dL 7-23 GLUCOSE (test code = 3099836925) 116 mg/dL 70-110 H CREATININE (test code = 4894985164) 0.69 mg/dL 0.50-1.04 CALCIUM (test code = 4315603129) 9.2 mg/dL 8.6-10.6 eGFR (test code = 2583299506) mL/min/1.73m2 DARWIN (test code = DARWIN) Association [...] imaging tests). Lab Interpretation (test code = 30093-3) Abnormal [facility] WITH [id number] 22:29:09* Test Item Value Reference Range Interpretation Comme nts WBC (test code = 6690-2) See_Comment [Automated [employer]] The system which generated this result transmitted reference range: 4.30 - 11.10 10*3/?L. The reference range was not used to interpret this result as normal/abnormal. RBC (test code = 789-8) See_Comment [Automated [employer]] The system which generated this result transmitted [...] 34.4 g/dL 31.6-35.1 RDW-SD (test code = 10938-6) 40.7 fL 39.0-49.9 RDW-CV (test code = 788-0) 14.1 % 12.0-15.5 PLT (test code = 777-3) See_Comment [Automated messa ge] The system which generated this result transmitted reference range: 166 - 358 10*3/?L. The reference range was not used to interpret this result as normal/abnormal. MPV (test code = 30076-5) 9.6 fL 9.5-12.9 NRBC/100 WBC (test code = 2262774485) See_Comment [[employer]] The system which generated this result transmitted reference range: 0.0 - 10.0 /100 WBCs. The reference range was not used to interpret this result as normal/abnormal. NRBC x10^3 (test code = 1127731264) <0.01 See_Comment [[employer]ated [employer]] The system which generated this result transmitted reference range: 10*3/?L. The reference range was not used to interpret this result as normal/abnormal. GRAN MAT (NEUT) % (test code = 770-8) 54.7 % IMM GRAN % (test code = 1645270135) 0.40 % LYMPH % (test code = 736-9) 33.8 % MONO % (test code = 5905-5) 7.1 % EOS % (test code = 713-8) 3.3 % BASO % (test code = 706-2) 0.7 % GRAN MAT x10^3(ANC) (test code = 4751218099) 4.87 10*3/uL 1.88-7.09 IMM GRAN x10^3 (test code = 6903886586) 0.04 10*3/uL 0.00-0.06 LYMPH x10^3 (test code = 731-0) 3.01 10*3/uL 1.32-3.29 MONO x10^3 (test code = 742-7) 0.63 10*3/uL 0.33-0.92 EOS x10^3 (test code = 711-2) 0.29 10*3/uL 0.03-0.39 BASO x10^3 (test code = 704-7) 0.06 10*3/uL 0.01-0.07 Lab Interpretation (test code = 05756-7) [id number] 06:45:45* Test Item Value Reference Range Interpretation Comments TROPONIN I (test code = 9075232164) 0.000 ng/mL See_Comment [Automated message] The system [...] of biotin. Lab Interpretation (test code = 39070-6) [facility] [id number] 05:00:55 * Test Item Value Reference Range Interpretation Comme nts TSH (test code = 8489700289) See_Comment [[employer]] The system which generated this result transmitted reference range: 0.45 - 4.70 mIU/L. The reference range was not used to interpret this result as normal/abnormal. Lab Interpretation (test code = 57454-6) [facility] [id number] 04:47:50* Test Item Value Reference Range Interpretation Comme nts FREE T4 (test code = 4485287979) See_Comment [[employer]] The system which generated this result transmitted reference range: 0.78 - 2.20 ng/dL:. The reference range was not used to interpret this result as normal/abnormal. Lab Interpretation (test code = 03829-1) [facility] [id number] 04:47:10* Test Item Value Reference Range Interpretation Comme nts FREE T3 (test code = 4453354905) 4.37 pg/mL 2.77-5.27 Lab Interpretation (test cod e = 07786-1) [facility] [id number] 04:42:07* Test Item Value Reference Range Interpretation Comments TROPONIN I (test code = 2765763126) 0.001 ng/mL See_Comment [Automated message] The system [...] of biotin. Lab Interpretation (test code = 79801-5) [facility] (26320)2021-12-14 04:30:28* Test Item Value Reference Range Interpretation Comme nts NA (test code = 2659274083) 141 mmol/L 135-145 K (test code = 7889410497) 3.6 mmol/L 3.5-5.0 CL (test code = 8975648959) 111 mmol/L 98-108 H CO2 TOTAL (test code = 1629847458) 19 mmol/L 23-31 L AGAP (test code = 3835932740) 2-16 BUN (test code = 3445584317) 15 mg/dL 7-23 GLUCOSE (test code = 5465097564) 113 mg/dL 70-110 H CREATININE (test code = 7517208607) 1.05 mg/dL 0.50-1.04 H TOTAL BILI (test code = 5073439987) 0.2 mg/dL 0.1-1.1 CALCIUM (test code = 8140569313) 9.8 mg/dL 8.6-10.6 T PROTEIN (test code = 6022715815) 6.8 g/dL 6.3-8.2 ALBUMIN (test code = 5624072297) 4.2 g/dL 3.5-5.0 ALK PHOS (test code = 0197504803) 73 U/L 34-122 ALTv (test code = 1742-6) 16 U/L 5-35 AST(SGOT) (test code = 7825325418) 19 U/L 13-40 eGFR (test code = 9643608877) mL/min/1.73m2 DARWIN (test code = DARWIN) Association [...] imaging tests). Lab Interpretation (test code = 44717-0) [facility] 04:29:48* Test Item Value Reference Range Interpretation Comme nts LIPASE (test code = 5887048431) 225 U/L 0-220 H Lab Interpretation (test cod e = 39959-3) [facility] [id number] 04:20:00* Test Item Value Reference Range Interpretation Comme nts POCT PREG (test code = 1605) negative On board controls acceptable with C Line (test code = 3574) present POCT PREG LOT # (test code = 3575) [id number] POCT PREG TEST DATE ( test code = 3576) 2023-05-07 Lab Interpretation (test cod e = 53406-7) Normal [facility] WITH [id number] 04:01:25* Test Item Value Reference Range Interpretation [...] 34.3 g/dL 31.6-35.1 RDW-SD (test code = 54798-7) 39.5 fL 39.0-49.9 RDW-CV (test code = 788-0) 13.6 % 12.0-15.5 PLT (test code = 777-3) See_Comment [Automated messa ge] The system which generated this result transmitted reference range: 166 - 358 10*3/?L. The reference range was not used to interpret this result as normal/abnormal. MPV (test code = 03927-7) 9.9 fL 9.5-12.9 NRBC/100 WBC (test code = 5905664815) See_Comment [Automated me ssage] The system which generated this result transmitted reference range: 0.0 - 10.0 /100 WBCs. The reference range was not used to interpret this result as normal/abnormal. NRBC x10^3 (test code = 0739284860) <0.01 See_Comment [Automated messa ge] The system which generated this result transmitted reference range: 10*3/?L. The reference range was not used to interpret this result as normal/abnormal. GRAN MAT (NEUT) % (test code = 770-8) 51.5 % IMM GRAN % (test code = 6986304617) 0.50 % LYMPH % (test code = 736-9) 35.8 % MONO % (test code = 5905-5) 9.4 % EOS % (test code = 713-8) 2.2 % BASO % (test code = 706-2) 0.6 % GRAN MAT x10^3(ANC) (test code = 1381260322) 5.37 10*3/uL 1.88-7.09 IMM GRAN x10^3 (test code = 6913543943) 0.05 10*3/uL 0.00-0.06 LYMPH x10^3 (test code = 731-0) 3.73 10*3/uL 1.32-3.29 H MONO x10^3 (test code = 742-7) 0.98 10*3/uL 0.33-0.92 H EOS x10^3 (test code = 711-2) 0.23 10*3/uL 0.03-0.39 BASO x10^3 (test code = 704-7) 0.06 10*3/uL 0.01-0.07 Lab Interpretation (test code = 49128-5) [facility] [id number] 04:04:13* Test Item Value Reference Range Interpretation Comments TROPONIN I (test code = 2084660813) 0.001 ng/mL See_Comment [Automated message] The system [...] of biotin. Lab Interpretation (test code = 43105-1) [facility]PO[facility] VIGS1830-06-23 02:56:00* Test Item Value Reference Range Interpretation Comme nts POCT PREG (test code = 1605) negative On board controls acceptable with C Line (test code = 3574) present POCT PREG LOT # (test code = 3575) [id number] POCT PREG TEST DATE ( test code = 3576) 2023-04-06 Lab Interpretation (test cod e = 27397-5) [facility] HospitalTROP[facility]IN [id number] 02:15:30* Test Item Value Reference Range Interpretation Comments TROPONIN I (test code = 5639105868) 0.000 ng/mL See_Comment [Automated message] The system [...] of biotin. Lab Interpretation (test code = 69880-3) [facility]MINAL MXU-YEO1580-93-08 02:12:14* Test Item Value Reference Range Interpretation Comme nts NT-proBNP (test code = 1535902182) 109 pg/mL See_Comment [Automated message] The system which generated this result transmitted reference range: <=125. The reference range was not used to interpret this result as normal/abnormal. DARWIN (test code = DARWIN) Biotin has been reported to cause a negative bias, interpret results relative to patient's use of biotin. Lab Interpretation (test code = 13565-7) [facility]COMP[facility]OLIC PANEL (14530)2021-11-12 02:04:12* Test Item Value Reference Range Interpretation Comme nts NA (test code = 6047497652) 140 mmol/L 135-145 K (test code = 5429752417) 4.0 mmol/L 3.5-5.0 CL (test code = 5974251699) 111 mmol/L 98-108 H CO2 TOTAL (test code = 2088789408) 17 mmol/L 23-31 L AGAP (test code = 0189007634) 2-16 BUN (test code = 1038351492) 9 mg/dL 7-23 GLUCOSE (test code = 2765048229) 105 mg/dL 70-110 CREATININE (test code = 7705705666) 0.72 mg/dL 0.50-1.04 TOTAL BILI (test code = 9851179353) 0.4 mg/dL 0.1-1.1 CALCIUM (test code = 1809622828) 9.3 mg/dL 8.6-10.6 T PROTEIN (test code = 9820061351) 6.6 g/dL 6.3-8.2 ALBUMIN (test code = 9282381166) 4.0 g/dL 3.5-5.0 ALK PHOS (test code = 9100003835) 70 U/L 34-122 ALTv (test code = 1742-6) 19 U/L 5-35 AST(SGOT) (test code = 7158764564) 21 U/L 13-40 eGFR (test code = 2255288931) mL/min/1.73m2 DARWIN (test code = DARWIN) Association [...] imaging tests). Lab Interpretation (test code = 42765-8) [facility] 02:03:32* Test Item Value Reference Range Interpretation Comme nts LIPASE (test code = 4584250177) 173 U/L 0-220 Lab Interpretation (test cod e = 19558-5) [facility]CB WITH [id number] 01:43:53* Test Item Value Reference Range Interpretation Comme nts WBC (test code = 6690-2) See_Comment [Automated [employer]] The system which generated this result transmitted reference range: 4.30 - 11.10 10*3/?L. The reference range was not used to interpret this result as normal/abnormal. RBC (test code = 789-8) See_Comment [Automated [employer]] The system which generated this result transmitted [...] 33.7 g/dL 31.6-35.1 RDW-SD (test code = 82938-1) 41.3 fL 39.0-49.9 RDW-CV (test code = 788-0) 14.3 % 12.0-15.5 PLT (test code = 777-3) See_Comment [Automated [employer] ge] The system which generated this result transmitted reference range: 166 - 358 10*3/?L. The reference range was not used to interpret this result as normal/abnormal. MPV (test code = 88472-1) 9.7 fL 9.5-12.9 NRBC/100 WBC (test code = 8761736039) See_Comment [Automated [employer] ssage] The system which generated this result transmitted reference range: 0.0 - 10.0 /100 WBCs. The reference range was not used to interpret this result as normal/abnormal. NRBC x10^3 (test code = 8344282533) <0.01 See_Comment [Automated [employer] ge] The system which generated this result transmitted reference range: 10*3/?L. The reference range was not used to interpret this result as normal/abnormal. GRAN MAT (NEUT) % (test code = 770-8) 62.6 % IMM GRAN % (test code = 6723705675) 0.50 % LYMPH % (test code = 736-9) 27.0 % MONO % (test code = 5905-5) 6.5 % EOS % (test code = 713-8) 2.9 % BASO % (test code = 706-2) 0.5 % GRAN MAT x10^3(ANC) (test code = 1171217631) 6.30 10*3/uL 1.88-7.09 IMM GRAN x10^3 (test code = 1478353877) 0.05 10*3/uL 0.00-0.06 LYMPH x10^3 (test code = 731-0) 2.71 10*3/uL 1.32-3.29 MONO x10^3 (test code = 742-7) 0.65 10*3/uL 0.33-0.92 EOS x10^3 (test code = 711-2) 0.29 10*3/uL 0.03-0.39 BASO x10^3 (test code = 704-7) 0.05 10*3/uL 0.01-0.07 Lab Interpretation (test code = 51300-3) [facility]PO[facility] [id number] 02:21:00* Test Item Value Reference Range Interpretation Comme nts POCT PREG (test code = 1605) Negative On board controls acceptable with C Line (test code = 3574) Present Lab Interpretation (test cod e = 12240-2) [facility] HospitalComplete Metabolic Euzdd6854-74-08 02:05:50* Test Item Value Reference Range Interpretation Comme nts NA (test code = 9233736774) 137 mmol/L 135-145 K (test code = 7683909371) 3.9 mmol/L 3.5-5.0 CL (test code = 8449094816) 109 mmol/L 98-108 H CO2 TOTAL (test code = 8844413526) 19 mmol/L 23-31 L AGAP (test code = 8927341268) 2-16 BUN (test code = 7419595623) 10 mg/dL 7-23 GLUCOSE (test code = 1816181089) 101 mg/dL 70-110 CREATININE (test code = 4558808512) 0.80 mg/dL 0.50-1.04 TOTAL BILI (test code = 9597645760) 0.3 mg/dL 0.1-1.1 CALCIUM (test code = 9024805499) 8.8 mg/dL 8.6-10.6 T PROTEIN (test code = 3663001095) 6.6 g/dL 6.3-8.2 ALBUMIN (test code = 0235394536) 4.0 g/dL 3.5-5.0 ALK PHOS (test code = 0029135700) 71 U/L 34-122 ALTv (test code = 1742-6) 18 U/L 5-35 AST(SGOT) (test code = 6390133474) 20 U/L 13-40 eGFR (test code = 4561051237) mL/min/1.73m2 DARWIN (test code = DARWIN) Association [...] imaging tests). Lab Interpretation (test code = 34870-1) [facility] HospitalLipase, Ivkxj3904-49-57 02:05:25* Test Item Value Reference Range Interpretation Comme nts LIPASE (test code = 5467069142) 96 U/L 0-220 Lab Interpretation (test cod e = 82880-3) [facility] with Kvjccicpbfqt6620-95-19 01:53:06* Test Item Value Reference Range Interpretation [...] 34.3 g/dL 31.6-35.1 RDW-SD (test code = 56199-4) 40.5 fL 39.0-49.9 RDW-CV (test code = 788-0) 14.4 % 12.0-15.5 PLT (test code = 777-3) See_Comment [Automated [employer] ge] The system which generated this result transmitted reference range: 166 - 358 10*3/?L. The reference range was not used to interpret this result as normal/abnormal. MPV (test code = 75315-1) 9.4 fL 9.5-12.9 L NRBC/100 WBC (test code = 9371300865) See_Comment [Automated [employer] ssage] The system which generated this result transmitted reference range: 0.0 - 10.0 /100 WBCs. The reference range was not used to interpret this result as normal/abnormal. NRBC x10^3 (test code = 6607607285) <0.01 See_Comment [Automated messa ge] The system which generated this result transmitted reference range: 10*3/?L. The reference range was not used to interpret this result as normal/abnormal. GRAN MAT (NEUT) % (test code = 770-8) 59.8 % IMM GRAN % (test code = 5281351919) 0.40 % LYMPH % (test code = 736-9) 31.0 % MONO % (test code = 5905-5) 6.3 % EOS % (test code = 713-8) 2.0 % BASO % (test code = 706-2) 0.5 % GRAN MAT x10^3(ANC) (test code = 6345656357) 6.73 10*3/uL 1.88-7.09 IMM GRAN x10^3 (test code = 0984667514) 0.05 10*3/uL 0.00-0.06 LYMPH x10^3 (test code = 731-0) 3.50 10*3/uL 1.32-3.29 H MONO x10^3 (test code = 742-7) 0.71 10*3/uL 0.33-0.92 EOS x10^3 (test code = 711-2) 0.23 10*3/uL 0.03-0.39 BASO x10^3 (test code = 704-7) 0.06 10*3/uL 0.01-0.07 Lab Interpretation (test code = 28212-3) Abnormal [facility] Omry9700-86-80 01:45:00* Test Item Value Reference Range Interpretation Comme nts POCT PREG (test code = 1605) negatibe On board controls acceptable with C Line (test code = 3574) present POCT PREG LOT # (test code = 3575) [id number] POCT PREG TEST DATE ( test code = 3576) 09/04/2022 Lab Interpretation (test cod e = 20508-5) Normal [facility] QSVT9041-07-72 06:35:00* Test Item Value Reference Range Interpretation Comme nts POCT PREG (test code = 1605) negative On board controls acceptable with C Line (test code = 3574) present POCT PREG LOT # (test code = 3575) [id number] POCT PREG TEST DATE ( test code = 3576) Lab Interpretation (test cod e = 69496-0) [id number] 09:09:55* Test Item Value Reference Range Interpretation Comments TROPONIN I (test code = 8476021217) 0.001 ng/mL See_Comment [Automated message] The system [...] of biotin. Lab Interpretation (test code = 12629-0) [facility] HospitalD-GCJTQ1924-01-57 07:23:51* Test Item Value Reference Range Interpretation Comments D-DIMER (test code = 0153997409) See_Comment [Automated message] The system which generated [...] a diagnosis. Lab Interpretation (test code = 80176-4) [facility]2021-[facility]-21 06:11:26* Test Item Value Reference Range Interpretation Comme nts LIPASE (test code = 8840600960) 155 U/L 0-220 Lab Interpretation (test cod e = 33365-8) [facility] HospitalTROPONIN [id number] 06:06:05* Test Item Value Reference Range Interpretation Comments TROPONIN I (test code = 5926503095) 0.002 ng/mL See_Comment [Automated message] The system [...] of biotin. Lab Interpretation (test code = 97794-1) [facility]N-[facility]MINAL HHT-FXA2354-34-21 06:03:04* Test Item Value Reference Range Interpretation Comme nts NT-proBNP (test code = 2521064205) 19 pg/mL See_Comment [Automated message] The system which generated this result transmitted reference range: <=125. The reference range was not used to interpret this result as normal/abnormal. DARWIN (test code = DARWIN) Biotin has been reported to cause a negative bias, interpret results relative to patient's use of biotin. Lab Interpretation (test code = 47073-4) [facility] HospitalCOMP. METABOLIC PANEL (29118)2021-05-28 05:54:25* Test Item Value Reference Range Interpretation Comme nts NA (test code = 7644194313) 136 mmol/L 135-145 K (test code = 6590106957) 3.2 mmol/L 3.5-5.0 L CL (test code = 7567851945) 109 mmol/L 98-108 H CO2 TOTAL (test code = 7059196574) 16 mmol/L 23-31 L AGAP (test code = 6360738569) 2-16 BUN (test code = 1696828756) 11 mg/dL 7-23 GLUCOSE (test code = 3287843240) 144 mg/dL 70-110 H CREATININE (test code = 1426506811) 0.84 mg/dL 0.50-1.04 TOTAL BILI (test code = 1445871042) 0.2 mg/dL 0.1-1.1 CALCIUM (test code = 0067213441) 9.4 mg/dL 8.6-10.6 T PROTEIN (test code = 8075963393) 6.9 g/dL 6.3-8.2 ALBUMIN (test code = 5533780179) 3.9 g/dL 3.5-5.0 ALK PHOS (test code = 4089508846) 106 U/L 34-122 ALTv (test code = 1742-6) 20 U/L 5-35 AST(SGOT) (test code = 3521332363) 17 U/L 13-40 eGFR (test code = 1911592976) mL/min/1.73m2 DARWIN (test code = DARWIN) Association [...] imaging tests). Lab Interpretation (test code = 42330-6) Abnormal [facility] WITH [id number] 05:40:06* Test Item Value Reference Range Interpretation Comme nts WBC (test code = 6690-2) See_Comment [Automated [employer] ge] The system which generated this result transmitted reference range: 4.30 - 11.10 10*3/?L. The reference range was not used to interpret this result as normal/abnormal. RBC (test code = 789-8) See_Comment [Automated [employer]a ge] The system which generated this result [...] 33.3 g/dL 31.6-35.1 RDW-SD (test code = 33925-4) 39.7 fL 39.0-49.9 RDW-CV (test code = 788-0) 13.6 % 12.0-15.5 PLT (test code = 777-3) See_Comment [Automated [employer]] The system which generated this result transmitted reference range: 166 - 358 10*3/?L. The reference range was not used to interpret this result as normal/abnormal. MPV (test code = 25008-0) 9.5 fL 9.5-12.9 NRBC/100 WBC (test code = 5510459346) See_Comment [Automated [employer] ss[employer]] The system which generated this result transmitted reference range: 0.0 - 10.0 /100 WBCs. The reference range was not used to interpret this result as normal/abnormal. NRBC x10^3 (test code = 9691225686) <0.01 See_Comment [Automated messa ge] The system which generated this result transmitted reference range: 10*3/?L. The reference range was not used to interpret this result as normal/abnormal. GRAN MAT (NEUT) % (test code = 770-8) 53.7 % IMM GRAN % (test code = 8406022754) 0.50 % LYMPH % (test code = 736-9) 36.0 % MONO % (test code = 5905-5) 6.3 % EOS % (test code = 713-8) 2.8 % BASO % (test code = 706-2) 0.7 % GRAN MAT x10^3(ANC) (test code = 4912825128) 5.38 10*3/uL 1.88-7.09 IMM GRAN x10^3 (test code = 1338802699) 0.05 10*3/uL 0.00-0.06 LYMPH x10^3 (test code = 731-0) 3.60 10*3/uL 1.32-3.29 H MONO x10^3 (test code = 742-7) 0.63 10*3/uL 0.33-0.92 EOS x10^3 (test code = 711-2) 0.28 10*3/uL 0.03-0.39 BASO x10^3 (test code = 704-7) 0.07 10*3/uL 0.01-0.07 Lab Interpretation (test code = 56032-8) [facility]PO[facility] GGNZ2288-00-63 05:32:00* Test Item Value Reference Range Interpretation Comme nts POCT PREG (test code = 1605) negative On board controls acceptable with C Line (test code = 3574) present POCT PREG LOT # (test code = 3575) [id number] POCT PREG TEST DATE ( test code = 3576) 08/07/2022 Lab Interpretation (test cod e = 03162-7) [facility] HospitalTroponin [id number] 11:13:57* Test Item Value Reference Range Interpretation Comments TROPONIN I (test code = 4608816821) 0.002 ng/mL See_Comment [Automated message] The system [...] of biotin. Lab Interpretation (test code = 53146-2) Normal [facility] Metabolic Panel (NA, K, CL, CO2, GLUCOSE, BUN, CREATININE, CA)2021-04-08 11:04:34* Test Item Value Reference Range Interpretation Comme nts NA (test code = 7547675759) 140 mmol/L 135-145 K (test code = 2128625292) 3.6 mmol/L 3.5-5.0 CL (test code = 7546750763) 111 mmol/L 98-108 H CO2 TOTAL (test code = 6514812365) 22 mmol/L 23-31 L AGAP (test code = 5438580806) 2-16 BUN (test code = 5413281315) 10 mg/dL 7-23 GLUCOSE (test code = 1505118169) 104 mg/dL 70-110 CREATININE (test code = 8790027054) 0.70 mg/dL 0.50-1.04 CALCIUM (test code = 8973166518) 8.7 mg/dL 8.6-10.6 eGFR (test code = 8598385597) mL/min/1.73m2 DARWIN (test code = DARWIN) Association [...] imaging tests). Lab Interpretation (test code = 00882-9) Abnormal [facility] with Zelujbuovsoo9231-31-49 10:46:50* Test Item Value Reference Range Interpretation Comme nts WBC (test code = 6690-2) See_Comment [[employer]] The system which generated this result transmitted reference range: 4.30 - 11.10 10*3/?L. The reference range was not used to interpret this result as normal/abnormal. RBC (test code = 789-8) See_Comment [[employer]] The system which generated this result transmitted [...] 33.5 g/dL 31.6-35.1 RDW-SD (test code = 78997-6) 42.0 fL 39.0-49.9 RDW-CV (test code = 788-0) 14.1 % 12.0-15.5 PLT (test code = 777-3) See_Comment [Automated messa ge] The system which generated this result transmitted reference range: 166 - 358 10*3/?L. The reference range was not used to interpret this result as normal/abnormal. MPV (test code = 43092-3) 10.0 fL 9.5-12.9 NRBC/100 WBC (test code = 4340087846) See_Comment [Automated me ssage] The system which generated this result transmitted reference range: 0.0 - 10.0 /100 WBCs. The reference range was not used to interpret this result as normal/abnormal. NRBC x10^3 (test code = 7700963701) <0.01 See_Comment [Automated me ssage] The system which generated this result transmitted reference range: 10*3/?L. The reference range was not used to interpret this result as normal/abnormal. GRAN MAT (NEUT) % (test code = 770-8) 59.1 % IMM GRAN % (test code = 8227744845) 0.70 % LYMPH % (test code = 736-9) 28.2 % MONO % (test code = 5905-5) 8.5 % EOS % (test code = 713-8) 3.0 % BASO % (test code = 706-2) 0.5 % GRAN MAT x10^3(ANC) (test code = 8694365015) 3.61 10*3/uL 1.88-7.09 IMM GRAN x10^3 (test code = 3263206885) 0.04 10*3/uL 0.00-0.06 LYMPH x10^3 (test code = 731-0) 1.72 10*3/uL 1.32-3.29 MONO x10^3 (test code = 742-7) 0.52 10*3/uL 0.33-0.92 EOS x10^3 (test code = 711-2) 0.18 10*3/uL 0.03-0.39 BASO x10^3 (test code = 704-7) 0.03 10*3/uL 0.01-0.07 [facility]Troponin [id number] 05:54:48* Test Item Value Reference Range Interpretation Comments TROPONIN I (test code = 4929047651) 0.002 ng/mL See_Comment [Automated message] The system [...] of biotin. Lab Interpretation (test code = 77447-8) Normal [facility] HospitalThyroid Stimulating Hormone (TSH)2021-04-08 00:51:16* Test Item Value Reference Range Interpretation Comme nts TSH (test code = 8080917744) See_Comment [Automated messa ge] The system which generated this result transmitted reference range: 0.45 - 4.70 mIU/L. The reference range was not used to interpret this result as normal/abnormal. Lab Interpretation (test code = 13381-7) Normal [facility] HospitalGlycosylated Hemoglobin (A1C)2021-04-08 00:26:53* Test Item Value Reference Range Interpretation Comme nts HGB A1C (test code = 4548-4) 5.5 % 4.0-5.7 DARWIN (test code = DARWIN) Reference RangesNormal: <5.7%Prediabetes: 5.7 - 6.4%Diabetes: > 6.5% Lab Interpretation (test code = 07091-8) Normal [facility] HospitalLipid Panel (Total Cholesterol, Triglycerides, HDL)2021-04-08 00:20:12* Test Item Value Reference Range Interpretation Comme nts CHOL (test code = 1669667070) 223 mg/dL 120-200 H HDL (test code = 9362069864) 35 mg/dL >50 L HDLC RATIO (test code = 5379916500) See_Comment H [Automated [employer]] The system which generated this result transmitted reference range: <=4.5. The reference range was not used to interpret this result as normal/abnormal. TRIG (test code = 4952634047) 223 mg/dL 30-170 H LDL CHOL (test code = 86828-8) 143 mg/dL See_Comment [Automated [employer]] The system which generated this result transmitted reference range: <=160. The reference range was not used to interpret this result as normal/abnormal. VLDL (test code = 5221775278) 45 mg/dL 5-60 Lab Interpretation (test code = 06936-1) Abnormal [facility] HospitalMagnesium Jdusp1378-04-89 00:20:07* Test Item Value Reference Range Interpretation Comme nts MAGNESIUM (test code = 3854020682) 1.7 mg/dL 1.7-2.4 Lab Interpretation (test cod e = 29806-0) [facility]COMP[facility] METABOLIC PANEL (97488)2021-04-07 23:04:13* Test Item Value Reference Range Interpretation Comme nts NA (test code = 6954381476) 139 mmol/L 135-145 K (test code = 9335383781) 3.4 mmol/L 3.5-5.0 L CL (test code = 6885423952) 109 mmol/L 98-108 H CO2 TOTAL (test code = 5347282265) 22 mmol/L 23-31 L AGAP (test code = 4792274862) 2-16 BUN (test code = 3850775614) 10 mg/dL 7-23 GLUCOSE (test code = 5056234072) 97 mg/dL 70-110 CREATININE (test code = 6137883775) 0.84 mg/dL 0.50-1.04 TOTAL BILI (test code = 6667596809) 0.3 mg/dL 0.1-1.1 CALCIUM (test code = 4645726579) 9.2 mg/dL 8.6-10.6 T PROTEIN (test code = 1181355896) 6.6 g/dL 6.3-8.2 ALBUMIN (test code = 7415389741) 3.8 g/dL 3.5-5.0 ALK PHOS (test code = 6243523962) 69 U/L 34-122 ALTv (test code = 1742-6) 18 U/L 5-35 AST(SGOT) (test code = 1807437722) 19 U/L 13-40 eGFR (test code = 3085330706) mL/min/1.73m2 DARWIN (test code = DARWIN) Association [...] imaging tests). Lab Interpretation (test code = 35287-5) [id number] 22:33:04* Test Item Value Reference Range Interpretation Comments TROPONIN I (test code = 4054431042) 0.001 ng/mL See_Comment [Automated message] The system [...] of biotin. Lab Interpretation (test code = 30225-0) [facility][id number] 22:30:05* Test Item Value Reference Range Interpretation Comme [facility] NT-proBNP (test code = 4805794689) 352 pg/mL See_Comment H [Automated message] The system which generated this result transmitted reference range: <=125. The reference range was not used to interpret this result as normal/abnormal. DARWIN (test code = DARWIN) Biotin has been reported to cause a negative bias, interpret results relative to patient's use of biotin. Lab Interpretation (test code = 06709-8) [facility] [id number] 22:28:48* Test Item Value Reference Range Interpretation [...] 30 seconds. Lab Interpretation (test code = 03950-9) [facility] / [id number] 22:26:44* Test Item Value Reference Range Interpretation [...] the indications. Lab Interpretation (test code = 31853-8) [facility] 22:20:05* Test Item Value Reference Range Interpretation Comme nts LIPASE (test code = 6705747152) 66 U/L 0-220 Lab Interpretation (test cod e = 31399-3) [facility] WITH [id number] 22:07:01* Test Item Value Reference Range Interpretation [...] 33.2 g/dL 31.6-35.1 RDW-SD (test code = 02693-0) 41.6 fL 39.0-49.9 RDW-CV (test code = 788-0) 14.1 % 12.0-15.5 PLT (test code = 777-3) See_Comment [Automated messa ge] The system which generated this result transmitted reference range: 166 - 358 10*3/?L. The reference range was not used to interpret this result as normal/abnormal. MPV (test code = 77428-3) 9.2 fL 9.5-12.9 L NRBC/100 WBC (test code = 5301611794) See_Comment [Automated [employer]] The system which generated this result transmitted reference range: 0.0 - 10.0 /100 WBCs. The reference range was not used to interpret this result as normal/abnormal. NRBC x10^3 (test code = 2181125954) <0.01 See_Comment [Automated messa ge] The system which generated this result transmitted reference range: 10*3/?L. The reference range was not used to interpret this result as normal/abnormal. GRAN MAT (NEUT) % (test code = 770-8) 61.6 % IMM GRAN % (test code = 3312844350) 0.60 % LYMPH % (test code = 736-9) 28.7 % MONO % (test code = 5905-5) 4.9 % EOS % (test code = 713-8) 3.7 % BASO % (test code = 706-2) 0.5 % GRAN MAT x10^3(ANC) (test code = 0191495211) 6.24 10*3/uL 1.88-7.09 IMM GRAN x10^3 (test code = 1608714225) 0.06 10*3/uL 0.00-0.06 LYMPH x10^3 (test code = 731-0) 2.90 10*3/uL 1.32-3.29 MONO x10^3 (test code = 742-7) 0.50 10*3/uL 0.33-0.92 EOS x10^3 (test code = 711-2) 0.37 10*3/uL 0.03-0.39 BASO x10^3 (test code = 704-7) 0.05 10*3/uL 0.01-0.07 Lab Interpretation (test code = 10703-1) [facility] 08:49:55* Test Item Value Reference Range Interpretation Comme nts APPEARANCE (test code = 1858193807) Cloudy Clear A COLOR (test code = 3456130237) Yellow Yellow PH (test code = 9019864815) 4.8-8.0 SP GRAVITY (test code = 4488991668) 1.003-1.030 GLU U QUAL (test code = 1604261483) Normal Normal BLOOD (test code = 5644432213) Negative Negative KETONES (test code = 2602860843) Negative Negative PROTEIN (test code = 2887-8) Negative Negative UROBILIN (test code = 5579909822) Normal Normal BILIRUBIN (test code = 2711710517) 2 mg/dL Negative A NITRITE (test code = 0706902844) Negative Negative LEUK MARC (test code = 7228901197) 75/uL Negative A RBC/HPF (test code = 7488820487) See_Comment H [Automated messa ge] The system which generated this result transmitted reference range: 0 - 3 HPF. The reference range was not used to interpret this result as normal/abnormal. WBC/HPF (test code = 8050657929) See_Comment H [Automated messa ge] The system which generated this result transmitted reference range: 0 - 5 HPF. The reference range was not used to interpret this result as normal/abnormal. BACTERIA (test code = 1713810399) Moderate Negative A MUCOUS (test code = 9652742971) Slight Negative LPF A SQ EPITH (test code = 6966226045) HPF YEAST BUD (test code = 8233449688) See_Comment H [Automated messa ge] The system which generated this result transmitted reference range: <=1 HPF. The reference range was not used to interpret this result as normal/abnormal. Ictotest (test code = 1173997022) Negative Lab Interpretation (test code = 83857-0) Abnormal [facility]. METABOLIC PANEL (08608)2021-01-12 08:49:44* Test Item Value Reference Range Interpretation Comme nts NA (test code = 7678591945) 137 mmol/L 135-145 K (test code = 1993121930) 4.6 mmol/L 3.5-5.0 CL (test code = 1734099956) 108 mmol/L 98-108 CO2 TOTAL (test code = 0066810868) 21 mmol/L 23-31 L AGAP (test code = 6988180869) 2-16 BUN (test code = 7796434174) 19 mg/dL 7-23 GLUCOSE (test code = 6179390857) 107 mg/dL 70-110 CREATININE (test code = 4286126895) 0.63 mg/dL 0.50-1.04 TOTAL BILI (test code = 1654960140) 0.4 mg/dL 0.1-1.1 CALCIUM (test code = 9318404009) 9.2 mg/dL 8.6-10.6 T PROTEIN (test code = 5868163486) 7.4 g/dL 6.3-8.2 ALBUMIN (test code = 3989864759) 4.2 g/dL 3.5-5.0 ALK PHOS (test code = 1726736060) 179 U/L 34-122 H ALTv (test code = 1742-6) 113 U/L 5-35 H AST(SGOT) (test code = 8773338672) 38 U/L 13-40 eGFR (test code = 6126978247) mL/min/1.73m2 DARWIN (test code = DARWIN) Association [...] imaging tests). Lab Interpretation (test code = 11660-7) Abnormal [facility] WITH [id number] 08:11:02* Test Item Value Reference Range Interpretation [...] 33.3 g/dL 31.6-35.1 RDW-SD (test code = 91696-3) 41.6 fL 39.0-49.9 RDW-CV (test code = 788-0) 14.0 % 12.0-15.5 PLT (test code = 777-3) See_Comment [Automated messa ge] The system which generated this result transmitted reference range: 166 - 358 10*3/?L. The reference range was not used to interpret this result as normal/abnormal. MPV (test code = 16996-9) 9.5 fL 9.5-12.9 NRBC/100 WBC (test code = 9156234780) See_Comment [[employer]ated [employer]] The system which generated this result transmitted reference range: 0.0 - 10.0 /100 WBCs. The reference range was not used to interpret this result as normal/abnormal. NRBC x10^3 (test code = 7078274991) <0.01 See_Comment [Automated messa ge] The system which generated this result transmitted reference range: 10*3/?L. The reference range was not used to interpret this result as normal/abnormal. GRAN MAT (NEUT) % (test code = 770-8) 68.0 % IMM GRAN % (test code = 2557384974) 0.80 % LYMPH % (test code = 736-9) 23.6 % MONO % (test code = 5905-5) 5.1 % EOS % (test code = 713-8) 2.1 % BASO % (test code = 706-2) 0.4 % GRAN MAT x10^3(ANC) (test code = 9556131098) 8.86 10*3/uL 1.88-7.09 H IMM GRAN x10^3 (test code = 6917620332) 0.11 10*3/uL 0.00-0.06 H LYMPH x10^3 (test code = 731-0) 3.07 10*3/uL 1.32-3.29 MONO x10^3 (test code = 742-7) 0.66 10*3/uL 0.33-0.92 EOS x10^3 (test code = 711-2) 0.27 10*3/uL 0.03-0.39 BASO x10^3 (test code = 704-7) 0.05 10*3/uL 0.01-0.07 Lab Interpretation (test code = 83625-0) [facility]PO[facility] [id number] 08:02:00* Test Item Value Reference Range Interpretation Comme nts POCT PREG (test code = 1605) negative On board controls acceptable with C Line (test code = 3574) positive POCT PREG LOT # (test code = 3575) [id number] POCT PREG TEST DATE ( test code = 3576) 07/07/2022 Lab Interpretation (test cod e = 34303-2) [facility] HospitalTROPONIN [id number] 01:55:05* Test Item Value Reference Range Interpretation Comme nts TROPONIN I (test code = 5104000658) 0.000 ng/mL See_Comment [Automated message] The system [...] biotin. ? Lab Interpretation (test code = 35082-5) Normal [facility] 1 [id number] 23:41:46No radiographic evidence of an acute cardiopulmonary process. RL: 2109AFC: 66977 EXAM: XR CHEST 1 VW ORDERING PROVIDER: [...] evidence of an acute cardiopulmonary process.RL: 2109AFC: 24380 [facility] [id number] 23:07:21* Test Item Value Reference Range Interpretation Comme nts TROPONIN I (test code = 7118739129) 0.000 ng/mL See_Comment [Automated message] The system [...] biotin. ? Lab Interpretation (test code = 38657-8) Normal [facility] HospitalN-TERMINAL PPT-[id number] 23:04:20* Test Item Value Reference Range Interpretation Comme [facility] NT-proBNP (test code = 1084311394) 14 pg/mL See_Comment [Automated message] The system which generated this result transmitted reference range: <=125. The reference range was not used to interpret this result as normal/abnormal. DARWIN (test code = DARWIN) Biotin has been reported to cause a negative bias, interpret results relative to patient's use of biotin. Lab Interpretation (test code = 24014-1) [facility] HospitalHepatic Function Panel (ALB, T.PRO, BILI T, BU/BC, ALT, AST, ALK PHOS)2020-12-10 22:58:16* Test Item Value Reference Range Interpretation Comme nts TOTAL BILI (test code = 8893653290) 0.5 mg/dL 0.1-1.1 BILI UNCON (test code = 2238338293) 0.3 mg/dL 0.1-1.1 BILI CONJ (test code = 2736714174) 0.0 mg/dL 0.0-0.3 T PROTEIN (test code = 1986271519) 8.1 g/dL 6.3-8.2 ALBUMIN (test code = 9905304088) 4.7 g/dL 3.5-5.0 ALK PHOS (test code = 5786963088) 104 U/L 34-122 ALTv (test code = 1742-6) 18 U/L 5-35 AST(SGOT) (test code = 9800940596) 23 U/L 13-40 Lab Interpretation (test cod e = 66668-5) [facility] HospitalBas[facility] Metabolic Panel (NA, K, CL, CO2, GLUCOSE, BUN, CREATININE, CA)2020-12-10 22:57:56* Test Item Value Reference Range Interpretation Comme nts NA (test code = 1132011984) 135 mmol/L 135-145 K (test code = 7098432889) 3.7 mmol/L 3.5-5.0 CL (test code = 7544397042) 105 mmol/L 98-108 CO2 TOTAL (test code = 8588441016) 18 mmol/L 23-31 L AGAP (test code = 9207163578) 2-16 BUN (test code = 2739259818) 14 mg/dL 7-23 GLUCOSE (test code = 4784041520) 108 mg/dL 70-110 CREATININE (test code = 7633526226) 0.56 mg/dL 0.50-1.04 CALCIUM (test code = 2030442074) 9.8 mg/dL 8.6-10.6 eGFR (test code = 7414986412) mL/min/1.73m2 DARWIN (test code = DARWIN) Association [...] imaging tests). Lab Interpretation (test code = 59248-7) Abnormal [facility] HospitalLipase Zibfj5399-66-15 22:57:56* Test Item Value Reference Range Interpretation Comme nts LIPASE (test code = 0310588471) 122 U/L 0-220 Lab Interpretation (test cod e = 70924-3) Normal [facility] HospitalD-QVTRZ6958-02-32 22:52:34* Test Item Value Reference Range Interpretation Comments D-DIMER (test code = 5511330854) See_Comment [Automated message] The system which generated [...] a diagnosis. Lab Interpretation (test code = 70445-0) Normal [facility] HospitalUrinalysis2021-06-05 22:52:29* Test Item Value Reference Range Interpretation Comme nts APPEARANCE (test code = 9013267428) Hazy Clear A COLOR (test code = 8886404131) Yellow Yellow PH (test code = 5045450590) 4.8-8.0 SP GRAVITY (test code = 9534163849) 1.003-1.030 GLU U QUAL (test code = 1541330792) Normal Normal BLOOD (test code = 7546403448) Negative Negative KETONES (test code = 7860873156) Negative Negative PROTEIN (test code = 2887-8) Negative Negative UROBILIN (test code = 0008511549) Normal Normal BILIRUBIN (test code = 3243931794) 2 mg/dL Negative A NITRITE (test code = 8482052019) Negative Negative LEUK MARC (test code = 0070502164) 25/uL Negative A RBC/HPF (test code = 4560760639) See_Comment [Automated [employer] ge] The system which generated this result transmitted reference range: 0 - 3 HPF. The reference range was not used to interpret this result as normal/abnormal. WBC/HPF (test code = 0408390734) See_Comment [Automated [employer] ge] The system which generated this result transmitted reference range: 0 - 5 HPF. The reference range was not used to interpret this result as normal/abnormal. BACTERIA (test code = 8636583156) Few Negative A MUCOUS (test code = 0366384928) Slight Negative LPF A SQ EPITH (test code = 5035807927) HPF Lab Interpretation (test code = 94169-0) [facility] with Ymrfueyzcpxs5044-93-21 22:45:56* Test Item Value Reference Range Interpretation [...] 33.5 g/dL 31.6-35.1 RDW-SD (test code = 79213-0) 40.5 fL 39.0-49.9 RDW-CV (test code = 788-0) 13.3 % 12.0-15.5 PLT (test code = 777-3) See_Comment H [Automated message] The system which generated this result transmitted reference range: 166 - 358 10*3/?L. The reference range was not used to interpret this result as normal/abnormal. MPV (test code = 11707-8) 9.2 fL 9.5-12.9 L NRBC/100 WBC (test code = 9136976207) See_Comment [Automated message] The system which generated this result transmitted reference range: 0.0 - 10.0 /100 WBCs. The reference range was not used to interpret this result as normal/abnormal. NRBC x10^3 (test code = 7300418068) <0.01 See_Comment [Automated message] The system which generated this result transmitted reference range: 10*3/?L. The reference range was not used to interpret this result as normal/abnormal. GRAN MAT (NEUT) % (test code = 770-8) 73.4 % IMM GRAN % (test code = 5804803448) 0.50 % LYMPH % (test code = 736-9) 17.5 % MONO % (test code = 5905-5) 6.5 % EOS % (test code = 713-8) 1.6 % BASO % (test code = 706-2) 0.5 % GRAN MAT x10^3(ANC) (test code = 6259788945) 10.21 10*3/uL 1.88-7.09 H IMM GRAN x10^3 (test code = 1372198503) 0.07 10*3/uL 0.00-0.06 H LYMPH x10^3 (test code = 731-0) 2.44 10*3/uL 1.32-3.29 MONO x10^3 (test code = 742-7) 0.90 10*3/uL 0.33-0.92 EOS x10^3 (test code = 711-2) 0.22 10*3/uL 0.03-0.39 BASO x10^3 (test code = 704-7) 0.07 10*3/uL 0.01-0.07 Lab Interpretation (test code = 95029-0) [facility]normal [facility] HospitalPOCT Yymb0792-34-50 22:32:00* Test Item Value Reference Range Interpretation Comme nts POCT PREG (test code = 1605) negative On board controls acceptable with C Line (test code = 3574) present POCT PREG LOT # (test code = 3575) [id number] POCT PREG TEST DATE ( test code = 3576) 06/06/2022 Lab Interpretation (test cod e = 99393-1) Normal [facility] HospitalUrinalysis2021-05-30 21:34:43* Test Item Value Reference Range Interpretation Comme nts APPEARANCE (test code = 2633195191) Clear Clear COLOR (test code = 5852607795) Yellow Yellow PH (test code = 6047524667) 4.8-8.0 SP GRAVITY (test code = 1034705718) 1.003-1.030 GLU U QUAL (test code = 4951332586) Normal Normal BLOOD (test code = 1697280317) Negative Negative KETONES (test code = 6300092617) Negative Negative PROTEIN (test code = 2887-8) Negative Negative UROBILIN (test code = 4805373942) Normal Normal BILIRUBIN (test code = 3463082426) Negative Negative NITRITE (test code = 8071489155) Negative Negative LEUK MARC (test code = 7088620532) Negative Negative RBC/HPF (test code = 2378983577) See_Comment [Automated messa ge] The system which generated this result transmitted reference range: 0 - 3 HPF. The reference range was not used to interpret this result as normal/abnormal. WBC/HPF (test code = 5828465403) <1 See_Comment [Automated messa ge] The system which generated this result transmitted reference range: 0 - 5 HPF. The reference range was not used to interpret this result as normal/abnormal. BACTERIA (test code = 0726027432) Negative Negative MUCOUS (test code = 2141639674) Slight Negative LPF A SQ EPITH (test code = 2211381399) HPF Lab Interpretation (test code = 58438-6) [facility]normal [facility] HospitalPOCT [id number] 21:18:00* Test Item Value Reference Range Interpretation Comme nts POCT PREG (test code = 1605) negative On board controls acceptable with C Line (test code = 3574) present POCT PREG LOT # (test code = 3575) [id number] POCT PREG TEST DATE ( test code = 3576) 06/06/2022 Lab Interpretation (test cod e = 22814-3) Normal [facility] HospitalXR ANKLE 3+ VW [id number] 21:11:00No acute bony abnormality. Preliminary Report Dictated [...] reviewed this study and agree with the abovereport.[facility] HospitalTroponin [id number] 20:59:44* Test Item Value Reference Range Interpretation Comme nts TROPONIN I (test code = 8913573686) 0.000 ng/mL See_Comment [Automated message] The system [...] biotin. ? Lab Interpretation (test code = 94719-3) Normal [facility] HospitalLipase Mbykf9519-99-37 20:48:20* Test Item Value Reference Range Interpretation Comme nts LIPASE (test code = 2976593349) 96 U/L 0-220 Lab Interpretation (test cod e = 51754-3) Normal [facility] HospitalBasi Metabolic Panel (NA, K, CL, CO2, GLUCOSE, BUN, CREATININE, CA)2020-12-04 20:48:20* Test Item Value Reference Range Interpretation Comme nts NA (test code = 7045218603) 138 mmol/L 135-145 K (test code = 7420200667) 3.8 mmol/L 3.5-5.0 CL (test code = 8549942948) 108 mmol/L 98-108 CO2 TOTAL (test code = 7691305072) 21 mmol/L 23-31 L AGAP (test code = 5074237917) 2-16 BUN (test code = 5700696371) 13 mg/dL 7-23 GLUCOSE (test code = 5959022653) 107 mg/dL 70-110 CREATININE (test code = 7886510805) 0.66 mg/dL 0.50-1.04 CALCIUM (test code = 4887381365) 9.3 mg/dL 8.6-10.6 eGFR (test code = 9841779769) mL/min/1.73m2 DARWIN (test code = DARWIN) Association [...] imaging tests). Lab Interpretation (test code = 51991-8) Abnormal [facility] HospitalHepatic Function Panel (ALB, T.PRO, BILI T, BU/BC, ALT, AST, ALK PHOS)2020-12-04 20:48:20* Test Item Value Reference Range Interpretation Comme nts TOTAL BILI (test code = 2233925162) 0.3 mg/dL 0.1-1.1 BILI UNCON (test code = 0659052779) 0.1 mg/dL 0.1-1.1 BILI CONJ (test code = 3286523675) 0.0 mg/dL 0.0-0.3 T PROTEIN (test code = 5591550383) 7.0 g/dL 6.3-8.2 ALBUMIN (test code = 1323957766) 4.0 g/dL 3.5-5.0 ALK PHOS (test code = 2666160337) 114 U/L 34-122 ALTv (test code = 1742-6) 30 U/L 5-35 AST(SGOT) (test code = 5495032143) 23 U/L 13-40 Lab Interpretation (test cod e = 60077-5) Normal [facility] with Hfqhytyjxnad1172-53-60 20:35:01* Test Item Value Reference Range Interpretation Comme nts WBC (test code = 6690-2) See_Comment [Automated [employer]] The system which generated this result transmitted reference range: 4.30 - 11.10 10*3/?L. The reference range was not used to interpret this result as normal/abnormal. RBC (test code = 789-8) See_Comment [Automated [employer]] The system which generated this result transmitted [...] 34.0 g/dL 31.6-35.1 RDW-SD (test code = 64714-6) 39.8 fL 39.0-49.9 RDW-CV (test code = 788-0) 12.9 % 12.0-15.5 PLT (test code = 777-3) See_Comment [Automated messa ge] The system which generated this result transmitted reference range: 166 - 358 10*3/?L. The reference range was not used to interpret this result as normal/abnormal. MPV (test code = 31485-4) 9.3 fL 9.5-12.9 L NRBC/100 WBC (test code = 7320010665) See_Comment [[employer]] The system which generated this result transmitted reference range: 0.0 - 10.0 /100 WBCs. The reference range was not used to interpret this result as normal/abnormal. NRBC x10^3 (test code = 6491687572) <0.01 See_Comment [Automated messa ge] The system which generated this result transmitted reference range: 10*3/?L. The reference range was not used to interpret this result as normal/abnormal. GRAN MAT (NEUT) % (test code = 770-8) 71.5 % IMM GRAN % (test code = 9663846358) 0.30 % LYMPH % (test code = 736-9) 19.8 % MONO % (test code = 5905-5) 6.2 % EOS % (test code = 713-8) 1.8 % BASO % (test code = 706-2) 0.4 % GRAN MAT x10^3(ANC) (test code = 1714884826) 6.79 10*3/uL 1.88-7.09 IMM GRAN x10^3 (test code = 9265027788) 0.03 10*3/uL 0.00-0.06 LYMPH x10^3 (test code = 731-0) 1.88 10*3/uL 1.32-3.29 MONO x10^3 (test code = 742-7) 0.59 10*3/uL 0.33-0.92 EOS x10^3 (test code = 711-2) 0.17 10*3/uL 0.03-0.39 BASO x10^3 (test code = 704-7) 0.04 10*3/uL 0.01-0.07 Lab Interpretation (test code = 96463-6) Abnormal [facility] HospitalDRUG SCREEN ER (URINE)2020-11-04 02:54:38* Test Item Value Reference Range Interpretation Comme nts AMPHET (test code = 5105754128) Negative Negative Cocaine Metabolite (test code = 4283485170) Negative Negative OPIATES (test code = 3959818104) Presumptive Positive Negative A THC (test code = 1288868426) Negative Negative DARWIN (test code = DARWIN) Urine Drug Cutoff Ranges Amphetamine: ? 1,000 ng/mLCocaine: ? 150 ng/mLOpiates: ? 300 ng/mLCannabinoids: ?50 ng/mL The results are to be used only for medical (i.e., treatment) purposes. Unconfirmed screening results must not be used for non-medical purposes (e.g., employment testing, legal testing). Lab Interpretation (test code = 88353-4) Abnormal [facility] HospitalTROPONIN [id number] 02:51:11* Test Item Value Reference Range Interpretation Comme nts TROPONIN I (test code = 9924348872) 0.001 ng/mL See_Comment [Automated message] The system [...] biotin. ? Lab Interpretation (test code = 87933-6) Normal [facility] HospitalaPTT2021-04-30 02:41:10* Test Item Value Reference Range [...] 30 seconds. Lab Interpretation (test code = 30613-0) Normal [facility] HospitalURINALYSIS2021-04-30 02:40:40* Test Item Value Reference Range Interpretation Comme nts APPEARANCE (test code = 3556309645) Clear Clear COLOR (test code = 7552606051) Yellow Yellow PH (test code = 5633054510) 4.8-8.0 SP GRAVITY (test code = 7753900501) 1.003-1.030 GLU U QUAL (test code = 8361064303) Normal Normal BLOOD (test code = 1139720017) Negative Negative KETONES (test code = 3752277864) Negative Negative PROTEIN (test code = 2887-8) Negative Negative UROBILIN (test code = 0010372513) Normal Normal BILIRUBIN (test code = 1082881446) Negative Negative NITRITE (test code = 5728524507) Negative Negative LEUK MARC (test code = 7513997515) Negative Negative RBC/HPF (test code = 3233255702) <1 See_Comment [Automated messa ge] The system which generated this result transmitted reference range: 0 - 3 HPF. The reference range was not used to interpret this result as normal/abnormal. WBC/HPF (test code = 9532519465) <1 See_Comment [Automated messa ge] The system which generated this result transmitted reference range: 0 - 5 HPF. The reference range was not used to interpret this result as normal/abnormal. BACTERIA (test code = 3015971720) Negative Negative MUCOUS (test code = 2811773143) Slight Negative LPF A SQ EPITH (test code = 1544443866) HPF Lab Interpretation (test code = 14654-1) Abnormal [facility] HospitalCOMP. METABOLIC PANEL (94887)2020-11-04 02:40:09* Test Item Value Reference Range Interpretation Comme nts NA (test code = 7531561670) 141 mmol/L 135-145 K (test code = 3453101289) 4.1 mmol/L 3.5-5.0 CL (test code = 0652033484) 110 mmol/L 98-108 H CO2 TOTAL (test code = 5769460200) 22 mmol/L 23-31 L AGAP (test code = 0512789787) 2-16 BUN (test code = 4064146818) 15 mg/dL 7-23 GLUCOSE (test code = 4180176770) 115 mg/dL 70-110 H CREATININE (test code = 5745485290) 0.69 mg/dL 0.50-1.04 TOTAL BILI (test code = 6109990424) 0.2 mg/dL 0.1-1.1 CALCIUM (test code = 5811285474) 9.2 mg/dL 8.6-10.6 T PROTEIN (test code = 5097274072) 6.8 g/dL 6.3-8.2 ALBUMIN (test code = 5189372222) 4.1 g/dL 3.5-5.0 ALK PHOS (test code = 5867404522) 69 U/L 34-122 ALTv (test code = 1742-6) 20 U/L 5-35 AST(SGOT) (test code = 7929077642) 23 U/L 13-40 eGFR (test code = 9770997164) mL/min/1.73m2 DARWIN (test code = DARWIN) Association [...] imaging tests). Lab Interpretation (test code = 66293-8) Abnormal [facility] HospitalLIPASE, TULRM8812-17-91 02:39:49* Test Item Value Reference Range Interpretation Comme nts LIPASE (test code = 6449942602) 117 U/L 0-220 Lab Interpretation (test cod e = 77326-7) Normal [facility] HospitalPROTHROMBIN TIME / [id number] 02:39:08* Test Item Value Reference Range Interpretation Comme nts PROTIME PATIENT (test code = 5964-2) See_Comment [Automated [employer]] The system which generated this result transmitted reference range: 12.0 - 14.7 Seconds. The reference range was not used to interpret this result as normal/abnormal. INR (test code = 6301-6) Normal INR <1.1; Warfarin Therapeutic range 2.0 to 3.0 or 2.5 to 3.5, depending upon the indications. Lab Interpretation (test code = 00337-2) Normal [facility] HospitalCB WITH [id number] 02:30:11* Test Item Value Reference Range Interpretation Comme nts WBC (test code = 6690-2) See_Comment H [Automated [employer]] The system which generated this result transmitted reference range: 4.30 - 11.10 10*3/?L. The reference range was not used to interpret this result as normal/abnormal. RBC (test code = 789-8) See_Comment [[employer]] The system which generated this result transmitted [...] 32.8 g/dL 31.6-35.1 RDW-SD (test code = 68482-7) 44.1 fL 39.0-49.9 RDW-CV (test code = 788-0) 13.8 % 12.0-15.5 PLT (test code = 777-3) See_Comment [Automated messa ge] The system which generated this result transmitted reference range: 166 - 358 10*3/?L. The reference range was not used to interpret this result as normal/abnormal. MPV (test code = 25676-8) 9.6 fL 9.5-12.9 NRBC/100 WBC (test code = 6575448731) See_Comment [[employer]ated [employer]] The system which generated this result transmitted reference range: 0.0 - 10.0 /100 WBCs. The reference range was not used to interpret this result as normal/abnormal. NRBC x10^3 (test code = 5722435924) <0.01 See_Comment [Automated [employer]] The system which generated this result transmitted reference range: 10*3/?L. The reference range was not used to interpret this result as normal/abnormal. GRAN MAT (NEUT) % (test code = 770-8) 65.9 % IMM GRAN % (test code = 8540240290) 0.70 % LYMPH % (test code = 736-9) 25.9 % MONO % (test code = 5905-5) 5.1 % EOS % (test code = 713-8) 2.0 % BASO % (test code = 706-2) 0.4 % GRAN MAT x10^3(ANC) (test code = 9818262298) 8.82 10*3/uL 1.88-7.09 H IMM GRAN x10^3 (test code = 3798462072) 0.09 10*3/uL 0.00-0.06 H LYMPH x10^3 (test code = 731-0) 3.46 10*3/uL 1.32-3.29 H MONO x10^3 (test code = 742-7) 0.68 10*3/uL 0.33-0.92 EOS x10^3 (test code = 711-2) 0.27 10*3/uL 0.03-0.39 BASO x10^3 (test code = 704-7) 0.05 10*3/uL 0.01-0.07 Lab Interpretation (test code = 66036-4) [facility] RAPID TESTING)2020-09-17 16:56:05* Test Item Value Reference Range Interpretation Comme nts SARS-CoV-2 Rapid ID NOW (test code = 66827-4) Not Detected Not Detected DARWIN (test code = DARWIN) ID NOW COVID-19 As say is an isothermal nucleic acid amplification test intended for the qualitative detection of nucleic acid from SARS-CoV-2 viral RNA in nasopharyngeal (GOVERNMENT AUDITOR) specimens. It is used under Emergency Use [...] clinically indicated. Lab Interpretation (test code = 05210-8) Normal [facility] HospitalRAPID STREP SCREEN FOR GROUP [id number] 16:54:09* Test Item Value Reference Range Interpretation Comme nts Streptococcus pyogenes (grou p A) antigen (test code = 85351-8) Negative Negative Lab Interpretation (test cod e = 90113-1) [facility] 3+ VW [id number] 07:29:48 Impression: No acute fracture or dislocation. RL: 2824AFC: 94105 End of Report Exam: Left Hand, 09/07/2020 [...] swelling.IMPRESSIONImpression: No acute fracture or dislocation.RL: 2824AFC: 70644Yxc of Report [facility] VW [id number] 07:28:55No acute abnormality of the left forearm. RL: 6200AFC: 22435 Patient name: CHARITY MONROYOB: 1980 40 years [...] acute abnormality of the left forearm.RL: 6200AFC: 64656 [facility]inalysis2021-02-21 09:06:00* Test Item Value Reference Range Interpretation Comme nts APPEARANCE (test code = 0511540882) Hazy Clear A COLOR (test code = 1485025421) Yellow Yellow PH (test code = 7154508371) 4.8-8.0 SP GRAVITY (test code = 9553035933) 1.003-1.030 GLU U QUAL (test code = 0751349372) Normal Normal BLOOD (test code = 6255278399) Negative Negative KETONES (test code = 1701457341) Negative Negative PROTEIN (test code = 2887-8) Negative Negative UROBILIN (test code = 3953618965) Normal Normal BILIRUBIN (test code = 6979601470) Negative Negative NITRITE (test code = 7679465709) Negative Negative LEUK MARC (test code = 3775801598) Negative Negative RBC/HPF (test code = 2658703064) See_Comment [Automated messa ge] The system which generated this result transmitted reference range: 0 - 3 HPF. The reference range was not used to interpret this result as normal/abnormal. WBC/HPF (test code = 4103456570) <1 See_Comment [Automated messa ge] The system which generated this result transmitted reference range: 0 - 5 HPF. The reference range was not used to interpret this result as normal/abnormal. BACTERIA (test code = 2717588596) Moderate Negative A SQ EPITH (test code = 2645043420) HPF Lab Interpretation (test code = 65264-9) [facility] with Cdoqxfxiiwjw4437-95-01 08:50:00* Test Item Value Reference Range Interpretation [...] 34.0 g/dL 31.6-35.1 RDW-SD (test code = 55910-2) 42.6 fL 39-49.9 RDW-CV (test code = 788-0) 13.6 % 12-15.5 PLT (test code = 777-3) See_Comment H [Automated messa ge] The system which generated this result transmitted reference range: 166 - 358 10*3/?L. The reference range was not used to interpret this result as normal/abnormal. MPV (test code = 53434-2) 9.7 fL 9.5-12.9 NRBC/100 WBC (test code = 0893567480) See_Comment [[employer]] The system which generated this result transmitted reference range: 0.0 - 10.0 /100 WBCs. The reference range was not used to interpret this result as normal/abnormal. NRBC x10^3 (test code = 2059893973) <0.01 See_Comment [Automated [employer] ge] The system which generated this result transmitted reference range: 10*3/?L. The reference range was not used to interpret this result as normal/abnormal. GRAN MAT (NEUT) % (test code = 770-8) 49.7 % IMM GRAN % (test code = 8586018674) 0.50 % LYMPH % (test code = 736-9) 41.0 % MONO % (test code = 5905-5) 6.5 % EOS % (test code = 713-8) 1.9 % BASO % (test code = 706-2) 0.4 % GRAN MAT x10^3(ANC) (test code = 2450364516) 6.39 10*3/uL 1.88-7.09 IMM GRAN x10^3 (test code = 1787232214) 0.07 10*3/uL 0-0.06 H LYMPH x10^3 (test code = 731-0) 5.27 10*3/uL 1.32-3.29 H MONO x10^3 (test code = 742-7) 0.84 10*3/uL 0.33-0.92 EOS x10^3 (test code = 711-2) 0.24 10*3/uL 0.03-0.39 BASO x10^3 (test code = 704-7) 0.05 10*3/uL 0.01-0.07 Lab Interpretation (test code = 07331-8) Abnormal [facility] HospitalPOCT Cwhq0255-35-31 08:45:00* Test Item Value Reference Range Interpretation Comme nts POCT PREG (test code = 1605) neg On board controls acceptable with C Line (test code = 3574) yes POCT PREG LOT # (test code = 3575) [id number] POCT PREG TEST DATE ( test code = 3576) 04/06/2022 Lab Interpretation (test cod e = 43271-2) Normal [facility] HospitalComplete Metabolic Tmvqm7137-20-12 08:30:00* Test Item Value Reference Range Interpretation Comme nts NA (test code = 2285826947) 137 mmol/L 135-145 K (test code = 1071907760) 3.3 mmol/L 3.5-5 L CL (test code = 0192008309) 102 mmol/L 98-108 CO2 TOTAL (test code = 3886057730) 24 mmol/L 23-31 AGAP (test code = 9920641212) 2-16 BUN (test code = 1449305118) 9 mg/dL 7-23 GLUCOSE (test code = 3076518695) 116 mg/dL 70-110 H CREATININE (test code = 4378139428) 0.48 mg/dL 0.5-1.04 L TOTAL BILI (test code = 2890406328) 0.3 mg/dL 0.1-1.1 CALCIUM (test code = 1507092720) 9.4 mg/dL 8.6-10.6 T PROTEIN (test code = 6550266204) 7.0 g/dL 6.3-8.2 ALBUMIN (test code = 3047928678) 4.3 g/dL 3.5-5 ALK PHOS (test code = 2285836620) 127 U/L 34-122 H ALTv (test code = 1742-6) 87 U/L 5-35 H AST(SGOT) (test code = 8617940184) 34 U/L 13-40 eGFR Calculation (Non-) (test code = 7585763203) mL/min/1.73m2 eGFR Calculation () (test code = 0739662121) mL/min/1.73m2 DARWIN (test code = DARWIN) Association [...] imaging tests). Lab Interpretation (test code = 15416-2) [facility], Rumfb0783-49-22 08:30:00* Test Item Value Reference Range Interpretation Comme nts LIPASE (test code = 4164198436) 297 U/L 0-220 H Lab Interpretation (test cod e = 24947-6) Abnormal [facility] HospitalURINALYSIS2021-02-07 19:25:00* Test Item Value Reference Range Interpretation Comme nts APPEARANCE (test code = 3563679377) Clear Clear COLOR (test code = 7324237794) Straw Yellow A PH (test code = 6173131341) 4.8-8.0 SP GRAVITY (test code = 3809450649) 1.003-1.030 GLU U QUAL (test code = 3612934924) Normal Normal BLOOD (test code = 1297377389) 1+ Negative A KETONES (test code = 7670577881) Negative Negative PROTEIN (test code = 2887-8) Negative Negative UROBILIN (test code = 9798019032) Normal Normal BILIRUBIN (test code = 3373474060) Negative Negative NITRITE (test code = 3787105034) Negative Negative LEUK MARC (test code = 6693263389) Negative Negative RBC/HPF (test code = 3447705417) See_Comment [Automated [employer]] The system which generated this result transmitted reference range: 0 - 3 HPF. The reference range was not used to interpret this result as normal/abnormal. WBC/HPF (test code = 1686676181) <1 See_Comment [Automated Ar[employer]od[employer]] The system which generated this result transmitted reference range: 0 - 5 HPF. The reference range was not used to interpret this result as normal/abnormal. BACTERIA (test code = 5790364097) Few Negative A MUCOUS (test code = 6392484173) Slight Negative LPF A SQ EPITH (test code = 6920330021) HPF Lab Interpretation (test code = 51326-1) Abnormal [facility] HospitalTROPONIN [id number] 19:09:00* Test Item Value Reference Range Interpretation Comme nts TROPONIN I (test code = 3120855627) <0.012 See_Comment [Automated message] The system which [...] biotin. ? Lab Interpretation (test code = 49897-5) Normal [facility] - DRUG SCREEN JUNPMD5695-28-40 19:09:00* Test Item Value Reference Range Interpretation Comme nts BENZO U (test code = 4485970566) Presumptive Positive Negative A ROSA U (test code = 6388500639) Negative Negative AMPHET (test code = 7910649086) Negative Negative THC (test code = 8745107803) Negative Negative METHADONE (test code = 2248864165) Negative Negative Meth U (test code = 8537500916) Negative Negative OPIATES (test code = 3056793190) Negative Negative Cocaine Metabolite (test code = 4558626558) Negative Negative PROPOXY (test code = 6231835175) Negative Negative Tric U (test code = 5258769332) Negative Negative PCP (test code = 4948181763) Negative Negative OXYCOD (test code = 8624507718) Negative Negative DARWIN (test code = DARWIN) [...] legal testing). Lab Interpretation (test code = 04015-8) Abnormal [facility]. METABOLIC PANEL (82695)2020-08-14 19:01:00* Test Item Value Reference Range Interpretation Comme nts NA (test code = 9216646038) 138 mmol/L 135-145 K (test code = 7591494092) 4.5 mmol/L 3.5-5 CL (test code = 4273634545) 106 mmol/L 98-108 CO2 TOTAL (test code = 3752587029) 21 mmol/L 23-31 L AGAP (test code = 7722307975) 2-16 BUN (test code = 9982165954) 13 mg/dL 7-23 GLUCOSE (test code = 9761673169) 97 mg/dL 70-110 CREATININE (test code = 5053912063) 0.48 mg/dL 0.5-1.04 L TOTAL BILI (test code = 2054117776) 0.4 mg/dL 0.1-1.1 CALCIUM (test code = 5555579467) 9.1 mg/dL 8.6-10.6 T PROTEIN (test code = 1305455911) 7.5 g/dL 6.3-8.2 ALBUMIN (test code = 2512768378) 4.3 g/dL 3.5-5 ALK PHOS (test code = 5359546913) 62 U/L 34-122 ALTv (test code = 1742-6) 19 U/L 5-35 AST(SGOT) (test code = 3843020925) 26 U/L 13-40 eGFR Calculation (Non-) (test code = 9977952672) mL/min/1.73m2 eGFR Calculation () (test code = 5129990663) mL/min/1.73m2 DARWIN (test code = DARWIN) Association [...] imaging tests). Lab Interpretation (test code = 27744-4) Abnormal [facility] HospitalLIPASE2021-02-07 19:01:00* Test Item Value Reference Range Interpretation Comme nts LIPASE (test code = 5257076511) 76 U/L 0-220 Lab Interpretation (test cod e = 41263-5) Normal [facility] HospitalCB WITH [id number] 18:47:00* Test Item Value Reference Range Interpretation Comme nts WBC (test code = 6690-2) See_Comment H [Automated [employer]] The system which generated this result transmitted reference range: 4.30 - 11.10 10*3/?L. The reference range was not used to interpret this result as normal/abnormal. RBC (test code = 789-8) See_Comment [Automated [employer]] The system which generated this result transmitted [...] 34.3 g/dL 31.6-35.1 RDW-SD (test code = 94273-5) 42.0 fL 39-49.9 RDW-CV (test code = 788-0) 13.4 % 12-15.5 PLT (test code = 777-3) See_Comment [Automated messa ge] The system which generated this result transmitted reference range: 166 - 358 10*3/?L. The reference range was not used to interpret this result as normal/abnormal. MPV (test code = 70762-3) 9.9 fL 9.5-12.9 NRBC/100 WBC (test code = 7016673179) See_Comment [[employer]] The system which generated this result transmitted reference range: 0.0 - 10.0 /100 WBCs. The reference range was not used to interpret this result as normal/abnormal. NRBC x10^3 (test code = 9007444061) <0.01 See_Comment [Automated messa ge] The system which generated this result transmitted reference range: 10*3/?L. The reference range was not used to interpret this result as normal/abnormal. GRAN MAT (NEUT) % (test code = 770-8) 60.1 % IMM GRAN % (test code = 3487973469) 0.40 % LYMPH % (test code = 736-9) 31.3 % MONO % (test code = 5905-5) 6.0 % EOS % (test code = 713-8) 1.9 % BASO % (test code = 706-2) 0.3 % GRAN MAT x10^3(ANC) (test code = 0382062813) 6.96 10*3/uL 1.88-7.09 IMM GRAN x10^3 (test code = 3042268836) 0.05 10*3/uL 0-0.06 LYMPH x10^3 (test code = 731-0) 3.62 10*3/uL 1.32-3.29 H MONO x10^3 (test code = 742-7) 0.69 10*3/uL 0.33-0.92 EOS x10^3 (test code = 711-2) 0.22 10*3/uL 0.03-0.39 BASO x10^3 (test code = 704-7) 0.04 10*3/uL 0.01-0.07 Lab Interpretation (test code = 54411-4) [facility] CHEST 1 [id number] 18:17:08No acute cardiopulmonary abnormality. Preliminary Report Dictated [...] reviewed this study and agree with theabove report.[facility] HospitalLactic Acid Whole Ohttf8301-71-19 18:11:00* Test Item Value Reference Range Interpretation Comme nts LACTIC ACID (test code = 0772798504) 1.95 mmol/L 0.5-2.2 Lab Interpretation (test cod e = 72451-8) Normal [facility] HospitalCT ABDOMEN PELVIS WO [id number] 05:45:24No acute abdominopelvic abnormality. No urolithiasis. 2.5 [...] reviewed this study and agree with the abovereport.[facility] [id number] 03:10:00* Test Item Value Reference Range Interpretation Comme nts POCT PREG (test code = 1605) Negative On board controls acceptable with C Line (test code = 3574) Present POCT PREG LOT # (test code = 3575) [id number] POCT PREG TEST DATE ( test code = 3576) 03/07/2022 Lab Interpretation (test cod e = 19632-0) Normal [facility] with Runtzjvrwqer3886-00-58 03:05:00* Test Item Value Reference Range Interpretation [...] 34.7 g/dL 31.6-35.1 RDW-SD (test code = 37335-8) 42.0 fL 39-49.9 RDW-CV (test code = 788-0) 13.5 % 12-15.5 PLT (test code = 777-3) See_Comment [Automated message] The system which generated this result transmitted reference range: 166 - 358 10*3/?L. The reference range was not used to interpret this result as normal/abnormal. MPV (test code = 92909-7) 9.8 fL 9.5-12.9 NRBC/100 WBC (test code = 6269280529) See_Comment [Automated message] The system which generated this result transmitted reference range: 0.0 - 10.0 /100 WBCs. The reference range was not used to interpret this result as normal/abnormal. NRBC x10^3 (test code = 8472981477) <0.01 See_Comment [Automated message] The system which generated this result transmitted reference range: 10*3/?L. The reference range was not used to interpret this result as normal/abnormal. GRAN MAT (NEUT) % (test code = 770-8) 66.2 % IMM GRAN % (test code = 4218292940) 0.60 % LYMPH % (test code = 736-9) 25.4 % MONO % (test code = 5905-5) 5.6 % EOS % (test code = 713-8) 1.9 % BASO % (test code = 706-2) 0.3 % GRAN MAT x10^3(ANC) (test code = 4662901653) 10.64 10*3/uL 1.88-7.09 H IMM GRAN x10^3 (test code = 5766944257) 0.09 10*3/uL 0-0.06 H LYMPH x10^3 (test code = 731-0) 4.09 10*3/uL 1.32-3.29 H MONO x10^3 (test code = 742-7) 0.90 10*3/uL 0.33-0.92 EOS x10^3 (test code = 711-2) 0.31 10*3/uL 0.03-0.39 BASO x10^3 (test code = 704-7) 0.05 10*3/uL 0.01-0.07 Lab Interpretation (test code = 72992-3) Abnormal [facility] HospitalUrinalysis2021-02-04 02:56:00* Test Item Value Reference Range Interpretation Comme nts APPEARANCE (test code = 3912489389) Hazy Clear A COLOR (test code = 1623236816) Yellow Yellow PH (test code = 6347209108) 4.8-8.0 SP GRAVITY (test code = 6001323794) 1.003-1.030 GLU U QUAL (test code = 1150576213) Normal Normal BLOOD (test code = 3131618938) Negative Negative KETONES (test code = 0288074033) Negative Negative PROTEIN (test code = 2887-8) Negative Negative UROBILIN (test code = 8750425374) Normal Normal BILIRUBIN (test code = 8973893263) Negative Negative NITRITE (test code = 2380992098) Negative Negative LEUK MARC (test code = 6764487207) Negative Negative RBC/HPF (test code = 9640202149) See_Comment [Automated [employer] ge] The system which generated this result transmitted reference range: 0 - 3 HPF. The reference range was not used to interpret this result as normal/abnormal. WBC/HPF (test code = 3840993956) See_Comment [Automated [employer] ge] The system which generated this result transmitted reference range: 0 - 5 HPF. The reference range was not used to interpret this result as normal/abnormal. BACTERIA (test code = 0978300786) Few Negative A MUCOUS (test code = 8029146647) Slight Negative LPF A SQ EPITH (test code = 7998767566) HPF YEAST BUD (test code = 7047891034) See_Comment H [Automated messa ge] The system which generated this result transmitted reference range: <=1 HPF. The reference range was not used to interpret this result as normal/abnormal. Lab Interpretation (test code = 13817-1) [facility] Q9096-[facility] 02:24:00* Test Item Value Reference Range Interpretation Comme nts TROPONIN I (test code = 7814164378) <0.012 See_Comment [Automated message] The system which [...] biotin. ? Lab Interpretation (test code = 27510-7) Normal [facility] HospitalCOVID[facility] (ID NOW RAPID TESTING)2020-08-11 02:15:00* Test Item Value Reference Range Interpretation Comme nts SARS-CoV-2 Rapid ID NOW (test code = 20038-4) Not Detected Not Detected DARWIN (test code = DARWIN) ID NOW COVID-19 As say is an isothermal nucleic acid amplification test intended for the qualitative detection of nucleic acid from SARS-CoV-2 viral RNA in nasopharyngeal (GOVERNMENT AUDITOR) specimens. It is used under Emergency Use [...] clinically indicated. Lab Interpretation (test code = 07697-4) Normal [facility] Metabolic Panel (NA, K, CL, CO2, GLUCOSE, BUN, CREATININE, CA)2020-08-11 02:13:00* Test Item Value Reference Range Interpretation Comme nts NA (test code = 1531959333) 137 mmol/L 135-145 K (test code = 7339589757) 4.0 mmol/L 3.5-5 CL (test code = 0605390792) 107 mmol/L 98-108 CO2 TOTAL (test code = 9766352798) 19 mmol/L 23-31 L AGAP (test code = 6876267735) 2-16 BUN (test code = 1232322460) 10 mg/dL 7-23 GLUCOSE (test code = 7647011640) 106 mg/dL 70-110 CREATININE (test code = 3902134658) 0.47 mg/dL 0.5-1.04 L CALCIUM (test code = 1441113563) 9.2 mg/dL 8.6-10.6 eGFR Calculation (Non-) (test code = 2099679900) mL/min/1.73m2 eGFR Calculation () (test code = 5500923019) mL/min/1.73m2 DARWIN (test code = DARWNI) Association of Glomerular Filtration Rate (GFR) and [...] imaging tests). Lab Interpretation (test code = 94707-7) Abnormal [facility] HospitalHepatic Function Panel (ALB, T.PRO, BILI T, BU/BC, ALT, AST, ALK PHOS)2020-08-11 02:13:00* Test Item Value Reference Range Interpretation Comme nts TOTAL BILI (test code = 7786008274) 0.4 mg/dL 0.1-1.1 BILI UNCON (test code = 4110873519) 0.3 mg/dL 0.1-1.1 BILI CONJ (test code = 0256265477) 0.0 mg/dL 0-0.3 T PROTEIN (test code = 8750127952) 7.5 g/dL 6.3-8.2 ALBUMIN (test code = 7539668181) 4.4 g/dL 3.5-5 ALK PHOS (test code = 4441266146) 48 U/L 34-122 ALTv (test code = 1742-6) 12 U/L 5-35 AST(SGOT) (test code = 1200117948) 22 U/L 13-40 Lab Interpretation (test cod e = 63616-4) Normal [facility] HospitalLipase Xsliw3568-96-91 02:13:00* Test Item Value Reference Range Interpretation Comme nts LIPASE (test code = 7386088632) 78 U/L 0-220 Lab Interpretation (test cod e = 10028-6) Normal [facility] HospitalLactic Acid Whole Nqlou1615-88-78 02:05:00* Test Item Value Reference Range Interpretation Comme nts LACTIC ACID (test code = 6209125163) 1.47 mmol/L 0.5-2.2 Lab Interpretation (test cod e = 73564-7) Normal [facility]XR FOREARM 2 VW [id number] 14:31:40No acute bony abnormality. Soft tissue swelling. [...] reviewed this study and agree with the abovereport.[facility] HospitalCOVID[facility] (ID NOW RAPID TESTING)2020-08-07 14:18:00* Test Item Value Reference Range Interpretation Comme nts SARS-CoV-2 Rapid ID NOW (test code = 47854-9) Not Detected Not Detected DARWIN (test code = DARWIN) ID NOW COVID-19 As say is an isothermal nucleic acid amplification test intended for the qualitative detection of nucleic acid from SARS-CoV-2 viral RNA in nasopharyngeal (GOVERNMENT AUDITOR) specimens. It is used under Emergency Use [...] clinically indicated. Lab Interpretation (test code = 91846-0) Normal [facility] HospitalJACEKN K2033-75-82 02:54:00* Test Item Value Reference Range Interpretation Comme nts TROPONIN I (test code = 8701592559) <0.012 See_Comment [Automated message] The system which [...] biotin. ? Lab Interpretation (test code = 10354-2) Normal [facility] HospitalLIPASE2020-12-25 02:37:00* Test Item Value Reference Range Interpretation Comme nts LIPASE (test code = 5895122594) 76 U/L 0-220 Lab Interpretation (test cod e = 74050-1) Normal [facility] HospitalURINALYSIS2020-12-25 01:54:00* Test Item Value Reference Range Interpretation Comme nts APPEARANCE (test code = 9846620996) Clear Clear COLOR (test code = 5578677782) Straw Yellow A PH (test code = 6370808621) 4.8-8.0 SP GRAVITY (test code = 2606813196) 1.003-1.030 GLU U QUAL (test code = 5353542095) Normal Normal BLOOD (test code = 4119106498) 3+ Negative A KETONES (test code = 7143921822) Negative Negative PROTEIN (test code = 2887-8) Negative Negative UROBILIN (test code = 8488819934) Normal Normal BILIRUBIN (test code = 7972760229) Negative Negative NITRITE (test code = 9949108491) Negative Negative LEUK MARC (test code = 8591668035) Negative Negative RBC/HPF (test code = 2925162060) See_Comment [Automated messa ge] The system which generated this result transmitted reference range: 0 - 3 HPF. The reference range was not used to interpret this result as normal/abnormal. WBC/HPF (test code = 5626999032) <1 See_Comment [Automated messa ge] The system which generated this result transmitted reference range: 0 - 5 HPF. The reference range was not used to interpret this result as normal/abnormal. BACTERIA (test code = 9101844382) Few Negative A MUCOUS (test code = 9369030543) Slight Negative LPF A SQ EPITH (test code = 0611969972) HPF Lab Interpretation (test code = 47600-6) Abnormal [facility] WITH [id number] 00:57:00* Test Item Value Reference Range Interpretation [...] 34.0 g/dL 31.6-35.1 RDW-SD (test code = 09371-8) 41.7 fL 39-49.9 RDW-CV (test code = 788-0) 13.2 % 12-15.5 PLT (test code = 777-3) See_Comment [Automated [employer] ge] The system which generated this result transmitted reference range: 166 - 358 10*3/?L. The reference range was not used to interpret this result as normal/abnormal. MPV (test code = 96560-2) 9.4 fL 9.5-12.9 L NRBC/100 WBC (test code = 3117085675) See_Comment [[employer]] The system which generated this result transmitted reference range: 0.0 - 10.0 /100 WBCs. The reference range was not used to interpret this result as normal/abnormal. NRBC x10^3 (test code = 8347467082) <0.01 See_Comment [Automated [employer] ge] The system which generated this result transmitted reference range: 10*3/?L. The reference range was not used to interpret this result as normal/abnormal. GRAN MAT (NEUT) % (test code = 770-8) 51.8 % IMM GRAN % (test code = 4290196853) 0.50 % LYMPH % (test code = 736-9) 40.7 % MONO % (test code = 5905-5) 4.0 % EOS % (test code = 713-8) 2.5 % BASO % (test code = 706-2) 0.5 % GRAN MAT x10^3(ANC) (test code = 5432580958) 5.38 10*3/uL 1.88-7.09 IMM GRAN x10^3 (test code = 2716117071) 0.05 10*3/uL 0-0.06 LYMPH x10^3 (test code = 731-0) 4.22 10*3/uL 1.32-3.29 H MONO x10^3 (test code = 742-7) 0.42 10*3/uL 0.33-0.92 EOS x10^3 (test code = 711-2) 0.26 10*3/uL 0.03-0.39 BASO x10^3 (test code = 704-7) 0.05 10*3/uL 0.01-0.07 Lab Interpretation (test code = 51841-3) [facility] - INFLUENZA A & B DIRECT [id number] 00:51:00* Test Item Value Reference Range Interpretation Comme nts Influenza A (test code = 14871-7) Negative Negative Influenza B (test code = 02490-9) Negative Negative Lab Interpretation (test cod e = 18216-1) Normal [facility]POCT [id number] 00:51:00* Test Item Value Reference Range Interpretation Comme nts POCT PREG (test code = 1605) negative On board controls acceptable with C Line (test code = 3574) present POCT PREG LOT # (test code = 3575) [id number] POCT PREG TEST DATE ( test code = 3576) 11/04/2021 Lab Interpretation (test cod e = 93108-4) Normal [facility] HospitalTROPONIN [id number] 00:46:00* Test Item Value Reference Range Interpretation Comme nts TROPONIN I (test code = 2166822414) <0.012 See_Comment [Automated message] The system which [...] biotin. ? Lab Interpretation (test code = 65357-9) Normal [facility] (NA, K, CL, CO2, GLUCOSE, BUN, CREATININE, CA)2020-07-01 00:46:00* Test Item Value Reference Range Interpretation Comme nts NA (test code = 0624644034) 141 mmol/L 135-145 K (test code = 5233025004) 3.8 mmol/L 3.5-5 CL (test code = 8458723515) 108 mmol/L 98-108 CO2 TOTAL (test code = 5439206266) 25 mmol/L 23-31 AGAP (test code = 8230340189) 2-16 BUN (test code = 8530560610) 10 mg/dL 7-23 GLUCOSE (test code = 4228016756) 92 mg/dL 70-110 CREATININE (test code = 1769935620) 0.58 mg/dL 0.5-1.04 CALCIUM (test code = 5611954724) 9.4 mg/dL 8.6-10.6 eGFR Calculation (Non-) (test code = 7731524347) mL/min/1.73m2 eGFR Calculation () (test code = 9210135262) mL/min/1.73m2 DARWIN (test code = DARWIN) Association [...] or urine or abnormalities in imaging tests). [facility] HospitalN-TERMINAL DHK-[id number] 00:43:00* Test Item Value Reference Range Interpretation Comme nts NT-proBNP (test code = 4922279552) 332 pg/mL See_Comment H [Automated message] The system which generated this result transmitted reference range: <=125. The reference range was not used to interpret this result as normal/abnormal. DARWIN (test code = DARWIN) Biotin has been reported to cause a negative bias, interpret results relative to patient's use of biotin. Lab Interpretation (test code = 21344-4) Abnormal [facility] HospitalXR CHEST 1 [id number] 00:20:50No acute cardiopulmonary abnormality Preliminary Report Dictated by Resident: Altaf Neal ?MD Sean., have reviewed this study and agree with the abovereport.XR CHEST 1 VW HISTORY: 40years-old; Female; chest pain COMPARISON: Chest radiograph 06/12/2020 FINDINGS: The lungs are clearwith no focal consolidation. Crowding of the vasculature [...] of the vasculature is most likely related topoor inspiratoryeffort. There is no pleural effusion or pneumothorax.The cardiomediastinal silhouette is normal.No acute osseous abnormality is identified.IMPRESSIONNo acute cardiopulmonary abnormalityPreliminary Report Dictated by Resident: Altaf Galvin MD., have reviewed this study and agree with the abovereport.[facility] CERVICAL SPINE WO [id number] 23:23:[address] EXAMINATION: CT [...] are unremarkable. Visualized lung apices are unremarkable. Ut, Radiant Results Inft User -06/28/2020 5:24 PM [...] lung apices are unremarkable. IMPRESSIONUnremarkable cervical spine CT.[facility] HospitalPOWA Bkbu3394-14-20 01:50:00* Test Item Value Reference Range Interpretation Comme nts POCT PREG (test code = 1605) Negative On board controls acceptable with C Line (test code = 3574) Present POCT PREG LOT # (test code = 3575) [id number] POCT PREG TEST DATE ( test code = 3576) 10/05/2021 Lab Interpretation (test cod e = 89166-4) Normal [facility] HospitalJoan [id number] 01:24:00* Test Item Value Reference Range Interpretation Comme nts TROPONIN I (test code = 4722643182) <0.012 See_Comment [Automated message] The system which [...] biotin. ? Lab Interpretation (test code = 83006-6) Normal [facility] HospitalCOVID-19 (ID NOW RAPID TESTING)2020-06-13 01:22:00* Test Item Value Reference Range Interpretation Comme nts SARS-CoV-2 Rapid ID NOW (test code = 45322-7) Not Detected Not Detected DARWIN (test code = DARWIN) ID NOW COVID-19 As say is an isothermal nucleic acid amplification test intended for the qualitative detection of nucleic acid from SARS-CoV-2 viral RNA in nasopharyngeal (GOVERNMENT AUDITOR) specimens. It is used under Emergency Use [...] clinically indicated. Lab Interpretation (test code = 81446-0) Normal [facility] HospitalD-[id number] 01:16:00* Test Item Value Reference Range Interpretation Comments D-DIMER (test code = 7206220187) See_Comment [Automated message] The system which generated [...] a diagnosis. Lab Interpretation (test code = 07585-6) Normal [facility] HospitalBasi Metabolic Panel (NA, K, CL, CO2, GLUCOSE, BUN, CREATININE, CA)2020-06-13 01:13:00* Test Item Value Reference Range Interpretation Comme nts NA (test code = 5882045787) 137 mmol/L 135-145 K (test code = 0640206767) 4.2 mmol/L 3.5-5 CL (test code = 2710627460) 103 mmol/L 98-108 CO2 TOTAL (test code = 9808763002) 25 mmol/L 23-31 AGAP (test code = 7775001533) 2-16 BUN (test code = 0487917805) 11 mg/dL 7-23 GLUCOSE (test code = 8085968391) 98 mg/dL 70-110 CREATININE (test code = 4850513756) 0.52 mg/dL 0.5-1.04 CALCIUM (test code = 6720488835) 10.3 mg/dL 8.6-10.6 eGFR Calculation (Non-) (test code = 9897390795) mL/min/1.73m2 eGFR Calculation () (test code = 9316914133) mL/min/1.73m2 DARWIN (test code = DARWIN) Association [...] or urine or abnormalities in imaging tests). [facility] (ALB, T.PRO, BILI T, BU/BC, ALT, AST, ALK PHOS)2020-06-13 01:13:00* Test Item Value Reference Range Interpretation Comme nts TOTAL BILI (test code = 5095759621) 0.5 mg/dL 0.1-1.1 BILI UNCON (test code = 7826219289) 0.3 mg/dL 0.1-1.1 BILI CONJ (test code = 0382518948) 0.0 mg/dL 0-0.3 T PROTEIN (test code = 8273886240) 7.3 g/dL 6.3-8.2 ALBUMIN (test code = 7361299737) 4.2 g/dL 3.5-5 ALK PHOS (test code = 2769301674) 85 U/L 34-122 ALTv (test code = 1742-6) 66 U/L 5-35 H AST(SGOT) (test code = 3552951974) 32 U/L 13-40 Lab Interpretation (test cod e = 56700-3) Abnormal [facility] HospitalLipase [id number] 01:13:00* Test Item Value Reference Range Interpretation Comme nts LIPASE (test code = 8035311925) 60 U/L 0-220 Lab Interpretation (test cod e = 50411-2) Normal [facility] HospitalUrinalysis2020-12-07 01:03:00* Test Item Value Reference Range Interpretation Comme nts APPEARANCE (test code = 4452707804) Clear Clear COLOR (test code = 6961459938) Straw Yellow A PH (test code = 6396988761) 4.8-8.0 SP GRAVITY (test code = 0050574291) 1.003-1.030 GLU U QUAL (test code = 9449011769) Normal Normal BLOOD (test code = 2450729037) Negative Negative KETONES (test code = 8617000269) Negative Negative PROTEIN (test code = 2887-8) Negative Negative UROBILIN (test code = 1734563967) Normal Normal BILIRUBIN (test code = 2864783650) Negative Negative NITRITE (test code = 3811450415) Negative Negative LEUK MARC (test code = 7303728313) Negative Negative RBC/HPF (test code = 2958335249) See_Comment [Automated messa ge] The system which generated this result transmitted reference range: 0 - 3 HPF. The reference range was not used to interpret this result as normal/abnormal. WBC/HPF (test code = 3877334023) See_Comment [Automated [employer] ge] The system which generated this result transmitted reference range: 0 - 5 HPF. The reference range was not used to interpret this result as normal/abnormal. BACTERIA (test code = 5811938369) Negative Negative MUCOUS (test code = 2579651125) Slight Negative LPF A SQ EPITH (test code = 9042959928) HPF Lab Interpretation (test code = 73763-6) Abnormal [facility] with Xfjvhdlmqkdp8233-10-14 00:55:00* Test Item Value Reference Range Interpretation Comme nts WBC (test code = 6690-2) See_Comment H [Automated [employer]] The system which generated this result transmitted reference range: 4.30 - 11.10 10*3/?L. The reference range was not used to interpret this result as normal/abnormal. RBC (test code = 789-8) See_Comment [Automated [employer]] The system which generated this result transmitted [...] 34.5 g/dL 31.6-35.1 RDW-SD (test code = 61156-9) 42.5 fL 39-49.9 RDW-CV (test code = 788-0) 13.5 % 12-15.5 PLT (test code = 777-3) See_Comment [Automated [employer]] The system which generated this result transmitted reference range: 166 - 358 10*3/?L. The reference range was not used to interpret this result as normal/abnormal. MPV (test code = 62201-0) 10.1 fL 9.5-12.9 NRBC/100 WBC (test code = 8703081115) See_Comment [Automated me ssage] The system which generated this result transmitted reference range: 0.0 - 10.0 /100 WBCs. The reference range was not used to interpret this result as normal/abnormal. NRBC x10^3 (test code = 0688451935) <0.01 See_Comment [Automated messa ge] The system which generated this result transmitted reference range: 10*3/?L. The reference range was not used to interpret this result as normal/abnormal. GRAN MAT (NEUT) % (test code = 770-8) 61.9 % IMM GRAN % (test code = 1851781539) 0.60 % LYMPH % (test code = 736-9) 30.6 % MONO % (test code = 5905-5) 5.2 % EOS % (test code = 713-8) 1.4 % BASO % (test code = 706-2) 0.3 % GRAN MAT x10^3(ANC) (test code = 5364468508) 8.03 10*3/uL 1.88-7.09 H IMM GRAN x10^3 (test code = 7357797414) 0.08 10*3/uL 0-0.06 H LYMPH x10^3 (test code = 731-0) 3.97 10*3/uL 1.32-3.29 H MONO x10^3 (test code = 742-7) 0.68 10*3/uL 0.33-0.92 EOS x10^3 (test code = 711-2) 0.18 10*3/uL 0.03-0.39 BASO x10^3 (test code = 704-7) 0.04 10*3/uL 0.01-0.07 Lab Interpretation (test code = 55770-9) Abnormal [facility] HospitalCOVID-[facility] (ID NOW RAPID TESTING)2020-05-17 00:27:00* Test Item Value Reference Range Interpretation Comme nts SARS-CoV-2 Rapid ID NOW (test code = 35633-1) Not Detected Not Detected DARWIN (test code = DARWIN) ID NOW COVID-19 As say is an isothermal nucleic acid amplification test intended for the qualitative detection of nucleic acid from SARS-CoV-2 viral RNA in nasopharyngeal (GOVERNMENT AUDITOR) specimens. It is used under Emergency Use [...] clinically indicated. Lab Interpretation (test code = 54611-3) Normal [facility] Metabolic Panel (NA, K, CL, CO2, GLUCOSE, BUN, CREATININE, CA)2020-05-17 00:00:00* Test Item Value Reference Range Interpretation Comme nts NA (test code = 1224890460) 136 mmol/L 135-145 K (test code = 9634544603) 3.6 mmol/L 3.5-5 CL (test code = 5663677216) 103 mmol/L 98-108 CO2 TOTAL (test code = 7537664199) 26 mmol/L 23-31 AGAP (test code = 2843063366) 2-16 BUN (test code = 1343868427) 13 mg/dL 7-23 GLUCOSE (test code = 9299014554) 130 mg/dL 70-110 H CREATININE (test code = 6172860810) 0.58 mg/dL 0.5-1.04 CALCIUM (test code = 4473199031) 9.9 mg/dL 8.6-10.6 eGFR Calculation (Non-) (test code = 6525075098) mL/min/1.73m2 eGFR Calculation () (test code = 1958229456) mL/min/1.73m2 DARWIN (test code = DARWIN) Association [...] imaging tests). Lab Interpretation (test code = 93996-4) Abnormal [facility] HospitalHepatic Function Panel (ALB, T.PRO, BILI T, BU/BC, ALT, AST, ALK PHOS)2020-05-17 00:00:00* Test Item Value Reference Range Interpretation Comme nts TOTAL BILI (test code = 5232544846) 0.4 mg/dL 0.1-1.1 BILI UNCON (test code = 0194871245) 0.3 mg/dL 0.1-1.1 BILI CONJ (test code = 0120495842) 0.0 mg/dL 0-0.3 T PROTEIN (test code = 6851244787) 7.3 g/dL 6.3-8.2 ALBUMIN (test code = 2810944898) 4.3 g/dL 3.5-5 ALK PHOS (test code = 2541766836) 118 U/L 34-122 ALTv (test code = 1742-6) 119 U/L 5-35 H AST(SGOT) (test code = 4792998349) 47 U/L 13-40 H Lab Interpretation (test cod e = 67684-7) Abnormal [facility] HospitalLipase Bryvc6607-52-86 00:00:00* Test Item Value Reference Range Interpretation Comme nts LIPASE (test code = 5031022536) 70 U/L 0-220 Lab Interpretation (test cod e = 67179-5) Normal [facility] with Iadugpjvbmca6162-85-80 23:49:00* Test Item Value Reference Range Interpretation [...] 33.3 g/dL 31.6-35.1 RDW-SD (test code = 31916-6) 42.8 fL 39-49.9 RDW-CV (test code = 788-0) 13.5 % 12-15.5 PLT (test code = 777-3) See_Comment [Automated messa ge] The system which generated this result transmitted reference range: 166 - 358 10*3/?L. The reference range was not used to interpret this result as normal/abnormal. MPV (test code = 29149-4) 9.8 fL 9.5-12.9 NRBC/100 WBC (test code = 9261805687) See_Comment [Automated me ssage] The system which generated this result transmitted reference range: 0.0 - 10.0 /100 WBCs. The reference range was not used to interpret this result as normal/abnormal. NRBC x10^3 (test code = 6848013745) <0.01 See_Comment [Automated me ssage] The system which generated this result transmitted reference range: 10*3/?L. The reference range was not used to interpret this result as normal/abnormal. GRAN MAT (NEUT) % (test code = 770-8) 62.5 % IMM GRAN % (test code = 7278300609) 0.50 % LYMPH % (test code = 736-9) 29.8 % MONO % (test code = 5905-5) 5.6 % EOS % (test code = 713-8) 1.1 % BASO % (test code = 706-2) 0.5 % GRAN MAT x10^3(ANC) (test code = 7608087363) 6.65 10*3/uL 1.88-7.09 IMM GRAN x10^3 (test code = 9347032233) 0.05 10*3/uL 0-0.06 LYMPH x10^3 (test code = 731-0) 3.17 10*3/uL 1.32-3.29 MONO x10^3 (test code = 742-7) 0.59 10*3/uL 0.33-0.92 EOS x10^3 (test code = 711-2) 0.12 10*3/uL 0.03-0.39 BASO x10^3 (test code = 704-7) 0.05 10*3/uL 0.01-0.07 [facility] HospitalACETAMINOPHEN2020-11-08 08:24:00* Test Item Value Reference Range Interpretation Comme nts ACETAMINOP (test code = 0248689213) 21.0 ug/mL 10-30 DARWIN (test code = DARWIN) Toxic: Greater joan n 200 ug/mL @ 4 hour post ingestion or greater than 50 ug/mL @ 12 hour post ingestion Lab Interpretation (test code = 49660-7) Normal [facility] HospitalETHANOL2020-11-08 06:37:00* Test Item Value Reference Range Interpretation Comme nts ALCOHOL (test code = 0449982414) <10 mg/dL DARWIN (test code = DARWIN) <10 Hjldkkwe50-169 Toxic>100 Depression of ALMOND GRINDER>400 Fatalities Reported [facility] HospitalBasi Metabolic Panel (NA, K, CL, CO2, GLUCOSE, BUN, CREATININE, CA)2020-05-15 06:35:00* Test Item Value Reference Range Interpretation Comme nts NA (test code = 1305905654) 137 mmol/L 135-145 K (test code = 6040830582) 4.0 mmol/L 3.5-5 CL (test code = 3938159875) 106 mmol/L 98-108 CO2 TOTAL (test code = 1745507440) 25 mmol/L 23-31 AGAP (test code = 4584284522) 2-16 BUN (test code = 3916394243) 9 mg/dL 7-23 GLUCOSE (test code = 8720903430) 95 mg/dL 70-110 CREATININE (test code = 1594320508) 0.53 mg/dL 0.5-1.04 CALCIUM (test code = 8231707309) 9.0 mg/dL 8.6-10.6 eGFR Calculation (Non-) (test code = 0086649221) mL/min/1.73m2 eGFR Calculation () (test code = 0986200924) mL/min/1.73m2 DARWIN (test code = DARWIN) Association [...] or urine or abnormalities in imaging tests). [facility] HospitalHep[facility] Function Panel (ALB, T.PRO, BILI T, BU/BC, ALT, AST, ALK PHOS)2020-05-15 06:35:00* Test Item Value Reference Range Interpretation Comme nts TOTAL BILI (test code = 5594779318) 0.4 mg/dL 0.1-1.1 BILI UNCON (test code = 3704227134) 0.2 mg/dL 0.1-1.1 BILI CONJ (test code = 9990740095) 0.0 mg/dL 0-0.3 T PROTEIN (test code = 3781056230) 6.3 g/dL 6.3-8.2 ALBUMIN (test code = 1191724609) 3.8 g/dL 3.5-5 ALK PHOS (test code = 8413623418) 117 U/L 34-122 ALTv (test code = 1742-6) 179 U/L 5-35 H AST(SGOT) (test code = 4666793559) 194 U/L 13-40 H Lab Interpretation (test cod e = 24667-9) Abnormal [facility] HospitalLipase Ehnrw6039-16-23 06:35:00* Test Item Value Reference Range Interpretation Comme nts LIPASE (test code = 4818855255) 92 U/L 0-220 Lab Interpretation (test cod e = 70723-6) Normal [facility] HospitalaPTT2020-11-08 06:22:00* Test Item Value Reference Range [...] 30 seconds. Lab Interpretation (test code = 98150-8) Normal [facility] HospitalUrinalysis2020-11-08 06:21:00* Test Item Value Reference Range Interpretation Comme nts APPEARANCE (test code = 8190436307) Clear Clear COLOR (test code = 0831509868) Yellow Yellow PH (test code = 0276214169) 4.8-8.0 SP GRAVITY (test code = 5807487556) 1.003-1.030 GLU U QUAL (test code = 0289090949) Normal Normal BLOOD (test code = 2978187343) Negative Negative KETONES (test code = 2622597695) Negative Negative PROTEIN (test code = 2887-8) Negative Negative UROBILIN (test code = 6629187831) Normal Normal BILIRUBIN (test code = 6859630407) Negative Negative NITRITE (test code = 5324712263) Negative Negative LEUK MARC (test code = 6319111037) Negative Negative RBC/HPF (test code = 2039549992) See_Comment [Automated messa ge] The system which generated this result transmitted reference range: 0 - 3 HPF. The reference range was not used to interpret this result as normal/abnormal. WBC/HPF (test code = 1414510901) <1 See_Comment [Automated messa ge] The system which generated this result transmitted reference range: 0 - 5 HPF. The reference range was not used to interpret this result as normal/abnormal. BACTERIA (test code = 1638564117) Negative Negative MUCOUS (test code = 0887483366) Slight Negative LPF A SQ EPITH (test code = 2308535738) HPF Lab Interpretation (test code = 92426-6) Abnormal [facility] HospitalProthrombin Time (PT) / [id number] 06:20:00 * Test Item Value Reference Range [...] the indications. Lab Interpretation (test code = 71548-9) Normal [facility] - DRUG SCREEN OJVRYS2330-54-18 06:19:00* Test Item Value Reference Range Interpretation Comme nts BENZO U (test code = 6334042979) Presumptive Positive Negative A ROSA U (test code = 6794343173) Negative Negative AMPHET (test code = 5825179885) Negative Negative THC (test code = 7411844806) Negative Negative METHADONE (test code = 8278224325) Negative Negative Meth U (test code = 5809625239) Negative Negative OPIATES (test code = 3176161610) Negative Negative Cocaine Metabolite (test code = 5933357672) Negative Negative PROPOXY (test code = 1035443799) Negative Negative Tric U (test code = 6251272185) Negative Negative PCP (test code = 3177400762) Negative Negative OXYCOD (test code = 9842770210) Negative Negative DARWIN (test code = DARWIN) [...] legal testing). Lab Interpretation (test code = 02699-7) Abnormal [facility] with Yiaslfvntinw5150-13-83 06:07:00* Test Item Value Reference Range Interpretation Comme nts WBC (test code = 6690-2) See_Comment [Automated [employer]] The system which generated this result transmitted reference range: 4.30 - 11.10 10*3/?L. The reference range was not used to interpret this result as normal/abnormal. RBC (test code = 789-8) See_Comment [Automated Arterial Remodeling Technologiesa ge] The system which generated this result [...] 34.3 g/dL 31.6-35.1 RDW-SD (test code = 16937-7) 43.4 fL 39-49.9 RDW-CV (test code = 788-0) 13.7 % 12-15.5 PLT (test code = 777-3) See_Comment [Automated messa ge] The system which generated this result transmitted reference range: 166 - 358 10*3/?L. The reference range was not used to interpret this result as normal/abnormal. MPV (test code = 10204-7) 9.7 fL 9.5-12.9 NRBC/100 WBC (test code = 6949228956) See_Comment [Automated [employer] ssage] The system which generated this result transmitted reference range: 0.0 - 10.0 /100 WBCs. The reference range was not used to interpret this result as normal/abnormal. NRBC x10^3 (test code = 9612562223) <0.01 See_Comment [Automated messa ge] The system which generated this result transmitted reference range: 10*3/?L. The reference range was not used to interpret this result as normal/abnormal. GRAN MAT (NEUT) % (test code = 770-8) 50.6 % IMM GRAN % (test code = 3896571595) 0.20 % LYMPH % (test code = 736-9) 42.1 % MONO % (test code = 5905-5) 5.5 % EOS % (test code = 713-8) 1.2 % BASO % (test code = 706-2) 0.4 % GRAN MAT x10^3(ANC) (test code = 7621150008) 4.31 10*3/uL 1.88-7.09 IMM GRAN x10^3 (test code = 3981469621) <0.03 0-0.06 LYMPH x10^3 (test code = 731-0) 3.58 10*3/uL 1.32-3.29 H MONO x10^3 (test code = 742-7) 0.47 10*3/uL 0.33-0.92 EOS x10^3 (test code = 711-2) 0.10 10*3/uL 0.03-0.39 BASO x10^3 (test code = 704-7) 0.03 10*3/uL 0.01-0.07 Lab Interpretation (test code = 11523-0) Abnormal [facility] HospitalPOCT Hxvs1455-77-42 05:53:00* Test Item Value Reference Range Interpretation Comme nts POCT PREG (test code = 1605) Negative On board controls acceptable with C Line (test code = 3574) Present POCT PREG LOT # (test code = 3575) HCG [id number] POCT PREG TEST DATE ( test code = 3576) 10/05/2021 Lab Interpretation (test cod e = 78335-3) Normal [facility] History and Physical Notes Date/Time Note [...] Her diarrhea though is chronic, since a 2004 cholecystectomy. ROS: 2 days of chest pain [...] (TYLENOL) tablet 1,000 mg, 1,000 mg, Oral, Q6HPBelleN, Flako Mercado MD enoxaparin (LOVENOX) injection 40 [...] the ACR Incidental Findings Committee;Journal of the [employer] Volume 7, Issue 10, Pages [phone], April 2010). CHEST 1 VW Result Date: [...] process is identified in the chest. RL: 4750 END OF REPORT Assessment and plan: Principal [...] Flako Mercado MD 02/16/2023 IM-INTERNAL MEDICINE STAFF [facility] Notes <thead> Date/Time Note Provider Source 2024-05-07 21:32:31 Patient discharged to home. Patient given printed and verbal discharge instructions regarding diagnosis. Instructed to follow up with PCP. Patient verbalized understanding of instructions. Patient awake, alert, oriented, respirations even and unlabored, skin warm and dry, color appropriate for race. No adverse reaction to meds given in ER noted upon discharge. PIV removed. Discussed medications. Advised to seek medical attention for new/prolonged/worsening of symptoms, patient ambulated from unit with steady gait in no apparent distress. Cameron Posada RN [facility] 2024-05-07 18:45:11 Pt arrived ambulatory with complaints of lower back pain, lower abdominal pain, and dysuria since yesterday. Took Tramadol at 2pm Aline Lou RN [facility] Pzs6593-45-96 06:28:23 THANK YOU FOR CHOOSING US FOR YOUR MEDICAL CARE AND IT WAS A PLEASURE TO TAKE CARE OF YOU: PUSHPA RODRIGUEZ, MSN, INFRASTRUCTURE DIRECTOR, [facility] DIAGNOSIS: UTI, GASTROENTERITIS PRESCRIPTION: ZOFRAN AND MACROBID PER PRESCRIPTION DETAILS SENT TO [facility]: ROCEPHIN GIVEN IN ER FOLLOW UP: PRIMARY CARE IN 2 DAYS *RETURN TO ER FOR WORSENING OF SYMPTOMS* INSTRUCTIONS: PLENTY OF FLUIDS CLEAR LIQUIDS AND ADVANCE UP TOLERATED BLAND DIET: NO FATTY, FRIED, OR SPICY FOODS TYLENOL AND IBUPROFEN NEEDED GOOD INFECTION CONTROL - SUCH HANDWASHING Future Tests Future scheduled test information is unavailable Pending Tests Pending diagnostic test information is unavailable Future Visits Future appointment information is unavailable Referrals to Other Providers <thead> Reason for Referral Referral Start Date Provider Provider Contact Information Provider Address NO PHYSICIAN NO PHYSICIAN MONTSERRAT TERRAZAS MD Work Phone: [address] [address] CARLOS SOLANO MD Work Phone: [address] [place] [address], [facility] [id number] ENTER NAME IN NOTES OTHER Future Procedures <thead> Procedure Name Ordered Date Scheduled Date NPO except Meds May 05, 2023 10:04pm Octob er 2022 10:02pm Insert Peripheral IV Access May 05, 2023 1 0:04pm May 05, 2023 10:02pm Cardiac, BP, Pulse Ox Monitor May 05, 2023 10:04pm May 05, 2023 10:02pm Remove Clothing/Place in Gown May 05, 2023 10:04pm May 05, 2023 10:02pm VS - Adult May 05, 2023 10:04pm Octob er 2022 10:02pm Electrocardiogram, Complete May 10, 2023 1 0:16pm May 10, 2023 10:14pm Place in Observation May 11, 2023 1:16am N ovember 2022 1:10am CARDIOLOGY CONSULT May 11, 2023 1:16am Nov ember 2022 1:10am Resuscitation Status May 11, 2023 1:16am N ovember 2022 1:10am TRANSFER ROOM May 11, 2023 1:29am Novemb er 2022 INITIAL RESPIRATORY TREATMENT May 11, 2023 8:51am May 11, 2023 8:49am O2 2 Liters Nasal [place] May 11, 2023 8:51 am May 11, 2023 Consent form signed/placed on May 12, 2023 5:54pm May 12, 2023 11:00pm DISCHARGE PATIENT May 13, 2023 3:41pm Ovidio mber 2022 Cardiac, BP, Pulse Ox Monitor June 04 8:08pm June 04, 2023 8:07pm Insert Peripheral IV Access June 04, 2023 8:08pm June 04, 2023 8:07pm Remove Clothing/Place in Gown June 04 8:08pm June 04, 2023 8:07pm 2L NC Oxygen Therapy June 04, 2023 8:08pm June 04, 2023 8:07pm VS - Adult June 04, 2023 8:08pm Novem 2022 8:07pm Electrocardiogram, Complete June 04, 2023 8:08pm June 04, 2023 8:[address]pm Place in Observation June 04, 2023 11:38pm June 04, 2023 11:37pm TRANSFER ROOM June 05, 2023 12:05am Ovidio miranda 2022 Resuscitation Status June 05, 2023 12:12am June 05, 2023 12:08am CARDIOLOGY CONSULT June 05, 2023 7:37am No vember 2022 DISCHARGE PATIENT June 06, 2023 11:53am No vember 2022 NPO except Meds August 31, 2023 6:49pm Febru ann 2023 6:45pm Insert Peripheral IV Access August 31, 2023 6:49pm August 31, 2023 6:45pm Cardiac, BP, Pulse Ox Monitor August 31 6:49pm August 31, 2023 6:45pm Remove Clothing/Place in Gown August 31 6:49pm August 31, 2023 6:45pm VS - Adult August 31, 2023 6:49pm 2023 6:45pm Electrocardiogram, Complete August 31, 2023 6:49pm August 31, 2023 6:45pm NPO except Meds April 10, 2024 4:54pm April 10, 2024 4:51pm Insert Peripheral IV Access April 10, 2024 4: 54pm April 10, 2024 4:51pm Cardiac, BP, Pulse Ox Monitor April 10, 2024 4:54pm April 10, 2024 4:51pm Remove Clothing/Place in Gown April 10, 2024 4:54pm April 10, 2024 4:51pm VS - Adult April 10, 2024 4:54pm April 10, 2024 4:51pm Electrocardiogram, Complete April 10, 2024 4: 54pm April 10, 2024 4:51pm Future Medications Future medication information is unavailable Patient Instructions <tbody> Otitis Externa, Moks-ay-Ppyf Allergic Rhinitis, Adult, Ea sy-to-Read Ovarian Cyst, Jbhr-yy-Uwxl Abdominal Pain, Adult, Easy- to-Read Renal Mass Nonspecific Chest Pain, Adul t, Zxfs-qi-Wsum Acetaminophen; Hydrocodone t ablets or capsules Sucralfate tablets Pantoprazole tablets Ciprofloxacin tablets Nonspecific Chest Pain, Adul t, Kffg-tp-Bebp Alprazolam tablets Trazodone Tablets Aspirin Tablets Urinary Tract Infection, Milton lt, Lbxs-gs-Abre Dehydration, Adult, Easy-to- Read Urinary Tract Infection, Milton lt, Pnbw-mf-[facility]2024-10-02 20:37:07 Pt given printed and verbal discharge instructions regarding urinary tract infection with hematuria, generalized abdominal pain Prescriptions provided: ciprofloxacin HCl 500 mg tablet Discussed antibiotic therapy and to take until all completed unless adverse reaction occurs - if occurs, discontinue medication and follow up with pcp/seek medical attention Pt verbalized understanding of instructions, pt awake alert oriented, resp reg unlabored, skin w/d, color appropriate for race, moves all ext well,pt encouraged to follow up with pcp Advised to seek medical attention for new/prolonged/worsening of symptoms No adverse reaction to meds given in ER noted upon discharge PIV d'cd, dressing to site, catheter in tact. Awake, alert oriented, resp reg unlabored, skin w/d, pt leaving amb with steady gait, in no apparent distress [facility]anto Doan [id number] 18:50:37 Nurse Report Report given to renato. Chief complaint, assessment findings, infusion verify and orders reviewed. Plan of care discussed. Lola Reynoso RN Lola Reynoso [id number] 17:27:35 Pt arrived ambulatory complains of abdominal pain and points to her left upper abdominal. Pt states that last time she had this type of pain it was pancreatitis. Reports pain started at 1300 and reports pain is 9/10 and hurts whenever she eats. Harriett Mejia [id number] 11:11:13 Chief Complaint Patient presents with Shoulder Pain Left shoulder pain with limited range of motion x 6 months, takes OTC tylenol for the pain as needed but pain is getting worse. 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 Not working currently Marbin [id number] 09:19:27 Chief Complaint Patient presents with Hospital F/U [facility] ER follow up with admission on 12/04/2023 for chest pains. She had a stent placed by Dr. Arthur. Jennifer Del Castillo MA II Jennifer Cancino [id number] 10:49:31 Chief Complaint Patient presents with Anxiety Follow up on anxiety/depression. She states that it has gotten worse since last visit. She had an appointment with [facility] this morning and it was canceled due to internet outage. Jennifer Del Castillo MA II Jennifer Del Castillo MA, [facility]aryn [id number] 13:21:02 Chief Complaint Patient presents with [facility] told her she needed to go to a different doctor because they could not give her anything else Marbella Oh LVN Marbin [id number] 00:41:45 Pt given printed and verbal discharge [...] & in no apparent distress. Becky Rios [id number] 21:25:46 Pt arrived ambulatory but states feeling like she is going to pass out, Pt placed in ED wheelchair. Pt c/o " I have pain in my back on the left side, it mark when I pee, Im nauseous, I feel like Im going to pass out and I have been crapping on myself." Shaneka Atkinson [facility]l7092-12-44 22:58:41 Pt discharged with diagnosis of RUQ abd pain and chronic abd pain. Printed and verbal instructions reviewed with and given to pt. Prescriptions given x 2. Pt verbalized understanding of teaching, medications, and recommended follow-up. Denies questions or concerns at this time. Pt ambulatory at discharge. Appears in no apparent distress. No ataxia noted. EAR CONTROL OPERATOR Adeline Floyd [id number] 19:46:03 Pt states sharp pain to the RLQ that started today around noon, pt denies any urinary symptoms, vomiting X 2 EAR CONTROL OPERATOR Razia Yost [id number] 00:14:00 Awake, alert oriented X4, respiratory even and unlabored,skin w/d color appropriate for race, movesall ext well, pt encouraged to follow up with pcp and or return as needed Pt given printed and verbal discharge instructions regarding Abdominal pain , patient verbralized understanding and signature obtained, patient denies any other concerns. Prescriptions provided Advised to seek medical attention for new/prolonged/worsening of symptoms, No adverse reaction to meds given in ER noted upon discharge Pt ambulated to the [facility] with steady gait Razia Yost [place] [id number] 23:06:10 Received report from Evy RAMIREZ, assuming care. Brandy Lou [place] [id number] 22:38:[address] scan done. Patient states LQ abdominal pain now 01/14. T Guanaco Caceres [place] [id number] 22:00:00 POCT test negative. Patient states RLQ abdominal pain improved briefly with IV Morphine administration, then returned at 03/17. Dr Richards informed, and patient medicated as ordered with Fentanyl 75 mcg slow IVP. [place] [id number] 21:00:00 Medicated as per order with Zofran 4 mg slow IVP and Morphine 4 mg slow IVP for RLQ abdominal pain 03/17. [place] [id number] 20:17:52 Pt arrived ambulatory with complaints of RLQ abd pain since yesterday. Pt reports N/V/D. Last took Tylenol at 3pm. Denies dysuria but reports frequency. Hx: Anxiety, Depression, PTSD, Pancreatitis Aline Lou [place] [id number] 01:30:22 Discharged home ambulatory. Home instructions given. John Ventura [place] 673533-08-25 19:32:44 Pt CO of N/V, left lower back pain, painful urination and diarrhea since yesterday, states she was admitted last week for pancreatitis. Pt already promethazine tablets today with no relief. 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 No hematemesis. Has had about15 watery stools yesterday and about 15 times again today. No travel hx. No recent use of abx. No sick contacts. No exposure to bad food. Has taken Phenergan without relief of symptoms History provided by: Patient and medical records pie filling mixer used: No Abdominal Pain Pain location: Generalized Pain quality: cramping Pain severity: Moderate Onset quality: Gradual Duration: 2 days Timing: Intermittent Chronicity: New Context: not alcohol use, not awakening from sleep, not diet changes, not eating, not laxative use,not medication withdrawal, not previous surgeries, not recent illness, not recent travel, not retching, not sick contacts, not suspicious food intake and not trauma Relieved by: Nothing Worsened by: Nothing Associated symptoms: diarrhea, nausea and vomiting Associated symptoms: no anorexia, no belching, no chest pain, no chills, no constipation, no cough,no dysuria, no fatigue, no fever, no flatus, [...] adenoma on noncontrast imaging. RL: 460 AFC: 13245 Lab Results: Lab Results CBC WITH DIFF [...] POCT PREG TEST DATE COMP. METABOLIC PANEL (25684) NA 139 135 - 145 mmol/L K [...] CONTRAST CBC WITH DIFF COMP. METABOLIC PANEL (48184) LIPASE URINALYSIS POCT TEST Orders Placed This [...] every 6 (six) hours as needed for Pain(scale 7-10) (MUSCLE SPASM). OLANZAPINE (ZYPREXA) 15 MG [...] 6 (six) hours as needed for Pain (scale7-10). Indications: acute pain TRAZODONE HCL (TRAZODONE ORAL) Take 400 mg by mouth at bedtime. START taking Modified Medications as Prescribed No medications on file STOP taking these medications No medications on file Follow-up: Electronically signed by: Olivia Garcia MD 03/02/23121 [facility] - [id number] 02:22:03 Pt given printed and verbal discharge instructions regarding pancreatitis, encouraged hydration, Discussed ibuprofen and to take with food to avoid GI distress, alternate with Tylenol to help withpain and/or fever Pt verbalized understanding of instructions,pt encouraged to follow up with pcp and or Gi Advised to seek medical attention for new/prolonged/worsening of symptoms, No adverse reaction to meds given in ER noted upon discharge PIV d'cd, dressing to site, catheter in tact. Awake, alert oriented, resp reg unlabored, skin w/d, pt ambulated from ED, leaving in no apparent distress, Linda Ayala [id number] 22:53:36 Pt arrived ambulatory with complaints of vomiting and diarrhea that started soon after she was dc'dhome from the hospital today. Pt was hospitalized for pancreatitis. Pt reports vomiting more than 5times and having numerous episodes of diarrhea since 6pm. Pt states all shes had since coming home is water and 1 coke. Pt denies being prescribed any antiemetics Pt also reporting RLQ pain and chest tightness which she thinks might be from her anxiety. Aline Lou [facility] JohnstonVhczln5338-03-86 15:59:15 Problem: Pain Goal: Control of pain at [...] communication Outcome: Adequate for discharge Beata Lamar [facility] [id number] 00:21:19 Problem: Pain Goal: Control of pain at [...] Goal: Effective communication Outcome: Progressing as expected [place] [id number] 16:55:55 Problem: Pain Goal: Control of pain at [...] Goal: Effective communication Outcome: Progressing as expected [facility]2023-08-12 03:35:03 Problem: Pain Goal: Control of pain at [...] Goal: Effective communication Outcome: Progressing as expected [place] [id number] 19:41:18 Nurse Report Report given to JAMES Gatica. Chief complaint, assessment findings, infusion verify and orders reviewed. Plan of care discussed with both nurses. Stacie Man RN [facility] Stacie Man [facility]Ejqsvk8009-63-73 13:40:01 CC: patient presents to the ER with [...] amb without assistance. Appears in no distress. 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 CHEST 1 VW Final Result [...] process is identified in the chest. RL: 3396 END OF REPORT Lab Results: reviewed by [...] 0.01 - 0.07 10*3/uL COMP. METABOLIC PANEL (19692) - Abnormal NA 138 135 - 145 [...] INTERPRETATION CBC WITH DIFF COMP. METABOLIC PANEL (19040) LIPASE Orders Placed This Encounter Medications ibuprofen [...] 02/15/231344 Medical Screening Begins CANDI WISE -- 02/15/23 134 First Provider Evaluation CANDI WISE -- No notes of EC Admission Criteria type on file. ED COURSE ED Course as of 02/15/231909Feb 15, 2023 1803 Accepted by Hospitalist for observation admission for acute appendicitis , will add CT abdomenon way to floor [PD] 1633 Actively vomiting in the WR and now reports abdominal pain . Will add labs . Fluids, zofran , she is becoming hyper anxious , repeating " there is something terribly wrong with me ". Will add ativan 1 mg . Pending labs [PD] ED Course User Index [PD] Leeanne Wise, CHICHO Diagnosis/Impression as of 02/15/231909 Acute pancreatitis, unspecified complication status, unspecified pancreatitis type Obesity (BMI 30-39.9) Anxiety PTSD (post-traumatic stress disorder) Major depressive disorder, remission status unspecified, unspecified whether recurrent Elevated d-dimer Procedures: EKG-12 Lead ROUTINE ONCE Date/Time: 02/15/2023 6:05 PM Performed by: Leeanne Wise NP Authorized by: Leeanne Wise NP ECG reviewed by ED Physician in the absence of a review nurse: yes Previous ECG: Previous ECG: Unavailable Interpretation: [...] ECG/medicine tests: ordered and independent interpretation performed. Decision- making details documented in ED Course. Details: Normal [...] this a planned re-admission?: No Treatment Team: [facility] [[id number]] Is this patient COVID positive or a patient under investigation (PUI)?: No Electronically signed by: Leeanne Wise NP 02/15/231910 Associated attestation - Bushra Rios DO - 02/16/2023 7:30 AM CDT I was personally available for consultation in the Emergency Department during this encounter and patient evaluation by Leeanne Wise. [facility]
[2024-05-10 20:48] LABS: Absolute Basophils 0.1 K/uL (0-0.5); Absolute Eosinophils 0.3 K/uL (0-0.5); Absolute Lymphocytes (CBC) 2.7 K/uL (0.7-4.9); Absolute Monocytes 0.4 K/uL (0.1-1.3); Absolute Neutrophil 5.4 K/uL (1.8-8.0); Basophils % 1.1 % (0-1.3); Eosinophils % 3.4 % (0-4.4); Hematocrit 36.8 % (36.0-45.0); Hemoglobin 12.5 g/dL (12.0-15.0); Lymphocytes % 30.5 % (15.3-44.8); MCH 27.1 pg (27.0-35.0); MCHC 33.9 g/dL (32.0-36.0); MCV 79.9 fL (80-100); MPV 7.6 fL (7.6-11.3); Monocytes % 4.4 % (3.3-12.3); Neutrophils % 60.6 % (41.7-73.7); Nucleated Red Blood Cells % 0.2 % (0-0); Platelets 309 thou/uL (152-406); RBC Red Blood Cell Count 4.61 M/uL (3.86-4.86); Red Cell Distribution Width 16.2 % (12.1-15.2)
--- NOTE | 2024-05-10 20:49 | RAD REPORT ---
EXAMINATION: ONE VIEW CHEST XR CLINICAL INDICATION: Female, 44 years old.CHEST PAIN TECHNIQUE: 1 View, AP supine, X-ray of the chest was performed. [id number]. COMPARISON: 02/21/2024 FINDINGS: Lungs and pleura: Clear lungs. No effusion. Heart and mediastinum: Normal heart size. Unremarkable mediastinal contours. Osseous structures: No acute abnormality. Tubes/lines: None Other: None. IMPRESSION: No acute intrathoracic abnormality.
[2024-05-10 21:08] LABS: ALT/SGPT 28 U/L (13-56); AST/SGOT 18 U/L (15-37); Albumin 2.8 g/dL (3.4-5.0); Albumin/Globulin Ratio 0.8 (1.1-1.8); Alkaline Phosphatase 72 U/L (45-117); Anion Gap 9.6 mEq/L (5.0-15.0); BUN Blood Urea Nitrogen 9 mg/dL (7-18); Bicarbonate 27 mEq/L (21-32); Globulin 3.4 g/dL (2.3-3.5); Glomerular Filtration Rate 91 ml/min (=/>90); Glucose Level 124 mg/dL (74-106); Lipase 31 U/L (13-75); NT PRO-BNP 39 pg/mL (<125); Potassium 3.6 mEq/L (3.5-5.1); Protein, Total 6.2 g/dL (6.4-8.2); Sodium Level 141 mEq/L (136-145)
[2024-05-10 21:12] LABS: Bilirubin Direct < 0.2 mg/dL (0-0.2); Bilirubin Total < 0.2 mg/dL (0.2-1.0); Troponin High Sensitivity < 3.0 pg/mL (<58.9)
[2024-05-10] MEDS ORDERED: ACETAMINOPHEN 500 MG TAB ONE (21:20)
[2024-05-10] MEDS ORDERED: IBUPROFEN 400 MG TAB ONE (21:21)
[2024-05-10] MEDS ORDERED: ONDANSETRON 4 MG (ODT) TAB ONE (21:21)
[2024-05-10] MEDS ORDERED: ONDANSETRON 4 MG/2 ML VIAL ONE (21:43)
[2024-05-10] MEDS ORDERED: LORazepam 2 MG/ML VIAL ONE (21:44)
[2024-05-10] MEDS ORDERED: KETOROLAC 30 MG/ML INJ ONE (21:50)
--- NOTE | 2024-05-10 23:11 | EDPHYS ---
Physician Documentation [facility] Name: Charity Hanks Age: 44 yrs Sex: Female : 1980 Arrival Date: 05/10/2024 Time: 20:11 Bed 19 Private MD: ED Physician Marty Singh HPI: 05/10 20:14 This 44 yrs old Female presents to ER via Unassigned with complaints of Chest sp4 Pain. 22:40 44-year-old female with history of anxiety, depression, coronary artery disease, sp4 pancreatitis, PTSD, presents with acute complaint of chest pain with EMS. Chest pain started at 5 PM today. EMS reports that they have administered intramuscular fentanyl 50 mcg prior to arrival. Patient has had left heart cath 12/06/2023. Patient was given right coronary artery stent Synergy drug-eluting stent. Additional findings on a cath reported left main large normal vessel, left anterior descending is a large vessel proximal segment is normal mid segment of multiple areas 30 to 40% stenosis and luminal irregularities. Normal diagonal branches. Left circumflex artery large and normal, right coronary artery dominant circulation 30 to 40% stenosis with PDA stenting 70 to 90% stenotic area. Reported to be successful PCI, LVEDP 15 mmHg. Severe right PDA stenosis which is the culprit status post successful PCI. Mild to moderate coronary artery disease elsewhere. Patient was prescribed Plavix on discharge. . Historical: - Allergies: 20:17 No Known Allergies; me1 - PMHx: 20:17 Anxiety; depressive disorder; Myocardial infarction; Pancreatitis; PTSD; me1 - PSHx: 20:17 cardiac stent; me1 - Immunization history:: Adult Immunizations up to date. - Infectious Disease History:: Denies. - Social history:: Smoking status: Patient reports the use of cigarette tobacco products, smokes one-half pack cigarettes per day. ROS: 22:44 Constitutional: Negative for fever, chills, and weight loss, positive for chest pain sp4 22:44 All other systems are negative, Exam: 22:44 Constitutional: This is a well developed, well nourished patient who is awake, alert, sp4 and in no acute distress. Head/Face: Normocephalic, atraumatic. Eyes: Pupils equal round and reactive to light, extra-ocular motions intact. Lids and lashes normal. Conjunctiva and sclera are not injected. Cornea within normal limits. Periorbital areas with no swelling, redness, or edema. ENT: Nares patent. No nasal discharge, no septal abnormalities noted. Tympanic membranes are normal and external auditory canals are clear. Oropharynx with no redness, swelling, or masses, exudates, or evidence of obstruction, uvula midline. Mucous membranes moist. Neck: Trachea midline, no thyromegaly or masses palpated, and no cervical lymphadenopathy. Supple, full range of motion without nuchal rigidity, or vertebral point tenderness. Chest/axilla: Normal chest wall appearance and motion. Nontender with no deformity. No lesions are appreciated. Cardiovascular: Regular rate and rhythm with a normal S1 and S2. No gallops, murmurs, or rubs. Normal PMI, no JVD. No pulse deficits. Respiratory: Lungs have equal breath sounds bilaterally, clear to auscultation and percussion. No rales, rhonchi or wheezes noted. No increased work of breathing, no retractions or nasal flaring. Abdomen/GI: Soft, with normal bowel sounds. No distension or tympany. No guarding or rebound. No evidence of tenderness throughout. Back: No spinal tenderness. No costovertebral tenderness. Skin: Warm, dry with normal turgor. Normal color with no rashes, no lesions, and no evidence of cellulitis. MS/ Extremity: Pulses equal, no cyanosis. Neurovascular intact. Full, normal range of motion. Neuro: Awake and alert, GCS 15, oriented to person, place, time, and situation. Cranial nerves II-XII grossly intact. Motor strength 5/5 in all extremities. Sensory grossly intact. Psych: Awake, alert, with orientation to person, place and time. Behavior, mood, and affect are within normal limits 05/11 06:18 ECG was reviewed by the Attending Physician. EKG at 2020 normal sinus rhythm normal EKG sp4 Vital Signs: 05/10 20:14 BP 126 / 93; Pulse 100; Resp 20; Temp 98.3; Pulse Ox 97% ; Weight 104.33 kg; Height 5 me1 ft. 2 in. ; Pain 10/10; 21:00 BP 125 / 65; Pulse 91; Resp 18; Pulse Ox 100% on R/A; br2 22:06 BP 143 / 70; Pulse 96; Resp 18; Temp 97.2; Pulse Ox 99% ; br2 23:00 BP 116 / 74; Pulse 73; Resp 18 S; Temp 97.1; Pulse Ox 95% on R/A; Pain 0/10; br2 20:14 Body Mass Index 42.07 (104.33 kg, 157.48 cm) me1 20:14 Pain Scale: Adult me1 23:00 Pain Scale: Adult br2 [place] Coma Score: 22:44 Eye Response: spontaneous(4). Motor Response: obeys commands(6). Verbal Response: sp4 oriented(5). Total: 15. MDM: 20:15 Medical Screening Exam initiated sp4 22:39 ED course: EXAMINATION: ONE VIEW CHEST XR CLINICAL INDICATION: Female, 44 years sp4 old.CHEST PAIN TECHNIQUE: 1 View, AP supine, X-ray of the chest was performed. [id number]. COMPARISON: 02/21/2024 FINDINGS: Lungs and pleura: Clear lungs. No effusion. Heart and mediastinum: Normal heart size. Unremarkable mediastinal contours. Osseous structures: No acute abnormality. Tubes/lines: None Other: None. IMPRESSION: No acute intrathoracic abnormality. . 05/11 06:19 Differential diagnosis: anxiety, coronary artery disease chest wall pain, congestive sp4 heart failure costochondritis, esophagitis, gastritis. HEART Score: History: Slightly Suspicious (0), ECG: Normal (0), Age: < or = 45 years (0), Risk Factors: > or = 3 Risk factors for atherosclerotic disease (2), Troponin: < or = 1 x Normal Limit (0), Total Score = 2. 06:20 The patient was not given aspirin in the Emergency Department. Patient reports taking sp4 aspirin within the past 24 hours. Data reviewed: vital signs, nurses notes, EMS record, old medical records, lab test result(s), EKG, radiologic studies, plain films. ED course: Troponin x 2 is negative. Patient stable for discharge home.. 05/10 20:15 Order name: Basic Metabolic Panel; Complete Time: 21:12 sp4 05/10 20:15 Order name: CBC with Diff; Complete Time: 21:12 sp4 05/10 20:15 Order name: LFT's; Complete Time: 21:12 4 05/10 20:15 Order name: NT PRO-BNP; Complete Time: 21:12 4 05/10 20:15 Order name: Troponin HS; Complete Time: 21:12 4 05/10 20:15 Order name: Lipase; Complete Time: 21:12 4 05/10 21:29 Order name: Troponin High Sensitivity; Complete Time: 23:10 4 05/10 20:15 Order name: XRAY Chest (1 view); Complete Time: 21:12 4 05/10 20:15 Order name: Cardiac monitoring; Complete Time: 21:19 4 05/10 20:15 Order name: EKG - Nurse/Tech; Complete Time: 22:06 [facility] 05/10 20:15 Order name: IV Saline Lock; Complete Time: 21:20 [facility] 05/10 20:15 Order name: Labs collected and sent; Complete Time: 21:20 [facility] 05/10 20:15 Order name: O2 Per Protocol; Complete Time: 21:20 [facility] 05/10 20:15 Order name: O2 Sat Monitoring; Complete Time: 21:20 sp4 EC:18 Rate is 96 beats/min. Rhythm is regular, Normal Sinus Rhythm. QRS [place] is Normal. [place] sp4 interval is normal. QRS interval is normal. QT interval is normal. No Q waves. T waves are Normal. No ST changes noted. Clinical impression: No evidence of ischemia. Interpreted by me. Reviewed by me. Administered Medications: 05/10 21:19 Drug: Ondansetron PO 4 mg PO once Route: PO; br2 22:00 Follow up: Response: No adverse reaction br2 21:27 Drug: Acetaminophen PO 1000 mg PO once Route: PO; ha1 22:00 Follow up: Response: No adverse reaction br2 21:27 Drug: Ibuprofen PO 800 mg PO once Route: PO; ha1 22:00 Follow up: Response: No adverse reaction br2 21:57 Drug: Ativan IVP 2 mg IVP once Route: IVP; Site: right antecubital; br2 22:30 Follow up: Response: No adverse reaction; Pain is decreased br2 21:57 Drug: Ondansetron IVP 4 mg IVP once; over 2 minutes Route: IVP; Site: right antecubital;br2 22:30 Follow up: Response: No adverse reaction br2 22:00 Drug: Ketorolac IVP 30 mg IVP once Route: IVP; Site: right antecubital; br2 22:30 Follow up: Response: No adverse reaction br2 Disposition Summary: 05/10/24 23:11 Discharge Ordered Notes: Location: Home sp4 Problem: new sp4 Symptoms: have improved sp4 Condition: Stable sp4 Diagnosis - Chest pain, unspecified sp4 - Nausea with vomiting, unspecified sp4 Followup: sp4 - With: Neil Arthur MD - When: 7 - 10 days - Reason: Recheck today's complaints Discharge Instructions: - Discharge Summary Sheet sp4 - Nonspecific Chest Pain, Adult sp4 Forms: - Patient Portal Instructions sp4 Signatures: Dispatcher [employer] Nelly Zhao RN RN ha1 Marty Singh MD MD sp4 Yaritza Jane RN RN me1 Aarti Dodge RN RN br2 Corrections: (The following items were deleted from the chart) 20:16 20:16 LIPASE+C.LAB.BRZ ordered. EDMS EDMS
--- NOTE | 2024-05-10 23:11 | ER ---
Nurse's Notes [facility] Name: Charity Hanks Age: 44 yrs Sex: Female : 1980 Arrival Date: 05/10/2024 Time: 20:11 Bed 19 Private MD: Diagnosis: Chest pain, unspecified;Nausea with vomiting, unspecified Presentation: 05/10 20:14 Chief complaint: EMS states: toned out for chest pain that started about 2 hours ago. me1 Mid sternal that radiates to left shoulder and back. c/o nausea w/pain. Fentanyl 50 mcg IM given by EMS. BGL 145. patient took 3 baby aspirin before ems arrived. Coronavirus screen: Vaccine status: Patient reports receiving the 2nd dose of the covid vaccine. Ebola Screen: No symptoms or risks identified at this time. Initial Sepsis Screen: Does the patient meet any 2 criteria? No. Patient's initial sepsis screen is negative. Risk Assessment: Do you want to hurt yourself or someone else? Patient reports no desire to harm self or others. Onset of symptoms was May 10, 2024 at 18:00. 20:14 Method Of Arrival: EMS[facility] me1 20:14 Acuity: CARLOS 3 me1 20:16 Initial Sepsis Screen: Does the patient have a suspected source of infection? No. br2 Patient's initial sepsis screen is negative. Historical: - Allergies: 20:17 No Known Allergies; me1 - PMHx: 20:17 Anxiety; depressive disorder; Myocardial infarction; Pancreatitis; PTSD; me1 - PSHx: 20:17 cardiac stent; me1 - Immunization history:: Adult Immunizations up to date. - Infectious Disease History:: Denies. - Social history:: Smoking status: Patient reports the use of cigarette tobacco products, smokes one-half pack cigarettes per day. Screenin:26 [facility] ED Fall Risk Assessment (Adult) History of falling in the last 3 months, br2 including since admission No falls in past 3 months (0 pts) Confusion or Disorientation No (0 pts) Intoxicated or Sedated No (0 pts) Impaired Gait No (0 pts) Mobility Assist Device Used No (0 pt) Altered Elimination No (0 pt) Score/Fall Risk Level 0 - 2 = Low Risk. Abuse screen: Denies threats or abuse. Denies injuries from another. Nutritional screening: No deficits noted. Tuberculosis screening: No symptoms or risk factors identified. Assessment: 20:16 Cardiovascular: Reports chest pain, Heart tones present Capillary refill < 3 seconds br2 Rhythm is regular. 20:26 Reassessment: Patient and/or family updated on plan of care and expected duration. Pain br2 level reassessed. Patient is alert, oriented x 3, equal unlabored respirations, skin warm/dry/pink. General: Appears uncomfortable, Behavior is calm, cooperative. Pain: Complains of pain in chest Pain radiates to left jaw Pain began 2 hours ago. 22:00 Reassessment: No changes from previously documented assessment. Patient and/or family br2 updated on plan of care and expected duration. Pain level reassessed. Patient is alert, oriented x 3, equal unlabored respirations, skin warm/dry/pink. 22:39 Reassessment: No changes from previously documented assessment. Patient and/or family br2 updated on plan of care and expected duration. Pain level reassessed. Patient is alert, oriented x 3, equal unlabored respirations, skin warm/dry/pink. Patient states feeling better. Patient states symptoms have improved. 23:15 Reassessment: Patient and/or family updated on plan of care and expected duration. Pain br2 level reassessed. Patient is alert, oriented x 3, equal unlabored respirations, skin warm/dry/pink. Patient states feeling better. Patient states symptoms have improved. Vital Signs: 20:14 BP 126 / 93; Pulse 100; Resp 20; Temp 98.3; Pulse Ox 97% ; Weight 104.33 kg; Height 5 me1 ft. 2 in. ; Pain 10/10; 21:00 BP 125 / 65; Pulse 91; Resp 18; Pulse Ox 100% on R/A; br2 22:06 BP 143 / 70; Pulse 96; Resp 18; Temp 97.2; Pulse Ox 99% ; br2 23:00 BP 116 / 74; Pulse 73; Resp 18 S; Temp 97.1; Pulse Ox 95% on R/A; Pain 0/10; br2 20:14 Body Mass Index 42.07 (104.33 kg, 157.48 cm) me1 20:14 Pain Scale: Adult me1 23:00 Pain Scale: Adult br2 [place] Coma Score: 22:44 Eye Response: spontaneous(4). Motor Response: obeys commands(6). Verbal Response: sp4 oriented(5). Total: 15. ED Course: 20:14 Patient arrived in ED. me1 20:14 Marty Singh MD is Attending Physician. sp4 20:17 Triage completed. me1 20:17 Arm band placed on Patient placed in an exam room. me1 20:26 Aarti Dodge, RN is Primary Nurse. br2 20:26 Placed in gown. Bed in low position. Call light in reach. Side rails up X 1. Provided br2 Education on: PLAN OF CARE. Client placed on continuous cardiac and pulse oximetry monitoring. NIBP monitoring applied. color television console monitor on. 20:33 Inserted saline lock: 22 gauge in right forearm, using aseptic technique. Blood kmf collected. Flushed with 10 mL NS. 20:42 XRAY Chest (1 view) In Process Unspecified. EDMS 22:05 EKG done, by technical account executive. reviewed by Marty Singh MD. oh1 23:10 Neil Arthur MD is Referral Physician. sp4 23:16 IV discontinued, intact, bleeding controlled, No redness/swelling at site. Pressure br2 dressing applied. 23:17 No provider procedures requiring assistance completed. Patient maintains SpO2 br2 saturation greater than 95% on room air. Administered Medications: 21:19 Drug: Ondansetron PO 4 mg PO once Route: PO; br2 22:00 Follow up: Response: No adverse reaction br2 21:27 Drug: Acetaminophen PO 1000 mg PO once Route: PO; ha1 22:00 Follow up: Response: No adverse reaction br2 21:27 Drug: Ibuprofen PO 800 mg PO once Route: PO; ha1 22:00 Follow up: Response: No adverse reaction br2 21:57 Drug: Ativan IVP 2 mg IVP once Route: IVP; Site: right antecubital; br2 22:30 Follow up: Response: No adverse reaction; Pain is decreased br2 21:57 Drug: Ondansetron IVP 4 mg IVP once; over 2 minutes Route: IVP; Site: right antecubital;br2 22:30 Follow up: Response: No adverse reaction br2 22:00 Drug: Ketorolac IVP 30 mg IVP once Route: IVP; Site: right antecubital; br2 22:30 Follow up: Response: No adverse reaction br2 Medication: 20:26 VIS not applicable for this client. br2 Outcome: 23:11 Discharge ordered by . sp4 23:17 Discharged to home ambulatory, br2 23:17 Condition: improved 23:17 Discharge instructions given to patient, Instructed on discharge instructions, follow up and referral plans. Demonstrated understanding of instructions, follow-up care, 23:21 Patient left the ED. br2 Signatures: Dispatcher [employer] Nelly Zhao RN RN ha1 Marty Singh MD MD sp4 Yaritza Jane RN RN me1 Kellee Bee Aarti Dodge RN RN br2 Jessy Soto oh1
[2024-05-10 23:43] VITALS: BP 143/70; TEMP 97.2; O2SAT 99
--- NOTE | 2024-05-11 12:14 | EKG ---
Test Date: 2024-05-10 Test Time: 20:20:54 Tool Liaison: NAOMI MEASUREMENT RESULTS: Intervals: Rate: 96 CA: 148 QRSD: 80 QT: 356 QTc: 449 [place]: P: 49 CA: 148 QRS: -10 T: 37 INTERPRETIVE STATEMENTS: Normal sinus rhythm Cannot rule out Anterior infarct, age undetermined Abnormal ECG Compared to ECG 03/02/2024 00:42:37 Myocardial infarct finding now present Electronically Signed On 05-11-24 12:12:53 DENT REMOVER by James Patel
== END 2024-05-10 23:21 | disposition home or self-care (01) ==
LOC: ER 20:11
DX: R07.9 Chest pain, unspecified (principal); R11.2 Nausea with vomiting, unspecified; I25.2 Old myocardial infarction; Z95.5 Presence of coronary angioplasty implant and graft; Z95.818 Presence of other cardiac implants and grafts
CPT/HCPCS: 93005; 85025; 80048; 36415; 80076; 84484 ×2; 83690; 83880; 71045; 96375; 96374; 99285; Q0162; J2405

== ENCOUNTER 2024-05-11 15:09 | Observation (INO) | payer OTHER ==
[2024-05-11 15:48] LABS: Absolute Basophils 0.1 K/uL (0-0.5); Absolute Eosinophils 0.3 K/uL (0-0.5); Absolute Lymphocytes (CBC) 2.2 K/uL (0.7-4.9); Absolute Monocytes 0.5 K/uL (0.1-1.3); Absolute Neutrophil 5.4 K/uL (1.8-8.0); Eosinophils % 3.9 % (0-4.4); Hematocrit 38.4 % (36.0-45.0); Hemoglobin 12.8 g/dL (12.0-15.0); MCH 26.8 pg (27.0-35.0); MCHC 33.4 g/dL (32.0-36.0); MCV 80.1 fL (80-100); MPV 7.6 fL (7.6-11.3); Monocytes % 6.2 % (3.3-12.3); Neutrophils % 62.9 % (41.7-73.7); Platelets 291 thou/uL (152-406); RBC Red Blood Cell Count 4.79 M/uL (3.86-4.86); Red Cell Distribution Width 15.9 % (12.1-15.2)
[2024-05-11 15:49] LABS: D-Dimer 0.219 FEUug/mL (0-0.500); Protime INR 0.98
[2024-05-11 16:12] LABS: Anion Gap 7.8 mEq/L (5.0-15.0); Potassium 3.8 mEq/L (3.5-5.1); Troponin High Sensitivity 3.1 pg/mL (<58.9)
--- NOTE | 2024-05-11 16:18 | RAD REPORT ---
Procedure: Chest Single View HISTORY: Chest pain COMPARISON: May 10, 2024 FINDINGS: The lungs appear clear of acute infiltrate. No significant pleural effusion noted. The heart is borderline enlarged. IMPRESSION: No acute abnormality is displayed.
--- NOTE | 2024-05-11 17:01 | ER ---
Nurse's Notes [facility] Name: Charity Hanks Age: 44 yrs Sex: Female : 1980 Arrival Date: 05/11/2024 Time: 15:09 Bed 13 Private MD: Diagnosis: Chest pain, unspecified Presentation: 05/11 15:20 Chief complaint: Patient states: "I was just seen here with chest pain last night but I me1 saw my surgical device sales representative today and he wanted me to come back to the ER to be admitted". 15:20 Coronavirus screen: At this time, the client does not indicate any symptoms associated aa5 with coronavirus-19. Ebola Screen: Patient denies travel to an Ebola-affected area in the 21 days before illness onset. Initial Sepsis Screen: Does the patient meet any 2 criteria? No. Patient's initial sepsis screen is negative. Does the patient have a suspected source of infection? No. Patient's initial sepsis screen is negative. Risk Assessment: Do you want to hurt yourself or someone else? Patient reports no desire to harm self or others. Onset of symptoms was May 11, 2024. 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 - Infectious Disease History:: Denies. - Family history:: not pertinent. - Social history:: Smoking status: Patient reports the use of cigarette tobacco products, smokes one-half pack cigarettes per day. - Hospitalizations: : No recent hospitalization is reported. Screenin:30 [facility] ED Fall Risk Assessment (Adult) History of falling in the last 3 months, me1 including since admission No falls in past 3 months (0 pts) Confusion or Disorientation No (0 pts) Intoxicated or Sedated No (0 pts) Impaired Gait No (0 pts) Mobility Assist Device Used No (0 pt) Altered Elimination No (0 pt) Score/Fall Risk Level 0 - 2 = Low Risk Maintained a safe environment, Provided non-skid footwear, Hourly rounding (assess needs \\T\\ fall precautionary measures) done. Abuse screen: Denies threats or abuse. Nutritional screening: No deficits noted. Tuberculosis screening: No symptoms or risk factors identified. Assessment: 16:30 General: Appears uncomfortable, unkempt, Behavior is cooperative, appropriate for age, me1 Reports "I was just seen here with chest pain last night but I saw my surgical device sales representative today and he wanted me to come back to the ER to be admitted". Pain: Complains of pain in chest Pain radiates to anterior aspect of left shoulder Pain currently is 9 out of 10 on a pain scale. Quality of pain is described as sharp, Pain began 1 day ago. Is continuous. Neuro: Level of Consciousness is awake, alert, obeys commands, Oriented to person, place, time, situation, Appropriate for age. Cardiovascular: Patient's skin is warm and dry. Cardiovascular: Reports chest pain. Respiratory: Airway is patent Respiratory effort is even, unlabored, Respiratory pattern is regular, symmetrical. GI: No signs and/or symptoms were reported involving the gastrointestinal system. : No signs and/or symptoms were reported regarding the genitourinary system. EENT: No signs and/or symptoms were reported regarding the EENT system. Derm: Skin is intact, is healthy with good turgor, Skin is pink, warm \\T\\ dry. Musculoskeletal: No signs and/or symptoms reported regarding the musculoskeletal system. 19:05 Reassessment: No changes from previously documented assessment. Patient and/or family rg5 updated on plan of care and expected duration. Pain level reassessed. Patient is alert, oriented x 3, equal unlabored respirations, skin warm/dry/pink. Vital Signs: 15:20 BP 148 / 107; Pulse 83; Resp 18 S; Temp 98.3(TE); Pulse Ox 97% on R/A; Weight 104.33 kg aa5 (R); Height 5 ft. 2 in. (R); 16:30 BP 113 / 100; Pulse 79; Resp 16; Pulse Ox 99% ; me1 17:30 BP 130 / 77; Pulse 77; Resp 24; Pulse Ox 94% ; me1 18:15 BP 135 / 101; Pulse 76; Resp 20; Pulse Ox 98% ; me1 18:49 Pain 4/10; me1 19:15 BP 129 / 93; Pulse 81; Resp 17; Temp 98.2(O); Pulse Ox 96% on R/A; rg5 20:01 BP 137 / 86; Pulse 82; Resp 17; Temp 98(O); Pulse Ox 98% on R/A; rg5 15:20 Body Mass Index 42.07 (104.33 kg, 157.48 cm) aa5 18:49 Pain Scale: Adult me1 ED Course: 15:13 Patient arrived in ED. mg5 15:14 Claudia Harris PA-C is PHCP. sb4 15:14 Mayank Butler MD is Attending Physician. sb4 15:16 Attending Physician role handed off by Mayank Butler MD rn 15:16 Carmine Jackson MD is Attending Physician. rn 15:20 Arm band placed on. aa5 15:26 EKG done, by ED staff, reviewed by Carmine Jackson MD. aa5 15:37 Initial lab(s) drawn, by me, sent to lab. Inserted saline lock: 22 gauge in right aa5 forearm, using aseptic technique. Blood collected. Flushed with 10 mL NS. 15:41 Triage completed. aa5 16:10 XRAY Chest (1 view) In Process Unspecified. EDMS 16:15 Client placed on continuous cardiac and pulse oximetry monitoring. NIBP monitoring me1 applied. roofing technician on. Pulse ox on. NIBP on. 16:30 No provider procedures requiring assistance completed. Patient maintains SpO2 me1 saturation greater than 95% on room air. 16:30 Patient has correct armband on for positive identification. Bed in low position. Call me1 light in reach. Side rails up X2. Provided Education on: POC. Verbalized understanding. . 17:00 Thai David is Hospitalizing Provider. rn 17:31 Yaritza Jane, JAMES is Primary Nurse. me1 20:03 Patient admitted, IV remains in place. rg5 Administered Medications: 17:35 Drug: morphine IVP or IV 4 mg IVP once over 4 mins Route: IVP; Infused Over: 4 mins; me1 Site: right forearm; 18:49 Follow up: Pain 4/10 Adult; Response: No adverse reaction; Pain is decreased me1 Medication: 16:30 VIS not applicable for this client. me1 Outcome: 17:01 Decision to Hospitalize by Provider. rn 20:02 Admitted to Med/surg accompanied by nurse, via wheelchair, rg5 20:02 Condition: stable 20:02 Demonstrated understanding of instructions, 20:04 Patient left the ED. rg5 Signatures: Dispatcher [employer] EDMS Carmine Jackson MD MD rn Calderon, Audri, RN RN aa5 Claudia Harris, PACaliC PADiane sb4 Yaritza Jane RN RN me1 Tiff Escoto mg5 Daron Weston RN RN rg5 Corrections: (The following items were deleted from the chart) 18:28 15:20 Chief complaint: Patient states: "I was just seen here with chest pain last night me1 but I saw my surgical device sales representative today and he wanted me to come back to the ER to be admitted" 5 18:51 18:29 General: Appears uncomfortable, unkempt, Behavior is cooperative, appropriate for me1 age, Reports "I was just seen here with chest pain last night but I saw my surgical device sales representative today and he wanted me to come back to the ER to be admitted" tn1 18:51 18:29 Pain: Complains of pain in chest Pain radiates to anterior aspect of left me1 shoulder Pain currently is 9 out of 10 on a pain scale. Quality of pain is described as sharp, Pain began 1 day ago. Is continuous, [facility] 18:51 18:29 Neuro: Level of Consciousness is awake, alert, obeys commands, Oriented to me1 person, place, time, situation, Appropriate for age me1 18:51 18:29 Cardiovascular: Patient's skin is warm and dry. tn1 [facility] 18:51 18:29 Respiratory: Airway is patent Respiratory effort is even, unlabored, Respiratory tn1 pattern is regular, symmetrical, [facility] 18:51 18:29 GI: No signs and/or symptoms were reported involving the gastrointestinal system. tn1 [facility] 18:51 18:29 : No signs and/or symptoms were reported regarding the genitourinary system. [facility] 18:51 18:29 EENT: No signs and/or symptoms were reported regarding the EENT system. tn1 [facility] 18:51 18:29 Derm: Skin is intact, is healthy with good turgor, Skin is pink, warm \\T\\ dry. me1 me1 18:51 18:29 Cardiovascular: Reports chest pain, me1 me1 18:51 18:29 Musculoskeletal: No signs and/or symptoms reported regarding the musculoskeletal tn1 system. me1
--- NOTE | 2024-05-11 17:01 | EDPHYS ---
Physician Documentation [facility] Name: Charity Hanks Age: 44 yrs Sex: Female : 1980 Arrival Date: 05/11/2024 Time: 15:09 Bed 13 Private MD: ED Physician Carmine Jackson HPI: 05/11 15:26 This 44 yrs old Female presents to ER via Unassigned with complaints of Chest Pain. rn 15:26 The patient or guardian reports chest pain that is located primarily in the substernal rn area. Onset: 3 day(s) ago. The pain does not radiate. The chest pain is described as aching, a heaviness. Duration: The patient or guardian reports multiple episodes, that are intermittent. Modifying factors: The symptoms are alleviated by nothing. the symptoms are aggravated by nothing. Severity of pain: At its worst the pain was moderate in the emergency department the pain is unchanged. The patient has experienced similar episodes in the past. Patient reports 3 days of substernal chest pain. Seen by Dr. Arthur today and sent in for evaluation and admission.. 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 - Infectious Disease History:: Denies. - Family history:: not pertinent. - Social history:: Smoking status: Patient reports the use of cigarette tobacco products, smokes one-half pack cigarettes per day. - Hospitalizations: : No recent hospitalization is reported. ROS: 15:26 Constitutional: Negative for fever, chills, and weight loss, Cardiovascular: Positive rn for chest pain Respiratory: Negative for shortness of breath, cough, wheezing, and pleuritic chest pain, Abdomen/GI: Negative for abdominal pain, nausea, vomiting, diarrhea, and constipation, Back: Negative for injury and pain, MS/Extremity: Negative for injury and deformity, Skin: Negative for injury, rash, and discoloration, Neuro: Negative for headache, weakness, numbness, tingling, and seizure, Exam: 15:26 Constitutional: This is a well developed, well nourished patient who is awake, alert, rn and in no acute distress. Cardiovascular: Regular rate and rhythm. No pulse deficits. Respiratory: Emotional and hyperventilating Abdomen/GI: Soft, nontender MS/ Extremity: Pulses equal, no cyanosis Neuro: Awake and alert, GCS 15 15:29 ECG was reviewed by the Attending Physician. rn Vital Signs: 15:20 BP 148 / 107; Pulse 83; Resp 18 S; Temp 98.3(TE); Pulse Ox 97% on R/A; Weight 104.33 kg aa5 (R); Height 5 ft. 2 in. (R); 16:30 BP 113 / 100; Pulse 79; Resp 16; Pulse Ox 99% ; me1 17:30 BP 130 / 77; Pulse 77; Resp 24; Pulse Ox 94% ; me1 18:15 BP 135 / 101; Pulse 76; Resp 20; Pulse Ox 98% ; me1 18:49 Pain 4/10; me1 19:15 BP 129 / 93; Pulse 81; Resp 17; Temp 98.2(O); Pulse Ox 96% on R/A; rg5 20:01 BP 137 / 86; Pulse 82; Resp 17; Temp 98(O); Pulse Ox 98% on R/A; rg5 15:20 Body Mass Index 42.07 (104.33 kg, 157.48 cm) aa5 18:49 Pain Scale: Adult me1 MDM: 15:16 Medical Screening Exam initiated rn 17:00 Differential diagnosis: acute myocardial infarction, acute pericarditis, anxiety, rn coronary artery disease pleurisy, pneumothorax, pulmonary embolus. HEART Score: History: Moderately Suspicious (1), ECG: Non specific repolarization disturbance / LBTB / PM (1), Age: < or = 45 years (0), Risk Factors: > or = 3 Risk factors for atherosclerotic disease (2), Troponin: < or = 1 x Normal Limit (0), Total Score = 4. Data reviewed: vital signs, nurses notes, lab test result(s), EKG, radiologic studies, plain films, and as a result, I will admit patient. Consideration of Admission/Observation Patient was admitted/placed on observation. Escalation of care including admission/observation considered. Counseling: I had a detailed discussion with the patient and/or guardian regarding the historical points, exam findings, and any diagnostic results supporting the discharge/admit diagnosis, lab results, radiology results, the need for further work-up and treatment in the hospital. 05/11 15:16 Order name: Basic Metabolic Panel; Complete Time: 16:50 rn 05/11 15:16 Order name: CBC with Diff; Complete Time: 15:52 rn 05/11 15:16 Order name: D-Dimer; Complete Time: 15:52 rn 05/11 15:16 Order name: NT PRO-BNP; Complete Time: 16:50 rn 05/11 15:16 Order name: PT-INR; Complete Time: 15:52 rn 05/11 15:16 Order name: Troponin HS; Complete Time: 16:50 rn 05/11 15:16 Order name: XRAY Chest (1 view); Complete Time: 16:50 rn 05/11 15:16 Order name: EKG; Complete Time: 15:17 rn 05/11 15:16 Order name: Cardiac monitoring; Complete Time: 17:31 rn 05/11 15:16 Order name: EKG - Nurse/Tech; Complete Time: 15:38 rn 05/11 15:16 Order name: IV Saline Lock; Complete Time: 15:38 rn 05/11 15:16 Order name: Labs collected and sent; Complete Time: 15:38 rn 05/11 15:16 Order name: O2 Per Protocol; Complete Time: 17:31 rn 05/11 15:16 Order name: O2 Sat Monitoring; Complete Time: 17:31 rn EC:29 Rate is 77 beats/min. Rhythm is regular. QRS Nemo is Normal. ID interval is normal. QRS rn interval is normal. QT interval is normal. No Q waves. T waves are Normal. No ST changes noted. Clinical impression: Normal ECG. Interpreted by me. Reviewed by me. Administered Medications: 17:35 Drug: morphine IVP or IV 4 mg IVP once over 4 mins Route: IVP; Infused Over: 4 mins; me1 Site: right forearm; 18:49 Follow up: Pain 4/10 Adult; Response: No adverse reaction; Pain is decreased me1 Disposition Summary: 05/11/24 17:01 Hospitalization Ordered Notes: Hospitalization Status: Observation rn Provider: Thai David rn Location: Telemetry/MedSurg (observation) rn Condition: Stable rn Problem: new rn Symptoms: have improved rn Bed/Room Type: Standard rn Room Assignment: 404(05/11/24 19:18) vk Diagnosis - Chest pain, unspecified rn Forms: - Medication Reconciliation Form rn - SBAR form rn - Leadership Thank You Letter rn Signatures: Dispatcher [employer] Nicole Peña Roman, MD MD rn Calderon, Audri RN RN aa5 Yaritza Jane RN RN me1 Sonja Pedraza Corrections: (The following items were deleted from the chart) 17:35 17:01 rn bd 18:07 17:35 219 bd bd 19:09 18:07 bd vk 19:18 19:09 402 vk vk
[2024-05-11] MEDS ORDERED: MORPHINE 4 MG/ML SYR ONE (17:28)
--- NOTE | 2024-05-11 17:30 | P.HP ---
Certification for Inpatient Patient admitted to: Observation With expected LOS: <2 Midnights Patient will require the following post-hospital care: None Practitioner: I am a practitioner with admitting privileges, knowledge of patient current condition, hospital course, and medical plan of care. Services: Services provided to patient in accordance with Admission requirements found in Title 42 Section 412.3 of the Code of Federal Regulations Patient History Date of Service: 05/11/24 Reason for admission: Chest pain History of Present Illness: 44-year-old female with history of CAD with PCI 11/2023, anxiety, depression, hypertension, hyperlipidemia, PTSD presents to the emergency department chief complaint of chest pain. She reports she has been having ongoing chest pain for last 3 days described as sharp radiating to her left arm with associated left arm heaviness. She was evaluated in the emergency department her initial high- sensitivity troponin today is 3.1, she had been in the ER last night and her troponin was 3 at that time as well. She followed up with her park warden today in the office who referred her back for further evaluation to rule out PE and further evaluate chest pain. Her D-dimer was negative, ED progress admit patient under observation for ACS rule out. Allergies No Known Allergies Allergy (Unverified 03/25/22 00:43) Home Medications: Sertraline HCl 150 mg PO DAILY 12/05/23 Suvorexant [Belsomra] 20 mg PO BEDTIME 12/05/23 hydrOXYzine pamoate [Hydroxyzine Pamoate] 1 tab PO BEDTIME PRN PRN 12/05/23 Aspirin [Adult Aspirin Regimen] 81 mg PO DAILY 30 Days #30 tab 12/06/23 Clopidogrel Bisulfate [Plavix*] 75 mg PO DAILY 30 Days #30 tab 12/06/23 Pantoprazole Sodium [Protonix] 40 mg PO DAILY 30 Days #30 tab 12/16/23 Isosorbide Mononitrate [Isosorbide Mononitrate ER] 60 mg PO DAILY 30 Days #30 tab 01/11/24 LORazepam [Ativan*] 1 mg PO DAILY tab 02/15/24 Rosuvastatin [Crestor*] 40 mg PO BEDTIME tab 02/15/24 Sertraline [Zoloft*] 150 mg PO DAILY 03/03/24 - Past Medical/Surgical History Diabetic: No -: Anxiety/depression -: Bipolar -: PTSD -: HLD -: LA -: Angina -: HTN -: Cholecystectomy -: tonsillectomy -: cardiac stent x1 Psychosocial/ Personal History: Unemployed, lives at home with her father and 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 - Family History Mother -: Heart disease Father -: Heart disease Brother Notes: bipolar. anxiety. depression - Social History Alcohol use: No CD- Drugs: No Caffeine use: Yes Place of Residence: Home Review of Systems 10-point ROS is otherwise unremarkable Cardiovascular: Chest Pain Physical Examination - Physical Exam General: Alert, In no apparent distress, Oriented x3 HEENT: Atraumatic, PERRLA, Mucous membr. moist/pink Neck: Supple, 2+ carotid pulse no bruit, No LAD Respiratory: Clear to auscultation bilaterally, Normal air movement Cardiovascular: Regular rate/rhythm, Normal S1 S2 Gastrointestinal: Normal bowel sounds, No tenderness Musculoskeletal: No tenderness Integumentary: No rashes Neurological: Normal gait, Normal speech, Normal strength at 5/5 x4 extr, Normal affect - Studies Laboratory Data (last 24 hrs) 05/11/24 05/11/24 05/11/24 15:36 15:36 15:36 WBC 8.60 Hgb 12.8 Hct 38.4 Plt Count 291 PT 11.0 INR 0.98 Sodium 138 Potassium 3.8 BUN 14 Creatinine 0.83 Glucose 133 H Assessment and Plan - Plan Assessment: Chest pain rule out ACShistory of CAD with PCI in November 2023 Anxiety/depression Hypertension Hyperlipidemia PTSD Plan: Chest pain rule out ACShistory of CAD with PCI in November 2023 Initial troponin negative, D-dimer negative Monitor on telemetry and trend troponins Cardiology consultation, echocardiogram ordered N.p.o. after midnight in case of intervention/cath Anxiety/depression Hypertension Hyperlipidemia PTSD Continue home medications when verified DVT PPX: Lovenox Code status: Full Discharge Plan: Home Plan to discharge in: 24 Hours - Advance Directives Does patient have a Living Will: No Does patient have a Durable POA for Healthcare: No - Code Status/Comfort Care Code Status Assessed: Yes (Full code) Critical Care: No Time Spent Managing Pts Care (In Minutes): 57
[2024-05-11] MEDS: ROSUVASTATIN 10 MG TAB PO SCH (21:03)
[2024-05-11] MEDS: ONDANSETRON 4 MG/2 ML VIAL IV PRN (21:03)
[2024-05-11] MEDS: MORPHINE 2 MG/ML SYR IV PRN (21:03)
[2024-05-11] MEDS: NA CHLORIDE 0.9% 1,000 ML IV SCH (21:03)
[2024-05-11] MEDS: QUETIAPINE 25 MG TAB ONE (21:34)
[2024-05-11] MEDS: QUETIAPINE 25 MG TAB PO SCH (21:39)
[2024-05-11 23:29] VITALS: BMI 42.0
[2024-05-12] MEDS: HYDROCODONE/APAP 5/325 MG TAB PO PRN (00:15)
[2024-05-12 06:25] LABS: Absolute Basophils 0.1 K/uL (0-0.5); Absolute Eosinophils 0.4 K/uL (0-0.5); Absolute Lymphocytes (CBC) 1.9 K/uL (0.7-4.9); Absolute Monocytes 0.4 K/uL (0.1-1.3); Absolute Neutrophil 3.5 K/uL (1.8-8.0); Basophils % 1.4 % (0-1.3); Eosinophils % 5.6 % (0-4.4); Hematocrit 35.4 % (36.0-45.0); Lymphocytes % 30.1 % (15.3-44.8); MCH 27.1 pg (27.0-35.0); MCHC 33.8 g/dL (32.0-36.0); MCV 80.2 fL (80-100); MPV 7.8 fL (7.6-11.3); Neutrophils % 56.9 % (41.7-73.7); Nucleated Red Blood Cells % 0.1 % (0-0); Platelets 286 thou/uL (152-406); RBC Red Blood Cell Count 4.41 M/uL (3.86-4.86); Red Cell Distribution Width 15.6 % (12.1-15.2)
[2024-05-12 06:40] LABS: Anion Gap 6.7 mEq/L (5.0-15.0); Potassium 3.7 mEq/L (3.5-5.1)
[2024-05-12] MEDS: ENOXAPARIN 40 MG/0.4 ML SQ SCH (09:05)
[2024-05-12] MEDS: ASPIRIN EC 81 MG TAB PO SCH (09:05)
[2024-05-12] MEDS: POTASSIUM CL SA 10 MEQ TAB PO ONE (09:05)
[2024-05-12] MEDS: CLOPIDOGREL 75 MG TABLET PO SCH (09:05)
[2024-05-12] MEDS: LORazepam 2 MG/ML VIAL IV ONE (11:02)
--- NOTE | 2024-05-12 11:14 | P.CNS ---
Date of Consult: 05/12/24 Chief Complaint: Chest pain History of Present Illness: Patient with PMH of CAD s/p PCI SLOAN in 11/2023, presented yesterday to cardiology clinic for ongoing chest pain for the last few days, pressure left sided, radiate to her arm and neck, no other symptoms. Allergies No Known Allergies Allergy (Unverified 03/25/22 00:43) Home medications list reviewed: Yes Home Medications: Suvorexant [Belsomra] 20 mg PO BEDTIME 12/05/23 hydrOXYzine pamoate [Hydroxyzine Pamoate] 1 tab PO BEDTIME PRN PRN 12/05/23 Aspirin [Adult Aspirin Regimen] 81 mg PO DAILY 30 Days #30 tab 12/06/23 Clopidogrel Bisulfate [Plavix*] 75 mg PO DAILY 30 Days #30 tab 12/06/23 Isosorbide Mononitrate [Isosorbide Mononitrate ER] 60 mg PO DAILY 30 Days #30 tab 01/11/24 LORazepam [Ativan*] 0.5 mg PO BIDP PRN 05/11/24 Metoprolol Succinate [Toprol Xl] 25 mg PO DAILY 05/11/24 Rosuvastatin [Crestor*] 20 mg PO BEDTIME 05/11/24 - Past Medical/Surgical History Diabetic: No -: Anxiety/depression -: Bipolar -: PTSD -: HLD -: [place] -: Angina -: HTN -: Cholecystectomy -: tonsillectomy -: cardiac stent x1 Psychosocial/ Personal History: Unemployed, lives at home with her father and 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 - Family History Mother Medical History: Heart disease Father Medical History: Heart disease Brother Notes: bipolar. anxiety. depression - Social History Smoking Status: Current every day smoker Alcohol use: No CD- Drugs: No Caffeine use: Yes Place of Residence: Home Review of Systems 10-point ROS is otherwise unremarkable Physical Examination Temp Pulse Resp BP Pulse Ox 97.2 F 63 20 120/66 95 05/12/24 04:00 05/12/24 04:00 05/12/24 09:06 05/12/24 04:00 05/12/24 09:06 General: Alert, In no apparent distress HEENT: Atraumatic, PERRLA, Mucous membr. moist/pink, EOMI, Sclerae nonicteric Neck: Supple, 2+ carotid pulse no bruit, No LAD, Without JVD or thyroid abnormality Respiratory: Clear to auscultation bilaterally, Normal air movement Cardiovascular: Regular rate/rhythm, Normal S1 S2 Gastrointestinal: Normal bowel sounds, No tenderness Musculoskeletal: No tenderness Integumentary: No rashes Neurological: Normal gait, Normal speech, Normal tone, Normal affect Lymphatics: No axilla or inguinal lymphadenopathy Laboratory Data (last 24 hrs) 05/11/24 05/11/24 05/11/24 15:36 15:36 15:36 WBC 8.60 Hgb 12.8 Hct 38.4 Plt Count 291 PT 11.0 INR 0.98 Sodium 138 Potassium 3.8 BUN 14 Creatinine 0.83 Glucose 133 H - Problems (1) CAD (coronary artery disease) Current Visit: No Status: Acute Plan: ACS ruled out, troponin are negative x 3, EKG no significant changes. No further inpatient cardiac work up needed. Increase Imdur to 90 mg po daily continue Toprol XL 25 mg daily (2) HLD (hyperlipidemia) Current Visit: No Status: Acute Plan: continue lipitor 40 mg daily outpatient lipid panel (3) HTN (hypertension) Current Visit: No Status: Acute Plan: adjust medications as above.
[2024-05-12 11:58] VITALS: BP 116/56; TEMP 97.6; O2SAT 95
--- NOTE | 2024-05-12 12:19 | EKG ---
Test Date: 2024-05-11 Test Time: 15:26:48 Pit Worker Power Shovel: ELI MEASUREMENT RESULTS: Intervals: Rate: 77 [place]: 148 QRSD: 88 QT: 392 QTc: 443 [place]: P: 34 AZ: 148 QRS: -14 T: 32 INTERPRETIVE STATEMENTS: Normal sinus rhythm Normal ECG Compared to ECG 05/10/2024 20:20:54 Myocardial infarct finding no longer present Electronically Signed On 05-12-24 12:16:54 COMMUNICATIONS SENIOR ASSOCIATE by James Patel
--- NOTE | 2024-05-12 14:19 | P.DS ---
Admission Date: 05/11/24 Discharge Date: 05/12/24 Disposition: ROUTINE DISCHARGE Discharge Condition: GOOD Reason for Admission: Chest pain Consultations: Cardiology- Dr. Patel Brief History of Present Illness: 44-year-old female with history of CAD with PCI 11/2023, anxiety, depression, hypertension, hyperlipidemia, PTSD presents to the emergency department chief complaint of chest pain. She reports she has been having ongoing chest pain for last 3 days described as sharp radiating to her left arm with associated left arm heaviness. She was evaluated in the emergency department her initial high-sensitivity troponin today is 3.1, she had been in the ER last night and her troponin was 3 at that time as well. She followed up with her flight manager today in the office who referred her back for further evaluation to rule out PE and further evaluate chest pain. Her D-dimer was negative, ED progress admit patient under observation for ACS rule out. Hospital Course: Assessment: Chest pain rule out ACShistory of CAD with PCI in November 2023 Anxiety/depression Hypertension Hyperlipidemia PTSD Patient was admitted to the hospital for chest pain. Her D-dimer was negative, chest x-ray was negative for acute findings, troponin was negative and trended flat. She was seen by cardiology who recommends further evaluation as an outpa tient and increasing her isosorbide mononitrate ER from 60 mg to 90 mg daily. Continue home medications as previously prescribed aside from your isosorbide mononitrate ER-this medication the dose will be increased from 60 mg daily to 90 mg daily Please follow-up with cardiology in the office for further management Vital Signs/Physical Exam: Temp Pulse Resp BP Pulse Ox 97.6 F 69 20 116/56 L 95 05/12/24 08:00 05/12/24 08:00 05/12/24 09:36 05/12/24 08:00 05/12/24 09:36 General: Alert, In no apparent distress, Oriented x3 HEENT: Atraumatic, PERRLA Neck: Supple, JVD not distended Respiratory: Clear to auscultation bilaterally, Normal air movement Cardiovascular: Regular rate/rhythm, Normal S1 S2 Gastrointestinal: Normal bowel sounds, No tenderness Musculoskeletal: No tenderness Integumentary: No rashes Neurological: Normal speech, Normal tone, Normal affect Laboratory Data at Discharge: WBC 6.20 thou/uL (4.3-10.9) 05/12/24 05:49 Hgb 12.0 g/dL (12.0-15.0) 05/12/24 05:49 Hct 35.4 % (36.0-45.0) L 05/12/24 05:49 Plt Count 286 thou/uL (152-406) 05/12/24 05:49 PT 11.0 SECONDS (9.4-12.5) 05/11/24 15:36 INR 0.98 05/11/24 15:36 Sodium 141 mEq/L (136-145) 05/12/24 05:49 Potassium 3.7 mEq/L (3.5-5.1) 05/12/24 05:49 BUN 8 mg/dL (7-18) 05/12/24 05:49 Creatinine 0.60 mg/dL (0.55-1.02) 05/12/24 05:49 Glucose 101 mg/dL (74-106) 05/12/24 05:49 Home Medications: Suvorexant [Belsomra] 20 mg PO BEDTIME 12/05/23 hydrOXYzine pamoate [Hydroxyzine Pamoate] 1 tab PO BEDTIME PRN PRN 12/05/23 Aspirin [Adult Aspirin Regimen] 81 mg PO DAILY 30 Days #30 tab 12/06/23 Clopidogrel Bisulfate [Plavix*] 75 mg PO DAILY 30 Days #30 tab 12/06/23 LORazepam [Ativan*] 0.5 mg PO BIDP PRN 05/11/24 Metoprolol Succinate [Toprol Xl*] 25 mg PO DAILY 05/11/24 Rosuvastatin [Crestor*] 20 mg PO BEDTIME 05/11/24 Isosorbide Mononitrate [Isosorbide Mononitrate ER] 90 mg PO DAILY 30 Days #90 tab 05/12/24 New Medications: Isosorbide Mononitrate [Isosorbide Mononitrate ER] 90 mg PO DAILY 30 Days #90 tab Physician Discharge Instructions: Patient was admitted to the hospital for chest pain. Her D-dimer was negative, chest x-ray was negative for acute findings, troponin was negative and trended flat. She was seen by cardiology who recommends further evaluation as an outpatient and increasing her isosorbide mononitrate ER from 60 mg to 90 mg daily. Continue home medications as previously prescribed aside from your isosorbide mononitrate ER-this medication the dose will be increased from 60 mg daily to 90 mg daily Please follow-up with cardiology in the office for further management Diet: AHA Activity: Ad selin Followup: James Patel MD [ACTIVE - CAN ADMIT] - 1-2 Weeks Jaxon Hernandez MD [ACTIVE - CAN ADMIT] - 2-3 Days Time spent managing pt's care (in minutes): 37
--- NOTE | 2024-05-13 08:47 | ECHO ---
HEIGHT: 5 ft 2 in WEIGHT: 230 lb 0 oz DATE OF STUDY: 05/12/[address]: Michelet Templeton NP 2-DIMENSIONAL: YES M.MODE: YES DOPPLER: YES COLOR FLOW: YES TDS: NO PORTABLE: YES DEFINITY: NO BUBBLE STUDY: NO DIAGNOSIS: CHEST PAIN CARDIAC HISTORY: CATHERIZATION:YES SURGERY: NO PROSTHETIC VALVE: NO PACEMAKER: NO MEASUREMENTS (cm) DIASTOLIC (NORMALS) SYSTOLIC (NORMALS) IVSd 1.2 (0.6-1.2) LA Diam 3.1 (1.9-4.0) LVEF 65% LVIDd 3.4 (3.5-5.7) LVIDs 2.2 (2.0-3.5) %FS 35% LVPWd 1.3 (0.6-1.2) Ao Diam 2.8 (2.0-3.7) 2 DIMENSIONAL ASSESSMENT: RIGHT ATRIUM: NORMAL LEFT ATRIUM: NORMAL RIGHT VENTRICLE: NORMAL LEFT VENTRICLE: NORMAL TRICUSPID VALVE: NORMAL MITRAL VALVE: NORMAL PULMONIC VALVE: NORMAL AORTIC VALVE: NORMAL PERICARDIAL EFFUSION: NONE AORTIC ROOT: NORMAL LEFT VENTRICULAR WALL MOTION: NORMAL. DOPPLER/COLOR FLOW: NORMAL. COMMENTS: 1. NORMAL LEFT VENTRICULAR SYSTOLIC FUNCTION. LEFT VENTRICULAR EJECTION FRACTION 65%. NORMAL WALL MOTION. 2. NORMAL DIASTOLIC FUNCTION. TECHNOLOGIST: EVENS RIOS
== END 2024-05-12 12:15 | disposition home or self-care (01) ==
LOC: ER 15:09 → ERHOLD 17:24 → 4TH 19:39
PROVIDERS: ADMIT Internal Medicine; ATTEND Hospitalist
DX: R07.9 Chest pain, unspecified (principal); I25.10 Atherosclerotic heart disease of native coronary artery without angina pectoris; F32.A Depression, unspecified; F41.9 Anxiety disorder, unspecified; I10 Essential (primary) hypertension; E78.5 Hyperlipidemia, unspecified; F43.10 Post-traumatic stress disorder, unspecified
CPT/HCPCS: 93005; 93306; 85025 ×2; 80048 ×2; 36415; 85610; 85379; 84484 ×3; 83880; 71045; J1650; J2270 ×3; J2405 ×2; J7030 ×2; 96374; 99285; G0378

== ENCOUNTER 2024-06-05 21:43 | Emergency (ER) | payer MEDICARE, SELFPAY ==
[2024-06-05 22:19] LABS: Absolute Basophils 0.1 K/uL (0-0.5); Absolute Eosinophils 0.3 K/uL (0-0.5); Absolute Lymphocytes (CBC) 3.1 K/uL (0.7-4.9); Absolute Monocytes 0.6 K/uL (0.1-1.3); Absolute Neutrophil 5.7 K/uL (1.8-8.0); Basophils % 1.1 % (0-1.3); Eosinophils % 2.7 % (0-4.4); Hematocrit 37.2 % (36.0-45.0); Hemoglobin 12.4 g/dL (12.0-15.0); Lymphocytes % 31.6 % (15.3-44.8); MCH 26.9 pg (27.0-35.0); MCHC 33.3 g/dL (32.0-36.0); MCV 80.7 fL (80-100); MPV 7.7 fL (7.6-11.3); Monocytes % 5.7 % (3.3-12.3); Neutrophils % 58.9 % (41.7-73.7); Platelets 303 thou/uL (152-406); RBC Red Blood Cell Count 4.61 M/uL (3.86-4.86)
[2024-06-05 22:23] LABS: PT Prothrombin Time 10.8 SECONDS (9.4-12.5); Protime INR 0.96
--- NOTE | 2024-06-05 22:25 | RAD REPORT ---
EXAM: Chest Single View HISTORY: CHEST PAIN COMPARISON: 05/11/2024 FINDINGS: LUNGS/PLEURA: The lungs are clear. No pleural effusions or pneumothorax. No pulmonary edema. MEDIASTINUM: The mediastinal silhouette is within normal limits. CARDIAC: The cardiac silhouette is within normal limits. UPPER ABDOMEN: No significant abnormality. BONES: No acute fracture. LINES/TUBES/OTHER: N/A IMPRESSION: No evidence of acute cardiopulmonary disease.
[2024-06-05 23:12] LABS: ALT/SGPT 18 U/L (13-56); Albumin 2.8 g/dL (3.4-5.0); Albumin/Globulin Ratio 0.8 (1.1-1.8); Alkaline Phosphatase 73 U/L (45-117); Anion Gap 7.8 mEq/L (5.0-15.0); BUN Blood Urea Nitrogen 12 mg/dL (7-18); Bicarbonate 24 mEq/L (21-32); Globulin 3.6 g/dL (2.3-3.5); Glomerular Filtration Rate 111 ml/min (=/>90); Glucose Level 115 mg/dL (74-106); Lipase 37 U/L (13-75); NT PRO-BNP 117 pg/mL (<125); Protein, Total 6.4 g/dL (6.4-8.2); Sodium Level 139 mEq/L (136-145)
[2024-06-05 23:16] LABS: AST/SGOT 11 U/L (15-37); Bilirubin Direct < 0.2 mg/dL (0-0.2); Bilirubin Total < 0.2 mg/dL (0.2-1.0); Magnesium 1.9 mg/dL (1.6-2.4); Potassium 3.8 mEq/L (3.5-5.1); Troponin High Sensitivity < 3.0 pg/mL (<58.9)
[2024-06-05] MEDS ORDERED: ACETAMINOPHEN 500 MG TAB ONE (23:26)
--- NOTE | 2024-06-05 23:48 | EDPHYS ---
Physician Documentation [facility] Name: Charity Hanks Age: 44 yrs Sex: Female : 1980 Arrival Date: 06/05/2024 Time: 21:43 Bed IW10 Private MD: ED Physician Marty Singh HPI: 06/05 21:49 This 44 yrs old Female presents to ER via Unassigned with complaints of chest sp4 pain . 06/06 23:14 44-year-old female presents with EMS for complaint of chest pain. Patient is well-known sp4 to me from prior visits for multiple other pain complaints including chest pain and abdominal pain. Historical: - Allergies: 06/05 21:53 No Known Allergies; br2 - PMHx: 21:53 Anxiety; depressive disorder; Myocardial infarction; Pancreatitis; PTSD; br2 - Immunization history:: Adult Immunizations not up to date. - Infectious Disease History:: Denies. - Social history:: Smoking status: Patient reports the use of cigarette tobacco products, 5 PER DAY. - Family history:: not pertinent. ROS: 06/06 23:14 Constitutional: Negative for fever, chills, and weight loss, positive for chest pain sp4 All other systems are negative, Exam: 23:14 Constitutional: This is a well developed, well nourished patient who is awake, alert, sp4 and in no acute distress. Head/Face: Normocephalic, atraumatic. Eyes: Pupils equal round and reactive to light, extra-ocular motions intact. Lids and lashes normal. Conjunctiva and sclera are not injected. Cornea within normal limits. Periorbital areas with no swelling, redness, or edema. ENT: Nares patent. No nasal discharge, no septal abnormalities noted. Tympanic membranes are normal and external auditory canals are clear. Oropharynx with no redness, swelling, or masses, exudates, or evidence of obstruction, uvula midline. Mucous membranes moist. Neck: Trachea midline, no thyromegaly or masses palpated, and no cervical lymphadenopathy. Supple, full range of motion without nuchal rigidity, or vertebral point tenderness. Chest/axilla: Normal chest wall appearance and motion. Nontender with no deformity. No lesions are appreciated. Cardiovascular: Regular rate and rhythm with a normal S1 and S2. No gallops, murmurs, or rubs. Normal PMI, no JVD. No pulse deficits. Respiratory: Lungs have equal breath sounds bilaterally, clear to auscultation and percussion. No rales, rhonchi or wheezes noted. No increased work of breathing, no retractions or nasal flaring. Abdomen/GI: Soft, with normal bowel sounds. No distension or tympany. No guarding or rebound. No evidence of tenderness throughout. Back: No spinal tenderness. No costovertebral tenderness. Skin: Warm, dry with normal turgor. Normal color with no rashes, no lesions, and no evidence of cellulitis. MS/ Extremity: Pulses equal, no cyanosis. Neurovascular intact. Full, normal range of motion. Neuro: Awake and alert, GCS 15, oriented to person, place, time, and situation. Cranial nerves II-XII grossly intact. Motor strength 5/5 in all extremities. Sensory grossly intact. Psych: Awake, alert, with orientation to person, place and time. Behavior, mood, and affect are within normal limits 23:14 ECG was reviewed by the Attending Physician. NSR, normal EKG Vital Signs: 06/05 21:49 BP 101 / 86; Pulse 78; Resp 16 S; Temp 98.1(TE); Pulse Ox 99% on R/A; Weight 105.69 kg; br2 Height 5 ft. 2 in. ; Pain 9/10; 22:53 BP 113 / 79; Pulse 77; Resp 26 S; Pulse Ox 96% on R/A; br2 21:49 Body Mass Index 42.62 (105.69 kg, 157.48 cm) br2 21:49 Pain Scale: Adult br2 MDM: 22:11 Medical Screening Exam initiated sp4 06/06 23:17 Differential diagnosis: acute pericarditis, anxiety, chest wall pain, esophagitis, sp4 gastritis. Data reviewed: vital signs, nurses notes, radiologic studies. 23:18 HEART Score: History: Slightly Suspicious (0), ECG: Normal (0), Age: < or = 45 years sp4 (0), Risk Factors: 1 or 2 risk factors (1), Troponin: < or = 1 x Normal Limit (0), Total Score = 1. ED course: EXAM: Chest Single View HISTORY: CHEST PAIN COMPARISON: 05/11/2024 FINDINGS: LUNGS/PLEURA: The lungs are clear. No pleural effusions or pneumothorax. No pulmonary edema. MEDIASTINUM: The mediastinal silhouette is within normal limits. CARDIAC: The cardiac silhouette is within normal limits. UPPER ABDOMEN: No significant abnormality. BONES: No acute fracture. LINES/TUBES/OTHER: N/A IMPRESSION: No evidence of acute cardiopulmonary disease.. 23:22 ED course: Patient was provided informed discharge. No sign of ACS.. 06/05 21:50 Order name: Basic Metabolic Panel; Complete Time: 23:47 06/05 21:50 Order name: CBC with Diff; Complete Time: 23:47 06/05 21:50 Order name: LFT's; Complete Time: 23:47 06/05 21:50 Order name: Magnesium; Complete Time: 23:47 06/05 21:50 Order name: NT PRO-BNP; Complete Time: 23:47 06/05 21:50 Order name: PT-INR; Complete Time: 23:47 06/05 21:50 Order name: Troponin HS; Complete Time: 23:47 06/05 21:51 Order name: Lipase; Complete Time: 23:47 06/05 21:50 Order name: XRAY Chest (1 view); Complete Time: 23:47 06/05 21:50 Order name: EKG; Complete Time: 21:51 06/05 21:50 Order name: Cardiac monitoring; Complete Time: 23:29 06/05 21:50 Order name: EKG - Nurse/Tech; Complete Time: 22:00 06/05 21:50 Order name: IV Saline Lock; Complete Time: 23:29 06/05 21:50 Order name: Labs collected and sent; Complete Time: 23:29 [facility] 06/05 21:50 Order name: O2 Per Protocol; Complete Time: 23:29 06/05 21:50 Order name: O2 Sat Monitoring; Complete Time: 23:30 06/05 22:24 Order name: Misc. Order: RECOLLECT GREEN TOP; Complete Time: 23:29 vc1 EC:14 Rate is 72 beats/min. Rhythm is regular, Normal Sinus Rhythm. QRS [place] is Normal. [place] sp4 interval is normal. QRS interval is normal. QT interval is normal. No Q waves. T waves are Normal. No ST changes noted. Clinical impression: Normal ECG. Interpreted by me. Reviewed by me. Administered Medications: 06/05 23:29 Drug: Acetaminophen PO 1000 mg PO once Route: PO; br2 23:42 Follow up: Response: No adverse reaction br2 Disposition: 06/06 23:23 Chart complete. sp4 Disposition Summary: 06/05/24 23:48 Discharge Ordered Notes: Location: Home sp4 Problem: new sp4 Symptoms: have improved sp4 Condition: Stable sp4 Diagnosis - Chest pain, unspecified sp4 - Non cardiac chest pain. sp4 Followup: sp4 - With: Neil Arthur MD - When: 7 - 10 days - Reason: Recheck today's complaints Discharge Instructions: - Discharge Summary Sheet sp4 - Nonspecific Chest Pain, Adult, [id number] sp4 Forms: - Patient Portal Instructions sp4 Signatures: Dispatcher [employer] EDHeide Dorsey RN RN vc1 Marty Singh MD MD sp4 Aarti Dodge RN RN br2
--- NOTE | 2024-06-05 23:48 | ER ---
Nurse's Notes [facility] Name: Charity Hanks Age: 44 yrs Sex: Female : 1980 Arrival Date: 06/05/2024 Time: 21:43 Bed IW10 Private MD: Diagnosis: Chest pain, unspecified;Non cardiac chest pain. Presentation: 06/05 21:49 Chief complaint: Patient states: PT C/O CHEST PAIN THAT BEGAN AT 1400, MIDSTERNAL. PT br2 TOOK ASA 81MG PO PRIOR TO EMS ARRIVAL. PT GIVEN REGLAN 5MG PER EMS, FINGER STICK 131. Coronavirus screen: Client denies travel out of the [place] in the last 14 days. Ebola Screen: Patient denies exposure to infectious person. Initial Sepsis Screen: Does the patient meet any 2 criteria? No. Patient's initial sepsis screen is negative. Does the patient have a suspected source of infection? No. Patient's initial sepsis screen is negative. Risk Assessment: Do you want to hurt yourself or someone else? Patient reports no desire to harm self or others. Onset of symptoms was June 05, 2024 at 14:00. 21:49 Method Of Arrival: EMS: [facility] br2 21:49 Acuity: CARLOS 3 br2 Triage Assessment: 21:53 General: Appears uncomfortable, Behavior is cooperative, anxious. Pain: Complains of br2 pain in mid-sternal area Pain does not radiate. Pain currently is 9 out of 10 on a pain scale. Quality of pain is described as sharp. EENT: No signs and/or symptoms were reported regarding the EENT system. Neuro: Lang Agitation-Sedation Scale (RASS): 0 - Alert and Calm Level of Consciousness is awake, alert, obeys commands, Oriented to person, place, time, situation. Cardiovascular: Reports chest pain, Capillary refill < 3 seconds Rhythm is regular. Respiratory: Airway is patent Respiratory effort is even, unlabored, Respiratory pattern is regular, symmetrical. GI: No signs and/or symptoms were reported involving the gastrointestinal system. : No signs and/or symptoms were reported regarding the genitourinary system. Derm: No signs and/or symptoms reported regarding the dermatologic system. Musculoskeletal: Capillary refill < 3 seconds. Historical: - Allergies: 21:53 No Known Allergies; br2 - PMHx: 21:53 Anxiety; depressive disorder; Myocardial infarction; Pancreatitis; PTSD; br2 - Immunization history:: Adult Immunizations not up to date. - Infectious Disease History:: Denies. - Social history:: Smoking status: Patient reports the use of cigarette tobacco products, 5 PER DAY. - Family history:: not pertinent. Screenin:56 [facility] ED Fall Risk Assessment (Adult) History of falling in the last 3 months, br2 including since admission No falls in past 3 months (0 pts) Confusion or Disorientation No (0 pts) Intoxicated or Sedated No (0 pts) Impaired Gait No (0 pts) Mobility Assist Device Used No (0 pt) Altered Elimination No (0 pt) Score/Fall Risk Level 0 - 2 = Low Risk Oriented to surroundings. Abuse screen: Denies threats or abuse. Denies injuries from another. Nutritional screening: No deficits noted. Tuberculosis screening: No symptoms or risk factors identified. Assessment: 21:49 Reassessment: SEE TRIAGE ASSESSMENT. br2 22:53 Reassessment: No changes from previously documented assessment. Patient and/or family br2 updated on plan of care and expected duration. Pain level reassessed. Patient is alert, oriented x 3, equal unlabored respirations, skin warm/dry/pink. Vital Signs: 21:49 BP 101 / 86; Pulse 78; Resp 16 S; Temp 98.1(TE); Pulse Ox 99% on R/A; Weight 105.69 kg; br2 Height 5 ft. 2 in. ; Pain 9/10; 22:53 BP 113 / 79; Pulse 77; Resp 26 S; Pulse Ox 96% on R/A; br2 21:49 Body Mass Index 42.62 (105.69 kg, 157.48 cm) br2 21:49 Pain Scale: Adult br2 ED Course: 21:48 Patient arrived in ED. jj6 21:48 Aarti Dodge RN is Primary Nurse. br2 21:49 Marty Singh MD is Attending Physician. sp4 21:53 Triage completed. br2 21:54 EKG done, by ED staff, reviewed by Marty Singh MD. oe 21:56 Patient has correct armband on for positive identification. Bed in low position. Call br2 light in reach. Side rails up X 1. Provided Education on: PLAN OF CARE. 22:21 XRAY Chest (1 view) In Process Unspecified. EDMS 23:41 IV discontinued, intact, PT PULLED IV OUT AND LEFT PRIOR TO SIGNING PAPERWORK. br2 23:47 Neil Arthur MD is Referral Physician. sp4 06/06 00:33 No provider procedures requiring assistance completed. lg3 Administered Medications: 06/05 23:29 Drug: Acetaminophen PO 1000 mg PO once Route: PO; br2 23:42 Follow up: Response: No adverse reaction br2 Medication: 06/06 00:34 VIS not applicable for this client. lg3 Outcome: 06/05 23:48 Discharge ordered by . sp4 06/06 00:33 Discharged to home ambulatory, lg3 Condition: stable Instructed on discharge instructions, 00:34 Patient left the ED. lg3 Signatures: Dispatcher [employer] EDMS Charly Yousif Lacie, RN RN lg3 Sarah Majano6 Marty Singh MD MD sp4 Aarti Dodge RN RN br2
[2024-06-06 05:37] VITALS: TEMP 98.1
[2024-06-06 05:38] VITALS: BP 113/79; O2SAT 96
--- NOTE | 2024-06-07 14:14 | EKG ---
Test Date: 2024-06-05 Test Time: 21:50:06 Car Repairer: NARENDRA MEASUREMENT RESULTS: Intervals: Rate: 75 OK: 136 QRSD: 90 QT: 392 QTc: 437 [place]: P: 20 OK: 136 QRS: -7 T: 48 INTERPRETIVE STATEMENTS: Normal sinus rhythm Normal ECG Compared to ECG 05/11/2024 15:26:48 No significant changes Electronically Signed On 06-07-24 14:12:11 TECH ED TEACHER by Neil Arthur
== END 2024-06-06 00:34 | disposition home or self-care (01) ==
LOC: ER 21:43
DX: R07.89 Other chest pain (principal); I25.2 Old myocardial infarction; F17.210 Nicotine dependence, cigarettes, uncomplicated
CPT/HCPCS: 36415; 71045; 80048; 80076; 83690; 83735; 83880; 84484; 85025; 85610; 93005; 99284

== ENCOUNTER 2024-06-10 21:55 | Observation (INO) | payer OTHER ==
--- OUTSIDE RECORDS SUMMARY | 2024-06-10 22:07 | XMS REPORT | Continuity of Care Document ---
Author Name Unknown Address [address] [facility] [address] [place] [address] [facility] thconnect Address [address] [facility]. [address] [place] [address] Support Name Relationship Address Phone RACHEL CASH Father Unknown Unavailable PHYSICIAN, NO Primary Care Physician Unknown Unav ailable MD MORA POLLOCK Emergency Provider [address] [place] [address] JAN COX natural parent [address] [address] MD SHERIDAN MCMANUS Emergency Provider [facility], [place] [address] CHARITY ROCA Guarantor [address] [place] [address] MD RIDDHI MY[place] [address] MD AN IRIZARRY Emergency Provider [facility], [place] [address] MD CARLOS SOLANO A Primary Care Physician [address] [facility] 3 [place] [address] OTHER, ENTER NAME IN NOTES Primary Care Physician Unknown Unavailable MD Arelis Kern Emergency Provider [address] [place] [address] MD SHAN BUSCH Attending Provider [address] [place] [address] PIYUSH JUAREZ parent [address] [place] [address] MD TAVARES MG JR, JR. Emergency Provider [address] [place] [address] Leyda Petty Mother Unknown Unavailable Rachel Cox Father [address] [place] [address] one else per patient, No Emergency Contact Unknown Unavailable Rachel Cox Father [address] [place] [address] 1 Personal Relationship Unknown Unavai lable Unavailable Personal Relationship Unknown Unavai lable Rachel Cox [address] [place] [address] PATIENT, NO ONE ELSE PER Personal Relationship Unknown Unavailable Care Team Providers Care Proof Coins Inspector Name Role Phone OTHER, ENTER NAME IN NOTES Primary Care Physicia n Unavailable JOANNE MONTES Attending Clinician Unavailable OLIVIA GARCIA Attending Clinician Unavailable OLIVIA GARCIA Attending Clinician Unavailable Olivia Garcia MD Attending Clinician [phone] GISELLE OSORIO Attending Clinician Unavailable ANNALISE WRIGHT Attending Clinician Unavailable Annalise Wright PA-C Attending Clinician [phone] LAB90 Attending Clinician Unavailable Alesha Roy MD Attending Clinician + ARELIS KERN Attending Clinician Unavailab Saleem Weston Attending Clinician [phone] FARTUN GILLESPIE Attending Clinician Unavailable TAVARES MG JR Attending Clinician Leigh Pink NP Attending Clinician [phone] COSMO Attending Clinician Unavailable SHERIDAN MCMANUS Attending Clinician UnavailROBERTO Melgar Attending Clinician Unavailable Roberto Richards MD Attending Clinician [phone] SHAN BUSCH Attending Clinician Unavailable RIDDHI MYLES Attending Clinician UnavailAN Garcia Attending Clinician Unavailable NARAYAN NARVAEZ Attending Clinician Unavailable Narayan Narvaez DO Attending Clinician + Saleem EDWARD Attending Clinician Unavailable Saleem Perez Attending Clinician [phone] BRITTNI PADGETT S Attending Clinician Unavailable Brittni Elam S Attending Clinician [phone] JESÚS MONTERO Attending Clinician Unavailable Leeanne Wise NP Attending Clinician + Jesús Montero MD Attending Clinician + FELTON Attending Clinician Unavailable MELIDA LONGORIA Attending Clinician Unavailable Melida Longoria MD Attending Clinician +[phone] WIL MCQUEEN Attending Clinician Unavailable Wil Joseph Attending Clinician + DEE WANG Attending Clinician Unavaila ble Felipe MEDINAP, Dee Isaac Attending Clinician [phone] Doctor Unassigned, [place] Attending Clinician U CEM Lance Attending Clinician Unavailable Cem Choi MD Attending Clinician [phone] Shelley Rosas RN Attending Clinician + [phone] Bal Cuevas Attending Clinician +[phone] BAL HASSAN Attending Clinician Unavailable Tremaine Jon Attending Clinician [phone] TREMAINE BECERRA Attending Clinician Unavailable LEEANNE WISE Attending Clinician Unavailable MORA POLLOCK Attending Clinician Unavailable Best Rodríguez Attending Clinician [phone] BEST TAYLOR Attending Clinician Unavailable Marbella Rizo RN Attending Clinician Unavailab Abdias Vuong Attending Clinician + ABDIAS ROBERTSON Attending Clinician Unavailable Kamryn Sheppard RN Attending Clinician Unavail able Bushra Rios DO Attending Clinician + [phone] BUSHRA RIOS Attending Clinician Unavailab SINCERE morocho BA Attending Clinician Unavailable GUMARO ALVAREZ Attending Clinician Unavailable NEIL WILKINS Attending Clinician UnavailLISA Parker Attending Clinician Unavailable JW SOLORZANO Attending Clinician Unavailab SANIA Glover Attending Clinician Unavailable GINA MARTIN Attending Clinician Unavailable YIN RIOS Attending Clinician Unavailab ALBETRO Cason Attending Clinician Unavailable ANTHONY SCHNEIDER Attending Clinician Unavaildesmond MCKEON, DARCIE Attending Clinician Unavailable ARLETTE ROBERT Attending Clinician Unavailable GISELA RIOS Attending Clinician Unavail able HUGO COFFMAN Attending Clinician Unavailable ANNALISE WRIGHT Admitting Clinician Unavailable OLIVIA GARCIA Admitting Clinician Unavailable ROBERTO RICHARDS Admitting Clinician Unavailable SHAN BUSCH Admitting Clinician Unavailable RIDDHI MYLES Admitting Clinician UnaNARAYAN Suárez Admitting Clinician Unavailable JESÚS MONTERO Admitting Clinician Unavailable Jesús Montero MD Admitting Clinician FELTON Admitting Clinician Unavailable MELIDA LONGORIA Admitting Clinician Unavailable WIL MCQUEEN Admitting Clinician Unavailable DEE WANG Admitting Clinician Unavaila CEM Gomez Admitting Clinician Unavailable TREMAINE BECERRA Admitting Clinician Unavailable LEEANNE WISE Admitting Clinician Unavailable Saleem EDWARD Admitting Clinician Unavailable BEST TAYLOR Admitting Clinician Unavailable ABDIAS ROBERTSON Admitting Clinician Unavailable Payers Payer Name Policy Type Policy Number Effective Date Expirati on Date Source AETALVARADO MP [employer] 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 94 ON 9 [id number] 2023 00:00:00 RAMSES W/ KELLEE BUCKLEY OOO [id number] 2023 00:00:00 HIM [employer]BS BLUE ADVANTAGE O [id number] 2020 00:00:00 Problems Condition Name Condition Details Condition Category Status Onset Date Resolution Date Last Treatment Date Treating Clinician Comments Source Generalize d abdominal pain Generalize d abdominal pain Disease Active 2023-07 0 00:00: 00 [facility] Coronary artery disease Coronary artery disease Disease Active 6 00:00: 00 Kellee Buckley - Shobha pinedo Status post arterial stent Status post arterial stent Disease Active 12-12 00:00: 00 Kellee pinedo MICAH (generaliz ed anxiety disorder) MICAH (generaliz ed anxiety disorder) Disease Active 12-02 00:00: 00 Kellee pinedo Severe episode of recurrent major depressive disorder, 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, 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) Disease Active 12-02 00:00: 00 Kellee pinedo PTSD (post-trau matic stress disorder) PTSD (post-trau matic stress disorder) Disease Active 12-02 00:00: 00 Kellee pinedo Elevated brain natriureti c peptide (BNP) level Elevated brain natriureti c peptide (BNP) level Disease Active 2020-07 0-02 00:00: 00 [facility] Cigarette smoker Cigarette smoker Disease Active 2020-07 0-02 00:00: 00 [facility] Family history of early CAD Family history of early CAD Disease Active 2020-07 0-02 00:00: 00 [facility] Primary hypertensi on Primary hypertensi on Disease Active 2020-07 0-02 00:00: 00 [facility] Elevated brain natriureti c peptide (BNP) level Elevated brain natriureti c peptide (BNP) level Disease Active 2020-07 0-02 00:00: 00 [facility] Snores Snores Disease Active 2020-07 0-02 00:00: 00 [facility] Morbid obesity with body mass index of 40.0-49.9 Morbid obesity with body mass index of 40.0-49.9 Disease Active 2020-07 0-01 00:00: 00 [facility] Abdominal pain [facility] Acute coronary syndrome without high troponin [facility] Adrenal mass Problem [facility] Adrenal nodule Problem [facility] Encounter for counseling regarding advance directives Problem [facility] Allergic rhinitis Problem [facility] Angina pectoris Problem [facility] Anxiety and depression [facility] Chest pain [facility] Gastroente ritis Problem [facility] Malaise Problem [facility] Otitis externa of left ear Problem [facility] Cyst of ovary Problem [facility] Post traumatic stress disorder (PTSD) Problem [facility] Tobacco abuse Problem [facility] Urinary tract infection Problem [facility] No known active problems No known active problems Disease [facility] Allergies, Adverse Reactions, Alerts Allergy Name Allergy Type Status Severity Reaction(s) Onset Date Inactive Date Treating Clinician Comments Source NO KNOWN ALLERGIE S Drug Class Active [facility] Social History Social Habit Start Date Stop Date Quantity Comments Source History of tobacco use [facility] Gender identity [facility] Sexual orientation Saleem Buckley - External ASSERTION Not Kellee Buckley - External Alcoholic beverage intake 2024-05-18 00:00:00 2024-05-18 00:00:00 Current drinker of alcohol (finding) Kellee Leiva External History of Social function 2023-10-28 00:00:00 2023-10-28 00:00:00 Kellee Leiva External Alcohol Comment 2023-10-28 00:00:00 2023-10-28 00:00:00 rarely Kellee Buckley - External Cigarettes smoked current (pack per day) - Reported 2023-10-28 00:00:00 2023-10-28 00:00:00 Kellee Leiva External Cigarette pack-years 2023-10-28 00:00:00 2023-10-28 00:00:00 Kellee Leiva External Tobacco use and exposure 2023-10-28 00:00:00 2023-10-28 00:00:00 Smokeless tobacco non-user Kellee Buckley - External Sex 2023-07-17 22:17:29 2023-07-17 22:17:29 Female (finding) Kellee Buckley - External Tobacco Comment 2023-02-15 00:00:00 2023-02-15 00:00:00 In the process of quitting. Now smokes 5 cigarettes/ day from 2 packs per day [facility] Exposure to SARS-CoV-2 (event) 2021-12-30 00:00:00 2022-01-09 16:34:00 Unable to assess [facility] Education 2021-04-07 00:00:00 2021-04-07 00:00:00 13 [facility] Sex assigned at 1980 00:00:00 1980 00:00:00 Kellee Buckley - External Smoking Status Start Date Stop Date Source Smokes tobacco daily 2023-10-28 00:00:00 Kellee Buckley - Samson Unknown if ever smoked [facility] Medications Ordered Medication Name Filled Medication Name Start Date Stop Date Current Medication? Ordering Clinician Indication Dosage Frequency Signature (SIG) Comments Components Source morpHINE (4 mg/mL) injection 4 mg 2023-07 08:15: 00 06-07 08:11 :00 No 4mg 4 mg, Slow IV Push, ONCE, 1 dose, On 06/07/24 at 0215, STAT [facility] ondansetron (ZOFRAN (PF)) injection 4 mg 2023-07 05:15: 00 06-07 05:23 :00 No 4mg 4 mg, Slow IV Push, ONCE, 1 dose, On 06/06/24 at 2315, Administer over 2-5 Minutes, 2 mL [facility] morpHINE (4 mg/mL) injection 4 mg 2023-07 05:15: 00 06-07 05:21 :00 No 4mg 4 mg, Slow IV Push, ONCE, 1 dose, On 06/06/24 at 2315, STAT [facility] nitroglycer in (NITROSTAT) sublingual tablet 0.4 mg 2023-07 05:08: 35 Yes .4mg 0.4 mg, Sublingual , Q5MIN PRN, 3 doses, Starting on 06/06/24 at 2308, Until Discontinu ed, RSOELYN, Chest pain [facility] hydrOXYzine Pamoate 50 MG oral Capsule 2023-07 13:02: 35 Yes [id number] 50mg Q.5D Take 1 capsule (50 mg total) by mouth 2 times daily as needed for anxiety. Kellee pinedo Vitamin D, Ergocalcife rol, 1.25 MG (09684 UT) oral Capsule 2023-07 00:00: 00 Yes [id number] Q1W Take 1 capsule (50,000 units total) by mouth once a week. Kellee pinedo ondansetron (ZOFRAN-ODT ) disintegrat ing tablet 4 mg 2023-07 20:15: 00 05-19 19:27 :00 No 4mg 4 mg, Oral, ONCE, 1 dose, On Sat05/19/24 at 1415, Routine [facility] HYDROcodone -acetaminop hen (NORCO 5) tablet 1 tablet 2023-07 18:00: 00 05-19 19:27 :00 No 1{tbl} 1 tablet, Oral, ONCE, 1 dose, On Sat05/19/24 at 1200, [facility] disintegrat ing tablet 2023-07 00:00: 00 Yes [id number] 4mg Take 1 tablet by mouth every 8 (eight) hours as needed for Nausea and Vomiting (N/V). [facility] hydrOXYzine Pamoate 50 MG oral Capsule 2023-07 10:26: 29 Yes [id number] 50mg Q.5D Take 1 capsule (50 mg total) by mouth 2 times daily as needed for anxiety. Kellee pinedo ondansetron (ZOFRAN (PF)) injection 4 mg 2023-07 03:45: 00 05-18 03:42 :00 No 4mg 4 mg, Slow IV Push, ONCE, 1 dose, On Sat05/17/24 at 2145, ROSELYN [facility] morpHINE (4 mg/mL) injection 4 mg 2023-07 03:45: 00 05-18 03:42 :00 No 4mg 4 mg, Slow IV Push, ONCE, 1 dose, On Sat05/17/24 at 2145, STAT [facility] ondansetron (ZOFRAN (PF)) injection 4 mg 2023-07 01:00: 00 05-18 01:21 :00 No 4mg 4 mg, Slow IV Push, ONCE, 1 dose, On 05/17/24 at 1900, ROSELYN [facility] fentanyl PF (SUBLIMAZE (PF)) injection 50 mcg 2023-07 01:00: 00 05-18 01:21 :00 No 50ug 50 mcg, Slow IV Push, ONCE, 1 dose, On 05/17/24 at 1900, STAT [facility] Methocarbam ol 750 MG oral Tablet 2023-07 00:00: 00 Yes [id number] 750mg Q.25D Take 1 tablet (750 mg total) by mouth 4 times daily. Kellee pinedo Suvorexant (Belsomra) 20 MG oral Tablet 2023-07 00:00: 00 Yes [id number] 1{tbl} QD Take 1 tablet by mouth nightly. Kellee pinedo Acetaminoph en-Codeine 300-30 MG oral Tablet 2023-07 00:00: 00 Yes [id number] Kellee pinedo Lorazepam (ATIVAN) 0.5 MG oral Tablet tablet 2023-07 00:00: 00 Yes [id number] .5mg Q.5D Take 1 tablet (0.5 mg total) by mouth 2 times daily as needed for anxiety. Kellee pinedo Sertraline HCl 50 MG oral Tablet 2023-07 00:00: 00 Yes [id number] 50mg QD Take 1 tablet (50 mg total) by mouth daily Take in addition to 100 mg tablet for a total dose of 150 mg daily. Kellee pinedo Sertraline HCl 100 MG oral Tablet 2023-07 00:00: 00 Yes [id number] 100mg Take 1 tablet (100 mg total) by mouth every morning Take in addition to 50 mg tablet for a total dose of 150 mg daily. Kellee pinedo Isosorbide Mononitrate CR 30 MG oral TABLET SR 24 HR 2023-07 00:00: 00 Yes [id number] TAKE THREE TABLETS BY MOUTH ONCE DAILY (90MG DAILY) Kellee pinedo ondansetron (ZOFRAN (PF)) injection 4 mg 2023-07 01:30: 00 05-08 00:31 :00 No 4mg 4 mg, Slow IV Push, ONCE, 1 dose, On [facility] 05/07/24 at 2030, [facility] mor[facility] (4 mg/mL) injection 4 mg 2023-07 01:30: 00 05-08 01:20 :00 No 4mg 4 mg, Slow IV Push, ONCE, 1 dose, On [facility] 05/07/24 at 2030, STAT [facility] ketorolac (TORADOL) injection 15 mg 2023-07 01:30: 00 05-08 00:30 :00 No 15mg 15 mg, Slow IV Push, ONCE, 1 dose, On [facility] 05/07/24 at 2030, [facility] phenazopy[facility]ine 200 mg tablet 2023-07 00:00: 00 Yes [id number] 200mg Take 1 tablet by mouth in the morning and 1 tablet at noon and 1 tablet in the evening. [facility] Rosuvastati n Calcium 20 MG oral Tablet 2023-07 00:00: 00 Yes 20mg QD Take 1 tablet (20 mg total) by mouth daily. Kellee pinedo Metoprolol Succinate 25 MG oral TABLET SR 24 HR 2023-07 00:00: 00 Yes [id number] 25mg QD Take 1 tablet (25 mg total) by mouth daily. Kellee pinedo Dicyclomine HCl 20 MG oral Tablet 2023-07 00:00: 00 Yes TAKE 1 TABLET BY MOUTH FOUR TIMES A DAY NEEDED FOR PAIN Kellee pinedo Ondansetron (ZOFRAN) 4 MG oral TABLET DISPERSIBLE 2023-07 00:00: 00 Yes 4mg Q.[id number] 3D Take 1 tablet (4 mg total) by mouth 3 times daily. Kellee Marcio pinedo Belsomra 20 MG oral Tablet 2023-07 0-09 00:00: 00 05-18 00:00 :00 No [id number] 1{tbl} QD take 1 tablet by mouth every day at night Kellee Marcio pinedo Nitrofurant oin (Macrobid *) 100 Mg CAP Nitrofurant oin (Macrobid *) 100 Mg CAP 2023-07 0 18:32: 00 Yes 100 [facility] Ondansetron Hcl (Zofran *) 4 Mg Tablet Disint Ondansetron Hcl (Zofran *) 4 Mg Tablet Disint 2023-07 18:32: 00 Yes 1 [facility] cefTRIAXone (ROCEPHIN) 1,000 mg in NaCl 0.9% (NS) 100 mL MINI-BAG 2023-07 01:15: 00 04-09 01:24 :00 No 1000mg 1,000 mg, IV Piggyback, ONCE, 1 dose, On Sat04/08/24 at 2015, Administer over 30 Minutes, 100 mL, Reason for Anti-Infec tive: Documented Infection, Documented Infection Site: Urine, Duration of Therapy: Once (ED) [facility] fentanyl PF (SUBLIMAZE (PF)) injection 25 mcg 2023-07 00:15: 00 04-09 00:18 :00 No 25ug 25 mcg, Slow IV Push, ONCE, 1 dose, On Sat04/08/24 at 1915, STAT [facility] NaCl 0.9% (NS) bolus infusion 1,000 mL 2023-07 23:45: 00 04-09 01:24 :00 No 1000mL at 999 mL/hr, 1,000 mL, IV Infusion, ONCE, 1 dose, On Sat04/08/24 at 1845, ROSELYN [facility] ondansetron (ZOFRAN (PF)) injection 4 mg 2023-07 23:00: 00 04-08 22:57 :00 No 4mg 4 mg, Slow IV Push, ONCE, 1 dose, On Sat04/08/24 at 1800, ROSELYN [facility] ketorolac (TORADOL) injection 30 mg 2023-07 23:00: 00 04-08 22:57 :00 No 30mg 30 mg, Slow IV Push, ONCE, 1 dose, On Sat04/08/24 at 1800, ROSELYN [facility] sodium chloride (NS) injection 5 mL 2023-07 22:33: 00 Yes 5mL 5 mL, Intravenou s, PRN, Starting on Sat04/08/24 at 1733, Until Discontinu ed, Routine, IV line flushing [facility] ciprofloxac in HCl 500 mg tablet 2023-07 00:00: 00 Yes [id number] 500mg Take 1 tablet by mouth in the morning and 1 tablet in the evening. [facility] Promethazin e HCl (PHENERGAN) 25 MG oral Tablet 03-14 00:00: 00 Yes 25mg Q.[id number] 3D Take 1 tablet (25 mg total) by mouth every 8 hours as needed for nausea. Kellee pinedo Clopidogrel Bisulfate (PLAVIX) 75 MG oral Tablet 02-09 00:00: 00 Yes [id number] 75mg QD take 1 tablet by mouth every day Kellee pinedo Aspirin Low Dose 81 MG oral Tablet Delayed Response 02-09 00:00: 00 Yes [id number] 81mg QD take 1 tablet by mouth every day Kellee pinedo Methylpredn isolone Acetate (Depo-Medro l) 40 mg/ml - Physician Administere d ([id number]) 02-05 13:21: 25 No [id number] 40mg 40 mg, Physician Administer ed, ONCE, 1 dose, On Esperanza 02/06/24 at 1145 Kellee pinedo hydrOXYzine Pamoate 50 MG oral Capsule 02-05 11:06: 49 Yes [id number] 50mg Q.5D Take 1 capsule (50 mg total) by mouth 2 times daily as needed for anxiety. Kellee pinedo Isosorbide Mononitrate CR 60 MG oral TABLET SR 24 HR 31 00:00: 00 Yes Kellee pinedo Lorazepam (ATIVAN) 0.5 MG oral Tablet tablet 01-09 00:00: 00 Yes [id number] .5mg Q.5D take 1 tablet by mouth 2 times daily as needed for anxiety Kellee pinedo Aspirin (Aspirin Low Dose) 81 MG oral Tablet Delayed Response 01-05 00:00: 00 Yes [id number] 81mg QD Take 1 tablet (81 mg total) by mouth daily. Kellee pinedo Atorvastati n Calcium 40 MG oral Tablet 01-05 00:00: 00 Yes [id number] 40mg QD Take 1 tablet (40 mg total) by mouth daily. Kellee pinedo Suvorexant (Belsomra) 20 MG oral Tablet 01-05 00:00: 00 Yes [id number] 1{tbl} QD Take 1 tablet by mouth nightly. Kellee pinedo Clopidogrel Bisulfate (PLAVIX) 75 MG oral Tablet 01-05 00:00: 00 Yes [id number] 75mg QD Take 1 tablet (75 mg total) by mouth daily. Kellee pinedo Protonix 40 MG oral Tablet Delayed Response 12-15 00:00: 00 05-18 00:00 :00 No 40mg 1 tablet (40 mg total). Kellee pinedo Sucralfate 1 g oral Tablet 12-15 00:00: 00 05-18 00:00 :00 No TAKE 1 TABLET (1 GM) BY MOUTH 3 TIMES A DAY WITH MEALS Kellee pinedo hydrOXYzine Pamoate 50 MG oral Capsule 12-12 09:19: 23 Yes [id number] 50mg Q.5D Take 1 capsule (50 mg total) by mouth 2 times daily as needed for anxiety. Kellee pinedo Lorazepam (ATIVAN) 0.5 MG oral Tablet tablet 12-12 00:00: 00 Yes [id number] .5mg Q.5D Take 1 tablet (0.5 mg total) by mouth 2 times daily as needed for anxiety. Kellee pinedo Aspirin Low Dose 81 MG oral Tablet Delayed Response 12-05 00:00: 00 Yes [id number] 81mg Take 1 tablet (81 mg total) by mouth daily. Kellee pinedo Atorvastati n Calcium 40 MG oral Tablet 12-05 00:00: 00 Yes [id number] 40mg Take 1 tablet (40 mg total) by mouth daily. Kellee pinedo Clopidogrel Bisulfate (PLAVIX) 75 MG oral Tablet 12-05 00:00: 00 Yes [id number] 75mg Take 1 tablet (75 mg total) by mouth daily. Kellee pinedo Mometasone Furo-Formot camelia Fum (Dulera) 200-5 MCG/ACT inhalation Aerosol 12-05 00:00: 00 05-18 00:00 :00 No TWICE DAILY Kellee pinedo Vitamin D, Ergocalcife rol, 1.25 MG (08211 UT) oral Capsule 12-04 00:00: 00 Yes [id number] 50818T Q1W Take 1 capsule (50,000 units total) by mouth once a week. Kellee pinedo Ferrous Sulfate 325 (65 Fe) MG oral Tablet 12-04 00:00: 00 Yes [id number] 325mg QD Take 1 tablet (325 mg total) by mouth daily (with breakfast) . Kellee pinedo Mirtazapine 45 MG oral Tablet 12-02 10:49: 07 12-02 00:00 :00 No [id number] 45mg Take 1 tablet (45 mg total) by mouth nightly. Kellee pinedo hydrOXYzine Pamoate 50 MG oral Capsule 12-02 10:49: 04 Yes [id number] 50mg Q.5D Take 1 capsule (50 mg total) by mouth 2 times daily as needed for anxiety. Kellee pinedo Ascorbic Acid 500 MG oral Tablet 12-02 10:48: 55 12-02 00:00 :00 No 50mg Take 50 mg by mouth. Kellee pinedo Suvorexant (Belsomra) 20 MG oral Tablet 12-02 00:00: 00 Yes [id number] 1{tbl} Take 1 tablet by mouth nightly. Kellee pinedo Lorazepam 1 MG oral Tablet 12-02 00:00: 00 12-12 00:00 :00 No [id number] 1mg Q.5D Take 1 tablet (1 mg total) by mouth 2 times daily as needed for anxiety. Kellee pinedo Doxepin HCl 3 MG oral Tablet 11-27 00:00: 00 05-18 00:00 :00 No [id number] 1{tbl} QD TAKE 1 TABLET BY MOUTH EVERY DAY AT NIGHT Kellee pinedo Aripiprazol e 5 MG oral Tablet 11-27 00:00: 00 05-18 00:00 :00 No [id number] 5mg QD TAKE 1 TABLET (5 MG TOTAL) BY MOUTH DAILY. Kellee pinedo Mirtazapine 45 MG oral Tablet 10-28 13:20: 59 Yes [id number] 45mg Take 1 tablet (45 mg total) by mouth nightly. Kellee pinedo Ascorbic Acid 500 MG oral Tablet 10-28 13:20: 47 Yes 50mg Take 50 mg by mouth. Kellee pinedo hydrOXYzine Pamoate 50 MG oral Capsule 10-28 13:20: 47 10-28 00:00 :00 No [id number] 50mg Q.5D Take 1 capsule (50 mg total) by mouth every 4 to 6 hours as needed. Kellee pinedo Sertraline HCl 150 MG oral Capsule 10-28 13:20: 03 10-28 00:00 :00 No 150mg Take 150 mg by mouth daily. Kellee pinedo Doxepin HCl 3 MG oral Tablet 10-28 00:00: 00 Yes [id number] 1{tbl} Take 1 tablet by mouth nightly. Kellee pinedo Aripiprazol e 5 MG oral Tablet 10-28 00:00: 00 Yes [id number] 5mg Take 1 tablet (5 mg total) by mouth daily. Kellee Ariasnicolbeck Cali pinedo Suvorexant 10 MG oral Tablet 10-28 00:00: 00 12-02 00:00 :00 No [id number] 1{tbl} Take 1 tablet by mouth nightly. Kellee Ariasazra pinedo Sertraline HCl 50 MG oral Tablet 10-26 00:00: 00 Yes [id number] Kellee Ariasazra Yeager khris HYDROcodone -acetaminop hen (NORCO) 10-325 mg tablet 1 tablet 10-10 06:15: 00 10-10 05:25 :00 No 1{tbl} 1 tablet, Oral, ONCE NOW, 1 dose, On Sat10/11/23 at 0115, ROSELYN [facility] iopamidol (ISOVUE 370-500 mL) injection 100 mL 10-10 05:00: 00 10-10 05:00 :00 No [id number] 100mL 100 mL, Intravenou s, ONCE, 1 dose, On Sat10/11/23 at 0000, Routine [facility] ketorolac (TORADOL) injection 30 mg 10-10 04:30: 00 10-10 03:29 :00 No 30mg 30 mg, Slow IV Push, ONCE, 1 dose, On Sat10/10/23 at 2330, Routine [facility] NaCl 0.9% (NS) IV infusion 1,000 mL 10-10 04:15: 00 10-10 05:18 :00 No 1000mL at 999 mL/hr, Intravenou s, ONCE, 1 dose, On Sat10/10/23 at 2315, Routine [facility] ondansetron (ZOFRAN (PF)) injection 4 mg 10-10 04:00: 00 10-10 03:54 :00 No 4mg 4 mg, Slow IV Push, ONCE, 1 dose, On Sat10/10/23 at 2300, ROSELYN [facility] morpHINE (4 mg/mL) injection 4 mg 10-10 04:00: 00 10-10 03:54 :00 No 4mg 4 mg, Slow IV Push, ONCE, 1 dose, On [place] 10/10/23 at 2300, STAT [facility] traMADoL (ULTRAM) 50 mg tablet 10-10 00:00: 00 Yes [id number] 50mg Take 1 tablet by mouth every 6 (six) hours as needed for Pain (scale 7-10). Indication s: acute pain [facility] ondansetron (ZOFRAN) 4 mg tablet 10-10 00:00: 00 Yes [id number] 4mg Take 1 tablet by mouth every 8 (eight) hours as needed for Nausea and Vomiting (N/V). [facility] ketorolac 10 mg tablet 10-10 00:00: 00 Yes [id number] 10mg Take 1 tablet by mouth every 6 (six) hours as needed for Pain (scale 7-10). [facility] phenazopyri dine 200 mg tablet 10-10 00:00: 00 Yes [id number] 200mg Take 1 tablet by mouth in the morning and 1 tablet at noon and 1 tablet in the evening. [facility] Sertraline HCl 100 MG oral Tablet 10-09 00:00: 00 Yes [id number] 100mg Take 1 tablet (100 mg total) by mouth every morning. Kellee Buckley - Shobha pinedo acetaminoph en (TYLENOL) tablet 975 mg 2022-07 04:15: 00 07-02 03:11 :00 No 975mg 975 mg, Oral, ONCE, 1 dose, On Sat07/01/23 at 2215, [facility] dicyclomine (BENTYL) tablet 20 mg 2022-07 03:15: 00 07-02 03:11 :00 No 20mg 20 mg, Oral, ONCE, 1 dose, On Sat07/01/23 at 2115, [facility] ketorolac (TORADOL) injection 30 mg 2022-07 03:15: 00 07-02 02:32 :00 No 30mg 30 mg, Slow IV Push, ONCE, 1 dose, On Sat07/01/23 at 2115, Routine [facility] ondansetron (ZOFRAN (PF)) injection 4 mg 2022-07 03:00: 00 07-02 02:03 :00 No 4mg 4 mg, Slow IV Push, ONCE, 1 dose, On Sat07/01/23 at 2100, RO[facility]N [facility] NaCl 0.9% (NS) bolus infusion 1,000 mL 2022-07 03:00: 00 07-02 04:10 :00 No 1000mL at 999 mL/hr, 1,000 mL, IV Infusion, ONCE, 1 dose, On Sat07/01/23 at 2100, STAT [facility] dicyclomine 20 mg tablet 2022-07 00:00: 00 Yes [id number] 20mg Take 1 tablet by mouth 4 (four) times daily. [facility] ondansetron 4 mg disintegrat ing tablet 2022-07 00:00: 00 Yes [id number] 4mg Take 1 tablet by mouth every 4 (four) hours as needed for Nausea and Vomiting (N/V). [facility] Alprazolam (Alprazolam *) 1 Mg TAB Alprazolam (Alprazolam *) 1 Mg TAB 2022-07 12:08: 00 06-14 00:00 :00 No 1 [facility] Trazodone Hcl (Desyrel 100 Mg*) 100 Mg TAB Trazodone Hcl (Desyrel 100 Mg*) 100 Mg TAB 2022-07 12:07: 00 06-06 12:08 :00 No 1 [facility] Aspirin (Aspirin Ec) 81 Mg Tablet Aspirin (Aspirin Ec) 81 Mg Tablet 2022-07 11:55: 00 07-07 00:00 :00 No 81 [facility] Alprazolam (Xanax 2 Mg*) 2 Mg TAB Alprazolam (Xanax 2 Mg*) 2 Mg TAB 2022-07 11:09: 40 06-06 12:08 :00 No 2 [facility] Trazodone Hcl (Desyrel 300 Mg*) 300 Mg TAB Trazodone Hcl (Desyrel 300 Mg*) 300 Mg TAB 2022-07 11:09: 39 05-13 15:45 :00 No 300 [facility] Alprazolam 1 MG oral Tablet 2022-07 00:00: 00 12-12 00:00 :00 No [id number] 2mg Take 2 tablets (2 mg total) by mouth 2 times daily. Kellee pinedo Pantoprazol e * (Protonix Ec *) 20 Mg Tablet Pantoprazol e * (Protonix Ec *) [address] 2022-07 15:44: 00 06-05 00:28 :00 No 20 [facility] Sucralfate (Carafate *) 1 Gm TAB Sucralfate (Carafate *) 1 Gm TAB 2022-07 15:44: 00 06-05 00:28 :00 No 1 [facility] Ciprofloxac in Hcl (Cipro *) 500 Mg TAB Ciprofloxac in Hcl (Cipro *) 500 Mg TAB 2022-07 15:44: 00 05-16 00:00 :00 No 500 [facility] Pantoprazol e Sodium 20 MG oral Tablet Delayed Response 2022-07 00:00: 00 12-02 00:00 :00 No Take by mouth. Kellee pinedo ketorolac (TORADOL) injection 15 mg 2022-07 01:00: 00 05-10 00:09 :00 No 15mg 15 mg, Slow IV Push, ONCE, 1 dose, On Sat05/09/23 at 2000, RO[facility] ity [facility] proCHLORper azine (COMPAZINE) injection 5 mg 2022-07 23:30: 00 05-09 22:48 :00 No 5mg 5 mg, Slow IV Push, ONCE, 1 dose, On Sat05/09/23 at 1830, ROSELYN [facility] diphenhydrA MINE (BENADRYL) injection 25 mg 2022-07 22:45: 00 05-09 22:48 :00 No 25mg 25 mg, Slow IV Push, ONCE, 1 dose, On Sat05/09/23 at 1745, STAT [facility] HYDROcodone -acetaminop hen (NORCO) 10-325 mg tablet 1 tablet 2022-07 02:00: 00 05-01 01:04 :00 No 1{tbl} 1 tablet, Oral, ONCE, 1 dose, On Sat04/30/23 at 2100, Routine [facility] iopamidol (ISOVUE 370-500 mL) injection 100 mL 2022-07 00:45: 00 05-01 00:45 :00 No [id number] 100mL 100 mL, Intravenou s, ONCE, 1 dose, On Sat04/30/23 at 1945, Routine [facility] NaCl 0.9% (NS) bolus infusion 1,000 mL 2022-07 00:00: 00 05-01 00:45 :00 No 1000mL at 999 mL/hr, 1,000 mL, IV Piggyback, ONCE, 1 dose, On Sat04/30/23 at 1900, STAT [facility] proCHLORper azine (COMPAZINE) injection 5 mg 2022-07 23:45: 00 04-30 23:09 :00 No 5mg 5 mg, Slow IV Push, ONCE, 1 dose, On Sat04/30/23 at 1845, [facility] diphenhydrA MINE (BENADRYL) injection 25 mg 2022-07 0 23:00: 00 04-30 23:09 :00 No 25mg 25 mg, Slow IV Push, ONCE, 1 dose, On Sat04/30/23 at 1800, STAT [facility] dicyclomine 20 mg tablet 2022-07 00:00: 00 07-01 00:00 :00 No [id number] 20mg Take 1 tablet by mouth 4 (four) times daily. [facility] acetaminoph en (TYLENOL) tablet 1,000 mg 2022-07 02:45: 00 04-17 02:43 :00 No 1000mg 1,000 mg, Oral, ONCE, 1 dose, On Sat04/16/23 at 2145, [facility] (ZOFRAN (PF)) injection 4 mg 2022-07 03:15: 00 04-09 02:13 :00 No 4mg 4 mg, Slow IV Push, ONCE, 1 dose, On Sat04/08/23 at 2215, [facility] dicyclomine (BENTYL) tablet 20 mg 2022-07 03:15: 00 04-09 02:16 :00 No 20mg 20 mg, Oral, ONCE, 1 dose, On Sat04/08/23 at 2215, Routine [facility] ondansetron (ZOFRAN (PF)) injection 4 mg 2022-07 23:45: 00 04-08 23:16 :00 No 4mg 4 mg, Slow IV Push, ONCE, 1 dose, On Sat04/08/23 at 1845, ROSE[place]N [facility] morpHINE (2 mg/mL) injection 4 mg 2022-07 23:45: 00 04-08 23:45 :00 No 4mg 4 mg, Slow IV Push, ONCE, 1 dose, On Sat04/08/23 at 1845, STAT [facility] ondansetron 4 mg disintegrat ing tablet 2022-07 00:00: 00 07-01 00:00 :00 No [id number] 4mg Take 1 tablet by mouth every 8 (eight) hours as needed for Nausea and Vomiting (N/V). [facility] dicyclomine 20 mg tablet 2022-07 00:00: 00 04-30 00:00 :00 No [id number] 20mg Take 1 tablet by mouth 4 (four) times daily. [facility] acetaminoph en (TYLENOL) tablet 1,000 mg 03-10 04:30: 00 03-10 04:29 :00 No 1000mg 1,000 mg, Oral, ONCE, 1 dose, On 03/09/23 at 2330, RO[facility]N [facility] iopamidol (ISOVUE 370-500 mL) injection 85 mL 03-10 04:30: 00 03-10 04:30 :00 No [id number] 85mL 85 mL, Intravenou s, ONCE, 1 dose, On 03/09/23 at 2330, Routine [facility] FENTanyl PF (SUBLIMAZE (PF)) injection 75 mcg 03-10 04:00: 00 03-10 02:58 :00 No 75ug 75 mcg, Slow IV Push, ONCE, 1 dose, On 03/09/23 at 2300, STAT [facility] NaCl 0.9% (NS) IV infusion 1,000 mL 03-10 03:00: 00 Yes 1000mL at 20 mL/hr, IV Infusion, CONTINUOUS , Starting on 03/09/23 at 2200, Until Discontinu ed, Routine [facility] ondansetron (ZOFRAN (PF)) injection 4 mg 03-10 02:00: 00 03-10 02:01 :00 No 4mg 4 mg, Slow IV Push, ONCE, 1 dose, On 03/09/23 at 2100, RO[facility]N [facility] morpHINE (4 mg/mL) injection 4 mg 03-10 02:00: 00 03-10 02:01 :00 No 4mg 4 mg, Slow IV Push, ONCE, 1 dose, On 03/09/23 at 2100, STAT [facility] polyethylen e glycol 3350 (MIRALAX) 17 gram powder 03-09 00:00: 00 Yes [id number] 1{packe t} Take 1 Packet by mouth once daily as needed for Constipati on. [facility] Simethicone 125 mg 03-09 00:00: 00 Yes [id number] 125mg Take 1 capsule by mouth after meals and at bedtime as needed for Gas. [facility] iopamidol (ISOVUE 370-500 mL) injection 100 mL 03-02 06:15: 00 03-02 06:15 :00 No [id number] 100mL 100 mL, Intravenou s, ONCE, 1 dose, On 03/02/23 at 0115, Routine [facility] NaCl 0.9% (NS) IV infusion 1,000 mL 03-02 05:15: 00 Yes 1000mL at 999 mL/hr, Intravenou s, CONTINUOUS , Starting on 03/02/23 at 0015, Until Discontinu ed, Routine [facility] ketorolac (TORADOL) injection 30 mg 03-02 05:15: 00 03-02 04:20 :00 No 30mg 30 mg, Slow IV Push, ONCE, 1 dose, On 03/02/23 at 0015, Routine [facility] ondansetron (ZOFRAN (PF)) injection 4 mg 03-02 05:00: 00 03-02 05:24 :00 No 4mg 4 mg, Slow IV Push, ONCE, 1 dose, On 03/02/23 at 0000, ROSE[place]N [facility] morpHINE (4 mg/mL) injection 4 mg 03-02 05:00: 00 03-02 05:24 :00 No 4mg 4 mg, Slow IV Push, ONCE, 1 dose, On 03/02/23 at 0000, STAT [facility] ondansetron (ZOFRAN (PF)) injection 4 mg 03-02 04:15: 00 03-02 04:21 :00 No 4mg 4 mg, Slow IV Push, ONCE, 1 dose, On Sat03/01/23 at 2315, ROSE[place]N [facility] Ondansetron HCl 4 MG oral Tablet 03-02 00:00: 00 05-18 00:00 :00 No [id number] 4mg [id number] 3D Take 1 tablet (4 mg total) by mouth every 8 hours as needed. Kellee Marcio - Externa l dicyclomine 20 mg tablet 03-02 00:00: 00 04-30 00:00 :00 No [id number] 20mg Take 1 tablet by mouth every 6 (six) hours as needed for Abdominal pain. [facility] metoclopram tracy HCl (REGLAN) injection 10 mg 02-18 06:45: 00 02-18 06:43 :00 No 10mg 10 mg, Slow IV Push, ONCE, 1 dose, On Sat02/18/23 at 0145, [facility] morpHINE (4 mg/mL) injection 4 mg 02-18 05:30: 00 02-18 05:28 :00 No 4mg 4 mg, Slow IV Push, ONCE, 1 dose, On Sat02/18/23 at 0030, STAT [facility] ondansetron (ZOFRAN (PF)) injection 4 mg 02-18 05:30: 00 02-18 05:28 :00 No 4mg 4 mg, Slow IV Push, ONCE, 1 dose, On Sat02/18/23 at 0030, ROSE[place]N [facility] NaCl 0.9% (NS) bolus infusion 1,000 mL 02-18 05:30: 00 02-18 05:15 :00 No 1000mL at 999 mL/hr, 1,000 mL, IV Infusion, ONCE, 1 dose, On Sat02/18/23 at 0030, STAT [facility] proMETHazin e (PHENERGAN) 25 mg in NaCl 0.9% (NS) 50 mL IV piggyback 02-18 04:30: 00 02-18 04:28 :00 No 25mg 25 mg, IV Piggyback, ONCE, 1 dose, On Sat02/17/23 at 2330, [facility] proMETHazin e 25 mg tablet 02-18 00:00: 00 Yes [id number] 25mg Take 1 tablet by mouth every 6 (six) hours as needed for Nausea and Vomiting (N/V). [facility] escitalopra m oxalate (LEXAPRO) 5 mg tablet 02-17 16:23: 24 Yes 10mg Take 2 tablets by mouth at bedtime. [facility] topiramate (TOPAMAX) 200 mg tablet 02-17 16:23: 24 Yes 200mg Take 1 tablet by mouth every evening. [facility] bupropion HCl (WELLBUTRIN ORAL) 02-17 16:23: 24 Yes 150mg Take 150 mg by mouth every morning. [facility] OLANZapine (ZYPREXA) 15 mg tablet 02-17 16:23: 24 Yes 15mg Take 1 tablet by mouth every evening. [facility] ALPRAZOLAM ORAL 02-17 16:23: 24 Yes 2mg Take 2 mg by mouth in the morning and 2 mg in the evening. [facility] melatonin 10 mg Tab 02-17 16:23: 24 Yes 1{tbl} Take 1 tablet by mouth at bedtime. [facility] trazodone HCl (TRAZODONE ORAL) 02-17 16:23: 24 Yes 400mg Take 400 mg by mouth at bedtime. [facility] lactated ringers IV infusion 1,000 mL 02-17 02:15: 00 02-17 22:14 :00 No 1000mL at 100 mL/hr, 1,000 mL, IV Infusion, CONTINUOUS , Starting on 02/16/23 at 2115, Until 02/17/23 at 1714, Routine [facility] traZODone (DESYREL) tablet 400 mg 02-17 02:00: 00 Yes 400mg 400 mg, Oral, QHS, First dose on 02/16/23 at 2100, Until Discontinu ed [facility] melatonin (MELATIN) tablet 9 mg 02-17 02:00: 00 Yes 9mg 9 mg, Oral, QHS, First dose on 02/16/23 at 2100, Until Discontinu ed [facility] morpHINE (2 mg/mL) injection 2 mg 02-17 01:07: 50 03-01 01:06 :50 No 2mg 2 mg, Slow IV Push, Q4HPRN, Starting on 02/16/23 at 2006, Until [place] 02/28/23 at 2006, Routine, Pain (scale 7-10) [facility] OLANZapine (ZyPREXA) tablet 15 mg 02-16 22:00: 00 Yes 15mg 15 mg, Oral, QPM, First dose on 02/16/23 at 1700, Until Discontinu ed, Routine [facility] buPROPion XL (WELLBUTRIN XL) tablet 150 mg 02-16 14:00: 00 Yes 150mg 150 mg, Oral, DAILY, [facility], Until Discontinu ed [facility] enoxaparin (LOVENOX) injection 40 mg 02-16 14:00: 00 Yes 40mg 40 mg, Subcutaneo us, DAILY, [facility] at 0900, Until Discontinu ed, Routine [facility] methocarbam oL (ROBAXIN) tablet 500 mg 02-16 06:04: 59 Yes 500mg 500 mg, Oral, Q6HPRN, Starting on 02/16/23 at 0104, Until Discontinu ed, Routine, Muscle Spasms [facility] ALPRAZolam (XANAX) tablet 2 mg 02-16 06:03: 54 Yes 2mg 2 mg, Oral, TIDPRN, Starting on 02/16/23 at 0103, Until Discontinu ed, Anxiety [facility] lactated ringers IV infusion 1,000 mL 02-16 03:15: 00 02-16 23:14 :00 No 1000mL at 100 mL/hr, 1,000 mL, IV Infusion, CONTINUOUS , Starting on Sat02/15/23 at 2215, Until 02/16/23 at 1814, Routine [facility] morpHINE (2 mg/mL) injection 2 mg 02-16 03:07: 02 02-17 01:08 :14 No 2mg 2 mg, Slow IV Push, Q4HPRN, Starting on Sat02/15/23 at 2207, Until 02/16/23 at 2008, Routine, Pain (scale 7-10) [facility] traMADoL (ULTRAM) tablet 50 mg 02-16 03:06: 59 02-18 03:05 :59 No 50mg 50 mg, Oral, Q8HPRN, Starting on Sat02/15/23 at 2206, Until 02/17/23 at 2205, Routine, Pain (scale 4-6) [facility] acetaminoph en (TYLENOL) tablet 1,000 mg 02-16 03:06: 50 Yes 1000mg 1,000 mg, Oral, Q6HPRN, Starting on Sat02/15/23 at 2206, Until Discontinu ed, Routine, Pain (scale 1-3), Temp > 38 C [facility] ALPRAZolam (XANAX) 1 mg tablet 02-16 01:09: 19 02-15 00:00 :00 No 1mg Take 1 tablet by mouth in the morning and 1 tablet in the evening. [facility] iopamidol (ISOVUE 370-500 mL) injection 80 mL 02-16 00:30: 00 02-16 00:30 :00 No [id number] 80mL 80 mL, Intravenou s, ONCE, 1 dose, On Sat02/15/23 at 1930, Routine [facility] lactated ringers IV infusion 1,000 mL 02-16 00:00: 00 02-16 03:07 :30 No [id number] 1000mL at 500 mL/hr, 1,000 mL, IV Infusion, CONTINUOUS , Starting on Sat02/15/23 at 1900, Until Sat02/15/23 at 2207, ROSELYN [facility] FENTanyl PF (SUBLIMAZE (PF)) injection 75 mcg 02-15 23:45: 00 02-15 23:13 :00 No [id number] 75ug 75 mcg, Slow IV Push, ONCE, 1 dose, On Sat02/15/23 at 1845, Routine [facility] dicyclomine (BENTYL) injection 20 mg 02-15 22:15: 00 02-15 21:46 :00 No [id number] 20mg 20 mg, Intramuscu lar, ONCE NOW, 1 dose, On Sat02/15/23 at 1715, Routine [facility] LORazepam (ATIVAN) injection 1 mg 02-15 21:45: 00 02-15 21:46 :00 No [id number] 1mg 1 mg, Slow IV Push, ONCE, 1 dose, On Sat02/15/23 at 1645, STAT [facility] ondansetron (ZOFRAN (PF)) injection 4 mg 02-15 21:45: 00 02-15 21:46 :00 No [id number] 4mg 4 mg, Slow IV Push, ONCE, 1 dose, On Sat02/15/23 at 1645, ROSELYN [facility] HYDROcodone -acetaminop hen (NORCO) 10-325 mg tablet 1 tablet 02-15 20:15: 00 02-15 19:52 :00 No [id number] 1{tbl} 1 tablet, Oral, ONCE, 1 dose, On Sat02/15/23 at 1515, Routine [facility] Melatonin 1 mg tablet 02-15 20:08: 23 02-15 00:00 :00 No 10mg Take 10 tablets by mouth every evening. [facility] trazodone HCl (DESYREL ORAL) 02-15 20:06: 33 02-15 00:00 :00 No 200mg Take 200 mg by mouth every evening. [facility] OLANZapine (ZYPREXA) 2.5 mg tablet 02-15 20:05: 48 02-15 00:00 :00 No 2.5mg Take 1 tablet by mouth in the morning and 1 tablet in the evening. [facility] hydrOXYzine (VISTARIL) 50 mg capsule 02-15 20:03: 04 02-15 00:00 :00 No 50mg Take 1 capsule by mouth every 4 (four) hours as needed for Itching. q 4-6 hours as needed [facility] dicyclomine (BENTYL) tablet 20 mg 02-15 19:30: 00 02-15 19:52 :00 No [id number] 20mg 20 mg, Oral, ONCE, 1 dose, On Sat02/15/23 at 1430, [facility] ibup[facility] (IBU) tablet 800 mg 02-15 19:30: 00 02-15 19:52 :00 No [id number] 800mg 800 mg, Oral, ONCE, 1 dose, On Sat02/15/23 at 1430, ROSELYN [facility] losartan 50 mg tablet 02-15 13:44: 36 02-15 00:00 :00 No 50mg Take 1 tablet by mouth in the morning. [facility] [place]-3-DHA -EPA-Fish Oil (FISH OIL) 1,000 mg (120 mg-180 mg) Cap 02-15 13:44: 15 02-15 00:00 :00 No 1000mg Take 1,000 mg by mouth daily. [facility] methocarbam oL 750 mg tablet 02-15 13:43: 47 02-15 00:00 :00 No 750mg Take 750 mg by mouth 3 (three) times daily. [facility] FENTanyl PF (SUBLIMAZE (PF)) injection 50 mcg 01-10 00:45: 00 01-09 23:46 :00 No 50ug 50 mcg, Slow IV Push, ONCE, 1 dose, On Sat01/09/22 at 1945, Routine [facility] ketorolac (TORADOL) injection 30 mg 01-09 23:45: 00 01-09 22:48 :00 No 30mg 30 mg, Slow IV Push, ONCE, 1 dose, On Sat01/09/22 at 1845, Routine [facility] aspirin chewable tablet 243 mg 12-14 14:00: 00 Yes 243mg 243 mg, Oral, DAILY, First dose on Sat12/14/21 at 0900, Until Discontinu ed, Routine [facility] ketorolac (TORADOL) injection 15 mg 12-14 08:15: 00 12-14 07:11 :00 No 15mg 15 mg, Slow IV Push, ONCE, 1 dose, On Sat12/14/21 at 0315, ROSELYN [facility] morpHINE (4 mg/mL) injection 4 mg 12-14 05:45: 00 12-14 04:52 :00 No 4mg 4 mg, Slow IV Push, ONCE, 1 dose, On Sat12/14/21 at 0045, STAT [facility] cefTRIAXone (ROCEPHIN) 1,000 mg in NaCl 0.9% (NS) 50 mL MINI-BAG 12-14 05:45: 00 12-14 05:30 :00 No 1000mg 1,000 mg, IV Piggyback, ONCE, 1 dose, On Sat12/14/21 at 0045, Administer over 30 Minutes, 50 mL
Reas on for Anti-Infec tive: Documented Infection< br>Documen kaushik Infection Site: Urine
D uration of Therapy: Other (see Comments) [facility] NaCl 0.9% (NS) bolus infusion 1,000 mL 12-14 05:45: 00 12-14 07:20 :00 No 1000mL at 999 mL/hr, 1,000 mL, IV Infusion, ONCE, 1 dose, On Sat12/14/21 at 0045, ROSELYN [facility] ondansetron (ZOFRAN (PF)) injection 4 mg 12-14 04:45: 00 12-14 03:50 :00 No 4mg 4 mg, Slow IV Push, ONCE, 1 dose, On Sat12/13/21 at 2345, ROSELYN [facility] FENTanyl PF (SUBLIMAZE (PF)) injection 50 mcg 12-14 04:45: 00 12-14 03:50 :00 No 50ug 50 mcg, Slow IV Push, ONCE, 1 dose, On 12/13/21 at 2345, Routine [facility] ALPRAZolam (XANAX) 1 mg tablet 12-14 02:22: 13 Yes 1mg Take 1 mg by mouth 2 (two) times daily. [facility] naproxen 500 mg tablet 12-14 00:00: 00 02-15 00:00 :00 No [id number] 500mg Take 1 tablet by mouth 2 (two) times daily with meals. [facility] cefpodoxime 200 mg tablet 12-14 00:00: 00 12-22 04:59 :00 No [id number] 200mg Take 1 tablet by mouth 2 (two) times daily for 7 days. [facility] LORazepam (ATIVAN) injection 1 mg 11-12 05:00: 00 11-12 04:01 :00 No 1mg 1 mg, Slow IV Push, ONCE, 1 dose, On 11/12/21 at 0000, STAT [facility] ketorolac (TORADOL) injection 30 mg 11-12 03:30: 00 11-12 02:26 :00 No 30mg 30 mg, Slow IV Push, ONCE, 1 dose, On 11/11/21 at 2230, Routine
service member approving Restricted medication : DEE WANG [facility] nitroglycer in (NITROSTAT) sublingual tablet 0.4 mg 11-12 03:30: 00 11-12 02:26 :00 No .4mg 0.4 mg, Sublingual , ONCE, 1 dose, On 11/11/21 at 2230, ROSELYN [facility] aspirin E.C. (ECOTRIN) tablet 325 mg 11-12 03:30: 00 11-12 02:25 :00 No 325mg 325 mg, Oral, ONCE, 1 dose, On 11/11/21 at 2230, STAT [facility] morpHINE (4 mg/mL) injection 4 mg 11-12 02:30: 00 11-12 01:40 :00 No 4mg 4 mg, Slow IV Push, ONCE, 1 dose, On 11/11/21 at 2130, STAT [facility] ondansetron (ZOFRAN (PF)) injection 4 mg 11-12 02:30: 00 11-12 01:40 :00 No 4mg 4 mg, Slow IV Push, ONCE, 1 dose, On 11/11/21 at 2130, ROSELYN [facility] NaCl 0.9% (NS) bolus infusion 1,000 mL 11-12 02:30: 00 11-12 02:30 :00 No 1000mL at 999 mL/hr, 1,000 mL, IV Infusion, ONCE, 1 dose, On 11/11/21 at 2130, [facility] hydrOXYzine 50 mg tablet 11-11 00:00: 00 04-08 00:00 :00 No [id number] 50mg Take 1 tablet by mouth every 8 (eight) hours as needed for Anxiety. [facility] ketorolac (TORADOL) injection 30 mg 09-12 05:45: 00 09-12 04:54 :00 No 30mg 30 mg, Slow IV Push, ONCE, 1 dose, On Sat09/11/21 at 2345, Routine
service member approving Restricted medication : DEE WANG [facility] cefTRIAXone (ROCEPHIN) 1,000 mg in NaCl 0.9% (NS) 50 mL MINI-BAG 09-12 03:45: 00 09-12 03:41 :00 No 1000mg 1,000 mg, IV Piggyback, ONCE, 1 dose, On Sat09/11/21 at 2145, Administer over 30 Minutes, 50 mL
Reas on for Anti-Infec tive: Documented Infection< br>Documen kaushik Infection Site: Urine
D uration of Therapy: 7 days [facility] ondansetron (ZOFRAN (PF)) injection 4 mg 09-12 03:15: 00 09-12 02:39 :00 No 4mg 4 mg, Slow IV Push, ONCE, 1 dose, On Sat09/11/21 at 2115, ROSELYN [facility] morpHINE injection 4 mg 09-12 03:15: 00 09-12 02:39 :00 No 4mg 4 mg, Slow IV Push, ONCE, 1 dose, On Sat09/11/21 at 2115, STAT [facility] iopamidol (ISOVUE 370-500 mL) injection 120 mL 09-12 02:45: 00 09-12 03:00 :00 No [id number] 120mL 120 mL, Intravenou s, ONCE, 1 dose, On Sat09/11/21 at 2100, Routine [facility] sodium chloride (NS) injection 5 mL 09-12 01:33: 26 Yes 5mL 5 mL, Intravenou s, PRN, Starting on Sat09/11/21 at 1933, Until Discontinu ed, Routine, IV line flushing [facility] ibuprofen 600 mg tablet 09-11 00:00: 00 02-15 00:00 :00 No [id number] 600mg Take 1 tablet by mouth every 6 (six) hours as needed for Pain (scale 4-6). [facility] cefdinir 300 mg capsule 09-11 00:00: 00 09-19 04:59 :00 No [id number] 300mg Take 1 capsule by mouth 2 (two) times daily for 7 days. [facility] HYDROcodone -acetaminop hen (NORCO) 10-325 mg tablet 1 tablet 08-15 09:00: 00 08-15 07:59 :00 No 1{tbl} 1 tablet, Oral, ONCE, 1 dose, On Sat08/15/21 at 0300, Routine [facility] FENTanyl PF (SUBLIMAZE (PF)) injection 75 mcg 08-15 07:30: 00 08-15 06:42 :00 No 75ug 75 mcg, Intramuscu lar, ONCE, 1 dose, On Sat08/15/21 at 0130, Routine [facility] methocarbam oL (ROBAXIN) 500 mg tablet 08-15 00:00: 00 Yes [id number] 500mg Take 1 tablet by mouth every 6 (six) hours as needed for Pain (scale 7-10) (MUSCLE SPASM). [facility] traMADoL (ULTRAM) 50 mg tablet 08-15 00:00: 00 Yes [id number] 50mg Take 1 tablet by mouth every 6 (six) hours as needed for Pain (scale 7-10). Indication s: acute pain [facility] Nitrofurant oin&Nit. Macrocryst (MACROBID) 100 mg capsule 08-15 00:00: 00 02-15 00:00 :00 No [id number] 100mg Take 1 capsule by mouth 2 (two) times daily. [facility] [facility] morpHINE injection 4 mg 2020-07 08:30: 00 05-28 07:50 :00 No 4mg 4 mg, Slow IV Push, ONCE, 1 dose, On 05/28/21 at 0230, ROSELYN [facility] maalox:diph enhydrAMINE :lidocaine 2 % viscous 1:1:1 (FIRST-[facility]) oral suspension 15 mL 2020-07 08:00: 00 05-28 07:04 :00 No 15mL 15 mL, Oral, ONCE, 1 dose, On 05/28/21 at 0200, Routine [facility] FENTanyl PF (SUBLIMAZE (PF)) injection 50 mcg 2020-07 07:00: 00 05-28 06:02 :00 No 50ug 50 mcg, Slow IV Push, ONCE, 1 dose, On 05/28/21 at 0100, STAT [facility] famotidine (PEPCID (PF)) injection 20 mg 2020-07 07:00: 00 05-28 06:01 :00 No 20mg 20 mg, Slow IV Push, ONCE, 1 dose, On 05/28/21 at 0100, ROSELYN [facility] famotidine 20 mg tablet 2020-07 00:00: 00 06-13 05:59 :00 No [id number] 20mg Take 1 tablet by mouth 2 (two) times daily for 15 days. [facility] escitalopra m oxalate (LEXAPRO) tablet 10 mg 2020-07 02:00: 00 Yes 10mg 10 mg, Oral, QHS, First dose on 04/08/21 at 2100, Until Discontinu ed, Routine [facility] aspirin 81 mg chewable tablet 2020-07 00:00: 00 05-10 04:59 :00 No [id number] 81mg Take 1 tablet by mouth daily for 30 days. [facility] traZODone (DESYREL) tablet 200 mg 2020-07 22:00: 00 Yes 200mg 200 mg, Oral, QPM, First dose on 04/08/21 at 1700, Until Discontinu ed [facility] topiramate (TOPAMAX) tablet 200 mg 2020-07 22:00: 00 Yes 200mg 200 mg, Oral, QPM, First dose on 04/08/21 at 1700, Until Discontinu ed, Routine
service member approving Restricted medication : ALEXEY ALEGRE [facility] OLANZapine (ZyPREXA) tablet 15 mg 2020-07 22:00: 00 Yes 15mg 15 mg, Oral, QPM, First dose on 04/08/21 at 1700, Until Discontinu ed, Routine [facility] melatonin (MELATIN) tablet 9 mg 2020-07 22:00: 00 Yes 9mg 9 mg, Oral, QPM, First dose on 04/08/21 at 1700, Until Discontinu ed [facility] methocarbam oL 750 mg tablet 2020-07 17:45: 33 Yes 750mg Take 750 mg by mouth 3 (three) times daily. [facility] [place]-3-DHA -EPA-Fish Oil (FISH OIL) 1,000 mg (120 mg-180 mg) Cap 2020-07 17:45: 33 Yes 1000mg Take 1,000 mg by mouth daily. [facility] hydrOXYzine (VISTARIL) 50 mg capsule 2020-07 17:45: 33 Yes 50mg Take 50 mg by mouth every 4 (four) hours as needed for Itching. q 4-6 hours as needed [facility] losartan 50 mg tablet 2020-07 17:45: 33 Yes 50mg Take 50 mg by mouth daily. [facility] trazodone HCl (DESYREL ORAL) 2020-07 17:45: 33 Yes 200mg Take 200 mg by mouth every evening. [facility] escitalopra m oxalate (LEXAPRO) 5 mg tablet 2020-07 17:45: 33 Yes 10mg Take 10 mg by mouth at bedtime. [facility] Melatonin 1 mg tablet 2020-07 17:45: 33 Yes 10mg Take 10 mg by mouth every evening. [facility] topiramate (TOPAMAX) 200 mg tablet 2020-07 17:45: 33 Yes 200mg Take 200 mg by mouth every evening. [facility] bupropion HCl (WELLBUTRIN ORAL) 2020-07 17:45: 33 Yes 150mg Take 150 mg by mouth every morning. [facility] OLANZapine (ZYPREXA) 15 mg tablet 2020-07 17:45: 33 Yes 15mg Take 15 mg by mouth every evening. [facility] OLANZapine (ZYPREXA) 2.5 mg tablet 2020-07 17:45: 33 Yes 2.5mg Take 2.5 mg by mouth 2 (two) times daily. [facility] furosemide (LASIX) injection 20 mg 2020-07 14:30: 00 Yes 20mg 20 mg, Slow IV Push, Q12H, First dose on 04/08/21 at 0930, Until Discontinu ed, Routine [facility] losartan (COZAAR) tablet 50 mg 2020-07 14:00: 00 Yes 50mg 50 mg, Oral, DAILY, First dose on 04/08/21 at 0900, Until Discontinu ed, Routine [facility] buPROPion XL (WELLBUTRIN XL) tablet 150 mg 2020-07 14:00: 00 Yes 150mg 150 mg, Oral, DAILY, First dose on 04/08/21 at 0900, Until Discontinu ed [facility] 81 mg 2020-07 14:00: 00 Yes 81mg 81 mg, Oral, DAILY, First dose on 04/08/21 at 0900, Until Discontinu ed, Routine [facility] enoxaparin (LOVENOX) injection 40 mg 2020-07 14:00: 00 Yes 40mg 40 mg, Subcutaneo us, DAILY, First dose on 04/08/21 at 0900, Until Discontinu ed, Routine [facility] OLANZapine (ZyPREXA) tablet 2.5 mg 2020-07 13:00: 00 Yes 2.5mg 2.5 mg, Oral, BID, First dose on 04/08/21 at 0800, Until Discontinu ed, Routine [facility] methocarbam oL (ROBAXIN) tablet 750 mg 2020-07 13:00: 00 Yes 750mg 750 mg, Oral, TID, First dose on 04/08/21 at 0800, Until Discontinu ed, Routine [facility] LORazepam (ATIVAN) injection 0.5 mg 2020-07 04:07: 43 Yes .5mg 0.5 mg, Slow IV Push, PRN, 2 doses, Starting on Sat04/07/21 at 2307, Until Discontinu ed, Routine, Anxiety [facility] hydrOXYzine (ATARAX) tablet 50 mg 2020-07 02:51: 23 Yes 50mg 50 mg, Oral, Q4HPRN, Starting on Sat04/07/21 at 2151, Until Discontinu ed, Itching [facility] LORazepam (ATIVAN) tablet 0.5 mg 2020-07 02:05: 29 Yes .5mg 0.5 mg, Oral, PRN, 2 doses, Starting on Sat04/07/21 at 2105, Until Discontinu ed, Routine, Anxiety [facility] morpHINE injection 4 mg 2020-07 0 00:00: 00 04-07 22:58 :00 No 4mg 4 mg, Slow IV Push, ONCE, 1 dose, On Sat04/07/21 at 1900, STAT [facility] ondansetron (ZOFRAN (PF)) injection 4 mg 2020-07 0 00:00: 00 04-07 22:56 :00 No 4mg 4 mg, Slow IV Push, ONCE, 1 dose, On Sat04/07/21 at 1900, ROSELYN [facility] morpHINE injection 4 mg 2020-07 23:58: 03 04-08 23:57 :03 No 4mg 4 mg, Slow IV Push, Q4HPRN, Starting on Sat04/07/21 at 1858, Until 04/08/21 at 1857, Routine, Pain (scale 7-10) [facility] HYDROcodone -acetaminop hen (NORCO 5) 5-325 mg tablet 1 tablet 2020-07 23:58: 00 04-09 23:57 :00 No 1{tbl} 1 tablet, Oral, Q6HPRN, Starting on Sat04/07/21 at 1858, Until 04/09/21 at 1857, Routine, Pain (scale 4-6) [facility] acetaminoph en (TYLENOL) tablet 650 mg 2020-07 23:57: 57 Yes 650mg 650 mg, Oral, Q6HPRN, Starting on Sat04/07/21 at 1857, Until Discontinu ed, Routine, Pain (scale 1-3) [facility] aspirin tablet 325 mg 2020-07 23:00: 00 04-07 21:56 :00 No 325mg 325 mg, Oral, ONCE, 1 dose, On Sat04/07/21 at 1800, STAT [facility] nitroglycer in (NITROSTAT) sublingual tablet 0.4 mg 2020-07 21:51: 01 04-07 22:46 :00 No .4mg 0.4 mg, Sublingual , Q5MIN PRN, 3 doses, Starting on Sat04/07/21 at 1651, Until Discontinu ed, ROSELYN, Chest pain [facility] fluconazole (DIFLUCAN) tablet 150 mg 01-12 14:00: 00 Yes 150mg 150 mg, Oral, DAILY, First dose on [place] 01/12/21 at 0900, Until Discontinu ed, ROSELYN
Re ason for Anti-Infec tive: Empiric Therapy for Suspected Infection< br>Empiric Therapy Site: HEENT
D uration of therapy: 72 hours [facility] cefTRIAXone (ROCEPHIN) 1,000 mg in NaCl 0.9% (NS) 50 mL MINI-BAG 01-12 10:15: 00 01-12 09:49 :00 No 1000mg 1,000 mg, IV Piggyback, ONCE, 1 dose, [place] 01/12/21 at 0515, 50 mL
Reas on for Anti-Infec tive: Empiric Therapy for Suspected Infection< br>Empiric Therapy Site: Urine
D uration of therapy: 72 hours [facility] hydrOXYzine (ATARAX) tablet 25 mg 01-12 10:15: 00 01-12 09:18 :00 No 25mg 25 mg, Oral, ONCE, 1 dose, [place] 01/12/21 at 0515, ROSELYN [facility] HYDROcodone -acetaminop hen (NORCO) 10-325 mg tablet 1 tablet 01-12 10:15: 00 01-12 09:18 :00 No 1{tbl} 1 tablet, Oral, ONCE, 1 dose, [place] 01/12/21 at 0515, Routine [facility] maalox:diph enhydrAMINE :lidocaine2 %viscous 1:1:1: suspension (COMPOUNDED ) 01-12 09:30: 00 01-12 08:25 :00 No 15mL 15 mL, Oral, ONCE, 1 dose, [place] 01/12/21 at 0430, Routine [facility] cephALEXin (KEFLEX) 500 mg capsule 01-12 00:00: 00 04-07 00:00 :00 No [id number] 500mg Take 1 capsule by mouth 3 (three) times daily. [facility] HYDROcodone -acetaminop hen (NORCO 5) 5-325 mg tablet 1 tablet 12-11 02:00: 00 12-11 01:29 :00 No 1{tbl} 1 tablet, Oral, ONCE, 1 dose, 12/10/20 at 2100, ROSE[place]N [facility] LORazepam (ATIVAN) injection 1 mg 12-11 00:30: 00 12-10 23:36 :00 No 1mg 1 mg, Slow IV Push, ONCE, 1 dose, 12/10/20 at 1930, STAT [facility] ketorolac (TORADOL) injection 30 mg 12-11 00:30: 00 12-10 23:36 :00 No 30mg 30 mg, Slow IV Push, ONCE, 1 dose, 12/10/20 at 1930, [facility]N
[facility] Restricted medication : EMERGENCY ROOM, [facility] ondansetron (ZOFRAN (PF)) injection 4 mg 12-10 23:45: 00 12-10 22:46 :00 No 4mg 4 mg, Slow IV Push, ONCE, 1 dose, 12/10/20 at 1845, RO[place]N [facility] NaCl 0.9% (NS) bolus infusion 2,000 mL 12-10 22:45: 00 12-11 01:29 :00 No 2000mL at 999 mL/hr, 2,000 mL, IV Infusion, ONCE, 1 dose, 12/10/20 at 1745, RO[place]N [facility] proMETHazin e 25 mg tablet 12-10 00:00: 04-07 00:00 :00 No [id number] 12.5mg Take 0.5 tablets by mouth every 6 (six) hours as needed for N/V unresponsi ve to Ondansetro n. [facility] morpHINE injection 4 mg 12-04 22:30: 00 12-04 21:37 :00 No 4mg 4 mg, Slow IV Push, ONCE, 1 dose, 12/04/20 at 1730, STAT [facility] losartan 50 mg tablet 12-04 22:03: 53 Yes 50mg Take 50 mg by mouth daily. [facility] LORazepam (ATIVAN) tablet 1 mg 12-04 21:45: 00 12-04 20:44 :00 No 1mg 1 mg, Oral, ONCE, 1 dose, 12/04/20 at 1645, [facility] ondansetron (ZOFRAN (PF)) injection 4 mg 12-04 21:15: 00 12-04 20:22 :00 No 4mg 4 mg, Slow IV Push, ONCE, 1 dose, 12/04/20 at 1615, [facility] morpHINE injection 4 mg 12-04 21:15: 00 12-04 20:21 :00 No 4mg 4 mg, Slow IV Push, ONCE, 1 dose, 12/04/20 at 1615, STAT [facility] ALPRAZolam (XANAX) 2 mg tablet 11-04 04:24: 19 11-03 00:00 :00 No 2mg Take 2 mg by mouth at bedtime. [facility] LORazepam (ATIVAN) injection 1 mg 11-04 04:00: 00 11-04 02:57 :00 No 1mg 1 mg, Slow IV Push, ONCE, 1 dose, [facility] 11/03/20 at 2300, STAT [facility] LORazepam (ATIVAN) tablet 1 mg 11-04 04:00: 00 11-04 02:57 :00 No 1mg 1 mg, Oral, ONCE, 1 dose, [facility] 11/03/20 at 2300, ROSE[place]N [facility] clonazePAM 0.5 mg tablet 11-01 00:00: 00 04-07 00:00 :00 No .5mg Take 0.5 mg by mouth. [facility] SERTraline 100 mg tablet 11-01 00:00: 00 04-07 00:00 :00 No 100mg Take 100 mg by mouth. [facility] busPIRone 10 mg tablet 10-18 00:00: 00 04-07 00:00 :00 No 10mg Take 10 mg by mouth. [facility] Ciprofloxac in/Dexameth asone (Ciprodex 0.3%-0.1% Otic*) 1 Ea SUSP Ciprofloxac in/Dexameth asone (Ciprodex 0.3%-0.1% Otic*) 1 Ea SUSP 09-19 13:53: 00 09-30 00:00 :00 [facility] ibuprofen (IBU) tablet 800 mg 09-17 16:55: 00 09-17 16:57 :00 No 800mg 800 mg, Oral, ONCE, 1 dose, 09/17/20 at 1100, ROSE[place]N [facility] benzonatate 100 mg capsule 09-17 00:00: 00 04-07 00:00 :00 No [id number] 100mg Take 1 capsule by mouth 3 (three) times daily as needed for Cough. [facility] amoxicillin 500 mg capsule 09-17 00:00: 00 09-28 04:59 :00 No [id number] 500mg Take 1 capsule by mouth 3 (three) times daily for 10 days. [facility] HYDROcodone -acetaminop hen (NORCO) 10-325 mg tablet 1 tablet 09-07 07:45: 00 09-07 07:09 :00 No 1{tbl} 1 tablet, Oral, ONCE, 1 dose, 09/07/20 at 0145, Routine [facility] ondansetron (ZOFRAN-ODT ) disintegrat ing tablet 4 mg 09-07 07:15: 00 09-07 07:15 :00 No 4mg 4 mg, Oral, ONCE, 1 dose, 09/07/20 at 0130, Routine [facility] ibuprofen 800 mg tablet 09-07 00:00: 00 Yes [id number] 800mg Take 1 tablet by mouth every 8 (eight) hours as needed for Pain (scale 4-6). [facility] ketorolac (TORADOL) injection 30 mg 08-28 10:45: 00 08-28 09:48 :00 No 30mg 30 mg, Slow IV Push, ONCE, 1 dose, 08/28/20 at 0445, Routine
service member approving Restricted medication : OLIVIA GARCIA [facility] ondansetron (ZOFRAN (PF)) injection 4 mg 08-28 10:00: 00 08-28 09:06 :00 No 4mg 4 mg, Slow IV Push, ONCE, 1 dose, 08/28/20 at 0400, ROSE[place]N [facility] FENTanyl PF (SUBLIMAZE (PF)) injection 50 mcg 08-28 10:00: 00 08-28 09:07 :00 No 50ug 50 mcg, Slow IV Push, ONCE, 1 dose, 08/28/20 at 0400, Routine [facility] maalox:diph enhydrAMINE :lidocaine 2 % viscous 1:1:1 (FIRST-[facility]) oral suspension 15 mL 08-28 10:00: 00 08-28 09:07 :00 No 15mL 15 mL, Oral, ONCE, 1 dose, 08/28/20 at 0400, Routine [facility] iohexol (OMNIPAQUE 350 BULK-100 mL) injection 120 mL 08-28 09:30: 00 08-28 09:11 :00 No 120mL 120 mL, Intravenou s, ONCE, 1 dose, 08/28/20 at 0330, Routine [facility] dicyclomine 20 mg tablet 08-28 00:00: 04-07 00:00 :00 No [id number] 20mg Take 1 tablet by mouth every 6 (six) hours as needed for Abdominal pain. [facility] ondansetron (ZOFRAN) 4 mg tablet 08-28 00:00: 00 09-17 00:00 :00 No [id number] 4mg Take 1 tablet by mouth every 8 (eight) hours as needed for Nausea and Vomiting (N/V). [facility] FENTanyl PF (SUBLIMAZE (PF)) injection 25 mcg 08-14 19:00: 08-14 18:09 :00 No 25ug 25 mcg, Slow IV Push, ONCE, 1 dose, 08/14/20 at 1300, STAT [facility] ondansetron (ZOFRAN (PF)) injection 4 mg 08-14 19:00: 08-14 18:10 :00 No 4mg 4 mg, Slow IV Push, ONCE, 1 dose, 08/14/20 at 1300, ROSE[place]N [facility] ketorolac (TORADOL) injection 15 mg 08-14 19:00: 00 08-14 18:09 :00 No 15mg 15 mg, Slow IV Push, ONCE, 1 dose, 08/14/20 at 1300, ROSELYN
Fa culty member approving Restricted medication : BEST TAYLOR [facility] piperacilli n-tazobacta m (ZOSYN) 3.375 g in NaCl 0.9% (NS) 100 mL MINI-BAG 08-14 19:00: 08-14 18:38 :00 No 3.375g 3.375 g, IV Piggyback, ONCE, 1 dose, 08/14/20 at 1300, 100 mL
Reas on for Anti-Infec tive: Documented Infection< br>Documen kaushik Infection Site: Urine
D uration of Therapy: Other (see Comments) [facility] NaCl 0.9% (NS) bolus infusion 1,000 mL 08-14 19:00: 00 08-14 19:00 :00 No 1000mL at 999 mL/hr, 1,000 mL, IV Infusion, ONCE, 1 dose, 08/14/20 at 1300, STAT [facility] guaiFENesin 100 mg/5 mL solution 08-14 00:00: 04-07 00:00 :00 No [id number] 100mg Take 5 mL by mouth every 4 (four) hours. [facility] ondansetron 4 mg disintegrat ing tablet 08-14 00:00: 00 09-17 00:00 :00 No [id number] 4mg Take 1 tablet by mouth every 8 (eight) hours as needed for Nausea and Vomiting (N/V). [facility] ibuprofen 600 mg tablet 08-14 00:00: 09-17 00:00 :00 No [id number] 600mg Take 1 tablet by mouth every 6 (six) hours as needed for Pain (scale 4-6). [facility] amoxicillin -clavulanat e 875-125 mg per tablet 08-14 00:00: 00 08-25 05:59 :00 No [id number] 1{tbl} Take 1 tablet by mouth 2 (two) times daily for 10 days. [facility] fluconazole (DIFLUCAN) tablet 150 mg 08-11 15:00: 00 Yes 150mg 150 mg, Oral, DAILY, First dose on [place] 08/11/20 at 0900, Until Discontinu ed, ROSELYN
Re ason for Anti-Infec tive: Documented Infection< br>Documen kaushik Infection Site: Urine
D uration of Therapy: Other (see Comments) [facility] HYDROcodone -acetaminop hen (NORCO) 10-325 mg tablet 1 tablet 08-11 05:30: 00 08-11 05:08 :00 No 1{tbl} 1 tablet, Oral, ONCE NOW, 1 dose, 08/10/20 at 2330, Routine [facility] FENTanyl PF (SUBLIMAZE (PF)) injection 25 mcg 2-04 04:30: 00 08-11 03:19 :00 No 25ug 25 mcg, Slow IV Push, ONCE, 1 dose, Sat08/10/20 at 2230, STAT [facility] ondansetron (ZOFRAN (PF)) injection 4 mg 2- 04:15: 00 08-11 03:19 :00 No 4mg 4 mg, Slow IV Push, ONCE, 1 dose, Sat08/10/20 at 2215, ROSELYN [facility] NaCl 0.9% (NS) bolus infusion 1,000 mL 08-11 01:45: 00 08-11 03:45 :00 No 1000mL at 999 mL/hr, 1,000 mL, IV Infusion, ONCE, 1 dose, Sat08/10/20 at 1945, STAT [facility] ketorolac (TORADOL) injection 30 mg - 01:45: 00 08-11 02:31 :00 No 30mg 30 mg, Slow IV Push, ONCE, 1 dose, Sat08/10/20 at 1945, ROSELYN
Fa culty member approving Restricted medication : BEST TAYLOR [facility] traMADoL (ULTRAM) 50 mg tablet 08-10 00:00: 00 09-17 00:00 :00 No [id number] 50mg Take 1 tablet by mouth every 6 (six) hours as needed for Pain (scale 7-10). Indication s: acute pain [facility] ibuprofen 800 mg tablet 08-07 00:00: 00 09-17 00:00 :00 No [id number] 800mg Take 1 tablet by mouth every 8 (eight) hours. [facility] amoxicillin 500 mg capsule 08-07 00:00: 00 09-17 00:00 :00 No [id number] 500mg Take 1 capsule by mouth 3 (three) times daily. [facility] traMADoL 50 mg tablet 08-07 00:00: 00 09-17 00:00 :00 No [id number] 50mg Take 1 tablet by mouth every 6 (six) hours as needed for Pain (scale 4-6). Indication s: acute pain [facility] LORazepam (ATIVAN) tablet 1 mg 2019-07 03:15: 00 07-01 02:21 :00 No 1mg 1 mg, Oral, ONCE, 1 dose, [place] 06/30/20 at 2115, ROSELYN [facility] FENTanyl PF (SUBLIMAZE (PF)) injection 50 mcg 2019-07 02:30: 00 07-01 01:39 :00 No 50ug 50 mcg, Slow IV Push, ONCE, 1 dose, [place] 06/30/20 at 2030, Routine [facility] ondansetron (ZOFRAN-ODT ) disintegrat ing tablet 4 mg 2019-07 01:15: 07-01 00:52 :00 No 4mg 4 mg, Oral, ONCE, 1 dose, [place] 06/30/20 at 1915, Routine [facility] ketorolac (TORADOL) injection 30 mg 2019-07 01:15: 00 07-01 00:52 :00 No 30mg 30 mg, Slow IV Push, ONCE, 1 dose, [place] 06/30/20 at 1915, ROSELYN
Fa culty member approving Restricted medication : ABDIAS ROBERTSON [facility] albuterol 90 mcg/actuati on inhaler 2019-07 00:00: 00 04-07 00:00 :00 No [id number] 2{puff} Inhale 2 Puffs every 4 (four) hours as needed for Wheezing or Shortness of Breath. [facility] hydrOXYzine 25 mg tablet 2019-07 00:00: 00 09-17 00:00 :00 No [id number] 25mg Take 1 tablet by mouth every 6 (six) hours as needed for Anxiety. [facility] naproxen sodium (ANAPROX DS) 550 mg tablet 2019-07 00:00: 00 04-07 00:00 :00 No [id number] 550mg Take 1 tablet by mouth 2 (two) times daily with meals. [facility] methylPREDN ISolone (MEDROL, BEBETO,) 4 mg tablets 2019-07 00:00: 00 09-17 00:00 :00 No [id number] Take by mouth SEE-INSTRU CTIONS. follow package directions [facility] methocarbam oL 500 mg tablet 2019-07 00:00: 00 07-04 05:59 :00 No [id number] 500mg Take 1 tablet by mouth 3 (three) times daily for 5 days. [facility] proMETHazin e (PHENERGAN) tablet 25 mg 2019-07 04:45: 00 06-13 03:37 :00 No 25mg 25 mg, Oral, ONCE, 1 dose, 06/12/20 at 2245, ROSE[place]N [facility] ondansetron (ZOFRAN (PF)) injection 4 mg 2019-07 03:00: 00 06-13 01:59 :00 No 4mg 4 mg, Slow IV Push, ONCE, 1 dose, 06/12/20 at 2100, RO[place]N [facility] ketorolac (TORADOL) injection 15 mg 2019-07 03:00: 00 06-13 01:58 :00 No 15mg 15 mg, Intramuscu lar, ONCE, 1 dose, 06/12/20 at 2100, ROSELYN
Fa culty member approving Restricted medication : LEEANNE WISE [facility] morpHINE injection 4 mg 2019-07 01:30: 00 06-13 00:41 :00 No 4mg 4 mg, Slow IV Push, ONCE, 1 dose, 06/12/20 at 1930, STAT [facility] ondansetron (ZOFRAN (PF)) injection 4 mg 2019-07 00:45: 00 06-13 00:41 :00 No 4mg 4 mg, Slow IV Push, ONCE, 1 dose, 06/12/20 at 1845, ROSE[place]N [facility] NaCl 0.9% (NS) bolus infusion 1,000 mL 2019-07 23:45: 00 06-13 03:54 :00 No 1000mL at 999 mL/hr, 1,000 mL, IV Infusion, ONCE, 1 dose, 06/12/20 at 1745, RO[place]N [facility] dicyclomine 20 mg tablet 2019-07 00:00: 00 04-07 00:00 :00 No [id number] 20mg Take 1 tablet by mouth 4 (four) times daily as needed for Abdominal pain. [facility] proMETHazin e 25 mg tablet 2019-07 00:00: 00 09-17 00:00 :00 No [id number] 25mg Take 1 tablet by mouth every 6 (six) hours as needed for Nausea and Vomiting (N/V). [facility] famotidine 20 mg tablet 2019-07 00:00: 00 06-27 05:59 :00 No [id number] 20mg Take 1 tablet by mouth at bedtime for 14 days. [facility] haloperidol lactate (HALDOL) injection 2.5 mg 2019-07 01:00: 00 05-16 23:51 :00 No 2.5mg 2.5 mg, Intravenou s, ONCE, 1 dose, 05/16/20 at 1900, STAT [facility] NaCl 0.9% (NS) bolus infusion 1,000 mL 2019-07 23:45: 00 05-17 00:54 :00 No 1000mL at 999 mL/hr, 1,000 mL, IV Infusion, ONCE, 1 dose, 05/16/20 at 1745, ROSE[place]N [facility] proMETHazin e (PHENERGAN) 25 mg suppository 2019-07 00:00: 00 Yes [id number] 25mg Insert 1 Suppositor y into rectum every 4 (four) hours as needed for Nausea and Vomiting (N/V). [facility] ondansetron (ZOFRAN (PF)) injection 4 mg 2019-07 07:30: 00 05-15 06:26 :00 No 4mg 4 mg, Slow IV Push, ONCE, 1 dose, [place] 05/15/20 at 0130, ROSELYN [facility] iohexol (OMNIPAQUE 350 BULK-100 mL) injection 120 mL 2019-07 07:00: 00 05-15 06:52 :00 No 120mL 120 mL, Intravenou s, ONCE, 1 dose, [place] 05/15/20 at 0100, Routine [facility] ondansetron (ZOFRAN (PF)) injection 4 mg 2019-07 06:30: 00 05-15 05:52 :00 No 4mg 4 mg, Slow IV Push, ONCE, 1 dose, [place] 05/15/20 at 0030, ROSE[place]N [facility] ALPRAZolam (XANAX) 2 mg tablet 2019-07 05:30: 59 Yes 2mg Take 2 mg by mouth at bedtime. [facility] zolpidem 5 mg tablet 12-20 00:00: 00 04-07 00:00 :00 No 5mg Take 5 mg by mouth. [facility] Immunizations Ordered Immunization Name Filled Immunization Name Date Status Comments Source Covid-19 Vaccine Moderna (Spikevax), Mrna-lnp, Zackery Protein, Pf Unknown Completed [facility] - External Covid-19 Vaccine Moderna (Spikevax), Mrna-lnp, Zackery Protein, Pf Unknown Completed [facility] - External Covid-19 Vaccine Moderna (Spikevax), Mrna-lnp, Zackery Protein, Pf Unknown Completed [facility] - External Covid-19 Vaccine Moderna (Spikevax), Mrna-lnp, Zackery Protein, Pf Unknown Completed [facility] - External Covid-19 Vaccine Moderna (Spikevax), Mrna-lnp, Zackery Protein, Pf Unknown Completed [facility] - External Covid-19 Vaccine Moderna (Spikevax), Mrna-lnp, Zackery Protein, Pf Unknown Completed [facility] - External Vital Signs Vital Name Observation Time Observation Value Comments S ource Body temperature 2024-06-07 08:35:48 36.89 Latanya [facility] Systolic blood pressure 2024-06-07 08:00:00 129 mm[Hg] [facility] Diastolic blood pressure 2024-06-07 08:00:00 108 mm[Hg] [facility] Heart rate 2024-06-07 08:00:00 69 /min [facility] Respiratory rate 2024-06-07 08:00:00 24 /min [facility] Oxygen saturation in Arterial blood by Pulse oximetry 2024-06-07 08:00:00 97 /min [facility] Body height 2024-06-07 04:02:00 157.5 cm [facility] Body weight 2024-06-07 04:02:00 105.688 kg [facility] BMI 2024-06-07 04:02:00 42.62 kg/m2 [facility] Systolic blood pressure 2024-05-19 19:32:00 130 mm[Hg] [facility] Diastolic blood pressure 2024-05-19 19:32:00 74 mm[Hg] [facility] Heart rate 2024-05-19 19:32:00 84 /min [facility] [facility] Respiratory rate 2024-05-19 19:32:00 18 /min [facility] Oxygen saturation in Arterial blood by Pulse oximetry 2024-05-19 19:32:00 99 /min [facility] Body temperature 2024-05-19 17:44:00 36.83 Latanya [facility] Body height 2024-05-19 17:44:00 157.5 cm [facility] Body weight 2024-05-19 17:44:00 108.863 kg [facility] BMI 2024-05-19 17:44:00 43.90 kg/m2 [facility] Systolic blood pressure 2024-05-18 16:21:00 126 mm[Hg] Kellee Buckley - External Diastolic blood pressure 2024-05-18 16:21:00 78 mm[Hg] Kellee Buckley - External Heart rate 2024-05-18 16:21:00 95 /min Kellee Buckley - External Body temperature 2024-05-18 16:21:00 35.94 Latanya Kellee Buckley - External Respiratory rate 2024-05-18 16:21:00 15 /min Kellee Buckley - External Body height 2024-05-18 16:21:00 157.5 cm Kellee Buckley - External Body weight 2024-05-18 16:21:00 110.678 kg Kellee Buckley - External BMI 2024-05-18 16:21:00 44.63 kg/m2 Kellee Buckley - External Heart rate 2024-05-18 04:14:00 111 /min [facility] Body temperature 2024-05-18 04:14:00 37 Latanya [facility] Respiratory rate 2024-05-18 04:14:00 27 /min [facility] Oxygen saturation in Arterial blood by Pulse oximetry 2024-05-18 04:14:00 94 /min [facility] Systolic blood pressure 2024-05-18 04:00:00 141 mm[Hg] [facility] Diastolic blood pressure 2024-05-18 04:00:00 122 mm[Hg] [facility] Body height 2024-05-18 00:33:00 157.5 cm [facility] Body weight 2024-05-18 00:33:00 107.502 kg [facility] BMI 2024-05-18 00:33:00 43.35 kg/m2 [facility] Heart rate 2024-05-08 02:05:00 91 /min [facility] Respiratory rate 2024-05-08 02:05:00 22 /min [facility] Oxygen saturation in Arterial blood by Pulse oximetry 2024-05-08 02:05:00 95 /min [facility] Systolic blood pressure 2024-05-08 02:00:00 140 mm[Hg] [facility] Diastolic blood pressure 2024-05-08 02:00:00 86 mm[Hg] [facility] Body temperature 2024-05-07 23:46:00 36.78 Latanya [facility] Body height 2024-05-07 23:46:00 157.5 cm [facility] Body weight 2024-05-07 23:46:00 107.729 kg [facility] BMI 2024-05-07 23:46:00 43.44 kg/m2 [facility] Height 2024-04-10 16:28:00 157.832381 cm [facility] Weight 2024-04-10 16:28:00 104.548246 kg [facility] BMI (Body Mass Index) 2024-04-10 16:28:00 42.1 kg/m2 [facility] Systolic blood pressure 2024-04-09 01:30:00 134 mm[Hg] [facility] Diastolic blood pressure 2024-04-09 01:30:00 64 mm[Hg] [facility] Heart rate 2024-04-09 01:30:00 102 /min [facility] Body temperature 2024-04-09 01:30:00 36.61 Latanya [facility] Respiratory rate 2024-04-09 01:30:00 17 /min [facility] Oxygen saturation in Arterial blood by Pulse oximetry 2024-04-09 01:30:00 96 /min [facility] Body height 2024-04-08 22:31:00 157.5 cm [facility] Body weight 2024-04-08 22:31:00 104.327 kg [facility] BMI 2024-04-08 22:31:00 42.07 kg/m2 [facility] Body temperature 2023-12-13 14:10:00 36.72 Latanya Kellee Ariasybold - External Respiratory rate 2023-12-13 14:10:00 15 /min Kellee Buckley - External Body height 2023-12-13 14:10:00 157.5 cm Kellee Buckley - External Body weight 2023-12-13 14:10:00 105.688 kg Kellee Ariasybold - External BMI 2023-12-13 14:10:00 42.62 kg/m2 [...] Systolic blood pressure 2023-10-11 05:00:00 126 mm[Hg] [facility] Diastolic blood pressure 2023-10-11 05:00:00 87 mm[Hg] [facility] Heart rate 2023-10-11 05:00:00 94 /min [facility] Respiratory rate 2023-10-11 05:00:00 22 /min [facility] Oxygen saturation in Arterial blood by Pulse oximetry 2023-10-11 05:00:00 98 /min [facility] Body temperature 2023-10-11 02:28:00 37.22 Latanya [facility] Body height 2023-10-11 02:28:00 157.5 cm [facility] Body weight 2023-10-11 02:28:00 99.791 kg [facility] BMI 2023-10-11 02:28:00 40.24 kg/m2 [facility] Systolic blood pressure 2023-07-02 04:10:00 147 mm[Hg] [facility] Diastolic blood pressure 2023-07-02 04:10:00 89 mm[Hg] [facility] Heart rate 2023-07-02 04:10:00 73 /min [facility] Respiratory rate 2023-07-02 04:10:00 19 /min [facility] Oxygen saturation in Arterial blood by Pulse oximetry 2023-07-02 04:10:00 98 /min [facility] Body temperature 2023-07-02 01:47:00 36.78 Latanya [facility] Body height 2023-07-02 01:47:00 160 cm [facility] Body weight 2023-07-02 01:47:00 97.659 kg [facility] BMI 2023-07-02 01:47:00 38.14 kg/m2 [facility] Systolic blood pressure 2023-05-10 01:00:00 133 mm[Hg] [facility] Diastolic blood pressure 2023-05-10 01:00:00 81 mm[Hg] [facility] Heart rate 2023-05-10 01:00:00 64 /min [facility] Respiratory rate 2023-05-10 01:00:00 21 /min [facility] Oxygen saturation in Arterial blood by Pulse oximetry 2023-05-10 01:00:00 96 /min [facility] Body temperature 2023-05-09 22:43:00 36.67 Latanya [facility] Body height 2023-05-09 22:43:00 157.5 cm [facility] Body weight 2023-05-09 22:43:00 99.791 kg [facility] BMI 2023-05-09 22:43:00 40.24 kg/m2 [facility] Systolic blood pressure 2023-05-01 01:00:00 107 mm[Hg] [facility] Diastolic blood pressure 2023-05-01 01:00:00 80 mm[Hg] [facility] Heart rate 2023-05-01 01:00:00 80 /min [facility] Body temperature 2023-05-01 01:00:00 37.06 Latanya [facility] Respiratory rate 2023-05-01 01:00:00 16 /min [facility] Oxygen saturation in Arterial blood by Pulse oximetry 2023-05-01 01:00:00 98 /min [facility] Body height 2023-04-30 22:16:00 157.5 cm [facility] Body weight 2023-04-30 22:16:00 95.255 kg [facility] BMI 2023-04-30 22:16:00 38.41 kg/m2 [facility] Systolic blood pressure 2023-04-17 02:00:00 147 mm[Hg] [facility] Diastolic blood pressure 2023-04-17 02:00:00 83 mm[Hg] [facility] Heart rate 2023-04-17 02:00:00 90 /min [facility] Respiratory rate 2023-04-17 02:00:00 18 /min [facility] Oxygen saturation in Arterial blood by Pulse oximetry 2023-04-17 02:00:00 96 /min [facility] Body temperature 2023-04-17 01:33:00 36.78 Latanya [facility] Body height 2023-04-17 01:33:00 157.5 cm [facility] Body weight 2023-04-17 01:33:00 99.791 kg [facility] BMI 2023-04-17 01:33:00 40.24 kg/m2 [facility] Systolic blood pressure 2023-04-09 01:04:48 135 mm[Hg] [facility] Diastolic blood pressure 2023-04-09 01:04:48 84 mm[Hg] [facility] Heart rate 2023-04-09 01:04:48 67 /min [facility] Respiratory rate 2023-04-09 01:04:48 16 /min [facility] Oxygen saturation in Arterial blood by Pulse oximetry 2023-04-09 01:04:48 99 /min [facility] Body temperature 2023-04-08 22:16:00 36.67 Latanya [facility] Body height 2023-04-08 22:16:00 157.5 cm [facility] Body weight 2023-04-08 22:16:00 99.791 kg [facility] BMI 2023-04-08 22:16:00 40.24 kg/m2 [facility] Systolic blood pressure 2023-03-10 05:00:00 156 mm[Hg] [facility] Diastolic blood pressure 2023-03-10 05:00:00 94 mm[Hg] [facility] Heart rate 2023-03-10 05:00:00 75 /min [facility] Respiratory rate 2023-03-10 05:00:00 21 /min [facility] Oxygen saturation in Arterial blood by Pulse oximetry 2023-03-10 05:00:00 97 /min [facility] Body temperature 2023-03-10 01:20:00 36.72 Latanya [facility] Body height 2023-03-10 01:20:00 157.5 cm [facility] Body weight 2023-03-10 01:20:00 100.381 kg [facility] BMI 2023-03-10 01:20:00 40.48 kg/m2 [facility] Systolic blood pressure 2023-03-02 06:00:00 126 mm[Hg] [facility] Diastolic blood pressure 2023-03-02 06:00:00 79 mm[Hg] [facility] Heart rate 2023-03-02 06:00:00 69 /min [facility] Respiratory rate 2023-03-02 06:00:00 23 /min [facility] Oxygen saturation in Arterial blood by Pulse oximetry 2023-03-02 06:00:00 94 /min [facility] Body temperature 2023-03-02 00:34:00 37.28 Latanya [facility] Body height 2023-03-02 00:34:00 157.5 cm [facility] Body weight 2023-03-02 00:34:00 99.791 kg [facility] BMI 2023-03-02 00:34:00 40.24 kg/m2 [facility] Systolic blood pressure 2023-02-18 06:46:00 126 mm[Hg] [facility] Diastolic blood pressure 2023-02-18 06:46:00 77 mm[Hg] [facility] Heart rate 2023-02-18 06:46:00 79 /min [facility] Respiratory rate 2023-02-18 06:46:00 16 /min [facility] Oxygen saturation in Arterial blood by Pulse oximetry 2023-02-18 06:46:00 95 /min [facility] Body temperature 2023-02-18 03:55:00 36.72 Latanya [facility] Body height 2023-02-18 03:55:00 157.5 cm [facility] Body weight 2023-02-18 03:55:00 102.331 kg [facility] BMI 2023-02-18 03:55:00 41.26 kg/m2 [facility] Systolic blood pressure 2023-02-17 16:20:00 113 mm[Hg] [facility] Diastolic blood pressure 2023-02-17 16:20:00 65 mm[Hg] [facility] Heart rate 2023-02-17 16:20:00 65 /min [facility] Body temperature 2023-02-17 16:20:00 36.83 Latanya [facility] Respiratory rate 2023-02-17 16:20:00 16 /min [facility] Oxygen saturation in Arterial blood by Pulse oximetry 2023-02-17 16:20:00 97 /min [facility] Body weight 2023-02-17 08:50:00 99.973 kg [facility] BMI 2023-02-17 08:50:00 40.31 kg/m2 [facility] Body height 2023-02-16 01:19:00 157.5 cm [facility] Systolic blood pressure 2022-01-10 01:24:00 120 mm[Hg] [facility] Diastolic blood pressure 2022-01-10 01:24:00 76 mm[Hg] [facility] Heart rate 2022-01-10 01:24:00 73 /min [facility] Respiratory rate 2022-01-10 01:24:00 16 /min [facility] Oxygen saturation in Arterial blood by Pulse oximetry 2022-01-10 01:24:00 96 /min [facility] Body weight 2022-01-09 21:39:00 104.327 kg [facility] BMI 2022-01-09 21:39:00 42.07 kg/m2 [facility] Systolic blood pressure 2021-12-14 07:22:00 121 mm[Hg] [facility] Diastolic blood pressure 2021-12-14 07:22:00 86 mm[Hg] [facility] Heart rate 2021-12-14 07:22:00 80 /min [facility] Respiratory rate 2021-12-14 07:22:00 17 /min [facility] Oxygen saturation in Arterial blood by Pulse oximetry 2021-12-14 07:22:00 96 /min [facility] Body temperature 2021-12-14 03:06:00 36.72 Latanya [facility] Body height 2021-12-14 03:06:00 157.5 cm [facility] Body weight 2021-12-14 03:06:00 95.255 kg [facility] BMI 2021-12-14 03:06:00 38.41 kg/m2 [facility] Systolic blood pressure 2021-11-12 04:15:00 112 mm[Hg] [facility] Diastolic blood pressure 2021-11-12 04:15:00 75 mm[Hg] [facility] Heart rate 2021-11-12 04:15:00 92 /min [facility] Body temperature 2021-11-12 04:15:00 36.44 Latanya [facility] Respiratory rate 2021-11-12 04:15:00 18 /min [facility] Oxygen saturation in Arterial blood by Pulse oximetry 2021-11-12 04:15:00 98 /min [facility] Body height 2021-11-12 00:41:00 157.5 cm [facility] Body weight 2021-11-12 00:41:00 95.255 kg [facility] BMI 2021-11-12 00:41:00 38.41 kg/m2 [facility] Systolic blood pressure 2021-09-12 01:31:00 142 mm[Hg] [facility] Diastolic blood pressure 2021-09-12 01:31:00 80 mm[Hg] [facility] Heart rate 2021-09-12 01:31:00 78 /min [facility] Body temperature 2021-09-12 01:31:00 36.72 Latanya [facility] Respiratory rate 2021-09-12 01:31:00 18 /min [facility] Body height 2021-09-12 01:31:00 157.5 cm [facility] Body weight 2021-09-12 01:31:00 99.791 kg [facility] BMI 2021-09-12 01:31:00 40.24 kg/m2 [facility] Oxygen saturation in Arterial blood by Pulse oximetry 2021-09-12 01:31:00 97 /min [facility] Systolic blood pressure 2021-08-15 08:20:00 120 mm[Hg] [facility] Diastolic blood pressure 2021-08-15 08:20:00 74 mm[Hg] [facility] Heart rate 2021-08-15 08:20:00 69 /min [facility] Respiratory rate 2021-08-15 08:20:00 20 /min [facility] Oxygen saturation in Arterial blood by Pulse oximetry 2021-08-15 08:20:00 96 /min [facility] Body temperature 2021-08-15 05:34:00 36.22 Latanya [facility] Body height 2021-08-15 05:34:00 157.5 cm [facility] Body weight 2021-08-15 05:34:00 99.791 kg [facility] BMI 2021-08-15 05:34:00 40.24 kg/m2 [facility] Systolic blood pressure 2021-05-28 10:00:00 122 mm[Hg] [facility] Diastolic blood pressure 2021-05-28 10:00:00 78 mm[Hg] [facility] Heart rate 2021-05-28 10:00:00 75 /min [facility] Respiratory rate 2021-05-28 10:00:00 20 /min [facility] Oxygen saturation in Arterial blood by Pulse oximetry 2021-05-28 10:00:00 99 /min [facility] Body temperature 2021-05-28 05:21:00 36.11 Latanya [facility] Body height 2021-05-28 05:21:00 157.5 cm [facility] Body weight 2021-05-28 05:21:00 99.791 kg [facility] BMI 2021-05-28 05:21:00 40.24 kg/m2 [facility] Systolic blood pressure 2021-04-08 21:55:00 110 mm[Hg] [facility] Diastolic blood pressure 2021-04-08 21:55:00 80 mm[Hg] [facility] Heart rate 2021-04-08 21:55:00 70 /min [facility] Body temperature 2021-04-08 21:55:00 36.28 Latanya [facility] Respiratory rate 2021-04-08 21:55:00 16 /min [facility] Oxygen saturation in Arterial blood by Pulse oximetry 2021-04-08 21:55:00 94 /min [facility] Body height 2021-04-08 03:00:00 157.5 cm [facility] Body weight 2021-04-08 03:00:00 105.688 kg [facility] BMI 2021-04-08 03:00:00 42.62 kg/m2 [facility] Systolic blood pressure 2021-01-12 09:00:00 147 mm[Hg] [facility] Diastolic blood pressure 2021-01-12 09:00:00 71 mm[Hg] [facility] Heart rate 2021-01-12 09:00:00 103 /min [facility] Respiratory rate 2021-01-12 09:00:00 18 /min [facility] Oxygen saturation in Arterial blood by Pulse oximetry 2021-01-12 09:00:00 97 /min [facility] Body temperature 2021-01-12 07:48:00 37.06 Latanya [facility] Body height 2021-01-12 07:48:00 157.5 cm [facility] Body weight 2021-01-12 07:48:00 102.513 kg [facility] BMI 2021-01-12 07:48:00 41.34 kg/m2 [facility] Systolic blood pressure 2020-12-11 01:30:00 136 mm[Hg] [facility] Diastolic blood pressure 2020-12-11 01:30:00 88 mm[Hg] [facility] Heart rate 2020-12-11 01:30:00 99 /min [facility] Respiratory rate 2020-12-11 01:30:00 28 /min [facility] Oxygen saturation in Arterial blood by Pulse oximetry 2020-12-11 01:30:00 97 /min [facility] Body temperature 2020-12-10 22:11:00 36.78 Latanya [facility] Body weight 2020-12-10 22:11:00 99.791 kg [facility] BMI 2020-12-10 22:11:00 40.24 kg/m2 [facility] Systolic blood pressure 2020-12-04 21:30:00 126 mm[Hg] [facility] Diastolic blood pressure 2020-12-04 21:30:00 79 mm[Hg] [facility] Heart rate 2020-12-04 21:30:00 91 /min [facility] Respiratory rate 2020-12-04 21:30:00 20 /min [facility] Oxygen saturation in Arterial blood by Pulse oximetry 2020-12-04 21:30:00 96 /min [facility] Body temperature 2020-12-04 19:49:00 37.06 Latanya [facility] Body height 2020-12-04 19:49:00 157.5 cm [facility] Body weight 2020-12-04 19:49:00 99.791 kg [facility] BMI 2020-12-04 19:49:00 40.24 kg/m2 [facility] Systolic blood pressure 2020-11-04 01:42:00 142 mm[Hg] [facility] Diastolic blood pressure 2020-11-04 01:42:00 100 mm[Hg] [facility] Heart rate 2020-11-04 01:42:00 109 /min [facility] Body temperature 2020-11-04 01:42:00 36.78 Latanya [facility] Respiratory rate 2020-11-04 01:42:00 20 /min [facility] Body weight 2020-11-04 01:42:00 99.791 kg [facility] BMI 2020-11-04 01:42:00 40.24 kg/m2 [facility] Oxygen saturation in Arterial blood by Pulse oximetry 2020-11-04 01:42:00 98 /min [facility] Systolic blood pressure 2020-09-17 15:52:00 138 mm[Hg] [facility] Diastolic blood pressure 2020-09-17 15:52:00 94 mm[Hg] [facility] Heart rate 2020-09-17 15:52:00 98 /min [facility] Body temperature 2020-09-17 15:52:00 36.94 Latanya [facility] Respiratory rate 2020-09-17 15:52:00 20 /min [facility] Body weight 2020-09-17 15:52:00 95.255 kg [facility] BMI 2020-09-17 15:52:00 38.41 kg/m2 [facility] Oxygen saturation in Arterial blood by Pulse oximetry 2020-09-17 15:52:00 97 /min [facility] Systolic blood pressure 2020-09-17 15:52:00 138 mm[Hg] [facility] Diastolic blood pressure 2020-09-17 15:52:00 94 mm[Hg] [facility] Heart rate 2020-09-17 15:52:00 98 /min [facility] Body temperature 2020-09-17 15:52:00 36.94 Latanya [facility] Respiratory rate 2020-09-17 15:52:00 20 /min [facility] Body weight 2020-09-17 15:52:00 95.255 kg [facility] BMI 2020-09-17 15:52:00 38.41 kg/m2 [facility] Oxygen saturation in Arterial blood by Pulse oximetry 2020-09-17 15:52:00 97 /min [facility] Systolic blood pressure 2020-09-07 06:35:00 123 mm[Hg] [facility] Diastolic blood pressure 2020-09-07 06:35:00 56 mm[Hg] [facility] Heart rate 2020-09-07 06:35:00 97 /min [facility] Body temperature 2020-09-07 06:35:00 36.28 Latanya [facility] Respiratory rate 2020-09-07 06:35:00 18 /min [facility] Body weight 2020-09-07 06:35:00 99.791 kg [facility] BMI 2020-09-07 06:35:00 40.24 kg/m2 [facility] Oxygen saturation in Arterial blood by Pulse oximetry 2020-09-07 06:35:00 98 /min [facility] Systolic blood pressure 2020-09-07 06:35:00 123 mm[Hg] [facility] Diastolic blood pressure 2020-09-07 06:35:00 56 mm[Hg] [facility] Heart rate 2020-09-07 06:35:00 97 /min [facility] Body temperature 2020-09-07 06:35:00 36.28 Latanya [facility] Respiratory rate 2020-09-07 06:35:00 18 /min [facility] Body weight 2020-09-07 06:35:00 99.791 kg [facility] BMI 2020-09-07 06:35:00 40.24 kg/m2 [facility] Oxygen saturation in Arterial blood by Pulse oximetry 2020-09-07 06:35:00 98 /min [facility] Systolic blood pressure 2020-08-28 09:00:00 132 mm[Hg] [facility] [facility] Diastolic blood pressure 2020-08-28 09:00:00 87 mm[Hg] [facility] Heart rate 2020-08-28 09:00:00 90 /min [facility] Respiratory rate 2020-08-28 09:00:00 20 /min [facility] Oxygen saturation in Arterial blood by Pulse oximetry 2020-08-28 09:00:00 97 /min [facility] Body temperature 2020-08-28 07:59:00 36.72 Latanya [facility] Body height 2020-08-28 07:59:00 157.5 cm [facility] Body weight 2020-08-28 07:59:00 99.791 kg [facility] BMI 2020-08-28 07:59:00 40.24 kg/m2 [facility] Systolic blood pressure 2020-08-28 09:00:00 132 mm[Hg] [facility] Diastolic blood pressure 2020-08-28 09:00:00 87 mm[Hg] [facility] Heart rate 2020-08-28 09:00:00 90 /min [facility] Respiratory rate 2020-08-28 09:00:00 20 /min [facility] Oxygen saturation in Arterial blood by Pulse oximetry 2020-08-28 09:00:00 97 /min [facility] Body temperature 2020-08-28 07:59:00 36.72 Latanya [facility] Body height 2020-08-28 07:59:00 157.5 cm [facility] Body weight 2020-08-28 07:59:00 99.791 kg [facility] BMI 2020-08-28 07:59:00 40.24 kg/m2 [facility] Systolic blood pressure 2020-08-14 19:40:00 135 mm[Hg] [facility] Diastolic blood pressure 2020-08-14 19:40:00 100 mm[Hg] [facility] Heart rate 2020-08-14 19:40:00 68 /min [facility] Body temperature 2020-08-14 19:40:00 37.11 Latanya [facility] Respiratory rate 2020-08-14 19:40:00 19 /min [facility] Oxygen saturation in Arterial blood by Pulse oximetry 2020-08-14 19:40:00 99 /min [facility] Body height 2020-08-14 17:41:00 157.5 cm [facility] Body weight 2020-08-14 17:41:00 99.791 kg [facility] BMI 2020-08-14 17:41:00 40.24 kg/m2 [facility] Systolic blood pressure 2020-08-14 19:40:00 135 mm[Hg] [facility] Diastolic blood pressure 2020-08-14 19:40:00 100 mm[Hg] [facility] Heart rate 2020-08-14 19:40:00 68 /min [facility] Body temperature 2020-08-14 19:40:00 37.11 Latanya [facility] Respiratory rate 2020-08-14 19:40:00 19 /min [facility] Oxygen saturation in Arterial blood by Pulse oximetry 2020-08-14 19:40:00 99 /min [facility] Body height 2020-08-14 17:41:00 157.5 cm [facility] Body weight 2020-08-14 17:41:00 99.791 kg [facility] BMI 2020-08-14 17:41:00 40.24 kg/m2 [facility] Systolic blood pressure 2020-08-11 04:00:00 106 mm[Hg] [facility] Diastolic blood pressure 2020-08-11 04:00:00 92 mm[Hg] [facility] Heart rate 2020-08-11 04:00:00 90 /min [facility] Respiratory rate 2020-08-11 04:00:00 16 /min [facility] Oxygen saturation in Arterial blood by Pulse oximetry 2020-08-11 04:00:00 99 /min [facility] Body temperature 2020-08-11 03:12:56 37.72 Latanya [facility] Body height 2020-08-11 00:19:00 157.5 cm [facility] Body weight 2020-08-11 00:19:00 99.791 kg [facility] BMI 2020-08-11 00:19:00 40.24 kg/m2 [facility] Systolic blood pressure 2020-08-11 04:00:00 106 mm[Hg] [facility] Diastolic blood pressure 2020-08-11 04:00:00 92 mm[Hg] [facility] Heart rate 2020-08-11 04:00:00 90 /min [facility] Respiratory rate 2020-08-11 04:00:00 16 /min [facility] Oxygen saturation in Arterial blood by Pulse oximetry 2020-08-11 04:00:00 99 /min [facility] Body temperature 2020-08-11 03:12:56 37.72 Latanya [facility] Body height 2020-08-11 00:19:00 157.5 cm [facility] Body weight 2020-08-11 00:19:00 99.791 kg [facility] BMI 2020-08-11 00:19:00 40.24 kg/m2 [facility] Systolic blood pressure 2020-08-07 13:16:00 100 mm[Hg] [facility] Diastolic blood pressure 2020-08-07 13:16:00 69 mm[Hg] [facility] Heart rate 2020-08-07 13:16:00 99 /min [facility] Body temperature 2020-08-07 13:16:00 36.67 Latanya [facility] Respiratory rate 2020-08-07 13:16:00 18 /min [facility] Body weight 2020-08-07 13:16:00 95.255 kg [facility] BMI 2020-08-07 13:16:00 38.41 kg/m2 [facility] Oxygen saturation in Arterial blood by Pulse oximetry 2020-08-07 13:16:00 99 /min [facility] Systolic blood pressure 2020-08-07 13:16:00 100 mm[Hg] [facility] Diastolic blood pressure 2020-08-07 13:16:00 69 mm[Hg] [facility] Heart rate 2020-08-07 13:16:00 99 /min [facility] Body temperature 2020-08-07 13:16:00 36.67 Latanya [facility] Respiratory rate 2020-08-07 13:16:00 18 /min [facility] Body weight 2020-08-07 13:16:00 95.255 kg [facility] BMI 2020-08-07 13:16:00 38.41 kg/m2 [facility] Oxygen saturation in Arterial blood by Pulse oximetry 2020-08-07 13:16:00 99 /min [facility] Systolic blood pressure 2020-07-01 02:00:00 136 mm[Hg] [facility] Diastolic blood pressure 2020-07-01 02:00:00 85 mm[Hg] [facility] Heart rate 2020-07-01 02:00:00 73 /min [facility] Respiratory rate 2020-07-01 02:00:00 20 /min [facility] Oxygen saturation in Arterial blood by Pulse oximetry 2020-07-01 02:00:00 97 /min [facility] Body temperature 2020-06-30 23:36:00 36.56 Latanya [facility] Body height 2020-06-30 23:36:00 157.5 cm [facility] Body weight 2020-06-30 23:36:00 95.255 kg [facility] BMI 2020-06-30 23:36:00 38.41 kg/m2 [facility] Systolic blood pressure 2020-07-01 02:00:00 136 mm[Hg] [facility] Diastolic blood pressure 2020-07-01 02:00:00 85 mm[Hg] [facility] Heart rate 2020-07-01 02:00:00 73 /min [facility] Respiratory rate 2020-07-01 02:00:00 20 /min [facility] Oxygen saturation in Arterial blood by Pulse oximetry 2020-07-01 02:00:00 97 /min [facility] Body temperature 2020-06-30 23:36:00 36.56 Latanya [facility] Body height 2020-06-30 23:36:00 157.5 cm [facility] Body weight 2020-06-30 23:36:00 95.255 kg [facility] BMI 2020-06-30 23:36:00 38.41 kg/m2 [facility] Systolic blood pressure 2020-06-28 21:57:00 151 mm[Hg] [facility] Diastolic blood pressure 2020-06-28 21:57:00 88 mm[Hg] [facility] Heart rate 2020-06-28 21:57:00 94 /min [facility] Body temperature 2020-06-28 21:57:00 37.78 Latanya [facility] Respiratory rate 2020-06-28 21:57:00 16 /min [facility] Body height 2020-06-28 21:57:00 157.5 cm [facility] Body weight 2020-06-28 21:57:00 95.255 kg [facility] BMI 2020-06-28 21:57:00 38.41 kg/m2 [facility] Oxygen saturation in Arterial blood by Pulse oximetry 2020-06-28 21:57:00 96 /min [facility] Systolic blood pressure 2020-06-28 21:57:00 151 mm[Hg] [facility] Diastolic blood pressure 2020-06-28 21:57:00 88 mm[Hg] [facility] Heart rate 2020-06-28 21:57:00 94 /min [facility] Body temperature 2020-06-28 21:57:00 37.78 Latanya [facility] Respiratory rate 2020-06-28 21:57:00 16 /min [facility] Body height 2020-06-28 21:57:00 157.5 cm [facility] Body weight 2020-06-28 21:57:00 95.255 kg [facility] BMI 2020-06-28 21:57:00 38.41 kg/m2 [facility] Oxygen saturation in Arterial blood by Pulse oximetry 2020-06-28 21:57:00 96 /min [facility] Systolic blood pressure 2020-06-13 03:40:00 122 mm[Hg] [facility] Diastolic blood pressure 2020-06-13 03:40:00 78 mm[Hg] [facility] Heart rate 2020-06-13 03:40:00 90 /min [facility] Respiratory rate 2020-06-13 03:40:00 18 /min [facility] Oxygen saturation in Arterial blood by Pulse oximetry 2020-06-13 03:40:00 94 /min [facility] Body temperature 2020-06-12 23:39:00 37.22 Latanya [facility] Body weight 2020-06-12 23:39:00 97.07 kg [facility] BMI 2020-06-12 23:39:00 39.14 kg/m2 [facility] Systolic blood pressure 2020-06-13 03:40:00 122 mm[Hg] [facility] Diastolic blood pressure 2020-06-13 03:40:00 78 mm[Hg] [facility] Heart rate 2020-06-13 03:40:00 90 /min [facility] Respiratory rate 2020-06-13 03:40:00 18 /min [facility] Oxygen saturation in Arterial blood by Pulse oximetry 2020-06-13 03:40:00 94 /min [facility] Body temperature 2020-06-12 23:39:00 37.22 Latanya [facility] Body weight 2020-06-12 23:39:00 97.07 kg [facility] BMI 2020-06-12 23:39:00 39.14 kg/m2 [facility] Heart rate 2020-05-17 00:40:00 82 /min [facility] Respiratory rate 2020-05-17 00:40:00 18 /min [facility] Oxygen saturation in Arterial blood by Pulse oximetry 2020-05-17 00:40:00 95 /min [facility] Systolic blood pressure 2020-05-17 00:00:00 137 mm[Hg] [facility] Diastolic blood pressure 2020-05-17 00:00:00 93 mm[Hg] [facility] Body temperature 2020-05-16 23:17:00 37.61 Latanya [facility] Body weight 2020-05-16 23:17:00 97.07 kg [facility] BMI 2020-05-16 23:17:00 39.14 kg/m2 [facility] Heart rate 2020-05-17 00:40:00 82 /min [facility] Respiratory rate 2020-05-17 00:40:00 18 /min [facility] Oxygen saturation in Arterial blood by Pulse oximetry 2020-05-17 00:40:00 95 /min [facility] Systolic blood pressure 2020-05-17 00:00:00 137 mm[Hg] [facility] Diastolic blood pressure 2020-05-17 00:00:00 93 mm[Hg] [facility] Body temperature 2020-05-16 23:17:00 37.61 Latanya [facility] Body weight 2020-05-16 23:17:00 97.07 kg [facility] BMI 2020-05-16 23:17:00 39.14 kg/m2 [facility] Systolic blood pressure 2020-05-15 08:50:00 131 mm[Hg] [facility] Diastolic blood pressure 2020-05-15 08:50:00 80 mm[Hg] [facility] Heart rate 2020-05-15 08:50:00 70 /min [facility] Respiratory rate 2020-05-15 08:50:00 18 /min [facility] Oxygen saturation in Arterial blood by Pulse oximetry 2020-05-15 08:50:00 97 /min [facility] Body temperature 2020-05-15 05:29:00 36.44 Latanya [facility] Body height 2020-05-15 05:29:00 157.5 cm [facility] Body weight 2020-05-15 05:29:00 97.07 kg Simultaneous filing. User may not have seen previous data. [facility] BMI 2020-05-15 05:29:00 39.14 kg/m2 [facility] Systolic blood pressure 2020-05-15 08:50:00 131 mm[Hg] [facility] Diastolic blood pressure 2020-05-15 08:50:00 80 mm[Hg] [facility] Heart rate 2020-05-15 08:50:00 70 /min [facility] Respiratory rate 2020-05-15 08:50:00 18 /min [facility] Oxygen saturation in Arterial blood by Pulse oximetry 2020-05-15 08:50:00 97 /min [facility] Body temperature 2020-05-15 05:29:00 36.44 Latanya [facility] Body height 2020-05-15 05:29:00 157.5 cm [facility] Body weight 2020-05-15 05:29:00 97.07 kg Simultaneous filing. User may not have seen previous data. [facility] BMI 2020-05-15 05:29:00 39.14 kg/m2 [facility] Procedures Procedure Date / Time Performed Performing Clinician Source TROPONIN I 2024-06-07 07:19:00 Olivia Garcia [facility] XR CHEST 1 VW 2024-06-07 05:38:37 Olivia Garcia [facility] POCT TEST 2024-06-07 05:19:00 Olivia Garcia [facility] URINE DRUG (IMMUNOASSAY) - COMPREHENSIVE DRUG SCREEN 2024-06-07 05:18:00 Olivia Garcia [facility] TROPONIN I 2024-06-07 04:10:00 Olivia Garcia [facility] COMP. METABOLIC PANEL ([id number]) 2024-06-07 04:10:00 Olivia Garcia [facility] CBC WITH DIFF 2024-06-07 04:10:00 Olivia Garcia [facility] CT HEAD WO CONTRAST 2024-05-19 18:22:43 Annalise Wright [facility] XR ELBOW <3 VW RIGHT 2024-05-18 02:32:12 Alesha Barrera [facility] XR FOREARM 2 VW RIGHT 2024-05-18 02:32:12 Alesha Moralez [facility] XR HAND 3+ VW RIGHT 2024-05-18 02:32:12 Alesha Casanova [facility] CT CERVICAL SPINE WO CONTRAST 2024-05-18 02:11:45 Alesha Roy [facility] CT MAXILLOFACIAL/MANDIBLE WO CONTRAST 2024-05-18 02:11:45 Alesha Roy [facility] POCT TEST 2024-05-08 02:00:00 Saleem Edward [facility] LIPASE 2024-05-08 00:31:00 Saleem Edward [facility] MAGNESIUM 2024-05-08 00:31:00 Saleem Edward [facility] TROPONIN I 2024-05-08 00:31:00 Saleem Edward [facility] COMP. METABOLIC PANEL ([id number]) 2024-05-08 00:31:00 Saleem Edward [facility] CBC WITH DIFF 2024-05-08 00:31:00 Saleem Edward [facility] URINALYSIS 2024-05-08 00:31:00 Saleem Edward [facility] CT ABDOMEN PELVIS WO CONTRAST 2024-04-08 23:45:15 Sophie Rojoherine [facility] POCT TEST 2024-04-08 23:01:00 Judy Rojo [facility] LIPASE 2024-04-08 22:47:00 Florentino [facility] COMP. METABOLIC PANEL ([id number]) 2024-04-08 22:47:00 Leigh Rojo [facility] CBC WITH DIFF 2024-04-08 22:47:00 Sophie Rojoherine [facility] URINALYSIS 2024-04-08 22:47:00 Florentino [facility] CT ABDOMEN PELVIS W CONTRAST 2023-10-11 04:08:24 Olivia Garcia [facility] POCT TEST 2023-10-11 03:40:00 Olivia Garcia [facility] LIPASE 2023-10-11 03:25[facility] ([id number]) 2023-10-11 03:25:00 Olivia Garcia [facility] CBC WITH DIFF 2023-10-11 03:25:00 Olivia Garcia [facility] URINALYSIS 2023-10-11 03:25:00 Olivia Garcia [facility] XR KUB 2023-07-02 03:34:07 [facility] POCT TEST 2023-07-02 02:30:00 Alberta Richards [facility] LIPASE 2023-07-02 02:05:00 [facility] COMP. METABOLIC PANEL ([id number]) 2023-07-02 02:05:00 Roberto Richards [facility] CBC WITH DIFF 2023-07-02 02:05:00 Roberto Richards [facility] URINALYSIS 2023-07-02 02:05:00 Roberto Richards [facility] URINE DRUG (IMMUNOASSAY) - COMPREHENSIVE DRUG SCREEN W/O REFLEX 2023-07-02 02:05:00 Roberto Richards [facility] CONSENT/REFUSAL FOR DIAGNOSIS AND TREATMENT 2023-07-02 01:43:05 Doctor Unassigned, [place] [facility] LIPASE 2023-05-09 22:47:00 Narayan Narvaez [facility] COMP. METABOLIC PANEL ([id number]) 2023-05-09 22:47:00 Narayan Narvaez [facility] CBC WITH DIFF 2023-05-09 22:47:00 Narayan Narvaez [facility] CONSENT/REFUSAL FOR DIAGNOSIS AND TREATMENT 2023-05-09 22:32:48 Doctor Unassigned, [place] [facility] CT ABDOMEN PELVIS W CONTRAST 2023-04-30 23:47:56 Narayan Narvaez [facility] COMP. METABOLIC PANEL ([id number]) 2023-04-30 23:08:00 Narayan Narvaez [facility] CBC WITH DIFF 2023-04-30 23:08:00 Narayan Narvaez [facility] POCT TEST 2023-04-30 22:59:00 Jaquan Narvaez [facility] URINALYSIS 2023-04-30 22:57:00 [facility] CONSENT/REFUSAL FOR DIAGNOSIS AND TREATMENT 2023-04-30 22:14:38 Doctor Unassigned, [place] [facility] XR ABDOMEN ACUTE SERIES 2023-04-17 02:13:44 Do minal Richards [facility] POCT TEST 2023-04-17 02:11:00 Alberta Richards [facility] LIPASE 2023-04-17 02:04:00 Roberto Richards [facility] TROPONIN I 2023-04-17 02:04:00 Roberto Richards [facility] COMP. METABOLIC PANEL ([id number]) 2023-04-17 02:04:00 Roberto Richards [facility] CBC WITH DIFF 2023-04-17 02:04:00 Roberto Richards [facility] PROTHROMBIN TIME / INR 2023-04-17 02:04:00 Jalen Richards [facility] ACTIVATED PARTIAL THRMPLAS MARCIO 2023-04-17 02:04:00 Roberto Richards [facility] URINALYSIS 2023-04-17 02:04:00 Roberto Richards [facility] N-TERMINAL PRO-BNP 2023-04-17 02:04:00 Roberto Richards [facility] URINE DRUG (IMMUNOASSAY) - COMPREHENSIVE DRUG SCREEN W/O REFLEX 2023-04-17 02:04:00 Roberto Richards [facility] CONSENT/REFUSAL FOR DIAGNOSIS AND TREATMENT 2023-04-17 01:22:36 Doctor Unassigned, [place] [facility] URINALYSIS 2023-04-09 01:02:00 Saleem Edward [facility] LIPASE 2023-04-08 23:15:00 Saleem Edwarde [facility] MAGNESIUM 2023-04-08 23:15:00 Saleem Edwarde [facility] TROPONIN I 2023-04-08 23:15:00 Saleem Edward [facility] COMP. METABOLIC PANEL ([id number]) 2023-04-08 23:15:00 Saleem Edward [facility] CBC WITH DIFF 2023-04-08 23:15:00 Saleem Edward [facility] CONSENT/REFUSAL FOR DIAGNOSIS AND TREATMENT 2023-04-08 21:57:42 Doctor Unassigned, [place] [facility] CT ABDOMEN PELVIS W CONTRAST 2023-03-10 03:38:58 Roberto Richards [facility] POCT TEST 2023-03-10 02:51:00 Alberta Richards [facility] URINALYSIS 2023-03-10 01:49:00 Roberto Richards [facility] LIPASE 2023-03-10 01:46:00 Roberto Richards [facility] COMP. METABOLIC PANEL ([id number]) 2023-03-10 [facility]46[facility] 2023-03-10 01:46:00 Roberto Richards [facility] CONSENT/REFUSAL FOR DIAGNOSIS AND TREATMENT 2023-03-10 01:36:24 Doctor Unassigned, [place] [facility] CONSENT/REFUSAL FOR DIAGNOSIS AND TREATMENT 2023-03-10 01:14:40 Doctor Unassigned, [place] [facility] CT ABDOMEN PELVIS W CONTRAST 2023-03-02 05:16:35 Olivia Garcia [facility] POCT TEST 2023-03-02 03:26:00 Olivia Garcia [facility] LIPASE 2023-03-02 03:23:00 Olivia Garcia [facility] COMP. METABOLIC PANEL ([id number]) 2023-03-02 03:23:00 Olivia Garcia [facility] CBC WITH DIFF 2023-03-02 03:23:00 Olivia Garcia [facility] URINALYSIS 2023-03-02 03:23:00 Olivia Garcia [facility] CONSENT/REFUSAL FOR DIAGNOSIS AND TREATMENT 2023-03-02 00:22:44 Doctor Unassigned, [place] [facility] CONSENT/REFUSAL FOR DIAGNOSIS AND TREATMENT 2023-02-18 03:44:46 Doctor Unassigned, [place] [facility] LIPASE 2023-02-17 09:28:00 [facility] ([id number][facility] (ALB,T.PRO,BILI T,BU/BC,ALT,AST,ALK PHOS) 2023-02-17 09:28:00 [facility] (NA, K, CL, CO2, GLUCOSE, BUN, CREATININE, CA) 2023-02-17 09:28:00 Jesús Montero [facility] CBC WITH DIFF 2023-02-17 09:28:00 Jesús Montero [facility] LIPASE 2023-02-16 18:24:00 [facility] ([id number]) (ALB,T.PRO,BILI T,BU/BC,ALT,AST,ALK PHOS) 2023-02-16 18:24:00 Kylah [facility] BASIC METABOLIC PANEL (NA, K, CL, CO2, GLUCOSE, BUN, CREATININE, CA) 2023-02-16 18:24:00 Kylah Jesús [facility] CBC WITH DIFF 2023-02-16 18:23:00 Jesús Montero [facility] CT ABDOMEN PELVIS W CONTRAST 2023-02-15 23:29:00 Leeanne Wise [facility] LIPASE 2023-02-15 21:45:00 Leeanne Wise [facility] COMP. METABOLIC PANEL ([id number]) 2023-02-15 21:45:00 Leeanne Wise [facility] CBC WITH DIFF 2023-02-15 21:45:00 Leeanne Wise [facility] D-DIMER 2023-02-15 19:55:00 Leeanne Wise [facility] URINALYSIS 2023-02-15 19:50:00 Leeanne Wise [facility] RAPID INFLUENZA A/B 2023-02-15 19:50:00 Leeanne Wise [facility] COVID-19 (ID NOW RAPID TESTING) 2023-02-15 19:50:00 Leeanne Wise [facility] XR CHEST 1 VW 2023-02-15 19:38:00 Leeanne Wise [facility] [facility] ASSIGNMENT OF BENEFITS 2023-02-15 19:26:58 Docto r Unassigned, [place] [facility] HB ECG ROUTINE & RHYTHM STRIP 2023-02-15 19:07:40 Leeanne Wise [facility] NOTICE OF PRIVACY PRACTICES 2023-02-15 18:24:07 Doctor Unassigned, [place] [facility] CONSENT/REFUSAL FOR DIAGNOSIS AND TREATMENT 2023-02-15 18:23:04 Doctor Unassigned, [place] [facility] TROPONIN I 2022-01-10 00:32:00 [facility] TROPONIN I 2022-01-09 22:17:00 eMlida Longoria [facility] BASIC METABOLIC PANEL (NA, K, CL, CO2, GLUCOSE, BUN, CREATININE, CA) 2022-01-09 22:17:00 Melida Longoria [facility] CBC WITH DIFF 2022-01-09 22:17:00 Melida Longoria [facility] N-TERMINAL PRO-BNP 2022-01-09 22:17:00 Melida Longoria [facility] XR CHEST 1 VW 2022-01-09 22:11:00 Melida Longoria [facility] CONSENT/REFUSAL FOR DIAGNOSIS AND TREATMENT 2022-01-09 21:34:15 Doctor Unassigned, [place] [facility] TROPONIN I 2021-12-14 05:39:00 Wil Mcqueen [facility] XR CHEST 1 VW 2021-12-14 04:39:00 Wil Mcqueen [facility] POCT TEST 2021-12-14 04:20:00 Wil Mcqueen [facility] URINALYSIS 2021-12-14 03:57:00 Wil Mcqueen [facility] LIPASE 2021-12-14 03:43:00 Wil Mcqueen [facility] TROPONIN I 2021-12-14 03:43:00 Wil Mcqueen [facility] FREE T4 2021-12-14 03:43:00 Wil Mcqueen [facility] THYROID STIMULATING HORMONE 2021-12-14 03:43:00 Wil Mcqueen [facility] COMP. METABOLIC PANEL (99151) 2021-12-14 03:43:00 Wil Mcqueen [facility] CBC WITH DIFF 2021-12-14 03:43:00 Wil Mcqueen [facility] FREE T3 2021-12-14 03:43:00 Wil Mcqueen [facility] CONSENT/REFUSAL FOR DIAGNOSIS AND TREATMENT 2021-12-14 02:58:21 Doctor Unassigned, [place] [facility] TROPONIN I 2021-11-12 03:04:00 Dee Wang [facility] POCT TEST 2021-11-12 02:56:00 Tra Wang [facility] URINE DRUG (IMMUNOASSAY) - COMPREHENSIVE DRUG SCREEN 2021-11-12 02:30:00 Dee Wang [facility] URINALYSIS 2021-11-12 02:30:00 Dee Wang [facility] XR CHEST 2 VW 2021-11-12 01:45:03 Dee Wang [facility] LIPASE 2021-11-12 01:34:00 Dee Wang [facility] TROPONIN I 2021-11-12 01:34:00 Dee Wang [facility] COMP. METABOLIC PANEL ([id number]) 2021-11-12 01:34:00 Dee Wang [facility] CBC WITH DIFF 2021-11-12 01:34:00 Dee Wang [facility] N-TERMINAL PRO-BNP 2021-11-12 01:34:00 Mckinley Wang [facility] CONSENT/REFUSAL FOR DIAGNOSIS AND TREATMENT 2021-11-12 00:36:34 Doctor Unassigned, [place] [facility] CT ABDOMEN PELVIS W CONTRAST 2021-09-12 02:49:43 Dee Wang [facility] COVID-19 (ID NOW RAPID TESTING) 2021-09-12 02:23:00 Dee Wang [facility] POCT TEST 2021-09-12 02:21:00 Tra Wang [facility] POCT TEST 2021-09-12 01:45:00 Oilvia Garcia [facility] URINALYSIS 2021-09-12 01:43:00 Olivia Garcia [facility] LIPASE 2021-09-12 01:40:00 Olivia Garcia [facility] COMP. METABOLIC PANEL ([id number]) 2021-09-12 01:40:00 Olivia Garcia [facility] CBC WITH DIFF 2021-09-12 01:40:00 Olivia Garcia [facility] CONSENT/REFUSAL FOR DIAGNOSIS AND TREATMENT 2021-09-12 01:26:55 Doctor Unassigned, [place] [facility] XR LUMBAR SPINE 1 VW 2021-08-15 07:03:00 Angeles Garcia i [facility] URINALYSIS 2021-08-15 06:35:00 Olivia Garcia [facility] POCT TEST 2021-08-15 06:35:00 Olivia Garcia [facility] NOTICE OF PRIVACY PRACTICES 2021-08-15 06:01:56 Doctor Unassigned, [place] [facility] CONSENT/REFUSAL FOR DIAGNOSIS AND TREATMENT 2021-08-15 05:25:54 Doctor Unassigned, [place] [facility] TROPONIN I 2021-05-28 07:50:00 Cem Choi [facility] D-DIMER 2021-05-28 07:05:00 Cem Choi [facility] XR CHEST 2 VW 2021-05-28 05:46:00 Cem Choi [facility] POCT TEST 2021-05-28 05:32:00 Cem Choi [facility] LIPASE 2021-05-28 05:29:00 Cem Choi [facility] TROPONIN I 2021-05-28 05:29:00 Cem Choi [facility] COMP. METABOLIC PANEL ([id number]) 2021-05-28 05:29:00 Cem Choi [facility] CBC WITH DIFF 2021-05-28 05:29:00 Cem Choi [facility] N-TERMINAL PRO-BNP 2021-05-28 05:29:00 AntonCem majano [facility] COVID-19 (ID NOW RAPID TESTING) 2021-05-28 05:29:00 Cem Choi [facility] TROPONIN I 2021-04-08 10:01:00 [facility]ni Rom[facility] BASIC METABOLIC PANEL (NA, K, CL, CO2, GLUCOSE, BUN, CREATININE, CA) 2021-04-08 10:01:00 Brittni Romero [facility] CBC WITH DIFF 2021-04-08 10:01:00 Brittni Romero [facility] TROPONIN I 2021-04-08 04:12:00 Brittni Romero [facility] XR CHEST 1 VW 2021-04-07 22:33:33 Roberto Richards [facility] LIPASE 2021-04-07 21:52:00 Roberto Richards [facility] MAGNESIUM 2021-04-07 21:52:00 Brittni Romero [facility] TROPONIN I 2021-04-07 21:52:00 Roberto Richards [facility] THYROID STIMULATING HORMONE 2021-04-07 21:52:00 Brittni Romero [facility] COMP. METABOLIC PANEL ([id number]) 2021-04-07 21:52:00 Roberto Richards [facility] LIPID PANEL (17105)(TOTAL CHOLESTEROL, TRIGLYCERIDES, HDL) 2021-04-07 21:52:00 Brittni Romero [facility] CBC WITH DIFF 2021-04-07 21:52:00 Robetro Richards [facility] GLYCOSYLATED HEMOGLOBIN (A1C) 2021-04-07 21:52:00 Brtitni Romero [facility] PROTHROMBIN TIME / INR 2021-04-07 21:52:00 Jalen Richards [facility] ACTIVATED PARTIAL THRMPLAS MARCIO 2021-04-07 21:52:00 Roberto Richards [facility] N-TERMINAL PRO-BNP 2021-04-07 21:52:00 Roberto Richards [facility] COVID-19 (ID NOW RAPID TESTING) 2021-04-07 21:51:00 Roberto Richards [facility] HB ECG ROUTINE & RHYTHM STRIP 2021-04-07 21:38[facility]41 [facility] FOR [facility]IS AND TREATMENT 2021-04-07 21:17:47 Doctor Unassigned, [place] [facility] CT ABDOMEN PELVIS WO CONTRAST 2021-01-12 08:10:17 [facility] 2021-01-12 08:02:00 Jaquan Narvaez [facility] URINALYSIS 2021-01-12 07:58:00 Singer [facility] COMP. METABOLIC PANEL ([id number]) 2021-01-12 07:56:00 Singer [facility] CBC WITH DIFF 2021-01-12 07:56:00 Singer [facility] TROPONIN I 2020-12-11 00:47:00 [facility]W 2020-12-10 22:40:57 Bal Hassan [facility] POCT TEST 2020-12-10 22:32:00 Suzanna Hassan [facility] URINALYSIS 2020-12-10 22:30:00 Mo [facility] LIPASE 2020-12-10 22:24:00 Mo [facility] TROPONIN I 2020-12-10 22:24:00 Mo [facility] HEPATIC FUNCTION PANEL ([id number]) (ALB,T.PRO,BILI T,BU/BC,ALT,AST,ALK PHOS) 2020-12-10 22:24:00 Mo [facility] BASIC METABOLIC PANEL (NA, K, CL, CO2, GLUCOSE, BUN, CREATININE, CA) 2020-12-10 22:24:00 [facility] 2020-12-10 22:24:00 Bal Hassan [facility] D-DIMER 2020-12-10 22:24:00 Bal Hassan [facility] N-TERMINAL PRO-BNP 2020-12-10 22:24:00 Mirtha Hassan [facility] POCT TEST 2020-12-04 21:18:00 Tremaine Becerra [facility] URINALYSIS 2020-12-04 21:17:00 [facility] 2020-12-04 20:20:00 Hernan [facility] TROPONIN I 2020-12-04 20:20:00 Hernan [facility] HEPATIC FUNCTION PANEL ([id number]) (ALB,T.PRO,BILI T,BU/BC,ALT,AST,ALK PHOS) 2020-12-04 20:20:00 Tremaine Becerra [facility] BASIC METABOLIC PANEL (NA, K, CL, CO2, GLUCOSE, BUN, CREATININE, CA) 2020-12-04 20:20:00 [facility] CBC WITH DIFF 2020-12-04 20:20:00 [facility] XR CHEST 1 VW 2020-12-04 20:16:54 [facility] XR ANKLE 3+ VW LEFT 2020-12-04 20:16:54 Tremaine Becerra [facility] CONSENT/REFUSAL FOR DIAGNOSIS AND TREATMENT 2020-12-04 19:43:45 Doctor Unassigned, [place] [facility] XR CHEST 1 VW 2020-11-04 02:24:02 Olivia Garcia [facility] URINE DRUG (IMMUNOASSAY) - 4 ER PANEL 2020-11-04 02:19:00 Olivia Garcia [facility] URINALYSIS 2020-11-04 02:19:00 Olivia Garcia [facility] LIPASE 2020-11-04 02:16:00 Olivia Garcia [facility] TROPONIN I 2020-11-04 02:16:00 Olivia Garcia [facility] COMP. METABOLIC PANEL ([id number]) 2020-11-04 02:16:00 Olivia Garcia [facility] CBC WITH DIFF 2020-11-04 02:16:00 Olivia Garcia [facility] PROTHROMBIN TIME / INR 2020-11-04 02:16:00 Lucia Garcia [facility] ACTIVATED PARTIAL THRMPLAS MARCIO 2020-11-04 02:16:00 Olivia Garcia [facility] CONSENT/REFUSAL FOR DIAGNOSIS AND TREATMENT 2020-11-04 01:11:16 Doctor Unassigned, [place] [facility] XR CHEST 1 VW 2020-09-17 17:32:21 Leeanne Wise [facility] RAPID STREP SCREEN FOR GROUP A 2020-09-17 16:31:00 Leeanne Wise [facility] COVID-19 (ID NOW RAPID TESTING) 2020-09-17 16:31:00 Leeanne Wise [facility] NOTICE OF PRIVACY PRACTICES 2020-09-17 15:47:38 Doctor Unassigned, [place] [facility] CONSENT/REFUSAL FOR DIAGNOSIS AND TREATMENT 2020-09-17 15:47:07 Doctor Unassigned, [place] [facility] XR FOREARM 2 VW LEFT 2020-09-07 06:59:53 Saleem Edward [facility] XR HAND 3+ VW LEFT 2020-09-07 06:59:53 Saleem Edward [facility] NOTICE OF PRIVACY PRACTICES 2020-09-07 06:06:09 Doctor Unassigned, [place] [facility] CONSENT/REFUSAL FOR DIAGNOSIS AND TREATMENT 2020-09-07 06:03:10 Doctor Unassigned, [place] [facility] CT ABDOMEN PELVIS W CONTRAST 2020-08-28 09:16:08 Olivia Garcia [facility] POCT TEST 2020-08-28 08:45:00 Olivia Garcia [facility] URINALYSIS 2020-08-28 08:43:00 Olivia Garcia [facility] LIPASE 2020-08-28 08:09:00 Olivia Garcia [facility] COMP. METABOLIC PANEL ([id number]) 2020-08-28 08:09:00 Olivia Garcia [facility] CBC WITH DIFF 2020-08-28 08:09:00 Olivia [facility]W 2020-08-14 18:10:03 Best Taylor [facility] LIPASE 2020-08-14 17:58:00 [facility] TROPONIN I 2020-08-14 17:58:00 Best Taylor [facility] COMP. METABOLIC PANEL ([id number]) 2020-08-14 17:58:00 Best Taylor [facility] CBC WITH DIFF 2020-08-14 17:58:00 Best Taylor [facility] URINALYSIS 2020-08-14 17:58:00 Best Taylor [facility] LACTIC ACID WHOLE BLOOD 2020-08-14 17:58:00 Sophie Taylor [facility] ADC / LCC - DRUG SCREEN TRIAGE 2020-08-14 17:58:00 Best [place] [facility] CONSENT/REFUSAL FOR DIAGNOSIS AND TREATMENT 2020-08-14 17:33:16 Doctor Unassigned, [place] [facility] CT ABDOMEN PELVIS WO CONTRAST 2020-08-11 04:11:07 Best Taylor [facility] XR CHEST 1 VW 2020-08-11 03:56:48 Best Taylor [facility] POCT TEST 2020-08-11 03:10:00 Best Taylor [facility] BLOOD CULTURE SCREEN 2020-08-11 02:01:00 Best Taylor [facility] BLOOD CULTURE SCREEN 2020-08-11 01:45:00 Best Taylor [facility] LIPASE 2020-08-11 01:45:00 Best Taylor [facility] TROPONIN I 2020-08-11 01:45:00 Best Taylor [facility] HEPATIC FUNCTION PANEL ([id number]) (ALB,T.PRO,BILI T,BU/BC,ALT,AST,ALK PHOS) 2020-08-11 01:45:00 Best Taylor [facility] BASIC METABOLIC PANEL (NA, K, CL, CO2, GLUCOSE, BUN, CREATININE, CA) 2020-08-11 01:45:00 Best Taylor [facility] CBC WITH DIFF 2020-08-11 01:45:00 Best Taylor [facility] URINALYSIS 2020-08-11 01:45:00 Best Taylor [facility] LACTIC ACID WHOLE BLOOD 2020-08-11 01:45:00 Sophie Taylor [facility] COVID-19 (ID NOW RAPID TESTING) 2020-08-11 01:45:00 Best Taylor [facility] CONSENT/REFUSAL FOR DIAGNOSIS AND TREATMENT 2020-08-11 00:12:54 Doctor Unassigned, [place] [facility] XR FOREARM 2 VW LEFT 2020-08-07 14:03:06 Unique Richards [facility] COVID-19 (ID NOW RAPID TESTING) 2020-08-07 13:35:00 Roberto Richards [facility] NOTICE OF PRIVACY PRACTICES 2020-08-07 13:13:25 Doctor Unassigned, [place] [facility] CONSENT/REFUSAL FOR DIAGNOSIS AND TREATMENT 2020-08-07 13:11:06 Doctor Unassigned, [place] [facility] CONSENT/REFUSAL FOR DIAGNOSIS AND TREATMENT 2020-08-07 13:10:57 Doctor Unassigned, [place] [facility] TROPONIN I 2020-07-01 02:03:00 Abdias Robertson [facility] POCT TEST 2020-07-01 00:51:00 Abdias Robertson [facility] URINALYSIS 2020-07-01 00:48:00 Abdias Robertson [facility] CBC WITH DIFF 2020-07-01 00:12:00 [facility]dias [facility] EXTRA TUBE LT. BLUE 2020-07-01 00:12:00 Abdias Robertson [facility] LIPASE 2020-07-01 00:09:00 Abdias Robertson [facility] TROPONIN I 2020-07-01 00:09:00 Abdias Robertson [facility] BASIC METABOLIC PANEL (NA, K, CL, CO2, GLUCOSE, BUN, CREATININE, CA) 2020-07-01 00:09:00 Abdias Robertson [facility] ADC,CLC OR LCC ONLY - INFLUENZA A & B DIRECT ANTIGEN 2020-07-01 00:09:00 Jessica [facility] N-TERMINAL PRO-BNP 2020-07-01 00:09:00 Abdias Robertson [facility] XR CHEST 1 VW 2020-07-01 00:07:07 Abdias Robertson [facility] NOTICE OF PRIVACY PRACTICES 2020-06-30 23:27:46 Doctor Unassigned, [place] [facility] CT CERVICAL SPINE WO CONTRAST 2020-06-28 23:12:00 Narayan Narvaez [facility] CONSENT/REFUSAL FOR DIAGNOSIS AND TREATMENT 2020-06-28 21:52:44 Doctor Unassigned, [place] [facility] POCT TEST 2020-06-13 01:50:00 Leeanne Wise [facility] XR CHEST 1 VW 2020-06-13 01:18:17 Leeanne Wise [facility] URINALYSIS 2020-06-13 00:34:00 Leeanne Wise [facility] COVID-19 (ID NOW RAPID TESTING) 2020-06-13 00:34:00 Leeanne Wise [facility] LIPASE 2020-06-13 00:33:00 Leeanne Wise [facility] TROPONIN I 2020-06-13 00:33:00 Leeanne Wise [facility] HEPATIC FUNCTION PANEL ([id number]) (ALB,T.PRO,BILI T,BU/BC,ALT,AST,ALK PHOS) 2020-06-13 00:33:00 Leeanne Wise [facility] BASIC METABOLIC PANEL (NA, K, CL, CO2, GLUCOSE, BUN, CREATININE, CA) 2020-06-13 00:33:00 Leeanne Wise [facility] CBC WITH DIFF 2020-06-13 00:33:00 Leeanne Wise [facility] D-DIMER 2020-06-13 00:33:00 Leeanne Wise [facility] CONSENT/REFUSAL FOR DIAGNOSIS AND TREATMENT 2020-06-12 23:27:48 Doctor Unassigned, [place] [facility] COVID-19 (ID NOW RAPID TESTING) 2020-05-16 23:50:00 Bushra Rios [facility] LIPASE 2020-05-16 23:21:00 Bushra Rios [facility] HEPATIC FUNCTION PANEL ([id number]) (ALB,T.PRO,BILI T,BU/BC,ALT,AST,ALK PHOS) 2020-05-16 23:21:00 Bushra Rios [facility] BASIC METABOLIC PANEL (NA, K, CL, CO2, GLUCOSE, BUN, CREATININE, CA) 2020-05-16 23:21:00 Bushra Rios [facility] CBC WITH DIFF 2020-05-16 23:21:00 [facility] 2020-05-15 07:42:00 Roberto Richards [facility] CT ABDOMEN PELVIS W CONTRAST 2020-05-15 06:56:53 Roberto Richards [facility] CT HEAD WO CONTRAST 2020-05-15 06:56:27 Alberta Richards [facility] POCT TEST 2020-05-15 05:53:00 Alberta Richards [facility] LIPASE 2020-05-15 05:52:00 Roberto Richards [facility] HEPATIC FUNCTION PANEL ([id number]) (ALB,T.PRO,BILI T,BU/BC,ALT,AST,ALK PHOS) 2020-05-15 05:52:00 Roberto Richards [facility] BASIC METABOLIC PANEL (NA, K, CL, CO2, GLUCOSE, BUN, CREATININE, CA) 2020-05-15 05:52:00 Roberto Richards [facility] ETHANOL 2020-05-15 05:52:00 Roberto Richards [facility] CBC WITH DIFF 2020-05-15 05:52:00 Roberto Richards [facility] PROTHROMBIN TIME / INR 2020-05-15 05:52:00 Jalen Richards [facility] ACTIVATED PARTIAL THRMPLAS MARCIO 2020-05-15 05:52:00 Roberto Richards [facility] URINALYSIS 2020-05-15 05:52:00 Roberto Richards [facility] ADC / LCC - DRUG SCREEN TRIAGE 2020-05-15 05:52:00 Roberto Richards [facility] NOTICE OF PRIVACY PRACTICES 2020-05-15 05:12:38 Doctor Unassigned, [place] [facility] CONSENT/REFUSAL FOR DIAGNOSIS AND TREATMENT 2020-05-15 05:12:26 Doctor Unassigned, [place] [facility] Encounters Start Date/Time End Date/Time Encounter Type Admission Type Attending [facility] Care Facility Care Department Encounter ID Source 2024-08-18 10:00:00 2024-08-18 10:00:00 Outpatient JOANNE MONTES [id number] Kellee Buckley 2024-06-17 15:30:00 2024-06-17 15:30:00 Outpatient KELLEE DORMAN [id number] Kellee Buckley 2024-06-06 21:56:00 2024-06-07 02:40:00 Emergency X OLIVIA GARCIA WAKILI [facility] ERT [id number] [facility] 2024-06-06 21:56:00 2024-06-07 02:40:[address] [facility] [id number] [facility] 2024-06-02 00:00:00 2024-06-02 00:00:00 Outpatient JOANNE MONTES KELLEE [id number] [facility] 2024-05-28 13:00:00 2024-05-28 13:00:00 Outpatient GISELLE OSORIO KELLEE [id number] [facility] 2024-05-20 00:00:00 2024-05-20 00:00:00 Outpatient JOANNE MONTES KELLEE [id number] Kellee [facility] 2024-05-19 11:44:00 2024-05-19 13:35:00 Emergency X ANNALISE WRIGHT [facility] [id number] [facility] 2024-05-19 11:44:00 2024-05-19 13:35:[address] [facility] [id number] [facility] 2024-05-18 11:15:00 2024-05-18 11:15:00 Outpatient LAB90 KELLEE KELLEE [id number] Kellee [facility] 2024-05-18 10:30:00 2024-05-18 10:30:00 Outpatient JOANNE MONTES KELLEE KELLEE [id number] Kellee [facility] 2024-05-17 18:30:00 2024-05-17 22:19:[address] [facility] [id number] [facility] 2024-05-13 18:04:00 2024-05-13 20:42:00 Emergency ER ARELIS KERN [facility] [id number] [facility] 2024-05-12 00:00:00 2024-05-12 00:00:00 Outpatient JOANNE MONTES KELLEE DORMAN [id number] [facility] 2024-05-07 18:47:00 2024-05-07 21:36:[address] [facility] [id number] [facility] 2024-04-22 09:15:00 2024-04-22 09:15:00 Outpatient JOSE MIGUELFARTUN KELLEE DORMAN [id number] Kellee [facility] 2024-04-15 10:30:00 2024-04-15 10:30:00 Outpatient JOANNE MONTES [id number] Kellee [facility] 2024-04-12 00:00:00 2024-04-12 00:00:00 Outpatient JOANNE MONTES [id number] Kellee [facility] 2024-04-10 16:20:00 2024-04-10 18:53:00 Emergency ER TAVARES MG JR [facility] [id number] [facility] 2024-04-10 16:20:00 2024-04-10 18:53:00 Departed Emergency Room [facility] [id number] [facility] 2024-04-08 17:37:00 2024-04-08 20:38:00 Emergency Florentino, Leigh [facility] [id number] [facility] 2024-04-08 00:00:00 2024-04-08 00:00:00 Outpatient JOANNE MONTES [id number] Kellee [facility] 2024-03-12 00:00:00 2024-03-12 00:00:00 Outpatient JOANNE MONTES [id number] Kellee [facility] 2024-03-06 11:00:00 2024-03-06 11:00:00 Outpatient JOANNE MONTES [id number] Kellee Seybold 2024-02-06 11:00:00 2024-02-06 11:00:00 Outpatient GISELLE OSORIO KELLEE DORMAN [id number] Kellee Seybold 2024-02-06 10:40:00 2024-02-06 10:40:00 Outpatient KELLEE DORMAN [id number] Kellee Seybold 2024-02-06 00:00:00 2024-02-06 00:00:00 Outpatient HUNDL, JOANNE DORMAN [id number] Kellee Seybold 2024-02-05 00:00:00 2024-02-05 00:00:00 Outpatient HUNDL, JOANNE DORMAN [id number] Kellee Seybold 2024-01-14 09:30:00 2024-01-14 09:30:00 Outpatient HUNDL, JOANNE DORMAN [id number] Kellee Seybold 2024-01-09 00:00:00 2024-01-09 00:00:00 Outpatient HUNDL, JOANNE DORMAN [id number] Kellee Seybold 2024-01-06 00:00:00 2024-01-06 00:00:00 Outpatient HUNDL, JOANNE DORMAN [id number] Kellee Seybold 2024-01-03 00:00:00 2024-01-03 00:00:00 Outpatient HUNDL, JOANNE DORMAN [id number] Kellee Seybold 2024-01-02 14:00:00 2024-01-02 14:00:00 Outpatient HUNDL, JOANNE DORMAN [id number] Kellee Seybold 2023-12-13 09:30:00 2023-12-13 09:30:00 Outpatient HUNDL, JOANNE DORMAN [id number] Kellee Seybold 2023-12-09 00:00:00 2023-12-09 00:00:00 Outpatient HUNDL, JOANNE DORMAN [id number] Kellee Seybold 2023-12-05 00:00:00 2023-12-05 00:00:00 Outpatient HUNDL, JOANNE DORMAN [id number] Kellee Seybold 2023-12-03 11:45:00 2023-12-03 11:45:00 Outpatient LAB90 KELLEE ANDERSENSEY [id number] [facility] 2023-12-03 11:00:00 2023-12-03 11:00:00 Outpatient JOANNE MNOTES KELLEE [id number] [facility] 2023-11-26 00:00:00 2023-11-26 00:00:00 Outpatient JOANNE MONTES KELLEE [id number] [facility] 2023-10-31 00:00:00 2023-10-31 00:00:00 Outpatient COSMO DORMAN KELLEE [id number] [facility] 2023-10-31 00:00:00 2023-10-31 00:00:00 Outpatient COSMO DORMAN KELLEE [id number] Kellee [facility] 2023-10-29 14:15:00 2023-10-29 14:15:00 Outpatient LAB90 KELLEE KELLEE [id number] Kellee [facility] 2023-10-29 13:30:00 2023-10-29 13:30:00 Outpatient JOANNE MONTES KELLEE [id number] [facility] 2023-10-10 21:31:00 2023-10-11 00:43:00 Emergency X SUMAYARATNAELLENOLIVIA [facility] ERT [id number] [facility] 2023-10-10 21:31:00 2023-10-11 00:43:00 Emergency Olivia Garcia Raad [facility] 1.2.840.114 350.1.13.10 4.2.7.2.686 [id number] [facility] 2023-08-31 18:02:00 2023-08-31 22:40:00 Emergency ER SHERIDAN MCMANUS [facility] [id number] [facility] 2023-08-31 18:02:00 2023-08-31 22:40:00 emergency [facility] [id number] 2023-07-01 19:50:00 2023-07-01 22:59:00 Emergency X ROBERTO RICHARDS [facility] ERT [id number] [facility] 2023-07-01 19:50:00 2023-07-01 22:59:00 Emergency Roberto Richards [facility] 1..840.114 350.1.13.10 4.2.7.2.686 [id number] [facility] 2023-06-04 23:37:00 2023-06-06 13:30:00 Inpatient ER SHAN BUSCH [facility] [id number] [facility] 2023-06-04 23:37:00 2023-06-06 13:30:00 observatio n encounter [facility] [id number] [facility] [id number] 2023-05-11 01:16:00 2023-05-13 17:04:00 Inpatient ER RIDDHI MYLES [facility] MED [id number] [facility] 2023-05-11 01:16:00 2023-05-13 17:04:00 observatio n encounter [facility] [id number] [facility] [id number] 2023-05-10 21:48:00 2023-05-10 21:48:00 Emergency ER AN IRIZARRY [facility] [id number] [facility] 2023-05-09 17:40:00 2023-05-09 20:30:00 Emergency X NARAYAN NARVAEZ [facility] ERT [id number] [facility] 2023-05-09 17:40:00 2023-05-09 20:30:00 Emergency Narayan Narvaez [facility] 1..840.114 350.1.13.10 4.2.7.2.686 [id number] [facility] 2023-05-05 21:31:00 2023-05-06 03:15:00 Emergency ER SHERIDAN MCMANUS [facility] [id number] [facility] 2023-05-05 21:31:00 2023-05-06 03:15:00 emergency [facility] [id number] 2023-04-30 17:18:00 2023-04-30 21:20:00 Emergency X SINGER NARAYAN [facility] ERT [id number] [facility] 2023-04-30 17:18:00 2023-04-30 21:20:00 Emergency Benjyip [facility] 1.2.840.114 350.1.13.10 4.2.7.2.686 [id number] [facility] 2023-04-16 20:40:00 2023-04-16 23:10:00 Emergency X MAURICE ROBERTO [facility] ERT [id number] [facility] 2023-04-16 20:40:00 2023-04-16 23:10:00 Emergency Roberto Richards [facility] 1.2.840.114 350.1.13.10 4.2.7.2.686 [id number] [facility] 2023-04-08 17:28:00 2023-04-08 21:20:[address] Emergency X Saleem EDWARD [facility] ERT [id number] [facility] 2023-04-08 17:28:00 2023-04-08 21:20:00 Emergency Saleem Edward [facility] 1.2.840.114 350.1.13.10 4.2.7.2.686 [id number] [facility] 2023-03-09 20:23:00 2023-03-10 00:20:00 Emergency X ROBERTO RICHARDS [facility] ERT [id number] [facility] 2023-03-09 20:23:00 2023-03-10 00:20:00 Emergency Roberto Richards [facility] 1.2.840.114 350.1.13.10 4.2.7.2.686 [id number] [facility] 2023-03-01 19:35:00 2023-03-02 01:35:[address] X OLIVIA [address] [facility] ERT [id number] [facility] 2023-03-01 19:35:00 2023-03-02 01:35:00 Emergency Olivia Garcia [facility] 1.2840.114 350.1.13.10 4.2.7.2.686 [id number] [facility] 2023-02-17 22:58:00 2023-02-18 02:22:00 Emergency X TATIANA BRITTNI [facility] ERT [id number] [facility] 2023-02-17 22:58:00 2023-02-18 02:22:00 Emergency Brittni Padgett Raad [facility] 1.2.840.114 350.1.13.10 4.2.7.2.686 [id number] [id number] [facility] 2023-02-15 13:46:00 2023-02-17 16:14:00 Outpatient X JESÚS MONTERO [facility] ALTHEA [id number] [facility] 2023-02-15 13:46:00 2023-02-17 16:14:00 Emergency PoncegageLeeanne Jelani [facility] 1.2.840.114 350.1.13.10 4.2.7.2.686 [id number] [facility] 2022-01-17 10:48:00 2022-01-17 10:48:00 Outpatient CATHIE HUYNH [facility] [id number] Heather henriquez [facility] 2022-01-09 16:47:00 2022-01-09 20:28:00 Emergency X ALEXANDERDEONTE MELIDA [facility] ERT [id number] [facility] 2022-01-09 16:47:00 2022-01-09 20:28:00 Emergency EllynMelida booker [facility] 1.2840.114 350.1.13.10 4.2.7.2.686 [id number] [id number] [facility] 2021-12-13 22:16:00 2021-12-14 02:28:00 Emergency X MCQUEENWIL CHILDERS [facility] ERT [id number] [facility] 2021-12-13 22:16:00 2021-12-14 02:28:00 Emergency Saul Mcqueenn R [facility] 1.2840.114 350.1.13.10 4.2.7.2.686 [id number] [facility] 2021-11-11 19:50:00 2021-11-11 23:17:[address] [facility] ERT [id number] [facility] 2021-11-11 19:50:00 2021-11-11 23:17:00 Emergency Dee Wang F [facility] 1.2840.114 350.1.13.10 4.2.7.2.686 [id number] [id number] [facility] 2021-11-11 00:00:00 2021-11-11 00:00:00 Orders Only Doctor Unassigned, [place] [facility] 1.2.840.114 350.1.13.10 4.2.7.2.686 [id number] [facility] 2021-09-11 19:42:00 2021-09-11 23:02:[address] [facility] ERT [id number] [facility] 2021-09-11 19:42:00 2021-09-11 23:02:00 Emergency Dee Wang [facility] 1.2.840.114 350.1.13.10 4.2.7.2.686 [id number] [id number] [facility] 2021-08-14 23:38:00 2021-08-15 02:29:[address] [facility] ERT [id number] [facility] 2021-08-14 23:38:00 2021-08-15 02:29:00 Emergency Olivia Garcia [facility] 1.2840.114 350.1.13.10 4.2.7.2.686 [id number] [facility] 2021-05-27 23:23:00 2021-05-28 04:23:[address] [facility] ERT [id number] [facility] 2021-05-27 23:23:00 2021-05-28 04:23:00 Emergency Cem Choi [facility] 1.2840.114 350.1.13.10 4.2.7.2.686 [id number] [id number] [facility] 2021-04-10 00:00:00 2021-04-10 00:00:00 Transition of Care Shelley Rosas 1.2.840.114 350.1.13.10 4.2.7.2.686 [id number] [facility] 2021-04-07 16:30:00 2021-04-08 17:45:00 Hospital Encounter Roberto Richards Jelani [facility] 1.2.840.114 350.1.13.10 4.2.7.2.686 [id number] [facility] 2021-04-07 16:18:00 2021-04-07 16:18:[address] [facility] ERT [id number] [facility] 2021-01-12 03:01:00 2021-01-12 04:56:00 Emergency Narayan Narvaez [facility] 1.2840.114 350.1.13.10 4.2.7.2.686 [id number] [id number] [facility] 2021-01-12 03:01:00 2021-01-12 03:01:00 Emergency X NARAYAN NARVAEZ [facility] ERT [id number] [facility] 2020-12-10 17:12:00 2020-12-10 21:14:00 Emergency Bal Hassan [facility] 1.2840.114 350.1.13.10 4.2.7.2.686 [id number] [id number] [facility] 2020-12-10 17:12:00 2020-12-10 17:12:[address] [facility] ERT [id number] [facility] 2020-12-04 14:50:00 2020-12-04 17:08:00 Emergency Hernan Tremaine [facility] 1.2840.114 350.1.13.10 4.2.7.2.686 [id number] [id number] [facility] 2020-12-04 14:50:00 2020-12-04 17:08:00 Emergency X TREMAINE BECERRA [facility] ERT [id number] [facility] 2020-11-03 20:44:00 2020-11-03 23:34:00 Emergency Leeanne Wise [facility] 1.2840.114 350.1.13.10 4.2.7.2.686 [id number] [id number] [facility] 2020-11-03 20:44:00 2020-11-03 23:34:00 Emergency X LEEANNE WISE ERT [id number] [facility] 2020-09-19 12:32:00 2020-09-19 14:15:00 Emergency ER MORA POLLOCK [facility] [id number] [facility] 2020-09-17 09:53:00 2020-09-17 11:55:00 Emergency Leeanne Wise [facility] 1.2.840.114 350.1.13.10 4.2.7.2.686 [id number] 084 [id number] 2020-09-17 09:53:00 2020-09-17 11:55:00 Emergency Leeanne Wise [facility] 1.2.840.114 350.1.13.10 4.2.7.2.686 [id number] [id number] [facility] 2020-09-17 09:53:00 2020-09-17 11:55:[address] X LEEANNE WISE [facility] ERT [id number] [facility] 2020-09-07 00:37:00 2020-09-07 01:41:00 Emergency Saleem Edward [facility] 1.2.840.114 350.1.13.10 4.2.7.2.686 [id number] [id number] 2020-09-07 00:37:00 2020-09-07 01:41:00 Emergency Saleem Edward [facility] 1.2.840.114 350.1.13.10 4.2.7.2.686 [id number] [id number] [facility] 2020-09-07 00:37:00 2020-09-07 01:41:00 Emergency X Saleem EDWARD [facility] ERT [id number] [facility] 2020-09-07 00:00:00 2020-09-07 00:00:00 Orders Only Doctor Unassigned, [place] [facility] 1.2.840.114 350.1.13.10 4.2.7.2.686 [id number] 2020-09-07 00:00:00 2020-09-07 00:00:00 Orders Only Doctor Unassigned, [place] [facility] 1.2.840.114 350.1.13.10 4.2.7.2.686 [id number] [facility] 2020-08-28 01:59:00 2020-08-28 04:40:00 [facility] 1.2.840.114 350.1.13.10 4.2.7.2.686 [id number] [id number] 2020-08-28 01:59:00 2020-08-28 04:40:00 [facility] 1.2.840.114 350.1.13.10 4.2.7.2.686 [id number] [id number] [facility] 2020-08-28 01:59:00 2020-08-28 01:59:[address]IV[address] [facility] ERT [id number] [facility] 2020-08-14 11:48:00 2020-08-14 13:42:00 Emergency Best [place] R [facility] 1.2.840.114 350.1.13.10 4.2.7.2.686 [id number] 084 [id number] 2020-08-14 11:48:00 2020-08-14 13:42:00 Emergency Best [place] R [facility] 1.2.840.114 350.1.13.10 4.2.7.2.686 [id number] [id number] [facility] 2020-08-14 11:33:00 2020-08-14 11:33:00 Emergency X BEST TAYL[address] [facility] ERT [id number] [facility] 2020-08-10 18:35:00 2020-08-11 00:05:00 Emergency Best [place] [facility] 1.2840.114 350.1.13.10 4.2.7.2.686 [id number] [id number] 2020-08-10 18:35:00 2020-08-11 00:05:00 Emergency Best [place] [facility] 1.2840.114 350.1.13.10 4.2.7.2.686 [id number] [id number] [facility] 2020-08-10 18:35:00 2020-08-11 00:05:[address] [facility] ERT [id number] [facility] 2020-08-07 07:19:00 2020-08-07 09:02:00 [facility].2840.114 350.1.13.10 4.2.7.2.686 [id number] [id number] 2020-08-07 07:19:00 2020-08-07 09:02:00 Emergency Maurice [facility] 1.2840.114 350.1.13.10 4.2.7.2.686 [id number] [id number] [facility] 2020-08-07 07:12:00 2020-08-07 07:12:[address] [facility] ERT [id number] [facility] 2020-08-07 00:00:00 2020-08-07 00:00:00 Orders Only Doctor Unassigned, [place] [facility] 1.2.840.114 350.1.13.10 4.2.7.2.686 [id number] 2020-08-07 00:00:00 2020-08-07 00:00:00 Orders Only Doctor Unassigned, [place] [facility] 1.2.840.114 350.1.13.10 4.2.7.2.686 [id number] [facility] 2020-07-01 00:00:00 2020-07-01 00:00:00 Letter (Out) [facility] 1.2.840.114 350.1.13.10 4.2.7.2.686 [id number] 2020-07-01 00:00:00 2020-07-01 00:00:00 Letter (Out) [facility] 1.2.840.114 350.1.13.10 4.2.7.2.686 [id number] [facility] 2020-06-30 17:46:00 2020-06-30 21:06:00 Emergency Abdias Robertson [facility] 1.2.840.114 350.1.13.10 4.2.7.2.686 [id number] [id number] 2020-06-30 17:46:00 2020-06-30 21:06:00 Emergency Abdias Robertson [facility] 1.2.840.114 350.1.13.10 4.2.7.2.686 [id number] [id number] [facility] 2020-06-30 17:46:00 2020-06-30 21:06:[address] [facility] ERT [id number] [facility] 2020-06-28 16:00:00 2020-06-28 18:08:00 Emergency Narayan Narvaez [facility] 1.2.840.114 350.1.13.10 4.2.7.2.686 [id number] 084 [id number] 2020-06-28 16:00:00 2020-06-28 18:08:00 Emergency Narayan Narvaez [facility] 1.2.840.114 350.1.13.10 4.2.7.2.686 [id number] [id number] [facility] 2020-06-28 16:00:00 2020-06-28 16:00:00 Emergency X NARAYAN NARVAEZ [facility] ERT [id number] [facility] 2020-06-14 00:00:00 2020-06-14 00:00:00 Telephone [facility] 1.2.840.114 350.1.13.10 4.2.7.2.686 [id number] 2020-06-14 00:00:00 2020-06-14 00:00:00 Telephone [facility] 1.2.840.114 350.1.13.10 4.2.7.2.686 [id number] [facility] 2020-06-12 17:40:00 2020-06-12 22:05:00 Emergency Leeanne Wise [facility] 1.2.840.114 350.1.13.10 4.2.7.2.686 [id number] 084 [id number] 2020-06-12 17:40:00 2020-06-12 22:05:00 Emergency Leeanne Wise [facility] 1.2.840.114 350.1.13.10 4.2.7.2.686 [id number] [id number] [facility] 2020-06-12 17:28:00 2020-06-12 17:28:[address] [facility] ERT [id number] [facility] 2020-05-16 17:10:00 2020-05-16 19:01:00 Emergency Bushra Rios [facility] 1.2.840.114 350.1.13.10 4.2.7.2.686 [id number] 084 [id number] 2020-05-16 17:10:00 2020-05-16 19:01:00 Emergency Bushra Rios [facility] 1.2.840.114 350.1.13.10 4.2.7.2.686 [id number] [id number] [facility] 2020-05-16 17:10:00 2020-05-16 17:10:[address] X [address]RA RIOS [facility] ERT [id number] [facility] 2020-05-14 23:18:00 2020-05-15 02:54:00 Emergency Roberto Richards [facility] 1.2.840.114 350.1.13.10 4.2.7.2.686 [id number] [id number] 2020-05-14 23:18:00 2020-05-15 02:54:00 Emergency Roberto Richards [facility] 1.2.840.114 350.1.13.10 4.2.7.2.686 [id number] [facility] 2020-05-14 23:14:00 2020-05-14 23:14:[address] [facility] ERT [id number] [facility] 2009-07-18 05:35:00 2009-07-18 09:19:00 Emergency ER SINCERE FRANK [facility] [id number] [facility] 2008-10-08 09:55:00 2008-10-08 14:19:00 Emergency ER GUMARO ALVAREZ [facility] [id number] [facility] 2008-03-26 15:21:00 2008-03-26 18:08:00 Emergency ER NEIL WILKINS [facility] [id number] [facility] 2005-05-25 06:35:00 2005-05-25 06:35:00 Outpatient LISA LUNA [facility] [id number] [facility] 2005-05-16 21:57:00 2005-05-16 23:40:00 Emergency ER JW SOLORZANO [facility] [id number] [facility] 2005-04-24 18:49:00 2005-04-24 22:40:00 Emergency ER JW SOLORZANO [facility] [id number] [facility] 2004-12-27 20:30:00 2004-12-28 01:40:00 Emergency ER SANIA SIBLEY [facility] [id number] [facility] 2003-12-07 22:40:00 2003-12-08 02:48:00 Emergency ER GINA MARTIN [facility] [id number] [facility] 2003-12-06 13:57:00 2003-12-06 18:30:00 Emergency ER GABRIEL YIN [facility] [id number] [facility] 2003-08-31 19:43:00 2003-08-31 22:55:00 Emergency ER GUMARO ALVAREZ [facility] [id number] [facility] 2003-08-22 19:26:00 2003-08-22 22:10:00 Emergency ER ALBERTO CASTLE [facility] [id number] [facility] 2002-01-30 22:41:00 2002-01-31 01:29:00 Emergency ER ANTHONY SCHNEIDER [facility] [id number] [facility] 2001-10-28 09:15:00 2001-10-28 11:25:00 Emergency ER LINDA, DARCIE [facility] [id number] [facility] 2001-04-15 19:14:00 2001-04-15 23:10:00 Emergency ER ARLETTE ROBERT [facility] [id number] [facility] 2000-12-25 21:52:00 2000-12-26 00:15:00 Emergency ER GISELA RIOS [facility] [id number] [facility] 2000-12-23 18:51:00 2000-12-23 22:00:00 Emergency ER HUGO COFFMAN [facility] [id number] [facility] 1999-10-26 21:11:00 1999-10-27 00:20:00 Emergency ER JW SOLORZANO [facility] [id number] [facility] Results Test Description Test Time Test Comments Results Result Co mments Source [facility] [id number] 06:16:28Exam: Chest (1 View), 06/06/2024 11:30 PM. Ordering Physician: OLIVIA GARCIA. History: Chest pain. Technique: AP view of the chest. Technical Quality: Adequate. Comparison: Chest radiograph 05/17/2024. Findings: Normal cardiac silhouette size. ?No airspace consolidation, pleuraleffusion, or pneumothorax. No acute osseous abnormality.[facility] [id number] 05:19:00* Test Item Value Reference Range Interpretation Comme nts POCT PREG (test code = 1605) Negative On board controls acceptable with C Line (test code = 3574) Yes POCT PREG LOT # (test code = 3575) [id number] POCT PREG TEST DATE ( test code = 3576) 04/11/2025 Lab Interpretation (test cod e = 86540-9) Normal [facility] [id number] 05:00:24* Test Item Value Reference Range Interpretation Comme [facility] TROPONIN I (test code = 2713703915) 0.000 ng/mL <=0.034 DARWIN (test code = [...] of biotin. Lab Interpretation (test code = 04274-3) Normal [facility]. Metabolic Panel (55600)2024-06-07 05:00:19* Test Item Value Reference Range Interpretation Comme nts NA (test code = 1289505417) 139 mmol/L 135-145 K (test code = 0523406900) 3.6 mmol/L 3.5-5.0 CL (test code = 9601888895) 108 mmol/L 98-108 CO2 TOTAL (test code = 2839904008) 22 mmol/L 23-31 L AGAP (test code = 9127481018) 9 2-16 BUN (test code = 2168865351) 10 mg/dL 7-23 GLUCOSE (test code = 5683156312) 144 mg/dL 70-110 H CREATININE (test code = 2160-0) 0.62 mg/dL 0.50-1.04 TOTAL BILI (test code = 3537207782) 0.1-1.1 L CALCIUM (test code = 7249195525) 9.2 mg/dL 8.6-10.6 T PROTEIN (test code = 8084981936) 6.5 g/dL 6.3-8.2 ALBUMIN (test code = 0851898727) 3.7 g/dL 3.5-5.0 ALK PHOS (test code = 1555142210) 69 U/L 34-122 ALTv (test code = 1742-6) 14 U/L 5-35 AST(SGOT) (test code = 0569220766) 15 U/L 13-40 eGFR (test code = 41221-2) 112.1 mL/min/1.73m2 CKD-EPI eGFR (2020). Assuming creatinine has been stable day-to-day for at least three months, the eGFR indicates Category G1 (>= 90 mL/min/1.73 m2) Lab Interpretation (test code = 74330-4) Abnormal [facility] with [id number] 04:38:25* Test Item Value Reference Range Interpretation Comme nts WBC (test code = 6690-2) 9.16 4.30-11.10 RBC (test code = 789-8) 4.70 3.93-5.25 HGB (test code = 718-7) 12.5 g/dL 11.6-15.0 HCT (test code = 4544-3) 38.1 % 35.7-45.2 MCV (test code = 787-2) 81.1 fL 80.6-95.5 MCH (test code = 785-6) 26.6 pg 25.9-32.8 MCHC (test code = 786-4) 32.8 g/dL 31.6-35.1 RDW-SD (test code = 39852-3) 44.1 fL 39.0-49.9 RDW-CV (test code = 788-0) 14.9 % 12.0-15.5 PLT (test code = 777-3) 358 166-358 MPV (test code = 62474-6) 9.4 fL 9.5-12.9 L NRBC/100 WBC (test code = 3182364194) 0.0 0.0-10.0 NRBC x10^3 (test code = 9902970019) See_Comment [Automated messa ge] The system which generated this result transmitted reference range: 10*3/?L. The reference range was not used to interpret this result as normal/abnormal. GRAN MAT (NEUT) % (test code = 770-8) 58.2 % IMM GRAN % (test code = 5056182487) 0.40 % LYMPH % (test code = 736-9) 34.1 % MONO % (test code = 5905-5) 4.7 % EOS % (test code = 713-8) 2.3 % BASO % (test code = 706-2) 0.3 % GRAN MAT x10^3(ANC) (test code = 2233821767) 5.33 10*3/uL 1.88-7.09 IMM GRAN x10^3 (test code = 7798136054) 0.04 10*3/uL 0.00-0.06 LYMPH x10^3 (test code = 731-0) 3.12 10*3/uL 1.32-3.29 MONO x10^3 (test code = 742-7) 0.43 10*3/uL 0.33-0.92 EOS x10^3 (test code = 711-2) 0.21 10*3/uL 0.03-0.39 BASO x10^3 (test code = 704-7) 0.03 10*3/uL 0.01-0.07 Lab Interpretation (test code = 05213-7) [id number] 18:53:41EXAM: CT HEAD WO CONTRAST HISTORY: 44 years-old Female; Provided indication: Head trauma,moderate-severe. TECHNIQUE: Axial CT of the head was performed and reconstructed at 5 mmintervals. Coronal andsagittal reformatted images were generated. COMPARISON: CT head 05/17/2024 FINDINGS: The ventriclesand cerebral sulci are normal in caliber and configuration.No midline shift or pathological extra-axial fluid collection is present.The basal cisterns are unremarkable. No acute intracranial hemorrhage or significant mass effect is visualized.No parenchymal attenuation abnormality is seen. The forrest-white matterdifferentiation is preserved. The mastoid air cells and visualized paranasal air sinuses are clear. Thecalvarium and central skull base are unremarkable.[facility] 2 VW [id number] 04:08:39EXAM: XR HAND 3+ VW RIGHT, XR ELBOW <3 VW RIGHT, XR FOREARM 2 VW RIGHT HISTORY: 44 years old Female with right hand TECHNIQUE: Multiple views of the right hand, right right forearm, and rightelbow. COMPARISON: None FINDINGS: No acute fracture, dislocation, or aggressive osseous lesion in the righthand, forearm, or elbow. No joint effusion in the elbow. No radiopaqueforeign body. Mild diffuse soft tissue swelling.[facility] 3+ VW [id number] 04:08:39EXAM: XR HAND 3+ VW RIGHT, XR ELBOW <3 VW RIGHT, XR FOREARM 2 VW RIGHT HISTORY: 44 years old Female with right hand TECHNIQUE: Multiple views of the right hand, right right forearm, and rightelbow. COMPARISON: None FINDINGS: No acute fracture, dislocation, or aggressive osseous lesion in the righthand, forearm, or elbow. No joint effusion in the elbow. No radiopaqueforeign body. Mild diffuse soft tissue swelling.[facility] ELBOW <3 VW [id number] 04:08:39EXAM: XR HAND 3+ VW RIGHT, XR ELBOW <3 VW RIGHT, XR FOREARM 2 VW RIGHT HISTORY: 44 years old Female with right hand TECHNIQUE: Multiple views of the right hand, right right forearm, and rightelbow. COMPARISON: None FINDINGS: No acute fracture, dislocation, or aggressive osseous lesion in the righthand, forearm, or elbow. No joint effusion in the elbow. No radiopaqueforeign body. Mild diffuse soft tissue swelling. [facility] MAXILLOFACIAL/MANDIBLE WO CONTRAST 2024-05-18 03:36:27ORDERING PHYSICIAN:ALESHA ?ESTELA CLINICAL INFORMATION: ? Facial trauma, blunt COMPARISON: None Technique: ? CT of the facial bones was performed without IV contrast.Multiplanar reformats were also obtained. This study was performedaccording to ALARA principle for radiation dose reduction. Findings: No acute fractures or dislocations are seen. Paranasal sinuses and mastoidair cells remain wellaerated. Intraorbital structures are also withinnormal limits with no evidence of retrobulbar hematomas or retroconal fatstranding.[facility] CERVICAL SPINE WO CONTRAST 2024-05-18 03:28:19ORDERING PHYSICIAN: ? ALESHA ?ESTELA HISTORY: Neck trauma, dangerous injury mechanism (Age 16-64y) TECHNIQUE: CT of the cervical spine without IV contrast. Coronal andsagittal reformatted images were obtained. ?This study was performedaccording to ALARA principle for radiation dose reduction. COMPARISON: none FINDINGS: Visualization is from the skull base through T1 vertebral body. There isnormal vertebral body height and alignment. ?Posterior disc osteophytecomplex formation at C5/C6 results in moderate narrowing of the centralcanal. ? ?No fractures are identified. ?The prevertebral soft tissues arenormal. The visualized lung apices are clear.[facility] [id number] 02:00:00* Test Item Value Reference Range Interpretation Comme nts POCT PREG (test code = 1605) Negative On board controls acceptable with C Line (test code = 3574) Yes Lab Interpretation (test cod e = 35665-7) Normal [facility]. Metabolic Panel (83036)2024-05-08 01:19:56* Test Item Value Reference Range Interpretation Comme nts NA (test code = 8868797087) 139 mmol/L 135-145 K (test code = 0451280687) 3.3 mmol/L 3.5-5.0 L CL (test code = 1754314843) 107 mmol/L 98-108 CO2 TOTAL (test code = 1163373505) 22 mmol/L 23-31 L AGAP (test code = 1449774889) 10 2-16 BUN (test code = 0591365094) 5 mg/dL 7-23 L GLUCOSE (test code = 8494559257) 131 mg/dL 70-110 H CREATININE (test code = 2160-0) 0.72 mg/dL 0.50-1.04 TOTAL BILI (test code = 6417702175) 0.1-1.1 L CALCIUM (test code = 8318329166) 9.3 mg/dL 8.6-10.6 T PROTEIN (test code = 5695986998) 7.0 g/dL 6.3-8.2 ALBUMIN (test code = 4026533646) 4.1 g/dL 3.5-5.0 ALK PHOS (test code = 2131390707) 76 U/L 34-122 ALTv (test code = 1742-6) 27 U/L 5-35 AST(SGOT) (test code = 7000402473) 30 U/L 13-40 eGFR (test code = 53115-5) 105.2 mL/min/1.73m2 CKD-EPI eGFR (2020). Assuming creatinine has been stable day-to-day for at least three months, the eGFR indicates Category G1 (>= 90 mL/min/1.73 m2) Lab Interpretation (test code = 41014-8) Abnormal [facility] TylerTroponin [id number] 01:18:54* Test Item Value Reference Range Interpretation Comme nts TROPONIN I (test code = 4604207477) 0.003 ng/mL <=0.034 DARWIN (test code = [...] of biotin. Lab Interpretation (test code = 02908-5) Normal [facility] TylerMagnesium2024-11-01 01:07:50* Test Item Value Reference Range Interpretation Comme nts MAGNESIUM (test code = 1283302444) 1.7 mg/dL 1.7-2.4 Lab Interpretation (test cod e = 76424-3) Normal [facility] TylerLipase2024-11-01 01:07:30* Test Item Value Reference Range Interpretation Comme nts LIPASE (test code = 7692292307) 97 U/L 0-220 Lab Interpretation (test cod e = 65421-9) Normal [facility] with Pmlj3830-74-38 00:51:30* Test Item Value Reference Range Interpretation [...] 33.2 g/dL 31.6-35.1 RDW-SD (test code = 46230-7) 43.6 fL 39.0-49.9 RDW-CV (test code = 788-0) 14.8 % 12.0-15.5 PLT (test code = 777-3) 382 166-358 H MPV (test code = 64689-9) 9.7 fL 9.5-12.9 NRBC/100 WBC (test code = 7406583384) 0.0 0.0-10.0 NRBC x10^3 (test code = 3788281642) See_Comment [Automated messa ge] The system which generated this result transmitted reference range: 10*3/?L. The reference range was not used to interpret this result as normal/abnormal. GRAN MAT (NEUT) % (test code = 770-8) 63.3 % IMM GRAN % (test code = 4122619799) 0.40 % LYMPH % (test code = 736-9) 27.5 % MONO % (test code = 5905-5) 5.4 % EOS % (test code = 713-8) 2.9 % BASO % (test code = 706-2) 0.5 % GRAN MAT x10^3(ANC) (test code = 2473493124) 7.25 10*3/uL 1.88-7.09 H IMM GRAN x10^3 (test code = 6080848456) 0.05 10*3/uL 0.00-0.06 LYMPH x10^3 (test code = 731-0) 3.15 10*3/uL 1.32-3.29 MONO x10^3 (test code = 742-7) 0.62 10*3/uL 0.33-0.92 EOS x10^3 (test code = 711-2) 0.33 10*3/uL 0.03-0.39 BASO x10^3 (test code = 704-7) 0.06 10*3/uL 0.01-0.07 Lab Interpretation (test code = 06924-3) Abnormal [facility] or plasma cardiac troponin I panel by high sensitivity fmlcyn9711-73-34 17:16:00* Test Item Value Reference Range Interpretation Comme nts Troponin T High Sensitivity (test code = 41478-3) < 6.0 [facility] CtrSerum or plasma glucose measurement (mass/volume) 2024-04-10 17:14:00* Test Item Value Reference Range Interpretation Comme nts Random Glucose (test code = 2345-7) 109 [facility] CtrSerum or plasma urea nitrogen measurement (mass/volume)2024-04-10 17:14:00* Test Item Value Reference Range Interpretation Comme nts Blood Urea Nitrogen (test co de = 3094-0) 4 [facility] TvvVED8640-06-39 17:14:00* Test Item Value Reference Range Interpretation Comme nts Aspartate Amino Transf (AST/ SGOT) (test code = SNX3653) 14 [facility] CtrBilirubin xaqob5102-47-33 17:14:00* Test Item Value Reference Range Interpretation Comme nts Total Bilirubin (test code = HQW6374) < 0.2 [facility] CtrEstimated glomerular filtration rate (GFR) dofihlpfmfybo7567-56-33 17:14:00* Test Item Value Reference Range Interpretation Comme nts Glomerular Filtration Rate C alc (test code = 063583683) > 60.00 [facility] CtrBUN/creatinine hbsuo1447-25-50 17:14:00* Test Item Value Reference Range Interpretation Comme nts BUN/Creatinine Ratio (test c ode = 48012301) 7.3 [facility] LnzWH49011-11-13 17:14:00* Test Item Value Reference Range Interpretation Comme nts Carbon Dioxide Level (test c ode = 47742248) 22 [facility] CtrAnion gap dpabxrxzafn2812-07-73 17:14:00* Test Item Value Reference Range Interpretation Comme nts Anion Gap (test code = 19991920) 16.6 [facility] CtrCalcium uhuql8364-86-65 17:14:00* Test Item Value Reference Range Interpretation Comme nts Calcium Level (test code = 00970415) 9.9 [facility] CtrGlobulin bhd6685-08-21 17:14:00* Test Item Value Reference Range Interpretation Comme nts Globulin (test code = 926586085) 3.1 [facility] CtrALT (SGPT) ser/zzqy1765-35-94 17:14:00* Test Item Value Reference Range Interpretation Comme nts Alanine Aminotransferase (AL T/SGPT) (test code = 1742-6) 10 [facility] CtrAmylase dmcnl0102-23-97 17:14:00* Test Item Value Reference Range Interpretation Comme nts Amylase Level (test code = 1798-8) 48 [facility] YodLmxbpb6618-98-27 17:14:00* Test Item Value Reference Range Interpretation Comme nts Lipase (test code = 91536211) 24 [facility] CtrALP ser/hhjk3566-23-76 17:14:00* Test Item Value Reference Range Interpretation Comme nts Total Alkaline Phosphatase ( test code = 6768-6) 92 [facility] CtrOpiates gvqon1548-43-51 17:13:00* Test Item Value Reference Range Interpretation Comme nts Urine Opiates Screen (test c ode = 644829609) NEGATIVE [facility] CtrUrine hydrocodone measurement (mass/volume) 2024-04-10 17:13:00* Test Item Value Reference Range Interpretation Comme nts Hydrocodone Level (test code = 3681-4) NEGATIVE [facility] fentanyl measurement by confirmatory method (mass/volume)2024-04-10 17:13:00* Test Item Value Reference Range Interpretation Comme nts Urine Fentanyl Screen (test code = 18889-2) NEGATIVE [facility] CtrPhencyclidine (PCP) ap2850-77-17 17:13:00* Test Item Value Reference Range Interpretation Comme nts Urine Phencyclidine (PCP) Le edilson (test code = 600465663) NEGATIVE [facility] CtrPropoxyphene [Mass/volume] in Vsbmr7361-77-09 17:13:00* Test Item Value Reference Range Interpretation Comme nts Propoxyphene Level (test cod e = 3545-1) NEGATIVE [facility] CtroxyCODONE [Mass/volume] in Qocda7657-89-72 17:13:00* Test Item Value Reference Range Interpretation Comme nts Oxycodone Level (test code = 31765-1) NEGATIVE [facility] CtrAmphetamine ur aphzht8515-64-04 17:13:00* Test Item Value Reference Range Interpretation Comme nts Urine Amphetamines Screen (t est code = 77207-6) NEGATIVE [facility] XzxVnkogswly0581-56-79 17:13:00* Test Item Value Reference Range Interpretation Comme nts Methadone Level (test code = FFM2139) NEGATIVE [facility] CtrBenzodiazepines screen rz3950-07-97 17:13:00* Test Item Value Reference Range Interpretation Comme [facility] Urine Benzodiazepines Screen (test code = 190997954) POSITIVE [facility] CtrCannabinoids (4-pobnmoe-BBV) nasooiqiknk0757-92-84 17:13:00* Test Item Value Reference Range Interpretation Comme [facility] Urine Cannabinoids (test cod e = 619337531) NEGATIVE [facility] CtrCocaine metabolite bsunit7777-70-88 17:13:00* Test Item Value Reference Range Interpretation Comme [facility] Urine Cocaine Metabolite (te st code = 549718578) NEGATIVE [facility] CtrUrine leukocyte esterase vwiqlkcil5560-33-13 17:10:00* Test Item Value Reference Range Interpretation Comme nts Urine Leukocyte Esterase (te st code = 452041882) 3+ [facility] CtrRBC count ur sxig6258-87-86 17:08:00* Test Item Value Reference Range Interpretation Comme [facility] Urine RBC (test code = 798-9) 0-2 [facility] CtrUrine examination for white blood cells (WBC) 2024-04-10 17:08:00* Test Item Value Reference Range Interpretation Comme [facility] Urine WBC (test code = 041041400) >100 [facility] CtrAutomated epithelial cells count in urine sediment (number/area)2024-04-10 17:08:00* Test Item Value Reference Range Interpretation Comme [facility] Urine Epithelial Cells (test code = 08286-8) 6-10 [facility] CtrBacteria detection in urine sediment by light mtwltzlrrn6099-40-86 17:08:00* Test Item Value Reference Range Interpretation Comme [facility] Urine Bacteria (test code = 72654-3) Few [facility] CtrUrine casts detection by automated method 2024-04-10 17:08:00* Test Item Value Reference Range Interpretation Comme nts Urine Casts (test code = 89740-2) 0-2 [facility] CtrHCG ur WF9814-96-68 17:03:00* Test Item Value Reference Range Interpretation Comme nts Urine HCG, Qualitative (test code = 2106-3) NEGATIVE [facility] CtrColor of Urine by Fefa3849-42-60 17:03:00* Test Item Value Reference Range Interpretation Comme nts Urine Color (test code = 40136-6) Yellow [facility] CtrAppearance of Amsdm6695-68-29 17:03:00* Test Item Value Reference Range Interpretation Comme nts Urine Appearance (test code = 5767-9) Cloudy [facility] CtrUrine glucose imvdphxjm6387-83-26 17:03:00* Test Item Value Reference Range Interpretation Comme nts Urine Glucose (UA) (test cod e = 2349-9) Negative [facility] CtrBilirubin zv4416-09-31 17:03:00* Test Item Value Reference Range Interpretation Comme nts Urine Bilirubin (test code = 610465789) Negative [facility] CtrKetones yz9758-58-67 17:03:00* Test Item Value Reference Range Interpretation Comme [facility] Urine Ketones (test code = 30573980) Negative [facility] CtrSpecific gravity of Urine by Automated test strip 2024-04-10 17:03:00* Test Item Value Reference Range Interpretation Comme nts Urine Specific [place] (test code = 85041-2) 1.006 [facility] TaylorUrine blood hclgvagwv0293-17-83 17:03:00* Test Item Value Reference Range Interpretation Comme nts Urine Blood (test code = 50386-2) Nonhemolyzed Trace [facility] CtrpH fn6316-18-65 17:03:00* Test Item Value Reference Range Interpretation Comme nts Urine pH (test code = 2756-5) 6.000 [facility] CtrProtein kw6123-17-94 17:03:00* Test Item Value Reference Range Interpretation Comme nts Urine Protein (test code = 01705726) Negative [facility] CtrUrobilinogen, urine, oe2386-13-43 17:03:00* Test Item Value Reference Range Interpretation Comme nts Urine Urobilinogen (test cod e = 566502388) 0.2 [facility] CtrUrine nitrate ipinpelao7386-30-85 17:03:00* Test Item Value Reference Range Interpretation Comme nts Urine Nitrate (test code = 91774-5) Negative [facility] CtrAbsolute eosinophil vgocd2617-93-38 17:00:00* Test Item Value Reference Range Interpretation Comme [facility] Eosinophils # (Auto) (test c ode = LXJ4629) 0.25 [facility] CtrRBC tgper2537-31-66 17:00:00* Test Item Value Reference Range Interpretation Comme [facility] Red Blood Count (test code = 25091974) 5.17 [facility] NdeCdtehyzpcj3383-29-86 17:00:00* Test Item Value Reference Range Interpretation Comme [facility] Hematocrit (test code = 84428954) 41.9 [facility] CtrMCV (mean corpuscular volume) determination 2024-04-10 17:00:00* Test Item Value Reference Range Interpretation Comme [facility] Mean Corpuscular Volume (shailesh t code = 87580-0) 81.0 [facility] CtrMean corpuscular hemoglobin (MCH) determination 2024-04-10 17:00:00* Test Item Value Reference Range Interpretation Comme [facility] Mean Corpuscular Hemoglobin (test code = 98539914) 26.1 [facility] TaylorMean corpuscular hemoglobin concentration (MCHC) pdnvelyfllumb7075-29-48 17:00:00* Test Item Value Reference Range Interpretation Comme [facility] Mean Corpuscular Hemoglobin Concent (test code = 59731551) 32.2 [facility] CtrRBC distribution width coefficient of variation 2024-04-10 17:00:00* Test Item Value Reference Range Interpretation Comme [facility] Red Cell Distribution Width (test code = 65329295) 15.2 [facility] CtrPlatelet vljrd6221-84-46 17:00:00* Test Item Value Reference Range Interpretation Comme [facility] Platelet Count (test code = 60321064) 343 [facility] CtrMean platelet akacxx8726-58-87 17:00:00* Test Item Value Reference Range Interpretation Comme [facility] Mean Platelet Volume (test c ode = 82689128) 9.3 [facility] CtrNeutrophils seg % nbm7300-31-12 17:00:00* Test Item Value Reference Range Interpretation Comme nts Neutrophils (%) (Auto) (test code = 38196-4) 71.4 [facility] CtrAbsolute immature granulocyte rgbjt6559-34-30 17:00:00* Test Item Value Reference Range Interpretation Comme nts Absolute Immature Granulocyt e (auto (test code = 38576-9) 0.05 [facility] CtrBlood band neutrophils count (number/volume) 2024-04-10 17:00:00* Test Item Value Reference Range Interpretation Comme nts Neutrophils # (Auto) (test c ode = 74631-7) 8.20 [facility] CtrAbsolute lymphocyte hativ2290-89-02 17:00:00* Test Item Value Reference Range Interpretation Comme nts Lymphocytes # (Auto) (test c ode = 70781-9) 2.42 [facility] CtrAbsolute basophil ywqwp2579-27-15 17:00:00* Test Item Value Reference Range Interpretation Comme nts Basophils # (Auto) (test cod e = 72662226) 0.03 [facility] Taylor[facility] NRBC nalyv2759-16-83 17:00:00* Test Item Value Reference Range Interpretation Comme nts Nucleated Red Blood Cells # (test code = 371532767) 0 [facility] CtrCT ABDOMEN PELVIS WO VCRYRTBM1011-54-02 00:27:38 Ordering Physician: LEIGH ROJO Clinical indication: [...] the spine.Multilevel lumbar central canal stenosis is present.[facility] Tyler[facility] Metabolic Dqeoh4743-84-44 23:13:34* Test Item Value Reference Range Interpretation Comme nts NA (test code = 1979832507) 136 mmol/L 135-145 K (test code = 0225356461) 3.7 mmol/L 3.5-5.0 CL (test code = 9813679516) 106 mmol/L 98-108 CO2 TOTAL (test code = 7846502326) 20 mmol/L 23-31 L AGAP (test code = 8353898621) 10 2-16 BUN (test code = 6801770695) 6 mg/dL 7-23 L GLUCOSE (test code = 1791200304) 149 mg/dL 70-110 H CREATININE (test code = 2160-0) 0.63 mg/dL 0.50-1.04 TOTAL BILI (test code = 8586723226) 0.3 mg/dL 0.1-1.1 CALCIUM (test code = 6712855398) 9.2 mg/dL 8.6-10.6 T PROTEIN (test code = 7652642873) 7.4 g/dL 6.3-8.2 ALBUMIN (test code = 6542194182) 4.3 g/dL 3.5-5.0 ALK PHOS (test code = 6023921259) 74 U/L 34-122 ALTv (test code = 1742-6) 20 U/L 5-35 AST(SGOT) (test code = 6916153675) 22 U/L 13-40 eGFR (test code = 36841-3) 111.6 mL/min/1.73m2 CKD-EPI eGFR (2020). Assuming creatinine has been stable day-to-day for at least three months, the eGFR indicates Category G1 (>= 90 mL/min/1.73 m2) Lab Interpretation (test code = 81227-3) Abnormal [facility] TylerLipase, Aubnv9421-77-55 23:12:53* Test Item Value Reference Range Interpretation Comme nts LIPASE (test code = 1097888266) 104 U/L 0-220 Lab Interpretation (test cod e = 75278-3) Normal [facility] TylerPOCT Tngc7682-78-77 23:01:00* Test Item Value Reference Range Interpretation Comme nts POCT PREG (test code = 1605) Negative On board controls acceptable with C Line (test code = 3574) Yes POCT PREG LOT # (test code = 3575) [id number] POCT PREG TEST DATE ( test code = 3576) Lab Interpretation (test cod e = 49652-2) Normal [facility] with Pgdowjpeyjhm6235-35-01 23:00:31* Test Item Value Reference Range Interpretation [...] 33.0 g/dL 31.6-35.1 RDW-SD (test code = 16072-3) 45.5 fL 39.0-49.9 RDW-CV (test code = 788-0) 15.3 % 12.0-15.5 PLT (test code = 777-3) 370 166-358 H MPV (test code = 97100-8) 9.3 fL 9.5-12.9 L NRBC/100 WBC (test code = 3180419965) 0.0 0.0-10.0 NRBC x10^3 (test code = 4902379796) See_Comment [Automated messa ge] The system which generated this result transmitted reference range: 10*3/?L. The reference range was not used to interpret this result as normal/abnormal. GRAN MAT (NEUT) % (test code = 770-8) 71.8 % IMM GRAN % (test code = 7295458946) 0.60 % LYMPH % (test code = 736-9) 20.9 % MONO % (test code = 5905-5) 4.9 % EOS % (test code = 713-8) 1.4 % BASO % (test code = 706-2) 0.4 % GRAN MAT x10^3(ANC) (test code = 6652936859) 9.75 10*3/uL 1.88-7.09 H IMM GRAN x10^3 (test code = 6071073036) 0.08 10*3/uL 0.00-0.06 H LYMPH x10^3 (test code = 731-0) 2.83 10*3/uL 1.32-3.29 MONO x10^3 (test code = 742-7) 0.66 10*3/uL 0.33-0.92 EOS x10^3 (test code = 711-2) 0.19 10*3/uL 0.03-0.39 BASO x10^3 (test code = 704-7) 0.05 10*3/uL 0.01-0.07 Lab Interpretation (test code = 89223-7) Abnormal [facility] Tyler[facility] ABDOMEN PELVIS W FNBXJCDC6513-92-48 05:07:16ORDERING PHYSICIAN:OLIVIA MUSA CLINICAL INFORMATION: ? Abdominal [...] are clear. There are nosuspicious focal osseous lesions.[facility] Complete Metabolic Pxgbj7771-12-17 04:38:59* Test Item Value Reference Range Interpretation Comme nts NA (test code = 8242890080) 138 mmol/L 135-145 K (test code = 7371484343) 3.7 mmol/L 3.5-5.0 CL (test code = 1251738032) 108 mmol/L 98-108 CO2 TOTAL (test code = 6837761980) 22 mmol/L 23-31 L AGAP (test code = 4670430208) 8 2-16 BUN (test code = 5156119176) 12 mg/dL 7-23 GLUCOSE (test code = 7184008564) 98 mg/dL 70-110 CREATININE (test code = 2160-0) 0.62 mg/dL 0.50-1.04 TOTAL BILI (test code = 3697225063) 0.4 mg/dL 0.1-1.1 CALCIUM (test code = 8549916449) 8.9 mg/dL 8.6-10.6 T PROTEIN (test code = 7558078563) 7.1 g/dL 6.3-8.2 ALBUMIN (test code = 0793292011) 3.8 g/dL 3.5-5.0 ALK PHOS (test code = 5329829586) 89 U/L 34-122 ALTv (test code = 1742-6) 17 U/L 5-35 AST(SGOT) (test code = 0680307978) 22 U/L 13-40 eGFR (test code = 52400-5) 112.8 mL/min/1.73m2 CKD-EPI eGFR (2020). Assuming creatinine has been stable day-to-day for at least three months, the eGFR indicates Category G1 (>= 90 mL/min/1.73 m2) Lab Interpretation (test code = 60576-6) Abnormal [facility] Tyler[facility], Ytmjh4490-77-41 04:38:58* Test Item Value Reference Range Interpretation Comme nts LIPASE (test code = 4948364009) 136 U/L 0-220 Lab Interpretation (test cod e = 27108-4) Normal [facility] TylerCBC with Ekaqnybxscjh5620-27-02 04:19:14* Test Item Value Reference Range Interpretation [...] 32.2 g/dL 31.6-35.1 RDW-SD (test code = 14403-3) 50.2 fL 39.0-49.9 H RDW-CV (test code = 788-0) 17.3 % 12.0-15.5 H PLT (test code = 777-3) 377 166-358 H MPV (test code = 37998-1) 9.4 fL 9.5-12.9 L NRBC/100 WBC (test code = 3733846842) 0.0 0.0-10.0 NRBC x10^3 (test code = 5787587074) See_Comment [Automated messa ge] The system which generated this result transmitted reference range: 10*3/?L. The reference range was not used to interpret this result as normal/abnormal. GRAN MAT (NEUT) % (test code = 770-8) 65.3 % IMM GRAN % (test code = 3953324059) 0.40 % LYMPH % (test code = 736-9) 26.1 % MONO % (test code = 5905-5) 6.2 % EOS % (test code = 713-8) 1.6 % BASO % (test code = 706-2) 0.4 % GRAN MAT x10^3(ANC) (test code = [id number]) 7.33 10*3/uL 1.88-7.09 H IMM GRAN x10^3 (test code = 5206519901) 0.04 10*3/uL 0.00-0.06 LYMPH x10^3 (test code = 731-0) 2.93 10*3/uL 1.32-3.29 MONO x10^3 (test code = 742-7) 0.70 10*3/uL 0.33-0.92 EOS x10^3 (test code = 711-2) 0.18 10*3/uL 0.03-0.39 BASO x10^3 (test code = 704-7) 0.05 10*3/uL 0.01-0.07 Lab Interpretation (test code = 06387-2) [facility] [id number] 03:40:00* Test Item Value Reference Range Interpretation Comme nts POCT PREG (test code = 1605) Negative On board controls acceptable with C Line (test code = 3574) Yes POCT PREG LOT # (test code = 3575) [id number] POCT PREG TEST DATE ( test code = 3576) 2024-10-13 Lab Interpretation (test cod e = 03786-4) Normal [facility] [id number] 04:35:04Ordering physician: ROBERTO RICHARDS INDICATION: Abdominal pain COMPARISON: CT of the abdomen and pelv is dated 03/09/2023 FINDINGS: Supine AP view of the abdomen and pelvis. There is no bowelobstruction or generalized constipation.[facility] [id number] 02:30:00* Test Item Value Reference Range Interpretation Comme nts POCT PREG (test code = 1605) Negative On board controls acceptable with C Line (test code = 3574) Yes POCT PREG LOT # (test code = 3575) [id number] POCT PREG TEST DATE ( test code = 3576) 2024-09-15 Lab Interpretation (test cod e = 51576-4) Normal [facility] WITH [id number] 00:05:06* Test Item Value Reference Range Interpretation [...] 34.2 g/dL 31.6-35.1 RDW-SD (test code = 36807-1) 41.5 fL 39.0-49.9 RDW-CV (test code = 788-0) 14.5 % 12.0-15.5 PLT (test code = 777-3) 384 See_Comment H [Automated messa ge] The system which generated this result transmitted reference range: 166 - 358 10*3/?L. The reference range was not used to interpret this result as normal/abnormal. MPV (test code = 39785-5) 9.6 fL 9.5-12.9 GRAN MAT (NEUT) % (test code = 770-8) 66.0 % IMM GRAN % (test code = 0640297743) 0.50 % LYMPH % (test code = 736-9) 27.4 % MONO % (test code = 5905-5) 4.6 % EOS % (test code = 713-8) 1.1 % BASO % (test code = 706-2) 0.4 % GRAN MAT x10^3(ANC) (test code = 0989279543) 7.96 10*3/uL 1.88-7.09 H IMM GRAN x10^3 (test code = 9590677288) 0.06 10*3/uL 0.00-0.06 LYMPH x10^3 (test code = 731-0) 3.30 10*3/uL 1.32-3.29 H MONO x10^3 (test code = 742-7) 0.56 10*3/uL 0.33-0.92 EOS x10^3 (test code = 711-2) 0.13 10*3/uL 0.03-0.39 BASO x10^3 (test code = 704-7) 0.05 10*3/uL 0.01-0.07 Lab Interpretation (test code = 30525-0) [facility]OL[facility] PAN[facility] (58207)2023-05-09 23:27:13* Test Item Value Reference Range Interpretation Comme nts NA (test code = 2221698613) 137 mmol/L 135-145 K (test code = 3607227585) 3.3 mmol/L 3.5-5.0 L CL (test code = 2092358346) 103 mmol/L 98-108 CO2 TOTAL (test code = 4064489464) 20 mmol/L 23-31 L AGAP (test code = 6251824336) 14 2-16 BUN (test code = 5866004396) 5 mg/dL 7-23 L GLUCOSE (test code = 4749046602) 146 mg/dL 70-110 H CREATININE (test code = 3105709305) 0.60 mg/dL 0.50-1.04 TOTAL BILI (test code = 5799260524) 0.3 mg/dL 0.1-1.1 CALCIUM (test code = 1788668922) 9.3 mg/dL 8.6-10.6 T PROTEIN (test code = 7995964104) 7.9 g/dL 6.3-8.2 ALBUMIN (test code = 6856270905) 4.4 g/dL 3.5-5.0 ALK PHOS (test code = 8365837864) 105 U/L 34-122 ALTv (test code = 1742-6) 38 U/L 5-35 H AST(SGOT) (test code = 4146099743) 21 U/L 13-40 eGFR (test code = 43412-8) 113.7 mL/min/1.73m2 CKD-EPI eGFR (2020). Assuming creatinine has been stable day-to-day for at least three months, the eGFR indicates Category G1 (>= 90 mL/min/1.73 m2) Lab Interpretation (test code = 02719-8) [facility]normal [facility]2023-[facility]02 23:27:13* Test Item Value Reference Range Interpretation Comme nts LIPASE (test code = 3231017296) 142 U/L 0-220 Lab Interpretation (test cod e = 44383-5) Normal [facility]OLIC PANEL (29548)2023-04-30 23:41:47* Test Item Value Reference Range Interpretation Comme nts NA (test code = 1083430836) 139 mmol/L 135-145 K (test code = 5175488500) 3.3 mmol/L 3.5-5.0 L CL (test code = 2427889379) 105 mmol/L 98-108 CO2 TOTAL (test code = 5869212263) 20 mmol/L 23-31 L AGAP (test code = 2505969439) 14 2-16 BUN (test code = 2105826767) 6 mg/dL 7-23 L GLUCOSE (test code = 7346497325) 119 mg/dL 70-110 H CREATININE (test code = 8417018829) 0.59 mg/dL 0.50-1.04 TOTAL BILI (test code = 0509147597) 0.3 mg/dL 0.1-1.1 CALCIUM (test code = 9491688746) 9.7 mg/dL 8.6-10.6 T PROTEIN (test code = 9105738329) 7.6 g/dL 6.3-8.2 ALBUMIN (test code = 7537216594) 4.2 g/dL 3.5-5.0 ALK PHOS (test code = 7448166922) 78 U/L 34-122 ALTv (test code = 1742-6) 24 U/L 5-35 AST(SGOT) (test code = 3550945839) 24 U/L 13-40 eGFR (test code = 3378943956) 110.7 mL/min/1.73m2 DARWIN (test code = DARWIN) [...] imaging tests). Lab Interpretation (test code = 91872-9) Abnormal [facility] WITH [id number] 23:29:07* Test Item Value Reference Range Interpretation Comme nts WBC (test code = 6690-2) 11.56 See_Comment H [Automated [employer]VPower] The system which generated this result transmitted reference range: 4.30 - 11.10 10*3/?L. The reference range was not used to interpret this result as normal/abnormal. RBC (test code = 789-8) 5.02 See_Comment [Automated [employer]VPower] The system which generated this result transmitted [...] 33.7 g/dL 31.6-35.1 RDW-SD (test code = 49972-9) 41.5 fL 39.0-49.9 RDW-CV (test code = 788-0) 14.3 % 12.0-15.5 PLT (test code = 777-3) 335 See_Comment [Automated [facility] ge] The system which generated this result transmitted reference range: 166 - 358 10*3/?L. The reference range was not used to interpret this result as normal/abnormal. MPV (test code = 93890-4) 9.7 fL 9.5-12.9 NRBC/100 WBC (test code = 6354108969) 0.0 See_Comment [Automated [employer]] The system which generated this result transmitted reference range: 0.0 - 10.0 /100 WBCs. The reference range was not used to interpret this result as normal/abnormal. NRBC x10^3 (test code = 1508259335) See_Comment [Automated [facility] ge] The system which generated this result transmitted reference range: 10*3/?L. The reference range was not used to interpret this result as normal/abnormal. GRAN MAT (NEUT) % (test code = 770-8) 65.7 % IMM GRAN % (test code = 4327184132) 0.50 % LYMPH % (test code = 736-9) 25.4 % MONO % (test code = 5905-5) 6.7 % EOS % (test code = 713-8) 1.2 % BASO % (test code = 706-2) 0.5 % GRAN MAT x10^3(ANC) (test code = 8283611057) 7.59 10*3/uL 1.88-7.09 H IMM GRAN x10^3 (test code = 2544567112) 0.06 10*3/uL 0.00-0.06 LYMPH x10^3 (test code = 731-0) 2.94 10*3/uL 1.32-3.29 MONO x10^3 (test code = 742-7) 0.77 10*3/uL 0.33-0.92 EOS x10^3 (test code = 711-2) 0.14 10*3/uL 0.03-0.39 BASO x10^3 (test code = 704-7) 0.06 10*3/uL 0.01-0.07 Lab Interpretation (test code = 96903-7) [facility]normal [facility] [id number] 22:59:00* Test Item Value Reference Range Interpretation Comme nts POCT PREG (test code = 1605) Negative On board controls acceptable with C Line (test code = 3574) Yes POCT PREG LOT # (test code = 3575) [id number] POCT PREG TEST DATE ( test code = 3576) 07/10/2024 Lab Interpretation (test cod e = 40513-4) Normal [facility] TylerTROP[facility] [id number] 02:36:34* Test Item Value Reference Range Interpretation Comme nts TROPONIN I (test code = 4375352421) 0.000 ng/mL <=0.034 DARWIN (test code = [...] of biotin. Lab Interpretation (test code = 85109-7) Normal [facility] [id number] 02:34:17* Test Item Value Reference Range Interpretation Comme nts NT-proBNP (test code = 55043-0) 40 pg/mL <=125 Lab Interpretation (test cod e = 71928-4) Normal [facility]ACTIV[facility] THRMPLAS [id number] 02:33:37* Test Item Value Reference Range Interpretation Comme nts APTT Patient (test code = 3173-2) 25 See_Comment [Automated message] The system which generated this result transmitted reference range: 23 - 38 Seconds. The reference range was not used to interpret this result as normal/abnormal. DARWIN (test code = DARWIN) The [facility] patient population mean normal value for aPTT is 30 seconds. Lab Interpretation (test code = 74245-4) Normal [facility] TylerPROTHROMBIN TIME / [id number] 02:31:36* Test Item Value Reference Range Interpretation Comme [facility] PROTIME PATIENT (test code = 5964-2) 12.6 See_Comment [Automated [facility] ge] The system which generated this result transmitted reference range: 12.0 - 14.7 Seconds. The reference range was not used to interpret this result as normal/abnormal. INR (test code = 6301-6) 1.0 Normal INR <1.1; Warfarin Therapeutic range 2.0 to 3.0 or 2.5 to 3.5, depending upon the indications. Lab Interpretation (test code = 41827-4) Normal [facility]. METABOLIC PANEL (74885)2023-04-17 02:24:56* Test Item Value Reference Range Interpretation Comme [facility] NA (test code = 0084887061) 142 mmol/L 135-145 K (test code = 6106811874) 3.1 mmol/L 3.5-5.0 L CL (test code = 2422535347) 108 mmol/L 98-108 CO2 TOTAL (test code = 7372867253) 20 mmol/L 23-31 L AGAP (test code = 5519489980) 14 2-16 BUN (test code = 9205868943) 4 mg/dL 7-23 L GLUCOSE (test code = 7123298303) 107 mg/dL 70-110 CREATININE (test code = 8986096007) 0.61 mg/dL 0.50-1.04 TOTAL BILI (test code = 6270401991) 0.2 mg/dL 0.1-1.1 CALCIUM (test code = 1418363913) 9.1 mg/dL 8.6-10.6 T PROTEIN (test code = 3110777346) 7.0 g/dL 6.3-8.2 ALBUMIN (test code = 1301560098) 3.9 g/dL 3.5-5.0 ALK PHOS (test code = 7921407701) 69 U/L 34-122 ALTv (test code = 1742-6) 21 U/L 5-35 AST(SGOT) (test code = 7063264604) 21 U/L 13-40 eGFR (test code = 3264510332) 106.5 mL/min/1.73m2 DARWIN (test code = DARWIN) [...] imaging tests). Lab Interpretation (test code = 51640-5) [facility]normal [facility]23[facility]11 02:24:56* Test Item Value Reference Range Interpretation Comme nts LIPASE (test code = 6634947032) 104 U/L 0-220 Lab Interpretation (test cod e = 75180-2) Normal [facility] WITH [id number] 02:13:31* Test Item Value Reference Range Interpretation Comme nts WBC (test code = 6690-2) 10.74 See_Comment [Automated [employer]] The system which generated this result transmitted reference range: 4.30 - 11.10 10*3/?L. The reference range was not used to interpret this result as normal/abnormal. RBC (test code = 789-8) 4.75 See_Comment [Automated [employer]] The system which generated this result transmitted [...] 34.5 g/dL 31.6-35.1 RDW-SD (test code = 43608-7) 39.1 fL 39.0-49.9 RDW-CV (test code = 788-0) 13.5 % 12.0-15.5 PLT (test code = 777-3) 324 See_Comment [Automated [facility] ge] The system which generated this result transmitted reference range: 166 - 358 10*3/?L. The reference range was not used to interpret this result as normal/abnormal. MPV (test code = 25604-0) 9.3 fL 9.5-12.9 L NRBC/100 WBC (test code = 8533081209) 0.0 See_Comment [Automated [employer]] The system which generated this result transmitted reference range: 0.0 - 10.0 /100 WBCs. The reference range was not used to interpret this result as normal/abnormal. NRBC x10^3 (test code = 8152553384) See_Comment [Automated [facility] ge] The system which generated this result transmitted reference range: 10*3/?L. The reference range was not used to interpret this result as normal/abnormal. GRAN MAT (NEUT) % (test code = 770-8) 65.2 % IMM GRAN % (test code = 6711703210) 0.40 % LYMPH % (test code = 736-9) 26.5 % MONO % (test code = 5905-5) 5.8 % EOS % (test code = 713-8) 1.7 % BASO % (test code = 706-2) 0.4 % GRAN MAT x10^3(ANC) (test code = 4372445852) 7.01 10*3/uL 1.88-7.09 IMM GRAN x10^3 (test code = 0532197796) 0.04 10*3/uL 0.00-0.06 LYMPH x10^3 (test code = 731-0) 2.85 10*3/uL 1.32-3.29 MONO x10^3 (test code = 742-7) 0.62 10*3/uL 0.33-0.92 EOS x10^3 (test code = 711-2) 0.18 10*3/uL 0.03-0.39 BASO x10^3 (test code = 704-7) 0.04 10*3/uL 0.01-0.07 Lab Interpretation (test code = 98290-9) Abnormal [facility] [id number] 02:11:00* Test Item Value Reference Range Interpretation Comme nts POCT PREG (test code = 1605) Negative On board controls acceptable with C Line (test code = 3574) Yes POCT PREG LOT # (test code = 3575) [id number] POCT PREG TEST DATE ( test code = 3576) 2024-09-04 Lab Interpretation (test cod e = 52889-8) Normal [facility]TROP[facility] [id number] 23:59:14* Test Item Value Reference Range Interpretation Comme nts TROPONIN I (test code = 0309722350) 0.000 ng/mL <=0.034 DARWIN (test code = [...] of biotin. Lab Interpretation (test code = 37499-5) [facility] METABOLIC PANEL (85428)2023-04-08 23:47:52* Test Item Value Reference Range Interpretation Comme nts NA (test code = 9544631225) 138 mmol/L 135-145 K (test code = 5710756987) 3.4 mmol/L 3.5-5.0 L CL (test code = 1281893140) 103 mmol/L 98-108 CO2 TOTAL (test code = 6811877118) 22 mmol/L 23-31 L AGAP (test code = 3696427250) 13 2-16 BUN (test code = 8717702525) 6 mg/dL 7-23 L GLUCOSE (test code = 6487217517) 106 mg/dL 70-110 CREATININE (test code = 1457071827) 0.91 mg/dL 0.50-1.04 TOTAL BILI (test code = 6558634170) 0.2 mg/dL 0.1-1.1 CALCIUM (test code = 8902123253) 8.7 mg/dL 8.6-10.6 T PROTEIN (test code = 3335930886) 7.4 g/dL 6.3-8.2 ALBUMIN (test code = 0662001703) 4.1 g/dL 3.5-5.0 ALK PHOS (test code = 7371015450) 71 U/L 34-122 ALTv (test code = 1742-6) 28 U/L 5-35 AST(SGOT) (test code = 3932864483) 28 U/L 13-40 eGFR (test code = 3423967885) 67.2 mL/min/1.73m2 DARWIN (test code = DARWIN) [...] imaging tests). Lab Interpretation (test code = 65202-7) [facility]normal [facility]MAGN[facility]2023-[facility]-02 23:47:52* Test Item Value Reference Range Interpretation Comme nts MAGNESIUM (test code = 0336840335) 2.0 mg/dL 1.7-2.4 Lab Interpretation (test cod e = 58964-5) Normal [facility] 23:47:52* Test Item Value Reference Range Interpretation Comme nts LIPASE (test code = 8769251128) 74 U/L 0-220 Lab Interpretation (test cod e = 40867-6) Normal [facility] WITH [id number] 23:36:30* Test Item Value Reference Range Interpretation Comme nts WBC (test code = 6690-2) 9.95 See_Comment [Automated [facility] ge] The system which generated this result [...] 34.5 g/dL 31.6-35.1 RDW-SD (test code = 80073-8) 39.3 fL 39.0-49.9 RDW-CV (test code = 788-0) 13.6 % 12.0-15.5 PLT (test code = 777-3) 305 See_Comment [Automated messa ge] The system which generated this result transmitted reference range: 166 - 358 10*3/?L. The reference range was not used to interpret this result as normal/abnormal. MPV (test code = 73207-7) 9.6 fL 9.5-12.9 NRBC/100 WBC (test code = 2340560331) 0.0 See_Comment [Automated [employer]age] The system which generated this result transmitted reference range: 0.0 - 10.0 /100 WBCs. The reference range was not used to interpret this result as normal/abnormal. NRBC x10^3 (test code = 5738101420) See_Comment [Automated [facility] ge] The system which generated this result transmitted reference range: 10*3/?L. The reference range was not used to interpret this result as normal/abnormal. GRAN MAT (NEUT) % (test code = 770-8) 66.5 % IMM GRAN % (test code = 1482823301) 0.30 % LYMPH % (test code = 736-9) 25.3 % MONO % (test code = 5905-5) 5.2 % EOS % (test code = 713-8) 2.3 % BASO % (test code = 706-2) 0.4 % GRAN MAT x10^3(ANC) (test code = 7794013157) 6.61 10*3/uL 1.88-7.09 IMM GRAN x10^3 (test code = 5047608921) 0.03 10*3/uL 0.00-0.06 LYMPH x10^3 (test code = 731-0) 2.52 10*3/uL 1.32-3.29 MONO x10^3 (test code = 742-7) 0.52 10*3/uL 0.33-0.92 EOS x10^3 (test code = 711-2) 0.23 10*3/uL 0.03-0.39 BASO x10^3 (test code = 704-7) 0.04 10*3/uL 0.01-0.07 Lab Interpretation (test code = 05270-4) Abnormal [facility] [id number] 02:51:00* Test Item Value Reference Range Interpretation Comme nts POCT PREG (test code = 1605) Negative On board controls acceptable with C Line (test code = 3574) Yes POCT PREG LOT # (test code = 3575) [id number] POCT PREG TEST DATE ( test code = 3576) 07/10/2024 Lab Interpretation (test cod e = 13271-3) Normal [facility] [id number] 03:26:00* Test Item Value Reference Range Interpretation Comme [facility] POCT PREG (test code = 1605) Negative On board controls acceptable with C Line (test code = 3574) Yes POCT PREG LOT # (test code = 3575) [id number] POCT PREG TEST DATE ( test code = 3576) Lab Interpretation (test cod e = 40567-2) Normal [facility]23-[facility]11 22:35:38* Test Item Value Reference Range Interpretation Comme [facility] LIPASE (test code = 9206658744) 2049 U/L 0-220 H Lab Interpretation (test cod e = 01703-8) Abnormal [facility] WITH [id number] 22:30:10* Test Item Value Reference Range Interpretation [...] 34.6 g/dL 31.6-35.1 RDW-SD (test code = 64423-8) 42.7 fL 39.0-49.9 RDW-CV (test code = 788-0) 14.6 % 12.0-15.5 PLT (test code = 777-3) 331 See_Comment [Automated [facility]] The system which generated this result transmitted reference range: 166 - 358 10*3/?L. The reference range was not used to interpret this result as normal/abnormal. MPV (test code = 43910-4) 9.7 fL 9.5-12.9 NRBC/100 WBC (test code = 4384388746) 0.0 See_Comment [Automated [employer]] The system which generated this result transmitted reference range: 0.0 - 10.0 /100 WBCs. The reference range was not used to interpret this result as normal/abnormal. NRBC x10^3 (test code = 3899214678) See_Comment [Automated [facility]] The system which generated this result transmitted reference range: 10*3/?L. The reference range was not used to interpret this result as normal/abnormal. GRAN MAT (NEUT) % (test code = 770-8) 65.7 % IMM GRAN % (test code = 6225306682) 0.50 % LYMPH % (test code = 736-9) 26.5 % MONO % (test code = 5905-5) 5.4 % EOS % (test code = 713-8) 1.5 % BASO % (test code = 706-2) 0.4 % GRAN MAT x10^3(ANC) (test code = 5929853365) 8.05 10*3/uL 1.88-7.09 H IMM GRAN x10^3 (test code = 6024388551) 0.06 10*3/uL 0.00-0.06 LYMPH x10^3 (test code = 731-0) 3.24 10*3/uL 1.32-3.29 MONO x10^3 (test code = 742-7) 0.66 10*3/uL 0.33-0.92 EOS x10^3 (test code = 711-2) 0.18 10*3/uL 0.03-0.39 BASO x10^3 (test code = 704-7) 0.05 10*3/uL 0.01-0.07 Lab Interpretation (test code = 99387-9) [facility] (90863)2023-02-15 22:27:47* Test Item Value Reference Range Interpretation Comme nts NA (test code = 9655855789) 138 mmol/L 135-145 K (test code = 5616508656) 3.7 mmol/L 3.5-5.0 CL (test code = 7972584211) 105 mmol/L 98-108 CO2 TOTAL (test code = 6735371687) 23 mmol/L 23-31 AGAP (test code = 7064120369) 10 2-16 BUN (test code = 7241471780) 6 mg/dL 7-23 L GLUCOSE (test code = 7901802922) 92 mg/dL 70-110 CREATININE (test code = 8136823030) 0.77 mg/dL 0.50-1.04 TOTAL BILI (test code = 2965573595) 0.7 mg/dL 0.1-1.1 CALCIUM (test code = 5616070051) 9.0 mg/dL 8.6-10.6 T PROTEIN (test code = 1827855244) 7.5 g/dL 6.3-8.2 ALBUMIN (test code = 6008298290) 4.0 g/dL 3.5-5.0 ALK PHOS (test code = 7338441318) 101 U/L 34-122 ALTv (test code = 1742-6) 25 U/L 5-35 AST(SGOT) (test code = 0293721550) 36 U/L 13-40 eGFR (test code = 2088081953) 81.8 mL/min/1.73m2 DARWIN (test code = DARWIN) [...] imaging tests). Lab Interpretation (test code = 85881-5) [facility] TylerD-JQYSX2504-99-43 20:56:28* Test Item Value Reference Range Interpretation Comments D-DIMER (test code = 6596551995) 0.44 See_Comment H [Automated message] The system [...] a diagnosis. Lab Interpretation (test code = 54269-4) Abnormal [facility] [id number] 01:15:16* Test Item Value Reference Range Interpretation Comments TROPONIN I (test code = 2838499529) 0.001 ng/mL See_Comment [Automated message] The system [...] of biotin. Lab Interpretation (test code = 56182-9) Normal [facility] [id number] 22:52:31* Test Item Value Reference Range Interpretation Comments TROPONIN I (test code = 4438974683) 0.001 ng/mL See_Comment [Automated message] The system [...] of biotin. Lab Interpretation (test code = 06961-9) [facility] DAC-[id number] 22:49:33* Test Item Value Reference Range Interpretation Comme nts NT-proBNP (test code = 2109253193) 145 pg/mL See_Comment H [Automated message] The system which generated this result transmitted reference range: <=125. The reference range was not used to interpret this result as normal/abnormal. DARWIN (test code = DARWIN) Biotin has been reported to cause a negative bias, interpret results relative to patient's use of biotin. Lab Interpretation (test code = 78425-8) Abnormal [facility] METABOLIC PANEL (NA, K, CL, CO2, GLUCOSE, BUN, CREATININE, CA)2022-01-09 22:40:32* Test Item Value Reference Range Interpretation Comme nts NA (test code = 2663146993) 142 mmol/L 135-145 K (test code = 8984337503) 3.3 mmol/L 3.5-5.0 L CL (test code = 9383945566) 109 mmol/L 98-108 H CO2 TOTAL (test code = 4591284040) 22 mmol/L 23-31 L AGAP (test code = 7614273265) 2-16 BUN (test code = 9309306882) 9 mg/dL 7-23 GLUCOSE (test code = 0313409316) 116 mg/dL 70-110 H CREATININE (test code = 8864767029) 0.69 mg/dL 0.50-1.04 CALCIUM (test code = 5138936802) 9.2 mg/dL 8.6-10.6 eGFR (test code = 2466262414) mL/min/1.73m2 DARWIN (test code = DARWIN) Association [...] imaging tests). Lab Interpretation (test code = 20106-4) Abnormal [facility] WITH [id number] 22:29:09* Test Item Value Reference Range Interpretation Comme nts WBC (test code = 6690-2) See_Comment [[employer]] The system which generated this result transmitted reference range: 4.30 - 11.10 10*3/?L. The reference range was not used to interpret this result as normal/abnormal. RBC (test code = 789-8) See_Comment [[employer]] The system which generated this result transmitted [...] 34.4 g/dL 31.6-35.1 RDW-SD (test code = 07992-5) 40.7 fL 39.0-49.9 RDW-CV (test code = 788-0) 14.1 % 12.0-15.5 PLT (test code = 777-3) See_Comment [Automated [facility]] The system which generated this result transmitted reference range: 166 - 358 10*3/?L. The reference range was not used to interpret this result as normal/abnormal. MPV (test code = 53075-8) 9.6 fL 9.5-12.9 NRBC/100 WBC (test code = 3811073883) See_Comment [Automated [employer]] The system which generated this result transmitted reference range: 0.0 - 10.0 /100 WBCs. The reference range was not used to interpret this result as normal/abnormal. NRBC x10^3 (test code = 6239094447) <0.01 See_Comment [Automated [facility]] The system which generated this result transmitted reference range: 10*3/?L. The reference range was not used to interpret this result as normal/abnormal. GRAN MAT (NEUT) % (test code = 770-8) 54.7 % IMM GRAN % (test code = 8188858743) 0.40 % LYMPH % (test code = 736-9) 33.8 % MONO % (test code = 5905-5) 7.1 % EOS % (test code = 713-8) 3.3 % BASO % (test code = 706-2) 0.7 % GRAN MAT x10^3(ANC) (test code = 9646154160) 4.87 10*3/uL 1.88-7.09 IMM GRAN x10^3 (test code = 2887781822) 0.04 10*3/uL 0.00-0.06 LYMPH x10^3 (test code = 731-0) 3.01 10*3/uL 1.32-3.29 MONO x10^3 (test code = 742-7) 0.63 10*3/uL 0.33-0.92 EOS x10^3 (test code = 711-2) 0.29 10*3/uL 0.03-0.39 BASO x10^3 (test code = 704-7) 0.06 10*3/uL 0.01-0.07 Lab Interpretation (test code = 23644-4) [id number]:45* Test Item Value Reference Range Interpretation Comments TROPONIN I (test code = 9009352925) 0.000 ng/mL See_Comment [Automated message] The system [...] of biotin. Lab Interpretation (test code = 24226-0) [facility] [id number] 05:00:55 * Test Item Value Reference Range Interpretation Comme nts TSH (test code = 1956848943) See_Comment [Automated PVPower] The system which generated this result transmitted reference range: 0.45 - 4.70 mIU/L. The reference range was not used to interpret this result as normal/abnormal. Lab Interpretation (test code = 75203-4) Normal [facility] [id number] 04:47:50* Test Item Value Reference Range Interpretation Comme nts FREE T4 (test code = 0854006791) See_Comment [Automated [facility]] The system which generated this result transmitted reference range: 0.78 - 2.20 ng/dL:. The reference range was not used to interpret this result as normal/abnormal. Lab Interpretation (test code = 10690-1) Normal [facility] [id number] 04:47:10* Test Item Value Reference Range Interpretation Comme nts FREE T3 (test code = 2192472974) 4.37 pg/mL 2.77-5.27 Lab Interpretation (test cod e = 06308-8) [id number] 04:42:07* Test Item Value Reference Range Interpretation Comments TROPONIN I (test code = 1300233959) 0.001 ng/mL See_Comment [Automated message] The system [...] of biotin. Lab Interpretation (test code = 72429-0) [facility] METABOLIC PANEL (51423)2021-12-14 04:30:28* Test Item Value Reference Range Interpretation Comme nts NA (test code = 2055370922) 141 mmol/L 135-145 K (test code = 1464600691) 3.6 mmol/L 3.5-5.0 CL (test code = 4911465027) 111 mmol/L 98-108 H CO2 TOTAL (test code = 9385435190) 19 mmol/L 23-31 L AGAP (test code = 2540267705) 2-16 BUN (test code = 9332331858) 15 mg/dL 7-23 GLUCOSE (test code = 8933804285) 113 mg/dL 70-110 H CREATININE (test code = 3511188972) 1.05 mg/dL 0.50-1.04 H TOTAL BILI (test code = 9958713374) 0.2 mg/dL 0.1-1.1 CALCIUM (test code = 8022451520) 9.8 mg/dL 8.6-10.6 T PROTEIN (test code = 3717748862) 6.8 g/dL 6.3-8.2 ALBUMIN (test code = 6831094091) 4.2 g/dL 3.5-5.0 ALK PHOS (test code = 6246650627) 73 U/L 34-122 ALTv (test code = 1742-6) 16 U/L 5-35 AST(SGOT) (test code = 0289327373) 19 U/L 13-40 eGFR (test code = 8032822147) mL/min/1.73m2 DARWIN (test code = DARWIN) Association [...] imaging tests). Lab Interpretation (test code = 53949-9) [facility]normal [facility] 04:29:48* Test Item Value Reference Range Interpretation Comme [facility] LIPASE (test code = 3388032483) 225 U/L 0-220 H Lab Interpretation (test cod e = 19000-7) Abnormal [facility] [id number] 04:20:00* Test Item Value Reference Range Interpretation Comme [facility] POCT PREG (test code = 1605) negative On board controls acceptable with C Line (test code = 3574) present POCT PREG LOT # (test code = 3575) [id number] POCT PREG TEST DATE ( test code = 3576) 2023-05-07 Lab Interpretation (test cod e = 45852-6) Normal [facility] WITH [id number] 04:01:25* Test Item Value Reference Range Interpretation [...] 34.3 g/dL 31.6-35.1 RDW-SD (test code = 30465-7) 39.5 fL 39.0-49.9 RDW-CV (test code = 788-0) 13.6 % 12.0-15.5 PLT (test code = 777-3) See_Comment [Automated messa ge] The system which generated this result transmitted reference range: 166 - 358 10*3/?L. The reference range was not used to interpret this result as normal/abnormal. MPV (test code = 67077-4) 9.9 fL 9.5-12.9 NRBC/100 WBC (test code = 1405497586) See_Comment [Automated me ssage] The system which generated this result transmitted reference range: 0.0 - 10.0 /100 WBCs. The reference range was not used to interpret this result as normal/abnormal. NRBC x10^3 (test code = 1675296522) <0.01 See_Comment [Automated messa ge] The system which generated this result transmitted reference range: 10*3/?L. The reference range was not used to interpret this result as normal/abnormal. GRAN MAT (NEUT) % (test code = 770-8) 51.5 % IMM GRAN % (test code = 0076883608) 0.50 % LYMPH % (test code = 736-9) 35.8 % MONO % (test code = 5905-5) 9.4 % EOS % (test code = 713-8) 2.2 % BASO % (test code = 706-2) 0.6 % GRAN MAT x10^3(ANC) (test code = 7681032473) 5.37 10*3/uL 1.88-7.09 IMM GRAN x10^3 (test code = 1138953111) 0.05 10*3/uL 0.00-0.06 LYMPH x10^3 (test code = 731-0) 3.73 10*3/uL 1.32-3.29 H MONO x10^3 (test code = 742-7) 0.98 10*3/uL 0.33-0.92 H EOS x10^3 (test code = 711-2) 0.23 10*3/uL 0.03-0.39 BASO x10^3 (test code = 704-7) 0.06 10*3/uL 0.01-0.07 Lab Interpretation (test code = 11705-1) Abnormal [facility] [id number] 04:04:13* Test Item Value Reference Range Interpretation Comments TROPONIN I (test code = 6631134963) 0.001 ng/mL See_Comment [Automated message] The system [...] of biotin. Lab Interpretation (test code = 50256-9) Normal [facility] [id number] 02:56:00* Test Item Value Reference Range Interpretation Comme nts POCT PREG (test code = 1605) negative On board controls acceptable with C Line (test code = 3574) present POCT PREG LOT # (test code = 3575) [id number] POCT PREG TEST DATE ( test code = 3576) 2023-04-06 Lab Interpretation (test cod e = 09480-7) Normal [facility] TylerTROPONIN [id number] 02:15:30* Test Item Value Reference Range Interpretation Comments TROPONIN I (test code = 5641027164) 0.000 ng/mL See_Comment [Automated message] The system [...] of biotin. Lab Interpretation (test code = 76448-6) Normal [facility] TylerN-TERMINAL HEL-PII5849-82-08 02:12:14* Test Item Value Reference Range Interpretation Comme nts NT-proBNP (test code = 5881718041) 109 pg/mL See_Comment [Automated message] The system which generated this result transmitted reference range: <=125. The reference range was not used to interpret this result as normal/abnormal. DARWIN (test code = DARWIN) Biotin has been reported to cause a negative bias, interpret results relative to patient's use of biotin. Lab Interpretation (test code = 79750-0) Normal [facility]. METABOLIC PANEL (24342)2021-11-12 02:04:12* Test Item Value Reference Range Interpretation Comme nts NA (test code = 9359482930) 140 mmol/L 135-145 K (test code = 2865392272) 4.0 mmol/L 3.5-5.0 CL (test code = 2986412273) 111 mmol/L 98-108 H CO2 TOTAL (test code = 9911496981) 17 mmol/L 23-31 L AGAP (test code = 7035287513) 2-16 BUN (test code = 7309206955) 9 mg/dL 7-23 GLUCOSE (test code = 6402274935) 105 mg/dL 70-110 CREATININE (test code = 4663058557) 0.72 mg/dL 0.50-1.04 TOTAL BILI (test code = 4944109430) 0.4 mg/dL 0.1-1.1 CALCIUM (test code = 6234452749) 9.3 mg/dL 8.6-10.6 T PROTEIN (test code = 2849634367) 6.6 g/dL 6.3-8.2 ALBUMIN (test code = 8781669959) 4.0 g/dL 3.5-5.0 ALK PHOS (test code = 4099516835) 70 U/L 34-122 ALTv (test code = 1742-6) 19 U/L 5-35 AST(SGOT) (test code = 5713604693) 21 U/L 13-40 eGFR (test code = 0677026454) mL/min/1.73m2 DARWIN (test code = DARWIN) Association [...] imaging tests). Lab Interpretation (test code = 55511-7) Abnormal [facility] 02:03:32* Test Item Value Reference Range Interpretation Comme nts LIPASE (test code = 6459004168) 173 U/L 0-220 Lab Interpretation (test cod e = 08731-1) Normal [facility] WITH [id number] 01:43:53* Test Item Value Reference Range Interpretation Comme nts WBC (test code = 6690-2) See_Comment [Automated [employer]] The system which generated this result transmitted reference range: 4.30 - 11.10 10*3/?L. The reference range was not used to interpret this result as normal/abnormal. RBC (test code = 789-8) See_Comment [Automated [employer]] The system which generated this result transmitted [...] 33.7 g/dL 31.6-35.1 RDW-SD (test code = 59667-4) 41.3 fL 39.0-49.9 RDW-CV (test code = 788-0) 14.3 % 12.0-15.5 PLT (test code = 777-3) See_Comment [Automated messa ge] The system which generated this result transmitted reference range: 166 - 358 10*3/?L. The reference range was not used to interpret this result as normal/abnormal. MPV (test code = 71032-8) 9.7 fL 9.5-12.9 NRBC/100 WBC (test code = 2574203286) See_Comment [Automated [employer] ssage] The system which generated this result transmitted reference range: 0.0 - 10.0 /100 WBCs. The reference range was not used to interpret this result as normal/abnormal. NRBC x10^3 (test code = 2894447200) <0.01 See_Comment [Automated messa ge] The system which generated this result transmitted reference range: 10*3/?L. The reference range was not used to interpret this result as normal/abnormal. GRAN MAT (NEUT) % (test code = 770-8) 62.6 % IMM GRAN % (test code = 1952942627) 0.50 % LYMPH % (test code = 736-9) 27.0 % MONO % (test code = 5905-5) 6.5 % EOS % (test code = 713-8) 2.9 % BASO % (test code = 706-2) 0.5 % GRAN MAT x10^3(ANC) (test code = 7489723142) 6.30 10*3/uL 1.88-7.09 IMM GRAN x10^3 (test code = 6293075826) 0.05 10*3/uL 0.00-0.06 LYMPH x10^3 (test code = 731-0) 2.71 10*3/uL 1.32-3.29 MONO x10^3 (test code = 742-7) 0.65 10*3/uL 0.33-0.92 EOS x10^3 (test code = 711-2) 0.29 10*3/uL 0.03-0.39 BASO x10^3 (test code = 704-7) 0.05 10*3/uL 0.01-0.07 Lab Interpretation (test code = 67662-4) Abnormal [facility]PO[facility] [id number] 02:21:00* Test Item Value Reference Range Interpretation Comme nts POCT PREG (test code = 1605) Negative On board controls acceptable with C Line (test code = 3574) Present Lab Interpretation (test cod e = 21259-0) Normal [facility] TylerComplete Metabolic Sxtyq9918-65-01 02:05:50* Test Item Value Reference Range Interpretation Comme nts NA (test code = 0794937442) 137 mmol/L 135-145 K (test code = 9039851346) 3.9 mmol/L 3.5-5.0 CL (test code = 3212719426) 109 mmol/L 98-108 H CO2 TOTAL (test code = 6287891666) 19 mmol/L 23-31 L AGAP (test code = 2935515750) 2-16 BUN (test code = 8070061513) 10 mg/dL 7-23 GLUCOSE (test code = 1287433826) 101 mg/dL 70-110 CREATININE (test code = 0464302413) 0.80 mg/dL 0.50-1.04 TOTAL BILI (test code = 1439764136) 0.3 mg/dL 0.1-1.1 CALCIUM (test code = 9719280641) 8.8 mg/dL 8.6-10.6 T PROTEIN (test code = 8778548820) 6.6 g/dL 6.3-8.2 ALBUMIN (test code = 4011922447) 4.0 g/dL 3.5-5.0 ALK PHOS (test code = 7457098058) 71 U/L 34-122 ALTv (test code = 1742-6) 18 U/L 5-35 AST(SGOT) (test code = 6160831821) 20 U/L 13-40 eGFR (test code = 8282711538) mL/min/1.73m2 DARWIN (test code = DARWIN) Association [...] imaging tests). Lab Interpretation (test code = 56103-9) Abnormal [facility] TylerLipase, Bwexl8451-34-08 02:05:25* Test Item Value Reference Range Interpretation Comme nts LIPASE (test code = 9564914622) 96 U/L 0-220 Lab Interpretation (test cod e = 58310-4) Normal [facility] TylerCBC with Empwwclhgjqx5249-18-09 01:53:06* Test Item Value Reference Range Interpretation Comme nts WBC (test code = 6690-2) See_Comment H [Automated [employer]] The system which generated this result transmitted reference range: 4.30 - 11.10 10*3/?L. The reference range was not used to interpret this result as normal/abnormal. RBC (test code = 789-8) See_Comment H [Automated [facility] [employer]] The system which generated this result [...] 34.3 g/dL 31.6-35.1 RDW-SD (test code = 59499-7) 40.5 fL 39.0-49.9 RDW-CV (test code = 788-0) 14.4 % 12.0-15.5 PLT (test code = 777-3) See_Comment [Automated [facility] [employer] ge] The system which generated this result transmitted reference range: 166 - 358 10*3/?L. The reference range was not used to interpret this result as normal/abnormal. MPV (test code = 37941-4) 9.4 fL 9.5-12.9 L NRBC/100 WBC (test code = 5923578785) See_Comment [Automated [employer] ssage] The system which generated this result transmitted reference range: 0.0 - 10.0 /100 WBCs. The reference range was not used to interpret this result as normal/abnormal. NRBC x10^3 (test code = 5976194043) <0.01 See_Comment [Automated [facility] [employer] ge] The system which generated this result transmitted reference range: 10*3/?L. The reference range was not used to interpret this result as normal/abnormal. GRAN MAT (NEUT) % (test code = 770-8) 59.8 % IMM GRAN % (test code = 7743515751) 0.40 % LYMPH % (test code = 736-9) 31.0 % MONO % (test code = 5905-5) 6.3 % EOS % (test code = 713-8) 2.0 % BASO % (test code = 706-2) 0.5 % GRAN MAT x10^3(ANC) (test code = 3604468100) 6.73 10*3/uL 1.88-7.09 IMM GRAN x10^3 (test code = 4970780887) 0.05 10*3/uL 0.00-0.06 LYMPH x10^3 (test code = 731-0) 3.50 10*3/uL 1.32-3.29 H MONO x10^3 (test code = 742-7) 0.71 10*3/uL 0.33-0.92 EOS x10^3 (test code = 711-2) 0.23 10*3/uL 0.03-0.39 BASO x10^3 (test code = 704-7) 0.06 10*3/uL 0.01-0.07 Lab Interpretation (test code = 49350-0) Abnormal [facility] Dcqa7956-44-81 01:45:00* Test Item Value Reference Range Interpretation Comme nts POCT PREG (test code = 1605) negatibe On board controls acceptable with C Line (test code = 3574) present POCT PREG LOT # (test code = 3575) [id number] POCT PREG TEST DATE ( test code = 3576) 09/04/2022 Lab Interpretation (test cod e = 15138-4) Normal [facility] NOOQ7334-65-70 06:35:00* Test Item Value Reference Range Interpretation Comme nts POCT PREG (test code = 1605) negative On board controls acceptable with C Line (test code = 3574) present POCT PREG LOT # (test code = 3575) [id number] POCT PREG TEST DATE ( test code = 3576) Lab Interpretation (test cod e = 09319-2) [id number] 09:09:55* Test Item Value Reference Range Interpretation Comments TROPONIN I (test code = 3251007955) 0.001 ng/mL See_Comment [Automated message] The system [...] of biotin. Lab Interpretation (test code = 17409-5) Normal [facility] TylerD-SPOHF4441-24-27 07:23:51* Test Item Value Reference Range Interpretation Comments D-DIMER (test code = 0586979650) See_Comment [Automated message] The system which generated [...] a diagnosis. Lab Interpretation (test code = 82609-4) Normal [facility]LIPASE2021-[facility]-21 06:11:26* Test Item Value Reference Range Interpretation Comme nts LIPASE (test code = 9992583102) 155 U/L 0-220 Lab Interpretation (test cod e = 32791-6) Normal [facility] TylerTROPONIN T0615-09-97 06:06:05* Test Item Value Reference Range Interpretation Comments TROPONIN I (test code = 9721185022) 0.002 ng/mL See_Comment [Automated message] The system [...] of biotin. Lab Interpretation (test code = 20526-7) Normal [facility] TylerN-TERMINAL ZHA-UZN3363-62-21 06:03:04* Test Item Value Reference Range Interpretation Comme nts NT-proBNP (test code = 9343341858) 19 pg/mL See_Comment [Automated message] The system which generated this result transmitted reference range: <=125. The reference range was not used to interpret this result as normal/abnormal. DARWIN (test code = DARWIN) Biotin has been reported to cause a negative bias, interpret results relative to patient's use of biotin. Lab Interpretation (test code = 53196-2) Normal [facility] TylerCOMP. METABOLIC PANEL (38005)2021-05-28 05:54:25* Test Item Value Reference Range Interpretation Comme nts NA (test code = 3510273310) 136 mmol/L 135-145 K (test code = 2816120863) 3.2 mmol/L 3.5-5.0 L CL (test code = 8151594544) 109 mmol/L 98-108 H CO2 TOTAL (test code = 0608966853) 16 mmol/L 23-31 L AGAP (test code = 2392353823) 2-16 BUN (test code = 2175162751) 11 mg/dL 7-23 GLUCOSE (test code = 4077756834) 144 mg/dL 70-110 H CREATININE (test code = 0264812840) 0.84 mg/dL 0.50-1.04 TOTAL BILI (test code = 9530423140) 0.2 mg/dL 0.1-1.1 CALCIUM (test code = 9887128520) 9.4 mg/dL 8.6-10.6 T PROTEIN (test code = 2318254029) 6.9 g/dL 6.3-8.2 ALBUMIN (test code = 4017997749) 3.9 g/dL 3.5-5.0 ALK PHOS (test code = 0341068543) 106 U/L 34-122 ALTv (test code = 1742-6) 20 U/L 5-35 AST(SGOT) (test code = 2519126637) 17 U/L 13-40 eGFR (test code = 5969652851) mL/min/1.73m2 DARWIN (test code = DARWIN) Association [...] imaging tests). Lab Interpretation (test code = 17706-8) Abnormal [facility] WITH [id number] 05:40:06* Test Item Value Reference Range Interpretation [...] 33.3 g/dL 31.6-35.1 RDW-SD (test code = 11768-8) 39.7 fL 39.0-49.9 RDW-CV (test code = 788-0) 13.6 % 12.0-15.5 PLT (test code = 777-3) See_Comment [Automated [facility] [employer] ge] The system which generated this result transmitted reference range: 166 - 358 10*3/?L. The reference range was not used to interpret this result as normal/abnormal. MPV (test code = 54203-5) 9.5 fL 9.5-12.9 NRBC/100 WBC (test code = 5663183895) See_Comment [Automated [employer] ssage] The system which generated this result transmitted reference range: 0.0 - 10.0 /100 WBCs. The reference range was not used to interpret this result as normal/abnormal. NRBC x10^3 (test code = 6749755797) <0.01 See_Comment [Automated [facility] [employer] ge] The system which generated this result transmitted reference range: 10*3/?L. The reference range was not used to interpret this result as normal/abnormal. GRAN MAT (NEUT) % (test code = 770-8) 53.7 % IMM GRAN % (test code = 7315806816) 0.50 % LYMPH % (test code = 736-9) 36.0 % MONO % (test code = 5905-5) 6.3 % EOS % (test code = 713-8) 2.8 % BASO % (test code = 706-2) 0.7 % GRAN MAT x10^3(ANC) (test code = 8404931843) 5.38 10*3/uL 1.88-7.09 IMM GRAN x10^3 (test code = 7167199488) 0.05 10*3/uL 0.00-0.06 LYMPH x10^3 (test code = 731-0) 3.60 10*3/uL 1.32-3.29 H MONO x10^3 (test code = 742-7) 0.63 10*3/uL 0.33-0.92 EOS x10^3 (test code = 711-2) 0.28 10*3/uL 0.03-0.39 BASO x10^3 (test code = 704-7) 0.07 10*3/uL 0.01-0.07 Lab Interpretation (test code = 20285-9) Abnormal [facility] TylerPO[facility] DYEZ3504-38-62 05:32:00* Test Item Value Reference Range Interpretation Comme nts POCT PREG (test code = 1605) negative On board controls acceptable with C Line (test code = 3574) present POCT PREG LOT # (test code = 3575) [id number] POCT PREG TEST DATE ( test code = 3576) 08/07/2022 Lab Interpretation (test cod e = 65373-4) Normal [facility] TylerTroponin [id number] 11:13:57* Test Item Value Reference Range Interpretation Comments TROPONIN I (test code = 1669543455) 0.002 ng/mL See_Comment [Automated message] The system [...] of biotin. Lab Interpretation (test code = 00255-1) Normal [facility] Metabolic Panel (NA, K, CL, CO2, GLUCOSE, BUN, CREATININE, CA)2021-04-08 11:04:34* Test Item Value Reference Range Interpretation Comme nts NA (test code = 2121535858) 140 mmol/L 135-145 K (test code = 7169658896) 3.6 mmol/L 3.5-5.0 CL (test code = 7501039679) 111 mmol/L 98-108 H CO2 TOTAL (test code = 7212287816) 22 mmol/L 23-31 L AGAP (test code = 4704971293) 2-16 BUN (test code = 4402930216) 10 mg/dL 7-23 GLUCOSE (test code = 5712874363) 104 mg/dL 70-110 CREATININE (test code = 2758035871) 0.70 mg/dL 0.50-1.04 CALCIUM (test code = 1596350290) 8.7 mg/dL 8.6-10.6 eGFR (test code = 9383206762) mL/min/1.73m2 DARWIN (test code = DARWIN) Association [...] imaging tests). Lab Interpretation (test code = 71811-4) Abnormal [facility] with Jqggmrtucyer9497-06-96 10:46:50* Test Item Value Reference Range Interpretation Comme nts WBC (test code = 6690-2) See_Comment [Automated [employer]] The system which generated this result transmitted reference range: 4.30 - 11.10 10*3/?L. The reference range was not used to interpret this result as normal/abnormal. RBC (test code = 789-8) See_Comment [Automated [employer]] The system which generated this result transmitted [...] 33.5 g/dL 31.6-35.1 RDW-SD (test code = 91569-4) 42.0 fL 39.0-49.9 RDW-CV (test code = 788-0) 14.1 % 12.0-15.5 PLT (test code = 777-3) See_Comment [Automated [employer]] The system which generated this result transmitted reference range: 166 - 358 10*3/?L. The reference range was not used to interpret this result as normal/abnormal. MPV (test code = 82427-0) 10.0 fL 9.5-12.9 NRBC/100 WBC (test code = 8893688177) See_Comment [Automated me ssage] The system which generated this result transmitted reference range: 0.0 - 10.0 /100 WBCs. The reference range was not used to interpret this result as normal/abnormal. NRBC x10^3 (test code = 0175433025) <0.01 See_Comment [Automated me ssage] The system which generated this result transmitted reference range: 10*3/?L. The reference range was not used to interpret this result as normal/abnormal. GRAN MAT (NEUT) % (test code = 770-8) 59.1 % IMM GRAN % (test code = 8967808051) 0.70 % LYMPH % (test code = 736-9) 28.2 % MONO % (test code = 5905-5) 8.5 % EOS % (test code = 713-8) 3.0 % BASO % (test code = 706-2) 0.5 % GRAN MAT x10^3(ANC) (test code = 8959258864) 3.61 10*3/uL 1.88-7.09 IMM GRAN x10^3 (test code = 8593655147) 0.04 10*3/uL 0.00-0.06 LYMPH x10^3 (test code = 731-0) 1.72 10*3/uL 1.32-3.29 MONO x10^3 (test code = 742-7) 0.52 10*3/uL 0.33-0.92 EOS x10^3 (test code = 711-2) 0.18 10*3/uL 0.03-0.39 BASO x10^3 (test code = 704-7) 0.03 10*3/uL 0.01-0.07 [facility]Hern[facility]ruf[facility] D4194-88-74 05:54:48* Test Item Value Reference Range Interpretation Comments TROPONIN I (test code = 5570668400) 0.002 ng/mL See_Comment [Automated message] The system [...] of biotin. Lab Interpretation (test code = 20961-6) Normal [facility] TylerThyroid Stimulating Hormone (TSH)2021-04-08 00:51:16* Test Item Value Reference Range Interpretation Comme nts TSH (test code = 0444977971) See_Comment [Automated [employer]] The system which generated this result transmitted reference range: 0.45 - 4.70 mIU/L. The reference range was not used to interpret this result as normal/abnormal. Lab Interpretation (test code = 93001-8) Normal [facility] TylerGlycosylated Hemoglobin (A1C)2021-04-08 00:26:53* Test Item Value Reference Range Interpretation Comme nts HGB A1C (test code = 4548-4) 5.5 % 4.0-5.7 DARWIN (test code = DARWIN) Reference RangesNormal: <5.7%Prediabetes: 5.7 - 6.4%Diabetes: > 6.5% Lab Interpretation (test code = 50393-4) Normal [facility] TylerLipid Panel (Total Cholesterol, Triglycerides, HDL)2021-04-08 00:20:12* Test Item Value Reference Range Interpretation Comme nts CHOL (test code = 5824212669) 223 mg/dL 120-200 H HDL (test code = 8064603316) 35 mg/dL >50 L HDLC RATIO (test code = 2988849589) See_Comment H [Automated [employer]] The system which generated this result transmitted reference range: <=4.5. The reference range was not used to interpret this result as normal/abnormal. TRIG (test code = 1848871369) 223 mg/dL 30-170 H LDL CHOL (test code = 44767-4) 143 mg/dL See_Comment [Automated [facility] [employer]] The system which generated this result transmitted reference range: <=160. The reference range was not used to interpret this result as normal/abnormal. VLDL (test code = 4917958767) 45 mg/dL 5-60 Lab Interpretation (test code = 68037-1) Abnormal [facility] TylerMagnesium Kjiap4502-79-16 00:20:07* Test Item Value Reference Range Interpretation Comme nts MAGNESIUM (test code = 0640295769) 1.7 mg/dL 1.7-2.4 Lab Interpretation (test cod e = 21382-7) Normal [facility]OL[facility] (17274)2021-04-07 23:04:13* Test Item Value Reference Range Interpretation Comme nts NA (test code = 4006405697) 139 mmol/L 135-145 K (test code = 1818858284) 3.4 mmol/L 3.5-5.0 L CL (test code = 7732320429) 109 mmol/L 98-108 H CO2 TOTAL (test code = 1436946503) 22 mmol/L 23-31 L AGAP (test code = 6028379428) 2-16 BUN (test code = 8105764807) 10 mg/dL 7-23 GLUCOSE (test code = 5630061003) 97 mg/dL 70-110 CREATININE (test code = 3319670096) 0.84 mg/dL 0.50-1.04 TOTAL BILI (test code = 5000921177) 0.3 mg/dL 0.1-1.1 CALCIUM (test code = [id number]) 9.2 mg/dL 8.6-10.6 T PROTEIN (test code = 4059145831) 6.6 g/dL 6.3-8.2 ALBUMIN (test code = 7840636487) 3.8 g/dL 3.5-5.0 ALK PHOS (test code = 2630178900) 69 U/L 34-122 ALTv (test code = 1742-6) 18 U/L 5-35 AST(SGOT) (test code = 6724654037) 19 U/L 13-40 eGFR (test code = 9233119993) mL/min/1.73m2 DRAWIN (test code = DARWIN) Association of Glomerular [...] imaging tests). Lab Interpretation (test code = 75898-6) [facility]normal [facility]TR[facility] [id number] 22:33:04* Test Item Value Reference Range Interpretation Comments TROPONIN I (test code = 1775861896) 0.001 ng/mL See_Comment [Automated message] The system [...] of biotin. Lab Interpretation (test code = 20649-7) Normal [facility] [id number] 22:30:05* Test Item Value Reference Range Interpretation Comme nts NT-proBNP (test code = 5774550291) 352 pg/mL See_Comment H [Automated message] The system which generated this result transmitted reference range: <=125. The reference range was not used to interpret this result as normal/abnormal. DARWIN (test code = DARWIN) Biotin has been reported to cause a negative bias, interpret results relative to patient's use of biotin. Lab Interpretation (test code = 33590-2) Abnormal [facility] TylerACTIV[facility] PART[facility] THRMPLAS [id number] 22:28:48* Test Item Value Reference Range Interpretation Comme nts APTT Patient (test code = 3173-2) See_Comment [Automated message] The system which generated this result transmitted reference range: 23 - 38 Seconds. The reference range was not used to interpret this result as normal/abnormal. DARWIN (test code = DARWIN) The [facility] patient population mean normal value for aPTT is 30 seconds. Lab Interpretation (test code = 38408-4) Normal [facility] TylerPROTHROMBIN TIME / [id number] 22:26:44* Test Item Value Reference Range Interpretation Comme nts PROTIME PATIENT (test code = 5964-2) See_Comment [Automated [facility] ge] The system which generated this result transmitted reference range: 12.0 - 14.7 Seconds. The reference range was not used to interpret this result as normal/abnormal. INR (test code = 6301-6) Normal INR <1.1; Warfarin Therapeutic range 2.0 to 3.0 or 2.5 to 3.5, depending upon the indications. Lab Interpretation (test code = 34494-8) Normal [facility] TylerLIPASE2021-10-01 22:20:05* Test Item Value Reference Range Interpretation Comme nts LIPASE (test code = 9587184105) 66 U/L 0-220 Lab Interpretation (test cod e = 61319-5) Normal [facility] TylerCB WITH [id number] 22:07:01* Test Item Value Reference Range Interpretation [...] 33.2 g/dL 31.6-35.1 RDW-SD (test code = 34897-0) 41.6 fL 39.0-49.9 RDW-CV (test code = 788-0) 14.1 % 12.0-15.5 PLT (test code = 777-3) See_Comment [Automated messa ge] The system which generated this result transmitted reference range: 166 - 358 10*3/?L. The reference range was not used to interpret this result as normal/abnormal. MPV (test code = 35939-4) 9.2 fL 9.5-12.9 L NRBC/100 WBC (test code = 6487699681) See_Comment [Automated [employer]age] The system which generated this result transmitted reference range: 0.0 - 10.0 /100 WBCs. The reference range was not used to interpret this result as normal/abnormal. NRBC x10^3 (test code = 6862358759) <0.01 See_Comment [Automated messa ge] The system which generated this result transmitted reference range: 10*3/?L. The reference range was not used to interpret this result as normal/abnormal. GRAN MAT (NEUT) % (test code = 770-8) 61.6 % IMM GRAN % (test code = 2119672444) 0.60 % LYMPH % (test code = 736-9) 28.7 % MONO % (test code = 5905-5) 4.9 % EOS % (test code = 713-8) 3.7 % BASO % (test code = 706-2) 0.5 % GRAN MAT x10^3(ANC) (test code = 2371677344) 6.24 10*3/uL 1.88-7.09 IMM GRAN x10^3 (test code = 9708173247) 0.06 10*3/uL 0.00-0.06 LYMPH x10^3 (test code = 731-0) 2.90 10*3/uL 1.32-3.29 MONO x10^3 (test code = 742-7) 0.50 10*3/uL 0.33-0.92 EOS x10^3 (test code = 711-2) 0.37 10*3/uL 0.03-0.39 BASO x10^3 (test code = 704-7) 0.05 10*3/uL 0.01-0.07 Lab Interpretation (test code = 52585-1) Abnormal [facility]URINALYSIS2021-07-08 08:49:55* Test Item Value Reference Range Interpretation Comme nts APPEARANCE (test code = 8835102123) Cloudy Clear A COLOR (test code = 4524874041) Yellow Yellow PH (test code = 2170555312) 4.8-8.0 SP GRAVITY (test code = 4125295807) 1.003-1.030 GLU U QUAL (test code = 6586584577) Normal Normal BLOOD (test code = 3911234958) Negative Negative KETONES (test code = 7300495916) Negative Negative PROTEIN (test code = 2887-8) Negative Negative UROBILIN (test code = 0708599327) Normal Normal BILIRUBIN (test code = 9469064214) 2 mg/dL Negative A NITRITE (test code = 1064159293) Negative Negative LEUK MARC (test code = 2169923436) 75/uL Negative A RBC/HPF (test code = 6488037154) See_Comment H [Automated messa ge] The system which generated this result transmitted reference range: 0 - 3 HPF. The reference range was not used to interpret this result as normal/abnormal. WBC/HPF (test code = 1666847374) See_Comment H [Automated messa ge] The system which generated this result transmitted reference range: 0 - 5 HPF. The reference range was not used to interpret this result as normal/abnormal. BACTERIA (test code = 7630985176) Moderate Negative A MUCOUS (test code = 2711725146) Slight Negative LPF A SQ EPITH (test code = 9341414330) HPF YEAST BUD (test code = 0522317690) See_Comment H [Automated messa ge] The system which generated this result transmitted reference range: <=1 HPF. The reference range was not used to interpret this result as normal/abnormal. Ictotest (test code = 7237975963) Negative Lab Interpretation (test code = 01603-0) Abnormal [facility]. METABOLIC PANEL (52644)2021-01-12 08:49:44* Test Item Value Reference Range Interpretation Comme nts NA (test code = 8209277519) 137 mmol/L 135-145 K (test code = 8285059340) 4.6 mmol/L 3.5-5.0 CL (test code = 5685698493) 108 mmol/L 98-108 CO2 TOTAL (test code = 2973928787) 21 mmol/L 23-31 L AGAP (test code = 0743834367) 2-16 BUN (test code = 6463482873) 19 mg/dL 7-23 GLUCOSE (test code = 8668866563) 107 mg/dL 70-110 CREATININE (test code = 4901212186) 0.63 mg/dL 0.50-1.04 TOTAL BILI (test code = 7835830675) 0.4 mg/dL 0.1-1.1 CALCIUM (test code = 0405964348) 9.2 mg/dL 8.6-10.6 T PROTEIN (test code = 0687626886) 7.4 g/dL 6.3-8.2 ALBUMIN (test code = 4327529062) 4.2 g/dL 3.5-5.0 ALK PHOS (test code = 5205422320) 179 U/L 34-122 H ALTv (test code = 1742-6) 113 U/L 5-35 H AST(SGOT) (test code = 8021424340) 38 U/L 13-40 eGFR (test code = 5551094772) mL/min/1.73m2 DARWIN (test code = DARWIN) Association [...] imaging tests). Lab Interpretation (test code = 86715-9) Abnormal [facility] WITH [id number] 08:11:02* Test Item Value Reference Range Interpretation Comme nts WBC (test code = 6690-2) See_Comment H [Automated [employer]] The system which generated this result transmitted reference range: 4.30 - 11.10 10*3/?L. The reference range was not used to interpret this result as normal/abnormal. RBC (test code = 789-8) See_Comment [Automated [employer]] The system which generated this result transmitted [...] 33.3 g/dL 31.6-35.1 RDW-SD (test code = 88878-0) 41.6 fL 39.0-49.9 RDW-CV (test code = 788-0) 14.0 % 12.0-15.5 PLT (test code = 777-3) See_Comment [Automated messa ge] The system which generated this result transmitted reference range: 166 - 358 10*3/?L. The reference range was not used to interpret this result as normal/abnormal. MPV (test code = 20801-7) 9.5 fL 9.5-12.9 NRBC/100 WBC (test code = 6534044536) See_Comment [Automated [employer]] The system which generated this result transmitted reference range: 0.0 - 10.0 /100 WBCs. The reference range was not used to interpret this result as normal/abnormal. NRBC x10^3 (test code = 7923003131) <0.01 See_Comment [Automated messa ge] The system which generated this result transmitted reference range: 10*3/?L. The reference range was not used to interpret this result as normal/abnormal. GRAN MAT (NEUT) % (test code = 770-8) 68.0 % IMM GRAN % (test code = 3459407688) 0.80 % LYMPH % (test code = 736-9) 23.6 % MONO % (test code = 5905-5) 5.1 % EOS % (test code = 713-8) 2.1 % BASO % (test code = 706-2) 0.4 % GRAN MAT x10^3(ANC) (test code = 4631179124) 8.86 10*3/uL 1.88-7.09 H IMM GRAN x10^3 (test code = 6563521283) 0.11 10*3/uL 0.00-0.06 H LYMPH x10^3 (test code = 731-0) 3.07 10*3/uL 1.32-3.29 MONO x10^3 (test code = 742-7) 0.66 10*3/uL 0.33-0.92 EOS x10^3 (test code = 711-2) 0.27 10*3/uL 0.03-0.39 BASO x10^3 (test code = 704-7) 0.05 10*3/uL 0.01-0.07 Lab Interpretation (test code = 39143-2) [facility]normal [facility]PO[facility] [id number] 08:02:00* Test Item Value Reference Range Interpretation Comme nts POCT PREG (test code = 1605) negative On board controls acceptable with C Line (test code = 3574) positive POCT PREG LOT # (test code = 3575) [id number] POCT PREG TEST DATE ( test code = 3576) 07/07/2022 Lab Interpretation (test cod e = 97759-1) Normal [facility] TylerTROPONIN [id number] 01:55:05* Test Item Value Reference Range Interpretation Comme nts TROPONIN I (test code = 8676938747) 0.000 ng/mL See_Comment [Automated message] The system [...] biotin. ? Lab Interpretation (test code = 16730-1) Normal [facility] TylerChest 1 Meky2803-78-80 23:41:46No radiographic evidence of an acute cardiopulmonary process. RL: 2109AFC: [id number] EXAM: XR CHEST 1 VW ORDERING PROVIDER: [...] evidence of an acute cardiopulmonary process.RL: 2109AFC: 65696 [facility] [id number] 23:07:21* Test Item Value Reference Range Interpretation Comme nts TROPONIN I (test code = 9517223477) 0.000 ng/mL See_Comment [Automated message] The system [...] biotin. ? Lab Interpretation (test code = 97095-1) Normal [facility] TylerN-TERMINAL DFP-ZEV5192-96-05 23:04:20* Test Item Value Reference Range Interpretation Comme nts NT-proBNP (test code = 7251436552) 14 pg/mL See_Comment [Automated message] The system which generated this result transmitted reference range: <=125. The reference range was not used to interpret this result as normal/abnormal. DARWIN (test code = DARWIN) Biotin has been reported to cause a negative bias, interpret results relative to patient's use of biotin. Lab Interpretation (test code = 10148-3) Normal [facility] TylerHepatic Function Panel (ALB, T.PRO, BILI T, BU/BC, ALT, AST, ALK PHOS)2020-12-10 22:58:16* Test Item Value Reference Range Interpretation Comme nts TOTAL BILI (test code = 8368245532) 0.5 mg/dL 0.1-1.1 BILI UNCON (test code = 5683907259) 0.3 mg/dL 0.1-1.1 BILI CONJ (test code = 7506639336) 0.0 mg/dL 0.0-0.3 T PROTEIN (test code = 0552724268) 8.1 g/dL 6.3-8.2 ALBUMIN (test code = 8103144753) 4.7 g/dL 3.5-5.0 ALK PHOS (test code = 3599754132) 104 U/L 34-122 ALTv (test code = 1742-6) 18 U/L 5-35 AST(SGOT) (test code = 1187954085) 23 U/L 13-40 Lab Interpretation (test cod e = 74922-3) Normal [facility] Metabolic Panel (NA, K, CL, CO2, GLUCOSE, BUN, CREATININE, CA)2020-12-10 22:57:56* Test Item Value Reference Range Interpretation Comme nts NA (test code = 9619785525) 135 mmol/L 135-145 K (test code = 3751890735) 3.7 mmol/L 3.5-5.0 CL (test code = 0159982308) 105 mmol/L 98-108 CO2 TOTAL (test code = 6283489812) 18 mmol/L 23-31 L AGAP (test code = 4802639329) 2-16 BUN (test code = 7023815248) 14 mg/dL 7-23 GLUCOSE (test code = 4245899261) 108 mg/dL 70-110 CREATININE (test code = 4978472863) 0.56 mg/dL 0.50-1.04 CALCIUM (test code = 8517362574) 9.8 mg/dL 8.6-10.6 eGFR (test code = 1253568899) mL/min/1.73m2 DARWIN (test code = DARWIN) Association [...] imaging tests). Lab Interpretation (test code = 01270-4) Abnormal [facility] TylerLipase Juhat3568-26-01 22:57:56* Test Item Value Reference Range Interpretation Comme nts LIPASE (test code = 5904434981) 122 U/L 0-220 Lab Interpretation (test cod e = 10161-1) Normal [facility] TylerD-JNUOP3345-26-50 22:52:34* Test Item Value Reference Range Interpretation Comments D-DIMER (test code = 2831515287) See_Comment [Automated message] The system which generated [...] a diagnosis. Lab Interpretation (test code = 85359-6) Normal [facility] TylerUrinalysis2021-06-05 22:52:29* Test Item Value Reference Range Interpretation Comme nts APPEARANCE (test code = 0476209345) Hazy Clear A COLOR (test code = 8606142646) Yellow Yellow PH (test code = 6266604430) 4.8-8.0 SP GRAVITY (test code = 4489845559) 1.003-1.030 GLU U QUAL (test code = 3291592660) Normal Normal BLOOD (test code = 7125097468) Negative Negative KETONES (test code = 3060962259) Negative Negative PROTEIN (test code = 2887-8) Negative Negative UROBILIN (test code = 0080133212) Normal Normal BILIRUBIN (test code = 4249541385) 2 mg/dL Negative A NITRITE (test code = 0345911077) Negative Negative LEUK MARC (test code = 7489084308) 25/uL Negative A RBC/HPF (test code = 3993201651) See_Comment [Automated [facility]] The system which generated this result transmitted reference range: 0 - 3 HPF. The reference range was not used to interpret this result as normal/abnormal. WBC/HPF (test code = 6929748623) See_Comment [Automated [facility] ge] The system which generated this result transmitted reference range: 0 - 5 HPF. The reference range was not used to interpret this result as normal/abnormal. BACTERIA (test code = 5961805418) Few Negative A MUCOUS (test code = 5582181364) Slight Negative LPF A SQ EPITH (test code = 1877559069) HPF Lab Interpretation (test code = 17873-6) Abnormal [facility] with Ymuebjcnbnhn7185-53-13 22:45:56* Test Item Value Reference Range Interpretation [...] 33.5 g/dL 31.6-35.1 RDW-SD (test code = 51314-8) 40.5 fL 39.0-49.9 RDW-CV (test code = 788-0) 13.3 % 12.0-15.5 PLT (test code = 777-3) See_Comment H [Automated message] The system which generated this result transmitted reference range: 166 - 358 10*3/?L. The reference range was not used to interpret this result as normal/abnormal. MPV (test code = 25108-9) 9.2 fL 9.5-12.9 L NRBC/100 WBC (test code = 4282094485) See_Comment [Automated message] The system which generated this result transmitted reference range: 0.0 - 10.0 /100 WBCs. The reference range was not used to interpret this result as normal/abnormal. NRBC x10^3 (test code = 8206963828) <0.01 See_Comment [Automated message] The system which generated this result transmitted reference range: 10*3/?L. The reference range was not used to interpret this result as normal/abnormal. GRAN MAT (NEUT) % (test code = 770-8) 73.4 % IMM GRAN % (test code = 8524388595) 0.50 % LYMPH % (test code = 736-9) 17.5 % MONO % (test code = 5905-5) 6.5 % EOS % (test code = 713-8) 1.6 % BASO % (test code = 706-2) 0.5 % GRAN MAT x10^3(ANC) (test code = 4180739528) 10.21 10*3/uL 1.88-7.09 H IMM GRAN x10^3 (test code = 0682886662) 0.07 10*3/uL 0.00-0.06 H LYMPH x10^3 (test code = 731-0) 2.44 10*3/uL 1.32-3.29 MONO x10^3 (test code = 742-7) 0.90 10*3/uL 0.33-0.92 EOS x10^3 (test code = 711-2) 0.22 10*3/uL 0.03-0.39 BASO x10^3 (test code = 704-7) 0.07 10*3/uL 0.01-0.07 Lab Interpretation (test code = 31791-1) [facility]normal [facility] TylerPO[facility] Hnxq0914-25-36 22:32:00* Test Item Value Reference Range Interpretation Comme nts POCT PREG (test code = 1605) negative On board controls acceptable with C Line (test code = 3574) present POCT PREG LOT # (test code = 3575) [id number] POCT PREG TEST DATE ( test code = 3576) 06/06/2022 Lab Interpretation (test cod e = 28232-0) Normal [facility] TylerUrinalysis2021-05-30 21:34:43* Test Item Value Reference Range Interpretation Comme nts APPEARANCE (test code = 3976342899) Clear Clear COLOR (test code = 1552948474) Yellow Yellow PH (test code = 6906701128) 4.8-8.0 SP GRAVITY (test code = 8275203459) 1.003-1.030 GLU U QUAL (test code = 9499201178) Normal Normal BLOOD (test code = 4559814854) Negative Negative KETONES (test code = 0777398403) Negative Negative PROTEIN (test code = 2887-8) Negative Negative UROBILIN (test code = 3125374476) Normal Normal BILIRUBIN (test code = 4373613308) Negative Negative NITRITE (test code = 5254804737) Negative Negative LEUK MARC (test code = 4779596821) Negative Negative RBC/HPF (test code = 4185068851) See_Comment [Automated [facility]] The system which generated this result transmitted reference range: 0 - 3 HPF. The reference range was not used to interpret this result as normal/abnormal. WBC/HPF (test code = 1589888051) <1 See_Comment [Automated [facility]] The system which generated this result transmitted reference range: 0 - 5 HPF. The reference range was not used to interpret this result as normal/abnormal. BACTERIA (test code = 4120049104) Negative Negative MUCOUS (test code = 3620335005) Slight Negative LPF A SQ EPITH (test code = 0065680021) HPF Lab Interpretation (test code = 48165-1) Abnormal [facility] TylerPOCT Jonl4018-74-16 21:18:00* Test Item Value Reference Range Interpretation Comme nts POCT PREG (test code = 1605) negative On board controls acceptable with C Line (test code = 3574) present POCT PREG LOT # (test code = 3575) [id number] POCT PREG TEST DATE ( test code = 3576) 06/06/2022 Lab Interpretation (test cod e = 89709-0) Normal [facility] TylerXR ANKLE 3+ VW ALGF6522-31-35 21:11:00No acute bony abnormality. Preliminary Report Dictated [...] reviewed this study and agree with the abovereport.[facility] TylerTroponin [id number] 20:59:44* Test Item Value Reference Range Interpretation Comme nts TROPONIN I (test code = 0407670926) 0.000 ng/mL See_Comment [Automated message] The system [...] biotin. ? Lab Interpretation (test code = 33616-7) Normal [facility] TylerLipase Iofqo4264-05-02 20:48:20* Test Item Value Reference Range Interpretation Comme nts LIPASE (test code = 4305315108) 96 U/L 0-220 Lab Interpretation (test cod e = 57615-6) Normal [facility] TylerBasic Metabolic Panel (NA, K, CL, CO2, GLUCOSE, BUN, CREATININE, CA)2020-12-04 20:48:20* Test Item Value Reference Range Interpretation Comme nts NA (test code = 8092785887) 138 mmol/L 135-145 K (test code = 8021286211) 3.8 mmol/L 3.5-5.0 CL (test code = 1083760219) 108 mmol/L 98-108 CO2 TOTAL (test code = 5803711235) 21 mmol/L 23-31 L AGAP (test code = 3539106671) 2-16 BUN (test code = 1724820417) 13 mg/dL 7-23 GLUCOSE (test code = 8053710452) 107 mg/dL 70-110 CREATININE (test code = 2326382309) 0.66 mg/dL 0.50-1.04 CALCIUM (test code = 7119373575) 9.3 mg/dL 8.6-10.6 eGFR (test code = 4321604953) mL/min/1.73m2 DARWIN (test code = DARWIN) Association [...] imaging tests). Lab Interpretation (test code = 73514-4) Abnormal [facility] TylerHepatic Function [facility] (ALB, T.PRO, BILI T, BU/BC, ALT, AST, ALK PHOS)2020-12-04 20:48:20* Test Item Value Reference Range Interpretation Comme nts TOTAL BILI (test code = 8197205415) 0.3 mg/dL 0.1-1.1 BILI UNCON (test code = 3022618729) 0.1 mg/dL 0.1-1.1 BILI CONJ (test code = 5085692923) 0.0 mg/dL 0.0-0.3 T PROTEIN (test code = 5027921907) 7.0 g/dL 6.3-8.2 ALBUMIN (test code = 9340424954) 4.0 g/dL 3.5-5.0 ALK PHOS (test code = 8242528081) 114 U/L 34-122 ALTv (test code = 1742-6) 30 U/L 5-35 AST(SGOT) (test code = 9971523317) 23 U/L 13-40 Lab Interpretation (test cod e = 00346-1) Normal [facility] with Pjkihjdrppxi5819-29-77 20:35:01* Test Item Value Reference Range Interpretation Comme nts WBC (test code = 6690-2) See_Comment [Automated [facility]] The system which generated this result transmitted reference range: 4.30 - 11.10 10*3/?L. The reference range was not used to interpret this result as normal/abnormal. RBC (test code = 789-8) See_Comment [Automated [facility] ge] The system which generated this result [...] 34.0 g/dL 31.6-35.1 RDW-SD (test code = 36507-7) 39.8 fL 39.0-49.9 RDW-CV (test code = 788-0) 12.9 % 12.0-15.5 PLT (test code = 777-3) See_Comment [Automated [facility] ge] The system which generated this result transmitted reference range: 166 - 358 10*3/?L. The reference range was not used to interpret this result as normal/abnormal. MPV (test code = 04559-2) 9.3 fL 9.5-12.9 L NRBC/100 WBC (test code = 6867626750) See_Comment [Automated me ssage] The system which generated this result transmitted reference range: 0.0 - 10.0 /100 WBCs. The reference range was not used to interpret this result as normal/abnormal. NRBC x10^3 (test code = 2188836275) <0.01 See_Comment [Automated messa ge] The system which generated this result transmitted reference range: 10*3/?L. The reference range was not used to interpret this result as normal/abnormal. GRAN MAT (NEUT) % (test code = 770-8) 71.5 % IMM GRAN % (test code = 2417980591) 0.30 % LYMPH % (test code = 736-9) 19.8 % MONO % (test code = 5905-5) 6.2 % EOS % (test code = 713-8) 1.8 % BASO % (test code = 706-2) 0.4 % GRAN MAT x10^3(ANC) (test code = 3695104909) 6.79 10*3/uL 1.88-7.09 IMM GRAN x10^3 (test code = 4324256885) 0.03 10*3/uL 0.00-0.06 LYMPH x10^3 (test code = 731-0) 1.88 10*3/uL 1.32-3.29 MONO x10^3 (test code = 742-7) 0.59 10*3/uL 0.33-0.92 EOS x10^3 (test code = 711-2) 0.17 10*3/uL 0.03-0.39 BASO x10^3 (test code = 704-7) 0.04 10*3/uL 0.01-0.07 Lab Interpretation (test code = 68603-5) Abnormal [facility] TylerDR[facility] (URINE)2020-11-04 02:54:38* Test Item Value Reference Range Interpretation Comme nts AMPHET (test code = 8252449341) Negative Negative Cocaine Metabolite (test code = 6356068037) Negative Negative OPIATES (test code = 1320607198) Presumptive Positive Negative A THC (test code = 3143164816) Negative Negative DARWIN (test code = DARWIN) Urine Drug Cutoff Ranges Amphetamine: ? 1,000 ng/mLCocaine: ? 150 ng/mLOpiates: ? 300 ng/mLCannabinoids: ?50 ng/mL The results are to be used only for medical (i.e., treatment) purposes. Unconfirmed screening results must not be used for non-medical purposes (e.g., employment testing, legal testing). Lab Interpretation (test code = 55882-8) Abnormal [facility] TylerTROPONIN P8692-75-66 02:51:11* Test Item Value Reference Range Interpretation Comme nts TROPONIN I (test code = 4038094965) 0.001 ng/mL See_Comment [Automated message] The system [...] biotin. ? Lab Interpretation (test code = 68771-5) Normal [facility] TyleraPTT2021-04-30 02:41:10* Test Item Value Reference Range Interpretation Comme nts APTT Patient (test code = 3173-2) See_Comment [Automated message] The system which generated this result transmitted reference range: 23 - 38 Seconds. The reference range was not used to interpret this result as normal/abnormal. DARWIN (test code = DARWIN) The [facility] patient population mean normal value for aPTT is 30 seconds. Lab Interpretation (test code = 74310-6) Normal [facility] TylerURINALYSIS2021-04-30 02:40:40* Test Item Value Reference Range Interpretation Comme nts APPEARANCE (test code = 9570196080) Clear Clear COLOR (test code = 7683450091) Yellow Yellow PH (test code = 9597941048) 4.8-8.0 SP GRAVITY (test code = 9155032032) 1.003-1.030 GLU U QUAL (test code = 4026214620) Normal Normal BLOOD (test code = 5150199818) Negative Negative KETONES (test code = 8330325566) Negative Negative PROTEIN (test code = 2887-8) Negative Negative UROBILIN (test code = 7628386813) Normal Normal BILIRUBIN (test code = 0703868173) Negative Negative NITRITE (test code = 6985197656) Negative Negative LEUK MARC (test code = 6833065964) Negative Negative RBC/HPF (test code = 2816616146) <1 See_Comment [Automated messa ge] The system which generated this result transmitted reference range: 0 - 3 HPF. The reference range was not used to interpret this result as normal/abnormal. WBC/HPF (test code = 5414472320) <1 See_Comment [Automated messa ge] The system which generated this result transmitted reference range: 0 - 5 HPF. The reference range was not used to interpret this result as normal/abnormal. BACTERIA (test code = 6520652265) Negative Negative MUCOUS (test code = 1767919275) Slight Negative LPF A SQ EPITH (test code = 1591291423) HPF Lab Interpretation (test code = 48607-8) [facility] (43303)2020-11-04 02:40:09* Test Item Value Reference Range Interpretation Comme nts NA (test code = 7452874296) 141 mmol/L 135-145 K (test code = 7132868068) 4.1 mmol/L 3.5-5.0 CL (test code = 3584214210) 110 mmol/L 98-108 H CO2 TOTAL (test code = 1772943788) 22 mmol/L 23-31 L AGAP (test code = 9721535911) 2-16 BUN (test code = 7541555357) 15 mg/dL 7-23 GLUCOSE (test code = 0239998556) 115 mg/dL 70-110 H CREATININE (test code = 4195946836) 0.69 mg/dL 0.50-1.04 TOTAL BILI (test code = 4508373550) 0.2 mg/dL 0.1-1.1 CALCIUM (test code = 7970223911) 9.2 mg/dL 8.6-10.6 T PROTEIN (test code = 0785141023) 6.8 g/dL 6.3-8.2 ALBUMIN (test code = 7624183071) 4.1 g/dL 3.5-5.0 ALK PHOS (test code = 4122563046) 69 U/L 34-122 ALTv (test code = 1742-6) 20 U/L 5-35 AST(SGOT) (test code = 5792825822) 23 U/L 13-40 eGFR (test code = 9824998203) mL/min/1.73m2 DARWIN (test code = DARWIN) Association [...] imaging tests). Lab Interpretation (test code = 11832-6) [facility]normal [facility]IP[facility], [id number] 02:39:49* Test Item Value Reference Range Interpretation Comme nts LIPASE (test code = 9980461944) 117 U/L 0-220 Lab Interpretation (test cod e = 40463-7) Normal [facility] TylerPROTHROMBIN TIME / [id number] 02:39:08* Test Item Value Reference Range Interpretation Comme nts PROTIME PATIENT (test code = 5964-2) See_Comment [Automated [facility]] The system which generated this result transmitted reference range: 12.0 - 14.7 Seconds. The reference range was not used to interpret this result as normal/abnormal. INR (test code = 6301-6) Normal INR <1.1; Warfarin Therapeutic range 2.0 to 3.0 or 2.5 to 3.5, depending upon the indications. Lab Interpretation (test code = 53337-4) Normal [facility] TylerCBC WITH [id number] 02:30:11* Test Item Value Reference Range Interpretation Comme nts WBC (test code = 6690-2) See_Comment H [Automated [facility] [employer]] The system which generated this result transmitted reference range: 4.30 - 11.10 10*3/?L. The reference range was not used to interpret this result as normal/abnormal. RBC (test code = 789-8) See_Comment [Automated [facility]] The system which generated this result [...] 32.8 g/dL 31.6-35.1 RDW-SD (test code = 76556-3) 44.1 fL 39.0-49.9 RDW-CV (test code = 788-0) 13.8 % 12.0-15.5 PLT (test code = 777-3) See_Comment [Automated messa ge] The system which generated this result transmitted reference range: 166 - 358 10*3/?L. The reference range was not used to interpret this result as normal/abnormal. MPV (test code = 50561-1) 9.6 fL 9.5-12.9 NRBC/100 WBC (test code = 9953846128) See_Comment [Automated [employer]] The system which generated this result transmitted reference range: 0.0 - 10.0 /100 WBCs. The reference range was not used to interpret this result as normal/abnormal. NRBC x10^3 (test code = 9465911140) <0.01 See_Comment [Automated messa ge] The system which generated this result transmitted reference range: 10*3/?L. The reference range was not used to interpret this result as normal/abnormal. GRAN MAT (NEUT) % (test code = 770-8) 65.9 % IMM GRAN % (test code = 3146897161) 0.70 % LYMPH % (test code = 736-9) 25.9 % MONO % (test code = 5905-5) 5.1 % EOS % (test code = 713-8) 2.0 % BASO % (test code = 706-2) 0.4 % GRAN MAT x10^3(ANC) (test code = 4062769760) 8.82 10*3/uL 1.88-7.09 H IMM GRAN x10^3 (test code = 0295593840) 0.09 10*3/uL 0.00-0.06 H LYMPH x10^3 (test code = 731-0) 3.46 10*3/uL 1.32-3.29 H MONO x10^3 (test code = 742-7) 0.68 10*3/uL 0.33-0.92 EOS x10^3 (test code = 711-2) 0.27 10*3/uL 0.03-0.39 BASO x10^3 (test code = 704-7) 0.05 10*3/uL 0.01-0.07 Lab Interpretation (test code = 42554-5) Abnormal [facility]OVID[facility] (ID NOW RAPID TESTING)2020-09-17 16:56:05* Test Item Value Reference Range Interpretation Comme nts SARS-CoV-2 Rapid ID NOW (test code = 03052-6) Not Detected Not Detected DARWIN (test code = DARWIN) ID NOW COVID-19 As say is an isothermal nucleic acid amplification test intended for the qualitative detection of nucleic acid from SARS-CoV-2 viral RNA in nasopharyngeal (PARKING INSPECTOR) specimens. It is used under Emergency Use [...] clinically indicated. Lab Interpretation (test code = 38576-5) Normal [facility] STREP SCREEN FOR GROUP [id number] 16:54:09* Test Item Value Reference Range Interpretation Comme nts Streptococcus pyogenes (grou p A) antigen (test code = 38106-1) Negative Negative Lab Interpretation (test cod e = 36405-3) Normal [facility] 3+ VW [id number] 07:29:48 Impression: No acute fracture or dislocation. RL: 2824AFC: [id number] End of Report Exam: Left Hand, 09/07/2020 12:45 AM. Ordering Physician: Saleem EDWARD. History: Left hand crush injury. Technique: 3 views of the left hand. Comparison: None. Findings: There is no acute fracture or dislocation. Joint spaces are preserved.There is no focal soft tissue swelling. [facility], Radiant Results Inft User - 09/07/2020 1:30 AM CSTExam: Left Hand, 112:45 AM.Ordering Physician: aSleem EDWARD.History: Left hand crush injury.Technique: 3 views of the left hand.Comparison: None.Findings: There is no acute fracture or dislocation. Joint spaces are p reserved.There is no focal soft tissue swelling.IMPRESSIONImpression: No acute fracture or dislocation.RL: 2824AFC: 20915Vum of Report [facility] TylerXR FOREARM 2 VW [id number] 07:28:55No acute abnormality of the left forearm. RL: 6200AFC: 55403 Patient name: CHARITY JOHNSONGEDOB: 1980 40 years EXAMINATION: XR FOREARM 2 VW LEFT Ordering Physician: Saleem EDWARD CLINICAL HISTORY:crush injury COMPARISON:None TECHNIQUE:Frontal and lateral views of the left forearm performed FINDINGS:No fracture or dislocation identified. No joint space narrowing. No osseouslesions. No elbow joint effusion. Soft tissues are intact. [facility], Radiant Results Inft User - 09/07/2020 1:29 AM CSTPatient name: CAHRITY MONROYOB: 1980 40 years EXAMINATION: XR FOREARM 2 VW LEFTOrdering Physician: Saleem EDWARD CLINICAL HISTORY:crush injury COMPARISON:NoneTECHNIQUE:Frontal and lateral views of the left forearm performedFINDINGS:No fracture or dislocation identified. No joint space narrowing. No osseouslesions. No elbow joint effusion. Soft tissues are intact.IMPRESSIONNo acute abnormality of the left forearm.RL: 6200AFC: 90374 [facility]06[facility]* Test Item Value Reference Range Interpretation Comme nts APPEARANCE (test code = 9560604812) Hazy Clear A COLOR (test code = 1372150139) Yellow Yellow PH (test code = 3192790666) 4.8-8.0 SP GRAVITY (test code = 5499105494) 1.003-1.030 GLU U QUAL (test code = 3603225569) Normal Normal BLOOD (test code = 5079352003) Negative Negative KETONES (test code = 8809512921) Negative Negative PROTEIN (test code = 2887-8) Negative Negative UROBILIN (test code = 5290891263) Normal Normal BILIRUBIN (test code = 5879151730) Negative Negative NITRITE (test code = 3804147658) Negative Negative LEUK MARC (test code = 0671305372) Negative Negative RBC/HPF (test code = 0161204028) See_Comment [Automated messa ge] The system which generated this result transmitted reference range: 0 - 3 HPF. The reference range was not used to interpret this result as normal/abnormal. WBC/HPF (test code = 0219633582) <1 See_Comment [Automated messa ge] The system which generated this result transmitted reference range: 0 - 5 HPF. The reference range was not used to interpret this result as normal/abnormal. BACTERIA (test code = 0372548911) Moderate Negative A SQ EPITH (test code = 1276065883) HPF Lab Interpretation (test code = 14514-9) Abnormal [facility] with Zaskfyzrvwvi4496-16-27 08:50:00* Test Item Value Reference Range Interpretation [...] 34.0 g/dL 31.6-35.1 RDW-SD (test code = 59314-8) 42.6 fL 39-49.9 RDW-CV (test code = 788-0) 13.6 % 12-15.5 PLT (test code = 777-3) See_Comment H [Automated messa ge] The system which generated this result transmitted reference range: 166 - 358 10*3/?L. The reference range was not used to interpret this result as normal/abnormal. MPV (test code = 85808-3) 9.7 fL 9.5-12.9 NRBC/100 WBC (test code = 4036221805) See_Comment [Automated [employer]] The system which generated this result transmitted reference range: 0.0 - 10.0 /100 WBCs. The reference range was not used to interpret this result as normal/abnormal. NRBC x10^3 (test code = 8897172546) <0.01 See_Comment [Automated messa ge] The system which generated this result transmitted reference range: 10*3/?L. The reference range was not used to interpret this result as normal/abnormal. GRAN MAT (NEUT) % (test code = 770-8) 49.7 % IMM GRAN % (test code = 4167281657) 0.50 % LYMPH % (test code = 736-9) 41.0 % MONO % (test code = 5905-5) 6.5 % EOS % (test code = 713-8) 1.9 % BASO % (test code = 706-2) 0.4 % GRAN MAT x10^3(ANC) (test code = 2485716912) 6.39 10*3/uL 1.88-7.09 IMM GRAN x10^3 (test code = 0098857302) 0.07 10*3/uL 0-0.06 H LYMPH x10^3 (test code = 731-0) 5.27 10*3/uL 1.32-3.29 H MONO x10^3 (test code = 742-7) 0.84 10*3/uL 0.33-0.92 EOS x10^3 (test code = 711-2) 0.24 10*3/uL 0.03-0.39 BASO x10^3 (test code = 704-7) 0.05 10*3/uL 0.01-0.07 Lab Interpretation (test code = 93752-0) Abnormal [facility] TylerPO[facility] Svre0574-08-33 08:45:00* Test Item Value Reference Range Interpretation Comme nts POCT PREG (test code = 1605) neg On board controls acceptable with C Line (test code = 3574) yes POCT PREG LOT # (test code = 3575) [id number] POCT PREG TEST DATE ( test code = 3576) 04/06/2022 Lab Interpretation (test cod e = 65623-7) Normal [facility] TylerComplete Metabolic Nasgd1186-14-02 08:30:00* Test Item Value Reference Range Interpretation Comme nts NA (test code = 1425934061) 137 mmol/L 135-145 K (test code = 8421630116) 3.3 mmol/L 3.5-5 L CL (test code = 6535017436) 102 mmol/L 98-108 CO2 TOTAL (test code = 7924379246) 24 mmol/L 23-31 AGAP (test code = 8104610750) 2-16 BUN (test code = 8319655723) 9 mg/dL 7-23 GLUCOSE (test code = 2811285452) 116 mg/dL 70-110 H CREATININE (test code = 7950834451) 0.48 mg/dL 0.5-1.04 L TOTAL BILI (test code = 5300982157) 0.3 mg/dL 0.1-1.1 CALCIUM (test code = 1573299517) 9.4 mg/dL 8.6-10.6 T PROTEIN (test code = 6459801985) 7.0 g/dL 6.3-8.2 ALBUMIN (test code = 6475787467) 4.3 g/dL 3.5-5 ALK PHOS (test code = 3223118814) 127 U/L 34-122 H ALTv (test code = 1742-6) 87 U/L 5-35 H AST(SGOT) (test code = 9452380024) 34 U/L 13-40 eGFR Calculation (Non-) (test code = 9729947286) mL/min/1.73m2 eGFR Calculation () (test code = 4629884783) mL/min/1.73m2 DARWIN (test code = DARWIN) Association [...] imaging tests). Lab Interpretation (test code = 64510-5) Abnormal [facility] TylerLipase, Zihof8105-02-26 08:30:00* Test Item Value Reference Range Interpretation Comme nts LIPASE (test code = 7923054620) 297 U/L 0-220 H Lab Interpretation (test cod e = 59379-0) Abnormal [facility] TylerURINALYSIS2021-02-07 19:25:00* Test Item Value Reference Range Interpretation Comme nts APPEARANCE (test code = 4310083454) Clear Clear COLOR (test code = 4013578769) Straw Yellow A PH (test code = 4920916927) 4.8-8.0 SP GRAVITY (test code = 7152612254) 1.003-1.030 GLU U QUAL (test code = 0506380691) Normal Normal BLOOD (test code = 3959806283) 1+ Negative A KETONES (test code = 7232666469) Negative Negative PROTEIN (test code = 2887-8) Negative Negative UROBILIN (test code = 0541875706) Normal Normal BILIRUBIN (test code = 1665861918) Negative Negative NITRITE (test code = 1241427139) Negative Negative LEUK MARC (test code = 8255110526) Negative Negative RBC/HPF (test code = 3257607604) See_Comment [Automated [facility] [employer]] The system which generated this result transmitted reference range: 0 - 3 HPF. The reference range was not used to interpret this result as normal/abnormal. WBC/HPF (test code = 8408980974) <1 See_Comment [Automated [employer]] The system which generated this result transmitted reference range: 0 - 5 HPF. The reference range was not used to interpret this result as normal/abnormal. BACTERIA (test code = 0469212641) Few Negative A MUCOUS (test code = 6955714604) Slight Negative LPF A SQ EPITH (test code = 2147843275) HPF Lab Interpretation (test code = 32546-3) Abnormal [facility] G4786-34-02 19:09:00* Test Item Value Reference Range Interpretation Comme nts TROPONIN I (test code = 6437833523) <0.012 See_Comment [Automated message] The system which [...] biotin. ? Lab Interpretation (test code = 46714-7) Normal [facility] - DRUG SCREEN [id number] 19:09:00* Test Item Value Reference Range Interpretation Comme nts BENZO U (test code = 5637539564) Presumptive Positive Negative A ROSA U (test code = 3028421505) Negative Negative AMPHET (test code = 9036848046) Negative Negative THC (test code = 1262318530) Negative Negative METHADONE (test code = 5391648868) Negative Negative Meth U (test code = 5817095678) Negative Negative OPIATES (test code = 7386601833) Negative Negative Cocaine Metabolite (test code = 5079024258) Negative Negative PROPOXY (test code = 5798966918) Negative Negative Tric U (test code = 2228025024) Negative Negative PCP (test code = 3360163233) Negative Negative OXYCOD (test code = 3455086573) Negative Negative DARWIN (test code = DARWIN) [...] legal testing). Lab Interpretation (test code = 02267-0) Abnormal [facility] TylerCOMP. METABOLIC PANEL (98650)2020-08-14 19:01:00* Test Item Value Reference Range Interpretation Comme nts NA (test code = 2939115007) 138 mmol/L 135-145 K (test code = 2393151120) 4.5 mmol/L 3.5-5 CL (test code = 7317124684) 106 mmol/L 98-108 CO2 TOTAL (test code = 6319793385) 21 mmol/L 23-31 L AGAP (test code = 9637477323) 2-16 BUN (test code = 0817845482) 13 mg/dL 7-23 GLUCOSE (test code = 1147584457) 97 mg/dL 70-110 CREATININE (test code = 3954667655) 0.48 mg/dL 0.5-1.04 L TOTAL BILI (test code = 8651236263) 0.4 mg/dL 0.1-1.1 CALCIUM (test code = 1079079508) 9.1 mg/dL 8.6-10.6 T PROTEIN (test code = 7468812243) 7.5 g/dL 6.3-8.2 ALBUMIN (test code = 6892245073) 4.3 g/dL 3.5-5 ALK PHOS (test code = 0393898138) 62 U/L 34-122 ALTv (test code = 1742-6) 19 U/L 5-35 AST(SGOT) (test code = 9593644036) 26 U/L 13-40 eGFR Calculation (Non-) (test code = 2878224707) mL/min/1.73m2 eGFR Calculation () (test code = 2645750413) mL/min/1.73m2 DARWIN (test code = DARWIN) Association [...] imaging tests). Lab Interpretation (test code = 70919-5) [facility]normal [facility] TylerLIPASE2021-02-07 19:01:00* Test Item Value Reference Range Interpretation Comme nts LIPASE (test code = 9200865977) 76 U/L 0-220 Lab Interpretation (test cod e = 50999-1) Normal [facility] WITH [id number] 18:47:00* Test Item Value Reference Range Interpretation Comme nts WBC (test code = 6690-2) See_Comment H [Automated [employer]] The system which generated this result transmitted reference range: 4.30 - 11.10 10*3/?L. The reference range was not used to interpret this result as normal/abnormal. RBC (test code = 789-8) See_Comment [Automated [employer]] The system which generated this result transmitted [...] 34.3 g/dL 31.6-35.1 RDW-SD (test code = 89607-6) 42.0 fL 39-49.9 RDW-CV (test code = 788-0) 13.4 % 12-15.5 PLT (test code = 777-3) See_Comment [Automated [facility] [employer] ge] The system which generated this result transmitted reference range: 166 - 358 10*3/?L. The reference range was not used to interpret this result as normal/abnormal. MPV (test code = 03750-2) 9.9 fL 9.5-12.9 NRBC/100 WBC (test code = 0013987159) See_Comment [Automated [employer]] The system which generated this result transmitted reference range: 0.0 - 10.0 /100 WBCs. The reference range was not used to interpret this result as normal/abnormal. NRBC x10^3 (test code = 9699937597) <0.01 See_Comment [Automated [facility] [employer] ge] The system which generated this result transmitted reference range: 10*3/?L. The reference range was not used to interpret this result as normal/abnormal. GRAN MAT (NEUT) % (test code = 770-8) 60.1 % IMM GRAN % (test code = 9108733096) 0.40 % LYMPH % (test code = 736-9) 31.3 % MONO % (test code = 5905-5) 6.0 % EOS % (test code = 713-8) 1.9 % BASO % (test code = 706-2) 0.3 % GRAN MAT x10^3(ANC) (test code = 7443926171) 6.96 10*3/uL 1.88-7.09 IMM GRAN x10^3 (test code = 1682630709) 0.05 10*3/uL 0-0.06 LYMPH x10^3 (test code = 731-0) 3.62 10*3/uL 1.32-3.29 H MONO x10^3 (test code = 742-7) 0.69 10*3/uL 0.33-0.92 EOS x10^3 (test code = 711-2) 0.22 10*3/uL 0.03-0.39 BASO x10^3 (test code = 704-7) 0.04 10*3/uL 0.01-0.07 Lab Interpretation (test code = 68755-7) Abnormal [facility] CHEST 1 [id number] 18:17:08No acute cardiopulmonary abnormality. Preliminary Report Dictated by Resident: dAam Malin MD., have reviewed this study and [...] reviewed this study and agree with theabove report.[facility] TylerLactic Acid Whole Yphnw9838-22-02 18:11:00* Test Item Value Reference Range Interpretation Comme nts LACTIC ACID (test code = 0225990891) 1.95 mmol/L 0.5-2.2 Lab Interpretation (test cod e = 00777-3) Normal [facility] Tyler[facility] ABDOMEN PELVIS WO YZTNXOAB7522-41-40 05:45:24No acute abdominopelvic abnormality. No urolithiasis. 2.5 [...] reviewed this study and agree with the abovereport.[facility] TylerPODC [id number] 03:10:00* Test Item Value Reference Range Interpretation Comme [facility] POCT PREG (test code = 1605) Negative On board controls acceptable with C Line (test code = 3574) Present POCT PREG LOT # (test code = 3575) [id number] POCT PREG TEST DATE ( test code = 3576) 03/07/2022 Lab Interpretation (test cod e = 47009-0) Normal [facility] with Skhtiexyoydl4477-68-91 03:05:00* Test Item Value Reference Range Interpretation [...] 34.7 g/dL 31.6-35.1 RDW-SD (test code = 39570-5) 42.0 fL 39-49.9 RDW-CV (test code = 788-0) 13.5 % 12-15.5 PLT (test code = 777-3) See_Comment [Automated message] The system which generated this result transmitted reference range: 166 - 358 10*3/?L. The reference range was not used to interpret this result as normal/abnormal. MPV (test code = 77650-4) 9.8 fL 9.5-12.9 NRBC/100 WBC (test code = 6239523841) See_Comment [Automated message] The system which generated this result transmitted reference range: 0.0 - 10.0 /100 WBCs. The reference range was not used to interpret this result as normal/abnormal. NRBC x10^3 (test code = 4692468956) <0.01 See_Comment [Automated message] The system which generated this result transmitted reference range: 10*3/?L. The reference range was not used to interpret this result as normal/abnormal. GRAN MAT (NEUT) % (test code = 770-8) 66.2 % IMM GRAN % (test code = 0153923135) 0.60 % LYMPH % (test code = 736-9) 25.4 % MONO % (test code = 5905-5) 5.6 % EOS % (test code = 713-8) 1.9 % BASO % (test code = 706-2) 0.3 % GRAN MAT x10^3(ANC) (test code = 8233932773) 10.64 10*3/uL 1.88-7.09 H IMM GRAN x10^3 (test code = 0767994893) 0.09 10*3/uL 0-0.06 H LYMPH x10^3 (test code = 731-0) 4.09 10*3/uL 1.32-3.29 H MONO x10^3 (test code = 742-7) 0.90 10*3/uL 0.33-0.92 EOS x10^3 (test code = 711-2) 0.31 10*3/uL 0.03-0.39 BASO x10^3 (test code = 704-7) 0.05 10*3/uL 0.01-0.07 Lab Interpretation (test code = 18242-9) Abnormal [facility] TylerUrinalysis2021-02-04 02:56:00* Test Item Value Reference Range Interpretation Comme nts APPEARANCE (test code = 5786211927) Hazy Clear A COLOR (test code = 0978937137) Yellow Yellow PH (test code = 5485120331) 4.8-8.0 SP GRAVITY (test code = 1787811889) 1.003-1.030 GLU U QUAL (test code = 0002971975) Normal Normal BLOOD (test code = 3232366807) Negative Negative KETONES (test code = 2736392913) Negative Negative PROTEIN (test code = 2887-8) Negative Negative UROBILIN (test code = 1883499888) Normal Normal BILIRUBIN (test code = 2874479999) Negative Negative NITRITE (test code = 9287477757) Negative Negative LEUK MARC (test code = 3385697114) Negative Negative RBC/HPF (test code = 4224205198) See_Comment [Automated [facility] [employer] ge] The system which generated this result transmitted reference range: 0 - 3 HPF. The reference range was not used to interpret this result as normal/abnormal. WBC/HPF (test code = 0520252228) See_Comment [Automated [facility] [employer] ge] The system which generated this result transmitted reference range: 0 - 5 HPF. The reference range was not used to interpret this result as normal/abnormal. BACTERIA (test code = 9677765847) Few Negative A MUCOUS (test code = 2037451796) Slight Negative LPF A SQ EPITH (test code = 4588904568) HPF YEAST BUD (test code = 4851702915) See_Comment H [Automated messa ge] The system which generated this result transmitted reference range: <=1 HPF. The reference range was not used to interpret this result as normal/abnormal. Lab Interpretation (test code = 14678-3) Abnormal [facility] TylerTroponin [id number] 02:24:00* Test Item Value Reference Range Interpretation Comme nts TROPONIN I (test code = 9804847653) <0.012 See_Comment [Automated message] The system which [...] biotin. ? Lab Interpretation (test code = 94055-5) Normal [facility] TylerCOVID[facility] (ID NOW RAPID TESTING)2020-08-11 02:15:00* Test Item Value Reference Range Interpretation Comme nts SARS-CoV-2 Rapid ID NOW (test code = 54158-1) Not Detected Not Detected DARWIN (test code = DARWIN) ID NOW COVID-19 As say is an isothermal nucleic acid amplification test intended for the qualitative detection of nucleic acid from SARS-CoV-2 viral RNA in nasopharyngeal (PARKING INSPECTOR) specimens. It is used under Emergency Use [...] clinically indicated. Lab Interpretation (test code = 19279-6) Normal [facility] Metabolic Panel (NA, K, CL, CO2, GLUCOSE, BUN, CREATININE, CA)2020-08-11 02:13:00* Test Item Value Reference Range Interpretation Comme nts NA (test code = 9305625656) 137 mmol/L 135-145 K (test code = 1352744019) 4.0 mmol/L 3.5-5 CL (test code = 7280524951) 107 mmol/L 98-108 CO2 TOTAL (test code = 9127388339) 19 mmol/L 23-31 L AGAP (test code = 8880643882) 2-16 BUN (test code = 0502483989) 10 mg/dL 7-23 GLUCOSE (test code = 1204735926) 106 mg/dL 70-110 CREATININE (test code = 6096623523) 0.47 mg/dL 0.5-1.04 L CALCIUM (test code = 4491718337) 9.2 mg/dL 8.6-10.6 eGFR Calculation (Non-) (test code = 7494119439) mL/min/1.73m2 eGFR Calculation () (test code = 4934900909) mL/min/1.73m2 DARWIN (test code = DARWIN) Association [...] imaging tests). Lab Interpretation (test code = 17996-0) Abnormal [facility] TylerHepatic Function Panel (ALB, T.PRO, BILI T, BU/BC, ALT, AST, ALK PHOS)2020-08-11 02:13:00* Test Item Value Reference Range Interpretation Comme nts TOTAL BILI (test code = 8374730498) 0.4 mg/dL 0.1-1.1 BILI UNCON (test code = 4686833846) 0.3 mg/dL 0.1-1.1 BILI CONJ (test code = 7517813069) 0.0 mg/dL 0-0.3 T PROTEIN (test code = 9304099617) 7.5 g/dL 6.3-8.2 ALBUMIN (test code = [id number]) 4.4 g/dL 3.5-5 ALK PHOS (test code = 0279690579) 48 U/L 34-122 ALTv (test code = 1742-6) 12 U/L 5-35 AST(SGOT) (test code = 9938306025) 22 U/L 13-40 Lab Interpretation (test cod e = 81490-9) [facility] Tyler[facility] [id number] 02:13:00* Test Item Value Reference Range Interpretation Comme nts LIPASE (test code = 1407429803) 78 U/L 0-220 Lab Interpretation (test cod e = 84695-7) Normal [facility] TylerLactic Acid Whole [id number] 02:05:00* Test Item Value Reference Range Interpretation Comme nts LACTIC ACID (test code = 0702085974) 1.47 mmol/L 0.5-2.2 Lab Interpretation (test cod e = 37865-3) Normal [facility] TylerXR FOREARM 2 VW [id number] 14:31:40No acute bony abnormality. Soft tissue swelling. [...] reviewed this study and agree with the abovereport.[facility]COVID[facility] (ID NOW RAPID TESTING)2020-08-07 14:18:00* Test Item Value Reference Range Interpretation Comme nts SARS-CoV-2 Rapid ID NOW (test code = 25159-2) Not Detected Not Detected DARWIN (test code = DARWIN) ID NOW COVID-19 As say is an isothermal nucleic acid amplification test intended for the qualitative detection of nucleic acid from SARS-CoV-2 viral RNA in nasopharyngeal (PARKING INSPECTOR) specimens. It is used under Emergency Use [...] clinically indicated. Lab Interpretation (test code = 56759-4) Normal [facility] TylerTROPONIN [id number] 02:54:00* Test Item Value Reference Range Interpretation Comme nts TROPONIN I (test code = 3575372453) <0.012 See_Comment [Automated message] The system which [...] biotin. ? Lab Interpretation (test code = 23986-7) Normal [facility] TylerLIPASE2020-12-25 02:37:00* Test Item Value Reference Range Interpretation Comme nts LIPASE (test code = 0455764630) 76 U/L 0-220 Lab Interpretation (test cod e = 83963-5) Normal [facility] TylerURINALYSIS2020-12-25 01:54:00* Test Item Value Reference Range Interpretation Comme nts APPEARANCE (test code = 6674919781) Clear Clear COLOR (test code = 9917807521) Straw Yellow A PH (test code = 6046202248) 4.8-8.0 SP GRAVITY (test code = 3561088768) 1.003-1.030 GLU U QUAL (test code = 8412892492) Normal Normal BLOOD (test code = 0496523900) 3+ Negative A KETONES (test code = 8994308485) Negative Negative PROTEIN (test code = 2887-8) Negative Negative UROBILIN (test code = 2194913892) Normal Normal BILIRUBIN (test code = 3822222133) Negative Negative NITRITE (test code = 9223866202) Negative Negative LEUK MARC (test code = 0980501169) Negative Negative RBC/HPF (test code = 9991961874) See_Comment [Automated messa ge] The system which generated this result transmitted reference range: 0 - 3 HPF. The reference range was not used to interpret this result as normal/abnormal. WBC/HPF (test code = 9435962255) <1 See_Comment [Automated messa ge] The system which generated this result transmitted reference range: 0 - 5 HPF. The reference range was not used to interpret this result as normal/abnormal. BACTERIA (test code = 5387662325) Few Negative A MUCOUS (test code = 3026655503) Slight Negative LPF A SQ EPITH (test code = 8084878075) HPF Lab Interpretation (test code = 52404-3) Abnormal [facility] WITH [id number] 00:57:00* Test Item Value Reference Range Interpretation Comme nts WBC (test code = 6690-2) See_Comment [Automated messa ge] The system which generated this result transmitted reference range: 4.30 - 11.10 10*3/?L. The reference range was not used to interpret this result as normal/abnormal. RBC (test code = 789-8) See_Comment [Automated [facility] ge] The system which generated this result [...] 34.0 g/dL 31.6-35.1 RDW-SD (test code = 10268-7) 41.7 fL 39-49.9 RDW-CV (test code = 788-0) 13.2 % 12-15.5 PLT (test code = 777-3) See_Comment [Automated messa ge] The system which generated this result transmitted reference range: 166 - 358 10*3/?L. The reference range was not used to interpret this result as normal/abnormal. MPV (test code = 21435-0) 9.4 fL 9.5-12.9 L NRBC/100 WBC (test code = 5484218883) See_Comment [Automated [employer]] The system which generated this result transmitted reference range: 0.0 - 10.0 /100 WBCs. The reference range was not used to interpret this result as normal/abnormal. NRBC x10^3 (test code = 8700503189) <0.01 See_Comment [Automated messa ge] The system which generated this result transmitted reference range: 10*3/?L. The reference range was not used to interpret this result as normal/abnormal. GRAN MAT (NEUT) % (test code = 770-8) 51.8 % IMM GRAN % (test code = 7329146223) 0.50 % LYMPH % (test code = 736-9) 40.7 % MONO % (test code = 5905-5) 4.0 % EOS % (test code = 713-8) 2.5 % BASO % (test code = 706-2) 0.5 % GRAN MAT x10^3(ANC) (test code = 6784810328) 5.38 10*3/uL 1.88-7.09 IMM GRAN x10^3 (test code = 3257443538) 0.05 10*3/uL 0-0.06 LYMPH x10^3 (test code = 731-0) 4.22 10*3/uL 1.32-3.29 H MONO x10^3 (test code = 742-7) 0.42 10*3/uL 0.33-0.92 EOS x10^3 (test code = 711-2) 0.26 10*3/uL 0.03-0.39 BASO x10^3 (test code = 704-7) 0.05 10*3/uL 0.01-0.07 Lab Interpretation (test code = 42051-1) Abnormal [facility] TylerADC,CLC OR L[facility] ONLY - INFLUENZA A & B DIRECT [id number] 00:51:00* Test Item Value Reference Range Interpretation Comme nts Influenza A (test code = 84247-2) Negative Negative Influenza B (test code = 98501-9) Negative Negative Lab Interpretation (test cod e = 02872-5) Normal [facility] TylerPOCT [id number] 00:51:00* Test Item Value Reference Range Interpretation Comme nts POCT PREG (test code = 1605) negative On board controls acceptable with C Line (test code = 3574) present POCT PREG LOT # (test code = 3575) [id number] POCT PREG TEST DATE ( test code = 3576) 11/04/2021 Lab Interpretation (test cod e = 94525-3) Normal [facility] TylerTROPONIN [id number] 00:46:00* Test Item Value Reference Range Interpretation Comme nts TROPONIN I (test code = 4439055400) <0.012 See_Comment [Automated message] The system which [...] biotin. ? Lab Interpretation (test code = 08415-8) Normal [facility] TylerBASI METABOLIC PANEL (NA, K, CL, CO2, GLUCOSE, BUN, CREATININE, CA)2020-07-01 00:46:00* Test Item Value Reference Range Interpretation Comme nts NA (test code = 5311848806) 141 mmol/L 135-145 K (test code = 9548128956) 3.8 mmol/L 3.5-5 CL (test code = 6488617385) 108 mmol/L 98-108 CO2 TOTAL (test code = 0449686773) 25 mmol/L 23-31 AGAP (test code = 8915831062) 2-16 BUN (test code = 4661813922) 10 mg/dL 7-23 GLUCOSE (test code = 1040733412) 92 mg/dL 70-110 CREATININE (test code = 4898776045) 0.58 mg/dL 0.5-1.04 CALCIUM (test code = 3520451814) 9.4 mg/dL 8.6-10.6 eGFR Calculation (Non-) (test code = 7608692532) mL/min/1.73m2 eGFR Calculation () (test code = 2955239421) mL/min/1.73m2 DARWIN (test code = DARWIN) Association [...] or urine or abnormalities in imaging tests). [facility] TylerN-TERMINAL XDQ-[id number] 00:43:00* Test Item Value Reference Range Interpretation Comme nts NT-proBNP (test code = 4078345454) 332 pg/mL See_Comment H [Automated message] The system which generated this result transmitted reference range: <=125. The reference range was not used to interpret this result as normal/abnormal. DARWIN (test code = DARWIN) Biotin has been reported to cause a negative bias, interpret results relative to patient's use of biotin. Lab Interpretation (test code = 78781-6) Abnormal [facility] TylerXR CHEST 1 [id number] 00:20:50No acute cardiopulmonary abnormality Preliminary Report Dictated [...] is normal.No acute osseous abnormality is identified. [facility], Radiant Results Inft User - 06/30/2020 6:22 [...] reviewed this study and agree with the abovereport.[facility] CERVICAL SPINE WO [id number] 23:23:[address] EXAMINATION: CT [...] apices are unremarkable. [facility], Radiant Results Inft -06/28/2020 5:24 PM CSTEXAMINATION: CT CERVICAL SPINE [...] lung apices are unremarkable. IMPRESSIONUnremarkable cervical spine CT.[facility] TylerPODC Tydt5374-47-09 01:50:00* Test Item Value Reference Range Interpretation Comme nts POCT PREG (test code = 1605) Negative On board controls acceptable with C Line (test code = 3574) Present POCT PREG LOT # (test code = 3575) [id number] POCT PREG TEST DATE ( test code = 3576) 10/05/2021 Lab Interpretation (test cod e = 24241-1) Normal [facility] TylerTroponin [id number] 01:24:00* Test Item Value Reference Range Interpretation Comme nts TROPONIN I (test code = 5001106872) <0.012 See_Comment [Automated message] The system which [...] biotin. ? Lab Interpretation (test code = 15946-5) Normal [facility] TylerCOVID[facility] (ID NOW RAPID TESTING)2020-06-13 01:22:00* Test Item Value Reference Range Interpretation Comme nts SARS-CoV-2 Rapid ID NOW (test code = 71859-5) Not Detected Not Detected DARWIN (test code = DARWIN) ID NOW COVID-19 As say is an isothermal nucleic acid amplification test intended for the qualitative detection of nucleic acid from SARS-CoV-2 viral RNA in nasopharyngeal (PARKING INSPECTOR) specimens. It is used under Emergency Use [...] clinically indicated. Lab Interpretation (test code = 70903-0) Normal [facility] TylerD-[id number] 01:16:00* Test Item Value Reference Range Interpretation Comments D-DIMER (test code = 9163139240) See_Comment [Automated message] The system which generated [...] a diagnosis. Lab Interpretation (test code = 75119-9) Normal [facility] TylerBasi Metabolic Panel (NA, K, CL, CO2, GLUCOSE, BUN, CREATININE, CA)2020-06-13 01:13:00* Test Item Value Reference Range Interpretation Comme nts NA (test code = 0783482374) 137 mmol/L 135-145 K (test code = 5536118191) 4.2 mmol/L 3.5-5 CL (test code = 7478365328) 103 mmol/L 98-108 CO2 TOTAL (test code = 4879344641) 25 mmol/L 23-31 AGAP (test code = 6529706007) 2-16 BUN (test code = 4646724476) 11 mg/dL 7-23 GLUCOSE (test code = 7040666747) 98 mg/dL 70-110 CREATININE (test code = 0720769161) 0.52 mg/dL 0.5-1.04 CALCIUM (test code = 6649498859) 10.3 mg/dL 8.6-10.6 eGFR Calculation (Non-) (test code = 6510613946) mL/min/1.73m2 eGFR Calculation () (test code = 3697252040) mL/min/1.73m2 DARWIN (test code = DARWIN) Association [...] or urine or abnormalities in imaging tests). [facility] TylerHepatic Function Panel (ALB, T.PRO, BILI T, BU/BC, ALT, AST, ALK PHOS)2020-06-13 01:13:00* Test Item Value Reference Range Interpretation Comme nts TOTAL BILI (test code = 7956761491) 0.5 mg/dL 0.1-1.1 BILI UNCON (test code = 5609112797) 0.3 mg/dL 0.1-1.1 BILI CONJ (test code = 6898164536) 0.0 mg/dL 0-0.3 T PROTEIN (test code = 3623225242) 7.3 g/dL 6.3-8.2 ALBUMIN (test code = 2252049787) 4.2 g/dL 3.5-5 ALK PHOS (test code = 1952561220) 85 U/L 34-122 ALTv (test code = 1742-6) 66 U/L 5-35 H AST(SGOT) (test code = 3461616169) 32 U/L 13-40 Lab Interpretation (test cod e = 44933-3) Abnormal [facility] TylerLipase [id number] 01:13:00* Test Item Value Reference Range Interpretation Comme nts LIPASE (test code = 8496008608) 60 U/L 0-220 Lab Interpretation (test cod e = 19198-1) Normal [facility] TylerUrinalysis2020-12-07 01:03:00* Test Item Value Reference Range Interpretation Comme nts APPEARANCE (test code = 0193727714) Clear Clear COLOR (test code = 0595860611) Straw Yellow A PH (test code = 5965363367) 4.8-8.0 SP GRAVITY (test code = 9368901609) 1.003-1.030 GLU U QUAL (test code = 7322025262) Normal Normal BLOOD (test code = 1747833869) Negative Negative KETONES (test code = 4779426842) Negative Negative PROTEIN (test code = 2887-8) Negative Negative UROBILIN (test code = 0135006004) Normal Normal BILIRUBIN (test code = 7519437017) Negative Negative NITRITE (test code = 8887950843) Negative Negative LEUK MARC (test code = 0097030706) Negative Negative RBC/HPF (test code = 7067336535) See_Comment [Automated [facility] ge] The system which generated this result transmitted reference range: 0 - 3 HPF. The reference range was not used to interpret this result as normal/abnormal. WBC/HPF (test code = 0629162119) See_Comment [Automated [facility] ge] The system which generated this result transmitted reference range: 0 - 5 HPF. The reference range was not used to interpret this result as normal/abnormal. BACTERIA (test code = 0190465800) Negative Negative MUCOUS (test code = 8150142659) Slight Negative LPF A SQ EPITH (test code = 4127174608) HPF Lab Interpretation (test code = 37922-6) Abnormal [facility] with Rsxpvvycyqrc2476-36-20 00:55:00* Test Item Value Reference Range Interpretation [...] 34.5 g/dL 31.6-35.1 RDW-SD (test code = 98435-9) 42.5 fL 39-49.9 RDW-CV (test code = 788-0) 13.5 % 12-15.5 PLT (test code = 777-3) See_Comment [Automated messa ge] The system which generated this result transmitted reference range: 166 - 358 10*3/?L. The reference range was not used to interpret this result as normal/abnormal. MPV (test code = 72372-5) 10.1 fL 9.5-12.9 NRBC/100 WBC (test code = 4930478647) See_Comment [Automated [employer]age] The system which generated this result transmitted reference range: 0.0 - 10.0 /100 WBCs. The reference range was not used to interpret this result as normal/abnormal. NRBC x10^3 (test code = 8164517789) <0.01 See_Comment [Automated messa ge] The system which generated this result transmitted reference range: 10*3/?L. The reference range was not used to interpret this result as normal/abnormal. GRAN MAT (NEUT) % (test code = 770-8) 61.9 % IMM GRAN % (test code = 0957784659) 0.60 % LYMPH % (test code = 736-9) 30.6 % MONO % (test code = 5905-5) 5.2 % EOS % (test code = 713-8) 1.4 % BASO % (test code = 706-2) 0.3 % GRAN MAT x10^3(ANC) (test code = 8932281553) 8.03 10*3/uL 1.88-7.09 H IMM GRAN x10^3 (test code = 5398088351) 0.08 10*3/uL 0-0.06 H LYMPH x10^3 (test code = 731-0) 3.97 10*3/uL 1.32-3.29 H MONO x10^3 (test code = 742-7) 0.68 10*3/uL 0.33-0.92 EOS x10^3 (test code = 711-2) 0.18 10*3/uL 0.03-0.39 BASO x10^3 (test code = 704-7) 0.04 10*3/uL 0.01-0.07 Lab Interpretation (test code = 86225-5) Abnormal [facility] TylerCOVID[facility] (ID NOW RAPID TESTING)2020-05-17 00:27:00* Test Item Value Reference Range Interpretation Comme nts SARS-CoV-2 Rapid ID NOW (test code = 61694-2) Not Detected Not Detected DARWIN (test code = DARWIN) ID NOW COVID-19 As say is an isothermal nucleic acid amplification test intended for the qualitative detection of nucleic acid from SARS-CoV-2 viral RNA in nasopharyngeal (PARKING INSPECTOR) specimens. It is used under Emergency Use [...] clinically indicated. Lab Interpretation (test code = 48702-5) Normal [facility] Metabolic Panel (NA, K, CL, CO2, GLUCOSE, BUN, CREATININE, CA)2020-05-17 00:00:00* Test Item Value Reference Range Interpretation Comme nts NA (test code = 5481026721) 136 mmol/L 135-145 K (test code = 6638388337) 3.6 mmol/L 3.5-5 CL (test code = 3278379695) 103 mmol/L 98-108 CO2 TOTAL (test code = 3072583070) 26 mmol/L 23-31 AGAP (test code = 4584119618) 2-16 BUN (test code = 5194682069) 13 mg/dL 7-23 GLUCOSE (test code = 1372612143) 130 mg/dL 70-110 H CREATININE (test code = 8310116232) 0.58 mg/dL 0.5-1.04 CALCIUM (test code = 9964978729) 9.9 mg/dL 8.6-10.6 eGFR Calculation (Non-) (test code = 0147088291) mL/min/1.73m2 eGFR Calculation () (test code = 6472339768) mL/min/1.73m2 DARWIN (test code = DARWIN) Association [...] imaging tests). Lab Interpretation (test code = 34466-8) Abnormal [facility] TylerHep[facility] Function Panel (ALB, T.PRO, BILI T, BU/BC, ALT, AST, ALK PHOS)2020-05-17 00:00:00* Test Item Value Reference Range Interpretation Comme nts TOTAL BILI (test code = 0760709363) 0.4 mg/dL 0.1-1.1 BILI UNCON (test code = 2022564079) 0.3 mg/dL 0.1-1.1 BILI CONJ (test code = 5935565684) 0.0 mg/dL 0-0.3 T PROTEIN (test code = 6333021940) 7.3 g/dL 6.3-8.2 ALBUMIN (test code = 6696894169) 4.3 g/dL 3.5-5 ALK PHOS (test code = 7371315828) 118 U/L 34-122 ALTv (test code = 1742-6) 119 U/L 5-35 H AST(SGOT) (test code = 2606713135) 47 U/L 13-40 H Lab Interpretation (test cod e = 84441-8) Abnormal [facility] TylerLipase Nkbwf1526-63-78 00:00:00* Test Item Value Reference Range Interpretation Comme nts LIPASE (test code = 0137178691) 70 U/L 0-220 Lab Interpretation (test cod e = 45972-2) Normal [facility] TylerCBC with Zguyqqoiuirj5345-18-88 23:49:00* Test Item Value Reference Range Interpretation Comme nts WBC (test code = 6690-2) See_Comment [Automated [facility] [employer]] The system which generated this result transmitted reference range: 4.30 - 11.10 10*3/?L. The reference range was not used to interpret this result as normal/abnormal. RBC (test code = 789-8) See_Comment [Automated [facility] ge] The system which generated this result [...] 33.3 g/dL 31.6-35.1 RDW-SD (test code = 83636-8) 42.8 fL 39-49.9 RDW-CV (test code = 788-0) 13.5 % 12-15.5 PLT (test code = 777-3) See_Comment [Automated [facility] ge] The system which generated this result transmitted reference range: 166 - 358 10*3/?L. The reference range was not used to interpret this result as normal/abnormal. MPV (test code = 97851-9) 9.8 fL 9.5-12.9 NRBC/100 WBC (test code = 5735497161) See_Comment [Automated me ssage] The system which generated this result transmitted reference range: 0.0 - 10.0 /100 WBCs. The reference range was not used to interpret this result as normal/abnormal. NRBC x10^3 (test code = 8768970242) <0.01 See_Comment [Automated me ssage] The system which generated this result transmitted reference range: 10*3/?L. The reference range was not used to interpret this result as normal/abnormal. GRAN MAT (NEUT) % (test code = 770-8) 62.5 % IMM GRAN % (test code = 6268229510) 0.50 % LYMPH % (test code = 736-9) 29.8 % MONO % (test code = 5905-5) 5.6 % EOS % (test code = 713-8) 1.1 % BASO % (test code = 706-2) 0.5 % GRAN MAT x10^3(ANC) (test code = 8031183665) 6.65 10*3/uL 1.88-7.09 IMM GRAN x10^3 (test code = 9110861855) 0.05 10*3/uL 0-0.06 LYMPH x10^3 (test code = 731-0) 3.17 10*3/uL 1.32-3.29 MONO x10^3 (test code = 742-7) 0.59 10*3/uL 0.33-0.92 EOS x10^3 (test code = 711-2) 0.12 10*3/uL 0.03-0.39 BASO x10^3 (test code = 704-7) 0.05 10*3/uL 0.01-0.07 [facility] TylerACETAMINOPHEN2020-11-08 08:24:00* Test Item Value Reference Range Interpretation Comme nts ACETAMINOP (test code = 8335071319) 21.0 ug/mL 10-30 DARWIN (test code = DARWIN) Toxic: Greater jona n 200 ug/mL @ 4 hour post ingestion or greater than 50 ug/mL @ 12 hour post ingestion Lab Interpretation (test code = 27510-2) Normal [facility] TylerETHANOL2020-11-08 06:37:00* Test Item Value Reference Range Interpretation Comme nts ALCOHOL (test code = 4907721752) <10 mg/dL DARWIN (test code = DARWIN) <10 Estgiffn93-346 Toxic>100 Depression of SENIOR NET APPLICATION DEVELOPER>400 Fatalities Reported [facility] TylerBasic Metabolic Panel (NA, K, CL, CO2, GLUCOSE, BUN, CREATININE, CA)2020-05-15 06:35:00* Test Item Value Reference Range Interpretation Comme nts NA (test code = 9525326115) 137 mmol/L 135-145 K (test code = 0561524402) 4.0 mmol/L 3.5-5 CL (test code = 0564184034) 106 mmol/L 98-108 CO2 TOTAL (test code = 7385033531) 25 mmol/L 23-31 AGAP (test code = 2725615818) 2-16 BUN (test code = 3945987315) 9 mg/dL 7-23 GLUCOSE (test code = 0532167540) 95 mg/dL 70-110 CREATININE (test code = 3887338244) 0.53 mg/dL 0.5-1.04 CALCIUM (test code = 1511349640) 9.0 mg/dL 8.6-10.6 eGFR Calculation (Non-) (test code = 6744468913) mL/min/1.73m2 eGFR Calculation () (test code = 4032748068) mL/min/1.73m2 DARWIN (test code = DARWIN) Association [...] or urine or abnormalities in imaging tests). [facility] TylerHepatic Function Panel (ALB, T.PRO, BILI T, BU/BC, ALT, AST, ALK PHOS)2020-05-15 06:35:00* Test Item Value Reference Range Interpretation Comme nts TOTAL BILI (test code = 7403519341) 0.4 mg/dL 0.1-1.1 BILI UNCON (test code = 4153449515) 0.2 mg/dL 0.1-1.1 BILI CONJ (test code = 5070010479) 0.0 mg/dL 0-0.3 T PROTEIN (test code = 7450643946) 6.3 g/dL 6.3-8.2 ALBUMIN (test code = 0489929955) 3.8 g/dL 3.5-5 ALK PHOS (test code = 7208800094) 117 U/L 34-122 ALTv (test code = 1742-6) 179 U/L 5-35 H AST(SGOT) (test code = 3600281386) 194 U/L 13-40 H Lab Interpretation (test cod e = 97543-1) Abnormal [facility] TylerLipase Dofjn2683-28-07 06:35:00* Test Item Value Reference Range Interpretation Comme [facility] LIPASE (test code = 9632335326) 92 U/L 0-220 Lab Interpretation (test cod e = 82123-4) Normal [facility] TyleraPTT2020-11-08 06:22:00* Test Item Value Reference Range Interpretation Comme nts APTT Patient (test code = 3173-2) See_Comment [Automated message] The system which generated this result transmitted reference range: 23 - 38 Seconds. The reference range was not used to interpret this result as normal/abnormal. DARWIN (test code = DARWIN) The [facility] patient population mean normal value for aPTT is 30 seconds. Lab Interpretation (test code = 72755-9) Normal [facility] TylerUrinalysis2020-11-08 06:21:00* Test Item Value Reference Range Interpretation Comme nts APPEARANCE (test code = 6167468960) Clear Clear COLOR (test code = 7015292498) Yellow Yellow PH (test code = 9520725340) 4.8-8.0 SP GRAVITY (test code = 5606726485) 1.003-1.030 GLU U QUAL (test code = 3264752798) Normal Normal BLOOD (test code = 3213931574) Negative Negative KETONES (test code = 5853674515) Negative Negative PROTEIN (test code = 2887-8) Negative Negative UROBILIN (test code = 5231974432) Normal Normal BILIRUBIN (test code = 7990712454) Negative Negative NITRITE (test code = 1992822402) Negative Negative LEUK MARC (test code = 7157408901) Negative Negative RBC/HPF (test code = 3514333461) See_Comment [Automated messa ge] The system which generated this result transmitted reference range: 0 - 3 HPF. The reference range was not used to interpret this result as normal/abnormal. WBC/HPF (test code = 7801893608) <1 See_Comment [Automated messa ge] The system which generated this result transmitted reference range: 0 - 5 HPF. The reference range was not used to interpret this result as normal/abnormal. BACTERIA (test code = 8014881501) Negative Negative MUCOUS (test code = 8097431425) Slight Negative LPF A SQ EPITH (test code = 3051665726) HPF Lab Interpretation (test code = 92082-5) Abnormal [facility] TylerProthrombin Time (PT) / DLT4953-78-01 06:20:00 * Test Item Value Reference Range [...] the indications. Lab Interpretation (test code = 32715-9) Normal [facility] / C - DRUG SCREEN QBEQGU4887-61-63 06:19:00* Test Item Value Reference Range Interpretation Comme nts BENZO U (test code = 0061326852) Presumptive Positive Negative A ROSA U (test code = 3117960152) Negative Negative AMPHET (test code = 8315772471) Negative Negative THC (test code = 4237569683) Negative Negative METHADONE (test code = 4844667332) Negative Negative Meth U (test code = 1781945135) Negative Negative OPIATES (test code = 2994392830) Negative Negative Cocaine Metabolite (test code = 6617827586) Negative Negative PROPOXY (test code = 7019463528) Negative Negative Tric U (test code = 4068976607) Negative Negative PCP (test code = 1592051805) Negative Negative OXYCOD (test code = 8163902312) Negative Negative DARWIN (test code = DARWIN) [...] legal testing). Lab Interpretation (test code = 06752-9) Abnormal [facility] with Wabuqoiirnys9106-16-45 06:07:00* Test Item Value Reference Range Interpretation Comme nts WBC (test code = 6690-2) See_Comment [Automated PVPower] The system which generated this result transmitted reference range: 4.30 - 11.10 10*3/?L. The reference range was not used to interpret this result as normal/abnormal. RBC (test code = 789-8) See_Comment [Automated PVPower] The system which generated this result transmitted [...] 34.3 g/dL 31.6-35.1 RDW-SD (test code = 57513-5) 43.4 fL 39-49.9 RDW-CV (test code = 788-0) 13.7 % 12-15.5 PLT (test code = 777-3) See_Comment [Automated messa ge] The system which generated this result transmitted reference range: 166 - 358 10*3/?L. The reference range was not used to interpret this result as normal/abnormal. MPV (test code = 71688-3) 9.7 fL 9.5-12.9 NRBC/100 WBC (test code = 4853418500) See_Comment [Automated Guide Financial ssage] The system which generated this result transmitted reference range: 0.0 - 10.0 /100 WBCs. The reference range was not used to interpret this result as normal/abnormal. NRBC x10^3 (test code = 8687045768) <0.01 See_Comment [Automated messa ge] The system which generated this result transmitted reference range: 10*3/?L. The reference range was not used to interpret this result as normal/abnormal. GRAN MAT (NEUT) % (test code = 770-8) 50.6 % IMM GRAN % (test code = 8885555690) 0.20 % LYMPH % (test code = 736-9) 42.1 % MONO % (test code = 5905-5) 5.5 % EOS % (test code = 713-8) 1.2 % BASO % (test code = 706-2) 0.4 % GRAN MAT x10^3(ANC) (test code = 1352595805) 4.31 10*3/uL 1.88-7.09 IMM GRAN x10^3 (test code = 1509484529) <0.03 0-0.06 LYMPH x10^3 (test code = 731-0) 3.58 10*3/uL 1.32-3.29 H MONO x10^3 (test code = 742-7) 0.47 10*3/uL 0.33-0.92 EOS x10^3 (test code = 711-2) 0.10 10*3/uL 0.03-0.39 BASO x10^3 (test code = 704-7) 0.03 10*3/uL 0.01-0.07 Lab Interpretation (test code = 24533-9) [id number] 05:53:00* Test Item Value Reference Range Interpretation Comme nts POCT PREG (test code = 1605) Negative On board controls acceptable with C Line (test code = 3574) Present POCT PREG LOT # (test code = 3575) HCG [id number] POCT PREG TEST DATE ( test code = 3576) 10/05/2021 Lab Interpretation (test cod e = 79844-9) Normal [facility] History and Physical Notes Date/Time Note Provider [...] 2 mg, Slow IV Push, Q4HPRN, Flako Mercado, MD, 2 mg at 02/15/23 2240 traMADoL (ULTRAM) tablet 50 mg, 50 mg, Oral, Q8HPRRogelio Rizvi Roy, MD Objective: Vitals: Vitals: 02/15/23 1911 02/15/23200802/15/23201502/15/232018 [...] acute, severe Comparison: September 11, 2021 RL: 59112 Ordering Clinician: LEEANNE WISE Technique: Axial CT [...] the ACR Incidental Findings Committee;Journal of the [employer] [employer] Volume 7, Issue 10, Pages 094-953, April 2010). CHEST 1 VW Result Date: [...] process is identified in the chest. RL: 8860 END OF REPORT Assessment and plan: Principal [...] Flako Mercado MD 02/16/2023 IM-INTERNAL MEDICINE STAFF [facility] - Health Notes <thead> Date/Time Note Provider Source 2024-06-07 02:39:24 Pt given printed and verbal discharge instructions regarding chest pain, Pt verbalized understanding of instructions, pt awake [...] amb with steady gait, in no apparent distress, NYA Delgadillo RN [facility] 2024-06-07 00:46:48 Report to Leona RAMIREZ. NYA Montelongo RN [facility] 2024-06-06 22:01:17 Patient arrived ambulatory to ED c/o chest pain that started around 1900 tonight. 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 Sharp chest pain that radiates to left shoulder. NYA Merrill RN [facility] 2024-05-28 13:02:38 Chief Complaint Patient presents with Shoulder Pain Pt complains of left shoulder pain that has been in pain for last 3 years. Pain is getting worse. No injury. No occupation. Pt has been doing PT for shoulder. She is also taking methocarbamol for pain however it is not helping. [facility] 2024-05-19 13:33:08 Patient given discharge instructions with readback, discussed prescriptions and follow up care. . Steady gait with NAD noted. NYA Davila RN [facility] 2024-05-19 11:42:01 Patient had a fall on Saturday and came into ED to be seen. Had pain meds and scan performed with no significant findings. Patient called her PCP and they told her to go to ER because she could have a concussion or just feel worse. NYA Cronin RN [facility] 2024-05-18 10:27:22 Chief Complaint Patient presents with Physical Patient is fasting. No other issues to discuss Jennifer Del Castillo MA II [facility] 2024-05-17 22:18:24 Pt given printed and verbal discharge instructions regarding fall, Pt verbalized understanding of instructions, pt awake [...] amb with steady gait, in no apparent distress, NYA Delgadillo RN [facility] 2024-05-17 20:40:54 Okay to release information to father Piyush Roca per patient NYA Atkinson RN [facility] 2024-05-17 20:18:[address] scan and brought to [facility] with RN and trauma team. Continuous cardiac monitoring and serial vital signs monitored by Santi RAMIREZ. Santi Delgadillo RN [facility] 2024-05-17 19:58:[address] scan with RN and trauma team. Continuous cardiac monitoring and serial vital signs monitored by Santi RAMIREZ. Santi Delgadillo RN [facility] 2024-05-17 18:55:00 Received report from Juliano RAMIREZ [facility] 2024-05-17 18:35:54 Report received from EMS. Trauma protocol initiated. Trauma team members at bedside, primary and secondary survey in progress. Pt placed on continuous cardiac monitoring, pulse oximetry, and serial vital signs. Wellington Dorantes RN [facility] 2024-05-17 18:31:04 Patient arrived by [facility], tripped over a floor tile and hit the occipital area. Unsure of LOC. 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 [facility] Wellington Dorantes RN [facility] 2024-05-07 21:32:31 Patient discharged to home. Patient [...] in no apparent distress. Cameron Posada RN [facility] 2024-05-07 18:45:11 Pt arrived ambulatory with complaints of lower back pain, lower abdominal pain, and dysuria since yesterday. Took Tramadol at 2pm Aline Lou RN 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- DIAGNOSIS: UTI, GASTROENTERITIS PRESCRIPTION: ZOFRAN AND MACROBID PER PRESCRIPTION DETAILS [facility]: [place] GIVEN IN ER FOLLOW UP: [...] NO PHYSICIAN MONTSERRAT TERRAZAS MD Work Phone: [address] [address] CARLOS SOLANO MD Work Phone: [address] [place] [address] ENTER NAME IN NOTES OTHER Future Procedures [...] in Observation May 11, 2023 1:16am N ov2022 1:10am CARDIOLOGY CONSULT May 11, 2023 1:16am Norm jackson 2022 1:10am Resuscitation Status May 11, 2023 [...] DISCHARGE PATIENT May 13, 2023 3:41pm Ovidio miranda 2022 Cardiac, BP, Pulse Ox Monitor June 04 8:08pm June 04, 2023 8:07pm Insert Peripheral IV Access June 04, 2023 8:08pm June 04, 2023 8:07pm Remove Clothing/Place in Gown June 04 8:08pm June 04, 2023 8:07pm 2L NC Oxygen Therapy June 04, 2023 8:08pm June 04, 2023 8:07pm VS - Adult June 04, 2023 8:08pm Novem venkat 2022 8:07pm Electrocardiogram, Complete June 04, 2023 [...] VS - Adult August 31, 2023 6:49pm Febru ann 2023 6:45pm Electrocardiogram, Complete August 31, 2023 [...] is unavailable Patient Instructions <tbody> Otitis Externa, Tmga-iy-Wxyj Allergic Rhinitis, Adult, Ea sy-to-Read Ovarian Cyst, Gddf-hf-Oflx Abdominal Pain, Adult, Easy- to-Read Renal Mass Nonspecific Chest Pain, Adul t, Lfgd-ng-Stko Acetaminophen; Hydrocodone t ablets or capsules Sucralfate tablets Pantoprazole tablets Ciprofloxacin tablets Nonspecific Chest Pain, Adul t, Whgp-bn-Eqwc Alprazolam tablets Trazodone Tablets Aspirin Tablets Urinary Tract Infection, [place] lt, Mjue-sx-Osmp Dehydration, Adult, Easy-to- Read Urinary Tract Infection, [place] lt, Bect-bw-Fzhg [facility] [id number] 20:37:07 Pt given printed and verbal discharge [...] with steady gait, in no apparent distress Renato Doan [facility] 18:50:37 Nurse Report Report given to renaot. Chief complaint, assessment findings, infusion verify and orders reviewed. Plan of care discussed. Lola Reynoso RN Lola Reynoso [facility]jqlk4742-83-63 17:27:35 Pt arrived ambulatory complains of abdominal pain and points to her left upper abdominal. Pt states that last time she had this type of pain it was pancreatitis. Reports pain started at 1300 and reports pain is 9/10 and hurts whenever she eats. Harriett Mejia [facility]Jfcurd4374-05-60 11:11:13 Chief Complaint Patient presents with Shoulder Pain Left shoulder pain with limited range of motion x 6 months, takes OTC tylenol for the pain as needed but pain is getting worse. 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 Not working currently Marbin Hcufvu5227-96-54 09:19:27 Chief Complaint Patient presents with [facility] ER follow up with admission on 12/04/2023 for chest pains. She had a stent placed by Dr. Arthur. Jennifer Del Castillo MA II Jennifer VencesMarcio Kfgbns1310-77-31 10:49:31 Chief Complaint Patient presents with Anxiety Follow up on anxiety/depression. She states that it has gotten worse since last visit. She had an appointment with [facility] this morning and it was canceled due to internet outage. Jennifer Del Castillo MA II [facility] 13:21:02 Chief Complaint Patient presents with [facility] told her she needed to go to a different doctor because they could not give her anything else Marbella Oh LVN [facility]2024-04-05 00:41:45 Pt given printed and verbal discharge [...] & in no apparent distress. Becky Rios [facility] HospitalTaybgm9032-38-61 21:25:46 Pt arrived ambulatory but states feeling like she is going to pass out, Pt placed in ED wheelchair. Pt c/o " I have pain in my back on the left side, it mark when I pee, Im nauseous, I feel like Im going to pass out and I have been crapping on myself." Shaneka Atkinson [facility]Kixxrv5324-68-77 22:58:41 Pt discharged with diagnosis of RUQ abd pain and chronic abd pain. Printed and verbal instructions reviewed with and given to pt. Prescriptions given x 2. Pt verbalized understanding of teaching, medications, and recommended follow-up. Denies questions or concerns at this time. Pt ambulatory at discharge. Appears in no apparent distress. No ataxia noted. COURSE SUPERINTENDENT Adeline Floyd [facility] HospitalVngwbe8043-22-73 19:46:03 Pt states sharp pain to the RLQ that started today around noon, pt denies any urinary symptoms, vomiting X 2 COURSE SUPERINTENDENT Razia Yost [facility]Uyvbya9901-14-65 00:14:00 Awake, alert oriented X4, respiratory even [...] noted upon discharge Pt ambulated to the [facility] with steady gait Razia Yost [facility]Kgnaoq5562-73-08 23:06:10 Received report from Evy RAMIREZ, assuming care. Brandy Lou [facility] HospitalObowdb4911-76-61 22:38:[address] scan done. Patient states LQ abdominal pain now 01/14. T Guanaco Caceres [place] [id number] 22:00:00 POCT test negative. Patient states RLQ abdominal pain improved briefly with IV Morphine administration, then returned at 03/17. Dr Richards informed, and patient medicated as ordered with Fentanyl 75 mcg slow IVP. [place] [address]21-09-02 21:00:00 Medicated as per order with Zofran 4 mg slow IVP and Morphine 4 mg slow IVP for RLQ abdominal pain 03/17. [place] [address]21-09-02 20:17:52 Pt arrived ambulatory with complaints of RLQ abd pain since yesterday. Pt reports N/V/D. Last took Tylenol at 3pm. Denies dysuria but reports frequency. Hx: Anxiety, Depression, PTSD, Pancreatitis T Aline Lou [place] [id number] 01:30:22 Discharged home ambulatory. Home instructions given. T John Ventura [place] 31229-08-25 19:32:44 Pt CO of N/V, left lower back pain, painful urination and diarrhea since yesterday, states she was admitted last week for pancreatitis. Pt already promethazine tablets today with no relief. Jean Carlos Alegria RNUTMB - Shaepi7454-39-41 19:22:00 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 RL: 460 AFC: 04035 Lab Results: Lab Results CBC WITH DIFF [...] POCT PREG TEST DATE COMP. METABOLIC PANEL (43873) NA 139 135 - 145 mmol/L K [...] CONTRAST CBC WITH DIFF COMP. METABOLIC PANEL (89985) LIPASE URINALYSIS POCT TEST Orders Placed This [...] signed by: Olivia Garcia MD 03/02/23 0122 [facility]rabbp6592[facility]49-43 02:22:03 Pt given printed and verbal discharge [...] leaving in no apparent distress, Linda Ayala [facility]Jrftbn9647-61-68 22:53:36 Pt arrived ambulatory with complaints of [...] might be from her anxiety. Aline Lou [place] [id number] 15:59:15 Problem: Pain Goal: Control of pain [...] Goal: Effective communication Outcome: Adequate for discharge [facility] Beata Lamar [facility] HospitalOcqiui8839-80-39 00:21:19 Problem: Pain Goal: Control of pain [...] Goal: Effective communication Outcome: Progressing as expected [facility]2023-08-12 16:55:55 Problem: Pain Goal: Control of pain [...] Goal: Effective communication Outcome: Progressing as expected [place] [address]-08-12 03:35:03 Problem: Pain Goal: Control of pain [...] Goal: Effective communication Outcome: Progressing as expected [place] [address]-08-11 19:41:18 Nurse Report Report given to JAMES Gatica. Chief complaint, assessment findings, infusion verify and orders reviewed. Plan of care discussed with both nurses. Stacie Man RN [facility] Stacie Man [facility] HospitalCsvjgd0824-80-03 13:40:01 CC: patient presents to the ER [...] amb without assistance. Appears in no distress. [place] 254643-08-11 13:23:00Associated Order(s): EKG-12 Lead ROUTINE ONCE Pre-Procedure Diagnose(s): Chest pain, unspecified type Post-Procedure Diagnose(s): Acute pancreatitis, unspecified complication status, unspecified pancreatitis type 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 CHEST 1 VW Final Result [...] process is identified in the chest. RL: 2856 END OF REPORT Lab Results: reviewed by [...] 0.01 - 0.07 10*3/uL COMP. METABOLIC PANEL (41581) - Abnormal NA 138 135 - 145 [...] INTERPRETATION CBC WITH DIFF COMP. METABOLIC PANEL (56256) LIPASE Orders Placed This Encounter Medications ibuprofen [...] ED Events Date/Time Event User Comments 02/15/23 [address] Beg[address] WISE -- 02/15/23 134 First Provider Evaluation [address] WISE -- No [...] ED Physician in the absence of a plant tech: yes Previous ECG: Previous ECG: Unavailable Interpretation: [...] No Treatment Team: [facility] [[id number]] Is this patient COVID positive or a patient under investigation (PUI)?: No Electronically signed by: Leeanne Wise NP 02/15/231910 Associated attestation - Bushra Rios DO - 02/16/2023 7:30 AM CDT I was personally available for consultation in the Emergency Department during this encounter and patient evaluation by Leeanne Wise. [facility]
[2024-06-10 22:40] LABS: Absolute Basophils 0.1 K/uL (0-0.5); Absolute Eosinophils 0.2 K/uL (0-0.5); Absolute Lymphocytes (CBC) 3.1 K/uL (0.7-4.9); Absolute Monocytes 0.4 K/uL (0.1-1.3); Absolute Neutrophil 5.4 K/uL (1.8-8.0); Basophils % 1.1 % (0-1.3); Hematocrit 38.4 % (36.0-45.0); Hemoglobin 12.9 g/dL (12.0-15.0); Lymphocytes % 33.8 % (15.3-44.8); MCH 26.7 pg (27.0-35.0); MCHC 33.7 g/dL (32.0-36.0); MCV 79.3 fL (80-100); MPV 7.1 fL (7.6-11.3); Monocytes % 4.6 % (3.3-12.3); Neutrophils % 58.5 % (41.7-73.7); Nucleated Red Blood Cells % 0.1 % (0-0); Platelets 347 thou/uL (152-406); RBC Red Blood Cell Count 4.84 M/uL (3.86-4.86); Red Cell Distribution Width 16.1 % (12.1-15.2)
[2024-06-10 22:59] LABS: Anion Gap 11.6 mEq/L (5.0-15.0); Magnesium 1.9 mg/dL (1.6-2.4); Potassium 3.6 mEq/L (3.5-5.1); Troponin High Sensitivity 4.9 pg/mL (<58.9)
[2024-06-10] MEDS ORDERED: ACETAMINOPHEN 500 MG TAB ONE (23:02)
[2024-06-10] MEDS ORDERED: ONDANSETRON 4 MG/2 ML VIAL ONE (23:02)
[2024-06-10] MEDS ORDERED: NITROGLYCERIN 0.4 MG/TAB SL PRN (23:17)
--- NOTE | 2024-06-10 23:18 | ER ---
Nurse's Notes [facility] Name: Charity Hanks Age: 44 yrs Sex: Female : 1980 Arrival Date: 06/10/2024 Time: 21:55 Bed 20 Private MD: Diagnosis: Chest pain, unspecified Presentation: 06/10 22:15 Chief complaint: Patient states: CP and SOB beginning this morning. Coronavirus screen: lg3 Client denies travel out of the [place] in the last 14 days. At this time, the client does not indicate any symptoms associated with coronavirus-19. Ebola Screen: No symptoms or risks identified at this time. Initial Sepsis Screen: Does the patient meet any 2 criteria? No. Patient's initial sepsis screen is negative. Does the patient have a suspected source of infection? No. Patient's initial sepsis screen is negative. Risk Assessment: Do you want to hurt yourself or someone else? Patient reports no desire to harm self or others. Onset of symptoms was June 10, 2024. 22:15 Method Of Arrival: Ambulatory lg3 22:15 Acuity: CARLOS 3 lg3 Triage Assessment: 22:19 General: Appears in no apparent distress. uncomfortable, Behavior is cooperative, lg3 anxious, fussy. Pain: Complains of pain in chest Pain radiates to left arm. EENT: No deficits noted. No signs and/or symptoms were reported regarding the EENT system. Neuro: No deficits noted. Lang Agitation-Sedation Scale (RASS): 0 - Alert and Calm Level of Consciousness is awake, alert, obeys commands, Oriented to person, place, time, situation. Cardiovascular: Reports chest pain, shortness of breath, Capillary refill < 3 seconds Clubbing of nail beds is absent JVD is absent Patient's skin is warm and dry. Respiratory: Reports shortness of breath at rest. GI: No deficits noted. No signs and/or symptoms were reported involving the gastrointestinal system. : No signs and/or symptoms were reported regarding the genitourinary system. Derm: No deficits noted. No signs and/or symptoms reported regarding the dermatologic system. Skin is intact, is healthy with good turgor, Skin is dry, Skin is normal, Skin temperature is warm. Musculoskeletal: No deficits noted. No signs and/or symptoms reported regarding the musculoskeletal system. Circulation, motion, and sensation intact. Range of motion: intact in all extremities. 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 - Infectious Disease History:: Denies. - Social history:: Smoking status: Patient reports the use of cigarette tobacco products, smokes one-half pack cigarettes per day, Patient/guardian denies using alcohol, street drugs. Screenin/05 00:17 [facility] ED Fall Risk Assessment (Adult) History of falling in the last 3 months, cp4 including since admission No falls in past 3 months (0 pts) Confusion or Disorientation No (0 pts) Intoxicated or Sedated No (0 pts) Impaired Gait No (0 pts) Mobility Assist Device Used No (0 pt) Altered Elimination No (0 pt) Score/Fall Risk Level 0 - 2 = Low Risk Oriented to surroundings, Maintained a safe environment, Assessed \T\ reinforced patient's understanding of fall precautions, Hourly rounding (assess needs \T\ fall precautionary measures) done. Abuse screen: Denies threats or abuse. Nutritional screening: No deficits noted. Tuberculosis screening: No symptoms or risk factors identified. Assessment: 00:17 General: Appears in no apparent distress. uncomfortable, Behavior is calm, cooperative, cp4 appropriate for age. Pain: Complains of pain in left arm and chest Pain does not radiate. Pain currently is 10 out of 10 on a pain scale. Pain began 1 hour ago. Neuro: Level of Consciousness is awake, alert, obeys commands, Oriented to person, place, time, situation. Cardiovascular: Reports chest pain, nausea, Patient's skin is warm and dry. Rhythm is sinus rhythm. Respiratory: Airway is patent Respiratory effort is even, unlabored. GI: No signs and/or symptoms were reported involving the gastrointestinal system. : No signs and/or symptoms were reported regarding the genitourinary system. EENT: No signs and/or symptoms were reported regarding the EENT system. Derm: No signs and/or symptoms reported regarding the dermatologic system. Musculoskeletal: No signs and/or symptoms reported regarding the musculoskeletal system. Vital Signs: 06/10 22:15 Pulse 83; Resp 19; Temp 98.2(O); Pulse Ox 100% on R/A; Weight 109.32 kg (R); Height 5 lg3 ft. 52 in. (R); Pain 9/10; 06/11 00:17 BP 126 / 105; Pulse 96; Resp 20; Pulse Ox 97% ; cp4 00:46 BP 110 / 98; Pulse 94; Resp 18; Pulse Ox 97% ; cp4 06/10 22:15 Body Mass Index 13.51 (109.32 kg, 284.48 cm) lg3 06/10 22:15 Pain Scale: Adult lg3 ED Course: 06/10 21:58 Patient arrived in ED. gm2 21:59 Radha Titus FNP-C [facility]. kb 21:59 Marty Singh MD is Attending Physician. kb 22:19 Triage completed. lg3 22:19 Arm band placed on right wrist. lg3 22:37 Accessed peripheral vein via ultrasound, utilizing dynamic ultrasound technique Blood cm10 collected. Clean \T\ dry. Dressing intact. Good blood return. Flushes easily. 20G right forearm. 22:37 Basic Metabolic Panel Sent. cm10 22:37 CBC with Diff Sent. cm10 22:37 Magnesium Sent. cm10 22:37 NT PRO-BNP Sent. cm10 22:37 Troponin HS Sent. cm10 22:48 Janina Montelongo is Primary Nurse. cp4 22:56 XRAY Chest (1 view) In Process Unspecified. EDMS 23:18 Prince Desir MD is Hospitalizing Provider. kb 06/11 00:17 Bed in low position. Call light in reach. Side rails up X2. Provided Education on: cp4 admission. Client placed on continuous cardiac and pulse oximetry monitoring. NIBP monitoring applied. quality assurance monitor chassis on. Pulse ox on. NIBP on. 00:17 No provider procedures requiring assistance completed. Patient maintains SpO2 cp4 saturation greater than 95% on room air. 00:47 Inserted Patient admitted, IV remains in place. cp4 Administered Medications: 06/10 23:05 Drug: Ondansetron IVP 4 mg IVP once; over 2 minutes Route: IVP; Site: right forearm; cp4 06/11 00:21 Follow up: Response: No adverse reaction; Nausea is decreased cp4 06/10 23:05 Drug: Acetaminophen PO 1000 mg PO once Route: PO; cp4 06/11 00:21 Follow up: Response: No adverse reaction; Pain is decreased cp4 06/10 23:26 Drug: morphine IVP or IV 4 mg IVP once over 4 mins Route: IVP; Infused Over: 4 mins; cp4 Site: right forearm; 06/11 00:21 Follow up: Response: No adverse reaction; Pain is decreased cp4 Medication: 00:17 VIS not applicable for this client. cp4 Outcome: 06/10 23:18 Decision to Hospitalize by Provider. kb 06/11 00:47 Admitted to Med/surg accompanied by tech, via wheelchair, with chart, cp4 Condition: stable Instructed on the need for admit, 00:48 Patient left the ED. cp4 Signatures: Dispatcher [employer] EDRadha Guzman, SPECIALIST WOUND CARE-C SPECIALIST WOUND CARE-Toyin Snow RN RN lg3 Keiry Heard RN RN cm10 Janina Montelongo cp4 Lola To 2
--- NOTE | 2024-06-10 23:19 | EDPHYS ---
Physician Documentation [facility] Name: Charity Hanks Age: 44 yrs Sex: Female : 1980 Arrival Date: 06/10/2024 Time: 21:55 Bed 20 Private MD: ED Physician Marty Singh HPI: 06/10 23:19 This 44 yrs old Female presents to ER via Ambulatory with complaints of Chest Pain. kb 23:19 Pt is a 44 year old female who presents for chest pain that started this morning and kb has been constant. No aggravating or alleviating factors. Associated shortness of breath. Pt states she has a heart cath scheduled with Dr Arthur at 0600 tomorrow morning so she was trying to wait it out, but the pain hasn't let up. . 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 - Infectious Disease History:: Denies. - Social history:: Smoking status: Patient reports the use of cigarette tobacco products, smokes one-half pack cigarettes per day, Patient/guardian denies using alcohol, street drugs. ROS: 23:16 Constitutional: As per HPI kb Exam: 23:16 Head/Face: Normocephalic, atraumatic. ENT: Moist Mucous membranes Cardiovascular: kb Regular rate Respiratory: Respirations even and unlabored. No increased work of breathing. Talking in full sentences Abdomen/GI: Soft, non-tender. No distention Skin: Warm, dry with normal turgor. Normal color. MS/ Extremity: Pulses equal, no cyanosis. Neurovascular intact. Full, normal range of motion. Neuro: Awake and alert, GCS 15, oriented to person, place, time, and situation. 23:16 Constitutional: The patient appears alert, awake, uncomfortable, 23:16 ECG was reviewed by the Attending Physician. Vital Signs: 22:15 Pulse 83; Resp 19; Temp 98.2(O); Pulse Ox 100% on R/A; Weight 109.32 kg (R); Height 5 lg3 ft. 52 in. (R); Pain 9/10; 12 00:17 BP 126 / 105; Pulse 96; Resp 20; Pulse Ox 97% ; cp4 00:46 BP 110 / 98; Pulse 94; Resp 18; Pulse Ox 97% ; cp4 12 22:15 Body Mass Index 13.51 (109.32 kg, 284.48 cm) lg3 06/10 22:15 Pain Scale: Adult lg3 MDM: 06/10 21:59 Medical Screening Exam initiated kb 22:54 Data reviewed: vital signs, nurses notes. kb 22:54 The patient was not given aspirin in the Emergency Department. Patient reports taking kb aspirin within the past 24 hours. 23:18 Differential diagnosis: abnormal EKG, acute myocardial infarction, anxiety, coronary kb artery disease. Consideration of Admission/Observation Patient was admitted/placed on observation. Escalation of care including admission/observation considered. Management of patient was discussed with the following: Hospitalist: Dr Desir accepts pt for admission. Environmental Planner: Dr Patel, recommends obs since pt has heart cath scheduled for tomorrow morning. Counseling: I had a detailed discussion with the patient and/or guardian regarding the historical points, exam findings, and any diagnostic results supporting the discharge/admit diagnosis, lab results, radiology results, the need for further work-up and treatment in the hospital. 06/10 22:15 Order name: Basic Metabolic Panel; Complete Time: 23:00 kb 06/10 22:15 Order name: CBC with Diff; Complete Time: 00:02 kb 06/10 22:15 Order name: Magnesium; Complete Time: 23:00 kb 06/10 22:15 Order name: NT PRO-BNP; Complete Time: 23:00 kb 06/10 22:15 Order name: Troponin HS; Complete Time: 23:00 kb 06/10 22:46 Order name: Manual Differential; Complete Time: 00:02 EDMS 06/10 23:22 Order name: Lipid Profile EDMS 06/10 23:22 Order name: Lipid Profile EDMS 06/10 23:22 Order name: Troponin High Sensitivity EDMS 06/10 23:22 Order name: Troponin High Sensitivity EDMS 06/10 23:22 Order name: Troponin High Sensitivity EDMS 06/10 23:22 Order name: Troponin High Sensitivity EDMS 06/10 22:15 Order name: XRAY Chest (1 view) kb 06/10 23:22 Order name: Echo with Doppler EDMS 06/10 23:22 Order name: CONS Physician Consult EDMS 06/10 22:15 Order name: Cardiac monitoring; Complete Time: 22:52 kb 06/10 22:15 Order name: EKG - Nurse/Tech; Complete Time: 22:52 kb 06/10 22:15 Order name: IV Saline Lock; Complete Time: 22:37 kb 06/10 22:15 Order name: Labs collected and sent; Complete Time: 22:37 kb 06/10 22:15 Order name: O2 Per Protocol; Complete Time: 22:52 kb 06/10 22:15 Order name: O2 Sat Monitoring; Complete Time: 22:52 kb EC:16 Rate is 92 beats/min. Rhythm is regular. QRS [place] is Normal. [place] interval is normal at kb 140 msec. QRS interval is normal at 68 msec. QT interval is normal at 435 msec. Administered Medications: 23:05 Drug: Ondansetron IVP 4 mg IVP once; over 2 minutes Route: IVP; Site: right forearm; cp4 06/11 00:21 Follow up: Response: No adverse reaction; Nausea is decreased cp4 06/10 23:05 Drug: Acetaminophen PO 1000 mg PO once Route: PO; cp4 06/11 00:21 Follow up: Response: No adverse reaction; Pain is decreased cp4 06/10 23:26 Drug: morphine IVP or IV 4 mg IVP once over 4 mins Route: IVP; Infused Over: 4 mins; cp4 Site: right forearm; 06/11 00:21 Follow up: Response: No adverse reaction; Pain is decreased cp4 Disposition: 00:39 Co-signature as Attending Physician, Marty Singh MD I agree with the assessment sp4 and plan of care. I reviewed the patient's care provided by Advanced Practice Provider \T\ agree w/ the diagnosis \T\ care plan. I personally saw the pt \T\ performed a substantive portion of the visit, incldng all aspects of the (History/Exam/Medical Decision Making). Disposition Summary: 06/10/24 23:18 Hospitalization Ordered Notes: Hospitalization Status: Observation kb Provider: Prince rajinder Desir Location: Telemetry/MedSurg (observation) kb Condition: Stable kb Problem: new kb Symptoms: are unchanged kb Bed/Room Type: Standard kb Room Assignment: 215(06/10/24 23:38) kmf Diagnosis - Chest pain, unspecified kb Forms: - Medication Reconciliation Form kb - SBAR form kb - Leadership Thank You Letter kb Signatures: Dispatcher [employer] EDMS Radha Titus, COUNTY AGRICULTURAL AGENT-C COUNTY AGRICULTURAL AGENT-CkToyin Garcia RN RN lg3 Marty Singh MD MD sp4 Janina Montelongo 4 Kellee Bee kmf Corrections: (The following items were deleted from the chart) 06/10 22:16 22:16 BASIC METABOLIC PANEL+C.LAB.BRZ ordered. EDMS EDMS 22:16 22:16 CBC+H.LAB.BRZ ordered. EDMS EDMS 22:16 22:16 MAGNESIUM+C.LAB.BRZ ordered. EDMS EDMS 22:16 22:16 PROBNP+C.LAB.BRZ ordered. EDMS EDMS 22:16 22:16 Troponin High Sensitivity+C.LAB.BRZ ordered. EDMS EDMS 22:16 22:16 Chest Single View+RAD.RAD.BRZ ordered. EDMS EDMS 23:38 23:18 kb kmf 23:54 23:22 Troponin High Sensitivity ordered. EDMS EDMS
[2024-06-10] MEDS ORDERED: MORPHINE 4 MG/ML SYR ONE (23:24)
--- NOTE | 2024-06-10 23:25 | P.HP ---
Certification for Inpatient Patient admitted to: Observation With expected LOS: <2 Midnights Practitioner: I am a practitioner with admitting privileges, knowledge of patient current condition, hospital course, and medical plan of care. Services: Services provided to patient in accordance with Admission requirements found in Title 42 Section 412.3 of the Code of Federal Regulations Patient History Date of Service: 06/10/24 Reason for admission: Chest pain, pending cardiac cath History of Present Illness: Patient is a 44-year-old female with a known past medical history of coronary disease status post PCI to severe PDA stenosis in November 2023. She has a history of hypertension, hyperlipidemia and PTSD. She is being admitted for recurrent chest pain. Her present episode started the morning of admission and did not let up. Patient is compliant with her medications which include dual antiplatelet therapy, rosuvastatin dueo to lipitor allergy, and isosorbide mononitrate 90 mg daily. She took her aspirin and Imdur earlier today but this did not relieve her symptoms. She has had at least 2 other admissions for chest pain since her last heart cath was summer of this year. ACS and PE were ruled out during those visits. Patient's Imdur was titrated up to 90 mg. Due to recurring chest pain, there is a plan to proceed with a left heart cath. It is scheduled for tomorrow. [facility] Patient's initial troponin is negative. Her EKG is normal. During my evaluation, patient was hypertensive with blood pressure of 168/120 mmHg. Allergies No Known Allergies Allergy (Verified 06/10/24 12:20) Home Medications: Suvorexant [Belsomra] 20 mg PO BEDTIME 12/05/23 hydrOXYzine pamoate [Hydroxyzine Pamoate] 1 tab PO BEDTIME PRN PRN 12/05/23 Aspirin [Adult Aspirin Regimen] 81 mg PO DAILY 30 Days #30 tab 12/06/23 Clopidogrel Bisulfate [Plavix*] 75 mg PO DAILY 30 Days #30 tab 12/06/23 LORazepam [Ativan*] 0.5 mg PO BIDP PRN 05/11/24 Metoprolol Succinate [Toprol Xl*] 25 mg PO DAILY 05/11/24 Rosuvastatin [Crestor*] 20 mg PO BEDTIME 05/11/24 Isosorbide Mononitrate [Isosorbide Mononitrate ER] 90 mg PO DAILY 30 Days #90 tab 05/12/24 - Past Medical/Surgical History Diabetic: No -: Anxiety/depression -: Bipolar -: PTSD -: HLD -: [place] -: Angina -: HTN -: Cholecystectomy -: tonsillectomy -: cardiac stent x1 Psychosocial/ Personal History: Unemployed, lives at home with her father and 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 - Family History Mother -: Heart disease Father -: Heart disease Brother Notes: bipolar. anxiety. depression - Social History Alcohol use: No CD- Drugs: No Caffeine use: Yes Physical Examination - Physical Exam General: Acute distress HEENT: Atraumatic, Normocephalic Respiratory: Clear to auscultation bilaterally, Normal air movement Cardiovascular: No edema, Normal pulses, Regular rate/rhythm, Normal S1 S2 Neurological: Normal speech - Studies Laboratory Data (last 24 hrs) 06/10/24 06/10/24 22:35 22:35 WBC 9.20 Hgb 12.9 Hct 38.4 Plt Count 347 Sodium 139 Potassium 3.6 BUN 11 Creatinine 0.82 Glucose 101 Magnesium 1.9 Assessment and Plan - Problems (Diagnosis) (1) CAD (coronary artery disease) Current Visit: No Status: Acute (2) Chest pain Current Visit: No Status: Acute Qualifiers: (3) HLD (hyperlipidemia) Current Visit: No Status: Acute (4) HTN (hypertension) Current Visit: No Status: Acute - Plan Assessment This is a 44-year-old female with a history of hypertension, hyperlipidemia coronary disease status post PCI in November had chest pain since her procedure. She is being admitted today for recurrent chest pain. There is a plan to proceed with cardiac cath tomorrow with Dr. Arthur Chest pain Coronary disease status post PCI Hypertension Hyperlipidemia Anxiety and depression PTSD Plan: Admit under observation with telemetry Start patient on norvasc for BP control PRN nitroglycerin on board Cardiology has been consulted for left heart cath Should be n.p.o. after midnight - Advance Directives Does patient have a Living Will: No Does patient have a Durable POA for Healthcare: No
[2024-06-10 23:58] LABS: Band Neutrophils 5 % (0-1); Blood Morphology Comment NOT SEEN (NOT SEEN); Differential Total Cells Count 100; Lymphocytes 24 % (15-42); Monocytes 4 % (0-10); Platelet Estimate ADEQ; Reactive Lymphocytes 17 %; Segmented Neutrophils 49 % (40-80)
[2024-06-11 00:49] VITALS: BMI 43.9
[2024-06-11] MEDS: AMLODIPINE 10 MG TAB ONE (00:53)
[2024-06-11] MEDS: HYDROMORPHONE HCL 1 MG/ML INJ IV ONE ×3 (01:19→11:49)
[2024-06-11] MEDS: AMLODIPINE 10 MG TAB PO SCH (01:23)
[2024-06-11 04:16] VITALS: TEMP 96.8
--- NOTE | 2024-06-11 06:04 | RAD REPORT ---
EXAM DESCRIPTION: Chest Single View CLINICAL HISTORY: CHEST PAIN TECHNIQUE: AP chest COMPARISON: May 13 FINDINGS: CHEST: Heart: The cardiomediastinal silhouette is within normal limits. Lungs: No focal consolidation. Mediastinum: Unremarkable Pleura: No appreciable effusion. No pneumothorax. Bones: Intact IMPRESSION: No acute cardiopulmonary disease. Electronically signed by: Bebo Lomas MD 06/10/2024 11:51 PM [facility] Due to temporary technical issues with the [employer]ACS[employer] reporting system, reports are being melita d by the in-house radiologist without review as a courtesy to ensure prompt reporting the interpreting radiologist is fully responsible for the content of the report. Transcribed Date/Time: 06/11/2024 6:04 AM
[2024-06-11] MEDS ORDERED: NITROGLYCERIN/D5W 50 MG/250 ML BTL IV ONE (06:47)
[2024-06-11] MEDS ORDERED: LIDOCAINE 1% 20 ML MDV ONE (06:47)
[2024-06-11] MEDS ORDERED: HEPA 1000U/500MLS 2,000 UNIT/1,000 ML BAG IV ONE (06:47)
[2024-06-11] MEDS ORDERED: VERAPAMIL HCL 10 MG/4 ML VIAL IV ONE (06:47)
[2024-06-11] MEDS ORDERED: HEPARIN 10,000 UNIT/10 ML VIAL IV ONE (06:47)
[2024-06-11] MEDS ORDERED: ATROPINE SULF 1 MG/10 ML SYR IV ONE (06:47)
[2024-06-11] MEDS ORDERED: HEPARIN 5000 UNIT/ML 1 ML VIAL ONE (06:48)
[2024-06-11] MEDS ORDERED: CLOPIDOGREL 75 MG TABLET ONE (06:48)
[2024-06-11] MEDS ORDERED: ASPIRIN 325 MG TAB ONE (06:48)
[2024-06-11] MEDS ORDERED: TICAGRELOR 90 MG TABLET PO ONE (06:48)
[2024-06-11] MEDS ORDERED: MIDAZOLAM HCL 2 MG/2 ML INJ ONE ×2 (06:50→08:09)
[2024-06-11] MEDS ORDERED: FENTANYL CITR 100 MCG/2 ML ONE (06:50)
[2024-06-11] MEDS ORDERED: NA CHLORIDE 0.9% 500 ML ONE (07:01)
[2024-06-11] MEDS: ASPIRIN EC 81 MG TAB PO SCH (07:31)
[2024-06-11] MEDS: FENTANYL CITR 100 MCG/2 ML ONE (08:43)
[2024-06-11 09:16] VITALS: O2SAT 93
[2024-06-11 10:09] VITALS: BP 107/54
--- NOTE | 2024-06-11 10:13 | P.CNS ---
Date of Consult: 06/11/24 Chief Complaint: Chest pain, pending cardiac cath History of Present Illness: Patient with PMH of CAD, HTN, Anxiety presented with chest pain started last night, patient had frequent hospital admissions for same problem, denies any other cardiac symptoms. Allergies No Known Allergies Allergy (Verified 06/11/24 01:05) Home medications list reviewed: Yes Home Medications: RX: Suvorexant [Belsomra] 20 mg PO BEDTIME 12/05/23 RX: hydrOXYzine pamoate [Hydroxyzine Pamoate] 1 tab PO BID 12/05/23 RX: Aspirin [Adult Aspirin Regimen] 81 mg PO DAILY 30 Days #30 tab 12/06/23 RX: Clopidogrel Bisulfate [Plavix*] 75 mg PO DAILY 30 Days #30 tab 12/06/23 RX: LORazepam [Ativan*] 0.5 mg PO BIDP PRN 05/11/24 RX: Metoprolol Succinate [Toprol Xl*] 25 mg PO DAILY 05/11/24 RX: Rosuvastatin [Crestor*] 20 mg PO BEDTIME 05/11/24 Isosorbide Mononitrate [Isosorbide Mononitrate ER] 90 mg PO DAILY 30 Days #90 tab 05/12/24 Sertraline [Zoloft] 150 mg PO DAILY 06/11/24 - Past Medical/Surgical History Diabetic: No -: Anxiety/depression -: Bipolar -: PTSD -: HLD -: [place] -: Angina -: HTN -: Cholecystectomy -: tonsillectomy -: cardiac stent x1 Psychosocial/ Personal History: Unemployed, lives at home with her father and 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 - Family History Mother Medical History: Heart disease Father Medical History: Heart disease Brother Notes: bipolar. anxiety. depression - Social History Smoking Status: Current every day smoker Alcohol use: No CD- Drugs: No Caffeine use: Yes Place of Residence: Home Review of Systems 10-point ROS is otherwise unremarkable Physical Examination Temp Pulse Resp BP Pulse Ox 96.8 F 73 16 107/54 L 98 06/11/24 04:00 06/11/24 09:10 06/11/24 09:10 06/11/24 09:10 06/11/24 04:00 General: Alert, In no apparent distress HEENT: Atraumatic, PERRLA, Mucous membr. moist/pink, EOMI, Sclerae nonicteric Neck: Supple, 2+ carotid pulse no bruit, No LAD, Without JVD or thyroid abnormality Respiratory: Clear to auscultation bilaterally, Normal air movement Cardiovascular: Regular rate/rhythm, Normal S1 S2 Gastrointestinal: Normal bowel sounds, No tenderness Musculoskeletal: No tenderness Integumentary: No rashes Neurological: Normal gait, Normal speech, Normal tone, Normal affect Lymphatics: No axilla or inguinal lymphadenopathy Laboratory Data (last 24 hrs) 06/10/24 06/10/24 22:35 22:35 WBC 9.20 Hgb 12.9 Hct 38.4 Plt Count 347 Sodium 139 Potassium 3.6 BUN 11 Creatinine 0.82 Glucose 101 Magnesium 1.9 - Problems (1) CAD (coronary artery disease) Current Visit: No Status: Acute Plan: coronary angiogram was done today and shows patent RCA with mild mild LAD and RCA disease Continue ASA 81 mg daily continue Imdur 90 mg po daily continue statins (2) HLD (hyperlipidemia) Current Visit: No Status: Acute Plan: continue lipitor 40 mg daily (3) HTN (hypertension) Current Visit: No Status: Acute Plan: continue Norvasc and Imdur
--- NOTE | 2024-06-11 11:43 | P.DS ---
Admission Date: 06/10/24 Discharge Date: 06/11/24 Disposition: ROUTINE DISCHARGE Discharge Condition: GOOD Reason for Admission: Chest pain, pending cardiac cath Brief History of Present Illness: Patient is a 44-year-old female with a known past medical history of coronary disease status post PCI to severe PDA stenosis in November 2023. She has a history of hypertension, hyperlipidemia and PTSD. She is being admitted for recurrent chest pain. Her present episode started the morning of admission and did not let up. Patient is compliant with her medications which include dual antiplatelet therapy, rosuvastatin dueo to lipitor allergy, and isosorbide mononitrate 90 mg daily. She took her aspirin and Imdur earlier today but this did not relieve her symptoms. She has had at least 2 other admissions for chest pain since her last heart cath was summer of this year. ACS and PE were ruled out during those visits. Patient's Imdur was titrated up to 90 mg. Due to recurring chest pain, there is a plan to proceed with a left heart cath. It is scheduled for tomorrow. She is known to cardiology service at [facility]. Patient's initial troponin is negative. Her EKG is normal. During my evaluation, patient was hypertensive with blood pressure of 168/120 mmHg. Hospital Course: Problem list Chest pain Coronary disease status post PCI Hypertension Hyperlipidemia Anxiety and depression PTSD Patient was admitted to hospital for chest pain, she underwent coronary angiogram on 06/11/2024 which showed patent RCA with mild LAD and RCA disease with recommendation to continue aspirin, Imdur and statin. Patient is stable for discharge and outpatient follow-up at this time. He had radial access cath and was given instructions for site care. Vital Signs/Physical Exam: Temp Pulse Resp BP Pulse Ox 96.8 F 73 16 107/54 L 98 06/11/24 04:00 06/11/24 09:40 06/11/24 09:40 06/11/24 09:40 06/11/24 04:00 General: Alert, In no apparent distress, Oriented x3 HEENT: Atraumatic, PERRLA Neck: Supple, JVD not distended Respiratory: Clear to auscultation bilaterally, Normal air movement Cardiovascular: Regular rate/rhythm, Normal S1 S2 Gastrointestinal: Normal bowel sounds, No tenderness Musculoskeletal: No tenderness Integumentary: No rashes Neurological: Normal speech, Normal affect Laboratory Data at Discharge: WBC 9.20 thou/uL (4.3-10.9) 06/10/24 22:35 Hgb 12.9 g/dL (12.0-15.0) 06/10/24 22:35 Hct 38.4 % (36.0-45.0) 06/10/24 22:35 Plt Count 347 thou/uL (152-406) 06/10/24 22:35 Sodium 139 mEq/L (136-145) 06/10/24 22:35 Potassium 3.6 mEq/L (3.5-5.1) 06/10/24 22:35 BUN 11 mg/dL (7-18) 06/10/24 22:35 Creatinine 0.82 mg/dL (0.55-1.02) 06/10/24 22:35 Glucose 101 mg/dL (74-106) 06/10/24 22:35 Magnesium 1.9 mg/dL (1.6-2.4) 06/10/24 22:35 Triglycerides Cancelled 06/11/24 05:00 Cholesterol Cancelled 06/11/24 05:00 HDL Cholesterol Cancelled 06/11/24 05:00 Cholesterol/HDL Ratio Cancelled 06/11/24 05:00 Home Medications: Suvorexant [Belsomra] 20 mg PO BEDTIME 12/05/23 hydrOXYzine pamoate [Hydroxyzine Pamoate] 1 tab PO BID 12/05/23 Aspirin [Adult Aspirin Regimen] 81 mg PO DAILY 30 Days #30 tab 12/06/23 Clopidogrel Bisulfate [Plavix*] 75 mg PO DAILY 30 Days #30 tab 12/06/23 LORazepam [Ativan*] 0.5 mg PO BIDP PRN 05/11/24 Metoprolol Succinate [Toprol Xl*] 25 mg PO DAILY 05/11/24 Rosuvastatin [Crestor*] 20 mg PO BEDTIME 05/11/24 Isosorbide Mononitrate [Isosorbide Mononitrate ER] 90 mg PO DAILY 30 Days #90 tab 05/12/24 Sertraline [Zoloft*] 150 mg PO DAILY 06/11/24 Physician Discharge Instructions: Patient was admitted to hospital for chest pain, she underwent coronary angiogram on 06/11/2024 which showed patent RCA with mild LAD and RCA disease with recommendation to continue aspirin, Imdur and statin. Patient is stable for discharge and outpatient follow-up at this time. He had radial access cath and was given instructions for site care. Diet: AHA Activity: Ad selin Followup: Neil Arthur MD [ACTIVE - CAN ADMIT] - 1-2 Weeks Riddhi Freitas FNP [Primary Care Provider] - 1 Week Time spent managing pt's care (in minutes): 35
--- NOTE | 2024-06-11 20:48 | OP ---
Date of Procedure: 06/11/2024 Surgeon: James Patel Procedures Performed: 1.Left heart catheterization. 2.Selective coronary angiogram. Indication For Procedure: Unstable angina. Complications: None. Estimated Blood Loss: Less than 50 cc. Access: Right radial, closed by TR band. Sedation Time: 20 minutes with 2 of Versed and 50 of fentanyl. Description Of Procedure: After risks, benefits, and alternatives were explained to the patient, the patient agreed to proceed with the procedure and signed informed consent. [facility] to the laborer tin can, prepped and draped in sterile fashion. Time-out was performed. Sedation was ad ministered. Next, right radial access was obtained using an ultrasound-guided micropuncture techniqu e. [place] 4 catheter was advanced to the LV cavity. LVEDP was obtained. Pullback did not show any g radient. Same catheter was used for selective angiogram of the left and right coronary systems. At the end of procedure, sheath was removed. TR band was applied. Hemostasis was achieved. The patien t was moved back to recovery in stable condition. Findings: 1.Left main: Normal. 2.LAD: Mild luminal irregularities with mid 30% to 40% disease, then mild luminal irregularities. 3.Diagonal 1: Large with mild luminal irregularities. 4.Left circumflex: Mild luminal irregularities. 5.RCA: Mid 30% disease, distal stent patent. 6.LVEDP: 14 mmHg. Assessment And Plan: 1.Mild nonobstructive coronary artery disease with patent distal right coronary artery stent. 2.Normal filling pressure. Plan will be to continue medical management for coronary artery disease. VERN/JAZMÍN Voice ID: [id number] Report ID: [id number]
== END 2024-06-11 12:14 | disposition home or self-care (01) ==
LOC: ER 21:55 → ERHOLD 23:17 → 2ND 06-11 00:26
PROVIDERS: ADMIT Internal Medicine; ATTEND Hospitalist
PROC: 4A023N7 Measurement of Cardiac Sampling and Pressure, Left Heart, Percutaneous Approach (ICD-10-PCS; principal; 2024-06-11)
PROC: B2111ZZ Fluoroscopy of Multiple Coronary Arteries using Low Osmolar Contrast (ICD-10-PCS; 2024-06-11)
PROC: B2151ZZ Fluoroscopy of Left Heart using Low Osmolar Contrast (ICD-10-PCS; 2024-06-11)
DX: I25.110 Atherosclerotic heart disease of native coronary artery with unstable angina pectoris (principal); I10 Essential (primary) hypertension; E78.5 Hyperlipidemia, unspecified; F43.10 Post-traumatic stress disorder, unspecified; F41.8 Other specified anxiety disorders; F31.9 Bipolar disorder, unspecified; I25.2 Old myocardial infarction; Z95.5 Presence of coronary angioplasty implant and graft; F17.210 Nicotine dependence, cigarettes, uncomplicated; Z90.49 Acquired absence of other specified parts of digestive tract; Z79.02 Long term (current) use of antithrombotics/antiplatelets; Z79.82 Long term (current) use of aspirin; Z79.899 Other long term (current) drug therapy; Z82.49 Family history of ischemic heart disease and other diseases of the circulatory system
CPT/HCPCS: 85025; 80048; 36415; 83735; 84484; 83880; 71045; 93458; 76937; 96375; 96374; 99285; C1893; Q9966; J1644; J2003; J2250 ×2; J3010 ×2; J1171 ×3; J2405; G0378 ×3; J7040; 99152; 99153; J0461

== ENCOUNTER 2024-06-12 18:53 | Emergency (ER) | payer OTHER ==
[2024-06-12 19:32] LABS: Absolute Basophils 0.1 K/uL (0-0.5); Absolute Eosinophils 0.2 K/uL (0-0.5); Absolute Lymphocytes (CBC) 2.6 K/uL (0.7-4.9); Absolute Monocytes 0.4 K/uL (0.1-1.3); Absolute Neutrophil 4.2 K/uL (1.8-8.0); Basophils % 1.4 % (0-1.3); Eosinophils % 2.9 % (0-4.4); Hematocrit 38.6 % (36.0-45.0); Hemoglobin 12.8 g/dL (12.0-15.0); Lymphocytes % 34.1 % (15.3-44.8); MCH 26.5 pg (27.0-35.0); MCHC 33.1 g/dL (32.0-36.0); MCV 80.2 fL (80-100); MPV 7.3 fL (7.6-11.3); Monocytes % 5.8 % (3.3-12.3); Neutrophils % 55.8 % (41.7-73.7); Nucleated Red Blood Cells % 0.1 % (0-0); Platelets 326 thou/uL (152-406); RBC Red Blood Cell Count 4.81 M/uL (3.86-4.86); Red Cell Distribution Width 16.1 % (12.1-15.2)
[2024-06-12 19:35] LABS: PT Prothrombin Time 10.6 SECONDS (9.4-12.5); Protime INR 0.94
[2024-06-12 19:50] LABS: Anion Gap 10.7 mEq/L (5.0-15.0); Potassium 3.7 mEq/L (3.5-5.1); Troponin High Sensitivity 3.5 pg/mL (<58.9)
[2024-06-12] MEDS ORDERED: ONDANSETRON 4 MG/2 ML VIAL ONE (19:52)
[2024-06-12] MEDS ORDERED: KETOROLAC 30 MG/ML INJ ONE (19:52)
[2024-06-12] MEDS ORDERED: MORPHINE 4 MG/ML SYR ONE (20:28)
[2024-06-12] MEDS ORDERED: DIAZEPAM 5 MG TABLET ONE (20:28)
--- NOTE | 2024-06-12 21:33 | RAD REPORT ---
EXAM:Upper Ext Angio CLINICAL HISTORY:: Right arm pain TECHNIQUE: 100 cc Isovue-[address] angiogram of the right upper extremity performed. 3 -D mapping reconstruction performed. One or more of the following dose reduction techniques were used: Automated exposure control, adjustm ent of the mA and/or kV according to patient size, and/or iterative reconstruction. Unless otherwise specified, incidental findings do not require dedicated imaging follow-up. FINDINGS: Right subclavian, right axillary, and right brachial arteries are normal. There is poor visualization of right ulnar and radial arteries. Poor visualization of superficial and deep palmar arches IMPRESSION: Normal opacification proximal mid arteries right upper extremity. Poor opacification right ulnar and radial arteries. Poor opacification superficial and deep palmar arches.
--- NOTE | 2024-06-12 21:48 | EDPHYS ---
Physician Documentation [facility] Name: Charity Hanks Age: 44 yrs Sex: Female : 1980 Arrival Date: 06/12/2024 Time: 18:53 Bed 7 Private MD: ED Physician Marty Singh HPI: 06/12 19:44 This 44 yrs old Female presents to ER via EMS with complaints of Arm Pain. sp3 19:44 44-year-old female with a history of CAD, depression, pancreatitis, PTSD now presents sp3 with right wrist and arm pain after cardiac catheterization performed on June [address] Flores. Patient states that the cath site is painful with ascending pain up into the shoulder. She denies any chest pain, shortness of breath, hand numbness or tingling, decrease strength in the hand or any other signs or symptoms on ROS at this time.. 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 - Infectious Disease History:: Denies. - Social history:: Smoking status: Patient reports the use of cigarette tobacco products, smokes one-half pack cigarettes per day, Patient/guardian denies using alcohol. ROS: 19:45 Constitutional: Negative for fever, chills, and weight loss, Eyes: Negative for injury, sp3 pain, redness, and discharge, Neck: Negative for injury, pain, and swelling, Respiratory: Negative for shortness of breath, cough, wheezing, and pleuritic chest pain, Abdomen/GI: Negative for abdominal pain, nausea, vomiting, diarrhea, and constipation, Back: Negative for injury and pain, Skin: Negative for injury, rash, and discoloration, Neuro: Negative for headache, weakness, numbness, tingling, and seizure, 19:45 All other systems are negative, Exam: 19:45 Constitutional: This is a well developed, well nourished patient who is awake, alert, sp3 and in no acute distress. Head/Face: Normocephalic, atraumatic. Eyes: Pupils equal round and reactive to light, extra-ocular motions intact. Lids and lashes normal. Conjunctiva and sclera are non-icteric and not injected. Cornea within normal limits. Periorbital areas with no swelling, redness, or edema. Neck: Trachea midline, no thyromegaly or masses palpated, and no cervical lymphadenopathy. Supple, full range of motion without nuchal rigidity, or vertebral point tenderness. No Meningismus. Chest/axilla: Normal chest wall appearance and motion. Nontender with no deformity. No lesions are appreciated. Cardiovascular: Regular rate and rhythm with a normal S1 and S2. No gallops, murmurs, or rubs. Normal PMI, no JVD. No pulse deficits. Respiratory: Lungs have equal breath sounds bilaterally, clear to auscultation and percussion. No rales, rhonchi or wheezes noted. No increased work of breathing, no retractions or nasal flaring. Abdomen/GI: Soft, non-tender, with normal bowel sounds. No distension or tympany. No guarding or rebound. No evidence of tenderness throughout. Skin: Warm, dry with normal turgor. Normal color with no rashes, no lesions, and no evidence of cellulitis. Neuro: Awake and alert, GCS 15, oriented to person, place, time, and situation. Cranial nerves II-XII grossly intact. Motor strength 5/5 in all extremities. Sensory grossly intact. Cerebellar exam normal. Normal gait. Psych: Awake, alert, with orientation to person, place and time. Behavior, mood, and affect are within normal limits. 19:45 Musculoskeletal/extremity: Right radial pulse present. Site does not look infected. No swelling noted. Distal neurovascular exam is normal.. 19:47 ECG was reviewed by the Attending Physician. EKG demonstrates normal sinus rhythm at 96 sp3 bpm with normal intervals, normal QRS, leftward axis, and nonspecific diffuse ST's ST changes without evidence of acute ischemia. Vital Signs: 19:01 BP 132 / 99; Pulse 102; Resp 20; Temp 98.3(O); Pulse Ox 94% on R/A; MAP 108 mmHg; tm6 Weight 109.32 kg; Height 5 ft. 2 in. ; Pain 10/10; 19:44 BP 150 / 123; Pulse 90; Resp 18; Temp 98.3; Pulse Ox 97% on R/A; Pain 10/10; bm8 20:15 BP 136 / 111; Pulse 85; Resp 17; Temp 98.3; Pulse Ox 97% ; Pain 7/10; bm8 21:08 BP 108 / 89; Pulse 80; Resp 18; Temp 98.5; Pulse Ox 96% ; Pain 8/10; bm8 21:47 BP 112 / 92; Pulse 92; Resp 18; Temp 98.5; Pulse Ox 95% ; Pain 8/10; bm8 19:01 Body Mass Index 44.08 (109.32 kg, 157.48 cm) tm6 19:01 Pain Scale: Adult tm6 19:44 Pain Scale: Adult bm8 20:15 Pain Scale: Adult bm8 21:08 Pain Scale: Adult bm8 21:47 Pain Scale: Adult bm8 Wells Coma Score: 19:44 Eye Response: spontaneous(4). Motor Response: obeys commands(6). Verbal Response: bm8 oriented(5). Total: 15. 20:15 Eye Response: spontaneous(4). Motor Response: obeys commands(6). Verbal Response: bm8 oriented(5). Total: 15. 21:08 Eye Response: spontaneous(4). Motor Response: obeys commands(6). Verbal Response: bm8 oriented(5). Total: 15. 21:47 Eye Response: spontaneous(4). Motor Response: obeys commands(6). Verbal Response: bm8 oriented(5). Total: 15. MDM: 18:55 Medical Screening Exam initiated sp3 19:46 Data reviewed: vital signs, nurses notes, radiologic studies. ED course: 44-year-old sp3 female status post cardiac catheterization 2 days ago and now with right upper extremity pain at site of cath. Differential diagnosis includes pseudoaneurysm, vascular dissection, or other complication. Workup will include general labs and CT scan of the right upper extremity with IV contrast. Patient will be signed out to night physician for reevaluation and final disposition.. 21:43 ED course: RADIOLOGYSERVICES REPORT Name: CHARITY HANKS Acct Number: [id number] :[id number] Age:44 Sex:F Ord Phys: Johny Chahal Unit Number: [id number] Prim Care Dr: Gregorio Givens DO Status: REG ER Exam Date: 06/12/24 EXAM:Upper Ext Angio CLINICAL HISTORY:: Right arm pain TECHNIQUE: 100 cc Isovue-[address] angiogram of the right upper extremity performed. 3-D mapping reconstruction performed. One or more of the following dose reduction techniques were used: Automated exposure control, adjustment of the mA and/or kV according to patient size, and/or iterative reconstruction. Unless otherwise specified, incidental findings do not require dedicated imaging follow-up. FINDINGS: Right subclavian, right axillary, and right brachial arteries are normal. There is poor visualization of right ulnar and radial arteries. Poor visualization of superficial and deep palmar arches IMPRESSION: Normal opacification proximal mid arteries right upper extremity. Poor opacification right ulnar and radial arteries. Poor opacification superficial and deep palmar arches.. 06/12 18:59 Order name: Basic Metabolic Panel; Complete Time: 19:50 sp3 06/12 18:59 Order name: CBC with Diff; Complete Time: 19:47 sp3 06/12 18:59 Order name: PT-INR; Complete Time: 19:47 sp3 06/12 18:59 Order name: Troponin HS; Complete Time: 19:50 sp3 06/12 19:05 Order name: Upper Ext Angio EDAZ 06/12 18:59 Order name: Cardiac monitoring; Complete Time: 19:50 sp3 06/12 18:59 Order name: EKG - Nurse/Tech; Complete Time: 19:50 sp3 06/12 18:59 Order name: IV Saline Lock; Complete Time: 19:50 sp3 06/12 18:59 Order name: Labs collected and sent; Complete Time: 19:50 sp3 06/12 18:59 Order name: O2 Sat Monitoring; Complete Time: 19:50 sp3 Administered Medications: 19:55 Drug: Ketorolac IVP 15 mg IVP once Route: IVP; Site: left forearm; bm8 20:37 Follow up: Response: No adverse reaction bm8 19:55 Drug: Ondansetron IVP 4 mg IVP once; over 2 minutes Route: IVP; Site: left forearm; bm8 20:37 Follow up: Response: No adverse reaction bm8 20:30 Drug: morphine IVP or IV 4 mg IVP once over 4 mins Route: IVP; Infused Over: 4 mins; bm8 Site: left forearm; 20:37 Follow up: Response: No adverse reaction bm8 20:30 Drug: Diazepam PO 5 mg PO once Route: PO; bm8 20:37 Follow up: Response: No adverse reaction bm8 Disposition Summary: 06/12/24 21:47 Discharge Ordered Notes: Please see Dr. Patel in 7 days for office visit. Location: Home sp4 Problem: new sp4 Symptoms: have improved sp4 Condition: Stable sp4 Diagnosis - Right wrist pain after arterial puncture, acute right upper arm pain. sp4 Followup: sp4 - With: Neil Arthur MD - When: 7 - 10 days - Reason: Recheck today's complaints Discharge Instructions: - Discharge Summary Sheet sp4 - Puncture Wound, [id number] sp4 Forms: - Patient Portal Instructions sp4 Signatures: Dispatcher [employer] Johny Cox MD MD sp3 Marty Singh MD MD sp4 Kaylee Verdugo RN RN tm6 Dayne Moody RN RN bm8
--- NOTE | 2024-06-12 21:48 | ER ---
Nurse's Notes [facility] Name: Charity Hanks Age: 44 yrs Sex: Female : 1980 Arrival Date: 06/12/2024 Time: 18:53 Bed 7 Private MD: Diagnosis: Right wrist pain after arterial puncture, acute right upper arm pain. Presentation: 06/12 19:01 Chief complaint: EMS states: patient was here Saturday for CP, was admitted and tm6 received a heart cath going through the right wrist. Yesterday started to experience n/v. Today started to experience right arm pain, 04/16. Coronavirus screen: Client denies travel out of the [place] in the last 14 days. Ebola Screen: Patient negative for fever greater than or equal to 101.5 degrees Fahrenheit, and additional compatible Ebola Virus Disease symptoms Patient denies exposure to infectious person. Patient denies travel to an Ebola-affected area in the 21 days before illness onset. No symptoms or risks identified at this time. Initial Sepsis Screen: Does the patient meet any 2 criteria? No. Patient's initial sepsis screen is negative. Does the patient have a suspected source of infection? No. Patient's initial sepsis screen is negative. Initial Sepsis Screen: Does the patient meet any 2 criteria? HR > 90 bpm. Risk Assessment: Do you want to hurt yourself or someone else? Patient reports no desire to harm self or others. Onset of symptoms was June 11, 2024. 19:01 Method Of Arrival: [facility] 6 19:01 Acuity: CARLOS 3 tm6 Triage Assessment: 19:04 General: Appears distressed, Behavior is cooperative. Pain: Complains of pain in right tm6 arm Pain currently is 10 out of 10 on a pain scale. Pain began today. EENT: No signs and/or symptoms were reported regarding the EENT system. Neuro: Level of Consciousness is awake, alert, obeys commands, Oriented to person, place, time, situation. Cardiovascular: Patient's skin is warm and dry. Respiratory: Airway is patent Respiratory effort is even, unlabored, Respiratory pattern is regular, symmetrical. GI: Abdomen is round Reports nausea, vomiting, since yesterday. : No signs and/or symptoms were reported regarding the genitourinary system. Derm: No signs and/or symptoms reported regarding the dermatologic system. Musculoskeletal: Reports pain in right arm Pain is 10 out of 10 on a pain scale. APPRENTICE STYLIST: 21:54 unknown bm8 Historical: - Allergies: 19:04 No Known Allergies; tm6 - PMHx: 19:04 Anxiety; depressive disorder; Myocardial infarction; Pancreatitis; PTSD; tm6 - PSHx: 19:04 cardiac stent; tm6 - Immunization history:: Flu vaccine is not up to date. - Infectious Disease History:: Denies. - Social history:: Smoking status: Patient reports the use of cigarette tobacco products, smokes one-half pack cigarettes per day, Patient/guardian denies using alcohol. Screenin:44 [facility] ED Fall Risk Assessment (Adult) History of falling in the last 3 months, bm8 including since admission No falls in past 3 months (0 pts) Confusion or Disorientation No (0 pts) Intoxicated or Sedated No (0 pts) Impaired Gait No (0 pts) Mobility Assist Device Used No (0 pt) Altered Elimination No (0 pt) Score/Fall Risk Level 0 - 2 = Low Risk Oriented to surroundings, Maintained a safe environment, Educated pt \T\ family on fall prevention, incl call for assistance when getting out of bed, Assessed \T\ reinforced patient's understanding of fall precautions, Hourly rounding (assess needs \T\ fall precautionary measures) done, Used ambulatory aids as needed (educated on \T\ assisted with), Used gait belt as appropriate. Abuse screen: Denies threats or abuse. Nutritional screening: No deficits noted. Tuberculosis screening: No symptoms or risk factors identified. Assessment: 19:44 General: Appears in no apparent distress. uncomfortable, Behavior is calm, cooperative, bm8 appropriate for age. Pain: Complains of pain in right arm Pain currently is 10 out of 10 on a pain scale. Neuro: No deficits noted. Level of Consciousness is awake, alert, obeys commands, Oriented to person, place, time, situation, Appropriate for age. Cardiovascular: Reports chest pain, Heart tones S1 S2 present Capillary refill < 3 seconds in bilateral fingers Patient's skin is warm and dry. Rhythm is sinus rhythm. Respiratory: Airway is patent Respiratory effort is even, unlabored, Respiratory pattern is regular, symmetrical, Breath sounds are clear bilaterally. GI: No signs and/or symptoms were reported involving the gastrointestinal system. : No signs and/or symptoms were reported regarding the genitourinary system. EENT: No signs and/or symptoms were reported regarding the EENT system. Derm: No signs and/or symptoms reported regarding the dermatologic system. Musculoskeletal: Swelling present in dorsal aspect of right forearm Reports pain in right arm since post cardiac cath procedure yesterday . Pain is 10 out of 10 on a pain scale. 20:32 Reassessment: pt to ct. bm8 21:08 Reassessment: Patient appears in no apparent distress at this time. Patient and/or bm8 family updated on plan of care and expected duration. Pain level reassessed. Patient is alert, oriented x 3, equal unlabored respirations, skin warm/dry/pink. Patient states symptoms have improved. Pain: Pain currently is 8 out of 10 on a pain scale. 21:47 Reassessment: Patient appears in no apparent distress at this time. No changes from bm8 previously documented assessment. Patient and/or family updated on plan of care and expected duration. Pain level reassessed. Patient is alert, oriented x 3, equal unlabored respirations, skin warm/dry/pink. pain still 8/10, provider aware. Vital Signs: 19:01 BP 132 / 99; Pulse 102; Resp 20; Temp 98.3(O); Pulse Ox 94% on R/A; MAP 108 mmHg; tm6 Weight 109.32 kg; Height 5 ft. 2 in. ; Pain 10/10; 19:44 BP 150 / 123; Pulse 90; Resp 18; Temp 98.3; Pulse Ox 97% on R/A; Pain 10/10; bm8 20:15 BP 136 / 111; Pulse 85; Resp 17; Temp 98.3; Pulse Ox 97% ; Pain 7/10; bm8 21:08 BP 108 / 89; Pulse 80; Resp 18; Temp 98.5; Pulse Ox 96% ; Pain 8/10; bm8 21:47 BP 112 / 92; Pulse 92; Resp 18; Temp 98.5; Pulse Ox 95% ; Pain 8/10; bm8 19:01 Body Mass Index 44.08 (109.32 kg, 157.48 cm) tm6 19:01 Pain Scale: Adult tm6 19:44 Pain Scale: Adult bm8 20:15 Pain Scale: Adult bm8 21:08 Pain Scale: Adult bm8 21:47 Pain Scale: Adult bm8 Radha Coma Score: 19:44 Eye Response: spontaneous(4). Motor Response: obeys commands(6). Verbal Response: bm8 oriented(5). Total: 15. 20:15 Eye Response: spontaneous(4). Motor Response: obeys commands(6). Verbal Response: bm8 oriented(5). Total: 15. 21:08 Eye Response: spontaneous(4). Motor Response: obeys commands(6). Verbal Response: bm8 oriented(5). Total: 15. 21:47 Eye Response: spontaneous(4). Motor Response: obeys commands(6). Verbal Response: bm8 oriented(5). Total: 15. ED Course: 18:54 Patient arrived in ED. madeleine 18:55 Johny Chahal MD is Attending Physician. sp3 19:02 Dayne Moody, RN is Primary Nurse. bm8 19:04 Triage completed. tm6 19:04 Arm band placed on left wrist. tm6 19:44 Patient has correct armband on for positive identification. Placed in gown. Bed in low bm8 position. Side rails up X2. Client placed on continuous cardiac and pulse oximetry monitoring. NIBP monitoring applied. manager of case management on. Pulse ox on. NIBP on. Door closed. Noise minimized. Warm blanket given. Pillow given. Verbal reassurance given. Head of bed. 19:44 No provider procedures requiring assistance completed. Initial lab(s) drawn, by ne, bm8 sent to lab. EKG done, by ED staff, reviewed by Johny Chahal MD. Inserted saline lock: 22 gauge in left forearm, using aseptic technique. Blood collected. Flushed with 10 mL NS. Patient maintains SpO2 saturation greater than 95% on room air. 20:04 Attending Physician role handed off by Johny Chahal MD sp4 20:04 Marty Singh MD is Attending Physician. sp4 20:45 Upper Ext Angio In Process Unspecified. EDMS 21:47 Neil Arthur MD is Referral Physician. sp4 21:53 Provided Education on: post er care. bm8 21:53 IV discontinued, intact, bleeding controlled, No redness/swelling at site. Pressure bm8 dressing applied. Administered Medications: 19:55 Drug: Ketorolac IVP 15 mg IVP once Route: IVP; Site: left forearm; bm8 20:37 Follow up: Response: No adverse reaction bm8 19:55 Drug: Ondansetron IVP 4 mg IVP once; over 2 minutes Route: IVP; Site: left forearm; bm8 20:37 Follow up: Response: No adverse reaction bm8 20:30 Drug: morphine IVP or IV 4 mg IVP once over 4 mins Route: IVP; Infused Over: 4 mins; bm8 Site: left forearm; 20:37 Follow up: Response: No adverse reaction bm8 20:30 Drug: Diazepam PO 5 mg PO once Route: PO; bm8 20:37 Follow up: Response: No adverse reaction bm8 Medication: 19:44 VIS not applicable for this client. bm8 Outcome: 21:47 Discharge ordered by . sp4 21:53 Discharged to home ambulatory, bm8 21:53 Condition: stable 21:53 Discharge instructions given to patient, family, Instructed on discharge instructions, follow up and referral plans. medication usage, safety practices, Demonstrated understanding of instructions, follow-up care, medications, 21:58 Patient left the ED. bm8 Signatures: Dispatcher [employer] EDMS Mayank Butler MD MD cha Patel, Setul, MD MD sp3 Marty Singh MD MD sp4 Kaylee Verdugo RN RN tm6 Dayne Moody RN RN bm8 Corrections: (The following items were deleted from the chart) 19:06 18:56 Chief complaint: tm6 tm6
[2024-06-13 01:14] VITALS: TEMP 98.5
[2024-06-13 01:15] VITALS: BP 112/92; O2SAT 95
--- OUTSIDE RECORDS SUMMARY | 2024-06-15 08:32 | XMS REPORT | Continuity of Care Document ---
Author Name Unknown Address [address] [facility] [address] [place] [address] [facility] thconnect Address [address] [facility] [address] [place] [address] Support Name Relationship Address Phone RACHEL CASH Father Unknown Unavailable PHYSICIAN, NO Primary Care Physician Unknown Unav ailable MD MORA POLLOCK A Emergency Provider [address] [place] [address] JAN COX natural parent [address] [address] MD SHERIDAN MCMANUS Emergency Provider [facility], [place] [address] CHARITY ROCA Guarantor [address] [place] [address] MD RIDDH[place] [address] MD AN IRIZARRY Emergency Provider [facility], [place] [address] MD CARLOS SOLANO A Primary Care Physician [address] [facility] 3 [place] [address] OTHER, ENTER NAME IN NOTES Primary Care Physician Unknown Unavailable MD Arelis Kern Emergency Provider [address] [place] [address] MD SHAN BUSCH Attending Provider [address] [place] [address] PIYUSH JUAREZ parent [address] [place] [address] MD TAVARES MG JR, JR. Emergency Provider [address] [place] [address] Leyda Petty Mother Unknown Unavailable Rachel Cox Father [address] [place] [address] one else per patient, No Emergency Contact Unknown Unavailable Rachel Cox Father [address] [place] [address] 1 Personal Relationship Unknown Unavai lable Unavailable Personal Relationship Unknown Unavai lable Rachel Cox [address] [place] [address] PATIENT, NO ONE ELSE PER Personal Relationship Unknown Unavailable Care Team Providers Care Information Systems Security Officer Name Role JOANNE Noe Primary Care Physician Unavailab JOANNE Hood Attending Clinician Unavailable SANDY GARCIA Attending Clinician Unavailable SANDY GARCIA Attending Clinician Unavailable Sandy Walker Attending Clinician [phone] OLIVIA GARCIA Attending Clinician Unavailable OLIVIA GARCIA Attending Clinician Unavailable Olivia Garcia MD Attending Clinician [phone] GISELLE OSORIO Attending Clinician Unavailable ANNALISE WRIGHT Attending Clinician Unavailable Annalise Wright PA-C Attending Clinician [phone] Attending Clinician Unavailable Alesha Roy MD Attending Clinician + ARELIS KERN Attending Clinician Unavailab bailee PATRICIA, K Eleni Attending Clinician [phone] FARTUN GILLESPIE Attending Clinician Unavailable TAVARES MG JR Attending Clinician Leigh Pink NP Attending Clinician [phone] COSMO Attending Clinician Unavailable SHERIDAN MCMANUS Attending Clinician UnavailROBERTO Melgar Attending Clinician Unavailable Roberto Richards MD Attending Clinician [phone] SHAN BUSCH Attending Clinician Unavailable RIDDHI MYLES Attending Clinician UnavailAN Garcia Attending Clinician Unavailable NARAYAN NARVAEZ Attending Clinician Unavailable Narayan Narvaez DO Attending Clinician + Saleem EDWARD Attending Clinician Unavailable Saleem Perez Attending Clinician [phone] BRITTNI PADGETT S Attending Clinician Unavailable Brittni Elam S Attending Clinician [phone] JESÚS MONTERO Attending Clinician Unavailable Leeanne Wise NP Attending Clinician + [phone] Jesús Montero MD Attending Clinician +[phone] FELTON Attending Clinician Unavailable MELIDA LONGORIA Attending Clinician Unavailable Melida Longoria MD Attending Clinician +[phone] WIL MCQUEEN Attending Clinician Unavailable Wil Joseph Attending Clinician +14 DEE WANG Attending Clinician Unavaila ble Felipe SIEBEL SOLUTION ARCHITECT, Dee F Attending Clinician [phone] Doctor Unassigned, [place] Attending Clinician U shannanailCEM Mccullough Attending Clinician Unavailable Cem Cruz MD Attending Clinician [phone] Shelley Rosas RN Attending Clinician + [phone] Bal Cuevas Attending Clinician +53 BAL HASSAN Attending Clinician Unavailable Tremaine Jon Attending Clinician [phone] TREMAINE BECERRA Attending Clinician Unavailable LEEANNE WISE Attending Clinician Unavailable MORA POLLOCK Attending Clinician Unavailable Best Rodríguez Attending Clinician [phone] BEST TAYLOR Attending Clinician Unavailable Marbella Rizo RN Attending Clinician Unavailab Abdias Vuong Attending Clinician + ABDIAS ROBERTSON Attending Clinician Unavailable Kamryn Sheppard RN Attending Clinician Unavail able Bushra Rios DO Attending Clinician + [phone] BUSHRA RIOS Attending Clinician Unavailab SINCERE morocho [...] Clinician Unavailable OLIVIA GARCIA Admitting Clinician Unavailable ANNALISE WRIGHT Admitting Clinician Unavailable OLIVIA GARCIA Admitting Clinician Unavailable ROBERTO RICHARDS Admitting Clinician Unavailable SAHN BUSCH Admitting Clinician Unavailable RIDDHI MYLES Admitting Clinician Unav NARAYAN Thompson Admitting Clinician Unavailable JESÚS MONTERO Admitting Clinician Unavailable Jesús Montero MD Admitting Clinician [phone] FELTON Admitting Clinician Unavailable MELIDA LONGORIA Admitting Clinician Unavailable WIL MCQUEEN Admitting Clinician Unavailable DEE WANG Admitting Clinician Unavaila CEM Gomez Admitting Clinician Unavailable TREMAINE BECERRA Admitting Clinician Unavailable LEEANNE WISE Admitting Clinician Unavailable Saleem EDWARD Admitting Clinician Unavailable BEST TAYLOR Admitting Clinician Unavailable ABDIAS ROBERTSON Admitting Clinician Unavailable Payers Payer Name Policy Type Policy Number Effective Date Expirati on Date Source RAMSES TAYLOR SILVER 5 O [employer]AKER 94 [place] 9 [id number] 2023 00:00:00 RAMSES Caro/ KELLEE MCADAMS [id number] 2023 00:00:00 NAHOMI BCPEPE BLUE ADVANTAGE O [id number] 2020 00:00:00 Problems Condition Name Condition Details Condition Category Status Onset Date Resolution Date Last Treatment Date Treating Clinician Comments Source Generalize d abdominal pain Generalize d abdominal pain Disease Active 2023-07 00:00: 00 [facility] Coronary artery disease Coronary artery disease Disease Active 12-12 00:00: 00 Kellee pinedo Status post arterial stent Status post [...] level Disease Active 2020-07 0-02 00:00: 00 [facility] Snores Snores Disease Active 2020-07 0-02 00:00: 00 [facility] Morbid obesity with body mass index of 40.0-49.9 Morbid obesity with body mass index of 40.0-49.9 Disease Active 2020-07 0-01 00:00: 00 [facility] Abdominal pain Problem [facility] Acute coronary syndrome without high troponin [facility] Adrenal mass Problem [facility] Adrenal nodule Problem [facility] Encounter for counseling regarding advance [facility] Allergic rhinitis [facility] Angina pectoris Problem [facility] Anxiety and depression Problem [facility] Chest pain Problem [facility] Gastroente ritis Problem [facility] Malaise Problem [facility] Otitis externa of left ear Problem [facility] Cyst of ovary Problem [facility] Post traumatic stress disorder (PTSD) Problem [facility] Tobacco abuse Problem [facility] Urinary tract infection Problem [facility] No known active problems No known active problems Disease [facility] Allergies, Adverse Reactions, Alerts Allergy Name Allergy Type Status Severity Reaction(s) Onset Date Inactive Date Treating Clinician Comments Source NO KNOWN ALLERGIE S Drug Class Active [facility] Social History Social Habit Start Date Stop Date Quantity Comments Source History of tobacco use [facility] Gender identity [facility] Sexual orientation Saleem Buckley - External ASSERTION [...] 00:00:00 2023-10-28 00:00:00 Kellee Buckley - External Sex 2023-07-17 22:17:29 2023-07-17 22:17:29 Female (finding) Kellee Buckley - External Tobacco Comment 2023-02-15 00:00:00 2023-02-15 00:00:00 In the process of quitting. Now smokes 5 cigarettes/ day from 2 packs per day [facility] Tobacco use and exposure 2023-02-15 00:00:00 2023-02-15 00:00:00 User of smokeless tobacco [facility] Exposure to SARS-CoV-2 (event) 2021-12-30 00:00:00 2022-01-09 16:34:00 Unable to assess [facility] Education 2021-04-07 00:00:00 2021-04-07 00:00:00 13 [facility] Sex assigned at 1980 00:00:00 1980 00:00:00 Kellee Buckley - [place] Smoking Status Start Date Stop Date Source Smokes tobacco daily 2023-02-15 00:00:00 [facility] Unknown if ever smoked [facility] Medications Ordered Medication Name Filled Medication Name Start Date Stop Date Current Medication? Ordering Clinician Indication Dosage Frequency Signature (SIG) Comments Components Source iopamidol (ISOVUE 370-500 mL) injection 100 mL 2023-07 06:30: 00 06-15 06:30 :00 Yes [id number] 100mL 100 mL, Intravenou s, ONCE, 1 dose, On Sat06/15/24 at 0030, Routine [facility] morpHINE (4 mg/mL) injection 4 mg 2023-07 06:00: 00 06-15 05:57 :00 No 4mg 4 mg, Slow IV Push, ONCE, 1 dose, On Sat06/15/24 at 0000, STAT [facility] proMETHazin e (PHENERGAN) 12.5 mg in NS 50 mL IV piggyback (CNR) 2023-07 05:15: 00 06-15 05:56 :00 No 12.5mg 12.5 mg, IV Piggyback, at 200 mL/hr Administer over 15 Minutes, ONCE, 1 dose, On Sat06/14/24 at 2315, [facility] NaCl 0.9% (NS) IV infusion 1,000 mL 2023-07 04:30: 00 06-15 05:28 :00 No 1000mL at 999 mL/hr, Intravenou s, ONCE, 1 dose, On 06/14/24 at 2230, Routine [facility] fentanyl PF (SUBLIMAZE (PF)) injection 50 mcg 2023-07 04:00: 00 06-15 04:23 :00 No 50ug 50 mcg, Slow IV Push, ONCE, 1 dose, On 06/14/24 at 2200, Routine [facility] famotidine (PEPCID (PF)) injection 20 mg 2023-07 03:30: 00 06-15 04:18 :00 No 20mg 20 mg, Slow IV Push, ONCE, 1 dose, On 06/14/24 at 2130, [facility] ondansetron (ZOFRAN (PF)) injection 4 mg 2023-07 03:30: 00 06-15 04:20 :00 No 4mg 4 mg, Slow IV Push, ONCE, 1 dose, On 06/14/24 at 2130, Administer over 2-5 Minutes, 2 mL [facility] proMETHazin e 25 mg tablet 2023-07 00:00: 00 Yes [id number] 25mg Take 1 tablet by mouth every 6 (six) hours as needed for Nausea and Vomiting (N/V). [facility] morpHINE (4 mg/mL) injection 4 mg 2023-07 08:15: 00 06-07 08:11 :00 No 4mg 4 mg, Slow IV Push, ONCE, 1 dose, On 06/07/24 at 0215, STAT [facility] ondansetron (ZOFRAN (PF)) injection 4 mg 2023-07 05:15: 00 06-07 05:23 :00 No 4mg 4 mg, Slow IV Push, ONCE, 1 dose, On 06/06/24 at 2315, Administer over 2-5 Minutes, 2 mL [facility] morpHINE (4 mg/mL) injection 4 mg 2023-07 05:15: 00 06-07 05:21 :00 No 4mg 4 mg, Slow IV Push, ONCE, 1 dose, On Sat06/06/24 at 2315, STAT [facility] nitroglycer in (NITROSTAT) sublingual tablet 0.4 mg 2023-07 05:08: 35 Yes .4mg 0.4 mg, Sublingual , Q5MIN PRN, 3 doses, Starting on Sat06/06/24 at 2308, Until Discontinu ed, ROSELYN, Chest pain [facility] hydrOXYzine Pamoate 50 MG oral Capsule 2023-07 13:02: 35 Yes [id number] 50mg Q.5D Take 1 capsule (50 mg total) by mouth 2 times daily as needed for anxiety. Kellee pinedo Vitamin D, Ergocalcife rol, 1.25 MG (47318 UT) oral Capsule 2023-07 00:00: 00 Yes [id number] 27003V Q1W Take 1 capsule (50,000 units total) by mouth once a week. Kellee pinedo ondansetron (ZOFRAN-ODT ) disintegrat ing tablet 4 mg 2023-07 20:15: 00 05-19 19:27 :00 No 4mg 4 mg, Oral, ONCE, 1 dose, On Sat05/19/24 at 1415, Routine [facility] HYDROcodone -acetaminop hen (NORCO 5) tablet 1 tablet 2023-07 18:00: 00 05-19 19:27 :00 No 1{tbl} 1 tablet, Oral, ONCE, 1 dose, On Sat05/19/24 at 1200, [facility] ondansetron 4 mg disintegrat ing tablet 2023-07 00:00: 00 Yes [id number] 4mg Take 1 tablet by mouth every 8 (eight) hours as needed for Nausea and Vomiting (N/V). [facility] hydrOXYzine Pamoate 50 MG oral Capsule 2023-07 10:26: 29 Yes [id number] 50mg Q.5D Take 1 capsule (50 mg total) by mouth 2 times daily as needed for anxiety. Kellee pinedo ondansetron (ZOFRAN (PF)) injection 4 mg 2023-07 03:45: 00 05-18 03:42 :00 No 4mg 4 mg, Slow IV Push, ONCE, 1 dose, On 05/17/24 at 2145, [facility] morpHINE (4 mg/mL) injection 4 mg 2023-07 03:45: 00 05-18 03:42 :00 No 4mg 4 mg, Slow IV Push, ONCE, 1 dose, On 05/17/24 at 2145, STAT [facility] ondansetron (ZOFRAN (PF)) injection 4 mg 2023-07 01:00: 00 05-18 01:21 :00 No 4mg 4 mg, Slow IV Push, ONCE, 1 dose, On 05/17/24 at 1900, [facility] fentanyl PF (SUBLIMAZE (PF)) injection 50 mcg 2023-07 01:00: 00 05-18 01:21 :00 No 50ug 50 mcg, Slow IV Push, ONCE, 1 dose, On 05/17/24 at 1900, [facility] Methocarbam ol 750 MG oral Tablet 2023-07 00:00: 00 Yes [id number] 750mg Q.25D Take 1 tablet (750 mg total) by mouth 4 times daily. Kellee pinedo Suvorexant (Belsomra) 20 MG oral Tablet 2023-07 00:00: 00 Yes [id number] 1{tbl} QD Take 1 tablet by mouth nightly. Kellee pinedo Acetaminoph en-Codeine 300-30 MG oral Tablet 2023-07 00:00: 00 Yes [id number] Kellee pinedo Lorazepam (ATIVAN) 0.5 MG oral Tablet tablet 2023-07 00:00: 00 Yes [id number] .5mg Q.5D Take 1 tablet (0.5 mg total) by mouth 2 times daily as needed for anxiety. Kellee pinedo Sertraline HCl 50 MG oral Tablet 2023-07 00:00: 00 Yes [id number] 50mg QD Take 1 tablet (50 mg total) by mouth daily Take in addition to 100 mg tablet for a total dose of 150 mg daily. Kellee pinedo Sertraline HCl 100 MG oral Tablet 2023-07 00:00: 00 Yes [id number] 100mg Take 1 tablet (100 mg total) by mouth every morning Take in addition to 50 mg tablet for a total dose of 150 mg daily. Kellee pinedo Isosorbide Mononitrate CR 30 MG oral TABLET SR 24 HR 2023-07 00:00: 00 Yes [id number] TAKE THREE TABLETS BY MOUTH ONCE DAILY (90MG DAILY) Kellee pinedo ondansetron (ZOFRAN (PF)) injection 4 mg 2023-07 01:30: 00 05-08 00:31 :00 No 4mg 4 mg, Slow IV Push, ONCE, 1 dose, On [place] 05/07/24 at 2030, [facility] morpHINE (4 mg/mL) injection 4 mg 2023-07 01:30: 00 05-08 01:20 :00 No 4mg 4 mg, Slow IV Push, ONCE, 1 dose, On [place] 05/07/24 at 2030, STAT [facility] ketorolac (TORADOL) injection 15 mg 2023-07 01:30: 00 05-08 00:30 :00 No 15mg 15 mg, Slow IV Push, ONCE, 1 dose, On [facility] 05/07/24 at 2030, [facility] phenazopyri dine 200 mg tablet 2023-07 00:00: 00 Yes [id number] 200mg Take 1 tablet by mouth in the morning and 1 tablet at noon and 1 tablet in the evening. [facility] Rosuvastati n Calcium 20 MG oral Tablet 2023-07 00:00: 00 Yes 20mg QD Take 1 tablet (20 mg total) by mouth daily. Kellee pinedo Metoprolol Succinate 25 MG oral TABLET SR 24 HR 2024-1 0-29 00:00: 00 Yes [id number] 25mg QD Take 1 tablet (25 mg total) by mouth daily. Kellee pinedo Dicyclomine HCl 20 MG oral Tablet 2023-07 0 00:00: 00 Yes TAKE 1 TABLET BY MOUTH FOUR TIMES A DAY NEEDED FOR PAIN Kellee pinedo Ondansetron (ZOFRAN) 4 MG oral TABLET DISPERSIBLE 2023-07 0 00:00: 00 Yes 4mg Q.[id number] 3D Take 1 tablet (4 mg total) by mouth 3 times daily. Kellee pinedo Belsomra 20 MG oral Tablet 2023-07 00:00: 00 05-18 00:00 :00 No [id number] 1{tbl} QD take 1 tablet by mouth every day at night Kellee pinedo Nitrofurant oin (Macrobid *) 100 Mg CAP Nitrofurant oin (Macrobid *) 100 Mg CAP 2023-07 004 18:32: 00 Yes 100 [facility] Ondansetron Hcl (Zofran *) 4 Mg Tablet Disint Ondansetron Hcl (Zofran *) 4 Mg Tablet Disint 2023-07 004 18:32: 00 Yes 1 [facility] cefTRIAXone (ROCEPHIN) 1,000 mg in NaCl 0.9% (NS) 100 mL MINI-BAG 2023-07 0 01:15: 00 04-09 01:24 :00 No 1000mg 1,000 mg, IV Piggyback, ONCE, 1 dose, On Sat04/08/24 at 2015, Administer over 30 Minutes, 100 mL, Reason for Anti-Infec tive: Documented Infection, Documented Infection Site: Urine, Duration of Therapy: Once (ED) [facility] fentanyl PF (SUBLIMAZE (PF)) injection 25 mcg 2023-07 0 00:15: 00 04-09 00:18 :00 No 25ug 25 mcg, Slow IV Push, ONCE, 1 dose, On Sat04/08/24 at 1915, STAT [facility] NaCl 0.9% (NS) bolus infusion 1,000 mL 2023-07 23:45: 00 04-09 01:24 :00 No 1000mL at 999 mL/hr, 1,000 mL, IV Infusion, ONCE, 1 dose, On Sat04/08/24 at 1845, [facility] ondansetron (ZOFRAN (PF)) injection 4 mg 2023-07 23:00: 00 04-08 22:57 :00 No 4mg 4 mg, Slow IV Push, ONCE, 1 dose, On Sat04/08/24 at 1800, [facility] ketorolac (TORADOL) injection 30 mg 2023-07 23:00: 00 04-08 22:57 :00 No 30mg 30 mg, Slow IV Push, ONCE, 1 dose, On Sat04/08/24 at 1800, [facility] sodium chloride (NS) injection 5 mL 2023-07 22:33: 00 Yes 5mL 5 mL, Intravenou s, PRN, Starting on Sat04/08/24 at 1733, Until Discontinu ed, Routine, IV line flushing [facility] ciprofloxac in HCl 500 mg tablet 2023-07 00:00: 00 Yes [id number] 500mg Take 1 tablet by mouth in the morning and 1 tablet in the evening. [facility] Promethazin e HCl (PHENERGAN) 25 MG oral Tablet 03-14 00:00: 00 Yes 25mg Q.[id number] 3D Take 1 tablet (25 mg total) by mouth every 8 hours as needed for nausea. Kellee pinedo Clopidogrel Bisulfate (PLAVIX) 75 MG oral Tablet 02-09 00:00: 00 Yes [id number] 75mg QD take 1 tablet by mouth every day Kellee pinedo Aspirin Low Dose 81 MG oral Tablet Delayed Response 02-09 00:00: 00 Yes [id number] 81mg QD take 1 tablet by mouth every day Kellee pinedo Methylpredn isolone Acetate (Depo-Medro l) 40 mg/ml - Physician Administere d ([id number]) 02-05 13:21: 25 No [id number] 40mg 40 mg, Physician Administer ed, ONCE, 1 dose, On [place] 02/06/24 at 1145 Kellee pinedo hydrOXYzine Pamoate 50 MG oral Capsule 02-05 11:06: 49 Yes [id number] 50mg Q.5D Take 1 capsule (50 mg total) by mouth 2 times daily as needed for anxiety. Kellee pinedo Isosorbide Mononitrate CR 60 MG oral TABLET SR 24 HR 02-04 00:00: 00 Yes Kellee pinedo Lorazepam (ATIVAN) 0.5 MG oral Tablet tablet 01-09 00:00: 00 Yes [id number] .5mg Q.5D take 1 tablet by mouth 2 times daily as needed for anxiety Kellee pinedo Aspirin (Aspirin Low Dose) 81 MG oral Tablet Delayed Response 01-05 00:00: 00 Yes [id number] 81mg QD Take 1 tablet (81 mg total) by mouth daily. Kellee pinedo Atorvastati n Calcium 40 MG oral Tablet 01-05 00:00: 00 Yes [id number] 40mg QD Take 1 tablet (40 mg total) by mouth daily. Kellee pinedo Suvorexant (Belsomra) 20 MG oral Tablet 01-05 00:00: 00 Yes [id number] 1{tbl} QD Take 1 tablet by mouth nightly. Kellee pinedo Clopidogrel Bisulfate (PLAVIX) 75 MG oral Tablet 01-05 00:00: 00 Yes [id number] 75mg QD Take 1 tablet (75 mg [...] MG oral Capsule 12-12 09:19: 23 Yes [id number] 50mg Q.5D Take 1 capsule (50 mg total) by mouth 2 times daily as needed for anxiety. Kellee pinedo Lorazepam (ATIVAN) 0.5 MG oral Tablet tablet 12-12 00:00: 00 Yes [id number] .5mg Q.5D Take 1 tablet (0.5 mg total) by mouth 2 times daily as needed for anxiety. Kellee pinedo Aspirin Low Dose 81 MG oral Tablet Delayed Response 12-05 00:00: 00 Yes [id number] 81mg Take 1 tablet (81 mg total) by mouth daily. Kellee pinedo Atorvastati n Calcium 40 MG oral Tablet 12-05 00:00: 00 Yes [id number] 40mg Take 1 tablet (40 mg total) by mouth daily. Kellee pinedo Clopidogrel Bisulfate (PLAVIX) 75 MG oral Tablet 12-05 00:00: 00 Yes [id number] 75mg Take 1 tablet (75 mg total) by mouth daily. Kellee pinedo Mometasone Furo-Formot camelia Fum (Dulera) 200-5 MCG/ACT inhalation Aerosol 12-05 00:00: 00 05-18 00:00 :00 No TWICE DAILY Kellee pinedo Vitamin D, Ergocalcife rol, 1.25 MG (38336 UT) oral Capsule 12-04 00:00: 00 Yes [id number] 16965I Q1W Take 1 capsule (50,000 units total) by mouth once a week. Kellee pinedo Ferrous Sulfate 325 (65 Fe) MG oral Tablet 12-04 00:00: 00 Yes [id number] 325mg QD Take 1 tablet (325 mg total) by mouth daily (with breakfast) . Kellee pinedo Mirtazapine 45 MG oral Tablet 12-02 10:49: 07 12-02 00:00 :00 No [id number] 45mg Take 1 tablet (45 mg total) by mouth nightly. Kellee pinedo hydrOXYzine Pamoate 50 MG oral Capsule 12-02 10:49: 04 Yes [id number] 50mg Q.5D Take 1 capsule (50 mg total) by mouth 2 times daily as needed for anxiety. Kellee pinedo Ascorbic Acid 500 MG oral Tablet 12-02 10:48: 55 12-02 00:00 :00 No 50mg Take 50 mg by mouth. Kellee pinedo Suvorexant (Belsomra) 20 MG oral Tablet 12-02 00:00: 00 Yes [id number] 1{tbl} Take 1 tablet by mouth nightly. Kellee pinedo Lorazepam 1 MG oral Tablet 12-02 00:00: 00 12-12 00:00 :00 No [id number] 1mg Q.5D Take 1 tablet (1 mg total) by mouth 2 times daily as needed for anxiety. Kellee pinedo Doxepin HCl 3 MG oral Tablet 11-27 00:00: 00 05-18 00:00 :00 No [id number] 1{tbl} QD TAKE 1 TABLET BY MOUTH EVERY DAY AT NIGHT Kellee pinedo Aripiprazol e 5 MG oral Tablet 11-27 00:00: 00 05-18 00:00 :00 No [id number] 5mg QD TAKE 1 TABLET (5 MG TOTAL) BY MOUTH DAILY. Kellee pinedo Mirtazapine 45 MG oral Tablet 10-28 13:20: 59 Yes [id number] 45mg Take 1 tablet (45 mg total) by mouth nightly. Kellee pinedo Ascorbic Acid 500 MG oral Tablet 10-28 13:20: 47 Yes 50mg Take 50 mg by mouth. Kellee pinedo hydrOXYzine Pamoate 50 MG oral Capsule 10-28 13:20: 47 10-28 00:00 :00 No [id number] 50mg Q.5D Take 1 capsule (50 mg total) by mouth every 4 to 6 hours as needed. Kellee pinedo Sertraline HCl 150 MG oral Capsule 10-28 13:20: 03 10-28 00:00 :00 No 150mg Take 150 mg by mouth daily. Kellee pinedo Doxepin HCl 3 MG oral Tablet 10-28 00:00: 00 Yes [id number] 1{tbl} Take 1 tablet by mouth nightly. Kellee pinedo Aripiprazol e 5 MG oral Tablet 10-28 00:00: 00 Yes [id number] 5mg Take 1 tablet (5 mg total) by mouth daily. Kellee pinedo Suvorexant 10 MG oral Tablet 10-28 00:00: 00 12-02 00:00 :00 No [id number] 1{tbl} Take 1 tablet by mouth nightly. Kellee pinedo Sertraline HCl 50 MG oral Tablet 10-26 00:00: 00 Yes [id number] Kellee pinedo HYDROcodone -acetaminop hen (NORCO) 10-325 mg tablet 1 tablet 10-10 06:15: 00 10-10 05:25 :00 No 1{tbl} 1 tablet, Oral, ONCE NOW, 1 dose, On Sat10/11/23 at 0115, [facility] iopamidol (ISOVUE 370-500 mL) injection 100 mL 10-10 05:00: 00 10-10 05:00 :00 No [id number] 100mL 100 mL, Intravenou s, ONCE, 1 dose, On Sat10/11/23 at 0000, Routine [facility] ketorolac (TORADOL) injection 30 mg 10-10 04:30: 00 10-10 03:29 :00 No 30mg 30 mg, Slow IV Push, ONCE, 1 dose, On [place] 10/10/23 at 2330, Routine [facility] NaCl 0.9% (NS) IV infusion 1,000 mL 10-10 04:15: 00 10-10 05:18 :00 No 1000mL at 999 mL/hr, Intravenou s, ONCE, 1 dose, On [place] 10/10/23 at 2315, Routine [facility] ondansetron (ZOFRAN (PF)) injection 4 mg 10-10 04:00: 00 10-10 03:54 :00 No 4mg 4 mg, Slow IV Push, ONCE, 1 dose, On [place] 10/10/23 at 2300, [facility] morpHINE (4 mg/mL) injection 4 mg 10-10 04:00: 00 10-10 03:54 :00 No 4mg 4 mg, Slow IV Push, ONCE, 1 dose, On [place] 10/10/23 at 2300, STAT [facility] traMADoL (ULTRAM) 50 mg tablet 10-10 00:00: 00 Yes [id number] 50mg Take 1 tablet by mouth every 6 (six) hours as needed for Pain (scale 7-10). Indication s: acute pain [facility] ondansetron (ZOFRAN) 4 mg tablet 10-10 00:00: 00 Yes [id number] 4mg Take 1 tablet by mouth every 8 (eight) hours as needed for Nausea and Vomiting (N/V). [facility] ketorolac 10 mg tablet 10-10 00:00: 00 Yes [id number] 10mg Take 1 tablet by mouth every 6 (six) hours as needed for Pain (scale 7-10). [facility] phenazopyri dine 200 mg tablet 10-10 00:00: 00 Yes [id number] 200mg Take 1 tablet by mouth in the morning and 1 tablet at noon and 1 tablet in the evening. [facility] Sertraline HCl 100 MG oral Tablet 10-09 00:00: 00 Yes [id number] 100mg Take 1 tablet (100 mg total) by mouth every morning. Kellee pinedo acetaminoph en (TYLENOL) tablet 975 mg 2022-07 04:15: 00 07-02 03:11 :00 No 975mg 975 mg, Oral, ONCE, 1 dose, On Sat07/01/23 at 2215, [facility] dicyclomine (BENTYL) tablet 20 mg 2022-07 03:15: 00 07-02 03:11 :00 No 20mg 20 mg, Oral, ONCE, 1 dose, On Sat07/01/23 at 2115[facility] 30 mg 2022-07 03:15: 00 07-02 02:32 :00 No 30mg 30 mg, Slow IV Push, ONCE, 1 dose, On Sat07/01/23 at 2115, Routine [facility] ondansetron (ZOFRAN (PF)) injection 4 mg 2022-07 03:00: 00 07-02 02:03 :00 No 4mg 4 mg, Slow IV Push, ONCE, 1 dose, On Sat07/01/23 at 2100[facility] 0.9% (NS) bolus infusion 1,000 mL 2022-07 03:00: 00 07-02 04:10 :00 No 1000mL at 999 mL/hr, 1,000 mL, IV Infusion, ONCE, 1 dose, On Sat07/01/23 at 2100, STAT [facility] dicyclomine 20 mg tablet 2022-07 00:00: 00 Yes [id number] 20mg Take 1 tablet by mouth 4 (four) times daily. [facility] ondansetron 4 mg disintegrat ing tablet 2022-07 00:00: 00 Yes [id number] 4mg Take 1 tablet by mouth every 4 (four) hours as needed for Nausea and Vomiting (N/V). [facility] Alprazolam (Alprazolam *) 1 Mg TAB Alprazolam (Alprazolam *) 1 Mg TAB 2022-07 12:08: 00 06-14 00:00 :00 No 1 [facility] Trazodone Hcl (Desyrel 100 Mg*) 100 Mg TAB Trazodone Hcl (Desyrel 100 Mg*) 100 Mg TAB 2022-07 12:07: 00 06-06 12:08 :00 No 1 [facility] Aspirin (Aspirin Ec) 81 Mg Tablet Aspirin (Aspirin Ec) 81 Mg Tablet 2022-07 11:55: 00 07-07 00:00 :00 No 81 [facility] Alprazolam (Xanax 2 Mg*) 2 Mg TAB Alprazolam (Xanax 2 Mg*) 2 Mg TAB 2022-07 11:09: 40 06-06 12:08 :00 No 2 [facility] Trazodone Hcl (Desyrel 300 Mg*) 300 Mg TAB Trazodone Hcl (Desyrel 300 Mg*) 300 Mg TAB 2022-07 11:09: 39 05-13 15:45 :00 No 300 [facility] Alprazolam 1 MG oral Tablet 2022-07 00:00: 00 12-12 00:00 :00 No [id number] 2mg Take 2 tablets (2 mg total) by mouth 2 times daily. Kellee pinedo Pantoprazol e * (Protonix Ec *) 20 Mg Tablet Pantoprazol e * (Protonix Ec *) 20 Mg Tablet 2022-07 15:44: 00 06-05 00:28 :00 No 20 [facility] Sucralfate (Carafate *) 1 Gm TAB Sucralfate (Carafate *) 1 Gm TAB 2022-07 15:44: 00 06-05 00:28 :00 No 1 [facility] Ciprofloxac in Hcl (Cipro *) 500 Mg TAB Ciprofloxac in Hcl (Cipro *) 500 Mg TAB 2022-07 15:44: 00 05-16 00:00 :00 No 500 [facility] Pantoprazol e Sodium 20 MG oral Tablet Delayed Response 2022-07 00:00: 00 12-02 00:00 :00 No Take by mouth. Kellee pinedo ketorolac (TORADOL) injection 15 mg 2022-07 01:00: 00 05-10 00:09 :00 No 15mg 15 mg, Slow IV Push, ONCE, 1 dose, On Sat05/09/23 at 2000, [facility] proCHLORper azine (COMPAZINE) injection 5 mg 2022-07 23:30: 00 05-09 22:48 :00 No 5mg 5 mg, Slow IV Push, ONCE, 1 dose, On Sat05/09/23 at 1830, [facility] diphenhydrA MINE (BENADRYL) injection [...] 2022-07 00:45: 00 05-01 00:45 :00 No [id number] 100mL 100 mL, Intravenou s, ONCE, 1 [...] ONCE, 1 dose, On Sat04/30/23 at 1845, [facility] diphenhydrA MINE (BENADRYL) injection 25 mg 2022-07 23:00: 00 04-30 23:09 :00 No 25mg 25 mg, Slow IV Push, ONCE, 1 dose, On Sat04/30/23 at 1800, STAT [facility] dicyclomine 20 mg tablet 2022-07 00:00: 00 07-01 00:00 :00 No [id number] 20mg Take 1 tablet by mouth 4 (four) times daily. [facility] acetaminoph en (TYLENOL) tablet 1,000 mg 2022-07 02:45: 00 04-17 02:43 :00 No 1000mg 1,000 mg, Oral, ONCE, 1 dose, On Sat04/16/23 at 2145, [facility] ondansetron (ZOFRAN (PF)) injection 4 mg 2022-07 0 03:15: 00 04-09 02:13 :00 No 4mg 4 mg, Slow IV Push, ONCE, 1 dose, On Sat04/08/23 at 2215, [facility] dicyclomine (BENTYL) tablet 20 mg 2022-07 0 03:15: 00 04-09 02:16 :00 No 20mg 20 mg, Oral, ONCE, 1 dose, On Sat04/08/23 at 2215, Routine [facility] ondansetron (ZOFRAN (PF)) injection 4 mg 2022-07 23:45: 00 04-08 23:16 :00 No 4mg 4 mg, Slow IV Push, ONCE, 1 dose, On Sat04/08/23 at 1845, [facility] morpHINE (2 mg/mL) injection 4 mg 2022-07:45: 00 04-08 23:45 :00 No 4mg 4 mg, Slow IV Push, ONCE, 1 dose, On 04/08/23 at 1845, STAT [facility] ondansetron 4 mg disintegrat ing tablet 2022-07 00:00: 00 07-01 00:00 :00 No [id number] 4mg Take 1 tablet by mouth every 8 (eight) hours as needed for Nausea and Vomiting (N/V). [facility] dicyclomine 20 mg tablet 2022-07 00:00: 00 04-30 00:00 :00 No [id number] 20mg Take 1 tablet by mouth 4 (four) times daily. [facility] acetaminoph en (TYLENOL) tablet 1,000 mg 03-10 04:30: 00 03-10 04:29 :00 No 1000mg 1,000 mg, Oral, ONCE, 1 dose, On 03/09/23 at 2330, [facility] iopamidol (ISOVUE 370-500 mL) injection 85 mL 03-10 04:30: 00 03-10 04:30 :00 No [id number] 85mL 85 mL, Intravenou s, ONCE, 1 [...] 17 gram powder 03-09 00:00: 00 Yes [id number] 1{packe t} Take 1 Packet by mouth once daily as needed for Constipati on. [facility] Simethicone 125 mg 03-09 00:00: 00 Yes [id number] 125mg Take 1 capsule by mouth after meals and at bedtime as needed for Gas. [facility] iopamidol (ISOVUE 370-500 mL) injection 100 mL 03-02 06:15: 03-02 06:15 :00 No [id number] 100mL 100 mL, Intravenou s, ONCE, 1 dose, On 03/02/23 at 0115, Routine [facility] NaCl 0.9% (NS) IV infusion 1,000 mL 03-02 05:15: 00 Yes 1000mL at 999 mL/hr, Intravenou s, CONTINUOUS , Starting on 03/02/23 at 0015, Until Discontinu ed, Routine [facility] ketorolac (TORADOL) injection 30 mg 03-02 05:15: 00 03-02 04:20 :00 No 30mg 30 mg, Slow IV Push, ONCE, 1 dose, On 03/02/23 at 0015, Routine [facility] ondansetron (ZOFRAN (PF)) injection 4 mg 03-02 05:00: 00 03-02 05:24 :00 No 4mg 4 mg, Slow IV Push, ONCE, 1 dose, On 03/02/23 at 0000, [facility] morpHINE (4 mg/mL) injection 4 mg 03-02 05:00: 00 03-02 05:24 :00 No 4mg 4 mg, Slow IV Push, ONCE, 1 dose, On Sat03/02/23 at 0000, [facility] ondansetron (ZOFRAN (PF)) injection 4 mg 03-02 04:15: 00 03-02 04:21 :00 No 4mg 4 mg, Slow IV Push, ONCE, 1 dose, On Sat03/01/23 at 2315, [facility] Ondansetron HCl 4 MG oral Tablet 03-02 00:00: 00 05-18 00:00 :00 No [id number] 4mg [id number] 3D Take 1 tablet (4 mg total) by mouth every 8 hours as needed. [facility] pined[facility] dicyclomine 20 mg tablet 03-02 00:00: 00 04-30 00:00 :00 No [id number] 20mg Take 1 tablet by mouth every 6 (six) hours as needed for Abdominal pain. [facility] metoclopram tracy HCl (REGLAN) injection 10 mg 02-18 06:45: 00 02-18 06:43 :00 No 10mg 10 mg, Slow IV Push, ONCE, 1 dose, On Sat02/18/23 at 0145, [facility] morpHINE (4 mg/mL) injection 4 mg 02-18 05:30: 00 02-18 05:28 :00 No 4mg 4 mg, Slow IV Push, ONCE, 1 dose, On Sat02/18/23 at 0030, [facility] ondansetron (ZOFRAN (PF)) injection 4 mg 02-18 05:30: 00 02-18 05:28 :00 No 4mg 4 mg, Slow IV Push, ONCE, 1 dose, On Sat02/18/23 at 0030, [facility] NaCl 0.9% (NS) bolus infusion 1,000 mL 02-18 05:30: 00 02-18 05:15 :00 No 1000mL at 999 mL/hr, 1,000 mL, IV Infusion, ONCE, 1 dose, On 02/18/23 at 0030, STAT [facility] proMETHazin e (PHENERGAN) 25 mg in NaCl 0.9% (NS) 50 mL IV piggyback 02-18 04:30: 00 02-18 04:28 :00 No 25mg 25 mg, IV Piggyback, ONCE, 1 dose, On 02/17/23 at 2330, [facility] proMETHazin e 25 mg tablet 02-18 00:00: 00 Yes [id number] 25mg Take 1 tablet by mouth every [...] Hospital lactated ringers IV infusion 1,000 mL 2023-0 8-13 02:15: 00 02-17 22:14 :00 No 1000mL at 100 mL/hr, 1,000 mL, IV Infusion, CONTINUOUS , Starting on 02/16/23 at 2115, Until 02/17/23 at 1714, Routine [facility] traZODone (DESYREL) tablet 400 mg 02-17 02:00: 00 Yes 400mg 400 mg, Oral, QHS, First dose on [facility] 02/16/23 at 2100, Until Discontinu ed [facility] melatonin (MELATIN) tablet 9 mg 02-17 02:00: 00 Yes 9mg 9 mg, Oral, QHS, First dose on 02/16/23 at 2100, Until Discontinu ed [facility] morpHINE (2 mg/mL) injection 2 mg 02-17 01:07: 50 03-01 01:06 :50 No 2mg 2 mg, Slow IV Push, Q4HPRN, Starting on [facility] 02/16/23 at 2006, Until [place] 02/28/23 at 2005, Routine, Pain (scale 7-10) [facility] OLANZapine (ZyPREXA) tablet 15 mg 02-16 22:00: 00 Yes 15mg 15 mg, Oral, QPM, First dose on 02/16/23 at 1700, Until Discontinu ed, Routine [facility] buPROPion XL (WELLBUTRIN XL) tablet 150 mg 02-16 14:00: 00 Yes 150mg 150 mg, Oral, DAILY, First dose on [facility] 02/16/23 at 0900, Until Discontinu ed [facility] enoxaparin (LOVENOX) injection 40 mg 02-16 14:00: 00 Yes 40mg 40 mg, Subcutaneo us, DAILY, First dose on 02/16/23 at 0900, Until Discontinu ed, Routine [facility] methocarbam oL (ROBAXIN) tablet 500 mg 02-16 06:04: 59 Yes 500mg 500 mg, Oral, Q6HPRN, Starting on 02/16/23 at 0104, Until Discontinu ed, Routine, Muscle Spasms [facility] ALPRAZolam (XANAX) tablet 2 mg 02-16 06:03: 54 Yes 2mg 2 mg, Oral, TIDPRN, Starting on Sat02/16/23 at 0103, Until Discontinu ed, Anxiety [facility] lactated ringers IV infusion 1,000 mL 02-16 03:15: 00 02-16 23:14 :00 No 1000mL at 100 mL/hr, 1,000 mL, IV Infusion, CONTINUOUS , Starting on Sat02/15/23 at 2215, Until 02/16/23 at 1814, Routine [facility] morpHINE (2 mg/mL) injection 2 mg 02-16 03:07: 02 02-17 01:08 :14 No 2mg 2 mg, Slow IV Push, Q4HPRN, Starting on Sat02/15/23 at 2207, Until 02/16/23 at 2008, Routine, Pain (scale 7-10) [facility] traMADoL (ULTRAM) tablet 50 mg 02-16 03:06: 59 02-18 03:05 :59 No 50mg 50 mg, Oral, Q8HPRN, Starting on Sat02/15/23 at 2206, Until 02/17/23 at 2205, Routine, Pain (scale 4-6) [facility] acetaminoph en (TYLENOL) tablet 1,000 mg 02-16 03:06: 50 Yes 1000mg 1,000 mg, Oral, Q6HPRN, Starting on Sat02/15/23 at 2206, Until Discontinu ed, Routine, Pain (scale 1-3), Temp > 38 C [facility] ALPRAZolam (XANAX) 1 mg tablet 02-16 01:09: 19 02-15 00:00 :00 No 1mg Take 1 tablet by mouth in the morning and 1 tablet in the evening. [facility] iopamidol (ISOVUE 370-500 mL) injection 80 mL 02-16 00:30: 00 02-16 00:30 :00 No [id number] 80mL 80 mL, Intravenou s, ONCE, 1 dose, On Sat02/15/23 at 1930, Routine [facility] lactated ringers IV infusion 1,000 mL 02-16 00:00: 00 02-16 03:07 :30 No [id number] 1000mL at 500 mL/hr, 1,000 mL, IV Infusion, CONTINUOUS , Starting on Sat02/15/23 at 1900, Until Sat02/15/23 at 2207, [facility] FENTanyl PF (SUBLIMAZE (PF)) injection 75 mcg 02-15 23:45: 00 02-15 23:13 :00 No [id number] 75ug 75 mcg, Slow IV Push, ONCE, 1 dose, On Sat02/15/23 at 1845, Routine [facility] dicyclomine (BENTYL) injection 20 mg 02-15 22:15: 00 02-15 21:46 :00 No [id number] 20mg 20 mg, Intramuscu lar, ONCE NOW, 1 dose, On Sat02/15/23 at 1715, Routine [facility] LORazepam (ATIVAN) injection 1 mg 02-15 21:45: 00 02-15 21:46 :00 No [id number] 1mg 1 mg, Slow IV Push, ONCE, 1 dose, On Sat02/15/23 at 1645, STAT [facility] ondansetron (ZOFRAN (PF)) injection 4 mg 02-15 21:45: 00 02-15 21:46 :00 No [id number] 4mg 4 mg, Slow IV Push, ONCE, 1 dose, On Sat02/15/23 at 1645, [facility] HYDROcodone -acetaminop hen (NORCO) 10-325 mg tablet 1 tablet 02-15 20:15: 00 02-15 19:52 :00 No [id number] 1{tbl} 1 tablet, Oral, ONCE, 1 dose, [...] 02-15 19:30: 00 02-15 19:52 :00 No [id number] 20mg 20 mg, Oral, ONCE, 1 dose, On Sat02/15/23 at 1430, [facility] ibuprofen (IBU) tablet 800 mg 02-15 19:30: 00 02-15 19:52 :00 No [id number] 800mg 800 mg, Oral, ONCE, 1 dose, On Sat02/15/23 at 1430, [facility] losartan 50 mg tablet 02-15 13:44: 36 02-15 00:00 :00 No 50mg Take 1 tablet by mouth in the morning. [facility] [place]-3-DHA -EPA-Fish Oil (FISH OIL) 1,000 mg (120 [...] 243 mg, Oral, DAILY, First dose on [place] 12/14/21 at 0900, Until Discontinu ed, Routine [facility] ketorolac (TORADOL) injection 15 mg 12-14 08:15: 00 12-14 07:11 :00 No 15mg 15 mg, Slow IV Push, ONCE, 1 dose, On [place] 12/14/21 at 0315, [facility] morpHINE (4 mg/mL) injection 4 mg 12-14 05:45: 00 12-14 04:52 :00 No 4mg 4 mg, Slow IV Push, ONCE, 1 dose, On [place] 12/14/21 at 0045, STAT [facility] cefTRIAXone [...] 1 dose, On [place] 12/14/21 at 0045, [facility] ondansetron (ZOFRAN (PF)) injection 4 mg 12-14 04:45: 00 12-14 03:50 :00 No 4mg 4 mg, Slow IV Push, ONCE, 1 dose, On Sat12/13/21 at 2345, [facility] FENTanyl PF (SUBLIMAZE (PF)) [...] 12-14 00:00: 00 02-15 00:00 :00 No [id number] 500mg Take 1 tablet by mouth 2 (two) times daily with meals. [facility] cefpodoxime 200 mg tablet 12-14 00:00: 00 12-22 04:59 :00 No [id number] 200mg Take 1 tablet by mouth 2 [...] ONCE, 1 dose, On 11/11/21 at 2230, [facility] aspirin E.C. (ECOTRIN) tablet 325 mg 11-12 03:30: 00 11-12 02:25 :00 No 325mg 325 mg, Oral, ONCE, 1 dose, On 11/11/21 at 2230, [facility] morpHINE (4 mg/mL) injection 4 mg 11-12 02:30: 00 11-12 01:40 :00 No 4mg 4 mg, Slow IV Push, ONCE, 1 dose, On 11/11/21 at 2130, STAT [facility] ondansetron (ZOFRAN (PF)) injection 4 mg 11-12 02:30: 00 11-12 01:40 :00 No 4mg 4 mg, Slow IV Push, ONCE, 1 dose, On 11/11/21 at 2130, [facility] NaCl 0.9% (NS) bolus infusion 1,000 mL 11-12 02:30: 00 11-12 02:30 :00 No 1000mL at 999 mL/hr, 1,000 mL, IV Infusion, ONCE, 1 dose, On 11/11/21 at 2130, [facility] hydrOXYzine 50 mg tablet 11-11 00:00: 00 04-08 00:00 :00 No [id number] 50mg Take 1 tablet by mouth every 8 (eight) hours as needed for Anxiety. [facility] ketorolac (TORADOL) injection 30 mg 08 05:45: 00 09-12 04:54 :00 No 30mg 30 mg, Slow IV Push, ONCE, 1 dose, On 09/11/21 at 2345, Routine
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 [facility] cefdinir 300 mg capsule 3-07 00:00: 00 09-19 04:59 :00 No [id number] 300mg Take 1 capsule by mouth 2 [...] 500 mg tablet 08-15 00:00: 00 Yes [id number] 500mg Take 1 tablet by mouth every [...] 08-15 00:00: 00 02-15 00:00 :00 No [id number] 100mg Take 1 capsule by mouth 2 (two) times daily. [facility] morpHINE injection 4 mg 2020-07 08:30: 00 05-28 07:50 :00 No 4mg 4 mg, Slow IV Push, ONCE, 1 dose, On 05/28/21 at 0230, [facility] maalox:diph enhydrAMINE :lidocaine 2 % viscous 1:1:1 ([facility]) oral suspension 15 mL 2020-07 [...] 2020-07 00:00: 00 06-13 05:59 :00 No [id number] 20mg Take 1 tablet by mouth 2 (two) times daily for 15 days. [facility] escitalopra m oxalate (LEXAPRO) tablet 10 mg 2020-07 02:00: 00 Yes 10mg 10 mg, Oral, QHS, First dose on 04/08/21 at 2100, Until Discontinu ed, Routine [facility] aspirin 81 mg chewable tablet 2020-07 00:00: 00 05-10 04:59 :00 No [id number] 81mg Take 1 tablet by mouth daily [...] 3 (three) times daily. [facility] [place]-3-DHA -EPA-Fish Oil (FISH OIL) 1,000 mg (120 [...] at 0930, Until Discontinu ed, Routine [facility] losartan (COZAAR) tablet 50 mg 2020-07 14:00: 00 Yes 50mg 50 mg, Oral, DAILY, First dose on 04/08/21 at 0900, Until Discontinu ed, Routine [facility] buPROPion XL (WELLBUTRIN XL) tablet 150 mg 2020-07 14:00: 00 Yes 150mg 150 mg, Oral, DAILY, First dose on 04/08/21 at 0900, Until Discontinu ed [facility] aspirin chewable tablet 81 mg 2020-07 14:00: 00 Yes 81mg 81 mg, Oral, DAILY, First dose on 04/08/21 at 0900, Until Discontinu ed, Routine [facility] enoxaparin (LOVENOX) injection 40 mg 2020-07 14:00: 00 Yes 40mg 40 mg, Subcutaneo us, DAILY, First dose on 04/08/21 at 0900, Until Discontinu ed, Routine [facility] OLANZapine (ZyPREXA) tablet 2.5 mg 2020-07 13:00: 00 Yes 2.5mg 2.5 mg, Oral, BID, First dose on 04/08/21 at 0800, Until Discontinu ed, Routine [facility] methocarbam oL (ROBAXIN) tablet 750 mg 2020-07 13:00: 00 Yes 750mg 750 mg, Oral, TID, First dose on 04/08/21 at 0800, Until Discontinu ed, Routine [facility] LORazepam (ATIVAN) injection 0.5 mg 2020-07 0 04:07: 43 Yes .5mg 0.5 mg, Slow IV Push, PRN, 2 doses, Starting on Sat04/07/21 at 2307, Until Discontinu ed, Routine, Anxiety [facility] hydrOXYzine (ATARAX) tablet 50 mg 2020-07 0 02:51: 23 Yes 50mg 50 mg, Oral, Q4HPRN, Starting on Sat04/07/21 at 2151, Until Discontinu ed, Itching [facility] LORazepam (ATIVAN) tablet 0.5 mg 2020-07 0 02:05: 29 Yes .5mg 0.5 mg, Oral, PRN, 2 doses, Starting on Sat04/07/21 at 2105, Until Discontinu ed, Routine, Anxiety [facility] morpHINE injection 4 mg 2020-07 0 00:00: 00 04-07 22:58 :00 No 4mg 4 mg, Slow IV Push, ONCE, 1 dose, On Sat04/07/21 at 1900, STAT [facility] ondansetron (ZOFRAN (PF)) injection 4 mg 2020-07 0 00:00: 00 04-07 22:56 :00 No 4mg 4 mg, Slow IV Push, ONCE, 1 dose, On Sat04/07/21 at 1900, [facility] morpHINE injection 4 mg 2020-07 0 23:58: 03 04-08 23:57 :03 No 4mg 4 mg, Slow IV Push, Q4HPRN, Starting on Sat04/07/21 at 1858, Until 04/08/21 at 1857, Routine, Pain (scale 7-10) [facility] HYDROcodone -acetaminop hen (NORCO 5) 5-325 mg tablet 1 tablet 2020-07 0 23:58: 00 04-09 23:57 :00 No 1{tbl} [...] dose, On Sat04/07/21 at 1800, STAT [facility] nitroglycer in (NITROSTAT) sublingual tablet [...] HEENT
D uration of therapy: 72 hours [facility] cefTRIAXone (ROCEPHIN) 1,000 mg [...] 01-12 00:00: 00 04-07 00:00 :00 No [id number] 500mg Take 1 capsule by mouth 3 [...] Push, ONCE, 1 dose, 12/10/20 at 1845, [facility] NaCl 0.9% (NS) bolus infusion 2,000 mL 12-10 22:45: 00 12-11 01:29 :00 No 2000mL at 999 mL/hr, 2,000 mL, IV Infusion, ONCE, 1 dose, 12/10/20 at 1745, [facility] proMETHazin e 25 mg tablet 12-10 00:00: 00 04-07 00:00 :00 No [id number] 12.5mg Take 0.5 tablets by mouth every [...] Oral, ONCE, 1 dose, 12/04/20 at 1645, [facility] ondansetron (ZOFRAN (PF)) injection 4 mg 12-04 21:15: 00 12-04 20:22 :00 No 4mg 4 mg, Slow IV Push, ONCE, 1 dose, 12/04/20 at 1615, [facility] morpHINE injection 4 mg 12-04 21:15: 00 12-04 20:21 :00 No 4mg 4 mg, Slow IV Push, ONCE, 1 dose, 12/04/20 at 1615, STAT [facility] ALPRAZolam (XANAX) 2 mg tablet 11-04 04:24: 19 11-03 00:00 :00 No 2mg Take 2 mg by mouth at bedtime. [facility] LORazepam (ATIVAN) injection 1 mg 11-04 04:00: 00 11-04 02:57 :00 No 1mg 1 mg, Slow IV Push, ONCE, 1 dose, [facility] 11/03/20 at 2300, STAT [facility] LORazepam (ATIVAN) tablet 1 mg 11-04 04:00: 00 11-04 02:57 :00 No 1mg 1 mg, Oral, ONCE, 1 dose, [place] 11/03/20 at 2300, [facility] clonazePAM 0.5 mg tablet 11-01 00:00: 00 04-07 00:00 :00 No .5mg Take 0.5 mg by mouth. [facility] SERTraline 100 mg tablet 11-01 00:00: 00 04-07 00:00 :00 No 100mg Take 100 mg by mouth. [facility] busPIRone 10 mg tablet 10-18 00:00: 00 04-07 00:00 :00 No 10mg Take 10 mg by mouth. [facility] Ciprofloxac in/Dexameth asone (Ciprodex 0.3%-0.1% Otic*) 1 Ea SUSP Ciprofloxac in/Dexameth asone (Ciprodex 0.3%-0.1% Otic*) 1 Ea SUSP 09-19 13:53: 00 09-30 00:00 :00 No 3 [facility] ([facility]U) tablet 800 mg 09-17 16:55: 00 09-17 16:57 :00 No 800mg 800 mg, Oral, ONCE, 1 dose, 09/17/20 at 1100, [facility] benzonatate 100 mg capsule 09-17 00:00: 00 04-07 00:00 :00 No [id number] 100mg Take 1 capsule by mouth 3 (three) times daily as needed for Cough. [facility] amoxicillin 500 mg capsule 3-13 00:00: 00 09-28 04:59 :00 No [id number] 500mg Take 1 capsule by mouth 3 [...] 800 mg tablet 09-07 00:00: 00 Yes [id number] 800mg Take 1 tablet by mouth every [...] 08/28/20 at 0400, Routine [facility] iohexol (OMNIPAQUE 350 BULK-100 mL) injection 120 mL 08-28 09:30: 00 08-28 09:11 :00 No 120mL 120 mL, Intravenou s, ONCE, 1 dose, 08/28/20 at 0330, Routine [facility] dicyclomine 20 mg tablet 08-28 00:00: 00 04-07 00:00 :00 No [id number] 20mg Take 1 tablet by mouth every 6 (six) hours as needed for Abdominal pain. [facility] ondansetron (ZOFRAN) 4 mg tablet 08-28 00:00: 00 09-17 00:00 :00 No [id number] 4mg Take 1 tablet by mouth every [...] 08-14 00:00: 00 04-07 00:00 :00 No [id number] 100mg Take 5 mL by mouth every 4 (four) hours. [facility] ondansetron 4 mg disintegrat ing tablet 08-14 00:00: 00 09-17 00:00 :00 No [id number] 4mg Take 1 tablet by mouth every 8 (eight) hours as needed for Nausea and Vomiting (N/V). [facility] ibuprofen 600 mg tablet 08-14 00:00: 00 09-17 00:00 :00 No [id number] 600mg Take 1 tablet by mouth every 6 (six) hours as needed for Pain (scale 4-6). [facility] amoxicillin -clavulanat e 875-125 mg per tablet 08-14 00:00: 00 08-25 05:59 :00 No [id number] 1{tbl} Take 1 tablet by mouth 2 [...] NaCl 0.9% (NS) bolus infusion 1,000 mL 2-04 01:45: 00 08-11 03:45 :00 No 1000mL at 999 mL/hr, 1,000 mL, IV Infusion, ONCE, 1 dose, Sat08/10/20 at 1945, STAT [facility] ketorolac (TORADOL) injection 30 mg 2-04 01:45: 00 08-11 02:31 :00 No 30mg 30 mg, Slow IV Push, ONCE, 1 dose, Sat08/10/20 at 1945, [facility]
Fa culty member approving Restricted medication : [facility] T[facility] traMADoL (ULTRAM) 50 mg tablet 2- 00:00: 00 09-17 00:00 :00 No [id number] 50mg Take 1 tablet by mouth every 6 (six) hours as needed for Pain (scale 7-10). Indication s: acute pain [facility] ibuprofen 800 mg tablet 08-07 00:00: 00 09-17 00:00 :00 No [id number] 800mg Take 1 tablet by mouth every 8 (eight) hours. [facility] amoxicillin 500 mg capsule 08-07 00:00: 00 09-17 00:00 :00 No [id number] 500mg Take 1 capsule by mouth 3 [...] member approving Restricted medication : ABDIAS ROBERTSON [facility] albuterol 90 mcg/actuati on inhaler 2019-07 00:00: 04-07 00:00 :00 No [id number] 2{puff} Inhale 2 Puffs every 4 (four) hours as needed for Wheezing or Shortness of Breath. [facility] hydrOXYzine 25 mg tablet 2019-07 00:00: 00 09-17 00:00 :00 No [id number] 25mg Take 1 tablet by mouth every 6 (six) hours as needed for Anxiety. [facility] naproxen sodium (ANAPROX DS) 550 mg tablet 2019-07 00:00: 00 04-07 00:00 :00 No [id number] 550mg Take 1 tablet by mouth 2 (two) times daily with meals. [facility] methylPREDN ISolone (MEDROL, BEBETO,) 4 mg tablets 2019-07 00:00: 00 09-17 00:00 :00 No [id number] Take by mouth SEE-INSTRU CTIONS. follow package directions [facility] methocarbam oL 500 mg tablet 2019-07 00:00: 00 07-04 05:59 :00 No [id number] 500mg Take 1 tablet by mouth 3 [...] ONCE, 1 dose, 06/12/20 at 1845, [facility] NaCl 0.9% (NS) bolus infusion 1,000 mL 2019-07 23:45: 00 06-13 03:54 :00 No 1000mL at 999 mL/hr, 1,000 mL, IV Infusion, ONCE, 1 dose, 06/12/20 at 1745, [facility] dicyclomine 20 mg tablet 2019-07 00:00: 00 04-07 00:00 :00 No [id number] 20mg Take 1 tablet by mouth 4 (four) times daily as needed for Abdominal pain. [facility] proMETHazin e 25 mg tablet 2019-07 00:00: 00 09-17 00:00 :00 No [id number] 25mg Take 1 tablet by mouth every 6 (six) hours as needed for Nausea and Vomiting (N/V). [facility] famotidine 20 mg tablet 2019-07 00:00: 00 06-27 05:59 :00 No [id number] 20mg Take 1 tablet by mouth at [...] 1,000 mL, IV Infusion, ONCE, 1 dose, [facility] 05/16/20 at 1745, [facility] proMETHazin e (PHENERGAN) 25 mg suppository 2019-07 00:00: 00 Yes [id number] 25mg Insert 1 Suppositor y into rectum every 4 (four) hours as needed for Nausea and Vomiting (N/V). [facility] ondansetron (ZOFRAN (PF)) injection 4 mg 2019-07 07:30: 00 05-15 06:26 :00 No 4mg 4 mg, Slow IV Push, ONCE, 1 dose, [place] 05/15/20 at 0130, [facility] iohexol (OMNIPAQUE 350 BULK-100 mL) injection 120 mL 2019-07 07:00: 00 05-15 06:52 :00 No 120mL 120 mL, Intravenou s, ONCE, 1 dose, [place] 05/15/20 at 0100, Routine [facility] ondansetron (ZOFRAN (PF)) injection 4 mg 2019-07 06:30: 00 05-15 05:52 :00 No 4mg 4 mg, Slow IV Push, ONCE, 1 dose, [place] 05/15/20 at 0030, [facility] ALPRAZolam (XANAX) 2 mg tablet 2019-07 05:30: 59 Yes 2mg Take 2 mg by mouth at bedtime. [facility] zolpidem 5 mg tablet 6-15 00:00: 00 04-07 00:00 :00 No 5mg Take 5 mg by mouth. [facility] Immunizations Ordered Immunization Name Filled Immunization Name Date Status Comments Source Covid-19 Vaccine Moderna (Spikevax), Mrna-lnp, Zackery Protein, Pf Unknown Completed [facility]ellee Davies Covid-19 Vaccine Moderna (Spikevax), Mrna-lnp, Zackery Protein, Pf Unknown Completed Kellee Davies Covid-19 Vaccine Moderna (Spikevax), Mrna-lnp, Zackery Protein, Pf Unknown Completed Kellee Seybold - External Covid-19 Vaccine Moderna (Spikevax), Mrna-lnp, Zackery Protein, Pf Unknown Completed [facility] - External Covid-19 Vaccine Moderna (Spikevax), Mrna-lnp, Zackery Protein, Pf Unknown Completed [facility] - External Covid-19 Vaccine Moderna (Spikevax), Mrna-lnp, Zackery Protein, Pf Unknown Completed [facility] - External Vital Signs Vital Name Observation Time Observation Value Comments S ource Heart rate 2024-06-15 06:22:00 87 /min [facility] Body temperature 2024-06-15 06:22:00 37.11 Latanya [facility] Oxygen saturation in Arterial blood by Pulse oximetry 2024-06-15 06:22:00 96 /min [facility] Systolic blood pressure 2024-06-15 06:00:00 137 mm[Hg] [facility] Diastolic blood pressure 2024-06-15 06:00:00 85 mm[Hg] [facility] Respiratory rate 2024-06-15 06:00:00 15 /min [facility] Body height 2024-06-15 03:23:00 157.5 cm [facility] Body weight 2024-06-15 03:23:00 109.997 kg [facility] BMI 2024-06-15 03:23:00 44.35 kg/m2 [facility] Body temperature 2024-06-07 08:35:48 36.89 Latanya [facility] Systolic blood pressure 2024-06-07 08:00:00 129 mm[Hg] [facility] Diastolic blood pressure 2024-06-07 08:00:00 108 mm[Hg] [facility] Heart rate 2024-06-07 08:00:00 69 /min [facility] Respiratory rate 2024-06-07 08:00:00 24 /min [facility] Oxygen saturation in Arterial blood by Pulse oximetry 2024-06-07 08:00:00 97 /min [facility] Body height 2024-06-07 04:02:00 157.5 cm [facility] Body weight 2024-06-07 04:02:00 105.688 kg [facility] BMI 2024-06-07 04:02:00 42.62 kg/m2 [facility] Systolic blood pressure 2024-05-19 19:32:00 130 mm[Hg] [facility] Diastolic blood pressure 2024-05-19 19:32:00 74 mm[Hg] [facility] Heart rate 2024-05-19 19:32:00 84 /min [facility] Respiratory rate 2024-05-19 19:32:00 18 /min [facility] Oxygen saturation in Arterial blood by Pulse oximetry 2024-05-19 19:32:00 99 /min [facility] Body temperature 2024-05-19 17:44:00 36.83 Latanya [facility] Body height 2024-05-19 17:44:00 157.5 cm [facility] Body weight 2024-05-19 17:44:00 108.863 kg [facility] BMI 2024-05-19 17:44:00 43.90 kg/m2 [facility] Systolic blood pressure 2024-05-18 16:21:00 126 mm[Hg] Kellee Seybold - External Diastolic blood pressure 2024-05-18 16:21:00 78 mm[Hg] Kellee Ariasybold - External Heart rate 2024-05-18 16:21:00 95 /min Kellee Floresold - External Body temperature 2024-05-18 16:21:00 35.94 Latanya Kellee Buckley - External Respiratory rate 2024-05-18 16:21:00 15 /min Kellee Floresold - External Body height 2024-05-18 16:21:00 157.5 cm Kellee Buckley - External Body weight 2024-05-18 16:21:00 110.678 kg Kellee Buckley - External BMI 2024-05-18 16:21:00 44.63 kg/m2 Kellee Ariasybold - External Heart rate 2024-05-18 04:14:00 111 /min [facility] Body temperature 2024-05-18 04:14:00 37 Latanya [facility] Respiratory rate 2024-05-18 04:14:00 27 /min [facility] Oxygen saturation in Arterial blood by Pulse oximetry 2024-05-18 04:14:00 94 /min [facility] Systolic blood pressure 2024-05-18 04:00:00 141 mm[Hg] [facility] Diastolic blood pressure 2024-05-18 04:00:00 122 mm[Hg] [facility] Body height 2024-05-18 00:33:00 157.5 cm [facility] Body weight 2024-05-18 00:33:00 107.502 kg [facility] BMI 2024-05-18 00:33:00 43.35 kg/m2 [facility] Heart rate 2024-05-08 02:05:00 91 /min [facility] Respiratory rate 2024-05-08 02:05:00 22 /min [facility] Oxygen saturation in Arterial blood by Pulse oximetry 2024-05-08 02:05:00 95 /min [facility] Systolic blood pressure 2024-05-08 02:00:00 140 mm[Hg] [facility] Diastolic blood pressure 2024-05-08 02:00:00 86 mm[Hg] [facility] Body temperature 2024-05-07 23:46:00 36.78 Latanya [facility] Body height 2024-05-07 23:46:00 157.5 cm [facility] Body weight 2024-05-07 23:46:00 107.729 kg [facility] BMI 2024-05-07 23:46:00 43.44 kg/m2 [facility] Height 2024-04-10 16:28:00 157.863882 cm [facility] Weight 2024-04-10 16:28:00 104.685946 kg [facility] BMI (Body Mass Index) 2024-04-10 16:28:00 42.1 kg/m2 [facility] Systolic blood pressure 2024-04-09 01:30:00 134 mm[Hg] [facility] Diastolic blood pressure 2024-04-09 01:30:00 64 mm[Hg] [facility] Heart rate 2024-04-09 01:30:00 102 /min [facility] Body temperature 2024-04-09 01:30:00 36.61 Latanya [facility] Respiratory rate 2024-04-09 01:30:00 17 /min [facility] Oxygen saturation in Arterial blood by Pulse oximetry 2024-04-09 01:30:00 96 /min [facility] Body height 2024-04-08 22:31:00 157.5 cm [facility] Body weight 2024-04-08 22:31:00 104.327 kg [facility] BMI 2024-04-08 22:31:00 42.07 kg/m2 [facility] Body temperature 2023-12-13 14:10:00 36.72 Latanya [...] External BMI 2023-12-03 15:44:00 42.25 kg/m2 Kellee Floresold - External Systolic blood pressure 2023-10-29 18:12:00 [...] Systolic blood pressure 2021-12-14 07:22:00 121 mm[Hg] [facility] Diastolic blood pressure 2021-12-14 07:22:00 86 [...] blood pressure 2020-08-14 19:40:00 135 mm[Hg] [facility] Diastolic blood pressure 2020-08-14 19:40:00 100 mm[Hg] [...] blood pressure 2020-08-14 19:40:00 135 mm[Hg] [facility] Diastolic blood pressure 2020-08-14 19:40:00 100 mm[Hg] [...] blood pressure 2020-08-11 04:00:00 106 mm[Hg] [facility] Diastolic blood pressure 2020-08-11 04:00:00 92 mm[Hg] [facility] Heart rate 2020-08-11 04:00:00 90 /min [facility] Respiratory rate 2020-08-11 04:00:00 16 /min [facility] Oxygen saturation in Arterial blood by Pulse oximetry 2020-08-11 04:00:00 99 /min [facility] Body temperature 2020-08-11 03:12:56 37.72 Laatnya [facility] Body height 2020-08-11 00:19:00 157.5 cm [facility] Body weight 2020-08-11 00:19:00 99.791 kg [facility] BMI 2020-08-11 00:19:00 40.24 kg/m2 [facility] Systolic blood pressure 2020-08-11 04:00:00 106 mm[Hg] [facility] Diastolic blood pressure 2020-08-11 04:00:00 92 mm[Hg] [...] Systolic blood pressure 2020-06-13 03:40:00 122 mm[Hg] [facility] Diastolic blood pressure 2020-06-13 03:40:00 78 mm[Hg] [...] Clinician Source CT ABDOMEN PELVIS W CONTRAST 2024-06-15 05:33:59 Sandy Garcia [facility] URINALYSIS 2024-06-15 04:18:00 Sandy Garcia [facility] LIPASE 2024-06-15 04:14:00 Sandy Garcia [facility] TEST, SERUM 2024-06-15 04:14:00 Laney Garcia [facility] TROPONIN I 2024-06-15 04:14:00 Sandy Garcia [facility] COMP. METABOLIC PANEL ([id number]) 2024-06-15 04:14:00 Sandy Garcia [facility] CBC WITH DIFF 2024-06-15 04:14:00 Sandy Garcia [facility] TROPONIN I 2024-06-07 07:19:00 Olivia Garcia [facility] XR CHEST 1 VW 2024-06-07 05:38:37 Olivia Garcia [facility] POCT TEST 2024-06-07 05:19:00 Olivia Garcia [facility] URINE DRUG (IMMUNOASSAY) - COMPREHENSIVE DRUG SCREEN 2024-06-07 05:18:00 Olivia Garcia [facility] TROPONIN I 2024-06-07 04:10:00 Olivia Garcia [facility] COMP. METABOLIC PANEL ([id number]) 2024-06-07 04:10:00 Olivia Garcia [facility] CBC WITH DIFF 2024-06-07 04:10:00 Olivia Garcia [facility] CT HEAD WO CONTRAST 2024-05-19 18:22:43 Annalise Wright [facility] XR ELBOW <3 VW RIGHT 2024-05-18 02:32:12 Alesha Barrera [facility] XR FOREARM 2 VW RIGHT 2024-05-18 02:32:12 Alesha Moralez [facility] XR HAND 3+ VW RIGHT 2024-05-18 02:32:12 Alesha Casanova [facility] CT CERVICAL SPINE WO CONTRAST 2024-05-18 02:11:45 Alesha Roy [facility] CT MAXILLOFACIAL/MANDIBLE WO CONTRAST 2024-05-18 02:11:45 Alesha Roy [facility] POCT TEST 2024-05-08 02:00:00 Saleem Edward [facility] LIPASE 2024-05-08 00:31:00 Saleem Edward [facility] MAGNESIUM 2024-05-08 00:31:00 Saleem Edward [facility] TROPONIN I 2024-05-08 00:31:[address] [facility] COMP. METABOLIC PANEL ([id number]) 2024-05-08 00:31:00 Saleem Edward [facility] CBC WITH DIFF 2024-05-08 00:31:00 Saleem Edward [facility] URINALYSIS 2024-05-08 00:31:00 Saleem Edward [facility] CT ABDOMEN PELVIS WO CONTRAST 2024-04-08 23:45:15 Leigh Rojo [facility] POCT TEST 2024-04-08 23:01:00 Judy Rojo [facility] LIPASE 2024-04-08 22:47:00 Florentino [facility] COMP. METABOLIC PANEL ([id number]) 2024-04-08 22:47:00 Leigh Rojo [facility] CBC WITH DIFF 2024-04-08 22:47:00 Sophie Rojoherine [facility] URINALYSIS 2024-04-08 22:47:00 Florentino [facility] CT ABDOMEN PELVIS W CONTRAST 2023-10-11 04:08:24 Olivia Garcia [facility] POCT TEST 2023-10-11 03:40:00 Olivia Garcia [facility] LIPASE 2023-10-11 03:25:00 Olivia Garcia [facility] COMP. METABOLIC PANEL ([id number]) 2023-10-11 03:25:00 Olivia Garcia [facility] CBC WITH DIFF 2023-10-11 03:25:00 Olivia Garcia [facility] URINALYSIS 2023-10-11 03:25:00 Olivia Garcia [facility] XR KUB 2023-07-02 03:34:[address] [facility] TEST 2023-07-02 02:30:00 Alberta Richards [facility] LIPASE 2023-07-02 02:05:[address] COMP. METABOLIC PANEL ([id number]) 2023-07-02 02:05:00 Roberto Richards [facility] CBC WITH DIFF 2023-07-02 02:05:00 Roberto Richards [facility] URINALYSIS 2023-07-02 02:05:00 Roberto Richards [facility] URINE DRUG (IMMUNOASSAY) - COMPREHENSIVE DRUG SCREEN W/O REFLEX 2023-07-02 02:05:00 Roberto Richards [facility] CONSENT/REFUSAL FOR DIAGNOSIS AND TREATMENT 2023-07-02 01:43:05 Doctor Unassigned, [place] [facility] LIPASE 2023-05-09 22:47:00 Narayan Narvaez [facility] acute hospital COMP. METABOLIC PANEL ([id number]) 2023-05-09 22:47:00 Narayan Narvaez [facility] CBC WITH DIFF 2023-05-09 22:47:00 Narayan Narvaez [facility] CONSENT/REFUSAL FOR DIAGNOSIS AND TREATMENT 2023-05-09 22:32:48 Doctor Unassigned, [place] [facility] CT ABDOMEN PELVIS W CONTRAST 2023-04-30 23:47:56 Narayan Narvaez [facility] COMP. METABOLIC PANEL ([id number]) 2023-04-30 23:08:00 Narayan Narvaez [facility] CBC WITH DIFF 2023-04-30 23:08:00 Narayan Narvaez [facility] POCT TEST 2023-04-30 22:59:00 Jaquan Narvaez [facility] URINALYSIS 2023-04-30 22:57:00 Narayan Narvaez [facility] acute hospital CONSENT/REFUSAL FOR DIAGNOSIS AND TREATMENT 2023-04-30 22:14:38 Doctor Unassigned, [place] [facility] XR ABDOMEN ACUTE SERIES 2023-04-17 02:13:44 Do minal Richards [facility] POCT TEST 2023-04-17 02:11:00 Alberta Richards [facility] LIPASE 2023-04-17 02:04:00 Roberto Richards [facility] TROPONIN I 2023-04-17 02:04:00 Roberto Richards [facility] COMP. METABOLIC PANEL ([id number]) 2023-04-17 02:04:00 Roberto Richards [facility] CBC WITH DIFF 2023-04-17 02:04:00 Roberto Richards [facility] PROTHROMBIN TIME / INR 2023-04-17 02:04:00 Jalen Richards [facility] ACTIVATED PARTIAL THRMPLAS MARCIO 2023-04-17 02:04:00 Roberto Richards [facility] URINALYSIS 2023-04-17 02:04:00 Roberto Richards [facility] N-TERMINAL PRO-BNP 2023-04-17 02:04:00 Roberto Richards [facility] URINE DRUG (IMMUNOASSAY) - COMPREHENSIVE DRUG SCREEN W/O REFLEX 2023-04-17 02:04:00 Roberto Richards [facility] CONSENT/REFUSAL FOR DIAGNOSIS AND TREATMENT 2023-04-17 01:22:36 Doctor Unassigned, [place] [facility] URINALYSIS 2023-04-09 01:02:00 Saleem Edwarde [facility] acute hospital LIPASE 2023-04-08 23:15:00 Saleem Edward [facility] MAGNESIUM 2023-04-08 23:15:00 WagnerSaleem Unive [facility] acute [facility] TROPONIN I 2023-04-08 23:15:00 Saleem Edward [facility] COMP. METABOLIC PANEL ([id number]) 2023-04-08 23:15:00 Saleem Edward [facility] CBC WITH DIFF 2023-04-08 23:15:00 WagnerSaleem medrano Univ [facility] CONSENT/REFUSAL FOR DIAGNOSIS AND TREATMENT 2023-04-08 21:57:42 Doctor Unassigned, [place] [facility] CT ABDOMEN PELVIS W CONTRAST 2023-03-10 03:38:58 Roberto Richards [facility] POCT TEST 2023-03-10 02:51:00 Alberta Richards [facility] URINALYSIS 2023-03-10 01:49:00 [facility] 2023-03-10 01:46:00 Roberto Richards [facility] COMP. METABOLIC PANEL ([id number]) 2023-03-10 01:46:00 Roberto Richards [facility] CBC WITH DIFF 2023-03-10 01:46:00 Roberto Ricahrds [facility] CONSENT/REFUSAL FOR DIAGNOSIS AND TREATMENT 2023-03-10 01:36:24 Doctor Unassigned, [place] [facility] CONSENT/REFUSAL FOR DIAGNOSIS AND TREATMENT 2023-03-10 01:14:40 Doctor Unassigned, [place] [facility] CT ABDOMEN PELVIS W CONTRAST 2023-03-02 05:16:35 Olivia Garcia [facility] POCT TEST 2023-03-02 03:26:00 Olivia Garcia [facility] LIPASE 2023-03-02 03:23:00 Olivia Garcia [facility] COMP. METABOLIC PANEL ([id number]) 2023-03-02 03:23:00 Olivia Garcia [facility] CBC WITH DIFF 2023-03-02 03:23:00 Olivia Garcia [facility] URINALYSIS 2023-03-02 03:23:00 Olivia Garcia [facility] CONSENT/REFUSAL FOR DIAGNOSIS AND TREATMENT 2023-03-02 00:22:44 Doctor Unassigned, [place] [facility] CONSENT/REFUSAL FOR DIAGNOSIS AND TREATMENT 2023-02-18 03:44:46 Doctor Unassigned, [place] [facility] LIPASE 2023-02-17 09:28:00 Jesús Montero [facility] HEPATIC FUNCTION PANEL ([id number]) (ALB,T.PRO,BILI T,BU/BC,ALT,AST,ALK PHOS) 2023-02-17 09:28:00 [facility] (NA, K, CL, CO2, GLUCOSE, BUN, CREATININE, CA) 2023-02-17 09:28:00 [facility] 2023-02-17 09:28:00 Jesús Montero [facility] acute hospital LIPASE 2023-02-16 18:24:00 [facility] ([id number]) (ALB,T.PRO,BILI T,BU/BC,ALT,AST,ALK PHOS) 2023-02-16 18:24:00 Kylah [facility] BASIC METABOLIC PANEL (NA, K, CL, CO2, GLUCOSE, BUN, CREATININE, CA) 2023-02-16 18:24:00 Jesús Montero [facility] CBC WITH DIFF 2023-02-16 18:23:00 Kylah [facility] ABDOMEN PELVIS W CONTRAST 2023-02-15 23:29:00 Leeanne Wise [facility] LIPASE 2023-02-15 21:45:00 Leeanne Wise [facility] COMP. METABOLIC PANEL ([id number]) 2023-02-15 21:45:00 Leeanne Wise [facility] CBC WITH DIFF 2023-02-15 21:45:00 Leeanne Wise [facility] D-DIMER 2023-02-15 19:55:00 Leeanne Wise [facility] URINALYSIS 2023-02-15 19:50:00 Leeanne Wise [facility] RAPID INFLUENZA A/B 2023-02-15 19:50:00 Leeanne Wise [facility] COVID-19 (ID NOW RAPID TESTING) 2023-02-15 19:50:00 Leeanne Wise [facility] XR CHEST 1 VW 2023-02-15 19:38:00 Leeanne Wise [facility] ASSIGNMENT OF BENEFITS 2023-02-15 19:26:58 Docto r Unassigned, [place] [facility] HB ECG ROUTINE & RHYTHM STRIP 2023-02-15 19:07:40 Leeanne Wise [facility] NOTICE OF PRIVACY PRACTICES 2023-02-15 18:24:07 Doctor Unassigned, [place] [facility] CONSENT/REFUSAL FOR DIAGNOSIS AND TREATMENT 2023-02-15 18:23:04 Doctor Unassigned, [place] [facility] TROPONIN I 2022-01-10 00:32:[address] TROPONIN I 2022-01-09 22:17:[address] [facility] BASIC METABOLIC PANEL (NA, K, CL, CO2, GLUCOSE, BUN, CREATININE, CA) 2022-01-09 22:17:00 Melida Longoria [facility] CBC WITH DIFF 2022-01-09 22:17:00 Melida Longoria [facility] N-TERMINAL PRO-BNP 2022-01-09 22:17:00 Melida Longoria [facility] XR CHEST 1 VW 2022-01-09 22:11:00 Melida Longoria [facility] hospital CONSENT/REFUSAL FOR DIAGNOSIS AND TREATMENT 2022-01-09 21:34:15 Doctor Unassigned, [place] [facility] TROPONIN I 2021-12-14 05:39:00 Wil Mcqueen [facility] XR CHEST 1 VW 2021-12-14 04:39:00 Wil Mcqueen [facility] POCT TEST 2021-12-14 04:20:00 Wil Mcqueen [facility] URINALYSIS 2021-12-14 03:57:00 Wil Mcqueen [facility] acute hospital LIPASE 2021-12-14 03:43:00 Wil Mcqueen [facility] TROPONIN I 2021-12-14 03:43:00 Wil Mcqueen [facility] FREE T4 2021-12-14 03:43:00 Wil Mcqueen [facility] THYROID STIMULATING HORMONE 2021-12-14 03:43:00 Wil Mcqueen [facility] COMP. METABOLIC PANEL ([id number]) 2021-12-14 03:43:00 Wil Mcqueen [facility] CBC WITH DIFF 2021-12-14 03:43:00 [facility] 2021-12-14 03:43:[address] [facility] CONSENT/REFUSAL FOR DIAGNOSIS AND TREATMENT 2021-12-14 02:58:21 Doctor Unassigned, [place] [facility] TROPONIN I 2021-11-12 03:04:00 Dee Wang [facility] POCT TEST 2021-11-12 02:56:00 Tra Wang [facility] URINE DRUG (IMMUNOASSAY) - COMPREHENSIVE DRUG SCREEN 2021-11-12 02:30:00 Dee Wang [facility] URINALYSIS 2021-11-12 02:30:00 Dee Wang [facility] XR CHEST 2 VW 2021-11-12 01:45:03 Dee Wang [facility] LIPASE 2021-11-12 01:34:00 Dee Wang [facility] TROPONIN I 2021-11-12 01:34:00 Dee Wang [facility] COMP. METABOLIC PANEL ([id number]) 2021-11-12 01:34:00 Dee Wang [facility] CBC WITH DIFF 2021-11-12 01:34:00 Dee Wang [facility] N-TERMINAL PRO-BNP 2021-11-12 01:34:00 Mckinley Wang [facility] CONSENT/REFUSAL FOR DIAGNOSIS AND TREATMENT 2021-11-12 00:36:34 Doctor Unassigned, [place] [facility] CT ABDOMEN PELVIS W CONTRAST 2021-09-12 02:49:43 Dee Wang [facility] COVID-19 (ID NOW RAPID TESTING) 2021-09-12 02:23:00 Dee Wang [facility] POCT TEST 2021-09-12 02:21:00 Tra Wang [facility] POCT TEST 2021-09-12 01:45:00 Olivia Garcia [facility] URINALYSIS 2021-09-12 01:43:00 Olivia Garcia [facility] LIPASE 2021-09-12 01:40:00 Olivia Garcia [facility] COMP. METABOLIC PANEL ([id number]) 2021-09-12 01:40:00 Olivia Garcia [facility] CBC WITH DIFF 2021-09-12 01:40:00 Olivia Garcia [facility] CONSENT/REFUSAL FOR DIAGNOSIS AND TREATMENT 2021-09-12 01:26:55 Doctor Unassigned, [place] [facility] XR LUMBAR SPINE 1 VW 2021-08-15 07:03:00 Angeles Garcia i [facility] URINALYSIS 2021-08-15 06:35:00 Olivia Garcia [facility] POCT TEST 2021-08-15 06:35:00 Olivia Garcia [facility] NOTICE OF PRIVACY PRACTICES 2021-08-15 06:01:56 Doctor Unassigned, [place] [facility] CONSENT/REFUSAL FOR DIAGNOSIS AND TREATMENT 2021-08-15 05:25:54 Doctor Unassigned, [place] [facility] TROPONIN I 2021-05-28 07:50:00 Cem Cruz [facility] D-DIMER 2021-05-28 07:05:00 Cem Cruz [facility] XR CHEST 2 VW 2021-05-28 05:46:00 Cem Cruz [facility] POCT TEST 2021-05-28 05:32:00 Cem Cruz [facility] LIPASE 2021-05-28 05:29:00 Cem [facility] TROPONIN I 2021-05-28 05:29:00 Cem [facility] COMP. METABOLIC PANEL (82399) 2021-05-28 05:29:00 Cem Cruz [facility] CBC WITH DIFF 2021-05-28 05:29:00 Cem Cruz [facility] N-TERMINAL PRO-BNP 2021-05-28 05:29:00 Cem Cruz [facility] COVID-19 (ID NOW RAPID TESTING) 2021-05-28 05:29:00 Cem Cruz [facility] TROPONIN I 2021-04-08 10:01:00 Brittni Romero [facility] BASIC METABOLIC PANEL (NA, K, CL, CO2, GLUCOSE, BUN, CREATININE, CA) 2021-04-08 10:01:00 Brittni Romero [facility] CBC WITH DIFF 2021-04-08 10:01:00 Brittni Romero [facility] TROPONIN I 2021-04-08 04:12:[address] [facility] XR CHEST 1 VW 2021-04-07 22:33:33 Roberto Richards [facility] LIPASE 2021-04-07 21:52:00 Roberto Richards [facility] MAGNESIUM 2021-04-07 21:52:[address] [facility] TROPONIN I 2021-04-07 21:52:00 Roberto Richards [facility] THYROID STIMULATING HORMONE 2021-04-07 21:52:00 Brittni Romero [facility] COMP. METABOLIC PANEL (38320) 2021-04-07 21:52:00 Roberto Richards [facility] LIPID PANEL (62853)(TOTAL CHOLESTEROL, TRIGLYCERIDES, HDL) 2021-04-07 21:52:00 Brittni Romero [facility] CBC WITH DIFF 2021-04-07 21:52:00 Roberto Richards [facility] GLYCOSYLATED HEMOGLOBIN (A1C) 2021-04-07 21:52:00 Brittni Romero [facility] PROTHROMBIN TIME / INR 2021-04-07 21:52:00 [...] DIAGNOSIS AND TREATMENT 2021-04-07 21:17:47 Doctor Unassigned, [facility] CT ABDOMEN PELVIS WO CONTRAST 2021-01-12 08:10:17 [facility] 2021-01-12 08:02:00 Jaquan Narvaez [facility] URINALYSIS 2021-01-12 07:58:00 Singer [facility] COMP. METABOLIC PANEL (16709) 2021-01-12 07:56:00 Singer [facility] CBC WITH DIFF 2021-01-12 07:56:00 Singer [facility] TROPONIN I 2020-12-11 00:47:00 Mo [facility] XR CHEST 1 VW 2020-12-10 22:40:57 Bal Hassan [facility] POCT TEST 2020-12-10 22:32:00 Suzanna Hassan [facility] URINALYSIS 2020-12-10 22:30:00 Mo [facility] LIPASE 2020-12-10 22:24:00 Mo [facility] TROPONIN I 2020-12-10 22:24:[facility] (10890[facility] (ALB,T.PRO,BILI T,BU/BC,ALT,AST,ALK PHOS) 2020-12-10 22:24:00 Mo [facility] BASIC METABOLIC PANEL (NA, K, CL, CO2, GLUCOSE, BUN, CREATININE, CA) 2020-12-10 22:24:00 Hassan, [facility] CBC WITH DIFF 2020-12-10 22:24:00 Bal Hassan [facility] D-DIMER 2020-12-10 22:24:00 Bal Hassan [facility] N-TERMINAL PRO-BNP 2020-12-10 22:24:00 Mirtha Hassan [facility] POCT TEST 2020-12-04 21:18:00 Tremaine Becerra [facility] URINALYSIS 2020-12-04 21:17:00 Tremaine Becerra [facility] LIPASE 2020-12-04 20:20:00 Hernan [facility] TROPONIN I 2020-12-04 20:20:00 Hernan [facility] HEPATIC FUNCTION PANEL (17299) (ALB,T.PRO,BILI T,BU/BC,ALT,AST,ALK PHOS) 2020-12-04 20:20:00 Hernan [facility] BASIC METABOLIC PANEL (NA, K, CL, CO2, GLUCOSE, BUN, CREATININE, CA) 2020-12-04 20:20:00 Hernan [facility] CBC WITH DIFF 2020-12-04 20:20:00 Tremaine Becerra [facility] XR CHEST 1 VW 2020-12-04 20:16:54 Tremaine Becerra [facility] XR ANKLE 3+ VW LEFT 2020-12-04 20:16:54 [facility]REFUSAL FOR DIAGNOSIS AND TREATMENT 2020-12-04 19:43:45 Doctor Unassigned, [facility] XR CHEST 1 VW 2020-11-04 02:24:02 Olivia Garcia [facility] URINE DRUG (IMMUNOASSAY) - 4 ER PANEL 2020-11-04 02:19:00 Olivia Garcia [facility] URINALYSIS 2020-11-04 02:19:00 Olivia Garcia [facility] LIPASE 2020-11-04 02:16:00 Olivia Garcia [facility] TROPONIN I 2020-11-04 02:16:00 Olivia Garcia [facility] COMP. METABOLIC PANEL (14180) 2020-11-04 02:16:00 Olivia Garcia [facility] CBC WITH DIFF 2020-11-04 02:16:00 Olivia Garcia [facility] PROTHROMBIN TIME / INR 2020-11-04 02:16:00 Lucia Garcia [facility] ACTIVATED PARTIAL THRMPLAS MARCIO 2020-11-04 02:16:00 Olivia Garcia [facility] CONSENT/REFUSAL FOR DIAGNOSIS AND TREATMENT 2020-11-04 01:11:16 Doctor Unassigned, [facility] XR CHEST 1 VW 2020-09-17 17:32:21 Leeanne Wise [facility] RAPID STREP SCREEN FOR GROUP A 2020-09-17 16:31:00 Leeanne Wise [facility] COVID-19 (ID NOW RAPID TESTING) 2020-09-17 16:31:00 Leeanne Wise [facility] NOTICE OF PRIVACY PRACTICES 2020-09-17 15:47:38 Doctor Unassigned, [facility] CONSENT/REFUSAL FOR DIAGNOSIS AND TREATMENT 2020-09-17 15:47:07 Doctor Unassigned, [facility] XR FOREARM 2 VW LEFT 2020-09-07 06:59:53 Saleem Edward [facility] XR HAND 3+ VW LEFT 2020-09-07 06:59:53 Saleem Edward [facility] NOTICE OF PRIVACY PRACTICES 2020-09-07 06:06:09 Doctor Unassigned, [facility] CONSENT/REFUSAL FOR DIAGNOSIS AND TREATMENT 2020-09-07 06:03:10 Doctor Unassigned, [facility] CT ABDOMEN PELVIS W CONTRAST 2020-08-28 09:16:08 Olivia Garcia [facility] POCT TEST 2020-08-28 08:45:00 Olivia Garcia [facility] URINALYSIS 2020-08-28 08:43:00 Olivia Garcia [facility] LIPASE 2020-08-28 08:09:00 Olivia Garcia [facility] COMP. METABOLIC PANEL (22117) 2020-08-28 08:09:00 Olivia Garcia [facility] CBC WITH DIFF 2020-08-28 08:09:00 [facility] 1 VW 2020-08-14 18:10:03 [facility] LIPASE 2020-08-14 17:58:00 [facility] TROPONIN I 2020-08-14 17:58:00 [facility] COMP. METABOLIC PANEL (93857) 2020-08-14 17:58:00 [facility] CBC WITH DIFF 2020-08-14 17:58:00 [facility] URINALYSIS 2020-08-14 17:58:[address] LACTIC ACID WHOLE BLOOD 2020-08-14 17:58:00 Sophie Taylor [facility] ADC / LCC - DRUG SCREEN TRIAGE 2020-08-14 17:58:00 Best [facility] CONSENT/REFUSAL FOR DIAGNOSIS AND TREATMENT 2020-08-14 17:33:16 Doctor Unassigned, [facility] CT ABDOMEN PELVIS WO CONTRAST 2020-08-11 04:11:07 Best [facility] XR CHEST 1 VW 2020-08-11 03:56:48 [facility] POCT TEST 2020-08-11 03:10:00 Best [facility] BLOOD CULTURE SCREEN 2020-08-11 02:01:00 Best Taylor [facility] BLOOD CULTURE SCREEN 2020-08-11 01:45:00 Best [facility] LIPASE 2020-08-11 01:45:[address] [facility] TROPONIN I 2020-08-11 01:45:[address] HEPATIC FUNCTION PANEL (21105) (ALB,T.PRO,BILI T,BU/BC,ALT,AST,ALK PHOS) 2020-08-11 01:45:00 Best [facility] BASIC METABOLIC PANEL (NA, K, CL, CO2, GLUCOSE, BUN, CREATININE, CA) 2020-08-11 01:45:00 Best [facility] CBC WITH DIFF 2020-08-11 01:45:00 [facility] URINALYSIS 2020-08-11 01:45:00 Best [facility] LACTIC ACID WHOLE BLOOD 2020-08-11 01:45:00 Sophie Taylor [facility] COVID-19 (ID NOW RAPID TESTING) 2020-08-11 01:45:00 Best [facility] CONSENT/REFUSAL FOR DIAGNOSIS AND TREATMENT 2020-08-11 00:12:54 Doctor Unassigned, [facility] XR FOREARM 2 VW LEFT 2020-08-07 14:03:[address] [facility] COVID-19 (ID NOW RAPID TESTING) 2020-08-07 13:35:00 Roberto Richards [facility] NOTICE OF PRIVACY PRACTICES 2020-08-07 13:13:25 Doctor Unassigned, [facility] CONSENT/REFUSAL FOR DIAGNOSIS AND TREATMENT 2020-08-07 13:11:06 Doctor Unassigned, [facility] CONSENT/REFUSAL FOR DIAGNOSIS AND TREATMENT 2020-08-07 13:10:57 Doctor Unassigned, [facility] TROPONIN I 2020-07-01 02:03:00 Abdias [facility] POCT TEST 2020-07-01 00:51:00 Abdias Robertson [facility] URINALYSIS 2020-07-01 00:48:00 Abdias [facility] CBC WITH DIFF 2020-07-01 00:12:[address] EXTRA TUBE LT. BLUE 2020-07-01 00:12:00 Abdias Robertson [facility] LIPASE 2020-07-01 00:09:00 Abdias [facility] TROPONIN I 2020-07-01 00:09:00 Jessica [facility] BASIC METABOLIC PANEL (NA, K, CL, CO2, GLUCOSE, BUN, CREATININE, CA) 2020-07-01 00:09:00 [facility] ADC,CLC OR LCC ONLY - INFLUENZA A & B DIRECT ANTIGEN 2020-07-01 00:09:00 Jessica [facility] N-TERMINAL PRO-BNP 2020-07-01 00:09:00 Abdias Robertson [facility] XR CHEST 1 VW 2020-07-01 00:07:07 [facility] NOTICE OF PRIVACY PRACTICES 2020-06-30 23:27:46 Doctor Unassigned, [facility] CT CERVICAL SPINE WO CONTRAST 2020-06-28 23:12:00 Narayan Narvaez [facility] CONSENT/REFUSAL FOR DIAGNOSIS AND TREATMENT 2020-06-28 21:52:44 Doctor Unassigned, [facility] POCT TEST 2020-06-13 01:50:00 Leeanne Wise [facility] XR CHEST 1 VW 2020-06-13 01:18:17 Leeanne Wise [facility] URINALYSIS 2020-06-13 00:34:00 Leeanne Wise [facility] COVID-19 (ID NOW RAPID TESTING) 2020-06-13 00:34:00 Leeanne Wise [facility] LIPASE 2020-06-13 00:33:00 Drever, Leeanne [facility] TROPONIN I 2020-06-13 00:33:00 Mehnaz [facility] HEPATIC FUNCTION PANEL (71377) (ALB,T.PRO,BILI T,BU/BC,ALT,AST,ALK PHOS) 2020-06-13 00:33:00 Leeanne Wise [facility] BASIC METABOLIC PANEL (NA, K, CL, CO2, GLUCOSE, BUN, CREATININE, CA) 2020-06-13 00:33:00 Mehnaz [facility] CBC WITH DIFF 2020-06-13 00:33:00 Mehnaz [facility] Kristin [facility] D-DIMER 2020-06-13 00:33:00 Mehnaz [facility] CONSENT/REFUSAL FOR DIAGNOSIS AND TREATMENT 2020-06-12 23:27:48 Doctor Unassigned, [place] COVID-19 (ID NOW RAPID TESTING) 2020-05-16 23:50:00 Bushra Rios [facility] LIPASE 2020-05-16 23:21:00 [facility] HEPATIC FUNCTION PANEL (22774) (ALB,T.PRO,BILI T,BU/BC,ALT,AST,ALK PHOS) 2020-05-16 23:21:00 Bushra Rios [facility] BASIC METABOLIC PANEL (NA, K, CL, CO2, GLUCOSE, BUN, CREATININE, CA) 2020-05-16 23:21:00 Bushra Rios [facility] CBC WITH DIFF 2020-05-16 23:21:00 [facility] 2020-05-15 07:42:00 Roberto Richards [facility] CT ABDOMEN PELVIS W CONTRAST 2020-05-15 06:56:53 Roberto Richards [facility] CT HEAD WO CONTRAST 2020-05-15 06:56:27 Alberta Richards [facility] POCT TEST 2020-05-15 05:53:00 Alberta Richards [facility] LIPASE 2020-05-15 05:52:00 Roberto Richards [facility] HEPATIC FUNCTION PANEL (60894) (ALB,T.PRO,BILI T,BU/BC,ALT,AST,ALK PHOS) 2020-05-15 05:52:00 Roberto Richards [facility] BASIC METABOLIC PANEL (NA, K, CL, CO2, GLUCOSE, BUN, CREATININE, CA) 2020-05-15 05:52:00 Roberto Richards [facility] ETHANOL 2020-05-15 05:52:[address] CBC WITH DIFF 2020-05-15 05:52:00 Roberto Richards [facility] PROTHROMBIN TIME / INR 2020-05-15 05:52:00 Jalen Richards [facility] ACTIVATED PARTIAL THRMPLAS MARCIO 2020-05-15 05:52:00 Roberto Richards [facility] URINALYSIS 2020-05-15 05:52:[address] [facility] / LCC - DRUG SCREEN TRIAGE 2020-05-15 05:52:00 Roberto Richards [facility] NOTICE OF PRIVACY PRACTICES 2020-05-15 05:12:38 Doctor Unassigned, [facility] CONSENT/REFUSAL FOR DIAGNOSIS AND TREATMENT 2020-05-15 05:12:26 Doctor Unassigned, [facility] Plan of Care Planned Activity Planned Date Details Comments Source Encounters Start Date/Time End Date/Time Encounter Type Admission Type Attending [facility] Care Facility Care Department Encounter ID Source 2024-08-18 10:00:00 2024-08-18 10:00:00 Outpatient [facility]ANNE MONTES [id number] [facility] 2024-06-17 15:30:00 2024-06-17 15:30:00 Outpatient KELLEE DORMAN [id number] [facility] 2024-06-14 21:28:00 2024-06-15 00:28:00 Emergency X SANDY GARCIA SHINTA [facility] ERT [id number] [facility] 2024-06-14 21:28:00 2024-06-15 00:28:00 Emergency Sandy Garcia [facility]IAN[facility] AT [facility] [id number] 350.1.13.10 4.2.7.2.686 [id number] [facility] 2024-06-06 21:56:00 2024-06-07 02:40:00 Emergency X OLIVIA GARCIA WAKILI [facility] ERT [id number] [facility] 2024-06-06 21:56:00 2024-06-07 02:40:00 Emergency Olivia Garcia [facility] AT [facility] [id number] 350.1.13.10 4.2.7.2.686 [id number] [facility] 2024-06-02 00:00:00 2024-06-02 00:00:00 Outpatient JOANNE MONTES [id number] [facility] 2024-05-28 13:00:00 2024-05-28 13:00:00 Outpatient GISELLE OSORIO [id number] [facility] 2024-05-20 00:00:00 2024-05-20 00:00:00 Outpatient JOANNE MNOTES [id number] [facility] 2024-05-19 11:44:00 2024-05-19 13:35:00 Emergency X ANNALISE WRIGHT [facility] [id number] [facility] 2024-05-19 11:44:00 2024-05-19 13:35:00 Emergency Annalise Wright [facility] AT [facility] [id number] 350.1.13.10 4.2.7.2.686 [id number] [facility] 2024-05-18 11:15:00 2024-05-18 11:15:00 Outpatient LAB90 KELLEE DORMAN [id number] [facility] 2024-05-18 10:30:00 2024-05-18 10:30:00 Outpatient JOANNE MONTES [id number] [facility] 2024-05-17 18:30:00 2024-05-17 22:19:00 Emergency Auf[place] , Alesha Radha [facility] AT [facility] [id number] 350.1.13.10 4.2.7.2.686 [id number] [facility] 2024-05-13 18:04:00 2024-05-13 20:42:00 Emergency ER ARELIS KERN [facility] [id number] [facility] 2024-05-12 00:00:00 2024-05-12 00:00:00 Outpatient JOANNE MONTES [id number] [facility] 2024-05-07 18:47:00 2024-05-07 21:36:00 Emergency Wagner Saleem Knowles [facility] AT [facility] [id number] 350.1.13.10 4.2.7.2.686 [id number] [facility] 2024-04-22 09:15:00 2024-04-22 09:15:00 Outpatient FARTUN GILLESPIE [id number] [facility] 2024-04-15 10:30:00 2024-04-15 10:30:00 Outpatient JOANNE MONTES [id number] [facility] 2024-04-12 00:00:00 2024-04-12 00:00:00 Outpatient JOANNE MONTES [id number] [facility] 2024-04-10 16:20:00 2024-04-10 18:53:00 Emergency ER TAVARES MG JR [facility] [id number] [facility] 2024-04-10 16:20:00 2024-04-10 18:53:00 Departed Emergency Room [facility] [id number] 85 [facility] 2024-04-08 17:37:00 2024-04-08 20:38:00 Emergency Leigh Rojo [facility] AT [facility] [id number] 350.1.13.10 4.2.7.2.686 [id number] [facility] 2024-04-08 00:00:00 2024-04-08 00:00:00 Outpatient HUNDL, JOANNE DORMAN [id number] [facility] 2024-03-12 00:00:00 2024-03-12 00:00:00 Outpatient HUNDL, JOANNE DORMAN [id number] [facility] 2024-03-06 11:00:00 2024-03-06 11:00:00 Outpatient HUNDL, JOANNE DORMAN [id number] [facility] 2024-02-06 11:00:00 2024-02-06 11:00:00 Outpatient JO, GISELLE KELLEE DORMAN [id number] [facility] 2024-02-06 10:40:00 2024-02-06 10:40:00 Outpatient KELLEE DORMAN [id number] [facility] 2024-02-06 00:00:00 2024-02-06 00:00:00 Outpatient HUNDL, JOANNE DORMAN [id number] [facility] 2024-02-05 00:00:00 2024-02-05 00:00:00 Outpatient HUNDL, JOANNE DORMAN [id number] [facility] 2024-01-14 09:30:00 2024-01-14 09:30:00 Outpatient HUNDL, JOANNE DORMAN [id number] [facility] 2024-01-09 00:00:00 2024-01-09 00:00:00 Outpatient HUNDL, JOANNE DORMAN [id number] [facility] 2024-01-06 00:00:00 2024-01-06 00:00:00 Outpatient HUNDL, JOANNE DORMAN [id number] [facility] 2024-01-03 00:00:00 2024-01-03 00:00:00 Outpatient HUNDL, JOANNE DORMAN [id number] [facility] 2024-01-02 14:00:00 2024-01-02 14:00:00 Outpatient JOANNE MONTES KELLEE DORMAN [id number] [facility] 2023-12-13 09:30:00 2023-12-13 09:30:00 Outpatient JYOTI, JOANNE KELLEE DORMAN [id number] [facility] 2023-12-09 00:00:00 2023-12-09 00:00:00 Outpatient JYOTI, JOANNE KELLEE DORMAN [id number] [facility] 2023-12-05 00:00:00 2023-12-05 00:00:00 Outpatient JYOTI, JOANNE KELLEE DORMAN [id number] [facility] 2023-12-03 11:45:00 2023-12-03 11:45:00 Outpatient LAB90 KELLEE DORMAN [id number] [facility] 2023-12-03 11:00:00 2023-12-03 11:00:00 Outpatient JOANNE MONTES KELLEE DORMAN [id number] [facility] 2023-11-26 00:00:00 2023-11-26 00:00:00 Outpatient JOANNE MONTES KELLEE DORMAN [id number] [facility] 2023-10-31 00:00:00 2023-10-31 00:00:00 Outpatient COSMO KELLEE DORMAN [id number] [facility] 2023-10-31 00:00:00 2023-10-31 00:00:00 Outpatient GIDmitriALEXIA [facility] [id number] [facility]23-10-29 14:15:00 2023-10-29 14:15:00 Outpatient LAB90 KELLEE DORMAN [id number] [facility] 2023-10-29 13:30:00 2023-10-29 13:30:00 Outpatient JYOTI JOANNE KELLEE DORMAN [id number] [facility] 2023-10-10 21:31:00 2023-10-11 00:43:00 Emergency X OLIVIA GARCIA [facility] [id number] [facility] 2023-10-10 21:31:2023-10-11 00:43:00 Emergency Olivia Garcia [facility] [id number] 350.1.13.10 4.2.7.2.686 [id number] [facility] 2023-08-31 18:02:00 2023-08-31 22:40:00 Emergency ER SHERIDAN MCMANUS [facility] [id number] [facility] 2023-08-31 18:02:00 2023-08-31 22:40:00 emergency [facility] [id number] 2023-07-01 19:50:00 2023-07-01 22:59:00 Emergency X ROBERTO RICHARDS [facility] ERT [id number] [facility] 2023-07-01 19:50:00 2023-07-01 22:59:00 Emergency Roberto Richards [facility] [id number] 350.1.13.10 4.2.7.2.686 [id number] [facility] 2023-06-04 23:37:00 2023-06-06 13:30:00 Inpatient ER SHAN BUSCH [facility] [id number] [facility] 2023-06-04 23:37:00 2023-06-06 13:30:00 observatio n encounter [facility] [id number] 2023-05-11 01:16:00 2023-05-13 17:04:00 Inpatient ER BENITO MYLESKHAR [facility] [id number] [facility] 2023-05-11 01:16:00 2023-05-13 17:04:00 observatio n encounter [facility] [id number] [facility] [id number] 2023-05-10 21:48:00 2023-05-10 21:48:00 Emergency ER AN IRIZARRY [facility] [id number] [facility] 2023-05-09 17:40:00 2023-05-09 20:30:00 Emergency X NARAYAN NARVAEZ [facility] ERT [id number] [facility] 2023-05-09 17:40:00 2023-05-09 20:30:00 Emergency Narayan Narvaez [facility] [id number] 350.1.13.10 4.2.7.2.686 [id number] [facility] 2023-05-05 21:31:00 2023-05-06 03:15:00 Emergency ER SHERIDAN MCMANUS [facility] [id number] [facility] 2023-05-05 21:31:00 2023-05-06 03:15:00 emergency [facility] [id number] 2023-04-30 17:18:00 2023-04-30 21:20:00 Emergency NARAYAN MATA [facility] ERT [id number] [facility] 2023-04-30 17:18:00 2023-04-30 21:20:00 Emergency Singer Narayan [facility] [id number] 350.1.13.10 4.2.7.2.686 [id number] [facility] 2023-04-16 20:40:00 2023-04-16 23:10:00 Emergency X ROBERTO RICHARDS [facility] ERT [id number] [facility] 2023-04-16 20:40:00 2023-04-16 23:10:00 Emergency Roberto Richards [facility] [id number] 350.1.13.10 4.2.7.2.686 [id number] [facility] 2023-04-08 17:28:00 2023-04-08 21:20:00 Emergency X Saleem EDWARD [facility] ERT [id number] [facility] 2023-04-08 17:28:00 2023-04-08 21:20:00 Emergency Saleem Edwardge [facility] [id number] 350.1.13.10 4.2.7.2.686 [id number] [facility] 2023-03-09 20:23:00 2023-03-10 00:20:00 Emergency X ROBERTO RICHARDS [facility] ERT [id number] [facility] 2023-03-09 20:23:00 2023-03-10 00:20:00 Emergency Roberto Richards [facility] [id number] 350.1.13.10 4.2.7.2.686 [id number] [facility] 2023-03-01 19:35:00 2023-03-02 01:35:00 Emergency X OLIVIA GARCIA [facility] ERT [id number] [facility] 2023-03-01 19:35:00 2023-03-02 01:35:00 Emergency Olivia Garcia [facility] [id number] [facility] 2023-02-17 22:58:00 2023-02-18 02:22:00 Emergency X BRITTNI PADGETT [facility] ERT [id number] [facility] 2023-02-17 22:58:00 2023-02-18 02:22:00 Emergency Brittni Padgett Raad [facility] 1.2.840.114 350.1.13.10 4.2.7.2.686 [id number] [facility] 2023-02-15 13:46:00 2023-02-17 16:14:00 Outpatient X JESÚS MONTERO [facility] ALTHEA [id number] [facility] 2023-02-15 13:46:00 2023-02-17 16:14:00 [facility] 1.2.840.114 350.1.13.10 4.2.7.2.686 [id number] [facility] 2022-01-17 10:48:00 2022-01-17 10:48:00 Outpatient PATRICE_RENETTA JAZLYN [facility] [place] [address] [id number] 2022-01-09 16:47:00 2022-01-09 20:28:00 Emergency X MELIDA LONGORIA [facility] ERT [id number] [facility] 2022-01-09 16:47:00 2022-01-09 20:28:00 Emergency Melida Longoria [facility] 1.2.840.114 350.1.13.10 4.2.7.2.686 [id number] [facility] 2021-12-13 22:16:00 2021-12-14 02:28:00 Emergency X WIL MCQUEEN [facility] ERT [id number] [facility] 2021-12-13 22:16:00 2021-12-14 02:28:00 Emergency Wil Mcqueen [facility] 1.2.840.114 350.1.13.10 4.2.7.2.686 [id number] [facility] 2021-11-11 19:50:00 2021-11-11 23:17:00 Emergency X DEE WANG [facility] ERT [id number] [facility] 2021-11-11 19:50:00 2021-11-11 23:17:00 Emergency Dee Wang [facility] 1.2.840.114 350.1.13.10 4.2.7.2.686 [id number] 084 [id number] [facility] 2021-11-11 00:00:00 2021-11-11 00:00:00 Orders Only Doctor Unassigned, [place] [facility] 1.2.840.114 350.1.13.10 4.2.7.2.686 [id number] [facility] 2021-09-11 19:42:00 2021-09-11 23:02:00 [facility] [id number] 2021-09-11 19:42:00 2021-09-11 23:02:00 Emergency Dee Wang [facility] 1.2.840.114 350.1.13.10 4.2.7.2.686 [id number] 084 [id number] [facility] 2021-08-14 23:38:00 2021-08-15 02:29:00 Emergency X OLVIIA GARCIA [facility] ERT [id number] [facility] 2021-08-14 23:38:00 2021-08-15 02:29:00 Emergency Olivia Garcia [facility] 1.2.840.114 350.1.13.10 4.2.7.2.686 [id number] [facility] 2021-05-27 23:23:00 2021-05-28 04:23:00 Emergency X JIMBO CEM [facility] ERT [id number] [facility] 2021-05-27 23:23:00 2021-05-28 04:23:00 Emergency Cem Cruz [facility] 1.2.840.114 350.1.13.10 4.2.7.2.686 [id number] [id number] [facility] 2021-04-10 00:00:00 2021-04-10 00:00:00 Transition of Care Shelley Rosas 1.2.840.114 350.1.13.10 4.2.7.2.686 [id number] [facility] 2021-04-07 16:30:00 2021-04-08 17:45:00 Hospital Encounter Roberto Richards Jelani [facility] 1.2.840.114 350.1.13.10 4.2.7.2.686 [id number] [id number] [facility] 2021-04-07 16:18:00 2021-04-07 16:18:00 Emergency X [facility] ERT [id number] [facility] 2021-01-12 03:01:00 2021-01-12 04:56:00 Emergency Narayan Narvaez [facility] 1.2.840.114 350.1.13.10 4.2.7.2.686 [id number] 084 [id number] [facility] 2021-01-12 03:01:00 2021-01-12 03:01:00 Emergency X NARAYAN NARVAEZ [facility] ERT [id number] [facility] 2020-12-10 17:12:00 2020-12-10 21:14:00 Emergency Bal Hassan [facility] 1.2.840.114 350.1.13.10 4.2.7.2.686 [id number] 084 [id number] [facility] 2020-12-10 17:12:00 2020-12-10 17:12:00 Emergency X BAL HASSAN [facility] ERT [id number] [facility] 2020-12-04 14:50:00 2020-12-04 17:08:00 Emergency Tremaine Becerra [facility] 1.2.840.114 350.1.13.10 4.2.7.2.686 [id number] [id number] [facility] 2020-12-04 14:50:00 2020-12-04 17:08:00 Emergency X TREMAINE BECERRA [facility] ERT [id number] [facility] 2020-11-03 20:44:00 2020-11-03 23:34:00 Emergency DreLeeanne zuniga [facility] 1.2.840.114 350.1.13.10 4.2.7.2.686 [id number] [facility] 2020-11-03 20:44:00 2020-11-03 23:34:00 Emergency X DRELEEANNE ZUNIGA [facility] ERT [id number] [facility] 2020-09-19 12:32:00 2020-09-19 14:15:00 Emergency ER OWOMORA [facility] [id number] [facility] 2020-09-17 09:53:00 2020-09-17 11:55:00 Emergency DreLeeanne zuniga [facility] 1.2.840.114 350.1.13.10 4.2.7.2.686 [id number] 084 [id number] [facility] 2020-09-17 09:53:00 2020-09-17 11:55:00 Emergency X LEEANNE WISE [facility] ERT [id number] [facility] 2020-09-17 09:53:00 2020-09-17 11:55:00 Emergency DreLeeanne zuniga [facility] 1.2.840.114 350.1.13.10 4.2.7.2.686 [id number] 084 [id number] 2020-09-07 00:37:00 2020-09-07 01:41:00 Emergency Saleem Edward [facility] 1.2.840.114 350.1.13.10 4.2.7.2.686 [id number] [facility] 2020-09-07 00:37:00 2020-09-07 01:41:00 Emergency X Saleem EDWARD [facility] ERT [id number] [facility] 2020-09-07 00:37:00 2020-09-07 01:41:00 Emergency Saleem Edward [facility] 1.2.840.114 350.1.13.10 4.2.7.2.686 [id number] 084 [id number] 2020-09-07 00:00:00 2020-09-07 00:00:00 Orders Only Doctor Unassigned, [place] [facility] 1.2.840.114 350.1.13.10 4.2.7.2.686 [id number] [facility] 2020-09-07 00:00:00 2020-09-07 00:00:00 Orders Only Doctor Unassigned, [place] [facility] 1.2.840.114 350.1.13.10 4.2.7.2.686 [id number] 2020-08-28 01:59:00 2020-08-28 04:40:00 Emergency Olivia chung [facility] 1.2.840.114 350.1.13.10 4.2.7.2.686 [id number] 084 [id number] [facility] 2020-08-28 01:59:00 2020-08-28 04:40:00 [facility] 1.2.840.114 350.1.13.10 4.2.7.2.686 [id number] 2020-08-28 01:59:00 2020-08-28 01:59:00 Emergency X YARIMA, WAKILI [facility] ERT [id number] [facility] 2020-08-14 11:48:00 2020-08-14 13:42:00 Emergency Best Taylor [facility] 1.2.840.114 350.1.13.10 4.2.7.2.686 [id number] 084 [id number] [facility] 2020-08-14 11:48:00 2020-08-14 13:42:00 Emergency Best Taylor [facility] 1.2.840.114 350.1.13.10 4.2.7.2.686 [id number] 084 [id number] 2020-08-14 11:33:00 2020-08-14 11:33:00 Emergency BEST BORGES [facility] ERT [id number] [facility] 2020-08-10 18:35:00 2020-08-11 00:05:00 Emergency Best Taylor Wakili [facility] 1.2.840.114 350.1.13.10 4.2.7.2.686 [id number] [id number] [facility] 2020-08-10 18:35:00 2020-08-11 00:05:00 Emergency OLIVIA WAYNE [facility] ERT [id number] [facility] 2020-08-10 18:35:00 2020-08-11 00:05:00 Emergency Best Taylor W[place]ili [facility] 1.2.840.114 350.1.13.10 4.2.7.2.686 [id number] 084 [id number] 2020-08-07 07:19:00 2020-08-07 09:02:00 Emergency Maurice Roberto [facility] 1.2.840.114 350.1.13.10 4.2.7.2.686 [id number] [id number] [facility] 2020-08-07 07:19:00 2020-08-07 09:02:00 Emergency Roberto Richards [facility] 1.2.840.114 350.1.13.10 4.2.7.2.686 [id number] [id number] 2020-08-07 07:12:00 2020-08-07 07:12:00 Emergency X [facility] ERT [id number] [facility] 2020-08-07 00:00:00 2020-08-07 00:00:00 Orders Only Doctor Unassigned, [place] [facility] 1.2.840.114 350.1.13.10 4.2.7.2.686 [id number] [facility] 2020-08-07 00:00:00 2020-08-07 00:00:00 Orders Only Doctor Unassigned, [place] [facility] 1.2.840.114 350.1.13.10 4.2.7.2.686 [id number] 2020-07-01 00:00:00 2020-07-01 00:00:00 Letter (Out) [facility] 1.2.840.114 350.1.13.10 4.2.7.2.686 [id number] [facility] 2020-07-01 00:00:00 2020-07-01 00:00:00 Letter (Out) [facility] 1.2.840.114 350.1.13.10 4.2.7.2.686 [id number] 2020-06-30 17:46:00 2020-06-30 21:06:00 Emergency Abdias Robertson [facility] 1.2.840.114 350.1.13.10 4.2.7.2.686 [id number] 084 [id number] 2020-06-30 17:46:00 2020-06-30 21:06:00 Emergency Abdias Robertson [facility] 1.2.840.114 350.1.13.10 4.2.7.2.686 [id number] 084 [id number] [facility] 2020-06-30 17:46:00 2020-06-30 21:06:00 Emergency X ABDIAS ROBERTSON [facility] ERT [id number] [facility] 2020-06-28 16:00:00 2020-06-28 18:08:00 Emergency Narayan Narvaez [facility] 1.2.840.114 350.1.13.10 4.2.7.2.686 [id number] [id number] 2020-06-28 16:00:00 2020-06-28 18:08:00 Emergency Singer [facility] 1.2.840.114 350.1.13.10 4.2.7.2.686 [id number] 084 [id number] [facility] 2020-06-28 16:00:00 2020-06-28 16:00:00 Emergency NARAYAN MATA [facility] ERT [id number] [facility] 2020-06-14 00:00:00 2020-06-14 00:00:00 Telephone [facility] 1.2.840.114 350.1.13.10 4.2.7.2.686 [id number] [id number] 2020-06-14 00:00:00 2020-06-14 00:00:00 [facility] 1.2.840.114 350.1.13.10 4.2.7.2.686 [id number] [id number] [facility] 2020-06-12 17:40:00 2020-06-12 22:05:00 Emergency PonceLeeanne zuniga [facility] 1.2.840.114 350.1.13.10 4.2.7.2.686 [id number] 084 [id number] 2020-06-12 17:40:00 2020-06-12 22:05:00 Emergency Leeanne Wise [facility] 1.2.840.114 350.1.13.10 4.2.7.2.686 [id number] 084 [id number] [facility] 2020-06-12 17:28:00 2020-06-12 17:28:00 Emergency X [facility] ERT [id number] [facility] 2020-05-16 17:10:00 2020-05-16 19:01:00 Emergency Bushra Rios [facility] 1.2.840.114 350.1.13.10 4.2.7.2.686 [id number] [id number] 2020-05-16 17:10:00 2020-05-16 19:01:00 Emergency Bushra Rios [facility] 1.2.840.114 350.1.13.10 4.2.7.2.686 [id number] [id number] [facility] 2020-05-16 17:10:00 2020-05-16 17:10:00 Emergency X BUSHRA RIOS [facility] ERT [id number] [facility] 2020-05-14 23:18:00 2020-05-15 02:54:00 Emergency Roberto Richards [facility] 1.2.840.114 350.1.13.10 4.2.7.2.686 [id number] 084 [id number] 2020-05-14 23:18:00 2020-05-15 02:54:00 Emergency Maurice Roberto [facility] 1.2.840.114 350.1.13.10 4.2.7.2.686 [id number] [id number] [facility] 2020-05-14 23:14:00 2020-05-14 23:14:00 Emergency X ROBERTO RICHARDS [facility] ERT [id number] [facility] 2009-07-18 05:35:2009-07-18 09:19:00 Emergency ER SINCERE FRANK [facility] [id number] [facility] 2008-10-08 09:55:00 2008-10-08 14:19:00 Emergency ER GUMARO ALVAREZ [facility] [id number] [facility] 2008-03-26 15:21:00 2008-03-26 18:08:00 Emergency ER NEIL WILKINS [facility] [id number] [facility] 2005-05-25 06:35:00 2005-05-25 06:35:00 Outpatient LISA LUNA [facility] [id number] [facility] 2005-05-16 21:57:00 2005-05-16 23:40:00 Emergency ER JOSÉ MANUELSHARANJW [facility] [id number] [facility] 2005-04-24 18:49:00 2005-04-24 22:40:00 Emergency ER JEANINEJW [facility] [id number] [facility] 2004-12-27 20:30:00 2004-12-28 01:40:00 Emergency ER SANIA SIBLEY [facility] [id number] [facility] 2003-12-07 22:40:00 2003-12-08 02:48:00 Emergency ER TEODORA MARTINH [facility] [id number] [facility] 2003-12-06 13:57:00 2003-12-06 18:30:00 Emergency ER YIN RIOS [facility] [id number] [facility] 2003-08-31 19:43:00 2003-08-31 22:55:00 Emergency ER GUMARO ALVAREZ [facility] [id number] [facility] 2003-08-22 19:26:00 2003-08-22 22:10:00 Emergency ER ALBERTO CASTLE [facility] [id number] [facility] 2002-01-30 22:41:00 2002-01-31 01:29:00 Emergency ER ANTHONY SCHNEIDER [facility] [id number] [facility] 2001-10-28 09:15:00 2001-10-28 11:25:00 Emergency ER DARCIE MCKEON [facility] [id number] [facility] 2001-04-15 19:14:00 2001-04-15 23:10:00 Emergency ER ARLETTE ROBERT [facility] [id number] [facility] 2000-12-25 21:52:00 2000-12-26 00:15:00 Emergency ER GISELA RIOS [facility] [id number] [facility] 2000-12-23 18:51:00 2000-12-23 22:00:00 Emergency ER HUGO COFFMAN [facility] [id number] [facility] 1999-10-26 21:11:00 1999-10-27 00:20:00 Emergency ER JEANINE ASHLEYMONICA [facility] [id number] [facility] Results Test Description Test Time Test Comments Results Result Comments Source CT Abdomen pelvis w contrast 2024-06 05:39:[address] ABDOMEN PELVIS W CONTRAST HISTORY: 44 years-old; Female; Nausea/vomiting Abdominal pain, acute, nonlocalized COMPARISON: CT dated 04/08/2024. TECHNIQUE AND FINDINGS: Contiguous axial imaging from the level of the lungbases through the pubic symphysis was performed after the uncomplicatedadministration of intravenous Omnipaque contrast. Coronal and sagittalreconstructions were obtained. ?Auto mA and/or iterative reconstructionwere used to reduce radiation dose. FINDINGS: LOWER THORAX: The lung bases are clear. No cardiomegaly. LIVER: No focal hepatic lesions. Normal contour. GALLBLADDER AND BILIARY TREE: No intra or extrahepatic biliary ductaldilation. SPLEEN: Unremarkable. PANCREAS: No ductal dilatation or masses ADRENAL GLANDS: A 2.8 cm left adrenal nodule, previously characterized asadenoma on prior CT. No right adrenal nodule seen. KIDNEYS: No hydronephrosis, stones, or masses. Homogeneous and symmetricalenhancement. GI TRACT: No dilation or bowel wall thickening.The appendix is normal.. PERITONEUM AND RETROPERITONEUM: No free air or fluid collection. LYMPH NODES: No intra-abdominal or pelvic lymph node enlargement. PELVIS/BLADDER: Bladder is fully distended with no wall thickening. VESSELS: Unremarkable. BONES AND SOFT TISSUES: No suspicious lytic or sclerotic bony lesions. [facility] [id number] 05:03:33* Test Item Value Reference Range Interpretation Comme nts TROPONIN I (test code = 8630801487) 0.000 ng/mL <=0.034 DARWIN (test code = [...] of biotin. Lab Interpretation (test code = 18840-0) [facility] 04[facility]51:35* Test Item Value Reference Range Interpretation Comme nts LIPASE (test code = 6949198486) 94 U/L 0-220 Lab Interpretation (test cod e = 18711-4) Normal [facility], [id number] 04:51:30* Test Item Value Reference Range Interpretation Comme nts PREG SERUM (test code = 8502132240) Negative DARWIN (test code = DARWIN) Less than 10 IU/L. ?If low titer or ectopic is suspected, resubmit specimen in 48-72 hours. [facility]b with [id number] 04:36:57* Test Item Value Reference Range Interpretation Comme nts WBC (test code = 6690-2) 10.55 4.30-11.10 RBC (test code = 789-8) 4.58 3.93-5.25 HGB (test code = 718-7) 12.3 g/dL 11.6-15.0 HCT (test code = 4544-3) 37.4 % 35.7-45.2 MCV (test code = 787-2) 81.7 fL 80.6-95.5 MCH (test code = 785-6) 26.9 pg 25.9-32.8 MCHC (test code = 786-4) 32.9 g/dL 31.6-35.1 RDW-SD (test code = 87309-7) 44.3 fL 39.0-49.9 RDW-CV (test code = 788-0) 15.0 % 12.0-15.5 PLT (test code = 777-3) 347 166-358 MPV (test code = 11131-8) 9.4 fL 9.5-12.9 L NRBC/100 WBC (test code = 8422477751) 0.0 0.0-10.0 NRBC x10^3 (test code = 9810079365) See_Comment [Automated messa ge] The system which generated this result transmitted reference range: 10*3/?L. The reference range was not used to interpret this result as normal/abnormal. GRAN MAT (NEUT) % (test code = 770-8) 60.2 % IMM GRAN % (test code = 5128991595) 0.40 % LYMPH % (test code = 736-9) 31.3 % MONO % (test code = 5905-5) 5.8 % EOS % (test code = 713-8) 1.8 % BASO % (test code = 706-2) 0.5 % GRAN MAT x10^3(ANC) (test code = 2450550656) 6.36 10*3/uL 1.88-7.09 IMM GRAN x10^3 (test code = 4839776090) 0.04 10*3/uL 0.00-0.06 LYMPH x10^3 (test code = 731-0) 3.30 10*3/uL 1.32-3.29 H MONO x10^3 (test code = 742-7) 0.61 10*3/uL 0.33-0.92 EOS x10^3 (test code = 711-2) 0.19 10*3/uL 0.03-0.39 BASO x10^3 (test code = 704-7) 0.05 10*3/uL 0.01-0.07 Lab Interpretation (test code = 45946-5) Abnormal [facility] [id number] 07:55:17* Test Item Value Reference Range Interpretation Comme nts TROPONIN I (test code = 2131842843) 0.000 ng/mL <=0.034 DARWIN (test code = [...] of biotin. Lab Interpretation (test code = 46060-5) [facility] 1 [id number] 06:16:28Exam: Chest (1 View), 06/06/2024 11:30 PM. Ordering Physician: OLIVIA GARCIA. History: Chest pain. Technique: AP view of the chest. Technical Quality: Adequate. Comparison: Chest radiograph 05/17/2024. Findings: Normal cardiac silhouette size. ?No airspace consolidation, pleuraleffusion, or pneumothorax. No acute osseous abnormality.[facility] [id number] 05:19:00* Test Item Value Reference Range Interpretation Comme nts POCT PREG (test code = 1605) Negative On board controls acceptable with C Line (test code = 3574) Yes POCT PREG LOT # (test code = 3575) [id number] POCT PREG TEST DATE ( test code = 3576) 04/11/2025 Lab Interpretation (test cod e = 05305-2) Normal [facility] [id number] 05:00:24* Test Item Value Reference Range Interpretation Comme nts TROPONIN I (test code = 3475774772) 0.000 ng/mL <=0.034 DARWIN (test code = [...] of biotin. Lab Interpretation (test code = 71418-6) Normal [facility]. Metabolic Panel (24472)2024-06-07 05:00:19* Test Item Value Reference Range Interpretation Comme nts NA (test code = 4222924078) 139 mmol/L 135-145 K (test code = 4281185386) 3.6 mmol/L 3.5-5.0 CL (test code = 3076013519) 108 mmol/L 98-108 CO2 TOTAL (test code = 0635732900) 22 mmol/L 23-31 L AGAP (test code = 7582544029) 9 2-16 BUN (test code = 1256354451) 10 mg/dL 7-23 GLUCOSE (test code = 9274207453) 144 mg/dL 70-110 H CREATININE (test code = 2160-0) 0.62 mg/dL 0.50-1.04 TOTAL BILI (test code = 7453771518) 0.1-1.1 L CALCIUM (test code = 3663599134) 9.2 mg/dL 8.6-10.6 T PROTEIN (test code = 4826791123) 6.5 g/dL 6.3-8.2 ALBUMIN (test code = 1887927838) 3.7 g/dL 3.5-5.0 ALK PHOS (test code = 9887884663) 69 U/L 34-122 ALTv (test code = 1742-6) 14 U/L 5-35 AST(SGOT) (test code = 4761129820) 15 U/L 13-40 eGFR (test code = 80389-1) 112.1 mL/min/1.73m2 CKD-EPI eGFR (2020). Assuming creatinine has been stable day-to-day for at least three months, the eGFR indicates Category G1 (>= 90 mL/min/1.73 m2) Lab Interpretation (test code = 68748-8) Abnormal [facility] with [id number] 04:38:25* Test Item Value Reference Range Interpretation [...] 32.8 g/dL 31.6-35.1 RDW-SD (test code = 14336-5) 44.1 fL 39.0-49.9 RDW-CV (test code = 788-0) 14.9 % 12.0-15.5 PLT (test code = 777-3) 358 166-358 MPV (test code = 86634-9) 9.4 fL 9.5-12.9 L NRBC/100 WBC (test code = 4808309740) 0.0 0.0-10.0 NRBC x10^3 (test code = 4909659639) See_Comment [Automated messa ge] The system which generated this result transmitted reference range: 10*3/?L. The reference range was not used to interpret this result as normal/abnormal. GRAN MAT (NEUT) % (test code = 770-8) 58.2 % IMM GRAN % (test code = 2120820416) 0.40 % LYMPH % (test code = 736-9) 34.1 % MONO % (test code = 5905-5) 4.7 % EOS % (test code = 713-8) 2.3 % BASO % (test code = 706-2) 0.3 % GRAN MAT x10^3(ANC) (test code = 1567414772) 5.33 10*3/uL 1.88-7.09 IMM GRAN x10^3 (test code = 3183040003) 0.04 10*3/uL 0.00-0.06 LYMPH x10^3 (test code = 731-0) 3.12 10*3/uL 1.32-3.29 MONO x10^3 (test code = 742-7) 0.43 10*3/uL 0.33-0.92 EOS x10^3 (test code = 711-2) 0.21 10*3/uL 0.03-0.39 BASO x10^3 (test code = 704-7) 0.03 10*3/uL 0.01-0.07 Lab Interpretation (test code = 98426-5) [id number] 18:53:41EXAM: CT HEAD WO CONTRAST HISTORY: 44 [...] clear. Thecalvarium and central skull base are unremarkable.[facility] [id number] 04:08:39EXAM: XR HAND 3+ VW RIGHT, XR [...] No radiopaqueforeign body. Mild diffuse soft tissue swelling.[facility]W [id number] 04:08:39EXAM: XR HAND 3+ VW RIGHT, XR [...] No radiopaqueforeign body. Mild diffuse soft tissue swelling.[facility] <3 VW [id number] 04:08:39EXAM: XR HAND 3+ VW RIGHT, XR [...] radiopaqueforeign body. Mild diffuse soft tissue swelling. [facility]AST 2024-05-18 03:36:27ORDERING PHYSICIAN:ALESHA FRANKLIN CLINICAL INFORMATION: ? Facial trauma, blunt COMPARISON: [...] no evidence of retrobulbar hematomas or retroconal fatstranding.[facility] 2024-05-18 03:28:19ORDERING PHYSICIAN: [...] tissues arenormal. The visualized lung apices are clear.[facility] [id number] 02:00:00* Test Item Value Reference Range Interpretation Comme nts POCT PREG (test code = 1605) Negative On board controls acceptable with C Line (test code = 3574) Yes Lab Interpretation (test cod e = 95589-0) Normal [facility]. Metabolic Panel (71541)2024-05-08 01:19:56* Test Item Value Reference Range Interpretation Comme nts NA (test code = 2498397016) 139 mmol/L 135-145 K (test code = 1909565754) 3.3 mmol/L 3.5-5.0 L CL (test code = 1433451171) 107 mmol/L 98-108 CO2 TOTAL (test code = 0406582666) 22 mmol/L 23-31 L AGAP (test code = 6750176524) 10 2-16 BUN (test code = 5878338821) 5 mg/dL 7-23 L GLUCOSE (test code = 4633877986) 131 mg/dL 70-110 H CREATININE (test code = 2160-0) 0.72 mg/dL 0.50-1.04 TOTAL BILI (test code = 0753646622) 0.1-1.1 L CALCIUM (test code = 2297773508) 9.3 mg/dL 8.6-10.6 T PROTEIN (test code = 2884585707) 7.0 g/dL 6.3-8.2 ALBUMIN (test code = 5294832738) 4.1 g/dL 3.5-5.0 ALK PHOS (test code = 2748107532) 76 U/L 34-122 ALTv (test code = 1742-6) 27 U/L 5-35 AST(SGOT) (test code = 7621153635) 30 U/L 13-40 eGFR (test code = 63078-9) 105.2 mL/min/1.73m2 CKD-EPI eGFR (2020). Assuming creatinine has been stable day-to-day for at least three months, the eGFR indicates Category G1 (>= 90 mL/min/1.73 m2) Lab Interpretation (test code = 95602-1) [facility] [id number] 01:18:54* Test Item Value Reference Range Interpretation Comme nts TROPONIN I (test code = 1320922766) 0.003 ng/mL <=0.034 DARWIN (test code = ADRWIN) Reference (Normal) Range (defined by the 99th [...] of biotin. Lab Interpretation (test code = 42639-5) Normal [facility]Magnesium2024-[facility]-01 01:07:50* Test Item Value Reference Range Interpretation Comme nts MAGNESIUM (test code = 0146142129) 1.7 mg/dL 1.7-2.4 Lab Interpretation (test cod e = 69591-7) Normal [facility]Lipase2024-[facility]-01 01:07:30* Test Item Value Reference Range Interpretation Comme nts LIPASE (test code = 6797091983) 97 U/L 0-220 Lab Interpretation (test cod e = 53239-7) Normal [facility] HospitalCb with Mtzd8781-58-96 00:51:30* Test Item Value Reference Range Interpretation [...] 33.2 g/dL 31.6-35.1 RDW-SD (test code = 66562-8) 43.6 fL 39.0-49.9 RDW-CV (test code = 788-0) 14.8 % 12.0-15.5 PLT (test code = 777-3) 382 166-358 H MPV (test code = 26289-5) 9.7 fL 9.5-12.9 NRBC/100 WBC (test code = 0126552570) 0.0 0.0-10.0 NRBC x10^3 (test code = 3327460329) See_Comment [Automated messa ge] The system which generated this result transmitted reference range: 10*3/?L. The reference range was not used to interpret this result as normal/abnormal. GRAN MAT (NEUT) % (test code = 770-8) 63.3 % IMM GRAN % (test code = 5590570050) 0.40 % LYMPH % (test code = 736-9) 27.5 % MONO % (test code = 5905-5) 5.4 % EOS % (test code = 713-8) 2.9 % BASO % (test code = 706-2) 0.5 % GRAN MAT x10^3(ANC) (test code = 3669361742) 7.25 10*3/uL 1.88-7.09 H IMM GRAN x10^3 (test code = 4161076636) 0.05 10*3/uL 0.00-0.06 LYMPH x10^3 (test code = 731-0) 3.15 10*3/uL 1.32-3.29 MONO x10^3 (test code = 742-7) 0.62 10*3/uL 0.33-0.92 EOS x10^3 (test code = 711-2) 0.33 10*3/uL 0.03-0.39 BASO x10^3 (test code = 704-7) 0.06 10*3/uL 0.01-0.07 Lab Interpretation (test code = 52511-8) Abnormal [facility] or plasma cardiac troponin I panel by high sensitivity dnyvfa5989-94-48 17:16:00* Test Item Value Reference Range Interpretation Comme nts Troponin T High Sensitivity (test code = 14456-5) < 6.0 [facility] CtrALT (SGPT) ser/nexm4621-64-59 17:14:00* Test Item Value Reference Range Interpretation Comme nts Alanine Aminotransferase (AL T/SGPT) (test code = 1742-6) 10 [facility] CtrAmylase zeakx1932-25-63 17:14:00* Test Item Value Reference Range Interpretation Comme nts Amylase Level (test code = 1798-8) 48 [facility] SbfThwpre6411-54-96 17:14:00* Test Item Value Reference Range Interpretation Comme nts Lipase (test code = 69664263) 24 [facility] CtrALP ser/clbc7674-97-68 17:14:00* Test Item Value Reference Range Interpretation Comme nts Total Alkaline Phosphatase ( test code = 6768-6) 92 [facility] CtrSerum or plasma glucose measurement (mass/volume) 2024-04-10 17:14:00* Test Item Value Reference Range Interpretation Comme nts Random Glucose (test code = 2345-7) 109 [facility] urea nitrogen measurement (mass/volume)2024-04-10 17:14:00* Test Item Value Reference Range Interpretation Comme nts Blood Urea Nitrogen (test co de = 3094-0) 4 [facility] OdaRAH7087-45-39 17:14:00* Test Item Value Reference Range Interpretation Comme nts Aspartate Amino Transf (AST/ SGOT) (test code = ZIH8097) 14 [facility] CtrBilirubin szboz6613-39-13 17:14:00* Test Item Value Reference Range Interpretation Comme nts Total Bilirubin (test code = TFR3687) < 0.2 [facility] CtrEstimated glomerular filtration rate (GFR) gyghjifqhqydk0587-40-89 17:14:00* Test Item Value Reference Range Interpretation Comme nts Glomerular Filtration Rate C alc (test code = 668173180) > 60.00 [facility] CtrBUN/creatinine rbbce6131-25-46 17:14:00* Test Item Value Reference Range Interpretation Comme nts BUN/Creatinine Ratio (test c ode = 55132906) 7.3 [facility] JhwNZ75356-29-82 17:14:00* Test Item Value Reference Range Interpretation Comme nts Carbon Dioxide Level (test c ode = 64027002) 22 [facility] CtrAnion gap ixruwkimwcs1513-53-48 17:14:00* Test Item Value Reference Range Interpretation Comme nts Anion Gap (test code = 86032353) 16.6 [facility] CtrCalcium uxjbm5063-82-58 17:14:00* Test Item Value Reference Range Interpretation Comme nts Calcium Level (test code = 25138387) 9.9 [facility] CtrGlobulin fim5462-96-99 17:14:00* Test Item Value Reference Range Interpretation Comme nts Globulin (test code = 213466194) 3.1 [facility] CtrAmphetamine ur vbuzpr8009-76-84 17:13:00* Test Item Value Reference Range Interpretation Comme nts Urine Amphetamines Screen (t est code = 35682-9) NEGATIVE [facility] EigCzcikgvae4806-23-77 17:13:00* Test Item Value Reference Range Interpretation Comme nts Methadone Level (test code = TBH2017) NEGATIVE [facility] CtrBenzodiazepines screen me7820-81-10 17:13:00* Test Item Value Reference Range Interpretation Comme nts Urine Benzodiazepines Screen (test code = 234672047) POSITIVE [facility] CtrCannabinoids (2-bwgdxqd-JHC) nuzozuyblxo2831-57-90 17:13:00* Test Item Value Reference Range Interpretation Comme nts Urine Cannabinoids (test cod e = 862655431) NEGATIVE [facility] CtrCocaine metabolite wrmeqs7124-05-23 17:13:00* Test Item Value Reference Range Interpretation Comme nts Urine Cocaine Metabolite (te st code = 551752201) NEGATIVE [facility] CtrOpiates njwtx7923-79-07 17:13:00* Test Item Value Reference Range Interpretation Comme nts Urine Opiates Screen (test c ode = 916760422) NEGATIVE [facility] CtrUrine hydrocodone measurement (mass/volume) 2024-04-10 17:13:00* Test Item Value Reference Range Interpretation Comme nts Hydrocodone Level (test code = 3681-4) NEGATIVE [facility] CtrUrine fentanyl measurement by confirmatory method (mass/volume)2024-04-10 17:13:00* Test Item Value Reference Range Interpretation Comme nts Urine Fentanyl Screen (test code = 73542-0) NEGATIVE [facility] CtrPhencyclidine (PCP) uo2928-22-40 17:13:00* Test Item Value Reference Range Interpretation Comme nts Urine Phencyclidine (PCP) Le edilson (test code = 527520930) NEGATIVE [facility] CtrPropoxyphene [Mass/volume] in Vugrq2353-07-32 17:13:00* Test Item Value Reference Range Interpretation Comme nts Propoxyphene Level (test cod e = 3545-1) NEGATIVE [facility] CtroxyCODONE [Mass/volume] in Yqlnw7789-67-60 17:13:00* Test Item Value Reference Range Interpretation Comme nts Oxycodone Level (test code = 47955-5) NEGATIVE [facility] CtrUrine leukocyte esterase wdnqbdnlq9547-47-61 17:10:00* Test Item Value Reference Range Interpretation Comme [facility] Urine Leukocyte Esterase (te st code = 456657644) 3+ [facility] CtrRBC count ur mgez6334-72-49 17:08:00* Test Item Value Reference Range Interpretation Comme [facility] Urine RBC (test code = 798-9) 0-2 [facility] CtrUrine examination for white blood cells (WBC) 2024-04-10 17:08:00* Test Item Value Reference Range Interpretation Comme [facility] Urine WBC (test code = 127459257) >100 [facility] CtrAutomated epithelial cells count in urine sediment (number/area)2024-04-10 17:08:00* Test Item Value Reference Range Interpretation Comme nts Urine Epithelial Cells (test code = 20968-2) 6-10 [facility] CtrBacteria detection in urine sediment by light ynloirsyno0954-65-32 17:08:00* Test Item Value Reference Range Interpretation Comme nts Urine Bacteria (test code = 31152-9) Few [facility] CtrUrine casts detection by automated method 2024-04-10 17:08:00* Test Item Value Reference Range Interpretation Comme nts Urine Casts (test code = 69916-8) 0-2 [facility] CtrHCG ur VZ9582-48-74 17:03:00* Test Item Value Reference Range Interpretation Comme nts Urine HCG, Qualitative (test code = 2106-3) NEGATIVE [facility] CtrColor of Urine by Sqpy2735-85-64 17:03:00* Test Item Value Reference Range Interpretation Comme nts Urine Color (test code = 30314-9) Yellow [facility] CtrAppearance of Jxgia9369-20-33 17:03:00* Test Item Value Reference Range Interpretation Comme nts Urine Appearance (test code = 5767-9) Cloudy [facility] glucose odkifszcw5305-47-76 17:03:00* Test Item Value Reference Range Interpretation Comme nts Urine Glucose (UA) (test cod e = 2349-9) Negative [facility] CtrBilirubin bm2875-06-96 17:03:00* Test Item Value Reference Range Interpretation Comme nts Urine Bilirubin (test code = 275332706) Negative [facility] CtrKetones jd4876-85-84 17:03:00* Test Item Value Reference Range Interpretation Comme nts Urine Ketones (test code = 24515958) Negative [facility] CtrSpecific gravity of Urine by Automated test strip 2024-04-10 17:03:00* Test Item Value Reference Range Interpretation Comme nts Urine Specific [place] (test code = 87749-1) 1.006 [facility] CtrUrine blood vuxsplmqz0009-74-20 17:03:00* Test Item Value Reference Range Interpretation Comme nts Urine Blood (test code = 73849-8) Nonhemolyzed Trace [facility] CtrpH gj5996-00-35 17:03:00* Test Item Value Reference Range Interpretation Comme nts Urine pH (test code = 2756-5) 6.000 [facility] CtrProtein ol7049-85-00 17:03:00* Test Item Value Reference Range Interpretation Comme nts Urine Protein (test code = 27955251) Negative [facility] CtrUrobilinogen, urine, xe4426-12-85 17:03:00* Test Item Value Reference Range Interpretation Comme nts Urine Urobilinogen (test cod e = 095571152) 0.2 [facility] CtrUrine nitrate cdlqlzqze2362-34-00 17:03:00* Test Item Value Reference Range Interpretation Comme nts Urine Nitrate (test code = 79627-7) Negative [facility] CtrAbsolute eosinophil xfyeb7311-54-47 17:00:00* Test Item Value Reference Range Interpretation Comme nts Eosinophils # (Auto) (test c ode = FCZ0869) 0.25 [facility] CtrRBC dnmjl8229-09-24 17:00:00* Test Item Value Reference Range Interpretation Comme [facility] Red Blood Count (test code = 05092564) 5.17 [facility] DewVpkfxyxpwa6460-81-21 17:00:00* Test Item Value Reference Range Interpretation Comme [facility] Hematocrit (test code = 74899629) 41.9 [facility] CtrMCV (mean corpuscular volume) determination 2024-04-10 17:00:00* Test Item Value Reference Range Interpretation Comme [facility] Mean Corpuscular Volume (shailesh t code = 32440-9) 81.0 [facility] CtrMean corpuscular hemoglobin (MCH) determination 2024-04-10 17:00:00* Test Item Value Reference Range Interpretation Comme [facility] Mean Corpuscular Hemoglobin (test code = 22070885) 26.1 [facility] CtrMean corpuscular hemoglobin concentration (MCHC) rxzevmperwuvz2684-57-43 17:00:00* Test Item Value Reference Range Interpretation Comme [facility] Mean Corpuscular Hemoglobin Concent (test code = 38007150) 32.2 [facility] CtrRBC distribution width coefficient of variation 2024-04-10 17:00:00* Test Item Value Reference Range Interpretation Comme [facility] Red Cell Distribution Width (test code = 55191441) 15.2 [facility] CtrPlatelet yzzlw4136-36-45 17:00:00* Test Item Value Reference Range Interpretation Comme [facility] Platelet Count (test code = 59390508) 343 [facility] CtrMean platelet znicjr3914-52-60 17:00:00* Test Item Value Reference Range Interpretation Comme nts Mean Platelet Volume (test c ode = 54704251) 9.3 [facility] CtrNeutrophils seg % neo1564-43-60 17:00:00* Test Item Value Reference Range Interpretation Comme nts Neutrophils (%) (Auto) (test code = 48109-3) 71.4 [facility] CtrAbsolute immature granulocyte uznon0347-64-02 17:00:00* Test Item Value Reference Range Interpretation Comme nts Absolute Immature Granulocyt e (auto (test code = 26113-5) 0.05 [facility] CtrBlood band neutrophils count (number/volume) 2024-04-10 17:00:00* Test Item Value Reference Range Interpretation Comme nts Neutrophils # (Auto) (test c ode = 00494-2) 8.20 [facility] CtrAbsolute lymphocyte vbixh0641-19-10 17:00:00* Test Item Value Reference Range Interpretation Comme nts Lymphocytes # (Auto) (test c ode = 09039-2) 2.42 [facility] HospitalAbsolute basophil pcxjl8355-27-10 17:00:00* Test Item Value Reference Range Interpretation Comme nts Basophils # (Auto) (test cod e = 83582993) 0.03 [facility] CtrAbsolute NRBC zrmrc6060-20-77 17:00:00* Test Item Value Reference Range Interpretation Comme nts Nucleated Red Blood Cells # (test code = 058101775) 0 [facility] CtrCT ABDOMEN PELVIS WO WGUSWCDS4175-06-68 00:27:38 Ordering Physician: LEIGH ROJO Clinical indication: [...] the spine.Multilevel lumbar central canal stenosis is present.[facility]Complete Metabolic Revar5318-55-84 23:13:34* Test Item Value Reference Range Interpretation Comme nts NA (test code = 4187788805) 136 mmol/L 135-145 K (test code = 7981301359) 3.7 mmol/L 3.5-5.0 CL (test code = 5627714330) 106 mmol/L 98-108 CO2 TOTAL (test code = 5504997369) 20 mmol/L 23-31 L AGAP (test code = 1143467262) 10 2-16 BUN (test code = 0089809563) 6 mg/dL 7-23 L GLUCOSE (test code = 6670749682) 149 mg/dL 70-110 H CREATININE (test code = 2160-0) 0.63 mg/dL 0.50-1.04 TOTAL BILI (test code = 1334572416) 0.3 mg/dL 0.1-1.1 CALCIUM (test code = 8814164166) 9.2 mg/dL 8.6-10.6 T PROTEIN (test code = 0649579400) 7.4 g/dL 6.3-8.2 ALBUMIN (test code = 6615499367) 4.3 g/dL 3.5-5.0 ALK PHOS (test code = 8528166396) 74 U/L 34-122 ALTv (test code = 1742-6) 20 U/L 5-35 AST(SGOT) (test code = 9103627366) 22 U/L 13-40 eGFR (test code = 19971-1) 111.6 mL/min/1.73m2 CKD-EPI eGFR (2020). Assuming creatinine has been stable day-to-day for at least three months, the eGFR indicates Category G1 (>= 90 mL/min/1.73 m2) Lab Interpretation (test code = 54639-8) Abnormal [facility] HospitalLipase, Gpsyp0743-55-04 23:12:53* Test Item Value Reference Range Interpretation Comme nts LIPASE (test code = 1241813587) 104 U/L 0-220 Lab Interpretation (test cod e = 86552-6) Normal [facility] HospitalPOCT Flwe2625-23-45 23:01:00* Test Item Value Reference Range Interpretation Comme nts POCT PREG (test code = 1605) Negative On board controls acceptable with C Line (test code = 3574) Yes POCT PREG LOT # (test code = 3575) [id number] POCT PREG TEST DATE ( test code = 3576) Lab Interpretation (test cod e = 06551-2) Normal [facility] HospitalCBC with Blwptokooaiq2093-31-30 23:00:31* Test Item Value Reference Range Interpretation [...] 33.0 g/dL 31.6-35.1 RDW-SD (test code = 83763-8) 45.5 fL 39.0-49.9 RDW-CV (test code = 788-0) 15.3 % 12.0-15.5 PLT (test code = 777-3) 370 166-358 H MPV (test code = 25762-8) 9.3 fL 9.5-12.9 L NRBC/100 WBC (test code = 3408242081) 0.0 0.0-10.0 NRBC x10^3 (test code = 0577019130) See_Comment [Automated [employer]] The system which generated this result transmitted reference range: 10*3/?L. The reference range was not used to interpret this result as normal/abnormal. GRAN MAT (NEUT) % (test code = 770-8) 71.8 % IMM GRAN % (test code = 6308760665) 0.60 % LYMPH % (test code = 736-9) 20.9 % MONO % (test code = 5905-5) 4.9 % EOS % (test code = 713-8) 1.4 % BASO % (test code = 706-2) 0.4 % GRAN MAT x10^3(ANC) (test code = 9014989252) 9.75 10*3/uL 1.88-7.09 H IMM GRAN x10^3 (test code = 0170476822) 0.08 10*3/uL 0.00-0.06 H LYMPH x10^3 (test code = 731-0) 2.83 10*3/uL 1.32-3.29 MONO x10^3 (test code = 742-7) 0.66 10*3/uL 0.33-0.92 EOS x10^3 (test code = 711-2) 0.19 10*3/uL 0.03-0.39 BASO x10^3 (test code = 704-7) 0.05 10*3/uL 0.01-0.07 Lab Interpretation (test code = 78163-6) Abnormal [facility] HospitalCT ABDOMEN PELVIS W YBZTHUST6609-33-07 05:07:16ORDERING PHYSICIAN:OLIVIA MUSA CLINICAL INFORMATION: ? Abdominal [...] are clear. There are nosuspicious focal osseous lesions.[facility] Complete Metabolic Aemps7603-70-69 04:38:59* Test Item Value Reference Range Interpretation Comme nts NA (test code = 3479869654) 138 mmol/L 135-145 K (test code = 4537255369) 3.7 mmol/L 3.5-5.0 CL (test code = 9461740753) 108 mmol/L 98-108 CO2 TOTAL (test code = 5116827200) 22 mmol/L 23-31 L AGAP (test code = 8290432432) 8 2-16 BUN (test code = 0659646966) 12 mg/dL 7-23 GLUCOSE (test code = 5172866878) 98 mg/dL 70-110 CREATININE (test code = 2160-0) 0.62 mg/dL 0.50-1.04 TOTAL BILI (test code = 0041475118) 0.4 mg/dL 0.1-1.1 CALCIUM (test code = 4239113243) 8.9 mg/dL 8.6-10.6 T PROTEIN (test code = 0332636388) 7.1 g/dL 6.3-8.2 ALBUMIN (test code = 3602241850) 3.8 g/dL 3.5-5.0 ALK PHOS (test code = 4945669452) 89 U/L 34-122 ALTv (test code = 1742-6) 17 U/L 5-35 AST(SGOT) (test code = 5916124634) 22 U/L 13-40 eGFR (test code = 63168-8) 112.8 mL/min/1.73m2 CKD-EPI eGFR (2020). Assuming creatinine has been stable day-to-day for at least three months, the eGFR indicates Category G1 (>= 90 mL/min/1.73 m2) Lab Interpretation (test code = 27079-4) Abnormal [facility] HospitalLipase, Zznnu6713-28-80 04:38:58* Test Item Value Reference Range Interpretation Comme nts LIPASE (test code = 6610804312) 136 U/L 0-220 Lab Interpretation (test cod e = 74919-3) Normal [facility] HospitalCBC with Ppcvvkrmpsqa4056-20-86 04:19:14* Test Item Value Reference Range Interpretation [...] 32.2 g/dL 31.6-35.1 RDW-SD (test code = 56435-1) 50.2 fL 39.0-49.9 H RDW-CV (test code = 788-0) 17.3 % 12.0-15.5 H PLT (test code = 777-3) 377 166-358 H MPV (test code = 63824-6) 9.4 fL 9.5-12.9 L NRBC/100 WBC (test code = 6016718422) 0.0 0.0-10.0 NRBC x10^3 (test code = 0480836112) See_Comment [Automated messa ge] The system which generated this result transmitted reference range: 10*3/?L. The reference range was not used to interpret this result as normal/abnormal. GRAN MAT (NEUT) % (test code = 770-8) 65.3 % IMM GRAN % (test code = 1525905729) 0.40 % LYMPH % (test code = 736-9) 26.1 % MONO % (test code = 5905-5) 6.2 % EOS % (test code = 713-8) 1.6 % BASO % (test code = 706-2) 0.4 % GRAN MAT x10^3(ANC) (test code = 8632945373) 7.33 10*3/uL 1.88-7.09 H IMM GRAN x10^3 (test code = 7415422813) 0.04 10*3/uL 0.00-0.06 LYMPH x10^3 (test code = 731-0) 2.93 10*3/uL 1.32-3.29 MONO x10^3 (test code = 742-7) 0.70 10*3/uL 0.33-0.92 EOS x10^3 (test code = 711-2) 0.18 10*3/uL 0.03-0.39 BASO x10^3 (test code = 704-7) 0.05 10*3/uL 0.01-0.07 Lab Interpretation (test code = 76354-2) Abnormal [facility] HUOF7233-72-99 03:40:00* Test Item Value Reference Range Interpretation Comme nts POCT PREG (test code = 1605) Negative On board controls acceptable with C Line (test code = 3574) Yes POCT PREG LOT # (test code = 3575) [id number] POCT PREG TEST DATE ( test code = 3576) 2024-10-13 Lab Interpretation (test cod e = 46363-0) Normal [facility] HospitalXR ZML3976-21-74 04:35:04Ordering physician: ROBERTO RICHARDS INDICATION: Abdominal pain COMPARISON: CT of the abdomen and pelv is dated 03/09/2023 FINDINGS: Supine AP view of the abdomen and pelvis. There is no bowelobstruction or generalized constipation.[facility] Abkk0134-09-39 02:30:00* Test Item Value Reference Range Interpretation Comme nts POCT PREG (test code = 1605) Negative On board controls acceptable with C Line (test code = 3574) Yes POCT PREG LOT # (test code = 3575) [id number] POCT PREG TEST DATE ( test code = 3576) 2024-09-15 Lab Interpretation (test cod e = 47241-1) Normal [facility] WITH UJWF5562-41-88 00:05:06* Test Item Value Reference Range Interpretation [...] 34.2 g/dL 31.6-35.1 RDW-SD (test code = 35511-3) 41.5 fL 39.0-49.9 RDW-CV (test code = 788-0) 14.5 % 12.0-15.5 PLT (test code = 777-3) 384 See_Comment H [Automated messa ge] The system which generated this result transmitted reference range: 166 - 358 10*3/?L. The reference range was not used to interpret this result as normal/abnormal. MPV (test code = 95289-5) 9.6 fL 9.5-12.9 GRAN MAT (NEUT) % (test code = 770-8) 66.0 % IMM GRAN % (test code = 8672858661) 0.50 % LYMPH % (test code = 736-9) 27.4 % MONO % (test code = 5905-5) 4.6 % EOS % (test code = 713-8) 1.1 % BASO % (test code = 706-2) 0.4 % GRAN MAT x10^3(ANC) (test code = 3168828502) 7.96 10*3/uL 1.88-7.09 H IMM GRAN x10^3 (test code = 5410269610) 0.06 10*3/uL 0.00-0.06 LYMPH x10^3 (test code = 731-0) 3.30 10*3/uL 1.32-3.29 H MONO x10^3 (test code = 742-7) 0.56 10*3/uL 0.33-0.92 EOS x10^3 (test code = 711-2) 0.13 10*3/uL 0.03-0.39 BASO x10^3 (test code = 704-7) 0.05 10*3/uL 0.01-0.07 Lab Interpretation (test code = 55661-6) Abnormal [facility] HospitalCOMP. METABOLIC PANEL (55688)2023-05-09 23:27:13* Test Item Value Reference Range Interpretation Comme nts NA (test code = 5664496036) 137 mmol/L 135-145 K (test code = 4922091458) 3.3 mmol/L 3.5-5.0 L CL (test code = 8448348656) 103 mmol/L 98-108 CO2 TOTAL (test code = 1014439426) 20 mmol/L 23-31 L AGAP (test code = 1672220513) 14 2-16 BUN (test code = 6426823325) 5 mg/dL 7-23 L GLUCOSE (test code = 6003630481) 146 mg/dL 70-110 H CREATININE (test code = 5683814933) 0.60 mg/dL 0.50-1.04 TOTAL BILI (test code = 0369904931) 0.3 mg/dL 0.1-1.1 CALCIUM (test code = 4303008386) 9.3 mg/dL 8.6-10.6 T PROTEIN (test code = 0275867435) 7.9 g/dL 6.3-8.2 ALBUMIN (test code = 3476555989) 4.4 g/dL 3.5-5.0 ALK PHOS (test code = 4805352919) 105 U/L 34-122 ALTv (test code = 1742-6) 38 U/L 5-35 H AST(SGOT) (test code = 8284288251) 21 U/L 13-40 eGFR (test code = 73317-8) 113.7 mL/min/1.73m2 CKD-EPI eGFR (2020). Assuming creatinine has been stable day-to-day for at least three months, the eGFR indicates Category G1 (>= 90 mL/min/1.73 m2) Lab Interpretation (test code = 48840-2) Abnormal [facility] HospitalLIPASE2023-[facility]-02 23:27:13* Test Item Value Reference Range Interpretation Comme nts LIPASE (test code = 4592988656) 142 U/L 0-220 Lab Interpretation (test cod e = 12962-7) Normal [facility] HospitalCOMP. METABOLIC PANEL (36524)2023-04-30 23:41:47* Test Item Value Reference Range Interpretation Comme nts NA (test code = 8053009748) 139 mmol/L 135-145 K (test code = 2557706389) 3.3 mmol/L 3.5-5.0 L CL (test code = 9009391027) 105 mmol/L 98-108 CO2 TOTAL (test code = 9643685137) 20 mmol/L 23-31 L AGAP (test code = 0108314049) 14 2-16 BUN (test code = 6743413907) 6 mg/dL 7-23 L GLUCOSE (test code = 1231542645) 119 mg/dL 70-110 H CREATININE (test code = 1703250093) 0.59 mg/dL 0.50-1.04 TOTAL BILI (test code = 4838362765) 0.3 mg/dL 0.1-1.1 CALCIUM (test code = 6700780980) 9.7 mg/dL 8.6-10.6 T PROTEIN (test code = 2278088165) 7.6 g/dL 6.3-8.2 ALBUMIN (test code = 8477349338) 4.2 g/dL 3.5-5.0 ALK PHOS (test code = 2257449979) 78 U/L 34-122 ALTv (test code = 1742-6) 24 U/L 5-35 AST(SGOT) (test code = 1520862978) 24 U/L 13-40 eGFR (test code = 1492670227) 110.7 mL/min/1.73m2 DARWIN (test code = DARWIN) [...] imaging tests). Lab Interpretation (test code = 49135-3) Abnormal [facility] WITH [id number] 23:29:07* Test Item Value Reference Range Interpretation Comme nts WBC (test code = 6690-2) 11.56 See_Comment H [Automated [employer]] The system which generated this result transmitted reference range: 4.30 - 11.10 10*3/?L. The reference range was not used to interpret this result as normal/abnormal. RBC (test code = 789-8) 5.02 See_Comment [Automated [employer]] The system which generated this result transmitted [...] 33.7 g/dL 31.6-35.1 RDW-SD (test code = 84667-2) 41.5 fL 39.0-49.9 RDW-CV (test code = 788-0) 14.3 % 12.0-15.5 PLT (test code = 777-3) 335 See_Comment [Automated [employer]] The system which generated this result transmitted reference range: 166 - 358 10*3/?L. The reference range was not used to interpret this result as normal/abnormal. MPV (test code = 40494-9) 9.7 fL 9.5-12.9 NRBC/100 WBC (test code = 6715816211) 0.0 See_Comment [Automated [employer] ssage] The system which generated this result transmitted reference range: 0.0 - 10.0 /100 WBCs. The reference range was not used to interpret this result as normal/abnormal. NRBC x10^3 (test code = 3296975032) See_Comment [Automated [employer]] The system which generated this result transmitted reference range: 10*3/?L. The reference range was not used to interpret this result as normal/abnormal. GRAN MAT (NEUT) % (test code = 770-8) 65.7 % IMM GRAN % (test code = 6394326210) 0.50 % LYMPH % (test code = 736-9) 25.4 % MONO % (test code = 5905-5) 6.7 % EOS % (test code = 713-8) 1.2 % BASO % (test code = 706-2) 0.5 % GRAN MAT x10^3(ANC) (test code = 1245984835) 7.59 10*3/uL 1.88-7.09 H IMM GRAN x10^3 (test code = 1376339941) 0.06 10*3/uL 0.00-0.06 LYMPH x10^3 (test code = 731-0) 2.94 10*3/uL 1.32-3.29 MONO x10^3 (test code = 742-7) 0.77 10*3/uL 0.33-0.92 EOS x10^3 (test code = 711-2) 0.14 10*3/uL 0.03-0.39 BASO x10^3 (test code = 704-7) 0.06 10*3/uL 0.01-0.07 Lab Interpretation (test code = 40029-2) [id number] 22:59:00* Test Item Value Reference Range Interpretation Comme nts POCT PREG (test code = 1605) Negative On board controls acceptable with C Line (test code = 3574) Yes POCT PREG LOT # (test code = 3575) [id number] POCT PREG TEST DATE ( test code = 3576) 07/10/2024 Lab Interpretation (test cod e = 93323-5) [facility] [id number] 02:36:34* Test Item Value Reference Range Interpretation Comme nts TROPONIN I (test code = 3732404491) 0.000 ng/mL <=0.034 DARWIN (test code = [...] of biotin. Lab Interpretation (test code = 15352-0) [facility] [id number] 02:34:17* Test Item Value Reference Range Interpretation Comme nts NT-proBNP (test code = 42727-5) 40 pg/mL <=125 Lab Interpretation (test cod e = 27458-7) Normal [facility] THRMPLAS [id number] 02:33:37* Test Item Value Reference Range Interpretation Comme [facility] APTT Patient (test code = 3173-2) 25 See_Comment [Automated message] The system which generated this result transmitted reference range: 23 - 38 Seconds. The reference range was not used to interpret this result as normal/abnormal. DARWIN (test code = DARWIN) The [facility] patient population mean normal value for aPTT is 30 seconds. Lab Interpretation (test code = 65698-7) Normal [facility] / [id number] 02:31:36* Test Item Value Reference Range Interpretation [...] the indications. Lab Interpretation (test code = 98420-3) [facility]OLIC PANEL (34856)2023-04-17 02:24:56* Test Item Value Reference Range Interpretation Comme [facility] NA (test code = 9757222396) 142 mmol/L 135-145 K (test code = 6207500317) 3.1 mmol/L 3.5-5.0 L CL (test code = 5225465236) 108 mmol/L 98-108 CO2 TOTAL (test code = 0216308516) 20 mmol/L 23-31 L AGAP (test code = 4456731885) 14 2-16 BUN (test code = 5299850087) 4 mg/dL 7-23 L GLUCOSE (test code = 8259666156) 107 mg/dL 70-110 CREATININE (test code = 0706583134) 0.61 mg/dL 0.50-1.04 TOTAL BILI (test code = 5562256929) 0.2 mg/dL 0.1-1.1 CALCIUM (test code = 4766369010) 9.1 mg/dL 8.6-10.6 T PROTEIN (test code = 0633545121) 7.0 g/dL 6.3-8.2 ALBUMIN (test code = 2798809302) 3.9 g/dL 3.5-5.0 ALK PHOS (test code = 6329785920) 69 U/L 34-122 ALTv (test code = 1742-6) 21 U/L 5-35 AST(SGOT) (test code = 2508030975) 21 U/L 13-40 eGFR (test code = 3461178043) 106.5 mL/min/1.73m2 DARWIN (test code = DARWIN) [...] imaging tests). Lab Interpretation (test code = 35097-8) [facility] 02:24:56* Test Item Value Reference Range Interpretation Comme nts LIPASE (test code = 4222825002) 104 U/L 0-220 Lab Interpretation (test cod e = 05417-4) Normal [facility] WITH [id number] 02:13:31* Test Item Value Reference Range Interpretation [...] 34.5 g/dL 31.6-35.1 RDW-SD (test code = 76988-2) 39.1 fL 39.0-49.9 RDW-CV (test code = 788-0) 13.5 % 12.0-15.5 PLT (test code = 777-3) 324 See_Comment [Automated messa ge] The system which generated this result transmitted reference range: 166 - 358 10*3/?L. The reference range was not used to interpret this result as normal/abnormal. MPV (test code = 31779-7) 9.3 fL 9.5-12.9 L NRBC/100 WBC (test code = 0664025927) 0.0 See_Comment [Automated [employer]age] The system which generated this result transmitted reference range: 0.0 - 10.0 /100 WBCs. The reference range was not used to interpret this result as normal/abnormal. NRBC x10^3 (test code = 6087588953) See_Comment [Automated messa ge] The system which generated this result transmitted reference range: 10*3/?L. The reference range was not used to interpret this result as normal/abnormal. GRAN MAT (NEUT) % (test code = 770-8) 65.2 % IMM GRAN % (test code = 3030427621) 0.40 % LYMPH % (test code = 736-9) 26.5 % MONO % (test code = 5905-5) 5.8 % EOS % (test code = 713-8) 1.7 % BASO % (test code = 706-2) 0.4 % GRAN MAT x10^3(ANC) (test code = 3844141487) 7.01 10*3/uL 1.88-7.09 IMM GRAN x10^3 (test code = 2945105633) 0.04 10*3/uL 0.00-0.06 LYMPH x10^3 (test code = 731-0) 2.85 10*3/uL 1.32-3.29 MONO x10^3 (test code = 742-7) 0.62 10*3/uL 0.33-0.92 EOS x10^3 (test code = 711-2) 0.18 10*3/uL 0.03-0.39 BASO x10^3 (test code = 704-7) 0.04 10*3/uL 0.01-0.07 Lab Interpretation (test code = 23306-0) [facility] [id number] 02:11:00* Test Item Value Reference Range Interpretation Comme nts POCT PREG (test code = 1605) Negative On board controls acceptable with C Line (test code = 3574) Yes POCT PREG LOT # (test code = 3575) [id number] POCT PREG TEST DATE ( test code = 3576) 2024-09-04 Lab Interpretation (test cod e = 98168-9) [facility] [id number] 23:59:14* Test Item Value Reference Range Interpretation Comme nts TROPONIN I (test code = 2738229789) 0.000 ng/mL <=0.034 DARWIN (test code = [...] of biotin. Lab Interpretation (test code = 45854-8) Normal [facility]. METABOLIC PANEL (16900)2023-04-08 23:47:52* Test Item Value Reference Range Interpretation Comme nts NA (test code = 9495161594) 138 mmol/L 135-145 K (test code = 8140456971) 3.4 mmol/L 3.5-5.0 L CL (test code = 4216292867) 103 mmol/L 98-108 CO2 TOTAL (test code = 1778850140) 22 mmol/L 23-31 L AGAP (test code = 9893815291) 13 2-16 BUN (test code = 4960736195) 6 mg/dL 7-23 L GLUCOSE (test code = 3258876815) 106 mg/dL 70-110 CREATININE (test code = 3510003554) 0.91 mg/dL 0.50-1.04 TOTAL BILI (test code = 7815980024) 0.2 mg/dL 0.1-1.1 CALCIUM (test code = 4017205849) 8.7 mg/dL 8.6-10.6 T PROTEIN (test code = 0686089452) 7.4 g/dL 6.3-8.2 ALBUMIN (test code = 6624227304) 4.1 g/dL 3.5-5.0 ALK PHOS (test code = 1617165825) 71 U/L 34-122 ALTv (test code = 1742-6) 28 U/L 5-35 AST(SGOT) (test code = 8712400619) 28 U/L 13-40 eGFR (test code = 6139858112) 67.2 mL/min/1.73m2 DARWIN (test code = DARWIN) [...] imaging tests). Lab Interpretation (test code = 74646-0) [facility]normal [facility] 23:47:52* Test Item Value Reference Range Interpretation Comme nts MAGNESIUM (test code = 5981002492) 2.0 mg/dL 1.7-2.4 Lab Interpretation (test cod e = 27415-7) Normal [facility] 23:47:52* Test Item Value Reference Range Interpretation Comme nts LIPASE (test code = 9373310594) 74 U/L 0-220 Lab Interpretation (test cod e = 14827-7) Normal [facility] WITH [id number] 23:36:30* Test Item Value Reference Range Interpretation Comme nts WBC (test code = 6690-2) 9.95 See_Comment [Automated [employer]] The system which generated this result transmitted [...] 34.5 g/dL 31.6-35.1 RDW-SD (test code = 00909-4) 39.3 fL 39.0-49.9 RDW-CV (test code = 788-0) 13.6 % 12.0-15.5 PLT (test code = 777-3) 305 See_Comment [Automated messa ge] The system which generated this result transmitted reference range: 166 - 358 10*3/?L. The reference range was not used to interpret this result as normal/abnormal. MPV (test code = 37481-6) 9.6 fL 9.5-12.9 NRBC/100 WBC (test code = 0780704512) 0.0 See_Comment [Automated [employer]age] The system which generated this result transmitted reference range: 0.0 - 10.0 /100 WBCs. The reference range was not used to interpret this result as normal/abnormal. NRBC x10^3 (test code = 1685310408) See_Comment [Automated [employer]] The system which generated this result transmitted reference range: 10*3/?L. The reference range was not used to interpret this result as normal/abnormal. GRAN MAT (NEUT) % (test code = 770-8) 66.5 % IMM GRAN % (test code = 9938884246) 0.30 % LYMPH % (test code = 736-9) 25.3 % MONO % (test code = 5905-5) 5.2 % EOS % (test code = 713-8) 2.3 % BASO % (test code = 706-2) 0.4 % GRAN MAT x10^3(ANC) (test code = 0527337282) 6.61 10*3/uL 1.88-7.09 IMM GRAN x10^3 (test code = 0235134470) 0.03 10*3/uL 0.00-0.06 LYMPH x10^3 (test code = 731-0) 2.52 10*3/uL 1.32-3.29 MONO x10^3 (test code = 742-7) 0.52 10*3/uL 0.33-0.92 EOS x10^3 (test code = 711-2) 0.23 10*3/uL 0.03-0.39 BASO x10^3 (test code = 704-7) 0.04 10*3/uL 0.01-0.07 Lab Interpretation (test code = 15595-8) Abnormal [facility] [id number] 02:51:00* Test Item Value Reference Range Interpretation Comme nts POCT PREG (test code = 1605) Negative On board controls acceptable with C Line (test code = 3574) Yes POCT PREG LOT # (test code = 3575) [id number] POCT PREG TEST DATE ( test code = 3576) 07/10/2024 Lab Interpretation (test cod e = 03327-0) Normal [facility] [id number] 03:26:00* Test Item Value Reference Range Interpretation Comme nts POCT PREG (test code = 1605) Negative On board controls acceptable with C Line (test code = 3574) Yes POCT PREG LOT # (test code = 3575) [id number] POCT PREG TEST DATE ( test code = 3576) Lab Interpretation (test cod e = 28740-6) [facility] 22:35:38* Test Item Value Reference Range Interpretation Comme nts LIPASE (test code = 4930878743) 2049 U/L 0-220 H Lab Interpretation (test cod e = 49718-8) [facility]normal [facility] WITH [id number] 22:30:10* Test Item Value Reference Range Interpretation [...] 34.6 g/dL 31.6-35.1 RDW-SD (test code = 42109-6) 42.7 fL 39.0-49.9 RDW-CV (test code = 788-0) 14.6 % 12.0-15.5 PLT (test code = 777-3) 331 See_Comment [Automated messa ge] The system which generated this result transmitted reference range: 166 - 358 10*3/?L. The reference range was not used to interpret this result as normal/abnormal. MPV (test code = 79015-6) 9.7 fL 9.5-12.9 NRBC/100 WBC (test code = 6860914345) 0.0 See_Comment [Automated [employer]] The system which generated this result transmitted reference range: 0.0 - 10.0 /100 WBCs. The reference range was not used to interpret this result as normal/abnormal. NRBC x10^3 (test code = 2737063033) See_Comment [Automated messa ge] The system which generated this result transmitted reference range: 10*3/?L. The reference range was not used to interpret this result as normal/abnormal. GRAN MAT (NEUT) % (test code = 770-8) 65.7 % IMM GRAN % (test code = 3360478810) 0.50 % LYMPH % (test code = 736-9) 26.5 % MONO % (test code = 5905-5) 5.4 % EOS % (test code = 713-8) 1.5 % BASO % (test code = 706-2) 0.4 % GRAN MAT x10^3(ANC) (test code = 8017107800) 8.05 10*3/uL 1.88-7.09 H IMM GRAN x10^3 (test code = 8710448802) 0.06 10*3/uL 0.00-0.06 LYMPH x10^3 (test code = 731-0) 3.24 10*3/uL 1.32-3.29 MONO x10^3 (test code = 742-7) 0.66 10*3/uL 0.33-0.92 EOS x10^3 (test code = 711-2) 0.18 10*3/uL 0.03-0.39 BASO x10^3 (test code = 704-7) 0.05 10*3/uL 0.01-0.07 Lab Interpretation (test code = 03524-1) [facility]normal [facility]OL[facility] (34578)2023-02-15 22:27:47* Test Item Value Reference Range Interpretation Comme nts NA (test code = 7254121800) 138 mmol/L 135-145 K (test code = 6022900295) 3.7 mmol/L 3.5-5.0 CL (test code = 1563533622) 105 mmol/L 98-108 CO2 TOTAL (test code = 2868353704) 23 mmol/L 23-31 AGAP (test code = 5290063509) 10 2-16 BUN (test code = 0128630501) 6 mg/dL 7-23 L GLUCOSE (test code = 8662047746) 92 mg/dL 70-110 CREATININE (test code = 7437967264) 0.77 mg/dL 0.50-1.04 TOTAL BILI (test code = 9414959927) 0.7 mg/dL 0.1-1.1 CALCIUM (test code = 2053160835) 9.0 mg/dL 8.6-10.6 T PROTEIN (test code = 7651438071) 7.5 g/dL 6.3-8.2 ALBUMIN (test code = 2193023013) 4.0 g/dL 3.5-5.0 ALK PHOS (test code = 8407995036) 101 U/L 34-122 ALTv (test code = 1742-6) 25 U/L 5-35 AST(SGOT) (test code = 3943149688) 36 U/L 13-40 eGFR (test code = 5983724672) 81.8 mL/min/1.73m2 DARWIN (test code = DARWIN) [...] imaging tests). Lab Interpretation (test code = 15410-3) [facility]normal [facility]-ESUSR2656-99-13 20:56:28* Test Item Value Reference Range Interpretation Comments D-DIMER (test code = 5001936486) 0.44 See_Comment H [Automated message] The system [...] a diagnosis. Lab Interpretation (test code = 29621-5) Abnormal [facility] [id number] 01:15:16* Test Item Value Reference Range Interpretation Comments TROPONIN I (test code = 9313668794) 0.001 ng/mL See_Comment [Automated message] The system [...] of biotin. Lab Interpretation (test code = 99842-7) Normal [facility] [id number] 22:52:31* Test Item Value Reference Range Interpretation Comments TROPONIN I (test code = 8369656578) 0.001 ng/mL See_Comment [Automated message] The system [...] of biotin. Lab Interpretation (test code = 02641-8) Normal [facility] [id number] 22:49:33* Test Item Value Reference Range Interpretation Comme nts NT-proBNP (test code = 0082411877) 145 pg/mL See_Comment H [Automated message] The system which generated this result transmitted reference range: <=125. The reference range was not used to interpret this result as normal/abnormal. DARWIN (test code = DARWIN) Biotin has been reported to cause a negative bias, interpret results relative to patient's use of biotin. Lab Interpretation (test code = 44118-2) [facility] (NA, K, CL, CO2, GLUCOSE, BUN, CREATININE, CA)2022-01-09 22:40:32* Test Item Value Reference Range Interpretation Comme nts NA (test code = 1851679834) 142 mmol/L 135-145 K (test code = 0371955940) 3.3 mmol/L 3.5-5.0 L CL (test code = 3970969905) 109 mmol/L 98-108 H CO2 TOTAL (test code = 6849039030) 22 mmol/L 23-31 L AGAP (test code = 1747787978) 2-16 BUN (test code = 2933773154) 9 mg/dL 7-23 GLUCOSE (test code = 5700533973) 116 mg/dL 70-110 H CREATININE (test code = 8072533585) 0.69 mg/dL 0.50-1.04 CALCIUM (test code = 3786639205) 9.2 mg/dL 8.6-10.6 eGFR (test code = 6625058490) mL/min/1.73m2 DARWIN (test code = DARWIN) Association [...] imaging tests). Lab Interpretation (test code = 98776-4) Abnormal [facility] WITH [id number] 22:29:09* Test Item Value Reference Range Interpretation Comme nts WBC (test code = 6690-2) See_Comment [Automated [employer]] The system which generated this result transmitted reference range: 4.30 - 11.10 10*3/?L. The reference range was not used to interpret this result as normal/abnormal. RBC (test code = 789-8) See_Comment [Automated [employer]] The system which generated this result transmitted [...] 34.4 g/dL 31.6-35.1 RDW-SD (test code = 00480-6) 40.7 fL 39.0-49.9 RDW-CV (test code = 788-0) 14.1 % 12.0-15.5 PLT (test code = 777-3) See_Comment [Automated [employer]] The system which generated this result transmitted reference range: 166 - 358 10*3/?L. The reference range was not used to interpret this result as normal/abnormal. MPV (test code = 73184-6) 9.6 fL 9.5-12.9 NRBC/100 WBC (test code = 3319208905) See_Comment [Automated [employer]age] The system which generated this result transmitted reference range: 0.0 - 10.0 /100 WBCs. The reference range was not used to interpret this result as normal/abnormal. NRBC x10^3 (test code = 5421457175) <0.01 See_Comment [Automated [employer]] The system which generated this result transmitted reference range: 10*3/?L. The reference range was not used to interpret this result as normal/abnormal. GRAN MAT (NEUT) % (test code = 770-8) 54.7 % IMM GRAN % (test code = 6401971335) 0.40 % LYMPH % (test code = 736-9) 33.8 % MONO % (test code = 5905-5) 7.1 % EOS % (test code = 713-8) 3.3 % BASO % (test code = 706-2) 0.7 % GRAN MAT x10^3(ANC) (test code = 6163234618) 4.87 10*3/uL 1.88-7.09 IMM GRAN x10^3 (test code = 7126026465) 0.04 10*3/uL 0.00-0.06 LYMPH x10^3 (test code = 731-0) 3.01 10*3/uL 1.32-3.29 MONO x10^3 (test code = 742-7) 0.63 10*3/uL 0.33-0.92 EOS x10^3 (test code = 711-2) 0.29 10*3/uL 0.03-0.39 BASO x10^3 (test code = 704-7) 0.06 10*3/uL 0.01-0.07 Lab Interpretation (test code = 67786-8) [facility] [id number] 06:45:45* Test Item Value Reference Range Interpretation Comments TROPONIN I (test code = 8765093605) 0.000 ng/mL See_Comment [Automated message] The system [...] of biotin. Lab Interpretation (test code = 60908-0) Normal [facility] HospitalTHYROID STIMULATING [id number] 05:00:55 * Test Item Value Reference Range Interpretation Comme nts TSH (test code = 1452542124) See_Comment [Automated messa ge] The system which generated this result transmitted reference range: 0.45 - 4.70 mIU/L. The reference range was not used to interpret this result as normal/abnormal. Lab Interpretation (test code = 70281-1) Normal [facility] HospitalFR [id number] 04:47:50* Test Item Value Reference Range Interpretation Comme nts FREE T4 (test code = 2299022287) See_Comment [Automated messa [employer]] The system which generated this result transmitted reference range: 0.78 - 2.20 ng/dL:. The reference range was not used to interpret this result as normal/abnormal. Lab Interpretation (test code = 21888-1) Normal [facility]FREE [id number] 04:47:10* Test Item Value Reference Range Interpretation Comme nts FREE T3 (test code = 5138444305) 4.37 pg/mL 2.77-5.27 Lab Interpretation (test cod e = 73740-5) [facility] [id number] 04:42:07* Test Item Value Reference Range Interpretation Comments TROPONIN I (test code = 5695184081) 0.001 ng/mL See_Comment [Automated message] The system [...] of biotin. Lab Interpretation (test code = 35507-3) Normal [facility]. METABOLIC PANEL (04577)2021-12-14 04:30:28* Test Item Value Reference Range Interpretation Comme nts NA (test code = 4916660430) 141 mmol/L 135-145 K (test code = 2063282503) 3.6 mmol/L 3.5-5.0 CL (test code = 9521130644) 111 mmol/L 98-108 H CO2 TOTAL (test code = 5438873335) 19 mmol/L 23-31 L AGAP (test code = 7375690861) 2-16 BUN (test code = 1861554305) 15 mg/dL 7-23 GLUCOSE (test code = 6557646693) 113 mg/dL 70-110 H CREATININE (test code = 1014180659) 1.05 mg/dL 0.50-1.04 H TOTAL BILI (test code = 7682064328) 0.2 mg/dL 0.1-1.1 CALCIUM (test code = 7947879790) 9.8 mg/dL 8.6-10.6 T PROTEIN (test code = 8206741606) 6.8 g/dL 6.3-8.2 ALBUMIN (test code = 9368475658) 4.2 g/dL 3.5-5.0 ALK PHOS (test code = 3877894626) 73 U/L 34-122 ALTv (test code = 1742-6) 16 U/L 5-35 AST(SGOT) (test code = 2844142496) 19 U/L 13-40 eGFR (test code = 0213985530) mL/min/1.73m2 DARWIN (test code = DARWIN) Association [...] imaging tests). Lab Interpretation (test code = 14435-2) [facility] 04:29:48* Test Item Value Reference Range Interpretation Comme nts LIPASE (test code = 6761301879) 225 U/L 0-220 H Lab Interpretation (test cod e = 32472-9) [facility]normal [facility]PO[facility] [id number] 04:20:00* Test Item Value Reference Range Interpretation Comme nts POCT PREG (test code = 1605) negative On board controls acceptable with C Line (test code = 3574) present POCT PREG LOT # (test code = 3575) [id number] POCT PREG TEST DATE ( test code = 3576) 2023-05-07 Lab Interpretation (test cod e = 10684-1) [facility] [id number] 04:01:25* Test Item Value Reference Range Interpretation Comme nts WBC (test code = 6690-2) See_Comment [Automated [employer]] The system which generated this result transmitted reference range: 4.30 - 11.10 10*3/?L. The reference range was not used to interpret this result as normal/abnormal. RBC (test code = 789-8) See_Comment H [Automated [employer]] The system which generated this result transmitted [...] 34.3 g/dL 31.6-35.1 RDW-SD (test code = 47280-8) 39.5 fL 39.0-49.9 RDW-CV (test code = 788-0) 13.6 % 12.0-15.5 PLT (test code = 777-3) See_Comment [Automated messa ge] The system which generated this result transmitted reference range: 166 - 358 10*3/?L. The reference range was not used to interpret this result as normal/abnormal. MPV (test code = 66938-0) 9.9 fL 9.5-12.9 NRBC/100 WBC (test code = 0912426684) See_Comment [Automated [employer] ssage] The system which generated this result transmitted reference range: 0.0 - 10.0 /100 WBCs. The reference range was not used to interpret this result as normal/abnormal. NRBC x10^3 (test code = 8548829727) <0.01 See_Comment [Automated messa ge] The system which generated this result transmitted reference range: 10*3/?L. The reference range was not used to interpret this result as normal/abnormal. GRAN MAT (NEUT) % (test code = 770-8) 51.5 % IMM GRAN % (test code = 0517547961) 0.50 % LYMPH % (test code = 736-9) 35.8 % MONO % (test code = 5905-5) 9.4 % EOS % (test code = 713-8) 2.2 % BASO % (test code = 706-2) 0.6 % GRAN MAT x10^3(ANC) (test code = 7152774962) 5.37 10*3/uL 1.88-7.09 IMM GRAN x10^3 (test code = 9851050230) 0.05 10*3/uL 0.00-0.06 LYMPH x10^3 (test code = 731-0) 3.73 10*3/uL 1.32-3.29 H MONO x10^3 (test code = 742-7) 0.98 10*3/uL 0.33-0.92 H EOS x10^3 (test code = 711-2) 0.23 10*3/uL 0.03-0.39 BASO x10^3 (test code = 704-7) 0.06 10*3/uL 0.01-0.07 Lab Interpretation (test code = 72363-0) [id number] Test Item Value Reference Range Interpretation Comments TROPONIN I (test code = 0386006176) 0.001 ng/mL See_Comment [Automated message] The system [...] of biotin. Lab Interpretation (test code = 61581-7) [id number] 02:56[facility]* Test Item Value Reference Range Interpretation Comme nts POCT PREG (test code = 1605) negative On board controls acceptable with C Line (test code = 3574) present POCT PREG LOT # (test code = 3575) [id number] POCT PREG TEST DATE ( test code = 3576) 2023-04-06 Lab Interpretation (test cod e = 10639-2) [facility] [id number] 02:15:30* Test Item Value Reference Range Interpretation Comments TROPONIN I (test code = 7111999818) 0.000 ng/mL See_Comment [Automated message] The system [...] of biotin. Lab Interpretation (test code = 53454-3) [facility]-RDB2990-75-08 02:12:14* Test Item Value Reference Range Interpretation Comme nts NT-proBNP (test code = 9748377883) 109 pg/mL See_Comment [Automated message] The system which generated this result transmitted reference range: <=125. The reference range was not used to interpret this result as normal/abnormal. DARWIN (test code = DARWIN) Biotin has been reported to cause a negative bias, interpret results relative to patient's use of biotin. Lab Interpretation (test code = 77162-6) [facility] (10857)2021-11-12 02:04:12* Test Item Value Reference Range Interpretation Comme nts NA (test code = 1518177831) 140 mmol/L 135-145 K (test code = 4950175215) 4.0 mmol/L 3.5-5.0 CL (test code = 0272819826) 111 mmol/L 98-108 H CO2 TOTAL (test code = 9365790398) 17 mmol/L 23-31 L AGAP (test code = 5227611421) 2-16 BUN (test code = 6816343821) 9 mg/dL 7-23 GLUCOSE (test code = 2716235439) 105 mg/dL 70-110 CREATININE (test code = 0647467087) 0.72 mg/dL 0.50-1.04 TOTAL BILI (test code = 2081523671) 0.4 mg/dL 0.1-1.1 CALCIUM (test code = 2368254903) 9.3 mg/dL 8.6-10.6 T PROTEIN (test code = 6354768877) 6.6 g/dL 6.3-8.2 ALBUMIN (test code = 0293230133) 4.0 g/dL 3.5-5.0 ALK PHOS (test code = 0846131313) 70 U/L 34-122 ALTv (test code = 1742-6) 19 U/L 5-35 AST(SGOT) (test code = 2623082634) 21 U/L 13-40 eGFR (test code = 8337194910) mL/min/1.73m2 DARWIN (test code = DARWIN) Association [...] imaging tests). Lab Interpretation (test code = 24449-3) [facility] 02:03:32* Test Item Value Reference Range Interpretation Comme nts LIPASE (test code = 5683674921) 173 U/L 0-220 Lab Interpretation (test cod e = 20236-6) [facility] [id number] 01:43:53* Test Item Value Reference Range Interpretation Comme nts WBC (test code = 6690-2) See_Comment [Automated [employer]] The system which generated this result transmitted [...] 33.7 g/dL 31.6-35.1 RDW-SD (test code = 07891-1) 41.3 fL 39.0-49.9 RDW-CV (test code = 788-0) 14.3 % 12.0-15.5 PLT (test code = 777-3) See_Comment [Automated [employer]] The system which generated this result transmitted reference range: 166 - 358 10*3/?L. The reference range was not used to interpret this result as normal/abnormal. MPV (test code = 90444-9) 9.7 fL 9.5-12.9 NRBC/100 WBC (test code = 5694669937) See_Comment [Automated [employer] ssage] The system which generated this result transmitted reference range: 0.0 - 10.0 /100 WBCs. The reference range was not used to interpret this result as normal/abnormal. NRBC x10^3 (test code = 2747286791) <0.01 See_Comment [Automated messa ge] The system which generated this result transmitted reference range: 10*3/?L. The reference range was not used to interpret this result as normal/abnormal. GRAN MAT (NEUT) % (test code = 770-8) 62.6 % IMM GRAN % (test code = 5606001534) 0.50 % LYMPH % (test code = 736-9) 27.0 % MONO % (test code = 5905-5) 6.5 % EOS % (test code = 713-8) 2.9 % BASO % (test code = 706-2) 0.5 % GRAN MAT x10^3(ANC) (test code = 4640701507) 6.30 10*3/uL 1.88-7.09 IMM GRAN x10^3 (test code = 3009095946) 0.05 10*3/uL 0.00-0.06 LYMPH x10^3 (test code = 731-0) 2.71 10*3/uL 1.32-3.29 MONO x10^3 (test code = 742-7) 0.65 10*3/uL 0.33-0.92 EOS x10^3 (test code = 711-2) 0.29 10*3/uL 0.03-0.39 BASO x10^3 (test code = 704-7) 0.05 10*3/uL 0.01-0.07 Lab Interpretation (test code = 76237-3) [facility] [id number] 02:21:00* Test Item Value Reference Range Interpretation Comme nts POCT PREG (test code = 1605) Negative On board controls acceptable with C Line (test code = 3574) Present Lab Interpretation (test cod e = 91071-0) [facility] Metabolic Mbuqn9536-97-22 02:05:50* Test Item Value Reference Range Interpretation Comme nts NA (test code = 8657194915) 137 mmol/L 135-145 K (test code = 9971719285) 3.9 mmol/L 3.5-5.0 CL (test code = 4541981277) 109 mmol/L 98-108 H CO2 TOTAL (test code = 7902647313) 19 mmol/L 23-31 L AGAP (test code = 2067864893) 2-16 BUN (test code = 4616284466) 10 mg/dL 7-23 GLUCOSE (test code = 7671320850) 101 mg/dL 70-110 CREATININE (test code = 0252727743) 0.80 mg/dL 0.50-1.04 TOTAL BILI (test code = 5950191367) 0.3 mg/dL 0.1-1.1 CALCIUM (test code = 7645334189) 8.8 mg/dL 8.6-10.6 T PROTEIN (test code = 4822231097) 6.6 g/dL 6.3-8.2 ALBUMIN (test code = 0763326567) 4.0 g/dL 3.5-5.0 ALK PHOS (test code = 2318100326) 71 U/L 34-122 ALTv (test code = 1742-6) 18 U/L 5-35 AST(SGOT) (test code = 8352890672) 20 U/L 13-40 eGFR (test code = 4321523691) mL/min/1.73m2 DARWIN (test code = DARWIN) Association [...] imaging tests). Lab Interpretation (test code = 01363-9) Abnormal [facility] BranchLipase, Doiad9070-02-17 02:05:25* Test Item Value Reference Range Interpretation Comme nts LIPASE (test code = 7612448297) 96 U/L 0-220 Lab Interpretation (test cod e = 71176-8) Normal [facility] with Khcqiusxsbrl7402-67-09 01:53:06* Test Item Value Reference Range Interpretation [...] 34.3 g/dL 31.6-35.1 RDW-SD (test code = 80265-7) 40.5 fL 39.0-49.9 RDW-CV (test code = 788-0) 14.4 % 12.0-15.5 PLT (test code = 777-3) See_Comment [Automated messa ge] The system which generated this result transmitted reference range: 166 - 358 10*3/?L. The reference range was not used to interpret this result as normal/abnormal. MPV (test code = 64611-1) 9.4 fL 9.5-12.9 L NRBC/100 WBC (test code = 2060009444) See_Comment [Automated [employer] ssage] The system which generated this result transmitted reference range: 0.0 - 10.0 /100 WBCs. The reference range was not used to interpret this result as normal/abnormal. NRBC x10^3 (test code = 1570938664) <0.01 See_Comment [Automated messa ge] The system which generated this result transmitted reference range: 10*3/?L. The reference range was not used to interpret this result as normal/abnormal. GRAN MAT (NEUT) % (test code = 770-8) 59.8 % IMM GRAN % (test code = 2926915817) 0.40 % LYMPH % (test code = 736-9) 31.0 % MONO % (test code = 5905-5) 6.3 % EOS % (test code = 713-8) 2.0 % BASO % (test code = 706-2) 0.5 % GRAN MAT x10^3(ANC) (test code = 3171720057) 6.73 10*3/uL 1.88-7.09 IMM GRAN x10^3 (test code = 2089205991) 0.05 10*3/uL 0.00-0.06 LYMPH x10^3 (test code = 731-0) 3.50 10*3/uL 1.32-3.29 H MONO x10^3 (test code = 742-7) 0.71 10*3/uL 0.33-0.92 EOS x10^3 (test code = 711-2) 0.23 10*3/uL 0.03-0.39 BASO x10^3 (test code = 704-7) 0.06 10*3/uL 0.01-0.07 Lab Interpretation (test code = 43655-0) Abnormal [facility] Gngu6236-08-85 01:45:00* Test Item Value Reference Range Interpretation Comme nts POCT PREG (test code = 1605) negatibe On board controls acceptable with C Line (test code = 3574) present POCT PREG LOT # (test code = 3575) [id number] POCT PREG TEST DATE ( test code = 3576) 09/04/2022 Lab Interpretation (test cod e = 78357-2) Normal [facility] MLTS6175-73-76 06:35:00* Test Item Value Reference Range Interpretation Comme nts POCT PREG (test code = 1605) negative On board controls acceptable with C Line (test code = 3574) present POCT PREG LOT # (test code = 3575) [id number] POCT PREG TEST DATE ( test code = 3576) Lab Interpretation (test cod e = 40916-6) Normal [facility]TR[facility] L2737-04-89 09:09:55* Test Item Value Reference Range Interpretation Comments TROPONIN I (test code = 5320527700) 0.001 ng/mL See_Comment [Automated message] The system [...] of biotin. Lab Interpretation (test code = 34092-8) Normal [facility] HospitalD-BJGBB1521-76-06 07:23:51* Test Item Value Reference Range Interpretation Comments D-DIMER (test code = 1632600117) See_Comment [Automated message] The system which generated [...] a diagnosis. Lab Interpretation (test code = 39674-4) [facility]2021-[facility] 06:11:26* Test Item Value Reference Range Interpretation Comme nts LIPASE (test code = 9621203185) 155 U/L 0-220 Lab Interpretation (test cod e = 69010-9) Normal [facility]TR[facility] U4134-98-22 06:06:05* Test Item Value Reference Range Interpretation Comments TROPONIN I (test code = 2460797671) 0.002 ng/mL See_Comment [Automated message] The system [...] of biotin. Lab Interpretation (test code = 55826-9) Normal [facility] VSQ-TSM0244-39-21 06:03:04* Test Item Value Reference Range Interpretation Comme nts NT-proBNP (test code = 0807925678) 19 pg/mL See_Comment [Automated message] The system which generated this result transmitted reference range: <=125. The reference range was not used to interpret this result as normal/abnormal. DARWIN (test code = DARWIN) Biotin has been reported to cause a negative bias, interpret results relative to patient's use of biotin. Lab Interpretation (test code = 18832-9) Normal [facility]OL[facility] (27440)2021-05-28 05:54:25* Test Item Value Reference Range Interpretation Comme nts NA (test code = 3800075117) 136 mmol/L 135-145 K (test code = 5955683039) 3.2 mmol/L 3.5-5.0 L CL (test code = 8898172996) 109 mmol/L 98-108 H CO2 TOTAL (test code = 1739963976) 16 mmol/L 23-31 L AGAP (test code = 1443696817) 2-16 BUN (test code = 0533823061) 11 mg/dL 7-23 GLUCOSE (test code = 8592960274) 144 mg/dL 70-110 H CREATININE (test code = 1717533123) 0.84 mg/dL 0.50-1.04 TOTAL BILI (test code = 5573402412) 0.2 mg/dL 0.1-1.1 CALCIUM (test code = 5802533106) 9.4 mg/dL 8.6-10.6 T PROTEIN (test code = 3566966636) 6.9 g/dL 6.3-8.2 ALBUMIN (test code = 0030153976) 3.9 g/dL 3.5-5.0 ALK PHOS (test code = 1948027045) 106 U/L 34-122 ALTv (test code = 1742-6) 20 U/L 5-35 AST(SGOT) (test code = 6811854522) 17 U/L 13-40 eGFR (test code = 8210464098) mL/min/1.73m2 DARWIN (test code = DARWIN) Association [...] imaging tests). Lab Interpretation (test code = 93426-1) Abnormal [facility] WITH NUMD7820-97-33 05:40:06* Test Item Value Reference Range Interpretation Comme nts WBC (test code = 6690-2) See_Comment [Automated [employer]] The system which generated this result transmitted reference range: 4.30 - 11.10 10*3/?L. The reference range was not used to interpret this result as normal/abnormal. RBC (test code = 789-8) See_Comment [Automated [employer]] The system which generated this result [...] 33.3 g/dL 31.6-35.1 RDW-SD (test code = 82472-4) 39.7 fL 39.0-49.9 RDW-CV (test code = 788-0) 13.6 % 12.0-15.5 PLT (test code = 777-3) See_Comment [Automated [employer]] The system which generated this result transmitted reference range: 166 - 358 10*3/?L. The reference range was not used to interpret this result as normal/abnormal. MPV (test code = 13601-4) 9.5 fL 9.5-12.9 NRBC/100 WBC (test code = 0885439644) See_Comment [Automated [employer] ssage] The system which generated this result transmitted reference range: 0.0 - 10.0 /100 WBCs. The reference range was not used to interpret this result as normal/abnormal. NRBC x10^3 (test code = 2803931614) <0.01 See_Comment [Automated messa ge] The system which generated this result transmitted reference range: 10*3/?L. The reference range was not used to interpret this result as normal/abnormal. GRAN MAT (NEUT) % (test code = 770-8) 53.7 % IMM GRAN % (test code = 9502677063) 0.50 % LYMPH % (test code = 736-9) 36.0 % MONO % (test code = 5905-5) 6.3 % EOS % (test code = 713-8) 2.8 % BASO % (test code = 706-2) 0.7 % GRAN MAT x10^3(ANC) (test code = 9271879906) 5.38 10*3/uL 1.88-7.09 IMM GRAN x10^3 (test code = 6848249989) 0.05 10*3/uL 0.00-0.06 LYMPH x10^3 (test code = 731-0) 3.60 10*3/uL 1.32-3.29 H MONO x10^3 (test code = 742-7) 0.63 10*3/uL 0.33-0.92 EOS x10^3 (test code = 711-2) 0.28 10*3/uL 0.03-0.39 BASO x10^3 (test code = 704-7) 0.07 10*3/uL 0.01-0.07 Lab Interpretation (test code = 90891-1) [facility]normal [facility]PO[facility] [id number] 05:32:00* Test Item Value Reference Range Interpretation Comme nts POCT PREG (test code = 1605) negative On board controls acceptable with C Line (test code = 3574) present POCT PREG LOT # (test code = 3575) [id number] POCT PREG TEST DATE ( test code = 3576) 08/07/2022 Lab Interpretation (test cod e = 58486-1) Normal [facility] HospitalTroponin O9267-92-45 11:13:57* Test Item Value Reference Range Interpretation Comments TROPONIN I (test code = 9554096488) 0.002 ng/mL See_Comment [Automated message] The system [...] of biotin. Lab Interpretation (test code = 49833-5) Normal [facility] Metabolic Panel (NA, K, CL, CO2, GLUCOSE, BUN, CREATININE, CA)2021-04-08 11:04:34* Test Item Value Reference Range Interpretation Comme nts NA (test code = 5306956560) 140 mmol/L 135-145 K (test code = 9602269401) 3.6 mmol/L 3.5-5.0 CL (test code = 3814891962) 111 mmol/L 98-108 H CO2 TOTAL (test code = 1662935678) 22 mmol/L 23-31 L AGAP (test code = 3213674672) 2-16 BUN (test code = 4436211885) 10 mg/dL 7-23 GLUCOSE (test code = 7579982414) 104 mg/dL 70-110 CREATININE (test code = 1547066286) 0.70 mg/dL 0.50-1.04 CALCIUM (test code = 5313111280) 8.7 mg/dL 8.6-10.6 eGFR (test code = 6543006086) mL/min/1.73m2 DARWIN (test code = DARWIN) Association [...] imaging tests). Lab Interpretation (test code = 68280-2) Abnormal [facility] with Atypmwvhhdpx4692-26-06 10:46:50* Test Item Value Reference Range Interpretation Comme nts WBC (test code = 6690-2) See_Comment [[employer]] The system which generated this result transmitted reference range: 4.30 - 11.10 10*3/?L. The reference range was not used to interpret this result as normal/abnormal. RBC (test code = 789-8) See_Comment [[employer]] The system which generated this result transmitted [...] 33.5 g/dL 31.6-35.1 RDW-SD (test code = 62796-5) 42.0 fL 39.0-49.9 RDW-CV (test code = 788-0) 14.1 % 12.0-15.5 PLT (test code = 777-3) See_Comment [Automated messa ge] The system which generated this result transmitted reference range: 166 - 358 10*3/?L. The reference range was not used to interpret this result as normal/abnormal. MPV (test code = 86817-6) 10.0 fL 9.5-12.9 NRBC/100 WBC (test code = 9485809953) See_Comment [Automated me ssage] The system which generated this result transmitted reference range: 0.0 - 10.0 /100 WBCs. The reference range was not used to interpret this result as normal/abnormal. NRBC x10^3 (test code = 7261466856) <0.01 See_Comment [Automated me ssage] The system which generated this result transmitted reference range: 10*3/?L. The reference range was not used to interpret this result as normal/abnormal. GRAN MAT (NEUT) % (test code = 770-8) 59.1 % IMM GRAN % (test code = 0620064800) 0.70 % LYMPH % (test code = 736-9) 28.2 % MONO % (test code = 5905-5) 8.5 % EOS % (test code = 713-8) 3.0 % BASO % (test code = 706-2) 0.5 % GRAN MAT x10^3(ANC) (test code = 8645336435) 3.61 10*3/uL 1.88-7.09 IMM GRAN x10^3 (test code = 3912710037) 0.04 10*3/uL 0.00-0.06 LYMPH x10^3 (test code = 731-0) 1.72 10*3/uL 1.32-3.29 MONO x10^3 (test code = 742-7) 0.52 10*3/uL 0.33-0.92 EOS x10^3 (test code = 711-2) 0.18 10*3/uL 0.03-0.39 BASO x10^3 (test code = 704-7) 0.03 10*3/uL 0.01-0.07 [facility] HospitalTroponin P6144-15-87 05:54:48* Test Item Value Reference Range Interpretation Comments TROPONIN I (test code = 9004644836) 0.002 ng/mL See_Comment [Automated message] The system [...] of biotin. Lab Interpretation (test code = 91290-0) Normal [facility] HospitalThyroid Stimulating Hormone (TSH)2021-04-08 00:51:16* Test Item Value Reference Range Interpretation Comme nts TSH (test code = 7158867171) See_Comment [Automated messa ge] The system which generated this result transmitted reference range: 0.45 - 4.70 mIU/L. The reference range was not used to interpret this result as normal/abnormal. Lab Interpretation (test code = 22670-1) Normal [facility] HospitalGlycosylated Hemoglobin (A1C)2021-04-08 00:26:53* Test Item Value Reference Range Interpretation Comme nts HGB A1C (test code = 4548-4) 5.5 % 4.0-5.7 DARWIN (test code = DARWIN) Reference RangesNormal: <5.7%Prediabetes: 5.7 - 6.4%Diabetes: > 6.5% Lab Interpretation (test code = 10694-7) Normal [facility] HospitalLipid Panel (Total Cholesterol, Triglycerides, HDL)2021-04-08 00:20:12* Test Item Value Reference Range Interpretation Comme nts CHOL (test code = 7192528034) 223 mg/dL 120-200 H HDL (test code = 2617318277) 35 mg/dL >50 L HDLC RATIO (test code = 6914328569) See_Comment H [Automated [employer]] The system which generated this result transmitted reference range: <=4.5. The reference range was not used to interpret this result as normal/abnormal. TRIG (test code = 3552833550) 223 mg/dL 30-170 H LDL CHOL (test code = 75153-4) 143 mg/dL See_Comment [Automated messa ge] The system which generated this result transmitted reference range: <=160. The reference range was not used to interpret this result as normal/abnormal. VLDL (test code = 7554570662) 45 mg/dL 5-60 Lab Interpretation (test code = 23811-1) Abnormal [facility] HospitalMagnesium Uepou1611-94-93 00:20:07* Test Item Value Reference Range Interpretation Comme nts MAGNESIUM (test code = 9996684657) 1.7 mg/dL 1.7-2.4 Lab Interpretation (test cod e = 16225-9) Normal [facility]COMP[facility]OLIC PANEL (73395)2021-04-07 23:04:13* Test Item Value Reference Range Interpretation Comme nts NA (test code = 3289447774) 139 mmol/L 135-145 K (test code = 3816566860) 3.4 mmol/L 3.5-5.0 L CL (test code = 6775725270) 109 mmol/L 98-108 H CO2 TOTAL (test code = 6964347503) 22 mmol/L 23-31 L AGAP (test code = 2480496318) 2-16 BUN (test code = 1891796148) 10 mg/dL 7-23 GLUCOSE (test code = 8054026866) 97 mg/dL 70-110 CREATININE (test code = 5803847763) 0.84 mg/dL 0.50-1.04 TOTAL BILI (test code = 9322930661) 0.3 mg/dL 0.1-1.1 CALCIUM (test code = 5523682731) 9.2 mg/dL 8.6-10.6 T PROTEIN (test code = 1756108169) 6.6 g/dL 6.3-8.2 ALBUMIN (test code = 4748818732) 3.8 g/dL 3.5-5.0 ALK PHOS (test code = 1938262520) 69 U/L 34-122 ALTv (test code = 1742-6) 18 U/L 5-35 AST(SGOT) (test code = 6745301964) 19 U/L 13-40 eGFR (test code = 5300410538) mL/min/1.73m2 DARWIN (test code = DARWIN) Association [...] imaging tests). Lab Interpretation (test code = 35184-7) Abnormal [facility] HospitalTRMARYN [id number] 22:33:04* Test Item Value Reference Range Interpretation Comments TROPONIN I (test code = 0471118579) 0.001 ng/mL See_Comment [Automated message] The system [...] of biotin. Lab Interpretation (test code = 71526-4) Normal [facility] HospitalN-[facility]MINAL ODN-OTU9453-78-01 22:30:05* Test Item Value Reference Range Interpretation Comme [facility] NT-proBNP (test code = 9991252431) 352 pg/mL See_Comment H [Automated message] The system which generated this result transmitted reference range: <=125. The reference range was not used to interpret this result as normal/abnormal. DARWIN (test code = DARWIN) Biotin has been reported to cause a negative bias, interpret results relative to patient's use of biotin. Lab Interpretation (test code = 87593-7) Abnormal [facility] HospitalACTIVATED PARTIAL THRMPLAS JAY2408-12-16 22:28:48* Test Item Value Reference Range Interpretation Comme [facility] APTT Patient (test code = 3173-2) See_Comment [Automated message] The system which generated this result transmitted reference range: 23 - 38 Seconds. The reference range was not used to interpret this result as normal/abnormal. DARWIN (test code = DARWIN) The [facility] patient population mean normal value for aPTT is 30 seconds. Lab Interpretation (test code = 03078-0) Normal [facility] HospitalPROTHROMBIN TIME / [id number] 22:26:44* Test Item Value Reference Range Interpretation Comme [facility] PROTIME PATIENT (test code = 5964-2) See_Comment [Automated [employer]] The system which generated this result transmitted reference range: 12.0 - 14.7 Seconds. The reference range was not used to interpret this result as normal/abnormal. INR (test code = 6301-6) Normal INR <1.1; Warfarin Therapeutic range 2.0 to 3.0 or 2.5 to 3.5, depending upon the indications. Lab Interpretation (test code = 06789-1) Normal [facility]LIPASE2021-10-[facility] 22:20:05* Test Item Value Reference Range Interpretation Comme nts LIPASE (test code = 0225806219) 66 U/L 0-220 Lab Interpretation (test cod e = 22918-9) Normal [facility] HospitalCB WITH DODF8680-79-75 22:07:01* Test Item Value Reference Range Interpretation Comme nts WBC (test code = 6690-2) See_Comment [Automated [employer]] The system which generated this result transmitted reference range: 4.30 - 11.10 10*3/?L. The reference range was not used to interpret this result as normal/abnormal. RBC (test code = 789-8) See_Comment [Automated [employer]] The system which generated this result [...] 33.2 g/dL 31.6-35.1 RDW-SD (test code = 47666-7) 41.6 fL 39.0-49.9 RDW-CV (test code = 788-0) 14.1 % 12.0-15.5 PLT (test code = 777-3) See_Comment [Automated [employer]] The system which generated this result transmitted reference range: 166 - 358 10*3/?L. The reference range was not used to interpret this result as normal/abnormal. MPV (test code = 38214-9) 9.2 fL 9.5-12.9 L NRBC/100 WBC (test code = 8936325442) See_Comment [Automated me ssage] The system which generated this result transmitted reference range: 0.0 - 10.0 /100 WBCs. The reference range was not used to interpret this result as normal/abnormal. NRBC x10^3 (test code = 0069275383) <0.01 See_Comment [Automated messa ge] The system which generated this result transmitted reference range: 10*3/?L. The reference range was not used to interpret this result as normal/abnormal. GRAN MAT (NEUT) % (test code = 770-8) 61.6 % IMM GRAN % (test code = 7720776157) 0.60 % LYMPH % (test code = 736-9) 28.7 % MONO % (test code = 5905-5) 4.9 % EOS % (test code = 713-8) 3.7 % BASO % (test code = 706-2) 0.5 % GRAN MAT x10^3(ANC) (test code = 0923608728) 6.24 10*3/uL 1.88-7.09 IMM GRAN x10^3 (test code = 7186906093) 0.06 10*3/uL 0.00-0.06 LYMPH x10^3 (test code = 731-0) 2.90 10*3/uL 1.32-3.29 MONO x10^3 (test code = 742-7) 0.50 10*3/uL 0.33-0.92 EOS x10^3 (test code = 711-2) 0.37 10*3/uL 0.03-0.39 BASO x10^3 (test code = 704-7) 0.05 10*3/uL 0.01-0.07 Lab Interpretation (test code = 21664-3) [facility]normal [facility]URINALYSIS20[facility] 08:49:55* Test Item Value Reference Range Interpretation Comme nts APPEARANCE (test code = 5400213070) Cloudy Clear A COLOR (test code = 1066997865) Yellow Yellow PH (test code = 7578307778) 4.8-8.0 SP GRAVITY (test code = 9493249901) 1.003-1.030 GLU U QUAL (test code = 7924027900) Normal Normal BLOOD (test code = 8892179812) Negative Negative KETONES (test code = 4493753742) Negative Negative PROTEIN (test code = 2887-8) Negative Negative UROBILIN (test code = 8900173331) Normal Normal BILIRUBIN (test code = 0999300504) 2 mg/dL Negative A NITRITE (test code = 7041864693) Negative Negative LEUK MARC (test code = 3861861749) 75/uL Negative A RBC/HPF (test code = 3501448431) See_Comment H [Automated messa ge] The system which generated this result transmitted reference range: 0 - 3 HPF. The reference range was not used to interpret this result as normal/abnormal. WBC/HPF (test code = 0665518636) See_Comment H [Automated messa ge] The system which generated this result transmitted reference range: 0 - 5 HPF. The reference range was not used to interpret this result as normal/abnormal. BACTERIA (test code = 4480133077) Moderate Negative A MUCOUS (test code = 4396644611) Slight Negative LPF A SQ EPITH (test code = 5839935142) HPF YEAST BUD (test code = 3758513811) See_Comment H [Automated messa ge] The system which generated this result transmitted reference range: <=1 HPF. The reference range was not used to interpret this result as normal/abnormal. Ictotest (test code = 5142938400) Negative Lab Interpretation (test code = 59754-3) Abnormal [facility]. METABOLIC PANEL (65852)2021-01-12 08:49:44* Test Item Value Reference Range Interpretation Comme nts NA (test code = 5147702608) 137 mmol/L 135-145 K (test code = 1580852436) 4.6 mmol/L 3.5-5.0 CL (test code = 7662009918) 108 mmol/L 98-108 CO2 TOTAL (test code = 4924197044) 21 mmol/L 23-31 L AGAP (test code = 4010621987) 2-16 BUN (test code = 8640770739) 19 mg/dL 7-23 GLUCOSE (test code = 7728711991) 107 mg/dL 70-110 CREATININE (test code = 9460762890) 0.63 mg/dL 0.50-1.04 TOTAL BILI (test code = 2030819988) 0.4 mg/dL 0.1-1.1 CALCIUM (test code = 9009277198) 9.2 mg/dL 8.6-10.6 T PROTEIN (test code = 6764957126) 7.4 g/dL 6.3-8.2 ALBUMIN (test code = 2032442574) 4.2 g/dL 3.5-5.0 ALK PHOS (test code = 1837716252) 179 U/L 34-122 H ALTv (test code = 1742-6) 113 U/L 5-35 H AST(SGOT) (test code = 1670257346) 38 U/L 13-40 eGFR (test code = 8467252658) mL/min/1.73m2 DARWIN (test code = DARWIN) Association [...] imaging tests). Lab Interpretation (test code = 98239-6) Abnormal [facility] WITH [id number] 08:11:02* Test Item Value Reference Range Interpretation [...] 33.3 g/dL 31.6-35.1 RDW-SD (test code = 66156-4) 41.6 fL 39.0-49.9 RDW-CV (test code = 788-0) 14.0 % 12.0-15.5 PLT (test code = 777-3) See_Comment [Automated messa ge] The system which generated this result transmitted reference range: 166 - 358 10*3/?L. The reference range was not used to interpret this result as normal/abnormal. MPV (test code = 00011-6) 9.5 fL 9.5-12.9 NRBC/100 WBC (test code = 1563960104) See_Comment [Automated [employer]age] The system which generated this result transmitted reference range: 0.0 - 10.0 /100 WBCs. The reference range was not used to interpret this result as normal/abnormal. NRBC x10^3 (test code = 6987720583) <0.01 See_Comment [Automated messa ge] The system which generated this result transmitted reference range: 10*3/?L. The reference range was not used to interpret this result as normal/abnormal. GRAN MAT (NEUT) % (test code = 770-8) 68.0 % IMM GRAN % (test code = 4332991984) 0.80 % LYMPH % (test code = 736-9) 23.6 % MONO % (test code = 5905-5) 5.1 % EOS % (test code = 713-8) 2.1 % BASO % (test code = 706-2) 0.4 % GRAN MAT x10^3(ANC) (test code = 2827203896) 8.86 10*3/uL 1.88-7.09 H IMM GRAN x10^3 (test code = 5899599634) 0.11 10*3/uL 0.00-0.06 H LYMPH x10^3 (test code = 731-0) 3.07 10*3/uL 1.32-3.29 MONO x10^3 (test code = 742-7) 0.66 10*3/uL 0.33-0.92 EOS x10^3 (test code = 711-2) 0.27 10*3/uL 0.03-0.39 BASO x10^3 (test code = 704-7) 0.05 10*3/uL 0.01-0.07 Lab Interpretation (test code = 37695-7) [id number] 08:02:00* Test Item Value Reference Range Interpretation Comme nts POCT PREG (test code = 1605) negative On board controls acceptable with C Line (test code = 3574) positive POCT PREG LOT # (test code = 3575) [id number] POCT PREG TEST DATE ( test code = 3576) 07/07/2022 Lab Interpretation (test cod e = 17700-7) Normal [facility] [id number] 01:55:05* Test Item Value Reference Range Interpretation Comme nts TROPONIN I (test code = 4763732820) 0.000 ng/mL See_Comment [Automated message] The system [...] biotin. ? Lab Interpretation (test code = 69790-5) Normal [facility] 1 Xcow2087-08-29 23:41:46No radiographic evidence of an acute cardiopulmonary process. RL: 2109AFC: 08475 EXAM: XR CHEST 1 VW ORDERING PROVIDER: BAL HASSAN HISTORY: CP COMPARISON: 12/04/2020 TECHNIQUE: Portable AP radiograph of the chest. FINDINGS: Overlying monitoring leads. There is no focal consolidation,pneumothorax or appreciable pleural effusion. The card iomediastinalsilhouette is within normal limits. Trachea is midline. No acute osseousabnormality identified. [facility], Radiant Results Inft User - 12/10/2020 6:42 PM CDT EXAM: XR CHEST 1 VWORDERING PROVIDER: BAL JEFFREYORY: CP COMPARISON: 12/04/2020 TECHNIQUE: Portable AP radiograph of the chest.FINDINGS: Overlying monitoring leads. There is no focal consolidation,pneumothorax or appreciable pleural effusion. The cardiomediastinalsilhouette is within normal limits. Trachea is midline. No acute osseousabnormality identified.IMPRESSIONNo radiographic evidence of an acute cardiopulmonary process.RL: 2109AFC: 72053 [facility] Troponin [id number] 23:07:21* Test Item Value Reference Range Interpretation Comme [facility] TROPONIN I (test code = 5287569571) 0.000 ng/mL See_Comment [Automated message] The system [...] biotin. ? Lab Interpretation (test code = 02612-9) Normal [facility]AL LIU-[id number] 23:04:20* Test Item Value Reference Range Interpretation Comme [facility] NT-proBNP (test code = 0242581403) 14 pg/mL See_Comment [Automated message] The system which generated this result transmitted reference range: <=125. The reference range was not used to interpret this result as normal/abnormal. DARWIN (test code = DARWIN) Biotin has been reported to cause a negative bias, interpret results relative to patient's use of biotin. Lab Interpretation (test code = 26173-4) Normal [facility] (ALB, T.PRO, BILI T, BU/BC, ALT, AST, ALK PHOS)2020-12-10 22:58:16* Test Item Value Reference Range Interpretation Comme nts TOTAL BILI (test code = 3253965755) 0.5 mg/dL 0.1-1.1 BILI UNCON (test code = 7679572084) 0.3 mg/dL 0.1-1.1 BILI CONJ (test code = 5197207325) 0.0 mg/dL 0.0-0.3 T PROTEIN (test code = 2606699195) 8.1 g/dL 6.3-8.2 ALBUMIN (test code = 4635637730) 4.7 g/dL 3.5-5.0 ALK PHOS (test code = 7137741096) 104 U/L 34-122 ALTv (test code = 1742-6) 18 U/L 5-35 AST(SGOT) (test code = 1687247052) 23 U/L 13-40 Lab Interpretation (test cod e = 83998-1) Normal [facility] Metabolic Panel (NA, K, CL, CO2, GLUCOSE, BUN, CREATININE, CA)2020-12-10 22:57:56* Test Item Value Reference Range Interpretation Comme nts NA (test code = 2162709792) 135 mmol/L 135-145 K (test code = 2954456715) 3.7 mmol/L 3.5-5.0 CL (test code = 4452227877) 105 mmol/L 98-108 CO2 TOTAL (test code = 4076053411) 18 mmol/L 23-31 L AGAP (test code = 2676932276) 2-16 BUN (test code = 3185878759) 14 mg/dL 7-23 GLUCOSE (test code = 0954221345) 108 mg/dL 70-110 CREATININE (test code = 6683192248) 0.56 mg/dL 0.50-1.04 CALCIUM (test code = 2151063147) 9.8 mg/dL 8.6-10.6 eGFR (test code = 3642969149) mL/min/1.73m2 DARWIN (test code = DARWIN) Association [...] imaging tests). Lab Interpretation (test code = 46302-1) Abnormal [facility] HospitalLipase Rqmah2326-28-17 22:57:56* Test Item Value Reference Range Interpretation Comme nts LIPASE (test code = 6707166991) 122 U/L 0-220 Lab Interpretation (test cod e = 12930-4) Normal [facility] HospitalD-JUJHW5579-45-90 22:52:34* Test Item Value Reference Range Interpretation Comments D-DIMER (test code = 4523298695) See_Comment [Automated message] The system which generated [...] a diagnosis. Lab Interpretation (test code = 82559-9) Normal [facility] HospitalUrinalysis2021-06-05 22:52:29* Test Item Value Reference Range Interpretation Comme nts APPEARANCE (test code = 5441442539) Hazy Clear A COLOR (test code = 4469510335) Yellow Yellow PH (test code = 8556834685) 4.8-8.0 SP GRAVITY (test code = 0572339046) 1.003-1.030 GLU U QUAL (test code = 1939992452) Normal Normal BLOOD (test code = 1714304126) Negative Negative KETONES (test code = 9896934889) Negative Negative PROTEIN (test code = 2887-8) Negative Negative UROBILIN (test code = 4230479628) Normal Normal BILIRUBIN (test code = 4127703785) 2 mg/dL Negative A NITRITE (test code = 6784572863) Negative Negative LEUK MARC (test code = 8498915882) 25/uL Negative A RBC/HPF (test code = 0769906407) See_Comment [Automated [employer]] The system which generated this result transmitted reference range: 0 - 3 HPF. The reference range was not used to interpret this result as normal/abnormal. WBC/HPF (test code = 9079910563) See_Comment [Automated [employer]] The system which generated this result transmitted reference range: 0 - 5 HPF. The reference range was not used to interpret this result as normal/abnormal. BACTERIA (test code = 0771268846) Few Negative A MUCOUS (test code = 3988999142) Slight Negative LPF A SQ EPITH (test code = 8954908606) HPF Lab Interpretation (test code = 95906-3) Abnormal [facility] Hospital[facility] with Vscwyjzuxltk6803-00-29 22:45:56* Test Item Value Reference Range Interpretation [...] 33.5 g/dL 31.6-35.1 RDW-SD (test code = 46398-2) 40.5 fL 39.0-49.9 RDW-CV (test code = 788-0) 13.3 % 12.0-15.5 PLT (test code = 777-3) See_Comment H [Automated message] The system which generated this result transmitted reference range: 166 - 358 10*3/?L. The reference range was not used to interpret this result as normal/abnormal. MPV (test code = 79165-4) 9.2 fL 9.5-12.9 L NRBC/100 WBC (test code = 1283191478) See_Comment [Automated message] The system which generated this result transmitted reference range: 0.0 - 10.0 /100 WBCs. The reference range was not used to interpret this result as normal/abnormal. NRBC x10^3 (test code = 6173672066) <0.01 See_Comment [Automated message] The system which generated this result transmitted reference range: 10*3/?L. The reference range was not used to interpret this result as normal/abnormal. GRAN MAT (NEUT) % (test code = 770-8) 73.4 % IMM GRAN % (test code = 5242454504) 0.50 % LYMPH % (test code = 736-9) 17.5 % MONO % (test code = 5905-5) 6.5 % EOS % (test code = 713-8) 1.6 % BASO % (test code = 706-2) 0.5 % GRAN MAT x10^3(ANC) (test code = 8258213761) 10.21 10*3/uL 1.88-7.09 H IMM GRAN x10^3 (test code = 8198333122) 0.07 10*3/uL 0.00-0.06 H LYMPH x10^3 (test code = 731-0) 2.44 10*3/uL 1.32-3.29 MONO x10^3 (test code = 742-7) 0.90 10*3/uL 0.33-0.92 EOS x10^3 (test code = 711-2) 0.22 10*3/uL 0.03-0.39 BASO x10^3 (test code = 704-7) 0.07 10*3/uL 0.01-0.07 Lab Interpretation (test code = 81699-9) Abnormal [facility]PO[facility] Ucvb2910-13-43 22:32:00* Test Item Value Reference Range Interpretation Comme nts POCT PREG (test code = 1605) negative On board controls acceptable with C Line (test code = 3574) present POCT PREG LOT # (test code = 3575) [id number] POCT PREG TEST DATE ( test code = 3576) 06/06/2022 Lab Interpretation (test cod e = 50650-3) Normal [facility] HospitalUrinalysis2021-05-30 21:34:43* Test Item Value Reference Range Interpretation Comme nts APPEARANCE (test code = 3782941315) Clear Clear COLOR (test code = 5736631546) Yellow Yellow PH (test code = 4399276614) 4.8-8.0 SP GRAVITY (test code = 0415322123) 1.003-1.030 GLU U QUAL (test code = 8131286514) Normal Normal BLOOD (test code = 7473578363) Negative Negative KETONES (test code = 2549977604) Negative Negative PROTEIN (test code = 2887-8) Negative Negative UROBILIN (test code = 7647139598) Normal Normal BILIRUBIN (test code = 0773836918) Negative Negative NITRITE (test code = 3784254724) Negative Negative LEUK MARC (test code = 3780226037) Negative Negative RBC/HPF (test code = 6749822939) See_Comment [Automated messa ge] The system which generated this result transmitted reference range: 0 - 3 HPF. The reference range was not used to interpret this result as normal/abnormal. WBC/HPF (test code = 4901775947) <1 See_Comment [Automated messa ge] The system which generated this result transmitted reference range: 0 - 5 HPF. The reference range was not used to interpret this result as normal/abnormal. BACTERIA (test code = 7753338324) Negative Negative MUCOUS (test code = 0890109144) Slight Negative LPF A SQ EPITH (test code = 0739787228) HPF Lab Interpretation (test code = 44314-2) Abnormal [facility]PO[facility] Flpo2542-24-46 21:18:00* Test Item Value Reference Range Interpretation Comme nts POCT PREG (test code = 1605) negative On board controls acceptable with C Line (test code = 3574) present POCT PREG LOT # (test code = 3575) [id number] POCT PREG TEST DATE ( test code = 3576) 06/06/2022 Lab Interpretation (test cod e = 22957-9) Normal [facility] HospitalXR ANKLE 3+ VW LEPD7674-38-24 21:11:00No acute bony abnormality. Preliminary Report Dictated [...] study and agree with the abovereport.[facility] HospitalTrjovananin T4243-47-59 20:59:44* Test Item Value Reference Range Interpretation Comme nts TROPONIN I (test code = 5878526996) 0.000 ng/mL See_Comment [Automated message] The system [...] biotin. ? Lab Interpretation (test code = 87903-2) Normal [facility] HospitalLipase Fysni4159-27-22 20:48:20* Test Item Value Reference Range Interpretation Comme nts LIPASE (test code = 7696588587) 96 U/L 0-220 Lab Interpretation (test cod e = 03420-4) Normal [facility] HospitalBasic Metabolic Panel (NA, K, CL, CO2, GLUCOSE, BUN, CREATININE, CA)2020-12-04 20:48:20* Test Item Value Reference Range Interpretation Comme nts NA (test code = 8554156891) 138 mmol/L 135-145 K (test code = 1815050656) 3.8 mmol/L 3.5-5.0 CL (test code = 4654794109) 108 mmol/L 98-108 CO2 TOTAL (test code = 2497186176) 21 mmol/L 23-31 L AGAP (test code = 0785657713) 2-16 BUN (test code = 7758905834) 13 mg/dL 7-23 GLUCOSE (test code = 2212882237) 107 mg/dL 70-110 CREATININE (test code = 1619594328) 0.66 mg/dL 0.50-1.04 CALCIUM (test code = 7230603757) 9.3 mg/dL 8.6-10.6 eGFR (test code = 8529254734) mL/min/1.73m2 DARWIN (test code = DARWIN) Association [...] imaging tests). Lab Interpretation (test code = 75234-4) Abnormal [facility] (ALB, T.PRO, BILI T, BU/BC, ALT, AST, ALK PHOS)2020-12-04 20:48:20* Test Item Value Reference Range Interpretation Comme nts TOTAL BILI (test code = 2928943906) 0.3 mg/dL 0.1-1.1 BILI UNCON (test code = 8968753371) 0.1 mg/dL 0.1-1.1 BILI CONJ (test code = 5053512711) 0.0 mg/dL 0.0-0.3 T PROTEIN (test code = 9602193960) 7.0 g/dL 6.3-8.2 ALBUMIN (test code = 0611330933) 4.0 g/dL 3.5-5.0 ALK PHOS (test code = 1597822716) 114 U/L 34-122 ALTv (test code = 1742-6) 30 U/L 5-35 AST(SGOT) (test code = 0118744389) 23 U/L 13-40 Lab Interpretation (test cod e = 27761-8) Normal [facility] with Pxjsdhnjyyii7406-06-88 20:35:01* Test Item Value Reference Range Interpretation Comme nts WBC (test code = 6690-2) See_Comment [Automated [employer]] The system which generated this result transmitted reference range: 4.30 - 11.10 10*3/?L. The reference range was not used to interpret this result as normal/abnormal. RBC (test code = 789-8) See_Comment [Automated [employer]] The system which generated this result transmitted [...] 34.0 g/dL 31.6-35.1 RDW-SD (test code = 82204-2) 39.8 fL 39.0-49.9 RDW-CV (test code = 788-0) 12.9 % 12.0-15.5 PLT (test code = 777-3) See_Comment [Automated messa ge] The system which generated this result transmitted reference range: 166 - 358 10*3/?L. The reference range was not used to interpret this result as normal/abnormal. MPV (test code = 50064-0) 9.3 fL 9.5-12.9 L NRBC/100 WBC (test code = 9539259870) See_Comment [Automated [employer]age] The system which generated this result transmitted reference range: 0.0 - 10.0 /100 WBCs. The reference range was not used to interpret this result as normal/abnormal. NRBC x10^3 (test code = 4249415468) <0.01 See_Comment [Automated messa ge] The system which generated this result transmitted reference range: 10*3/?L. The reference range was not used to interpret this result as normal/abnormal. GRAN MAT (NEUT) % (test code = 770-8) 71.5 % IMM GRAN % (test code = 0945059672) 0.30 % LYMPH % (test code = 736-9) 19.8 % MONO % (test code = 5905-5) 6.2 % EOS % (test code = 713-8) 1.8 % BASO % (test code = 706-2) 0.4 % GRAN MAT x10^3(ANC) (test code = 9581193747) 6.79 10*3/uL 1.88-7.09 IMM GRAN x10^3 (test code = 5388652213) 0.03 10*3/uL 0.00-0.06 LYMPH x10^3 (test code = 731-0) 1.88 10*3/uL 1.32-3.29 MONO x10^3 (test code = 742-7) 0.59 10*3/uL 0.33-0.92 EOS x10^3 (test code = 711-2) 0.17 10*3/uL 0.03-0.39 BASO x10^3 (test code = 704-7) 0.04 10*3/uL 0.01-0.07 Lab Interpretation (test code = 84510-0) Abnormal [facility]DR[facility] ([facility]INE)2020-11-04 02:54:38* Test Item Value Reference Range Interpretation Comme nts AMPHET (test code = 0226331012) Negative Negative Cocaine Metabolite (test code = 8003298478) Negative Negative OPIATES (test code = 1099492456) Presumptive Positive Negative A THC (test code = 5562410198) Negative Negative DARWIN (test code = DARWIN) Urine Drug Cutoff Ranges Amphetamine: ? 1,000 ng/mLCocaine: ? 150 ng/mLOpiates: ? 300 ng/mLCannabinoids: ?50 ng/mL The results are to be used only for medical (i.e., treatment) purposes. Unconfirmed screening results must not be used for non-medical purposes (e.g., employment testing, legal testing). Lab Interpretation (test code = 91681-9) Abnormal [facility] HospitalTROPONIN [id number] 02:51:11* Test Item Value Reference Range Interpretation Comme nts TROPONIN I (test code = 9954956527) 0.001 ng/mL See_Comment [Automated message] The system [...] biotin. ? Lab Interpretation (test code = 27578-7) Normal [facility] HospitalaPTT2021-04-30 02:41:10* Test Item Value Reference Range Interpretation Comme nts APTT Patient (test code = 3173-2) See_Comment [Automated message] The system which generated this result transmitted reference range: 23 - 38 Seconds. The reference range was not used to interpret this result as normal/abnormal. DARWIN (test code = DARWIN) The [facility] patient population mean normal value for aPTT is 30 seconds. Lab Interpretation (test code = 63194-6) Normal [facility] HospitalURINALYSIS2021-04-30 02:40:40* Test Item Value Reference Range Interpretation Comme nts APPEARANCE (test code = 5132819557) Clear Clear COLOR (test code = 9710063746) Yellow Yellow PH (test code = 0268646429) 4.8-8.0 SP GRAVITY (test code = 7547040644) 1.003-1.030 GLU U QUAL (test code = 7012980705) Normal Normal BLOOD (test code = 9446153281) Negative Negative KETONES (test code = 8149978987) Negative Negative PROTEIN (test code = 2887-8) Negative Negative UROBILIN (test code = 5757132790) Normal Normal BILIRUBIN (test code = 5930043462) Negative Negative NITRITE (test code = 5549741743) Negative Negative LEUK MARC (test code = 8590837367) Negative Negative RBC/HPF (test code = 5746003656) <1 See_Comment [Automated [employer]] The system which generated this result transmitted reference range: 0 - 3 HPF. The reference range was not used to interpret this result as normal/abnormal. WBC/HPF (test code = 1193391061) <1 See_Comment [Automated [employer]] The system which generated this result transmitted reference range: 0 - 5 HPF. The reference range was not used to interpret this result as normal/abnormal. BACTERIA (test code = 7585451865) Negative Negative MUCOUS (test code = 8632263835) Slight Negative LPF A SQ EPITH (test code = 2093898763) HPF Lab Interpretation (test code = 43021-4) Abnormal [facility] HospitalCOMP. METABOLIC PANEL (43607)2020-11-04 02:40:09* Test Item Value Reference Range Interpretation Comme nts NA (test code = 5593968158) 141 mmol/L 135-145 K (test code = 2135244467) 4.1 mmol/L 3.5-5.0 CL (test code = 3130528195) 110 mmol/L 98-108 H CO2 TOTAL (test code = 3737698151) 22 mmol/L 23-31 L AGAP (test code = 7858298291) 2-16 BUN (test code = 3955250497) 15 mg/dL 7-23 GLUCOSE (test code = 7737103161) 115 mg/dL 70-110 H CREATININE (test code = 8127683458) 0.69 mg/dL 0.50-1.04 TOTAL BILI (test code = 6730336012) 0.2 mg/dL 0.1-1.1 CALCIUM (test code = 2676746321) 9.2 mg/dL 8.6-10.6 T PROTEIN (test code = 7720647955) 6.8 g/dL 6.3-8.2 ALBUMIN (test code = 7194893997) 4.1 g/dL 3.5-5.0 ALK PHOS (test code = 6686025125) 69 U/L 34-122 ALTv (test code = 1742-6) 20 U/L 5-35 AST(SGOT) (test code = 3597900803) 23 U/L 13-40 eGFR (test code = 0536396133) mL/min/1.73m2 DARWIN (test code = DARWIN) Association [...] imaging tests). Lab Interpretation (test code = 02802-5) Abnormal [facility] HospitalLIPASE, NNJWZ9636-01-97 02:39:49* Test Item Value Reference Range Interpretation Comme nts LIPASE (test code = 1688631007) 117 U/L 0-220 Lab Interpretation (test cod e = 92067-5) Normal [facility] HospitalPROTHROMBIN TIME / [id number] 02:39:08* Test Item Value Reference Range Interpretation Comme nts PROTIME PATIENT (test code = 5964-2) See_Comment [Automated [employer]] The system which generated this result transmitted reference range: 12.0 - 14.7 Seconds. The reference range was not used to interpret this result as normal/abnormal. INR (test code = 6301-6) Normal INR <1.1; Warfarin Therapeutic range 2.0 to 3.0 or 2.5 to 3.5, depending upon the indications. Lab Interpretation (test code = 37485-4) Normal [facility] HospitalCBC WITH AOEJ7098-67-03 02:30:11* Test Item Value Reference Range Interpretation Comme nts WBC (test code = 6690-2) See_Comment H [Automated [employer]] The system which generated this result transmitted reference range: 4.30 - 11.10 10*3/?L. The reference range was not used to interpret this result as normal/abnormal. RBC (test code = 789-8) See_Comment [Automated [employer]] The system which generated this result [...] 32.8 g/dL 31.6-35.1 RDW-SD (test code = 39741-2) 44.1 fL 39.0-49.9 RDW-CV (test code = 788-0) 13.8 % 12.0-15.5 PLT (test code = 777-3) See_Comment [Automated [employer]] The system which generated this result transmitted reference range: 166 - 358 10*3/?L. The reference range was not used to interpret this result as normal/abnormal. MPV (test code = 93229-9) 9.6 fL 9.5-12.9 NRBC/100 WBC (test code = 8420438694) See_Comment [Automated [employer]] The system which generated this result transmitted reference range: 0.0 - 10.0 /100 WBCs. The reference range was not used to interpret this result as normal/abnormal. NRBC x10^3 (test code = 1253565798) <0.01 See_Comment [Automated [employer]] The system which generated this result transmitted reference range: 10*3/?L. The reference range was not used to interpret this result as normal/abnormal. GRAN MAT (NEUT) % (test code = 770-8) 65.9 % IMM GRAN % (test code = 7889227510) 0.70 % LYMPH % (test code = 736-9) 25.9 % MONO % (test code = 5905-5) 5.1 % EOS % (test code = 713-8) 2.0 % BASO % (test code = 706-2) 0.4 % GRAN MAT x10^3(ANC) (test code = 2795314746) 8.82 10*3/uL 1.88-7.09 H IMM GRAN x10^3 (test code = 0658422172) 0.09 10*3/uL 0.00-0.06 H LYMPH x10^3 (test code = 731-0) 3.46 10*3/uL 1.32-3.29 H MONO x10^3 (test code = 742-7) 0.68 10*3/uL 0.33-0.92 EOS x10^3 (test code = 711-2) 0.27 10*3/uL 0.03-0.39 BASO x10^3 (test code = 704-7) 0.05 10*3/uL 0.01-0.07 Lab Interpretation (test code = 62392-1) Abnormal [facility] HospitalCOVID-[facility] (ID NOW RAPID TESTING)2020-09-17 16:56:05* Test Item Value Reference Range Interpretation Comme nts SARS-CoV-2 Rapid ID NOW (test code = 81599-1) Not Detected Not Detected DARWIN (test code = DARWIN) ID NOW COVID-19 As say is an isothermal nucleic acid amplification test intended for the qualitative detection of nucleic acid from SARS-CoV-2 viral RNA in nasopharyngeal (BUGG[employer] LOADER) specimens. It is used under Emergency Use [...] clinically indicated. Lab Interpretation (test code = 07071-5) Normal [facility] HospitalRAPID STREP SCREEN FOR GROUP [id number] 16:54:09* Test Item Value Reference Range Interpretation Comme nts Streptococcus pyogenes (grou p A) antigen (test code = 04486-6) Negative Negative Lab Interpretation (test cod e = 93681-2) Normal [facility] HospitalXR [facility] 3+ VW KSHT9979-84-52 07:29:48 Impression: No acute fracture or dislocation. RL: 2824AFC: 14215 End of Report Exam: Left Hand, 09/07/2020 [...] swelling.IMPRESSIONImpression: No acute fracture or dislocation.RL: 2824AFC: 93825Isr of Report [facility] [place] [facility] VW [id number] 07:28:55No acute abnormality of the left forearm. RL: 6200AFC: [id number] Patient name: CHARITY JOHNSONGEDOB: 1980 40 years [...] acute abnormality of the left forearm.RL: 6200AF: 48294 [facility]ennial[facility]inalysis2021-02-21 09:06:00* Test Item Value Reference Range Interpretation Comme nts APPEARANCE (test code = 5430448560) Hazy Clear A COLOR (test code = 6926444824) Yellow Yellow PH (test code = 5219462231) 4.8-8.0 SP GRAVITY (test code = 1703615449) 1.003-1.030 GLU U QUAL (test code = 4830802004) Normal Normal BLOOD (test code = 5903539832) Negative Negative KETONES (test code = 0899006856) Negative Negative PROTEIN (test code = 2887-8) Negative Negative UROBILIN (test code = 2178489279) Normal Normal BILIRUBIN (test code = 6206615533) Negative Negative NITRITE (test code = 0503739982) Negative Negative LEUK MARC (test code = 0978952070) Negative Negative RBC/HPF (test code = 5670563926) See_Comment [Automated messa ge] The system which generated this result transmitted reference range: 0 - 3 HPF. The reference range was not used to interpret this result as normal/abnormal. WBC/HPF (test code = 1883139018) <1 See_Comment [Automated messa ge] The system which generated this result transmitted reference range: 0 - 5 HPF. The reference range was not used to interpret this result as normal/abnormal. BACTERIA (test code = 8323095530) Moderate Negative A SQ EPITH (test code = 6790687487) HPF Lab Interpretation (test code = 39185-0) [facility] Nrygkfnsvofi9282-42-93 08:50:00* Test Item Value Reference Range Interpretation [...] 34.0 g/dL 31.6-35.1 RDW-SD (test code = 34443-4) 42.6 fL 39-49.9 RDW-CV (test code = 788-0) 13.6 % 12-15.5 PLT (test code = 777-3) See_Comment H [Automated [employer]] The system which generated this result transmitted reference range: 166 - 358 10*3/?L. The reference range was not used to interpret this result as normal/abnormal. MPV (test code = 39089-3) 9.7 fL 9.5-12.9 NRBC/100 WBC (test code = 6540964776) See_Comment [Automated [employer] ssage] The system which generated this result transmitted reference range: 0.0 - 10.0 /100 WBCs. The reference range was not used to interpret this result as normal/abnormal. NRBC x10^3 (test code = 2407418253) <0.01 See_Comment [Automated [employer] ge] The system which generated this result transmitted reference range: 10*3/?L. The reference range was not used to interpret this result as normal/abnormal. GRAN MAT (NEUT) % (test code = 770-8) 49.7 % IMM GRAN % (test code = 2541452310) 0.50 % LYMPH % (test code = 736-9) 41.0 % MONO % (test code = 5905-5) 6.5 % EOS % (test code = 713-8) 1.9 % BASO % (test code = 706-2) 0.4 % GRAN MAT x10^3(ANC) (test code = 5327270912) 6.39 10*3/uL 1.88-7.09 IMM GRAN x10^3 (test code = 4363627872) 0.07 10*3/uL 0-0.06 H LYMPH x10^3 (test code = 731-0) 5.27 10*3/uL 1.32-3.29 H MONO x10^3 (test code = 742-7) 0.84 10*3/uL 0.33-0.92 EOS x10^3 (test code = 711-2) 0.24 10*3/uL 0.03-0.39 BASO x10^3 (test code = 704-7) 0.05 10*3/uL 0.01-0.07 Lab Interpretation (test code = 15623-7) [facility] [id number] 08:45:00* Test Item Value Reference Range Interpretation Comme nts POCT PREG (test code = 1605) neg On board controls acceptable with C Line (test code = 3574) yes POCT PREG LOT # (test code = 3575) [id number] POCT PREG TEST DATE ( test code = 3576) 04/06/2022 Lab Interpretation (test cod e = 68055-0) Normal [facility] Metabolic Vuxpz8379-97-09 08:30:00* Test Item Value Reference Range Interpretation Comme nts NA (test code = 0561180744) 137 mmol/L 135-145 K (test code = 2872976413) 3.3 mmol/L 3.5-5 L CL (test code = 3951825446) 102 mmol/L 98-108 CO2 TOTAL (test code = 3957398132) 24 mmol/L 23-31 AGAP (test code = 2416483829) 2-16 BUN (test code = 1232893826) 9 mg/dL 7-23 GLUCOSE (test code = 6328793734) 116 mg/dL 70-110 H CREATININE (test code = 7416513431) 0.48 mg/dL 0.5-1.04 L TOTAL BILI (test code = 7618600070) 0.3 mg/dL 0.1-1.1 CALCIUM (test code = 0282141352) 9.4 mg/dL 8.6-10.6 T PROTEIN (test code = 0641863734) 7.0 g/dL 6.3-8.2 ALBUMIN (test code = 1060648295) 4.3 g/dL 3.5-5 ALK PHOS (test code = 1024521739) 127 U/L 34-122 H ALTv (test code = 1742-6) 87 U/L 5-35 H AST(SGOT) (test code = 0772893834) 34 U/L 13-40 eGFR Calculation (Non-) (test code = 2381026284) mL/min/1.73m2 eGFR Calculation () (test code = 4792584926) mL/min/1.73m2 DARWIN (test code = DARWIN) Association [...] imaging tests). Lab Interpretation (test code = 03323-9) [facility]normal [facility] HospitalLipase, Emvpc6728-77-19 08:30:00* Test Item Value Reference Range Interpretation Comme nts LIPASE (test code = 5772126308) 297 U/L 0-220 H Lab Interpretation (test cod e = 83640-9) Abnormal [facility]URIN[facility]YSIS2021-02-07 19:25:00* Test Item Value Reference Range Interpretation Comme nts APPEARANCE (test code = 2570796572) Clear Clear COLOR (test code = 0811885957) Straw Yellow A PH (test code = 3755494463) 4.8-8.0 SP GRAVITY (test code = 7395105328) 1.003-1.030 GLU U QUAL (test code = 9194957350) Normal Normal BLOOD (test code = 1716278063) 1+ Negative A KETONES (test code = 7011374093) Negative Negative PROTEIN (test code = 2887-8) Negative Negative UROBILIN (test code = 8830597421) Normal Normal BILIRUBIN (test code = 7451626418) Negative Negative NITRITE (test code = 4262427955) Negative Negative LEUK MACR (test code = 3133134909) Negative Negative RBC/HPF (test code = 4485939655) See_Comment [Automated [employer]] The system which generated this result transmitted reference range: 0 - 3 HPF. The reference range was not used to interpret this result as normal/abnormal. WBC/HPF (test code = 0551953749) <1 See_Comment [Automated [employer]] The system which generated this result transmitted reference range: 0 - 5 HPF. The reference range was not used to interpret this result as normal/abnormal. BACTERIA (test code = 6104377440) Few Negative A MUCOUS (test code = 6534591639) Slight Negative LPF A SQ EPITH (test code = 8571966999) HPF Lab Interpretation (test code = 28286-8) Abnormal [facility] HospitalTROPONIN [id number] 19:09:00* Test Item Value Reference Range Interpretation Comme nts TROPONIN I (test code = 2998976396) <0.012 See_Comment [Automated message] The system which [...] biotin. ? Lab Interpretation (test code = 94832-4) Normal [facility] - DRUG SCREEN [id number] 19:09:00* Test Item Value Reference Range Interpretation Comme nts BENZO U (test code = 0351736567) Presumptive Positive Negative A ROSA U (test code = 3700802213) Negative Negative AMPHET (test code = 6156150968) Negative Negative THC (test code = 6326439445) Negative Negative METHADONE (test code = 3552196485) Negative Negative Meth U (test code = 5645936557) Negative Negative OPIATES (test code = 3896068934) Negative Negative Cocaine Metabolite (test code = 8410181932) Negative Negative PROPOXY (test code = 8194119246) Negative Negative Tric U (test code = 7423212454) Negative Negative PCP (test code = 9305006944) Negative Negative OXYCOD (test code = 4487092893) Negative Negative DARWIN (test code = DARWIN) [...] legal testing). Lab Interpretation (test code = 39589-5) Abnormal [facility] HospitalCOMP. METABOLIC PANEL (91285)2020-08-14 19:01:00* Test Item Value Reference Range Interpretation Comme nts NA (test code = 0255732639) 138 mmol/L 135-145 K (test code = 2940887707) 4.5 mmol/L 3.5-5 CL (test code = 1536690924) 106 mmol/L 98-108 CO2 TOTAL (test code = 2984255304) 21 mmol/L 23-31 L AGAP (test code = 9714398522) 2-16 BUN (test code = 4723390146) 13 mg/dL 7-23 GLUCOSE (test code = 0556311975) 97 mg/dL 70-110 CREATININE (test code = 4984798795) 0.48 mg/dL 0.5-1.04 L TOTAL BILI (test code = 7106750142) 0.4 mg/dL 0.1-1.1 CALCIUM (test code = 4137052347) 9.1 mg/dL 8.6-10.6 T PROTEIN (test code = 4092632740) 7.5 g/dL 6.3-8.2 ALBUMIN (test code = 0427872945) 4.3 g/dL 3.5-5 ALK PHOS (test code = 1822828319) 62 U/L 34-122 ALTv (test code = 1742-6) 19 U/L 5-35 AST(SGOT) (test code = 6184294826) 26 U/L 13-40 eGFR Calculation (Non-) (test code = 5914588865) mL/min/1.73m2 eGFR Calculation () (test code = 3391326429) mL/min/1.73m2 DARWIN (test code = DARWIN) Association [...] imaging tests). Lab Interpretation (test code = 23631-1) Abnormal [facility]LIPASE2021-[facility]-07 19:01:00* Test Item Value Reference Range Interpretation Comme nts LIPASE (test code = 3780727243) 76 U/L 0-220 Lab Interpretation (test cod e = 41599-5) Normal [facility] WITH ATVN4111-92-94 18:47:00* Test Item Value Reference Range Interpretation Comme nts WBC (test code = 6690-2) See_Comment H [Automated [employer]] The system which generated this result transmitted reference range: 4.30 - 11.10 10*3/?L. The reference range was not used to interpret this result as normal/abnormal. RBC (test code = 789-8) See_Comment [Automated [employer] ge] The system which generated this result [...] 34.3 g/dL 31.6-35.1 RDW-SD (test code = 75739-8) 42.0 fL 39-49.9 RDW-CV (test code = 788-0) 13.4 % 12-15.5 PLT (test code = 777-3) See_Comment [Automated [employer] ge] The system which generated this result transmitted reference range: 166 - 358 10*3/?L. The reference range was not used to interpret this result as normal/abnormal. MPV (test code = 23937-0) 9.9 fL 9.5-12.9 NRBC/100 WBC (test code = 5196396423) See_Comment [Automated [employer] ssage] The system which generated this result transmitted reference range: 0.0 - 10.0 /100 WBCs. The reference range was not used to interpret this result as normal/abnormal. NRBC x10^3 (test code = 9632749889) <0.01 See_Comment [Automated [employer] ge] The system which generated this result transmitted reference range: 10*3/?L. The reference range was not used to interpret this result as normal/abnormal. GRAN MAT (NEUT) % (test code = 770-8) 60.1 % IMM GRAN % (test code = 0051650111) 0.40 % LYMPH % (test code = 736-9) 31.3 % MONO % (test code = 5905-5) 6.0 % EOS % (test code = 713-8) 1.9 % BASO % (test code = 706-2) 0.3 % GRAN MAT x10^3(ANC) (test code = 8038676716) 6.96 10*3/uL 1.88-7.09 IMM GRAN x10^3 (test code = 8122088818) 0.05 10*3/uL 0-0.06 LYMPH x10^3 (test code = 731-0) 3.62 10*3/uL 1.32-3.29 H MONO x10^3 (test code = 742-7) 0.69 10*3/uL 0.33-0.92 EOS x10^3 (test code = 711-2) 0.22 10*3/uL 0.03-0.39 BASO x10^3 (test code = 704-7) 0.04 10*3/uL 0.01-0.07 Lab Interpretation (test code = 20342-8) [facility]normal [facility]ST 1 [id number] 18:17:08No acute cardiopulmonary abnormality. Preliminary Report Dictated [...] and soft tissues: No acute abnormality detected. [facility], Radiant Results Inft User - 08/14/2020 12:18 [...] with theabove report.[facility] HospitalLactic Acid Whole Vcsxz3572-01-14 18:11:00* Test Item Value Reference Range Interpretation Comme nts LACTIC ACID (test code = 8826001207) 1.95 mmol/L 0.5-2.2 Lab Interpretation (test cod e = 32094-3) Normal [facility] HospitalCT ABDOMEN PELVIS WO GRGATAGF7115-55-85 05:45:24No acute abdominopelvic abnormality. No urolithiasis. 2.5 [...] study and agree with the abovereport.[facility] HospitalPOMD JFRH4659-51-64 03:10:00* Test Item Value Reference Range Interpretation Comme nts POCT PREG (test code = 1605) Negative On board controls acceptable with C Line (test code = 3574) Present POCT PREG LOT # (test code = 3575) [id number] POCT PREG TEST DATE ( test code = 3576) 03/07/2022 Lab Interpretation (test cod e = 15277-5) Normal [facility] with Dbvmlevzbhru0975-53-79 03:05:00* Test Item Value Reference Range Interpretation [...] 34.7 g/dL 31.6-35.1 RDW-SD (test code = 13593-5) 42.0 fL 39-49.9 RDW-CV (test code = 788-0) 13.5 % 12-15.5 PLT (test code = 777-3) See_Comment [Automated message] The system which generated this result transmitted reference range: 166 - 358 10*3/?L. The reference range was not used to interpret this result as normal/abnormal. MPV (test code = 49507-8) 9.8 fL 9.5-12.9 NRBC/100 WBC (test code = 0863503927) See_Comment [Automated message] The system which generated this result transmitted reference range: 0.0 - 10.0 /100 WBCs. The reference range was not used to interpret this result as normal/abnormal. NRBC x10^3 (test code = 0636777749) <0.01 See_Comment [Automated message] The system which generated this result transmitted reference range: 10*3/?L. The reference range was not used to interpret this result as normal/abnormal. GRAN MAT (NEUT) % (test code = 770-8) 66.2 % IMM GRAN % (test code = 4539291899) 0.60 % LYMPH % (test code = 736-9) 25.4 % MONO % (test code = 5905-5) 5.6 % EOS % (test code = 713-8) 1.9 % BASO % (test code = 706-2) 0.3 % GRAN MAT x10^3(ANC) (test code = 3709557899) 10.64 10*3/uL 1.88-7.09 H IMM GRAN x10^3 (test code = 5845241583) 0.09 10*3/uL 0-0.06 H LYMPH x10^3 (test code = 731-0) 4.09 10*3/uL 1.32-3.29 H MONO x10^3 (test code = 742-7) 0.90 10*3/uL 0.33-0.92 EOS x10^3 (test code = 711-2) 0.31 10*3/uL 0.03-0.39 BASO x10^3 (test code = 704-7) 0.05 10*3/uL 0.01-0.07 Lab Interpretation (test code = 79564-9) Abnormal [facility] HospitalUrinalysis2021-02-04 02:56:00* Test Item Value Reference Range Interpretation Comme nts APPEARANCE (test code = 1153972610) Hazy Clear A COLOR (test code = 7837970748) Yellow Yellow PH (test code = 3179275856) 4.8-8.0 SP GRAVITY (test code = 5714366677) 1.003-1.030 GLU U QUAL (test code = 7209740192) Normal Normal BLOOD (test code = 6441304912) Negative Negative KETONES (test code = 5709787819) Negative Negative PROTEIN (test code = 2887-8) Negative Negative UROBILIN (test code = 5499046669) Normal Normal BILIRUBIN (test code = 3467462191) Negative Negative NITRITE (test code = 6619135851) Negative Negative LEUK MARC (test code = 1266487273) Negative Negative RBC/HPF (test code = 0764833206) See_Comment [Automated [employer]] The system which generated this result transmitted reference range: 0 - 3 HPF. The reference range was not used to interpret this result as normal/abnormal. WBC/HPF (test code = 5498554327) See_Comment [Automated [employer]] The system which generated this result transmitted reference range: 0 - 5 HPF. The reference range was not used to interpret this result as normal/abnormal. BACTERIA (test code = 5487830552) Few Negative A MUCOUS (test code = 7484957352) Slight Negative LPF A SQ EPITH (test code = 4598407980) HPF YEAST BUD (test code = 2083861842) See_Comment H [Automated messa ge] The system which generated this result transmitted reference range: <=1 HPF. The reference range was not used to interpret this result as normal/abnormal. Lab Interpretation (test code = 81814-7) [facility] [id number] 02:24:00* Test Item Value Reference Range Interpretation Comme nts TROPONIN I (test code = 5622671744) <0.012 See_Comment [Automated message] The system which [...] biotin. ? Lab Interpretation (test code = 10050-0) Normal [facility] HospitalCOVID-[facility] (ID NOW RAPID TESTING)2020-08-11 02:15:00* Test Item Value Reference Range Interpretation Comme nts SARS-CoV-2 Rapid ID NOW (test code = 49139-4) Not Detected Not Detected DARWIN (test code = DARWIN) ID NOW COVID-19 As say is an isothermal nucleic acid amplification test intended for the qualitative detection of nucleic acid from SARS-CoV-2 viral RNA in nasopharyngeal (BUGGY LOADER) specimens. It is used under Emergency Use [...] clinically indicated. Lab Interpretation (test code = 79213-6) Normal [facility] Metabolic Panel (NA, K, CL, CO2, GLUCOSE, BUN, CREATININE, CA)2020-08-11 02:13:00* Test Item Value Reference Range Interpretation Comme nts NA (test code = 6286599535) 137 mmol/L 135-145 K (test code = 6311524688) 4.0 mmol/L 3.5-5 CL (test code = 0910133143) 107 mmol/L 98-108 CO2 TOTAL (test code = 9384479890) 19 mmol/L 23-31 L AGAP (test code = 0697423505) 2-16 BUN (test code = 0648587218) 10 mg/dL 7-23 GLUCOSE (test code = 1087411349) 106 mg/dL 70-110 CREATININE (test code = 2041810912) 0.47 mg/dL 0.5-1.04 L CALCIUM (test code = 5541885663) 9.2 mg/dL 8.6-10.6 eGFR Calculation (Non-) (test code = 8364285241) mL/min/1.73m2 eGFR Calculation () (test code = 7663091447) mL/min/1.73m2 DARWIN (test code = DARWIN) Association [...] imaging tests). Lab Interpretation (test code = 91849-7) Abnormal [facility] HospitalHepatic Function Panel (ALB, T.PRO, BILI T, BU/BC, ALT, AST, ALK PHOS)2020-08-11 02:13:00* Test Item Value Reference Range Interpretation Comme nts TOTAL BILI (test code = 9241981911) 0.4 mg/dL 0.1-1.1 BILI UNCON (test code = 3808461756) 0.3 mg/dL 0.1-1.1 BILI CONJ (test code = 9492632553) 0.0 mg/dL 0-0.3 T PROTEIN (test code = 3117785073) 7.5 g/dL 6.3-8.2 ALBUMIN (test code = 9786951751) 4.4 g/dL 3.5-5 ALK PHOS (test code = 0270210078) 48 U/L 34-122 ALTv (test code = 1742-6) 12 U/L 5-35 AST(SGOT) (test code = 2327892177) 22 U/L 13-40 Lab Interpretation (test cod e = 16145-8) Normal [facility] HospitalLipase Sipew5883-09-61 02:13:00* Test Item Value Reference Range Interpretation Comme nts LIPASE (test code = 1495380346) 78 U/L 0-220 Lab Interpretation (test cod e = 52914-2) Normal [facility] HospitalLactic Acid Whole Kjwpl3392-64-07 02:05:00* Test Item Value Reference Range Interpretation Comme nts LACTIC ACID (test code = 6282359116) 1.47 mmol/L 0.5-2.2 Lab Interpretation (test cod e = 47790-6) Normal [facility]XR FOREARM 2 VW [id number] 14:31:40No acute bony abnormality. Soft tissue swelling. [...] swelling is present in the distal forearm. [facility], Radiant Results Inft User - 08/07/2020 8:32 [...] SARS-CoV-2 Rapid ID NOW (test code = 97284-1) Not Detected Not Detected DARWIN (test code = DARWIN) ID NOW COVID-19 As say is an isothermal nucleic acid amplification test intended for the qualitative detection of nucleic acid from SARS-CoV-2 viral RNA in nasopharyngeal (BUGGY LOADER) specimens. It is used under Emergency Use [...] clinically indicated. Lab Interpretation (test code = 41666-1) [facility] P6470-44-48 02:54:00* Test Item Value Reference Range Interpretation Comme nts TROPONIN I (test code = 2794543855) <0.012 See_Comment [Automated message] The system which [...] biotin. ? Lab Interpretation (test code = 36999-2) Normal [facility] HospitalLIPASE2020-12-25 02:37:00* Test Item Value Reference Range Interpretation Comme nts LIPASE (test code = 3658125120) 76 U/L 0-220 Lab Interpretation (test cod e = 61825-1) Normal [facility] HospitalURINALYSIS2020-12-25 01:54:00* Test Item Value Reference Range Interpretation Comme nts APPEARANCE (test code = 1581838002) Clear Clear COLOR (test code = 6840544894) Straw Yellow A PH (test code = 7512995286) 4.8-8.0 SP GRAVITY (test code = 6954376960) 1.003-1.030 GLU U QUAL (test code = 0456474565) Normal Normal BLOOD (test code = 3672103945) 3+ Negative A KETONES (test code = 4826650892) Negative Negative PROTEIN (test code = 2887-8) Negative Negative UROBILIN (test code = 5961576318) Normal Normal BILIRUBIN (test code = 1974525687) Negative Negative NITRITE (test code = 9082653576) Negative Negative LEUK MARC (test code = 0549972397) Negative Negative RBC/HPF (test code = 8707916322) See_Comment [[employer]ated [employer]] The system which generated this result transmitted reference range: 0 - 3 HPF. The reference range was not used to interpret this result as normal/abnormal. WBC/HPF (test code = 1018517819) <1 See_Comment [[employer]ated [employer]] The system which generated this result transmitted reference range: 0 - 5 HPF. The reference range was not used to interpret this result as normal/abnormal. BACTERIA (test code = 8044565369) Few Negative A MUCOUS (test code = 2827745254) Slight Negative LPF A SQ EPITH (test code = 6548505957) HPF Lab Interpretation (test code = 39939-1) Abnormal [facility]CB WITH ZGUT7480-95-39 00:57:00* Test Item Value Reference Range Interpretation Comme nts WBC (test code = 6690-2) See_Comment [[employer]ated [employer]] The system which generated this result [...] 34.0 g/dL 31.6-35.1 RDW-SD (test code = 58041-2) 41.7 fL 39-49.9 RDW-CV (test code = 788-0) 13.2 % 12-15.5 PLT (test code = 777-3) See_Comment [Automated messa ge] The system which generated this result transmitted reference range: 166 - 358 10*3/?L. The reference range was not used to interpret this result as normal/abnormal. MPV (test code = 98972-5) 9.4 fL 9.5-12.9 L NRBC/100 WBC (test code = 3985221961) See_Comment [Automated [employer]] The system which generated this result transmitted reference range: 0.0 - 10.0 /100 WBCs. The reference range was not used to interpret this result as normal/abnormal. NRBC x10^3 (test code = 2162378277) <0.01 See_Comment [Automated messa ge] The system which generated this result transmitted reference range: 10*3/?L. The reference range was not used to interpret this result as normal/abnormal. GRAN MAT (NEUT) % (test code = 770-8) 51.8 % IMM GRAN % (test code = 8945915362) 0.50 % LYMPH % (test code = 736-9) 40.7 % MONO % (test code = 5905-5) 4.0 % EOS % (test code = 713-8) 2.5 % BASO % (test code = 706-2) 0.5 % GRAN MAT x10^3(ANC) (test code = 0398096636) 5.38 10*3/uL 1.88-7.09 IMM GRAN x10^3 (test code = 7744756090) 0.05 10*3/uL 0-0.06 LYMPH x10^3 (test code = 731-0) 4.22 10*3/uL 1.32-3.29 H MONO x10^3 (test code = 742-7) 0.42 10*3/uL 0.33-0.92 EOS x10^3 (test code = 711-2) 0.26 10*3/uL 0.03-0.39 BASO x10^3 (test code = 704-7) 0.05 10*3/uL 0.01-0.07 Lab Interpretation (test code = 20458-2) Abnormal [facility] HospitalADC,CLC OR L[facility] ONLY - INFLUENZA A & B DIRECT PWSWPQI1894-68-69 00:51:00* Test Item Value Reference Range Interpretation Comme nts Influenza A (test code = 93839-8) Negative Negative Influenza B (test code = 54709-0) Negative Negative Lab Interpretation (test cod e = 21666-8) Normal [facility] HospitalPOCT RTIP1381-88-61 00:51:00* Test Item Value Reference Range Interpretation Comme nts POCT PREG (test code = 1605) negative On board controls acceptable with C Line (test code = 3574) present POCT PREG LOT # (test code = 3575) [id number] POCT PREG TEST DATE ( test code = 3576) 11/04/2021 Lab Interpretation (test cod e = 11437-1) Normal [facility] HospitalTROPONIN [id number] 00:46:00* Test Item Value Reference Range Interpretation Comme nts TROPONIN I (test code = 6986847210) <0.012 See_Comment [Automated message] The system which [...] biotin. ? Lab Interpretation (test code = 54052-1) Normal [facility] (NA, K, CL, CO2, GLUCOSE, BUN, CREATININE, CA)2020-07-01 00:46:00* Test Item Value Reference Range Interpretation Comme nts NA (test code = 3325242523) 141 mmol/L 135-145 K (test code = 2151565367) 3.8 mmol/L 3.5-5 CL (test code = 4197343131) 108 mmol/L 98-108 CO2 TOTAL (test code = 8389201509) 25 mmol/L 23-31 AGAP (test code = 2592047222) 2-16 BUN (test code = 5617459887) 10 mg/dL 7-23 GLUCOSE (test code = 1801297370) 92 mg/dL 70-110 CREATININE (test code = 3444745410) 0.58 mg/dL 0.5-1.04 CALCIUM (test code = 4629189366) 9.4 mg/dL 8.6-10.6 eGFR Calculation (Non-) (test code = 6869031639) mL/min/1.73m2 eGFR Calculation () (test code = 3127337160) mL/min/1.73m2 DARWIN (test code = DARWIN) Association [...] abnormalities in imaging tests). [facility] HospitalN-TERMINAL JCR-TRV0068-89-25 00:43:00* Test Item Value Reference Range Interpretation Comme nts NT-proBNP (test code = 2745459530) 332 pg/mL See_Comment H [Automated message] The system which generated this result transmitted reference range: <=125. The reference range was not used to interpret this result as normal/abnormal. DARWIN (test code = DARWIN) Biotin has been reported to cause a negative bias, interpret results relative to patient's use of biotin. Lab Interpretation (test code = 18367-8) Abnormal [facility] [id number] 00:20:50No acute cardiopulmonary abnormality Preliminary Report Dictated [...] this study and agree with the abovereport.[facility] CERVICAL SPINE WO [id number] 23:23:[address] EXAMINATION: CT [...] lung apices are unremarkable. IMPRESSIONUnremarkable cervical spine CT.[facility] Gfox9893-54-05 01:50:00* Test Item Value Reference Range Interpretation Comme nts POCT PREG (test code = 1605) Negative On board controls acceptable with C Line (test code = 3574) Present POCT PREG LOT # (test code = 3575) [id number] POCT PREG TEST DATE ( test code = 3576) 10/05/2021 Lab Interpretation (test cod e = 85138-3) Normal [facility] HospitalTroponin [id number] 01:24:00* Test Item Value Reference Range Interpretation Comme nts TROPONIN I (test code = 7994640942) <0.012 See_Comment [Automated message] The system which [...] biotin. ? Lab Interpretation (test code = 33177-1) Normal [facility] (ID NOW RAPID TESTING)2020-06-13 01:22:00* Test Item Value Reference Range Interpretation Comme nts SARS-CoV-2 Rapid ID NOW (test code = 71041-6) Not Detected Not Detected DARWIN (test code = DARWIN) ID NOW COVID-19 As say is an isothermal nucleic acid amplification test intended for the qualitative detection of nucleic acid from SARS-CoV-2 viral RNA in nasopharyngeal (BUGGY LOADER) specimens. It is used under Emergency Use [...] clinically indicated. Lab Interpretation (test code = 46283-6) Normal [facility] HospitalD-MEWHH8376-61-11 01:16:00* Test Item Value Reference Range Interpretation Comments D-DIMER (test code = 0262578743) See_Comment [Automated message] The system which generated [...] a diagnosis. Lab Interpretation (test code = 76733-2) Normal [facility] HospitalBasi Metabolic Panel (NA, K, CL, CO2, GLUCOSE, BUN, CREATININE, CA)2020-06-13 01:13:00* Test Item Value Reference Range Interpretation Comme nts NA (test code = 9531913977) 137 mmol/L 135-145 K (test code = 3819643067) 4.2 mmol/L 3.5-5 CL (test code = 2976093954) 103 mmol/L 98-108 CO2 TOTAL (test code = 5801512224) 25 mmol/L 23-31 AGAP (test code = 5319754459) 2-16 BUN (test code = 1377898747) 11 mg/dL 7-23 GLUCOSE (test code = 3951458933) 98 mg/dL 70-110 CREATININE (test code = 2198382602) 0.52 mg/dL 0.5-1.04 CALCIUM (test code = 7762863133) 10.3 mg/dL 8.6-10.6 eGFR Calculation (Non-) (test code = 5766521096) mL/min/1.73m2 eGFR Calculation () (test code = 8893281845) mL/min/1.73m2 DARWIN (test code = DARWIN) Association [...] Comme nts TOTAL BILI (test code = 6222288537) 0.5 mg/dL 0.1-1.1 BILI UNCON (test code = 9719944348) 0.3 mg/dL 0.1-1.1 BILI CONJ (test code = 1449982108) 0.0 mg/dL 0-0.3 T PROTEIN (test code = 7180026421) 7.3 g/dL 6.3-8.2 ALBUMIN (test code = 0583573020) 4.2 g/dL 3.5-5 ALK PHOS (test code = 8315677764) 85 U/L 34-122 ALTv (test code = 1742-6) 66 U/L 5-35 H AST(SGOT) (test code = 6015249591) 32 U/L 13-40 Lab Interpretation (test cod e = 83845-5) Abnormal [facility] HospitalLipase Uumkp2023-87-84 01:13:00* Test Item Value Reference Range Interpretation Comme nts LIPASE (test code = 7932288133) 60 U/L 0-220 Lab Interpretation (test cod e = 70886-2) Normal [facility] HospitalUrinalysis2020-12-07 01:03:00* Test Item Value Reference Range Interpretation Comme nts APPEARANCE (test code = 7980807303) Clear Clear COLOR (test code = 8927943822) Straw Yellow A PH (test code = 1832495402) 4.8-8.0 SP GRAVITY (test code = 9287020917) 1.003-1.030 GLU U QUAL (test code = 6442408480) Normal Normal BLOOD (test code = 1672734648) Negative Negative KETONES (test code = 8238854388) Negative Negative PROTEIN (test code = 2887-8) Negative Negative UROBILIN (test code = 9319873280) Normal Normal BILIRUBIN (test code = 1384033726) Negative Negative NITRITE (test code = 4295394155) Negative Negative LEUK MARC (test code = 1237427899) Negative Negative RBC/HPF (test code = 1446590756) See_Comment [Automated messa ge] The system which generated this result transmitted reference range: 0 - 3 HPF. The reference range was not used to interpret this result as normal/abnormal. WBC/HPF (test code = 8689413282) See_Comment [Automated messa ge] The system which generated this result transmitted reference range: 0 - 5 HPF. The reference range was not used to interpret this result as normal/abnormal. BACTERIA (test code = 9202439374) Negative Negative MUCOUS (test code = 6851882944) Slight Negative LPF A SQ EPITH (test code = 6418362976) HPF Lab Interpretation (test code = 74298-2) Abnormal [facility] with Nnbvkwuzjyvr9894-08-31 00:55:00* Test Item Value Reference Range Interpretation [...] 34.5 g/dL 31.6-35.1 RDW-SD (test code = 06287-6) 42.5 fL 39-49.9 RDW-CV (test code = 788-0) 13.5 % 12-15.5 PLT (test code = 777-3) See_Comment [Automated messa ge] The system which generated this result transmitted reference range: 166 - 358 10*3/?L. The reference range was not used to interpret this result as normal/abnormal. MPV (test code = 28922-5) 10.1 fL 9.5-12.9 NRBC/100 WBC (test code = 3672315263) See_Comment [Automated me ssage] The system which generated this result transmitted reference range: 0.0 - 10.0 /100 WBCs. The reference range was not used to interpret this result as normal/abnormal. NRBC x10^3 (test code = 1767794588) <0.01 See_Comment [Automated messa ge] The system which generated this result transmitted reference range: 10*3/?L. The reference range was not used to interpret this result as normal/abnormal. GRAN MAT (NEUT) % (test code = 770-8) 61.9 % IMM GRAN % (test code = 9528240194) 0.60 % LYMPH % (test code = 736-9) 30.6 % MONO % (test code = 5905-5) 5.2 % EOS % (test code = 713-8) 1.4 % BASO % (test code = 706-2) 0.3 % GRAN MAT x10^3(ANC) (test code = 2250734557) 8.03 10*3/uL 1.88-7.09 H IMM GRAN x10^3 (test code = 0483599117) 0.08 10*3/uL 0-0.06 H LYMPH x10^3 (test code = 731-0) 3.97 10*3/uL 1.32-3.29 H MONO x10^3 (test code = 742-7) 0.68 10*3/uL 0.33-0.92 EOS x10^3 (test code = 711-2) 0.18 10*3/uL 0.03-0.39 BASO x10^3 (test code = 704-7) 0.04 10*3/uL 0.01-0.07 Lab Interpretation (test code = 64127-8) Abnormal [facility] (ID NOW RAPID TESTING)2020-05-17 00:27:00* Test Item Value Reference Range Interpretation Comme nts SARS-CoV-2 Rapid ID NOW (test code = 06400-5) Not Detected Not Detected DARWIN (test code = DARWIN) ID NOW COVID-19 As say is an isothermal nucleic acid amplification test intended for the qualitative detection of nucleic acid from SARS-CoV-2 viral RNA in nasopharyngeal (BUGGY LOADER) specimens. It is used under Emergency Use [...] clinically indicated. Lab Interpretation (test code = 57537-1) Normal [facility] (NA, K, CL, CO2, GLUCOSE, BUN, CREATININE, CA)2020-05-17 00:00:00* Test Item Value Reference Range Interpretation Comme nts NA (test code = 9357326397) 136 mmol/L 135-145 K (test code = 0163396447) 3.6 mmol/L 3.5-5 CL (test code = 5725249854) 103 mmol/L 98-108 CO2 TOTAL (test code = 4087070728) 26 mmol/L 23-31 AGAP (test code = 8221978774) 2-16 BUN (test code = 2192941719) 13 mg/dL 7-23 GLUCOSE (test code = 7528308128) 130 mg/dL 70-110 H CREATININE (test code = 3815771100) 0.58 mg/dL 0.5-1.04 CALCIUM (test code = 3615320637) 9.9 mg/dL 8.6-10.6 eGFR Calculation (Non-) (test code = 4554396618) mL/min/1.73m2 eGFR Calculation () (test code = 3547892739) mL/min/1.73m2 DARWIN (test code = DARWIN) Association [...] imaging tests). Lab Interpretation (test code = 49994-0) Abnormal [facility] HospitalHepatic Function Panel (ALB, T.PRO, BILI T, BU/BC, ALT, AST, ALK PHOS)2020-05-17 00:00:00* Test Item Value Reference Range Interpretation Comme nts TOTAL BILI (test code = 0203938734) 0.4 mg/dL 0.1-1.1 BILI UNCON (test code = 4573185434) 0.3 mg/dL 0.1-1.1 BILI CONJ (test code = 3270458780) 0.0 mg/dL 0-0.3 T PROTEIN (test code = 9498350996) 7.3 g/dL 6.3-8.2 ALBUMIN (test code = 4217848417) 4.3 g/dL 3.5-5 ALK PHOS (test code = 4451256771) 118 U/L 34-122 ALTv (test code = 1742-6) 119 U/L 5-35 H AST(SGOT) (test code = 1389348271) 47 U/L 13-40 H Lab Interpretation (test cod e = 24720-9) Abnormal [facility] HospitalLipase Eprfw0265-77-53 00:00:00* Test Item Value Reference Range Interpretation Comme nts LIPASE (test code = 4234863521) 70 U/L 0-220 Lab Interpretation (test cod e = 37042-4) Normal [facility] HospitalCBC with Blclqeudjmzo4210-35-27 23:49:00* Test Item Value Reference Range Interpretation [...] 33.3 g/dL 31.6-35.1 RDW-SD (test code = 43893-9) 42.8 fL 39-49.9 RDW-CV (test code = 788-0) 13.5 % 12-15.5 PLT (test code = 777-3) See_Comment [Automated messa ge] The system which generated this result transmitted reference range: 166 - 358 10*3/?L. The reference range was not used to interpret this result as normal/abnormal. MPV (test code = 08910-7) 9.8 fL 9.5-12.9 NRBC/100 WBC (test code = 2277145840) See_Comment [Automated [employer] ssage] The system which generated this result transmitted reference range: 0.0 - 10.0 /100 WBCs. The reference range was not used to interpret this result as normal/abnormal. NRBC x10^3 (test code = 0392097042) <0.01 See_Comment [Automated me ssage] The system which generated this result transmitted reference range: 10*3/?L. The reference range was not used to interpret this result as normal/abnormal. GRAN MAT (NEUT) % (test code = 770-8) 62.5 % IMM GRAN % (test code = 3855283077) 0.50 % LYMPH % (test code = 736-9) 29.8 % MONO % (test code = 5905-5) 5.6 % EOS % (test code = 713-8) 1.1 % BASO % (test code = 706-2) 0.5 % GRAN MAT x10^3(ANC) (test code = 4854105855) 6.65 10*3/uL 1.88-7.09 IMM GRAN x10^3 (test code = 3680266748) 0.05 10*3/uL 0-0.06 LYMPH x10^3 (test code = 731-0) 3.17 10*3/uL 1.32-3.29 MONO x10^3 (test code = 742-7) 0.59 10*3/uL 0.33-0.92 EOS x10^3 (test code = 711-2) 0.12 10*3/uL 0.03-0.39 BASO x10^3 (test code = 704-7) 0.05 10*3/uL 0.01-0.07 [facility] HospitalACETAMINOPHEN2020-11-08 08:24:00* Test Item Value Reference Range Interpretation Comme nts ACETAMINOP (test code = 0158610858) 21.0 ug/mL 10-30 DARWIN (test code = DARWIN) Toxic: Greater joan n 200 ug/mL @ 4 hour post ingestion or greater than 50 ug/mL @ 12 hour post ingestion Lab Interpretation (test code = 30151-9) Normal [facility] HospitalETHANOL2020-11-08 06:37:00* Test Item Value Reference Range Interpretation Comme nts ALCOHOL (test code = 3436158535) <10 mg/dL DARWIN (test code = DARWIN) <10 Lxnashja33-513 Toxic>100 Depression of WIRE SAW OPERATOR>400 Fatalities Reported [facility]Basic Metabolic Panel (NA, K, CL, CO2, GLUCOSE, BUN, CREATININE, CA)2020-05-15 06:35:00* Test Item Value Reference Range Interpretation Comme nts NA (test code = 5552452445) 137 mmol/L 135-145 K (test code = 7364094634) 4.0 mmol/L 3.5-5 CL (test code = 2069597950) 106 mmol/L 98-108 CO2 TOTAL (test code = 3310374842) 25 mmol/L 23-31 AGAP (test code = 5136109853) 2-16 BUN (test code = 1030415453) 9 mg/dL 7-23 GLUCOSE (test code = 4207602801) 95 mg/dL 70-110 CREATININE (test code = 8097538233) 0.53 mg/dL 0.5-1.04 CALCIUM (test code = 2045909115) 9.0 mg/dL 8.6-10.6 eGFR Calculation (Non-) (test code = 5958296552) mL/min/1.73m2 eGFR Calculation () (test code = 0708004838) mL/min/1.73m2 DARWIN (test code = DARWIN) Association [...] Comme nts TOTAL BILI (test code = 5018120878) 0.4 mg/dL 0.1-1.1 BILI UNCON (test code = 5277496109) 0.2 mg/dL 0.1-1.1 BILI CONJ (test code = 3056738952) 0.0 mg/dL 0-0.3 T PROTEIN (test code = 2130939333) 6.3 g/dL 6.3-8.2 ALBUMIN (test code = 4099338236) 3.8 g/dL 3.5-5 ALK PHOS (test code = 0504138180) 117 U/L 34-122 ALTv (test code = 1742-6) 179 U/L 5-35 H AST(SGOT) (test code = 5953669606) 194 U/L 13-40 H Lab Interpretation (test cod e = 95624-9) Abnormal [facility] HospitalLipase Oaowd1667-00-53 06:35:00* Test Item Value Reference Range Interpretation Comme [facility] LIPASE (test code = 3988322790) 92 U/L 0-220 Lab Interpretation (test cod e = 68829-9) Normal [facility] HospitalaPTT2020-11-08 06:22:00* Test Item Value Reference Range Interpretation Comme nts APTT Patient (test code = 3173-2) See_Comment [Automated message] The system which generated this result transmitted reference range: 23 - 38 Seconds. The reference range was not used to interpret this result as normal/abnormal. DARWIN (test code = DARWIN) The [facility] patient population mean normal value for aPTT is 30 seconds. Lab Interpretation (test code = 81282-6) Normal [facility] HospitalUrinalysis2020-11-08 06:21:00* Test Item Value Reference Range Interpretation Comme nts APPEARANCE (test code = 3384658349) Clear Clear COLOR (test code = 5724228528) Yellow Yellow PH (test code = 5337380710) 4.8-8.0 SP GRAVITY (test code = 4299358643) 1.003-1.030 GLU U QUAL (test code = 0254019718) Normal Normal BLOOD (test code = 3264426079) Negative Negative KETONES (test code = 6346857976) Negative Negative PROTEIN (test code = 2887-8) Negative Negative UROBILIN (test code = 3606777815) Normal Normal BILIRUBIN (test code = 4584445488) Negative Negative NITRITE (test code = 7703861520) Negative Negative LEUK MARC (test code = 5099994365) Negative Negative RBC/HPF (test code = 8407127686) See_Comment [Automated [employer] ge] The system which generated this result transmitted reference range: 0 - 3 HPF. The reference range was not used to interpret this result as normal/abnormal. WBC/HPF (test code = 8379451562) <1 See_Comment [Automated [employer] ge] The system which generated this result transmitted reference range: 0 - 5 HPF. The reference range was not used to interpret this result as normal/abnormal. BACTERIA (test code = 1558044532) Negative Negative MUCOUS (test code = 8728607801) Slight Negative LPF A SQ EPITH (test code = 0908120639) HPF Lab Interpretation (test code = 58632-3) Abnormal [facility] HospitalProthrombin Time (PT) / [id number] 06:20:00 * Test Item Value Reference Range Interpretation Comme nts PROTIME PATIENT (test code = 5964-2) See_Comment [Automated [employer] ge] The system which generated this result transmitted reference range: 12.0 - 14.7 Seconds. The reference range was not used to interpret this result as normal/abnormal. INR (test code = 6301-6) Normal INR <1.1; Warfarin Therapeutic range 2.0 to 3.0 or 2.5 to 3.5, depending upon the indications. Lab Interpretation (test code = 76800-9) Normal [facility] HospitalADC / C - DRUG SCREEN WORMRB9553-28-28 06:19:00* Test Item Value Reference Range Interpretation Comme nts BENZO U (test code = 1263713307) Presumptive Positive Negative A ROSA U (test code = 8422900199) Negative Negative AMPHET (test code = 8144069180) Negative Negative THC (test code = 6018315103) Negative Negative METHADONE (test code = 5224179352) Negative Negative Meth U (test code = 7664826908) Negative Negative OPIATES (test code = 1936299790) Negative Negative Cocaine Metabolite (test code = 7931121053) Negative Negative PROPOXY (test code = 5562792152) Negative Negative Tric U (test code = 3798951503) Negative Negative PCP (test code = 1247425551) Negative Negative OXYCOD (test code = 9219228460) Negative Negative DARWIN (test code = DARWIN) [...] legal testing). Lab Interpretation (test code = 28575-3) Abnormal [facility] with Wbroozntrtgk6123-48-72 06:07:00* Test Item Value Reference Range Interpretation Comme nts WBC (test code = 6690-2) See_Comment [Automated [employer] ge] The system which generated this result transmitted reference range: 4.30 - 11.10 10*3/?L. The reference range was not used to interpret this result as normal/abnormal. RBC (test code = 789-8) See_Comment [Automated [employer] ge] The system which generated this result [...] 34.3 g/dL 31.6-35.1 RDW-SD (test code = 26466-7) 43.4 fL 39-49.9 RDW-CV (test code = 788-0) 13.7 % 12-15.5 PLT (test code = 777-3) See_Comment [Automated messa ge] The system which generated this result transmitted reference range: 166 - 358 10*3/?L. The reference range was not used to interpret this result as normal/abnormal. MPV (test code = 85202-8) 9.7 fL 9.5-12.9 NRBC/100 WBC (test code = 6720796120) See_Comment [Automated [employer] ssage] The system which generated this result transmitted reference range: 0.0 - 10.0 /100 WBCs. The reference range was not used to interpret this result as normal/abnormal. NRBC x10^3 (test code = 5385018196) <0.01 See_Comment [Automated messa ge] The system which generated this result transmitted reference range: 10*3/?L. The reference range was not used to interpret this result as normal/abnormal. GRAN MAT (NEUT) % (test code = 770-8) 50.6 % IMM GRAN % (test code = 8655732863) 0.20 % LYMPH % (test code = 736-9) 42.1 % MONO % (test code = 5905-5) 5.5 % EOS % (test code = 713-8) 1.2 % BASO % (test code = 706-2) 0.4 % GRAN MAT x10^3(ANC) (test code = 0319338606) 4.31 10*3/uL 1.88-7.09 IMM GRAN x10^3 (test code = 7117805476) <0.03 0-0.06 LYMPH x10^3 (test code = 731-0) 3.58 10*3/uL 1.32-3.29 H MONO x10^3 (test code = 742-7) 0.47 10*3/uL 0.33-0.92 EOS x10^3 (test code = 711-2) 0.10 10*3/uL 0.03-0.39 BASO x10^3 (test code = 704-7) 0.03 10*3/uL 0.01-0.07 Lab Interpretation (test code = 30421-9) Abnormal [facility] HospitalPOCT Kugc0794-72-64 05:53:00* Test Item Value Reference Range Interpretation Comme nts POCT PREG (test code = 1605) Negative On board controls acceptable with C Line (test code = 3574) Present POCT PREG LOT # (test code = 3575) HCG [id number] POCT PREG TEST DATE ( test code = 3576) 10/05/2021 Lab Interpretation (test cod e = 02180-6) Normal [facility] History and Physical [...] at 02/15/23 2247, 1,000 mL at 02/15/23 224 morpHINE (2 [...] the ACR Incidental Findings Committee;Journal of the [employer] Volume 7, Issue 10, Pages [phone], April 2010). CHEST 1 VW Result Date: [...] process is identified in the chest. RL: [id number] END OF REPORT Assessment and plan: Principal [...] Flako Mercado MD 02/16/2023 IM-INTERNAL MEDICINE STAFF [facility]
== END 2024-06-12 21:58 | disposition home or self-care (01) ==
LOC: ER 18:53
DX: T82.848A Pain due to vascular prosthetic devices, implants and grafts, initial encounter (principal); I25.2 Old myocardial infarction; Z95.818 Presence of other cardiac implants and grafts
CPT/HCPCS: 85025; 80048; 36415; 85610; 84484; 73206; 96375; 96374; 99285; Q9967; J2405

== ENCOUNTER 2024-07-17 22:57 | Emergency (ER) | payer OTHER ==
--- OUTSIDE RECORDS SUMMARY | 2024-07-17 23:12 | XMS REPORT | Continuity of Care Document ---
Author Name Unknown Address [address] [facility] [address] [place] [address] [facility] thconnect Address [address] [facility] [place] [address] Support Name Relationship Address Phone RACHEL CASH Father Unknown Unavailable PHYSICIAN, NO Primary Care Physician Unknown Unav ailable MD MORA POLLOCK Emergency Provider [address] [place] [address] JAN COX natural parent [address] [address] MD SHERIDAN MCMANUS Emergency Provider [facility], [place] [address] CHARITY ROCA Guarantor [address] [place] [address] MD RIDDHI [place] [address] MD AN IRIZARRY Emergency Provider [facility], [place] [address] MD CARLOS SOLANO A Primary Care Physician [address] [facility] 3 [place] [address] OTHER, ENTER NAME IN NOTES Primary Care Physician Unknown Unavailable MD Arelis Kern Emergency Provider [address] [place] [address] MD SHAN BUSCH Attending Provider [address] [place] [address] PIYUSH JUAREZ parent [address] [place] [address] MD TAVARES MG JR, JR. Emergency Provider [address] [place] [address] Leyda Villa Mother Unknown Unavailable Rachel Cox Father [address] [place] [address] one else per patient, No Emergency Contact Unknown Unavailable Rachel Cox Father [address] [place] [address] 1 Personal Relationship Unknown Unavai lable Unavailable Personal Relationship Unknown Unavai lable Rachel Cox [address] [place] [address] PATIENT, NO ONE ELSE PER Personal Relationship Unknown Unavailable Care Team Providers Care Cardiovascular Tech Name Role Phone OTHER, ENTER NAME IN NOTES Primary Care Physicia n Unavailable JOANNE MONTES Attending Clinician Unavailable RADIOLOGY, DEPT Attending Clinician Unavailable MD BEHZAD Attending Clinician Unavailab GISELLE Brink Attending Clinician Unavailable SANDY GARCIA Attending Clinician Unavailable SANDY GARCIA Attending Clinician Unavailable Sandy Walker Attending Clinician [phone] OLIVIA GARCIA Attending Clinician Unavailable OLIVIA GARCIA Attending Clinician Unavailable Olivia Garcia MD Attending Clinician [phone] ANNALISE WRIGHT Attending Clinician Unavailable Annalise Wright PA-C Attending Clinician [phone] Attending Clinician Unavailable Alesha Roy MD Attending Clinician + ARELIS KERN Attending Clinician Unavailab Saleem Weston Attending Clinician [phone] FARTUN GILLESPIE Attending Clinician Unavailable TAVARES MG JR Attending Clinician Ari Rojo NP, Leigh Attending Clinician [phone] COSMO Attending Clinician Unavailable SHERIDAN MCMANUS Attending Clinician UnavailROBERTO Melgar Attending Clinician Unavailable Roberto Richards MD Attending Clinician + SHAN BUSCH Attending Clinician Unavailable RIDDHI MYLES Attending Clinician UnavailAN Garcia Attending Clinician Unavailable NARAYAN NARVAEZ Attending Clinician Unavailable Narayan Narvaez DO Attending Clinician + Saleem EDWARD Attending Clinician Unavailable Wagner PACSaleem Attending Clinician [phone] BRITTNI PADGETT S Attending Clinician Unavailable Brittni Elam S Attending Clinician [phone] JESÚS MONTERO Attending Clinician Unavailable Leeanne Wise NP Attending Clinician + Jesús Montero MD Attending Clinician + FELTON Attending Clinician Unavailable MELIDA LONGORIA Attending Clinician Unavailable Melida Longoria MD Attending Clinician + WIL MCQUEEN Attending Clinician Unavailable Wil Joseph Attending Clinician + IBIKUNRAJ MOROCHOO F Attending Clinician Unavaila ble [employer]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, Folusho F Attending Clinician +07-11 Doctor Unassigned, [place] Attending Clinician U shannanailable CEM CHOI Attending Clinician Unavailable Cem Choi MD Attending Clinician [phone] Shelley Rosas RN Attending Clinician + [phone] Bal Cuevas Attending Clinician + BAL HASSAN Attending Clinician Unavailable Tremaine Jon Attending Clinician [phone] TREMAINE BECERRA Attending Clinician Unavailable LEEANNE WISE Attending Clinician Unavailable MORA POLLOCK Attending Clinician Unavailable Best Rodríguez Attending Clinician [phone] BEST TAYLOR Attending Clinician Unavailable Marbella Rizo RN Attending Clinician Unavailab Abdias Vuong Attending Clinician + ABDIAS ROBERTSON Attending Clinician Unavailable Kamryn Sheppard RN Attending Clinician Unavail able Bushra Rios DO Attending Clinician BUSHRA RIOS Attending Clinician Unavailab SINCERE morocho [...] Unavail able HUGO COFFMAN Attending Clinician Unavailable SANDY GARCIA Admitting Clinician Unavailable OLIVIA GARCIA Admitting Clinician Unavailable ANNALISE WRIGHT Admitting Clinician Unavailable OLIVIA GARCIA Admitting Clinician Unavailable ROBERTO RICHARDS Admitting Clinician Unavailable SHAN BUSCH Admitting Clinician Unavailable RIDDHI MYLES Admitting Clinician UnaNARAYAN Suárez Admitting Clinician Unavailable JESÚS MONTERO Admitting Clinician Unavailable Jesús Montero MD Admitting Clinician [phone] FELTON Admitting Clinician Unavailable MELIDA LONGORIA Admitting [...] Date Source RAMSES TAYLOR SILVER 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 9 [id number] 2023 00:00:00 RAMSES MCADAMS [id number] 2023 00:00:00 [employer]OMI [employer] O [id number] 2020 00:00:00 Problems Condition Name Condition Details Condition Category Status Onset Date Resolution Date Last Treatment Date Treating Clinician Comments Source Generalize d abdominal pain Generalize d abdominal pain Disease Active 2023-07 0- 00:00: 00 [facility] Coronary artery disease Coronary artery disease [...] level Disease Active 2020-07 0- 00:00: 00 [facility] Cigarette smoker Cigarette smoker Disease Active 2020-07 0- 00:00: 00 [facility] Family history of early CAD Family history of early CAD Disease Active 2020-07 0-02 00:00: 00 [facility] Primary hypertensi on Primary hypertensi on Disease Active 2020-07 0-02 00:00: 00 [facility] Elevated brain natriureti c peptide (BNP) level Elevated brain natriureti c peptide (BNP) level Disease Active 2020-07 0-02 00:00: 00 [facility] Snores Snores Disease Active 2020-07 0-02 00:00: 00 [facility] Morbid obesity with body mass index of 40.0-49.9 Morbid obesity with body mass index of 40.0-49.9 Disease Active 2020-07 0- 00:00: 00 [facility] Abdominal [facility] Acute coronary syndrome without high troponin [facility] Ad[facility]al [facility] Ad[facility] nodule [facility] Encounter for counseling regarding advance directives Problem [facility] Allergic rhinitis [facility] Angina pectoris [facility] Anxiety and depression Problem [facility] Chest pain [facility] Gastroente ritis [facility] Malaise [facility] Otitis externa of left ear Problem [facility] Cyst of ovary Problem [facility] Post traumatic stress disorder (PTSD) Problem [facility] Tobacco abuse Problem [facility] Urinary tract infection [facility] No known active problems No known active problems Disease [facility] Allergies, Adverse Reactions, Alerts Allergy Name Allergy Type Status Severity Reaction(s) Onset Date Inactive Date Treating Clinician Comments Source NO KNOWN ALLERGIE S Drug Class Active [facility] Social History Social Habit Start Date Stop Date Quantity Comments Source History of tobacco use [facility] Gender identity [facility] Sexual orientation [...] - Reported 2023-10-28 00:00:00 2023-10-28 00:00:00 Kellee Buckley - External Cigarette pack-years 2023-10-28 00:00:00 2023-10-28 00:00:00 Kellee Buckley - External Sex 2023-07-17 22:17:29 2023-07-17 22:17:29 Female (finding) Kellee Buckley - External Tobacco Comment 2023-02-15 00:00:00 2023-02-15 00:00:00 In the process of quitting. Now smokes 5 cigarettes/ day from 2 packs per day [facility] Tobacco use and exposure 2023-02-15 00:00:00 2023-02-15 00:00:00 User of smokeless tobacco [facility] Exposure to SARS-CoV-2 (event) 2021-12-30 00:00:00 2022-01-09 16:34:00 Unable to assess [facility] Education 2021-04-07 00:00:00 2021-04-07 00:00:00 13 [facility] Sex assigned at 1980 00:00:00 1980 00:00:00 Kellee Buckley - External Smoking Status Start Date Stop Date Source Smokes tobacco daily 2023-02-15 00:00:00 [facility] Unknown if ever smoked Unive [facility] Medications Ordered Medication Name Filled Medication Name Start Date Stop Date Current Medication? Ordering Clinician Indication Dosage Frequency Signature (SIG) Comments Components Source iopamidol (ISOVUE 370-500 mL) injection 100 mL 2023-07 06:45: 00 07-04 06:45 :00 No [id number] 100mL 100 mL, Intravenou s, ONCE, 1 dose, On 07/04/24 at 0045, Routine [facility] morpHINE (4 mg/mL) injection 4 mg 2023-07 06:30: 00 07-04 06:29 :00 No 4mg 4 mg, Slow IV Push, ONCE, 1 dose, On 07/04/24 at 0030, ROSELYN [facility] proMETHazin e (PHENERGAN) 12.5 mg in NS 50 mL IV piggyback (CNR) 2023-07 05:15: 00 07-04 05:30 :00 No 12.5mg 12.5 mg, IV Piggyback, at 200 mL/hr Administer over 15 Minutes, ONCE, 1 dose, On 12/27/24 at 2315, ROSELYN [facility] morpHINE (4 mg/mL) injection 4 mg 2023-07 03:30: 00 07-04 03:49 :00 No 4mg 4 mg, Slow IV Push, ONCE, 1 dose, On Sat07/03/24 at 2130, STAT [facility] ondansetron (ZOFRAN (PF)) injection 4 mg 2023-07 03:30: 00 07-04 03:50 :00 No 4mg 4 mg, Slow IV Push, ONCE, 1 dose, On Sat07/03/24 at 2130, Administer over 2-5 Minutes, 2 mL [facility] NaCl 0.9% (NS) IV infusion 1,000 mL 2023-07 03:18: 00 07-04 04:56 :00 No 1000mL at 999 mL/hr, Intravenou s, ONCE, 1 dose, On Sat07/03/24 at 2130, ROSELYN [facility] sodium chloride (NS) injection 5 mL 2023-07 02:16: 03 Yes 5mL 5 mL, Intravenou s, PRN, Starting on Sat07/03/24 at 2016, Until Discontinu ed, Routine, IV line flushing [facility] benzonatate 100 mg capsule 2023-07 00:00: 00 Yes [id number] 100mg Take 1 capsule by mouth 3 (three) times daily as needed for Cough. [facility] proMETHazin e 25 mg tablet 2023-07 00:00: 00 Yes [id number] 25mg Take 1 tablet by mouth every 6 (six) hours as needed for Nausea and Vomiting (N/V). [facility] cephALEXin (KEFLEX) capsule 500 mg 2023-07 08:45: 00 06-21 08:53 :00 No 500mg 500 mg, Oral, ONCE, 1 dose, On Sat06/21/24 at 0245, ROSELYN, Reason for Anti-Infec tive: Documented Infection, Documented Infection Site: Skin / Soft Tissue, Duration of Therapy: Once (ED) [facility] doxycycline hyclate (Vibramycin ) capsule 100 mg 2023-07 08:45: 00 06-21 08:53 :00 No 100mg 100 mg, Oral, ONCE, 1 dose, On Sat06/21/24 at 0245, ROSELYN, Reason for Anti-Infec tive: Documented Infection, Documented Infection Site: Skin / Soft Tissue, Duration of Therapy: Once (ED) [facility] doxycycline hyclate 100 mg capsule 2023-07 00:00: 00 06-29 05:59 :00 Yes [id number] 100mg Take 1 capsule by mouth in the morning and 1 capsule in the evening. Do all this for 7 days. [facility] cephALEXin 500 mg capsule 2023-07 00:00: 00 06-29 05:59 :00 Yes [id number] 500mg Take 1 capsule by mouth 4 (four) times daily for 7 days. [facility] iopamidol (ISOVUE 370-500 mL) injection 100 mL 2023-07 06:30: 00 06-15 06:30 :00 Yes [id number] 100mL 100 mL, Intravenou s, ONCE, 1 dose, On Sat06/15/24 at 0030, Routine [facility] morpHINE (4 mg/mL) injection 4 mg 2023-07 06:00: 00 06-15 05:57 :00 No 4mg 4 mg, Slow IV Push, ONCE, 1 dose, On Sat06/15/24 at 0000, STAT [facility] proMETHazin e (PHENERGAN) 12.5 mg in NS 50 mL IV piggyback (CNR) 2023-07 05:15: 00 06-15 05:56 :00 No 12.5mg 12.5 mg, IV Piggyback, at 200 mL/hr Administer over 15 Minutes, ONCE, 1 dose, On 06/14/24 at 2315, ROSELYN [facility] NaCl 0.9% (NS) IV infusion 1,000 mL 2023-07 04:30: 00 06-15 05:28 :00 No 1000mL at 999 mL/hr, Intravenou s, ONCE, 1 dose, On 06/14/24 at 2230, Routine [facility] fentanyl PF (SUBLIMAZE (PF)) injection 50 mcg 2023-07 04:00: 00 06-15 04:23 :00 No 50ug 50 mcg, Slow IV Push, ONCE, 1 dose, On 06/14/24 at 2200, Routine [facility] famotidine (PEPCID (PF)) injection 20 mg 2023-07 03:30: 00 06-15 04:18 :00 No 20mg 20 mg, Slow IV Push, ONCE, 1 dose, On 06/14/24 at 2130, ROSELYN [facility] ondansetron (ZOFRAN (PF)) injection 4 mg 2023-07 03:30: 00 06-15 04:20 :00 No 4mg 4 mg, Slow IV Push, ONCE, 1 dose, On 06/14/24 at 2130, Administer over 2-5 Minutes, 2 mL [facility] proMETHazin e 25 mg tablet 2023-07 00:00: 00 Yes [id number] 25mg Take 1 tablet by mouth every 6 (six) hours as needed for Nausea and Vomiting (N/V). [facility] morpHINE (4 mg/mL) injection 4 mg 2023-07 08:15: 00 06-07 08:11 :00 No 4mg 4 mg, Slow IV Push, ONCE, 1 dose, On 06/07/24 at 0215, STAT [facility] ondansetron (ZOFRAN (PF)) injection 4 mg 2023-07 05:15: 00 06-07 05:23 :00 No 4mg 4 mg, Slow IV Push, ONCE, 1 dose, On 06/06/24 at 2315, Administer over 2-5 Minutes, 2 mL [facility] morpHINE (4 mg/mL) injection 4 mg 2023-07 05:15: 00 06-07 05:21 :00 No 4mg 4 mg, Slow IV Push, ONCE, 1 dose, On 06/06/24 at 2315, STAT [facility] nitroglycer in (NITROSTAT) sublingual tablet 0.4 mg 2023-07 05:08: 35 Yes .4mg 0.4 mg, Sublingual , Q5MIN PRN, 3 doses, Starting on Sat06/06/24 at 2308, Until Discontinu ed, ROSELYN, Chest pain [facility] hydrOXYzine Pamoate 50 MG oral Capsule 2023-07 13:02: 35 Yes [id number] 50mg Q.5D Take 1 capsule (50 mg total) by mouth 2 times daily as needed for anxiety. Kellee pinedo Vitamin D, Ergocalcife rol, 1.25 MG (31468 UT) oral Capsule 2023-07 00:00: 00 Yes [id number] 43782W Q1W Take 1 capsule (50,000 units total) by mouth once a week. Kellee pinedo ondansetron (ZOFRAN-ODT ) disintegrat ing tablet 4 mg 2023-07 20:15: 00 05-19 19:27 :00 No 4mg 4 mg, Oral, ONCE, 1 dose, On Sat05/19/24 at 1415, Routine [facility] HYDROcodone -acetaminop hen (NORCO 5) tablet 1 tablet 2023-07 18:00: 00 05-19 19:27 :00 No 1{tbl} 1 tablet, Oral, ONCE, 1 dose, On Sat05/19/24 at 1200, ROSELYN [facility] ondansetron 4 mg disintegrat ing tablet 2023-07 00:00: 00 Yes [id number] 4mg Take 1 tablet by mouth every 8 (eight) hours as needed for Nausea and Vomiting (N/V). [facility] hydrOXYzine Pamoate 50 MG oral Capsule 2023-07 10:26: 29 Yes [id number] 50mg Q.5D Take 1 capsule (50 mg total) by mouth 2 times daily as needed for anxiety. Kellee pinedo ondansetron (ZOFRAN (PF)) injection 4 mg 2023-07 03:45: 00 05-18 03:42 :00 No 4mg 4 mg, Slow IV Push, ONCE, 1 dose, On 05/17/24 at 2145, [facility] morpHINE (4 mg/mL) injection 4 mg 2023-07 03:45: 00 05-18 03:42 :00 No 4mg 4 mg, Slow IV Push, ONCE, 1 dose, On 05/17/24 at 2145, [facility] ondansetron (ZOFRAN (PF)) injection 4 mg 2023-07 01:00: 00 05-18 01:21 :00 No 4mg 4 mg, Slow IV Push, ONCE, 1 dose, On 05/17/24 at 1900, [facility] fentanyl PF (SUBLIMAZE (PF)) injection 50 mcg 2023-07 01:00: 00 05-18 01:21 :00 No 50ug 50 mcg, Slow IV Push, ONCE, 1 dose, On 05/17/24 at 1900, [facility] Methocarbam ol 750 MG oral Tablet 2023-07 00:00: 00 Yes [id number] 750mg Q.25D Take 1 tablet (750 mg total) by mouth 4 times daily. Kellee pinedo Suvorexant (Belsomra) 20 MG oral Tablet 2023-07 00:00: 00 Yes [id number] 1{tbl} QD Take 1 tablet by mouth nightly. Kellee pinedo Acetaminoph en-Codeine 300-30 MG oral Tablet 2023-07 00:00: 00 Yes [id number] Kellee pinedo Lorazepam (ATIVAN) 0.5 MG oral Tablet tablet 2023-07 00:00: 00 Yes [id number] .5mg Q.5D Take 1 tablet (0.5 mg total) by mouth 2 times daily as needed for anxiety. Kellee pinedo Sertraline HCl 50 MG oral Tablet 2023-07 00:00: 00 Yes [id number] 50mg QD Take 1 tablet (50 mg total) by mouth daily Take in addition to 100 mg tablet for a total dose of 150 mg daily. Kellee pinedo Sertraline HCl 100 MG oral Tablet 2023-07 00:00: 00 Yes [id number] 100mg Take 1 tablet (100 mg total) by mouth every morning Take in addition to 50 mg tablet for a total dose of 150 mg daily. Kellee pinedo Isosorbide Mononitrate CR 30 MG oral TABLET SR 24 HR 2023-07 00:00: 00 Yes [id number] TAKE THREE TABLETS BY MOUTH ONCE DAILY (90MG DAILY) Kellee pinedo ondansetron (ZOFRAN (PF)) injection 4 mg 2023-07 01:30: 00 05-08 00:31 :00 No 4mg 4 mg, Slow IV Push, ONCE, 1 dose, On [place] 05/07/24 at 2030, ROSELYN [facility] morpHINE (4 mg/mL) injection 4 mg 2023-07 01:30: 00 05-08 01:20 :00 No 4mg 4 mg, Slow IV Push, ONCE, 1 dose, On [place] 05/07/24 at 2030, STAT [facility] ketorolac (TORADOL) injection 15 mg 2023-07 01:30: 00 05-08 00:30 :00 No 15mg 15 mg, Slow IV Push, ONCE, 1 dose, On [place] 05/07/24 at 2030, ROSELYN [facility] phenazopyri dine 200 mg tablet 2023-07 00:00: 00 Yes [id number] 200mg Take 1 tablet by mouth in the morning and 1 tablet at noon and 1 tablet in the evening. [facility] Rosuvastati n Calcium 20 MG oral Tablet 2023-07 00:00: 00 Yes 20mg QD Take 1 tablet (20 mg total) by mouth daily. Kellee pinedo Metoprolol Succinate 25 MG oral TABLET SR 24 HR 2023-07 00:00: 00 Yes [id number] 25mg QD Take 1 tablet (25 mg total) by mouth daily. Kellee Marcio pinedo Dicyclomine HCl 20 MG oral Tablet 2023-07 00:00: 00 Yes TAKE 1 TABLET BY MOUTH FOUR TIMES A DAY NEEDED FOR PAIN Kellee Marcio pinedo Ondansetron (ZOFRAN) 4 MG oral TABLET DISPERSIBLE 2023-07 00:00: 00 Yes 4mg Q.[id number] 3D Take 1 tablet (4 mg total) by mouth 3 times daily. Kellee Marcio pinedo Belsomra 20 MG oral Tablet 2023-07 00:00: 00 05-18 00:00 :00 No [id number] 1{tbl} QD take 1 tablet by mouth every day at night Kellee pinedo Nitrofurant oin (Macrobid *) 100 Mg CAP Nitrofurant oin (Macrobid *) 100 Mg CAP 2023-07 0 18:32: 00 Yes 100 [facility] Ondansetron Hcl (Zofran *) 4 Mg Tablet Disint Ondansetron Hcl (Zofran *) 4 Mg Tablet Disint 2023-07 0 18:32: 00 Yes 1 [facility] cefTRIAXone (ROCEPHIN) 1,000 mg in NaCl 0.9% (NS) 100 mL MINI-BAG 2023-07 0 01:15: 00 04-09 01:24 :00 No 1000mg 1,000 mg, IV Piggyback, ONCE, 1 dose, On Sat04/08/24 at 2015, Administer over 30 Minutes, 100 mL, Reason for Anti-Infec tive: Documented Infection, Documented Infection Site: Urine, Duration of Therapy: Once (ED) [facility] fentanyl PF (SUBLIMAZE (PF)) injection 25 mcg 2023-07 0 00:15: 00 04-09 00:18 :00 No 25ug 25 mcg, Slow IV Push, ONCE, 1 dose, On Sat04/08/24 at 1915, STAT [facility] NaCl 0.9% (NS) bolus infusion 1,000 mL 2023-07 002 23:45: 00 04-09 01:24 :00 No 1000mL at 999 mL/hr, 1,000 mL, IV Infusion, ONCE, 1 dose, On Sat04/08/24 at 1845, [facility] ondansetron (ZOFRAN (PF)) injection 4 mg 2023-07 23:00: 00 04-08 22:57 :00 No 4mg 4 mg, Slow IV Push, ONCE, 1 dose, On Sat04/08/24 at 1800, [facility] ketorolac (TORADOL) injection 30 mg 2023-07 23:00: 00 04-08 22:57 :00 No 30mg 30 mg, Slow IV Push, ONCE, 1 dose, On Sat04/08/24 at 1800, [facility] sodium chloride (NS) injection 5 mL 2023-07 22:33: 00 Yes 5mL 5 mL, Intravenou s, PRN, Starting on Sat04/08/24 at 1733, Until Discontinu ed, Routine, IV line flushing [facility] ciprofloxac in HCl 500 mg tablet 2023-07 00:00: 00 Yes [id number] 500mg Take 1 tablet by mouth in the morning and 1 tablet in the evening. [facility] Promethazin e HCl (PHENERGAN) 25 MG oral Tablet 03-14 00:00: 00 Yes 25mg Q.[id number] 3D Take 1 tablet (25 mg total) by mouth every 8 hours as needed for nausea. Kellee pinedo Clopidogrel Bisulfate (PLAVIX) 75 MG oral Tablet 02-09 00:00: 00 Yes [id number] 75mg QD take 1 tablet by mouth every day Kellee pinedo Aspirin Low Dose 81 MG oral Tablet Delayed Response 02-09 00:00: 00 Yes [id number] 81mg QD take 1 tablet by mouth every day Kellee pinedo Methylpredn isolone Acetate (Depo-Medro l) 40 mg/ml - Physician Administere d ([id number]) 02-05 13:21: 25 No [id number] 9104 40mg 40 mg, Physician Administer ed, ONCE, 1 dose, On [place] 02/06/24 at 1145 Kellee pinedo hydrOXYzine Pamoate 50 MG oral Capsule 02-05 11:06: 49 Yes [id number] 50mg Q.5D Take 1 capsule (50 mg total) by mouth 2 times daily as needed for anxiety. Kellee pinedo Isosorbide Mononitrate CR 60 MG oral TABLET SR 24 HR 02-04 00:00: 00 Yes Kellee pinedo Lorazepam (ATIVAN) 0.5 MG oral Tablet tablet 01-09 00:00: 00 Yes [id number] .5mg Q.5D take 1 tablet by mouth 2 times daily as needed for anxiety Kellee pinedo Aspirin (Aspirin Low Dose) 81 MG oral Tablet Delayed Response 01-05 00:00: 00 Yes [id number] 81mg QD Take 1 tablet (81 mg total) by mouth daily. Kellee pinedo Atorvastati n Calcium 40 MG oral Tablet 01-05 00:00: 00 Yes [id number] 40mg QD Take 1 tablet (40 mg total) by mouth daily. Kellee pinedo Suvorexant (Belsomra) 20 MG oral Tablet 01-05 00:00: 00 Yes [id number] 1{tbl} QD Take 1 tablet by mouth nightly. Kellee pinedo Clopidogrel Bisulfate (PLAVIX) 75 MG oral Tablet 01-05 00:00: 00 Yes [id number] 75mg QD Take 1 tablet (75 mg [...] MG oral Capsule 12-12 09:19: 23 Yes [id number] 50mg Q.5D Take 1 capsule (50 mg total) by mouth 2 times daily as needed for anxiety. Kellee pinedo Lorazepam (ATIVAN) 0.5 MG oral Tablet tablet 12-12 00:00: 00 Yes [id number] .5mg Q.5D Take 1 tablet (0.5 mg total) by mouth 2 times daily as needed for anxiety. Kellee pinedo Aspirin Low Dose 81 MG oral Tablet Delayed Response 12-05 00:00: 00 Yes [id number] 81mg Take 1 tablet (81 mg total) by mouth daily. Kellee pinedo Atorvastati n Calcium 40 MG oral Tablet 12-05 00:00: 00 Yes [id number] 40mg Take 1 tablet (40 mg total) by mouth daily. Kellee pinedo Clopidogrel Bisulfate (PLAVIX) 75 MG oral Tablet 12-05 00:00: 00 Yes [id number] 75mg Take 1 tablet (75 mg total) by mouth daily. Kellee pinedo Mometasone Furo-Formot camelia Fum (Dulera) 200-5 MCG/ACT inhalation Aerosol 12-05 00:00: 00 05-18 00:00 :00 No TWICE DAILY Kellee pinedo Vitamin D, Ergocalcife rol, 1.25 MG (05664 UT) oral Capsule 12-04 00:00: 00 Yes [id number] 18426L Q1W Take 1 capsule (50,000 units total) by mouth once a week. Kellee pinedo Ferrous Sulfate 325 (65 Fe) MG oral Tablet 12-04 00:00: 00 Yes [id number] 325mg QD Take 1 tablet (325 mg total) by mouth daily (with breakfast) . Kellee pinedo Mirtazapine 45 MG oral Tablet 12-02 10:49: 07 12-02 00:00 :00 No [id number] 45mg Take 1 tablet (45 mg total) by mouth nightly. Kellee pinedo hydrOXYzine Pamoate 50 MG oral Capsule 12-02 10:49: 04 Yes [id number] 50mg Q.5D Take 1 capsule (50 mg total) by mouth 2 times daily as needed for anxiety. Kellee pinedo Ascorbic Acid 500 MG oral Tablet 12-02 10:48: 55 12-02 00:00 :00 No 50mg Take 50 mg by mouth. Kellee pinedo Suvorexant (Belsomra) 20 MG oral Tablet 12-02 00:00: 00 Yes [id number] 1{tbl} Take 1 tablet by mouth nightly. Kellee pinedo Lorazepam 1 MG oral Tablet 12-02 00:00: 00 12-12 00:00 :00 No [id number] 1mg Q.5D Take 1 tablet (1 mg total) by mouth 2 times daily as needed for anxiety. Kellee pinedo Doxepin HCl 3 MG oral Tablet 11-27 00:00: 00 05-18 00:00 :00 No [id number] 1{tbl} QD TAKE 1 TABLET BY MOUTH EVERY DAY AT NIGHT Kellee pinedo Aripiprazol e 5 MG oral Tablet 11-27 00:00: 00 05-18 00:00 :00 No [id number] 5mg QD TAKE 1 TABLET (5 MG TOTAL) BY MOUTH DAILY. Kellee pinedo Mirtazapine 45 MG oral Tablet 10-28 13:20: 59 Yes [id number] 45mg Take 1 tablet (45 mg total) by mouth nightly. Kellee pinedo Ascorbic Acid 500 MG oral Tablet 10-28 13:20: 47 Yes 50mg Take 50 mg by mouth. Kellee pinedo hydrOXYzine Pamoate 50 MG oral Capsule 10-28 13:20: 47 10-28 00:00 :00 No [id number] 50mg Q.5D Take 1 capsule (50 mg total) by mouth every 4 to 6 hours as needed. Kellee pinedo Sertraline HCl 150 MG oral Capsule 10-28 13:20: 03 10-28 00:00 :00 No 150mg Take 150 mg by mouth daily. Kellee pinedo Doxepin HCl 3 MG oral Tablet 10-28 00:00: 00 Yes [id number] 1{tbl} Take 1 tablet by mouth nightly. Kellee pinedo Aripiprazol e 5 MG oral Tablet 10-28 00:00: 00 Yes [id number] 5mg Take 1 tablet (5 mg total) by mouth daily. Kellee pinedo Suvorexant 10 MG oral Tablet 10-28 00:00: 00 12-02 00:00 :00 No [id number] 1{tbl} Take 1 tablet by mouth nightly. Kellee pinedo Sertraline HCl 50 MG oral Tablet 10-26 00:00: 00 Yes [id number] Kellee pinedo HYDROcodone -acetaminop hen (NORCO) 10-325 mg tablet 1 tablet 10-10 06:15: 00 10-10 05:25 :00 No 1{tbl} 1 tablet, Oral, ONCE NOW, 1 dose, On Sat10/11/23 at 0115, [facility] iopamidol (ISOVUE 370-500 mL) injection 100 mL 10-10 05:00: 00 10-10 05:00 :00 No [id number] 100mL 100 mL, Intravenou s, ONCE, 1 dose, On Sat10/11/23 at 0000, Routine [facility] ketorolac (TORADOL) injection 30 mg 10-10 04:30: 00 10-10 03:29 :00 No 30mg 30 mg, Slow IV Push, ONCE, 1 dose, On [place] 10/10/23 at 2330, Routine [facility] NaCl 0.9% (NS) IV infusion 1,000 mL 10-10 04:15: 00 10-10 05:18 :00 No 1000mL at 999 mL/hr, Intravenou s, ONCE, 1 dose, On [place] 10/10/23 at 2315, Routine [facility] ondansetron (ZOFRAN (PF)) injection 4 mg 10-10 04:00: 00 10-10 03:54 :00 No 4mg 4 mg, Slow IV Push, ONCE, 1 dose, On [place] 10/10/23 at 2300, [facility] morpHINE (4 mg/mL) injection 4 mg 10-10 04:00: 00 10-10 03:54 :00 No 4mg 4 mg, Slow IV Push, ONCE, 1 dose, On [place] 10/10/23 at 2300, STAT [facility] traMADoL (ULTRAM) 50 mg tablet 10-10 00:00: 00 Yes [id number] 50mg Take 1 tablet by mouth every 6 (six) hours as needed for Pain (scale 7-10). Indication s: acute pain [facility] ondansetron (ZOFRAN) 4 mg tablet 10-10 00:00: 00 Yes [id number] 4mg Take 1 tablet by mouth every 8 (eight) hours as needed for Nausea and Vomiting (N/V). [facility] ketorolac 10 mg tablet 10-10 00:00: 00 Yes [id number] 10mg Take 1 tablet by mouth every 6 (six) hours as needed for Pain (scale 7-10). [facility] phenazopyri dine 200 mg tablet 10-10 00:00: 00 Yes [id number] 200mg Take 1 tablet by mouth in the morning and 1 tablet at noon and 1 tablet in the evening. [facility] Sertraline HCl 100 MG oral Tablet 10-09 00:00: 00 Yes [id number] 100mg Take 1 tablet (100 mg total) by mouth every morning. Kellee pinedo acetaminoph en (TYLENOL) tablet 975 mg 2022-07 04:15: 00 07-02 03:11 :00 No 975mg 975 mg, Oral, ONCE, 1 dose, On Sat07/01/23 at 2215, [facility] dicyclomine (BENTYL) tablet 20 mg 2022-07 03:15: 00 07-02 03:11 :00 No 20mg 20 mg, Oral, ONCE, 1 dose, On Sat07/01/23 at 2115, [facility] ketorolac (TORADOL) injection 30 mg 2022-07 03:15: 00 07-02 02:32 :00 No 30mg 30 mg, Slow IV Push, ONCE, 1 dose, On Sat07/01/23 at 2115, Routine [facility] ondansetron (ZOFRAN (PF)) injection 4 mg 2022-07 03:00: 00 07-02 02:03 :00 No 4mg 4 mg, Slow IV Push, ONCE, 1 dose, On Sat07/01/23 at 2100, [facility] NaCl 0.9% (NS) bolus infusion 1,000 mL 2022-07 03:00: 00 07-02 04:10 :00 No 1000mL at 999 mL/hr, 1,000 mL, IV Infusion, ONCE, 1 dose, On Sat07/01/23 at 2100, STAT [facility] dicyclomine 20 mg tablet 2022-07 00:00: 00 Yes [id number] 20mg Take 1 tablet by mouth 4 (four) times daily. [facility] ondansetron 4 mg disintegrat ing tablet 2022-07 00:00: 00 Yes [id number] 4mg Take 1 tablet by mouth every 4 (four) hours as needed for Nausea and Vomiting (N/V). [facility] Alprazolam (Alprazolam *) 1 Mg TAB Alprazolam (Alprazolam *) 1 Mg TAB 2022-07 12:08: 00 06-14 00:00 :00 No 1 [facility] Trazodone Hcl (Desyrel 100 Mg*) 100 Mg TAB Trazodone Hcl (Desyrel 100 Mg*) 100 Mg TAB 2022-07 12:07: 00 06-06 12:08 :00 No 1 [facility] Aspirin (Aspirin Ec) 81 Mg Tablet Aspirin (Aspirin Ec) 81 Mg Tablet 2022-07 11:55: 00 07-07 00:00 :00 No 81 [facility] Alprazolam (Xanax 2 Mg*) 2 Mg TAB Alprazolam (Xanax 2 Mg*) 2 Mg TAB 2022-07 11:09: 40 06-06 12:08 :00 No 2 [facility] Trazodone Hcl (Desyrel 300 Mg*) 300 Mg TAB Trazodone Hcl (Desyrel 300 Mg*) 300 Mg TAB 2022-07 11:09: 39 05-13 15:45 :00 No 300 [facility] Alprazolam 1 MG oral Tablet 2022-07 00:00: 00 12-12 00:00 :00 No [id number] 2mg Take 2 tablets (2 mg total) by mouth 2 times daily. Kellee pinedo Pantoprazol e * (Protonix Ec *) 20 Mg Tablet Pantoprazol e * (Protonix Ec *) 20 Mg Tablet 2022-07 15:44: 00 06-05 00:28 :00 No 20 [facility] Sucralfate (Carafate *) 1 Gm TAB Sucralfate (Carafate *) 1 Gm TAB 2022-07 15:44: 00 06-05 00:28 :00 No 1 [facility] Ciprofloxac in Hcl (Cipro *) 500 Mg TAB Ciprofloxac in Hcl (Cipro *) 500 Mg TAB 2022-07 15:44: 00 05-16 00:00 :00 No 500 [facility] Pantoprazol e Sodium 20 MG oral Tablet Delayed Response 2022-07 00:00: 00 12-02 00:00 :00 No Take by mouth. Kellee Buckley - Shobha pinedo ketorolac (TORADOL) injection 15 mg 2022-07 01:00: 00 05-10 00:09 :00 No 15mg 15 mg, Slow IV Push, ONCE, 1 dose, On Sat05/09/23 at 2000, [facility] proCHLORper azine (COMPAZINE) injection 5 mg 2022-07 23:30: 00 05-09 22:48 :00 No 5mg 5 mg, Slow IV Push, ONCE, 1 dose, On Sat05/09/23 at 1830, [facility] diphenhydrA MINE (BENADRYL) injection 25 mg 2022-07 22:45: 00 05-09 22:48 :00 No 25mg 25 mg, Slow IV Push, ONCE, 1 dose, On Sat05/09/23 at 1745, STAT [facility] HYDROcodone -acetaminop hen (NORCO) 10-325 mg tablet 1 tablet 2022-07 02:00: 00 05-01 01:04 :00 No 1{tbl} 1 tablet, Oral, ONCE, 1 dose, On Sat04/30/23 at 2100, Routine [facility] iopamidol (ISOVUE 370-500 mL) injection 100 mL 2022-07 00:45: 00 05-01 00:45 :00 No [id number] 100mL 100 mL, Intravenou s, ONCE, 1 dose, On Sat04/30/23 at 1945, Routine [facility] NaCl 0.9% (NS) bolus infusion 1,000 mL 2022-07 00:00: 00 05-01 00:45 :00 No 1000mL at 999 mL/hr, 1,000 mL, IV Piggyback, ONCE, 1 dose, On Sat04/30/23 at 1900, STAT [facility] proCHLORper azine (COMPAZINE) injection 5 mg 2022-07 23:45: 00 04-30 23:09 :00 No 5mg 5 mg, Slow IV Push, ONCE, 1 dose, On Sat04/30/23 at 1845, [facility] diphenhydrA MINE (BENADRYL) injection 25 mg 2022-07 23:00: 00 04-30 23:09 :00 No 25mg 25 mg, Slow IV Push, ONCE, 1 dose, On Sat04/30/23 at 1800, STAT [facility] dicyclomine 20 mg tablet 2022-07 00:00: 00 07-01 00:00 :00 No [id number] 20mg Take 1 tablet by mouth 4 (four) times daily. [facility] acetaminoph en (TYLENOL) tablet 1,000 mg 2022-07 02:45: 00 04-17 02:43 :00 No 1000mg 1,000 mg, Oral, ONCE, 1 dose, On Sat04/16/23 at 2145, [facility] ondansetron (ZOFRAN (PF)) injection 4 mg 2022-07 0 03:15: 00 04-09 02:13 :00 No 4mg 4 mg, Slow IV Push, ONCE, 1 dose, On Sat04/08/23 at 2215, [facility] dicyclomine (BENTYL) tablet 20 mg 2022-07 0 03:15: 00 04-09 02:16 :00 No 20mg 20 mg, Oral, ONCE, 1 dose, On Sat04/08/23 at 2215, Routine [facility] ondansetron (ZOFRAN (PF)) injection 4 mg 2022-07 0 23:45: 00 04-08 23:16 :00 No 4mg 4 mg, Slow IV Push, ONCE, 1 dose, On Sat04/08/23 at 1845, [facility] morpHINE (2 mg/mL) injection 4 mg 2022-07 0 23:45: 00 04-08 23:45 :00 No 4mg 4 mg, Slow IV Push, ONCE, 1 dose, On 04/08/23 at 1845, STAT [facility] ondansetron 4 mg disintegrat ing tablet 2022-07 0 00:00: 00 07-01 00:00 :00 No [id number] 4mg Take 1 tablet by mouth every 8 (eight) hours as needed for Nausea and Vomiting (N/V). [facility] dicyclomine 20 mg tablet 2022-07 0 00:00: 00 04-30 00:00 :00 No [id number] 20mg Take 1 tablet by mouth 4 (four) times daily. [facility] acetaminoph en (TYLENOL) tablet 1,000 mg 03-10 04:30: 00 03-10 04:29 :00 No 1000mg 1,000 mg, Oral, ONCE, 1 dose, On 03/09/23 at 2330, [facility] iopamidol (ISOVUE 370-500 mL) injection 85 mL 03-10 04:30: 00 03-10 04:30 :00 No [id number] 85mL 85 mL, Intravenou s, ONCE, 1 dose, On 03/09/23 at 2330, Routine [facility] FENTanyl PF (SUBLIMAZE (PF)) injection 75 mcg 03-10 04:00: 00 03-10 02:58 :00 No 75ug 75 mcg, Slow IV Push, ONCE, 1 dose, On 03/09/23 at 2300, STAT [facility] NaCl 0.9% (NS) IV infusion 1,000 mL 03-10 03:00: 00 Yes 1000mL at 20 mL/hr, IV Infusion, CONTINUOUS , Starting on 03/09/23 at 2200, Until Discontinu ed, Routine [facility] ondansetron (ZOFRAN (PF)) injection 4 mg 03-10 02:00: 00 03-10 02:01 :00 No 4mg 4 mg, Slow IV Push, ONCE, 1 dose, On 03/09/23 at 2100, [facility] morpHINE (4 mg/mL) injection 4 mg 03-10 02:00: 00 03-10 02:01 :00 No 4mg 4 mg, Slow IV Push, ONCE, 1 dose, On 03/09/23 at 2100, STAT [facility] polyethylen e glycol 3350 (MIRALAX) 17 gram powder 03-09 00:00: 00 Yes [id number] 1{packe t} Take 1 Packet by mouth once daily as needed for Constipati on. [facility] Simethicone 125 mg 03-09 00:00: 00 Yes [id number] 125mg Take 1 capsule by mouth after meals and at bedtime as needed for Gas. [facility] iopamidol (ISOVUE 370-500 mL) injection 100 mL 03-02 06:15: 00 03-02 06:15 :00 No [id number] 100mL 100 mL, Intravenou s, ONCE, 1 dose, On 03/02/23 at 0115, Routine [facility] NaCl 0.9% (NS) IV infusion 1,000 mL 03-02 05:15: 00 Yes 1000mL at 999 mL/hr, Intravenou s, CONTINUOUS , Starting on 03/02/23 at 0015, Until Discontinu ed, Routine [facility] ketorolac (TORADOL) injection 30 mg 03-02 05:15: 00 03-02 04:20 :00 No 30mg 30 mg, Slow IV Push, ONCE, 1 dose, On 03/02/23 at 0015, Routine [facility] ondansetron (ZOFRAN (PF)) injection 4 mg 03-02 05:00: 00 03-02 05:24 :00 No 4mg 4 mg, Slow IV Push, ONCE, 1 dose, On 03/02/23 at 0000, [facility] morpHINE (4 mg/mL) injection 4 mg 03-02 05:00: 00 03-02 05:24 :00 No 4mg 4 mg, Slow IV Push, ONCE, 1 dose, On Sat03/02/23 at 0000, [facility] ondansetron (ZOFRAN (PF)) injection 4 mg 03-02 04:15: 00 03-02 04:21 :00 No 4mg 4 mg, Slow IV Push, ONCE, 1 dose, On Sat03/01/23 at 2315, [facility] Ondansetron HCl 4 MG oral Tablet 03-02 00:00: 00 05-18 00:00 :00 No [id number] 4mg Q.[id number] 3D Take 1 tablet (4 mg total) by mouth every 8 hours as needed. Kellee pinedo dicyclomine 20 mg tablet 03-02 00:00: 00 04-30 00:00 :00 No [id number] 20mg Take 1 tablet by mouth every 6 (six) hours as needed for Abdominal pain. [facility] metoclopram tracy HCl (REGLAN) injection 10 mg 02-18 06:45: 00 02-18 06:43 :00 No 10mg 10 mg, Slow IV Push, ONCE, 1 dose, On Sat02/18/23 at 0145, [facility] morpHINE (4 mg/mL) injection 4 mg 02-18 05:30: 00 02-18 05:28 :00 No 4mg 4 mg, Slow IV Push, ONCE, 1 dose, On Sat02/18/23 at 0030, [facility] ondansetron (ZOFRAN (PF)) injection 4 mg 02-18 05:30: 00 02-18 05:28 :00 No 4mg 4 mg, Slow IV Push, ONCE, 1 dose, On Sat02/18/23 at 0030, [facility] NaCl 0.9% (NS) bolus infusion 1,000 mL 02-18 05:30: 00 02-18 05:15 :00 No 1000mL at 999 mL/hr, 1,000 mL, IV Infusion, ONCE, 1 dose, On 02/18/23 at 0030, STAT [facility] proMETHazin e (PHENERGAN) 25 mg in NaCl 0.9% (NS) 50 mL IV piggyback 02-18 04:30: 00 02-18 04:28 :00 No 25mg 25 mg, IV Piggyback, ONCE, 1 dose, On 02/17/23 at 2330, [facility] proMETHazin e 25 mg tablet 02-18 00:00: 00 Yes [id number] 25mg Take 1 tablet by mouth every 6 (six) hours as needed for Nausea and Vomiting (N/V). [facility] escitalopra m oxalate (LEXAPRO) 5 mg tablet 02-17 16:23: 24 Yes 10mg Take 2 tablets by mouth at bedtime. [facility] topiramate (TOPAMAX) 200 mg tablet 02-17 16:23: 24 Yes 200mg Take 1 tablet by mouth every evening. [facility] bupropion HCl (WELLBUTRIN ORAL) 02-17 16:23: 24 Yes 150mg Take 150 mg by mouth every morning. [facility] OLANZapine (ZYPREXA) 15 mg tablet 02-17 16:23: 24 Yes 15mg Take 1 tablet by mouth every evening. [facility] ALPRAZOLAM ORAL 02-17 16:23: 24 Yes 2mg Take 2 mg by mouth in the morning and 2 mg in the evening. [facility] melatonin 10 mg Tab 02-17 16:23: 24 Yes 1{tbl} Take 1 tablet by mouth at bedtime. [facility] trazodone HCl (TRAZODONE ORAL) 02-17 16:23: 24 Yes 400mg Take 400 mg by mouth at bedtime. [facility] lactated ringers IV infusion 1,000 mL 02-17 02:15: 00 02-17 22:14 :00 No 1000mL at 100 mL/hr, 1,000 mL, IV Infusion, CONTINUOUS , Starting on 02/16/23 at 2115, Until 02/17/23 at 1714, Routine [facility] traZODone (DESYREL) tablet 400 mg 02-17 02:00: 00 Yes 400mg 400 mg, Oral, QHS, First dose on 02/16/23 at 2100, Until Discontinu ed [facility] melatonin (MELATIN) tablet 9 mg 02-17 02:00: 00 Yes 9mg 9 mg, Oral, QHS, First dose on 02/16/23 at 2100, Until Discontinu ed [facility] morpHINE (2 mg/mL) injection 2 mg 02-17 01:07: 50 03-01 01:06 :50 No 2mg 2 mg, Slow IV Push, Q4HPRN, Starting on 02/16/23 at 2006, Until [place] 02/28/23 at 2005, Routine, Pain (scale 7-10) [facility] OLANZapine (ZyPREXA) tablet 15 mg 02-16 22:00: 00 Yes 15mg 15 mg, Oral, QPM, First dose on 02/16/23 at 1700, Until Discontinu ed, Routine [facility] buPROPion XL (WELLBUTRIN XL) tablet 150 mg 02-16 14:00: 00 Yes 150mg 150 mg, Oral, DAILY, [facility], Until Discontinu ed [facility] enoxaparin (LOVENOX) injection 40 mg 02-16 14:00: 00 Yes 40mg 40 mg, Subcutaneo us, DAILY, First dose on 02/16/23 at 0900, Until Discontinu ed, Routine [facility] methocarbam oL (ROBAXIN) tablet 500 mg 02-16 06:04: 59 Yes 500mg 500 mg, Oral, Q6HPRN, Starting on 02/16/23 at 0104, Until Discontinu ed, Routine, Muscle Spasms [facility] ALPRAZolam (XANAX) tablet 2 mg 02-16 06:03: 54 Yes 2mg 2 mg, Oral, TIDPRN, Starting on 02/16/23 at 0103, Until Discontinu ed, Anxiety [facility] lactated ringers IV infusion 1,000 mL 02-16 03:15: 00 02-16 23:14 :00 No 1000mL at 100 mL/hr, 1,000 mL, IV Infusion, CONTINUOUS , Starting on Sat02/15/23 at 2215, Until 02/16/23 at 1814, Routine [facility] morpHINE (2 mg/mL) injection 2 mg 02-16 03:07: 02 02-17 01:08 :14 No 2mg 2 mg, Slow IV Push, Q4HPRN, Starting on Sat02/15/23 at 2207, Until 02/16/23 at 2008, Routine, Pain (scale 7-10) [facility] traMADoL (ULTRAM) tablet 50 mg 02-16 03:06: 59 02-18 03:05 :59 No 50mg 50 mg, Oral, Q8HPRN, Starting on Sat02/15/23 at 2206, Until Sat02/17/23 at 2205, Routine, Pain (scale 4-6) [facility] acetaminoph en (TYLENOL) tablet 1,000 mg 02-16 03:06: 50 Yes 1000mg 1,000 mg, Oral, Q6HPRN, Starting on Sat02/15/23 at 2206, Until Discontinu ed, Routine, Pain (scale 1-3), Temp > 38 C [facility] ALPRAZolam (XANAX) 1 mg tablet 02-16 01:09: 19 02-15 00:00 :00 No 1mg Take 1 tablet by mouth in the morning and 1 tablet in the evening. [facility] iopamidol (ISOVUE 370-500 mL) injection 80 mL 02-16 00:30: 00 02-16 00:30 :00 No [id number] 80mL 80 mL, Intravenou s, ONCE, 1 dose, On Sat02/15/23 at 1930, Routine [facility] lactated ringers IV infusion 1,000 mL 02-16 00:00: 00 02-16 03:07 :30 No [id number] 1000mL at 500 mL/hr, 1,000 mL, IV Infusion, CONTINUOUS , Starting on Sat02/15/23 at 1900, Until Sat02/15/23 at 2207, [facility] FENTanyl PF (SUBLIMAZE (PF)) injection 75 mcg 02-15 23:45: 00 02-15 23:13 :00 No [id number] 75ug 75 mcg, Slow IV Push, ONCE, 1 dose, On Sat02/15/23 at 1845, Routine [facility] dicyclomine (BENTYL) injection 20 mg 02-15 22:15: 00 02-15 21:46 :00 No [id number] 20mg 20 mg, Intramuscu lar, ONCE NOW, 1 dose, On Sat02/15/23 at 1715, Routine [facility] LORazepam (ATIVAN) injection 1 mg 02-15 21:45: 00 02-15 21:46 :00 No [id number] 1mg 1 mg, Slow IV Push, ONCE, 1 dose, On Sat02/15/23 at 1645, STAT [facility] ondansetron (ZOFRAN (PF)) injection 4 mg 02-15 21:45: 00 02-15 21:46 :00 No [id number] 4mg 4 mg, Slow IV Push, ONCE, 1 dose, On Sat02/15/23 at 1645, [facility] HYDROcodone -acetaminop hen (NORCO) 10-325 mg tablet 1 tablet 02-15 20:15: 00 02-15 19:52 :00 No [id number] 1{tbl} 1 tablet, Oral, ONCE, 1 dose, On Sat02/15/23 at 1515, Routine [facility] Melatonin 1 mg tablet 02-15 20:08: 23 02-15 00:00 :00 No 10mg Take 10 tablets by mouth every evening. [facility] trazodone HCl (DESYREL ORAL) 02-15 20:06: 33 02-15 00:00 :00 No 200mg Take 200 mg by mouth every evening. [facility] OLANZapine (ZYPREXA) 2.5 mg tablet 02-15 20:05: 48 02-15 00:00 :00 No 2.5mg Take 1 tablet by mouth in the morning and 1 tablet in the evening. [facility] hydrOXYzine (VISTARIL) 50 mg capsule 02-15 20:03: 04 02-15 00:00 :00 No 50mg Take 1 capsule by mouth every 4 (four) hours as needed for Itching. q 4-6 hours as needed [facility] dicyclomine (BENTYL) tablet 20 mg 02-15 19:30: 00 02-15 19:52 :00 No [id number] 20mg 20 mg, Oral, ONCE, 1 dose, On Sat02/15/23 at 1430, [facility] ibuprofen (IBU) tablet 800 mg 02-15 19:30: 00 02-15 19:52 :00 No [id number] 800mg 800 mg, Oral, ONCE, 1 dose, On Sat02/15/23 at 1430, [facility] losartan 50 mg tablet 02-15 13:44: 36 02-15 00:00 :00 No 50mg Take 1 tablet by mouth in the morning. [facility] [place]-3-DHA -EPA-Fish Oil (FISH OIL) 1,000 mg (120 mg-180 mg) Cap 02-15 13:44: 15 02-15 00:00 :00 No 1000mg Take 1,000 mg by mouth daily. [facility] methocarbam oL 750 mg tablet 02-15 13:43: 47 02-15 00:00 :00 No 750mg Take 750 mg by mouth 3 (three) times daily. [facility] FENTanyl PF (SUBLIMAZE (PF)) injection 50 mcg 01-10 00:45: 00 01-09 23:46 :00 No 50ug 50 mcg, Slow IV Push, ONCE, 1 dose, On Sat01/09/22 at 1945, Routine [facility] ketorolac (TORADOL) injection 30 mg 01-09 23:45: 00 01-09 22:48 :00 No 30mg 30 mg, Slow IV Push, ONCE, 1 dose, On Sat01/09/22 at 1845, Routine [facility] aspirin chewable tablet 243 mg 12-14 14:00: 00 Yes 243mg 243 mg, Oral, DAILY, First dose on [place] 12/14/21 at 0900, Until Discontinu ed, Routine [facility] ketorolac (TORADOL) injection 15 mg 12-14 08:15: 00 12-14 07:11 :00 No 15mg 15 mg, Slow IV Push, ONCE, 1 dose, On [place] 12/14/21 at 0315, [facility] morpHINE (4 mg/mL) injection 4 mg 12-14 05:45: 00 12-14 04:52 :00 No 4mg 4 mg, Slow IV Push, ONCE, 1 dose, On [place] 12/14/21 at 0045, STAT [facility] cefTRIAXone (ROCEPHIN) 1,000 mg in NaCl 0.9% (NS) 50 mL MINI-BAG 12-14 05:45: 00 12-14 05:30 :00 No 1000mg 1,000 mg, IV Piggyback, ONCE, 1 dose, On [place] 12/14/21 at 0045, Administer over 30 Minutes, 50 mL
Reas on for Anti-Infec tive: Documented Infection< br>Documen kaushik Infection Site: Urine
D uration of Therapy: Other (see Comments) [facility] NaCl 0.9% (NS) bolus infusion 1,000 mL 12-14 05:45: 00 12-14 07:20 :00 No 1000mL at 999 mL/hr, 1,000 mL, IV Infusion, ONCE, 1 dose, On [place] 12/14/21 at 0045, [facility] ondansetron (ZOFRAN (PF)) injection 4 mg 12-14 04:45: 00 12-14 03:50 :00 No 4mg 4 mg, Slow IV Push, ONCE, 1 dose, [facility] Sat12/13/21 at 2345[facility] (SUBLIMAZE (PF)) injection 50 mcg 12-14 04:45: 00 12-14 03:50 :00 No 50ug 50 mcg, Slow IV Push, ONCE, 1 dose, On Sat12/13/21 at 2345, Routine [facility] ALPRAZolam (XANAX) 1 mg tablet 12-14 02:22: 13 Yes 1mg Take 1 mg by mouth 2 (two) times daily. [facility] naproxen 500 mg tablet 12-14 00:00: 00 02-15 00:00 :00 No [id number] 500mg Take 1 tablet by mouth 2 (two) times daily with meals. [facility] cefpodoxime 200 mg tablet 12-14 00:00: 00 12-22 04:59 :00 No [id number] 200mg Take 1 tablet by mouth 2 (two) times daily for 7 days. [facility] LORazepam (ATIVAN) injection 1 mg 11-12 05:00: 00 11-12 04:01 :00 No 1mg 1 mg, Slow IV Push, ONCE, 1 dose, On 11/12/21 at 0000, STAT [facility] ketorolac (TORADOL) injection 30 mg 11-12 03:30: 00 11-12 02:26 :00 No 30mg 30 mg, Slow IV Push, ONCE, 1 dose, On 11/11/21 at 2230, Routine
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 (ECOTRIN) tablet 325 mg 11-12 03:30: 00 11-12 02:25 :00 No 325mg 325 mg, Oral, ONCE, 1 dose, On 11/11/21 at 2230, [facility] morpHINE (4 mg/mL) injection 4 mg 11-12 02:30: 00 11-12 01:40 :00 No 4mg 4 mg, Slow IV Push, ONCE, 1 dose, On 11/11/21 at 2130, [facility] ondansetron (ZOFRAN (PF)) injection 4 mg 11-12 02:30: 00 11-12 01:40 :00 No 4mg 4 mg, Slow IV Push, ONCE, 1 dose, On 11/11/21 at 2130, [facility] NaCl 0.9% (NS) bolus infusion 1,000 mL 11-12 02:30: 00 11-12 02:30 :00 No 1000mL at 999 mL/hr, 1,000 mL, IV Infusion, ONCE, 1 dose, On 11/11/21 at 2130, [facility] hydrOXYzine 50 mg tablet 11-11 00:00: 00 04-08 00:00 :00 No [id number] 50mg Take 1 tablet by mouth every 8 (eight) hours as needed for Anxiety. [facility] ketorolac (TORADOL) injection 30 mg 08 05:45: 00 09-12 04:54 :00 No 30mg 30 mg, Slow IV Push, ONCE, 1 dose, On 09/11/21 at 2345, Routine
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 Restricted medication : DEE WANG [facility] cefTRIAXone (ROCEPHIN) 1,000 mg in NaCl 0.9% (NS) 50 mL MINI-BAG 09-12 03:45: 00 09-12 03:41 :00 No 1000mg 1,000 mg, IV Piggyback, ONCE, 1 dose, On Sat09/11/21 at 2145, Administer over 30 Minutes, 50 mL
Reas on for Anti-Infec tive: Documented Infection< br>Documen kaushik Infection Site: Urine
D uration of Therapy: 7 days [facility] ondansetron (ZOFRAN (PF)) injection 4 mg 09-12 03:15: 00 09-12 02:39 :00 No 4mg 4 mg, Slow IV Push, ONCE, 1 dose, On Sat09/11/21 at 2115, ROSELYN [facility] morpHINE injection 4 mg 09-12 03:15: 00 09-12 02:39 :00 No 4mg 4 mg, Slow IV Push, ONCE, 1 dose, On Sat09/11/21 at 2115, STAT [facility] iopamidol (ISOVUE 370-500 mL) injection 120 mL 09-12 02:45: 00 09-12 03:00 :00 No [id number] 120mL 120 mL, Intravenou s, ONCE, 1 dose, On Sat09/11/21 at 2100, Routine [facility] sodium chloride (NS) injection 5 mL 09-12 01:33: 26 Yes 5mL 5 mL, Intravenou s, PRN, Starting on Sat09/11/21 at 1933, Until Discontinu ed, Routine, IV line flushing [facility] ibuprofen 600 mg tablet 09-11 00:00: 00 02-15 00:00 :00 No [id number] 600mg Take 1 tablet by mouth every 6 (six) hours as needed for Pain (scale 4-6). [facility] cefdinir 300 mg capsule 09-11 00:00: 00 2022- 03-15 04:59 :00 No [id number] 300mg Take 1 capsule by mouth 2 (two) times daily for 7 days. [facility] HYDROcodone -acetaminop hen (NORCO) 10-325 mg tablet 1 tablet 08-15 09:00: 00 08-15 07:59 :00 No 1{tbl} 1 tablet, Oral, ONCE, 1 dose, On Sat08/15/21 at 0300, Routine [facility] FENTanyl PF (SUBLIMAZE (PF)) injection 75 mcg 08-15 07:30: 00 08-15 06:42 :00 No 75ug 75 mcg, Intramuscu lar, ONCE, 1 dose, On Sat08/15/21 at 0130, Routine [facility] methocarbam oL (ROBAXIN) 500 mg tablet 08-15 00:00: 00 Yes [id number] 500mg Take 1 tablet by mouth every 6 (six) hours as needed for Pain (scale 7-10) (MUSCLE SPASM). [facility] traMADoL (ULTRAM) 50 mg tablet 08-15 00:00: 00 Yes [id number] 50mg Take 1 tablet by mouth every 6 (six) hours as needed for Pain (scale 7-10). Indication s: acute pain [facility] Nitrofurant oin&Nit. Macrocryst (MACROBID) 100 mg capsule 08-15 00:00: 00 02-15 00:00 :00 No [id number] 100mg Take 1 capsule by mouth 2 (two) times daily. [facility] morpHINE injection 4 mg 2020-07 08:30: 00 05-28 07:50 :00 No 4mg 4 mg, Slow IV Push, ONCE, 1 dose, On Sat05/28/21 at 0230, ROSELYN [facility] maalox:diph enhydrAMINE :lidocaine 2 % viscous 1:1:1 (FIRST-MOUT HWASH BLM) oral suspension 15 mL 2020-07 08:00: 00 05-28 07:04 :00 No 15mL 15 mL, Oral, ONCE, 1 dose, On Sat05/28/21 at 0200, Routine [facility] FENTanyl PF (SUBLIMAZE (PF)) injection 50 mcg 2020-07 07:00: 00 05-28 06:02 :00 No 50ug 50 mcg, Slow IV Push, ONCE, 1 dose, On 05/28/21 at 0100, STAT [facility] famotidine (PEPCID (PF)) injection 20 mg 2020-07 07:00: 00 05-28 06:01 :00 No 20mg 20 mg, Slow IV Push, ONCE, 1 dose, On 05/28/21 at 0100, ROSELYN [facility] famotidine 20 mg tablet 2020-07 00:00: 00 06-13 05:59 :00 No [id number] 20mg Take 1 tablet by mouth 2 (two) times daily for 15 days. [facility] escitalopra m oxalate (LEXAPRO) tablet 10 mg 2020-07 02:00: 00 Yes 10mg 10 mg, Oral, QHS, First dose on 04/08/21 at 2100, Until Discontinu ed, Routine [facility] aspirin 81 mg chewable tablet 2020-07 00:00: 00 05-10 04:59 :00 No [id number] 81mg Take 1 tablet by mouth daily for 30 days. [facility] traZODone (DESYREL) tablet 200 mg 2020-07 22:00: 00 Yes 200mg 200 mg, Oral, QPM, First dose on 04/08/21 at 1700, Until Discontinu ed [facility] topiramate (TOPAMAX) tablet 200 mg 2020-07 22:00: 00 Yes 200mg 200 mg, Oral, QPM, First dose on 04/08/21 at 1700, Until Discontinu ed, Routine
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 [facility] [place]-3-DHA -EPA-Fish Oil (FISH OIL) 1,000 mg (120 mg-180 mg) Cap 2020-07 17:45: 33 Yes 1000mg Take 1,000 mg by mouth daily. [facility] hydrOXYzine (VISTARIL) 50 mg capsule 2020-07 17:45: 33 Yes 50mg Take 50 mg by mouth every 4 (four) hours as needed for Itching. q 4-6 hours as needed [facility] losartan 50 mg tablet 2020-07 17:45: 33 Yes 50mg Take 50 mg by mouth daily. [facility] trazodone HCl (DESYREL ORAL) 2020-07 17:45: 33 Yes 200mg Take 200 mg by mouth every evening. [facility] escitalopra m oxalate (LEXAPRO) 5 mg tablet 2020-07 17:45: 33 Yes 10mg Take 10 mg by mouth at bedtime. [facility] Melatonin 1 mg tablet 2020-07 17:45: 33 Yes 10mg Take 10 mg by mouth every evening. [facility] topiramate (TOPAMAX) 200 mg tablet 2020-07 17:45: 33 Yes 200mg Take 200 mg by mouth every evening. [facility] bupropion HCl (WELLBUTRIN ORAL) 2020-07 17:45: 33 Yes 150mg Take 150 mg by mouth every morning. [facility] OLANZapine (ZYPREXA) 15 mg tablet 2020-07 17:45: 33 Yes 15mg Take 15 mg by mouth every evening. [facility] OLANZapine (ZYPREXA) 2.5 mg tablet 2020-07 17:45: 33 Yes 2.5mg Take 2.5 mg by mouth 2 (two) times daily. [facility] furosemide (LASIX) injection 20 mg 2020-07 14:30: 00 Yes 20mg 20 mg, Slow IV Push, Q12H, First dose on 04/08/21 at 0930, Until Discontinu ed, Routine [facility] losartan (COZAAR) tablet 50 mg 2020-07 14:00: 00 Yes 50mg 50 mg, Oral, DAILY, First dose on 04/08/21 at 0900, Until Discontinu ed, Routine [facility] buPROPion XL (WELLBUTRIN XL) tablet 150 mg 2020-07 14:00: 00 Yes 150mg 150 mg, Oral, DAILY, First dose on 04/08/21 at 0900, Until Discontinu ed [facility] aspirin chewable tablet 81 mg 2020-07 14:00: 00 Yes 81mg 81 mg, Oral, DAILY, First dose on 04/08/21 at 0900, Until Discontinu ed, Routine [facility] enoxaparin (LOVENOX) injection 40 mg 2020-07 14:00: 00 Yes 40mg 40 mg, Subcutaneo us, DAILY, First dose on 04/08/21 at 0900, Until Discontinu ed, Routine [facility] OLANZapine (ZyPREXA) tablet 2.5 mg 2020-07 13:00: 00 Yes 2.5mg 2.5 mg, Oral, BID, First dose on 04/08/21 at 0800, Until Discontinu ed, Routine [facility] methocarbam oL (ROBAXIN) tablet 750 mg 2020-07 13:00: 00 Yes 750mg 750 mg, Oral, TID, First dose on 04/08/21 at 0800, Until Discontinu ed, [facility] LOR[facility]am (ATIVAN) injection 0.5 mg 2020-07 04:07: 43 Yes .5mg 0.5 mg, Slow IV Push, PRN, 2 doses, Starting on Sat04/07/21 at 2307, Until Discontinu ed, Routine, Anxiety [facility] hydrOXYzine (ATARAX) tablet 50 mg 2020-07 0- 02:51: 23 Yes 50mg 50 mg, Oral, Q4HPRN, Starting on Sat04/07/21 at 2151, Until Discontinu ed, Itching [facility] LORazepam (ATIVAN) tablet 0.5 mg 2020-07 0 02:05: 29 Yes .5mg 0.5 mg, Oral, PRN, 2 doses, Starting on Sat04/07/21 at 2105, Until Discontinu ed, Routine, Anxiety [facility] morpHINE injection 4 mg 2020-07 0 00:00: 00 04-07 22:58 :00 No 4mg 4 mg, Slow IV Push, ONCE, 1 dose, On Sat04/07/21 at 1900, STAT [facility] ondansetron (ZOFRAN (PF)) injection 4 mg 2020-07 0 00:00: 00 04-07 22:56 :00 No 4mg 4 mg, Slow IV Push, ONCE, 1 dose, On Sat04/07/21 at 1900, ROSELYN [facility] morpHINE injection 4 mg 2020-07 0 23:58: 03 04-08 23:57 :03 No 4mg 4 mg, Slow IV Push, Q4HPRN, Starting on Sat04/07/21 at 1858, Until 04/08/21 at 1857, Routine, Pain (scale 7-10) [facility] HYDROcodone -acetaminop hen (NORCO 5) 5-325 mg tablet 1 tablet 2020-07 0 23:58: 00 04-09 23:57 :00 No 1{tbl} 1 tablet, Oral, Q6HPRN, Starting on Sat04/07/21 at 1858, Until 04/09/21 at 1857, Routine, Pain (scale 4-6) [facility] acetaminoph en (TYLENOL) tablet 650 mg 2020-07 23:57: 57 Yes 650mg 650 mg, Oral, Q6HPRN, Starting on Sat04/07/21 at 1857, Until Discontinu ed, Routine, Pain (scale 1-3) [facility] aspirin tablet 325 mg 2020-07 23:00: 00 04-07 21:56 :00 No 325mg 325 mg, Oral, ONCE, 1 dose, On Sat04/07/21 at 1800, STAT [facility] nitroglycer in (NITROSTAT) sublingual tablet 0.4 mg 2020-07 21:51: 01 04-07 22:46 :00 No .4mg 0.4 mg, Sublingual , Q5MIN PRN, 3 doses, Starting on Sat04/07/21 at 1651, Until Discontinu ed, ROSELYN, Chest pain [facility] fluconazole (DIFLUCAN) tablet 150 mg 01-12 14:00: 00 Yes 150mg 150 mg, Oral, DAILY, First dose on Sat01/12/21 at 0900, Until Discontinu ed, ROSELYN
Re ason for Anti-Infec tive: Empiric Therapy for Suspected Infection< br>Empiric Therapy Site: HEENT
D uration of therapy: 72 hours [facility] cefTRIAXone (ROCEPHIN) 1,000 mg in NaCl 0.9% (NS) 50 mL MINI-BAG 01-12 10:15: 00 01-12 09:49 :00 No 1000mg 1,000 mg, IV Piggyback, ONCE, 1 dose, [facility] 01/12/21 at 0515, 50 mL
Reas on for Anti-Infec tive: Empiric Therapy for Suspected Infection< br>Empiric Therapy Site: Urine
D uration of therapy: 72 hours [facility] hydrOXYzine (ATARAX) tablet 25 mg 01-12 10:15: 00 01-12 09:18 :00 No 25mg 25 mg, Oral, ONCE, 1 dose, [facility] 01/12/21 at 0515, ROSELYN [facility] HYDROcodone -acetaminop hen (NORCO) 10-325 mg tablet 1 tablet 01-12 10:15: 00 01-12 09:18 :00 No 1{tbl} 1 tablet, Oral, ONCE, 1 dose, [place] 01/12/21 at 0515, Routine [facility] maalox:diph enhydrAMINE :lidocaine2 %viscous 1:1:1: suspension (COMPOUNDED ) 01-12 09:30: 00 01-12 08:25 :00 No 15mL 15 mL, Oral, ONCE, 1 dose, [place] 01/12/21 at 0430, Routine [facility] cephALEXin (KEFLEX) 500 mg capsule 01-12 00:00: 00 04-07 00:00 :00 No [id number] 500mg Take 1 capsule by mouth 3 (three) times daily. [facility] HYDROcodone -acetaminop hen (NORCO 5) 5-325 mg tablet 1 tablet 12-11 02:00: 00 12-11 01:29 :00 No 1{tbl} 1 tablet, Oral, ONCE, 1 dose, 12/10/20 at 2100, ROSELYN [facility] LORazepam (ATIVAN) injection 1 mg 12-11 00:30: 00 12-10 23:36 :00 No 1mg 1 mg, Slow IV Push, ONCE, 1 dose, 12/10/20 at 1930, STAT [facility] ketorolac (TORADOL) injection 30 mg 12-11 00:30: 00 12-10 23:36 :00 No 30mg 30 mg, Slow IV Push, ONCE, 1 dose, 12/10/20 at 1930, ROSELYN
Fa culty member approving Restricted medication : EMERGENCY ROOM, [facility] ondansetron (ZOFRAN (PF)) injection 4 mg 12-10 23:45: 00 12-10 22:46 :00 No 4mg 4 mg, Slow IV Push, ONCE, 1 dose, 12/10/20 at 1845, ROSELYN [facility] NaCl 0.9% (NS) bolus infusion 2,000 mL 12-10 22:45: 00 12-11 01:29 :00 No 2000mL at 999 mL/hr, 2,000 mL, IV Infusion, ONCE, 1 dose, 12/10/20 at 1745, [facility] proMETHazin e 25 mg tablet 12-10 00:00: 00 04-07 00:00 :00 No [id number] 12.5mg Take 0.5 tablets by mouth every 6 (six) hours as needed for N/V unresponsi ve to Ondansetro n. [facility] morpHINE injection 4 mg 12-04 22:30: 00 12-04 21:37 :00 No 4mg 4 mg, Slow IV Push, ONCE, 1 dose, 12/04/20 at 1730, STAT [facility] losartan 50 mg tablet 12-04 22:03: 53 Yes 50mg Take 50 mg by mouth daily. [facility] LORazepam (ATIVAN) tablet 1 mg 12-04 21:45: 00 12-04 20:44 :00 No 1mg 1 mg, Oral, ONCE, 1 dose, 12/04/20 at 1645, [facility] ondansetron (ZOFRAN (PF)) injection 4 mg 12-04 21:15: 00 12-04 20:22 :00 No 4mg 4 mg, Slow IV Push, ONCE, 1 dose, [facility]04[facility]20 [facility] 1615[facility] 12-04 21:15: 00 12-04 20:21 :00 No 4mg 4 mg, Slow IV Push, ONCE, 1 dose, 12/04/20 at 1615, STAT [facility] ALPRAZolam (XANAX) 2 mg tablet 11-04 04:24: 19 11-03 00:00 :00 No 2mg Take 2 mg by mouth at bedtime. [facility] LORazepam (ATIVAN) injection 1 mg 11-04 04:00: 00 11-04 02:57 :00 No 1mg 1 mg, Slow IV Push, ONCE, 1 dose, [facility] 11/03/20 at 2300, STAT [facility] LORazepam (ATIVAN) tablet 1 mg 11-04 04:00: 00 11-04 02:57 :00 No 1mg 1 mg, Oral, ONCE, 1 dose, [facility] 11/03/20 at 2300, ROSELYN [facility] clonazePAM 0.5 mg tablet 11-01 00:00: 00 04-07 00:00 :00 No .5mg Take 0.5 mg by mouth. [facility] SERTraline 100 mg tablet 11-01 00:00: 00 04-07 00:00 :00 No 100mg Take 100 mg by mouth. [facility] busPIRone 10 mg tablet 10-18 00:00: 00 04-07 00:00 :00 No 10mg Take 10 mg by mouth. [facility] Ciprofloxac in/Dexameth asone (Ciprodex 0.3%-0.1% Otic*) 1 Ea SUSP Ciprofloxac in/Dexameth asone (Ciprodex 0.3%-0.1% Otic*) 1 Ea SUSP 09-19 13:53: 00 09-30 00:00 :00 No [facility] 800 mg 09-17 16:55: 00 09-17 16:57 :00 No 800mg 800 mg, Oral, ONCE, 1 dose, 09/17/20 at 1100, ROSELYN [facility] benzonatate 100 mg capsule 09-17 00:00: 00 04-07 00:00 :00 No [id number] 100mg Take 1 capsule by mouth 3 (three) times daily as needed for Cough. [facility] amoxicillin 500 mg capsule 2021-0 3-13 00:00: 00 09-28 04:59 :00 No [id number] 500mg Take 1 capsule by mouth 3 (three) times daily for 10 days. [facility] HYDROcodone -acetaminop hen (NORCO) 10-325 mg tablet 1 tablet 09-07 07:45: 00 09-07 07:09 :00 No 1{tbl} 1 tablet, Oral, ONCE, 1 dose, Sat09/07/20 at 0145, Routine [facility] ondansetron (ZOFRAN-ODT ) disintegrat ing tablet 4 mg 09-07 07:15: 00 09-07 07:15 :00 No 4mg 4 mg, Oral, ONCE, 1 dose, Sat09/07/20 at 0130, Routine [facility] ibuprofen 800 mg tablet 09-07 00:00: 00 Yes [id number] 800mg Take 1 tablet by mouth every 8 (eight) hours as needed for Pain (scale 4-6). [facility] ketorolac (TORADOL) injection 30 mg 08-28 10:45: 00 08-28 09:48 :00 No 30mg 30 mg, Slow IV Push, ONCE, 1 dose, 08/28/20 at 0445, Routine
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 Restricted medication : OLIVIA GARCIA [facility] ondansetron (ZOFRAN (PF)) injection 4 mg 08-28 10:00: 00 08-28 09:06 :00 No 4mg 4 mg, Slow IV Push, ONCE, 1 dose, 08/28/20 at 0400, ROSELYN [facility] FENTanyl PF (SUBLIMAZE (PF)) injection 50 mcg 08-28 10:00: 00 08-28 09:07 :00 No 50ug 50 mcg, Slow IV Push, ONCE, 1 dose, 08/28/20 at 0400, Routine [facility] maalox:diph enhydrAMINE :lidocaine 2 % viscous 1:1:1 (FIRST-MOUT HWASH BLM) oral suspension 15 mL 08-28 10:00: 00 08-28 09:07 :00 No 15mL 15 mL, Oral, ONCE, 1 dose, 08/28/20 at 0400, Routine [facility] iohexol (OMNIPAQUE 350 BULK-100 mL) injection 120 mL 08-28 09:30: 00 08-28 09:11 :00 No 120mL 120 mL, Intravenou s, ONCE, 1 dose, 08/28/20 at 0330, Routine [facility] dicyclomine 20 mg tablet 08-28 00:00: 00 04-07 00:00 :00 No [id number] 20mg Take 1 tablet by mouth every 6 (six) hours as needed for Abdominal pain. [facility] ondansetron (ZOFRAN) 4 mg tablet 08-28 00:00: 00 09-17 00:00 :00 No [id number] 4mg Take 1 tablet by mouth every 8 (eight) hours as needed for Nausea and Vomiting (N/V). [facility] FENTanyl PF (SUBLIMAZE (PF)) injection 25 mcg 08-14 19:00: 00 08-14 18:09 :00 No 25ug 25 mcg, Slow IV Push, ONCE, 1 dose, 08/14/20 at 1300, STAT [facility] ondansetron (ZOFRAN (PF)) injection 4 mg 08-14 19:00: 00 08-14 18:10 :00 No 4mg 4 mg, Slow IV Push, ONCE, 1 dose, 08/14/20 at 1300, ROSELYN [facility] ketorolac (TORADOL) injection 15 mg 08-14 19:00: 00 08-14 18:09 :00 No 15mg 15 mg, Slow IV Push, ONCE, 1 dose, 08/14/20 at 1300, ROSELYN
Fa culty member approving Restricted medication : BEST TAYLOR [facility] piperacilli n-tazobacta m (ZOSYN) 3.375 g in NaCl 0.9% (NS) 100 mL MINI-BAG 08-14 19:00: 00 08-14 18:38 :00 No 3.375g 3.375 g, IV Piggyback, ONCE, 1 dose, 08/14/20 at 1300, 100 mL
Reas on for Anti-Infec tive: Documented Infection< br>Documen kaushik Infection Site: Urine
D uration of Therapy: Other (see Comments) [facility] NaCl 0.9% (NS) bolus infusion 1,000 mL 08-14 19:00: 00 08-14 19:00 :00 No 1000mL at 999 mL/hr, 1,000 mL, IV Infusion, ONCE, 1 dose, 08/14/20 at 1300, STAT [facility] guaiFENesin 100 mg/5 mL solution 08-14 00:00: 00 04-07 00:00 :00 No [id number] 100mg Take 5 mL by mouth every 4 (four) hours. [facility] ondansetron 4 mg disintegrat ing tablet 08-14 00:00: 00 09-17 00:00 :00 No [id number] 4mg Take 1 tablet by mouth every 8 (eight) hours as needed for Nausea and Vomiting (N/V). [facility] ibuprofen 600 mg tablet 08-14 00:00: 00 09-17 00:00 :00 No [id number] 600mg Take 1 tablet by mouth every 6 (six) hours as needed for Pain (scale 4-6). [facility] amoxicillin -clavulanat e 875-125 mg per tablet 08-14 00:00: 00 08-25 05:59 :00 No [id number] 1{tbl} Take 1 tablet by mouth 2 (two) times daily for 10 days. [facility] fluconazole (DIFLUCAN) tablet 150 mg 08-11 15:00: 00 Yes 150mg 150 mg, Oral, DAILY, First dose on [place] 08/11/20 at 0900, Until Discontinu ed, ROSELYN
Re ason for Anti-Infec tive: Documented Infection< br>Documen kaushik Infection Site: Urine
D uration of Therapy: Other (see Comments) [facility] HYDROcodone -acetaminop hen (NORCO) 10-325 mg tablet 1 tablet 2-04 05:30: 00 08-11 05:08 :00 No 1{tbl} 1 tablet, Oral, ONCE NOW, 1 dose, Sat08/10/20 at 2330, Routine [facility] FENTanyl PF (SUBLIMAZE (PF)) injection 25 mcg 2- 04:30: 00 08-11 03:19 :00 No 25ug 25 mcg, Slow IV Push, ONCE, 1 dose, 08/10/20 at 2230, STAT [facility] ondansetron (ZOFRAN (PF)) injection 4 mg 08-11 04:15: 00 08-11 03:19 :00 No 4mg 4 mg, Slow IV Push, ONCE, 1 dose, 08/10/20 at 2215, ROSELYN [facility] NaCl 0.9% (NS) bolus infusion 1,000 mL 2-04 01:45: 00 08-11 03:45 :00 No 1000mL at 999 mL/hr, 1,000 mL, IV Infusion, ONCE, 1 dose, 08/10/20 at 1945, STAT [facility] ketorolac (TORADOL) injection 30 mg 2-04 01:45: 00 08-11 02:31 :00 No 30mg 30 mg, Slow IV Push, ONCE, 1 dose, 08/10/20 at 1945, ROSELYN
Fa culty member approving Restricted medication : BEST TAYLOR [facility] traMADoL (ULTRAM) 50 mg tablet 2- 00:00: 00 09-17 00:00 :00 No [id number] 50mg Take 1 tablet by mouth every 6 (six) hours as needed for Pain (scale 7-10). Indication s: acute pain [facility] ibuprofen 800 mg tablet 08-07 00:00: 00 09-17 00:00 :00 No [id number] 800mg Take 1 tablet by mouth every 8 (eight) hours. [facility] amoxicillin 500 mg capsule 08-07 00:00: 00 09-17 00:00 :00 No [id number] 500mg Take 1 capsule by mouth 3 (three) times daily. [facility] traMADoL 50 mg tablet 08-07 00:00: 00 09-17 00:00 :00 No [id number] 50mg Take 1 tablet by mouth every 6 (six) hours as needed for Pain (scale 4-6). Indication s: acute pain [facility] LORazepam (ATIVAN) tablet 1 mg 2019-07 03:15: 00 07-01 02:21 :00 No 1mg 1 mg, Oral, ONCE, 1 dose, [place] 06/30/20 at 2115, ROSELYN [facility] FENTanyl PF (SUBLIMAZE (PF)) injection 50 mcg 2019-07 02:30: 00 07-01 01:39 :00 No 50ug 50 mcg, Slow IV Push, ONCE, 1 dose, [place] 06/30/20 at 2030, Routine [facility] ondansetron (ZOFRAN-ODT ) disintegrat ing tablet 4 mg 2019-07 01:15: 00 07-01 00:52 :00 No 4mg 4 mg, Oral, ONCE, 1 dose, [place] 06/30/20 at 191, Routine [facility] ketorolac (TORADOL) injection 30 mg 2019-07 01:15: 07-01 00:52 :00 No 30mg 30 mg, Slow IV Push, ONCE, 1 dose, [place] 06/30/20 at 1915, ROSE[facility]N
[facility] member approving Restricted medication : ABDIAS ROBERTSON [facility] albuterol 90 mcg/actuati on inhaler 2019-07 00:00: 00 04-07 00:00 :00 No [id number] 2{puff} Inhale 2 Puffs every 4 (four) hours as needed for Wheezing or Shortness of Breath. [facility] hydrOXYzine 25 mg tablet 2019-07 00:00: 00 09-17 00:00 :00 No [id number] 25mg Take 1 tablet by mouth every 6 (six) hours as needed for Anxiety. [facility] naproxen sodium (ANAPROX DS) 550 mg tablet 2019-07 00:00: 00 04-07 00:00 :00 No [id number] 550mg Take 1 tablet by mouth 2 (two) times daily with meals. [facility] methylPREDN ISolone (MEDROL, BEBETO,) 4 mg tablets 2019-07 00:00: 00 09-17 00:00 :00 No [id number] Take by mouth SEE-INSTRU CTIONS. follow package directions [facility] methocarbam oL 500 mg tablet 2019-07 00:00: 00 07-04 05:59 :00 No [id number] 500mg Take 1 tablet by mouth 3 (three) times daily for 5 days. [facility] proMETHazin e (PHENERGAN) tablet 25 mg 2019-07 04:45: 00 06-13 03:37 :00 No 25mg 25 mg, Oral, ONCE, 1 dose, 06/12/20 at 2245, ROSELYN [facility] ondansetron (ZOFRAN (PF)) injection 4 mg 2019-07 03:00: 00 06-13 01:59 :00 No 4mg 4 mg, Slow IV Push, ONCE, 1 dose, 06/12/20 at 2100, ROSELYN [facility] ketorolac (TORADOL) injection 15 mg 2019-07 03:00: 00 06-13 01:58 :00 No 15mg 15 mg, Intramuscu lar, ONCE, 1 dose, 06/12/20 at 2100, ROSELYN
Fa culty member approving Restricted medication : LEEANNE WISE [facility] morpHINE injection 4 mg 2019-07 01:30: 06-13 00:41 :00 No 4mg 4 mg, Slow IV Push, ONCE, 1 dose, 06/12/20 at 1930, STAT [facility] ondansetron (ZOFRAN (PF)) injection 4 mg 2019-07 00:45: 00 06-13 00:41 :00 No 4mg 4 mg, Slow IV Push, ONCE, 1 dose, 06/12/20 at 1845, ROSELYN [facility] NaCl 0.9% (NS) bolus infusion 1,000 mL 2019-07 23:45: 00 06-13 03:54 :00 No 1000mL at 999 mL/hr, 1,000 mL, IV Infusion, ONCE, 1 dose, 06/12/20 at 1745, ROSELYN [facility] dicyclomine 20 mg tablet 2019-07 00:00: 00 04-07 00:00 :00 No [id number] 20mg Take 1 tablet by mouth 4 (four) times daily as needed for Abdominal pain. [facility] proMETHazin e 25 mg tablet 2019-07 00:00: 00 09-17 00:00 :00 No [id number] 25mg Take 1 tablet by mouth every 6 (six) hours as needed for Nausea and Vomiting (N/V). [facility] famotidine 20 mg tablet 2019-07 00:00: 00 06-27 05:59 :00 No [id number] 20mg Take 1 tablet by mouth at bedtime for 14 days. [facility] haloperidol lactate (HALDOL) injection 2.5 mg 2019-07 01:00: 00 05-16 23:51 :00 No 2.5mg 2.5 mg, Intravenou s, ONCE, 1 dose, 05/16/20 at 1900, STAT [facility] NaCl 0.9% (NS) bolus infusion 1,000 mL 2019-07 23:45: 00 05-17 00:54 :00 No 1000mL at 999 mL/hr, 1,000 mL, IV Infusion, ONCE, 1 dose, 05/16/20 at 1745, ROSELYN [facility] proMETHazin e (PHENERGAN) 25 mg suppository 2019-07 00:00: 00 Yes [id number] 25mg Insert 1 Suppositor y into rectum every 4 (four) hours as needed for Nausea and Vomiting (N/V). [facility] ondansetron (ZOFRAN (PF)) injection 4 mg 2019-07 07:30: 05-15 06:26 :00 No 4mg 4 mg, Slow IV Push, ONCE, 1 dose, 05/15/20 at 0130, ROSELYN [facility] iohexol (OMNIPAQUE 350 BULK-100 mL) injection 120 mL 2019-07 07:00: 00 05-15 06:52 :00 No 120mL 120 mL, Intravenou s, ONCE, 1 dose, [place] 05/15/20 at 0100, Routine [facility] ondansetron (ZOFRAN (PF)) injection 4 mg 2019-07 06:30: 00 05-15 05:52 :00 No 4mg 4 mg, Slow IV Push, ONCE, 1 dose, [place] 05/15/20 at 0030, [facility] ALPRAZolam (XANAX) 2 mg tablet 2019-07 05:30: 59 Yes 2mg Take 2 mg by mouth at bedtime. [facility] zolpidem 5 mg tablet 6-15 00:00: 00 04-07 00:00 :00 No 5mg Take 5 mg by mouth. [facility] Immunizations Ordered Immunization Name Filled Immunization Name Date Status Comments Source Covid-19 Vaccine Moderna (Spikevax), Mrna-lnp, Zackery Protein, Pf Unknown Completed Kellee Davies Covid-19 Vaccine Moderna (Spikevax), Mrna-lnp, Zackery Protein, Pf Unknown Completed Kellee Davies Covid-19 Vaccine Moderna (Spikevax), Mrna-lnp, Zackery Protein, Pf Unknown Completed Kellee Buckley Samson Covid-19 Vaccine Moderna (Spikevax), Mrna-lnp, Zackery Protein, Pf Unknown Completed Kellee Buckley - External Covid-19 Vaccine Moderna (Spikevax), Mrna-lnp, Zackery Protein, Pf Unknown Completed Kellee Buckley - External Covid-19 Vaccine Moderna (Spikevax), Mrna-lnp, Zackery Protein, Pf Unknown Completed Kellee Buckley - External Vital Signs Vital Name Observation Time Observation Value Comments S donnie Systolic blood pressure 2024-07-04 07:00:00 132 mm[Hg] [facility] Diastolic blood pressure 2024-07-04 07:00:00 98 mm[Hg] [facility] Heart rate 2024-07-04 07:00:00 85 /min [facility] Body temperature 2024-07-04 07:00:00 36.78 Latanya [facility] Respiratory rate 2024-07-04 07:00:00 18 /min [facility] Oxygen saturation in Arterial blood by Pulse oximetry 2024-07-04 07:00:00 94 /min [facility] Body height 2024-07-04 01:53:00 157.5 cm [facility] Body weight 2024-07-04 01:53:00 105.688 kg [facility] BMI 2024-07-04 01:53:00 42.62 kg/m2 [facility] Systolic blood pressure 2024-06-21 08:00:00 180 mm[Hg] [facility] Diastolic blood pressure 2024-06-21 08:00:00 107 mm[Hg] [facility] Heart rate 2024-06-21 08:00:00 89 /min [facility] Body temperature 2024-06-21 08:00:00 37.11 Latanya [facility] Respiratory rate 2024-06-21 08:00:00 22 /min [facility] Body height 2024-06-21 08:00:00 157.5 cm [facility] Body weight 2024-06-21 08:00:00 108.41 kg [facility] BMI 2024-06-21 08:00:00 43.71 kg/m2 [facility] Oxygen saturation in Arterial blood by Pulse oximetry 2024-06-21 08:00:00 100 /min [facility] Heart rate 2024-06-15 06:22:00 87 /min [facility] Body temperature 2024-06-15 06:22:00 37.11 Latanya [facility] Oxygen saturation in Arterial blood by Pulse oximetry 2024-06-15 06:22:00 96 /min [facility] Systolic blood pressure 2024-06-15 06:00:00 137 mm[Hg] [facility] Diastolic blood pressure 2024-06-15 06:00:00 85 mm[Hg] [facility] Respiratory rate 2024-06-15 06:00:00 15 /min [facility] Body height 2024-06-15 03:23:00 157.5 cm [facility] Body weight 2024-06-15 03:23:00 109.997 kg [facility] BMI 2024-06-15 03:23:00 44.35 kg/m2 [facility] Body temperature 2024-06-07 08:35:48 36.89 Latanya [facility] Systolic blood pressure 2024-06-07 08:00:00 129 mm[Hg] [facility] Diastolic blood pressure 2024-06-07 08:00:00 108 mm[Hg] [facility] Heart rate 2024-06-07 08:00:00 69 /min [facility] Respiratory rate 2024-06-07 08:00:00 24 /min [facility] Oxygen saturation in Arterial blood by Pulse oximetry 2024-06-07 08:00:00 97 /min [facility] Body height 2024-06-07 04:02:00 157.5 cm [facility] Body weight 2024-06-07 04:02:00 105.688 kg [facility] BMI 2024-06-07 04:02:00 42.62 kg/m2 [facility] Systolic blood pressure 2024-05-19 19:32:00 130 mm[Hg] [facility] Diastolic blood pressure 2024-05-19 19:32:00 74 mm[Hg] [facility] Heart rate 2024-05-19 19:32:00 84 /min [facility] Respiratory rate 2024-05-19 19:32:00 18 /min [facility] Oxygen saturation in Arterial blood by Pulse oximetry 2024-05-19 19:32:00 99 /min [facility] Body temperature 2024-05-19 17:44:00 36.83 Latanya [facility] Body height 2024-05-19 17:44:00 157.5 cm [facility] Body weight 2024-05-19 17:44:00 108.863 kg [facility] BMI 2024-05-19 17:44:00 43.90 kg/m2 [facility] Systolic blood pressure 2024-05-18 16:21:00 126 mm[Hg] Kellee Seybold - External Diastolic blood pressure 2024-05-18 16:21:00 78 mm[Hg] Kellee ybold - External Heart rate 2024-05-18 16:21:00 95 /min Kellee Ariasybold - External Body temperature 2024-05-18 16:21:00 35.94 Latanya Kellee Ariasybold - External Respiratory rate 2024-05-18 16:21:00 15 /min Kellee Ariasybold - External Body height 2024-05-18 16:21:00 157.5 cm Kellee Ariasybold - External Body weight 2024-05-18 16:21:00 110.678 kg Kellee Ariasybold - External BMI 2024-05-18 16:21:00 44.63 kg/m2 Kellee Seybold - External Heart rate 2024-05-18 04:14:00 111 /min [facility] Body temperature 2024-05-18 04:14:00 37 Latanya [facility] Respiratory rate 2024-05-18 04:14:00 27 /min [facility] Oxygen saturation in Arterial blood by Pulse oximetry 2024-05-18 04:14:00 94 /min [facility] Systolic blood pressure 2024-05-18 04:00:00 141 mm[Hg] [facility] Diastolic blood pressure 2024-05-18 04:00:00 122 mm[Hg] [facility] Body height 2024-05-18 00:33:00 157.5 cm [facility] Body weight 2024-05-18 00:33:00 107.502 kg [facility] BMI 2024-05-18 00:33:00 43.35 kg/m2 [facility] Heart rate 2024-05-08 02:05:00 91 /min [facility] Respiratory rate 2024-05-08 02:05:00 22 /min [facility] Oxygen saturation in Arterial blood by Pulse oximetry 2024-05-08 02:05:00 95 /min [facility] Systolic blood pressure 2024-05-08 02:00:00 140 mm[Hg] [facility] Diastolic blood pressure 2024-05-08 02:00:00 86 mm[Hg] [facility] Body temperature 2024-05-07 23:46:00 36.78 Latanya [facility] Body height 2024-05-07 23:46:00 157.5 cm [facility] Body weight 2024-05-07 23:46:00 107.729 kg [facility] BMI 2024-05-07 23:46:00 43.44 kg/m2 [facility] Height 2024-04-10 16:28:00 157.475401 cm [facility] Weight 2024-04-10 16:28:00 104.970017 kg [facility] BMI (Body Mass Index) 2024-04-10 16:28:00 42.1 kg/m2 [facility] Systolic blood pressure 2024-04-09 01:30:00 134 mm[Hg] [facility] Diastolic blood pressure 2024-04-09 01:30:00 64 mm[Hg] [facility] Heart rate 2024-04-09 01:30:00 102 /min [facility] Body temperature 2024-04-09 01:30:00 36.61 Latanya [facility] Respiratory rate 2024-04-09 01:30:00 17 /min [facility] Oxygen saturation in Arterial blood by Pulse oximetry 2024-04-09 01:30:00 96 /min [facility] Body height 2024-04-08 22:31:00 157.5 cm [facility] Body weight 2024-04-08 22:31:00 104.327 kg [facility] BMI 2024-04-08 22:31:00 42.07 kg/m2 [facility] Body temperature 2023-12-13 14:10:00 36.72 Latanya Kellee [...] by Pulse oximetry 2023-10-29 18:12:00 97 /min eKllee Buckley - External Systolic blood pressure 2023-10-11 05:00:00 126 mm[Hg] [facility] Diastolic blood pressure 2023-10-11 05:00:00 87 mm[Hg] [facility] Heart rate 2023-10-11 05:00:00 94 /min [facility] Respiratory rate 2023-10-11 05:00:00 22 /min [facility] Oxygen saturation in Arterial blood by Pulse oximetry 2023-10-11 05:00:00 98 /min [facility] Body temperature 2023-10-11 02:28:00 37.22 Latanya [facility] Body height 2023-10-11 02:28:00 157.5 cm [facility] Body weight 2023-10-11 02:28:00 99.791 kg [facility] BMI 2023-10-11 02:28:00 40.24 kg/m2 [facility] Systolic blood pressure 2023-07-02 04:10:00 147 mm[Hg] [facility] Diastolic blood pressure 2023-07-02 04:10:00 89 mm[Hg] [facility] Heart rate 2023-07-02 04:10:00 73 /min [facility] Respiratory rate 2023-07-02 04:10:00 19 /min [facility] Oxygen saturation in Arterial blood by Pulse oximetry 2023-07-02 04:10:00 98 /min [facility] Body temperature 2023-07-02 01:47:00 36.78 Latanya [facility] Body height 2023-07-02 01:47:00 160 cm [facility] Body weight 2023-07-02 01:47:00 97.659 kg [facility] BMI 2023-07-02 01:47:00 38.14 kg/m2 [facility] Systolic blood pressure 2023-05-10 01:00:00 133 mm[Hg] [facility] Diastolic blood pressure 2023-05-10 01:00:00 81 mm[Hg] [facility] Heart rate 2023-05-10 01:00:00 64 /min [facility] Respiratory rate 2023-05-10 01:00:00 21 /min [facility] Oxygen saturation in Arterial blood by Pulse oximetry 2023-05-10 01:00:00 96 /min [facility] Body temperature 2023-05-09 22:43:00 36.67 Latanya [facility] Body height 2023-05-09 22:43:00 157.5 cm [facility] Body weight 2023-05-09 22:43:00 99.791 kg [facility] BMI 2023-05-09 22:43:00 40.24 kg/m2 [facility] Systolic blood pressure 2023-05-01 01:00:00 107 mm[Hg] [facility] Diastolic blood pressure 2023-05-01 01:00:00 80 mm[Hg] [facility] Heart rate 2023-05-01 01:00:00 80 /min [facility] Body temperature 2023-05-01 01:00:00 37.06 Latanya [facility] Respiratory rate 2023-05-01 01:00:00 16 /min [facility] Oxygen saturation in Arterial blood by Pulse oximetry 2023-05-01 01:00:00 98 /min [facility] Body height 2023-04-30 22:16:00 157.5 cm [facility] Body weight 2023-04-30 22:16:00 95.255 kg [facility] BMI 2023-04-30 22:16:00 38.41 kg/m2 [facility] Systolic blood pressure 2023-04-17 02:00:00 147 mm[Hg] [facility] Diastolic blood pressure 2023-04-17 02:00:00 83 mm[Hg] [facility] Heart rate 2023-04-17 02:00:00 90 /min [facility] Respiratory rate 2023-04-17 02:00:00 18 /min [facility] Oxygen saturation in Arterial blood by Pulse oximetry 2023-04-17 02:00:00 96 /min [facility] Body temperature 2023-04-17 01:33:00 36.78 Latanya [facility] Body height 2023-04-17 01:33:00 157.5 cm [facility] Body weight 2023-04-17 01:33:00 99.791 kg [facility] BMI 2023-04-17 01:33:00 40.24 kg/m2 [facility] Systolic blood pressure 2023-04-09 01:04:48 135 mm[Hg] [facility] Diastolic blood pressure 2023-04-09 01:04:48 84 mm[Hg] [facility] Heart rate 2023-04-09 01:04:48 67 /min [facility] Respiratory rate 2023-04-09 01:04:48 16 /min [facility] Oxygen saturation in Arterial blood by Pulse oximetry 2023-04-09 01:04:48 99 /min [facility] Body temperature 2023-04-08 22:16:00 36.67 Latanya [facility] Body height 2023-04-08 22:16:00 157.5 cm [facility] Body weight 2023-04-08 22:16:00 99.791 kg [facility] BMI 2023-04-08 22:16:00 40.24 kg/m2 [facility] Systolic blood pressure 2023-03-10 05:00:00 156 mm[Hg] [facility] Diastolic blood pressure 2023-03-10 05:00:00 94 mm[Hg] [facility] Heart rate 2023-03-10 05:00:00 75 /min [facility] Respiratory rate 2023-03-10 05:00:00 21 /min [facility] Oxygen saturation in Arterial blood by Pulse oximetry 2023-03-10 05:00:00 97 /min [facility] Body temperature 2023-03-10 01:20:00 36.72 Latanya [facility] Body height 2023-03-10 01:20:00 157.5 cm [facility] Body weight 2023-03-10 01:20:00 100.381 kg [facility] BMI 2023-03-10 01:20:00 40.48 kg/m2 [facility] Systolic blood pressure 2023-03-02 06:00:00 126 mm[Hg] [facility] Diastolic blood pressure 2023-03-02 06:00:00 79 mm[Hg] [facility] Heart rate 2023-03-02 06:00:00 69 /min [facility] Respiratory rate 2023-03-02 06:00:00 23 /min [facility] Oxygen saturation in Arterial blood by Pulse oximetry 2023-03-02 06:00:00 94 /min [facility] Body temperature 2023-03-02 00:34:00 37.28 Latanya [facility] Body height 2023-03-02 00:34:00 157.5 cm [facility] Body weight 2023-03-02 00:34:00 99.791 kg [facility] BMI 2023-03-02 00:34:00 40.24 kg/m2 [facility] Systolic blood pressure 2023-02-18 06:46:00 126 mm[Hg] [facility] Diastolic blood pressure 2023-02-18 06:46:00 77 mm[Hg] [facility] Heart rate 2023-02-18 06:46:00 79 /min [facility] Respiratory rate 2023-02-18 06:46:00 16 /min [facility] Oxygen saturation in Arterial blood by Pulse oximetry 2023-02-18 06:46:00 95 /min [facility] Body temperature 2023-02-18 03:55:00 36.72 Latanya [facility] Body height 2023-02-18 03:55:00 157.5 cm [facility] Body weight 2023-02-18 03:55:00 102.331 kg [facility] BMI 2023-02-18 03:55:00 41.26 kg/m2 [facility] Systolic blood pressure 2023-02-17 16:20:00 113 mm[Hg] [facility] Diastolic blood pressure 2023-02-17 16:20:00 65 mm[Hg] [facility] Heart rate 2023-02-17 16:20:00 65 /min [facility] Body temperature 2023-02-17 16:20:00 36.83 Latanya [facility] Respiratory rate 2023-02-17 16:20:00 16 /min [facility] Oxygen saturation in Arterial blood by Pulse oximetry 2023-02-17 16:20:00 97 /min [facility] Body weight 2023-02-17 08:50:00 99.973 kg [facility] BMI 2023-02-17 08:50:00 40.31 kg/m2 [facility] Body height 2023-02-16 01:19:00 157.5 cm [facility] Systolic blood pressure 2022-01-10 01:24:00 120 mm[Hg] [facility] Diastolic blood pressure 2022-01-10 01:24:00 76 mm[Hg] [facility] Heart rate 2022-01-10 01:24:00 73 /min [facility] Respiratory rate 2022-01-10 01:24:00 16 /min [facility] Oxygen saturation in Arterial blood by Pulse oximetry 2022-01-10 01:24:00 96 /min [facility] Body weight 2022-01-09 21:39:00 104.327 kg [facility] BMI 2022-01-09 21:39:00 42.07 kg/m2 [facility] Systolic blood pressure 2021-12-14 07:22:00 121 mm[Hg] [facility] Diastolic blood pressure 2021-12-14 07:22:00 86 mm[Hg] [facility] Heart rate 2021-12-14 07:22:00 80 /min [facility] Respiratory rate 2021-12-14 07:22:00 17 /min [facility] Oxygen saturation in Arterial blood by Pulse oximetry 2021-12-14 07:22:00 96 /min [facility] Body temperature 2021-12-14 03:06:00 36.72 Latanya [facility] Body height 2021-12-14 03:06:00 157.5 cm [facility] Body weight 2021-12-14 03:06:00 95.255 kg [facility] BMI 2021-12-14 03:06:00 38.41 kg/m2 [facility] Systolic blood pressure 2021-11-12 04:15:00 112 mm[Hg] [facility] Diastolic blood pressure 2021-11-12 04:15:00 75 mm[Hg] [facility] Heart rate 2021-11-12 04:15:00 92 /min [facility] Body temperature 2021-11-12 04:15:00 36.44 Latanya [facility] Respiratory rate 2021-11-12 04:15:00 18 /min [facility] Oxygen saturation in Arterial blood by Pulse oximetry 2021-11-12 04:15:00 98 /min [facility] Body height 2021-11-12 00:41:00 157.5 cm [facility] Body weight 2021-11-12 00:41:00 95.255 kg [facility] BMI 2021-11-12 00:41:00 38.41 kg/m2 [facility] Systolic blood pressure 2021-09-12 01:31:00 142 mm[Hg] [facility] Diastolic blood pressure 2021-09-12 01:31:00 80 mm[Hg] [facility] Heart rate 2021-09-12 01:31:00 78 /min [facility] Body temperature 2021-09-12 01:31:00 36.72 Latanya [facility] Respiratory rate 2021-09-12 01:31:00 18 /min [facility] Body height 2021-09-12 01:31:00 157.5 cm [facility] Body weight 2021-09-12 01:31:00 99.791 kg [facility] BMI 2021-09-12 01:31:00 40.24 kg/m2 [facility] Oxygen saturation in Arterial blood by Pulse oximetry 2021-09-12 01:31:00 97 /min [facility] Systolic blood pressure 2021-08-15 08:20:00 120 mm[Hg] [facility] Diastolic blood pressure 2021-08-15 08:20:00 74 mm[Hg] [facility] Heart rate 2021-08-15 08:20:00 69 /min [facility] Respiratory rate 2021-08-15 08:20:00 20 /min [facility] Oxygen saturation in Arterial blood by Pulse oximetry 2021-08-15 08:20:00 96 /min [facility] Body temperature 2021-08-15 05:34:00 36.22 Latanya [facility] Body height 2021-08-15 05:34:00 157.5 cm [facility] Body weight 2021-08-15 05:34:00 99.791 kg [facility] BMI 2021-08-15 05:34:00 40.24 kg/m2 [facility] Systolic blood pressure 2021-05-28 10:00:00 122 mm[Hg] [facility] Diastolic blood pressure 2021-05-28 10:00:00 78 mm[Hg] [facility] Heart rate 2021-05-28 10:00:00 75 /min [facility] Respiratory rate 2021-05-28 10:00:00 20 /min [facility] Oxygen saturation in Arterial blood by Pulse oximetry 2021-05-28 10:00:00 99 /min [facility] Body temperature 2021-05-28 05:21:00 36.11 Latanya [facility] Body height 2021-05-28 05:21:00 157.5 cm [facility] Body weight 2021-05-28 05:21:00 99.791 kg [facility] BMI 2021-05-28 05:21:00 40.24 kg/m2 [facility] Systolic blood pressure 2021-04-08 21:55:00 110 mm[Hg] [facility] Diastolic blood pressure 2021-04-08 21:55:00 80 mm[Hg] [facility] Heart rate 2021-04-08 21:55:00 70 /min [facility] Body temperature 2021-04-08 21:55:00 36.28 Latanya [facility] Respiratory rate 2021-04-08 21:55:00 16 /min [facility] Oxygen saturation in Arterial blood by Pulse oximetry 2021-04-08 21:55:00 94 /min [facility] Body height 2021-04-08 03:00:00 157.5 cm [facility] Body weight 2021-04-08 03:00:00 105.688 kg [facility] BMI 2021-04-08 03:00:00 42.62 kg/m2 [facility] Systolic blood pressure 2021-01-12 09:00:00 147 mm[Hg] [facility] Diastolic blood pressure 2021-01-12 09:00:00 71 mm[Hg] [facility] Heart rate 2021-01-12 09:00:00 103 /min [facility] Respiratory rate 2021-01-12 09:00:00 18 /min [facility] Oxygen saturation in Arterial blood by Pulse oximetry 2021-01-12 09:00:00 97 /min [facility] Body temperature 2021-01-12 07:48:00 37.06 Latanya [facility] Body height 2021-01-12 07:48:00 157.5 cm [facility] Body weight 2021-01-12 07:48:00 102.513 kg [facility] BMI 2021-01-12 07:48:00 41.34 kg/m2 [facility] Systolic blood pressure 2020-12-11 01:30:00 136 mm[Hg] [facility] Diastolic blood pressure 2020-12-11 01:30:00 88 mm[Hg] [facility] Heart rate 2020-12-11 01:30:00 99 /min [facility] Respiratory rate 2020-12-11 01:30:00 28 /min [facility] Oxygen saturation in Arterial blood by Pulse oximetry 2020-12-11 01:30:00 97 /min [facility] Body temperature 2020-12-10 22:11:00 36.78 Latanya [facility] Body weight 2020-12-10 22:11:00 99.791 kg [facility] BMI 2020-12-10 22:11:00 40.24 kg/m2 [facility] Systolic blood pressure 2020-12-04 21:30:00 126 mm[Hg] [facility] Diastolic blood pressure 2020-12-04 21:30:00 79 mm[Hg] [facility] Heart rate 2020-12-04 21:30:00 91 /min [facility] Respiratory rate 2020-12-04 21:30:00 20 /min [facility] Oxygen saturation in Arterial blood by Pulse oximetry 2020-12-04 21:30:00 96 /min [facility] Body temperature 2020-12-04 19:49:00 37.06 Latanya [facility] Body height 2020-12-04 19:49:00 157.5 cm [facility] Body weight 2020-12-04 19:49:00 99.791 kg [facility] BMI 2020-12-04 19:49:00 40.24 kg/m2 [facility] Systolic blood pressure 2020-11-04 01:42:00 142 mm[Hg] [facility] Diastolic blood pressure 2020-11-04 01:42:00 100 mm[Hg] [facility] Heart rate 2020-11-04 01:42:00 109 /min [facility] Body temperature 2020-11-04 01:42:00 36.78 Latanya [facility] Respiratory rate 2020-11-04 01:42:00 20 /min [facility] Body weight 2020-11-04 01:42:00 99.791 kg [facility] BMI 2020-11-04 01:42:00 40.24 kg/m2 [facility] Oxygen saturation in Arterial blood by Pulse oximetry 2020-11-04 01:42:00 98 /min [facility] Systolic blood pressure 2020-09-17 15:52:00 138 mm[Hg] [facility] Diastolic blood pressure 2020-09-17 15:52:00 94 mm[Hg] [facility] Heart rate 2020-09-17 15:52:00 98 /min [facility] Body temperature 2020-09-17 15:52:00 36.94 Latanya [facility] Respiratory rate 2020-09-17 15:52:00 20 /min [facility] Body weight 2020-09-17 15:52:00 95.255 kg [facility] BMI 2020-09-17 15:52:00 38.41 kg/m2 [facility] Oxygen saturation in Arterial blood by Pulse oximetry 2020-09-17 15:52:00 97 /min [facility] Systolic blood pressure 2020-09-17 15:52:00 138 mm[Hg] [facility] Diastolic blood pressure 2020-09-17 15:52:00 94 mm[Hg] [facility] Heart rate 2020-09-17 15:52:00 98 /min [facility] Body temperature 2020-09-17 15:52:00 36.94 [facility] [place] Respiratory rate 2020-09-17 15:52:00 20 /min [facility] Body weight 2020-09-17 15:52:00 95.255 kg [facility] BMI 2020-09-17 15:52:00 38.41 kg/m2 [facility] Oxygen saturation in Arterial blood by Pulse oximetry 2020-09-17 15:52:00 97 /min [facility] Systolic blood pressure 2020-09-07 06:35:00 123 mm[Hg] [facility] Diastolic blood pressure 2020-09-07 06:35:00 56 mm[Hg] [facility] Heart rate 2020-09-07 06:35:00 97 /min [facility] Body temperature 2020-09-07 06:35:00 36.28 Latanya [facility] [place] Respiratory rate 2020-09-07 06:35:00 18 /min [facility] Body weight 2020-09-07 06:35:00 99.791 kg [facility] BMI 2020-09-07 06:35:00 40.24 kg/m2 [facility] Oxygen saturation in Arterial blood by Pulse oximetry 2020-09-07 06:35:00 98 /min [facility] Systolic blood pressure 2020-09-07 06:35:00 123 mm[Hg] [facility] Diastolic blood pressure 2020-09-07 06:35:00 56 mm[Hg] [facility] Heart rate 2020-09-07 06:35:00 97 /min [facility] Body temperature 2020-09-07 06:35:00 36.28 Latanya [facility] [place] Respiratory rate 2020-09-07 06:35:00 18 /min [facility] Body weight 2020-09-07 06:35:00 99.791 kg [facility] BMI 2020-09-07 06:35:00 40.24 kg/m2 [facility] Oxygen saturation in Arterial blood by Pulse oximetry 2020-09-07 06:35:00 98 /min [facility] Systolic blood pressure 2020-08-28 09:00:00 132 mm[Hg] [facility] Diastolic blood pressure 2020-08-28 09:00:00 87 mm[Hg] [facility] Heart rate 2020-08-28 09:00:00 90 /min [facility] Respiratory rate 2020-08-28 09:00:00 20 /min [facility] Oxygen saturation in Arterial blood by Pulse oximetry 2020-08-28 09:00:00 97 /min [facility] Body temperature 2020-08-28 07:59:00 36.72 Latanya [facility] Body height 2020-08-28 07:59:00 157.5 cm [facility] Body weight 2020-08-28 07:59:00 99.791 kg [facility] BMI 2020-08-28 07:59:00 40.24 kg/m2 [facility] Systolic blood pressure 2020-08-28 09:00:00 132 mm[Hg] [facility] Diastolic blood pressure 2020-08-28 09:00:00 87 mm[Hg] [facility] Heart rate 2020-08-28 09:00:00 90 /min [facility] Respiratory rate 2020-08-28 09:00:00 20 /min [facility] Oxygen saturation in Arterial blood by Pulse oximetry 2020-08-28 09:00:00 97 /min [facility] Body temperature 2020-08-28 07:59:00 36.72 Latanya [facility] Body height 2020-08-28 07:59:00 157.5 cm [facility] Body weight 2020-08-28 07:59:00 99.791 kg [facility] BMI 2020-08-28 07:59:00 40.24 kg/m2 [facility] Systolic blood pressure 2020-08-14 19:40:00 135 mm[Hg] [facility] Diastolic blood pressure 2020-08-14 19:40:00 100 mm[Hg] [facility] Heart rate 2020-08-14 19:40:00 68 /min [facility] Body temperature 2020-08-14 19:40:00 37.11 Latanya [facility] Respiratory rate 2020-08-14 19:40:00 19 /min [facility] Oxygen saturation in Arterial blood by Pulse oximetry 2020-08-14 19:40:00 99 /min [facility] Body height 2020-08-14 17:41:00 157.5 cm [facility] Body weight 2020-08-14 17:41:00 99.791 kg [facility] BMI 2020-08-14 17:41:00 40.24 kg/m2 [facility] Systolic blood pressure 2020-08-14 19:40:00 135 mm[Hg] [facility] Diastolic blood pressure 2020-08-14 19:40:00 100 mm[Hg] [facility] Heart rate 2020-08-14 19:40:00 68 /min [facility] Body temperature 2020-08-14 19:40:00 37.11 Latanya [facility] Respiratory rate 2020-08-14 19:40:00 19 /min [facility] Oxygen saturation in Arterial blood by Pulse oximetry 2020-08-14 19:40:00 99 /min [facility] Body height 2020-08-14 17:41:00 157.5 cm [facility] Body weight 2020-08-14 17:41:00 99.791 kg [facility] BMI 2020-08-14 17:41:00 40.24 kg/m2 [facility] Systolic blood pressure 2020-08-11 04:00:00 106 mm[Hg] [facility] Diastolic blood pressure 2020-08-11 04:00:00 92 mm[Hg] [facility] Heart rate 2020-08-11 04:00:00 90 /min [facility] Respiratory rate 2020-08-11 04:00:00 16 /min [facility] Oxygen saturation in Arterial blood by Pulse oximetry 2020-08-11 04:00:00 99 /min [facility] Body temperature 2020-08-11 03:12:56 37.72 Latanya [facility] Body height 2020-08-11 00:19:00 157.5 cm [facility] Body weight 2020-08-11 00:19:00 99.791 kg [facility] BMI 2020-08-11 00:19:00 40.24 kg/m2 [facility] Systolic blood pressure 2020-08-11 04:00:00 106 mm[Hg] [facility] Diastolic blood pressure 2020-08-11 04:00:00 92 mm[Hg] [facility] Heart rate 2020-08-11 04:00:00 90 /min [facility] Respiratory rate 2020-08-11 04:00:00 16 /min [facility] Oxygen saturation in Arterial blood by Pulse oximetry 2020-08-11 04:00:00 99 /min [facility] Body temperature 2020-08-11 03:12:56 37.72 Latanya [facility] Body height 2020-08-11 00:19:00 157.5 cm [facility] Body weight 2020-08-11 00:19:00 99.791 kg [facility] BMI 2020-08-11 00:19:00 40.24 kg/m2 [facility] Systolic blood pressure 2020-08-07 13:16:00 100 mm[Hg] [facility] Diastolic blood pressure 2020-08-07 13:16:00 69 mm[Hg] [facility] Heart rate 2020-08-07 13:16:00 99 /min [facility] Body temperature 2020-08-07 13:16:00 36.67 Latanya [facility] Respiratory rate 2020-08-07 13:16:00 18 /min [facility] Body weight 2020-08-07 13:16:00 95.255 kg [facility] BMI 2020-08-07 13:16:00 38.41 kg/m2 [facility] Oxygen saturation in Arterial blood by Pulse oximetry 2020-08-07 13:16:00 99 /min [facility] Systolic blood pressure 2020-08-07 13:16:00 100 mm[Hg] [facility] Diastolic blood pressure 2020-08-07 13:16:00 69 mm[Hg] [facility] Heart rate 2020-08-07 13:16:00 99 /min [facility] Body temperature 2020-08-07 13:16:00 36.67 Latanya [facility] Respiratory rate 2020-08-07 13:16:00 18 /min [facility] Body weight 2020-08-07 13:16:00 95.255 kg [facility] BMI 2020-08-07 13:16:00 38.41 kg/m2 [facility] Oxygen saturation in Arterial blood by Pulse oximetry 2020-08-07 13:16:00 99 /min [facility] Systolic blood pressure 2020-07-01 02:00:00 136 mm[Hg] [facility] Diastolic blood pressure 2020-07-01 02:00:00 85 mm[Hg] [facility] Heart rate 2020-07-01 02:00:00 73 /min [facility] Respiratory rate 2020-07-01 02:00:00 20 /min [facility] Oxygen saturation in Arterial blood by Pulse oximetry 2020-07-01 02:00:00 97 /min [facility] Body temperature 2020-06-30 23:36:00 36.56 Latanya [facility] Body height 2020-06-30 23:36:00 157.5 cm [facility] Body weight 2020-06-30 23:36:00 95.255 kg [facility] BMI 2020-06-30 23:36:00 38.41 kg/m2 [facility] Systolic blood pressure 2020-07-01 02:00:00 136 mm[Hg] [facility] Diastolic blood pressure 2020-07-01 02:00:00 85 mm[Hg] [facility] Heart rate 2020-07-01 02:00:00 73 /min [facility] Respiratory rate 2020-07-01 02:00:00 20 /min [facility] Oxygen saturation in Arterial blood by Pulse oximetry 2020-07-01 02:00:00 97 /min [facility] Body temperature 2020-06-30 23:36:00 36.56 Latanya [facility] Body height 2020-06-30 23:36:00 157.5 cm [facility] Body weight 2020-06-30 23:36:00 95.255 kg [facility] BMI 2020-06-30 23:36:00 38.41 kg/m2 [facility] Systolic blood pressure 2020-06-28 21:57:00 151 mm[Hg] [facility] Diastolic blood pressure 2020-06-28 21:57:00 88 mm[Hg] [facility] Heart rate 2020-06-28 21:57:00 94 /min [facility] Body temperature 2020-06-28 21:57:00 37.78 Latanya [facility] Respiratory rate 2020-06-28 21:57:00 16 /min [facility] Body height 2020-06-28 21:57:00 157.5 cm [facility] Body weight 2020-06-28 21:57:00 95.255 kg [facility] BMI 2020-06-28 21:57:00 38.41 kg/m2 [facility] Oxygen saturation in Arterial blood by Pulse oximetry 2020-06-28 21:57:00 96 /min [facility] Systolic blood pressure 2020-06-28 21:57:00 151 mm[Hg] [facility] Diastolic blood pressure 2020-06-28 21:57:00 88 mm[Hg] [facility] Heart rate 2020-06-28 21:57:00 94 /min [facility] Body temperature 2020-06-28 21:57:00 37.78 Latanya [facility] Respiratory rate 2020-06-28 21:57:00 16 /min [facility] Body height 2020-06-28 21:57:00 157.5 cm [facility] Body weight 2020-06-28 21:57:00 95.255 kg [facility] BMI 2020-06-28 21:57:00 38.41 kg/m2 [facility] Oxygen saturation in Arterial blood by Pulse oximetry 2020-06-28 21:57:00 96 /min [facility] Systolic blood pressure 2020-06-13 03:40:00 122 mm[Hg] [facility] Diastolic blood pressure 2020-06-13 03:40:00 78 mm[Hg] [facility] Heart rate 2020-06-13 03:40:00 90 /min [facility] Respiratory rate 2020-06-13 03:40:00 18 /min [facility] Oxygen saturation in Arterial blood by Pulse oximetry 2020-06-13 03:40:00 94 /min [facility] Body temperature 2020-06-12 23:39:00 37.22 Latanya [facility] Body weight 2020-06-12 23:39:00 97.07 kg [facility] BMI 2020-06-12 23:39:00 39.14 kg/m2 [facility] Systolic blood pressure 2020-06-13 03:40:00 122 mm[Hg] [facility] Diastolic blood pressure 2020-06-13 03:40:00 78 mm[Hg] [facility] Heart rate 2020-06-13 03:40:00 90 /min [facility] Respiratory rate 2020-06-13 03:40:00 18 /min [facility] Oxygen saturation in Arterial blood by Pulse oximetry 2020-06-13 03:40:00 94 /min [facility] Body temperature 2020-06-12 23:39:00 37.22 Latanya [facility] Body weight 2020-06-12 23:39:00 97.07 kg [facility] BMI 2020-06-12 23:39:00 39.14 kg/m2 [facility] Heart rate 2020-05-17 00:40:00 82 /min [facility] Respiratory rate 2020-05-17 00:40:00 18 /min [facility] Oxygen saturation in Arterial blood by Pulse oximetry 2020-05-17 00:40:00 95 /min [facility] Systolic blood pressure 2020-05-17 00:00:00 137 mm[Hg] [facility] Diastolic blood pressure 2020-05-17 00:00:00 93 mm[Hg] [facility] Body temperature 2020-05-16 23:17:00 37.61 Latanya [facility] Body weight 2020-05-16 23:17:00 97.07 kg [facility] BMI 2020-05-16 23:17:00 39.14 kg/m2 [facility] Heart rate 2020-05-17 00:40:00 82 /min [facility] Respiratory rate 2020-05-17 00:40:00 18 /min [facility] Oxygen saturation in Arterial blood by Pulse oximetry 2020-05-17 00:40:00 95 /min [facility] Systolic blood pressure 2020-05-17 00:00:00 137 mm[Hg] [facility] Diastolic blood pressure 2020-05-17 00:00:00 93 mm[Hg] [facility] Body temperature 2020-05-16 23:17:00 37.61 Latanya [facility] Body weight 2020-05-16 23:17:00 97.07 kg [facility] BMI 2020-05-16 23:17:00 39.14 kg/m2 [facility] Systolic blood pressure 2020-05-15 08:50:00 131 mm[Hg] [facility] Diastolic blood pressure 2020-05-15 08:50:00 80 mm[Hg] [facility] Heart rate 2020-05-15 08:50:00 70 /min [facility] Respiratory rate 2020-05-15 08:50:00 18 /min [facility] Oxygen saturation in Arterial blood by Pulse oximetry 2020-05-15 08:50:00 97 /min [facility] Body temperature 2020-05-15 05:29:00 36.44 Latanya [facility] Body height 2020-05-15 05:29:00 157.5 cm [facility] Body weight 2020-05-15 05:29:00 97.07 kg Simultaneous filing. User may not have seen previous data. [facility] BMI 2020-05-15 05:29:00 39.14 kg/m2 [facility] Systolic blood pressure 2020-05-15 08:50:00 131 mm[Hg] [facility] Diastolic blood pressure 2020-05-15 08:50:00 80 mm[Hg] [facility] Heart rate 2020-05-15 08:50:00 70 /min [facility] Respiratory rate 2020-05-15 08:50:00 18 /min [facility] Oxygen saturation in Arterial blood by Pulse oximetry 2020-05-15 08:50:00 97 /min [facility] Body temperature 2020-05-15 05:29:00 36.44 Latanya [facility] Body height 2020-05-15 05:29:00 157.5 cm [facility] Body weight 2020-05-15 05:29:00 97.07 kg Simultaneous filing. User may not have seen previous data. [facility] BMI 2020-05-15 05:29:00 39.14 kg/m2 [facility] Procedures Procedure Date / Time Performed Performing Clinician Source CT ABDOMEN PELVIS W CONTRAST 2024-07-04 05:47:25 Sandy Garcia [facility] POCT TEST 2024-07-04 05:33:00 Ross Garcia [facility] LIPASE 2024-07-04 03:23:00 Sandy Garcia [facility] COMP. METABOLIC PANEL ([id number]) 2024-07-04 03:23:00 Sandy Garcia [facility] CBC WITH DIFF 2024-07-04 03:23:00 Sandy Garcia [facility] URINALYSIS 2024-07-04 03:23:00 Sandy Garcia [facility] CT ABDOMEN PELVIS W CONTRAST 2024-06-15 05:33:59 Sandy Garcia [facility] URINALYSIS 2024-06-15 04:18:00 Sandy Garcia [facility] LIPASE 2024-06-15 04:14:00 Sandy Garcia [facility] TEST, SERUM 2024-06-15 04:14:00 Laney Garcia [facility] TROPONIN I 2024-06-15 04:14:00 Sandy Garcia [facility] COMP. METABOLIC PANEL ([id number]) 2024-06-15 [facility]24-06-15 04:14:00 Sandy Garcia [facility] TROPONIN I 2024-06-07 07:19:00 Olivia Garcia [facility] XR CHEST 1 VW 2024-06-07 05:38:37 Olivia Garcia [facility] POCT TEST 2024-06-07 05:19:00 Olivia Garcia [facility] URINE DRUG (IMMUNOASSAY) - COMPREHENSIVE DRUG SCREEN 2024-06-07 05:18:00 Olivia Garcia [facility] TROPONIN I 2024-06-07 04:10:00 Olivia Garcia [facility] COMP. METABOLIC PANEL ([id number]) 2024-06-07 04:10:00 Olivia Garcia [facility] CBC WITH DIFF 2024-06-07 04:10:00 Olivia Garcia [facility] CT HEAD WO CONTRAST 2024-05-19 18:22:43 Annalise Wright [facility] XR ELBOW <3 VW RIGHT 2024-05-18 02:32:12 [facility] FOREARM 2 VW RIGHT 2024-05-18 02:32:12 Alesha Moralez [facility] XR HAND 3+ VW RIGHT 2024-05-18 02:32:12 Alesha Casanova [facility] CT CERVICAL SPINE WO CONTRAST 2024-05-18 02:11:45 Alesha Roy Radha [facility] CT MAXILLOFACIAL/MANDIBLE WO CONTRAST 2024-05-18 02:11:45 Alesha Roy [facility] POCT TEST 2024-05-08 02:00:00 Saleem Edward [facility] LIPASE 2024-05-08 00:31:00 Saleem Edward [facility] MAGNESIUM 2024-05-08 00:31:00 Wagner, K Eleni [facility] TROPONIN I 2024-05-08 00:31:00 Saleem Edward Eleni [facility] COMP. METABOLIC PANEL ([id number]) 2024-05-08 00:31:00 Saleem Edward [facility] CBC WITH DIFF 2024-05-08 00:31:00 Saleem Edward Eleni [facility] URINALYSIS 2024-05-08 00:31:00 Saleem Edward Eleni [facility] CT ABDOMEN PELVIS WO CONTRAST 2024-04-08 23:45:15 Sophie Rojoherine [facility] POCT TEST 2024-04-08 23:01:00 Judy Rojo [facility] LIPASE 2024-04-08 22:47:00 Sophie Rojoherine [facility] COMP. METABOLIC PANEL ([id number]) 2024-04-08 22:47:00 Sophie Rojoherine [facility] CBC WITH DIFF 2024-04-08 22:47:00 Sophie Rojoherine [facility] URINALYSIS 2024-04-08 22:47:00 Florentino [facility] CT ABDOMEN PELVIS W CONTRAST 2023-10-11 04:08:24 Olivia Garcia [facility] POCT TEST 2023-10-11 03:40:00 Olivia Garcia [facility] LIPASE 2023-10-11 03:25:00 Olivia Garcia [facility] COMP. METABOLIC PANEL ([id number]) 2023-10-11 03:25:00 Olivia Garcia [facility] CBC WITH DIFF 2023-10-11 03:25:00 Olivia Garcia [facility] URINALYSIS 2023-10-11 03:25:00 Olivia Garcia [facility] XR KUB 2023-07-02 03:34:07 Roberto Richards [facility] POCT TEST 2023-07-02 02:30:00 Alberta Richards [facility] LIPASE 2023-07-02 02:05:00 Roberto Richards [facility] COMP. METABOLIC PANEL ([id number]) 2023-07-02 02:05:00 Roberto Richards [facility] CBC WITH DIFF 2023-07-02 02:05:00 Roberto Richards [facility] URINALYSIS 2023-07-02 02:05:00 Roberto Richards [facility] URINE DRUG (IMMUNOASSAY) - COMPREHENSIVE DRUG SCREEN W/O REFLEX 2023-07-02 02:05:00 Roberto Richards [facility] CONSENT/REFUSAL FOR DIAGNOSIS AND TREATMENT 2023-07-02 01:43:05 Doctor Unassigned, [place] [facility] LIPASE 2023-05-09 22:47:00 [facility] COMP. METABOLIC PANEL ([id number]) 2023-05-09 22:47:00 Narayan Narvaez [facility] CBC WITH DIFF 2023-05-09 22:47:00 Narayan Narvaez [facility] CONSENT/REFUSAL FOR DIAGNOSIS AND TREATMENT 2023-05-09 22:32:48 Doctor Unassigned, [place] [facility] CT ABDOMEN PELVIS W CONTRAST 2023-04-30 23:47:56 Narayan Narvaez [facility] COMP. METABOLIC PANEL ([id number]) 2023-04-30 23:08:00 Narayan Narvaez [facility] CBC WITH DIFF 2023-04-30 23:08:00 Narayan Narvaez [facility] POCT TEST 2023-04-30 22:59:00 Jaquan Narvaez [facility] URINALYSIS 2023-04-30 22:57:00 Narayan Narvaez [facility] CONSENT/REFUSAL FOR DIAGNOSIS AND TREATMENT 2023-04-30 22:14:38 Doctor Unassigned, [place] [facility] XR ABDOMEN ACUTE SERIES 2023-04-17 02:13:44 Do minal Richards [facility] POCT TEST 2023-04-17 02:11:00 Alberta Richards [facility] LIPASE 2023-04-17 02:04:00 Roberto Richards [facility] TROPONIN I 2023-04-17 02:04:00 [facility] COMP. METABOLIC PANEL ([id number]) 2023-04-17 02:04:00 Roberto Richards [facility] CBC WITH DIFF 2023-04-17 02:04:00 Roberto iRchards [facility] PROTHROMBIN TIME / INR 2023-04-17 02:04:00 Jalen Richards [facility] ACTIVATED PARTIAL THRMPLAS MARCIO 2023-04-17 02:04:00 Roberto Richards [facility] URINALYSIS 2023-04-17 02:04:00 Roberto Richards [facility] N-TERMINAL PRO-BNP 2023-04-17 02:04:00 Roberto Richards [facility] URINE DRUG (IMMUNOASSAY) - COMPREHENSIVE DRUG SCREEN W/O REFLEX 2023-04-17 02:04:00 Roberto Richards [facility] CONSENT/REFUSAL FOR DIAGNOSIS AND TREATMENT 2023-04-17 01:22:36 Doctor Unassigned, [place] [facility] URINALYSIS 2023-04-09 01:02:00 Saleem Edward [facility] LIPASE 2023-04-08 23:15:00 Saleem Edward [facility] MAGNESIUM 2023-04-08 23:15:00 Saleem Edward [facility] TROPONIN I 2023-04-08 23:15:00 Saleem Edward [facility] COMP. METABOLIC PANEL ([id number]) 2023-04-08 23:15:00 Saleem Edward [facility] CBC WITH DIFF 2023-04-08 23:15:00 Saleem Edward [facility] CONSENT/REFUSAL FOR DIAGNOSIS AND TREATMENT 2023-04-08 21:57:42 Doctor Unassigned, [place] [facility] CT ABDOMEN PELVIS W CONTRAST 2023-03-10 03:38:58 Roberto Richards [facility] POCT TEST 2023-03-10 02:51:00 Alberta Richards [facility] URINALYSIS 2023-03-10 01:49:00 Roberto Richards [facility] LIPASE 2023-03-10 01:46:00 Roberto Richards [facility] COMP. METABOLIC PANEL ([id number]) 2023-03-10 01:46:00 Roberto Richards [facility] CBC WITH DIFF 2023-03-10 01:46:00 Roberto Richards [facility] CONSENT/REFUSAL FOR DIAGNOSIS AND TREATMENT 2023-03-10 01:36:24 Doctor Unassigned, [place] [facility] CONSENT/REFUSAL FOR DIAGNOSIS AND TREATMENT 2023-03-10 01:14:40 Doctor Unassigned, [place] [facility] CT ABDOMEN PELVIS W CONTRAST 2023-03-02 05:16:35 Olivia Garcia [facility] POCT TEST 2023-03-02 03:26:00 Olivia Garcia [facility] LIPASE 2023-03-02 03:23:00 Olivia Garcia [facility] COMP. METABOLIC PANEL ([id number]) 2023-03-02 03:23:00 Olivia Garcia [facility] CBC WITH DIFF 2023-03-02 03:23:00 Olivia Garcia [facility] URINALYSIS 2023-03-02 03:23:00 Olivia Garcia [facility] CONSENT/REFUSAL FOR DIAGNOSIS AND TREATMENT 2023-03-02 00:22:44 Doctor Unassigned, [place] [facility] CONSENT/REFUSAL FOR DIAGNOSIS AND TREATMENT 2023-02-18 03:44:46 Doctor Unassigned, [place] [facility] LIPASE 2023-02-17 09:28:00 [facility] (94674) (ALB,T.PRO,BILI T,BU/BC,ALT,AST,ALK PHOS) 2023-02-17 09:28:00 Jesús Montero [facility] BASIC METABOLIC PANEL (NA, K, CL, CO2, GLUCOSE, BUN, CREATININE, CA) 2023-02-17 09:28:00 Jesús Montero [facility] CBC WITH DIFF 2023-02-17 09:28:00 Kylah Jesús [facility] LIPASE 2023-02-16 18:24:00 Kylah Jesúsguerrero [facility] HEPATIC FUNCTION PANEL ([id number]) (ALB,T.PRO,BILI T,BU/BC,ALT,AST,ALK PHOS) 2023-02-16 18:24:00 Kylah [facility] BASIC METABOLIC PANEL (NA, K, CL, CO2, GLUCOSE, BUN, CREATININE, CA) 2023-02-16 18:24:00 Kylah [facility] CBC WITH DIFF 2023-02-16 18:23:00 [facility] CT ABDOMEN PELVIS W CONTRAST 2023-02-15 23:29:00 Leeanne Wise [facility] LIPASE 2023-02-15 21:45:00 Leeanne Wise [facility] COMP. METABOLIC PANEL ([id number]) 2023-02-15 21:45:00 Leeanne Wise [facility] CBC WITH DIFF 2023-02-15 21:45:00 Leeanne Wise [facility] D-DIMER 2023-02-15 19:55:00 Leeanne Wise [facility] URINALYSIS 2023-02-15 19:50:00 Leeanne Wise [facility] RAPID INFLUENZA A/B 2023-02-15 19:50:00 Leeanne Wise [facility] COVID-19 (ID NOW RAPID TESTING) 2023-02-15 19:50:00 Leeanne Wise [facility] XR CHEST 1 VW 2023-02-15 19:38:00 Leeanne Wise [facility] ASSIGNMENT OF BENEFITS 2023-02-15 19:26:58 Docto r Unassigned, [place] [facility] HB ECG ROUTINE & RHYTHM STRIP 2023-02-15 19:07:40 Leeanne Wise [facility] NOTICE OF PRIVACY PRACTICES 2023-02-15 18:24:07 Doctor Unassigned, [place] [facility] CONSENT/REFUSAL FOR DIAGNOSIS AND TREATMENT 2023-02-15 18:23:04 Doctor Unassigned, [place] [facility] TROPONIN I 2022-01-10 00:32:00 Melida Longoria [facility] TROPONIN I 2022-01-09 22:17:00 Melida Longoria [facility] BASIC METABOLIC PANEL (NA, K, CL, CO2, GLUCOSE, BUN, CREATININE, CA) 2022-01-09 22:17:00 Melida Longoria [facility] CBC WITH DIFF 2022-01-09 22:17:00 Melida Longoria [facility] N-TERMINAL PRO-BNP 2022-01-09 22:17:00 Melida Longoria [facility] XR CHEST 1 VW 2022-01-09 22:11:00 Melida Longoria [facility] CONSENT/REFUSAL FOR DIAGNOSIS AND TREATMENT 2022-01-09 21:34:15 Doctor Unassigned, [place] [facility] TROPONIN I 2021-12-14 05:39:00 Wil Mcqueen [facility] XR CHEST 1 VW 2021-12-14 04:39:00 Wil Mcqueen [facility] POCT TEST 2021-12-14 04:20:00 Wil Mcqueen [facility] URINALYSIS 2021-12-14 03:57:00 Wil Mcqueen [facility] LIPASE 2021-12-14 03:43:00 Wil Mcqueen [facility] TROPONIN I 2021-12-14 03:43:00 Wil Mcqueen [facility] FREE T4 2021-12-14 03:43:00 Wil Mcqueen [facility] THYROID STIMULATING HORMONE 2021-12-14 03:43:00 Wil Mcqueen [facility] COMP. METABOLIC PANEL ([id number]) 2021-12-14 03:43:00 Wil Mcqueen [facility] CBC WITH DIFF 2021-12-14 03:43:00 Wil Mcqueen [facility] FREE T3 2021-12-14 03:43:00 Wil Mcqueen [facility] CONSENT/REFUSAL FOR DIAGNOSIS AND TREATMENT 2021-12-14 02:58:21 Doctor Unassigned, [place] [facility] TROPONIN I 2021-11-12 03:04:00 Dee [facility] POCT TEST 2021-11-12 02:56:00 Tra Wang [facility] URINE DRUG (IMMUNOASSAY) - COMPREHENSIVE DRUG SCREEN 2021-11-12 02:30:00 Dee Wang [facility] URINALYSIS 2021-11-12 02:30:00 Dee Wang [facility] XR CHEST 2 VW 2021-11-12 01:45:03 Dee Wang [facility] LIPASE 2021-11-12 01:34:00 Dee Wang [facility] TROPONIN I 2021-11-12 01:34:00 Dee Wang [facility] COMP. METABOLIC PANEL ([id number]) 2021-11-12 01:34:00 Dee Wang [facility] CBC WITH DIFF 2021-11-12 01:34:00 Dee Wang [facility] N-TERMINAL PRO-BNP 2021-11-12 01:34:00 Mckinley Wang [facility] CONSENT/REFUSAL FOR DIAGNOSIS AND TREATMENT 2021-11-12 00:36:34 Doctor Unassigned, [place] [facility] CT ABDOMEN PELVIS W CONTRAST 2021-09-12 02:49:43 Dee Wang [facility] COVID-19 (ID NOW RAPID TESTING) 2021-09-12 02:23:00 Dee Wang [facility] POCT TEST 2021-09-12 02:21:00 Tra Wang [facility] POCT TEST 2021-09-12 01:45:00 Olivia Garcia [facility] URINALYSIS 2021-09-12 01:43:00 Olivia Garcia [facility] LIPASE 2021-09-12 01:40:00 Olivia Garcia [facility] COMP. METABOLIC PANEL ([id number]) 2021-09-12 01:40:00 Olivia Garcia [facility] CBC WITH DIFF 2021-09-12 01:40:00 Olivia Garcia [facility] CONSENT/REFUSAL FOR DIAGNOSIS AND TREATMENT 2021-09-12 01:26:55 Doctor Unassigned, [place] [facility] XR LUMBAR SPINE 1 VW 2021-08-15 07:03:00 Angeles Garcia i [facility] URINALYSIS 2021-08-15 06:35:00 Olivia Garcia [facility] POCT TEST 2021-08-15 06:35:00 Olivia Garcia [facility] NOTICE OF PRIVACY PRACTICES 2021-08-15 06:01:56 Doctor Unassigned, [place] [facility] CONSENT/REFUSAL FOR DIAGNOSIS AND TREATMENT 2021-08-15 05:25:54 Doctor Unassigned, [place] [facility] TROPONIN I 2021-05-28 07:50:00 Cem Choi [facility] D-DIMER 2021-05-28 07:05:00 Cem Choi [facility] XR CHEST 2 VW 2021-05-28 05:46:00 [facility] 2021-05-28 05:32:00 Cem Choi [facility] LIPASE 2021-05-28 05:29:00 Cem Choi [facility] TROPONIN I 2021-05-28 05:29:00 Cem Choi [facility] COMP. METABOLIC PANEL ([id number]) 2021-05-28 05:29:00 Cem Choi [facility] CBC WITH DIFF 2021-05-28 05:29:00 Cem Choi [facility] N-TERMINAL PRO-BNP 2021-05-28 05:29:00 Cem Choi [facility] COVID-19 (ID NOW RAPID TESTING) 2021-05-28 05:29:00 [facility] 2021-04-08 10:01:00 Brittni Romero [facility] BASIC METABOLIC PANEL (NA, K, CL, CO2, GLUCOSE, BUN, CREATININE, CA) 2021-04-08 10:01:00 Brittni Romero [facility] CBC WITH DIFF 2021-04-08 10:01:00 Brittni Romero [facility] TROPONIN I 2021-04-08 04:12:00 Brittni Romero [facility] XR CHEST 1 VW 2021-04-07 22:33:33 Roberto Richards [facility] LIPASE 2021-04-07 21:52:00 Roberto Richards [facility] MAGNESIUM 2021-04-07 21:52:00 Brittni Romero [facility] TROPONIN I 2021-04-07 21:52:00 Roberto Richards [facility] THYROID STIMULATING HORMONE 2021-04-07 21:52:00 Brittni Romero [facility] COMP. METABOLIC PANEL ([id number]) 2021-04-07 21:52:00 Roberto Richards [facility] LIPID PANEL ([id number])(TOTAL CHOLESTEROL, TRIGLYCERIDES, HDL) 2021-04-07 21:52:00 Brittni Romero [facility] CBC WITH DIFF 2021-04-07 21:52:00 Roberto Richards [facility] GLYCOSYLATED HEMOGLOBIN (A1C) 2021-04-07 21:52:00 Nick, Brittni Rocio [facility] PROTHROMBIN TIME / INR 2021-04-07 21:52:00 Jalen Richards [facility] ACTIVATED PARTIAL THRMPLAS MARCIO 2021-04-07 21:52:00 Roberto Richards [facility] N-TERMINAL PRO-BNP 2021-04-07 21:52:00 Roberto Richards [facility] COVID-19 (ID NOW RAPID TESTING) 2021-04-07 21:51:00 Roberto Richards [facility] HB ECG ROUTINE & RHYTHM STRIP 2021-04-07 21:38:41 Roberto Richards [facility] CONSENT/REFUSAL FOR DIAGNOSIS AND TREATMENT 2021-04-07 21:17:47 Doctor Unassigned, [place] [facility] CT ABDOMEN PELVIS WO CONTRAST 2021-01-12 08:10:17 Singer [facility] POCT TEST 2021-01-12 08:02:00 Jaquan Narvaez [facility] URINALYSIS 2021-01-12 07:58:00 Singer [facility] COMP. METABOLIC PANEL ([id number]) 2021-01-12 07:56:00 Singer [facility] CBC WITH DIFF 2021-01-12 07:56:00 Singer [facility] TROPONIN I 2020-12-11 00:47:00 Bal Hassan [facility] XR CHEST 1 VW 2020-12-10 22:40:57 Bal Hassan [facility] POCT TEST 2020-12-10 22:32:00 Suzanna Hassan [facility] URINALYSIS 2020-12-10 22:30:00 [facility] 2020-12-10 22:24:00 [facility] 2020-12-10 22:24:00 Mo [facility] HEPATIC FUNCTION PANEL ([id number]) (ALB,T.PRO,BILI T,BU/BC,ALT,AST,ALK PHOS) 2020-12-10 22:24:00 Bal Hassan [facility] BASIC METABOLIC PANEL (NA, K, CL, CO2, GLUCOSE, BUN, CREATININE, CA) 2020-12-10 22:24:00 Bal Hassan [facility] CBC WITH DIFF 2020-12-10 22:24:00 Bal Hassan [facility] D-DIMER 2020-12-10 22:24:00 Bal Hassan [facility] N-TERMINAL PRO-BNP 2020-12-10 22:24:00 Mirtha Hassan [facility] POCT TEST 2020-12-04 21:18:00 Hernan [facility] URINALYSIS 2020-12-04 21:17:00 Tremaine Becerra [facility] LIPASE 2020-12-04 20:20:[address] [facility] TROPONIN I 2020-12-04 20:20:[address] [facility] HEPATIC FUNCTION PANEL ([id number]) (ALB,T.PRO,BILI T,BU/BC,ALT,AST,ALK PHOS) 2020-12-04 20:20:00 Hernan [facility] BASIC METABOLIC PANEL (NA, K, CL, CO2, GLUCOSE, BUN, CREATININE, CA) 2020-12-04 20:20:00 Hernan [facility] CBC WITH DIFF 2020-12-04 20:20:00 [facility] XR CHEST 1 VW 2020-12-04 20:16:54 Tremaine Becerra [facility] XR ANKLE 3+ VW LEFT 2020-12-04 20:16:54 Hernan [facility] CONSENT/REFUSAL FOR DIAGNOSIS AND TREATMENT 2020-12-04 19:43:45 Doctor Unassigned, [place] [facility] XR CHEST 1 VW 2020-11-04 02:24:02 Olivia Garcia [facility] URINE DRUG (IMMUNOASSAY) - 4 ER PANEL 2020-11-04 02:19:00 Olivia Garcia [facility] URINALYSIS 2020-11-04 02:19:00 Olivia Garcia [facility] LIPASE 2020-11-04 02:16:00 Olivia Garcia [facility] TROPONIN I 2020-11-04 02:16:00 Olivia Garcia [facility] COMP. METABOLIC PANEL ([id number]) 2020-11-04 02:16:00 Olivia Garcia [facility] CBC WITH DIFF 2020-11-04 02:16:00 Olivia Garcia [facility] PROTHROMBIN TIME / INR 2020-11-04 02:16:00 Lucia Garcia [facility] ACTIVATED PARTIAL THRMPLAS MARCIO 2020-11-04 02:16:00 Olivia Garcia [facility] CONSENT/REFUSAL FOR DIAGNOSIS AND TREATMENT 2020-11-04 01:11:16 Doctor Unassigned, [place] [facility] XR CHEST 1 VW 2020-09-17 17:32:21 Leeanne Wise [facility] RAPID STREP SCREEN FOR GROUP A 2020-09-17 16:31:00 Leeanne Wise [facility] COVID-19 (ID NOW RAPID TESTING) 2020-09-17 16:31:00 Leeanne Wise [facility] NOTICE OF PRIVACY PRACTICES 2020-09-17 15:47:38 Doctor Unassigned, [place] [facility] CONSENT/REFUSAL FOR DIAGNOSIS AND TREATMENT 2020-09-17 15:47:07 Doctor Unassigned, [place] [facility] XR FOREARM 2 VW LEFT 2020-09-07 06:59:53 Saleem Edward [facility] XR HAND 3+ VW LEFT 2020-09-07 06:59:53 Saleem Edward [facility] NOTICE OF PRIVACY PRACTICES 2020-09-07 06:06:09 Doctor Unassigned, [place] [facility] CONSENT/REFUSAL FOR DIAGNOSIS AND TREATMENT 2020-09-07 06:03:10 Doctor Unassigned, [place] [facility] CT ABDOMEN PELVIS W CONTRAST 2020-08-28 09:16:08 Olivia Garcia [facility] POCT TEST 2020-08-28 08:45:00 Olivia Garcia [facility] URINALYSIS 2020-08-28 08:43:00 Olivia Garcia [facility] LIPASE 2020-08-28 08:09:00 Olivia Garcia [facility] COMP. METABOLIC PANEL ([id number]) 2020-08-28 08:09:00 Olivia Garcia [facility] CBC WITH DIFF 2020-08-28 08:09:00 [facility]ST 1 VW 2020-08-14 18:10:03 Best Taylor [facility] LIPASE 2020-08-14 17:58:00 Best Taylor [facility] TROPONIN I 2020-08-14 17:58:00 Best Taylor [facility] COMP. METABOLIC PANEL ([id number]) 2020-08-14 17:58:00 Best Taylor [facility] CBC WITH DIFF 2020-08-14 17:58:00 Best Taylor [facility] URINALYSIS 2020-08-14 17:58:00 Best Taylor [facility] LACTIC ACID WHOLE BLOOD 2020-08-14 17:58:00 Sophie Taylor [facility] ADC / LCC - DRUG SCREEN TRIAGE 2020-08-14 17:58:00 Best Taylor [facility] CONSENT/REFUSAL FOR DIAGNOSIS AND TREATMENT 2020-08-14 17:33:16 Doctor Unassigned, [place] [facility] CT ABDOMEN PELVIS WO CONTRAST 2020-08-11 04:11:07 Best Taylor [facility] XR CHEST 1 VW 2020-08-11 03:56:48 Best Taylor [facility] POCT TEST 2020-08-11 03:10:00 Best Taylor [facility] BLOOD CULTURE SCREEN 2020-08-11 02:01:00 Best Taylor [facility] BLOOD CULTURE SCREEN 2020-08-11 01:45:00 Best Taylor [facility] LIPASE 2020-08-11 01:45:00 [facility] 2020-08-11 01:45:00 [facility] HEPATIC FUNCTION PANEL ([id number]) (ALB,T.PRO,BILI T,BU/BC,ALT,AST,ALK PHOS) 2020-08-11 01:45:00 Best Taylor [facility] BASIC METABOLIC PANEL (NA, K, CL, CO2, GLUCOSE, BUN, CREATININE, CA) 2020-08-11 01:45:00 Best Taylor [facility] CBC WITH DIFF 2020-08-11 01:45:00 Best Taylor [facility] URINALYSIS 2020-08-11 01:45:00 Best Taylor [facility] LACTIC ACID WHOLE BLOOD 2020-08-11 01:45:00 Sophie Taylor [facility] COVID-19 (ID NOW RAPID TESTING) 2020-08-11 01:45:00 Best Taylor [facility] CONSENT/REFUSAL FOR DIAGNOSIS AND TREATMENT 2020-08-11 00:12:54 Doctor Unassigned, [place] [facility] XR FOREARM 2 VW LEFT 2020-08-07 14:03:06 Unique Richards [facility] COVID-19 (ID NOW RAPID TESTING) 2020-08-07 13:35:00 Roberto Richards [facility] NOTICE OF PRIVACY PRACTICES 2020-08-07 13:13:25 Doctor Unassigned, [place] [facility] CONSENT/REFUSAL FOR DIAGNOSIS AND TREATMENT 2020-08-07 13:11:06 Doctor Unassigned, [place] [facility] CONSENT/REFUSAL FOR DIAGNOSIS AND TREATMENT 2020-08-07 13:10:57 Doctor Unassigned, [place] [facility] TROPONIN I 2020-07-01 02:03:00 Abdias Robertson [facility] POCT TEST 2020-07-01 00:51:00 Abdias Robertson [facility] URINALYSIS 2020-07-01 00:48:00 Abdias Robertson [facility] CBC WITH DIFF 2020-07-01 00:12:00 Abdias Robertson [facility] EXTRA TUBE LT. BLUE 2020-07-01 00:12:00 Abdias Robertson [facility] LIPASE 2020-07-01 00:09:00 Abdias Robertson [facility] TROPONIN I 2020-07-01 00:09:00 Abdias Robertson [facility] BASIC METABOLIC PANEL (NA, K, CL, CO2, GLUCOSE, BUN, CREATININE, CA) 2020-07-01 00:09:00 Abdias Robertson [facility] ADC,CLC OR LCC ONLY - INFLUENZA A & B DIRECT ANTIGEN 2020-07-01 00:09:00 Jessica [facility] N-TERMINAL PRO-BNP 2020-07-01 00:09:00 Jessica [facility] XR CHEST 1 VW 2020-07-01 00:07:07 Abdias Robertson [facility] NOTICE OF PRIVACY PRACTICES 2020-06-30 23:27:46 Doctor Unassigned, [place] [facility] CT CERVICAL SPINE WO CONTRAST 2020-06-28 23:12:00 Narayan Narvaez [facility] CONSENT/REFUSAL FOR DIAGNOSIS AND TREATMENT 2020-06-28 21:52:44 Doctor Unassigned, [place] [facility] POCT TEST 2020-06-13 01:50:00 Leeanne Wise [facility] XR CHEST 1 VW 2020-06-13 01:18:17 Leeanne Wise [facility] URINALYSIS 2020-06-13 00:34:00 Leeanne Wise [facility] COVID-19 (ID NOW RAPID TESTING) 2020-06-13 00:34:00 Leeanne Wise [facility] LIPASE 2020-06-13 00:33:00 Leeanne Wise [facility] TROPONIN I 2020-06-13 00:33:00 Leeanne Wsie [facility] HEPATIC FUNCTION PANEL ([id number]) (ALB,T.PRO,BILI T,BU/BC,ALT,AST,ALK PHOS) 2020-06-13 00:33:00 Leeanne Wise [facility] BASIC METABOLIC PANEL (NA, K, CL, CO2, GLUCOSE, BUN, CREATININE, CA) 2020-06-13 00:33:00 Leeanne Wise [facility] CBC WITH DIFF 2020-06-13 00:33:00 Leeanne Wise [facility] D-DIMER 2020-06-13 00:33:00 Leeanne Wise [facility] CONSENT/REFUSAL FOR DIAGNOSIS AND TREATMENT 2020-06-12 23:27:48 Doctor Unassigned, [place] [facility] COVID-19 (ID NOW RAPID TESTING) 2020-05-16 23:50:00 Bushra Rios [facility] LIPASE 2020-05-16 23:21:00 Bushra Rios [facility] HEPATIC FUNCTION PANEL ([id number]) (ALB,T.PRO,BILI T,BU/BC,ALT,AST,ALK PHOS) 2020-05-16 23:21:00 Bushra Rios [facility] BASIC METABOLIC PANEL (NA, K, CL, CO2, GLUCOSE, BUN, CREATININE, CA) 2020-05-16 23:21:00 Bushra Rios [facility] CBC WITH DIFF 2020-05-16 23:21:00 [facility] 2020-05-15 07:42:00 Roberto Richards [facility] CT ABDOMEN PELVIS W CONTRAST 2020-05-15 06:56:53 Roberto Richards [facility] CT HEAD WO CONTRAST 2020-05-15 06:56:27 Alberta Richards [facility] POCT TEST 2020-05-15 05:53:00 Alberta Richards [facility] LIPASE 2020-05-15 05:52:00 Roberto Richards [facility] HEPATIC FUNCTION PANEL ([id number]) (ALB,T.PRO,BILI T,BU/BC,ALT,AST,ALK PHOS) 2020-05-15 05:52:00 Roberto Richards [facility] BASIC METABOLIC PANEL (NA, K, CL, CO2, GLUCOSE, BUN, CREATININE, CA) 2020-05-15 05:52:00 Roberto Richards [facility] ETHANOL 2020-05-15 05:52:00 Roberto Rcihards [facility] CBC WITH DIFF 2020-05-15 05:52:00 [facility]OT[facility] / INR 2020-05-15 05:52:00 Jalen Richards [facility] ACTIVATED PARTIAL THRMPLAS MARCIO 2020-05-15 05:52:00 Roberto Richards [facility] URINALYSIS 2020-05-15 05:52:00 Roberto Richards [facility] ADC / LCC - DRUG SCREEN TRIAGE 2020-05-15 05:52:00 Roberto Richards [facility] NOTICE OF PRIVACY PRACTICES 2020-05-15 05:12:38 Doctor Unassigned, [place] [facility] CONSENT/REFUSAL FOR DIAGNOSIS AND TREATMENT 2020-05-15 05:12:26 Doctor Unassigned, [place] [facility] Encounters Start Date/Time End Date/Time Encounter Type Admission Type Attending [facility] Care Facility Care Department Encounter ID Source 2024-09-15 11:15:00 2024-09-15 11:15:00 Outpatient KELLEE DORMAN [id number] Kellee [facility]ley 2024-09-15 10:45:00 2024-09-15 10:45:00 Outpatient KELLEE DORMAN [id number] Kellee Buckley 2024-09-15 10:15:00 2024-09-15 10:15:00 Outpatient KELLEE DORMAN [id number] [facility]ellee [facility] 2024-08-18 10:00:00 2024-08-18 10:00:00 Outpatient JOANNE MONTES [id number] [facility] 2024-07-15 00:00:00 2024-07-15 00:00:00 Outpatient JYOTI JOANNE KELLEE DORMAN [id number] [facility] 2024-07-10 00:00:00 2024-07-10 00:00:00 Outpatient JYOTI JOANNE DORMAN [id number] [facility] 2024-07-09 00:00:00 2024-07-09 00:00:00 Outpatient RADIOLOGY, DEPT KELLEE DORMAN [id number] [facility] 2024-07-09 00:00:00 2024-07-09 00:00:00 Outpatient RADIOLOGY, DEPT KELLEE DORMAN [id number] [facility] 2024-07-07 00:00:00 2024-07-07 00:00:00 Outpatient MD KELLEE CHOI [id number] [facility] 2024-07-06 07:00:00 2024-07-06 07:00:00 Outpatient KELLEE DORMAN [id number] [facility] 2024-07-06 00:00:00 2024-07-06 00:00:00 Outpatient GISELLE OSORIO [id number] [facility] 2024-07-03 19:56:00 2024-07-04 01:32:00 Emergency X SANDY GARCIA, KAELYNTA [facility] [id number] [facility] 2024-07-03 19:56:00 2024-07-04 01:32:00 Emergency Kaelyn Garciata [facility] [id number] [facility] 2024-06-21 02:04:00 2024-06-21 02:59:00 Emergency X ASHWINI, KAELYNTA ASHWINI, SHINTA [facility] E[facility] [id number] [facility] 2024-06-21 02:04:00 2024-06-21 02:59:00 Emergency Kaelyn Garciata [facility] [id number] [facility] 2024-06-20 00:00:00 2024-06-20 00:00:00 Outpatient MARLINJOANNE Pinedo KELLEE DORMAN [id number] [facility] 2024-06-18 00:00:00 2024-06-18 00:00:00 Outpatient GISELLE OSORIO [id number] [facility] 2024-06-17 15:30:00 2024-06-17 15:30:00 Outpatient KELLEE DORMAN [id number] [facility] 2024-06-14 21:28:00 2024-06-15 00:28:00 Emergency X SANDY GARCIA SHINTA [facility] ERT [id number] [facility] 2024-06-14 21:28:00 2024-06-15 00:28:00 Emergency Sandy Garcia [facility] [id number] [facility] 2024-06-06 21:56:00 2024-06-07 02:40:00 Emergency X OLIVIA GARCIA WAKILI [facility] ERT [id number] [facility] 2024-06-06 21:56:00 2024-06-07 02:40:00 Emergency Olivia Garcia [facility] [id number] [facility] 2024-06-02 00:00:00 2024-06-02 00:00:00 Outpatient JOANNE MONTES KELLEE DORMAN [id number] [facility] 2024-05-28 13:00:00 2024-05-28 13:00:00 Outpatient [facility]ELLE OSORIO [id number] [facility]20 00:00:00 2024-05-20 00:00:00 Outpatient MARLINJOANNE Pinedo KELLEE DORMAN [id number] [facility] 2024-05-19 11:44:00 2024-05-19 13:35:00 Emergency X ANNALISE WRIGHT [facility] [id number] [facility] 2024-05-19 11:44:00 2024-05-19 13:35:00 Emergency [facility] [facility] 1.2.840.114 350.1.13.10 4.2.7.2.686 [id number] [facility] 2024-05-18 11:15:00 2024-05-18 11:15:00 Outpatient LEYLA KELLEE DORMAN [id number] [facility] 2024-05-18 10:30:00 2024-05-18 10:30:00 Outpatient JYOTI JOANNE DORMAN [id number] [facility] 2024-05-17 18:30:00 2024-05-17 22:19:00 Emergency Alesha Roy [facility] 1.2.840.114 350.1.13.10 4.2.7.2.686 [id number] [facility] 2024-05-13 18:04:00 2024-05-13 20:42:00 Emergency ER ARELIS KERN [facility] [id number] [facility] 2024-05-12 00:00:00 2024-05-12 00:00:00 Outpatient JYOTI JOANNE DORMAN [id number] [facility] 2024-05-07 18:47:00 2024-05-07 21:36:00 Emergency Saleem Edward [facility] 1.2.840.114 350.1.13.10 4.2.7.2.686 [id number] [facility] 2024-04-22 09:15:00 2024-04-22 09:15:00 Outpatient FARTUN GILLESPIE KELLEE DORMAN [id number] [facility] Marcio 2024-04-15 10:30:00 2024-04-15 10:30:00 Outpatient JYOTI JOANNE DORMAN [id number] [facility] 2024-04-12 00:00:00 2024-04-12 00:00:00 Outpatient MARLINLee JOANNE DORMAN [id number] [facility] 2024-04-10 16:20:00 2024-04-10 18:53:00 Emergency ER TAVARES MG JR [facility] [id number] [facility] 2024-04-10 16:20:00 2024-04-10 18:53:00 Departed Emergency Room [facility] [id number] [facility] 2024-04-08 17:37:00 2024-04-08 20:38:00 Emergency Leigh Rojo [facility] 1.2.840.114 350.1.13.10 4.2.7.2.686 [id number] [facility] 2024-04-08 00:00:00 2024-04-08 00:00:00 Outpatient JYOTI JOANNE DORAMN [id number] [facility] 2024-03-12 00:00:00 2024-03-12 00:00:00 Outpatient JYOTI JOANNE DORMAN [id number] [facility] 2024-03-06 11:00:00 2024-03-06 11:00:00 Outpatient JOANNE MONTES [id number] [facility] 2024-02-06 11:00:00 2024-02-06 11:00:00 Outpatient GISELLE OSORIO [id number] [facility] 2024-02-06 10:40:00 2024-02-06 10:40:00 Outpatient KELLEE DORMAN [id number] [facility] 2024-02-06 00:00:00 2024-02-06 00:00:00 Outpatient HUNDL, JOANNE DORMAN [id number] [facility] 2024-02-05 00:00:00 2024-02-05 00:00:00 Outpatient HUNDL, JOANNE DORMAN [id number] [facility] 2024-01-14 09:30:00 2024-01-14 09:30:00 Outpatient HUNDL, JOANNE DORMAN [id number] [facility] 2024-01-09 00:00:00 2024-01-09 00:00:00 Outpatient HUNDL, JOANNE DORMAN [id number] [facility] 2024-01-06 00:00:00 2024-01-06 00:00:00 Outpatient HUNDL, JOANNE DORMAN [id number] [facility] 2024-01-03 00:00:00 2024-01-03 00:00:00 Outpatient HUNDL, JOANNE DORMAN [id number] [facility] 2024-01-02 14:00:00 2024-01-02 14:00:00 Outpatient HUNDL, JOANNE DORMAN [id number] [facility] 2023-12-13 09:30:00 2023-12-13 09:30:00 Outpatient HUNDL[facility] [id number] [facility] 2023-12-09 00:00:00 2023-12-09 00:00:00 Outpatient HUNDL, JO[facility]ORMAN [id number] [facility]23-[facility]05 00:00:00 2023-12-05 00:00:00 Outpatient HUNDL, JOANNE DORMAN [id number] [facility] 2023-12-03 11:45:00 2023-12-03 11:45:00 Outpatient LABGerman DORMAN [id number] [facility] 2023-12-03 11:00:00 2023-12-03 11:00:00 Outpatient HUNDL, JOANNE DORMAN [id number] [facility] 2023-11-26 00:00:00 2023-11-26 00:00:00 Outpatient JOANNE MONTES KELLEE [id number] [facility] 2023-10-31 00:00:00 2023-10-31 00:00:00 Outpatient COSMO DORMAN KELLEE [id number] [facility] 2023-10-31 00:00:00 2023-10-31 00:00:00 Outpatient COSMO DORMAN KELLEE [id number] [facility] 2023-10-29 14:15:00 2023-10-29 14:15:00 Outpatient LAB90 KELLEE ANDERSENSEY [id number] [facility] 2023-10-29 13:30:00 2023-10-29 13:30:00 Outpatient JOANNE MONTES KELLEE [id number] [facility] 2023-10-10 21:31:00 2023-10-11 00:43:00 Emergency X OLIVIA GARCIA [facility] ERT [id number] [facility] 2023-10-10 21:31:00 2023-10-11 00:43:00 Emergency Olivia Garcia [facility] 1.2.840.114 350.1.13.10 4.2.7.2.686 [id number] [facility] 2023-08-31 18:02:00 2023-08-31 22:40:00 Emergency ER SHERIDAN MCMANUS [facility] [id number] [facility] 2023-08-31 18:02:00 2023-08-31 22:40:00 emergency [facility] [id number] 2023-07-01 19:50:00 2023-07-01 22:59:00 Emergency X MAURICE ROBERTO [facility] ERT [id number] [facility] 2023-07-01 19:50:00 2023-07-01 22:59:00 Emergency Roberto Richards [facility] 1..840.114 350.1.13.10 4.2.7.2.686 [id number] [facility] 2023-06-04 23:37:00 2023-06-06 13:30:00 Inpatient ER SHAN BUSCH [facility] [id number] [facility] 2023-06-04 23:37:00 2023-06-06 13:30:00 observatio n encounter [facility] [id number] [facility] [id number] 2023-05-11 01:16:00 2023-05-13 17:04:00 Inpatient ER RIDDHI MYLES [facility] [id number] [facility] 2023-05-11 01:16:00 2023-05-13 17:04:00 observatio n encounter [facility] [id number] [facility] [id number] 2023-05-10 21:48:00 2023-05-10 21:48:00 Emergency ER AN IRIZARRY [facility] [id number] [facility] 2023-05-09 17:40:00 2023-05-09 20:30:00 Emergency X NARAYAN NARVAEZ [facility] ERT [id number] [facility] 2023-05-09 17:40:00 2023-05-09 20:30:00 Emergency Narayan Narvaez [facility] 1.2.840.114 350.1.13.10 4.2.7.2.686 [id number] [facility] 2023-05-05 21:31:00 2023-05-06 03:15:00 Emergency ER SHERIDAN MCMANUS [facility] [id number] [facility] 2023-05-05 21:31:00 2023-05-06 03:15:00 emergency [facility] [id number] 2023-04-30 17:18:00 2023-04-30 21:20:00 Emergency X NARAYAN NARVAEZ [facility] ERT [id number] [facility] 2023-04-30 17:18:00 2023-04-30 21:20:00 Emergency Narayan Narvaez [facility] 1.2.840.114 350.1.13.10 4.2.7.2.686 [id number] [id number] [facility] 2023-04-16 20:40:00 2023-04-16 23:10:00 Emergency X ROBERTO RICHARDS [facility] ERT [id number] [facility] 2023-04-16 20:40:00 2023-04-16 23:10:00 Emergency Roberto Richards [facility] 1.2.840.114 350.1.13.10 4.2.7.2.686 [id number] [facility] 2023-04-08 17:28:00 2023-04-08 21:20:00 Emergency X WAGNER Saleem [facility] ERT [id number] [facility] 2023-04-08 17:28:00 2023-04-08 21:20:00 Emergency Wagner Saleem Knowles [facility] 1.2.840.114 350.1.13.10 4.2.7.2.686 [id number] [facility] 2023-03-09 20:23:00 2023-03-10 00:20:00 Emergency X ROBERTO RICHARDS [facility] ERT [id number] [facility] 2023-03-09 20:23:00 2023-03-10 00:20:00 Emergency Roberto Richards [facility] 1.2.840.114 350.1.13.10 4.2.7.2.686 [id number] [facility] 2023-03-01 19:35:00 2023-03-02 01:35:00 Emergency X OLIVIA GARCIA [facility] ERT [id number] [facility] 2023-03-01 19:35:00 2023-03-02 01:35:00 Emergency Olivia Garcia [facility] 1.2.840.114 350.1.13.10 4.2.7.2.686 [id number] [id number] [facility] 2023-02-17 22:58:00 2023-02-18 02:22:00 Emergency X BRITTNI PADGETT [facility] ERT [id number] [facility] 2023-02-17 22:58:00 2023-02-18 02:22:00 Emergency Brittni Padgett [facility] 1.2.840.114 350.1.13.10 4.2.7.2.686 [id number] [facility] 2023-02-15 13:46:00 2023-02-17 16:14:00 [facility] [id number] [facility] 2023-02-15 13:46:00 2023-02-17 16:14:00 Emergency PonceLeeanne almonte Kristin Montero Jesús [facility] 1.2.840.114 350.1.13.10 4.2.7.2.686 [id number] [facility] 2022-01-17 10:48:00 2022-01-17 10:48:00 Outpatient CATHIE HUYNH [facility] [id number] Heather henriquez [facility] 2022-01-09 16:47:00 2022-01-09 20:28:00 Emergency X MELIDA LONGORIA [facility] ERT [id number] [facility] 2022-01-09 16:47:00 2022-01-09 20:28:00 Emergency Melida Longoria [facility] 1.2.840.114 350.1.13.10 4.2.7.2.686 [id number] [id number] [facility] 2021-12-13 22:16:00 2021-12-14 02:28:00 Emergency X WIL MCQUEEN [facility] ERT [id number] [facility] 2021-12-13 22:16:00 2021-12-14 02:28:00 Emergency Wil Mcqueen R [facility] 1.2840.114 350.1.13.10 4.2.7.2.686 [id number] [facility] 2021-11-11 19:50:00 2021-11-11 23:17:00 Emergency X RAJ WANGQuincy [facility] ERT [id number] [facility] 2021-11-11 19:50:00 2021-11-11 23:17:00 Emergency GenaroclaudiastacyRajquincy F [facility] 1.2.840.114 350.1.13.10 4.2.7.2.686 [id number] [id number] [facility] 2021-11-11 00:00:00 2021-11-11 00:00:00 Orders Only Doctor Unassigned, [place] [facility] 1.2840.114 350.1.13.10 4.2.7.2.686 [id number] [facility] 2021-09-11 19:42:00 2021-09-11 23:02:00 Emergency X DEE WANG [facility] ERT [id number] [facility] 2021-09-11 19:42:00 2021-09-11 23:02:00 Emergency Ibikunle, Folusho F [facility] 1.2.840.114 350.1.13.10 4.2.7.2.686 [id number] [id number] [facility] 2021-08-14 23:38:00 2021-08-15 02:29:00 Emergency X OLIVIA GARCIA [facility] ERT [id number] [facility] 2021-08-14 23:38:00 2021-08-15 02:29:00 Emergency Olivia Garcia [facility] 1.2.840.114 350.1.13.10 4.2.7.2.686 [id number] [id number] [facility] 2021-05-27 23:23:00 2021-05-28 04:23:00 Emergency X CEM CHOI [facility] ERT [id number] [facility] 2021-05-27 23:23:00 2021-05-28 04:23:00 Emergency Cem Choi [facility] 1.2.840.114 350.1.13.10 4.2.7.2.686 [id number] [id number] [facility] 2021-04-10 00:00:00 2021-04-10 00:00:00 Transition of Care Shelley Rosas 1.2.840.114 350.1.13.10 4.2.7.2.686 [id number] [facility] 2021-04-07 16:30:00 2021-04-08 17:45:00 Hospital Encounter Roberto Richards Jelani [facility] 1.2.840.114 350.1.13.10 4.2.7.2.686 [id number] [id number] [facility] 2021-04-07 16:18:00 2021-04-07 16:18:00 Emergency X [facility] ERT [id number] [facility] 2021-01-12 03:01:00 2021-01-12 04:56:00 Emergency Narayan Narvaez [facility] 1.2.840.114 350.1.13.10 4.2.7.2.686 [id number] [facility] 2021-01-12 03:01:00 2021-01-12 03:01:00 Emergency X NARAYAN NARVAEZ [facility] ERT [id number] [facility] 2020-12-10 17:12:00 2020-12-10 21:14:00 Emergency Bal Hassan [facility] 1.2.840.114 350.1.13.10 4.2.7.2.686 [id number] [id number] [facility] 2020-12-10 17:12:00 2020-12-10 17:12:00 Emergency X DIDI HASSANANNE [facility] ERT [id number] [facility] 2020-12-04 14:50:00 2020-12-04 17:08:00 Emergency Tremaine Becerra [facility] 1.2.840.114 350.1.13.10 4.2.7.2.686 [id number] [id number] [facility] 2020-12-04 14:50:00 2020-12-04 17:08:00 Emergency X TREMAINE BECERRA [facility] ERT [id number] [facility] 2020-11-03 20:44:00 2020-11-03 23:34:00 Emergency Frandy Leeanne [facility] 1.2.840.114 350.1.13.10 4.2.7.2.686 [id number] [facility] 2020-11-03 20:44:00 2020-11-03 23:34:00 Emergency X FRANDY LEEANNE [facility] ERT [id number] [facility] 2020-09-19 12:32:00 2020-09-19 14:15:00 Emergency ER MORA POLLOCK [facility] [id number] [facility] 2020-09-17 09:53:00 2020-09-17 11:55:00 Emergency Leeanne Wise [facility] 1.2.840.114 350.1.13.10 4.2.7.2.686 [id number] [facility] 2020-09-17 09:53:00 2020-09-17 11:55:00 Emergency X LEEANNE WISE [facility] ERT [id number] [facility] 2020-09-17 09:53:00 2020-09-17 11:55:00 Emergency Leeanne Wise [facility] 1.2.840.114 350.1.13.10 4.2.7.2.686 [id number] 2020-09-07 00:37:00 2020-09-07 01:41:00 Emergency Saleem Edward [facility] 1.2840.114 350.1.13.10 4.2.7.2.686 [id number] [id number] [facility] 2020-09-07 00:37:00 2020-09-07 01:41:00 Emergency X Saleem EDWARD MARLENEMB ERT [id number] [facility] 2020-09-07 00:37:00 2020-09-07 01:41:00 Emergency Saleem Edward [facility] 1.2.840.114 350.1.13.10 4.2.7.2.686 [id number] [id number] 2020-09-07 00:00:00 2020-09-07 00:00:00 Orders Only Doctor Unassigned, [place] [facility] 1.2.840.114 350.1.13.10 4.2.7.2.686 [id number] [facility] 2020-09-07 00:00:00 2020-09-07 00:00:00 Orders Only Doctor Unassigned, [place] [facility] 1.2.840.114 350.1.13.10 4.2.7.2.686 [id number] 2020-08-28 01:59:00 2020-08-28 04:40:00 Emergency Olivia Garcia [facility] 1.2.840.114 350.1.13.10 4.2.7.2.686 [id number] [id number] [facility] 2020-08-28 01:59:00 2020-08-28 04:40:00 Emergency Olivia Garcia [facility] 1.2.840.114 350.1.13.10 4.2.7.2.686 [id number] 2020-08-28 01:59:00 2020-08-28 01:59:00 Emergency X OLIVIA GARCIA [facility] ERT [id number] [facility] 2020-08-14 11:48:00 2020-08-14 13:42:00 Emergency Best Taylor [facility] 1.2.840.114 350.1.13.10 4.2.7.2.686 [id number] [facility] 2020-08-14 11:48:00 2020-08-14 13:42:00 Emergency Best Taylor [facility] 1.2.840.114 350.1.13.10 4.2.7.2.686 [id number] [id number] 2020-08-14 11:33:00 2020-08-14 11:33:00 Emergency X BEST TAYLOR [facility] ERT [id number] [facility] 2020-08-10 18:35:00 2020-08-11 00:05:00 Emergency Best Taylor [facility] 1.2.840.114 350.1.13.10 4.2.7.2.686 [id number] [id number] [facility] 2020-08-10 18:35:00 2020-08-11 00:05:00 Emergency X OLIVIA GARCIA [facility] ERT [id number] [facility] 2020-08-10 18:35:00 2020-08-11 00:05:00 [facility] 1.2.840.114 350.1.13.10 4.2.7.2.686 [id number] 084 [id number] 2020-08-07 07:19:00 2020-08-07 09:02:00 Emergency [facility] 1.2.840.114 350.1.13.10 4.2.7.2.686 [id number] 084 [id number] [facility] 2020-08-07 07:19:00 2020-08-07 09:02:00 [facility] 1.2.840.114 350.1.13.10 4.2.7.2.686 [id number] [id number] 2020-08-07 07:12:00 2020-08-07 07:12:00 Emergency X [facility] ERT [id number] [facility] 2020-08-07 00:00:00 2020-08-07 00:00:00 Orders Only Doctor Unassigned, [place] [facility] 1.2.840.114 350.1.13.10 4.2.7.2.686 [id number] [facility] 2020-08-07 00:00:00 2020-08-07 00:00:00 Orders Only Doctor Unassigned, [place] [facility] 1.2.840.114 350.1.13.10 4.2.7.2.686 [id number] 2020-07-01 00:00:00 2020-07-01 00:00:00 Letter (Out) [facility] 1.2.840.114 350.1.13.10 4.2.7.2.686 [id number] [facility] 2020-07-01 00:00:00 2020-07-01 00:00:00 Letter (Out) Sallie, [facility] 1.2.840.114 350.1.13.10 4.2.7.2.686 [id number] 2020-06-30 17:46:00 2020-06-30 21:06:00 Emergency Abdias Robertson [facility] 1.2.840.114 350.1.13.10 4.2.7.2.686 [id number] 084 [id number] [facility] 2020-06-30 17:46:00 2020-06-30 21:06:00 Emergency X ABDIAS ROBERTSON [facility] ERT [id number] [facility] 2020-06-30 17:46:00 2020-06-30 21:06:00 Emergency Abdias Robertson [facility] 1.2.840.114 350.1.13.10 4.2.7.2.686 [id number] 084 [id number] 2020-06-28 16:00:00 2020-06-28 18:08:00 Emergency [facility] 1.2.840.114 350.1.13.10 4.2.7.2.686 [id number] [id number] [facility] 2020-06-28 16:00:00 2020-06-28 18:08:00 Emergency [facility] 1.2.840.114 350.1.13.10 4.2.7.2.686 [id number] 084 [id number] 2020-06-28 16:00:00 2020-06-28 16:00:00 Emergency X NARAYAN NARVAEZ [facility] ERT [id number] [facility] 2020-06-14 00:00:00 2020-06-14 00:00:00 Telephone [facility] 1.2.840.114 350.1.13.10 4.2.7.2.686 [id number] [facility] 2020-06-14 00:00:00 2020-06-14 00:00:00 Telephone [facility] 1.2.840.114 350.1.13.10 4.2.7.2.686 [id number] 2020-06-12 17:40:00 2020-06-12 22:05:00 Emergency Leeanne Wise [facility] 1.2.840.114 350.1.13.10 4.2.7.2.686 [id number] [id number] [facility] 2020-06-12 17:40:00 2020-06-12 22:05:00 Emergency Leeanne Wise [facility] 1.2.840.114 350.1.13.10 4.2.7.2.686 [id number] 2020-06-12 17:28:00 2020-06-12 17:28:00 Emergency X [facility] ERT [id number] [facility] 2020-05-16 17:10:00 2020-05-16 19:01:00 Emergency Bushra Rios [facility] 1.2.840.114 350.1.13.10 4.2.7.2.686 [id number] [id number] [facility] 2020-05-16 17:10:00 2020-05-16 19:01:00 Emergency Bushra Rios [facility] 1.2.840.114 350.1.13.10 4.2.7.2.686 [id number] 084 [id number] 2020-05-16 17:10:00 2020-05-16 17:10:00 Emergency X BUSHRA RIOS [facility] ERT [id number] [facility] 2020-05-14 23:18:00 2020-05-15 02:54:00 Emergency Roberto Richards [facility] 1.2.840.114 350.1.13.10 4.2.7.2.686 [id number] [facility] 2020-05-14 23:18:00 2020-05-15 02:54:00 Emergency Roberto Richards [facility] 1.2.840.114 350.1.13.10 4.2.7.2.686 [id number] [id number] 2020-05-14 23:14:00 2020-05-14 23:14:00 Emergency X ROBERTO RICHARDS [facility] ERT [id number] [facility] 2009-07-18 05:35:00 2009-07-18 09:19:00 Emergency ER ROLF FRANKG [facility] [id number] [facility] 2008-10-08 09:55:00 2008-10-08 14:19:00 Emergency ER ACACIA ALVAREZED [facility] [id number] [facility] 2008-03-26 15:21:00 2008-03-26 18:08:00 Emergency ER NEIL WILKINS [facility] [id number] [facility] 2005-05-25 06:35:00 2005-05-25 06:35:00 Outpatient LISA LUNA [facility] [id number] [facility] 2005-05-16 21:57:00 2005-05-16 23:40:00 Emergency ER JW SOLORZANO [facility] [id number] [facility] 2005-04-24 18:49:00 2005-04-24 22:40:00 Emergency ER JW SOLORZANO [facility] [id number] [facility] 2004-12-27 20:30:00 2004-12-28 01:40:00 Emergency ER SANIA SIBLEY [facility] [id number] [facility] 2003-12-07 22:40:00 2003-12-08 02:48:00 Emergency ER GINA MARTIN [facility] [id number] [facility] 2003-12-06 13:57:00 2003-12-06 18:30:00 Emergency ER YIN RIOS [facility] [id number] [facility] 2003-08-31 19:43:00 2003-08-31 22:55:00 Emergency ER GUMARO ALVAREZ [facility] [id number] [facility] 2003-08-22 19:26:00 2003-08-22 22:10:00 Emergency ER ALBERTO CASTLE [facility] [id number] [facility] 2002-01-30 22:41:00 2002-01-31 01:29:00 Emergency ER JENNIE ANTHONY [facility] [id number] [facility] 2001-10-28 09:15:00 2001-10-28 11:25:00 Emergency ER LINDA DARCIE [facility] [id number] [facility] 2001-04-15 19:14:00 2001-04-15 23:10:00 Emergency ER YESICA ARLETET [facility] [id number] [facility] 2000-12-25 21:52:00 2000-12-26 00:15:00 Emergency ER GISELA RIOS [facility] [id number] [facility] 2000-12-23 18:51:00 2000-12-23 22:00:00 Emergency ER HUGO COFFMAN [facility] [id number] [facility] 1999-10-26 21:11:00 1999-10-27 00:20:00 Emergency ER JW SOLORZANO [facility] [id number] [facility] Results Test Description Test Time Test Comments Results Result Comments Source CT Abdomen pelvis w contrast 06:50:04 Exam: CT Abdomen and Pelvis With Contrast, 07/03/2024 10:45 PM. Ordering Physician: SANDY GARCIA. History: Right lower quadrant pain. Comparison: 06/14/2024. Technique: CT abdomen and pelvis was obtained with intravenous contrast. CT was performed according to ALARA (As Low As Reasonably Achievable). Technical Quality: Adequate. Findings: CT Abdomen:Lower Thorax: Linear bibasilar opacities represent either scarring orsubsegmental atelectasis. Heart size is normal. Organs: Liver, pancreas, spleen, and right adrenal gland are normal. 3.0 cmleft adrenal mass is seen.Biliary Tree: Gallbladder is surgically absent. There is mild intrahepaticbiliary ductal dilatation. ?There is no pancreatic or common biliary ductdilatation. Urinary Tract: Kidneys are symmetric in size. There is no hydronephrosis orhydroureter. Peritoneal/Retroperiton eal: There is no free air or free fluid. Lymph Nodes: There is no abdominal adenopathy. Vascular: Unremarkable.Body Wall: Unremarkable. Gastrointestinal: Stomach is unremarkable. Small bowel loops areunremarkable. There is no evidence of bowel obstruction. Appendix isnormal. There is mild, diffuse colonic wall thickening. There is moderatecolonic stool. ? Osseous: There are degenerative changes of the spine. CT Pelvis:Genitourinary: Urinary bladder is unremarkable. Uterus is not enlarged.Hypodense, ovoid 3.0 cm left adnexal structure with thin rim is seen,likely in the ovary. Peritoneal/Extraperiton eal: There is no pelvic free fluid. ?There is nopelvic adenopathy. Osseous/Soft Tissues: Unremarkable. [id number] 04:06:42* Test Item Value Reference Range Interpretation Comme nts NA (test code = 1447714429) 139 mmol/L 135-145 K (test code = 8897811334) 3.5 mmol/L 3.5-5.0 CL (test code = 2187806885) 105 mmol/L 98-108 CO2 TOTAL (test code = 9916191642) 26 mmol/L 23-31 AGAP (test code = 4862853473) 8 2-16 BUN (test code = 6745892203) 5 mg/dL 7-23 L GLUCOSE (test code = 5670908155) 101 mg/dL 70-110 CREATININE (test code = 2160-0) 0.58 mg/dL 0.50-1.04 TOTAL BILI (test code = 0252652327) 0.1-1.1 L CALCIUM (test code = 9676281599) 9.3 mg/dL 8.6-10.6 T PROTEIN (test code = 5642784572) 6.8 g/dL 6.3-8.2 ALBUMIN (test code = 3153182374) 3.9 g/dL 3.5-5.0 ALK PHOS (test code = 8970314290) 74 U/L 34-122 ALTv (test code = 1742-6) 17 U/L 5-35 AST(SGOT) (test code = 6589164934) 28 U/L 13-40 eGFR (test code = 19477-3) 113.9 mL/min/1.73m2 CKD-EPI eGFR (2020). Assuming creatinine has been stable day-to-day for at least three months, the eGFR indicates Category G1 (>= 90 mL/min/1.73 m2) Lab Interpretation (test code = 25904-1) [facility], Nomvz4341-74-23 04:01:05* Test Item Value Reference Range Interpretation Comme nts LIPASE (test code = 8684365817) 80 U/L 0-220 Lab Interpretation (test cod e = 12066-9) [facility] with Vqbtdyoijeqb6477-31-40 03:46:26* Test Item Value Reference Range Interpretation Comme nts WBC (test code = 6690-2) 12.49 4.30-11.10 H RBC (test code = 789-8) 4.80 3.93-5.25 HGB (test code = 718-7) 12.8 g/dL 11.6-15.0 HCT (test code = 4544-3) 38.5 % 35.7-45.2 MCV (test code = 787-2) 80.2 fL 80.6-95.5 L MCH (test code = 785-6) 26.7 pg 25.9-32.8 MCHC (test code = 786-4) 33.2 g/dL 31.6-35.1 RDW-SD (test code = 27628-0) 42.5 fL 39.0-49.9 RDW-CV (test code = 788-0) 14.6 % 12.0-15.5 PLT (test code = 777-3) 327 166-358 MPV (test code = 46062-1) 9.3 fL 9.5-12.9 L NRBC/100 WBC (test code = 1699293797) 0.0 0.0-10.0 NRBC x10^3 (test code = 9496048688) See_Comment [Automated messa ge] The system which generated this result transmitted reference range: 10*3/?L. The reference range was not used to interpret this result as normal/abnormal. GRAN MAT (NEUT) % (test code = 770-8) 65.7 % IMM GRAN % (test code = 7741847609) 0.50 % LYMPH % (test code = 736-9) 26.4 % MONO % (test code = 5905-5) 5.6 % EOS % (test code = 713-8) 1.4 % BASO % (test code = 706-2) 0.4 % GRAN MAT x10^3(ANC) (test code = 3644534061) 8.21 10*3/uL 1.88-7.09 H IMM GRAN x10^3 (test code = 0704114638) 0.06 10*3/uL 0.00-0.06 LYMPH x10^3 (test code = 731-0) 3.30 10*3/uL 1.32-3.29 H MONO x10^3 (test code = 742-7) 0.70 10*3/uL 0.33-0.92 EOS x10^3 (test code = 711-2) 0.17 10*3/uL 0.03-0.39 BASO x10^3 (test code = 704-7) 0.05 10*3/uL 0.01-0.07 Lab Interpretation (test code = 72986-3) [facility] Abdomen pelvis w smgwgwyt1412-22-40 05:39:04CT ABDOMEN PELVIS W CONTRAST HISTORY: 44 years-old; Female; Nausea/vomiting Abdominal pain, acute, nonlocalized COMPARISON: CT dated 04/08/2024. TECHNIQUE AND FINDINGS: Contiguous axial imaging from the level of the lungbases through the pubic symphysis was performed after the uncomplicatedadministration of intravenous Omnipaque contrast. Coronal and sagittalreconstructions were obtained. ?Auto mAand/or iterative reconstructionwere used to reduce radiation dose. FINDINGS: LOWER THORAX: The lungbases are clear. No cardiomegaly. LIVER: No focal [...] Bladder is fully distended with no wall thick ening. VESSELS: Unremarkable. BONES AND SOFT TISSUES: No suspicious lytic or sclerotic bony lesions.[facility]. Metabolic Panel (39476)2024-06-15 05:12:33* Test Item Value Reference Range Interpretation Comme nts NA (test code = 1654032723) 139 mmol/L 135-145 K (test code = 8012377198) 3.7 mmol/L 3.5-5.0 CL (test code = 1565391492) 109 mmol/L 98-108 H CO2 TOTAL (test code = 9568106282) 23 mmol/L 23-31 AGAP (test code = 8501125195) 7 2-16 BUN (test code = 7445549601) 6 mg/dL 7-23 L GLUCOSE (test code = 2431697527) 101 mg/dL 70-110 CREATININE (test code = 2160-0) 0.67 mg/dL 0.50-1.04 TOTAL BILI (test code = 9459044324) 0.1-1.1 L CALCIUM (test code = 3072740111) 9.4 mg/dL 8.6-10.6 T PROTEIN (test code = 5414312561) 7.0 g/dL 6.3-8.2 ALBUMIN (test code = 9725508811) 4.0 g/dL 3.5-5.0 ALK PHOS (test code = 8764085671) 87 U/L 34-122 ALTv (test code = 1742-6) 28 U/L 5-35 AST(SGOT) (test code = 5883887133) 24 U/L 13-40 eGFR (test code = 91096-3) 110.0 mL/min/1.73m2 CKD-EPI eGFR (2020). Assuming creatinine has been stable day-to-day for at least three months, the eGFR indicates Category G1 (>= 90 mL/min/1.73 m2) Lab Interpretation (test code = 11962-3) [facility] HeightsTroponin [id number] 05:03:33* Test Item Value Reference Range Interpretation Comme nts TROPONIN I (test code = 0153239963) 0.000 ng/mL <=0.034 DARWIN (test code = [...] of biotin. Lab Interpretation (test code = 27319-2) [facility] HeightsLipase2024-12-09 04:51:35* Test Item Value Reference Range Interpretation Comme nts LIPASE (test code = 6170584255) 94 U/L 0-220 Lab Interpretation (test cod e = 39816-8) Normal [facility] HeightsPregnancy Test, Wzixx7455-72-58 04:51:30* Test Item Value Reference Range Interpretation Comme nts PREG SERUM (test code = 4757524656) Negative DARWIN (test code = DARWIN) Less than 10 IU/L. ?If low titer or ectopic is suspected, resubmit specimen in 48-72 hours. [facility] HeightsCb with Jwbt9426-24-34 04:36:57* Test Item Value Reference Range Interpretation [...] 32.9 g/dL 31.6-35.1 RDW-SD (test code = 72193-1) 44.3 fL 39.0-49.9 RDW-CV (test code = 788-0) 15.0 % 12.0-15.5 PLT (test code = 777-3) 347 166-358 MPV (test code = 15028-9) 9.4 fL 9.5-12.9 L NRBC/100 WBC (test code = 0662728368) 0.0 0.0-10.0 NRBC x10^3 (test code = 4508230343) See_Comment [Automated messa ge] The system which generated this result transmitted reference range: 10*3/?L. The reference range was not used to interpret this result as normal/abnormal. GRAN MAT (NEUT) % (test code = 770-8) 60.2 % IMM GRAN % (test code = 2766058852) 0.40 % LYMPH % (test code = 736-9) 31.3 % MONO % (test code = 5905-5) 5.8 % EOS % (test code = 713-8) 1.8 % BASO % (test code = 706-2) 0.5 % GRAN MAT x10^3(ANC) (test code = 6006590100) 6.36 10*3/uL 1.88-7.09 IMM GRAN x10^3 (test code = 5930749880) 0.04 10*3/uL 0.00-0.06 LYMPH x10^3 (test code = 731-0) 3.30 10*3/uL 1.32-3.29 H MONO x10^3 (test code = 742-7) 0.61 10*3/uL 0.33-0.92 EOS x10^3 (test code = 711-2) 0.19 10*3/uL 0.03-0.39 BASO x10^3 (test code = 704-7) 0.05 10*3/uL 0.01-0.07 Lab Interpretation (test code = 97416-8) [facility]normal [facility] HeightsTroponin [id number] 07:55:17* Test Item Value Reference Range Interpretation Comme nts TROPONIN I (test code = 6923744871) 0.000 ng/mL <=0.034 DARWIN (test code = [...] of biotin. Lab Interpretation (test code = 67840-0) [facility] HeightsXR CHEST 1 [id number] 06:16:28Exam: Chest (1 View), 06/06/2024 11:30 PM. Ordering Physician: OLIVIA GARCIA. History: Chest pain. Technique: AP view of the chest. Technical Quality: Adequate. Comparison: Chest radiograph 05/17/2024. Findings: Normal cardiac silhouette size. ?No airspace consolidation, pleuraleffusion, or pneumothorax. No acute osseous abnormality.[facility] HeightsPOCT TYNO8976-27-36 05:19:00* Test Item Value Reference Range Interpretation Comme nts POCT PREG (test code = 1605) Negative On board controls acceptable with C Line (test code = 3574) Yes POCT PREG LOT # (test code = 3575) [id number] POCT PREG TEST DATE ( test code = 3576) 04/11/2025 Lab Interpretation (test cod e = 56777-8) Normal [facility] HeightsTroponin [id number] 05:00:24* Test Item Value Reference Range Interpretation Comme [facility] TROPONIN I (test code = 8397778810) 0.000 ng/mL <=0.034 DARWIN (test code = [...] of biotin. Lab Interpretation (test code = 31546-5) Normal [facility] HeightsCom. Metabolic Panel (41253)2024-06-07 05:00:19* Test Item Value Reference Range Interpretation Comme nts NA (test code = 5473834844) 139 mmol/L 135-145 K (test code = 9814695391) 3.6 mmol/L 3.5-5.0 CL (test code = 7870906551) 108 mmol/L 98-108 CO2 TOTAL (test code = 9555391932) 22 mmol/L 23-31 L AGAP (test code = 5011896604) 9 2-16 BUN (test code = 7358498666) 10 mg/dL 7-23 GLUCOSE (test code = 3833118364) 144 mg/dL 70-110 H CREATININE (test code = 2160-0) 0.62 mg/dL 0.50-1.04 TOTAL BILI (test code = 5521166457) 0.1-1.1 L CALCIUM (test code = 5974850860) 9.2 mg/dL 8.6-10.6 T PROTEIN (test code = 5562156491) 6.5 g/dL 6.3-8.2 ALBUMIN (test code = 6640899242) 3.7 g/dL 3.5-5.0 ALK PHOS (test code = 0019212175) 69 U/L 34-122 ALTv (test code = 1742-6) 14 U/L 5-35 AST(SGOT) (test code = 6891191265) 15 U/L 13-40 eGFR (test code = 54775-0) 112.1 mL/min/1.73m2 CKD-EPI eGFR (2020). Assuming creatinine has been stable day-to-day for at least three months, the eGFR indicates Category G1 (>= 90 mL/min/1.73 m2) Lab Interpretation (test code = 39228-1) Abnormal [facility] with Xndn9469-86-53 04:38:25* Test Item Value Reference Range Interpretation [...] 32.8 g/dL 31.6-35.1 RDW-SD (test code = 30230-7) 44.1 fL 39.0-49.9 RDW-CV (test code = 788-0) 14.9 % 12.0-15.5 PLT (test code = 777-3) 358 166-358 MPV (test code = 40047-2) 9.4 fL 9.5-12.9 L NRBC/100 WBC (test code = 0944274404) 0.0 0.0-10.0 NRBC x10^3 (test code = 1238361718) See_Comment [Automated messa ge] The system which generated this result transmitted reference range: 10*3/?L. The reference range was not used to interpret this result as normal/abnormal. GRAN MAT (NEUT) % (test code = 770-8) 58.2 % IMM GRAN % (test code = 6967949609) 0.40 % LYMPH % (test code = 736-9) 34.1 % MONO % (test code = 5905-5) 4.7 % EOS % (test code = 713-8) 2.3 % BASO % (test code = 706-2) 0.3 % GRAN MAT x10^3(ANC) (test code = 3612806237) 5.33 10*3/uL 1.88-7.09 IMM GRAN x10^3 (test code = 6212033568) 0.04 10*3/uL 0.00-0.06 LYMPH x10^3 (test code = 731-0) 3.12 10*3/uL 1.32-3.29 MONO x10^3 (test code = 742-7) 0.43 10*3/uL 0.33-0.92 EOS x10^3 (test code = 711-2) 0.21 10*3/uL 0.03-0.39 BASO x10^3 (test code = 704-7) 0.03 10*3/uL 0.01-0.07 Lab Interpretation (test code = 81828-1) [facility] HEAD WO PAWEIPLJ1693-64-98 18:53:41EXAM: CT HEAD WO CONTRAST HISTORY: 44 [...] clear. Thecalvarium and central skull base are unremarkable.[facility]XR FOREARM 2 VW [id number] 04:08:39EXAM: XR HAND 3+ VW RIGHT, XR [...] No radiopaqueforeign body. Mild diffuse soft tissue swelling.[facility] 3+ VW MTFRD4615-20-98 04:08:39EXAM: XR HAND 3+ VW RIGHT, XR [...] No radiopaqueforeign body. Mild diffuse soft tissue swelling.[facility]XR ELBOW <3 VW [id number] 04:08:39EXAM: XR HAND 3+ VW RIGHT, XR [...] radiopaqueforeign body. Mild diffuse soft tissue swelling. [facility]CT MAXILLOFACIAL/MANDIBLE WO CONTRAST 2024-05-18 03:36:27ORDERING PHYSICIAN:ALESHA FRANKLIN [...] no evidence of retrobulbar hematomas or retroconal fatstranding.[facility] CERVICAL SPINE WO CONTRAST 2024-05-18 03:28:19ORDERING PHYSICIAN: Jayant EDUARDO ?AUFDER[place]IDE HISTORY: Neck trauma, dangerous injury mechanism (Age [...] tissues arenormal. The visualized lung apices are clear.[facility] Ahql3846-53-09 02:00:00* Test Item Value Reference Range Interpretation Comme nts POCT PREG (test code = 1605) Negative On board controls acceptable with C Line (test code = 3574) Yes Lab Interpretation (test cod e = 10386-5) Normal [facility]. Metabolic Panel (90939)2024-05-08 01:19:56* Test Item Value Reference Range Interpretation Comme nts NA (test code = 4913989706) 139 mmol/L 135-145 K (test code = 3531753718) 3.3 mmol/L 3.5-5.0 L CL (test code = 3142852510) 107 mmol/L 98-108 CO2 TOTAL (test code = 2746904002) 22 mmol/L 23-31 L AGAP (test code = 6868977676) 10 2-16 BUN (test code = 2398010995) 5 mg/dL 7-23 L GLUCOSE (test code = 3483799825) 131 mg/dL 70-110 H CREATININE (test code = 2160-0) 0.72 mg/dL 0.50-1.04 TOTAL BILI (test code = 8991161476) 0.1-1.1 L CALCIUM (test code = 6400186545) 9.3 mg/dL 8.6-10.6 T PROTEIN (test code = 7294832851) 7.0 g/dL 6.3-8.2 ALBUMIN (test code = 9177529695) 4.1 g/dL 3.5-5.0 ALK PHOS (test code = 0128806864) 76 U/L 34-122 ALTv (test code = 1742-6) 27 U/L 5-35 AST(SGOT) (test code = 6821591127) 30 U/L 13-40 eGFR (test code = 28229-0) 105.2 mL/min/1.73m2 CKD-EPI eGFR (2020). Assuming creatinine has been stable day-to-day for at least three months, the eGFR indicates Category G1 (>= 90 mL/min/1.73 m2) Lab Interpretation (test code = 67242-2) [facility] HeightsTroponin [id number] 01:18:54* Test Item Value Reference Range Interpretation Comme nts TROPONIN I (test code = 1237162878) 0.003 ng/mL <=0.034 DARWIN (test code = [...] of biotin. Lab Interpretation (test code = 61668-3) Normal [facility] HeightsMagnesium2024-11-01 01:07:50* Test Item Value Reference Range Interpretation Comme nts MAGNESIUM (test code = 5223177067) 1.7 mg/dL 1.7-2.4 Lab Interpretation (test cod e = 60460-2) Normal [facility] HeightsLipase2024-11-01 01:07:30* Test Item Value Reference Range Interpretation Comme nts LIPASE (test code = 3345144933) 97 U/L 0-220 Lab Interpretation (test cod e = 80315-1) Normal [facility] with Tykt7762-50-98 00:51:30* Test Item Value Reference Range Interpretation [...] 33.2 g/dL 31.6-35.1 RDW-SD (test code = 98927-6) 43.6 fL 39.0-49.9 RDW-CV (test code = 788-0) 14.8 % 12.0-15.5 PLT (test code = 777-3) 382 166-358 H MPV (test code = 33927-7) 9.7 fL 9.5-12.9 NRBC/100 WBC (test code = 8315144441) 0.0 0.0-10.0 NRBC x10^3 (test code = 3899452316) See_Comment [Automated messa ge] The system which generated this result transmitted reference range: 10*3/?L. The reference range was not used to interpret this result as normal/abnormal. GRAN MAT (NEUT) % (test code = 770-8) 63.3 % IMM GRAN % (test code = 2323828255) 0.40 % LYMPH % (test code = 736-9) 27.5 % MONO % (test code = 5905-5) 5.4 % EOS % (test code = 713-8) 2.9 % BASO % (test code = 706-2) 0.5 % GRAN MAT x10^3(ANC) (test code = 7510047108) 7.25 10*3/uL 1.88-7.09 H IMM GRAN x10^3 (test code = 0151365388) 0.05 10*3/uL 0.00-0.06 LYMPH x10^3 (test code = 731-0) 3.15 10*3/uL 1.32-3.29 MONO x10^3 (test code = 742-7) 0.62 10*3/uL 0.33-0.92 EOS x10^3 (test code = 711-2) 0.33 10*3/uL 0.03-0.39 BASO x10^3 (test code = 704-7) 0.06 10*3/uL 0.01-0.07 Lab Interpretation (test code = 96606-1) Abnormal [facility] or plasma cardiac troponin I panel by high sensitivity gkeqme6167-58-18 17:16:00* Test Item Value Reference Range Interpretation Comme nts Troponin T High Sensitivity (test code = 66016-8) < 6.0 [facility] CtrBilirubin gfnyv7129-54-92 17:14:00* Test Item Value Reference Range Interpretation Comme nts Total Bilirubin (test code = ACE1379) < 0.2 [facility] CtrEstimated glomerular filtration rate (GFR) xreamwnovwdyf5391-97-21 17:14:00* Test Item Value Reference Range Interpretation Comme nts Glomerular Filtration Rate C alc (test code = 783201350) > 60.00 [facility] CtrBUN/creatinine tdssu7107-28-45 17:14:00* Test Item Value Reference Range Interpretation Comme nts BUN/Creatinine Ratio (test c ode = 72247655) 7.3 [facility] BtbWX98347-90-61 17:14:00* Test Item Value Reference Range Interpretation Comme nts Carbon Dioxide Level (test c ode = 36378789) 22 [facility] CtrAnion gap jexwylmqcfw2249-70-55 17:14:00* Test Item Value Reference Range Interpretation Comme nts Anion Gap (test code = 55976399) 16.6 [facility] CtrCalcium zyjhs2711-21-12 17:14:00* Test Item Value Reference Range Interpretation Comme nts Calcium Level (test code = 14231431) 9.9 [facility] CtrGlobulin lkr7730-46-54 17:14:00* Test Item Value Reference Range Interpretation Comme nts Globulin (test code = 787334327) 3.1 [facility] CtrALT (SGPT) ser/ihcy6140-39-58 17:14:00* Test Item Value Reference Range Interpretation Comme nts Alanine Aminotransferase (AL T/SGPT) (test code = 1742-6) 10 [facility] CtrAmylase nfmll5122-43-24 17:14:00* Test Item Value Reference Range Interpretation Comme nts Amylase Level (test code = 1798-8) 48 [facility] ImqOqwsvr7175-91-33 17:14:00* Test Item Value Reference Range Interpretation Comme nts Lipase (test code = 85119063) 24 [facility] CtrALP ser/jlet4179-28-02 17:14:00* Test Item Value Reference Range Interpretation Comme nts Total Alkaline Phosphatase ( test code = 6768-6) 92 [facility] CtrSerum or plasma glucose measurement (mass/volume) 2024-04-10 17:14:00* Test Item Value Reference Range Interpretation Comme nts Random Glucose (test code = 2345-7) 109 [facility] CtrSerum or plasma urea nitrogen measurement (mass/volume)2024-04-10 17:14:00* Test Item Value Reference Range Interpretation Comme nts Blood Urea Nitrogen (test co de = 3094-0) 4 [facility] DxsXSW3545-97-85 17:14:00* Test Item Value Reference Range Interpretation Comme nts Aspartate Amino Transf (AST/ SGOT) (test code = LCO1070) 14 [facility] CtrAmphetamine ur tevsmz0175-02-42 17:13:00* Test Item Value Reference Range Interpretation Comme nts Urine Amphetamines Screen (t est code = 20530-5) NEGATIVE [facility] IltWfhhwlllp1626-56-82 17:13:00* Test Item Value Reference Range Interpretation Comme nts Methadone Level (test code = MEE3271) NEGATIVE [facility] CtrBenzodiazepines screen tz5236-45-80 17:13:00* Test Item Value Reference Range Interpretation Comme nts Urine Benzodiazepines Screen (test code = 220366201) POSITIVE [facility] CtrCannabinoids (5-pqlxzhl-SXV) qoqexfhntnh4130-86-99 17:13:00* Test Item Value Reference Range Interpretation Comme nts Urine Cannabinoids (test cod e = 395954724) NEGATIVE [facility] CtrCocaine metabolite hghhzm5363-84-13 17:13:00* Test Item Value Reference Range Interpretation Comme nts Urine Cocaine Metabolite (te st code = 832004401) NEGATIVE [facility] CtrOpiates vapkv8623-53-60 17:13:00* Test Item Value Reference Range Interpretation Comme [facility] Urine Opiates Screen (test c ode = 069958420) NEGATIVE [facility] CtrUrine hydrocodone measurement (mass/volume) 2024-04-10 17:13:00* Test Item Value Reference Range Interpretation Comme nts Hydrocodone Level (test code = 3681-4) NEGATIVE [facility] CtrUrine fentanyl measurement by confirmatory method (mass/volume)2024-04-10 17:13:00* Test Item Value Reference Range Interpretation Comme [facility] Urine Fentanyl Screen (test code = 48051-0) NEGATIVE [facility] CtrPhencyclidine (PCP) dl2388-26-04 17:13:00* Test Item Value Reference Range Interpretation Comme [facility] Urine Phencyclidine (PCP) Le edilson (test code = 932850160) NEGATIVE [facility] CtrPropoxyphene [Mass/volume] in Ceokj8307-28-59 17:13:00* Test Item Value Reference Range Interpretation Comme nts Propoxyphene Level (test cod e = 3545-1) NEGATIVE [facility] CtroxyCODONE [Mass/volume] in Sumds2046-03-75 17:13:00* Test Item Value Reference Range Interpretation Comme nts Oxycodone Level (test code = 54463-0) NEGATIVE [facility] CtrUrine leukocyte esterase gxhfdyctw6227-21-22 17:10:00* Test Item Value Reference Range Interpretation Comme nts Urine Leukocyte Esterase (te st code = 657356525) 3+ [facility] CtrRBC count ur lasc8198-25-41 17:08:00* Test Item Value Reference Range Interpretation Comme nts Urine RBC (test code = 798-9) 0-2 [facility] CtrUrine examination for white blood cells (WBC) 2024-04-10 17:08:00* Test Item Value Reference Range Interpretation Comme nts Urine WBC (test code = 087729124) >100 [facility] CtrAutomated epithelial cells count in urine sediment (number/area)2024-04-10 17:08:00* Test Item Value Reference Range Interpretation Comme nts Urine Epithelial Cells (test code = 38601-8) 6-10 [facility] CtrBacteria detection in urine sediment by light sgqltgwdbi9475-07-10 17:08:00* Test Item Value Reference Range Interpretation Comme nts Urine Bacteria (test code = 09066-5) Few [facility] by automated method 2024-04-10 17:08:00* Test Item Value Reference Range Interpretation Comme nts Urine Casts (test code = 44091-7) 0-2 [facility] CtrHCG ur BU6504-46-55 17:03:00* Test Item Value Reference Range Interpretation Comme nts Urine HCG, Qualitative (test code = 2106-3) NEGATIVE [facility] CtrColor of Urine by Ukim1714-12-84 17:03:00* Test Item Value Reference Range Interpretation Comme nts Urine Color (test code = 69269-7) Yellow [facility] CtrAppearance of Lsomx5135-69-00 17:03:00* Test Item Value Reference Range Interpretation Comme nts Urine Appearance (test code = 5767-9) Cloudy [facility] CtrUrine glucose nocjuunor7820-63-84 17:03:00* Test Item Value Reference Range Interpretation Comme nts Urine Glucose (UA) (test cod e = 2349-9) Negative [facility] CtrBilirubin vm0291-50-63 17:03:00* Test Item Value Reference Range Interpretation Comme nts Urine Bilirubin (test code = 916688471) Negative [facility] CtrKetones yi6668-28-51 17:03:00* Test Item Value Reference Range Interpretation Comme nts Urine Ketones (test code = 32913409) Negative [facility] CtrSpecific gravity of Urine by Automated test strip 2024-04-10 17:03:00* Test Item Value Reference Range Interpretation Comme nts Urine Specific [place] (test code = 07306-9) 1.006 [facility] CtrUrine blood obajaigqf8159-37-22 17:03:00* Test Item Value Reference Range Interpretation Comme nts Urine Blood (test code = 63121-2) Nonhemolyzed Trace [facility] CtrpH di7145-82-95 17:03:00* Test Item Value Reference Range Interpretation Comme nts Urine pH (test code = 2756-5) 6.000 [facility] CtrProtein vd4078-25-05 17:03:00* Test Item Value Reference Range Interpretation Comme nts Urine Protein (test code = 49135961) Negative [facility] CtrUrobilinogen, urine, jq7222-81-96 17:03:00* Test Item Value Reference Range Interpretation Comme nts Urine Urobilinogen (test cod e = 634064546) 0.2 [facility] bmervazlr8100-16-93 17:03:00* Test Item Value Reference Range Interpretation Comme nts Urine Nitrate (test code = 31203-8) Negative [facility] CtrAbsolute eosinophil zoqgg3207-73-86 17:00:00* Test Item Value Reference Range Interpretation Comme nts Eosinophils # (Auto) (test c ode = GQU7080) 0.25 [facility] CtrRBC hexsf3603-32-12 17:00:00* Test Item Value Reference Range Interpretation Comme nts Red Blood Count (test code = 44823849) 5.17 [facility] UkyGmhonebmdg0099-26-18 17:00:00* Test Item Value Reference Range Interpretation Comme nts Hematocrit (test code = 86603662) 41.9 [facility] CtrMCV (mean corpuscular volume) determination 2024-04-10 17:00:00* Test Item Value Reference Range Interpretation Comme nts Mean Corpuscular Volume (shailesh t code = 52639-8) 81.0 [facility] CtrMean corpuscular hemoglobin (MCH) determination 2024-04-10 17:00:00* Test Item Value Reference Range Interpretation Comme nts Mean Corpuscular Hemoglobin (test code = 16032096) 26.1 [facility] CtrMean corpuscular hemoglobin concentration (MCHC) [id number] 17:00:00* Test Item Value Reference Range Interpretation Comme [facility] Mean Corpuscular Hemoglobin Concent (test code = 62757437) 32.2 [facility] CtrRBC distribution width coefficient of variation 2024-04-10 17:00:00* Test Item Value Reference Range Interpretation Comme [facility] Red Cell Distribution Width (test code = 38299387) 15.2 [facility] CtrPlatelet [id number] 17:00:00* Test Item Value Reference Range Interpretation Comme [facility] Platelet Count (test code = 45843704) 343 [facility] CtrMean platelet [id number] 17:00:00* Test Item Value Reference Range Interpretation Comme [facility] Mean Platelet Volume (test c ode = 64815542) 9.3 [facility] CtrNeutrophils seg % [id number] 17:00:00* Test Item Value Reference Range Interpretation Comme [facility]ode [facility] Neutrophils (%) (Auto) (test code = 76492-5) 71.4 [facility] immature granulocyte [id number] 17:00:00* Test Item Value Reference Range Interpretation Comme [facility] Absolute Immature Granulocyt e (auto (test code = 76062-6) [facility]05 [facility] (number/volume) 2024-04-10 17:00:00* Test Item Value Reference Range Interpretation Comme [facility] Neutrophils # (Auto) (test c ode = 18120-7) 8.20 [facility] lymphocyte [id number] 17:00:00* Test Item Value Reference Range Interpretation Comme nts Lymphocytes # (Auto) (test c ode = 23418-8) 2.42 [facility] basophil fgmjk6634-02-19 17:00:00* Test Item Value Reference Range Interpretation Comme [facility] Basophils # (Auto) (test cod e = 26806966) 0.03 [facility] NRBC [id number] 17:00:00* Test Item Value Reference Range Interpretation Comme nts Nucleated Red Blood Cells # (test code = 252353713) 0 [facility] ABDOM[facility] PELVIS WO [id number] 00:27:38 Ordering Physician: LEIGH ROJO Clinical indication: [...] the spine.Multilevel lumbar central canal stenosis is present.[facility] Liiqi3384-90-54 23:13:34* Test Item Value Reference Range Interpretation Comme nts NA (test code = 4587862547) 136 mmol/L 135-145 K (test code = 4437308100) 3.7 mmol/L 3.5-5.0 CL (test code = 6206629069) 106 mmol/L 98-108 CO2 TOTAL (test code = 1333265344) 20 mmol/L 23-31 L AGAP (test code = 0524244766) 10 2-16 BUN (test code = 0422934879) 6 mg/dL 7-23 L GLUCOSE (test code = 3918952740) 149 mg/dL 70-110 H CREATININE (test code = 2160-0) 0.63 mg/dL 0.50-1.04 TOTAL BILI (test code = 3363407257) 0.3 mg/dL 0.1-1.1 CALCIUM (test code = 1961224479) 9.2 mg/dL 8.6-10.6 T PROTEIN (test code = 2538705259) 7.4 g/dL 6.3-8.2 ALBUMIN (test code = 9224908434) 4.3 g/dL 3.5-5.0 ALK PHOS (test code = 9922567233) 74 U/L 34-122 ALTv (test code = 1742-6) 20 U/L 5-35 AST(SGOT) (test code = 1326332780) 22 U/L 13-40 eGFR (test code = 54530-8) 111.6 mL/min/1.73m2 CKD-EPI eGFR (2020). Assuming creatinine has been stable day-to-day for at least three months, the eGFR indicates Category G1 (>= 90 mL/min/1.73 m2) Lab Interpretation (test code = 96212-0) [facility], Cxfyj2685-65-82 23:12:53* Test Item Value Reference Range Interpretation Comme nts LIPASE (test code = 5369280360) 104 U/L 0-220 Lab Interpretation (test cod e = 81486-7) [facility] Ygqu2984-45-25 23:01:00* Test Item Value Reference Range Interpretation Comme nts POCT PREG (test code = 1605) Negative On board controls acceptable with C Line (test code = 3574) Yes POCT PREG LOT # (test code = 3575) [id number] POCT PREG TEST DATE ( test code = 3576) Lab Interpretation (test cod e = 37032-2) [facility] with Fmiwnddqxasb0749-58-67 23:00:31* Test Item Value Reference Range Interpretation [...] 33.0 g/dL 31.6-35.1 RDW-SD (test code = 61207-9) 45.5 fL 39.0-49.9 RDW-CV (test code = 788-0) 15.3 % 12.0-15.5 PLT (test code = 777-3) 370 166-358 H MPV (test code = 38713-0) 9.3 fL 9.5-12.9 L NRBC/100 WBC (test code = 6530108107) 0.0 0.0-10.0 NRBC x10^3 (test code = 4432341572) See_Comment [Automated messa ge] The system which generated this result transmitted reference range: 10*3/?L. The reference range was not used to interpret this result as normal/abnormal. GRAN MAT (NEUT) % (test code = 770-8) 71.8 % IMM GRAN % (test code = 6741642389) 0.60 % LYMPH % (test code = 736-9) 20.9 % MONO % (test code = 5905-5) 4.9 % EOS % (test code = 713-8) 1.4 % BASO % (test code = 706-2) 0.4 % GRAN MAT x10^3(ANC) (test code = 3927445191) 9.75 10*3/uL 1.88-7.09 H IMM GRAN x10^3 (test code = 7399644196) 0.08 10*3/uL 0.00-0.06 H LYMPH x10^3 (test code = 731-0) 2.83 10*3/uL 1.32-3.29 MONO x10^3 (test code = 742-7) 0.66 10*3/uL 0.33-0.92 EOS x10^3 (test code = 711-2) 0.19 10*3/uL 0.03-0.39 BASO x10^3 (test code = 704-7) 0.05 10*3/uL 0.01-0.07 Lab Interpretation (test code = 68023-7) [facility] PELVIS W QITNKJXE4360-12-05 05:07:16ORDERING PHYSICIAN:OLIVIA MUSA CLINICAL INFORMATION: ? Abdominal [...] are clear. There are nosuspicious focal osseous lesions.[facility] Complete Metabolic Lqiyo2824-68-26 04:38:59* Test Item Value Reference Range Interpretation Comme nts NA (test code = 8079666681) 138 mmol/L 135-145 K (test code = 7954022635) 3.7 mmol/L 3.5-5.0 CL (test code = 5012030540) 108 mmol/L 98-108 CO2 TOTAL (test code = 4584525442) 22 mmol/L 23-31 L AGAP (test code = 3705865192) 8 2-16 BUN (test code = 9400996720) 12 mg/dL 7-23 GLUCOSE (test code = 4293306815) 98 mg/dL 70-110 CREATININE (test code = 2160-0) 0.62 mg/dL 0.50-1.04 TOTAL BILI (test code = 3276952762) 0.4 mg/dL 0.1-1.1 CALCIUM (test code = 9780745280) 8.9 mg/dL 8.6-10.6 T PROTEIN (test code = 5259856512) 7.1 g/dL 6.3-8.2 ALBUMIN (test code = 7397721690) 3.8 g/dL 3.5-5.0 ALK PHOS (test code = 1449540965) 89 U/L 34-122 ALTv (test code = 1742-6) 17 U/L 5-35 AST(SGOT) (test code = 8839345801) 22 U/L 13-40 eGFR (test code = 89906-4) 112.8 mL/min/1.73m2 CKD-EPI eGFR (2020). Assuming creatinine has been stable day-to-day for at least three months, the eGFR indicates Category G1 (>= 90 mL/min/1.73 m2) Lab Interpretation (test code = 67881-9) [facility], Svixg2602-94-83 04:38:58* Test Item Value Reference Range Interpretation Comme nts LIPASE (test code = 8577206516) 136 U/L 0-220 Lab Interpretation (test cod e = 69079-5) [facility] with Vrrpkdbmlfpw0413-20-13 04:19:14* Test Item Value Reference Range Interpretation [...] 32.2 g/dL 31.6-35.1 RDW-SD (test code = 59637-2) 50.2 fL 39.0-49.9 H RDW-CV (test code = 788-0) 17.3 % 12.0-15.5 H PLT (test code = 777-3) 377 166-358 H MPV (test code = 24194-6) 9.4 fL 9.5-12.9 L NRBC/100 WBC (test code = 2195339451) 0.0 0.0-10.0 NRBC x10^3 (test code = 6700559431) See_Comment [Automated messa ge] The system which generated this result transmitted reference range: 10*3/?L. The reference range was not used to interpret this result as normal/abnormal. GRAN MAT (NEUT) % (test code = 770-8) 65.3 % IMM GRAN % (test code = 1994560638) 0.40 % LYMPH % (test code = 736-9) 26.1 % MONO % (test code = 5905-5) 6.2 % EOS % (test code = 713-8) 1.6 % BASO % (test code = 706-2) 0.4 % GRAN MAT x10^3(ANC) (test code = 5274866617) 7.33 10*3/uL 1.88-7.09 H IMM GRAN x10^3 (test code = 6307620991) 0.04 10*3/uL 0.00-0.06 LYMPH x10^3 (test code = 731-0) 2.93 10*3/uL 1.32-3.29 MONO x10^3 (test code = 742-7) 0.70 10*3/uL 0.33-0.92 EOS x10^3 (test code = 711-2) 0.18 10*3/uL 0.03-0.39 BASO x10^3 (test code = 704-7) 0.05 10*3/uL 0.01-0.07 Lab Interpretation (test code = 45130-3) [facility] [id number] 03:40:00* Test Item Value Reference Range Interpretation Comme nts POCT PREG (test code = 1605) Negative On board controls acceptable with C Line (test code = 3574) Yes POCT PREG LOT # (test code = 3575) [id number] POCT PREG TEST DATE ( test code = 3576) 2024-10-13 Lab Interpretation (test cod e = 13271-3) Normal [facility] HeightsXR [id number] 04:35:04Ordering physician: ROBERTO RICHARDS INDICATION: Abdominal pain COMPARISON: CT of the abdomen and pelv is dated 03/09/2023 FINDINGS: Supine AP view of the abdomen and pelvis. There is no bowelobstruction or generalized constipation.[facility] Mkih9373-54-16 02:30:00* Test Item Value Reference Range Interpretation Comme nts POCT PREG (test code = 1605) Negative On board controls acceptable with C Line (test code = 3574) Yes POCT PREG LOT # (test code = 3575) [id number] POCT PREG TEST DATE ( test code = 3576) 2024-09-15 Lab Interpretation (test cod e = 22177-2) Normal [facility] WITH [id number] 00:05:06* Test Item Value Reference Range Interpretation [...] 34.2 g/dL 31.6-35.1 RDW-SD (test code = 87360-7) 41.5 fL 39.0-49.9 RDW-CV (test code = 788-0) 14.5 % 12.0-15.5 PLT (test code = 777-3) 384 See_Comment H [Automated messa ge] The system which generated this result transmitted reference range: 166 - 358 10*3/?L. The reference range was not used to interpret this result as normal/abnormal. MPV (test code = 15612-4) 9.6 fL 9.5-12.9 GRAN MAT (NEUT) % (test code = 770-8) 66.0 % IMM GRAN % (test code = 9228756172) 0.50 % LYMPH % (test code = 736-9) 27.4 % MONO % (test code = 5905-5) 4.6 % EOS % (test code = 713-8) 1.1 % BASO % (test code = 706-2) 0.4 % GRAN MAT x10^3(ANC) (test code = 7226852152) 7.96 10*3/uL 1.88-7.09 H IMM GRAN x10^3 (test code = 9476371238) 0.06 10*3/uL 0.00-0.06 LYMPH x10^3 (test code = 731-0) 3.30 10*3/uL 1.32-3.29 H MONO x10^3 (test code = 742-7) 0.56 10*3/uL 0.33-0.92 EOS x10^3 (test code = 711-2) 0.13 10*3/uL 0.03-0.39 BASO x10^3 (test code = 704-7) 0.05 10*3/uL 0.01-0.07 Lab Interpretation (test code = 05511-3) [facility] MET[facility]OLIC PANEL (57265)2023-05-09 23:27:13* Test Item Value Reference Range Interpretation Comme nts NA (test code = 1334171247) 137 mmol/L 135-145 K (test code = 4204155409) 3.3 mmol/L 3.5-5.0 L CL (test code = 2868404116) 103 mmol/L 98-108 CO2 TOTAL (test code = 1333894395) 20 mmol/L 23-31 L AGAP (test code = 8891594591) 14 2-16 BUN (test code = 3949374259) 5 mg/dL 7-23 L GLUCOSE (test code = 1894557569) 146 mg/dL 70-110 H CREATININE (test code = 1260095433) 0.60 mg/dL 0.50-1.04 TOTAL BILI (test code = 0449226470) 0.3 mg/dL 0.1-1.1 CALCIUM (test code = 5124410857) 9.3 mg/dL 8.6-10.6 T PROTEIN (test code = 3109694351) 7.9 g/dL 6.3-8.2 ALBUMIN (test code = 9480065716) 4.4 g/dL 3.5-5.0 ALK PHOS (test code = 8724225637) 105 U/L 34-122 ALTv (test code = 1742-6) 38 U/L 5-35 H AST(SGOT) (test code = 0173300413) 21 U/L 13-40 eGFR (test code = 23859-0) 113.7 mL/min/1.73m2 CKD-EPI eGFR (2020). Assuming creatinine has been stable day-to-day for at least three months, the eGFR indicates Category G1 (>= 90 mL/min/1.73 m2) Lab Interpretation (test code = 45261-1) [facility]2023-[facility]-02 23:27:13* Test Item Value Reference Range Interpretation Comme nts LIPASE (test code = 9662423821) 142 U/L 0-220 Lab Interpretation (test cod e = 37937-6) Normal [facility] METABOLIC PANEL (80590)2023-04-30 23:41:47* Test Item Value Reference Range Interpretation Comme nts NA (test code = 9257475669) 139 mmol/L 135-145 K (test code = 2204060484) 3.3 mmol/L 3.5-5.0 L CL (test code = 4843566802) 105 mmol/L 98-108 CO2 TOTAL (test code = 2962447334) 20 mmol/L 23-31 L AGAP (test code = 6898556697) 14 2-16 BUN (test code = 5400671768) 6 mg/dL 7-23 L GLUCOSE (test code = 1367140048) 119 mg/dL 70-110 H CREATININE (test code = 1451322836) 0.59 mg/dL 0.50-1.04 TOTAL BILI (test code = 5321475036) 0.3 mg/dL 0.1-1.1 CALCIUM (test code = 7192610159) 9.7 mg/dL 8.6-10.6 T PROTEIN (test code = 0918926134) 7.6 g/dL 6.3-8.2 ALBUMIN (test code = 6395387029) 4.2 g/dL 3.5-5.0 ALK PHOS (test code = 5861280329) 78 U/L 34-122 ALTv (test code = 1742-6) 24 U/L 5-35 AST(SGOT) (test code = 5678654820) 24 U/L 13-40 eGFR (test code = 6666604690) 110.7 mL/min/1.73m2 DARWIN (test code = DARWIN) [...] imaging tests). Lab Interpretation (test code = 34613-9) Abnormal [facility] WITH [id number] 23:29:07* Test Item Value Reference Range Interpretation Comme nts WBC (test code = 6690-2) 11.56 See_Comment H [Automated messa ge] The system which generated this result transmitted reference range: 4.30 - 11.10 10*3/?L. The reference range was not used to interpret this result as normal/abnormal. RBC (test code = 789-8) 5.02 See_Comment [Automated messa ge] The system which [...] 33.7 g/dL 31.6-35.1 RDW-SD (test code = 37123-4) 41.5 fL 39.0-49.9 RDW-CV (test code = 788-0) 14.3 % 12.0-15.5 PLT (test code = 777-3) 335 See_Comment [Automated messa ge] The system which generated this result transmitted reference range: 166 - 358 10*3/?L. The reference range was not used to interpret this result as normal/abnormal. MPV (test code = 24513-0) 9.7 fL 9.5-12.9 NRBC/100 WBC (test code = 8152110451) 0.0 See_Comment [Automated [employer] ssage] The system which generated this result transmitted reference range: 0.0 - 10.0 /100 WBCs. The reference range was not used to interpret this result as normal/abnormal. NRBC x10^3 (test code = 4170316568) See_Comment [Automated messa ge] The system which generated this result transmitted reference range: 10*3/?L. The reference range was not used to interpret this result as normal/abnormal. GRAN MAT (NEUT) % (test code = 770-8) 65.7 % IMM GRAN % (test code = 7623888197) 0.50 % LYMPH % (test code = 736-9) 25.4 % MONO % (test code = 5905-5) 6.7 % EOS % (test code = 713-8) 1.2 % BASO % (test code = 706-2) 0.5 % GRAN MAT x10^3(ANC) (test code = 3778067719) 7.59 10*3/uL 1.88-7.09 H IMM GRAN x10^3 (test code = 3763718546) 0.06 10*3/uL 0.00-0.06 LYMPH x10^3 (test code = 731-0) 2.94 10*3/uL 1.32-3.29 MONO x10^3 (test code = 742-7) 0.77 10*3/uL 0.33-0.92 EOS x10^3 (test code = 711-2) 0.14 10*3/uL 0.03-0.39 BASO x10^3 (test code = 704-7) 0.06 10*3/uL 0.01-0.07 Lab Interpretation (test code = 94255-7) [facility] [id number] 22:59:00* Test Item Value Reference Range Interpretation Comme nts POCT PREG (test code = 1605) Negative On board controls acceptable with C Line (test code = 3574) Yes POCT PREG LOT # (test code = 3575) [id number] POCT PREG TEST DATE ( test code = 3576) 07/10/2024 Lab Interpretation (test cod e = 11297-2) [facility] [id number] 02:36:34* Test Item Value Reference Range Interpretation Comme nts TROPONIN I (test code = 6741677809) 0.000 ng/mL <=0.034 DARWIN (test code = [...] of biotin. Lab Interpretation (test code = 97267-3) Normal [facility] HeightsN-TERMINAL DWN-NLA6281-17-11 02:34:17* Test Item Value Reference Range Interpretation Comme [facility] NT-proBNP (test code = 09988-3) 40 pg/mL <=125 Lab Interpretation (test cod e = 46943-3) Normal [facility]ACTIV[facility] PARTIAL THRMPLAS [id number] 02:33:37* Test Item Value Reference Range Interpretation Comme [facility] APTT Patient (test code = 3173-2) 25 See_Comment [Automated message] The system which generated this result transmitted reference range: 23 - 38 Seconds. The reference range was not used to interpret this result as normal/abnormal. DARWIN (test code = DARWIN) The [facility] patient population mean normal value for aPTT is 30 seconds. Lab Interpretation (test code = 82440-6) Normal [facility] HeightsPROTHROMBIN TIME / [id number] 02:31:36* Test Item Value Reference Range Interpretation Comme [facility] PROTIME PATIENT (test code = 5964-2) [...] the indications. Lab Interpretation (test code = 76198-7) [facility] METABOLIC PANEL (58203)2023-04-17 02:24:56* Test Item Value Reference Range Interpretation Comme nts NA (test code = 5487542769) 142 mmol/L 135-145 K (test code = 3503889610) 3.1 mmol/L 3.5-5.0 L CL (test code = 4118609418) 108 mmol/L 98-108 CO2 TOTAL (test code = 2123679604) 20 mmol/L 23-31 L AGAP (test code = 6596028551) 14 2-16 BUN (test code = 6540271582) 4 mg/dL 7-23 L GLUCOSE (test code = 2192655317) 107 mg/dL 70-110 CREATININE (test code = 9027354231) 0.61 mg/dL 0.50-1.04 TOTAL BILI (test code = 4101512407) 0.2 mg/dL 0.1-1.1 CALCIUM (test code = 0611095578) 9.1 mg/dL 8.6-10.6 T PROTEIN (test code = 9811860495) 7.0 g/dL 6.3-8.2 ALBUMIN (test code = 4157460076) 3.9 g/dL 3.5-5.0 ALK PHOS (test code = 3920224701) 69 U/L 34-122 ALTv (test code = 1742-6) 21 U/L 5-35 AST(SGOT) (test code = 7270234153) 21 U/L 13-40 eGFR (test code = 2411111624) 106.5 mL/min/1.73m2 DARWIN (test code = DARWIN) [...] imaging tests). Lab Interpretation (test code = 74628-3) [facility]2023-[facility]-11 02:24:56* Test Item Value Reference Range Interpretation Comme nts LIPASE (test code = 9604766974) 104 U/L 0-220 Lab Interpretation (test cod e = 35260-6) [facility] WITH [id number] 02:13:31* Test Item Value Reference Range Interpretation Comme nts WBC (test code = 6690-2) 10.74 See_Comment [Automated DataArta ge] The system which generated this result [...] 34.5 g/dL 31.6-35.1 RDW-SD (test code = 69624-0) 39.1 fL 39.0-49.9 RDW-CV (test code = 788-0) 13.5 % 12.0-15.5 PLT (test code = 777-3) 324 See_Comment [Automated DataArta ge] The system which generated this result transmitted reference range: 166 - 358 10*3/?L. The reference range was not used to interpret this result as normal/abnormal. MPV (test code = 92667-6) 9.3 fL 9.5-12.9 L NRBC/100 WBC (test code = 0659983918) 0.0 See_Comment [Automated me ssage] The system which generated this result transmitted reference range: 0.0 - 10.0 /100 WBCs. The reference range was not used to interpret this result as normal/abnormal. NRBC x10^3 (test code = 2523156195) See_Comment [Automated messa ge] The system which generated this result transmitted reference range: 10*3/?L. The reference range was not used to interpret this result as normal/abnormal. GRAN MAT (NEUT) % (test code = 770-8) 65.2 % IMM GRAN % (test code = 1903897869) 0.40 % LYMPH % (test code = 736-9) 26.5 % MONO % (test code = 5905-5) 5.8 % EOS % (test code = 713-8) 1.7 % BASO % (test code = 706-2) 0.4 % GRAN MAT x10^3(ANC) (test code = 8926901349) 7.01 10*3/uL 1.88-7.09 IMM GRAN x10^3 (test code = 4742502849) 0.04 10*3/uL 0.00-0.06 LYMPH x10^3 (test code = 731-0) 2.85 10*3/uL 1.32-3.29 MONO x10^3 (test code = 742-7) 0.62 10*3/uL 0.33-0.92 EOS x10^3 (test code = 711-2) 0.18 10*3/uL 0.03-0.39 BASO x10^3 (test code = 704-7) 0.04 10*3/uL 0.01-0.07 Lab Interpretation (test code = 84605-3) [facility] [id number] 02:11:00* Test Item Value Reference Range Interpretation Comme nts POCT PREG (test code = 1605) Negative On board controls acceptable with C Line (test code = 3574) Yes POCT PREG LOT # (test code = 3575) [id number] POCT PREG TEST DATE ( test code = 3576) 2024-09-04 Lab Interpretation (test cod e = 23704-7) [facility]TR[facility] [id number] 23:59:14* Test Item Value Reference Range Interpretation Comme nts TROPONIN I (test code = 1818713484) 0.000 ng/mL <=0.034 DARWIN (test code = [...] of biotin. Lab Interpretation (test code = 41235-9) [facility] MET[facility]OLIC PANEL (70856)2023-04-08 23:47:52* Test Item Value Reference Range Interpretation Comme nts NA (test code = 2561609564) 138 mmol/L 135-145 K (test code = 0834382739) 3.4 mmol/L 3.5-5.0 L CL (test code = 4094236706) 103 mmol/L 98-108 CO2 TOTAL (test code = 7150370254) 22 mmol/L 23-31 L AGAP (test code = 0979152454) 13 2-16 BUN (test code = 6962976406) 6 mg/dL 7-23 L GLUCOSE (test code = 1912812723) 106 mg/dL 70-110 CREATININE (test code = 4335876137) 0.91 mg/dL 0.50-1.04 TOTAL BILI (test code = 6299713752) 0.2 mg/dL 0.1-1.1 CALCIUM (test code = 2260090425) 8.7 mg/dL 8.6-10.6 T PROTEIN (test code = 1057301389) 7.4 g/dL 6.3-8.2 ALBUMIN (test code = 4938358118) 4.1 g/dL 3.5-5.0 ALK PHOS (test code = 5236971102) 71 U/L 34-122 ALTv (test code = 1742-6) 28 U/L 5-35 AST(SGOT) (test code = 9506422049) 28 U/L 13-40 eGFR (test code = 6320415986) 67.2 mL/min/1.73m2 DARWIN (test code = DARWIN) [...] imaging tests). Lab Interpretation (test code = 50174-7) [facility]20[facility] 23:47:52* Test Item Value Reference Range Interpretation Comme nts MAGNESIUM (test code = 0576924565) 2.0 mg/dL 1.7-2.4 Lab Interpretation (test cod e = 95579-6) [facility] 23:47:52* Test Item Value Reference Range Interpretation Comme nts LIPASE (test code = 8366703355) 74 U/L 0-220 Lab Interpretation (test cod e = 59310-8) Normal [facility] WITH [id number] 23:36:30* Test Item Value Reference Range Interpretation [...] 34.5 g/dL 31.6-35.1 RDW-SD (test code = 08208-0) 39.3 fL 39.0-49.9 RDW-CV (test code = 788-0) 13.6 % 12.0-15.5 PLT (test code = 777-3) 305 See_Comment [Automated messa ge] The system which generated this result transmitted reference range: 166 - 358 10*3/?L. The reference range was not used to interpret this result as normal/abnormal. MPV (test code = 15078-4) 9.6 fL 9.5-12.9 NRBC/100 WBC (test code = 5710846894) 0.0 See_Comment [Automated [employer] ssage] The system which generated this result transmitted reference range: 0.0 - 10.0 /100 WBCs. The reference range was not used to interpret this result as normal/abnormal. NRBC x10^3 (test code = 5173000750) See_Comment [Automated messa ge] The system which generated this result transmitted reference range: 10*3/?L. The reference range was not used to interpret this result as normal/abnormal. GRAN MAT (NEUT) % (test code = 770-8) 66.5 % IMM GRAN % (test code = 7351088507) 0.30 % LYMPH % (test code = 736-9) 25.3 % MONO % (test code = 5905-5) 5.2 % EOS % (test code = 713-8) 2.3 % BASO % (test code = 706-2) 0.4 % GRAN MAT x10^3(ANC) (test code = 1942484082) 6.61 10*3/uL 1.88-7.09 IMM GRAN x10^3 (test code = 6261520265) 0.03 10*3/uL 0.00-0.06 LYMPH x10^3 (test code = 731-0) 2.52 10*3/uL 1.32-3.29 MONO x10^3 (test code = 742-7) 0.52 10*3/uL 0.33-0.92 EOS x10^3 (test code = 711-2) 0.23 10*3/uL 0.03-0.39 BASO x10^3 (test code = 704-7) 0.04 10*3/uL 0.01-0.07 Lab Interpretation (test code = 19427-6) Abnormal [facility] [id number] 02:51:00* Test Item Value Reference Range Interpretation Comme nts POCT PREG (test code = 1605) Negative On board controls acceptable with C Line (test code = 3574) Yes POCT PREG LOT # (test code = 3575) [id number] POCT PREG TEST DATE ( test code = 3576) 07/10/2024 Lab Interpretation (test cod e = 71799-7) Normal [facility] [id number] 03:26:00* Test Item Value Reference Range Interpretation Comme nts POCT PREG (test code = 1605) Negative On board controls acceptable with C Line (test code = 3574) Yes POCT PREG LOT # (test code = 3575 [id number] POCT PREG TEST DATE ( test code = 3576) Lab Interpretation (test cod e = 03162-3) [id number]* Test Item Value Reference Range Interpretation Comme nts LIPASE (test code = 7135703887) 2049 U/L 0-220 H Lab Interpretation (test cod e = 26093-2) [facility] [id number] 22:30:10* Test Item Value Reference Range Interpretation [...] 34.6 g/dL 31.6-35.1 RDW-SD (test code = 25655-5) 42.7 fL 39.0-49.9 RDW-CV (test code = 788-0) 14.6 % 12.0-15.5 PLT (test code = 777-3) 331 See_Comment [Automated messa ge] The system which generated this result transmitted reference range: 166 - 358 10*3/?L. The reference range was not used to interpret this result as normal/abnormal. MPV (test code = 05483-0) 9.7 fL 9.5-12.9 NRBC/100 WBC (test code = 7943136026) 0.0 See_Comment [Automated me ssage] The system which generated this result transmitted reference range: 0.0 - 10.0 /100 WBCs. The reference range was not used to interpret this result as normal/abnormal. NRBC x10^3 (test code = 6378287585) See_Comment [Automated messa ge] The system which generated this result transmitted reference range: 10*3/?L. The reference range was not used to interpret this result as normal/abnormal. GRAN MAT (NEUT) % (test code = 770-8) 65.7 % IMM GRAN % (test code = 1181454024) 0.50 % LYMPH % (test code = 736-9) 26.5 % MONO % (test code = 5905-5) 5.4 % EOS % (test code = 713-8) 1.5 % BASO % (test code = 706-2) 0.4 % GRAN MAT x10^3(ANC) (test code = 4433115059) 8.05 10*3/uL 1.88-7.09 H IMM GRAN x10^3 (test code = 3868438738) 0.06 10*3/uL 0.00-0.06 LYMPH x10^3 (test code = 731-0) 3.24 10*3/uL 1.32-3.29 MONO x10^3 (test code = 742-7) 0.66 10*3/uL 0.33-0.92 EOS x10^3 (test code = 711-2) 0.18 10*3/uL 0.03-0.39 BASO x10^3 (test code = 704-7) 0.05 10*3/uL 0.01-0.07 Lab Interpretation (test code = 43709-5) Abnormal [facility]. METABOLIC PANEL (05623)2023-02-15 22:27:47* Test Item Value Reference Range Interpretation Comme nts NA (test code = 5614276121) 138 mmol/L 135-145 K (test code = 0988614045) 3.7 mmol/L 3.5-5.0 CL (test code = 7985427391) 105 mmol/L 98-108 CO2 TOTAL (test code = 8878529239) 23 mmol/L 23-31 AGAP (test code = 3683938553) 10 2-16 BUN (test code = 5428381980) 6 mg/dL 7-23 L GLUCOSE (test code = 4326153575) 92 mg/dL 70-110 CREATININE (test code = 2182716415) 0.77 mg/dL 0.50-1.04 TOTAL BILI (test code = 4582551062) 0.7 mg/dL 0.1-1.1 CALCIUM (test code = 6274997513) 9.0 mg/dL 8.6-10.6 T PROTEIN (test code = 8756352286) 7.5 g/dL 6.3-8.2 ALBUMIN (test code = 8686269210) 4.0 g/dL 3.5-5.0 ALK PHOS (test code = 1954396882) 101 U/L 34-122 ALTv (test code = 1742-6) 25 U/L 5-35 AST(SGOT) (test code = 3819413319) 36 U/L 13-40 eGFR (test code = 1094229126) 81.8 mL/min/1.73m2 DARWIN (test code = DARWIN) [...] imaging tests). Lab Interpretation (test code = 99218-3) [facility] 20:56:28* Test Item Value Reference Range Interpretation Comments D-DIMER (test code = 9486074061) 0.44 See_Comment H [Automated message] The system [...] a diagnosis. Lab Interpretation (test code = 86874-7) [facility] [id number] 01:15:16* Test Item Value Reference Range Interpretation Comments TROPONIN I (test code = 2217250648) 0.001 ng/mL See_Comment [Automated message] The system [...] of biotin. Lab Interpretation (test code = 57553-4) [facility] [id number] 22:52:31* Test Item Value Reference Range Interpretation Comments TROPONIN I (test code = 3261968221) 0.001 ng/mL See_Comment [Automated message] The system [...] of biotin. Lab Interpretation (test code = 23008-3) [facility] [id number] 22:49:33* Test Item Value Reference Range Interpretation Comme nts NT-proBNP (test code = 4788129555) 145 pg/mL See_Comment H [Automated message] The system which generated this result transmitted reference range: <=125. The reference range was not used to interpret this result as normal/abnormal. DARWIN (test code = DARWIN) Biotin has been reported to cause a negative bias, interpret results relative to patient's use of biotin. Lab Interpretation (test code = 38885-7) [facility] (NA, K, CL, CO2, GLUCOSE, BUN, CREATININE, CA)2022-01-09 22:40:32* Test Item Value Reference Range Interpretation Comme nts NA (test code = 3831824838) 142 mmol/L 135-145 K (test code = 0418451299) 3.3 mmol/L 3.5-5.0 L CL (test code = 9152544043) 109 mmol/L 98-108 H CO2 TOTAL (test code = 0681509044) 22 mmol/L 23-31 L AGAP (test code = 0534654481) 2-16 BUN (test code = 5161421557) 9 mg/dL 7-23 GLUCOSE (test code = 5933664665) 116 mg/dL 70-110 H CREATININE (test code = 0846464281) 0.69 mg/dL 0.50-1.04 CALCIUM (test code = 3172547883) 9.2 mg/dL 8.6-10.6 eGFR (test code = 4010053951) mL/min/1.73m2 DARWIN (test code = DARWIN) Association [...] imaging tests). Lab Interpretation (test code = 34069-6) Abnormal [facility] WITH [id number] 22:29:09* Test Item Value Reference Range Interpretation Comme nts WBC (test code = 6690-2) See_Comment [Automated messa ge] The system which generated this result transmitted reference range: 4.30 - 11.10 10*3/?L. The reference range was not used to interpret this result as normal/abnormal. RBC (test code = 789-8) See_Comment [Automated DataArta ge] The system which generated this result [...] 34.4 g/dL 31.6-35.1 RDW-SD (test code = 65068-4) 40.7 fL 39.0-49.9 RDW-CV (test code = 788-0) 14.1 % 12.0-15.5 PLT (test code = 777-3) See_Comment [Automated DataArta ge] The system which generated this result transmitted reference range: 166 - 358 10*3/?L. The reference range was not used to interpret this result as normal/abnormal. MPV (test code = 55313-1) 9.6 fL 9.5-12.9 NRBC/100 WBC (test code = 1273875505) See_Comment [Automated [employer] ssage] The system which generated this result transmitted reference range: 0.0 - 10.0 /100 WBCs. The reference range was not used to interpret this result as normal/abnormal. NRBC x10^3 (test code = 4288944164) <0.01 See_Comment [Automated messa ge] The system which generated this result transmitted reference range: 10*3/?L. The reference range was not used to interpret this result as normal/abnormal. GRAN MAT (NEUT) % (test code = 770-8) 54.7 % IMM GRAN % (test code = 3605879824) 0.40 % LYMPH % (test code = 736-9) 33.8 % MONO % (test code = 5905-5) 7.1 % EOS % (test code = 713-8) 3.3 % BASO % (test code = 706-2) 0.7 % GRAN MAT x10^3(ANC) (test code = 7074164890) 4.87 10*3/uL 1.88-7.09 IMM GRAN x10^3 (test code = 6873619978) 0.04 10*3/uL 0.00-0.06 LYMPH x10^3 (test code = 731-0) 3.01 10*3/uL 1.32-3.29 MONO x10^3 (test code = 742-7) 0.63 10*3/uL 0.33-0.92 EOS x10^3 (test code = 711-2) 0.29 10*3/uL 0.03-0.39 BASO x10^3 (test code = 704-7) 0.06 10*3/uL 0.01-0.07 Lab Interpretation (test code = 98167-1) Abnormal [facility] [id number] 06:45:45* Test Item Value Reference Range Interpretation Comments TROPONIN I (test code = 8657799558) 0.000 ng/mL See_Comment [Automated message] The system [...] of biotin. Lab Interpretation (test code = 68730-4) [facility] [id number] 05:00:55 * Test Item Value Reference Range Interpretation Comme nts TSH (test code = 2764900823) See_Comment [Automated messa ge] The system which generated this result transmitted reference range: 0.45 - 4.70 mIU/L. The reference range was not used to interpret this result as normal/abnormal. Lab Interpretation (test code = 16073-9) Normal [facility] [id number] 04:47:50* Test Item Value Reference Range Interpretation Comme nts FREE T4 (test code = 1914379985) See_Comment [Automated [employer]] The system which generated this result transmitted reference range: 0.78 - 2.20 ng/dL:. The reference range was not used to interpret this result as normal/abnormal. Lab Interpretation (test code = 41946-2) Normal [facility] [id number] 04:47:10* Test Item Value Reference Range Interpretation Comme nts FREE T3 (test code = 4685778001) 4.37 pg/mL 2.77-5.27 Lab Interpretation (test cod e = 69585-5) [facility] [id number] 04:42:07* Test Item Value Reference Range Interpretation Comments TROPONIN I (test code = 4932656554) 0.001 ng/mL See_Comment [Automated message] The system [...] of biotin. Lab Interpretation (test code = 17364-9) Normal [facility]. METABOLIC PANEL (61613)2021-12-14 04:30:28* Test Item Value Reference Range Interpretation Comme nts NA (test code = 3936199650) 141 mmol/L 135-145 K (test code = 9604023341) 3.6 mmol/L 3.5-5.0 CL (test code = 7494322301) 111 mmol/L 98-108 H CO2 TOTAL (test code = 5683318250) 19 mmol/L 23-31 L AGAP (test code = 0615217684) 2-16 BUN (test code = 4491452596) 15 mg/dL 7-23 GLUCOSE (test code = 3040187270) 113 mg/dL 70-110 H CREATININE (test code = 5060822095) 1.05 mg/dL 0.50-1.04 H TOTAL BILI (test code = 2442041705) 0.2 mg/dL 0.1-1.1 CALCIUM (test code = 9360038477) 9.8 mg/dL 8.6-10.6 T PROTEIN (test code = 8411154302) 6.8 g/dL 6.3-8.2 ALBUMIN (test code = 3669579923) 4.2 g/dL 3.5-5.0 ALK PHOS (test code = 0682794319) 73 U/L 34-122 ALTv (test code = 1742-6) 16 U/L 5-35 AST(SGOT) (test code = 8836760212) 19 U/L 13-40 eGFR (test code = 5093764398) mL/min/1.73m2 DARWIN (test code = DARWIN) Association [...] imaging tests). Lab Interpretation (test code = 41014-3) [facility] 04:29:48* Test Item Value Reference Range Interpretation Comme nts LIPASE (test code = 2431317951) 225 U/L 0-220 H Lab Interpretation (test cod e = 20825-6) [facility] [id number] 04:20:00* Test Item Value Reference Range Interpretation Comme nts POCT PREG (test code = 1605) negative On board controls acceptable with C Line (test code = 3574) present POCT PREG LOT # (test code = 3575) [id number] POCT PREG TEST DATE ( test code = 3576) 2023-05-07 Lab Interpretation (test cod e = 24687-7) [facility] WITH [id number] 04:01:25* Test Item Value Reference Range Interpretation Comme nts WBC (test code = 6690-2) See_Comment [Automated DataAr[employer] ge] The system which generated this result transmitted reference range: 4.30 - 11.10 10*3/?L. The reference range was not used to interpret this result as normal/abnormal. RBC (test code = 789-8) See_Comment H [Automated DataAr[employer] ge] The system which generated this result [...] 34.3 g/dL 31.6-35.1 RDW-SD (test code = 21670-0) 39.5 fL 39.0-49.9 RDW-CV (test code = 788-0) 13.6 % 12.0-15.5 PLT (test code = 777-3) See_Comment [Automated DataAr[employer] ge] The system which generated this result transmitted reference range: 166 - 358 10*3/?L. The reference range was not used to interpret this result as normal/abnormal. MPV (test code = 43301-6) 9.9 fL 9.5-12.9 NRBC/100 WBC (test code = 3435294153) See_Comment [Automated [employer] ssage] The system which generated this result transmitted reference range: 0.0 - 10.0 /100 WBCs. The reference range was not used to interpret this result as normal/abnormal. NRBC x10^3 (test code = 3169943726) <0.01 See_Comment [Automated DataAr[employer] ge] The system which generated this result transmitted reference range: 10*3/?L. The reference range was not used to interpret this result as normal/abnormal. GRAN MAT (NEUT) % (test code = 770-8) 51.5 % IMM GRAN % (test code = 6768912077) 0.50 % LYMPH % (test code = 736-9) 35.8 % MONO % (test code = 5905-5) 9.4 % EOS % (test code = 713-8) 2.2 % BASO % (test code = 706-2) 0.6 % GRAN MAT x10^3(ANC) (test code = 3427950117) 5.37 10*3/uL 1.88-7.09 IMM GRAN x10^3 (test code = 2686767311) 0.05 10*3/uL 0.00-0.06 LYMPH x10^3 (test code = 731-0) 3.73 10*3/uL 1.32-3.29 H MONO x10^3 (test code = 742-7) 0.98 10*3/uL 0.33-0.92 H EOS x10^3 (test code = 711-2) 0.23 10*3/uL 0.03-0.39 BASO x10^3 (test code = 704-7) 0.06 10*3/uL 0.01-0.07 Lab Interpretation (test code = 40680-2) Abnormal [facility] [id number] 04:04:13* Test Item Value Reference Range Interpretation Comments TROPONIN I (test code = 7491434146) 0.001 ng/mL See_Comment [Automated message] The system [...] of biotin. Lab Interpretation (test code = 73952-5) [facility] [id number] 02:56:00* Test Item Value Reference Range Interpretation Comme nts POCT PREG (test code = 1605) negative On board controls acceptable with C Line (test code = 3574) present POCT PREG LOT # (test code = 3575) [id number] POCT PREG TEST DATE ( test code = 3576) 2023-04-06 Lab Interpretation (test cod e = 78016-0) Normal [facility] [id number] 02:15:30* Test Item Value Reference Range Interpretation Comments TROPONIN I (test code = 1421717072) 0.000 ng/mL See_Comment [Automated message] The system [...] of biotin. Lab Interpretation (test code = 92828-8) [facility] [id number] 02:12:14* Test Item Value Reference Range Interpretation Comme nts NT-proBNP (test code = 1124482236) 109 pg/mL See_Comment [Automated message] The system which generated this result transmitted reference range: <=125. The reference range was not used to interpret this result as normal/abnormal. DARWIN (test code = DARWIN) Biotin has been reported to cause a negative bias, interpret results relative to patient's use of biotin. Lab Interpretation (test code = 77307-1) [facility] METABOLIC PANEL (95774)2021-11-12 02:04:12* Test Item Value Reference Range Interpretation Comme nts NA (test code = 5178753191) 140 mmol/L 135-145 K (test code = 8405685761) 4.0 mmol/L 3.5-5.0 CL (test code = 5392246520) 111 mmol/L 98-108 H CO2 TOTAL (test code = 6702422801) 17 mmol/L 23-31 L AGAP (test code = 5206338226) 2-16 BUN (test code = 5815354066) 9 mg/dL 7-23 GLUCOSE (test code = 5513640860) 105 mg/dL 70-110 CREATININE (test code = 7910933779) 0.72 mg/dL 0.50-1.04 TOTAL BILI (test code = 4067477242) 0.4 mg/dL 0.1-1.1 CALCIUM (test code = 6168834573) 9.3 mg/dL 8.6-10.6 T PROTEIN (test code = 8838912992) 6.6 g/dL 6.3-8.2 ALBUMIN (test code = 3920438037) 4.0 g/dL 3.5-5.0 ALK PHOS (test code = 0141519422) 70 U/L 34-122 ALTv (test code = 1742-6) 19 U/L 5-35 AST(SGOT) (test code = 8072366657) 21 U/L 13-40 eGFR (test code = 8299619664) mL/min/1.73m2 DARWIN (test code = DARWIN) Association [...] imaging tests). Lab Interpretation (test code = 30675-5) [facility] 02:03:32* Test Item Value Reference Range Interpretation Comme nts LIPASE (test code = 5533949476) 173 U/L 0-220 Lab Interpretation (test cod e = 14943-8) Normal [facility] WITH [id number] 01:43:53* Test Item Value Reference Range Interpretation Comme nts WBC (test code = 6690-2) See_Comment [Automated DataArta ge] The system which generated this result [...] 33.7 g/dL 31.6-35.1 RDW-SD (test code = 87833-3) 41.3 fL 39.0-49.9 RDW-CV (test code = 788-0) 14.3 % 12.0-15.5 PLT (test code = 777-3) See_Comment [Automated messa ge] The system which generated this result transmitted reference range: 166 - 358 10*3/?L. The reference range was not used to interpret this result as normal/abnormal. MPV (test code = 91637-6) 9.7 fL 9.5-12.9 NRBC/100 WBC (test code = 8670598009) See_Comment [Automated [employer] ssage] The system which generated this result transmitted reference range: 0.0 - 10.0 /100 WBCs. The reference range was not used to interpret this result as normal/abnormal. NRBC x10^3 (test code = 2301622135) <0.01 See_Comment [Automated messa ge] The system which generated this result transmitted reference range: 10*3/?L. The reference range was not used to interpret this result as normal/abnormal. GRAN MAT (NEUT) % (test code = 770-8) 62.6 % IMM GRAN % (test code = 5619213629) 0.50 % LYMPH % (test code = 736-9) 27.0 % MONO % (test code = 5905-5) 6.5 % EOS % (test code = 713-8) 2.9 % BASO % (test code = 706-2) 0.5 % GRAN MAT x10^3(ANC) (test code = 2839618779) 6.30 10*3/uL 1.88-7.09 IMM GRAN x10^3 (test code = 6056400421) 0.05 10*3/uL 0.00-0.06 LYMPH x10^3 (test code = 731-0) 2.71 10*3/uL 1.32-3.29 MONO x10^3 (test code = 742-7) 0.65 10*3/uL 0.33-0.92 EOS x10^3 (test code = 711-2) 0.29 10*3/uL 0.03-0.39 BASO x10^3 (test code = 704-7) 0.05 10*3/uL 0.01-0.07 Lab Interpretation (test code = 67758-3) [facility] [id number] 02:21:00* Test Item Value Reference Range Interpretation Comme nts POCT PREG (test code = 1605) Negative On board controls acceptable with C Line (test code = 3574) Present Lab Interpretation (test cod e = 46651-0) [facility] Metabolic [id number] 02:05:50* Test Item Value Reference Range Interpretation Comme nts NA (test code = 2644223750) 137 mmol/L 135-145 K (test code = 5292997905) 3.9 mmol/L 3.5-5.0 CL (test code = 2445790131) 109 mmol/L 98-108 H CO2 TOTAL (test code = 4049367020) 19 mmol/L 23-31 L AGAP (test code = 8641653823) 2-16 BUN (test code = 0926705071) 10 mg/dL 7-23 GLUCOSE (test code = 4920941415) 101 mg/dL 70-110 CREATININE (test code = 4124860004) 0.80 mg/dL 0.50-1.04 TOTAL BILI (test code = 7262878120) 0.3 mg/dL 0.1-1.1 CALCIUM (test code = 5907369601) 8.8 mg/dL 8.6-10.6 T PROTEIN (test code = 4443665375) 6.6 g/dL 6.3-8.2 ALBUMIN (test code = 7301836425) 4.0 g/dL 3.5-5.0 ALK PHOS (test code = 0096365927) 71 U/L 34-122 ALTv (test code = 1742-6) 18 U/L 5-35 AST(SGOT) (test code = 3978115746) 20 U/L 13-40 eGFR (test code = 8948657924) mL/min/1.73m2 DARWIN (test code = DARWIN) Association [...] imaging tests). Lab Interpretation (test code = 50729-9) [facility], [id number] 02:05:25* Test Item Value Reference Range Interpretation Comme nts LIPASE (test code = 0214839702) 96 U/L 0-220 Lab Interpretation (test cod e = 76526-0) [facility]CBC with Qlfidpatmstg2825-53-76 01:53:06* Test Item Value Reference Range Interpretation Comme nts WBC (test code = 6690-2) See_Comment H [Automated DataArta ge] The system which generated this result [...] 34.3 g/dL 31.6-35.1 RDW-SD (test code = 39556-3) 40.5 fL 39.0-49.9 RDW-CV (test code = 788-0) 14.4 % 12.0-15.5 PLT (test code = 777-3) See_Comment [Automated messa ge] The system which generated this result transmitted reference range: 166 - 358 10*3/?L. The reference range was not used to interpret this result as normal/abnormal. MPV (test code = 81054-0) 9.4 fL 9.5-12.9 L NRBC/100 WBC (test code = 8888650414) See_Comment [Automated me ssage] The system which generated this result transmitted reference range: 0.0 - 10.0 /100 WBCs. The reference range was not used to interpret this result as normal/abnormal. NRBC x10^3 (test code = 5004515148) <0.01 See_Comment [Automated messa ge] The system which generated this result transmitted reference range: 10*3/?L. The reference range was not used to interpret this result as normal/abnormal. GRAN MAT (NEUT) % (test code = 770-8) 59.8 % IMM GRAN % (test code = 6136765318) 0.40 % LYMPH % (test code = 736-9) 31.0 % MONO % (test code = 5905-5) 6.3 % EOS % (test code = 713-8) 2.0 % BASO % (test code = 706-2) 0.5 % GRAN MAT x10^3(ANC) (test code = 8879934951) 6.73 10*3/uL 1.88-7.09 IMM GRAN x10^3 (test code = 4897294398) 0.05 10*3/uL 0.00-0.06 LYMPH x10^3 (test code = 731-0) 3.50 10*3/uL 1.32-3.29 H MONO x10^3 (test code = 742-7) 0.71 10*3/uL 0.33-0.92 EOS x10^3 (test code = 711-2) 0.23 10*3/uL 0.03-0.39 BASO x10^3 (test code = 704-7) 0.06 10*3/uL 0.01-0.07 Lab Interpretation (test code = 37475-4) [facility]PORI Okqb4542-76-78 01:45:00* Test Item Value Reference Range Interpretation Comme nts POCT PREG (test code = 1605) negatibe On board controls acceptable with C Line (test code = 3574) present POCT PREG LOT # (test code = 3575) [id number] POCT PREG TEST DATE ( test code = 3576) 09/04/2022 Lab Interpretation (test cod e = 17249-5) [facility] [id number] 06:35:00* Test Item Value Reference Range Interpretation Comme nts POCT PREG (test code = 1605) negative On board controls acceptable with C Line (test code = 3574) present POCT PREG LOT # (test code = 3575) [id number] POCT PREG TEST DATE ( test code = 3576) Lab Interpretation (test cod e = 94321-5) [facility]TR[facility] [id number] 09:09:55* Test Item Value Reference Range Interpretation Comments TROPONIN I (test code = 7751449018) 0.001 ng/mL See_Comment [Automated message] The system [...] of biotin. Lab Interpretation (test code = 51574-2) [facility] HeightsD-HCAEJ3628-93-37 07:23:51* Test Item Value Reference Range Interpretation Comments D-DIMER (test code = 2483786527) See_Comment [Automated message] The system which generated [...] a diagnosis. Lab Interpretation (test code = 77867-5) [facility]2021-[facility] 06:11:26* Test Item Value Reference Range Interpretation Comme nts LIPASE (test code = 7714731200) 155 U/L 0-220 Lab Interpretation (test cod e = 81661-1) [facility] R1904-51-97 06:06:05* Test Item Value Reference Range Interpretation Comments TROPONIN I (test code = 6025999251) 0.002 ng/mL See_Comment [Automated message] The system [...] of biotin. Lab Interpretation (test code = 76216-6) [facility] [id number] 06:03:04* Test Item Value Reference Range Interpretation Comme nts NT-proBNP (test code = 8972521954) 19 pg/mL See_Comment [Automated message] The system which generated this result transmitted reference range: <=125. The reference range was not used to interpret this result as normal/abnormal. DARWIN (test code = DARWIN) Biotin has been reported to cause a negative bias, interpret results relative to patient's use of biotin. Lab Interpretation (test code = 11634-7) Normal [facility]. METABOLIC PANEL (58011)2021-05-28 05:54:25* Test Item Value Reference Range Interpretation Comme nts NA (test code = 5727133002) 136 mmol/L 135-145 K (test code = 4237562713) 3.2 mmol/L 3.5-5.0 L CL (test code = 3172125523) 109 mmol/L 98-108 H CO2 TOTAL (test code = 5686072304) 16 mmol/L 23-31 L AGAP (test code = 6410542109) 2-16 BUN (test code = 7051484462) 11 mg/dL 7-23 GLUCOSE (test code = 2104316835) 144 mg/dL 70-110 H CREATININE (test code = 8224640083) 0.84 mg/dL 0.50-1.04 TOTAL BILI (test code = 1986788620) 0.2 mg/dL 0.1-1.1 CALCIUM (test code = 0473128223) 9.4 mg/dL 8.6-10.6 T PROTEIN (test code = 9529022786) 6.9 g/dL 6.3-8.2 ALBUMIN (test code = 9499442509) 3.9 g/dL 3.5-5.0 ALK PHOS (test code = 4878547999) 106 U/L 34-122 ALTv (test code = 1742-6) 20 U/L 5-35 AST(SGOT) (test code = 1474130173) 17 U/L 13-40 eGFR (test code = 0349468405) mL/min/1.73m2 DARWIN (test code = DARWIN) Association [...] imaging tests). Lab Interpretation (test code = 60687-7) Abnormal [facility] WITH [id number] 05:40:06* Test Item Value Reference Range Interpretation Comme nts WBC (test code = 6690-2) See_Comment [Dr. [employer]] The system which generated this result transmitted reference range: 4.30 - 11.10 10*3/?L. The reference range was not used to interpret this result as normal/abnormal. RBC (test code = 789-8) See_Comment [Dr. [employer]] The system which generated this result transmitted [...] 33.3 g/dL 31.6-35.1 RDW-SD (test code = 10631-7) 39.7 fL 39.0-49.9 RDW-CV (test code = 788-0) 13.6 % 12.0-15.5 PLT (test code = 777-3) See_Comment [Automated [employer] ge] The system which generated this result transmitted reference range: 166 - 358 10*3/?L. The reference range was not used to interpret this result as normal/abnormal. MPV (test code = 24002-2) 9.5 fL 9.5-12.9 NRBC/100 WBC (test code = 9442088148) See_Comment [Automated [employer] ssage] The system which generated this result transmitted reference range: 0.0 - 10.0 /100 WBCs. The reference range was not used to interpret this result as normal/abnormal. NRBC x10^3 (test code = 1352484916) <0.01 See_Comment [Automated [employer] ge] The system which generated this result transmitted reference range: 10*3/?L. The reference range was not used to interpret this result as normal/abnormal. GRAN MAT (NEUT) % (test code = 770-8) 53.7 % IMM GRAN % (test code = 0101709394) 0.50 % LYMPH % (test code = 736-9) 36.0 % MONO % (test code = 5905-5) 6.3 % EOS % (test code = 713-8) 2.8 % BASO % (test code = 706-2) 0.7 % GRAN MAT x10^3(ANC) (test code = 3751231675) 5.38 10*3/uL 1.88-7.09 IMM GRAN x10^3 (test code = 0691346584) 0.05 10*3/uL 0.00-0.06 LYMPH x10^3 (test code = 731-0) 3.60 10*3/uL 1.32-3.29 H MONO x10^3 (test code = 742-7) 0.63 10*3/uL 0.33-0.92 EOS x10^3 (test code = 711-2) 0.28 10*3/uL 0.03-0.39 BASO x10^3 (test code = 704-7) 0.07 10*3/uL 0.01-0.07 Lab Interpretation (test code = 35420-1) [id number] 05:32:00* Test Item Value Reference Range Interpretation Comme nts POCT PREG (test code = 1605) negative On board controls acceptable with C Line (test code = 3574) present POCT PREG LOT # (test code = 3575) [id number] POCT PREG TEST DATE ( test code = 3576) 08/07/2022 Lab Interpretation (test cod e = 38627-0) [facility] [id number] 11:13:57* Test Item Value Reference Range Interpretation Comments TROPONIN I (test code = 3731273709) 0.002 ng/mL See_Comment [Automated message] The system [...] of biotin. Lab Interpretation (test code = 07690-9) Normal [facility] [facility] (NA, K, CL, CO2, GLUCOSE, BUN, CREATININE, CA)2021-04-08 11:04:34* Test Item Value Reference Range Interpretation Comme nts NA (test code = 3836618691) 140 mmol/L 135-145 K (test code = 1013171179) 3.6 mmol/L 3.5-5.0 CL (test code = 8563682238) 111 mmol/L 98-108 H CO2 TOTAL (test code = 8682254909) 22 mmol/L 23-31 L AGAP (test code = 8787675507) 2-16 BUN (test code = 5324085047) 10 mg/dL 7-23 GLUCOSE (test code = 7239756480) 104 mg/dL 70-110 CREATININE (test code = 0113742231) 0.70 mg/dL 0.50-1.04 CALCIUM (test code = 7724171412) 8.7 mg/dL 8.6-10.6 eGFR (test code = 7250909089) mL/min/1.73m2 DARWIN (test code = DARWIN) Association [...] imaging tests). Lab Interpretation (test code = 04579-8) Abnormal [facility] with Loyltalgfzfa9798-67-09 10:46:50* Test Item Value Reference Range Interpretation Comme nts WBC (test code = 6690-2) See_Comment [Automated fflap] The system which generated this result transmitted reference range: 4.30 - 11.10 10*3/?L. The reference range was not used to interpret this result as normal/abnormal. RBC (test code = 789-8) See_Comment [Automated DataArta ge] The system which generated this result [...] 33.5 g/dL 31.6-35.1 RDW-SD (test code = 70810-2) 42.0 fL 39.0-49.9 RDW-CV (test code = 788-0) 14.1 % 12.0-15.5 PLT (test code = 777-3) See_Comment [Automated [employer]] The system which generated this result transmitted reference range: 166 - 358 10*3/?L. The reference range was not used to interpret this result as normal/abnormal. MPV (test code = 38301-3) 10.0 fL 9.5-12.9 NRBC/100 WBC (test code = 5109975687) See_Comment [Automated [employer]] The system which generated this result transmitted reference range: 0.0 - 10.0 /100 WBCs. The reference range was not used to interpret this result as normal/abnormal. NRBC x10^3 (test code = 5576482580) <0.01 See_Comment [Automated [employer]] The system which generated this result transmitted reference range: 10*3/?L. The reference range was not used to interpret this result as normal/abnormal. GRAN MAT (NEUT) % (test code = 770-8) 59.1 % IMM GRAN % (test code = 5239119193) 0.70 % LYMPH % (test code = 736-9) 28.2 % MONO % (test code = 5905-5) 8.5 % EOS % (test code = 713-8) 3.0 % BASO % (test code = 706-2) 0.5 % GRAN MAT x10^3(ANC) (test code = 1133262855) 3.61 10*3/uL 1.88-7.09 IMM GRAN x10^3 (test code = 6918969673) 0.04 10*3/uL 0.00-0.06 LYMPH x10^3 (test code = 731-0) 1.72 10*3/uL 1.32-3.29 MONO x10^3 (test code = 742-7) 0.52 10*3/uL 0.33-0.92 EOS x10^3 (test code = 711-2) 0.18 10*3/uL 0.03-0.39 BASO x10^3 (test code = 704-7) 0.03 10*3/uL 0.01-0.07 [facility] [id number] 05:54:48* Test Item Value Reference Range Interpretation Comments TROPONIN I (test code = 8390342579) 0.002 ng/mL See_Comment [Automated message] The system [...] of biotin. Lab Interpretation (test code = 06067-3) [facility] (TSH)2021-04-08 00:51:16* Test Item Value Reference Range Interpretation Comme nts TSH (test code = 6892466780) See_Comment [Automated [employer] ge] The system which generated this result transmitted reference range: 0.45 - 4.70 mIU/L. The reference range was not used to interpret this result as normal/abnormal. Lab Interpretation (test code = 81936-3) [facility]cosylated Hemoglobin (A1C)2021-04-08 00:26:53* Test Item Value Reference Range Interpretation Comme nts HGB A1C (test code = 4548-4) 5.5 % 4.0-5.7 DARWIN (test code = DARWIN) Reference RangesNormal: <5.7%Prediabetes: 5.7 - 6.4%Diabetes: > 6.5% Lab Interpretation (test code = 19843-4) [facility] (Total Cholesterol, Triglycerides, HDL)2021-04-08 00:20:12* Test Item Value Reference Range Interpretation Comme nts CHOL (test code = 4121915655) 223 mg/dL 120-200 H HDL (test code = 6137647103) 35 mg/dL >50 L HDLC RATIO (test code = 8397124201) See_Comment H [Automated fflap] The system which generated this result transmitted reference range: <=4.5. The reference range was not used to interpret this result as normal/abnormal. TRIG (test code = 6096212668) 223 mg/dL 30-170 H LDL CHOL (test code = 93382-5) 143 mg/dL See_Comment [Automated fflap] The system which generated this result transmitted reference range: <=160. The reference range was not used to interpret this result as normal/abnormal. VLDL (test code = 4397901998) 45 mg/dL 5-60 Lab Interpretation (test code = 41581-7) [facility] HeightsMagnesium Qlifp2532-63-15 00:20:07* Test Item Value Reference Range Interpretation Comme nts MAGNESIUM (test code = 1503934061) 1.7 mg/dL 1.7-2.4 Lab Interpretation (test cod e = 79276-0) [facility]OL[facility] PAN[facility] (65958)2021-04-07 23:04:13* Test Item Value Reference Range Interpretation Comme nts NA (test code = 6538397857) 139 mmol/L 135-145 K (test code = 4193641494) 3.4 mmol/L 3.5-5.0 L CL (test code = 0876194445) 109 mmol/L 98-108 H CO2 TOTAL (test code = 6987128637) 22 mmol/L 23-31 L AGAP (test code = 5958696771) 2-16 BUN (test code = 3362517378) 10 mg/dL 7-23 GLUCOSE (test code = 1392483734) 97 mg/dL 70-110 CREATININE (test code = 4903958176) 0.84 mg/dL 0.50-1.04 TOTAL BILI (test code = 6405269410) 0.3 mg/dL 0.1-1.1 CALCIUM (test code = 0790721778) 9.2 mg/dL 8.6-10.6 T PROTEIN (test code = 1153326458) 6.6 g/dL 6.3-8.2 ALBUMIN (test code = 8030354717) 3.8 g/dL 3.5-5.0 ALK PHOS (test code = 7755092592) 69 U/L 34-122 ALTv (test code = 1742-6) 18 U/L 5-35 AST(SGOT) (test code = 2848299924) 19 U/L 13-40 eGFR (test code = 3326188683) mL/min/1.73m2 DARWIN (test code = DARWIN) Association [...] imaging tests). Lab Interpretation (test code = 10547-4) [facility] HeightsTROPONIN [id number] 22:33:04* Test Item Value Reference Range Interpretation Comments TROPONIN I (test code = 8332700520) 0.001 ng/mL See_Comment [Automated message] The system [...] of biotin. Lab Interpretation (test code = 77954-1) [facility] HeightsN-TERMINAL TOT-VRU9191-02-01 22:30:05* Test Item Value Reference Range Interpretation Comme nts NT-proBNP (test code = 4152013954) 352 pg/mL See_Comment H [Automated message] The system which generated this result transmitted reference range: <=125. The reference range was not used to interpret this result as normal/abnormal. DARWIN (test code = DARWIN) Biotin has been reported to cause a negative bias, interpret results relative to patient's use of biotin. Lab Interpretation (test code = 62538-2) [facility] HeightsACTIVATED PARTIAL THRMPLAS [id number] 22:28:48* Test Item Value Reference Range Interpretation Comme nts APTT Patient (test code = 3173-2) See_Comment [Automated message] The system which generated this result transmitted reference range: 23 - 38 Seconds. The reference range was not used to interpret this result as normal/abnormal. DARWIN (test code = DARWIN) The [facility] patient population mean normal value for aPTT is 30 seconds. Lab Interpretation (test code = 16676-0) [facility] HeightsPROTHROMBIN TIME / [id number] 22:26:44* Test Item Value Reference Range Interpretation Comme nts PROTIME PATIENT (test code = 5964-2) See_Comment [Automated DataArta ge] The system which generated this result transmitted reference range: 12.0 - 14.7 Seconds. The reference range was not used to interpret this result as normal/abnormal. INR (test code = 6301-6) Normal INR <1.1; Warfarin Therapeutic range 2.0 to 3.0 or 2.5 to 3.5, depending upon the indications. Lab Interpretation (test code = 54763-7) [facility]IPASE2021-10-01 22:20:05* Test Item Value Reference Range Interpretation Comme [facility] LIPASE (test code = 2440398067) 66 U/L 0-220 Lab Interpretation (test cod e = 65163-1) [facility] HeightsCBC WITH [id number] 22:07:01* Test Item Value Reference Range Interpretation Comme [facility] WBC (test code = 6690-2) See_Comment [Automated [employer]] The system which generated this result transmitted reference range: 4.30 - 11.10 10*3/?L. The reference range was not used to interpret this result as normal/abnormal. RBC (test code = 789-8) See_Comment [Automated [employer]] The system which generated this result transmitted [...] 33.2 g/dL 31.6-35.1 RDW-SD (test code = 11323-4) 41.6 fL 39.0-49.9 RDW-CV (test code = 788-0) 14.1 % 12.0-15.5 PLT (test code = 777-3) See_Comment [Automated DataArta ge] The system which generated this result transmitted reference range: 166 - 358 10*3/?L. The reference range was not used to interpret this result as normal/abnormal. MPV (test code = 88628-7) 9.2 fL 9.5-12.9 L NRBC/100 WBC (test code = 0890552845) See_Comment [Automated [employer] ssage] The system which generated this result transmitted reference range: 0.0 - 10.0 /100 WBCs. The reference range was not used to interpret this result as normal/abnormal. NRBC x10^3 (test code = 7100033016) <0.01 See_Comment [Automated DataAr[employer] ge] The system which generated this result transmitted reference range: 10*3/?L. The reference range was not used to interpret this result as normal/abnormal. GRAN MAT (NEUT) % (test code = 770-8) 61.6 % IMM GRAN % (test code = 6571764121) 0.60 % LYMPH % (test code = 736-9) 28.7 % MONO % (test code = 5905-5) 4.9 % EOS % (test code = 713-8) 3.7 % BASO % (test code = 706-2) 0.5 % GRAN MAT x10^3(ANC) (test code = 0746514533) 6.24 10*3/uL 1.88-7.09 IMM GRAN x10^3 (test code = 8025331296) 0.06 10*3/uL 0.00-0.06 LYMPH x10^3 (test code = 731-0) 2.90 10*3/uL 1.32-3.29 MONO x10^3 (test code = 742-7) 0.50 10*3/uL 0.33-0.92 EOS x10^3 (test code = 711-2) 0.37 10*3/uL 0.03-0.39 BASO x10^3 (test code = 704-7) 0.05 10*3/uL 0.01-0.07 Lab Interpretation (test code = 02190-7) [facility] HeightsURINALYSIS2021-07-08 08:49:55* Test Item Value Reference Range Interpretation Comme nts APPEARANCE (test code = 7834543995) Cloudy Clear A COLOR (test code = 1496470021) Yellow Yellow PH (test code = 5574898428) 4.8-8.0 SP GRAVITY (test code = 3502165224) 1.003-1.030 GLU U QUAL (test code = 8561437768) Normal Normal BLOOD (test code = 5831528918) Negative Negative KETONES (test code = 9358758699) Negative Negative PROTEIN (test code = 2887-8) Negative Negative UROBILIN (test code = 9226606312) Normal Normal BILIRUBIN (test code = 0789779393) 2 mg/dL Negative A NITRITE (test code = 5769500810) Negative Negative LEUK MARC (test code = 9659126952) 75/uL Negative A RBC/HPF (test code = 2601121404) See_Comment H [Automated messa ge] The system which generated this result transmitted reference range: 0 - 3 HPF. The reference range was not used to interpret this result as normal/abnormal. WBC/HPF (test code = 8274629355) See_Comment H [Automated messa ge] The system which generated this result transmitted reference range: 0 - 5 HPF. The reference range was not used to interpret this result as normal/abnormal. BACTERIA (test code = 6757423386) Moderate Negative A MUCOUS (test code = 9710599072) Slight Negative LPF A SQ EPITH (test code = 6953921510) HPF YEAST BUD (test code = 2365949686) See_Comment H [Automated messa ge] The system which generated this result transmitted reference range: <=1 HPF. The reference range was not used to interpret this result as normal/abnormal. Ictotest (test code = 9898403273) Negative Lab Interpretation (test code = 22482-4) [facility]COMP[facility] METABOLIC PANEL (15472)2021-01-12 08:49:44* Test Item Value Reference Range Interpretation Comme nts NA (test code = 1989849263) 137 mmol/L 135-145 K (test code = 6682839170) 4.6 mmol/L 3.5-5.0 CL (test code = 4882161860) 108 mmol/L 98-108 CO2 TOTAL (test code = 1534479669) 21 mmol/L 23-31 L AGAP (test code = 1835322463) 2-16 BUN (test code = 0141338264) 19 mg/dL 7-23 GLUCOSE (test code = 3305513440) 107 mg/dL 70-110 CREATININE (test code = 1656342559) 0.63 mg/dL 0.50-1.04 TOTAL BILI (test code = 7652926907) 0.4 mg/dL 0.1-1.1 CALCIUM (test code = 9901653963) 9.2 mg/dL 8.6-10.6 T PROTEIN (test code = 7659981370) 7.4 g/dL 6.3-8.2 ALBUMIN (test code = 3381305708) 4.2 g/dL 3.5-5.0 ALK PHOS (test code = 0573065092) 179 U/L 34-122 H ALTv (test code = 1742-6) 113 U/L 5-35 H AST(SGOT) (test code = 4729821860) 38 U/L 13-40 eGFR (test code = 9130269051) mL/min/1.73m2 DARWIN (test code = DARWIN) Association [...] imaging tests). Lab Interpretation (test code = 88160-5) Abnormal [facility] WITH QQKD3475-85-81 08:11:02* Test Item Value Reference Range Interpretation Comme nts WBC (test code = 6690-2) See_Comment H [Automated fflap] The system which generated this result transmitted reference range: 4.30 - 11.10 10*3/?L. The reference range was not used to interpret this result as normal/abnormal. RBC (test code = 789-8) See_Comment [Automated [employer]] The system which generated this result transmitted [...] 33.3 g/dL 31.6-35.1 RDW-SD (test code = 32465-4) 41.6 fL 39.0-49.9 RDW-CV (test code = 788-0) 14.0 % 12.0-15.5 PLT (test code = 777-3) See_Comment [Automated [employer]] The system which generated this result transmitted reference range: 166 - 358 10*3/?L. The reference range was not used to interpret this result as normal/abnormal. MPV (test code = 71329-0) 9.5 fL 9.5-12.9 NRBC/100 WBC (test code = 6477786863) See_Comment [Automated me ssage] The system which generated this result transmitted reference range: 0.0 - 10.0 /100 WBCs. The reference range was not used to interpret this result as normal/abnormal. NRBC x10^3 (test code = 1819694610) <0.01 See_Comment [Automated messa ge] The system which generated this result transmitted reference range: 10*3/?L. The reference range was not used to interpret this result as normal/abnormal. GRAN MAT (NEUT) % (test code = 770-8) 68.0 % IMM GRAN % (test code = 7072356955) 0.80 % LYMPH % (test code = 736-9) 23.6 % MONO % (test code = 5905-5) 5.1 % EOS % (test code = 713-8) 2.1 % BASO % (test code = 706-2) 0.4 % GRAN MAT x10^3(ANC) (test code = 3660226422) 8.86 10*3/uL 1.88-7.09 H IMM GRAN x10^3 (test code = 3847177245) 0.11 10*3/uL 0.00-0.06 H LYMPH x10^3 (test code = 731-0) 3.07 10*3/uL 1.32-3.29 MONO x10^3 (test code = 742-7) 0.66 10*3/uL 0.33-0.92 EOS x10^3 (test code = 711-2) 0.27 10*3/uL 0.03-0.39 BASO x10^3 (test code = 704-7) 0.05 10*3/uL 0.01-0.07 Lab Interpretation (test code = 55675-2) Abnormal [facility] [id number] 08:02:00* Test Item Value Reference Range Interpretation Comme nts POCT PREG (test code = 1605) negative On board controls acceptable with C Line (test code = 3574) positive POCT PREG LOT # (test code = 3575) [id number] POCT PREG TEST DATE ( test code = 3576) 07/07/2022 Lab Interpretation (test cod e = 54883-6) [facility]JACEKN Y0679-79-02 01:55:05* Test Item Value Reference Range Interpretation Comme nts TROPONIN I (test code = 0900921652) 0.000 ng/mL See_Comment [Automated message] The system [...] biotin. ? Lab Interpretation (test code = 21873-4) Normal [facility] 1 Agpt0035-01-66 23:41:46No radiographic evidence of an acute cardiopulmonary process. RL: 2109AFC: 31830 EXAM: XR CHEST 1 VW ORDERING PROVIDER: [...] EXAM: XR CHEST 1 VWORDERING PROVIDER: BAL FOSTER: JR COMPARISON: 12/04/2020 TECHNIQUE: Portable AP radiograph of the chest.FINDINGS: Overlying monitoring leads. There is no focal consolidation,pneumothorax or appreciable pleural effusion. The cardiomediastinalsilhouette is within normal limits. Trachea is midline. No acute osseousabnormality identified.IMPRESSIONNo radiographic evidence of an acute cardiopulmonary process.RL: 2109AFC: 11285 [facility] [id number] 23:07:21* Test Item Value Reference Range Interpretation Comme nts TROPONIN I (test code = 8706993196) 0.000 ng/mL See_Comment [Automated message] The system [...] biotin. ? Lab Interpretation (test code = 68609-2) [facility]-TERMINAL LQE-LVQ2971-25-05 23:04:20* Test Item Value Reference Range Interpretation Comme nts NT-proBNP (test code = 2382512824) 14 pg/mL See_Comment [Automated message] The system which generated this result transmitted reference range: <=125. The reference range was not used to interpret this result as normal/abnormal. DARWIN (test code = DARWIN) Biotin has been reported to cause a negative bias, interpret results relative to patient's use of biotin. Lab Interpretation (test code = 22882-0) [facility] (ALB, T.PRO, BILI T, BU/BC, ALT, AST, ALK PHOS)2020-12-10 22:58:16* Test Item Value Reference Range Interpretation Comme nts TOTAL BILI (test code = 4233109440) 0.5 mg/dL 0.1-1.1 BILI UNCON (test code = 5164189099) 0.3 mg/dL 0.1-1.1 BILI CONJ (test code = 6807835005) 0.0 mg/dL 0.0-0.3 T PROTEIN (test code = 5127841624) 8.1 g/dL 6.3-8.2 ALBUMIN (test code = 6708991376) 4.7 g/dL 3.5-5.0 ALK PHOS (test code = 7883954007) 104 U/L 34-122 ALTv (test code = 1742-6) 18 U/L 5-35 AST(SGOT) (test code = 9790789480) 23 U/L 13-40 Lab Interpretation (test cod e = 87432-9) [facility] (NA, K, CL, CO2, GLUCOSE, BUN, CREATININE, CA)2020-12-10 22:57:56* Test Item Value Reference Range Interpretation Comme nts NA (test code = 9596037474) 135 mmol/L 135-145 K (test code = 8328046532) 3.7 mmol/L 3.5-5.0 CL (test code = 6137811720) 105 mmol/L 98-108 CO2 TOTAL (test code = 3003629947) 18 mmol/L 23-31 L AGAP (test code = 6534549235) 2-16 BUN (test code = 3346332189) 14 mg/dL 7-23 GLUCOSE (test code = 2970874975) 108 mg/dL 70-110 CREATININE (test code = 7964518062) 0.56 mg/dL 0.50-1.04 CALCIUM (test code = 2995299456) 9.8 mg/dL 8.6-10.6 eGFR (test code = 1554924722) mL/min/1.73m2 DARWIN (test code = DARWIN) Association [...] imaging tests). Lab Interpretation (test code = 06701-1) [facility] HeightsLipase Kzuwp8972-74-13 22:57:56* Test Item Value Reference Range Interpretation Comme nts LIPASE (test code = 9294837869) 122 U/L 0-220 Lab Interpretation (test cod e = 42805-2) [facility] HeightsD-GQPPS2655-65-05 22:52:34* Test Item Value Reference Range Interpretation Comments D-DIMER (test code = 0766308302) See_Comment [Automated message] The system which generated [...] a diagnosis. Lab Interpretation (test code = 19351-0) [facility] HeightsUrinalysis2021-06-05 22:52:29* Test Item Value Reference Range Interpretation Comme nts APPEARANCE (test code = 3272399770) Hazy Clear A COLOR (test code = 3090936922) Yellow Yellow PH (test code = 8182123147) 4.8-8.0 SP GRAVITY (test code = 2206285371) 1.003-1.030 GLU U QUAL (test code = 0569717502) Normal Normal BLOOD (test code = 5566426811) Negative Negative KETONES (test code = 7949138487) Negative Negative PROTEIN (test code = 2887-8) Negative Negative UROBILIN (test code = 1628967062) Normal Normal BILIRUBIN (test code = 5397002015) 2 mg/dL Negative A NITRITE (test code = 9484782521) Negative Negative LEUK MARC (test code = 7331770623) 25/uL Negative A RBC/HPF (test code = 4671337384) See_Comment [Automated [employer]] The system which generated this result transmitted reference range: 0 - 3 HPF. The reference range was not used to interpret this result as normal/abnormal. WBC/HPF (test code = 1789538439) See_Comment [Automated [employer]] The system which generated this result transmitted reference range: 0 - 5 HPF. The reference range was not used to interpret this result as normal/abnormal. BACTERIA (test code = 2906584174) Few Negative A MUCOUS (test code = 9731236366) Slight Negative LPF A SQ EPITH (test code = 5543668192) HPF Lab Interpretation (test code = 37520-0) Abnormal [facility] with Hgdpjhehbosp4208-74-88 22:45:56* Test Item Value Reference Range Interpretation [...] 33.5 g/dL 31.6-35.1 RDW-SD (test code = 45952-6) 40.5 fL 39.0-49.9 RDW-CV (test code = 788-0) 13.3 % 12.0-15.5 PLT (test code = 777-3) See_Comment H [Automated message] The system which generated this result transmitted reference range: 166 - 358 10*3/?L. The reference range was not used to interpret this result as normal/abnormal. MPV (test code = 31428-3) 9.2 fL 9.5-12.9 L NRBC/100 WBC (test code = 9286054772) See_Comment [Automated message] The system which generated this result transmitted reference range: 0.0 - 10.0 /100 WBCs. The reference range was not used to interpret this result as normal/abnormal. NRBC x10^3 (test code = 0081743910) <0.01 See_Comment [Automated message] The system which generated this result transmitted reference range: 10*3/?L. The reference range was not used to interpret this result as normal/abnormal. GRAN MAT (NEUT) % (test code = 770-8) 73.4 % IMM GRAN % (test code = 9817420257) 0.50 % LYMPH % (test code = 736-9) 17.5 % MONO % (test code = 5905-5) 6.5 % EOS % (test code = 713-8) 1.6 % BASO % (test code = 706-2) 0.5 % GRAN MAT x10^3(ANC) (test code = 1120401899) 10.21 10*3/uL 1.88-7.09 H IMM GRAN x10^3 (test code = 7945172164) 0.07 10*3/uL 0.00-0.06 H LYMPH x10^3 (test code = 731-0) 2.44 10*3/uL 1.32-3.29 MONO x10^3 (test code = 742-7) 0.90 10*3/uL 0.33-0.92 EOS x10^3 (test code = 711-2) 0.22 10*3/uL 0.03-0.39 BASO x10^3 (test code = 704-7) 0.07 10*3/uL 0.01-0.07 Lab Interpretation (test code = 50260-9) [facility]POCT Zmaz1067-62-80 22:32:00* Test Item Value Reference Range Interpretation Comme nts POCT PREG (test code = 1605) negative On board controls acceptable with C Line (test code = 3574) present POCT PREG LOT # (test code = 3575) [id number] POCT PREG TEST DATE ( test code = 3576) 06/06/2022 Lab Interpretation (test cod e = 29183-1) [facility] HeightsUrinalysis2021-05-30 21:34:43* Test Item Value Reference Range Interpretation Comme nts APPEARANCE (test code = 4502624487) Clear Clear COLOR (test code = 3052123417) Yellow Yellow PH (test code = 0248407801) 4.8-8.0 SP GRAVITY (test code = 9032282638) 1.003-1.030 GLU U QUAL (test code = 1639810983) Normal Normal BLOOD (test code = 5576894028) Negative Negative KETONES (test code = 9460196048) Negative Negative PROTEIN (test code = 2887-8) Negative Negative UROBILIN (test code = 1599522303) Normal Normal BILIRUBIN (test code = 5902556696) Negative Negative NITRITE (test code = 0832306313) Negative Negative LEUK MARC (test code = 2985716907) Negative Negative RBC/HPF (test code = 3210147650) See_Comment [Automated DataAr[employer] ge] The system which generated this result transmitted reference range: 0 - 3 HPF. The reference range was not used to interpret this result as normal/abnormal. WBC/HPF (test code = 8997706874) <1 See_Comment [Automated DataArta ge] The system which generated this result transmitted reference range: 0 - 5 HPF. The reference range was not used to interpret this result as normal/abnormal. BACTERIA (test code = 9561674658) Negative Negative MUCOUS (test code = 9434422012) Slight Negative LPF A SQ EPITH (test code = 7116933807) HPF Lab Interpretation (test code = 27158-2) [facility]POCT Btfr5352-22-59 21:18:00* Test Item Value Reference Range Interpretation Comme nts POCT PREG (test code = 1605) negative On board controls acceptable with C Line (test code = 3574) present POCT PREG LOT # (test code = 3575) [id number] POCT PREG TEST DATE ( test code = 3576) 06/06/2022 Lab Interpretation (test cod e = 84155-9) [facility] HeightsXR ANKLE 3[facility] VW EQTF6134-08-71 21:11:00No acute bony abnormality. Preliminary Report Dictated [...] reviewed this study and agree with the abovereport.[facility] Hospitaleladio [id number] 20:59:44* Test Item Value Reference Range Interpretation Comme nts TROPONIN I (test code = 2072257820) 0.000 ng/mL See_Comment [Automated message] The system [...] biotin. ? Lab Interpretation (test code = 39934-9) [facility] Orpxj1529-97-82 20:48:20* Test Item Value Reference Range Interpretation Comme nts LIPASE (test code = 5295240352) 96 U/L 0-220 Lab Interpretation (test cod e = 02704-5) [facility] (NA, K, CL, CO2, GLUCOSE, BUN, CREATININE, CA)2020-12-04 20:48:20* Test Item Value Reference Range Interpretation Comme nts NA (test code = 8273441322) 138 mmol/L 135-145 K (test code = 2589730942) 3.8 mmol/L 3.5-5.0 CL (test code = 7468487741) 108 mmol/L 98-108 CO2 TOTAL (test code = 3106872037) 21 mmol/L 23-31 L AGAP (test code = 5018702947) 2-16 BUN (test code = 8268882666) 13 mg/dL 7-23 GLUCOSE (test code = 8395011383) 107 mg/dL 70-110 CREATININE (test code = 1186966972) 0.66 mg/dL 0.50-1.04 CALCIUM (test code = 3035515635) 9.3 mg/dL 8.6-10.6 eGFR (test code = 1867063676) mL/min/1.73m2 DARWIN (test code = DARWIN) Association [...] imaging tests). Lab Interpretation (test code = 46450-0) [facility] (ALB, T.PRO, BILI T, BU/BC, ALT, AST, ALK PHOS)2020-12-04 20:48:20* Test Item Value Reference Range Interpretation Comme nts TOTAL BILI (test code = 9272081447) 0.3 mg/dL 0.1-1.1 BILI UNCON (test code = 1006226598) 0.1 mg/dL 0.1-1.1 BILI CONJ (test code = 9362151118) 0.0 mg/dL 0.0-0.3 T PROTEIN (test code = 1611938340) 7.0 g/dL 6.3-8.2 ALBUMIN (test code = 6955369052) 4.0 g/dL 3.5-5.0 ALK PHOS (test code = 2952172225) 114 U/L 34-122 ALTv (test code = 1742-6) 30 U/L 5-35 AST(SGOT) (test code = 6040066464) 23 U/L 13-40 Lab Interpretation (test cod e = 87667-7) [facility] with Iqewsginqtlm5679-38-24 20:35:01* Test Item Value Reference Range Interpretation Comme nts WBC (test code = 6690-2) See_Comment [Automated fflap] The system which generated this result transmitted reference range: 4.30 - 11.10 10*3/?L. The reference range was not used to interpret this result as normal/abnormal. RBC (test code = 789-8) See_Comment [Automated [employer]] The system which generated this result transmitted [...] 34.0 g/dL 31.6-35.1 RDW-SD (test code = 84235-9) 39.8 fL 39.0-49.9 RDW-CV (test code = 788-0) 12.9 % 12.0-15.5 PLT (test code = 777-3) See_Comment [Automated DataArta ge] The system which generated this result transmitted reference range: 166 - 358 10*3/?L. The reference range was not used to interpret this result as normal/abnormal. MPV (test code = 48017-1) 9.3 fL 9.5-12.9 L NRBC/100 WBC (test code = 6181711744) See_Comment [Automated [employer] ssage] The system which generated this result transmitted reference range: 0.0 - 10.0 /100 WBCs. The reference range was not used to interpret this result as normal/abnormal. NRBC x10^3 (test code = 9320135355) <0.01 See_Comment [Automated DataArta ge] The system which generated this result transmitted reference range: 10*3/?L. The reference range was not used to interpret this result as normal/abnormal. GRAN MAT (NEUT) % (test code = 770-8) 71.5 % IMM GRAN % (test code = 0276407625) 0.30 % LYMPH % (test code = 736-9) 19.8 % MONO % (test code = 5905-5) 6.2 % EOS % (test code = 713-8) 1.8 % BASO % (test code = 706-2) 0.4 % GRAN MAT x10^3(ANC) (test code = 7238948176) 6.79 10*3/uL 1.88-7.09 IMM GRAN x10^3 (test code = 2281163679) 0.03 10*3/uL 0.00-0.06 LYMPH x10^3 (test code = 731-0) 1.88 10*3/uL 1.32-3.29 MONO x10^3 (test code = 742-7) 0.59 10*3/uL 0.33-0.92 EOS x10^3 (test code = 711-2) 0.17 10*3/uL 0.03-0.39 BASO x10^3 (test code = 704-7) 0.04 10*3/uL 0.01-0.07 Lab Interpretation (test code = 25615-4) [facility] ([facility]INE)2020-11-04 02:54:38* Test Item Value Reference Range Interpretation Comme nts AMPHET (test code = 8584853686) Negative Negative Cocaine Metabolite (test code = 1596818384) Negative Negative OPIATES (test code = 3937026699) Presumptive Positive Negative A THC (test code = 9032113830) Negative Negative DARWIN (test code = DARWIN) Urine Drug Cutoff Ranges Amphetamine: ? 1,000 ng/mLCocaine: ? 150 ng/mLOpiates: ? 300 ng/mLCannabinoids: ?50 ng/mL The results are to be used only for medical (i.e., treatment) purposes. Unconfirmed screening results must not be used for non-medical purposes (e.g., employment testing, legal testing). Lab Interpretation (test code = 88498-8) [facility] HeightsTR[facility]IN [id number] 02:51:11* Test Item Value Reference Range Interpretation Comme nts TROPONIN I (test code = 7323222183) 0.001 ng/mL See_Comment [Automated message] The system [...] biotin. ? Lab Interpretation (test code = 18217-6) [facility] HeightsaPTT2021-04-30 02:41:10* Test Item Value Reference Range Interpretation Comme nts APTT Patient (test code = 3173-2) See_Comment [Automated message] The system which generated this result transmitted reference range: 23 - 38 Seconds. The reference range was not used to interpret this result as normal/abnormal. DARWIN (test code = DARWIN) The [facility] patient population mean normal value for aPTT is 30 seconds. Lab Interpretation (test code = 08282-0) Normal [facility]URINALYSIS2021-04-30 02:40:40* Test Item Value Reference Range Interpretation Comme nts APPEARANCE (test code = 5129982946) Clear Clear COLOR (test code = 0810280654) Yellow Yellow PH (test code = 7921636866) 4.8-8.0 SP GRAVITY (test code = 6731120623) 1.003-1.030 GLU U QUAL (test code = 9139440780) Normal Normal BLOOD (test code = 3468635276) Negative Negative KETONES (test code = 3053677816) Negative Negative PROTEIN (test code = 2887-8) Negative Negative UROBILIN (test code = 3525175653) Normal Normal BILIRUBIN (test code = 9351121150) Negative Negative NITRITE (test code = 0962632273) Negative Negative LEUK MARC (test code = 4784892424) Negative Negative RBC/HPF (test code = 7293426182) <1 See_Comment [Automated messa ge] The system which generated this result transmitted reference range: 0 - 3 HPF. The reference range was not used to interpret this result as normal/abnormal. WBC/HPF (test code = 2748120965) <1 See_Comment [Automated messa ge] The system which generated this result transmitted reference range: 0 - 5 HPF. The reference range was not used to interpret this result as normal/abnormal. BACTERIA (test code = 6424703328) Negative Negative MUCOUS (test code = 2572977627) Slight Negative LPF A SQ EPITH (test code = 5574181875) HPF Lab Interpretation (test code = 80983-2) Abnormal [facility]. METABOLIC PANEL (71945)2020-11-04 02:40:09* Test Item Value Reference Range Interpretation Comme nts NA (test code = 6439823954) 141 mmol/L 135-145 K (test code = 7779972102) 4.1 mmol/L 3.5-5.0 CL (test code = 6716404773) 110 mmol/L 98-108 H CO2 TOTAL (test code = 3386445278) 22 mmol/L 23-31 L AGAP (test code = 7791538724) 2-16 BUN (test code = 2515809779) 15 mg/dL 7-23 GLUCOSE (test code = 2005308309) 115 mg/dL 70-110 H CREATININE (test code = 2218369793) 0.69 mg/dL 0.50-1.04 TOTAL BILI (test code = 5250930695) 0.2 mg/dL 0.1-1.1 CALCIUM (test code = 1133949817) 9.2 mg/dL 8.6-10.6 T PROTEIN (test code = 1345683240) 6.8 g/dL 6.3-8.2 ALBUMIN (test code = 7026671151) 4.1 g/dL 3.5-5.0 ALK PHOS (test code = 6101219448) 69 U/L 34-122 ALTv (test code = 1742-6) 20 U/L 5-35 AST(SGOT) (test code = 8177141266) 23 U/L 13-40 eGFR (test code = 9478516902) mL/min/1.73m2 DARWIN (test code = DARWIN) Association [...] imaging tests). Lab Interpretation (test code = 84040-1) [facility] HeightsLIP[facility], [id number] 02:39:49* Test Item Value Reference Range Interpretation Comme [facility] LIPASE (test code = 1202175282) 117 U/L 0-220 Lab Interpretation (test cod e = 21902-1) Normal [facility] HeightsPROTHROMBIN TIME / [id number] 02:39:08* Test Item Value Reference Range Interpretation Comme [facility] PROTIME PATIENT (test code = 5964-2) See_Comment [Automated fflap] The system which generated this result transmitted reference range: 12.0 - 14.7 Seconds. The reference range was not used to interpret this result as normal/abnormal. INR (test code = 6301-6) Normal INR <1.1; Warfarin Therapeutic range 2.0 to 3.0 or 2.5 to 3.5, depending upon the indications. Lab Interpretation (test code = 19061-7) Normal [facility] WITH [id number] 02:30:11* Test Item Value Reference Range Interpretation [...] 32.8 g/dL 31.6-35.1 RDW-SD (test code = 79160-8) 44.1 fL 39.0-49.9 RDW-CV (test code = 788-0) 13.8 % 12.0-15.5 PLT (test code = 777-3) See_Comment [Automated messa ge] The system which generated this result transmitted reference range: 166 - 358 10*3/?L. The reference range was not used to interpret this result as normal/abnormal. MPV (test code = 53111-0) 9.6 fL 9.5-12.9 NRBC/100 WBC (test code = 2003018604) See_Comment [Automated [employer] ssage] The system which generated this result transmitted reference range: 0.0 - 10.0 /100 WBCs. The reference range was not used to interpret this result as normal/abnormal. NRBC x10^3 (test code = 2156959134) <0.01 See_Comment [Automated messa ge] The system which generated this result transmitted reference range: 10*3/?L. The reference range was not used to interpret this result as normal/abnormal. GRAN MAT (NEUT) % (test code = 770-8) 65.9 % IMM GRAN % (test code = 5611683295) 0.70 % LYMPH % (test code = 736-9) 25.9 % MONO % (test code = 5905-5) 5.1 % EOS % (test code = 713-8) 2.0 % BASO % (test code = 706-2) 0.4 % GRAN MAT x10^3(ANC) (test code = 0715303335) 8.82 10*3/uL 1.88-7.09 H IMM GRAN x10^3 (test code = 3175193421) 0.09 10*3/uL 0.00-0.06 H LYMPH x10^3 (test code = 731-0) 3.46 10*3/uL 1.32-3.29 H MONO x10^3 (test code = 742-7) 0.68 10*3/uL 0.33-0.92 EOS x10^3 (test code = 711-2) 0.27 10*3/uL 0.03-0.39 BASO x10^3 (test code = 704-7) 0.05 10*3/uL 0.01-0.07 Lab Interpretation (test code = 55314-3) [facility] (ID NOW RAPID TESTING)2020-09-17 16:56:05* Test Item Value Reference Range Interpretation Comme nts SARS-CoV-2 Rapid ID NOW (test code = 03398-7) Not Detected Not Detected DARWIN (test code = DARWIN) ID NOW COVID-19 As say is an isothermal nucleic acid amplification test intended for the qualitative detection of nucleic acid from SARS-CoV-2 viral RNA in nasopharyngeal ([employer]) specimens. It is used under Emergency Use [...] clinically indicated. Lab Interpretation (test code = 74085-4) [facility] HeightsRAPID STREP SCREEN FOR GROUP [id number] 16:54:09* Test Item Value Reference Range Interpretation Comme nts Streptococcus pyogenes (grou p A) antigen (test code = 38922-6) Negative Negative Lab Interpretation (test cod e = 37012-8) [facility] 3+ VW [id number] 07:29:48 Impression: No acute fracture or dislocation. RL: 2824AFC: 56186 End of Report Exam: Left Hand, 09/07/2020 [...] swelling.IMPRESSIONImpression: No acute fracture or dislocation.RL: 2824AFC: 63721Prk of Report [facility] FOR[facility] 2 VW [id number] 07:28:55No acute abnormality of the left forearm. RL: 6200AFC: 80067 Patient name: CHARITY MONROYOB: 1980 40 years [...] acute abnormality of the left forearm.RL: 6200AFC: 69568 [facility] 09:06:00* Test Item Value Reference Range Interpretation Comme nts APPEARANCE (test code = 2542388117) Hazy Clear A COLOR (test code = 3178578701) Yellow Yellow PH (test code = 4957294078) 4.8-8.0 SP GRAVITY (test code = 9161598624) 1.003-1.030 GLU U QUAL (test code = 4686072946) Normal Normal BLOOD (test code = 5582676238) Negative Negative KETONES (test code = 1903690871) Negative Negative PROTEIN (test code = 2887-8) Negative Negative UROBILIN (test code = 8043858918) Normal Normal BILIRUBIN (test code = 6322630076) Negative Negative NITRITE (test code = 9418651231) Negative Negative LEUK MARC (test code = 5941325898) Negative Negative RBC/HPF (test code = 9359133229) See_Comment [Automated [employer]] The system which generated this result transmitted reference range: 0 - 3 HPF. The reference range was not used to interpret this result as normal/abnormal. WBC/HPF (test code = 2162809826) <1 See_Comment [Automated DataArta ge] The system which generated this result transmitted reference range: 0 - 5 HPF. The reference range was not used to interpret this result as normal/abnormal. BACTERIA (test code = 3121151762) Moderate Negative A SQ EPITH (test code = 6069775688) HPF Lab Interpretation (test code = 00085-0) Abnormal [facility] with Bvjjzynjqcpp2234-08-46 08:50:00* Test Item Value Reference Range Interpretation [...] 34.0 g/dL 31.6-35.1 RDW-SD (test code = 46312-6) 42.6 fL 39-49.9 RDW-CV (test code = 788-0) 13.6 % 12-15.5 PLT (test code = 777-3) See_Comment H [Automated messa ge] The system which generated this result transmitted reference range: 166 - 358 10*3/?L. The reference range was not used to interpret this result as normal/abnormal. MPV (test code = 24224-0) 9.7 fL 9.5-12.9 NRBC/100 WBC (test code = 6057247536) See_Comment [Automated me ssage] The system which generated this result transmitted reference range: 0.0 - 10.0 /100 WBCs. The reference range was not used to interpret this result as normal/abnormal. NRBC x10^3 (test code = 1231756247) <0.01 See_Comment [Automated messa ge] The system which generated this result transmitted reference range: 10*3/?L. The reference range was not used to interpret this result as normal/abnormal. GRAN MAT (NEUT) % (test code = 770-8) 49.7 % IMM GRAN % (test code = 5740870427) 0.50 % LYMPH % (test code = 736-9) 41.0 % MONO % (test code = 5905-5) 6.5 % EOS % (test code = 713-8) 1.9 % BASO % (test code = 706-2) 0.4 % GRAN MAT x10^3(ANC) (test code = 9639542147) 6.39 10*3/uL 1.88-7.09 IMM GRAN x10^3 (test code = 5202813011) 0.07 10*3/uL 0-0.06 H LYMPH x10^3 (test code = 731-0) 5.27 10*3/uL 1.32-3.29 H MONO x10^3 (test code = 742-7) 0.84 10*3/uL 0.33-0.92 EOS x10^3 (test code = 711-2) 0.24 10*3/uL 0.03-0.39 BASO x10^3 (test code = 704-7) 0.05 10*3/uL 0.01-0.07 Lab Interpretation (test code = 33346-9) [facility]PO[facility] Hbjv2927-01-59 08:45:00* Test Item Value Reference Range Interpretation Comme nts POCT PREG (test code = 1605) neg On board controls acceptable with C Line (test code = 3574) yes POCT PREG LOT # (test code = 3575) [id number] POCT PREG TEST DATE ( test code = 3576) 04/06/2022 Lab Interpretation (test cod e = 52773-0) [facility] Metabolic Owvgd3030-25-62 08:30:00* Test Item Value Reference Range Interpretation Comme nts NA (test code = 6475194582) 137 mmol/L 135-145 K (test code = 8180623101) 3.3 mmol/L 3.5-5 L CL (test code = 9830289565) 102 mmol/L 98-108 CO2 TOTAL (test code = 6361061559) 24 mmol/L 23-31 AGAP (test code = 0506709645) 2-16 BUN (test code = 3545712067) 9 mg/dL 7-23 GLUCOSE (test code = 3857777113) 116 mg/dL 70-110 H CREATININE (test code = 9122166465) 0.48 mg/dL 0.5-1.04 L TOTAL BILI (test code = 2308112840) 0.3 mg/dL 0.1-1.1 CALCIUM (test code = 7590507656) 9.4 mg/dL 8.6-10.6 T PROTEIN (test code = 0284446531) 7.0 g/dL 6.3-8.2 ALBUMIN (test code = 4185886798) 4.3 g/dL 3.5-5 ALK PHOS (test code = 6862067339) 127 U/L 34-122 H ALTv (test code = 1742-6) 87 U/L 5-35 H AST(SGOT) (test code = 6977270378) 34 U/L 13-40 eGFR Calculation (Non-) (test code = 2867894596) mL/min/1.73m2 eGFR Calculation () (test code = 8438829240) mL/min/1.73m2 DARWIN (test code = DARWIN) Association [...] imaging tests). Lab Interpretation (test code = 90106-4) [facility] HeightsLipase, Crvmd2656-62-94 08:30:00* Test Item Value Reference Range Interpretation Comme nts LIPASE (test code = 7302524425) 297 U/L 0-220 H Lab Interpretation (test cod e = 56915-4) [facility] HeightsURINALYSIS2021-02-07 19:25:00* Test Item Value Reference Range Interpretation Comme nts APPEARANCE (test code = 6832221498) Clear Clear COLOR (test code = 4670398423) Straw Yellow A PH (test code = 5081156480) 4.8-8.0 SP GRAVITY (test code = 0696788095) 1.003-1.030 GLU U QUAL (test code = 2833965378) Normal Normal BLOOD (test code = 4436074665) 1+ Negative A KETONES (test code = 0915012397) Negative Negative PROTEIN (test code = 2887-8) Negative Negative UROBILIN (test code = 5009813862) Normal Normal BILIRUBIN (test code = 8447445043) Negative Negative NITRITE (test code = 2349596216) Negative Negative LEUK MARC (test code = 1764932558) Negative Negative RBC/HPF (test code = 0688940268) See_Comment [Automated DataArta ge] The system which generated this result transmitted reference range: 0 - 3 HPF. The reference range was not used to interpret this result as normal/abnormal. WBC/HPF (test code = 9754657087) <1 See_Comment [Automated DataArta ge] The system which generated this result transmitted reference range: 0 - 5 HPF. The reference range was not used to interpret this result as normal/abnormal. BACTERIA (test code = 1710363956) Few Negative A MUCOUS (test code = 4336465047) Slight Negative LPF A SQ EPITH (test code = 2846549201) HPF Lab Interpretation (test code = 49530-9) [facility] HeightsTROP[facility] Z8741-52-67 19:09:00* Test Item Value Reference Range Interpretation Comme nts TROPONIN I (test code = 0211742400) <0.012 See_Comment [Automated message] The system which [...] biotin. ? Lab Interpretation (test code = 07881-3) Normal [facility] / [facility] - DRUG SCREEN GKWGZQ5313-68-59 19:09:00* Test Item Value Reference Range Interpretation Comme nts BENZO U (test code = 8165872299) Presumptive Positive Negative A ROSA U (test code = 2782010006) Negative Negative AMPHET (test code = 0849491501) Negative Negative THC (test code = 1171700112) Negative Negative METHADONE (test code = 5798095842) Negative Negative Meth U (test code = 4148273154) Negative Negative OPIATES (test code = 7462487035) Negative Negative Cocaine Metabolite (test code = 3139611372) Negative Negative PROPOXY (test code = 6882073689) Negative Negative Tric U (test code = 9661374760) Negative Negative PCP (test code = 4196495379) Negative Negative OXYCOD (test code = 9240939810) Negative Negative DARWIN (test code = DARWIN) [...] legal testing). Lab Interpretation (test code = 62092-6) [facility] HeightsCOMP. METABOLIC PANEL (09170)2020-08-14 19:01:00* Test Item Value Reference Range Interpretation Comme nts NA (test code = 1303037109) 138 mmol/L 135-145 K (test code = 1135844489) 4.5 mmol/L 3.5-5 CL (test code = 6773951019) 106 mmol/L 98-108 CO2 TOTAL (test code = 7502037606) 21 mmol/L 23-31 L AGAP (test code = 2534804829) 2-16 BUN (test code = 8388754587) 13 mg/dL 7-23 GLUCOSE (test code = 3587089408) 97 mg/dL 70-110 CREATININE (test code = 2816929561) 0.48 mg/dL 0.5-1.04 L TOTAL BILI (test code = 9354360473) 0.4 mg/dL 0.1-1.1 CALCIUM (test code = 4965129617) 9.1 mg/dL 8.6-10.6 T PROTEIN (test code = 2372462252) 7.5 g/dL 6.3-8.2 ALBUMIN (test code = 1424408684) 4.3 g/dL 3.5-5 ALK PHOS (test code = 3833358723) 62 U/L 34-122 ALTv (test code = 1742-6) 19 U/L 5-35 AST(SGOT) (test code = 5552308076) 26 U/L 13-40 eGFR Calculation (Non-) (test code = 0958346824) mL/min/1.73m2 eGFR Calculation () (test code = 5378816212) mL/min/1.73m2 DARWIN (test code = DARWIN) Association [...] imaging tests). Lab Interpretation (test code = 24425-2) [facility]ASE2021-[facility]-07 19:01:00* Test Item Value Reference Range Interpretation Comme nts LIPASE (test code = 1136693728) 76 U/L 0-220 Lab Interpretation (test cod e = 60798-4) Normal [facility] WITH [id number] 18:47:00* Test Item Value Reference Range Interpretation [...] 34.3 g/dL 31.6-35.1 RDW-SD (test code = 44153-2) 42.0 fL 39-49.9 RDW-CV (test code = 788-0) 13.4 % 12-15.5 PLT (test code = 777-3) See_Comment [Automated messa ge] The system which generated this result transmitted reference range: 166 - 358 10*3/?L. The reference range was not used to interpret this result as normal/abnormal. MPV (test code = 78277-9) 9.9 fL 9.5-12.9 NRBC/100 WBC (test code = 1718211995) See_Comment [Automated me ssage] The system which generated this result transmitted reference range: 0.0 - 10.0 /100 WBCs. The reference range was not used to interpret this result as normal/abnormal. NRBC x10^3 (test code = 4134041445) <0.01 See_Comment [Automated messa ge] The system which generated this result transmitted reference range: 10*3/?L. The reference range was not used to interpret this result as normal/abnormal. GRAN MAT (NEUT) % (test code = 770-8) 60.1 % IMM GRAN % (test code = 3567570297) 0.40 % LYMPH % (test code = 736-9) 31.3 % MONO % (test code = 5905-5) 6.0 % EOS % (test code = 713-8) 1.9 % BASO % (test code = 706-2) 0.3 % GRAN MAT x10^3(ANC) (test code = 0245193828) 6.96 10*3/uL 1.88-7.09 IMM GRAN x10^3 (test code = 1115936455) 0.05 10*3/uL 0-0.06 LYMPH x10^3 (test code = 731-0) 3.62 10*3/uL 1.32-3.29 H MONO x10^3 (test code = 742-7) 0.69 10*3/uL 0.33-0.92 EOS x10^3 (test code = 711-2) 0.22 10*3/uL 0.03-0.39 BASO x10^3 (test code = 704-7) 0.04 10*3/uL 0.01-0.07 Lab Interpretation (test code = 74132-7) [facility] CHEST 1 [id number] 18:17:08No acute cardiopulmonary abnormality. Preliminary Report Dictated [...] reviewed this study and agree with theabove report.[facility] HeightsLactic Acid Whole Csdsu4483-19-02 18:11:00* Test Item Value Reference Range Interpretation Comme nts LACTIC ACID (test code = 5431615134) 1.95 mmol/L 0.5-2.2 Lab Interpretation (test cod e = 50798-1) [facility]BD[facility] PELVIS WO CQYCVYFC2998-03-21 05:45:24No acute abdominopelvic abnormality. No urolithiasis. 2.5 [...] reviewed this study and agree with the abovereport.[facility]PO[facility] JNSN0302-50-95 03:10:00* Test Item Value Reference Range Interpretation Comme nts POCT PREG (test code = 1605) Negative On board controls acceptable with C Line (test code = 3574) Present POCT PREG LOT # (test code = 3575) [id number] POCT PREG TEST DATE ( test code = 3576) 03/07/2022 Lab Interpretation (test cod e = 56907-2) Normal [facility] with Fxdbmhgrbujs2927-11-79 03:05:00* Test Item Value Reference Range Interpretation [...] 34.7 g/dL 31.6-35.1 RDW-SD (test code = 55724-9) 42.0 fL 39-49.9 RDW-CV (test code = 788-0) 13.5 % 12-15.5 PLT (test code = 777-3) See_Comment [Automated message] The system which generated this result transmitted reference range: 166 - 358 10*3/?L. The reference range was not used to interpret this result as normal/abnormal. MPV (test code = 95644-8) 9.8 fL 9.5-12.9 NRBC/100 WBC (test code = 9034791728) See_Comment [Automated message] The system which generated this result transmitted reference range: 0.0 - 10.0 /100 WBCs. The reference range was not used to interpret this result as normal/abnormal. NRBC x10^3 (test code = 6465085405) <0.01 See_Comment [Automated message] The system which generated this result transmitted reference range: 10*3/?L. The reference range was not used to interpret this result as normal/abnormal. GRAN MAT (NEUT) % (test code = 770-8) 66.2 % IMM GRAN % (test code = 7545595150) 0.60 % LYMPH % (test code = 736-9) 25.4 % MONO % (test code = 5905-5) 5.6 % EOS % (test code = 713-8) 1.9 % BASO % (test code = 706-2) 0.3 % GRAN MAT x10^3(ANC) (test code = [id number]) 10.64 10*3/uL 1.88-7.09 H IMM GRAN x10^3 (test code = [id number]) 0.09 10*3/uL 0-0.06 H LYMPH x10^3 (test code = 731-0) 4.09 10*3/uL 1.32-3.29 H MONO x10^3 (test code = 742-7) 0.90 10*3/uL 0.33-0.92 EOS x10^3 (test code = 711-2) 0.31 10*3/uL 0.03-0.39 BASO x10^3 (test code = 704-7) 0.05 10*3/uL 0.01-0.07 Lab Interpretation (test code = 13600-0) [facility] 02:56:00* Test Item Value Reference Range Interpretation Comme nts APPEARANCE (test code = 6928947113) Hazy Clear A COLOR (test code = 9274688153) Yellow Yellow PH (test code = 1599914912) 4.8-8.0 SP GRAVITY (test code = 6255104104) 1.003-1.030 GLU U QUAL (test code = 9536696232) Normal Normal BLOOD (test code = 6870897133) Negative Negative KETONES (test code = 0997254814) Negative Negative PROTEIN (test code = 2887-8) Negative Negative UROBILIN (test code = 8547394468) Normal Normal BILIRUBIN (test code = 9278042200) Negative Negative NITRITE (test code = 3799169407) Negative Negative LEUK MARC (test code = 9963364447) Negative Negative RBC/HPF (test code = 8428844460) See_Comment [Automated DataArta ge] The system which generated this result transmitted reference range: 0 - 3 HPF. The reference range was not used to interpret this result as normal/abnormal. WBC/HPF (test code = 7435862910) See_Comment [Automated DataArta ge] The system which generated this result transmitted reference range: 0 - 5 HPF. The reference range was not used to interpret this result as normal/abnormal. BACTERIA (test code = 0748975715) Few Negative A MUCOUS (test code = 3758359338) Slight Negative LPF A SQ EPITH (test code = 4014882941) HPF YEAST BUD (test code = 6881092744) See_Comment H [Automated DataArta ge] The system which generated this result transmitted reference range: <=1 HPF. The reference range was not used to interpret this result as normal/abnormal. Lab Interpretation (test code = 34218-0) Abnormal [facility] [id number] 02:24:00* Test Item Value Reference Range Interpretation Comme nts TROPONIN I (test code = 1713465830) <0.012 See_Comment [Automated message] The system which [...] biotin. ? Lab Interpretation (test code = 90223-5) [facility] RAPID TESTING)2020-08-11 02:15:00* Test Item Value Reference Range Interpretation Comme nts SARS-CoV-2 Rapid ID NOW (test code = 71471-8) Not Detected Not Detected DARWIN (test code = DARWIN) ID NOW COVID-19 As say is an isothermal nucleic acid amplification test intended for the qualitative detection of nucleic acid from SARS-CoV-2 viral RNA in nasopharyngeal (AUTOMOBILE LEASING SUPERVISOR) specimens. It is used under Emergency Use [...] clinically indicated. Lab Interpretation (test code = 06251-7) [facility] (NA, K, CL, CO2, GLUCOSE, BUN, CREATININE, CA)2020-08-11 02:13:00* Test Item Value Reference Range Interpretation Comme nts NA (test code = 1746579154) 137 mmol/L 135-145 K (test code = 2929913886) 4.0 mmol/L 3.5-5 CL (test code = 9899495314) 107 mmol/L 98-108 CO2 TOTAL (test code = 4751200455) 19 mmol/L 23-31 L AGAP (test code = 6762491180) 2-16 BUN (test code = 7382872195) 10 mg/dL 7-23 GLUCOSE (test code = 4018394216) 106 mg/dL 70-110 CREATININE (test code = 4209726112) 0.47 mg/dL 0.5-1.04 L CALCIUM (test code = 7051611996) 9.2 mg/dL 8.6-10.6 eGFR Calculation (Non-) (test code = 1857517720) mL/min/1.73m2 eGFR Calculation () (test code = 5178200059) mL/min/1.73m2 DARWIN (test code = DARWIN) Association [...] imaging tests). Lab Interpretation (test code = 55529-7) [facility] (ALB, T.PRO, BILI T, BU/BC, ALT, AST, ALK PHOS)2020-08-11 02:13:00* Test Item Value Reference Range Interpretation Comme nts TOTAL BILI (test code = 2449420162) 0.4 mg/dL 0.1-1.1 BILI UNCON (test code = 5970371400) 0.3 mg/dL 0.1-1.1 BILI CONJ (test code = 3207823728) 0.0 mg/dL 0-0.3 T PROTEIN (test code = 0874499945) 7.5 g/dL 6.3-8.2 ALBUMIN (test code = 4707178587) 4.4 g/dL 3.5-5 ALK PHOS (test code = 8963912697) 48 U/L 34-122 ALTv (test code = 1742-6) 12 U/L 5-35 AST(SGOT) (test code = 3338167589) 22 U/L 13-40 Lab Interpretation (test cod e = 95562-6) [facility] HeightsLip[facility] Ekhha6363-83-59 02:13:00* Test Item Value Reference Range Interpretation Comme nts LIPASE (test code = 2365390019) 78 U/L 0-220 Lab Interpretation (test cod e = 97637-2) Normal [facility] HeightsLactic Acid Whole Qeilj1140-78-26 02:05:00* Test Item Value Reference Range Interpretation Comme nts LACTIC ACID (test code = 4643231912) 1.47 mmol/L 0.5-2.2 Lab Interpretation (test cod e = 05899-1) [facility] HeightsXR FOREARM 2 VW [id number] 14:31:40No acute bony abnormality. Soft tissue swelling. Osteoarthrosis of the elbow. Preliminary Report Dictated by Resident: Anita Jackman I, Mickey Shah MD., have reviewed this study and agree [...] reviewed this study and agree with the abovereport.[facility] ([facility] NOW RAPID TESTING)2020-08-07 14:18:00* Test Item Value Reference Range Interpretation Comme nts SARS-CoV-2 Rapid ID NOW (test code = 43535-0) Not Detected Not Detected DARWIN (test code = DARWIN) ID NOW COVID-19 As say is an isothermal nucleic acid amplification test intended for the qualitative detection of nucleic acid from SARS-CoV-2 viral RNA in nasopharyngeal (AUTOMOBILE LEASING SUPERVISOR) specimens. It is used under Emergency Use [...] clinically indicated. Lab Interpretation (test code = 18810-8) Normal [facility] [id number] 02:54:00* Test Item Value Reference Range Interpretation Comme nts TROPONIN I (test code = 1045837147) <0.012 See_Comment [Automated message] The system which [...] biotin. ? Lab Interpretation (test code = 47577-4) [facility]2020-12-25 02:37:00* Test Item Value Reference Range Interpretation Comme nts LIPASE (test code = 7549252306) 76 U/L 0-220 Lab Interpretation (test cod e = 33976-2) [facility]IN[facility]IS2020-12-25 01:54:00* Test Item Value Reference Range Interpretation Comme nts APPEARANCE (test code = 5655384955) Clear Clear COLOR (test code = 1313303734) Straw Yellow A PH (test code = 2293828388) 4.8-8.0 SP GRAVITY (test code = 1266760738) 1.003-1.030 GLU U QUAL (test code = 7622285929) Normal Normal BLOOD (test code = 3063770565) 3+ Negative A KETONES (test code = 4135955464) Negative Negative PROTEIN (test code = 2887-8) Negative Negative UROBILIN (test code = 2761586692) Normal Normal BILIRUBIN (test code = 4536821651) Negative Negative NITRITE (test code = 4270717344) Negative Negative LEUK MARC (test code = 8107536625) Negative Negative RBC/HPF (test code = 7877682803) See_Comment [Automated fflap] The system which generated this result transmitted reference range: 0 - 3 HPF. The reference range was not used to interpret this result as normal/abnormal. WBC/HPF (test code = 7365830667) <1 See_Comment [Automated messa ge] The system which generated this result transmitted reference range: 0 - 5 HPF. The reference range was not used to interpret this result as normal/abnormal. BACTERIA (test code = 1908733306) Few Negative A MUCOUS (test code = 5491769106) Slight Negative LPF A SQ EPITH (test code = 6374167440) HPF Lab Interpretation (test code = 20239-5) Abnormal [facility] WITH [id number] 00:57:00* Test Item Value Reference Range Interpretation [...] 34.0 g/dL 31.6-35.1 RDW-SD (test code = 31373-1) 41.7 fL 39-49.9 RDW-CV (test code = 788-0) 13.2 % 12-15.5 PLT (test code = 777-3) See_Comment [Automated messa ge] The system which generated this result transmitted reference range: 166 - 358 10*3/?L. The reference range was not used to interpret this result as normal/abnormal. MPV (test code = 99598-6) 9.4 fL 9.5-12.9 L NRBC/100 WBC (test code = 1312581176) See_Comment [Automated [employer] ssage] The system which generated this result transmitted reference range: 0.0 - 10.0 /100 WBCs. The reference range was not used to interpret this result as normal/abnormal. NRBC x10^3 (test code = 9650150937) <0.01 See_Comment [Automated messa ge] The system which generated this result transmitted reference range: 10*3/?L. The reference range was not used to interpret this result as normal/abnormal. GRAN MAT (NEUT) % (test code = 770-8) 51.8 % IMM GRAN % (test code = 2865755993) 0.50 % LYMPH % (test code = 736-9) 40.7 % MONO % (test code = 5905-5) 4.0 % EOS % (test code = 713-8) 2.5 % BASO % (test code = 706-2) 0.5 % GRAN MAT x10^3(ANC) (test code = 2102012904) 5.38 10*3/uL 1.88-7.09 IMM GRAN x10^3 (test code = 0029681415) 0.05 10*3/uL 0-0.06 LYMPH x10^3 (test code = 731-0) 4.22 10*3/uL 1.32-3.29 H MONO x10^3 (test code = 742-7) 0.42 10*3/uL 0.33-0.92 EOS x10^3 (test code = 711-2) 0.26 10*3/uL 0.03-0.39 BASO x10^3 (test code = 704-7) 0.05 10*3/uL 0.01-0.07 Lab Interpretation (test code = 56875-6) [facility]normal [facility]ADC,CLC OR LCC ONLY - INFLUENZA A & B DIRECT CLWIBOS0255-03-09 00:51:00* Test Item Value Reference Range Interpretation Comme nts Influenza A (test code = 97157-9) Negative Negative Influenza B (test code = 59071-4) Negative Negative Lab Interpretation (test cod e = 10131-9) Normal [facility] HeightsPORI [id number] 00:51:00* Test Item Value Reference Range Interpretation Comme nts POCT PREG (test code = 1605) negative On board controls acceptable with C Line (test code = 3574) present POCT PREG LOT # (test code = 3575) [id number] POCT PREG TEST DATE ( test code = 3576) 11/04/2021 Lab Interpretation (test cod e = 35079-3) [facility] HeightsTRMARYN [id number] 00:46:00* Test Item Value Reference Range Interpretation Comme nts TROPONIN I (test code = 6218949420) <0.012 See_Comment [Automated message] The system which [...] biotin. ? Lab Interpretation (test code = 99671-2) [facility] METABOLIC PANEL (NA, K, CL, CO2, GLUCOSE, BUN, CREATININE, CA)2020-07-01 00:46:00* Test Item Value Reference Range Interpretation Comme nts NA (test code = 0560632971) 141 mmol/L 135-145 K (test code = 3534689876) 3.8 mmol/L 3.5-5 CL (test code = 1931318067) 108 mmol/L 98-108 CO2 TOTAL (test code = 9240723076) 25 mmol/L 23-31 AGAP (test code = 7631531986) 2-16 BUN (test code = 5945133670) 10 mg/dL 7-23 GLUCOSE (test code = 5694166807) 92 mg/dL 70-110 CREATININE (test code = 8064436807) 0.58 mg/dL 0.5-1.04 CALCIUM (test code = 0579559692) 9.4 mg/dL 8.6-10.6 eGFR Calculation (Non-) (test code = 6288316191) mL/min/1.73m2 eGFR Calculation () (test code = 7866598308) mL/min/1.73m2 DARWIN (test code = DARWIN) Association [...] or urine or abnormalities in imaging tests). [facility]N-[facility]MINAL ISU-TPV3473-88-25 00:43:00* Test Item Value Reference Range Interpretation Comme nts NT-proBNP (test code = 7663738041) 332 pg/mL See_Comment H [Automated message] The system which generated this result transmitted reference range: <=125. The reference range was not used to interpret this result as normal/abnormal. DARWIN (test code = DARWIN) Biotin has been reported to cause a negative bias, interpret results relative to patient's use of biotin. Lab Interpretation (test code = 98791-7) [facility] CHEST 1 [id number] 00:20:50No acute cardiopulmonary abnormality Preliminary Report Dictated [...] reviewed this study and agree with the abovereport.[facility]CT CERVICAL SPINE WO WVTMSJUL9213-50-10 23:23:[address] EXAMINATION: CT [...] lung apices are unremarkable. IMPRESSIONUnremarkable cervical spine CT.[facility]POCT Zmsz9656-01-22 01:50:00* Test Item Value Reference Range Interpretation Comme nts POCT PREG (test code = 1605) Negative On board controls acceptable with C Line (test code = 3574) Present POCT PREG LOT # (test code = 3575) [id number] POCT PREG TEST DATE ( test code = 3576) 10/05/2021 Lab Interpretation (test cod e = 94850-7) [facility] HeightsTroponin [id number] 01:24:00* Test Item Value Reference Range Interpretation Comme [facility] TROPONIN I (test code = 4088787538) <0.012 See_Comment [Automated message] The system which [...] biotin. ? Lab Interpretation (test code = 40377-5) [facility] (ID NOW RAPID TESTING)2020-06-13 01:22:00* Test Item Value Reference Range Interpretation Comme nts SARS-CoV-2 Rapid ID NOW (test code = 40451-2) Not Detected Not Detected DARWIN (test code = DARWIN) ID NOW COVID-19 As say is an isothermal nucleic acid amplification test intended for the qualitative detection of nucleic acid from SARS-CoV-2 viral RNA in nasopharyngeal (AUTOMOBILE LEASING SUPERVISOR) specimens. It is used under Emergency Use [...] clinically indicated. Lab Interpretation (test code = 04080-9) Normal [facility] HeightsD-FVVUY3113-19-95 01:16:00* Test Item Value Reference Range Interpretation Comments D-DIMER (test code = 4192762852) See_Comment [Automated message] The system which generated [...] a diagnosis. Lab Interpretation (test code = 19714-6) Normal [facility] Metabolic Panel (NA, K, CL, CO2, GLUCOSE, BUN, CREATININE, CA)2020-06-13 01:13:00* Test Item Value Reference Range Interpretation Comme nts NA (test code = 0684239148) 137 mmol/L 135-145 K (test code = 9860517534) 4.2 mmol/L 3.5-5 CL (test code = 6916590690) 103 mmol/L 98-108 CO2 TOTAL (test code = 7195639632) 25 mmol/L 23-31 AGAP (test code = 3253163260) 2-16 BUN (test code = 2084044376) 11 mg/dL 7-23 GLUCOSE (test code = 3125248550) 98 mg/dL 70-110 CREATININE (test code = 0907473736) 0.52 mg/dL 0.5-1.04 CALCIUM (test code = 5956928969) 10.3 mg/dL 8.6-10.6 eGFR Calculation (Non-) (test code = 9283553145) mL/min/1.73m2 eGFR Calculation () (test code = 1124651317) mL/min/1.73m2 DARWIN (test code = DARWIN) Association [...] or urine or abnormalities in imaging tests). [facility] (ALB, T.PRO, BILI T, BU/BC, ALT, AST, ALK PHOS)2020-06-13 01:13:00* Test Item Value Reference Range Interpretation Comme nts TOTAL BILI (test code = 4286522556) 0.5 mg/dL 0.1-1.1 BILI UNCON (test code = 3548965739) 0.3 mg/dL 0.1-1.1 BILI CONJ (test code = 8938124218) 0.0 mg/dL 0-0.3 T PROTEIN (test code = 7070090301) 7.3 g/dL 6.3-8.2 ALBUMIN (test code = 1196585128) 4.2 g/dL 3.5-5 ALK PHOS (test code = 8520607818) 85 U/L 34-122 ALTv (test code = 1742-6) 66 U/L 5-35 H AST(SGOT) (test code = 7754960872) 32 U/L 13-40 Lab Interpretation (test cod e = 65515-0) [facility]normal [facility] HeightsLipase Bakvi8240-54-36 01:13:00* Test Item Value Reference Range Interpretation Comme nts LIPASE (test code = 4416890389) 60 U/L 0-220 Lab Interpretation (test cod e = 39620-2) [facility] HeightsUrinalysis2020-12-07 01:03:00* Test Item Value Reference Range Interpretation Comme nts APPEARANCE (test code = 3664619868) Clear Clear COLOR (test code = 0321867784) Straw Yellow A PH (test code = 3622172550) 4.8-8.0 SP GRAVITY (test code = 2389755530) 1.003-1.030 GLU U QUAL (test code = 0517718654) Normal Normal BLOOD (test code = 2856820001) Negative Negative KETONES (test code = 2323004721) Negative Negative PROTEIN (test code = 2887-8) Negative Negative UROBILIN (test code = 2230866457) Normal Normal BILIRUBIN (test code = 3997545944) Negative Negative NITRITE (test code = 0427810017) Negative Negative LEUK MARC (test code = 8199704953) Negative Negative RBC/HPF (test code = 4113312067) See_Comment [Automated messa ge] The system which generated this result transmitted reference range: 0 - 3 HPF. The reference range was not used to interpret this result as normal/abnormal. WBC/HPF (test code = 8203126711) See_Comment [Automated messa ge] The system which generated this result transmitted reference range: 0 - 5 HPF. The reference range was not used to interpret this result as normal/abnormal. BACTERIA (test code = 1364161121) Negative Negative MUCOUS (test code = 3305510357) Slight Negative LPF A SQ EPITH (test code = 7639927528) HPF Lab Interpretation (test code = 56635-7) Abnormal [facility] with Dqjxnpmmacgb6229-39-26 00:55:00* Test Item Value Reference Range Interpretation [...] 34.5 g/dL 31.6-35.1 RDW-SD (test code = 57455-9) 42.5 fL 39-49.9 RDW-CV (test code = 788-0) 13.5 % 12-15.5 PLT (test code = 777-3) See_Comment [Automated DataArta ge] The system which generated this result transmitted reference range: 166 - 358 10*3/?L. The reference range was not used to interpret this result as normal/abnormal. MPV (test code = 43219-5) 10.1 fL 9.5-12.9 NRBC/100 WBC (test code = 9292408048) See_Comment [Automated [employer] ssage] The system which generated this result transmitted reference range: 0.0 - 10.0 /100 WBCs. The reference range was not used to interpret this result as normal/abnormal. NRBC x10^3 (test code = 3331409701) <0.01 See_Comment [Automated DataArta ge] The system which generated this result transmitted reference range: 10*3/?L. The reference range was not used to interpret this result as normal/abnormal. GRAN MAT (NEUT) % (test code = 770-8) 61.9 % IMM GRAN % (test code = 0970978111) 0.60 % LYMPH % (test code = 736-9) 30.6 % MONO % (test code = 5905-5) 5.2 % EOS % (test code = 713-8) 1.4 % BASO % (test code = 706-2) 0.3 % GRAN MAT x10^3(ANC) (test code = 0680085312) 8.03 10*3/uL 1.88-7.09 H IMM GRAN x10^3 (test code = 4565102300) 0.08 10*3/uL 0-0.06 H LYMPH x10^3 (test code = 731-0) 3.97 10*3/uL 1.32-3.29 H MONO x10^3 (test code = 742-7) 0.68 10*3/uL 0.33-0.92 EOS x10^3 (test code = 711-2) 0.18 10*3/uL 0.03-0.39 BASO x10^3 (test code = 704-7) 0.04 10*3/uL 0.01-0.07 Lab Interpretation (test code = 87653-8) [facility] (ID NOW RAPID TESTING)2020-05-17 00:27:00* Test Item Value Reference Range Interpretation Comme nts SARS-CoV-2 Rapid ID NOW (test code = 30305-0) Not Detected Not Detected DARWIN (test code = DARWIN) ID NOW COVID-19 As say is an isothermal nucleic acid amplification test intended for the qualitative detection of nucleic acid from SARS-CoV-2 viral RNA in nasopharyngeal (AUTOMOBILE LEASING SUPERVISOR) specimens. It is used under Emergency Use [...] clinically indicated. Lab Interpretation (test code = 44544-7) [facility] (NA, K, CL, CO2, GLUCOSE, BUN, CREATININE, CA)2020-05-17 00:00:00* Test Item Value Reference Range Interpretation Comme nts NA (test code = 7957682595) 136 mmol/L 135-145 K (test code = 4970319320) 3.6 mmol/L 3.5-5 CL (test code = 0727173265) 103 mmol/L 98-108 CO2 TOTAL (test code = 1363201661) 26 mmol/L 23-31 AGAP (test code = 6746980938) 2-16 BUN (test code = 5912994698) 13 mg/dL 7-23 GLUCOSE (test code = 4539131443) 130 mg/dL 70-110 H CREATININE (test code = 4349440345) 0.58 mg/dL 0.5-1.04 CALCIUM (test code = 8727743486) 9.9 mg/dL 8.6-10.6 eGFR Calculation (Non-) (test code = 7394811430) mL/min/1.73m2 eGFR Calculation () (test code = 4884506556) mL/min/1.73m2 DARWIN (test code = DARWIN) Association [...] imaging tests). Lab Interpretation (test code = 80894-3) [facility] (ALB, T.PRO, BILI T, BU/BC, ALT, AST, ALK PHOS)2020-05-17 00:00:00* Test Item Value Reference Range Interpretation Comme nts TOTAL BILI (test code = 6450552739) 0.4 mg/dL 0.1-1.1 BILI UNCON (test code = 1080744907) 0.3 mg/dL 0.1-1.1 BILI CONJ (test code = 8380967804) 0.0 mg/dL 0-0.3 T PROTEIN (test code = 7825066023) 7.3 g/dL 6.3-8.2 ALBUMIN (test code = 3436526829) 4.3 g/dL 3.5-5 ALK PHOS (test code = 2023854599) 118 U/L 34-122 ALTv (test code = 1742-6) 119 U/L 5-35 H AST(SGOT) (test code = 4661188244) 47 U/L 13-40 H Lab Interpretation (test cod e = 15416-9) [facility] HeightsLip[facility] [id number] 00:00:00* Test Item Value Reference Range Interpretation Comme nts LIPASE (test code = 3706643771) 70 U/L 0-220 Lab Interpretation (test cod e = 69502-3) [facility] HeightsCB with Iojktqlvrmts9937-52-11 23:49:00* Test Item Value Reference Range Interpretation Comme nts WBC (test code = 6690-2) See_Comment [Automated DataArta ge] The system which generated this result transmitted reference range: 4.30 - 11.10 10*3/?L. The reference range was not used to interpret this result as normal/abnormal. RBC (test code = 789-8) See_Comment [Automated DataArta ge] The system which generated this result [...] 33.3 g/dL 31.6-35.1 RDW-SD (test code = 61100-3) 42.8 fL 39-49.9 RDW-CV (test code = 788-0) 13.5 % 12-15.5 PLT (test code = 777-3) See_Comment [Automated messa ge] The system which generated this result transmitted reference range: 166 - 358 10*3/?L. The reference range was not used to interpret this result as normal/abnormal. MPV (test code = 57049-5) 9.8 fL 9.5-12.9 NRBC/100 WBC (test code = 2432637875) See_Comment [Automated me ssage] The system which generated this result transmitted reference range: 0.0 - 10.0 /100 WBCs. The reference range was not used to interpret this result as normal/abnormal. NRBC x10^3 (test code = 1625417128) <0.01 See_Comment [Automated me ssage] The system which generated this result transmitted reference range: 10*3/?L. The reference range was not used to interpret this result as normal/abnormal. GRAN MAT (NEUT) % (test code = 770-8) 62.5 % IMM GRAN % (test code = 8527961118) 0.50 % LYMPH % (test code = 736-9) 29.8 % MONO % (test code = 5905-5) 5.6 % EOS % (test code = 713-8) 1.1 % BASO % (test code = 706-2) 0.5 % GRAN MAT x10^3(ANC) (test code = 2055316207) 6.65 10*3/uL 1.88-7.09 IMM GRAN x10^3 (test code = 9791514557) 0.05 10*3/uL 0-0.06 LYMPH x10^3 (test code = 731-0) 3.17 10*3/uL 1.32-3.29 MONO x10^3 (test code = 742-7) 0.59 10*3/uL 0.33-0.92 EOS x10^3 (test code = 711-2) 0.12 10*3/uL 0.03-0.39 BASO x10^3 (test code = 704-7) 0.05 10*3/uL 0.01-0.07 [facility] HeightsACETAMINOPHEN2020-11-08 08:24:00* Test Item Value Reference Range Interpretation Comme nts ACETAMINOP (test code = 4672605923) 21.0 ug/mL 10-30 DARWIN (test code = DARWIN) Toxic: Greater joan n 200 ug/mL @ 4 hour post ingestion or greater than 50 ug/mL @ 12 hour post ingestion Lab Interpretation (test code = 28585-1) Normal [facility] HeightsETHANOL2020-11-08 06:37:00* Test Item Value Reference Range Interpretation Comme nts ALCOHOL (test code = 3482840437) <10 mg/dL DARWIN (test code = DARWIN) <10 Pujhmxfv87-655 Toxic>100 Depression of PUBLIC HEALTH ADVISOR>400 Fatalities Reported [facility] (NA, K, CL, CO2, GLUCOSE, BUN, CREATININE, CA)2020-05-15 06:35:00* Test Item Value Reference Range Interpretation Comme nts NA (test code = 3381846678) 137 mmol/L 135-145 K (test code = 3151589078) 4.0 mmol/L 3.5-5 CL (test code = 0023469737) 106 mmol/L 98-108 CO2 TOTAL (test code = 1427122125) 25 mmol/L 23-31 AGAP (test code = 3522857064) 2-16 BUN (test code = 1072216100) 9 mg/dL 7-23 GLUCOSE (test code = 1461060913) 95 mg/dL 70-110 CREATININE (test code = 3386290053) 0.53 mg/dL 0.5-1.04 CALCIUM (test code = 3167070211) 9.0 mg/dL 8.6-10.6 eGFR Calculation (Non-) (test code = 3590476002) mL/min/1.73m2 eGFR Calculation () (test code = 7470265584) mL/min/1.73m2 DARWIN (test code = DARWIN) Association [...] or urine or abnormalities in imaging tests). [facility] (ALB, T.PRO, BILI T, BU/BC, ALT, AST, ALK PHOS)2020-05-15 06:35:00* Test Item Value Reference Range Interpretation Comme nts TOTAL BILI (test code = 1109351960) 0.4 mg/dL 0.1-1.1 BILI UNCON (test code = 3513726365) 0.2 mg/dL 0.1-1.1 BILI CONJ (test code = 8317678329) 0.0 mg/dL 0-0.3 T PROTEIN (test code = 9293275195) 6.3 g/dL 6.3-8.2 ALBUMIN (test code = 9675316309) 3.8 g/dL 3.5-5 ALK PHOS (test code = 1859811386) 117 U/L 34-122 ALTv (test code = 1742-6) 179 U/L 5-35 H AST(SGOT) (test code = 7222519786) 194 U/L 13-40 H Lab Interpretation (test cod e = 09211-7) [facility]normal [facility] HeightsLip[facility] Zqqlo1684-86-41 06:35:00* Test Item Value Reference Range Interpretation Comme nts LIPASE (test code = 7587324342) 92 U/L 0-220 Lab Interpretation (test cod e = 10099-3) [facility]* Test Item Value Reference Range Interpretation Comme [facility] APTT Patient (test code = 3173-2) See_Comment [Automated message] The system which generated this result transmitted reference range: 23 - 38 Seconds. The reference range was not used to interpret this result as normal/abnormal. DARWIN (test code = DARWIN) The [facility] patient population mean normal value for aPTT is 30 seconds. Lab Interpretation (test code = 22513-7) [facility] 06:21:00* Test Item Value Reference Range Interpretation Comme [facility] APPEARANCE (test code = 4440651732) Clear Clear COLOR (test code = 8371656395) Yellow Yellow PH (test code = 0470793610) 4.8-8.0 SP GRAVITY (test code = 6624396049) 1.003-1.030 GLU U QUAL (test code = 6543156453) Normal Normal BLOOD (test code = 6056902141) Negative Negative KETONES (test code = 5312322578) Negative Negative PROTEIN (test code = 2887-8) Negative Negative UROBILIN (test code = 3340068113) Normal Normal BILIRUBIN (test code = 2281666378) Negative Negative NITRITE (test code = 4980211966) Negative Negative LEUK MARC (test code = 9398838332) Negative Negative RBC/HPF (test code = 6180802578) See_Comment [Automated DataArta ge] The system which generated this result transmitted reference range: 0 - 3 HPF. The reference range was not used to interpret this result as normal/abnormal. WBC/HPF (test code = 4922998042) <1 See_Comment [Automated messa ge] The system which generated this result transmitted reference range: 0 - 5 HPF. The reference range was not used to interpret this result as normal/abnormal. BACTERIA (test code = 4166152549) Negative Negative MUCOUS (test code = 9177858695) Slight Negative LPF A SQ EPITH (test code = 6275470476) HPF Lab Interpretation (test code = 31276-7) [facility] / [id number] 06:20:00 * Test Item Value Reference Range Interpretation Comme [facility] PROTIME PATIENT (test code = 5964-2) See_Comment [Automated messa ge] The system which generated this result transmitted reference range: 12.0 - 14.7 Seconds. The reference range was not used to interpret this result as normal/abnormal. INR (test code = 6301-6) Normal INR <1.1; Warfarin Therapeutic range 2.0 to 3.0 or 2.5 to 3.5, depending upon the indications. Lab Interpretation (test code = 38608-0) Normal [facility] / [facility] - DRUG SCREEN [id number] 06:19:00* Test Item Value Reference Range Interpretation Comme nts BENZO U (test code = 6246211502) Presumptive Positive Negative A ROSA U (test code = 0124474602) Negative Negative AMPHET (test code = 6001497581) Negative Negative THC (test code = 0141811320) Negative Negative METHADONE (test code = 1963897080) Negative Negative Meth U (test code = 1687531231) Negative Negative OPIATES (test code = 4933698473) Negative Negative Cocaine Metabolite (test code = 5801338101) Negative Negative PROPOXY (test code = 0222731741) Negative Negative Tric U (test code = 2167264925) Negative Negative PCP (test code = 4812612913) Negative Negative OXYCOD (test code = 8643524878) Negative Negative DARWIN (test code = DARWIN) [...] legal testing). Lab Interpretation (test code = 53057-6) Abnormal [facility] with [id number] 06:07:00* Test Item Value Reference Range Interpretation [...] 34.3 g/dL 31.6-35.1 RDW-SD (test code = 56654-3) 43.4 fL 39-49.9 RDW-CV (test code = 788-0) 13.7 % 12-15.5 PLT (test code = 777-3) See_Comment [Automated messa ge] The system which generated this result transmitted reference range: 166 - 358 10*3/?L. The reference range was not used to interpret this result as normal/abnormal. MPV (test code = 34670-6) 9.7 fL 9.5-12.9 NRBC/100 WBC (test code = 9035246051) See_Comment [Automated [employer] ssage] The system which generated this result transmitted reference range: 0.0 - 10.0 /100 WBCs. The reference range was not used to interpret this result as normal/abnormal. NRBC x10^3 (test code = 5903440645) <0.01 See_Comment [Automated messa ge] The system which generated this result transmitted reference range: 10*3/?L. The reference range was not used to interpret this result as normal/abnormal. GRAN MAT (NEUT) % (test code = 770-8) 50.6 % IMM GRAN % (test code = 8405972657) 0.20 % LYMPH % (test code = 736-9) 42.1 % MONO % (test code = 5905-5) 5.5 % EOS % (test code = 713-8) 1.2 % BASO % (test code = 706-2) 0.4 % GRAN MAT x10^3(ANC) (test code = 5749046279) 4.31 10*3/uL 1.88-7.09 IMM GRAN x10^3 (test code = 1144922606) <0.03 0-0.06 LYMPH x10^3 (test code = 731-0) 3.58 10*3/uL 1.32-3.29 H MONO x10^3 (test code = 742-7) 0.47 10*3/uL 0.33-0.92 EOS x10^3 (test code = 711-2) 0.10 10*3/uL 0.03-0.39 BASO x10^3 (test code = 704-7) 0.03 10*3/uL 0.01-0.07 Lab Interpretation (test code = 49468-7) [facility] [id number] 05:53:00* Test Item Value Reference Range Interpretation Comme nts POCT PREG (test code = 1605) Negative On board controls acceptable with C Line (test code = 3574) Present POCT PREG LOT # (test code = 3575) HCG [id number] POCT PREG TEST DATE ( test code = 3576) 10/05/2021 Lab Interpretation (test cod e = 00892-6) Normal [facility] History and Physical Notes Date/Time Note Provider [...] (XANAX) tablet 2 mg, 2 mg, Oral, Rogelio PRECIADO Roy, MD buPROPion XL (WELLBUTRIN XL) tablet 150 mg, 150 mg, Oral, DAILY, Flako Mercado MD melatonin (MELATIN) tablet 9 mg, 9 mg, Oral, Q, Flako Mercdao MD methocarbamoL (ROBAXIN) tablet 500 mg, 500 [...] the ACR Incidental Findings Committee;Journal of the [employer] Volume 7, Issue 10, Pages [phone], April 2010). CHEST 1 VW Result Date: [...] process is identified in the chest. RL: 8039 END OF REPORT Assessment and plan: Principal [...] Flako Mercado MD 02/16/2023 IM-INTERNAL MEDICINE STAFF [facility]
--- NOTE | 2024-07-18 00:21 | RAD REPORT ---
EXAM DESCRIPTION: Chest Single View CLINICAL HISTORY: CHEST PAIN COMPARISON: Chest x-ray 04/20/2023 TECHNIQUE: Single AP view of the chest. FINDINGS: Lung volumes adequate. Cardiac silhouette is normal in size. No pneumothorax. No large pleural effusion. No focal consolidation. No acute bony finding. IMPRESSION: No evidence of acute cardiopulmonary disease. Electronically signed by: Liz Holden MD 07/18/2024 12:16 AM [facility] Due to temporary technical issues with the [employer] reporting system, reports are being melita d by the in-house radiologist without review as a courtesy to ensure prompt reporting the interpreting radiologist is fully responsible for the content of the report. Transcribed Date/Time: 07/18/2024 12:21 AM
[2024-07-18] MEDS ORDERED: KETOROLAC 30 MG/ML INJ ONE (00:30)
[2024-07-18 00:37] LABS: Absolute Lymphocytes (CBC) 3.5 K/uL (0.7-4.9); Absolute Monocytes 0.8 K/uL (0.1-1.3); Absolute Neutrophil 6.5 K/uL (1.8-8.0); Basophils % 1.2 % (0-1.3); Hematocrit 37.4 % (36.0-45.0); Hemoglobin 12.6 g/dL (12.0-15.0); Lymphocytes % 31.7 % (15.3-44.8); MCH 26.8 pg (27.0-35.0); MCHC 33.7 g/dL (32.0-36.0); MCV 79.5 fL (80-100); MPV 8.2 fL (7.6-11.3); Monocytes % 6.8 % (3.3-12.3); Neutrophils % 58.3 % (41.7-73.7); Nucleated Red Blood Cells % 0.1 % (0-0); Platelets 348 thou/uL (152-406); Red Cell Distribution Width 16.6 % (12.1-15.2)
[2024-07-18 00:38] LABS: Absolute Basophils 0.1 K/uL (0-0.5); Absolute Eosinophils 0.2 K/uL (0-0.5)
[2024-07-18 00:58] LABS: Anion Gap 10.4 mEq/L (5.0-15.0); Potassium 3.4 mEq/L (3.5-5.1); Troponin High Sensitivity 3.3 pg/mL (<58.9)
--- NOTE | 2024-07-18 01:02 | ER ---
Nurse's Notes [facility] Name: Charity Hanks Age: 44 yrs Sex: Female : 1980 Arrival Date: 07/17/2024 Time: 22:57 Bed 6 Private MD: Diagnosis: Chest pain, unspecified;Hypokalemia Presentation: 07/17 23:08 Chief complaint: Patient states: c/o CP starting today. al5 23:08 Coronavirus screen: At this time, the client does not indicate any symptoms associated al5 with coronavirus-19. Ebola Screen: No symptoms or risks identified at this time. Initial Sepsis Screen: Does the patient meet any 2 criteria? No. Patient's initial sepsis screen is negative. Does the patient have a suspected source of infection? No. Patient's initial sepsis screen is negative. Risk Assessment: Do you want to hurt yourself or someone else? Patient reports no desire to harm self or others. Onset of symptoms was July 17, 2024. 23:08 Method Of Arrival: [facility]: [facility] al5 23:08 Acuity: CARLOS 2 al5 23:08 Care prior to arrival: Medication(s) given: ASA, 81 mg, x 4, IV initiated. 22 GA, in al5 the left forearm. Triage Assessment: 23:08 General: Appears in no apparent distress. uncomfortable, Behavior is calm, cooperative. al5 Pain: Complains of pain in chest. EENT: No signs and/or symptoms were reported regarding the EENT system. Neuro: Level of Consciousness is awake, alert, obeys commands, Oriented to person, place, time, situation. Cardiovascular: Reports chest pain, Capillary refill < 3 seconds Patient's skin is warm and dry. Rhythm is sinus rhythm. Respiratory: Airway is patent Respiratory effort is even, unlabored, Respiratory pattern is regular, symmetrical. GI: No signs and/or symptoms were reported involving the gastrointestinal system. : No signs and/or symptoms were reported regarding the genitourinary system. Derm: Skin is intact, is healthy with good turgor, Skin is pink, warm \T\ dry. normal. Musculoskeletal: No signs and/or symptoms reported regarding the musculoskeletal system. SCENIC ARTIST: 07/18 00:35 unknown al5 Historical: - Allergies: 07/17 23:49 No Known Allergies; al5 - PMHx: 23:49 Anxiety; depressive disorder; Myocardial infarction; Pancreatitis; PTSD; al5 - PSHx: 23:49 cardiac stent; al5 - Immunization history:: Adult Immunizations up to date. - Infectious Disease History:: Denies. - Social history:: Smoking status: Patient reports the use of cigarette tobacco products, 3 cigarettes per day. Screenin:08 [facility] ED Fall Risk Assessment (Adult) History of falling in the last 3 months, al5 including since admission No falls in past 3 months (0 pts) Confusion or Disorientation No (0 pts) Intoxicated or Sedated No (0 pts) Impaired Gait No (0 pts) Mobility Assist Device Used No (0 pt) Altered Elimination No (0 pt) Score/Fall Risk Level 0 - 2 = Low Risk Oriented to surroundings, Maintained a safe environment, Hourly rounding (assess needs \T\ fall precautionary measures) done. Abuse screen: Denies threats or abuse. Denies injuries from another. Nutritional screening: No deficits noted. Tuberculosis screening: No symptoms or risk factors identified. Assessment: 23:08 Reassessment: see triage assessment. al5 07/18 00:37 Reassessment: Patient appears in no apparent distress at this time. No changes from al5 previously documented assessment. Patient and/or family updated on plan of care and expected duration. Pain level reassessed. Patient is alert, oriented x 3, equal unlabored respirations, skin warm/dry/pink. Vital Signs: 07/17 23:08 BP 126 / 89; Pulse 96; Resp 18; Temp 98.3; Pulse Ox 95% on R/A; Weight 109 kg; Height 5 al5 ft. 5 in. ; Pain 9/10; 23:30 BP 170 / 98; Pulse 91; Resp 18; Pulse Ox 98% on R/A; al5 07/18 00:00 BP 153 / 92; Pulse 84; Resp 17; Pulse Ox 97% on R/A; al5 01:17 BP 148 / 93; Pulse 87; Resp 17; Pulse Ox 98% on R/A; al5 07/17 23:08 Body Mass Index 39.99 (109.00 kg, 165.1 cm) al5 07/17 23:08 Pain Scale: Adult al5 ED Course: 07/17 22:58 Patient arrived in ED. jj6 22:59 Darius Jarrell MD is Attending Physician. ec2 23:08 Arm band placed on right wrist. Patient placed in the treatment room, on a stretcher, al5 on pulse oximetry. 23:08 Patient has correct armband on for positive identification. Bed in low position. Call al5 light in reach. Side rails up X2. Provided Education on: plan of care. Client placed on continuous cardiac and pulse oximetry monitoring. NIBP monitoring applied. manager monitoring on. 23:08 No provider procedures requiring assistance completed. Maintain EMS IV. Dressing al5 intact. Good blood return noted. Site clean \T\ dry. Gauge \T\ site: 22g lfa. 23:08 Patient maintains SpO2 saturation greater than 95% on room air. al5 23:13 Becky Marshall, JAMES is Primary Nurse. al5 23:22 CXR XRAY In Process Unspecified. EDMS 23:46 Triage completed. al5 07/18 01:18 IV discontinued, intact, bleeding controlled, No redness/swelling at site. Pressure al5 dressing applied. Administered Medications: 00:33 Drug: Ketorolac IVP 15 mg IVP once Route: IVP; Site: left forearm; al5 01:06 Follow up: Response: No adverse reaction; No change in condition al5 01:17 Drug: Potassium Chloride PO 40 mEq PO once Route: PO; al5 01:17 Follow up: Response: No adverse reaction; Medication Administered at Departure al5 Medication: 07/17 23:08 VIS not applicable for this client. al5 Outcome: 07/18 01:01 Discharge ordered by . ec2 01:18 Discharged to home ambulatory, al5 01:18 Condition: good 01:18 Discharge instructions given to patient, Instructed on discharge instructions, follow up and referral plans. benefits of quitting smoking, Demonstrated understanding of instructions, follow-up care, 01:19 Patient left the ED. al5 Signatures: Dispatcher [employer] EDMN Sarah Majano j6 Darius Jarrell MD MD ec2 Becky Marshall, RN RN al5 Corrections: (The following items were deleted from the chart) 07/17 23:51 23:49 Allergies: No Known Allergies; al5 al5
--- NOTE | 2024-07-18 01:02 | EDPHYS ---
Physician Documentation [facility] Name: Charity Hanks Age: 44 yrs Sex: Female : 1980 Arrival Date: 07/17/2024 Time: 22:57 Bed 6 Private MD: ED Physician Darius Jarrell HPI: 07/17 23:13 This 44 yrs old Female presents to ER via Unassigned with complaints of Chest ec2 Pain. 23:13 Patient arrives today for chest pain. Patient reports that she has been having chest ec2 pain, no exertional component to it. External record review shows that patient had a cardiac catheterization performed approximately 1 month ago. Cardiac cath was nonactionable.. 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 - Infectious Disease History:: Denies. - Social history:: Smoking status: Patient reports the use of cigarette tobacco products, 3 cigarettes per day. ROS: 23:13 Constitutional: as per hpi ec2 Exam: 23:13 Constitutional: GEN: NAD Head: atraumatic Eyes: EOMI Ears: External ears are ec2 normal. CV: regular rate LUNGS: no respiratory distress ABD: non-distended SKIN: no evidence of rashes MSK: no evidence of trauma Vital Signs: 23:08 BP 126 / 89; Pulse 96; Resp 18; Temp 98.3; Pulse Ox 95% on R/A; Weight 109 kg; Height 5 al5 ft. 5 in. ; Pain 9/10; 23:30 BP 170 / 98; Pulse 91; Resp 18; Pulse Ox 98% on R/A; al5 11 00:00 BP 153 / 92; Pulse 84; Resp 17; Pulse Ox 97% on R/A; al5 01:17 BP 148 / 93; Pulse 87; Resp 17; Pulse Ox 98% on R/A; al5 07/17 23:08 Body Mass Index 39.99 (109.00 kg, 165.1 cm) al5 07/17 23:08 Pain Scale: Adult al5 MDM: 01/10 23:01 Medical Screening Exam initiated ec2 23:13 Data reviewed: vital signs, nurses notes. ED course: Patient arrives for chest pain. ec2 EKG independently reviewed and interpreted by me, shows sinus tachycardia, rate 106, no acute ST segment elevations, intervals are nonactionable. Will obtain lab work, chest x-ray. Will give the patient Toradol for her pain. Patient with reassuring EKG, no acute ST segment elevations, no acute ischemia identified, doubt ACS. Additionally patient did have a recent cardiac catheterization. Differential diagnosis considered included processes such as ACS, doubt PE given lack of respiratory symptoms. Additionally considered processes like pneumonia as well as volume overload.. 07/18 01:01 ED course: Metabolic profile shows slight hypokalemia, will give oral potassium. ec2 Troponin within normal ranges. Will discharge home. Return precautions given.. 07/17 23:11 Order name: Basic Metabolic Panel; Complete Time: 01:01 ec2 07/17 23:11 Order name: CBC with Diff; Complete Time: 00:48 ec2 07/17 23:11 Order name: Troponin HS; Complete Time: 01:01 ec2 07/17 23:01 Order name: CXR XRAY; Complete Time: 00:28 ec2 07/17 23:11 Order name: EKG; Complete Time: 23:12 ec2 07/17 23:01 Order name: EKG - Nurse/Tech; Complete Time: 00:25 ec2 07/17 23:11 Order name: Cardiac monitoring; Complete Time: 23:55 ec2 07/17 23:11 Order name: IV Saline Lock; Complete Time: 23:55 ec2 07/17 23:11 Order name: Labs collected and sent; Complete Time: 23:55 ec2 07/17 23:11 Order name: O2 Per Protocol; Complete Time: 23:55 ec2 07/17 23:11 Order name: O2 Sat Monitoring; Complete Time: 23:55 ec2 Administered Medications: 00:33 Drug: Ketorolac IVP 15 mg IVP once Route: IVP; Site: left forearm; al5 01:06 Follow up: Response: No adverse reaction; No change in condition al5 01:17 Drug: Potassium Chloride PO 40 mEq PO once Route: PO; al5 01:17 Follow up: Response: No adverse reaction; Medication Administered at Departure al5 Disposition Summary: 07/18/24 01:01 Discharge Ordered Notes: Location: Home ec2 Condition: Stable ec2 Diagnosis - Chest pain, unspecified ec2 - Hypokalemia ec2 Followup: ec2 - With: Private Physician - When: - Reason: Re-evaluation by your physician Discharge Instructions: - Discharge Summary Sheet ec2 - Nonspecific Chest Pain, Adult ec2 Forms: - Medication Reconciliation Form ec2 - Antibiotic Education ec2 - Prescription Opioid Use ec2 - Patient Portal Instructions ec2 - Leadership Thank You Letter ec2 Signatures: Dispatcher [employer] EDMS Darius Jarrell MD MD ec2 Becky Marshall RN RN al5 Corrections: (The following items were deleted from the chart) 07/17 23:12 23:12 BASIC METABOLIC PANEL+C.LAB.BRZ ordered. EDMS EDMS 23:12 23:12 CBC+H.LAB.BRZ ordered. EDMS EDMS 23:12 23:12 Troponin High Sensitivity+C.LAB.BRZ ordered. EDMS EDMS 23:51 23:49 Allergies: No Known Allergies; al5 al5
[2024-07-18] MEDS ORDERED: POTASSIUM CL SA 10 MEQ TAB PO ONE (01:13)
[2024-07-18 01:32] VITALS: TEMP 98.3
[2024-07-18 01:46] VITALS: BP 148/93; O2SAT 98
== END 2024-07-18 01:19 | disposition home or self-care (01) ==
LOC: ER 22:57
DX: R07.9 Chest pain, unspecified (principal); E87.6 Hypokalemia; F41.9 Anxiety disorder, unspecified; F32.A Depression, unspecified; I25.2 Old myocardial infarction; F43.10 Post-traumatic stress disorder, unspecified; F17.210 Nicotine dependence, cigarettes, uncomplicated
CPT/HCPCS: 36415; 71045; 80048; 84484; 85025; 96374; 99285

== ENCOUNTER 2024-08-03 18:36 | Emergency (ER) | payer OTHER ==
[2024-08-03] MEDS ORDERED: ONDANSETRON 4 MG/2 ML VIAL ONE (19:53)
[2024-08-03] MEDS ORDERED: NA CHLORIDE 0.9% 1,000 ML ONE (19:54)
[2024-08-03] MEDS ORDERED: MORPHINE 4 MG/ML SYR ONE (19:54)
[2024-08-03 20:01] LABS: Specific Gravity 1.023 (1.005-1.030); Urine Bacteria None Seen /HPF (<20); Urine Bilirubin NEGATIVE (Negative); Urine Blood Negative (Negative); Urine Clarity Extremely Turbid (Clear); Urine Color Light-Yellow (Yellow); Urine Culture Reflex Order NOT NEEDED; Urine Glucose NEGATIVE (Negative); Urine Ketones NEGATIVE (Negative); Urine Microscopic Reflex YN ORDER UMIC; Urine Mucus Slight /HPF (None Seen); Urine Nitrite NEGATIVE (Negative); Urine Protein TRACE (Negative); Urine RBC <5 /HPF (None Seen); Urine Urobilinogen Normal (Normal); Urine WBC <5 /HPF (<5); Urine Yeast (Budding) Trace /HPF (None Seen); Urine pH 5.5 (5.0-7.0)
[2024-08-03 20:02] LABS: Specific Gravity 1.023 (1.005-1.030)
[2024-08-03 20:11] LABS: Absolute Basophils 0.1 K/uL (0-0.5); Absolute Eosinophils 0.2 K/uL (0-0.5); Absolute Lymphocytes (CBC) 3.5 K/uL (0.7-4.9); Absolute Monocytes 0.8 K/uL (0.1-1.3); Absolute Neutrophil 10.4 K/uL (1.8-8.0); Basophils % 0.6 % (0-1.3); Eosinophils % 1.5 % (0-4.4); Hematocrit 38.8 % (36.0-45.0); Lymphocytes % 23.2 % (15.3-44.8); MCH 26.9 pg (27.0-35.0); MCHC 33.5 g/dL (32.0-36.0); MCV 80.3 fL (80-100); MPV 7.8 fL (7.6-11.3); Monocytes % 5.4 % (3.3-12.3); Neutrophils % 69.3 % (41.7-73.7); Nucleated RBC Absolute Count 0.1 (0-0); Nucleated Red Blood Cells % 0.4 % (0-0); Platelets 290 thou/uL (152-406); RBC Red Blood Cell Count 4.83 M/uL (3.86-4.86); Red Cell Distribution Width 16.8 % (12.1-15.2)
[2024-08-03 20:35] LABS: Albumin/Globulin Ratio 0.8 (1.1-1.8); Alkaline Phosphatase 23 U/L (45-117); Anion Gap 11.4 mEq/L (5.0-15.0); BUN Blood Urea Nitrogen 4 mg/dL (7-18); Bicarbonate 8 mEq/L (21-32); Globulin 1.2 g/dL (2.3-3.5); Glucose Level 45 mg/dL (74-106); Lipase 16 U/L (13-75); Potassium 1.4 mEq/L (3.5-5.1); Protein, Total 2.2 g/dL (6.4-8.2)
[2024-08-03 20:36] LABS: ALT/SGPT < 14 U/L (13-56); AST/SGOT < 10 U/L (15-37); Bilirubin Total < 0.2 mg/dL (0.2-1.0); Glomerular Filtration Rate 139 ml/min (=/>90)
[2024-08-03 20:38] LABS: Sodium Level 153 mEq/L (136-145)
[2024-08-03] MEDS ORDERED: KETOROLAC 30 MG/ML INJ ONE (21:06)
--- NOTE | 2024-08-03 21:09 | RAD REPORT ---
EXAMINATION: CT ABDOMEN AND PELVIS WITH CONTRAST CLINICAL INDICATION: Female, 44 years old.LLQ abdomen pain TECHNIQUE: CT abdomen and pelvis was performed, after the administration of IV contrast, as per [facility] protocol. Axial, sagittal and coronal reconstructions were obtained. One or more of the following dose reduction techniques were used: Automated exposure control, adjustment of the mA and/o r kV according to patient size, and/or iterative reconstruction. Unless otherwise specified, incidental findings do not require dedicated imaging follow-up. [id number]. COMPARISON: 03/02/2024 FINDINGS: LOWER CHEST: No acute process identified.No significant pericardial effusion. UPPER GI: No significant abnormality. LIVER: Hepatomegaly. Mild intrahepatic biliary duct dilatation. GALLBLADDER/BILE DUCTS: Cholecystectomy. Mild extra-hepatic biliary ductal dilatation is likely relat ed to the post-cholecystectomy state. Consider correlating with LFT's.? PANCREAS: No mass, ductal dilation, or patsy-pancreatic fluid. SPLEEN: Unremarkable. ADRENALS: Left adrenal nodule which is unchanged since at least 06/10/2022 and benign. It measures 2.7 cm. KIDNEYS AND URETERS: No hydronephrosis.No suspicious renal mass. ABDOMINAL AORTA AND OTHER VESSELS: Mild atherosclerotic changes. PERITONEUM: No abnormal free fluid. No free air. LYMPH NODES: No pathologic lymphadenopathy. ABDOMINAL WALL: Unremarkable SMALL BOWEL/COLON: Small bowel has normal course and caliber. No colonic wall thickening or pericolon ic inflammatory changes.Normal appendix. URINARY BLADDER: Underdistended but grossly unremarkable. REPRODUCTIVE ORGANS: Possible subserosal fibroid on the left which is unchanged. MUSCULOSKELETAL: No acute or suspicious osseous abnormality. ADDITIONAL FINDINGS: None. IMPRESSION: No acute or significant abnormalities seen in the abdomen or pelvis.
[2024-08-03 21:39] LABS: Blood Morphology Comment NOT SEEN (NOT SEEN); Platelet Estimate ADEQ; White Blood Cell Scan OK (OK)
[2024-08-03 21:40] LABS: ALT/SGPT 19 U/L (13-56); AST/SGOT 11 U/L (15-37); Albumin 2.7 g/dL (3.4-5.0); Albumin/Globulin Ratio 0.7 (1.1-1.8); Alkaline Phosphatase 69 U/L (45-117); Anion Gap 12.7 mEq/L (5.0-15.0); BUN Blood Urea Nitrogen 8 mg/dL (7-18); Bicarbonate 19 mEq/L (21-32); Globulin 3.7 g/dL (2.3-3.5); Glomerular Filtration Rate 109 ml/min (=/>90); Glucose Level 100 mg/dL (74-106); Magnesium 1.9 mg/dL (1.6-2.4); Potassium 3.7 mEq/L (3.5-5.1); Protein, Total 6.4 g/dL (6.4-8.2); Sodium Level 138 mEq/L (136-145)
[2024-08-03 21:41] LABS: Bilirubin Total < 0.2 mg/dL (0.2-1.0)
[2024-08-03] MEDS ORDERED: POTASSIUM 25 MEQ EFFERV TAB ONE (22:09)
--- NOTE | 2024-08-03 22:13 | ER ---
Nurse's Notes [facility] Name: Charity Hanks Age: 44 yrs Sex: Female : 1980 Arrival Date: 08/03/2024 Time: 18:36 Bed 11 Private MD: Diagnosis: Lower abdominal pain, unspecified Presentation: 08/03 18:48 Chief complaint: Patient states: she was brought in by central [facility] for left sided ap3 abdominal pain that started approx 3 hours ago. patient currently rates her pain as a 12/10 on the pain scale. patient also reports nausea with the pain. EMS initiated a 22g IV to the left forearm and gave patient a gram of IV Tylenol of which the patient gave no relief. Coronavirus screen: At this time, the client does not indicate any symptoms associated with coronavirus-19. Ebola Screen: No symptoms or risks identified at this time. Initial Sepsis Screen: Does the patient meet any 2 criteria? HR > 90 bpm. No. Patient's initial sepsis screen is negative. Does the patient have a suspected source of infection? No. Patient's initial sepsis screen is negative. Risk Assessment: Do you want to hurt yourself or someone else? Patient reports no desire to harm self or others. Onset of symptoms was August 03, 2024 at 16:00. 18:48 Method Of Arrival: EMS: [facility] ap3 18:48 Acuity: CARLOS 3 ap3 18:51 Care prior to arrival: Medication(s) given: Tylenol, 1000 mg. ap3 Triage Assessment: 18:50 General: Appears uncomfortable, Behavior is calm, cooperative, appropriate for age. ap3 Pain: Complains of pain in left lower quadrant Pain currently is 10 out of 10 on a pain scale. Pain began 3 hours ago. Neuro: Level of Consciousness is awake, alert, obeys commands, Oriented to person, place, time, situation, Appropriate for age. Cardiovascular: Patient's skin is warm and dry. Respiratory: Airway is patent Respiratory effort is even, unlabored, Respiratory pattern is regular, symmetrical. GI: Reports lower abdominal pain, nausea. 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 - Infectious Disease History:: Denies. - Social history:: Smoking status: Patient reports the use of cigarette tobacco products, denies chronic smoking, but will smoke occasionally. Screenin:51 [facility] ED Fall Risk Assessment (Adult) History of falling in the last 3 months, ap3 including since admission No falls in past 3 months (0 pts) Confusion or Disorientation No (0 pts) Intoxicated or Sedated No (0 pts) Impaired Gait No (0 pts) Mobility Assist Device Used No (0 pt) Altered Elimination No (0 pt) Score/Fall Risk Level 0 - 2 = Low Risk Oriented to surroundings, Maintained a safe environment, Educated pt \T\ family on fall prevention, incl call for assistance when getting out of bed, Assessed \T\ reinforced patient's understanding of fall precautions, Hourly rounding (assess needs \T\ fall precautionary measures) done, Used ambulatory aids as needed (educated on \T\ assisted with), Used gait belt as appropriate. Abuse screen: Denies threats or abuse. Nutritional screening: No deficits noted. Tuberculosis screening: No symptoms or risk factors identified. Assessment: 19:15 General: Appears in no apparent distress. Pain: Complains of pain in abdomen and left kj2 lower quadrant Pain currently is 9 out of 10 on a pain scale. Neuro: Level of Consciousness is awake, alert, obeys commands, Oriented to person, place, time, situation. Cardiovascular: Patient's skin is warm and dry. Respiratory: Airway is patent Respiratory effort is even, unlabored. GI: Bowel sounds present X 4 quads. Abdomen is tender to palpation in abdomen and left lower quadrant. 20:03 Reassessment: Patient appears in no apparent distress at this time. Patient and/or kj2 family updated on plan of care and expected duration. Pain level reassessed. Patient is alert, oriented x 3, equal unlabored respirations, skin warm/dry/pink. 21:07 Reassessment: Patient appears in no apparent distress at this time. Patient and/or kj2 family updated on plan of care and expected duration. Pain level reassessed. Patient is alert, oriented x 3, equal unlabored respirations, skin warm/dry/pink. 22:01 Reassessment: Patient appears in no apparent distress at this time. Patient and/or kj2 family updated on plan of care and expected duration. Pain level reassessed. Patient is alert, oriented x 3, equal unlabored respirations, skin warm/dry/pink. Vital Signs: 18:48 BP 141 / 93; Pulse 105; Resp 17; Temp 98.3; Pulse Ox 100% ; Weight 104.33 kg; Height 5 ap3 ft. 2 in. ; Pain 10/10; 21:00 BP 133 / 90; Pulse 80; Resp 20; Pulse Ox 99% on R/A; kj2 18:48 Body Mass Index 42.07 (104.33 kg, 157.48 cm) ap3 18:48 Pain Scale: Adult ap3 ED Course: 18:39 Patient arrived in ED. ra3 18:41 Mayank Arvizu PA is PHCP. cp 18:41 Mayank Butler MD is Attending Physician. cp 18:50 Triage completed. ap3 18:51 Arm band placed on right wrist. ap3 19:15 Patient has correct armband on for positive identification. Bed in low position. Call kj2 light in reach. Side rails up X 1. Provided Education on: call light. 19:34 Josi Jnug, RN is Primary Nurse. kj2 20:02 No provider procedures requiring assistance completed. Maintain EMS IV. Dressing kj2 intact. Good blood return noted. Site clean \T\ dry. Gauge \T\ site: 18g left forearm. 20:54 CT Abd/Pelvis - IV Contrast Only In Process Unspecified. EDMS 22:32 IV discontinued, intact, bleeding controlled, No redness/swelling at site. Pressure vk dressing applied. Administered Medications: 19:00 CANCELLED (Physician Discretion): TORadol - [id number] mg IVP once cp 19:59 Drug: morphine IVP or IV 4 mg IVP once over 4 mins Route: IVP; Infused Over: 4 mins; kj2 Site: left forearm; 20:19 Follow up: Response: No adverse reaction kj2 20:00 Drug: Ondansetron IVP 4 mg IVP once; over 2 minutes Route: IVP; Site: left forearm; kj2 20:19 Follow up: Response: No adverse reaction kj2 20:00 Drug: NS 0.9% IV 1000 ml IV at 1 bolus Per protocol; to be given as a bolus over 60 kj2 minutes Route: IV; Rate: 1 bolus; Site: left forearm; 21:16 Drug: Ketorolac IVP 15 mg IVP once Route: IVP; Site: left forearm; kj2 22:22 Drug: Potassium PO Effervescent Tablet 25 mEq PO once; dissolve in 4 ounces of water or vc1 juice Route: PO; Medication: 22:39 VIS not applicable for this client. hb Outcome: 22:12 Discharge ordered by MD. cp 22:39 Discharged to home ambulatory, 22:39 Condition: stable 22:39 Discharge instructions given to patient, Instructed on discharge instructions, follow up and referral plans. medication usage, Demonstrated understanding of instructions, follow-up care, medications, Prescriptions given X 2, 22:40 Patient left the ED. hb Signatures: Dispatcher [employer] EDMS Mayank Arvizu PA PA cp Baxter, Heather, RN RN Becky Gutierrez RN RN vic3 Heide Jeffrey RN RN vc1 Jennifer Giraldo Vivian vk Jordan, Krystal, RN RN kj2
--- NOTE | 2024-08-03 22:13 | EDPHYS ---
Physician Documentation [facility] Name: Charity Hanks Age: 44 yrs Sex: Female : 1980 Arrival Date: 08/03/2024 Time: 18:36 Bed 11 Private MD: ED Physician Mayank Butler HPI: 08/03 19:00 This 44 yrs old Female presents to ER via EMS with complaints of Abdominal Pain. cp 19:00 The patient presents with abdominal pain in the left lower quadrant. cp 19:00 Onset: The symptoms/episode began/occurred 3 hour(s) ago. The symptoms do not radiate. cp Associated signs and symptoms: Pertinent positives: dysuria. 19:00 Patient reports history of ovarian cyst. 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 - Infectious Disease History:: Denies. - Social history:: Smoking status: Patient reports the use of cigarette tobacco products, denies chronic smoking, but will smoke occasionally. ROS: 19:05 Constitutional: Negative for body aches, chills, fever, poor PO intake, cp 19:05 Eyes: Negative for injury, pain, redness, and discharge, cp 19:05 ENT: Negative for drainage from ear(s), ear pain, sore throat, difficulty swallowing, difficulty handling secretions, 19:05 Cardiovascular: Negative for chest pain, edema, palpitations, 19:05 Respiratory: Negative for cough, shortness of breath, wheezing, 19:05 Abdomen/GI: Positive for abdominal pain, Negative for vomiting, diarrhea, constipation, 19:05 Neuro: Negative for altered mental status, dizziness, headache, weakness, 19:05 All other systems are negative, Exam: 19:10 Constitutional: The patient appears in no acute distress, alert, awake, non-toxic, well cp developed, well nourished, obese, uncomfortable, 19:10 Head/Face: Normocephalic, atraumatic. cp 19:10 Eyes: Periorbital structures: appear normal, Conjunctiva: normal, no exudate, no injection, Sclera: no appreciated abnormality, Lids and lashes: appear normal, bilaterally, 19:10 ENT: External ear(s): are unremarkable, Nose: is normal, Mouth: Lips: moist, Oral mucosa: moist, Posterior pharynx: Airway: no evidence of obstruction, patent, 19:10 Chest/axilla: Inspection: normal, 19:10 Cardiovascular: Rate: tachycardic, Rhythm: regular, 19:10 Respiratory: the patient does not display signs of respiratory distress, Respirations: normal, no use of accessory muscles, no retractions, labored breathing, is not present, Breath sounds: are clear throughout, no decreased breath sounds, no stridor, no wheezing, 19:10 Abdomen/GI: Inspection: abdomen appears normal, Bowel sounds: active, all quadrants, Palpation: soft, in all quadrants, moderate abdominal tenderness, in the left lower quadrant, rebound tenderness, is not appreciated, involuntary guarding, is not appreciated, 19:10 Back: pain, is absent, ROM is normal, 19:10 Neuro: Orientation: to person, place \T\ time. Mentation: is normal, Vital Signs: 18:48 BP 141 / 93; Pulse 105; Resp 17; Temp 98.3; Pulse Ox 100% ; Weight 104.33 kg; Height 5 ap3 ft. 2 in. ; Pain 10/10; 21:00 BP 133 / 90; Pulse 80; Resp 20; Pulse Ox 99% on R/A; kj2 18:48 Body Mass Index 42.07 (104.33 kg, 157.48 cm) ap3 18:48 Pain Scale: Adult ap3 MDM: 18:54 Medical Screening Exam initiated madeleine 20:00 Differential diagnosis: diverticulitis, gastritis, non-specific abd pain, cp Pyelonephritis, Ureterolithiasis, urinary tract infection, ovarian cyst, ovarian torsion. 22:11 Data reviewed: vital signs, nurses notes, lab test result(s), radiologic studies, CT cp scan. 22:12 I considered the following discharge prescriptions or medication management in the emergency department Medications were administered in the Emergency Department. See MAR. 22:12 Counseling: I had a detailed discussion with the patient and/or guardian regarding the historical points, exam findings, and any diagnostic results supporting the discharge/admit diagnosis, lab results, radiology results, to return to the emergency department if symptoms worsen or persist or if there are any questions or concerns that arise at home. Response to treatment: the patient's symptoms have markedly improved after treatment, and as a result, I will discharge patient. Special discussion: Based on the patient's Hx, exam, and Dx evaluation, there is no indication for emergent surgery or inpatient Tx. It is understood by the patient/guardian that if the Sx's persist or worsen they need to return immediately for re-evaluation. 08/03 18:59 Order name: CBC with Diff; Complete Time: 22:02 08/03 20:40 Interpretation: Normal except: WBC 15.00; MCH 26.9; RDW 16.8; NEUT A 10.4. 08/03 18:59 Order name: CMP; Complete Time: 20:40 08/03 20:41 Interpretation: Reviewed. 08/03 18:59 Order name: Lipase; Complete Time: 20:40 08/03 18:59 Order name: Test, Urine; Complete Time: 20:40 08/03 18:59 Order name: Urinalysis w/ reflexes; Complete Time: 20:40 08/03 21:22 Interpretation: Normal except: [facility] Extremely Turbid; UPROT TRACE; BYST Trace. 08/03 20:41 Order name: CMP: redraw; Complete Time: 22:02 08/03 22:03 Interpretation: Normal except: NA 138; K 3.7; CL 110; CO2 19; AST 11; ALK 69; BILIT < cp 0.2; CA 8.0; ALB 2.7; GLOB 3.7; A/G 0.7. 08/03 20:41 Order name: Magnesium; Complete Time: 22:02 cp 08/03 21:39 Order name: CBC Smear Scan; Complete Time: 22:02 EDMS 08/03 18:59 Order name: CT Abd/Pelvis - IV Contrast Only; Complete Time: 21:21 cp 08/03 18:59 Order name: IV Saline Lock; Complete Time: 19:48 cp 08/03 18:59 Order name: Labs collected and sent; Complete Time: 19:48 08/03 20:43 [place] [facility] [place] recollect labs; Complete Time: 21:16 vc1 Administered Medications: 19:00 CANCELLED (Physician Discretion): TORadol - [id number] mg IVP once cp 19:59 Drug: morphine IVP or IV 4 mg IVP once over 4 mins Route: IVP; Infused Over: 4 mins; kj2 Site: left forearm; 20:19 Follow up: Response: No adverse reaction kj2 20:00 Drug: Ondansetron IVP 4 mg IVP once; over 2 minutes Route: IVP; Site: left forearm; kj2 20:19 Follow up: Response: No adverse reaction kj2 20:00 Drug: NS 0.9% IV 1000 ml IV at 1 bolus Per protocol; to be given as a bolus over 60 kj2 minutes Route: IV; Rate: 1 bolus; Site: left forearm; 21:16 Drug: Ketorolac IVP 15 mg IVP once Route: IVP; Site: left forearm; kj2 22:22 Drug: Potassium PO Effervescent Tablet 25 mEq PO once; dissolve in 4 ounces of water or vc1 juice Route: PO; Disposition: 08/04 14:22 Co-signature as Attending Physician, Mayank Butler MD I agree with the assessment and madeleine plan of care. Disposition Summary: 08/03/24 22:12 Discharge Ordered Notes: Location: Home cp Problem: new cp Symptoms: have improved cp Condition: Stable cp Diagnosis - Lower abdominal pain, unspecified cp Followup: cp - With: Private Physician - When: 2 - 3 days - Reason: Recheck today's complaints Discharge Instructions: - Discharge Summary Sheet cp - Abdominal Pain, Adult cp Forms: - Medication Reconciliation Form cp - Antibiotic Education cp - Prescription Opioid Use cp - Patient Portal Instructions cp - Leadership Thank You Letter cp Prescriptions: - Anaprox DS 550 mg Oral Tablet - take 1 tablet ORAL route every 12 hours As needed; 20 tablet; Refills: 0, cp Product Selection Permitted - Zofran 4 mg Oral Tablet - take 1 tablet ORAL route every 12 hours As needed; 20 tablet; Refills: 0, cp Product Selection Permitted Signatures: Dispatcher [employer] Mayank Wright MD MD cha Page, Corey, PA PA cp Prokisch, Amanda, RN RN ap3 Heide Jeffrey RN RN vc1 Josi Jung RN RN kj2 Corrections: (The following items were deleted from the chart) 08/03 19:00 18:59 TORadol - Ketorolac IVP 15 mg IVP once ordered. cp cp 20:42 20:42 COMPREHENSIVE METABOLIC PANEL+C.LAB.BRZ ordered. EDMS EDMS : 20:42 MAGNESIUM+C.LAB.BRZ ordered. EDMS EDMS
[2024-08-04 06:45] VITALS: TEMP 98.3
[2024-08-04 06:46] VITALS: BP 133/90; O2SAT 99
--- OUTSIDE RECORDS SUMMARY | 2024-08-05 02:02 | XMS REPORT | Continuity of Care Document ---
Author Name Unknown Address [address] [facility] [address] [place] [address] [facility] thconnect Address [address] [facility] [place] [address] Support Name Relationship Address Phone RACHEL CASH Father Unknown Unavailable PHYSICIAN, NO Primary Care Physician Unknown Unav ailable MD MORA POLLOCK A Emergency Provider [address] [place] [address] JAN COX natural parent [address] [address] MD SHERIDAN MCMANUS Emergency Provider [facility], [place] [address] CHARITY ROCA Guarantor [address] [place] [address] MD RIDDHI [place] [address] MD AN IRIZARRY Emergency Provider [facility], [place] [address] MD CARLOS SOLANO A Primary Care Physician [address] [facility] 3 [place] [address] OTHER, ENTER NAME IN NOTES Primary Care Physician Unknown Unavailable MD Arelis Kern Emergency Provider [address] [place] [address] MD SHAN BUSCH Attending Provider [address] [place] [address] PIYUSH JUAREZ parent [address] [place] [address] MD TAVARES MG JR, JR. Emergency Provider [address] [place] [address] Leyda Villa Mother Unknown Unavailable Rachel Cox Father [address] [place] [address] one else per patient, No Emergency Contact Unknown Unavailable Rachel Cox Father [address] [place] [address] 1 Personal Relationship Unknown Unavai lable Unavailable Personal Relationship Unknown Unavai lable Rachel Cox [address] [place] [address] PATIENT, NO ONE ELSE PER Personal Relationship Unknown Unavailable Care Team Providers Care Counselor At Law Name Role Phone OTHER, ENTER NAME IN NOTES Primary Care Physicia n Unavailable JOANNE MONTES Attending Clinician Unavailable Saleem EDWARD Attending Clinician Unavailable Saleem EDWARD Attending Clinician Unavailable Saleem Perez Attending Clinician [phone] RADIOLOGY, DEPT Attending Clinician Unavailable MD BEHZAD Attending Clinician Unavailab GISELLE Brink Attending Clinician Unavailable SANDY GARCIA Attending Clinician Unavailable SANDY GARCIA Attending Clinician Unavailable Sadny Walker Attending Clinician [phone] OLIVIA GARCIA Attending Clinician Unavailable OLIVIA GARCIA Attending Clinician Unavailable Olivia Garcia MD Attending Clinician [phone] ANNALISE WRIGHT Attending Clinician Unavailable Annalise Wright PA-C Attending Clinician [phone] Attending Clinician Unavailable Alesha Roy MD Attending Clinician + ARELIS KERN Attending Clinician Unavailab FARTUN Bernal Attending Clinician Unavailable TAVARES MG JR Attending Clinician Ari Rojo NP, Leigh Attending Clinician [phone] COSMO Attending Clinician Unavailable SHERIDAN MCMANUS Attending Clinician UnavailROBERTO Melgar Attending Clinician Unavailable Roberto Richards MD Attending Clinician + SHAN BUSCH Attending Clinician Unavailable RIDDHI MYLES Attending Clinician UnavailAN Garcia Attending Clinician Unavailable NARAYAN NARVAEZ Attending Clinician Unavailable Narayan Narvaez DO Attending Clinician + BRITTNI PADGETT S Attending Clinician Unavailable Brittni Elam S Attending Clinician + [phone] JESÚS MONTERO Attending Clinician Unavailable Leeanne Wise NP Attending Clinician + [phone] Jesús Montero MD Attending Clinician + FELTON Attending Clinician Unavailable MELIDA LONGORIA Attending Clinician Unavailable Melida Longoria MD Attending Clinician + WIL MCQUEEN Attending Clinician Unavailable Wil Joseph Attending Clinician + DEE WANG F Attending Clinician Unavaila ble Ibikunbailee INTERNET MANAGER, Folusho F Attending Clinician +07-11 Doctor Unassigned, [place] Attending Clinician U shannanailCEM Mccullough Attending Clinician Unavailable Cem Choi MD Attending Clinician [phone] Shelley Rosas RN Attending Clinician + [phone] Bal Cuevas Attending Clinician + BAL HASSAN Attending Clinician Unavailable Tremaine Jon Attending Clinician [phone] TREMAINE BECERRA Attending Clinician Unavailable LEEANNE WISE Attending Clinician Unavailable MORA POLLOCK Attending Clinician Unavailable Best Rodríguez Attending Clinician [phone] [facility] Attending Clinician Unavailable Marbella Rizo RN Attending Clinician Unavailab bailee VILLANUEVA, Abdias Attending Clinician + ABDIAS ROBERTSON Attending Clinician [...] Unavail able HUGO COFFMAN Attending Clinician Unavailable Saleem EDWARD Admitting Clinician Unavailable SANDY GRACIA Admitting Clinician Unavailable OLIVIA GARCIA Admitting Clinician Unavailable ANNALISE WRIGHT Admitting Clinician Unavailable OLIVIA GARCIA Admitting Clinician Unavailable ROBERTO RICHARDS Admitting Clinician Unavailable SHAN BUSCH Admitting Clinician Unavailable RIDDHI MYLES Admitting Clinician UnaNARAYAN Suárez Admitting Clinician Unavailable JESÚS MONTERO Admitting Clinician Unavailable Jesús Montero MD Admitting Clinician [phone] FELTON Admitting Clinician Unavailable MELIDA LONGORIA Admitting [...] Date Source RAMSES TAYLOR 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 5 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 94 ON 9 [id number] 2023 00:00:00 RAMSES MCADAMS [id number] 2023 00:00:00 [facility] BC[employer] BLUE ADVANTAGE O [id number] 2020 00:00:00 Problems Condition Name Condition Details Condition Category Status Onset Date Resolution Date Last Treatment Date Treating Clinician Comments Source Generalize d abdominal pain Generalize d abdominal pain Disease Active 2023-07 0- 00:00: 00 [facility] Coronary artery disease Coronary artery [...] level Disease Active 2020-07 0- 00:00: 00 [facility] Cigarette smoker Cigarette smoker Disease Active 2020-07 0- 00:00: 00 [facility] Family history of early CAD Family history of early CAD Disease Active 2020-07 0-02 00:00: 00 [facility] Primary hypertensi on Primary hypertensi on Disease Active 2020-07 0-02 00:00: 00 [facility] Elevated brain natriureti c peptide (BNP) level Elevated brain natriureti c peptide (BNP) level Disease Active 2020-07 0-02 00:00: 00 [facility] Snores Snores Disease Active 2020-07 0-02 00:00: 00 [facility] Morbid obesity with body mass index of 40.0-49.9 Morbid obesity with body mass index of 40.0-49.9 Disease Active 2020-07 0- 00:00: 00 [facility] Abdominal pain Problem [facility] Acute coronary syndrome without high troponin Problem [facility]al [facility]al [facility] Encounter for counseling regarding advance directives [facility] Allergic rhinitis [facility] Angina pectoris Problem [facility] Anxiety and depression Problem [facility] Chest pain [facility] Gastroente ritis [facility] Malaise [facility] Otitis externa of left ear Problem [facility] Cyst of ovary Problem [facility] Post traumatic stress disorder (PTSD) Problem [facility] Tobacco abuse Problem [facility] Urinary tract infection [facility] No known active problems No known active problems Disease [facility] Allergies, Adverse Reactions, Alerts Allergy Name Allergy Type Status Severity Reaction(s) Onset Date Inactive Date Treating Clinician Comments Source NO KNOWN ALLERGIE S Drug Class Active [facility] Social History Social Habit Start Date Stop Date Quantity Comments Source History of tobacco use [facility] Gender identity [facility] Sexual orientation Saleem Buckley - External [...] 2023-07-17 22:17:29 2023-07-17 22:17:29 Female (finding) Kellee Ariasnicolbeck - External Tobacco Comment 2023-02-15 00:00:00 2023-02-15 00:00:00 In the process of quitting. Now smokes 5 cigarettes/ day from 2 packs per day [facility] Tobacco use and exposure 2023-02-15 00:00:00 2023-02-15 00:00:00 User of smokeless tobacco [facility] Exposure to SARS-CoV-2 (event) 2021-12-30 00:00:00 2022-01-09 16:34:00 Unable to assess [facility] Education 2021-04-07 00:00:00 2021-04-07 00:00:00 13 [facility] Sex assigned at 1980 00:00:00 1980 00:00:00 Kellee Davies Smoking Status Start Date Stop Date Source Smokes tobacco daily 2023-02-15 00:00:00 [facility] Unknown if ever smoked [facility] Medications Ordered Medication Name Filled Medication Name Start Date Stop Date Current Medication? Ordering Clinician Indication Dosage Frequency Signature (SIG) Comments Components Source methylpredn isolone sod succ (SOLU-MEDRO L) injection 125 mg 07-19 08:00: 00 07-19 07:05 :00 No 125mg 125 mg, Slow IV Push, ONCE, 1 dose, On 07/19/24 at 0200, Routine [facility] ipratropium -albuteroL (DUONEB) 0.5 mg-3 mg(2.5 mg base)/3 mL nebulizer solution 3 mL 07-19 08:00: 00 07-19 07:04 :00 No 3mL 3 mL, Inhalation , ONCE, 1 dose, On 07/19/24 at 0200, Routine [facility] azithromyci n (ZITHROMAX) tablet 500 mg 07-19 07:00: 00 07-19 07:05 :00 No 500mg 500 mg, Oral, ONCE, 1 dose, On 07/19/24 at 0100, ROSELYN, Reason for Anti-Infec tive: Documented Infection, Documented Infection Site: Respirator y, Duration of Therapy: Once (ED) [facility] iopamidol (ISOVUE 370-500 mL) injection 75 mL 07-19 06:45: 00 07-19 06:45 :00 No [id number] 75mL 75 mL, Intravenou s, ONCE, 1 dose, On 07/19/24 at 0045, Routine [facility] nitroglycer in (NITROL) 2 % ointment 0.5 Inch 07-19 06:00: 00 07-19 05:11 :00 No .5[in_u s] 0.5 Inch, Transderma l (Apply To Skin), ONCE, 1 dose, On 07/19/24 at 0000, ROSELYN [facility] ketorolac (TORADOL) injection 15 mg 07-19 06:00: 00 07-19 05:09 :00 No 15mg 15 mg, Slow IV Push, ONCE, 1 dose, On 07/19/24 at 0000, ROSELYN [facility] azithromyci n (ZITHROMAX Z-BEBETO) 250 mg tablet 07-19 00:00: 00 Yes [id number] 250mg Take 1 tablet by mouth SEE-INSTRU CTIONS. Take 500 mg day 1, then 250 mg days 2 to 5. [facility] predniSONE 20 mg tablet 07-19 00:00: 00 Yes [id number] 1 PO BID x 4 days [facility] iopamidol (ISOVUE 370-500 mL) injection 100 mL 2023-07 06:45: 00 07-04 06:45 :00 No [id number] 100mL 100 mL, Intravenou s, ONCE, 1 dose, On 07/04/24 at 0045, Routine [facility] morpHINE (4 mg/mL) injection 4 mg 2023-07 06:30: 00 07-04 06:29 :00 No 4mg 4 mg, Slow IV Push, ONCE, 1 dose, On 07/04/24 at 0030, [facility] proMETHazin e (PHENERGAN) 12.5 mg in NS 50 mL IV piggyback (CNR) 2023-07 05:15: 00 07-04 05:30 :00 No 12.5mg 12.5 mg, IV Piggyback, at 200 mL/hr Administer over 15 Minutes, ONCE, 1 dose, On Sat07/03/24 at 2315, [facility] morpHINE (4 mg/mL) injection 4 mg 2023-07 03:30: 00 07-04 03:49 :00 No 4mg 4 mg, Slow IV Push, ONCE, 1 dose, On Sat07/03/24 at 2130, STAT [facility] ondansetron (ZOFRAN (PF)) injection 4 mg 2023-07 03:30: 00 07-04 03:50 :00 No 4mg 4 mg, Slow IV Push, ONCE, 1 dose, On Sat07/03/24 at 2130, Administer over 2-5 Minutes, 2 mL [facility] NaCl 0.9% (NS) IV infusion 1,000 mL 2023-07 03:18: 00 07-04 04:56 :00 No 1000mL at 999 mL/hr, Intravenou s, ONCE, 1 dose, On Sat07/03/24 at 2130, [facility] sodium chloride (NS) injection 5 mL 2023-07 02:16: 03 Yes 5mL 5 mL, Intravenou s, PRN, Starting on Sat07/03/24 at 2016, Until Discontinu ed, Routine, IV line flushing [facility] benzonatate 100 mg capsule 2023-07 00:00: 00 Yes [id number] 100mg Take 1 capsule by mouth 3 (three) times daily as needed for Cough. [facility] proMETHazin e 25 mg tablet 2023-07 00:00: 00 Yes [id number] 25mg Take 1 tablet by mouth every 6 (six) hours as needed for Nausea and Vomiting (N/V). [facility] dicyclomine 10 mg capsule 2023-07 00:00: 00 Yes [id number] 10mg Take 1 capsule by mouth 3 (three) times daily as needed for Abdominal pain. [facility] cephALEXin (KEFLEX) capsule 500 mg 2023-07 08:45: 00 06-21 08:53 :00 No 500mg 500 mg, Oral, ONCE, 1 dose, On 06/21/24 at 0245, ROSELYN, Reason for Anti-Infec tive: Documented Infection, Documented Infection Site: Skin / Soft Tissue, Duration of Therapy: Once (ED) [facility] doxycycline hyclate (Vibramycin ) capsule 100 mg 2023-07 08:45: 00 06-21 08:53 :00 No 100mg 100 mg, Oral, ONCE, 1 dose, On 06/21/24 at 0245, ROSELYN, Reason for Anti-Infec tive: Documented Infection, Documented Infection Site: Skin / Soft Tissue, Duration of Therapy: Once (ED) [facility] doxycycline hyclate 100 mg capsule 2023-07 00:00: 00 06-29 05:59 :00 Yes [id number] 100mg Take 1 capsule by mouth in the morning and 1 capsule in the evening. Do all this for 7 days. [facility] cephALEXin 500 mg capsule 2023-07 00:00: 00 06-29 05:59 :00 Yes [id number] 500mg Take 1 capsule by mouth 4 (four) times daily for 7 days. [facility] iopamidol (ISOVUE 370-500 mL) injection 100 mL 2023-07 06:30: 00 06-15 06:30 :00 Yes [id number] 100mL 100 mL, Intravenou s, ONCE, 1 dose, On Sat06/15/24 at 0030, Routine [facility] morpHINE (4 mg/mL) injection 4 mg 2023-07 06:00: 00 06-15 05:57 :00 No 4mg 4 mg, Slow IV Push, ONCE, 1 dose, On 12/9/24 at 0000, STAT [facility] proMETHazin e (PHENERGAN) 12.5 mg in NS 50 mL IV piggyback (CNR) 2023-07 05:15: 00 06-15 05:56 :00 No 12.5mg 12.5 mg, IV Piggyback, at 200 mL/hr Administer over 15 Minutes, ONCE, 1 dose, On Sat06/14/24 at 2315, ROSELYN [facility] NaCl 0.9% (NS) IV infusion 1,000 mL 2023-07 04:30: 00 06-15 05:28 :00 No 1000mL at 999 mL/hr, Intravenou s, ONCE, 1 dose, On Sat06/14/24 at 2230, Routine [facility] fentanyl PF (SUBLIMAZE (PF)) injection 50 mcg 2023-07 04:00: 00 06-15 04:23 :00 No 50ug 50 mcg, Slow IV Push, ONCE, 1 dose, On Sat06/14/24 at 2200, Routine [facility] famotidine (PEPCID (PF)) injection 20 mg 2023-07 03:30: 00 06-15 04:18 :00 No 20mg 20 mg, Slow IV Push, ONCE, 1 dose, On Sat06/14/24 at 2130, ROSELYN [facility] ondansetron (ZOFRAN (PF)) injection 4 mg 2023-07 03:30: 00 06-15 04:20 :00 No 4mg 4 mg, Slow IV Push, ONCE, 1 dose, On 06/14/24 at 2130, Administer over 2-5 Minutes, 2 mL [facility] proMETHazin e 25 mg tablet 2023-07 00:00: 00 Yes [id number] 25mg Take 1 tablet by mouth every 6 (six) hours as needed for Nausea and Vomiting (N/V). [facility] morpHINE (4 mg/mL) injection 4 mg 2023-07 08:15: 00 06-07 08:11 :00 No 4mg 4 mg, Slow IV Push, ONCE, 1 dose, On 06/07/24 at 0215, STAT [facility] ondansetron (ZOFRAN (PF)) injection 4 mg 2023-07 05:15: 00 06-07 05:23 :00 No 4mg 4 mg, Slow IV Push, ONCE, 1 dose, On 06/06/24 at 2315, Administer over 2-5 Minutes, 2 mL [facility] morpHINE (4 mg/mL) injection 4 mg 2023-07 05:15: 00 06-07 05:21 :00 No 4mg 4 mg, Slow IV Push, ONCE, 1 dose, On 06/06/24 at 2315, STAT [facility] nitroglycer in (NITROSTAT) sublingual tablet 0.4 mg 2023-07 05:08: 35 Yes .4mg 0.4 mg, Sublingual , Q5MIN PRN, 3 doses, Starting on 06/06/24 at 2308, Until Discontinu ed, ROSELYN, Chest pain [facility] hydrOXYzine Pamoate 50 MG oral Capsule 2023-07 13:02: 35 Yes [id number] 50mg Q.5D Take 1 capsule (50 mg total) by mouth 2 times daily as needed for anxiety. Kellee pinedo Vitamin D, Ergocalcife rol, 1.25 MG (36892 UT) oral Capsule 2023-07 00:00: 00 Yes [id number] 99329X Q1W Take 1 capsule (50,000 units total) by mouth once a week. Kellee pinedo ondansetron (ZOFRAN-ODT ) disintegrat ing tablet 4 mg 2023-07 20:15: 00 05-19 19:27 :00 No 4mg 4 mg, Oral, ONCE, 1 dose, On Sat05/19/24 at 1415, Routine [facility] HYDROcodone -acetaminop hen (NORCO 5) tablet 1 tablet 2023-07 18:00: 00 05-19 19:27 :00 No 1{tbl} 1 tablet, Oral, ONCE, 1 dose, On Sat05/19/24 at 1200, [facility] ondansetron 4 mg disintegrat ing tablet 2023-07 00:00: 00 Yes [id number] 4mg Take 1 tablet by mouth every 8 (eight) hours as needed for Nausea and Vomiting (N/V). [facility] hydrOXYzine Pamoate 50 MG oral Capsule 2023-07 10:26: 29 Yes [id number] 50mg Q.5D Take 1 capsule (50 mg total) by mouth 2 times daily as needed for anxiety. Kellee pinedo ondansetron (ZOFRAN (PF)) injection 4 mg 2023-07 03:45: 00 05-18 03:42 :00 No 4mg 4 mg, Slow IV Push, ONCE, 1 dose, On 05/17/24 at 2145, [facility] morpHINE (4 mg/mL) injection 4 mg 2023-07 03:45: 00 05-18 03:42 :00 No 4mg 4 mg, Slow IV Push, ONCE, 1 dose, On 05/17/24 at 2145, STAT [facility] ondansetron (ZOFRAN (PF)) injection 4 mg 2023-07 01:00: 00 05-18 01:21 :00 No 4mg 4 mg, Slow IV Push, ONCE, 1 dose, On 05/17/24 at 1900, [facility] fentanyl PF (SUBLIMAZE (PF)) injection 50 mcg 2023-07 01:00: 00 05-18 01:21 :00 No 50ug 50 mcg, Slow IV Push, ONCE, 1 dose, On 05/17/24 at 1900, STAT [facility] Methocarbam ol 750 MG oral Tablet 2023-07 00:00: 00 Yes [id number] 750mg Q.25D Take 1 tablet (750 mg total) by mouth 4 times daily. Kellee pinedo Suvorexant (Belsomra) 20 MG oral Tablet 2023-07 00:00: 00 Yes [id number] 1{tbl} QD Take 1 tablet by mouth nightly. Kellee pinedo Acetaminoph en-Codeine 300-30 MG oral Tablet 2023-07 00:00: 00 Yes [id number] Kellee pinedo Lorazepam (ATIVAN) 0.5 MG oral Tablet tablet 2023-07 00:00: 00 Yes [id number] .5mg Q.5D Take 1 tablet (0.5 mg total) by mouth 2 times daily as needed for anxiety. Kellee pinedo Sertraline HCl 50 MG oral Tablet 2023-07 00:00: 00 Yes [id number] 50mg QD Take 1 tablet (50 mg total) by mouth daily Take in addition to 100 mg tablet for a total dose of 150 mg daily. Kellee pinedo Sertraline HCl 100 MG oral Tablet 2023-07 00:00: 00 Yes [id number] 100mg Take 1 tablet (100 mg total) by mouth every morning Take in addition to 50 mg tablet for a total dose of 150 mg daily. Kellee pinedo Isosorbide Mononitrate CR 30 MG oral TABLET SR 24 HR 2023-07 00:00: 00 Yes [id number] TAKE THREE TABLETS BY MOUTH ONCE DAILY (90MG DAILY) Kellee pinedo ondansetron (ZOFRAN (PF)) injection 4 mg 2023-07 01:30: 00 05-08 00:31 :00 No 4mg 4 mg, Slow IV Push, ONCE, 1 dose, On Sat05/07/24 at 2030, RO[facility] morpHINE (4 mg/mL) injection 4 mg 2023-07 01:30: 00 05-08 01:20 :00 No 4mg 4 mg, Slow IV Push, ONCE, 1 dose, On Sat05/07/24 at 2030, STAT [facility] ketorolac (TORADOL) injection 15 mg 2023-07 01:30: 00 05-08 00:30 :00 No 15mg 15 mg, Slow IV Push, ONCE, 1 dose, On Sat05/07/24 at 2030, RO[facility]LYN [facility] phenazopyri dine 200 mg tablet 2023-07 00:00: 00 Yes [id number] 200mg Take 1 tablet by mouth in the morning and 1 tablet at noon and 1 tablet in the evening. [facility] Rosuvastati n Calcium 20 MG oral Tablet 2023-07 0 00:00: 00 Yes 20mg QD Take 1 tablet (20 mg total) by mouth daily. Kellee pinedo Metoprolol Succinate 25 MG oral TABLET SR 24 HR 2023-07 0 00:00: 00 Yes [id number] 25mg QD Take 1 tablet (25 mg total) by mouth daily. Kellee pinedo Dicyclomine HCl 20 MG oral Tablet 2023-07 00:00: 00 Yes TAKE 1 TABLET BY MOUTH FOUR TIMES A DAY NEEDED FOR PAIN Kellee pinedo Ondansetron (ZOFRAN) 4 MG oral TABLET DISPERSIBLE 2023-07 00:00: 00 Yes 4mg Q.[id number] 3D Take 1 tablet (4 mg total) by mouth 3 times daily. Kellee pinedo Belsomra 20 MG oral Tablet 2023-07 00:00: 00 05-18 00:00 :00 No [id number] 1{tbl} QD take 1 tablet by mouth every day at night Kellee pinedo Nitrofurant oin (Macrobid *) 100 Mg CAP Nitrofurant oin (Macrobid *) 100 Mg CAP 2023-07 18:32: 00 Yes 100 [facility] Ondansetron Hcl (Zofran *) 4 Mg Tablet Disint Ondansetron Hcl (Zofran *) 4 Mg Tablet Disint 2023-07 18:32: 00 Yes 1 [facility] cefTRIAXone (ROCEPHIN) 1,000 mg in NaCl 0.9% (NS) 100 mL MINI-BAG 2023-07 0 01:15: 00 04-09 01:24 :00 No 1000mg 1,000 mg, IV Piggyback, ONCE, 1 dose, On Sat04/08/24 at 2015, Administer over 30 Minutes, 100 mL, Reason for Anti-Infec tive: Documented Infection, Documented Infection Site: Urine, Duration of Therapy: Once (ED) [facility] fentanyl PF (SUBLIMAZE (PF)) injection 25 mcg 2023-07 00:15: 00 04-09 00:18 :00 No 25ug 25 mcg, Slow IV Push, ONCE, 1 dose, On Sat04/08/24 at 1915, STAT [facility] NaCl 0.9% (NS) bolus infusion 1,000 mL 2023-07 23:45: 00 04-09 01:24 :00 No 1000mL at 999 mL/hr, 1,000 mL, IV Infusion, ONCE, 1 dose, On Sat04/08/24 at 1845, [facility] ondansetron (ZOFRAN (PF)) injection 4 mg 2023-07 23:00: 00 04-08 22:57 :00 No 4mg 4 mg, Slow IV Push, ONCE, 1 dose, On Sat04/08/24 at 1800, [facility] ketorolac (TORADOL) injection 30 mg 2023-07 23:00: 00 04-08 22:57 :00 No 30mg 30 mg, Slow IV Push, ONCE, 1 dose, On Sat04/08/24 at 1800, [facility] sodium chloride (NS) injection 5 mL 2023-07 22:33: 00 Yes 5mL 5 mL, Intravenou s, PRN, Starting on Sat04/08/24 at 1733, Until Discontinu ed, Routine, IV line flushing [facility] ciprofloxac in HCl 500 mg tablet 2023-07 00:00: 00 Yes [id number] 500mg Take 1 tablet by mouth in the morning and 1 tablet in the evening. [facility] Promethazin e HCl (PHENERGAN) 25 MG oral Tablet 9-07 00:00: 00 Yes 25mg Q.[id number] 3D Take 1 tablet (25 mg total) by mouth every 8 hours as needed for nausea. Kellee pinedo Clopidogrel Bisulfate (PLAVIX) 75 MG oral Tablet 02-09 00:00: 00 Yes [id number] 75mg QD take 1 tablet by mouth every day Kellee pinedo Aspirin Low Dose 81 MG oral Tablet Delayed Response 02-09 00:00: 00 Yes [id number] 81mg QD take 1 tablet by mouth every day Kellee pinedo Methylpredn isolone Acetate (Depo-Medro l) 40 mg/ml - Physician Administere d ([id number]) 02-05 13:21: 25 No [id number] 40mg 40 mg, Physician Administer ed, ONCE, 1 dose, On Esperanza 02/06/24 at 1145 Kellee pinedo hydrOXYzine Pamoate 50 MG oral Capsule 02-05 11:06: 49 Yes [id number] 50mg Q.5D Take 1 capsule (50 mg total) by mouth 2 times daily as needed for anxiety. Kellee pinedo Isosorbide Mononitrate CR 60 MG oral TABLET SR 24 HR 02-04 00:00: 00 Yes Kellee pinedo Lorazepam (ATIVAN) 0.5 MG oral Tablet tablet 01-09 00:00: 00 Yes [id number] .5mg Q.5D take 1 tablet by mouth 2 times daily as needed for anxiety Kellee pinedo Aspirin (Aspirin Low Dose) 81 MG oral Tablet Delayed Response 01-05 00:00: 00 Yes [id number] 81mg QD Take 1 tablet (81 mg total) by mouth daily. Kellee pinedo Atorvastati n Calcium 40 MG oral Tablet 01-05 00:00: 00 Yes [id number] 40mg QD Take 1 tablet (40 mg total) by mouth daily. Kellee pinedo Suvorexant (Belsomra) 20 MG oral Tablet 01-05 00:00: 00 Yes [id number] 1{tbl} QD Take 1 tablet by mouth nightly. Kellee pinedo Clopidogrel Bisulfate (PLAVIX) 75 MG oral Tablet 01-05 00:00: 00 Yes [id number] 75mg QD Take 1 tablet (75 mg [...] MG oral Capsule 12-12 09:19: 23 Yes [id number] 50mg Q.5D Take 1 capsule (50 mg total) by mouth 2 times daily as needed for anxiety. Kellee pinedo Lorazepam (ATIVAN) 0.5 MG oral Tablet tablet 12-12 00:00: 00 Yes [id number] .5mg Q.5D Take 1 tablet (0.5 mg total) by mouth 2 times daily as needed for anxiety. Kellee pinedo Aspirin Low Dose 81 MG oral Tablet Delayed Response 12-05 00:00: 00 Yes [id number] 81mg Take 1 tablet (81 mg total) by mouth daily. Kellee pinedo Atorvastati n Calcium 40 MG oral Tablet 12-05 00:00: 00 Yes [id number] 40mg Take 1 tablet (40 mg total) by mouth daily. Kellee pinedo Clopidogrel Bisulfate (PLAVIX) 75 MG oral Tablet 12-05 00:00: 00 Yes [id number] 75mg Take 1 tablet (75 mg total) by mouth daily. Kellee pinedo Mometasone Furo-Formot camelia Fum (Dulera) 200-5 MCG/ACT inhalation Aerosol 12-05 00:00: 00 05-18 00:00 :00 No TWICE DAILY Kellee pinedo Vitamin D, Ergocalcife rol, 1.25 MG (06806 UT) oral Capsule 12-04 00:00: 00 Yes [id number] Q1W Take 1 capsule (50,000 units total) by mouth once a week. Kellee pinedo Ferrous Sulfate 325 (65 Fe) MG oral Tablet 12-04 00:00: 00 Yes [id number] 325mg QD Take 1 tablet (325 mg total) by mouth daily (with breakfast) . Kellee pinedo Mirtazapine 45 MG oral Tablet 12-02 10:49: 07 12-02 00:00 :00 No [id number] 45mg Take 1 tablet (45 mg total) by mouth nightly. Kellee pinedo hydrOXYzine Pamoate 50 MG oral Capsule 12-02 10:49: 04 Yes [id number] 50mg Q.5D Take 1 capsule (50 mg total) by mouth 2 times daily as needed for anxiety. Kellee pinedo Ascorbic Acid 500 MG oral Tablet 12-02 10:48: 55 12-02 00:00 :00 No 50mg Take 50 mg by mouth. Kellee pinedo Suvorexant (Belsomra) 20 MG oral Tablet 12-02 00:00: 00 Yes [id number] 1{tbl} Take 1 tablet by mouth nightly. Kellee pinedo Lorazepam 1 MG oral Tablet 12-02 00:00: 00 12-12 00:00 :00 No [id number] 1mg Q.5D Take 1 tablet (1 mg total) by mouth 2 times daily as needed for anxiety. Kellee pinedo Doxepin HCl 3 MG oral Tablet 11-27 00:00: 00 05-18 00:00 :00 No [id number] 1{tbl} QD TAKE 1 TABLET BY MOUTH EVERY DAY AT NIGHT Kellee pinedo Aripiprazol e 5 MG oral Tablet 11-27 00:00: 00 05-18 00:00 :00 No [id number] 5mg QD TAKE 1 TABLET (5 MG TOTAL) BY MOUTH DAILY. Kellee pinedo Mirtazapine 45 MG oral Tablet 10-28 13:20: 59 Yes [id number] 45mg Take 1 tablet (45 mg total) by mouth nightly. Kellee pinedo Ascorbic Acid 500 MG oral Tablet 10-28 13:20: 47 Yes 50mg Take 50 mg by mouth. Kellee pinedo hydrOXYzine Pamoate 50 MG oral Capsule 10-28 13:20: 47 10-28 00:00 :00 No [id number] 50mg Q.5D Take 1 capsule (50 mg total) by mouth every 4 to 6 hours as needed. Kellee pinedo Sertraline HCl 150 MG oral Capsule 10-28 13:20: 03 10-28 00:00 :00 No 150mg Take 150 mg by mouth daily. Kellee pinedo Doxepin HCl 3 MG oral Tablet 10-28 00:00: 00 Yes [id number] 1{tbl} Take 1 tablet by mouth nightly. Kellee pinedo Aripiprazol e 5 MG oral Tablet 10-28 00:00: 00 Yes [id number] 5mg Take 1 tablet (5 mg total) by mouth daily. Kellee pinedo Suvorexant 10 MG oral Tablet 10-28 00:00: 00 12-02 00:00 :00 No [id number] 1{tbl} Take 1 tablet by mouth nightly. Kellee pinedo Sertraline HCl 50 MG oral Tablet 10-26 00:00: 00 Yes [id number] Kellee pinedo HYDROcodone -acetaminop hen (NORCO) 10-325 mg tablet 1 tablet 10-10 06:15: 00 10-10 05:25 :00 No 1{tbl} 1 tablet, Oral, ONCE NOW, 1 dose, On Sat10/11/23 at 0115, [facility] iopamidol (ISOVUE 370-500 mL) injection 100 mL 10-10 05:00: 00 10-10 05:00 :00 No [id number] 100mL 100 mL, Intravenou s, ONCE, 1 dose, On Sat10/11/23 at 0000, Routine [facility] ketorolac (TORADOL) injection 30 mg 10-10 04:30: 00 10-10 03:29 :00 No 30mg 30 mg, Slow IV Push, ONCE, 1 dose, On [place] 10/10/23 at 2330, Routine [facility] NaCl 0.9% (NS) IV infusion 1,000 mL 10-10 04:15: 00 10-10 05:18 :00 No 1000mL at 999 mL/hr, Intravenou s, ONCE, 1 dose, On [place] 10/10/23 at 2315, Routine [facility] ondansetron (ZOFRAN (PF)) injection 4 mg 10-10 04:00: 00 10-10 03:54 :00 No 4mg 4 mg, Slow IV Push, ONCE, 1 dose, On [place] 10/10/23 at 2300, [facility] morpHINE (4 mg/mL) injection 4 mg 10-10 04:00: 00 10-10 03:54 :00 No 4mg 4 mg, Slow IV Push, ONCE, 1 dose, On [place] 10/10/23 at 2300, STAT [facility] traMADoL (ULTRAM) 50 mg tablet 10-10 00:00: 00 Yes [id number] 50mg Take 1 tablet by mouth every 6 (six) hours as needed for Pain (scale 7-10). Indication s: acute pain [facility] ondansetron (ZOFRAN) 4 mg tablet 10-10 00:00: 00 Yes [id number] 4mg Take 1 tablet by mouth every 8 (eight) hours as needed for Nausea and Vomiting (N/V). [facility] ketorolac 10 mg tablet 10-10 00:00: 00 Yes [id number] 10mg Take 1 tablet by mouth every 6 (six) hours as needed for Pain (scale 7-10). [facility] phenazopyri dine 200 mg tablet 405 00:00: 00 Yes [id number] 200mg Take 1 tablet by mouth in the morning and 1 tablet at noon and 1 tablet in the evening. [facility] Sertraline HCl 100 MG oral Tablet 4-04 00:00: 00 Yes [id number] 100mg Take 1 tablet (100 mg total) by mouth every morning. Kellee pinedo acetaminoph en (TYLENOL) tablet 975 mg 2022-07 04:15: 00 07-02 03:11 :00 No 975mg 975 mg, Oral, ONCE, 1 dose, On Sat07/01/23 at 2215[facility]cl[facility] (BENTYL) tablet 20 mg 2022-07 03:15: 00 07-02 03:11 :00 No 20mg 20 mg, Oral, ONCE, 1 dose, On Sat07/01/23 at 2115, [facility] ketorolac (TORADOL) injection 30 mg 2022-07 03:15: 00 07-02 02:32 :00 No 30mg 30 mg, Slow IV Push, ONCE, 1 dose, On Sat07/01/23 at 2115, Routine [facility] ondansetron (ZOFRAN (PF)) injection 4 mg 2022-07 03:00: 00 07-02 02:03 :00 No 4mg 4 mg, Slow IV Push, ONCE, 1 dose, On Sat07/01/23 at 2100, [facility] NaCl 0.9% (NS) bolus infusion 1,000 mL 2022-07 03:00: 00 07-02 04:10 :00 No 1000mL at 999 mL/hr, 1,000 mL, IV Infusion, ONCE, 1 dose, On Sat07/01/23 at 2100, STAT [facility] dicyclomine 20 mg tablet 2022-07 00:00: 00 Yes [id number] 20mg Take 1 tablet by mouth 4 (four) times daily. [facility] ondansetron 4 mg disintegrat ing tablet 2022-07 00:00: 00 Yes [id number] 4mg Take 1 tablet by mouth every 4 (four) hours as needed for Nausea and Vomiting (N/V). [facility] Alprazolam (Alprazolam *) 1 Mg TAB Alprazolam (Alprazolam *) 1 Mg TAB 2022-07 12:08: 00 06-14 00:00 :00 No 1 [facility] Trazodone Hcl (Desyrel 100 Mg*) 100 Mg TAB Trazodone Hcl (Desyrel 100 Mg*) 100 Mg TAB 2022-07 12:07: 00 06-06 12:08 :00 No 1 [facility] Aspirin (Aspirin Ec) 81 Mg Tablet Aspirin (Aspirin Ec) 81 Mg Tablet 2022-07 11:55: 00 07-07 00:00 :00 No 81 [facility] Alprazolam (Xanax 2 Mg*) 2 Mg TAB Alprazolam (Xanax 2 Mg*) 2 Mg TAB 2022-07 11:09: 40 06-06 12:08 :00 No 2 [facility] Trazodone Hcl (Desyrel 300 Mg*) 300 Mg TAB Trazodone Hcl (Desyrel 300 Mg*) 300 Mg TAB 2022-07 11:09: 39 05-13 15:45 :00 No 300 [facility] Alprazolam 1 MG oral Tablet 2022-07 00:00: 00 12-12 00:00 :00 No [id number] 2mg Take 2 tablets (2 mg total) by mouth 2 times daily. Kellee pinedo Pantoprazol e * (Protonix Ec *) 20 Mg Tablet Pantoprazol e * (Protonix Ec *) 20 Mg Tablet 2022-07 15:44: 00 06-05 00:28 :00 No 20 [facility] Sucralfate (Carafate *) 1 Gm TAB Sucralfate (Carafate *) 1 Gm TAB 2022-07 15:44: 00 06-05 00:28 :00 No 1 [facility] Ciprofloxac in Hcl (Cipro *) 500 Mg TAB Ciprofloxac in Hcl (Cipro *) 500 Mg TAB 2022-07 15:44: 00 05-16 00:00 :00 No 500 [facility] Pantoprazol e Sodium 20 MG oral Tablet Delayed Response 2022-07 00:00: 00 12-02 00:00 :00 No Take by mouth. Kellee pinedo ketorolac (TORADOL) injection 15 mg 2022-07 01:00: 00 05-10 00:09 :00 No 15mg 15 mg, Slow IV Push, ONCE, 1 dose, On Sat05/09/23 at 2000, [facility] proCHLORper azine (COMPAZINE) injection 5 mg 2022-07 23:30: 00 05-09 22:48 :00 No 5mg 5 mg, Slow IV Push, ONCE, 1 dose, On Sat05/09/23 at 1830, [facility] diphenhydrA MINE (BENADRYL) injection 25 mg 2022-07 22:45: 00 05-09 22:48 :00 No 25mg 25 mg, Slow IV Push, ONCE, 1 dose, On Sat05/09/23 at 1745, STAT [facility] HYDROcodone -acetaminop hen (NORCO) 10-325 mg tablet 1 tablet 2022-07 02:00: 00 05-01 01:04 :00 No 1{tbl} 1 tablet, Oral, ONCE, 1 dose, On Sat04/30/23 at 2100, Routine [facility] iopamidol (ISOVUE 370-500 mL) injection 100 mL 2022-07 00:45: 00 05-01 00:45 :00 No [id number] 100mL 100 mL, Intravenou s, ONCE, 1 dose, On Sat04/30/23 at 1945, Routine [facility] NaCl 0.9% (NS) bolus infusion 1,000 mL 2022-07 00:00: 00 05-01 00:45 :00 No 1000mL at 999 mL/hr, 1,000 mL, IV Piggyback, ONCE, 1 dose, On Sat04/30/23 at 1900, STAT [facility] proCHLORper azine (COMPAZINE) injection 5 mg 2022-07 23:45: 04-30 23:09 :00 No 5mg 5 mg, Slow IV Push, ONCE, 1 dose, On Sat04/30/23 at 1845, [facility] diphenhydrA MINE (BENADRYL) injection 25 mg 2022-07 23:00: 00 04-30 23:09 :00 No 25mg 25 mg, Slow IV Push, ONCE, 1 dose, On Sat04/30/23 at 1800, [facility] dicyclomine 20 mg tablet 2022-07 00:00: 00 07-01 00:00 :00 No [id number] 20mg Take 1 tablet by mouth 4 (four) times daily. [facility] acetaminoph en (TYLENOL) tablet 1,000 mg 2022-07 02:45: 00 04-17 02:43 :00 No 1000mg 1,000 mg, Oral, ONCE, 1 dose, On Sat04/16/23 at 2145, [facility] ondansetron (ZOFRAN (PF)) injection 4 mg 2022-07 0 03:15: 00 04-09 02:13 :00 No 4mg 4 mg, Slow IV Push, ONCE, 1 dose, On Sat04/08/23 at 2215, [facility] dicyclomine (BENTYL) tablet 20 mg 2022-07 0- 03:15: 00 04-09 02:16 :00 No 20mg 20 mg, Oral, ONCE, 1 dose, On 04/08/23 at 2215, Routine [facility] ondansetron (ZOFRAN (PF)) injection 4 mg 2022-07 23:45: 00 04-08 23:16 :00 No 4mg 4 mg, Slow IV Push, ONCE, 1 dose, On Sat04/08/23 at 1845, [facility] morpHINE (2 mg/mL) injection 4 mg 2022-07 23:45: 00 04-08 23:45 :00 No 4mg 4 mg, Slow IV Push, ONCE, 1 dose, On Sat04/08/23 at 1845, STAT [facility] ondansetron 4 mg disintegrat ing tablet 2022-07 00:00: 00 07-01 00:00 :00 No [id number] 4mg Take 1 tablet by mouth every 8 (eight) hours as needed for Nausea and Vomiting (N/V). [facility] dicyclomine 20 mg tablet 2022-07 00:00: 00 04-30 00:00 :00 No [id number] 20mg Take 1 tablet by mouth 4 (four) times daily. [facility] acetaminoph en (TYLENOL) tablet 1,000 mg 03-10 04:30: 00 03-10 04:29 :00 No 1000mg 1,000 mg, Oral, ONCE, 1 dose, On 03/09/23 at 2330, [facility] iopamidol (ISOVUE 370-500 mL) injection 85 mL 03-10 04:30: 00 03-10 04:30 :00 No [id number] 85mL 85 mL, Intravenou s, ONCE, 1 dose, On 03/09/23 at 2330, Routine [facility] FENTanyl PF (SUBLIMAZE (PF)) injection 75 mcg 03-10 04:00: 00 03-10 02:58 :00 No 75ug 75 mcg, Slow IV Push, ONCE, 1 dose, On 03/09/23 at 2300, STAT [facility] NaCl 0.9% (NS) IV infusion 1,000 mL 03-10 03:00: 00 Yes 1000mL at 20 mL/hr, IV Infusion, CONTINUOUS , Starting on 03/09/23 at 2200, Until Discontinu ed, Routine [facility] ondansetron (ZOFRAN (PF)) injection 4 mg 03-10 02:00: 00 03-10 02:01 :00 No 4mg 4 mg, Slow IV Push, ONCE, 1 dose, On 03/09/23 at 2100, [facility] morpHINE (4 mg/mL) injection 4 mg 03-10 02:00: 00 03-10 02:01 :00 No 4mg 4 mg, Slow IV Push, ONCE, 1 dose, On 03/09/23 at 2100, STAT [facility] polyethylen e glycol 3350 (MIRALAX) 17 gram powder 03-09 00:00: 00 Yes [id number] 1{packe t} Take 1 Packet by mouth once daily as needed for Constipati on. [facility] Simethicone 125 mg 03-09 00:00: 00 Yes [id number] 125mg Take 1 capsule by mouth after meals and at bedtime as needed for Gas. [facility] iopamidol (ISOVUE 370-500 mL) injection 100 mL 03-02 06:15: 00 03-02 06:15 :00 No [id number] 100mL 100 mL, Intravenou s, ONCE, 1 dose, On 03/02/23 at 0115, Routine [facility] NaCl 0.9% (NS) IV infusion 1,000 mL 03-02 05:15: 00 Yes 1000mL at 999 mL/hr, Intravenou s, CONTINUOUS , Starting on 03/02/23 at 0015, Until Discontinu ed, Routine [facility] ketorolac (TORADOL) injection 30 mg 03-02 05:15: 00 03-02 04:20 :00 No 30mg 30 mg, Slow IV Push, ONCE, 1 dose, On 03/02/23 at 0015, Routine [facility] ondansetron (ZOFRAN (PF)) injection 4 mg 03-02 05:00: 00 03-02 05:24 :00 No 4mg 4 mg, Slow IV Push, ONCE, 1 dose, On 03/02/23 at 0000, [facility] morpHINE (4 mg/mL) injection 4 mg 03-02 05:00: 00 03-02 05:24 :00 No 4mg 4 mg, Slow IV Push, ONCE, 1 dose, On 03/02/23 at 0000, STAT [facility] ondansetron (ZOFRAN (PF)) injection 4 mg 03-02 04:15: 00 03-02 04:21 :00 No 4mg 4 mg, Slow IV Push, ONCE, 1 dose, On Sat03/01/23 at 2315, [facility] Ondansetron HCl 4 MG oral Tablet 03-02 00:00: 00 05-18 00:00 :00 No [id number] 4mg Q.[id number] 3D Take 1 tablet (4 mg total) by mouth every 8 hours as needed. Kellee pinedo dicyclomine 20 mg tablet 03-02 00:00: 00 04-30 00:00 :00 No [id number] 20mg Take 1 tablet by mouth every 6 (six) hours as needed for Abdominal pain. [facility] metoclopram tracy HCl (REGLAN) injection 10 mg 02-18 06:45: 00 02-18 06:43 :00 No 10mg 10 mg, Slow IV Push, ONCE, 1 dose, On Sat02/18/23 at 0145, [facility] morpHINE (4 mg/mL) injection 4 mg 02-18 05:30: 00 02-18 05:28 :00 No 4mg 4 mg, Slow IV Push, ONCE, 1 dose, On Sat02/18/23 at 0030, STAT [facility] ondansetron (ZOFRAN (PF)) injection 4 mg 02-18 05:30: 00 02-18 05:28 :00 No 4mg 4 mg, Slow IV Push, ONCE, 1 dose, On Sat02/18/23 at 0030, [facility] NaCl 0.9% (NS) bolus infusion 1,000 mL 02-18 05:30: 00 02-18 05:15 :00 No 1000mL at 999 mL/hr, 1,000 mL, IV Infusion, ONCE, 1 dose, On Sat02/18/23 at 0030, STAT [facility] proMETHazin e (PHENERGAN) 25 mg in NaCl 0.9% (NS) 50 mL IV piggyback 02-18 04:30: 00 02-18 04:28 :00 No 25mg 25 mg, IV Piggyback, ONCE, 1 dose, On Sat02/17/23 at 2330, [facility] proMETHazin e 25 mg tablet 02-18 00:00: 00 Yes [id number] 25mg Take 1 tablet by mouth every 6 (six) hours as needed for Nausea and Vomiting (N/V). [facility] escitalopra m oxalate (LEXAPRO) 5 mg tablet 02-17 16:23: 24 Yes 10mg Take 2 tablets by mouth at bedtime. [facility] topiramate (TOPAMAX) 200 mg tablet 02-17 16:23: 24 Yes 200mg Take 1 tablet by mouth every evening. [facility] bupropion HCl (WELLBUTRIN ORAL) 02-17 16:23: 24 Yes 150mg Take 150 mg by mouth every morning. [facility] OLANZapine (ZYPREXA) 15 mg tablet 02-17 16:23: 24 Yes 15mg Take 1 tablet by mouth every evening. [facility] ALPRAZOLAM ORAL 02-17 16:23: 24 Yes 2mg Take 2 mg by mouth in the morning and 2 mg in the evening. [facility] melatonin 10 mg Tab 02-17 16:23: 24 Yes 1{tbl} Take 1 tablet by mouth at bedtime. [facility] trazodone HCl (TRAZODONE ORAL) 02-17 16:23: 24 Yes 400mg Take 400 mg by mouth at bedtime. [facility] lactated ringers IV infusion 1,000 mL 02-17 02:15: 00 02-17 22:14 :00 No 1000mL at 100 mL/hr, 1,000 mL, IV Infusion, CONTINUOUS , Starting on 02/16/23 at 2115, Until 02/17/23 at 1714, Routine [facility] traZODone (DESYREL) tablet 400 mg 02-17 02:00: 00 Yes 400mg 400 mg, Oral, QHS, First dose on 02/16/23 at 2100, Until Discontinu ed [facility] melatonin (MELATIN) tablet 9 mg 02-17 02:00: 00 Yes 9mg 9 mg, Oral, QHS, First dose on 02/16/23 at 2100, Until Discontinu ed [facility] morpHINE (2 mg/mL) injection 2 mg 02-17 01:07: 50 03-01 01:06 :50 No 2mg 2 mg, Slow IV Push, Q4HPRN, Starting on 02/16/23 at 2006, Until [place] 02/28/23 at 2005, Routine, Pain (scale 7-10) [facility] OLANZapine (ZyPREXA) tablet 15 mg 02-16 22:00: 00 Yes 15mg 15 mg, Oral, QPM, First dose on 02/16/23 at 1700, Until Discontinu ed, Routine [facility] buPROPion XL (WELLBUTRIN XL) tablet 150 mg 02-16 14:00: 00 Yes 150mg 150 mg, Oral, DAILY, First dose on 02/16/23 at 0900, Until Discontinu ed [facility] enoxaparin (LOVENOX) injection 40 mg 02-16 14:00: 00 Yes 40mg 40 mg, Subcutaneo us, DAILY, First dose on Sat02/16/23 at 0900, Until Discontinu ed, Routine [facility] methocarbam oL (ROBAXIN) tablet 500 mg 02-16 06:04: 59 Yes 500mg 500 mg, Oral, Q6HPRN, Starting on 02/16/23 at 0104, Until Discontinu ed, Routine, Muscle Spasms [facility] ALPRAZolam (XANAX) tablet 2 mg 02-16 06:03: 54 Yes 2mg 2 mg, Oral, TIDPRN, Starting on 02/16/23 at 0103, Until Discontinu ed, Anxiety [facility] lactated ringers IV infusion 1,000 mL 02-16 03:15: 00 02-16 23:14 :00 No 1000mL at 100 mL/hr, 1,000 mL, IV Infusion, CONTINUOUS , Starting on Sat02/15/23 at 2215, Until 02/16/23 at 1814, Routine [facility] morpHINE (2 mg/mL) injection 2 mg 02-16 03:07: 02 02-17 01:08 :14 No 2mg 2 mg, Slow IV Push, Q4HPRN, Starting on Sat02/15/23 at 2207, Until 02/16/23 at 2008, Routine, Pain (scale 7-10) [facility] traMADoL (ULTRAM) tablet 50 mg 02-16 03:06: 59 02-18 03:05 :59 No 50mg 50 mg, Oral, Q8HPRN, Starting on Sat02/15/23 at 2206, Until Sat02/17/23 at 2205, Routine, Pain (scale 4-6) [facility] acetaminoph en (TYLENOL) tablet 1,000 mg 02-16 03:06: 50 Yes 1000mg 1,000 mg, Oral, Q6HPRN, Starting on Sat02/15/23 at 2206, Until Discontinu ed, Routine, Pain (scale 1-3), Temp > 38 C [facility] ALPRAZolam (XANAX) 1 mg tablet 02-16 01:09: 19 02-15 00:00 :00 No 1mg Take 1 tablet by mouth in the morning and 1 tablet in the evening. [facility] iopamidol (ISOVUE 370-500 mL) injection 80 mL 02-16 00:30: 00 02-16 00:30 :00 No [id number] 80mL 80 mL, Intravenou s, ONCE, 1 dose, On Sat02/15/23 at 1930, Routine [facility] lactated ringers IV infusion 1,000 mL 02-16 00:00: 00 02-16 03:07 :30 No [id number] 1000mL at 500 mL/hr, 1,000 mL, IV Infusion, CONTINUOUS , Starting on Sat02/15/23 at 1900, Until Sat02/15/23 at 2207, [facility] FENTanyl PF (SUBLIMAZE (PF)) injection 75 mcg 02-15 23:45: 00 02-15 23:13 :00 No [id number] 75ug 75 mcg, Slow IV Push, ONCE, 1 dose, On Sat02/15/23 at 1845, Routine [facility] dicyclomine (BENTYL) injection 20 mg 02-15 22:15: 00 02-15 21:46 :00 No [id number] 20mg 20 mg, Intramuscu lar, ONCE NOW, 1 dose, On Sat02/15/23 at 1715, Routine [facility] LORazepam (ATIVAN) injection 1 mg 02-15 21:45: 00 02-15 21:46 :00 No [id number] 1mg 1 mg, Slow IV Push, ONCE, 1 dose, On Sat02/15/23 at 1645, STAT [facility] ondansetron (ZOFRAN (PF)) injection 4 mg 02-15 21:45: 00 02-15 21:46 :00 No [id number] 4mg 4 mg, Slow IV Push, ONCE, 1 dose, On Sat02/15/23 at 1645, [facility] HYDROcodone -acetaminop hen (NORCO) 10-325 mg tablet 1 tablet 02-15 20:15: 00 02-15 19:52 :00 No [id number] 1{tbl} 1 tablet, Oral, ONCE, 1 dose, On Sat02/15/23 at 1515, Routine [facility] Melatonin 1 mg tablet 02-15 20:08: 23 02-15 00:00 :00 No 10mg Take 10 tablets by mouth every evening. [facility] trazodone HCl (DESYREL ORAL) 02-15 20:06: 33 02-15 00:00 :00 No 200mg Take 200 mg by mouth every evening. [facility] OLANZapine (ZYPREXA) 2.5 mg tablet 02-15 20:05: 48 02-15 00:00 :00 No 2.5mg Take 1 tablet by mouth in the morning and 1 tablet in the evening. [facility] hydrOXYzine (VISTARIL) 50 mg capsule 02-15 20:03: 04 02-15 00:00 :00 No 50mg Take 1 capsule by mouth every 4 (four) hours as needed for Itching. q 4-6 hours as needed [facility] dicyclomine (BENTYL) tablet 20 mg 02-15 19:30: 00 02-15 19:52 :00 No [id number] 20mg 20 mg, Oral, ONCE, 1 dose, On Sat02/15/23 at 1430, [facility] ibupro[facility] (IBU) tablet 800 mg 02-15 19:30: 00 02-15 19:52 :00 No [id number] 800mg 800 mg, Oral, ONCE, 1 dose, On Sat02/15/23 at 1430, [facility] losartan 50 mg tablet 02-15 13:44: 36 02-15 00:00 :00 No 50mg Take 1 tablet by mouth in the morning. [facility] [place]-3-DHA -EPA-Fish Oil (FISH OIL) 1,000 mg (120 mg-180 mg) Cap 02-15 13:44: 15 02-15 00:00 :00 No 1000mg Take 1,000 mg by mouth daily. [facility] methocarbam oL 750 mg tablet 02-15 13:43: 47 02-15 00:00 :00 No 750mg Take 750 mg by mouth 3 (three) times daily. [facility] FENTanyl PF (SUBLIMAZE (PF)) injection 50 mcg 01-10 00:45: 00 01-09 23:46 :00 No 50ug 50 mcg, Slow IV Push, ONCE, 1 dose, On Sat01/09/22 at 1945, Routine [facility] ketorolac (TORADOL) injection 30 mg 01-09 23:45: 00 01-09 22:48 :00 No 30mg 30 mg, Slow IV Push, ONCE, 1 dose, On Sat01/09/22 at 1845, Routine [facility] aspirin chewable tablet 243 mg 12-14 14:00: 00 Yes 243mg 243 mg, Oral, DAILY, First dose on [place] 12/14/21 at 0900, Until Discontinu ed, Routine [facility] ketorolac (TORADOL) injection 15 mg 12-14 08:15: 00 12-14 07:11 :00 No 15mg 15 mg, Slow IV Push, ONCE, 1 dose, On [place] 12/14/21 at 0315, [facility] morpHINE (4 mg/mL) injection 4 mg 12-14 05:45: 00 12-14 04:52 :00 No 4mg 4 mg, Slow IV Push, ONCE, 1 dose, On [place] 12/14/21 at 0045, STAT [facility] cefTRIAXone (ROCEPHIN) 1,000 mg in NaCl 0.9% (NS) 50 mL MINI-BAG 12-14 05:45: 00 12-14 05:30 :00 No 1000mg 1,000 mg, IV Piggyback, ONCE, 1 dose, On [place] 12/14/21 at 0045, Administer over 30 Minutes, 50 mL
Reas on for Anti-Infec tive: Documented Infection< br>Documen kaushik Infection Site: Urine
D uration of Therapy: Other (see Comments) [facility] NaCl 0.9% (NS) bolus infusion 1,000 mL 12-14 05:45: 00 12-14 07:20 :00 No 1000mL at 999 mL/hr, 1,000 mL, IV Infusion, ONCE, 1 dose, On [place] 12/14/21 at 0045, [facility] ondansetron (ZOFRAN (PF)) injection 4 mg 12-14 04:45: 00 12-14 03:50 :00 No 4mg 4 mg, Slow IV Push, ONCE, 1 dose, On Sat12/13/21 at 2345, [facility] FENTanyl PF (SUBLIMAZE (PF)) injection 50 mcg 12-14 04:45: 00 12-14 03:50 :00 No 50ug 50 mcg, Slow IV Push, ONCE, 1 dose, On Sat12/13/21 at 2345, Routine [facility] ALPRAZolam (XANAX) 1 mg tablet 12-14 02:22: 13 Yes 1mg Take 1 mg by mouth 2 (two) times daily. [facility] naproxen 500 mg tablet 12-14 00:00: 00 02-15 00:00 :00 No [id number] 500mg Take 1 tablet by mouth 2 (two) times daily with meals. [facility] cefpodoxime 200 mg tablet 12-14 00:00: 00 12-22 04:59 :00 No [id number] 200mg Take 1 tablet by mouth 2 (two) times daily for 7 days. [facility] LORazepam (ATIVAN) injection 1 mg 11-12 05:00: 00 11-12 04:01 :00 No 1mg 1 mg, Slow IV Push, ONCE, 1 dose, On 11/12/21 at 0000, STAT [facility] ketorolac (TORADOL) injection 30 mg 11-12 03:30: 00 11-12 02:26 :00 No 30mg 30 mg, Slow IV Push, ONCE, 1 dose, On 11/11/21 at 2230, Routine
natural resources faculty member approving Restricted medication : DEE WANG [facility] nitroglycer in (NITROSTAT) sublingual tablet 0.4 mg 11-12 03:30: 00 11-12 02:26 :00 No .4mg 0.4 mg, Sublingual , ONCE, 1 dose, On 11/11/21 at 2230, [facility] aspirin E.C. (ECOTRIN) tablet 325 mg 11-12 03:30: 00 11-12 02:25 :00 No 325mg 325 mg, Oral, ONCE, 1 dose, On 11/11/21 at 2230, STAT [facility] morpHINE (4 mg/mL) injection 4 mg 11-12 02:30: 00 11-12 01:40 :00 No 4mg 4 mg, Slow IV Push, ONCE, 1 dose, On 11/11/21 at 2130, [facility] ondansetron (ZOFRAN (PF)) injection 4 mg 11-12 02:30: 00 11-12 01:40 :00 No 4mg 4 mg, Slow IV Push, ONCE, 1 dose, On 11/11/21 at 2130, [facility] NaCl 0.9% (NS) bolus infusion 1,000 mL 11-12 02:30: 00 11-12 02:30 :00 No 1000mL at 999 mL/hr, 1,000 mL, IV Infusion, ONCE, 1 dose, On 11/11/21 at 2130, ROSELYN [facility] hydrOXYzine 50 mg tablet -07 00:00: 00 04-08 00:00 :00 No [id number] 50mg Take 1 tablet by mouth every 8 (eight) hours as needed for Anxiety. [facility] ketorolac (TORADOL) injection 30 mg 09-12 05:45: 00 09-12 04:54 :00 No 30mg 30 mg, Slow IV Push, ONCE, 1 dose, On Sat09/11/21 at 2345, Routine
natural resources faculty member approving Restricted medication : DEE WANG [facility] cefTRIAXone (ROCEPHIN) 1,000 mg in NaCl 0.9% (NS) 50 mL MINI-BAG 09-12 03:45: 00 09-12 03:41 :00 No 1000mg 1,000 mg, IV Piggyback, ONCE, 1 dose, On Sat09/11/21 at 2145, Administer over 30 Minutes, 50 mL
Reas on for Anti-Infec tive: Documented Infection< br>Documen kaushik Infection Site: Urine
D uration of Therapy: 7 days [facility] ondansetron (ZOFRAN (PF)) injection 4 mg 09-12 03:15: 00 09-12 02:39 :00 No 4mg 4 mg, Slow IV Push, ONCE, 1 dose, On Sat09/11/21 at 2115, ROSELYN [facility] morpHINE injection 4 mg 09-12 03:15: 00 09-12 02:39 :00 No 4mg 4 mg, Slow IV Push, ONCE, 1 dose, On Sat09/11/21 at 2115, STAT [facility] iopamidol (ISOVUE 370-500 mL) injection 120 mL 09-12 02:45: 00 09-12 03:00 :00 No [id number] 120mL 120 mL, Intravenou s, ONCE, 1 dose, On Sat09/11/21 at 2100, Routine [facility] sodium chloride (NS) injection 5 mL 09-12 01:33: 26 Yes 5mL 5 mL, Intravenou s, PRN, Starting on Sat09/11/21 at 1933, Until Discontinu ed, Routine, IV line flushing [facility] ibuprofen 600 mg tablet 09-11 00:00: 00 02-15 00:00 :00 No [id number] 600mg Take 1 tablet by mouth every 6 (six) hours as needed for Pain (scale 4-6). [facility] cefdinir 300 mg capsule 09-11 00:00: 00 09-19 04:59 :00 No [id number] 300mg Take 1 capsule by mouth 2 (two) times daily for 7 days. [facility] HYDROcodone -acetaminop hen (NORCO) 10-325 mg tablet 1 tablet 08-15 09:00: 00 08-15 07:59 :00 No 1{tbl} 1 tablet, Oral, ONCE, 1 dose, On Sat08/15/21 at 0300, Routine [facility] FENTanyl PF (SUBLIMAZE (PF)) injection 75 mcg 08-15 07:30: 00 08-15 06:42 :00 No 75ug 75 mcg, Intramuscu lar, ONCE, 1 dose, On Sat08/15/21 at 0130, Routine [facility] methocarbam oL (ROBAXIN) 500 mg tablet 08-15 00:00: 00 Yes [id number] 500mg Take 1 tablet by mouth every 6 (six) hours as needed for Pain (scale 7-10) (MUSCLE SPASM). [facility] traMADoL (ULTRAM) 50 mg tablet 08-15 00:00: 00 Yes [id number] 50mg Take 1 tablet by mouth every 6 (six) hours as needed for Pain (scale 7-10). Indication s: acute pain [facility] Nitrofurant oin&Nit. Macrocryst (MACROBID) 100 mg capsule 08-15 00:00: 00 02-15 00:00 :00 No [id number] 100mg Take 1 capsule by mouth 2 (two) times daily. [facility] morpHINE injection 4 mg 2020-07 08:30: 00 05-28 07:50 :00 No 4mg 4 mg, Slow IV Push, ONCE, 1 dose, On 05/28/21 at 0230, ROSELYN [facility] maalox:diph enhydrAMINE :lidocaine 2 % viscous 1:1:1 ([facility]) oral suspension 15 mL 2020-07 08:00: 00 05-28 07:04 :00 No 15mL 15 mL, Oral, ONCE, 1 dose, On 05/28/21 at 0200, Routine [facility] FENTanyl PF (SUBLIMAZE (PF)) injection 50 mcg 2020-07 07:00: 00 05-28 06:02 :00 No 50ug 50 mcg, Slow IV Push, ONCE, 1 dose, On 05/28/21 at 0100, STAT [facility] famotidine (PEPCID (PF)) injection 20 mg 2020-07 07:00: 00 05-28 06:01 :00 No 20mg 20 mg, Slow IV Push, ONCE, 1 dose, On 05/28/21 at 0100, ROSELYN [facility] famotidine 20 mg tablet 2020-07 00:00: 00 06-13 05:59 :00 No [id number] 20mg Take 1 tablet by mouth 2 (two) times daily for 15 days. [facility] escitalopra m oxalate (LEXAPRO) tablet 10 mg 2020-07 02:00: 00 Yes 10mg 10 mg, Oral, QHS, First dose on 04/08/21 at 2100, Until Discontinu ed, Routine [facility] aspirin 81 mg chewable tablet 2020-07 0 00:00: 00 05-10 04:59 :00 No [id number] 81mg Take 1 tablet by mouth daily for 30 days. [facility] traZODone (DESYREL) tablet 200 mg 2020-07 22:00: 00 Yes 200mg 200 mg, Oral, QPM, First dose on 04/08/21 at 1700, Until Discontinu ed [facility] topiramate (TOPAMAX) tablet 200 mg 2020-07 22:00: 00 Yes 200mg 200 mg, Oral, QPM, First dose on 04/08/21 at 1700, Until Discontinu ed, Routine
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 [facility] [place]-3-DHA -EPA-Fish Oil (FISH OIL) 1,000 mg (120 mg-180 mg) Cap 2020-07 17:45: 33 Yes 1000mg Take 1,000 mg by mouth daily. [facility] hydrOXYzine (VISTARIL) 50 mg capsule 2020-07 17:45: 33 Yes 50mg Take 50 mg by mouth every 4 (four) hours as needed for Itching. q 4-6 hours as needed [facility] losartan 50 mg tablet 2020-07 17:45: 33 Yes 50mg Take 50 mg by mouth daily. [facility] trazodone HCl (DESYREL ORAL) 2020-07 17:45: 33 Yes 200mg Take 200 mg by mouth every evening. [facility] escitalopra m oxalate (LEXAPRO) 5 mg tablet 2020-07 17:45: 33 Yes 10mg Take 10 mg by mouth at bedtime. [facility] Melatonin 1 mg tablet 2020-07 17:45: 33 Yes 10mg Take 10 mg by mouth every evening. [facility] topiramate (TOPAMAX) 200 mg tablet 2020-07 17:45: 33 Yes 200mg Take 200 mg by mouth every evening. [facility] bupropion HCl (WELLBUTRIN ORAL) 2020-07 17:45: 33 Yes 150mg Take 150 mg by mouth every morning. [facility] OLANZapine (ZYPREXA) 15 mg tablet 2020-07 17:45: 33 Yes 15mg Take 15 mg by mouth every evening. [facility] OLANZapine (ZYPREXA) 2.5 mg tablet 2020-07 17:45: 33 Yes 2.5mg Take 2.5 mg by mouth 2 (two) times daily. [facility] furosemide (LASIX) injection 20 mg 2020-07 14:30: 00 Yes 20mg 20 mg, Slow IV Push, Q12H, First dose on 04/08/21 at 0930, Until Discontinu ed, Routine [facility] losartan (COZAAR) tablet 50 mg 2020-07 14:00: 00 Yes 50mg 50 mg, Oral, DAILY, First dose on 04/08/21 at 0900, Until Discontinu ed, Routine [facility] buPROPion XL (WELLBUTRIN XL) tablet 150 mg 2020-07 14:00: 00 Yes 150mg 150 mg, Oral, DAILY, First dose on 04/08/21 at 0900, Until Discontinu ed [facility] aspirin chewable tablet 81 mg 2020-07 14:00: 00 Yes 81mg 81 mg, Oral, DAILY, First dose on 04/08/21 at 0900, Until Discontinu ed, Routine [facility] enoxaparin (LOVENOX) injection 40 mg 2020-07 14:00: 00 Yes 40mg 40 mg, Subcutaneo us, DAILY, First dose on 04/08/21 at 0900, Until Discontinu ed, Routine [facility] OLANZapine (ZyPREXA) tablet 2.5 mg 2020-07 13:00: 00 Yes 2.5mg 2.5 mg, Oral, BID, First dose on Sat04/08/21 at 0800, Until Discontinu ed, Routine [facility] methocarbam oL (ROBAXIN) tablet 750 mg 2020-07 13:00: 00 Yes 750mg 750 mg, Oral, TID, First dose on Sat04/08/21 at 0800, Until Discontinu ed, Routine [facility] LORazepam (ATIVAN) injection 0.5 mg 2020-07 04:07: 43 Yes .5mg 0.5 mg, Slow IV Push, PRN, 2 doses, Starting on Sat04/07/21 at 2307, Until Discontinu ed, Routine, Anxiety [facility] hydrOXYzine (ATARAX) tablet 50 mg 2020-07 02:51: 23 Yes 50mg 50 mg, Oral, Q4HPRN, Starting on Sat04/07/21 at 2151, Until Discontinu ed, Itching [facility] LORazepam (ATIVAN) tablet 0.5 mg 2020-07 02:05: 29 Yes .5mg 0.5 mg, Oral, PRN, 2 doses, Starting on Sat04/07/21 at 2105, Until Discontinu ed, Routine, Anxiety [facility] morpHINE injection 4 mg 2020-07 00:00: 00 04-07 22:58 :00 No 4mg 4 mg, Slow IV Push, ONCE, 1 dose, On Sat04/07/21 at 1900, STAT [facility] ondansetron (ZOFRAN (PF)) injection 4 mg 2020-07 0 00:00: 00 04-07 22:56 :00 No 4mg 4 mg, Slow IV Push, ONCE, 1 dose, On Sat04/07/21 at 1900, ROSELYN [facility] morpHINE injection 4 mg 2020-07 23:58: 03 04-08 23:57 :03 No 4mg 4 mg, Slow IV Push, Q4HPRN, Starting on Sat04/07/21 at 1858, Until 04/08/21 at 1857, Routine, Pain (scale 7-10) [facility] HYDROcodone -acetaminop hen (NORCO 5) 5-325 mg tablet 1 tablet 2020-07 23:58: 00 04-09 23:57 :00 No 1{tbl} 1 tablet, Oral, Q6HPRN, Starting on Sat04/07/21 at 1858, Until 04/09/21 at 1857, Routine, Pain (scale 4-6) [facility] acetaminoph en (TYLENOL) tablet 650 mg 2020-07 23:57: 57 Yes 650mg 650 mg, Oral, Q6HPRN, Starting on Sat04/07/21 at 1857, Until Discontinu ed, Routine, Pain (scale 1-3) [facility] aspirin tablet 325 mg 2020-07 23:00: 00 04-07 21:56 :00 No 325mg 325 mg, Oral, ONCE, 1 dose, On Sat04/07/21 at 1800, STAT [facility] nitroglycer in (NITROSTAT) sublingual tablet 0.4 mg 2020-07 21:51: 01 04-07 22:46 :00 No .4mg 0.4 mg, Sublingual , Q5MIN PRN, 3 doses, Starting on Sat04/07/21 at 1651, Until Discontinu ed, ROSELYN, Chest pain [facility] fluconazole (DIFLUCAN) tablet 150 mg 01-12 14:00: 00 Yes 150mg 150 mg, Oral, DAILY, First dose on [place] 01/12/21 at 0900, Until Discontinu ed, ROSELYN
Re ason for Anti-Infec tive: Empiric Therapy for Suspected Infection< br>Empiric Therapy Site: HEENT
D uration of therapy: 72 hours [facility] cefTRIAXone (ROCEPHIN) 1,000 mg in NaCl 0.9% (NS) 50 mL MINI-BAG 01-12 10:15: 00 01-12 09:49 :00 No 1000mg 1,000 mg, IV Piggyback, ONCE, 1 dose, [place] 01/12/21 at 0515, 50 mL
Reas on for Anti-Infec tive: Empiric Therapy for Suspected Infection< br>Empiric Therapy Site: Urine
D uration of therapy: 72 hours [facility] hydrOXYzine (ATARAX) tablet 25 mg 01-12 10:15: 00 01-12 09:18 :00 No 25mg 25 mg, Oral, ONCE, 1 dose, [place] 01/12/21 at 0515, ROSELYN [facility] HYDROcodone -acetaminop hen (NORCO) 10-325 mg tablet 1 tablet 01-12 10:15: 00 01-12 09:18 :00 No 1{tbl} 1 tablet, Oral, ONCE, 1 dose, [place] 01/12/21 at 0515, Routine [facility] maalox:diph enhydrAMINE :lidocaine2 %viscous 1:1:1: suspension (COMPOUNDED ) 01-12 09:30: 00 01-12 08:25 :00 No 15mL 15 mL, Oral, ONCE, 1 dose, [place] 01/12/21 at 0430, Routine [facility] cephALEXin (KEFLEX) 500 mg capsule 01-12 00:00: 00 04-07 00:00 :00 No [id number] 500mg Take 1 capsule by mouth 3 (three) times daily. [facility] HYDROcodone -acetaminop hen (NORCO 5) 5-325 mg tablet 1 tablet 12-11 02:00: 00 12-11 01:29 :00 No 1{tbl} 1 tablet, Oral, ONCE, 1 dose, 12/10/20 at 2100, ROSELYN [facility] LORazepam (ATIVAN) injection 1 mg 12-11 00:30: 00 12-10 23:36 :00 No 1mg 1 mg, Slow IV Push, ONCE, 1 dose, 12/10/20 at 1930, STAT [facility] ketorolac (TORADOL) injection 30 mg 12-11 00:30: 00 12-10 23:36 :00 No 30mg 30 mg, Slow IV Push, ONCE, 1 dose, 12/10/20 at 1930, [facility]
Fa culty member approving Restricted medication : EMERGENCY ROOM, [facility] ondansetron (ZOFRAN (PF)) injection 4 mg 12-10 23:45: 00 12-10 22:46 :00 No 4mg 4 mg, Slow IV Push, ONCE, 1 dose, 12/10/20 at 1845, [facility] NaCl 0.9% (NS) bolus infusion 2,000 mL 12-10 22:45: 00 12-11 01:29 :00 No 2000mL at 999 mL/hr, 2,000 mL, IV Infusion, ONCE, 1 dose, 12/10/20 at 1745, [facility] proMETHazin e 25 mg tablet 12-10 00:00: 00 04-07 00:00 :00 No [id number] 12.5mg Take 0.5 tablets by mouth every 6 (six) hours as needed for N/V unresponsi ve to Ondansetro n. [facility] morpHINE injection 4 mg 12-04 22:30: 00 12-04 21:37 :00 No 4mg 4 mg, Slow IV Push, ONCE, 1 dose, 12/04/20 at 1730, STAT [facility] losartan 50 mg tablet 12-04 22:03: 53 Yes 50mg Take 50 mg by mouth daily. [facility] LORazepam (ATIVAN) tablet 1 mg 12-04 21:45: 00 12-04 20:44 :00 No 1mg 1 mg, Oral, ONCE, 1 dose, 12/04/20 at 1645, [facility] ondansetron (ZOFRAN (PF)) injection 4 mg 12-04 21:15: 00 12-04 20:22 :00 No 4mg 4 mg, Slow IV Push, ONCE, 1 dose, [place] 12/04/20 at 1615, ROSELYN [facility] morpHINE injection 4 mg 12-04 21:15: 00 12-04 20:21 :00 No 4mg 4 mg, Slow IV Push, ONCE, 1 dose, [place] 12/04/20 at 1615, STAT [facility] ALPRAZolam (XANAX) 2 mg tablet 11-04 04:24: 19 11-03 00:00 :00 No 2mg Take 2 mg by mouth at bedtime. [facility] LORazepam (ATIVAN) injection 1 mg 11-04 04:00: 00 11-04 02:57 :00 No 1mg 1 mg, Slow IV Push, ONCE, 1 dose, [facility] 11/03/20 at 2300, STAT [facility] LORazepam (ATIVAN) tablet 1 mg 11-04 04:00: 00 11-04 02:57 :00 No 1mg 1 mg, Oral, ONCE, 1 dose, [facility] 11/03/20 at 2300, ROSELYN [facility] clonazePAM 0.5 mg tablet 11-01 00:00: 00 04-07 00:00 :00 No .5mg Take 0.5 mg by mouth. [facility] SERTraline 100 mg tablet 11-01 00:00: 00 04-07 00:00 :00 No 100mg Take 100 mg by mouth. [facility] busPIRone 10 mg tablet 4 00:00: 00 04-07 00:00 :00 No 10mg Take 10 mg by mouth. [facility] Ciprofloxac in/Dexameth asone (Ciprodex 0.3%-0.1% Otic*) 1 Ea SUSP Ciprofloxac in/Dexameth asone (Ciprodex 0.3%-0.1% Otic*) 1 Ea SUSP 3-15 13:53: 00 09-30 00:00 :00 No [facility] ([facility]U) tablet 800 mg 09-17 16:55: 00 09-17 16:57 :00 No 800mg 800 mg, Oral, ONCE, 1 dose, 09/17/20 at 1100, ROSELYN [facility] benzonatate 100 mg capsule 09-17 00:00: 00 04-07 00:00 :00 No [id number] 100mg Take 1 capsule by mouth 3 (three) times daily as needed for Cough. [facility] amoxicillin 500 mg capsule 09-17 00:00: 00 09-28 04:59 :00 No [id number] 500mg Take 1 capsule by mouth 3 (three) times daily for 10 days. [facility] HYDROcodone -acetaminop hen (NORCO) 10-325 mg tablet 1 tablet 09-07 07:45: 00 09-07 07:09 :00 No 1{tbl} 1 tablet, Oral, ONCE, 1 dose, 09/07/20 at 0145, Routine [facility] ondansetron (ZOFRAN-ODT ) disintegrat ing tablet 4 mg 09-07 07:15: 00 09-07 07:15 :00 No 4mg 4 mg, Oral, ONCE, 1 dose, 09/07/20 at 0130, Routine [facility] ibuprofen 800 mg tablet 09-07 00:00: 00 Yes [id number] 800mg Take 1 tablet by mouth every 8 (eight) hours as needed for Pain (scale 4-6). [facility] ketorolac (TORADOL) injection 30 mg 08-28 10:45: 00 08-28 09:48 :00 No 30mg 30 mg, Slow IV Push, ONCE, 1 dose, 08/28/20 at 0445, Routine
natural resources faculty member approving Restricted medication : OLIVIA GARCIA [facility] ondansetron (ZOFRAN (PF)) injection 4 mg 08-28 10:00: 00 08-28 09:06 :00 No 4mg 4 mg, Slow IV Push, ONCE, 1 dose, 08/28/20 at 0400, ROSELYN [facility] FENTanyl PF (SUBLIMAZE (PF)) injection 50 mcg 08-28 10:00: 00 08-28 09:07 :00 No 50ug 50 mcg, Slow IV Push, ONCE, 1 dose, 08/28/20 at 0400, Routine [facility] maalox:diph enhydrAMINE :lidocaine 2 % viscous 1:1:1 ([facility]) oral suspension 15 mL 08-28 10:00: 00 08-28 09:07 :00 No 15mL 15 mL, Oral, ONCE, 1 dose, 08/28/20 at 0400, Routine [facility] iohexol (OMNIPAQUE 350 BULK-100 mL) injection 120 mL 08-28 09:30: 00 08-28 09:11 :00 No 120mL 120 mL, Intravenou s, ONCE, 1 dose, 08/28/20 at 0330, Routine [facility] dicyclomine 20 mg tablet 08-28 00:00: 00 04-07 00:00 :00 No [id number] 20mg Take 1 tablet by mouth every 6 (six) hours as needed for Abdominal pain. [facility] ondansetron (ZOFRAN) 4 mg tablet 08-28 00:00: 00 09-17 00:00 :00 No [id number] 4mg Take 1 tablet by mouth every 8 (eight) hours as needed for Nausea and Vomiting (N/V). [facility] FENTanyl PF (SUBLIMAZE (PF)) injection 25 mcg 08-14 19:00: 00 08-14 18:09 :00 No 25ug 25 mcg, Slow IV Push, ONCE, 1 dose, 08/14/20 at 1300, STAT [facility] ondansetron (ZOFRAN (PF)) injection 4 mg 08-14 19:00: 08-14 18:10 :00 No 4mg 4 mg, Slow IV Push, ONCE, 1 dose, 08/14/20 at 1300, ROSELYN [facility] ketorolac (TORADOL) injection 15 mg 08-14 19:00: 00 08-14 18:09 :00 No 15mg 15 mg, Slow IV Push, ONCE, 1 dose, 08/14/20 at 1300, RO[facility]N
Fa culty member approving Restricted medication : BEST TAYLOR [facility] piperacilli n-tazobacta m (ZOSYN) 3.375 g in NaCl 0.9% (NS) 100 mL MINI-BAG 08-14 19:00: 08-14 18:38 :00 No 3.375g 3.375 g, IV Piggyback, ONCE, 1 dose, 08/14/20 at 1300, 100 mL
Reas on for Anti-Infec tive: Documented Infection< br>Documen kaushik Infection Site: Urine
D uration of Therapy: Other (see Comments) [facility] NaCl 0.9% (NS) bolus infusion 1,000 mL 08-14 19:00: 08-14 19:00 :00 No 1000mL at 999 mL/hr, 1,000 mL, IV Infusion, ONCE, 1 dose, 08/14/20 at 1300, STAT [facility] guaiFENesin 100 mg/5 mL solution 08-14 00:00: 00 04-07 00:00 :00 No [id number] 100mg Take 5 mL by mouth every 4 (four) hours. [facility] ondansetron 4 mg disintegrat ing tablet 08-14 00:00: 09-17 00:00 :00 No [id number] 4mg Take 1 tablet by mouth every 8 (eight) hours as needed for Nausea and Vomiting (N/V). [facility] ibuprofen 600 mg tablet 08-14 00:00: 09-17 00:00 :00 No [id number] 600mg Take 1 tablet by mouth every 6 (six) hours as needed for Pain (scale 4-6). [facility] amoxicillin -clavulanat e 875-125 mg per tablet 2- 00:00: 00 08-25 05:59 :00 No [id number] 1{tbl} Take 1 tablet by mouth 2 (two) times daily for 10 days. [facility] fluconazole (DIFLUCAN) tablet 150 mg 08-11 15:00: 00 Yes 150mg 150 mg, Oral, DAILY, First dose on [place] 08/11/20 at 0900, Until Discontinu ed, ROSELYN
Re ason for Anti-Infec tive: Documented Infection< br>Documen kaushik Infection Site: Urine
D uration of Therapy: Other (see Comments) [facility] HYDROcodone -acetaminop hen (NORCO) 10-325 mg tablet 1 tablet 08-11 05:30: 00 08-11 05:08 :00 No 1{tbl} 1 tablet, Oral, ONCE NOW, 1 dose, 08/10/20 at 2330, Routine [facility] FENTanyl PF (SUBLIMAZE (PF)) injection 25 mcg 08-11 04:30: 00 08-11 03:19 :00 No 25ug 25 mcg, Slow IV Push, ONCE, 1 dose, 08/10/20 at 2230, STAT [facility] ondansetron (ZOFRAN (PF)) injection 4 mg -04 04:15: 00 08-11 03:19 :00 No 4mg 4 mg, Slow IV Push, ONCE, 1 dose, 08/10/20 at 2215, RO[facility]N [facility] NaCl 0.9% (NS) bolus infusion 1,000 mL 2 01:45: 00 08-11 03:45 :00 No 1000mL at 999 mL/hr, 1,000 mL, IV Infusion, ONCE, 1 dose, 08/10/20 at 1945, STAT [facility] ketorolac (TORADOL) injection 30 mg 08-11 01:45: 00 08-11 02:31 :00 No 30mg 30 mg, Slow IV Push, ONCE, 1 dose, Sat08/10/20 at 1945, [facility] Restricted medication : BEST TAYLOR [facility] traMADoL (ULTRAM) 50 mg tablet 08-10 00:00: 00 09-17 00:00 :00 No [id number] 50mg Take 1 tablet by mouth every 6 (six) hours as needed for Pain (scale 7-10). Indication s: acute pain [facility] ibuprofen 800 mg tablet 08-07 00:00: 00 09-17 00:00 :00 No [id number] 800mg Take 1 tablet by mouth every 8 (eight) hours. [facility] amoxicillin 500 mg capsule 08-07 00:00: 00 09-17 00:00 :00 No [id number] 500mg Take 1 capsule by mouth 3 (three) times daily. [facility] traMADoL 50 mg tablet 08-07 00:00: 00 09-17 00:00 :00 No [id number] 50mg Take 1 tablet by mouth every 6 (six) hours as needed for Pain (scale 4-6). Indication s: acute pain [facility] LORazepam (ATIVAN) tablet 1 mg 2019-07 03:15: 00 07-01 02:21 :00 No 1mg 1 mg, Oral, ONCE, 1 dose, [place] 06/30/20 at 2115, ROSE[place]N [facility] FENTanyl PF (SUBLIMAZE (PF)) injection 50 mcg 2019-07 02:30: 00 07-01 01:39 :00 No 50ug 50 mcg, Slow IV Push, ONCE, 1 dose, [place] 06/30/20 at 2030, Routine [facility] ondansetron (ZOFRAN-ODT ) disintegrat ing tablet 4 mg 2019-07 01:15: 00 07-01 00:52 :00 No 4mg 4 mg, Oral, ONCE, 1 dose, [place] 06/30/20 at 1915, Routine [facility] ketorolac (TORADOL) injection 30 mg 2019-07 01:15: 00 07-01 00:52 :00 No 30mg 30 mg, Slow IV Push, ONCE, 1 dose, [place] 06/30/20 at 1915, [facility] approving Restricted medication : ABDIAS ROBERTSON [facility] albuterol 90 mcg/actuati on inhaler 2019-07 00:00: 04-07 00:00 :00 No [id number] 2{puff} Inhale 2 Puffs every 4 (four) hours as needed for Wheezing or Shortness of Breath. [facility] hydrOXYzine 25 mg tablet 2019-07 00:00: 00 09-17 00:00 :00 No [id number] 25mg Take 1 tablet by mouth every 6 (six) hours as needed for Anxiety. [facility] naproxen sodium (ANAPROX DS) 550 mg tablet 2019-07 00:00: 00 04-07 00:00 :00 No [id number] 550mg Take 1 tablet by mouth 2 (two) times daily with meals. [facility] methylPREDN ISolone (MEDROL, BEBETO,) 4 mg tablets 2019-07 00:00: 00 09-17 00:00 :00 No [id number] Take by mouth SEE-INSTRU CTIONS. follow package directions [facility] methocarbam oL 500 mg tablet 2019-07 00:00: 00 07-04 05:59 :00 No [id number] 500mg Take 1 tablet by mouth 3 (three) times daily for 5 days. [facility] proMETHazin e (PHENERGAN) tablet 25 mg 2019-07 04:45: 00 06-13 03:37 :00 No 25mg 25 mg, Oral, ONCE, 1 dose, 06/12/20 at 2245, RO[place]N [facility] ondansetron (ZOFRAN (PF)) injection 4 mg 2019-07 03:00: 00 06-13 01:59 :00 No 4mg 4 mg, Slow IV Push, ONCE, 1 dose, 06/12/20 at 2100, RO[place]N [facility] ketorolac (TORADOL) injection 15 mg 2019-07 03:00: 00 06-13 01:58 :00 No 15mg 15 mg, Intramuscu lar, ONCE, 1 dose, 06/12/20 at 2100, [facility]
Fa culty member approving Restricted medication : LEEANNE WISE [facility] morpHINE injection 4 mg 2019-07 01:30: 00 06-13 00:41 :00 No 4mg 4 mg, Slow IV Push, ONCE, 1 dose, 06/12/20 at 1930, STAT [facility] ondansetron (ZOFRAN (PF)) injection 4 mg 2019-07 00:45: 00 06-13 00:41 :00 No 4mg 4 mg, Slow IV Push, ONCE, 1 dose, 06/12/20 at 1845, RO[facility]N [facility] NaCl 0.9% (NS) bolus infusion 1,000 mL 2019-07 23:45: 00 06-13 03:54 :00 No 1000mL at 999 mL/hr, 1,000 mL, IV Infusion, ONCE, 1 dose, 06/12/20 at 1745, RO[facility]N [facility] dicyclomine 20 mg tablet 2019-07 00:00: 00 04-07 00:00 :00 No [id number] 20mg Take 1 tablet by mouth 4 (four) times daily as needed for Abdominal pain. [facility] proMETHazin e 25 mg tablet 2019-07 00:00: 00 09-17 00:00 :00 No [id number] 25mg Take 1 tablet by mouth every 6 (six) hours as needed for Nausea and Vomiting (N/V). [facility] famotidine 20 mg tablet 2019-07 00:00: 00 06-27 05:59 :00 No [id number] 20mg Take 1 tablet by mouth at bedtime for 14 days. [facility] haloperidol lactate (HALDOL) injection 2.5 mg 2019-07 01:00: 00 05-16 23:51 :00 No 2.5mg 2.5 mg, Intravenou s, ONCE, 1 dose, [facility] 05/16/20 at 1900, STAT [facility] NaCl 0.9% (NS) bolus infusion 1,000 mL 2019-07 23:45: 00 05-17 00:54 :00 No 1000mL at 999 mL/hr, 1,000 mL, IV Infusion, ONCE, 1 dose, [facility] 05/16/20 at 1745, ROSE[place]N [facility] proMETHazin e (PHENERGAN) 25 mg suppository 2019-07 00:00: 00 Yes [id number] 25mg Insert 1 Suppositor y into rectum every 4 (four) hours as needed for Nausea and Vomiting (N/V). [facility] ondansetron (ZOFRAN (PF)) injection 4 mg 2019-07 07:30: 00 05-15 06:26 :00 No 4mg 4 mg, Slow IV Push, ONCE, 1 dose, 05/15/20 at 0130, ROSE[place]N [facility] iohexol (OMNIPAQUE 350 BULK-100 mL) injection 120 mL 2019-07 07:00: 00 05-15 06:52 :00 No 120mL 120 mL, Intravenou s, ONCE, 1 dose, [place] 05/15/20 at 0100, Routine [facility] ondansetron (ZOFRAN (PF)) injection 4 mg 2019-07 06:30: 00 05-15 05:52 :00 No 4mg 4 mg, Slow IV Push, ONCE, 1 dose, [place] 05/15/20 at 0030, [facility] ALPRAZolam (XANAX) 2 mg tablet 2019-07 05:30: 58 Yes 2mg Take 2 mg by mouth at bedtime. [facility] zolpidem 5 mg tablet 15 00:00: 00 04-07 00:00 :00 No 5mg Take 5 mg by mouth. [facility] Immunizations Ordered Immunization Name Filled Immunization Name Date Status Comments Source Covid-19 Vaccine Moderna (Spikevax), Mrna-lnp, Zackery Protein, Pf Unknown Completed [facility] - External Covid-19 Vaccine Moderna (Spikevax), Mrna-lnp, Zackery Protein, Pf Unknown Completed [facility] - External Covid-19 Vaccine Moderna (Spikevax), Mrna-lnp, Zackery Protein, Pf Unknown Completed [facility] - External Covid-19 Vaccine Moderna (Spikevax), Mrna-lnp, Zackery Protein, Pf Unknown Completed [facility] External Covid-19 Vaccine Moderna (Spikevax), Mrna-lnp, Zackery Protein, Pf Unknown Completed [facility] External Covid-19 Vaccine Moderna (Spikevax), Mrna-lnp, Zackery Protein, Pf Unknown Completed [facility] Vital Signs Vital Name Observation Time Observation Value Comments S ource Body temperature 2024-07-19 07:17:00 36.56 Latanya [facility] Heart rate 2024-07-19 07:14:00 74 /min [facility] Respiratory rate 2024-07-19 07:14:00 27 /min [facility] Oxygen saturation in Arterial blood by Pulse oximetry 2024-07-19 07:14:00 100 /min [facility] Systolic blood pressure 2024-07-19 07:00:00 123 mm[Hg] [facility] Diastolic blood pressure 2024-07-19 07:00:00 93 mm[Hg] [facility] Body height 2024-07-19 04:44:00 157.5 cm [facility] Body weight 2024-07-19 04:44:00 104.327 kg [facility] BMI 2024-07-19 04:44:00 42.07 kg/m2 [facility] Systolic blood pressure 2024-07-04 07:00:00 132 mm[Hg] [facility] Diastolic blood pressure 2024-07-04 07:00:00 98 mm[Hg] [facility] Heart rate 2024-07-04 07:00:00 85 /min [facility] Body temperature 2024-07-04 07:00:00 36.78 Latanya [facility] Respiratory rate 2024-07-04 07:00:00 18 /min [facility] Oxygen saturation in Arterial blood by Pulse oximetry 2024-07-04 07:00:00 94 /min [facility] Body height 2024-07-04 01:53:00 157.5 cm [facility] Body weight 2024-07-04 01:53:00 105.688 kg [facility] BMI 2024-07-04 01:53:00 42.62 kg/m2 [facility] Systolic blood pressure 2024-06-21 08:00:00 180 mm[Hg] [facility] Diastolic blood pressure 2024-06-21 08:00:00 107 mm[Hg] [facility] Heart rate 2024-06-21 08:00:00 89 /min [facility] Body temperature 2024-06-21 08:00:00 37.11 Latanya [facility] Respiratory rate 2024-06-21 08:00:00 22 /min [facility] Body height 2024-06-21 08:00:00 157.5 cm [facility] Body weight 2024-06-21 08:00:00 108.41 kg [facility] BMI 2024-06-21 08:00:00 43.71 kg/m2 [facility] Oxygen saturation in Arterial blood by Pulse oximetry 2024-06-21 08:00:00 100 /min [facility] Heart rate 2024-06-15 06:22:00 87 /min [facility] Body temperature 2024-06-15 06:22:00 37.11 Latanya [facility] Oxygen saturation in Arterial blood by Pulse oximetry 2024-06-15 06:22:00 96 /min [facility] Systolic blood pressure 2024-06-15 06:00:00 137 mm[Hg] [facility] Diastolic blood pressure 2024-06-15 06:00:00 85 mm[Hg] [facility] Respiratory rate 2024-06-15 06:00:00 15 /min [facility] Body height 2024-06-15 03:23:00 157.5 cm [facility] Body weight 2024-06-15 03:23:00 109.997 kg [facility] BMI 2024-06-15 03:23:00 44.35 kg/m2 [facility] Body temperature 2024-06-07 08:35:48 36.89 Latanya [facility] Systolic blood pressure 2024-06-07 08:00:00 129 mm[Hg] [facility] Diastolic blood pressure 2024-06-07 08:00:00 108 mm[Hg] [facility] Heart rate 2024-06-07 08:00:00 69 /min [facility] Respiratory rate 2024-06-07 08:00:00 24 /min [facility] Oxygen saturation in Arterial blood by Pulse oximetry 2024-06-07 08:00:00 97 /min [facility] Body height 2024-06-07 04:02:00 157.5 cm [facility] Body weight 2024-06-07 04:02:00 105.688 kg [facility] BMI 2024-06-07 04:02:00 42.62 kg/m2 [facility] Systolic blood pressure 2024-05-19 19:32:00 130 mm[Hg] [facility] Diastolic blood pressure 2024-05-19 19:32:00 74 mm[Hg] [facility] Heart rate 2024-05-19 19:32:00 84 /min [facility] Respiratory rate 2024-05-19 19:32:00 18 /min [facility] Oxygen saturation in Arterial blood by Pulse oximetry 2024-05-19 19:32:00 99 /min [facility] Body temperature 2024-05-19 17:44:00 36.83 Latanya [facility] Body height 2024-05-19 17:44:00 157.5 cm [facility] Body weight 2024-05-19 17:44:00 108.863 kg [facility] BMI 2024-05-19 17:44:00 43.90 kg/m2 [facility] Systolic blood pressure 2024-05-18 16:21:00 126 mm[Hg] [...] External Heart rate 2024-05-18 04:14:00 111 /min [facility] Body temperature 2024-05-18 04:14:00 37 Latanya [facility] Respiratory rate 2024-05-18 04:14:00 27 /min [facility] Oxygen saturation in Arterial blood by Pulse oximetry 2024-05-18 04:14:00 94 /min [facility] Systolic blood pressure 2024-05-18 04:00:00 141 mm[Hg] [facility] Diastolic blood pressure 2024-05-18 04:00:00 122 mm[Hg] [facility] Body height 2024-05-18 00:33:00 157.5 cm [facility] Body weight 2024-05-18 00:33:00 107.502 kg [facility] BMI 2024-05-18 00:33:00 43.35 kg/m2 [facility] Heart rate 2024-05-08 02:05:00 91 /min [facility] Respiratory rate 2024-05-08 02:05:00 22 /min [facility] Oxygen saturation in Arterial blood by Pulse oximetry 2024-05-08 02:05:00 95 /min [facility] Systolic blood pressure 2024-05-08 02:00:00 140 mm[Hg] [facility] Diastolic blood pressure 2024-05-08 02:00:00 86 mm[Hg] [facility] Body temperature 2024-05-07 23:46:00 36.78 Latanya [facility] Body height 2024-05-07 23:46:00 157.5 cm [facility] Body weight 2024-05-07 23:46:00 107.729 kg [facility] BMI 2024-05-07 23:46:00 43.44 kg/m2 [facility] Height 2024-04-10 16:28:00 157.303559 cm [facility] Weight 2024-04-10 16:28:00 104.812271 kg [facility] BMI (Body Mass Index) 2024-04-10 16:28:00 42.1 kg/m2 [facility] Systolic blood pressure 2024-04-09 01:30:00 134 mm[Hg] [facility] Diastolic blood pressure 2024-04-09 01:30:00 64 mm[Hg] [facility] Heart rate 2024-04-09 01:30:00 102 /min [facility] Body temperature 2024-04-09 01:30:00 36.61 Latanya [facility] Respiratory rate 2024-04-09 01:30:00 17 /min [facility] Oxygen saturation in Arterial blood by Pulse oximetry 2024-04-09 01:30:00 96 /min [facility] Body height 2024-04-08 22:31:00 157.5 cm [facility] Body weight 2024-04-08 22:31:00 104.327 kg [facility] BMI 2024-04-08 22:31:00 42.07 kg/m2 [facility] Body temperature 2023-12-13 14:10:00 36.72 Latanya [facility] Respiratory rate 2023-12-13 14:10:00 15 /min [facility] Body height 2023-12-13 14:10:00 157.5 cm [facility] Body weight 2023-12-13 14:10:00 105.688 kg [facility] BMI 2023-12-13 14:10:00 42.62 kg/m2 [...] Systolic blood pressure 2023-10-11 05:00:00 126 mm[Hg] [facility] Diastolic blood pressure 2023-10-11 05:00:00 87 mm[Hg] [facility] Heart rate 2023-10-11 05:00:00 94 /min [facility] Respiratory rate 2023-10-11 05:00:00 22 /min [facility] Oxygen saturation in Arterial blood by Pulse oximetry 2023-10-11 05:00:00 98 /min [facility] Body temperature 2023-10-11 02:28:00 37.22 Latanya [facility] Body height 2023-10-11 02:28:00 157.5 cm [facility] Body weight 2023-10-11 02:28:00 99.791 kg [facility] BMI 2023-10-11 02:28:00 40.24 kg/m2 [facility] Systolic blood pressure 2023-07-02 04:10:00 147 mm[Hg] [facility] Diastolic blood pressure 2023-07-02 04:10:00 89 mm[Hg] [facility] Heart rate 2023-07-02 04:10:00 73 /min [facility] Respiratory rate 2023-07-02 04:10:00 19 /min [facility] Oxygen saturation in Arterial blood by Pulse oximetry 2023-07-02 04:10:00 98 /min [facility] Body temperature 2023-07-02 01:47:00 36.78 Latanya [facility] Body height 2023-07-02 01:47:00 160 cm [facility] Body weight 2023-07-02 01:47:00 97.659 kg [facility] BMI 2023-07-02 01:47:00 38.14 kg/m2 [facility] Systolic blood pressure 2023-05-10 01:00:00 133 mm[Hg] [facility] Diastolic blood pressure 2023-05-10 01:00:00 81 mm[Hg] [facility] Heart rate 2023-05-10 01:00:00 64 /min [facility] Respiratory rate 2023-05-10 01:00:00 21 /min [facility] Oxygen saturation in Arterial blood by Pulse oximetry 2023-05-10 01:00:00 96 /min [facility] Body temperature 2023-05-09 22:43:00 36.67 Latanya [facility] Body height 2023-05-09 22:43:00 157.5 cm [facility] Body weight 2023-05-09 22:43:00 99.791 kg [facility] BMI 2023-05-09 22:43:00 40.24 kg/m2 [facility] Systolic blood pressure 2023-05-01 01:00:00 107 mm[Hg] [facility] Diastolic blood pressure 2023-05-01 01:00:00 80 mm[Hg] [facility] Heart rate 2023-05-01 01:00:00 80 /min [facility] Body temperature 2023-05-01 01:00:00 37.06 Latanya [facility] Respiratory rate 2023-05-01 01:00:00 16 /min [facility] Oxygen saturation in Arterial blood by Pulse oximetry 2023-05-01 01:00:00 98 /min [facility] Body height 2023-04-30 22:16:00 157.5 cm [facility] Body weight 2023-04-30 22:16:00 95.255 kg [facility] BMI 2023-04-30 22:16:00 38.41 kg/m2 [facility] Systolic blood pressure 2023-04-17 02:00:00 147 mm[Hg] [facility] Diastolic blood pressure 2023-04-17 02:00:00 83 mm[Hg] [facility] Heart rate 2023-04-17 02:00:00 90 /min [facility] Respiratory rate 2023-04-17 02:00:00 18 /min [facility] Oxygen saturation in Arterial blood by Pulse oximetry 2023-04-17 02:00:00 96 /min [facility] Body temperature 2023-04-17 01:33:00 36.78 Latanya [facility] Body height 2023-04-17 01:33:00 157.5 cm [facility] Body weight 2023-04-17 01:33:00 99.791 kg [facility] BMI 2023-04-17 01:33:00 40.24 kg/m2 [facility] Systolic blood pressure 2023-04-09 01:04:48 135 mm[Hg] [facility] Diastolic blood pressure 2023-04-09 01:04:48 84 mm[Hg] [facility] Heart rate 2023-04-09 01:04:48 67 /min [facility] Respiratory rate 2023-04-09 01:04:48 16 /min [facility] Oxygen saturation in Arterial blood by Pulse oximetry 2023-04-09 01:04:48 99 /min [facility] Body temperature 2023-04-08 22:16:00 36.67 Latanya [facility] Body height 2023-04-08 22:16:00 157.5 cm [facility] Body weight 2023-04-08 22:16:00 99.791 kg [facility] BMI 2023-04-08 22:16:00 40.24 kg/m2 [facility] Systolic blood pressure 2023-03-10 05:00:00 156 mm[Hg] [facility] Diastolic blood pressure 2023-03-10 05:00:00 94 mm[Hg] [facility] Heart rate 2023-03-10 05:00:00 75 /min [facility] Respiratory rate 2023-03-10 05:00:00 21 /min [facility] Oxygen saturation in Arterial blood by Pulse oximetry 2023-03-10 05:00:00 97 /min [facility] Body temperature 2023-03-10 01:20:00 36.72 Latanya [facility] Body height 2023-03-10 01:20:00 157.5 cm [facility] Body weight 2023-03-10 01:20:00 100.381 kg [facility] BMI 2023-03-10 01:20:00 40.48 kg/m2 [facility] Systolic blood pressure 2023-03-02 06:00:00 126 mm[Hg] [facility] Diastolic blood pressure 2023-03-02 06:00:00 79 mm[Hg] [facility] Heart rate 2023-03-02 06:00:00 69 /min [facility] Respiratory rate 2023-03-02 06:00:00 23 /min [facility] Oxygen saturation in Arterial blood by Pulse oximetry 2023-03-02 06:00:00 94 /min [facility] Body temperature 2023-03-02 00:34:00 37.28 Latanya [facility] Body height 2023-03-02 00:34:00 157.5 cm [facility] Body weight 2023-03-02 00:34:00 99.791 kg [facility] BMI 2023-03-02 00:34:00 40.24 kg/m2 [facility] Systolic blood pressure 2023-02-18 06:46:00 126 mm[Hg] [facility] Diastolic blood pressure 2023-02-18 06:46:00 77 mm[Hg] [facility] Heart rate 2023-02-18 06:46:00 79 /min [facility] Respiratory rate 2023-02-18 06:46:00 16 /min [facility] Oxygen saturation in Arterial blood by Pulse oximetry 2023-02-18 06:46:00 95 /min [facility] Body temperature 2023-02-18 03:55:00 36.72 Latanya [facility] Body height 2023-02-18 03:55:00 157.5 cm [facility] Body weight 2023-02-18 03:55:00 102.331 kg [facility] BMI 2023-02-18 03:55:00 41.26 kg/m2 [facility] Systolic blood pressure 2023-02-17 16:20:00 113 mm[Hg] [facility] Diastolic blood pressure 2023-02-17 16:20:00 65 mm[Hg] [facility] Heart rate 2023-02-17 16:20:00 65 /min [facility] Body temperature 2023-02-17 16:20:00 36.83 Latanya [facility] Respiratory rate 2023-02-17 16:20:00 16 /min [facility] Oxygen saturation in Arterial blood by Pulse oximetry 2023-02-17 16:20:00 97 /min [facility] Body weight 2023-02-17 08:50:00 99.973 kg [facility] BMI 2023-02-17 08:50:00 40.31 kg/m2 [facility] Body height 2023-02-16 01:19:00 157.5 cm [facility] Systolic blood pressure 2022-01-10 01:24:00 120 mm[Hg] [facility] Diastolic blood pressure 2022-01-10 01:24:00 76 mm[Hg] [facility] Heart rate 2022-01-10 01:24:00 73 /min [facility] Respiratory rate 2022-01-10 01:24:00 16 /min [facility] Oxygen saturation in Arterial blood by Pulse oximetry 2022-01-10 01:24:00 96 /min [facility] Body weight 2022-01-09 21:39:00 104.327 kg [facility] BMI 2022-01-09 21:39:00 42.07 kg/m2 [facility] Systolic blood pressure 2021-12-14 07:22:00 121 mm[Hg] [facility] Diastolic blood pressure 2021-12-14 07:22:00 86 mm[Hg] [facility] Heart rate 2021-12-14 07:22:00 80 /min [facility] Respiratory rate 2021-12-14 07:22:00 17 /min [facility] Oxygen saturation in Arterial blood by Pulse oximetry 2021-12-14 07:22:00 96 /min [facility] Body temperature 2021-12-14 03:06:00 36.72 Latanya [facility] Body height 2021-12-14 03:06:00 157.5 cm [facility] Body weight 2021-12-14 03:06:00 95.255 kg [facility] BMI 2021-12-14 03:06:00 38.41 kg/m2 [facility] Systolic blood pressure 2021-11-12 04:15:00 112 mm[Hg] [facility] Diastolic blood pressure 2021-11-12 04:15:00 75 mm[Hg] [facility] Heart rate 2021-11-12 04:15:00 92 /min [facility] Body temperature 2021-11-12 04:15:00 36.44 Latanya [facility] Respiratory rate 2021-11-12 04:15:00 18 /min [facility] Oxygen saturation in Arterial blood by Pulse oximetry 2021-11-12 04:15:00 98 /min [facility] Body height 2021-11-12 00:41:00 157.5 cm [facility] Body weight 2021-11-12 00:41:00 95.255 kg [facility] BMI 2021-11-12 00:41:00 38.41 kg/m2 [facility] Systolic blood pressure 2021-09-12 01:31:00 142 mm[Hg] [facility] Diastolic blood pressure 2021-09-12 01:31:00 80 mm[Hg] [facility] Heart rate 2021-09-12 01:31:00 78 /min [facility] Body temperature 2021-09-12 01:31:00 36.72 Latanya [facility] Respiratory rate 2021-09-12 01:31:00 18 /min [facility] Body height 2021-09-12 01:31:00 157.5 cm [facility] Body weight 2021-09-12 01:31:00 99.791 kg [facility] BMI 2021-09-12 01:31:00 40.24 kg/m2 [facility] Oxygen saturation in Arterial blood by Pulse oximetry 2021-09-12 01:31:00 97 /min [facility] Systolic blood pressure 2021-08-15 08:20:00 120 mm[Hg] [facility] Diastolic blood pressure 2021-08-15 08:20:00 74 mm[Hg] [facility] Heart rate 2021-08-15 08:20:00 69 /min [facility] Respiratory rate 2021-08-15 08:20:00 20 /min [facility] Oxygen saturation in Arterial blood by Pulse oximetry 2021-08-15 08:20:00 96 /min [facility] Body temperature 2021-08-15 05:34:00 36.22 Latanya [facility] Body height 2021-08-15 05:34:00 157.5 cm [facility] Body weight 2021-08-15 05:34:00 99.791 kg [facility] BMI 2021-08-15 05:34:00 40.24 kg/m2 [facility] Systolic blood pressure 2021-05-28 10:00:00 122 mm[Hg] [facility] Diastolic blood pressure 2021-05-28 10:00:00 78 mm[Hg] [facility] Heart rate 2021-05-28 10:00:00 75 /min [facility] Respiratory rate 2021-05-28 10:00:00 20 /min [facility] Oxygen saturation in Arterial blood by Pulse oximetry 2021-05-28 10:00:00 99 /min [facility] Body temperature 2021-05-28 05:21:00 36.11 Latanya [facility] Body height 2021-05-28 05:21:00 157.5 cm [facility] Body weight 2021-05-28 05:21:00 99.791 kg [facility] BMI 2021-05-28 05:21:00 40.24 kg/m2 [facility] Systolic blood pressure 2021-04-08 21:55:00 110 mm[Hg] [facility] Diastolic blood pressure 2021-04-08 21:55:00 80 mm[Hg] [facility] Heart rate 2021-04-08 21:55:00 70 /min [facility] Body temperature 2021-04-08 21:55:00 36.28 Latanya [facility] Respiratory rate 2021-04-08 21:55:00 16 /min [facility] Oxygen saturation in Arterial blood by Pulse oximetry 2021-04-08 21:55:00 94 /min [facility] Body height 2021-04-08 03:00:00 157.5 cm [facility] Body weight 2021-04-08 03:00:00 105.688 kg [facility] BMI 2021-04-08 03:00:00 42.62 kg/m2 [facility] Systolic blood pressure 2021-01-12 09:00:00 147 mm[Hg] [facility] Diastolic blood pressure 2021-01-12 09:00:00 71 mm[Hg] [facility] Heart rate 2021-01-12 09:00:00 103 /min [facility] Respiratory rate 2021-01-12 09:00:00 18 /min [facility] Oxygen saturation in Arterial blood by Pulse oximetry 2021-01-12 09:00:00 97 /min [facility] Body temperature 2021-01-12 07:48:00 37.06 Latanya [facility] Body height 2021-01-12 07:48:00 157.5 cm [facility] Body weight 2021-01-12 07:48:00 102.513 kg [facility] BMI 2021-01-12 07:48:00 41.34 kg/m2 [facility] Systolic blood pressure 2020-12-11 01:30:00 136 mm[Hg] [facility] Diastolic blood pressure 2020-12-11 01:30:00 88 mm[Hg] [facility] Heart rate 2020-12-11 01:30:00 99 /min [facility] Respiratory rate 2020-12-11 01:30:00 28 /min [facility] Oxygen saturation in Arterial blood by Pulse oximetry 2020-12-11 01:30:00 97 /min [facility] Body temperature 2020-12-10 22:11:00 36.78 Latanya [facility] Body weight 2020-12-10 22:11:00 99.791 kg [facility] BMI 2020-12-10 22:11:00 40.24 kg/m2 [facility] Systolic blood pressure 2020-12-04 21:30:00 126 mm[Hg] [facility] Diastolic blood pressure 2020-12-04 21:30:00 79 mm[Hg] [facility] Heart rate 2020-12-04 21:30:00 91 /min [facility] Respiratory rate 2020-12-04 21:30:00 20 /min [facility] Oxygen saturation in Arterial blood by Pulse oximetry 2020-12-04 21:30:00 96 /min [facility] Body temperature 2020-12-04 19:49:00 37.06 Latanya [facility] Body height 2020-12-04 19:49:00 157.5 cm [facility] Body weight 2020-12-04 19:49:00 99.791 kg [facility] BMI 2020-12-04 19:49:00 40.24 kg/m2 [facility] Systolic blood pressure 2020-11-04 01:42:00 142 mm[Hg] [facility] Diastolic blood pressure 2020-11-04 01:42:00 100 mm[Hg] [facility] Heart rate 2020-11-04 01:42:00 109 /min [facility] Body temperature 2020-11-04 01:42:00 36.78 Latanya [facility] Respiratory rate 2020-11-04 01:42:00 20 /min [facility] Body weight 2020-11-04 01:42:00 99.791 kg [facility] BMI 2020-11-04 01:42:00 40.24 kg/m2 [facility] Oxygen saturation in Arterial blood by Pulse oximetry 2020-11-04 01:42:00 98 /min [facility] Systolic blood pressure 2020-09-17 15:52:00 138 mm[Hg] [facility] Diastolic blood pressure 2020-09-17 15:52:00 94 mm[Hg] [facility] Heart rate 2020-09-17 15:52:00 98 /min [facility] Body temperature 2020-09-17 15:52:00 36.94 Latanya [facility] Respiratory rate 2020-09-17 15:52:00 20 /min [facility] Body weight 2020-09-17 15:52:00 95.255 kg [facility] BMI 2020-09-17 15:52:00 38.41 kg/m2 [facility] Oxygen saturation in Arterial blood by Pulse oximetry 2020-09-17 15:52:00 97 /min [facility] Systolic blood pressure 2020-09-17 15:52:00 138 mm[Hg] [facility] Diastolic blood pressure 2020-09-17 15:52:00 94 mm[Hg] [facility] Heart rate 2020-09-17 15:52:00 98 /min [facility] Body temperature 2020-09-17 15:52:00 36.94 Latanya [facility] Respiratory rate 2020-09-17 15:52:00 20 /min [facility] Body weight 2020-09-17 15:52:00 95.255 kg [facility] BMI 2020-09-17 15:52:00 38.41 kg/m2 [facility] Oxygen saturation in Arterial blood by Pulse oximetry 2020-09-17 15:52:00 97 /min [facility] Systolic blood pressure 2020-09-07 06:35:00 123 mm[Hg] [facility] Diastolic blood pressure 2020-09-07 06:35:00 56 mm[Hg] [facility] Heart rate 2020-09-07 06:35:00 97 /min [facility] Body temperature 2020-09-07 06:35:00 36.28 Latanya [facility] Respiratory rate 2020-09-07 06:35:00 18 /min [facility] Body weight 2020-09-07 06:35:00 99.791 kg [facility] BMI 2020-09-07 06:35:00 40.24 kg/m2 [facility] Oxygen saturation in Arterial blood by Pulse oximetry 2020-09-07 06:35:00 98 /min [facility] Systolic blood pressure 2020-09-07 06:35:00 123 mm[Hg] [facility] Diastolic blood pressure 2020-09-07 06:35:00 56 mm[Hg] [facility] Heart rate 2020-09-07 06:35:00 97 /min [facility] Body temperature 2020-09-07 06:35:00 36.28 Latanya [facility] Respiratory rate 2020-09-07 06:35:00 18 /min [facility] Body weight 2020-09-07 06:35:00 99.791 kg [facility] BMI 2020-09-07 06:35:00 40.24 kg/m2 [facility] Oxygen saturation in Arterial blood by Pulse oximetry 2020-09-07 06:35:00 98 /min [facility] Systolic blood pressure 2020-08-28 09:00:00 132 mm[Hg] [facility] Diastolic blood pressure 2020-08-28 09:00:00 87 mm[Hg] [facility] Heart rate 2020-08-28 09:00:00 90 /min [facility] Respiratory rate 2020-08-28 09:00:00 20 /min [facility] Oxygen saturation in Arterial blood by Pulse oximetry 2020-08-28 09:00:00 97 /min [facility] Body temperature 2020-08-28 07:59:00 36.72 Latanya [facility] Body height 2020-08-28 07:59:00 157.5 cm [facility] Body weight 2020-08-28 07:59:00 99.791 kg [facility] BMI 2020-08-28 07:59:00 40.24 kg/m2 [facility] Systolic blood pressure 2020-08-28 09:00:00 132 mm[Hg] [facility] Diastolic blood pressure 2020-08-28 09:00:00 87 mm[Hg] [facility] Heart rate 2020-08-28 09:00:00 90 /min [facility] Respiratory rate 2020-08-28 09:00:00 20 /min [facility] Oxygen saturation in Arterial blood by Pulse oximetry 2020-08-28 09:00:00 97 /min [facility] Body temperature 2020-08-28 07:59:00 36.72 Latanya [facility] Body height 2020-08-28 07:59:00 157.5 cm [facility] Body weight 2020-08-28 07:59:00 99.791 kg [facility] BMI 2020-08-28 07:59:00 40.24 kg/m2 [facility] Systolic blood pressure 2020-08-14 19:40:00 135 mm[Hg] [facility] Diastolic blood pressure 2020-08-14 19:40:00 100 mm[Hg] [facility] Heart rate 2020-08-14 19:40:00 68 /min [facility] Body temperature 2020-08-14 19:40:00 37.11 Latanya [facility] Respiratory rate 2020-08-14 19:40:00 19 /min [facility] Oxygen saturation in Arterial blood by Pulse oximetry 2020-08-14 19:40:00 99 /min [facility] Body height 2020-08-14 17:41:00 157.5 cm [facility] Body weight 2020-08-14 17:41:00 99.791 kg [facility] BMI 2020-08-14 17:41:00 40.24 kg/m2 [facility] Systolic blood pressure 2020-08-14 19:40:00 135 mm[Hg] [facility] Diastolic blood pressure 2020-08-14 19:40:00 100 mm[Hg] [facility] Heart rate 2020-08-14 19:40:00 68 /min [facility] Body temperature 2020-08-14 19:40:00 37.11 Latanya [facility] Respiratory rate 2020-08-14 19:40:00 19 /min [facility] Oxygen saturation in Arterial blood by Pulse oximetry 2020-08-14 19:40:00 99 /min [facility] Body height 2020-08-14 17:41:00 157.5 cm [facility] Body weight 2020-08-14 17:41:00 99.791 kg [facility] BMI 2020-08-14 17:41:00 40.24 kg/m2 [facility] Systolic blood pressure 2020-08-11 04:00:00 106 mm[Hg] [facility] Diastolic blood pressure 2020-08-11 04:00:00 92 mm[Hg] [facility] Heart rate 2020-08-11 04:00:00 90 /min [facility] Respiratory rate 2020-08-11 04:00:00 16 /min [facility] Oxygen saturation in Arterial blood by Pulse oximetry 2020-08-11 04:00:00 99 /min [facility] Body temperature 2020-08-11 03:12:56 37.72 Latanya [facility] Body height 2020-08-11 00:19:00 157.5 cm [facility] Body weight 2020-08-11 00:19:00 99.791 kg [facility] BMI 2020-08-11 00:19:00 40.24 kg/m2 [facility] Systolic blood pressure 2020-08-11 04:00:00 106 mm[Hg] [facility] Diastolic blood pressure 2020-08-11 04:00:00 92 mm[Hg] [facility] Heart rate 2020-08-11 04:00:00 90 /min [facility] Respiratory rate 2020-08-11 04:00:00 16 /min [facility] Oxygen saturation in Arterial blood by Pulse oximetry 2020-08-11 04:00:00 99 /min [facility] Body temperature 2020-08-11 03:12:56 37.72 Latanya [facility] Body height 2020-08-11 00:19:00 157.5 cm [facility] Body weight 2020-08-11 00:19:00 99.791 kg [facility] BMI 2020-08-11 00:19:00 40.24 kg/m2 [facility] Systolic blood pressure 2020-08-07 13:16:00 100 mm[Hg] [facility] Diastolic blood pressure 2020-08-07 13:16:00 69 mm[Hg] [facility] Heart rate 2020-08-07 13:16:00 99 /min [facility] Body temperature 2020-08-07 13:16:00 36.67 Latanya [facility] Respiratory rate 2020-08-07 13:16:00 18 /min [facility] Body weight 2020-08-07 13:16:00 95.255 kg [facility] BMI 2020-08-07 13:16:00 38.41 kg/m2 [facility] Oxygen saturation in Arterial blood by Pulse oximetry 2020-08-07 13:16:00 99 /min [facility] Systolic blood pressure 2020-08-07 13:16:00 100 mm[Hg] [facility] Diastolic blood pressure 2020-08-07 13:16:00 69 mm[Hg] [facility] Heart rate 2020-08-07 13:16:00 99 /min [facility] Body temperature 2020-08-07 13:16:00 36.67 Latanya [facility] Respiratory rate 2020-08-07 13:16:00 18 /min [facility] Body weight 2020-08-07 13:16:00 95.255 kg [facility] BMI 2020-08-07 13:16:00 38.41 kg/m2 [facility] Oxygen saturation in Arterial blood by Pulse oximetry 2020-08-07 13:16:00 99 /min [facility] Systolic blood pressure 2020-07-01 02:00:00 136 mm[Hg] [facility] Diastolic blood pressure 2020-07-01 02:00:00 85 mm[Hg] [facility] Heart rate 2020-07-01 02:00:00 73 /min [facility] Respiratory rate 2020-07-01 02:00:00 20 /min [facility] Oxygen saturation in Arterial blood by Pulse oximetry 2020-07-01 02:00:00 97 /min [facility] Body temperature 2020-06-30 23:36:00 36.56 Latanya [facility] Body height 2020-06-30 23:36:00 157.5 cm [facility] Body weight 2020-06-30 23:36:00 95.255 kg [facility] BMI 2020-06-30 23:36:00 38.41 kg/m2 [facility] Systolic blood pressure 2020-07-01 02:00:00 136 mm[Hg] [facility] Diastolic blood pressure 2020-07-01 02:00:00 85 mm[Hg] [facility] Heart rate 2020-07-01 02:00:00 73 /min [facility] Respiratory rate 2020-07-01 02:00:00 20 /min [facility] Oxygen saturation in Arterial blood by Pulse oximetry 2020-07-01 02:00:00 97 /min [facility] Body temperature 2020-06-30 23:36:00 36.56 Latanya [facility] Body height 2020-06-30 23:36:00 157.5 cm [facility] Body weight 2020-06-30 23:36:00 95.255 kg [facility] BMI 2020-06-30 23:36:00 38.41 kg/m2 [facility] Systolic blood pressure 2020-06-28 21:57:00 151 mm[Hg] [facility] Diastolic blood pressure 2020-06-28 21:57:00 88 mm[Hg] [facility] Heart rate 2020-06-28 21:57:00 94 /min [facility] Body temperature 2020-06-28 21:57:00 37.78 Latanya [facility] Respiratory rate 2020-06-28 21:57:00 16 /min [facility] Body height 2020-06-28 21:57:00 157.5 cm [facility] Body weight 2020-06-28 21:57:00 95.255 kg [facility] BMI 2020-06-28 21:57:00 38.41 kg/m2 [facility] Oxygen saturation in Arterial blood by Pulse oximetry 2020-06-28 21:57:00 96 /min [facility] Systolic blood pressure 2020-06-28 21:57:00 151 mm[Hg] [facility] Diastolic blood pressure 2020-06-28 21:57:00 88 mm[Hg] [facility] Heart rate 2020-06-28 21:57:00 94 /min [facility] Body temperature 2020-06-28 21:57:00 37.78 Latanya [facility] Respiratory rate 2020-06-28 21:57:00 16 /min [facility] Body height 2020-06-28 21:57:00 157.5 cm [facility] Body weight 2020-06-28 21:57:00 95.255 kg [facility] BMI 2020-06-28 21:57:00 38.41 kg/m2 [facility] Oxygen saturation in Arterial blood by Pulse oximetry 2020-06-28 21:57:00 96 /min [facility] Systolic blood pressure 2020-06-13 03:40:00 122 mm[Hg] [facility] Diastolic blood pressure 2020-06-13 03:40:00 78 mm[Hg] [facility] Heart rate 2020-06-13 03:40:00 90 /min [facility] Respiratory rate 2020-06-13 03:40:00 18 /min [facility] Oxygen saturation in Arterial blood by Pulse oximetry 2020-06-13 03:40:00 94 /min [facility] Body temperature 2020-06-12 23:39:00 37.22 Latanya [facility] Body weight 2020-06-12 23:39:00 97.07 kg [facility] BMI 2020-06-12 23:39:00 39.14 kg/m2 [facility] Systolic blood pressure 2020-06-13 03:40:00 122 mm[Hg] [facility] Diastolic blood pressure 2020-06-13 03:40:00 78 mm[Hg] [facility] Heart rate 2020-06-13 03:40:00 90 /min [facility] Respiratory rate 2020-06-13 03:40:00 18 /min [facility] Oxygen saturation in Arterial blood by Pulse oximetry 2020-06-13 03:40:00 94 /min [facility] Body temperature 2020-06-12 23:39:00 37.22 Latanya [facility] Body weight 2020-06-12 23:39:00 97.07 kg [facility] BMI 2020-06-12 23:39:00 39.14 kg/m2 [facility] Heart rate 2020-05-17 00:40:00 82 /min [facility] Respiratory rate 2020-05-17 00:40:00 18 /min [facility] Oxygen saturation in Arterial blood by Pulse oximetry 2020-05-17 00:40:00 95 /min [facility] Systolic blood pressure 2020-05-17 00:00:00 137 mm[Hg] [facility] Diastolic blood pressure 2020-05-17 00:00:00 93 mm[Hg] [facility] Body temperature 2020-05-16 23:17:00 37.61 Latanya [facility] Body weight 2020-05-16 23:17:00 97.07 kg [facility] BMI 2020-05-16 23:17:00 39.14 kg/m2 [facility] Heart rate 2020-05-17 00:40:00 82 /min [facility] Respiratory rate 2020-05-17 00:40:00 18 /min [facility] Oxygen saturation in Arterial blood by Pulse oximetry 2020-05-17 00:40:00 95 /min [facility] Systolic blood pressure 2020-05-17 00:00:00 137 mm[Hg] [facility] Diastolic blood pressure 2020-05-17 00:00:00 93 mm[Hg] [facility] Body temperature 2020-05-16 23:17:00 37.61 Latanya [facility] Body weight 2020-05-16 23:17:00 97.07 kg [facility] BMI 2020-05-16 23:17:00 39.14 kg/m2 [facility] Systolic blood pressure 2020-05-15 08:50:00 131 mm[Hg] [facility] Diastolic blood pressure 2020-05-15 08:50:00 80 mm[Hg] [facility] Heart rate 2020-05-15 08:50:00 70 /min [facility] Respiratory rate 2020-05-15 08:50:00 18 /min [facility] Oxygen saturation in Arterial blood by Pulse oximetry 2020-05-15 08:50:00 97 /min [facility] Body temperature 2020-05-15 05:29:00 36.44 Latanya [facility] Body height 2020-05-15 05:29:00 157.5 cm [facility] Body weight 2020-05-15 05:29:00 97.07 kg Simultaneous filing. User may not have seen previous data. [facility] BMI 2020-05-15 05:29:00 39.14 kg/m2 [facility] Systolic blood pressure 2020-05-15 08:50:00 131 mm[Hg] [facility] Diastolic blood pressure 2020-05-15 08:50:00 80 mm[Hg] [facility] Heart rate 2020-05-15 08:50:00 70 /min [facility] Respiratory rate 2020-05-15 08:50:00 18 /min [facility] Oxygen saturation in Arterial blood by Pulse oximetry 2020-05-15 08:50:00 97 /min [facility] Body temperature 2020-05-15 05:29:00 36.44 Latanya [facility] Body height 2020-05-15 05:29:00 157.5 cm [facility] Body weight 2020-05-15 05:29:00 97.07 kg Simultaneous filing. User may not have seen previous data. [facility] BMI 2020-05-15 05:29:00 39.14 kg/m2 [facility] Procedures Procedure Date / Time Performed Performing Clinician Source URINE DRUG ([id number]) - COMPREHENSIVE DRUG SCREEN 2024-07-19 06:11:00 Saleem Edward [facility] URINALYSIS 2024-07-19 06:11:00 Saleem Edward [facility] CHEST PULMONARY ANGIOGRAM 2024-07-19 05:46:40 Saleem Edward [facility] MAGNESIUM 2024-07-19 05:08:00 [facility] I 2024-07-19 05:08:00 [facility] COMP. METABOLIC PANEL ([id number]) 2024-07-19 05:08:00 Saleem Edward Eleni [facility] CBC WITH DIFF 2024-07-19 05:08:00 Saleem Edward [facility] INFLUENZA A/B RSV COVID NAAT 2024-07-19 05:08:00 Saleem Edward Eleni [facility] N-TERMINAL PRO-BNP 2024-07-19 05:08:00 Saleem Edward [facility] CT ABDOMEN PELVIS W CONTRAST 2024-07-04 05:47:25 Sandy Garcia [facility] POCT TEST 2024-07-04 05:33:00 Ross Garcia [facility] LIPASE 2024-07-04 03:23:00 Sandy Garcia [facility] COMP. METABOLIC PANEL ([id number]) 2024-07-04 03:23:00 Sandy Garcia [facility] CBC WITH DIFF 2024-07-04 03:23:00 Sandy Garcia [facility] URINALYSIS 2024-07-04 03:23:00 Sandy Garcia [facility] CT ABDOMEN PELVIS W CONTRAST 2024-06-15 05:33:59 [facility] 2024-06-15 04:18:00 [facility] LIPASE 2024-06-15 04:14:00 [facility] TEST, SERUM 2024-06-15 04:14:00 Laney Garcia [facility] TROPONIN I 2024-06-15 04:14:00 Sandy Garcia [facility] COMP. METABOLIC PANEL ([id number]) 2024-06-15 04:14:00 [facility] WITH DIFF 2024-06-15 04:14:00 [facility] 2024-06-07 07:19:[address] [facility] XR CHEST 1 VW 2024-06-07 05:38:37 Olivia Garcia [facility] POCT TEST 2024-06-07 05:19:00 Olivia Garcia [facility] URINE DRUG (IMMUNOASSAY) - COMPREHENSIVE DRUG SCREEN 2024-06-07 05:18:00 Olivia Garcia [facility] TROPONIN I 2024-06-07 04:10:[address] [facility] COMP. METABOLIC PANEL ([id number]) 2024-06-07 04:10:00 Olivia Garcia [facility] CBC WITH DIFF 2024-06-07 04:10:00 Olivia Garcia [facility] CT HEAD WO CONTRAST 2024-05-19 18:22:43 Annalise Wright [facility] XR ELBOW <3 VW RIGHT 2024-05-18 02:32:12 Alesha Barrera [facility] XR FOREARM 2 VW RIGHT 2024-05-18 02:32:12 Alesha Moralez [facility] XR HAND 3+ VW RIGHT 2024-05-18 02:32:[facility] WO CONTRAST 2024-05-18 02:11:45 Alesha Roy [facility] CT MAXILLOFACIAL/MANDIBLE WO CONTRAST 2024-05-18 02:11:45 Alesha Roy [facility] POCT TEST 2024-05-08 02:00:00 Saleem dEward [facility] LIPASE 2024-05-08 00:31:00 [facility] MAGNESIUM 2024-05-08 00:31:00 [facility] TROPONIN I 2024-05-08 00:31:00 [facility] COMP. METABOLIC PANEL ([id number]) 2024-05-08 00:31:00 Saleem Edward [facility] CBC WITH DIFF 2024-05-08 00:31:[address] [facility] URINALYSIS 2024-05-08 00:31:00 [facility] ABDOMEN PELVIS WO CONTRAST 2024-04-08 23:45:15 Leigh Rojo [facility] POCT TEST 2024-04-08 23:01:00 Judy Rojo [facility] LIPASE 2024-04-08 22:47:00 [facility] COMP. METABOLIC PANEL ([id number]) 2024-04-08 22:47:00 Leihg Rojo [facility] CBC WITH DIFF 2024-04-08 22:47:[address] [facility] URINALYSIS 2024-04-08 22:47:00 [facility] CT ABDOMEN PELVIS W CONTRAST 2023-10-11 04:08:24 Olivia Garcia [facility] POCT TEST 2023-10-11 03:40:00 Olivia Garcia [facility] LIPASE 2023-10-11 03:25:00 Olivia Garcia [facility] COMP. METABOLIC PANEL ([id number]) 2023-10-11 03:25:00 Olivia Garcia [facility] CBC WITH DIFF 2023-10-11 03:25:00 Olivia Garcia [facility] URINALYSIS 2023-10-11 03:25:[address] [facility] XR KUB 2023-07-02 03:34:07 [facility] POCT TEST 2023-07-02 02:30:00 Alberta Richards [facility] LIPASE 2023-07-02 02:05:00 [facility] COMP. METABOLIC PANEL ([id number]) 2023-07-02 02:05:00 Roberto Richards [facility] CBC WITH DIFF 2023-07-02 02:05:[address] [facility] URINALYSIS 2023-07-02 02:05:00 [facility] URINE DRUG (IMMUNOASSAY) - COMPREHENSIVE DRUG SCREEN W/O REFLEX 2023-07-02 02:05:00 [facility]SENT/REFUSAL FOR DIAGNOSIS AND TREATMENT 2023-07-02 01:43:05 Doctor Unassigned, [place] [facility] LIPASE 2023-05-09 22:47:00 [facility] COMP. METABOLIC PANEL ([id number]) 2023-05-09 22:47:00 Narayan Narvaez [facility] CBC WITH DIFF 2023-05-09 22:47:[address] [facility] CONSENT/REFUSAL FOR DIAGNOSIS AND TREATMENT 2023-05-09 22:32:48 Doctor Unassigned, [place] [facility] CT ABDOMEN PELVIS W CONTRAST 2023-04-30 23:47:56 [facility] COMP. METABOLIC PANEL ([id number]) 2023-04-30 23:08:00 Narayan Narvaez [facility] CBC WITH DIFF 2023-04-30 23:08:[address] [facility] POCT TEST 2023-04-30 22:59:00 Jaquan Narvaez [facility] URINALYSIS 2023-04-30 22:57:00 Narayan Narvaez [facility] CONSENT/REFUSAL FOR DIAGNOSIS AND TREATMENT 2023-04-30 22:14:38 Doctor Unassigned, [place] [facility] XR ABDOMEN ACUTE SERIES 2023-04-17 02:13:44 Do minal Richards [facility] POCT TEST 2023-04-17 02:11:00 Alberta Richards [facility] LIPASE 2023-04-17 02:04:00 Roberto Richards [facility] TROPONIN I 2023-04-17 02:04:00 Roberto Richards [facility] COMP. METABOLIC PANEL ([id number]) 2023-04-17 02:04:00 Roberto Richards [facility] CBC WITH DIFF 2023-04-17 02:04:00 [facility] / INR 2023-04-17 02:04:00 Jalen Richards [facility] ACTIVATED PARTIAL THRMPLAS MARCIO 2023-04-17 02:04:00 Roberto Richards [facility] URINALYSIS 2023-04-17 02:04:00 Roberto Richards [facility] N-TERMINAL PRO-BNP 2023-04-17 02:04:00 Roberto Richards [facility] URINE DRUG (IMMUNOASSAY) - COMPREHENSIVE DRUG SCREEN W/O REFLEX 2023-04-17 02:04:00 Roberto Richards [facility] CONSENT/REFUSAL FOR DIAGNOSIS AND TREATMENT 2023-04-17 01:22:36 Doctor Unassigned, [place] [facility] URINALYSIS 2023-04-09 01:02:00 Saleem Edward [facility] LIPASE 2023-04-08 23:15:00 Saleem Edward [facility] MAGNESIUM 2023-04-08 23:15:00 Saleem Edward [facility] TROPONIN I 2023-04-08 23:15:00 Wagner, K Eleni [facility] COMP. METABOLIC PANEL ([id number]) 2023-04-08 23:15:00 Saleem Edward [facility] CBC WITH DIFF 2023-04-08 23:15:[address] [facility] CONSENT/REFUSAL FOR DIAGNOSIS AND TREATMENT 2023-04-08 21:57:42 Doctor Unassigned, [place] [facility] CT ABDOMEN PELVIS W CONTRAST 2023-03-10 03:38:58 Roberto Richards [facility] POCT TEST 2023-03-10 02:51:00 Alberta Richards [facility] URINALYSIS 2023-03-10 01:49:00 Roberto Richards [facility] LIPASE 2023-03-10 01:46:00 Roberto Richards [facility] COMP. METABOLIC PANEL ([id number]) 2023-03-10 01:46:00 Roberto Richards [facility] CBC WITH DIFF 2023-03-10 01:46:[address] [facility] CONSENT/REFUSAL FOR DIAGNOSIS AND TREATMENT 2023-03-10 01:36:24 Doctor Unassigned, [place] [facility] CONSENT/REFUSAL FOR DIAGNOSIS AND TREATMENT 2023-03-10 01:14:40 Doctor Unassigned, [place] [facility] CT ABDOMEN PELVIS W CONTRAST 2023-03-02 05:16:35 Olivia Garcia [facility] POCT TEST 2023-03-02 03:26:00 Olivia Garcia [facility] LIPASE 2023-03-02 03:23:[address] [facility] COMP. METABOLIC PANEL ([id number]) 2023-03-02 03:23:00 Olivia Garcia [facility] CBC WITH DIFF 2023-03-02 03:23:00 Olivia Garcia [facility] URINALYSIS 2023-03-02 03:23:[address] [facility] CONSENT/REFUSAL FOR DIAGNOSIS AND TREATMENT 2023-03-02 00:22:44 Doctor Unassigned, [place] [facility] CONSENT/REFUSAL FOR DIAGNOSIS AND TREATMENT 2023-02-18 03:44:46 Doctor Unassigned, [place] [facility] LIPASE 2023-02-17 09:28:[address] [facility] HEPATIC FUNCTION PANEL ([id number]) (ALB,T.PRO,BILI T,BU/BC,ALT,AST,ALK PHOS) 2023-02-17 09:28:00 [facility]OLIC PANEL (NA, K, CL, CO2, GLUCOSE, BUN, CREATININE, CA) 2023-02-17 09:28:00 [facility] DIFF 2023-02-17 09:28:00 [facility] LIPASE 2023-02-16 18:24:[address] [facility] HEPATIC FUNCTION PANEL ([id number]) (ALB,T.PRO,BILI T,BU/BC,ALT,AST,ALK PHOS) 2023-02-16 18:24:00 Kylah [facility] BASIC METABOLIC PANEL (NA, K, CL, CO2, GLUCOSE, BUN, CREATININE, CA) 2023-02-16 18:24:00 Kylah [facility] CBC WITH DIFF 2023-02-16 18:23:00 Jesús Montero [facility] CT ABDOMEN PELVIS W CONTRAST 2023-02-15 23:29:00 Leeanne Wise [facility] LIPASE 2023-02-15 21:45:[address] [facility] COMP. METABOLIC PANEL ([id number]) 2023-02-15 21:45:00 Leeanne Wise [facility] CBC WITH DIFF 2023-02-15 21:45:00 Leeanne Wise [facility] D-DIMER 2023-02-15 19:55:[address] [facility] URINALYSIS 2023-02-15 19:50:[address] [facility] RAPID INFLUENZA A/B 2023-02-15 19:50:00 Leeanne Wise [facility] COVID-19 (ID NOW RAPID TESTING) 2023-02-15 19:50:00 Leeanne Wise [facility] XR CHEST 1 VW 2023-02-15 19:38:00 Leeanne Wise [facility] ASSIGNMENT OF BENEFITS 2023-02-15 19:26:58 Docto r Unassigned, [place] [facility] HB ECG ROUTINE & RHYTHM STRIP 2023-02-15 19:07:40 Leeanne Wise [facility] NOTICE OF PRIVACY PRACTICES 2023-02-15 18:24:07 Doctor Unassigned, [place] [facility] CONSENT/REFUSAL FOR DIAGNOSIS AND TREATMENT 2023-02-15 18:23:04 Doctor Unassigned, [place] [facility] TROPONIN I 2022-01-10 00:32:[address] [facility] TROPONIN I 2022-01-09 22:17:[address] [facility] BASIC METABOLIC PANEL (NA, K, CL, CO2, GLUCOSE, BUN, CREATININE, CA) 2022-01-09 22:17:00 Melida Longoria [facility] CBC WITH DIFF 2022-01-09 22:17:00 [facility] N-TERMINAL PRO-BNP 2022-01-09 22:17:00 Melida Longoria [facility] XR CHEST 1 VW 2022-01-09 22:11:00 [facility] CONSENT/REFUSAL FOR DIAGNOSIS AND TREATMENT 2022-01-09 21:34:15 Doctor Unassigned, [place] [facility] TROPONIN I 2021-12-14 05:39:00 [facility] XR CHEST 1 VW 2021-12-14 04:39:[address] [facility] POCT TEST 2021-12-14 04:20:00 Wil Mcqueen [facility] URINALYSIS 2021-12-14 03:57:00 Wil Mcqueen [facility] LIPASE 2021-12-14 03:43:00 Wil Mcqueen [facility] TROPONIN I 2021-12-14 03:43:00 Wil Mcqueen [facility] FREE T4 2021-12-14 03:43:00 Wil Mcqueen [facility] THYROID STIMULATING HORMONE 2021-12-14 03:43:00 Wil Mcqueen [facility] COMP. METABOLIC PANEL ([id number]) 2021-12-14 03:43:00 Wil Mcqueen [facility] CBC WITH DIFF 2021-12-14 03:43:00 [facility] 2021-12-14 03:43:00 Wil Mcqueen [facility] CONSENT/REFUSAL FOR DIAGNOSIS AND TREATMENT 2021-12-14 02:58:21 Doctor Unassigned, [place] [facility] TROPONIN I 2021-11-12 03:04:00 Dee Wang [facility] POCT TEST 2021-11-12 02:56:00 Tra Wang [facility] URINE DRUG (IMMUNOASSAY) - COMPREHENSIVE DRUG SCREEN 2021-11-12 02:30:00 Dee Wang [facility] URINALYSIS 2021-11-12 02:30:00 Dee Wang [facility] XR CHEST 2 VW 2021-11-12 01:45:03 Dee Wang [facility] LIPASE 2021-11-12 01:34:00 Dee Wang [facility] TROPONIN I 2021-11-12 01:34:00 Dee Wang [facility] COMP. METABOLIC PANEL ([id number]) 2021-11-12 01:34:00 Dee Wang [facility] CBC WITH DIFF 2021-11-12 01:34:00 Dee Wang [facility] N-TERMINAL PRO-BNP 2021-11-12 01:34:00 Mckinley Wang [facility] CONSENT/REFUSAL FOR DIAGNOSIS AND TREATMENT 2021-11-12 00:36:34 Doctor Unassigned, [place] [facility] CT ABDOMEN PELVIS W CONTRAST 2021-09-12 02:49:43 Dee Wang [facility] COVID-19 (ID NOW RAPID TESTING) 2021-09-12 02:23:00 Dee Wang [facility] POCT TEST 2021-09-12 02:21:00 Tra Wang [facility] POCT TEST 2021-09-12 01:45:00 Olivia Garcia [facility] URINALYSIS 2021-09-12 01:43:[address] [facility] LIPASE 2021-09-12 01:40:[address] [facility] COMP. METABOLIC PANEL ([id number]) 2021-09-12 01:40:00 Olivia Garcia [facility] CBC WITH DIFF 2021-09-12 01:40:00 Olivia Garcia [facility] CONSENT/REFUSAL FOR DIAGNOSIS AND TREATMENT 2021-09-12 01:26:55 Doctor Unassigned, [place] [facility] XR LUMBAR SPINE 1 VW 2021-08-15 07:03:00 Angeles Garcia i [facility] URINALYSIS 2021-08-15 06:35:[address] [facility] POCT TEST 2021-08-15 06:35:00 Olivia Garcia [facility] NOTICE OF PRIVACY PRACTICES 2021-08-15 06:01:56 Doctor Unassigned, [place] [facility] CONSENT/REFUSAL FOR DIAGNOSIS AND TREATMENT 2021-08-15 05:25:54 Doctor Unassigned, [place] [facility] TROPONIN I 2021-05-28 07:50:00 Cem Choi [facility] D-DIMER 2021-05-28 07:05:00 Cem Choi [facility] XR CHEST 2 VW 2021-05-28 05:46:[address] [facility] POCT TEST 2021-05-28 05:32:00 Cem Choi [facility] LIPASE 2021-05-28 05:29:00 Cem Choi [facility] TROPONIN I 2021-05-28 05:29:00 Cem Choi [facility] COMP. METABOLIC PANEL ([id number]) 2021-05-28 05:29:00 [facility] 2021-05-28 05:29:[address] [facility] N-TERMINAL PRO-BNP 2021-05-28 05:29:00 Cem Choi [facility] COVID-19 (ID NOW RAPID TESTING) 2021-05-28 05:29:00 [facility] TROPONIN I 2021-04-08 10:01:00 Brittni Romero [facility] BASIC METABOLIC PANEL (NA, K, CL, CO2, GLUCOSE, BUN, CREATININE, CA) 2021-04-08 10:01:00 Brittni Romero [facility] CBC WITH DIFF 2021-04-08 10:01:00 Brittni Romero [facility] TROPONIN I 2021-04-08 04:12:00 Brittni Romero [facility] XR CHEST 1 VW 2021-04-07 22:33:[address] [facility] LIPASE 2021-04-07 21:52:00 [facility] MAGNESIUM 2021-04-07 21:52:00 Brittni Romero [facility] TROPONIN I 2021-04-07 21:52:00 [facility] THYROID STIMULATING HORMONE 2021-04-07 21:52:00 [facility]. METABOLIC PANEL ([id number]) 2021-04-07 21:52:00 Roberto Richards [facility] LIPID PANEL ([id number])(TOTAL CHOLESTEROL, TRIGLYCERIDES, HDL) 2021-04-07 21:52:00 [facility]FF 2021-04-07 21:52:[address] [facility] GLYCOSYLATED HEMOGLOBIN (A1C) 2021-04-07 21:52:00 Brittni Romero [facility] PROTHROMBIN TIME / INR 2021-04-07 21:52:00 Jalen Richards [facility] ACTIVATED PARTIAL THRMPLAS MARCIO 2021-04-07 21:52:00 [facility] N-TERMINAL [facility]-BNP 2021-04-07 21:52:00 Roberto Richards [facility] COVID-19 (ID NOW RAPID TESTING) 2021-04-07 21:51:00 [facility] HB ECG ROUTINE & RHYTHM STRIP 2021-04-07 21:38:41 [facility] CONSENT/REFUSAL FOR DIAGNOSIS AND TREATMENT 2021-04-07 21:17:47 Doctor Unassigned, [place] [facility] CT ABDOMEN PELVIS WO CONTRAST 2021-01-12 08:10:17 [facility] 2021-01-12 08:02:00 Jaquan Narvaez [facility] URINALYSIS 2021-01-12 07:58:00 Narayan Narvaez [facility] COMP. METABOLIC PANEL ([id number]) 2021-01-12 07:56:00 Narayan Narvaez [facility] CBC WITH DIFF 2021-01-12 07:56:[address] [facility] TROPONIN I 2020-12-11 00:47:[address] [facility] XR CHEST 1 VW 2020-12-10 22:40:57 Bal Hassan [facility] POCT TEST 2020-12-10 22:32:00 Suzanna Hassan [facility] URINALYSIS 2020-12-10 22:30:[address] [facility] LIPASE 2020-12-10 22:24:00 [facility] 2020-12-10 22:24:00 [facility] HEPATIC FUNCTION PANEL ([id number]) (ALB,T.PRO,BILI T,BU/BC,ALT,AST,ALK PHOS) 2020-12-10 22:24:00 [facility]OLIC PANEL (NA, K, CL, CO2, GLUCOSE, BUN, CREATININE, CA) 2020-12-10 22:24:00 [facility] WITH DIFF 2020-12-10 22:24:00 Bal Hassan [facility] D-DIMER 2020-12-10 22:24:00 Mo [facility] N-TERMINAL PRO-BNP 2020-12-10 22:24:00 Mirtha Hassan [facility] POCT TEST 2020-12-04 21:18[facility]00 [facility] 2020-12-04 21:17:[address] [facility] LIPASE 2020-12-04 20:20:[address] [facility] TROPONIN I 2020-12-04 20:20:[address] [facility] HEPATIC FUNCTION PANEL ([id number]) (ALB,T.PRO,BILI T,BU/BC,ALT,AST,ALK PHOS) 2020-12-04 20:20:00 [facility] BASIC METABOLIC PANEL (NA, K, CL, CO2, GLUCOSE, BUN, CREATININE, CA) 2020-12-04 20:20:00 [facility] CBC WITH DIFF 2020-12-04 20:20:00 Tremaine Becerra [facility] XR CHEST 1 VW 2020-12-04 20:16:54 [facility]+ VW LEFT 2020-12-04 20:16:54 Tremaine Becerra [facility] CONSENT/REFUSAL FOR DIAGNOSIS AND TREATMENT 2020-12-04 19:43:45 Doctor Unassigned, [place] [facility] XR CHEST 1 VW 2020-11-04 02:24:02 Olivia Garcia [facility] URINE DRUG (IMMUNOASSAY) - 4 ER PANEL 2020-11-04 02:19:00 Olivia Garcia [facility] URINALYSIS 2020-11-04 02:19:00 Olivia Garcia [facility] LIPASE 2020-11-04 02:16:00 Jose [facility] TROPONIN I 2020-11-04 02:16:00 Olivia Garcia [facility] COMP. METABOLIC PANEL ([id number]) 2020-11-04 02:16:00 Olivia Garcia [facility] CBC WITH DIFF 2020-11-04 02:16:00 Olivia Garcia [facility] PROTHROMBIN TIME / INR 2020-11-04 02:16:00 Lucia Garcia [facility] ACTIVATED PARTIAL THRMPLAS MARCIO 2020-11-04 02:16:00 Olivia Garcia [facility] CONSENT/REFUSAL FOR DIAGNOSIS AND TREATMENT 2020-11-04 01:11:16 Doctor Unassigned, [place] [facility] XR CHEST 1 VW 2020-09-17 17:32:21 Leeanne Wise [facility] RAPID STREP SCREEN FOR GROUP A 2020-09-17 16:31:00 Leeanne Wise [facility] COVID-19 (ID NOW RAPID TESTING) 2020-09-17 16:31:00 Leeanne Wise [facility] NOTICE OF PRIVACY PRACTICES 2020-09-17 15:47:38 Doctor Unassigned, [place] [facility] CONSENT/REFUSAL FOR DIAGNOSIS AND TREATMENT 2020-09-17 15:47:07 Doctor Unassigned, [place] [facility] XR FOREARM 2 VW LEFT 2020-09-07 06:59:53 Saleem Edward [facility] XR HAND 3+ VW LEFT 2020-09-07 06:59:53 Saleem Edward [facility] NOTICE OF PRIVACY PRACTICES 2020-09-07 06:06:09 Doctor Unassigned, [place] [facility] CONSENT/REFUSAL FOR DIAGNOSIS AND TREATMENT 2020-09-07 06:03:10 Doctor Unassigned, [place] [facility] CT ABDOMEN PELVIS W CONTRAST 2020-08-28 09:16:08 Olivia Garcia [facility] POCT TEST 2020-08-28 08:45:00 Olivia Garcia [facility] URINALYSIS 2020-08-28 08:43:00 Olivia Garcia [facility] [facility] 2020-08-28 08:09:00 Olivia Garcia [facility] COMP. METABOLIC PANEL (48648) 2020-08-28 08:09:00 Olivia Garcia [facility] CBC WITH DIFF 2020-08-28 08:09:00 Olivia Garcia [facility] XR CHEST 1 VW 2020-08-14 18:10:03 Best Taylor [facility] LIPASE 2020-08-14 17:58:00 [facility] TROPONIN I 2020-08-14 17:58:[address] [facility] COMP. METABOLIC PANEL (98790) 2020-08-14 17:58:00 Best Taylor [facility] CBC WITH DIFF 2020-08-14 17:58:00 Best Taylor [facility] URINALYSIS 2020-08-14 17:58:[address] [facility] LACTIC ACID WHOLE BLOOD 2020-08-14 17:58:00 Sophie Taylor [facility] ADC / LCC - DRUG SCREEN TRIAGE 2020-08-14 17:58:00 Best Taylor [facility] CONSENT/REFUSAL FOR DIAGNOSIS AND TREATMENT 2020-08-14 17:33:16 Doctor Unassigned, [place] [facility] CT ABDOMEN PELVIS WO CONTRAST 2020-08-11 04:11:07 Bets Taylor [facility] XR CHEST 1 VW 2020-08-11 03:56:48 Best Taylor [facility] POCT TEST 2020-08-11 03:10:00 Best Taylor [facility] BLOOD CULTURE SCREEN 2020-08-11 02:01:00 Best Taylor [facility] BLOOD CULTURE SCREEN 2020-08-11 01:45:00 Best Taylor [facility] LIPASE 2020-08-11 01:45:[address] [facility] TROPONIN I 2020-08-11 01:45:[address] [facility] HEPATIC FUNCTION PANEL (99475) (ALB,T.PRO,BILI T,BU/BC,ALT,AST,ALK PHOS) 2020-08-11 01:45:00 Best Taylor [facility] BASIC METABOLIC PANEL (NA, K, CL, CO2, GLUCOSE, BUN, CREATININE, CA) 2020-08-11 01:45:00 Best Taylor [facility] CBC WITH DIFF 2020-08-11 01:45:00 Best Taylor [facility] URINALYSIS 2020-08-11 01:45:00 [facility] LACTIC ACID WHOLE BLOOD 2020-08-11 01:45:00 Sophie Taylor [facility] COVID-19 (ID NOW RAPID TESTING) 2020-08-11 01:45:00 Best Taylor [facility] CONSENT/REFUSAL FOR DIAGNOSIS AND TREATMENT 2020-08-11 00:12:54 Doctor Unassigned, [place] [facility] XR FOREARM 2 VW LEFT 2020-08-07 14:03:06 Unique Richards [facility] COVID-19 (ID NOW RAPID TESTING) 2020-08-07 13:35:00 Roberto Richards [facility] NOTICE OF PRIVACY PRACTICES 2020-08-07 13:13:25 Doctor Unassigned, [place] [facility] CONSENT/REFUSAL FOR DIAGNOSIS AND TREATMENT 2020-08-07 13:11:06 Doctor Unassigned, [place] [facility] CONSENT/REFUSAL FOR DIAGNOSIS AND TREATMENT 2020-08-07 13:10:57 Doctor Unassigned, [place] [facility] TROPONIN I 2020-07-01 02:03:[address] [facility] POCT TEST 2020-07-01 00:51:00 [facility] URINALYSIS 2020-07-01 00:48:[address] [facility] CBC WITH DIFF 2020-07-01 00:12:00 Abdias Robertson [facility] EXTRA TUBE LT. BLUE 2020-07-01 00:12:00 Abdias Robertson [facility] LIPASE 2020-07-01 00:09:[address] [facility] TROPONIN I 2020-07-01 00:09:[address] [facility] BASIC METABOLIC PANEL (NA, K, CL, CO2, GLUCOSE, BUN, CREATININE, CA) 2020-07-01 00:09:00 Abdias Robertson [facility] ADC,CLC OR LCC ONLY - INFLUENZA A & B DIRECT ANTIGEN 2020-07-01 00:09:00 Abdias Robertson [facility] N-TERMINAL PRO-BNP 2020-07-01 00:09:00 Abdias Robertson [facility] XR CHEST 1 VW 2020-07-01 00:07:07 Abdias Robertson [facility] NOTICE OF PRIVACY PRACTICES 2020-06-30 23:27:46 Doctor Unassigned, [place] [facility] CT CERVICAL SPINE WO CONTRAST 2020-06-28 23:12:00 Narayan Narvaez [facility] CONSENT/REFUSAL FOR DIAGNOSIS AND TREATMENT 2020-06-28 21:52:44 Doctor Unassigned, [place] [facility] POCT TEST 2020-06-13 01:50:00 Leeanne Wise [facility] XR CHEST 1 VW 2020-06-13 01:18:17 Leeanne Wise [facility] URINALYSIS 2020-06-13 00:34:[address] [facility] COVID-19 (ID NOW RAPID TESTING) 2020-06-13 00:34:00 Leeanne Wise [facility] LIPASE 2020-06-13 00:33:[address] [facility] TROPONIN I 2020-06-13 00:33:[address] [facility] HEPATIC FUNCTION PANEL ([id number]) (ALB,T.PRO,BILI T,BU/BC,ALT,AST,ALK PHOS) 2020-06-13 00:33:00 Leeanne Wise [facility] BASIC METABOLIC PANEL (NA, K, CL, CO2, GLUCOSE, BUN, CREATININE, CA) 2020-06-13 00:33:00 Leeanne Wise [facility] CBC WITH DIFF 2020-06-13 00:33:00 Leeanne Wise [facility] D-DIMER 2020-06-13 00:33:[address] [facility] CONSENT/REFUSAL FOR DIAGNOSIS AND TREATMENT 2020-06-12 23:27:48 Doctor Unassigned, [place] [facility] COVID-19 (ID NOW RAPID TESTING) 2020-05-16 23:50:00 Bushra Rios [facility] LIPASE 2020-05-16 23:21:00 [facility]EL ([id number]) (ALB,T.PRO,BILI T,BU/BC,ALT,AST,ALK PHOS) 2020-05-16 23:21:00 Bushra Rios [facility] BASIC METABOLIC PANEL (NA, K, CL, CO2, GLUCOSE, BUN, CREATININE, CA) 2020-05-16 23:21:00 Bushra Rios [facility] CBC WITH DIFF 2020-05-16 23:21:00 Bushra Rios U [facility] ACETAMINOPHEN 2020-05-15 07:42:00 Roberto Richards [facility] CT ABDOMEN PELVIS W CONTRAST 2020-05-15 06:56:53 Roberto Richards [facility] CT HEAD WO CONTRAST 2020-05-15 06:56:27 Alberta Richards [facility] POCT TEST 2020-05-15 05:53:00 Alberta Richards [facility] LIPASE 2020-05-15 05:52:00 Roberto Richards [facility] HEPATIC FUNCTION PANEL ([id number]) (ALB,T.PRO,BILI T,BU/BC,ALT,AST,ALK PHOS) 2020-05-15 05:52:00 Roberto Richards [facility] BASIC METABOLIC PANEL (NA, K, CL, CO2, GLUCOSE, BUN, CREATININE, CA) 2020-05-15 05:52:00 Roberto Richards [facility] ETHANOL 2020-05-15 05:52:00 Roberto Richards [facility] CBC WITH DIFF 2020-05-15 05:52:00 Roberto Richards [facility] PROTHROMBIN TIME / INR 2020-05-15 05:52:00 Jalen Richards [facility] ACTIVATED PARTIAL THRMPLAS MARCIO 2020-05-15 05:52:00 Roberto Richards [facility] URINALYSIS 2020-05-15 05:52:00 [facility] ADC / LCC - DRUG SCREEN TRIAGE 2020-05-15 05:52:00 Roberto Richards [facility] NOTICE OF PRIVACY PRACTICES 2020-05-15 05:12:38 Doctor Unassigned, [place] [facility] CONSENT/REFUSAL FOR DIAGNOSIS AND TREATMENT 2020-05-15 05:12:26 Doctor Unassigned, [place] [facility] Encounters Start Date/Time End Date/Time Encounter Type Admission Type [facility]ending [facility] Facility Care Department Encounter ID Source 2024-09-15 11:15:00 2024-09-15 11:15:00 Outpatient KELLEE DORMAN [id number] [facility]ellee Marcio 2024-09-15 10:45:00 2024-09-15 10:45:00 Outpatient KELLEE DORMAN [id number] [facility] Marcio 2024-09-15 10:15:00 2024-09-15 10:15:00 Outpatient KELLEE DORMAN [id number] [facility]ellee Marcio 2024-08-18 10:00:00 2024-08-18 10:00:00 Outpatient JOANNE MONTES [id number] [facility] 2024-08-03 00:00:00 2024-08-03 00:00:00 Outpatient JOANNE MONTES [id number] [facility]ellee beck 2024-07-18 22:48:00 2024-07-19 01:24:00 Emergency X Saleem EDWARD K [facility] [id number] [facility] 2024-07-18 22:48:00 2024-07-19 01:24:00 Emergency Saleem Edward [facility] 1.2.840.114 350.1.13.10 4.2.7.2.686 [id number] [facility] 2024-07-15 00:00:00 2024-07-15 00:00:00 Outpatient JOANNE MONTES [id number] [facility]ellee azra 2024-07-10 00:00:00 2024-07-10 00:00:00 Outpatient JOANNE MONTES [id number] [facility] 2024-07-09 00:00:00 2024-07-09 00:00:00 Outpatient RADIOLOGY, DEPT KELLEE DORMAN [id number] [facility] Buckley 2024-07-09 00:00:00 2024-07-09 00:00:00 Outpatient RADIOLOGY, DEPT KELLEE DORMAN [id number] [facility] Buckley 2024-07-07 00:00:00 2024-07-07 00:00:00 Outpatient MD KELLEE CHOI [id number] [facility] 2024-07-06 07:00:00 2024-07-06 07:00:00 Outpatient KELLEE DORMAN [id number] [facility] 2024-07-06 00:00:00 2024-07-06 00:00:00 Outpatient GISELLE OSORIO [id number] [facility] 2024-07-03 19:56:00 2024-07-04 01:32:00 Emergency X VINCTARIQ, SHINTA STEPHONTARIQ, SHINTA [facility] [id number] [facility] 2024-07-03 19:56:00 2024-07-04 01:32:00 Emergency Sandy Garcia [facility] 1.2.840.114 350.1.13.10 4.2.7.2.686 [id number] [facility] 2024-06-21 02:04:00 2024-06-21 02:59:00 Emergency X VINCENT, SHINTA STEPHONTARIQ, SHINTA [facility] E[facility] [id number] [facility] 2024-06-21 02:04:00 2024-06-21 02:59:00 Emergency Sandy Garcia [facility] 1.2.840.114 350.1.13.10 4.2.7.2.686 [id number] [facility] 2024-06-20 00:00:00 2024-06-20 00:00:00 Outpatient JOANNE MONTES [id number] [facility] 2024-06-18 00:00:00 2024-06-18 00:00:00 Outpatient GISELLE OSORIO [id number] [facility] 2024-06-17 15:30:00 2024-06-17 15:30:00 Outpatient KELLEE DORMAN [id number] [facility] 2024-06-14 21:28:00 2024-06-15 00:28:00 Emergency X VINCTARIQ, SHINTA ASHWINI, SHINTA [facility] E[facility] [id number] [facility] 2024-06-14 21:28:00 2024-06-15 00:28:00 Emergency Sandy Garcia [facility] 1.2.840.114 350.1.13.10 4.2.7.2.686 [id number] [facility] 2024-06-06 21:56:00 2024-06-07 02:40:00 Emergency X SONIA GARCIARACHELLE AGRAWALCHUYOLIVIA [facility] ERT [id number] [facility] 2024-06-06 21:56:00 2024-06-07 02:40:00 Emergency Olivia Garcia Raad [facility] 1.2.840.114 350.1.13.10 4.2.7.2.686 [id number] [facility] 2024-06-02 00:00:00 2024-06-02 00:00:00 Outpatient JOANNE MONTES [id number] [facility] 2024-05-28 13:00:00 2024-05-28 13:00:00 Outpatient GISELLE OSORIO [id number] [facility] 2024-05-20 00:00:00 2024-05-20 00:00:00 Outpatient JOANNE MONTES [id number] [facility] 2024-05-19 11:44:00 2024-05-19 13:35:00 Emergency X ANNALISE WRIGHT [facility] ERT [id number] [facility] 2024-05-19 11:44:00 2024-05-19 13:35:00 Emergency Annalise Wright [facility] 1.2.840.114 350.1.13.10 4.2.7.2.686 [id number] [facility] 2024-05-18 11:15:00 2024-05-18 11:15:00 Outpatient LAB90 KELLEE DORMAN [id number] [facility] 2024-05-18 10:30:00 2024-05-18 10:30:00 Outpatient JYOTI JOANNE DORMAN [id number] [facility] 2024-05-17 18:30:00 2024-05-17 22:19:00 Emergency Alesha Roy [facility] 1.2.840.114 350.1.13.10 4.2.7.2.686 [id number] [facility] 2024-05-13 18:04:00 2024-05-13 20:42:00 Emergency ER CONCHA ARELIS [facility] [id number] [facility] 2024-05-12 00:00:00 2024-05-12 00:00:00 Outpatient JOANNE MONTES [id number] [facility] 2024-05-07 18:47:00 2024-05-07 21:36:00 Emergency Wagner Saleem Knowles [facility] 1.2.840.114 350.1.13.10 4.2.7.2.686 [id number] [facility] 2024-04-22 09:15:00 2024-04-22 09:15:00 Outpatient FARTUN GILLESPIE [id number] [facility] 2024-04-15 10:30:00 2024-04-15 10:30:00 Outpatient JOANNE MONTES [id number] [facility] 2024-04-12 00:00:00 2024-04-12 00:00:00 Outpatient JOANNE MONTES [id number] [facility] 2024-04-10 16:20:00 2024-04-10 18:53:00 Emergency ER TAVARES MG JR [facility] [id number] [facility] 2024-04-10 16:20:00 2024-04-10 18:53:00 Departed Emergency Room [facility] [id number] Heather [facility] 2024-04-08 17:37:00 2024-04-08 20:38:00 Emergency Leigh Rojo [facility] 1.2.840.114 350.1.13.10 4.2.7.2.686 [id number] [facility] 2024-04-08 00:00:00 2024-04-08 00:00:00 Outpatient MARLINL JOANNE DORMAN [id number] [facility] 2024-03-12 00:00:00 2024-03-12 00:00:00 Outpatient JOANNE MONTES [id number] [facility] 2024-03-06 11:00:00 2024-03-06 11:00:00 Outpatient JYOTI, JOANNE DORMAN [id number] [facility] 2024-02-06 11:00:00 2024-02-06 11:00:00 Outpatient JO GISELLE KELLEE DORMAN [id number] [facility] 2024-02-06 10:40:00 2024-02-06 10:40:00 Outpatient KELLEE DORMAN [id number] [facility] 2024-02-06 00:00:00 2024-02-06 00:00:00 Outpatient JOANNE MONTES [id number] [facility] 2024-02-05 00:00:00 2024-02-05 00:00:00 Outpatient MARLINLJOANNE [id number] [facility] 2024-01-14 09:30:00 2024-01-14 09:30:00 Outpatient JOANNE MONTES [id number] [facility] 2024-01-09 00:00:00 2024-01-09 00:00:00 Outpatient JOANNE MONTES [id number] [facility] 2024-01-06 00:00:00 2024-01-06 00:00:00 Outpatient JOANNE MONTESSEY [id number] [facility] Sey[facility]beck 2024-01-03 00:00:00 2024-01-03 00:00:00 Outpatient JOANNE MONTES KELLEE DORMAN [id number] [facility] Ariasybold 2024-01-02 14:00:00 2024-01-02 14:00:00 Outpatient JOANNE MONTES KELLEE DORMAN [id number] [facility] Sey[facility] 2023-12-13 09:30:00 2023-12-13 09:30:00 Outpatient HUNDLee, JOANNE KELLEE DORMAN [id number] [facility] 2023-12-09 00:00:00 2023-12-09 00:00:00 Outpatient JYOTI, JOANNE [facility]E DORMAN [id number] [facility] 2023-12-05 00:00:00 2023-12-05 00:00:00 Outpatient JYOTI, JOANNE KELLEE DORMAN [id number] [facility] 2023-12-03 11:45:00 2023-12-03 11:45:00 Outpatient LAB90 KELLEE DORMAN [id number] [facility] Seybold 2023-12-03 11:00:00 2023-12-03 11:00:00 Outpatient JOANNE MONTES KELLEE DORMAN [id number] [facility] 2023-11-26 00:00:00 2023-11-26 00:00:00 Outpatient JYOTI JOANNE DORMAN [id number] [facility] Seybold 2023-10-31 00:00:00 2023-10-31 00:00:00 Outpatient GIEFRAIN DORMAN [id number] [facility] Seybold 2023-10-31 00:00:00 2023-10-31 00:00:00 Outpatient GIEFRAIN DORMAN [id number] [facility] Seybold 2023-10-29 14:15:00 2023-10-29 14:15:00 Outpatient LAB90 KELLEE DORMAN [id number] [facility] Seybold 2023-10-29 13:30:00 2023-10-29 13:30:00 Outpatient JOANNE MONTES KELLEE DORMAN [id number] Kelele Seybold 2023-10-10 21:31:00 2023-10-11 00:43:00 Emergency X OLIVIA GARCIA [facility] ERT [id number] [facility] 2023-10-10 21:31:00 2023-10-11 00:43:00 Emergency Olivia Garcia [facility] 1.2.840.114 350.1.13.10 4.2.7.2.686 [id number] [facility] 2023-08-31 18:02:00 2023-08-31 22:40:00 Emergency ER SHERIDAN MCMANUS [facility] [id number] [facility] 2023-08-31 18:02:00 2023-08-31 22:40:00 emergency [facility] [id number] 2023-07-01 19:50:00 2023-07-01 22:59:00 Emergency X ROBERTO RICHARDS [facility] ERT [id number] [facility] 2023-07-01 19:50:00 2023-07-01 22:59:00 Emergency Roberto Richards [facility] 1.2.840.114 350.1.13.10 4.2.7.2.686 [id number] [facility] 2023-06-04 23:37:00 2023-06-06 13:30:00 Inpatient ER JOSIEMONICA SHAN [facility] [id number] [facility] 2023-06-04 23:37:00 2023-06-06 13:30:00 observatio n encounter [facility] [id number] 2023-05-11 01:16:00 2023-05-13 17:04:00 Inpatient ER RIDDHI MYLES [facility] [id number] [facility] 2023-05-11 01:16:00 2023-05-13 17:04:00 observatio ami clair [facility] [id number] [id number] 2023-05-10 21:48:00 2023-05-10 21:48:00 Emergency ER AN IRIZARRY [facility] [id number] [facility] 2023-05-09 17:40:00 2023-05-09 20:30:00 Emergency X NARAYAN NARVAEZ [facility] ERT [id number] [facility] 2023-05-09 17:40:00 2023-05-09 20:30:00 Emergency Narayan Narvaez [facility] 1.2.840.114 350.1.13.10 4.2.7.2.686 [id number] [facility] 2023-05-05 21:31:00 2023-05-06 03:15:00 Emergency ER SHERIDAN MCMANUS [facility] [id number] [facility] 2023-05-05 21:31:00 2023-05-06 03:15:00 emergency [facility] [id number] 2023-04-30 17:18:00 2023-04-30 21:20:00 Emergency NARAYAN MATA [facility] ERT [id number] [facility] 2023-04-30 17:18:00 2023-04-30 21:20:00 Emergency Narayan Narvaez [facility] 1.2.840.114 350.1.13.10 4.2.7.2.686 [id number] [facility] 2023-04-16 20:40:00 2023-04-16 23:10:00 Emergency X ROBERTO RICHARDS [facility] ERT [id number] [facility] 2023-04-16 20:40:00 2023-04-16 23:10:00 Emergency Roberto Richards [facility] 1.2.840.114 350.1.13.10 4.2.7.2.686 [id number] [facility] 2023-04-08 17:28:00 2023-04-08 21:20:00 Emergency X Saleem EDWARD [facility] ERT [id number] [facility] 2023-04-08 17:28:00 2023-04-08 21:20:00 Emergency Saleem Edward [facility] 1.2.840.114 350.1.13.10 4.2.7.2.686 [id number] [facility] 2023-03-09 20:23:00 2023-03-10 00:20:00 Emergency X ROBERTO RICHARDS [facility] ERT [id number] [facility] 2023-03-09 20:23:00 2023-03-10 00:20:00 Emergency Roberto Richards [facility] 1.2.840.114 350.1.13.10 4.2.7.2.686 [id number] [facility] 2023-03-01 19:35:00 2023-03-02 01:35:00 Emergency X OLIVIA GARCIA [facility] ERT [id number] [facility] 2023-03-01 19:35:00 2023-03-02 01:35:00 Emergency Olivia Garcia Raad [facility] 1.2.840.114 350.1.13.10 4.2.7.2.686 [id number] [facility] 2023-02-17 22:58:00 2023-02-18 02:22:00 Emergency X BRITTNI PADGETT [facility] ERT [id number] [facility] 2023-02-17 22:58:00 2023-02-18 02:22:00 Emergency Brittni Padgett [facility] 1.2.840.114 350.1.13.10 4.2.7.2.686 [id number] [facility] 2023-02-15 13:46:00 2023-02-17 16:14:00 Outpatient X PAM MONTEROLANI [facility] ALTHEA [id number] [facility] 2023-02-15 13:46:00 2023-02-17 16:14:00 Emergency Leeanne Wise Kylah [facility] 1.2.840.114 350.1.13.10 4.2.7.2.686 [id number] [facility] 2022-01-17 10:48:00 2022-01-17 10:48:00 Outpatient FERGUSON_RENETTA HOBSON PRMELANIE [facility] [id number] [facility] 2022-01-09 16:47:00 2022-01-09 20:28:00 Emergency X MELIDA LONGORIA [facility] ERT [id number] [facility] 2022-01-09 16:47:00 2022-01-09 20:28:00 Emergency Melida Longoria [facility] 1.2.840.114 350.1.13.10 4.2.7.2.686 [id number] [facility] 2021-12-13 22:16:00 2021-12-14 02:28:00 Emergency WIL SANCHEZ [facility] ERT [id number] [facility] 2021-12-13 22:16:00 2021-12-14 02:28:00 Emergency Wil Mcqueen [facility] 1.2.840.114 350.1.13.10 4.2.7.2.686 [id number] [facility] 2021-11-11 19:50:00 2021-11-11 23:17:00 Emergency X DEE WANG [facility] ERT [id number] [facility] 2021-11-11 19:50:00 2021-11-11 23:17:00 Emergency Dee Wang [facility] 1.2.840.114 350.1.13.10 4.2.7.2.686 [id number] [facility] 2021-11-11 00:00:00 2021-11-11 00:00:00 Orders Only Doctor Unassigned, [place] [facility] 1.2840.114 350.1.13.10 4.2.7.2.686 [id number] [facility] 2021-09-11 19:42:00 2021-09-11 23:02:00 Emergency X DEE WANG [facility] ERT [id number] [facility] 2021-09-11 19:42:00 2021-09-11 23:02:00 Emergency Dee Wang [facility] 1.2840.114 350.1.13.10 4.2.7.2.686 [id number] [facility] 2021-08-14 23:38:00 2021-08-15 02:29:00 Emergency X TRACYPAULYCHUY SONIARACHELLE [facility] ERT [id number] [facility] 2021-08-14 23:38:00 2021-08-15 02:29:00 Emergency Tracypaulychuy Soniarachelle Shankar [facility] 1.2840.114 350.1.13.10 4.2.7.2.686 [id number] [facility] 2021-05-27 23:23:00 2021-05-28 04:23:00 Emergency X CEM CHOI [facility] ERT [id number] [facility] 2021-05-27 23:23:00 2021-05-28 04:23:00 Emergency Cem Choi [facility] 1.2.840.114 350.1.13.10 4.2.7.2.686 [id number] [facility] 2021-04-10 00:00:00 2021-04-10 00:00:00 Transition of Care Ralph Shelley Riso 1.2.840.114 350.1.13.10 4.2.7.2.686 [id number] [facility] 2021-04-07 16:30:00 2021-04-08 17:45:00 Hospital Encounter Roberto Richards Jelani [facility] 1.2840.114 350.1.13.10 4.2.7.2.686 [id number] [facility] 2021-04-07 16:18:00 2021-04-07 16:18:00 Emergency X [facility] ERT [id number] [facility] 2021-01-12 03:01:00 2021-01-12 04:56:00 Emergency Narayan Narvaez [facility] 1.2840.114 350.1.13.10 4.2.7.2.686 [id number] [facility] 2021-01-12 03:01:00 2021-01-12 03:01:00 Emergency X NARAYAN [facility] ERT [id number] [facility] 2020-12-10 17:12:00 2020-12-10 21:14:00 Emergency Bal Hassan [facility] 1.2.840.114 350.1.13.10 4.2.7.2.686 [id number] 084 [id number] [facility] 2020-12-10 17:12:00 2020-12-10 17:12:00 Emergency X BAL HASSAN [facility] ERT [id number] [facility] 2020-12-04 14:50:00 2020-12-04 17:08:00 Emergency EbTremaine stratton [facility] 1.2.840.114 350.1.13.10 4.2.7.2.686 [id number] 084 [id number] [facility] 2020-12-04 14:50:00 2020-12-04 17:08:00 Emergency X TREMAINE BECERRA [facility] ERT [id number] [facility] 2020-11-03 20:44:00 2020-11-03 23:34:00 Emergency DreLeeanne almonte [facility] 1.2.840.114 350.1.13.10 4.2.7.2.686 [id number] 084 [id number] [facility] 2020-11-03 20:44:00 2020-11-03 23:34:00 Emergency X LEEANNE WISE [facility] ERT [id number] [facility] 2020-09-19 12:32:00 2020-09-19 14:15:00 Emergency ER OWWIL MathewS [facility] [id number] [facility] 2020-09-17 09:53:00 2020-09-17 11:55:00 Emergency DreLeeanne almonte [facility] 1.2.840.114 350.1.13.10 4.2.7.2.686 [id number] 084 [id number] 2020-09-17 09:53:00 2020-09-17 11:55:00 Emergency DreLeeanne almonte [facility] 1.2.840.114 350.1.13.10 4.2.7.2.686 [id number] 084 [id number] [facility] 2020-09-17 09:53:00 2020-09-17 11:55:00 Emergency X LEEANNE WISE [facility] ERT [id number] [facility] 2020-09-07 00:37:00 2020-09-07 01:41:00 Emergency Saleem Edward [facility] 1.2.840.114 350.1.13.10 4.2.7.2.686 [id number] 084 [id number] 2020-09-07 00:37:00 2020-09-07 01:41:00 Emergency Saleem Edward [facility] 1.2.840.114 350.1.13.10 4.2.7.2.686 [id number] 084 [id number] [facility] 2020-09-07 00:37:00 2020-09-07 01:41:00 Emergency X Saleem EDWARD [facility] ERT [id number] [facility] 2020-09-07 00:00:00 2020-09-07 00:00:00 Orders Only Doctor Unassigned, [place] [facility] 1.2.840.114 350.1.13.10 4.2.7.2.686 [id number] [id number] 2020-09-07 00:00:00 2020-09-07 00:00:00 Orders Only Doctor Unassigned, [place] [facility] 1.2.840.114 350.1.13.10 4.2.7.2.686 [id number] [id number] [facility] 2020-08-28 01:59:00 2020-08-28 04:40:00 Emergency Olivia Garcia [facility] 1.2.840.114 350.1.13.10 4.2.7.2.686 [id number] 084 [id number] 2020-08-28 01:59:00 2020-08-28 04:40:00 [facility] 1.2.840.114 350.1.13.10 4.2.7.2.686 [id number] 084 [id number] [facility] 2020-08-28 01:59:00 2020-08-28 01:59:00 Emergency OLIVIA WAYNE [facility] ERT [id number] [facility] 2020-08-14 11:48:00 2020-08-14 13:42:00 Emergency Best Taylor [facility] 1.2.840.114 350.1.13.10 4.2.7.2.686 [id number] 084 [id number] 2020-08-14 11:48:00 2020-08-14 13:42:00 Emergency Best Taylor [facility] 1.2.840.114 350.1.13.10 4.2.7.2.686 [id number] 084 [id number] [facility] 2020-08-14 11:33:00 2020-08-14 11:33:00 Emergency X BEST TAYLOR [facility] ERT [id number] [facility] 2020-08-10 18:35:00 2020-08-11 00:05:00 [facility] 1.2.840.114 350.1.13.10 4.2.7.2.686 [id number] 084 [id number] 2020-08-10 18:35:00 2020-08-11 00:05:00 Emergency Best Taylor Wakili [facility] 1.2.840.114 350.1.13.10 4.2.7.2.686 [id number] 084 [id number] [facility] 2020-08-10 18:35:00 2020-08-11 00:05:00 Emergency X OLIVIA GARCIA [facility] ERT [id number] [facility] 2020-08-07 07:19:00 2020-08-07 09:02:00 Emergency Roberto Richards [facility] 1.2.840.114 350.1.13.10 4.2.7.2.686 [id number] 084 [id number] 2020-08-07 07:19:00 2020-08-07 09:02:00 Emergency Roberto Richards [facility] 1.2.840.114 350.1.13.10 4.2.7.2.686 [id number] 084 [id number] [facility] 2020-08-07 07:12:00 2020-08-07 07:12:00 Emergency X [facility] ERT [id number] [facility] 2020-08-07 00:00:00 2020-08-07 00:00:00 Orders Only Doctor Unassigned, [place] [facility] 1.2.840.114 350.1.13.10 4.2.7.2.686 [id number] [id number] 2020-08-07 00:00:00 2020-08-07 00:00:00 Orders Only Doctor Unassigned, [place] [facility] 1.2.840.114 350.1.13.10 4.2.7.2.686 [id number] [id number] [facility] 2020-07-01 00:00:00 2020-07-01 00:00:00 Letter (Out) SallieMarbella cruz [facility] 1.2.840.114 350.1.13.10 4.2.7.2.686 [id number] 2020-07-01 00:00:00 2020-07-01 00:00:00 [facility] ([facility] 1.2.840.114 350.1.13.10 4.2.7.2.686 [id number] [facility] 2020-06-30 17:46:00 2020-06-30 21:06:00 Emergency Abdias Robertson [facility] 1.2.840.114 350.1.13.10 4.2.7.2.686 [id number] 084 [id number] 2020-06-30 17:46:00 2020-06-30 21:06:00 Emergency Abdias Robertson [facility] 1.2.840.114 350.1.13.10 4.2.7.2.686 [id number] 084 [id number] [facility] 2020-06-30 17:46:00 2020-06-30 21:06:00 Emergency X ABDIAS ROBERTSON [facility] ERT [id number] [facility] 2020-06-28 16:00:00 2020-06-28 18:08:00 Emergency Singer [facility] 1.2.840.114 350.1.13.10 4.2.7.2.686 [id number] 084 [id number] 2020-06-28 16:00:00 2020-06-28 18:08:00 Emergency Singer [facility] 1.2.840.114 350.1.13.10 4.2.7.2.686 [id number] [id number] [facility] 2020-06-28 16:00:00 2020-06-28 16:00:00 Emergency NARAYAN MATA [facility] ERT [id number] [facility] 2020-06-14 00:00:00 2020-06-14 00:00:00 Telephone [facility] 1.2.840.114 350.1.13.10 4.2.7.2.686 [id number] 019 [id number] 2020-06-14 00:00:00 2020-06-14 00:00:00 Telephone [facility] 1.2.840.114 350.1.13.10 4.2.7.2.686 [id number] [id number] [facility] 2020-06-12 17:40:00 2020-06-12 22:05:00 Emergency Leeanne Wise [facility] 1.2.840.114 350.1.13.10 4.2.7.2.686 [id number] 084 [id number] 2020-06-12 17:40:00 2020-06-12 22:05:00 Emergency Leeanne Wise [facility] 1.2.840.114 350.1.13.10 4.2.7.2.686 [id number] [id number] [facility] 2020-06-12 17:28:00 2020-06-12 17:28:00 Emergency X [facility] ERT [id number] [facility] 2020-05-16 17:10:00 2020-05-16 19:01:00 Emergency Bushra Rios [facility] 1.2.840.114 350.1.13.10 4.2.7.2.686 [id number] 084 [id number] 2020-05-16 17:10:00 2020-05-16 19:01:00 Emergency Bushra Rios [facility] 1.2.840.114 350.1.13.10 4.2.7.2.686 [id number] 084 [id number] [facility] 2020-05-16 17:10:00 2020-05-16 17:10:00 Emergency X BUSHRA RIOS ROMINA ERT [id number] [facility] 2020-05-14 23:18:00 2020-05-15 02:54:00 Emergency Roberto Richards [facility] 1.2.840.114 350.1.13.10 4.2.7.2.686 [id number] 084 [id number] 2020-05-14 23:18:00 2020-05-15 02:54:00 Emergency Roberto Richards [facility] 1.2.840.114 350.1.13.10 4.2.7.2.686 [id number] 084 [id number] [facility] 2020-05-14 23:14:00 2020-05-14 23:14:00 Emergency X ROBERTO RICHARDS [facility] ERT [id number] [facility] 2009-07-18 05:35:00 2009-07-18 09:19:00 Emergency ER SINCERE FRANK [facility] [id number] [facility] 2008-10-08 09:55:00 2008-10-08 14:19:00 Emergency ER GUMARO ALVAREZ [facility] [id number] [facility] 2008-03-26 15:21:00 2008-03-26 18:08:00 Emergency ER NEIL WILKINS [facility] [id number] [facility] 2005-05-25 06:35:00 2005-05-25 06:35:00 Outpatient LISA LUNA [facility] [id number] [facility] 2005-05-16 21:57:00 2005-05-16 23:40:00 Emergency ER JW SOLORZANO [facility] [id number] [facility] 2005-04-24 18:49:00 2005-04-24 22:40:00 Emergency ER JW SOLORZANO [facility] [id number] [facility] 2004-12-27 20:30:00 2004-12-28 01:40:00 Emergency ER SANIA SIBLEY [facility] [id number] [facility] 2003-12-07 22:40:00 2003-12-08 02:48:00 Emergency ER GINA MARTIN [facility] [id number] [facility] 2003-12-06 13:57:00 2003-12-06 18:30:00 Emergency ER YIN RIOS [facility] [id number] [facility] 2003-08-31 19:43:00 2003-08-31 22:55:00 Emergency ER GUMARO ALVAREZ [facility] [id number] [facility] 2003-08-22 19:26:00 2003-08-22 22:10:00 Emergency ER ALBERTO CASTLE [facility] [id number] [facility] 2002-01-30 22:41:00 2002-01-31 01:29:00 Emergency ER ANTHONY SCHNEIDER [facility] [id number] [facility] 2001-10-28 09:15:00 2001-10-28 11:25:00 Emergency ER DARCIE MCKEON [facility] [id number] [facility] 2001-04-15 19:14:00 2001-04-15 23:10:00 Emergency ER ARLETTE ROBERT [facility] [id number] [facility] 2000-12-25 21:52:00 2000-12-26 00:15:00 Emergency ER GISELA RIOS [facility] [id number] [facility] 2000-12-23 18:51:00 2000-12-23 22:00:00 Emergency ER HUGO COFFMAN [facility] [id number] [facility] 1999-10-26 21:11:00 1999-10-27 00:20:00 Emergency ER JW SOLORZANO [facility] [id number] [facility] Results Test Description Test Time Test Comments Results Result Comments Source CT Chest pulmonary angiogram 06:33:58 Exam: CT Angiography Chest with Contrast, 07/18/2024 11:00 PM. Ordering Physician: Saleem EDWARD. History: PE suspected, high pretest prob . Comparison: Same day chest radiograph. Technique: CT angiography chest was performed with intravenous contrast. 3DMIP images were rendered. CT was performed according to ALARA (As Low AsReasonably Achievable). Technical Quality: Adequate. Findings: Lower neck: The visualized thyroid is unremarkable. Pulmonary Arteries: There is no evidence of pulmonary embolus. Centralpulmonary arteries are dilated which can be seen in the setting of chronicpulmonary artery hypertension. ? Pulmonary: No pleural effusion. No focal consolidation or pulmonary mass.There is peribronchovascular groundglass most pronounced in the left upperlobe. No suspicious pulmonary nodule. Mild bibasilar atelectasis. Thecentral airways are patent. Cardiomediastinal: Normal heart size. No pericardial effusion. Normalcaliber of the aorta. No pathologically enlarged lymph nodes. 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 Osseous: No acute osseous finding. [facility] CT Abdomen pelvis w contrast 06:50:04 Exam: [...] ?There is nopelvic adenopathy. Osseous/Soft Tissues: [facility]remarkable. [facility] [id number] 04:06:42* Test Item Value Reference Range Interpretation Comme nts NA (test code = 0133053079) 139 mmol/L 135-145 K (test code = 6746858585) 3.5 mmol/L 3.5-5.0 CL (test code = 0240531133) 105 mmol/L 98-108 CO2 TOTAL (test code = 6955166400) 26 mmol/L 23-31 AGAP (test code = 2057439840) 8 2-16 BUN (test code = 5932534650) 5 mg/dL 7-23 L GLUCOSE (test code = 3151276824) 101 mg/dL 70-110 CREATININE (test code = 2160-0) 0.58 mg/dL 0.50-1.04 TOTAL BILI (test code = 2955938295) 0.1-1.1 L CALCIUM (test code = 4639255942) 9.3 mg/dL 8.6-10.6 T PROTEIN (test code = 7734709394) 6.8 g/dL 6.3-8.2 ALBUMIN (test code = 5243181056) 3.9 g/dL 3.5-5.0 ALK PHOS (test code = 1548831012) 74 U/L 34-122 ALTv (test code = 1742-6) 17 U/L 5-35 AST(SGOT) (test code = 5813003921) 28 U/L 13-40 eGFR (test code = 19595-8) 113.9 mL/min/1.73m2 CKD-EPI eGFR (2020). Assuming creatinine has been stable day-to-day for at least three months, the eGFR indicates Category G1 (>= 90 mL/min/1.73 m2) Lab Interpretation (test code = 27705-2) Abnormal [facility], [id number] 04:01:05* Test Item Value Reference Range Interpretation Comme nts LIPASE (test code = 6019461739) 80 U/L 0-220 Lab Interpretation (test cod e = 76674-3) Normal [facility] with [id number] 03:46:26* Test Item Value Reference Range Interpretation [...] 33.2 g/dL 31.6-35.1 RDW-SD (test code = 44931-7) 42.5 fL 39.0-49.9 RDW-CV (test code = 788-0) 14.6 % 12.0-15.5 PLT (test code = 777-3) 327 166-358 MPV (test code = 47290-3) 9.3 fL 9.5-12.9 L NRBC/100 WBC (test code = 4107093915) 0.0 0.0-10.0 NRBC x10^3 (test code = 0809582804) See_Comment [Automated messa ge] The system which generated this result transmitted reference range: 10*3/?L. The reference range was not used to interpret this result as normal/abnormal. GRAN MAT (NEUT) % (test code = 770-8) 65.7 % IMM GRAN % (test code = 5008829843) 0.50 % LYMPH % (test code = 736-9) 26.4 % MONO % (test code = 5905-5) 5.6 % EOS % (test code = 713-8) 1.4 % BASO % (test code = 706-2) 0.4 % GRAN MAT x10^3(ANC) (test code = 1469278926) 8.21 10*3/uL 1.88-7.09 H IMM GRAN x10^3 (test code = 9936843391) 0.06 10*3/uL 0.00-0.06 LYMPH x10^3 (test code = 731-0) 3.30 10*3/uL 1.32-3.29 H MONO x10^3 (test code = 742-7) 0.70 10*3/uL 0.33-0.92 EOS x10^3 (test code = 711-2) 0.17 10*3/uL 0.03-0.39 BASO x10^3 (test code = 704-7) 0.05 10*3/uL 0.01-0.07 Lab Interpretation (test code = 37630-3) Abnormal [facility] Abdom[facility] pelvis w [id number] 05:39:04CT ABDOMEN PELVIS W CONTRAST HISTORY: 44 [...] TISSUES: No suspicious lytic or sclerotic bony lesions.[facility]. Metabolic Panel (81132)2024-06-15 05:12:33* Test Item Value Reference Range Interpretation Comme nts NA (test code = 9653754711) 139 mmol/L 135-145 K (test code = 2327170692) 3.7 mmol/L 3.5-5.0 CL (test code = 6728812261) 109 mmol/L 98-108 H CO2 TOTAL (test code = 6788858737) 23 mmol/L 23-31 AGAP (test code = 8595314782) 7 2-16 BUN (test code = 2724779251) 6 mg/dL 7-23 L GLUCOSE (test code = 0913929695) 101 mg/dL 70-110 CREATININE (test code = 2160-0) 0.67 mg/dL 0.50-1.04 TOTAL BILI (test code = 9919968726) 0.1-1.1 L CALCIUM (test code = 5917747544) 9.4 mg/dL 8.6-10.6 T PROTEIN (test code = 1835748872) 7.0 g/dL 6.3-8.2 ALBUMIN (test code = 5833312224) 4.0 g/dL 3.5-5.0 ALK PHOS (test code = 6437143727) 87 U/L 34-122 ALTv (test code = 1742-6) 28 U/L 5-35 AST(SGOT) (test code = 0966938795) 24 U/L 13-40 eGFR (test code = 31033-5) 110.0 mL/min/1.73m2 CKD-EPI eGFR (2020). Assuming creatinine has been stable day-to-day for at least three months, the eGFR indicates Category G1 (>= 90 mL/min/1.73 m2) Lab Interpretation (test code = 22330-9) Abnormal [facility]entonLindan [id number] 05:03:33* Test Item Value Reference Range Interpretation Comme nts TROPONIN I (test code = 8169433586) 0.000 ng/mL <=0.034 DARWIN (test code = [...] of biotin. Lab Interpretation (test code = 15450-7) Normal [facility]entonLipase2024-12-09 04:51:35* Test Item Value Reference Range Interpretation Comme nts LIPASE (test code = 3154195108) 94 U/L 0-220 Lab Interpretation (test cod e = 46505-3) Normal [facility] DentonPregnancy Test, [id number] 04:51:30* Test Item Value Reference Range Interpretation Comme nts PREG SERUM (test code = 3954921830) Negative DARWIN (test code = DARWIN) Less than 10 IU/L. ?If low titer or ectopic is suspected, resubmit specimen in 48-72 hours. [facility] DentonCb with [id number] 04:36:57* Test Item Value Reference Range Interpretation [...] 32.9 g/dL 31.6-35.1 RDW-SD (test code = 06428-1) 44.3 fL 39.0-49.9 RDW-CV (test code = 788-0) 15.0 % 12.0-15.5 PLT (test code = 777-3) 347 166-358 MPV (test code = 53036-3) 9.4 fL 9.5-12.9 L NRBC/100 WBC (test code = 0470337072) 0.0 0.0-10.0 NRBC x10^3 (test code = 6747159135) See_Comment [Automated messa ge] The system which generated this result transmitted reference range: 10*3/?L. The reference range was not used to interpret this result as normal/abnormal. GRAN MAT (NEUT) % (test code = 770-8) 60.2 % IMM GRAN % (test code = 8344098038) 0.40 % LYMPH % (test code = 736-9) 31.3 % MONO % (test code = 5905-5) 5.8 % EOS % (test code = 713-8) 1.8 % BASO % (test code = 706-2) 0.5 % GRAN MAT x10^3(ANC) (test code = 6979625009) 6.36 10*3/uL 1.88-7.09 IMM GRAN x10^3 (test code = 4978574457) 0.04 10*3/uL 0.00-0.06 LYMPH x10^3 (test code = 731-0) 3.30 10*3/uL 1.32-3.29 H MONO x10^3 (test code = 742-7) 0.61 10*3/uL 0.33-0.92 EOS x10^3 (test code = 711-2) 0.19 10*3/uL 0.03-0.39 BASO x10^3 (test code = 704-7) 0.05 10*3/uL 0.01-0.07 Lab Interpretation (test code = 12360-4) Abnormal [facility] DentonTroponin [id number] 07:55:17* Test Item Value Reference Range Interpretation Comme nts TROPONIN I (test code = 1444269607) 0.000 ng/mL <=0.034 DARWIN (test code = [...] of biotin. Lab Interpretation (test code = 61946-3) Normal [facility]XR CHEST 1 [id number] 06:16:28Exam: Chest (1 View), 06/06/2024 11:30 PM. Ordering Physician: OLIVIA GARCIA. History: Chest pain. Technique: AP view of the chest. Technical Quality: Adequate. Comparison: Chest radiograph 05/17/2024. Findings: Normal cardiac silhouette size. ?No airspace consolidation, pleuraleffusion, or pneumothorax. No acute osseous abnormality.[facility] DentonPONV [id number] 05:19:00* Test Item Value Reference Range Interpretation Comme nts POCT PREG (test code = 1605) Negative On board controls acceptable with C Line (test code = 3574) Yes POCT PREG LOT # (test code = 3575) [id number] POCT PREG TEST DATE ( test code = 3576) 04/11/2025 Lab Interpretation (test cod e = 57498-8) Normal [facility] DentonTroponin [id number] 05:00:24* Test Item Value Reference Range Interpretation Comme nts TROPONIN I (test code = 1885292021) 0.000 ng/mL <=0.034 DARWIN (test code = [...] of biotin. Lab Interpretation (test code = 40725-1) Normal [facility]. Metabolic Panel (02152)2024-06-07 05:00:19* Test Item Value Reference Range Interpretation Comme nts NA (test code = 0896590042) 139 mmol/L 135-145 K (test code = 0468258035) 3.6 mmol/L 3.5-5.0 CL (test code = 5691991058) 108 mmol/L 98-108 CO2 TOTAL (test code = 7256525677) 22 mmol/L 23-31 L AGAP (test code = 9363836158) 9 2-16 BUN (test code = 5923736647) 10 mg/dL 7-23 GLUCOSE (test code = 9943908347) 144 mg/dL 70-110 H CREATININE (test code = 2160-0) 0.62 mg/dL 0.50-1.04 TOTAL BILI (test code = 2810585136) 0.1-1.1 L CALCIUM (test code = 9047230281) 9.2 mg/dL 8.6-10.6 T PROTEIN (test code = 6296000705) 6.5 g/dL 6.3-8.2 ALBUMIN (test code = 2267783910) 3.7 g/dL 3.5-5.0 ALK PHOS (test code = 0142346594) 69 U/L 34-122 ALTv (test code = 1742-6) 14 U/L 5-35 AST(SGOT) (test code = 5371485657) 15 U/L 13-40 eGFR (test code = 69470-3) 112.1 mL/min/1.73m2 CKD-EPI eGFR (2020). Assuming creatinine has been stable day-to-day for at least three months, the eGFR indicates Category G1 (>= 90 mL/min/1.73 m2) Lab Interpretation (test code = 66824-0) Abnormal [facility] with [id number] 04:38:25* Test Item Value Reference Range Interpretation [...] 32.8 g/dL 31.6-35.1 RDW-SD (test code = 34358-5) 44.1 fL 39.0-49.9 RDW-CV (test code = 788-0) 14.9 % 12.0-15.5 PLT (test code = 777-3) 358 166-358 MPV (test code = 72833-4) 9.4 fL 9.5-12.9 L NRBC/100 WBC (test code = 2137943975) 0.0 0.0-10.0 NRBC x10^3 (test code = 1142677054) See_Comment [Automated [place] ge] The system which generated this result transmitted reference range: 10*3/?L. The reference range was not used to interpret this result as normal/abnormal. GRAN MAT (NEUT) % (test code = 770-8) 58.2 % IMM GRAN % (test code = 0406278613) 0.40 % LYMPH % (test code = 736-9) 34.1 % MONO % (test code = 5905-5) 4.7 % EOS % (test code = 713-8) 2.3 % BASO % (test code = 706-2) 0.3 % GRAN MAT x10^3(ANC) (test code = 3042166855) 5.33 10*3/uL 1.88-7.09 IMM GRAN x10^3 (test code = 9340212282) 0.04 10*3/uL 0.00-0.06 LYMPH x10^3 (test code = 731-0) 3.12 10*3/uL 1.32-3.29 MONO x10^3 (test code = 742-7) 0.43 10*3/uL 0.33-0.92 EOS x10^3 (test code = 711-2) 0.21 10*3/uL 0.03-0.39 BASO x10^3 (test code = 704-7) 0.03 10*3/uL 0.01-0.07 Lab Interpretation (test code = 82732-5) [facility]normal [facility] WO [id number] 18:53:41EXAM: CT HEAD WO CONTRAST HISTORY: 44 [...] clear. Thecalvarium and central skull base are unremarkable.[facility] FOREARM 2 VW [id number] 04:08:39EXAM: XR HAND 3+ VW RIGHT, XR [...] No radiopaqueforeign body. Mild diffuse soft tissue swelling.[facility]+ VW [id number] 04:08:39EXAM: XR HAND 3+ VW RIGHT, XR [...] No radiopaqueforeign body. Mild diffuse soft tissue swelling.[facility]XR ELBOW <3 VW [id number] 04:08:39EXAM: XR HAND 3+ VW RIGHT, XR [...] radiopaqueforeign body. Mild diffuse soft tissue swelling. [facility] [place] MAXILLOFACIAL/MANDIBLE WO CONTRAST 2024-05-18 03:36:27ORDERING PHYSICIAN:ALESHA ?ELMOERHETRACY CLINICAL INFORMATION: ? Facial trauma, blunt COMPARISON: [...] no evidence of retrobulbar hematomas or retroconal fatstranding.[facility] CERVICAL SPINE WO CONTRAST 2024-05-18 03:28:19ORDERING PHYSICIAN: ? ALESHA ?ELMOERHEIDE HISTORY: Neck trauma, dangerous injury mechanism (Age [...] tissues arenormal. The visualized lung apices are clear.[facility] [place]ONV [id number] 02:00:00* Test Item Value Reference Range Interpretation Comme nts POCT PREG (test code = 1605) Negative On board controls acceptable with C Line (test code = 3574) Yes Lab Interpretation (test cod e = 37851-8) Normal [facility]. Metabolic Panel (00942)2024-05-08 01:19:56* Test Item Value Reference Range Interpretation Comme nts NA (test code = 4718729503) 139 mmol/L 135-145 K (test code = 2053557540) 3.3 mmol/L 3.5-5.0 L CL (test code = 4702162017) 107 mmol/L 98-108 CO2 TOTAL (test code = 1243779197) 22 mmol/L 23-31 L AGAP (test code = 9912837458) 10 2-16 BUN (test code = 9339560538) 5 mg/dL 7-23 L GLUCOSE (test code = 9895982828) 131 mg/dL 70-110 H CREATININE (test code = 2160-0) 0.72 mg/dL 0.50-1.04 TOTAL BILI (test code = 4199723443) 0.1-1.1 L CALCIUM (test code = 6775553042) 9.3 mg/dL 8.6-10.6 T PROTEIN (test code = 0257786702) 7.0 g/dL 6.3-8.2 ALBUMIN (test code = 6498430919) 4.1 g/dL 3.5-5.0 ALK PHOS (test code = 2452579922) 76 U/L 34-122 ALTv (test code = 1742-6) 27 U/L 5-35 AST(SGOT) (test code = 9646166459) 30 U/L 13-40 eGFR (test code = 98553-4) 105.2 mL/min/1.73m2 CKD-EPI eGFR (2020). Assuming creatinine has been stable day-to-day for at least three months, the eGFR indicates Category G1 (>= 90 mL/min/1.73 m2) Lab Interpretation (test code = 63078-5) Abnormal [facility] [place]enton[facility]roponin [id number] 01:18:54* Test Item Value Reference Range Interpretation Comme nts TROPONIN I (test code = 8734103087) 0.003 ng/mL <=0.034 DARWIN (test code = [...] of biotin. Lab Interpretation (test code = 29956-3) Normal [facility] [place]entonMagnesium2024-11-01 01:07:50* Test Item Value Reference Range Interpretation Comme nts MAGNESIUM (test code = 0643992879) 1.7 mg/dL 1.7-2.4 Lab Interpretation (test cod e = 78021-4) Normal [facility] [facility]ase[facility] 01:07:30* Test Item Value Reference Range Interpretation Comme nts LIPASE (test code = 3023632245) 97 U/L 0-220 Lab Interpretation (test cod e = 98880-9) Normal [facility]enton[facility]b with Sfgx9515-98-53 00:51:30* Test Item Value Reference Range Interpretation [...] 33.2 g/dL 31.6-35.1 RDW-SD (test code = 08156-5) 43.6 fL 39.0-49.9 RDW-CV (test code = 788-0) 14.8 % 12.0-15.5 PLT (test code = 777-3) 382 166-358 H MPV (test code = 23352-0) 9.7 fL 9.5-12.9 NRBC/100 WBC (test code = 2022997443) 0.0 0.0-10.0 NRBC x10^3 (test code = 6818998089) See_Comment [Automated messa ge] The system which generated this result transmitted reference range: 10*3/?L. The reference range was not used to interpret this result as normal/abnormal. GRAN MAT (NEUT) % (test code = 770-8) 63.3 % IMM GRAN % (test code = 9871431310) 0.40 % LYMPH % (test code = 736-9) 27.5 % MONO % (test code = 5905-5) 5.4 % EOS % (test code = 713-8) 2.9 % BASO % (test code = 706-2) 0.5 % GRAN MAT x10^3(ANC) (test code = 0497516432) 7.25 10*3/uL 1.88-7.09 H IMM GRAN x10^3 (test code = 7781893251) 0.05 10*3/uL 0.00-0.06 LYMPH x10^3 (test code = 731-0) 3.15 10*3/uL 1.32-3.29 MONO x10^3 (test code = 742-7) 0.62 10*3/uL 0.33-0.92 EOS x10^3 (test code = 711-2) 0.33 10*3/uL 0.03-0.39 BASO x10^3 (test code = 704-7) 0.06 10*3/uL 0.01-0.07 Lab Interpretation (test code = 96266-6) Abnormal [facility] or plasma cardiac troponin I panel by high sensitivity avakzh6728-45-51 17:16:00* Test Item Value Reference Range Interpretation Comme nts Troponin T High Sensitivity (test code = 86641-0) < 6.0 [facility] CtrSerum or plasma glucose measurement (mass/volume) 2024-04-10 17:14:00* Test Item Value Reference Range Interpretation Comme nts Random Glucose (test code = 2345-7) 109 [facility] CtrSerum or plasma urea nitrogen measurement (mass/volume)2024-04-10 17:14:00* Test Item Value Reference Range Interpretation Comme nts Blood Urea Nitrogen (test co de = 3094-0) 4 [facility] RefECC8331-77-58 17:14:00* Test Item Value Reference Range Interpretation Comme nts Aspartate Amino Transf (AST/ SGOT) (test code = CDW3845) 14 [facility] CtrBilirubin ittav5772-40-62 17:14:00* Test Item Value Reference Range Interpretation Comme nts Total Bilirubin (test code = IYA1993) < 0.2 [facility] CtrEstimated glomerular filtration rate (GFR) ynriatzvfmwne8715-20-11 17:14:00* Test Item Value Reference Range Interpretation Comme nts Glomerular Filtration Rate C alc (test code = 461730052) > 60.00 [facility] CtrBUN/creatinine dpswa2625-17-09 17:14:00* Test Item Value Reference Range Interpretation Comme nts BUN/Creatinine Ratio (test c ode = 25744957) 7.3 [facility] RphQT73716-45-82 17:14:00* Test Item Value Reference Range Interpretation Comme nts Carbon Dioxide Level (test c ode = 05590699) 22 [facility] CtrAnion gap ctpeptatnol5286-56-86 17:14:00* Test Item Value Reference Range Interpretation Comme nts Anion Gap (test code = 99515741) 16.6 [facility] CtrCalcium mqfth1389-98-64 17:14:00* Test Item Value Reference Range Interpretation Comme nts Calcium Level (test code = 70792430) 9.9 [facility] CtrGlobulin tnj8663-47-45 17:14:00* Test Item Value Reference Range Interpretation Comme nts Globulin (test code = 418770671) 3.1 [facility] CtrALT (SGPT) ser/eqos4529-41-73 17:14:00* Test Item Value Reference Range Interpretation Comme nts Alanine Aminotransferase (AL T/SGPT) (test code = 1742-6) 10 [facility] CtrAmylase mpmaz0618-68-62 17:14:00* Test Item Value Reference Range Interpretation Comme nts Amylase Level (test code = 1798-8) 48 [facility] ZpdWqqsvg2819-37-80 17:14:00* Test Item Value Reference Range Interpretation Comme nts Lipase (test code = 58806051) 24 [facility] CtrALP ser/qeak8497-13-05 17:14:00* Test Item Value Reference Range Interpretation Comme nts Total Alkaline Phosphatase ( test code = 6768-6) 92 [facility] CtrAmphetamine ur mxvfbk5912-45-69 17:13:00* Test Item Value Reference Range Interpretation Comme nts Urine Amphetamines Screen (t est code = 36629-5) NEGATIVE [facility] UhkCgpzttzde8578-71-74 17:13:00* Test Item Value Reference Range Interpretation Comme nts Methadone Level (test code = OUJ4673) NEGATIVE [facility] CtrBenzodiazepines screen fl4656-57-29 17:13:00* Test Item Value Reference Range Interpretation Comme [facility] Urine Benzodiazepines Screen (test code = 513138981) POSITIVE [facility] CtrCannabinoids (4-owbmiaw-NDZ) lqgtytdejgl1053-14-33 17:13:00* Test Item Value Reference Range Interpretation Comme [facility] Urine Cannabinoids (test cod e = 538998516) NEGATIVE [facility] CtrCocaine metabolite necavw6843-13-09 17:13:00* Test Item Value Reference Range Interpretation Comme [facility] Urine Cocaine Metabolite (te st code = 737484210) NEGATIVE [facility] CtrOpiates dunge0731-56-15 17:13:00* Test Item Value Reference Range Interpretation Comme [facility] Urine Opiates Screen (test c ode = 549303256) NEGATIVE [facility] CtrUrine hydrocodone measurement (mass/volume) 2024-04-10 17:13:00* Test Item Value Reference Range Interpretation Comme nts Hydrocodone Level (test code = 3681-4) NEGATIVE [facility] CtrUrine fentanyl measurement by confirmatory method (mass/volume)2024-04-10 17:13:00* Test Item Value Reference Range Interpretation Comme [facility] Urine Fentanyl Screen (test code = 46120-7) NEGATIVE [facility] CtrPhencyclidine (PCP) yu2140-21-10 17:13:00* Test Item Value Reference Range Interpretation Comme [facility] Urine Phencyclidine (PCP) [place] (test code = 672138439) NEGATIVE [facility] CtrPropoxyphene [Mass/volume] in Uyhgy0715-20-10 17:13:00* Test Item Value Reference Range Interpretation Comme nts Propoxyphene Level (test cod e = 3545-1) NEGATIVE [facility] CtroxyCODONE [Mass/volume] in Kvjga3742-55-43 17:13:00* Test Item Value Reference Range Interpretation Comme nts Oxycodone Level (test code = 99700-6) NEGATIVE [facility] CtrUrine leukocyte esterase bxafrcjfr0837-41-98 17:10:00* Test Item Value Reference Range Interpretation Comme nts Urine Leukocyte Esterase (te st code = 295395655) 3+ [facility] CtrRBC count ur nnog1118-23-89 17:08:00* Test Item Value Reference Range Interpretation Comme nts Urine RBC (test code = 798-9) 0-2 [facility] CtrUrine examination for white blood cells (WBC) 2024-04-10 17:08:00* Test Item Value Reference Range Interpretation Comme nts Urine WBC (test code = 020924265) >100 [facility] CtrAutomated epithelial cells count in urine sediment (number/area)2024-04-10 17:08:00* Test Item Value Reference Range Interpretation Comme nts Urine Epithelial Cells (test code = 68605-4) 6-10 [facility] CtrBacteria detection in urine sediment by light xgasfqwzns4475-93-23 17:08:00* Test Item Value Reference Range Interpretation Comme nts Urine Bacteria (test code = 95002-5) Few [facility] detection by automated method 2024-04-10 17:08:00* Test Item Value Reference Range Interpretation Comme nts Urine Casts (test code = 10281-4) 0-2 [facility] CtrUrine blood tzwsgezsv8170-73-93 17:03:00* Test Item Value Reference Range Interpretation Comme nts Urine Blood (test code = 22879-6) Nonhemolyzed Trace [facility] CtrpH av6053-77-98 17:03:00* Test Item Value Reference Range Interpretation Comme nts Urine pH (test code = 2756-5) 6.000 [facility] CtrProtein pq6181-46-11 17:03:00* Test Item Value Reference Range Interpretation Comme nts Urine Protein (test code = 92250576) Negative [facility] CtrUrobilinogen, urine, hx2547-30-93 17:03:00* Test Item Value Reference Range Interpretation Comme nts Urine Urobilinogen (test cod e = 155475421) 0.2 [facility] nitrate ciskgztay2195-52-14 17:03:00* Test Item Value Reference Range Interpretation Comme nts Urine Nitrate (test code = 65139-1) Negative [facility] CtrHCG ur TS0973-79-36 17:03:00* Test Item Value Reference Range Interpretation Comme nts Urine HCG, Qualitative (test code = 2106-3) NEGATIVE [facility] CtrColor of Urine by Wbvp8660-09-61 17:03:00* Test Item Value Reference Range Interpretation Comme nts Urine Color (test code = 86461-5) Yellow [facility] CtrAppearance of Zayxp7090-19-77 17:03:00* Test Item Value Reference Range Interpretation Comme nts Urine Appearance (test code = 5767-9) Cloudy [facility] CtrUrine glucose ictboitmo2679-70-90 17:03:00* Test Item Value Reference Range Interpretation Comme nts Urine Glucose (UA) (test cod e = 2349-9) Negative [facility] CtrBilirubin en2091-27-17 17:03:00* Test Item Value Reference Range Interpretation Comme [facility] Urine Bilirubin (test code = 161341437) Negative [facility] CtrKetones yq8980-99-80 17:03:00* Test Item Value Reference Range Interpretation Comme [facility] Urine Ketones (test code = 63079606) Negative [facility] CtrSpecific gravity of Urine by Automated test strip 2024-04-10 17:03:00* Test Item Value Reference Range Interpretation Comme nts Urine Specific [place] (test code = 13531-1) 1.006 [facility] CtrAbsolute eosinophil xiflo0823-02-47 17:00:00* Test Item Value Reference Range Interpretation Comme nts Eosinophils # (Auto) (test c ode = EGK6615) 0.25 [facility] CtrRBC yzgae1733-13-48 17:00:00* Test Item Value Reference Range Interpretation Comme nts Red Blood Count (test code = 23159754) 5.17 [facility] PgyRddznropal9690-86-44 17:00:00* Test Item Value Reference Range Interpretation Comme nts Hematocrit (test code = 87801420) 41.9 [facility] CtrMCV (mean corpuscular volume) determination 2024-04-10 17:00:00* Test Item Value Reference Range Interpretation Comme nts Mean Corpuscular Volume (shailesh t code = 06284-5) 81.0 [facility] CtrMean corpuscular hemoglobin (MCH) determination 2024-04-10 17:00:00* Test Item Value Reference Range Interpretation Comme [facility] Mean Corpuscular Hemoglobin (test code = 83366630) 26.1 [facility] HospitalMean corpuscular hemoglobin concentration (MCHC) jqgumcdnpvoqp2442-71-69 17:00:00* Test Item Value Reference Range Interpretation Comme [facility] Mean Corpuscular Hemoglobin Concent (test code = 71879342) 32.2 [facility] CtrRBC distribution width coefficient of variation 2024-04-10 17:00:00* Test Item Value Reference Range Interpretation Comme [facility] Red Cell Distribution Width (test code = 21117598) 15.2 [facility] CtrPlatelet qhezf8007-10-05 17:00:00* Test Item Value Reference Range Interpretation Comme [facility] Platelet Count (test code = 75932386) 343 [facility] CtrMean platelet vwxwvo0395-34-27 17:00:00* Test Item Value Reference Range Interpretation Comme [facility] Mean Platelet Volume (test c ode = 54466357) 9.3 [facility] CtrNeutrophils seg % xjr5833-85-49 17:00:00* Test Item Value Reference Range Interpretation Comme [facility] Neutrophils (%) (Auto) (test code = 04813-3) 71.4 [facility] CtrAbsolute immature granulocyte dcttl1554-81-72 17:00:00* Test Item Value Reference Range Interpretation Comme [facility] Absolute Immature Granulocyt e (auto (test code = 70490-6) 0.05 [facility] CtrBlood band neutrophils count (number/volume) 2024-04-10 17:00:00* Test Item Value Reference Range Interpretation Comme [facility] Neutrophils # (Auto) (test c ode = 59787-4) 8.20 [facility] CtrAbsolute lymphocyte hvtra7114-86-84 17:00:00* Test Item Value Reference Range Interpretation Comme [facility] Lymphocytes # (Auto) (test c ode = 65729-5) 2.42 [facility] CtrAbsolute basophil roenk2625-95-24 17:00:00* Test Item Value Reference Range Interpretation Comme nts Basophils # (Auto) (test cod e = 43971545) 0.03 [facility] CtrAbsolute NRBC zzdwi6855-06-86 17:00:00* Test Item Value Reference Range Interpretation Comme nts Nucleated Red Blood Cells # (test code = 662582015) 0 [facility] CtrCT ABDOMEN PELVIS WO UAJLETVH4323-73-20 00:27:38 Ordering Physician: LEIGH ROJO Clinical indication: [...] the spine.Multilevel lumbar central canal stenosis is present.[facility]entonComplete Metabolic Pclcv7792-30-73 23:13:34* Test Item Value Reference Range Interpretation Comme nts NA (test code = 8510151547) 136 mmol/L 135-145 K (test code = 5650970468) 3.7 mmol/L 3.5-5.0 CL (test code = 3943305234) 106 mmol/L 98-108 CO2 TOTAL (test code = 2253006387) 20 mmol/L 23-31 L AGAP (test code = 9570875626) 10 2-16 BUN (test code = 9533056590) 6 mg/dL 7-23 L GLUCOSE (test code = 4095605259) 149 mg/dL 70-110 H CREATININE (test code = 2160-0) 0.63 mg/dL 0.50-1.04 TOTAL BILI (test code = 8786002635) 0.3 mg/dL 0.1-1.1 CALCIUM (test code = 2536913091) 9.2 mg/dL 8.6-10.6 T PROTEIN (test code = 8665919964) 7.4 g/dL 6.3-8.2 ALBUMIN (test code = 4353198108) 4.3 g/dL 3.5-5.0 ALK PHOS (test code = 4424110751) 74 U/L 34-122 ALTv (test code = 1742-6) 20 U/L 5-35 AST(SGOT) (test code = 1258692832) 22 U/L 13-40 eGFR (test code = 26927-0) 111.6 mL/min/1.73m2 CKD-EPI eGFR (2020). Assuming creatinine has been stable day-to-day for at least three months, the eGFR indicates Category G1 (>= 90 mL/min/1.73 m2) Lab Interpretation (test code = 79726-9) Abnormal [facility]entonLip[facility], Xeqmm3484-43-40 23:12:53* Test Item Value Reference Range Interpretation Comme nts LIPASE (test code = 0967518705) 104 U/L 0-220 Lab Interpretation (test cod e = 06570-1) Normal [facility]entonPOCT Elci6919-75-95 23:01:00* Test Item Value Reference Range Interpretation Comme nts POCT PREG (test code = 1605) Negative On board controls acceptable with C Line (test code = 3574) Yes POCT PREG LOT # (test code = 3575) [id number] POCT PREG TEST DATE ( test code = 3576) Lab Interpretation (test cod e = 60376-9) Normal [facility] DentonCB with Gzjyylymkefw7353-36-25 23:00:31* Test Item Value Reference Range Interpretation [...] 33.0 g/dL 31.6-35.1 RDW-SD (test code = 54998-0) 45.5 fL 39.0-49.9 RDW-CV (test code = 788-0) 15.3 % 12.0-15.5 PLT (test code = 777-3) 370 166-358 H MPV (test code = 56098-7) 9.3 fL 9.5-12.9 L NRBC/100 WBC (test code = 4448561751) 0.0 0.0-10.0 NRBC x10^3 (test code = 0336386673) See_Comment [Automated messa ge] The system which generated this result transmitted reference range: 10*3/?L. The reference range was not used to interpret this result as normal/abnormal. GRAN MAT (NEUT) % (test code = 770-8) 71.8 % IMM GRAN % (test code = 9223383751) 0.60 % LYMPH % (test code = 736-9) 20.9 % MONO % (test code = 5905-5) 4.9 % EOS % (test code = 713-8) 1.4 % BASO % (test code = 706-2) 0.4 % GRAN MAT x10^3(ANC) (test code = 4641738359) 9.75 10*3/uL 1.88-7.09 H IMM GRAN x10^3 (test code = 1144970661) 0.08 10*3/uL 0.00-0.06 H LYMPH x10^3 (test code = 731-0) 2.83 10*3/uL 1.32-3.29 MONO x10^3 (test code = 742-7) 0.66 10*3/uL 0.33-0.92 EOS x10^3 (test code = 711-2) 0.19 10*3/uL 0.03-0.39 BASO x10^3 (test code = 704-7) 0.05 10*3/uL 0.01-0.07 Lab Interpretation (test code = 30251-1) Abnormal [facility]entonCT ABDOMEN PELVIS W XBFSXJAJ2184-45-70 05:07:16ORDERING PHYSICIAN:OLIVIA MUSA CLINICAL INFORMATION: ? Abdominal [...] are clear. There are nosuspicious focal osseous lesions.[facility] Complete Metabolic Cffhg6033-03-65 04:38:59* Test Item Value Reference Range Interpretation Comme nts NA (test code = 7960228316) 138 mmol/L 135-145 K (test code = 1654886742) 3.7 mmol/L 3.5-5.0 CL (test code = 2781777160) 108 mmol/L 98-108 CO2 TOTAL (test code = 3442810944) 22 mmol/L 23-31 L AGAP (test code = 5002518042) 8 2-16 BUN (test code = 5480616279) 12 mg/dL 7-23 GLUCOSE (test code = 7506309565) 98 mg/dL 70-110 CREATININE (test code = 2160-0) 0.62 mg/dL 0.50-1.04 TOTAL BILI (test code = 5744301151) 0.4 mg/dL 0.1-1.1 CALCIUM (test code = 5388793671) 8.9 mg/dL 8.6-10.6 T PROTEIN (test code = 0324158500) 7.1 g/dL 6.3-8.2 ALBUMIN (test code = 3654624576) 3.8 g/dL 3.5-5.0 ALK PHOS (test code = 2176905860) 89 U/L 34-122 ALTv (test code = 1742-6) 17 U/L 5-35 AST(SGOT) (test code = 4452967670) 22 U/L 13-40 eGFR (test code = 14327-4) 112.8 mL/min/1.73m2 CKD-EPI eGFR (2020). Assuming creatinine has been stable day-to-day for at least three months, the eGFR indicates Category G1 (>= 90 mL/min/1.73 m2) Lab Interpretation (test code = 10719-0) Abnormal [facility]enton[facility], Edikg1040-64-62 04:38:58* Test Item Value Reference Range Interpretation Comme nts LIPASE (test code = 6771925151) 136 U/L 0-220 Lab Interpretation (test cod e = 61334-6) Normal [facility]entonCBC with Lqtocgliebni9467-98-44 04:19:14* Test Item Value Reference Range Interpretation [...] 32.2 g/dL 31.6-35.1 RDW-SD (test code = 76082-6) 50.2 fL 39.0-49.9 H RDW-CV (test code = 788-0) 17.3 % 12.0-15.5 H PLT (test code = 777-3) 377 166-358 H MPV (test code = 05187-6) 9.4 fL 9.5-12.9 L NRBC/100 WBC (test code = 9448765050) 0.0 0.0-10.0 NRBC x10^3 (test code = 3059375110) See_Comment [Automated messa ge] The system which generated this result transmitted reference range: 10*3/?L. The reference range was not used to interpret this result as normal/abnormal. GRAN MAT (NEUT) % (test code = 770-8) 65.3 % IMM GRAN % (test code = 0259455298) 0.40 % LYMPH % (test code = 736-9) 26.1 % MONO % (test code = 5905-5) 6.2 % EOS % (test code = 713-8) 1.6 % BASO % (test code = 706-2) 0.4 % GRAN MAT x10^3(ANC) (test code = 8520773486) 7.33 10*3/uL 1.88-7.09 H IMM GRAN x10^3 (test code = 8421917565) 0.04 10*3/uL 0.00-0.06 LYMPH x10^3 (test code = 731-0) 2.93 10*3/uL 1.32-3.29 MONO x10^3 (test code = 742-7) 0.70 10*3/uL 0.33-0.92 EOS x10^3 (test code = 711-2) 0.18 10*3/uL 0.03-0.39 BASO x10^3 (test code = 704-7) 0.05 10*3/uL 0.01-0.07 Lab Interpretation (test code = 04344-7) Abnormal [facility]entonPONV NSFW0199-11-24 03:40:00* Test Item Value Reference Range Interpretation Comme nts POCT PREG (test code = 1605) Negative On board controls acceptable with C Line (test code = 3574) Yes POCT PREG LOT # (test code = 3577) [id number] POCT PREG TEST DATE ( test code = 3576) 2024-10-13 Lab Interpretation (test cod e = 29947-9) Normal [facility] DentonXR VZH6599-74-46 04:35:04Ordering physician: ROBERTO RICHARDS INDICATION: Abdominal pain COMPARISON: CT of the abdomen and pelv is dated 03/09/2023 FINDINGS: Supine AP view of the abdomen and pelvis. There is no bowelobstruction or generalized constipation.[facility]entonPOCT Oaze6050-95-03 02:30:00* Test Item Value Reference Range Interpretation Comme nts POCT PREG (test code = 1605) Negative On board controls acceptable with C Line (test code = 3574) Yes POCT PREG LOT # (test code = 3575) [id number] POCT PREG TEST DATE ( test code = 3576) 2024-09-15 Lab Interpretation (test cod e = 69197-9) Normal [facility]entonCBC WITH SXEZ2681-81-84 00:05:06* Test Item Value Reference Range Interpretation Comme nts WBC (test code = 6690-2) 12.06 See_Comment H [Automated [employer] ge] The system which generated this result transmitted reference range: 4.30 - 11.10 10*3/?L. The reference range was not used to interpret this result as normal/abnormal. RBC (test code = 789-8) 5.18 See_Comment [Automated [employer] ge] The system which generated this result [...] 34.2 g/dL 31.6-35.1 RDW-SD (test code = 52635-4) 41.5 fL 39.0-49.9 RDW-CV (test code = 788-0) 14.5 % 12.0-15.5 PLT (test code = 777-3) 384 See_Comment H [Automated messa ge] The system which generated this result transmitted reference range: 166 - 358 10*3/?L. The reference range was not used to interpret this result as normal/abnormal. MPV (test code = 38752-7) 9.6 fL 9.5-12.9 GRAN MAT (NEUT) % (test code = 770-8) 66.0 % IMM GRAN % (test code = 4325091611) 0.50 % LYMPH % (test code = 736-9) 27.4 % MONO % (test code = 5905-5) 4.6 % EOS % (test code = 713-8) 1.1 % BASO % (test code = 706-2) 0.4 % GRAN MAT x10^3(ANC) (test code = 6763767989) 7.96 10*3/uL 1.88-7.09 H IMM GRAN x10^3 (test code = 1744310193) 0.06 10*3/uL 0.00-0.06 LYMPH x10^3 (test code = 731-0) 3.30 10*3/uL 1.32-3.29 H MONO x10^3 (test code = 742-7) 0.56 10*3/uL 0.33-0.92 EOS x10^3 (test code = 711-2) 0.13 10*3/uL 0.03-0.39 BASO x10^3 (test code = 704-7) 0.05 10*3/uL 0.01-0.07 Lab Interpretation (test code = 24135-9) Abnormal [facility]entonCOMP. METABOLIC PANEL ([id number])2023-05-09 23:27:13* Test Item Value Reference Range Interpretation Comme nts NA (test code = 4271608109) 137 mmol/L 135-145 K (test code = 8120756050) 3.3 mmol/L 3.5-5.0 L CL (test code = 7835752524) 103 mmol/L 98-108 CO2 TOTAL (test code = 3080149346) 20 mmol/L 23-31 L AGAP (test code = 5448919077) 14 2-16 BUN (test code = 2657681822) 5 mg/dL 7-23 L GLUCOSE (test code = 8297364363) 146 mg/dL 70-110 H CREATININE (test code = 7161510783) 0.60 mg/dL 0.50-1.04 TOTAL BILI (test code = 6612007320) 0.3 mg/dL 0.1-1.1 CALCIUM (test code = 0893279437) 9.3 mg/dL 8.6-10.6 T PROTEIN (test code = 7641645297) 7.9 g/dL 6.3-8.2 ALBUMIN (test code = 8387785970) 4.4 g/dL 3.5-5.0 ALK PHOS (test code = 1491365741) 105 U/L 34-122 ALTv (test code = 1742-6) 38 U/L 5-35 H AST(SGOT) (test code = 9659250258) 21 U/L 13-40 eGFR (test code = 45121-0) 113.7 mL/min/1.73m2 CKD-EPI eGFR (2020). Assuming creatinine has been stable day-to-day for at least three months, the eGFR indicates Category G1 (>= 90 mL/min/1.73 m2) Lab Interpretation (test code = 22685-6) Abnormal [facility]entonLIPASE2023-11-02 23:27:13* Test Item Value Reference Range Interpretation Comme nts LIPASE (test code = 8272555255) 142 U/L 0-220 Lab Interpretation (test cod e = 55236-5) Normal [facility]entonCOMP. METABOLIC PANEL (54782)2023-04-30 23:41:47* Test Item Value Reference Range Interpretation Comme nts NA (test code = 8201897515) 139 mmol/L 135-145 K (test code = 6872967549) 3.3 mmol/L 3.5-5.0 L CL (test code = 1338800591) 105 mmol/L 98-108 CO2 TOTAL (test code = 9470220613) 20 mmol/L 23-31 L AGAP (test code = 9689183921) 14 2-16 BUN (test code = 1781163099) 6 mg/dL 7-23 L GLUCOSE (test code = 2809845577) 119 mg/dL 70-110 H CREATININE (test code = 1459035480) 0.59 mg/dL 0.50-1.04 TOTAL BILI (test code = 6390354348) 0.3 mg/dL 0.1-1.1 CALCIUM (test code = 1535970799) 9.7 mg/dL 8.6-10.6 T PROTEIN (test code = 5748940971) 7.6 g/dL 6.3-8.2 ALBUMIN (test code = 4332325712) 4.2 g/dL 3.5-5.0 ALK PHOS (test code = 2790959619) 78 U/L 34-122 ALTv (test code = 1742-6) 24 U/L 5-35 AST(SGOT) (test code = 7928237787) 24 U/L 13-40 eGFR (test code = 3236369153) 110.7 mL/min/1.73m2 DARWIN (test code = DARWIN) [...] imaging tests). Lab Interpretation (test code = 33298-4) Abnormal [facility] WITH [id number] 23:29:07* Test Item Value Reference Range Interpretation [...] 33.7 g/dL 31.6-35.1 RDW-SD (test code = 33157-2) 41.5 fL 39.0-49.9 RDW-CV (test code = 788-0) 14.3 % 12.0-15.5 PLT (test code = 777-3) 335 See_Comment [Automated messa ge] The system which generated this result transmitted reference range: 166 - 358 10*3/?L. The reference range was not used to interpret this result as normal/abnormal. MPV (test code = 95749-3) 9.7 fL 9.5-12.9 NRBC/100 WBC (test code = 9803336422) 0.0 See_Comment [Automated [employer] ssage] The system which generated this result transmitted reference range: 0.0 - 10.0 /100 WBCs. The reference range was not used to interpret this result as normal/abnormal. NRBC x10^3 (test code = 6910544087) See_Comment [Automated messa ge] The system which generated this result transmitted reference range: 10*3/?L. The reference range was not used to interpret this result as normal/abnormal. GRAN MAT (NEUT) % (test code = 770-8) 65.7 % IMM GRAN % (test code = 8235758951) 0.50 % LYMPH % (test code = 736-9) 25.4 % MONO % (test code = 5905-5) 6.7 % EOS % (test code = 713-8) 1.2 % BASO % (test code = 706-2) 0.5 % GRAN MAT x10^3(ANC) (test code = 3261563852) 7.59 10*3/uL 1.88-7.09 H IMM GRAN x10^3 (test code = 8368174901) 0.06 10*3/uL 0.00-0.06 LYMPH x10^3 (test code = 731-0) 2.94 10*3/uL 1.32-3.29 MONO x10^3 (test code = 742-7) 0.77 10*3/uL 0.33-0.92 EOS x10^3 (test code = 711-2) 0.14 10*3/uL 0.03-0.39 BASO x10^3 (test code = 704-7) 0.06 10*3/uL 0.01-0.07 Lab Interpretation (test code = 33552-2) [id number] 22:59:00* Test Item Value Reference Range Interpretation Comme nts POCT PREG (test code = 1605) Negative On board controls acceptable with C Line (test code = 3574) Yes POCT PREG LOT # (test code = 3575) [id number] POCT PREG TEST DATE ( test code = 3576) 07/10/2024 Lab Interpretation (test cod e = 50310-4) Normal [facility] [id number] 02:36:34* Test Item Value Reference Range Interpretation Comme nts TROPONIN I (test code = 8995789542) 0.000 ng/mL <=0.034 DARWIN (test code = [...] of biotin. Lab Interpretation (test code = 89549-6) Normal [facility] [id number] 02:34:17* Test Item Value Reference Range Interpretation Comme [facility] NT-proBNP (test code = 92603-8) 40 pg/mL <=125 Lab Interpretation (test cod e = 15545-6) Normal [facility] THRMPLAS [id number] 02:33:37* Test Item Value Reference Range Interpretation Comme [facility] APTT Patient (test code = 3173-2) 25 See_Comment [Automated message] The system which generated this result transmitted reference range: 23 - 38 Seconds. The reference range was not used to interpret this result as normal/abnormal. DARWIN (test code = DARWIN) The [facility] patient population mean normal value for aPTT is 30 seconds. Lab Interpretation (test code = 20825-1) Normal [facility]enton[facility] / [id number] 02:31:36* Test Item Value Reference Range Interpretation Comme [facility] PROTIME PATIENT (test code = 5964-2) 12.6 [...] the indications. Lab Interpretation (test code = 57906-6) [facility] METABOLIC PANEL (27285)2023-04-17 02:24:56* Test Item Value Reference Range Interpretation Comme nts NA (test code = 8206031365) 142 mmol/L 135-145 K (test code = 7224986465) 3.1 mmol/L 3.5-5.0 L CL (test code = 7908530661) 108 mmol/L 98-108 CO2 TOTAL (test code = 5684893297) 20 mmol/L 23-31 L AGAP (test code = 5877901175) 14 2-16 BUN (test code = 3003052985) 4 mg/dL 7-23 L GLUCOSE (test code = 5126628436) 107 mg/dL 70-110 CREATININE (test code = 5743156555) 0.61 mg/dL 0.50-1.04 TOTAL BILI (test code = 1535714266) 0.2 mg/dL 0.1-1.1 CALCIUM (test code = 6682151243) 9.1 mg/dL 8.6-10.6 T PROTEIN (test code = 7581689154) 7.0 g/dL 6.3-8.2 ALBUMIN (test code = 1965849825) 3.9 g/dL 3.5-5.0 ALK PHOS (test code = 0398557104) 69 U/L 34-122 ALTv (test code = 1742-6) 21 U/L 5-35 AST(SGOT) (test code = 6088733724) 21 U/L 13-40 eGFR (test code = 7528295224) 106.5 mL/min/1.73m2 DARWIN (test code = DARWIN) [...] imaging tests). Lab Interpretation (test code = 89377-3) Abnormal [facility]11 02:24:56* Test Item Value Reference Range Interpretation Comme nts LIPASE (test code = 2876035033) 104 U/L 0-220 Lab Interpretation (test cod e = 56706-1) Normal [facility] WITH [id number] 02:13:31* Test Item Value Reference Range Interpretation Comme nts WBC (test code = 6690-2) 10.74 See_Comment [Automated [employer]] The system which generated this result transmitted reference range: 4.30 - 11.10 10*3/?L. The reference range was not used to interpret this result as normal/abnormal. RBC (test code = 789-8) 4.75 See_Comment [Automated [employer]] The system which generated this result transmitted [...] 34.5 g/dL 31.6-35.1 RDW-SD (test code = 24452-9) 39.1 fL 39.0-49.9 RDW-CV (test code = 788-0) 13.5 % 12.0-15.5 PLT (test code = 777-3) 324 See_Comment [Automated messa ge] The system which generated this result transmitted reference range: 166 - 358 10*3/?L. The reference range was not used to interpret this result as normal/abnormal. MPV (test code = 65167-8) 9.3 fL 9.5-12.9 L NRBC/100 WBC (test code = 7122004640) 0.0 See_Comment [Automated [employer] ssage] The system which generated this result transmitted reference range: 0.0 - 10.0 /100 WBCs. The reference range was not used to interpret this result as normal/abnormal. NRBC x10^3 (test code = 4157830112) See_Comment [Automated messa ge] The system which generated this result transmitted reference range: 10*3/?L. The reference range was not used to interpret this result as normal/abnormal. GRAN MAT (NEUT) % (test code = 770-8) 65.2 % IMM GRAN % (test code = 0575821635) 0.40 % LYMPH % (test code = 736-9) 26.5 % MONO % (test code = 5905-5) 5.8 % EOS % (test code = 713-8) 1.7 % BASO % (test code = 706-2) 0.4 % GRAN MAT x10^3(ANC) (test code = 5178885978) 7.01 10*3/uL 1.88-7.09 IMM GRAN x10^3 (test code = 9193200137) 0.04 10*3/uL 0.00-0.06 LYMPH x10^3 (test code = 731-0) 2.85 10*3/uL 1.32-3.29 MONO x10^3 (test code = 742-7) 0.62 10*3/uL 0.33-0.92 EOS x10^3 (test code = 711-2) 0.18 10*3/uL 0.03-0.39 BASO x10^3 (test code = 704-7) 0.04 10*3/uL 0.01-0.07 Lab Interpretation (test code = 90998-7) Abnormal [facility] [id number] 02:11:00* Test Item Value Reference Range Interpretation Comme nts POCT PREG (test code = 1605) Negative On board controls acceptable with C Line (test code = 3574) Yes POCT PREG LOT # (test code = 3570) [id number] POCT PREG TEST DATE ( test code = 3576) 2024-09-04 Lab Interpretation (test cod e = 10196-9) Normal [facility] [id number] 23:59:14* Test Item Value Reference Range Interpretation Comme nts TROPONIN I (test code = 2462604135) 0.000 ng/mL <=0.034 DARWIN (test code = [...] of biotin. Lab Interpretation (test code = 31488-1) Normal [facility]. METABOLIC PANEL (92820)2023-04-08 23:47:52* Test Item Value Reference Range Interpretation Comme nts NA (test code = 7931644183) 138 mmol/L 135-145 K (test code = 0416225084) 3.4 mmol/L 3.5-5.0 L CL (test code = 5512159735) 103 mmol/L 98-108 CO2 TOTAL (test code = 5125200252) 22 mmol/L 23-31 L AGAP (test code = 2496850767) 13 2-16 BUN (test code = 9989642460) 6 mg/dL 7-23 L GLUCOSE (test code = 5807191019) 106 mg/dL 70-110 CREATININE (test code = 5654555890) 0.91 mg/dL 0.50-1.04 TOTAL BILI (test code = 5450981919) 0.2 mg/dL 0.1-1.1 CALCIUM (test code = 7475585552) 8.7 mg/dL 8.6-10.6 T PROTEIN (test code = 8339077984) 7.4 g/dL 6.3-8.2 ALBUMIN (test code = 3935571985) 4.1 g/dL 3.5-5.0 ALK PHOS (test code = 5992240039) 71 U/L 34-122 ALTv (test code = 1742-6) 28 U/L 5-35 AST(SGOT) (test code = 2771790176) 28 U/L 13-40 eGFR (test code = 7685456650) 67.2 mL/min/1.73m2 DARWIN (test code = DARWIN) [...] imaging tests). Lab Interpretation (test code = 29461-4) [facility] Test Item Value Reference Range Interpretation Comme nts MAGNESIUM (test code = 9423880389) 2.0 mg/dL 1.7-2.4 Lab Interpretation (test cod e = 44036-7) Normal [facility] 23:47:52* Test Item Value Reference Range Interpretation Comme nts LIPASE (test code = 1531622095) 74 U/L 0-220 Lab Interpretation (test cod e = 42257-8) Normal [facility] WITH [id number] 23:36:30* Test Item Value Reference Range Interpretation [...] 34.5 g/dL 31.6-35.1 RDW-SD (test code = 69617-9) 39.3 fL 39.0-49.9 RDW-CV (test code = 788-0) 13.6 % 12.0-15.5 PLT (test code = 777-3) 305 See_Comment [Automated messa ge] The system which generated this result transmitted reference range: 166 - 358 10*3/?L. The reference range was not used to interpret this result as normal/abnormal. MPV (test code = 11779-4) 9.6 fL 9.5-12.9 NRBC/100 WBC (test code = 6170894110) 0.0 See_Comment [Automated me ssage] The system which generated this result transmitted reference range: 0.0 - 10.0 /100 WBCs. The reference range was not used to interpret this result as normal/abnormal. NRBC x10^3 (test code = 8524031865) See_Comment [Automated messa ge] The system which generated this result transmitted reference range: 10*3/?L. The reference range was not used to interpret this result as normal/abnormal. GRAN MAT (NEUT) % (test code = 770-8) 66.5 % IMM GRAN % (test code = 5641521058) 0.30 % LYMPH % (test code = 736-9) 25.3 % MONO % (test code = 5905-5) 5.2 % EOS % (test code = 713-8) 2.3 % BASO % (test code = 706-2) 0.4 % GRAN MAT x10^3(ANC) (test code = 7608425207) 6.61 10*3/uL 1.88-7.09 IMM GRAN x10^3 (test code = 4014279652) 0.03 10*3/uL 0.00-0.06 LYMPH x10^3 (test code = 731-0) 2.52 10*3/uL 1.32-3.29 MONO x10^3 (test code = 742-7) 0.52 10*3/uL 0.33-0.92 EOS x10^3 (test code = 711-2) 0.23 10*3/uL 0.03-0.39 BASO x10^3 (test code = 704-7) 0.04 10*3/uL 0.01-0.07 Lab Interpretation (test code = 80106-6) Abnormal [facility] [id number] 02:51:00* Test Item Value Reference Range Interpretation Comme nts POCT PREG (test code = 1605) Negative On board controls acceptable with C Line (test code = 3574) Yes POCT PREG LOT # (test code = 3575) [id number] POCT PREG TEST DATE ( test code = 3576) 07/10/2024 Lab Interpretation (test cod e = 06827-1) Normal [facility] [id number] 03:26:00* Test Item Value Reference Range Interpretation Comme nts POCT PREG (test code = 1605) Negative On board controls acceptable with C Line (test code = 3574) Yes POCT PREG LOT # (test code = 3575) [id number] POCT PREG TEST DATE ( test code = 3576) Lab Interpretation (test cod e = 37577-8) [facility] 22:35:38* Test Item Value Reference Range Interpretation Comme nts LIPASE (test code = 6131311503) 2049 U/L 0-220 H Lab Interpretation (test cod e = 92025-0) Abnormal [facility] WITH [id number] 22:30:10* Test Item Value Reference Range Interpretation [...] 34.6 g/dL 31.6-35.1 RDW-SD (test code = 99752-1) 42.7 fL 39.0-49.9 RDW-CV (test code = 788-0) 14.6 % 12.0-15.5 PLT (test code = 777-3) 331 See_Comment [Automated messa ge] The system which generated this result transmitted reference range: 166 - 358 10*3/?L. The reference range was not used to interpret this result as normal/abnormal. MPV (test code = 29070-6) 9.7 fL 9.5-12.9 NRBC/100 WBC (test code = 1506253809) 0.0 See_Comment [Automated me ssage] The system which generated this result transmitted reference range: 0.0 - 10.0 /100 WBCs. The reference range was not used to interpret this result as normal/abnormal. NRBC x10^3 (test code = 3242605487) See_Comment [Automated messa ge] The system which generated this result transmitted reference range: 10*3/?L. The reference range was not used to interpret this result as normal/abnormal. GRAN MAT (NEUT) % (test code = 770-8) 65.7 % IMM GRAN % (test code = 7979696151) 0.50 % LYMPH % (test code = 736-9) 26.5 % MONO % (test code = 5905-5) 5.4 % EOS % (test code = 713-8) 1.5 % BASO % (test code = 706-2) 0.4 % GRAN MAT x10^3(ANC) (test code = 1680780591) 8.05 10*3/uL 1.88-7.09 H IMM GRAN x10^3 (test code = 8502622765) 0.06 10*3/uL 0.00-0.06 LYMPH x10^3 (test code = 731-0) 3.24 10*3/uL 1.32-3.29 MONO x10^3 (test code = 742-7) 0.66 10*3/uL 0.33-0.92 EOS x10^3 (test code = 711-2) 0.18 10*3/uL 0.03-0.39 BASO x10^3 (test code = 704-7) 0.05 10*3/uL 0.01-0.07 Lab Interpretation (test code = 06761-8) Abnormal [facility]. METABOLIC PANEL (20450)2023-02-15 22:27:47* Test Item Value Reference Range Interpretation Comme nts NA (test code = 6509231926) 138 mmol/L 135-145 K (test code = 5161369412) 3.7 mmol/L 3.5-5.0 CL (test code = 0286923799) 105 mmol/L 98-108 CO2 TOTAL (test code = 7840708696) 23 mmol/L 23-31 AGAP (test code = 4481919340) 10 2-16 BUN (test code = 5138022217) 6 mg/dL 7-23 L GLUCOSE (test code = 4491853079) 92 mg/dL 70-110 CREATININE (test code = 9564495999) 0.77 mg/dL 0.50-1.04 TOTAL BILI (test code = 6772320949) 0.7 mg/dL 0.1-1.1 CALCIUM (test code = 8093657248) 9.0 mg/dL 8.6-10.6 T PROTEIN (test code = 1219662612) 7.5 g/dL 6.3-8.2 ALBUMIN (test code = 3110086960) 4.0 g/dL 3.5-5.0 ALK PHOS (test code = 2378208819) 101 U/L 34-122 ALTv (test code = 1742-6) 25 U/L 5-35 AST(SGOT) (test code = 8284804583) 36 U/L 13-40 eGFR (test code = 4563509990) 81.8 mL/min/1.73m2 DARWIN (test code = DARWIN) [...] imaging tests). Lab Interpretation (test code = 75409-5) [facility]normal [facility]-DORTG3893-17-01 20:56:28* Test Item Value Reference Range Interpretation Comments D-DIMER (test code = 5816142753) 0.44 See_Comment H [Automated message] The system [...] a diagnosis. Lab Interpretation (test code = 44658-8) Abnormal [facility] [id number] 01:15:16* Test Item Value Reference Range Interpretation Comments TROPONIN I (test code = 5187620506) 0.001 ng/mL See_Comment [Automated message] The system [...] of biotin. Lab Interpretation (test code = 95198-0) Normal [facility] [id number] 22:52:31* Test Item Value Reference Range Interpretation Comments TROPONIN I (test code = 2427776493) 0.001 ng/mL See_Comment [Automated message] The system [...] of biotin. Lab Interpretation (test code = 12887-5) Normal [facility] [id number] 22:49:33* Test Item Value Reference Range Interpretation Comme nts NT-proBNP (test code = 5091634415) 145 pg/mL See_Comment H [Automated message] The system which generated this result transmitted reference range: <=125. The reference range was not used to interpret this result as normal/abnormal. DARWIN (test code = DARWIN) Biotin has been reported to cause a negative bias, interpret results relative to patient's use of biotin. Lab Interpretation (test code = 13105-9) Abnormal [facility] METABOLIC PANEL (NA, K, CL, CO2, GLUCOSE, BUN, CREATININE, CA)2022-01-09 22:40:32* Test Item Value Reference Range Interpretation Comme nts NA (test code = 7658078313) 142 mmol/L 135-145 K (test code = 6227092181) 3.3 mmol/L 3.5-5.0 L CL (test code = 3534389870) 109 mmol/L 98-108 H CO2 TOTAL (test code = 3329899659) 22 mmol/L 23-31 L AGAP (test code = 1461646039) 2-16 BUN (test code = 9323387432) 9 mg/dL 7-23 GLUCOSE (test code = 0657368665) 116 mg/dL 70-110 H CREATININE (test code = 9516168309) 0.69 mg/dL 0.50-1.04 CALCIUM (test code = 0824641178) 9.2 mg/dL 8.6-10.6 eGFR (test code = 8077167002) mL/min/1.73m2 DARWIN (test code = DARWIN) Association [...] imaging tests). Lab Interpretation (test code = 00681-7) Abnormal [facility] WITH [id number] 22:29:09* Test Item Value Reference Range Interpretation Comme nts WBC (test code = 6690-2) See_Comment [Automated [employer]] The system which generated this result transmitted reference range: 4.30 - 11.10 10*3/?L. The reference range was not used to interpret this result as normal/abnormal. RBC (test code = 789-8) See_Comment [Automated [employer]] The system which generated this result [...] 34.4 g/dL 31.6-35.1 RDW-SD (test code = 38002-9) 40.7 fL 39.0-49.9 RDW-CV (test code = 788-0) 14.1 % 12.0-15.5 PLT (test code = 777-3) See_Comment [Automated [employer]] The system which generated this result transmitted reference range: 166 - 358 10*3/?L. The reference range was not used to interpret this result as normal/abnormal. MPV (test code = 19037-8) 9.6 fL 9.5-12.9 NRBC/100 WBC (test code = 7371294925) See_Comment [Automated [employer] ssage] The system which generated this result transmitted reference range: 0.0 - 10.0 /100 WBCs. The reference range was not used to interpret this result as normal/abnormal. NRBC x10^3 (test code = 7325733414) <0.01 See_Comment [Automated messa ge] The system which generated this result transmitted reference range: 10*3/?L. The reference range was not used to interpret this result as normal/abnormal. GRAN MAT (NEUT) % (test code = 770-8) 54.7 % IMM GRAN % (test code = 7956371984) 0.40 % LYMPH % (test code = 736-9) 33.8 % MONO % (test code = 5905-5) 7.1 % EOS % (test code = 713-8) 3.3 % BASO % (test code = 706-2) 0.7 % GRAN MAT x10^3(ANC) (test code = 8080935321) 4.87 10*3/uL 1.88-7.09 IMM GRAN x10^3 (test code = 0834377091) 0.04 10*3/uL 0.00-0.06 LYMPH x10^3 (test code = 731-0) 3.01 10*3/uL 1.32-3.29 MONO x10^3 (test code = 742-7) 0.63 10*3/uL 0.33-0.92 EOS x10^3 (test code = 711-2) 0.29 10*3/uL 0.03-0.39 BASO x10^3 (test code = 704-7) 0.06 10*3/uL 0.01-0.07 Lab Interpretation (test code = 56651-4) Abnormal [facility] [id number] 06:45:45* Test Item Value Reference Range Interpretation Comments TROPONIN I (test code = 6332341702) 0.000 ng/mL See_Comment [Automated message] The system [...] of biotin. Lab Interpretation (test code = 30486-9) Normal [facility] STIMULATING [id number] 05:00:55 * Test Item Value Reference Range Interpretation Comme nts TSH (test code = 1632943685) See_Comment [Automated [employer] ge] The system which generated this result transmitted reference range: 0.45 - 4.70 mIU/L. The reference range was not used to interpret this result as normal/abnormal. Lab Interpretation (test code = 25886-8) Normal [facility] [id number] 04:47:50* Test Item Value Reference Range Interpretation Comme nts FREE T4 (test code = 1400885693) See_Comment [Automated [employer]] The system which generated this result transmitted reference range: 0.78 - 2.20 ng/dL:. The reference range was not used to interpret this result as normal/abnormal. Lab Interpretation (test code = 81914-0) Normal [facility] [id number] 04:47:10* Test Item Value Reference Range Interpretation Comme nts FREE T3 (test code = 5618937301) 4.37 pg/mL 2.77-5.27 Lab Interpretation (test cod e = 53578-1) Normal [facility] [id number] 04:42:07* Test Item Value Reference Range Interpretation Comments TROPONIN I (test code = 7823440497) 0.001 ng/mL See_Comment [Automated message] The system [...] of biotin. Lab Interpretation (test code = 53442-9) Normal [facility]. METABOLIC PANEL (51071)2021-12-14 04:30:28* Test Item Value Reference Range Interpretation Comme nts NA (test code = 8715721687) 141 mmol/L 135-145 K (test code = 2761758181) 3.6 mmol/L 3.5-5.0 CL (test code = 3761908367) 111 mmol/L 98-108 H CO2 TOTAL (test code = 5629908162) 19 mmol/L 23-31 L AGAP (test code = 3904584957) 2-16 BUN (test code = 0888576844) 15 mg/dL 7-23 GLUCOSE (test code = 4619000686) 113 mg/dL 70-110 H CREATININE (test code = 4097856660) 1.05 mg/dL 0.50-1.04 H TOTAL BILI (test code = 0355743239) 0.2 mg/dL 0.1-1.1 CALCIUM (test code = 5171531911) 9.8 mg/dL 8.6-10.6 T PROTEIN (test code = 3707567797) 6.8 g/dL 6.3-8.2 ALBUMIN (test code = 1048818563) 4.2 g/dL 3.5-5.0 ALK PHOS (test code = 2469195213) 73 U/L 34-122 ALTv (test code = 1742-6) 16 U/L 5-35 AST(SGOT) (test code = 6539054881) 19 U/L 13-40 eGFR (test code = 6614488487) mL/min/1.73m2 DARWIN (test code = DARWIN) Association [...] imaging tests). Lab Interpretation (test code = 66247-7) [facility] 04:29:48* Test Item Value Reference Range Interpretation Comme nts LIPASE (test code = 3444048610) 225 U/L 0-220 H Lab Interpretation (test cod e = 30109-7) [facility] [id number] 04:20:00* Test Item Value Reference Range Interpretation Comme nts POCT PREG (test code = 1605) negative On board controls acceptable with C Line (test code = 3574) present POCT PREG LOT # (test code = 3575) [id number] POCT PREG TEST DATE ( test code = 3576) 2023-05-07 Lab Interpretation (test cod e = 35357-1) [facility] [id number] 04:01:25* Test Item Value Reference Range Interpretation [...] 34.3 g/dL 31.6-35.1 RDW-SD (test code = 41965-8) 39.5 fL 39.0-49.9 RDW-CV (test code = 788-0) 13.6 % 12.0-15.5 PLT (test code = 777-3) See_Comment [Automated [employer] ge] The system which generated this result transmitted reference range: 166 - 358 10*3/?L. The reference range was not used to interpret this result as normal/abnormal. MPV (test code = 20524-8) 9.9 fL 9.5-12.9 NRBC/100 WBC (test code = 8831250440) See_Comment [Automated [employer] ssage] The system which generated this result transmitted reference range: 0.0 - 10.0 /100 WBCs. The reference range was not used to interpret this result as normal/abnormal. NRBC x10^3 (test code = 4490873817) <0.01 See_Comment [Automated [employer] ge] The system which generated this result transmitted reference range: 10*3/?L. The reference range was not used to interpret this result as normal/abnormal. GRAN MAT (NEUT) % (test code = 770-8) 51.5 % IMM GRAN % (test code = 9176453443) 0.50 % LYMPH % (test code = 736-9) 35.8 % MONO % (test code = 5905-5) 9.4 % EOS % (test code = 713-8) 2.2 % BASO % (test code = 706-2) 0.6 % GRAN MAT x10^3(ANC) (test code = 1736085825) 5.37 10*3/uL 1.88-7.09 IMM GRAN x10^3 (test code = 8134013395) 0.05 10*3/uL 0.00-0.06 LYMPH x10^3 (test code = 731-0) 3.73 10*3/uL 1.32-3.29 H MONO x10^3 (test code = 742-7) 0.98 10*3/uL 0.33-0.92 H EOS x10^3 (test code = 711-2) 0.23 10*3/uL 0.03-0.39 BASO x10^3 (test code = 704-7) 0.06 10*3/uL 0.01-0.07 Lab Interpretation (test code = 13291-4) [id number] 04:04:13* Test Item Value Reference Range Interpretation Comments TROPONIN I (test code = [id number]) 0.001 ng/mL See_Comment [Automated message] The system [...] of biotin. Lab Interpretation (test code = 46580-5) [facility] [id number] 02:56:00* Test Item Value Reference Range Interpretation Comme nts POCT PREG (test code = 1605) negative On board controls acceptable with C Line (test code = 3574) present POCT PREG LOT # (test code = 3575) [id number] POCT PREG TEST DATE ( test code = 3576) 2023-04-06 Lab Interpretation (test cod e = 72942-4) [facility] [id number] 02:15:30* Test Item Value Reference Range Interpretation Comments TROPONIN I (test code = 3628025496) 0.000 ng/mL See_Comment [Automated message] The system [...] of biotin. Lab Interpretation (test code = 81648-9) [facility] [id number] 02:12:14* Test Item Value Reference Range Interpretation Comme nts NT-proBNP (test code = 6364720774) 109 pg/mL See_Comment [Automated message] The system which generated this result transmitted reference range: <=125. The reference range was not used to interpret this result as normal/abnormal. DARWIN (test code = DARWIN) Biotin has been reported to cause a negative bias, interpret results relative to patient's use of biotin. Lab Interpretation (test code = 03190-6) [facility] METABOLIC PANEL (82142)2021-11-12 02:04:12* Test Item Value Reference Range Interpretation Comme nts NA (test code = 6051671429) 140 mmol/L 135-145 K (test code = 9572989652) 4.0 mmol/L 3.5-5.0 CL (test code = 3629499331) 111 mmol/L 98-108 H CO2 TOTAL (test code = 9592608184) 17 mmol/L 23-31 L AGAP (test code = 7368420383) 2-16 BUN (test code = 4474226176) 9 mg/dL 7-23 GLUCOSE (test code = 1532706082) 105 mg/dL 70-110 CREATININE (test code = 3531591756) 0.72 mg/dL 0.50-1.04 TOTAL BILI (test code = 8230792294) 0.4 mg/dL 0.1-1.1 CALCIUM (test code = 7141304555) 9.3 mg/dL 8.6-10.6 T PROTEIN (test code = 5412720362) 6.6 g/dL 6.3-8.2 ALBUMIN (test code = 2663902389) 4.0 g/dL 3.5-5.0 ALK PHOS (test code = 0699286171) 70 U/L 34-122 ALTv (test code = 1742-6) 19 U/L 5-35 AST(SGOT) (test code = 9318070544) 21 U/L 13-40 eGFR (test code = 4017823972) mL/min/1.73m2 DARWIN (test code = DARWIN) Association [...] imaging tests). Lab Interpretation (test code = 00303-9) [facility]normal [facility] 02:03:32* Test Item Value Reference Range Interpretation Comme nts LIPASE (test code = 9812679647) 173 U/L 0-220 Lab Interpretation (test cod e = 74442-4) [facility] WITH [id number] 01:43:53* Test Item Value Reference Range Interpretation Comme nts WBC (test code = 6690-2) See_Comment [Automated [employer]] The system which generated this result transmitted reference range: 4.30 - 11.10 10*3/?L. The reference range was not used to interpret this result as normal/abnormal. RBC (test code = 789-8) See_Comment [Automated [employer] ge] The system which generated this result [...] 33.7 g/dL 31.6-35.1 RDW-SD (test code = 08649-3) 41.3 fL 39.0-49.9 RDW-CV (test code = 788-0) 14.3 % 12.0-15.5 PLT (test code = 777-3) See_Comment [Automated [employer]] The system which generated this result transmitted reference range: 166 - 358 10*3/?L. The reference range was not used to interpret this result as normal/abnormal. MPV (test code = 75177-2) 9.7 fL 9.5-12.9 NRBC/100 WBC (test code = 5702616103) See_Comment [Automated me ssage] The system which generated this result transmitted reference range: 0.0 - 10.0 /100 WBCs. The reference range was not used to interpret this result as normal/abnormal. NRBC x10^3 (test code = 2374813294) <0.01 See_Comment [Automated messa ge] The system which generated this result transmitted reference range: 10*3/?L. The reference range was not used to interpret this result as normal/abnormal. GRAN MAT (NEUT) % (test code = 770-8) 62.6 % IMM GRAN % (test code = 2324807832) 0.50 % LYMPH % (test code = 736-9) 27.0 % MONO % (test code = 5905-5) 6.5 % EOS % (test code = 713-8) 2.9 % BASO % (test code = 706-2) 0.5 % GRAN MAT x10^3(ANC) (test code = 6834229210) 6.30 10*3/uL 1.88-7.09 IMM GRAN x10^3 (test code = 8183757933) 0.05 10*3/uL 0.00-0.06 LYMPH x10^3 (test code = 731-0) 2.71 10*3/uL 1.32-3.29 MONO x10^3 (test code = 742-7) 0.65 10*3/uL 0.33-0.92 EOS x10^3 (test code = 711-2) 0.29 10*3/uL 0.03-0.39 BASO x10^3 (test code = 704-7) 0.05 10*3/uL 0.01-0.07 Lab Interpretation (test code = 60114-4) [facility]normal [facility]enton[facility] [id number] 02:21:00* Test Item Value Reference Range Interpretation Comme nts POCT PREG (test code = 1605) Negative On board controls acceptable with C Line (test code = 3574) Present Lab Interpretation (test cod e = 50687-0) [facility]entonComplete Metabolic [id number] 02:05:50* Test Item Value Reference Range Interpretation Comme nts NA (test code = 6573162134) 137 mmol/L 135-145 K (test code = 7976747899) 3.9 mmol/L 3.5-5.0 CL (test code = 7794128468) 109 mmol/L 98-108 H CO2 TOTAL (test code = 2989907394) 19 mmol/L 23-31 L AGAP (test code = 5132078765) 2-16 BUN (test code = 3683652171) 10 mg/dL 7-23 GLUCOSE (test code = 0392810807) 101 mg/dL 70-110 CREATININE (test code = 5918924642) 0.80 mg/dL 0.50-1.04 TOTAL BILI (test code = 5161293388) 0.3 mg/dL 0.1-1.1 CALCIUM (test code = 3435951526) 8.8 mg/dL 8.6-10.6 T PROTEIN (test code = 5105779097) 6.6 g/dL 6.3-8.2 ALBUMIN (test code = 8892564202) 4.0 g/dL 3.5-5.0 ALK PHOS (test code = 3078213717) 71 U/L 34-122 ALTv (test code = 1742-6) 18 U/L 5-35 AST(SGOT) (test code = 3556044975) 20 U/L 13-40 eGFR (test code = 4614965640) mL/min/1.73m2 DARWIN (test code = DARWIN) Association [...] imaging tests). Lab Interpretation (test code = 77343-1) [facility]normal [facility]entonLip[facility], Mgdsj0638-73-75 02:05:25* Test Item Value Reference Range Interpretation Comme nts LIPASE (test code = 1242001044) 96 U/L 0-220 Lab Interpretation (test cod e = 63892-4) [facility] with Byjckfzbhrzt8681-31-04 01:53:06* Test Item Value Reference Range Interpretation Comme nts WBC (test code = 6690-2) See_Comment H [Automated [employer]] The system which generated this result transmitted reference range: 4.30 - 11.10 10*3/?L. The reference range was not used to interpret this result as normal/abnormal. RBC (test code = 789-8) See_Comment H [Automated [employer]] The system which generated this result transmitted [...] 34.3 g/dL 31.6-35.1 RDW-SD (test code = 94801-2) 40.5 fL 39.0-49.9 RDW-CV (test code = 788-0) 14.4 % 12.0-15.5 PLT (test code = 777-3) See_Comment [Automated messa ge] The system which generated this result transmitted reference range: 166 - 358 10*3/?L. The reference range was not used to interpret this result as normal/abnormal. MPV (test code = 40530-2) 9.4 fL 9.5-12.9 L NRBC/100 WBC (test code = 9792112437) See_Comment [Automated [employer] ssage] The system which generated this result transmitted reference range: 0.0 - 10.0 /100 WBCs. The reference range was not used to interpret this result as normal/abnormal. NRBC x10^3 (test code = 0277259733) <0.01 See_Comment [Automated messa ge] The system which generated this result transmitted reference range: 10*3/?L. The reference range was not used to interpret this result as normal/abnormal. GRAN MAT (NEUT) % (test code = 770-8) 59.8 % IMM GRAN % (test code = 8719615207) 0.40 % LYMPH % (test code = 736-9) 31.0 % MONO % (test code = 5905-5) 6.3 % EOS % (test code = 713-8) 2.0 % BASO % (test code = 706-2) 0.5 % GRAN MAT x10^3(ANC) (test code = 1847483550) 6.73 10*3/uL 1.88-7.09 IMM GRAN x10^3 (test code = 7685579929) 0.05 10*3/uL 0.00-0.06 LYMPH x10^3 (test code = 731-0) 3.50 10*3/uL 1.32-3.29 H MONO x10^3 (test code = 742-7) 0.71 10*3/uL 0.33-0.92 EOS x10^3 (test code = 711-2) 0.23 10*3/uL 0.03-0.39 BASO x10^3 (test code = 704-7) 0.06 10*3/uL 0.01-0.07 Lab Interpretation (test code = 36949-3) Abnormal [facility] [id number] 01:45:00* Test Item Value Reference Range Interpretation Comme nts POCT PREG (test code = 1605) negatibe On board controls acceptable with C Line (test code = 3574) present POCT PREG LOT # (test code = 3575) [id number] POCT PREG TEST DATE ( test code = 3576) 09/04/2022 Lab Interpretation (test cod e = 35341-2) [facility] [id number] 06:35:00* Test Item Value Reference Range Interpretation Comme nts POCT PREG (test code = 1605) negative On board controls acceptable with C Line (test code = 3574) present POCT PREG LOT # (test code = 3575) [id number] POCT PREG TEST DATE ( test code = 3576) Lab Interpretation (test cod e = 04649-1) Normal [facility]entonTROP[facility] [id number] 09:09:55* Test Item Value Reference Range Interpretation Comments TROPONIN I (test code = 5083603257) 0.001 ng/mL See_Comment [Automated message] The system [...] of biotin. Lab Interpretation (test code = 78002-7) Normal [facility]entonD-QNQCU5252-44-08 07:23:51* Test Item Value Reference Range Interpretation Comments D-DIMER (test code = 3950609152) See_Comment [Automated message] The system which generated [...] a diagnosis. Lab Interpretation (test code = 61965-5) Normal [facility]2021-[facility]-21 06:11:26* Test Item Value Reference Range Interpretation Comme nts LIPASE (test code = 8830227899) 155 U/L 0-220 Lab Interpretation (test cod e = 98522-4) Normal [facility]entonTROPONIN [id number] 06:06:05* Test Item Value Reference Range Interpretation Comments TROPONIN I (test code = 9872731688) 0.002 ng/mL See_Comment [Automated message] The system [...] of biotin. Lab Interpretation (test code = 39990-0) Normal [facility] [id number] 06:03:04* Test Item Value Reference Range Interpretation Comme nts NT-proBNP (test code = 5935545827) 19 pg/mL See_Comment [Automated message] The system which generated this result transmitted reference range: <=125. The reference range was not used to interpret this result as normal/abnormal. DARWIN (test code = DARWIN) Biotin has been reported to cause a negative bias, interpret results relative to patient's use of biotin. Lab Interpretation (test code = 39360-0) Normal [facility]. METABOLIC PANEL (99559)2021-05-28 05:54:25* Test Item Value Reference Range Interpretation Comme nts NA (test code = 9103590781) 136 mmol/L 135-145 K (test code = 1698063751) 3.2 mmol/L 3.5-5.0 L CL (test code = 2177607209) 109 mmol/L 98-108 H CO2 TOTAL (test code = 0374656702) 16 mmol/L 23-31 L AGAP (test code = 1124723196) 2-16 BUN (test code = 5376127298) 11 mg/dL 7-23 GLUCOSE (test code = 5206111943) 144 mg/dL 70-110 H CREATININE (test code = 1955941723) 0.84 mg/dL 0.50-1.04 TOTAL BILI (test code = 8812989271) 0.2 mg/dL 0.1-1.1 CALCIUM (test code = 5958876603) 9.4 mg/dL 8.6-10.6 T PROTEIN (test code = 3664166905) 6.9 g/dL 6.3-8.2 ALBUMIN (test code = 1277890910) 3.9 g/dL 3.5-5.0 ALK PHOS (test code = 2537961868) 106 U/L 34-122 ALTv (test code = 1742-6) 20 U/L 5-35 AST(SGOT) (test code = 4140311655) 17 U/L 13-40 eGFR (test code = 4175477235) mL/min/1.73m2 DARWIN (test code = DARWIN) Association [...] imaging tests). Lab Interpretation (test code = 57464-1) Abnormal [facility] WITH [id number] 05:40:06* Test Item Value Reference Range Interpretation Comme nts WBC (test code = 6690-2) See_Comment [[employer]] The system which generated this result transmitted reference range: 4.30 - 11.10 10*3/?L. The reference range was not used to interpret this result as normal/abnormal. RBC (test code = 789-8) See_Comment [Automated [employer]] The system which generated this result transmitted [...] 33.3 g/dL 31.6-35.1 RDW-SD (test code = 95209-9) 39.7 fL 39.0-49.9 RDW-CV (test code = 788-0) 13.6 % 12.0-15.5 PLT (test code = 777-3) See_Comment [Automated [employer]] The system which generated this result transmitted reference range: 166 - 358 10*3/?L. The reference range was not used to interpret this result as normal/abnormal. MPV (test code = 48582-8) 9.5 fL 9.5-12.9 NRBC/100 WBC (test code = 6625020636) See_Comment [Automated [employer] ssage] The system which generated this result transmitted reference range: 0.0 - 10.0 /100 WBCs. The reference range was not used to interpret this result as normal/abnormal. NRBC x10^3 (test code = 6831287076) <0.01 See_Comment [Automated [employer]] The system which generated this result transmitted reference range: 10*3/?L. The reference range was not used to interpret this result as normal/abnormal. GRAN MAT (NEUT) % (test code = 770-8) 53.7 % IMM GRAN % (test code = 3399465391) 0.50 % LYMPH % (test code = 736-9) 36.0 % MONO % (test code = 5905-5) 6.3 % EOS % (test code = 713-8) 2.8 % BASO % (test code = 706-2) 0.7 % GRAN MAT x10^3(ANC) (test code = 9300030446) 5.38 10*3/uL 1.88-7.09 IMM GRAN x10^3 (test code = 5161771096) 0.05 10*3/uL 0.00-0.06 LYMPH x10^3 (test code = 731-0) 3.60 10*3/uL 1.32-3.29 H MONO x10^3 (test code = 742-7) 0.63 10*3/uL 0.33-0.92 EOS x10^3 (test code = 711-2) 0.28 10*3/uL 0.03-0.39 BASO x10^3 (test code = 704-7) 0.07 10*3/uL 0.01-0.07 Lab Interpretation (test code = 20625-1) [facility]normal [facility]PO[facility] [id number] 05:32:00* Test Item Value Reference Range Interpretation Comme nts POCT PREG (test code = 1605) negative On board controls acceptable with C Line (test code = 3574) present POCT PREG LOT # (test code = 3575) [id number] POCT PREG TEST DATE ( test code = 3576) 08/07/2022 Lab Interpretation (test cod e = 10393-6) Normal [facility] DentonTroponin [id number] 11:13:57* Test Item Value Reference Range Interpretation Comments TROPONIN I (test code = 9938295356) 0.002 ng/mL See_Comment [Automated message] The system [...] of biotin. Lab Interpretation (test code = 05084-4) Normal [facility] Metabolic Panel (NA, K, CL, CO2, GLUCOSE, BUN, CREATININE, CA)2021-04-08 11:04:34* Test Item Value Reference Range Interpretation Comme nts NA (test code = 3143359723) 140 mmol/L 135-145 K (test code = 2485823790) 3.6 mmol/L 3.5-5.0 CL (test code = 5478340580) 111 mmol/L 98-108 H CO2 TOTAL (test code = 3256692500) 22 mmol/L 23-31 L AGAP (test code = 5352568286) 2-16 BUN (test code = 6025774060) 10 mg/dL 7-23 GLUCOSE (test code = 4848858307) 104 mg/dL 70-110 CREATININE (test code = 8427497266) 0.70 mg/dL 0.50-1.04 CALCIUM (test code = 3423391518) 8.7 mg/dL 8.6-10.6 eGFR (test code = 7037931525) mL/min/1.73m2 DARWIN (test code = DARWIN) Association [...] imaging tests). Lab Interpretation (test code = 42074-5) Abnormal [facility] with Fcjyiorfeezw2865-19-59 10:46:50* Test Item Value Reference Range Interpretation Comme nts WBC (test code = 6690-2) See_Comment [Automated messa ge] The system which generated this result transmitted reference range: 4.30 - 11.10 10*3/?L. The reference range was not used to interpret this result as normal/abnormal. RBC (test code = 789-8) See_Comment [Automated [employer] ge] The system which generated this result [...] 33.5 g/dL 31.6-35.1 RDW-SD (test code = 47851-5) 42.0 fL 39.0-49.9 RDW-CV (test code = 788-0) 14.1 % 12.0-15.5 PLT (test code = 777-3) See_Comment [Automated [employer]] The system which generated this result transmitted reference range: 166 - 358 10*3/?L. The reference range was not used to interpret this result as normal/abnormal. MPV (test code = 70356-0) 10.0 fL 9.5-12.9 NRBC/100 WBC (test code = 3727838234) See_Comment [Automated [employer] ssage] The system which generated this result transmitted reference range: 0.0 - 10.0 /100 WBCs. The reference range was not used to interpret this result as normal/abnormal. NRBC x10^3 (test code = 3579761318) <0.01 See_Comment [Automated [employer] ssage] The system which generated this result transmitted reference range: 10*3/?L. The reference range was not used to interpret this result as normal/abnormal. GRAN MAT (NEUT) % (test code = 770-8) 59.1 % IMM GRAN % (test code = 6147776835) 0.70 % LYMPH % (test code = 736-9) 28.2 % MONO % (test code = 5905-5) 8.5 % EOS % (test code = 713-8) 3.0 % BASO % (test code = 706-2) 0.5 % GRAN MAT x10^3(ANC) (test code = 7856953270) 3.61 10*3/uL 1.88-7.09 IMM GRAN x10^3 (test code = 7688313078) 0.04 10*3/uL 0.00-0.06 LYMPH x10^3 (test code = 731-0) 1.72 10*3/uL 1.32-3.29 MONO x10^3 (test code = 742-7) 0.52 10*3/uL 0.33-0.92 EOS x10^3 (test code = 711-2) 0.18 10*3/uL 0.03-0.39 BASO x10^3 (test code = 704-7) 0.03 10*3/uL 0.01-0.07 [facility]entonTroponin [id number] 05:54:48* Test Item Value Reference Range Interpretation Comments TROPONIN I (test code = 5959513247) 0.002 ng/mL See_Comment [Automated message] The system [...] of biotin. Lab Interpretation (test code = 89397-7) [facility] DentonThyroid Stimulating Hormone (TSH)2021-04-08 00:51:16* Test Item Value Reference Range Interpretation Comme nts TSH (test code = 0127893156) See_Comment [Automated messa ge] The system which generated this result transmitted reference range: 0.45 - 4.70 mIU/L. The reference range was not used to interpret this result as normal/abnormal. Lab Interpretation (test code = 57512-0) Normal [facility] DentonGlycosylated Hemoglobin (A1C)2021-04-08 00:26:53* Test Item Value Reference Range Interpretation Comme nts HGB A1C (test code = 4548-4) 5.5 % 4.0-5.7 DARWIN (test code = DARWIN) Reference RangesNormal: <5.7%Prediabetes: 5.7 - 6.4%Diabetes: > 6.5% Lab Interpretation (test code = 38696-1) Normal [facility] DentonLipid Panel (Total Cholesterol, Triglycerides, HDL)2021-04-08 00:20:12* Test Item Value Reference Range Interpretation Comme nts CHOL (test code = 5217532485) 223 mg/dL 120-200 H HDL (test code = 7903383858) 35 mg/dL >50 L HDLC RATIO (test code = 6182577880) See_Comment H [Automated [employer]] The system which generated this result transmitted reference range: <=4.5. The reference range was not used to interpret this result as normal/abnormal. TRIG (test code = 3232878665) 223 mg/dL 30-170 H LDL CHOL (test code = 73574-3) 143 mg/dL See_Comment [Automated messa ge] The system which generated this result transmitted reference range: <=160. The reference range was not used to interpret this result as normal/abnormal. VLDL (test code = 4123019664) 45 mg/dL 5-60 Lab Interpretation (test code = 46274-3) Abnormal [facility] DentonMagnesium Docsm9007-35-28 00:20:07* Test Item Value Reference Range Interpretation Comme nts MAGNESIUM (test code = 1774409841) 1.7 mg/dL 1.7-2.4 Lab Interpretation (test cod e = 87391-0) [facility]entonCOMP[facility] METABOLIC PANEL (69907)2021-04-07 23:04:13* Test Item Value Reference Range Interpretation Comme nts NA (test code = 9982624106) 139 mmol/L 135-145 K (test code = 7319020011) 3.4 mmol/L 3.5-5.0 L CL (test code = 2476581298) 109 mmol/L 98-108 H CO2 TOTAL (test code = 7196150012) 22 mmol/L 23-31 L AGAP (test code = 0940141640) 2-16 BUN (test code = 0014424456) 10 mg/dL 7-23 GLUCOSE (test code = 5489122025) 97 mg/dL 70-110 CREATININE (test code = 9059299642) 0.84 mg/dL 0.50-1.04 TOTAL BILI (test code = 8497620225) 0.3 mg/dL 0.1-1.1 CALCIUM (test code = 0954904802) 9.2 mg/dL 8.6-10.6 T PROTEIN (test code = 7175638918) 6.6 g/dL 6.3-8.2 ALBUMIN (test code = 4315043538) 3.8 g/dL 3.5-5.0 ALK PHOS (test code = 5204896030) 69 U/L 34-122 ALTv (test code = 1742-6) 18 U/L 5-35 AST(SGOT) (test code = 6315476689) 19 U/L 13-40 eGFR (test code = 4809546487) mL/min/1.73m2 DARWIN (test code = DARWIN) Association [...] imaging tests). Lab Interpretation (test code = 87265-5) Abnormal [facility]entonTROPONIN [id number] 22:33:04* Test Item Value Reference Range Interpretation Comments TROPONIN I (test code = 2437334941) 0.001 ng/mL See_Comment [Automated message] The system [...] of biotin. Lab Interpretation (test code = 80338-1) Normal [facility] DentonN-TERMINAL [id number] 22:30:05* Test Item Value Reference Range Interpretation Comme nts NT-proBNP (test code = 7809147256) 352 pg/mL See_Comment H [Automated message] The system which generated this result transmitted reference range: <=125. The reference range was not used to interpret this result as normal/abnormal. DARWIN (test code = DARWIN) Biotin has been reported to cause a negative bias, interpret results relative to patient's use of biotin. Lab Interpretation (test code = 31365-8) Abnormal [facility] DentonACTIVATED PARTIAL THRMPLAS [id number] 22:28:48* Test Item Value Reference Range Interpretation Comme [facility] APTT Patient (test code = 3173-2) See_Comment [Automated message] The system which generated this result transmitted reference range: 23 - 38 Seconds. The reference range was not used to interpret this result as normal/abnormal. DARWIN (test code = DARWIN) The [facility] patient population mean normal value for aPTT is 30 seconds. Lab Interpretation (test code = 98307-2) Normal [facility] DentonPROTHROMBIN TIME / [id number] 22:26:44* Test Item Value Reference Range Interpretation Comme [facility] PROTIME PATIENT (test code = 5964-2) See_Comment [Automated [employer]] The system which generated this result transmitted reference range: 12.0 - 14.7 Seconds. The reference range was not used to interpret this result as normal/abnormal. INR (test code = 6301-6) Normal INR <1.1; Warfarin Therapeutic range 2.0 to 3.0 or 2.5 to 3.5, depending upon the indications. Lab Interpretation (test code = 19640-9) Normal [facility]entonLIPASE2021-10-01 22:20:05* Test Item Value Reference Range Interpretation Comme [facility] LIPASE (test code = 3406934521) 66 U/L 0-220 Lab Interpretation (test cod e = 14916-3) Normal [facility] DentonCBC WITH [id number] 22:07:01* Test Item Value Reference Range Interpretation Comme [facility] WBC (test code = 6690-2) See_Comment [Automated [employer]] The system which generated this result transmitted reference range: 4.30 - 11.10 10*3/?L. The reference range was not used to interpret this result as normal/abnormal. RBC (test code = 789-8) See_Comment [Automated [employer]] The system which generated this result [...] 33.2 g/dL 31.6-35.1 RDW-SD (test code = 02189-4) 41.6 fL 39.0-49.9 RDW-CV (test code = 788-0) 14.1 % 12.0-15.5 PLT (test code = 777-3) See_Comment [Automated messa ge] The system which generated this result transmitted reference range: 166 - 358 10*3/?L. The reference range was not used to interpret this result as normal/abnormal. MPV (test code = 35825-2) 9.2 fL 9.5-12.9 L NRBC/100 WBC (test code = 5446577343) See_Comment [Automated [employer] ssage] The system which generated this result transmitted reference range: 0.0 - 10.0 /100 WBCs. The reference range was not used to interpret this result as normal/abnormal. NRBC x10^3 (test code = 6529303045) <0.01 See_Comment [Automated [employer]] The system which generated this result transmitted reference range: 10*3/?L. The reference range was not used to interpret this result as normal/abnormal. GRAN MAT (NEUT) % (test code = 770-8) 61.6 % IMM GRAN % (test code = 5228242663) 0.60 % LYMPH % (test code = 736-9) 28.7 % MONO % (test code = 5905-5) 4.9 % EOS % (test code = 713-8) 3.7 % BASO % (test code = 706-2) 0.5 % GRAN MAT x10^3(ANC) (test code = 0348669297) 6.24 10*3/uL 1.88-7.09 IMM GRAN x10^3 (test code = 6539927148) 0.06 10*3/uL 0.00-0.06 LYMPH x10^3 (test code = 731-0) 2.90 10*3/uL 1.32-3.29 MONO x10^3 (test code = 742-7) 0.50 10*3/uL 0.33-0.92 EOS x10^3 (test code = 711-2) 0.37 10*3/uL 0.03-0.39 BASO x10^3 (test code = 704-7) 0.05 10*3/uL 0.01-0.07 Lab Interpretation (test code = 41264-0) [facility] 08:[facility]:55* Test Item Value Reference Range Interpretation Comme nts APPEARANCE (test code = 8506755495) Cloudy Clear A COLOR (test code = 8472634743) Yellow Yellow PH (test code = 6925837635) 4.8-8.0 SP GRAVITY (test code = 7077098945) 1.003-1.030 GLU U QUAL (test code = 1131713802) Normal Normal BLOOD (test code = 1564472890) Negative Negative KETONES (test code = 4560647946) Negative Negative PROTEIN (test code = 2887-8) Negative Negative UROBILIN (test code = 7570649046) Normal Normal BILIRUBIN (test code = 4991206326) 2 mg/dL Negative A NITRITE (test code = 1362185564) Negative Negative LEUK MARC (test code = 6004753276) 75/uL Negative A RBC/HPF (test code = 6189981800) See_Comment H [Automated messa ge] The system which generated this result transmitted reference range: 0 - 3 HPF. The reference range was not used to interpret this result as normal/abnormal. WBC/HPF (test code = 0002277352) See_Comment H [Automated messa ge] The system which generated this result transmitted reference range: 0 - 5 HPF. The reference range was not used to interpret this result as normal/abnormal. BACTERIA (test code = 1701826164) Moderate Negative A MUCOUS (test code = 8093394946) Slight Negative LPF A SQ EPITH (test code = 6017870682) HPF YEAST BUD (test code = 1850785933) See_Comment H [Automated messa ge] The system which generated this result transmitted reference range: <=1 HPF. The reference range was not used to interpret this result as normal/abnormal. Ictotest (test code = 9539825498) Negative Lab Interpretation (test code = 85538-0) [facility] (67684)2021-01-12 08:49:44* Test Item Value Reference Range Interpretation Comme nts NA (test code = 7671146997) 137 mmol/L 135-145 K (test code = 9817145118) 4.6 mmol/L 3.5-5.0 CL (test code = 9038255610) 108 mmol/L 98-108 CO2 TOTAL (test code = 4910025736) 21 mmol/L 23-31 L AGAP (test code = 8753642022) 2-16 BUN (test code = 0287539668) 19 mg/dL 7-23 GLUCOSE (test code = 0840353465) 107 mg/dL 70-110 CREATININE (test code = 9620265478) 0.63 mg/dL 0.50-1.04 TOTAL BILI (test code = 1112909850) 0.4 mg/dL 0.1-1.1 CALCIUM (test code = 4946632194) 9.2 mg/dL 8.6-10.6 T PROTEIN (test code = 2383158538) 7.4 g/dL 6.3-8.2 ALBUMIN (test code = 9035710488) 4.2 g/dL 3.5-5.0 ALK PHOS (test code = 1337107005) 179 U/L 34-122 H ALTv (test code = 1742-6) 113 U/L 5-35 H AST(SGOT) (test code = 1634763188) 38 U/L 13-40 eGFR (test code = 7334903905) mL/min/1.73m2 DARWIN (test code = DARWIN) Association [...] imaging tests). Lab Interpretation (test code = 41076-9) Abnormal [facility] WITH [id number] 08:11:02* Test Item Value Reference Range Interpretation Comme nts WBC (test code = 6690-2) See_Comment H [Automated [employer]] The system which generated this result transmitted reference range: 4.30 - 11.10 10*3/?L. The reference range was not used to interpret this result as normal/abnormal. RBC (test code = 789-8) See_Comment [[employer]] The system which generated this result transmitted [...] 33.3 g/dL 31.6-35.1 RDW-SD (test code = 35447-6) 41.6 fL 39.0-49.9 RDW-CV (test code = 788-0) 14.0 % 12.0-15.5 PLT (test code = 777-3) See_Comment [Automated messa ge] The system which generated this result transmitted reference range: 166 - 358 10*3/?L. The reference range was not used to interpret this result as normal/abnormal. MPV (test code = 80472-7) 9.5 fL 9.5-12.9 NRBC/100 WBC (test code = 3495863848) See_Comment [Automated me ssage] The system which generated this result transmitted reference range: 0.0 - 10.0 /100 WBCs. The reference range was not used to interpret this result as normal/abnormal. NRBC x10^3 (test code = 2801184340) <0.01 See_Comment [Automated messa ge] The system which generated this result transmitted reference range: 10*3/?L. The reference range was not used to interpret this result as normal/abnormal. GRAN MAT (NEUT) % (test code = 770-8) 68.0 % IMM GRAN % (test code = 7970020983) 0.80 % LYMPH % (test code = 736-9) 23.6 % MONO % (test code = 5905-5) 5.1 % EOS % (test code = 713-8) 2.1 % BASO % (test code = 706-2) 0.4 % GRAN MAT x10^3(ANC) (test code = 9358286785) 8.86 10*3/uL 1.88-7.09 H IMM GRAN x10^3 (test code = 4197650513) 0.11 10*3/uL 0.00-0.06 H LYMPH x10^3 (test code = 731-0) 3.07 10*3/uL 1.32-3.29 MONO x10^3 (test code = 742-7) 0.66 10*3/uL 0.33-0.92 EOS x10^3 (test code = 711-2) 0.27 10*3/uL 0.03-0.39 BASO x10^3 (test code = 704-7) 0.05 10*3/uL 0.01-0.07 Lab Interpretation (test code = 41362-5) Abnormal [facility] [id number] 08:02:00* Test Item Value Reference Range Interpretation Comme nts POCT PREG (test code = 1605) negative On board controls acceptable with C Line (test code = 3574) positive POCT PREG LOT # (test code = 3575) [id number] POCT PREG TEST DATE ( test code = 3576) 07/07/2022 Lab Interpretation (test cod e = 57872-6) [id number] 01:55:05* Test Item Value Reference Range Interpretation Comme nts TROPONIN I (test code = 3829038969) 0.000 ng/mL See_Comment [Automated message] The system [...] biotin. ? Lab Interpretation (test code = 49086-4) Normal [facility] 1 Rqtp8789-00-27 23:41:46No radiographic evidence of an acute cardiopulmonary process. RL: 2109AFC: 92241 EXAM: XR CHEST 1 VW ORDERING PROVIDER: [...] evidence of an acute cardiopulmonary process.RL: 2109AFC: 33919 [facility] [id number] 23:07:21* Test Item Value Reference Range Interpretation Comme [facility] TROPONIN I (test code = 3560885815) 0.000 ng/mL See_Comment [Automated message] The system [...] biotin. ? Lab Interpretation (test code = 61323-4) Normal [facility] LVY-QHA5409-54-05 23:04:20* Test Item Value Reference Range Interpretation Comme nts NT-proBNP (test code = 5626238637) 14 pg/mL See_Comment [Automated message] The system which generated this result transmitted reference range: <=125. The reference range was not used to interpret this result as normal/abnormal. DARWIN (test code = DARWIN) Biotin has been reported to cause a negative bias, interpret results relative to patient's use of biotin. Lab Interpretation (test code = 48052-5) Normal [facility]enton[facility] Function [facility] (ALB, T.PRO, BILI T, BU/BC, ALT, AST, ALK PHOS)2020-12-10 22:58:16* Test Item Value Reference Range Interpretation Comme nts TOTAL BILI (test code = 3878422530) 0.5 mg/dL 0.1-1.1 BILI UNCON (test code = 9519008469) 0.3 mg/dL 0.1-1.1 BILI CONJ (test code = 8077418284) 0.0 mg/dL 0.0-0.3 T PROTEIN (test code = 5349082900) 8.1 g/dL 6.3-8.2 ALBUMIN (test code = 8094240470) 4.7 g/dL 3.5-5.0 ALK PHOS (test code = 4249487782) 104 U/L 34-122 ALTv (test code = 1742-6) 18 U/L 5-35 AST(SGOT) (test code = 8155754821) 23 U/L 13-40 Lab Interpretation (test cod e = 25077-2) Normal [facility] Met[facility] (NA, K, CL, CO2, GLUCOSE, BUN, CREATININE, CA)2020-12-10 22:57:56* Test Item Value Reference Range Interpretation Comme nts NA (test code = 3034548532) 135 mmol/L 135-145 K (test code = 6851927552) 3.7 mmol/L 3.5-5.0 CL (test code = 5855343413) 105 mmol/L 98-108 CO2 TOTAL (test code = 0898322441) 18 mmol/L 23-31 L AGAP (test code = 1262590395) 2-16 BUN (test code = 1811717201) 14 mg/dL 7-23 GLUCOSE (test code = 5944538663) 108 mg/dL 70-110 CREATININE (test code = 0425680753) 0.56 mg/dL 0.50-1.04 CALCIUM (test code = 2992851527) 9.8 mg/dL 8.6-10.6 eGFR (test code = 5302439135) mL/min/1.73m2 DARWIN (test code = DARWIN) Association [...] imaging tests). Lab Interpretation (test code = 77985-9) [facility] BranchLipase Lnpfw2694-99-98 22:57:56* Test Item Value Reference Range Interpretation Comme nts LIPASE (test code = 8879909112) 122 U/L 0-220 Lab Interpretation (test cod e = 88757-7) Normal [facility] DentonD-WHSHJ9165-10-57 22:52:34* Test Item Value Reference Range Interpretation Comments D-DIMER (test code = 1782139868) See_Comment [Automated message] The system which generated [...] a diagnosis. Lab Interpretation (test code = 09604-8) Normal [facility]entonUrinalysis2021-06-05 22:52:29* Test Item Value Reference Range Interpretation Comme nts APPEARANCE (test code = 1547990594) Hazy Clear A COLOR (test code = 8246021117) Yellow Yellow PH (test code = 6463507426) 4.8-8.0 SP GRAVITY (test code = 9420952177) 1.003-1.030 GLU U QUAL (test code = 8141687550) Normal Normal BLOOD (test code = 9538058446) Negative Negative KETONES (test code = 5190992128) Negative Negative PROTEIN (test code = 2887-8) Negative Negative UROBILIN (test code = 9695044617) Normal Normal BILIRUBIN (test code = 5973030278) 2 mg/dL Negative A NITRITE (test code = 3002606354) Negative Negative LEUK MARC (test code = 6538451687) 25/uL Negative A RBC/HPF (test code = 3795213870) See_Comment [Automated messa ge] The system which generated this result transmitted reference range: 0 - 3 HPF. The reference range was not used to interpret this result as normal/abnormal. WBC/HPF (test code = 2704358364) See_Comment [Automated messa ge] The system which generated this result transmitted reference range: 0 - 5 HPF. The reference range was not used to interpret this result as normal/abnormal. BACTERIA (test code = 7588029439) Few Negative A MUCOUS (test code = 6574083774) Slight Negative LPF A SQ EPITH (test code = 0764033470) HPF Lab Interpretation (test code = 64752-9) Abnormal [facility] with Oytfkplhgofw7534-13-50 22:45:56* Test Item Value Reference Range Interpretation [...] 33.5 g/dL 31.6-35.1 RDW-SD (test code = 99587-2) 40.5 fL 39.0-49.9 RDW-CV (test code = 788-0) 13.3 % 12.0-15.5 PLT (test code = 777-3) See_Comment H [Automated message] The system which generated this result transmitted reference range: 166 - 358 10*3/?L. The reference range was not used to interpret this result as normal/abnormal. MPV (test code = 56480-1) 9.2 fL 9.5-12.9 L NRBC/100 WBC (test code = 7362928635) See_Comment [Automated message] The system which generated this result transmitted reference range: 0.0 - 10.0 /100 WBCs. The reference range was not used to interpret this result as normal/abnormal. NRBC x10^3 (test code = 3838699340) <0.01 See_Comment [Automated message] The system which generated this result transmitted reference range: 10*3/?L. The reference range was not used to interpret this result as normal/abnormal. GRAN MAT (NEUT) % (test code = 770-8) 73.4 % IMM GRAN % (test code = 6154738692) 0.50 % LYMPH % (test code = 736-9) 17.5 % MONO % (test code = 5905-5) 6.5 % EOS % (test code = 713-8) 1.6 % BASO % (test code = 706-2) 0.5 % GRAN MAT x10^3(ANC) (test code = 2267023450) 10.21 10*3/uL 1.88-7.09 H IMM GRAN x10^3 (test code = 3215747066) 0.07 10*3/uL 0.00-0.06 H LYMPH x10^3 (test code = 731-0) 2.44 10*3/uL 1.32-3.29 MONO x10^3 (test code = 742-7) 0.90 10*3/uL 0.33-0.92 EOS x10^3 (test code = 711-2) 0.22 10*3/uL 0.03-0.39 BASO x10^3 (test code = 704-7) 0.07 10*3/uL 0.01-0.07 Lab Interpretation (test code = 23698-2) Abnormal [facility] Sqgd4687-26-47 22:32:00* Test Item Value Reference Range Interpretation Comme nts POCT PREG (test code = 1605) negative On board controls acceptable with C Line (test code = 3574) present POCT PREG LOT # (test code = 3575) [id number] POCT PREG TEST DATE ( test code = 3576) 06/06/2022 Lab Interpretation (test cod e = 06351-9) Normal [facility]entonUrinalysis2021-05-30 21:34:43* Test Item Value Reference Range Interpretation Comme nts APPEARANCE (test code = 3552311525) Clear Clear COLOR (test code = 8113943755) Yellow Yellow PH (test code = 0448872342) 4.8-8.0 SP GRAVITY (test code = 6017651122) 1.003-1.030 GLU U QUAL (test code = 3426957652) Normal Normal BLOOD (test code = 5024206840) Negative Negative KETONES (test code = 9177552483) Negative Negative PROTEIN (test code = 2887-8) Negative Negative UROBILIN (test code = 7537645313) Normal Normal BILIRUBIN (test code = 2440519070) Negative Negative NITRITE (test code = 7915554439) Negative Negative LEUK MARC (test code = 0337473344) Negative Negative RBC/HPF (test code = 1616206602) See_Comment [Automated messa ge] The system which generated this result transmitted reference range: 0 - 3 HPF. The reference range was not used to interpret this result as normal/abnormal. WBC/HPF (test code = 7731689073) <1 See_Comment [Automated messa ge] The system which generated this result transmitted reference range: 0 - 5 HPF. The reference range was not used to interpret this result as normal/abnormal. BACTERIA (test code = 8906603028) Negative Negative MUCOUS (test code = 6451177898) Slight Negative LPF A SQ EPITH (test code = 2015678686) HPF Lab Interpretation (test code = 74188-2) Abnormal [facility]entonPOCT Zyus2469-86-88 21:18:00* Test Item Value Reference Range Interpretation Comme nts POCT PREG (test code = 1605) negative On board controls acceptable with C Line (test code = 3574) present POCT PREG LOT # (test code = 3575) [id number] POCT PREG TEST DATE ( test code = 3576) 06/06/2022 Lab Interpretation (test cod e = 36300-7) Normal [facility] DentonXR ANKLE 3+ VW JTZI6732-55-96 21:11:00No acute bony abnormality. Preliminary Report Dictated by Resident: Ali Regulo Domínguez MD., have reviewed this study and agree [...] reviewed this study and agree with the abovereport.[facility] P7628-65-14 20:59:44* Test Item Value Reference Range Interpretation Comme nts TROPONIN I (test code = 9286712929) 0.000 ng/mL See_Comment [Automated message] The system [...] biotin. ? Lab Interpretation (test code = 35877-5) Normal [facility] DentonLipase Ywtoy7348-74-92 20:48:20* Test Item Value Reference Range Interpretation Comme nts LIPASE (test code = 5783582564) 96 U/L 0-220 Lab Interpretation (test cod e = 24214-4) Normal [facility]entonBasic Metabolic Panel (NA, K, CL, CO2, GLUCOSE, BUN, CREATININE, CA)2020-12-04 20:48:20* Test Item Value Reference Range Interpretation Comme nts NA (test code = 4435969603) 138 mmol/L 135-145 K (test code = 2402359464) 3.8 mmol/L 3.5-5.0 CL (test code = 2451630781) 108 mmol/L 98-108 CO2 TOTAL (test code = 5914371208) 21 mmol/L 23-31 L AGAP (test code = 9328742750) 2-16 BUN (test code = 1068770372) 13 mg/dL 7-23 GLUCOSE (test code = 7006043133) 107 mg/dL 70-110 CREATININE (test code = 1288772367) 0.66 mg/dL 0.50-1.04 CALCIUM (test code = 4715514746) 9.3 mg/dL 8.6-10.6 eGFR (test code = 6165235543) mL/min/1.73m2 DARWIN (test code = DARWIN) Association [...] imaging tests). Lab Interpretation (test code = 15017-1) Abnormal [facility]entonHepatic Function Panel (ALB, T.PRO, BILI T, BU/BC, ALT, AST, ALK PHOS)2020-12-04 20:48:20* Test Item Value Reference Range Interpretation Comme nts TOTAL BILI (test code = 6122436569) 0.3 mg/dL 0.1-1.1 BILI UNCON (test code = 0936234659) 0.1 mg/dL 0.1-1.1 BILI CONJ (test code = 2860143699) 0.0 mg/dL 0.0-0.3 T PROTEIN (test code = 9877121448) 7.0 g/dL 6.3-8.2 ALBUMIN (test code = 5753258681) 4.0 g/dL 3.5-5.0 ALK PHOS (test code = 0683101590) 114 U/L 34-122 ALTv (test code = 1742-6) 30 U/L 5-35 AST(SGOT) (test code = 4067473321) 23 U/L 13-40 Lab Interpretation (test cod e = 45814-2) Normal [facility] DentonCB with Xggzwsibxwto4790-88-39 20:35:01* Test Item Value Reference Range Interpretation Comme nts WBC (test code = 6690-2) See_Comment [Automated [employer]] The system which generated this result transmitted reference range: 4.30 - 11.10 10*3/?L. The reference range was not used to interpret this result as normal/abnormal. RBC (test code = 789-8) See_Comment [Automated [employer]] The system which generated this result [...] 34.0 g/dL 31.6-35.1 RDW-SD (test code = 06742-8) 39.8 fL 39.0-49.9 RDW-CV (test code = 788-0) 12.9 % 12.0-15.5 PLT (test code = 777-3) See_Comment [Automated [employer]] The system which generated this result transmitted reference range: 166 - 358 10*3/?L. The reference range was not used to interpret this result as normal/abnormal. MPV (test code = 47469-9) 9.3 fL 9.5-12.9 L NRBC/100 WBC (test code = 7116421496) See_Comment [Automated [employer] ssage] The system which generated this result transmitted reference range: 0.0 - 10.0 /100 WBCs. The reference range was not used to interpret this result as normal/abnormal. NRBC x10^3 (test code = 4049069446) <0.01 See_Comment [Automated [employer]] The system which generated this result transmitted reference range: 10*3/?L. The reference range was not used to interpret this result as normal/abnormal. GRAN MAT (NEUT) % (test code = 770-8) 71.5 % IMM GRAN % (test code = 5436187332) 0.30 % LYMPH % (test code = 736-9) 19.8 % MONO % (test code = 5905-5) 6.2 % EOS % (test code = 713-8) 1.8 % BASO % (test code = 706-2) 0.4 % GRAN MAT x10^3(ANC) (test code = 3421319534) 6.79 10*3/uL 1.88-7.09 IMM GRAN x10^3 (test code = 9966475165) 0.03 10*3/uL 0.00-0.06 LYMPH x10^3 (test code = 731-0) 1.88 10*3/uL 1.32-3.29 MONO x10^3 (test code = 742-7) 0.59 10*3/uL 0.33-0.92 EOS x10^3 (test code = 711-2) 0.17 10*3/uL 0.03-0.39 BASO x10^3 (test code = 704-7) 0.04 10*3/uL 0.01-0.07 Lab Interpretation (test code = 05539-0) Abnormal [facility] (URINE)2020-11-04 02:54:38* Test Item Value Reference Range Interpretation Comme nts AMPHET (test code = 8779402609) Negative Negative Cocaine Metabolite (test code = 2531845527) Negative Negative OPIATES (test code = 4344420476) Presumptive Positive Negative A THC (test code = 9605830812) Negative Negative DARWIN (test code = DARWIN) Urine Drug Cutoff Ranges Amphetamine: ? 1,000 ng/mLCocaine: ? 150 ng/mLOpiates: ? 300 ng/mLCannabinoids: ?50 ng/mL The results are to be used only for medical (i.e., treatment) purposes. Unconfirmed screening results must not be used for non-medical purposes (e.g., employment testing, legal testing). Lab Interpretation (test code = 64253-6) Abnormal [facility]entonTROPONIN [id number] 02:51:11* Test Item Value Reference Range Interpretation Comme nts TROPONIN I (test code = 5902605033) 0.001 ng/mL See_Comment [Automated message] The system [...] biotin. ? Lab Interpretation (test code = 63197-3) Normal [facility] DentonaPTT2021-04-30 02:41:10* Test Item Value Reference Range Interpretation Comme nts APTT Patient (test code = 3173-2) See_Comment [Automated message] The system which generated this result transmitted reference range: 23 - 38 Seconds. The reference range was not used to interpret this result as normal/abnormal. DARWIN (test code = DARWIN) The [facility] patient population mean normal value for aPTT is 30 seconds. Lab Interpretation (test code = 58477-7) Normal [facility]entonURINALYSIS2021-04-30 02:40:40* Test Item Value Reference Range Interpretation Comme nts APPEARANCE (test code = 1862354700) Clear Clear COLOR (test code = 2813392078) Yellow Yellow PH (test code = 1973420038) 4.8-8.0 SP GRAVITY (test code = 0489422617) 1.003-1.030 GLU U QUAL (test code = 9437291832) Normal Normal BLOOD (test code = 1557611697) Negative Negative KETONES (test code = 8232968990) Negative Negative PROTEIN (test code = 2887-8) Negative Negative UROBILIN (test code = 3527545518) Normal Normal BILIRUBIN (test code = 9102700012) Negative Negative NITRITE (test code = 7762682873) Negative Negative LEUK MARC (test code = 1073367507) Negative Negative RBC/HPF (test code = 9900716507) <1 See_Comment [Automated [employer]] The system which generated this result transmitted reference range: 0 - 3 HPF. The reference range was not used to interpret this result as normal/abnormal. WBC/HPF (test code = 2820203082) <1 See_Comment [Automated messa ge] The system which generated this result transmitted reference range: 0 - 5 HPF. The reference range was not used to interpret this result as normal/abnormal. BACTERIA (test code = 0293844758) Negative Negative MUCOUS (test code = 0773733498) Slight Negative LPF A SQ EPITH (test code = 2621734254) HPF Lab Interpretation (test code = 10226-3) Abnormal [facility]. METABOLIC PANEL (34028)2020-11-04 02:40:09* Test Item Value Reference Range Interpretation Comme nts NA (test code = 9672352589) 141 mmol/L 135-145 K (test code = 8516230980) 4.1 mmol/L 3.5-5.0 CL (test code = 3685299243) 110 mmol/L 98-108 H CO2 TOTAL (test code = 4249824969) 22 mmol/L 23-31 L AGAP (test code = 3901350134) 2-16 BUN (test code = 7297004635) 15 mg/dL 7-23 GLUCOSE (test code = 0485735112) 115 mg/dL 70-110 H CREATININE (test code = 7748030030) 0.69 mg/dL 0.50-1.04 TOTAL BILI (test code = 5537867913) 0.2 mg/dL 0.1-1.1 CALCIUM (test code = 0374275710) 9.2 mg/dL 8.6-10.6 T PROTEIN (test code = 5113482425) 6.8 g/dL 6.3-8.2 ALBUMIN (test code = 7029663401) 4.1 g/dL 3.5-5.0 ALK PHOS (test code = 7534162291) 69 U/L 34-122 ALTv (test code = 1742-6) 20 U/L 5-35 AST(SGOT) (test code = 3647272879) 23 U/L 13-40 eGFR (test code = 1006684858) mL/min/1.73m2 DARWIN (test code = DARWIN) Association [...] imaging tests). Lab Interpretation (test code = 59417-8) Abnormal [facility] DentonLIPASE, DNEYR7972-87-61 02:39:49* Test Item Value Reference Range Interpretation Comme [facility] LIPASE (test code = 7936366684) 117 U/L 0-220 Lab Interpretation (test cod e = 81015-2) Normal [facility] DentonPROTHROMBIN TIME / [id number] 02:39:08* Test Item Value Reference Range Interpretation Comme [facility] PROTIME PATIENT (test code = 5964-2) See_Comment [Automated messa ge] The system which generated this result transmitted reference range: 12.0 - 14.7 Seconds. The reference range was not used to interpret this result as normal/abnormal. INR (test code = 6301-6) Normal INR <1.1; Warfarin Therapeutic range 2.0 to 3.0 or 2.5 to 3.5, depending upon the indications. Lab Interpretation (test code = 47484-6) Normal [facility] WITH [id number] 02:30:11* Test Item Value Reference Range Interpretation Comme nts WBC (test code = 6690-2) See_Comment H [Automated messa ge] The system which generated this result transmitted reference range: 4.30 - 11.10 10*3/?L. The reference range was not used to interpret this result as normal/abnormal. RBC (test code = 789-8) See_Comment [Automated [employer]] The system which generated this result [...] 32.8 g/dL 31.6-35.1 RDW-SD (test code = 86429-3) 44.1 fL 39.0-49.9 RDW-CV (test code = 788-0) 13.8 % 12.0-15.5 PLT (test code = 777-3) See_Comment [Automated messa ge] The system which generated this result transmitted reference range: 166 - 358 10*3/?L. The reference range was not used to interpret this result as normal/abnormal. MPV (test code = 33091-7) 9.6 fL 9.5-12.9 NRBC/100 WBC (test code = 0067312274) See_Comment [Automated [employer] ssage] The system which generated this result transmitted reference range: 0.0 - 10.0 /100 WBCs. The reference range was not used to interpret this result as normal/abnormal. NRBC x10^3 (test code = 4443975408) <0.01 See_Comment [Automated messa ge] The system which generated this result transmitted reference range: 10*3/?L. The reference range was not used to interpret this result as normal/abnormal. GRAN MAT (NEUT) % (test code = 770-8) 65.9 % IMM GRAN % (test code = 0808073284) 0.70 % LYMPH % (test code = 736-9) 25.9 % MONO % (test code = 5905-5) 5.1 % EOS % (test code = 713-8) 2.0 % BASO % (test code = 706-2) 0.4 % GRAN MAT x10^3(ANC) (test code = 3942585703) 8.82 10*3/uL 1.88-7.09 H IMM GRAN x10^3 (test code = 7928931095) 0.09 10*3/uL 0.00-0.06 H LYMPH x10^3 (test code = 731-0) 3.46 10*3/uL 1.32-3.29 H MONO x10^3 (test code = 742-7) 0.68 10*3/uL 0.33-0.92 EOS x10^3 (test code = 711-2) 0.27 10*3/uL 0.03-0.39 BASO x10^3 (test code = 704-7) 0.05 10*3/uL 0.01-0.07 Lab Interpretation (test code = 72377-7) [facility] (ID NOW RAPID TESTING)2020-09-17 16:56:05* Test Item Value Reference Range Interpretation Comme nts SARS-CoV-2 Rapid ID NOW (test code = 89114-4) Not Detected Not Detected DARWIN (test code = DARWIN) ID NOW COVID-19 As say is an isothermal nucleic acid amplification test intended for the qualitative detection of nucleic acid from SARS-CoV-2 viral RNA in nasopharyngeal ([employer]) specimens. It is used under Emergency Use [...] clinically indicated. Lab Interpretation (test code = 13706-6) Normal [facility]enton[facility]APID STREP SCREEN FOR GROUP [id number] 16:54:09* Test Item Value Reference Range Interpretation Comme nts Streptococcus pyogenes (grou p A) antigen (test code = 09756-6) Negative Negative Lab Interpretation (test cod e = 32404-6) Normal [facility]entonXR [facility] 3+ VW [id number] 07:29:48 Impression: No acute fracture or dislocation. RL: 2824AFC: [id number] End of Report Exam: Left Hand, 09/07/2020 [...] swelling.IMPRESSIONImpression: No acute fracture or dislocation.RL: 2824AFC: 16249Agv of [facility] 2 VW [id number] 07:28:55No acute abnormality of the left forearm. RL: 6200AFC: 13262 Patient name: CHARITY MONROYOB: 1980 40 years [...] acute abnormality of the left forearm.RL: 6200AFC: 79274 [facility]:06[facility]* Test Item Value Reference Range Interpretation Comme nts APPEARANCE (test code = 8805772006) Hazy Clear A COLOR (test code = 9488113195) Yellow Yellow PH (test code = 1056187496) 4.8-8.0 SP GRAVITY (test code = 5901239840) 1.003-1.030 GLU U QUAL (test code = 0555204761) Normal Normal BLOOD (test code = 3257456233) Negative Negative KETONES (test code = 6457046606) Negative Negative PROTEIN (test code = 2887-8) Negative Negative UROBILIN (test code = 3667655644) Normal Normal BILIRUBIN (test code = 4511414550) Negative Negative NITRITE (test code = 3757204638) Negative Negative LEUK MARC (test code = 1358501131) Negative Negative RBC/HPF (test code = 2611492031) See_Comment [Automated [employer]] The system which generated this result transmitted reference range: 0 - 3 HPF. The reference range was not used to interpret this result as normal/abnormal. WBC/HPF (test code = 0004473684) <1 See_Comment [Automated messa ge] The system which generated this result transmitted reference range: 0 - 5 HPF. The reference range was not used to interpret this result as normal/abnormal. BACTERIA (test code = 2662226866) Moderate Negative A SQ EPITH (test code = 3006958311) HPF Lab Interpretation (test code = 05873-5) Abnormal [facility] with Mbtpoywqiqdd4086-37-69 08:50:00* Test Item Value Reference Range Interpretation [...] 34.0 g/dL 31.6-35.1 RDW-SD (test code = 24910-0) 42.6 fL 39-49.9 RDW-CV (test code = 788-0) 13.6 % 12-15.5 PLT (test code = 777-3) See_Comment H [Automated messa ge] The system which generated this result transmitted reference range: 166 - 358 10*3/?L. The reference range was not used to interpret this result as normal/abnormal. MPV (test code = 05500-7) 9.7 fL 9.5-12.9 NRBC/100 WBC (test code = 1878695445) See_Comment [Automated me ssage] The system which generated this result transmitted reference range: 0.0 - 10.0 /100 WBCs. The reference range was not used to interpret this result as normal/abnormal. NRBC x10^3 (test code = 1749438722) <0.01 See_Comment [Automated messa ge] The system which generated this result transmitted reference range: 10*3/?L. The reference range was not used to interpret this result as normal/abnormal. GRAN MAT (NEUT) % (test code = 770-8) 49.7 % IMM GRAN % (test code = 7101941428) 0.50 % LYMPH % (test code = 736-9) 41.0 % MONO % (test code = 5905-5) 6.5 % EOS % (test code = 713-8) 1.9 % BASO % (test code = 706-2) 0.4 % GRAN MAT x10^3(ANC) (test code = 9916288391) 6.39 10*3/uL 1.88-7.09 IMM GRAN x10^3 (test code = 3368878742) 0.07 10*3/uL 0-0.06 H LYMPH x10^3 (test code = 731-0) 5.27 10*3/uL 1.32-3.29 H MONO x10^3 (test code = 742-7) 0.84 10*3/uL 0.33-0.92 EOS x10^3 (test code = 711-2) 0.24 10*3/uL 0.03-0.39 BASO x10^3 (test code = 704-7) 0.05 10*3/uL 0.01-0.07 Lab Interpretation (test code = 67368-6) [facility]normal [facility]PO[facility] Osls0382-42-28 08:45:00* Test Item Value Reference Range Interpretation Comme nts POCT PREG (test code = 1605) neg On board controls acceptable with C Line (test code = 3574) yes POCT PREG LOT # (test code = 3575) [id number] POCT PREG TEST DATE ( test code = 3576) 04/06/2022 Lab Interpretation (test cod e = 11427-5) Normal [facility]entonComplete Metabolic Zhmgc4829-50-27 08:30:00* Test Item Value Reference Range Interpretation Comme nts NA (test code = 9422877039) 137 mmol/L 135-145 K (test code = 6732362682) 3.3 mmol/L 3.5-5 L CL (test code = 7109312602) 102 mmol/L 98-108 CO2 TOTAL (test code = 9272503206) 24 mmol/L 23-31 AGAP (test code = 5867716832) 2-16 BUN (test code = 2516337442) 9 mg/dL 7-23 GLUCOSE (test code = 7908927924) 116 mg/dL 70-110 H CREATININE (test code = 1820152173) 0.48 mg/dL 0.5-1.04 L TOTAL BILI (test code = 3248731456) 0.3 mg/dL 0.1-1.1 CALCIUM (test code = 5311884212) 9.4 mg/dL 8.6-10.6 T PROTEIN (test code = 4156505907) 7.0 g/dL 6.3-8.2 ALBUMIN (test code = 8690097904) 4.3 g/dL 3.5-5 ALK PHOS (test code = 0056268678) 127 U/L 34-122 H ALTv (test code = 1742-6) 87 U/L 5-35 H AST(SGOT) (test code = 6639868895) 34 U/L 13-40 eGFR Calculation (Non-) (test code = 8277536237) mL/min/1.73m2 eGFR Calculation () (test code = 4307474958) mL/min/1.73m2 DARWIN (test code = DARWIN) Association [...] imaging tests). Lab Interpretation (test code = 37834-3) Abnormal [facility] DentonLipase, Jcdfa4821-60-05 08:30:00* Test Item Value Reference Range Interpretation Comme nts LIPASE (test code = 0519113600) 297 U/L 0-220 H Lab Interpretation (test cod e = 02347-1) Abnormal [facility]entonURINALYSIS2021-02-07 19:25:00* Test Item Value Reference Range Interpretation Comme nts APPEARANCE (test code = 5337682211) Clear Clear COLOR (test code = 7677371923) Straw Yellow A PH (test code = 4594014183) 4.8-8.0 SP GRAVITY (test code = 5396547984) 1.003-1.030 GLU U QUAL (test code = 7224775360) Normal Normal BLOOD (test code = 3932557613) 1+ Negative A KETONES (test code = 6872014833) Negative Negative PROTEIN (test code = 2887-8) Negative Negative UROBILIN (test code = 0473387766) Normal Normal BILIRUBIN (test code = 9078066942) Negative Negative NITRITE (test code = 5706202720) Negative Negative LEUK MARC (test code = 7958068146) Negative Negative RBC/HPF (test code = 3074193830) See_Comment [[employer]] The system which generated this result transmitted reference range: 0 - 3 HPF. The reference range was not used to interpret this result as normal/abnormal. WBC/HPF (test code = 5679401166) <1 See_Comment [[employer]] The system which generated this result transmitted reference range: 0 - 5 HPF. The reference range was not used to interpret this result as normal/abnormal. BACTERIA (test code = 3818392213) Few Negative A MUCOUS (test code = 0819042089) Slight Negative LPF A SQ EPITH (test code = 9814350110) HPF Lab Interpretation (test code = 19857-1) Abnormal [facility]entonTROPONIN [id number] 19:09:00* Test Item Value Reference Range Interpretation Comme nts TROPONIN I (test code = 0849561756) <0.012 See_Comment [Automated message] The system which [...] biotin. ? Lab Interpretation (test code = 30113-9) Normal [facility] - DRUG SCREEN JFSNOI6962-76-35 19:09:00* Test Item Value Reference Range Interpretation Comme nts BENZO U (test code = 4640247119) Presumptive Positive Negative A ROSA U (test code = 5957827176) Negative Negative AMPHET (test code = 5529586914) Negative Negative THC (test code = 1378148461) Negative Negative METHADONE (test code = 7974519337) Negative Negative Meth U (test code = 2724316768) Negative Negative OPIATES (test code = 6094894557) Negative Negative Cocaine Metabolite (test code = 6135723294) Negative Negative PROPOXY (test code = 9583566390) Negative Negative Tric U (test code = 0762962777) Negative Negative PCP (test code = 5373758532) Negative Negative OXYCOD (test code = 3772867677) Negative Negative DARWIN (test code = DARWIN) [...] legal testing). Lab Interpretation (test code = 63953-0) Abnormal [facility]entonCOMP. METABOLIC PANEL (04603)2020-08-14 19:01:00* Test Item Value Reference Range Interpretation Comme nts NA (test code = 9125576120) 138 mmol/L 135-145 K (test code = 4496774536) 4.5 mmol/L 3.5-5 CL (test code = 0894951617) 106 mmol/L 98-108 CO2 TOTAL (test code = 5778818547) 21 mmol/L 23-31 L AGAP (test code = 3457160720) 2-16 BUN (test code = 6449883741) 13 mg/dL 7-23 GLUCOSE (test code = 8569973133) 97 mg/dL 70-110 CREATININE (test code = 2050985074) 0.48 mg/dL 0.5-1.04 L TOTAL BILI (test code = 0444993947) 0.4 mg/dL 0.1-1.1 CALCIUM (test code = 5524208349) 9.1 mg/dL 8.6-10.6 T PROTEIN (test code = 1858707374) 7.5 g/dL 6.3-8.2 ALBUMIN (test code = 8005811344) 4.3 g/dL 3.5-5 ALK PHOS (test code = 3405549786) 62 U/L 34-122 ALTv (test code = 1742-6) 19 U/L 5-35 AST(SGOT) (test code = 6423381690) 26 U/L 13-40 eGFR Calculation (Non-) (test code = 7823158719) mL/min/1.73m2 eGFR Calculation () (test code = 5183071269) mL/min/1.73m2 DARWIN (test code = DARWIN) Association [...] imaging tests). Lab Interpretation (test code = 01351-6) Abnormal [facility] DentonLIPASE2021-02-07 19:01:00* Test Item Value Reference Range Interpretation Comme nts LIPASE (test code = 2915008644) 76 U/L 0-220 Lab Interpretation (test cod e = 64696-3) Normal [facility] DentonCB WITH [id number] 18:47:00* Test Item Value Reference Range Interpretation [...] 34.3 g/dL 31.6-35.1 RDW-SD (test code = 16788-4) 42.0 fL 39-49.9 RDW-CV (test code = 788-0) 13.4 % 12-15.5 PLT (test code = 777-3) See_Comment [Automated messa ge] The system which generated this result transmitted reference range: 166 - 358 10*3/?L. The reference range was not used to interpret this result as normal/abnormal. MPV (test code = 85242-9) 9.9 fL 9.5-12.9 NRBC/100 WBC (test code = 0880617580) See_Comment [Automated [employer] ssage] The system which generated this result transmitted reference range: 0.0 - 10.0 /100 WBCs. The reference range was not used to interpret this result as normal/abnormal. NRBC x10^3 (test code = 0876294251) <0.01 See_Comment [Automated messa ge] The system which generated this result transmitted reference range: 10*3/?L. The reference range was not used to interpret this result as normal/abnormal. GRAN MAT (NEUT) % (test code = 770-8) 60.1 % IMM GRAN % (test code = 5638335648) 0.40 % LYMPH % (test code = 736-9) 31.3 % MONO % (test code = 5905-5) 6.0 % EOS % (test code = 713-8) 1.9 % BASO % (test code = 706-2) 0.3 % GRAN MAT x10^3(ANC) (test code = 3684703114) 6.96 10*3/uL 1.88-7.09 IMM GRAN x10^3 (test code = 8735785240) 0.05 10*3/uL 0-0.06 LYMPH x10^3 (test code = 731-0) 3.62 10*3/uL 1.32-3.29 H MONO x10^3 (test code = 742-7) 0.69 10*3/uL 0.33-0.92 EOS x10^3 (test code = 711-2) 0.22 10*3/uL 0.03-0.39 BASO x10^3 (test code = 704-7) 0.04 10*3/uL 0.01-0.07 Lab Interpretation (test code = 79773-2) Abnormal [facility]entonXR CHEST 1 [id number] 18:17:08No acute cardiopulmonary abnormality. Preliminary Report Dictated [...] reviewed this study and agree with theabove report.[facility] DentonLactic Acid Whole Pfplm3060-01-32 18:11:00* Test Item Value Reference Range Interpretation Comme nts LACTIC ACID (test code = 5145602022) 1.95 mmol/L 0.5-2.2 Lab Interpretation (test cod e = 22436-5) Normal [facility]entonCT ABDOMEN PELVIS WO [id number] 05:45:24No acute abdominopelvic abnormality. No urolithiasis. 2.5 [...] stenosis.Preliminary Report Dictated by Resident: Murali Mckenzie, Jnoa Wisdom MD., have reviewed this study and agree with the abovereport.[facility]entonPOCT [id number] 03:10:00* Test Item Value Reference Range Interpretation Comme nts POCT PREG (test code = 1605) Negative On board controls acceptable with C Line (test code = 3574) Present POCT PREG LOT # (test code = 3575) [id number] POCT PREG TEST DATE ( test code = 3576) 03/07/2022 Lab Interpretation (test cod e = 28236-9) Normal [facility] with Kacgeqdqzxov1417-21-11 03:05:00* Test Item Value Reference Range Interpretation [...] 34.7 g/dL 31.6-35.1 RDW-SD (test code = 01276-8) 42.0 fL 39-49.9 RDW-CV (test code = 788-0) 13.5 % 12-15.5 PLT (test code = 777-3) See_Comment [Automated message] The system which generated this result transmitted reference range: 166 - 358 10*3/?L. The reference range was not used to interpret this result as normal/abnormal. MPV (test code = 46620-9) 9.8 fL 9.5-12.9 NRBC/100 WBC (test code = 2081110780) See_Comment [Automated message] The system which generated this result transmitted reference range: 0.0 - 10.0 /100 WBCs. The reference range was not used to interpret this result as normal/abnormal. NRBC x10^3 (test code = 8277463180) <0.01 See_Comment [Automated message] The system which generated this result transmitted reference range: 10*3/?L. The reference range was not used to interpret this result as normal/abnormal. GRAN MAT (NEUT) % (test code = 770-8) 66.2 % IMM GRAN % (test code = 3555556042) 0.60 % LYMPH % (test code = 736-9) 25.4 % MONO % (test code = 5905-5) 5.6 % EOS % (test code = 713-8) 1.9 % BASO % (test code = 706-2) 0.3 % GRAN MAT x10^3(ANC) (test code = 3867140785) 10.64 10*3/uL 1.88-7.09 H IMM GRAN x10^3 (test code = 4124740356) 0.09 10*3/uL 0-0.06 H LYMPH x10^3 (test code = 731-0) 4.09 10*3/uL 1.32-3.29 H MONO x10^3 (test code = 742-7) 0.90 10*3/uL 0.33-0.92 EOS x10^3 (test code = 711-2) 0.31 10*3/uL 0.03-0.39 BASO x10^3 (test code = 704-7) 0.05 10*3/uL 0.01-0.07 Lab Interpretation (test code = 46461-2) Abnormal [facility] DentonUrinalysis2021-02-04 02:56:00* Test Item Value Reference Range Interpretation Comme nts APPEARANCE (test code = 8053195611) Hazy Clear A COLOR (test code = 2204137093) Yellow Yellow PH (test code = 7851376604) 4.8-8.0 SP GRAVITY (test code = 8701588449) 1.003-1.030 GLU U QUAL (test code = 2167262405) Normal Normal BLOOD (test code = 9116147069) Negative Negative KETONES (test code = 3933905538) Negative Negative PROTEIN (test code = 2887-8) Negative Negative UROBILIN (test code = 5185512823) Normal Normal BILIRUBIN (test code = 0955793440) Negative Negative NITRITE (test code = 0721706860) Negative Negative LEUK MARC (test code = 6718515495) Negative Negative RBC/HPF (test code = 0797911410) See_Comment [[employer]ated [employer]] The system which generated this result transmitted reference range: 0 - 3 HPF. The reference range was not used to interpret this result as normal/abnormal. WBC/HPF (test code = 6700103954) See_Comment [Automated [employer]] The system which generated this result transmitted reference range: 0 - 5 HPF. The reference range was not used to interpret this result as normal/abnormal. BACTERIA (test code = 7465843233) Few Negative A MUCOUS (test code = 5295088902) Slight Negative LPF A SQ EPITH (test code = 5508139240) HPF YEAST BUD (test code = 6951511156) See_Comment H [Automated [employer]] The system which generated this result transmitted reference range: <=1 HPF. The reference range was not used to interpret this result as normal/abnormal. Lab Interpretation (test code = 06549-2) Abnormal [facility] [id number] 02:24:00* Test Item Value Reference Range Interpretation Comme nts TROPONIN I (test code = 8436896999) <0.012 See_Comment [Automated message] The system which [...] biotin. ? Lab Interpretation (test code = 40487-1) Normal [facility]COVID-[facility] (ID NOW RAPID TESTING)2020-08-11 02:15:00* Test Item Value Reference Range Interpretation Comme nts SARS-CoV-2 Rapid ID NOW (test code = 69835-1) Not Detected Not Detected DARWIN (test code = DARWIN) ID NOW COVID-19 As say is an isothermal nucleic acid amplification test intended for the qualitative detection of nucleic acid from SARS-CoV-2 viral RNA in nasopharyngeal ([employer] LEAD TEACHER) specimens. It is used under Emergency Use [...] clinically indicated. Lab Interpretation (test code = 90137-8) Normal [facility] DentonBasi Metabolic Panel (NA, K, CL, CO2, GLUCOSE, BUN, CREATININE, CA)2020-08-11 02:13:00* Test Item Value Reference Range Interpretation Comme nts NA (test code = 0686503294) 137 mmol/L 135-145 K (test code = 4966984867) 4.0 mmol/L 3.5-5 CL (test code = 1230029104) 107 mmol/L 98-108 CO2 TOTAL (test code = 4917087600) 19 mmol/L 23-31 L AGAP (test code = 5346228401) 2-16 BUN (test code = 5641438928) 10 mg/dL 7-23 GLUCOSE (test code = 9640466079) 106 mg/dL 70-110 CREATININE (test code = 0311216749) 0.47 mg/dL 0.5-1.04 L CALCIUM (test code = 3037955802) 9.2 mg/dL 8.6-10.6 eGFR Calculation (Non-) (test code = 3837549892) mL/min/1.73m2 eGFR Calculation () (test code = 4150893976) mL/min/1.73m2 DARWIN (test code = DARWIN) Association [...] imaging tests). Lab Interpretation (test code = 92810-1) Abnormal [facility] DentonHepatic Function Panel (ALB, T.PRO, BILI T, BU/BC, ALT, AST, ALK PHOS)2020-08-11 02:13:00* Test Item Value Reference Range Interpretation Comme nts TOTAL BILI (test code = 7838920705) 0.4 mg/dL 0.1-1.1 BILI UNCON (test code = 8493928773) 0.3 mg/dL 0.1-1.1 BILI CONJ (test code = 9368260626) 0.0 mg/dL 0-0.3 T PROTEIN (test code = 0397335128) 7.5 g/dL 6.3-8.2 ALBUMIN (test code = 6351518866) 4.4 g/dL 3.5-5 ALK PHOS (test code = 6641893403) 48 U/L 34-122 ALTv (test code = 1742-6) 12 U/L 5-35 AST(SGOT) (test code = 9713718915) 22 U/L 13-40 Lab Interpretation (test cod e = 84816-3) Normal [facility] DentonLipase Oqkvt3070-46-23 02:13:00* Test Item Value Reference Range Interpretation Comme nts LIPASE (test code = 7630132337) 78 U/L 0-220 Lab Interpretation (test cod e = 23291-7) Normal [facility] DentonLactic Acid Whole Iwpdn7717-10-12 02:05:00* Test Item Value Reference Range Interpretation Comme nts LACTIC ACID (test code = 7049998108) 1.47 mmol/L 0.5-2.2 Lab Interpretation (test cod e = 82233-4) Normal [facility] DentonXR FOREARM 2 VW [id number] 14:31:40No acute bony abnormality. Soft tissue swelling. [...] reviewed this study and agree with the abovereport.[facility]entonCOVID[facility] (ID NOW RAPID TESTING)2020-08-07 14:18:00* Test Item Value Reference Range Interpretation Comme nts SARS-CoV-2 Rapid ID NOW (test code = 69517-0) Not Detected Not Detected DARWIN (test code = DARWIN) ID NOW COVID-19 As say is an isothermal nucleic acid amplification test intended for the qualitative detection of nucleic acid from SARS-CoV-2 viral RNA in nasopharyngeal ([employer] TE[employer]ER) specimens. It is used under Emergency Use [...] clinically indicated. Lab Interpretation (test code = 40250-5) Normal [facility] DentonTROPONIN [id number] 02:54:00* Test Item Value Reference Range Interpretation Comme nts TROPONIN I (test code = 2237373210) <0.012 See_Comment [Automated message] The system which [...] biotin. ? Lab Interpretation (test code = 85458-9) Normal [facility] DentonLIPASE2020-12-25 02:37:00* Test Item Value Reference Range Interpretation Comme nts LIPASE (test code = 3692142485) 76 U/L 0-220 Lab Interpretation (test cod e = 60605-6) Normal [facility] DentonURINALYSIS2020-12-25 01:54:00* Test Item Value Reference Range Interpretation Comme nts APPEARANCE (test code = 6755512822) Clear Clear COLOR (test code = 8172981419) Straw Yellow A PH (test code = 9870409589) 4.8-8.0 SP GRAVITY (test code = 0204022123) 1.003-1.030 GLU U QUAL (test code = 5198118726) Normal Normal BLOOD (test code = 7959271730) 3+ Negative A KETONES (test code = 0440691082) Negative Negative PROTEIN (test code = 2887-8) Negative Negative UROBILIN (test code = 3263080036) Normal Normal BILIRUBIN (test code = 2146363533) Negative Negative NITRITE (test code = 0225090609) Negative Negative LEUK MARC (test code = 6753692902) Negative Negative RBC/HPF (test code = 4153628830) See_Comment [Automated messa ge] The system which generated this result transmitted reference range: 0 - 3 HPF. The reference range was not used to interpret this result as normal/abnormal. WBC/HPF (test code = 6493645368) <1 See_Comment [Automated messa ge] The system which generated this result transmitted reference range: 0 - 5 HPF. The reference range was not used to interpret this result as normal/abnormal. BACTERIA (test code = 9834132677) Few Negative A MUCOUS (test code = 3664697233) Slight Negative LPF A SQ EPITH (test code = 5234467084) HPF Lab Interpretation (test code = 29264-7) Abnormal [facility] WITH [id number] 00:57:00* Test Item Value Reference Range Interpretation [...] 34.0 g/dL 31.6-35.1 RDW-SD (test code = 92928-4) 41.7 fL 39-49.9 RDW-CV (test code = 788-0) 13.2 % 12-15.5 PLT (test code = 777-3) See_Comment [Automated messa ge] The system which generated this result transmitted reference range: 166 - 358 10*3/?L. The reference range was not used to interpret this result as normal/abnormal. MPV (test code = 97168-7) 9.4 fL 9.5-12.9 L NRBC/100 WBC (test code = 9732227234) See_Comment [Automated me ssage] The system which generated this result transmitted reference range: 0.0 - 10.0 /100 WBCs. The reference range was not used to interpret this result as normal/abnormal. NRBC x10^3 (test code = 8306413652) <0.01 See_Comment [Automated messa ge] The system which generated this result transmitted reference range: 10*3/?L. The reference range was not used to interpret this result as normal/abnormal. GRAN MAT (NEUT) % (test code = 770-8) 51.8 % IMM GRAN % (test code = 8070169393) 0.50 % LYMPH % (test code = 736-9) 40.7 % MONO % (test code = 5905-5) 4.0 % EOS % (test code = 713-8) 2.5 % BASO % (test code = 706-2) 0.5 % GRAN MAT x10^3(ANC) (test code = 8415464122) 5.38 10*3/uL 1.88-7.09 IMM GRAN x10^3 (test code = 1510510735) 0.05 10*3/uL 0-0.06 LYMPH x10^3 (test code = 731-0) 4.22 10*3/uL 1.32-3.29 H MONO x10^3 (test code = 742-7) 0.42 10*3/uL 0.33-0.92 EOS x10^3 (test code = 711-2) 0.26 10*3/uL 0.03-0.39 BASO x10^3 (test code = 704-7) 0.05 10*3/uL 0.01-0.07 Lab Interpretation (test code = 47824-4) Abnormal [facility] OR [facility] ONLY - INFLUENZA A & B DIRECT [id number] 00:51:00* Test Item Value Reference Range Interpretation Comme nts Influenza A (test code = 14049-3) Negative Negative Influenza B (test code = 12675-3) Negative Negative Lab Interpretation (test cod e = 80615-3) [id number] 00:51:00* Test Item Value Reference Range Interpretation Comme nts POCT PREG (test code = 1605) negative On board controls acceptable with C Line (test code = 3574) present POCT PREG LOT # (test code = 3575) [id number] POCT PREG TEST DATE ( test code = 3576) 11/04/2021 Lab Interpretation (test cod e = 65028-5) Normal [facility]entonTROPONIN [id number] 00:46:00* Test Item Value Reference Range Interpretation Comme nts TROPONIN I (test code = 7968238634) <0.012 See_Comment [Automated message] The system which [...] biotin. ? Lab Interpretation (test code = 80142-2) Normal [facility] (NA, K, CL, CO2, GLUCOSE, BUN, CREATININE, [place])2020-07-01 00:46:00* Test Item Value Reference Range Interpretation Comme nts NA (test code = 7644135189) 141 mmol/L 135-145 K (test code = 4153012153) 3.8 mmol/L 3.5-5 CL (test code = 2890905967) 108 mmol/L 98-108 CO2 TOTAL (test code = 7461998204) 25 mmol/L 23-31 AGAP (test code = 1182459354) 2-16 BUN (test code = 4552698031) 10 mg/dL 7-23 GLUCOSE (test code = 2956721951) 92 mg/dL 70-110 CREATININE (test code = 1665203642) 0.58 mg/dL 0.5-1.04 CALCIUM (test code = 9400309784) 9.4 mg/dL 8.6-10.6 eGFR Calculation (Non-) (test code = 4648115222) mL/min/1.73m2 eGFR Calculation () (test code = 2853997077) mL/min/1.73m2 DARWIN (test code = DARWIN) Association [...] or urine or abnormalities in imaging tests). [facility] [id number] 00:43:00* Test Item Value Reference Range Interpretation Comme nts NT-proBNP (test code = 3597476533) 332 pg/mL See_Comment H [Automated message] The system which generated this result transmitted reference range: <=125. The reference range was not used to interpret this result as normal/abnormal. DARWIN (test code = DARWIN) Biotin has been reported to cause a negative bias, interpret results relative to patient's use of biotin. Lab Interpretation (test code = 59558-1) Abnormal [facility] CHEST 1 [id number] 00:20:50No acute cardiopulmonary abnormality Preliminary Report Dictated [...] reviewed this study and agree with the abovereport.[facility] CERVICAL SPINE WO [id number] 23:23:[address] EXAMINATION: CT [...] lung apices are unremarkable. IMPRESSIONUnremarkable cervical spine CT.[facility]PO[facility] [id number] 01:50:00* Test Item Value Reference Range Interpretation Comme nts POCT PREG (test code = 1605) Negative On board controls acceptable with C Line (test code = 3574) Present POCT PREG LOT # (test code = 3575) [id number] POCT PREG TEST DATE ( test code = 3576) 10/05/2021 Lab Interpretation (test cod e = 82995-0) Normal [facility] DentonTroponin [id number] 01:24:00* Test Item Value Reference Range Interpretation Comme [facility] TROPONIN I (test code = 5875671520) <0.012 See_Comment [Automated message] The system which [...] biotin. ? Lab Interpretation (test code = 41586-6) Normal [facility]COVID-[facility] (ID NOW RAPID TESTING)2020-06-13 01:22:00* Test Item Value Reference Range Interpretation Comme nts SARS-CoV-2 Rapid ID NOW (test code = 58680-7) Not Detected Not Detected DARWIN (test code = DARWIN) ID NOW COVID-19 As say is an isothermal nucleic acid amplification test intended for the qualitative detection of nucleic acid from SARS-CoV-2 viral RNA in nasopharyngeal ([employer]) specimens. It is used under Emergency Use [...] clinically indicated. Lab Interpretation (test code = 18566-7) Normal [facility] DentonD-[id number] 01:16:00* Test Item Value Reference Range Interpretation Comments D-DIMER (test code = 9677862756) See_Comment [Automated message] The system which generated [...] a diagnosis. Lab Interpretation (test code = 43375-0) Normal [facility] Metabolic Panel (NA, K, CL, CO2, GLUCOSE, BUN, CREATININE, [place])2020-06-13 01:13:00* Test Item Value Reference Range Interpretation Comme nts NA (test code = 6082732373) 137 mmol/L 135-145 K (test code = 0321292091) 4.2 mmol/L 3.5-5 CL (test code = 7915006700) 103 mmol/L 98-108 CO2 TOTAL (test code = 1673759383) 25 mmol/L 23-31 AGAP (test code = 4749031805) 2-16 BUN (test code = 5626072236) 11 mg/dL 7-23 GLUCOSE (test code = 7217643683) 98 mg/dL 70-110 CREATININE (test code = 2467033621) 0.52 mg/dL 0.5-1.04 CALCIUM (test code = 0790955377) 10.3 mg/dL 8.6-10.6 eGFR Calculation (Non-) (test code = 9693964666) mL/min/1.73m2 eGFR Calculation () (test code = 3742161935) mL/min/1.73m2 DARWIN (test code = DARWIN) Association [...] or urine or abnormalities in imaging tests). [facility]entonHepatic Function Panel (ALB, T.PRO, BILI T, BU/BC, ALT, AST, ALK PHOS)2020-06-13 01:13:00* Test Item Value Reference Range Interpretation Comme nts TOTAL BILI (test code = 3509960699) 0.5 mg/dL 0.1-1.1 BILI UNCON (test code = 6936398681) 0.3 mg/dL 0.1-1.1 BILI CONJ (test code = 0889247921) 0.0 mg/dL 0-0.3 T PROTEIN (test code = 3482566155) 7.3 g/dL 6.3-8.2 ALBUMIN (test code = 7284793561) 4.2 g/dL 3.5-5 ALK PHOS (test code = 2241162852) 85 U/L 34-122 ALTv (test code = 1742-6) 66 U/L 5-35 H AST(SGOT) (test code = 4055521036) 32 U/L 13-40 Lab Interpretation (test cod e = 66508-7) Abnormal [facility] DentonLipase [id number] 01:13:00* Test Item Value Reference Range Interpretation Comme nts LIPASE (test code = 0968452739) 60 U/L 0-220 Lab Interpretation (test cod e = 11181-8) Normal [facility] DentonUrinalysis2020-12-07 01:03:00* Test Item Value Reference Range Interpretation Comme nts APPEARANCE (test code = 0083749848) Clear Clear COLOR (test code = 6303273316) Straw Yellow A PH (test code = 2580677845) 4.8-8.0 SP GRAVITY (test code = 5394465177) 1.003-1.030 GLU U QUAL (test code = 6006360871) Normal Normal BLOOD (test code = 0165451508) Negative Negative KETONES (test code = 7682130361) Negative Negative PROTEIN (test code = 2887-8) Negative Negative UROBILIN (test code = 4313091025) Normal Normal BILIRUBIN (test code = 0049765510) Negative Negative NITRITE (test code = 5496775576) Negative Negative LEUK MARC (test code = 3541812744) Negative Negative RBC/HPF (test code = 4522296805) See_Comment [Automated messa ge] The system which generated this result transmitted reference range: 0 - 3 HPF. The reference range was not used to interpret this result as normal/abnormal. WBC/HPF (test code = 8588227416) See_Comment [Automated messa ge] The system which generated this result transmitted reference range: 0 - 5 HPF. The reference range was not used to interpret this result as normal/abnormal. BACTERIA (test code = 7590611522) Negative Negative MUCOUS (test code = 3715676162) Slight Negative LPF A SQ EPITH (test code = 7314507109) HPF Lab Interpretation (test code = 70453-3) Abnormal [facility] DentonCB with Huxsdelwjlwh5274-06-00 00:55:00* Test Item Value Reference Range Interpretation [...] 34.5 g/dL 31.6-35.1 RDW-SD (test code = 53965-7) 42.5 fL 39-49.9 RDW-CV (test code = 788-0) 13.5 % 12-15.5 PLT (test code = 777-3) See_Comment [Automated messa ge] The system which generated this result transmitted reference range: 166 - 358 10*3/?L. The reference range was not used to interpret this result as normal/abnormal. MPV (test code = 38764-8) 10.1 fL 9.5-12.9 NRBC/100 WBC (test code = 0346761472) See_Comment [Automated [employer] ssage] The system which generated this result transmitted reference range: 0.0 - 10.0 /100 WBCs. The reference range was not used to interpret this result as normal/abnormal. NRBC x10^3 (test code = 6494399186) <0.01 See_Comment [Automated messa ge] The system which generated this result transmitted reference range: 10*3/?L. The reference range was not used to interpret this result as normal/abnormal. GRAN MAT (NEUT) % (test code = 770-8) 61.9 % IMM GRAN % (test code = 0027122918) 0.60 % LYMPH % (test code = 736-9) 30.6 % MONO % (test code = 5905-5) 5.2 % EOS % (test code = 713-8) 1.4 % BASO % (test code = 706-2) 0.3 % GRAN MAT x10^3(ANC) (test code = 5425581563) 8.03 10*3/uL 1.88-7.09 H IMM GRAN x10^3 (test code = 2944402989) 0.08 10*3/uL 0-0.06 H LYMPH x10^3 (test code = 731-0) 3.97 10*3/uL 1.32-3.29 H MONO x10^3 (test code = 742-7) 0.68 10*3/uL 0.33-0.92 EOS x10^3 (test code = 711-2) 0.18 10*3/uL 0.03-0.39 BASO x10^3 (test code = 704-7) 0.04 10*3/uL 0.01-0.07 Lab Interpretation (test code = 68131-9) Abnormal [facility]entonCOVID-[facility] (ID NOW RAPID TESTING)2020-05-17 00:27:00* Test Item Value Reference Range Interpretation Comme nts SARS-CoV-2 Rapid ID NOW (test code = 58981-7) Not Detected Not Detected DARWIN (test code = DARWIN) ID NOW COVID-19 As say is an isothermal nucleic acid amplification test intended for the qualitative detection of nucleic acid from SARS-CoV-2 viral RNA in nasopharyngeal ([employer] TEACHER) specimens. It is used under Emergency Use [...] clinically indicated. Lab Interpretation (test code = 73643-5) Normal [facility] (NA, K, CL, CO2, GLUCOSE, BUN, CREATININE, [place])2020-05-17 00:00:00* Test Item Value Reference Range Interpretation Comme nts NA (test code = 9402797266) 136 mmol/L 135-145 K (test code = 4343789773) 3.6 mmol/L 3.5-5 CL (test code = 0360956023) 103 mmol/L 98-108 CO2 TOTAL (test code = 8266049421) 26 mmol/L 23-31 AGAP (test code = 3059537420) 2-16 BUN (test code = 6490692878) 13 mg/dL 7-23 GLUCOSE (test code = 9293620631) 130 mg/dL 70-110 H CREATININE (test code = 3865841062) 0.58 mg/dL 0.5-1.04 CALCIUM (test code = 4506602767) 9.9 mg/dL 8.6-10.6 eGFR Calculation (Non-) (test code = 5526216130) mL/min/1.73m2 eGFR Calculation () (test code = 8146329689) mL/min/1.73m2 DARWIN (test code = DARWIN) Association [...] imaging tests). Lab Interpretation (test code = 97003-2) Abnormal [facility]enton[facility] Function [facility] (ALB, T.PRO, BILI T, BU/BC, ALT, AST, ALK PHOS)2020-05-17 00:00:00* Test Item Value Reference Range Interpretation Comme nts TOTAL BILI (test code = 2628728265) 0.4 mg/dL 0.1-1.1 BILI UNCON (test code = 2170448827) 0.3 mg/dL 0.1-1.1 BILI CONJ (test code = 2545919187) 0.0 mg/dL 0-0.3 T PROTEIN (test code = 4735579912) 7.3 g/dL 6.3-8.2 ALBUMIN (test code = 6433824596) 4.3 g/dL 3.5-5 ALK PHOS (test code = 4456917505) 118 U/L 34-122 ALTv (test code = 1742-6) 119 U/L 5-35 H AST(SGOT) (test code = 3401567546) 47 U/L 13-40 H Lab Interpretation (test cod e = 88226-2) Abnormal [facility] DentonLipase [id number] 00:00:00* Test Item Value Reference Range Interpretation Comme nts LIPASE (test code = 8082670099) 70 U/L 0-220 Lab Interpretation (test cod e = 61727-0) Normal [facility]entonCB with Pxeabitxwwni8531-26-67 23:49:00* Test Item Value Reference Range Interpretation Comme nts WBC (test code = 6690-2) See_Comment [Automated [employer]] The system which generated this result transmitted reference range: 4.30 - 11.10 10*3/?L. The reference range was not used to interpret this result as normal/abnormal. RBC (test code = 789-8) See_Comment [Automated [employer]] The system which generated this result transmitted [...] 33.3 g/dL 31.6-35.1 RDW-SD (test code = 70934-6) 42.8 fL 39-49.9 RDW-CV (test code = 788-0) 13.5 % 12-15.5 PLT (test code = 777-3) See_Comment [Automated messa ge] The system which generated this result transmitted reference range: 166 - 358 10*3/?L. The reference range was not used to interpret this result as normal/abnormal. MPV (test code = 72317-7) 9.8 fL 9.5-12.9 NRBC/100 WBC (test code = 7500346312) See_Comment [Automated me ssage] The system which generated this result transmitted reference range: 0.0 - 10.0 /100 WBCs. The reference range was not used to interpret this result as normal/abnormal. NRBC x10^3 (test code = 2513510214) <0.01 See_Comment [Automated me ssage] The system which generated this result transmitted reference range: 10*3/?L. The reference range was not used to interpret this result as normal/abnormal. GRAN MAT (NEUT) % (test code = 770-8) 62.5 % IMM GRAN % (test code = 1233747028) 0.50 % LYMPH % (test code = 736-9) 29.8 % MONO % (test code = 5905-5) 5.6 % EOS % (test code = 713-8) 1.1 % BASO % (test code = 706-2) 0.5 % GRAN MAT x10^3(ANC) (test code = 7894971454) 6.65 10*3/uL 1.88-7.09 IMM GRAN x10^3 (test code = 7259318471) 0.05 10*3/uL 0-0.06 LYMPH x10^3 (test code = 731-0) 3.17 10*3/uL 1.32-3.29 MONO x10^3 (test code = 742-7) 0.59 10*3/uL 0.33-0.92 EOS x10^3 (test code = 711-2) 0.12 10*3/uL 0.03-0.39 BASO x10^3 (test code = 704-7) 0.05 10*3/uL 0.01-0.07 [facility] DentonACETAMINOPHEN2020-11-08 08:24:00* Test Item Value Reference Range Interpretation Comme nts ACETAMINOP (test code = 9417818215) 21.0 ug/mL 10-30 DARWIN (test code = DARWIN) Toxic: Greater joan n 200 ug/mL @ 4 hour post ingestion or greater than 50 ug/mL @ 12 hour post ingestion Lab Interpretation (test code = 11951-1) Normal [facility] DentonETHANOL2020-11-08 06:37:00* Test Item Value Reference Range Interpretation Comme nts ALCOHOL (test code = 1384219497) <10 mg/dL DARWIN (test code = DARWIN) <10 Odumxsiq48-890 Toxic>100 Depression of FRAME MAKER>400 Fatalities Reported [facility] DentonBasi Metabolic Panel (NA, K, CL, CO2, GLUCOSE, BUN, CREATININE, [place])2020-05-15 06:35:00* Test Item Value Reference Range Interpretation Comme nts NA (test code = 0912235441) 137 mmol/L 135-145 K (test code = 4208214784) 4.0 mmol/L 3.5-5 CL (test code = 5950864945) 106 mmol/L 98-108 CO2 TOTAL (test code = 2381057504) 25 mmol/L 23-31 AGAP (test code = 1734088668) 2-16 BUN (test code = 6836082976) 9 mg/dL 7-23 GLUCOSE (test code = 6491034587) 95 mg/dL 70-110 CREATININE (test code = 8058240893) 0.53 mg/dL 0.5-1.04 CALCIUM (test code = 2390952395) 9.0 mg/dL 8.6-10.6 eGFR Calculation (Non-) (test code = 3549320441) mL/min/1.73m2 eGFR Calculation () (test code = 7968362156) mL/min/1.73m2 DARWIN (test code = DARWIN) Association [...] or urine or abnormalities in imaging tests). [facility]entonHepatic Function Panel (ALB, T.PRO, BILI T, BU/BC, ALT, AST, ALK PHOS)2020-05-15 06:35:00* Test Item Value Reference Range Interpretation Comme nts TOTAL BILI (test code = 5544793776) 0.4 mg/dL 0.1-1.1 BILI UNCON (test code = 1393573262) 0.2 mg/dL 0.1-1.1 BILI CONJ (test code = 3630719363) 0.0 mg/dL 0-0.3 T PROTEIN (test code = 9884508088) 6.3 g/dL 6.3-8.2 ALBUMIN (test code = 7261989297) 3.8 g/dL 3.5-5 ALK PHOS (test code = 3715454848) 117 U/L 34-122 ALTv (test code = 1742-6) 179 U/L 5-35 H AST(SGOT) (test code = 7266326878) 194 U/L 13-40 H Lab Interpretation (test cod e = 20956-4) Abnormal [facility] DentonLipase Exhpl0450-96-99 06:35:00* Test Item Value Reference Range Interpretation Comme nts LIPASE (test code = 5217681057) 92 U/L 0-220 Lab Interpretation (test cod e = 13247-3) Normal [facility] DentonaPTT2020-11-08 06:22:00* Test Item Value Reference Range Interpretation Comme nts APTT Patient (test code = 3173-2) See_Comment [Automated message] The system which generated this result transmitted reference range: 23 - 38 Seconds. The reference range was not used to interpret this result as normal/abnormal. DARWIN (test code = DARWIN) The [facility] patient population mean normal value for aPTT is 30 seconds. Lab Interpretation (test code = 86933-1) Normal [facility] DentonUrinalysis2020-11-08 06:21:00* Test Item Value Reference Range Interpretation Comme nts APPEARANCE (test code = 3978895266) Clear Clear COLOR (test code = 9462845313) Yellow Yellow PH (test code = 6619715182) 4.8-8.0 SP GRAVITY (test code = 5645587843) 1.003-1.030 GLU U QUAL (test code = 1105165152) Normal Normal BLOOD (test code = 0942454452) Negative Negative KETONES (test code = 7018885126) Negative Negative PROTEIN (test code = 2887-8) Negative Negative UROBILIN (test code = 8035151460) Normal Normal BILIRUBIN (test code = 6534729030) Negative Negative NITRITE (test code = 0466827313) Negative Negative LEUK MARC (test code = 5009185464) Negative Negative RBC/HPF (test code = 5132297204) See_Comment [Automated [employer] ge] The system which generated this result transmitted reference range: 0 - 3 HPF. The reference range was not used to interpret this result as normal/abnormal. WBC/HPF (test code = 5288068697) <1 See_Comment [Automated [employer] ge] The system which generated this result transmitted reference range: 0 - 5 HPF. The reference range was not used to interpret this result as normal/abnormal. BACTERIA (test code = 3606086768) Negative Negative MUCOUS (test code = 9220213949) Slight Negative LPF A SQ EPITH (test code = 6551712908) HPF Lab Interpretation (test code = 98493-8) Abnormal [facility] DentonProthrombin Time (PT) / [id number] 06:20:00 * Test Item Value Reference Range Interpretation Comme [facility] PROTIME PATIENT (test code = 5964-2) See_Comment [Automated messa ge] The system which generated this result transmitted reference range: 12.0 - 14.7 Seconds. The reference range was not used to interpret this result as normal/abnormal. INR (test code = 6301-6) Normal INR <1.1; Warfarin Therapeutic range 2.0 to 3.0 or 2.5 to 3.5, depending upon the indications. Lab Interpretation (test code = 55167-0) Normal [facility]entonAD / [facility] - DRUG SCREEN [id number] 06:19:00* Test Item Value Reference Range Interpretation Comme [facility] BENZO U (test code = 5564190506) Presumptive Positive Negative A ROSA U (test code = 3808627490) Negative Negative AMPHET (test code = 2906768551) Negative Negative THC (test code = 4655778789) Negative Negative METHADONE (test code = 5635178312) Negative Negative Meth U (test code = 1259544524) Negative Negative OPIATES (test code = 1441117038) Negative Negative Cocaine Metabolite (test code = 6642827129) Negative Negative PROPOXY (test code = 8519203943) Negative Negative Tric U (test code = 4475339912) Negative Negative PCP (test code = 1262039988) Negative Negative OXYCOD (test code = 4602621337) Negative Negative DARWIN (test code = DARWIN) [...] legal testing). Lab Interpretation (test code = 53203-5) Abnormal [facility] with Flamxyxhtwlt3320-65-42 06:07:00* Test Item Value Reference Range Interpretation [...] 34.3 g/dL 31.6-35.1 RDW-SD (test code = 00512-6) 43.4 fL 39-49.9 RDW-CV (test code = 788-0) 13.7 % 12-15.5 PLT (test code = 777-3) See_Comment [Automated messa ge] The system which generated this result transmitted reference range: 166 - 358 10*3/?L. The reference range was not used to interpret this result as normal/abnormal. MPV (test code = 90234-0) 9.7 fL 9.5-12.9 NRBC/100 WBC (test code = 4915327131) See_Comment [Automated [employer] ssage] The system which generated this result transmitted reference range: 0.0 - 10.0 /100 WBCs. The reference range was not used to interpret this result as normal/abnormal. NRBC x10^3 (test code = 4658892481) <0.01 See_Comment [Automated messa ge] The system which generated this result transmitted reference range: 10*3/?L. The reference range was not used to interpret this result as normal/abnormal. GRAN MAT (NEUT) % (test code = 770-8) 50.6 % IMM GRAN % (test code = 6897096719) 0.20 % LYMPH % (test code = 736-9) 42.1 % MONO % (test code = 5905-5) 5.5 % EOS % (test code = 713-8) 1.2 % BASO % (test code = 706-2) 0.4 % GRAN MAT x10^3(ANC) (test code = 8491234178) 4.31 10*3/uL 1.88-7.09 IMM GRAN x10^3 (test code = 9702613790) <0.03 0-0.06 LYMPH x10^3 (test code = 731-0) 3.58 10*3/uL 1.32-3.29 H MONO x10^3 (test code = 742-7) 0.47 10*3/uL 0.33-0.92 EOS x10^3 (test code = 711-2) 0.10 10*3/uL 0.03-0.39 BASO x10^3 (test code = 704-7) 0.03 10*3/uL 0.01-0.07 Lab Interpretation (test code = 95144-0) Abnormal [facility]entonPOCT Mhap6018-67-38 05:53:00* Test Item Value Reference Range Interpretation Comme nts POCT PREG (test code = 1605) Negative On board controls acceptable with C Line (test code = 3574) Present POCT PREG LOT # (test code = 3575) HCG [id number] POCT PREG TEST DATE ( test code = 3576) 10/05/2021 Lab Interpretation (test cod e = 38758-4) Normal [facility] History and Physical Notes Date/Time Note Provider [...] the ACR Incidental Findings Committee;Journal of the [employer] Volume 7, Issue 10, Pages 096-415, April 2010). CHEST 1 VW Result Date: [...] process is identified in the chest. RL: [id number] END OF REPORT Assessment and plan: Principal [...] Flako Mercado MD 02/16/2023 IM-INTERNAL MEDICINE STAFF [facility]
== END 2024-08-03 22:40 | disposition home or self-care (01) ==
LOC: ER 18:36
DX: R10.32 Left lower quadrant pain (principal); I25.2 Old myocardial infarction; F17.210 Nicotine dependence, cigarettes, uncomplicated; Z95.818 Presence of other cardiac implants and grafts
CPT/HCPCS: 85025; 81001; 36415; 83735; 81025; 83690; 80053 ×2; 74177; 96375; 96374; 99284; Q9967; J2405; J7030

== ENCOUNTER 2024-08-21 20:45 | Inpatient (IN) | payer OTHER ==
--- OUTSIDE RECORDS SUMMARY | 2024-08-21 21:00 | XMS REPORT | Continuity of Care Document ---
Author Name Unknown Address [address] [facility] [address] [place] [address] [facility] thconnect Address [address] [facility] [place] [address] Support Name Relationship Address Phone RACHEL CASH Father Unknown Unavailable PHYSICIAN, NO Primary Care Physician Unknown Unav ailable MD MORA POLLOCK Emergency Provider [address] [place] [address] JAN COX natural parent [address] [address] MD SHERIDAN MCMANUS Emergency Provider [facility], [place] [address] CHARITY ROCA Guarantor [address] [place] [address] MD [place]IDDH[place] [address] MD AN IRIZARRY Emergency Provider [facility], [place] [address] MD CARLOS SOLANO A Primary Care Physician [address] [facility] [address] [place] [address] OTHER, ENTER NAME IN NOTES Primary Care Physician Unknown Unavailable MD Arelis Kern Emergency Provider [address] [place] [address] MD SHAN BUSCH Attending Provider [address] [place] [address] PIYUSH JUAREZ parent [address] [place] [address] MD TAVARES MG JR, JR. Emergency Provider [address] [place] [address] Leyda Petty Mother Unknown Unavailable Rachel Cox Father [address] [place] [address] one else per patient, No Emergency Contact Unknown Unavailable Rachel Cox Father [address] [place] [address] 1 Personal Relationship Unknown Unavai lable Unavailable Personal Relationship Unknown Unavai lable Rachel Cox [address] [place] [address] PATIENT, NO ONE ELSE PER Personal Relationship Unknown Unavailable Care Team Providers Care Talent Development Coordinator Name Role Phone OTHER, ENTER NAME IN NOTES Primary Care Physicia n Unavailable JÚNIOR FARRELL Attending Clinician Unavailable JOANNE MONTES Attending Clinician Unavailable CONRADO SMITH Attending Clinician Unavailable Saleem EDWARD Attending Clinician Unavailable Saleem EDWARD Attending Clinician Unavailable Saleem Perez Attending Clinician [phone] RADIOLOGY, DEPT Attending Clinician Unavailable MD BEHZAD Attending Clinician Unavailab GISELLE Brink Attending Clinician Unavailable SANDY GARCIA Attending Clinician Unavailable SANDY GARCIA Attending Clinician Unavailable Sandy Walker Attending Clinician [phone] OLIVIA GARCIA Attending Clinician Unavailable OLIVIA GARCIA Attending Clinician Unavailable Olivia Garcia MD Attending Clinician [phone] ANNALISE WRIGHT Attending Clinician Unavailable Annalise Wright PA-C Attending Clinician [phone] LAB90 Attending Clinician Unavailable Alesha Roy MD Attending Clinician + ARELIS KERN Attending Clinician Unavailab FARTUN Bernal Attending Clinician Unavailable TAVARES MG JR Attending Clinician Leigh Pink NP Attending Clinician COSMO Attending Clinician Unavailable SHERIDAN MCMANUS Attending Clinician UnavailROBERTO Melgar Attending Clinician Unavailable Roberto Richards MD Attending Clinician + SHAN BUSCH Attending Clinician Unavailable RIDDHI MYLES Attending Clinician UnavailAN Garcia Attending Clinician Unavailable NARAYAN NARVAEZ Attending Clinician Unavailable Narayan Narvaez DO Attending Clinician + BRITTNI PADGETT S Attending Clinician Unavailable Brittni Elam S Attending Clinician [phone] JESÚS MONTERO Attending Clinician Unavailable Leeanne Wise NP Attending Clinician +[phone] Jesús Montero MD Attending Clinician + FELTON Attending Clinician Unavailable MELIDA LONGORIA Attending Clinician Unavailable Melida Longoria MD Attending Clinician + WIL MCQUEEN Attending Clinician Unavailable Wil Joseph Attending Clinician + IBDEE MAURER F Attending Clinician Unavaila ble Ibikunbailee CARDROOM ATTENDANT, Folusho F Attending Clinician +1- Doctor Unassigned, Candelero Arriba Attending Clinician U CEM Lance Attending Clinician Unavailable Cem Choi MD Attending Clinician [phone] Shelley Rosas RN Attending Clinician [phone] Bal Cuevas Attending Clinician + BAL HASSAN Attending Clinician Unavailable Tremaine Jon Attending Clinician [phone] EBTREMAINE PALOMINO Attending Clinician Unavailable LEEANNE WISE Attending Clinician Unavailable MORA POLLOCK Attending Clinician Unavailable Best Rodríguez Attending Clinician [phone] BEST TAYLOR Attending Clinician Unavailable Marbella Rizo RN Attending Clinician Unavailab Vuong, Abdias Attending Clinician +[phone] ABDIAS ROBERTSON Attending Clinician Unavailable Kamryn Sheppard RN Attending Clinician Unavail able Bushra Rios DO Attending Clinician [phone] BUSHRA RIOS Attending Clinician Unavailab SINCERE morocho [...] Unavailable Saleem EDWARD Admitting Clinician Unavailable SANDY GARCIA Admitting Clinician Unavailable OLIVIA GARCIA Admitting Clinician Unavailable ANNALISE WRIGHT Admitting Clinician Unavailable OLIVIA GARCIA Admitting Clinician Unavailable ROBERTO RICHARDS Admitting Clinician Unavailable SHAN BUSCH Admitting Clinician Unavailable RIDDHI MYLES Admitting Clinician UnaNARAYAN Suárez Admitting Clinician Unavailable JESÚS MONTERO Admitting Clinician Unavailable Jesús Montero MD Admitting Clinician [phone] FELTON Admitting Clinician Unavailable MELIDA LONGORIA Admitting Clinician Unavailable WIL MCQUEEN Admitting Clinician Unavailable DEE WANG Admitting Clinician Unavaila CEM Gomez Admitting Clinician Unavailable TREMAINE BECERRA Admitting Clinician Unavailable LEEANNE WISE Admitting Clinician Unavailable Saleem EDWARD Admitting Clinician Unavailable BEST TAYLOR Admitting Clinician Unavailable ABDIAS ROBERTSON Admitting Clinician Unavailable Payers Payer Name Policy Type Policy Number Effective Date Expirati on Date Source AEADAMA TAYLOR SILVER 5 O LOG SCALER 94 ON 9 [id number] 2023 00:00:00 RAMSES Caro/ KELLEE MCADAMS [id number] 2023 00:00:00 [facility] BCBS BLUE [facility] [id number] 2020 00:00:00 Problems Condition Name Condition Details Condition Category Status Onset Date Resolution Date Last Treatment Date Treating Clinician Comments Source Generalize d abdominal pain Generalize d abdominal pain Disease Active 2023-07 0 00:00: 00 [facility] Coronary artery disease Coronary artery disease Disease Active 12-12 00:00: 00 Kellee pinedo Status post arterial stent Status post arterial stent Disease Active 12-12 00:00: 00 Kellee Parrisha khris MICAH (generaliz ed anxiety disorder) MICAH [...] 2020-07 0- 00:00: 00 [facility] Cigarette smoker Cigarette smoker Disease Active 2020-07 0- 00:00: 00 [facility] Family history of early CAD Family history of early CAD Disease Active 2020-07 0- 00:00: 00 [facility] Primary hypertensi on Primary hypertensi on Disease Active 2020-07 0- 00:00: 00 [facility] Elevated brain [...] 2020-07 0- 00:00: 00 [facility] Abdominal pain Problem [facility] Acute coronary syndrome without high troponin Problem [facility] Adrenal mass Problem [facility] Adrenal nodule Problem [facility] Encounter for counseling regarding advance directives [facility] Allergic rhinitis Problem [facility] Angina pectoris Problem [facility] Anxiety and depression Problem [facility] Chest pain Problem [facility] Gastroente ritis Problem [facility] Malaise Problem [facility] Otitis externa of left ear Problem [facility] Cyst of ovary Problem [facility] Post traumatic stress disorder (PTSD) Problem [facility] Tobacco abuse Problem [facility] Urinary tract infection [facility] No known active problems No known active problems Disease [facility] Allergies, Adverse Reactions, Alerts Allergy Name Allergy Type Status Severity Reaction(s) Onset Date Inactive Date Treating Clinician Comments Source NO KNOWN ALLERGIE S Drug Class Active [facility] Social History Social Habit Start Date Stop Date Quantity Comments Source History of tobacco use [facility] Gender identity [facility] Sexual orientation Saleem Buckley - External ASSERTION Not Kellee Buckley - External Alcoholic beverage intake 2024-08-05 00:00:00 2024-08-05 00:00:00 Current drinker of alcohol (finding) Kellee [...] 00:00:00 2023-10-28 00:00:00 Smokeless tobacco non-user Kellee Ariasnicolbeck Davies Sex 2023-07-17 22:17:29 2023-07-17 22:17:29 Female (finding) Kellee Ariasazra - External Tobacco Comment 2023-02-15 00:00:00 2023-02-15 00:00:00 In the process of quitting. Now smokes 5 cigarettes/ day from 2 packs per day [facility] Exposure to SARS-CoV-2 (event) 2021-12-30 00:00:00 2022-01-09 16:34:00 Unable to assess [facility] Education 2021-04-07 00:00:00 2021-04-07 00:00:00 13 [facility] Sex assigned at 1980 00:00:00 1980 00:00:00 Kellee Davies Smoking Status Start Date Stop Date Source Smokes tobacco daily 2023-10-28 00:00:00 Kellee Davies Unknown if ever smoked [facility] Medications Ordered Medication Name Filled Medication Name Start Date Stop Date Current Medication? Ordering Clinician Indication Dosage Frequency Signature (SIG) Comments Components Source methylPREDN ISolone 4 MG oral Tablet Therapy Pack 08-05 00:00: 00 Yes [id number] 1{bebeto} Take 1 bebeto by mouth See Admin Instructio ns Use as directed. Kellee pinedo Albuterol HFA 108 (90 Base) MCG/ACT IN AERS 08-05 00:00: 00 Yes [id number] 2{puff} Q.25D Inhale 2 puffs into the lungs every 6 hours as needed for wheezing or shortness of breath. Kellee pinedo Guaifenesin (Mucinex) 600 MG oral Tablet 12 Hour Sustained Release 08-05 00:00: 00 Yes [id number] 1200mg Q.5D Take 2 tablets (1,200 mg total) by mouth 2 times daily. Kellee pinedo Belsomra 20 MG oral Tablet 08-04 00:00: 00 Yes [id number] 1{tbl} QD TAKE 1 TABLET BY MOUTH EVERY DAY AT NIGHT Kellee pinedo Aspirin Low Dose 81 MG oral Tablet Delayed Response 08-04 00:00: 00 Yes [id number] 81mg QD TAKE 1 TABLET BY MOUTH EVERY DAY Kellee pinedo Pantoprazol e Sodium 40 MG oral Tablet Delayed Response 08-04 00:00: 00 Yes 40mg QD Take 1 tablet (40 mg total) by mouth daily. Kellee pinedo methylpredn isolone sod succ (SOLU-MEDRO L) injection 125 mg 07-19 08:00: 00 07-19 07:05 :00 No 125mg 125 mg, Slow IV Push, ONCE, 1 dose, On 07/19/24 at 0200, Routine [facility] ipratropium -albuteroL (DUONEB) 0.5 mg-3 mg(2.5 mg base)/3 mL nebulizer solution 3 mL 07-19 08:00: 00 07-19 07:04 :00 No 3mL 3 mL, Inhalation , ONCE, 1 dose, On 07/19/24 at 0200, Routine [facility] azithromyci n (ZITHROMAX) tablet 500 mg 07-19 07:00: 00 07-19 07:05 :00 No 500mg 500 mg, Oral, ONCE, 1 dose, On 07/19/24 at 0100, ROSELYN, Reason for Anti-Infec tive: Documented Infection, Documented Infection Site: Respirator y, Duration of Therapy: Once (ED) [facility] iopamidol (ISOVUE 370-500 mL) injection 75 mL 07-19 06:45: 00 07-19 06:45 :00 No [id number] 75mL 75 mL, Intravenou s, ONCE, 1 dose, On 07/19/24 at 0045, Routine [facility] nitroglycer in (NITROL) 2 % ointment 0.5 Inch 07-19 06:00: 00 07-19 05:11 :00 No .5[in_u s] 0.5 Inch, Transderma l (Apply To Skin), ONCE, 1 dose, On 07/19/24 at 0000, [facility] ketorolac (TORADOL) injection 15 mg 07-19 06:00: 00 07-19 05:09 :00 No 15mg 15 mg, Slow IV Push, ONCE, 1 dose, On 07/19/24 at 0000, [facility] predniSONE 20 mg tablet 07-19 00:00: 00 Yes [id number] 1 PO BID x 4 days [facility] Azithromyci n 250 MG oral Tablet 07-19 00:00: 00 Yes 250mg Take 1 tablet (250 mg total) by mouth See Admin Instructio ns. Kellee pinedo Sertraline HCl 50 MG oral Tablet 07-10 00:00: 00 Yes [id number] TAKE 1 TABLET BY MOUTH DAILY TAKE IN ADDITION TO 100 MG TABLET FOR A TOTAL DOSE OF 150 MG DAILY. Kellee pinedo Sertraline HCl 100 MG oral Tablet 07-10 00:00: 00 Yes [id number] TAKE 1 TABLET BY MOUTH EVERY MORNING TAKE IN ADDITION TO 50 MG TABLET FOR A TOTAL DOSE OF 150 MG DAILY. Kellee pinedo iopamidol (ISOVUE 370-500 mL) injection 100 mL 2023-07 06:45: 00 07-04 06:45 :00 No [id number] 100mL 100 mL, Intravenou s, ONCE, 1 dose, On 07/04/24 at 0045, Routine [facility] morpHINE (4 mg/mL) injection 4 mg 2023-07 06:30: 00 07-04 06:29 :00 No 4mg 4 mg, Slow IV Push, ONCE, 1 dose, On 07/04/24 at 0030, [facility] proMETHazin e (PHENERGAN) 12.5 mg in NS 50 mL IV piggyback (CNR) 2023-07 05:15: 00 07-04 05:30 :00 No 12.5mg 12.5 mg, IV Piggyback, at 200 mL/hr Administer over 15 Minutes, ONCE, 1 dose, On Sat07/03/24 at 2315, ROSELYN [facility] morpHINE (4 mg/mL) injection 4 mg 2023-07 03:30: 00 07-04 03:49 :00 No 4mg 4 mg, Slow IV Push, ONCE, 1 dose, On Sat07/03/24 at 2130, STAT [facility] ondansetron (ZOFRAN (PF)) injection 4 mg 2023-07 03:30: 00 07-04 03:50 :00 No 4mg 4 mg, Slow IV Push, ONCE, 1 dose, On Sat07/03/24 at 2130, Administer over 2-5 Minutes, 2 mL [facility] NaCl 0.9% (NS) IV infusion 1,000 mL 2023-07 03:18: 00 07-04 04:56 :00 No 1000mL at 999 mL/hr, Intravenou s, ONCE, 1 dose, On Sat07/03/24 at 2130, ROSELYN [facility] sodium chloride (NS) injection 5 mL 2023-07 02:16: 03 Yes 5mL 5 mL, Intravenou s, PRN, Starting on Sat07/03/24 at 2016, Until Discontinu ed, Routine, IV line flushing [facility] benzonatate 100 mg capsule 2023-07 00:00: 00 Yes [id number] 100mg Take 1 capsule by mouth 3 (three) times daily as needed for Cough. [facility] proMETHazin e 25 mg tablet 2023-07 00:00: 00 Yes [id number] 25mg Take 1 tablet by mouth every 6 (six) hours as needed for Nausea and Vomiting (N/V). [facility] dicyclomine 10 mg capsule 2023-07 00:00: 00 Yes [id number] 10mg Take 1 capsule by mouth 3 (three) times daily as needed for Abdominal pain. [facility] Gabapentin 300 MG oral Capsule 2023-07 00:00: 00 Yes 1 cap po 30-60 min prior to MRI. Kellee ybold - Externa l cephALEXin (KEFLEX) capsule 500 mg 2023-07 08:45: 00 06-21 08:53 :00 No 500mg 500 mg, Oral, ONCE, 1 dose, On 06/21/24 at 0245, ROSELYN, Reason for Anti-Infec tive: Documented Infection, Documented Infection Site: Skin / Soft Tissue, Duration of Therapy: Once (ED) [facility] doxycycline hyclate (Vibramycin ) capsule 100 mg 2023-07 08:45: 00 06-21 08:53 :00 No 100mg 100 mg, Oral, ONCE, 1 dose, On 06/21/24 at 0245, ROSELYN, Reason for Anti-Infec tive: Documented Infection, Documented Infection Site: Skin / Soft Tissue, Duration of Therapy: Once (ED) [facility] doxycycline hyclate 100 mg capsule 2023-07 00:00: 00 06-29 05:59 :00 Yes [id number] 100mg Take 1 capsule by mouth in the morning and 1 capsule in the evening. Do all this for 7 days. [facility] cephALEXin 500 mg capsule 2023-07 00:00: 00 06-29 05:59 :00 Yes [id number] 500mg Take 1 capsule by mouth 4 (four) times daily for 7 days. [facility] iopamidol (ISOVUE 370-500 mL) injection 100 mL 2023-07 06:30: 00 06-15 06:30 :00 Yes [id number] 100mL 100 mL, Intravenou s, ONCE, 1 dose, On Sat06/15/24 at 0030, Routine [facility] morpHINE (4 mg/mL) injection 4 mg 2023-07 06:00: 00 06-15 05:57 :00 No 4mg 4 mg, Slow IV Push, ONCE, 1 dose, On Sat06/15/24 at 0000, STAT [facility] proMETHazin e (PHENERGAN) 12.5 mg in NS 50 mL IV piggyback (CNR) 2023-07 05:15: 00 06-15 05:56 :00 No 12.5mg 12.5 mg, IV Piggyback, at 200 mL/hr Administer over 15 Minutes, ONCE, 1 dose, On 06/14/24 at 2315, ROSELYN [facility] NaCl 0.9% (NS) IV infusion 1,000 mL 2023-07 04:30: 00 06-15 05:28 :00 No 1000mL at 999 mL/hr, Intravenou s, ONCE, 1 dose, On 06/14/24 at 2230, Routine [facility] fentanyl PF (SUBLIMAZE (PF)) injection 50 mcg 2023-07 04:00: 00 06-15 04:23 :00 No 50ug 50 mcg, Slow IV Push, ONCE, 1 dose, On Sat06/14/24 at 2200, Routine [facility] famotidine (PEPCID (PF)) injection 20 mg 2023-07 03:30: 00 06-15 04:18 :00 No 20mg 20 mg, Slow IV Push, ONCE, 1 dose, [facility]06/14/24 [facility] 2130[facility] ([facility] 4 mg 2023-07 03:30: 00 06-15 04:20 :00 No 4mg 4 mg, Slow IV Push, ONCE, 1 dose, On Sat06/14/24 at 2130, Administer over 2-5 Minutes, 2 mL [facility] proMETHazin e 25 mg tablet 2023-07 00:00: 00 Yes [id number] 25mg Take 1 tablet by mouth every 6 (six) hours as needed for Nausea and Vomiting (N/V). [facility] morpHINE (4 mg/mL) injection 4 mg 2023-07 08:15: 00 06-07 08:11 :00 No 4mg 4 mg, Slow IV Push, ONCE, 1 dose, On Sat06/07/24 at 0215, STAT [facility] ondansetron (ZOFRAN (PF)) injection 4 mg 2023-07 05:15: 00 06-07 05:23 :00 No 4mg 4 mg, Slow IV Push, ONCE, 1 dose, On 06/06/24 at 2315, Administer over 2-5 Minutes, 2 mL [facility] morpHINE (4 mg/mL) injection 4 mg 2023-07 05:15: 00 06-07 05:21 :00 No 4mg 4 mg, Slow IV Push, ONCE, 1 dose, On 06/06/24 at 2315, STAT [facility] nitroglycer in (NITROSTAT) sublingual tablet 0.4 mg 2023-07 05:08: 35 Yes .4mg 0.4 mg, Sublingual , Q5MIN PRN, 3 doses, Starting on 06/06/24 at 2308, Until Discontinu ed, ROSELYN, Chest pain [facility] hydrOXYzine Pamoate 50 MG oral Capsule 2023-07 13:02: 35 Yes [id number] 50mg Q.5D Take 1 capsule (50 mg total) by mouth 2 times daily as needed for anxiety. Kellee pinedo Vitamin D, Ergocalcife rol, 1.25 MG (10601 UT) oral Capsule 2023-07 00:00: 00 Yes [id number] 13980C Q1W Take 1 capsule (50,000 units total) by mouth once a week. Kellee pinedo ondansetron (ZOFRAN-ODT ) disintegrat ing tablet 4 mg 2023-07 20:15: 00 05-19 19:27 :00 No 4mg 4 mg, Oral, ONCE, 1 dose, On Sat05/19/24 at 1415, Routine [facility] HYDROcodone -acetaminop hen (NORCO 5) tablet 1 tablet 2023-07 18:00: 00 05-19 19:27 :00 No 1{tbl} 1 tablet, Oral, ONCE, 1 dose, On Sat05/19/24 at 1200, ROSELYN [facility] ondansetron 4 mg disintegrat ing tablet 2023-07 00:00: 00 Yes [id number] 4mg Take 1 tablet by mouth every 8 (eight) hours as needed for Nausea and Vomiting (N/V). [facility] hydrOXYzine Pamoate 50 MG oral Capsule 2023-07 10:26: 29 Yes [id number] 50mg Q.5D Take 1 capsule (50 mg [...] 1 dose, On 05/17/24 at 2145, STAT [facility] ondansetron (ZOFRAN (PF)) injection 4 mg 2023-07 01:00: 00 05-18 01:21 :00 No 4mg 4 mg, Slow IV Push, ONCE, 1 dose, On 05/17/24 at 1900, [facility] fentanyl PF (SUBLIMAZE (PF)) injection 50 mcg 2023-07 01:00: 00 05-18 01:21 :00 No 50ug 50 mcg, Slow IV Push, ONCE, 1 dose, On 05/17/24 at 1900, STAT [facility] Suvorexant (Belsomra) 20 MG oral Tablet 2023-07 00:00: 00 Yes [id number] 1{tbl} QD Take 1 tablet by mouth nightly. Kellee pinedo Methocarbam ol 750 MG oral Tablet 2023-07 00:00: 00 Yes [id number] 750mg Q.25D Take 1 tablet (750 mg total) by mouth 4 times daily. Kellee pinedo Acetaminoph en-Codeine 300-30 MG oral Tablet 2023-07 00:00: 00 Yes [id number] Kellee pinedo Lorazepam (ATIVAN) 0.5 MG oral Tablet tablet 2023-07 00:00: 00 Yes [id number] .5mg Q.5D Take 1 tablet (0.5 mg total) by mouth 2 times daily as needed for anxiety. Kellee pinedo Sertraline HCl 50 MG oral Tablet 2023-07 00:00: 00 Yes [id number] 50mg QD Take 1 tablet (50 mg total) by mouth daily Take in addition to 100 mg tablet for a total dose of 150 mg daily. Kellee pinedo Sertraline HCl 100 MG oral Tablet 2023-07 00:00: 00 Yes [id number] 100mg Take 1 tablet (100 mg total) by mouth every morning Take in addition to 50 mg tablet for a total dose of 150 mg daily. Kellee pinedo Isosorbide Mononitrate CR 30 MG oral TABLET SR 24 HR 2023-07 00:00: 00 Yes [id number] TAKE THREE TABLETS BY MOUTH ONCE DAILY (90MG DAILY) Kellee pinedo ondansetron (ZOFRAN (PF)) injection 4 mg 2023-07 01:30: 00 05-08 00:31 :00 No 4mg 4 mg, Slow IV Push, ONCE, 1 dose, On [place] 05/07/24 at 2030, ROSELYN [facility] morpHINE (4 mg/mL) injection 4 mg 2023-07 01:30: 00 05-08 01:20 :00 No 4mg 4 mg, Slow IV Push, ONCE, 1 dose, On [place] 05/07/24 at 2030, STAT [facility] ketorolac (TORADOL) injection 15 mg 2023-07 01:30: 00 05-08 00:30 :00 No 15mg 15 mg, Slow IV Push, ONCE, 1 dose, On [place] 05/07/24 at 2030, ROSELYN [facility] phenazopyri dine 200 mg tablet 2023-07 00:00: 00 Yes [id number] 200mg Take 1 tablet by mouth in the morning and 1 tablet at noon and 1 tablet in the evening. [facility] Rosuvastati n Calcium 20 MG oral Tablet 2023-07 0 00:00: 00 Yes 20mg QD Take 1 tablet (20 mg total) by mouth daily. Kellee pinedo Metoprolol Succinate 25 MG oral TABLET SR 24 HR 2023-07 0 00:00: 00 Yes [id number] 25mg QD Take 1 tablet (25 mg total) by mouth daily. Kellee pinedo Dicyclomine HCl 20 MG oral Tablet 2023-07 0 00:00: 00 Yes TAKE 1 TABLET BY MOUTH FOUR TIMES A DAY NEEDED FOR PAIN Kellee pinedo Ondansetron (ZOFRAN) 4 MG oral TABLET DISPERSIBLE 2023-07 00:00: 00 Yes 4mg Q.[id number] 3D Take 1 tablet (4 mg total) by mouth 3 times daily. Kellee pinedo Belsomra 20 MG oral Tablet 2023-07 00:00: 00 05-18 00:00 :00 No [id number] 1{tbl} QD take 1 tablet by mouth every day at night Kellee pinedo Nitrofurant oin (Macrobid *) 100 Mg CAP Nitrofurant oin (Macrobid *) 100 Mg CAP 2023-07 18:32: 00 Yes 100 [facility] Ondansetron Hcl (Zofran *) 4 Mg Tablet Disint Ondansetron Hcl (Zofran *) 4 Mg Tablet Disint 2023-07 0 18:32: 00 Yes 1 [facility] cefTRIAXone (ROCEPHIN) 1,000 mg in NaCl 0.9% (NS) 100 mL MINI-BAG 2023-07 0 01:15: 00 04-09 01:24 :00 No 1000mg 1,000 mg, IV Piggyback, ONCE, 1 dose, On Sat04/08/24 at 2014, Administer over 30 Minutes, 100 mL, Reason for Anti-Infec tive: Documented Infection, Documented Infection Site: Urine, Duration of Therapy: Once (ED) [facility] fentanyl PF (SUBLIMAZE (PF)) injection 25 mcg 2023-07 00:15: 00 04-09 00:18 :00 No 25ug 25 mcg, Slow IV Push, ONCE, 1 dose, On Sat04/08/24 at 1915, STAT [facility] NaCl 0.9% (NS) [...] Routine, IV line flushing [facility] ciprofloxac in HCl 500 mg tablet 2023-07 00:00: 00 Yes [id number] 500mg Take 1 tablet by mouth in the morning and 1 tablet in the evening. [facility] Promethazin e HCl (PHENERGAN) 25 MG oral Tablet 07 00:00: 00 Yes 25mg Q.[id number] 3D Take 1 tablet (25 mg total) by mouth every 8 hours as needed for nausea. Kellee pinedo Clopidogrel Bisulfate (PLAVIX) 75 MG oral Tablet 02-09 00:00: 00 Yes [id number] 75mg QD take 1 tablet by mouth every day Kellee pinedo Aspirin Low Dose 81 MG oral Tablet Delayed Response 02-09 00:00: 00 Yes [id number] 81mg QD take 1 tablet by mouth every day Kellee pinedo Methylpredn isolone Acetate (Depo-Medro l) 40 mg/ml - Physician Administere d ([id number]) 02-05 13:21: 25 No [id number] 40mg 40 mg, Physician Administer ed, ONCE, 1 dose, On [place] 02/06/24 at 1145 Kellee pinedo hydrOXYzine Pamoate 50 MG oral Capsule 02-05 11:06: 49 Yes [id number] 50mg Q.5D Take 1 capsule (50 mg total) by mouth 2 times daily as needed for anxiety. Kellee pinedo Isosorbide Mononitrate CR 60 MG oral TABLET SR 24 HR 02-04 00:00: 00 Yes Kellee pinedo Lorazepam (ATIVAN) 0.5 MG oral Tablet tablet 01-09 00:00: 00 Yes [id number] .5mg Q.5D take 1 tablet by mouth 2 times daily as needed for anxiety Kellee pinedo Aspirin (Aspirin Low Dose) 81 MG oral Tablet Delayed Response 01-05 00:00: 00 Yes [id number] 81mg QD Take 1 tablet (81 mg total) by mouth daily. Kellee pinedo Atorvastati n Calcium 40 MG oral Tablet 01-05 00:00: 00 Yes [id number] 40mg QD Take 1 tablet (40 mg total) by mouth daily. Kellee pinedo Suvorexant (Belsomra) 20 MG oral Tablet 01-05 00:00: 00 Yes [id number] 1{tbl} QD Take 1 tablet by mouth nightly. Kellee pinedo Clopidogrel Bisulfate (PLAVIX) 75 MG oral Tablet 01-05 00:00: 00 Yes [id number] 75mg QD Take 1 tablet (75 mg [...] MG oral Capsule 12-12 09:19: 23 Yes [id number] 50mg Q.5D Take 1 capsule (50 mg total) by mouth 2 times daily as needed for anxiety. Kellee pinedo Lorazepam (ATIVAN) 0.5 MG oral Tablet tablet 12-12 00:00: 00 Yes [id number] .5mg Q.5D Take 1 tablet (0.5 mg total) by mouth 2 times daily as needed for anxiety. Kellee pinedo Aspirin Low Dose 81 MG oral Tablet Delayed Response 12-05 00:00: 00 Yes [id number] 81mg Take 1 tablet (81 mg total) by mouth daily. Kellee pinedo Atorvastati n Calcium 40 MG oral Tablet 12-05 00:00: 00 Yes [id number] 40mg Take 1 tablet (40 mg total) by mouth daily. Kellee pinedo Clopidogrel Bisulfate (PLAVIX) 75 MG oral Tablet 12-05 00:00: 00 Yes [id number] 75mg Take 1 tablet (75 mg total) by mouth daily. Kellee pinedo Mometasone Furo-Formot camelia Fum (Dulera) 200-5 MCG/ACT inhalation Aerosol 12-05 00:00: 00 05-18 00:00 :00 No TWICE DAILY Kellee pinedo Vitamin D, Ergocalcife rol, 1.25 MG (94479 UT) oral Capsule 12-04 00:00: 00 Yes [id number] 59808D Q1W Take 1 capsule (50,000 units total) by mouth once a week. Kellee pinedo Ferrous Sulfate 325 (65 Fe) MG oral Tablet 12-04 00:00: 00 Yes [id number] 325mg QD Take 1 tablet (325 mg total) by mouth daily (with breakfast) . Kellee pinedo Clopidogrel Bisulfate (PLAVIX) 75 MG oral Tablet 12-04 00:00: 00 Yes [id number] 75mg QD Take 1 tablet (75 mg total) by mouth. Kellee pinedo Mirtazapine 45 MG oral Tablet 12-02 10:49: 07 12-02 00:00 :00 No [id number] 45mg Take 1 tablet (45 mg total) by mouth nightly. Kellee pinedo hydrOXYzine Pamoate 50 MG oral Capsule 12-02 10:49: 04 Yes [id number] 50mg Q.5D Take 1 capsule (50 mg total) by mouth 2 times daily as needed for anxiety. Kellee pinedo Ascorbic Acid 500 MG oral Tablet 12-02 10:48: 55 12-02 00:00 :00 No 50mg Take 50 mg by mouth. Kellee pinedo Suvorexant (Belsomra) 20 MG oral Tablet 12-02 00:00: 00 Yes [id number] 1{tbl} Take 1 tablet by mouth nightly. Kellee pinedo Lorazepam 1 MG oral Tablet 12-02 00:00: 00 12-12 00:00 :00 No [id number] 1mg Q.5D Take 1 tablet (1 mg total) by mouth 2 times daily as needed for anxiety. Kellee pinedo Doxepin HCl 3 MG oral Tablet 11-27 00:00: 00 05-18 00:00 :00 No [id number] 1{tbl} QD TAKE 1 TABLET BY MOUTH EVERY DAY AT NIGHT Kellee pinedo Aripiprazol e 5 MG oral Tablet 11-27 00:00: 00 05-18 00:00 :00 No [id number] 5mg QD TAKE 1 TABLET (5 MG TOTAL) BY MOUTH DAILY. Kellee pinedo Mirtazapine 45 MG oral Tablet 10-28 13:20: 59 Yes [id number] 45mg Take 1 tablet (45 mg total) by mouth nightly. Kellee pinedo Ascorbic Acid 500 MG oral Tablet 10-28 13:20: 47 Yes 50mg Take 50 mg by mouth. Kellee pinedo hydrOXYzine Pamoate 50 MG oral Capsule 10-28 13:20: 47 10-28 00:00 :00 No [id number] 50mg Q.5D Take 1 capsule (50 mg total) by mouth every 4 to 6 hours as needed. Kellee pinedo Sertraline HCl 150 MG oral Capsule 10-28 13:20: 03 10-28 00:00 :00 No 150mg Take 150 mg by mouth daily. Kellee pinedo Doxepin HCl 3 MG oral Tablet 10-28 00:00: 00 Yes [id number] 1{tbl} Take 1 tablet by mouth nightly. Kellee pinedo Aripiprazol e 5 MG oral Tablet 10-28 00:00: 00 Yes [id number] 5mg Take 1 tablet (5 mg total) by mouth daily. Kellee pinedo Suvorexant 10 MG oral Tablet 10-28 00:00: 00 12-02 00:00 :00 No [id number] 1{tbl} Take 1 tablet by mouth nightly. Kellee pinedo Sertraline HCl 50 MG oral Tablet 10-26 00:00: 00 Yes [id number] Kellee pinedo HYDROcodone -acetaminop hen (NORCO) 10-325 mg tablet 1 tablet 10-10 06:15: 00 10-10 05:25 :00 No 1{tbl} 1 tablet, Oral, ONCE NOW, 1 dose, On Sat10/11/23 at 0115, [facility] iopamidol (ISOVUE 370-500 mL) injection 100 mL 10-10 05:00: 00 10-10 05:00 :00 No [id number] 100mL 100 mL, Intravenou s, ONCE, 1 dose, On Sat10/11/23 at 0000, Routine [facility] ketorolac (TORADOL) injection 30 mg 10-10 04:30: 00 10-10 03:29 :00 No 30mg 30 mg, Slow IV Push, ONCE, 1 dose, On [place] 10/10/23 at 2330, Routine [facility] NaCl 0.9% (NS) IV infusion 1,000 mL 10-10 04:15: 00 10-10 05:18 :00 No 1000mL at 999 mL/hr, Intravenou s, ONCE, 1 dose, On [place] 10/10/23 at 2315, Routine [facility] ondansetron (ZOFRAN (PF)) injection 4 mg 10-10 04:00: 00 10-10 03:54 :00 No 4mg 4 mg, Slow IV Push, ONCE, 1 dose, On [place] 10/10/23 at 2300, ROSELYN [facility] morpHINE (4 mg/mL) injection 4 mg 10-10 04:00: 00 10-10 03:54 :00 No 4mg 4 mg, Slow IV Push, ONCE, 1 dose, On [place] 10/10/23 at 2300, STAT [facility] traMADoL (ULTRAM) 50 mg tablet 10-10 00:00: 00 Yes [id number] 50mg Take 1 tablet by mouth every 6 (six) hours as needed for Pain (scale 7-10). Indication s: acute pain [facility] ondansetron (ZOFRAN) 4 mg tablet 10-10 00:00: 00 Yes [id number] 4mg Take 1 tablet by mouth every 8 (eight) hours as needed for Nausea and Vomiting (N/V). [facility] ketorolac 10 mg tablet 10-10 00:00: 00 Yes [id number] 10mg Take 1 tablet by mouth every 6 (six) hours as needed for Pain (scale 7-10). [facility] phenazopyri dine 200 mg tablet 10-10 00:00: 00 Yes [id number] 200mg Take 1 tablet by mouth in the morning and 1 tablet at noon and 1 tablet in the evening. [facility] Sertraline HCl 100 MG oral Tablet 10-09 00:00: 00 Yes [id number] 100mg Take 1 tablet (100 mg total) by mouth every morning. Kellee Buckley - Shobha pinedo acetaminoph en (TYLENOL) tablet 975 mg 2022-07 04:15: 00 07-02 03:11 :00 No 975mg 975 mg, Oral, ONCE, 1 dose, On Sat07/01/23 at 2215, [facility] dicyclomine (BENTYL) tablet 20 mg 2022-07 03:15: 00 07-02 03:11 :00 No 20mg 20 mg, Oral, ONCE, 1 dose, On Sat07/01/23 at 2115, [facility] ketorolac (TORADOL) injection 30 mg 2022-07 03:15: 00 07-02 02:32 :00 No 30mg 30 mg, Slow IV Push, ONCE, 1 dose, On Sat07/01/23 at 2115, Routine [facility] ondansetron (ZOFRAN (PF)) injection 4 mg 2022-07 03:00: 00 07-02 02:03 :00 No 4mg 4 mg, Slow IV Push, ONCE, 1 dose, On Sat07/01/23 at 2100, [facility] NaCl 0.9% (NS) bolus infusion 1,000 mL 2022-07 03:00: 00 07-02 04:10 :00 No 1000mL at 999 mL/hr, 1,000 mL, IV Infusion, ONCE, 1 dose, On Sat07/01/23 at 2100, STAT [facility] dicyclomine 20 mg tablet 2022-07 00:00: 00 Yes [id number] 20mg Take 1 tablet by mouth 4 (four) times daily. [facility] ondansetron 4 mg disintegrat ing tablet 2022-07 00:00: 00 Yes [id number] 4mg Take 1 tablet by mouth every 4 (four) hours as needed for Nausea and Vomiting (N/V). [facility] Alprazolam (Alprazolam *) 1 Mg TAB Alprazolam (Alprazolam *) 1 Mg TAB 2022-07 12:08: 00 06-14 00:00 :00 No 1 [facility] Trazodone Hcl (Desyrel 100 Mg*) 100 Mg TAB Trazodone Hcl (Desyrel 100 Mg*) 100 Mg TAB 2022-07 12:07: 00 06-06 12:08 :00 No 1 [facility] Aspirin (Aspirin Ec) 81 Mg Tablet Aspirin (Aspirin Ec) [address] 2022-07 11:55: 00 07-07 00:00 :00 No 81 [facility] Alprazolam (Xanax 2 Mg*) 2 Mg TAB Alprazolam (Xanax 2 Mg*) 2 Mg TAB 2022-07 11:09: 40 06-06 12:08 :00 No 2 [facility] Trazodone Hcl (Desyrel 300 Mg*) 300 Mg TAB Trazodone Hcl (Desyrel 300 Mg*) 300 Mg TAB 2022-07 11:09: 39 05-13 15:45 :00 No 300 [facility] Alprazolam 1 MG oral Tablet 2022-07 00:00: 00 12-12 00:00 :00 No [id number] 2mg Take 2 tablets (2 mg total) by mouth 2 times daily. Kellee pinedo Pantoprazol e * (Protonix Ec *) 20 Mg Tablet Pantoprazol e * (Protonix Ec *) [address] 2022-07 15:44: 00 06-05 00:28 :00 No 20 [facility] Sucralfate (Carafate *) 1 Gm TAB Sucralfate (Carafate *) 1 Gm TAB 2022-07 15:44: 00 06-05 00:28 :00 No 1 [facility] Ciprofloxac in Hcl (Cipro *) 500 Mg TAB Ciprofloxac in Hcl (Cipro *) 500 Mg TAB 2022-07 15:44: 00 05-16 00:00 :00 No 500 [facility] Pantoprazol e Sodium 20 MG oral [...] (NORCO) 10-325 mg tablet 1 tablet 2022-07 0 02:00: 00 05-01 01:04 :00 No 1{tbl} 1 tablet, Oral, ONCE, 1 dose, On Sat04/30/23 at 2100, Routine [facility] iopamidol (ISOVUE 370-500 mL) injection 100 mL 2022-07 00:45: 00 05-01 00:45 :00 No [id number] 100mL 100 mL, Intravenou s, ONCE, 1 [...] ONCE, 1 dose, [facility]04[facility]30/23 [facility] 1845[facility] (BENADRYL[facility] 25 mg 2022-07 23:00: 00 04-30 23:09 :00 No 25mg 25 mg, Slow IV Push, ONCE, 1 dose, On Sat04/30/23 at 1800, STAT [facility] dicyclomine 20 mg tablet 2022-07 00:00: 00 07-01 00:00 :00 No [id number] 20mg Take 1 tablet by mouth 4 [...] ONCE, 1 dose, On Sat04/08/23 at 2215[facility] (BENTYL) tablet 20 mg 2022-07 0 03:15: 00 04-09 02:16 :00 No 20mg 20 mg, Oral, ONCE, 1 dose, On 04/08/23 at 2215, Routine [facility] ondansetron [...] 2022-07 00:00: 00 07-01 00:00 :00 No [id number] 4mg Take 1 tablet by mouth every 8 (eight) hours as needed for Nausea and Vomiting (N/V). [facility] dicyclomine 20 mg tablet 2022-07 00:00: 00 04-30 00:00 :00 No [id number] 20mg Take 1 tablet by mouth 4 (four) times daily. [facility] acetaminoph en (TYLENOL) tablet 1,000 mg 03-10 04:30: 00 03-10 04:29 :00 No 1000mg 1,000 mg, Oral, ONCE, 1 dose, On 03/09/23 at 2330, ROSELYN [facility] iopamidol (ISOVUE 370-500 mL) injection 85 mL 03-10 04:30: 00 03-10 04:30 :00 No [id number] 85mL 85 mL, Intravenou s, ONCE, 1 [...] 17 gram powder 03-09 00:00: 00 Yes [id number] 1{packe t} Take 1 Packet by mouth once daily as needed for Constipati on. [facility] Simethicone 125 mg 03-09 00:00: 00 Yes [id number] 125mg Take 1 capsule by mouth after meals and at bedtime as needed for Gas. [facility] iopamidol (ISOVUE 370-500 mL) injection 100 mL 03-02 06:15: 00 03-02 06:15 :00 No [id number] 100mL 100 mL, Intravenou s, ONCE, 1 dose, On 03/02/23 at 0115, Routine [facility] NaCl 0.9% (NS) IV infusion 1,000 mL 03-02 05:15: 00 Yes 1000mL at 999 mL/hr, Intravenou s, CONTINUOUS , Starting on 03/02/23 at 0015, Until Discontinu ed, Routine [facility] ketorolac (TORADOL) injection 30 mg 03-02 05:15: 00 03-02 04:20 :00 No 30mg 30 mg, Slow IV Push, ONCE, 1 dose, On 03/02/23 at 0015, Routine [facility] ondansetron (ZOFRAN (PF)) injection 4 mg 03-02 05:00: 00 03-02 05:24 :00 No 4mg 4 mg, Slow IV Push, ONCE, 1 dose, [facility] 03/02/23 at 0000[facility] (4 mg/mL) injection 4 mg 03-02 05:00: 00 03-02 05:24 :00 No 4mg 4 mg, Slow IV Push, ONCE, 1 dose, On 03/02/23 at 0000, STAT [facility] ondansetron (ZOFRAN (PF)) injection 4 mg 03-02 04:15: 00 03-02 04:21 :00 No 4mg 4 mg, Slow IV Push, ONCE, 1 dose, On Sat03/01/23 at 2315, [facility] Ondansetron HCl 4 MG oral Tablet 03-02 00:00: 00 05-18 00:00 :00 No [id number] 4mg [id number] 3D Take 1 tablet (4 mg total) by mouth every 8 hours as needed. Kellee pinedo dicyclomine 20 mg tablet 03-02 00:00: 00 04-30 00:00 :00 No [id number] 20mg Take 1 tablet by mouth every [...] ONCE, 1 dose, On Sat02/17/23 at 2330, [facility] proMETHazin e 25 mg tablet 02-18 00:00: 00 Yes [id number] 25mg Take 1 tablet by mouth every [...] 150 mg, Oral, DAILY, First dose on Sat02/16/23 at 0900, Until Discontinu ed [facility] enoxaparin (LOVENOX) injection 40 mg 02-16 14:00: 00 Yes 40mg 40 mg, Subcutaneo us, DAILY, First dose on Sat02/16/23 at 0900, Until Discontinu ed, Routine [facility] methocarbam oL (ROBAXIN) tablet 500 mg 02-16 06:04: 59 Yes 500mg 500 mg, Oral, Q6HPRN, Starting on 02/16/23 at 0104, Until Discontinu ed, Routine, Muscle Spasms [facility] ALPRAZolam (XANAX) tablet 2 mg 02-16 06:03: 54 Yes 2mg 2 mg, Oral, TIDPRN, Starting on 02/16/23 at 0103, Until Discontinu ed, Anxiety [facility] lactated ringers IV infusion 1,000 mL 02-16 03:15: 00 02-16 23:14 :00 No 1000mL at 100 mL/hr, 1,000 mL, IV Infusion, CONTINUOUS , Starting on Sat02/15/23 at 2215, Until 02/16/23 at 1814, Routine [facility] morpHINE (2 mg/mL) injection 2 mg 02-16 03:07: 02 02-17 01:08 :14 No 2mg 2 mg, Slow IV Push, Q4HPRN, Starting on Sat02/15/23 at 2207, Until 02/16/23 at 2008, Routine, Pain (scale 7-10) [facility] traMADoL (ULTRAM) tablet 50 mg 02-16 03:06: 59 02-18 03:05 :59 No 50mg 50 mg, Oral, Q8HPRN, Starting on Sat02/15/23 at 2206, Until Sat02/17/23 at 2205, Routine, Pain (scale 4-6) [facility] acetaminoph en (TYLENOL) tablet 1,000 mg [...] 02-16 00:30: 00 02-16 00:30 :00 No [id number] 80mL 80 mL, Intravenou s, ONCE, 1 dose, On Sat02/15/23 at 1930, Routine [facility] lactated ringers IV infusion 1,000 mL 02-16 00:00: 00 02-16 03:07 :30 No [id number] 1000mL at 500 mL/hr, 1,000 mL, IV Infusion, CONTINUOUS , Starting on Sat02/15/23 at 1900, Until Sat02/15/23 at 2207, ROSELYN [facility] FENTanyl PF (SUBLIMAZE (PF)) injection 75 mcg 02-15 23:45: 00 02-15 23:13 :00 No [id number] 75ug 75 mcg, Slow IV Push, ONCE, 1 dose, On Sat02/15/23 at 1845, Routine [facility] dicyclomine (BENTYL) injection 20 mg 02-15 22:15: 00 02-15 21:46 :00 No [id number] 20mg 20 mg, Intramuscu lar, ONCE NOW, 1 dose, On Sat02/15/23 at 1715, Routine [facility] LORazepam (ATIVAN) injection 1 mg 02-15 21:45: 00 02-15 21:46 :00 No [id number] 1mg 1 mg, Slow IV Push, ONCE, 1 dose, On Sat02/15/23 at 1645, STAT [facility] ondansetron (ZOFRAN (PF)) injection 4 mg 02-15 21:45: 00 02-15 21:46 :00 No [id number] 4mg 4 mg, Slow IV Push, ONCE, 1 dose, On Sat02/15/23 at 1645, ROSELYN [facility] HYDROcodone -acetaminop hen (NORCO) 10-325 mg tablet 1 tablet 02-15 20:15: 00 02-15 19:52 :00 No [id number] 1{tbl} 1 tablet, Oral, ONCE, 1 dose, [...] 02-15 19:30: 00 02-15 19:52 :00 No [id number] 20mg 20 mg, Oral, ONCE, 1 dose, On Sat02/15/23 at 1430, RO[facility]N [facility] ibuprofen (IBU) tablet 800 mg 02-15 19:30: 00 02-15 19:52 :00 No [id number] 800mg 800 mg, Oral, ONCE, 1 dose, On Sat02/15/23 at 1430, ROSE[facility]N [facility] losartan 50 mg tablet 02-15 13:44: 36 02-15 00:00 :00 No 50mg Take 1 tablet by mouth in the morning. [facility] Rolla-3-DHA -EPA-Fish Oil (FISH OIL) 1,000 mg (120 [...] 1 dose, On Sat12/14/21 at 0045, STAT [facility] cefTRIAXone [...] 1 dose, On [place] [facility]14[facility] 0045[facility] (ZOFRAN (PF)) [facility] 4 mg 12-14 04:45: 00 12-14 03:50 :00 No 4mg 4 mg, Slow IV Push, ONCE, 1 dose, On Sat12/13/21 at 2345[facility] FENT[facility] (SUBLIMAZE (PF)) injection [...] 12-14 00:00: 00 02-15 00:00 :00 No [id number] 500mg Take 1 tablet by mouth 2 (two) times daily with meals. [facility] cefpodoxime 200 mg tablet 12-14 00:00: 00 12-22 04:59 :00 No [id number] 200mg Take 1 tablet by mouth 2 [...] 1 dose, On 11/11/21 at 2230, Routine
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 [facility] cefdinir 300 mg capsule 09-11 00:00: 00 09-19 04:59 :00 No [id number] 300mg Take 1 capsule by mouth 2 [...] 500 mg tablet 08-15 00:00: 00 Yes [id number] 500mg Take 1 tablet by mouth every [...] 08-15 00:00: 00 02-15 00:00 :00 No [id number] 100mg Take 1 capsule by mouth 2 [...] 2020-07 00:00: 00 06-13 05:59 :00 No [id number] 20mg Take 1 tablet by mouth 2 (two) times daily for 15 days. [facility] escitalopra m oxalate (LEXAPRO) tablet 10 mg 2020-07 003 02:00: 00 Yes 10mg 10 mg, Oral, QHS, First dose on 04/08/21 at 2100, Until Discontinu ed, Routine [facility] aspirin 81 mg chewable tablet 2020-07 0- 00:00: 00 05-10 04:59 :00 No [id number] 81mg Take 1 tablet by mouth daily for 30 days. [facility] traZODone (DESYREL) tablet 200 mg 2020-07 22:00: 00 Yes 200mg 200 mg, Oral, QPM, First dose on 04/08/21 at 1700, Until Discontinu ed [facility] topiramate (TOPAMAX) tablet 200 mg 2020-07 22:00: 00 Yes 200mg 200 mg, Oral, QPM, First dose on 04/08/21 at 1700, Until Discontinu ed, Routine
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 [facility] Rolla-3-DHA -EPA-Fish Oil (FISH OIL) 1,000 mg (120 [...] at 0900, Until Discontinu ed, Routine [facility] enoxaparin (LOVENOX) injection 40 mg 2020-07 14:00: 00 Yes 40mg 40 mg, Subcutaneo us, DAILY, First dose on Sat04/08/21 at 0900, Until Discontinu ed, Routine [facility] OLANZapine (ZyPREXA) tablet 2.5 mg 2020-07 13:00: 00 Yes 2.5mg 2.5 mg, Oral, BID, First dose on Sat04/08/21 at 0800, Until Discontinu ed, Routine [facility] methocarbam oL (ROBAXIN) tablet 750 mg 2020-07 13:00: 00 Yes 750mg 750 mg, Oral, TID, First dose on Sat04/08/21 at 0800, Until Discontinu ed, Routine [facility] LORazepam (ATIVAN) injection 0.5 mg 2020-07 04:07: 43 Yes .5mg 0.5 mg, Slow IV Push, PRN, 2 doses, Starting on Sat04/07/21 at 2307, Until Discontinu ed, Routine, Anxiety [facility] hydrOXYzine (ATARAX) tablet 50 mg 2020-07 02:51: 23 Yes 50mg 50 mg, Oral, Q4HPRN, Starting on Sat04/07/21 at 2151, Until Discontinu ed, Itching [facility] LORazepam (ATIVAN) tablet 0.5 mg 2020-07 02:05: 29 Yes .5mg 0.5 mg, Oral, PRN, 2 doses, Starting on Sat04/07/21 at 2105, Until Discontinu ed, Routine, Anxiety [facility] morpHINE injection 4 mg 2020-07 00:00: 00 04-07 22:58 :00 No 4mg 4 mg, Slow IV Push, ONCE, 1 dose, On Sat04/07/21 at 1900, STAT [facility] ondansetron (ZOFRAN (PF)) injection 4 mg 2020-07 00:00: 00 04-07 22:56 :00 No 4mg 4 mg, Slow IV Push, ONCE, 1 dose, On Sat04/07/21 at 1900, RO[facility] morpHINE injection 4 mg 2020-07 23:58: 03 04-08 23:57 :03 No 4mg 4 mg, Slow IV Push, Q4HPRN, Starting on Sat04/07/21 at 1858, Until 04/08/21 at 1857, Routine, Pain (scale 7-10) [facility] HYDROcodone -acetaminop hen (NORCO 5) 5-325 mg tablet 1 tablet 2020-07 23:58: 00 04-09 23:57 :00 No 1{tbl} 1 tablet, Oral, Q6HPRN, Starting on Sat04/07/21 at 1858, Until 04/09/21 at 1857, Routine, Pain (scale 4-6) [facility] acetaminoph en (TYLENOL) tablet 650 mg 2020-07 23:57: 57 Yes 650mg 650 mg, Oral, Q6HPRN, Starting on Sat04/07/21 at 1857, Until Discontinu ed, Routine, Pain (scale 1-3) [facility] aspirin tablet 325 mg 2020-07 23:00: 00 04-07 21:56 :00 No 325mg 325 mg, Oral, ONCE, 1 dose, On Sat04/07/21 at 1800, STAT [facility] nitroglycer in (NITROSTAT) sublingual tablet 0.4 mg 2020-07 21:51: 01 04-07 22:46 :00 No .4mg 0.4 mg, Sublingual , Q5MIN PRN, 3 doses, Starting on Sat04/07/21 at 1651, Until Discontinu ed, ROSELYN, Chest pain [facility] fluconazole (DIFLUCAN) tablet 150 mg 01-12 14:00: 00 Yes 150mg 150 mg, Oral, DAILY, First dose on [place] 01/12/21 at 0900, Until Discontinu ed, ROSELYN
Re ason for Anti-Infec tive: Empiric Therapy for Suspected Infection< br>Empiric Therapy Site: HEENT
D uration of therapy: 72 hours [facility] cefTRIAXone (ROCEPHIN) 1,000 mg in NaCl [...] 01-12 00:00: 00 04-07 00:00 :00 No [id number] 500mg Take 1 capsule by mouth 3 [...] ONCE, 1 dose, 12/10/20 at 1845, ROSELYN [facility] NaCl 0.9% (NS) bolus infusion 2,000 mL 12-10 22:45: 00 12-11 01:29 :00 No 2000mL at 999 mL/hr, 2,000 mL, IV Infusion, ONCE, 1 dose, 12/10/20 at 1745, ROSELYN [facility] proMETHazin e 25 mg tablet 12-10 00:00: 00 04-07 00:00 :00 No [id number] 12.5mg Take 0.5 tablets by mouth every [...] mg, Slow IV Push, ONCE, 1 dose, [place] 12/04/20 at 1615, ROSELYN [facility] morpHINE injection 4 mg 12-04 21:15: 00 12-04 20:21 :00 No 4mg 4 mg, Slow IV Push, ONCE, 1 dose, [place] 12/04/20 at 1615, STAT [facility] ALPRAZolam (XANAX) 2 mg tablet 11-04 04:24: 19 11-03 00:00 :00 No 2mg Take 2 mg by mouth at bedtime. [facility] LORazepam (ATIVAN) injection 1 mg 11-04 04:00: 00 11-04 02:57 :00 No 1mg 1 mg, Slow IV Push, ONCE, 1 dose, [facility] 11/03/20 at 2300, STAT [facility] LORazepam (ATIVAN) tablet 1 mg 11-04 04:00: 00 11-04 02:57 :00 No 1mg 1 mg, Oral, ONCE, 1 dose, [facility] 11/03/20 at 2300, ROSELYN [facility] [...] 10 mg by mouth. [facility] Ciprofloxac in/Dexameth asone (Ciprodex 0.3%-0.1% Otic*) 1 Ea SUSP Ciprofloxac in/Dexameth asone (Ciprodex 0.3%-0.1% Otic*) 1 Ea SUSP 09-19 13:53: 00 09-30 00:00 :00 No 3 [facility] ibuprofen (IBU) tablet 800 mg 09-17 16:55: 00 09-17 16:57 :00 No 800mg 800 mg, Oral, ONCE, 1 dose, 09/17/20 at 1100, ROSELYN [facility] benzonatate 100 mg capsule 09-17 00:00: 00 04-07 00:00 :00 No [id number] 100mg Take 1 capsule by mouth 3 (three) times daily as needed for Cough. [facility] amoxicillin 500 mg capsule 09-17 00:00: 00 09-28 04:59 :00 No [id number] 500mg Take 1 capsule by mouth 3 (three) times daily for 10 days. [facility] HYDROcodone -acetaminop hen (NORCO) 10-325 mg tablet 1 tablet 09-07 07:45: 00 09-07 07:09 :00 No 1{tbl} 1 tablet, Oral, ONCE, 1 dose, 09/07/20 at 0145, Routine [facility] ondansetron (ZOFRAN-ODT ) disintegrat ing tablet 4 mg 09-07 07:15: 00 09-07 07:15 :00 No 4mg 4 mg, Oral, ONCE, 1 dose, 09/07/20 at 0130, Routine [facility] ibuprofen 800 mg tablet 09-07 00:00: 00 Yes [id number] 800mg Take 1 tablet by mouth every 8 (eight) hours as needed for Pain (scale 4-6). [facility] ketorolac (TORADOL) injection 30 mg 08-28 10:45: 00 08-28 09:48 :00 No 30mg 30 mg, Slow IV Push, ONCE, 1 dose, 08/28/20 at 0445, Routine
[employer] member other ranks approving Restricted medication : OLIVIA GARCIA [place] [...] 08/28/20 at 0400, Routine [facility] iohexol (OMNIPAQUE 350 BULK-100 mL) injection 120 mL 08-28 09:30: 00 08-28 09:11 :00 No 120mL 120 mL, Intravenou s, ONCE, 1 dose, 08/28/20 at 0330, Routine [facility] dicyclomine 20 mg tablet 08-28 00:00: 00 04-07 00:00 :00 No [id number] 20mg Take 1 tablet by mouth every 6 (six) hours as needed for Abdominal pain. [facility] ondansetron (ZOFRAN) 4 mg tablet 08-28 00:00: 00 09-17 00:00 :00 No [id number] 4mg Take 1 tablet by mouth every 8 (eight) hours as needed for Nausea and Vomiting (N/V). [facility] FENTanyl PF (SUBLIMAZE (PF)) injection 25 mcg 08-14 19:00: 00 08-14 18:09 :00 No 25ug 25 mcg, Slow IV Push, ONCE, 1 dose, 2/7/21 at 1300, STAT [facility] ondansetron [...] 08-14 00:00: 00 04-07 00:00 :00 No [id number] 100mg Take 5 mL by mouth every 4 (four) hours. [facility] ondansetron 4 mg disintegrat ing tablet 08-14 00:00: 00 09-17 00:00 :00 No [id number] 4mg Take 1 tablet by mouth every 8 (eight) hours as needed for Nausea and Vomiting (N/V). [facility] ibuprofen 600 mg tablet 08-14 00:00: 00 09-17 00:00 :00 No [id number] 600mg Take 1 tablet by mouth every 6 (six) hours as needed for Pain (scale 4-6). [facility] amoxicillin -clavulanat e 875-125 mg per tablet 08-14 00:00: 00 08-25 05:59 :00 No [id number] 1{tbl} Take 1 tablet by mouth 2 [...] 1,000 mL, IV Infusion, ONCE, 1 dose, 2/3/21 at 1945, STAT [facility] ketorolac [...] 08-07 00:00: 00 09-17 00:00 :00 No [id number] 800mg Take 1 tablet by mouth every 8 (eight) hours. [facility] amoxicillin 500 mg capsule 08-07 00:00: 00 09-17 00:00 :00 No [id number] 500mg Take 1 capsule by mouth 3 [...] 4mg 4 mg, Oral, ONCE, 1 dose, [facility] 06/30/20 at 1915, Routine [facility] ketorolac (TORADOL) injection 30 mg 2019-07 01:15: 00 07-01 00:52 :00 No 30mg 30 mg, Slow IV Push, ONCE, 1 dose, [place] 06/30/20 at 1915, [facility] : ABDIAS ROBERTSON [facility] albuterol 90 mcg/actuati on inhaler 2019-07 00:00: 00 04-07 00:00 :00 No [id number] 2{puff} Inhale 2 Puffs every 4 (four) hours as needed for Wheezing or Shortness of Breath. [facility] hydrOXYzine 25 mg tablet 2019-07 00:00: 09-17 00:00 :00 No [id number] 25mg Take 1 tablet by mouth every 6 (six) hours as needed for Anxiety. [facility] naproxen sodium (ANAPROX DS) 550 mg tablet 2019-07 00:00: 00 04-07 00:00 :00 No [id number] 550mg Take 1 tablet by mouth 2 (two) times daily with meals. [facility] methylPREDN ISolone (MEDROL, BEBETO,) 4 mg tablets 2019-07 00:00: 09-17 00:00 :00 No [id number] Take by mouth SEE-INSTRU CTIONS. follow package directions [facility] methocarbam oL 500 mg tablet 2019-07 00:00: 00 07-04 05:59 :00 No [id number] 500mg Take 1 tablet by mouth 3 (three) times daily for 5 days. [facility] proMETHazin e (PHENERGAN) tablet 25 mg 2019-07 04:45: 00 06-13 03:37 :00 No 25mg 25 mg, Oral, ONCE, 1 dose, [place] 12[facility] 2245[facility] 4 mg 2019-07 03:00: 00 06-13 01:59 :00 No 4mg 4 mg, Slow IV Push, ONCE, 1 dose, 06/12/20 at 2100, [facility] ketorolac (TORADOL) injection 15 mg 2019-07 03:00: 00 06-13 01:58 :00 No 15mg 15 mg, Intramuscu lar, ONCE, 1 dose, 06/12/20 at 2100, [facility]
Fa culty member approving Restricted [...] Push, ONCE, 1 dose, 06/12/20 at 1845, [facility] NaCl 0.9% (NS) bolus infusion 1,000 mL 2019-07 23:45: 00 06-13 03:54 :00 No 1000mL at 999 mL/hr, 1,000 mL, IV Infusion, ONCE, 1 dose, 06/12/20 at 1745, [facility] dicyclomine 20 mg tablet 2019-07 00:00: 00 04-07 00:00 :00 No [id number] 20mg Take 1 tablet by mouth 4 (four) times daily as needed for Abdominal pain. [facility] proMETHazin e 25 mg tablet 2019-07 00:00: 00 09-17 00:00 :00 No [id number] 25mg Take 1 tablet by mouth every 6 (six) hours as needed for Nausea and Vomiting (N/V). [facility] famotidine 20 mg tablet 2019-07 00:00: 00 06-27 05:59 :00 No [id number] 20mg Take 1 tablet by mouth at [...] 1,000 mL, IV Infusion, ONCE, 1 dose, [facility] 05/16/20 at 1745, [facility] proMETHazin e (PHENERGAN) 25 mg suppository 2019-07 00:00: 00 Yes [id number] 25mg Insert 1 Suppositor y into rectum every 4 (four) hours as needed for Nausea and Vomiting (N/V). [facility] ondansetron (ZOFRAN (PF)) injection 4 mg 2019-07 07:30: 00 05-15 06:26 :00 No 4mg 4 mg, Slow IV Push, ONCE, 1 dose, [facility] 0130[facility] (OMNIPAQUE 350 BULK-100 mL) injection 120 mL 2019-07 07:00: 00 05-15 06:52 :00 No 120mL 120 mL, Intravenou s, ONCE, 1 dose, 05/15/20 at 0100, Routine [facility] ondansetron (ZOFRAN (PF)) injection 4 mg 2019-07 06:30: 00 05-15 05:52 :00 No 4mg 4 mg, Slow IV Push, ONCE, 1 dose, 05/15/20 at 0030, [facility] ALPRAZolam (XANAX) 2 mg tablet 2019-07 05:30: 59 Yes 2mg Take 2 mg by mouth at bedtime. [facility] zolpidem 5 mg tablet 2020-0 6-15 00:00: 00 04-07 00:00 :00 No 5mg Take 5 mg by mouth. [facility] Immunizations Ordered Immunization Name Filled Immunization Name Date Status Comments Source Covid-19 Vaccine Moderna (Spikevax), Mrna-lnp, Zackery Protein, Pf Unknown Completed [facility] - External Covid-19 Vaccine Moderna (Spikevax), Mrna-lnp, Zackery Protein, Pf Unknown Completed [facility] - External Covid-19 Vaccine Moderna (Spikevax), Mrna-lnp, Zackery Protein, Pf Unknown Completed [facility] External Covid-19 Vaccine Moderna (Spikevax), Mrna-lnp, Zackery Protein, Pf Unknown Completed [facility] External Covid-19 Vaccine Moderna (Spikevax), Mrna-lnp, Zackery Protein, Pf Unknown Completed [facility] External Covid-19 Vaccine Moderna (Spikevax), Mrna-lnp, Zackery Protein, Pf Unknown Completed [facility] External Covid-19 Vaccine Moderna (Spikevax), Mrna-lnp, Zackery Protein, Pf Unknown Completed [facility] External Covid-19 Vaccine Moderna (Spikevax), Mrna-lnp, Zackery Protein, Pf Unknown Completed [facility] Vital Signs Vital Name Observation Time Observation Value Comments S florace Body temperature 2024-07-19 07:17:00 36.56 Latanya [facility] Heart rate 2024-07-19 07:14:00 74 /min [facility] Respiratory rate 2024-07-19 07:14:00 27 /min [facility] Oxygen saturation in Arterial blood by Pulse oximetry 2024-07-19 07:14:00 100 /min [facility] Systolic blood pressure 2024-07-19 07:00:00 123 mm[Hg] [facility] Diastolic blood pressure 2024-07-19 07:00:00 93 mm[Hg] [facility] Body height 2024-07-19 04:44:00 157.5 cm [facility] Body weight 2024-07-19 04:44:00 104.327 kg [facility] BMI 2024-07-19 04:44:00 42.07 kg/m2 [facility] Systolic blood pressure 2024-07-04 07:00:00 132 mm[Hg] [facility] Diastolic blood pressure 2024-07-04 07:00:00 98 mm[Hg] [facility] Heart rate 2024-07-04 07:00:00 85 /min [facility] Body temperature 2024-07-04 07:00:00 36.78 Latanya [facility] Respiratory rate 2024-07-04 07:00:00 18 /min [facility] Oxygen saturation in Arterial blood by Pulse oximetry 2024-07-04 07:00:00 94 /min [facility] Body height 2024-07-04 01:53:00 157.5 cm [facility] Body weight 2024-07-04 01:53:00 105.688 kg [facility] BMI 2024-07-04 01:53:00 42.62 kg/m2 [facility] Systolic blood pressure 2024-06-21 08:00:00 180 mm[Hg] [facility] Diastolic blood pressure 2024-06-21 08:00:00 107 mm[Hg] [facility] Heart rate 2024-06-21 08:00:00 89 /min [facility] Body temperature 2024-06-21 08:00:00 37.11 Latanya [facility] Respiratory rate 2024-06-21 08:00:00 22 /min [facility] Body height 2024-06-21 08:00:00 157.5 cm [facility] Body weight 2024-06-21 08:00:00 108.41 kg [facility] BMI 2024-06-21 08:00:00 43.71 kg/m2 [facility] Oxygen saturation in Arterial blood by Pulse oximetry 2024-06-21 08:00:00 100 /min [facility] Heart rate 2024-06-15 06:22:00 87 /min [facility] Body temperature 2024-06-15 06:22:00 37.11 Latanya [facility] Oxygen saturation in Arterial blood by Pulse oximetry 2024-06-15 06:22:00 96 /min [facility] Systolic blood pressure 2024-06-15 06:00:00 137 mm[Hg] [facility] Diastolic blood pressure 2024-06-15 06:00:00 85 mm[Hg] [facility] Respiratory rate 2024-06-15 06:00:00 15 /min [facility] Body height 2024-06-15 03:23:00 157.5 cm [facility] Body weight 2024-06-15 03:23:00 109.997 kg [facility] BMI 2024-06-15 03:23:00 44.35 kg/m2 [facility] Body temperature 2024-06-07 08:35:48 36.89 Latanya [facility] Systolic blood pressure 2024-06-07 08:00:00 129 mm[Hg] [facility] Diastolic blood pressure 2024-06-07 08:00:00 108 mm[Hg] [facility] Heart rate 2024-06-07 08:00:00 69 /min [facility] Respiratory rate 2024-06-07 08:00:00 24 /min [facility] Oxygen saturation in Arterial blood by Pulse oximetry 2024-06-07 08:00:00 97 /min [facility] Body height 2024-06-07 04:02:00 157.5 cm [facility] Body weight 2024-06-07 04:02:00 105.688 kg [facility] BMI 2024-06-07 04:02:00 42.62 kg/m2 [facility] Systolic blood pressure 2024-05-19 19:32:00 130 mm[Hg] [facility] Diastolic blood pressure 2024-05-19 19:32:00 74 mm[Hg] [facility] Heart rate 2024-05-19 19:32:00 84 /min [facility] Respiratory rate 2024-05-19 19:32:00 18 /min [facility] Oxygen saturation in Arterial blood by Pulse oximetry 2024-05-19 19:32:00 99 /min [facility] Body temperature 2024-05-19 17:44:00 36.83 Latanya [facility] Body height 2024-05-19 17:44:00 157.5 cm [facility] Body weight 2024-05-19 17:44:00 108.863 kg [facility] BMI 2024-05-19 17:44:00 43.90 kg/m2 [facility] Systolic blood pressure 2024-05-18 16:21:00 126 mm[Hg] [facility] - [facility] Diastolic blood pressure 2024-05-18 16:21:00 78 mm[Hg] [facility] - [facility] Heart rate 2024-05-18 16:21:00 95 /min [facility] - [facility] Body temperature 2024-05-18 16:21:00 35.94 Latanya [facility] Sey[facility] - External Respiratory rate 2024-05-18 16:21:00 15 /min Kellee Ariasybold - External Body height 2024-05-18 16:21:00 157.5 cm [facility] Ariasybold - External Body weight 2024-05-18 16:21:00 110.678 kg [facility] - [facility] BMI 2024-05-18 16:21:00 44.63 kg/m2 [facility] - [facility] Heart rate 2024-05-18 04:14:00 111 /min [facility] Body temperature 2024-05-18 04:14:00 37 Latanya [facility] Respiratory rate 2024-05-18 04:14:00 27 /min [facility] Oxygen saturation in Arterial blood by Pulse oximetry 2024-05-18 04:14:00 94 /min [facility] Systolic blood pressure 2024-05-18 04:00:00 141 mm[Hg] [facility] Diastolic blood pressure 2024-05-18 04:00:00 122 mm[Hg] [facility] Body height 2024-05-18 00:33:00 157.5 cm [facility] Body weight 2024-05-18 00:33:00 107.502 kg [facility] BMI 2024-05-18 00:33:00 43.35 kg/m2 [facility] Heart rate 2024-05-08 02:05:00 91 /min [facility] Respiratory rate 2024-05-08 02:05:00 22 /min [facility] Oxygen saturation in Arterial blood by Pulse oximetry 2024-05-08 02:05:00 95 /min [facility] Systolic blood pressure 2024-05-08 02:00:00 140 mm[Hg] [facility] Diastolic blood pressure 2024-05-08 02:00:00 86 mm[Hg] [facility] Body temperature 2024-05-07 23:46:00 36.78 Latanya [facility] Body height 2024-05-07 23:46:00 157.5 cm [facility] Body weight 2024-05-07 23:46:00 107.729 kg [facility] BMI 2024-05-07 23:46:00 43.44 kg/m2 [facility] Height 2024-04-10 16:28:00 157.420527 cm [facility] Weight 2024-04-10 16:28:00 104.590190 kg [facility] BMI (Body Mass Index) 2024-04-10 16:28:00 42.1 kg/m2 [facility] Systolic blood pressure 2024-04-09 01:30:00 134 mm[Hg] [facility] Diastolic blood pressure 2024-04-09 01:30:00 64 mm[Hg] [facility] Heart rate 2024-04-09 01:30:00 102 /min [facility] Body temperature 2024-04-09 01:30:00 36.61 Latanya [facility] Respiratory rate 2024-04-09 01:30:00 17 /min [facility] Oxygen saturation in Arterial blood by Pulse oximetry 2024-04-09 01:30:00 96 /min [facility] Body height 2024-04-08 22:31:00 157.5 cm [facility] Body weight 2024-04-08 22:31:00 104.327 kg [facility] BMI 2024-04-08 22:31:00 42.07 kg/m2 [facility] Body temperature 2023-12-13 14:10:00 36.72 Latanya Kellee [...] pressure 2023-10-11 05:00:00 126 mm[Hg] [facility] Diastolic blood pressure 2023-10-11 05:00:00 87 mm[Hg] [facility] Heart rate 2023-10-11 05:00:00 94 /min [facility] Respiratory rate 2023-10-11 05:00:00 22 /min [facility] Oxygen saturation in Arterial blood by Pulse oximetry 2023-10-11 05:00:00 98 /min [facility] Body temperature 2023-10-11 02:28:00 37.22 Latanya [facility] Body height 2023-10-11 02:28:00 157.5 cm [facility] Body weight 2023-10-11 02:28:00 99.791 kg [facility] BMI 2023-10-11 02:28:00 40.24 kg/m2 [facility] Systolic blood pressure 2023-07-02 04:10:00 147 mm[Hg] [facility] Diastolic blood pressure 2023-07-02 04:10:00 89 mm[Hg] [facility] Heart rate 2023-07-02 04:10:00 73 /min [facility] Respiratory rate 2023-07-02 04:10:00 19 /min [facility] Oxygen saturation in Arterial blood by Pulse oximetry 2023-07-02 04:10:00 98 /min [facility] Body temperature 2023-07-02 01:47:00 36.78 Latanya [facility] Body height 2023-07-02 01:47:00 160 cm [facility] Body weight 2023-07-02 01:47:00 97.659 kg [facility] BMI 2023-07-02 01:47:00 38.14 kg/m2 [facility] Systolic blood pressure 2023-05-10 01:00:00 133 mm[Hg] [facility] Diastolic blood pressure 2023-05-10 01:00:00 81 mm[Hg] [facility] Heart rate 2023-05-10 01:00:00 64 /min [facility] Respiratory rate 2023-05-10 01:00:00 21 /min [facility] Oxygen saturation in Arterial blood by Pulse oximetry 2023-05-10 01:00:00 96 /min [facility] Body temperature 2023-05-09 22:43:00 36.67 Latanya [facility] Body height 2023-05-09 22:43:00 157.5 cm [facility] Body weight 2023-05-09 22:43:00 99.791 kg [facility] BMI 2023-05-09 22:43:00 40.24 kg/m2 [facility] Systolic blood pressure 2023-05-01 01:00:00 107 mm[Hg] [facility] Diastolic blood pressure 2023-05-01 01:00:00 80 mm[Hg] [facility] Heart rate 2023-05-01 01:00:00 80 /min [facility] Body temperature 2023-05-01 01:00:00 37.06 Latanya [facility] Respiratory rate 2023-05-01 01:00:00 16 /min [facility] Oxygen saturation in Arterial blood by Pulse oximetry 2023-05-01 01:00:00 98 /min [facility] Body height 2023-04-30 22:16:00 157.5 cm [facility] Body weight 2023-04-30 22:16:00 95.255 kg [facility] BMI 2023-04-30 22:16:00 38.41 kg/m2 [facility] Systolic blood pressure 2023-04-17 02:00:00 147 mm[Hg] [facility] Diastolic blood pressure 2023-04-17 02:00:00 83 mm[Hg] [facility] Heart rate 2023-04-17 02:00:00 90 /min [facility] Respiratory rate 2023-04-17 02:00:00 18 /min [facility] Oxygen saturation in Arterial blood by Pulse oximetry 2023-04-17 02:00:00 96 /min [facility] Body temperature 2023-04-17 01:33:00 36.78 Latanya [facility] Body height 2023-04-17 01:33:00 157.5 cm [facility] Body weight 2023-04-17 01:33:00 99.791 kg [facility] BMI 2023-04-17 01:33:00 40.24 kg/m2 [facility] Systolic blood pressure 2023-04-09 01:04:48 135 mm[Hg] [facility] Diastolic blood pressure 2023-04-09 01:04:48 84 mm[Hg] [facility] Heart rate 2023-04-09 01:04:48 67 /min [facility] Respiratory rate 2023-04-09 01:04:48 16 /min [facility] Oxygen saturation in Arterial blood by Pulse oximetry 2023-04-09 01:04:48 99 /min [facility] Body temperature 2023-04-08 22:16:00 36.67 Latanya [facility] Body height 2023-04-08 22:16:00 157.5 cm [facility] Body weight 2023-04-08 22:16:00 99.791 kg [facility] BMI 2023-04-08 22:16:00 40.24 kg/m2 [facility] Systolic blood pressure 2023-03-10 05:00:00 156 mm[Hg] [facility] Diastolic blood pressure 2023-03-10 05:00:00 94 mm[Hg] [facility] Heart rate 2023-03-10 05:00:00 75 /min [facility] Respiratory rate 2023-03-10 05:00:00 21 /min [facility] Oxygen saturation in Arterial blood by Pulse oximetry 2023-03-10 05:00:00 97 /min [facility] Body temperature 2023-03-10 01:20:00 36.72 Latanya [facility] Body height 2023-03-10 01:20:00 157.5 cm [facility] Body weight 2023-03-10 01:20:00 100.381 kg [facility] BMI 2023-03-10 01:20:00 40.48 kg/m2 [facility] Systolic blood pressure 2023-03-02 06:00:00 126 mm[Hg] [facility] Diastolic blood pressure 2023-03-02 06:00:00 79 mm[Hg] [facility] Heart rate 2023-03-02 06:00:00 69 /min [facility] Respiratory rate 2023-03-02 06:00:00 23 /min [facility] Oxygen saturation in Arterial blood by Pulse oximetry 2023-03-02 06:00:00 94 /min [facility] Body temperature 2023-03-02 00:34:00 37.28 Latanya [facility] Body height 2023-03-02 00:34:00 157.5 cm [facility] Body weight 2023-03-02 00:34:00 99.791 kg [facility] BMI 2023-03-02 00:34:00 40.24 kg/m2 [facility] Systolic blood pressure 2023-02-18 06:46:00 126 mm[Hg] [facility] Diastolic blood pressure 2023-02-18 06:46:00 77 mm[Hg] [facility] Heart rate 2023-02-18 06:46:00 79 /min [facility] Respiratory rate 2023-02-18 06:46:00 16 /min [facility] Oxygen saturation in Arterial blood by Pulse oximetry 2023-02-18 06:46:00 95 /min [facility] Body temperature 2023-02-18 03:55:00 36.72 Latanya [facility] Body height 2023-02-18 03:55:00 157.5 cm [facility] Body weight 2023-02-18 03:55:00 102.331 kg [facility] BMI 2023-02-18 03:55:00 41.26 kg/m2 [facility] Systolic blood pressure 2023-02-17 16:20:00 113 mm[Hg] [facility] Diastolic blood pressure 2023-02-17 16:20:00 65 mm[Hg] [facility] Heart rate 2023-02-17 16:20:00 65 /min [facility] Body temperature 2023-02-17 16:20:00 36.83 Latanya [facility] Respiratory rate 2023-02-17 16:20:00 16 /min [facility] Oxygen saturation in Arterial blood by Pulse oximetry 2023-02-17 16:20:00 97 /min [facility] Body weight 2023-02-17 08:50:00 99.973 kg [facility] BMI 2023-02-17 08:50:00 40.31 kg/m2 [facility] Body height 2023-02-16 01:19:00 157.5 cm [facility] Systolic blood pressure 2022-01-10 01:24:00 120 mm[Hg] [facility] Diastolic blood pressure 2022-01-10 01:24:00 76 mm[Hg] [facility] Heart rate 2022-01-10 01:24:00 73 /min [facility] Respiratory rate 2022-01-10 01:24:00 16 /min [facility] Oxygen saturation in Arterial blood by Pulse oximetry 2022-01-10 01:24:00 96 /min [facility] Body weight 2022-01-09 21:39:00 104.327 kg [facility] BMI 2022-01-09 21:39:00 42.07 kg/m2 [facility] Systolic blood pressure 2021-12-14 07:22:00 121 mm[Hg] [facility] Diastolic blood pressure 2021-12-14 07:22:00 86 mm[Hg] [facility] Heart rate 2021-12-14 07:22:00 80 /min [facility] Respiratory rate 2021-12-14 07:22:00 17 /min [facility] Oxygen saturation in Arterial blood by Pulse oximetry 2021-12-14 07:22:00 96 /min [facility] Body temperature 2021-12-14 03:06:00 36.72 Latanya [facility] Body height 2021-12-14 03:06:00 157.5 cm [facility] Body weight 2021-12-14 03:06:00 95.255 kg [facility] BMI 2021-12-14 03:06:00 38.41 kg/m2 [facility] Systolic blood pressure 2021-11-12 04:15:00 112 mm[Hg] [facility] Diastolic blood pressure 2021-11-12 04:15:00 75 mm[Hg] [facility] Heart rate 2021-11-12 04:15:00 92 /min [facility] Body temperature 2021-11-12 04:15:00 36.44 Latanya [facility] Respiratory rate 2021-11-12 04:15:00 18 /min [facility] Oxygen saturation in Arterial blood by Pulse oximetry 2021-11-12 04:15:00 98 /min [facility] Body height 2021-11-12 00:41:00 157.5 cm [facility] Body weight 2021-11-12 00:41:00 95.255 kg [facility] BMI 2021-11-12 00:41:00 38.41 kg/m2 [facility] Systolic blood pressure 2021-09-12 01:31:00 142 mm[Hg] [facility] Diastolic blood pressure 2021-09-12 01:31:00 80 mm[Hg] [facility] Heart rate 2021-09-12 01:31:00 78 /min [facility] Body temperature 2021-09-12 01:31:00 36.72 Latanya [facility] Respiratory rate 2021-09-12 01:31:00 18 /min [facility] Body height 2021-09-12 01:31:00 157.5 cm [facility] Body weight 2021-09-12 01:31:00 99.791 kg [facility] BMI 2021-09-12 01:31:00 40.24 kg/m2 [facility] Oxygen saturation in Arterial blood by Pulse oximetry 2021-09-12 01:31:00 97 /min [facility] Systolic blood pressure 2021-08-15 08:20:00 120 mm[Hg] [facility] Diastolic blood pressure 2021-08-15 08:20:00 74 mm[Hg] [facility] Heart rate 2021-08-15 08:20:00 69 /min [facility] Respiratory rate 2021-08-15 08:20:00 20 /min [facility] Oxygen saturation in Arterial blood by Pulse oximetry 2021-08-15 08:20:00 96 /min [facility] Body temperature 2021-08-15 05:34:00 36.22 Latanya [facility] Body height 2021-08-15 05:34:00 157.5 cm [facility] Body weight 2021-08-15 05:34:00 99.791 kg [facility] BMI 2021-08-15 05:34:00 40.24 kg/m2 [facility] Systolic blood pressure 2021-05-28 10:00:00 122 mm[Hg] [facility] Diastolic blood pressure 2021-05-28 10:00:00 78 mm[Hg] [facility] Heart rate 2021-05-28 10:00:00 75 /min [facility] Respiratory rate 2021-05-28 10:00:00 20 /min [facility] Oxygen saturation in Arterial blood by Pulse oximetry 2021-05-28 10:00:00 99 /min [facility] Body temperature 2021-05-28 05:21:00 36.11 Latanya [facility] Body height 2021-05-28 05:21:00 157.5 cm [facility] Body weight 2021-05-28 05:21:00 99.791 kg [facility] BMI 2021-05-28 05:21:00 40.24 kg/m2 [facility] Systolic blood pressure 2021-04-08 21:55:00 110 mm[Hg] [facility] Diastolic blood pressure 2021-04-08 21:55:00 80 mm[Hg] [facility] Heart rate 2021-04-08 21:55:00 70 /min [facility] Body temperature 2021-04-08 21:55:00 36.28 Latanya [facility] Respiratory rate 2021-04-08 21:55:00 16 /min [facility] Oxygen saturation in Arterial blood by Pulse oximetry 2021-04-08 21:55:00 94 /min [facility] Body height 2021-04-08 03:00:00 157.5 cm [facility] Body weight 2021-04-08 03:00:00 105.688 kg [facility] BMI 2021-04-08 03:00:00 42.62 kg/m2 [facility] Systolic blood pressure 2021-01-12 09:00:00 147 mm[Hg] [facility] Diastolic blood pressure 2021-01-12 09:00:00 71 mm[Hg] [facility] Heart rate 2021-01-12 09:00:00 103 /min [facility] Respiratory rate 2021-01-12 09:00:00 18 /min [facility] Oxygen saturation in Arterial blood by Pulse oximetry 2021-01-12 09:00:00 97 /min [facility] Body temperature 2021-01-12 07:48:00 37.06 Latanya [facility] Body height 2021-01-12 07:48:00 157.5 cm [facility] Body weight 2021-01-12 07:48:00 102.513 kg [facility] BMI 2021-01-12 07:48:00 41.34 kg/m2 [facility] Systolic blood pressure 2020-12-11 01:30:00 136 mm[Hg] [facility] Diastolic blood pressure 2020-12-11 01:30:00 88 mm[Hg] [facility] Heart rate 2020-12-11 01:30:00 99 /min [facility] Respiratory rate 2020-12-11 01:30:00 28 /min [facility] Oxygen saturation in Arterial blood by Pulse oximetry 2020-12-11 01:30:00 97 /min [facility] Body temperature 2020-12-10 22:11:00 36.78 Latanya [facility] Body weight 2020-12-10 22:11:00 99.791 kg [facility] BMI 2020-12-10 22:11:00 40.24 kg/m2 [facility] Systolic blood pressure 2020-12-04 21:30:00 126 mm[Hg] [facility] Diastolic blood pressure 2020-12-04 21:30:00 79 mm[Hg] [facility] Heart rate 2020-12-04 21:30:00 91 /min [facility] Respiratory rate 2020-12-04 21:30:00 20 /min [facility] Oxygen saturation in Arterial blood by Pulse oximetry 2020-12-04 21:30:00 96 /min [facility] Body temperature 2020-12-04 19:49:00 37.06 Latanya [facility] Body height 2020-12-04 19:49:00 157.5 cm [facility] Body weight 2020-12-04 19:49:00 99.791 kg [facility] BMI 2020-12-04 19:49:00 40.24 kg/m2 [facility] Systolic blood pressure 2020-11-04 01:42:00 142 mm[Hg] [facility] Diastolic blood pressure 2020-11-04 01:42:00 100 mm[Hg] [facility] Heart rate 2020-11-04 01:42:00 109 /min [facility] Body temperature 2020-11-04 01:42:00 36.78 Latanya [facility] Respiratory rate 2020-11-04 01:42:00 20 /min [facility] Body weight 2020-11-04 01:42:00 99.791 kg [facility] BMI 2020-11-04 01:42:00 40.24 kg/m2 [facility] Oxygen saturation in Arterial blood by Pulse oximetry 2020-11-04 01:42:00 98 /min [facility] Systolic blood pressure 2020-09-17 15:52:00 138 mm[Hg] [facility] Diastolic blood pressure 2020-09-17 15:52:00 94 mm[Hg] [facility] Heart rate 2020-09-17 15:52:00 98 /min [facility] Body temperature 2020-09-17 15:52:00 36.94 Latanya [facility] Respiratory rate 2020-09-17 15:52:00 20 /min [facility] Body weight 2020-09-17 15:52:00 95.255 kg [facility] BMI 2020-09-17 15:52:00 38.41 kg/m2 [facility] Oxygen saturation in Arterial blood by Pulse oximetry 2020-09-17 15:52:00 97 /min [facility] Systolic blood pressure 2020-09-17 15:52:00 138 mm[Hg] [facility] Diastolic blood pressure 2020-09-17 15:52:00 94 mm[Hg] [facility] Heart rate 2020-09-17 15:52:00 98 /min [facility] Body temperature 2020-09-17 15:52:00 36.94 Latanya [facility] Respiratory rate 2020-09-17 15:52:00 20 /min [facility] Body weight 2020-09-17 15:52:00 95.255 kg [facility] BMI 2020-09-17 15:52:00 38.41 kg/m2 [facility] Oxygen saturation in Arterial blood by Pulse oximetry 2020-09-17 15:52:00 97 /min [facility] Systolic blood pressure 2020-09-07 06:35:00 123 mm[Hg] [facility] Diastolic blood pressure 2020-09-07 06:35:00 56 mm[Hg] [facility] Heart rate 2020-09-07 06:35:00 97 /min [facility] Body temperature 2020-09-07 06:35:00 36.28 Latanya [facility] Respiratory rate 2020-09-07 06:35:00 18 /min [facility] Body weight 2020-09-07 06:35:00 99.791 kg [facility] BMI 2020-09-07 06:35:00 40.24 kg/m2 [facility] Oxygen saturation in Arterial blood by Pulse oximetry 2020-09-07 06:35:00 98 /min [facility] Systolic blood pressure 2020-09-07 06:35:00 123 mm[Hg] [facility] Diastolic blood pressure 2020-09-07 06:35:00 56 mm[Hg] [facility] Heart rate 2020-09-07 06:35:00 97 /min [facility] Body temperature 2020-09-07 06:35:00 36.28 Latanya [facility] Respiratory rate 2020-09-07 06:35:00 18 /min [facility] Body weight 2020-09-07 06:35:00 99.791 kg [facility] BMI 2020-09-07 06:35:00 40.24 kg/m2 [facility] Oxygen saturation in Arterial blood by Pulse oximetry 2020-09-07 06:35:00 98 /min [facility] Systolic blood pressure 2020-08-28 09:00:00 132 mm[Hg] [facility] Diastolic blood pressure 2020-08-28 09:00:00 87 mm[Hg] [facility] Heart rate 2020-08-28 09:00:00 90 /min [facility] Respiratory rate 2020-08-28 09:00:00 20 /min [facility] Oxygen saturation in Arterial blood by Pulse oximetry 2020-08-28 09:00:00 97 /min [facility] Body temperature 2020-08-28 07:59:00 36.72 Latanya [facility] Body height 2020-08-28 07:59:00 157.5 cm [facility] Body weight 2020-08-28 07:59:00 99.791 kg [facility] BMI 2020-08-28 07:59:00 40.24 kg/m2 [facility] Systolic blood pressure 2020-08-28 09:00:00 132 mm[Hg] [facility] Diastolic blood pressure 2020-08-28 09:00:00 87 mm[Hg] [facility] Heart rate 2020-08-28 09:00:00 90 /min [facility] Respiratory rate 2020-08-28 09:00:00 20 /min [facility] Oxygen saturation in Arterial blood by Pulse oximetry 2020-08-28 09:00:00 97 /min [facility] Body temperature 2020-08-28 07:59:00 36.72 Latanya [facility] Body height 2020-08-28 07:59:00 157.5 cm [facility] Body weight 2020-08-28 07:59:00 99.791 kg [facility] BMI 2020-08-28 07:59:00 40.24 kg/m2 [facility] Systolic blood pressure 2020-08-14 19:40:00 135 mm[Hg] [facility] Diastolic blood pressure 2020-08-14 19:40:00 100 mm[Hg] [facility] Heart rate 2020-08-14 19:40:00 68 /min [facility] Body temperature 2020-08-14 19:40:00 37.11 Latanya [facility] Respiratory rate 2020-08-14 19:40:00 19 /min [facility] Oxygen saturation in Arterial blood by Pulse oximetry 2020-08-14 19:40:00 99 /min [facility] Body height 2020-08-14 17:41:00 157.5 cm [facility] Body weight 2020-08-14 17:41:00 99.791 kg [facility] BMI 2020-08-14 17:41:00 40.24 kg/m2 [facility] Systolic blood pressure 2020-08-14 19:40:00 135 mm[Hg] [facility] Diastolic blood pressure 2020-08-14 19:40:00 100 mm[Hg] [facility] Heart rate 2020-08-14 19:40:00 68 /min [facility] Body temperature 2020-08-14 19:40:00 37.11 Latanya [facility] Respiratory rate 2020-08-14 19:40:00 19 /min [facility] Oxygen saturation in Arterial blood by Pulse oximetry 2020-08-14 19:40:00 99 /min [facility] Body height 2020-08-14 17:41:00 157.5 cm [facility] Body weight 2020-08-14 17:41:00 99.791 kg [facility] BMI 2020-08-14 17:41:00 40.24 kg/m2 [facility] Systolic blood pressure 2020-08-11 04:00:00 106 mm[Hg] [facility] Diastolic blood pressure 2020-08-11 04:00:00 92 mm[Hg] [facility] Heart rate 2020-08-11 04:00:00 90 /min [facility] Respiratory rate 2020-08-11 04:00:00 16 /min [facility] Oxygen saturation in Arterial blood by Pulse oximetry 2020-08-11 04:00:00 99 /min [facility] Body temperature 2020-08-11 03:12:56 37.72 Latanya [facility] Body height 2020-08-11 00:19:00 157.5 cm [facility] Body weight 2020-08-11 00:19:00 99.791 kg [facility] BMI 2020-08-11 00:19:00 40.24 kg/m2 [facility] Systolic blood pressure 2020-08-11 04:00:00 106 mm[Hg] [facility] Diastolic blood pressure 2020-08-11 04:00:00 92 mm[Hg] [facility] Heart rate 2020-08-11 04:00:00 90 /min [facility] Respiratory rate 2020-08-11 04:00:00 16 /min [facility] Oxygen saturation in Arterial blood by Pulse oximetry 2020-08-11 04:00:00 99 /min [facility] Body temperature 2020-08-11 03:12:56 37.72 Latanya [facility] Body height 2020-08-11 00:19:00 157.5 cm [facility] Body weight 2020-08-11 00:19:00 99.791 kg [facility] BMI 2020-08-11 00:19:00 40.24 kg/m2 [facility] Systolic blood pressure 2020-08-07 13:16:00 100 mm[Hg] [facility] Diastolic blood pressure 2020-08-07 13:16:00 69 mm[Hg] [facility] Heart rate 2020-08-07 13:16:00 99 /min [facility] Body temperature 2020-08-07 13:16:00 36.67 Latanya [facility] Respiratory rate 2020-08-07 13:16:00 18 /min [facility] Body weight 2020-08-07 13:16:00 95.255 kg [facility] BMI 2020-08-07 13:16:00 38.41 kg/m2 [facility] Oxygen saturation in Arterial blood by Pulse oximetry 2020-08-07 13:16:00 99 /min [facility] Systolic blood pressure 2020-08-07 13:16:00 100 mm[Hg] [facility] Diastolic blood pressure 2020-08-07 13:16:00 69 mm[Hg] [facility] Heart rate 2020-08-07 13:16:00 99 /min [facility] Body temperature 2020-08-07 13:16:00 36.67 Latanya [facility] Respiratory rate 2020-08-07 13:16:00 18 /min [facility] Body weight 2020-08-07 13:16:00 95.255 kg [facility] BMI 2020-08-07 13:16:00 38.41 kg/m2 [facility] Oxygen saturation in Arterial blood by Pulse oximetry 2020-08-07 13:16:00 99 /min [facility] Systolic blood pressure 2020-07-01 02:00:00 136 mm[Hg] [facility] Diastolic blood pressure 2020-07-01 02:00:00 85 mm[Hg] [facility] Heart rate 2020-07-01 02:00:00 73 /min [facility] Respiratory rate 2020-07-01 02:00:00 20 /min [facility] Oxygen saturation in Arterial blood by Pulse oximetry 2020-07-01 02:00:00 97 /min [facility] Body temperature 2020-06-30 23:36:00 36.56 Latanya [facility] Body height 2020-06-30 23:36:00 157.5 cm [facility] Body weight 2020-06-30 23:36:00 95.255 kg [facility] BMI 2020-06-30 23:36:00 38.41 kg/m2 [facility] Systolic blood pressure 2020-07-01 02:00:00 136 mm[Hg] [facility] Diastolic blood pressure 2020-07-01 02:00:00 85 mm[Hg] [facility] Heart rate 2020-07-01 02:00:00 73 /min [facility] Respiratory rate 2020-07-01 02:00:00 20 /min [facility] Oxygen saturation in Arterial blood by Pulse oximetry 2020-07-01 02:00:00 97 /min [facility] Body temperature 2020-06-30 23:36:00 36.56 Latanya [facility] Body height 2020-06-30 23:36:00 157.5 cm [facility] Body weight 2020-06-30 23:36:00 95.255 kg [facility] BMI 2020-06-30 23:36:00 38.41 kg/m2 [facility] Systolic blood pressure 2020-06-28 21:57:00 151 mm[Hg] [facility] Diastolic blood pressure 2020-06-28 21:57:00 88 mm[Hg] [facility] Heart rate 2020-06-28 21:57:00 94 /min [facility] Body temperature 2020-06-28 21:57:00 37.78 Latanya [facility] Respiratory rate 2020-06-28 21:57:00 16 /min [facility] Body height 2020-06-28 21:57:00 157.5 cm [facility] Body weight 2020-06-28 21:57:00 95.255 kg [facility] BMI 2020-06-28 21:57:00 38.41 kg/m2 [facility] Oxygen saturation in Arterial blood by Pulse oximetry 2020-06-28 21:57:00 96 /min [facility] Systolic blood pressure 2020-06-28 21:57:00 151 mm[Hg] [facility] Diastolic blood pressure 2020-06-28 21:57:00 88 mm[Hg] [facility] Heart rate 2020-06-28 21:57:00 94 /min [facility] Body temperature 2020-06-28 21:57:00 37.78 Latanya [facility] Respiratory rate 2020-06-28 21:57:00 16 /min [facility] Body height 2020-06-28 21:57:00 157.5 cm [facility] Body weight 2020-06-28 21:57:00 95.255 kg [facility] BMI 2020-06-28 21:57:00 38.41 kg/m2 [facility] Oxygen saturation in Arterial blood by Pulse oximetry 2020-06-28 21:57:00 96 /min [facility] Systolic blood pressure 2020-06-13 03:40:00 122 mm[Hg] [facility] Diastolic blood pressure 2020-06-13 03:40:00 78 mm[Hg] [facility] Heart rate 2020-06-13 03:40:00 90 /min [facility] Respiratory rate 2020-06-13 03:40:00 18 /min [facility] Oxygen saturation in Arterial blood by Pulse oximetry 2020-06-13 03:40:00 94 /min [facility] Body temperature 2020-06-12 23:39:00 37.22 Latanya [facility] Body weight 2020-06-12 23:39:00 97.07 kg [facility] BMI 2020-06-12 23:39:00 39.14 kg/m2 [facility] Systolic blood pressure 2020-06-13 03:40:00 122 mm[Hg] [facility] Diastolic blood pressure 2020-06-13 03:40:00 78 mm[Hg] [facility] Heart rate 2020-06-13 03:40:00 90 /min [facility] Respiratory rate 2020-06-13 03:40:00 18 /min [facility] Oxygen saturation in Arterial blood by Pulse oximetry 2020-06-13 03:40:00 94 /min [facility] Body temperature 2020-06-12 23:39:00 37.22 Latanya [facility] Body weight 2020-06-12 23:39:00 97.07 kg [facility] BMI 2020-06-12 23:39:00 39.14 kg/m2 [facility] Heart rate 2020-05-17 00:40:00 82 /min [facility] Respiratory rate 2020-05-17 00:40:00 18 /min [facility] Oxygen saturation in Arterial blood by Pulse oximetry 2020-05-17 00:40:00 95 /min [facility] Systolic blood pressure 2020-05-17 00:00:00 137 mm[Hg] [facility] Diastolic blood pressure 2020-05-17 00:00:00 93 mm[Hg] [facility] Body temperature 2020-05-16 23:17:00 37.61 Latanya [facility] Body weight 2020-05-16 23:17:00 97.07 kg [facility] BMI 2020-05-16 23:17:00 39.14 kg/m2 [facility] [facility] Heart rate 2020-05-17 00:40:00 82 /min [facility] Respiratory rate 2020-05-17 00:40:00 18 /min [facility] Oxygen saturation in Arterial blood by Pulse oximetry 2020-05-17 00:40:00 95 /min [facility] Systolic blood pressure 2020-05-17 00:00:00 137 mm[Hg] [facility] Diastolic blood pressure 2020-05-17 00:00:00 93 mm[Hg] [facility] Body temperature 2020-05-16 23:17:00 37.61 Latanya [facility] Body weight 2020-05-16 23:17:00 97.07 kg [facility] BMI 2020-05-16 23:17:00 39.14 kg/m2 [facility] Systolic blood pressure 2020-05-15 08:50:00 131 mm[Hg] [facility] Diastolic blood pressure 2020-05-15 08:50:00 80 mm[Hg] [facility] Heart rate 2020-05-15 08:50:00 70 /min [facility] Respiratory rate 2020-05-15 08:50:00 18 /min [facility] Oxygen saturation in Arterial blood by Pulse oximetry 2020-05-15 08:50:00 97 /min [facility] Body temperature 2020-05-15 05:29:00 36.44 Latanya [facility] Body height 2020-05-15 05:29:00 157.5 cm [facility] Body weight 2020-05-15 05:29:00 97.07 kg Simultaneous filing. User may not have seen previous data. [facility] BMI 2020-05-15 05:29:00 39.14 kg/m2 [facility] Systolic blood pressure 2020-05-15 08:50:00 131 mm[Hg] [facility] Diastolic blood pressure 2020-05-15 08:50:00 80 mm[Hg] [facility] Heart rate 2020-05-15 08:50:00 70 /min [facility] Respiratory rate 2020-05-15 08:50:00 18 /min [facility] Oxygen saturation in Arterial blood by Pulse oximetry 2020-05-15 08:50:00 97 /min [facility] Body temperature 2020-05-15 05:29:00 36.44 Latanya [facility] Body height 2020-05-15 05:29:00 157.5 cm [facility] Body weight 2020-05-15 05:29:00 97.07 kg Simultaneous filing. User may not have seen previous data. [facility] BMI 2020-05-15 05:29:00 39.14 kg/m2 [facility] Procedures Procedure Date / Time Performed Performing Clinician Source URINE DRUG (IMMUNOASSAY) - COMPREHENSIVE DRUG SCREEN 2024-07-19 06:11:00 Saleem Edward [facility] URINALYSIS 2024-07-19 06:11:00 Saleem Edwadr [facility] CT CHEST PULMONARY ANGIOGRAM 2024-07-19 05:46:40 Saleem Edward [facility] MAGNESIUM 2024-07-19 05:08:00 Saleem Edward [facility] TROPONIN I 2024-07-19 05:08:00 Saleem Edward Eleni [facility] COMP. METABOLIC PANEL ([id number]) 2024-07-19 05:08:00 Saleem Edward [facility] CBC WITH DIFF 2024-07-19 05:08:00 Saleem Edward [facility] INFLUENZA A/B RSV COVID NAAT 2024-07-19 05:08:00 Saleem Edward [facility] N-TERMINAL PRO-BNP 2024-07-19 05:08:00 Saleem Edward [facility] CT ABDOMEN PELVIS W CONTRAST 2024-07-04 05:47:25 Sandy Garcia [facility] POCT TEST 2024-07-04 05:33:00 Ross Garcia [facility] LIPASE 2024-07-04 03:23:00 Sandy Garcia [facility] COMP. METABOLIC PANEL ([id number]) 2024-07-04 03:23[facility] 2024-07-04 03:23:00 Jose [facility] URINALYSIS 2024-07-04 03:23:00 Sandy Garcia [facility] CT ABDOMEN PELVIS W CONTRAST 2024-06-15 05:33:59 [facility] 2024-06-15 04:18:00 Sandy Garcia [facility] LIPASE 2024-06-15 04:14:00 Sandy Garcia [facility] TEST, SERUM 2024-06-15 04:14:00 Laney Garcia [facility] TROPONIN I 2024-06-15 04:14:00 Jose [facility] COMP. METABOLIC PANEL ([id number]) 2024-06-15 04:14:00 [facility]FF 2024-06-15 04:14:00 Jose [facility] TROPONIN I 2024-06-07 07:19:00 Olivia Garcia [facility] XR CHEST 1 VW 2024-06-07 05:38:37 Olivia Garcia [facility] POCT TEST 2024-06-07 05:19:00 Olivia Garcia [facility] URINE DRUG (IMMUNOASSAY) - COMPREHENSIVE DRUG SCREEN 2024-06-07 05:18:00 Olivia Garcia [facility] TROPONIN I 2024-06-07 04:10:00 Olivia Garcia [facility] COMP. METABOLIC PANEL ([id number]) 2024-06-07 04:10:00 Olivia Garcia [facility] CBC WITH DIFF 2024-06-07 04:10:00 Olivia Garcia [facility] CT HEAD WO CONTRAST 2024-05-19 18:22:43 Annalise Wright [facility] XR ELBOW <3 VW RIGHT 2024-05-18 02:32:12 Alesha Barrera [facility] XR FOREARM 2 VW RIGHT 2024-05-18 02:32:12 Alesha Moralez [facility] XR HAND 3+ VW RIGHT 2024-05-18 02:32:12 Alesha Casanova [facility] CT CERVICAL SPINE WO CONTRAST 2024-05-18 02:11:45 Alesha Roy [facility] CT MAXILLOFACIAL/MANDIBLE WO CONTRAST 2024-05-18 02:11:45 Alesha Roy [facility] POCT TEST 2024-05-08 02:00:00 Saleem Edward [facility] LIPASE 2024-05-08 00:31:00 [facility] MAGNESIUM 2024-05-08 00:31:00 Saleem Edward [facility] TROPONIN I 2024-05-08 00:31:00 [facility] COMP. METABOLIC PANEL ([id number]) 2024-05-08 00:31:00 Saleem Edward [facility] CBC WITH DIFF 2024-05-08 00:31:00 Saleem Edward [facility] URINALYSIS 2024-05-08 00:31:00 [facility] CT ABDOMEN PELVIS WO CONTRAST 2024-04-08 23:45:15 Leigh Rojo [facility] POCT TEST 2024-04-08 23:01:00 Judy Rojo [facility] LIPASE 2024-04-08 22:47:00 eLigh [facility] COMP. METABOLIC PANEL ([id number]) 2024-04-08 22:47:00 Leigh Rojo [facility] CBC WITH DIFF 2024-04-08 22:47:00 Leigh Rojo [facility] URINALYSIS 2024-04-08 22:47:00 Leigh Rojo [facility] CT ABDOMEN PELVIS W CONTRAST 2023-10-11 04:08:24 Olivia Garcia [facility] POCT TEST 2023-10-11 03:40:00 Olivia Garcia [facility] LIPASE 2023-10-11 03:25[facility]IC [facility]EL ([id number]) 2023-10-11 03:25:00 Olivia Garcia [facility] CBC WITH DIFF 2023-10-11 03:25:00 Olivia Garcia [facility] URINALYSIS 2023-10-11 03:25:00 Olivia [facility] XR KUB 2023-07-02 03:34:07 Roberto Richadrs [facility] POCT TEST 2023-07-02 02:30:00 Alberta Richards [facility] LIPASE 2023-07-02 02:05:00 Roberto Richards [facility] COMP. METABOLIC PANEL ([id number]) 2023-07-02 02:05:00 Roberto Richards [facility] CBC WITH DIFF 2023-07-02 02:05:00 Roberto Richards [facility] URINALYSIS 2023-07-02 02:05:00 Roberto Richards [facility] URINE DRUG (IMMUNOASSAY) - COMPREHENSIVE DRUG SCREEN W/O REFLEX 2023-07-02 02:05:00 Roberto Richards [facility] CONSENT/REFUSAL FOR DIAGNOSIS AND TREATMENT 2023-07-02 01:43:05 Doctor Unassigned, [place] [facility] LIPASE 2023-05-09 22:47:00 Nar[facility] COMP. METABOLIC PANEL ([id number]) 2023-05-09 22:47:00 Narayan Narvaez [facility] CBC WITH DIFF 2023-05-09 22:47:00 Narayan Narvaez [facility] CONSENT/REFUSAL FOR DIAGNOSIS AND TREATMENT 2023-05-09 22:32:48 Doctor Unassigned, [place] [facility] CT ABDOMEN PELVIS W CONTRAST 2023-04-30 23:47:56 Narayan Narvaez [facility] COMP. METABOLIC PANEL ([id number]) 2023-04-30 23:08:00 Narayan Narvaez [facility] CBC WITH DIFF 2023-04-30 23:08:00 Narayan Narvaez [facility] POCT TEST 2023-04-30 22:59:00 Jaquan Narvaez [facility] URINALYSIS 2023-04-30 22:57[facility]00 [facility] FOR [facility]AGNOSIS AND TREATMENT 2023-04-30 22:14:38 Doctor Unassigned, [place] [facility] XR ABDOMEN ACUTE SERIES 2023-04-17 02:13:44 Do minal Richards [facility] POCT TEST 2023-04-17 02:11:00 Alberta Richards [facility] LIPASE 2023-04-17 02:04:00 Roberto [facility] TROPONIN I 2023-04-17 02:04:00 Roberto [facility] COMP. METABOLIC PANEL ([id number]) 2023-04-17 02:04:00 Roberto Richards [facility] CBC WITH DIFF 2023-04-17 02:04:00 Roberto Richards [facility] PROTHROMBIN TIME / INR 2023-04-17 02:04:00 Jalen Richards [facility] ACTIVATED PARTIAL THRMPLAS MARCIO 2023-04-17 02:04:00 Roberto Richards [facility] URINALYSIS 2023-04-17 02:04:00 Roberto Richards [facility] N-TERMINAL PRO-BNP 2023-04-17 02:04:00 Roberto Richards [facility] URINE DRUG (IMMUNOASSAY) - COMPREHENSIVE DRUG SCREEN W/O REFLEX 2023-04-17 02:04:00 Roberto Richards [facility] CONSENT/REFUSAL FOR DIAGNOSIS AND TREATMENT 2023-04-17 01:22:36 Doctor Unassigned, [place] [facility] URINALYSIS 2023-04-09 01:02:00 Saleem Edward [facility] LIPASE 2023-04-08 23:15:00 Saleem Edwarde [facility] MAGNESIUM 2023-04-08 23:15:00 [facility] TROPONIN I 2023-04-08 23:15:00 Sale[facility] COMP. METABOLIC PANEL ([id number]) 2023-04-08 23:15:00 Saleem Edward Eleni [facility] CBC WITH DIFF 2023-04-08 23:15:00 Saleem Edward [facility] CONSENT/REFUSAL FOR DIAGNOSIS AND TREATMENT 2023-04-08 21:57:42 Doctor Unassigned, [place] [facility] CT ABDOMEN PELVIS W CONTRAST 2023-03-10 03:38:58 Roberto Richards [facility] POCT TEST 2023-03-10 02:51:00 Alberta Richards [facility] URINALYSIS 2023-03-10 01:49:00 Roberto Richards [facility] LIPASE 2023-03-10 01:46:00 Roberto [facility] COMP. METABOLIC PANEL ([id number]) 2023-03-10 01:46:00 Roberto Richards [facility] CBC WITH DIFF 2023-03-10 01:46:00 Roberto Richards [facility] CONSENT/REFUSAL FOR DIAGNOSIS AND TREATMENT 2023-03-10 01:36:24 Doctor Unassigned, [place] [facility] CONSENT/REFUSAL FOR DIAGNOSIS AND TREATMENT 2023-03-10 01:14:40 Doctor Unassigned, [place] [facility] CT ABDOMEN PELVIS W CONTRAST 2023-03-02 05:16:35 Olivia Garcia [facility] POCT TEST 2023-03-02 03:26:00 Olivia Garcia [facility] LIPASE 2023-03-02 03:23:00 Olivia Garcia [facility] COMP. METABOLIC PANEL ([id number]) 2023-03-02 03:23:00 Olivia Garcia [facility] CBC WITH DIFF 2023-03-02 03:23:00 Olivia Garcia [facility] URINALYSIS 2023-03-02 03:23:00 Olivia Garcia [facility] CONSENT/REFUSAL FOR DIAGNOSIS AND TREATMENT 2023-03-02 00:22:44 Doctor Unassigned, [place] [facility] CONSENT/REFUSAL FOR DIAGNOSIS AND TREATMENT 2023-02-18 03:44:46 Doctor Unassigned, [place] [facility] LIPASE 2023-02-17 09:28:00 Kylah [facility] HEPATIC FUNCTION PANEL ([id number]) (ALB,T.PRO,BILI T,BU/BC,ALT,AST,ALK PHOS) 2023-02-17 09:28:[address] [facility] BASIC METABOLIC PANEL (NA, K, CL, CO2, GLUCOSE, BUN, CREATININE, CA) 2023-02-17 09:28:00 [facility] 2023-02-17 09:28:00 Jesús Montero [facility] LIPASE 2023-02-16 18:24:00 [facility] FUN[facility] ([id number]) (ALB,T.PRO,BILI T,BU/BC,ALT,AST,ALK PHOS) 2023-02-16 18:24:00 [facility]IC [facility]OLIC PANEL (NA, K, CL, CO2, GLUCOSE, BUN, CREATININE, CA) 2023-02-16 18:24:[address] [facility] CBC WITH DIFF 2023-02-16 18:23:00 Kylah Jesús [facility] CT ABDOMEN PELVIS W CONTRAST 2023-02-15 23:29:00 Leeanne Wise [facility] LIPASE 2023-02-15 21:45:00 Leeanne Wise [facility] COMP. METABOLIC PANEL ([id number]) 2023-02-15 21:45:00 Leeanne Wise [facility] CBC WITH DIFF 2023-02-15 21:45:00 Leeanne Wise [facility] D-DIMER 2023-02-15 19:55:00 Leeanne Wise [facility] URINALYSIS 2023-02-15 19:50:00 Leeanne Wise [facility] RAPID INFLUENZA A/B 2023-02-15 19:50:00 Leeanne Wise [facility] COVID-19 (ID NOW RAPID TESTING) 2023-02-15 19:50:00 Leeanne Wise [facility] XR CHEST 1 VW 2023-02-15 19:38:00 Leeanne Wise [facility] ASSIGNMENT OF BENEFITS 2023-02-15 19:26:58 Docto r Unassigned, [place] [facility] HB ECG ROUTINE & RHYTHM STRIP 2023-02-15 19:07:40 Leeanne Wise [facility] NOTICE OF PRIVACY PRACTICES 2023-02-15 18:24:07 Doctor Unassigned, [place] [facility] CONSENT/REFUSAL FOR DIAGNOSIS AND TREATMENT 2023-02-15 18:23:04 Doctor Unassigned, [place] [facility] TROPONIN I 2022-01-10 00:32:00 Melida Longoria [facility] TROPONIN I 2022-01-09 22:17:00 Melida Longoria [facility] BASIC METABOLIC PANEL (NA, K, CL, CO2, GLUCOSE, BUN, CREATININE, CA) 2022-01-09 22:17:00 Melida Longoria [facility] CBC WITH DIFF 2022-01-09 22:17:00 [facility] N-TERMINAL PRO-BNP 2022-01-09 22:17:00 Melida Longoria [facility] XR CHEST 1 VW 2022-01-09 22:11:00 [facility] CONSENT/REFUSAL FOR DIAGNOSIS AND TREATMENT 2022-01-09 21:34:15 Doctor Unassigned, [place] [facility] TROPONIN I 2021-12-14 05:39:00 Wil Mcqueen [facility] XR CHEST 1 VW 2021-12-14 04:39:00 Wil Mcqueen [facility] POCT TEST 2021-12-14 04:20:00 Wil Mcqueen [facility] URINALYSIS 2021-12-14 03:57:00 Wil Mcqueen [facility] LIPASE 2021-12-14 03:43:00 Wil Mcqueen [facility] TROPONIN I 2021-12-14 03:43:00 Wil Mcqueen [facility] FREE T4 2021-12-14 03:43:00 Wil Mcqueen [facility] THYROID STIMULATING HORMONE 2021-12-14 03:43:00 Wil Mcqueen [facility] COMP. METABOLIC PANEL ([id number]) 2021-12-14 03:43:00 Wil Mcqueen [facility] CBC WITH DIFF 2021-12-14 03:43:00 Wil Mcqueen [facility] FREE T3 2021-12-14 03:43:00 [facility] CONSENT/REFUSAL FOR DIAGNOSIS AND TREATMENT 2021-12-14 02:58:21 Doctor Unassigned, [place] [facility] TROPONIN I 2021-11-12 03:04:00 Dee Wang [facility] POCT TEST 2021-11-12 02:56:00 Tra Wang [facility] URINE DRUG (IMMUNOASSAY) - COMPREHENSIVE DRUG SCREEN 2021-11-12 02:30:00 Dee Wang [facility] URINALYSIS 2021-11-12 02:30:00 Dee Wang [facility] XR CHEST 2 VW 2021-11-12 01:45:03 Dee Wang [facility] LIPASE 2021-11-12 01:34:00 Dee Wang [facility] TROPONIN I 2021-11-12 01:34:00 Dee Wang [facility] COMP. METABOLIC PANEL ([id number]) 2021-11-12 01:34:00 Dee Wang [facility] CBC WITH DIFF 2021-11-12 01:34:00 Dee Wang [facility] N-TERMINAL PRO-BNP 2021-11-12 01:34:00 Mckinley Wang [facility] CONSENT/REFUSAL FOR DIAGNOSIS AND TREATMENT 2021-11-12 00:36:34 Doctor Unassigned, [place] [facility] CT ABDOMEN PELVIS W CONTRAST 2021-09-12 02:49:43 Dee Wang [facility] COVID-19 (ID NOW RAPID TESTING) 2021-09-12 02:23:00 Dee Wang [facility] POCT TEST 2021-09-12 02:21:00 Tra Wang [facility] POCT TEST 2021-09-12 01:45:00 Olivia Garcia [facility] URINALYSIS 2021-09-12 01:43:00 Olivia Garcia [facility] LIPASE 2021-09-12 01:40:00 Olivia Garcia [facility] COMP. METABOLIC PANEL ([id number]) 2021-09-12 01:40:00 Olivia Garcia [facility] CBC WITH DIFF 2021-09-12 01:40:00 Olivia Garcia [facility] CONSENT/REFUSAL FOR DIAGNOSIS AND TREATMENT 2021-09-12 01:26:55 Doctor Unassigned, [place] [facility] XR LUMBAR SPINE 1 VW 2021-08-15 07:03:00 Angeles Garcia i [facility] URINALYSIS 2021-08-15 06:35:00 Olivia Garcia [facility] POCT TEST 2021-08-15 06:35:00 Olivia Garcia [facility] NOTICE OF PRIVACY PRACTICES 2021-08-15 06:01:56 Doctor Unassigned, [place] [facility] CONSENT/REFUSAL FOR DIAGNOSIS AND TREATMENT 2021-08-15 05:25:54 Doctor Unassigned, [place] [facility] TROPONIN I 2021-05-28 07:50:00 Cem Choi [facility] D-DIMER 2021-05-28 07:05:00 Cem Choi [facility] XR CHEST 2 VW 2021-05-28 05:46:00 Cem Choi [facility] POCT TEST 2021-05-28 05:32:00 Cem Choi [facility] LIPASE 2021-05-28 05:29:00 Cem Choi [facility] TROPONIN I 2021-05-28 05:29:00 eCm Choi [facility] COMP. METABOLIC PANEL ([id number]) 2021-05-28 05:29:00 Cem Choi [facility] CBC WITH DIFF 2021-05-28 05:29:00 Cem Choi [facility] N-TERMINAL PRO-BNP 2021-05-28 05:29:00 Cem Choi [facility] COVID-19 (ID NOW RAPID TESTING) 2021-05-28 05:29:00 Cem Choi [facility] TROPONIN I 2021-04-08 10:01:[address] [facility] BASIC METABOLIC PANEL (NA, K, CL, CO2, GLUCOSE, BUN, CREATININE, CA) 2021-04-08 10:01:00 Brittni Romero [facility] CBC WITH DIFF 2021-04-08 10:01:00 Brittni Romero [facility] TROPONIN I 2021-04-08 04:12:[address] [facility] XR CHEST 1 VW 2021-04-07 22:33:33 Roberto Richards [facility] LIPASE 2021-04-07 21:52:00 [facility] MAGNESIUM 2021-04-07 21:52:00 Brittni Romero [facility] TROPONIN I 2021-04-07 21:52:00 Roberto Richards [facility] THYROID STIMULATING HORMONE 2021-04-07 21:52:00 Brittni Romero [facility] COMP. METABOLIC PANEL ([id number]) 2021-04-07 21:52:00 Roberto Richards [facility] LIPID PANEL ([id number])(TOTAL CHOLESTEROL, TRIGLYCERIDES, HDL) 2021-04-07 21:52:00 Brittni Romero [facility] CBC WITH DIFF 2021-04-07 21:52:00 Roberto Richards [facility] GLYCOSYLATED HEMOGLOBIN (A1C) 2021-04-07 21:52:00 Brittni Romero [facility] PROTHROMBIN TIME / INR 2021-04-07 21:52:00 Jalen Richards [facility] ACTIVATED PARTIAL THRMPLAS MARCIO 2021-04-07 21:52[facility]00 [facility] 2021-04-07 21:52:00 [facility]-19 (ID NOW RAPID TESTING) 2021-04-07 21:51:00 Roberto Richards [facility] HB ECG ROUTINE & RHYTHM STRIP 2021-04-07 21:38:41 [facility]SENT/REFUSAL FOR DIAGNOSIS AND TREATMENT 2021-04-07 21:17:47 Doctor Unassigned, [place] [facility] CT ABDOMEN PELVIS WO CONTRAST 2021-01-12 08:10:17 Narayan Narvaez [facility] POCT TEST 2021-01-12 08:02:00 Jaquan Narvaez [facility] URINALYSIS 2021-01-12 07:58:00 Narayan Narvaez [facility] COMP. METABOLIC PANEL ([id number]) 2021-01-12 07:56:00 Narayan Narvaez [facility] CBC WITH DIFF 2021-01-12 07:56:00 Narayan Narvaez [facility] TROPONIN I 2020-12-11 00:47:[address] [facility] XR CHEST 1 VW 2020-12-10 22:40:57 Bal Hassan [facility] POCT TEST 2020-12-10 22:32:00 Suzanna Hassan [facility] URINALYSIS 2020-12-10 22:30[facility]-12-10 22:24:[address] [facility] TROPONIN I 2020-12-10 22:24:[address] [facility] HEPATIC FUNCTION PANEL ([id number]) (ALB,T.PRO,BILI T,BU/BC,ALT,AST,ALK PHOS) 2020-12-10 22:24:00 Mo [facility] BASIC METABOLIC PANEL (NA, K, CL, CO2, GLUCOSE, BUN, CREATININE, CA) 2020-12-10 22:24:00 Mo [facility] CBC WITH DIFF 2020-12-10 22:24:00 Bal Hassan [facility] D-DIMER 2020-12-10 22:24:[address] [facility] N-TERMINAL PRO-BNP 2020-12-10 22:24:00 Mirtha Hassan [facility] POCT TEST 2020-12-04 21:18:00 Tremaine Becerra [facility] URINALYSIS 2020-12-04 21:17:00 Tremaine Becerra [facility] LIPASE 2020-12-04 20:20:00 Hernan [facility] TROPONIN I 2020-12-04 20:20:00 Hernan [facility] HEPATIC FUNCTION PANEL ([id number]) (ALB,T.PRO,BILI T,BU/BC,ALT,AST,ALK PHOS) 2020-12-04 20:20:00 [place] [facility] [place] [facility] BAS[facility] METABOLIC PANEL (NA, K, CL, CO2, GLUCOSE, BUN, CREATININE, CA) 2020-12-04 20:20:00 [facility]FF 2020-12-04 20:20:00 [facility] XR CHEST 1 VW 2020-12-04 20:16:[address] [facility] XR ANKLE 3+ VW LEFT 2020-12-04 20:16:54 Hernan [facility] CONSENT/REFUSAL FOR DIAGNOSIS AND TREATMENT 2020-12-04 19:43:45 Doctor Unassigned, [place] [facility] XR CHEST 1 VW 2020-11-04 02:24:02 Olivia Garcia [facility] URINE DRUG (IMMUNOASSAY) - 4 ER PANEL 2020-11-04 02:19:00 Olivia Garcia [facility] URINALYSIS 2020-11-04 02:19:00 Olivia Garcia [facility] LIPASE 2020-11-04 02:16:00 [facility] TROPONIN I 2020-11-04 02:16:00 Olivia [facility] COMP. METABOLIC PANEL (93619) 2020-11-04 02:16:00 Olivia Garcia [facility] CBC WITH DIFF 2020-11-04 02:16:00 Olivia Garcia [facility] PROTHROMBIN TIME / INR 2020-11-04 02:16:00 Lucia Garcia [facility] ACTIVATED PARTIAL THRMPLAS MARCIO 2020-11-04 02:16:00 Olivia Garcia [facility] CONSENT/REFUSAL FOR DIAGNOSIS AND TREATMENT 2020-11-04 01:11:16 Doctor Unassigned, [place] [facility] XR CHEST 1 VW 2020-09-17 17:32:21 Leeanne Wise [facility] RAPID STREP SCREEN FOR GROUP A 2020-09-17 16:31:00 Leeanne Wise [facility] COVID-19 (ID NOW RAPID TESTING) 2020-09-17 16:31:00 Leeanne Wise [facility] NOTICE OF PRIVACY PRACTICES 2020-09-17 15:47:38 Doctor Unassigned, [place] [facility] CONSENT/REFUSAL FOR DIAGNOSIS AND TREATMENT 2020-09-17 15:47:07 Doctor Unassigned, [place] [facility] XR FOREARM 2 VW LEFT 2020-09-07 06:59:53 Saleem Edward [facility] XR HAND 3+ VW LEFT 2020-09-07 06:59:53 Saleem Edward [facility] NOTICE OF PRIVACY PRACTICES 2020-09-07 06:06:09 Doctor Unassigned, [place] [facility] CONSENT/REFUSAL FOR DIAGNOSIS AND TREATMENT 2020-09-07 06:03:10 Doctor Unassigned, [place] [facility] CT ABDOMEN PELVIS W CONTRAST 2020-08-28 09:16:08 Olivia Garcia [facility] POCT TEST 2020-08-28 08:45:00 Olivia Garcia [facility] URINALYSIS 2020-08-28 08:43:00 Olivai Garcia [facility] LIPASE 2020-08-28 08:09:00 [facility] METABOLIC PANEL (11073) 2020-08-28 08:09:00 Olivia Garcia [facility] CBC WITH DIFF 2020-08-28 08:09:00 [facility] VW 2020-08-14 18:10:03 [facility] [place] [facility] LIPASE 2020-08-14 17:58:00 [facility] [place] [facility] TROPONIN I 2020-08-14 17:58:00 [facility] [place] [facility] COMP. METABOLIC PANEL (95325) 2020-08-14 17:58:00 [place] [facility] CBC WITH DIFF 2020-08-14 17:58:00 [facility] [place] [facility] URINALYSIS 2020-08-14 17:58:00 [facility] [place] [facility] LACTIC ACID WHOLE BLOOD 2020-08-14 17:58:00 Sophie [place] [facility] ADC / LCC - DRUG SCREEN TRIAGE 2020-08-14 17:58:00 [place] [facility] CONSENT/REFUSAL FOR DIAGNOSIS AND TREATMENT 2020-08-14 17:33:16 Doctor Unassigned, [place] [facility] CT ABDOMEN PELVIS WO CONTRAST 2020-08-11 04:11:07 [place] [facility] XR CHEST 1 VW 2020-08-11 03:56:48 [facility] [place] [facility] POCT TEST 2020-08-11 03:10:00 [place] [facility] BLOOD CULTURE SCREEN 2020-08-11 02:01:00 [place] [facility] BLOOD CULTURE SCREEN 2020-08-11 01:45:00 [place] [facility] LIPASE 2020-08-11 01:45:00 [facility] [place] [facility] TROPONIN I 2020-08-11 01:45:00 [facility] [place] [facility] HEPATIC FUNCTION PANEL (58026) (ALB,T.PRO,BILI T,BU/BC,ALT,AST,ALK PHOS) 2020-08-11 01:45:00 [place] [facility] BASIC METABOLIC PANEL (NA, K, CL, CO2, GLUCOSE, BUN, CREATININE, CA) 2020-08-11 01:45:00 [place] [facility] CBC WITH DIFF 2020-08-11 01:45:00 [facility] [place] [facility] URINALYSIS 2020-08-11 01:45:00 Claudia, Katye R [facility] LACTIC ACID WHOLE BLOOD 2020-08-11 01:45:00 Sophie [place] [facility] COVID-19 (ID NOW RAPID TESTING) 2020-08-11 01:45:00 [place] [facility] CONSENT/REFUSAL FOR DIAGNOSIS AND TREATMENT 2020-08-11 00:12:54 Doctor Unassigned, [place] [facility] XR FOREARM 2 VW LEFT 2020-08-07 14:03:06 Unique Richards [facility] COVID-19 (ID NOW RAPID TESTING) 2020-08-07 13:35:00 Roberto Richards [facility] NOTICE OF PRIVACY PRACTICES 2020-08-07 13:13:25 Doctor Unassigned, [place] [facility] CONSENT/REFUSAL FOR DIAGNOSIS AND TREATMENT 2020-08-07 13:11:06 Doctor Unassigned, [place] [facility] CONSENT/REFUSAL FOR DIAGNOSIS AND TREATMENT 2020-08-07 13:10:57 Doctor Unassigned, [place] [facility] TROPONIN I 2020-07-01 02:03:00 Abdias Robertson [facility] POCT TEST 2020-07-01 00:51:00 Jessica [facility] URINALYSIS 2020-07-01 00:48:00 [facility] CBC WITH DIFF 2020-07-01 00:12:00 Abdias Robertson [facility] EXTRA TUBE LT. BLUE 2020-07-01 00:12:00 [facility] LIPASE 2020-07-01 00:09:00 Abdias Robertson [facility] TROPONIN I 2020-07-01 00:09:00 Jessica [facility] BASIC METABOLIC PANEL (NA, K, CL, CO2, GLUCOSE, BUN, CREATININE, CA) 2020-07-01 00:09:00 [facility] ADC,CLC OR LCC ONLY - INFLUENZA A & B DIRECT ANTIGEN 2020-07-01 00:09:00 Jessica [facility] N-TERMINAL PRO-BNP 2020-07-01 00:09:00 Abdias Robertson [facility] XR CHEST 1 VW 2020-07-01 00:07:07 [facility] OF PRIVACY PRACTICES 2020-06-30 23:27:46 Doctor Unassigned, [place] [facility] CT CERVICAL SPINE WO CONTRAST 2020-06-28 23:12:00 Narayan Narvaez [facility] CONSENT/REFUSAL FOR DIAGNOSIS AND TREATMENT 2020-06-28 21:52:44 Doctor Unassigned, [place] [facility] POCT TEST 2020-06-13 01:50:00 Leeanne Wise [facility] XR CHEST 1 VW 2020-06-13 01:18:17 Leeanne Wise [facility] URINALYSIS 2020-06-13 00:34:00 [facility] Kristin [facility] COVID-19 (ID NOW RAPID TESTING) 2020-06-13 00:34:00 Leeanne Wise [facility] LIPASE 2020-06-13 00:33:00 Leeanne Wise [facility] TROPONIN I 2020-06-13 00:33:00 Mehnaz Leeanne G [facility] HEPATIC FUNCTION PANEL (40634) (ALB,T.PRO,BILI T,BU/BC,ALT,AST,ALK PHOS) 2020-06-13 00:33:00 Leeanne Wise [facility] BASIC METABOLIC PANEL (NA, K, CL, CO2, GLUCOSE, BUN, CREATININE, CA) 2020-06-13 00:33:00 Leeanne Wise [facility] CBC WITH DIFF 2020-06-13 00:33:00 Leeanne Wise [facility] D-DIMER 2020-06-13 00:33:00 Leeanne Wise [facility] CONSENT/REFUSAL FOR DIAGNOSIS AND TREATMENT 2020-06-12 23:27:48 Doctor Unassigned, [place] [facility] COVID-19 (ID NOW RAPID TESTING) 2020-05-16 23:50:00 Bushra Rios [facility] LIPASE 2020-05-16 23:21:00 [facility] (74684) (ALB,T.PRO,BILI T,BU/BC,ALT,AST,ALK PHOS) 2020-05-16 23:21:00 Bushra Rios [facility] BASIC METABOLIC PANEL (NA, K, CL, CO2, GLUCOSE, BUN, CREATININE, CA) 2020-05-16 23:21:00 Bushra Rios [facility] CBC WITH DIFF 2020-05-16 23:21:00 [facility] ACETAMINOPHEN 2020-05-15 07:42:00 Roberto Richards [facility] CT ABDOMEN PELVIS W CONTRAST 2020-05-15 06:56:53 Roberto Richards [facility] CT HEAD WO CONTRAST 2020-05-15 06:56:27 Alberta Richards [facility] POCT TEST 2020-05-15 05:53:00 Alberta Richards [facility] LIPASE 2020-05-15 05:52:00 [facility] HEPATIC FUNCTION PANEL (25274) (ALB,T.PRO,BILI T,BU/BC,ALT,AST,ALK PHOS) 2020-05-15 05:52:00 Roberto Richards [facility] BASIC METABOLIC PANEL (NA, K, CL, CO2, GLUCOSE, BUN, CREATININE, CA) 2020-05-15 05:52:00 Roberto Richards [facility] ETHANOL 2020-05-15 05:52:00 Roberto Richards [facility] CBC WITH DIFF 2020-05-15 05:52:00 Roberto Richards [facility] PROTHROMBIN TIME / INR 2020-05-15 05:52:00 Jalen Richards [facility] ACTIVATED PARTIAL THRMPLAS MARCIO 2020-05-15 05:52:00 Roberto Richards [facility] URINALYSIS 2020-05-15 05:52:00 Roberto Richards [facility] ADC / LCC - DRUG SCREEN TRIAGE 2020-05-15 05:52:00 Roberto Richards [facility] NOTICE OF PRIVACY PRACTICES 2020-05-15 05:12:38 Doctor Unassigned, [place] [facility] CONSENT/REFUSAL FOR DIAGNOSIS AND TREATMENT 2020-05-15 05:12:26 Doctor Unassigned, [place] [facility] Encounters Start Date/Time End Date/Time Encounter Type Admission Type Attending [facility] Care Department Encounter ID Source 2024-09-15 11:15:00 2024-09-15 11:15:00 Outpatient KELLEE DORMAN [id number] [facility] 2024-09-15 10:45:00 2024-09-15 10:45:00 Outpatient KELLEE DORMAN [id number] [facility] 2024-09-15 10:15:00 2024-09-15 10:15:00 Outpatient KELLEE DORMAN [id number] [facility] 2024-08-20 16:45:00 2024-08-20 16:45:00 Outpatient JÚNIOR FARRELL [id number] [facility] 2024-08-18 10:00:00 2024-08-18 10:00:00 Outpatient JOANNE MONTES [id number] [facility] 2024-08-05 15:30:00 2024-08-05 15:30:00 Outpatient CONRADO SMITH [id number] [facility] 2024-08-03 00:00:00 2024-08-03 00:00:00 Outpatient JOANNE MONTES [id number] [facility] 2024-07-18 22:48:00 2024-07-19 01:24:00 Emergency X Saleem EDWARD K [facility] ERT [id number] [facility] 2024-07-18 22:48:00 2024-07-19 01:24:00 Emergency Saleem Edward [facility] 1.2.840.114 350.1.13.10 4.2.7.2.686 [id number] [facility] 2024-07-15 00:00:00 2024-07-15 00:00:00 Outpatient JOANNE MONTES [id number] [facility] 2024-07-10 00:00:00 2024-07-10 00:00:00 Outpatient JYOTIJOANNE KELLEE DORMAN [id number] [facility] 2024-07-09 00:00:00 2024-07-09 00:00:00 Outpatient RADIOLOGY, DEPT KELLEE DORMAN [id number] [facility] 2024-07-09 00:00:00 2024-07-09 00:00:00 Outpatient RADIOLOGY, DEPT KELLEE DORMAN [id number] [facility] 2024-07-07 00:00:00 2024-07-07 00:00:00 Outpatient MD KELLEE CHOI [id number] [facility] 2024-07-06 07:00:00 2024-07-06 07:00:00 Outpatient KELLEE DORMAN [id number] [facility] 2024-07-06 00:00:00 2024-07-06 00:00:00 Outpatient GISELLE OSORIO [id number] [facility] 2024-07-03 19:56:00 2024-07-04 01:32:00 Emergency X VINCENT, SHINTA VINCENT, SHINTA [facility] ERT [id number] [facility] 2024-07-03 19:56:00 2024-07-04 01:32:00 Emergency Vincent, Shinta [facility] 1.2.840.114 350.1.13.10 4.2.7.2.686 [id number] [facility] 2024-06-21 02:04:00 2024-06-21 02:59:00 Emergency X VINCENT, SHINTA VINCENT, SHINTA [facility] ERT [id number] [facility] 2024-06-21 02:04:00 2024-06-21 02:59:00 Emergency Vincent, Shinta [facility] 1.2.840.114 350.1.13.10 4.2.7.2.686 [id number] [facility] 2024-06-20 00:00:00 2024-06-20 00:00:00 Outpatient JOANNE MONTES [id number] [facility] 2024-06-18 00:00:00 2024-06-18 00:00:00 Outpatient GISELLE OSORIO [id number] [facility] 2024-06-17 15:30:00 2024-06-17 15:30:00 Outpatient KELLEE DORMAN [id number] [facility] 2024-06-14 21:28:00 2024-06-15 00:28:00 Emergency X KAELYN GARCIAKAELYN DAVISTA [facility] ERT [id number] [facility] 2024-06-14 21:28:00 2024-06-15 00:28:00 Emergency Sandy Garcia [facility] 1.2.840.114 350.1.13.10 4.2.7.2.686 [id number] [facility] 2024-06-06 21:56:00 2024-06-07 02:40:00 Emergency X TRACYPAULYCHUYOLIVIA WAKILI [facility] ERT [id number] [facility] 2024-06-06 21:56:00 2024-06-07 02:40:00 Emergency Tracypaulychuy Karlarita Shankar [facility] 1.2.840.114 350.1.13.10 4.2.7.2.686 [id number] [facility] 2024-06-02 00:00:00 2024-06-02 00:00:00 Outpatient JOANNE MONTES [id number] [facility] 2024-05-28 13:00:00 2024-05-28 13:00:00 Outpatient GISELLE OSORIO [id number] [facility] 2024-05-20 00:00:00 2024-05-20 00:00:00 Outpatient JOANNE MONTES [id number] [facility] 2024-05-19 11:44:00 2024-05-19 13:35:00 Emergency X ANNALISE WRIGHT [facility] ERT [id number] [facility] 2024-05-19 11:44:00 2024-05-19 13:35:00 Emergency Annalise Wright [facility] 1.2.840.114 350.1.13.10 4.2.7.2.686 [id number] [facility] 2024-05-18 11:15:00 2024-05-18 11:15:00 Outpatient LEYLA DORMAN [id number] [facility] 2024-05-18 10:30:00 2024-05-18 10:30:00 Outpatient JOANNE MONTES [id number] [facility] 2024-05-17 18:30:00 2024-05-17 22:19:00 Emergency Alesha Roy [facility] 1..840.114 350.1.13.10 4.2.7.2.686 [id number] [facility] 2024-05-13 18:04:00 2024-05-13 20:42:00 Emergency ER KERN ARELIS [facility] [id number] [facility] 2024-05-12 00:00:00 2024-05-12 00:00:00 Outpatient JOANNE MONTES [id number] [facility] 2024-05-07 18:47:00 2024-05-07 21:36:00 Emergency Saleem Edward [facility] 1..840.114 350.1.13.10 4.2.7.2.686 [id number] [facility] 2024-04-22 09:15:00 2024-04-22 09:15:00 Outpatient FARTUN GILLESPIE [id number] [facility] 2024-04-15 10:30:00 2024-04-15 10:30:00 Outpatient JOANNE MONTES KELLEE DORMAN [id number] [facility] 2024-04-12 00:00:00 2024-04-12 00:00:00 Outpatient ZACHARY MONTESSharlene DORMAN [id number] [facility] 2024-04-10 16:20:00 2024-04-10 18:53:00 Emergency ER TAVARES MG JR [facility] [id number] [facility] 2024-04-10 16:20:00 2024-04-10 18:53:00 Departed Emergency Room [facility] [id number] 85 [facility] 2024-04-08 17:37:00 2024-04-08 20:38:00 Emergency Leigh Rojo [facility] 1.2.840.114 350.1.13.10 4.2.7.2.686 [id number] [facility] 2024-04-08 00:00:00 2024-04-08 00:00:00 Outpatient JOANNE MONTES KELLEE DORMAN [id number] [facility] 2024-03-12 00:00:00 2024-03-12 00:00:00 Outpatient JYOTI JOANNE DORMAN [id number] [facility] 2024-03-06 11:00:00 2024-03-06 11:00:00 Outpatient JYOTI JOANNE DORMAN [id number] [facility] 2024-02-06 11:00:00 2024-02-06 11:00:00 Outpatient GISELLE OSORIO [id number] [facility] 2024-02-06 10:40:00 2024-02-06 10:40:00 Outpatient KELLEE DROMAN [id number] [facility] 2024-02-06 00:00:00 2024-02-06 00:00:00 Outpatient HUNDL, JOANNE DORMAN [id number] [facility] 2024-02-05 00:00:00 2024-02-05 00:00:00 Outpatient HUNDL, JOANNE DORMAN [id number] [facility] 2024-01-14 09:30:00 2024-01-14 09:30:00 Outpatient HUNDL, [facility]ORMAN [id number] [facility]24-[facility]-09 00:00:00 2024-01-09 00:00:00 Outpatient HUNDL, JOANNE DORMAN [id number] [facility] 2024-01-06 00:00:00 2024-01-06 00:00:00 Outpatient HUNDL, JOANNE DORMAN [id number] [facility] 2024-01-03 00:00:00 2024-01-03 00:00:00 Outpatient HUNDL, JOANNE DORMAN [id number] [facility] 2024-01-02 14:00:00 2024-01-02 14:00:00 Outpatient HUNDL, JOANNE DORMAN [id number] [facility] 2023-12-13 09:30:00 2023-12-13 09:30:00 Outpatient HUNDL, JOANNE DORMAN [id number] [facility] 2023-12-09 00:00:00 2023-12-09 00:00:00 Outpatient HUNDL, JOANNE DORMAN [id number] [facility] 2023-12-05 00:00:00 2023-12-05 00:00:00 Outpatient HUNDL, JOANNE DORMAN [id number] [facility] 2023-12-03 11:45:00 2023-12-03 11:45:00 Outpatient LABGerman DORMAN [id number] [facility]-03 11:00:00 2023-12-03 11:00:00 Outpatient HUNDL, JOANNE DORMAN [id number] [facility] 2023-11-26 00:00:00 2023-11-26 00:00:00 Outpatient HUNDL, JOANNE DORMAN [id number] [facility] 2023-10-31 00:00:00 2023-10-31 00:00:00 Outpatient COSMO DORMAN [id number] [facility] 2023-10-31 00:00:00 2023-10-31 00:00:00 Outpatient COSMO DORMAN [id number] [facility] 2023-10-29 14:15:00 2023-10-29 14:15:00 Outpatient LAB90 KELLEE DORMAN [id number] [facility] 2023-10-29 13:30:00 2023-10-29 13:30:00 Outpatient JOANNE MONTES KELLEE [id number] [facility] 2023-10-10 21:31:00 2023-10-11 00:43:00 Emergency X TRACYSONU OLIVIA [facility] ERT [id number] [facility] 2023-10-10 21:31:00 2023-10-11 00:43:00 Emergency Olivia Garcia Raad [facility] 1.2.840.114 350.1.13.10 4.2.7.2.686 [id number] [facility] 2023-08-31 18:02:00 2023-08-31 22:40:00 Emergency ER DEEPAGRACESHERIDAN RAMIREZ [facility] [id number] [facility] 2023-08-31 18:02:00 2023-08-31 22:40:00 emergency [facility] [id number] 2023-07-01 19:50:00 2023-07-01 22:59:00 Emergency X ROBERTO RICHARDS [facility] ERT [id number] [facility] 2023-07-01 19:50:00 2023-07-01 22:59:00 Emergency Roberto Richards [facility] 1.2.840.114 350.1.13.10 4.2.7.2.686 [id number] [facility] 2023-06-04 23:37:00 2023-06-06 13:30:00 Inpatient ER SHAN BUSCH [facility] [id number] [facility] 2023-06-04 23:37:00 2023-06-06 13:30:00 observatio n encounter [facility] [id number] [facility] [id number] 2023-05-11 01:16:00 2023-05-13 17:04:00 Inpatient ER RIDDHI MYLES [facility] [id number] [facility] 2023-05-11 01:16:00 2023-05-13 17:04:00 observatio n encounter [facility] [id number] [facility] [id number] 2023-05-10 21:48:00 2023-05-10 21:48:00 Emergency ER AN IRIZARRY [facility] [id number] [facility] 2023-05-09 17:40:00 2023-05-09 20:30:00 Emergency X NARAYAN NARVAEZ [facility] ERT [id number] [facility] 2023-05-09 17:40:00 2023-05-09 20:30:00 Emergency Narayan Narvaez [facility] 1.2.840.114 350.1.13.10 4.2.7.2.686 [id number] [facility] 2023-05-05 21:31:00 2023-05-06 03:15:00 Emergency ER SHERIDAN MCMANUS [facility] [id number] [facility] 2023-05-05 21:31:00 2023-05-06 03:15:00 emergency [facility] [id number] 2023-04-30 17:18:00 2023-04-30 21:20:00 Emergency NARAYAN MATA [facility] ERT [id number] [facility] 2023-04-30 17:18:00 2023-04-30 21:20:00 Emergency Narayan Narvaez [facility] 1.2.840.114 350.1.13.10 4.2.7.2.686 [id number] [facility] 2023-04-16 20:40:00 2023-04-16 23:10:00 Emergency ROBERTO TOBIN [facility] ERT [id number] [facility] 2023-04-16 20:40:00 2023-04-16 23:10:00 Emergency Roberto Richards [facility] 1.2.840.114 350.1.13.10 4.2.7.2.686 [id number] [facility] 2023-04-08 17:28:00 2023-04-08 21:20:00 Emergency X Saleem EDWARD [facility] ERT [id number] [facility] 2023-04-08 17:28:00 2023-04-08 21:20:00 Emergency Saleem Edward [facility] 1.2.840.114 350.1.13.10 4.2.7.2.686 [id number] [facility] 2023-03-09 20:23:00 2023-03-10 00:20:00 Emergency X ROBERTO RICHARDS [facility] ERT [id number] [facility] 2023-03-09 20:23:00 2023-03-10 00:20:00 Emergency Maurice Roberto [facility] 1.2.840.114 350.1.13.10 4.2.7.2.686 [id number] [facility] 2023-03-01 19:35:00 2023-03-02 01:35:00 Emergency X OLIVIA GARCIA [facility] ERT [id number] [facility] 2023-03-01 19:35:00 2023-03-02 01:35:00 Emergency Olivia Garcia [facility] 1.2.840.114 350.1.13.10 4.2.7.2.686 [id number] [facility] 2023-02-17 22:58:00 2023-02-18 02:22:00 Emergency X BRITTNI PADGETT [facility] ERT [id number] [facility] 2023-02-17 22:58:00 2023-02-18 02:22:00 Emergency Brittni Padgett [place] [facility] 1.2.840.114 350.1.13.10 4.2.7.2.686 [id number] [facility] 2023-02-15 13:46:00 2023-02-17 16:14:00 Outpatient X JESÚS MONTERO [facility] ALTHEA [id number] [facility] 2023-02-15 13:46:00 2023-02-17 16:14:00 [facility] 1.2.840.114 350.1.13.10 4.2.7.2.686 [id number] [facility] 2022-01-17 10:48:00 2022-01-17 10:48:00 Outpatient CATHIE HUYNH [id number] Heather henriquez [facility] 2022-01-09 16:47:00 2022-01-09 20:28:00 Emergency X MELIDA LONGORIA [facility] ERT [id number] [facility] 2022-01-09 16:47:00 2022-01-09 20:28:00 Emergency Melida Longoria [facility] 1.2.840.114 350.1.13.10 4.2.7.2.686 [id number] 084 [id number] [facility] 2021-12-13 22:16:00 2021-12-14 02:28:00 Emergency X WIL MCQUEEN [facility] ERT [id number] [facility] 2021-12-13 22:16:00 2021-12-14 02:28:00 Emergency Wil Mcqueen [facility] 1.2840.114 350.1.13.10 4.2.7.2.686 [id number] [id number] [facility] 2021-11-11 19:50:00 2021-11-11 23:17:00 Emergency X DEE WANG [facility] ERT [id number] [facility] 2021-11-11 19:50:00 2021-11-11 23:17:00 Emergency GenaroclaudiaDee kumar Poncho [facility] 1.2.840.114 350.1.13.10 4.2.7.2.686 [id number] 084 [id number] [facility] 2021-11-11 00:00:00 2021-11-11 00:00:00 Orders Only Doctor Unassigned, [place] [facility] 1.2.840.114 350.1.13.10 4.2.7.2.686 [id number] [facility] 2021-09-11 19:42:00 2021-09-11 23:02:00 Emergency X DEE WANG [facility] ERT [id number] [facility] 2021-09-11 19:42:00 2021-09-11 23:02:00 Emergency Dee Wang [facility] 1.2.840.114 350.1.13.10 4.2.7.2.686 [id number] 084 [id number] [facility] 2021-08-14 23:38:00 2021-08-15 02:29:00 Emergency X OLIVIA GARCIA [facility] ERT [id number] [facility] 2021-08-14 23:38:00 2021-08-15 02:29:00 Emergency Olivia Garcia [facility] 1.2.840.114 350.1.13.10 4.2.7.2.686 [id number] 084 [id number] [facility] 2021-05-27 23:23:00 2021-05-28 04:23:00 Emergency X CEM CHOI [facility] ERT [id number] [facility] 2021-05-27 23:23:00 2021-05-28 04:23:00 Emergency Cem Choi [facility] 1.2.840.114 350.1.13.10 4.2.7.2.686 [id number] [id number] [facility] 2021-04-10 00:00:00 2021-04-10 00:00:00 Transition of Care Shelley Rosas [facility] 1.2.840.114 350.1.13.10 4.2.7.2.686 [id number] [facility] 2021-04-07 16:30:00 2021-04-08 17:45:00 Hospital Encounter Roberto Richards Jelani [facility] 1.2.840.114 350.1.13.10 4.2.7.2.686 [id number] 081 [id number] [facility] 2021-04-07 16:18:00 2021-04-07 16:18:00 Emergency X [facility] ERT [id number] [facility] 2021-01-12 03:01:00 2021-01-12 04:56:00 Emergency Narayan Narvaez [facility] 1.2.840.114 350.1.13.10 4.2.7.2.686 [id number] [id number] [facility] 2021-01-12 03:01:00 2021-01-12 03:01:00 Emergency X NARAYAN NARVAEZ [facility] ERT [id number] [facility] 2020-12-10 17:12:00 2020-12-10 21:14:00 Emergency Bal Hassan [facility] 1.2.840.114 350.1.13.10 4.2.7.2.686 [id number] 084 [id number] [facility] 2020-12-10 17:12:00 2020-12-10 17:12:00 Emergency X DIDI HASSANANNE [facility] ERT [id number] [facility] 2020-12-04 14:50:00 2020-12-04 17:08:00 Emergency Tremaine Becerra [facility] 1.2.840.114 350.1.13.10 4.2.7.2.686 [id number] 084 [id number] [facility] 2020-12-04 14:50:00 2020-12-04 17:08:00 Emergency X TREMAINE BECERRA [facility] ERT [id number] [facility] 2020-11-03 20:44:00 2020-11-03 23:34:00 Emergency Leeanne Wise [facility] 1.2.840.114 350.1.13.10 4.2.7.2.686 [id number] 084 [id number] [facility] 2020-11-03 20:44:00 2020-11-03 23:34:00 Emergency X LEEANNE WISE [facility] ERT [id number] [facility] 2020-09-19 12:32:00 2020-09-19 14:15:00 Emergency ER MORA POLLOCK [facility] [id number] [facility] 2020-09-17 09:53:00 2020-09-17 11:55:00 Emergency Leeanne Wise [facility] 1.2.840.114 350.1.13.10 4.2.7.2.686 [id number] [id number] [facility] 2020-09-17 09:53:00 2020-09-17 11:55:00 Emergency X LEEANNE WISE [facility] ERT [id number] [facility] 2020-09-17 09:53:00 2020-09-17 11:55:00 Emergency Leeanne Wise [facility] 1.2.840.114 350.1.13.10 4.2.7.2.686 [id number] 084 [id number] 2020-09-07 00:37:00 2020-09-07 01:41:00 Emergency Saleem Edward [facility] 1.2840.114 350.1.13.10 4.2.7.2.686 [id number] 084 [id number] [facility] 2020-09-07 00:37:00 2020-09-07 01:41:00 Emergency X Saleem EDWARD [facility] ERT [id number] [facility] 2020-09-07 00:37:00 2020-09-07 01:41:00 Emergency Saleem Edward [facility] 1.2.840.114 350.1.13.10 4.2.7.2.686 [id number] 084 [id number] 2020-09-07 00:00:00 2020-09-07 00:00:00 Orders Only Doctor Unassigned, [place] [facility] 1.2.840.114 350.1.13.10 4.2.7.2.686 [id number] 2020-09-07 00:00:00 2020-09-07 00:00:00 Orders Only Doctor Unassigned, [place] [facility] 1.2.840.114 350.1.13.10 4.2.7.2.686 [id number] [id number] [facility] 2020-08-28 01:59:00 2020-08-28 04:40:00 Emergency Olivia Garcia [facility] 1.2.840.114 350.1.13.10 4.2.7.2.686 [id number] 084 [id number] 2020-08-28 01:59:00 2020-08-28 04:40:00 Emergency Olivia Garcia [facility] 1.2.840.114 350.1.13.10 4.2.7.2.686 [id number] 084 [id number] [facility] 2020-08-28 01:59:00 2020-08-28 01:59:00 Emergency X OLIVIA GARCIA [facility] ERT [id number] [facility] 2020-08-14 11:48:00 2020-08-14 13:42:00 Emergency Best [place] [facility] 1.2.840.114 350.1.13.10 4.2.7.2.686 [id number] 084 [id number] 2020-08-14 11:48:00 2020-08-14 13:42:00 Emergency Best Taylor [facility] 1.2.840.114 350.1.13.10 4.2.7.2.686 [id number] [id number] [facility] 2020-08-14 11:33:00 2020-08-14 11:33:00 Emergency X BEST TAYLOR [facility] ERT [id number] [facility] 2020-08-10 18:35:00 2020-08-11 00:05:00 Emergency Best [place] [facility] 1.2.840.114 350.1.13.10 4.2.7.2.686 [id number] 084 [id number] 2020-08-10 18:35:00 2020-08-11 00:05:00 Emergency Best [place] S [facility] 1.2.840.114 350.1.13.10 4.2.7.2.686 [id number] 084 [id number] [facility] 2020-08-10 18:35:00 2020-08-11 00:05:00 Emergency X OLIVIA GARCIA [facility] ERT [id number] [facility] 2020-08-07 07:19:00 2020-08-07 09:02:00 Emergency [facility] 1.2.840.114 350.1.13.10 4.2.7.2.686 [id number] 084 [id number] 2020-08-07 07:19:00 2020-08-07 09:02:00 Emergency [facility] 1.2.840.114 350.1.13.10 4.2.7.2.686 [id number] 084 [id number] [facility] 2020-08-07 07:12:00 2020-08-07 07:12:00 Emergency X [facility] ERT [id number] [facility] 2020-08-07 00:00:00 2020-08-07 00:00:00 Orders Only Doctor Unassigned, [place] [facility] 1.2.840.114 350.1.13.10 4.2.7.2.686 [id number] [id number] 2020-08-07 00:00:00 2020-08-07 00:00:00 Orders Only Doctor Unassigned, [place] [facility] 1.2.840.114 350.1.13.10 4.2.7.2.686 [id number] [id number] [facility] 2020-07-01 00:00:00 2020-07-01 00:00:00 Letter (Out) [facility] 1.2.840.114 350.1.13.10 4.2.7.2.686 [id number] 019 [id number] 2020-07-01 00:00:00 2020-07-01 00:00:00 Letter (Out) [facility] 1.2.840.114 350.1.13.10 4.2.7.2.686 [id number] [facility] 2020-06-30 17:46:00 2020-06-30 21:06:00 Emergency [facility] 1.2.840.114 350.1.13.10 4.2.7.2.686 [id number] 084 [id number] 2020-06-30 17:46:00 2020-06-30 21:06:00 [facility] 1.2.840.114 350.1.13.10 4.2.7.2.686 [id number] 084 [id number] [facility] 2020-06-30 17:46:00 2020-06-30 21:06:00 Emergency X ABDIAS ROBERTSON [facility] ERT [id number] [facility] 2020-06-28 16:00:00 2020-06-28 18:08:[address] [facility] 1.2.840.114 350.1.13.10 4.2.7.2.686 [id number] [id number] 2020-06-28 16:00:00 2020-06-28 18:08:[address] [facility] 1.2.840.114 350.1.13.10 4.2.7.2.686 [id number] [id number] [facility] 2020-06-28 16:00:00 2020-06-28 16:00:00 Emergency X NARAYAN NARVAEZ [facility] ERT [id number] [facility] 2020-06-14 00:00:00 2020-06-14 00:00:00 [facility] 1.2.840.114 350.1.13.10 4.2.7.2.686 [id number] 2020-06-14 00:00:00 2020-06-14 00:00:00 [facility] 1.2.840.114 350.1.13.10 4.2.7.2.686 [id number] 019 [id number] [facility] 2020-06-12 17:40:00 2020-06-12 22:05:00 Emergency Leeanne Wise [facility] 1.2.840.114 350.1.13.10 4.2.7.2.686 [id number] 084 [id number] 2020-06-12 17:40:00 2020-06-12 22:05:00 Emergency Leeanne Wise [facility] 1.2.840.114 350.1.13.10 4.2.7.2.686 [id number] 084 [id number] [facility] 2020-06-12 17:28:00 2020-06-12 17:28:00 Emergency X [facility] ERT [id number] [facility] 2020-05-16 17:10:00 2020-05-16 19:01:00 Emergency Bushra Rios [facility] 1.2.840.114 350.1.13.10 4.2.7.2.686 [id number] 084 [id number] 2020-05-16 17:10:00 2020-05-16 19:01:00 Emergency Bushra Rios [facility] 1.2.840.114 350.1.13.10 4.2.7.2.686 [id number] 084 [id number] [facility] 2020-05-16 17:10:00 2020-05-16 17:10:00 Emergency X BUSHRA RIOS [facility] ERT [id number] [facility] 2020-05-14 23:18:00 2020-05-15 02:54:00 Emergency Roberto Richards [facility] 1.2.840.114 350.1.13.10 4.2.7.2.686 [id number] 084 [id number] 2020-05-14 23:18:00 2020-05-15 02:54:00 Emergency Roberto Richards [facility] 1.2.840.114 350.1.13.10 4.2.7.2.686 [id number] 084 [id number] [facility] 2020-05-14 23:14:00 2020-05-14 23:14:00 Emergency X ROBERTO RICHARDS [facility] ERT [id number] [facility] 2009-07-18 05:35:00 2009-07-18 09:19:00 Emergency ER SINCERE FRANK [facility] [id number] [facility] 2008-10-08 09:55:00 2008-10-08 14:19:00 Emergency ER ACACIA ALVAREZED [facility] [id number] [facility] 2008-03-26 15:21:00 2008-03-26 18:08:00 Emergency ER NEIL WILKINS [facility] [id number] [facility] 2005-05-25 06:35:00 2005-05-25 06:35:00 Outpatient LISA LUNA [facility] [id number] [facility] 2005-05-16 21:57:00 2005-05-16 23:40:00 Emergency ER JW SOLORZANO [facility] [id number] [facility] 2005-04-24 18:49:00 2005-04-24 22:40:00 Emergency ER JW SOLORZANO [facility] [id number] [facility] 2004-12-27 20:30:00 2004-12-28 01:40:00 Emergency ER SANIA SIBLEY [facility] [id number] [facility] 2003-12-07 22:40:00 2003-12-08 02:48:00 Emergency ER GINA MARTIN [facility] [id number] [facility] 2003-12-06 13:57:00 2003-12-06 18:30:00 Emergency ER YIN RIOS [facility] [id number] [facility] 2003-08-31 19:43:00 2003-08-31 22:55:00 Emergency ER GUMARO ALVAREZ [facility] [id number] [facility] 2003-08-22 19:26:00 2003-08-22 22:10:00 Emergency ER TIN ALBERTO [facility] [id number] [facility] 2002-01-30 22:41:00 2002-01-31 01:29:00 Emergency ER JENNIE, ANTHONY [facility] [id number] [facility] 2001-10-28 09:15:00 2001-10-28 11:25:00 Emergency ER BETH MCKEONUP [facility] [id number] [facility] 2001-04-15 19:14:00 2001-04-15 23:10:00 Emergency ER YESICA ARLETTE [facility] [id number] [facility] 2000-12-25 21:52:00 2000-12-26 00:15:00 Emergency ER GISELA RIOS [facility] [id number] [facility] 2000-12-23 18:51:00 2000-12-23 22:00:00 Emergency ER HUGO COFFMAN [facility] [id number] [facility] 1999-10-26 21:11:00 1999-10-27 00:20:00 Emergency ER JW SOLORZANO [facility] [id number] [facility] Results Test Description Test Time Test Comments [...] Osseous: No acute osseous finding. [facility] CT Abdomen pelvis w contrast 06:50:04 Exam: [...] ?There is nopelvic adenopathy. Osseous/Soft Tissues: Unremarkable. [facility] [id number] 04:06:42* Test Item Value Reference Range Interpretation Comme nts NA (test code = 8862593166) 139 mmol/L 135-145 K (test code = 1690912673) 3.5 mmol/L 3.5-5.0 CL (test code = 2273581064) 105 mmol/L 98-108 CO2 TOTAL (test code = 6301596846) 26 mmol/L 23-31 AGAP (test code = 9675923958) 8 2-16 BUN (test code = 2303821901) 5 mg/dL 7-23 L GLUCOSE (test code = 4747392888) 101 mg/dL 70-110 CREATININE (test code = 2160-0) 0.58 mg/dL 0.50-1.04 TOTAL BILI (test code = 5519831049) 0.1-1.1 L CALCIUM (test code = 5627469675) 9.3 mg/dL 8.6-10.6 T PROTEIN (test code = 0871447180) 6.8 g/dL 6.3-8.2 ALBUMIN (test code = 1662511501) 3.9 g/dL 3.5-5.0 ALK PHOS (test code = 3000867079) 74 U/L 34-122 ALTv (test code = 1742-6) 17 U/L 5-35 AST(SGOT) (test code = 6025869329) 28 U/L 13-40 eGFR (test code = 61693-4) 113.9 mL/min/1.73m2 CKD-EPI eGFR (2020). Assuming creatinine has been stable day-to-day for at least three months, the eGFR indicates Category G1 (>= 90 mL/min/1.73 m2) Lab Interpretation (test code = 93706-5) [facility]normal [facility], [id number] 04:01:05* Test Item Value Reference Range Interpretation Comme nts LIPASE (test code = 1238729313) 80 U/L 0-220 Lab Interpretation (test cod e = 05853-8) Normal [facility] with Ykaohdnndjee1604-89-01 03:46:26* Test Item Value Reference Range Interpretation [...] 33.2 g/dL 31.6-35.1 RDW-SD (test code = 32353-4) 42.5 fL 39.0-49.9 RDW-CV (test code = 788-0) 14.6 % 12.0-15.5 PLT (test code = 777-3) 327 166-358 MPV (test code = 56513-5) 9.3 fL 9.5-12.9 L NRBC/100 WBC (test code = 5047433887) 0.0 0.0-10.0 NRBC x10^3 (test code = 7970486708) See_Comment [Automated shoppa ge] The system which generated this result transmitted reference range: 10*3/?L. The reference range was not used to interpret this result as normal/abnormal. GRAN MAT (NEUT) % (test code = 770-8) 65.7 % IMM GRAN % (test code = 4863478620) 0.50 % LYMPH % (test code = 736-9) 26.4 % MONO % (test code = 5905-5) 5.6 % EOS % (test code = 713-8) 1.4 % BASO % (test code = 706-2) 0.4 % GRAN MAT x10^3(ANC) (test code = 6476126085) 8.21 10*3/uL 1.88-7.09 H IMM GRAN x10^3 (test code = 3911415286) 0.06 10*3/uL 0.00-0.06 LYMPH x10^3 (test code = 731-0) 3.30 10*3/uL 1.32-3.29 H MONO x10^3 (test code = 742-7) 0.70 10*3/uL 0.33-0.92 EOS x10^3 (test code = 711-2) 0.17 10*3/uL 0.03-0.39 BASO x10^3 (test code = 704-7) 0.05 10*3/uL 0.01-0.07 Lab Interpretation (test code = 29023-8) [facility] w wkizyzdy8409-67-73 05:39:04CT ABDOMEN PELVIS W CONTRAST HISTORY: 44 [...] TISSUES: No suspicious lytic or sclerotic bony lesions.[facility]. Metabolic Panel (12632)2024-06-15 05:12:33* Test Item Value Reference Range Interpretation Comme nts NA (test code = 9620555901) 139 mmol/L 135-145 K (test code = 7645165822) 3.7 mmol/L 3.5-5.0 CL (test code = 3982350654) 109 mmol/L 98-108 H CO2 TOTAL (test code = 9253574586) 23 mmol/L 23-31 AGAP (test code = 2351786461) 7 2-16 BUN (test code = 5249789119) 6 mg/dL 7-23 L GLUCOSE (test code = 9172592600) 101 mg/dL 70-110 CREATININE (test code = 2160-0) 0.67 mg/dL 0.50-1.04 TOTAL BILI (test code = 3028617515) 0.1-1.1 L CALCIUM (test code = 8583523166) 9.4 mg/dL 8.6-10.6 T PROTEIN (test code = 3198090343) 7.0 g/dL 6.3-8.2 ALBUMIN (test code = 2014583362) 4.0 g/dL 3.5-5.0 ALK PHOS (test code = 7420508939) 87 U/L 34-122 ALTv (test code = 1742-6) 28 U/L 5-35 AST(SGOT) (test code = 8408030821) 24 U/L 13-40 eGFR (test code = 07091-7) 110.0 mL/min/1.73m2 CKD-EPI eGFR (2020). Assuming creatinine has been stable day-to-day for at least three months, the eGFR indicates Category G1 (>= 90 mL/min/1.73 m2) Lab Interpretation (test code = 14409-1) Abnormal [facility] Taylor[facility]roponin [id number] 05:03:33* Test Item Value Reference Range Interpretation Comme nts TROPONIN I (test code = 8741828021) 0.000 ng/mL <=0.034 DARWIN (test code = [...] of biotin. Lab Interpretation (test code = 90855-5) Normal [facility]2024-12-09 04:51:35* Test Item Value Reference Range Interpretation Comme nts LIPASE (test code = 8131243260) 94 U/L 0-220 Lab Interpretation (test cod e = 46196-8) Normal [facility] Taylor[facility]regnancy Test, Txyhy7102-28-33 04:51:30* Test Item Value Reference Range Interpretation Comme nts PREG SERUM (test code = 9946409879) Negative DARWIN (test code = DARWIN) Less than 10 IU/L. ?If low titer or ectopic is suspected, resubmit specimen in 48-72 hours. [facility] Taylor[facility]b with Ymow8400-80-89 04:36:57* Test Item Value Reference Range Interpretation [...] 32.9 g/dL 31.6-35.1 RDW-SD (test code = 18577-2) 44.3 fL 39.0-49.9 RDW-CV (test code = 788-0) 15.0 % 12.0-15.5 PLT (test code = 777-3) 347 166-358 MPV (test code = 18798-8) 9.4 fL 9.5-12.9 L NRBC/100 WBC (test code = 4681985805) 0.0 0.0-10.0 NRBC x10^3 (test code = 6606883898) See_Comment [Automated messa ge] The system which generated this result transmitted reference range: 10*3/?L. The reference range was not used to interpret this result as normal/abnormal. GRAN MAT (NEUT) % (test code = 770-8) 60.2 % IMM GRAN % (test code = 2420273734) 0.40 % LYMPH % (test code = 736-9) 31.3 % MONO % (test code = 5905-5) 5.8 % EOS % (test code = 713-8) 1.8 % BASO % (test code = 706-2) 0.5 % GRAN MAT x10^3(ANC) (test code = 9404743763) 6.36 10*3/uL 1.88-7.09 IMM GRAN x10^3 (test code = 9478445242) 0.04 10*3/uL 0.00-0.06 LYMPH x10^3 (test code = 731-0) 3.30 10*3/uL 1.32-3.29 H MONO x10^3 (test code = 742-7) 0.61 10*3/uL 0.33-0.92 EOS x10^3 (test code = 711-2) 0.19 10*3/uL 0.03-0.39 BASO x10^3 (test code = 704-7) 0.05 10*3/uL 0.01-0.07 Lab Interpretation (test code = 72205-2) Abnormal [facility] Taylor[facility]ang [id number] 07:55:17* Test Item Value Reference Range Interpretation Comme nts TROPONIN I (test code = 5948679644) 0.000 ng/mL <=0.034 DARWIN (test code = [...] of biotin. Lab Interpretation (test code = 22705-9) Normal [facility]ST 1 [id number] 06:16:28Exam: Chest (1 View), 06/06/2024 11:30 PM. Ordering Physician: OLIVIA GARCIA. History: Chest pain. Technique: AP view of the chest. Technical Quality: Adequate. Comparison: Chest radiograph 05/17/2024. Findings: Normal cardiac silhouette size. ?No airspace consolidation, pleuraleffusion, or pneumothorax. No acute osseous abnormality.[facility] [id number] 05:19:00* Test Item Value Reference Range Interpretation Comme nts POCT PREG (test code = 1605) Negative On board controls acceptable with C Line (test code = 3574) Yes POCT PREG LOT # (test code = 3575) [id number] POCT PREG TEST DATE ( test code = 3576) 04/11/2025 Lab Interpretation (test cod e = 53995-8) Normal [facility] TaylorTroponin [id number] 05:00:24* Test Item Value Reference Range Interpretation Comme nts TROPONIN I (test code = 8014346763) 0.000 ng/mL <=0.034 DARWIN (test code = [...] of biotin. Lab Interpretation (test code = 70213-8) Normal [facility]. Metabolic Panel (88797)2024-06-07 05:00:19* Test Item Value Reference Range Interpretation Comme nts NA (test code = 3159736302) 139 mmol/L 135-145 K (test code = 7006966008) 3.6 mmol/L 3.5-5.0 CL (test code = 6529139286) 108 mmol/L 98-108 CO2 TOTAL (test code = 6448487001) 22 mmol/L 23-31 L AGAP (test code = 7019574878) 9 2-16 BUN (test code = 0601076511) 10 mg/dL 7-23 GLUCOSE (test code = 6128211824) 144 mg/dL 70-110 H CREATININE (test code = 2160-0) 0.62 mg/dL 0.50-1.04 TOTAL BILI (test code = 9522199812) 0.1-1.1 L CALCIUM (test code = 5778583741) 9.2 mg/dL 8.6-10.6 T PROTEIN (test code = 3630905507) 6.5 g/dL 6.3-8.2 ALBUMIN (test code = 9324852484) 3.7 g/dL 3.5-5.0 ALK PHOS (test code = 2341479381) 69 U/L 34-122 ALTv (test code = 1742-6) 14 U/L 5-35 AST(SGOT) (test code = 8634933020) 15 U/L 13-40 eGFR (test code = 24429-2) 112.1 mL/min/1.73m2 CKD-EPI eGFR (2020). Assuming creatinine has been stable day-to-day for at least three months, the eGFR indicates Category G1 (>= 90 mL/min/1.73 m2) Lab Interpretation (test code = 54884-9) Abnormal [facility] with [id number] 04:38:25* Test Item Value Reference Range Interpretation [...] 32.8 g/dL 31.6-35.1 RDW-SD (test code = 44861-7) 44.1 fL 39.0-49.9 RDW-CV (test code = 788-0) 14.9 % 12.0-15.5 PLT (test code = 777-3) 358 166-358 MPV (test code = 64245-5) 9.4 fL 9.5-12.9 L NRBC/100 WBC (test code = 4420065494) 0.0 0.0-10.0 NRBC x10^3 (test code = 9950261237) See_Comment [Automated messa ge] The system which generated this result transmitted reference range: 10*3/?L. The reference range was not used to interpret this result as normal/abnormal. GRAN MAT (NEUT) % (test code = 770-8) 58.2 % IMM GRAN % (test code = 3863960903) 0.40 % LYMPH % (test code = 736-9) 34.1 % MONO % (test code = 5905-5) 4.7 % EOS % (test code = 713-8) 2.3 % BASO % (test code = 706-2) 0.3 % GRAN MAT x10^3(ANC) (test code = 3010020642) 5.33 10*3/uL 1.88-7.09 IMM GRAN x10^3 (test code = 4049579924) 0.04 10*3/uL 0.00-0.06 LYMPH x10^3 (test code = 731-0) 3.12 10*3/uL 1.32-3.29 MONO x10^3 (test code = 742-7) 0.43 10*3/uL 0.33-0.92 EOS x10^3 (test code = 711-2) 0.21 10*3/uL 0.03-0.39 BASO x10^3 (test code = 704-7) 0.03 10*3/uL 0.01-0.07 Lab Interpretation (test code = 93300-0) [facility] [id number] 18:53:41EXAM: CT HEAD WO CONTRAST HISTORY: 44 [...] and central skull base are unremarkable.[facility] FOR[facility] 2 VW [id number] 04:08:39EXAM: XR HAND 3+ VW RIGHT, XR [...] body. Mild diffuse soft tissue swelling.[facility]+ VW [id number] 04:08:39EXAM: XR HAND 3+ VW RIGHT, XR [...] body. Mild diffuse soft tissue swelling.[facility] Taylor[facility] ELBOW <3 VW [id number] 04:08:39EXAM: XR HAND 3+ VW RIGHT, XR [...] radiopaqueforeign body. Mild diffuse soft tissue swelling. [facility] MAXILLOFACIAL/MANDIBLE WO CONTRAST 2024-05-18 03:36:27ORDERING PHYSICIAN:ALESHA [...] no evidence of retrobulbar hematomas or retroconal fatstranding.[facility] CERVICAL SPINE WO CONTRAST 2024-05-18 03:28:19ORDERING [...] tissues arenormal. The visualized lung apices are clear.[facility] Fxcc0938-16-82 02:00:00* Test Item Value Reference Range Interpretation Comme nts POCT PREG (test code = 1605) Negative On board controls acceptable with C Line (test code = 3574) Yes Lab Interpretation (test cod e = 59414-6) Normal [facility]. Metabolic Panel (10798)2024-05-08 01:19:56* Test Item Value Reference Range Interpretation Comme nts NA (test code = 6979728730) 139 mmol/L 135-145 K (test code = 1588243032) 3.3 mmol/L 3.5-5.0 L CL (test code = 4915640214) 107 mmol/L 98-108 CO2 TOTAL (test code = 3953193649) 22 mmol/L 23-31 L AGAP (test code = 6685536239) 10 2-16 BUN (test code = 1333570953) 5 mg/dL 7-23 L GLUCOSE (test code = 7222334439) 131 mg/dL 70-110 H CREATININE (test code = 2160-0) 0.72 mg/dL 0.50-1.04 TOTAL BILI (test code = 2872676667) 0.1-1.1 L CALCIUM (test code = 9187914871) 9.3 mg/dL 8.6-10.6 T PROTEIN (test code = 6443942050) 7.0 g/dL 6.3-8.2 ALBUMIN (test code = 2199730597) 4.1 g/dL 3.5-5.0 ALK PHOS (test code = 8973028843) 76 U/L 34-122 ALTv (test code = 1742-6) 27 U/L 5-35 AST(SGOT) (test code = 7559619702) 30 U/L 13-40 eGFR (test code = 13177-9) 105.2 mL/min/1.73m2 CKD-EPI eGFR (2020). Assuming creatinine has been stable day-to-day for at least three months, the eGFR indicates Category G1 (>= 90 mL/min/1.73 m2) Lab Interpretation (test code = 07558-4) Abnormal [facility] TaylorTroponin [id number] 01:18:54* Test Item Value Reference Range Interpretation Comme nts TROPONIN I (test code = 5723347343) 0.003 ng/mL <=0.034 DARWIN (test code = [...] of biotin. Lab Interpretation (test code = 20202-2) Normal [facility] TaylorMagnesium2024-11-01 01:07:50* Test Item Value Reference Range Interpretation Comme nts MAGNESIUM (test code = 3736211954) 1.7 mg/dL 1.7-2.4 Lab Interpretation (test cod e = 91140-8) Normal [facility] TaylorLipase2024-11-01 01:07:30* Test Item Value Reference Range Interpretation Comme nts LIPASE (test code = 6723567746) 97 U/L 0-220 Lab Interpretation (test cod e = 97567-6) Normal [facility] TaylorCb with Hnbu9354-66-04 00:51:30* Test Item Value Reference Range Interpretation [...] 33.2 g/dL 31.6-35.1 RDW-SD (test code = 74012-1) 43.6 fL 39.0-49.9 RDW-CV (test code = 788-0) 14.8 % 12.0-15.5 PLT (test code = 777-3) 382 166-358 H MPV (test code = 84257-5) 9.7 fL 9.5-12.9 NRBC/100 WBC (test code = 4249541873) 0.0 0.0-10.0 NRBC x10^3 (test code = 1695242693) See_Comment [Automated messa ge] The system which generated this result transmitted reference range: 10*3/?L. The reference range was not used to interpret this result as normal/abnormal. GRAN MAT (NEUT) % (test code = 770-8) 63.3 % IMM GRAN % (test code = 3880840587) 0.40 % LYMPH % (test code = 736-9) 27.5 % MONO % (test code = 5905-5) 5.4 % EOS % (test code = 713-8) 2.9 % BASO % (test code = 706-2) 0.5 % GRAN MAT x10^3(ANC) (test code = 5660669628) 7.25 10*3/uL 1.88-7.09 H IMM GRAN x10^3 (test code = 2578675140) 0.05 10*3/uL 0.00-0.06 LYMPH x10^3 (test code = 731-0) 3.15 10*3/uL 1.32-3.29 MONO x10^3 (test code = 742-7) 0.62 10*3/uL 0.33-0.92 EOS x10^3 (test code = 711-2) 0.33 10*3/uL 0.03-0.39 BASO x10^3 (test code = 704-7) 0.06 10*3/uL 0.01-0.07 Lab Interpretation (test code = 14482-5) Abnormal [facility] TaylorSer or plasma cardiac troponin I panel by high sensitivity bzhgco5337-45-22 17:16:00* Test Item Value Reference Range Interpretation Comme nts Troponin T High Sensitivity (test code = 04307-2) < 6.0 [facility] CtrSerum or plasma glucose measurement (mass/volume) 2024-04-10 17:14:00* Test Item Value Reference Range Interpretation Comme nts Random Glucose (test code = 2345-7) 109 [facility] CtrSerum or plasma urea nitrogen measurement (mass/volume)2024-04-10 17:14:00* Test Item Value Reference Range Interpretation Comme nts Blood Urea Nitrogen (test co de = 3094-0) 4 [facility] IhsMVK8480-43-47 17:14:00* Test Item Value Reference Range Interpretation Comme nts Aspartate Amino Transf (AST/ SGOT) (test code = PSD5228) 14 [facility] CtrBilirubin swvjh2664-27-51 17:14:00* Test Item Value Reference Range Interpretation Comme nts Total Bilirubin (test code = KOB5370) < 0.2 [facility] CtrEstimated glomerular filtration rate (GFR) gvpnvakuyhhhe9060-72-39 17:14:00* Test Item Value Reference Range Interpretation Comme nts Glomerular Filtration Rate C alc (test code = 481820274) > 60.00 [facility] CtrBUN/creatinine smiuk1570-04-28 17:14:00* Test Item Value Reference Range Interpretation Comme nts BUN/Creatinine Ratio (test c ode = 28346730) 7.3 [facility] XwnXH13446-73-27 17:14:00* Test Item Value Reference Range Interpretation Comme nts Carbon Dioxide Level (test c ode = 18615529) 22 [facility] CtrAnion gap efutrgaqgdz5307-49-25 17:14:00* Test Item Value Reference Range Interpretation Comme nts Anion Gap (test code = 21266944) 16.6 [facility] CtrCalcium xhyac3383-29-41 17:14:00* Test Item Value Reference Range Interpretation Comme nts Calcium Level (test code = 16808447) 9.9 [facility] CtrGlobulin hdg1368-57-44 17:14:00* Test Item Value Reference Range Interpretation Comme nts Globulin (test code = 644638041) 3.1 [facility] CtrALT (SGPT) ser/jagh2103-16-83 17:14:00* Test Item Value Reference Range Interpretation Comme nts Alanine Aminotransferase (AL T/SGPT) (test code = 1742-6) 10 [facility] CtrAmylase btioa5237-88-02 17:14:00* Test Item Value Reference Range Interpretation Comme nts Amylase Level (test code = 1798-8) 48 [facility] WcqMpjvcj5646-14-84 17:14:00* Test Item Value Reference Range Interpretation Comme nts Lipase (test code = 68016153) 24 [facility] CtrALP ser/vwmj3697-18-26 17:14:00* Test Item Value Reference Range Interpretation Comme nts Total Alkaline Phosphatase ( test code = 6768-6) 92 [facility] CtrCannabinoids (2-imkdxlt-TPA) adjrvhbvags5727-63-15 17:13:00* Test Item Value Reference Range Interpretation Comme nts Urine Cannabinoids (test cod e = 429981269) NEGATIVE [facility] CtrCocaine metabolite uydswe9364-41-89 17:13:00* Test Item Value Reference Range Interpretation Comme nts Urine Cocaine Metabolite (te st code = 219179920) NEGATIVE [facility] CtrOpiates vsvqs8654-96-77 17:13:00* Test Item Value Reference Range Interpretation Comme [facility] Urine Opiates Screen (test c ode = 041824498) NEGATIVE [facility] CtrUrine hydrocodone measurement (mass/volume) 2024-04-10 17:13:00* Test Item Value Reference Range Interpretation Comme nts Hydrocodone Level (test code = 3681-4) NEGATIVE [facility] fentanyl measurement by confirmatory method (mass/volume)2024-04-10 17:13:00* Test Item Value Reference Range Interpretation Comme nts Urine Fentanyl Screen (test code = 31938-1) NEGATIVE [facility] CtrPhencyclidine (PCP) vx1221-45-19 17:13:00* Test Item Value Reference Range Interpretation Comme nts Urine Phencyclidine (PCP) Le edilson (test code = 494345587) NEGATIVE [facility] CtrPropoxyphene [Mass/volume] in Tpcmh6571-49-63 17:13:00* Test Item Value Reference Range Interpretation Comme nts Propoxyphene Level (test cod e = 3545-1) NEGATIVE [facility] CtroxyCODONE [Mass/volume] in Auowe7479-07-50 17:13:00* Test Item Value Reference Range Interpretation Comme nts Oxycodone Level (test code = 86338-1) NEGATIVE [facility] CtrAmphetamine ur vzphah9091-02-30 17:13:00* Test Item Value Reference Range Interpretation Comme nts Urine Amphetamines Screen (t est code = 89745-6) NEGATIVE [facility] IarZnseihctz2370-74-86 17:13:00* Test Item Value Reference Range Interpretation Comme nts Methadone Level (test code = AZK6195) NEGATIVE [facility] CtrBenzodiazepines screen dg1374-66-06 17:13:00* Test Item Value Reference Range Interpretation Comme nts Urine Benzodiazepines Screen (test code = 267376913) POSITIVE [facility] CtrUrine leukocyte esterase egujgiorf7998-65-35 17:10:00* Test Item Value Reference Range Interpretation Comme nts Urine Leukocyte Esterase (te st code = 097978599) 3+ [facility] CtrRBC count ur yknz2124-54-75 17:08:00* Test Item Value Reference Range Interpretation Comme nts Urine RBC (test code = 798-9) 0-2 [facility] CtrUrine examination for white blood cells (WBC) 2024-04-10 17:08:00* Test Item Value Reference Range Interpretation Comme nts Urine WBC (test code = 634935185) >100 [facility] CtrAutomated epithelial cells count in urine sediment (number/area)2024-04-10 17:08:00* Test Item Value Reference Range Interpretation Comme nts Urine Epithelial Cells (test code = 52845-7) 6-10 [facility] CtrBacteria detection in urine sediment by light bgnbjsykgl6155-54-02 17:08:00* Test Item Value Reference Range Interpretation Comme nts Urine Bacteria (test code = 81484-6) Few [facility] CtrUrine casts detection by automated method 2024-04-10 17:08:00* Test Item Value Reference Range Interpretation Comme nts Urine Casts (test code = 27893-1) 0-2 [facility] CtrHCG ur TX8119-87-23 17:03:00* Test Item Value Reference Range Interpretation Comme nts Urine HCG, Qualitative (test code = 2106-3) NEGATIVE [facility] CtrColor of Urine by Roij4031-01-84 17:03:00* Test Item Value Reference Range Interpretation Comme nts Urine Color (test code = 26102-7) Yellow [facility] CtrAppearance of Yhuph7170-84-73 17:03:00* Test Item Value Reference Range Interpretation Comme nts Urine Appearance (test code = 5767-9) Cloudy [facility] CtrUrine glucose tugcaklzc0732-30-20 17:03:00* Test Item Value Reference Range Interpretation Comme nts Urine Glucose (UA) (test cod e = 2349-9) Negative [facility] CtrBilirubin fv4974-64-76 17:03:00* Test Item Value Reference Range Interpretation Comme nts Urine Bilirubin (test code = 453945908) Negative [facility] CtrKetones xu8416-52-26 17:03:00* Test Item Value Reference Range Interpretation Comme nts Urine Ketones (test code = 93235808) Negative [facility] CtrSpecific gravity of Urine by Automated test strip 2024-04-10 17:03:00* Test Item Value Reference Range Interpretation Comme nts Urine Specific Imperial (test code = 52507-3) 1.006 [facility] CtrUrine blood mbbrbfopv7928-26-95 17:03:00* Test Item Value Reference Range Interpretation Comme nts Urine Blood (test code = 26052-3) Nonhemolyzed Trace [facility] CtrpH vx4570-05-19 17:03:00* Test Item Value Reference Range Interpretation Comme nts Urine pH (test code = 2756-5) 6.000 [facility] CtrProtein zd1568-10-08 17:03:00* Test Item Value Reference Range Interpretation Comme nts Urine Protein (test code = 19804455) Negative [facility] CtrUrobilinogen, urine, dh7097-28-86 17:03:00* Test Item Value Reference Range Interpretation Comme nts Urine Urobilinogen (test cod e = 849997624) 0.2 [facility] CtrUrine nitrate zioivlovl8813-15-63 17:03:00* Test Item Value Reference Range Interpretation Comme nts Urine Nitrate (test code = 17427-7) Negative [facility] CtrAbsolute eosinophil gcexc7961-31-03 17:00:00* Test Item Value Reference Range Interpretation Comme [facility] Eosinophils # (Auto) (test c ode = ZSS1773) 0.25 [facility] CtrRBC wbqtz4775-37-09 17:00:00* Test Item Value Reference Range Interpretation Comme [facility] Red Blood Count (test code = 96624578) 5.17 [facility] HfzMpertrovts6505-96-03 17:00:00* Test Item Value Reference Range Interpretation Comme [facility] Hematocrit (test code = 74238668) 41.9 [facility] CtrMCV (mean corpuscular volume) determination 2024-04-10 17:00:00* Test Item Value Reference Range Interpretation Comme [facility] Mean Corpuscular Volume (shailesh t code = 65611-6) 81.0 [facility] CtrMean corpuscular hemoglobin (MCH) determination 2024-04-10 17:00:00* Test Item Value Reference Range Interpretation Comme [facility] Mean Corpuscular Hemoglobin (test code = 89539304) 26.1 [facility] CtrMean corpuscular hemoglobin concentration (MCHC) wilpmorjexqxk3197-01-32 17:00:00* Test Item Value Reference Range Interpretation Comme [facility] Mean Corpuscular Hemoglobin Concent (test code = 94380091) 32.2 [facility] CtrRBC distribution width coefficient of variation 2024-04-10 17:00:00* Test Item Value Reference Range Interpretation Comme [facility] Red Cell Distribution Width (test code = 35756394) 15.2 [facility] CtrPlatelet hlntm5811-83-29 17:00:00* Test Item Value Reference Range Interpretation Comme [facility] Platelet Count (test code = 77750111) 343 [facility] CtrMean platelet fnsgbq5622-78-09 17:00:00* Test Item Value Reference Range Interpretation Comme [facility] Mean Platelet Volume (test c ode = 00907902) 9.3 [facility] CtrNeutrophils seg % yar0100-23-67 17:00:00* Test Item Value Reference Range Interpretation Comme [facility] Neutrophils (%) (Auto) (test code = 43836-4) 71.4 [facility] CtrAbsolute immature granulocyte ziepf8172-39-50 17:00:00* Test Item Value Reference Range Interpretation Comme nts Absolute Immature Granulocyt e (auto (test code = 23774-4) 0.05 [facility] CtrBlood band neutrophils count (number/volume) 2024-04-10 17:00:00* Test Item Value Reference Range Interpretation Comme nts Neutrophils # (Auto) (test c ode = 86938-9) 8.20 [facility] CtrAbsolute lymphocyte akqhd0507-69-51 17:00:00* Test Item Value Reference Range Interpretation Comme nts Lymphocytes # (Auto) (test c ode = 73127-5) 2.42 [facility] CenterAbsolute basophil xzffo1508-19-56 17:00:00* Test Item Value Reference Range Interpretation Comme nts Basophils # (Auto) (test cod e = 37668845) 0.03 [facility] CtrAbsolute NRBC rvyqc6855-85-99 17:00:00* Test Item Value Reference Range Interpretation Comme nts Nucleated Red Blood Cells # (test code = 738253515) 0 [facility] CtrCT ABDOMEN PELVIS WO LIETAUJC3523-34-76 00:27:38 Ordering Physician: LEIGH ROJO Clinical indication: [...] lumbar central canal stenosis is present.[facility] Metabolic Gwleq9102-53-28 23:13:34* Test Item Value Reference Range Interpretation Comme nts NA (test code = 5621592221) 136 mmol/L 135-145 K (test code = 2018860812) 3.7 mmol/L 3.5-5.0 CL (test code = 1818970410) 106 mmol/L 98-108 CO2 TOTAL (test code = 9785825329) 20 mmol/L 23-31 L AGAP (test code = 8837140437) 10 2-16 BUN (test code = 0751625912) 6 mg/dL 7-23 L GLUCOSE (test code = 2331776057) 149 mg/dL 70-110 H CREATININE (test code = 2160-0) 0.63 mg/dL 0.50-1.04 TOTAL BILI (test code = 1281383520) 0.3 mg/dL 0.1-1.1 CALCIUM (test code = 8996412162) 9.2 mg/dL 8.6-10.6 T PROTEIN (test code = 1452175742) 7.4 g/dL 6.3-8.2 ALBUMIN (test code = 1979036067) 4.3 g/dL 3.5-5.0 ALK PHOS (test code = 4707141753) 74 U/L 34-122 ALTv (test code = 1742-6) 20 U/L 5-35 AST(SGOT) (test code = 3002635764) 22 U/L 13-40 eGFR (test code = 66084-7) 111.6 mL/min/1.73m2 CKD-EPI eGFR (2020). Assuming creatinine has been stable day-to-day for at least three months, the eGFR indicates Category G1 (>= 90 mL/min/1.73 m2) Lab Interpretation (test code = 03101-8) Abnormal [facility] TaylorLipase, Ktcko0574-61-03 23:12:53* Test Item Value Reference Range Interpretation Comme nts LIPASE (test code = 9900519123) 104 U/L 0-220 Lab Interpretation (test cod e = 09314-3) Normal [facility] TaylorPOCT Jjxs4016-87-25 23:01:00* Test Item Value Reference Range Interpretation Comme nts POCT PREG (test code = 1605) Negative On board controls acceptable with C Line (test code = 3574) Yes POCT PREG LOT # (test code = 3575) [id number] POCT PREG TEST DATE ( test code = 3576) Lab Interpretation (test cod e = 55248-6) Normal [facility] with Rebokozvnjjg9510-47-33 23:00:31* Test Item Value Reference Range Interpretation [...] 33.0 g/dL 31.6-35.1 RDW-SD (test code = 86311-5) 45.5 fL 39.0-49.9 RDW-CV (test code = 788-0) 15.3 % 12.0-15.5 PLT (test code = 777-3) 370 166-358 H MPV (test code = 47540-4) 9.3 fL 9.5-12.9 L NRBC/100 WBC (test code = 2604377113) 0.0 0.0-10.0 NRBC x10^3 (test code = 3414814401) See_Comment [Automated messa ge] The system which generated this result transmitted reference range: 10*3/?L. The reference range was not used to interpret this result as normal/abnormal. GRAN MAT (NEUT) % (test code = 770-8) 71.8 % IMM GRAN % (test code = 8328031887) 0.60 % LYMPH % (test code = 736-9) 20.9 % MONO % (test code = 5905-5) 4.9 % EOS % (test code = 713-8) 1.4 % BASO % (test code = 706-2) 0.4 % GRAN MAT x10^3(ANC) (test code = 9721684521) 9.75 10*3/uL 1.88-7.09 H IMM GRAN x10^3 (test code = 6827859164) 0.08 10*3/uL 0.00-0.06 H LYMPH x10^3 (test code = 731-0) 2.83 10*3/uL 1.32-3.29 MONO x10^3 (test code = 742-7) 0.66 10*3/uL 0.33-0.92 EOS x10^3 (test code = 711-2) 0.19 10*3/uL 0.03-0.39 BASO x10^3 (test code = 704-7) 0.05 10*3/uL 0.01-0.07 Lab Interpretation (test code = 34945-2) Abnormal [facility] Taylor[facility] ABDOMEN PELVIS W GXJHLLYA3291-68-64 05:07:16ORDERING PHYSICIAN:OLIVIA MUSA CLINICAL INFORMATION: ? Abdominal [...] There are nosuspicious focal osseous lesions.[facility] Complete Metabolic Jnjcr9448-19-45 04:38:59* Test Item Value Reference Range Interpretation Comme nts NA (test code = 1156685142) 138 mmol/L 135-145 K (test code = 9969173138) 3.7 mmol/L 3.5-5.0 CL (test code = 2134465949) 108 mmol/L 98-108 CO2 TOTAL (test code = 0175774533) 22 mmol/L 23-31 L AGAP (test code = 6753156293) 8 2-16 BUN (test code = 2574419476) 12 mg/dL 7-23 GLUCOSE (test code = 7993057260) 98 mg/dL 70-110 CREATININE (test code = 2160-0) 0.62 mg/dL 0.50-1.04 TOTAL BILI (test code = 3944919569) 0.4 mg/dL 0.1-1.1 CALCIUM (test code = 3858578915) 8.9 mg/dL 8.6-10.6 T PROTEIN (test code = 2726474063) 7.1 g/dL 6.3-8.2 ALBUMIN (test code = 3986109477) 3.8 g/dL 3.5-5.0 ALK PHOS (test code = 6261422942) 89 U/L 34-122 ALTv (test code = 1742-6) 17 U/L 5-35 AST(SGOT) (test code = 3299238928) 22 U/L 13-40 eGFR (test code = 89978-4) 112.8 mL/min/1.73m2 CKD-EPI eGFR (2020). Assuming creatinine has been stable day-to-day for at least three months, the eGFR indicates Category G1 (>= 90 mL/min/1.73 m2) Lab Interpretation (test code = 28969-0) Abnormal [facility] TaylorLipase, Hcgck5945-77-35 04:38:58* Test Item Value Reference Range Interpretation Comme nts LIPASE (test code = 7953274642) 136 U/L 0-220 Lab Interpretation (test cod e = 76916-8) Normal [facility] TaylorCB with Cirvxulxhuxo7640-68-29 04:19:14* Test Item Value Reference Range Interpretation [...] 32.2 g/dL 31.6-35.1 RDW-SD (test code = 70266-2) 50.2 fL 39.0-49.9 H RDW-CV (test code = 788-0) 17.3 % 12.0-15.5 H PLT (test code = 777-3) 377 166-358 H MPV (test code = 60836-7) 9.4 fL 9.5-12.9 L NRBC/100 WBC (test code = 5550005265) 0.0 0.0-10.0 NRBC x10^3 (test code = 3399102632) See_Comment [Automated messa ge] The system which generated this result transmitted reference range: 10*3/?L. The reference range was not used to interpret this result as normal/abnormal. GRAN MAT (NEUT) % (test code = 770-8) 65.3 % IMM GRAN % (test code = 3781642389) 0.40 % LYMPH % (test code = 736-9) 26.1 % MONO % (test code = 5905-5) 6.2 % EOS % (test code = 713-8) 1.6 % BASO % (test code = 706-2) 0.4 % GRAN MAT x10^3(ANC) (test code = 3077374708) 7.33 10*3/uL 1.88-7.09 H IMM GRAN x10^3 (test code = 8939805102) 0.04 10*3/uL 0.00-0.06 LYMPH x10^3 (test code = 731-0) 2.93 10*3/uL 1.32-3.29 MONO x10^3 (test code = 742-7) 0.70 10*3/uL 0.33-0.92 EOS x10^3 (test code = 711-2) 0.18 10*3/uL 0.03-0.39 BASO x10^3 (test code = 704-7) 0.05 10*3/uL 0.01-0.07 Lab Interpretation (test code = 28480-0) Abnormal [facility] TaylorPOAR RTUI3908-81-39 03:40:00* Test Item Value Reference Range Interpretation Comme nts POCT PREG (test code = 1605) Negative On board controls acceptable with C Line (test code = 3574) Yes POCT PREG LOT # (test code = 3575) [id number] POCT PREG TEST DATE ( test code = 3576) 2024-10-13 Lab Interpretation (test cod e = 28811-7) Normal [facility] TaylorXR [id number] 04:35:04Ordering physician: ROBERTO RICHARDS INDICATION: Abdominal pain COMPARISON: CT of the abdomen and pelv is dated 03/09/2023 FINDINGS: Supine AP view of the abdomen and pelvis. There is no bowelobstruction or generalized constipation.[facility] Noir4227-18-14 02:30:00* Test Item Value Reference Range Interpretation Comme nts POCT PREG (test code = 1605) Negative On board controls acceptable with C Line (test code = 3574) Yes POCT PREG LOT # (test code = 3575) [id number] POCT PREG TEST DATE ( test code = 3576) 2024-09-15 Lab Interpretation (test cod e = 44291-3) Normal [facility] TaylorCBC WITH QFOU7378-07-68 00:05:06* Test Item Value Reference Range Interpretation [...] 34.2 g/dL 31.6-35.1 RDW-SD (test code = 24313-3) 41.5 fL 39.0-49.9 RDW-CV (test code = 788-0) 14.5 % 12.0-15.5 PLT (test code = 777-3) 384 See_Comment H [Automated messa ge] The system which generated this result transmitted reference range: 166 - 358 10*3/?L. The reference range was not used to interpret this result as normal/abnormal. MPV (test code = 33886-0) 9.6 fL 9.5-12.9 GRAN MAT (NEUT) % (test code = 770-8) 66.0 % IMM GRAN % (test code = 3117192437) 0.50 % LYMPH % (test code = 736-9) 27.4 % MONO % (test code = 5905-5) 4.6 % EOS % (test code = 713-8) 1.1 % BASO % (test code = 706-2) 0.4 % GRAN MAT x10^3(ANC) (test code = 8894308393) 7.96 10*3/uL 1.88-7.09 H IMM GRAN x10^3 (test code = 0442192204) 0.06 10*3/uL 0.00-0.06 LYMPH x10^3 (test code = 731-0) 3.30 10*3/uL 1.32-3.29 H MONO x10^3 (test code = 742-7) 0.56 10*3/uL 0.33-0.92 EOS x10^3 (test code = 711-2) 0.13 10*3/uL 0.03-0.39 BASO x10^3 (test code = 704-7) 0.05 10*3/uL 0.01-0.07 Lab Interpretation (test code = 43993-6) Abnormal [facility] Taylor[facility]. METABOLIC PANEL (41819)2023-05-09 23:27:13* Test Item Value Reference Range Interpretation Comme nts NA (test code = 4459969052) 137 mmol/L 135-145 K (test code = 2395458754) 3.3 mmol/L 3.5-5.0 L CL (test code = 1625383556) 103 mmol/L 98-108 CO2 TOTAL (test code = 2985182993) 20 mmol/L 23-31 L AGAP (test code = 5692681545) 14 2-16 BUN (test code = 7816015212) 5 mg/dL 7-23 L GLUCOSE (test code = 6544762372) 146 mg/dL 70-110 H CREATININE (test code = 1538862397) 0.60 mg/dL 0.50-1.04 TOTAL BILI (test code = 3758551027) 0.3 mg/dL 0.1-1.1 CALCIUM (test code = 0232373197) 9.3 mg/dL 8.6-10.6 T PROTEIN (test code = 3014685158) 7.9 g/dL 6.3-8.2 ALBUMIN (test code = 3652437215) 4.4 g/dL 3.5-5.0 ALK PHOS (test code = 5252299061) 105 U/L 34-122 ALTv (test code = 1742-6) 38 U/L 5-35 H AST(SGOT) (test code = 9943089429) 21 U/L 13-40 eGFR (test code = 58063-4) 113.7 mL/min/1.73m2 CKD-EPI eGFR (2020). Assuming creatinine has been stable day-to-day for at least three months, the eGFR indicates Category G1 (>= 90 mL/min/1.73 m2) Lab Interpretation (test code = 19813-1) [facility] 23[facility]27:13* Test Item Value Reference Range Interpretation Comme nts LIPASE (test code = 8499823538) 142 U/L 0-220 Lab Interpretation (test cod e = 88885-6) Normal [facility]. METABOLIC PANEL (54960)2023-04-30 23:41:47* Test Item Value Reference Range Interpretation Comme nts NA (test code = 3738472621) 139 mmol/L 135-145 K (test code = 1513060037) 3.3 mmol/L 3.5-5.0 L CL (test code = 6445680816) 105 mmol/L 98-108 CO2 TOTAL (test code = 4119889377) 20 mmol/L 23-31 L AGAP (test code = 5537629982) 14 2-16 BUN (test code = 6241752559) 6 mg/dL 7-23 L GLUCOSE (test code = 1846167448) 119 mg/dL 70-110 H CREATININE (test code = 4076591481) 0.59 mg/dL 0.50-1.04 TOTAL BILI (test code = 1116031490) 0.3 mg/dL 0.1-1.1 CALCIUM (test code = 0546695107) 9.7 mg/dL 8.6-10.6 T PROTEIN (test code = 8055004895) 7.6 g/dL 6.3-8.2 ALBUMIN (test code = 0675778505) 4.2 g/dL 3.5-5.0 ALK PHOS (test code = 4368607021) 78 U/L 34-122 ALTv (test code = 1742-6) 24 U/L 5-35 AST(SGOT) (test code = 4105031350) 24 U/L 13-40 eGFR (test code = 9911378580) 110.7 mL/min/1.73m2 DARWIN (test code = DARWIN) [...] imaging tests). Lab Interpretation (test code = 15376-1) Abnormal [facility] WITH [id number] 23:29:07* Test Item Value Reference Range Interpretation Comme nts WBC (test code = 6690-2) 11.56 See_Comment H [Automated [employer]] The system which generated this result transmitted reference range: 4.30 - 11.10 10*3/?L. The reference range was not used to interpret this result as normal/abnormal. RBC (test code = 789-8) 5.02 See_Comment [Automated [employer]] The system which generated this result transmitted [...] 33.7 g/dL 31.6-35.1 RDW-SD (test code = 44828-5) 41.5 fL 39.0-49.9 RDW-CV (test code = 788-0) 14.3 % 12.0-15.5 PLT (test code = 777-3) 335 See_Comment [Automated messa ge] The system which generated this result transmitted reference range: 166 - 358 10*3/?L. The reference range was not used to interpret this result as normal/abnormal. MPV (test code = 45003-4) 9.7 fL 9.5-12.9 NRBC/100 WBC (test code = 5714101852) 0.0 See_Comment [Automated [employer]age] The system which generated this result transmitted reference range: 0.0 - 10.0 /100 WBCs. The reference range was not used to interpret this result as normal/abnormal. NRBC x10^3 (test code = 8436283609) See_Comment [Automated messa ge] The system which generated this result transmitted reference range: 10*3/?L. The reference range was not used to interpret this result as normal/abnormal. GRAN MAT (NEUT) % (test code = 770-8) 65.7 % IMM GRAN % (test code = 4356010836) 0.50 % LYMPH % (test code = 736-9) 25.4 % MONO % (test code = 5905-5) 6.7 % EOS % (test code = 713-8) 1.2 % BASO % (test code = 706-2) 0.5 % GRAN MAT x10^3(ANC) (test code = 4891458838) 7.59 10*3/uL 1.88-7.09 H IMM GRAN x10^3 (test code = 0451390625) 0.06 10*3/uL 0.00-0.06 LYMPH x10^3 (test code = 731-0) 2.94 10*3/uL 1.32-3.29 MONO x10^3 (test code = 742-7) 0.77 10*3/uL 0.33-0.92 EOS x10^3 (test code = 711-2) 0.14 10*3/uL 0.03-0.39 BASO x10^3 (test code = 704-7) 0.06 10*3/uL 0.01-0.07 Lab Interpretation (test code = 43778-1) Abnormal [facility] [id number] 22:59:00* Test Item Value Reference Range Interpretation Comme nts POCT PREG (test code = 1605) Negative On board controls acceptable with C Line (test code = 3574) Yes POCT PREG LOT # (test code = 3575) [id number] POCT PREG TEST DATE ( test code = 3576) 07/10/2024 Lab Interpretation (test cod e = 64948-9) [facility] [id number] 02:36:34* Test Item Value Reference Range Interpretation Comme nts TROPONIN I (test code = 0440733624) 0.000 ng/mL <=0.034 DARWIN (test code = [...] of biotin. Lab Interpretation (test code = 50336-1) [facility] [id number] 02:34:17* Test Item Value Reference Range Interpretation Comme [facility] NT-proBNP (test code = 63844-8) 40 pg/mL <=125 Lab Interpretation (test cod e = 67641-7) Normal [facility] THRMPLAS [id number] 02:33:37* Test Item Value Reference Range Interpretation Comme nts APTT Patient (test code = 3173-2) 25 See_Comment [Automated message] The system which generated this result transmitted reference range: 23 - 38 Seconds. The reference range was not used to interpret this result as normal/abnormal. DARWIN (test code = DARWIN) The [facility] patient population mean normal value for aPTT is 30 seconds. Lab Interpretation (test code = 45042-6) Normal [facility] TaylorPROTHROM[facility] TIME / [id number] 02:31:36* Test Item Value Reference Range Interpretation Comme [facility] PROTIME PATIENT (test code = 5964-2) 12.6 See_Comment [Automated shoppa ge] The system which generated this result transmitted reference range: 12.0 - 14.7 Seconds. The reference range was not used to interpret this result as normal/abnormal. INR (test code = 6301-6) 1.0 Normal INR <1.1; Warfarin Therapeutic range 2.0 to 3.0 or 2.5 to 3.5, depending upon the indications. Lab Interpretation (test code = 89313-8) Normal [facility]. METABOLIC PANEL (85687)2023-04-17 02:24:56* Test Item Value Reference Range Interpretation Comme [facility] NA (test code = 0798320337) 142 mmol/L 135-145 K (test code = 7686432756) 3.1 mmol/L 3.5-5.0 L CL (test code = 7919913407) 108 mmol/L 98-108 CO2 TOTAL (test code = 3389138937) 20 mmol/L 23-31 L AGAP (test code = 1552686494) 14 2-16 BUN (test code = 6301523139) 4 mg/dL 7-23 L GLUCOSE (test code = 0533066712) 107 mg/dL 70-110 CREATININE (test code = 9424383152) 0.61 mg/dL 0.50-1.04 TOTAL BILI (test code = 9787419588) 0.2 mg/dL 0.1-1.1 CALCIUM (test code = 8847633205) 9.1 mg/dL 8.6-10.6 T PROTEIN (test code = 1994151288) 7.0 g/dL 6.3-8.2 ALBUMIN (test code = 1484183045) 3.9 g/dL 3.5-5.0 ALK PHOS (test code = 3515685960) 69 U/L 34-122 ALTv (test code = 1742-6) 21 U/L 5-35 AST(SGOT) (test code = 1134913562) 21 U/L 13-40 eGFR (test code = 4718927039) 106.5 mL/min/1.73m2 DARWIN (test code = DARWIN) [...] imaging tests). Lab Interpretation (test code = 99144-2) [facility] 02:24:56* Test Item Value Reference Range Interpretation Comme nts LIPASE (test code = 4723609283) 104 U/L 0-220 Lab Interpretation (test cod e = 88025-3) [facility] WITH [id number] 02:13:31* Test Item Value Reference Range Interpretation Comme nts WBC (test code = 6690-2) 10.74 See_Comment [Automated [employer]] The system which generated this result transmitted reference range: 4.30 - 11.10 10*3/?L. The reference range was not used to interpret this result as normal/abnormal. RBC (test code = 789-8) 4.75 See_Comment [Automated [employer]] The system which generated this result transmitted [...] 34.5 g/dL 31.6-35.1 RDW-SD (test code = 16629-4) 39.1 fL 39.0-49.9 RDW-CV (test code = 788-0) 13.5 % 12.0-15.5 PLT (test code = 777-3) 324 See_Comment [Automated messa ge] The system which generated this result transmitted reference range: 166 - 358 10*3/?L. The reference range was not used to interpret this result as normal/abnormal. MPV (test code = 90023-4) 9.3 fL 9.5-12.9 L NRBC/100 WBC (test code = 2819428172) 0.0 See_Comment [Automated [employer] ssage] The system which generated this result transmitted reference range: 0.0 - 10.0 /100 WBCs. The reference range was not used to interpret this result as normal/abnormal. NRBC x10^3 (test code = 5275022800) See_Comment [Automated messa ge] The system which generated this result transmitted reference range: 10*3/?L. The reference range was not used to interpret this result as normal/abnormal. GRAN MAT (NEUT) % (test code = 770-8) 65.2 % IMM GRAN % (test code = 5829099450) 0.40 % LYMPH % (test code = 736-9) 26.5 % MONO % (test code = 5905-5) 5.8 % EOS % (test code = 713-8) 1.7 % BASO % (test code = 706-2) 0.4 % GRAN MAT x10^3(ANC) (test code = 1010697454) 7.01 10*3/uL 1.88-7.09 IMM GRAN x10^3 (test code = 1079823160) 0.04 10*3/uL 0.00-0.06 LYMPH x10^3 (test code = 731-0) 2.85 10*3/uL 1.32-3.29 MONO x10^3 (test code = 742-7) 0.62 10*3/uL 0.33-0.92 EOS x10^3 (test code = 711-2) 0.18 10*3/uL 0.03-0.39 BASO x10^3 (test code = 704-7) 0.04 10*3/uL 0.01-0.07 Lab Interpretation (test code = 77274-4) [facility] [id number] 02:11:00* Test Item Value Reference Range Interpretation Comme nts POCT PREG (test code = 1605) Negative On board controls acceptable with C Line (test code = 3574) Yes POCT PREG LOT # (test code = 3575) [id number] POCT PREG TEST DATE ( test code = 3576) 2024-09-04 Lab Interpretation (test cod e = 35304-6) [facility] TaylorTROP[facility] [id number] 23:59:14* Test Item Value Reference Range Interpretation Comme nts TROPONIN I (test code = 2896556514) 0.000 ng/mL <=0.034 DARWIN (test code = [...] of biotin. Lab Interpretation (test code = 50902-6) [facility] METABOLIC PANEL (75764)2023-04-08 23:47:52* Test Item Value Reference Range Interpretation Comme nts NA (test code = 5346713421) 138 mmol/L 135-145 K (test code = 2043745683) 3.4 mmol/L 3.5-5.0 L CL (test code = 8129862964) 103 mmol/L 98-108 CO2 TOTAL (test code = 0698216165) 22 mmol/L 23-31 L AGAP (test code = 3526560495) 13 2-16 BUN (test code = 0151766161) 6 mg/dL 7-23 L GLUCOSE (test code = 7526492424) 106 mg/dL 70-110 CREATININE (test code = 5129728170) 0.91 mg/dL 0.50-1.04 TOTAL BILI (test code = 8670418836) 0.2 mg/dL 0.1-1.1 CALCIUM (test code = 3855042626) 8.7 mg/dL 8.6-10.6 T PROTEIN (test code = 8190060096) 7.4 g/dL 6.3-8.2 ALBUMIN (test code = 9402020960) 4.1 g/dL 3.5-5.0 ALK PHOS (test code = 6329563123) 71 U/L 34-122 ALTv (test code = 1742-6) 28 U/L 5-35 AST(SGOT) (test code = 1884536158) 28 U/L 13-40 eGFR (test code = 7166621486) 67.2 mL/min/1.73m2 DARWIN (test code = DARWIN) [...] imaging tests). Lab Interpretation (test code = 77615-5) [facility]normal [facility]23-[facility]-02 23:47:52* Test Item Value Reference Range Interpretation Comme nts MAGNESIUM (test code = 0363509608) 2.0 mg/dL 1.7-2.4 Lab Interpretation (test cod e = 07061-9) [facility] 23:47:52* Test Item Value Reference Range Interpretation Comme nts LIPASE (test code = 0695403432) 74 U/L 0-220 Lab Interpretation (test cod e = 30369-8) [facility] WITH [id number] 23:36:30* Test Item Value Reference Range Interpretation Comme nts WBC (test code = 6690-2) 9.95 See_Comment [Automated [employer]] The system which generated this result transmitted reference range: 4.30 - 11.10 10*3/?L. The reference range was not used to interpret this result as normal/abnormal. RBC (test code = 789-8) 5.29 See_Comment H [Automated [employer]] The system which generated this result transmitted [...] 34.5 g/dL 31.6-35.1 RDW-SD (test code = 62610-0) 39.3 fL 39.0-49.9 RDW-CV (test code = 788-0) 13.6 % 12.0-15.5 PLT (test code = 777-3) 305 See_Comment [Automated shoppa ge] The system which generated this result transmitted reference range: 166 - 358 10*3/?L. The reference range was not used to interpret this result as normal/abnormal. MPV (test code = 22572-2) 9.6 fL 9.5-12.9 NRBC/100 WBC (test code = 7270650651) 0.0 See_Comment [Automated [employer] ssage] The system which generated this result transmitted reference range: 0.0 - 10.0 /100 WBCs. The reference range was not used to interpret this result as normal/abnormal. NRBC x10^3 (test code = 0728903379) See_Comment [Automated shoppa ge] The system which generated this result transmitted reference range: 10*3/?L. The reference range was not used to interpret this result as normal/abnormal. GRAN MAT (NEUT) % (test code = 770-8) 66.5 % IMM GRAN % (test code = 5543292548) 0.30 % LYMPH % (test code = 736-9) 25.3 % MONO % (test code = 5905-5) 5.2 % EOS % (test code = 713-8) 2.3 % BASO % (test code = 706-2) 0.4 % GRAN MAT x10^3(ANC) (test code = 9249326053) 6.61 10*3/uL 1.88-7.09 IMM GRAN x10^3 (test code = 1113645700) 0.03 10*3/uL 0.00-0.06 LYMPH x10^3 (test code = 731-0) 2.52 10*3/uL 1.32-3.29 MONO x10^3 (test code = 742-7) 0.52 10*3/uL 0.33-0.92 EOS x10^3 (test code = 711-2) 0.23 10*3/uL 0.03-0.39 BASO x10^3 (test code = 704-7) 0.04 10*3/uL 0.01-0.07 Lab Interpretation (test code = 13982-0) Abnormal [facility] [id number] 02:51:00* Test Item Value Reference Range Interpretation Comme nts POCT PREG (test code = 1605) Negative On board controls acceptable with C Line (test code = 3574) Yes POCT PREG LOT # (test code = 3575) [id number] POCT PREG TEST DATE ( test code = 3576) 07/10/2024 Lab Interpretation (test cod e = 79226-3) Normal [facility] [id number] 03:26:00* Test Item Value Reference Range Interpretation Comme nts POCT PREG (test code = 1605) Negative On board controls acceptable with C Line (test code = 3574) Yes POCT PREG LOT # (test code = 3575) [id number] POCT PREG TEST DATE ( test code = 3576) Lab Interpretation (test cod e = 38219-8) [facility]23-[facility]11 22:35:38* Test Item Value Reference Range Interpretation Comme nts LIPASE (test code = 0214391485) 2049 U/L 0-220 H Lab Interpretation (test cod e = 47924-7) Abnormal [facility] WITH [id number] 22:30:10* Test Item Value Reference Range Interpretation [...] 34.6 g/dL 31.6-35.1 RDW-SD (test code = 48766-8) 42.7 fL 39.0-49.9 RDW-CV (test code = 788-0) 14.6 % 12.0-15.5 PLT (test code = 777-3) 331 See_Comment [Automated shoppa ge] The system which generated this result transmitted reference range: 166 - 358 10*3/?L. The reference range was not used to interpret this result as normal/abnormal. MPV (test code = 40518-8) 9.7 fL 9.5-12.9 NRBC/100 WBC (test code = 0053698680) 0.0 See_Comment [Automated [employer]] The system which generated this result transmitted reference range: 0.0 - 10.0 /100 WBCs. The reference range was not used to interpret this result as normal/abnormal. NRBC x10^3 (test code = 4103791803) See_Comment [Automated shoppa ge] The system which generated this result transmitted reference range: 10*3/?L. The reference range was not used to interpret this result as normal/abnormal. GRAN MAT (NEUT) % (test code = 770-8) 65.7 % IMM GRAN % (test code = 9637127094) 0.50 % LYMPH % (test code = 736-9) 26.5 % MONO % (test code = 5905-5) 5.4 % EOS % (test code = 713-8) 1.5 % BASO % (test code = 706-2) 0.4 % GRAN MAT x10^3(ANC) (test code = 1904366024) 8.05 10*3/uL 1.88-7.09 H IMM GRAN x10^3 (test code = 4403201627) 0.06 10*3/uL 0.00-0.06 LYMPH x10^3 (test code = 731-0) 3.24 10*3/uL 1.32-3.29 MONO x10^3 (test code = 742-7) 0.66 10*3/uL 0.33-0.92 EOS x10^3 (test code = 711-2) 0.18 10*3/uL 0.03-0.39 BASO x10^3 (test code = 704-7) 0.05 10*3/uL 0.01-0.07 Lab Interpretation (test code = 80658-8) [facility] METABOLIC PANEL (42901)2023-02-15 22:27:47* Test Item Value Reference Range Interpretation Comme nts NA (test code = 5744149929) 138 mmol/L 135-145 K (test code = 0172894273) 3.7 mmol/L 3.5-5.0 CL (test code = 4304000225) 105 mmol/L 98-108 CO2 TOTAL (test code = 9483447336) 23 mmol/L 23-31 AGAP (test code = 4719556575) 10 2-16 BUN (test code = 7265246050) 6 mg/dL 7-23 L GLUCOSE (test code = 8758401837) 92 mg/dL 70-110 CREATININE (test code = 5262459935) 0.77 mg/dL 0.50-1.04 TOTAL BILI (test code = 5101943556) 0.7 mg/dL 0.1-1.1 CALCIUM (test code = 8752137198) 9.0 mg/dL 8.6-10.6 T PROTEIN (test code = 9579842677) 7.5 g/dL 6.3-8.2 ALBUMIN (test code = 5747844322) 4.0 g/dL 3.5-5.0 ALK PHOS (test code = 3453878846) 101 U/L 34-122 ALTv (test code = 1742-6) 25 U/L 5-35 AST(SGOT) (test code = 1398470689) 36 U/L 13-40 eGFR (test code = 3103288302) 81.8 mL/min/1.73m2 DARWIN (test code = DARWIN) [...] imaging tests). Lab Interpretation (test code = 71852-4) [facility] TaylorD-[id number] 20:56:28* Test Item Value Reference Range Interpretation Comments D-DIMER (test code = 0810562690) 0.44 See_Comment H [Automated message] The system [...] a diagnosis. Lab Interpretation (test code = 38265-9) Abnormal [facility] [id number] 01:15:16* Test Item Value Reference Range Interpretation Comments TROPONIN I (test code = 0547118684) 0.001 ng/mL See_Comment [Automated message] The system [...] of biotin. Lab Interpretation (test code = 05366-2) Normal [facility] [id number] 22:52:31* Test Item Value Reference Range Interpretation Comments TROPONIN I (test code = 0078037203) 0.001 ng/mL See_Comment [Automated message] The system [...] of biotin. Lab Interpretation (test code = 34254-5) [facility] [id number] 22:49:33* Test Item Value Reference Range Interpretation Comme nts NT-proBNP (test code = 0603121349) 145 pg/mL See_Comment H [Automated message] The system which generated this result transmitted reference range: <=125. The reference range was not used to interpret this result as normal/abnormal. DARWIN (test code = DARWIN) Biotin has been reported to cause a negative bias, interpret results relative to patient's use of biotin. Lab Interpretation (test code = 44937-4) [facility]OL[facility] (NA, K, CL, CO2, GLUCOSE, BUN, CREATININE, CA)2022-01-09 22:40:32* Test Item Value Reference Range Interpretation Comme nts NA (test code = 8421224029) 142 mmol/L 135-145 K (test code = 1215052327) 3.3 mmol/L 3.5-5.0 L CL (test code = 8747110687) 109 mmol/L 98-108 H CO2 TOTAL (test code = 2477021370) 22 mmol/L 23-31 L AGAP (test code = 1715841443) 2-16 BUN (test code = 9392822961) 9 mg/dL 7-23 GLUCOSE (test code = 4135888064) 116 mg/dL 70-110 H CREATININE (test code = 3240892738) 0.69 mg/dL 0.50-1.04 CALCIUM (test code = 5046737735) 9.2 mg/dL 8.6-10.6 eGFR (test code = 1322701984) mL/min/1.73m2 DARWIN (test code = DARWIN) Association [...] imaging tests). Lab Interpretation (test code = 68391-4) Abnormal [facility] WITH [id number] 22:29:09* Test Item Value Reference Range Interpretation Comme nts WBC (test code = 6690-2) See_Comment [Automated [employer]] The system which generated this result transmitted reference range: 4.30 - 11.10 10*3/?L. The reference range was not used to interpret this result as normal/abnormal. RBC (test code = 789-8) See_Comment [[employer]] The system which generated this result transmitted [...] 34.4 g/dL 31.6-35.1 RDW-SD (test code = 33303-1) 40.7 fL 39.0-49.9 RDW-CV (test code = 788-0) 14.1 % 12.0-15.5 PLT (test code = 777-3) See_Comment [Automated messa ge] The system which generated this result transmitted reference range: 166 - 358 10*3/?L. The reference range was not used to interpret this result as normal/abnormal. MPV (test code = 50302-6) 9.6 fL 9.5-12.9 NRBC/100 WBC (test code = 7765191086) See_Comment [Automated [employer]] The system which generated this result transmitted reference range: 0.0 - 10.0 /100 WBCs. The reference range was not used to interpret this result as normal/abnormal. NRBC x10^3 (test code = 5470622036) <0.01 See_Comment [Automated messa ge] The system which generated this result transmitted reference range: 10*3/?L. The reference range was not used to interpret this result as normal/abnormal. GRAN MAT (NEUT) % (test code = 770-8) 54.7 % IMM GRAN % (test code = 1994517901) 0.40 % LYMPH % (test code = 736-9) 33.8 % MONO % (test code = 5905-5) 7.1 % EOS % (test code = 713-8) 3.3 % BASO % (test code = 706-2) 0.7 % GRAN MAT x10^3(ANC) (test code = 0608481710) 4.87 10*3/uL 1.88-7.09 IMM GRAN x10^3 (test code = 3214688648) 0.04 10*3/uL 0.00-0.06 LYMPH x10^3 (test code = 731-0) 3.01 10*3/uL 1.32-3.29 MONO x10^3 (test code = 742-7) 0.63 10*3/uL 0.33-0.92 EOS x10^3 (test code = 711-2) 0.29 10*3/uL 0.03-0.39 BASO x10^3 (test code = 704-7) 0.06 10*3/uL 0.01-0.07 Lab Interpretation (test code = 10209-3) Abnormal [facility] [id number] 06:45:45* Test Item Value Reference Range Interpretation Comments TROPONIN I (test code = 8609091378) 0.000 ng/mL See_Comment [Automated message] The system [...] of biotin. Lab Interpretation (test code = 51192-5) [facility] [id number] 05:00:55 * Test Item Value Reference Range Interpretation Comme nts TSH (test code = 1663971637) See_Comment [Automated [employer]] The system which generated this result transmitted reference range: 0.45 - 4.70 mIU/L. The reference range was not used to interpret this result as normal/abnormal. Lab Interpretation (test code = 06809-1) Normal [facility] [id number] 04:47:50* Test Item Value Reference Range Interpretation Comme nts FREE T4 (test code = 8886260653) See_Comment [Automated [employer]] The system which generated this result transmitted reference range: 0.78 - 2.20 ng/dL:. The reference range was not used to interpret this result as normal/abnormal. Lab Interpretation (test code = 51154-7) Normal [facility] [id number] 04:47:10* Test Item Value Reference Range Interpretation Comme nts FREE T3 (test code = 6213860259) 4.37 pg/mL 2.77-5.27 Lab Interpretation (test cod e = 00516-3) Normal [facility] [id number] 04:42:07* Test Item Value Reference Range Interpretation Comments TROPONIN I (test code = 7622291194) 0.001 ng/mL See_Comment [Automated message] The system [...] of biotin. Lab Interpretation (test code = 33442-2) Normal [facility]. METABOLIC PANEL (67253)2021-12-14 04:30:28* Test Item Value Reference Range Interpretation Comme nts NA (test code = 8180925015) 141 mmol/L 135-145 K (test code = 0008692448) 3.6 mmol/L 3.5-5.0 CL (test code = 7563029650) 111 mmol/L 98-108 H CO2 TOTAL (test code = 6737206659) 19 mmol/L 23-31 L AGAP (test code = 5657746732) 2-16 BUN (test code = 6323995174) 15 mg/dL 7-23 GLUCOSE (test code = 8174613638) 113 mg/dL 70-110 H CREATININE (test code = 4581108657) 1.05 mg/dL 0.50-1.04 H TOTAL BILI (test code = 6652443310) 0.2 mg/dL 0.1-1.1 CALCIUM (test code = 7060428113) 9.8 mg/dL 8.6-10.6 T PROTEIN (test code = 8173671491) 6.8 g/dL 6.3-8.2 ALBUMIN (test code = 3506846736) 4.2 g/dL 3.5-5.0 ALK PHOS (test code = 4031946248) 73 U/L 34-122 ALTv (test code = 1742-6) 16 U/L 5-35 AST(SGOT) (test code = 4920911412) 19 U/L 13-40 eGFR (test code = 5458164741) mL/min/1.73m2 DARWIN (test code = DARWIN) Association [...] imaging tests). Lab Interpretation (test code = 38346-1) [facility]* Test Item Value Reference Range Interpretation Comme [facility] LIPASE (test code = 3216853417) 225 U/L 0-220 H Lab Interpretation (test cod e = 65245-0) [facility] [id number] 04:20:00* Test Item Value Reference Range Interpretation Comme [facility] POCT PREG (test code = 1605) negative On board controls acceptable with C Line (test code = 3574) present POCT PREG LOT # (test code = 3575) [id number] POCT PREG TEST DATE ( test code = 3576) 2023-05-07 Lab Interpretation (test cod e = 04021-0) Normal [facility] WITH [id number] 04:01:25* Test Item Value Reference Range Interpretation [...] 34.3 g/dL 31.6-35.1 RDW-SD (test code = 29142-1) 39.5 fL 39.0-49.9 RDW-CV (test code = 788-0) 13.6 % 12.0-15.5 PLT (test code = 777-3) See_Comment [Automated messa ge] The system which generated this result transmitted reference range: 166 - 358 10*3/?L. The reference range was not used to interpret this result as normal/abnormal. MPV (test code = 03256-7) 9.9 fL 9.5-12.9 NRBC/100 WBC (test code = 2380667688) See_Comment [Automated [employer] ssage] The system which generated this result transmitted reference range: 0.0 - 10.0 /100 WBCs. The reference range was not used to interpret this result as normal/abnormal. NRBC x10^3 (test code = 6443762235) <0.01 See_Comment [Automated messa ge] The system which generated this result transmitted reference range: 10*3/?L. The reference range was not used to interpret this result as normal/abnormal. GRAN MAT (NEUT) % (test code = 770-8) 51.5 % IMM GRAN % (test code = 1812645275) 0.50 % LYMPH % (test code = 736-9) 35.8 % MONO % (test code = 5905-5) 9.4 % EOS % (test code = 713-8) 2.2 % BASO % (test code = 706-2) 0.6 % GRAN MAT x10^3(ANC) (test code = 0566888061) 5.37 10*3/uL 1.88-7.09 IMM GRAN x10^3 (test code = 8976869653) 0.05 10*3/uL 0.00-0.06 LYMPH x10^3 (test code = 731-0) 3.73 10*3/uL 1.32-3.29 H MONO x10^3 (test code = 742-7) 0.98 10*3/uL 0.33-0.92 H EOS x10^3 (test code = 711-2) 0.23 10*3/uL 0.03-0.39 BASO x10^3 (test code = 704-7) 0.06 10*3/uL 0.01-0.07 Lab Interpretation (test code = 56846-9) Abnormal [facility] [id number] 04:04:13* Test Item Value Reference Range Interpretation Comments TROPONIN I (test code = 4566690299) 0.001 ng/mL See_Comment [Automated message] The system [...] of biotin. Lab Interpretation (test code = 18354-6) [facility] [id number] 02:56:00* Test Item Value Reference Range Interpretation Comme nts POCT PREG (test code = 1605) negative On board controls acceptable with C Line (test code = 3574) present POCT PREG LOT # (test code = 3575) [id number] POCT PREG TEST DATE ( test code = 3576) 2023-04-06 Lab Interpretation (test cod e = 17163-5) [facility] [id number] 02:15:30* Test Item Value Reference Range Interpretation Comments TROPONIN I (test code = 1434212017) 0.000 ng/mL See_Comment [Automated message] The system [...] of biotin. Lab Interpretation (test code = 16791-3) [facility] [id number] 02:12:14* Test Item Value Reference Range Interpretation Comme nts NT-proBNP (test code = 2500622999) 109 pg/mL See_Comment [Automated message] The system which generated this result transmitted reference range: <=125. The reference range was not used to interpret this result as normal/abnormal. DARWIN (test code = DARWIN) Biotin has been reported to cause a negative bias, interpret results relative to patient's use of biotin. Lab Interpretation (test code = 96895-5) Normal [facility]. METABOLIC PANEL (28865)2021-11-12 02:04:12* Test Item Value Reference Range Interpretation Comme nts NA (test code = 2102732637) 140 mmol/L 135-145 K (test code = 3796853500) 4.0 mmol/L 3.5-5.0 CL (test code = 2788361631) 111 mmol/L 98-108 H CO2 TOTAL (test code = 4787681460) 17 mmol/L 23-31 L AGAP (test code = 4411080138) 2-16 BUN (test code = 2004485928) 9 mg/dL 7-23 GLUCOSE (test code = 5140967551) 105 mg/dL 70-110 CREATININE (test code = 2021404839) 0.72 mg/dL 0.50-1.04 TOTAL BILI (test code = 3364381336) 0.4 mg/dL 0.1-1.1 CALCIUM (test code = 2122591268) 9.3 mg/dL 8.6-10.6 T PROTEIN (test code = 5477412603) 6.6 g/dL 6.3-8.2 ALBUMIN (test code = 6643534065) 4.0 g/dL 3.5-5.0 ALK PHOS (test code = 7700252676) 70 U/L 34-122 ALTv (test code = 1742-6) 19 U/L 5-35 AST(SGOT) (test code = 5107501717) 21 U/L 13-40 eGFR (test code = 5146269644) mL/min/1.73m2 DARWIN (test code = DARWIN) Association [...] imaging tests). Lab Interpretation (test code = 38071-0) [facility]normal [facility] 02:03:32* Test Item Value Reference Range Interpretation Comme nts LIPASE (test code = 7025752578) 173 U/L 0-220 Lab Interpretation (test cod e = 94213-0) Normal [facility] WITH [id number] 01:43:53* Test Item Value Reference Range Interpretation Comme nts WBC (test code = 6690-2) See_Comment [Automated [employer]] The system which generated this result transmitted reference range: 4.30 - 11.10 10*3/?L. The reference range was not used to interpret this result as normal/abnormal. RBC (test code = 789-8) See_Comment [Automated [employer]] The system which generated this result transmitted [...] 33.7 g/dL 31.6-35.1 RDW-SD (test code = 86035-5) 41.3 fL 39.0-49.9 RDW-CV (test code = 788-0) 14.3 % 12.0-15.5 PLT (test code = 777-3) See_Comment [Automated shoppa ge] The system which generated this result transmitted reference range: 166 - 358 10*3/?L. The reference range was not used to interpret this result as normal/abnormal. MPV (test code = 35272-1) 9.7 fL 9.5-12.9 NRBC/100 WBC (test code = 3612296485) See_Comment [Automated [employer] ssage] The system which generated this result transmitted reference range: 0.0 - 10.0 /100 WBCs. The reference range was not used to interpret this result as normal/abnormal. NRBC x10^3 (test code = 1390266134) <0.01 See_Comment [Automated shoppa ge] The system which generated this result transmitted reference range: 10*3/?L. The reference range was not used to interpret this result as normal/abnormal. GRAN MAT (NEUT) % (test code = 770-8) 62.6 % IMM GRAN % (test code = 2587366695) 0.50 % LYMPH % (test code = 736-9) 27.0 % MONO % (test code = 5905-5) 6.5 % EOS % (test code = 713-8) 2.9 % BASO % (test code = 706-2) 0.5 % GRAN MAT x10^3(ANC) (test code = 8265323860) 6.30 10*3/uL 1.88-7.09 IMM GRAN x10^3 (test code = 4116403372) 0.05 10*3/uL 0.00-0.06 LYMPH x10^3 (test code = 731-0) 2.71 10*3/uL 1.32-3.29 MONO x10^3 (test code = 742-7) 0.65 10*3/uL 0.33-0.92 EOS x10^3 (test code = 711-2) 0.29 10*3/uL 0.03-0.39 BASO x10^3 (test code = 704-7) 0.05 10*3/uL 0.01-0.07 Lab Interpretation (test code = 36557-9) [facility] [id number] 02:21:00* Test Item Value Reference Range Interpretation Comme nts POCT PREG (test code = 1605) Negative On board controls acceptable with C Line (test code = 3574) Present Lab Interpretation (test cod e = 73075-6) [facility] Taylor[facility] Metabolic Vhror1573-07-56 02:05:50* Test Item Value Reference Range Interpretation Comme nts NA (test code = 0586311895) 137 mmol/L 135-145 K (test code = 1222993933) 3.9 mmol/L 3.5-5.0 CL (test code = 0690735863) 109 mmol/L 98-108 H CO2 TOTAL (test code = 1081203265) 19 mmol/L 23-31 L AGAP (test code = 9556461729) 2-16 BUN (test code = 6698192897) 10 mg/dL 7-23 GLUCOSE (test code = 8252586183) 101 mg/dL 70-110 CREATININE (test code = 8465399607) 0.80 mg/dL 0.50-1.04 TOTAL BILI (test code = 4568328649) 0.3 mg/dL 0.1-1.1 CALCIUM (test code = 8181905562) 8.8 mg/dL 8.6-10.6 T PROTEIN (test code = 0919915666) 6.6 g/dL 6.3-8.2 ALBUMIN (test code = 0881755637) 4.0 g/dL 3.5-5.0 ALK PHOS (test code = 8475779799) 71 U/L 34-122 ALTv (test code = 1742-6) 18 U/L 5-35 AST(SGOT) (test code = 5456408222) 20 U/L 13-40 eGFR (test code = 7075537931) mL/min/1.73m2 DARWIN (test code = DARWIN) Association [...] imaging tests). Lab Interpretation (test code = 66778-9) Abnormal [facility] TaylorLipase, Ncxea8895-40-52 02:05:25* Test Item Value Reference Range Interpretation Comme nts LIPASE (test code = 5079532339) 96 U/L 0-220 Lab Interpretation (test cod e = 12526-2) Normal [facility] TaylorCB with Kymxabbhgvhx6165-95-09 01:53:06* Test Item Value Reference Range Interpretation Comme nts WBC (test code = 6690-2) See_Comment H [Automated [employer]] The system which generated this result transmitted reference range: 4.30 - 11.10 10*3/?L. The reference range was not used to interpret this result as normal/abnormal. RBC (test code = 789-8) See_Comment H [Automated [employer]] The system which generated this result transmitted [...] 34.3 g/dL 31.6-35.1 RDW-SD (test code = 33624-8) 40.5 fL 39.0-49.9 RDW-CV (test code = 788-0) 14.4 % 12.0-15.5 PLT (test code = 777-3) See_Comment [Automated messa ge] The system which generated this result transmitted reference range: 166 - 358 10*3/?L. The reference range was not used to interpret this result as normal/abnormal. MPV (test code = 46912-7) 9.4 fL 9.5-12.9 L NRBC/100 WBC (test code = 6417908024) See_Comment [Automated [employer] ssage] The system which generated this result transmitted reference range: 0.0 - 10.0 /100 WBCs. The reference range was not used to interpret this result as normal/abnormal. NRBC x10^3 (test code = 9603486459) <0.01 See_Comment [Automated shoppa ge] The system which generated this result transmitted reference range: 10*3/?L. The reference range was not used to interpret this result as normal/abnormal. GRAN MAT (NEUT) % (test code = 770-8) 59.8 % IMM GRAN % (test code = 5217024636) 0.40 % LYMPH % (test code = 736-9) 31.0 % MONO % (test code = 5905-5) 6.3 % EOS % (test code = 713-8) 2.0 % BASO % (test code = 706-2) 0.5 % GRAN MAT x10^3(ANC) (test code = 4616621939) 6.73 10*3/uL 1.88-7.09 IMM GRAN x10^3 (test code = 8900479942) 0.05 10*3/uL 0.00-0.06 LYMPH x10^3 (test code = 731-0) 3.50 10*3/uL 1.32-3.29 H MONO x10^3 (test code = 742-7) 0.71 10*3/uL 0.33-0.92 EOS x10^3 (test code = 711-2) 0.23 10*3/uL 0.03-0.39 BASO x10^3 (test code = 704-7) 0.06 10*3/uL 0.01-0.07 Lab Interpretation (test code = 39425-2) Abnormal [facility] [id number] 01:45:00* Test Item Value Reference Range Interpretation Comme nts POCT PREG (test code = 1605) negatibe On board controls acceptable with C Line (test code = 3574) present POCT PREG LOT # (test code = 3575) [id number] POCT PREG TEST DATE ( test code = 3576) 09/04/2022 Lab Interpretation (test cod e = 20240-4) Normal [facility] [id number] 06:35:00* Test Item Value Reference Range Interpretation Comme nts POCT PREG (test code = 1605) negative On board controls acceptable with C Line (test code = 3574) present POCT PREG LOT # (test code = 3575) [id number] POCT PREG TEST DATE ( test code = 3576) Lab Interpretation (test cod e = 70704-4) [facility] TaylorTROPONIN [id number] 09:09:55* Test Item Value Reference Range Interpretation Comments TROPONIN I (test code = 4593047146) 0.001 ng/mL See_Comment [Automated message] The system [...] of biotin. Lab Interpretation (test code = 76096-1) Normal [facility] TaylorD-QCKBT1710-84-21 07:23:51* Test Item Value Reference Range Interpretation Comments D-DIMER (test code = 6218932986) See_Comment [Automated message] The system which generated [...] a diagnosis. Lab Interpretation (test code = 82726-3) [facility] TaylorLIPASE2021-11-21 06:11:26* Test Item Value Reference Range Interpretation Comme nts LIPASE (test code = 4628753915) 155 U/L 0-220 Lab Interpretation (test cod e = 11137-3) [facility] TaylorTROPONIN I8767-16-08 06:06:05* Test Item Value Reference Range Interpretation Comments TROPONIN I (test code = 9061333805) 0.002 ng/mL See_Comment [Automated message] The system [...] of biotin. Lab Interpretation (test code = 88735-3) Normal [facility] TaylorN-TERMINAL [id number] 06:03:04* Test Item Value Reference Range Interpretation Comme nts NT-proBNP (test code = 8678633532) 19 pg/mL See_Comment [Automated message] The system which generated this result transmitted reference range: <=125. The reference range was not used to interpret this result as normal/abnormal. DARWIN (test code = DARWIN) Biotin has been reported to cause a negative bias, interpret results relative to patient's use of biotin. Lab Interpretation (test code = 69834-7) [facility] TaylorCOMP. METABOLIC PANEL (47234)2021-05-28 05:54:25* Test Item Value Reference Range Interpretation Comme nts NA (test code = 2798999196) 136 mmol/L 135-145 K (test code = 3043642573) 3.2 mmol/L 3.5-5.0 L CL (test code = 9690873934) 109 mmol/L 98-108 H CO2 TOTAL (test code = 7568385057) 16 mmol/L 23-31 L AGAP (test code = 7052334385) 2-16 BUN (test code = 8664300316) 11 mg/dL 7-23 GLUCOSE (test code = 9718321559) 144 mg/dL 70-110 H CREATININE (test code = 3491581431) 0.84 mg/dL 0.50-1.04 TOTAL BILI (test code = 5312190751) 0.2 mg/dL 0.1-1.1 CALCIUM (test code = 2528670623) 9.4 mg/dL 8.6-10.6 T PROTEIN (test code = 0229201067) 6.9 g/dL 6.3-8.2 ALBUMIN (test code = 7219655818) 3.9 g/dL 3.5-5.0 ALK PHOS (test code = 9313734023) 106 U/L 34-122 ALTv (test code = 1742-6) 20 U/L 5-35 AST(SGOT) (test code = 4717127450) 17 U/L 13-40 eGFR (test code = 7853769103) mL/min/1.73m2 DARWIN (test code = DARWIN) Association [...] imaging tests). Lab Interpretation (test code = 89706-9) Abnormal [facility] WITH [id number] 05:40:06* Test Item Value Reference Range Interpretation Comme nts WBC (test code = 6690-2) See_Comment [Automated [employer]] The system which generated this result transmitted [...] 33.3 g/dL 31.6-35.1 RDW-SD (test code = 88189-9) 39.7 fL 39.0-49.9 RDW-CV (test code = 788-0) 13.6 % 12.0-15.5 PLT (test code = 777-3) See_Comment [Automated shoppa ge] The system which generated this result transmitted reference range: 166 - 358 10*3/?L. The reference range was not used to interpret this result as normal/abnormal. MPV (test code = 06130-9) 9.5 fL 9.5-12.9 NRBC/100 WBC (test code = 0916260027) See_Comment [Automated [employer] ssage] The system which generated this result transmitted reference range: 0.0 - 10.0 /100 WBCs. The reference range was not used to interpret this result as normal/abnormal. NRBC x10^3 (test code = 9510119379) <0.01 See_Comment [Automated messa ge] The system which generated this result transmitted reference range: 10*3/?L. The reference range was not used to interpret this result as normal/abnormal. GRAN MAT (NEUT) % (test code = 770-8) 53.7 % IMM GRAN % (test code = 8324855070) 0.50 % LYMPH % (test code = 736-9) 36.0 % MONO % (test code = 5905-5) 6.3 % EOS % (test code = 713-8) 2.8 % BASO % (test code = 706-2) 0.7 % GRAN MAT x10^3(ANC) (test code = 6120120969) 5.38 10*3/uL 1.88-7.09 IMM GRAN x10^3 (test code = 8905160360) 0.05 10*3/uL 0.00-0.06 LYMPH x10^3 (test code = 731-0) 3.60 10*3/uL 1.32-3.29 H MONO x10^3 (test code = 742-7) 0.63 10*3/uL 0.33-0.92 EOS x10^3 (test code = 711-2) 0.28 10*3/uL 0.03-0.39 BASO x10^3 (test code = 704-7) 0.07 10*3/uL 0.01-0.07 Lab Interpretation (test code = 89143-6) [facility] TaylorPO[facility] [id number] 05:32:00* Test Item Value Reference Range Interpretation Comme nts POCT PREG (test code = 1605) negative On board controls acceptable with C Line (test code = 3574) present POCT PREG LOT # (test code = 3575) [id number] POCT PREG TEST DATE ( test code = 3576) 08/07/2022 Lab Interpretation (test cod e = 82392-3) [facility] TaylorTroponin [id number] 11:13:57* Test Item Value Reference Range Interpretation Comments TROPONIN I (test code = 2605705977) 0.002 ng/mL See_Comment [Automated message] The system [...] of biotin. Lab Interpretation (test code = 94354-7) Normal [facility] Metabolic Panel (NA, K, CL, CO2, GLUCOSE, BUN, CREATININE, CA)2021-04-08 11:04:34* Test Item Value Reference Range Interpretation Comme nts NA (test code = 2580445796) 140 mmol/L 135-145 K (test code = 6742837416) 3.6 mmol/L 3.5-5.0 CL (test code = 5382218714) 111 mmol/L 98-108 H CO2 TOTAL (test code = 4971578555) 22 mmol/L 23-31 L AGAP (test code = 9555122703) 2-16 BUN (test code = 6069670515) 10 mg/dL 7-23 GLUCOSE (test code = 6367507342) 104 mg/dL 70-110 CREATININE (test code = 2666885146) 0.70 mg/dL 0.50-1.04 CALCIUM (test code = 3026450098) 8.7 mg/dL 8.6-10.6 eGFR (test code = 9963904868) mL/min/1.73m2 DARWIN (test code = DARWIN) Association [...] imaging tests). Lab Interpretation (test code = 34467-8) Abnormal [facility] with Zefjhhunctkj4001-13-96 10:46:50* Test Item Value Reference Range Interpretation Comme nts WBC (test code = 6690-2) See_Comment [Automated [employer]] The system which generated this result transmitted reference range: 4.30 - 11.10 10*3/?L. The reference range was not used to interpret this result as normal/abnormal. RBC (test code = 789-8) See_Comment [Automated [employer]] The system which generated this result transmitted [...] 33.5 g/dL 31.6-35.1 RDW-SD (test code = 11328-8) 42.0 fL 39.0-49.9 RDW-CV (test code = 788-0) 14.1 % 12.0-15.5 PLT (test code = 777-3) See_Comment [Automated [employer]] The system which generated this result transmitted reference range: 166 - 358 10*3/?L. The reference range was not used to interpret this result as normal/abnormal. MPV (test code = 05821-0) 10.0 fL 9.5-12.9 NRBC/100 WBC (test code = 6342780983) See_Comment [Automated me ssage] The system which generated this result transmitted reference range: 0.0 - 10.0 /100 WBCs. The reference range was not used to interpret this result as normal/abnormal. NRBC x10^3 (test code = 5804062319) <0.01 See_Comment [Automated me ssage] The system which generated this result transmitted reference range: 10*3/?L. The reference range was not used to interpret this result as normal/abnormal. GRAN MAT (NEUT) % (test code = 770-8) 59.1 % IMM GRAN % (test code = 5452906412) 0.70 % LYMPH % (test code = 736-9) 28.2 % MONO % (test code = 5905-5) 8.5 % EOS % (test code = 713-8) 3.0 % BASO % (test code = 706-2) 0.5 % GRAN MAT x10^3(ANC) (test code = 6674109989) 3.61 10*3/uL 1.88-7.09 IMM GRAN x10^3 (test code = 5568332764) 0.04 10*3/uL 0.00-0.06 LYMPH x10^3 (test code = 731-0) 1.72 10*3/uL 1.32-3.29 MONO x10^3 (test code = 742-7) 0.52 10*3/uL 0.33-0.92 EOS x10^3 (test code = 711-2) 0.18 10*3/uL 0.03-0.39 BASO x10^3 (test code = 704-7) 0.03 10*3/uL 0.01-0.07 [facility] [id number] 05:54:48* Test Item Value Reference Range Interpretation Comments TROPONIN I (test code = 8871266162) 0.002 ng/mL See_Comment [Automated message] The system [...] of biotin. Lab Interpretation (test code = 31584-4) [facility] TaylorThyroid Stimulating Hormone (TSH)2021-04-08 00:51:16* Test Item Value Reference Range Interpretation Comme nts TSH (test code = 3314739567) See_Comment [Automated [employer]] The system which generated this result transmitted reference range: 0.45 - 4.70 mIU/L. The reference range was not used to interpret this result as normal/abnormal. Lab Interpretation (test code = 49302-1) Normal [facility] TaylorGlycosylated Hemoglobin (A1C)2021-04-08 00:26:53* Test Item Value Reference Range Interpretation Comme nts HGB A1C (test code = 4548-4) 5.5 % 4.0-5.7 DARWIN (test code = DARWIN) Reference RangesNormal: <5.7%Prediabetes: 5.7 - 6.4%Diabetes: > 6.5% Lab Interpretation (test code = 54987-9) [facility] TaylorLipid Panel (Total Cholesterol, Triglycerides, HDL)2021-04-08 00:20:12* Test Item Value Reference Range Interpretation Comme nts CHOL (test code = 8078109513) 223 mg/dL 120-200 H HDL (test code = 7358595777) 35 mg/dL >50 L HDLC RATIO (test code = 2365318816) See_Comment H [Automated [employer]] The system which generated this result transmitted reference range: <=4.5. The reference range was not used to interpret this result as normal/abnormal. TRIG (test code = 8702156848) 223 mg/dL 30-170 H LDL CHOL (test code = 83485-5) 143 mg/dL See_Comment [Automated messa ge] The system which generated this result transmitted reference range: <=160. The reference range was not used to interpret this result as normal/abnormal. VLDL (test code = 1105735356) 45 mg/dL 5-60 Lab Interpretation (test code = 35017-9) Abnormal [facility] TaylorMagnesium Vcipe2818-49-66 00:20:07* Test Item Value Reference Range Interpretation Comme nts MAGNESIUM (test code = 2661364945) 1.7 mg/dL 1.7-2.4 Lab Interpretation (test cod e = 88569-5) [facility] (49894[facility]2021-04-07 23:04:13* Test Item Value Reference Range Interpretation Comme nts NA (test code = 7910682330) 139 mmol/L 135-145 K (test code = 4182035493) 3.4 mmol/L 3.5-5.0 L CL (test code = 7750387514) 109 mmol/L 98-108 H CO2 TOTAL (test code = 0310498262) 22 mmol/L 23-31 L AGAP (test code = 1096600233) 2-16 BUN (test code = 3268342513) 10 mg/dL 7-23 GLUCOSE (test code = 0088303777) 97 mg/dL 70-110 CREATININE (test code = 5396125769) 0.84 mg/dL 0.50-1.04 TOTAL BILI (test code = 9094006520) 0.3 mg/dL 0.1-1.1 CALCIUM (test code = 4841073376) 9.2 mg/dL 8.6-10.6 T PROTEIN (test code = 6619892200) 6.6 g/dL 6.3-8.2 ALBUMIN (test code = 9265797818) 3.8 g/dL 3.5-5.0 ALK PHOS (test code = 4532467013) 69 U/L 34-122 ALTv (test code = 1742-6) 18 U/L 5-35 AST(SGOT) (test code = 1778457305) 19 U/L 13-40 eGFR (test code = 4185095580) mL/min/1.73m2 DARWIN (test code = DARWIN) Association [...] imaging tests). Lab Interpretation (test code = 69624-8) [facility]normal [facility] TaylorTRMARYN [id number] 22:33:04* Test Item Value Reference Range Interpretation Comments TROPONIN I (test code = 0014062532) 0.001 ng/mL See_Comment [Automated message] The system [...] of biotin. Lab Interpretation (test code = 45107-5) [facility] TaylorN-TERMINAL TNK-STX9629-87-01 22:30:05* Test Item Value Reference Range Interpretation Comme nts NT-proBNP (test code = 6388512906) 352 pg/mL See_Comment H [Automated message] The system which generated this result transmitted reference range: <=125. The reference range was not used to interpret this result as normal/abnormal. DARWIN (test code = DARWIN) Biotin has been reported to cause a negative bias, interpret results relative to patient's use of biotin. Lab Interpretation (test code = 21947-5) Abnormal [facility] TaylorACTIVATED PARTIAL THRMPLAS [id number] 22:28:48* Test Item Value Reference Range Interpretation Comme nts APTT Patient (test code = 3173-2) See_Comment [Automated message] The system which generated this result transmitted reference range: 23 - 38 Seconds. The reference range was not used to interpret this result as normal/abnormal. DARWIN (test code = DARWIN) The [facility] patient population mean normal value for aPTT is 30 seconds. Lab Interpretation (test code = 46409-2) Normal [facility] TaylorPROTHROMBIN TIME / [id number] 22:26:44* Test Item Value Reference Range Interpretation [...] the indications. Lab Interpretation (test code = 49921-0) [facility] TaylorLIPASE2021-10-01 22:20:05* Test Item Value Reference Range Interpretation Comme nts LIPASE (test code = 4106168872) 66 U/L 0-220 Lab Interpretation (test cod e = 95499-9) [facility] TaylorCBC WITH [id number] 22:07:01* Test Item Value Reference Range Interpretation [...] 33.2 g/dL 31.6-35.1 RDW-SD (test code = 81084-2) 41.6 fL 39.0-49.9 RDW-CV (test code = 788-0) 14.1 % 12.0-15.5 PLT (test code = 777-3) See_Comment [Automated messa ge] The system which generated this result transmitted reference range: 166 - 358 10*3/?L. The reference range was not used to interpret this result as normal/abnormal. MPV (test code = 15253-7) 9.2 fL 9.5-12.9 L NRBC/100 WBC (test code = 7537353993) See_Comment [Automated [employer] ssage] The system which generated this result transmitted reference range: 0.0 - 10.0 /100 WBCs. The reference range was not used to interpret this result as normal/abnormal. NRBC x10^3 (test code = 5967629451) <0.01 See_Comment [Automated messa ge] The system which generated this result transmitted reference range: 10*3/?L. The reference range was not used to interpret this result as normal/abnormal. GRAN MAT (NEUT) % (test code = 770-8) 61.6 % IMM GRAN % (test code = 2249050469) 0.60 % LYMPH % (test code = 736-9) 28.7 % MONO % (test code = 5905-5) 4.9 % EOS % (test code = 713-8) 3.7 % BASO % (test code = 706-2) 0.5 % GRAN MAT x10^3(ANC) (test code = 9136990615) 6.24 10*3/uL 1.88-7.09 IMM GRAN x10^3 (test code = 0942882006) 0.06 10*3/uL 0.00-0.06 LYMPH x10^3 (test code = 731-0) 2.90 10*3/uL 1.32-3.29 MONO x10^3 (test code = 742-7) 0.50 10*3/uL 0.33-0.92 EOS x10^3 (test code = 711-2) 0.37 10*3/uL 0.03-0.39 BASO x10^3 (test code = 704-7) 0.05 10*3/uL 0.01-0.07 Lab Interpretation (test code = 97575-0) [facility] 08:49:55* Test Item Value Reference Range Interpretation Comme nts APPEARANCE (test code = 1362104489) Cloudy Clear A COLOR (test code = 8920156084) Yellow Yellow PH (test code = 1174560961) 4.8-8.0 SP GRAVITY (test code = 8056515491) 1.003-1.030 GLU U QUAL (test code = 4209445901) Normal Normal BLOOD (test code = 3158975295) Negative Negative KETONES (test code = 9638369890) Negative Negative PROTEIN (test code = 2887-8) Negative Negative UROBILIN (test code = 9279034548) Normal Normal BILIRUBIN (test code = 3302670678) 2 mg/dL Negative A NITRITE (test code = 0059614942) Negative Negative LEUK MARC (test code = 3117367234) 75/uL Negative A RBC/HPF (test code = 8973314200) See_Comment H [Automated messa ge] The system which generated this result transmitted reference range: 0 - 3 HPF. The reference range was not used to interpret this result as normal/abnormal. WBC/HPF (test code = 3446554782) See_Comment H [Automated messa ge] The system which generated this result transmitted reference range: 0 - 5 HPF. The reference range was not used to interpret this result as normal/abnormal. BACTERIA (test code = 8418708098) Moderate Negative A MUCOUS (test code = 9543420088) Slight Negative LPF A SQ EPITH (test code = 5784548897) HPF YEAST BUD (test code = 9380306856) See_Comment H [Automated messa ge] The system which generated this result transmitted reference range: <=1 HPF. The reference range was not used to interpret this result as normal/abnormal. Ictotest (test code = 2024379834) Negative Lab Interpretation (test code = 68955-5) Abnormal [facility]. METABOLIC PANEL (22367)2021-01-12 08:49:44* Test Item Value Reference Range Interpretation Comme nts NA (test code = 8738159756) 137 mmol/L 135-145 K (test code = 2597881768) 4.6 mmol/L 3.5-5.0 CL (test code = 1121945034) 108 mmol/L 98-108 CO2 TOTAL (test code = 3807808930) 21 mmol/L 23-31 L AGAP (test code = 3072008635) 2-16 BUN (test code = 4011678542) 19 mg/dL 7-23 GLUCOSE (test code = 3026851679) 107 mg/dL 70-110 CREATININE (test code = 0895316871) 0.63 mg/dL 0.50-1.04 TOTAL BILI (test code = 8501041735) 0.4 mg/dL 0.1-1.1 CALCIUM (test code = 6580229384) 9.2 mg/dL 8.6-10.6 T PROTEIN (test code = 5824924489) 7.4 g/dL 6.3-8.2 ALBUMIN (test code = 1389619455) 4.2 g/dL 3.5-5.0 ALK PHOS (test code = 0872264847) 179 U/L 34-122 H ALTv (test code = 1742-6) 113 U/L 5-35 H AST(SGOT) (test code = 2150727313) 38 U/L 13-40 eGFR (test code = 8031654498) mL/min/1.73m2 DARWIN (test code = DARWIN) Association [...] imaging tests). Lab Interpretation (test code = 34060-6) Abnormal [facility] WITH [id number] 08:11:02* Test Item Value Reference Range Interpretation Comme nts WBC (test code = 6690-2) See_Comment H [Automated [employer]] The system which generated this result transmitted reference range: 4.30 - 11.10 10*3/?L. The reference range was not used to interpret this result as normal/abnormal. RBC (test code = 789-8) See_Comment [Automated [employer]] The system which generated this result transmitted [...] 33.3 g/dL 31.6-35.1 RDW-SD (test code = 57788-5) 41.6 fL 39.0-49.9 RDW-CV (test code = 788-0) 14.0 % 12.0-15.5 PLT (test code = 777-3) See_Comment [Automated messa ge] The system which generated this result transmitted reference range: 166 - 358 10*3/?L. The reference range was not used to interpret this result as normal/abnormal. MPV (test code = 97995-9) 9.5 fL 9.5-12.9 NRBC/100 WBC (test code = 8570606736) See_Comment [Automated [employer] ssage] The system which generated this result transmitted reference range: 0.0 - 10.0 /100 WBCs. The reference range was not used to interpret this result as normal/abnormal. NRBC x10^3 (test code = 8116249256) <0.01 See_Comment [Automated shoppa ge] The system which generated this result transmitted reference range: 10*3/?L. The reference range was not used to interpret this result as normal/abnormal. GRAN MAT (NEUT) % (test code = 770-8) 68.0 % IMM GRAN % (test code = 7239307702) 0.80 % LYMPH % (test code = 736-9) 23.6 % MONO % (test code = 5905-5) 5.1 % EOS % (test code = 713-8) 2.1 % BASO % (test code = 706-2) 0.4 % GRAN MAT x10^3(ANC) (test code = 6953283992) 8.86 10*3/uL 1.88-7.09 H IMM GRAN x10^3 (test code = 7858796213) 0.11 10*3/uL 0.00-0.06 H LYMPH x10^3 (test code = 731-0) 3.07 10*3/uL 1.32-3.29 MONO x10^3 (test code = 742-7) 0.66 10*3/uL 0.33-0.92 EOS x10^3 (test code = 711-2) 0.27 10*3/uL 0.03-0.39 BASO x10^3 (test code = 704-7) 0.05 10*3/uL 0.01-0.07 Lab Interpretation (test code = 16624-9) [facility]normal [facility] [id number] 08:02:00* Test Item Value Reference Range Interpretation Comme nts POCT PREG (test code = 1605) negative On board controls acceptable with C Line (test code = 3574) positive POCT PREG LOT # (test code = 3575) [id number] POCT PREG TEST DATE ( test code = 3576) 07/07/2022 Lab Interpretation (test cod e = 69389-8) Normal [facility] TaylorTROP[facility] [id number] 01:55:05* Test Item Value Reference Range Interpretation Comme nts TROPONIN I (test code = 1441637004) 0.000 ng/mL See_Comment [Automated message] The system [...] biotin. ? Lab Interpretation (test code = 66409-4) Normal [facility] 1 Flhz1265-10-91 23:41:46No radiographic evidence of an acute cardiopulmonary process. RL: 2109AFC: 52834 EXAM: XR CHEST 1 VW ORDERING PROVIDER: [...] evidence of an acute cardiopulmonary process.RL: 2109AFC: 82455 [facility] [id number] 23:07:21* Test Item Value Reference Range Interpretation Comme nts TROPONIN I (test code = 6156548202) 0.000 ng/mL See_Comment [Automated message] The system [...] biotin. ? Lab Interpretation (test code = 96859-4) Normal [facility] TaylorN-TERMINAL LVI-HBD8865-06-05 23:04:20* Test Item Value Reference Range Interpretation Comme nts NT-proBNP (test code = 7635520266) 14 pg/mL See_Comment [Automated message] The system which generated this result transmitted reference range: <=125. The reference range was not used to interpret this result as normal/abnormal. DARWIN (test code = DARWIN) Biotin has been reported to cause a negative bias, interpret results relative to patient's use of biotin. Lab Interpretation (test code = 92874-0) [facility] Taylor[facility] (ALB, T.PRO, BILI T, BU/BC, ALT, AST, ALK PHOS)2020-12-10 22:58:16* Test Item Value Reference Range Interpretation Comme nts TOTAL BILI (test code = 1570074405) 0.5 mg/dL 0.1-1.1 BILI UNCON (test code = 8402534806) 0.3 mg/dL 0.1-1.1 BILI CONJ (test code = 2006084774) 0.0 mg/dL 0.0-0.3 T PROTEIN (test code = 2863309604) 8.1 g/dL 6.3-8.2 ALBUMIN (test code = 4853518127) 4.7 g/dL 3.5-5.0 ALK PHOS (test code = 1940143596) 104 U/L 34-122 ALTv (test code = 1742-6) 18 U/L 5-35 AST(SGOT) (test code = 6159465451) 23 U/L 13-40 Lab Interpretation (test cod e = 35506-4) Normal [facility] Metabolic Panel (NA, K, CL, CO2, GLUCOSE, BUN, CREATININE, CA)2020-12-10 22:57:56* Test Item Value Reference Range Interpretation Comme nts NA (test code = 9785170796) 135 mmol/L 135-145 K (test code = 0490273768) 3.7 mmol/L 3.5-5.0 CL (test code = 0823387991) 105 mmol/L 98-108 CO2 TOTAL (test code = 1150656265) 18 mmol/L 23-31 L AGAP (test code = 9968531392) 2-16 BUN (test code = 2489673414) 14 mg/dL 7-23 GLUCOSE (test code = 8763988449) 108 mg/dL 70-110 CREATININE (test code = 4449802337) 0.56 mg/dL 0.50-1.04 CALCIUM (test code = 4553671293) 9.8 mg/dL 8.6-10.6 eGFR (test code = 7967627732) mL/min/1.73m2 DARWIN (test code = DARWIN) Association [...] imaging tests). Lab Interpretation (test code = 23189-2) [facility]normal [facility] TaylorLipase Rolyq5209-99-05 22:57:56* Test Item Value Reference Range Interpretation Comme nts LIPASE (test code = 2987842114) 122 U/L 0-220 Lab Interpretation (test cod e = 62451-8) Normal [facility] TaylorD-JUXMQ5496-50-68 22:52:34* Test Item Value Reference Range Interpretation Comments D-DIMER (test code = 7458195160) See_Comment [Automated message] The system which generated [...] a diagnosis. Lab Interpretation (test code = 35588-1) Normal [facility] TaylorUrinalysis2021-06-05 22:52:29* Test Item Value Reference Range Interpretation Comme nts APPEARANCE (test code = 7445043443) Hazy Clear A COLOR (test code = 8340619328) Yellow Yellow PH (test code = 7897406723) 4.8-8.0 SP GRAVITY (test code = 9972379401) 1.003-1.030 GLU U QUAL (test code = 8655414375) Normal Normal BLOOD (test code = 7534161628) Negative Negative KETONES (test code = 7216382793) Negative Negative PROTEIN (test code = 2887-8) Negative Negative UROBILIN (test code = 3560907593) Normal Normal BILIRUBIN (test code = 1287700018) 2 mg/dL Negative A NITRITE (test code = 2472850464) Negative Negative LEUK MARC (test code = 3490212127) 25/uL Negative A RBC/HPF (test code = 7499542804) See_Comment [Automated shoppa ge] The system which generated this result transmitted reference range: 0 - 3 HPF. The reference range was not used to interpret this result as normal/abnormal. WBC/HPF (test code = 2900412191) See_Comment [Automated shoppa ge] The system which generated this result transmitted reference range: 0 - 5 HPF. The reference range was not used to interpret this result as normal/abnormal. BACTERIA (test code = 6848817192) Few Negative A MUCOUS (test code = 6138069037) Slight Negative LPF A SQ EPITH (test code = 6745211902) HPF Lab Interpretation (test code = 99311-8) Abnormal [facility] with Kgmugogdwuvw8585-33-42 22:45:56* Test Item Value Reference Range Interpretation [...] 33.5 g/dL 31.6-35.1 RDW-SD (test code = 42490-9) 40.5 fL 39.0-49.9 RDW-CV (test code = 788-0) 13.3 % 12.0-15.5 PLT (test code = 777-3) See_Comment H [Automated message] The system which generated this result transmitted reference range: 166 - 358 10*3/?L. The reference range was not used to interpret this result as normal/abnormal. MPV (test code = 84460-3) 9.2 fL 9.5-12.9 L NRBC/100 WBC (test code = 0294206165) See_Comment [Automated message] The system which generated this result transmitted reference range: 0.0 - 10.0 /100 WBCs. The reference range was not used to interpret this result as normal/abnormal. NRBC x10^3 (test code = 3307136584) <0.01 See_Comment [Automated message] The system which generated this result transmitted reference range: 10*3/?L. The reference range was not used to interpret this result as normal/abnormal. GRAN MAT (NEUT) % (test code = 770-8) 73.4 % IMM GRAN % (test code = 6499391994) 0.50 % LYMPH % (test code = 736-9) 17.5 % MONO % (test code = 5905-5) 6.5 % EOS % (test code = 713-8) 1.6 % BASO % (test code = 706-2) 0.5 % GRAN MAT x10^3(ANC) (test code = 8150176453) 10.21 10*3/uL 1.88-7.09 H IMM GRAN x10^3 (test code = 3532316651) 0.07 10*3/uL 0.00-0.06 H LYMPH x10^3 (test code = 731-0) 2.44 10*3/uL 1.32-3.29 MONO x10^3 (test code = 742-7) 0.90 10*3/uL 0.33-0.92 EOS x10^3 (test code = 711-2) 0.22 10*3/uL 0.03-0.39 BASO x10^3 (test code = 704-7) 0.07 10*3/uL 0.01-0.07 Lab Interpretation (test code = 56344-0) [facility]normal [facility]PO[facility] Doqs4902-46-99 22:32:00* Test Item Value Reference Range Interpretation Comme nts POCT PREG (test code = 1605) negative On board controls acceptable with C Line (test code = 3574) present POCT PREG LOT # (test code = 3575) [id number] POCT PREG TEST DATE ( test code = 3576) 06/06/2022 Lab Interpretation (test cod e = 54704-1) Normal [facility] TaylorUrinalysis2021-05-30 21:34:43* Test Item Value Reference Range Interpretation Comme nts APPEARANCE (test code = 5125101568) Clear Clear COLOR (test code = 0607793857) Yellow Yellow PH (test code = 9866388302) 4.8-8.0 SP GRAVITY (test code = 2777958004) 1.003-1.030 GLU U QUAL (test code = 0196551593) Normal Normal BLOOD (test code = 4151996348) Negative Negative KETONES (test code = 2037813017) Negative Negative PROTEIN (test code = 2887-8) Negative Negative UROBILIN (test code = 0503520662) Normal Normal BILIRUBIN (test code = 6557222469) Negative Negative NITRITE (test code = 8428833153) Negative Negative LEUK MARC (test code = 2277207079) Negative Negative RBC/HPF (test code = 0025352936) See_Comment [Automated shoppa ge] The system which generated this result transmitted reference range: 0 - 3 HPF. The reference range was not used to interpret this result as normal/abnormal. WBC/HPF (test code = 8251221933) <1 See_Comment [Automated shoppa ge] The system which generated this result transmitted reference range: 0 - 5 HPF. The reference range was not used to interpret this result as normal/abnormal. BACTERIA (test code = 5562340221) Negative Negative MUCOUS (test code = 3066231000) Slight Negative LPF A SQ EPITH (test code = 6404893322) HPF Lab Interpretation (test code = 77680-9) [facility]normal [facility] TaylorPO[facility] Asub6943-32-25 21:18:00* Test Item Value Reference Range Interpretation Comme nts POCT PREG (test code = 1605) negative On board controls acceptable with C Line (test code = 3574) present POCT PREG LOT # (test code = 3575) [id number] POCT PREG TEST DATE ( test code = 3576) 06/06/2022 Lab Interpretation (test cod e = 74921-0) Normal [facility] TaylorXR ANKLE 3+ VW POXB1016-84-40 21:11:00No acute bony abnormality. Preliminary Report Dictated [...] study and agree with the abovereport.[facility] TaylorTroponin K4007-65-67 20:59:44* Test Item Value Reference Range Interpretation Comme nts TROPONIN I (test code = 2654291881) 0.000 ng/mL See_Comment [Automated message] The system [...] biotin. ? Lab Interpretation (test code = 98110-4) Normal [facility] TaylorLipase Lohzh1136-01-34 20:48:20* Test Item Value Reference Range Interpretation Comme nts LIPASE (test code = 5780316392) 96 U/L 0-220 Lab Interpretation (test cod e = 78432-3) [facility] TaylorBasic Metabolic Panel (NA, K, CL, CO2, GLUCOSE, BUN, CREATININE, CA)2020-12-04 20:48:20* Test Item Value Reference Range Interpretation Comme nts NA (test code = 5787635176) 138 mmol/L 135-145 K (test code = 7699073117) 3.8 mmol/L 3.5-5.0 CL (test code = 1901313134) 108 mmol/L 98-108 CO2 TOTAL (test code = 0301006804) 21 mmol/L 23-31 L AGAP (test code = 9500553927) 2-16 BUN (test code = 4302931568) 13 mg/dL 7-23 GLUCOSE (test code = 3101229059) 107 mg/dL 70-110 CREATININE (test code = 6417680665) 0.66 mg/dL 0.50-1.04 CALCIUM (test code = 2539594483) 9.3 mg/dL 8.6-10.6 eGFR (test code = 4509483774) mL/min/1.73m2 DARWIN (test code = DARWIN) Association [...] imaging tests). Lab Interpretation (test code = 89051-7) [facility]normal [facility] Taylor[facility] (ALB, T.PRO, BILI T, BU/BC, ALT, AST, ALK PHOS)2020-12-04 20:48:20* Test Item Value Reference Range Interpretation Comme nts TOTAL BILI (test code = 2908869172) 0.3 mg/dL 0.1-1.1 BILI UNCON (test code = 6610771120) 0.1 mg/dL 0.1-1.1 BILI CONJ (test code = 3889844259) 0.0 mg/dL 0.0-0.3 T PROTEIN (test code = 5253512662) 7.0 g/dL 6.3-8.2 ALBUMIN (test code = 9023399268) 4.0 g/dL 3.5-5.0 ALK PHOS (test code = 8535816709) 114 U/L 34-122 ALTv (test code = 1742-6) 30 U/L 5-35 AST(SGOT) (test code = 3081461577) 23 U/L 13-40 Lab Interpretation (test cod e = 51085-7) Normal [facility] with Ibtityfrphdn0209-50-77 20:35:01* Test Item Value Reference Range Interpretation Comme nts WBC (test code = 6690-2) See_Comment [Automated shoppa ge] The system which generated this result transmitted reference range: 4.30 - 11.10 10*3/?L. The reference range was not used to interpret this result as normal/abnormal. RBC (test code = 789-8) See_Comment [Automated shoppa ge] The system which generated this result [...] 34.0 g/dL 31.6-35.1 RDW-SD (test code = 38917-5) 39.8 fL 39.0-49.9 RDW-CV (test code = 788-0) 12.9 % 12.0-15.5 PLT (test code = 777-3) See_Comment [Automated shoppa ge] The system which generated this result transmitted reference range: 166 - 358 10*3/?L. The reference range was not used to interpret this result as normal/abnormal. MPV (test code = 55327-9) 9.3 fL 9.5-12.9 L NRBC/100 WBC (test code = 8862834247) See_Comment [Automated me ssage] The system which generated this result transmitted reference range: 0.0 - 10.0 /100 WBCs. The reference range was not used to interpret this result as normal/abnormal. NRBC x10^3 (test code = 6470371608) <0.01 See_Comment [Automated messa ge] The system which generated this result transmitted reference range: 10*3/?L. The reference range was not used to interpret this result as normal/abnormal. GRAN MAT (NEUT) % (test code = 770-8) 71.5 % IMM GRAN % (test code = 0029737714) 0.30 % LYMPH % (test code = 736-9) 19.8 % MONO % (test code = 5905-5) 6.2 % EOS % (test code = 713-8) 1.8 % BASO % (test code = 706-2) 0.4 % GRAN MAT x10^3(ANC) (test code = 5006383482) 6.79 10*3/uL 1.88-7.09 IMM GRAN x10^3 (test code = 1177383035) 0.03 10*3/uL 0.00-0.06 LYMPH x10^3 (test code = 731-0) 1.88 10*3/uL 1.32-3.29 MONO x10^3 (test code = 742-7) 0.59 10*3/uL 0.33-0.92 EOS x10^3 (test code = 711-2) 0.17 10*3/uL 0.03-0.39 BASO x10^3 (test code = 704-7) 0.04 10*3/uL 0.01-0.07 Lab Interpretation (test code = 31785-8) [facility]normal [facility] TaylorDR[facility] (URINE)2020-11-04 02:54:38* Test Item Value Reference Range Interpretation Comme nts AMPHET (test code = 5281234182) Negative Negative Cocaine Metabolite (test code = 9342078949) Negative Negative OPIATES (test code = 2656855008) Presumptive Positive Negative A THC (test code = 0072171848) Negative Negative DARWIN (test code = DARWIN) Urine Drug Cutoff Ranges Amphetamine: ? 1,000 ng/mLCocaine: ? 150 ng/mLOpiates: ? 300 ng/mLCannabinoids: ?50 ng/mL The results are to be used only for medical (i.e., treatment) purposes. Unconfirmed screening results must not be used for non-medical purposes (e.g., employment testing, legal testing). Lab Interpretation (test code = 19894-7) [facility]normal [facility] TaylorTROPONIN [id number] 02:51:11* Test Item Value Reference Range Interpretation Comme [facility] TROPONIN I (test code = 4429898011) 0.001 ng/mL See_Comment [Automated message] The system [...] biotin. ? Lab Interpretation (test code = 07046-5) Normal [facility] TayloraPTT2021-04-30 02:41:10* Test Item Value Reference Range Interpretation Comme nts APTT Patient (test code = 3173-2) See_Comment [Automated message] The system which generated this result transmitted reference range: 23 - 38 Seconds. The reference range was not used to interpret this result as normal/abnormal. DARWIN (test code = DARWIN) The [facility] patient population mean normal value for aPTT is 30 seconds. Lab Interpretation (test code = 41563-4) Normal [facility] TaylorURINALYSIS2021-04-30 02:40:40* Test Item Value Reference Range Interpretation Comme nts APPEARANCE (test code = 0044224940) Clear Clear COLOR (test code = 6461464151) Yellow Yellow PH (test code = 8798314770) 4.8-8.0 SP GRAVITY (test code = 9620162735) 1.003-1.030 GLU U QUAL (test code = 5014522354) Normal Normal BLOOD (test code = 6005272814) Negative Negative KETONES (test code = 2296646492) Negative Negative PROTEIN (test code = 2887-8) Negative Negative UROBILIN (test code = 2592964096) Normal Normal BILIRUBIN (test code = 9770628103) Negative Negative NITRITE (test code = 8745463728) Negative Negative LEUK MARC (test code = 3729428327) Negative Negative RBC/HPF (test code = 1058147761) <1 See_Comment [Automated messa ge] The system which generated this result transmitted reference range: 0 - 3 HPF. The reference range was not used to interpret this result as normal/abnormal. WBC/HPF (test code = 3542416742) <1 See_Comment [Automated messa ge] The system which generated this result transmitted reference range: 0 - 5 HPF. The reference range was not used to interpret this result as normal/abnormal. BACTERIA (test code = 6407458939) Negative Negative MUCOUS (test code = 1879419111) Slight Negative LPF A SQ EPITH (test code = 4486812555) HPF Lab Interpretation (test code = 14687-9) [facility]normal [facility] TaylorCOMP. METABOLIC PANEL (27096)2020-11-04 02:40:09* Test Item Value Reference Range Interpretation Comme nts NA (test code = 7454417174) 141 mmol/L 135-145 K (test code = 6315283945) 4.1 mmol/L 3.5-5.0 CL (test code = 6461193471) 110 mmol/L 98-108 H CO2 TOTAL (test code = 6195391750) 22 mmol/L 23-31 L AGAP (test code = 2784160750) 2-16 BUN (test code = 9659029638) 15 mg/dL 7-23 GLUCOSE (test code = 3071063160) 115 mg/dL 70-110 H CREATININE (test code = 5027237350) 0.69 mg/dL 0.50-1.04 TOTAL BILI (test code = 9991026413) 0.2 mg/dL 0.1-1.1 CALCIUM (test code = 8529131094) 9.2 mg/dL 8.6-10.6 T PROTEIN (test code = 9901295580) 6.8 g/dL 6.3-8.2 ALBUMIN (test code = 7492267061) 4.1 g/dL 3.5-5.0 ALK PHOS (test code = 8805809655) 69 U/L 34-122 ALTv (test code = 1742-6) 20 U/L 5-35 AST(SGOT) (test code = 9474726525) 23 U/L 13-40 eGFR (test code = 4012192018) mL/min/1.73m2 DARWIN (test code = DARWIN) Association [...] imaging tests). Lab Interpretation (test code = 99421-9) [facility] TaylorLIPASE, GWYZY4437-51-97 02:39:49* Test Item Value Reference Range Interpretation Comme nts LIPASE (test code = 3433297486) 117 U/L 0-220 Lab Interpretation (test cod e = 61319-1) Normal [facility] TaylorPROTHROMBIN TIME / CAP2482-69-60 02:39:08* Test Item Value Reference Range Interpretation Comme nts PROTIME PATIENT (test code = 5964-2) See_Comment [Automated shoppa [employer]] The system which generated this result transmitted reference range: 12.0 - 14.7 Seconds. The reference range was not used to interpret this result as normal/abnormal. INR (test code = 6301-6) Normal INR <1.1; Warfarin Therapeutic range 2.0 to 3.0 or 2.5 to 3.5, depending upon the indications. Lab Interpretation (test code = 63558-9) [facility] TaylorCBC WITH MSZH7009-70-14 02:30:11* Test Item Value Reference Range Interpretation Comme nts WBC (test code = 6690-2) See_Comment H [Automated shoppa [employer]] The system which generated this result transmitted reference range: 4.30 - 11.10 10*3/?L. The reference range was not used to interpret this result as normal/abnormal. RBC (test code = 789-8) See_Comment [Automated shoppa [employer]] The system which generated this result transmitted [...] 32.8 g/dL 31.6-35.1 RDW-SD (test code = 87533-9) 44.1 fL 39.0-49.9 RDW-CV (test code = 788-0) 13.8 % 12.0-15.5 PLT (test code = 777-3) See_Comment [Automated shoppa ge] The system which generated this result transmitted reference range: 166 - 358 10*3/?L. The reference range was not used to interpret this result as normal/abnormal. MPV (test code = 02333-0) 9.6 fL 9.5-12.9 NRBC/100 WBC (test code = 0446309116) See_Comment [Automated [employer] ssage] The system which generated this result transmitted reference range: 0.0 - 10.0 /100 WBCs. The reference range was not used to interpret this result as normal/abnormal. NRBC x10^3 (test code = 8676994154) <0.01 See_Comment [Automated shoppa ge] The system which generated this result transmitted reference range: 10*3/?L. The reference range was not used to interpret this result as normal/abnormal. GRAN MAT (NEUT) % (test code = 770-8) 65.9 % IMM GRAN % (test code = 8981718479) 0.70 % LYMPH % (test code = 736-9) 25.9 % MONO % (test code = 5905-5) 5.1 % EOS % (test code = 713-8) 2.0 % BASO % (test code = 706-2) 0.4 % GRAN MAT x10^3(ANC) (test code = 2638425682) 8.82 10*3/uL 1.88-7.09 H IMM GRAN x10^3 (test code = 7316330563) 0.09 10*3/uL 0.00-0.06 H LYMPH x10^3 (test code = 731-0) 3.46 10*3/uL 1.32-3.29 H MONO x10^3 (test code = 742-7) 0.68 10*3/uL 0.33-0.92 EOS x10^3 (test code = 711-2) 0.27 10*3/uL 0.03-0.39 BASO x10^3 (test code = 704-7) 0.05 10*3/uL 0.01-0.07 Lab Interpretation (test code = 38470-2) [facility] NOW RAPID TESTING)2020-09-17 16:56:05* Test Item Value Reference Range Interpretation Comme nts SARS-CoV-2 Rapid ID NOW (test code = 50720-6) Not Detected Not Detected DARWIN (test code = DARWIN) ID NOW COVID-19 As say is an isothermal nucleic acid amplification test intended for the qualitative detection of nucleic acid from SARS-CoV-2 viral RNA in nasopharyngeal (METAL ROLLING MILL OPERATOR) specimens. It is used under Emergency Use [...] clinically indicated. Lab Interpretation (test code = 20608-9) Normal [facility] STREP SCREEN FOR GROUP [id number] 16:54:09* Test Item Value Reference Range Interpretation Comme nts Streptococcus pyogenes (grou p A) antigen (test code = 66364-2) Negative Negative Lab Interpretation (test cod e = 92840-5) Normal [facility]+ VW [id number] 07:29:48 Impression: No acute fracture or dislocation. RL: 2824AFC: [id number] End of Report Exam: Left Hand, 09/07/2020 [...] swelling.IMPRESSIONImpression: No acute fracture or dislocation.RL: 2824AFC: 96718Wsc of Report [facility] FOR[facility]ARM 2 VW [id number] 07:28:55No acute abnormality of the left forearm. RL: 6200AFC: 88807 Patient name: CHARITY MONROYOB: 1980 40 years EXAMINATION: XR FOREARM 2 VW LEFT Ordering Physician: Saleem EDWARD CLINICAL HISTORY:crush injury COMPARISON:None TECHNIQUE:Frontal and lateral views of the left forearm performed FINDINGS:No fracture or dislocation identified. No joint space narrowing. No osseouslesions. No elbow joint effusion. Soft tissues are intact. [facility], Radiant Results Inft User - 09/07/2020 1:29 AM CSTPatient name: CHARITY JOHNSONGEDOB: 1980 40 years EXAMINATION: XR FOREARM 2 VW LEFTOrdering Physician: Saleem EDWARD CLINICAL HISTORY:crush injury COMPARISON:NoneTECHNIQUE:Frontal and lateral views of the left forearm performedFINDINGS:No fracture or dislocation identified. No joint space narrowing. No osseouslesions. No elbow joint effusion. Soft tissues are intact.IMPRESSIONNo acute abnormality of the left forearm.RL: 6200AFC: 10405 [facility]Urinalysis2021-02-21 09:06:00* Test Item Value Reference Range Interpretation Comme nts APPEARANCE (test code = 6970260009) Hazy Clear A COLOR (test code = 0282592115) Yellow Yellow PH (test code = 3163385974) 4.8-8.0 SP GRAVITY (test code = 5730524404) 1.003-1.030 GLU U QUAL (test code = 7371275275) Normal Normal BLOOD (test code = 6209613103) Negative Negative KETONES (test code = 7662188471) Negative Negative PROTEIN (test code = 2887-8) Negative Negative UROBILIN (test code = 7209728013) Normal Normal BILIRUBIN (test code = 6244718303) Negative Negative NITRITE (test code = 5739907764) Negative Negative LEUK MARC (test code = 7881435268) Negative Negative RBC/HPF (test code = 1439491715) See_Comment [Automated messa ge] The system which generated this result transmitted reference range: 0 - 3 HPF. The reference range was not used to interpret this result as normal/abnormal. WBC/HPF (test code = 2462122021) <1 See_Comment [Automated messa ge] The system which generated this result transmitted reference range: 0 - 5 HPF. The reference range was not used to interpret this result as normal/abnormal. BACTERIA (test code = 6882897938) Moderate Negative A SQ EPITH (test code = 2981943825) HPF Lab Interpretation (test code = 76628-2) Abnormal [facility] with Sykshprrsnsq2745-96-14 08:50:00* Test Item Value Reference Range Interpretation [...] 34.0 g/dL 31.6-35.1 RDW-SD (test code = 28683-2) 42.6 fL 39-49.9 RDW-CV (test code = 788-0) 13.6 % 12-15.5 PLT (test code = 777-3) See_Comment H [Automated messa ge] The system which generated this result transmitted reference range: 166 - 358 10*3/?L. The reference range was not used to interpret this result as normal/abnormal. MPV (test code = 83195-8) 9.7 fL 9.5-12.9 NRBC/100 WBC (test code = 9211077138) See_Comment [Automated me ssage] The system which generated this result transmitted reference range: 0.0 - 10.0 /100 WBCs. The reference range was not used to interpret this result as normal/abnormal. NRBC x10^3 (test code = 5997419927) <0.01 See_Comment [Automated messa ge] The system which generated this result transmitted reference range: 10*3/?L. The reference range was not used to interpret this result as normal/abnormal. GRAN MAT (NEUT) % (test code = 770-8) 49.7 % IMM GRAN % (test code = 0937348827) 0.50 % LYMPH % (test code = 736-9) 41.0 % MONO % (test code = 5905-5) 6.5 % EOS % (test code = 713-8) 1.9 % BASO % (test code = 706-2) 0.4 % GRAN MAT x10^3(ANC) (test code = 9507475070) 6.39 10*3/uL 1.88-7.09 IMM GRAN x10^3 (test code = 2361054291) 0.07 10*3/uL 0-0.06 H LYMPH x10^3 (test code = 731-0) 5.27 10*3/uL 1.32-3.29 H MONO x10^3 (test code = 742-7) 0.84 10*3/uL 0.33-0.92 EOS x10^3 (test code = 711-2) 0.24 10*3/uL 0.03-0.39 BASO x10^3 (test code = 704-7) 0.05 10*3/uL 0.01-0.07 Lab Interpretation (test code = 88730-4) [facility]normal [facility] [id number] 08:45:00* Test Item Value Reference Range Interpretation Comme nts POCT PREG (test code = 1605) neg On board controls acceptable with C Line (test code = 3574) yes POCT PREG LOT # (test code = 3575) [id number] POCT PREG TEST DATE ( test code = 3576) 04/06/2022 Lab Interpretation (test cod e = 11705-0) Normal [facility] Taylor[facility] Metabolic [id number] 08:30:00* Test Item Value Reference Range Interpretation Comme nts NA (test code = 8723421722) 137 mmol/L 135-145 K (test code = 2940186673) 3.3 mmol/L 3.5-5 L CL (test code = 2464738885) 102 mmol/L 98-108 CO2 TOTAL (test code = 5824133626) 24 mmol/L 23-31 AGAP (test code = 6917882017) 2-16 BUN (test code = 8578634422) 9 mg/dL 7-23 GLUCOSE (test code = 9590144462) 116 mg/dL 70-110 H CREATININE (test code = 2165854950) 0.48 mg/dL 0.5-1.04 L TOTAL BILI (test code = 6040487318) 0.3 mg/dL 0.1-1.1 CALCIUM (test code = 3293768249) 9.4 mg/dL 8.6-10.6 T PROTEIN (test code = 7082008447) 7.0 g/dL 6.3-8.2 ALBUMIN (test code = 6256640394) 4.3 g/dL 3.5-5 ALK PHOS (test code = 9059433039) 127 U/L 34-122 H ALTv (test code = 1742-6) 87 U/L 5-35 H AST(SGOT) (test code = 3725544427) 34 U/L 13-40 eGFR Calculation (Non-) (test code = 1932725210) mL/min/1.73m2 eGFR Calculation () (test code = 7297844242) mL/min/1.73m2 DARWIN (test code = DARWIN) Association [...] imaging tests). Lab Interpretation (test code = 95738-7) [facility]normal [facility] TaylorLipase, Lpmjy7609-11-93 08:30:00* Test Item Value Reference Range Interpretation Comme nts LIPASE (test code = 8606019648) 297 U/L 0-220 H Lab Interpretation (test cod e = 45452-6) [facility]normal [facility] Taylor[facility]INALYSIS2021-02-07 19:25:00* Test Item Value Reference Range Interpretation Comme nts APPEARANCE (test code = 2893727207) Clear Clear COLOR (test code = 3584432275) Straw Yellow A PH (test code = 2964773769) 4.8-8.0 SP GRAVITY (test code = 7984857499) 1.003-1.030 GLU U QUAL (test code = 5288706485) Normal Normal BLOOD (test code = 6395980791) 1+ Negative A KETONES (test code = 8845255591) Negative Negative PROTEIN (test code = 2887-8) Negative Negative UROBILIN (test code = 8091005400) Normal Normal BILIRUBIN (test code = 9806039744) Negative Negative NITRITE (test code = 0219929862) Negative Negative LEUK MARC (test code = 9488366712) Negative Negative RBC/HPF (test code = 0084897333) See_Comment [Automated [employer]] The system which generated this result transmitted reference range: 0 - 3 HPF. The reference range was not used to interpret this result as normal/abnormal. WBC/HPF (test code = 3602225196) <1 See_Comment [Automated [employer]] The system which generated this result transmitted reference range: 0 - 5 HPF. The reference range was not used to interpret this result as normal/abnormal. BACTERIA (test code = 8253712477) Few Negative A MUCOUS (test code = 3939177809) Slight Negative LPF A SQ EPITH (test code = 1210637401) HPF Lab Interpretation (test code = 67371-7) Abnormal [facility] [id number] 19:09:00* Test Item Value Reference Range Interpretation Comme nts TROPONIN I (test code = 3157938462) <0.012 See_Comment [Automated message] The system which [...] biotin. ? Lab Interpretation (test code = 38190-8) Normal [facility] - DRUG SCREEN [id number] 19:09:00* Test Item Value Reference Range Interpretation Comme nts BENZO U (test code = 7245146085) Presumptive Positive Negative A ROSA U (test code = 9576345813) Negative Negative AMPHET (test code = 1822951642) Negative Negative THC (test code = 6797467828) Negative Negative METHADONE (test code = 2035935758) Negative Negative Meth U (test code = 0887748407) Negative Negative OPIATES (test code = 1044544224) Negative Negative Cocaine Metabolite (test code = 6026178158) Negative Negative PROPOXY (test code = 4042696830) Negative Negative Tric U (test code = 4688338209) Negative Negative PCP (test code = 7198066045) Negative Negative OXYCOD (test code = 7885200586) Negative Negative DARWIN (test code = DARWIN) [...] legal testing). Lab Interpretation (test code = 27808-2) Abnormal [facility]. METABOLIC PANEL (20121)2020-08-14 19:01:00* Test Item Value Reference Range Interpretation Comme nts NA (test code = 9387715020) 138 mmol/L 135-145 K (test code = 1280771592) 4.5 mmol/L 3.5-5 CL (test code = 6174438954) 106 mmol/L 98-108 CO2 TOTAL (test code = 8747131830) 21 mmol/L 23-31 L AGAP (test code = 0554547617) 2-16 BUN (test code = 6089567996) 13 mg/dL 7-23 GLUCOSE (test code = 2025006813) 97 mg/dL 70-110 CREATININE (test code = 1495020584) 0.48 mg/dL 0.5-1.04 L TOTAL BILI (test code = 1869542272) 0.4 mg/dL 0.1-1.1 CALCIUM (test code = 0258286454) 9.1 mg/dL 8.6-10.6 T PROTEIN (test code = 2390989737) 7.5 g/dL 6.3-8.2 ALBUMIN (test code = 4959862110) 4.3 g/dL 3.5-5 ALK PHOS (test code = 3288045240) 62 U/L 34-122 ALTv (test code = 1742-6) 19 U/L 5-35 AST(SGOT) (test code = 9276583972) 26 U/L 13-40 eGFR Calculation (Non-) (test code = 5493719091) mL/min/1.73m2 eGFR Calculation () (test code = 2947962473) mL/min/1.73m2 DARWIN (test code = DARWIN) Association [...] imaging tests). Lab Interpretation (test code = 80624-3) [facility]normal [facility] TaylorLIPASE2021-02-07 19:01:00* Test Item Value Reference Range Interpretation Comme nts LIPASE (test code = 7848180035) 76 U/L 0-220 Lab Interpretation (test cod e = 89605-4) Normal [facility] WITH [id number] 18:47:00* Test Item Value Reference Range Interpretation Comme nts WBC (test code = 6690-2) See_Comment H [Automated [employer]] The system which generated this result transmitted reference range: 4.30 - 11.10 10*3/?L. The reference range was not used to interpret this result as normal/abnormal. RBC (test code = 789-8) See_Comment [Automated [employer]] The system which generated this result transmitted [...] 34.3 g/dL 31.6-35.1 RDW-SD (test code = 38988-8) 42.0 fL 39-49.9 RDW-CV (test code = 788-0) 13.4 % 12-15.5 PLT (test code = 777-3) See_Comment [Automated messa ge] The system which generated this result transmitted reference range: 166 - 358 10*3/?L. The reference range was not used to interpret this result as normal/abnormal. MPV (test code = 24538-4) 9.9 fL 9.5-12.9 NRBC/100 WBC (test code = 8007971660) See_Comment [Automated [employer] ssage] The system which generated this result transmitted reference range: 0.0 - 10.0 /100 WBCs. The reference range was not used to interpret this result as normal/abnormal. NRBC x10^3 (test code = 4500004060) <0.01 See_Comment [Automated messa ge] The system which generated this result transmitted reference range: 10*3/?L. The reference range was not used to interpret this result as normal/abnormal. GRAN MAT (NEUT) % (test code = 770-8) 60.1 % IMM GRAN % (test code = 9205374159) 0.40 % LYMPH % (test code = 736-9) 31.3 % MONO % (test code = 5905-5) 6.0 % EOS % (test code = 713-8) 1.9 % BASO % (test code = 706-2) 0.3 % GRAN MAT x10^3(ANC) (test code = 5006201534) 6.96 10*3/uL 1.88-7.09 IMM GRAN x10^3 (test code = 5617644273) 0.05 10*3/uL 0-0.06 LYMPH x10^3 (test code = 731-0) 3.62 10*3/uL 1.32-3.29 H MONO x10^3 (test code = 742-7) 0.69 10*3/uL 0.33-0.92 EOS x10^3 (test code = 711-2) 0.22 10*3/uL 0.03-0.39 BASO x10^3 (test code = 704-7) 0.04 10*3/uL 0.01-0.07 Lab Interpretation (test code = 25368-5) [facility]normal [facility] CHEST 1 [id number] 18:17:08No acute cardiopulmonary abnormality. Preliminary Report Dictated [...] study and agree with theabove report.[facility] TaylorLactic Acid Whole Qgybw9284-14-58 18:11:00* Test Item Value Reference Range Interpretation Comme nts LACTIC ACID (test code = 1686767256) 1.95 mmol/L 0.5-2.2 Lab Interpretation (test cod e = 09230-9) Normal [facility] ABDOMEN PELVIS WO [id number] 05:45:24No acute abdominopelvic abnormality. No urolithiasis. 2.5 [...] reviewed this study and agree with the abovereport.[facility] [id number] 03:10:00* Test Item Value Reference Range Interpretation Comme [facility] POCT PREG (test code = 1605) Negative On board controls acceptable with C Line (test code = 3574) Present POCT PREG LOT # (test code = 3575) [id number] POCT PREG TEST DATE ( test code = 3576) 03/07/2022 Lab Interpretation (test cod e = 99842-7) Normal [facility] with Yiqnwynkeczh8805-45-67 03:05:00* Test Item Value Reference Range Interpretation Comme [facility] WBC (test code = 6690-2) See_Comment [...] 34.7 g/dL 31.6-35.1 RDW-SD (test code = 50344-1) 42.0 fL 39-49.9 RDW-CV (test code = 788-0) 13.5 % 12-15.5 PLT (test code = 777-3) See_Comment [Automated message] The system which generated this result transmitted reference range: 166 - 358 10*3/?L. The reference range was not used to interpret this result as normal/abnormal. MPV (test code = 50989-1) 9.8 fL 9.5-12.9 NRBC/100 WBC (test code = 1485901326) See_Comment [Automated message] The system which generated this result transmitted reference range: 0.0 - 10.0 /100 WBCs. The reference range was not used to interpret this result as normal/abnormal. NRBC x10^3 (test code = 7069715554) <0.01 See_Comment [Automated message] The system which generated this result transmitted reference range: 10*3/?L. The reference range was not used to interpret this result as normal/abnormal. GRAN MAT (NEUT) % (test code = 770-8) 66.2 % IMM GRAN % (test code = 3956057813) 0.60 % LYMPH % (test code = 736-9) 25.4 % MONO % (test code = 5905-5) 5.6 % EOS % (test code = 713-8) 1.9 % BASO % (test code = 706-2) 0.3 % GRAN MAT x10^3(ANC) (test code = 2016771859) 10.64 10*3/uL 1.88-7.09 H IMM GRAN x10^3 (test code = 0654015354) 0.09 10*3/uL 0-0.06 H LYMPH x10^3 (test code = 731-0) 4.09 10*3/uL 1.32-3.29 H MONO x10^3 (test code = 742-7) 0.90 10*3/uL 0.33-0.92 EOS x10^3 (test code = 711-2) 0.31 10*3/uL 0.03-0.39 BASO x10^3 (test code = 704-7) 0.05 10*3/uL 0.01-0.07 Lab Interpretation (test code = 31696-0) [facility]normal [facility] TaylorUrinalysis2021-02-04 02:56:00* Test Item Value Reference Range Interpretation Comme nts APPEARANCE (test code = 3569333640) Hazy Clear A COLOR (test code = 2073379151) Yellow Yellow PH (test code = 7018763878) 4.8-8.0 SP GRAVITY (test code = 8516631227) 1.003-1.030 GLU U QUAL (test code = 7099989550) Normal Normal BLOOD (test code = 9056879782) Negative Negative KETONES (test code = 8224265539) Negative Negative PROTEIN (test code = 2887-8) Negative Negative UROBILIN (test code = 0509787551) Normal Normal BILIRUBIN (test code = 5555373811) Negative Negative NITRITE (test code = 4626105168) Negative Negative LEUK MARC (test code = 7733837561) Negative Negative RBC/HPF (test code = 7929313818) See_Comment [Automated shoppa ge] The system which generated this result transmitted reference range: 0 - 3 HPF. The reference range was not used to interpret this result as normal/abnormal. WBC/HPF (test code = 0245462246) See_Comment [Automated shoppa ge] The system which generated this result transmitted reference range: 0 - 5 HPF. The reference range was not used to interpret this result as normal/abnormal. BACTERIA (test code = 7867667088) Few Negative A MUCOUS (test code = 6843714496) Slight Negative LPF A SQ EPITH (test code = 4895703039) HPF YEAST BUD (test code = 9021060635) See_Comment H [Automated shoppa ge] The system which generated this result transmitted reference range: <=1 HPF. The reference range was not used to interpret this result as normal/abnormal. Lab Interpretation (test code = 48247-9) [facility]normal [facility] TaylorTroponin [id number] 02:24:00* Test Item Value Reference Range Interpretation Comme nts TROPONIN I (test code = 1490008864) <0.012 See_Comment [Automated message] The system which [...] biotin. ? Lab Interpretation (test code = 05755-0) Normal [facility] (ID NOW RAPID TESTING)2020-08-11 02:15:00* Test Item Value Reference Range Interpretation Comme nts SARS-CoV-2 Rapid ID NOW (test code = 82457-0) Not Detected Not Detected DARWIN (test code = DARWIN) ID NOW COVID-19 As say is an isothermal nucleic acid amplification test intended for the qualitative detection of nucleic acid from SARS-CoV-2 viral RNA in nasopharyngeal (METAL ROLLING MILL OPERATOR) specimens. It is used under Emergency Use [...] clinically indicated. Lab Interpretation (test code = 50747-2) Normal [facility] Metabolic Panel (NA, K, CL, CO2, GLUCOSE, BUN, CREATININE, CA)2020-08-11 02:13:00* Test Item Value Reference Range Interpretation Comme nts NA (test code = 7370906132) 137 mmol/L 135-145 K (test code = 9234471589) 4.0 mmol/L 3.5-5 CL (test code = 3940742285) 107 mmol/L 98-108 CO2 TOTAL (test code = 7668815841) 19 mmol/L 23-31 L AGAP (test code = 2323737808) 2-16 BUN (test code = 1643512828) 10 mg/dL 7-23 GLUCOSE (test code = 9942490631) 106 mg/dL 70-110 CREATININE (test code = 9092939260) 0.47 mg/dL 0.5-1.04 L CALCIUM (test code = 5562495916) 9.2 mg/dL 8.6-10.6 eGFR Calculation (Non-) (test code = 1335764090) mL/min/1.73m2 eGFR Calculation () (test code = 1983394059) mL/min/1.73m2 DARWIN (test code = DARWIN) Association [...] imaging tests). Lab Interpretation (test code = 64206-9) [facility]normal [facility] TaylorHepatic Function Panel (ALB, T.PRO, BILI T, BU/BC, ALT, AST, ALK PHOS)2020-08-11 02:13:00* Test Item Value Reference Range Interpretation Comme nts TOTAL BILI (test code = 1653671928) 0.4 mg/dL 0.1-1.1 BILI UNCON (test code = 3185642493) 0.3 mg/dL 0.1-1.1 BILI CONJ (test code = 2484095380) 0.0 mg/dL 0-0.3 T PROTEIN (test code = 6578976378) 7.5 g/dL 6.3-8.2 ALBUMIN (test code = 3701193186) 4.4 g/dL 3.5-5 ALK PHOS (test code = 9443020849) 48 U/L 34-122 ALTv (test code = 1742-6) 12 U/L 5-35 AST(SGOT) (test code = 2189471228) 22 U/L 13-40 Lab Interpretation (test cod e = 01327-2) Normal [facility] TaylorLipase Esoui2076-32-63 02:13:00* Test Item Value Reference Range Interpretation Comme nts LIPASE (test code = 0394841266) 78 U/L 0-220 Lab Interpretation (test cod e = 11891-8) Normal [facility] TaylorLactic Acid Whole Kyrgg8201-25-97 02:05:00* Test Item Value Reference Range Interpretation Comme nts LACTIC ACID (test code = 7879246530) 1.47 mmol/L 0.5-2.2 Lab Interpretation (test cod e = 30448-4) [facility] FOREARM 2 VW [id number] 14:31:40No acute bony abnormality. Soft tissue swelling. [...] study and agree with the abovereport.[facility] (ID NOW RAPID TESTING)2020-08-07 14:18:00* Test Item Value Reference Range Interpretation Comme nts SARS-CoV-2 Rapid ID NOW (test code = 07325-2) Not Detected Not Detected DARWIN (test code = DARWIN) ID NOW COVID-19 As say is an isothermal nucleic acid amplification test intended for the qualitative detection of nucleic acid from SARS-CoV-2 viral RNA in nasopharyngeal (METAL ROLLING MILL OPERATOR) specimens. It is used under Emergency Use [...] clinically indicated. Lab Interpretation (test code = 52455-1) Normal [facility] TaylorTROPONIN [id number] 02:54:00* Test Item Value Reference Range Interpretation Comme nts TROPONIN I (test code = 2435831288) <0.012 See_Comment [Automated message] The system which [...] biotin. ? Lab Interpretation (test code = 99316-0) [facility] TaylorLIPASE2020-12-25 02:37:00* Test Item Value Reference Range Interpretation Comme nts LIPASE (test code = 7890059870) 76 U/L 0-220 Lab Interpretation (test cod e = 68453-9) [facility] Taylor[facility]INALYSIS2020-12-25 01:54:00* Test Item Value Reference Range Interpretation Comme nts APPEARANCE (test code = 0425100615) Clear Clear COLOR (test code = 3542481570) Straw Yellow A PH (test code = 6714805207) 4.8-8.0 SP GRAVITY (test code = 2287415272) 1.003-1.030 GLU U QUAL (test code = 3681029605) Normal Normal BLOOD (test code = 6280197401) 3+ Negative A KETONES (test code = 6808392183) Negative Negative PROTEIN (test code = 2887-8) Negative Negative UROBILIN (test code = 4916135384) Normal Normal BILIRUBIN (test code = 2682958378) Negative Negative NITRITE (test code = 9066203839) Negative Negative LEUK MARC (test code = 5694246859) Negative Negative RBC/HPF (test code = 9370655410) See_Comment [Automated shoppa ge] The system which generated this result transmitted reference range: 0 - 3 HPF. The reference range was not used to interpret this result as normal/abnormal. WBC/HPF (test code = 9645466085) <1 See_Comment [Automated shoppa ge] The system which generated this result transmitted reference range: 0 - 5 HPF. The reference range was not used to interpret this result as normal/abnormal. BACTERIA (test code = 5121506536) Few Negative A MUCOUS (test code = 4009813153) Slight Negative LPF A SQ EPITH (test code = 4161783512) HPF Lab Interpretation (test code = 61612-5) Abnormal [facility] WITH [id number] 00:57:00* Test Item Value Reference Range Interpretation Comme nts WBC (test code = 6690-2) See_Comment [Automated messa ge] The system which generated this result transmitted reference range: 4.30 - 11.10 10*3/?L. The reference range was not used to interpret this result as normal/abnormal. RBC (test code = 789-8) See_Comment [Automated shoppa ge] The system which generated this result [...] 34.0 g/dL 31.6-35.1 RDW-SD (test code = 43054-7) 41.7 fL 39-49.9 RDW-CV (test code = 788-0) 13.2 % 12-15.5 PLT (test code = 777-3) See_Comment [Automated messa ge] The system which generated this result transmitted reference range: 166 - 358 10*3/?L. The reference range was not used to interpret this result as normal/abnormal. MPV (test code = 40016-6) 9.4 fL 9.5-12.9 L NRBC/100 WBC (test code = 7561076061) See_Comment [Automated [employer] ssage] The system which generated this result transmitted reference range: 0.0 - 10.0 /100 WBCs. The reference range was not used to interpret this result as normal/abnormal. NRBC x10^3 (test code = 7267529400) <0.01 See_Comment [Automated shoppa ge] The system which generated this result transmitted reference range: 10*3/?L. The reference range was not used to interpret this result as normal/abnormal. GRAN MAT (NEUT) % (test code = 770-8) 51.8 % IMM GRAN % (test code = 6210139120) 0.50 % LYMPH % (test code = 736-9) 40.7 % MONO % (test code = 5905-5) 4.0 % EOS % (test code = 713-8) 2.5 % BASO % (test code = 706-2) 0.5 % GRAN MAT x10^3(ANC) (test code = 0102978724) 5.38 10*3/uL 1.88-7.09 IMM GRAN x10^3 (test code = 3419717109) 0.05 10*3/uL 0-0.06 LYMPH x10^3 (test code = 731-0) 4.22 10*3/uL 1.32-3.29 H MONO x10^3 (test code = 742-7) 0.42 10*3/uL 0.33-0.92 EOS x10^3 (test code = 711-2) 0.26 10*3/uL 0.03-0.39 BASO x10^3 (test code = 704-7) 0.05 10*3/uL 0.01-0.07 Lab Interpretation (test code = 19988-0) [facility]normal [facility] - INFLUENZA A & B DIRECT [id number] 00:51:00* Test Item Value Reference Range Interpretation Comme nts Influenza A (test code = 44760-5) Negative Negative Influenza B (test code = 07552-4) Negative Negative Lab Interpretation (test cod e = 49556-8) Normal [facility] TaylorPO[facility] [id number] 00:51:00* Test Item Value Reference Range Interpretation Comme nts POCT PREG (test code = 1605) negative On board controls acceptable with C Line (test code = 3574) present POCT PREG LOT # (test code = 3575) [id number] POCT PREG TEST DATE ( test code = 3576) 11/04/2021 Lab Interpretation (test cod e = 69367-8) Normal [facility] TaylorTROPONIN [id number] 00:46:00* Test Item Value Reference Range Interpretation Comme nts TROPONIN I (test code = 1302331405) <0.012 See_Comment [Automated message] The system which [...] biotin. ? Lab Interpretation (test code = 88093-8) Normal [facility] (NA, K, CL, CO2, GLUCOSE, BUN, CREATININE, CA)2020-07-01 00:46:00* Test Item Value Reference Range Interpretation Comme nts NA (test code = 9580081703) 141 mmol/L 135-145 K (test code = 4084329279) 3.8 mmol/L 3.5-5 CL (test code = 6691574930) 108 mmol/L 98-108 CO2 TOTAL (test code = 9651477610) 25 mmol/L 23-31 AGAP (test code = 2514478042) 2-16 BUN (test code = 8845606984) 10 mg/dL 7-23 GLUCOSE (test code = 3986628017) 92 mg/dL 70-110 CREATININE (test code = 7420276009) 0.58 mg/dL 0.5-1.04 CALCIUM (test code = 0284568533) 9.4 mg/dL 8.6-10.6 eGFR Calculation (Non-) (test code = 7124106223) mL/min/1.73m2 eGFR Calculation () (test code = 6398826366) mL/min/1.73m2 DARWIN (test code = DARWIN) Association [...] or abnormalities in imaging tests). [facility] TaylorN-TERMINAL [id number] 00:43:00* Test Item Value Reference Range Interpretation Comme nts NT-proBNP (test code = 7195818605) 332 pg/mL See_Comment H [Automated message] The system which generated this result transmitted reference range: <=125. The reference range was not used to interpret this result as normal/abnormal. DARWIN (test code = DARWIN) Biotin has been reported to cause a negative bias, interpret results relative to patient's use of biotin. Lab Interpretation (test code = 10435-9) Abnormal [facility] TaylorXR CHEST 1 [id number] 00:20:50No acute cardiopulmonary abnormality Preliminary Report Dictated [...] reviewed this study and agree with the abovereport.[facility] CERVICAL SPINE WO [id number] 23:23:[address] EXAMINATION: CT [...] are unremarkable. IMPRESSIONUnremarkable cervical spine CT.[facility] TaylorPOAR [id number] 01:50:00* Test Item Value Reference Range Interpretation Comme nts POCT PREG (test code = 1605) Negative On board controls acceptable with C Line (test code = 3574) Present POCT PREG LOT # (test code = 3575) [id number] POCT PREG TEST DATE ( test code = 3576) 10/05/2021 Lab Interpretation (test cod e = 72384-3) Normal [facility] TaylorTroponin [id number] 01:24:00* Test Item Value Reference Range Interpretation Comme nts TROPONIN I (test code = 8544171967) <0.012 See_Comment [Automated message] The system which [...] biotin. ? Lab Interpretation (test code = 41536-7) Normal [facility] TaylorCOVID-19 (ID NOW RAPID TESTING)2020-06-13 01:22:00* Test Item Value Reference Range Interpretation Comme nts SARS-CoV-2 Rapid ID NOW (test code = 68418-5) Not Detected Not Detected DARWIN (test code = DARWIN) ID NOW COVID-19 As say is an isothermal nucleic acid amplification test intended for the qualitative detection of nucleic acid from SARS-CoV-2 viral RNA in nasopharyngeal (METAL ROLLING MILL OPERATOR) specimens. It is used under Emergency Use [...] clinically indicated. Lab Interpretation (test code = 75680-1) Normal [facility] TaylorD-[id number] 01:16:00* Test Item Value Reference Range Interpretation Comments D-DIMER (test code = 7163057183) See_Comment [Automated message] The system which generated [...] a diagnosis. Lab Interpretation (test code = 15368-2) Normal [facility] TaylorBasi Metabolic Panel (NA, K, CL, CO2, GLUCOSE, BUN, CREATININE, CA)2020-06-13 01:13:00* Test Item Value Reference Range Interpretation Comme nts NA (test code = 3331576301) 137 mmol/L 135-145 K (test code = 1766126441) 4.2 mmol/L 3.5-5 CL (test code = 6605004172) 103 mmol/L 98-108 CO2 TOTAL (test code = 5362318771) 25 mmol/L 23-31 AGAP (test code = 8402284240) 2-16 BUN (test code = 2273424809) 11 mg/dL 7-23 GLUCOSE (test code = 7076356087) 98 mg/dL 70-110 CREATININE (test code = 8904237684) 0.52 mg/dL 0.5-1.04 CALCIUM (test code = 9864573735) 10.3 mg/dL 8.6-10.6 eGFR Calculation (Non-) (test code = 8646653555) mL/min/1.73m2 eGFR Calculation () (test code = 0824880824) mL/min/1.73m2 DARWIN (test code = DARWIN) Association [...] or abnormalities in imaging tests). [facility] TaylorHepatic Function Panel (ALB, T.PRO, BILI T, BU/BC, ALT, AST, ALK PHOS)2020-06-13 01:13:00* Test Item Value Reference Range Interpretation Comme nts TOTAL BILI (test code = 0467595946) 0.5 mg/dL 0.1-1.1 BILI UNCON (test code = 8136608361) 0.3 mg/dL 0.1-1.1 BILI CONJ (test code = 4740521461) 0.0 mg/dL 0-0.3 T PROTEIN (test code = 8463417678) 7.3 g/dL 6.3-8.2 ALBUMIN (test code = 5701749826) 4.2 g/dL 3.5-5 ALK PHOS (test code = 0447265510) 85 U/L 34-122 ALTv (test code = 1742-6) 66 U/L 5-35 H AST(SGOT) (test code = 2051383626) 32 U/L 13-40 Lab Interpretation (test cod e = 49345-6) Abnormal [facility] TaylorLipase [id number] 01:13:00* Test Item Value Reference Range Interpretation Comme nts LIPASE (test code = 1913072329) 60 U/L 0-220 Lab Interpretation (test cod e = 16625-4) Normal [facility] TaylorUrinalysis2020-12-07 01:03:00* Test Item Value Reference Range Interpretation Comme nts APPEARANCE (test code = 7249280413) Clear Clear COLOR (test code = 6819011740) Straw Yellow A PH (test code = 7036017120) 4.8-8.0 SP GRAVITY (test code = 2770348351) 1.003-1.030 GLU U QUAL (test code = 6071642766) Normal Normal BLOOD (test code = 9994566366) Negative Negative KETONES (test code = 7081563533) Negative Negative PROTEIN (test code = 2887-8) Negative Negative UROBILIN (test code = 7429750830) Normal Normal BILIRUBIN (test code = 6592641936) Negative Negative NITRITE (test code = 3560417148) Negative Negative LEUK MARC (test code = 1180628782) Negative Negative RBC/HPF (test code = 5597649055) See_Comment [Automated [employer]] The system which generated this result transmitted reference range: 0 - 3 HPF. The reference range was not used to interpret this result as normal/abnormal. WBC/HPF (test code = 1587788877) See_Comment [Automated [employer]] The system which generated this result transmitted reference range: 0 - 5 HPF. The reference range was not used to interpret this result as normal/abnormal. BACTERIA (test code = 8082027853) Negative Negative MUCOUS (test code = 4806531289) Slight Negative LPF A SQ EPITH (test code = 6160862458) HPF Lab Interpretation (test code = 93776-4) Abnormal [facility] with Kqrvibwxmccu8958-43-75 00:55:00* Test Item Value Reference Range Interpretation [...] 34.5 g/dL 31.6-35.1 RDW-SD (test code = 97575-2) 42.5 fL 39-49.9 RDW-CV (test code = 788-0) 13.5 % 12-15.5 PLT (test code = 777-3) See_Comment [Automated messa ge] The system which generated this result transmitted reference range: 166 - 358 10*3/?L. The reference range was not used to interpret this result as normal/abnormal. MPV (test code = 18406-1) 10.1 fL 9.5-12.9 NRBC/100 WBC (test code = 3893342254) See_Comment [Automated [employer] ssage] The system which generated this result transmitted reference range: 0.0 - 10.0 /100 WBCs. The reference range was not used to interpret this result as normal/abnormal. NRBC x10^3 (test code = 7951503901) <0.01 See_Comment [Automated messa ge] The system which generated this result transmitted reference range: 10*3/?L. The reference range was not used to interpret this result as normal/abnormal. GRAN MAT (NEUT) % (test code = 770-8) 61.9 % IMM GRAN % (test code = 1848327902) 0.60 % LYMPH % (test code = 736-9) 30.6 % MONO % (test code = 5905-5) 5.2 % EOS % (test code = 713-8) 1.4 % BASO % (test code = 706-2) 0.3 % GRAN MAT x10^3(ANC) (test code = 2182244712) 8.03 10*3/uL 1.88-7.09 H IMM GRAN x10^3 (test code = 8735050508) 0.08 10*3/uL 0-0.06 H LYMPH x10^3 (test code = 731-0) 3.97 10*3/uL 1.32-3.29 H MONO x10^3 (test code = 742-7) 0.68 10*3/uL 0.33-0.92 EOS x10^3 (test code = 711-2) 0.18 10*3/uL 0.03-0.39 BASO x10^3 (test code = 704-7) 0.04 10*3/uL 0.01-0.07 Lab Interpretation (test code = 46203-1) Abnormal [facility] TaylorCOVID[facility] (ID NOW RAPID TESTING)2020-05-17 00:27:00* Test Item Value Reference Range Interpretation Comme nts SARS-CoV-2 Rapid ID NOW (test code = 91647-0) Not Detected Not Detected DARWIN (test code = DARWIN) ID NOW COVID-19 As say is an isothermal nucleic acid amplification test intended for the qualitative detection of nucleic acid from SARS-CoV-2 viral RNA in nasopharyngeal (METAL ROLLING MILL OPERATOR) specimens. It is used under Emergency Use [...] clinically indicated. Lab Interpretation (test code = 12028-5) Normal [facility] Metabolic Panel (NA, K, CL, CO2, GLUCOSE, BUN, CREATININE, CA)2020-05-17 00:00:00* Test Item Value Reference Range Interpretation Comme nts NA (test code = 6203109275) 136 mmol/L 135-145 K (test code = 8276390235) 3.6 mmol/L 3.5-5 CL (test code = 3791800078) 103 mmol/L 98-108 CO2 TOTAL (test code = 5728253818) 26 mmol/L 23-31 AGAP (test code = 8666798894) 2-16 BUN (test code = 4820149950) 13 mg/dL 7-23 GLUCOSE (test code = 8137586496) 130 mg/dL 70-110 H CREATININE (test code = 0787282022) 0.58 mg/dL 0.5-1.04 CALCIUM (test code = 9170786129) 9.9 mg/dL 8.6-10.6 eGFR Calculation (Non-) (test code = 3303734464) mL/min/1.73m2 eGFR Calculation () (test code = 1680558665) mL/min/1.73m2 DARWIN (test code = DARWIN) Association [...] imaging tests). Lab Interpretation (test code = 63650-3) Abnormal [facility] Taylor[facility] Function Panel (ALB, T.PRO, BILI T, BU/BC, ALT, AST, ALK PHOS)2020-05-17 00:00:00* Test Item Value Reference Range Interpretation Comme nts TOTAL BILI (test code = 2380685069) 0.4 mg/dL 0.1-1.1 BILI UNCON (test code = 8598360295) 0.3 mg/dL 0.1-1.1 BILI CONJ (test code = 2623007652) 0.0 mg/dL 0-0.3 T PROTEIN (test code = 1089855590) 7.3 g/dL 6.3-8.2 ALBUMIN (test code = 3850732589) 4.3 g/dL 3.5-5 ALK PHOS (test code = 8105339744) 118 U/L 34-122 ALTv (test code = 1742-6) 119 U/L 5-35 H AST(SGOT) (test code = 0475882353) 47 U/L 13-40 H Lab Interpretation (test cod e = 36439-2) Abnormal [facility] TaylorLipase [id number] 00:00:00* Test Item Value Reference Range Interpretation Comme nts LIPASE (test code = 0417267181) 70 U/L 0-220 Lab Interpretation (test cod e = 30605-7) Normal [facility] TaylorCBC with Ehtibzppqkgm4935-36-85 23:49:00* Test Item Value Reference Range Interpretation Comme nts WBC (test code = 6690-2) See_Comment [Automated [employer]] The system which generated this result transmitted reference range: 4.30 - 11.10 10*3/?L. The reference range was not used to interpret this result as normal/abnormal. RBC (test code = 789-8) See_Comment [Automated [employer]] The system which generated this result transmitted [...] 33.3 g/dL 31.6-35.1 RDW-SD (test code = 68196-2) 42.8 fL 39-49.9 RDW-CV (test code = 788-0) 13.5 % 12-15.5 PLT (test code = 777-3) See_Comment [Automated [employer]] The system which generated this result transmitted reference range: 166 - 358 10*3/?L. The reference range was not used to interpret this result as normal/abnormal. MPV (test code = 96908-2) 9.8 fL 9.5-12.9 NRBC/100 WBC (test code = 1104331570) See_Comment [Automated [employer]] The system which generated this result transmitted reference range: 0.0 - 10.0 /100 WBCs. The reference range was not used to interpret this result as normal/abnormal. NRBC x10^3 (test code = 9529926141) <0.01 See_Comment [Automated [employer]] The system which generated this result transmitted reference range: 10*3/?L. The reference range was not used to interpret this result as normal/abnormal. GRAN MAT (NEUT) % (test code = 770-8) 62.5 % IMM GRAN % (test code = 6825480818) 0.50 % LYMPH % (test code = 736-9) 29.8 % MONO % (test code = 5905-5) 5.6 % EOS % (test code = 713-8) 1.1 % BASO % (test code = 706-2) 0.5 % GRAN MAT x10^3(ANC) (test code = 0587422793) 6.65 10*3/uL 1.88-7.09 IMM GRAN x10^3 (test code = 6848320177) 0.05 10*3/uL 0-0.06 LYMPH x10^3 (test code = 731-0) 3.17 10*3/uL 1.32-3.29 MONO x10^3 (test code = 742-7) 0.59 10*3/uL 0.33-0.92 EOS x10^3 (test code = 711-2) 0.12 10*3/uL 0.03-0.39 BASO x10^3 (test code = 704-7) 0.05 10*3/uL 0.01-0.07 [facility] TaylorACETAMINOPHEN2020-11-08 08:24:00* Test Item Value Reference Range Interpretation Comme nts ACETAMINOP (test code = 6086311435) 21.0 ug/mL 10-30 DARWIN (test code = DARWIN) Toxic: Greater joan n 200 ug/mL @ 4 hour post ingestion or greater than 50 ug/mL @ 12 hour post ingestion Lab Interpretation (test code = 83484-4) Normal [facility] TaylorETHANOL2020-11-08 06:37:00* Test Item Value Reference Range Interpretation Comme nts ALCOHOL (test code = 7380269346) <10 mg/dL DARWIN (test code = DARWIN) <10 Enaegqsh48-954 Toxic>100 Depression of TRANSONIC ENGINEER>400 Fatalities Reported [facility] TaylorBasi Metabolic Panel (NA, K, CL, CO2, GLUCOSE, BUN, CREATININE, CA)2020-05-15 06:35:00* Test Item Value Reference Range Interpretation Comme nts NA (test code = 2740698975) 137 mmol/L 135-145 K (test code = 6387493377) 4.0 mmol/L 3.5-5 CL (test code = 7126662825) 106 mmol/L 98-108 CO2 TOTAL (test code = 7318413405) 25 mmol/L 23-31 AGAP (test code = 6614154764) 2-16 BUN (test code = 3392993545) 9 mg/dL 7-23 GLUCOSE (test code = 4237280495) 95 mg/dL 70-110 CREATININE (test code = 1830082672) 0.53 mg/dL 0.5-1.04 CALCIUM (test code = 0149160030) 9.0 mg/dL 8.6-10.6 eGFR Calculation (Non-) (test code = 5006281593) mL/min/1.73m2 eGFR Calculation () (test code = 0541679155) mL/min/1.73m2 DARWIN (test code = DARWIN) Association [...] or abnormalities in imaging tests). [facility] TaylorHep[facility] Function Panel (ALB, T.PRO, BILI T, BU/BC, ALT, AST, ALK PHOS)2020-05-15 06:35:00* Test Item Value Reference Range Interpretation Comme nts TOTAL BILI (test code = 7155428054) 0.4 mg/dL 0.1-1.1 BILI UNCON (test code = 4091799952) 0.2 mg/dL 0.1-1.1 BILI CONJ (test code = 5019940371) 0.0 mg/dL 0-0.3 T PROTEIN (test code = 7260290596) 6.3 g/dL 6.3-8.2 ALBUMIN (test code = 6393301988) 3.8 g/dL 3.5-5 ALK PHOS (test code = 6261553998) 117 U/L 34-122 ALTv (test code = 1742-6) 179 U/L 5-35 H AST(SGOT) (test code = 1645272205) 194 U/L 13-40 H Lab Interpretation (test cod e = 20031-5) Abnormal [facility] TaylorLipase Lvhlj7469-67-54 06:35:00* Test Item Value Reference Range Interpretation Comme [facility] LIPASE (test code = 6783897514) 92 U/L 0-220 Lab Interpretation (test cod e = 36405-3) Normal [facility] TayloraPTT2020-11-08 06:22:00* Test Item Value Reference Range Interpretation Comme nts APTT Patient (test code = 3173-2) See_Comment [Automated message] The system which generated this result transmitted reference range: 23 - 38 Seconds. The reference range was not used to interpret this result as normal/abnormal. DARWIN (test code = DARWIN) The [facility] patient population mean normal value for aPTT is 30 seconds. Lab Interpretation (test code = 36333-7) Normal [facility] TaylorUrinalysis2020-11-08 06:21:00* Test Item Value Reference Range Interpretation Comme nts APPEARANCE (test code = 8452853179) Clear Clear COLOR (test code = 1657152255) Yellow Yellow PH (test code = 0617738218) 4.8-8.0 SP GRAVITY (test code = 1709170419) 1.003-1.030 GLU U QUAL (test code = 9347686059) Normal Normal BLOOD (test code = 0363964874) Negative Negative KETONES (test code = 0476689895) Negative Negative PROTEIN (test code = 2887-8) Negative Negative UROBILIN (test code = 7605524986) Normal Normal BILIRUBIN (test code = 7060598763) Negative Negative NITRITE (test code = 5438001262) Negative Negative LEUK MARC (test code = 5602370176) Negative Negative RBC/HPF (test code = 5035019601) See_Comment [Automated shoppa ge] The system which generated this result transmitted reference range: 0 - 3 HPF. The reference range was not used to interpret this result as normal/abnormal. WBC/HPF (test code = 9214379796) <1 See_Comment [Automated shoppa ge] The system which generated this result transmitted reference range: 0 - 5 HPF. The reference range was not used to interpret this result as normal/abnormal. BACTERIA (test code = 5284761874) Negative Negative MUCOUS (test code = 1208490806) Slight Negative LPF A SQ EPITH (test code = 9222986045) HPF Lab Interpretation (test code = 60557-1) Abnormal [facility] TaylorProthrombin Time (PT) / [id number] 06:20:00 * Test Item Value Reference Range Interpretation Comme nts PROTIME PATIENT (test code = 5964-2) See_Comment [Automated shoppa ge] The system which generated this result transmitted reference range: 12.0 - 14.7 Seconds. The reference range was not used to interpret this result as normal/abnormal. INR (test code = 6301-6) Normal INR <1.1; Warfarin Therapeutic range 2.0 to 3.0 or 2.5 to 3.5, depending upon the indications. Lab Interpretation (test code = 33343-5) Normal [facility] - DRUG SCREEN [id number] 06:19:00* Test Item Value Reference Range Interpretation Comme nts BENZO U (test code = 0831480432) Presumptive Positive Negative A ROSA U (test code = 8707023105) Negative Negative AMPHET (test code = 6573159109) Negative Negative THC (test code = 5074973424) Negative Negative METHADONE (test code = 5223263308) Negative Negative Meth U (test code = 6543405979) Negative Negative OPIATES (test code = 5018764433) Negative Negative Cocaine Metabolite (test code = 3903199836) Negative Negative PROPOXY (test code = 8070422470) Negative Negative Tric U (test code = 0740968447) Negative Negative PCP (test code = 6237501413) Negative Negative OXYCOD (test code = 8172306210) Negative Negative DARWIN (test code = DARWIN) [...] legal testing). Lab Interpretation (test code = 98752-9) Abnormal [facility] with Amqvyajlecdu4211-58-55 06:07:00* Test Item Value Reference Range Interpretation Comme nts WBC (test code = 6690-2) See_Comment [Automated [employer]] The system which generated this result transmitted reference range: 4.30 - 11.10 10*3/?L. The reference range was not used to interpret this result as normal/abnormal. RBC (test code = 789-8) See_Comment [Automated [employer]] The system which generated this result transmitted [...] 34.3 g/dL 31.6-35.1 RDW-SD (test code = 87056-2) 43.4 fL 39-49.9 RDW-CV (test code = 788-0) 13.7 % 12-15.5 PLT (test code = 777-3) See_Comment [Automated messa ge] The system which generated this result transmitted reference range: 166 - 358 10*3/?L. The reference range was not used to interpret this result as normal/abnormal. MPV (test code = 06897-9) 9.7 fL 9.5-12.9 NRBC/100 WBC (test code = 1336380104) See_Comment [Automated [employer] ssage] The system which generated this result transmitted reference range: 0.0 - 10.0 /100 WBCs. The reference range was not used to interpret this result as normal/abnormal. NRBC x10^3 (test code = 6143293809) <0.01 See_Comment [Automated messa ge] The system which generated this result transmitted reference range: 10*3/?L. The reference range was not used to interpret this result as normal/abnormal. GRAN MAT (NEUT) % (test code = 770-8) 50.6 % IMM GRAN % (test code = 9316906573) 0.20 % LYMPH % (test code = 736-9) 42.1 % MONO % (test code = 5905-5) 5.5 % EOS % (test code = 713-8) 1.2 % BASO % (test code = 706-2) 0.4 % GRAN MAT x10^3(ANC) (test code = 5205228812) 4.31 10*3/uL 1.88-7.09 IMM GRAN x10^3 (test code = 6930687504) <0.03 0-0.06 LYMPH x10^3 (test code = 731-0) 3.58 10*3/uL 1.32-3.29 H MONO x10^3 (test code = 742-7) 0.47 10*3/uL 0.33-0.92 EOS x10^3 (test code = 711-2) 0.10 10*3/uL 0.03-0.39 BASO x10^3 (test code = 704-7) 0.03 10*3/uL 0.01-0.07 Lab Interpretation (test code = 07749-3) [facility]normal [facility] TaylorPOCT Qizh2750-19-81 05:53:00* Test Item Value Reference Range Interpretation Comme nts POCT PREG (test code = 1605) Negative On board controls acceptable with C Line (test code = 3574) Present POCT PREG LOT # (test code = 3575) HCG [id number] POCT PREG TEST DATE ( test code = 3576) 10/05/2021 Lab Interpretation (test cod e = 04046-8) Normal [facility] History and Physical Notes Date/Time Note Provider [...] acute, severe Comparison: September 11, 2021 RL: 30063 Ordering Clinician: LEEANNE WISE Technique: Axial CT [...] the ACR Incidental Findings Committee;Journal of the [employer] Volume 7, Issue 10, Pages 618-022, April 2010). CHEST 1 VW Result Date: [...] process is identified in the chest. RL: 1990 END OF REPORT Assessment and plan: Principal [...] Flako Mercado MD 02/16/2023 IM-INTERNAL MEDICINE STAFF [facility] - Health Notes <thead> Date/Time Note Provider Source 2024-07-19 01:23:02 Pt given printed and verbal discharge instructions regarding acute bacterial bronchitis and chest pain, encouraged hydration, Prescriptions provided to preferred pharmacy Discussed antibiotic therapy and to take until [...] with steady gait, in no apparent distress, [facility] 2024-07-19 00:57:31 ERP at bedside. [facility] 2024-07-19 00:09:25 07/18/24 2356 07/19/24 0000 07/19/24 0008 Orthostatic Vitals BP 132/56 (!) 139/92 (!) 157/112 BP Location Left arm Left arm Right leg Position Lying Sitting Standing Pulse 79 78 78 [facility] Jen Merrill RN [facility] 2024-07-18 23:44:12 Patient states "feeling like crap. Every time I stand up everything gets dizzy, black, and I feel like I am going to pass out." [facility] 2024-07-18 22:39:11 Pt brought in by [facility]. Pt ambulatory from stretcher to triage. Pre hospital VS: BP166/106 P75 RR12 O2 97% on room air. EMS report: 324mg ASA taken prior to EMS arrival. Another 324mg of ASA given by EMS. Pt had syncopal episode prior to EMS arrival while walking her dog. Pt c/o chest pain and dizziness when standing and pain in back. Pt went to [facility] yesterday and they said she was low on potassium (was given 4 tablets of potassium). Pt took home medications today NYA Atkinson RN [facility] 2024-07-04 01:30:39 PT D/C home. GCS15, VS stable. Given D/C paperwork. Pt ambulatory at time of discharge. Pt educated on med usage, follow up care, s/s worsening condition, need for hydration. Pt verbalized understanding. Pt ambulated from ED in NAD, pt reports her father is in parking lot waiting for her. Pt verbalized understanding that she needs to have someone drive her home. NYA Ayala RN [facility] 2024-07-03 19:51:20 Pt arrives ambulatory to ED c/o N/V/D x3 days and says today began having right side abdominal pain. NYA Rios RN [facility] 2024-06-21 02:58:12 Pt given printed and verbal discharge instructions regarding cellulitis, & abx trt for abscess. Prescriptions provided Discussed antibiotic therapy and to take until [...] meds given in ER noted upon discharge. Awake, alert oriented, resp reg unlabored, skin w/d, pt leaving amb with steady gait, in no apparent distress. AL HEALTH THERAPIST [facility] 2024-06-21 01:57:43 Pt arrives ambulatory to ED c/o "spider bite" upper right abdomen area. She says she squeezed it right before coming in and puss came out of it, leaving a black hole. So she came in to be evaled. NYA Rios RN [facility] 2024-06-15 00:27:31 Pt given printed and verbal discharge instructions regarding ABD pain, N/V, encouraged hydration, Prescriptions provided Discussed phenergan side affects and to avoid driving/operating machinery/or [...] in no apparent distress, NYA Delgadillo RN [facility] 2024-06-14 22:55:00 Report given to JAMES Delgadillo NYA Emery RN [facility] 2024-06-14 21:23:27 Patient arrived ambulatory to ED c/o abdominal pain that started Saturday. Patient recently had heart cath placed on . States "haven't been keeping anything down. I can't even keep my medications down." NYA Merrill RN [facility] 2024-06-07 02:39:24 Pt given printed and verbal [...] in no apparent distress, NYA Delgadillo RN [facility] 2024-06-07 00:46:48 Report to Leona RAMIREZ. NYA Montelongo RN [facility] 2024-06-06 22:01:17 Patient arrived ambulatory to ED c/o chest pain that started around 1900 tonight. 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 Sharp chest pain that radiates to left shoulder. NYA Merrill RN [facility] 2024-05-28 13:02:38 Chief Complaint Patient presents with Shoulder Pain Pt complains of left shoulder pain that has been in pain for last 3 years. Pain is getting worse. No injury. No occupation. Pt has been doing PT for shoulder. She is also taking methocarbamol for pain however it is not helping. [facility] 13[facility]33[facility]08 Patient given discharge instructions with readback, discussed prescriptions and follow up care. . Steady gait with NAD noted. NYA Davila RN [facility] 2024-05-19 11:42:01 Patient had a fall on Saturday and came into ED to be seen. Had pain meds and scan performed with no significant findings. Patient called her PCP and they told her to go to ER because she could have a concussion or just feel worse. NYA Cronin RN [facility] 2024-05-18 10:27:22 Chief Complaint Patient presents with Physical Patient is fasting. No other issues to discuss Jennifer Del Castillo MA II [facility] 2024-05-17 22:18:24 Pt given printed and verbal [...] in no apparent distress, NYA Delgadillo RN [facility] 2024-05-17 20:40:54 Okay to release information to father Piyush Roca per patient NYA Atkinson RN [facility] 2024-05-17 20:18:[address] scan and brought to 11 with RN and trauma team. Continuous cardiac monitoring and serial vital signs monitored by Santi RAMIREZ. Santi Delgadillo RN [facility] 2024-05-17 19:58:[address] scan with RN and trauma team. Continuous cardiac monitoring and serial vital signs monitored by Santi RAMIREZ. Santi Delgadillo RN [facility] 2024-05-17 18:55:00 Received report from Juliano RAMIREZ [facility] 2024-05-17 18:35:54 Report received from EMS. Trauma protocol initiated. Trauma team members at bedside, primary and secondary survey in progress. Pt placed on continuous cardiac monitoring, pulse oximetry, and serial vital signs. Wellington Dorantes RN [facility] 2024-05-17 18:31:04 Patient arrived by [facility], tripped over a floor tile and hit the occipital area. Unsure of LOC. Patient received 10mg of reglan and morphine 4mg SITE SPECIALIST. [facility] Wellington Dorantes RN [facility] 2024-05-07 21:32:31 Patient discharged to home. Patient [...] in no apparent distress. Cameron Posada RN [facility] 2024-05-07 18:45:11 Pt arrived ambulatory with complaints of lower back pain, lower abdominal pain, and dysuria since yesterday. Took Tramadol at 2pm Aline Lou RN 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- DIAGNOSIS: UTI, GASTROENTERITIS PRESCRIPTION: ZOFRAN AND MACROBID PER PRESCRIPTION DETAILS SENT TO [facility]: [place] GIVEN IN ER FOLLOW UP: PRIMARY [...] NO PHYSICIAN MONTSERRAT TERRAZAS MD Work Phone: [address] [address] CARLOS SOLANO MD Work Phone: [address] [place] [address] ENTER NAME IN NOTES OTHER Future Procedures [...] 11:00pm DISCHARGE PATIENT May 13, 2023 3:41pm Nove mber 2022 Cardiac, BP, Pulse Ox Monitor [...] 11:37pm TRANSFER ROOM June 05, 2023 12:05am Nove mber 2022 Resuscitation Status June 05, 2023 12:12am [...] is unavailable Patient Instructions <tbody> Otitis Externa, Miya-qb-Brbz Allergic Rhinitis, Adult, Ea sy-to-Read Ovarian Cyst, Htev-gv-Zjcb Abdominal Pain, Adult, Easy- to-Read Renal Mass Nonspecific Chest Pain, Adul t, Kaqa-ya-Tfeo Acetaminophen; Hydrocodone t ablets or capsules Sucralfate tablets Pantoprazole tablets Ciprofloxacin tablets Nonspecific Chest Pain, Adul t, Yzor-jg-Vyyi Alprazolam tablets Trazodone Tablets Aspirin Tablets Urinary Tract Infection, [place] lt, Slrs-tq-Libf Dehydration, Adult, Easy-to- Read Urinary Tract Infection, [place] lt, Yfxm-qm-Zngc [facility] [id number] 20:37:07 Pt given printed and verbal discharge [...] gait, in no apparent distress Renato Doan [facility] UniversitySpohqm1501-66-76 18:50:37 Nurse Report Report given to renato. Chief complaint, assessment findings, infusion verify and orders reviewed. Plan of care discussed. Lola Reynoso RN Lola Reynoso [place] [id number] 17:27:35 Pt arrived ambulatory complains of abdominal pain and points to her left upper abdominal. Pt states that last time she had this type of pain it was pancreatitis. Reports pain started at 1300 and reports pain is 9/10 and hurts whenever she eats. Harriett Mejia [facility] UniversityPpgdjy8270-35-66 11:11:13 Chief Complaint Patient presents with Shoulder Pain Left shoulder pain with limited range of motion x 6 months, takes OTC tylenol for the pain as needed but pain is getting worse. 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 Not working currently KelleeMarcio Eczgms8222-17-34 09:19:27 Chief Complaint Patient presents with Hospital F/U [facility] ER follow up with admission on 12/04/2023 for chest pains. She had a stent placed by Dr. Arthur. Jennifer Del Castillo MA II Jennifer Del Castillo MA, [facility] Wwrqeb0534-37-61 10:49:31 Chief Complaint Patient presents with Anxiety Follow up on anxiety/depression. She states that it has gotten worse since last visit. She had an appointment with [facility] this morning and it was canceled due to internet outage. Jennifer Del Castillo MA II [facility] [id number] 13:21:02 Chief Complaint Patient presents with [facility] told her she needed to go to a different doctor because they could not give her anything else Marbella Oh LVN [facility]2024-04-05 00:41:45 Pt given printed and verbal discharge [...] & in no apparent distress. Becky Rios [facility] UniversityPdcqmg9546-11-78 21:25:46 Pt arrived ambulatory but states feeling like she is going to pass out, Pt placed in ED wheelchair. Pt c/o " I have pain in my back on the left side, it mark when I pee, Im nauseous, I feel like Im going to pass out and I have been crapping on myself." Shaneka Atkinson [facility] UniversityEqzrna4941-95-86 22:58:41 Pt discharged with diagnosis of RUQ abd pain and chronic abd pain. Printed and verbal instructions reviewed with and given to pt. Prescriptions given x 2. Pt verbalized understanding of teaching, medications, and recommended follow-up. Denies questions or concerns at this time. Pt ambulatory at discharge. Appears in no apparent distress. No ataxia noted. AL HEALTH THERAPIST Adeline Floyd [facility] UniversityQuqxza3634-94-58 19:46:03 Pt states sharp pain to the RLQ that started today around noon, pt denies any urinary symptoms, vomiting X 2 AL HEALTH THERAPIST Razia Yost [facility] UniversityOawqbv1053-22-67 00:14:00 Awake, alert oriented X4, respiratory even [...] the lobby with steady gait Razia Yost [facility] UniversityToleoz6896-26-04 23:06:10 Received report from Evy RAMIREZ, assuming care. T Brandy Lou [place] [address]-09-02 22:38:[address] scan done. Patient states LQ abdominal pain now 01/14. Guanaco Caceres [place] [address]-09-02 22:00:00 POCT test negative. Patient states RLQ abdominal pain improved briefly with IV Morphine administration, then returned at 03/17. Dr Richards informed, and patient medicated as ordered with Fentanyl 75 mcg slow IVP. T [place] [address]-09-02 21:00:00 Medicated as per order with Zofran 4 mg slow IVP and Morphine 4 mg slow IVP for RLQ abdominal pain 03/17. [place] [address]-09-02 20:17:52 Pt arrived ambulatory with complaints of RLQ abd pain since yesterday. Pt reports N/V/D. Last took Tylenol at 3pm. Denies dysuria but reports frequency. Hx: Anxiety, Depression, PTSD, Pancreatitis Aline Lou [place] [id number] 01:30:22 Discharged home ambulatory. Home instructions given. John Ventura [place] [address]-08-25 19:32:44 Pt CO of N/V, left lower back pain, painful urination and diarrhea since yesterday, states she was admitted last week for pancreatitis. Pt already promethazine tablets today with no relief. Jean Carlos Alegria [facility] - Hmdxhu4694-09-85 19:22:00 [facility] Emergency Department Note Patient Name: Charity Roca Date of : 1980 43 year old female Treatment Room: MT3/MT3 Primary Care Physician: Carlos Solano Patient Escorted by: Family [5] Mode of Arrival: Personal means [1] EMS Treatment Prior to ED Arrival: SITE SPECIALIST treatment: None Travel and Exposure Screening: Symptoms [...] History provided by: Patient and medical records liquor blender used: No Abdominal Pain Pain location: Generalized [...] adenoma on noncontrast imaging. RL: 460 AFC: 53529 Lab Results: Lab Results CBC WITH DIFF [...] POCT PREG TEST DATE COMP. METABOLIC PANEL (03049) NA 139 135 - 145 mmol/L K [...] CONTRAST CBC WITH DIFF COMP. METABOLIC PANEL (06795) LIPASE URINALYSIS POCT TEST Orders Placed This [...] Electronically signed by: Olivia Garcia MD 03/02/23121 [facility]Wuntct2406-71-87 02:22:03 Pt given printed and verbal discharge [...] leaving in no apparent distress, Linda Ayala [facility] UniversityEjvrjh7674-52-65 22:53:36 Pt arrived ambulatory with complaints of [...] she thinks might be from her anxiety. T Aline Lou [facility] UniversityLgvnvk7181-20-59 15:59:15 Problem: Pain Goal: Control of pain [...] Goal: Effective communication Outcome: Adequate for [facility] Beata Lamar [facility] UniversityFtdwol2012-28-10 00:21:19 Problem: Pain Goal: Control of pain [...] Goal: Effective communication Outcome: Progressing as expected [facility] CenterBedvau7886-54-96 16:55:55 Problem: Pain Goal: Control of pain [...] Goal: Effective communication Outcome: Progressing as expected [place] [address]-08-12 03:35:03 Problem: Pain Goal: Control of pain [...] Goal: Effective communication Outcome: Progressing as expected [place] [address]-08-11 19:41:18 Nurse Report Report given to JAMES Gatica. Chief complaint, assessment findings, infusion verify and orders reviewed. Plan of care discussed with both nurses. Stacie Man RN [facility] Stacie Man [place] [address]-08-11 13:40:01 CC: patient presents to the ER [...] amb without assistance. Appears in no distress. [place] [address]-08-11 13:23:00Associated Order(s): EKG-12 Lead ROUTINE ONCE Pre-Procedure Diagnose(s): Chest pain, unspecified type Post-Procedure Diagnose(s): Acute pancreatitis, unspecified complication status, unspecified pancreatitis type [facility] Emergency Department Note Patient Name: Charity Roca Date of : 1980 42 year old female Treatment Room: [place] [address] Primary Care Physician: Carlos Solano Patient Escorted by: Self [9] Mode of Arrival: Personal means [1] EMS Treatment Prior to ED Arrival: SITE SPECIALIST treatment: None Chief Complaint: Chief Complaint Patient [...] the ACR Incidental Findings Committee;Journal of the [employer] Volume 7, Issue 10, Pages [phone], April 2010). CHEST 1 VW Final Result [...] process is identified in the chest. RL: 4022 END OF REPORT Lab Results: reviewed by wa Mild leukocytosis, lipase 2048, liver enzymes WNL [...] 0.01 - 0.07 10*3/uL COMP. METABOLIC PANEL (10995) - Abnormal NA 138 135 - 145 [...] INTERPRETATION CBC WITH DIFF COMP. METABOLIC PANEL (19855) LIPASE Orders Placed This Encounter Medications ibuprofen [...] User Comments 02/15/[address] [facility] -- 02/15/[address] [facility] -- No notes of EC Admission Criteria type on file. 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 [facility]
[2024-08-21] MEDS ORDERED: ALBUTEROL 2.5 MG/3 ML NEB SOL ONE (22:24)
[2024-08-21] MEDS ORDERED: IPRATROPIUM BROM 0.5MG/2.5ML ONE (22:24)
[2024-08-21] MEDS ORDERED: METHYLPREDNISOLONE 125 MG INJ ONE (22:25)
--- NOTE | 2024-08-21 22:26 | RAD REPORT ---
Procedure: Chest Single View HISTORY: Chest pain COMPARISON: July 2024 FINDINGS: The lungs appear clear of acute infiltrate. No significant pleural effusion noted. The heart is normal size. IMPRESSION: No acute abnormality is displayed.
[2024-08-21 22:39] LABS: Specific Gravity > 1.030 (1.005-1.030); Urine Bacteria None Seen /HPF (<20); Urine Bilirubin NEGATIVE (Negative); Urine Blood Trace (Negative); Urine Clarity Extremely Turbid (Clear); Urine Color Yellow (Yellow); Urine Culture Reflex Order NOT NEEDED; Urine Glucose 3+ (Negative); Urine Ketones TRACE (Negative); Urine Microscopic Reflex YN ORDER UMIC; Urine Mucus 1+ /HPF (None Seen); Urine Nitrite NEGATIVE (Negative); Urine Protein TRACE (Negative); Urine RBC <5 /HPF (None Seen); Urine Urobilinogen Normal (Normal); Urine WBC <5 /HPF (<5); Urine Yeast (Budding) Trace /HPF (None Seen)
[2024-08-21 22:43] LABS: SARS-CoV-2 Antigen CONTROL BLUE LINE VIS/BG OK; SARS-CoV-2 Antigen Rapid Res Negative (Negative)
[2024-08-21 22:46] LABS: Absolute Basophils 0.1 K/uL (0-0.5); Absolute Neutrophil 16.8 K/uL (1.8-8.0); Basophils % 0.7 % (0-1.3); Hematocrit 35.6 % (36.0-45.0); Lymphocytes % 10.2 % (15.3-44.8); MCH 26.3 pg (27.0-35.0); MCHC 33.7 g/dL (32.0-36.0); MCV 77.9 fL (80-100); MPV 7.3 fL (7.6-11.3); Monocytes % 5.1 % (3.3-12.3); Platelets 377 thou/uL (152-406); RBC Red Blood Cell Count 4.56 M/uL (3.86-4.86)
[2024-08-21 22:47] LABS: PT Prothrombin Time 11.4 SECONDS (9.4-12.5); PTT, Activated Partial Thromb 26.5 SECONDS (24.3-36.9); Protime INR 1.09
[2024-08-21 22:54] LABS: ALT/SGPT 18 U/L (13-56); Albumin 2.9 g/dL (3.4-5.0); Albumin/Globulin Ratio 0.7 (1.1-1.8); Alkaline Phosphatase 67 U/L (45-117); Anion Gap 8.5 mEq/L (5.0-15.0); BUN Blood Urea Nitrogen 11 mg/dL (7-18); Bicarbonate 26 mEq/L (21-32); Globulin 3.9 g/dL (2.3-3.5); Glomerular Filtration Rate 80 ml/min (=/>90); Glucose Level 154 mg/dL (74-106); Potassium 3.5 mEq/L (3.5-5.1); Protein, Total 6.8 g/dL (6.4-8.2); Sodium Level 140 mEq/L (136-145); Troponin High Sensitivity 9.9 pg/mL (<58.9)
[2024-08-21 22:55] LABS: AST/SGOT < 10 U/L (15-37); Bilirubin Total < 0.2 mg/dL (0.2-1.0)
[2024-08-21] MEDS ORDERED: NA CHLORIDE 0.9% 1,000 ML ONE (23:24)
[2024-08-21] MEDS ORDERED: ONDANSETRON 4 MG/2 ML VIAL ONE (23:24)
[2024-08-21] MEDS ORDERED: ACETAMINOPHEN 500 MG TAB ONE (23:42)
[2024-08-21] MEDS ORDERED: KETOROLAC 30 MG/ML INJ ONE (23:42)
[2024-08-22 00:44] LABS: Blood Morphology Comment NOT SEEN (NOT SEEN); Platelet Estimate ADEQ
--- NOTE | 2024-08-22 01:19 | ER ---
Nurse's Notes [facility] Name: Charity Hanks Age: 44 yrs Sex: Female : 1980 Arrival Date: 08/21/2024 Time: 20:45 Bed 16 Private MD: Diagnosis: Severe sepsis without septic shock;Bronchopneumonia, unspecified organism Presentation: 08/21 21:38 Chief complaint: Patient states: was diagnosed with bronchitis 3 weeks ago, was given a al5 solumedrol pack, inhaler, mucinex, but no antibiotics. states she has been getting worse. Coronavirus screen: congestion, cough unrelated to allergies, shortness of breath. Ebola Screen: No symptoms or risks identified at this time. Resp Distress? Moderate respiratory distress is noted. The charge nurse has been notified. Initial Sepsis Screen: Does the patient meet any 2 criteria? RR > 20 per min. HR > 90 bpm. Does the patient have a suspected source of infection? If YES to both, name of provider notified: Claudia Harris PA-C. Risk Assessment: Do you want to hurt yourself or someone else? Patient reports no desire to harm self or others. Onset of symptoms was August 03, 2024. 21:38 Method Of Arrival: Ambulatory al5 21:38 Acuity: CARLOS 2 al5 Triage Assessment: 21:43 General: Appears distressed, uncomfortable, Behavior is calm, cooperative. Pain: al5 Complains of pain in chest. EENT: No signs and/or symptoms were reported regarding the EENT system. Neuro: Level of Consciousness is awake, alert, obeys commands, Oriented to person, place, time, situation. Cardiovascular: Capillary refill < 3 seconds Patient's skin is warm and dry. Chest pain. Respiratory: Reports shortness of breath cough that is labored breathing pain with cough Airway is patent Respiratory effort is even, labored, Respiratory pattern is regular, symmetrical, Breath sounds are clear in right upper lobe, left upper lobe, left posterior upper lobe and right posterior upper lobe Breath sounds with crackles in right middle lobe, left lower lobe, right lower lobe, left posterior lower lobe, right posterior middle lobe and right posterior lower lobe. GI: Reports diarrhea, nausea, vomiting. : No signs and/or symptoms were reported regarding the genitourinary system. Derm: Skin is intact, is healthy with good turgor, Skin is pink, warm \T\ dry. normal. Musculoskeletal: No signs and/or symptoms reported regarding the musculoskeletal system. 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 - Infectious Disease History:: Denies. - Social history:: Smoking status: Patient denies any tobacco usage or history of. Screenin:[address] [facility] ED Fall Risk Assessment (Adult) History of falling in the last 3 months, kj2 including since admission No falls in past 3 months (0 pts) Confusion or Disorientation No (0 pts) Intoxicated or Sedated No (0 pts) Impaired Gait No (0 pts) Mobility Assist Device Used No (0 pt) Altered Elimination No (0 pt) Score/Fall Risk Level 0 - 2 = Low Risk Maintained a safe environment, Hourly rounding (assess needs \T\ fall precautionary measures) done. Abuse screen: Denies threats or abuse. Denies injuries from another. Nutritional screening: No deficits noted. Tuberculosis screening: No symptoms or risk factors identified. Assessment: 22:26 Reassessment: Patient appears in no apparent distress at this time. kj2 22:57 General: Appears in no apparent distress. uncomfortable, Behavior is calm, cooperative, kj2 appropriate for age. Pain: Complains of pain in chest Pain currently is 9 out of 10 on a pain scale. Neuro: No deficits noted. Level of Consciousness is awake, alert, obeys commands, Oriented to person, place, time, situation, Appropriate for age. Cardiovascular: Reports chest pain, shortness of breath, Heart tones S1 S2 present Capillary refill < 3 seconds in bilateral fingers Patient's skin is warm and dry. Respiratory: Airway is patent Trachea midline Respiratory effort is even, unlabored, Respiratory pattern is regular, symmetrical, Breath sounds are diminished in left upper lobe, left lower lobe, left posterior upper lobe and left posterior lower lobe the patient has mild shortness of breath. GI: No signs and/or symptoms were reported involving the gastrointestinal system. : No signs and/or symptoms were reported regarding the genitourinary system. EENT: No signs and/or symptoms were reported regarding the EENT system. Derm: No signs and/or symptoms reported regarding the dermatologic system. Musculoskeletal: No signs and/or symptoms reported regarding the musculoskeletal system. 23:59 Reassessment: Patient appears in no apparent distress at this time. No changes from kj2 previously documented assessment. Patient is alert, oriented x 3, equal unlabored respirations, skin warm/dry/pink. Patient states symptoms have not improved. 08/22 01:09 Reassessment: Patient appears in no apparent distress at this time. No changes from bm8 previously documented assessment. Patient and/or family updated on plan of care and expected duration. Pain level reassessed. Patient is alert, oriented x 3, equal unlabored respirations, skin warm/dry/pink. Patient states symptoms have not improved. 02:26 Reassessment: Patient appears in no apparent distress at this time. Patient and/or bm8 family updated on plan of care and expected duration. Pain level reassessed. Patient is alert, oriented x 3, equal unlabored respirations, skin warm/dry/pink. Patient states symptoms have improved. Pain: Complains of pain in chest Pain currently is 5 out of 10 on a pain scale. Quality of pain is described as aching. Vital Signs: 08/21 21:38 BP 150 / 98; Pulse 125; Resp 23; Temp 98.6; Pulse Ox 98% on R/A; Weight 104.33 kg; al5 Height 5 ft. 2 in. ; 22:57 BP 137 / 60; Pulse 113; Resp 20; Temp 98.6; Pulse Ox 95% ; Pain 9/10; kj2 23:59 BP 157 / 77; Pulse 104; Resp 20; Temp 97.7; Pulse Ox 94% on R/A; Pain 6/10; kj2 08/22 01:09 BP 143 / 96; Pulse 72; Resp 20; Temp 97.7; Pulse Ox 100% on R/A; Pain 6/10; bm8 02:26 BP 132 / 38; Pulse 99; Resp 20; Temp 97.7; Pulse Ox 98% ; Pain 5/10; bm8 08/21 21:38 Body Mass Index 42.07 (104.33 kg, 157.48 cm) al5 22:57 Pain Scale: Adult kj2 23:59 Pain Scale: Adult kj2 08/22 01:09 Pain Scale: Adult bm8 02:26 Pain Scale: Adult bm8 Radha Coma Score: 08/21 22:57 Eye Response: spontaneous(4). Motor Response: obeys commands(6). Verbal Response: kj2 oriented(5). Total: 15. 23:59 Eye Response: spontaneous(4). Motor Response: obeys commands(6). Verbal Response: kj2 oriented(5). Total: 15. 08/22 01:09 Eye Response: spontaneous(4). Motor Response: obeys commands(6). Verbal Response: bm8 oriented(5). Total: 15. 02:26 Eye Response: spontaneous(4). Motor Response: obeys commands(6). Verbal Response: bm8 oriented(5). Total: 15. ED Course: 08/21 20:45 Patient arrived in ED. jj6 20:49 Claudia Harris PA-C is PHCP. sb4 20:49 Marty Singh MD is Attending Physician. sb4 21:42 Triage completed. al5 21:42 Arm band placed on right wrist. Patient placed in waiting room, in view of staff al5 members, on pulse oximetry, Patient charge nurse notified. 21:55 EKG done, by ED staff, reviewed by Claudia Harris PA-C. al5 22:13 Chest Single View XRAY In Process Unspecified. EDMS 22:20 Josi Jung, RN is Primary Nurse. kj2 22:20 Inserted saline lock: 20 gauge in left forearm, using aseptic technique. Blood kj2 collected. Flushed with 10 mL NS. 22:20 No provider procedures requiring assistance completed. Initial lab(s) drawn, by me, kj2 sent to lab. First set of blood cultures drawn by me. Patient maintains SpO2 saturation greater than 95% on room air. 22:36 Patient has correct armband on for positive identification. Bed in low position. Call kj2 light in reach. Provided Education on: call light. 22:57 Client placed on continuous cardiac and pulse oximetry monitoring. NIBP monitoring kj2 applied. Pulse ox on. NIBP on. Door closed. Noise minimized. Warm blanket given. Pillow given. Verbal reassurance given. Head of bed elevated. 08/22 00:31 Chest For PE Angio CT In Process Unspecified. EDMS 01:19 Moshe Jones MD is Hospitalizing Provider. sb4 02:26 Patient admitted, IV remains in place. bm8 Administered Medications: 08/21 22:34 Drug: MethylPrednisoLONE IVP 125 mg IVP once Route: IVP; Site: left forearm; kj2 22:59 Follow up: Response: No adverse reaction kj2 22:35 Drug: DuoNeb Nebulize (3:1) (2.5 mg - 0.5 mg) 3 ml Nebulizer once Route: Nebulizer; kj2 22:59 Follow up: Response: No adverse reaction kj2 23:30 Drug: NS 0.9% IV 1000 ml IV at 1000 ml once; to be given as a bolus over 60 minutes kj2 Route: IV; Rate: 1000 ml; Site: left forearm; 08/22 00:39 Follow up: Response: No adverse reaction; IV Status: Completed infusion; IV Intake: bm8 1000ml 08/21 23:30 Drug: Ondansetron IVP 4 mg IVP once; over 2 minutes Route: IVP; Site: left forearm; kj2 08/22 00:02 Follow up: Response: No adverse reaction kj2 08/21 23:59 Drug: Ketorolac IVP 15 mg IVP once Route: IVP; Site: left forearm; kj2 08/22 00:39 Follow up: Response: No adverse reaction bm8 08/21 23:59 Drug: Acetaminophen PO 1000 mg PO once Route: PO; kj2 08/22 00:39 Follow up: Response: No adverse reaction bm8 01:28 Drug: fentaNYL (PF) IVP 50 mcg IVP once Route: IVP; Site: left forearm; bm8 01:46 Follow up: Response: No adverse reaction bm8 01:29 Drug: Rocephin IV 1 grams IV at calculated rate once; Given slow IV push per pharmacy bm8 instructions Route: IV; Rate: calculated rate; Site: left forearm; 01:46 Follow up: Response: No adverse reaction; IV Status: Completed infusion; IV Intake: [id number] 01:46 Drug: AZITHromycin IVPB 500 mg IVPB once over 1 hrs; (mix in 250 mL NS) Route: IVPB; bm8 Infused Over: 1 hrs; Site: left forearm; 02:27 Follow up: Response: No adverse reaction; IV Status: Completed infusion; IV Intake: bm8 250ml Medication: 08/21 22:36 VIS not applicable for this client. kj2 Intake: 08/22 00:39 IV: 1000ml; Total: 1000ml. bm8 01:46 IV: 50ml; Total: 1050ml. bm8 02:27 IV: 250ml; Total: 1300ml. bm8 Outcome: 01:19 Decision to Hospitalize by Provider. sb4 02:26 Admitted to ER Hold. Please see [facility] for further documentation. bm8 02:26 Condition: stable 02:26 Instructed on follow up and referral plans. the need for admit, Demonstrated understanding of instructions, follow-up care, medications, 11:58 Admitted to Med/surg accompanied by tech, via wheelchair, room 225, with chart, Report me1 called to faxed, receipt confirmed with Rosy 12:59 Patient left the ED. me1 Signatures: Dispatcher [employer] EDSarah Hutchinson Sophia, PA-C PA-C sb4 Yaritza Jane, RN RN me1 Dayne Moody, RN RN bm8 Becky Marshall RN RN al5 Josi Jung, RN RN kj2
--- NOTE | 2024-08-22 01:19 | EDPHYS ---
Physician Documentation [facility] Name: Charity Hanks Age: 44 yrs Sex: Female : 1980 Arrival Date: 08/21/2024 Time: 20:45 Bed 16 Private MD: ED Physician Marty Singh HPI: 08/21 21:46 This 44 yrs old Female presents to ER via Ambulatory with complaints of Cough, sb4 Congestion, Shortness Of Breath. 21:46 cough, congestion, sob, chest tightness x 3 weeks. saw PCP, was diagnosed with sb4 bronchitis, prescribed steroid pack and inhaler, no improvement. patient states her symptoms have worsened and she has had fever too, been weak, isn't eating or drinking much. 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 - Infectious Disease History:: Denies. - Social history:: Smoking status: Patient denies any tobacco usage or history of. ROS: 21:46 Abdomen/GI: Negative for abdominal pain, nausea, vomiting, diarrhea, and constipation, sb4 21:46 Constitutional: Positive for chills, fever, malaise, poor PO intake, 21:46 Cardiovascular: Positive for chest pain, 21:46 Respiratory: Positive for cough, shortness of breath, wheezing, 21:46 All other systems are negative, Exam: 21:46 Head/Face: Normocephalic, atraumatic. Eyes: Extra-ocular motions intact. Periorbital sb4 areas with no swelling, redness, or edema. Skin: Warm, dry with normal turgor. Normal color with no rashes, no lesions, and no evidence of cellulitis. 21:46 Constitutional: The patient appears alert, awake, in obvious distress, mildly distressed, uncomfortable, 21:46 Cardiovascular: Rate: tachycardic, Rhythm: regular, 21:46 Respiratory: mild respiratory distress is noted, Respirations: labored breathing, Breath sounds: wheezing: expiratory that is mild, is scattered, Vital Signs: 21:38 BP 150 / 98; Pulse 125; Resp 23; Temp 98.6; Pulse Ox 98% on R/A; Weight 104.33 kg; al5 Height 5 ft. 2 in. ; 22:57 BP 137 / 60; Pulse 113; Resp 20; Temp 98.6; Pulse Ox 95% ; Pain 9/10; kj2 23:59 BP 157 / 77; Pulse 104; Resp 20; Temp 97.7; Pulse Ox 94% on R/A; Pain 6/10; kj2 08/22 01:09 BP 143 / 96; Pulse 72; Resp 20; Temp 97.7; Pulse Ox 100% on R/A; Pain 6/10; bm8 02:26 BP 132 / 38; Pulse 99; Resp 20; Temp 97.7; Pulse Ox 98% ; Pain 5/10; bm8 08/21 21:38 Body Mass Index 42.07 (104.33 kg, 157.48 cm) al5 22:57 Pain Scale: Adult kj2 23:59 Pain Scale: Adult kj2 08/22 01:09 Pain Scale: Adult bm8 02:26 Pain Scale: Adult bm8 Radha Coma Score: 08/21 22:57 Eye Response: spontaneous(4). Motor Response: obeys commands(6). Verbal Response: kj2 oriented(5). Total: 15. 23:59 Eye Response: spontaneous(4). Motor Response: obeys commands(6). Verbal Response: kj2 oriented(5). Total: 15. 08/22 01:09 Eye Response: spontaneous(4). Motor Response: obeys commands(6). Verbal Response: bm8 oriented(5). Total: 15. 02:26 Eye Response: spontaneous(4). Motor Response: obeys commands(6). Verbal Response: bm8 oriented(5). Total: 15. MDM: 08/21 20:49 Medical Screening Exam initiated sb08/22 00:44 Data reviewed: vital signs, nurses notes, lab test result(s), EKG, radiologic studies, sb4 I have discussed the patient's presentation/case with the attending Emergency Department Physician;. 02:11 Differential Diagnosis: Obstructed Airway Bronchitis Influenza Upper Respiratory sp4 Infection Sinusitis. 08/21 21:43 Order name: Blood Culture Adult (2) sb4 08/21 21:43 Order name: CBC with Diff; Complete Time: 00:44 sb4 08/21 21:43 Order name: CMP; Complete Time: 23:01 sb4 08/21 21:43 Order name: Lactate w/ 2H reflex if indic.; Complete Time: 23:01 sb4 08/21 21:43 Order name: Protime (+inr); Complete Time: 22:53 sb4 08/21 21:43 Order name: Ptt, Activated; Complete Time: 22:53 sb4 08/21 21:43 Order name: Urinalysis w/ reflexes; Complete Time: 22:44 sb4 08/21 21:43 Order name: Troponin High Sensitivity; Complete Time: 23:01 sb4 08/21 21:43 Order name: SARS RAPID; Complete Time: 22:44 sb4 08/21 21:43 Order name: Flu; Complete Time: 22:35 sb4 08/21 21:43 Order name: RSV; Complete Time: 22:35 sb4 08/21 22:49 Order name: CBC Smear Scan; Complete Time: 00:44 EDMS 08/21 23:00 Order name: Ghost Lactate-NO COLLECT Timer; Complete Time: 00:58 EDMS 08/22 00:39 Order name: Lactate w/ 2H reflex if indic.; Complete Time: 17: sb4 08/22 01:33 Order name: Ghost Lactate-NO COLLECT Timer; Complete Time: 17:01 EDMS 08/22 02:22 Order name: Basic Metabolic Panel EDMS 08/22 02:22 Order name: Basic Metabolic Panel EDMS 08/22 02:22 Order name: CBC with Automated Diff EDMS 08/22 02:22 Order name: CBC with Automated Diff EDMS 08/22 02:22 Order name: Lipid Profile EDMS 08/22 02:22 Order name: Lipid Profile EDMS 08/22 02:22 Order name: Troponin High Sensitivity; Complete Time: 17:01 EDMS 08/22 02:23 Order name: Hemoglobin A1c EDMS 08/22 07:54 Order name: CBC with Automated Diff; Complete Time: 17:01 EDMS 08/22 07:58 Order name: Glucose, Ancillary Testing; Complete Time: 17:01 EDMS 08/22 08:02 Order name: Basic Metabolic Panel; Complete Time: 17:01 EDMS 08/22 08:02 Order name: Lipid Profile; Complete Time: 17: EDMS 08/22 09:48 Order name: Lactate Sepsis 2 HR Follow-up; Complete Time: 17: EDMS 08/22 12:04 Order name: Glucose, Ancillary Testing; Complete Time: 17: EDMS 08/21 21:43 Order name: Chest Single View XRAY; Complete Time: 22:27 sb4 08/21 23:27 Order name: Chest For PE Angio CT; Complete Time: 17: sb4 08/21 21:43 Order name: Cardiac monitoring; Complete Time: 22:26 sb4 08/21 21:43 Order name: EKG - Nurse/Tech; Complete Time: 21:55 sb4 08/21 21:43 Order name: IV Saline Lock - Large Bore; Complete Time: 22: sb4 08/21 21:43 Order name: Labs collected and sent; Complete Time: 22: sb4 08/21 21:43 Order name: O2 Per Protocol; Complete Time: : sb4 08/21 21:43 Order name: O2 Sat Monitoring; Complete Time: : sb4 08/21 21:43 Order name: Vital Signs; Complete Time: 22:26 sb4 EC/14 21:59 Rate is 116 beats/min. Rhythm is regular, Sinus tachycardia. CO interval is normal at sb4 142 msec. QRS interval is normal at 70 msec. QT interval is normal at 316 msec. No Q waves. T waves are Normal. No ST changes noted. Clinical impression: Sinus tachycardia. Interpreted by me. Reviewed by me. Administered Medications: 22:34 Drug: MethylPrednisoLONE IVP 125 mg IVP once Route: IVP; Site: left forearm; kj2 22:59 Follow up: Response: No adverse reaction kj2 22:35 Drug: DuoNeb Nebulize (3:1) (2.5 mg - 0.5 mg) 3 ml Nebulizer once Route: Nebulizer; kj2 22:59 Follow up: Response: No adverse reaction kj2 23:30 Drug: NS 0.9% IV 1000 ml IV at 1000 ml once; to be given as a bolus over 60 minutes kj2 Route: IV; Rate: 1000 ml; Site: left forearm; 08/22 00:39 Follow up: Response: No adverse reaction; IV Status: Completed infusion; IV Intake: bm8 1000ml 08/21 23:30 Drug: Ondansetron IVP 4 mg IVP once; over 2 minutes Route: IVP; Site: left forearm; kj08/22 00:02 Follow up: Response: No adverse reaction 08/21 23:59 Drug: Ketorolac IVP 15 mg IVP once Route: IVP; Site: left forearm; kj08/22 00:39 Follow up: Response: No adverse reaction 08/21 23:59 Drug: Acetaminophen PO 1000 mg PO once Route: PO; kj2 08/22 00:39 Follow up: Response: No adverse reaction bm8 01:28 Drug: fentaNYL (PF) IVP 50 mcg IVP once Route: IVP; Site: left forearm; bm8 01:46 Follow up: Response: No adverse reaction bm8 01:29 Drug: Rocephin IV 1 grams IV at calculated rate once; Given slow IV push per pharmacy bm8 instructions Route: IV; Rate: calculated rate; Site: left forearm; 01:46 Follow up: Response: No adverse reaction; IV Status: Completed infusion; IV Intake: [id number] 01:46 Drug: AZITHromycin IVPB 500 mg IVPB once over 1 hrs; (mix in 250 mL NS) Route: IVPB; bm8 Infused Over: 1 hrs; Site: left forearm; 02:27 Follow up: Response: No adverse reaction; IV Status: Completed infusion; IV Intake: bm8 250ml Disposition: 02:11 Co-signature as Attending Physician, Marty Singh MD I agree with the assessment sp4 and plan of care. I reviewed the patient's care provided by Advanced Practice Provider \T\ agree w/ the diagnosis \T\ care plan. I personally saw the pt \T\ performed a substantive portion of the visit, incldng all aspects of the (History/Exam/Medical Decision Making). Disposition Summary: 08/22/24 01:19 Hospitalization Ordered Notes: Hospitalization Status: Inpatient Admission sb4 Provider: Moshe Jones sbYue Condition: Fair sb4 Problem: new sb4 Symptoms: are unchanged sb4 Bed/Room Type: Standard sb4 Location: Telemetry/MedSurg (Inpatient)(08/22/24 11:15) ja1 Room Assignment: 225(08/22/24 11:15) ja1 Diagnosis - Severe sepsis without septic shock sb4 - Bronchopneumonia, unspecified organism sb4 Forms: - Medication Reconciliation Form sb4 - SBAR form sb4 - Leadership Thank You Letter sb4 Signatures: Dispatcher [employer] EDMS Bebo Varghese, RN RN ja1 Heide Jeffrey, RN RN vc1 Claudia Harris, PA-C PA-C sb4 Marty Singh MD MD sp4 Dayne Moody RN RN bm8 Becky Marshall RN RN al5 Josi Jung, RN RN kj2 Corrections: (The following items were deleted from the chart) 08/21 21:43 21:43 Chest Single View+[email or web address].[email or web address] ordered. EDMS EDMS 22:26 21:43 Accucheck ordered. sb4 kj2 23:28 23:28 Chest Pa And Lat (2 Views)+RAD.[email or web address].[email or web address] ordered. EDSD EDSD 08/22 02:14 01:19 Telemetry/MedSurg (Inpatient) sb4 vc1 02:14 01:19 sb4 vc1 11:15 02:14 [facility] ER HOLD vc1 ja1 11:15 02:14 ERHOLD- vc1 ja1
[2024-08-22] MEDS ORDERED: AZITHROMYCIN 500 MG INJ IVPB ONE ×2 (01:20→08:58)
[2024-08-22] MEDS ORDERED: CEFTRIAXONE 1000 MG/VIAL ONE ×2 (01:20→08:58)
--- NOTE | 2024-08-22 01:20 | RAD REPORT ---
CTA THORAX - PULMONARY ARTERIES HISTORY: Suspected pulmonary embolus. COMPARISON: None. TECHNIQUE: Intravenous low osmolar contrast. Coronal and sagittal reformations including 3D maxim um intensity projections. This exam was performed according to our departmental dose-optimization program, which includes autom ated exposure control, adjustment of the mA and/or kV according to patient size and/or use of iterative reconstruction technique. FINDINGS: PULMONARY ARTERIAL SYSTEM: Contrast bolus is adequate. No CT evidence for pulmonary embolism. Main pulmonary artery measuring 3.7 cm. CARDIAC: Normal. AORTA/VASCULAR: No aneurysm. LYMPH NODES/MEDIASTINUM: No thoracic adenopathy. CENTRAL AIRWAYS: Central airways are patent. LUNGS: No pulmonary infiltrates or masses. PLEURA: Normal. ESOPHAGUS: Collapsed and not well assessed by CT, without obvious abnormality. THYROID: Negative, where seen. CHEST WALL: Normal. UPPER ABDOMEN: Calcified granuloma in the spleen. Cholecystectomy. 2.4 cm left adrenal lesion with attenuation of -5HU. THORACIC SKELETAL: No acute finding. ADDITIONAL CHEST FINDINGS: None. IMPRESSION: 1. No evidence of acute pulmonary embolus. 2. No acute thoracic findings. 3. Main pulmonary artery measuring 3.7 cm, can be seen in setting of pulmonary arterial hypertensio n. 4. 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 No follow-up imag ing is recommended. Electronically signed by: Liz Holden MD 08/22/2024 01:11 AM [facility] Z9 Due to temporary technical issues with the PACS/Toplist reporting system, reports are being melita d by the in-house radiologist without review as a courtesy to ensure prompt reporting the interpreting radiologist is fully responsible for the content of the report. Transcribed Date/Time: 08/22/2024 1:19 AM
[2024-08-22] MEDS ORDERED: NA CHLORIDE 0.9% 250 ML ONE ×2 (01:21→08:59)
[2024-08-22] MEDS ORDERED: NA CHLORIDE 0.9% 50 ML ONE ×2 (01:21→08:59)
[2024-08-22] MEDS ORDERED: FENTANYL CITR 100 MCG/2 ML ONE (01:26)
[2024-08-22] MEDS ORDERED: ACETAMINOPHEN 500 MG TAB PO PRN ×2 (02:15→13:57)
--- NOTE | 2024-08-22 02:15 | P.HP ---
Certification for Inpatient Patient admitted to: Observation With expected LOS: <2 Midnights Practitioner: I am a practitioner with admitting privileges, knowledge of patient current condition, hospital course, and medical plan of care. Services: Services provided to patient in accordance with Admission requirements found in Title 42 Section 412.3 of the Code of Federal Regulations Patient History Date of Service: 08/22/24 Reason for admission: Shortness of breath cough fever History of Present Illness: Patient is 44 years of age no prior history of any pulmonary complaints has been sick for the past 4 weeks complaining of bronchitis was treated with a Medrol Dosepak by her PCP did not improve became worse started having more fever coughing shortness of breath vomiting and it appeared in the emergency department history of coronary artery disease Allergies No Known Allergies Allergy (Verified 06/11/24 01:05) Home Medications: Suvorexant [Belsomra] 20 mg PO BEDTIME 12/05/23 hydrOXYzine pamoate [Hydroxyzine Pamoate] 1 tab PO BID 12/05/23 Aspirin [Adult Aspirin Regimen] 81 mg PO DAILY 30 Days #30 tab 12/06/23 Clopidogrel Bisulfate [Plavix*] 75 mg PO DAILY 30 Days #30 tab 12/06/23 LORazepam [Ativan*] 0.5 mg PO BIDP PRN 05/11/24 Metoprolol Succinate [Toprol Xl*] 25 mg PO DAILY 05/11/24 Rosuvastatin [Crestor*] 20 mg PO BEDTIME 05/11/24 Isosorbide Mononitrate [Isosorbide Mononitrate ER] 90 mg PO DAILY 30 Days #90 tab 05/12/24 Sertraline [Zoloft*] 150 mg PO DAILY 06/11/24 - Past Medical/Surgical History Diabetic: No -: Anxiety/depression -: Bipolar -: PTSD -: HLD -: RI -: Angina -: HTN -: Cholecystectomy -: tonsillectomy -: cardiac stent x1 Psychosocial/ Personal History: Unemployed, lives at home with her father and 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 - Family History Mother -: Heart disease Father -: Heart disease Brother Notes: bipolar. anxiety. depression - Social History Alcohol use: No CD- Drugs: No Caffeine use: Yes Review of Systems 10-point ROS is otherwise unremarkable General: Fever, Weakness Respiratory: Cough, Shortness of Breath Physical Examination - Vital Signs Temperature: 98.6 F Blood Pressure: 150/98 Pulse: 125 Respirations: 23 Pulse Ox (%): 95 - Physical Exam General: Alert, Oriented x3, Mild distress Neck: Supple Respiratory: Diminished, Expiratory wheezes Cardiovascular: No edema, Regular rate/rhythm, Normal S1 S2 Gastrointestinal: Normal bowel sounds, Soft and benign Musculoskeletal: No clubbing, No swelling Integumentary: No rashes, No breakdown Neurological: Normal speech, Normal strength at 5/5 x4 extr - Studies Laboratory Data (last 24 hrs) 08/21/24 08/21/24 08/21/24 22:20 22:20 22:20 WBC 20.00 H Hgb 12.0 Hct 35.6 L Plt Count 377 PT 11.4 INR 1.09 APTT 26.5 Sodium 140 Potassium 3.5 BUN 11 Creatinine 0.90 Glucose 154 H Total Bilirubin < 0.2 L AST < 10 L ALT 18 Alkaline Phosphatase 67 Microbiology Data (last 24 hrs): 08/21/24 21:56 Nasopharnyx Influenza Type A Antigen Screen - Final 08/21/24 21:56 Nasopharnyx Influenza Type B Antigen Screen - Final 08/21/24 21:56 Nasopharnyx Respiratory Syncytial Virus Ag Scrn - Final Assessment and Plan - Problems (Diagnosis) (1) Respiratory distress Current Visit: Yes Status: Acute Plan: Patient is 44 years of age no prior pulmonary complaints has been sick for the past 4 weeks complaining of worsening dyspnea cough congestion fever chills associated with some diarrhea history of coronary artery disease had a stent placed patient is an active smoker 5 to 6 cigarettes a day did not improve with the Medrol Dosepak she is also had azithromycin will admit treat with bronchodilators white count is mildly elevated blood sugar is also elevated check A1c treat with with antibiotics viral screening so far negative may have underlying bronchiolitis - Advance Directives Does patient have a Living Will: No Does patient have a Durable POA for Healthcare: No
[2024-08-22] MEDS ORDERED: GLUCAGON 1 MG/VIAL IM PRN ×2 (02:21→07:26)
[2024-08-22] MEDS ORDERED: D10W 125 ML IV PRN ×2 (02:21→07:26)
[2024-08-22 02:59] VITALS: BMI 42.0
[2024-08-22] MEDS ORDERED: IPRATROPIUM BROM 0.5MG/2.5ML NEB SCH (03:00)
[2024-08-22] MEDS: IPRATROPIUM BROM 0.5MG/2.5ML NEB SCH (07:00)
[2024-08-22] MEDS: ALBUTEROL 2.5 MG/3 ML NEB SOL NEB SCH (07:00)
[2024-08-22] MEDS ORDERED: HYDRALAZINE HCL 20 MG/ML VIAL IV PRN (07:27)
[2024-08-22] MEDS: INSULIN REGULAR (HUMAN) 100 UNIT/ML SQ SCH (07:30)
[2024-08-22 07:50] LABS: Absolute Lymphocytes (CBC) 1.1 K/uL (0.7-4.9); Absolute Monocytes 0.2 K/uL (0.1-1.3); Absolute Neutrophil 13.7 K/uL (1.8-8.0); Basophils % 0.1 % (0-1.3); Hematocrit 36.2 % (36.0-45.0); Hemoglobin 11.6 g/dL (12.0-15.0); Lymphocytes % 7.4 % (15.3-44.8); MCH 25.7 pg (27.0-35.0); MCHC 32.1 g/dL (32.0-36.0); MPV 7.3 fL (7.6-11.3); Monocytes % 1.2 % (3.3-12.3); Neutrophils % 91.3 % (41.7-73.7); Platelets 386 thou/uL (152-406); RBC Red Blood Cell Count 4.52 M/uL (3.86-4.86); Red Cell Distribution Width 16.7 % (12.1-15.2)
[2024-08-22 08:00] LABS: Anion Gap 10.4 mEq/L (5.0-15.0); Potassium 4.4 mEq/L (3.5-5.1)
[2024-08-22] MEDS ORDERED: ASPIRIN EC 81 MG TAB PO ONE (08:58)
[2024-08-22] MEDS ORDERED: METHYLPREDNISOLONE 40 MG INJ ONE (08:58)
[2024-08-22] MEDS ORDERED: IPRATROPIUM BROM 0.5MG/2.5ML ONE (08:58)
[2024-08-22] MEDS ORDERED: CLOPIDOGREL 75 MG TABLET ONE (08:58)
[2024-08-22] MEDS ORDERED: ALBUTEROL 2.5 MG/3 ML NEB SOL ONE (08:58)
[2024-08-22] MEDS ORDERED: ENOXAPARIN 40 MG/0.4 ML SQ ONE (08:59)
[2024-08-22] MEDS: METOPROLOL XL 25 MG TAB PO SCH (09:00)
[2024-08-22] MEDS: METHYLPREDNISOLONE 40 MG INJ IV SCH ×2 (09:00→20:22)
[2024-08-22] MEDS: CLOPIDOGREL 75 MG TABLET PO SCH (09:00)
[2024-08-22] MEDS: ENOXAPARIN 40 MG/0.4 ML SQ SCH (09:00)
[2024-08-22] MEDS: ASPIRIN EC 81 MG TAB PO SCH (09:00)
[2024-08-22] MEDS: SERTRALINE HCL 50 MG TAB PO SCH (09:00)
[2024-08-22] MEDS: ISOSORBIDE MONO SR 30 MG TAB PO SCH (09:00)
[2024-08-22] MEDS: CEFTRIAXONE 1,000 MG in NA CHLORIDE 0.9% 50 ML IVPB SCH (09:00)
[2024-08-22] MEDS: AZITHROMYCIN IV 500 MG in NA CHLORIDE 0.9% 250 ML IVPB SCH (09:30)
[2024-08-22] MEDS: MUCINEX DM 12HR.SR TAB PO PRN (10:01)
--- NOTE | 2024-08-22 10:34 | P.PN ---
Date of Service: 08/22/24 This is 44 years old female patient with past medical history notable for morbid obesity, coronary artery disease status post stent, type 2 diabetes, current smoker who presented to emergency room for shortness of breath and productive cough for 4 weeks, failed outpatient azithromycin and Medrol pack. #1 symptomatic bronchitis rule out early stage of community-acquired pneumonia Good oxygenation on room air, CTA of the chest personally reviewed no PE but atelectasis VS consolidation in the right lower lobe, I will change antibiotics to oral levofloxacin, titrate methylprednisolone to 40 mg twice daily, scheduled DuoNeb, antitussive, supplemental oxygen #2 chronic coronary artery disease status post stent The resume aspirin, Plavix statin, metoprolol and Imdur
[2024-08-22] MEDS ORDERED: ONDANSETRON 4 MG/2 ML VIAL ONE (10:45)
[2024-08-22] MEDS ORDERED: GUAIFENESIN/CODEINE 5ML UCUP ONE (10:45)
[2024-08-22] MEDS: ONDANSETRON 4 MG/2 ML VIAL IV PRN (10:49)
[2024-08-22] MEDS: GUAIFENESIN/CODEINE 5ML UCUP PO PRN (10:50)
[2024-08-22] MEDS: BENZONATATE 100 MG CAP PO SCH (14:18)
[2024-08-22] MEDS: MORPHINE 4 MG/ML SYR IV PRN (14:19)
[2024-08-22] MEDS: TRAMADOL 37.5mg/APAP 325mg PER TAB PO PRN (19:13)
[2024-08-22] MEDS: ROSUVASTATIN 10 MG TAB PO SCH (20:21)
[2024-08-22] MEDS: LORAZEPAM 0.5 MG TABLET PO PRN (20:22)
[2024-08-22] MEDS: HOME MED 1 EA UNK (Suvorexant [Belsomra] 20 MG Tablet) PO SCH (20:26)
[2024-08-22] MEDS ORDERED: ROSUVASTATIN 10 MG PO SCH (21:00)
[2024-08-22 21:55] LABS: Arterial Blood Carboxyhemoglob 2.4 % (0-1.5); Blood Gas Oxyhemoglobin 97.3 % (94-97); Blood Gas THB 11.1 g/dl (12-18); Blood O2 Saturation 90.5 % (92-98.5)
--- NOTE | 2024-08-22 21:56 | RAD REPORT ---
EXAMINATION: ONE VIEW CHEST XR CLINICAL INDICATION: shortness of breath TECHNIQUE: Frontal chest projection is submitted. Examination is limited by patient positioning and t echnique. COMPARISON: 08/21/2024 FINDINGS: [id number] pulmonary edema suspected. The heart is moderately enlarged. No displaced fractures identified. IMPRESSION: Mild CHF is possible.
[2024-08-23] MEDS: FUROSEMIDE 40 MG/4 ML VIAL IV ONE (01:18)
[2024-08-23 04:45] LABS: Absolute Basophils 0.1 K/uL (0-0.5); Absolute Lymphocytes (CBC) 2.8 K/uL (0.7-4.9); Absolute Monocytes 0.9 K/uL (0.1-1.3); Absolute Neutrophil 18.2 K/uL (1.8-8.0); Basophils % 0.3 % (0-1.3); Hemoglobin 11.9 g/dL (12.0-15.0); Lymphocytes % 12.9 % (15.3-44.8); MCH 25.6 pg (27.0-35.0); MPV 7.5 fL (7.6-11.3); Monocytes % 4.3 % (3.3-12.3); Neutrophils % 82.5 % (41.7-73.7); Nucleated Red Blood Cells % 0.1 % (0-0); Platelets 400 thou/uL (152-406); RBC Red Blood Cell Count 4.63 M/uL (3.86-4.86); Red Cell Distribution Width 17.1 % (12.1-15.2)
[2024-08-23 05:36] LABS: Band Neutrophils 6 % (0-1); Blood Morphology Comment NOT SEEN (NOT SEEN); Differential Total Cells Count 100; Lymphocytes 6 % (15-42); Monocytes 3 % (0-10); Platelet Estimate ADEQ; Reactive Lymphocytes 2 %; Segmented Neutrophils 81 % (40-80)
[2024-08-23] MEDS: LIDOCAINE 4% PATCH TOP SCH (09:05)
[2024-08-23] MEDS: FUROSEMIDE 40 MG/4 ML VIAL IV SCH (09:06)
[2024-08-23] MEDS: levoFLOXacin 750 MG TAB PO SCH (09:07)
[2024-08-23] MEDS: METHYLPREDNISOLONE 40 MG INJ IV SCH (09:17)
--- NOTE | 2024-08-23 10:08 | P.PN ---
Subjective Date of Service: 08/23/24 Chief Complaint: Shortness of breath cough fever Subjective: No new changes She is complaining of continuous shortness of breath on minimal exertion, intractable nonproductive cough, ABG was done last night, pH normal, pCO2 38 mmHg pCO2 53 mmHg on 2 L nasal cannula, N-terminal proBNP mildly elevated at 468, chest x-ray suggestive of mild pulmonary edema, IV furosemide was given x 1. Review of Systems Other: Consitutional; fever(-), chills (-), rigor(-), night sweat(-), unintentional weight loss(-), malaise (-) HEENT; diplopia (-), rhinorrhea (-), epistaxis (-), otorrhea (-), otalgia (-) Respiratory; shortness of breath (+), wheezing (-), cough (+), sputum (+), pleuritic chest pain (-) Cardiovascular; chest pain (-+), peripheral edema (-), paroxysmal nocturnal dyspnea (-), orthopnea (-) Gastrointestinal; nausea (-), vomiting (-), abdominal pain (-), diarrhea (-), constipation (-), melena (-), hematochezia (-) Genitourinary; urinary frequency (-), dysuria (-), urgency (-), flank pain (-), gross hematuria (-), incontinence (-) Skin; rash (-), pruritus (-) 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 General: Morbidly obese, not acutely ill looking, in no apparent distress,. HEENT: Normocephalic, atraumatic, nonicteric sclera, nonanemic conjunctive. Neck: Supple, unable to assess JVD D due to her body habit. Respiratory: Normal breathing effort, clear to auscultation bilaterally, no crackles no wheezing or rhonchi. Cardiovascular: Regular rate and rhythm, S1, S2 normal, no murmur no gallop. Gastrointestinal: Normal bowel sounds, nondistended, nontender, No ascites, , No masses, no hepatosplenomegaly. Extremities : No clubbing, No peripheral edema,. Integumentary: No rashes, petechia, suspected lesions. Lymphatics: No axilla or cervical lymphadenopathy. Neurology; alert awake oriented x3, no focal neurologic deficit, normal affection . mood and behavior. - Studies Laboratory Data (last 24 hrs) 08/23/24 08/23/24 04:04 04:04 WBC 22.00 H Hgb 11.9 L Hct 37.0 Plt Count 400 Sodium 137 Potassium 4.0 BUN 11 Creatinine 0.65 Glucose 128 H Triglycerides 130 Cholesterol 177 HDL Cholesterol 48 Cholesterol/HDL Ratio 3.69 Assessment And Plan - Plan This is 44 years old female patient with past medical history notable for morbid obesity, coronary artery disease status post stent, type 2 diabetes, current smoker who presented to emergency room for shortness of breath and productive cough for 4 weeks, failed outpatient azithromycin and Medrol pack. #1 acute hypoxic respiratory failure of unclear etiology ABG, pH normal, pCO2 38 mmHg, pO2 53 mmHg on nasal cannula 2 L, CTA of the chest on admission no PE but atelectasis VS consolidation in the right lower lobe, tested negative for influenza A and B, COVID-19, RSV by rapid antigen test, oral levofloxacin for possible early stage of community-acquired pneumonia, methylprednisolone 40 mg daily, scheduled DuoNeb, antitussive, supplemental oxygen, will continue furosemide IV, I will request pulmonary consult #2 chronic coronary artery disease status post stent aspirin, Plavix statin, metoprolol and Imdur DVT prophylaxis; enoxaparin subcu Disposition; I will change patient's status from observation to inpatient today
[2024-08-23] MEDS: NICOTINE 21 MG/PAT TD SCH (16:40)
[2024-08-23] MEDS: ALBUTEROL 2.5 MG/3 ML NEB SOL ONE (20:36)
[2024-08-23] MEDS: IPRATROPIUM BROM 0.5MG/2.5ML ONE (20:36)
[2024-08-24] MEDS: ALBUTEROL 2.5 MG/3 ML NEB SOL ONE ×2 (01:30→20:28)
[2024-08-24] MEDS: IPRATROPIUM BROM 0.5MG/2.5ML ONE ×2 (01:30→20:28)
--- NOTE | 2024-08-24 13:00 | RAD REPORT ---
Procedure: Chest Single View HISTORY: Cough COMPARISON: August 22, 2024 FINDINGS: The lungs appear clear of acute infiltrate. No significant pleural effusion noted. The heart is normal size. IMPRESSION: No acute abnormality is displayed.
[2024-08-24] MEDS: clonazePAM 1 MG TAB PO ONE (14:09)
[2024-08-24] MEDS ORDERED: GUAIFENESIN/CODEINE 5ML UCUP PO PRN (15:41)
[2024-08-24] MEDS: NA CHLORIDE 0.9% 1,000 ML IV SCH (16:53)
[2024-08-25 05:33] LABS: Absolute Basophils 0.2 K/uL (0-0.5); Absolute Eosinophils 0.1 K/uL (0-0.5); Absolute Lymphocytes (CBC) 5.8 K/uL (0.7-4.9); Absolute Monocytes 1.4 K/uL (0.1-1.3); Absolute Neutrophil 12.6 K/uL (1.8-8.0); Basophils % 0.9 % (0-1.3); Eosinophils % 0.5 % (0-4.4); Hematocrit 39.2 % (36.0-45.0); Hemoglobin 12.7 g/dL (12.0-15.0); MCH 25.7 pg (27.0-35.0); MCHC 32.5 g/dL (32.0-36.0); MCV 79.3 fL (80-100); MPV 7.5 fL (7.6-11.3); Monocytes % 6.9 % (3.3-12.3); Neutrophils % 62.7 % (41.7-73.7); Nucleated Red Blood Cells % 0.1 % (0-0); Platelets 402 thou/uL (152-406); RBC Red Blood Cell Count 4.95 M/uL (3.86-4.86); Red Cell Distribution Width 16.6 % (12.1-15.2)
[2024-08-25 05:46] LABS: Anion Gap 5.1 mEq/L (5.0-15.0); BUN Blood Urea Nitrogen 15 mg/dL (7-18); Bicarbonate 28 mEq/L (21-32); Glomerular Filtration Rate 109 ml/min (=/>90); Glucose Level 97 mg/dL (74-106); Magnesium 2.3 mg/dL (1.6-2.4); NT PRO-BNP 34 pg/mL (<125); Potassium 4.1 mEq/L (3.5-5.1); Sodium Level 134 mEq/L (136-145)
[2024-08-25 05:49] LABS: C-Reactive Protein < 2.90 mg/L (<3.00)
[2024-08-25 08:52] VITALS: BP 137/69; TEMP 97.1
[2024-08-25] MEDS: ROFLUMILAST 500 MCG TABLET PO SCH (09:00)
[2024-08-25] MEDS: AMOX/K CLAV 875 MG TAB PO SCH (09:00)
[2024-08-25] MEDS: predniSONE 20 MG TAB PO SCH (09:00)
[2024-08-25] MEDS: DULERA 200/5 (MOMETASONE/FORMOTEROL) INHALER IH SCH (09:02)
[2024-08-25] MEDS: AZITHROMYCIN 250 MG TAB PO SCH (09:02)
[2024-08-25 09:20] VITALS: O2SAT 97
[2024-08-25] MEDS: predniSONE 20 MG TAB PO ONE (11:28)
[2024-08-25] MEDS: AMOX/K CLAV 875 MG TAB PO ONE (11:44)
[2024-08-25] MEDS: ROFLUMILAST 500 MCG TABLET PO ONE (11:44)
--- NOTE | 2024-08-25 12:07 | P.PN ---
Subjective Date of Service: 08/25/24 Chief Complaint: Shortness of breath cough fever Change in patient's condition since admission still complaining of cough congestion shortness of breath is actively smoking Review of Systems General: Weakness Respiratory: Cough, Shortness of Breath Physical Examination - Vital Signs Temperature: 97.1 F Blood Pressure: 137/69 Pulse: 57 Respirations: 16 Pulse Ox (%): 97 - Physical Exam General: Alert, Oriented x3, Mild distress Respiratory: Clear to auscultation bilaterally Gastrointestinal: Normal bowel sounds, Soft and benign, Non-distended Other Physical/Emotional Findings: - Physical Exam. General: Morbidly obese, not acutely ill looking, in no apparent distress,. HEENT: Normocephalic, atraumatic, nonicteric sclera, nonanemic conjunctive. Neck: Supple, unable to assess JVD D due to her body habit. Respiratory: Normal breathing effort, clear to auscultation bilaterally, no crackles no wheezing or rhonchi. Cardiovascular : Regular rate and rhythm, S1, S2 normal, no murmur no gallop. Gastrointestinal: Normal bowel sounds, nondistended, nontender, No ascites, , No masses, no hepatosplenomegaly. Extremities : No clubbing, No peripheral edema,. Integumentary: No rashes, petechia, suspected lesions. Lymphatics: No axilla or cervical lymphadenopathy. Neurology; alert awake oriented x3, no focal neurologic deficit, normal affection . mood and behavior. Assessment And Plan - Current Problems (Diagnosis) (1) Respiratory distress Current Visit: Yes Status: Acute Plan: Patient is 44 years of age admitted with respiratory distress pain since admission to Augmentin and Zithromax meter changes records clerk to p.o. prednisone Dulera inhaler x-ray is clear count continues to remain elevated at 20,000 may be due to steroid
== END 2024-08-25 16:01 | disposition home or self-care (01) | DRG 871 ==
LOC: ER 20:45 → ERHOLD 08-22 02:15 → 2ND 08-22 11:57 → OBSVTOIN 08-23 07:10
PROVIDERS: ADMIT Internal Medicine Sleep Medicine; ATTEND Hospitalist
PROC: 4A033R1 Measurement of Arterial Saturation, Peripheral, Percutaneous Approach (ICD-10-PCS; principal; 2024-08-23)
DX: A41.9 Sepsis, unspecified organism (principal); J18.9 Pneumonia, unspecified organism; J96.01 Acute respiratory failure with hypoxia; Z68.41 Body mass index [BMI] 40.0-44.9, adult; R65.20 Severe sepsis without septic shock; F17.200 Nicotine dependence, unspecified, uncomplicated; F41.8 Other specified anxiety disorders; I25.2 Old myocardial infarction; F43.10 Post-traumatic stress disorder, unspecified; F31.9 Bipolar disorder, unspecified; E66.01 Morbid (severe) obesity due to excess calories; E11.9 Type 2 diabetes mellitus without complications; Z79.4 Long term (current) use of insulin
CPT/HCPCS: 36415; 36600; 71045; 71275; 80048; 80053; 80061; 81001; 82805; 82947; 83036; 83605; 83735; 83880; 84484; 85025; 85610; 85730; 86140; 87040; 87804; 87807; 87811; 93005; 94640; 96361; 96365; 96367; 96375; 99285; G0378; J0696; J1650; J1940; J2003; J2405; J2919; J3010; J3535; J7030; J7050; J7512; J7613; J7644; Q9967

== ENCOUNTER 2024-09-06 00:40 | Emergency (ER) | payer OTHER ==
--- OUTSIDE RECORDS SUMMARY | 2024-09-06 01:02 | XMS REPORT | Continuity of Care Document ---
Author Name Unknown Address [address] [facility] [address] [place] [address] [facility] thconnect Address [address] [facility] [place] [address] Support Name Relationship Address Phone RACHEL CASH Father Unknown Unavailable PHYSICIAN, NO Primary Care Physician Unknown Unav ailable MD MORA POLLOCK Emergency Provider [address] [place] [address] JAN COX natural parent [address] [address] MD SHERIDAN MCMANUS Emergency Provider [facility], [place] [address] CHARITY ROCA Guarantor [address] [place] [address] MD RIDDHI [place] [address] MD AN IRIZARRY Emergency Provider [facility], [place] [address] MD CARLOS SOLANO A Primary Care Physician [address] [facility] 3 [place] [address] OTHER, ENTER NAME IN NOTES Primary Care Physician Unknown Unavailable MD Arelis Kern Emergency Provider [address] [place] [address] MD SHAN BUSCH Attending Provider [address] [place] [address] PIYUSH JUAREZ parent [address] [place] [address] MD TAVARES MG JR, JR. Emergency Provider [address] [place] [address] Leyda Petty Mother Unknown Unavailable Rachel Cox Father [address] [place] [address] one else per patient, No Emergency Contact Unknown Unavailable Rachel Cox Father [address] [place] [address] 1 Personal Relationship Unknown Unavai lable Unavailable Personal Relationship Unknown Unavai lable Rachel Cox [address] [place] [address] PATIENT, NO ONE ELSE PER Personal Relationship Unknown Unavailable Care Team Providers Care News Videographer Name Role Phone OTHER, ENTER NAME IN NOTES Primary Care Physicia n Unavailable JOANNE MONTES Attending Clinician Unavailable CONRADO SMITH Attending Clinician Unavailable JÚNIOR FARRELL Attending Clinician Unavailable Saleem EDWARD Attending Clinician Unavailable Saleem EDWARD Attending Clinician Unavailable Saleem Perez Attending Clinician [phone] RADIOLOGY, DEPT Attending Clinician Unavailable MD BEHZAD Attending Clinician Unavailab GISELLE Brink Attending Clinician Unavailable SANDY GARCIA Attending Clinician Unavailable SANDY GARCIA Attending Clinician Unavailable Sandy Walker Attending Clinician [phone] OLIVIA GARCIA Attending Clinician Unavailable OLIVIA GARCIA Attending Clinician Unavailable Olivia Garcia MD Attending Clinician [phone] ANNALISE WRIGHT Attending Clinician Unavailable Annalise Wright PA-C Attending Clinician [phone] Attending Clinician Unavailable Alesha Roy MD [...] Clinician + FELTON Attending Clinician Unavailable MELIDA OLNGORIA Attending Clinician Unavailable Melida Longoria MD Attending Clinician + WIL MCQUEEN Attending Clinician Unavailable Wil Joseph Attending Clinician + IBDEE MAURER F Attending Clinician Unavaila ble Ibikunbailee PELLETIZER, Folusho F Attending Clinician +1- Doctor Unassigned, Veyo Attending Clinician U CEM Lance Attending Clinician Unavailable Cem Choi MD Attending Clinician [phone] Shelley Rosas RN Attending Clinician [phone] Bal Cuevas Attending Clinician + BAL HASSAN [...] Clinician Unavailab SANIA Glover Attending Clinician Unavailable GIAN MARTIN Attending Clinician Unavailable YIN RIOS Attending [...] Clinician Unavailable Jesús Montero MD Admitting Clinician [phone] FELTON Admitting Clinician Unavailable MELIDA LONGORIA Admitting [...] Date Source AEADAMA TAYLOR 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 [id number] 2020 00:00:00 Problems Condition Name Condition Details Condition Category Status Onset Date Resolution Date Last Treatment Date Treating Clinician Comments Source Generalize d abdominal pain Generalize d abdominal pain Disease Active 2023-07 0 00:00: 00 [facility] Coronary artery disease Coronary artery [...] smoker Disease Active 2020-07 0- 00:00: 00 [facility] Family history of early CAD Family history of early CAD Disease Active 2020-07 0- 00:00: 00 [facility] Primary hypertensi on Primary hypertensi on Disease Active 2020-07 0- 00:00: 00 [facility] [...] 40.0-49.9 Disease Active 2020-07 0- 00:00: 00 [facility] Abdominal pain Problem [facility] Acute coronary syndrome without high troponin Problem [facility] Adrenal mass Problem [facility] Adrenal nodule Problem [facility] Encounter for counseling regarding advance directives Problem [facility] Allergic rhinitis Problem [facility] Angina pectoris Problem [facility] Anxiety and depression Problem [facility] Chest pain Problem [facility] Gastroente ritis Problem [facility] Malaise Problem [facility] Otitis externa of left ear Problem [facility] Cyst of ovary Problem [facility] Post traumatic stress disorder (PTSD) Problem [facility] Tobacco abuse Problem [facility] Urinary tract infection [facility] No known active problems No known active problems Disease [facility] Allergies, Adverse Reactions, Alerts Allergy Name Allergy Type Status Severity Reaction(s) Onset Date Inactive Date Treating Clinician Comments Source NO KNOWN ALLERGIE S Drug Class Active [facility] Social History Social Habit Start Date Stop Date Quantity Comments Source History of tobacco use [facility] Gender identity [facility] Sexual orientation Saleem Buckley - External [...] cigarettes/ day from 2 packs per day [facility] Exposure to SARS-CoV-2 (event) 2021-12-30 00:00:00 2022-01-09 16:34:00 Unable to assess [facility] Education 2021-04-07 00:00:00 2021-04-07 00:00:00 13 [facility] Sex assigned at 1980 00:00:00 1980 00:00:00 Kellee Davies Smoking Status Start Date Stop Date Source Smokes tobacco daily 2023-10-28 00:00:00 Kellee Davies Unknown if ever smoked [facility] Medications Ordered Medication Name Filled Medication Name Start Date Stop Date Current Medication? Ordering Clinician Indication Dosage Frequency Signature (SIG) Comments Components Source methylPREDN ISolone 4 MG oral Tablet Therapy Pack 08-05 00:00: 00 Yes [id number] 1{bebeto} Take 1 ebbeto by mouth See Admin Instructio ns Use as directed. Kellee pinedo Albuterol HFA 108 (90 Base) MCG/ACT IN AERS 08-05 00:00: 00 Yes [id number] 2{puff} Q.25D Inhale 2 puffs into the lungs every 6 hours as needed for wheezing or shortness of breath. Kellee pinedo Guaifenesin (Mucinex) 600 MG oral Tablet 12 Hour Sustained Release 08-05 00:00: 00 Yes [id number] 1200mg Q.5D Take 2 tablets (1,200 mg total) by mouth 2 times daily. Kellee pinedo Belsomra 20 MG oral Tablet 08-04 00:00: 00 Yes [id number] 1{tbl} QD TAKE 1 TABLET BY MOUTH EVERY DAY AT NIGHT Kellee pinedo Aspirin Low Dose 81 MG oral Tablet Delayed Response 08-04 00:00: 00 Yes [id number] 81mg QD TAKE 1 TABLET BY MOUTH [...] dose, On 07/19/24 at 0200, Routine [facility] ipratropium -albuteroL (DUONEB) 0.5 mg-3 mg(2.5 mg base)/3 mL nebulizer solution 3 mL 07-19 08:00: 00 07-19 07:04 :00 No 3mL 3 mL, Inhalation , ONCE, 1 dose, On 07/19/24 at 0200, Routine [facility] azithromyci n (ZITHROMAX) tablet 500 mg 07-19 07:00: 00 07-19 07:05 :00 No 500mg 500 mg, Oral, ONCE, 1 dose, On 07/19/24 at 0100, [place], Reason for Anti-Infec tive: Documented Infection, Documented Infection Site: Respirator y, Duration of Therapy: Once (ED) [facility] iopamidol (ISOVUE 370-500 mL) injection 75 mL 07-19 06:45: 00 07-19 06:45 :00 No [id number] 75mL 75 mL, Intravenou s, ONCE, 1 dose, On 07/19/24 at 0045, Routine [facility] nitroglycer in (NITROL) 2 % ointment 0.5 Inch 07-19 06:00: 00 07-19 05:11 :00 No .5[in_u s] 0.5 Inch, Transderma l (Apply To Skin), ONCE, 1 dose, On 07/19/24 at 0000, [facility] ketorolac (TORADOL) injection 15 mg 07-19 06:00: 00 07-19 05:09 :00 No 15mg 15 mg, Slow IV Push, ONCE, 1 dose, On 07/19/24 at 0000, [facility] predniSONE 20 mg tablet 07-19 00:00: 00 Yes [id number] 1 PO BID x 4 days [facility] Azithromyci n 250 MG oral Tablet 07-19 00:00: 00 Yes 250mg Take 1 tablet (250 mg total) by mouth See Admin Instructio ns. Kellee pinedo Sertraline HCl 50 MG oral Tablet 07-10 00:00: 00 Yes [id number] TAKE 1 TABLET BY MOUTH DAILY TAKE IN ADDITION TO 100 MG TABLET FOR A TOTAL DOSE OF 150 MG DAILY. Kellee pinedo Sertraline HCl 100 MG oral Tablet 07-10 00:00: 00 Yes [id number] TAKE 1 TABLET BY MOUTH EVERY MORNING TAKE IN ADDITION TO 50 MG TABLET FOR A TOTAL DOSE OF 150 MG DAILY. Kellee pinedo iopamidol (ISOVUE 370-500 mL) injection 100 mL 2023-07 06:45: 00 07-04 06:45 :00 No [id number] 100mL 100 mL, Intravenou s, ONCE, 1 dose, On 07/04/24 at 0045, Routine [facility] morpHINE (4 mg/mL) injection 4 mg 2023-07 06:30: 00 07-04 06:29 :00 No 4mg 4 mg, Slow IV Push, ONCE, 1 dose, On 07/04/24 at 0030, [facility] proMETHazin e (PHENERGAN) 12.5 mg in NS 50 mL IV piggyback (CNR) 2023-07 05:15: 00 07-04 05:30 :00 No 12.5mg 12.5 mg, IV Piggyback, at 200 mL/hr Administer over 15 Minutes, ONCE, 1 dose, On Sat07/03/24 at 2315, RO[facility] morpHINE (4 mg/mL) injection 4 mg 2023-07 03:30: 00 07-04 03:49 :00 No 4mg 4 mg, Slow IV Push, ONCE, 1 dose, On Sat07/03/24 at 2130, STAT [facility] ondansetron (ZOFRAN (PF)) injection 4 mg 2023-07 03:30: 00 07-04 03:50 :00 No 4mg 4 mg, Slow IV Push, ONCE, 1 dose, On Sat07/03/24 at 2130, Administer over 2-5 Minutes, 2 mL [facility] NaCl 0.9% (NS) IV infusion 1,000 mL 2023-07 03:18: 00 07-04 04:56 :00 No 1000mL at 999 mL/hr, Intravenou s, ONCE, 1 dose, On Sat07/03/24 at 2130, [facility] sodium chloride (NS) injection 5 mL 2023-07 02:16: 03 Yes 5mL 5 mL, Intravenou s, PRN, Starting on Sat07/03/24 at 2016, Until Discontinu ed, Routine, IV line flushing [facility] benzonatate 100 mg capsule 2023-07 00:00: 00 Yes [id number] 100mg Take 1 capsule by mouth 3 (three) times daily as needed for Cough. [facility] proMETHazin e 25 mg tablet 2023-07 00:00: 00 Yes [id number] 25mg Take 1 tablet by mouth every 6 (six) hours as needed for Nausea and Vomiting (N/V). [facility] dicyclomine 10 mg capsule 2023-07 00:00: 00 Yes [id number] 10mg Take 1 capsule by mouth 3 (three) times daily as needed for Abdominal pain. [facility] Gabapentin 300 MG oral Capsule 2023-07 00:00: [...] Soft Tissue, Duration of Therapy: Once (ED) [facility] doxycycline hyclate (Vibramycin ) capsule 100 mg 2023-07 08:45: 00 06-21 08:53 :00 No 100mg 100 mg, Oral, ONCE, 1 dose, On 06/21/24 at 0245, [place], Reason for Anti-Infec tive: Documented Infection, Documented Infection Site: Skin / Soft Tissue, Duration of Therapy: Once (ED) [facility] doxycycline hyclate 100 mg capsule 2023-07 00:00: 00 06-29 05:59 :00 Yes [id number] 100mg Take 1 capsule by mouth in the morning and 1 capsule in the evening. Do all this for 7 days. [facility] cephALEXin 500 mg capsule 2023-07 00:00: 00 06-29 05:59 :00 Yes [id number] 500mg Take 1 capsule by mouth 4 (four) times daily for 7 days. [facility] iopamidol (ISOVUE 370-500 mL) injection 100 mL 2023-07 06:30: 00 06-15 06:30 :00 Yes [id number] 100mL 100 mL, Intravenou s, ONCE, 1 dose, On Sat06/15/24 at 0030, Routine [facility] morpHINE (4 mg/mL) injection 4 mg 2023-07 06:00: 00 06-15 05:57 :00 No 4mg 4 mg, Slow IV Push, ONCE, 1 dose, On Sat06/15/24 at 0000, STAT [facility] proMETHazin e (PHENERGAN) 12.5 mg in NS 50 mL IV piggyback (CNR) 2023-07 05:15: 00 06-15 05:56 :00 No 12.5mg 12.5 mg, IV Piggyback, at 200 mL/hr Administer over 15 Minutes, ONCE, 1 dose, On 06/14/24 at 2315, [facility] NaCl 0.9% (NS) IV infusion 1,000 mL 2023-07 04:30: 00 06-15 05:28 :00 No 1000mL at 999 mL/hr, Intravenou s, ONCE, 1 dose, On 06/14/24 at 2230, Routine [facility] fentanyl PF (SUBLIMAZE (PF)) injection 50 mcg 2023-07 04:00: 00 06-15 04:23 :00 No 50ug 50 mcg, Slow IV Push, ONCE, 1 dose, On Sat06/14/24 at 2200, Routine [facility] famotidine (PEPCID (PF)) injection 20 mg 2023-07 03:30: 00 06-15 04:18 :00 No 20mg 20 mg, Slow IV Push, ONCE, 1 dose, On Sat06/14/24 at 2130[facility] ([facility] (PF)) [facility] 4 mg 2023-07 03:30: 00 06-15 04:20 :00 No 4mg 4 mg, Slow IV Push, ONCE, 1 dose, On Sat06/14/24 at 2130, Administer over 2-5 Minutes, 2 mL [facility] proMETHazin e 25 mg tablet 2023-07 00:00: 00 Yes [id number] 25mg Take 1 tablet by mouth every 6 (six) hours as needed for Nausea and Vomiting (N/V). [facility] morpHINE (4 mg/mL) injection 4 mg 2023-07 08:15: 00 06-07 08:11 :00 No 4mg 4 mg, Slow IV Push, ONCE, 1 dose, On Sat06/07/24 at 0215, STAT [facility] ondansetron (ZOFRAN (PF)) injection 4 mg 2023-07 05:15: 00 06-07 05:23 :00 No 4mg 4 mg, Slow IV Push, ONCE, 1 dose, On 06/06/24 at 2315, Administer over 2-5 Minutes, 2 mL [facility] morpHINE (4 mg/mL) injection 4 mg 2023-07 05:15: 00 06-07 05:21 :00 No 4mg 4 mg, Slow IV Push, ONCE, 1 dose, On 06/06/24 at 2315, STAT [facility] nitroglycer in (NITROSTAT) sublingual tablet 0.4 mg 2023-07 05:08: 35 Yes .4mg 0.4 mg, Sublingual , Q5MIN PRN, 3 doses, Starting on 06/06/24 at 2308, Until Discontinu ed, ROSELYN, Chest pain [facility] hydrOXYzine Pamoate 50 MG oral Capsule 2023-07 13:02: 35 Yes [id number] 50mg Q.5D Take 1 capsule (50 mg total) by mouth 2 times daily as needed for anxiety. Kellee pinedo Vitamin D, Ergocalcife rol, 1.25 MG (74060 UT) oral Capsule 2023-07 00:00: 00 Yes [id number] 07285Z Q1W Take 1 capsule (50,000 units total) by mouth once a week. Kellee pinedo ondansetron (ZOFRAN-ODT ) disintegrat ing tablet 4 mg 2023-07 20:15: 00 05-19 19:27 :00 No 4mg 4 mg, Oral, ONCE, 1 dose, On Sat05/19/24 at 1415, Routine [facility] HYDROcodone -acetaminop hen (NORCO 5) tablet 1 tablet 2023-07 18:00: 00 05-19 19:27 :00 No 1{tbl} 1 tablet, Oral, ONCE, 1 dose, On Sat05/19/24 at 1200, [facility] ondansetron 4 mg disintegrat ing tablet 2023-07 00:00: 00 Yes [id number] 4mg Take 1 tablet by mouth every 8 (eight) hours as needed for Nausea and Vomiting (N/V). [facility] hydrOXYzine Pamoate 50 MG oral Capsule 2023-07 10:26: 29 Yes [id number] 50mg Q.5D Take 1 capsule (50 mg total) by mouth 2 times daily as needed for anxiety. Kellee pinedo ondansetron (ZOFRAN (PF)) injection 4 mg 2023-07 03:45: 00 05-18 03:42 :00 No 4mg 4 mg, Slow IV Push, ONCE, 1 dose, On 05/17/24 at 2145, [facility] morpHINE (4 mg/mL) injection 4 mg 2023-07 03:45: 00 05-18 03:42 :00 No 4mg 4 mg, Slow IV Push, ONCE, 1 dose, On 05/17/24 at 2145, STAT [facility] ondansetron (ZOFRAN (PF)) injection 4 mg 2023-07 01:00: 00 05-18 01:21 :00 No 4mg 4 mg, Slow IV Push, ONCE, 1 dose, On 05/17/24 at 1900, [facility] fentanyl PF (SUBLIMAZE (PF)) injection 50 mcg 2023-07 01:00: 00 05-18 01:21 :00 No 50ug 50 mcg, Slow IV Push, ONCE, 1 dose, On 05/17/24 at 1900, STAT [facility] Suvorexant (Belsomra) 20 MG oral Tablet 2023-07 00:00: 00 Yes [id number] 1{tbl} QD Take 1 tablet by mouth nightly. Kellee pinedo Methocarbam ol 750 MG oral Tablet 2023-07 00:00: 00 Yes [id number] 750mg Q.25D Take 1 tablet (750 mg total) by mouth 4 times daily. Kellee pinedo Acetaminoph en-Codeine 300-30 MG oral Tablet 2023-07 00:00: 00 Yes [id number] Kellee pinedo Lorazepam (ATIVAN) 0.5 MG oral Tablet tablet 2023-07 00:00: 00 Yes [id number] .5mg Q.5D Take 1 tablet (0.5 mg total) by mouth 2 times daily as needed for anxiety. Kellee pinedo Sertraline HCl 50 MG oral Tablet 2023-07 00:00: 00 Yes [id number] 50mg QD Take 1 tablet (50 mg total) by mouth daily Take in addition to 100 mg tablet for a total dose of 150 mg daily. Kellee pinedo Sertraline HCl 100 MG oral Tablet 2023-07 00:00: 00 Yes [id number] 100mg Take 1 tablet (100 mg total) by mouth every morning Take in addition to 50 mg tablet for a total dose of 150 mg daily. Kellee pinedo Isosorbide Mononitrate CR 30 MG oral TABLET SR 24 HR 2023-07 00:00: 00 Yes [id number] TAKE THREE TABLETS BY MOUTH ONCE DAILY (90MG DAILY) Kellee pinedo ondansetron (ZOFRAN (PF)) injection 4 mg 2023-07 01:30: 00 05-08 00:31 :00 No 4mg 4 mg, Slow IV Push, ONCE, 1 dose, On [place] 05/07/24 at 2030, [place] [facility] morpHINE (4 mg/mL) injection 4 mg 2023-07 01:30: 00 05-08 01:20 :00 No 4mg 4 mg, Slow IV Push, ONCE, 1 dose, On [place] 05/07/24 at 2030, STAT [facility] ketorolac (TORADOL) injection 15 mg 2023-07 01:30: 00 05-08 00:30 :00 No 15mg 15 mg, Slow IV Push, ONCE, 1 dose, On [place] 05/07/24 at 2030, [facility] phenazopyri dine 200 mg tablet 2023-07 00:00: 00 Yes [id number] 200mg Take 1 tablet by mouth in the morning and 1 tablet at noon and 1 tablet in the evening. [facility] Rosuvastati n Calcium 20 MG oral Tablet 2023-07 0 00:00: 00 Yes 20mg QD Take 1 tablet (20 mg total) by mouth daily. Kellee pinedo Metoprolol Succinate 25 MG oral TABLET SR 24 HR 2023-07 0 00:00: 00 Yes [id number] 25mg QD Take 1 tablet (25 mg total) by mouth daily. Kellee pinedo Dicyclomine HCl 20 MG oral Tablet 2023-07 0 00:00: 00 Yes TAKE 1 TABLET BY MOUTH FOUR TIMES A DAY NEEDED FOR PAIN Kellee pinedo Ondansetron (ZOFRAN) 4 MG oral TABLET DISPERSIBLE 2023-07 00:00: 00 Yes 4mg Q.[id number] 3D Take 1 tablet (4 mg total) by mouth 3 times daily. Kellee pinedo Belsomra 20 MG oral Tablet 2023-07 00:00: 00 05-18 00:00 :00 No [id number] 1{tbl} QD take 1 tablet by mouth every day at night Kellee pinedo Nitrofurant oin (Macrobid *) 100 Mg CAP Nitrofurant oin (Macrobid *) 100 Mg CAP 2023-07 18:32: 00 Yes 100 [facility] Ondansetron Hcl (Zofran *) 4 Mg Tablet Disint Ondansetron Hcl (Zofran *) 4 Mg Tablet Disint 2023-07 0 18:32: 00 Yes 1 [facility] cefTRIAXone (ROCEPHIN) 1,000 mg in NaCl 0.9% (NS) 100 mL MINI-BAG 2023-07 0 01:15: 00 04-09 01:24 :00 No 1000mg 1,000 mg, IV Piggyback, ONCE, 1 dose, On Sat04/08/24 at 2014, Administer over 30 Minutes, 100 mL, Reason for Anti-Infec tive: Documented Infection, Documented Infection Site: Urine, Duration of Therapy: Once (ED) [facility] fentanyl PF (SUBLIMAZE (PF)) injection 25 mcg 2023-07 00:15: 00 04-09 00:18 :00 No 25ug 25 mcg, Slow IV Push, ONCE, 1 dose, On Sat04/08/24 at 1915, STAT [facility] NaCl 0.9% (NS) bolus infusion 1,000 mL 2023-07 23:45: 00 04-09 01:24 :00 No 1000mL at 999 mL/hr, 1,000 mL, IV Infusion, ONCE, 1 dose, On Sat04/08/24 at 1845, [facility] ondansetron (ZOFRAN (PF)) injection 4 mg 2023-07 23:00: 00 04-08 22:57 :00 No 4mg 4 mg, Slow IV Push, ONCE, 1 dose, On Sat04/08/24 at 1800, [facility] ketorolac (TORADOL) injection 30 mg 2023-07 23:00: 00 04-08 22:57 :00 No 30mg 30 mg, Slow IV Push, ONCE, 1 dose, On Sat04/08/24 at 1800, [facility] sodium chloride (NS) injection 5 mL 2023-07 22:33: 00 Yes 5mL 5 mL, Intravenou s, PRN, Starting on Sat04/08/24 at 1733, Until Discontinu ed, Routine, IV line flushing [facility] ciprofloxac in HCl 500 mg tablet 2023-07 00:00: 00 Yes [id number] 500mg Take 1 tablet by mouth in the morning and 1 tablet in the evening. [facility] Promethazin e HCl (PHENERGAN) 25 MG oral Tablet 07 00:00: 00 Yes 25mg Q.[id number] 3D Take 1 tablet (25 mg total) by mouth every 8 hours as needed for nausea. Kellee pinedo Clopidogrel Bisulfate (PLAVIX) 75 MG oral Tablet 02-09 00:00: 00 Yes [id number] 75mg QD take 1 tablet by mouth every day Kellee pinedo Aspirin Low Dose 81 MG oral Tablet Delayed Response 02-09 00:00: 00 Yes [id number] 81mg QD take 1 tablet by mouth every day Kellee pinedo Methylpredn isolone Acetate (Depo-Medro l) 40 mg/ml - Physician Administere d ([id number]) 02-05 13:21: 25 No [id number] 9104 40mg 40 mg, Physician Administer ed, ONCE, 1 dose, On [place] 02/06/24 at 1145 Kellee pinedo hydrOXYzine Pamoate 50 MG oral Capsule 02-05 11:06: 49 Yes [id number] 50mg Q.5D Take 1 capsule (50 mg total) by mouth 2 times daily as needed for anxiety. Kellee pinedo Isosorbide Mononitrate CR 60 MG oral TABLET SR 24 HR 02-04 00:00: 00 Yes Kellee pinedo Lorazepam (ATIVAN) 0.5 MG oral Tablet tablet 01-09 00:00: 00 Yes [id number] .5mg Q.5D take 1 tablet by mouth 2 times daily as needed for anxiety Kellee pinedo Aspirin (Aspirin Low Dose) 81 MG oral Tablet Delayed Response 01-05 00:00: 00 Yes [id number] 81mg QD Take 1 tablet (81 mg total) by mouth daily. Kellee pinedo Atorvastati n Calcium 40 MG oral Tablet 01-05 00:00: 00 Yes [id number] 40mg QD Take 1 tablet (40 mg total) by mouth daily. Kellee pinedo Suvorexant (Belsomra) 20 MG oral Tablet 01-05 00:00: 00 Yes [id number] 1{tbl} QD Take 1 tablet by mouth nightly. Kellee pinedo Clopidogrel Bisulfate (PLAVIX) 75 MG oral Tablet 01-05 00:00: 00 Yes [id number] 75mg QD Take 1 tablet (75 mg [...] MG oral Capsule 12-12 09:19: 23 Yes [id number] 50mg Q.5D Take 1 capsule (50 mg total) by mouth 2 times daily as needed for anxiety. Kellee pinedo Lorazepam (ATIVAN) 0.5 MG oral Tablet tablet 12-12 00:00: 00 Yes [id number] .5mg Q.5D Take 1 tablet (0.5 mg total) by mouth 2 times daily as needed for anxiety. Kellee pinedo Aspirin Low Dose 81 MG oral Tablet Delayed Response 12-05 00:00: 00 Yes [id number] 81mg Take 1 tablet (81 mg total) by mouth daily. Kellee pinedo Atorvastati n Calcium 40 MG oral Tablet 12-05 00:00: 00 Yes [id number] 40mg Take 1 tablet (40 mg total) by mouth daily. Kellee pinedo Clopidogrel Bisulfate (PLAVIX) 75 MG oral Tablet 12-05 00:00: 00 Yes [id number] 75mg Take 1 tablet (75 mg total) by mouth daily. Kellee pinedo Mometasone Furo-Formot camelia Fum (Dulera) 200-5 MCG/ACT inhalation Aerosol 12-05 00:00: 00 05-18 00:00 :00 No TWICE DAILY Kellee pinedo Vitamin D, Ergocalcife rol, 1.25 MG (66441 UT) oral Capsule 12-04 00:00: 00 Yes [id number] 21894E Q1W Take 1 capsule (50,000 units total) by mouth once a week. Kellee pinedo Ferrous Sulfate 325 (65 Fe) MG oral Tablet 12-04 00:00: 00 Yes [id number] 325mg QD Take 1 tablet (325 mg total) by mouth daily (with breakfast) . Kellee pinedo Clopidogrel Bisulfate (PLAVIX) 75 MG oral Tablet 12-04 00:00: 00 Yes [id number] 75mg QD Take 1 tablet (75 mg total) by mouth. Kellee pinedo Mirtazapine 45 MG oral Tablet 12-02 10:49: 07 12-02 00:00 :00 No [id number] 45mg Take 1 tablet (45 mg total) by mouth nightly. Kellee pinedo hydrOXYzine Pamoate 50 MG oral Capsule 12-02 10:49: 04 Yes [id number] 50mg Q.5D Take 1 capsule (50 mg total) by mouth 2 times daily as needed for anxiety. Kellee pinedo Ascorbic Acid 500 MG oral Tablet 12-02 10:48: 55 12-02 00:00 :00 No 50mg Take 50 mg by mouth. Kellee pinedo Suvorexant (Belsomra) 20 MG oral Tablet 12-02 00:00: 00 Yes [id number] 1{tbl} Take 1 tablet by mouth nightly. Kellee pinedo Lorazepam 1 MG oral Tablet 12-02 00:00: 00 12-12 00:00 :00 No [id number] 1mg Q.5D Take 1 tablet (1 mg total) by mouth 2 times daily as needed for anxiety. Kellee pinedo Doxepin HCl 3 MG oral Tablet 11-27 00:00: 00 05-18 00:00 :00 No [id number] 1{tbl} QD TAKE 1 TABLET BY MOUTH EVERY DAY AT NIGHT Kellee pinedo Aripiprazol e 5 MG oral Tablet 11-27 00:00: 00 05-18 00:00 :00 No [id number] 5mg QD TAKE 1 TABLET (5 MG TOTAL) BY MOUTH DAILY. Kellee pinedo Mirtazapine 45 MG oral Tablet 10-28 13:20: 59 Yes [id number] 45mg Take 1 tablet (45 mg total) by mouth nightly. Kellee pinedo Ascorbic Acid 500 MG oral Tablet 10-28 13:20: 47 Yes 50mg Take 50 mg by mouth. Kellee pinedo hydrOXYzine Pamoate 50 MG oral Capsule 10-28 13:20: 47 10-28 00:00 :00 No [id number] 50mg Q.5D Take 1 capsule (50 mg total) by mouth every 4 to 6 hours as needed. Kellee pinedo Sertraline HCl 150 MG oral Capsule 10-28 13:20: 03 10-28 00:00 :00 No 150mg Take 150 mg by mouth daily. Kellee pinedo Doxepin HCl 3 MG oral Tablet 10-28 00:00: 00 Yes [id number] 1{tbl} Take 1 tablet by mouth nightly. Kellee pinedo Aripiprazol e 5 MG oral Tablet 10-28 00:00: 00 Yes [id number] 5mg Take 1 tablet (5 mg total) by mouth daily. Kellee pinedo Suvorexant 10 MG oral Tablet 10-28 00:00: 00 12-02 00:00 :00 No [id number] 1{tbl} Take 1 tablet by mouth nightly. Kellee pinedo Sertraline HCl 50 MG oral Tablet 10-26 00:00: 00 Yes [id number] Kellee pinedo HYDROcodone -acetaminop hen (NORCO) 10-325 mg tablet 1 tablet 10-10 06:15: 00 10-10 05:25 :00 No 1{tbl} 1 tablet, Oral, ONCE NOW, 1 dose, On Sat10/11/23 at 0115, [place] [facility] iopamidol (ISOVUE 370-500 mL) injection 100 mL 10-10 05:00: 00 10-10 05:00 :00 No [id number] 100mL 100 mL, Intravenou s, ONCE, 1 dose, On Sat10/11/23 at 0000, Routine [facility] ketorolac (TORADOL) injection 30 mg [...] On [place] 10/10/23 at 2315, Routine [facility] ondansetron (ZOFRAN (PF)) injection 4 mg 10-10 04:00: 00 10-10 03:54 :00 No 4mg 4 mg, Slow IV Push, ONCE, 1 dose, On [place] 10/10/23 at 2300, [place] [facility] morpHINE (4 mg/mL) injection 4 mg 10-10 04:00: 00 10-10 03:54 :00 No 4mg 4 mg, Slow IV Push, ONCE, 1 dose, On [place] 10/10/23 at 2300, STAT [facility] traMADoL (ULTRAM) 50 mg tablet 10-10 00:00: 00 Yes [id number] 50mg Take 1 tablet by mouth every 6 (six) hours as needed for Pain (scale 7-10). Indication s: acute pain [facility] ondansetron (ZOFRAN) 4 mg tablet 10-10 00:00: 00 Yes [id number] 4mg Take 1 tablet by mouth every 8 (eight) hours as needed for Nausea and Vomiting (N/V). [facility] ketorolac 10 mg tablet 10-10 00:00: 00 Yes [id number] 10mg Take 1 tablet by mouth every 6 (six) hours as needed for Pain (scale 7-10). [facility] phenazopyri dine 200 mg tablet 10-10 00:00: 00 Yes [id number] 200mg Take 1 tablet by mouth in the morning and 1 tablet at noon and 1 tablet in the evening. [facility] Sertraline HCl 100 MG oral Tablet 10-09 00:00: 00 Yes [id number] 100mg Take 1 tablet (100 mg total) by mouth every morning. Kellee Buckley - Shobha pinedo acetaminoph en (TYLENOL) tablet 975 mg 2022-07 04:15: 00 07-02 03:11 :00 No 975mg 975 mg, Oral, ONCE, 1 dose, On Sat07/01/23 at 2215, [facility] dicyclomine (BENTYL) tablet 20 mg 2022-07 03:15: 00 07-02 03:11 :00 No 20mg 20 mg, Oral, ONCE, 1 dose, On Sat07/01/23 at 2115, [facility] ketorolac (TORADOL) injection 30 mg 2022-07 03:15: 00 07-02 02:32 :00 No 30mg 30 mg, Slow IV Push, ONCE, 1 dose, On Sat07/01/23 at 2115, Routine [facility] ondansetron (ZOFRAN (PF)) injection 4 mg 2022-07 03:00: 00 07-02 02:03 :00 No 4mg 4 mg, Slow IV Push, ONCE, 1 dose, On Sat07/01/23 at 2100, [facility] NaCl 0.9% (NS) bolus infusion 1,000 mL 2022-07 03:00: 00 07-02 04:10 :00 No 1000mL at 999 mL/hr, 1,000 mL, IV Infusion, ONCE, 1 dose, On Sat07/01/23 at 2100, STAT [facility] dicyclomine 20 mg tablet 2022-07 00:00: 00 Yes [id number] 20mg Take 1 tablet by mouth 4 (four) times daily. [facility] ondansetron 4 mg disintegrat ing tablet 2022-07 00:00: 00 Yes [id number] 4mg Take 1 tablet by mouth every 4 (four) hours as needed for Nausea and Vomiting (N/V). [facility] Alprazolam (Alprazolam *) 1 Mg TAB Alprazolam (Alprazolam *) 1 Mg TAB 2022-07 12:08: 00 06-14 00:00 :00 No 1 [facility] Trazodone Hcl (Desyrel 100 Mg*) 100 Mg TAB Trazodone Hcl (Desyrel 100 Mg*) 100 Mg TAB 2022-07 12:07: 00 06-06 12:08 :00 No 1 [facility] Aspirin (Aspirin Ec) 81 Mg Tablet Aspirin (Aspirin Ec) [address] 2022-07 11:55: 00 07-07 00:00 :00 No 81 [facility] Alprazolam (Xanax 2 Mg*) 2 Mg TAB Alprazolam (Xanax 2 Mg*) 2 Mg TAB 2022-07 11:09: 40 06-06 12:08 :00 No 2 [facility] Trazodone Hcl (Desyrel 300 Mg*) 300 Mg TAB Trazodone Hcl (Desyrel 300 Mg*) 300 Mg TAB 2022-07 11:09: 39 05-13 15:45 :00 No 300 [facility] Alprazolam 1 MG oral Tablet 2022-07 00:00: 00 12-12 00:00 :00 No [id number] 2mg Take 2 tablets (2 mg total) by mouth 2 times daily. Kellee pinedo Pantoprazol e * (Protonix Ec *) 20 Mg Tablet Pantoprazol e * (Protonix Ec *) [address] 2022-07 15:44: 00 06-05 00:28 :00 No 20 [facility] Sucralfate (Carafate *) 1 Gm TAB Sucralfate (Carafate *) 1 Gm TAB 2022-07 15:44: 00 06-05 00:28 :00 No 1 [facility] Ciprofloxac in Hcl (Cipro *) 500 Mg TAB Ciprofloxac in Hcl (Cipro *) 500 Mg TAB 2022-07 15:44: 00 05-16 00:00 :00 No 500 [facility] Pantoprazol e Sodium 20 MG oral Tablet Delayed Response 2022-07 00:00: 00 12-02 00:00 :00 No Take by mouth. Kellee pinedo ketorolac (TORADOL) injection 15 mg 2022-07 01:00: 00 05-10 00:09 :00 No 15mg 15 mg, Slow IV Push, ONCE, 1 dose, On Sat05/09/23 at 2000, [facility] proCHLORper azine (COMPAZINE) injection 5 mg 2022-07 23:30: 00 05-09 22:48 :00 No 5mg 5 mg, Slow IV Push, ONCE, 1 dose, On Sat05/09/23 at 1830, [facility] diphenhydrA MINE (BENADRYL) injection 25 mg [...] 2022-07 00:45: 00 05-01 00:45 :00 No [id number] 100mL 100 mL, Intravenou s, ONCE, 1 [...] ONCE, 1 dose, [facility]04[facility]30/23 [facility] 1845[facility] (BENADRYL) injection 25 mg 2022-07 23:00: 00 04-30 23:09 :00 No 25mg 25 mg, Slow IV Push, ONCE, 1 dose, On Sat04/30/23 at 1800, STAT [facility] dicyclomine 20 mg tablet 2022-07 00:00: 00 07-01 00:00 :00 No [id number] 20mg Take 1 tablet by mouth 4 (four) times daily. [facility] acetaminoph en (TYLENOL) tablet 1,000 mg 2022-07 02:45: 00 04-17 02:43 :00 No 1000mg 1,000 mg, Oral, ONCE, 1 dose, On Sat04/16/23 at 2145, [facility] ondansetron (ZOFRAN (PF)) injection 4 mg 2022-07 0 03:15: 00 04-09 02:13 :00 No 4mg 4 mg, Slow IV Push, ONCE, 1 dose, On Sat04/08/23 at 2215[facility]cl[facility] (BENTYL) tablet 20 mg 2022-07 0 03:15: 00 04-09 02:16 :00 No 20mg 20 mg, Oral, ONCE, 1 dose, On 04/08/23 at 2215, Routine [facility] [...] 2022-07 00:00: 00 07-01 00:00 :00 No [id number] 4mg Take 1 tablet by mouth every 8 (eight) hours as needed for Nausea and Vomiting (N/V). [facility] dicyclomine 20 mg tablet 2022-07 00:00: 00 04-30 00:00 :00 No [id number] 20mg Take 1 tablet by mouth 4 (four) times daily. [facility] acetaminoph en (TYLENOL) tablet 1,000 mg 03-10 04:30: 00 03-10 04:29 :00 No 1000mg 1,000 mg, Oral, ONCE, 1 dose, On 03/09/23 at 2330, [place] [facility] iopamidol (ISOVUE 370-500 mL) injection 85 mL 03-10 04:30: 00 03-10 04:30 :00 No [id number] 85mL 85 mL, Intravenou s, ONCE, 1 [...] 17 gram powder 03-09 00:00: 00 Yes [id number] 1{packe t} Take 1 Packet by mouth once daily as needed for Constipati on. [facility] Simethicone 125 mg 03-09 00:00: 00 Yes [id number] 125mg Take 1 capsule by mouth after meals and at bedtime as needed for Gas. [facility] iopamidol (ISOVUE 370-500 mL) injection 100 mL 03-02 06:15: 00 03-02 06:15 :00 No [id number] 100mL 100 mL, Intravenou s, ONCE, 1 dose, On 03/02/23 at 0115, Routine [facility] NaCl 0.9% (NS) IV infusion 1,000 mL 03-02 05:15: 00 Yes 1000mL at 999 mL/hr, Intravenou s, CONTINUOUS , Starting on 03/02/23 at 0015, Until Discontinu ed, Routine [facility] ketorolac (TORADOL) injection 30 mg 03-02 05:15: 00 03-02 04:20 :00 No 30mg 30 mg, Slow IV Push, ONCE, 1 dose, On 03/02/23 at 0015, Routine [facility] ondansetron (ZOFRAN (PF)) injection 4 mg 03-02 05:00: 00 03-02 05:24 :00 No 4mg 4 mg, Slow IV Push, ONCE, 1 dose, On 03/02/23 at 0000[facility] (4 mg/mL) injection 4 mg 03-02 05:00: 00 03-02 05:24 :00 No 4mg 4 mg, Slow IV Push, ONCE, 1 dose, On 03/02/23 at 0000, STAT [facility] ondansetron (ZOFRAN (PF)) injection 4 mg 03-02 04:15: 00 03-02 04:21 :00 No 4mg 4 mg, Slow IV Push, ONCE, 1 dose, On Sat03/01/23 at 2315, [facility] Ondansetron HCl 4 MG oral Tablet 03-02 00:00: 00 05-18 00:00 :00 No [id number] 4mg [id number] 3D Take 1 tablet (4 mg total) by mouth every 8 hours as needed. Kellee pinedo dicyclomine 20 mg tablet 03-02 00:00: 00 04-30 00:00 :00 No [id number] 20mg Take 1 tablet by mouth every 6 (six) hours as needed for Abdominal pain. [facility] metoclopram tracy HCl (REGLAN) injection 10 mg 02-18 06:45: 00 02-18 06:43 :00 No 10mg 10 mg, Slow IV Push, ONCE, 1 dose, On Sat02/18/23 at 0145, [facility] morpHINE (4 mg/mL) injection 4 mg [...] ONCE, 1 dose, On Sat02/17/23 at 2330, [facility] proMETHazin e 25 mg tablet 02-18 00:00: 00 Yes [id number] 25mg Take 1 tablet by mouth every [...] Sat02/16/23 at 0900, Until Discontinu ed [facility] enoxaparin (LOVENOX) injection 40 mg 02-16 14:00: 00 Yes 40mg 40 mg, Subcutaneo us, DAILY, First dose on Sat02/16/23 at 0900, Until Discontinu ed, Routine [facility] methocarbam oL (ROBAXIN) tablet 500 mg 02-16 06:04: 59 Yes 500mg 500 mg, Oral, Q6HPRN, Starting on 02/16/23 at 0104, Until Discontinu ed, Routine, Muscle Spasms [facility] ALPRAZolam (XANAX) tablet 2 mg 02-16 06:03: 54 Yes 2mg 2 mg, Oral, TIDPRN, Starting on 02/16/23 at 0103, Until Discontinu ed, Anxiety [facility] lactated ringers IV infusion 1,000 mL 02-16 03:15: 00 02-16 23:14 :00 No 1000mL at 100 mL/hr, 1,000 mL, IV Infusion, CONTINUOUS , Starting on Sat02/15/23 at 2215, Until 02/16/23 at 1814, Routine [facility] morpHINE (2 mg/mL) injection 2 mg 02-16 03:07: 02 02-17 01:08 :14 No 2mg 2 mg, Slow IV Push, Q4HPRN, Starting on Sat02/15/23 at 2207, Until 02/16/23 at 2008, Routine, Pain (scale 7-10) [facility] traMADoL (ULTRAM) tablet 50 mg 02-16 03:06: 59 02-18 03:05 :59 No 50mg 50 mg, Oral, Q8HPRN, Starting on Sat02/15/23 at 2206, Until Sat02/17/23 at 2205, Routine, Pain (scale 4-6) [facility] acetaminoph en (TYLENOL) tablet 1,000 [...] 02-16 00:30: 00 02-16 00:30 :00 No [id number] 80mL 80 mL, Intravenou s, ONCE, 1 dose, On Sat02/15/23 at 1930, Routine [facility] lactated ringers IV infusion 1,000 mL 02-16 00:00: 00 02-16 03:07 :30 No [id number] 1000mL at 500 mL/hr, 1,000 mL, IV Infusion, CONTINUOUS , Starting on Sat02/15/23 at 1900, Until Sat02/15/23 at 2207, [place] [facility] FENTanyl PF (SUBLIMAZE (PF)) injection 75 mcg 02-15 23:45: 00 02-15 23:13 :00 No [id number] 75ug 75 mcg, Slow IV Push, ONCE, 1 dose, On Sat02/15/23 at 1845, Routine [facility] dicyclomine (BENTYL) injection 20 mg 02-15 22:15: 00 02-15 21:46 :00 No [id number] 20mg 20 mg, Intramuscu lar, ONCE NOW, 1 dose, On Sat02/15/23 at 1715, Routine [facility] LORazepam (ATIVAN) injection 1 mg 02-15 21:45: 00 02-15 21:46 :00 No [id number] 1mg 1 mg, Slow IV Push, ONCE, 1 dose, On Sat02/15/23 at 1645, STAT [facility] ondansetron (ZOFRAN (PF)) injection 4 mg 02-15 21:45: 00 02-15 21:46 :00 No [id number] 4mg 4 mg, Slow IV Push, ONCE, 1 dose, On Sat02/15/23 at 1645, [place] [facility] HYDROcodone -acetaminop hen (NORCO) 10-325 mg tablet 1 tablet 02-15 20:15: 00 02-15 19:52 :00 No [id number] 1{tbl} 1 tablet, Oral, ONCE, 1 dose, [...] 02-15 19:30: 00 02-15 19:52 :00 No [id number] 20mg 20 mg, Oral, ONCE, 1 dose, On Sat02/15/23 at 1430, [place] [facility] ibuprofen (IBU) tablet 800 mg 02-15 19:30: 00 02-15 19:52 :00 No [id number] 800mg 800 mg, Oral, ONCE, 1 dose, On Sat02/15/23 at 1430, [place] [facility] losartan 50 mg tablet 02-15 13:44: 36 02-15 00:00 :00 No 50mg Take 1 tablet by mouth in the morning. [facility] [place]-3-DHA -EPA-Fish Oil (FISH OIL) 1,000 mg (120 [...] 1 dose, On Sat12/14/21 at 0045, STAT [facility] [...] 1 dose, On [place] 12/14/21 [facility] 0045[facility] ondans[facility] (ZOFRAN (PF)) injection 4 mg 12-14 04:45: 00 12-14 03:50 :00 No 4mg 4 mg, Slow IV Push, ONCE, 1 dose, On Sat12/13/21 at 2345[facility] FENTanyl PF (SUBLIMAZE (PF)) injection [...] 12-14 00:00: 00 02-15 00:00 :00 No [id number] 500mg Take 1 tablet by mouth 2 (two) times daily with meals. [facility] cefpodoxime 200 mg tablet 12-14 00:00: 00 12-22 04:59 :00 No [id number] 200mg Take 1 tablet by mouth 2 [...] 1 dose, On 11/11/21 at 2230, Routine
membership director approving Restricted medication : DEE WANG [facility] nitroglycer in (NITROSTAT) sublingual tablet 0.4 mg 11-12 03:30: 00 11-12 02:26 :00 No .4mg 0.4 mg, Sublingual , ONCE, 1 dose, On 11/11/21 at 2230, [facility] aspirin E.C. (ECOTRIN) tablet 325 mg [...] ONCE, 1 dose, On 11/11/21 at 2130, [facility] NaCl 0.9% (NS) bolus infusion 1,000 mL 11-12 02:30: 00 11-12 02:30 :00 No 1000mL at 999 mL/hr, 1,000 mL, IV Infusion, ONCE, 1 dose, On Sat11/11/21 at 2130, [place] [facility] hydrOXYzine 50 mg tablet 07 00:00: 00 04-08 00:00 :00 No [id number] 50mg Take 1 tablet by mouth every 8 (eight) hours as needed for Anxiety. [facility] ketorolac (TORADOL) injection 30 mg 09-12 05:45: 00 09-12 04:54 :00 No 30mg 30 mg, Slow IV Push, ONCE, 1 dose, On Sat09/11/21 at 2345, Routine
membership director approving Restricted medication : DEE WANG [facility] [...] 09-12 02:45: 00 09-12 03:00 :00 No [id number] 120mL 120 mL, Intravenou s, ONCE, 1 dose, On Sat09/11/21 at 2100, Routine [facility] sodium chloride (NS) injection 5 mL 09-12 01:33: 26 Yes 5mL 5 mL, Intravenou s, PRN, Starting on Sat09/11/21 at 1933, Until Discontinu ed, Routine, IV line flushing [facility] ibuprofen 600 mg tablet 09-11 00:00: 00 02-15 00:00 :00 No [id number] 600mg Take 1 tablet by mouth every 6 (six) hours as needed for Pain (scale 4-6). [facility] cefdinir 300 mg capsule 09-11 00:00: 00 09-19 04:59 :00 No [id number] 300mg Take 1 capsule by mouth 2 [...] 500 mg tablet 08-15 00:00: 00 Yes [id number] 500mg Take 1 tablet by mouth every [...] 08-15 00:00: 00 02-15 00:00 :00 No [id number] 100mg Take 1 capsule by mouth 2 [...] 2020-07 00:00: 00 06-13 05:59 :00 No [id number] 20mg Take 1 tablet by mouth 2 (two) times daily for 15 days. [facility] escitalopra m oxalate (LEXAPRO) tablet 10 mg 2020-07 003 02:00: 00 Yes 10mg 10 mg, Oral, QHS, First dose on 04/08/21 at 2100, Until Discontinu ed, Routine [facility] aspirin 81 mg chewable tablet 2020-07 0- 00:00: 00 05-10 04:59 :00 No [id number] 81mg Take 1 tablet by mouth daily [...] 04/08/21 at 1700, Until Discontinu ed, Routine
membership director approving Restricted medication : ALEXEY ALEGRE [facility] [...] times daily. [facility] [place]-3-DHA -EPA-Fish Oil (FISH OIL) 1,000 mg (120 [...] at 0900, Until Discontinu ed, Routine [facility] enoxaparin (LOVENOX) injection 40 mg 2020-07 14:00: 00 Yes 40mg 40 mg, Subcutaneo us, DAILY, First dose on Sat04/08/21 at 0900, Until Discontinu ed, Routine [facility] OLANZapine (ZyPREXA) tablet 2.5 mg 2020-07 13:00: 00 Yes 2.5mg 2.5 mg, Oral, BID, First dose on Sat04/08/21 at 0800, Until Discontinu ed, Routine [facility] methocarbam oL (ROBAXIN) tablet 750 mg 2020-07 13:00: 00 Yes 750mg 750 mg, Oral, TID, First dose on Sat04/08/21 at 0800, Until Discontinu ed, Routine [facility] LORazepam (ATIVAN) injection 0.5 mg 2020-07 04:07: 43 Yes .5mg 0.5 mg, Slow IV Push, PRN, 2 doses, Starting on Sat04/07/21 at 2307, Until Discontinu ed, Routine, Anxiety [facility] hydrOXYzine (ATARAX) tablet 50 mg 2020-07 02:51: 23 Yes 50mg 50 mg, Oral, Q4HPRN, Starting on Sat04/07/21 at 2151, Until Discontinu ed, Itching [facility] LORazepam (ATIVAN) tablet 0.5 mg 2020-07 02:05: 29 Yes .5mg 0.5 mg, Oral, PRN, 2 doses, Starting on Sat04/07/21 at 2105, Until Discontinu ed, Routine, Anxiety [facility] morpHINE injection 4 mg 2020-07 00:00: 00 04-07 22:58 :00 No 4mg 4 mg, Slow IV Push, ONCE, 1 dose, On Sat04/07/21 at 1900, STAT [facility] ondansetron (ZOFRAN (PF)) injection 4 mg 2020-07 00:00: 00 04-07 22:56 :00 No 4mg 4 mg, Slow IV Push, ONCE, 1 dose, On Sat04/07/21 at 1900, [place] [facility] morpHINE injection 4 mg 2020-07 23:58: 03 04-08 23:57 :03 No 4mg 4 mg, Slow IV Push, Q4HPRN, Starting on Sat04/07/21 at 1858, Until 04/08/21 at 1857, Routine, Pain (scale 7-10) [facility] HYDROcodone -acetaminop hen (NORCO 5) 5-325 mg tablet 1 tablet 2020-07 23:58: 00 04-09 23:57 :00 No 1{tbl} 1 tablet, Oral, Q6HPRN, Starting on Sat04/07/21 at 1858, Until 04/09/21 at 1857, Routine, Pain (scale 4-6) [facility] acetaminoph en (TYLENOL) tablet 650 mg 2020-07 23:57: 57 Yes 650mg 650 mg, Oral, Q6HPRN, Starting on Sat04/07/21 at 1857, Until Discontinu ed, Routine, Pain (scale 1-3) [facility] aspirin tablet 325 mg 2020-07 23:00: 00 04-07 21:56 :00 No 325mg 325 mg, Oral, ONCE, 1 dose, On Sat04/07/21 at 1800, STAT [facility] nitroglycer in (NITROSTAT) sublingual tablet 0.4 mg 2020-07 21:51: 01 04-07 22:46 :00 No .4mg 0.4 mg, Sublingual , Q5MIN PRN, 3 doses, Starting on Sat04/07/21 at 1651, Until Discontinu ed, [place], Chest pain [facility] fluconazole (DIFLUCAN) tablet 150 mg 01-12 14:00: 00 Yes 150mg 150 mg, Oral, DAILY, First dose on [place] 01/12/21 at 0900, Until Discontinu ed, [place]
Re ason for Anti-Infec tive: Empiric Therapy for Suspected Infection< br>Empiric Therapy Site: HEENT
D uration of therapy: 72 hours [facility] cefTRIAXone (ROCEPHIN) 1,000 mg in [...] 01-12 00:00: 00 04-07 00:00 :00 No [id number] 500mg Take 1 capsule by mouth 3 [...] ONCE, 1 dose, 12/10/20 at 1845, [place] [facility] NaCl 0.9% (NS) bolus infusion 2,000 mL 12-10 22:45: 00 12-11 01:29 :00 No 2000mL at 999 mL/hr, 2,000 mL, IV Infusion, ONCE, 1 dose, 12/10/20 at 1745, [place] [facility] proMETHazin e 25 mg tablet 12-10 00:00: 00 04-07 00:00 :00 No [id number] 12.5mg Take 0.5 tablets by mouth every [...] mg, Slow IV Push, ONCE, 1 dose, [place] 12/04/20 at 1615, [place] [facility] morpHINE injection 4 mg 12-04 21:15: 00 12-04 20:21 :00 No 4mg 4 mg, Slow IV Push, ONCE, 1 dose, [place] 12/04/20 at 1615, STAT [facility] ALPRAZolam (XANAX) 2 mg tablet 11-04 04:24: 19 11-03 00:00 :00 No 2mg Take 2 mg by mouth at bedtime. [facility] LORazepam (ATIVAN) injection 1 mg 11-04 04:00: 00 11-04 02:57 :00 No 1mg 1 mg, Slow IV Push, ONCE, 1 dose, [facility] 11/03/20 at 2300, STAT [facility] LORazepam (ATIVAN) tablet 1 mg 11-04 04:00: 00 11-04 02:57 :00 No 1mg 1 mg, Oral, ONCE, 1 dose, [facility] 11/03/20 at 2300, [facility] by mouth. [facility] Ciprofloxac in/Dexameth asone (Ciprodex 0.3%-0.1% Otic*) 1 Ea SUSP Ciprofloxac in/Dexameth asone (Ciprodex 0.3%-0.1% Otic*) 1 Ea SUSP 09-19 13:53: 00 09-30 00:00 :00 No 3 [facility] ibuprofen (IBU) tablet 800 mg 09-17 16:55: 00 09-17 16:57 :00 No 800mg 800 mg, Oral, ONCE, 1 dose, 09/17/20 at 1100, [place] [facility] benzonatate 100 mg capsule 09-17 00:00: 00 04-07 00:00 :00 No [id number] 100mg Take 1 capsule by mouth 3 (three) times daily as needed for Cough. [facility] amoxicillin 500 mg capsule 09-17 00:00: 00 09-28 04:59 :00 No [id number] 500mg Take 1 capsule by mouth 3 (three) times daily for 10 days. [facility] HYDROcodone -acetaminop hen (NORCO) 10-325 mg tablet 1 tablet 09-07 07:45: 00 09-07 07:09 :00 No 1{tbl} 1 tablet, Oral, ONCE, 1 dose, 09/07/20 at 0145, Routine [facility] ondansetron (ZOFRAN-ODT ) disintegrat ing tablet 4 mg 09-07 07:15: 00 09-07 07:15 :00 No 4mg 4 mg, Oral, ONCE, 1 dose, 09/07/20 at 0130, Routine [facility] ibuprofen 800 mg tablet 09-07 00:00: 00 Yes [id number] 800mg Take 1 tablet by mouth every 8 (eight) hours as needed for Pain (scale 4-6). [facility] ketorolac (TORADOL) injection 30 mg 08-28 10:45: 00 08-28 09:48 :00 No 30mg 30 mg, Slow IV Push, ONCE, 1 dose, 08/28/20 at 0445, Routine
membership director approving Restricted medication : OLIVIA GARCIA [facility] [...] 0400, Routine [facility] iohexol (OMNIPAQUE 350 BULK-100 mL) injection 120 mL 08-28 09:30: 00 08-28 09:11 :00 No 120mL 120 mL, Intravenou s, ONCE, 1 dose, 08/28/20 at 0330, Routine [facility] dicyclomine 20 mg tablet 08-28 00:00: 00 04-07 00:00 :00 No [id number] 20mg Take 1 tablet by mouth every 6 (six) hours as needed for Abdominal pain. [facility] ondansetron (ZOFRAN) 4 mg tablet 08-28 00:00: 00 09-17 00:00 :00 No [id number] 4mg Take 1 tablet by mouth every 8 (eight) hours as needed for Nausea and Vomiting (N/V). [facility] FENTanyl PF (SUBLIMAZE (PF)) injection 25 mcg 08-14 19:00: 00 08-14 18:09 :00 No 25ug 25 mcg, Slow IV Push, ONCE, 1 dose, 2/7/21 at 1300, STAT [facility] [...] 08-14 00:00: 00 04-07 00:00 :00 No [id number] 100mg Take 5 mL by mouth every 4 (four) hours. [facility] ondansetron 4 mg disintegrat ing tablet 08-14 00:00: 00 09-17 00:00 :00 No [id number] 4mg Take 1 tablet by mouth every 8 (eight) hours as needed for Nausea and Vomiting (N/V). [facility] ibuprofen 600 mg tablet 08-14 00:00: 00 09-17 00:00 :00 No [id number] 600mg Take 1 tablet by mouth every 6 (six) hours as needed for Pain (scale 4-6). [facility] amoxicillin -clavulanat e 875-125 mg per tablet 08-14 00:00: 00 08-25 05:59 :00 No [id number] 1{tbl} Take 1 tablet by mouth 2 [...] ONCE, 1 dose, 2/3/21 at 1945, STAT [facility] [...] 08-07 00:00: 00 09-17 00:00 :00 No [id number] 800mg Take 1 tablet by mouth every 8 (eight) hours. [facility] amoxicillin 500 mg capsule 08-07 00:00: 00 09-17 00:00 :00 No [id number] 500mg Take 1 capsule by mouth 3 [...] 4mg 4 mg, Oral, ONCE, 1 dose, [facility] 06/30/20 at 1915, Routine [facility] ketorolac (TORADOL) injection 30 mg 2019-07 01:15: 00 07-01 00:52 :00 No 30mg 30 mg, Slow IV Push, ONCE, 1 dose, [place] 06/30/20 at 1915, [facility] Rest[facility] medication : ABDIAS ROBERTSON [facility] albuterol 90 mcg/actuati on inhaler 2019-07 00:00: 00 04-07 00:00 :00 No [id number] 2{puff} Inhale 2 Puffs every 4 (four) hours as needed for Wheezing or Shortness of Breath. [facility] hydrOXYzine 25 mg tablet 2019-07 00:00: 09-17 00:00 :00 No [id number] 25mg Take 1 tablet by mouth every 6 (six) hours as needed for Anxiety. [facility] naproxen sodium (ANAPROX DS) 550 mg tablet 2019-07 00:00: 00 04-07 00:00 :00 No [id number] 550mg Take 1 tablet by mouth 2 (two) times daily with meals. [facility] methylPREDN ISolone (MEDROL, BEBETO,) 4 mg tablets 2019-07 00:00: 09-17 00:00 :00 No [id number] Take by mouth SEE-INSTRU CTIONS. follow package directions [facility] methocarbam oL 500 mg tablet 2019-07 00:00: 00 07-04 05:59 :00 No [id number] 500mg Take 1 tablet by mouth 3 (three) times daily for 5 days. [facility] proMETHazin e (PHENERGAN) tablet 25 mg 2019-07 04:45: 00 06-13 03:37 :00 No 25mg 25 mg, Oral, ONCE, 1 dose, [place] 12/6/20 [facility] 2245[facility] (ZOFRAN (PF)) [facility] 4 mg 2019-07 03:00: 00 06-13 01:59 :00 No 4mg 4 mg, Slow IV Push, ONCE, 1 dose, 06/12/20 at 2100, [facility] ketorolac (TORADOL) injection 15 mg 2019-07 03:00: 00 06-13 01:58 :00 No 15mg 15 mg, Intramuscu lar, ONCE, 1 dose, 06/12/20 at 2100, [facility]
Fa culty member approving Restricted [...] Push, ONCE, 1 dose, 06/12/20 at 1845, [facility] NaCl 0.9% (NS) bolus infusion 1,000 mL 2019-07 23:45: 00 06-13 03:54 :00 No 1000mL at 999 mL/hr, 1,000 mL, IV Infusion, ONCE, 1 dose, 06/12/20 at 1745, [facility] dicyclomine 20 mg tablet 2019-07 00:00: 00 04-07 00:00 :00 No [id number] 20mg Take 1 tablet by mouth 4 (four) times daily as needed for Abdominal pain. [facility] proMETHazin e 25 mg tablet 2019-07 00:00: 00 09-17 00:00 :00 No [id number] 25mg Take 1 tablet by mouth every 6 (six) hours as needed for Nausea and Vomiting (N/V). [facility] famotidine 20 mg tablet 2019-07 00:00: 00 06-27 05:59 :00 No [id number] 20mg Take 1 tablet by mouth at bedtime for 14 days. [facility] haloperidol lactate (HALDOL) injection 2.5 mg 2019-07 01:00: 00 05-16 23:51 :00 No 2.5mg 2.5 mg, Intravenou s, ONCE, 1 dose, 05/16/20 at 1900, STAT [facility] NaCl 0.9% (NS) bolus infusion 1,000 mL 2019-07 23:45: 00 05-17 00:54 :00 No 1000mL at 999 mL/hr, 1,000 mL, IV Infusion, ONCE, 1 dose, [facility] 05/16/20 at 1745, [facility] [facility] proMETHazin e (PHENERGAN) 25 mg suppository 2019-07 00:00: 00 Yes [id number] 25mg Insert 1 Suppositor y into rectum every 4 (four) hours as needed for Nausea and Vomiting (N/V). [facility] ondansetron (ZOFRAN (PF)) injection 4 mg 2019-07 07:30: 00 05-15 06:26 :00 No 4mg 4 mg, Slow IV Push, ONCE, 1 dose, [facility] 0130[facility] iohexol (OMNIPAQUE 350 BULK-100 mL) injection 120 mL 2019-07 07:00: 00 05-15 06:52 :00 No 120mL 120 mL, Intravenou s, ONCE, 1 dose, 05/15/20 at 0100, Routine [facility] ondansetron (ZOFRAN (PF)) injection 4 mg 2019-07 06:30: 00 05-15 05:52 :00 No 4mg 4 mg, Slow IV Push, ONCE, 1 dose, 05/15/20 at 0030, [facility] ALPRAZolam (XANAX) 2 mg tablet 2019-07 05:30: 59 Yes 2mg Take 2 mg by mouth at bedtime. [facility] zolpidem 5 mg tablet 2020-0 6-15 00:00: 00 04-07 00:00 :00 No 5mg Take 5 mg by mouth. [facility] Immunizations Ordered Immunization Name Filled Immunization Name Date Status Comments Source Covid-19 Vaccine Moderna (Spikevax), Mrna-lnp, Zackery Protein, Pf Unknown Completed [facility] - External Covid-19 Vaccine Moderna (Spikevax), Mrna-lnp, Zackery Protein, Pf Unknown Completed [facility] - External Covid-19 Vaccine Moderna (Spikevax), Mrna-lnp, Zackery Protein, Pf Unknown Completed [facility] External Covid-19 Vaccine Moderna (Spikevax), Mrna-lnp, Zackery Protein, Pf Unknown Completed [facility] External Covid-19 Vaccine Moderna (Spikevax), Mrna-lnp, Zackery Protein, Pf Unknown Completed [facility] External Covid-19 Vaccine Moderna (Spikevax), Mrna-lnp, Zackery Protein, Pf Unknown Completed [facility] External Covid-19 Vaccine Moderna (Spikevax), Mrna-lnp, Zackery Protein, Pf Unknown Completed [facility] External Covid-19 Vaccine Moderna (Spikevax), Mrna-lnp, Zackery Protein, Pf Unknown Completed [facility] Vital Signs Vital Name Observation Time Observation Value Comments S florace Body temperature 2024-07-19 07:17:00 36.56 Latanya [facility] Heart rate 2024-07-19 07:14:00 74 /min [facility] Respiratory rate 2024-07-19 07:14:00 27 /min [facility] Oxygen saturation in Arterial blood by Pulse oximetry 2024-07-19 07:14:00 100 /min [facility] Systolic blood pressure 2024-07-19 07:00:00 123 mm[Hg] [facility] Diastolic blood pressure 2024-07-19 07:00:00 93 mm[Hg] [facility] Body height 2024-07-19 04:44:00 157.5 cm [facility] Body weight 2024-07-19 04:44:00 104.327 kg [facility] BMI 2024-07-19 04:44:00 42.07 kg/m2 [facility] Systolic blood pressure 2024-07-04 07:00:00 132 mm[Hg] [facility] Diastolic blood pressure 2024-07-04 07:00:00 98 mm[Hg] [facility] Heart rate 2024-07-04 07:00:00 85 /min [facility] Body temperature 2024-07-04 07:00:00 36.78 Latanya [facility] Respiratory rate 2024-07-04 07:00:00 18 /min [facility] Oxygen saturation in Arterial blood by Pulse oximetry 2024-07-04 07:00:00 94 /min [facility] Body height 2024-07-04 01:53:00 157.5 cm [facility] Body weight 2024-07-04 01:53:00 105.688 kg [facility] BMI 2024-07-04 01:53:00 42.62 kg/m2 [facility] Systolic blood pressure 2024-06-21 08:00:00 180 mm[Hg] [facility] Diastolic blood pressure 2024-06-21 08:00:00 107 mm[Hg] [facility] Heart rate 2024-06-21 08:00:00 89 /min [facility] Body temperature 2024-06-21 08:00:00 37.11 Latanya [facility] Respiratory rate 2024-06-21 08:00:00 22 /min [facility] Body height 2024-06-21 08:00:00 157.5 cm [facility] Body weight 2024-06-21 08:00:00 108.41 kg [facility] BMI 2024-06-21 08:00:00 43.71 kg/m2 [facility] Oxygen saturation in Arterial blood by Pulse oximetry 2024-06-21 08:00:00 100 /min [facility] Heart rate 2024-06-15 06:22:00 87 /min [facility] Body temperature 2024-06-15 06:22:00 37.11 Latanya [facility] Oxygen saturation in Arterial blood by Pulse oximetry 2024-06-15 06:22:00 96 /min [facility] Systolic blood pressure 2024-06-15 06:00:00 137 mm[Hg] [facility] Diastolic blood pressure 2024-06-15 06:00:00 85 mm[Hg] [facility] Respiratory rate 2024-06-15 06:00:00 15 /min [facility] Body height 2024-06-15 03:23:00 157.5 cm [facility] Body weight 2024-06-15 03:23:00 109.997 kg [facility] BMI 2024-06-15 03:23:00 44.35 kg/m2 [facility] Body temperature 2024-06-07 08:35:48 36.89 Latanya [facility] Systolic blood pressure 2024-06-07 08:00:00 129 mm[Hg] [facility] Diastolic blood pressure 2024-06-07 08:00:00 108 mm[Hg] [facility] Heart rate 2024-06-07 08:00:00 69 /min [facility] Respiratory rate 2024-06-07 08:00:00 24 /min [facility] Oxygen saturation in Arterial blood by Pulse oximetry 2024-06-07 08:00:00 97 /min [facility] Body height 2024-06-07 04:02:00 157.5 cm [facility] Body weight 2024-06-07 04:02:00 105.688 kg [facility] BMI 2024-06-07 04:02:00 42.62 kg/m2 [facility] Systolic blood pressure 2024-05-19 19:32:00 130 mm[Hg] [facility] Diastolic blood pressure 2024-05-19 19:32:00 74 mm[Hg] [facility] Heart rate 2024-05-19 19:32:00 84 /min [facility] Respiratory rate 2024-05-19 19:32:00 18 /min [facility] Oxygen saturation in Arterial blood by Pulse oximetry 2024-05-19 19:32:00 99 /min [facility] Body temperature 2024-05-19 17:44:00 36.83 Latanya [facility] Body height 2024-05-19 17:44:00 157.5 cm [facility] Body weight 2024-05-19 17:44:00 108.863 kg [facility] BMI 2024-05-19 17:44:00 43.90 kg/m2 [facility] Systolic blood pressure 2024-05-18 16:21:00 126 [...] External Heart rate 2024-05-18 04:14:00 111 /min [facility] Body temperature 2024-05-18 04:14:00 37 Latanya [facility] Respiratory rate 2024-05-18 04:14:00 27 /min [facility] Oxygen saturation in Arterial blood by Pulse oximetry 2024-05-18 04:14:00 94 /min [facility] Systolic blood pressure 2024-05-18 04:00:00 141 mm[Hg] [facility] Diastolic blood pressure 2024-05-18 04:00:00 122 mm[Hg] [facility] Body height 2024-05-18 00:33:00 157.5 cm [facility] Body weight 2024-05-18 00:33:00 107.502 kg [facility] BMI 2024-05-18 00:33:00 43.35 kg/m2 [facility] Heart rate 2024-05-08 02:05:00 91 /min [facility] Respiratory rate 2024-05-08 02:05:00 22 /min [facility] Oxygen saturation in Arterial blood by Pulse oximetry 2024-05-08 02:05:00 95 /min [facility] Systolic blood pressure 2024-05-08 02:00:00 140 mm[Hg] [facility] Diastolic blood pressure 2024-05-08 02:00:00 86 mm[Hg] [facility] Body temperature 2024-05-07 23:46:00 36.78 Latanya [facility] Body height 2024-05-07 23:46:00 157.5 cm [facility] Body weight 2024-05-07 23:46:00 107.729 kg [facility] BMI 2024-05-07 23:46:00 43.44 kg/m2 [facility] Height 2024-04-10 16:28:00 157.891773 cm [facility] Weight 2024-04-10 16:28:00 104.284306 kg [facility] BMI (Body Mass Index) 2024-04-10 16:28:00 42.1 kg/m2 [facility] Systolic blood pressure 2024-04-09 01:30:00 134 mm[Hg] [facility] Diastolic blood pressure 2024-04-09 01:30:00 64 mm[Hg] [facility] Heart rate 2024-04-09 01:30:00 102 /min [facility] Body temperature 2024-04-09 01:30:00 36.61 Latanya [facility] Respiratory rate 2024-04-09 01:30:00 17 /min [facility] Oxygen saturation in Arterial blood by Pulse oximetry 2024-04-09 01:30:00 96 /min [facility] Body height 2024-04-08 22:31:00 157.5 cm [facility] Body weight 2024-04-08 22:31:00 104.327 kg [facility] BMI 2024-04-08 22:31:00 42.07 kg/m2 [facility] Body temperature 2023-12-13 14:10:00 36.72 Latanya [...] Systolic blood pressure 2023-10-11 05:00:00 126 mm[Hg] [facility] Diastolic blood pressure 2023-10-11 05:00:00 87 mm[Hg] [facility] Heart rate 2023-10-11 05:00:00 94 /min [facility] Respiratory rate 2023-10-11 05:00:00 22 /min [facility] Oxygen saturation in Arterial blood by Pulse oximetry 2023-10-11 05:00:00 98 /min [facility] Body temperature 2023-10-11 02:28:00 37.22 Latanya [facility] Body height 2023-10-11 02:28:00 157.5 cm [facility] Body weight 2023-10-11 02:28:00 99.791 kg [facility] BMI 2023-10-11 02:28:00 40.24 kg/m2 [facility] Systolic blood pressure 2023-07-02 04:10:00 147 mm[Hg] [facility] Diastolic blood pressure 2023-07-02 04:10:00 89 mm[Hg] [facility] Heart rate 2023-07-02 04:10:00 73 /min [facility] Respiratory rate 2023-07-02 04:10:00 19 /min [facility] Oxygen saturation in Arterial blood by Pulse oximetry 2023-07-02 04:10:00 98 /min [facility] Body temperature 2023-07-02 01:47:00 36.78 Latanya [facility] Body height 2023-07-02 01:47:00 160 cm [facility] Body weight 2023-07-02 01:47:00 97.659 kg [facility] BMI 2023-07-02 01:47:00 38.14 kg/m2 [facility] Systolic blood pressure 2023-05-10 01:00:00 133 mm[Hg] [facility] Diastolic blood pressure 2023-05-10 01:00:00 81 mm[Hg] [facility] Heart rate 2023-05-10 01:00:00 64 /min [facility] Respiratory rate 2023-05-10 01:00:00 21 /min [facility] Oxygen saturation in Arterial blood by Pulse oximetry 2023-05-10 01:00:00 96 /min [facility] Body temperature 2023-05-09 22:43:00 36.67 Latanya [facility] Body height 2023-05-09 22:43:00 157.5 cm [facility] Body weight 2023-05-09 22:43:00 99.791 kg [facility] BMI 2023-05-09 22:43:00 40.24 kg/m2 [facility] Systolic blood pressure 2023-05-01 01:00:00 107 mm[Hg] [facility] Diastolic blood pressure 2023-05-01 01:00:00 80 mm[Hg] [facility] Heart rate 2023-05-01 01:00:00 80 /min [facility] Body temperature 2023-05-01 01:00:00 37.06 Latanya [facility] Respiratory rate 2023-05-01 01:00:00 16 /min [facility] Oxygen saturation in Arterial blood by Pulse oximetry 2023-05-01 01:00:00 98 /min [facility] Body height 2023-04-30 22:16:00 157.5 cm [facility] Body weight 2023-04-30 22:16:00 95.255 kg [facility] BMI 2023-04-30 22:16:00 38.41 kg/m2 [facility] Systolic blood pressure 2023-04-17 02:00:00 147 mm[Hg] [facility] Diastolic blood pressure 2023-04-17 02:00:00 83 mm[Hg] [facility] Heart rate 2023-04-17 02:00:00 90 /min [facility] Respiratory rate 2023-04-17 02:00:00 18 /min [facility] Oxygen saturation in Arterial blood by Pulse oximetry 2023-04-17 02:00:00 96 /min [facility] Body temperature 2023-04-17 01:33:00 36.78 Latanya [facility] Body height 2023-04-17 01:33:00 157.5 cm [facility] Body weight 2023-04-17 01:33:00 99.791 kg [facility] BMI 2023-04-17 01:33:00 40.24 kg/m2 [facility] Systolic blood pressure 2023-04-09 01:04:48 135 mm[Hg] [facility] Diastolic blood pressure 2023-04-09 01:04:48 84 mm[Hg] [facility] Heart rate 2023-04-09 01:04:48 67 /min [facility] Respiratory rate 2023-04-09 01:04:48 16 /min [facility] Oxygen saturation in Arterial blood by Pulse oximetry 2023-04-09 01:04:48 99 /min [facility] Body temperature 2023-04-08 22:16:00 36.67 Latanya [facility] Body height 2023-04-08 22:16:00 157.5 cm [facility] Body weight 2023-04-08 22:16:00 99.791 kg [facility] BMI 2023-04-08 22:16:00 40.24 kg/m2 [facility] Systolic blood pressure 2023-03-10 05:00:00 156 mm[Hg] [facility] Diastolic blood pressure 2023-03-10 05:00:00 94 mm[Hg] [facility] Heart rate 2023-03-10 05:00:00 75 /min [facility] Respiratory rate 2023-03-10 05:00:00 21 /min [facility] Oxygen saturation in Arterial blood by Pulse oximetry 2023-03-10 05:00:00 97 /min [facility] Body temperature 2023-03-10 01:20:00 36.72 Latanya [facility] Body height 2023-03-10 01:20:00 157.5 cm [facility] Body weight 2023-03-10 01:20:00 100.381 kg [facility] BMI 2023-03-10 01:20:00 40.48 kg/m2 [facility] Systolic blood pressure 2023-03-02 06:00:00 126 mm[Hg] [facility] Diastolic blood pressure 2023-03-02 06:00:00 79 mm[Hg] [facility] Heart rate 2023-03-02 06:00:00 69 /min [facility] Respiratory rate 2023-03-02 06:00:00 23 /min [facility] Oxygen saturation in Arterial blood by Pulse oximetry 2023-03-02 06:00:00 94 /min [facility] Body temperature 2023-03-02 00:34:00 37.28 Latanya [facility] Body height 2023-03-02 00:34:00 157.5 cm [facility] Body weight 2023-03-02 00:34:00 99.791 kg [facility] BMI 2023-03-02 00:34:00 40.24 kg/m2 [facility] Systolic blood pressure 2023-02-18 06:46:00 126 mm[Hg] [facility] Diastolic blood pressure 2023-02-18 06:46:00 77 mm[Hg] [facility] Heart rate 2023-02-18 06:46:00 79 /min [facility] Respiratory rate 2023-02-18 06:46:00 16 /min [facility] Oxygen saturation in Arterial blood by Pulse oximetry 2023-02-18 06:46:00 95 /min [facility] Body temperature 2023-02-18 03:55:00 36.72 Latanya [facility] Body height 2023-02-18 03:55:00 157.5 cm [facility] Body weight 2023-02-18 03:55:00 102.331 kg [facility] BMI 2023-02-18 03:55:00 41.26 kg/m2 [facility] Systolic blood pressure 2023-02-17 16:20:00 113 mm[Hg] [facility] Diastolic blood pressure 2023-02-17 16:20:00 65 mm[Hg] [facility] Heart rate 2023-02-17 16:20:00 65 /min [facility] Body temperature 2023-02-17 16:20:00 36.83 Latanya [facility] Respiratory rate 2023-02-17 16:20:00 16 /min [facility] Oxygen saturation in Arterial blood by Pulse oximetry 2023-02-17 16:20:00 97 /min [facility] Body weight 2023-02-17 08:50:00 99.973 kg [facility] BMI 2023-02-17 08:50:00 40.31 kg/m2 [facility] Body height 2023-02-16 01:19:00 157.5 cm [facility] Systolic blood pressure 2022-01-10 01:24:00 120 mm[Hg] [facility] Diastolic blood pressure 2022-01-10 01:24:00 76 mm[Hg] [facility] Heart rate 2022-01-10 01:24:00 73 /min [facility] Respiratory rate 2022-01-10 01:24:00 16 /min [facility] Oxygen saturation in Arterial blood by Pulse oximetry 2022-01-10 01:24:00 96 /min [facility] Body weight 2022-01-09 21:39:00 104.327 kg [facility] BMI 2022-01-09 21:39:00 42.07 kg/m2 [facility] Systolic blood pressure 2021-12-14 07:22:00 121 mm[Hg] [facility] Diastolic blood pressure 2021-12-14 07:22:00 86 mm[Hg] [facility] Heart rate 2021-12-14 07:22:00 80 /min [facility] Respiratory rate 2021-12-14 07:22:00 17 /min [facility] Oxygen saturation in Arterial blood by Pulse oximetry 2021-12-14 07:22:00 96 /min [facility] Body temperature 2021-12-14 03:06:00 36.72 Latanya [facility] Body height 2021-12-14 03:06:00 157.5 cm [facility] Body weight 2021-12-14 03:06:00 95.255 kg [facility] BMI 2021-12-14 03:06:00 38.41 kg/m2 [facility] Systolic blood pressure 2021-11-12 04:15:00 112 mm[Hg] [facility] Diastolic blood pressure 2021-11-12 04:15:00 75 mm[Hg] [facility] Heart rate 2021-11-12 04:15:00 92 /min [facility] Body temperature 2021-11-12 04:15:00 36.44 Latanya [facility] Respiratory rate 2021-11-12 04:15:00 18 /min [facility] Oxygen saturation in Arterial blood by Pulse oximetry 2021-11-12 04:15:00 98 /min [facility] Body height 2021-11-12 00:41:00 157.5 cm [facility] Body weight 2021-11-12 00:41:00 95.255 kg [facility] BMI 2021-11-12 00:41:00 38.41 kg/m2 [facility] Systolic blood pressure 2021-09-12 01:31:00 142 mm[Hg] [facility] Diastolic blood pressure 2021-09-12 01:31:00 80 mm[Hg] [facility] Heart rate 2021-09-12 01:31:00 78 /min [facility] Body temperature 2021-09-12 01:31:00 36.72 Latanya [facility] Respiratory rate 2021-09-12 01:31:00 18 /min [facility] Body height 2021-09-12 01:31:00 157.5 cm [facility] Body weight 2021-09-12 01:31:00 99.791 kg [facility] BMI 2021-09-12 01:31:00 40.24 kg/m2 [facility] Oxygen saturation in Arterial blood by Pulse oximetry 2021-09-12 01:31:00 97 /min [facility] Systolic blood pressure 2021-08-15 08:20:00 120 mm[Hg] [facility] Diastolic blood pressure 2021-08-15 08:20:00 74 mm[Hg] [facility] Heart rate 2021-08-15 08:20:00 69 /min [facility] Respiratory rate 2021-08-15 08:20:00 20 /min [facility] Oxygen saturation in Arterial blood by Pulse oximetry 2021-08-15 08:20:00 96 /min [facility] Body temperature 2021-08-15 05:34:00 36.22 Latanya [facility] Body height 2021-08-15 05:34:00 157.5 cm [facility] Body weight 2021-08-15 05:34:00 99.791 kg [facility] BMI 2021-08-15 05:34:00 40.24 kg/m2 [facility] Systolic blood pressure 2021-05-28 10:00:00 122 mm[Hg] [facility] Diastolic blood pressure 2021-05-28 10:00:00 78 mm[Hg] [facility] Heart rate 2021-05-28 10:00:00 75 /min [facility] Respiratory rate 2021-05-28 10:00:00 20 /min [facility] Oxygen saturation in Arterial blood by Pulse oximetry 2021-05-28 10:00:00 99 /min [facility] Body temperature 2021-05-28 05:21:00 36.11 Latanya [facility] Body height 2021-05-28 05:21:00 157.5 cm [facility] Body weight 2021-05-28 05:21:00 99.791 kg [facility] BMI 2021-05-28 05:21:00 40.24 kg/m2 [facility] Systolic blood pressure 2021-04-08 21:55:00 110 mm[Hg] [facility] Diastolic blood pressure 2021-04-08 21:55:00 80 mm[Hg] [facility] Heart rate 2021-04-08 21:55:00 70 /min [facility] Body temperature 2021-04-08 21:55:00 36.28 Latanya [facility] Respiratory rate 2021-04-08 21:55:00 16 /min [facility] Oxygen saturation in Arterial blood by Pulse oximetry 2021-04-08 21:55:00 94 /min [facility] Body height 2021-04-08 03:00:00 157.5 cm [facility] Body weight 2021-04-08 03:00:00 105.688 kg [facility] BMI 2021-04-08 03:00:00 42.62 kg/m2 [facility] Systolic blood pressure 2021-01-12 09:00:00 147 mm[Hg] [facility] Diastolic blood pressure 2021-01-12 09:00:00 71 mm[Hg] [facility] Heart rate 2021-01-12 09:00:00 103 /min [facility] [facility] Respiratory rate 2021-01-12 09:00:00 18 /min [facility] Oxygen saturation in Arterial blood by Pulse oximetry 2021-01-12 09:00:00 97 /min [facility] Body temperature 2021-01-12 07:48:00 37.06 Latanya [facility] Body height 2021-01-12 07:48:00 157.5 cm [facility] Body weight 2021-01-12 07:48:00 102.513 kg [facility] BMI 2021-01-12 07:48:00 41.34 kg/m2 [facility] Systolic blood pressure 2020-12-11 01:30:00 136 mm[Hg] [facility] Diastolic blood pressure 2020-12-11 01:30:00 88 mm[Hg] [facility] Heart rate 2020-12-11 01:30:00 99 /min [facility] Respiratory rate 2020-12-11 01:30:00 28 /min [facility] Oxygen saturation in Arterial blood by Pulse oximetry 2020-12-11 01:30:00 97 /min [facility] Body temperature 2020-12-10 22:11:00 36.78 Latanya [facility] Body weight 2020-12-10 22:11:00 99.791 kg [facility] BMI 2020-12-10 22:11:00 40.24 kg/m2 [facility] Systolic blood pressure 2020-12-04 21:30:00 126 mm[Hg] [facility] Diastolic blood pressure 2020-12-04 21:30:00 79 mm[Hg] [facility] Heart rate 2020-12-04 21:30:00 91 /min [facility] Respiratory rate 2020-12-04 21:30:00 20 /min [facility] Oxygen saturation in Arterial blood by Pulse oximetry 2020-12-04 21:30:00 96 /min [facility] Body temperature 2020-12-04 19:49:00 37.06 Latanya [facility] Body height 2020-12-04 19:49:00 157.5 cm [facility] Body weight 2020-12-04 19:49:00 99.791 kg [facility] BMI 2020-12-04 19:49:00 40.24 kg/m2 [facility] Systolic blood pressure 2020-11-04 01:42:00 142 mm[Hg] [facility] Diastolic blood pressure 2020-11-04 01:42:00 100 mm[Hg] [facility] Heart rate 2020-11-04 01:42:00 109 /min [facility] Body temperature 2020-11-04 01:42:00 36.78 Latanya [facility] Respiratory rate 2020-11-04 01:42:00 20 /min [facility] Body weight 2020-11-04 01:42:00 99.791 kg [facility] BMI 2020-11-04 01:42:00 40.24 kg/m2 [facility] Oxygen saturation in Arterial blood by Pulse oximetry 2020-11-04 01:42:00 98 /min [facility] Systolic blood pressure 2020-09-17 15:52:00 138 mm[Hg] [facility] Diastolic blood pressure 2020-09-17 15:52:00 94 mm[Hg] [facility] Heart rate 2020-09-17 15:52:00 98 /min [facility] Body temperature 2020-09-17 15:52:00 36.94 Latanya [facility] Respiratory rate 2020-09-17 15:52:00 20 /min [facility] Body weight 2020-09-17 15:52:00 95.255 kg [facility] BMI 2020-09-17 15:52:00 38.41 kg/m2 [facility] Oxygen saturation in Arterial blood by Pulse oximetry 2020-09-17 15:52:00 97 /min [facility] Systolic blood pressure 2020-09-17 15:52:00 138 mm[Hg] [facility] Diastolic blood pressure 2020-09-17 15:52:00 94 mm[Hg] [facility] Heart rate 2020-09-17 15:52:00 98 /min [facility] Body temperature 2020-09-17 15:52:00 36.94 Latanya [facility] Respiratory rate 2020-09-17 15:52:00 20 /min [facility] Body weight 2020-09-17 15:52:00 95.255 kg [facility] BMI 2020-09-17 15:52:00 38.41 kg/m2 [facility] Oxygen saturation in Arterial blood by Pulse oximetry 2020-09-17 15:52:00 97 /min [facility] Systolic blood pressure 2020-09-07 06:35:00 123 mm[Hg] [facility] Diastolic blood pressure 2020-09-07 06:35:00 56 mm[Hg] [facility] Heart rate 2020-09-07 06:35:00 97 /min [facility] Body temperature 2020-09-07 06:35:00 36.28 Latanya [facility] Respiratory rate 2020-09-07 06:35:00 18 /min [facility] Body weight 2020-09-07 06:35:00 99.791 kg [facility] BMI 2020-09-07 06:35:00 40.24 kg/m2 [facility] Oxygen saturation in Arterial blood by Pulse oximetry 2020-09-07 06:35:00 98 /min [facility] Systolic blood pressure 2020-09-07 06:35:00 123 mm[Hg] [facility] Diastolic blood pressure 2020-09-07 06:35:00 56 mm[Hg] [facility] Heart rate 2020-09-07 06:35:00 97 /min [facility] Body temperature 2020-09-07 06:35:00 36.28 Latanya [facility] Respiratory rate 2020-09-07 06:35:00 18 /min [facility] Body weight 2020-09-07 06:35:00 99.791 kg [facility] BMI 2020-09-07 06:35:00 40.24 kg/m2 [facility] Oxygen saturation in Arterial blood by Pulse oximetry 2020-09-07 06:35:00 98 /min [facility] Systolic blood pressure 2020-08-28 09:00:00 132 mm[Hg] [facility] Diastolic blood pressure 2020-08-28 09:00:00 87 mm[Hg] [facility] Heart rate 2020-08-28 09:00:00 90 /min [facility] Respiratory rate 2020-08-28 09:00:00 20 /min [facility] Oxygen saturation in Arterial blood by Pulse oximetry 2020-08-28 09:00:00 97 /min [facility] Body temperature 2020-08-28 07:59:00 36.72 Latanya [facility] Body height 2020-08-28 07:59:00 157.5 cm [facility] Body weight 2020-08-28 07:59:00 99.791 kg [facility] BMI 2020-08-28 07:59:00 40.24 kg/m2 [facility] Systolic blood pressure 2020-08-28 09:00:00 132 mm[Hg] [facility] Diastolic blood pressure 2020-08-28 09:00:00 87 mm[Hg] [facility] Heart rate 2020-08-28 09:00:00 90 /min [facility] Respiratory rate 2020-08-28 09:00:00 20 /min [facility] Oxygen saturation in Arterial blood by Pulse oximetry 2020-08-28 09:00:00 97 /min [facility] Body temperature 2020-08-28 07:59:00 36.72 Latanya [facility] Body height 2020-08-28 07:59:00 157.5 cm [facility] Body weight 2020-08-28 07:59:00 99.791 kg [facility] BMI 2020-08-28 07:59:00 40.24 kg/m2 [facility] Systolic blood pressure 2020-08-14 19:40:00 135 mm[Hg] [facility] Diastolic blood pressure 2020-08-14 19:40:00 100 mm[Hg] [facility] Heart rate 2020-08-14 19:40:00 68 /min [facility] Body temperature 2020-08-14 19:40:00 37.11 Latanya [facility] Respiratory rate 2020-08-14 19:40:00 19 /min [facility] Oxygen saturation in Arterial blood by Pulse oximetry 2020-08-14 19:40:00 99 /min [facility] Body height 2020-08-14 17:41:00 157.5 cm [facility] Body weight 2020-08-14 17:41:00 99.791 kg [facility] BMI 2020-08-14 17:41:00 40.24 kg/m2 [facility] Systolic blood pressure 2020-08-14 19:40:00 135 mm[Hg] [facility] Diastolic blood pressure 2020-08-14 19:40:00 100 mm[Hg] [facility] Heart rate 2020-08-14 19:40:00 68 /min [facility] Body temperature 2020-08-14 19:40:00 37.11 Latanya [facility] Respiratory rate 2020-08-14 19:40:00 19 /min [facility] Oxygen saturation in Arterial blood by Pulse oximetry 2020-08-14 19:40:00 99 /min [facility] Body height 2020-08-14 17:41:00 157.5 cm [facility] Body weight 2020-08-14 17:41:00 99.791 kg [facility] BMI 2020-08-14 17:41:00 40.24 kg/m2 [facility] Systolic blood pressure 2020-08-11 04:00:00 106 mm[Hg] [facility] Diastolic blood pressure 2020-08-11 04:00:00 92 mm[Hg] [facility] Heart rate 2020-08-11 04:00:00 90 /min [facility] Respiratory rate 2020-08-11 04:00:00 16 /min [facility] Oxygen saturation in Arterial blood by Pulse oximetry 2020-08-11 04:00:00 99 /min [facility] Body temperature 2020-08-11 03:12:56 37.72 Latanya [facility] Body height 2020-08-11 00:19:00 157.5 cm [facility] Body weight 2020-08-11 00:19:00 99.791 kg [facility] BMI 2020-08-11 00:19:00 40.24 kg/m2 [facility] Systolic blood pressure 2020-08-11 04:00:00 106 mm[Hg] [facility] Diastolic blood pressure 2020-08-11 04:00:00 92 mm[Hg] [facility] Heart rate 2020-08-11 04:00:00 90 /min [facility] Respiratory rate 2020-08-11 04:00:00 16 /min [facility] Oxygen saturation in Arterial blood by Pulse oximetry 2020-08-11 04:00:00 99 /min [facility] Body temperature 2020-08-11 03:12:56 37.72 Latanya [facility] Body height 2020-08-11 00:19:00 157.5 cm [facility] Body weight 2020-08-11 00:19:00 99.791 kg [facility] BMI 2020-08-11 00:19:00 40.24 kg/m2 [facility] Systolic blood pressure 2020-08-07 13:16:00 100 mm[Hg] [facility] Diastolic blood pressure 2020-08-07 13:16:00 69 mm[Hg] [facility] Heart rate 2020-08-07 13:16:00 99 /min [facility] Body temperature 2020-08-07 13:16:00 36.67 Latanya [facility] Respiratory rate 2020-08-07 13:16:00 18 /min [facility] Body weight 2020-08-07 13:16:00 95.255 kg [facility] BMI 2020-08-07 13:16:00 38.41 kg/m2 [facility] Oxygen saturation in Arterial blood by Pulse oximetry 2020-08-07 13:16:00 99 /min [facility] Systolic blood pressure 2020-08-07 13:16:00 100 mm[Hg] [facility] Diastolic blood pressure 2020-08-07 13:16:00 69 mm[Hg] [facility] Heart rate 2020-08-07 13:16:00 99 /min [facility] Body temperature 2020-08-07 13:16:00 36.67 Latanya [facility] Respiratory rate 2020-08-07 13:16:00 18 /min [facility] Body weight 2020-08-07 13:16:00 95.255 kg [facility] BMI 2020-08-07 13:16:00 38.41 kg/m2 [facility] Oxygen saturation in Arterial blood by Pulse oximetry 2020-08-07 13:16:00 99 /min [facility] Systolic blood pressure 2020-07-01 02:00:00 136 mm[Hg] [facility] Diastolic blood pressure 2020-07-01 02:00:00 85 mm[Hg] [facility] Heart rate 2020-07-01 02:00:00 73 /min [facility] Respiratory rate 2020-07-01 02:00:00 20 /min [facility] Oxygen saturation in Arterial blood by Pulse oximetry 2020-07-01 02:00:00 97 /min [facility] Body temperature 2020-06-30 23:36:00 36.56 Latanya [facility] Body height 2020-06-30 23:36:00 157.5 cm [facility] Body weight 2020-06-30 23:36:00 95.255 kg [facility] BMI 2020-06-30 23:36:00 38.41 kg/m2 [facility] Systolic blood pressure 2020-07-01 02:00:00 136 mm[Hg] [facility] Diastolic blood pressure 2020-07-01 02:00:00 85 mm[Hg] [facility] Heart rate 2020-07-01 02:00:00 73 /min [facility] Respiratory rate 2020-07-01 02:00:00 20 /min [facility] Oxygen saturation in Arterial blood by Pulse oximetry 2020-07-01 02:00:00 97 /min [facility] Body temperature 2020-06-30 23:36:00 36.56 Latanya [facility] Body height 2020-06-30 23:36:00 157.5 cm [facility] Body weight 2020-06-30 23:36:00 95.255 kg [facility] BMI 2020-06-30 23:36:00 38.41 kg/m2 [facility] Systolic blood pressure 2020-06-28 21:57:00 151 mm[Hg] [facility] Diastolic blood pressure 2020-06-28 21:57:00 88 mm[Hg] [facility] Heart rate 2020-06-28 21:57:00 94 /min [facility] Body temperature 2020-06-28 21:57:00 37.78 Latnaya [facility] Respiratory rate 2020-06-28 21:57:00 16 /min [facility] Body height 2020-06-28 21:57:00 157.5 cm [facility] Body weight 2020-06-28 21:57:00 95.255 kg [facility] BMI 2020-06-28 21:57:00 38.41 kg/m2 [facility] Oxygen saturation in Arterial blood by Pulse oximetry 2020-06-28 21:57:00 96 /min [facility] Systolic blood pressure 2020-06-28 21:57:00 151 mm[Hg] [facility] Diastolic blood pressure 2020-06-28 21:57:00 88 mm[Hg] [facility] Heart rate 2020-06-28 21:57:00 94 /min [facility] Body temperature 2020-06-28 21:57:00 37.78 Latanya [facility] Respiratory rate 2020-06-28 21:57:00 16 /min [facility] Body height 2020-06-28 21:57:00 157.5 cm [facility] Body weight 2020-06-28 21:57:00 95.255 kg [facility] BMI 2020-06-28 21:57:00 38.41 kg/m2 [facility] Oxygen saturation in Arterial blood by Pulse oximetry 2020-06-28 21:57:00 96 /min [facility] Systolic blood pressure 2020-06-13 03:40:00 122 mm[Hg] [facility] Diastolic blood pressure 2020-06-13 03:40:00 78 mm[Hg] [facility] Heart rate 2020-06-13 03:40:00 90 /min [facility] Respiratory rate 2020-06-13 03:40:00 18 /min [facility] Oxygen saturation in Arterial blood by Pulse oximetry 2020-06-13 03:40:00 94 /min [facility] Body temperature 2020-06-12 23:39:00 37.22 Latanya [facility] Body weight 2020-06-12 23:39:00 97.07 kg [facility] BMI 2020-06-12 23:39:00 39.14 kg/m2 [facility] Systolic blood pressure 2020-06-13 03:40:00 122 mm[Hg] [facility] Diastolic blood pressure 2020-06-13 03:40:00 78 mm[Hg] [facility] Heart rate 2020-06-13 03:40:00 90 /min [facility] Respiratory rate 2020-06-13 03:40:00 18 /min [facility] Oxygen saturation in Arterial blood by Pulse oximetry 2020-06-13 03:40:00 94 /min [facility] Body temperature 2020-06-12 23:39:00 37.22 Latanya [facility] Body weight 2020-06-12 23:39:00 97.07 kg [facility] BMI 2020-06-12 23:39:00 39.14 kg/m2 [facility] Heart rate 2020-05-17 00:40:00 82 /min [facility] Respiratory rate 2020-05-17 00:40:00 18 /min [facility] Oxygen saturation in Arterial blood by Pulse oximetry 2020-05-17 00:40:00 95 /min [facility] Systolic blood pressure 2020-05-17 00:00:00 137 mm[Hg] [facility] Diastolic blood pressure 2020-05-17 00:00:00 93 mm[Hg] [facility] Body temperature 2020-05-16 23:17:00 37.61 Latanya [facility] Body weight 2020-05-16 23:17:00 97.07 kg [facility] BMI 2020-05-16 23:17:00 39.14 kg/m2 [facility] Heart rate 2020-05-17 00:40:00 82 /min [facility] Respiratory rate 2020-05-17 00:40:00 18 /min [facility] Oxygen saturation in Arterial blood by Pulse oximetry 2020-05-17 00:40:00 95 /min [facility] Systolic blood pressure 2020-05-17 00:00:00 137 mm[Hg] [facility] Diastolic blood pressure 2020-05-17 00:00:00 93 mm[Hg] [facility] Body temperature 2020-05-16 23:17:00 37.61 Latanya [facility] Body weight 2020-05-16 23:17:00 97.07 kg [facility] BMI 2020-05-16 23:17:00 39.14 kg/m2 [facility] Systolic blood pressure 2020-05-15 08:50:00 131 mm[Hg] [facility] Diastolic blood pressure 2020-05-15 08:50:00 80 mm[Hg] [facility] Heart rate 2020-05-15 08:50:00 70 /min [facility] Respiratory rate 2020-05-15 08:50:00 18 /min [facility] Oxygen saturation in Arterial blood by Pulse oximetry 2020-05-15 08:50:00 97 /min [facility] Body temperature 2020-05-15 05:29:00 36.44 Latanya [facility] Body height 2020-05-15 05:29:00 157.5 cm [facility] Body weight 2020-05-15 05:29:00 97.07 kg Simultaneous filing. User may not have seen previous data. [facility] BMI 2020-05-15 05:29:00 39.14 kg/m2 [facility] Systolic blood pressure 2020-05-15 08:50:00 131 mm[Hg] [facility] Diastolic blood pressure 2020-05-15 08:50:00 80 mm[Hg] [facility] Heart rate 2020-05-15 08:50:00 70 /min [facility] Respiratory rate 2020-05-15 08:50:00 18 /min [facility] Oxygen saturation in Arterial blood by Pulse oximetry 2020-05-15 08:50:00 97 /min [facility] Body temperature 2020-05-15 05:29:00 36.44 Latanya [facility] Body height 2020-05-15 05:29:00 157.5 cm [facility] Body weight 2020-05-15 05:29:00 97.07 kg Simultaneous filing. User may not have seen previous data. [facility] BMI 2020-05-15 05:29:00 39.14 kg/m2 [facility] Procedures Procedure Date / Time Performed Performing Clinician Source URINE DRUG (IMMUNOASSAY) - COMPREHENSIVE DRUG SCREEN 2024-07-19 06:11:00 Saleem Edward [facility] URINALYSIS 2024-07-19 06:11:00 Saleem Edward [facility] CT CHEST PULMONARY ANGIOGRAM 2024-07-19 05:46:40 Saleem Edward [facility] MAGNESIUM 2024-07-19 05:08:00 Saleem Edward [facility] TROPONIN I 2024-07-19 05:08:00 Saleem Edward Eleni [facility] COMP. METABOLIC PANEL ([id number]) 2024-07-19 05:08:00 Saleem Edward [facility] CBC WITH DIFF 2024-07-19 05:08:00 Saleem Edward [facility] INFLUENZA A/B RSV COVID NAAT 2024-07-19 05:08:00 Saleem Edward [facility] N-TERMINAL PRO-BNP 2024-07-19 05:08:00 Saleem Edward [facility] CT ABDOMEN PELVIS W CONTRAST 2024-07-04 05:47:25 Sandy Garcia [facility] POCT TEST 2024-07-04 05:33:00 Ross Garcia [facility] LIPASE 2024-07-04 03:23:00 Sandy Garcia [facility] COMP. METABOLIC PANEL ([id number]) 2024-07-04 03:23:00 [facility] 2024-07-04 03:23:00 Jose [facility] URINALYSIS 2024-07-04 03:23:00 Sandy Garcia [facility] CT ABDOMEN PELVIS W CONTRAST 2024-06-15 05:33:59 [facility] 2024-06-15 04:18:00 Sandy Garcia [facility] LIPASE 2024-06-15 04:14:00 Sandy Garcia [facility] TEST, SERUM 2024-06-15 04:14:00 Laney Garcia [facility] TROPONIN I 2024-06-15 04:14:00 Jose [facility] COMP. METABOLIC PANEL ([id number]) 2024-06-15 04:14:00 [facility] WITH DIFF 2024-06-15 04:14:00 Jose [facility] TROPONIN I 2024-06-07 07:19:00 Olivia Garcia [facility] XR CHEST 1 VW 2024-06-07 05:38:37 Olivia Garcia [facility] POCT TEST 2024-06-07 05:19:00 Olivia Garcia [facility] URINE DRUG (IMMUNOASSAY) - COMPREHENSIVE DRUG SCREEN 2024-06-07 05:18:00 Olivia Garcia [facility] TROPONIN I 2024-06-07 04:10:00 Olivia Garcia [facility] COMP. METABOLIC PANEL ([id number]) 2024-06-07 04:10:00 Olivia Garcia [facility] CBC WITH DIFF 2024-06-07 04:10:00 Olivia Garcia [facility] CT HEAD WO CONTRAST 2024-05-19 18:22:43 Annalise Wright [facility] XR ELBOW <3 VW RIGHT 2024-05-18 02:32:12 Alesha Barrera [facility] XR FOREARM 2 VW RIGHT 2024-05-18 02:32:12 Alesha Moralez [facility] XR HAND 3+ VW RIGHT 2024-05-18 02:32:12 lAesha Casanova [facility] CT CERVICAL SPINE WO CONTRAST 2024-05-18 02:11:45 Alesha Roy [facility] CT MAXILLOFACIAL/MANDIBLE WO CONTRAST 2024-05-18 02:11:45 Alesha Roy [facility] POCT TEST 2024-05-08 02:00:00 Saleem Edward [facility] LIPASE 2024-05-08 00:31:00 Saleem Edward [facility] MAGNESIUM 2024-05-08 00:31:00 Saleem Edward [facility] TROPONIN I 2024-05-08 00:31:00 Saleem Edward [facility] COMP. METABOLIC PANEL ([id number]) 2024-05-08 00:31:00 Saleem Edward [facility] CBC WITH DIFF 2024-05-08 00:31:00 Saleem Edward [facility] URINALYSIS 2024-05-08 00:31:00 Saleem Edward [facility] CT ABDOMEN PELVIS WO CONTRAST 2024-04-08 23:45:15 Leigh Rojo [facility] POCT TEST 2024-04-08 23:01:00 Judy Rojo [facility] LIPASE 2024-04-08 22:47:00 Leigh Rojo [facility] COMP. METABOLIC PANEL ([id number]) 2024-04-08 22:47:00 Leigh Rojo [facility] CBC WITH DIFF 2024-04-08 22:47:00 Leigh Rojo [facility] URINALYSIS 2024-04-08 22:47:00 Leigh Rojo [facility] CT ABDOMEN PELVIS W CONTRAST 2023-10-11 04:08:24 Olivia Garcia [facility] POCT TEST 2023-10-11 03:40:00 Olivia Garcia [facility] LIPASE 2023-10-11 03:25[facility] ([id number][facility] 2023-10-11 03:25:00 Olivia Garcia [facility] CBC WITH DIFF 2023-10-11 03:25:00 Olivia Garcia [facility] URINALYSIS 2023-10-11 03:25:00 Olivia Garcia [facility] XR KUB 2023-07-02 03:34:07 Roberto Richards [facility] POCT TEST 2023-07-02 02:30:00 Alberta Richards [facility] LIPASE 2023-07-02 02:05:00 Roberto Richards [facility] COMP. METABOLIC PANEL ([id number]) 2023-07-02 02:05:00 Roberto Richards [facility] CBC WITH DIFF 2023-07-02 02:05:00 Roberto Richards [facility] URINALYSIS 2023-07-02 02:05:00 Roberto Richards [facility] URINE DRUG (IMMUNOASSAY) - COMPREHENSIVE DRUG SCREEN W/O REFLEX 2023-07-02 02:05:00 Roberto Richards [facility] CONSENT/REFUSAL FOR DIAGNOSIS AND TREATMENT 2023-07-02 01:43:05 Doctor Unassigned, [place] [facility] LIPASE 2023-05-09 22:47:00 Narayan Narvaez [facility] [place] COMP. METABOLIC PANEL ([id number]) 2023-05-09 22:47:00 Narayan Narvaez [facility] CBC WITH DIFF 2023-05-09 22:47:00 Narayan Narvaez [facility] CONSENT/REFUSAL FOR DIAGNOSIS AND TREATMENT 2023-05-09 22:32:48 Doctor Unassigned, [place] [facility] CT ABDOMEN PELVIS W CONTRAST 2023-04-30 23:47:56 Narayan Narvaez [facility] COMP. METABOLIC PANEL ([id number]) 2023-04-30 23:08:00 Narayan Narvaez [facility] CBC WITH DIFF 2023-04-30 23:08:00 Narayan Narvaez [facility] POCT TEST 2023-04-30 22:59:00 Jaquan Narvaez [facility] URINALYSIS 2023-04-30 22:57[facility] TREATMENT 2023-04-30 22:14:38 Doctor Unassigned, [place] [facility] XR ABDOMEN ACUTE SERIES 2023-04-17 02:13:44 Do minal Richards [facility] POCT TEST 2023-04-17 02:11:00 Alberta Richards [facility] LIPASE 2023-04-17 02:04:00 Roberto Richards [facility] TROPONIN I 2023-04-17 02:04:00 Roberto Richards [facility] COMP. METABOLIC PANEL ([id number]) 2023-04-17 02:04:00 Roberto Richards [facility] CBC WITH DIFF 2023-04-17 02:04:00 Roberto Richards [facility] PROTHROMBIN TIME / INR 2023-04-17 02:04:00 Richard Richards [facility] ACTIVATED PARTIAL THRMPLAS MARCIO 2023-04-17 02:04:00 Roberto Richards [facility] URINALYSIS 2023-04-17 02:04:00 Roberto Richards [facility] N-TERMINAL PRO-BNP 2023-04-17 02:04:00 Roberto Richards [facility] URINE DRUG (IMMUNOASSAY) - COMPREHENSIVE DRUG SCREEN W/O REFLEX 2023-04-17 02:04:00 Roberto Richards [facility] CONSENT/REFUSAL FOR DIAGNOSIS AND TREATMENT 2023-04-17 01:22:36 Doctor Unassigned, Veyo [facility] URINALYSIS 2023-04-09 01:02:00 Saleem Edward [facility] LIPASE 2023-04-08 23:15:00 Saleem Edwarde [facility] MAGNESIUM 2023-04-08 23:15:00 Saleem Edward [facility] TROPONIN I 2023-04-08 23:15:00 Saleem Edward [facility] COMP. METABOLIC PANEL ([id number]) 2023-04-08 23:15:00 Saleem Edward Eleni [facility] CBC WITH DIFF 2023-04-08 23:15:00 Saleem Edward [facility] CONSENT/REFUSAL FOR DIAGNOSIS AND TREATMENT 2023-04-08 21:57:42 Doctor Unassigned, Veyo [facility] CT ABDOMEN PELVIS W CONTRAST 2023-03-10 03:38:58 Roberto Richards [facility] POCT TEST 2023-03-10 02:51:00 Alberta Richards [facility] URINALYSIS 2023-03-10 01:49:00 Roberto Richards [facility] LIPASE 2023-03-10 01:46:00 Roberto Richards [facility] COMP. METABOLIC PANEL ([id number]) 2023-03-10 01:46:00 Roberto Richards [facility] CBC WITH DIFF 2023-03-10 01:46:00 Roberto Richards [facility] CONSENT/REFUSAL FOR DIAGNOSIS AND TREATMENT 2023-03-10 01:36:24 Doctor Unassigned, Veyo [facility] CONSENT/REFUSAL FOR DIAGNOSIS AND TREATMENT 2023-03-10 01:14:40 Doctor Unassigned, Veyo [facility] CT ABDOMEN PELVIS W CONTRAST 2023-03-02 05:16:35 Olivia Garcia [facility] POCT TEST 2023-03-02 03:26:00 Olivia Garcia [facility] LIPASE 2023-03-02 03:23:00 Olivia Garcia [facility] COMP. METABOLIC PANEL ([id number]) 2023-03-02 03:23:00 Olivia Garcia [facility] CBC WITH DIFF 2023-03-02 03:23:00 Olivia Garcia [facility] URINALYSIS 2023-03-02 03:23:00 Olivia Garcia [facility] CONSENT/REFUSAL FOR DIAGNOSIS AND TREATMENT 2023-03-02 00:22:44 Doctor Unassigned, Veyo [facility] CONSENT/REFUSAL FOR DIAGNOSIS AND TREATMENT 2023-02-18 03:44:46 Doctor Unassigned, Veyo [facility] LIPASE 2023-02-17 09:28:[address] [facility] HEPATIC FUNCTION PANEL ([id number]) (ALB,T.PRO,BILI T,BU/BC,ALT,AST,ALK PHOS) 2023-02-17 09:28:00 [facility] BASIC METABOLIC PANEL (NA, K, CL, CO2, GLUCOSE, BUN, CREATININE, CA) 2023-02-17 09:28:00 [facility] 2023-02-17 09:28:00 Jesús Montero [facility] LIPASE 2023-02-16 18:24:00 [facility]EL ([id number]) (ALB,T.PRO,BILI T,BU/BC,ALT,AST,ALK PHOS) 2023-02-16 18:24:00 [facility] BASIC METABOLIC PANEL (NA, K, CL, CO2, GLUCOSE, BUN, CREATININE, CA) 2023-02-16 18:24:00 [facility] CBC WITH DIFF 2023-02-16 18:23:00 Kylah Jesús [facility] CT ABDOMEN PELVIS W CONTRAST 2023-02-15 23:29:00 Leeanne Wise [facility] LIPASE 2023-02-15 21:45:00 Leeanne Wise [facility] COMP. METABOLIC PANEL ([id number]) 2023-02-15 21:45:00 Leeanne Wise [facility] CBC WITH DIFF 2023-02-15 21:45:00 Leeanne Wise [facility] D-DIMER 2023-02-15 19:55:00 Leeanne Wise [facility] URINALYSIS 2023-02-15 19:50:00 Leeanne Wise [facility] RAPID INFLUENZA A/B 2023-02-15 19:50:00 Leeanne Wise [facility] COVID-19 (ID NOW RAPID TESTING) 2023-02-15 19:50:00 Leeanne Wise [facility] XR CHEST 1 VW 2023-02-15 19:38:00 Leeanne Wise [facility] ASSIGNMENT OF BENEFITS 2023-02-15 19:26:58 Docto r Unassigned, Veyo [facility] HB ECG ROUTINE & RHYTHM STRIP 2023-02-15 19:07:40 Leeanne Wise [facility] NOTICE OF PRIVACY PRACTICES 2023-02-15 18:24:07 Doctor Unassigned, Veyo [facility] CONSENT/REFUSAL FOR DIAGNOSIS AND TREATMENT 2023-02-15 18:23:04 Doctor Unassigned, Veyo [facility] TROPONIN I 2022-01-10 00:32:00 Melida Longoria [facility] TROPONIN I 2022-01-09 22:17:00 Melida Longoria [facility] BASIC METABOLIC PANEL (NA, K, CL, CO2, GLUCOSE, BUN, CREATININE, CA) 2022-01-09 22:17:00 Melida Longoria [facility] CBC WITH DIFF 2022-01-09 22:17:00 Melida Longoria [facility] N-TERMINAL PRO-BNP 2022-01-09 22:17:00 Melida Longoria [facility] XR CHEST 1 VW 2022-01-09 22:11:00 Melida Longoria [facility] CONSENT/REFUSAL FOR DIAGNOSIS AND TREATMENT 2022-01-09 21:34:15 Doctor Unassigned, Veyo [facility] TROPONIN I 2021-12-14 05:39:00 Wil Mcqueen [facility] XR CHEST 1 VW 2021-12-14 04:39:00 Wil Mcqueen [facility] POCT TEST 2021-12-14 04:20:00 Wil Mcqueen [facility] URINALYSIS 2021-12-14 03:57:00 Wil Mcqueen [facility] LIPASE 2021-12-14 03:43:00 Wil Mcqueen [facility] TROPONIN I 2021-12-14 03:43:00 Wil Mcqueen [facility] FREE T4 2021-12-14 03:43:00 Wil Mcqueen [facility] THYROID STIMULATING HORMONE 2021-12-14 03:43:00 Wil Mcqueen [facility] COMP. METABOLIC PANEL ([id number]) 2021-12-14 03:43:00 Wil Mcqueen [facility] CBC WITH DIFF 2021-12-14 03:43:00 Wil Mcqueen [facility] FREE T3 2021-12-14 03:43:00 Wil Mcqueen [facility] CONSENT/REFUSAL FOR DIAGNOSIS AND TREATMENT 2021-12-14 02:58:21 Doctor Unassigned, Veyo [facility] TROPONIN I 2021-11-12 03:04:00 Dee Wang [facility] POCT TEST 2021-11-12 02:56:00 Tra Wang [facility] URINE DRUG (IMMUNOASSAY) - COMPREHENSIVE DRUG SCREEN 2021-11-12 02:30:00 Dee Wang [facility] URINALYSIS 2021-11-12 02:30:00 Dee Wang [facility] XR CHEST 2 VW 2021-11-12 01:45:03 Dee Wang [facility] LIPASE 2021-11-12 01:34:00 Dee Wang [facility] TROPONIN I 2021-11-12 01:34:00 Dee Wang [facility] COMP. METABOLIC PANEL ([id number]) 2021-11-12 01:34:00 Dee Wang [facility] CBC WITH DIFF 2021-11-12 01:34:00 Dee Wang [facility] N-TERMINAL PRO-BNP 2021-11-12 01:34:00 Mckinley Wang [facility] CONSENT/REFUSAL FOR DIAGNOSIS AND TREATMENT 2021-11-12 00:36:34 Doctor Unassigned, Veyo [facility] CT ABDOMEN PELVIS W CONTRAST 2021-09-12 02:49:43 Dee Wang [facility] COVID-19 (ID NOW RAPID TESTING) 2021-09-12 02:23:00 Dee Wang [facility] POCT TEST 2021-09-12 02:21:00 Tra Wang [facility] POCT TEST 2021-09-12 01:45:00 Olivia Garcia [facility] URINALYSIS 2021-09-12 01:43:00 Olivia Garcia [facility] LIPASE 2021-09-12 01:40:00 Olivia Garcia [facility] COMP. METABOLIC PANEL ([id number]) 2021-09-12 01:40:00 Olivia Garcia [facility] CBC WITH DIFF 2021-09-12 01:40:00 Olivia Garcia [facility] CONSENT/REFUSAL FOR DIAGNOSIS AND TREATMENT 2021-09-12 01:26:55 Doctor Unassigned, Veyo [facility] XR LUMBAR SPINE 1 VW 2021-08-15 07:03:00 Angeles Garcia i [facility] URINALYSIS 2021-08-15 06:35:00 Olivia Garcia [facility] POCT TEST 2021-08-15 06:35:00 Olivia Garcia [facility] NOTICE OF PRIVACY PRACTICES 2021-08-15 06:01:56 Doctor Unassigned, Veyo [facility] CONSENT/REFUSAL FOR DIAGNOSIS AND TREATMENT 2021-08-15 05:25:54 Doctor Unassigned, Veyo [facility] TROPONIN I 2021-05-28 07:50:00 Cem Choi [facility] D-DIMER 2021-05-28 07:05:00 Cem Choi [facility] XR CHEST 2 VW 2021-05-28 05:46:00 Cem Choi [facility] POCT TEST 2021-05-28 05:32:00 Cem Choi [facility] LIPASE 2021-05-28 05:29:00 Cem Choi [facility] TROPONIN I 2021-05-28 05:29:00 Cem Choi [facility] COMP. METABOLIC PANEL ([id number]) 2021-05-28 05:29:00 Cem Choi [facility] CBC WITH DIFF 2021-05-28 05:29:00 Cem Choi [facility] N-TERMINAL PRO-BNP 2021-05-28 05:29:00 Cem Choi [facility] COVID-19 (ID NOW RAPID TESTING) 2021-05-28 05:29:00 Cem Choi [facility] TROPONIN I 2021-04-08 10:01:00 Brittni Romero [facility] BASIC METABOLIC PANEL (NA, K, CL, CO2, GLUCOSE, BUN, CREATININE, CA) 2021-04-08 10:01:00 Brittni Romero [facility] CBC WITH DIFF 2021-04-08 10:01:00 Brittni Romero [facility] TROPONIN I 2021-04-08 04:12:00 Brittni Romero [facility] XR CHEST 1 VW 2021-04-07 22:33:33 Roberto Richards [facility] LIPASE 2021-04-07 21:52:00 Roberto Richards [facility] MAGNESIUM 2021-04-07 21:52:00 Brittni Romero [facility] TROPONIN I 2021-04-07 21:52:00 Roberto Richards [facility] THYROID STIMULATING HORMONE 2021-04-07 21:52:00 Brittni Romero [facility] COMP. METABOLIC PANEL ([id number]) 2021-04-07 21:52:00 Roberto Richards [facility] LIPID PANEL ([id number])(TOTAL CHOLESTEROL, TRIGLYCERIDES, HDL) 2021-04-07 21:52:00 Brittni Romero [facility] CBC WITH DIFF 2021-04-07 21:52:00 Roberto Richards [facility] GLYCOSYLATED HEMOGLOBIN (A1C) 2021-04-07 21:52:00 Brittni Romero [facility] PROTHROMBIN TIME / INR 2021-04-07 21:52:00 Richard Richards [facility] ACTIVATED PARTIAL THRMPLAS MARCIO 2021-04-07 21:52[facility]00 [facility] 2021-04-07 21:52:00 [facility] (ID NOW RAPID TESTING) 2021-04-07 21:51:00 Roberto Richards [facility] HB ECG ROUTINE & RHYTHM STRIP 2021-04-07 21:38:41 [facility]US[facility] FOR [facility]AGNOSIS AND TREATMENT 2021-04-07 21:17:47 Doctor Unassigned, Veyo [facility] CT ABDOMEN PELVIS WO CONTRAST 2021-01-12 08:10:17 Narayan Narvaez [facility] POCT TEST 2021-01-12 08:02:00 Jaquan Narvaez [facility] URINALYSIS 2021-01-12 07:58:00 Narayan Narvaez [facility] COMP. METABOLIC PANEL ([id number]) 2021-01-12 07:56:00 Narayan Narvaez [facility] CBC WITH DIFF 2021-01-12 07:56:00 Narayan Narvaez [facility] TROPONIN I 2020-12-11 00:47:00 Mo [facility] XR CHEST 1 VW 2020-12-10 22:40:57 Bal Hassan [facility] POCT TEST 2020-12-10 22:32:00 Suzanna Hassan [facility] URINALYSIS 2020-12-10 22:30:00 [facility] 2020-12-10 22:24:00 Mo [facility] TROPONIN I 2020-12-10 22:24:00 Mo [facility] HEPATIC FUNCTION PANEL ([id number]) (ALB,T.PRO,BILI T,BU/BC,ALT,AST,ALK PHOS) 2020-12-10 22:24:[address] [facility] BASIC METABOLIC PANEL (NA, K, CL, CO2, GLUCOSE, BUN, CREATININE, CA) 2020-12-10 22:24:[address] [facility] CBC WITH DIFF 2020-12-10 22:24:00 Bal Hassan [facility] D-DIMER 2020-12-10 22:24:00 Mo [facility] N-TERMINAL PRO-BNP 2020-12-10 22:24:00 Mirtha Hassan [facility] POCT TEST 2020-12-04 21:18:00 Tremaine Becerra [facility] URINALYSIS 2020-12-04 21:17:00 Tremaine Becerra [facility] LIPASE 2020-12-04 20:20:00 Hernan [facility] TROPONIN I 2020-12-04 20:20:00 Hern[facility] HEPATIC FUNCTION PANEL ([id number]) (ALB,T.PRO,BILI T,BU/BC,ALT,AST,ALK PHOS) 2020-12-04 20:20:00 [facility]IC PANEL (NA, K, CL, CO2, GLUCOSE, BUN, CREATININE, CA) 2020-12-04 20:20:00 [facility]FF 2020-12-04 20:20:00 Tremaine Becerra [facility] XR CHEST 1 VW 2020-12-04 20:16:54 [facility] XR ANKLE 3+ VW LEFT 2020-12-04 20:16:54 Hernan [facility] CONSENT/REFUSAL FOR DIAGNOSIS AND TREATMENT 2020-12-04 19:43:45 Doctor Unassigned, Veyo [facility] XR CHEST 1 VW 2020-11-04 02:24:02 Olivia Garcia [facility] URINE DRUG (IMMUNOASSAY) - 4 ER PANEL 2020-11-04 02:19:00 Olivia Garcia [facility] URINALYSIS 2020-11-04 02:19:00 Olivia Garcia [facility] LIPASE 2020-11-04 02:16:00 Jose Marachelle [facility] TROPONIN I 2020-11-04 02:16:00 Olivia Garcia [facility] COMP. METABOLIC PANEL ([id number]) 2020-11-04 02:16:00 Olivia Garcia [facility] CBC WITH DIFF 2020-11-04 02:16:00 Olivia Garcia [facility] PROTHROMBIN TIME / INR 2020-11-04 02:16:00 Lucia Garcia [facility] ACTIVATED PARTIAL THRMPLAS MARCIO 2020-11-04 02:16:00 Olivia Garcia [facility] CONSENT/REFUSAL FOR DIAGNOSIS AND TREATMENT 2020-11-04 01:11:16 Doctor Unassigned, Veyo [facility] XR CHEST 1 VW 2020-09-17 17:32:21 Leeanne Wise [facility] RAPID STREP SCREEN FOR GROUP A 2020-09-17 16:31:00 Leeanne Wise [facility] COVID-19 (ID NOW RAPID TESTING) 2020-09-17 16:31:00 Leeanne Wise [facility] NOTICE OF PRIVACY PRACTICES 2020-09-17 15:47:38 Doctor Unassigned, Veyo [facility] CONSENT/REFUSAL FOR DIAGNOSIS AND TREATMENT 2020-09-17 15:47:07 Doctor Unassigned, Veyo [facility] XR FOREARM 2 VW LEFT 2020-09-07 06:59:53 Saleem Edward [facility] XR HAND 3+ VW LEFT 2020-09-07 06:59:53 Saleem Edward [facility] NOTICE OF PRIVACY PRACTICES 2020-09-07 06:06:09 Doctor Unassigned, Veyo [facility] CONSENT/REFUSAL FOR DIAGNOSIS AND TREATMENT 2020-09-07 06:03:10 Doctor Unassigned, Veyo [facility] CT ABDOMEN PELVIS W CONTRAST 2020-08-28 09:16:08 Olivia Garcia [facility] POCT TEST 2020-08-28 08:45:00 Olivia Garcia [facility] URINALYSIS 2020-08-28 08:43:00 Olivia Garcia [facility] LIPASE 2020-08-28 08:09:00 [facility] METABOLIC PANEL ([id number]) 2020-08-28 08:09:00 Olivia Garcia [facility] CBC WITH DIFF 2020-08-28 08:09:00 [facility] 2020-08-14 18:10:03 Best Taylor [facility] LIPASE 2020-08-14 17:58:00 [facility] TROPONIN I 2020-08-14 17:58:00 Best Taylor [facility] COMP. METABOLIC PANEL ([id number]) 2020-08-14 17:58:00 Best Taylor [facility] CBC WITH DIFF 2020-08-14 17:58:00 Best Taylor [facility] URINALYSIS 2020-08-14 17:58:00 Best [facility] LACTIC ACID WHOLE BLOOD 2020-08-14 17:58:00 Sophie Taylor [facility] ADC / LCC - DRUG SCREEN TRIAGE 2020-08-14 17:58:00 Best Taylor [facility] CONSENT/REFUSAL FOR DIAGNOSIS AND TREATMENT 2020-08-14 17:33:16 Doctor Unassigned, Veyo [facility] CT ABDOMEN PELVIS WO CONTRAST 2020-08-11 04:11:07 Best Taylor [facility] XR CHEST 1 VW 2020-08-11 03:56:48 Best Taylor [facility] POCT TEST 2020-08-11 03:10:00 Best Taylor [facility] BLOOD CULTURE SCREEN 2020-08-11 02:01:00 Best Taylor [facility] BLOOD CULTURE SCREEN 2020-08-11 01:45:00 Best Taylor [facility] LIPASE 2020-08-11 01:45:00 Best [facility] TROPONIN I 2020-08-11 01:45:00 Best Taylor [facility] HEPATIC FUNCTION PANEL ([id number]) (ALB,T.PRO,BILI T,BU/BC,ALT,AST,ALK PHOS) 2020-08-11 01:45:00 Best Taylor [facility] BASIC METABOLIC PANEL (NA, K, CL, CO2, GLUCOSE, BUN, CREATININE, CA) 2020-08-11 01:45:00 Best Taylor [facility] CBC WITH DIFF 2020-08-11 01:45:00 Best Taylor [facility] URINALYSIS 2020-08-11 01:45:00 Claudia, Katye R [facility] LACTIC ACID WHOLE BLOOD 2020-08-11 01:45:00 Sophie Taylor [facility] COVID-19 (ID NOW RAPID TESTING) 2020-08-11 01:45:00 Best Taylor [facility] CONSENT/REFUSAL FOR DIAGNOSIS AND TREATMENT 2020-08-11 00:12:54 Doctor Unassigned, Veyo [facility] XR FOREARM 2 VW LEFT 2020-08-07 14:03:06 Unique Richards [facility] COVID-19 (ID NOW RAPID TESTING) 2020-08-07 13:35:00 Roberto Richards [facility] NOTICE OF PRIVACY PRACTICES 2020-08-07 13:13:25 Doctor Unassigned, Veyo [facility] CONSENT/REFUSAL FOR DIAGNOSIS AND TREATMENT 2020-08-07 13:11:06 Doctor Unassigned, Veyo [facility] CONSENT/REFUSAL FOR DIAGNOSIS AND TREATMENT 2020-08-07 13:10:57 Doctor Unassigned, Veyo [facility] TROPONIN I 2020-07-01 02:03:00 Abdias Robertson [facility] POCT TEST 2020-07-01 00:51:00 Jessica [facility] URINALYSIS 2020-07-01 00:48:00 [facility] CBC WITH DIFF 2020-07-01 00:12:00 Abdias Robertson [facility] EXTRA TUBE LT. BLUE 2020-07-01 00:12:00 [facility] LIPASE 2020-07-01 00:09:00 Abdias Robertson [facility] TROPONIN I 2020-07-01 00:09:00 [facility] BASIC METABOLIC PANEL (NA, K, CL, CO2, GLUCOSE, BUN, CREATININE, CA) 2020-07-01 00:09:00 [facility] ADC,CLC OR LCC ONLY - INFLUENZA A & B DIRECT ANTIGEN 2020-07-01 00:09:00 Jessica [facility] N-TERMINAL PRO-BNP 2020-07-01 00:09:00 Abdias Robertson [facility] XR CHEST 1 VW 2020-07-01 00:07:07 [facility] PRIVAC[facility] PRACTICES 2020-06-30 23:27:46 Doctor Unassigned, Veyo [facility] CT CERVICAL SPINE WO CONTRAST 2020-06-28 23:12:00 Narayan Narvaez [facility] CONSENT/REFUSAL FOR DIAGNOSIS AND TREATMENT 2020-06-28 21:52:44 Doctor Unassigned, Veyo [facility] POCT TEST 2020-06-13 01:50:00 Leeanne Wise [facility] XR CHEST 1 VW 2020-06-13 01:18:17 Leeanne Wise [facility] URINALYSIS 2020-06-13 00:34:00 Mehnaz [facility] Kristin [facility] COVID-19 (ID NOW RAPID TESTING) 2020-06-13 00:34:00 Leeanne Wise [facility] LIPASE 2020-06-13 00:33:00 Leeanne Wise [facility] TROPONIN I 2020-06-13 00:33:00 Mehnaz Leeanne G [facility] HEPATIC FUNCTION PANEL ([id number]) (ALB,T.PRO,BILI T,BU/BC,ALT,AST,ALK PHOS) 2020-06-13 00:33:00 Leeanne Wsie [facility] BASIC METABOLIC PANEL (NA, K, CL, CO2, GLUCOSE, BUN, CREATININE, CA) 2020-06-13 00:33:00 Leeanne Wise [facility] CBC WITH DIFF 2020-06-13 00:33:00 Leeanne Wise [facility] D-DIMER 2020-06-13 00:33:00 Leeanne Wise [facility] CONSENT/REFUSAL FOR DIAGNOSIS AND TREATMENT 2020-06-12 23:27:48 Doctor Unassigned, Veyo [facility] COVID-19 (ID NOW RAPID TESTING) 2020-05-16 23:50:00 Bushra Rios [facility] LIPASE 2020-05-16 23:21:00 [facility] ([id number]) (ALB,T.PRO,BILI T,BU/BC,ALT,AST,ALK PHOS) 2020-05-16 23:21:00 Bushra Rios [facility] BASIC METABOLIC PANEL (NA, K, CL, CO2, GLUCOSE, BUN, CREATININE, CA) 2020-05-16 23:21:00 Bushra Rios [facility] CBC WITH DIFF 2020-05-16 23:21:00 Bush[facility] AC[facility]IN[facility] 2020-05-15 07:42:00 Roberto Richards [facility] CT ABDOMEN PELVIS W CONTRAST 2020-05-15 06:56:53 Roberto Richards [facility] CT HEAD WO CONTRAST 2020-05-15 06:56:27 Alberta Richards [facility] POCT TEST 2020-05-15 05:53:00 Alberta Richards [facility] LIPASE 2020-05-15 05:52:00 Roberto Richards [facility] HEPATIC FUNCTION PANEL ([id number]) (ALB,T.PRO,BILI T,BU/BC,ALT,AST,ALK PHOS) 2020-05-15 05:52:00 Roberto Richards [facility] BASIC METABOLIC PANEL (NA, K, CL, CO2, GLUCOSE, BUN, CREATININE, CA) 2020-05-15 05:52:00 Roberto Richards [facility] ETHANOL 2020-05-15 05:52:00 Roberto Richards [facility] CBC WITH DIFF 2020-05-15 05:52:00 Roberto Richards [facility] PROTHROMBIN TIME / INR 2020-05-15 05:52:00 Richard Richards [facility] ACTIVATED PARTIAL THRMPLAS MARCIO 2020-05-15 05:52:00 Roberto Richards [facility] URINALYSIS 2020-05-15 05:52:00 Roberto Richards [facility] ADC / LCC - DRUG SCREEN TRIAGE 2020-05-15 05:52:00 Roberto Richards [facility] NOTICE OF PRIVACY PRACTICES 2020-05-15 05:12:38 Doctor Unassigned, Veyo [facility] CONSENT/REFUSAL FOR DIAGNOSIS AND TREATMENT 2020-05-15 05:12:26 Doctor Unassigned, Veyo [facility] Encounters Start Date/Time End Date/Time Encounter Type Admission Type Attending [facility] Care Department Encounter ID Source 2024-09-15 11:15:00 2024-09-15 11:15:00 Outpatient KELLEE DORMAN [id number] [facility] 2024-09-15 10:45:00 2024-09-15 10:45:00 Outpatient KELLEE DORMAN [id number] [facility] 2024-09-15 10:15:00 2024-09-15 10:15:00 Outpatient KELLEE DORMAN [id number] [facility] 2024-09-01 00:00:00 2024-09-01 00:00:00 Outpatient JOANNE MONTES [id number] [facility] 2024-08-27 00:00:00 2024-08-27 00:00:00 Outpatient CONRADO SMITH [id number] [facility] 2024-08-20 16:45:00 2024-08-20 16:45:00 Outpatient JÚNIOR FARRELL [id number] [facility] 2024-08-18 10:00:00 2024-08-18 10:00:00 Outpatient JOANNE MONTES [id number] [facility] 2024-08-05 15:30:00 2024-08-05 15:30:00 Outpatient CONRADO SMITH [id number] [facility] 2024-08-03 00:00:00 2024-08-03 00:00:00 Outpatient JOANNE MONTES [id number] [facility] 2024-07-18 22:48:00 2024-07-19 01:24:00 Emergency Saleem DSOUZA K [facility] [id number] [facility] 2024-07-18 22:48:00 2024-07-19 01:24:00 Emergency Saleem Edward [facility] ..[id number] [facility] 2024-07-15 00:00:00 2024-07-15 00:00:00 Outpatient JYOTI, JOANNE KELLEE DORMAN [id number] [facility] 2024-07-10 00:00:00 2024-07-10 00:00:00 Outpatient MARLINL, JOANNE DORMAN [id number] [facility] 2024-07-09 00:00:00 2024-07-09 00:00:00 Outpatient RADIOLOGY, DEPT KELLEE DORMAN [id number] [facility] 2024-07-09 00:00:00 2024-07-09 00:00:00 Outpatient RADIOLOGY, DEPT KELLEE DORMAN [id number] [facility] 2024-07-07 00:00:00 2024-07-07 00:00:00 Outpatient MD KELLEE CHOI [id number] [facility] 2024-07-06 07:00:00 2024-07-06 07:00:00 Outpatient KELLEE DORMAN [id number] [facility] 2024-07-06 00:00:00 2024-07-06 00:00:00 Outpatient GISELLE OSORIO [id number] [facility] 2024-07-03 19:56:00 2024-07-04 01:32:00 Emergency X SANDY GARCIA SHINTA [facility] [id number] [facility] 2024-07-03 19:56:00 2024-07-04 01:32:00 Emergency Sandy Garcia [facility] 1..840.114 350.1.13.10 4.2.7.2.686 [id number] [facility] 2024-06-21 02:04:00 2024-06-21 02:59:00 Emergency X VINCTARIQ, SANDY MIRANDA [facility] ERT [id number] [facility] 2024-06-21 02:04:00 2024-06-21 02:59:00 Emergency Sandy Garcia [facility] 1.2.840.114 350.1.13.10 4.2.7.2.686 [id number] [facility] 2024-06-20 00:00:00 2024-06-20 00:00:00 Outpatient JOANNE MONTES [id number] [facility] 2024-06-18 00:00:00 2024-06-18 00:00:00 Outpatient GISELLE OSORIO [id number] [facility] 2024-06-17 15:30:00 2024-06-17 15:30:00 Outpatient KELLEE DORMAN [id number] [facility] 2024-06-14 21:28:00 2024-06-15 00:28:00 Emergency X SANDY GARCIA STEPHONTARIQ SANDY [facility] [id number] [facility] 2024-06-14 21:28:00 2024-06-15 00:28:00 Emergency Sandy Garcia [facility] 1.2.840.114 350.1.13.10 4.2.7.2.686 [id number] [facility] 2024-06-06 21:56:00 2024-06-07 02:40:00 Emergency X OLIVIA GARCIA WAKILI [facility] [id number] [facility] 2024-06-06 21:56:00 2024-06-07 02:40:00 Emergency Olivia Garcia [facility] .2.840.114 350.1.13.10 4.2.7.2.686 [id number] [facility] 2024-06-02 00:00:00 2024-06-02 00:00:00 Outpatient JOANNE MONTES [id number] [facility] 2024-05-28 13:00:00 2024-05-28 13:00:00 Outpatient GISELLE OSORIO KELLEE [id number] [facility] 2024-05-20 00:00:00 2024-05-20 00:00:00 Outpatient JOANNE MONTES KELLEE [id number] [facility] 2024-05-19 11:44:00 2024-05-19 13:35:00 Emergency X KYLE ANNALISE [facility] [id number] [facility] 2024-05-19 11:44:00 2024-05-19 13:35:00 Emergency Annlaise Wright [facility] 1..840.114 350.1.13.10 4.2.7.2.686 [id number] [facility] 2024-05-18 11:15:00 2024-05-18 11:15:00 Outpatient LABGerman DORMAN KELLEE [id number] [facility] 2024-05-18 10:30:00 2024-05-18 10:30:00 Outpatient JOANNE MONTES KELLEE [id number] [facility] 2024-05-17 18:30:00 2024-05-17 22:19:00 Emergency Alesha Roy [facility] ..840.114 350.1.13.10 4.2.7.2.686 [id number] [facility] 2024-05-13 18:04:00 2024-05-13 20:42:00 Emergency ER ARELIS KERN [facility] [id number] [facility] 2024-05-12 00:00:00 2024-05-12 00:00:00 Outpatient JOANNE MONTES KELLEE [id number] [facility] 2024-05-07 18:47:00 2024-05-07 21:36:00 Emergency Saleem Edward [facility] 1..840.114 350.1.13.10 4.2.7.2.686 [id number] [facility] 2024-04-22 09:15:00 2024-04-22 09:15:00 Outpatient FARTUN GILLESPIE KELLEE DORMAN [id number] [facility] 2024-04-15 10:30:00 2024-04-15 10:30:00 Outpatient JYOTI JOANNE DORMAN [id number] [facility] 2024-04-12 00:00:00 2024-04-12 00:00:00 Outpatient JYOTI JOANNE DORMAN [id number] [facility] 2024-04-10 16:20:00 2024-04-10 18:53:00 Emergency ER TAVARES MG JR [facility] [id number] [facility] 2024-04-10 16:20:00 2024-04-10 18:53:00 Departed Emergency Room [facility] [id number] [facility] 2024-04-08 17:37:00 2024-04-08 20:38:00 Emergency Leigh Rojo NDJULIANE [facility] 1.2.840.114 350.1.13.10 4.2.7.2.686 [id number] [facility] 2024-04-08 00:00:00 2024-04-08 00:00:00 Outpatient JYTOI JOANNE DORMAN [id number] [facility] 2024-03-12 00:00:00 2024-03-12 00:00:00 Outpatient JOANNE MONTES [id number] [facility] 2024-03-06 11:00:00 2024-03-06 11:00:00 Outpatient JOANNE MONTES [id number] [facility] 2024-02-06 11:00:2024-02-06 11:00:00 Outpatient JO, GISELLE KELLEE DORMAN [id number] [facility] 2024-02-06 10:40:00 2024-02-06 10:40:00 Outpatient KELLEE DORMAN [id number] [facility] 2024-02-06 00:00:00 2024-02-06 00:00:00 Outpatient HUNDL, JOANNE DORMAN [id number] [facility] 2024-02-05 00:00:00 2024-02-05 00:00:00 Outpatient HUNDL, JOANNE DORMAN [id number] [facility] 2024-01-14 09:30:00 2024-01-14 09:30:00 Outpatient HUNDL, [facility]ORMAN [id number] [facility]24-[facility]-09 00:00:00 2024-01-09 00:00:00 Outpatient HUNDL, JOANNE DORMAN [id number] [facility] 2024-01-06 00:00:00 2024-01-06 00:00:00 Outpatient HUNDL, JOANNE DORMAN [id number] [facility] 2024-01-03 00:00:00 2024-01-03 00:00:00 Outpatient HUNDL, JOANNE DORMAN [id number] [facility] 2024-01-02 14:00:00 2024-01-02 14:00:00 Outpatient HUNDL, JOANNE DORMAN [id number] [facility] 2023-12-13 09:30:00 2023-12-13 09:30:00 Outpatient HUNDL, JOANNE DORMAN [id number] [facility] 2023-12-09 00:00:00 2023-12-09 00:00:00 Outpatient HUNDL, JOAN[facility] [id number] [facility]23-[facility]-05 00:00:00 2023-12-05 00:00:00 Outpatient HUNDL, JOANNE DORMAN [id number] [facility] 2023-12-03 11:45:00 2023-12-03 11:45:00 Outpatient LAB90 KELLEE DORMAN [id number] [facility] 2023-12-03 11:00:00 2023-12-03 11:00:00 Outpatient JOANNE MONTES KELLEE [id number] [facility] 2023-11-26 00:00:00 2023-11-26 00:00:00 Outpatient JOANNE MONTES KELLEE [id number] [facility] 2023-10-31 00:00:00 2023-10-31 00:00:00 Outpatient COSMO DORMAN [id number] [facility] 2023-10-31 00:00:00 2023-10-31 00:00:00 Outpatient COSMO DORMAN KELLEE [id number] [facility] 2023-10-29 14:15:00 2023-10-29 14:15:00 Outpatient LAB90 KELLEE [facility]ELLEE [id number] [facility] 2023-10-29 13:30:00 2023-10-29 13:30:00 Outpatient JOANNE MONTES KELLEE [id number] [facility] 2023-10-10 21:31:00 2023-10-11 00:43:00 Emergency X OLIVIA GARCIA [facility] [id number] [facility] 2023-10-10 21:31:00 2023-10-11 00:43:00 Emergency Olivia Garcia [facility] 1.2.840.114 350.1.13.10 4.2.7.2.686 [id number] [facility] 2023-08-31 18:02:00 2023-08-31 22:40:00 Emergency ER SHERIDAN MCMANUS [facility] [id number] [facility] 2023-08-31 18:02:00 2023-08-31 22:40:00 emergency [facility] [id number] 2023-07-01 19:50:00 2023-07-01 22:59:00 Emergency X ROBERTO RICHARDS [facility] [id number] [facility] 2023-07-01 19:50:00 2023-07-01 22:59:00 Emergency Roberto Richards [facility] 1.2.840.114 350.1.13.10 4.2.7.2.686 [id number] [facility] 2023-06-04 23:37:00 2023-06-06 13:30:00 Inpatient ER SHAN BUSCH [facility] [id number] [facility] 2023-06-04 23:37:00 2023-06-06 13:30:00 observatio n encounter [facility] [id number] 24 2023-05-11 01:16:00 2023-05-13 17:04:00 Inpatient ER RIDDHI MYLES [facility] [id number] [facility] 2023-05-11 01:16:00 2023-05-13 17:04:00 observatio n encounter [facility] [id number] 24 2023-05-10 21:48:00 2023-05-10 21:48:00 Emergency ER LINKRUELSUZETTEDEREKSharleneAN [facility] [id number] [facility] 2023-05-09 17:40:00 2023-05-09 20:30:00 Emergency X NARAYAN NARVAEZ [facility] [id number] [facility] 2023-05-09 17:40:00 2023-05-09 20:30:00 Emergency Narayan Narvaez [facility] 1.2.840.114 350.1.13.10 4.2.7.2.686 [id number] [facility] 2023-05-05 21:31:00 2023-05-06 03:15:00 Emergency ER SHERIDAN MCMANUS [facility] [id number] [facility] 2023-05-05 21:31:00 2023-05-06 03:15:00 emergency [facility] [id number] 2023-04-30 17:18:00 2023-04-30 21:20:00 Emergency X NARAYNA NARVAEZ [facility] [id number] [facility] 2023-04-30 17:18:00 2023-04-30 21:20:00 Emergency Narayan Narvaez [facility] 1.2.840.114 350.1.13.10 4.2.7.2.686 [id number] [facility] 2023-04-16 20:40:00 2023-04-16 23:10:00 Emergency X RICHARDSRICHARDROBERTO [facility] E[facility] [id number] [facility] 2023-04-16 20:40:00 2023-04-16 23:10:00 Emergency RichardsRichardRoberto [facility] 1.2.840.114 350.1.13.10 4.2.7.2.686 [id number] [facility] 2023-04-08 17:28:00 2023-04-08 21:20:00 Emergency X Saleem EDWARD [facility] [id number] [facility] 2023-04-08 17:28:00 2023-04-08 21:20:00 Emergency Saleem Edward [facility] 1.2.840.114 350.1.13.10 4.2.7.2.686 [id number] [facility] 2023-03-09 20:23:00 2023-03-10 00:20:00 Emergency X ROBERTO RICHARDS [facility] [id number] [facility] 2023-03-09 20:23:00 2023-03-10 00:20:00 Emergency Roberto Richards [facility] 1.2.840.114 350.1.13.10 4.2.7.2.686 [id number] [facility] 2023-03-01 19:35:00 2023-03-02 01:35:00 Emergency X OLIVIA GARCIA [facility] [id number] [facility] 2023-03-01 19:35:00 2023-03-02 01:35:00 Emergency Olivia Garcia [facility] 1.2.840.114 350.1.13.10 4.2.7.2.686 [id number] [facility] 2023-02-17 22:58:00 2023-02-18 02:22:00 Emergency X BRITTNI PADGETT [facility] [id number] [facility] 2023-02-17 22:58:00 2023-02-18 02:22:00 Emergency Brittni Padgett [facility] 1.2.840.114 350.1.13.10 4.2.7.2.686 [id number] [facility] 2023-02-15 13:46:00 2023-02-17 16:14:00 Outpatient X KYLAH JESÚS [facility] AL[facility]A [id number] [facility] 2023-02-15 13:46:00 2023-02-17 16:14:00 [facility] 1.2.840.114 350.1.13.10 4.2.7.2.686 [id number] [facility] 2022-01-17 10:48:00 2022-01-17 10:48:00 Outpatient PATRICE_RENETTA HUYNH MEHOP [id number] [facility] 2022-01-09 16:47:00 2022-01-09 20:28:00 Emergency X MELIDA LONGORIA [facility] [id number] [facility] 2022-01-09 16:47:00 2022-01-09 20:28:00 Emergency Melida Longoria [facility] 1.2840.114 350.1.13.10 4.2.7.2.686 [id number] [facility] 2021-12-13 22:16:00 2021-12-14 02:28:00 Emergency X WIL MCQUEEN [facility] [id number] [facility] 2021-12-13 22:16:00 2021-12-14 02:28:00 Emergency Wil Mcqueen [facility] 1.2840.114 350.1.13.10 4.2.7.2.686 [id number] [facility] 2021-11-11 19:50:00 2021-11-11 23:17:00 Emergency X DEE WANG [facility] [id number] [facility] 2021-11-11 19:50:00 2021-11-11 23:17:00 Emergency Dee Wang [facility] 1.2840.114 350.1.13.10 4.2.7.2.686 [id number] [facility] 2021-11-11 00:00:00 2021-11-11 00:00:00 Orders Only Doctor Unassigned, Veyo [facility] 1.2840.114 350.1.13.10 4.2.7.2.686 [id number] [facility] 2021-09-11 19:42:00 2021-09-11 23:02:00 Emergency X IBIKUNLE, FOLUSHO [facility] ERT [id number] [facility] 2021-09-11 19:42:00 2021-09-11 23:02:00 Emergency Dee Wang [facility] 1.2.840.114 350.1.13.10 4.2.7.2.686 [id number] [facility] 2021-08-14 23:38:00 2021-08-15 02:29:00 Emergency X OLIVIA GARCIA [facility] E[facility] [id number] [facility] 2021-08-14 23:38:00 2021-08-15 02:29:00 Emergency Olivia Garcia [facility] 1.2.840.114 350.1.13.10 4.2.7.2.686 [id number] [facility] 2021-05-27 23:23:00 2021-05-28 04:23:00 Emergency X CEM CHOI [facility] E[facility] [id number] [facility] 2021-05-27 23:23:00 2021-05-28 04:23:00 Emergency Cem Choi [facility] 1.2.840.114 350.1.13.10 4.2.7.2.686 [id number] [facility] 2021-04-10 00:00:00 2021-04-10 00:00:00 Transition of Care [facility] 1.2.840.114 350.1.13.10 4.2.7.2.686 [id number] [facility] 2021-04-07 16:30:00 2021-04-08 17:45:00 Hospital Encounter Roberto Richards Jelani [facility] 1.2.840.114 350.1.13.10 4.2.7.2.686 [id number] [facility] 2021-04-07 16:18:00 2021-04-07 16:18:00 Emergency X [facility] ERT [id number] [facility] 2021-01-12 03:01:00 2021-01-12 04:56:00 Emergency Narayan Narvaez [facility] 1.2840.114 350.1.13.10 4.2.7.2.686 [id number] [facility] 2021-01-12 03:01:00 2021-01-12 03:01:00 Emergency X NARAYAN NARVAEZ [facility] [id number] [facility] 2020-12-10 17:12:00 2020-12-10 21:14:00 Emergency Bal Hassan [facility] 1.2840.114 350.1.13.10 4.2.7.2.686 [id number] [facility] 2020-12-10 17:12:00 2020-12-10 17:12:00 Emergency X BAL HASSAN [facility] [id number] [facility] 2020-12-04 14:50:00 2020-12-04 17:08:00 Emergency Tremaine Becerra [facility] 1.2840.114 350.1.13.10 4.2.7.2.686 [id number] [facility] 2020-12-04 14:50:00 2020-12-04 17:08:00 Emergency X TREMAINE BECERRA [facility] [id number] [facility] 2020-11-03 20:44:00 2020-11-03 23:34:00 Emergency Leeanne Wise [facility] 1.2.840.114 350.1.13.10 4.2.7.2.686 [id number] [facility] 2020-11-03 20:44:00 2020-11-03 23:34:00 Emergency X LEEANNE WISE [facility] [id number] [facility] 2020-09-19 12:32:00 2020-09-19 14:15:00 Emergency ER MORA POLLOCK [facility] [id number] [facility] 2020-09-17 09:53:00 2020-09-17 11:55:00 Emergency Leeanne Wise [facility] 1.2.840.114 350.1.13.10 4.2.7.2.686 [id number] [facility] 2020-09-17 09:53:00 2020-09-17 11:55:00 Emergency X LEEANNE WISE [facility] [id number] [facility] 2020-09-17 09:53:00 2020-09-17 11:55:00 Emergency Leeanne Wise [facility] 1.2.840.114 350.1.13.10 4.2.7.2.686 [id number] 2020-09-07 00:37:00 2020-09-07 01:41:00 Emergency Saleem Edward [facility] 1.2.840.114 350.1.13.10 4.2.7.2.686 [id number] [facility] 2020-09-07 00:37:00 2020-09-07 01:41:00 Emergency X Saleem EDWARD [facility] E[facility] [id number] [facility] 2020-09-07 00:37:00 2020-09-07 01:41:00 Emergency Saleem Edward [facility] 1.2.840.114 350.1.13.10 4.2.7.2.686 [id number] 2020-09-07 00:00:00 2020-09-07 00:00:00 Orders Only Doctor Unassigned, Veyo [facility] 1.2.840.114 350.1.13.10 4.2.7.2.686 [id number] [facility] 2020-09-07 00:00:00 2020-09-07 00:00:00 Orders Only Doctor Unassigned, Veyo [facility] 1.2.840.114 350.1.13.10 4.2.7.2.686 [id number] 2020-08-28 01:59:00 2020-08-28 04:40:00 Emergency Olivia Garcia [facility] 1.2.840.114 350.1.13.10 4.2.7.2.686 [id number] [facility] 2020-08-28 01:59:00 2020-08-28 04:40:00 Emergency Olivia Garcia [facility] 1.2.840.114 350.1.13.10 4.2.7.2.686 [id number] 2020-08-28 01:59:00 2020-08-28 01:59:00 Emergency X OLIVIA GARCIA [facility] E[facility] [id number] [facility] 2020-08-14 11:48:00 2020-08-14 13:42:00 Emergency Best Taylor [facility] 1.2.840.114 350.1.13.10 4.2.7.2.686 [id number] [facility] 2020-08-14 11:48:00 2020-08-14 13:42:00 Emergency Best Taylor [facility] 1.2.840.114 350.1.13.10 4.2.7.2.686 [id number] 2020-08-14 11:33:00 2020-08-14 11:33:00 Emergency X BEST TAYLOR [facility] ERT [id number] [facility] 2020-08-10 18:35:00 2020-08-11 00:05:00 [facility] 1.2.840.114 350.1.13.10 4.2.7.2.686 [id number] [facility] 2020-08-10 18:35:00 2020-08-11 00:05:00 Emergency X JOSE WIRACHELLE [facility] ERT [id number] [facility] 2020-08-10 18:35:00 2020-08-11 00:05:00 Emergency Best Taylor [facility] 1.2.840.114 350.1.13.10 4.2.7.2.686 [id number] [id number] 2020-08-07 07:19:00 2020-08-07 09:02:00 Emergency Maurice [facility] 1.2.840.114 350.1.13.10 4.2.7.2.686 [id number] [facility] 2020-08-07 07:19:00 2020-08-07 09:02:00 [facility] 1.2.840.114 350.1.13.10 4.2.7.2.686 [id number] 2020-08-07 07:12:00 2020-08-07 07:12:00 Emergency X RUST ERT [id number] [facility] 2020-08-07 00:00:00 2020-08-07 00:00:00 Orders Only Doctor Unassigned, Veyo [facility] 1.2.840.114 350.1.13.10 4.2.7.2.686 [id number] [facility] 2020-08-07 00:00:00 2020-08-07 00:00:00 Orders Only Doctor Unassigned, Veyo [facility] 1.2.840.114 350.1.13.10 4.2.7.2.686 [id number] 2020-07-01 00:00:00 2020-07-01 00:00:00 Letter (Out) [facility] 1.2.840.114 350.1.13.10 4.2.7.2.686 [id number] [facility] 2020-07-01 00:00:00 2020-07-01 00:00:00 Letter (Out) [facility] 1.2.840.114 350.1.13.10 4.2.7.2.686 [id number] 2020-06-30 17:46:00 2020-06-30 21:06:00 Emergency Abdias Robertson [facility] 1.2.840.114 350.1.13.10 4.2.7.2.686 [id number] [facility] 2020-06-30 17:46:00 2020-06-30 21:06:00 Emergency X ABDIAS ROBERTSON R[facility] ERT [id number] [facility] 2020-06-30 17:46:00 2020-06-30 21:06:00 Emergency Abdias Robertson [facility] 1.2.840.114 350.1.13.10 4.2.7.2.686 [id number] 2020-06-28 16:00:00 2020-06-28 18:08:00 Emergency Narayan Narvaez [facility] 1.2.840.114 350.1.13.10 4.2.7.2.686 [id number] [facility] 2020-06-28 16:00:00 2020-06-28 18:08:00 Emergency Narayan Narvaez [facility] 1.2.840.114 350.1.13.10 4.2.7.2.686 [id number] 2020-06-28 16:00:00 2020-06-28 16:00:00 Emergency X NARAYAN NARVAEZ [facility] E[facility] [id number] [facility] 2020-06-14 00:00:00 2020-06-14 00:00:00 Telephone [facility] 1.2.840.114 350.1.13.10 4.2.7.2.686 [id number] [facility] 2020-06-14 00:00:00 2020-06-14 00:00:00 Telephone [facility] 1.2.840.114 350.1.13.10 4.2.7.2.686 [id number] 2020-06-12 17:40:00 2020-06-12 22:05:00 Emergency Leeanne Wise [facility] 1.2.840.114 350.1.13.10 4.2.7.2.686 [id number] [facility] 2020-06-12 17:40:00 2020-06-12 22:05:00 Emergency Leeanne Wise [facility] 1.2.840.114 350.1.13.10 4.2.7.2.686 [id number] 2020-06-12 17:28:00 2020-06-12 17:28:00 Emergency X RUST ERT [id number] [facility] 2020-05-16 17:10:00 2020-05-16 19:01:00 Emergency Chuck Bushra Shaw [facility] 1.2.840.114 350.1.13.10 4.2.7.2.686 [id number] [facility] 2020-05-16 17:10:00 2020-05-16 19:01:00 Emergency Bushra Rios [facility] 1.2.840.114 350.1.13.10 4.2.7.2.686 [id number] 2020-05-16 17:10:00 2020-05-16 17:10:00 Emergency X BUSHRA RIOS [facility] [id number] [facility] 2020-05-14 23:18:00 2020-05-15 02:54:00 Emergency Roberto Richards [facility] 1.2.840.114 350.1.13.10 4.2.7.2.686 [id number] [facility] 2020-05-14 23:18:00 2020-05-15 02:54:00 Emergency Roberto Richards [facility] 1.2.840.114 350.1.13.10 4.2.7.2.686 [id number] 2020-05-14 23:14:00 2020-05-14 23:14:00 Emergency X ROBERTO RICHARDS [facility] [id number] [facility] 2009-07-18 05:35:00 2009-07-18 09:19:00 Emergency ER SINCERE FRANK [facility] [id number] [facility] 2008-10-08 09:55:00 2008-10-08 14:19:00 Emergency ER GUMARO ALVAREZ [facility] [id number] [facility] 2008-03-26 15:21:00 2008-03-26 18:08:00 Emergency ER NEIL WILKINS [facility] [id number] [facility] 2005-05-25 06:35:00 2005-05-25 06:35:00 Outpatient LISA LUNA [facility] [id number] [facility] 2005-05-16 21:57:00 2005-05-16 23:40:00 Emergency ER JW SOLORZANO [facility] [id number] [facility] 2005-04-24 18:49:00 2005-04-24 22:40:00 Emergency ER JW SOLORZANO [facility] [id number] [facility] 2004-12-27 20:30:00 2004-12-28 01:40:00 Emergency ER SANIA SIBLEY [facility] [id number] [facility] 2003-12-07 22:40:00 2003-12-08 02:48:00 Emergency ER GINA MARTIN [facility] [id number] [facility] 2003-12-06 13:57:00 2003-12-06 18:30:00 Emergency ER YIN RIOS [facility] [id number] [facility] 2003-08-31 19:43:00 2003-08-31 22:55:00 Emergency ER GUMARO ALVAREZ [facility] [id number] [facility] 2003-08-22 19:26:00 2003-08-22 22:10:00 Emergency ER ALBERTO CASTLE [facility] [id number] [facility] 2002-01-30 22:41:00 2002-01-31 01:29:00 Emergency ER ANTHONY SCHNEIDER [facility] [id number] [facility] 2001-10-28 09:15:00 2001-10-28 11:25:00 Emergency ER BETH MCKEONUP [facility] [id number] [facility] 2001-04-15 19:14:00 2001-04-15 23:10:00 Emergency ER ARLETTE ROBERT [facility] [id number] [facility] 2000-12-25 21:52:00 2000-12-26 00:15:00 Emergency ER GISELA RIOS [facility] [id number] [facility] 2000-12-23 18:51:00 2000-12-23 22:00:00 Emergency ER HUGO COFFMAN [facility] [id number] [facility] 1999-10-26 21:11:00 1999-10-27 00:20:00 Emergency ER JW SOLORZANO [facility] [id number] [facility] Results Test Description Test [...] the spleen. Osseous: No acute osseous finding. [facility] CT Abdomen pelvis w contrast 06:50:04 Exam: [...] ?There is nopelvic adenopathy. Osseous/Soft Tissues: Unremarkable. [facility] Xzair4231-88-19 04:06:42* Test Item Value Reference Range Interpretation Comme nts NA (test code = 7306629671) 139 mmol/L 135-145 K (test code = 0872185306) 3.5 mmol/L 3.5-5.0 CL (test code = 3401611484) 105 mmol/L 98-108 CO2 TOTAL (test code = 6675033844) 26 mmol/L 23-31 AGAP (test code = 2822114287) 8 2-16 BUN (test code = 3782844804) 5 mg/dL 7-23 L GLUCOSE (test code = 9682312739) 101 mg/dL 70-110 CREATININE (test code = 2160-0) 0.58 mg/dL 0.50-1.04 TOTAL BILI (test code = 0636851320) 0.1-1.1 L CALCIUM (test code = 5517548094) 9.3 mg/dL 8.6-10.6 T PROTEIN (test code = 4490608707) 6.8 g/dL 6.3-8.2 ALBUMIN (test code = 4603048628) 3.9 g/dL 3.5-5.0 ALK PHOS (test code = 9878604706) 74 U/L 34-122 ALTv (test code = 1742-6) 17 U/L 5-35 AST(SGOT) (test code = 3192174773) 28 U/L 13-40 eGFR (test code = 87921-6) 113.9 mL/min/1.73m2 CKD-EPI eGFR (2020). Assuming creatinine has been stable day-to-day for at least three months, the eGFR indicates Category G1 (>= 90 mL/min/1.73 m2) Lab Interpretation (test code = 96973-9) [facility], Ghoko8466-30-39 04:01:05* Test Item Value Reference Range Interpretation Comme nts LIPASE (test code = 5767819547) 80 U/L 0-220 Lab Interpretation (test cod e = 06207-3) [facility] with Dnrwzetwsvpz8629-60-99 03:46:26* Test Item Value Reference Range Interpretation [...] 33.2 g/dL 31.6-35.1 RDW-SD (test code = 46773-7) 42.5 fL 39.0-49.9 RDW-CV (test code = 788-0) 14.6 % 12.0-15.5 PLT (test code = 777-3) 327 166-358 MPV (test code = 26115-8) 9.3 fL 9.5-12.9 L NRBC/100 WBC (test code = 4814258630) 0.0 0.0-10.0 NRBC x10^3 (test code = 2466010077) See_Comment [Automated Tonaraa ge] The system which generated this result transmitted reference range: 10*3/?L. The reference range was not used to interpret this result as normal/abnormal. GRAN MAT (NEUT) % (test code = 770-8) 65.7 % IMM GRAN % (test code = 1769360769) 0.50 % LYMPH % (test code = 736-9) 26.4 % MONO % (test code = 5905-5) 5.6 % EOS % (test code = 713-8) 1.4 % BASO % (test code = 706-2) 0.4 % GRAN MAT x10^3(ANC) (test code = 6328009141) 8.21 10*3/uL 1.88-7.09 H IMM GRAN x10^3 (test code = 4076420332) 0.06 10*3/uL 0.00-0.06 LYMPH x10^3 (test code = 731-0) 3.30 10*3/uL 1.32-3.29 H MONO x10^3 (test code = 742-7) 0.70 10*3/uL 0.33-0.92 EOS x10^3 (test code = 711-2) 0.17 10*3/uL 0.03-0.39 BASO x10^3 (test code = 704-7) 0.05 10*3/uL 0.01-0.07 Lab Interpretation (test code = 63124-4) [facility] w ufylmgzk7948-32-86 05:39:04CT ABDOMEN PELVIS W CONTRAST HISTORY: 44 [...] TISSUES: No suspicious lytic or sclerotic bony lesions.[facility]. Metabolic Panel (28807)2024-06-15 05:12:33* Test Item Value Reference Range Interpretation Comme nts NA (test code = 7610961329) 139 mmol/L 135-145 K (test code = 5072761292) 3.7 mmol/L 3.5-5.0 CL (test code = 4654999069) 109 mmol/L 98-108 H CO2 TOTAL (test code = 0327497513) 23 mmol/L 23-31 AGAP (test code = 3078259352) 7 2-16 BUN (test code = 4306526685) 6 mg/dL 7-23 L GLUCOSE (test code = 8847366414) 101 mg/dL 70-110 CREATININE (test code = 2160-0) 0.67 mg/dL 0.50-1.04 TOTAL BILI (test code = 6757990070) 0.1-1.1 L CALCIUM (test code = 1995166961) 9.4 mg/dL 8.6-10.6 T PROTEIN (test code = 8826419452) 7.0 g/dL 6.3-8.2 ALBUMIN (test code = 0061911423) 4.0 g/dL 3.5-5.0 ALK PHOS (test code = 6445100189) 87 U/L 34-122 ALTv (test code = 1742-6) 28 U/L 5-35 AST(SGOT) (test code = 1284750375) 24 U/L 13-40 eGFR (test code = 88294-9) 110.0 mL/min/1.73m2 CKD-EPI eGFR (2020). Assuming creatinine has been stable day-to-day for at least three months, the eGFR indicates Category G1 (>= 90 mL/min/1.73 m2) Lab Interpretation (test code = 89359-0) [facility]normal [facility] HospitalTroponin [id number] 05:03:33* Test Item Value Reference Range Interpretation Comme nts TROPONIN I (test code = 0604239494) 0.000 ng/mL <=0.034 DARWIN (test code = [...] of biotin. Lab Interpretation (test code = 99946-0) Normal [facility]ase2024-12-09 04:51:35* Test Item Value Reference Range Interpretation Comme nts LIPASE (test code = 5351940988) 94 U/L 0-220 Lab Interpretation (test cod e = 48969-9) Normal [facility] HospitalPregnancy Test, Vbuxp3050-31-56 04:51:30* Test Item Value Reference Range Interpretation Comme nts PREG SERUM (test code = 6990894992) Negative DARWIN (test code = DARWIN) Less than 10 IU/L. ?If low titer or ectopic is suspected, resubmit specimen in 48-72 hours. [facility] Hospital[facility]b with Gijc7134-00-91 04:36:57* Test Item Value Reference Range Interpretation [...] 32.9 g/dL 31.6-35.1 RDW-SD (test code = 13135-1) 44.3 fL 39.0-49.9 RDW-CV (test code = 788-0) 15.0 % 12.0-15.5 PLT (test code = 777-3) 347 166-358 MPV (test code = 94678-1) 9.4 fL 9.5-12.9 L NRBC/100 WBC (test code = 5425841964) 0.0 0.0-10.0 NRBC x10^3 (test code = 8189604017) See_Comment [Automated messa ge] The system which generated this result transmitted reference range: 10*3/?L. The reference range was not used to interpret this result as normal/abnormal. GRAN MAT (NEUT) % (test code = 770-8) 60.2 % IMM GRAN % (test code = 9170784748) 0.40 % LYMPH % (test code = 736-9) 31.3 % MONO % (test code = 5905-5) 5.8 % EOS % (test code = 713-8) 1.8 % BASO % (test code = 706-2) 0.5 % GRAN MAT x10^3(ANC) (test code = 5011662820) 6.36 10*3/uL 1.88-7.09 IMM GRAN x10^3 (test code = 0906760808) 0.04 10*3/uL 0.00-0.06 LYMPH x10^3 (test code = 731-0) 3.30 10*3/uL 1.32-3.29 H MONO x10^3 (test code = 742-7) 0.61 10*3/uL 0.33-0.92 EOS x10^3 (test code = 711-2) 0.19 10*3/uL 0.03-0.39 BASO x10^3 (test code = 704-7) 0.05 10*3/uL 0.01-0.07 Lab Interpretation (test code = 29517-0) Abnormal [facility] O6812-81-43 07:55:17* Test Item Value Reference Range Interpretation Comme nts TROPONIN I (test code = 8103883434) 0.000 ng/mL <=0.034 DARWIN (test code = [...] of biotin. Lab Interpretation (test code = 17028-8) [facility] 1 [id number] 06:16:28Exam: Chest (1 View), 06/06/2024 11:30 PM. Ordering Physician: OLIVIA GARCIA. History: Chest pain. Technique: AP view of the chest. Technical Quality: Adequate. Comparison: Chest radiograph 05/17/2024. Findings: Normal cardiac silhouette size. ?No airspace consolidation, pleuraleffusion, or pneumothorax. No acute osseous abnormality.[facility]PO[facility] XBYO8921-69-10 05:19:00* Test Item Value Reference Range Interpretation Comme nts POCT PREG (test code = 1605) Negative On board controls acceptable with C Line (test code = 3574) Yes POCT PREG LOT # (test code = 3570) [id number] POCT PREG TEST DATE ( test code = 3576) 04/11/2025 Lab Interpretation (test cod e = 48170-4) Normal [facility] P6040-06-84 05:00:24* Test Item Value Reference Range Interpretation Comme nts TROPONIN I (test code = 4547006210) 0.000 ng/mL <=0.034 DARWIN (test code = [...] of biotin. Lab Interpretation (test code = 36206-1) Normal [facility]. Metabolic Panel (97548)2024-06-07 05:00:19* Test Item Value Reference Range Interpretation Comme nts NA (test code = 9109895540) 139 mmol/L 135-145 K (test code = 3949046126) 3.6 mmol/L 3.5-5.0 CL (test code = 4789123032) 108 mmol/L 98-108 CO2 TOTAL (test code = 1721419343) 22 mmol/L 23-31 L AGAP (test code = 4635292021) 9 2-16 BUN (test code = 7700626637) 10 mg/dL 7-23 GLUCOSE (test code = 6959560388) 144 mg/dL 70-110 H CREATININE (test code = 2160-0) 0.62 mg/dL 0.50-1.04 TOTAL BILI (test code = 5858602468) 0.1-1.1 L CALCIUM (test code = 9103010674) 9.2 mg/dL 8.6-10.6 T PROTEIN (test code = 0087486383) 6.5 g/dL 6.3-8.2 ALBUMIN (test code = 3490765385) 3.7 g/dL 3.5-5.0 ALK PHOS (test code = 7726377149) 69 U/L 34-122 ALTv (test code = 1742-6) 14 U/L 5-35 AST(SGOT) (test code = 4231070573) 15 U/L 13-40 eGFR (test code = 30140-9) 112.1 mL/min/1.73m2 CKD-EPI eGFR (2020). Assuming creatinine has been stable day-to-day for at least three months, the eGFR indicates Category G1 (>= 90 mL/min/1.73 m2) Lab Interpretation (test code = 11985-3) Abnormal [facility] with Vqsp9654-97-38 04:38:25* Test Item Value Reference Range Interpretation [...] 32.8 g/dL 31.6-35.1 RDW-SD (test code = 00006-0) 44.1 fL 39.0-49.9 RDW-CV (test code = 788-0) 14.9 % 12.0-15.5 PLT (test code = 777-3) 358 166-358 MPV (test code = 49665-3) 9.4 fL 9.5-12.9 L NRBC/100 WBC (test code = 3477077483) 0.0 0.0-10.0 NRBC x10^3 (test code = 9590093627) See_Comment [Automated Tonaraa ge] The system which generated this result transmitted reference range: 10*3/?L. The reference range was not used to interpret this result as normal/abnormal. GRAN MAT (NEUT) % (test code = 770-8) 58.2 % IMM GRAN % (test code = 2352410144) 0.40 % LYMPH % (test code = 736-9) 34.1 % MONO % (test code = 5905-5) 4.7 % EOS % (test code = 713-8) 2.3 % BASO % (test code = 706-2) 0.3 % GRAN MAT x10^3(ANC) (test code = 0061063735) 5.33 10*3/uL 1.88-7.09 IMM GRAN x10^3 (test code = 0349858311) 0.04 10*3/uL 0.00-0.06 LYMPH x10^3 (test code = 731-0) 3.12 10*3/uL 1.32-3.29 MONO x10^3 (test code = 742-7) 0.43 10*3/uL 0.33-0.92 EOS x10^3 (test code = 711-2) 0.21 10*3/uL 0.03-0.39 BASO x10^3 (test code = 704-7) 0.03 10*3/uL 0.01-0.07 Lab Interpretation (test code = 28245-0) [facility] VXMIVNMG9658-06-17 18:53:41EXAM: CT HEAD WO CONTRAST HISTORY: 44 [...] clear. Thecalvarium and central skull base are unremarkable.[facility]XR FOREARM 2 VW CMGFO5629-57-80 04:08:39EXAM: XR HAND 3+ VW RIGHT, XR [...] No radiopaqueforeign body. Mild diffuse soft tissue swelling.[facility] 3+ VW XTBJM7226-69-71 04:08:39EXAM: XR HAND 3+ VW RIGHT, XR [...] No radiopaqueforeign body. Mild diffuse soft tissue swelling.[facility]XR ELBOW <3 VW DLYYO0314 04:08:39EXAM: XR HAND 3+ VW RIGHT, XR [...] radiopaqueforeign body. Mild diffuse soft tissue swelling. [facility] MAXILLOFACIAL/MANDIBLE WO CONTRAST 2024-05-18 03:36:27ORDERING PHYSICIAN:ALESHA ?ESTELA [...] no evidence of retrobulbar hematomas or retroconal fatstranding.[facility] CERVICAL SPINE WO CONTRAST 2024-05-18 03:28:19ORDERING [...] tissues arenormal. The visualized lung apices are clear.[facility]POCT Pegn5448-77-74 02:00:00* Test Item Value Reference Range Interpretation Comme nts POCT PREG (test code = 1605) Negative On board controls acceptable with C Line (test code = 3574) Yes Lab Interpretation (test cod e = 46674-4) Normal [facility]. Metabolic Panel (96651)2024-05-08 01:19:56* Test Item Value Reference Range Interpretation Comme nts NA (test code = 4356717279) 139 mmol/L 135-145 K (test code = 3296102155) 3.3 mmol/L 3.5-5.0 L CL (test code = 1907721379) 107 mmol/L 98-108 CO2 TOTAL (test code = 0715831668) 22 mmol/L 23-31 L AGAP (test code = 4549306481) 10 2-16 BUN (test code = 3970063435) 5 mg/dL 7-23 L GLUCOSE (test code = 6610038761) 131 mg/dL 70-110 H CREATININE (test code = 2160-0) 0.72 mg/dL 0.50-1.04 TOTAL BILI (test code = 3093856912) 0.1-1.1 L CALCIUM (test code = 4270306216) 9.3 mg/dL 8.6-10.6 T PROTEIN (test code = 6112043939) 7.0 g/dL 6.3-8.2 ALBUMIN (test code = 0981636150) 4.1 g/dL 3.5-5.0 ALK PHOS (test code = 1236376181) 76 U/L 34-122 ALTv (test code = 1742-6) 27 U/L 5-35 AST(SGOT) (test code = 1388594620) 30 U/L 13-40 eGFR (test code = 90027-4) 105.2 mL/min/1.73m2 CKD-EPI eGFR (2020). Assuming creatinine has been stable day-to-day for at least three months, the eGFR indicates Category G1 (>= 90 mL/min/1.73 m2) Lab Interpretation (test code = 80437-0) Abnormal [facility] HospitalTroponin [id number] 01:18:54* Test Item Value Reference Range Interpretation Comme nts TROPONIN I (test code = 9054896683) 0.003 ng/mL <=0.034 DARWIN (test code = [...] of biotin. Lab Interpretation (test code = 78269-4) Normal [facility] HospitalMagnesium2024-11-01 01:07:50* Test Item Value Reference Range Interpretation Comme nts MAGNESIUM (test code = 5767308351) 1.7 mg/dL 1.7-2.4 Lab Interpretation (test cod e = 52421-5) Normal [facility] HospitalLipase2024-11-01 01:07:30* Test Item Value Reference Range Interpretation Comme nts LIPASE (test code = 0032222354) 97 U/L 0-220 Lab Interpretation (test cod e = 11093-3) Normal [facility] with Ysvl7390-95-19 00:51:30* Test Item Value Reference Range Interpretation [...] 33.2 g/dL 31.6-35.1 RDW-SD (test code = 33023-9) 43.6 fL 39.0-49.9 RDW-CV (test code = 788-0) 14.8 % 12.0-15.5 PLT (test code = 777-3) 382 166-358 H MPV (test code = 45165-1) 9.7 fL 9.5-12.9 NRBC/100 WBC (test code = 0733902888) 0.0 0.0-10.0 NRBC x10^3 (test code = 1971129651) See_Comment [Automated messa ge] The system which generated this result transmitted reference range: 10*3/?L. The reference range was not used to interpret this result as normal/abnormal. GRAN MAT (NEUT) % (test code = 770-8) 63.3 % IMM GRAN % (test code = 4932956599) 0.40 % LYMPH % (test code = 736-9) 27.5 % MONO % (test code = 5905-5) 5.4 % EOS % (test code = 713-8) 2.9 % BASO % (test code = 706-2) 0.5 % GRAN MAT x10^3(ANC) (test code = 0340431625) 7.25 10*3/uL 1.88-7.09 H IMM GRAN x10^3 (test code = 0828973242) 0.05 10*3/uL 0.00-0.06 LYMPH x10^3 (test code = 731-0) 3.15 10*3/uL 1.32-3.29 MONO x10^3 (test code = 742-7) 0.62 10*3/uL 0.33-0.92 EOS x10^3 (test code = 711-2) 0.33 10*3/uL 0.03-0.39 BASO x10^3 (test code = 704-7) 0.06 10*3/uL 0.01-0.07 Lab Interpretation (test code = 20603-4) Abnormal [facility] or plasma cardiac troponin I panel by high sensitivity miihfv9714-42-50 17:16:00* Test Item Value Reference Range Interpretation Comme nts Troponin T High Sensitivity (test code = 42028-0) < 6.0 [facility] JgoRKA2471-54-05 17:14:00* Test Item Value Reference Range Interpretation Comme nts Aspartate Amino Transf (AST/ SGOT) (test code = QLG5141) 14 [facility] CtrBilirubin qvnia4722-85-39 17:14:00* Test Item Value Reference Range Interpretation Comme nts Total Bilirubin (test code = SUK2492) < 0.2 [facility] CtrEstimated glomerular filtration rate (GFR) ausizwxxaieuv9220-10-45 17:14:00* Test Item Value Reference Range Interpretation Comme nts Glomerular Filtration Rate C alc (test code = 431021584) > 60.00 [facility] CtrBUN/creatinine clrul9941-57-64 17:14:00* Test Item Value Reference Range Interpretation Comme nts BUN/Creatinine Ratio (test c ode = 52061338) 7.3 [facility] XgzWR69754-25-36 17:14:00* Test Item Value Reference Range Interpretation Comme nts Carbon Dioxide Level (test c ode = 14629529) 22 [facility] CtrAnion gap ngeoshmhsmr7019-95-61 17:14:00* Test Item Value Reference Range Interpretation Comme nts Anion Gap (test code = 29697450) 16.6 [facility] CtrCalcium vgxuw2826-86-24 17:14:00* Test Item Value Reference Range Interpretation Comme nts Calcium Level (test code = 61664032) 9.9 [facility] CtrGlobulin vrv3270-66-44 17:14:00* Test Item Value Reference Range Interpretation Comme nts Globulin (test code = 838062852) 3.1 [facility] CtrALT (SGPT) ser/qkbm6570-89-23 17:14:00* Test Item Value Reference Range Interpretation Comme nts Alanine Aminotransferase (AL T/SGPT) (test code = 1742-6) 10 [facility] CtrAmylase nyfio3064-52-63 17:14:00* Test Item Value Reference Range Interpretation Comme nts Amylase Level (test code = 1798-8) 48 [facility] IryYjcjeu9189-30-98 17:14:00* Test Item Value Reference Range Interpretation Comme nts Lipase (test code = 67408266) 24 [facility] CtrALP ser/lmqg4077-16-02 17:14:00* Test Item Value Reference Range Interpretation Comme nts Total Alkaline Phosphatase ( test code = 6768-6) 92 [facility] CtrSerum or plasma glucose measurement (mass/volume) 2024-04-10 17:14:00* Test Item Value Reference Range Interpretation Comme nts Random Glucose (test code = 2345-7) 109 [facility] CtrSerum or plasma urea nitrogen measurement (mass/volume)2024-04-10 17:14:00* Test Item Value Reference Range Interpretation Comme nts Blood Urea Nitrogen (test co de = 3094-0) 4 [facility] CtrAmphetamine ur mvbovs4852-85-00 17:13:00* Test Item Value Reference Range Interpretation Comme [facility] Urine Amphetamines Screen (t est code = 52192-0) NEGATIVE [facility] DcjEhzkgvozd8893-82-39 17:13:00* Test Item Value Reference Range Interpretation Comme nts Methadone Level (test code = GPN2927) NEGATIVE [facility] CtrBenzodiazepines screen yg5556-04-58 17:13:00* Test Item Value Reference Range Interpretation Comme nts Urine Benzodiazepines Screen (test code = 189575811) POSITIVE [facility] CtrCannabinoids (2-qlfjhgc-FUG) qaqcztjhnmj9047-19-50 17:13:00* Test Item Value Reference Range Interpretation Comme [facility] Urine Cannabinoids (test cod e = 485277043) NEGATIVE [facility] CtrCocaine metabolite zgwdet6359-28-35 17:13:00* Test Item Value Reference Range Interpretation Comme [facility] Urine Cocaine Metabolite (te st code = 908898319) NEGATIVE [facility] CtrOpiates svwli2241-88-40 17:13:00* Test Item Value Reference Range Interpretation Comme [facility] Urine Opiates Screen (test c ode = 158761930) [facility]IVE [facility] (mass/volume) 2024-04-10 17:13:00* Test Item Value Reference Range Interpretation Comme nts Hydrocodone Level (test code = 3681-4) NEGATIVE [facility]trU[facility] fentanyl measurement by confirmatory method (mass/volume)2024-04-10 17:13:00* Test Item Value Reference Range Interpretation Comme nts Urine Fentanyl Screen (test code = 02772-2) NEGATIVE [facility] CtrPhencyclidine (PCP) zn2022-90-01 17:13:00* Test Item Value Reference Range Interpretation Comme nts Urine Phencyclidine (PCP) Le edilson (test code = 244149517) NEGATIVE [facility] CtrPropoxyphene [Mass/volume] in Dtrnm2393-52-10 17:13:00* Test Item Value Reference Range Interpretation Comme nts Propoxyphene Level (test cod e = 3545-1) NEGATIVE [facility] CtroxyCODONE [Mass/volume] in Liyxf8453-73-36 17:13:00* Test Item Value Reference Range Interpretation Comme nts Oxycodone Level (test code = 69951-4) NEGATIVE [facility] leukocyte esterase syjjtomnd9205-85-24 17:10:00* Test Item Value Reference Range Interpretation Comme nts Urine Leukocyte Esterase (te st code = 794591853) 3+ [facility] CtrRBC count ur gikh5108-34-37 17:08:00* Test Item Value Reference Range Interpretation Comme nts Urine RBC (test code = 798-9) 0-2 [facility] CtrUrine examination for white blood cells (WBC) 2024-04-10 17:08:00* Test Item Value Reference Range Interpretation Comme nts Urine WBC (test code = 837263662) >100 [facility] CtrAutomated epithelial cells count in urine sediment (number/area)2024-04-10 17:08:00* Test Item Value Reference Range Interpretation Comme nts Urine Epithelial Cells (test code = 57170-7) 6-10 [facility] CtrBacteria detection in urine sediment by light azadjvvlpz2240-54-29 17:08:00* Test Item Value Reference Range Interpretation Comme nts Urine Bacteria (test code = 98595-1) Few [facility] CtrUrine casts detection by automated method 2024-04-10 17:08:00* Test Item Value Reference Range Interpretation Comme nts Urine Casts (test code = 12027-4) 0-2 [facility] CtrHCG ur UH2455-88-44 17:03:00* Test Item Value Reference Range Interpretation Comme nts Urine HCG, Qualitative (test code = 2106-3) NEGATIVE [facility] CtrColor of Urine by Mdof3453-80-38 17:03:00* Test Item Value Reference Range Interpretation Comme nts Urine Color (test code = 21379-2) Yellow [facility] CtrAppearance of Qzdut6395-71-49 17:03:00* Test Item Value Reference Range Interpretation Comme nts Urine Appearance (test code = 5767-9) Cloudy [facility] glucose iqxhrojgj0401-45-30 17:03:00* Test Item Value Reference Range Interpretation Comme nts Urine Glucose (UA) (test cod e = 2349-9) Negative [facility] CtrBilirubin mr0893-26-01 17:03:00* Test Item Value Reference Range Interpretation Comme nts Urine Bilirubin (test code = 975105705) Negative [facility] CtrKetones wx5470-93-80 17:03:00* Test Item Value Reference Range Interpretation Comme [facility] Urine Ketones (test code = 91571666) Negative [facility] CtrSpecific gravity of Urine by Automated test strip 2024-04-10 17:03:00* Test Item Value Reference Range Interpretation Comme nts Urine Specific [place] (test code = 92643-3) 1.006 [facility] CenterU[facility] blood hbperaaqf7506-74-24 17:03:00* Test Item Value Reference Range Interpretation Comme nts Urine Blood (test code = 30366-3) Nonhemolyzed Trace [facility] CtrpH ur7450-97-26 17:03:00* Test Item Value Reference Range Interpretation Comme nts Urine pH (test code = 2756-5) 6.000 [facility] CtrProtein uf9887-99-39 17:03:00* Test Item Value Reference Range Interpretation Comme nts Urine Protein (test code = 14442173) Negative [facility] CtrUrobilinogen, urine, ap3537-93-32 17:03:00* Test Item Value Reference Range Interpretation Comme [facility] Urine Urobilinogen (test cod e = 527331595) 0.2 [facility] CtrUrine nitrate lqcqiaoue9582-89-15 17:03:00* Test Item Value Reference Range Interpretation Comme nts Urine Nitrate (test code = 77016-1) Negative [facility] CtrAbsolute eosinophil zkxqs3506-71-33 17:00:00* Test Item Value Reference Range Interpretation Comme nts Eosinophils # (Auto) (test c ode = KSL7663) 0.25 [facility] CtrRBC tbsjn3798-96-39 17:00:00* Test Item Value Reference Range Interpretation Comme [facility] Red Blood Count (test code = 96882451) 5.17 [facility] KanLkacdcrupo0042-83-95 17:00:00* Test Item Value Reference Range Interpretation Comme [facility] Hematocrit (test code = 65617306) 41.9 [facility] CtrMCV (mean corpuscular volume) determination 2024-04-10 17:00:00* Test Item Value Reference Range Interpretation Comme [facility] Mean Corpuscular Volume (shailesh t code = 22136-2) 81.0 [facility] 2024-04-10 17:00:00* Test Item Value Reference Range Interpretation Comme [facility] Mean Corpuscular Hemoglobin (test code = 57261180) 26.1 [facility] (MCHC) [id number] 17:00:00* Test Item Value Reference Range Interpretation Comme [facility] Mean Corpuscular Hemoglobin Concent (test code = 07297513) 32.2 [facility] CtrRBC distribution width coefficient of variation 2024-04-10 17:00:00* Test Item Value Reference Range Interpretation Comme [place] [facility] Distribution Width (test code = 06409159) 15.2 [facility] CtrPlatelet stpse3024-02-81 17:00:00* Test Item Value Reference Range Interpretation Comme [facility] Platelet Count (test code = 65563459) 343 [facility] CtrMean platelet rijtel3328-74-97 17:00:00* Test Item Value Reference Range Interpretation Comme nts Mean Platelet Volume (test c ode = 02432746) 9.3 [facility] CtrNeutrophils seg % uae7402-35-05 17:00:00* Test Item Value Reference Range Interpretation Comme nts Neutrophils (%) (Auto) (test code = 40394-8) 71.4 [facility] CtrAbsolute immature granulocyte brkic3312-09-03 17:00:00* Test Item Value Reference Range Interpretation Comme nts Absolute Immature Granulocyt e (auto (test code = 06061-5) 0.05 [facility] CtrBlood band neutrophils count (number/volume) 2024-04-10 17:00:00* Test Item Value Reference Range Interpretation Comme nts Neutrophils # (Auto) (test c ode = 32341-2) 8.20 [facility] CtrAbsolute lymphocyte deush6726-19-77 17:00:00* Test Item Value Reference Range Interpretation Comme nts Lymphocytes # (Auto) (test c ode = 95406-3) 2.42 [facility] CtrAbsolute basophil whznk1764-38-67 17:00:00* Test Item Value Reference Range Interpretation Comme nts Basophils # (Auto) (test cod e = 98552810) 0[facility]03 [facility] kfmms8635-47-93 17:00:00* Test Item Value Reference Range Interpretation Comme nts Nucleated Red Blood Cells # (test code = 026730441) 0 [facility] CtrCT ABDOMEN PELVIS WO GRHNUCTK1504-64-00 00:27:38 Ordering Physician: LEIGH ROJO Clinical indication: [...] the spine.Multilevel lumbar central canal stenosis is present.[facility] Sgamk2293-02-13 23:13:34* Test Item Value Reference Range Interpretation Comme nts NA (test code = 1217827692) 136 mmol/L 135-145 K (test code = 9393938302) 3.7 mmol/L 3.5-5.0 CL (test code = 7323251262) 106 mmol/L 98-108 CO2 TOTAL (test code = 1133743583) 20 mmol/L 23-31 L AGAP (test code = 2430794656) 10 2-16 BUN (test code = 8001631591) 6 mg/dL 7-23 L GLUCOSE (test code = 1876463374) 149 mg/dL 70-110 H CREATININE (test code = 2160-0) 0.63 mg/dL 0.50-1.04 TOTAL BILI (test code = 2002921769) 0.3 mg/dL 0.1-1.1 CALCIUM (test code = 5542230029) 9.2 mg/dL 8.6-10.6 T PROTEIN (test code = 2140800943) 7.4 g/dL 6.3-8.2 ALBUMIN (test code = 0088724911) 4.3 g/dL 3.5-5.0 ALK PHOS (test code = 4881935769) 74 U/L 34-122 ALTv (test code = 1742-6) 20 U/L 5-35 AST(SGOT) (test code = 3934143114) 22 U/L 13-40 eGFR (test code = 31872-7) 111.6 mL/min/1.73m2 CKD-EPI eGFR (2020). Assuming creatinine has been stable day-to-day for at least three months, the eGFR indicates Category G1 (>= 90 mL/min/1.73 m2) Lab Interpretation (test code = 22047-4) [facility]normal [facility] Hospital[facility], Cugub7892-53-78 23:12:53* Test Item Value Reference Range Interpretation Comme nts LIPASE (test code = 1126067932) 104 U/L 0-220 Lab Interpretation (test cod e = 10057-6) [facility]PO[facility] Hauu5124-51-24 23:01:00* Test Item Value Reference Range Interpretation Comme nts POCT PREG (test code = 1605) Negative On board controls acceptable with C Line (test code = 3574) Yes POCT PREG LOT # (test code = 3575) [id number] POCT PREG TEST DATE ( test code = 3576) Lab Interpretation (test cod e = 28835-7) [facility] with Ruampdwlsuri4921-69-56 23:00:31* Test Item Value Reference Range Interpretation [...] 33.0 g/dL 31.6-35.1 RDW-SD (test code = 80368-0) 45.5 fL 39.0-49.9 RDW-CV (test code = 788-0) 15.3 % 12.0-15.5 PLT (test code = 777-3) 370 166-358 H MPV (test code = 37974-3) 9.3 fL 9.5-12.9 L NRBC/100 WBC (test code = 9093068374) 0.0 0.0-10.0 NRBC x10^3 (test code = 0286715415) See_Comment [Automated messa ge] The system which generated this result transmitted reference range: 10*3/?L. The reference range was not used to interpret this result as normal/abnormal. GRAN MAT (NEUT) % (test code = 770-8) 71.8 % IMM GRAN % (test code = 5984964757) 0.60 % LYMPH % (test code = 736-9) 20.9 % MONO % (test code = 5905-5) 4.9 % EOS % (test code = 713-8) 1.4 % BASO % (test code = 706-2) 0.4 % GRAN MAT x10^3(ANC) (test code = 8480492415) 9.75 10*3/uL 1.88-7.09 H IMM GRAN x10^3 (test code = 4446918368) 0.08 10*3/uL 0.00-0.06 H LYMPH x10^3 (test code = 731-0) 2.83 10*3/uL 1.32-3.29 MONO x10^3 (test code = 742-7) 0.66 10*3/uL 0.33-0.92 EOS x10^3 (test code = 711-2) 0.19 10*3/uL 0.03-0.39 BASO x10^3 (test code = 704-7) 0.05 10*3/uL 0.01-0.07 Lab Interpretation (test code = 29353-3) [facility] PELVIS W ZIECDYRU7320-43-47 05:07:16ORDERING PHYSICIAN:OLIVIA MUSA CLINICAL INFORMATION: ? Abdominal [...] are clear. There are nosuspicious focal osseous lesions.[facility] Complete Metabolic Kkcqn4142-95-61 04:38:59* Test Item Value Reference Range Interpretation Comme nts NA (test code = 4669720698) 138 mmol/L 135-145 K (test code = 4671790202) 3.7 mmol/L 3.5-5.0 CL (test code = 5788944734) 108 mmol/L 98-108 CO2 TOTAL (test code = 7831082232) 22 mmol/L 23-31 L AGAP (test code = 1114607076) 8 2-16 BUN (test code = 0520339669) 12 mg/dL 7-23 GLUCOSE (test code = 9275260714) 98 mg/dL 70-110 CREATININE (test code = 2160-0) 0.62 mg/dL 0.50-1.04 TOTAL BILI (test code = 0762383079) 0.4 mg/dL 0.1-1.1 CALCIUM (test code = 6704545154) 8.9 mg/dL 8.6-10.6 T PROTEIN (test code = 8293763458) 7.1 g/dL 6.3-8.2 ALBUMIN (test code = 5966953868) 3.8 g/dL 3.5-5.0 ALK PHOS (test code = 0227666595) 89 U/L 34-122 ALTv (test code = 1742-6) 17 U/L 5-35 AST(SGOT) (test code = 3005925972) 22 U/L 13-40 eGFR (test code = 45142-8) 112.8 mL/min/1.73m2 CKD-EPI eGFR (2020). Assuming creatinine has been stable day-to-day for at least three months, the eGFR indicates Category G1 (>= 90 mL/min/1.73 m2) Lab Interpretation (test code = 35957-0) [facility]normal [facility], Tsjki6960-09-41 04:38:58* Test Item Value Reference Range Interpretation Comme nts LIPASE (test code = 3084788743) 136 U/L 0-220 Lab Interpretation (test cod e = 55478-6) Normal [facility] with Pqiinnczazhc9400-62-51 04:19:14* Test Item Value Reference Range Interpretation [...] 32.2 g/dL 31.6-35.1 RDW-SD (test code = 47125-5) 50.2 fL 39.0-49.9 H RDW-CV (test code = 788-0) 17.3 % 12.0-15.5 H PLT (test code = 777-3) 377 166-358 H MPV (test code = 86217-3) 9.4 fL 9.5-12.9 L NRBC/100 WBC (test code = 2310623208) 0.0 0.0-10.0 NRBC x10^3 (test code = 8882490319) See_Comment [Automated messa ge] The system which generated this result transmitted reference range: 10*3/?L. The reference range was not used to interpret this result as normal/abnormal. GRAN MAT (NEUT) % (test code = 770-8) 65.3 % IMM GRAN % (test code = 2328865038) 0.40 % LYMPH % (test code = 736-9) 26.1 % MONO % (test code = 5905-5) 6.2 % EOS % (test code = 713-8) 1.6 % BASO % (test code = 706-2) 0.4 % GRAN MAT x10^3(ANC) (test code = 2461467614) 7.33 10*3/uL 1.88-7.09 H IMM GRAN x10^3 (test code = 9718229972) 0.04 10*3/uL 0.00-0.06 LYMPH x10^3 (test code = 731-0) 2.93 10*3/uL 1.32-3.29 MONO x10^3 (test code = 742-7) 0.70 10*3/uL 0.33-0.92 EOS x10^3 (test code = 711-2) 0.18 10*3/uL 0.03-0.39 BASO x10^3 (test code = 704-7) 0.05 10*3/uL 0.01-0.07 Lab Interpretation (test code = 15861-7) Abnormal [facility] QPPX1175-14-65 03:40:00* Test Item Value Reference Range Interpretation Comme nts POCT PREG (test code = 1605) Negative On board controls acceptable with C Line (test code = 3574) Yes POCT PREG LOT # (test code = 3575) [id number] POCT PREG TEST DATE ( test code = 3576) 2024-10-13 Lab Interpretation (test cod e = 33970-3) [facility] AEA9538-04-10 04:35:04Ordering physician: ROBERTO RICHARDS INDICATION: Abdominal pain COMPARISON: CT of the abdomen and pelv is dated 03/09/2023 FINDINGS: Supine AP view of the abdomen and pelvis. There is no bowelobstruction or generalized constipation.[facility] Jith3110-90-35 02:30:00* Test Item Value Reference Range Interpretation Comme nts POCT PREG (test code = 1605) Negative On board controls acceptable with C Line (test code = 3574) Yes POCT PREG LOT # (test code = 3575) [id number] POCT PREG TEST DATE ( test code = 3576) 2024-09-15 Lab Interpretation (test cod e = 67473-3) [facility] WITH TRSP8348-32-39 00:05:06* Test Item Value Reference Range Interpretation Comme nts WBC (test code = 6690-2) 12.06 See_Comment H [Automated messa ge] The system which generated this result transmitted reference range: 4.30 - 11.10 10*3/?L. The reference range was not used to interpret this result as normal/abnormal. RBC (test code = 789-8) 5.18 See_Comment [Automated Tonara[employer] ge] The system which generated this result [...] 34.2 g/dL 31.6-35.1 RDW-SD (test code = 71100-7) 41.5 fL 39.0-49.9 RDW-CV (test code = 788-0) 14.5 % 12.0-15.5 PLT (test code = 777-3) 384 See_Comment H [Automated [employer]] The system which generated this result transmitted reference range: 166 - 358 10*3/?L. The reference range was not used to interpret this result as normal/abnormal. MPV (test code = 16539-4) 9.6 fL 9.5-12.9 GRAN MAT (NEUT) % (test code = 770-8) 66.0 % IMM GRAN % (test code = 7038580908) 0.50 % LYMPH % (test code = 736-9) 27.4 % MONO % (test code = 5905-5) 4.6 % EOS % (test code = 713-8) 1.1 % BASO % (test code = 706-2) 0.4 % GRAN MAT x10^3(ANC) (test code = 0988147648) 7.96 10*3/uL 1.88-7.09 H IMM GRAN x10^3 (test code = 0588191927) 0.06 10*3/uL 0.00-0.06 LYMPH x10^3 (test code = 731-0) 3.30 10*3/uL 1.32-3.29 H MONO x10^3 (test code = 742-7) 0.56 10*3/uL 0.33-0.92 EOS x10^3 (test code = 711-2) 0.13 10*3/uL 0.03-0.39 BASO x10^3 (test code = 704-7) 0.05 10*3/uL 0.01-0.07 Lab Interpretation (test code = 08054-8) [facility]OL[facility] PANEL (82657)2023-05-09 23:27:13* Test Item Value Reference Range Interpretation Comme nts NA (test code = 7588194789) 137 mmol/L 135-145 K (test code = 4850859336) 3.3 mmol/L 3.5-5.0 L CL (test code = 0973028115) 103 mmol/L 98-108 CO2 TOTAL (test code = 1314805343) 20 mmol/L 23-31 L AGAP (test code = 1466040336) 14 2-16 BUN (test code = 8193706556) 5 mg/dL 7-23 L GLUCOSE (test code = 4892699118) 146 mg/dL 70-110 H CREATININE (test code = 2092597489) 0.60 mg/dL 0.50-1.04 TOTAL BILI (test code = 6875718946) 0.3 mg/dL 0.1-1.1 CALCIUM (test code = 2817089347) 9.3 mg/dL 8.6-10.6 T PROTEIN (test code = 0308408509) 7.9 g/dL 6.3-8.2 ALBUMIN (test code = 9509601907) 4.4 g/dL 3.5-5.0 ALK PHOS (test code = 7360581203) 105 U/L 34-122 ALTv (test code = 1742-6) 38 U/L 5-35 H AST(SGOT) (test code = 8617951791) 21 U/L 13-40 eGFR (test code = 83265-0) 113.7 mL/min/1.73m2 CKD-EPI eGFR (2020). Assuming creatinine has been stable day-to-day for at least three months, the eGFR indicates Category G1 (>= 90 mL/min/1.73 m2) Lab Interpretation (test code = 08096-8) [facility]IPASE2023-[facility]-02 23:27:13* Test Item Value Reference Range Interpretation Comme nts LIPASE (test code = 6340504207) 142 U/L 0-220 Lab Interpretation (test cod e = 80401-0) Normal [facility]OLIC PANEL (99085)2023-04-30 23:41:47* Test Item Value Reference Range Interpretation Comme nts NA (test code = 0595816314) 139 mmol/L 135-145 K (test code = 0243806845) 3.3 mmol/L 3.5-5.0 L CL (test code = 1309483775) 105 mmol/L 98-108 CO2 TOTAL (test code = 4691675840) 20 mmol/L 23-31 L AGAP (test code = 7709340684) 14 2-16 BUN (test code = 5600766720) 6 mg/dL 7-23 L GLUCOSE (test code = 8409260171) 119 mg/dL 70-110 H CREATININE (test code = 7701493454) 0.59 mg/dL 0.50-1.04 TOTAL BILI (test code = 9016299526) 0.3 mg/dL 0.1-1.1 CALCIUM (test code = 1962663067) 9.7 mg/dL 8.6-10.6 T PROTEIN (test code = 0678725384) 7.6 g/dL 6.3-8.2 ALBUMIN (test code = 7097743024) 4.2 g/dL 3.5-5.0 ALK PHOS (test code = 6011903312) 78 U/L 34-122 ALTv (test code = 1742-6) 24 U/L 5-35 AST(SGOT) (test code = 8099259532) 24 U/L 13-40 eGFR (test code = 4956604822) 110.7 mL/min/1.73m2 DARWIN (test code = DARWIN) [...] imaging tests). Lab Interpretation (test code = 45092-0) Abnormal [facility] WITH HQTX4840-61-88 23:29:07* Test Item Value Reference Range Interpretation Comme nts WBC (test code = 6690-2) 11.56 See_Comment H [Automated UUCUN] The system which generated this result transmitted reference range: 4.30 - 11.10 10*3/?L. The reference range was not used to interpret this result as normal/abnormal. RBC (test code = 789-8) 5.02 See_Comment [Automated UUCUN] The system which generated this result transmitted [...] 33.7 g/dL 31.6-35.1 RDW-SD (test code = 64425-7) 41.5 fL 39.0-49.9 RDW-CV (test code = 788-0) 14.3 % 12.0-15.5 PLT (test code = 777-3) 335 See_Comment [Automated messa ge] The system which generated this result transmitted reference range: 166 - 358 10*3/?L. The reference range was not used to interpret this result as normal/abnormal. MPV (test code = 52793-7) 9.7 fL 9.5-12.9 NRBC/100 WBC (test code = 9596024851) 0.0 See_Comment [Automated [employer] ssage] The system which generated this result transmitted reference range: 0.0 - 10.0 /100 WBCs. The reference range was not used to interpret this result as normal/abnormal. NRBC x10^3 (test code = 2705148789) See_Comment [Automated Tonara[employer] ge] The system which generated this result transmitted reference range: 10*3/?L. The reference range was not used to interpret this result as normal/abnormal. GRAN MAT (NEUT) % (test code = 770-8) 65.7 % IMM GRAN % (test code = 3153763710) 0.50 % LYMPH % (test code = 736-9) 25.4 % MONO % (test code = 5905-5) 6.7 % EOS % (test code = 713-8) 1.2 % BASO % (test code = 706-2) 0.5 % GRAN MAT x10^3(ANC) (test code = 4465908727) 7.59 10*3/uL 1.88-7.09 H IMM GRAN x10^3 (test code = 2903509309) 0.06 10*3/uL 0.00-0.06 LYMPH x10^3 (test code = 731-0) 2.94 10*3/uL 1.32-3.29 MONO x10^3 (test code = 742-7) 0.77 10*3/uL 0.33-0.92 EOS x10^3 (test code = 711-2) 0.14 10*3/uL 0.03-0.39 BASO x10^3 (test code = 704-7) 0.06 10*3/uL 0.01-0.07 Lab Interpretation (test code = 02327-2) [facility] NEMK7358-40-90 22:59:00* Test Item Value Reference Range Interpretation Comme nts POCT PREG (test code = 1605) Negative On board controls acceptable with C Line (test code = 3574) Yes POCT PREG LOT # (test code = 3575) [id number] POCT PREG TEST DATE ( test code = 3576) 07/10/2024 Lab Interpretation (test cod e = 70923-4) [facility] [id number] 02:36:34* Test Item Value Reference Range Interpretation Comme nts TROPONIN I (test code = 7465314484) 0.000 ng/mL <=0.034 DARWIN (test code = [...] of biotin. Lab Interpretation (test code = 37885-7) Normal [facility] HospitalN-TERMINAL VHO-AST8572-92-11 02:34:17* Test Item Value Reference Range Interpretation Comme nts NT-proBNP (test code = 66751-1) 40 pg/mL <=125 Lab Interpretation (test cod e = 37523-9) Normal [facility] HospitalACTIVATED PARTIAL THRMPLAS TDI8686-51-90 02:33:37* Test Item Value Reference Range Interpretation [...] 30 seconds. Lab Interpretation (test code = 96073-7) Normal [facility] HospitalPROTHROMBIN TIME / FQK2024-11-08 02:31:36* Test Item Value Reference Range Interpretation [...] the indications. Lab Interpretation (test code = 93368-8) [facility] MET[facility]OLIC PANEL (67135)2023-04-17 02:24:56* Test Item Value Reference Range Interpretation Comme nts NA (test code = 0116027778) 142 mmol/L 135-145 K (test code = 3809816974) 3.1 mmol/L 3.5-5.0 L CL (test code = 7667451061) 108 mmol/L 98-108 CO2 TOTAL (test code = 0742681533) 20 mmol/L 23-31 L AGAP (test code = 4924464890) 14 2-16 BUN (test code = 3348962004) 4 mg/dL 7-23 L GLUCOSE (test code = 0043452991) 107 mg/dL 70-110 CREATININE (test code = 2906309006) 0.61 mg/dL 0.50-1.04 TOTAL BILI (test code = 4168476692) 0.2 mg/dL 0.1-1.1 CALCIUM (test code = 5534741680) 9.1 mg/dL 8.6-10.6 T PROTEIN (test code = 0368508260) 7.0 g/dL 6.3-8.2 ALBUMIN (test code = 6039261101) 3.9 g/dL 3.5-5.0 ALK PHOS (test code = 2424136134) 69 U/L 34-122 ALTv (test code = 1742-6) 21 U/L 5-35 AST(SGOT) (test code = 8870256715) 21 U/L 13-40 eGFR (test code = 3038008000) 106.5 mL/min/1.73m2 DARWIN (test code = DARWIN) [...] imaging tests). Lab Interpretation (test code = 08356-1) [facility]2023-10-11 02:24:56* Test Item Value Reference Range Interpretation Comme nts LIPASE (test code = 5917305852) 104 U/L 0-220 Lab Interpretation (test cod e = 64563-8) Normal [facility] WITH RELU6521-12-91 02:13:31* Test Item Value Reference Range Interpretation Comme nts WBC (test code = 6690-2) 10.74 See_Comment [Automated messa ge] The system which generated this result transmitted reference range: 4.30 - 11.10 10*3/?L. The reference range was not used to interpret this result as normal/abnormal. RBC (test code = 789-8) 4.75 See_Comment [Automated Tonara[employer] ge] The system which generated this result [...] 34.5 g/dL 31.6-35.1 RDW-SD (test code = 23434-8) 39.1 fL 39.0-49.9 RDW-CV (test code = 788-0) 13.5 % 12.0-15.5 PLT (test code = 777-3) 324 See_Comment [Automated Tonara[employer] ge] The system which generated this result transmitted reference range: 166 - 358 10*3/?L. The reference range was not used to interpret this result as normal/abnormal. MPV (test code = 53001-9) 9.3 fL 9.5-12.9 L NRBC/100 WBC (test code = 3808061067) 0.0 See_Comment [Automated [employer] ssage] The system which generated this result transmitted reference range: 0.0 - 10.0 /100 WBCs. The reference range was not used to interpret this result as normal/abnormal. NRBC x10^3 (test code = 1244999354) See_Comment [Automated Tonara[employer] ge] The system which generated this result transmitted reference range: 10*3/?L. The reference range was not used to interpret this result as normal/abnormal. GRAN MAT (NEUT) % (test code = 770-8) 65.2 % IMM GRAN % (test code = 9025663696) 0.40 % LYMPH % (test code = 736-9) 26.5 % MONO % (test code = 5905-5) 5.8 % EOS % (test code = 713-8) 1.7 % BASO % (test code = 706-2) 0.4 % GRAN MAT x10^3(ANC) (test code = 9356466702) 7.01 10*3/uL 1.88-7.09 IMM GRAN x10^3 (test code = 7931303735) 0.04 10*3/uL 0.00-0.06 LYMPH x10^3 (test code = 731-0) 2.85 10*3/uL 1.32-3.29 MONO x10^3 (test code = 742-7) 0.62 10*3/uL 0.33-0.92 EOS x10^3 (test code = 711-2) 0.18 10*3/uL 0.03-0.39 BASO x10^3 (test code = 704-7) 0.04 10*3/uL 0.01-0.07 Lab Interpretation (test code = 98298-7) [facility]PO[facility] AZIN0492-90-98 02:11:00* Test Item Value Reference Range Interpretation Comme nts POCT PREG (test code = 1605) Negative On board controls acceptable with C Line (test code = 3574) Yes POCT PREG LOT # (test code = 3575) [id number] POCT PREG TEST DATE ( test code = 3576) 2024-09-04 Lab Interpretation (test cod e = 11692-9) [facility]TR[facility] [id number] 23:59:14* Test Item Value Reference Range Interpretation Comme nts TROPONIN I (test code = 6616475063) 0.000 ng/mL <=0.034 DARWIN (test code = [...] of biotin. Lab Interpretation (test code = 24254-3) Normal [facility]. METABOLIC PANEL (87674)2023-04-08 23:47:52* Test Item Value Reference Range Interpretation Comme nts NA (test code = 5996977910) 138 mmol/L 135-145 K (test code = 1828843342) 3.4 mmol/L 3.5-5.0 L CL (test code = 6534777921) 103 mmol/L 98-108 CO2 TOTAL (test code = 0140152189) 22 mmol/L 23-31 L AGAP (test code = 8512750957) 13 2-16 BUN (test code = 8818370959) 6 mg/dL 7-23 L GLUCOSE (test code = 8378698528) 106 mg/dL 70-110 CREATININE (test code = 3631971052) 0.91 mg/dL 0.50-1.04 TOTAL BILI (test code = 9589406477) 0.2 mg/dL 0.1-1.1 CALCIUM (test code = 0226888469) 8.7 mg/dL 8.6-10.6 T PROTEIN (test code = 2879441981) 7.4 g/dL 6.3-8.2 ALBUMIN (test code = 6104171758) 4.1 g/dL 3.5-5.0 ALK PHOS (test code = 8814384840) 71 U/L 34-122 ALTv (test code = 1742-6) 28 U/L 5-35 AST(SGOT) (test code = 8043580377) 28 U/L 13-40 eGFR (test code = 4785847744) 67.2 mL/min/1.73m2 DARWIN (test code = DARWIN) [...] imaging tests). Lab Interpretation (test code = 72570-1) [facility]UM2023-[facility] 23:47:52* Test Item Value Reference Range Interpretation Comme nts MAGNESIUM (test code = 0978635089) 2.0 mg/dL 1.7-2.4 Lab Interpretation (test cod e = 55606-4) [facility]23[facility] 23:47:52* Test Item Value Reference Range Interpretation Comme nts LIPASE (test code = 7456285088) 74 U/L 0-220 Lab Interpretation (test cod e = 50621-2) [facility] WITH [id number] 23:36:30* Test Item Value Reference Range Interpretation Comme nts WBC (test code = 6690-2) 9.95 See_Comment [Automated [employer]] The system which generated this result transmitted [...] 34.5 g/dL 31.6-35.1 RDW-SD (test code = 80211-1) 39.3 fL 39.0-49.9 RDW-CV (test code = 788-0) 13.6 % 12.0-15.5 PLT (test code = 777-3) 305 See_Comment [Automated messa ge] The system which generated this result transmitted reference range: 166 - 358 10*3/?L. The reference range was not used to interpret this result as normal/abnormal. MPV (test code = 31143-7) 9.6 fL 9.5-12.9 NRBC/100 WBC (test code = 3673462573) 0.0 See_Comment [Automated me ssage] The system which generated this result transmitted reference range: 0.0 - 10.0 /100 WBCs. The reference range was not used to interpret this result as normal/abnormal. NRBC x10^3 (test code = 6242488101) See_Comment [Automated messa ge] The system which generated this result transmitted reference range: 10*3/?L. The reference range was not used to interpret this result as normal/abnormal. GRAN MAT (NEUT) % (test code = 770-8) 66.5 % IMM GRAN % (test code = 5203418463) 0.30 % LYMPH % (test code = 736-9) 25.3 % MONO % (test code = 5905-5) 5.2 % EOS % (test code = 713-8) 2.3 % BASO % (test code = 706-2) 0.4 % GRAN MAT x10^3(ANC) (test code = 0411582138) 6.61 10*3/uL 1.88-7.09 IMM GRAN x10^3 (test code = 9732143862) 0.03 10*3/uL 0.00-0.06 LYMPH x10^3 (test code = 731-0) 2.52 10*3/uL 1.32-3.29 MONO x10^3 (test code = 742-7) 0.52 10*3/uL 0.33-0.92 EOS x10^3 (test code = 711-2) 0.23 10*3/uL 0.03-0.39 BASO x10^3 (test code = 704-7) 0.04 10*3/uL 0.01-0.07 Lab Interpretation (test code = 87642-1) Abnormal [facility] [id number] 02:51:00* Test Item Value Reference Range Interpretation Comme nts POCT PREG (test code = 1605) Negative On board controls acceptable with C Line (test code = 3574) Yes POCT PREG LOT # (test code = 3575) [id number] POCT PREG TEST DATE ( test code = 3576) 07/10/2024 Lab Interpretation (test cod e = 41618-7) Normal [facility] [id number] 03:26:00* Test Item Value Reference Range Interpretation Comme nts POCT PREG (test code = 1605) Negative On board controls acceptable with C Line (test code = 3574) Yes POCT PREG LOT # (test code = 3575) [id number] POCT PREG TEST DATE ( test code = 3576) Lab Interpretation (test cod e = 99849-6) [facility] Test Item Value Reference Range Interpretation Comme nts LIPASE (test code = 5059829185) 2049 U/L 0-220 H Lab Interpretation (test cod e = 60085-1) Abnormal [facility] WITH [id number] 22:30:10* Test Item Value Reference Range Interpretation [...] 34.6 g/dL 31.6-35.1 RDW-SD (test code = 97397-0) 42.7 fL 39.0-49.9 RDW-CV (test code = 788-0) 14.6 % 12.0-15.5 PLT (test code = 777-3) 331 See_Comment [Automated messa ge] The system which generated this result transmitted reference range: 166 - 358 10*3/?L. The reference range was not used to interpret this result as normal/abnormal. MPV (test code = 20265-3) 9.7 fL 9.5-12.9 NRBC/100 WBC (test code = 2725506905) 0.0 See_Comment [Automated [employer] ssage] The system which generated this result transmitted reference range: 0.0 - 10.0 /100 WBCs. The reference range was not used to interpret this result as normal/abnormal. NRBC x10^3 (test code = 8625168386) See_Comment [Automated messa ge] The system which generated this result transmitted reference range: 10*3/?L. The reference range was not used to interpret this result as normal/abnormal. GRAN MAT (NEUT) % (test code = 770-8) 65.7 % IMM GRAN % (test code = 7349074555) 0.50 % LYMPH % (test code = 736-9) 26.5 % MONO % (test code = 5905-5) 5.4 % EOS % (test code = 713-8) 1.5 % BASO % (test code = 706-2) 0.4 % GRAN MAT x10^3(ANC) (test code = 7150846365) 8.05 10*3/uL 1.88-7.09 H IMM GRAN x10^3 (test code = 1257855306) 0.06 10*3/uL 0.00-0.06 LYMPH x10^3 (test code = 731-0) 3.24 10*3/uL 1.32-3.29 MONO x10^3 (test code = 742-7) 0.66 10*3/uL 0.33-0.92 EOS x10^3 (test code = 711-2) 0.18 10*3/uL 0.03-0.39 BASO x10^3 (test code = 704-7) 0.05 10*3/uL 0.01-0.07 Lab Interpretation (test code = 49846-4) [facility]69247[facility]-15 22:27:47* Test Item Value Reference Range Interpretation Comme nts NA (test code = 1539495722) 138 mmol/L 135-145 K (test code = 4177889423) 3.7 mmol/L 3.5-5.0 CL (test code = 9674650155) 105 mmol/L 98-108 CO2 TOTAL (test code = 9047560456) 23 mmol/L 23-31 AGAP (test code = 9894295515) 10 2-16 BUN (test code = 6168591597) 6 mg/dL 7-23 L GLUCOSE (test code = 7879902251) 92 mg/dL 70-110 CREATININE (test code = 6553069719) 0.77 mg/dL 0.50-1.04 TOTAL BILI (test code = 7296370464) 0.7 mg/dL 0.1-1.1 CALCIUM (test code = 8863738080) 9.0 mg/dL 8.6-10.6 T PROTEIN (test code = 3934695299) 7.5 g/dL 6.3-8.2 ALBUMIN (test code = 1221097003) 4.0 g/dL 3.5-5.0 ALK PHOS (test code = 1373472897) 101 U/L 34-122 ALTv (test code = 1742-6) 25 U/L 5-35 AST(SGOT) (test code = 3413947093) 36 U/L 13-40 eGFR (test code = 0875712849) 81.8 mL/min/1.73m2 DARWIN (test code = DARWIN) [...] imaging tests). Lab Interpretation (test code = 90194-4) [facility]9243[facility]73-45 20:56:28* Test Item Value Reference Range Interpretation Comments D-DIMER (test code = 5188387579) 0.44 See_Comment H [Automated message] The system [...] a diagnosis. Lab Interpretation (test code = 73151-6) Abnormal [facility] [id number] 01:15:16* Test Item Value Reference Range Interpretation Comments TROPONIN I (test code = 0883313235) 0.001 ng/mL See_Comment [Automated message] The system [...] of biotin. Lab Interpretation (test code = 27075-2) Normal [facility] [id number] 22:52:31* Test Item Value Reference Range Interpretation Comments TROPONIN I (test code = 9354216697) 0.001 ng/mL See_Comment [Automated message] The system [...] of biotin. Lab Interpretation (test code = 49257-6) [facility] [id number] 22:49:33* Test Item Value Reference Range Interpretation Comme nts NT-proBNP (test code = 3532003452) 145 pg/mL See_Comment H [Automated message] The system which generated this result transmitted reference range: <=125. The reference range was not used to interpret this result as normal/abnormal. DARWIN (test code = DARWIN) Biotin has been reported to cause a negative bias, interpret results relative to patient's use of biotin. Lab Interpretation (test code = 16362-7) Abnormal [facility] METABOLIC PANEL (NA, K, CL, CO2, GLUCOSE, BUN, CREATININE, CA)2022-01-09 22:40:32* Test Item Value Reference Range Interpretation Comme nts NA (test code = 7071778539) 142 mmol/L 135-145 K (test code = 3755022579) 3.3 mmol/L 3.5-5.0 L CL (test code = 1575360158) 109 mmol/L 98-108 H CO2 TOTAL (test code = 2663497062) 22 mmol/L 23-31 L AGAP (test code = 8352976386) 2-16 BUN (test code = 8939655469) 9 mg/dL 7-23 GLUCOSE (test code = 7885686558) 116 mg/dL 70-110 H CREATININE (test code = 3572519917) 0.69 mg/dL 0.50-1.04 CALCIUM (test code = 8779860659) 9.2 mg/dL 8.6-10.6 eGFR (test code = 4819463909) mL/min/1.73m2 DARWIN (test code = DARWIN) Association [...] imaging tests). Lab Interpretation (test code = 59290-6) Abnormal [facility] WITH [id number] 22:29:09* Test Item Value Reference Range Interpretation Comme nts WBC (test code = 6690-2) See_Comment [[employer]] The system which generated this result transmitted reference range: 4.30 - 11.10 10*3/?L. The reference range was not used to interpret this result as normal/abnormal. RBC (test code = 789-8) See_Comment [Automated [employer]UCUN] The system which generated this result transmitted [...] 34.4 g/dL 31.6-35.1 RDW-SD (test code = 09608-4) 40.7 fL 39.0-49.9 RDW-CV (test code = 788-0) 14.1 % 12.0-15.5 PLT (test code = 777-3) See_Comment [Automated messa ge] The system which generated this result transmitted reference range: 166 - 358 10*3/?L. The reference range was not used to interpret this result as normal/abnormal. MPV (test code = 92463-7) 9.6 fL 9.5-12.9 NRBC/100 WBC (test code = 5230635029) See_Comment [Automated [employer] ssage] The system which generated this result transmitted reference range: 0.0 - 10.0 /100 WBCs. The reference range was not used to interpret this result as normal/abnormal. NRBC x10^3 (test code = 1836699673) <0.01 See_Comment [Automated messa ge] The system which generated this result transmitted reference range: 10*3/?L. The reference range was not used to interpret this result as normal/abnormal. GRAN MAT (NEUT) % (test code = 770-8) 54.7 % IMM GRAN % (test code = 4302527557) 0.40 % LYMPH % (test code = 736-9) 33.8 % MONO % (test code = 5905-5) 7.1 % EOS % (test code = 713-8) 3.3 % BASO % (test code = 706-2) 0.7 % GRAN MAT x10^3(ANC) (test code = 5569520846) 4.87 10*3/uL 1.88-7.09 IMM GRAN x10^3 (test code = 7411195822) 0.04 10*3/uL 0.00-0.06 LYMPH x10^3 (test code = 731-0) 3.01 10*3/uL 1.32-3.29 MONO x10^3 (test code = 742-7) 0.63 10*3/uL 0.33-0.92 EOS x10^3 (test code = 711-2) 0.29 10*3/uL 0.03-0.39 BASO x10^3 (test code = 704-7) 0.06 10*3/uL 0.01-0.07 Lab Interpretation (test code = 23283-1) [facility] [id number] 06:45:45* Test Item Value Reference Range Interpretation Comments TROPONIN I (test code = 6587986259) 0.000 ng/mL See_Comment [Automated message] The system [...] of biotin. Lab Interpretation (test code = 51539-4) [facility] STIM[facility]ATING [id number] 05:00:55 * Test Item Value Reference Range Interpretation Comme nts TSH (test code = 6223465623) See_Comment [Automated [employer]] The system which generated this result transmitted reference range: 0.45 - 4.70 mIU/L. The reference range was not used to interpret this result as normal/abnormal. Lab Interpretation (test code = 89542-8) [facility] [id number] 04:47:50* Test Item Value Reference Range Interpretation Comme nts FREE T4 (test code = 4160715828) See_Comment [Automated [employer]] The system which generated this result transmitted reference range: 0.78 - 2.20 ng/dL:. The reference range was not used to interpret this result as normal/abnormal. Lab Interpretation (test code = 00800-1) [facility] [id number] 04:47:10* Test Item Value Reference Range Interpretation Comme nts FREE T3 (test code = 2481059660) 4.37 pg/mL 2.77-5.27 Lab Interpretation (test cod e = 07148-6) [facility] [id number] 04:42:07* Test Item Value Reference Range Interpretation Comments TROPONIN I (test code = 1361686011) 0.001 ng/mL See_Comment [Automated message] The system [...] of biotin. Lab Interpretation (test code = 97128-2) [facility] (46764)2021-12-14 04:30:28* Test Item Value Reference Range Interpretation Comme nts NA (test code = 1380111542) 141 mmol/L 135-145 K (test code = 9411708570) 3.6 mmol/L 3.5-5.0 CL (test code = 6468169376) 111 mmol/L 98-108 H CO2 TOTAL (test code = 2133727137) 19 mmol/L 23-31 L AGAP (test code = 2850386456) 2-16 BUN (test code = 3378529047) 15 mg/dL 7-23 GLUCOSE (test code = 1949224809) 113 mg/dL 70-110 H CREATININE (test code = 1430739023) 1.05 mg/dL 0.50-1.04 H TOTAL BILI (test code = 4629405479) 0.2 mg/dL 0.1-1.1 CALCIUM (test code = 6927144294) 9.8 mg/dL 8.6-10.6 T PROTEIN (test code = 6221218941) 6.8 g/dL 6.3-8.2 ALBUMIN (test code = 5471299462) 4.2 g/dL 3.5-5.0 ALK PHOS (test code = 8427891732) 73 U/L 34-122 ALTv (test code = 1742-6) 16 U/L 5-35 AST(SGOT) (test code = 8300368419) 19 U/L 13-40 eGFR (test code = 8781802036) mL/min/1.73m2 DARWIN (test code = DARWIN) Association [...] imaging tests). Lab Interpretation (test code = 61942-6) [facility] 04:29:48* Test Item Value Reference Range Interpretation Comme nts LIPASE (test code = 9446284876) 225 U/L 0-220 H Lab Interpretation (test cod e = 25728-0) [facility]POCT [id number] 04:20:00* Test Item Value Reference Range Interpretation Comme nts POCT PREG (test code = 1605) negative On board controls acceptable with C Line (test code = 3574) present POCT PREG LOT # (test code = 3575) [id number] POCT PREG TEST DATE ( test code = 3576) 2023-05-07 Lab Interpretation (test cod e = 63071-4) Normal [facility] WITH [id number] 04:01:25* Test Item Value Reference Range Interpretation [...] 34.3 g/dL 31.6-35.1 RDW-SD (test code = 50065-7) 39.5 fL 39.0-49.9 RDW-CV (test code = 788-0) 13.6 % 12.0-15.5 PLT (test code = 777-3) See_Comment [Automated messa ge] The system which generated this result transmitted reference range: 166 - 358 10*3/?L. The reference range was not used to interpret this result as normal/abnormal. MPV (test code = 45831-1) 9.9 fL 9.5-12.9 NRBC/100 WBC (test code = 3161895541) See_Comment [Automated me ssage] The system which generated this result transmitted reference range: 0.0 - 10.0 /100 WBCs. The reference range was not used to interpret this result as normal/abnormal. NRBC x10^3 (test code = 1699505144) <0.01 See_Comment [Automated messa ge] The system which generated this result transmitted reference range: 10*3/?L. The reference range was not used to interpret this result as normal/abnormal. GRAN MAT (NEUT) % (test code = 770-8) 51.5 % IMM GRAN % (test code = 1477041869) 0.50 % LYMPH % (test code = 736-9) 35.8 % MONO % (test code = 5905-5) 9.4 % EOS % (test code = 713-8) 2.2 % BASO % (test code = 706-2) 0.6 % GRAN MAT x10^3(ANC) (test code = 5644893874) 5.37 10*3/uL 1.88-7.09 IMM GRAN x10^3 (test code = 3859361607) 0.05 10*3/uL 0.00-0.06 LYMPH x10^3 (test code = 731-0) 3.73 10*3/uL 1.32-3.29 H MONO x10^3 (test code = 742-7) 0.98 10*3/uL 0.33-0.92 H EOS x10^3 (test code = 711-2) 0.23 10*3/uL 0.03-0.39 BASO x10^3 (test code = 704-7) 0.06 10*3/uL 0.01-0.07 Lab Interpretation (test code = 85227-7) [facility]JOAN [id number] 04:04:13* Test Item Value Reference Range Interpretation Comments TROPONIN I (test code = 7361871590) 0.001 ng/mL See_Comment [Automated message] The system [...] of biotin. Lab Interpretation (test code = 13575-5) [facility]PO[facility] [id number] 02:56:00* Test Item Value Reference Range Interpretation Comme nts POCT PREG (test code = 1605) negative On board controls acceptable with C Line (test code = 3574) present POCT PREG LOT # (test code = 3575) [id number] POCT PREG TEST DATE ( test code = 3576) 2023-04-06 Lab Interpretation (test cod e = 06535-6) [facility] [id number] 02:15:30* Test Item Value Reference Range Interpretation Comments TROPONIN I (test code = 4496938845) 0.000 ng/mL See_Comment [Automated message] The system [...] of biotin. Lab Interpretation (test code = 96421-2) [facility] [id number] 02:12:14* Test Item Value Reference Range Interpretation Comme nts NT-proBNP (test code = 8731841015) 109 pg/mL See_Comment [Automated message] The system which generated this result transmitted reference range: <=125. The reference range was not used to interpret this result as normal/abnormal. DARWIN (test code = DARWIN) Biotin has been reported to cause a negative bias, interpret results relative to patient's use of biotin. Lab Interpretation (test code = 40504-5) Normal [facility]. METABOLIC PANEL (46167)2021-11-12 02:04:12* Test Item Value Reference Range Interpretation Comme nts NA (test code = 7484400185) 140 mmol/L 135-145 K (test code = 6972641829) 4.0 mmol/L 3.5-5.0 CL (test code = 1685061549) 111 mmol/L 98-108 H CO2 TOTAL (test code = 2185629833) 17 mmol/L 23-31 L AGAP (test code = 5947846262) 2-16 BUN (test code = 2588730918) 9 mg/dL 7-23 GLUCOSE (test code = 1044934267) 105 mg/dL 70-110 CREATININE (test code = 3108217430) 0.72 mg/dL 0.50-1.04 TOTAL BILI (test code = 1629447402) 0.4 mg/dL 0.1-1.1 CALCIUM (test code = 3262562661) 9.3 mg/dL 8.6-10.6 T PROTEIN (test code = 2436754804) 6.6 g/dL 6.3-8.2 ALBUMIN (test code = 8819197292) 4.0 g/dL 3.5-5.0 ALK PHOS (test code = 0200643939) 70 U/L 34-122 ALTv (test code = 1742-6) 19 U/L 5-35 AST(SGOT) (test code = 1019405748) 21 U/L 13-40 eGFR (test code = 6365762940) mL/min/1.73m2 DARWIN (test code = DARWIN) Association [...] imaging tests). Lab Interpretation (test code = 24140-1) [facility] 02:03:32* Test Item Value Reference Range Interpretation Comme nts LIPASE (test code = 0598883160) 173 U/L 0-220 Lab Interpretation (test cod e = 02790-1) [facility] WITH [id number] 01:43:53* Test Item Value Reference Range Interpretation Comme nts WBC (test code = 6690-2) See_Comment [Automated [employer]] The system which generated this result transmitted reference range: 4.30 - 11.10 10*3/?L. The reference range was not used to interpret this result as normal/abnormal. RBC (test code = 789-8) See_Comment [Automated [employer]] The system which generated this result transmitted [...] 33.7 g/dL 31.6-35.1 RDW-SD (test code = 02256-2) 41.3 fL 39.0-49.9 RDW-CV (test code = 788-0) 14.3 % 12.0-15.5 PLT (test code = 777-3) See_Comment [Automated messa ge] The system which generated this result transmitted reference range: 166 - 358 10*3/?L. The reference range was not used to interpret this result as normal/abnormal. MPV (test code = 44512-3) 9.7 fL 9.5-12.9 NRBC/100 WBC (test code = 1661949089) See_Comment [Automated [employer]age] The system which generated this result transmitted reference range: 0.0 - 10.0 /100 WBCs. The reference range was not used to interpret this result as normal/abnormal. NRBC x10^3 (test code = 6194053822) <0.01 See_Comment [Automated [employer]] The system which generated this result transmitted reference range: 10*3/?L. The reference range was not used to interpret this result as normal/abnormal. GRAN MAT (NEUT) % (test code = 770-8) 62.6 % IMM GRAN % (test code = 0637802869) 0.50 % LYMPH % (test code = 736-9) 27.0 % MONO % (test code = 5905-5) 6.5 % EOS % (test code = 713-8) 2.9 % BASO % (test code = 706-2) 0.5 % GRAN MAT x10^3(ANC) (test code = 1073086348) 6.30 10*3/uL 1.88-7.09 IMM GRAN x10^3 (test code = 5952374288) 0.05 10*3/uL 0.00-0.06 LYMPH x10^3 (test code = 731-0) 2.71 10*3/uL 1.32-3.29 MONO x10^3 (test code = 742-7) 0.65 10*3/uL 0.33-0.92 EOS x10^3 (test code = 711-2) 0.29 10*3/uL 0.03-0.39 BASO x10^3 (test code = 704-7) 0.05 10*3/uL 0.01-0.07 Lab Interpretation (test code = 22227-0) [facility]PO[facility] [id number] 02:21:00* Test Item Value Reference Range Interpretation Comme nts POCT PREG (test code = 1605) Negative On board controls acceptable with C Line (test code = 3574) Present Lab Interpretation (test cod e = 10636-8) [facility] HospitalComplete Metabolic [id number] 02:05:50* Test Item Value Reference Range Interpretation Comme nts NA (test code = 9268331724) 137 mmol/L 135-145 K (test code = 7342601186) 3.9 mmol/L 3.5-5.0 CL (test code = 3252368531) 109 mmol/L 98-108 H CO2 TOTAL (test code = 6402539116) 19 mmol/L 23-31 L AGAP (test code = 1568647077) 2-16 BUN (test code = 8757624178) 10 mg/dL 7-23 GLUCOSE (test code = 4838627386) 101 mg/dL 70-110 CREATININE (test code = 1090718912) 0.80 mg/dL 0.50-1.04 TOTAL BILI (test code = 9523306020) 0.3 mg/dL 0.1-1.1 CALCIUM (test code = 5140001476) 8.8 mg/dL 8.6-10.6 T PROTEIN (test code = 2025801265) 6.6 g/dL 6.3-8.2 ALBUMIN (test code = 7960838591) 4.0 g/dL 3.5-5.0 ALK PHOS (test code = 8744574251) 71 U/L 34-122 ALTv (test code = 1742-6) 18 U/L 5-35 AST(SGOT) (test code = 0173982930) 20 U/L 13-40 eGFR (test code = 0223828784) mL/min/1.73m2 DARWIN (test code = DARWIN) Association [...] imaging tests). Lab Interpretation (test code = 87870-2) [facility] HospitalLipase, [id number] 02:05:25* Test Item Value Reference Range Interpretation Comme nts LIPASE (test code = 5158388660) 96 U/L 0-220 Lab Interpretation (test cod e = 97997-9) [facility] with Wvedqthtrpjj7896-43-13 01:53:06* Test Item Value Reference Range Interpretation Comme nts WBC (test code = 6690-2) See_Comment H [Automated messa ge] The system which generated this result transmitted reference range: 4.30 - 11.10 10*3/?L. The reference range was not used to interpret this result as normal/abnormal. RBC (test code = 789-8) See_Comment H [Automated [employer]] The system which generated this result [...] 34.3 g/dL 31.6-35.1 RDW-SD (test code = 76609-1) 40.5 fL 39.0-49.9 RDW-CV (test code = 788-0) 14.4 % 12.0-15.5 PLT (test code = 777-3) See_Comment [Automated [employer]] The system which generated this result transmitted reference range: 166 - 358 10*3/?L. The reference range was not used to interpret this result as normal/abnormal. MPV (test code = 62628-9) 9.4 fL 9.5-12.9 L NRBC/100 WBC (test code = 7353595039) See_Comment [Automated [employer]age] The system which generated this result transmitted reference range: 0.0 - 10.0 /100 WBCs. The reference range was not used to interpret this result as normal/abnormal. NRBC x10^3 (test code = 9299637276) <0.01 See_Comment [Automated [employer]] The system which generated this result transmitted reference range: 10*3/?L. The reference range was not used to interpret this result as normal/abnormal. GRAN MAT (NEUT) % (test code = 770-8) 59.8 % IMM GRAN % (test code = 5140862511) 0.40 % LYMPH % (test code = 736-9) 31.0 % MONO % (test code = 5905-5) 6.3 % EOS % (test code = 713-8) 2.0 % BASO % (test code = 706-2) 0.5 % GRAN MAT x10^3(ANC) (test code = 7776314287) 6.73 10*3/uL 1.88-7.09 IMM GRAN x10^3 (test code = 9480124909) 0.05 10*3/uL 0.00-0.06 LYMPH x10^3 (test code = 731-0) 3.50 10*3/uL 1.32-3.29 H MONO x10^3 (test code = 742-7) 0.71 10*3/uL 0.33-0.92 EOS x10^3 (test code = 711-2) 0.23 10*3/uL 0.03-0.39 BASO x10^3 (test code = 704-7) 0.06 10*3/uL 0.01-0.07 Lab Interpretation (test code = 55406-8) Abnormal [facility] [id number] 01:45:00* Test Item Value Reference Range Interpretation Comme nts POCT PREG (test code = 1605) negatibe On board controls acceptable with C Line (test code = 3574) present POCT PREG LOT # (test code = 3575) [id number] POCT PREG TEST DATE ( test code = 3576) 09/04/2022 Lab Interpretation (test cod e = 99175-8) Normal [facility] VELY0816-30-22 06:35:00* Test Item Value Reference Range Interpretation Comme nts POCT PREG (test code = 1605) negative On board controls acceptable with C Line (test code = 3574) present POCT PREG LOT # (test code = 3575) [id number] POCT PREG TEST DATE ( test code = 3576) Lab Interpretation (test cod e = 35706-2) [facility] [id number] 09:09:55* Test Item Value Reference Range Interpretation Comments TROPONIN I (test code = 2983648907) 0.001 ng/mL See_Comment [Automated message] The system [...] of biotin. Lab Interpretation (test code = 86849-5) [facility]D-MKGCP2599-84-00 07:23:51* Test Item Value Reference Range Interpretation Comments D-DIMER (test code = 0488012190) See_Comment [Automated message] The system which generated [...] a diagnosis. Lab Interpretation (test code = 01952-7) [facility]2021-[facility]-21 06:11:26* Test Item Value Reference Range Interpretation Comme nts LIPASE (test code = 7571227785) 155 U/L 0-220 Lab Interpretation (test cod e = 63642-3) [facility] [id number] 06:06:05* Test Item Value Reference Range Interpretation Comments TROPONIN I (test code = 0363686435) 0.002 ng/mL See_Comment [Automated message] The system [...] of biotin. Lab Interpretation (test code = 68769-0) [facility]AL QOG-[id number] 06:03:04* Test Item Value Reference Range Interpretation Comme nts NT-proBNP (test code = 7808161978) 19 pg/mL See_Comment [Automated message] The system which generated this result transmitted reference range: <=125. The reference range was not used to interpret this result as normal/abnormal. DARWIN (test code = DARWIN) Biotin has been reported to cause a negative bias, interpret results relative to patient's use of biotin. Lab Interpretation (test code = 68662-8) [facility] MET[facility]OLIC PANEL (37694)2021-05-28 05:54:25* Test Item Value Reference Range Interpretation Comme nts NA (test code = 7333010917) 136 mmol/L 135-145 K (test code = 2693017755) 3.2 mmol/L 3.5-5.0 L CL (test code = 0106318490) 109 mmol/L 98-108 H CO2 TOTAL (test code = 0839590081) 16 mmol/L 23-31 L AGAP (test code = 8598877116) 2-16 BUN (test code = 7854912735) 11 mg/dL 7-23 GLUCOSE (test code = 8230026705) 144 mg/dL 70-110 H CREATININE (test code = 4931244048) 0.84 mg/dL 0.50-1.04 TOTAL BILI (test code = 0473174849) 0.2 mg/dL 0.1-1.1 CALCIUM (test code = 5890945147) 9.4 mg/dL 8.6-10.6 T PROTEIN (test code = 9391579081) 6.9 g/dL 6.3-8.2 ALBUMIN (test code = 5123430289) 3.9 g/dL 3.5-5.0 ALK PHOS (test code = 5595265676) 106 U/L 34-122 ALTv (test code = 1742-6) 20 U/L 5-35 AST(SGOT) (test code = 8155723406) 17 U/L 13-40 eGFR (test code = 9556228405) mL/min/1.73m2 DARWIN (test code = DARWIN) Association [...] imaging tests). Lab Interpretation (test code = 58572-1) Abnormal [facility] WITH [id number] 05:40:06* Test Item Value Reference Range Interpretation Comme nts WBC (test code = 6690-2) See_Comment [Automated [employer]] The system which generated this result transmitted reference range: 4.30 - 11.10 10*3/?L. The reference range was not used to interpret this result as normal/abnormal. RBC (test code = 789-8) See_Comment [Automated [employer]] The system which generated this result [...] 33.3 g/dL 31.6-35.1 RDW-SD (test code = 60942-6) 39.7 fL 39.0-49.9 RDW-CV (test code = 788-0) 13.6 % 12.0-15.5 PLT (test code = 777-3) See_Comment [Automated [employer]] The system which generated this result transmitted reference range: 166 - 358 10*3/?L. The reference range was not used to interpret this result as normal/abnormal. MPV (test code = 96775-8) 9.5 fL 9.5-12.9 NRBC/100 WBC (test code = 3346646611) See_Comment [Automated [employer]age] The system which generated this result transmitted reference range: 0.0 - 10.0 /100 WBCs. The reference range was not used to interpret this result as normal/abnormal. NRBC x10^3 (test code = 8355834204) <0.01 See_Comment [Automated [employer]] The system which generated this result transmitted reference range: 10*3/?L. The reference range was not used to interpret this result as normal/abnormal. GRAN MAT (NEUT) % (test code = 770-8) 53.7 % IMM GRAN % (test code = [id number]) 0.50 % LYMPH % (test code = 736-9) 36.0 % MONO % (test code = 5905-5) 6.3 % EOS % (test code = 713-8) 2.8 % BASO % (test code = 706-2) 0.7 % GRAN MAT x10^3(ANC) (test code = [id number]) 5.38 10*3/uL 1.88-7.09 IMM GRAN x10^3 (test code = [id number]) 0.05 10*3/uL 0.00-0.06 LYMPH x10^3 (test code = 731-0) 3.60 10*3/uL 1.32-3.29 H MONO x10^3 (test code = 742-7) 0.63 10*3/uL 0.33-0.92 EOS x10^3 (test code = 711-2) 0.28 10*3/uL 0.03-0.39 BASO x10^3 (test code = 704-7) 0.07 10*3/uL 0.01-0.07 Lab Interpretation (test code = 75938-2) [id number]* Test Item Value Reference Range Interpretation Comme nts POCT PREG (test code = 1605) negative On board controls acceptable with C Line (test code = 3574) present POCT PREG LOT # (test code = 3575) [id number] POCT PREG TEST DATE ( test code = 3576) 08/07/2022 Lab Interpretation (test cod e = 22052-6) [facility] [id number] 11:13:57* Test Item Value Reference Range Interpretation Comments TROPONIN I (test code = 1268706424) 0.002 ng/mL See_Comment [Automated message] The system [...] of biotin. Lab Interpretation (test code = 42477-4) Normal [facility] Metabolic Panel (NA, K, CL, CO2, GLUCOSE, BUN, CREATININE, CA)2021-04-08 11:04:34* Test Item Value Reference Range Interpretation Comme nts NA (test code = 3552927782) 140 mmol/L 135-145 K (test code = 6236776397) 3.6 mmol/L 3.5-5.0 CL (test code = 2508437880) 111 mmol/L 98-108 H CO2 TOTAL (test code = 0280847055) 22 mmol/L 23-31 L AGAP (test code = 3144633553) 2-16 BUN (test code = 2270172652) 10 mg/dL 7-23 GLUCOSE (test code = 9589915746) 104 mg/dL 70-110 CREATININE (test code = 1199692525) 0.70 mg/dL 0.50-1.04 CALCIUM (test code = 6539060833) 8.7 mg/dL 8.6-10.6 eGFR (test code = 0379395606) mL/min/1.73m2 DARWIN (test code = DARWIN) Association [...] imaging tests). Lab Interpretation (test code = 49887-0) Abnormal [facility] with Megwtbpnmmxr1572-88-45 10:46:50* Test Item Value Reference Range Interpretation Comme nts WBC (test code = 6690-2) See_Comment [[employer]] The system which generated this result transmitted reference range: 4.30 - 11.10 10*3/?L. The reference range was not used to interpret this result as normal/abnormal. RBC (test code = 789-8) See_Comment [[employer]] The system which generated this result transmitted [...] 33.5 g/dL 31.6-35.1 RDW-SD (test code = 48953-6) 42.0 fL 39.0-49.9 RDW-CV (test code = 788-0) 14.1 % 12.0-15.5 PLT (test code = 777-3) See_Comment [Automated messa ge] The system which generated this result transmitted reference range: 166 - 358 10*3/?L. The reference range was not used to interpret this result as normal/abnormal. MPV (test code = 05652-6) 10.0 fL 9.5-12.9 NRBC/100 WBC (test code = 0251957827) See_Comment [Automated me ssage] The system which generated this result transmitted reference range: 0.0 - 10.0 /100 WBCs. The reference range was not used to interpret this result as normal/abnormal. NRBC x10^3 (test code = 9712279655) <0.01 See_Comment [Automated me ssage] The system which generated this result transmitted reference range: 10*3/?L. The reference range was not used to interpret this result as normal/abnormal. GRAN MAT (NEUT) % (test code = 770-8) 59.1 % IMM GRAN % (test code = 8079216266) 0.70 % LYMPH % (test code = 736-9) 28.2 % MONO % (test code = 5905-5) 8.5 % EOS % (test code = 713-8) 3.0 % BASO % (test code = 706-2) 0.5 % GRAN MAT x10^3(ANC) (test code = 4300014676) 3.61 10*3/uL 1.88-7.09 IMM GRAN x10^3 (test code = 7330598175) 0.04 10*3/uL 0.00-0.06 LYMPH x10^3 (test code = 731-0) 1.72 10*3/uL 1.32-3.29 MONO x10^3 (test code = 742-7) 0.52 10*3/uL 0.33-0.92 EOS x10^3 (test code = 711-2) 0.18 10*3/uL 0.03-0.39 BASO x10^3 (test code = 704-7) 0.03 10*3/uL 0.01-0.07 [id number] 05:54:48* Test Item Value Reference Range Interpretation Comments TROPONIN I (test code = 4956240810) 0.002 ng/mL See_Comment [Automated message] The system [...] of biotin. Lab Interpretation (test code = 82691-6) Normal [facility] HospitalThyroid Stimulating Hormone (TSH)2021-04-08 00:51:16* Test Item Value Reference Range Interpretation Comme nts TSH (test code = 2130062006) See_Comment [Automated messa ge] The system which generated this result transmitted reference range: 0.45 - 4.70 mIU/L. The reference range was not used to interpret this result as normal/abnormal. Lab Interpretation (test code = 68354-2) Normal [facility] HospitalGlycosylated Hemoglobin (A1C)2021-04-08 00:26:53* Test Item Value Reference Range Interpretation Comme nts HGB A1C (test code = 4548-4) 5.5 % 4.0-5.7 DARWIN (test code = DARWIN) Reference RangesNormal: <5.7%Prediabetes: 5.7 - 6.4%Diabetes: > 6.5% Lab Interpretation (test code = 95892-1) Normal [facility] HospitalLipid Panel (Total Cholesterol, Triglycerides, HDL)2021-04-08 00:20:12* Test Item Value Reference Range Interpretation Comme nts CHOL (test code = 1552322938) 223 mg/dL 120-200 H HDL (test code = 6214150418) 35 mg/dL >50 L HDLC RATIO (test code = 8552013608) See_Comment H [Automated [employer]] The system which generated this result transmitted reference range: <=4.5. The reference range was not used to interpret this result as normal/abnormal. TRIG (test code = 2795037704) 223 mg/dL 30-170 H LDL CHOL (test code = 72133-4) 143 mg/dL See_Comment [Automated [employer]] The system which generated this result transmitted reference range: <=160. The reference range was not used to interpret this result as normal/abnormal. VLDL (test code = 4226467067) 45 mg/dL 5-60 Lab Interpretation (test code = 19880-8) [facility]normal [facility] HospitalMagnesium Uwhwv9651-05-97 00:20:07* Test Item Value Reference Range Interpretation Comme nts MAGNESIUM (test code = 4135563806) 1.7 mg/dL 1.7-2.4 Lab Interpretation (test cod e = 32259-6) [facility] HospitalCOMP. METABOLIC PANEL (67181)2021-04-07 23:04:13* Test Item Value Reference Range Interpretation Comme nts NA (test code = 7107191767) 139 mmol/L 135-145 K (test code = 9169157073) 3.4 mmol/L 3.5-5.0 L CL (test code = 1683629713) 109 mmol/L 98-108 H CO2 TOTAL (test code = 0899766008) 22 mmol/L 23-31 L AGAP (test code = 0287968304) 2-16 BUN (test code = 9918982534) 10 mg/dL 7-23 GLUCOSE (test code = 7821731282) 97 mg/dL 70-110 CREATININE (test code = 0000803337) 0.84 mg/dL 0.50-1.04 TOTAL BILI (test code = 8942328387) 0.3 mg/dL 0.1-1.1 CALCIUM (test code = 6008407694) 9.2 mg/dL 8.6-10.6 T PROTEIN (test code = 4905548347) 6.6 g/dL 6.3-8.2 ALBUMIN (test code = 3225099310) 3.8 g/dL 3.5-5.0 ALK PHOS (test code = 8387751481) 69 U/L 34-122 ALTv (test code = 1742-6) 18 U/L 5-35 AST(SGOT) (test code = 6279294646) 19 U/L 13-40 eGFR (test code = 9158570387) mL/min/1.73m2 DARWIN (test code = DARWIN) Association [...] imaging tests). Lab Interpretation (test code = 54026-4) [facility]normal [facility] HospitalTROPONIN [id number] 22:33:04* Test Item Value Reference Range Interpretation Comments TROPONIN I (test code = 9229518563) 0.001 ng/mL See_Comment [Automated message] The system [...] of biotin. Lab Interpretation (test code = 98704-6) Normal [facility] HospitalN-TERMINAL [id number]-MEY6694-25-01 22:30:05* Test Item Value Reference Range Interpretation Comme [facility] NT-proBNP (test code = 0773917016) 352 pg/mL See_Comment H [Automated message] The system which generated this result transmitted reference range: <=125. The reference range was not used to interpret this result as normal/abnormal. DARWIN (test code = DARWIN) Biotin has been reported to cause a negative bias, interpret results relative to patient's use of biotin. Lab Interpretation (test code = 55201-6) Abnormal [facility] HospitalACTIVATED PARTIAL THRMPLAS [id number] 22:28:48* Test Item Value Reference Range Interpretation [...] 30 seconds. Lab Interpretation (test code = 64079-9) Normal [facility] HospitalPROTHROMBIN TIME / [id number] 22:26:44* Test Item Value Reference Range Interpretation [...] the indications. Lab Interpretation (test code = 27590-8) Normal [facility] HospitalLIPASE2021-10-01 22:20:05* Test Item Value Reference Range Interpretation Comme nts LIPASE (test code = 7819351753) 66 U/L 0-220 Lab Interpretation (test cod e = 89378-0) Normal [facility] HospitalCB WITH [id number] 22:07:01* Test Item Value Reference Range Interpretation [...] 33.2 g/dL 31.6-35.1 RDW-SD (test code = 35970-2) 41.6 fL 39.0-49.9 RDW-CV (test code = 788-0) 14.1 % 12.0-15.5 PLT (test code = 777-3) See_Comment [Automated messa ge] The system which generated this result transmitted reference range: 166 - 358 10*3/?L. The reference range was not used to interpret this result as normal/abnormal. MPV (test code = 60738-1) 9.2 fL 9.5-12.9 L NRBC/100 WBC (test code = 1092390589) See_Comment [Automated [employer] ssage] The system which generated this result transmitted reference range: 0.0 - 10.0 /100 WBCs. The reference range was not used to interpret this result as normal/abnormal. NRBC x10^3 (test code = 8390139421) <0.01 See_Comment [Automated messa ge] The system which generated this result transmitted reference range: 10*3/?L. The reference range was not used to interpret this result as normal/abnormal. GRAN MAT (NEUT) % (test code = 770-8) 61.6 % IMM GRAN % (test code = 9780286036) 0.60 % LYMPH % (test code = 736-9) 28.7 % MONO % (test code = 5905-5) 4.9 % EOS % (test code = 713-8) 3.7 % BASO % (test code = 706-2) 0.5 % GRAN MAT x10^3(ANC) (test code = 1824226090) 6.24 10*3/uL 1.88-7.09 IMM GRAN x10^3 (test code = 1179606964) 0.06 10*3/uL 0.00-0.06 LYMPH x10^3 (test code = 731-0) 2.90 10*3/uL 1.32-3.29 MONO x10^3 (test code = 742-7) 0.50 10*3/uL 0.33-0.92 EOS x10^3 (test code = 711-2) 0.37 10*3/uL 0.03-0.39 BASO x10^3 (test code = 704-7) 0.05 10*3/uL 0.01-0.07 Lab Interpretation (test code = 41310-0) [facility]normal [facility] HospitalURINALYSIS2021-07-08 08:49:55* Test Item Value Reference Range Interpretation Comme nts APPEARANCE (test code = 6769399270) Cloudy Clear A COLOR (test code = 6706224974) Yellow Yellow PH (test code = 2310204705) 4.8-8.0 SP GRAVITY (test code = 5230604501) 1.003-1.030 GLU U QUAL (test code = 2531394316) Normal Normal BLOOD (test code = 2967782734) Negative Negative KETONES (test code = 5332887105) Negative Negative PROTEIN (test code = 2887-8) Negative Negative UROBILIN (test code = 5720581743) Normal Normal BILIRUBIN (test code = 0273788809) 2 mg/dL Negative A NITRITE (test code = 2250265174) Negative Negative LEUK MARC (test code = 1798134056) 75/uL Negative A RBC/HPF (test code = 5597339101) See_Comment H [Automated messa ge] The system which generated this result transmitted reference range: 0 - 3 HPF. The reference range was not used to interpret this result as normal/abnormal. WBC/HPF (test code = 7014201041) See_Comment H [Automated messa ge] The system which generated this result transmitted reference range: 0 - 5 HPF. The reference range was not used to interpret this result as normal/abnormal. BACTERIA (test code = 3520619375) Moderate Negative A MUCOUS (test code = 4141069587) Slight Negative LPF A SQ EPITH (test code = 6051885435) HPF YEAST BUD (test code = 5770322812) See_Comment H [Automated messa ge] The system which generated this result transmitted reference range: <=1 HPF. The reference range was not used to interpret this result as normal/abnormal. Ictotest (test code = 5440126752) Negative Lab Interpretation (test code = 89680-5) Abnormal [facility]. METABOLIC PANEL (45771)2021-01-12 08:49:44* Test Item Value Reference Range Interpretation Comme nts NA (test code = 2813911491) 137 mmol/L 135-145 K (test code = 7627631126) 4.6 mmol/L 3.5-5.0 CL (test code = 6252106849) 108 mmol/L 98-108 CO2 TOTAL (test code = 7518935363) 21 mmol/L 23-31 L AGAP (test code = 3153811170) 2-16 BUN (test code = 8006308481) 19 mg/dL 7-23 GLUCOSE (test code = 9132851713) 107 mg/dL 70-110 CREATININE (test code = 1098716775) 0.63 mg/dL 0.50-1.04 TOTAL BILI (test code = 1332989386) 0.4 mg/dL 0.1-1.1 CALCIUM (test code = 3691046817) 9.2 mg/dL 8.6-10.6 T PROTEIN (test code = 5776556426) 7.4 g/dL 6.3-8.2 ALBUMIN (test code = 1725693159) 4.2 g/dL 3.5-5.0 ALK PHOS (test code = 0903631932) 179 U/L 34-122 H ALTv (test code = 1742-6) 113 U/L 5-35 H AST(SGOT) (test code = 2330393402) 38 U/L 13-40 eGFR (test code = 4441730503) mL/min/1.73m2 DARWIN (test code = DARWIN) Association [...] imaging tests). Lab Interpretation (test code = 74823-0) Abnormal [facility] WITH [id number] 08:11:02* Test Item Value Reference Range Interpretation Comme nts WBC (test code = 6690-2) See_Comment H [Automated [employer]UCUN] The system which generated this result transmitted [...] 33.3 g/dL 31.6-35.1 RDW-SD (test code = 43628-6) 41.6 fL 39.0-49.9 RDW-CV (test code = 788-0) 14.0 % 12.0-15.5 PLT (test code = 777-3) See_Comment [Automated messa ge] The system which generated this result transmitted reference range: 166 - 358 10*3/?L. The reference range was not used to interpret this result as normal/abnormal. MPV (test code = 84123-3) 9.5 fL 9.5-12.9 NRBC/100 WBC (test code = 6587063723) See_Comment [Automated [employer] ssage] The system which generated this result transmitted reference range: 0.0 - 10.0 /100 WBCs. The reference range was not used to interpret this result as normal/abnormal. NRBC x10^3 (test code = 3222571649) <0.01 See_Comment [Automated messa ge] The system which generated this result transmitted reference range: 10*3/?L. The reference range was not used to interpret this result as normal/abnormal. GRAN MAT (NEUT) % (test code = 770-8) 68.0 % IMM GRAN % (test code = 0442633731) 0.80 % LYMPH % (test code = 736-9) 23.6 % MONO % (test code = 5905-5) 5.1 % EOS % (test code = 713-8) 2.1 % BASO % (test code = 706-2) 0.4 % GRAN MAT x10^3(ANC) (test code = 9419519861) 8.86 10*3/uL 1.88-7.09 H IMM GRAN x10^3 (test code = 9471377062) 0.11 10*3/uL 0.00-0.06 H LYMPH x10^3 (test code = 731-0) 3.07 10*3/uL 1.32-3.29 MONO x10^3 (test code = 742-7) 0.66 10*3/uL 0.33-0.92 EOS x10^3 (test code = 711-2) 0.27 10*3/uL 0.03-0.39 BASO x10^3 (test code = 704-7) 0.05 10*3/uL 0.01-0.07 Lab Interpretation (test code = 94613-7) [facility]PO[facility] [id number] 08:02:00* Test Item Value Reference Range Interpretation Comme nts POCT PREG (test code = 1605) negative On board controls acceptable with C Line (test code = 3574) positive POCT PREG LOT # (test code = 3575) [id number] POCT PREG TEST DATE ( test code = 3576) 07/07/2022 Lab Interpretation (test cod e = 91953-2) Normal [facility] HospitalTROPONIN N0828-04-17 01:55:05* Test Item Value Reference Range Interpretation Comme nts TROPONIN I (test code = 8477584084) 0.000 ng/mL See_Comment [Automated message] The system [...] biotin. ? Lab Interpretation (test code = 22779-8) Normal [facility] 1 [id number] 23:41:46No radiographic evidence of an acute cardiopulmonary process. RL: 2109AFC: 22256 EXAM: XR CHEST 1 VW ORDERING PROVIDER: [...] evidence of an acute cardiopulmonary process.RL: 2109AFC: 84345 [facility] [id number] 23:07:21* Test Item Value Reference Range Interpretation Comme nts TROPONIN I (test code = 7882514035) 0.000 ng/mL See_Comment [Automated message] The system [...] biotin. ? Lab Interpretation (test code = 83378-1) Normal [facility] HospitalN-TERMINAL [id number] 23:04:20* Test Item Value Reference Range Interpretation Comme nts NT-proBNP (test code = 0600792724) 14 pg/mL See_Comment [Automated message] The system which generated this result transmitted reference range: <=125. The reference range was not used to interpret this result as normal/abnormal. DARWIN (test code = DARWIN) Biotin has been reported to cause a negative bias, interpret results relative to patient's use of biotin. Lab Interpretation (test code = 94509-2) Normal [facility] HospitalHepatic Function Panel (ALB, T.PRO, BILI T, BU/BC, ALT, AST, ALK PHOS)2020-12-10 22:58:16* Test Item Value Reference Range Interpretation Comme nts TOTAL BILI (test code = 4360361451) 0.5 mg/dL 0.1-1.1 BILI UNCON (test code = 6422694294) 0.3 mg/dL 0.1-1.1 BILI CONJ (test code = 9767921459) 0.0 mg/dL 0.0-0.3 T PROTEIN (test code = 5097214607) 8.1 g/dL 6.3-8.2 ALBUMIN (test code = 9521642555) 4.7 g/dL 3.5-5.0 ALK PHOS (test code = 7222628425) 104 U/L 34-122 ALTv (test code = 1742-6) 18 U/L 5-35 AST(SGOT) (test code = 5509068033) 23 U/L 13-40 Lab Interpretation (test cod e = 15414-6) [facility] (NA, K, CL, CO2, GLUCOSE, BUN, CREATININE, CA)2020-12-10 22:57:56* Test Item Value Reference Range Interpretation Comme nts NA (test code = 3356004827) 135 mmol/L 135-145 K (test code = 4681971344) 3.7 mmol/L 3.5-5.0 CL (test code = 1608074485) 105 mmol/L 98-108 CO2 TOTAL (test code = 6188879397) 18 mmol/L 23-31 L AGAP (test code = 4015299437) 2-16 BUN (test code = 1913975714) 14 mg/dL 7-23 GLUCOSE (test code = 4828716429) 108 mg/dL 70-110 CREATININE (test code = 6739310647) 0.56 mg/dL 0.50-1.04 CALCIUM (test code = 3244152329) 9.8 mg/dL 8.6-10.6 eGFR (test code = 6811003138) mL/min/1.73m2 DARWIN (test code = DARWIN) Association [...] imaging tests). Lab Interpretation (test code = 78900-9) [facility]normal [facility] HospitalLipase Vjnnr8110-09-62 22:57:56* Test Item Value Reference Range Interpretation Comme nts LIPASE (test code = 5252299322) 122 U/L 0-220 Lab Interpretation (test cod e = 73582-0) Normal [facility] HospitalD-WFRWE4214-41-94 22:52:34* Test Item Value Reference Range Interpretation Comments D-DIMER (test code = 4722174400) See_Comment [Automated message] The system which generated [...] a diagnosis. Lab Interpretation (test code = 81059-7) Normal [facility] HospitalUrinalysis2021-06-05 22:52:29* Test Item Value Reference Range Interpretation Comme nts APPEARANCE (test code = 0469489980) Hazy Clear A COLOR (test code = 4660082902) Yellow Yellow PH (test code = 8918572630) 4.8-8.0 SP GRAVITY (test code = 5537445704) 1.003-1.030 GLU U QUAL (test code = 9862478032) Normal Normal BLOOD (test code = 3707521317) Negative Negative KETONES (test code = 3973174153) Negative Negative PROTEIN (test code = 2887-8) Negative Negative UROBILIN (test code = 0669286310) Normal Normal BILIRUBIN (test code = 0944994274) 2 mg/dL Negative A NITRITE (test code = 5960708609) Negative Negative LEUK MARC (test code = 8668494846) 25/uL Negative A RBC/HPF (test code = 9478999958) See_Comment [Automated [employer]] The system which generated this result transmitted reference range: 0 - 3 HPF. The reference range was not used to interpret this result as normal/abnormal. WBC/HPF (test code = 2772128765) See_Comment [Automated [employer]] The system which generated this result transmitted reference range: 0 - 5 HPF. The reference range was not used to interpret this result as normal/abnormal. BACTERIA (test code = 0292297710) Few Negative A MUCOUS (test code = 9235379255) Slight Negative LPF A SQ EPITH (test code = 1182578020) HPF Lab Interpretation (test code = 28866-7) [facility]normal [facility] HospitalCBC with Ysjvqfxkeisn5709-08-50 22:45:56* Test Item Value Reference Range Interpretation [...] 33.5 g/dL 31.6-35.1 RDW-SD (test code = 65620-8) 40.5 fL 39.0-49.9 RDW-CV (test code = 788-0) 13.3 % 12.0-15.5 PLT (test code = 777-3) See_Comment H [Automated message] The system which generated this result transmitted reference range: 166 - 358 10*3/?L. The reference range was not used to interpret this result as normal/abnormal. MPV (test code = 48440-5) 9.2 fL 9.5-12.9 L NRBC/100 WBC (test code = 4216172800) See_Comment [Automated message] The system which generated this result transmitted reference range: 0.0 - 10.0 /100 WBCs. The reference range was not used to interpret this result as normal/abnormal. NRBC x10^3 (test code = 1329397966) <0.01 See_Comment [Automated message] The system which generated this result transmitted reference range: 10*3/?L. The reference range was not used to interpret this result as normal/abnormal. GRAN MAT (NEUT) % (test code = 770-8) 73.4 % IMM GRAN % (test code = 6436548122) 0.50 % LYMPH % (test code = 736-9) 17.5 % MONO % (test code = 5905-5) 6.5 % EOS % (test code = 713-8) 1.6 % BASO % (test code = 706-2) 0.5 % GRAN MAT x10^3(ANC) (test code = 8438788762) 10.21 10*3/uL 1.88-7.09 H IMM GRAN x10^3 (test code = 6674928134) 0.07 10*3/uL 0.00-0.06 H LYMPH x10^3 (test code = 731-0) 2.44 10*3/uL 1.32-3.29 MONO x10^3 (test code = 742-7) 0.90 10*3/uL 0.33-0.92 EOS x10^3 (test code = 711-2) 0.22 10*3/uL 0.03-0.39 BASO x10^3 (test code = 704-7) 0.07 10*3/uL 0.01-0.07 Lab Interpretation (test code = 24074-1) [facility] HospitalPOCT Qmur3932-20-13 22:32:00* Test Item Value Reference Range Interpretation Comme nts POCT PREG (test code = 1605) negative On board controls acceptable with C Line (test code = 3574) present POCT PREG LOT # (test code = 3575) [id number] POCT PREG TEST DATE ( test code = 3576) 06/06/2022 Lab Interpretation (test cod e = 18565-0) Normal [facility] HospitalUrinalysis2021-05-30 21:34:43* Test Item Value Reference Range Interpretation Comme nts APPEARANCE (test code = 3098128704) Clear Clear COLOR (test code = 6898107153) Yellow Yellow PH (test code = 7713062905) 4.8-8.0 SP GRAVITY (test code = 3356054173) 1.003-1.030 GLU U QUAL (test code = 4306319918) Normal Normal BLOOD (test code = 4325380084) Negative Negative KETONES (test code = 9416963211) Negative Negative PROTEIN (test code = 2887-8) Negative Negative UROBILIN (test code = 4472434286) Normal Normal BILIRUBIN (test code = 5203309107) Negative Negative NITRITE (test code = 2065925250) Negative Negative LEUK MARC (test code = 1560694822) Negative Negative RBC/HPF (test code = 4500792167) See_Comment [Automated [employer]] The system which generated this result transmitted reference range: 0 - 3 HPF. The reference range was not used to interpret this result as normal/abnormal. WBC/HPF (test code = 5502035984) <1 See_Comment [Automated messa ge] The system which generated this result transmitted reference range: 0 - 5 HPF. The reference range was not used to interpret this result as normal/abnormal. BACTERIA (test code = 6655859743) Negative Negative MUCOUS (test code = 1809982806) Slight Negative LPF A SQ EPITH (test code = 9489368308) HPF Lab Interpretation (test code = 78048-9) [facility]PO[facility] Yegj0861-05-35 21:18:00* Test Item Value Reference Range Interpretation Comme nts POCT PREG (test code = 1605) negative On board controls acceptable with C Line (test code = 3574) present POCT PREG LOT # (test code = 3575) [id number] POCT PREG TEST DATE ( test code = 3576) 06/06/2022 Lab Interpretation (test cod e = 10963-1) Normal [facility] HospitalXR ANKLE 3+ VW WWLC2394-10-18 21:11:00No acute bony abnormality. Preliminary Report Dictated [...] reviewed this study and agree with the abovereport.[facility] HospitalJoan C5596-24-39 20:59:44* Test Item Value Reference Range Interpretation Comme nts TROPONIN I (test code = 8538468366) 0.000 ng/mL See_Comment [Automated message] The system [...] biotin. ? Lab Interpretation (test code = 83044-8) Normal [facility] HospitalLipase Nhbfm8013-96-31 20:48:20* Test Item Value Reference Range Interpretation Comme nts LIPASE (test code = 6844692077) 96 U/L 0-220 Lab Interpretation (test cod e = 93174-7) Normal [facility] HospitalBasic Metabolic Panel (NA, K, CL, CO2, GLUCOSE, BUN, CREATININE, CA)2020-12-04 20:48:20* Test Item Value Reference Range Interpretation Comme nts NA (test code = 9387650373) 138 mmol/L 135-145 K (test code = 3587481604) 3.8 mmol/L 3.5-5.0 CL (test code = 0810607926) 108 mmol/L 98-108 CO2 TOTAL (test code = 0292067184) 21 mmol/L 23-31 L AGAP (test code = 5519232643) 2-16 BUN (test code = 5644835144) 13 mg/dL 7-23 GLUCOSE (test code = 5727700899) 107 mg/dL 70-110 CREATININE (test code = 3479890601) 0.66 mg/dL 0.50-1.04 CALCIUM (test code = 6527120204) 9.3 mg/dL 8.6-10.6 eGFR (test code = 5319876743) mL/min/1.73m2 DARWIN (test code = DARWIN) Association [...] imaging tests). Lab Interpretation (test code = 04934-8) [facility]normal [facility]Hep[facility] Function Panel (ALB, T.PRO, BILI T, BU/BC, ALT, AST, ALK PHOS)2020-12-04 20:48:20* Test Item Value Reference Range Interpretation Comme nts TOTAL BILI (test code = 2030175411) 0.3 mg/dL 0.1-1.1 BILI UNCON (test code = 3631249887) 0.1 mg/dL 0.1-1.1 BILI CONJ (test code = 3990964346) 0.0 mg/dL 0.0-0.3 T PROTEIN (test code = 3044234905) 7.0 g/dL 6.3-8.2 ALBUMIN (test code = 2722414868) 4.0 g/dL 3.5-5.0 ALK PHOS (test code = 5979480447) 114 U/L 34-122 ALTv (test code = 1742-6) 30 U/L 5-35 AST(SGOT) (test code = 4917078426) 23 U/L 13-40 Lab Interpretation (test cod e = 40472-8) Normal [facility] with Xvlttynqbczd7902-73-45 20:35:01* Test Item Value Reference Range Interpretation Comme nts WBC (test code = 6690-2) See_Comment [Automated Tonaraa ge] The system which generated this result transmitted reference range: 4.30 - 11.10 10*3/?L. The reference range was not used to interpret this result as normal/abnormal. RBC (test code = 789-8) See_Comment [Automated [employer]] The system which generated this result transmitted [...] 34.0 g/dL 31.6-35.1 RDW-SD (test code = 40781-7) 39.8 fL 39.0-49.9 RDW-CV (test code = 788-0) 12.9 % 12.0-15.5 PLT (test code = 777-3) See_Comment [Automated messa ge] The system which generated this result transmitted reference range: 166 - 358 10*3/?L. The reference range was not used to interpret this result as normal/abnormal. MPV (test code = 52335-1) 9.3 fL 9.5-12.9 L NRBC/100 WBC (test code = 8862575412) See_Comment [Automated [employer] ssage] The system which generated this result transmitted reference range: 0.0 - 10.0 /100 WBCs. The reference range was not used to interpret this result as normal/abnormal. NRBC x10^3 (test code = 4279325215) <0.01 See_Comment [Automated messa ge] The system which generated this result transmitted reference range: 10*3/?L. The reference range was not used to interpret this result as normal/abnormal. GRAN MAT (NEUT) % (test code = 770-8) 71.5 % IMM GRAN % (test code = 0983679884) 0.30 % LYMPH % (test code = 736-9) 19.8 % MONO % (test code = 5905-5) 6.2 % EOS % (test code = 713-8) 1.8 % BASO % (test code = 706-2) 0.4 % GRAN MAT x10^3(ANC) (test code = 7956010983) 6.79 10*3/uL 1.88-7.09 IMM GRAN x10^3 (test code = 6719849828) 0.03 10*3/uL 0.00-0.06 LYMPH x10^3 (test code = 731-0) 1.88 10*3/uL 1.32-3.29 MONO x10^3 (test code = 742-7) 0.59 10*3/uL 0.33-0.92 EOS x10^3 (test code = 711-2) 0.17 10*3/uL 0.03-0.39 BASO x10^3 (test code = 704-7) 0.04 10*3/uL 0.01-0.07 Lab Interpretation (test code = 65402-1) [facility] 02:54:38* Test Item Value Reference Range Interpretation Comme nts AMPHET (test code = 7003378509) Negative Negative Cocaine Metabolite (test code = 1428619951) Negative Negative OPIATES (test code = 7223228127) Presumptive Positive Negative A THC (test code = 5888478680) Negative Negative DARWIN (test code = DARWIN) Urine Drug Cutoff Ranges Amphetamine: ? 1,000 ng/mLCocaine: ? 150 ng/mLOpiates: ? 300 ng/mLCannabinoids: ?50 ng/mL The results are to be used only for medical (i.e., treatment) purposes. Unconfirmed screening results must not be used for non-medical purposes (e.g., employment testing, legal testing). Lab Interpretation (test code = 48760-3) [facility]normal [facility]TR[facility] [id number] 02:51:11* Test Item Value Reference Range Interpretation Comme nts TROPONIN I (test code = 9476906060) 0.001 ng/mL See_Comment [Automated message] The system [...] biotin. ? Lab Interpretation (test code = 55219-5) [facility] 02:41:10* Test Item Value Reference Range [...] 30 seconds. Lab Interpretation (test code = 98206-5) [facility] 02:40:40* Test Item Value Reference Range Interpretation Comme nts APPEARANCE (test code = 9665596132) Clear Clear COLOR (test code = 4868796948) Yellow Yellow PH (test code = 9972230388) 4.8-8.0 SP GRAVITY (test code = 1187827187) 1.003-1.030 GLU U QUAL (test code = 1566296971) Normal Normal BLOOD (test code = 6219514047) Negative Negative KETONES (test code = 3771517980) Negative Negative PROTEIN (test code = 2887-8) Negative Negative UROBILIN (test code = 3492548183) Normal Normal BILIRUBIN (test code = 7495286060) Negative Negative NITRITE (test code = 1086437693) Negative Negative LEUK MARC (test code = 5588622458) Negative Negative RBC/HPF (test code = 3890330561) <1 See_Comment [Automated Tonara[employer] ge] The system which generated this result transmitted reference range: 0 - 3 HPF. The reference range was not used to interpret this result as normal/abnormal. WBC/HPF (test code = 5633584413) <1 See_Comment [Automated messa ge] The system which generated this result transmitted reference range: 0 - 5 HPF. The reference range was not used to interpret this result as normal/abnormal. BACTERIA (test code = 3399324988) Negative Negative MUCOUS (test code = 4170170804) Slight Negative LPF A SQ EPITH (test code = 6376630716) HPF Lab Interpretation (test code = 08782-3) [facility]OLIC PANEL (80755)2020-11-04 02:40:09* Test Item Value Reference Range Interpretation Comme nts NA (test code = 7799642467) 141 mmol/L 135-145 K (test code = 1545467223) 4.1 mmol/L 3.5-5.0 CL (test code = 6434003739) 110 mmol/L 98-108 H CO2 TOTAL (test code = 3399449548) 22 mmol/L 23-31 L AGAP (test code = 4862473835) 2-16 BUN (test code = 1801608139) 15 mg/dL 7-23 GLUCOSE (test code = 6012392412) 115 mg/dL 70-110 H CREATININE (test code = 2649108372) 0.69 mg/dL 0.50-1.04 TOTAL BILI (test code = 5976268692) 0.2 mg/dL 0.1-1.1 CALCIUM (test code = 2032966232) 9.2 mg/dL 8.6-10.6 T PROTEIN (test code = 3798891644) 6.8 g/dL 6.3-8.2 ALBUMIN (test code = 9041270663) 4.1 g/dL 3.5-5.0 ALK PHOS (test code = 4404068342) 69 U/L 34-122 ALTv (test code = 1742-6) 20 U/L 5-35 AST(SGOT) (test code = 7743334685) 23 U/L 13-40 eGFR (test code = 2250562421) mL/min/1.73m2 DARWIN (test code = DARWIN) Association [...] imaging tests). Lab Interpretation (test code = 56674-1) [facility]normal [facility] HospitalLIPASE, [id number] 02:39:49* Test Item Value Reference Range Interpretation Comme [facility] LIPASE (test code = 1856233282) 117 U/L 0-220 Lab Interpretation (test cod e = 40071-3) Normal [facility] HospitalPROTHROMBIN TIME / [id number] 02:39:08* Test Item Value Reference Range Interpretation Comme nts PROTIME PATIENT (test code = 5964-2) See_Comment [Automated [employer]] The system which generated this result transmitted reference range: 12.0 - 14.7 Seconds. The reference range was not used to interpret this result as normal/abnormal. INR (test code = 6301-6) Normal INR <1.1; Warfarin Therapeutic range 2.0 to 3.0 or 2.5 to 3.5, depending upon the indications. Lab Interpretation (test code = 30015-1) Normal [facility] HospitalCBC WITH [id number] 02:30:11* Test Item Value Reference Range Interpretation Comme nts WBC (test code = 6690-2) See_Comment H [Automated [employer]] The system which generated this result transmitted reference range: 4.30 - 11.10 10*3/?L. The reference range was not used to interpret this result as normal/abnormal. RBC (test code = 789-8) See_Comment [Automated [employer]] The system which generated this result transmitted [...] 32.8 g/dL 31.6-35.1 RDW-SD (test code = 70214-1) 44.1 fL 39.0-49.9 RDW-CV (test code = 788-0) 13.8 % 12.0-15.5 PLT (test code = 777-3) See_Comment [Automated [employer] ge] The system which generated this result transmitted reference range: 166 - 358 10*3/?L. The reference range was not used to interpret this result as normal/abnormal. MPV (test code = 06202-7) 9.6 fL 9.5-12.9 NRBC/100 WBC (test code = 1370776701) See_Comment [Automated [employer] ssage] The system which generated this result transmitted reference range: 0.0 - 10.0 /100 WBCs. The reference range was not used to interpret this result as normal/abnormal. NRBC x10^3 (test code = 1884119351) <0.01 See_Comment [Automated [employer] ge] The system which generated this result transmitted reference range: 10*3/?L. The reference range was not used to interpret this result as normal/abnormal. GRAN MAT (NEUT) % (test code = 770-8) 65.9 % IMM GRAN % (test code = 6969759275) 0.70 % LYMPH % (test code = 736-9) 25.9 % MONO % (test code = 5905-5) 5.1 % EOS % (test code = 713-8) 2.0 % BASO % (test code = 706-2) 0.4 % GRAN MAT x10^3(ANC) (test code = 7786993413) 8.82 10*3/uL 1.88-7.09 H IMM GRAN x10^3 (test code = 5426265496) 0.09 10*3/uL 0.00-0.06 H LYMPH x10^3 (test code = 731-0) 3.46 10*3/uL 1.32-3.29 H MONO x10^3 (test code = 742-7) 0.68 10*3/uL 0.33-0.92 EOS x10^3 (test code = 711-2) 0.27 10*3/uL 0.03-0.39 BASO x10^3 (test code = 704-7) 0.05 10*3/uL 0.01-0.07 Lab Interpretation (test code = 79350-8) [facility]normal [facility] HospitalCOVID-[facility] (ID NOW RAPID TESTING)2020-09-17 16:56:05* Test Item Value Reference Range Interpretation Comme nts SARS-CoV-2 Rapid ID NOW (test code = 24060-9) Not Detected Not Detected DARWIN (test code = DARWIN) ID NOW COVID-19 As say is an isothermal nucleic acid amplification test intended for the qualitative detection of nucleic acid from SARS-CoV-2 viral RNA in nasopharyngeal ([employer]) specimens. It is used under Emergency Use [...] clinically indicated. Lab Interpretation (test code = 53758-2) Normal [facility] HospitalRAPID STREP SCREEN FOR GROUP [id number] 16:54:09* Test Item Value Reference Range Interpretation Comme nts Streptococcus pyogenes (grou p A) antigen (test code = 98869-1) Negative Negative Lab Interpretation (test cod e = 69273-6) Normal [facility] HospitalXR HAND 3+ VW [id number] 07:29:48 Impression: No acute fracture or dislocation. RL: 2824AFC: 65168 End of Report Exam: Left Hand, 09/07/2020 12:45 AM. Ordering Physician: Saleem EDWARD. History: Left hand crush injury. Technique: 3 views of the left hand. Comparison: None. Findings: There is no acute fracture or dislocation. Joint spaces are preserved.There is no focal soft tissue swelling. [facility], Radiant Results Inft User - 09/07/2020 1:30 AM CSTExam: Left Hand, 09/07/2020 12:45 AM.Ordering Physician: Saleem EDWARD.History: Left hand crush injury.Technique: 3 views of the left hand.Comparison: None.Findings: There is no acute fracture or dislocation. Joint spaces arepreserved.There is no focal soft tissue swelling.IMPRESSIONImpression: No acute fracture or dislocation.RL: 2824AFC: 95819Bsn of Report [facility]XR FOR[facility] 2 VW [id number] 07:28:55No acute abnormality of the left forearm. RL: 6200AFC: 97131 Patient name: CHARITY JOHNSONGRANTOB: 1980 40 years [...] acute abnormality of the left forearm.RL: 6200AFC: 32478 [facility] HospitalUrinalysis2021-02-21 09:06:00* Test Item Value Reference Range Interpretation Comme nts APPEARANCE (test code = 5632185866) Hazy Clear A COLOR (test code = 9608104477) Yellow Yellow PH (test code = 9000488719) 4.8-8.0 SP GRAVITY (test code = 6384949168) 1.003-1.030 GLU U QUAL (test code = 2567281737) Normal Normal BLOOD (test code = 2516361213) Negative Negative KETONES (test code = 0723755250) Negative Negative PROTEIN (test code = 2887-8) Negative Negative UROBILIN (test code = 6416014753) Normal Normal BILIRUBIN (test code = 9131795302) Negative Negative NITRITE (test code = 0391320124) Negative Negative LEUK MARC (test code = 7198001527) Negative Negative RBC/HPF (test code = 0429134065) See_Comment [Automated messa ge] The system which generated this result transmitted reference range: 0 - 3 HPF. The reference range was not used to interpret this result as normal/abnormal. WBC/HPF (test code = 0014025798) <1 See_Comment [Automated messa ge] The system which generated this result transmitted reference range: 0 - 5 HPF. The reference range was not used to interpret this result as normal/abnormal. BACTERIA (test code = 4761941215) Moderate Negative A SQ EPITH (test code = 2609629100) HPF Lab Interpretation (test code = 29333-1) [facility]normal [facility] HospitalCB with Bsrgirejqrgt3662-32-87 08:50:00* Test Item Value Reference Range Interpretation [...] 34.0 g/dL 31.6-35.1 RDW-SD (test code = 02704-5) 42.6 fL 39-49.9 RDW-CV (test code = 788-0) 13.6 % 12-15.5 PLT (test code = 777-3) See_Comment H [Automated messa ge] The system which generated this result transmitted reference range: 166 - 358 10*3/?L. The reference range was not used to interpret this result as normal/abnormal. MPV (test code = 10460-3) 9.7 fL 9.5-12.9 NRBC/100 WBC (test code = 3728286015) See_Comment [Automated [employer] ssage] The system which generated this result transmitted reference range: 0.0 - 10.0 /100 WBCs. The reference range was not used to interpret this result as normal/abnormal. NRBC x10^3 (test code = 8963662727) <0.01 See_Comment [Automated messa ge] The system which generated this result transmitted reference range: 10*3/?L. The reference range was not used to interpret this result as normal/abnormal. GRAN MAT (NEUT) % (test code = 770-8) 49.7 % IMM GRAN % (test code = 4634899924) 0.50 % LYMPH % (test code = 736-9) 41.0 % MONO % (test code = 5905-5) 6.5 % EOS % (test code = 713-8) 1.9 % BASO % (test code = 706-2) 0.4 % GRAN MAT x10^3(ANC) (test code = 4936016337) 6.39 10*3/uL 1.88-7.09 IMM GRAN x10^3 (test code = 5348154458) 0.07 10*3/uL 0-0.06 H LYMPH x10^3 (test code = 731-0) 5.27 10*3/uL 1.32-3.29 H MONO x10^3 (test code = 742-7) 0.84 10*3/uL 0.33-0.92 EOS x10^3 (test code = 711-2) 0.24 10*3/uL 0.03-0.39 BASO x10^3 (test code = 704-7) 0.05 10*3/uL 0.01-0.07 Lab Interpretation (test code = 42985-0) [facility]normal [facility] HospitalPOCT Inbp7397-80-56 08:45:00* Test Item Value Reference Range Interpretation Comme nts POCT PREG (test code = 1605) neg On board controls acceptable with C Line (test code = 3574) yes POCT PREG LOT # (test code = 3575) [id number] POCT PREG TEST DATE ( test code = 3576) 04/06/2022 Lab Interpretation (test cod e = 24671-8) Normal [facility] HospitalComplete Metabolic Rdjmy4663-06-44 08:30:00* Test Item Value Reference Range Interpretation Comme nts NA (test code = 2659596971) 137 mmol/L 135-145 K (test code = 9788792003) 3.3 mmol/L 3.5-5 L CL (test code = 9534258087) 102 mmol/L 98-108 CO2 TOTAL (test code = 6166113597) 24 mmol/L 23-31 AGAP (test code = 1087652094) 2-16 BUN (test code = 8132678699) 9 mg/dL 7-23 GLUCOSE (test code = 5117944017) 116 mg/dL 70-110 H CREATININE (test code = 5963850679) 0.48 mg/dL 0.5-1.04 L TOTAL BILI (test code = 8661934635) 0.3 mg/dL 0.1-1.1 CALCIUM (test code = 8366339356) 9.4 mg/dL 8.6-10.6 T PROTEIN (test code = 0102913955) 7.0 g/dL 6.3-8.2 ALBUMIN (test code = 3167315493) 4.3 g/dL 3.5-5 ALK PHOS (test code = 3994598346) 127 U/L 34-122 H ALTv (test code = 1742-6) 87 U/L 5-35 H AST(SGOT) (test code = 3964399208) 34 U/L 13-40 eGFR Calculation (Non-) (test code = 3182544029) mL/min/1.73m2 eGFR Calculation () (test code = 1852062110) mL/min/1.73m2 DARWIN (test code = DARWIN) Association [...] imaging tests). Lab Interpretation (test code = 95764-7) [facility]normal [facility] HospitalLipase, Uoeaq7620-80-01 08:30:00* Test Item Value Reference Range Interpretation Comme nts LIPASE (test code = 0234500089) 297 U/L 0-220 H Lab Interpretation (test cod e = 19362-8) [facility] HospitalURINALYSIS2021-02-07 19:25:00* Test Item Value Reference Range Interpretation Comme nts APPEARANCE (test code = 3819006323) Clear Clear COLOR (test code = 1250665853) Straw Yellow A PH (test code = 4134960089) 4.8-8.0 SP GRAVITY (test code = 2184485139) 1.003-1.030 GLU U QUAL (test code = 4604814344) Normal Normal BLOOD (test code = 2145902220) 1+ Negative A KETONES (test code = 8319811025) Negative Negative PROTEIN (test code = 2887-8) Negative Negative UROBILIN (test code = 0425781687) Normal Normal BILIRUBIN (test code = 6599704499) Negative Negative NITRITE (test code = 3067594490) Negative Negative LEUK MARC (test code = 5221358465) Negative Negative RBC/HPF (test code = 0055940866) See_Comment [Automated UUCUN] The system which generated this result transmitted reference range: 0 - 3 HPF. The reference range was not used to interpret this result as normal/abnormal. WBC/HPF (test code = 2718151325) <1 See_Comment [Automated UUCUN] The system which generated this result transmitted reference range: 0 - 5 HPF. The reference range was not used to interpret this result as normal/abnormal. BACTERIA (test code = 9918090026) Few Negative A MUCOUS (test code = 9565044893) Slight Negative LPF A SQ EPITH (test code = 2453184599) HPF Lab Interpretation (test code = 25456-2) Abnormal [facility] [id number] 19:09:00* Test Item Value Reference Range Interpretation Comme nts TROPONIN I (test code = 3196199169) <0.012 See_Comment [Automated message] The system which [...] biotin. ? Lab Interpretation (test code = 91529-9) Normal [facility] - DRUG SCREEN [id number] 19:09:00* Test Item Value Reference Range Interpretation Comme nts BENZO U (test code = 4508251993) Presumptive Positive Negative A ROSA U (test code = 9960814323) Negative Negative AMPHET (test code = 7423047673) Negative Negative THC (test code = 0563651049) Negative Negative METHADONE (test code = 8015725741) Negative Negative Meth U (test code = 8761838673) Negative Negative OPIATES (test code = 3597957696) Negative Negative Cocaine Metabolite (test code = 3530561994) Negative Negative PROPOXY (test code = 5767255832) Negative Negative Tric U (test code = 6571862100) Negative Negative PCP (test code = 1299106146) Negative Negative OXYCOD (test code = 9933820161) Negative Negative DARWIN (test code = DARWIN) [...] legal testing). Lab Interpretation (test code = 72113-3) [facility] HospitalCOMP. METABOLIC PANEL (41584)2020-08-14 19:01:00* Test Item Value Reference Range Interpretation Comme nts NA (test code = 2144449829) 138 mmol/L 135-145 K (test code = 5015283409) 4.5 mmol/L 3.5-5 CL (test code = 4732981059) 106 mmol/L 98-108 CO2 TOTAL (test code = 9134513120) 21 mmol/L 23-31 L AGAP (test code = 4508125229) 2-16 BUN (test code = 4520907165) 13 mg/dL 7-23 GLUCOSE (test code = 5794302224) 97 mg/dL 70-110 CREATININE (test code = 9970316187) 0.48 mg/dL 0.5-1.04 L TOTAL BILI (test code = 4064958878) 0.4 mg/dL 0.1-1.1 CALCIUM (test code = 4225078116) 9.1 mg/dL 8.6-10.6 T PROTEIN (test code = 1742762329) 7.5 g/dL 6.3-8.2 ALBUMIN (test code = 7524935610) 4.3 g/dL 3.5-5 ALK PHOS (test code = 7626546823) 62 U/L 34-122 ALTv (test code = 1742-6) 19 U/L 5-35 AST(SGOT) (test code = 2331273764) 26 U/L 13-40 eGFR Calculation (Non-) (test code = 6709004480) mL/min/1.73m2 eGFR Calculation () (test code = 2031364219) mL/min/1.73m2 DARWIN (test code = DARWIN) Association [...] imaging tests). Lab Interpretation (test code = 35713-6) [facility]LIPASE2021-02-07 19:01:00* Test Item Value Reference Range Interpretation Comme [facility] LIPASE (test code = 8771895784) 76 U/L 0-220 Lab Interpretation (test cod e = 59914-7) Normal [facility] HospitalCB WITH [id number] 18:47:00* Test Item Value Reference Range Interpretation Comme nts WBC (test code = 6690-2) See_Comment H [Automated UUCUN] The system which generated this result transmitted reference range: 4.30 - 11.10 10*3/?L. The reference range was not used to interpret this result as normal/abnormal. RBC (test code = 789-8) See_Comment [Automated [employer]] The system which generated this result transmitted [...] 34.3 g/dL 31.6-35.1 RDW-SD (test code = 40143-2) 42.0 fL 39-49.9 RDW-CV (test code = 788-0) 13.4 % 12-15.5 PLT (test code = 777-3) See_Comment [Automated messa ge] The system which generated this result transmitted reference range: 166 - 358 10*3/?L. The reference range was not used to interpret this result as normal/abnormal. MPV (test code = 98382-0) 9.9 fL 9.5-12.9 NRBC/100 WBC (test code = 9053481364) See_Comment [Automated [employer] ssage] The system which generated this result transmitted reference range: 0.0 - 10.0 /100 WBCs. The reference range was not used to interpret this result as normal/abnormal. NRBC x10^3 (test code = 9883343978) <0.01 See_Comment [Automated messa ge] The system which generated this result transmitted reference range: 10*3/?L. The reference range was not used to interpret this result as normal/abnormal. GRAN MAT (NEUT) % (test code = 770-8) 60.1 % IMM GRAN % (test code = 6981853350) 0.40 % LYMPH % (test code = 736-9) 31.3 % MONO % (test code = 5905-5) 6.0 % EOS % (test code = 713-8) 1.9 % BASO % (test code = 706-2) 0.3 % GRAN MAT x10^3(ANC) (test code = 3368989501) 6.96 10*3/uL 1.88-7.09 IMM GRAN x10^3 (test code = 4959966881) 0.05 10*3/uL 0-0.06 LYMPH x10^3 (test code = 731-0) 3.62 10*3/uL 1.32-3.29 H MONO x10^3 (test code = 742-7) 0.69 10*3/uL 0.33-0.92 EOS x10^3 (test code = 711-2) 0.22 10*3/uL 0.03-0.39 BASO x10^3 (test code = 704-7) 0.04 10*3/uL 0.01-0.07 Lab Interpretation (test code = 04150-1) [facility]XR CHEST 1 [id number] 18:17:08No acute cardiopulmonary abnormality. Preliminary Report Dictated [...] reviewed this study and agree with theabove report.[facility] HospitalLactic Acid Whole Wbjok3310-29-89 18:11:00* Test Item Value Reference Range Interpretation Comme nts LACTIC ACID (test code = 3431003823) 1.95 mmol/L 0.5-2.2 Lab Interpretation (test cod e = 85886-4) Normal [facility] HospitalCT ABDOMEN PELVIS WO [id number] 05:45:24No acute abdominopelvic abnormality. No urolithiasis. 2.5 [...] reviewed this study and agree with the abovereport.[facility] [id number] 03:10:00* Test Item Value Reference Range Interpretation Comme [facility] POCT PREG (test code = 1605) Negative On board controls acceptable with C Line (test code = 3574) Present POCT PREG LOT # (test code = 3575) [id number] POCT PREG TEST DATE ( test code = 3576) 03/07/2022 Lab Interpretation (test cod e = 18206-2) Normal [facility] with Gozhujpmjdwr7571-10-03 03:05:00* Test Item Value Reference Range Interpretation [...] 34.7 g/dL 31.6-35.1 RDW-SD (test code = 73244-2) 42.0 fL 39-49.9 RDW-CV (test code = 788-0) 13.5 % 12-15.5 PLT (test code = 777-3) See_Comment [Automated message] The system which generated this result transmitted reference range: 166 - 358 10*3/?L. The reference range was not used to interpret this result as normal/abnormal. MPV (test code = 48430-9) 9.8 fL 9.5-12.9 NRBC/100 WBC (test code = 1531349150) See_Comment [Automated message] The system which generated this result transmitted reference range: 0.0 - 10.0 /100 WBCs. The reference range was not used to interpret this result as normal/abnormal. NRBC x10^3 (test code = 0079318341) <0.01 See_Comment [Automated message] The system which generated this result transmitted reference range: 10*3/?L. The reference range was not used to interpret this result as normal/abnormal. GRAN MAT (NEUT) % (test code = 770-8) 66.2 % IMM GRAN % (test code = 0973551279) 0.60 % LYMPH % (test code = 736-9) 25.4 % MONO % (test code = 5905-5) 5.6 % EOS % (test code = 713-8) 1.9 % BASO % (test code = 706-2) 0.3 % GRAN MAT x10^3(ANC) (test code = 7889545376) 10.64 10*3/uL 1.88-7.09 H IMM GRAN x10^3 (test code = 6326290505) 0.09 10*3/uL 0-0.06 H LYMPH x10^3 (test code = 731-0) 4.09 10*3/uL 1.32-3.29 H MONO x10^3 (test code = 742-7) 0.90 10*3/uL 0.33-0.92 EOS x10^3 (test code = 711-2) 0.31 10*3/uL 0.03-0.39 BASO x10^3 (test code = 704-7) 0.05 10*3/uL 0.01-0.07 Lab Interpretation (test code = 91373-2) [facility] HospitalUrinalysis2021-02-04 02:56:00* Test Item Value Reference Range Interpretation Comme nts APPEARANCE (test code = 4729002605) Hazy Clear A COLOR (test code = 0090027444) Yellow Yellow PH (test code = 8466988004) 4.8-8.0 SP GRAVITY (test code = 4143942922) 1.003-1.030 GLU U QUAL (test code = 8924327354) Normal Normal BLOOD (test code = 5946808645) Negative Negative KETONES (test code = 1722030834) Negative Negative PROTEIN (test code = 2887-8) Negative Negative UROBILIN (test code = 2838965590) Normal Normal BILIRUBIN (test code = 4216970630) Negative Negative NITRITE (test code = 8841885125) Negative Negative LEUK MARC (test code = 6070984660) Negative Negative RBC/HPF (test code = 8682657234) See_Comment [Automated [employer] ge] The system which generated this result transmitted reference range: 0 - 3 HPF. The reference range was not used to interpret this result as normal/abnormal. WBC/HPF (test code = 4784916598) See_Comment [Automated [facility] ge] The system which generated this result transmitted reference range: 0 - 5 HPF. The reference range was not used to interpret this result as normal/abnormal. BACTERIA (test code = 6114103664) Few Negative A MUCOUS (test code = 8758629333) Slight Negative LPF A SQ EPITH (test code = 7282495045) HPF YEAST BUD (test code = 8203642957) See_Comment H [Automated messa ge] The system which generated this result transmitted reference range: <=1 HPF. The reference range was not used to interpret this result as normal/abnormal. Lab Interpretation (test code = 92544-0) [facility] [id number] 02:24:00* Test Item Value Reference Range Interpretation Comme nts TROPONIN I (test code = 1875069477) <0.012 See_Comment [Automated message] The system which [...] biotin. ? Lab Interpretation (test code = 56323-4) [facility] (ID NOW RAPID TESTING)2020-08-11 02:15:00* Test Item Value Reference Range Interpretation Comme nts SARS-CoV-2 Rapid ID NOW (test code = 40721-3) Not Detected Not Detected DARWIN (test code = DARWIN) ID NOW COVID-19 As say is an isothermal nucleic acid amplification test intended for the qualitative detection of nucleic acid from SARS-CoV-2 viral RNA in nasopharyngeal ([employer]NAMENT[employer] WORKER HELPER) specimens. It is used under Emergency Use [...] clinically indicated. Lab Interpretation (test code = 06303-3) Normal [facility] Metabolic Panel (NA, K, CL, CO2, GLUCOSE, BUN, CREATININE, CA)2020-08-11 02:13:00* Test Item Value Reference Range Interpretation Comme nts NA (test code = 9729540547) 137 mmol/L 135-145 K (test code = 2549887014) 4.0 mmol/L 3.5-5 CL (test code = 4729892126) 107 mmol/L 98-108 CO2 TOTAL (test code = 3285476433) 19 mmol/L 23-31 L AGAP (test code = 3802419228) 2-16 BUN (test code = 8881447731) 10 mg/dL 7-23 GLUCOSE (test code = 0141493187) 106 mg/dL 70-110 CREATININE (test code = 5771545141) 0.47 mg/dL 0.5-1.04 L CALCIUM (test code = 8837417007) 9.2 mg/dL 8.6-10.6 eGFR Calculation (Non-) (test code = 1718848250) mL/min/1.73m2 eGFR Calculation () (test code = 6718518907) mL/min/1.73m2 DARWIN (test code = DARWIN) Association [...] imaging tests). Lab Interpretation (test code = 49539-8) [facility] (ALB, T.PRO, BILI T, BU/BC, ALT, AST, ALK PHOS)2020-08-11 02:13:00* Test Item Value Reference Range Interpretation Comme nts TOTAL BILI (test code = 9609547707) 0.4 mg/dL 0.1-1.1 BILI UNCON (test code = 2685275338) 0.3 mg/dL 0.1-1.1 BILI CONJ (test code = 3891143453) 0.0 mg/dL 0-0.3 T PROTEIN (test code = 1867900062) 7.5 g/dL 6.3-8.2 ALBUMIN (test code = 5624273173) 4.4 g/dL 3.5-5 ALK PHOS (test code = 0067447664) 48 U/L 34-122 ALTv (test code = 1742-6) 12 U/L 5-35 AST(SGOT) (test code = 0661635655) 22 U/L 13-40 Lab Interpretation (test cod e = 10213-7) Normal [facility] HospitalLipase Gzkng5752-91-29 02:13:00* Test Item Value Reference Range Interpretation Comme nts LIPASE (test code = 5601527781) 78 U/L 0-220 Lab Interpretation (test cod e = 09604-7) Normal [facility] HospitalLactic Acid Whole Kbzui6926-44-08 02:05:00* Test Item Value Reference Range Interpretation Comme nts LACTIC ACID (test code = 0214718140) 1.47 mmol/L 0.5-2.2 Lab Interpretation (test cod e = 08021-0) Normal [facility] HospitalXR FOREARM 2 VW [id number] 14:31:40No acute bony abnormality. Soft tissue swelling. [...] reviewed this study and agree with the abovereport.[facility] ([facility] NOW RAPID TESTING)2020-08-07 14:18:00* Test Item Value Reference Range Interpretation Comme nts SARS-CoV-2 Rapid ID NOW (test code = 81741-9) Not Detected Not Detected DARWIN (test code = DARWIN) ID NOW COVID-19 As say is an isothermal nucleic acid amplification test intended for the qualitative detection of nucleic acid from SARS-CoV-2 viral RNA in nasopharyngeal ([employer]NAMENT[employer] WORKER HELPER) specimens. It is used under Emergency Use [...] clinically indicated. Lab Interpretation (test code = 75193-3) Normal [facility] HospitalTRFORMERLY [facility] [id number] 02:54:00* Test Item Value Reference Range Interpretation Comme nts TROPONIN I (test code = 7219040239) <0.012 See_Comment [Automated message] The system which [...] biotin. ? Lab Interpretation (test code = 04365-1) Normal [facility] HospitalLIPASE2020-12-25 02:37:00* Test Item Value Reference Range Interpretation Comme nts LIPASE (test code = 5511274043) 76 U/L 0-220 Lab Interpretation (test cod e = 96485-8) Normal [facility] HospitalURINALYSIS2020-12-25 01:54:00* Test Item Value Reference Range Interpretation Comme nts APPEARANCE (test code = 5180623489) Clear Clear COLOR (test code = 5203752097) Straw Yellow A PH (test code = 4458672404) 4.8-8.0 SP GRAVITY (test code = 0038007887) 1.003-1.030 GLU U QUAL (test code = 7897785740) Normal Normal BLOOD (test code = 6079572157) 3+ Negative A KETONES (test code = 5576968870) Negative Negative PROTEIN (test code = 2887-8) Negative Negative UROBILIN (test code = 3438858597) Normal Normal BILIRUBIN (test code = 2122046477) Negative Negative NITRITE (test code = 7772886688) Negative Negative LEUK MARC (test code = 8254141160) Negative Negative RBC/HPF (test code = 9145039867) See_Comment [Automated messa ge] The system which generated this result transmitted reference range: 0 - 3 HPF. The reference range was not used to interpret this result as normal/abnormal. WBC/HPF (test code = 7941516790) <1 See_Comment [Automated messa ge] The system which generated this result transmitted reference range: 0 - 5 HPF. The reference range was not used to interpret this result as normal/abnormal. BACTERIA (test code = 1711585415) Few Negative A MUCOUS (test code = 7873825380) Slight Negative LPF A SQ EPITH (test code = 7669155382) HPF Lab Interpretation (test code = 35853-3) [facility]normal [facility] HospitalCBC WITH [id number] 00:57:00* Test Item Value Reference Range Interpretation Comme nts WBC (test code = 6690-2) See_Comment [Automated messa ge] The system which generated this result transmitted reference range: 4.30 - 11.10 10*3/?L. The reference range was not used to interpret this result as normal/abnormal. RBC (test code = 789-8) See_Comment [Automated [employer] ge] The system which generated this result [...] 34.0 g/dL 31.6-35.1 RDW-SD (test code = 38242-7) 41.7 fL 39-49.9 RDW-CV (test code = 788-0) 13.2 % 12-15.5 PLT (test code = 777-3) See_Comment [Automated [employer] ge] The system which generated this result transmitted reference range: 166 - 358 10*3/?L. The reference range was not used to interpret this result as normal/abnormal. MPV (test code = 81806-3) 9.4 fL 9.5-12.9 L NRBC/100 WBC (test code = 3445412233) See_Comment [Automated [employer] ssage] The system which generated this result transmitted reference range: 0.0 - 10.0 /100 WBCs. The reference range was not used to interpret this result as normal/abnormal. NRBC x10^3 (test code = 2239084833) <0.01 See_Comment [Automated [employer] ge] The system which generated this result transmitted reference range: 10*3/?L. The reference range was not used to interpret this result as normal/abnormal. GRAN MAT (NEUT) % (test code = 770-8) 51.8 % IMM GRAN % (test code = 5318540741) 0.50 % LYMPH % (test code = 736-9) 40.7 % MONO % (test code = 5905-5) 4.0 % EOS % (test code = 713-8) 2.5 % BASO % (test code = 706-2) 0.5 % GRAN MAT x10^3(ANC) (test code = 4524449002) 5.38 10*3/uL 1.88-7.09 IMM GRAN x10^3 (test code = 5886568737) 0.05 10*3/uL 0-0.06 LYMPH x10^3 (test code = 731-0) 4.22 10*3/uL 1.32-3.29 H MONO x10^3 (test code = 742-7) 0.42 10*3/uL 0.33-0.92 EOS x10^3 (test code = 711-2) 0.26 10*3/uL 0.03-0.39 BASO x10^3 (test code = 704-7) 0.05 10*3/uL 0.01-0.07 Lab Interpretation (test code = 83202-0) [facility]normal [facility] HospitalADC,CLC OR LCC ONLY - INFLUENZA A & B DIRECT [id number] 00:51:00* Test Item Value Reference Range Interpretation Comme nts Influenza A (test code = 99962-0) Negative Negative Influenza B (test code = 98555-4) Negative Negative Lab Interpretation (test cod e = 20381-6) Normal [facility] HospitalPOCT [id number] 00:51:00* Test Item Value Reference Range Interpretation Comme nts POCT PREG (test code = 1605) negative On board controls acceptable with C Line (test code = 3574) present POCT PREG LOT # (test code = 3575) [id number] POCT PREG TEST DATE ( test code = 3576) 11/04/2021 Lab Interpretation (test cod e = 92197-8) Normal [facility] HospitalTROPONIN [id number] 00:46:00* Test Item Value Reference Range Interpretation Comme nts TROPONIN I (test code = 0707232099) <0.012 See_Comment [Automated message] The system which [...] biotin. ? Lab Interpretation (test code = 75553-7) Normal [facility] METABOLIC PANEL (NA, K, CL, CO2, GLUCOSE, BUN, CREATININE, CA)2020-07-01 00:46:00* Test Item Value Reference Range Interpretation Comme nts NA (test code = 8287829577) 141 mmol/L 135-145 K (test code = 3403361268) 3.8 mmol/L 3.5-5 CL (test code = 2153974601) 108 mmol/L 98-108 CO2 TOTAL (test code = 1934909658) 25 mmol/L 23-31 AGAP (test code = 8649146989) 2-16 BUN (test code = 4670755037) 10 mg/dL 7-23 GLUCOSE (test code = 8045215376) 92 mg/dL 70-110 CREATININE (test code = 2702095738) 0.58 mg/dL 0.5-1.04 CALCIUM (test code = 9224787653) 9.4 mg/dL 8.6-10.6 eGFR Calculation (Non-) (test code = 4873528667) mL/min/1.73m2 eGFR Calculation () (test code = 3549782163) mL/min/1.73m2 DARWIN (test code = DARWIN) Association [...] or urine or abnormalities in imaging tests). [facility] HospitalN-TERMINAL NIT-DUY6565-05-25 00:43:00* Test Item Value Reference Range Interpretation Comme nts NT-proBNP (test code = 3761917220) 332 pg/mL See_Comment H [Automated message] The system which generated this result transmitted reference range: <=125. The reference range was not used to interpret this result as normal/abnormal. DARWIN (test code = DARWIN) Biotin has been reported to cause a negative bias, interpret results relative to patient's use of biotin. Lab Interpretation (test code = 41462-4) Abnormal [facility] HospitalXR CHEST 1 [id number] 00:20:50No acute cardiopulmonary abnormality Preliminary Report Dictated [...] reviewed this study and agree with the abovereport.[facility] CERVICAL SPINE WO CPACRNFO6116-79-80 23:23:[address] EXAMINATION: CT [...] lung apices are unremarkable. IMPRESSIONUnremarkable cervical spine CT.[facility] Wgbc6018-01-94 01:50:00* Test Item Value Reference Range Interpretation Comme nts POCT PREG (test code = 1605) Negative On board controls acceptable with C Line (test code = 3574) Present POCT PREG LOT # (test code = 3575) [id number] POCT PREG TEST DATE ( test code = 3576) 10/05/2021 Lab Interpretation (test cod e = 22307-8) Normal [facility] HospitalJoan [id number] 01:24:00* Test Item Value Reference Range Interpretation Comme nts TROPONIN I (test code = 1352406385) <0.012 See_Comment [Automated message] The system which [...] biotin. ? Lab Interpretation (test code = 17302-0) Normal [facility]COVID[facility] (ID NOW RAPID TESTING)2020-06-13 01:22:00* Test Item Value Reference Range Interpretation Comme nts SARS-CoV-2 Rapid ID NOW (test code = 33034-2) Not Detected Not Detected DARWIN (test code = DARWIN) ID NOW COVID-19 As say is an isothermal nucleic acid amplification test intended for the qualitative detection of nucleic acid from SARS-CoV-2 viral RNA in nasopharyngeal ([employer]NAMENT[employer] WORKER HELPER) specimens. It is used under Emergency Use [...] clinically indicated. Lab Interpretation (test code = 93598-1) Normal [facility] HospitalD-UZKKG4662-20-26 01:16:00* Test Item Value Reference Range Interpretation Comments D-DIMER (test code = 8989721875) See_Comment [Automated message] The system which generated [...] a diagnosis. Lab Interpretation (test code = 68273-5) Normal [facility] HospitalBasi Metabolic Panel (NA, K, CL, CO2, GLUCOSE, BUN, CREATININE, CA)2020-06-13 01:13:00* Test Item Value Reference Range Interpretation Comme nts NA (test code = 3422799754) 137 mmol/L 135-145 K (test code = 9575489888) 4.2 mmol/L 3.5-5 CL (test code = 6513880190) 103 mmol/L 98-108 CO2 TOTAL (test code = 2514995263) 25 mmol/L 23-31 AGAP (test code = 7629396475) 2-16 BUN (test code = 2568358197) 11 mg/dL 7-23 GLUCOSE (test code = 1012174025) 98 mg/dL 70-110 CREATININE (test code = 1266363122) 0.52 mg/dL 0.5-1.04 CALCIUM (test code = 6162672188) 10.3 mg/dL 8.6-10.6 eGFR Calculation (Non-) (test code = 7345460851) mL/min/1.73m2 eGFR Calculation () (test code = 2487445043) mL/min/1.73m2 DARWIN (test code = DARWIN) Association [...] or urine or abnormalities in imaging tests). [facility] HospitalHep[facility] Function Panel (ALB, T.PRO, BILI T, BU/BC, ALT, AST, ALK PHOS)2020-06-13 01:13:00* Test Item Value Reference Range Interpretation Comme nts TOTAL BILI (test code = 0680516740) 0.5 mg/dL 0.1-1.1 BILI UNCON (test code = 6283155529) 0.3 mg/dL 0.1-1.1 BILI CONJ (test code = 1250998143) 0.0 mg/dL 0-0.3 T PROTEIN (test code = 6870749671) 7.3 g/dL 6.3-8.2 ALBUMIN (test code = 2932408299) 4.2 g/dL 3.5-5 ALK PHOS (test code = 5355408215) 85 U/L 34-122 ALTv (test code = 1742-6) 66 U/L 5-35 H AST(SGOT) (test code = 5624122845) 32 U/L 13-40 Lab Interpretation (test cod e = 29569-4) [facility]normal [facility] HospitalLipase Ptpxv0849-24-46 01:13:00* Test Item Value Reference Range Interpretation Comme nts LIPASE (test code = 3632726701) 60 U/L 0-220 Lab Interpretation (test cod e = 06060-8) Normal [facility] HospitalUrinalysis2020-12-07 01:03:00* Test Item Value Reference Range Interpretation Comme nts APPEARANCE (test code = 1200130830) Clear Clear COLOR (test code = 7528329379) Straw Yellow A PH (test code = 3690626922) 4.8-8.0 SP GRAVITY (test code = 0989897958) 1.003-1.030 GLU U QUAL (test code = 2799881915) Normal Normal BLOOD (test code = 3125476946) Negative Negative KETONES (test code = 9431099815) Negative Negative PROTEIN (test code = 2887-8) Negative Negative UROBILIN (test code = 3841338233) Normal Normal BILIRUBIN (test code = 3770812675) Negative Negative NITRITE (test code = 7395812540) Negative Negative LEUK MARC (test code = 9873969096) Negative Negative RBC/HPF (test code = 8731647878) See_Comment [Automated [employer] ge] The system which generated this result transmitted reference range: 0 - 3 HPF. The reference range was not used to interpret this result as normal/abnormal. WBC/HPF (test code = 6305597759) See_Comment [Automated messa ge] The system which generated this result transmitted reference range: 0 - 5 HPF. The reference range was not used to interpret this result as normal/abnormal. BACTERIA (test code = 0425145827) Negative Negative MUCOUS (test code = 9009399655) Slight Negative LPF A SQ EPITH (test code = 7576109521) HPF Lab Interpretation (test code = 42139-9) Abnormal [facility] with Qmppmrttfugz7014-35-12 00:55:00* Test Item Value Reference Range Interpretation [...] 34.5 g/dL 31.6-35.1 RDW-SD (test code = 49926-5) 42.5 fL 39-49.9 RDW-CV (test code = 788-0) 13.5 % 12-15.5 PLT (test code = 777-3) See_Comment [Automated messa ge] The system which generated this result transmitted reference range: 166 - 358 10*3/?L. The reference range was not used to interpret this result as normal/abnormal. MPV (test code = 63177-0) 10.1 fL 9.5-12.9 NRBC/100 WBC (test code = 8706352973) See_Comment [Automated me ssage] The system which generated this result transmitted reference range: 0.0 - 10.0 /100 WBCs. The reference range was not used to interpret this result as normal/abnormal. NRBC x10^3 (test code = 3256209713) <0.01 See_Comment [Automated messa ge] The system which generated this result transmitted reference range: 10*3/?L. The reference range was not used to interpret this result as normal/abnormal. GRAN MAT (NEUT) % (test code = 770-8) 61.9 % IMM GRAN % (test code = 6542016468) 0.60 % LYMPH % (test code = 736-9) 30.6 % MONO % (test code = 5905-5) 5.2 % EOS % (test code = 713-8) 1.4 % BASO % (test code = 706-2) 0.3 % GRAN MAT x10^3(ANC) (test code = 5250102048) 8.03 10*3/uL 1.88-7.09 H IMM GRAN x10^3 (test code = 7926790990) 0.08 10*3/uL 0-0.06 H LYMPH x10^3 (test code = 731-0) 3.97 10*3/uL 1.32-3.29 H MONO x10^3 (test code = 742-7) 0.68 10*3/uL 0.33-0.92 EOS x10^3 (test code = 711-2) 0.18 10*3/uL 0.03-0.39 BASO x10^3 (test code = 704-7) 0.04 10*3/uL 0.01-0.07 Lab Interpretation (test code = 30143-7) [facility]normal [facility]COVID[facility] (ID NOW RAPID TESTING)2020-05-17 00:27:00* Test Item Value Reference Range Interpretation Comme nts SARS-CoV-2 Rapid ID NOW (test code = 27689-1) Not Detected Not Detected DARWIN (test code = DARWIN) ID NOW COVID-19 As say is an isothermal nucleic acid amplification test intended for the qualitative detection of nucleic acid from SARS-CoV-2 viral RNA in nasopharyngeal ([employer] WORKER HELPER) specimens. It is used under Emergency Use [...] clinically indicated. Lab Interpretation (test code = 20760-2) Normal [facility] Metabolic Panel (NA, K, CL, CO2, GLUCOSE, BUN, CREATININE, CA)2020-05-17 00:00:00* Test Item Value Reference Range Interpretation Comme nts NA (test code = 5394540874) 136 mmol/L 135-145 K (test code = 2026734752) 3.6 mmol/L 3.5-5 CL (test code = 9437382973) 103 mmol/L 98-108 CO2 TOTAL (test code = 5283747624) 26 mmol/L 23-31 AGAP (test code = 8955139348) 2-16 BUN (test code = 4999108606) 13 mg/dL 7-23 GLUCOSE (test code = 4872459561) 130 mg/dL 70-110 H CREATININE (test code = 9186775148) 0.58 mg/dL 0.5-1.04 CALCIUM (test code = 0962221233) 9.9 mg/dL 8.6-10.6 eGFR Calculation (Non-) (test code = 3293757625) mL/min/1.73m2 eGFR Calculation () (test code = 9195216806) mL/min/1.73m2 DARWIN (test code = DARWIN) Association [...] imaging tests). Lab Interpretation (test code = 57338-1) [facility]normal [facility] (ALB, T.PRO, BILI T, BU/BC, ALT, AST, ALK PHOS)2020-05-17 00:00:00* Test Item Value Reference Range Interpretation Comme nts TOTAL BILI (test code = 0705837764) 0.4 mg/dL 0.1-1.1 BILI UNCON (test code = 5515714988) 0.3 mg/dL 0.1-1.1 BILI CONJ (test code = 1512612210) 0.0 mg/dL 0-0.3 T PROTEIN (test code = 9345839164) 7.3 g/dL 6.3-8.2 ALBUMIN (test code = 3229873415) 4.3 g/dL 3.5-5 ALK PHOS (test code = 2095058797) 118 U/L 34-122 ALTv (test code = 1742-6) 119 U/L 5-35 H AST(SGOT) (test code = 3314445559) 47 U/L 13-40 H Lab Interpretation (test cod e = 65607-6) [facility]normal [facility] HospitalLipase Qroac6303-56-74 00:00:00* Test Item Value Reference Range Interpretation Comme nts LIPASE (test code = 4808287181) 70 U/L 0-220 Lab Interpretation (test cod e = 12156-4) Normal [facility] with Osqcdhgidbgd9829-39-70 23:49:00* Test Item Value Reference Range Interpretation [...] 33.3 g/dL 31.6-35.1 RDW-SD (test code = 99748-7) 42.8 fL 39-49.9 RDW-CV (test code = 788-0) 13.5 % 12-15.5 PLT (test code = 777-3) See_Comment [Automated messa ge] The system which generated this result transmitted reference range: 166 - 358 10*3/?L. The reference range was not used to interpret this result as normal/abnormal. MPV (test code = 55222-5) 9.8 fL 9.5-12.9 NRBC/100 WBC (test code = 5956330331) See_Comment [Automated me ssage] The system which generated this result transmitted reference range: 0.0 - 10.0 /100 WBCs. The reference range was not used to interpret this result as normal/abnormal. NRBC x10^3 (test code = 0652476960) <0.01 See_Comment [Automated me ssage] The system which generated this result transmitted reference range: 10*3/?L. The reference range was not used to interpret this result as normal/abnormal. GRAN MAT (NEUT) % (test code = 770-8) 62.5 % IMM GRAN % (test code = 1229497576) 0.50 % LYMPH % (test code = 736-9) 29.8 % MONO % (test code = 5905-5) 5.6 % EOS % (test code = 713-8) 1.1 % BASO % (test code = 706-2) 0.5 % GRAN MAT x10^3(ANC) (test code = 5731326919) 6.65 10*3/uL 1.88-7.09 IMM GRAN x10^3 (test code = 9376136533) 0.05 10*3/uL 0-0.06 LYMPH x10^3 (test code = 731-0) 3.17 10*3/uL 1.32-3.29 MONO x10^3 (test code = 742-7) 0.59 10*3/uL 0.33-0.92 EOS x10^3 (test code = 711-2) 0.12 10*3/uL 0.03-0.39 BASO x10^3 (test code = 704-7) 0.05 10*3/uL 0.01-0.07 [facility] HospitalACETAMINOPHEN2020-11-08 08:24:00* Test Item Value Reference Range Interpretation Comme nts ACETAMINOP (test code = 0892276099) 21.0 ug/mL 10-30 DARWIN (test code = DARWIN) Toxic: Greater joan n 200 ug/mL @ 4 hour post ingestion or greater than 50 ug/mL @ 12 hour post ingestion Lab Interpretation (test code = 58329-5) Normal [facility] HospitalETHANOL2020-11-08 06:37:00* Test Item Value Reference Range Interpretation Comme nts ALCOHOL (test code = 9210635684) <10 mg/dL DARWIN (test code = DARWIN) <10 Gsmdjdpc44-537 Toxic>100 Depression of DINING SERVICE WORKER>400 Fatalities Reported [facility] HospitalBasi Metabolic Panel (NA, K, CL, CO2, GLUCOSE, BUN, CREATININE, CA)2020-05-15 06:35:00* Test Item Value Reference Range Interpretation Comme nts NA (test code = 7507358600) 137 mmol/L 135-145 K (test code = 7449629913) 4.0 mmol/L 3.5-5 CL (test code = 3330572005) 106 mmol/L 98-108 CO2 TOTAL (test code = 8072041512) 25 mmol/L 23-31 AGAP (test code = 2610117975) 2-16 BUN (test code = 6182537755) 9 mg/dL 7-23 GLUCOSE (test code = 6342801103) 95 mg/dL 70-110 CREATININE (test code = 6610378925) 0.53 mg/dL 0.5-1.04 CALCIUM (test code = 2124041452) 9.0 mg/dL 8.6-10.6 eGFR Calculation (Non-) (test code = 6705396201) mL/min/1.73m2 eGFR Calculation () (test code = 0136113600) mL/min/1.73m2 DARWIN (test code = DARWIN) Association [...] or urine or abnormalities in imaging tests). [facility] (ALB, T.PRO, BILI T, BU/BC, ALT, AST, ALK PHOS)2020-05-15 06:35:00* Test Item Value Reference Range Interpretation Comme nts TOTAL BILI (test code = 2723415724) 0.4 mg/dL 0.1-1.1 BILI UNCON (test code = 5678221488) 0.2 mg/dL 0.1-1.1 BILI CONJ (test code = 0013306705) 0.0 mg/dL 0-0.3 T PROTEIN (test code = 4630637502) 6.3 g/dL 6.3-8.2 ALBUMIN (test code = 4305182482) 3.8 g/dL 3.5-5 ALK PHOS (test code = 4329956412) 117 U/L 34-122 ALTv (test code = 1742-6) 179 U/L 5-35 H AST(SGOT) (test code = 6076399208) 194 U/L 13-40 H Lab Interpretation (test cod e = 06217-1) [facility]normal [facility] HospitalLipase Dczti9235-62-66 06:35:00* Test Item Value Reference Range Interpretation Comme nts LIPASE (test code = 4999286402) 92 U/L 0-220 Lab Interpretation (test cod e = 62669-3) Normal [facility] HospitalaPTT2020-11-08 06:22:00* Test Item Value Reference Range [...] 30 seconds. Lab Interpretation (test code = 51086-3) Normal [facility] HospitalUrinalysis2020-11-08 06:21:00* Test Item Value Reference Range Interpretation Comme nts APPEARANCE (test code = 8463835393) Clear Clear COLOR (test code = 3022771038) Yellow Yellow PH (test code = 7555708916) 4.8-8.0 SP GRAVITY (test code = 3671321333) 1.003-1.030 GLU U QUAL (test code = 4463365243) Normal Normal BLOOD (test code = 3039954614) Negative Negative KETONES (test code = 5615731251) Negative Negative PROTEIN (test code = 2887-8) Negative Negative UROBILIN (test code = 2989530090) Normal Normal BILIRUBIN (test code = 2168443793) Negative Negative NITRITE (test code = 3367384115) Negative Negative LEUK MARC (test code = 6212552192) Negative Negative RBC/HPF (test code = 1079439000) See_Comment [Automated messa ge] The system which generated this result transmitted reference range: 0 - 3 HPF. The reference range was not used to interpret this result as normal/abnormal. WBC/HPF (test code = 0778405995) <1 See_Comment [Automated messa ge] The system which generated this result transmitted reference range: 0 - 5 HPF. The reference range was not used to interpret this result as normal/abnormal. BACTERIA (test code = 9173320220) Negative Negative MUCOUS (test code = 5171566611) Slight Negative LPF A SQ EPITH (test code = 6665635811) HPF Lab Interpretation (test code = 87899-4) [facility] / [id number] 06:20:00 * Test Item Value Reference Range [...] the indications. Lab Interpretation (test code = 81413-2) [facility] - DRUG SCREEN [id number] 06:19:00* Test Item Value Reference Range Interpretation Comme nts BENZO U (test code = 4240751156) Presumptive Positive Negative A ROSA U (test code = 9422903759) Negative Negative AMPHET (test code = 3785172788) Negative Negative THC (test code = 0761025177) Negative Negative METHADONE (test code = 5570621963) Negative Negative Meth U (test code = 0892013859) Negative Negative OPIATES (test code = 2379092361) Negative Negative Cocaine Metabolite (test code = 4471840013) Negative Negative PROPOXY (test code = 4593303089) Negative Negative Tric U (test code = 9059665712) Negative Negative PCP (test code = 9437061227) Negative Negative OXYCOD (test code = 2604811314) Negative Negative DARWIN (test code = DARWIN) [...] legal testing). Lab Interpretation (test code = 71469-8) Abnormal [facility] with Ndptejocmjyp6804-78-42 06:07:00* Test Item Value Reference Range Interpretation Comme nts WBC (test code = 6690-2) See_Comment [Automated Tonaraa ge] The system which generated this result transmitted reference range: 4.30 - 11.10 10*3/?L. The reference range was not used to interpret this result as normal/abnormal. RBC (test code = 789-8) See_Comment [Automated Tonaraa ge] The system which generated this result [...] 34.3 g/dL 31.6-35.1 RDW-SD (test code = 69872-7) 43.4 fL 39-49.9 RDW-CV (test code = 788-0) 13.7 % 12-15.5 PLT (test code = 777-3) See_Comment [Automated messa ge] The system which generated this result transmitted reference range: 166 - 358 10*3/?L. The reference range was not used to interpret this result as normal/abnormal. MPV (test code = 90498-8) 9.7 fL 9.5-12.9 NRBC/100 WBC (test code = 0586059502) See_Comment [Automated [employer] ssage] The system which generated this result transmitted reference range: 0.0 - 10.0 /100 WBCs. The reference range was not used to interpret this result as normal/abnormal. NRBC x10^3 (test code = 1141429896) <0.01 See_Comment [Automated Tonaraa ge] The system which generated this result transmitted reference range: 10*3/?L. The reference range was not used to interpret this result as normal/abnormal. GRAN MAT (NEUT) % (test code = 770-8) 50.6 % IMM GRAN % (test code = 4420063438) 0.20 % LYMPH % (test code = 736-9) 42.1 % MONO % (test code = 5905-5) 5.5 % EOS % (test code = 713-8) 1.2 % BASO % (test code = 706-2) 0.4 % GRAN MAT x10^3(ANC) (test code = 0010929954) 4.31 10*3/uL 1.88-7.09 IMM GRAN x10^3 (test code = 5400987905) <0.03 0-0.06 LYMPH x10^3 (test code = 731-0) 3.58 10*3/uL 1.32-3.29 H MONO x10^3 (test code = 742-7) 0.47 10*3/uL 0.33-0.92 EOS x10^3 (test code = 711-2) 0.10 10*3/uL 0.03-0.39 BASO x10^3 (test code = 704-7) 0.03 10*3/uL 0.01-0.07 Lab Interpretation (test code = 42961-0) [facility] [id number] 05:53:00* Test Item Value Reference Range Interpretation Comme nts POCT PREG (test code = 1605) Negative On board controls acceptable with C Line (test code = 3574) Present POCT PREG LOT # (test code = 3575) HCG [id number] POCT PREG TEST DATE ( test code = 3576) 10/05/2021 Lab Interpretation (test cod e = 93803-9) Normal [facility] History and Physical Notes Date/Time Note [...] 100 mL/hr at 02/15/237, 1,000 mL at 02/15/232246 morpHINE (2 mg/mL) [...] the ACR Incidental Findings Committee;Journal of the [employer] Volume 7, Issue 10, Pages 222-547, April 2010). CHEST 1 VW Result Date: [...] process is identified in the chest. RL: 7011 END OF REPORT Assessment and plan: Principal [...] MD 02/16/2023 IM-INTERNAL MEDICINE STAFF [facility] - Health Notes <thead> Date/Time Note Provider [...] with steady gait, in no apparent distress, [facility] 2024-07-19 00:57:31 ERP at bedside. [facility] 2024-07-19 00:09:25 07/18/24 2356 07/19/24 0000 07/19/24 0008 Orthostatic Vitals BP 132/56 (!) 139/92 (!) 157/112 BP Location Left arm Left arm Right leg Position Lying Sitting Standing Pulse 79 78 78 NYA Merrill RN [facility] 2024-07-18 23:44:12 Patient states "feeling like crap. Every time I stand up everything gets dizzy, black, and I feel like I am going to pass out." [facility] 2024-07-18 22:39:11 Pt brought in by [...] and pain in back. Pt went to [facility] yesterday and they said she was low on potassium (was given 4 tablets of potassium). Pt took home medications today ERY WORKER Shaneka Atkinson RN [facility] 2024-07-04 01:30:39 PT D/C home. GCS15, VS [...] someone drive her home. NYA Ayala RN [facility] 2024-07-03 19:51:20 Pt arrives ambulatory to ED c/o N/V/D x3 days and says today began having right side abdominal pain. NYA Rios RN [facility] 2024-06-21 02:58:12 Pt given printed and verbal [...] with steady gait, in no apparent distress. ERY WORKER [facility] 2024-06-21 01:57:43 Pt arrives ambulatory to ED c/o "spider bite" upper right abdomen area. She says she squeezed it right before coming in and puss came out of it, leaving a black hole. So she came in to be evaled. NYA Rios RN [facility] 2024-06-15 00:27:31 Pt given printed and verbal [...] in no apparent distress, NYA Delgadillo RN [facility] 2024-06-14 22:55:00 Report given to JAMES Delgadillo NYA Emery RN [facility] 2024-06-14 21:23:27 Patient arrived ambulatory to ED c/o abdominal pain that started Saturday. Patient recently had heart cath placed on . States "haven't been keeping anything down. I can't even keep my medications down." NYA Merrill RN [facility] 2024-06-07 02:39:24 Pt given printed and verbal [...] in no apparent distress, NYA Delgadillo RN [facility] 2024-06-07 00:46:48 Report to Leona RAMIREZ. NYA Montelongo RN [facility] 2024-06-06 22:01:17 Patient arrived ambulatory to ED c/o chest pain that started around 1900 tonight. 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 Sharp chest pain that radiates to left shoulder. NYA Merrill RN [facility] 2024-05-28 13:02:38 Chief Complaint Patient presents with Shoulder Pain Pt complains of left shoulder pain that has been in pain for last 3 years. Pain is getting worse. No injury. No occupation. Pt has been doing PT for shoulder. She is also taking methocarbamol for pain however it is not helping. [facility] 2024-05-19 13:33:08 Patient given discharge instructions with readback, discussed prescriptions and follow up care. . Steady gait with NAD noted. NYA Davila RN [facility] 2024-05-19 11:42:01 Patient had a fall on Saturday and came into ED to be seen. Had pain meds and scan performed with no significant findings. Patient called her PCP and they told her to go to ER because she could have a concussion or just feel worse. NYA Cronin RN [facility] 2024-05-18 10:27:22 Chief Complaint Patient presents with Physical Patient is fasting. No other issues to discuss Jennifer Del Castillo MA II [facility] 2024-05-17 22:18:24 Pt given printed and verbal [...] in no apparent distress, NYA Delgadillo RN [facility] 2024-05-17 20:40:54 Okay to release information to father Piyush Roca per patient NYA Atkinson RN [facility] 2024-05-17 20:18:[address] scan and brought to [facility] with RN and trauma team. Continuous cardiac monitoring and serial vital signs monitored by Santi RAMIREZ. Santi Delgadillo RN [facility] 2024-05-17 19:58:[address] scan with RN and trauma team. Continuous cardiac monitoring and serial vital signs monitored by Santi RAMIREZ. Santi Delgadillo RN [facility] 2024-05-17 18:55:00 Received report from Juliano RAMIREZ [facility] 2024-05-17 18:35:54 Report received from EMS. Trauma protocol initiated. Trauma team members at bedside, primary and secondary survey in progress. Pt placed on continuous cardiac monitoring, pulse oximetry, and serial vital signs. Wellington Dorantes RN [facility] 2024-05-17 18:31:04 Patient arrived by [facility], tripped over a floor tile and hit the occipital area. Unsure of LOC. 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 NYA Dorantes RN [facility] 2024-05-07 21:32:31 Patient discharged to home. [...] in no apparent distress. Cameron Posada RN [facility] 2024-05-07 18:45:11 Pt arrived ambulatory with complaints of lower back pain, lower abdominal pain, and dysuria since yesterday. 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, [facility]- DIAGNOSIS: UTI, GASTROENTERITIS PRESCRIPTION: ZOFRAN AND MACROBID PER PRESCRIPTION DETAILS SENT TO [facility]: ROCEPHIN GIVEN IN ER FOLLOW UP: PRIMARY [...] NO PHYSICIAN MONTSERRAT TERRAZAS MD Work Phone: [address] [address] CARLOS SOLANO MD Work Phone: [address] [place] [phone] ENTER NAME IN NOTES OTHER Future Procedures [...] 11:00pm DISCHARGE PATIENT May 13, 2023 3:41pm Norme mber 2022 Cardiac, BP, Pulse Ox Monitor [...] 2022 Resuscitation Status June 05, 2023 12:12am November 29th, 2023 12:08am CARDIOLOGY CONSULT June 05, 2023 7:37am No vember 2022 DISCHARGE PATIENT June 06, 2023 11:53am No vember 2022 NPO except Meds August 31, 2023 6:49pm Febru 2023 6:45pm Insert Peripheral IV Access August [...] is unavailable Patient Instructions <tbody> Otitis Externa, Mubq-ie-Xpda Allergic Rhinitis, Adult, Ea sy-to-Read Ovarian Cyst, Dkme-fq-Aofn Abdominal Pain, Adult, Easy- to-Read Renal Mass Nonspecific Chest Pain, Adul t, Zund-vv-Vcvc Acetaminophen; Hydrocodone t ablets or capsules Sucralfate tablets Pantoprazole tablets Ciprofloxacin tablets Nonspecific Chest Pain, Adul t, Felr-pt-Ryga Alprazolam tablets Trazodone Tablets Aspirin Tablets Urinary Tract Infection, Milton lt, Avpq-nw-Nmfz Dehydration, Adult, Easy-to- Read Urinary Tract Infection, [place] lt, Uuil-le-Uuuv [facility] [id number] 20:37:07 Pt given printed and verbal discharge [...] gait, in no apparent distress Renato Doan [facility]badyo8141-91-28 18:50:37 Nurse Report Report given to renato. Chief complaint, assessment findings, infusion verify and orders reviewed. Plan of care discussed. Lola Reynoso RN Lola Reynoso [facility] CenterDungkk7857-29-77 17:27:35 Pt arrived ambulatory complains of abdominal pain and points to her left upper abdominal. Pt states that last time she had this type of pain it was pancreatitis. Reports pain started at 1300 and reports pain is 9/10 and hurts whenever she eats. Harriett Mejia [facility] CenterUztxbb0144-72-01 11:11:13 Chief Complaint Patient presents with Shoulder Pain Left shoulder pain with limited range of motion x 6 months, takes OTC tylenol for the pain as needed but pain is getting worse. 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 Not working currently [facility] Ospikr3486[facility]77-47 09:19:27 Chief Complaint Patient presents with [facility] ER follow up with admission on 12/04/2023 for chest pains. She had a stent placed by Dr. Arthur. Jennifer Del Castillo MA II Jennifer VencesMarcio Bipdfo7212-32-92 10:49:31 Chief Complaint Patient presents with Anxiety Follow up on anxiety/depression. She states that it has gotten worse since last visit. She had an appointment with January this morning and it was canceled due to internet outage. Jennifer Del Castillo MA II Jennifer Cancino Jrnvrn5860-75-83 13:21:02 Chief Complaint Patient presents with [facility] told her she needed to go to a different doctor because they could not give her anything else Marbella Oh LVN KelleeMarcio Htjdup7311-73-40 00:41:45 Pt given printed and verbal discharge [...] & in no apparent distress. Becky Rios [place] 611614-04-04 21:25:46 Pt arrived ambulatory but states feeling like she is going to pass out, Pt placed in ED wheelchair. Pt c/o " I have pain in my back on the left side, it mark when I pee, Im nauseous, I feel like Im going to pass out and I have been crapping on myself." Shaneka Atkinson [place] 611613-12-25 22:58:41 Pt discharged with diagnosis of RUQ abd pain and chronic abd pain. Printed and verbal instructions reviewed with and given to pt. Prescriptions given x 2. Pt verbalized understanding of teaching, medications, and recommended follow-up. Denies questions or concerns at this time. Pt ambulatory at discharge. Appears in no apparent distress. No ataxia noted. ERY WORKER Adeline Floyd [facility] CenterKfmokq9895-22-37 19:46:03 Pt states sharp pain to the RLQ that started today around noon, pt denies any urinary symptoms, vomiting X 2 ERY WORKER Razia Yost [place] 611613-09-03 00:14:00 Awake, alert oriented X4, respiratory even [...] noted upon discharge Pt ambulated to the [facility] with steady gait Razia Yost [place] 611613-09-02 23:06:10 Received report from Evy RAMIREZ, assuming care. Brandy Lou [place] [address]-09-02 22:38:[address] scan done. Patient states LQ abdominal pain now 01/14. T Guanaco Caceres [place] 611613-09-02 22:00:00 POCT test negative. Patient states RLQ abdominal pain improved briefly with IV Morphine administration, then returned at 03/17. Dr Richards informed, and patient medicated as ordered with Fentanyl 75 mcg slow IVP. [place] [address]-09-02 21:00:00 Medicated as per order with Zofran 4 mg slow IVP and Morphine 4 mg slow IVP for RLQ abdominal pain 03/17. [place] [address]-09-02 20:17:52 Pt arrived ambulatory with complaints of RLQ abd pain since yesterday. Pt reports N/V/D. Last took Tylenol at 3pm. Denies dysuria but reports frequency. Hx: Anxiety, Depression, PTSD, Pancreatitis Aline Lou [place] [address]67-08-26 01:30:22 Discharged home ambulatory. Home instructions given. John Ventura [facility] CenterTnjbom6013-88-22 19:32:44 Pt CO of N/V, left lower back pain, painful urination and diarrhea since yesterday, states she was admitted last week for pancreatitis. Pt already promethazine tablets today with no relief. 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 treatment: None Travel and Exposure Screening: Symptoms Does patient have any of these symptoms?: (not recorded) Exposure Screening Has patient had contact with someone with a communicable disease in the last month?: (not recorded) Diseases exposed to:: (not recorded) Is Patient ?: (not recorded) Exposure Date: (not recorded) Chief Complaint: Chief Complaint Patient presents with Abdominal Pain History of Present Illness: Charity Rcoa is a 43 year old femaleh who [...] History provided by: Patient and medical records financial recording clerk used: No Abdominal Pain Pain location: Generalized [...] adenoma on noncontrast imaging. RL: 460 AFC: 38804 Lab Results: Lab Results CBC WITH DIFF [...] POCT PREG TEST DATE COMP. METABOLIC PANEL (50441) NA 139 135 - 145 mmol/L K [...] CONTRAST CBC WITH DIFF COMP. METABOLIC PANEL (85701) LIPASE URINALYSIS POCT TEST Orders Placed This [...] signed by: Olivia Garcia MD 03/02/23 0122 T [facility]0985[facility]98 02:22:03 Pt given printed and verbal discharge [...] in no apparent distress, T Linda Ayala [facility] CenterKxfqla2255-85-32 22:53:36 Pt arrived ambulatory with complaints of [...] be from her anxiety. T Aline Lou [facility] CenterWmeqjr4359-18-53 15:59:15 Problem: Pain Goal: Control of pain [...] Goal: Effective communication Outcome: Adequate for discharge [facility] Beata Lamar [facility] CenterYjsqoh5117-47-96 00:21:19 Problem: Pain Goal: Control of pain [...] Goal: Effective communication Outcome: Progressing as expected [facility] 16:55:55 Problem: Pain Goal: Control of pain [...] Goal: Effective communication Outcome: Progressing as expected [facility]2023-08-12 03:35:03 Problem: Pain Goal: Control of [...] Goal: Effective communication Outcome: Progressing as expected [facility]2023-08-11 19:41:18 Nurse Report Report given to JAMES Gatica. Chief complaint, assessment findings, infusion verify and orders reviewed. Plan of care discussed with both nurses. Stacie Man RN [facility] Stacie Man [facility] CenterFwraih4866-25-59 13:40:01 CC: patient presents to the ER [...] amb without assistance. Appears in no distress. 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 CHEST 1 VW Final Result [...] process is identified in the chest. RL: 1505 END OF REPORT Lab Results: reviewed by ar Mild leukocytosis, lipase 2048, liver enzymes WNL [...] 0.01 - 0.07 10*3/uL COMP. METABOLIC PANEL (02245) - Abnormal NA 138 135 - 145 [...] INTERPRETATION CBC WITH DIFF COMP. METABOLIC PANEL (49567) LIPASE Orders Placed This Encounter Medications ibuprofen [...] ED Physician in the absence of a greenbelt: yes Previous ECG: Previous ECG: Unavailable Interpretation: [...] this a planned re-admission?: No Treatment Team: [facility] [[id number]] Is this patient COVID positive or a patient under investigation (PUI)?: No Electronically signed by: Leeanne Wise NP 02/15/231910 Associated attestation - Bushra Rios DO - 02/16/2023 7:30 AM CDT I was personally available for consultation in the Emergency Department during this encounter and patient evaluation by Leeanne Wise. [facility]
[2024-09-06 02:18] LABS: Absolute Basophils 0.1 K/uL (0-0.5); Absolute Eosinophils 0.2 K/uL (0-0.5); Absolute Lymphocytes (CBC) 2.9 K/uL (0.7-4.9); Absolute Monocytes 0.6 K/uL (0.1-1.3); Absolute Neutrophil 6.7 K/uL (1.8-8.0); Basophils % 1.3 % (0-1.3); Eosinophils % 1.7 % (0-4.4); Hematocrit 34.8 % (36.0-45.0); Hemoglobin 11.7 g/dL (12.0-15.0); Lymphocytes % 27.5 % (15.3-44.8); MCH 26.3 pg (27.0-35.0); MCHC 33.6 g/dL (32.0-36.0); MCV 78.2 fL (80-100); MPV 7.4 fL (7.6-11.3); Monocytes % 5.9 % (3.3-12.3); Neutrophils % 63.6 % (41.7-73.7); Nucleated Red Blood Cells % 0.1 % (0-0); Platelets 322 thou/uL (152-406); RBC Red Blood Cell Count 4.45 M/uL (3.86-4.86); Red Cell Distribution Width 16.8 % (12.1-15.2)
[2024-09-06 02:29] LABS: ALT/SGPT 20 U/L (13-56); Albumin 2.8 g/dL (3.4-5.0); Albumin/Globulin Ratio 0.8 (1.1-1.8); Alkaline Phosphatase 69 U/L (45-117); Anion Gap 9.3 mEq/L (5.0-15.0); BUN Blood Urea Nitrogen 6 mg/dL (7-18); Bicarbonate 23 mEq/L (21-32); Bilirubin Total 0.2 mg/dL (0.2-1.0); Globulin 3.5 g/dL (2.3-3.5); Glomerular Filtration Rate 113 ml/min (=/>90); Glucose Level 108 mg/dL (74-106); Lipase 34 U/L (13-75); Magnesium 1.9 mg/dL (1.6-2.4); NT PRO-BNP 38 pg/mL (<125); Potassium 3.3 mEq/L (3.5-5.1); Protein, Total 6.3 g/dL (6.4-8.2); Sodium Level 140 mEq/L (136-145); Troponin High Sensitivity 6.3 pg/mL (<58.9)
[2024-09-06 02:30] LABS: AST/SGOT < 10 U/L (15-37); Bilirubin Direct < 0.2 mg/dL (0-0.2)
--- NOTE | 2024-09-06 02:34 | ER ---
Nurse's Notes [facility] Name: Charity Hanks Age: 44 yrs Sex: Female : 1980 Arrival Date: 09/06/2024 Time: 00:40 Bed 5 Private MD: Diagnosis: Chest pain Presentation: 09/06 00:44 Chief complaint: Patient states: c/o CP and lower abdominal pain. Coronavirus screen: al5 At this time, the client does not indicate any symptoms associated with coronavirus-19. Ebola Screen: No symptoms or risks identified at this time. Initial Sepsis Screen: Does the patient meet any 2 criteria? No. Patient's initial sepsis screen is negative. Does the patient have a suspected source of infection? No. Patient's initial sepsis screen is negative. Risk Assessment: Do you want to hurt yourself or someone else? Patient reports no desire to harm self or others. Onset of symptoms was September 06, 2024. 00:44 Method Of Arrival: EMS: [facility] al5 00:44 Acuity: CARLOS 2 al5 00:47 Care prior to arrival: Medication(s) given: ASA, 81 mg, x 4. al5 Triage Assessment: 00:47 General: Appears in no apparent distress. uncomfortable, Behavior is cooperative. Pain: al5 Complains of pain in chest, suprapubic area, right lower quadrant and left lower quadrant. EENT: No signs and/or symptoms were reported regarding the EENT system. Neuro: Level of Consciousness is awake, alert, obeys commands, Oriented to person, place, time, situation. Cardiovascular: Reports chest pain, Capillary refill < 3 seconds Patient's skin is warm and dry. Rhythm is sinus rhythm. Respiratory: Airway is patent Respiratory effort is even, Respiratory pattern is regular, symmetrical, slightly labored. GI: Abdomen is non-distended, obese, Reports lower abdominal pain. : No signs and/or symptoms were reported regarding the genitourinary system. Derm: Skin is intact, is healthy with good turgor, Skin is pink, warm \T\ dry. normal. Musculoskeletal: No signs and/or symptoms reported regarding the musculoskeletal system. 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 - Infectious Disease History:: Denies. - Social history:: Smoking status: Patient reports the use of cigarette tobacco products, smokes one-half pack cigarettes per day. Screenin:49 [facility] ED Fall Risk Assessment (Adult) History of falling in the last 3 months, al5 including since admission No falls in past 3 months (0 pts) Confusion or Disorientation No (0 pts) Intoxicated or Sedated No (0 pts) Impaired Gait No (0 pts) Mobility Assist Device Used No (0 pt) Altered Elimination No (0 pt) Score/Fall Risk Level 0 - 2 = Low Risk Oriented to surroundings, Maintained a safe environment, Hourly rounding (assess needs \T\ fall precautionary measures) done. Abuse screen: Denies threats or abuse. Denies injuries from another. Nutritional screening: No deficits noted. Tuberculosis screening: No symptoms or risk factors identified. Assessment: 00:49 Reassessment: see triage assessment. al5 01:58 Reassessment: Patient appears in no apparent distress at this time. No changes from al5 previously documented assessment. Patient and/or family updated on plan of care and expected duration. Pain level reassessed. Patient is alert, oriented x 3, equal unlabored respirations, skin warm/dry/pink. 02:57 Reassessment: Patient appears in no apparent distress at this time. Patient and/or al5 family updated on plan of care and expected duration. Pain level reassessed. Patient is alert, oriented x 3, equal unlabored respirations, skin warm/dry/pink. Patient states feeling better. Vital Signs: 00:44 BP 105 / 84; Pulse 89; Resp 20; Temp 98(O); Pulse Ox 98% on 2 lpm NC; Weight 104.33 kg; al5 Height 5 ft. 2 in. ; 01:00 BP 102 / 59; Pulse 92; Resp 21; Pulse Ox 98% on 2 lpm NC; al5 01:30 BP 142 / 96; Pulse 93; Resp 23; Pulse Ox 98% on 2 lpm NC; al5 02:00 BP 124 / 61; Pulse 84; Resp 22; Pulse Ox 99% on 2 lpm NC; al5 02:30 BP 117 / 64; Pulse 87; Resp 18; Pulse Ox 96% on R/A; al5 00:44 Body Mass Index 42.07 (104.33 kg, 157.48 cm) al5 ED Course: 00:43 Patient arrived in ED. vc1 00:44 Becky Marshall, JAMES is Primary Nurse. al5 00:44 Johny Chahal MD is Attending Physician. al5 00:47 Triage completed. al5 00:49 Arm band placed on right wrist. Patient placed in the treatment room, in view of staff al5 members, on oxygen, on director private, on pulse oximetry. 00:50 Patient has correct armband on for positive identification. Bed in low position. Call al5 light in reach. Side rails up X 1. Provided Education on: plan of care. 00:50 No provider procedures requiring assistance completed. al5 01:15 Inserted saline lock: 22 gauge in left antecubital area, using aseptic technique. Blood ha1 collected. Flushed with 10 mL NS. 01:23 XRAY Chest (1 view) In Process Unspecified. EDMS 01:26 Basic Metabolic Panel Sent. ha1 01:26 CBC with Diff Sent. ha1 01:26 LFT's Sent. ha1 01:26 Magnesium Sent. ha1 01:26 NT PRO-BNP Sent. ha1 01:26 Troponin HS Sent. ha1 01:26 Lipase Sent. ha1 02:56 IV discontinued. al5 Administered Medications: No medications were administered Medication: 00:49 VIS not applicable for this client. al5 Outcome: 02:33 Discharge ordered by . sp3 02:57 Discharged to home ambulatory, al5 02:57 Condition: good 02:57 Discharge instructions given to patient, Instructed on discharge instructions, follow up and referral plans. Demonstrated understanding of instructions, follow-up care, 02:57 Patient left the ED. al5 Signatures: Dispatcher [employer] EDMS Johny Chahal MD MD sp3 Heide Jeffrey RN RN vc1 Nelly Morales RN RN ha1 Becky Marshall RN RN al5
--- NOTE | 2024-09-06 02:34 | EDPHYS ---
Physician Documentation [facility] Name: Charity Hanks Age: 44 yrs Sex: Female : 1980 Arrival Date: 09/06/2024 Time: 00:40 Bed 5 Private MD: ED Physician Johny Chahal HPI: 09/06 01:19 This 44 yrs old Female presents to ER via EMS with complaints of Chest Pain, Abdominal sp3 Pain. 01:19 44-year-old female with a history of CAD, prior [place], pancreatitis, PTSD now presents to [facility] the ED via EMS for recurrent chest pain, cough epigastric pain. Patient has had multiple visits here for similar symptoms. She denies any significant deviation from her pattern. She denies any fever or back pain, lower abdominal pain, vomiting, diarrhea, production on cough, or any other signs or symptoms on ROS at this time. She states symptoms have been going on for at least 24 hours.. 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 - Infectious Disease History:: Denies. - Social history:: Smoking status: Patient reports the use of cigarette tobacco products, smokes one-half pack cigarettes per day. ROS: 01:20 Constitutional: Negative for fever, chills, and weight loss, Eyes: Negative for injury, sp3 pain, redness, and discharge, ENT: Negative for injury, pain, and discharge, Neck: Negative for injury, pain, and swelling, Respiratory: Negative for shortness of breath, cough, wheezing, and pleuritic chest pain, Back: Negative for injury and pain, : Negative for injury, bleeding, discharge, and swelling, MS/Extremity: Negative for injury and deformity, Skin: Negative for injury, rash, and discoloration, Neuro: Negative for headache, weakness, numbness, tingling, and seizure, Psych: Negative for depression, anxiety, suicide ideation, homicidal ideation, and hallucinations, Allergy/Immunology: Negative for hives, rash, and allergies, Endocrine: Negative for neck swelling, polydipsia, polyuria, polyphagia, and marked weight changes, Hematologic/Lymphatic: Negative for swollen nodes, abnormal bleeding, and unusual bruising, 01:20 All other systems are negative, Exam: 01:20 Constitutional: This is a well developed, well nourished patient who is awake, alert, sp3 and in no acute distress. Head/Face: Normocephalic, atraumatic. Eyes: Pupils equal round and reactive to light, extra-ocular motions intact. Lids and lashes normal. Conjunctiva and sclera are non-icteric and not injected. Cornea within normal limits. Periorbital areas with no swelling, redness, or edema. Neck: Trachea midline, no thyromegaly or masses palpated, and no cervical lymphadenopathy. Supple, full range of motion without nuchal rigidity, or vertebral point tenderness. No Meningismus. Chest/axilla: Normal chest wall appearance and motion. Nontender with no deformity. No lesions are appreciated. Cardiovascular: Regular rate and rhythm with a normal S1 and S2. No gallops, murmurs, or rubs. Normal PMI, no JVD. No pulse deficits. Respiratory: Lungs have equal breath sounds bilaterally, clear to auscultation and percussion. No rales, rhonchi or wheezes noted. No increased work of breathing, no retractions or nasal flaring. Back: No spinal tenderness. No costovertebral tenderness. Full range of motion. Skin: Warm, dry with normal turgor. Normal color with no rashes, no lesions, and no evidence of cellulitis. MS/ Extremity: Pulses equal, no cyanosis. Neurovascular intact. Full, normal range of motion. Neuro: Awake and alert, GCS 15, oriented to person, place, time, and situation. Cranial nerves II-XII grossly intact. Motor strength 5/5 in all extremities. Sensory grossly intact. Cerebellar exam normal. Normal gait. Psych: Awake, alert, with orientation to person, place and time. Behavior, mood, and affect are within normal limits. 01:20 Abdomen/GI: Exam limited secondary to body habitus. Mild epigastric pain noted. No peritoneal signs, rebound or guarding., 01:21 ECG was reviewed by the Attending Physician. EKG demonstrates normal sinus rhythm at 90 sp3 bpm with normal intervals, normal QRS, normal axis, nonspecific diffuse ST/T changes without evidence of acute ischemia. Vital Signs: 00:44 BP 105 / 84; Pulse 89; Resp 20; Temp 98(O); Pulse Ox 98% on 2 lpm NC; Weight 104.33 kg; al5 Height 5 ft. 2 in. ; 01:00 BP 102 / 59; Pulse 92; Resp 21; Pulse Ox 98% on 2 lpm NC; al5 01:30 BP 142 / 96; Pulse 93; Resp 23; Pulse Ox 98% on 2 lpm NC; al5 02:00 BP 124 / 61; Pulse 84; Resp 22; Pulse Ox 99% on 2 lpm NC; al5 02:30 BP 117 / 64; Pulse 87; Resp 18; Pulse Ox 96% on R/A; al5 00:44 Body Mass Index 42.07 (104.33 kg, 157.48 cm) al5 MDM: 00:45 Medical Screening Exam initiated sp3 01:20 Data reviewed: vital signs, nurses notes, old medical records, lab test result(s), EKG, sp3 radiologic studies. ED course: 44-year-old female with chest pain and epigastric pain consistent with prior visits. Differential diagnosis includes acute coronary syndrome, musculoskeletal pain, pancreatitis, other biliary pathology, chronic pain. I am not highly suspicious of PE, TAD, other aortic or vascular pathology, mesenteric ischemia or any other critical process. Workup will include general labs including troponin and lipase, EKG and chest x-ray. Disposition probable discharge if workup negative.. 02:33 ED course: Full workup negative. Will safely discharge patient home at this time.. 3 09/06 00:47 Order name: Basic Metabolic Panel; Complete Time: 02:32 sp3 09/06 00:47 Order name: CBC with Diff; Complete Time: 02:28 3 09/06 00:47 Order name: LFT's; Complete Time: 02:32 sp3 09/06 00:47 Order name: Magnesium; Complete Time: 02:32 sp3 09/06 00:47 Order name: NT PRO-BNP; Complete Time: 02:32 sp3 09/06 00:47 Order name: Troponin HS; Complete Time: 02:32 sp3 09/06 00:47 Order name: Lipase; Complete Time: 02:32 sp3 09/06 00:47 Order name: XRAY Chest (1 view) sp3 09/06 00:47 Order name: Cardiac monitoring; Complete Time: 00:52 sp3 09/06 00:47 Order name: EKG - Nurse/Tech; Complete Time: 00:54 sp3 09/06 00:47 Order name: IV Saline Lock; Complete Time: 00:52 sp3 09/06 00:47 Order name: Labs collected and sent; Complete Time: 00:52 sp3 09/06 00:47 Order name: O2 Per Protocol; Complete Time: 00:52 sp3 09/06 00:47 Order name: O2 Sat Monitoring; Complete Time: 00:52 sp3 Administered Medications: No medications were administered Disposition Summary: 09/06/24 02:33 Discharge Ordered Notes: Location: Home sp3 Condition: Stable sp3 Diagnosis - Chest pain sp3 Followup: sp3 - With: Private Physician - When: Upon discharge from the Emergency Department - Reason: Continuance of care Discharge Instructions: - Discharge Summary Sheet sp3 - Nonspecific Chest Pain, Adult sp3 Forms: - Medication Reconciliation Form sp3 - Antibiotic Education sp3 - Prescription Opioid Use sp3 - Patient Portal Instructions sp3 - Leadership Thank You Letter sp3 Signatures: Dispatcher [employer] EDNE Johny Chahal MD MD sp3 Becky Marshall RN RN al5 Corrections: (The following items were deleted from the chart) 00:48 00:48 BASIC METABOLIC PANEL+C.LAB.BRZ ordered. [facility] 00:48 00:48 CBC+H.LAB.BRZ ordered. [facility] 00:48 00:48 HEPATIC FUNCTION+C.LAB.BRZ ordered. [facility] 00:48 00:48 MAGNESIUM+C.LAB.BRZ ordered. [facility] 00:48 00:48 PROBNP+C.LAB.BRZ ordered. [facility] 00:48 00:48 Troponin High Sensitivity+C.LAB.BRZ ordered. [facility] 00:48 00:48 LIPASE+C.LAB.BRZ ordered. [facility] 00:48 00:48 Chest Single View+RAD.RAD.BRZ ordered. [facility] 01:20 01:19 44-year-old female with a history of CAD, prior [place], pancreatitis, PTSD now sp3 presents to the ED via EMS for recurrent chest pain, cough epigastric pain. Patient has had multiple visits here for similar symptoms. She denies any significant deviation from her pattern. She denies any fever or back pain, lower abdominal pain, vomiting, diarrhea, production on cough, or any other signs or symptoms on ROS at this time.. sp3
[2024-09-06 03:30] VITALS: TEMP 98
[2024-09-06 03:36] VITALS: BP 117/64; O2SAT 96
--- NOTE | 2024-09-06 03:45 | RAD REPORT ---
EXAM DESCRIPTION: XR CHEST 1 VIEW 09/06/2024 3:16 AM BASE BRANDER CLINICAL HISTORY: 44 years, Female, Chest pain. COMPARISON: XR Chest 08/24/2024. FINDINGS: 1 view of the chest (AP portable projection) was obtained. Prior films were compared. There is slig ht decreased lung volume. Mediastinum: The cardiomediastinal silhouette appears normal in size and shape. Lungs: No areas of consolidations or masses are identified. Heart: The heart is normal in size. Thoracic aorta: The thoracic aorta demonstrate to be normal. Pulmonary vasculature: The pulmonary vasculature is normal in distribution. Pleura: The costophrenic angles demonstrate to be sharp. Osseous structures: The bony structures demonstrate to be within normal limits. Other: External EKG leads within the [id number] limits diagnosis. IMPRESSION: No acute cardiopulmonary disease is seen Electronically signed by: Rafal Johnson MD 09/06/2024 03:35 AM BASE BRANDER Transcribed Date/Time: 09/06/2024 3:45 AM
--- NOTE | 2024-09-07 12:07 | EKG ---
Test Date: 2024-09-06 Test Time: 00:42:09 Tire Fabricator: ANGELO MEASUREMENT RESULTS: Intervals: Rate: 90 ID: [id number] QRSD: 76 QT: 370 QTc: 452 Au Train: P: 44 ID: [id number] QRS: -8 T: 40 INTERPRETIVE STATEMENTS: Normal sinus rhythm Biatrial enlargement Cannot rule out Anterior infarct, age undetermined Abnormal ECG Compared to ECG 08/21/2024 21:54:18 Sinus tachycardia no longer present Myocardial infarct finding still present Electronically Signed On 09-07-24 12:03:24 SUPERVISOR MAJOR APPLIANCE ASSEMBLY by James Patel
== END 2024-09-06 02:57 | disposition home or self-care (01) ==
LOC: ER 00:40
DX: R07.9 Chest pain, unspecified (principal); R10.13 Epigastric pain; I25.2 Old myocardial infarction; F17.210 Nicotine dependence, cigarettes, uncomplicated; Z95.818 Presence of other cardiac implants and grafts
CPT/HCPCS: 36415; 71045; 80048; 80076; 83690; 83735; 83880; 84484; 85025; 93005; 99284

== ENCOUNTER 2024-10-09 21:31 | Emergency (ER) | payer OTHER ==
[2024-10-09] MEDS ORDERED: NA CHLORIDE 0.9% 3,000 ML ONE (22:01)
[2024-10-09] MEDS ORDERED: CEFTRIAXONE 1000 MG/VIAL ONE (22:01)
[2024-10-09 23:03] LABS: Sqamous Epithelial <5 /HPF (None Seen); Urine Bacteria None Seen /HPF (<20); Urine Bilirubin NEGATIVE (Negative); Urine Blood Negative (Negative); Urine Clarity Turbid (Clear); Urine Color Colorless (Yellow); Urine Crystals Unidentified Few /HPF (None Seen); Urine Culture Reflex Order NOT NEEDED; Urine Glucose NEGATIVE (Negative); Urine Ketones NEGATIVE (Negative); Urine Microscopic Reflex YN ORDER UMIC; Urine Mucus Slight /HPF (None Seen); Urine Nitrite NEGATIVE (Negative); Urine Protein NEGATIVE (Negative); Urine RBC <5 /HPF (None Seen); Urine Urobilinogen Normal (Normal); Urine WBC <5 /HPF (<5); Urine Yeast (Budding) Trace /HPF (None Seen); Urine pH 5.5 (5.0-7.0)
[2024-10-09 23:04] LABS: Absolute Basophils 0.1 K/uL (0-0.5); Absolute Eosinophils 0.2 K/uL (0-0.5); Absolute Lymphocytes (CBC) 3.4 K/uL (0.7-4.9); Absolute Monocytes 0.7 K/uL (0.1-1.3); Absolute Neutrophil 7.8 K/uL (1.8-8.0); Basophils % 0.6 % (0-1.3); Eosinophils % 1.5 % (0-4.4); Hematocrit 35.5 % (36.0-45.0); Lymphocytes % 28.2 % (15.3-44.8); MCH 26.1 pg (27.0-35.0); MCHC 33.7 g/dL (32.0-36.0); MCV 77.6 fL (80-100); MPV 7.6 fL (7.6-11.3); Monocytes % 5.6 % (3.3-12.3); Neutrophils % 64.1 % (41.7-73.7); Nucleated Red Blood Cells % 0.1 % (0-0); Platelets 343 thou/uL (152-406); RBC Red Blood Cell Count 4.58 M/uL (3.86-4.86); Red Cell Distribution Width 18.9 % (12.1-15.2)
[2024-10-09 23:13] LABS: PT Prothrombin Time 11.2 SECONDS (10-13.0); PTT, Activated Partial Thromb 26.3 SECONDS (27.2-37.4); Protime INR 0.98
[2024-10-09] MEDS ORDERED: KETOROLAC 30 MG/ML INJ ONE (23:49)
[2024-10-10 00:27] LABS: ALT/SGPT 23 U/L (13-56); AST/SGOT 14 U/L (15-37); Albumin 3.1 g/dL (3.4-5.0); Albumin/Globulin Ratio 0.8 (1.1-1.8); Alkaline Phosphatase 67 U/L (45-117); Anion Gap 11.5 mEq/L (5.0-15.0); BUN Blood Urea Nitrogen 10 mg/dL (7-18); Bicarbonate 22 mEq/L (21-32); Bilirubin Total < 0.2 mg/dL (0.2-1.0); Globulin 3.7 g/dL (2.3-3.5); Glomerular Filtration Rate 109 ml/min (=/>90); Glucose Level 137 mg/dL (74-106); Potassium 3.5 mEq/L (3.5-5.1); Protein, Total 6.8 g/dL (6.4-8.2); Sodium Level 137 mEq/L (136-145)
[2024-10-10] MEDS ORDERED: HYDROCODONE/APAP 5/325 MG TAB ONE (01:23)
--- NOTE | 2024-10-10 01:24 | ER ---
Nurse's Notes [facility] Name: Charity Hanks Age: 44 yrs Sex: Female : 1980 Arrival Date: 10/09/2024 Time: 21:31 Bed 18 Private MD: Diagnosis: Dysuria;Flank pain;Elevated blood-pressure reading, without diagnosis of hypertension Presentation: 10/09 21:48 Chief complaint: Patient states: she has been having pain with urination, bilateral ap3 flank pain and urinary frequency for approx 3 days. patient currently rates her pain as a 9/10 on the pain scale. Coronavirus screen: At this time, the client does not indicate any symptoms associated with coronavirus-19. Ebola Screen: No symptoms or risks identified at this time. Initial Sepsis Screen: Does the patient meet any 2 criteria? HR > 90 bpm. Yes Does the patient have a suspected source of infection? No. Patient's initial sepsis screen is negative. Risk Assessment: Do you want to hurt yourself or someone else? Patient reports no desire to harm self or others. Onset of symptoms was October 06, 2024. 21:48 Method Of Arrival: Ambulatory ap3 21:48 Acuity: CARLOS 2 ap3 Triage Assessment: 21:50 General: Appears uncomfortable, Behavior is calm, cooperative, appropriate for age. ap3 Pain: Complains of pain in left and right flank Pain currently is 9 out of 10 on a pain scale. Neuro: Level of Consciousness is awake, alert, obeys commands, Oriented to person, place, time, situation, Appropriate for age. Cardiovascular: Patient's skin is warm and dry. Respiratory: Airway is patent Respiratory effort is even, unlabored, Respiratory pattern is regular, symmetrical. Historical: - Allergies: 21:50 No Known Allergies; ap3 - PMHx: 21:50 Anxiety; depressive disorder; Myocardial infarction; Pancreatitis; PTSD; ap3 - PSHx: 21:50 cardiac stent; ap3 - Immunization history:: Client reports receiving the 2nd dose of the Covid vaccine. - Infectious Disease History:: Denies. - Social history:: Smoking status: Patient reports the use of cigarette tobacco products, denies chronic smoking, but will smoke occasionally. Screenin:51 Abuse screen: Denies threats or abuse. Nutritional screening: No deficits noted. ap3 Tuberculosis screening: No symptoms or risk factors identified. 22:15 [facility] ED Fall Risk Assessment (Adult) History of falling in the last 3 months, kj2 including since admission No falls in past 3 months (0 pts) Confusion or Disorientation No (0 pts) Intoxicated or Sedated No (0 pts) Impaired Gait No (0 pts) Mobility Assist Device Used Altered Elimination No (0 pt) Score/Fall Risk Level 0 - 2 = Low Risk Maintained a safe environment, Hourly rounding (assess needs \T\ fall precautionary measures) done. Assessment: 22:15 General: Appears in no apparent distress. Behavior is cooperative. Pain: Complains of kj2 pain in flank Pain currently is 7 out of 10 on a pain scale. Neuro: Level of Consciousness is awake, alert, obeys commands, Oriented to person, place, time, situation. Cardiovascular: Patient's skin is warm and dry. Respiratory: Airway is patent Respiratory effort is even, unlabored. GI: No signs and/or symptoms were reported involving the gastrointestinal system. : Reports burning with urination. 23:15 Reassessment: Patient appears in no apparent distress at this time. Patient and/or kj2 family updated on plan of care and expected duration. Pain level reassessed. Patient is alert, oriented x 3, equal unlabored respirations, skin warm/dry/pink. 04 00:02 Reassessment: Patient appears in no apparent distress at this time. Patient and/or kj2 family updated on plan of care and expected duration. Pain level reassessed. Patient is alert, oriented x 3, equal unlabored respirations, skin warm/dry/pink. 01:00 Reassessment: No changes from previously documented assessment. Patient and/or family rg5 updated on plan of care and expected duration. Pain level reassessed. Patient is alert, oriented x 3, equal unlabored respirations, skin warm/dry/pink. General: Appears in no apparent distress. Behavior is calm, cooperative. Pain: Complains of pain in left lower back and right lower back Pain currently is 8 out of 10 on a pain scale. Quality of pain is described as aching. 01:00 Neuro: Level of Consciousness is awake, alert, Oriented to person, place, time, rg5 situation. Cardiovascular: Patient's skin is warm and dry. Respiratory: Airway is patent Respiratory effort is even, unlabored, Respiratory pattern is regular, Breath sounds are clear. GI: No signs and/or symptoms were reported involving the gastrointestinal system. : Reports burning with urination. EENT: No deficits noted. Derm: Skin is intact, Skin is dry, Skin is normal, Skin temperature is warm. Musculoskeletal: Circulation, motion, and sensation intact. Range of motion:. Vital Signs: 10/09 21:48 BP 125 / 94; Pulse 113; Resp 18; Temp 98.5(O); Pulse Ox 100% ; Weight 104.33 kg; Pain ap3 9/10; 23:25 BP 161 / 87; Pulse 91; Pulse Ox 100% on R/A; kj2 10/10 01:27 BP 139 / 83; Pulse 90; Resp 18; Pulse Ox 100% on R/A; oe 10/09 21:48 Pain Scale: Adult ap3 ED Course: 10/09 21:40 Patient arrived in ED. gm2 21:41 Francis Elias DO is Attending Physician. ms3 21:50 Triage completed. ap3 21:51 Arm band placed on right wrist. ap3 21:56 Josi Jung, RN is Primary Nurse. kj2 22:05 EKG done, by ED staff, reviewed by Francis Elias DO. oe 22:15 Patient has correct armband on for positive identification. Bed in low position. Call kj2 light in reach. Provided Education on: call light. 22:15 First set of blood cultures drawn by me. oe 22:31 Second set of blood cultures drawn by me. oe 22:38 Inserted saline lock: 22 gauge in right forearm, using aseptic technique. Blood oe collected. Flushed with 10 mL NS. 22:39 Blood Culture Adult (2) Sent. oe 22:39 CBC with Diff Sent. oe 22:39 CMP Sent. oe 22:39 Lactate w/ 2H reflex if indic. Sent. oe 22:39 Protime (+inr) Sent. oe 22:39 Ptt, Activated Sent. oe 10/10 00:15 CT Abd/Pelvis - Without Contrast In Process Unspecified. EDMS 01:31 No provider procedures requiring assistance completed. rg5 01:31 IV discontinued, bleeding controlled, No redness/swelling at site. Pressure dressing rg5 applied. Administered Medications: 10/09 22:57 Drug: Rocephin IV 1 grams IV at calculated rate once; Given slow IV push per pharmacy kj2 instructions Route: IV; Rate: calculated rate; Site: right forearm; 10/10 00:00 Follow up: IV Status: Completed infusion; IV Intake: 100ml rg5 10/09 22:58 Drug: NS 0.9% IV (30 ml/kg) 30 ml/kg IV at bolus once; Sepsis Protocol; to be given as kj2 a bolus over 90 minutes Route: IV; Rate: bolus; Site: right forearm; 10/10 01:27 Follow up: IV Status: Completed infusion; IV Intake: 1000ml rg5 10/09 23:51 Drug: Ketorolac IVP 10 mg 10 mg IVP once Route: IVP; Site: right hand; kj2 10/10 00:12 Follow up: Response: No adverse reaction; Pain is decreased rg5 01:25 Drug: HYDROcodone-acetaminophen PO 5 mg-325 mg 1 tabs PO once Route: PO; rg5 01:28 Follow up: Response: No adverse reaction; Pain is decreased rg5 Medication: 10/09 23:16 VIS not applicable for this client. kj2 Intake: 10/10 00:00 IV: 100ml; Total: 100ml. rg5 01:27 IV: 1000ml; Total: 1100ml. rg5 Outcome: 01:23 Discharge ordered by MD. ms3 01:32 Discharged to home ambulatory, rg5 01:32 Condition: stable 01:32 Discharge instructions given to patient, Instructed on discharge instructions, follow up and referral plans. Demonstrated understanding of instructions, follow-up care, medications, Prescriptions given X 2, 01:32 Patient left the ED. rg5 Signatures: Dispatcher [employer] EDMS Charly Yousif Amanda RN RN ap3 Francis Elias DO DO ms3 Lola To gm2 Daron Weston RN RN rg5 Josi Jung RN RN kj2
--- NOTE | 2024-10-10 01:24 | EDPHYS ---
Physician Documentation [facility] Name: Charity Hanks Age: 44 yrs Sex: Female : 1980 Arrival Date: 10/09/2024 Time: 21:31 Bed 18 Private MD: ED Physician Francis Elias HPI: 10/10 00:29 This 44 yrs old Female presents to ER via Ambulatory with complaints of Pain With ms3 Urination, Low Back Pain. 00:29 44-year-old female past medical history of anxiety, depression, myocardial infarction, ms3 pancreatitis, PTSD presents to the emergency department for bilateral flank pain, dysuria, urinary frequency that has been ongoing for 3 days. Patient states she took Keflex 500 mg twice a day as she had this leftover from her previous UTI. Patient notes she has not had improvement after taking the antibiotics. Patient states she took her last pill yesterday. Patient states her discomfort is a 9/10. Historical: - Allergies: 10/09 21:50 No Known Allergies; ap3 - PMHx: 21:50 Anxiety; depressive disorder; Myocardial infarction; Pancreatitis; PTSD; ap3 - PSHx: 21:50 cardiac stent; ap3 - Immunization history:: Client reports receiving the 2nd dose of the Covid vaccine. - Infectious Disease History:: Denies. - Social history:: Smoking status: Patient reports the use of cigarette tobacco products, denies chronic smoking, but will smoke occasionally. ROS: 10/10 00:29 Constitutional: Negative for fever, and chills. Cardiovascular: Negative for chest ms3 pain, and palpitations. Respiratory: Negative for shortness of breath, cough, wheezing, and pleuritic chest pain, Abdomen/GI: Negative for abdominal pain, nausea, vomiting, diarrhea, and constipation, Skin: Negative for injury, rash, and discoloration, Back: Positive for flank pain, bilaterally, : Positive for urinary symptoms, urinary frequency, burning with urination, Exam: 10/09 23:25 ECG was reviewed by the Attending Physician. ms3 10/10 00:29 Constitutional: This is a well developed, well nourished patient who is awake, alert, ms3 and in no acute distress. Cardiovascular: Regular rate and rhythm with a normal S1 and S2. No gallops, murmurs, or rubs. Normal PMI, no JVD. No pulse deficits. Respiratory: Lungs have equal breath sounds bilaterally, clear to auscultation and percussion. No rales, rhonchi or wheezes noted. No increased work of breathing, no retractions or nasal flaring. Abdomen/GI: Soft, non-tender, with normal bowel sounds. No distension or tympany. No guarding or rebound. No evidence of tenderness throughout. Skin: Warm, dry with normal turgor. Normal color with no rashes, no lesions, and no evidence of cellulitis. Back: ROM is normal, normal spinal alignment noted, CVA tenderness, that is mild, is noted bilaterally, vertebral tenderness, is not appreciated, Vital Signs: 10/09 21:48 BP 125 / 94; Pulse 113; Resp 18; Temp 98.5(O); Pulse Ox 100% ; Weight 104.33 kg; Pain ap3 9/10; 23:25 BP 161 / 87; Pulse 91; Pulse Ox 100% on R/A; kj2 10/10 01:27 BP 139 / 83; Pulse 90; Resp 18; Pulse Ox 100% on R/A; oe 10/09 21:48 Pain Scale: Adult ap3 MDM: 10/09 22:16 Medical Screening Exam initiated ms3 10/10 00:29 Differential diagnosis: strain, sciatica, UTI, Nephrolithiasis. ms3 01:25 Data reviewed: vital signs, nurses notes, lab test result(s), radiologic studies, and ms3 as a result, I will discharge patient. I considered the following discharge prescriptions or medication management in the emergency department Medications were administered in the Emergency Department. See MAR. Counseling: I had a detailed discussion with the patient and/or guardian regarding the historical points, exam findings, and any diagnostic results supporting the discharge/admit diagnosis, lab results, radiology results, the need for outpatient follow up, to return to the emergency department if symptoms worsen or persist or if there are any questions or concerns that arise at home. Special discussion: I discussed with the patient/guardian in detail that at this point there is no indication for admission to the hospital. It is understood, however, that if the symptoms persist or worsen the patient needs to return immediately for re-evaluation. 01:26 Special discussion: I have referred the patient to see his PCP for further evaluation ms3 of high blood pressure. ED course: Discussed with patient urinalysis negative for urinary tract infection. CBC with elevated white blood count without any signs of infection at this time. Patient's hemoglobin normal, platelets normal. CMP without significant abnormalities. Patient's lactic acid 1.4. CT abdomen pelvis without IV contrast revealed Allowing for lack of intravenous contrast, no acute abnormality of the abdomen or pelvis. 2. Lipid-rich left adrenal adenoma measuring up to 2.8 cm. No dedicated imaging follow-up recommended. Patient to follow-up with her primary care physician in 2 to 3 days. Patient understands and agrees with plan. All questions were answered. Return precautions discussed include worsening symptoms, or any other concerns.. 10/09 21:42 Order name: Urinalysis w/ reflexes; Complete Time: 23:39 ms3 10/09 21:49 Order name: Blood Culture Adult (2) ms3 10/09 21:49 Order name: CBC with Diff; Complete Time: 23:39 ms3 10/09 21:49 Order name: CMP; Complete Time: 00:29 ms3 10/09 21:49 Order name: Lactate w/ 2H reflex if indic.; Complete Time: 23:39 ms3 10/09 21:49 Order name: Protime (+inr); Complete Time: 23:39 ms3 10/09 21:49 Order name: Ptt, Activated; Complete Time: 23:39 ms3 10/09 22:47 Order name: Glucose, Ancillary Testing; Complete Time: 23:39 EDMS 10/09 23:40 Order name: CT Abd/Pelvis - Without Contrast ms3 10/09 21:49 Order name: Accucheck; Complete Time: 22:38 ms3 10/09 21:49 Order name: Cardiac monitoring; Complete Time: 00:12 ms3 10/09 21:49 Order name: EKG - Nurse/Tech; Complete Time: 22:38 ms3 10/09 21:49 Order name: IV Saline Lock - Large Bore; Complete Time: 22:38 ms3 10/09 21:49 Order name: Labs collected and sent; Complete Time: 22:38 ms3 10/09 21:49 Order name: O2 Per Protocol; Complete Time: 00:12 ms3 10/09 21:49 Order name: O2 Sat Monitoring; Complete Time: 00:12 ms3 10/09 21:49 Order name: Vital Signs; Complete Time: 23:47 ms3 EC/04 23:25 Rate is 101 beats/min. Rhythm is regular. QRS [place] is Normal. [place] interval is normal. QT ms3 interval is normal. Clinical impression: Sinus tachycardia. Interpreted by me. Reviewed by me. Administered Medications: 22:57 Drug: Rocephin IV 1 grams IV at calculated rate once; Given slow IV push per pharmacy kj2 instructions Route: IV; Rate: calculated rate; Site: right forearm; 10/10 00:00 Follow up: IV Status: Completed infusion; IV Intake: 100ml rg5 10/09 22:58 Drug: NS 0.9% IV (30 ml/kg) 30 ml/kg IV at bolus once; Sepsis Protocol; to be given as kj2 a bolus over 90 minutes Route: IV; Rate: bolus; Site: right forearm; 10/10 01:27 Follow up: IV Status: Completed infusion; IV Intake: 1000ml rg5 10/09 23:51 Drug: Ketorolac IVP 10 mg 10 mg IVP once Route: IVP; Site: right hand; kj2 10/10 00:12 Follow up: Response: No adverse reaction; Pain is decreased rg5 01:25 Drug: HYDROcodone-acetaminophen PO 5 mg-325 mg 1 tabs PO once Route: PO; rg5 01:28 Follow up: Response: No adverse reaction; Pain is decreased rg5 Disposition Summary: 10/10/24 01:23 Discharge Ordered Notes: Location: Home ms3 Condition: Stable ms3 Diagnosis - Dysuria ms3 - Flank pain ms3 - Elevated blood-pressure reading, without diagnosis of hypertension ms3 Followup: ms3 - With: Private Physician - When: 2 - 3 days - Reason: Recheck today's complaints Discharge Instructions: - Discharge Summary Sheet ms3 - Dysuria ms3 - Flank Pain, Adult, [id number] ms3 Forms: - Medication Reconciliation Form ms3 - Antibiotic Education ms3 - Prescription Opioid Use ms3 - Patient Portal Instructions ms3 - Leadership Thank You Letter ms3 Prescriptions: - Pyridium 200 mg Oral Tablet - take 1 tablet ORAL route every 8 hours for 3 days; 9 tablet; Refills: 0, ms3 Product Selection Permitted - Cyclobenzaprine 5 mg Oral Tablet - take 1 tablet ORAL route 3 times per day As needed; 15 tablet; Refills: 0, ms3 Product Selection Permitted Signatures: Dispatcher [employer] EDMS Becky Gutierrez, RN RN ap3 JadaFrancis, DO DO ms3 Daron Weston, RN RN rg5 Josi Jung, RN RN kj2 Corrections: (The following items were deleted from the chart) 10/09 21:42 21:42 Urinalysis+U.LAB.BRZ ordered. EDMS EDMS 21:50 21:50 BLOOD CULTURE*+BA.LAB.BRZ ordered. EDMS EDMS 21:50 21:50 CBC+H.LAB.BRZ ordered. EDMS EDMS 21:50 21:50 COMPREHENSIVE METABOLIC PANEL+C.LAB.BRZ ordered. EDMS EDMS 21:50 21:50 LACTATE+C.LAB.BRZ ordered. EDMS EDMS 21:50 21:50 PROTIME (+INR)+COAG.LAB.BRZ ordered. EDMS EDMS 21:50 21:50 PTT, ACTIVATED+COAG.LAB.BRZ ordered. EDMS EDMS
[2024-10-10 01:45] VITALS: TEMP 98.5; O2SAT 100
[2024-10-10 01:56] VITALS: BP 139/83
--- NOTE | 2024-10-10 06:46 | RAD REPORT ---
PROCEDURE: CT Abdomen and Pelvis Without Intravenous Contrast CLINICAL INDICATION: The patient is 44 years old and is Female; Flank pain. TECHNIQUE: Axial computed tomography images of the abdomen and pelvis without intravenous contrast. Sagittal a nd coronal reformatted images were created and reviewed. This CT exam was performed using one or more of the following dose reduction techniques: automated exposure control, adjustment of the mA a nd/or kV according to patient size, and/or use of iterative reconstruction technique. COMPARISON: CT Abdomen pelvis 09/07/[address] Abdomen pelvis 05/05/2023. FINDINGS: LUNG BASES: Unremarkable No mass. No consolidation. ABDOMEN: LIVER: Unremarkable GALLBLADDER AND BILE DUCTS: Cholecystectomy clips noted in the gallbladder fossa. No greater than e xpected ductal dilatation. PANCREAS: Unremarkable No ductal dilation. SPLEEN: Unremarkable No splenomegaly. ADRENALS: Lipid rich left adrenal adenoma measuring up to 2.8 cm., Unchanged in size from recent re ference exam Right adrenal gland is unremarkable. KIDNEYS AND URETERS: Unremarkable No obstructing stones. No hydronephrosis. STOMACH AND BOWEL: Unremarkable No obstruction. No mucosal thickening. PELVIS: APPENDIX: No findings to suggest acute appendicitis. BLADDER: Unremarkable No stones. REPRODUCTIVE: Unremarkable as visualized. ABDOMEN and PELVIS: INTRAPERITONEAL SPACE: Unremarkable No free air. No significant fluid collection. BONES/JOINTS: Fused anterior osteophytes demonstrated at the T11-L1 vertebral levels. No acute osse ous abnormality. No dislocation. SOFT TISSUES: Tiny fat-containing umbilical hernia. VASCULATURE: Unremarkable No abdominal aortic aneurysm. LYMPH NODES: Unremarkable No enlarged lymph nodes. IMPRESSION: 1. Allowing for lack of intravenous contrast, no acute abnormality of the abdomen or pelvis. 2. Lipid-rich left adrenal adenoma measuring up to 2.8 cm. No dedicated imaging follow-up recommend ed. Electronically signed by: Shay Nichols MD 10/10/2024 01:08 AM CDT Due to temporary technical issues with the PACS/[employer] reporting system, reports are being melita d by the in-house radiologist without review as a courtesy to ensure prompt reporting the interpreting radiologist is fully responsible for the content of the report. Transcribed Date/Time: 10/10/2024 6:46 AM
--- NOTE | 2024-10-12 11:34 | EKG ---
Test Date: 2024-10-09 Test Time: 22:02:44 Paint Specialist: NARENDRA MEASUREMENT RESULTS: Intervals: Rate: 101 [place]: 144 QRSD: 78 QT: 348 QTc: 451 [place]: P: 40 [place]: 144 QRS: -20 T: 43 INTERPRETIVE STATEMENTS: Sinus tachycardia Biatrial enlargement Anterior infarct, age undetermined Abnormal ECG Compared to ECG 09/06/2024 00:42:09 Sinus rhythm no longer present Myocardial infarct finding still present Electronically Signed On 10-12-24 11:29:44 CDT by James Patel
== END 2024-10-10 01:32 | disposition home or self-care (01) ==
LOC: ER 21:31
DX: R30.0 Dysuria (principal); R10.9 Unspecified abdominal pain; R03.0 Elevated blood-pressure reading, without diagnosis of hypertension; F17.210 Nicotine dependence, cigarettes, uncomplicated; Z95.818 Presence of other cardiac implants and grafts
CPT/HCPCS: 96365; 93005; 87040 ×2; 85025; 81001; 36415; 85610; 82947; 83605; 85730; 80053; 74176; 96375; 99284; J7030; J0696

== ENCOUNTER 2024-10-16 21:25 | Emergency (ER) | payer OTHER ==
--- OUTSIDE RECORDS SUMMARY | 2024-10-16 21:44 | XMS REPORT | Continuity of Care Document ---
Author Name Unknown Address [address] [facility] [place] [address] [facility] Address [address] [facility] [place] [address] Support Name Relationship Address Phone RACHEL CASH Father Unknown Unavailable PHYSICIAN, NO Primary Care Physician Unknown Unav ailable MD MORA POLLOCK A Emergency Provider [address] [place] [address] JAN COX natural parent [id number] [address] MD SHERIDAN MCMANUS Emergency Provider [facility], [place] [address] CHARITY ROCA Guarantor [address] [place] [address] MD RIDDHI [place] [address] MD AN IRIZARRY Emergency Provider [facility], [place] [address] MD CARLOS SOLANO A Primary Care Physician [address] [facility] [address] [place] [address] OTHER, ENTER NAME IN NOTES Primary Care Physician Unknown Unavailable MD Arelis Kern Emergency Provider [address] [place] [address] MD SHAN BUSCH Attending Provider [address] [place] [address] PIYUSH JUAREZ parent [address] [place] [address] MD TAVARES MG JR, JR. Emergency Provider [address] [place] [address] Leyda Villa Mother Unknown Unavailable Rachel Cox Father [address] [place] [address] one else per patient, No Emergency Contact Unknown Unavailable Rachel Cox Father [address] [place] [address] 1 Personal Relationship Unknown Unavai lable Unavailable Personal Relationship Unknown Unavai lable Rachel Cox Father [address] [place] [address] PATIENT, NO ONE ELSE PER Personal Relationship Unknown Unavailable Care Team Providers Care Termite Control Representative Name Role Phone OTHER, ENTER NAME IN NOTES Primary Care Physicia n Unavailable CATHY STRICKLAND Attending Clinician Unavailable JOANNE MONTES Attending Clinician Unavailable TYLER MAN Attending Clinician Unavailable FLORINDA REYES Attending Clinician Unavailable OLIVIA GARCIA Attending Clinician Unavailable OLIVIA GARCIA Attending Clinician Unavailable Olivia Garcia MD Attending Clinician [phone] GISELLE OSORIO Attending Clinician Unavailable MD BEHZAD Attending Clinician Unavailab CONRADO Pendleton Attending Clinician Unavailable JÚNIOR FARRELL Attending Clinician Unavailable Saleem EDWARD Attending Clinician Unavailable Saleem EDWARD Attending Clinician Unavailable Saleem Perez Attending Clinician [phone] RADIOLOGY, DEPT Attending Clinician Unavailable SANDY GARCIA Attending Clinician Unavailable SANDY GARCIA Attending Clinician Unavailable Sandy Walker Attending Clinician [phone] ANNALISE WRIGHT Attending Clinician Unavailable Annalise Wright PA-C Attending Clinician [phone] LAB90 Attending Clinician Unavailable Alesha Roy MD Attending Clinician + ARELIS KERN Attending Clinician Unavailab FARTUN Bernal Attending Clinician Unavailable TAVARES MG JR Attending Clinician Unavai lable Florentino SHEET MUSIC SALESPERSON, Leigh Attending Clinician [phone] COSMO Attending Clinician Unavailable SHERIDAN MCMANUS Attending [...] + [phone] Jesús Montero MD Attending Clinician +[phone] FELTON Attending Clinician Unavailable MELIDA LONGORIA Attending Clinician Unavailable Melida Longoria MD Attending Clinician +[phone] WIL MCQUEEN Attending Clinician Unavailable Wil Joseph Attending Clinician +[phone] DEE WANG Attending Clinician Unavaila ble Dee Bell Attending Clinician [phone] Doctor Unassigned, [place] Prieta Attending Clinician U shannanailable CEM CHOI Attending Clinician Unavailable Cem Choi MD Attending Clinician [phone] Shelley Rosas RN Attending Clinician [phone] Bal Cuevas Attending Clinician +15 BAL HASSAN Attending Clinician Unavailable Tremaine Jon Attending Clinician [phone] TREMAINE BECERRA Attending Clinician Unavailable LEEANNE WISE Attending Clinician Unavailable MORA POLLOCK Attending Clinician Unavailable Best Rodríguez Attending Clinician [phone] BEST TAYLOR Attending Clinician Unavailable Marbella Rizo RN Attending Clinician UnavailAbdias Remy Attending Clinician ABDIAS ROBERTSON Attending Clinician Unavailable Kamryn Sheppard RN Attending Clinician Unavail able Bushra Rios DO Attending Clinician [phone] BUSHRA RIOS Attending Clinician Unavailab SINCERE morocho [...] Clinician Unavailable Jesús Montero MD Admitting Clinician [phone] FELTON Admitting Clinician Unavailable MELIDA LONGORIA Admitting Clinician Unavailable WIL MCQUEEN Admitting Clinician Unavailable DEE WANG Admitting Clinician Unavaila CEM Gomez Admitting Clinician Unavailable TREMAINE BECERRA Admitting Clinician Unavailable LEEANNE WISE Admitting Clinician Unavailable Saleem EDWARD Admitting Clinician Unavailable BEST TAYLOR Admitting Clinician Unavailable ABDIAS ROBERTSON Admitting Clinician Unavailable Payers Payer Name Policy Type Policy Number Effective Date Expirati on Date Source 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 9 [id number] 2024 00:00:00 RAMSES Caro/ KELLEE BRITTON [id number] 2023 00:00:00 [facility] [id number] 2020 00:00:00 Problems Condition Name Condition Details Condition Category Status Onset Date Resolution Date Last Treatment Date Treating Clinician Comments Source Generalize d abdominal pain Generalize d abdominal pain Disease Active 2023-07 00:00: 00 [facility] Coronary artery disease Coronary artery [...] c peptide (BNP) level Disease Active 2020-07 00:00: 00 [facility] Cigarette smoker Cigarette smoker Disease Active 2020-07 00:00: 00 [facility] Family history of early CAD Family history of early CAD Disease Active 2020-07 00:00: 00 [facility] Primary hypertensi on Primary hypertensi on Disease Active 2020-07 0 00:00: 00 [facility] Elevated brain natriureti c peptide (BNP) level Elevated brain natriureti c peptide (BNP) level Disease Active 2020-07 0- 00:00: 00 [facility] Snores Snores Disease Active 2020-07 0 00:00: 00 [facility] Morbid obesity with body mass index of 40.0-49.9 Morbid obesity with body mass index of 40.0-49.9 Disease Active 2020-07 00:00: 00 [facility] Abdominal pain Problem [facility] Acute coronary syndrome without high troponin [facility] Adrenal mass Problem [facility] Adrenal nodule Problem [facility] Encounter for counseling regarding advance directives [facility] Allergic rhinitis Problem [facility] Angina pectoris Problem [facility] Anxiety and depression Problem [facility] Chest pain Problem [facility] Gastroente ritis Problem [facility] Malaise Problem [facility] Otitis externa of left ear Problem [facility] Cyst of ovary Problem [facility] Post traumatic stress disorder (PTSD) Problem [facility] Tobacco abuse Problem [facility] Urinary tract infection Problem [facility] No known active problems No known active problems Disease [facility] Allergies, Adverse Reactions, Alerts Allergy Name Allergy Type Status Severity Reaction(s) Onset Date Inactive Date Treating Clinician Comments Source NO KNOWN ALLERGIE S Drug Class Active [facility] Social History Social Habit Start Date Stop Date Quantity Comments Source History of tobacco use [facility] Gender identity [facility] Sexual orientation Saleem Buckley - External [...] Cigarette pack-years 2023-10-28 00:00:00 2023-10-28 00:00:00 Kellee Davies Tobacco use and exposure 2023-10-28 00:00:00 2023-10-28 00:00:00 Smokeless tobacco non-user Kellee Leiva External Sex 2023-07-17 22:17:29 2023-07-17 22:17:29 Female (finding) Kellee Leiva External Tobacco Comment 2023-02-15 00:00:00 2023-02-15 00:00:00 In the process of quitting. Now smokes 5 cigarettes/ day from 2 packs per day [facility] Exposure to SARS-CoV-2 (event) 2021-12-30 00:00:00 2022-01-09 16:34:00 Unable to assess [facility] Education 2021-04-07 00:00:00 2021-04-07 00:00:00 13 [facility] Sex assigned at 1980 00:00:00 1980 00:00:00 Kellee Davies Smoking Status Start Date Stop Date Source Smokes tobacco daily 2023-10-28 00:00:00 Kellee Davies Unknown if ever smoked [facility] Medications Ordered Medication Name Filled Medication Name Start Date Stop Date Current Medication? Ordering Clinician Indication Dosage Frequency Signature (SIG) Comments Components Source morphine (2 mg/mL) injection 2 mg 08 07:30: 00 10-13 07:35 :00 No 2mg 2 mg, Slow IV Push, ONCE, 1 dose, On Sat10/13/24 at 0230, Routine [facility] ondansetron (ZOFRAN (PF)) injection 4 mg 08 05:15: 00 10-13 05:20 :00 No 4mg 4 mg, Slow IV Push, ONCE, 1 dose, On Sat10/13/24 at 0015, Administer over 2-5 Minutes, 2 mL [facility] morphine (2 mg/mL) injection 2 mg 08 05:15: 00 10-13 05:18 :00 No 2mg 2 mg, Slow IV Push, ONCE, 1 dose, On Sat10/13/24 at 0015, Routine [facility] aspirin chewable tablet 243 mg 10-13 04:00: 00 10-13 04:13 :00 No 243mg 243 mg, Oral, Once, 1 dose, On Sat10/12/24 at 2300, Routine [facility] nitroglycer in (NITROSTAT) sublingual tablet 0.4 mg 10-13 03:55: 07 Yes .4mg 0.4 mg, Sublingual , Q5MIN PRN, 3 doses, Starting on Sat10/12/24 at 2255, Until Discontinu ed, ROSELYN, Chest pain [facility] Methocarbam ol 750 MG oral Tablet 09-07 00:00: 00 Yes [id number] 750mg Q.25D TAKE 1 TABLET (750 MG TOTAL) BY MOUTH 4 TIMES DAILY. Kellee pinedo Belsomra 20 MG oral Tablet 09-07 00:00: 00 Yes [id number] 1{tbl} QD TAKE 1 TABLET BY MOUTH EVERY DAY AT NIGHT Kellee pinedo Aspirin Low Dose 81 MG oral Tablet Delayed Response 09-01 00:00: 00 Yes [id number] 81mg QD TAKE 1 TABLET BY MOUTH EVERY DAY Kellee pinedo methylPREDN ISolone 4 MG oral Tablet Therapy Pack 08-05 00:00: 00 Yes [id number] 1{bebeto} Take 1 bebeto by mouth See Admin Instructio ns Use as directed. Kellee pinedo Albuterol HFA 108 (90 Base) MCG/ACT IN AERS 08-05 00:00: 00 Yes [id number] 2{puff} Q.25D Inhale 2 puffs into the lungs every 6 hours as needed for wheezing or shortness of breath. Kellee pinedo Guaifenesin (Mucinex) 600 MG oral Tablet 12 Hour Sustained Release 08-05 00:00: 00 Yes [id number] 1200mg Q.5D Take 2 tablets (1,200 mg total) by mouth 2 times daily. Kellee pinedo Belsomra 20 MG oral Tablet 08-04 00:00: 00 Yes [id number] 1{tbl} QD TAKE 1 TABLET BY MOUTH EVERY DAY AT NIGHT Kellee pinedo Aspirin Low Dose 81 MG oral Tablet Delayed Response 08-04 00:00: 00 Yes [id number] 81mg QD TAKE 1 TABLET BY MOUTH [...] dose, On 07/19/24 at 0200, [facility] ipratropium -albuteroL (DUONEB) 0.5 mg-3 mg(2.5 mg base)/3 mL nebulizer solution 3 mL 07-19 08:00: 00 07-19 07:04 :00 No 3mL 3 mL, Inhalation , ONCE, 1 dose, On 07/19/24 at 0200, [facility] azithromyci n (ZITHROMAX) tablet 500 mg 07-19 07:00: 00 07-19 07:05 :00 No 500mg 500 mg, Oral, ONCE, 1 dose, On 07/19/24 at 0100, ROSELYN, Reason for Anti-Infec tive: Documented Infection, Documented Infection Site: Respirator y, Duration of Therapy: Once (ED) [facility] iopamidol (ISOVUE 370-500 mL) injection 75 mL 07-19 06:45: 00 07-19 06:45 :00 No [id number] 75mL 75 mL, Intravenou s, ONCE, 1 dose, On 07/19/24 at 0045, [facility] nitroglycer in (NITROL) 2 % ointment 0.5 Inch 07-19 06:00: 00 07-19 05:11 :00 No .5[in_u s] 0.5 Inch, Transderma l (Apply To Skin), ONCE, 1 dose, On 07/19/24 at 0000, [facility] ketorolac (TORADOL) injection 15 mg 07-19 06:00: 00 07-19 05:09 :00 No 15mg 15 mg, Slow IV Push, ONCE, 1 dose, On 07/19/24 at 0000, [facility] predniSONE 20 mg tablet 07-19 00:00: 00 Yes [id number] 1 PO BID x 4 days [facility] Azithromyci n 250 MG oral Tablet 07-19 00:00: 00 Yes 250mg Take 1 tablet (250 mg total) by mouth See Admin Instructio ns. Kellee pinedo Sertraline HCl 50 MG oral Tablet 07-10 00:00: 00 Yes [id number] TAKE 1 TABLET BY MOUTH DAILY TAKE IN ADDITION TO 100 MG TABLET FOR A TOTAL DOSE OF 150 MG DAILY. Kellee pinedo Sertraline HCl 100 MG oral Tablet 07-10 00:00: 00 Yes [id number] TAKE 1 TABLET BY MOUTH EVERY MORNING TAKE IN ADDITION TO 50 MG TABLET FOR A TOTAL DOSE OF 150 MG DAILY. Kellee pinedo iopamidol (ISOVUE 370-500 mL) injection 100 mL 2023-07 06:45: 00 07-04 06:45 :00 No [id number] 100mL 100 mL, Intravenou s, ONCE, 1 dose, On 07/04/24 at 0045, Routine [facility] morpHINE (4 mg/mL) injection 4 mg 2023-07 06:30: 00 07-04 06:29 :00 No 4mg 4 mg, Slow IV Push, ONCE, 1 dose, On 07/04/24 at 0030, [facility] proMETHazin e (PHENERGAN) 12.5 mg in NS 50 mL IV piggyback (CNR) 2023-07 05:15: 00 07-04 05:30 :00 No 12.5mg 12.5 mg, IV Piggyback, at 200 mL/hr Administer over 15 Minutes, ONCE, 1 dose, On Sat07/03/24 at 2315, ROSELYN [facility] morpHINE (4 mg/mL) injection 4 mg 2023-07 03:30: 00 07-04 03:49 :00 No 4mg 4 mg, Slow IV Push, ONCE, 1 dose, On Sat07/03/24 at 2130, STAT [facility] ondansetron (ZOFRAN (PF)) injection 4 mg 2023-07 03:30: 00 07-04 03:50 :00 No 4mg 4 mg, Slow IV Push, ONCE, 1 dose, On Sat07/03/24 at 2130, Administer over 2-5 Minutes, 2 mL [facility] NaCl 0.9% (NS) IV infusion 1,000 mL 2023-07 03:18: 00 07-04 04:56 :00 No 1000mL at 999 mL/hr, Intravenou s, ONCE, 1 dose, On Sat07/03/24 at 2130, ROSELYN [facility] sodium chloride (NS) injection 5 mL 2023-07 02:16: 03 Yes 5mL 5 mL, Intravenou s, PRN, Starting on Sat07/03/24 at 2016, Until Discontinu ed, Routine, IV line flushing [facility] benzonatate 100 mg capsule 2023-07 00:00: 00 Yes [id number] 100mg Take 1 capsule by mouth 3 (three) times daily as needed for Cough. [facility] proMETHazin e 25 mg tablet 2023-07 00:00: 00 Yes [id number] 25mg Take 1 tablet by mouth every 6 (six) hours as needed for Nausea and Vomiting (N/V). [facility] dicyclomine 10 mg capsule 2023-07 00:00: 00 Yes [id number] 10mg Take 1 capsule by mouth 3 (three) times daily as needed for Abdominal pain. [facility] Gabapentin 300 MG oral Capsule 2023-07 00:00: 00 Yes 1 cap po 30-60 min prior to MRI. Kellee Buckley - Shobha pinedo cephALEXin (KEFLEX) capsule 500 mg 2023-07 08:45: 00 06-21 08:53 :00 No 500mg 500 mg, Oral, ONCE, 1 dose, On 06/21/24 at 0245, ROSELYN, Reason for Anti-Infec tive: Documented Infection, Documented Infection Site: Skin / Soft Tissue, Duration of Therapy: Once (ED) [facility] doxycycline hyclate (Vibramycin ) capsule 100 mg 2023-07 08:45: 00 06-21 08:53 :00 No 100mg 100 mg, Oral, ONCE, 1 dose, On 06/21/24 at 0245, ROSELYN, Reason for Anti-Infec tive: Documented Infection, Documented Infection Site: Skin / Soft Tissue, Duration of Therapy: Once (ED) [facility] doxycycline hyclate 100 mg capsule 2023-07 00:00: 00 06-29 05:59 :00 No [id number] 100mg Take 1 capsule by mouth in the morning and 1 capsule in the evening. Do all this for 7 days. [facility] cephALEXin 500 mg capsule 2023-07 00:00: 00 06-29 05:59 :00 No [id number] 500mg Take 1 capsule by mouth 4 (four) times daily for 7 days. [facility] iopamidol (ISOVUE 370-500 mL) injection 100 mL 2023-07 06:30: 00 06-15 06:30 :00 No [id number] 100mL 100 mL, Intravenou s, ONCE, 1 dose, On Sat06/15/24 at 0030, Routine [facility] morpHINE (4 mg/mL) injection 4 mg 2023-07 06:00: 00 06-15 05:57 :00 No 4mg 4 mg, Slow IV Push, ONCE, 1 dose, On Sat06/15/24 at 0000, STAT [facility] proMETHazin e (PHENERGAN) 12.5 mg in NS 50 mL IV piggyback (CNR) 2023-07 05:15: 00 06-15 05:56 :00 No 12.5mg 12.5 mg, IV Piggyback, at 200 mL/hr Administer over 15 Minutes, ONCE, 1 dose, On 06/14/24 at 2315, ROSELYN [facility] NaCl 0.9% (NS) IV infusion 1,000 mL 2023-07 04:30: 00 06-15 05:28 :00 No 1000mL at 999 mL/hr, Intravenou s, ONCE, 1 dose, On Sat06/14/24 at 2230, Routine [facility] fentanyl PF (SUBLIMAZE (PF)) injection 50 mcg 2023-07 04:00: 00 06-15 04:23 :00 No 50ug 50 mcg, Slow IV Push, ONCE, 1 dose, On Sat06/14/24 at 2200, Routine [facility] famotidine (PEPCID (PF)) injection 20 mg 2023-07 03:30: 00 06-15 04:18 :00 No 20mg 20 mg, Slow IV Push, ONCE, 1 dose, On Sat06/14/24 at 2130, ROSELYN [facility] ondansetron (ZOFRAN (PF)) injection 4 mg 2023-07 03:30: 00 06-15 04:20 :00 No 4mg 4 mg, Slow IV Push, ONCE, 1 dose, On 06/14/24 at 2130, Administer over 2-5 Minutes, 2 mL [facility] proMETHazin e 25 mg tablet 2023-07 00:00: 00 Yes [id number] 25mg Take 1 tablet by mouth every 6 (six) hours as needed for Nausea and Vomiting (N/V). [facility] morpHINE (4 mg/mL) injection 4 mg 2023-07 08:15: 00 06-07 08:11 :00 No 4mg 4 mg, Slow IV Push, ONCE, 1 dose, On 06/07/24 at 0215, STAT [facility] ondansetron (ZOFRAN (PF)) injection 4 mg 2023-07 05:15: 00 06-07 05:23 :00 No 4mg 4 mg, Slow IV Push, ONCE, 1 dose, On 06/06/24 at 2315, Administer over 2-5 Minutes, 2 mL [facility] morpHINE (4 mg/mL) injection 4 mg 2023-07 05:15: 00 06-07 05:21 :00 No 4mg 4 mg, Slow IV Push, ONCE, 1 dose, On 06/06/24 at 2315, STAT [facility] nitroglycer in (NITROSTAT) sublingual tablet 0.4 mg 2023-07 05:08: 35 Yes .4mg 0.4 mg, Sublingual , Q5MIN PRN, 3 doses, Starting on 06/06/24 at 2308, Until Discontinu ed, ROSELYN, Chest pain [facility] hydrOXYzine Pamoate 50 MG oral Capsule 2023-07 13:02: 35 Yes [id number] 50mg Q.5D Take 1 capsule (50 mg total) by mouth 2 times daily as needed for anxiety. Kellee pinedo Vitamin D, Ergocalcife rol, 1.25 MG (81602 UT) oral Capsule 2023-07 00:00: 00 Yes [id number] 97252N Q1W Take 1 capsule (50,000 units total) by mouth once a week. Kellee pinedo ondansetron (ZOFRAN-ODT ) disintegrat ing tablet 4 mg 2023-07 20:15: 00 05-19 19:27 :00 No 4mg 4 mg, Oral, ONCE, 1 dose, On Sat05/19/24 at 1415, Routine [facility] HYDROcodone -acetaminop hen (NORCO 5) tablet 1 tablet 2023-07 18:00: 00 05-19 19:27 :00 No 1{tbl} 1 tablet, Oral, ONCE, 1 dose, On Sat05/19/24 at 1200, [facility] ondansetron 4 mg disintegrat ing tablet 2023-07 00:00: 00 Yes [id number] 4mg Take 1 tablet by mouth every 8 (eight) hours as needed for Nausea and Vomiting (N/V). [facility] hydrOXYzine Pamoate 50 MG oral Capsule 2023-07 10:26: 29 Yes [id number] 50mg Q.5D Take 1 capsule (50 mg total) by mouth 2 times daily as needed for anxiety. Kellee pinedo ondansetron (ZOFRAN (PF)) injection 4 mg 2023-07 03:45: 00 05-18 03:42 :00 No 4mg 4 mg, Slow IV Push, ONCE, 1 dose, On 05/17/24 at 2145, [facility] morpHINE (4 mg/mL) injection 4 mg 2023-07 03:45: 00 05-18 03:42 :00 No 4mg 4 mg, Slow IV Push, ONCE, 1 dose, On 05/17/24 at 2145, STAT [facility] ondansetron (ZOFRAN (PF)) injection 4 mg 2023-07 01:00: 00 05-18 01:21 :00 No 4mg 4 mg, Slow IV Push, ONCE, 1 dose, On 05/17/24 at 1900, [facility] fentanyl PF (SUBLIMAZE (PF)) injection 50 mcg 2023-07 01:00: 00 05-18 01:21 :00 No 50ug 50 mcg, Slow IV Push, ONCE, 1 dose, On 05/17/24 at 1900, STAT [facility] Suvorexant (Belsomra) 20 MG oral Tablet 2023-07 00:00: 00 Yes [id number] 1{tbl} QD Take 1 tablet by mouth nightly. Kellee pinedo Methocarbam ol 750 MG oral Tablet 2023-07 00:00: 00 Yes [id number] 750mg Q.25D Take 1 tablet (750 mg total) by mouth 4 times daily. Kellee pinedo Acetaminoph en-Codeine 300-30 MG oral Tablet 2023-07 00:00: 00 Yes [id number] Kellee pinedo Lorazepam (ATIVAN) 0.5 MG oral Tablet tablet 2023-07 00:00: 00 Yes [id number] .5mg Q.5D Take 1 tablet (0.5 mg total) by mouth 2 times daily as needed for anxiety. Kellee pinedo Sertraline HCl 50 MG oral Tablet 2023-07 00:00: 00 Yes [id number] 50mg QD Take 1 tablet (50 mg total) by mouth daily Take in addition to 100 mg tablet for a total dose of 150 mg daily. Kellee pinedo Sertraline HCl 100 MG oral Tablet 2023-07 00:00: 00 Yes [id number] 100mg Take 1 tablet (100 mg total) by mouth every morning Take in addition to 50 mg tablet for a total dose of 150 mg daily. Kellee pinedo Isosorbide Mononitrate CR 30 MG oral TABLET SR 24 HR 2023-07 00:00: 00 Yes [id number] TAKE THREE TABLETS BY MOUTH ONCE DAILY (90MG DAILY) Kellee pinedo ondansetron (ZOFRAN (PF)) injection 4 mg 2023-07 01:30: 00 05-08 00:31 :00 No 4mg 4 mg, Slow IV Push, ONCE, 1 dose, On Sat05/07/24 at 2030, [facility] morpHINE (4 mg/mL) injection 4 mg 2023-07 01:30: 00 05-08 01:20 :00 No 4mg 4 mg, Slow IV Push, ONCE, 1 dose, On Sat05/07/24 at 2030, STAT [facility] ketorolac (TORADOL) injection 15 mg 2023-07 01:30: 00 05-08 00:30 :00 No 15mg 15 mg, Slow IV Push, ONCE, 1 dose, On Sat05/07/24 at 2030, [facility] phenazopyri dine 200 mg tablet 2023-07 0 00:00: 00 Yes [id number] 200mg Take 1 tablet by mouth in the morning and 1 tablet at noon and 1 tablet in the evening. [facility] Rosuvastati n Calcium 20 MG oral Tablet 2023-07 0 00:00: 00 Yes 20mg QD Take 1 tablet (20 mg total) by mouth daily. Kellee pinedo Metoprolol Succinate 25 MG oral TABLET SR 24 HR 2023-07 00:00: 00 Yes [id number] 25mg QD Take 1 tablet (25 mg total) by mouth daily. Kellee pinedo Dicyclomine HCl 20 MG oral Tablet 2023-07 00:00: 00 Yes TAKE 1 TABLET BY MOUTH FOUR TIMES A DAY NEEDED FOR PAIN Kellee pinedo Ondansetron (ZOFRAN) 4 MG oral TABLET DISPERSIBLE 2023-07 00:00: 00 Yes 4mg Q.[id number] 3D Take 1 tablet (4 mg total) by mouth 3 times daily. Kellee pinedo Belsomra 20 MG oral Tablet 2023-07 00:00: 00 05-18 00:00 :00 No [id number] 1{tbl} QD take 1 tablet by mouth every day at night Kellee pinedo Nitrofurant oin (Macrobid *) 100 Mg CAP Nitrofurant oin (Macrobid *) 100 Mg CAP 2023-07 18:32: 00 Yes 100 [facility] Ondansetron Hcl (Zofran *) 4 Mg Tablet Disint Ondansetron Hcl (Zofran *) 4 Mg Tablet Disint 2023-07 0 18:32: 00 Yes 1 [facility] cefTRIAXone (ROCEPHIN) 1,000 mg in NaCl 0.9% (NS) 100 mL MINI-BAG 2023-07 0 01:15: 00 04-09 01:24 :00 No 1000mg 1,000 mg, IV Piggyback, ONCE, 1 dose, On Sat04/08/24 at 2015, Administer over 30 Minutes, 100 mL, Reason for Anti-Infec tive: Documented Infection, Documented Infection Site: Urine, Duration of Therapy: Once (ED) [facility] fentanyl PF (SUBLIMAZE (PF)) injection 25 mcg 2023-07 00:15: 00 04-09 00:18 :00 No 25ug 25 mcg, Slow IV Push, ONCE, 1 dose, On Sat04/08/24 at 1915, STAT [facility] NaCl 0.9% (NS) bolus infusion 1,000 mL 2023-07 23:45: 00 04-09 01:24 :00 No 1000mL at 999 mL/hr, 1,000 mL, IV Infusion, ONCE, 1 dose, On Sat04/08/24 at 1845, [facility] ondansetron (ZOFRAN (PF)) injection 4 mg 2023-07 23:00: 00 04-08 22:57 :00 No 4mg 4 mg, Slow IV Push, ONCE, 1 dose, On Sat04/08/24 at 1800, [facility] ketorolac (TORADOL) injection 30 mg 2023-07 23:00: 00 04-08 22:57 :00 No 30mg 30 mg, Slow IV Push, ONCE, 1 dose, On Sat04/08/24 at 1800, [facility] sodium chloride (NS) injection 5 mL 2023-07 22:33: 00 Yes 5mL 5 mL, Intravenou s, PRN, Starting on Sat04/08/24 at 1733, Until Discontinu ed, Routine, IV line flushing [facility] ciprofloxac in HCl 500 mg tablet 2023-07 00:00: 00 Yes [id number] 500mg Take 1 tablet by mouth in the morning and 1 tablet in the evening. [facility] Promethazin e HCl (PHENERGAN) 25 MG oral Tablet 907 00:00: 00 Yes 25mg Q.[id number] 3D Take 1 tablet (25 mg total) by mouth every 8 hours as needed for nausea. Kellee pinedo Clopidogrel Bisulfate (PLAVIX) 75 MG oral Tablet 02-09 00:00: 00 Yes [id number] 75mg QD take 1 tablet by mouth every day Kellee pinedo Aspirin Low Dose 81 MG oral Tablet Delayed Response 02-09 00:00: 00 Yes [id number] 81mg QD take 1 tablet by mouth every day Kellee pinedo Methylpredn isolone Acetate (Depo-Medro l) 40 mg/ml - Physician Administere d ([id number]) 02-05 13:21: 25 No [id number] 9104 40mg 40 mg, Physician Administer ed, ONCE, 1 dose, On [place] 02/06/24 at 1145 Kellee pinedo hydrOXYzine Pamoate 50 MG oral Capsule 02-05 11:06: 49 Yes [id number] 50mg Q.5D Take 1 capsule (50 mg total) by mouth 2 times daily as needed for anxiety. Kellee pinedo Isosorbide Mononitrate CR 60 MG oral TABLET SR 24 HR 02-04 00:00: 00 Yes Kellee pinedo Lorazepam (ATIVAN) 0.5 MG oral Tablet tablet 01-09 00:00: 00 Yes [id number] .5mg Q.5D take 1 tablet by mouth 2 times daily as needed for anxiety Kellee pinedo Aspirin (Aspirin Low Dose) 81 MG oral Tablet Delayed Response 01-05 00:00: 00 Yes [id number] 81mg QD Take 1 tablet (81 mg total) by mouth daily. Kellee pinedo Atorvastati n Calcium 40 MG oral Tablet 01-05 00:00: 00 Yes [id number] 40mg QD Take 1 tablet (40 mg total) by mouth daily. Kellee pinedo Suvorexant (Belsomra) 20 MG oral Tablet 01-05 00:00: 00 Yes [id number] 1{tbl} QD Take 1 tablet by mouth nightly. Kellee pinedo Clopidogrel Bisulfate (PLAVIX) 75 MG oral Tablet 01-05 00:00: 00 Yes [id number] 75mg QD Take 1 tablet (75 mg [...] MG oral Capsule 12-12 09:19: 23 Yes [id number] 50mg Q.5D Take 1 capsule (50 mg total) by mouth 2 times daily as needed for anxiety. Kellee pinedo Lorazepam (ATIVAN) 0.5 MG oral Tablet tablet 12-12 00:00: 00 Yes [id number] .5mg Q.5D Take 1 tablet (0.5 mg total) by mouth 2 times daily as needed for anxiety. Kellee pinedo Aspirin Low Dose 81 MG oral Tablet Delayed Response 12-05 00:00: 00 Yes [id number] 81mg Take 1 tablet (81 mg total) by mouth daily. Kellee pinedo Atorvastati n Calcium 40 MG oral Tablet 12-05 00:00: 00 Yes [id number] 40mg Take 1 tablet (40 mg total) by mouth daily. Kellee pinedo Clopidogrel Bisulfate (PLAVIX) 75 MG oral Tablet 12-05 00:00: 00 Yes [id number] 75mg Take 1 tablet (75 mg total) by mouth daily. Kellee pinedo Mometasone Furo-Formot camelia Fum (Dulera) 200-5 MCG/ACT inhalation Aerosol 12-05 00:00: 00 05-18 00:00 :00 No TWICE DAILY Kellee pinedo Vitamin D, Ergocalcife rol, 1.25 MG (38939 UT) oral Capsule 12-04 00:00: 00 Yes [id number] 50305G Q1W Take 1 capsule (50,000 units total) by mouth once a week. Kellee pinedo Ferrous Sulfate 325 (65 Fe) MG oral Tablet 12-04 00:00: 00 Yes [id number] 325mg QD Take 1 tablet (325 mg total) by mouth daily (with breakfast) . Kellee pinedo Clopidogrel Bisulfate (PLAVIX) 75 MG oral Tablet 12-04 00:00: 00 Yes [id number] 75mg QD Take 1 tablet (75 mg total) by mouth. Kellee pinedo Mirtazapine 45 MG oral Tablet 12-02 10:49: 07 12-02 00:00 :00 No [id number] 45mg Take 1 tablet (45 mg total) by mouth nightly. Kellee pinedo hydrOXYzine Pamoate 50 MG oral Capsule 12-02 10:49: 04 Yes [id number] 50mg Q.5D Take 1 capsule (50 mg total) by mouth 2 times daily as needed for anxiety. Kellee pinedo Ascorbic Acid 500 MG oral Tablet 12-02 10:48: 55 12-02 00:00 :00 No 50mg Take 50 mg by mouth. Kellee pinedo Suvorexant (Belsomra) 20 MG oral Tablet 12-02 00:00: 00 Yes [id number] 1{tbl} Take 1 tablet by mouth nightly. Kellee pinedo Lorazepam 1 MG oral Tablet 12-02 00:00: 00 12-12 00:00 :00 No [id number] 1mg Q.5D Take 1 tablet (1 mg total) by mouth 2 times daily as needed for anxiety. Kellee pinedo Doxepin HCl 3 MG oral Tablet 11-27 00:00: 00 05-18 00:00 :00 No [id number] 1{tbl} QD TAKE 1 TABLET BY MOUTH EVERY DAY AT NIGHT Kellee pinedo Aripiprazol e 5 MG oral Tablet 11-27 00:00: 00 05-18 00:00 :00 No [id number] 5mg QD TAKE 1 TABLET (5 MG TOTAL) BY MOUTH DAILY. Kellee pinedo Mirtazapine 45 MG oral Tablet 10-28 13:20: 59 Yes [id number] 45mg Take 1 tablet (45 mg total) by mouth nightly. Kellee pinedo Ascorbic Acid 500 MG oral Tablet 10-28 13:20: 47 Yes 50mg Take 50 mg by mouth. Kellee pinedo hydrOXYzine Pamoate 50 MG oral Capsule 10-28 13:20: 47 10-28 00:00 :00 No [id number] 50mg Q.5D Take 1 capsule (50 mg total) by mouth every 4 to 6 hours as needed. Kellee pinedo Sertraline HCl 150 MG oral Capsule 10-28 13:20: 03 10-28 00:00 :00 No 150mg Take 150 mg by mouth daily. Kellee pinedo Doxepin HCl 3 MG oral Tablet 10-28 00:00: 00 Yes [id number] 1{tbl} Take 1 tablet by mouth nightly. Kellee pinedo Aripiprazol e 5 MG oral Tablet 10-28 00:00: 00 Yes [id number] 5mg Take 1 tablet (5 mg total) by mouth daily. Kellee pinedo Suvorexant 10 MG oral Tablet 10-28 00:00: 00 12-02 00:00 :00 No [id number] 1{tbl} Take 1 tablet by mouth nightly. Kellee pinedo Sertraline HCl 50 MG oral Tablet 10-26 00:00: 00 Yes [id number] Kellee pinedo HYDROcodone -acetaminop hen (NORCO) 10-325 mg tablet 1 tablet 10-10 06:15: 00 10-10 05:25 :00 No 1{tbl} 1 tablet, Oral, ONCE NOW, 1 dose, On Sat10/11/23 at 0115, [facility] iopamidol (ISOVUE 370-500 mL) injection 100 mL 10-10 05:00: 00 10-10 05:00 :00 No [id number] 100mL 100 mL, Intravenou s, ONCE, 1 dose, On Sat10/11/23 at 0000, Routine [facility] ketorolac (TORADOL) injection 30 mg 10-10 04:30: 00 10-10 03:29 :00 No 30mg 30 mg, Slow IV Push, ONCE, 1 dose, On Sat10/10/23 at 2330, Routine [facility] NaCl 0.9% (NS) IV infusion 1,000 mL 10-10 04:15: 00 10-10 05:18 :00 No 1000mL at 999 mL/hr, Intravenou s, ONCE, 1 dose, On Sat10/10/23 at 2315, Routine [facility] ondansetron (ZOFRAN (PF)) injection 4 mg 10-10 04:00: 00 10-10 03:54 :00 No 4mg 4 mg, Slow IV Push, ONCE, 1 dose, On Sat10/10/23 at 2300, [facility] morpHINE (4 mg/mL) injection 4 mg 10-10 04:00: 00 10-10 03:54 :00 No 4mg 4 mg, Slow IV Push, ONCE, 1 dose, On [place] 10/10/23 at 2300, STAT [facility] traMADoL (ULTRAM) 50 mg tablet 10-10 00:00: 00 Yes [id number] 50mg Take 1 tablet by mouth every 6 (six) hours as needed for Pain (scale 7-10). Indication s: acute pain [facility] ondansetron (ZOFRAN) 4 mg tablet 10-10 00:00: 00 Yes [id number] 4mg Take 1 tablet by mouth every 8 (eight) hours as needed for Nausea and Vomiting (N/V). [facility] ketorolac 10 mg tablet 10-10 00:00: 00 Yes [id number] 10mg Take 1 tablet by mouth every 6 (six) hours as needed for Pain (scale 7-10). [facility] phenazopyri dine 200 mg tablet 10-10 00:00: 00 Yes [id number] 200mg Take 1 tablet by mouth in the morning and 1 tablet at noon and 1 tablet in the evening. [facility] Sertraline HCl 100 MG oral Tablet 10-09 00:00: 00 Yes [id number] 100mg Take 1 tablet (100 mg total) by mouth every morning. Kellee pinedo acetaminoph en (TYLENOL) tablet 975 mg 2022-07 04:15: 00 07-02 03:11 :00 No 975mg 975 mg, Oral, ONCE, 1 dose, [facility]07/01/23 at 2215[facility] (BENTYL) [facility] 20 mg 2022-07 03:15: 00 07-02 03:11 :00 No 20mg 20 mg, Oral, ONCE, 1 dose, On Sat07/01/23 at 2115, [facility] ketorolac (TORADOL) injection 30 mg 2022-07 03:15: 00 07-02 02:32 :00 No 30mg 30 mg, Slow IV Push, ONCE, 1 dose, On Sat07/01/23 at 2115, Routine [facility] ondansetron (ZOFRAN (PF)) injection 4 mg 2022-07 03:00: 00 07-02 02:03 :00 No 4mg 4 mg, Slow IV Push, ONCE, 1 dose, On Sat07/01/23 at 2100[facility] 0.9% (NS) bolus infusion 1,000 mL 2022-07 03:00: 00 07-02 04:10 :00 No 1000mL at 999 mL/hr, 1,000 mL, IV Infusion, ONCE, 1 dose, On Sat07/01/23 at 2100, STAT [facility] dicyclomine 20 mg tablet 2022-07 00:00: 00 Yes [id number] 20mg Take 1 tablet by mouth 4 (four) times daily. [facility] ondansetron 4 mg disintegrat ing tablet 2022-07 00:00: 00 Yes [id number] 4mg Take 1 tablet by mouth every 4 (four) hours as needed for Nausea and Vomiting (N/V). [facility] Alprazolam (Alprazolam *) 1 Mg TAB Alprazolam (Alprazolam *) 1 Mg TAB 2022-07 12:08: 00 06-14 00:00 :00 No 1 [facility] Trazodone Hcl (Desyrel 100 Mg*) 100 Mg TAB Trazodone Hcl (Desyrel 100 Mg*) 100 Mg TAB 2022-07 12:07: 00 06-06 12:08 :00 No 1 [facility] Aspirin (Aspirin Ec) 81 Mg Tablet Aspirin (Aspirin Ec) 81 Mg Tablet 2022-07 11:55: 00 07-07 00:00 :00 No 81 [facility] Alprazolam (Xanax 2 Mg*) 2 Mg TAB Alprazolam (Xanax 2 Mg*) 2 Mg TAB 2022-07 11:09: 40 06-06 12:08 :00 No 2 [facility] Trazodone Hcl (Desyrel 300 Mg*) 300 Mg TAB Trazodone Hcl (Desyrel 300 Mg*) 300 Mg TAB 2022-07 11:09: 39 05-13 15:45 :00 No 300 [facility] Alprazolam 1 MG oral Tablet 2022-07 00:00: 00 12-12 00:00 :00 No [id number] 2mg Take 2 tablets (2 mg total) by mouth 2 times daily. Kellee pinedo Pantoprazol e * (Protonix Ec *) 20 Mg Tablet Pantoprazol e * (Protonix Ec *) [address] 2022-07 15:44: 00 06-05 00:28 :00 No 20 [facility] Sucralfate (Carafate *) 1 Gm TAB Sucralfate (Carafate *) 1 Gm TAB 2022-07 15:44: 00 06-05 00:28 :00 No 1 [facility] Ciprofloxac in Hcl (Cipro *) 500 Mg TAB Ciprofloxac in Hcl (Cipro *) 500 Mg TAB 2022-07 15:44: 00 05-16 00:00 :00 No 500 [facility] Pantoprazol e Sodium 20 MG oral Tablet Delayed Response 2022-07 00:00: 00 12-02 00:00 :00 No Take by mouth. Kellee pinedo ketorolac (TORADOL) injection 15 mg 2022-07 01:00: 00 05-10 00:09 :00 No 15mg 15 mg, Slow IV Push, ONCE, 1 dose, On Sat05/09/23 at 2000, [facility] proCHLORper azine (COMPAZINE) injection 5 mg 2022-07 23:30: 00 05-09 22:48 :00 No 5mg 5 mg, Slow IV Push, ONCE, 1 dose, On Sat05/09/23 at 1830, [facility] diphenhydrA MINE (BENADRYL) injection 25 mg 2022-07 22:45: 00 05-09 22:48 :00 No 25mg 25 mg, Slow IV Push, ONCE, 1 dose, On Sat05/09/23 at 1745, [facility] HYDROcodone -acetaminop hen (NORCO) 10-325 mg tablet 1 tablet 2022-07 025 02:00: 00 05-01 01:04 :00 No 1{tbl} 1 tablet, Oral, ONCE, 1 dose, On Sat04/30/23 at 2100, Routine [facility] iopamidol (ISOVUE 370-500 mL) injection 100 mL 2022-07 00:45: 00 05-01 00:45 :00 No [id number] 100mL 100 mL, Intravenou s, ONCE, 1 dose, On Sat04/30/23 at 1945, Routine [facility] NaCl 0.9% (NS) bolus infusion 1,000 mL 2022-07 00:00: 00 05-01 00:45 :00 No 1000mL at 999 mL/hr, 1,000 mL, IV Piggyback, ONCE, 1 dose, On Sat04/30/23 at 1900, STAT [facility] proCHLORper azine (COMPAZINE) injection 5 mg 2022-07 23:45: 00 04-30 23:09 :00 No 5mg 5 mg, Slow IV Push, ONCE, 1 dose, On Sat04/30/23 at 1845, [facility] diphenhydrA MINE (BENADRYL) injection 25 mg 2022-07 23:00: 00 04-30 23:09 :00 No 25mg 25 mg, Slow IV Push, ONCE, 1 dose, On Sat04/30/23 at 1800, STAT [facility] dicyclomine 20 mg tablet 2022-07 00:00: 00 07-01 00:00 :00 No [id number] 20mg Take 1 tablet by mouth 4 (four) times daily. [facility] acetaminoph en (TYLENOL) tablet 1,000 mg 2022-07 02:45: 00 04-17 02:43 :00 No 1000mg 1,000 mg, Oral, ONCE, 1 dose, On Sat04/16/23 at 2145, [facility] ondansetron (ZOFRAN (PF)) injection 4 mg 2022-07 0 03:15: 00 04-09 02:13 :00 No 4mg 4 mg, Slow IV Push, ONCE, 1 dose, On Sat04/08/23 at 2215, [facility] dicyclomine (BENTYL) tablet 20 mg 2022-07 03:15: 00 04-09 02:16 :00 No 20mg 20 mg, Oral, ONCE, 1 dose, On Sat04/08/23 at 2215, Routine [facility] ondansetron (ZOFRAN (PF)) injection 4 mg 2022-07 23:45: 00 04-08 23:16 :00 No 4mg 4 mg, Slow IV Push, ONCE, 1 dose, On Sat04/08/23 at 1845, [facility] morpHINE (2 mg/mL) injection 4 mg 2022-07 23:45: 00 04-08 23:45 :00 No 4mg 4 mg, Slow IV Push, ONCE, 1 dose, On Sat04/08/23 at 1845, STAT [facility] ondansetron 4 mg disintegrat ing tablet 2022-07 00:00: 00 07-01 00:00 :00 No [id number] 4mg Take 1 tablet by mouth every 8 (eight) hours as needed for Nausea and Vomiting (N/V). [facility] dicyclomine 20 mg tablet 2022-07 00:00: 00 04-30 00:00 :00 No [id number] 20mg Take 1 tablet by mouth 4 (four) times daily. [facility] acetaminoph en (TYLENOL) tablet 1,000 mg 03-10 04:30: 00 03-10 04:29 :00 No 1000mg 1,000 mg, Oral, ONCE, 1 dose, On 03/09/23 at 2330, [facility] iopamidol (ISOVUE 370-500 mL) injection 85 mL 03-10 04:30: 00 03-10 04:30 :00 No [id number] 85mL 85 mL, Intravenou s, ONCE, 1 dose, On 03/09/23 at 2330, Routine [facility] FENTanyl PF (SUBLIMAZE (PF)) injection 75 mcg 03-10 04:00: 00 03-10 02:58 :00 No 75ug 75 mcg, Slow IV Push, ONCE, 1 dose, On 03/09/23 at 2300, STAT [facility] NaCl 0.9% (NS) IV infusion 1,000 mL 03-10 03:00: 00 Yes 1000mL at 20 mL/hr, IV Infusion, CONTINUOUS , Starting on 03/09/23 at 2200, Until Discontinu ed, Routine [facility] ondansetron (ZOFRAN (PF)) injection 4 mg 03-10 02:00: 00 03-10 02:01 :00 No 4mg 4 mg, Slow IV Push, ONCE, 1 dose, On 03/09/23 at 2100, [facility] morpHINE (4 mg/mL) injection 4 mg 03-10 02:00: 00 03-10 02:01 :00 No 4mg 4 mg, Slow IV Push, ONCE, 1 dose, On 03/09/23 at 2100, STAT [facility] polyethylen e glycol 3350 (MIRALAX) 17 gram powder 03-09 00:00: 00 Yes [id number] 1{packe t} Take 1 Packet by mouth once daily as needed for Constipati on. [facility] Simethicone 125 mg 03-09 00:00: 00 Yes [id number] 125mg Take 1 capsule by mouth after meals and at bedtime as needed for Gas. [facility] iopamidol (ISOVUE 370-500 mL) injection 100 mL 03-02 06:15: 00 03-02 06:15 :00 No [id number] 100mL 100 mL, Intravenou s, ONCE, 1 dose, On 03/02/23 at 0115, Routine [facility] NaCl 0.9% (NS) IV infusion 1,000 mL 03-02 05:15: 00 Yes 1000mL at 999 mL/hr, Intravenou s, CONTINUOUS , Starting on 03/02/23 at 0015, Until Discontinu ed, Routine [facility] ketorolac (TORADOL) injection 30 mg 03-02 05:15: 00 03-02 04:20 :00 No 30mg 30 mg, Slow IV Push, ONCE, 1 dose, On 03/02/23 at 0015, Routine [facility] ondansetron (ZOFRAN (PF)) injection 4 mg 03-02 05:00: 00 03-02 05:24 :00 No 4mg 4 mg, Slow IV Push, ONCE, 1 dose, On 03/02/23 at 0000, [facility] morpHINE (4 mg/mL) injection 4 mg 03-02 05:00: 00 03-02 05:24 :00 No 4mg 4 mg, Slow IV Push, ONCE, 1 dose, On 03/02/23 at 0000, STAT [facility] ondansetron (ZOFRAN (PF)) injection 4 mg 03-02 04:15: 00 03-02 04:21 :00 No 4mg 4 mg, Slow IV Push, ONCE, 1 dose, On [facility]03/01/23 at 2315[facility] On[facility] 4 MG oral Tablet 03-02 00:00: 00 05-18 00:00 :00 No [id number] 4mg Q.[id number] 3D Take 1 tablet (4 mg total) by mouth every 8 hours as needed. [facility] pined[facility] dicyclomine 20 mg tablet 03-02 00:00: 00 04-30 00:00 :00 No [id number] 20mg Take 1 tablet by mouth every 6 (six) hours as needed for Abdominal pain. [facility] metoclopram tracy HCl (REGLAN) injection 10 mg 02-18 06:45: 00 02-18 06:43 :00 No 10mg 10 mg, Slow IV Push, ONCE, 1 dose, On Sat02/18/23 at 0145, [facility] morpHINE (4 mg/mL) injection 4 mg 02-18 05:30: 00 02-18 05:28 :00 No 4mg 4 mg, Slow IV Push, ONCE, 1 dose, On Sat02/18/23 at 0030, STAT [facility] ondansetron (ZOFRAN (PF)) injection 4 mg 02-18 05:30: 00 02-18 05:28 :00 No 4mg 4 mg, Slow IV Push, ONCE, 1 dose, On Sat02/18/23 at 0030, [facility] NaCl 0.9% (NS) bolus infusion 1,000 mL 02-18 05:30: 00 02-18 05:15 :00 No 1000mL at 999 mL/hr, 1,000 mL, IV Infusion, ONCE, 1 dose, On Sat02/18/23 at 0030, STAT [facility] proMETHazin e (PHENERGAN) 25 mg in NaCl 0.9% (NS) 50 mL IV piggyback 02-18 04:30: 00 02-18 04:28 :00 No 25mg 25 mg, IV Piggyback, ONCE, 1 dose, On Sat02/17/23 at 2330, [facility] proMETHazin e 25 mg tablet 02-18 00:00: 00 Yes [id number] 25mg Take 1 tablet by mouth every 6 (six) hours as needed for Nausea and Vomiting (N/V). [facility] escitalopra m oxalate (LEXAPRO) 5 mg tablet 02-17 16:23: 24 Yes 10mg Take 2 tablets by mouth at bedtime. [facility] topiramate (TOPAMAX) 200 mg tablet 02-17 16:23: 24 Yes 200mg Take 1 tablet by mouth every evening. [facility] bupropion HCl (WELLBUTRIN ORAL) 02-17 16:23: 24 Yes 150mg Take 150 mg by mouth every morning. [facility] OLANZapine (ZYPREXA) 15 mg tablet 02-17 16:23: 24 Yes 15mg Take 1 tablet by mouth every evening. [facility] ALPRAZOLAM ORAL 02-17 16:23: 24 Yes 2mg Take 2 mg by mouth in the morning and 2 mg in the evening. [facility] melatonin 10 mg Tab 02-17 16:23: 24 Yes 1{tbl} Take 1 tablet by mouth at bedtime. [facility] trazodone HCl (TRAZODONE ORAL) 02-17 16:23: 24 Yes 400mg Take 400 mg by mouth at bedtime. [facility] lactated ringers IV infusion 1,000 mL 02-17 02:15: 00 02-17 22:14 :00 No 1000mL at 100 mL/hr, 1,000 mL, IV Infusion, CONTINUOUS , Starting on 02/16/23 at 2115, Until 02/17/23 at 1714, Routine [facility] traZODone (DESYREL) tablet 400 mg 02-17 02:00: 00 Yes 400mg 400 mg, Oral, QHS, First dose on 02/16/23 at 2100, Until Discontinu ed [facility] melatonin (MELATIN) tablet 9 mg 02-17 02:00: 00 Yes 9mg 9 mg, Oral, QHS, First dose on 02/16/23 at 2100, Until Discontinu ed [facility] morpHINE (2 mg/mL) injection 2 mg 02-17 01:07: 50 03-01 01:06 :50 No 2mg 2 mg, Slow IV Push, Q4HPRN, Starting on 02/16/23 at 2006, Until [place] 02/28/23 at 2005, Routine, Pain (scale 7-10) [facility] OLANZapine (ZyPREXA) tablet 15 mg 02-16 22:00: 00 Yes 15mg 15 mg, Oral, QPM, First dose on 02/16/23 at 1700, Until Discontinu ed, Routine [facility] buPROPion XL (WELLBUTRIN XL) tablet 150 mg 02-16 14:00: 00 Yes 150mg 150 mg, Oral, DAILY, First dose on 02/16/23 at 0900, Until Discontinu ed [facility] enoxaparin (LOVENOX) injection 40 mg 02-16 14:00: 00 Yes 40mg 40 mg, Subcutaneo us, DAILY, First dose on 02/16/23 at 0900, Until Discontinu ed, Routine [facility] methocarbam oL (ROBAXIN) tablet 500 mg 02-16 06:04: 59 Yes 500mg 500 mg, Oral, Q6HPRN, Starting on 02/16/23 at 0104, Until Discontinu ed, Routine, Muscle Spasms [facility] ALPRAZolam (XANAX) tablet 2 mg 02-16 06:03: 54 Yes 2mg 2 mg, Oral, TIDPRN, Starting on 02/16/23 at 0103, Until Discontinu ed, Anxiety [facility] lactated ringers IV infusion 1,000 mL 02-16 03:15: 00 02-16 23:14 :00 No 1000mL at 100 mL/hr, 1,000 mL, IV Infusion, CONTINUOUS , Starting on Sat02/15/23 at 2215, Until 02/16/23 at 1814, Routine [facility] morpHINE (2 mg/mL) injection 2 mg 02-16 03:07: 02 02-17 01:08 :14 No 2mg 2 mg, Slow IV Push, Q4HPRN, Starting on Sat02/15/23 at 2207, Until 02/16/23 at 2008, Routine, Pain (scale 7-10) [facility] traMADoL (ULTRAM) tablet 50 mg 02-16 03:06: 59 02-18 03:05 :59 No 50mg 50 mg, Oral, Q8HPRN, Starting on Sat02/15/23 at 2206, Until Sat02/17/23 at 2205, Routine, Pain (scale 4-6) [facility] acetaminoph en (TYLENOL) tablet 1,000 mg 02-16 03:06: 50 Yes 1000mg 1,000 mg, Oral, Q6HPRN, Starting on Sat02/15/23 at 2206, Until Discontinu ed, Routine, Pain (scale 1-3), Temp > 38 C [facility] ALPRAZolam (XANAX) 1 mg tablet 02-16 01:09: 19 02-15 00:00 :00 No 1mg Take 1 tablet by mouth in the morning and 1 tablet in the evening. [facility] iopamidol (ISOVUE 370-500 mL) injection 80 mL 02-16 00:30: 00 02-16 00:30 :00 No [id number] 80mL 80 mL, Intravenou s, ONCE, 1 dose, On Sat02/15/23 at 1930, Routine [facility] lactated ringers IV infusion 1,000 mL 02-16 00:00: 00 02-16 03:07 :30 No [id number] 1000mL at 500 mL/hr, 1,000 mL, IV Infusion, CONTINUOUS , Starting on Sat02/15/23 at 1900, Until Sat02/15/23 at 2207, [facility] FENTanyl PF (SUBLIMAZE (PF)) injection 75 mcg 02-15 23:45: 00 02-15 23:13 :00 No [id number] 75ug 75 mcg, Slow IV Push, ONCE, 1 dose, On Sat02/15/23 at 1845, Routine [facility] dicyclomine (BENTYL) injection 20 mg 02-15 22:15: 00 02-15 21:46 :00 No [id number] 20mg 20 mg, Intramuscu lar, ONCE NOW, 1 dose, On Sat02/15/23 at 1715, Routine [facility] LORazepam (ATIVAN) injection 1 mg 02-15 21:45: 00 02-15 21:46 :00 No [id number] 1mg 1 mg, Slow IV Push, ONCE, 1 dose, On Sat02/15/23 at 1645, STAT [facility] ondansetron (ZOFRAN (PF)) injection 4 mg 02-15 21:45: 00 02-15 21:46 :00 No [id number] 4mg 4 mg, Slow IV Push, ONCE, 1 dose, On Sat02/15/23 at 1645, [facility] HYDROcodone -acetaminop hen (NORCO) 10-325 mg tablet 1 tablet 02-15 20:15: 00 02-15 19:52 :00 No [id number] 1{tbl} 1 tablet, Oral, ONCE, 1 dose, On Sat02/15/23 at 1515, Routine [facility] Melatonin 1 mg tablet 02-15 20:08: 23 02-15 00:00 :00 No 10mg Take 10 tablets by mouth every evening. [facility] trazodone HCl (DESYREL ORAL) 02-15 20:06: 33 02-15 00:00 :00 No 200mg Take 200 mg by mouth every evening. [facility] OLANZapine (ZYPREXA) 2.5 mg tablet 02-15 20:05: 48 02-15 00:00 :00 No 2.5mg Take 1 tablet by mouth in the morning and 1 tablet in the evening. [facility] hydrOXYzine (VISTARIL) 50 mg capsule 02-15 20:03: 04 02-15 00:00 :00 No 50mg Take 1 capsule by mouth every 4 (four) hours as needed for Itching. q 4-6 hours as needed [facility] dicyclomine (BENTYL) tablet 20 mg 02-15 19:30: 00 02-15 19:52 :00 No [id number] 20mg 20 mg, Oral, ONCE, 1 dose, On Sat02/15/23 at 1430, [facility] ibuprofen (IBU) tablet 800 mg 02-15 19:30: 00 02-15 19:52 :00 No [id number] 800mg 800 mg, Oral, ONCE, 1 dose, On Sat02/15/23 at 1430, [facility] losartan 50 mg tablet 02-15 13:44: 36 02-15 00:00 :00 No 50mg Take 1 tablet by mouth in the morning. [facility] [place]-3-DHA -EPA-Fish Oil (FISH OIL) 1,000 mg (120 mg-180 mg) Cap 02-15 13:44: 15 02-15 00:00 :00 No 1000mg Take 1,000 mg by mouth daily. [facility] methocarbam oL 750 mg tablet 02-15 13:43: 47 02-15 00:00 :00 No 750mg Take 750 mg by mouth 3 (three) times daily. [facility] FENTanyl PF (SUBLIMAZE (PF)) injection 50 mcg 01-10 00:45: 00 01-09 23:46 :00 No 50ug 50 mcg, Slow IV Push, ONCE, 1 dose, On Sat01/09/22 at 1945, Routine [facility] ketorolac (TORADOL) injection 30 mg 01-09 23:45: 00 01-09 22:48 :00 No 30mg 30 mg, Slow IV Push, ONCE, 1 dose, On Sat01/09/22 at 1845, Routine [facility] aspirin chewable tablet 243 mg 12-14 14:00: 00 Yes 243mg 243 mg, Oral, DAILY, First dose on Sat12/14/21 at 0900, Until Discontinu ed, Routine [facility] ketorolac (TORADOL) injection 15 mg 12-14 08:15: 00 12-14 07:11 :00 No 15mg 15 mg, Slow IV Push, ONCE, 1 dose, On Sat12/14/21 at 0315, [facility] morpHINE (4 mg/mL) injection 4 mg 12-14 05:45: 00 12-14 04:52 :00 No 4mg 4 mg, Slow IV Push, ONCE, 1 dose, On [place] 12/14/21 at 0045, STAT [facility] cefTRIAXone (ROCEPHIN) 1,000 mg in NaCl 0.9% (NS) 50 mL MINI-BAG 12-14 05:45: 00 12-14 05:30 :00 No 1000mg 1,000 mg, IV Piggyback, ONCE, 1 dose, On [place] 12/14/21 at 0045, Administer over 30 Minutes, 50 mL
Reas on for Anti-Infec tive: Documented Infection< br>Documen kaushik Infection Site: Urine
D uration of Therapy: Other (see Comments) [facility] NaCl 0.9% (NS) bolus infusion 1,000 mL 12-14 05:45: 00 12-14 07:20 :00 No 1000mL at 999 mL/hr, 1,000 mL, IV Infusion, ONCE, 1 dose, On [place] 12/14/21 [facility] 0045[facility] 4 mg 12-14 04:45: 00 12-14 03:50 :00 No 4mg 4 mg, Slow IV Push, ONCE, 1 dose, On Sat12/13/21 at 2345, [facility] FENTanyl PF (SUBLIMAZE (PF)) injection 50 mcg 12-14 04:45: 00 12-14 03:50 :00 No 50ug 50 mcg, Slow IV Push, ONCE, 1 dose, On Sat12/13/21 at 2345, Routine [facility] ALPRAZolam (XANAX) 1 mg tablet 12-14 02:22: 13 Yes 1mg Take 1 mg by mouth 2 (two) times daily. [facility] naproxen 500 mg tablet 12-14 00:00: 00 02-15 00:00 :00 No [id number] 500mg Take 1 tablet by mouth 2 (two) times daily with meals. [facility] cefpodoxime 200 mg tablet 12-14 00:00: 00 12-22 04:59 :00 No [id number] 200mg Take 1 tablet by mouth 2 (two) times daily for 7 days. [facility] LORazepam (ATIVAN) injection 1 mg 11-12 05:00: 00 11-12 04:01 :00 No 1mg 1 mg, Slow IV Push, ONCE, 1 dose, On 11/12/21 at 0000, STAT [facility] ketorolac (TORADOL) injection 30 mg 11-12 03:30: 00 11-12 02:26 :00 No 30mg 30 mg, Slow IV Push, ONCE, 1 dose, On 11/11/21 at 2230, Routine
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 (ECOTRIN) tablet 325 mg 11-12 03:30: 00 11-12 02:25 :00 No 325mg 325 mg, Oral, ONCE, 1 dose, On 11/11/21 at 2230, STAT [facility] morpHINE (4 mg/mL) injection 4 mg 11-12 02:30: 00 11-12 01:40 :00 No 4mg 4 mg, Slow IV Push, ONCE, 1 dose, On 11/11/21 at 2130, [facility] ondansetron (ZOFRAN (PF)) injection 4 mg 11-12 02:30: 00 11-12 01:40 :00 No 4mg 4 mg, Slow IV Push, ONCE, 1 dose, On 11/11/21 at 2130, [facility] NaCl 0.9% (NS) bolus infusion 1,000 mL 11-12 02:30: 00 11-12 02:30 :00 No 1000mL at 999 mL/hr, 1,000 mL, IV Infusion, ONCE, 1 dose, On Sat11/11/21 at 2130, ROSELYN [facility] hydrOXYzine 50 mg tablet 11-11 00:00: 00 04-08 00:00 :00 No [id number] 50mg Take 1 tablet by mouth every 8 (eight) hours as needed for Anxiety. [facility] ketorolac (TORADOL) injection 30 mg 09-12 05:45: 00 09-12 04:54 :00 No 30mg 30 mg, Slow IV Push, ONCE, 1 dose, On Sat09/11/21 at 2345, Routine
economics faculty member approving Restricted medication : DEE WANG [facility] cefTRIAXone (ROCEPHIN) 1,000 mg in NaCl 0.9% (NS) 50 mL MINI-BAG 09-12 03:45: 00 09-12 03:41 :00 No 1000mg 1,000 mg, IV Piggyback, ONCE, 1 dose, On Sat09/11/21 at 2145, Administer over 30 Minutes, 50 mL
Reas on for Anti-Infec tive: Documented Infection< br>Documen kaushik Infection Site: Urine
D uration of Therapy: 7 days [facility] ondansetron (ZOFRAN (PF)) injection 4 mg 09-12 03:15: 00 09-12 02:39 :00 No 4mg 4 mg, Slow IV Push, ONCE, 1 dose, On Sat09/11/21 at 2115, ROSELYN [facility] morpHINE injection 4 mg 08 03:15: 00 09-12 02:39 :00 No 4mg 4 mg, Slow IV Push, ONCE, 1 dose, On Sat09/11/21 at 2115, STAT [facility] iopamidol (ISOVUE 370-500 mL) injection 120 mL 09-12 02:45: 00 09-12 03:00 :00 No [id number] 120mL 120 mL, Intravenou s, ONCE, 1 dose, On Sat09/11/21 at 2100, Routine [facility] sodium chloride (NS) injection 5 mL 09-12 01:33: 26 Yes 5mL 5 mL, Intravenou s, PRN, Starting on Sat09/11/21 at 1933, Until Discontinu ed, Routine, IV line flushing [facility] ibuprofen 600 mg tablet 09-11 00:00: 00 02-15 00:00 :00 No [id number] 600mg Take 1 tablet by mouth every 6 (six) hours as needed for Pain (scale 4-6). [facility] cefdinir 300 mg capsule 09-11 00:00: 00 09-19 04:59 :00 No [id number] 300mg Take 1 capsule by mouth 2 (two) times daily for 7 days. [facility] HYDROcodone -acetaminop hen (NORCO) 10-325 mg tablet 1 tablet 08-15 09:00: 00 08-15 07:59 :00 No 1{tbl} 1 tablet, Oral, ONCE, 1 dose, On Sat08/15/21 at 0300, Routine [facility] FENTanyl PF (SUBLIMAZE (PF)) injection 75 mcg 08-15 07:30: 00 08-15 06:42 :00 No 75ug 75 mcg, Intramuscu lar, ONCE, 1 dose, On Sat08/15/21 at 0130, Routine [facility] methocarbam oL (ROBAXIN) 500 mg tablet 08-15 00:00: 00 Yes [id number] 500mg Take 1 tablet by mouth every 6 (six) hours as needed for Pain (scale 7-10) (MUSCLE SPASM). [facility] traMADoL (ULTRAM) 50 mg tablet 08-15 00:00: 00 Yes [id number] 50mg Take 1 tablet by mouth every 6 (six) hours as needed for Pain (scale 7-10). Indication s: acute pain [facility] Nitrofurant oin&Nit. Macrocryst (MACROBID) 100 mg capsule 08-15 00:00: 00 02-15 00:00 :00 No [id number] 100mg Take 1 capsule by mouth 2 (two) times daily. [facility] morpHINE injection 4 mg 2020-07 08:30: 00 05-28 07:50 :00 No 4mg 4 mg, Slow IV Push, ONCE, 1 dose, On 05/28/21 at 0230, ROSE[facility]N [facility] maalox:diph enhydrAMINE :lidocaine 2 % viscous 1:1:1 ([facility]) oral suspension 15 mL 2020-07 08:00: 00 05-28 07:04 :00 No 15mL 15 mL, Oral, ONCE, 1 dose, On 05/28/21 at 0200, Routine [facility] FENTanyl PF (SUBLIMAZE (PF)) injection 50 mcg 2020-07 07:00: 00 05-28 06:02 :00 No 50ug 50 mcg, Slow IV Push, ONCE, 1 dose, On 05/28/21 at 0100, STAT [facility] famotidine (PEPCID (PF)) injection 20 mg 2020-07 07:00: 00 05-28 06:01 :00 No 20mg 20 mg, Slow IV Push, ONCE, 1 dose, On 05/28/21 at 0100, RO[facility] famotidine 20 mg tablet 2020-07 00:00: 00 06-13 05:59 :00 No [id number] 20mg Take 1 tablet by mouth 2 (two) times daily for 15 days. [facility] escitalopra m oxalate (LEXAPRO) tablet 10 mg 2020-07 0 02:00: 00 Yes 10mg 10 mg, Oral, QHS, First dose on 04/08/21 at 2100, Until Discontinu ed, Routine [facility] aspirin 81 mg chewable tablet 2020-07 0 00:00: 00 2021- 11-03 04:59 :00 No [id number] 81mg Take 1 tablet by mouth daily for 30 days. [facility] traZODone (DESYREL) tablet 200 mg 2020-07 22:00: 00 Yes 200mg 200 mg, Oral, QPM, First dose on 04/08/21 at 1700, Until Discontinu ed [facility] topiramate (TOPAMAX) tablet 200 mg 2020-07 22:00: 00 Yes 200mg 200 mg, Oral, QPM, First dose on 04/08/21 at 1700, Until Discontinu ed, Routine
economics faculty member approving Restricted medication : ALEXEY ALEGRE [facility] OLANZapine (ZyPREXA) tablet 15 mg 2020-07 22:00: 00 Yes 15mg 15 mg, Oral, QPM, First dose on 04/08/21 at 1700, Until Discontinu ed, Routine [facility] melatonin (MELATIN) tablet 9 mg 2020-07 22:00: 00 Yes 9mg 9 mg, Oral, QPM, First dose on 04/08/21 at 1700, Until Discontinu ed [facility] methocarbam oL 750 mg tablet 2020-07 17:45: 33 Yes 750mg Take 750 mg by mouth 3 (three) times daily. [facility] [place]-3-DHA -EPA-Fish Oil (FISH OIL) 1,000 mg (120 mg-180 mg) Cap 2020-07 17:45: 33 Yes 1000mg Take 1,000 mg by mouth daily. [facility] hydrOXYzine (VISTARIL) 50 mg capsule 2020-07 17:45: 33 Yes 50mg Take 50 mg by mouth every 4 (four) hours as needed for Itching. q 4-6 hours as needed [facility] losartan 50 mg tablet 2020-07 17:45: 33 Yes 50mg Take 50 mg by mouth daily. [facility] trazodone HCl (DESYREL ORAL) 2020-07 17:45: 33 Yes 200mg Take 200 mg by mouth every evening. [facility] escitalopra m oxalate (LEXAPRO) 5 mg tablet 2020-07 17:45: 33 Yes 10mg Take 10 mg by mouth at bedtime. [facility] Melatonin 1 mg tablet 2020-07 17:45: 33 Yes 10mg Take 10 mg by mouth every evening. [facility] topiramate (TOPAMAX) 200 mg tablet 2020-07 17:45: 33 Yes 200mg Take 200 mg by mouth every evening. [facility] bupropion HCl (WELLBUTRIN ORAL) 2020-07 17:45: 33 Yes 150mg Take 150 mg by mouth every morning. [facility] OLANZapine (ZYPREXA) 15 mg tablet 2020-07 17:45: 33 Yes 15mg Take 15 mg by mouth every evening. [facility] OLANZapine (ZYPREXA) 2.5 mg tablet 2020-07 17:45: 33 Yes 2.5mg Take 2.5 mg by mouth 2 (two) times daily. [facility] furosemide (LASIX) injection 20 mg 2020-07 14:30: 00 Yes 20mg 20 mg, Slow IV Push, Q12H, First dose on 04/08/21 at 0930, Until Discontinu ed, Routine [facility] losartan (COZAAR) tablet 50 mg 2020-07 14:00: 00 Yes 50mg 50 mg, Oral, DAILY, First dose on 04/08/21 at 0900, Until Discontinu ed, Routine [facility] buPROPion XL (WELLBUTRIN XL) tablet 150 mg 2020-07 14:00: 00 Yes 150mg 150 mg, Oral, DAILY, First dose on 04/08/21 at 0900, Until Discontinu ed [facility] aspirin chewable tablet 81 mg 2020-07 14:00: 00 Yes 81mg 81 mg, Oral, DAILY, First dose on 04/08/21 at 0900, Until Discontinu ed, Routine [facility] enoxaparin (LOVENOX) injection 40 mg 2020-07 14:00: 00 Yes 40mg 40 mg, Subcutaneo us, DAILY, First dose on Sat04/08/21 at 0900, Until Discontinu ed, Routine [facility] OLANZapine (ZyPREXA) tablet 2.5 mg 2020-07 13:00: 00 Yes 2.5mg 2.5 mg, Oral, BID, First dose on Sat04/08/21 at 0800, Until Discontinu ed, Routine [facility] methocarbam oL (ROBAXIN) tablet 750 mg 2020-07 13:00: 00 Yes 750mg 750 mg, Oral, TID, First dose on Sat04/08/21 at 0800, Until Discontinu ed, Routine [facility] LORazepam (ATIVAN) injection 0.5 mg 2020-07 04:07: 43 Yes .5mg 0.5 mg, Slow IV Push, PRN, 2 doses, Starting on Sat04/07/21 at 2307, Until Discontinu ed, Routine, Anxiety [facility] hydrOXYzine (ATARAX) tablet 50 mg 2020-07 02:51: 23 Yes 50mg 50 mg, Oral, Q4HPRN, Starting on Sat04/07/21 at 2151, Until Discontinu ed, Itching [facility] LORazepam (ATIVAN) tablet 0.5 mg 2020-07 02:05: 29 Yes .5mg 0.5 mg, Oral, PRN, 2 doses, Starting on Sat04/07/21 at 2105, Until Discontinu ed, Routine, Anxiety [facility] morpHINE injection 4 mg 2020-07 00:00: 00 04-07 22:58 :00 No 4mg 4 mg, Slow IV Push, ONCE, 1 dose, On Sat04/07/21 at 1900, STAT [facility] ondansetron (ZOFRAN (PF)) injection 4 mg 2020-07 00:00: 00 04-07 22:56 :00 No 4mg 4 mg, Slow IV Push, ONCE, 1 dose, On Sat04/07/21 at 1900, RO[facility]N [facility] morpHINE injection 4 mg 2020-07 23:58: 03 04-08 23:57 :03 No 4mg 4 mg, Slow IV Push, Q4HPRN, Starting on Sat04/07/21 at 1858, Until 04/08/21 at 1857, Routine, Pain (scale 7-10) [facility] HYDROcodone -acetaminop hen (NORCO 5) 5-325 mg tablet 1 tablet 2020-07 23:58: 00 04-09 23:57 :00 No 1{tbl} 1 tablet, Oral, Q6HPRN, Starting on Sat04/07/21 at 1858, Until Sat04/09/21 at 1857, Routine, Pain (scale 4-6) [facility] acetaminoph en (TYLENOL) tablet 650 mg 2020-07 23:57: 57 Yes 650mg 650 mg, Oral, Q6HPRN, Starting on Sat04/07/21 at 1857, Until Discontinu ed, Routine, Pain (scale 1-3) [facility] aspirin tablet 325 mg 2020-07 23:00: 00 04-07 21:56 :00 No 325mg 325 mg, Oral, ONCE, 1 dose, On Sat04/07/21 at 1800, STAT [facility] nitroglycer in (NITROSTAT) sublingual tablet 0.4 mg 2020-07 21:51: 01 04-07 22:46 :00 No .4mg 0.4 mg, Sublingual , Q5MIN PRN, 3 doses, Starting on Sat04/07/21 at 1651, Until Discontinu ed, ROSELYN, Chest pain [facility] fluconazole (DIFLUCAN) tablet 150 mg 01-12 14:00: 00 Yes 150mg 150 mg, Oral, DAILY, First dose on [place] 01/12/21 at 0900, Until Discontinu ed, RO[facility]N
Re ason for Anti-Infec tive: Empiric Therapy for Suspected Infection< br>Empiric Therapy Site: HEENT
D uration of therapy: 72 hours [facility] cefTRIAXone (ROCEPHIN) 1,000 mg in NaCl 0.9% (NS) 50 mL MINI-BAG 01-12 10:15: 00 01-12 09:49 :00 No 1000mg 1,000 mg, IV Piggyback, ONCE, 1 dose, [place] 01/12/21 at 0515, 50 mL
Reas on for Anti-Infec tive: Empiric Therapy for Suspected Infection< br>Empiric Therapy Site: Urine
D uration of therapy: 72 hours [facility] hydrOXYzine (ATARAX) tablet 25 mg 01-12 10:15: 00 01-12 09:18 :00 No 25mg 25 mg, Oral, ONCE, 1 dose, [place] 01/12/21 at 0515, RO[facility]N [facility] HYDROcodone -acetaminop hen (NORCO) 10-325 mg tablet 1 tablet 01-12 10:15: 00 01-12 09:18 :00 No 1{tbl} 1 tablet, Oral, ONCE, 1 dose, [place] 01/12/21 at 0515, Routine [facility] maalox:diph enhydrAMINE :lidocaine2 %viscous 1:1:1: suspension (COMPOUNDED ) 01-12 09:30: 00 01-12 08:25 :00 No 15mL 15 mL, Oral, ONCE, 1 dose, [place] 01/12/21 at 0430, Routine [facility] cephALEXin (KEFLEX) 500 mg capsule 01-12 00:00: 00 04-07 00:00 :00 No [id number] 500mg Take 1 capsule by mouth 3 (three) times daily. [facility] HYDROcodone -acetaminop hen (NORCO 5) 5-325 mg tablet 1 tablet 12-11 02:00: 00 12-11 01:29 :00 No 1{tbl} 1 tablet, Oral, ONCE, 1 dose, 12/10/20 at 2100, [facility] LORazepam (ATIVAN) injection 1 mg 12-11 00:30: 00 12-10 23:36 :00 No 1mg 1 mg, Slow IV Push, ONCE, 1 dose, 12/10/20 at 1930, STAT [facility] ketorolac (TORADOL) injection 30 mg 12-11 00:30: 00 12-10 23:36 :00 No 30mg 30 mg, Slow IV Push, ONCE, 1 dose, 12/10/20 at 1930, ROSE[facility]N
Fa culty member approving Restricted medication : EMERGENCY ROOM, [facility] ondansetron (ZOFRAN (PF)) injection 4 mg 12-10 23:45: 00 12-10 22:46 :00 No 4mg 4 mg, Slow IV Push, ONCE, 1 dose[facility] 1845[facility] 0.9% (NS) bolus infusion 2,000 mL 12-10 22:45: 00 12-11 01:29 :00 No 2000mL at 999 mL/hr, 2,000 mL, IV Infusion, ONCE, 1 dose, 12/10/20 at 1745, [facility] proMETHazin e 25 mg tablet 12-10 00:00: 00 04-07 00:00 :00 No [id number] 12.5mg Take 0.5 tablets by mouth every 6 (six) hours as needed for N/V unresponsi ve to Ondansetro n. [facility] morpHINE injection 4 mg 12-04 22:30: 00 12-04 21:37 :00 No 4mg 4 mg, Slow IV Push, ONCE, 1 dose, 12/04/20 at 1730, STAT [facility] losartan 50 mg tablet 12-04 22:03: 53 Yes 50mg Take 50 mg by mouth daily. [facility] LORazepam (ATIVAN) tablet 1 mg 12-04 21:45: 00 12-04 20:44 :00 No 1mg 1 mg, Oral, ONCE, 1 dose, 12/04/20 at 1645, RO[facility] ondansetron (ZOFRAN (PF)) injection 4 mg 12-04 21:15: 00 12-04 20:22 :00 No 4mg 4 mg, Slow IV Push, ONCE, 1 dose, [place] 12/04/20 at 1615, RO[facility] morpHINE injection 4 mg 12-04 21:15: 00 12-04 20:21 :00 No 4mg 4 mg, Slow IV Push, ONCE, 1 dose, [place] 12/04/20 at 1615, STAT [facility] ALPRAZolam (XANAX) 2 mg tablet 11-04 04:24: 19 11-03 00:00 :00 No 2mg Take 2 mg by mouth at bedtime. [facility] LORazepam (ATIVAN) injection 1 mg 11-04 04:00: 00 11-04 02:57 :00 No 1mg 1 mg, Slow IV Push, ONCE, 1 dose, [facility] 11/03/20 at 2300, STAT [facility] LORazepam (ATIVAN) tablet 1 mg 11-04 04:00: 00 11-04 02:57 :00 No 1mg 1 mg, Oral, ONCE, 1 dose, [facility] 11/03/20 at 2300, [facility] clonazePAM 0.5 mg tablet 11-01 00:00: 00 04-07 00:00 :00 No .5mg Take 0.5 mg by mouth. [facility] SERTraline 100 mg tablet 11-01 00:00: 00 04-07 00:00 :00 No 100mg Take 100 mg by mouth. [facility] busPIRone 10 mg tablet 10-18 00:00: 00 04-07 00:00 :00 No 10mg Take 10 mg by mouth. [facility] Ciprofloxac in/Dexameth asone (Ciprodex 0.3%-0.1% Otic*) 1 Ea SUSP Ciprofloxac in/Dexameth asone (Ciprodex 0.3%-0.1% Otic*) 1 Ea SUSP 09-19 13:53: 00 09-30 00:00 :00 No [facility] 800 mg 09-17 16:55: 00 09-17 16:57 :00 No 800mg 800 mg, Oral, ONCE, 1 dose, 09/17/20 at 1100, RO[facility] benzonatate 100 mg capsule 09-17 00:00: 00 04-07 00:00 :00 No [id number] 100mg Take 1 capsule by mouth 3 (three) times daily as needed for Cough. [facility] amoxicillin 500 mg capsule 09-17 00:00: 00 09-28 04:59 :00 No [id number] 500mg Take 1 capsule by mouth 3 (three) times daily for 10 days. [facility] HYDROcodone -acetaminop hen (NORCO) 10-325 mg tablet 1 tablet 09-07 07:45: 00 09-07 07:09 :00 No 1{tbl} 1 tablet, Oral, ONCE, 1 dose, 09/07/20 at 0145, Routine [facility] ondansetron (ZOFRAN-ODT ) disintegrat ing tablet 4 mg 09-07 07:15: 00 09-07 07:15 :00 No 4mg 4 mg, Oral, ONCE, 1 dose, 09/07/20 at 0130, Routine [facility] ibuprofen 800 mg tablet 09-07 00:00: 00 Yes [id number] 800mg Take 1 tablet by mouth every 8 (eight) hours as needed for Pain (scale 4-6). [facility] ketorolac (TORADOL) injection 30 mg 08-28 10:45: 00 08-28 09:48 :00 No 30mg 30 mg, Slow IV Push, ONCE, 1 dose, 08/28/20 at 0445, Routine
economics faculty member approving Restricted medication : OLIVIA GARCIA [facility] ondansetron (ZOFRAN (PF)) injection 4 mg 08-28 10:00: 00 08-28 09:06 :00 No 4mg 4 mg, Slow IV Push, ONCE, 1 dose, 08/28/20 at 0400, [facility] FENTanyl PF (SUBLIMAZE (PF)) injection 50 mcg 08-28 10:00: 00 08-28 09:07 :00 No 50ug 50 mcg, Slow IV Push, ONCE, 1 dose, 08/28/20 at 0400, Routine [facility] maalox:diph enhydrAMINE :lidocaine 2 % viscous 1:1:1 ([facility]) oral suspension 15 mL 08-28 10:00: 00 08-28 09:07 :00 No 15mL 15 mL, Oral, ONCE, 1 dose, 08/28/20 at 0400, Routine [facility] iohexol (OMNIPAQUE 350 BULK-100 mL) injection 120 mL 08-28 09:30: 00 08-28 09:11 :00 No 120mL 120 mL, Intravenou s, ONCE, 1 dose, 08/28/20 at 0330, Routine [facility] dicyclomine 20 mg tablet 08-28 00:00: 00 04-07 00:00 :00 No [id number] 20mg Take 1 tablet by mouth every 6 (six) hours as needed for Abdominal pain. [facility] ondansetron (ZOFRAN) 4 mg tablet 08-28 00:00: 00 09-17 00:00 :00 No [id number] 4mg Take 1 tablet by mouth every 8 (eight) hours as needed for Nausea and Vomiting (N/V). [facility] FENTanyl PF (SUBLIMAZE (PF)) injection 25 mcg 08-14 19:00: 00 08-14 18:09 :00 No 25ug 25 mcg, Slow IV Push, ONCE, 1 dose, 08/14/20 at 1300, STAT [facility] ondansetron (ZOFRAN (PF)) injection 4 mg 08-14 19:00: 00 08-14 18:10 :00 No 4mg 4 mg, Slow IV Push, ONCE, 1 dose, 08/14/20 at 1300, [facility] ketorolac (TORADOL) injection 15 mg 08-14 19:00: 00 08-14 18:09 :00 No 15mg 15 mg, Slow IV Push, ONCE, 1 dose, 08/14/20 at 1300, [facility]
Fa culty member approving Restricted medication : BEST TAYLOR [facility] piperacilli n-tazobacta m (ZOSYN) 3.375 g in NaCl 0.9% (NS) 100 mL MINI-BAG 08-14 19:00: 00 08-14 18:38 :00 No 3.375g 3.375 g, IV Piggyback, ONCE, 1 dose, 08/14/20 at 1300, 100 mL
Reas on for Anti-Infec tive: Documented Infection< br>Documen kaushik Infection Site: Urine
D uration of Therapy: Other (see Comments) [facility] NaCl 0.9% (NS) bolus infusion 1,000 mL 08-14 19:00: 00 08-14 19:00 :00 No 1000mL at 999 mL/hr, 1,000 mL, IV Infusion, ONCE, 1 dose, 08/14/20 at 1300, STAT [facility] guaiFENesin 100 mg/5 mL solution 08-14 00:00: 00 04-07 00:00 :00 No [id number] 100mg Take 5 mL by mouth every 4 (four) hours. [facility] ondansetron 4 mg disintegrat ing tablet 08-14 00:00: 00 09-17 00:00 :00 No [id number] 4mg Take 1 tablet by mouth every 8 (eight) hours as needed for Nausea and Vomiting (N/V). [facility] ibuprofen 600 mg tablet 08-14 00:00: 00 09-17 00:00 :00 No [id number] 600mg Take 1 tablet by mouth every 6 (six) hours as needed for Pain (scale 4-6). [facility] amoxicillin -clavulanat e 875-125 mg per tablet 08-14 00:00: 00 08-25 05:59 :00 No [id number] 1{tbl} Take 1 tablet by mouth 2 (two) times daily for 10 days. [facility] fluconazole (DIFLUCAN) tablet 150 mg 08-11 15:00: 00 Yes 150mg 150 mg, Oral, DAILY, First dose on [place] 08/11/20 at 0900, Until Discontinu ed, RO[facility]N
Re ason for Anti-Infec tive: Documented Infection< br>Documen kaushik Infection Site: Urine
D uration of Therapy: Other (see Comments) [facility] HYDROcodone -acetaminop hen (NORCO) 10-325 mg tablet 1 tablet 08-11 05:30: 00 08-11 05:08 :00 No 1{tbl} 1 tablet, Oral, ONCE NOW, 1 dose, Sat08/10/20 at 2330, Routine [facility] FENTanyl PF (SUBLIMAZE (PF)) injection 25 mcg 08-11 04:30: 00 08-11 03:19 :00 No 25ug 25 mcg, Slow IV Push, ONCE, 1 dose, Sat08/10/20 at 2230, STAT [facility] ondansetron (ZOFRAN (PF)) injection 4 mg 08-11 04:15: 00 08-11 03:19 :00 No 4mg 4 mg, Slow IV Push, ONCE, 1 dose, Sat08/10/20 at 2215, RO[facility] NaCl 0.9% (NS) bolus infusion 1,000 mL 2- 01:45: 00 08-11 03:45 :00 No 1000mL at 999 mL/hr, 1,000 mL, IV Infusion, ONCE, 1 dose, 08/10/20 at 1945, STAT [facility] ketorolac (TORADOL) injection 30 mg 08-11 01:45: 00 08-11 02:31 :00 No 30mg 30 mg, Slow IV Push, ONCE, 1 dose, 08/10/20 at 1945, ROSE[facility]N
Fa culty member approving Restricted medication : BEST TAYLOR [facility] traMADoL (ULTRAM) 50 mg tablet 08-10 00:00: 00 09-17 00:00 :00 No [id number] 50mg Take 1 tablet by mouth every 6 (six) hours as needed for Pain (scale 7-10). Indication s: acute pain [facility] ibuprofen 800 mg tablet 08-07 00:00: 00 09-17 00:00 :00 No [id number] 800mg Take 1 tablet by mouth every 8 (eight) hours. [facility] amoxicillin 500 mg capsule 08-07 00:00: 00 09-17 00:00 :00 No [id number] 500mg Take 1 capsule by mouth 3 (three) times daily. [facility] traMADoL 50 mg tablet 08-07 00:00: 00 09-17 00:00 :00 No [id number] 50mg Take 1 tablet by mouth every 6 (six) hours as needed for Pain (scale 4-6). Indication s: acute pain [facility] LORazepam (ATIVAN) tablet 1 mg 2019-07 03:15: 00 07-01 02:21 :00 No 1mg 1 mg, Oral, ONCE, 1 dose, [place] 06/30/20 at 2115, [place] [facility] FENTanyl PF (SUBLIMAZE (PF)) injection 50 mcg 2019-07 02:30: 00 07-01 01:39 :00 No 50ug 50 mcg, Slow IV Push, ONCE, 1 dose, [place] 06/30/20 at 2030, Routine [facility] ondansetron (ZOFRAN-ODT ) disintegrat ing tablet 4 mg 2019-07 01:15: 07-01 00:52 :00 No 4mg 4 mg, Oral, ONCE, 1 dose, [facility] 06/30/20 at 1915, Routine [facility] ketorolac (TORADOL) injection 30 mg 2019-07 01:15: 07-01 00:52 :00 No 30mg 30 mg, Slow IV Push, ONCE, 1 dose, [facility] 06/30/20 at 1915, ROSE[facility]N
Fa culty member approving Restricted medication : ABDIAS ROBERTSON [facility] albuterol 90 mcg/actuati on inhaler 2019-07 00:00: 04-07 00:00 :00 No [id number] 2{puff} Inhale 2 Puffs every 4 (four) hours as needed for Wheezing or Shortness of Breath. [facility] hydrOXYzine 25 mg tablet 2019-07 00:00: 09-17 00:00 :00 No [id number] 25mg Take 1 tablet by mouth every 6 (six) hours as needed for Anxiety. [facility] naproxen sodium (ANAPROX DS) 550 mg tablet 2019-07 00:00: 00 04-07 00:00 :00 No [id number] 550mg Take 1 tablet by mouth 2 (two) times daily with meals. [facility] methylPREDN ISolone (MEDROL, BEBETO,) 4 mg tablets 2019-07 00:00: 09-17 00:00 :00 No [id number] Take by mouth SEE-INSTRU CTIONS. follow package directions [facility] methocarbam oL 500 mg tablet 2019-07 00:00: 07-04 05:59 :00 No [id number] 500mg Take 1 tablet by mouth 3 (three) times daily for 5 days. [facility] proMETHazin e (PHENERGAN) tablet 25 mg 2019-07 04:45: 00 06-13 03:37 :00 No 25mg 25 mg, Oral, ONCE, 1 dose, [place] [facility]20 [facility] 2245[facility] (ZOFR[facility] (PF)) [facility] 4 mg 2019-07 03:00: 00 06-13 01:59 :00 No 4mg 4 mg, Slow IV Push, ONCE, 1 dose, 06/12/20 at 2100, [facility] ketorolac (TORADOL) injection 15 mg 2019-07 03:00: 00 06-13 01:58 :00 No 15mg 15 mg, Intramuscu lar, ONCE, 1 dose, 06/12/20 at 2100, [facility]
Fa culty member approving Restricted medication : LEEANNE WISE [facility] morpHINE injection 4 mg 2019-07 01:30: 00 06-13 00:41 :00 No 4mg 4 mg, Slow IV Push, ONCE, 1 dose, 06/12/20 at 1930, STAT [facility] ondansetron (ZOFRAN (PF)) injection 4 mg 2019-07 00:45: 00 06-13 00:41 :00 No 4mg 4 mg, Slow IV Push, ONCE, 1 dose, 06/12/20 at 1845, [facility] NaCl 0.9% (NS) bolus infusion 1,000 mL 2019-07 23:45: 00 06-13 03:54 :00 No 1000mL at 999 mL/hr, 1,000 mL, IV Infusion, ONCE, 1 dose, 06/12/20 at 1745, [facility] dicyclomine 20 mg tablet 2019-07 00:00: 00 04-07 00:00 :00 No [id number] 20mg Take 1 tablet by mouth 4 (four) times daily as needed for Abdominal pain. [facility] proMETHazin e 25 mg tablet 2019-07 00:00: 00 09-17 00:00 :00 No [id number] 25mg Take 1 tablet by mouth every 6 (six) hours as needed for Nausea and Vomiting (N/V). [facility] famotidine 20 mg tablet 2019-07 00:00: 00 06-27 05:59 :00 No [id number] 20mg Take 1 tablet by mouth at bedtime for 14 days. [facility] haloperidol lactate (HALDOL) injection 2.5 mg 2019-07 01:00: 00 05-16 23:51 :00 No 2.5mg 2.5 mg, Intravenou s, ONCE, 1 dose, 05/16/20 at 1900, STAT [facility] NaCl 0.9% (NS) bolus infusion 1,000 mL 2019-07 23:45: 00 05-17 00:54 :00 No 1000mL at 999 mL/hr, 1,000 mL, IV Infusion, ONCE, 1 dose, [facility] 05[facility]16[facility]20 [facility] 1745[facility] (PH[facility]GAN) 25 mg suppository 2019-07 00:00: 00 Yes [id number] 25mg Insert 1 Suppositor y into rectum every 4 (four) hours as needed for Nausea and Vomiting (N/V). [facility] ondansetron (ZOFRAN (PF)) injection 4 mg 2019-07 07:30: 00 05-15 06:26 :00 No 4mg 4 mg, Slow IV Push, ONCE, 1 dose, 05/15/20 at 0130, [facility] iohexol (OMNIPAQUE 350 BULK-100 mL) injection 120 mL 2019-07 07:00: 00 05-15 06:52 :00 No 120mL 120 mL, Intravenou s, ONCE, 1 dose, 05/15/20 at 0100, Routine [facility] ondansetron (ZOFRAN (PF)) injection 4 mg 2019-07 06:30: 00 05-15 05:52 :00 No 4mg 4 mg, Slow IV Push, ONCE, 1 dose, 05/15/20 at 0030, [facility] ALPRAZolam (XANAX) 2 mg tablet 2019-07 05:30: 59 Yes 2mg Take 2 mg by mouth at bedtime. [facility] zolpidem 5 mg tablet 2019-0 6-15 00:00: 00 04-07 00:00 :00 No 5mg Take 5 mg by mouth. [facility] Immunizations Ordered Immunization Name Filled [...] (Spikevax), Mrna-lnp, Zackery Protein, Pf Unknown [facility] Vital Signs Vital Name Observation Time Observation Value Comments S floramargot Systolic blood pressure 2024-10-13 07:35:00 135 mm[Hg] [facility] Diastolic blood pressure 2024-10-13 07:35:00 87 mm[Hg] [facility] Heart rate 2024-10-13 07:35:00 86 /min [facility] Body temperature 2024-10-13 07:35:00 36.72 Latanya [facility] Respiratory rate 2024-10-13 07:35:00 19 /min [facility] Oxygen saturation in Arterial blood by Pulse oximetry 2024-10-13 07:35:00 98 /min [facility] Body height 2024-10-13 03:27:00 157.5 cm [facility] Body weight 2024-10-13 03:27:00 104.327 kg [facility] BMI 2024-10-13 03:27:00 42.07 kg/m2 [facility] Body temperature 2024-07-19 07:17:00 36.56 Latanya [facility] Heart rate 2024-07-19 07:14:00 74 /min [facility] Respiratory rate 2024-07-19 07:14:00 27 /min [facility] Oxygen saturation in Arterial blood by Pulse oximetry 2024-07-19 07:14:00 100 /min [facility] Systolic blood pressure 2024-07-19 07:00:00 123 mm[Hg] [facility] Diastolic blood pressure 2024-07-19 07:00:00 93 mm[Hg] [facility] Body height 2024-07-19 04:44:00 157.5 cm [facility] Body weight 2024-07-19 04:44:00 104.327 kg [facility] BMI 2024-07-19 04:44:00 42.07 kg/m2 [facility] Systolic blood pressure 2024-07-04 07:00:00 132 mm[Hg] [facility] Diastolic blood pressure 2024-07-04 07:00:00 98 mm[Hg] [facility] Heart rate 2024-07-04 07:00:00 85 /min [facility] Body temperature 2024-07-04 07:00:00 36.78 Latanya [facility] Respiratory rate 2024-07-04 07:00:00 18 /min [facility] Oxygen saturation in Arterial blood by Pulse oximetry 2024-07-04 07:00:00 94 /min [facility] Body height 2024-07-04 01:53:00 157.5 cm [facility] Body weight 2024-07-04 01:53:00 105.688 kg [facility] BMI 2024-07-04 01:53:00 42.62 kg/m2 [facility] Systolic blood pressure 2024-06-21 08:00:00 180 mm[Hg] [facility] Diastolic blood pressure 2024-06-21 08:00:00 107 mm[Hg] [facility] Heart rate 2024-06-21 08:00:00 89 /min [facility] Body temperature 2024-06-21 08:00:00 37.11 Latanya [facility] Respiratory rate 2024-06-21 08:00:00 22 /min [facility] Body height 2024-06-21 08:00:00 157.5 cm [facility] Body weight 2024-06-21 08:00:00 108.41 kg [facility] BMI 2024-06-21 08:00:00 43.71 kg/m2 [facility] Oxygen saturation in Arterial blood by Pulse oximetry 2024-06-21 08:00:00 100 /min [facility] Heart rate 2024-06-15 06:22:00 87 /min [facility] Body temperature 2024-06-15 06:22:00 37.11 Latanya [facility] Oxygen saturation in Arterial blood by Pulse oximetry 2024-06-15 06:22:00 96 /min [facility] Systolic blood pressure 2024-06-15 06:00:00 137 mm[Hg] [facility] Diastolic blood pressure 2024-06-15 06:00:00 85 mm[Hg] [facility] Respiratory rate 2024-06-15 06:00:00 15 /min [facility] Body height 2024-06-15 03:23:00 157.5 cm [facility] Body weight 2024-06-15 03:23:00 109.997 kg [facility] BMI 2024-06-15 03:23:00 44.35 kg/m2 [facility] Body temperature 2024-06-07 08:35:48 36.89 Latanya [facility] Systolic blood pressure 2024-06-07 08:00:00 129 mm[Hg] [facility] Diastolic blood pressure 2024-06-07 08:00:00 108 mm[Hg] [facility] Heart rate 2024-06-07 08:00:00 69 /min [facility] Respiratory rate 2024-06-07 08:00:00 24 /min [facility] Oxygen saturation in Arterial blood by Pulse oximetry 2024-06-07 08:00:00 97 /min [facility] Body height 2024-06-07 04:02:00 157.5 cm [facility] Body weight 2024-06-07 04:02:00 105.688 kg [facility] BMI 2024-06-07 04:02:00 42.62 kg/m2 [facility] Systolic blood pressure 2024-05-19 19:32:00 130 mm[Hg] [facility] Diastolic blood pressure 2024-05-19 19:32:00 74 mm[Hg] [facility] Heart rate 2024-05-19 19:32:00 84 /min [facility] Respiratory rate 2024-05-19 19:32:00 18 /min [facility] Oxygen saturation in Arterial blood by Pulse oximetry 2024-05-19 19:32:00 99 /min [facility] Body temperature 2024-05-19 17:44:00 36.83 Latanya [facility] Body height 2024-05-19 17:44:00 157.5 cm [facility] Body weight 2024-05-19 17:44:00 108.863 kg [facility] BMI 2024-05-19 17:44:00 43.90 kg/m2 [facility] Systolic blood pressure 2024-05-18 16:21:00 126 mm[Hg] [...] [facility] Body temperature 2024-05-18 04:14:00 37 Latanya [facility] Respiratory rate 2024-05-18 04:14:00 27 /min [facility] Oxygen saturation in Arterial blood by Pulse oximetry 2024-05-18 04:14:00 94 /min [facility] Systolic blood pressure 2024-05-18 04:00:00 141 mm[Hg] [facility] Diastolic blood pressure 2024-05-18 04:00:00 122 mm[Hg] [facility] Body height 2024-05-18 00:33:00 157.5 cm [facility] Body weight 2024-05-18 00:33:00 107.502 kg [facility] BMI 2024-05-18 00:33:00 43.35 kg/m2 [facility] Heart rate 2024-05-08 02:05:00 91 /min [facility] Respiratory rate 2024-05-08 02:05:00 22 /min [facility] Oxygen saturation in Arterial blood by Pulse oximetry 2024-05-08 02:05:00 95 /min [facility] Systolic blood pressure 2024-05-08 02:00:00 140 mm[Hg] [facility] Diastolic blood pressure 2024-05-08 02:00:00 86 mm[Hg] [facility] Body temperature 2024-05-07 23:46:00 36.78 Latanya [facility] Body height 2024-05-07 23:46:00 157.5 cm [facility] Body weight 2024-05-07 23:46:00 107.729 kg [facility] BMI 2024-05-07 23:46:00 43.44 kg/m2 [facility] Height 2024-04-10 16:28:00 [id number] cm [facility] Weight 2024-04-10 16:28:00 104.962228 kg [facility] BMI (Body Mass Index) 2024-04-10 16:28:00 42.1 kg/m2 [facility] Systolic blood pressure 2024-04-09 01:30:00 134 mm[Hg] [facility] Diastolic blood pressure 2024-04-09 01:30:00 64 mm[Hg] [facility] Heart rate 2024-04-09 01:30:00 102 /min [facility] Body temperature 2024-04-09 01:30:00 36.61 Latanya [facility] Respiratory rate 2024-04-09 01:30:00 17 /min [facility] Oxygen saturation in Arterial blood by Pulse oximetry 2024-04-09 01:30:00 96 /min [facility] Body height 2024-04-08 22:31:00 157.5 cm [facility] Body weight 2024-04-08 22:31:00 104.327 kg [facility] BMI 2024-04-08 22:31:00 42.07 kg/m2 [facility] Body temperature 2023-12-13 14:10:00 36.72 Latanya [facility] Respiratory rate 2023-12-13 14:10:00 15 /min [facility] - External Body height 2023-12-13 14:10:00 157.5 cm [facility] - External Body weight 2023-12-13 14:10:00 105.688 kg [facility]ellee Ariasybbeck - External BMI 2023-12-13 14:10:00 42.62 kg/m2 [...] Body temperature 2023-12-03 15:44:00 37 Latanya [facility]ellee Ariasybold - External Respiratory rate 2023-12-03 15:44:00 15 /min [facility] Ariasybold - External Body height 2023-12-03 15:44:00 157.5 cm [facility] Buck[facility] - External Body weight 2023-12-03 15:44:00 104.781 kg [facility] Ariasybold - External BMI 2023-12-03 15:44:00 42.25 kg/m2 [facility] Seybold - External Systolic blood pressure 2023-10-29 18:12:00 132 mm[Hg] [facility] Sey[facility] - External Diastolic blood pressure 2023-10-29 18:12:00 84 mm[Hg] [facility] Sey[facility] - External Heart rate 2023-10-29 18:12:00 82 /min [facility] Ariasybold - External Body temperature 2023-10-29 18:12:00 36.72 Latanya Kellee Ariasybold - External Respiratory rate 2023-10-29 18:12:00 18 /min [facility] Ariasybold - External Body height 2023-10-29 18:12:00 157.5 cm [facility] Buckley - External Body weight 2023-10-29 18:12:00 106.142 kg Kellee Seybold - External BMI 2023-10-29 18:12:00 42.80 kg/m2 Kellee Floresold - External Oxygen saturation in Arterial blood by Pulse oximetry 2023-10-29 18:12:00 97 /min Kellee Seybold - External Systolic blood pressure 2023-10-11 05:00:00 126 mm[Hg] [facility] Diastolic blood pressure 2023-10-11 05:00:00 87 mm[Hg] [facility] Heart rate 2023-10-11 05:00:00 94 /min [facility] Respiratory rate 2023-10-11 05:00:00 22 /min [facility] Oxygen saturation in Arterial blood by Pulse oximetry 2023-10-11 05:00:00 98 /min [facility] Body temperature 2023-10-11 02:28:00 37.22 Latanya [facility] Body height 2023-10-11 02:28:00 157.5 cm [facility] Body weight 2023-10-11 02:28:00 99.791 kg [facility] BMI 2023-10-11 02:28:00 40.24 kg/m2 [facility] Systolic blood pressure 2023-07-02 04:10:00 147 mm[Hg] [facility] Diastolic blood pressure 2023-07-02 04:10:00 89 mm[Hg] [facility] Heart rate 2023-07-02 04:10:00 73 /min [facility] Respiratory rate 2023-07-02 04:10:00 19 /min [facility] Oxygen saturation in Arterial blood by Pulse oximetry 2023-07-02 04:10:00 98 /min [facility] Body temperature 2023-07-02 01:47:00 36.78 Latanya [facility] Body height 2023-07-02 01:47:00 160 cm [facility] Body weight 2023-07-02 01:47:00 97.659 kg [facility] BMI 2023-07-02 01:47:00 38.14 kg/m2 [facility] Systolic blood pressure 2023-05-10 01:00:00 133 mm[Hg] [facility] Diastolic blood pressure 2023-05-10 01:00:00 81 mm[Hg] [facility] Heart rate 2023-05-10 01:00:00 64 /min [facility] Respiratory rate 2023-05-10 01:00:00 21 /min [facility] Oxygen saturation in Arterial blood by Pulse oximetry 2023-05-10 01:00:00 96 /min [facility] Body temperature 2023-05-09 22:43:00 36.67 Latanya [facility] Body height 2023-05-09 22:43:00 157.5 cm [facility] Body weight 2023-05-09 22:43:00 99.791 kg [facility] BMI 2023-05-09 22:43:00 40.24 kg/m2 [facility] Systolic blood pressure 2023-05-01 01:00:00 107 mm[Hg] [facility] Diastolic blood pressure 2023-05-01 01:00:00 80 mm[Hg] [facility] Heart rate 2023-05-01 01:00:00 80 /min [facility] Body temperature 2023-05-01 01:00:00 37.06 Latanya [facility] Respiratory rate 2023-05-01 01:00:00 16 /min [facility] Oxygen saturation in Arterial blood by Pulse oximetry 2023-05-01 01:00:00 98 /min [facility] Body height 2023-04-30 22:16:00 157.5 cm [facility] Body weight 2023-04-30 22:16:00 95.255 kg [facility] BMI 2023-04-30 22:16:00 38.41 kg/m2 [facility] Systolic blood pressure 2023-04-17 02:00:00 147 mm[Hg] [facility] Diastolic blood pressure 2023-04-17 02:00:00 83 mm[Hg] [facility] Heart rate 2023-04-17 02:00:00 90 /min [facility] Respiratory rate 2023-04-17 02:00:00 18 /min [facility] Oxygen saturation in Arterial blood by Pulse oximetry 2023-04-17 02:00:00 96 /min [facility] Body temperature 2023-04-17 01:33:00 36.78 Latanya [facility] Body height 2023-04-17 01:33:00 157.5 cm [facility] Body weight 2023-04-17 01:33:00 99.791 kg [facility] BMI 2023-04-17 01:33:00 40.24 kg/m2 [facility] Systolic blood pressure 2023-04-09 01:04:48 135 mm[Hg] [facility] Diastolic blood pressure 2023-04-09 01:04:48 84 mm[Hg] [facility] Heart rate 2023-04-09 01:04:48 67 /min [facility] Respiratory rate 2023-04-09 01:04:48 16 /min [facility] Oxygen saturation in Arterial blood by Pulse oximetry 2023-04-09 01:04:48 99 /min [facility] Body temperature 2023-04-08 22:16:00 36.67 Latanya [facility] Body height 2023-04-08 22:16:00 157.5 cm [facility] Body weight 2023-04-08 22:16:00 99.791 kg [facility] BMI 2023-04-08 22:16:00 40.24 kg/m2 [facility] Systolic blood pressure 2023-03-10 05:00:00 156 mm[Hg] [facility] Diastolic blood pressure 2023-03-10 05:00:00 94 mm[Hg] [facility] Heart rate 2023-03-10 05:00:00 75 /min [facility] Respiratory rate 2023-03-10 05:00:00 21 /min [facility] Oxygen saturation in Arterial blood by Pulse oximetry 2023-03-10 05:00:00 97 /min [facility] Body temperature 2023-03-10 01:20:00 36.72 Latanya [facility] Body height 2023-03-10 01:20:00 157.5 cm [facility] Body weight 2023-03-10 01:20:00 100.381 kg [facility] BMI 2023-03-10 01:20:00 40.48 kg/m2 [facility] Systolic blood pressure 2023-03-02 06:00:00 126 mm[Hg] [facility] Diastolic blood pressure 2023-03-02 06:00:00 79 mm[Hg] [facility] Heart rate 2023-03-02 06:00:00 69 /min [facility] Respiratory rate 2023-03-02 06:00:00 23 /min [facility] Oxygen saturation in Arterial blood by Pulse oximetry 2023-03-02 06:00:00 94 /min [facility] Body temperature 2023-03-02 00:34:00 37.28 Latanya [facility] Body height 2023-03-02 00:34:00 157.5 cm [facility] Body weight 2023-03-02 00:34:00 99.791 kg [facility] BMI 2023-03-02 00:34:00 40.24 kg/m2 [facility] Systolic blood pressure 2023-02-18 06:46:00 126 mm[Hg] [facility] Diastolic blood pressure 2023-02-18 06:46:00 77 mm[Hg] [facility] Heart rate 2023-02-18 06:46:00 79 /min [facility] Respiratory rate 2023-02-18 06:46:00 16 /min [facility] Oxygen saturation in Arterial blood by Pulse oximetry 2023-02-18 06:46:00 95 /min [facility] Body temperature 2023-02-18 03:55:00 36.72 Latanya [facility] Body height 2023-02-18 03:55:00 157.5 cm [facility] Body weight 2023-02-18 03:55:00 102.331 kg [facility] BMI 2023-02-18 03:55:00 41.26 kg/m2 [facility] Systolic blood pressure 2023-02-17 16:20:00 113 mm[Hg] [facility] Diastolic blood pressure 2023-02-17 16:20:00 65 mm[Hg] [facility] Heart rate 2023-02-17 16:20:00 65 /min [facility] Body temperature 2023-02-17 16:20:00 36.83 Latanya [facility] Respiratory rate 2023-02-17 16:20:00 16 /min [facility] Oxygen saturation in Arterial blood by Pulse oximetry 2023-02-17 16:20:00 97 /min [facility] Body weight 2023-02-17 08:50:00 99.973 kg [facility] BMI 2023-02-17 08:50:00 40.31 kg/m2 [facility] Body height 2023-02-16 01:19:00 157.5 cm [facility] Systolic blood pressure 2022-01-10 01:24:00 120 mm[Hg] [facility] Diastolic blood pressure 2022-01-10 01:24:00 76 mm[Hg] [facility] Heart rate 2022-01-10 01:24:00 73 /min [facility] Respiratory rate 2022-01-10 01:24:00 16 /min [facility] Oxygen saturation in Arterial blood by Pulse oximetry 2022-01-10 01:24:00 96 /min [facility] Body weight 2022-01-09 21:39:00 104.327 kg [facility] BMI 2022-01-09 21:39:00 42.07 kg/m2 [facility] Systolic blood pressure 2021-12-14 07:22:00 121 mm[Hg] [facility] Diastolic blood pressure 2021-12-14 07:22:00 86 mm[Hg] [facility] Heart rate 2021-12-14 07:22:00 80 /min [facility] Respiratory rate 2021-12-14 07:22:00 17 /min [facility] Oxygen saturation in Arterial blood by Pulse oximetry 2021-12-14 07:22:00 96 /min [facility] Body temperature 2021-12-14 03:06:00 36.72 Latanya [facility] Body height 2021-12-14 03:06:00 157.5 cm [facility] Body weight 2021-12-14 03:06:00 95.255 kg [facility] BMI 2021-12-14 03:06:00 38.41 kg/m2 [facility] Systolic blood pressure 2021-11-12 04:15:00 112 mm[Hg] [facility] Diastolic blood pressure 2021-11-12 04:15:00 75 mm[Hg] [facility] Heart rate 2021-11-12 04:15:00 92 /min [facility] Body temperature 2021-11-12 04:15:00 36.44 Latanya [facility] Respiratory rate 2021-11-12 04:15:00 18 /min [facility] Oxygen saturation in Arterial blood by Pulse oximetry 2021-11-12 04:15:00 98 /min [facility] Body height 2021-11-12 00:41:00 157.5 cm [facility] Body weight 2021-11-12 00:41:00 95.255 kg [facility] BMI 2021-11-12 00:41:00 38.41 kg/m2 [facility] Systolic blood pressure 2021-09-12 01:31:00 142 mm[Hg] [facility] Diastolic blood pressure 2021-09-12 01:31:00 80 mm[Hg] [facility] Heart rate 2021-09-12 01:31:00 78 /min [facility] Body temperature 2021-09-12 01:31:00 36.72 Latanya [facility] Respiratory rate 2021-09-12 01:31:00 18 /min [facility] Body height 2021-09-12 01:31:00 157.5 cm [facility] Body weight 2021-09-12 01:31:00 99.791 kg [facility] BMI 2021-09-12 01:31:00 40.24 kg/m2 [facility] Oxygen saturation in Arterial blood by Pulse oximetry 2021-09-12 01:31:00 97 /min [facility] Systolic blood pressure 2021-08-15 08:20:00 120 mm[Hg] [facility] [facility] Diastolic blood pressure 2021-08-15 08:20:00 74 mm[Hg] [facility] Heart rate 2021-08-15 08:20:00 69 /min [facility] Respiratory rate 2021-08-15 08:20:00 20 /min [facility] Oxygen saturation in Arterial blood by Pulse oximetry 2021-08-15 08:20:00 96 /min [facility] Body temperature 2021-08-15 05:34:00 36.22 Latanya [facility] Body height 2021-08-15 05:34:00 157.5 cm [facility] Body weight 2021-08-15 05:34:00 99.791 kg [facility] BMI 2021-08-15 05:34:00 40.24 kg/m2 [facility] Systolic blood pressure 2021-05-28 10:00:00 122 mm[Hg] [facility] Diastolic blood pressure 2021-05-28 10:00:00 78 mm[Hg] [facility] Heart rate 2021-05-28 10:00:00 75 /min [facility] Respiratory rate 2021-05-28 10:00:00 20 /min [facility] Oxygen saturation in Arterial blood by Pulse oximetry 2021-05-28 10:00:00 99 /min [facility] Body temperature 2021-05-28 05:21:00 36.11 Latanya [facility] Body height 2021-05-28 05:21:00 157.5 cm [facility] Body weight 2021-05-28 05:21:00 99.791 kg [facility] BMI 2021-05-28 05:21:00 40.24 kg/m2 [facility] Systolic blood pressure 2021-04-08 21:55:00 110 mm[Hg] [facility] Diastolic blood pressure 2021-04-08 21:55:00 80 mm[Hg] [facility] Heart rate 2021-04-08 21:55:00 70 /min [facility] Body temperature 2021-04-08 21:55:00 36.28 Latanya [facility] Respiratory rate 2021-04-08 21:55:00 16 /min [facility] Oxygen saturation in Arterial blood by Pulse oximetry 2021-04-08 21:55:00 94 /min [facility] Body height 2021-04-08 03:00:00 157.5 cm [facility] Body weight 2021-04-08 03:00:00 105.688 kg [facility] BMI 2021-04-08 03:00:00 42.62 kg/m2 [facility] Systolic blood pressure 2021-01-12 09:00:00 147 mm[Hg] [facility] Diastolic blood pressure 2021-01-12 09:00:00 71 mm[Hg] [facility] Heart rate 2021-01-12 09:00:00 103 /min [facility] Respiratory rate 2021-01-12 09:00:00 18 /min [facility] Oxygen saturation in Arterial blood by Pulse oximetry 2021-01-12 09:00:00 97 /min [facility] Body temperature 2021-01-12 07:48:00 37.06 Latanya [facility] Body height 2021-01-12 07:48:00 157.5 cm [facility] Body weight 2021-01-12 07:48:00 102.513 kg [facility] BMI 2021-01-12 07:48:00 41.34 kg/m2 [facility] Systolic blood pressure 2020-12-11 01:30:00 136 mm[Hg] [facility] Diastolic blood pressure 2020-12-11 01:30:00 88 mm[Hg] [facility] Heart rate 2020-12-11 01:30:00 99 /min [facility] Respiratory rate 2020-12-11 01:30:00 28 /min [facility] Oxygen saturation in Arterial blood by Pulse oximetry 2020-12-11 01:30:00 97 /min [facility] Body temperature 2020-12-10 22:11:00 36.78 Latanya [facility] Body weight 2020-12-10 22:11:00 99.791 kg [facility] BMI 2020-12-10 22:11:00 40.24 kg/m2 [facility] Systolic blood pressure 2020-12-04 21:30:00 126 mm[Hg] [facility] Diastolic blood pressure 2020-12-04 21:30:00 79 mm[Hg] [facility] Heart rate 2020-12-04 21:30:00 91 /min [facility] Respiratory rate 2020-12-04 21:30:00 20 /min [facility] Oxygen saturation in Arterial blood by Pulse oximetry 2020-12-04 21:30:00 96 /min [facility] Body temperature 2020-12-04 19:49:00 37.06 Latanya [facility] Body height 2020-12-04 19:49:00 157.5 cm [facility] Body weight 2020-12-04 19:49:00 99.791 kg [facility] BMI 2020-12-04 19:49:00 40.24 kg/m2 [facility] Systolic blood pressure 2020-11-04 01:42:00 142 mm[Hg] [facility] Diastolic blood pressure 2020-11-04 01:42:00 100 mm[Hg] [facility] Heart rate 2020-11-04 01:42:00 109 /min [facility] Body temperature 2020-11-04 01:42:00 36.78 Latanya [facility] Respiratory rate 2020-11-04 01:42:00 20 /min [facility] Body weight 2020-11-04 01:42:00 99.791 kg [facility] BMI 2020-11-04 01:42:00 40.24 kg/m2 [facility] Oxygen saturation in Arterial blood by Pulse oximetry 2020-11-04 01:42:00 98 /min [facility] Systolic blood pressure 2020-09-17 15:52:00 138 mm[Hg] [facility] Diastolic blood pressure 2020-09-17 15:52:00 94 mm[Hg] [facility] Heart rate 2020-09-17 15:52:00 98 /min [facility] Body temperature 2020-09-17 15:52:00 36.94 Latanya [facility] Respiratory rate 2020-09-17 15:52:00 20 /min [facility] Body weight 2020-09-17 15:52:00 95.255 kg [facility] BMI 2020-09-17 15:52:00 38.41 kg/m2 [facility] Oxygen saturation in Arterial blood by Pulse oximetry 2020-09-17 15:52:00 97 /min [facility] Systolic blood pressure 2020-09-17 15:52:00 138 mm[Hg] [facility] Diastolic blood pressure 2020-09-17 15:52:00 94 mm[Hg] [facility] Heart rate 2020-09-17 15:52:00 98 /min [facility] Body temperature 2020-09-17 15:52:00 36.94 Latanya [facility] Respiratory rate 2020-09-17 15:52:00 20 /min [facility] Body weight 2020-09-17 15:52:00 95.255 kg [facility] BMI 2020-09-17 15:52:00 38.41 kg/m2 [facility] Oxygen saturation in Arterial blood by Pulse oximetry 2020-09-17 15:52:00 97 /min [facility] Systolic blood pressure 2020-09-07 06:35:00 123 mm[Hg] [facility] Diastolic blood pressure 2020-09-07 06:35:00 56 mm[Hg] [facility] Heart rate 2020-09-07 06:35:00 97 /min [facility] Body temperature 2020-09-07 06:35:00 36.28 Latanya [facility] Respiratory rate 2020-09-07 06:35:00 18 /min [facility] Body weight 2020-09-07 06:35:00 99.791 kg [facility] BMI 2020-09-07 06:35:00 40.24 kg/m2 [facility] Oxygen saturation in Arterial blood by Pulse oximetry 2020-09-07 06:35:00 98 /min [facility] Systolic blood pressure 2020-09-07 06:35:00 123 mm[Hg] [facility] Diastolic blood pressure 2020-09-07 06:35:00 56 mm[Hg] [facility] Heart rate 2020-09-07 06:35:00 97 /min [facility] Body temperature 2020-09-07 06:35:00 36.28 Latanya [facility] Respiratory rate 2020-09-07 06:35:00 18 /min [facility] Body weight 2020-09-07 06:35:00 99.791 kg [facility] BMI 2020-09-07 06:35:00 40.24 kg/m2 [facility] Oxygen saturation in Arterial blood by Pulse oximetry 2020-09-07 06:35:00 98 /min [facility] Systolic blood pressure 2020-08-28 09:00:00 132 mm[Hg] [facility] Diastolic blood pressure 2020-08-28 09:00:00 87 mm[Hg] [facility] Heart rate 2020-08-28 09:00:00 90 /min [facility] Respiratory rate 2020-08-28 09:00:00 20 /min [facility] Oxygen saturation in Arterial blood by Pulse oximetry 2020-08-28 09:00:00 97 /min [facility] Body temperature 2020-08-28 07:59:00 36.72 Latanya [facility] Body height 2020-08-28 07:59:00 157.5 cm [facility] Body weight 2020-08-28 07:59:00 99.791 kg [facility] BMI 2020-08-28 07:59:00 40.24 kg/m2 [facility] Systolic blood pressure 2020-08-28 09:00:00 132 mm[Hg] [facility] Diastolic blood pressure 2020-08-28 09:00:00 87 mm[Hg] [facility] Heart rate 2020-08-28 09:00:00 90 /min [facility] Respiratory rate 2020-08-28 09:00:00 20 /min [facility] Oxygen saturation in Arterial blood by Pulse oximetry 2020-08-28 09:00:00 97 /min [facility] Body temperature 2020-08-28 07:59:00 36.72 Latanya [facility] Body height 2020-08-28 07:59:00 157.5 cm [facility] Body weight 2020-08-28 07:59:00 99.791 kg [facility] BMI 2020-08-28 07:59:00 40.24 kg/m2 [facility] Systolic blood pressure 2020-08-14 19:40:00 135 mm[Hg] [facility] Diastolic blood pressure 2020-08-14 19:40:00 100 mm[Hg] [facility] Heart rate 2020-08-14 19:40:00 68 /min [facility] Body temperature 2020-08-14 19:40:00 37.11 Latanya [facility] Respiratory rate 2020-08-14 19:40:00 19 /min [facility] Oxygen saturation in Arterial blood by Pulse oximetry 2020-08-14 19:40:00 99 /min [facility] Body height 2020-08-14 17:41:00 157.5 cm [facility] Body weight 2020-08-14 17:41:00 99.791 kg [facility] BMI 2020-08-14 17:41:00 40.24 kg/m2 [facility] Systolic blood pressure 2020-08-14 19:40:00 135 mm[Hg] [facility] Diastolic blood pressure 2020-08-14 19:40:00 100 mm[Hg] [facility] Heart rate 2020-08-14 19:40:00 68 /min [facility] Body temperature 2020-08-14 19:40:00 37.11 Latanya [facility] Respiratory rate 2020-08-14 19:40:00 19 /min [facility] Oxygen saturation in Arterial blood by Pulse oximetry 2020-08-14 19:40:00 99 /min [facility] Body height 2020-08-14 17:41:00 157.5 cm [facility] Body weight 2020-08-14 17:41:00 99.791 kg [facility] BMI 2020-08-14 17:41:00 40.24 kg/m2 [facility] Systolic blood pressure 2020-08-11 04:00:00 106 mm[Hg] [facility] Diastolic blood pressure 2020-08-11 04:00:00 92 mm[Hg] [facility] Heart rate 2020-08-11 04:00:00 90 /min [facility] Respiratory rate 2020-08-11 04:00:00 16 /min [facility] Oxygen saturation in Arterial blood by Pulse oximetry 2020-08-11 04:00:00 99 /min [facility] Body temperature 2020-08-11 03:12:56 37.72 Latanya [facility] Body height 2020-08-11 00:19:00 157.5 cm [facility] Body weight 2020-08-11 00:19:00 99.791 kg [facility] BMI 2020-08-11 00:19:00 40.24 kg/m2 [facility] Systolic blood pressure 2020-08-11 04:00:00 106 mm[Hg] [facility] Diastolic blood pressure 2020-08-11 04:00:00 92 mm[Hg] [facility] Heart rate 2020-08-11 04:00:00 90 /min [facility] Respiratory rate 2020-08-11 04:00:00 16 /min [facility] Oxygen saturation in Arterial blood by Pulse oximetry 2020-08-11 04:00:00 99 /min [facility] Body temperature 2020-08-11 03:12:56 37.72 Latanya [facility] Body height 2020-08-11 00:19:00 157.5 cm [facility] Body weight 2020-08-11 00:19:00 99.791 kg [facility] BMI 2020-08-11 00:19:00 40.24 kg/m2 [facility] Systolic blood pressure 2020-08-07 13:16:00 100 mm[Hg] [facility] Diastolic blood pressure 2020-08-07 13:16:00 69 mm[Hg] [facility] Heart rate 2020-08-07 13:16:00 99 /min [facility] Body temperature 2020-08-07 13:16:00 36.67 Latanya [facility] Respiratory rate 2020-08-07 13:16:00 18 /min [facility] Body weight 2020-08-07 13:16:00 95.255 kg [facility] BMI 2020-08-07 13:16:00 38.41 kg/m2 [facility] Oxygen saturation in Arterial blood by Pulse oximetry 2020-08-07 13:16:00 99 /min [facility] Systolic blood pressure 2020-08-07 13:16:00 100 mm[Hg] [facility] Diastolic blood pressure 2020-08-07 13:16:00 69 mm[Hg] [facility] Heart rate 2020-08-07 13:16:00 99 /min [facility] Body temperature 2020-08-07 13:16:00 36.67 Latanya [facility] Respiratory rate 2020-08-07 13:16:00 18 /min [facility] Body weight 2020-08-07 13:16:00 95.255 kg [facility] BMI 2020-08-07 13:16:00 38.41 kg/m2 [facility] Oxygen saturation in Arterial blood by Pulse oximetry 2020-08-07 13:16:00 99 /min [facility] Systolic blood pressure 2020-07-01 02:00:00 136 mm[Hg] [facility] Diastolic blood pressure 2020-07-01 02:00:00 85 mm[Hg] [facility] Heart rate 2020-07-01 02:00:00 73 /min [facility] Respiratory rate 2020-07-01 02:00:00 20 /min [facility] Oxygen saturation in Arterial blood by Pulse oximetry 2020-07-01 02:00:00 97 /min [facility] Body temperature 2020-06-30 23:36:00 36.56 Latanya [facility] Body height 2020-06-30 23:36:00 157.5 cm [facility] Body weight 2020-06-30 23:36:00 95.255 kg [facility] BMI 2020-06-30 23:36:00 38.41 kg/m2 [facility] Systolic blood pressure 2020-07-01 02:00:00 136 mm[Hg] [facility] Diastolic blood pressure 2020-07-01 02:00:00 85 mm[Hg] [facility] Heart rate 2020-07-01 02:00:00 73 /min [facility] Respiratory rate 2020-07-01 02:00:00 20 /min [facility] Oxygen saturation in Arterial blood by Pulse oximetry 2020-07-01 02:00:00 97 /min [facility] Body temperature 2020-06-30 23:36:00 36.56 Latanya [facility] Body height 2020-06-30 23:36:00 157.5 cm [facility] Body weight 2020-06-30 23:36:00 95.255 kg [facility] BMI 2020-06-30 23:36:00 38.41 kg/m2 [facility] Systolic blood pressure 2020-06-28 21:57:00 151 mm[Hg] [facility] Diastolic blood pressure 2020-06-28 21:57:00 88 mm[Hg] [facility] Heart rate 2020-06-28 21:57:00 94 /min [facility] Body temperature 2020-06-28 21:57:00 37.78 Latanya [facility] Respiratory rate 2020-06-28 21:57:00 16 /min [facility] Body height 2020-06-28 21:57:00 157.5 cm [facility] Body weight 2020-06-28 21:57:00 95.255 kg [facility] BMI 2020-06-28 21:57:00 38.41 kg/m2 [facility] Oxygen saturation in Arterial blood by Pulse oximetry 2020-06-28 21:57:00 96 /min [facility] Systolic blood pressure 2020-06-28 21:57:00 151 mm[Hg] [facility] Diastolic blood pressure 2020-06-28 21:57:00 88 mm[Hg] [facility] Heart rate 2020-06-28 21:57:00 94 /min [facility] Body temperature 2020-06-28 21:57:00 37.78 Latanya [facility] Respiratory rate 2020-06-28 21:57:00 16 /min [facility] Body height 2020-06-28 21:57:00 157.5 cm [facility] Body weight 2020-06-28 21:57:00 95.255 kg [facility] BMI 2020-06-28 21:57:00 38.41 kg/m2 [facility] Oxygen saturation in Arterial blood by Pulse oximetry 2020-06-28 21:57:00 96 /min [facility] Systolic blood pressure 2020-06-13 03:40:00 122 mm[Hg] [facility] Diastolic blood pressure 2020-06-13 03:40:00 78 mm[Hg] [facility] Heart rate 2020-06-13 03:40:00 90 /min [facility] Respiratory rate 2020-06-13 03:40:00 18 /min [facility] Oxygen saturation in Arterial blood by Pulse oximetry 2020-06-13 03:40:00 94 /min [facility] Body temperature 2020-06-12 23:39:00 37.22 Latanya [facility] Body weight 2020-06-12 23:39:00 97.07 kg [facility] BMI 2020-06-12 23:39:00 39.14 kg/m2 [facility] Systolic blood pressure 2020-06-13 03:40:00 122 mm[Hg] [facility] Diastolic blood pressure 2020-06-13 03:40:00 78 mm[Hg] [facility] Heart rate 2020-06-13 03:40:00 90 /min [facility] Respiratory rate 2020-06-13 03:40:00 18 /min [facility] Oxygen saturation in Arterial blood by Pulse oximetry 2020-06-13 03:40:00 94 /min [facility] Body temperature 2020-06-12 23:39:00 37.22 Latanya [facility] Body weight 2020-06-12 23:39:00 97.07 kg [facility] BMI 2020-06-12 23:39:00 39.14 kg/m2 [facility] Heart rate 2020-05-17 00:40:00 82 /min [facility] Respiratory rate 2020-05-17 00:40:00 18 /min [facility] Oxygen saturation in Arterial blood by Pulse oximetry 2020-05-17 00:40:00 95 /min [facility] Systolic blood pressure 2020-05-17 00:00:00 137 mm[Hg] [facility] Diastolic blood pressure 2020-05-17 00:00:00 93 mm[Hg] [facility] Body temperature 2020-05-16 23:17:00 37.61 Latanya [facility] Body weight 2020-05-16 23:17:00 97.07 kg [facility] BMI 2020-05-16 23:17:00 39.14 kg/m2 [facility] Heart rate 2020-05-17 00:40:00 82 /min [facility] Respiratory rate 2020-05-17 00:40:00 18 /min [facility] Oxygen saturation in Arterial blood by Pulse oximetry 2020-05-17 00:40:00 95 /min [facility] Systolic blood pressure 2020-05-17 00:00:00 137 mm[Hg] [facility] Diastolic blood pressure 2020-05-17 00:00:00 93 mm[Hg] [facility] Body temperature 2020-05-16 23:17:00 37.61 Latanya [facility] Body weight 2020-05-16 23:17:00 97.07 kg [facility] BMI 2020-05-16 23:17:00 39.14 kg/m2 [facility] Systolic blood pressure 2020-05-15 08:50:00 131 mm[Hg] [facility] Diastolic blood pressure 2020-05-15 08:50:00 80 mm[Hg] [facility] Heart rate 2020-05-15 08:50:00 70 /min [facility] Respiratory rate 2020-05-15 08:50:00 18 /min [facility] Oxygen saturation in Arterial blood by Pulse oximetry 2020-05-15 08:50:00 97 /min [facility] Body temperature 2020-05-15 05:29:00 36.44 Latanya [facility] Body height 2020-05-15 05:29:00 157.5 cm [facility] Body weight 2020-05-15 05:29:00 97.07 kg Simultaneous filing. User may not have seen previous data. [facility] BMI 2020-05-15 05:29:00 39.14 kg/m2 [facility] Systolic blood pressure 2020-05-15 08:50:00 131 mm[Hg] [facility] Diastolic blood pressure 2020-05-15 08:50:00 80 mm[Hg] [facility] Heart rate 2020-05-15 08:50:00 70 /min [facility] Respiratory rate 2020-05-15 08:50:00 18 /min [facility] Oxygen saturation in Arterial blood by Pulse oximetry 2020-05-15 08:50:00 97 /min [facility] Body temperature 2020-05-15 05:29:00 36.44 Latanya [facility] Body height 2020-05-15 05:29:00 157.5 cm [facility] Body weight 2020-05-15 05:29:00 97.07 kg Simultaneous filing. User may not have seen previous data. [facility] BMI 2020-05-15 05:29:00 39.14 kg/m2 [facility] Procedures Procedure Date / Time Performed Performing Clinician Source TROPONIN I 2024-10-13 06:39:00 Olivia Garcia [facility] LIPASE 2024-10-13 04:20:00 Olivia Garcia [facility] TROPONIN I 2024-10-13 04:20:[facility] METABOLIC PANEL ([id number]) 2024-10-13 04:20:00 Olivia Garcia [facility] CBC WITH DIFF 2024-10-13 04:20:00 [facility] 2024-10-13 04:20:00 Olivia Garcia [facility] POCT TEST 2024-10-13 03:46:00 Olivia Garcia [facility] URINALYSIS 2024-10-13 03:39:00 Olivia Garcia [facility] URINE DRUG (IMMUNOASSAY) - COMPREHENSIVE DRUG SCREEN 2024-07-19 06:11:00 Saleem Edward Eleni [facility] URINALYSIS 2024-07-19 06:11:00 [facility] CHEST PULMONARY ANGIOGRAM 2024-07-19 05:46:40 Saleem Edward [facility] MAGNESIUM 2024-07-19 05:08:00 Saleem Edward [facility] TROPONIN I 2024-07-19 05:08:00 Saleem Edward Eleni [facility] COMP. METABOLIC PANEL ([id number]) 2024-07-19 05:08:00 Saleem Edward Eleni [facility] CBC WITH DIFF 2024-07-19 05:08:00 Saleem Edward Eleni [facility] INFLUENZA A/B RSV COVID NAAT 2024-07-19 05:08:00 Saleem Edward Eleni [facility] N-TERMINAL PRO-BNP 2024-07-19 05:08:00 Saleem Edwadr Eleni [facility] CT ABDOMEN PELVIS W CONTRAST 2024-07-04 05:47:25 Sandy Garcia [facility] POCT TEST 2024-07-04 05:33:00 Ross Garcia [facility] LIPASE 2024-07-04 03:23:00 Sandy Garcia [facility] COMP. METABOLIC PANEL ([id number]) 2024-07-04 03:23:00 Sandy Garcia [facility] CBC WITH DIFF 2024-07-04 03:23:00 Sandy Garcia [facility] URINALYSIS 2024-07-04 03:23:[address] [facility] CT ABDOMEN PELVIS W CONTRAST 2024-06-15 05:33:59 Sandy Garcia [facility] URINALYSIS 2024-06-15 04:18:[address] [facility] LIPASE 2024-06-15 04:14:[address] [facility] TEST, SERUM 2024-06-15 04:14:00 Laney Garcia [facility] TROPONIN I 2024-06-15 04:14:00 Sandy Garcia [facility] COMP. METABOLIC PANEL ([id number]) 2024-06-15 04:14:00 Sandy Garcia [facility] CBC WITH DIFF 2024-06-15 04:14:00 Sandy Garcia [facility] TROPONIN I 2024-06-07 07:19:00 Olivia Garcia [facility] XR CHEST 1 VW 2024-06-07 05:38:37 Olivia Garcia [facility] POCT TEST 2024-06-07 05:19:00 Olivia Garcia [facility] URINE DRUG (IMMUNOASSAY) - COMPREHENSIVE DRUG SCREEN 2024-06-07 05:18:00 Olivia Garcia [facility] TROPONIN I 2024-06-07 04:10:00 Olivia Garcia [facility] COMP. METABOLIC PANEL ([id number]) 2024-06-07 04:10:00 Olivia Garcia [facility] CBC WITH DIFF 2024-06-07 04:10:00 Olivia Garcia [facility] CT HEAD WO CONTRAST 2024-05-19 18:22:43 Annalise Wright [facility] XR ELBOW <3 VW RIGHT 2024-05-18 02:32:12 Alesha Barrera [facility] XR FOREARM 2 VW RIGHT 2024-05-18 02:32:12 Alesha Moralez [facility] XR HAND 3+ VW RIGHT 2024-05-18 02:32:12 Alesha Casanova [facility] CT CERVICAL SPINE WO CONTRAST 2024-05-18 02:11:45 Alesha Roy [facility] CT MAXILLOFACIAL/MANDIBLE WO CONTRAST 2024-05-18 02:11:45 Alesha Roy [facility] POCT TEST 2024-05-08 02:00:00 Saleem Edward [facility] LIPASE 2024-05-08 00:31:[address] [facility] MAGNESIUM 2024-05-08 00:31:00 Saleem Edward [facility] TROPONIN I 2024-05-08 00:31:00 Saleem Edward [facility] COMP. METABOLIC PANEL ([id number]) 2024-05-08 00:31:00 Saleem Edward [facility] CBC WITH DIFF 2024-05-08 00:31:00 Saleem Edward [facility] URINALYSIS 2024-05-08 00:31:00 Saleem Edward [facility] ABDOMEN PELVIS WO CONTRAST 2024-04-08 23:45:15 Leigh Rojo [facility] POCT TEST 2024-04-08 23:01:00 Judy Rojo [facility] LIPASE 2024-04-08 22:47:[address] [facility] COMP. METABOLIC PANEL ([id number]) 2024-04-08 22:47:00 Leigh Rojo [facility] CBC WITH DIFF 2024-04-08 22:47:00 Leigh Rojo [facility] URINALYSIS 2024-04-08 22:47:[address] [facility] CT ABDOMEN PELVIS W CONTRAST 2023-10-11 04:08:24 Olivia Garcia [facility] POCT TEST 2023-10-11 03:40:00 Olivia Garcia [facility] LIPASE 2023-10-11 03:25:00 Olivia Garcia [facility] COMP. METABOLIC PANEL ([id number]) 2023-10-11 03:25:00 Olivia Garcia [facility] CBC WITH DIFF 2023-10-11 03:25:00 Olivia Garcia [facility] URINALYSIS 2023-10-11 03:25:00 Olivia Garcia [facility] XR KUB 2023-07-02 03:34:07 Roberto Richards [facility] POCT TEST 2023-07-02 02:30:00 Alberta Richards [facility] LIPASE 2023-07-02 02:05:[address] [facility] COMP. METABOLIC PANEL ([id number]) 2023-07-02 02:05:00 Roberto Richards [facility] CBC WITH DIFF 2023-07-02 02:05:00 Roberto Richards [facility] URINALYSIS 2023-07-02 02:05:[address] [facility] URINE DRUG (IMMUNOASSAY) - COMPREHENSIVE DRUG SCREEN W/O REFLEX 2023-07-02 02:05:00 Roberto Richards [facility] CONSENT/REFUSAL FOR DIAGNOSIS AND TREATMENT 2023-07-02 01:43:05 Doctor Unassigned, [place] [facility] LIPASE 2023-05-09 22:47:[address] [facility] COMP. METABOLIC PANEL ([id number]) 2023-05-09 22:47:00 Narayan Narvaez [facility] CBC WITH DIFF 2023-05-09 22:47:00 Narayan Narvaez [facility] CONSENT/REFUSAL FOR DIAGNOSIS AND TREATMENT 2023-05-09 22:32:48 Doctor Unassigned, [place] [facility] CT ABDOMEN PELVIS W CONTRAST 2023-04-30 23:47:56 Narayan Narvaez [facility] COMP. METABOLIC PANEL ([id number]) 2023-04-30 23:08:00 Narayan Narvaez [facility] CBC WITH DIFF 2023-04-30 23:08:00 Narayan Narvaez [facility] POCT TEST 2023-04-30 22:59:00 Jaquan Narvaez [facility] URINALYSIS 2023-04-30 22:57:00 Narayan Narvaez [facility] CONSENT/REFUSAL FOR DIAGNOSIS AND TREATMENT 2023-04-30 22:14:38 Doctor Unassigned, [place] [facility] XR ABDOMEN ACUTE SERIES 2023-04-17 02:13:44 Do minal Richards [facility] POCT TEST 2023-04-17 02:11:00 Alberta Richards [facility] LIPASE 2023-04-17 02:04:[address] [facility] TROPONIN I 2023-04-17 02:04:00 Roberto Richards [facility] COMP. METABOLIC PANEL ([id number]) 2023-04-17 02:04:00 Roberto Richards [facility] CBC WITH DIFF 2023-04-17 02:04:00 Roberto Richards [facility] PROTHROMBIN TIME / INR 2023-04-17 02:04:00 Jalen Richards [facility] ACTIVATED PARTIAL THRMPLAS MARCIO 2023-04-17 02:04:00 Roberto Richards [facility] URINALYSIS 2023-04-17 02:04:[address] [facility] N-TERMINAL PRO-BNP 2023-04-17 02:04:00 Roberto Richards [facility] URINE DRUG (IMMUNOASSAY) - COMPREHENSIVE DRUG SCREEN W/O REFLEX 2023-04-17 02:04:00 Roberto Richards [facility] CONSENT/REFUSAL FOR DIAGNOSIS AND TREATMENT 2023-04-17 01:22:36 Doctor Unassigned, [place] [facility] URINALYSIS 2023-04-09 01:02:[address] [facility] LIPASE 2023-04-08 23:15:00 Saleem Edward [facility] MAGNESIUM 2023-04-08 23:15:[address] [facility] TROPONIN I 2023-04-08 23:15:[address] [facility] COMP. METABOLIC PANEL ([id number]) 2023-04-08 23:15:00 Saleem Edward Eleni [facility] CBC WITH DIFF 2023-04-08 23:15:00 [facility] FOR [facility]AG[facility]IS AND TREATMENT 2023-04-08 21:57:42 Doctor Unassigned, [place] [facility] CT ABDOMEN PELVIS W CONTRAST 2023-03-10 03:38:58 Roberto Richards [facility] POCT TEST 2023-03-10 02:51:00 Alberta Richards [facility] URINALYSIS 2023-03-10 01:49:00 Roberto Richards [facility] LIPASE 2023-03-10 01:46:00 Roberto Richards [facility] COMP. METABOLIC PANEL ([id number]) 2023-03-10 01:46:00 Roberto Richards [facility] CBC WITH DIFF 2023-03-10 01:46:00 Roberto Richards [facility] CONSENT/REFUSAL FOR DIAGNOSIS AND TREATMENT 2023-03-10 01:36:24 Doctor Unassigned, [place] [facility] CONSENT/REFUSAL FOR DIAGNOSIS AND TREATMENT 2023-03-10 01:14:40 Doctor Unassigned, [place] [facility] CT ABDOMEN PELVIS W CONTRAST 2023-03-02 05:16:35 Olivia Garcia [facility] POCT TEST 2023-03-02 03:26:00 Olivia Garcia [facility] LIPASE 2023-03-02 03:23:00 Olivia Garcia [facility] COMP. METABOLIC PANEL ([id number]) 2023-03-02 03:23:00 Olivia Garcia [facility] CBC WITH DIFF 2023-03-02 03:23:00 Olivia Garcia [facility] URINALYSIS 2023-03-02 03:23:00 Olivia Garcia [facility] CONSENT/REFUSAL FOR DIAGNOSIS AND TREATMENT 2023-03-02 00:22:44 Doctor Unassigned, [place] [facility] CONSENT/REFUSAL FOR DIAGNOSIS AND TREATMENT 2023-02-18 03:44:46 Doctor Unassigned, [place] [facility] LIPASE 2023-02-17 09:28:00 [facility] ([id number]) (ALB,T.PRO,BILI T,BU/BC,ALT,AST,ALK PHOS) 2023-02-17 09:28:00 Kylah [facility] BASIC METABOLIC PANEL (NA, K, CL, CO2, GLUCOSE, BUN, CREATININE, CA) 2023-02-17 09:28:00 Kylah [facility] CBC WITH DIFF 2023-02-17 09:28:00 [facility]23-02-16 18:24:00 Kylah [facility] HEPATIC FUNCTION PANEL ([id number]) (ALB,T.PRO,BILI T,BU/BC,ALT,AST,ALK PHOS) 2023-02-16 18:24:00 Kylah [facility] BASIC METABOLIC PANEL (NA, K, CL, CO2, GLUCOSE, BUN, CREATININE, CA) 2023-02-16 18:24:00 Kylah [facility] CBC WITH DIFF 2023-02-16 18:23:00 Kylah [facility] CT ABDOMEN PELVIS W CONTRAST 2023-02-15 23:29:00 Leeanne Wise [facility] LIPASE 2023-02-15 21:45:00 Leeanne Wise [facility] COMP. METABOLIC PANEL ([id number]) 2023-02-15 21:45:00 Leeanne Wise [facility] CBC WITH DIFF 2023-02-15 21:45:00 Leeanne Wise [facility] D-DIMER 2023-02-15 19:55:00 Leeanne Wise [facility] URINALYSIS 2023-02-15 19:50:00 Leeanne Wise [facility] RAPID INFLUENZA A/B 2023-02-15 19:50:00 Leeanne Wise [facility] COVID-19 (ID NOW RAPID TESTING) 2023-02-15 19:50:00 Leeanne Wise [facility] XR CHEST 1 VW 2023-02-15 19:38:00 Leeanne Wise [facility] ASSIGNMENT OF BENEFITS 2023-02-15 19:26:58 Docto r Unassigned, [place] [facility] HB ECG ROUTINE & RHYTHM STRIP 2023-02-15 19:07:40 Leeanne Wise [facility] NOTICE OF PRIVACY PRACTICES 2023-02-15 18:24:07 Doctor Unassigned, [place] [facility] CONSENT/REFUSAL FOR DIAGNOSIS AND TREATMENT 2023-02-15 18:23:04 Doctor Unassigned, [place] [facility] TROPONIN I 2022-01-10 00:32:00 Melida Longoria [facility] TROPONIN I 2022-01-09 22:17:00 Melida Longoria [facility] BASIC METABOLIC PANEL (NA, K, CL, CO2, GLUCOSE, BUN, CREATININE, CA) 2022-01-09 22:17:00 Melida Longoria [facility] CBC WITH DIFF 2022-01-09 22:17:[address] [facility] N-TERMINAL PRO-BNP 2022-01-09 22:17:00 Melida Longoria [facility] XR CHEST 1 VW 2022-01-09 22:11:[address] [facility] CONSENT/REFUSAL FOR DIAGNOSIS AND TREATMENT 2022-01-09 21:34:15 Doctor Unassigned, [place] [facility] TROPONIN I 2021-12-14 05:39:00 Wil Mcqueen [facility] XR CHEST 1 VW 2021-12-14 04:39:00 Wil Mcqueen [facility] POCT TEST 2021-12-14 04:20:00 Wil Mcqueen [facility] URINALYSIS 2021-12-14 03:57:00 Wil Mcqueen [facility] LIPASE 2021-12-14 03:43:00 Wil Mcqueen [facility] TROPONIN I 2021-12-14 03:43:00 Wil Mcqueen [facility] FREE T4 2021-12-14 03:43:[address] [facility] THYROID STIMULATING HORMONE 2021-12-14 03:43:00 Wil Mcqueen [facility] COMP. METABOLIC PANEL ([id number]) 2021-12-14 03:43:00 Wil Mcqueen [facility] CBC WITH DIFF 2021-12-14 03:43:00 Wil Mcqueen [facility] FREE T3 2021-12-14 03:43:[address] [facility] CONSENT/REFUSAL FOR DIAGNOSIS AND TREATMENT 2021-12-14 02:58:21 Doctor Unassigned, [place] [facility] TROPONIN I 2021-11-12 03:04:00 Dee Wang [facility] POCT TEST 2021-11-12 02:56:00 Tra Wang [facility] URINE DRUG (IMMUNOASSAY) - COMPREHENSIVE DRUG SCREEN 2021-11-12 02:30:00 Dee Wang [facility] URINALYSIS 2021-11-12 02:30:00 Dee Wang [facility] XR CHEST 2 VW 2021-11-12 01:45:03 Dee Wang [facility] LIPASE 2021-11-12 01:34:00 Dee Wang [facility] TROPONIN I 2021-11-12 01:34:00 Dee Wang [facility] COMP. METABOLIC PANEL ([id number]) 2021-11-12 01:34:00 Dee Wang [facility] CBC WITH DIFF 2021-11-12 01:34:00 Dee Wang [facility] N-TERMINAL PRO-BNP 2021-11-12 01:34:00 Mckinley Wang [facility] CONSENT/REFUSAL FOR DIAGNOSIS AND TREATMENT 2021-11-12 00:36:34 Doctor Unassigned, [place] [facility] CT ABDOMEN PELVIS W CONTRAST 2021-09-12 02:49:43 Dee Wang [facility] COVID-19 (ID NOW RAPID TESTING) 2021-09-12 02:23:00 Dee Wang [facility] POCT TEST 2021-09-12 02:21:00 Tra Wang [facility] POCT TEST 2021-09-12 01:45:00 Olivia Garcia [facility] URINALYSIS 2021-09-12 01:43:00 Olivia Garcia [facility] LIPASE 2021-09-12 01:40:00 Olivia Garcia [facility] COMP. METABOLIC PANEL ([id number]) 2021-09-12 01:40:00 Olivia Garcia [facility] CBC WITH DIFF 2021-09-12 01:40:00 Olivia Garcia [facility] CONSENT/REFUSAL FOR DIAGNOSIS AND TREATMENT 2021-09-12 01:26:55 Doctor Unassigned, [place] [facility] XR LUMBAR SPINE 1 VW 2021-08-15 07:03:00 Angeles Garcia i [facility] URINALYSIS 2021-08-15 06:35:00 Olivia Garcia [facility] POCT TEST 2021-08-15 06:35:00 Olivia Garcia [facility] NOTICE OF PRIVACY PRACTICES 2021-08-15 06:01:56 Doctor Unassigned, [place] [facility] CONSENT/REFUSAL FOR DIAGNOSIS AND TREATMENT 2021-08-15 05:25:54 Doctor Unassigned, [place] [facility] TROPONIN I 2021-05-28 07:50:00 Cem Choi [facility] D-DIMER 2021-05-28 07:05:00 Cem Choi [facility] XR CHEST 2 VW 2021-05-28 05:46:00 Cem Choi [facility] POCT TEST 2021-05-28 05:32:00 Cem Choi [facility] LIPASE 2021-05-28 05:29:00 [facility] 2021-05-28 05:29:00 Anthony Cem [facility] COMP. METABOLIC PANEL ([id number]) 2021-05-28 05:29:00 Cem Choi [facility] CBC WITH DIFF 2021-05-28 05:29:00 Anthony [facility] N-TERMINAL PRO-BNP 2021-05-28 05:29:00 Cem Choi [facility] COVID-19 (ID NOW RAPID TESTING) 2021-05-28 [facility]:29[facility] 2021-04-08 10:01:00 Brittni Romero [facility] BASIC METABOLIC PANEL (NA, K, CL, CO2, GLUCOSE, BUN, CREATININE, CA) 2021-04-08 10:01:00 Brittni Romero [facility] CBC WITH DIFF 2021-04-08 10:01:00 Brittni Romero [facility] TROPONIN I 2021-04-08 04:12:00 Brittni Romero [facility] XR CHEST 1 VW 2021-04-07 22:33:33 Roberto Richards [facility] LIPASE 2021-04-07 21:52:00 Roberto Richards [facility] MAGNESIUM 2021-04-07 21:52:00 [facility] 2021-04-07 21:52:[address] THYROID STIMULATING HORMONE 2021-04-07 21:52:00 Brittni Romero [facility] COMP. METABOLIC PANEL ([id number]) 2021-04-07 21:52:00 Roberto Richards [facility] LIPID PANEL ([id number])(TOTAL CHOLESTEROL, TRIGLYCERIDES, HDL) 2021-04-07 21:52:00 [facility] 2021-04-07 21:52:00 Roberto Richards [facility] GLYCOSYLATED HEMOGLOBIN (A1C) 2021-04-07 21:52:00 Nick Brittni [facility] PROTHROMBIN TIME / INR 2021-04-07 21:52:00 Jalen Richards [facility] ACTIVATED PARTIAL THRMPLAS MARCIO 2021-04-07 21:52:00 Roberto Richards [facility] N-TERMINAL PRO-BNP 2021-04-07 21:52:00 Robetro Richards [facility] COVID-19 (ID NOW RAPID TESTING) 2021-04-07 21:51:00 Roberto Richards [facility] HB ECG ROUTINE & RHYTHM STRIP 2021-04-07 21:38:41 [facility]REFUSAL FOR DIAGNOSIS AND TREATMENT 2021-04-07 21:17:47 Doctor Unassigned, [place] [facility] CT ABDOMEN PELVIS WO CONTRAST 2021-01-12 08:10:17 Narayan Narvaez [facility] POCT TEST 2021-01-12 08:02:00 Jaquan Narvaez [facility] URINALYSIS 2021-01-12 07:58:[address] [facility] COMP. METABOLIC PANEL ([id number]) 2021-01-12 07:56:00 Narayan Narvaez [facility] CBC WITH DIFF 2021-01-12 07:56:00 Narayan Narvaez [facility] TROPONIN I 2020-12-11 00:47:00 Bal Hassan [facility] XR CHEST 1 VW 2020-12-10 22:40:57 Bal Hassan [facility] POCT TEST 2020-12-10 22:32:00 Suzanna Hassan [facility] URINALYSIS 2020-12-10 22:30:00 [facility] 2020-12-10 22:24:00 [facility] 2020-12-10 22:24:00 Mo [facility] HEPATIC FUNCTION PANEL ([id number]) (ALB,T.PRO,BILI T,BU/BC,ALT,AST,ALK PHOS) 2020-12-10 22:24:00 [facility]EL (NA, K, CL, CO2, GLUCOSE, BUN, CREATININE, CA) 2020-12-10 22:24:00 [facility]FF 2020-12-10 22:24:00 Bal Hassan [facility] D-DIMER 2020-12-10 22:24:00 Mo [facility] N-TERMINAL PRO-BNP 2020-12-10 22:24:00 Mirtha Hassan [facility] POCT TEST 2020-12-04 21:18:00 Tremaine Becerra [facility] URINALYSIS 2020-12-04 21:17:00 Tremaine Becerra [facility] LIPASE 2020-12-04 20:20:00 Tremaine Becerra [facility] TROPONIN I 2020-12-04 20:20:00 Hern[facility] HEPATIC FUNCTION PANEL ([id number]) (ALB,T.PRO,BILI T,BU/BC,ALT,AST,ALK PHOS) 2020-12-04 20:20:00 [facility]OLIC PANEL (NA, K, CL, CO2, GLUCOSE, BUN, CREATININE, CA) 2020-12-04 20:20:00 Tremaine Becerra [facility] CBC WITH DIFF 2020-12-04 20:20:00 Tremaine Becerra [facility] XR CHEST 1 VW 2020-12-04 20:16:54 [facility] XR ANKLE 3+ VW LEFT 2020-12-04 20:16:54 Hernan [facility] CONSENT/REFUSAL FOR DIAGNOSIS AND TREATMENT 2020-12-04 19:43:45 Doctor Unassigned, [place] [facility] XR CHEST 1 VW 2020-11-04 02:24:02 Olivia Garcia [facility] URINE DRUG (IMMUNOASSAY) - 4 ER PANEL 2020-11-04 02:19:00 Olivia Garcia [facility] URINALYSIS 2020-11-04 02:19:00 Olivia Garcia [facility] LIPASE 2020-11-04 02:16:00 [facility] TROPONIN I 2020-11-04 02:16:00 Olivia Garcia [facility] COMP. METABOLIC PANEL ([id number]) 2020-11-04 02:16:00 Olivia Garcia [facility] CBC WITH DIFF 2020-11-04 02:16:00 Olivia Garcia [facility] PROTHROMBIN TIME / INR 2020-11-04 02:16:00 Lucia Garcia [facility] ACTIVATED PARTIAL THRMPLAS MARCIO 2020-11-04 02:16:00 [facility] [facility] CONSENT/REFUSAL FOR DIAGNOSIS AND TREATMENT 2020-11-04 01:11:16 Doctor Unassigned, [place] [facility] XR CHEST 1 VW 2020-09-17 17:32:21 Leeanne Wise [facility] RAPID STREP SCREEN FOR GROUP A 2020-09-17 16:31:00 Leeanne Wise [facility] COVID-19 (ID NOW RAPID TESTING) 2020-09-17 16:31:00 Leeanne Wise [facility] NOTICE OF PRIVACY PRACTICES 2020-09-17 15:47:38 Doctor Unassigned, [place] [facility] CONSENT/REFUSAL FOR DIAGNOSIS AND TREATMENT 2020-09-17 15:47:07 Doctor Unassigned, [place] [facility] XR FOREARM 2 VW LEFT 2020-09-07 06:59:53 Saleem Edward [facility] XR HAND 3+ VW LEFT 2020-09-07 06:59:53 Saleem Edward [facility] NOTICE OF PRIVACY PRACTICES 2020-09-07 06:06:09 Doctor Unassigned, [place] [facility] CONSENT/REFUSAL FOR DIAGNOSIS AND TREATMENT 2020-09-07 06:03:10 Doctor Unassigned, [place] [facility] CT ABDOMEN PELVIS W CONTRAST 2020-08-28 09:16:08 Olivia Garcia [facility] POCT TEST 2020-08-28 08:45:00 Olivia Garcia [facility] URINALYSIS 2020-08-28 08:43:00 Olivia Garcia [facility] LIPASE 2020-08-28 08:09:00 Olivia Garcia [facility] COMP. METABOLIC PANEL (65300) 2020-08-28 08:09:00 Olivia Garcia [facility] CBC WITH DIFF 2020-08-28 08:09:00 Olivia Garcia [facility] XR CHEST 1 VW 2020-08-14 18:10:03 [facility] LIPASE 2020-08-14 17:58:00 Best Taylor [facility] TROPONIN I 2020-08-14 17:58:00 Best Taylor [facility] COMP. METABOLIC PANEL (99477) 2020-08-14 17:58:00 Best Taylor [facility] CBC WITH DIFF 2020-08-14 17:58:00 Best Taylor [facility] URINALYSIS 2020-08-14 17:58:[address] [facility] LACTIC ACID WHOLE BLOOD 2020-08-14 17:58:00 Sophie Taylor [facility] ADC / LCC - DRUG SCREEN TRIAGE 2020-08-14 17:58:00 Best Taylor [facility] CONSENT/REFUSAL FOR DIAGNOSIS AND TREATMENT 2020-08-14 17:33:16 Doctor Unassigned, [place] [facility] CT ABDOMEN PELVIS WO CONTRAST 2020-08-11 04:11:07 eBst Taylor [facility] XR CHEST 1 VW 2020-08-11 03:56:48 Best Taylor [facility] POCT TEST 2020-08-11 03:10:00 Best Taylor [facility] BLOOD CULTURE SCREEN 2020-08-11 02:01:00 Best Taylor [facility] BLOOD CULTURE SCREEN 2020-08-11 01:45:00 Best Taylor [facility] LIPASE 2020-08-11 01:45:[address] [facility] TROPONIN I 2020-08-11 01:45:00 Best Taylor [facility] HEPATIC FUNCTION PANEL (86103) (ALB,T.PRO,BILI T,BU/BC,ALT,AST,ALK PHOS) 2020-08-11 01:45:00 Best Taylor [facility] BASIC METABOLIC PANEL (NA, K, CL, CO2, GLUCOSE, BUN, CREATININE, CA) 2020-08-11 01:45:00 Best Taylor [facility] CBC WITH DIFF 2020-08-11 01:45:00 Best Taylor [facility] URINALYSIS 2020-08-11 01:45:[address] [facility] LACTIC ACID WHOLE BLOOD 2020-08-11 01:45:00 Sophie Taylor [facility] COVID-19 (ID NOW RAPID TESTING) 2020-08-11 01:45:00 Best Taylor [facility] CONSENT/REFUSAL FOR DIAGNOSIS AND TREATMENT 2020-08-11 00:12:54 Doctor Unassigned, [place] [facility] XR FOREARM 2 VW LEFT 2020-08-07 14:03:06 Unique Richards [facility] COVID-19 (ID NOW RAPID TESTING) 2020-08-07 13:35:00 Roberto Richards [facility] NOTICE OF PRIVACY PRACTICES 2020-08-07 13:13:25 Doctor Unassigned, [place] [facility] CONSENT/REFUSAL FOR DIAGNOSIS AND TREATMENT 2020-08-07 13:11:06 Doctor Unassigned, [place] [facility] CONSENT/REFUSAL FOR DIAGNOSIS AND TREATMENT 2020-08-07 13:10:57 Doctor Unassigned, [place] [facility] TROPONIN I 2020-07-01 02:03:00 Abdias Robertson [facility] POCT TEST 2020-07-01 00:51:00 [facility] URINALYSIS 2020-07-01 00:48:00 [facility] CBC WITH DIFF 2020-07-01 00:12:00 Abdias [facility] EXTRA TUBE LT. BLUE 2020-07-01 00:12:00 Abdias Robertson [facility] LIPASE 2020-07-01 00:09:00 [facility] TROPONIN I 2020-07-01 00:09:00 [facility] BASIC METABOLIC PANEL (NA, K, CL, CO2, GLUCOSE, BUN, CREATININE, CA) 2020-07-01 00:09:00 Abdias Robertson [facility] ADC,CLC OR LCC ONLY - INFLUENZA A & B DIRECT ANTIGEN 2020-07-01 00:09:00 [facility] N-TERMINAL PRO-BNP 2020-07-01 00:09:00 Abdias Robertson [facility] XR CHEST 1 VW 2020-07-01 00:07:07 Abdias [facility] NOTICE OF PRIVACY PRACTICES 2020-06-30 23:27:46 Doctor Unassigned, [place] [facility] CT CERVICAL SPINE WO CONTRAST 2020-06-28 23:12:00 Narayan Narvaez [facility] CONSENT/REFUSAL FOR DIAGNOSIS AND TREATMENT 2020-06-28 21:52:44 Doctor Unassigned, [place] [facility] POCT TEST 2020-06-13 01:50:00 Leeanne Wise [facility] XR CHEST 1 VW 2020-06-13 01:18:17 Leeanne Wise [facility] URINALYSIS 2020-06-13 00:34:00 Candi Wiseala Kristin [facility] COVID-19 (ID NOW RAPID TESTING) 2020-06-13 00:34:00 Leeanne Wise [facility] LIPASE 2020-06-13 00:33:00 Leeanne Wise [facility] TROPONIN I 2020-06-13 00:33:00 Mehnaz [facility] HEPATIC FUNCTION PANEL (82913) (ALB,T.PRO,BILI T,BU/BC,ALT,AST,ALK PHOS) 2020-06-13 00:33:00 [facility]IC [facility]EL (NA, K, CL, CO2, GLUCOSE, BUN, CREATININE, CA) 2020-06-13 00:33:00 Leeanne Wise [facility] CBC WITH DIFF 2020-06-13 00:33:00 Leeanne Wise [facility] D-DIMER 2020-06-13 00:33:00 Leeanne Wise [facility] CONSENT/REFUSAL FOR DIAGNOSIS AND TREATMENT 2020-06-12 23:27:48 Doctor Unassigned, [place] [facility] COVID-19 (ID NOW RAPID TESTING) 2020-05-16 23:50:00 Bushra Rios [facility] LIPASE 2020-05-16 23:21:00 Bushra Rios [facility] HEPATIC FUNCTION PANEL (79336) (ALB,T.PRO,BILI T,BU/BC,ALT,AST,ALK PHOS) 2020-05-16 23:21:00 Bushra Rios [facility] BASIC METABOLIC PANEL (NA, K, CL, CO2, GLUCOSE, BUN, CREATININE, CA) 2020-05-16 23:21:00 Bushra Rios [facility] CBC WITH DIFF 2020-05-16 23:21:00 [facility] 2020-05-15 07:42:00 Roberto Richards [facility] CT ABDOMEN PELVIS W CONTRAST 2020-05-15 06:56:53 Roberto Richards [facility] CT HEAD WO CONTRAST 2020-05-15 06:56:27 Alberta Richards [facility] POCT TEST 2020-05-15 05:53:00 Alberta Richards [facility] LIPASE 2020-05-15 05:52:00 Roberto Richards [facility] HEPATIC FUNCTION PANEL (18398) (ALB,T.PRO,BILI T,BU/BC,ALT,AST,ALK PHOS) 2020-05-15 05:52:00 Roberto Richards [facility] BASIC METABOLIC PANEL (NA, K, CL, CO2, GLUCOSE, BUN, CREATININE, CA) 2020-05-15 05:52:00 Roberto Richards [facility] ETHANOL 2020-05-15 05:52:00 Roberto Richards [facility] CBC WITH DIFF 2020-05-15 05:52:00 Roberto Richards [facility] PROTHROMBIN TIME / INR 2020-05-15 05:52:00 Jalen Richards [facility] ACTIVATED PARTIAL THRMPLAS MARCIO 2020-05-15 05:52:00 Roberto Richards [facility] URINALYSIS 2020-05-15 05:52:00 Roberto Richards [facility] ADC / LCC - DRUG SCREEN TRIAGE 2020-05-15 05:52:00 Roberto Richards [facility] NOTICE OF PRIVACY PRACTICES 2020-05-15 05:12:38 Doctor Unassigned, [place] [facility] CONSENT/REFUSAL FOR DIAGNOSIS AND TREATMENT 2020-05-15 05:12:26 Doctor Unassigned, [place] [facility] Encounters Start Date/Time End Date/Time Encounter Type Admission Type Attending [facility] Care Department Encounter ID Source 2024-12-02 09:30:00 2024-12-02 09:30:00 Outpatient CATHY STRICKLAND KELLEE DORMAN [id number] [facility] 2024-11-10 13:30:00 2024-11-10 13:30:00 Outpatient JOANNE MONTES [id number] Ekl[facility] 2024-11-10 13:30:00 2024-11-10 13:30:00 Outpatient JOANNE MONTES [id number] [facility] 2024-10-28 14:15:00 2024-10-28 14:15:00 Outpatient TYLER MAN [id number] [facility] 2024-10-26 11:30:00 2024-10-26 11:30:00 Outpatient FLORINDA REYES [id number] [facility] 2024-10-14 00:00:00 2024-10-14 00:00:00 Outpatient KELLEE DORMAN [id number] [facility] 2024-10-12 22:30:00 2024-10-13 02:45:00 Emergency X OLIVIA GARCIA WAKILI [facility] [id number] [facility] 2024-10-12 22:30:00 2024-10-13 02:45:00 Emergency Olivia Garcia S [facility] [id number] [id number] [id number] [id number] [facility] 2024-09-23 13:30:00 2024-09-23 13:30:00 Outpatient GISELLE OSORIO [id number] [facility] 2024-09-23 00:00:00 2024-09-23 00:00:00 Outpatient KELLEE DORMAN [id number] [facility] 2024-09-17 00:00:00 2024-09-17 00:00:00 Outpatient MD KELLEE CHOI [id number] [facility]ellee Ariasy[facility]beck 2024-09-15 11:15:00 2024-09-15 11:15:00 Outpatient KELLEE DORMAN [id number] [facility]ellee ybbeck 2024-09-15 10:45:00 2024-09-15 10:45:00 Outpatient [facility]E DORMAN [id number] [facility] 2024-09-15 10:15:00 2024-09-15 10:15:00 Outpatient KELLEE DORMAN [id number] [facility]ellee ybbeck 2024-09-15 07:30:00 2024-09-15 07:30:00 Outpatient KELLEE DORMAN [id number] [facility] 2024-09-15 00:00:00 2024-09-15 00:00:00 [id number] [facility]:00:00 2024-09-06 00:00:00 Outpatient JOANNE MONTES [id number] [facility] 2024-09-01 00:00:00 2024-09-01 00:00:00 Outpatient JOANNE MONTES [id number] [facility] 2024-08-27 00:00:00 2024-08-27 00:00:00 Outpatient CONRADO SMITH [id number] [facility] 2024-08-20 16:45:00 2024-08-20 16:45:00 Outpatient JÚNIOR FARRELL [id number] [facility] 2024-08-18 10:00:00 2024-08-18 10:00:00 Outpatient JOANNE MONTES [id number] [facility] 2024-08-05 15:30:00 2024-08-05 15:30:00 Outpatient CONRADO SMITH [id number] [facility] 2024-08-03 00:00:00 2024-08-03 00:00:00 Outpatient JOANNE MONTES [id number] [facility] 2024-07-18 22:48:00 2024-07-19 01:24:00 Emergency X Saleem EDWARD WAGNER, Saleem [facility] [id number] [facility] 2024-07-18 22:48:00 2024-07-19 01:24:00 Emergency Saleem Edward Eleni [facility] [id number] 350.1.13.10 4.2.7.2.686 [id number] [facility] 2024-07-15 00:00:00 2024-07-15 00:00:00 Outpatient JOANNE MONTES [id number] [facility] 2024-07-10 00:00:00 2024-07-10 00:00:00 Outpatient JOANNE MONTES [id number] [facility] 2024-07-09 00:00:00 2024-07-09 00:00:00 Outpatient RADIOLOGY, DEPT KELLEE DORMAN [id number] [facility] 2024-07-09 00:00:00 2024-07-09 00:00:00 Outpatient RADIOLOGY, DEPT KELLEE DORMAN [id number] [facility] 2024-07-07 00:00:00 2024-07-07 00:00:00 Outpatient MD KELLEE CHOI [id number] [facility] 2024-07-06 07:00:00 2024-07-06 07:00:00 Outpatient KELLEE DORMAN [id number] [facility] 2024-07-06 00:00:00 2024-07-06 00:00:00 Outpatient GISELLE OSORIO [id number] [facility] 2024-07-03 19:56:00 2024-07-04 01:32:00 Emergency X SANDY GARCIA SHINTA AZJULIANE ERT [id number] [facility] 2024-07-03 19:56:00 2024-07-04 01:32:00 Emergency Sandy Garcia [facility] [id number] 350.1.13.10 4.2.7.2.686 [id number] [facility] 2024-06-21 02:04:00 2024-06-21 02:59:00 Emergency X SANDY GARCIA SHINTA [facility] ERT [id number] [facility] 2024-06-21 02:04:00 2024-06-21 02:59:00 Emergency Sandy Garcia [facility] [id number] 350.1.13.10 4.2.7.2.686 [id number] [facility] 2024-06-20 00:00:00 2024-06-20 00:00:00 Outpatient JOANNE MONTES [id number] [facility] 2024-06-18 00:00:00 2024-06-18 00:00:00 Outpatient GISELLE OSORIO [id number] [facility] 2024-06-17 15:30:00 2024-06-17 15:30:00 Outpatient KELLEE DORMAN [id number] [facility] 2024-06-14 21:28:00 2024-06-15 00:28:00 Emergency X SANDY GARCIA SHINTA [facility] [id number] [facility] 2024-06-14 21:28:00 2024-06-15 00:28:00 Emergency Sandy Garcia [facility] [id number] 350.1.13.10 4.2.7.2.686 [id number] [facility] 2024-06-06 21:56:00 2024-06-07 02:40:00 Emergency X OLIVIA GARCIA WAKILI [facility] ERT [id number] [facility] 2024-06-06 21:56:00 2024-06-07 02:40:00 Emergency Olivia Garcia [facility] [id number] 350.1.13.10 4.2.7.2.686 [id number] [facility] 2024-06-02 00:00:00 2024-06-02 00:00:00 Outpatient JOANNE MONTES KELLEE DORMAN [id number] [facility] 2024-05-28 13:00:00 2024-05-28 13:00:00 Outpatient GISELLE OSORIO KELLEE KELLEE [id number] [facility] 2024-05-20 00:00:00 2024-05-20 00:00:00 Outpatient JOANNE MONTES KELLEE DORMAN [id number] [facility] 2024-05-19 11:44:00 2024-05-19 13:35:00 Emergency X ANNALISE WRIGHT [facility] [id number] [facility] 2024-05-19 11:44:00 2024-05-19 13:35:00 Emergency Annalise Wright [facility] [id number] 350.1.13.10 4.2.7.2.686 [id number] [facility] 2024-05-18 11:15:00 2024-05-18 11:15:00 Outpatient LAB90 KELLEE KELLEE [id number] [facility] 2024-05-18 10:30:00 2024-05-18 10:30:00 Outpatient JOANNE MONTES KELLEE KELLEE [id number] [facility] 2024-05-17 18:30:00 2024-05-17 22:19:00 Emergency Alesha Roy [facility] [id number] 350.1.13.10 4.2.7.2.686 [id number] [facility] 2024-05-13 18:04:00 2024-05-13 20:42:00 Emergency ER ARELIS KERN [facility] [id number] [facility] 2024-05-12 00:00:00 2024-05-12 00:00:00 Outpatient MARLINKhris JOANNE DORMAN [id number] [facility] 2024-05-07 18:47:00 2024-05-07 21:36:00 Emergency Wagner Saleem Knowles [facility] [id number] 350.1.13.10 4.2.7.2.686 [id number] [facility] 2024-04-22 09:15:00 2024-04-22 09:15:00 Outpatient FARTUN GILLESPIE [id number] [facility] 2024-04-15 10:30:00 2024-04-15 10:30:00 Outpatient JYOTI JOANNE DORMAN [id number] [facility] 2024-04-12 00:00:00 2024-04-12 00:00:00 Outpatient MARLINKhris JOANNE DORMAN [id number] [facility] 2024-04-10 16:20:00 2024-04-10 18:53:00 Emergency ER TAVARES MG JR [facility] [id number] [facility] 2024-04-10 16:20:00 2024-04-10 18:53:00 Departed Emergency Room [facility] [id number] [facility] 2024-04-08 17:37:00 2024-04-08 20:38:00 Emergency Florentino Leigh [facility] [id number] 350.1.13.10 4.2.7.2.686 [id number] [facility] 2024-04-08 00:00:00 2024-04-08 00:00:00 Outpatient JYOTI JOANNE DORMAN [id number] [facility] 2024-03-12 00:00:00 2024-03-12 00:00:00 Outpatient HUNDL, JOANNE KELLEE DORMAN [id number] [facility] 2024-03-06 11:00:00 2024-03-06 11:00:00 Outpatient HUNDL, JOANNE KELLEE DORMAN [id number] [facility] 2024-02-06 11:00:00 2024-02-06 11:00:00 Outpatient JO, GISELLE KELLEE DORMAN [id number] [facility] 2024-02-06 10:40:00 2024-02-06 10:40:00 Outpatient KELLEE DORMAN [id number] [facility] 2024-02-06 00:00:00 2024-02-06 00:00:00 Outpatient HUNDL, JOANNE KELLEE DORMAN [id number] [facility] 2024-02-05 00:00:00 2024-02-05 00:00:00 Outpatient HUNDL, JAONNE DORMAN [id number] [facility] 2024-01-14 09:30:00 2024-01-14 09:30:00 Outpatient HUNDL, JOANNE DORMAN [id number] [facility] 2024-01-09 00:00:00 2024-01-09 00:00:00 Outpatient HUNDL, JOANNE DORAMN [id number] [facility] 2024-01-06 00:00:00 2024-01-06 00:00:00 Outpatient HUNDL, [facility] [id number] [facility]-03 00:00:00 2024-01-03 00:00:00 Outpatient HUNDL, JOANNE DORMAN [id number] [facility]ellee [facility] 2024-01-02 14:00:00 2024-01-02 14:00:00 Outpatient HUNDL, JOANNE DORMAN [id number] [facility] 2023-12-13 09:30:00 2023-12-13 09:30:00 Outpatient HUNDL, JOANNE DORMAN [id number] [facility] 2023-12-09 00:00:00 2023-12-09 00:00:00 Outpatient JOANNE MONTES [id number] [facility] 2023-12-05 00:00:00 2023-12-05 00:00:00 Outpatient [facility]ANNE MONTES [id number] [facility] 2023-12-03 11:45:00 2023-12-03 11:45:00 Outpatient LAB90 KELLEE ANDERSENSEY [id number] [facility] 2023-12-03 11:00:00 2023-12-03 11:00:00 Outpatient JOANNE MONTES KELLEE [id number] [facility] 2023-11-26 00:00:00 2023-11-26 00:00:00 Outpatient JOANNE MONTES KELLEE [id number] [facility] 2023-10-31 00:00:00 2023-10-31 00:00:00 Outpatient COSMO ANDERSENROXANNE DORMAN [id number] [facility] 2023-10-31 00:00:00 2023-10-31 00:00:00 Outpatient COSMO DORMAN KELLEE [id number] [facility] 2023-10-29 14:15:00 2023-10-29 14:15:00 Outpatient LABGerman ANDERSENSEY [id number] [facility] 2023-10-29 13:30:00 2023-10-29 13:30:00 Outpatient JOANNE MONTES KELLEE [id number] [facility] 2023-10-10 21:31:00 2023-10-11 00:43:00 Emergency X OLIVIA GARCIA [facility] [id number] [facility] 2023-10-10 21:31:00 2023-10-11 00:43:00 Emergency TracypaulyFrederick veraamanda Shankar [facility] [id number] 350.1.13.10 4.2.7.2.686 [id number] [facility] 2023-08-31 18:02:00 2023-08-31 22:40:00 Emergency ER SHERIDAN MCMANUS [facility] [id number] [facility] 2023-08-31 18:02:00 2023-08-31 22:40:00 emergency [facility] [id number] 2023-07-01 19:50:00 2023-07-01 22:59:00 Emergency X ROBERTO RICHARDS [facility] [id number] [facility] 2023-07-01 19:50:00 2023-07-01 22:59:00 Emergency Roberto Richards [facility] [id number] 350.1.13.10 4.2.7.2.686 [id number] [facility] 2023-06-04 23:37:00 2023-06-06 13:30:00 Inpatient ER JO-ANN HERMELINDAPamela [facility] MED [id number] [facility] 2023-06-04 23:37:00 2023-06-06 13:30:00 observatio n encounter [facility] [id number] [facility] [id number] 2023-05-11 01:16:00 2023-05-13 17:04:00 Inpatient ER SHAMEKA RIDDHI [facility] MED [id number] [facility] 2023-05-11 01:16:00 2023-05-13 17:04:00 observatio n encounter [facility] [id number] 2023-05-10 21:48:00 2023-05-10 21:48:00 Emergency ER [facility]INKRUELSUZETTEDEREKSharleneAN [facility] [id number] [facility] 2023-05-09 17:40:00 2023-05-09 20:30:00 Emergency X NARAYAN NARVAEZ [facility] [id number] [facility] 2023-05-09 17:40:00 2023-05-09 20:30:00 Emergency Narayan Narvaez [facility] [id number] 350.1.13.10 4.2.7.2.686 [id number] [facility] 2023-05-05 21:31:00 2023-05-06 03:15:00 Emergency ER SHERIDAN MCMANUS [facility] [id number] [facility] 2023-05-05 21:31:00 2023-05-06 03:15:[address] [facility] [id number] 2023-04-30 17:18:00 2023-04-30 21:20:00 Emergency X NARAYAN NARVAEZ [facility] ERT [id number] [facility] 2023-04-30 17:18:00 2023-04-30 21:20:00 Emergency Narayan Narvaez [facility] 1.2.840.114 350.1.13.10 4.2.7.2.686 [id number] [facility] 2023-04-16 20:40:00 2023-04-16 23:10:00 Emergency X ROBERTO RICHARDS [facility] ERT [id number] [facility] 2023-04-16 20:40:00 2023-04-16 23:10:00 Emergency Roberto Richards [facility] 1.2.840.114 350.1.13.10 4.2.7.2.686 [id number] [facility] 2023-04-08 17:28:00 2023-04-08 21:20:00 Emergency X Saleem EDWARD [facility] ERT [id number] [facility] 2023-04-08 17:28:00 2023-04-08 21:20:00 Emergency Saleem Edward [facility] 1.2.840.114 350.1.13.10 4.2.7.2.686 [id number] [facility] 2023-03-09 20:23:00 2023-03-10 00:20:00 Emergency X ROBERTO RICHARDS [facility] ERT [id number] [facility] 2023-03-09 20:23:00 2023-03-10 00:20:00 Emergency Roberot Richards [facility] 1.2.840.114 350.1.13.10 4.2.7.2.686 [id number] [facility] 2023-03-01 19:35:00 2023-03-02 01:35:00 Emergency X OLIVIA GARCIA [facility] [id number] [facility] 2023-03-01 19:35:00 2023-03-02 01:35:00 Emergency Olivia Garcia [facility] 1.2.840.114 350.1.13.10 4.2.7.2.686 [id number] [facility] 2023-02-17 22:58:00 2023-02-18 02:22:00 Emergency X BRITTNI PADGETT [facility] [id number] [facility] 2023-02-17 22:58:00 2023-02-18 02:22:00 Emergency PadgettBrittni [facility] 1.2.840.114 350.1.13.10 4.2.7.2.686 [id number] [facility] 2023-02-15 13:46:00 2023-02-17 16:14:00 Outpatient X JESÚS MONTERO [facility] [id number] [facility] 2023-02-15 13:46:00 2023-02-17 16:14:00 Emergency Leeanne Wise MunirJesús david [facility] 1.2.840.114 350.1.13.10 4.2.7.2.686 [id number] [facility] 2022-01-17 10:48:00 2022-01-17 10:48:00 Outpatient FERGUSON_RENETTA HOBSON [facility] [id number] Heather henriquez [facility] 2022-01-09 16:47:00 2022-01-09 20:28:00 Emergency X CHEL LONGORIAIO [facility] [id number] [facility] 2022-01-09 16:47:00 2022-01-09 20:28:00 Emergency Chel Longoriaio C [facility] 1.2.840.114 350.1.13.10 4.2.7.2.686 [id number] [facility] 2021-12-13 22:16:00 2021-12-14 02:28:00 Emergency X WIL MCQUEEN [facility] [id number] [facility] 2021-12-13 22:16:00 2021-12-14 02:28:00 Emergency Wil Mcqueen [facility] 1.2.840.114 350.1.13.10 4.2.7.2.686 [id number] [facility] 2021-11-11 19:50:00 2021-11-11 23:17:00 Emergency X SUMMERDEE KUMAR [facility] [id number] [facility] 2021-11-11 19:50:00 2021-11-11 23:17:00 Emergency GenaroclaudiaDee kumar F [facility] 1.2.840.114 350.1.13.10 4.2.7.2.686 [id number] 084 [id number] [facility] 2021-11-11 00:00:00 2021-11-11 00:00:00 Orders Only Doctor Unassigned, [place] [facility] 1.2.114 350.1.13.10 4.2.7.2.686 [id number] [facility] 2021-09-11 19:42:00 2021-09-11 23:02:00 Emergency X DEE WANG [facility] [id number] [facility] 2021-09-11 19:42:00 2021-09-11 23:02:00 Emergency Dee Wang [facility] 1.284.114 350.1.13.10 4.2.7.2.686 [id number] 084 [id number] [facility] 2021-08-14 23:38:00 2021-08-15 02:29:00 Emergency X OLIVIA GARCIA [facility] [id number] [facility] 2021-08-14 23:38:00 2021-08-15 02:29:00 Emergency Olivia Garcia [facility] 1.2.114 350.1.13.10 4.2.7.2.686 [id number] 084 [id number] [facility] 2021-05-27 23:23:00 2021-05-28 04:23:00 Emergency CEM NERI [facility] [id number] [facility] 2021-05-27 23:23:00 2021-05-28 04:23:00 Emergency Cem Choi [facility] 1..114 350.1.13.10 4.2.7.2.686 [id number] 084 [id number] [facility] 2021-04-10 00:00:00 2021-04-10 00:00:00 Transition of Care Shelley Rosas 1.2.114 350.1.13.10 4.2.7.2.686 [id number] [facility] 2021-04-07 16:30:00 2021-04-08 17:45:00 Hospital Encounter Roberto Richards Jelani [facility] 1.2.840.114 350.1.13.10 4.2.7.2.686 [id number] 081 [id number] [facility] 2021-04-07 16:18:00 2021-04-07 16:18:00 Emergency X [facility] [id number] [facility] 2021-01-12 03:01:00 2021-01-12 04:56:00 Emergency Narayan Narvaez [facility] 1.2.840.114 350.1.13.10 4.2.7.2.686 [id number] 084 [id number] [facility] 2021-01-12 03:01:00 2021-01-12 03:01:00 Emergency X NARAYAN NARVAEZ [facility] [id number] [facility] 2020-12-10 17:12:00 2020-12-10 21:14:00 Emergency HassanBal sidhu [facility] 1.2.840.114 350.1.13.10 4.2.7.2.686 [id number] 084 [id number] [facility] 2020-12-10 17:12:00 2020-12-10 17:12:00 Emergency X BAL HASSAN [facility] [id number] [facility] 2020-12-04 14:50:00 2020-12-04 17:08:00 Emergency Delvinrosaura Shaynelewis [facility] 1.2.840.114 350.1.13.10 4.2.7.2.686 [id number] [id number] [facility] 2020-12-04 14:50:00 2020-12-04 17:08:00 Emergency X TREMAINE BECERRA [facility] [id number] [facility] 2020-11-03 20:44:00 2020-11-03 23:34:00 Emergency Leeanne Wise [facility] 1.2.840.114 350.1.13.10 4.2.7.2.686 [id number] [id number] [facility] 2020-11-03 20:44:00 2020-11-03 23:34:00 Emergency X LEEANNE WISE [facility] [id number] [facility] 2020-09-19 12:32:00 2020-09-19 14:15:00 Emergency ER MORA POLLOCK [facility] [id number] [facility] 2020-09-17 09:53:00 2020-09-17 11:55:00 Emergency Leeanne Wise [facility] 1.2.840.114 350.1.13.10 4.2.7.2.686 [id number] 084 [id number] [facility] 2020-09-17 09:53:00 2020-09-17 11:55:00 Emergency X LEEANNE WISE [facility] [id number] [facility] 2020-09-17 09:53:00 2020-09-17 11:55:00 Emergency Leeanne Wise [facility] 1.2.840.114 350.1.13.10 4.2.7.2.686 [id number] [id number] 2020-09-07 00:37:00 2020-09-07 01:41:00 Emergency Saleem Edward [facility] 1.2.840.114 350.1.13.10 4.2.7.2.686 [id number] [id number] [facility] 2020-09-07 00:37:00 2020-09-07 01:41:00 Emergency X Saleem EDWARD [facility] [id number] [facility] 2020-09-07 00:37:00 2020-09-07 01:41:00 Emergency Saleem Edward [facility] 1.2.840.114 350.1.13.10 4.2.7.2.686 [id number] 084 [id number] 2020-09-07 00:00:00 2020-09-07 00:00:00 Orders Only Doctor Unassigned, [place] [facility] 1.2.840.114 350.1.13.10 4.2.7.2.686 [id number] [facility] 2020-09-07 00:00:00 2020-09-07 00:00:00 Orders Only Doctor Unassigned, [place] [facility] 1.2.840.114 350.1.13.10 4.2.7.2.686 [id number] [id number] 2020-08-28 01:59:00 2020-08-28 04:40:00 Emergency Olivia Garcia [facility] 1.2.840.114 350.1.13.10 4.2.7.2.686 [id number] 084 [id number] [facility] 2020-08-28 01:59:00 2020-08-28 04:40:00 Emergency Olivia Garcia [facility] 1.2.840.114 350.1.13.10 4.2.7.2.686 [id number] 084 [id number] 2020-08-28 01:59:00 2020-08-28 01:59:00 Emergency X OLIVIA GARCIA [facility] [id number] [facility] 2020-08-14 11:48:00 2020-08-14 13:42:00 Emergency Best Taylor [facility] 1.2.840.114 350.1.13.10 4.2.7.2.686 [id number] 084 [id number] [facility] 2020-08-14 11:48:00 2020-08-14 13:42:00 Emergency Best Taylor [facility] 1.2.840.114 350.1.13.10 4.2.7.2.686 [id number] [id number] 2020-08-14 11:33:00 2020-08-14 11:33:00 Emergency BEST BORGES [facility] [id number] [facility] 2020-08-10 18:35:00 2020-08-11 00:05:00 Emergency Best Taylor [facility] 1.2.840.114 350.1.13.10 4.2.7.2.686 [id number] 084 [id number] [facility] 2020-08-10 18:35:00 2020-08-11 00:05:00 Emergency OLIVIA WAYNE [facility] [id number] [facility] 2020-08-10 18:35:00 2020-08-11 00:05:00 [facility] 1.2.840.114 350.1.13.10 4.2.7.2.686 [id number] 084 [id number] 2020-08-07 07:19:00 2020-08-07 09:02:00 Emergency Maurice [facility] 1.2.840.114 350.1.13.10 4.2.7.2.686 [id number] 084 [id number] [facility] 2020-08-07 07:19:00 2020-08-07 09:02:00 Emergency Maurice [facility] 1.2.840.114 350.1.13.10 4.2.7.2.686 [id number] 084 [id number] 2020-08-07 07:12:00 2020-08-07 07:12:00 Emergency X [facility] [id number] [facility] 2020-08-07 00:00:00 2020-08-07 00:00:00 Orders Only Doctor Unassigned, [place] [facility] 1.2.840.114 350.1.13.10 4.2.7.2.686 [id number] [id number] [facility] 2020-08-07 00:00:00 2020-08-07 00:00:00 Orders Only Doctor Unassigned, [place] [facility] 1.2.840.114 350.1.13.10 4.2.7.2.686 [id number] [id number] 2020-07-01 00:00:00 2020-07-01 00:00:00 Letter (Out) [facility] 1.2.840.114 350.1.13.10 4.2.7.2.686 [id number] 019 [id number] [facility] 2020-07-01 00:00:00 2020-07-01 00:00:00 Letter (Out) [facility] 1.2.840.114 350.1.13.10 4.2.7.2.686 [id number] 2020-06-30 17:46:00 2020-06-30 21:06:00 Emergency Abdias Robertson [facility] 1.2.840.114 350.1.13.10 4.2.7.2.686 [id number] 084 [id number] [facility] 2020-06-30 17:46:00 2020-06-30 21:06:00 Emergency X ABDIAS ROBERTSON [facility] [id number] [facility] 2020-06-30 17:46:00 2020-06-30 21:06:00 Emergency Abdias Robertson [facility] 1.2.840.114 350.1.13.10 4.2.7.2.686 [id number] [id number] 2020-06-28 16:00:00 2020-06-28 18:08:00 Emergency Narayan Narvaez [facility] 1.2.840.114 350.1.13.10 4.2.7.2.686 [id number] 084 [id number] [facility] 2020-06-28 16:00:00 2020-06-28 18:08:00 Emergency Narayan Narvaez [facility] 1.2.840.114 350.1.13.10 4.2.7.2.686 [id number] 084 [id number] 2020-06-28 16:00:00 2020-06-28 16:00:00 Emergency X NARAYAN NARVAEZ [facility] [id number] [facility] 2020-06-14 00:00:00 2020-06-14 00:00:00 Telephone [facility] 1.2.840.114 350.1.13.10 4.2.7.2.686 [id number] [facility] 2020-06-14 00:00:00 2020-06-14 00:00:00 Telephone [facility] 1.2.840.114 350.1.13.10 4.2.7.2.686 [id number] 2020-06-12 17:40:00 2020-06-12 22:05:00 Emergency Leeanne Wise [facility] 1.2.840.114 350.1.13.10 4.2.7.2.686 [id number] 084 [id number] [facility] 2020-06-12 17:40:00 2020-06-12 22:05:00 Emergency Leeanne Wise [facility] 1.2.840.114 350.1.13.10 4.2.7.2.686 [id number] 084 [id number] 2020-06-12 17:28:00 2020-06-12 17:28:00 Emergency X [facility] [id number] [facility] 2020-05-16 17:10:00 2020-05-16 19:01:00 Emergency Bushra Rios [facility] 1.2.840.114 350.1.13.10 4.2.7.2.686 [id number] [id number] [facility] 2020-05-16 17:10:00 2020-05-16 19:01:00 Emergency Bushra Rios [facility] 1.2.840.114 350.1.13.10 4.2.7.2.686 [id number] [id number] 2020-05-16 17:10:00 2020-05-16 17:10:00 Emergency X BUSHRA RIOS [facility] [id number] [facility] 2020-05-14 23:18:00 2020-05-15 02:54:00 Emergency Roberto Richards [facility] 1.2.840.114 350.1.13.10 4.2.7.2.686 [id number] 084 [id number] [facility] 2020-05-14 23:18:00 2020-05-15 02:54:00 Emergency Roberto Richards [facility] 1.2.840.114 350.1.13.10 4.2.7.2.686 [id number] [id number] 2020-05-14 23:14:00 2020-05-14 23:14:00 Emergency X ROBERTO RICHARDS [facility] [id number] [facility] 2009-07-18 05:35:00 2009-07-18 09:19:00 Emergency ER [facility] [id number] [facility] 2008-10-08 09:55:00 2008-10-08 14:19:00 Emergency ER GUMARO ALVAREZ [facility] [id number] [facility] 2008-03-26 15:21:00 2008-03-26 18:08:00 Emergency ER NEIL WILKINS [facility] [id number] [facility] 2005-05-25 06:35:00 2005-05-25 06:35:00 Outpatient CATHERINE LISA [facility]OC[facility]RA [facility] [id number] [facility] 2005-05-16 21:57:00 2005-05-16 23:40:00 Emergency ER JW [facility]O [facility] [id number] [facility] 2005-04-24 18:49:00 2005-04-24 22:40:00 Emergency ER JW SOLORZANO [facility] [id number] [facility] 2004-12-27 20:30:00 2004-12-28 01:40:00 Emergency ER SANIA SIBLEY [facility] [id number] [facility] 2003-12-07 22:40:00 2003-12-08 02:48:00 Emergency ER GINA MARTIN [facility] [id number] [facility] 2003-12-06 13:57:00 2003-12-06 18:30:00 Emergency ER YIN RIOS [facility] [id number] [facility] 2003-08-31 19:43:00 2003-08-31 22:55:00 Emergency ER KIM, GUMARO [facility] [id number] [facility] 2003-08-22 19:26:00 2003-08-22 22:10:00 Emergency ER TIN ALBERTO [facility] [id number] [facility] 2002-01-30 22:41:00 2002-01-31 01:29:00 Emergency ER ANTHONY SCHNEIDER [facility] [id number] [facility] 2001-10-28 09:15:00 2001-10-28 11:25:00 Emergency ER DARCIE MCKEON [facility] [id number] [facility] 2001-04-15 19:14:00 2001-04-15 23:10:00 Emergency ER ARLETTE ROBERT [facility] [id number] [facility] 2000-12-25 21:52:00 2000-12-26 00:15:00 Emergency ER GISELA RIOS [facility] [id number] [facility] 2000-12-23 18:51:00 2000-12-23 22:00:00 Emergency ER HUGO COFFMAN [facility] [id number] [facility] 1999-10-26 21:11:00 1999-10-27 00:20:00 Emergency ER JW SOLORZANO [facility] [id number] [facility] Results Test Description Test Time Test Comments Results Result Co mments Source [facility] [id number] 05:06:47* Test Item Value Reference Range Interpretation Comme nts TROPONIN I (test code = 9224491810) 0.001 ng/mL <=0.034 DARWIN (test code = DARWIN) [...] of biotin. Lab Interpretation (test code = 92095-9) Normal [facility] Vhl-[id number] 05:04:06* Test Item Value Reference Range Interpretation Comme nts NT-proBNP (test code = 08665-1) 110 pg/mL <=125 Lab Interpretation (test cod e = 12044-8) Normal [facility] Metabolic Panel (57522)2024-10-13 04:55:24* Test Item Value Reference Range Interpretation Comme nts NA (test code = 3092151042) 135 mmol/L 135-145 K (test code = 6252239023) 3.5 mmol/L 3.5-5.0 CL (test code = 3638069377) 104 mmol/L 98-108 CO2 TOTAL (test code = 0000542282) 25 mmol/L 23-31 AGAP (test code = 8575359235) 6 2-16 BUN (test code = 3971809524) 12 mg/dL 7-23 GLUCOSE (test code = 2761805143) 83 mg/dL 70-110 CREATININE (test code = 2160-0) 0.55 mg/dL 0.50-1.04 TOTAL BILI (test code = 7144773313) 0.2 mg/dL 0.1-1.1 CALCIUM (test code = 4310404316) 9.2 mg/dL 8.6-10.6 T PROTEIN (test code = 6557764882) 6.3 g/dL 6.3-8.2 ALBUMIN (test code = 5761152584) 3.5 g/dL 3.5-5.0 ALK PHOS (test code = 6024982154) 58 U/L 34-122 ALTv (test code = 1742-6) 12 U/L 5-35 AST(SGOT) (test code = 3433188458) 13 U/L 13-40 eGFR (test code = 08536-2) 115.4 mL/min/1.73m2 CKD-EPI eGFR (20 21). Assuming creatinine has been stable day-to-day for at least three months, the eGFR indicates Category G1 (>= 90 mL/min/1.73 m2) [facility]2025-[facility]-08 04:55:03* Test Item Value Reference Range Interpretation Comme nts LIPASE (test code = 1904359792) 80 U/L 0-220 Lab Interpretation (test cod e = 40867-8) Normal [facility]ney[facility]bc with [id number] 04:41:23* Test Item Value Reference Range Interpretation Comme nts WBC (test code = 6690-2) 10.10 4.30-11.10 RBC (test code = 789-8) 4.17 3.93-5.25 HGB (test code = 718-7) 10.7 g/dL 11.6-15.0 L HCT (test code = 4544-3) 33.3 % 35.7-45.2 L MCV (test code = 787-2) 79.9 fL 80.6-95.5 L MCH (test code = 785-6) 25.7 pg 25.9-32.8 L MCHC (test code = 786-4) 32.1 g/dL 31.6-35.1 RDW-SD (test code = 21137-3) 51.6 fL 39.0-49.9 H RDW-CV (test code = 788-0) 17.9 % 12.0-15.5 H PLT (test code = 777-3) 328 166-358 MPV (test code = 61174-4) 8.9 fL 9.5-12.9 L NRBC/100 WBC (test code = 1293229937) 0.0 0.0-10.0 NRBC x10^3 (test code = 1999648896) See_Comment [Automated messa ge] The system which generated this result transmitted reference range: 10*3/?L. The reference range was not used to interpret this result as normal/abnormal. GRAN MAT (NEUT) % (test code = 770-8) 60.6 % IMM GRAN % (test code = 3374986316) 0.60 % LYMPH % (test code = 736-9) 31.0 % MONO % (test code = 5905-5) 5.9 % EOS % (test code = 713-8) 1.5 % BASO % (test code = 706-2) 0.4 % GRAN MAT x10^3(ANC) (test code = 3094108038) 6.12 10*3/uL 1.88-7.09 IMM GRAN x10^3 (test code = 6537944053) 0.06 10*3/uL 0.00-0.06 LYMPH x10^3 (test code = 731-0) 3.13 10*3/uL 1.32-3.29 MONO x10^3 (test code = 742-7) 0.60 10*3/uL 0.33-0.92 EOS x10^3 (test code = 711-2) 0.15 10*3/uL 0.03-0.39 BASO x10^3 (test code = 704-7) 0.04 10*3/uL 0.01-0.07 Lab Interpretation (test code = 31200-7) Abnormal [facility] [id number] 03:46:00* Test Item Value Reference Range Interpretation Comme nts POCT PREG (test code = 1605) Negative On board controls acceptable with C Line (test code = 3574) Yes POCT PREG LOT # (test code = 3575) [id number] POCT PREG TEST DATE ( test code = 3576) 11/30/2025 Lab Interpretation (test cod e = 24917-3) Normal [facility] Chest pulmonary [id number] 06:33:58Exam: CT Angiography Chest with Contrast, 07/18/2024 11:00 [...] the aorta. No pathologically enlarged lymph nodes. 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 Osseous: No acute osseous finding. [facility] Abdomen pelvis w sirldize0942-02-17 06:50:04Exam: CT Abdomen and Pelvis With Contrast, 07/03/2024 10:45 PM. Ordering Physician: SANDY GARCIA.History: Right lower quadrant pain. Comparison: 06/14/2024. Technique: [...] cmleft adrenal mass is seen.Biliary Tree: Gallbladder issurgically absent. There is mild intrahepaticbiliary ductal dilatation. ?There is no pancreatic or common biliary ductdilatation. Urinary Tract: Kidneys are symmetric in size. There is no hydronephrosis orhydroureter. Peritoneal/Retroperitoneal: There is no free air or free fluid. Lymph Nodes: There is no abdominal adenopathy. Vascular: Unremarkable.Body Wall: Unremarkable. Gastrointestinal: Stomach is unremarkable. Small bowel loops areunremarkable. There is no evidence of bowel obstruction. Ap pendix isnormal. There is mild, diffuse colonic wall thickening. There is moderatecolonic stool. ? Osseous: There are degenerative changes of the spine. CT Pelvis:Genitourinary: Urinary bladder is unremarkable. Uterus is not enlarged.Hypodense, ovoid 3.0 cm left adnexal structure with thin rim is se en,likely in the ovary. Peritoneal/Extraperitoneal: There is no pelvic free fluid. ?There is nopelvic adenopathy. Osseous/Soft Tissues: Unremarkable. [facility] [id number] 05:33:00* Test Item Value Reference Range Interpretation Comme [facility] POCT PREG (test code = 1605) Negative On board controls acceptable with C Line (test code = 3574) Yes POCT PREG LOT # (test code = 3575) [id number] POCT PREG TEST DATE ( test code = 3576) 2025-06-22 Lab Interpretation (test cod e = 92591-5) Normal [facility] Metabolic Kqleq0334-04-91 04:06:42* Test Item Value Reference Range Interpretation Comme [facility] NA (test code = 1959616967) 139 mmol/L 135-145 K (test code = 6691660223) 3.5 mmol/L 3.5-5.0 CL (test code = 2110858862) 105 mmol/L 98-108 CO2 TOTAL (test code = 9515142676) 26 mmol/L 23-31 AGAP (test code = 0605738031) 8 2-16 BUN (test code = 7978613738) 5 mg/dL 7-23 L GLUCOSE (test code = 7316728197) 101 mg/dL 70-110 CREATININE (test code = 2160-0) 0.58 mg/dL 0.50-1.04 TOTAL BILI (test code = 7049725793) 0.1-1.1 L CALCIUM (test code = 9526532741) 9.3 mg/dL 8.6-10.6 T PROTEIN (test code = 2804877334) 6.8 g/dL 6.3-8.2 ALBUMIN (test code = 1567359061) 3.9 g/dL 3.5-5.0 ALK PHOS (test code = 9290184844) 74 U/L 34-122 ALTv (test code = 1742-6) 17 U/L 5-35 AST(SGOT) (test code = 5519597761) 28 U/L 13-40 eGFR (test code = 69522-1) 113.9 mL/min/1.73m2 CKD-EPI eGFR (2020). Assuming creatinine has been stable day-to-day for at least three months, the eGFR indicates Category G1 (>= 90 mL/min/1.73 m2) Lab Interpretation (test code = 94210-4) Abnormal [facility], Cceve6692-74-18 04:01:05* Test Item Value Reference Range Interpretation Comme nts LIPASE (test code = 8179857958) 80 U/L 0-220 Lab Interpretation (test cod e = 44729-3) Normal [facility] with Yqdyfqhvuibd3765-54-23 03:46:26* Test Item Value Reference Range Interpretation [...] 33.2 g/dL 31.6-35.1 RDW-SD (test code = 93105-5) 42.5 fL 39.0-49.9 RDW-CV (test code = 788-0) 14.6 % 12.0-15.5 PLT (test code = 777-3) 327 166-358 MPV (test code = 87738-8) 9.3 fL 9.5-12.9 L NRBC/100 WBC (test code = 1609806072) 0.0 0.0-10.0 NRBC x10^3 (test code = 7826316865) See_Comment [Automated messa ge] The system which generated this result transmitted reference range: 10*3/?L. The reference range was not used to interpret this result as normal/abnormal. GRAN MAT (NEUT) % (test code = 770-8) 65.7 % IMM GRAN % (test code = 0695307500) 0.50 % LYMPH % (test code = 736-9) 26.4 % MONO % (test code = 5905-5) 5.6 % EOS % (test code = 713-8) 1.4 % BASO % (test code = 706-2) 0.4 % GRAN MAT x10^3(ANC) (test code = 9652316975) 8.21 10*3/uL 1.88-7.09 H IMM GRAN x10^3 (test code = 4569178889) 0.06 10*3/uL 0.00-0.06 LYMPH x10^3 (test code = 731-0) 3.30 10*3/uL 1.32-3.29 H MONO x10^3 (test code = 742-7) 0.70 10*3/uL 0.33-0.92 EOS x10^3 (test code = 711-2) 0.17 10*3/uL 0.03-0.39 BASO x10^3 (test code = 704-7) 0.05 10*3/uL 0.01-0.07 Lab Interpretation (test code = 53988-5) [facility] [id number] 05:39:04CT ABDOMEN PELVIS W CONTRAST HISTORY: 44 [...] bony lesions.[facility]. Metabolic Panel (56158)2024-06-15 05:12:33* Test Item Value Reference Range Interpretation Comme nts NA (test code = 6076958175) 139 mmol/L 135-145 K (test code = 5019552509) 3.7 mmol/L 3.5-5.0 CL (test code = 9132117100) 109 mmol/L 98-108 H CO2 TOTAL (test code = 9231861121) 23 mmol/L 23-31 AGAP (test code = 4344901883) 7 2-16 BUN (test code = 8107704369) 6 mg/dL 7-23 L GLUCOSE (test code = 9252809589) 101 mg/dL 70-110 CREATININE (test code = 2160-0) 0.67 mg/dL 0.50-1.04 TOTAL BILI (test code = 8731485111) 0.1-1.1 L CALCIUM (test code = 6661170481) 9.4 mg/dL 8.6-10.6 T PROTEIN (test code = 4809673642) 7.0 g/dL 6.3-8.2 ALBUMIN (test code = 4920416777) 4.0 g/dL 3.5-5.0 ALK PHOS (test code = 9886558578) 87 U/L 34-122 ALTv (test code = 1742-6) 28 U/L 5-35 AST(SGOT) (test code = 2671395891) 24 U/L 13-40 eGFR (test code = 54585-9) 110.0 mL/min/1.73m2 CKD-EPI eGFR (2020). Assuming creatinine has been stable day-to-day for at least three months, the eGFR indicates Category G1 (>= 90 mL/min/1.73 m2) Lab Interpretation (test code = 41287-9) [facility] I1011-53-08 05:03:33* Test Item Value Reference Range Interpretation Comme nts TROPONIN I (test code = 5989820681) 0.000 ng/mL <=0.034 DARWIN (test code = [...] of biotin. Lab Interpretation (test code = 37931-0) Normal [facility]24-[facility]-09 04:51:35* Test Item Value Reference Range Interpretation Comme nts LIPASE (test code = 4403053348) 94 U/L 0-220 Lab Interpretation (test cod e = 02074-4) [facility]regnancy Test, Lroup2308-40-03 04:51:30* Test Item Value Reference Range Interpretation Comme nts PREG SERUM (test code = 7611229709) Negative DARWIN (test code = DARWIN) Less than 10 IU/L. ?If low titer or ectopic is suspected, resubmit specimen in 48-72 hours. [facility] with Qkgj6464-56-13 04:36:57* Test Item Value Reference Range Interpretation [...] 32.9 g/dL 31.6-35.1 RDW-SD (test code = 99218-8) 44.3 fL 39.0-49.9 RDW-CV (test code = 788-0) 15.0 % 12.0-15.5 PLT (test code = 777-3) 347 166-358 MPV (test code = 53928-9) 9.4 fL 9.5-12.9 L NRBC/100 WBC (test code = 9439861126) 0.0 0.0-10.0 NRBC x10^3 (test code = 9775956524) See_Comment [Automated messa ge] The system which generated this result transmitted reference range: 10*3/?L. The reference range was not used to interpret this result as normal/abnormal. GRAN MAT (NEUT) % (test code = 770-8) 60.2 % IMM GRAN % (test code = 1609527795) 0.40 % LYMPH % (test code = 736-9) 31.3 % MONO % (test code = 5905-5) 5.8 % EOS % (test code = 713-8) 1.8 % BASO % (test code = 706-2) 0.5 % GRAN MAT x10^3(ANC) (test code = 5072730869) 6.36 10*3/uL 1.88-7.09 IMM GRAN x10^3 (test code = 5147787751) 0.04 10*3/uL 0.00-0.06 LYMPH x10^3 (test code = 731-0) 3.30 10*3/uL 1.32-3.29 H MONO x10^3 (test code = 742-7) 0.61 10*3/uL 0.33-0.92 EOS x10^3 (test code = 711-2) 0.19 10*3/uL 0.03-0.39 BASO x10^3 (test code = 704-7) 0.05 10*3/uL 0.01-0.07 Lab Interpretation (test code = 39843-4) [facility]normal [facility]rop[facility] [id number] 07:55:17* Test Item Value Reference Range Interpretation Comme nts TROPONIN I (test code = 1039632022) 0.000 ng/mL <=0.034 DARWIN (test code = [...] of biotin. Lab Interpretation (test code = 98603-4) Normal [facility] CHEST 1 [id number] 06:16:28Exam: Chest (1 View), 06/06/2024 11:30 PM. Ordering Physician: OLIVIA GARCIA. History: Chest pain. Technique: AP view of the chest. Technical Quality: Adequate. Comparison: Chest radiograph 05/17/2024. Findings: Normal cardiac silhouette size. ?No airspace consolidation, pleuraleffusion, or pneumothorax. No acute osseous abnormality.[facility]neyPOCT [id number] 05:19:00* Test Item Value Reference Range Interpretation Comme nts POCT PREG (test code = 1605) Negative On board controls acceptable with C Line (test code = 3574) Yes POCT PREG LOT # (test code = 3575) [id number] POCT PREG TEST DATE ( test code = 3576) 04/11/2025 Lab Interpretation (test cod e = 73258-0) Normal [facility]ney[facility]rop[facility] [id number] 05:00:24* Test Item Value Reference Range Interpretation Comme nts TROPONIN I (test code = 0686835381) 0.000 ng/mL <=0.034 DARWIN (test code = [...] of biotin. Lab Interpretation (test code = 53583-7) Normal [facility]. Metabolic Panel (58421)2024-06-07 05:00:19* Test Item Value Reference Range Interpretation Comme nts NA (test code = 1406342213) 139 mmol/L 135-145 K (test code = 2453477409) 3.6 mmol/L 3.5-5.0 CL (test code = 5966280967) 108 mmol/L 98-108 CO2 TOTAL (test code = 1174163802) 22 mmol/L 23-31 L AGAP (test code = 6056074533) 9 2-16 BUN (test code = 6685614685) 10 mg/dL 7-23 GLUCOSE (test code = 2114021462) 144 mg/dL 70-110 H CREATININE (test code = 2160-0) 0.62 mg/dL 0.50-1.04 TOTAL BILI (test code = 9664778563) 0.1-1.1 L CALCIUM (test code = 8588578820) 9.2 mg/dL 8.6-10.6 T PROTEIN (test code = 9372261733) 6.5 g/dL 6.3-8.2 ALBUMIN (test code = 3485414279) 3.7 g/dL 3.5-5.0 ALK PHOS (test code = 5806969898) 69 U/L 34-122 ALTv (test code = 1742-6) 14 U/L 5-35 AST(SGOT) (test code = 1608634171) 15 U/L 13-40 eGFR (test code = 35071-8) 112.1 mL/min/1.73m2 CKD-EPI eGFR (2020). Assuming creatinine has been stable day-to-day for at least three months, the eGFR indicates Category G1 (>= 90 mL/min/1.73 m2) Lab Interpretation (test code = 19886-2) Abnormal [facility] with [id number] 04:38:25* Test Item Value Reference Range Interpretation [...] 32.8 g/dL 31.6-35.1 RDW-SD (test code = 02653-5) 44.1 fL 39.0-49.9 RDW-CV (test code = 788-0) 14.9 % 12.0-15.5 PLT (test code = 777-3) 358 166-358 MPV (test code = 22373-6) 9.4 fL 9.5-12.9 L NRBC/100 WBC (test code = 5168857314) 0.0 0.0-10.0 NRBC x10^3 (test code = 1889320164) See_Comment [Automated messa ge] The system which generated this result transmitted reference range: 10*3/?L. The reference range was not used to interpret this result as normal/abnormal. GRAN MAT (NEUT) % (test code = 770-8) 58.2 % IMM GRAN % (test code = 8451782613) 0.40 % LYMPH % (test code = 736-9) 34.1 % MONO % (test code = 5905-5) 4.7 % EOS % (test code = 713-8) 2.3 % BASO % (test code = 706-2) 0.3 % GRAN MAT x10^3(ANC) (test code = 2535832477) 5.33 10*3/uL 1.88-7.09 IMM GRAN x10^3 (test code = 7893918255) 0.04 10*3/uL 0.00-0.06 LYMPH x10^3 (test code = 731-0) 3.12 10*3/uL 1.32-3.29 MONO x10^3 (test code = 742-7) 0.43 10*3/uL 0.33-0.92 EOS x10^3 (test code = 711-2) 0.21 10*3/uL 0.03-0.39 BASO x10^3 (test code = 704-7) 0.03 10*3/uL 0.01-0.07 Lab Interpretation (test code = 78342-2) Abnormal [facility] WO [id number] 18:53:41EXAM: CT HEAD WO CONTRAST HISTORY: 44 [...] unremarkable.[facility]XR FOREARM 2 VW [id number] 04:08:39EXAM: XR HAND 3+ VW RIGHT, XR [...] swelling.[facility] HAND 3+ VW [id number] 04:08:39EXAM: XR HAND 3+ VW RIGHT, XR [...] swelling.[facility]neyXR ELBOW <3 VW [id number] 04:08:39EXAM: XR HAND 3+ VW RIGHT, XR [...] Mild diffuse soft tissue swelling. [facility]neyCT MAXILLOFACIAL/MANDIBLE WO CONTRAST 2024-05-18 03:36:27ORDERING PHYSICIAN:ALESHA ?AUFDERHEIDE CLINICAL INFORMATION: ? Facial trauma, blunt COMPARISON: [...] WO CONTRAST 2024-05-18 03:28:19ORDERING PHYSICIAN: ? ALESHA ?AUFDERHEIDE HISTORY: Neck trauma, dangerous injury mechanism [...] The visualized lung apices are clear.[facility]neyPOMO Nlpk5414-34-67 02:00:00* Test Item Value Reference Range Interpretation Comme nts POCT PREG (test code = 1605) Negative On board controls acceptable with C Line (test code = 3574) Yes Lab Interpretation (test cod e = 48974-0) Normal [facility]. Metabolic Panel (36040)2024-05-08 01:19:56* Test Item Value Reference Range Interpretation Comme nts NA (test code = 9986780603) 139 mmol/L 135-145 K (test code = 4331408404) 3.3 mmol/L 3.5-5.0 L CL (test code = 4767249944) 107 mmol/L 98-108 CO2 TOTAL (test code = 4772365930) 22 mmol/L 23-31 L AGAP (test code = 5904049817) 10 2-16 BUN (test code = 8865211268) 5 mg/dL 7-23 L GLUCOSE (test code = 2040013657) 131 mg/dL 70-110 H CREATININE (test code = 2160-0) 0.72 mg/dL 0.50-1.04 TOTAL BILI (test code = 2153462284) 0.1-1.1 L CALCIUM (test code = 8129309400) 9.3 mg/dL 8.6-10.6 T PROTEIN (test code = 4772982640) 7.0 g/dL 6.3-8.2 ALBUMIN (test code = 6150162954) 4.1 g/dL 3.5-5.0 ALK PHOS (test code = 9508597789) 76 U/L 34-122 ALTv (test code = 1742-6) 27 U/L 5-35 AST(SGOT) (test code = 6100190377) 30 U/L 13-40 eGFR (test code = 10435-5) 105.2 mL/min/1.73m2 CKD-EPI eGFR (2020). Assuming creatinine has been stable day-to-day for at least three months, the eGFR indicates Category G1 (>= 90 mL/min/1.73 m2) Lab Interpretation (test code = 85761-2) Abnormal [facility]neyTroponin [id number] 01:18:54* Test Item Value Reference Range Interpretation Comme nts TROPONIN I (test code = 4341251098) 0.003 ng/mL <=0.034 DARWIN (test code = [...] of biotin. Lab Interpretation (test code = 00204-2) Normal [facility] McKinneyMagnesium2024-11-01 01:07:50* Test Item Value Reference Range Interpretation Comme nts MAGNESIUM (test code = 8520935372) 1.7 mg/dL 1.7-2.4 Lab Interpretation (test cod e = 04026-3) Normal [facility] McKinneyLipase2024-11-01 01:07:30* Test Item Value Reference Range Interpretation Comme nts LIPASE (test code = 6136706695) 97 U/L 0-220 Lab Interpretation (test cod e = 93564-5) Normal [facility] McKinneyCb with Otwx6577-34-65 00:51:30* Test Item Value Reference Range Interpretation [...] 33.2 g/dL 31.6-35.1 RDW-SD (test code = 26416-4) 43.6 fL 39.0-49.9 RDW-CV (test code = 788-0) 14.8 % 12.0-15.5 PLT (test code = 777-3) 382 166-358 H MPV (test code = 62582-0) 9.7 fL 9.5-12.9 NRBC/100 WBC (test code = 6067492983) 0.0 0.0-10.0 NRBC x10^3 (test code = 6096250178) See_Comment [Automated messa ge] The system which generated this result transmitted reference range: 10*3/?L. The reference range was not used to interpret this result as normal/abnormal. GRAN MAT (NEUT) % (test code = 770-8) 63.3 % IMM GRAN % (test code = 9054505177) 0.40 % LYMPH % (test code = 736-9) 27.5 % MONO % (test code = 5905-5) 5.4 % EOS % (test code = 713-8) 2.9 % BASO % (test code = 706-2) 0.5 % GRAN MAT x10^3(ANC) (test code = 1228917807) 7.25 10*3/uL 1.88-7.09 H IMM GRAN x10^3 (test code = 2774039065) 0.05 10*3/uL 0.00-0.06 LYMPH x10^3 (test code = 731-0) 3.15 10*3/uL 1.32-3.29 MONO x10^3 (test code = 742-7) 0.62 10*3/uL 0.33-0.92 EOS x10^3 (test code = 711-2) 0.33 10*3/uL 0.03-0.39 BASO x10^3 (test code = 704-7) 0.06 10*3/uL 0.01-0.07 Lab Interpretation (test code = 67973-2) Abnormal [facility] or plasma cardiac troponin I panel by high sensitivity yemtay8157-25-23 17:16:00* Test Item Value Reference Range Interpretation Comme nts Troponin T High Sensitivity (test code = 13096-4) < 6.0 [facility] VjwLCD4318-76-18 17:14:00* Test Item Value Reference Range Interpretation Comme nts Aspartate Amino Transf (AST/ SGOT) (test code = XFG0254) 14 [facility] CtrBilirubin xuwde1196-43-98 17:14:00* Test Item Value Reference Range Interpretation Comme nts Total Bilirubin (test code = WKG3596) < 0.2 [facility] CtrEstimated glomerular filtration rate (GFR) qspfnhwfytdec7477-44-36 17:14:00* Test Item Value Reference Range Interpretation Comme [facility] Glomerular Filtration Rate C alc (test code = 617526949) > 60.00 [facility] CtrBUN/creatinine hqbct8264-08-83 17:14:00* Test Item Value Reference Range Interpretation Comme nts BUN/Creatinine Ratio (test c ode = 35000023) 7.3 [facility] OjoUO30827-61-89 17:14:00* Test Item Value Reference Range Interpretation Comme nts Carbon Dioxide Level (test c ode = 21778928) 22 [facility] CtrAnion gap rmoqgubxsii0246-15-61 17:14:00* Test Item Value Reference Range Interpretation Comme nts Anion Gap (test code = 60651959) 16.6 [facility] CtrCalcium nmjsq6502-27-58 17:14:00* Test Item Value Reference Range Interpretation Comme nts Calcium Level (test code = 94251821) 9.9 [facility] CtrGlobulin rnv8799-26-80 17:14:00* Test Item Value Reference Range Interpretation Comme nts Globulin (test code = 281176687) 3.1 [facility] CtrALT (SGPT) ser/njiu1161-22-22 17:14:00* Test Item Value Reference Range Interpretation Comme nts Alanine Aminotransferase (AL T/SGPT) (test code = 1742-6) 10 [facility] CtrAmylase hdxmm6282-82-17 17:14:00* Test Item Value Reference Range Interpretation Comme nts Amylase Level (test code = 1798-8) 48 [facility] TnePdihnn1980-96-01 17:14:00* Test Item Value Reference Range Interpretation Comme nts Lipase (test code = 70112156) 24 [facility] CtrALP ser/utoa7914-77-17 17:14:00* Test Item Value Reference Range Interpretation Comme nts Total Alkaline Phosphatase ( test code = 6768-6) 92 [facility] CtrSerum or plasma glucose measurement (mass/volume) 2024-04-10 17:14:00* Test Item Value Reference Range Interpretation Comme nts Random Glucose (test code = 2345-7) 109 [facility] CtrSerum or plasma urea nitrogen measurement (mass/volume)2024-04-10 17:14:00* Test Item Value Reference Range Interpretation Comme nts Blood Urea Nitrogen (test co de = 3094-0) 4 [facility] CtrAmphetamine ur gfwchf6769-79-13 17:13:00* Test Item Value Reference Range Interpretation Comme nts Urine Amphetamines Screen (t est code = 41917-2) NEGATIVE [facility] ShaAxmxuldyy1515-12-53 17:13:00* Test Item Value Reference Range Interpretation Comme nts Methadone Level (test code = ZDM7411) NEGATIVE [facility] CtrBenzodiazepines screen is0089-13-66 17:13:00* Test Item Value Reference Range Interpretation Comme nts Urine Benzodiazepines Screen (test code = 263069053) POSITIVE [facility] CtrCannabinoids (0-hlyqhtc-UXR) fqarrkqaaig2352-13-39 17:13:00* Test Item Value Reference Range Interpretation Comme nts Urine Cannabinoids (test cod e = 817827160) NEGATIVE [facility] CtrCocaine metabolite dacfxk3484-19-42 17:13:00* Test Item Value Reference Range Interpretation Comme nts Urine Cocaine Metabolite (te st code = 166060931) NEGATIVE [facility] CtrOpiates yklps6975-84-80 17:13:00* Test Item Value Reference Range Interpretation Comme nts Urine Opiates Screen (test c ode = 642480418) NEGATIVE [facility] CtrUrine hydrocodone measurement (mass/volume) 2024-04-10 17:13:00* Test Item Value Reference Range Interpretation Comme nts Hydrocodone Level (test code = 3681-4) [facility]GATIVE [facility] by confirmatory method (mass/volume)2024-04-10 17:13:00* Test Item Value Reference Range Interpretation Comme [facility] Urine Fentanyl Screen (test code = 00255-2) NEGATIVE [facility] CtrPhencyclidine (PCP) us8987-79-23 17:13:00* Test Item Value Reference Range Interpretation Comme nts Urine Phencyclidine (PCP) Le edilson (test code = 330903155) NEGATIVE [facility] CtrPropoxyphene [Mass/volume] in Guljd2715-33-46 17:13:00* Test Item Value Reference Range Interpretation Comme nts Propoxyphene Level (test cod e = 3545-1) NEGATIVE [facility] CtroxyCODONE [Mass/volume] in Zkjzx4418-15-65 17:13:00* Test Item Value Reference Range Interpretation Comme nts Oxycodone Level (test code = 72026-8) NEGATIVE [facility] CtrUrine leukocyte esterase huuazeawv6417-72-18 17:10:00* Test Item Value Reference Range Interpretation Comme nts Urine Leukocyte Esterase (te st code = 699887927) 3+ [facility] CtrRBC count ur tbge3298-53-57 17:08:00* Test Item Value Reference Range Interpretation Comme nts Urine RBC (test code = 798-9) 0-2 [facility] CtrUrine examination for white blood cells (WBC) 2024-04-10 17:08:00* Test Item Value Reference Range Interpretation Comme nts Urine WBC (test code = 591308848) >100 [facility] CtrAutomated epithelial cells count in urine sediment (number/area)2024-04-10 17:08:00* Test Item Value Reference Range Interpretation Comme nts Urine Epithelial Cells (test code = 93183-9) 6-10 [facility] CtrBacteria detection in urine sediment by light xrwmizhiqq4148-59-99 17:08:00* Test Item Value Reference Range Interpretation Comme nts Urine Bacteria (test code = 77045-5) Few [facility] CtrUrine casts detection by automated method 2024-04-10 17:08:00* Test Item Value Reference Range Interpretation Comme nts Urine Casts (test code = 94213-2) 0-2 [facility] CtrHCG ur LQ9660-50-11 17:03:00* Test Item Value Reference Range Interpretation Comme nts Urine HCG, Qualitative (test code = 2106-3) NEGATIVE [facility] CtrColor of Urine by Nwxy9173-34-02 17:03:00* Test Item Value Reference Range Interpretation Comme nts Urine Color (test code = 62838-3) Yellow [facility] CtrAppearance of Shlqy7033-96-30 17:03:00* Test Item Value Reference Range Interpretation Comme nts Urine Appearance (test code = 5767-9) Cloudy [facility] CtrUrine glucose ceckoutyu9671-67-76 17:03:00* Test Item Value Reference Range Interpretation Comme nts Urine Glucose (UA) (test cod e = 2349-9) Negative [facility] CtrBilirubin vq9538-71-89 17:03:00* Test Item Value Reference Range Interpretation Comme nts Urine Bilirubin (test code = 922662854) Negative [facility] CtrKetones th0773-45-96 17:03:00* Test Item Value Reference Range Interpretation Comme nts Urine Ketones (test code = 28108451) Negative [facility] CtrSpecific gravity of Urine by Automated test strip 2024-04-10 17:03:00* Test Item Value Reference Range Interpretation Comme nts Urine Specific [place] (test code = 48325-2) 1.006 [facility] CtrUrine blood txxjnyoww5780-39-22 17:03:00* Test Item Value Reference Range Interpretation Comme nts Urine Blood (test code = 48162-7) Nonhemolyzed Trace [facility] CtrpH ai1017-20-81 17:03:00* Test Item Value Reference Range Interpretation Comme nts Urine pH (test code = 2756-5) 6.000 [facility] CtrProtein af5171-98-61 17:03:00* Test Item Value Reference Range Interpretation Comme nts Urine Protein (test code = 64216458) Negative [facility] CtrUrobilinogen, urine, ke1863-58-32 17:03:00* Test Item Value Reference Range Interpretation Comme nts Urine Urobilinogen (test cod e = 407426648) 0.2 [facility] CtrUrine nitrate biugrxiue9119-96-52 17:03:00* Test Item Value Reference Range Interpretation Comme [facility] Urine Nitrate (test code = 08380-4) Negative [facility] CtrAbsolute eosinophil tjlme5509-32-63 17:00:00* Test Item Value Reference Range Interpretation Comme [facility] Eosinophils # (Auto) (test c ode = FND8470) 0.25 [facility] CtrRBC salcr9843-91-37 17:00:00* Test Item Value Reference Range Interpretation Comme nts Red Blood Count (test code = 95911339) 5.17 [facility] YebXodkgnqtwq2800-45-73 17:00:00* Test Item Value Reference Range Interpretation Comme nts Hematocrit (test code = 62217172) 41.9 [facility] CtrMCV (mean corpuscular volume) determination 2024-04-10 17:00:00* Test Item Value Reference Range Interpretation Comme nts Mean Corpuscular Volume (shailesh t code = 90245-6) 81.0 [facility] CtrMean corpuscular hemoglobin (MCH) determination 2024-04-10 17:00:00* Test Item Value Reference Range Interpretation Comme nts Mean Corpuscular Hemoglobin (test code = 72332671) 26.1 [facility] CtrMean corpuscular hemoglobin concentration (MCHC) kfgwfqyqcnuvg6425-22-13 17:00:00* Test Item Value Reference Range Interpretation Comme [facility] Mean Corpuscular Hemoglobin Concent (test code = 75952355) 32.2 [facility] CtrRBC distribution width coefficient of variation 2024-04-10 17:00:00* Test Item Value Reference Range Interpretation Comme [facility] Red Cell Distribution Width (test code = 86400278) 15.2 [facility] CtrPlatelet qtrwo6412-64-33 17:00:00* Test Item Value Reference Range Interpretation Comme [facility] Platelet Count (test code = 83254445) 343 [facility] CtrMean platelet nzvvfx6813-81-12 17:00:00* Test Item Value Reference Range Interpretation Comme [facility] Mean Platelet Volume (test c ode = 55726934) 9.3 [facility] CtrNeutrophils seg % unb4120-29-19 17:00:00* Test Item Value Reference Range Interpretation Comme [facility] Neutrophils (%) (Auto) (test code = 14513-1) 71.4 [facility] CtrAbsolute immature granulocyte nryiq2931-77-53 17:00:00* Test Item Value Reference Range Interpretation Comme [facility] Absolute Immature Granulocyt e (auto (test code = 60372-5) 0.[address] [facility] count (number/volume) 2024-04-10 17:00:00* Test Item Value Reference Range Interpretation Comme [facility] Neutrophils # (Auto) (test c ode = 23295-4) 8.20 [facility] CtrAbsolute lymphocyte qelnm8107-18-75 17:00:00* Test Item Value Reference Range Interpretation Comme [facility] Lymphocytes # (Auto) (test c ode = 20672-4) 2.42 [facility] CtrAbsolute basophil lavov1636-65-80 17:00:00* Test Item Value Reference Range Interpretation Comme [facility] Basophils # (Auto) (test cod e = 38083581) 0.03 [facility] CtrAbsolute NRBC pkbbz9940-68-66 17:00:00* Test Item Value Reference Range Interpretation Comme nts Nucleated Red Blood Cells # (test code = 118083598) 0 [facility] CtrCT ABDOMEN PELVIS WO QSRRBQBR2811-36-05 00:27:38 Ordering Physician: LEIGH ROJO Clinical indication: [...] present.[facility]ney[facility] Metabolic Gdoil9207-01-21 23:13:34* Test Item Value Reference Range Interpretation Comme nts NA (test code = 6879161895) 136 mmol/L 135-145 K (test code = 9835569632) 3.7 mmol/L 3.5-5.0 CL (test code = 5507427903) 106 mmol/L 98-108 CO2 TOTAL (test code = 1677151641) 20 mmol/L 23-31 L AGAP (test code = 6369060034) 10 2-16 BUN (test code = 3935322751) 6 mg/dL 7-23 L GLUCOSE (test code = 6991918246) 149 mg/dL 70-110 H CREATININE (test code = 2160-0) 0.63 mg/dL 0.50-1.04 TOTAL BILI (test code = 3592504998) 0.3 mg/dL 0.1-1.1 CALCIUM (test code = 7809844992) 9.2 mg/dL 8.6-10.6 T PROTEIN (test code = 3156774082) 7.4 g/dL 6.3-8.2 ALBUMIN (test code = 8708811849) 4.3 g/dL 3.5-5.0 ALK PHOS (test code = 6996831991) 74 U/L 34-122 ALTv (test code = 1742-6) 20 U/L 5-35 AST(SGOT) (test code = 5490374091) 22 U/L 13-40 eGFR (test code = 26692-6) 111.6 mL/min/1.73m2 CKD-EPI eGFR (2020). Assuming creatinine has been stable day-to-day for at least three months, the eGFR indicates Category G1 (>= 90 mL/min/1.73 m2) Lab Interpretation (test code = 63378-1) Abnormal [facility] McKinneyLipase, Mismn5235-93-53 23:12:53* Test Item Value Reference Range Interpretation Comme nts LIPASE (test code = 4617370225) 104 U/L 0-220 Lab Interpretation (test cod e = 97253-3) Normal [facility]neyPOCT Fzrz0009-12-71 23:01:00* Test Item Value Reference Range Interpretation Comme nts POCT PREG (test code = 1605) Negative On board controls acceptable with C Line (test code = 3574) Yes POCT PREG LOT # (test code = 3575) 257051 POCT PREG TEST DATE ( test code = 3576) Lab Interpretation (test cod e = 72215-6) Normal [facility] McKinneyCBC with Xzwxevmfugds2370-54-49 23:00:31* Test Item Value Reference Range Interpretation [...] 33.0 g/dL 31.6-35.1 RDW-SD (test code = 81482-7) 45.5 fL 39.0-49.9 RDW-CV (test code = 788-0) 15.3 % 12.0-15.5 PLT (test code = 777-3) 370 166-358 H MPV (test code = 92922-0) 9.3 fL 9.5-12.9 L NRBC/100 WBC (test code = 5675325403) 0.0 0.0-10.0 NRBC x10^3 (test code = 5319232526) See_Comment [Automated messa ge] The system which generated this result transmitted reference range: 10*3/?L. The reference range was not used to interpret this result as normal/abnormal. GRAN MAT (NEUT) % (test code = 770-8) 71.8 % IMM GRAN % (test code = 5659032611) 0.60 % LYMPH % (test code = 736-9) 20.9 % MONO % (test code = 5905-5) 4.9 % EOS % (test code = 713-8) 1.4 % BASO % (test code = 706-2) 0.4 % GRAN MAT x10^3(ANC) (test code = 8573893528) 9.75 10*3/uL 1.88-7.09 H IMM GRAN x10^3 (test code = 3319917368) 0.08 10*3/uL 0.00-0.06 H LYMPH x10^3 (test code = 731-0) 2.83 10*3/uL 1.32-3.29 MONO x10^3 (test code = 742-7) 0.66 10*3/uL 0.33-0.92 EOS x10^3 (test code = 711-2) 0.19 10*3/uL 0.03-0.39 BASO x10^3 (test code = 704-7) 0.05 10*3/uL 0.01-0.07 Lab Interpretation (test code = 94370-5) Abnormal [facility]neyCT ABDOMEN PELVIS W EGKVAOYI4218-75-33 05:07:16ORDERING PHYSICIAN:OLIVIA MUSA CLINICAL INFORMATION: ? Abdominal [...] lesions.[facility] Complete Metabolic Fsrdx4045-14-12 04:38:59* Test Item Value Reference Range Interpretation Comme nts NA (test code = 7710348911) 138 mmol/L 135-145 K (test code = 5560033594) 3.7 mmol/L 3.5-5.0 CL (test code = 3403619712) 108 mmol/L 98-108 CO2 TOTAL (test code = 9737625561) 22 mmol/L 23-31 L AGAP (test code = 3718735064) 8 2-16 BUN (test code = 8739806906) 12 mg/dL 7-23 GLUCOSE (test code = 6499991071) 98 mg/dL 70-110 CREATININE (test code = 2160-0) 0.62 mg/dL 0.50-1.04 TOTAL BILI (test code = 6267369667) 0.4 mg/dL 0.1-1.1 CALCIUM (test code = 4627307189) 8.9 mg/dL 8.6-10.6 T PROTEIN (test code = 0776019827) 7.1 g/dL 6.3-8.2 ALBUMIN (test code = 7170424465) 3.8 g/dL 3.5-5.0 ALK PHOS (test code = 3838141926) 89 U/L 34-122 ALTv (test code = 1742-6) 17 U/L 5-35 AST(SGOT) (test code = 1553729951) 22 U/L 13-40 eGFR (test code = 33530-6) 112.8 mL/min/1.73m2 CKD-EPI eGFR (2020). Assuming creatinine has been stable day-to-day for at least three months, the eGFR indicates Category G1 (>= 90 mL/min/1.73 m2) Lab Interpretation (test code = 46643-4) [facility], [id number] 04:38:58* Test Item Value Reference Range Interpretation Comme nts LIPASE (test code = 1846325095) 136 U/L 0-220 Lab Interpretation (test cod e = 93190-3) Normal [facility] with [id number] 04:19:14* Test Item Value Reference Range Interpretation [...] 32.2 g/dL 31.6-35.1 RDW-SD (test code = 70076-8) 50.2 fL 39.0-49.9 H RDW-CV (test code = 788-0) 17.3 % 12.0-15.5 H PLT (test code = 777-3) 377 166-358 H MPV (test code = 89490-3) 9.4 fL 9.5-12.9 L NRBC/100 WBC (test code = 5565046536) 0.0 0.0-10.0 NRBC x10^3 (test code = 0477663882) See_Comment [Automated messa ge] The system which generated this result transmitted reference range: 10*3/?L. The reference range was not used to interpret this result as normal/abnormal. GRAN MAT (NEUT) % (test code = 770-8) 65.3 % IMM GRAN % (test code = 3631753207) 0.40 % LYMPH % (test code = 736-9) 26.1 % MONO % (test code = 5905-5) 6.2 % EOS % (test code = 713-8) 1.6 % BASO % (test code = 706-2) 0.4 % GRAN MAT x10^3(ANC) (test code = 4489065635) 7.33 10*3/uL 1.88-7.09 H IMM GRAN x10^3 (test code = 7144869717) 0.04 10*3/uL 0.00-0.06 LYMPH x10^3 (test code = 731-0) 2.93 10*3/uL 1.32-3.29 MONO x10^3 (test code = 742-7) 0.70 10*3/uL 0.33-0.92 EOS x10^3 (test code = 711-2) 0.18 10*3/uL 0.03-0.39 BASO x10^3 (test code = 704-7) 0.05 10*3/uL 0.01-0.07 Lab Interpretation (test code = 91060-8) [facility] [id number] 03:40:00* Test Item Value Reference Range Interpretation Comme nts POCT PREG (test code = 1605) Negative On board controls acceptable with C Line (test code = 3574) Yes POCT PREG LOT # (test code = 3575) [id number] POCT PREG TEST DATE ( test code = 3576) 2024-10-13 Lab Interpretation (test cod e = 35789-7) Normal [facility]neyXR [id number] 04:35:04Ordering physician: ROBERTO RICHARDS INDICATION: Abdominal pain COMPARISON: CT of the abdomen and pelv is dated 03/09/2023 FINDINGS: Supine AP view of the abdomen and pelvis. There is no bowelobstruction or generalized constipation.[facility] [id number] 02:30:00* Test Item Value Reference Range Interpretation Comme nts POCT PREG (test code = 1605) Negative On board controls acceptable with C Line (test code = 3574) Yes POCT PREG LOT # (test code = 3575) [id number] POCT PREG TEST DATE ( test code = 3576) 2024-09-15 Lab Interpretation (test cod e = 84575-0) Normal [facility] WITH [id number] 00:05:06* Test Item Value Reference Range Interpretation [...] 34.2 g/dL 31.6-35.1 RDW-SD (test code = 33965-3) 41.5 fL 39.0-49.9 RDW-CV (test code = 788-0) 14.5 % 12.0-15.5 PLT (test code = 777-3) 384 See_Comment H [Automated messa ge] The system which generated this result transmitted reference range: 166 - 358 10*3/?L. The reference range was not used to interpret this result as normal/abnormal. MPV (test code = 63042-9) 9.6 fL 9.5-12.9 GRAN MAT (NEUT) % (test code = 770-8) 66.0 % IMM GRAN % (test code = 2502911800) 0.50 % LYMPH % (test code = 736-9) 27.4 % MONO % (test code = 5905-5) 4.6 % EOS % (test code = 713-8) 1.1 % BASO % (test code = 706-2) 0.4 % GRAN MAT x10^3(ANC) (test code = 1085118805) 7.96 10*3/uL 1.88-7.09 H IMM GRAN x10^3 (test code = 5046679710) 0.06 10*3/uL 0.00-0.06 LYMPH x10^3 (test code = 731-0) 3.30 10*3/uL 1.32-3.29 H MONO x10^3 (test code = 742-7) 0.56 10*3/uL 0.33-0.92 EOS x10^3 (test code = 711-2) 0.13 10*3/uL 0.03-0.39 BASO x10^3 (test code = 704-7) 0.05 10*3/uL 0.01-0.07 Lab Interpretation (test code = 24078-1) [facility]normal [facility]COMP[facility] METABOLIC PANEL (09976)2023-05-09 23:27:13* Test Item Value Reference Range Interpretation Comme nts NA (test code = 7607154485) 137 mmol/L 135-145 K (test code = 0841763111) 3.3 mmol/L 3.5-5.0 L CL (test code = 6742172299) 103 mmol/L 98-108 CO2 TOTAL (test code = 2862957903) 20 mmol/L 23-31 L AGAP (test code = 2379269558) 14 2-16 BUN (test code = 8969169266) 5 mg/dL 7-23 L GLUCOSE (test code = 8185846963) 146 mg/dL 70-110 H CREATININE (test code = 2162366903) 0.60 mg/dL 0.50-1.04 TOTAL BILI (test code = 8545773377) 0.3 mg/dL 0.1-1.1 CALCIUM (test code = 1543585008) 9.3 mg/dL 8.6-10.6 T PROTEIN (test code = 1838242485) 7.9 g/dL 6.3-8.2 ALBUMIN (test code = 0877477323) 4.4 g/dL 3.5-5.0 ALK PHOS (test code = 6867414515) 105 U/L 34-122 ALTv (test code = 1742-6) 38 U/L 5-35 H AST(SGOT) (test code = 7498677541) 21 U/L 13-40 eGFR (test code = 76160-9) 113.7 mL/min/1.73m2 CKD-EPI eGFR (2020). Assuming creatinine has been stable day-to-day for at least three months, the eGFR indicates Category G1 (>= 90 mL/min/1.73 m2) Lab Interpretation (test code = 03760-0) [facility]normal [facility]neyLIPASE2023-11-02 23:27:13* Test Item Value Reference Range Interpretation Comme nts LIPASE (test code = 9229774253) 142 U/L 0-220 Lab Interpretation (test cod e = 20350-4) Normal [facility]COMP. METABOLIC PANEL (29819)2023-04-30 23:41:47* Test Item Value Reference Range Interpretation Comme nts NA (test code = 8146059171) 139 mmol/L 135-145 K (test code = 7637997322) 3.3 mmol/L 3.5-5.0 L CL (test code = 1614883658) 105 mmol/L 98-108 CO2 TOTAL (test code = 9398220569) 20 mmol/L 23-31 L AGAP (test code = 3738754027) 14 2-16 BUN (test code = 3092575682) 6 mg/dL 7-23 L GLUCOSE (test code = 1593392229) 119 mg/dL 70-110 H CREATININE (test code = 8849561924) 0.59 mg/dL 0.50-1.04 TOTAL BILI (test code = 5173839188) 0.3 mg/dL 0.1-1.1 CALCIUM (test code = 7799820697) 9.7 mg/dL 8.6-10.6 T PROTEIN (test code = 2506204627) 7.6 g/dL 6.3-8.2 ALBUMIN (test code = 4390368280) 4.2 g/dL 3.5-5.0 ALK PHOS (test code = 6266665863) 78 U/L 34-122 ALTv (test code = 1742-6) 24 U/L 5-35 AST(SGOT) (test code = 6063024938) 24 U/L 13-40 eGFR (test code = 0141219779) 110.7 mL/min/1.73m2 DARWIN (test code = DARWIN) [...] imaging tests). Lab Interpretation (test code = 69836-8) Abnormal [facility] WITH [id number] 23:29:07* Test Item Value Reference Range Interpretation Comme nts WBC (test code = 6690-2) 11.56 See_Comment H [Automated messa ge] The system which generated this result transmitted reference range: 4.30 - 11.10 10*3/?L. The reference range was not used to interpret this result as normal/abnormal. RBC (test code = 789-8) 5.02 See_Comment [Automated [employer] ge] The system which generated this [...] 33.7 g/dL 31.6-35.1 RDW-SD (test code = 83436-1) 41.5 fL 39.0-49.9 RDW-CV (test code = 788-0) 14.3 % 12.0-15.5 PLT (test code = 777-3) 335 See_Comment [Automated [employer] ge] The system which generated this result transmitted reference range: 166 - 358 10*3/?L. The reference range was not used to interpret this result as normal/abnormal. MPV (test code = 41354-2) 9.7 fL 9.5-12.9 NRBC/100 WBC (test code = 1244064902) 0.0 See_Comment [Automated [employer] ssage] The system which generated this result transmitted reference range: 0.0 - 10.0 /100 WBCs. The reference range was not used to interpret this result as normal/abnormal. NRBC x10^3 (test code = 1207583769) See_Comment [Automated [employer] ge] The system which generated this result transmitted reference range: 10*3/?L. The reference range was not used to interpret this result as normal/abnormal. GRAN MAT (NEUT) % (test code = 770-8) 65.7 % IMM GRAN % (test code = 6657568734) 0.50 % LYMPH % (test code = 736-9) 25.4 % MONO % (test code = 5905-5) 6.7 % EOS % (test code = 713-8) 1.2 % BASO % (test code = 706-2) 0.5 % GRAN MAT x10^3(ANC) (test code = 2241024583) 7.59 10*3/uL 1.88-7.09 H IMM GRAN x10^3 (test code = 7230445639) 0.06 10*3/uL 0.00-0.06 LYMPH x10^3 (test code = 731-0) 2.94 10*3/uL 1.32-3.29 MONO x10^3 (test code = 742-7) 0.77 10*3/uL 0.33-0.92 EOS x10^3 (test code = 711-2) 0.14 10*3/uL 0.03-0.39 BASO x10^3 (test code = 704-7) 0.06 10*3/uL 0.01-0.07 Lab Interpretation (test code = 04489-5) [facility] [id number] 22:59:00* Test Item Value Reference Range Interpretation Comme nts POCT PREG (test code = 1605) Negative On board controls acceptable with C Line (test code = 3574) Yes POCT PREG LOT # (test code = 3575) [id number] POCT PREG TEST DATE ( test code = 3576) 07/10/2024 Lab Interpretation (test cod e = 98476-2) [facility]neyTROPONIN [id number] 02:36:34* Test Item Value Reference Range Interpretation Comme nts TROPONIN I (test code = 7767744920) 0.000 ng/mL <=0.034 DARWIN (test code = [...] of biotin. Lab Interpretation (test code = 73108-3) [facility]neyN-TERMINAL [id number] 02:34:17* Test Item Value Reference Range Interpretation Comme nts NT-proBNP (test code = 06443-6) 40 pg/mL <=125 Lab Interpretation (test cod e = 83849-9) Normal [facility]neyACTIVATED PARTIAL THRMPLAS [id number] 02:33:37* Test Item Value Reference Range Interpretation Comme nts APTT Patient (test code = 3173-2) 25 See_Comment [Automated message] The system which generated this result transmitted reference range: 23 - 38 Seconds. The reference range was not used to interpret this result as normal/abnormal. DARWIN (test code = DARWIN) The [facility] patient population mean normal value for aPTT is 30 seconds. Lab Interpretation (test code = 74830-3) Normal [facility] McKinneyPROTHROMBIN TIME / [id number] 02:31:36* Test Item Value Reference Range Interpretation [...] the indications. Lab Interpretation (test code = 28064-2) [facility]neyCOMP. METABOLIC PANEL (81953)2023-04-17 02:24:56* Test Item Value Reference Range Interpretation Comme nts NA (test code = 0727263883) 142 mmol/L 135-145 K (test code = 4386610696) 3.1 mmol/L 3.5-5.0 L CL (test code = 3623485403) 108 mmol/L 98-108 CO2 TOTAL (test code = 4768677173) 20 mmol/L 23-31 L AGAP (test code = 8714516371) 14 2-16 BUN (test code = 0938375788) 4 mg/dL 7-23 L GLUCOSE (test code = 5599555358) 107 mg/dL 70-110 CREATININE (test code = 7672726791) 0.61 mg/dL 0.50-1.04 TOTAL BILI (test code = 7703222502) 0.2 mg/dL 0.1-1.1 CALCIUM (test code = 8743028537) 9.1 mg/dL 8.6-10.6 T PROTEIN (test code = 4339367652) 7.0 g/dL 6.3-8.2 ALBUMIN (test code = 0420920187) 3.9 g/dL 3.5-5.0 ALK PHOS (test code = 9174821165) 69 U/L 34-122 ALTv (test code = 1742-6) 21 U/L 5-35 AST(SGOT) (test code = 9665177204) 21 U/L 13-40 eGFR (test code = 0808395034) 106.5 mL/min/1.73m2 DARWIN (test code = DARWIN) [...] imaging tests). Lab Interpretation (test code = 99235-9) [facility]neyL[facility]2023-10-11 02:24:56* Test Item Value Reference Range Interpretation Comme nts LIPASE (test code = 3038583918) 104 U/L 0-220 Lab Interpretation (test cod e = 17139-6) [facility]neyCBC WITH [id number] 02:13:31* Test Item Value Reference Range Interpretation Comme nts WBC (test code = 6690-2) 10.74 See_Comment [Automated [employer]] The system which generated this result transmitted reference range: 4.30 - 11.10 10*3/?L. The reference range was not used to interpret this result as normal/abnormal. RBC (test code = 789-8) 4.75 See_Comment [Automated [employer]] The system which generated this result transmitted [...] 34.5 g/dL 31.6-35.1 RDW-SD (test code = 48085-0) 39.1 fL 39.0-49.9 RDW-CV (test code = 788-0) 13.5 % 12.0-15.5 PLT (test code = 777-3) 324 See_Comment [Automated [employer]] The system which generated this result transmitted reference range: 166 - 358 10*3/?L. The reference range was not used to interpret this result as normal/abnormal. MPV (test code = 64462-9) 9.3 fL 9.5-12.9 L NRBC/100 WBC (test code = 2305507543) 0.0 See_Comment [Automated me ssage] The system which generated this result transmitted reference range: 0.0 - 10.0 /100 WBCs. The reference range was not used to interpret this result as normal/abnormal. NRBC x10^3 (test code = 5155824012) See_Comment [Automated messa ge] The system which generated this result transmitted reference range: 10*3/?L. The reference range was not used to interpret this result as normal/abnormal. GRAN MAT (NEUT) % (test code = 770-8) 65.2 % IMM GRAN % (test code = 2786993776) 0.40 % LYMPH % (test code = 736-9) 26.5 % MONO % (test code = 5905-5) 5.8 % EOS % (test code = 713-8) 1.7 % BASO % (test code = 706-2) 0.4 % GRAN MAT x10^3(ANC) (test code = 8525832251) 7.01 10*3/uL 1.88-7.09 IMM GRAN x10^3 (test code = 0066488974) 0.04 10*3/uL 0.00-0.06 LYMPH x10^3 (test code = 731-0) 2.85 10*3/uL 1.32-3.29 MONO x10^3 (test code = 742-7) 0.62 10*3/uL 0.33-0.92 EOS x10^3 (test code = 711-2) 0.18 10*3/uL 0.03-0.39 BASO x10^3 (test code = 704-7) 0.04 10*3/uL 0.01-0.07 Lab Interpretation (test code = 19960-9) Abnormal [facility] [id number] 02:11:00* Test Item Value Reference Range Interpretation Comme nts POCT PREG (test code = 1605) Negative On board controls acceptable with C Line (test code = 3574) Yes POCT PREG LOT # (test code = 3575) [id number] POCT PREG TEST DATE ( test code = 3576) 2024-09-04 Lab Interpretation (test cod e = 45857-3) [facility]neyTROPONIN [id number] 23:59:14* Test Item Value Reference Range Interpretation Comme nts TROPONIN I (test code = 8500592844) 0.000 ng/mL <=0.034 DARWIN (test code = [...] of biotin. Lab Interpretation (test code = 48991-6) [facility]neyCOMP. METABOLIC PANEL (67903)2023-04-08 23:47:52* Test Item Value Reference Range Interpretation Comme nts NA (test code = 0252458021) 138 mmol/L 135-145 K (test code = 4726656665) 3.4 mmol/L 3.5-5.0 L CL (test code = 2405721835) 103 mmol/L 98-108 CO2 TOTAL (test code = 4523823970) 22 mmol/L 23-31 L AGAP (test code = 3898966509) 13 2-16 BUN (test code = 0527363305) 6 mg/dL 7-23 L GLUCOSE (test code = 6566341506) 106 mg/dL 70-110 CREATININE (test code = 4643416882) 0.91 mg/dL 0.50-1.04 TOTAL BILI (test code = 6657444303) 0.2 mg/dL 0.1-1.1 CALCIUM (test code = 7759774099) 8.7 mg/dL 8.6-10.6 T PROTEIN (test code = 6330962505) 7.4 g/dL 6.3-8.2 ALBUMIN (test code = 2257596897) 4.1 g/dL 3.5-5.0 ALK PHOS (test code = 2951851566) 71 U/L 34-122 ALTv (test code = 1742-6) 28 U/L 5-35 AST(SGOT) (test code = 7891259968) 28 U/L 13-40 eGFR (test code = 4823338432) 67.2 mL/min/1.73m2 DARWIN (test code = DARWIN) [...] imaging tests). Lab Interpretation (test code = 19196-6) [facility]neyMAGNESIUM2023-10-02 23:47:52* Test Item Value Reference Range Interpretation Comme nts MAGNESIUM (test code = 8787463969) 2.0 mg/dL 1.7-2.4 Lab Interpretation (test cod e = 71517-5) [facility]neyLIP[facility]2023-10-02 23:47:52* Test Item Value Reference Range Interpretation Comme nts LIPASE (test code = 2275121160) 74 U/L 0-220 Lab Interpretation (test cod e = 18962-6) Normal [facility] WITH [id number] 23:36:30* Test Item Value Reference Range Interpretation [...] 34.5 g/dL 31.6-35.1 RDW-SD (test code = 39573-9) 39.3 fL 39.0-49.9 RDW-CV (test code = 788-0) 13.6 % 12.0-15.5 PLT (test code = 777-3) 305 See_Comment [Automated messa ge] The system which generated this result transmitted reference range: 166 - 358 10*3/?L. The reference range was not used to interpret this result as normal/abnormal. MPV (test code = 96474-9) 9.6 fL 9.5-12.9 NRBC/100 WBC (test code = 5314574717) 0.0 See_Comment [Automated [employer] ssage] The system which generated this result transmitted reference range: 0.0 - 10.0 /100 WBCs. The reference range was not used to interpret this result as normal/abnormal. NRBC x10^3 (test code = 7272165657) See_Comment [Automated messa ge] The system which generated this result transmitted reference range: 10*3/?L. The reference range was not used to interpret this result as normal/abnormal. GRAN MAT (NEUT) % (test code = 770-8) 66.5 % IMM GRAN % (test code = 5409670907) 0.30 % LYMPH % (test code = 736-9) 25.3 % MONO % (test code = 5905-5) 5.2 % EOS % (test code = 713-8) 2.3 % BASO % (test code = 706-2) 0.4 % GRAN MAT x10^3(ANC) (test code = 2123460634) 6.61 10*3/uL 1.88-7.09 IMM GRAN x10^3 (test code = 0686587069) 0.03 10*3/uL 0.00-0.06 LYMPH x10^3 (test code = 731-0) 2.52 10*3/uL 1.32-3.29 MONO x10^3 (test code = 742-7) 0.52 10*3/uL 0.33-0.92 EOS x10^3 (test code = 711-2) 0.23 10*3/uL 0.03-0.39 BASO x10^3 (test code = 704-7) 0.04 10*3/uL 0.01-0.07 Lab Interpretation (test code = 95389-8) Abnormal [facility] [id number] 02:51:00* Test Item Value Reference Range Interpretation Comme nts POCT PREG (test code = 1605) Negative On board controls acceptable with C Line (test code = 3574) Yes POCT PREG LOT # (test code = 3575) [id number] POCT PREG TEST DATE ( test code = 3576) 07/10/2024 Lab Interpretation (test cod e = 12010-4) Normal [facility] [id number] 03:26:00* Test Item Value Reference Range Interpretation Comme nts POCT PREG (test code = 1605) Negative On board controls acceptable with C Line (test code = 3574) Yes POCT PREG LOT # (test code = 3575) [id number] POCT PREG TEST DATE ( test code = 3576) Lab Interpretation (test cod e = 21650-5) [facility]23-[facility]-11 22:35:38* Test Item Value Reference Range Interpretation Comme nts LIPASE (test code = 8992627811) 2049 U/L 0-220 H Lab Interpretation (test cod e = 42956-0) Abnormal [facility] WITH [id number] 22:30:10* Test Item Value Reference Range Interpretation [...] 34.6 g/dL 31.6-35.1 RDW-SD (test code = 92318-9) 42.7 fL 39.0-49.9 RDW-CV (test code = 788-0) 14.6 % 12.0-15.5 PLT (test code = 777-3) 331 See_Comment [Automated messa ge] The system which generated this result transmitted reference range: 166 - 358 10*3/?L. The reference range was not used to interpret this result as normal/abnormal. MPV (test code = 11632-7) 9.7 fL 9.5-12.9 NRBC/100 WBC (test code = 6500175281) 0.0 See_Comment [Automated me ssage] The system which generated this result transmitted reference range: 0.0 - 10.0 /100 WBCs. The reference range was not used to interpret this result as normal/abnormal. NRBC x10^3 (test code = 3424429870) See_Comment [Automated messa ge] The system which generated this result transmitted reference range: 10*3/?L. The reference range was not used to interpret this result as normal/abnormal. GRAN MAT (NEUT) % (test code = 770-8) 65.7 % IMM GRAN % (test code = 1211847923) 0.50 % LYMPH % (test code = 736-9) 26.5 % MONO % (test code = 5905-5) 5.4 % EOS % (test code = 713-8) 1.5 % BASO % (test code = 706-2) 0.4 % GRAN MAT x10^3(ANC) (test code = 6533824064) 8.05 10*3/uL 1.88-7.09 H IMM GRAN x10^3 (test code = 4720877821) 0.06 10*3/uL 0.00-0.06 LYMPH x10^3 (test code = 731-0) 3.24 10*3/uL 1.32-3.29 MONO x10^3 (test code = 742-7) 0.66 10*3/uL 0.33-0.92 EOS x10^3 (test code = 711-2) 0.18 10*3/uL 0.03-0.39 BASO x10^3 (test code = 704-7) 0.05 10*3/uL 0.01-0.07 Lab Interpretation (test code = 78945-6) [facility]OL[facility] PAN[facility] (09456)2023-02-15 22:27:47* Test Item Value Reference Range Interpretation Comme nts NA (test code = 5123410562) 138 mmol/L 135-145 K (test code = 4363652324) 3.7 mmol/L 3.5-5.0 CL (test code = 7149366134) 105 mmol/L 98-108 CO2 TOTAL (test code = 7076838983) 23 mmol/L 23-31 AGAP (test code = 0381148428) 10 2-16 BUN (test code = 6961265241) 6 mg/dL 7-23 L GLUCOSE (test code = 9375127185) 92 mg/dL 70-110 CREATININE (test code = 4721043135) 0.77 mg/dL 0.50-1.04 TOTAL BILI (test code = 6569853695) 0.7 mg/dL 0.1-1.1 CALCIUM (test code = 9354617800) 9.0 mg/dL 8.6-10.6 T PROTEIN (test code = 5587686738) 7.5 g/dL 6.3-8.2 ALBUMIN (test code = 9877582971) 4.0 g/dL 3.5-5.0 ALK PHOS (test code = 8375540545) 101 U/L 34-122 ALTv (test code = 1742-6) 25 U/L 5-35 AST(SGOT) (test code = 5310373169) 36 U/L 13-40 eGFR (test code = 6665568880) 81.8 mL/min/1.73m2 DARWIN (test code = DARWIN) [...] imaging tests). Lab Interpretation (test code = 27638-2) [facility]neyD-RJSJT5102-72-68 20:56:28* Test Item Value Reference Range Interpretation Comments D-DIMER (test code = 5018132211) 0.44 See_Comment H [Automated message] The system [...] a diagnosis. Lab Interpretation (test code = 28808-1) [facility]TR[facility] [id number] 01:15:16* Test Item Value Reference Range Interpretation Comments TROPONIN I (test code = 8205224951) 0.001 ng/mL See_Comment [Automated message] The system [...] of biotin. Lab Interpretation (test code = 61455-5) [facility]TR[facility] [id number] 22:52:31* Test Item Value Reference Range Interpretation Comments TROPONIN I (test code = 3139416865) 0.001 ng/mL See_Comment [Automated message] The system [...] of biotin. Lab Interpretation (test code = 82688-1) [facility]neyN-[facility]MINAL [id number] 22:49:33* Test Item Value Reference Range Interpretation Comme nts NT-proBNP (test code = 9818922224) 145 pg/mL See_Comment H [Automated message] The system which generated this result transmitted reference range: <=125. The reference range was not used to interpret this result as normal/abnormal. DARWIN (test code = DARWIN) Biotin has been reported to cause a negative bias, interpret results relative to patient's use of biotin. Lab Interpretation (test code = 63961-6) [facility] (NA, K, CL, CO2, GLUCOSE, BUN, CREATININE, CA)2022-01-09 22:40:32* Test Item Value Reference Range Interpretation Comme nts NA (test code = 2037453417) 142 mmol/L 135-145 K (test code = 9375967724) 3.3 mmol/L 3.5-5.0 L CL (test code = 7837045910) 109 mmol/L 98-108 H CO2 TOTAL (test code = 2976887992) 22 mmol/L 23-31 L AGAP (test code = 0014877973) 2-16 BUN (test code = 8738821060) 9 mg/dL 7-23 GLUCOSE (test code = 4678799413) 116 mg/dL 70-110 H CREATININE (test code = 0947682549) 0.69 mg/dL 0.50-1.04 CALCIUM (test code = 1969762587) 9.2 mg/dL 8.6-10.6 eGFR (test code = 5796502824) mL/min/1.73m2 DARWIN (test code = DARWIN) Association [...] imaging tests). Lab Interpretation (test code = 48496-6) Abnormal [facility] WITH [id number] 22:29:09* Test Item Value Reference Range Interpretation Comme nts WBC (test code = 6690-2) See_Comment [Automated messa ge] The system which generated this result transmitted reference range: 4.30 - 11.10 10*3/?L. The reference range was not used to interpret this result as normal/abnormal. RBC (test code = 789-8) See_Comment [Automated [employer]] The system which generated this [...] 34.4 g/dL 31.6-35.1 RDW-SD (test code = 85757-8) 40.7 fL 39.0-49.9 RDW-CV (test code = 788-0) 14.1 % 12.0-15.5 PLT (test code = 777-3) See_Comment [Automated [employer]] The system which generated this result transmitted reference range: 166 - 358 10*3/?L. The reference range was not used to interpret this result as normal/abnormal. MPV (test code = 64006-8) 9.6 fL 9.5-12.9 NRBC/100 WBC (test code = 1876855368) See_Comment [Automated [email or web address] ssage] The system which generated this result transmitted reference range: 0.0 - 10.0 /100 WBCs. The reference range was not used to interpret this result as normal/abnormal. NRBC x10^3 (test code = 1438092281) <0.01 See_Comment [Automated [employer]] The system which generated this result transmitted reference range: 10*3/?L. The reference range was not used to interpret this result as normal/abnormal. GRAN MAT (NEUT) % (test code = 770-8) 54.7 % IMM GRAN % (test code = 9174014324) 0.40 % LYMPH % (test code = 736-9) 33.8 % MONO % (test code = 5905-5) 7.1 % EOS % (test code = 713-8) 3.3 % BASO % (test code = 706-2) 0.7 % GRAN MAT x10^3(ANC) (test code = 1316689172) 4.87 10*3/uL 1.88-7.09 IMM GRAN x10^3 (test code = 6241985388) 0.04 10*3/uL 0.00-0.06 LYMPH x10^3 (test code = 731-0) 3.01 10*3/uL 1.32-3.29 MONO x10^3 (test code = 742-7) 0.63 10*3/uL 0.33-0.92 EOS x10^3 (test code = 711-2) 0.29 10*3/uL 0.03-0.39 BASO x10^3 (test code = 704-7) 0.06 10*3/uL 0.01-0.07 Lab Interpretation (test code = 18645-8) [facility] [id number] 06:45:45* Test Item Value Reference Range Interpretation Comments TROPONIN I (test code = 8861112886) 0.000 ng/mL See_Comment [Automated message] The system [...] of biotin. Lab Interpretation (test code = 57938-2) Normal [facility] [id number] 05:00:55 * Test Item Value Reference Range Interpretation Comme nts TSH (test code = 7310348230) See_Comment [Automated [employer]] The system which generated this result transmitted reference range: 0.45 - 4.70 mIU/L. The reference range was not used to interpret this result as normal/abnormal. Lab Interpretation (test code = 31258-3) Normal [facility] [id number] 04:47:50* Test Item Value Reference Range Interpretation Comme nts FREE T4 (test code = 5778874290) See_Comment [Automated [employer]] The system which generated this result transmitted reference range: 0.78 - 2.20 ng/dL:. The reference range was not used to interpret this result as normal/abnormal. Lab Interpretation (test code = 84654-2) Normal [facility] [id number] 04:47:10* Test Item Value Reference Range Interpretation Comme nts FREE T3 (test code = 6164859151) 4.37 pg/mL 2.77-5.27 Lab Interpretation (test cod e = 23587-2) Normal [facility] [id number] 04:42:07* Test Item Value Reference Range Interpretation Comments TROPONIN I (test code = 1485130080) 0.001 ng/mL See_Comment [Automated message] The system [...] of biotin. Lab Interpretation (test code = 83614-4) Normal [facility]. METABOLIC PANEL (92656)2021-12-14 04:30:28* Test Item Value Reference Range Interpretation Comme nts NA (test code = 2247927724) 141 mmol/L 135-145 K (test code = 1071681877) 3.6 mmol/L 3.5-5.0 CL (test code = 9351992929) 111 mmol/L 98-108 H CO2 TOTAL (test code = 9154232627) 19 mmol/L 23-31 L AGAP (test code = 3901770549) 2-16 BUN (test code = 4489564727) 15 mg/dL 7-23 GLUCOSE (test code = 9631508081) 113 mg/dL 70-110 H CREATININE (test code = 8899580154) 1.05 mg/dL 0.50-1.04 H TOTAL BILI (test code = 5316581483) 0.2 mg/dL 0.1-1.1 CALCIUM (test code = 5298803324) 9.8 mg/dL 8.6-10.6 T PROTEIN (test code = 5032257665) 6.8 g/dL 6.3-8.2 ALBUMIN (test code = 3897172871) 4.2 g/dL 3.5-5.0 ALK PHOS (test code = 7272415219) 73 U/L 34-122 ALTv (test code = 1742-6) 16 U/L 5-35 AST(SGOT) (test code = 5780174452) 19 U/L 13-40 eGFR (test code = 8916166828) mL/min/1.73m2 DARWIN (test code = DARWIN) Association [...] imaging tests). Lab Interpretation (test code = 82583-6) [facility] 04:29:48* Test Item Value Reference Range Interpretation Comme nts LIPASE (test code = 1669257015) 225 U/L 0-220 H Lab Interpretation (test cod e = 43346-7) [facility]normal [facility]PO[facility] [id number] 04:20:00* Test Item Value Reference Range Interpretation Comme nts POCT PREG (test code = 1605) negative On board controls acceptable with C Line (test code = 3574) present POCT PREG LOT # (test code = 3575) [id number] POCT PREG TEST DATE ( test code = 3576) 2023-05-07 Lab Interpretation (test cod e = 78102-1) Normal [facility]CBC WITH [id number] 04:01:25* Test Item Value Reference Range Interpretation Comme nts WBC (test code = 6690-2) See_Comment [Automated [employer]] The system which generated this result transmitted reference range: 4.30 - 11.10 10*3/?L. The reference range was not used to interpret this result as normal/abnormal. RBC (test code = 789-8) See_Comment H [Automated [employer]] The system which generated this result transmitted [...] 34.3 g/dL 31.6-35.1 RDW-SD (test code = 68956-7) 39.5 fL 39.0-49.9 RDW-CV (test code = 788-0) 13.6 % 12.0-15.5 PLT (test code = 777-3) See_Comment [Automated messa ge] The system which generated this result transmitted reference range: 166 - 358 10*3/?L. The reference range was not used to interpret this result as normal/abnormal. MPV (test code = 64727-1) 9.9 fL 9.5-12.9 NRBC/100 WBC (test code = 5658227279) See_Comment [Automated [employer] ssage] The system which generated this result transmitted reference range: 0.0 - 10.0 /100 WBCs. The reference range was not used to interpret this result as normal/abnormal. NRBC x10^3 (test code = 6391263962) <0.01 See_Comment [Automated [employer]] The system which generated this result transmitted reference range: 10*3/?L. The reference range was not used to interpret this result as normal/abnormal. GRAN MAT (NEUT) % (test code = 770-8) 51.5 % IMM GRAN % (test code = 7849429158) 0.50 % LYMPH % (test code = 736-9) 35.8 % MONO % (test code = 5905-5) 9.4 % EOS % (test code = 713-8) 2.2 % BASO % (test code = 706-2) 0.6 % GRAN MAT x10^3(ANC) (test code = 9515874374) 5.37 10*3/uL 1.88-7.09 IMM GRAN x10^3 (test code = 7529269259) 0.05 10*3/uL 0.00-0.06 LYMPH x10^3 (test code = 731-0) 3.73 10*3/uL 1.32-3.29 H MONO x10^3 (test code = 742-7) 0.98 10*3/uL 0.33-0.92 H EOS x10^3 (test code = 711-2) 0.23 10*3/uL 0.03-0.39 BASO x10^3 (test code = 704-7) 0.06 10*3/uL 0.01-0.07 Lab Interpretation (test code = 72843-5) Abnormal [facility] [id number] 04:04:13* Test Item Value Reference Range Interpretation Comments TROPONIN I (test code = 6038572206) 0.001 ng/mL See_Comment [Automated message] The system [...] of biotin. Lab Interpretation (test code = 59440-4) Normal [facility]neyPOM[facility] [id number] 02:56:00* Test Item Value Reference Range Interpretation Comme nts POCT PREG (test code = 1605) negative On board controls acceptable with C Line (test code = 3574) present POCT PREG LOT # (test code = 3575) [id number] POCT PREG TEST DATE ( test code = 3576) 2023-04-06 Lab Interpretation (test cod e = 17069-8) Normal [facility] [id number] 02:15:30* Test Item Value Reference Range Interpretation Comments TROPONIN I (test code = 9044121580) 0.000 ng/mL See_Comment [Automated message] The system [...] of biotin. Lab Interpretation (test code = 73209-7) Normal [facility]neyN-TERMINAL [id number]-JBH1182-02-08 02:12:14* Test Item Value Reference Range Interpretation Comme nts NT-proBNP (test code = 5777122393) 109 pg/mL See_Comment [Automated message] The system which generated this result transmitted reference range: <=125. The reference range was not used to interpret this result as normal/abnormal. DARWIN (test code = DARWIN) Biotin has been reported to cause a negative bias, interpret results relative to patient's use of biotin. Lab Interpretation (test code = 54750-6) Normal [facility]COMP. METABOLIC PANEL (19661)2021-11-12 02:04:12* Test Item Value Reference Range Interpretation Comme nts NA (test code = 4489417328) 140 mmol/L 135-145 K (test code = 4854721742) 4.0 mmol/L 3.5-5.0 CL (test code = 8963076335) 111 mmol/L 98-108 H CO2 TOTAL (test code = 2446019319) 17 mmol/L 23-31 L AGAP (test code = 0905551927) 2-16 BUN (test code = 7893699069) 9 mg/dL 7-23 GLUCOSE (test code = 8620892246) 105 mg/dL 70-110 CREATININE (test code = 8564965721) 0.72 mg/dL 0.50-1.04 TOTAL BILI (test code = 8948753824) 0.4 mg/dL 0.1-1.1 CALCIUM (test code = 2963666765) 9.3 mg/dL 8.6-10.6 T PROTEIN (test code = 8559802495) 6.6 g/dL 6.3-8.2 ALBUMIN (test code = 7857627045) 4.0 g/dL 3.5-5.0 ALK PHOS (test code = 0128923143) 70 U/L 34-122 ALTv (test code = 1742-6) 19 U/L 5-35 AST(SGOT) (test code = 6635076162) 21 U/L 13-40 eGFR (test code = 0545884221) mL/min/1.73m2 DARWIN (test code = DARWIN) Association [...] imaging tests). Lab Interpretation (test code = 76479-4) [facility]normal [facility] 02:03:32* Test Item Value Reference Range Interpretation Comme nts LIPASE (test code = 0187337540) 173 U/L 0-220 Lab Interpretation (test cod e = 83048-9) Normal [facility] WITH [id number] 01:43:53* Test Item Value Reference Range Interpretation [...] 33.7 g/dL 31.6-35.1 RDW-SD (test code = 40465-1) 41.3 fL 39.0-49.9 RDW-CV (test code = 788-0) 14.3 % 12.0-15.5 PLT (test code = 777-3) See_Comment [Automated messa ge] The system which generated this result transmitted reference range: 166 - 358 10*3/?L. The reference range was not used to interpret this result as normal/abnormal. MPV (test code = 65062-8) 9.7 fL 9.5-12.9 NRBC/100 WBC (test code = 1421983196) See_Comment [Automated [employer] ssage] The system which generated this result transmitted reference range: 0.0 - 10.0 /100 WBCs. The reference range was not used to interpret this result as normal/abnormal. NRBC x10^3 (test code = 0225287010) <0.01 See_Comment [Automated messa ge] The system which generated this result transmitted reference range: 10*3/?L. The reference range was not used to interpret this result as normal/abnormal. GRAN MAT (NEUT) % (test code = 770-8) 62.6 % IMM GRAN % (test code = 3365676245) 0.50 % LYMPH % (test code = 736-9) 27.0 % MONO % (test code = 5905-5) 6.5 % EOS % (test code = 713-8) 2.9 % BASO % (test code = 706-2) 0.5 % GRAN MAT x10^3(ANC) (test code = 2198424071) 6.30 10*3/uL 1.88-7.09 IMM GRAN x10^3 (test code = 7265640502) 0.05 10*3/uL 0.00-0.06 LYMPH x10^3 (test code = 731-0) 2.71 10*3/uL 1.32-3.29 MONO x10^3 (test code = 742-7) 0.65 10*3/uL 0.33-0.92 EOS x10^3 (test code = 711-2) 0.29 10*3/uL 0.03-0.39 BASO x10^3 (test code = 704-7) 0.05 10*3/uL 0.01-0.07 Lab Interpretation (test code = 59723-2) [facility] [id number] 02:21:00* Test Item Value Reference Range Interpretation Comme nts POCT PREG (test code = 1605) Negative On board controls acceptable with C Line (test code = 3574) Present Lab Interpretation (test cod e = 35956-9) Normal [facility]neyComplete Metabolic [id number] 02:05:50* Test Item Value Reference Range Interpretation Comme nts NA (test code = 8713024138) 137 mmol/L 135-145 K (test code = 4260732005) 3.9 mmol/L 3.5-5.0 CL (test code = 1690736685) 109 mmol/L 98-108 H CO2 TOTAL (test code = 0064087284) 19 mmol/L 23-31 L AGAP (test code = 8047287228) 2-16 BUN (test code = 6286032949) 10 mg/dL 7-23 GLUCOSE (test code = 3622591931) 101 mg/dL 70-110 CREATININE (test code = 5099383937) 0.80 mg/dL 0.50-1.04 TOTAL BILI (test code = 6136452164) 0.3 mg/dL 0.1-1.1 CALCIUM (test code = 7622967839) 8.8 mg/dL 8.6-10.6 T PROTEIN (test code = 5031825191) 6.6 g/dL 6.3-8.2 ALBUMIN (test code = 3568024119) 4.0 g/dL 3.5-5.0 ALK PHOS (test code = 7395429930) 71 U/L 34-122 ALTv (test code = 1742-6) 18 U/L 5-35 AST(SGOT) (test code = 0281291976) 20 U/L 13-40 eGFR (test code = 2077421904) mL/min/1.73m2 DARWIN (test code = DARWIN) Association [...] imaging tests). Lab Interpretation (test code = 37185-4) [facility]normal [facility]neyLip[facility], Duwgx8277-39-93 02:05:25* Test Item Value Reference Range Interpretation Comme nts LIPASE (test code = 4156809214) 96 U/L 0-220 Lab Interpretation (test cod e = 59901-6) Normal [facility]neyCB with Dfvrwwdojnix3649-78-08 01:53:06* Test Item Value Reference Range Interpretation Comme nts WBC (test code = 6690-2) See_Comment H [Automated [employer]] The system which generated this result transmitted reference range: 4.30 - 11.10 10*3/?L. The reference range was not used to interpret this result as normal/abnormal. RBC (test code = 789-8) See_Comment H [Automated [employer]] The system which generated this [...] 34.3 g/dL 31.6-35.1 RDW-SD (test code = 05922-1) 40.5 fL 39.0-49.9 RDW-CV (test code = 788-0) 14.4 % 12.0-15.5 PLT (test code = 777-3) See_Comment [Automated [employer]] The system which generated this result transmitted reference range: 166 - 358 10*3/?L. The reference range was not used to interpret this result as normal/abnormal. MPV (test code = 81366-7) 9.4 fL 9.5-12.9 L NRBC/100 WBC (test code = 6790821765) See_Comment [Automated me ssage] The system which generated this result transmitted reference range: 0.0 - 10.0 /100 WBCs. The reference range was not used to interpret this result as normal/abnormal. NRBC x10^3 (test code = 0261413655) <0.01 See_Comment [Automated messa ge] The system which generated this result transmitted reference range: 10*3/?L. The reference range was not used to interpret this result as normal/abnormal. GRAN MAT (NEUT) % (test code = 770-8) 59.8 % IMM GRAN % (test code = 0754580403) 0.40 % LYMPH % (test code = 736-9) 31.0 % MONO % (test code = 5905-5) 6.3 % EOS % (test code = 713-8) 2.0 % BASO % (test code = 706-2) 0.5 % GRAN MAT x10^3(ANC) (test code = 1614794090) 6.73 10*3/uL 1.88-7.09 IMM GRAN x10^3 (test code = 7974939543) 0.05 10*3/uL 0.00-0.06 LYMPH x10^3 (test code = 731-0) 3.50 10*3/uL 1.32-3.29 H MONO x10^3 (test code = 742-7) 0.71 10*3/uL 0.33-0.92 EOS x10^3 (test code = 711-2) 0.23 10*3/uL 0.03-0.39 BASO x10^3 (test code = 704-7) 0.06 10*3/uL 0.01-0.07 Lab Interpretation (test code = 63307-2) Abnormal [facility] Ljzj4664-91-87 01:45:00* Test Item Value Reference Range Interpretation Comme nts POCT PREG (test code = 1605) negatibe On board controls acceptable with C Line (test code = 3574) present POCT PREG LOT # (test code = 3575) [id number] POCT PREG TEST DATE ( test code = 3576) 09/04/2022 Lab Interpretation (test cod e = 58560-8) [facility]PO[facility] [id number] 06:35:00* Test Item Value Reference Range Interpretation Comme nts POCT PREG (test code = 1605) negative On board controls acceptable with C Line (test code = 3574) present POCT PREG LOT # (test code = 3575) [id number] POCT PREG TEST DATE ( test code = 3576) Lab Interpretation (test cod e = 18230-9) [facility]neyTR[facility] [id number] 09:09:55* Test Item Value Reference Range Interpretation Comments TROPONIN I (test code = 5231666186) 0.001 ng/mL See_Comment [Automated message] The system [...] of biotin. Lab Interpretation (test code = 91731-8) Normal [facility]neyD-FCHGE3985-80-06 07:23:51* Test Item Value Reference Range Interpretation Comments D-DIMER (test code = 5814968464) See_Comment [Automated message] The system which generated [...] a diagnosis. Lab Interpretation (test code = 87772-6) [facility]2021-11-21 06:11:26* Test Item Value Reference Range Interpretation Comme nts LIPASE (test code = 8636520456) 155 U/L 0-220 Lab Interpretation (test cod e = 50662-5) [facility]TR[facility] [id number] 06:06:05* Test Item Value Reference Range Interpretation Comments TROPONIN I (test code = 6242044994) 0.002 ng/mL See_Comment [Automated message] The system [...] of biotin. Lab Interpretation (test code = 97654-3) Normal [facility]neyN-TERMINAL CDL-MAW5630-71-21 06:03:04* Test Item Value Reference Range Interpretation Comme nts NT-proBNP (test code = 6415532481) 19 pg/mL See_Comment [Automated message] The system which generated this result transmitted reference range: <=125. The reference range was not used to interpret this result as normal/abnormal. DARWIN (test code = DARWIN) Biotin has been reported to cause a negative bias, interpret results relative to patient's use of biotin. Lab Interpretation (test code = 82373-9) Normal [facility]COMP. METABOLIC PANEL (40161)2021-05-28 05:54:25* Test Item Value Reference Range Interpretation Comme nts NA (test code = 2405229829) 136 mmol/L 135-145 K (test code = 3378372563) 3.2 mmol/L 3.5-5.0 L CL (test code = 6273118858) 109 mmol/L 98-108 H CO2 TOTAL (test code = 9724237730) 16 mmol/L 23-31 L AGAP (test code = 0347014173) 2-16 BUN (test code = 6622480908) 11 mg/dL 7-23 GLUCOSE (test code = 1901226694) 144 mg/dL 70-110 H CREATININE (test code = 3890636920) 0.84 mg/dL 0.50-1.04 TOTAL BILI (test code = 2695615345) 0.2 mg/dL 0.1-1.1 CALCIUM (test code = 0565521419) 9.4 mg/dL 8.6-10.6 T PROTEIN (test code = 0119240543) 6.9 g/dL 6.3-8.2 ALBUMIN (test code = 6468254672) 3.9 g/dL 3.5-5.0 ALK PHOS (test code = 1485019588) 106 U/L 34-122 ALTv (test code = 1742-6) 20 U/L 5-35 AST(SGOT) (test code = 3963366784) 17 U/L 13-40 eGFR (test code = 7616627879) mL/min/1.73m2 DARWIN (test code = DARWIN) Association [...] imaging tests). Lab Interpretation (test code = 36013-6) Abnormal [facility] WITH [id number] 05:40:06* Test Item Value Reference Range Interpretation Comme nts WBC (test code = 6690-2) See_Comment [[employer]] The system which generated this result transmitted reference range: 4.30 - 11.10 10*3/?L. The reference range was not used to interpret this result as normal/abnormal. RBC (test code = 789-8) See_Comment [[employer]] The system which generated this result transmitted [...] 33.3 g/dL 31.6-35.1 RDW-SD (test code = 94147-4) 39.7 fL 39.0-49.9 RDW-CV (test code = 788-0) 13.6 % 12.0-15.5 PLT (test code = 777-3) See_Comment [Automated messa ge] The system which generated this result transmitted reference range: 166 - 358 10*3/?L. The reference range was not used to interpret this result as normal/abnormal. MPV (test code = 55284-4) 9.5 fL 9.5-12.9 NRBC/100 WBC (test code = 8398161818) See_Comment [Automated me ssage] The system which generated this result transmitted reference range: 0.0 - 10.0 /100 WBCs. The reference range was not used to interpret this result as normal/abnormal. NRBC x10^3 (test code = 9545875520) <0.01 See_Comment [Automated messa ge] The system which generated this result transmitted reference range: 10*3/?L. The reference range was not used to interpret this result as normal/abnormal. GRAN MAT (NEUT) % (test code = 770-8) 53.7 % IMM GRAN % (test code = 7393374894) 0.50 % LYMPH % (test code = 736-9) 36.0 % MONO % (test code = 5905-5) 6.3 % EOS % (test code = 713-8) 2.8 % BASO % (test code = 706-2) 0.7 % GRAN MAT x10^3(ANC) (test code = 3658016650) 5.38 10*3/uL 1.88-7.09 IMM GRAN x10^3 (test code = 8573716989) 0.05 10*3/uL 0.00-0.06 LYMPH x10^3 (test code = 731-0) 3.60 10*3/uL 1.32-3.29 H MONO x10^3 (test code = 742-7) 0.63 10*3/uL 0.33-0.92 EOS x10^3 (test code = 711-2) 0.28 10*3/uL 0.03-0.39 BASO x10^3 (test code = 704-7) 0.07 10*3/uL 0.01-0.07 Lab Interpretation (test code = 25246-0) Abnormal [facility] ANCS8747-13-08 05:32:00* Test Item Value Reference Range Interpretation Comme nts POCT PREG (test code = 1605) negative On board controls acceptable with C Line (test code = 3574) present POCT PREG LOT # (test code = 3575) [id number] POCT PREG TEST DATE ( test code = 3576) 08/07/2022 Lab Interpretation (test cod e = 18643-8) [id number] 11:13:57* Test Item Value Reference Range Interpretation Comments TROPONIN I (test code = 9307769421) 0.002 ng/mL See_Comment [Automated message] The system [...] of biotin. Lab Interpretation (test code = 77350-9) [facility] (NA, K, CL, CO2, GLUCOSE, BUN, CREATININE, CA)2021-04-08 11:04:34* Test Item Value Reference Range Interpretation Comme [facility] NA (test code = 3691516772) 140 mmol/L 135-145 K (test code = 1574890308) 3.6 mmol/L 3.5-5.0 CL (test code = 1670118823) 111 mmol/L 98-108 H CO2 TOTAL (test code = 3433398300) 22 mmol/L 23-31 L AGAP (test code = 2192470457) 2-16 BUN (test code = 5693196521) 10 mg/dL 7-23 GLUCOSE (test code = 6721206597) 104 mg/dL 70-110 CREATININE (test code = 1159491039) 0.70 mg/dL 0.50-1.04 CALCIUM (test code = 7524329041) 8.7 mg/dL 8.6-10.6 eGFR (test code = 1353932220) mL/min/1.73m2 DARWIN (test code = DARWIN) Association [...] imaging tests). Lab Interpretation (test code = 53957-5) Abnormal [facility] with Fpbyipocnukd9748-45-47 10:46:50* Test Item Value Reference Range Interpretation Comme nts WBC (test code = 6690-2) See_Comment [Automated [employer]] The system which generated this result transmitted reference range: 4.30 - 11.10 10*3/?L. The reference range was not used to interpret this result as normal/abnormal. RBC (test code = 789-8) See_Comment [Automated [employer]] The system which generated this result transmitted [...] 33.5 g/dL 31.6-35.1 RDW-SD (test code = 70519-6) 42.0 fL 39.0-49.9 RDW-CV (test code = 788-0) 14.1 % 12.0-15.5 PLT (test code = 777-3) See_Comment [Automated messa ge] The system which generated this result transmitted reference range: 166 - 358 10*3/?L. The reference range was not used to interpret this result as normal/abnormal. MPV (test code = 62066-8) 10.0 fL 9.5-12.9 NRBC/100 WBC (test code = 2154405491) See_Comment [Automated me ssage] The system which generated this result transmitted reference range: 0.0 - 10.0 /100 WBCs. The reference range was not used to interpret this result as normal/abnormal. NRBC x10^3 (test code = 0148298916) <0.01 See_Comment [Automated me ssage] The system which generated this result transmitted reference range: 10*3/?L. The reference range was not used to interpret this result as normal/abnormal. GRAN MAT (NEUT) % (test code = 770-8) 59.1 % IMM GRAN % (test code = 6958508488) 0.70 % LYMPH % (test code = 736-9) 28.2 % MONO % (test code = 5905-5) 8.5 % EOS % (test code = 713-8) 3.0 % BASO % (test code = 706-2) 0.5 % GRAN MAT x10^3(ANC) (test code = 0011393161) 3.61 10*3/uL 1.88-7.09 IMM GRAN x10^3 (test code = 3526095816) 0.04 10*3/uL 0.00-0.06 LYMPH x10^3 (test code = 731-0) 1.72 10*3/uL 1.32-3.29 MONO x10^3 (test code = 742-7) 0.52 10*3/uL 0.33-0.92 EOS x10^3 (test code = 711-2) 0.18 10*3/uL 0.03-0.39 BASO x10^3 (test code = 704-7) 0.03 10*3/uL 0.01-0.07 [facility]neyTrop[facility] [id number] 05:54:48* Test Item Value Reference Range Interpretation Comments TROPONIN I (test code = 7082162546) 0.002 ng/mL See_Comment [Automated message] The system [...] of biotin. Lab Interpretation (test code = 15082-1) [facility]neyThyroid Stimulating Hormone (TSH)2021-04-08 00:51:16* Test Item Value Reference Range Interpretation Comme nts TSH (test code = 7389475591) See_Comment [Automated [employer]] The system which generated this result transmitted reference range: 0.45 - 4.70 mIU/L. The reference range was not used to interpret this result as normal/abnormal. Lab Interpretation (test code = 58735-1) [facility] [place]cosylated Hemoglobin (A1C)2021-04-08 00:26:53* Test Item Value Reference Range Interpretation Comme nts HGB A1C (test code = 4548-4) 5.5 % 4.0-5.7 DARWIN (test code = DARWIN) Reference RangesNormal: <5.7%Prediabetes: 5.7 - 6.4%Diabetes: > 6.5% Lab Interpretation (test code = 25867-6) [facility] [place] (Total Cholesterol, Triglycerides, HDL)2021-04-08 00:20:12* Test Item Value Reference Range Interpretation Comme nts CHOL (test code = 5481191489) 223 mg/dL 120-200 H HDL (test code = 6731686543) 35 mg/dL >50 L HDLC RATIO (test code = 0215368307) See_Comment H [Automated [employer]] The system which generated this result transmitted reference range: <=4.5. The reference range was not used to interpret this result as normal/abnormal. TRIG (test code = 7011873887) 223 mg/dL 30-170 H LDL CHOL (test code = 42167-6) 143 mg/dL See_Comment [Automated [employer]] The system which generated this result transmitted reference range: <=160. The reference range was not used to interpret this result as normal/abnormal. VLDL (test code = 7759286561) 45 mg/dL 5-60 Lab Interpretation (test code = 53389-4) [facility]neyMagn[facility] [id number] 00:20:07* Test Item Value Reference Range Interpretation Comme nts MAGNESIUM (test code = 7788895260) 1.7 mg/dL 1.7-2.4 Lab Interpretation (test cod e = 21446-8) Normal [facility] METABOLIC PANEL (59194)2021-04-07 23:04:13* Test Item Value Reference Range Interpretation Comme nts NA (test code = 9494244724) 139 mmol/L 135-145 K (test code = 7679388773) 3.4 mmol/L 3.5-5.0 L CL (test code = 2625854716) 109 mmol/L 98-108 H CO2 TOTAL (test code = 9720476479) 22 mmol/L 23-31 L AGAP (test code = 1086649883) 2-16 BUN (test code = 5745186560) 10 mg/dL 7-23 GLUCOSE (test code = 5131534730) 97 mg/dL 70-110 CREATININE (test code = 4022716802) 0.84 mg/dL 0.50-1.04 TOTAL BILI (test code = 7619613605) 0.3 mg/dL 0.1-1.1 CALCIUM (test code = 2496735189) 9.2 mg/dL 8.6-10.6 T PROTEIN (test code = 8594560964) 6.6 g/dL 6.3-8.2 ALBUMIN (test code = 9952909414) 3.8 g/dL 3.5-5.0 ALK PHOS (test code = 3835767508) 69 U/L 34-122 ALTv (test code = 1742-6) 18 U/L 5-35 AST(SGOT) (test code = 9936346515) 19 U/L 13-40 eGFR (test code = 3106282659) mL/min/1.73m2 DARWIN (test code = DARWIN) Association [...] imaging tests). Lab Interpretation (test code = 27018-4) [facility]normal [facility]neyTROP[facility]IN [id number] 22:33:04* Test Item Value Reference Range Interpretation Comments TROPONIN I (test code = 1172707924) 0.001 ng/mL See_Comment [Automated message] The system [...] of biotin. Lab Interpretation (test code = 84734-8) Normal [facility]neyN-TERMINAL [id number] 22:30:05* Test Item Value Reference Range Interpretation Comme nts NT-proBNP (test code = 1654367282) 352 pg/mL See_Comment H [Automated message] The system which generated this result transmitted reference range: <=125. The reference range was not used to interpret this result as normal/abnormal. DARWIN (test code = DARWIN) Biotin has been reported to cause a negative bias, interpret results relative to patient's use of biotin. Lab Interpretation (test code = 01569-5) Abnormal [facility]neyACTIVATED PARTIAL THRMPLAS [id number] 22:28:48* Test Item Value Reference Range Interpretation Comme nts APTT Patient (test code = 3173-2) See_Comment [Automated message] The system which generated this result transmitted reference range: 23 - 38 Seconds. The reference range was not used to interpret this result as normal/abnormal. DARWIN (test code = DARWIN) The [facility] patient population mean normal value for aPTT is 30 seconds. Lab Interpretation (test code = 73917-9) Normal [facility] McKinneyPROTHROMBIN TIME / [id number] 22:26:44* Test Item Value Reference Range Interpretation [...] the indications. Lab Interpretation (test code = 96694-6) [facility]neyLIPASE2021-10-01 22:20:05* Test Item Value Reference Range Interpretation Comme nts LIPASE (test code = 2818814160) 66 U/L 0-220 Lab Interpretation (test cod e = 62850-0) Normal [facility]neyCBC WITH [id number] 22:07:01* Test Item Value Reference Range Interpretation [...] 33.2 g/dL 31.6-35.1 RDW-SD (test code = 14582-3) 41.6 fL 39.0-49.9 RDW-CV (test code = 788-0) 14.1 % 12.0-15.5 PLT (test code = 777-3) See_Comment [Automated [employer] ge] The system which generated this result transmitted reference range: 166 - 358 10*3/?L. The reference range was not used to interpret this result as normal/abnormal. MPV (test code = 96751-8) 9.2 fL 9.5-12.9 L NRBC/100 WBC (test code = 5046995811) See_Comment [Automated [employer] ssage] The system which generated this result transmitted reference range: 0.0 - 10.0 /100 WBCs. The reference range was not used to interpret this result as normal/abnormal. NRBC x10^3 (test code = 8230507611) <0.01 See_Comment [Automated [employer] ge] The system which generated this result transmitted reference range: 10*3/?L. The reference range was not used to interpret this result as normal/abnormal. GRAN MAT (NEUT) % (test code = 770-8) 61.6 % IMM GRAN % (test code = 2567699145) 0.60 % LYMPH % (test code = 736-9) 28.7 % MONO % (test code = 5905-5) 4.9 % EOS % (test code = 713-8) 3.7 % BASO % (test code = 706-2) 0.5 % GRAN MAT x10^3(ANC) (test code = 1752787039) 6.24 10*3/uL 1.88-7.09 IMM GRAN x10^3 (test code = 0986048994) 0.06 10*3/uL 0.00-0.06 LYMPH x10^3 (test code = 731-0) 2.90 10*3/uL 1.32-3.29 MONO x10^3 (test code = 742-7) 0.50 10*3/uL 0.33-0.92 EOS x10^3 (test code = 711-2) 0.37 10*3/uL 0.03-0.39 BASO x10^3 (test code = 704-7) 0.05 10*3/uL 0.01-0.07 Lab Interpretation (test code = 85815-7) [facility]normal [facility]neyURINALYSIS2021-07-08 08:49:55* Test Item Value Reference Range Interpretation Comme nts APPEARANCE (test code = 5675773135) Cloudy Clear A COLOR (test code = 4331610347) Yellow Yellow PH (test code = 7740693705) 4.8-8.0 SP GRAVITY (test code = 0618902229) 1.003-1.030 GLU U QUAL (test code = 1640243424) Normal Normal BLOOD (test code = 8413922000) Negative Negative KETONES (test code = 5422362502) Negative Negative PROTEIN (test code = 2887-8) Negative Negative UROBILIN (test code = 3771863641) Normal Normal BILIRUBIN (test code = 1538932288) 2 mg/dL Negative A NITRITE (test code = 6502451595) Negative Negative LEUK MARC (test code = 4304588168) 75/uL Negative A RBC/HPF (test code = 3126829990) See_Comment H [Automated messa ge] The system which generated this result transmitted reference range: 0 - 3 HPF. The reference range was not used to interpret this result as normal/abnormal. WBC/HPF (test code = 0979836467) See_Comment H [Automated messa ge] The system which generated this result transmitted reference range: 0 - 5 HPF. The reference range was not used to interpret this result as normal/abnormal. BACTERIA (test code = 6793739158) Moderate Negative A MUCOUS (test code = 3396524619) Slight Negative LPF A SQ EPITH (test code = 3137783416) HPF YEAST BUD (test code = 1970985789) See_Comment H [Automated messa ge] The system which generated this result transmitted reference range: <=1 HPF. The reference range was not used to interpret this result as normal/abnormal. Ictotest (test code = 1319150148) Negative Lab Interpretation (test code = 54068-8) Abnormal [facility]neyCOMP. METABOLIC PANEL (80829)2021-01-12 08:49:44* Test Item Value Reference Range Interpretation Comme nts NA (test code = 1284606516) 137 mmol/L 135-145 K (test code = 7365904753) 4.6 mmol/L 3.5-5.0 CL (test code = 7719619643) 108 mmol/L 98-108 CO2 TOTAL (test code = 4240042350) 21 mmol/L 23-31 L AGAP (test code = 6345285096) 2-16 BUN (test code = 7287080833) 19 mg/dL 7-23 GLUCOSE (test code = 0022730673) 107 mg/dL 70-110 CREATININE (test code = 2842667967) 0.63 mg/dL 0.50-1.04 TOTAL BILI (test code = 3803775121) 0.4 mg/dL 0.1-1.1 CALCIUM (test code = 9959037538) 9.2 mg/dL 8.6-10.6 T PROTEIN (test code = 1320661252) 7.4 g/dL 6.3-8.2 ALBUMIN (test code = 7687004143) 4.2 g/dL 3.5-5.0 ALK PHOS (test code = 3526808969) 179 U/L 34-122 H ALTv (test code = 1742-6) 113 U/L 5-35 H AST(SGOT) (test code = 7173792866) 38 U/L 13-40 eGFR (test code = 8750688443) mL/min/1.73m2 DARWIN (test code = DARWIN) Association [...] imaging tests). Lab Interpretation (test code = 15078-2) Abnormal [facility] WITH [id number] 08:11:02* Test Item Value Reference Range Interpretation Comme nts WBC (test code = 6690-2) See_Comment H [Automated [employer]] The system which generated this result transmitted reference range: 4.30 - 11.10 10*3/?L. The reference range was not used to interpret this result as normal/abnormal. RBC (test code = 789-8) See_Comment [Automated [employer]] The system which generated this result transmitted [...] 33.3 g/dL 31.6-35.1 RDW-SD (test code = 62473-7) 41.6 fL 39.0-49.9 RDW-CV (test code = 788-0) 14.0 % 12.0-15.5 PLT (test code = 777-3) See_Comment [Automated [employer]] The system which generated this result transmitted reference range: 166 - 358 10*3/?L. The reference range was not used to interpret this result as normal/abnormal. MPV (test code = 13762-3) 9.5 fL 9.5-12.9 NRBC/100 WBC (test code = 9137360629) See_Comment [Automated me ssage] The system which generated this result transmitted reference range: 0.0 - 10.0 /100 WBCs. The reference range was not used to interpret this result as normal/abnormal. NRBC x10^3 (test code = 7731915040) <0.01 See_Comment [Automated messa ge] The system which generated this result transmitted reference range: 10*3/?L. The reference range was not used to interpret this result as normal/abnormal. GRAN MAT (NEUT) % (test code = 770-8) 68.0 % IMM GRAN % (test code = 6360627667) 0.80 % LYMPH % (test code = 736-9) 23.6 % MONO % (test code = 5905-5) 5.1 % EOS % (test code = 713-8) 2.1 % BASO % (test code = 706-2) 0.4 % GRAN MAT x10^3(ANC) (test code = 0087351789) 8.86 10*3/uL 1.88-7.09 H IMM GRAN x10^3 (test code = 0761973317) 0.11 10*3/uL 0.00-0.06 H LYMPH x10^3 (test code = 731-0) 3.07 10*3/uL 1.32-3.29 MONO x10^3 (test code = 742-7) 0.66 10*3/uL 0.33-0.92 EOS x10^3 (test code = 711-2) 0.27 10*3/uL 0.03-0.39 BASO x10^3 (test code = 704-7) 0.05 10*3/uL 0.01-0.07 Lab Interpretation (test code = 02537-3) [facility]normal [facility]neyPO[facility] [id number] 08:02:00* Test Item Value Reference Range Interpretation Comme nts POCT PREG (test code = 1605) negative On board controls acceptable with C Line (test code = 3574) positive POCT PREG LOT # (test code = 3575) [id number] POCT PREG TEST DATE ( test code = 3576) 07/07/2022 Lab Interpretation (test cod e = 75423-6) [id number] 01:55:05* Test Item Value Reference Range Interpretation Comme nts TROPONIN I (test code = 6656647849) 0.000 ng/mL See_Comment [Automated message] The system [...] biotin. ? Lab Interpretation (test code = 71846-1) Normal [facility] 1 [id number] 23:41:46No radiographic evidence of an acute cardiopulmonary process. RL: 2109AFC: 19175 EXAM: XR CHEST 1 VW ORDERING PROVIDER: [...] evidence of an acute cardiopulmonary process.RL: 2109AFC: 71962 [facility] [id number] 23:07:21* Test Item Value Reference Range Interpretation Comme nts TROPONIN I (test code = 6088605694) 0.000 ng/mL See_Comment [Automated message] The system [...] biotin. ? Lab Interpretation (test code = 91680-0) Normal [facility]ney[facility]-TERMINAL [id number]-[id number] 23:04:20* Test Item Value Reference Range Interpretation Comme nts NT-proBNP (test code = 9193612647) 14 pg/mL See_Comment [Automated message] The system which generated this result transmitted reference range: <=125. The reference range was not used to interpret this result as normal/abnormal. DARWIN (test code = DARWIN) Biotin has been reported to cause a negative bias, interpret results relative to patient's use of biotin. Lab Interpretation (test code = 77447-1) [facility]neyHep[facility] Function Panel (ALB, T.PRO, BILI T, BU/BC, ALT, AST, ALK PHOS)2020-12-10 22:58:16* Test Item Value Reference Range Interpretation Comme nts TOTAL BILI (test code = 5010874535) 0.5 mg/dL 0.1-1.1 BILI UNCON (test code = 2586011284) 0.3 mg/dL 0.1-1.1 BILI CONJ (test code = 3804527079) 0.0 mg/dL 0.0-0.3 T PROTEIN (test code = 3519184132) 8.1 g/dL 6.3-8.2 ALBUMIN (test code = 5036722190) 4.7 g/dL 3.5-5.0 ALK PHOS (test code = 3106365224) 104 U/L 34-122 ALTv (test code = 1742-6) 18 U/L 5-35 AST(SGOT) (test code = 0967756728) 23 U/L 13-40 Lab Interpretation (test cod e = 90044-8) [facility]neyBasic Metabolic Panel (NA, K, CL, CO2, GLUCOSE, BUN, CREATININE, CA)2020-12-10 22:57:56* Test Item Value Reference Range Interpretation Comme nts NA (test code = 7484999991) 135 mmol/L 135-145 K (test code = 7135922212) 3.7 mmol/L 3.5-5.0 CL (test code = 3040607116) 105 mmol/L 98-108 CO2 TOTAL (test code = 9040176322) 18 mmol/L 23-31 L AGAP (test code = 3362769641) 2-16 BUN (test code = 0446788806) 14 mg/dL 7-23 GLUCOSE (test code = 8778158191) 108 mg/dL 70-110 CREATININE (test code = 2641500083) 0.56 mg/dL 0.50-1.04 CALCIUM (test code = 6158479404) 9.8 mg/dL 8.6-10.6 eGFR (test code = 9458753970) mL/min/1.73m2 DARWIN (test code = DARWIN) Association [...] imaging tests). Lab Interpretation (test code = 59662-8) [facility]normal [facility] McKinneyLipase [id number] 22:57:56* Test Item Value Reference Range Interpretation Comme nts LIPASE (test code = 1354507339) 122 U/L 0-220 Lab Interpretation (test cod e = 99063-2) Normal [facility] McKinneyD-HSEBD0538-95-71 22:52:34* Test Item Value Reference Range Interpretation Comments D-DIMER (test code = 9050986614) See_Comment [Automated message] The system which generated [...] a diagnosis. Lab Interpretation (test code = 74750-5) Normal [facility]neyUrinalysis2021-06-05 22:52:29* Test Item Value Reference Range Interpretation Comme nts APPEARANCE (test code = 5815646067) Hazy Clear A COLOR (test code = 3743720099) Yellow Yellow PH (test code = 6010553438) 4.8-8.0 SP GRAVITY (test code = 7296533872) 1.003-1.030 GLU U QUAL (test code = 8986138128) Normal Normal BLOOD (test code = 1237266880) Negative Negative KETONES (test code = 1215227821) Negative Negative PROTEIN (test code = 2887-8) Negative Negative UROBILIN (test code = 4014061784) Normal Normal BILIRUBIN (test code = 5011156007) 2 mg/dL Negative A NITRITE (test code = 5097521682) Negative Negative LEUK MARC (test code = 6532450583) 25/uL Negative A RBC/HPF (test code = 5211698392) See_Comment [Automated [employer]] The system which generated this result transmitted reference range: 0 - 3 HPF. The reference range was not used to interpret this result as normal/abnormal. WBC/HPF (test code = 7332939598) See_Comment [Automated [employer]] The system which generated this result transmitted reference range: 0 - 5 HPF. The reference range was not used to interpret this result as normal/abnormal. BACTERIA (test code = 4738664281) Few Negative A MUCOUS (test code = 9640513669) Slight Negative LPF A SQ EPITH (test code = 3092281351) HPF Lab Interpretation (test code = 06135-2) Abnormal [facility] with Kemtwxinmcrd5428-54-55 22:45:56* Test Item Value Reference Range Interpretation [...] 33.5 g/dL 31.6-35.1 RDW-SD (test code = 91323-5) 40.5 fL 39.0-49.9 RDW-CV (test code = 788-0) 13.3 % 12.0-15.5 PLT (test code = 777-3) See_Comment H [Automated message] The system which generated this result transmitted reference range: 166 - 358 10*3/?L. The reference range was not used to interpret this result as normal/abnormal. MPV (test code = 82778-8) 9.2 fL 9.5-12.9 L NRBC/100 WBC (test code = 9542216859) See_Comment [Automated message] The system which generated this result transmitted reference range: 0.0 - 10.0 /100 WBCs. The reference range was not used to interpret this result as normal/abnormal. NRBC x10^3 (test code = 0120121387) <0.01 See_Comment [Automated message] The system which generated this result transmitted reference range: 10*3/?L. The reference range was not used to interpret this result as normal/abnormal. GRAN MAT (NEUT) % (test code = 770-8) 73.4 % IMM GRAN % (test code = 8291168746) 0.50 % LYMPH % (test code = 736-9) 17.5 % MONO % (test code = 5905-5) 6.5 % EOS % (test code = 713-8) 1.6 % BASO % (test code = 706-2) 0.5 % GRAN MAT x10^3(ANC) (test code = 1873860534) 10.21 10*3/uL 1.88-7.09 H IMM GRAN x10^3 (test code = 5285536727) 0.07 10*3/uL 0.00-0.06 H LYMPH x10^3 (test code = 731-0) 2.44 10*3/uL 1.32-3.29 MONO x10^3 (test code = 742-7) 0.90 10*3/uL 0.33-0.92 EOS x10^3 (test code = 711-2) 0.22 10*3/uL 0.03-0.39 BASO x10^3 (test code = 704-7) 0.07 10*3/uL 0.01-0.07 Lab Interpretation (test code = 95218-2) [facility]normal [facility]neyPOCT Wkpt9145-94-89 22:32:00* Test Item Value Reference Range Interpretation Comme nts POCT PREG (test code = 1605) negative On board controls acceptable with C Line (test code = 3574) present POCT PREG LOT # (test code = 3575) [id number] POCT PREG TEST DATE ( test code = 3576) 06/06/2022 Lab Interpretation (test cod e = 36873-5) Normal [facility] McKinneyUrinalysis2021-05-30 21:34:43* Test Item Value Reference Range Interpretation Comme nts APPEARANCE (test code = 9253027499) Clear Clear COLOR (test code = 2978363183) Yellow Yellow PH (test code = 3163320834) 4.8-8.0 SP GRAVITY (test code = 2610097850) 1.003-1.030 GLU U QUAL (test code = 8549231008) Normal Normal BLOOD (test code = 5902668095) Negative Negative KETONES (test code = 6247923652) Negative Negative PROTEIN (test code = 2887-8) Negative Negative UROBILIN (test code = 1747735863) Normal Normal BILIRUBIN (test code = 0470868695) Negative Negative NITRITE (test code = 4145605948) Negative Negative LEUK MARC (test code = 7051250962) Negative Negative RBC/HPF (test code = 8973190570) See_Comment [Automated [employer] ge] The system which generated this result transmitted reference range: 0 - 3 HPF. The reference range was not used to interpret this result as normal/abnormal. WBC/HPF (test code = 9046047861) <1 See_Comment [Automated messa ge] The system which generated this result transmitted reference range: 0 - 5 HPF. The reference range was not used to interpret this result as normal/abnormal. BACTERIA (test code = 4791189357) Negative Negative MUCOUS (test code = 9875889467) Slight Negative LPF A SQ EPITH (test code = 0470738932) HPF Lab Interpretation (test code = 09677-6) [facility]normal [facility]neyPOCT Aqip3959-41-95 21:18:00* Test Item Value Reference Range Interpretation Comme nts POCT PREG (test code = 1605) negative On board controls acceptable with C Line (test code = 3574) present POCT PREG LOT # (test code = 3575) [id number] POCT PREG TEST DATE ( test code = 3576) 06/06/2022 Lab Interpretation (test cod e = 25045-9) Normal [facility] McKinneyXR ANKLE 3+ VW ADSQ0398-54-20 21:11:00No acute bony abnormality. Preliminary Report Dictated [...] within normal limits. The softtissues are unremarkable. [facility], Radiant Results Inft User - 12/04/2020 4:12 [...] abovereport.[facility] McKinneyTroponin [id number] 20:59:44* Test Item Value Reference Range Interpretation Comme nts TROPONIN I (test code = 7362760400) 0.000 ng/mL See_Comment [Automated message] The system [...] biotin. ? Lab Interpretation (test code = 99264-9) Normal [facility] McKinneyLipase Kurzj2193-86-96 20:48:20* Test Item Value Reference Range Interpretation Comme nts LIPASE (test code = 8382196445) 96 U/L 0-220 Lab Interpretation (test cod e = 07277-9) Normal [facility] Metabolic Panel (NA, K, CL, CO2, GLUCOSE, BUN, CREATININE, CA)2020-12-04 20:48:20* Test Item Value Reference Range Interpretation Comme nts NA (test code = 0133003235) 138 mmol/L 135-145 K (test code = 3929752072) 3.8 mmol/L 3.5-5.0 CL (test code = 1316869791) 108 mmol/L 98-108 CO2 TOTAL (test code = 9903919276) 21 mmol/L 23-31 L AGAP (test code = 7073099183) 2-16 BUN (test code = 5063510953) 13 mg/dL 7-23 GLUCOSE (test code = 5257539096) 107 mg/dL 70-110 CREATININE (test code = 1426817186) 0.66 mg/dL 0.50-1.04 CALCIUM (test code = 7419709838) 9.3 mg/dL 8.6-10.6 eGFR (test code = 1192468139) mL/min/1.73m2 DARWIN (test code = ADRWIN) Association of Glomerular Filtration Rate (GFR) and [...] imaging tests). Lab Interpretation (test code = 70552-0) [facility]normal [facility]neyHep[facility] Function Panel (ALB, T.PRO, BILI T, BU/BC, ALT, AST, ALK PHOS)2020-12-04 20:48:20* Test Item Value Reference Range Interpretation Comme nts TOTAL BILI (test code = 6718681712) 0.3 mg/dL 0.1-1.1 BILI UNCON (test code = 9690385223) 0.1 mg/dL 0.1-1.1 BILI CONJ (test code = 5945516734) 0.0 mg/dL 0.0-0.3 T PROTEIN (test code = 7437411513) 7.0 g/dL 6.3-8.2 ALBUMIN (test code = 2259325688) 4.0 g/dL 3.5-5.0 ALK PHOS (test code = 7256619861) 114 U/L 34-122 ALTv (test code = 1742-6) 30 U/L 5-35 AST(SGOT) (test code = 8759331305) 23 U/L 13-40 Lab Interpretation (test cod e = 00784-3) [facility]neyCBC with Cupdxvhyglts8876-86-07 20:35:01* Test Item Value Reference Range Interpretation Comme nts WBC (test code = 6690-2) See_Comment [Automated [employer]] The system which generated this result transmitted reference range: 4.30 - 11.10 10*3/?L. The reference range was not used to interpret this result as normal/abnormal. RBC (test code = 789-8) See_Comment [Automated [employer]] The system which generated this result transmitted [...] 34.0 g/dL 31.6-35.1 RDW-SD (test code = 47484-0) 39.8 fL 39.0-49.9 RDW-CV (test code = 788-0) 12.9 % 12.0-15.5 PLT (test code = 777-3) See_Comment [Automated [employer] ge] The system which generated this result transmitted reference range: 166 - 358 10*3/?L. The reference range was not used to interpret this result as normal/abnormal. MPV (test code = 16833-1) 9.3 fL 9.5-12.9 L NRBC/100 WBC (test code = 1013664023) See_Comment [Automated [employer] ssage] The system which generated this result transmitted reference range: 0.0 - 10.0 /100 WBCs. The reference range was not used to interpret this result as normal/abnormal. NRBC x10^3 (test code = 6744919938) <0.01 See_Comment [Automated [employer] ge] The system which generated this result transmitted reference range: 10*3/?L. The reference range was not used to interpret this result as normal/abnormal. GRAN MAT (NEUT) % (test code = 770-8) 71.5 % IMM GRAN % (test code = 8510145121) 0.30 % LYMPH % (test code = 736-9) 19.8 % MONO % (test code = 5905-5) 6.2 % EOS % (test code = 713-8) 1.8 % BASO % (test code = 706-2) 0.4 % GRAN MAT x10^3(ANC) (test code = 6603217259) 6.79 10*3/uL 1.88-7.09 IMM GRAN x10^3 (test code = 7928247193) 0.03 10*3/uL 0.00-0.06 LYMPH x10^3 (test code = 731-0) 1.88 10*3/uL 1.32-3.29 MONO x10^3 (test code = 742-7) 0.59 10*3/uL 0.33-0.92 EOS x10^3 (test code = 711-2) 0.17 10*3/uL 0.03-0.39 BASO x10^3 (test code = 704-7) 0.04 10*3/uL 0.01-0.07 Lab Interpretation (test code = 22067-9) [facility]normal [facility]neyDR[facility] (URINE)2020-11-04 02:54:38* Test Item Value Reference Range Interpretation Comme nts AMPHET (test code = 4450216820) Negative Negative Cocaine Metabolite (test code = 3127246169) Negative Negative OPIATES (test code = 4439528216) Presumptive Positive Negative A THC (test code = 1889448075) Negative Negative DARWIN (test code = DARWIN) Urine Drug Cutoff Ranges Amphetamine: ? 1,000 ng/mLCocaine: ? 150 ng/mLOpiates: ? 300 ng/mLCannabinoids: ?50 ng/mL The results are to be used only for medical (i.e., treatment) purposes. Unconfirmed screening results must not be used for non-medical purposes (e.g., employment testing, legal testing). Lab Interpretation (test code = 39706-2) [facility]normal [facility]neyTROPONIN [id number] 02:51:11* Test Item Value Reference Range Interpretation Comme nts TROPONIN I (test code = 0881678630) 0.001 ng/mL See_Comment [Automated message] The system [...] biotin. ? Lab Interpretation (test code = 35477-3) [facility] 02:41:10* Test Item Value Reference Range Interpretation Comme nts APTT Patient (test code = 3173-2) See_Comment [Automated message] The system which generated this result transmitted reference range: 23 - 38 Seconds. The reference range was not used to interpret this result as normal/abnormal. DARWIN (test code = DARWIN) The [facility] patient population mean normal value for aPTT is 30 seconds. Lab Interpretation (test code = 03652-5) [facility]21-[facility] 02:40:40* Test Item Value Reference Range Interpretation Comme nts APPEARANCE (test code = 3955375478) Clear Clear COLOR (test code = 2560811741) Yellow Yellow PH (test code = 2358383565) 4.8-8.0 SP GRAVITY (test code = 9003171719) 1.003-1.030 GLU U QUAL (test code = 1367201461) Normal Normal BLOOD (test code = 5170244234) Negative Negative KETONES (test code = 0608255224) Negative Negative PROTEIN (test code = 2887-8) Negative Negative UROBILIN (test code = 2644085343) Normal Normal BILIRUBIN (test code = 9371685323) Negative Negative NITRITE (test code = 0538269419) Negative Negative LEUK MARC (test code = 2394439606) Negative Negative RBC/HPF (test code = 8321407112) <1 See_Comment [Automated [employer]] The system which generated this result transmitted reference range: 0 - 3 HPF. The reference range was not used to interpret this result as normal/abnormal. WBC/HPF (test code = 6250142372) <1 See_Comment [Automated [employer]] The system which generated this result transmitted reference range: 0 - 5 HPF. The reference range was not used to interpret this result as normal/abnormal. BACTERIA (test code = 4486811358) Negative Negative MUCOUS (test code = 2261506037) Slight Negative LPF A SQ EPITH (test code = 2960004172) HPF Lab Interpretation (test code = 77536-7) Abnormal [facility]. METABOLIC PANEL (79262)2020-11-04 02:40:09* Test Item Value Reference Range Interpretation Comme nts NA (test code = 9423845475) 141 mmol/L 135-145 K (test code = 1327723894) 4.1 mmol/L 3.5-5.0 CL (test code = 8389975855) 110 mmol/L 98-108 H CO2 TOTAL (test code = 9210458310) 22 mmol/L 23-31 L AGAP (test code = 4773445879) 2-16 BUN (test code = 2994710586) 15 mg/dL 7-23 GLUCOSE (test code = 8608916133) 115 mg/dL 70-110 H CREATININE (test code = 5428448610) 0.69 mg/dL 0.50-1.04 TOTAL BILI (test code = 4724278761) 0.2 mg/dL 0.1-1.1 CALCIUM (test code = 7234476459) 9.2 mg/dL 8.6-10.6 T PROTEIN (test code = 7433899267) 6.8 g/dL 6.3-8.2 ALBUMIN (test code = 4101973943) 4.1 g/dL 3.5-5.0 ALK PHOS (test code = 9868404905) 69 U/L 34-122 ALTv (test code = 1742-6) 20 U/L 5-35 AST(SGOT) (test code = 1817036999) 23 U/L 13-40 eGFR (test code = 8784019561) mL/min/1.73m2 DARWIN (test code = DARWIN) Association [...] imaging tests). Lab Interpretation (test code = 22130-4) Abnormal [facility]neyLIPASE, [id number] 02:39:49* Test Item Value Reference Range Interpretation Comme [facility] LIPASE (test code = 2824843448) 117 U/L 0-220 Lab Interpretation (test cod e = 16730-3) Normal [facility]neyPROTHROMBIN TIME / [id number] 02:39:08* Test Item Value Reference Range Interpretation Comme [facility] PROTIME PATIENT (test code = 5964-2) See_Comment [Automated [employer]] The system which generated this result transmitted reference range: 12.0 - 14.7 Seconds. The reference range was not used to interpret this result as normal/abnormal. INR (test code = 6301-6) Normal INR <1.1; Warfarin Therapeutic range 2.0 to 3.0 or 2.5 to 3.5, depending upon the indications. Lab Interpretation (test code = 92627-1) Normal [facility] WITH [id number] 02:30:11* Test Item Value Reference Range Interpretation [...] 32.8 g/dL 31.6-35.1 RDW-SD (test code = 30676-4) 44.1 fL 39.0-49.9 RDW-CV (test code = 788-0) 13.8 % 12.0-15.5 PLT (test code = 777-3) See_Comment [Automated messa ge] The system which generated this result transmitted reference range: 166 - 358 10*3/?L. The reference range was not used to interpret this result as normal/abnormal. MPV (test code = 16446-4) 9.6 fL 9.5-12.9 NRBC/100 WBC (test code = 3327109026) See_Comment [Automated [employer] ssage] The system which generated this result transmitted reference range: 0.0 - 10.0 /100 WBCs. The reference range was not used to interpret this result as normal/abnormal. NRBC x10^3 (test code = 2568504785) <0.01 See_Comment [Automated messa ge] The system which generated this result transmitted reference range: 10*3/?L. The reference range was not used to interpret this result as normal/abnormal. GRAN MAT (NEUT) % (test code = 770-8) 65.9 % IMM GRAN % (test code = 8899518099) 0.70 % LYMPH % (test code = 736-9) 25.9 % MONO % (test code = 5905-5) 5.1 % EOS % (test code = 713-8) 2.0 % BASO % (test code = 706-2) 0.4 % GRAN MAT x10^3(ANC) (test code = 5788463175) 8.82 10*3/uL 1.88-7.09 H IMM GRAN x10^3 (test code = 1495799686) 0.09 10*3/uL 0.00-0.06 H LYMPH x10^3 (test code = 731-0) 3.46 10*3/uL 1.32-3.29 H MONO x10^3 (test code = 742-7) 0.68 10*3/uL 0.33-0.92 EOS x10^3 (test code = 711-2) 0.27 10*3/uL 0.03-0.39 BASO x10^3 (test code = 704-7) 0.05 10*3/uL 0.01-0.07 Lab Interpretation (test code = 29607-9) [facility]normal [facility]OVID[facility] (ID NOW RAPID TESTING)2020-09-17 16:56:05* Test Item Value Reference Range Interpretation Comme nts SARS-CoV-2 Rapid ID NOW (test code = 06956-1) Not Detected Not Detected DARWIN (test code = DARWIN) ID NOW COVID-19 As say is an isothermal nucleic acid amplification test intended for the qualitative detection of nucleic acid from SARS-CoV-2 viral RNA in nasopharyngeal (SHEET [employer] SALESPERSON) specimens. It is used under Emergency Use [...] clinically indicated. Lab Interpretation (test code = 84480-6) Normal [facility]neyRAPID STREP SCREEN FOR GROUP [id number] 16:54:09* Test Item Value Reference Range Interpretation Comme nts Streptococcus pyogenes (grou p A) antigen (test code = 64201-7) Negative Negative Lab Interpretation (test cod e = 65046-7) [facility]neyXR HAND 3+ VW [id number] 07:29:48 Impression: No acute fracture or dislocation. RL: 2824AFC: 86046 End of Report Exam: Left Hand, 09/07/2020 [...] swelling.IMPRESSIONImpression: No acute fracture or dislocation.RL: 2824AFC: 54213Zdf of Report [facility] VW [id number] 07:28:55No acute abnormality of the left forearm. RL: 6200AFC: 49091 Patient name: CHARITY MONROYOB: 1980 40 years [...] acute abnormality of the left forearm.RL: 6200AF: 45051 [facility] 09:06:00* Test Item Value Reference Range Interpretation Comme nts APPEARANCE (test code = 2251030028) Hazy Clear A COLOR (test code = 9721922276) Yellow Yellow PH (test code = 3342107345) 4.8-8.0 SP GRAVITY (test code = 6022865495) 1.003-1.030 GLU U QUAL (test code = 3103058219) Normal Normal BLOOD (test code = 5966733104) Negative Negative KETONES (test code = 3917275718) Negative Negative PROTEIN (test code = 2887-8) Negative Negative UROBILIN (test code = 5387017663) Normal Normal BILIRUBIN (test code = 8146402289) Negative Negative NITRITE (test code = 6405077344) Negative Negative LEUK MARC (test code = 1100880603) Negative Negative RBC/HPF (test code = 2671136446) See_Comment [Automated [employer]] The system which generated this result transmitted reference range: 0 - 3 HPF. The reference range was not used to interpret this result as normal/abnormal. WBC/HPF (test code = 2235133324) <1 See_Comment [Automated [employer]] The system which generated this result transmitted reference range: 0 - 5 HPF. The reference range was not used to interpret this result as normal/abnormal. BACTERIA (test code = 9771958215) Moderate Negative A SQ EPITH (test code = 7009415338) HPF Lab Interpretation (test code = 84403-4) Abnormal [facility] with Zresxjvzuudx3911-35-62 08:50:00* Test Item Value Reference Range Interpretation [...] 34.0 g/dL 31.6-35.1 RDW-SD (test code = 81100-0) 42.6 fL 39-49.9 RDW-CV (test code = 788-0) 13.6 % 12-15.5 PLT (test code = 777-3) See_Comment H [Automated messa ge] The system which generated this result transmitted reference range: 166 - 358 10*3/?L. The reference range was not used to interpret this result as normal/abnormal. MPV (test code = 45329-9) 9.7 fL 9.5-12.9 NRBC/100 WBC (test code = 5688872211) See_Comment [Automated [employer] ssage] The system which generated this result transmitted reference range: 0.0 - 10.0 /100 WBCs. The reference range was not used to interpret this result as normal/abnormal. NRBC x10^3 (test code = 8913892881) <0.01 See_Comment [Automated messa ge] The system which generated this result transmitted reference range: 10*3/?L. The reference range was not used to interpret this result as normal/abnormal. GRAN MAT (NEUT) % (test code = 770-8) 49.7 % IMM GRAN % (test code = 6810613462) 0.50 % LYMPH % (test code = 736-9) 41.0 % MONO % (test code = 5905-5) 6.5 % EOS % (test code = 713-8) 1.9 % BASO % (test code = 706-2) 0.4 % GRAN MAT x10^3(ANC) (test code = 2305902706) 6.39 10*3/uL 1.88-7.09 IMM GRAN x10^3 (test code = 2351697708) 0.07 10*3/uL 0-0.06 H LYMPH x10^3 (test code = 731-0) 5.27 10*3/uL 1.32-3.29 H MONO x10^3 (test code = 742-7) 0.84 10*3/uL 0.33-0.92 EOS x10^3 (test code = 711-2) 0.24 10*3/uL 0.03-0.39 BASO x10^3 (test code = 704-7) 0.05 10*3/uL 0.01-0.07 Lab Interpretation (test code = 80466-2) [facility]normal [facility]neyPOCT [id number] 08:45:00* Test Item Value Reference Range Interpretation Comme nts POCT PREG (test code = 1605) neg On board controls acceptable with C Line (test code = 3574) yes POCT PREG LOT # (test code = 3575) [id number] POCT PREG TEST DATE ( test code = 3576) 04/06/2022 Lab Interpretation (test cod e = 10837-4) [facility]neyComplete Metabolic Bckxu1168-73-27 08:30:00* Test Item Value Reference Range Interpretation Comme nts NA (test code = 4774202316) 137 mmol/L 135-145 K (test code = 6607477043) 3.3 mmol/L 3.5-5 L CL (test code = 8464941986) 102 mmol/L 98-108 CO2 TOTAL (test code = 5461913911) 24 mmol/L 23-31 AGAP (test code = 8381616826) 2-16 BUN (test code = 9522148920) 9 mg/dL 7-23 GLUCOSE (test code = 8147991922) 116 mg/dL 70-110 H CREATININE (test code = 7351146504) 0.48 mg/dL 0.5-1.04 L TOTAL BILI (test code = 7362177439) 0.3 mg/dL 0.1-1.1 CALCIUM (test code = 8675243240) 9.4 mg/dL 8.6-10.6 T PROTEIN (test code = 6114435750) 7.0 g/dL 6.3-8.2 ALBUMIN (test code = 4450489092) 4.3 g/dL 3.5-5 ALK PHOS (test code = 6820052933) 127 U/L 34-122 H ALTv (test code = 1742-6) 87 U/L 5-35 H AST(SGOT) (test code = 8817283429) 34 U/L 13-40 eGFR Calculation (Non-) (test code = 4234180701) mL/min/1.73m2 eGFR Calculation () (test code = 6212962597) mL/min/1.73m2 DARWIN (test code = DARWIN) Association [...] imaging tests). Lab Interpretation (test code = 56055-0) [facility]normal [facility] McKinneyLipase, [id number] 08:30:00* Test Item Value Reference Range Interpretation Comme nts LIPASE (test code = 4892939304) 297 U/L 0-220 H Lab Interpretation (test cod e = 57053-2) Abnormal [facility]neyURINALYSIS2021-02-07 19:25:00* Test Item Value Reference Range Interpretation Comme nts APPEARANCE (test code = 8881606063) Clear Clear COLOR (test code = 6396922318) Straw Yellow A PH (test code = 8322796565) 4.8-8.0 SP GRAVITY (test code = 4329160665) 1.003-1.030 GLU U QUAL (test code = 0382381085) Normal Normal BLOOD (test code = 5629888713) 1+ Negative A KETONES (test code = 9692336823) Negative Negative PROTEIN (test code = 2887-8) Negative Negative UROBILIN (test code = 1027343355) Normal Normal BILIRUBIN (test code = 1014203167) Negative Negative NITRITE (test code = 9170116235) Negative Negative LEUK MARC (test code = 9413213385) Negative Negative RBC/HPF (test code = 5784954759) See_Comment [Automated [employer]] The system which generated this result transmitted reference range: 0 - 3 HPF. The reference range was not used to interpret this result as normal/abnormal. WBC/HPF (test code = 3896666149) <1 See_Comment [Automated [employer]] The system which generated this result transmitted reference range: 0 - 5 HPF. The reference range was not used to interpret this result as normal/abnormal. BACTERIA (test code = 0339609471) Few Negative A MUCOUS (test code = 1318108286) Slight Negative LPF A SQ EPITH (test code = 8804092712) HPF Lab Interpretation (test code = 96936-8) Abnormal [facility]neyTROPONIN [id number] 19:09:00* Test Item Value Reference Range Interpretation Comme nts TROPONIN I (test code = 4406420822) <0.012 See_Comment [Automated message] The system which [...] biotin. ? Lab Interpretation (test code = 47366-4) Normal [facility]neyAD [facility] [place] [facility] [id number] 19:09:00* Test Item Value Reference Range Interpretation Comme nts BENZO U (test code = 2436151417) Presumptive Positive Negative A ROSA U (test code = 9749589527) Negative Negative AMPHET (test code = 1364590933) Negative Negative THC (test code = 6328209427) Negative Negative METHADONE (test code = 3478551086) Negative Negative Meth U (test code = 7566208937) Negative Negative OPIATES (test code = 4399354049) Negative Negative Cocaine Metabolite (test code = 4457215206) Negative Negative PROPOXY (test code = 2439897419) Negative Negative Tric U (test code = 7718446018) Negative Negative PCP (test code = 5312544603) Negative Negative OXYCOD (test code = 3428240631) Negative Negative DARWIN (test code = DARWIN) [...] legal testing). Lab Interpretation (test code = 61135-2) Abnormal [facility] McKinneyCOMP. METABOLIC PANEL (72830)2020-08-14 19:01:00* Test Item Value Reference Range Interpretation Comme nts NA (test code = 1067906821) 138 mmol/L 135-145 K (test code = 6408173825) 4.5 mmol/L 3.5-5 CL (test code = 1192728346) 106 mmol/L 98-108 CO2 TOTAL (test code = 9875426458) 21 mmol/L 23-31 L AGAP (test code = 8448011662) 2-16 BUN (test code = 0870711489) 13 mg/dL 7-23 GLUCOSE (test code = 2252174273) 97 mg/dL 70-110 CREATININE (test code = 4635203512) 0.48 mg/dL 0.5-1.04 L TOTAL BILI (test code = 5021723973) 0.4 mg/dL 0.1-1.1 CALCIUM (test code = 5176464502) 9.1 mg/dL 8.6-10.6 T PROTEIN (test code = 9607952736) 7.5 g/dL 6.3-8.2 ALBUMIN (test code = 6456859384) 4.3 g/dL 3.5-5 ALK PHOS (test code = 1767438384) 62 U/L 34-122 ALTv (test code = 1742-6) 19 U/L 5-35 AST(SGOT) (test code = 3965267953) 26 U/L 13-40 eGFR Calculation (Non-) (test code = 3706627527) mL/min/1.73m2 eGFR Calculation () (test code = 4544526426) mL/min/1.73m2 DARWIN (test code = DARWIN) Association [...] imaging tests). Lab Interpretation (test code = 30240-0) Abnormal [facility]neyLIPASE2021-02-07 19:01:00* Test Item Value Reference Range Interpretation Comme nts LIPASE (test code = 2313669680) 76 U/L 0-220 Lab Interpretation (test cod e = 43844-2) Normal [facility] WITH [id number] 18:47:00* Test Item Value Reference Range Interpretation [...] 34.3 g/dL 31.6-35.1 RDW-SD (test code = 00269-8) 42.0 fL 39-49.9 RDW-CV (test code = 788-0) 13.4 % 12-15.5 PLT (test code = 777-3) See_Comment [Automated messa ge] The system which generated this result transmitted reference range: 166 - 358 10*3/?L. The reference range was not used to interpret this result as normal/abnormal. MPV (test code = 44787-3) 9.9 fL 9.5-12.9 NRBC/100 WBC (test code = 6312208946) See_Comment [Automated [employer]] The system which generated this result transmitted reference range: 0.0 - 10.0 /100 WBCs. The reference range was not used to interpret this result as normal/abnormal. NRBC x10^3 (test code = 9559895419) <0.01 See_Comment [Automated messa ge] The system which generated this result transmitted reference range: 10*3/?L. The reference range was not used to interpret this result as normal/abnormal. GRAN MAT (NEUT) % (test code = 770-8) 60.1 % IMM GRAN % (test code = 5938230925) 0.40 % LYMPH % (test code = 736-9) 31.3 % MONO % (test code = 5905-5) 6.0 % EOS % (test code = 713-8) 1.9 % BASO % (test code = 706-2) 0.3 % GRAN MAT x10^3(ANC) (test code = 0116716410) 6.96 10*3/uL 1.88-7.09 IMM GRAN x10^3 (test code = 5552455001) 0.05 10*3/uL 0-0.06 LYMPH x10^3 (test code = 731-0) 3.62 10*3/uL 1.32-3.29 H MONO x10^3 (test code = 742-7) 0.69 10*3/uL 0.33-0.92 EOS x10^3 (test code = 711-2) 0.22 10*3/uL 0.03-0.39 BASO x10^3 (test code = 704-7) 0.04 10*3/uL 0.01-0.07 Lab Interpretation (test code = 11747-1) [facility]normal [facility] McKinneyXR CHEST 1 [id number] 18:17:08No acute cardiopulmonary abnormality. Preliminary Report Dictated [...] report.[facility] McKinneyLactic Acid Whole [id number] 18:11:00* Test Item Value Reference Range Interpretation Comme nts LACTIC ACID (test code = 3441139703) 1.95 mmol/L 0.5-2.2 Lab Interpretation (test cod e = 25450-9) Normal [facility] McKinneyCT ABDOMEN PELVIS WO [id number] 05:45:24No acute abdominopelvic abnormality. No urolithiasis. 2.5 [...] spinal canal stenosis.Preliminary Report Dictated by Resident: Jona Albert MD., have reviewed this study and agree with the abovereport.[facility] McKinneyPOMO [id number] 03:10:00* Test Item Value Reference Range Interpretation Comme nts POCT PREG (test code = 1605) Negative On board controls acceptable with C Line (test code = 3574) Present POCT PREG LOT # (test code = 3575) [id number] POCT PREG TEST DATE ( test code = 3576) 03/07/2022 Lab Interpretation (test cod e = 24746-9) Normal [facility] with Bzotstiqeirp6319-88-15 03:05:00* Test Item Value Reference Range Interpretation [...] 34.7 g/dL 31.6-35.1 RDW-SD (test code = 98379-4) 42.0 fL 39-49.9 RDW-CV (test code = 788-0) 13.5 % 12-15.5 PLT (test code = 777-3) See_Comment [Automated message] The system which generated this result transmitted reference range: 166 - 358 10*3/?L. The reference range was not used to interpret this result as normal/abnormal. MPV (test code = 48964-9) 9.8 fL 9.5-12.9 NRBC/100 WBC (test code = 2756127955) See_Comment [Automated message] The system which generated this result transmitted reference range: 0.0 - 10.0 /100 WBCs. The reference range was not used to interpret this result as normal/abnormal. NRBC x10^3 (test code = 3587191308) <0.01 See_Comment [Automated message] The system which generated this result transmitted reference range: 10*3/?L. The reference range was not used to interpret this result as normal/abnormal. GRAN MAT (NEUT) % (test code = 770-8) 66.2 % IMM GRAN % (test code = 4185120546) 0.60 % LYMPH % (test code = 736-9) 25.4 % MONO % (test code = 5905-5) 5.6 % EOS % (test code = 713-8) 1.9 % BASO % (test code = 706-2) 0.3 % GRAN MAT x10^3(ANC) (test code = 7852309797) 10.64 10*3/uL 1.88-7.09 H IMM GRAN x10^3 (test code = 6456265343) 0.09 10*3/uL 0-0.06 H LYMPH x10^3 (test code = 731-0) 4.09 10*3/uL 1.32-3.29 H MONO x10^3 (test code = 742-7) 0.90 10*3/uL 0.33-0.92 EOS x10^3 (test code = 711-2) 0.31 10*3/uL 0.03-0.39 BASO x10^3 (test code = 704-7) 0.05 10*3/uL 0.01-0.07 Lab Interpretation (test code = 48466-3) [facility]normal [facility] McKinneyUrinalysis2021-02-04 02:56:00* Test Item Value Reference Range Interpretation Comme nts APPEARANCE (test code = 7020187452) Hazy Clear A COLOR (test code = 4211898986) Yellow Yellow PH (test code = 0970654185) 4.8-8.0 SP GRAVITY (test code = 5104106336) 1.003-1.030 GLU U QUAL (test code = 3209851662) Normal Normal BLOOD (test code = 3415181853) Negative Negative KETONES (test code = 8069113820) Negative Negative PROTEIN (test code = 2887-8) Negative Negative UROBILIN (test code = 9014634348) Normal Normal BILIRUBIN (test code = 4404131972) Negative Negative NITRITE (test code = 8942323051) Negative Negative LEUK MARC (test code = 5546120194) Negative Negative RBC/HPF (test code = 3675131579) See_Comment [Automated [employer]] The system which generated this result transmitted reference range: 0 - 3 HPF. The reference range was not used to interpret this result as normal/abnormal. WBC/HPF (test code = 0595067482) See_Comment [Automated [employer]] The system which generated this result transmitted reference range: 0 - 5 HPF. The reference range was not used to interpret this result as normal/abnormal. BACTERIA (test code = 4437321874) Few Negative A MUCOUS (test code = 8763522218) Slight Negative LPF A SQ EPITH (test code = 2327612767) HPF YEAST BUD (test code = 4538636836) See_Comment H [Automated messa ge] The system which generated this result transmitted reference range: <=1 HPF. The reference range was not used to interpret this result as normal/abnormal. Lab Interpretation (test code = 55481-7) Abnormal [facility] [id number] 02:24:00* Test Item Value Reference Range Interpretation Comme nts TROPONIN I (test code = 0484909366) <0.012 See_Comment [Automated message] The system which [...] biotin. ? Lab Interpretation (test code = 78631-1) [facility]COVID[facility] (ID NOW RAPID TESTING)2020-08-11 02:15:00* Test Item Value Reference Range Interpretation Comme nts SARS-CoV-2 Rapid ID NOW (test code = 05572-7) Not Detected Not Detected DARWIN (test code = DARWIN) ID NOW COVID-19 As say is an isothermal nucleic acid amplification test intended for the qualitative detection of nucleic acid from SARS-CoV-2 viral RNA in nasopharyngeal ([employer]HEET [employer] SALESPERSON) specimens. It is used under Emergency Use [...] clinically indicated. Lab Interpretation (test code = 52321-1) Normal [facility] (NA, K, CL, CO2, GLUCOSE, BUN, CREATININE, CA)2020-08-11 02:13:00* Test Item Value Reference Range Interpretation Comme nts NA (test code = 1522805632) 137 mmol/L 135-145 K (test code = 2047332490) 4.0 mmol/L 3.5-5 CL (test code = 1284243569) 107 mmol/L 98-108 CO2 TOTAL (test code = 5221038393) 19 mmol/L 23-31 L AGAP (test code = 9813937389) 2-16 BUN (test code = 9255166370) 10 mg/dL 7-23 GLUCOSE (test code = 9286851566) 106 mg/dL 70-110 CREATININE (test code = 6036381354) 0.47 mg/dL 0.5-1.04 L CALCIUM (test code = 6393105289) 9.2 mg/dL 8.6-10.6 eGFR Calculation (Non-) (test code = 8991406998) mL/min/1.73m2 eGFR Calculation () (test code = 2431276544) mL/min/1.73m2 DARWIN (test code = DARWIN) Association [...] imaging tests). Lab Interpretation (test code = 94209-6) [facility]normal [facility] McKinneyHepatic Function Panel (ALB, T.PRO, BILI T, BU/BC, ALT, AST, ALK PHOS)2020-08-11 02:13:00* Test Item Value Reference Range Interpretation Comme nts TOTAL BILI (test code = 7907783485) 0.4 mg/dL 0.1-1.1 BILI UNCON (test code = 5212536626) 0.3 mg/dL 0.1-1.1 BILI CONJ (test code = 3021497267) 0.0 mg/dL 0-0.3 T PROTEIN (test code = 8441632901) 7.5 g/dL 6.3-8.2 ALBUMIN (test code = 7657375006) 4.4 g/dL 3.5-5 ALK PHOS (test code = 8112509722) 48 U/L 34-122 ALTv (test code = 1742-6) 12 U/L 5-35 AST(SGOT) (test code = 7604181706) 22 U/L 13-40 Lab Interpretation (test cod e = 09251-8) Normal [facility] McKinneyLipase Lluay4646-45-69 02:13:00* Test Item Value Reference Range Interpretation Comme nts LIPASE (test code = 0651302450) 78 U/L 0-220 Lab Interpretation (test cod e = 43227-6) Normal [facility] McKinneyLactic Acid Whole Jhzjh9432-78-41 02:05:00* Test Item Value Reference Range Interpretation Comme nts LACTIC ACID (test code = 9430766645) 1.47 mmol/L 0.5-2.2 Lab Interpretation (test cod e = 56571-0) [facility] 2 VW [id number] 14:31:40No acute bony abnormality. Soft tissue swelling. [...] [facility]report.[facility]OVID[facility] (ID NOW RAPID TESTING)2020-08-07 14:18:00* Test Item Value Reference Range Interpretation Comme [facility] SARS-CoV-2 Rapid ID NOW (test code = 53103-3) Not Detected Not Detected DARWIN (test code = DARWIN) ID NOW COVID-19 As say is an isothermal nucleic acid amplification test intended for the qualitative detection of nucleic acid from SARS-CoV-2 viral RNA in nasopharyngeal (SHEET MUSIC SALESPERSON) specimens. It is used under Emergency Use [...] clinically indicated. Lab Interpretation (test code = 53487-1) [facility]neyTROPONIN [id number] 02:54:00* Test Item Value Reference Range Interpretation Comme [facility] TROPONIN I (test code = 2098031011) <0.012 See_Comment [Automated message] The system which [...] biotin. ? Lab Interpretation (test code = 90758-0) [facility]LIPASE2020-12-25 02:37:00* Test Item Value Reference Range Interpretation Comme nts LIPASE (test code = 0403602795) 76 U/L 0-220 Lab Interpretation (test cod e = 44400-4) [facility]2020-12-25 01:54:00* Test Item Value Reference Range Interpretation Comme nts APPEARANCE (test code = 9980952200) Clear Clear COLOR (test code = 4559853804) Straw Yellow A PH (test code = 8077430129) 4.8-8.0 SP GRAVITY (test code = 1538900332) 1.003-1.030 GLU U QUAL (test code = 1464079906) Normal Normal BLOOD (test code = 9508126745) 3+ Negative A KETONES (test code = 1091101865) Negative Negative PROTEIN (test code = 2887-8) Negative Negative UROBILIN (test code = 2675221743) Normal Normal BILIRUBIN (test code = 0572267582) Negative Negative NITRITE (test code = 4500390719) Negative Negative LEUK MARC (test code = 8804181209) Negative Negative RBC/HPF (test code = 5413823197) See_Comment [Automated [employer]] The system which generated this result transmitted reference range: 0 - 3 HPF. The reference range was not used to interpret this result as normal/abnormal. WBC/HPF (test code = 5691741844) <1 See_Comment [Automated [employer]] The system which generated this result transmitted reference range: 0 - 5 HPF. The reference range was not used to interpret this result as normal/abnormal. BACTERIA (test code = 2322136323) Few Negative A MUCOUS (test code = 1738510953) Slight Negative LPF A SQ EPITH (test code = 6968219725) HPF Lab Interpretation (test code = 21461-7) Abnormal [facility] WITH [id number] 00:57:00* Test Item Value Reference Range Interpretation Comme nts WBC (test code = 6690-2) See_Comment [Automated [employer]] The system which generated this result transmitted reference range: 4.30 - 11.10 10*3/?L. The reference range was not used to interpret this result as normal/abnormal. RBC (test code = 789-8) See_Comment [Automated [employer] ge] The system which generated this [...] 34.0 g/dL 31.6-35.1 RDW-SD (test code = 17555-1) 41.7 fL 39-49.9 RDW-CV (test code = 788-0) 13.2 % 12-15.5 PLT (test code = 777-3) See_Comment [Automated messa ge] The system which generated this result transmitted reference range: 166 - 358 10*3/?L. The reference range was not used to interpret this result as normal/abnormal. MPV (test code = 35625-8) 9.4 fL 9.5-12.9 L NRBC/100 WBC (test code = 7258770881) See_Comment [Automated [employer] ssage] The system which generated this result transmitted reference range: 0.0 - 10.0 /100 WBCs. The reference range was not used to interpret this result as normal/abnormal. NRBC x10^3 (test code = 6500578707) <0.01 See_Comment [Automated messa ge] The system which generated this result transmitted reference range: 10*3/?L. The reference range was not used to interpret this result as normal/abnormal. GRAN MAT (NEUT) % (test code = 770-8) 51.8 % IMM GRAN % (test code = 2639883107) 0.50 % LYMPH % (test code = 736-9) 40.7 % MONO % (test code = 5905-5) 4.0 % EOS % (test code = 713-8) 2.5 % BASO % (test code = 706-2) 0.5 % GRAN MAT x10^3(ANC) (test code = 0939872849) 5.38 10*3/uL 1.88-7.09 IMM GRAN x10^3 (test code = 0673128464) 0.05 10*3/uL 0-0.06 LYMPH x10^3 (test code = 731-0) 4.22 10*3/uL 1.32-3.29 H MONO x10^3 (test code = 742-7) 0.42 10*3/uL 0.33-0.92 EOS x10^3 (test code = 711-2) 0.26 10*3/uL 0.03-0.39 BASO x10^3 (test code = 704-7) 0.05 10*3/uL 0.01-0.07 Lab Interpretation (test code = 02664-7) Abnormal [facility]AD,CLC OR [facility] ONLY - INFLUENZA A & B DIRECT [id number] 00:51:00* Test Item Value Reference Range Interpretation Comme nts Influenza A (test code = 11831-3) Negative Negative Influenza B (test code = 50833-5) Negative Negative Lab Interpretation (test cod e = 21717-2) Normal [facility]neyPOMO [id number] 00:51:00* Test Item Value Reference Range Interpretation Comme nts POCT PREG (test code = 1605) negative On board controls acceptable with C Line (test code = 3574) present POCT PREG LOT # (test code = 3575) [id number] POCT PREG TEST DATE ( test code = 3576) 11/04/2021 Lab Interpretation (test cod e = 12749-2) Normal [facility]neyTRMARYN [id number] 00:46:00* Test Item Value Reference Range Interpretation Comme nts TROPONIN I (test code = 2530178538) <0.012 See_Comment [Automated message] The system which [...] biotin. ? Lab Interpretation (test code = 85685-0) Normal [facility]neyBASI METABOLIC PANEL (NA, K, CL, CO2, GLUCOSE, BUN, CREATININE, CA)2020-07-01 00:46:00* Test Item Value Reference Range Interpretation Comme nts NA (test code = 1255797613) 141 mmol/L 135-145 K (test code = 8223154468) 3.8 mmol/L 3.5-5 CL (test code = 3227753004) 108 mmol/L 98-108 CO2 TOTAL (test code = 3321170750) 25 mmol/L 23-31 AGAP (test code = 0850645602) 2-16 BUN (test code = 1684185140) 10 mg/dL 7-23 GLUCOSE (test code = 9936446895) 92 mg/dL 70-110 CREATININE (test code = 8193936633) 0.58 mg/dL 0.5-1.04 CALCIUM (test code = 4581536389) 9.4 mg/dL 8.6-10.6 eGFR Calculation (Non-) (test code = 2451836627) mL/min/1.73m2 eGFR Calculation () (test code = 6321700167) mL/min/1.73m2 DARWIN (test code = DARWIN) Association [...] [facility] McKinneyN-TERMINAL [id number] 00:43:00* Test Item Value Reference Range Interpretation Comme nts NT-proBNP (test code = 1565210958) 332 pg/mL See_Comment H [Automated message] The system which generated this result transmitted reference range: <=125. The reference range was not used to interpret this result as normal/abnormal. DARWIN (test code = DARWIN) Biotin has been reported to cause a negative bias, interpret results relative to patient's use of biotin. Lab Interpretation (test code = 92588-2) Abnormal [facility] CHEST 1 [id number] 00:20:50No acute cardiopulmonary abnormality Preliminary Report Dictated [...] abovereport.[facility]neyCT CERVICAL SPINE WO [id number] 23:23:[address] EXAMINATION: CT [...] CT.[facility]neyPOCT [id number] 01:50:00* Test Item Value Reference Range Interpretation Comme nts POCT PREG (test code = 1605) Negative On board controls acceptable with C Line (test code = 3574) Present POCT PREG LOT # (test code = 3575) [id number] POCT PREG TEST DATE ( test code = 3576) 10/05/2021 Lab Interpretation (test cod e = 50841-9) Normal [facility] McKinneyTroponin [id number] 01:24:00* Test Item Value Reference Range Interpretation Comme [facility] TROPONIN I (test code = 4995796763) <0.012 See_Comment [Automated message] The system which [...] biotin. ? Lab Interpretation (test code = 96024-0) [facility] (ID NOW RAPID TESTING)2020-06-13 01:22:00* Test Item Value Reference Range Interpretation Comme nts SARS-CoV-2 Rapid ID NOW (test code = 46246-6) Not Detected Not Detected DARWIN (test code = DARWIN) ID NOW COVID-19 As say is an isothermal nucleic acid amplification test intended for the qualitative detection of nucleic acid from SARS-CoV-2 viral RNA in nasopharyngeal (SHEET MUSIC SALESPERSON) specimens. It is used under Emergency Use [...] clinically indicated. Lab Interpretation (test code = 40875-2) Normal [facility] McKinneyD-EISQO6762-45-56 01:16:00* Test Item Value Reference Range Interpretation Comments D-DIMER (test code = 6051985293) See_Comment [Automated message] The system which generated [...] a diagnosis. Lab Interpretation (test code = 81987-4) Normal [facility] Metabolic Panel (NA, K, CL, CO2, GLUCOSE, BUN, CREATININE, CA)2020-06-13 01:13:00* Test Item Value Reference Range Interpretation Comme nts NA (test code = 3206819021) 137 mmol/L 135-145 K (test code = 0886746010) 4.2 mmol/L 3.5-5 CL (test code = 7114430752) 103 mmol/L 98-108 CO2 TOTAL (test code = 0540346020) 25 mmol/L 23-31 AGAP (test code = 9710919669) 2-16 BUN (test code = 0657056370) 11 mg/dL 7-23 GLUCOSE (test code = 1863139781) 98 mg/dL 70-110 CREATININE (test code = 7490317053) 0.52 mg/dL 0.5-1.04 CALCIUM (test code = 6849055059) 10.3 mg/dL 8.6-10.6 eGFR Calculation (Non-) (test code = 9045964682) mL/min/1.73m2 eGFR Calculation () (test code = 7917619072) mL/min/1.73m2 DARWIN (test code = DARWIN) Association [...] [facility]neyHepatic Function Panel (ALB, T.PRO, BILI T, BU/BC, ALT, AST, ALK PHOS)2020-06-13 01:13:00* Test Item Value Reference Range Interpretation Comme nts TOTAL BILI (test code = 5781594237) 0.5 mg/dL 0.1-1.1 BILI UNCON (test code = 2993092395) 0.3 mg/dL 0.1-1.1 BILI CONJ (test code = 1049425197) 0.0 mg/dL 0-0.3 T PROTEIN (test code = 8896152062) 7.3 g/dL 6.3-8.2 ALBUMIN (test code = 2406289472) 4.2 g/dL 3.5-5 ALK PHOS (test code = 6009594504) 85 U/L 34-122 ALTv (test code = 1742-6) 66 U/L 5-35 H AST(SGOT) (test code = 5278280342) 32 U/L 13-40 Lab Interpretation (test cod e = 68800-1) Abnormal [facility] McKinneyLipase Wxknf2584-11-31 01:13:00* Test Item Value Reference Range Interpretation Comme nts LIPASE (test code = 1407685974) 60 U/L 0-220 Lab Interpretation (test cod e = 19963-7) Normal [facility] McKinneyUrinalysis2020-12-07 01:03:00* Test Item Value Reference Range Interpretation Comme nts APPEARANCE (test code = 6047778096) Clear Clear COLOR (test code = 3559198225) Straw Yellow A PH (test code = 6896271155) 4.8-8.0 SP GRAVITY (test code = 4604935647) 1.003-1.030 GLU U QUAL (test code = 0350472953) Normal Normal BLOOD (test code = 3963006552) Negative Negative KETONES (test code = 8273621971) Negative Negative PROTEIN (test code = 2887-8) Negative Negative UROBILIN (test code = 5205688374) Normal Normal BILIRUBIN (test code = 7980653574) Negative Negative NITRITE (test code = 3343375293) Negative Negative LEUK MARC (test code = 8216051814) Negative Negative RBC/HPF (test code = 7736555417) See_Comment [Automated messa ge] The system which generated this result transmitted reference range: 0 - 3 HPF. The reference range was not used to interpret this result as normal/abnormal. WBC/HPF (test code = 6864391880) See_Comment [Automated messa ge] The system which generated this result transmitted reference range: 0 - 5 HPF. The reference range was not used to interpret this result as normal/abnormal. BACTERIA (test code = 0964026449) Negative Negative MUCOUS (test code = 2544639459) Slight Negative LPF A SQ EPITH (test code = 1093929528) HPF Lab Interpretation (test code = 89045-0) Abnormal [facility] with Gytxatxdczkv3845-55-30 00:55:00* Test Item Value Reference Range Interpretation Comme nts WBC (test code = 6690-2) See_Comment H [Automated messa ge] The system which generated this result transmitted reference range: 4.30 - 11.10 10*3/?L. The reference range was not used to interpret this result as normal/abnormal. RBC (test code = 789-8) See_Comment [Automated [employer]] The system which generated this [...] 34.5 g/dL 31.6-35.1 RDW-SD (test code = 29115-5) 42.5 fL 39-49.9 RDW-CV (test code = 788-0) 13.5 % 12-15.5 PLT (test code = 777-3) See_Comment [Automated messa ge] The system which generated this result transmitted reference range: 166 - 358 10*3/?L. The reference range was not used to interpret this result as normal/abnormal. MPV (test code = 84882-0) 10.1 fL 9.5-12.9 NRBC/100 WBC (test code = 2445413949) See_Comment [Automated [employer]] The system which generated this result transmitted reference range: 0.0 - 10.0 /100 WBCs. The reference range was not used to interpret this result as normal/abnormal. NRBC x10^3 (test code = 8421098100) <0.01 See_Comment [Automated messa ge] The system which generated this result transmitted reference range: 10*3/?L. The reference range was not used to interpret this result as normal/abnormal. GRAN MAT (NEUT) % (test code = 770-8) 61.9 % IMM GRAN % (test code = 0411331879) 0.60 % LYMPH % (test code = 736-9) 30.6 % MONO % (test code = 5905-5) 5.2 % EOS % (test code = 713-8) 1.4 % BASO % (test code = 706-2) 0.3 % GRAN MAT x10^3(ANC) (test code = 2391014991) 8.03 10*3/uL 1.88-7.09 H IMM GRAN x10^3 (test code = 7996197906) 0.08 10*3/uL 0-0.06 H LYMPH x10^3 (test code = 731-0) 3.97 10*3/uL 1.32-3.29 H MONO x10^3 (test code = 742-7) 0.68 10*3/uL 0.33-0.92 EOS x10^3 (test code = 711-2) 0.18 10*3/uL 0.03-0.39 BASO x10^3 (test code = 704-7) 0.04 10*3/uL 0.01-0.07 Lab Interpretation (test code = 35529-4) [facility]normal [facility]COVID[facility] (ID NOW RAPID TESTING)2020-05-17 00:27:00* Test Item Value Reference Range Interpretation Comme nts SARS-CoV-2 Rapid ID NOW (test code = 00201-1) Not Detected Not Detected DARWIN (test code = DARWIN) ID NOW COVID-19 As say is an isothermal nucleic acid amplification test intended for the qualitative detection of nucleic acid from SARS-CoV-2 viral RNA in nasopharyngeal (SHEET MUSIC SALESPERSON) specimens. It is used under Emergency Use [...] clinically indicated. Lab Interpretation (test code = 50141-3) Normal [facility] (NA, K, CL, CO2, GLUCOSE, BUN, CREATININE, CA)2020-05-17 00:00:00* Test Item Value Reference Range Interpretation Comme nts NA (test code = 2101773405) 136 mmol/L 135-145 K (test code = 4469236866) 3.6 mmol/L 3.5-5 CL (test code = 5381742807) 103 mmol/L 98-108 CO2 TOTAL (test code = 3715231948) 26 mmol/L 23-31 AGAP (test code = 5507378671) 2-16 BUN (test code = 0719633668) 13 mg/dL 7-23 GLUCOSE (test code = 7362631632) 130 mg/dL 70-110 H CREATININE (test code = 0146403121) 0.58 mg/dL 0.5-1.04 CALCIUM (test code = 6656108556) 9.9 mg/dL 8.6-10.6 eGFR Calculation (Non-) (test code = 5996252692) mL/min/1.73m2 eGFR Calculation () (test code = 3124464413) mL/min/1.73m2 DARWIN (test code = DARWIN) Association [...] imaging tests). Lab Interpretation (test code = 36933-2) [facility]normal [facility]neyHep[facility] (ALB, T.PRO, BILI T, BU/BC, ALT, AST, ALK PHOS)2020-05-17 00:00:00* Test Item Value Reference Range Interpretation Comme nts TOTAL BILI (test code = 9902539841) 0.4 mg/dL 0.1-1.1 BILI UNCON (test code = 4374143962) 0.3 mg/dL 0.1-1.1 BILI CONJ (test code = 4547032915) 0.0 mg/dL 0-0.3 T PROTEIN (test code = 2499723744) 7.3 g/dL 6.3-8.2 ALBUMIN (test code = 8410525103) 4.3 g/dL 3.5-5 ALK PHOS (test code = 8107144620) 118 U/L 34-122 ALTv (test code = 1742-6) 119 U/L 5-35 H AST(SGOT) (test code = 8112525040) 47 U/L 13-40 H Lab Interpretation (test cod e = 52497-3) Abnormal [facility] McKinneyLipase [id number] 00:00:00* Test Item Value Reference Range Interpretation Comme nts LIPASE (test code = 2397139455) 70 U/L 0-220 Lab Interpretation (test cod e = 58936-0) Normal [facility] McKinneyCB with Rgiporfukjxz4679-65-99 23:49:00* Test Item Value Reference Range Interpretation Comme nts WBC (test code = 6690-2) See_Comment [Automated [employer]] The system which generated this result transmitted reference range: 4.30 - 11.10 10*3/?L. The reference range was not used to interpret this result as normal/abnormal. RBC (test code = 789-8) See_Comment [Automated [employer]] The system which generated this result transmitted [...] 33.3 g/dL 31.6-35.1 RDW-SD (test code = 39220-6) 42.8 fL 39-49.9 RDW-CV (test code = 788-0) 13.5 % 12-15.5 PLT (test code = 777-3) See_Comment [Automated [employer]] The system which generated this result transmitted reference range: 166 - 358 10*3/?L. The reference range was not used to interpret this result as normal/abnormal. MPV (test code = 96664-1) 9.8 fL 9.5-12.9 NRBC/100 WBC (test code = 3346258705) See_Comment [Automated me ssage] The system which generated this result transmitted reference range: 0.0 - 10.0 /100 WBCs. The reference range was not used to interpret this result as normal/abnormal. NRBC x10^3 (test code = 5633967822) <0.01 See_Comment [Automated me ssage] The system which generated this result transmitted reference range: 10*3/?L. The reference range was not used to interpret this result as normal/abnormal. GRAN MAT (NEUT) % (test code = 770-8) 62.5 % IMM GRAN % (test code = 5024634711) 0.50 % LYMPH % (test code = 736-9) 29.8 % MONO % (test code = 5905-5) 5.6 % EOS % (test code = 713-8) 1.1 % BASO % (test code = 706-2) 0.5 % GRAN MAT x10^3(ANC) (test code = 0874296307) 6.65 10*3/uL 1.88-7.09 IMM GRAN x10^3 (test code = 3360329385) 0.05 10*3/uL 0-0.06 LYMPH x10^3 (test code = 731-0) 3.17 10*3/uL 1.32-3.29 MONO x10^3 (test code = 742-7) 0.59 10*3/uL 0.33-0.92 EOS x10^3 (test code = 711-2) 0.12 10*3/uL 0.03-0.39 BASO x10^3 (test code = 704-7) 0.05 10*3/uL 0.01-0.07 [facility] McKinneyACETAMINOPHEN2020-11-08 08:24:00* Test Item Value Reference Range Interpretation Comme nts ACETAMINOP (test code = 5403737899) 21.0 ug/mL 10-30 DARWIN (test code = DARWIN) Toxic: Greater joan n 200 ug/mL @ 4 hour post ingestion or greater than 50 ug/mL @ 12 hour post ingestion Lab Interpretation (test code = 21028-0) Normal [facility] McKinneyETHANOL2020-11-08 06:37:00* Test Item Value Reference Range Interpretation Comme nts ALCOHOL (test code = 1440572364) <10 mg/dL DARWIN (test code = DARWNI) <10 Rfjkqrmw11-138 Toxic>100 Depression of CARTOON DESIGNER>400 Fatalities Reported [facility] McKinneyBasi Metabolic Panel (NA, K, CL, CO2, GLUCOSE, BUN, CREATININE, CA)2020-05-15 06:35:00* Test Item Value Reference Range Interpretation Comme nts NA (test code = 7138554257) 137 mmol/L 135-145 K (test code = 3352883512) 4.0 mmol/L 3.5-5 CL (test code = 0151998207) 106 mmol/L 98-108 CO2 TOTAL (test code = 6117262917) 25 mmol/L 23-31 AGAP (test code = 5665703980) 2-16 BUN (test code = 2175836005) 9 mg/dL 7-23 GLUCOSE (test code = 0040234919) 95 mg/dL 70-110 CREATININE (test code = 8354469962) 0.53 mg/dL 0.5-1.04 CALCIUM (test code = 9920371903) 9.0 mg/dL 8.6-10.6 eGFR Calculation (Non-) (test code = 1926413852) mL/min/1.73m2 eGFR Calculation () (test code = 4338839154) mL/min/1.73m2 DARWIN (test code = DARWIN) Association [...] [facility]neyHepatic Function Panel (ALB, T.PRO, BILI T, BU/BC, ALT, AST, ALK PHOS)2020-05-15 06:35:00* Test Item Value Reference Range Interpretation Comme nts TOTAL BILI (test code = 6972829125) 0.4 mg/dL 0.1-1.1 BILI UNCON (test code = 1513721608) 0.2 mg/dL 0.1-1.1 BILI CONJ (test code = 9202871124) 0.0 mg/dL 0-0.3 T PROTEIN (test code = 8338845877) 6.3 g/dL 6.3-8.2 ALBUMIN (test code = 4543881826) 3.8 g/dL 3.5-5 ALK PHOS (test code = 9489950120) 117 U/L 34-122 ALTv (test code = 1742-6) 179 U/L 5-35 H AST(SGOT) (test code = 8827016343) 194 U/L 13-40 H Lab Interpretation (test cod e = 77242-9) Abnormal [facility] McKinneyLipase Sngyb9234-18-28 06:35:00* Test Item Value Reference Range Interpretation Comme nts LIPASE (test code = 9708987032) 92 U/L 0-220 Lab Interpretation (test cod e = 90117-3) Normal [facility] McKinneyaPTT2020-11-08 06:22:00* Test Item Value Reference Range Interpretation Comme nts APTT Patient (test code = 3173-2) See_Comment [Automated message] The system which generated this result transmitted reference range: 23 - 38 Seconds. The reference range was not used to interpret this result as normal/abnormal. DARWIN (test code = DARWIN) The [facility] patient population mean normal value for aPTT is 30 seconds. Lab Interpretation (test code = 21828-0) Normal [facility] McKinneyUrinalysis2020-11-08 06:21:00* Test Item Value Reference Range Interpretation Comme nts APPEARANCE (test code = 4623134484) Clear Clear COLOR (test code = 1826356175) Yellow Yellow PH (test code = 9774195230) 4.8-8.0 SP GRAVITY (test code = 9672919982) 1.003-1.030 GLU U QUAL (test code = 9483793714) Normal Normal BLOOD (test code = 3696541668) Negative Negative KETONES (test code = 6155600389) Negative Negative PROTEIN (test code = 2887-8) Negative Negative UROBILIN (test code = 3486254559) Normal Normal BILIRUBIN (test code = 8028126413) Negative Negative NITRITE (test code = 4491338925) Negative Negative LEUK MARC (test code = 0506398863) Negative Negative RBC/HPF (test code = 7030755989) See_Comment [Automated [employer]] The system which generated this result transmitted reference range: 0 - 3 HPF. The reference range was not used to interpret this result as normal/abnormal. WBC/HPF (test code = 6739282319) <1 See_Comment [Automated [employer]] The system which generated this result transmitted reference range: 0 - 5 HPF. The reference range was not used to interpret this result as normal/abnormal. BACTERIA (test code = 4059598216) Negative Negative MUCOUS (test code = 1296394069) Slight Negative LPF A SQ EPITH (test code = 8677194877) HPF Lab Interpretation (test code = 95215-0) Abnormal [facility] McKinneyProthrombin Time (PT) / [id number] 06:20:00 * Test Item Value Reference Range Interpretation Comme [facility] PROTIME PATIENT (test code = 5964-2) See_Comment [Automated [employer]] The system which generated this result transmitted reference range: 12.0 - 14.7 Seconds. The reference range was not used to interpret this result as normal/abnormal. INR (test code = 6301-6) Normal INR <1.1; Warfarin Therapeutic range 2.0 to 3.0 or 2.5 to 3.5, depending upon the indications. Lab Interpretation (test code = 65380-3) Normal [facility] - DRUG SCREEN [id number] 06:19:00* Test Item Value Reference Range Interpretation Comme nts BENZO U (test code = 0046158100) Presumptive Positive Negative A ROSA U (test code = 1559886839) Negative Negative AMPHET (test code = 7047877960) Negative Negative THC (test code = 1564305497) Negative Negative METHADONE (test code = 1247271449) Negative Negative Meth U (test code = 1530405031) Negative Negative OPIATES (test code = 6894745692) Negative Negative Cocaine Metabolite (test code = 4086352586) Negative Negative PROPOXY (test code = 9808538928) Negative Negative Tric U (test code = 0003200612) Negative Negative PCP (test code = 7087257091) Negative Negative OXYCOD (test code = 9468479569) Negative Negative DARWIN (test code = DARWIN) [...] legal testing). Lab Interpretation (test code = 29087-2) Abnormal [facility] with Tftwyegmnuts9817-96-18 06:07:00* Test Item Value Reference Range Interpretation [...] 34.3 g/dL 31.6-35.1 RDW-SD (test code = 93694-9) 43.4 fL 39-49.9 RDW-CV (test code = 788-0) 13.7 % 12-15.5 PLT (test code = 777-3) See_Comment [Automated [employer] ge] The system which generated this result transmitted reference range: 166 - 358 10*3/?L. The reference range was not used to interpret this result as normal/abnormal. MPV (test code = 53628-8) 9.7 fL 9.5-12.9 NRBC/100 WBC (test code = 7036814718) See_Comment [Automated [employer] ssage] The system which generated this result transmitted reference range: 0.0 - 10.0 /100 WBCs. The reference range was not used to interpret this result as normal/abnormal. NRBC x10^3 (test code = 2821241420) <0.01 See_Comment [Automated messa ge] The system which generated this result transmitted reference range: 10*3/?L. The reference range was not used to interpret this result as normal/abnormal. GRAN MAT (NEUT) % (test code = 770-8) 50.6 % IMM GRAN % (test code = 3365635598) 0.20 % LYMPH % (test code = 736-9) 42.1 % MONO % (test code = 5905-5) 5.5 % EOS % (test code = 713-8) 1.2 % BASO % (test code = 706-2) 0.4 % GRAN MAT x10^3(ANC) (test code = 5104253207) 4.31 10*3/uL 1.88-7.09 IMM GRAN x10^3 (test code = 0753279263) <0.03 0-0.06 LYMPH x10^3 (test code = 731-0) 3.58 10*3/uL 1.32-3.29 H MONO x10^3 (test code = 742-7) 0.47 10*3/uL 0.33-0.92 EOS x10^3 (test code = 711-2) 0.10 10*3/uL 0.03-0.39 BASO x10^3 (test code = 704-7) 0.03 10*3/uL 0.01-0.07 Lab Interpretation (test code = 80798-2) [id number]:53:00* Test Item Value Reference Range Interpretation Comme nts POCT PREG (test code = 1605) Negative On board controls acceptable with C Line (test code = 3574) Present POCT PREG LOT # (test code = 3575) HCG [id number] POCT PREG TEST DATE ( test code = 3576) 10/05/2021 Lab Interpretation (test cod e = 47620-8) Normal [facility] History and Physical Notes Date/Time Note Provider [...] the ACR Incidental Findings Committee;Journal of the [employer] Volume 7, Issue 10, Pages 008-633, April 2010). CHEST 1 VW Result Date: [...] process is identified in the chest. RL: 2497 END OF REPORT Assessment and plan: Principal [...] Flako Mercado MD 02/16/2023 IM-INTERNAL MEDICINE STAFF [facility] Notes <thead> Date/Time Note Provider Source 2024-10-13 02:45:03 Pt given printed and verbal discharge instructions regarding chest pain and urinary problem in female. Pt verbalized understanding of instructions, pt awake alert oriented, resp reg unlabored, skin w/d, color appropriate for race, moves all ext well, pt encouraged to follow up with pcp. Advised to seek medical attention for new/prolonged/worsening of symptoms. No adverse reaction to meds given in ER noted upon discharge. PIV d'cd, dressing to site, catheter in tact. Awake, alert oriented, resp reg unlabored, skin w/d, pt leaving amb with steady gait, in no apparent distress. Jeana Pringle RN [facility] 2024-10-12 22:25:27 Pt arrived ambulatory without assist. Pt c/o chest pain that started around 8pm, and UTI symptoms that started yesterday. Shaneka Atkinson RN [facility] 2024-07-19 01:23:02 Pt given printed and verbal [...] with steady gait, in no apparent distress, [facility] 2024-07-19 00:57:31 ERP at bedside. [facility] 2024-07-19 00:09:25 07/18/24 2356 07/19/24 0000 07/19/24 0008 Orthostatic Vitals BP 132/56 (!) 139/92 (!) 157/112 BP Location Left arm Left arm Right leg Position Lying Sitting Standing Pulse 79 78 78 [facility] Jen Merrill RN [facility] 2024-07-18 23:44:12 Patient states "feeling like crap. Every time I stand up everything gets dizzy, black, and I feel like I am going to pass out." [facility] 2024-07-18 22:39:11 [facility] [...] and pain in back. Pt went to [facility] yesterday and they said she was low on potassium (was given 4 tablets of potassium). Pt took home medications today NYA Atkinson RN [facility] 2024-07-04 01:30:39 PT D/C home. GCS15, VS [...] someone drive her home. NYA Ayala RN [facility] 2024-07-03 19:51:20 Pt arrives ambulatory to ED c/o N/V/D x3 days and says today began having right side abdominal pain. NYA Rios RN [facility] 2024-06-21 02:58:12 Pt given printed and verbal [...] with steady gait, in no apparent distress. MACHINIST [facility] 2024-06-21 01:57:43 Pt arrives ambulatory to ED c/o "spider bite" upper right abdomen area. She says she squeezed it right before coming in and puss came out of it, leaving a black hole. So she came in to be evaled. NYA Rios RN [facility] 2024-06-15 00:27:31 Pt given printed and verbal [...] in no apparent distress, NYA Delgadillo RN [facility] 2024-06-14 22:55:00 Report given to JAMES Delgadillo NYA Emery RN [facility] 2024-06-14 21:23:27 Patient arrived ambulatory to ED c/o abdominal pain that started Saturday. Patient recently had heart cath placed on . States "haven't been keeping anything down. I can't even keep my medications down." NYA Merrill RN [facility] 2024-06-07 02:39:24 Pt given printed and verbal [...] in no apparent distress, NYA Delgadillo RN [facility] 2024-06-07 00:46:48 Report to Leona RAMIREZ. MACHINIST Adeline Montelongo RN [facility] 2024-06-06 22:01:17 Patient arrived ambulatory to ED c/o chest pain that started around 1900 tonight. Patient took 4 baby ASA OPHTHALMIC AIDE. Sharp chest pain that radiates to left shoulder. NYA Merrill RN [facility] 2024-05-28 13:02:38 Chief Complaint Patient presents with Shoulder Pain Pt complains of left shoulder pain that has been in pain for last 3 years. Pain is getting worse. No injury. No occupation. Pt has been doing PT for shoulder. She is also taking methocarbamol for pain however it is not helping. [facility] KelleeMarcio [facility] 2024-05-19 13:33:08 Patient given discharge instructions with readback, discussed prescriptions and follow up care. . Steady gait with NAD noted. NYA Davila RN [facility] 2024-05-19 11:42:01 Patient had a fall on Saturday and came into ED to be seen. Had pain meds and scan performed with no significant findings. Patient called her PCP and they told her to go to ER because she could have a concussion or just feel worse. NYA Cronin RN [facility] 2024-05-18 10:27:22 Chief Complaint Patient presents with Physical Patient is fasting. No other issues to discuss Jennifer Del Castillo MA II [facility] 2024-05-17 22:18:24 Pt given printed and verbal [...] in no apparent distress, NYA Delgadillo RN [facility] 2024-05-17 20:40:54 Okay to release information to father Piyush Demario per patient NYA Atkinson RN [facility] 2024-05-17 20:18:[address] scan and brought to 11 with RN and trauma team. Continuous cardiac monitoring and serial vital signs monitored by Santi RAMIREZ. Santi Delgadillo RN [facility] 2024-05-17 19:58:[address] scan with RN and trauma team. Continuous cardiac monitoring and serial vital signs monitored by Santi RAMIREZ. Santi Delgadillo RN [facility] 2024-05-17 18:55:00 Received report from Juliano RAMIREZ [facility] 2024-05-17 18:35:54 Report received from EMS. Trauma protocol initiated. Trauma team members at bedside, primary and secondary survey in progress. Pt placed on continuous cardiac monitoring, pulse oximetry, and serial vital signs. Wellington Dorantes RN [facility] 2024-05-17 18:31:04 Patient arrived by [facility], tripped over a floor tile and hit the occipital area. Unsure of LOC. Patient received 10mg of reglan and morphine 4mg OPHTHALMIC AIDE. [facility] Wellington Dorantes RN [facility] 2024-05-07 21:32:31 Patient discharged to home. Patient [...] in no apparent distress. Cameron Posada RN [facility] 2024-05-07 18:45:11 Pt arrived ambulatory with complaints of lower back pain, lower abdominal pain, and dysuria since yesterday. Took Tramadol at 2pm Aline Lou RN [facility] [id number] 06:28:23 THANK YOU FOR CHOOSING US FOR YOUR MEDICAL CARE AND IT WAS A PLEASURE TO TAKE CARE OF YOU: PUSHPA RODRIGUEZ, MSN, SHOVELER, INSTRUMENT TESTER- DIAGNOSIS: UTI, GASTROENTERITIS PRESCRIPTION: ZOFRAN AND MACROBID PER PRESCRIPTION DETAILS SENT TO [facility]: [place] GIVEN IN ER FOLLOW UP: [...] NO PHYSICIAN MONTSERRAT TERRAZAS MD Work Phone: [address] [phone] CARLOS SOLANO MD Work Phone: [address] [place] [phone] ENTER NAME IN NOTES OTHER Future Procedures [...] TRANSFER ROOM June 05, 2023 12:05am Ovidio mber 2022 Resuscitation Status June 05, 2023 [...] is unavailable Patient Instructions <tbody> Otitis Externa, Aeto-vv-Pccz Allergic Rhinitis, Adult, Ea sy-to-Read Ovarian Cyst, Zewp-mr-Hqim Abdominal Pain, Adult, Easy- to-Read Renal Mass Nonspecific Chest Pain, Adul t, Udsf-wn-Aijn Acetaminophen; Hydrocodone t ablets or capsules Sucralfate tablets Pantoprazole tablets Ciprofloxacin tablets Nonspecific Chest Pain, Adul t, Phyk-kh-Gldu Alprazolam tablets Trazodone Tablets Aspirin Tablets Urinary Tract Infection, [place] lt, Fcqm-bm-Kkmx Dehydration, Adult, Easy-to- Read Urinary Tract Infection, [place] lt, Nzdd-pp-Msbv [facility] [id number] 20:37:07 Pt given printed and verbal discharge [...] gait, in no apparent distress Renato Doan [facility]ijvm3387-03-27 18:50:37 Nurse Report Report given to renato. Chief complaint, assessment findings, infusion verify and orders reviewed. Plan of care discussed. Lola Reynoso RN Lola Reynoso [facility] HospitalGtcgio3518-82-03 17:27:35 Pt arrived ambulatory complains of abdominal pain and points to her left upper abdominal. Pt states that last time she had this type of pain it was pancreatitis. Reports pain started at 1300 and reports pain is 9/10 and hurts whenever she eats. Harriett Mejia [facility] HospitalCvynbd4604-46-42 11:11:13 Chief Complaint Patient presents with Shoulder Pain Left shoulder pain with limited range of motion x 6 months, takes OTC tylenol for the pain as needed but pain is getting worse. 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 Not working currently KelleeMarcio Xywneb7272-45-21 09:19:27 Chief Complaint Patient presents with Hospital F/U [facility] ER follow up with admission on 12/04/2023 for chest pains. She had a stent placed by Dr. Arthur. Jennifer Del Castillo MA II [facility] Lvwbab6617-12-19 10:49:31 Chief Complaint Patient presents with Anxiety Follow up on anxiety/depression. She states that it has gotten worse since last visit. She had an appointment with [facility] this morning and it was canceled due to internet outage. Jennifer Del Castillo MA II [facility] Injkde3498-56-77 13:21:02 Chief Complaint Patient presents with [facility] told her she needed to go to a different doctor because they could not give her anything else Marbella Oh LVN [facility]2024-04-05 00:41:45 Pt given printed and [...] & in no apparent distress. Becky Rios [facility] HospitalUpdebd5208-32-48 21:25:46 Pt arrived ambulatory but states feeling like she is going to pass out, Pt placed in ED wheelchair. Pt c/o " I have pain in my back on the left side, it mark when I pee, Im nauseous, I feel like Im going to pass out and I have been crapping on myself." Shaneka Atkinson [facility] HospitalOuakit7925-36-57 22:58:41 Pt discharged with diagnosis of RUQ abd pain and chronic abd pain. Printed and verbal instructions reviewed with and given to pt. Prescriptions given x 2. Pt verbalized understanding of teaching, medications, and recommended follow-up. Denies questions or concerns at this time. Pt ambulatory at discharge. Appears in no apparent distress. No ataxia noted. MACHINIST Adeline Floyd [facility] HospitalQogvcs6563-79-69 19:46:03 Pt states sharp pain to the RLQ that started today around noon, pt denies any urinary symptoms, vomiting X 2 MACHINIST Razia Yost [place] [id number] 00:14:00 Awake, alert oriented X4, respiratory even [...] noted upon discharge Pt ambulated to the [facility] [place] with steady gait Razia Yost [facility] HospitalPonrvz8986-61-58 23:06:10 Received report from Evy RAMIREZ, assuming care. T Brandy Lou [place] [address]-09-02 22:38:[address] scan done. Patient states LQ abdominal pain now 01/14. T Guanaco Caceres [place] [address]-09-02 22:00:00 POCT test negative. Patient states RLQ abdominal pain improved briefly with IV Morphine administration, then returned at 03/17. Dr Richards informed, and patient medicated as ordered with Fentanyl 75 mcg slow IVP. [place] [address]-09-02 21:00:00 Medicated as per order with Zofran 4 mg slow IVP and Morphine 4 mg slow IVP for RLQ abdominal pain 03/17. [place] [address]-09-02 20:17:52 Pt arrived ambulatory with complaints of RLQ abd pain since yesterday. Pt reports N/V/D. Last took Tylenol at 3pm. Denies dysuria but reports frequency. Hx: Anxiety, Depression, PTSD, Pancreatitis T Aline Lou [place] [id number] 01:30:22 Discharged home ambulatory. Home instructions given. John Ventura [place] [address]-08-25 19:32:44 Pt CO of N/V, left lower back pain, painful urination and diarrhea since yesterday, states she was admitted last week for pancreatitis. Pt already promethazine tablets today with no relief. Jean Carlos Alegria [facility] Ibitwn8240-14-73 19:22:00 [facility] Emergency Department Note Patient Name: Charity Roca Date of : 1980 43 year old female Treatment Room: ME3/ME3 Primary Care Physician: Carlos Solano Patient Escorted by: Family [5] Mode of Arrival: Personal means [1] EMS Treatment Prior to ED Arrival: OPHTHALMIC AIDE treatment: None Travel and Exposure Screening: Symptoms [...] History provided by: Patient and medical records work study student used: No Abdominal Pain Pain location: Generalized [...] adenoma on noncontrast imaging. RL: 460 AFC: 31898 Lab Results: Lab Results CBC WITH DIFF [...] POCT PREG TEST DATE COMP. METABOLIC PANEL (98814) NA 139 135 - 145 mmol/L K [...] CONTRAST CBC WITH DIFF COMP. METABOLIC PANEL (98844) LIPASE URINALYSIS POCT TEST Orders Placed This [...] signed by: Olivia Garcia MD 03/02/23 0122 [facility] 02:22:03 Pt given printed and verbal discharge [...] in no apparent distress, T Linda Ayala RN[facility]ronRqufwg2390-93-26 22:53:36 Pt arrived ambulatory with complaints of [...] be from her anxiety. T Aline Lou [facility] HospitalNzsndj1611-74-27 15:59:15 Problem: Pain Goal: Control of pain [...] Goal: Effective communication Outcome: Adequate for discharge [facility] Beata Lamar [facility] HospitalHhzrnb5749-14-74 00:21:19 Problem: Pain Goal: Control of pain [...] Goal: Effective communication Outcome: Progressing as expected [facility]vnwsh6287-63-51 16:55:55 Problem: Pain Goal: Control of pain [...] communication Outcome: Progressing as expected [place] [address]-08-12 03:35:03 Problem: Pain Goal: Control of pain [...] communication Outcome: Progressing as expected [place] [address]-08-11 19:41:18 Nurse Report Report given to JAMES Gatica. Chief complaint, assessment findings, infusion verify and orders reviewed. Plan of care discussed with both nurses. Stacie Man RN [facility] Stacie Man [facility] HospitalZwjvuy5336-03-07 13:40:01 CC: patient presents to the ER [...] amb without assistance. Appears in no distress. [place] [address]-08-11 13:23:00Associated Order(s): EKG-12 Lead ROUTINE ONCE Pre-Procedure Diagnose(s): Chest pain, unspecified type Post-Procedure Diagnose(s): Acute pancreatitis, unspecified complication status, unspecified pancreatitis type [facility] Emergency Department Note Patient Name: Charity Roca Date of : 1980 42 year old female Treatment Room: [place] [address] Primary Care Physician: Carlos Solano Patient Escorted by: Self [9] Mode of Arrival: Personal means [1] EMS Treatment Prior to ED Arrival: OPHTHALMIC AIDE treatment: None Chief Complaint: Chief Complaint Patient [...] the ACR Incidental Findings Committee;Journal of the [employer] Volume 7, Issue 10, Pages 774-898April 2010). CHEST 1 VW Final Result ORDERING [...] the chest. RL: 4750 END OF REPORT Lab Results: reviewed by [...] 0.01 - 0.07 10*3/uL COMP. METABOLIC PANEL (56688) - Abnormal NA 138 135 - 145 [...] INTERPRETATION CBC WITH DIFF COMP. METABOLIC PANEL (65082) LIPASE Orders Placed This Encounter Medications ibuprofen [...] ED Physician in the absence of a mold closer: yes Previous ECG: Previous ECG: Unavailable Interpretation: [...] this a planned re-admission?: No Treatment Team: [facility] [[id number]] Is this patient COVID positive or a patient under investigation (PUI)?: No Electronically signed by: Leeanne Wise NP 02/15/231910 Associated attestation - Bushra Rios DO - 02/16/2023 7:30 AM CDT I was personally available for consultation in the Emergency Department during this encounter and patient evaluation by Leeanne Wise. [facility]
[2024-10-17] MEDS ORDERED: KETOROLAC 30 MG/ML INJ ONE (02:03)
[2024-10-17] MEDS ORDERED: ONDANSETRON 4 MG/2 ML VIAL ONE ×2 (02:03→03:14)
[2024-10-17] MEDS ORDERED: NA CHLORIDE 0.9% 1,000 ML ONE (02:03)
[2024-10-17] MEDS ORDERED: MORPHINE 4 MG/ML SYR ONE ×2 (02:03→03:14)
[2024-10-17 02:42] LABS: Specific Gravity 1.007 (1.005-1.030)
[2024-10-17 02:43] LABS: Specific Gravity 1.007 (1.005-1.030); Sqamous Epithelial <5 /HPF (None Seen); Urine Bacteria None Seen /HPF (<20); Urine Bilirubin NEGATIVE (Negative); Urine Blood Negative (Negative); Urine Clarity Turbid (Clear); Urine Color Colorless (Yellow); Urine Culture Reflex Order NOT NEEDED; Urine Glucose NEGATIVE (Negative); Urine Ketones NEGATIVE (Negative); Urine Microscopic Reflex YN ORDER UMIC; Urine Nitrite NEGATIVE (Negative); Urine Protein NEGATIVE (Negative); Urine RBC <5 /HPF (None Seen); Urine Urobilinogen Normal (Normal); Urine WBC <5 /HPF (<5); Urine pH 5.5 (5.0-7.0)
[2024-10-17 02:44] LABS: Absolute Basophils 0.1 K/uL (0-0.5); Absolute Eosinophils 0.2 K/uL (0-0.5); Absolute Lymphocytes (CBC) 2.4 K/uL (0.7-4.9); Absolute Monocytes 0.6 K/uL (0.1-1.3); Absolute Neutrophil 7.2 K/uL (1.8-8.0); Basophils % 0.6 % (0-1.3); Eosinophils % 1.6 % (0-4.4); Hematocrit 36.9 % (36.0-45.0); Hemoglobin 12.2 g/dL (12.0-15.0); Lymphocytes % 23.2 % (15.3-44.8); MCHC 33.1 g/dL (32.0-36.0); MCV 78.6 fL (80-100); MPV 7.7 fL (7.6-11.3); Monocytes % 5.4 % (3.3-12.3); Neutrophils % 69.2 % (41.7-73.7); Nucleated Red Blood Cells % 0.2 % (0-0); Platelets 364 thou/uL (152-406); RBC Red Blood Cell Count 4.69 M/uL (3.86-4.86); Red Cell Distribution Width 19.7 % (12.1-15.2)
[2024-10-17 02:57] LABS: Albumin 3.1 g/dL (3.4-5.0); Albumin/Globulin Ratio 0.8 (1.1-1.8); Anion Gap 8.1 mEq/L (5.0-15.0); Bilirubin Total 0.2 mg/dL (0.2-1.0); Globulin 3.7 g/dL (2.3-3.5); Potassium 4.1 mEq/L (3.5-5.1); Protein, Total 6.8 g/dL (6.4-8.2)
--- NOTE | 2024-10-17 03:03 | ER ---
Nurse's Notes [facility] Name: Charity Hanks Age: 44 yrs Sex: Female : 1980 Arrival Date: 10/16/2024 Time: 21:25 Bed DX3 Private MD: Diagnosis: UTI/ Urinary tract infection, site not specified Presentation: 10/16 23:04 Chief complaint: Patient states: bilateral flank pain, nausea X1 week. Coronavirus lg3 screen: Client denies travel out of the [place] in the last 14 days. At this time, the client does not indicate any symptoms associated with coronavirus-19. Ebola Screen: No symptoms or risks identified at this time. Initial Sepsis Screen: Does the patient meet any 2 criteria? No. Patient's initial sepsis screen is negative. Does the patient have a suspected source of infection? No. Patient's initial sepsis screen is negative. Risk Assessment: Do you want to hurt yourself or someone else? Patient reports no desire to harm self or others. Onset of symptoms is unknown. 23:04 Method Of Arrival: Ambulatory lg3 23:04 Acuity: CARLOS 3 lg3 Triage Assessment: 23:05 General: Appears in no apparent distress. comfortable, Behavior is calm, cooperative. lg3 Pain: Complains of pain in low back area. EENT: No deficits noted. No signs and/or symptoms were reported regarding the EENT system. Neuro: No deficits noted. Lang Agitation-Sedation Scale (RASS): 0 - Alert and Calm Level of Consciousness is awake, alert, obeys commands, Oriented to person, place, time, situation. Cardiovascular: No deficits noted. Denies chest pain, shortness of breath, Capillary refill < 3 seconds Clubbing of nail beds is absent JVD is absent Patient's skin is warm and dry. Respiratory: No deficits noted. Airway is patent Respiratory effort is even, unlabored, Respiratory pattern is regular, symmetrical. GI: No deficits noted. Abdomen is round non-distended, obese. : Reports burning with urination, urgency, urinary frequency. Derm: No deficits noted. No signs and/or symptoms reported regarding the dermatologic system. Skin is intact, is healthy with good turgor, Skin is dry, Skin is normal, Skin temperature is warm. Musculoskeletal: No deficits noted. Circulation, motion, and sensation intact. Range of motion: intact in all extremities, Reports pain in low back area. Historical: - Allergies: 23:05 No Known Allergies; lg3 - Home Meds: 23:05 Plavix Oral [Active]; aspirin 81 mg Oral capsule [Active]; pantoprazole oral [Active]; lg3 Metoprolol Tartrate Oral [Active]; Xanax Oral [Active]; Robaxin Oral [Active]; - PMHx: 23:05 Anxiety; depressive disorder; Myocardial infarction; Pancreatitis; PTSD; Hypertensive lg3 disorder; - PSHx: 23:05 cardiac stent; lg3 - Immunization history:: Adult Immunizations up to date. - Infectious Disease History:: Denies. - Social history:: Smoking status: Patient reports the use of cigarette tobacco products, smokes one-half pack cigarettes per day, Patient/guardian denies using alcohol, street drugs. Screenin:09 [facility] ED Fall Risk Assessment (Adult) History of falling in the last 3 months, lg3 including since admission No falls in past 3 months (0 pts) Confusion or Disorientation No (0 pts) Intoxicated or Sedated No (0 pts) Impaired Gait No (0 pts) Mobility Assist Device Used No (0 pt) Altered Elimination No (0 pt) Score/Fall Risk Level 0 - 2 = Low Risk Oriented to surroundings, Maintained a safe environment, Educated pt \T\ family on fall prevention, incl call for assistance when getting out of bed, Assessed \T\ reinforced patient's understanding of fall precautions. Abuse screen: Denies threats or abuse. Denies injuries from another. Nutritional screening: No deficits noted. Tuberculosis screening: No symptoms or risk factors identified. Assessment: 23:09 General: see triage assesssment. lg3 Vital Signs: 23:04 BP 142 / 87; Pulse 66; Resp 17; Temp 97.1(TE); Pulse Ox 100% on R/A; Weight 108.86 kg lg3 (R); Height 5 ft. 2 in. (R); 23:04 Body Mass Index 43.90 (108.86 kg, 157.48 cm) lg3 ED Course: 21:28 Patient arrived in ED. jj6 22:02 Wellington Downs FNP-C [facility]5 22:02 Johny Chahal MD is Attending Physician. dr5 23:05 Triage completed. lg3 23:05 Arm band placed on right wrist. lg3 23:09 Patient has correct armband on for positive identification. lg3 04 02:10 Inserted saline lock: 22 gauge in right forearm, using aseptic technique. Blood lg3 collected. Flushed with 10 mL NS. 03:20 No provider procedures requiring assistance completed. IV discontinued, intact, lg3 bleeding controlled, No redness/swelling at site. Pressure dressing applied. Administered Medications: 02:11 Drug: TORadol - Ketorolac IVP 15 mg IVP once Route: IVP; Site: left forearm; lg3 03:20 Follow up: Response: No adverse reaction lg3 02:11 Drug: Ondansetron IVP 4 mg IVP once; over 2 minutes Route: IVP; Site: left forearm; lg3 03:20 Follow up: Response: No adverse reaction lg3 02:11 Drug: morphine IVP or IV 4 mg IVP once over 4 mins Route: IVP; Infused Over: 4 mins; lg3 Site: left forearm; 03:20 Follow up: Response: No adverse reaction; Marked relief of symptoms lg3 02:11 Drug: NS 0.9% IV 1000 ml IV at 1 bolus Per protocol; to be given as a bolus over 60 lg3 minutes Route: IV; Rate: 1 bolus; Site: left forearm; 03:20 Follow up: Response: No adverse reaction; IV Status: Completed infusion; IV Intake: lg3 1000ml 03:19 Drug: morphine IVP or IV 4 mg IVP once over 4 mins Route: IVP; Infused Over: 4 mins; lg3 Site: left antecubital; 03:20 Follow up: Response: No adverse reaction; Medication administered at discharge. lg3 03:19 Drug: Ondansetron IVP 4 mg IVP once; over 2 minutes Route: IVP; Site: left forearm; lg3 03:20 Follow up: Response: No adverse reaction; Medication administered at discharge. lg3 Medication: 10/16 23:09 VIS not applicable for this client. lg3 Intake: 04 03:20 IV: 1000ml; Total: 1000ml. lg3 Outcome: 03:02 Discharge ordered by . dr5 03:20 Discharged to home ambulatory, lg3 03:20 Condition: stable 03:20 Discharge instructions given to patient, Instructed on discharge instructions, follow up and referral plans. medication usage, Demonstrated understanding of instructions, follow-up care, medications, Prescriptions given X 1, 03:21 Patient left the ED. lg3 Signatures: Toyin Deng RN RN lg3 Sarah Majano6 Wellington Downs, UTILITY WORKER DRIVER-C UTILITY WORKER DRIVER-[id number] Corrections: (The following items were deleted from the chart) 10/16 23:07 23:05 PMHx: Anxiety; lg3 lg3
--- NOTE | 2024-10-17 03:03 | EDPHYS ---
Physician Documentation [facility] Name: Charity Hanks Age: 44 yrs Sex: Female : 1980 Arrival Date: 10/16/2024 Time: 21:25 Bed DX3 Private MD: ED Physician Johny Chahal HPI: 10/16 23:06 This 44 yrs old Female presents to ER via Ambulatory with complaints of Low dr5 Back Pain, Pain With Urination, Pt states she vomited up blood twice today. 23:06 The patient presents with pain that is acute, with no known mechanism of injury. dr5 Patient is a 44 year old female with hx of GERD coming in with dysuria that's been going on for the past two days. Pt was here 6 days ago for same symptoms. Pt also reports episode of vomiting today. Pt denies fever.. Historical: - Allergies: 23:05 No Known Allergies; lg3 - Home Meds: 23:05 Plavix Oral [Active]; aspirin 81 mg Oral capsule [Active]; pantoprazole oral [Active]; lg3 Metoprolol Tartrate Oral [Active]; Xanax Oral [Active]; Robaxin Oral [Active]; - PMHx: 23:05 Anxiety; depressive disorder; Myocardial infarction; Pancreatitis; PTSD; Hypertensive lg3 disorder; - PSHx: 23:05 cardiac stent; lg3 - Immunization history:: Adult Immunizations up to date. - Infectious Disease History:: Denies. - Social history:: Smoking status: Patient reports the use of cigarette tobacco products, smokes one-half pack cigarettes per day, Patient/guardian denies using alcohol, street drugs. ROS: 10/17 02:45 Constitutional: as per hpi dr5 Exam: 02:45 Constitutional: This is a well developed, well nourished patient who is awake, alert, dr5 and in no acute distress. Head/Face: Normocephalic, atraumatic. Eyes: Pupils equal round and reactive to light, extra-ocular motions intact. Lids and lashes normal. Conjunctiva and sclera are non-icteric and not injected. Cornea within normal limits. Periorbital areas with no swelling, redness, or edema. Neck: Trachea midline, no thyromegaly or masses palpated, and no cervical lymphadenopathy. Supple, full range of motion without nuchal rigidity, or vertebral point tenderness. No Meningismus. Chest/axilla: Normal chest wall appearance and motion. Nontender with no deformity. No lesions are appreciated. Cardiovascular: Regular rate and rhythm with a normal S1 and S2. Normal PMI, no JVD. No pulse deficits. Respiratory: Lungs have equal breath sounds bilaterally, clear to auscultation. No rales, rhonchi or wheezes noted. No increased work of breathing, no retractions or nasal flaring. Abdomen/GI: Soft, non-tender, non-distended Back: No spinal tenderness. No costovertebral tenderness. Full range of motion. Skin: Warm, dry with normal turgor. Normal color with no rashes, no lesions, and no evidence of cellulitis. Neuro: Awake and alert, GCS 15, oriented to person, place, time, and situation. Cranial nerves II-XII grossly intact. Motor strength 5/5 in all extremities. Sensory grossly intact. Cerebellar exam normal. Normal gait. Vital Signs: 10/16 23:04 BP 142 / 87; Pulse 66; Resp 17; Temp 97.1(TE); Pulse Ox 100% on R/A; Weight 108.86 kg lg3 (R); Height 5 ft. 2 in. (R); 23:04 Body Mass Index 43.90 (108.86 kg, 157.48 cm) lg3 MDM: 22:02 Medical Screening Exam initiated dr5 10/17 02:45 Differential diagnosis: arthritis, strain, UTI. Data reviewed: vital signs, nurses dr5 notes. I considered the following discharge prescriptions or medication management in the emergency department Medications were administered in the Emergency Department. See MAR. Care significantly affected by the following chronic conditions: Pancreatitis, HTN, PTSD, Anxiety. Care significantly affected by the following Social Determinants of Health: Poor access to healthcare and/or lack of insurance, Poor access to transportation, Problems related to employment. Counseling: I had a detailed discussion with the patient and/or guardian regarding the historical points, exam findings, and any diagnostic results supporting the discharge/admit diagnosis, the presence of at least one elevated blood pressure reading (>120/80) during this emergency department visit, lab results, the need for outpatient follow up, for definitive care, a family practitioner, to return to the emergency department if symptoms worsen or persist or if there are any questions or concerns that arise at home. Medication response: Response to treatment: the patient's symptoms have markedly improved after treatment. ED course: Given patient's continued urinary tract infection-like symptoms and turbid clarity will give patient short course of Macrobid to take. Will have patient follow-up primary care doctor. Recommended increasing fluid intake and alternating tylenol / motrin as needed for pain. All questions answered. Patient is drinking prior to discharge.. 10/16 23:06 Order name: CBC with Diff; Complete Time: 02:46 dr5 10/16 23:06 Order name: CMP; Complete Time: 03:02 dr5 10/16 23:06 Order name: Lipase; Complete Time: 03:02 dr5 10/16 23:06 Order name: Test, Urine; Complete Time: 02:43 dr5 10/16 23:06 Order name: Urinalysis w/ reflexes; Complete Time: 02:43 dr5 10/16 23:06 Order name: IV Saline Lock; Complete Time: 03:19 dr5 10/16 23:06 Order name: Labs collected and sent; Complete Time: 03:19 dr5 Administered Medications: 02:11 Drug: TORadol - Ketorolac IVP 15 mg IVP once Route: IVP; Site: left forearm; lg3 03:20 Follow up: Response: No adverse reaction lg3 02:11 Drug: Ondansetron IVP 4 mg IVP once; over 2 minutes Route: IVP; Site: left forearm; lg3 03:20 Follow up: Response: No adverse reaction lg3 02:11 Drug: morphine IVP or IV 4 mg IVP once over 4 mins Route: IVP; Infused Over: 4 mins; lg3 Site: left forearm; 03:20 Follow up: Response: No adverse reaction; Marked relief of symptoms lg3 02:11 Drug: NS 0.9% IV 1000 ml IV at 1 bolus Per protocol; to be given as a bolus over 60 lg3 minutes Route: IV; Rate: 1 bolus; Site: left forearm; 03:20 Follow up: Response: No adverse reaction; IV Status: Completed infusion; IV Intake: lg3 1000ml 03:19 Drug: morphine IVP or IV 4 mg IVP once over 4 mins Route: IVP; Infused Over: 4 mins; lg3 Site: left antecubital; 03:20 Follow up: Response: No adverse reaction; Medication administered at discharge. lg3 03:19 Drug: Ondansetron IVP 4 mg IVP once; over 2 minutes Route: IVP; Site: left forearm; lg3 03:20 Follow up: Response: No adverse reaction; Medication administered at discharge. lg3 Disposition Summary: 10/17/24 03:02 Discharge Ordered Notes: Location: Home dr5 Condition: Stable dr5 Diagnosis - UTI/ Urinary tract infection, site not specified dr5 Followup: dr5 - With: Emergency Department - When: As needed - Reason: Worsening of condition Followup: dr5 - With: Private Physician - When: 1 - 2 days - Reason: Recheck today's complaints, Continuance of care, Re-evaluation by your physician Discharge Instructions: - Discharge Summary Sheet dr5 - Urinary Tract Infection, Adult, Aron-rr-Quns dr5 Forms: - Medication Reconciliation Form dr5 - Antibiotic Education dr5 - Prescription Opioid Use dr5 - Patient Portal Instructions dr5 - Leadership Thank You Letter dr5 Prescriptions: - Macrobid 100 mg Oral Capsule - take 1 capsule ORAL route every 12 hours for 10 days; 20 capsule; Refills: 0, dr5 Product Selection Permitted Signatures: Dispatcher [employer] Toyin Conklin RN RN lg3 Wellington Downs, SPORTS MANAGEMENT INTERN-C SPORTS MANAGEMENT INTERN-Cdr5 Corrections: (The following items were deleted from the chart) 10/16 23:07 23:05 PMHx: Anxiety; lg3 lg3 23:51 23:51 CBC+H.LAB.BRZ ordered. EDMS EDMS 23:51 23:51 COMPREHENSIVE METABOLIC PANEL+C.LAB.BRZ ordered. EDMS EDMS 23:51 23:51 LIPASE+C.LAB.BRZ ordered. EDMS EDMS 23:51 23:51 Test, Urine+UC.LAB.BRZ ordered. EDMS EDMS 23:51 23:51 Urinalysis+U.LAB.BRZ ordered. EDMS EDMS
[2024-10-17 03:57] VITALS: BP 142/87; TEMP 97.1; O2SAT 100
== END 2024-10-17 03:21 | disposition home or self-care (01) ==
LOC: ER 21:25
DX: N39.0 Urinary tract infection, site not specified (principal); R11.10 Vomiting, unspecified; I25.2 Old myocardial infarction; Z72.0 Tobacco use; Z79.01 Long term (current) use of anticoagulants; Z79.82 Long term (current) use of aspirin; Z95.818 Presence of other cardiac implants and grafts
CPT/HCPCS: 85025; 81001; 36415; 81025; 83690; 80053; 99284; J2405 ×2; J7030

== ENCOUNTER 2024-10-27 20:24 | Emergency (ER) | payer OTHER ==
--- OUTSIDE RECORDS SUMMARY | 2024-10-27 20:43 | XMS REPORT | Continuity of Care Document ---
Author Name Unknown Address [address] [facility] [address] [place] [address] Organization [facility] Address [address] [facility] [place] [address] Support Name Relationship Address Phone RACHEL CASH Father Unknown Unavailable PHYSICIAN, NO Primary Care Physician Unknown Unav ailable MD MORA POLLOCK A Emergency Provider [address] [place] [address] JAN COX natural parent [address] [address] MD SHERIDAN MCMANUS Emergency Provider [facility], [place] [address] CHARITY ROCA Guarantor [address] [place] [address] MD RIDDH[place] [address] MD AN IRIZARRY Emergency Provider [facility], [place] [address] MD CARLOS SOLANO A Primary Care Physician [address] [facility] 3 [place] [address] OTHER, ENTER NAME IN NOTES Primary Care Physician Unknown Unavailable MD Arelis Kern Emergency Provider [address] [place] [address] MD SHAN BUSCH Attending Provider [address] [place] [address] PIYUSH JUAREZ parent [address] [place] [address] MD TAVARES MG JR, JR. Emergency Provider [address] [place] [address] Leyda Villa Mother Unknown Unavailable Rachel Cox Father [address] [place] [address] one else per patient, No Emergency Contact Unknown Unavailable Rachel Cox Father [address] [place] [address] 1 Personal Relationship Unknown Unavai lable Unavailable Personal Relationship Unknown Unavai lable Rachel Cox Father 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 Name Role Phone OTHER, ENTER NAME IN NOTES Primary Care Physicia n Unavailable CHRISTINA PAGE Attending Clinician Unavailable CYNTHIA ROMEO Attending Clinician Unavailable JOANNE MONTES Attending Clinician Unavailable CATHY STRICKLAND Attending Clinician Unavailable TYLER MAN Attending Clinician Unavailable FLORINDA REYES Attending Clinician Unavailable LEVAR BARKER Attending Clinician Unavailable LEVAR BARKER Attending Clinician Unavailable Levar Barker MD Attending Clinician [phone] OLIVIA GARCIA Attending Clinician Unavailable OLIVIA GARCIA Attending Clinician Unavailable Olivia Garcia MD Attending Clinician [phone] GISELLE OSORIO Attending Clinician Unavailable MD BEHZAD Attending Clinician UnavailCONRADO Nagel Attending Clinician Unavailable JÚNIOR FARRELL Attending Clinician Unavailable Saleem EDWARD Attending Clinician Unavailable Saleem EDWARD Attending Clinician Unavailable Saleem Perez Attending Clinician [phone] RADIOLOGY, DEPT Attending Clinician Unavailable SANDY GARCIA Attending Clinician Unavailable SANDY GARCIA Attending Clinician Unavailable Sandy Walker Attending Clinician [phone] ANNALISE WRIGHT Attending Clinician Unavailable Annalise Wright PA-C Attending Clinician [phone] LAB90 Attending Clinician Unavailable Alesha Roy MD Attending Clinician + ARELIS KERN Attending Clinician UnavailFARTUN Weir Attending Clinician Unavailable TAVARES MG JR Attending Clinician Unachristina Rojo NP, Leigh Attending Clinician [phone] COSMO Attending Clinician Unavailable SHERIDAN MCMANUS Attending Clinician UnavailROBERTO Melgar Attending Clinician Unavailable Roberto Richards MD Attending Clinician + SHAN BUSCH Attending Clinician Unavailable RIDDHI MYLES Attending Clinician Unavailabl AN Velez Attending Clinician Unavailable NARAYAN NARVAEZ Attending Clinician Unavailable Narayan Narvaez DO Attending Clinician + BRITTNI PADGETT Attending Clinician Unavailable Brittni Elam Attending Clinician [phone] JESÚS MONTERO Attending Clinician Unavailable Leeanne Wise NP Attending Clinician + Jesús Montero MD Attending Clinician + FELTON Attending Clinician Unavailable MELIDA LONGORIA Attending Clinician Unavailable Melida Longoria MD Attending Clinician + WIL MCQUEEN Attending Clinician Unavailable Wil Joseph Attending Clinician + DEE WANG Attending Clinician Unavaila ble Dee Bell Attending Clinician +07-11 Doctor Unassigned, [place] Attending Clinician U shannanailable CEM CHOI Attending Clinician Unavailable Cem Choi MD Attending Clinician [phone] Shelley Rosas RN Attending Clinician [phone] Bal Cuevas Attending Clinician +06 BAL HASSAN Attending Clinician Unavailable Tremaine Jon Attending Clinician [phone] TREMAINE BECERRA Attending Clinician Unavailable LEEANNE WISE Attending Clinician Unavailable MORA POLLOCK Attending Clinician Unavailable Best Rodríguez R Attending Clinician [phone] BE[facility] T[facility]OR Attending Clinician Unavailable Marbella Rizo RN Attending Clinician Unavailab bailee VILLANUEVA, Abdias Attending Clinician [phone] ABDIAS ROBERTSON Attending Clinician Unavailable Kamryn Sheppard [...] Clinician Unavailable OLIVIA GARCIA Admitting Clinician Unavailable Saleem EDWARD Admitting Clinician Unavailable SANDY GARCIA Admitting Clinician Unavailable ANNALISE WRIGHT Admitting Clinician Unavailable OLIVIA GARCIA Admitting Clinician Unavailable ROBERTO RICHARDS Admitting Clinician Unavailable SHAN BUSCH Admitting Clinician Unavailable RIDDHI MYLES Admitting Clinician Unav ailable NARAYAN NARVAEZ Admitting Clinician Unavailable JESÚS MONTERO Admitting Clinician Unavailable Jesús Montero MD Admitting Clinician [phone] FELTON Admitting Clinician Unavailable MELIDA LONGORIA Admitting [...] Expirati on Date Source SILVER 5 [facility] 94 [id number] 2024 00:00:00 [employer] W/ KELLEE BUCKLEY OON [id number] 2023 00:00:00 HIM [employer]BS BLUE ADVANTAGE HMO [id number] 2020 00:00:00 Problems Condition Name Condition Details Condition Category Status Onset Date Resolution Date Last Treatment Date Treating Clinician Comments Source Generalize d abdominal pain Generalize d abdominal pain Disease Active 2023-07 00:00: 00 [facility] Coronary artery disease Coronary artery [...] Active 12-02 00:00: 00 Kellee Buckley - Shivania khris PTSD (post-trau matic stress disorder) PTSD (post-trau matic stress disorder) Disease Active 12-02 00:00: 00 Kellee Buckley - Externa l Elevated brain natriureti c peptide (BNP) level Elevated brain natriureti c peptide (BNP) level Disease Active 2020-07 00:00: 00 [facility] Cigarette smoker Cigarette smoker Disease Active 2020-07 0 00:00: 00 [facility] Family history of early CAD Family history of early CAD Disease Active 2020-07 0- 00:00: 00 [facility] Primary hypertensi on Primary hypertensi on Disease Active 2020-07 0 00:00: 00 [facility] Elevated brain natriureti c peptide (BNP) level Elevated brain natriureti c peptide (BNP) level Disease Active 2020-07 0- 00:00: 00 [facility] Snores Snores Disease Active 2020-07 0 00:00: 00 [facility] Morbid obesity with body mass index of 40.0-49.9 Morbid obesity with body mass index of 40.0-49.9 Disease Active 2020-07 0 00:00: 00 [facility] Abdominal pain Problem [facility] Acute coronary syndrome without high troponin Problem [facility] Adrenal mass Problem [facility] Ad[facility]al nodule [facility] Encounter for counseling regarding advance directives [facility] Allergic rhinitis [facility] Angina pectoris Problem [facility] Anxiety and depression Problem [facility] Gastroente ritis [facility] Malaise Problem [facility] Otitis externa of left ear Problem [facility] Cyst of ovary [facility] Post traumatic stress disorder (PTSD) Problem [facility] Tobacco abuse [facility] Urinary tract infection [facility] No known active problems No known active problems Disease [facility] Allergies, Adverse Reactions, Alerts Allergy Name Allergy Type Status Severity Reaction(s) Onset Date Inactive Date Treating Clinician Comments Source NO KNOWN ALLERGIE S Drug Class Active [facility] Social History Social Habit Start Date Stop Date Quantity Comments Source History of tobacco use [facility] Gender identity [facility] ASSERTION Possible [facility] History of Occupation [facility] Sexual orientation Saleem Buckley - External Alcoholic beverage intake 2024-10-23 00:00:00 2024-10-23 00:00:00 Current drinker of alcohol (finding) Kellee [...] cigarettes/ day from 2 packs per day [facility] Exposure to SARS-CoV-2 (event) 2021-12-30 00:00:00 2022-01-09 16:34:00 Unable to assess [facility] Education 2021-04-07 00:00:00 2021-04-07 00:00:00 13 [facility] Sex assigned at 1980 00:00:00 1980 00:00:00 Kellee Leiva External Smoking Status Start Date Stop Date Source Smokes tobacco daily 2023-10-28 00:00:00 Kellee Leiva External Unknown if ever smoked [facility] Medications Ordered Medication Name Filled Medication Name Start Date Stop Date Current Medication? Ordering Clinician Indication Dosage Frequency Signature (SIG) Comments Components Source iopamidol (ISOVUE 370-500 mL) injection 100 mL 10-24 04:30: 00 10-24 04:30 :00 No [id number] 100mL 100 mL, Intravenou s, ONCE, 1 dose, On Sat10/23/24 at 2330, Routine [facility] cefTRIAXone (ROCEPHIN) 1,000 mg in water for injection, sterile 10 mL IV Push 10-24 03:00: 00 10-24 02:54 :00 No 1000mg 1,000 mg, Intravenou s, ONCE, 1 dose, On Sat10/23/24 at 2200, 10 mL, Reason for Anti-Infec tive: Empiric Therapy for Suspected Infection, Empiric Therapy Site: Urine, Duration of therapy: Once (ED) [facility] NaCl 0.9% (NS) bolus infusion 1,000 mL 10-24 01:30: 00 10-24 04:03 :00 No 1000mL at 999 mL/hr, 1,000 mL, IV Infusion, ONCE, 1 dose, On Sat10/23/24 at 2030, STAT [facility] ondansetron (ZOFRAN (PF)) injection 4 mg 10-24 01:30: 00 10-24 02:26 :00 No 4mg 4 mg, Slow IV Push, ONCE, 1 dose, On Sat10/23/24 at 2029, Administer over 2-5 Minutes, 2 mL [facility] morpHINE (4 mg/mL) injection 6 mg 10-24 01:30: 00 10-24 02:22 :00 No 6mg 6 mg, Slow IV Push, ONCE, 1 dose, On Sat10/23/24 at 2030, STAT [facility] hydrOXYzine Pamoate 50 MG oral Capsule 10-23 10:46: 10 10-23 00:00 :00 No [id number] 50mg Q.5D Take 1 capsule (50 mg total) by mouth as needed in the morning and 1 capsule (50 mg total) as needed in the evening for anxiety. Kellee pinedo Sertraline HCl 200 MG oral Capsule 10-23 10:16: 17 Yes 1{capsu le} QD Take 1 capsule by mouth daily. Kellee pinedo famotidine (PEPCID) 20 mg tablet 10-23 00:00: 00 Yes [id number] 20mg Take 1 tablet by mouth in the morning and 1 tablet in the evening. [facility] ondansetron 4 mg disintegrat ing tablet 10-23 00:00: 00 Yes [id number] 4mg Take 1 tablet by mouth every 12 (twelve) hours as needed for Nausea and Vomiting (N/V). [facility] hydrOXYzine Pamoate 50 MG oral Capsule 10-23 00:00: 00 Yes [id number] 50mg Q.5D Take 1 capsule (50 mg total) by mouth as needed in the morning and 1 capsule (50 mg total) as needed in the evening for anxiety. Kellee pinedo Eszopiclone 2 MG oral Tablet 18 00:00: 00 Yes [id number] 2mg QD Take 1 tablet (2 mg total) by mouth nightly Take immediatel y before bedtime. Kellee pinedo Ascorbic Acid (Vitamin C) 250 MG oral Tablet 10-23 00:00: 00 Yes [id number] 250mg QD Take 1 tablet (250 mg total) by mouth daily. Kellee pinedo cefdinir 300 mg capsule 10-23 00:00: 00 11-01 04:59 :00 Yes [id number] 300mg Take 1 capsule by mouth in the morning and 1 capsule in the evening. Do all this for 8 days. [facility] HYDROcodone -acetaminop hen 5-325 mg tablet 10-23 00:00: 00 10-31 04:59 :00 Yes [id number] 1{tbl} Take 1 tablet by mouth every 6 (six) hours as needed for Pain (scale 7-10) for up to 7 days. Indication s: acute pain [facility] Methocarbam ol 750 MG oral Tablet 10-20 00:00: 00 Yes [id number] 750mg QD Take 1 tablet (750 mg total) by mouth daily. Kellee pinedo Belsomra 20 MG oral Tablet 15 00:00: 00 10-23 00:00 :00 No [id number] 1{tbl} QD TAKE 1 TABLET BY MOUTH EVERY DAY AT NIGHT Kellee pinedo Ketorolac Tromethamin e 10 MG oral Tablet 10 00:00: 00 Yes Kellee pinedo morphine (2 mg/mL) injection 2 mg 08 07:30: 00 10-13 07:35 :00 No 2mg 2 mg, Slow IV Push, ONCE, 1 dose, On Sat10/13/24 at 0230, Routine [facility] ondansetron (ZOFRAN (PF)) injection 4 mg 10-13 05:15: 00 10-13 05:20 :00 No 4mg 4 mg, Slow IV Push, ONCE, 1 dose, On Sat10/13/24 at 0015, Administer over 2-5 Minutes, 2 mL [facility] morphine (2 mg/mL) injection 2 mg 10-13 05:15: 00 10-13 05:18 :00 No 2mg 2 mg, Slow IV Push, ONCE, 1 dose, On Sat10/13/24 at 0015, Routine [facility] aspirin chewable tablet 243 mg 10-13 04:00: 00 10-13 04:13 :00 No 243mg 243 mg, Oral, Once, 1 dose, On Sat10/12/24 at 2300, Routine [facility] nitroglycer in (NITROSTAT) sublingual tablet 0.4 mg 10-13 03:55: 07 Yes .4mg 0.4 mg, Sublingual , Q5MIN PRN, 3 doses, Starting on Sat10/12/24 at 2255, Until Discontinu ed, ROSELYN, Chest pain [facility] Haloperidol 1 MG oral Tablet 10-09 00:00: 00 Yes TAKE 1 ORAL TABLET AT BEDTIME FOR 2 WEEKS INCREASE TO 2 ORAL TABLETS AT BEDTIME AFTER 2 WEEKS. Kellee pinedo hydrOXYzine HCl 10 MG oral Tablet 10-09 00:00: 00 10-23 00:00 :00 No Kellee pinedo Haloperidol 0.5 MG oral Tablet 07 00:00: 00 10-23 00:00 :00 No .5mg Take 1 tablet (0.5 mg total) by mouth at bedtime. Kellee pinedo Methocarbam ol 750 MG oral Tablet -03 00:00: 00 Yes [id number] 750mg Q.25D TAKE 1 TABLET (750 MG TOTAL) BY MOUTH 4 TIMES DAILY. Kellee pinedo Belsomra 20 MG oral Tablet 3-03 00:00: 00 Yes [id number] 1{tbl} QD TAKE 1 TABLET BY MOUTH EVERY DAY AT NIGHT Kellee pinedo Aspirin Low Dose 81 MG oral Tablet Delayed Response 09-01 00:00: 00 Yes [id number] 81mg QD TAKE 1 TABLET BY MOUTH EVERY DAY Kellee pinedo Ipratropium (ATROVENT) 0.02 % inhalation Solution 08-25 00:00: 00 10-23 00:00 :00 No 500ug Inhale 2.5 mL (500 mcg total) into the lungs. Kellee pinedo Roflumilast 500 MCG oral Tablet 08-25 00:00: 00 10-23 00:00 :00 No Take by mouth. Kellee pinedo traMADol-Ac etaminophen 37.5-325 MG oral Tablet 08-25 00:00: 00 10-23 00:00 :00 No Take by mouth. Kellee pinedo Albuterol (PROVENTIL) (2.5 MG/3ML) 0.083% inhalation Inhalant Solution 08-25 00:00: 00 10-23 00:00 :00 No USE 1 VIAL IN NEBULIZER EVERY 6 HOURS Kellee pinedo Wixela Inhub 500-50 MCG/ACT inhalation AEROSOL POWDER, BREATH ACTIVATED 08-20 00:00: 00 10-23 00:00 :00 No INHALE 1 PUFF TWICE A DAY FOR 60 DAYS Kellee pinedo methylPREDN ISolone 4 MG oral Tablet Therapy Pack 08-05 00:00: 00 Yes [id number] 1{bebeto} Take 1 bebeto by mouth See Admin Instructio ns Use as directed. Kellee pinedo Guaifenesin (Mucinex) 600 MG oral Tablet 12 Hour Sustained Release 08-05 00:00: 00 Yes [id number] 1200mg Q.5D Take 2 tablets (1,200 mg total) by mouth 2 times daily. Kellee pinedo Albuterol HFA 108 (90 Base) MCG/ACT IN AERS 08-05 00:00: 00 10-23 00:00 :00 No [id number] 2{puff} Q.25D Inhale 2 puffs into the lungs every 6 hours as needed for wheezing or shortness of breath. Kellee pinedo Belsomra 20 MG oral Tablet 08-04 00:00: 00 Yes [id number] 1{tbl} QD TAKE 1 TABLET BY MOUTH EVERY DAY AT NIGHT Kellee pinedo Aspirin Low Dose 81 MG oral Tablet Delayed Response 08-04 00:00: 00 Yes [id number] 81mg QD TAKE 1 TABLET BY MOUTH [...] dose, On 07/19/24 at 0200, Routine [facility] ipratropium -albuteroL (DUONEB) 0.5 mg-3 mg(2.5 mg base)/3 mL nebulizer solution 3 mL 07-19 08:00: 00 07-19 07:04 :00 No 3mL 3 mL, Inhalation , ONCE, 1 dose, On 07/19/24 at 0200, Routine [facility] azithromyci n (ZITHROMAX) tablet 500 mg 07-19 07:00: 00 07-19 07:05 :00 No 500mg 500 mg, Oral, ONCE, 1 dose, On 07/19/24 at 0100, ROSELYN, Reason for Anti-Infec tive: Documented Infection, Documented Infection Site: Respirator y, Duration of Therapy: Once (ED) [facility] iopamidol (ISOVUE 370-500 mL) injection 75 mL 07-19 06:45: 00 07-19 06:45 :00 No [id number] 75mL 75 mL, Intravenou s, ONCE, 1 dose, On 07/19/24 at 0045, Routine [facility] nitroglycer in (NITROL) 2 % ointment 0.5 Inch 07-19 06:00: 00 07-19 05:11 :00 No .5[in_u s] 0.5 Inch, Transderma l (Apply To Skin), ONCE, 1 dose, On 07/19/24 at 0000, [facility] ketorolac (TORADOL) injection 15 mg 07-19 06:00: 00 07-19 05:09 :00 No 15mg 15 mg, Slow IV Push, ONCE, 1 dose, On 07/19/24 at 0000, [facility] azithromyci n (ZITHROMAX Z-BEBETO) 250 mg tablet 07-19 00:00: 00 Yes [id number] 250mg Take 1 tablet by mouth SEE-INSTRU CTIONS. Take 500 mg day 1, then 250 mg days 2 to 5. [facility] predniSONE 20 mg tablet 07-19 00:00: 00 Yes [id number] 1 PO BID x 4 days [facility] Sertraline HCl 50 MG oral Tablet 07-10 00:00: 00 10-23 00:00 :00 No [id number] TAKE 1 TABLET BY MOUTH DAILY TAKE IN ADDITION TO 100 MG TABLET FOR A TOTAL DOSE OF 150 MG DAILY. Kellee pinedo Sertraline HCl 100 MG oral Tablet 07-10 00:00: 00 10-23 00:00 :00 No [id number] TAKE 1 TABLET BY MOUTH EVERY MORNING TAKE IN ADDITION TO 50 MG TABLET FOR A TOTAL DOSE OF 150 MG DAILY. Kellee pinedo iopamidol (ISOVUE 370-500 mL) injection 100 mL 2023-07 06:45: 00 07-04 06:45 :00 No [id number] 100mL 100 mL, Intravenou s, ONCE, 1 dose, On Sat07/04/24 at 0045, Routine [facility] morpHINE (4 mg/mL) injection 4 mg 2023-07 06:30: 00 07-04 06:29 :00 No 4mg 4 mg, Slow IV Push, ONCE, 1 dose, On Sat07/04/24 at 0030, [facility] (PHENERGAN) 12.5 mg in NS 50 mL IV piggyback (CNR) 2023-07 05:15: 00 07-04 05:30 :00 No 12.5mg 12.5 mg, IV Piggyback, at 200 mL/hr Administer over 15 Minutes, ONCE, 1 dose, On Sat07/03/24 at 2315, [facility] morpHINE (4 mg/mL) injection 4 mg 2023-07 03:30: 00 07-04 03:49 :00 No 4mg 4 mg, Slow IV Push, ONCE, 1 dose, On Sat07/03/24 at 2130, STAT [facility] ondansetron (ZOFRAN (PF)) injection 4 mg 2023-07 03:30: 00 07-04 03:50 :00 No 4mg 4 mg, Slow IV Push, ONCE, 1 dose, On Sat07/03/24 at 2130, Administer over 2-5 Minutes, 2 mL [facility] NaCl 0.9% (NS) IV infusion 1,000 mL 2023-07 03:18: 00 07-04 04:56 :00 No 1000mL at 999 mL/hr, Intravenou s, ONCE, 1 dose, On Sat07/03/24 at 2130, [facility] sodium chloride (NS) injection 5 mL 2023-07 02:16: 03 Yes 5mL 5 mL, Intravenou s, PRN, Starting on Sat07/03/24 at 2016, Until Discontinu ed, Routine, IV line flushing [facility] benzonatate 100 mg capsule 2023-07 00:00: 00 Yes [id number] 100mg Take 1 capsule by mouth 3 (three) times daily as needed for Cough. [facility] proMETHazin e 25 mg tablet 2023-07 00:00: 00 Yes [id number] 25mg Take 1 tablet by mouth every 6 (six) hours as needed for Nausea and Vomiting (N/V). [facility] dicyclomine 10 mg capsule 2023-07 00:00: 00 Yes [id number] 10mg Take 1 capsule by mouth 3 (three) times daily as needed for Abdominal pain. [facility] Gabapentin 300 MG oral Capsule 2023-07 00:00: 00 Yes 1 cap po 30-60 min prior to MRI. Kellee pinedo cephALEXin (KEFLEX) capsule 500 mg 2023-07 08:45: 00 06-21 08:53 :00 No 500mg 500 mg, Oral, ONCE, 1 dose, On 06/21/24 at 0245, ROSELYN, Reason for Anti-Infec tive: Documented Infection, Documented Infection Site: Skin / Soft Tissue, Duration of Therapy: Once (ED) [facility] doxycycline hyclate (Vibramycin ) capsule 100 mg 2023-07 08:45: 00 06-21 08:53 :00 No 100mg 100 mg, Oral, ONCE, 1 dose, On 06/21/24 at 0245, ROSELYN, Reason for Anti-Infec tive: Documented Infection, Documented Infection Site: Skin / Soft Tissue, Duration of Therapy: Once (ED) [facility] doxycycline hyclate 100 mg capsule 2023-07 00:00: 00 06-29 05:59 :00 No [id number] 100mg Take 1 capsule by mouth in the morning and 1 capsule in the evening. Do all this for 7 days. [facility] cephALEXin 500 mg capsule 2023-07 00:00: 00 06-29 05:59 :00 No [id number] 500mg Take 1 capsule by mouth 4 (four) times daily for 7 days. [facility] iopamidol (ISOVUE 370-500 mL) injection 100 mL 2023-07 06:30: 00 06-15 06:30 :00 No [id number] 100mL 100 mL, Intravenou s, ONCE, 1 dose, On Sat06/15/24 at 0030, Routine [facility] morpHINE (4 mg/mL) injection 4 mg 2023-07 06:00: 00 06-15 05:57 :00 No 4mg 4 mg, Slow IV Push, ONCE, 1 dose, On Sat06/15/24 at 0000, STAT [facility] proMETHazin e (PHENERGAN) 12.5 mg in NS 50 mL IV piggyback (CNR) 2023-07 05:15: 00 06-15 05:56 :00 No 12.5mg 12.5 mg, IV Piggyback, at 200 mL/hr Administer over 15 Minutes, ONCE, 1 dose, On 06/14/24 at 2315, ROSELYN [facility] NaCl 0.9% (NS) IV infusion 1,000 mL 2023-07 04:30: 00 06-15 05:28 :00 No 1000mL at 999 mL/hr, Intravenou s, ONCE, 1 dose, On 06/14/24 at 2230, Routine [facility] fentanyl PF (SUBLIMAZE (PF)) injection 50 mcg 2023-07 04:00: 00 06-15 04:23 :00 No 50ug 50 mcg, Slow IV Push, ONCE, 1 dose, On Sat06/14/24 at 2200, Routine [facility] famotidine (PEPCID (PF)) injection 20 mg 2023-07 03:30: 00 06-15 04:18 :00 No 20mg 20 mg, Slow IV Push, ONCE, 1 dose, On Sat06/14/24 at 2130, ROSELYN [facility] ondansetron (ZOFRAN (PF)) injection 4 mg 2023-07 03:30: 00 06-15 04:20 :00 No 4mg 4 mg, Slow IV Push, ONCE, 1 dose, On 06/14/24 at 2130, Administer over 2-5 Minutes, 2 mL [facility] proMETHazin e 25 mg tablet 2023-07 00:00: 00 Yes [id number] 25mg Take 1 tablet by mouth every 6 (six) hours as needed for Nausea and Vomiting (N/V). [facility] morpHINE (4 mg/mL) injection 4 mg 2023-07 08:15: 00 06-07 08:11 :00 No 4mg 4 mg, Slow IV Push, ONCE, 1 dose, On 06/07/24 at 0215, STAT [facility] ondansetron (ZOFRAN (PF)) injection 4 mg 2023-07 05:15: 00 06-07 05:23 :00 No 4mg 4 mg, Slow IV Push, ONCE, 1 dose, On 06/06/24 at 2315, Administer over 2-5 Minutes, 2 mL [facility] morpHINE (4 mg/mL) injection 4 mg 2023-07 05:15: 00 06-07 05:21 :00 No 4mg 4 mg, Slow IV Push, ONCE, 1 dose, On 06/06/24 at 2315, STAT [facility] nitroglycer in (NITROSTAT) sublingual tablet 0.4 mg 2023-07 05:08: 35 Yes .4mg 0.4 mg, Sublingual , Q5MIN PRN, 3 doses, Starting on 06/06/24 at 2308, Until Discontinu ed, ROSELYN, Chest pain [facility] hydrOXYzine Pamoate 50 MG oral Capsule 2023-07 13:02: 35 Yes [id number] 50mg Q.5D Take 1 capsule (50 mg total) by mouth 2 times daily as needed for anxiety. Kellee pinedo Vitamin D, Ergocalcife rol, 1.25 MG (07517 UT) oral Capsule 2023-07 00:00: 00 Yes [id number] 93916R Q1W Take 1 capsule (50,000 units total) by mouth once a week. Kellee pinedo ondansetron (ZOFRAN-ODT ) disintegrat ing tablet 4 mg 2023-07 20:15: 00 05-19 19:27 :00 No 4mg 4 mg, Oral, ONCE, 1 dose, On Sat05/19/24 at 1415, Routine [facility] HYDROcodone -acetaminop hen (NORCO 5) tablet 1 tablet 2023-07 18:00: 00 05-19 19:27 :00 No 1{tbl} 1 tablet, Oral, ONCE, 1 dose, On Sat05/19/24 at 1200, [facility] ondansetron 4 mg disintegrat ing tablet 2023-07 00:00: 00 Yes [id number] 4mg Take 1 tablet by mouth every 8 (eight) hours as needed for Nausea and Vomiting (N/V). [facility] hydrOXYzine Pamoate 50 MG oral Capsule 2023-07 10:26: 29 Yes [id number] 50mg Q.5D Take 1 capsule (50 mg total) by mouth 2 times daily as needed for anxiety. Kellee pinedo ondansetron (ZOFRAN (PF)) injection 4 mg 2023-07 03:45: 00 05-18 03:42 :00 No 4mg 4 mg, Slow IV Push, ONCE, 1 dose, On Sat05/17/24 at 2145, [facility] morpHINE (4 mg/mL) injection 4 mg 2023-07 03:45: 00 05-18 03:42 :00 No 4mg 4 mg, Slow IV Push, ONCE, 1 dose, On Sat05/17/24 at 2145, STAT [facility] ondansetron (ZOFRAN (PF)) injection 4 mg 2023-07 01:00: 00 05-18 01:21 :00 No 4mg 4 mg, Slow IV Push, ONCE, 1 dose, On Sat05/17/24 at 1900, [facility] fentanyl PF (SUBLIMAZE (PF)) injection 50 mcg 2023-07 01:00: 00 05-18 01:21 :00 No 50ug 50 mcg, Slow IV Push, ONCE, 1 dose, On 05/17/24 at 1900, STAT [facility] Suvorexant (Belsomra) 20 MG oral Tablet 2023-07 00:00: 00 Yes [id number] 1{tbl} QD Take 1 tablet by mouth nightly. Kellee pinedo Methocarbam ol 750 MG oral Tablet 2023-07 00:00: 00 Yes [id number] 750mg Q.25D Take 1 tablet (750 mg total) by mouth 4 times daily. Kellee pinedo Acetaminoph en-Codeine 300-30 MG oral Tablet 2023-07 00:00: 00 Yes [id number] Kellee pinedo Lorazepam (ATIVAN) 0.5 MG oral Tablet tablet 2023-07 00:00: 00 Yes [id number] .5mg Q.5D Take 1 tablet (0.5 mg total) by mouth 2 times daily as needed for anxiety. Kellee pinedo Sertraline HCl 50 MG oral Tablet 2023-07 00:00: 00 Yes [id number] 50mg QD Take 1 tablet (50 mg total) by mouth daily Take in addition to 100 mg tablet for a total dose of 150 mg daily. Kellee pinedo Sertraline HCl 100 MG oral Tablet 2023-07 00:00: 00 Yes [id number] 100mg Take 1 tablet (100 mg total) by mouth every morning Take in addition to 50 mg tablet for a total dose of 150 mg daily. Kellee pinedo Isosorbide Mononitrate CR 30 MG oral TABLET SR 24 HR 2023-07 00:00: 00 Yes [id number] Kellee pinedo ondansetron (ZOFRAN (PF)) injection 4 mg 2023-07 01:30: 00 05-08 00:31 :00 No 4mg 4 mg, Slow IV Push, ONCE, 1 dose, On [place] 05/07/24 at 2030, [facility] morpHINE (4 mg/mL) injection 4 mg 2023-07 01:30: 00 05-08 01:20 :00 No 4mg 4 mg, Slow IV Push, ONCE, 1 dose, On [place] 05/07/24 at 2030, STAT [facility] ketorolac (TORADOL) injection 15 mg 2023-07 01:30: 00 05-08 00:30 :00 No 15mg 15 mg, Slow IV Push, ONCE, 1 dose, On [place] 05/07/24 at 2030, [facility] phenazopyri [facility]ine 200 mg tablet 2023-07 00:00: 00 Yes [id number] 200mg Take 1 tablet by mouth in the morning and 1 tablet at noon and 1 tablet in the evening. [facility] Rosuvastati n Calcium 20 MG oral Tablet 2023-07 00:00: 00 Yes 20mg QD Take 1 tablet (20 mg total) by mouth daily. Kellee pinedo Metoprolol Succinate 25 MG oral TABLET SR 24 HR 2023-07 00:00: 00 Yes [id number] 25mg QD Take 1 tablet (25 mg total) by mouth daily. Kellee pinedo Dicyclomine HCl 20 MG oral Tablet 2023-07 00:00: 00 Yes Kellee pinedo Ondansetron (ZOFRAN) 4 MG oral TABLET DISPERSIBLE 2023-07 00:00: 00 Yes 4mg Q.[id number] 3D Take 1 tablet (4 mg total) by mouth 3 times daily. Kellee pinedo Belsomra 20 MG oral Tablet 2023-07 00:00: 00 05-18 00:00 :00 No [id number] 1{tbl} QD take 1 tablet by mouth every day at night Kellee pinedo Nitrofurant oin (Macrobid *) 100 Mg CAP Nitrofurant oin (Macrobid *) 100 Mg CAP 2023-07 004 18:32: 00 Yes 100 [facility] Ondansetron Hcl (Zofran *) 4 Mg Tablet Disint Ondansetron Hcl (Zofran *) 4 Mg Tablet Disint 2023-07 004 18:32: 00 Yes 1 [facility] cefTRIAXone (ROCEPHIN) 1,000 mg in NaCl 0.9% (NS) 100 mL MINI-BAG 2023-07 01:15: 00 04-09 01:24 :00 No 1000mg 1,000 mg, IV Piggyback, ONCE, 1 dose, On Sat04/08/24 at 2015, Administer over 30 Minutes, 100 mL, Reason for Anti-Infec tive: Documented Infection, Documented Infection Site: Urine, Duration of Therapy: Once (ED) [facility] fentanyl PF (SUBLIMAZE (PF)) injection 25 mcg 2023-07 00:15: 00 04-09 00:18 :00 No 25ug 25 mcg, Slow IV Push, ONCE, 1 dose, On Sat04/08/24 at 1915, STAT [facility] NaCl 0.9% (NS) bolus infusion 1,000 mL 2023-07 23:45: 00 04-09 01:24 :00 No 1000mL at 999 mL/hr, 1,000 mL, IV Infusion, ONCE, 1 dose, On Sat04/08/24 at 1845, [facility] ondansetron (ZOFRAN (PF)) injection 4 mg 2023-07 23:00: 00 04-08 22:57 :00 No 4mg 4 mg, Slow IV Push, ONCE, 1 dose, On Sat04/08/24 at 1800, [facility] ketorolac (TORADOL) injection 30 mg 2023-07 23:00: 00 04-08 22:57 :00 No 30mg 30 mg, Slow IV Push, ONCE, 1 dose, On Sat04/08/24 at 1800, [facility] sodium chloride (NS) injection 5 mL 2023-07 22:33: 00 Yes 5mL 5 mL, Intravenou s, PRN, Starting on Sat04/08/24 at 1733, Until Discontinu ed, Routine, IV line flushing [facility] ciprofloxac in HCl 500 mg tablet 2023-07 00:00: 00 Yes [id number] 500mg Take 1 tablet by mouth in the morning and 1 tablet in the evening. [facility] Promethazin e HCl (PHENERGAN) 25 MG oral Tablet 03-14 00:00: 00 Yes 25mg Q.[id number] 3D Take 1 tablet (25 mg total) by mouth every 8 hours as needed for nausea. Kellee pinedo Clopidogrel Bisulfate (PLAVIX) 75 MG oral Tablet 02-09 00:00: 00 Yes [id number] 75mg QD take 1 tablet by mouth every day Kellee pinedo Aspirin Low Dose 81 MG oral Tablet Delayed Response 02-09 00:00: 00 Yes [id number] 81mg QD take 1 tablet by mouth every day Kellee pinedo Methylpredn isolone Acetate (Depo-Medro l) 40 mg/ml - Physician Administere d ([id number]) 02-05 13:21: 25 No [id number] 9104 40mg 40 mg, Physician Administer ed, ONCE, 1 dose, On [place] 02/06/24 at 1145 Kellee pinedo hydrOXYzine Pamoate 50 MG oral Capsule 02-05 11:06: 49 Yes [id number] 50mg Q.5D Take 1 capsule (50 mg total) by mouth 2 times daily as needed for anxiety. Kellee pinedo Isosorbide Mononitrate CR 60 MG oral TABLET SR 24 HR 02-04 00:00: 00 Yes Kellee pinedo Lorazepam (ATIVAN) 0.5 MG oral Tablet tablet 01-09 00:00: 00 Yes [id number] .5mg Q.5D take 1 tablet by mouth 2 times daily as needed for anxiety Kellee pinedo Aspirin (Aspirin Low Dose) 81 MG oral Tablet Delayed Response 01-05 00:00: 00 Yes [id number] 81mg QD Take 1 tablet (81 mg total) by mouth daily. Kellee pinedo Atorvastati n Calcium 40 MG oral Tablet 01-05 00:00: 00 Yes [id number] 40mg QD Take 1 tablet (40 mg total) by mouth daily. Kellee pinedo Suvorexant (Belsomra) 20 MG oral Tablet 01-05 00:00: 00 Yes [id number] 1{tbl} QD Take 1 tablet by mouth nightly. Kellee pinedo Clopidogrel Bisulfate (PLAVIX) 75 MG oral Tablet 01-05 00:00: 00 Yes [id number] 75mg QD Take 1 tablet (75 mg [...] MG oral Capsule 12-12 09:19: 23 Yes [id number] 50mg Q.5D Take 1 capsule (50 mg total) by mouth 2 times daily as needed for anxiety. Kellee pinedo Lorazepam (ATIVAN) 0.5 MG oral Tablet tablet 12-12 00:00: 00 Yes [id number] .5mg Q.5D Take 1 tablet (0.5 mg total) by mouth 2 times daily as needed for anxiety. Kellee pinedo Aspirin Low Dose 81 MG oral Tablet Delayed Response 12-05 00:00: 00 Yes [id number] 81mg Take 1 tablet (81 mg total) by mouth daily. Kellee pinedo Atorvastati n Calcium 40 MG oral Tablet 12-05 00:00: 00 Yes [id number] 40mg Take 1 tablet (40 mg total) by mouth daily. Kellee pinedo Clopidogrel Bisulfate (PLAVIX) 75 MG oral Tablet 12-05 00:00: 00 Yes [id number] 75mg Take 1 tablet (75 mg total) by mouth daily. Kellee pinedo Mometasone Furo-Formot camelia Fum (Dulera) 200-5 MCG/ACT inhalation Aerosol 12-05 00:00: 00 05-18 00:00 :00 No TWICE DAILY Kellee pinedo Vitamin D, Ergocalcife rol, 1.25 MG (46480 UT) oral Capsule 12-04 00:00: 00 Yes [id number] 42095U Q1W Take 1 capsule (50,000 units total) by mouth once a week. Kellee pinedo Ferrous Sulfate 325 (65 Fe) MG oral Tablet 12-04 00:00: 00 Yes [id number] 325mg QD Take 1 tablet (325 mg total) by mouth daily (with breakfast) . Kellee pinedo Clopidogrel Bisulfate (PLAVIX) 75 MG oral Tablet 12-04 00:00: 00 Yes [id number] 75mg QD Take 1 tablet (75 mg total) by mouth. Kellee pinedo Mirtazapine 45 MG oral Tablet 12-02 10:49: 07 12-02 00:00 :00 No [id number] 45mg Take 1 tablet (45 mg total) by mouth nightly. Kellee pinedo hydrOXYzine Pamoate 50 MG oral Capsule 12-02 10:49: 04 Yes [id number] 50mg Q.5D Take 1 capsule (50 mg total) by mouth 2 times daily as needed for anxiety. Kellee pinedo Ascorbic Acid 500 MG oral Tablet 12-02 10:48: 55 12-02 00:00 :00 No 50mg Take 50 mg by mouth. Kellee pinedo Suvorexant (Belsomra) 20 MG oral Tablet 12-02 00:00: 00 Yes [id number] 1{tbl} Take 1 tablet by mouth nightly. Kellee pinedo Lorazepam 1 MG oral Tablet 12-02 00:00: 00 12-12 00:00 :00 No [id number] 1mg Q.5D Take 1 tablet (1 mg total) by mouth 2 times daily as needed for anxiety. Kellee pinedo Doxepin HCl 3 MG oral Tablet 11-27 00:00: 00 05-18 00:00 :00 No [id number] 1{tbl} QD TAKE 1 TABLET BY MOUTH EVERY DAY AT NIGHT Kellee pinedo Aripiprazol e 5 MG oral Tablet 11-27 00:00: 00 05-18 00:00 :00 No [id number] 5mg QD TAKE 1 TABLET (5 MG TOTAL) BY MOUTH DAILY. Kellee pinedo Mirtazapine 45 MG oral Tablet 10-28 13:20: 59 Yes [id number] 45mg Take 1 tablet (45 mg total) by mouth nightly. Kellee pinedo Ascorbic Acid 500 MG oral Tablet 10-28 13:20: 47 Yes 50mg Take 50 mg by mouth. Kellee pinedo hydrOXYzine Pamoate 50 MG oral Capsule 10-28 13:20: 47 10-28 00:00 :00 No [id number] 50mg Q.5D Take 1 capsule (50 mg total) by mouth every 4 to 6 hours as needed. Kellee pinedo Sertraline HCl 150 MG oral Capsule 10-28 13:20: 03 10-28 00:00 :00 No 150mg Take 150 mg by mouth daily. Kellee pinedo Doxepin HCl 3 MG oral Tablet 10-28 00:00: 00 Yes [id number] 1{tbl} Take 1 tablet by mouth nightly. Kellee pinedo Aripiprazol e 5 MG oral Tablet 10-28 00:00: 00 Yes [id number] 5mg Take 1 tablet (5 mg total) by mouth daily. Kellee pinedo Suvorexant 10 MG oral Tablet 10-28 00:00: 00 12-02 00:00 :00 No [id number] 1{tbl} Take 1 tablet by mouth nightly. Kellee Marcio pinedo Sertraline HCl 50 MG oral Tablet 10-26 00:00: 00 Yes [id number] Kellee Ariasazra Yeager khris HYDROcodone -acetaminop hen (NORCO) 10-325 mg tablet 1 tablet 10-10 06:15: 00 10-10 05:25 :00 No 1{tbl} 1 tablet, Oral, ONCE NOW, 1 dose, On Sat10/11/23 at 0115, [facility] iopamidol (ISOVUE 370-500 mL) injection 100 mL 10-10 05:00: 00 10-10 05:00 :00 No [id number] 100mL 100 mL, Intravenou s, ONCE, 1 dose, On Sat10/11/23 at 0000, Routine [facility] ketorolac (TORADOL) injection 30 mg 10-10 04:30: 00 10-10 03:29 :00 No 30mg 30 mg, Slow IV Push, ONCE, 1 dose, On Sat10/10/23 at 2330, Routine [facility] NaCl 0.9% (NS) IV infusion 1,000 mL 10-10 04:15: 00 10-10 05:18 :00 No 1000mL at 999 mL/hr, Intravenou s, ONCE, 1 dose, On Sat10/10/23 at 2315, Routine [facility] ondansetron (ZOFRAN (PF)) injection 4 mg 10-10 04:00: 00 10-10 03:54 :00 No 4mg 4 mg, Slow IV Push, ONCE, 1 dose, On Sat10/10/23 at 2300, [facility] morpHINE (4 mg/mL) injection 4 mg 10-10 04:00: 00 10-10 03:54 :00 No 4mg 4 mg, Slow IV Push, ONCE, 1 dose, On [place] 10/10/23 at 2300, STAT [facility] traMADoL (ULTRAM) 50 mg tablet 10-10 00:00: 00 Yes [id number] 50mg Take 1 tablet by mouth every 6 (six) hours as needed for Pain (scale 7-10). Indication s: acute pain [facility] phenazopyri dine 200 mg tablet 10-10 00:00: 00 Yes [id number] 200mg Take 1 tablet by mouth in the morning and 1 tablet at noon and 1 tablet in the evening. [facility] ondansetron (ZOFRAN) 4 mg tablet 10-10 00:00: 00 Yes [id number] 4mg Take 1 tablet by mouth every 8 (eight) hours as needed for Nausea and Vomiting (N/V). [facility] ketorolac 10 mg tablet 10-10 00:00: 00 Yes [id number] 10mg Take 1 tablet by mouth every 6 (six) hours as needed for Pain (scale 7-10). [facility] Sertraline HCl 100 MG oral Tablet 10-09 00:00: 00 Yes [id number] 100mg Take 1 tablet (100 mg total) by mouth every morning. Kellee pinedo acetaminoph en (TYLENOL) tablet 975 mg 2022-07 04:15: 00 07-02 03:11 :00 No 975mg 975 mg, Oral, ONCE, 1 dose, On Sat07/01/23 at 2215, [facility] dicyclomine (BENTYL) tablet 20 mg 2022-07 03:15: 00 07-02 03:11 :00 No 20mg 20 mg, Oral, ONCE, 1 dose, On Sat07/01/23 at 2115, [facility] ketorolac (TORADOL) injection 30 mg 2022-07 03:15: 00 07-02 02:32 :00 No 30mg 30 mg, Slow IV Push, ONCE, 1 dose, On Sat07/01/23 at 2115, Routine [facility] ondansetron (ZOFRAN (PF)) injection 4 mg 2022-07 03:00: 00 07-02 02:03 :00 No 4mg 4 mg, Slow IV Push, ONCE, 1 dose, On Sat07/01/23 at 2100, [facility] NaCl 0.9% (NS) bolus infusion 1,000 mL 2022-07 03:00: 00 07-02 04:10 :00 No 1000mL at 999 mL/hr, 1,000 mL, IV Infusion, ONCE, 1 dose, On Sat07/01/23 at 2100, STAT [facility] dicyclomine 20 mg tablet 2022-07 00:00: 00 Yes [id number] 20mg Take 1 tablet by mouth 4 (four) times daily. [facility] ondansetron 4 mg disintegrat ing tablet 2022-07 00:00: 00 Yes [id number] 4mg Take 1 tablet by mouth every 4 (four) hours as needed for Nausea and Vomiting (N/V). [facility] Alprazolam (Alprazolam *) 1 Mg TAB Alprazolam (Alprazolam *) 1 Mg TAB 2022-07 12:08: 00 06-14 00:00 :00 No 1 [facility] Trazodone Hcl (Desyrel 100 Mg*) 100 Mg TAB Trazodone Hcl (Desyrel 100 Mg*) 100 Mg TAB 2022-07 12:07: 00 06-06 12:08 :00 No 1 [facility] Aspirin (Aspirin Ec) [address] Aspirin (Aspirin Ec) [address] 2022-07 11:55: 00 07-07 00:00 :00 No 81 [facility] Alprazolam (Xanax 2 Mg*) 2 Mg TAB Alprazolam (Xanax 2 Mg*) 2 Mg TAB 2022-07 11:09: 40 06-06 12:08 :00 No 2 [facility] Trazodone Hcl (Desyrel 300 Mg*) 300 Mg TAB Trazodone Hcl (Desyrel 300 Mg*) 300 Mg TAB 2022-07 11:09: 39 05-13 15:45 :00 No 300 [facility] Alprazolam 1 MG oral Tablet 2022-07 00:00: 00 12-12 00:00 :00 No [id number] 2mg Take 2 tablets (2 mg total) by mouth 2 times daily. Kellee pinedo Pantoprazol e * (Protonix Ec *) 20 Mg Tablet Pantoprazol e * (Protonix Ec *) [address] 2022-07 15:44: 00 06-05 00:28 :00 No 20 [facility] Sucralfate (Carafate *) 1 Gm TAB Sucralfate (Carafate *) 1 Gm TAB 2022-07 15:44: 00 06-05 00:28 :00 No 1 [facility] Ciprofloxac in Hcl (Cipro *) 500 Mg TAB Ciprofloxac in Hcl (Cipro *) 500 Mg TAB 2022-07 15:44: 00 05-16 00:00 :00 No 500 [facility] Pantoprazol e Sodium 20 MG oral Tablet Delayed Response 2022-07 00:00: 00 12-02 00:00 :00 No Take by mouth. Kellee pinedo ketorolac (TORADOL) injection 15 mg 2022-07 01:00: 00 05-10 00:09 :00 No 15mg 15 mg, Slow IV Push, ONCE, 1 dose, On Sat05/09/23 at 2000, [facility] proCHLORper azine (COMPAZINE) injection 5 mg 2022-07 23:30: 00 05-09 22:48 :00 No 5mg 5 mg, Slow IV Push, ONCE, 1 dose, On Sat05/09/23 at 1830, [facility] diphenhydrA MINE (BENADRYL) injection 25 mg 2022-07 22:45: 00 05-09 22:48 :00 No 25mg 25 mg, Slow IV Push, ONCE, 1 dose, On Sat05/09/23 at 1745, STAT [facility] HYDROcodone -acetaminop hen (NORCO) 10-325 mg tablet 1 tablet 2022-07 02:00: 00 05-01 01:04 :00 No 1{tbl} 1 tablet, Oral, ONCE, 1 dose, On Sat04/30/23 at 2100, Routine [facility] iopamidol (ISOVUE 370-500 mL) injection 100 mL 2022-07 00:45: 00 05-01 00:45 :00 No [id number] 100mL 100 mL, Intravenou s, ONCE, 1 dose, On Sat04/30/23 at 1945, Routine [facility] NaCl 0.9% (NS) bolus infusion 1,000 mL 2022-07 00:00: 00 05-01 00:45 :00 No 1000mL at 999 mL/hr, 1,000 mL, IV Piggyback, ONCE, 1 dose, On Sat04/30/23 at 1900, STAT [facility] proCHLORper azine (COMPAZINE) injection 5 mg 2022-07 23:45: 00 04-30 23:09 :00 No 5mg 5 mg, Slow IV Push, ONCE, 1 dose, On Sat04/30/23 at 1845, [facility] diphenhydrA MINE (BENADRYL) injection 25 mg 2022-07 23:00: 00 04-30 23:09 :00 No 25mg 25 mg, Slow IV Push, ONCE, 1 dose, On Sat04/30/23 at 1800, STAT [facility] dicyclomine 20 mg tablet 2022-07 00:00: 00 07-01 00:00 :00 No [id number] 20mg Take 1 tablet by mouth 4 (four) times daily. [facility] acetaminoph en (TYLENOL) tablet 1,000 mg 2022-07 02:45: 00 04-17 02:43 :00 No 1000mg 1,000 mg, Oral, ONCE, 1 dose, On Sat04/16/23 at 2145, [facility] ondans[facility] (ZOFRAN (PF)) injection 4 mg 2022-07 03:15: 00 04-09 02:13 :00 No 4mg 4 mg, Slow IV Push, ONCE, 1 dose, On Sat04/08/23 at 2215, [facility] dicyclomine (BENTYL) tablet 20 mg 2022-07 03:15: 00 04-09 02:16 :00 No 20mg 20 mg, Oral, ONCE, 1 dose, On Sat04/08/23 at 2215, Routine [facility] ondansetron (ZOFRAN (PF)) injection 4 mg 2022-07 23:45: 00 04-08 23:16 :00 No 4mg 4 mg, Slow IV Push, ONCE, 1 dose, On Sat04/08/23 at 1845, [facility] morpHINE (2 mg/mL) injection 4 mg 2022-07 23:45: 00 04-08 23:45 :00 No 4mg 4 mg, Slow IV Push, ONCE, 1 dose, On Sat04/08/23 at 1845, STAT [facility] ondansetron 4 mg disintegrat ing tablet 2022-07 00:00: 00 07-01 00:00 :00 No [id number] 4mg Take 1 tablet by mouth every 8 (eight) hours as needed for Nausea and Vomiting (N/V). [facility] dicyclomine 20 mg tablet 2022-07 00:00: 00 04-30 00:00 :00 No [id number] 20mg Take 1 tablet by mouth 4 (four) times daily. [facility] acetaminoph en (TYLENOL) tablet 1,000 mg 03-10 04:30: 00 03-10 04:29 :00 No 1000mg 1,000 mg, Oral, ONCE, 1 dose, On 03/09/23 at 2330, [facility] iopamidol (ISOVUE 370-500 mL) injection 85 mL 03-10 04:30: 00 03-10 04:30 :00 No [id number] 85mL 85 mL, Intravenou s, ONCE, 1 dose, On 03/09/23 at 2330, Routine [facility] FENTanyl PF (SUBLIMAZE (PF)) injection 75 mcg 03-10 04:00: 00 03-10 02:58 :00 No 75ug 75 mcg, Slow IV Push, ONCE, 1 dose, On 03/09/23 at 2300, STAT [facility] NaCl 0.9% (NS) IV infusion 1,000 mL 03-10 03:00: 00 Yes 1000mL at 20 mL/hr, IV Infusion, CONTINUOUS , Starting on 03/09/23 at 2200, Until Discontinu ed, Routine [facility] ondansetron (ZOFRAN (PF)) injection 4 mg 03-10 02:00: 00 03-10 02:01 :00 No 4mg 4 mg, Slow IV Push, ONCE, 1 dose, On 03/09/23 at 2100, [facility] morpHINE (4 mg/mL) injection 4 mg 03-10 02:00: 00 03-10 02:01 :00 No 4mg 4 mg, Slow IV Push, ONCE, 1 dose, On 03/09/23 at 2100, STAT [facility] polyethylen e glycol 3350 (MIRALAX) 17 gram powder 03-09 00:00: 00 Yes [id number] 1{packe t} Take 1 Packet by mouth once daily as needed for Constipati on. [facility] Simethicone 125 mg 03-09 00:00: 00 Yes [id number] 125mg Take 1 capsule by mouth after meals and at bedtime as needed for Gas. [facility] iopamidol (ISOVUE 370-500 mL) injection 100 mL 03-02 06:15: 00 03-02 06:15 :00 No [id number] 100mL 100 mL, Intravenou s, ONCE, 1 dose, On 03/02/23 at 0115, Routine [facility] NaCl 0.9% (NS) IV infusion 1,000 mL 03-02 05:15: 00 Yes 1000mL at 999 mL/hr, Intravenou s, CONTINUOUS , Starting on 03/02/23 at 0015, Until Discontinu ed, Routine [facility] ketorolac (TORADOL) injection 30 mg 03-02 05:15: 00 03-02 04:20 :00 No 30mg 30 mg, Slow IV Push, ONCE, 1 dose, On 03/02/23 at 0015, Routine [facility] ondansetron (ZOFRAN (PF)) injection 4 mg 03-02 05:00: 00 03-02 05:24 :00 No 4mg 4 mg, Slow IV Push, ONCE, 1 dose, On 03/02/23 at 0000, [facility] morpHINE (4 mg/mL) injection 4 mg 03-02 05:00: 00 03-02 05:24 :00 No 4mg 4 mg, Slow IV Push, ONCE, 1 dose, On 03/02/23 at 0000, STAT [facility] ondansetron (ZOFRAN (PF)) injection 4 mg 03-02 04:15: 00 03-02 04:21 :00 No 4mg 4 mg, Slow IV Push, ONCE, 1 dose, On Sat03/01/23 at 2315, [facility] ondansetron (ZOFRAN) 4 mg tablet 03-02 00:00: 00 Yes [id number] 4mg Take 1 tablet by mouth every 8 (eight) hours as needed for Nausea and Vomiting (N/V). [facility] dicyclomine 20 mg tablet 03-02 00:00: 00 04-30 00:00 :00 No [id number] 20mg Take 1 tablet by mouth every 6 (six) hours as needed for Abdominal pain. [facility] metoclopram tracy HCl (REGLAN) injection 10 mg 02-18 06:45: 00 02-18 06:43 :00 No 10mg 10 mg, Slow IV Push, ONCE, 1 dose, On Sat02/18/23 at 0145, [facility] morpHINE (4 mg/mL) injection 4 mg 02-18 05:30: 00 02-18 05:28 :00 No 4mg 4 mg, Slow IV Push, ONCE, 1 dose, On Sat02/18/23 at 0030, STAT [facility] ondansetron (ZOFRAN (PF)) injection 4 mg 02-18 05:30: 00 02-18 05:28 :00 No 4mg 4 mg, Slow IV Push, ONCE, 1 dose, On Sat02/18/23 at 0030, [facility] NaCl 0.9% (NS) bolus infusion 1,000 mL 02-18 05:30: 00 02-18 05:15 :00 No 1000mL at 999 mL/hr, 1,000 mL, IV Infusion, ONCE, 1 dose, On Sat02/18/23 at 0030, STAT [facility] proMETHazin e (PHENERGAN) 25 mg in NaCl 0.9% (NS) 50 mL IV piggyback 02-18 04:30: 00 02-18 04:28 :00 No 25mg 25 mg, IV Piggyback, ONCE, 1 dose, On Sat02/17/23 at 2330, [facility] proMETHazin e 25 mg tablet 02-18 00:00: 00 Yes [id number] 25mg Take 1 tablet by mouth every 6 (six) hours as needed for Nausea and Vomiting (N/V). [facility] bupropion HCl (WELLBUTRIN ORAL) 02-17 16:23: 24 Yes 150mg Take 150 mg by mouth every morning. [facility] trazodone HCl (TRAZODONE ORAL) 02-17 16:23: 24 Yes 400mg Take 400 mg by mouth at bedtime. [facility] escitalopra m oxalate (LEXAPRO) 5 mg tablet 02-17 16:23: 24 Yes 10mg Take 2 tablets by mouth at bedtime. [facility] topiramate (TOPAMAX) 200 mg tablet 02-17 16:23: 24 Yes 200mg Take 1 tablet by mouth every evening. [facility] OLANZapine (ZYPREXA) 15 mg tablet 02-17 16:23: 24 Yes 15mg Take 1 tablet by mouth every evening. [facility] melatonin 10 mg Tab 02-17 16:23: 24 Yes 1{tbl} Take 1 tablet by mouth at bedtime. [facility] ALPRAZOLAM ORAL 02-17 16:23: 24 04-08 00:00 :00 No 2mg Take 2 mg by mouth in the morning and 2 mg in the evening. [facility] lactated ringers IV infusion 1,000 mL 02-17 02:15: 00 02-17 22:14 :00 No 1000mL at 100 mL/hr, 1,000 mL, IV Infusion, CONTINUOUS , Starting on 02/16/23 at 2115, Until 02/17/23 at 1714, Routine [facility] traZODone (DESYREL) tablet 400 mg 02-17 02:00: 00 Yes 400mg 400 mg, Oral, QHS, First dose on 02/16/23 at 2100, Until Discontinu ed [facility] melatonin (MELATIN) tablet 9 mg 02-17 02:00: 00 Yes 9mg 9 mg, Oral, QHS, First dose on 02/16/23 at 2100, Until Discontinu ed [facility] morpHINE (2 mg/mL) injection 2 mg 02-17 01:07: 50 03-01 01:06 :50 No 2mg 2 mg, Slow IV Push, Q4HPRN, Starting on 02/16/23 at 2006, Until [place] 02/28/23 at 2005, Routine, Pain (scale 7-10) [facility] OLANZapine (ZyPREXA) tablet 15 mg 02-16 22:00: 00 Yes 15mg 15 mg, Oral, QPM, First dose on 02/16/23 at 1700, Until Discontinu ed, Routine [facility] buPROPion XL (WELLBUTRIN XL) tablet 150 mg 02-16 14:00: 00 Yes 150mg 150 mg, Oral, DAILY, First dose on [facility] 02/16/23 at 0900, Until Discontinu ed [facility] enoxaparin (LOVENOX) injection 40 mg 02-16 14:00: 00 Yes 40mg 40 mg, Subcutaneo us, DAILY, First dose on [facility] 02/16/23 at 0900, Until Discontinu ed, Routine [facility] methocarbam oL (ROBAXIN) tablet 500 mg 02-16 06:04: 59 Yes 500mg 500 mg, Oral, Q6HPRN, Starting on Sat02/16/23 at 0104, Until Discontinu ed, Routine, Muscle Spasms [facility] ALPRAZolam (XANAX) tablet 2 mg 02-16 06:03: 54 Yes 2mg 2 mg, Oral, TIDPRN, Starting on Sat02/16/23 at 0103, Until Discontinu ed, Anxiety [facility] lactated ringers IV infusion 1,000 mL 02-16 03:15: 00 02-16 23:14 :00 No 1000mL at 100 mL/hr, 1,000 mL, IV Infusion, CONTINUOUS , Starting on Sat02/15/23 at 2215, Until 02/16/23 at 1814, Routine [facility] morpHINE (2 mg/mL) injection 2 mg 02-16 03:07: 02 02-17 01:08 :14 No 2mg 2 mg, Slow IV Push, Q4HPRN, Starting on Sat02/15/23 at 2207, Until 02/16/23 at 2008, Routine, Pain (scale 7-10) [facility] traMADoL (ULTRAM) tablet 50 mg 02-16 03:06: 59 02-18 03:05 :59 No 50mg 50 mg, Oral, Q8HPRN, Starting on Sat02/15/23 at 2206, Until Sat02/17/23 at 2205, Routine, Pain (scale 4-6) [facility] acetaminoph en (TYLENOL) tablet 1,000 mg 02-16 03:06: 50 Yes 1000mg 1,000 mg, Oral, Q6HPRN, Starting on Sat02/15/23 at 2206, Until Discontinu ed, Routine, Pain (scale 1-3), Temp > 38 C [facility] ALPRAZolam (XANAX) 1 mg tablet 02-16 01:09: 19 02-15 00:00 :00 No 1mg Take 1 tablet by mouth in the morning and 1 tablet in the evening. [facility] iopamidol (ISOVUE 370-500 mL) injection 80 mL 02-16 00:30: 00 02-16 00:30 :00 No [id number] 80mL 80 mL, Intravenou s, ONCE, 1 dose, On Sat02/15/23 at 1930, Routine [facility] lactated ringers IV infusion 1,000 mL 02-16 00:00: 00 02-16 03:07 :30 No [id number] 1000mL at 500 mL/hr, 1,000 mL, IV Infusion, CONTINUOUS , Starting on Sat02/15/23 at 1900, Until Sat02/15/23 at 2207, ROSELYN [facility] FENTanyl PF (SUBLIMAZE (PF)) injection 75 mcg 02-15 23:45: 00 02-15 23:13 :00 No [id number] 75ug 75 mcg, Slow IV Push, ONCE, 1 dose, On Sat02/15/23 at 1845, Routine [facility] dicyclomine (BENTYL) injection 20 mg 02-15 22:15: 00 02-15 21:46 :00 No [id number] 20mg 20 mg, Intramuscu lar, ONCE NOW, 1 dose, On Sat02/15/23 at 1715, Routine [facility] LORazepam (ATIVAN) injection 1 mg 02-15 21:45: 00 02-15 21:46 :00 No [id number] 1mg 1 mg, Slow IV Push, ONCE, 1 dose, On Sat02/15/23 at 1645, STAT [facility] ondansetron (ZOFRAN (PF)) injection 4 mg 02-15 21:45: 00 02-15 21:46 :00 No [id number] 4mg 4 mg, Slow IV Push, ONCE, 1 dose, On Sat02/15/23 at 1645, ROSELYN [facility] HYDROcodone -acetaminop hen (NORCO) 10-325 mg tablet 1 tablet 02-15 20:15: 00 02-15 19:52 :00 No [id number] 1{tbl} 1 tablet, Oral, ONCE, 1 dose, On Sat02/15/23 at 1515, Routine [facility] Melatonin 1 mg tablet 02-15 20:08: 23 02-15 00:00 :00 No 10mg Take 10 tablets by mouth every evening. [facility] trazodone HCl (DESYREL ORAL) 02-15 20:06: 33 02-15 00:00 :00 No 200mg Take 200 mg by mouth every evening. [facility] OLANZapine (ZYPREXA) 2.5 mg tablet 02-15 20:05: 48 02-15 00:00 :00 No 2.5mg Take 1 tablet by mouth in the morning and 1 tablet in the evening. [facility] hydrOXYzine (VISTARIL) 50 mg capsule 02-15 20:03: 04 02-15 00:00 :00 No 50mg Take 1 capsule by mouth every 4 (four) hours as needed for Itching. q 4-6 hours as needed [facility] dicyclomine (BENTYL) tablet 20 mg 02-15 19:30: 00 02-15 19:52 :00 No [id number] 20mg 20 mg, Oral, ONCE, 1 dose, On Sat02/15/23 at 1430, [facility]up[facility] ([facility]U) tablet 800 mg 02-15 19:30: 00 02-15 19:52 :00 No [id number] 800mg 800 mg, Oral, ONCE, 1 dose, On Sat02/15/23 at 1430, [facility] losartan 50 mg tablet 02-15 13:44: 36 02-15 00:00 :00 No 50mg Take 1 tablet by mouth in the morning. [facility] [place]-3-DHA -EPA-Fish Oil (FISH OIL) 1,000 mg (120 mg-180 mg) Cap 02-15 13:44: 15 02-15 00:00 :00 No 1000mg Take 1,000 mg by mouth daily. [facility] methocarbam oL 750 mg tablet 02-15 13:43: 47 02-15 00:00 :00 No 750mg Take 750 mg by mouth 3 (three) times daily. [facility] FENTanyl PF (SUBLIMAZE (PF)) injection 50 mcg 01-10 00:45: 00 01-09 23:46 :00 No 50ug 50 mcg, Slow IV Push, ONCE, 1 dose, On Sat01/09/22 at 1945, Routine [facility] ketorolac (TORADOL) injection 30 mg 01-09 23:45: 00 01-09 22:48 :00 No 30mg 30 mg, Slow IV Push, ONCE, 1 dose, On Sat01/09/22 at 1845, Routine [facility] aspirin chewable tablet 243 mg 12-14 14:00: 00 Yes 243mg 243 mg, Oral, DAILY, First dose on Sat12/14/21 at 0900, Until Discontinu ed, Routine [facility] ketorolac (TORADOL) injection 15 mg 12-14 08:15: 00 12-14 07:11 :00 No 15mg 15 mg, Slow IV Push, ONCE, 1 dose, On [place] 12/14/21 at 0315, [facility] morpHINE (4 mg/mL) injection 4 mg 12-14 05:45: 00 12-14 04:52 :00 No 4mg 4 mg, Slow IV Push, ONCE, 1 dose, On [place] 12/14/21 at 0045, STAT [facility] cefTRIAXone (ROCEPHIN) 1,000 mg in NaCl 0.9% (NS) 50 mL MINI-BAG 12-14 05:45: 00 12-14 05:30 :00 No 1000mg 1,000 mg, IV Piggyback, ONCE, 1 dose, On [place] 12/14/21 at 0045, Administer over 30 Minutes, 50 mL
Reas on for Anti-Infec tive: Documented Infection< br>Documen kaushik Infection Site: Urine
D uration of Therapy: Other (see Comments) [facility] NaCl 0.9% (NS) bolus infusion 1,000 mL 12-14 05:45: 00 12-14 07:20 :00 No 1000mL at 999 mL/hr, 1,000 mL, IV Infusion, ONCE, 1 dose, On [place] 12/14/21 at 0045, [facility] ondansetron (ZOFRAN (PF)) injection 4 mg 12-14 04:45: 00 12-14 03:50 :00 No 4mg 4 mg, Slow IV Push, ONCE, 1 dose, On Sat12/13/21 at 2345, [facility] FENTanyl PF (SUBLIMAZE (PF)) injection 50 mcg 12-14 04:45: 00 12-14 03:50 :00 No 50ug 50 mcg, Slow IV Push, ONCE, 1 dose, On Sat12/13/21 at 2345, Routine [facility] ALPRAZolam (XANAX) 1 mg tablet 12-14 02:22: 13 Yes 1mg Take 1 mg by mouth 2 (two) times daily. [facility] naproxen 500 mg tablet 12-14 00:00: 00 02-15 00:00 :00 No [id number] 500mg Take 1 tablet by mouth 2 (two) times daily with meals. [facility] cefpodoxime 200 mg tablet 12-14 00:00: 00 12-22 04:59 :00 No [id number] 200mg Take 1 tablet by mouth 2 (two) times daily for 7 days. [facility] LORazepam (ATIVAN) injection 1 mg 11-12 05:00: 00 11-12 04:01 :00 No 1mg 1 mg, Slow IV Push, ONCE, 1 dose, On 11/12/21 at 0000, STAT [facility] ketorolac (TORADOL) injection 30 mg 11-12 03:30: 00 11-12 02:26 :00 No 30mg 30 mg, Slow IV Push, ONCE, 1 dose, On 11/11/21 at 2230, Routine
ground operations crew member approving Restricted medication : DEE WANG [facility] nitroglycer in (NITROSTAT) sublingual tablet 0.4 mg 11-12 03:30: 00 11-12 02:26 :00 No .4mg 0.4 mg, Sublingual , ONCE, 1 dose, On 11/11/21 at 2230, ROSELYN [facility] aspirin E.C. (ECOTRIN) tablet 325 mg 11-12 03:30: 00 11-12 02:25 :00 No 325mg 325 mg, Oral, ONCE, 1 dose, On 11/11/21 at 2230, STAT [facility] morpHINE (4 mg/mL) injection 4 mg 11-12 02:30: 00 11-12 01:40 :00 No 4mg 4 mg, Slow IV Push, ONCE, 1 dose, On 11/11/21 at 2130, STAT [facility] ondansetron (ZOFRAN (PF)) injection 4 mg 11-12 02:30: 00 11-12 01:40 :00 No 4mg 4 mg, Slow IV Push, ONCE, 1 dose, On 11/11/21 at 2130, [facility] NaCl 0.9% (NS) bolus infusion 1,000 mL 11-12 02:30: 00 11-12 02:30 :00 No 1000mL at 999 mL/hr, 1,000 mL, IV Infusion, ONCE, 1 dose, On 11/11/21 at 2130, [facility] hydrOXYzine 50 mg tablet 11-11 00:00: 00 04-08 00:00 :00 No [id number] 50mg Take 1 tablet by mouth every 8 (eight) hours as needed for Anxiety. [facility] ketorolac (TORADOL) injection 30 mg 09-12 05:45: 00 09-12 04:54 :00 No 30mg 30 mg, Slow IV Push, ONCE, 1 dose, On Sat09/11/21 at 2345, Routine
ground operations crew member approving Restricted medication : DEE WANG [facility] cefTRIAXone (ROCEPHIN) 1,000 mg in NaCl 0.9% (NS) 50 mL MINI-BAG 09-12 03:45: 00 09-12 03:41 :00 No 1000mg 1,000 mg, IV Piggyback, ONCE, 1 dose, On Sat09/11/21 at 2145, Administer over 30 Minutes, 50 mL
Reas on for Anti-Infec tive: Documented Infection< br>Documen kaushik Infection Site: Urine
D uration of Therapy: 7 days [facility] ondansetron (ZOFRAN (PF)) injection 4 mg 09-12 03:15: 00 09-12 02:39 :00 No 4mg 4 mg, Slow IV Push, ONCE, 1 dose, On Sat09/11/21 at 2115, ROSELYN [facility] morpHINE injection 4 mg 09-12 03:15: 00 09-12 02:39 :00 No 4mg 4 mg, Slow IV Push, ONCE, 1 dose, On Sat09/11/21 at 2115, STAT [facility] iopamidol (ISOVUE 370-500 mL) injection 120 mL 09-12 02:45: 00 09-12 03:00 :00 No [id number] 120mL 120 mL, Intravenou s, ONCE, 1 dose, On Sat09/11/21 at 2100, Routine [facility] sodium chloride (NS) injection 5 mL 09-12 01:33: 26 Yes 5mL 5 mL, Intravenou s, PRN, Starting on Sat09/11/21 at 1933, Until Discontinu ed, Routine, IV line flushing [facility] ibuprofen 600 mg tablet 09-11 00:00: 00 02-15 00:00 :00 No [id number] 600mg Take 1 tablet by mouth every 6 (six) hours as needed for Pain (scale 4-6). [facility] cefdinir 300 mg capsule 09-11 00:00: 00 09-19 04:59 :00 No [id number] 300mg Take 1 capsule by mouth 2 (two) times daily for 7 days. [facility] HYDROcodone -acetaminop hen (NORCO) 10-325 mg tablet 1 tablet 08-15 09:00: 00 08-15 07:59 :00 No 1{tbl} 1 tablet, Oral, ONCE, 1 dose, On Sat08/15/21 at 0300, Routine [facility] FENTanyl PF (SUBLIMAZE (PF)) injection 75 mcg 08-15 07:30: 00 08-15 06:42 :00 No 75ug 75 mcg, Intramuscu lar, ONCE, 1 dose, On Sat08/15/21 at 0130, Routine [facility] traMADoL (ULTRAM) 50 mg tablet 2- 00:00: 00 Yes [id number] 50mg Take 1 tablet by mouth every 6 (six) hours as needed for Pain (scale 7-10). Indication s: acute pain [facility] methocarbam oL (ROBAXIN) 500 mg tablet 2- 00:00: 00 Yes [id number] 500mg Take 1 tablet by mouth every 6 (six) hours as needed for Pain (scale 7-10) (MUSCLE SPASM). [facility] Nitrofurant oin&Nit. Macrocryst (MACROBID) 100 mg capsule 08-15 00:00: 00 02-15 00:00 :00 No [id number] 100mg Take 1 capsule by mouth 2 (two) times daily. [facility] morpHINE injection 4 mg 2020-07 08:30: 00 05-28 07:50 :00 No 4mg 4 mg, Slow IV Push, ONCE, 1 dose, On 05/28/21 at 0230, ROSELYN [facility] maalox:diph enhydrAMINE :lidocaine 2 % viscous 1:1:1 (FIRST-MOUT HWASH BLM) oral suspension 15 mL 2020-07 08:00: 00 05-28 07:04 :00 No 15mL 15 mL, Oral, ONCE, 1 dose, On 05/28/21 at 0200, Routine [facility] FENTanyl PF (SUBLIMAZE (PF)) injection 50 mcg 2020-07 07:00: 00 05-28 06:02 :00 No 50ug 50 mcg, Slow IV Push, ONCE, 1 dose, On 05/28/21 at 0100, STAT [facility] famotidine (PEPCID (PF)) injection 20 mg 2020-07 07:00: 00 05-28 06:01 :00 No 20mg 20 mg, Slow IV Push, ONCE, 1 dose, On 05/28/21 at 0100, ROSELYN [facility] famotidine 20 mg tablet 2020-07 00:00: 00 06-13 05:59 :00 No [id number] 20mg Take 1 tablet by mouth 2 (two) times daily for 15 days. [facility] escitalopra m oxalate (LEXAPRO) tablet 10 mg 2020-07 02:00: 00 Yes 10mg 10 mg, Oral, QHS, First dose on 04/08/21 at 2100, Until Discontinu ed, Routine [facility] aspirin 81 mg chewable tablet 2020-07 00:00: 00 05-10 04:59 :00 No [id number] 81mg Take 1 tablet by mouth daily for 30 days. [facility] traZODone (DESYREL) tablet 200 mg 2020-07 22:00: 00 Yes 200mg 200 mg, Oral, QPM, First dose on 04/08/21 at 1700, Until Discontinu ed [facility] topiramate (TOPAMAX) tablet 200 mg 2020-07 22:00: 00 Yes 200mg 200 mg, Oral, QPM, First dose on 04/08/21 at 1700, Until Discontinu ed, Routine
ground operations crew member approving Restricted medication : ALEXEY ALEGRE [facility] OLANZapine (ZyPREXA) tablet 15 mg 2020-07 22:00: 00 Yes 15mg 15 mg, Oral, QPM, First dose on 04/08/21 at 1700, Until Discontinu ed, Routine [facility] melatonin (MELATIN) tablet 9 mg 2020-07 22:00: 00 Yes 9mg 9 mg, Oral, QPM, First dose on 04/08/21 at 1700, Until Discontinu ed [facility] methocarbam oL 750 mg tablet 2020-07 17:45: 33 Yes 750mg Take 750 mg by mouth 3 (three) times daily. [facility] [place]-3-DHA -EPA-Fish Oil (FISH OIL) 1,000 mg (120 mg-180 mg) Cap 2020-07 17:45: 33 Yes 1000mg Take 1,000 mg by mouth daily. [facility] hydrOXYzine (VISTARIL) 50 mg capsule 2020-07 17:45: 33 Yes 50mg Take 50 mg by mouth every 4 (four) hours as needed for Itching. q 4-6 hours as needed [facility] losartan 50 mg tablet 2020-07 17:45: 33 Yes 50mg Take 50 mg by mouth daily. [facility] trazodone HCl (DESYREL ORAL) 2020-07 17:45: 33 Yes 200mg Take 200 mg by mouth every evening. [facility] escitalopra m oxalate (LEXAPRO) 5 mg tablet 2020-07 17:45: 33 Yes 10mg Take 10 mg by mouth at bedtime. [facility] Melatonin 1 mg tablet 2020-07 17:45: 33 Yes 10mg Take 10 mg by mouth every evening. [facility] topiramate (TOPAMAX) 200 mg tablet 2020-07 17:45: 33 Yes 200mg Take 200 mg by mouth every evening. [facility] bupropion HCl (WELLBUTRIN ORAL) 2020-07 17:45: 33 Yes 150mg Take 150 mg by mouth every morning. [facility] OLANZapine (ZYPREXA) 15 mg tablet 2020-07 17:45: 33 Yes 15mg Take 15 mg by mouth every evening. [facility] OLANZapine (ZYPREXA) 2.5 mg tablet 2020-07 17:45: 33 Yes 2.5mg Take 2.5 mg by mouth 2 (two) times daily. [facility] furosemide (LASIX) injection 20 mg 2020-07 14:30: 00 Yes 20mg 20 mg, Slow IV Push, Q12H, First dose on 04/08/21 at 0930, Until Discontinu ed, Routine [facility] losartan (COZAAR) tablet 50 mg 2020-07 14:00: 00 Yes 50mg 50 mg, Oral, DAILY, First dose on 04/08/21 at 0900, Until Discontinu ed, Routine [facility] buPROPion XL (WELLBUTRIN XL) tablet 150 mg 2020-07 14:00: 00 Yes 150mg 150 mg, Oral, DAILY, First dose on 04/08/21 at 0900, Until Discontinu ed [facility] aspirin chewable tablet 81 mg 2020-07 14:00: 00 Yes 81mg 81 mg, Oral, DAILY, First dose on 04/08/21 at 0900, Until Discontinu ed, Routine [facility] enoxaparin (LOVENOX) injection 40 mg 2020-07 14:00: 00 Yes 40mg 40 mg, Subcutaneo us, DAILY, First dose on 04/08/21 at 0900, Until Discontinu ed, Routine [facility] OLANZapine (ZyPREXA) tablet 2.5 mg 2020-07 13:00: 00 Yes 2.5mg 2.5 mg, Oral, BID, First dose on [facility] 04/08/21 at 0800, Until Discontinu ed, Routine [facility] methocarbam oL (ROBAXIN) tablet 750 mg 2020-07 13:00: 00 Yes 750mg 750 mg, Oral, TID, First dose on [facility] 04/08/21 at 0800, Until Discontinu ed, Routine [facility] LORazepam (ATIVAN) injection 0.5 mg 2020-07 04:07: 43 Yes .5mg 0.5 mg, Slow IV Push, PRN, 2 doses, Starting on Sat04/07/21 at 2307, Until Discontinu ed, Routine, Anxiety [facility] hydrOXYzine (ATARAX) tablet 50 mg 2020-07 02:51: 23 Yes 50mg 50 mg, Oral, Q4HPRN, Starting on Sat04/07/21 at 2151, Until Discontinu ed, Itching [facility] LORazepam (ATIVAN) tablet 0.5 mg 2020-07 02:05: 29 Yes .5mg 0.5 mg, Oral, PRN, 2 doses, Starting on Sat04/07/21 at 2105, Until Discontinu ed, Routine, Anxiety [facility] morpHINE injection 4 mg 2020-07 0 00:00: 00 04-07 22:58 :00 No 4mg 4 mg, Slow IV Push, ONCE, 1 dose, On Sat04/07/21 at 1900, STAT [facility] ondansetron (ZOFRAN (PF)) injection 4 mg 2020-07 0 00:00: 00 04-07 22:56 :00 No 4mg 4 mg, Slow IV Push, ONCE, 1 dose, On Sat04/07/21 at 1900, ROSELYN [facility] morpHINE injection 4 mg 2020-07 23:58: 03 04-08 23:57 :03 No 4mg 4 mg, Slow IV Push, Q4HPRN, Starting on Sat04/07/21 at 1858, Until 04/08/21 at 1857, Routine, Pain (scale 7-10) [facility] HYDROcodone -acetaminop hen (NORCO 5) 5-325 mg tablet 1 tablet 2020-07 23:58: 00 04-09 23:57 :00 No 1{tbl} 1 tablet, Oral, Q6HPRN, Starting on Sat04/07/21 at 1858, Until 04/09/21 at 1857, Routine, Pain (scale 4-6) [facility] acetaminoph en (TYLENOL) tablet 650 mg 2020-07 23:57: 57 Yes 650mg 650 mg, Oral, Q6HPRN, Starting on Sat04/07/21 at 1857, Until Discontinu ed, Routine, Pain (scale 1-3) [facility] aspirin tablet 325 mg 2020-07 23:00: 00 04-07 21:56 :00 No 325mg 325 mg, Oral, ONCE, 1 dose, On Sat04/07/21 at 1800, STAT [facility] nitroglycer in (NITROSTAT) sublingual tablet 0.4 mg 2020-07 21:51: 01 04-07 22:46 :00 No .4mg 0.4 mg, Sublingual , Q5MIN PRN, 3 doses, Starting on Sat04/07/21 at 1651, Until Discontinu ed, ROSELYN, Chest pain [facility] fluconazole (DIFLUCAN) tablet 150 mg 01-12 14:00: 00 Yes 150mg 150 mg, Oral, DAILY, First dose on [place] 01/12/21 at 0900, Until Discontinu ed, ROSELYN
Re ason for Anti-Infec tive: Empiric Therapy for Suspected Infection< br>Empiric Therapy Site: HEENT
D uration of therapy: 72 hours [facility] cefTRIAXone (ROCEPHIN) 1,000 mg in NaCl 0.9% (NS) 50 mL MINI-BAG 01-12 10:15: 00 01-12 09:49 :00 No 1000mg 1,000 mg, IV Piggyback, ONCE, 1 dose, [place] 01/12/21 at 0515, 50 mL
Reas on for Anti-Infec tive: Empiric Therapy for Suspected Infection< br>Empiric Therapy Site: Urine
D uration of therapy: 72 hours [facility] hydrOXYzine (ATARAX) tablet 25 mg 01-12 10:15: 00 01-12 09:18 :00 No 25mg 25 mg, Oral, ONCE, 1 dose, [place] 01/12/21 at 0515, ROSELYN [facility] HYDROcodone -acetaminop hen (NORCO) 10-325 mg tablet 1 tablet 01-12 10:15: 00 01-12 09:18 :00 No 1{tbl} 1 tablet, Oral, ONCE, 1 dose, [place] 01/12/21 at 0515, Routine [facility] maalox:diph enhydrAMINE :lidocaine2 %viscous 1:1:1: suspension (COMPOUNDED ) 01-12 09:30: 00 01-12 08:25 :00 No 15mL 15 mL, Oral, ONCE, 1 dose, [place] 01/12/21 at 0430, Routine [facility] cephALEXin (KEFLEX) 500 mg capsule 01-12 00:00: 04-07 00:00 :00 No [id number] 500mg Take 1 capsule by mouth 3 (three) times daily. [facility] HYDROcodone -acetaminop hen (NORCO 5) 5-325 mg tablet 1 tablet 12-11 02:00: 00 12-11 01:29 :00 No 1{tbl} 1 tablet, Oral, ONCE, 1 dose, 12/10/20 at 2100, ROSELYN [facility] LORazepam (ATIVAN) injection 1 mg 12-11 00:30: 00 12-10 23:36 :00 No 1mg 1 mg, Slow IV Push, ONCE, 1 dose, 12/10/20 at 1930, STAT [facility] ketorolac (TORADOL) injection 30 mg 12-11 00:30: 00 12-10 23:36 :00 No 30mg 30 mg, Slow IV Push, ONCE, 1 dose, 12/10/20 at 1930, ROSELYN
Fa culty member approving Restricted medication : EMERGENCY ROOM, [facility] ondansetron (ZOFRAN (PF)) injection 4 mg 12-10 23:45: 00 12-10 22:46 :00 No 4mg 4 mg, Slow IV Push, ONCE, 1 dose, 12/10/20 at 1845, RO[facility]LYN [facility] NaCl 0.9% (NS) bolus infusion 2,000 mL 12-10 22:45: 00 12-11 01:29 :00 No 2000mL at 999 mL/hr, 2,000 mL, IV Infusion, ONCE, 1 dose, 12/10/20 at 1745, RO[facility]LYN [facility] proMETHazin e 25 mg tablet 12-10 00:00: 00 04-07 00:00 :00 No [id number] 12.5mg Take 0.5 tablets by mouth every 6 (six) hours as needed for N/V unresponsi ve to Ondansetro n. [facility] morpHINE injection 4 mg 12-04 22:30: 00 12-04 21:37 :00 No 4mg 4 mg, Slow IV Push, ONCE, 1 dose, 12/04/20 at 1730, STAT [facility] losartan 50 mg tablet 12-04 22:03: 53 Yes 50mg Take 50 mg by mouth daily. [facility] LORazepam (ATIVAN) tablet 1 mg 12-04 21:45: 00 12-04 20:44 :00 No 1mg 1 mg, Oral, ONCE, 1 dose, 12/04/20 at 1645, [facility] ondansetron (ZOFRAN (PF)) injection 4 mg 12-04 21:15: 00 12-04 20:22 :00 No 4mg 4 mg, Slow IV Push, ONCE, 1 dose, 12/04/20 at 1615, [facility] morpHINE injection 4 mg 12-04 21:15: 00 12-04 20:21 :00 No 4mg 4 mg, Slow IV Push, ONCE, 1 dose, 12/04/20 at 1615, STAT [facility] ALPRAZolam (XANAX) 2 mg tablet 11-04 04:24: 19 11-03 00:00 :00 No 2mg Take 2 mg by mouth at bedtime. [facility] LORazepam (ATIVAN) injection 1 mg 11-04 04:00: 00 11-04 02:57 :00 No 1mg 1 mg, Slow IV Push, ONCE, 1 dose, [facility] 11/03/20 at 2300, STAT [facility] LORazepam (ATIVAN) tablet 1 mg 11-04 04:00: 00 11-04 02:57 :00 No 1mg 1 mg, Oral, ONCE, 1 dose, [place] 11/03/20 at 2300, [facility] clonazePAM 0.5 mg tablet 11-01 00:00: 00 04-07 00:00 :00 No .5mg Take 0.5 mg by mouth. [facility] SERTraline 100 mg tablet 11-01 00:00: 00 04-07 00:00 :00 No 100mg Take 100 mg by mouth. [facility] busPIRone 10 mg tablet 10-18 00:00: 00 04-07 00:00 :00 No 10mg Take 10 mg by mouth. [facility] Ciprofloxac in/Dexameth asone (Ciprodex 0.3%-0.1% Otic*) 1 Ea SUSP Ciprofloxac in/Dexameth asone (Ciprodex 0.3%-0.1% Otic*) 1 Ea SUSP 09-19 13:53: 00 09-30 00:00 :00 No [facility] 800 mg 09-17 16:55: 00 09-17 16:57 :00 No 800mg 800 mg, Oral, ONCE, 1 dose, 09/17/20 at 1100, ROSELYN [facility] benzonatate 100 mg capsule 09-17 00:00: 00 04-07 00:00 :00 No [id number] 100mg Take 1 capsule by mouth 3 (three) times daily as needed for Cough. [facility] amoxicillin 500 mg capsule 09-17 00:00: 00 09-28 04:59 :00 No [id number] 500mg Take 1 capsule by mouth 3 (three) times daily for 10 days. [facility] HYDROcodone -acetaminop hen (NORCO) 10-325 mg tablet 1 tablet 09-07 07:45: 00 09-07 07:09 :00 No 1{tbl} 1 tablet, Oral, ONCE, 1 dose, 09/07/20 at 0145, Routine [facility] ondansetron (ZOFRAN-ODT ) disintegrat ing tablet 4 mg 09-07 07:15: 00 09-07 07:15 :00 No 4mg 4 mg, Oral, ONCE, 1 dose, 09/07/20 at 0130, Routine [facility] ibuprofen 800 mg tablet 09-07 00:00: 00 Yes [id number] 800mg Take 1 tablet by mouth every 8 (eight) hours as needed for Pain (scale 4-6). [facility] ketorolac (TORADOL) injection 30 mg 08-28 10:45: 00 08-28 09:48 :00 No 30mg 30 mg, Slow IV Push, ONCE, 1 dose, 08/28/20 at 0445, Routine
ground operations crew member approving Restricted medication : OLIVIA GARCIA [facility] ondansetron (ZOFRAN (PF)) injection 4 mg 08-28 10:00: 00 08-28 09:06 :00 No 4mg 4 mg, Slow IV Push, ONCE, 1 dose, 08/28/20 at 0400, ROSELYN [facility] FENTanyl PF (SUBLIMAZE (PF)) injection 50 mcg 08-28 10:00: 00 08-28 09:07 :00 No 50ug 50 mcg, Slow IV Push, ONCE, 1 dose, 08/28/20 at 0400, Routine [facility] maalox:diph enhydrAMINE :lidocaine 2 % viscous 1:1:1 (FIRST-MOUT HWASH BLM) oral suspension 15 mL 08-28 10:00: 00 08-28 09:07 :00 No 15mL 15 mL, Oral, ONCE, 1 dose, 08/28/20 at 0400, Routine [facility] iohexol (OMNIPAQUE 350 BULK-100 mL) injection 120 mL 08-28 09:30: 00 08-28 09:11 :00 No 120mL 120 mL, Intravenou s, ONCE, 1 dose, 08/28/20 at 0330, Routine [facility] dicyclomine 20 mg tablet 08-28 00:00: 00 04-07 00:00 :00 No [id number] 20mg Take 1 tablet by mouth every 6 (six) hours as needed for Abdominal pain. [facility] ondansetron (ZOFRAN) 4 mg tablet 08-28 00:00: 00 09-17 00:00 :00 No [id number] 4mg Take 1 tablet by mouth every 8 (eight) hours as needed for Nausea and Vomiting (N/V). [facility] FENTanyl PF (SUBLIMAZE (PF)) injection 25 mcg 08-14 19:00: 08-14 18:09 :00 No 25ug 25 mcg, Slow IV Push, ONCE, 1 dose, 08/14/20 at 1300, STAT [facility] ondansetron (ZOFRAN (PF)) injection 4 mg 08-14 19:00: 00 08-14 18:10 :00 No 4mg 4 mg, Slow IV Push, ONCE, 1 dose, 08/14/20 at 1300, ROSELYN [facility] ketorolac (TORADOL) injection 15 mg 08-14 19:00: 08-14 18:09 :00 No 15mg 15 mg, Slow IV Push, ONCE, 1 dose, 08/14/20 at 1300, ROSELYN
Fa culty member approving Restricted medication : BEST TAYLOR [facility] piperacilli n-tazobacta m (ZOSYN) 3.375 g in NaCl 0.9% (NS) 100 mL MINI-BAG 08-14 19:00: 00 08-14 18:38 :00 No 3.375g 3.375 g, IV Piggyback, ONCE, 1 dose, 08/14/20 at 1300, 100 mL
Reas on for Anti-Infec tive: Documented Infection< br>Documen kaushik Infection Site: Urine
D uration of Therapy: Other (see Comments) [facility] NaCl 0.9% (NS) bolus infusion 1,000 mL 08-14 19:00: 00 08-14 19:00 :00 No 1000mL at 999 mL/hr, 1,000 mL, IV Infusion, ONCE, 1 dose, 08/14/20 at 1300, STAT [facility] guaiFENesin 100 mg/5 mL solution 08-14 00:00: 04-07 00:00 :00 No [id number] 100mg Take 5 mL by mouth every 4 (four) hours. [facility] ondansetron 4 mg disintegrat ing tablet 08-14 00:00: 09-17 00:00 :00 No [id number] 4mg Take 1 tablet by mouth every 8 (eight) hours as needed for Nausea and Vomiting (N/V). [facility] ibuprofen 600 mg tablet 08-14 00:00: 00 09-17 00:00 :00 No [id number] 600mg Take 1 tablet by mouth every 6 (six) hours as needed for Pain (scale 4-6). [facility] amoxicillin -clavulanat e 875-125 mg per tablet 08-14 00:00: 00 08-25 05:59 :00 No [id number] 1{tbl} Take 1 tablet by mouth 2 (two) times daily for 10 days. [facility] fluconazole (DIFLUCAN) tablet 150 mg 08-11 15:00: 00 Yes 150mg 150 mg, Oral, DAILY, First dose on [place] 08/11/20 at 0900, Until Discontinu ed, ROSELYN
Re ason for Anti-Infec tive: Documented Infection< br>Documen kaushik Infection Site: Urine
D uration of Therapy: Other (see Comments) [facility] HYDROcodone -acetaminop hen (NORCO) 10-325 mg tablet 1 tablet 08-11 05:30: 00 08-11 05:08 :00 No 1{tbl} 1 tablet, Oral, ONCE NOW, 1 dose, Sat08/10/20 at 2330, Routine [facility] FENTanyl PF (SUBLIMAZE (PF)) injection 25 mcg 08-11 04:30: 00 08-11 03:19 :00 No 25ug 25 mcg, Slow IV Push, ONCE, 1 dose, Sat08/10/20 at 2230, STAT [facility] ondansetron (ZOFRAN (PF)) injection 4 mg 08-11 04:15: 00 08-11 03:19 :00 No 4mg 4 mg, Slow IV Push, ONCE, 1 dose, Sat08/10/20 at 2215, ROSELYN [facility] NaCl 0.9% (NS) bolus infusion 1,000 mL 08-11 01:45: 00 08-11 03:45 :00 No 1000mL at 999 mL/hr, 1,000 mL, IV Infusion, ONCE, 1 dose, Sat08/10/20 at 1945, STAT [facility] ketorolac (TORADOL) injection 30 mg 08-11 01:45: 00 08-11 02:31 :00 No 30mg 30 mg, Slow IV Push, ONCE, 1 dose, Sat08/10/20 at 1945, ROSELYN
Fa culty member approving Restricted medication : BEST TAYLOR [facility] traMADoL (ULTRAM) 50 mg tablet 08-10 00:00: 00 09-17 00:00 :00 No [id number] 50mg Take 1 tablet by mouth every 6 (six) hours as needed for Pain (scale 7-10). Indication s: acute pain [facility] ibuprofen 800 mg tablet 08-07 00:00: 00 09-17 00:00 :00 No [id number] 800mg Take 1 tablet by mouth every 8 (eight) hours. [facility] amoxicillin 500 mg capsule 08-07 00:00: 00 09-17 00:00 :00 No [id number] 500mg Take 1 capsule by mouth 3 (three) times daily. [facility] traMADoL 50 mg tablet 08-07 00:00: 00 09-17 00:00 :00 No [id number] 50mg Take 1 tablet by mouth every 6 (six) hours as needed for Pain (scale 4-6). Indication s: acute pain [facility] LORazepam (ATIVAN) tablet 1 mg 2019-07 03:15: 00 07-01 02:21 :00 No 1mg 1 mg, Oral, ONCE, 1 dose, [place] 06/30/20 at 2115, ROSELYN [facility] FENTanyl PF (SUBLIMAZE (PF)) injection 50 mcg 2019-07 02:30: 00 07-01 01:39 :00 No 50ug 50 mcg, Slow IV Push, ONCE, 1 dose, [place] 06/30/20 at 2030, Routine [facility] ondansetron (ZOFRAN-ODT ) disintegrat ing tablet 4 mg 2019-07 01:15: 00 07-01 00:52 :00 No 4mg 4 mg, Oral, ONCE, 1 dose, [place] 06/30/20 at 1915, Routine [facility] ketorolac (TORADOL) injection 30 mg 2019-07 01:15: 00 07-01 00:52 :00 No 30mg 30 mg, Slow IV Push, ONCE, 1 dose, [place] 06/30/20 at 1915, ROSELYN
[facility] approving Restricted medication : ABDIAS ROBERTSON [facility] albuterol 90 mcg/actuati on inhaler 2019-07 00:00: 00 04-07 00:00 :00 No [id number] 2{puff} Inhale 2 Puffs every 4 (four) hours as needed for Wheezing or Shortness of Breath. [facility] hydrOXYzine 25 mg tablet 2019-07 00:00: 09-17 00:00 :00 No [id number] 25mg Take 1 tablet by mouth every 6 (six) hours as needed for Anxiety. [facility] naproxen sodium (ANAPROX DS) 550 mg tablet 2019-07 00:00: 04-07 00:00 :00 No [id number] 550mg Take 1 tablet by mouth 2 (two) times daily with meals. [facility] methylPREDN ISolone (MEDROL, BEBETO,) 4 mg tablets 2019-07 00:00: 00 09-17 00:00 :00 No [id number] Take by mouth SEE-INSTRU CTIONS. follow package directions [facility] methocarbam oL 500 mg tablet 2019-07 00:00: 00 07-04 05:59 :00 No [id number] 500mg Take 1 tablet by mouth 3 (three) times daily for 5 days. [facility] proMETHazin e (PHENERGAN) tablet 25 mg 2019-07 04:45: 00 06-13 03:37 :00 No 25mg 25 mg, Oral, ONCE, 1 dose, 06/12/20 at 2245, ROSELYN [facility] ondansetron (ZOFRAN (PF)) injection 4 mg 2019-07 03:00: 00 06-13 01:59 :00 No 4mg 4 mg, Slow IV Push, ONCE, 1 dose, 06/12/20 at 2100, ROSELYN [facility] ketorolac (TORADOL) injection 15 mg 2019-07 03:00: 00 06-13 01:58 :00 No 15mg 15 mg, Intramuscu lar, ONCE, 1 dose, 06/12/20 at 2100, ROSELYN
Fa culty member approving Restricted medication : LEEANNE WISE [facility] morpHINE injection 4 mg 2019-07 01:30: 00 06-13 00:41 :00 No 4mg 4 mg, Slow IV Push, ONCE, 1 dose, 06/12/20 at 1930, STAT [facility] ondansetron (ZOFRAN (PF)) injection 4 mg 2019-07 00:45: 00 06-13 00:41 :00 No 4mg 4 mg, Slow IV Push, ONCE, 1 dose, 06/12/20 at 1845, ROSELYN [facility] NaCl 0.9% (NS) bolus infusion 1,000 mL 2019-07 23:45: 00 06-13 03:54 :00 No 1000mL at 999 mL/hr, 1,000 mL, IV Infusion, ONCE, 1 dose, 06/12/20 at 1745, RO[facility]N [facility] dicyclomine 20 mg tablet 2019-07 00:00: 00 04-07 00:00 :00 No [id number] 20mg Take 1 tablet by mouth 4 (four) times daily as needed for Abdominal pain. [facility] proMETHazin e 25 mg tablet 2019-07 00:00: 00 09-17 00:00 :00 No [id number] 25mg Take 1 tablet by mouth every 6 (six) hours as needed for Nausea and Vomiting (N/V). [facility] famotidine 20 mg tablet 2019-07 00:00: 00 06-27 05:59 :00 No [id number] 20mg Take 1 tablet by mouth at bedtime for 14 days. [facility] haloperidol lactate (HALDOL) injection 2.5 mg 2019-07 01:00: 00 05-16 23:51 :00 No 2.5mg 2.5 mg, Intravenou s, ONCE, 1 dose, 05/16/20 at 1900, STAT [facility] NaCl 0.9% (NS) bolus infusion 1,000 mL 2019-07 23:45: 00 05-17 00:54 :00 No 1000mL at 999 mL/hr, 1,000 mL, IV Infusion, ONCE, 1 dose, Sat05/16/20 at 1745, ROSELYN [facility] proMETHazin e (PHENERGAN) 25 mg suppository 2019-07 00:00: 00 Yes [id number] 25mg Insert 1 Suppositor y into rectum every 4 (four) hours as needed for Nausea and Vomiting (N/V). [facility] ondansetron (ZOFRAN (PF)) injection 4 mg 2019-07 07:30: 00 05-15 06:26 :00 No 4mg 4 mg, Slow IV Push, ONCE, 1 dose, [place] 05/15/20 at 0130, ROSELYN [facility] iohexol (OMNIPAQUE 350 BULK-100 mL) injection 120 mL 2019-07 07:00: 00 05-15 06:52 :00 No 120mL 120 mL, Intravenou s, ONCE, 1 dose, [place] 05/15/20 at 0100, Routine [facility] ondansetron (ZOFRAN (PF)) injection 4 mg 2019-07 06:30: 00 05-15 05:52 :00 No 4mg 4 mg, Slow IV Push, ONCE, 1 dose, [place] 05/15/20 at 0030, ROSE[place]N [facility] ALPRAZolam (XANAX) 2 mg tablet 2019-07 05:30: 59 Yes 2mg Take 2 mg by mouth at bedtime. [facility] zolpidem 5 mg tablet 12-20 00:00: 00 04-07 00:00 :00 No 5mg Take 5 mg by mouth. [facility] Immunizations Ordered Immunization Name Filled Immunization Name Date Status Comments Source Covid-19 Vaccine Moderna (Spikevax), Mrna-lnp, Zackery [facility], [facility] Moderna (Spikevax), Mrna[facility]lnp, [facility]ackery Protein, [facility] Moderna (Spikevax), Mrna-lnp, Zackery Protein, Pf Unknown [facility] Cov[facility]-19 Vaccine Moderna (Spikevax), Mrna-lnp, Zackery Protein, Pf [facility] Vaccine Moderna (Spikevax), Mrna-lnp, Zackery Protein, Pf Unknown [facility] Cov[facility]-19 Vaccine Moderna (Spikevax), Mrna-lnp, Zackery Protein, Pf Unknown Completed [facility] - External Covid-19 Vaccine Moderna (Spikevax), Mrna-lnp, Zackery Protein, Pf Unknown Completed [facility] - External Covid-19 Vaccine Moderna (Spikevax), Mrna-lnp, Zackery Protein, Pf Unknown Completed [facility] - External Covid-19 Vaccine Moderna (Spikevax), Mrna-lnp, Zackery Protein, Pf Unknown Completed [facility] - External Covid-19 Vaccine Moderna (Spikevax), Mrna-lnp, Zackery Protein, Pf Unknown Completed [facility] - External Vital Signs Vital Name Observation Time Observation Value Comments S ource Heart rate 2024-10-24 04:50:00 77 /min [facility] Body temperature 2024-10-24 04:50:00 36.83 Latanya [facility] Respiratory rate 2024-10-24 04:50:00 21 /min [facility] Oxygen saturation in Arterial blood by Pulse oximetry 2024-10-24 04:50:00 96 /min [facility] Systolic blood pressure 2024-10-24 04:15:00 146 mm[Hg] [facility] Diastolic blood pressure 2024-10-24 04:15:00 90 mm[Hg] [facility] Body height 2024-10-24 01:16:00 157.5 cm [facility] Body weight 2024-10-24 01:16:00 108.863 kg [facility] BMI 2024-10-24 01:16:00 43.90 kg/m2 [facility] Systolic blood pressure 2024-10-23 15:10:00 132 mm[Hg] [facility] - External Diastolic blood pressure 2024-10-23 15:10:00 82 mm[Hg] [facility] - External Heart rate 2024-10-23 15:10:00 79 /min [facility] - External Body temperature 2024-10-23 15:10:00 36.72 Latanya [facility] - External Respiratory rate 2024-10-23 15:10:00 18 /min [facility] - External Body height 2024-10-23 15:10:00 157.5 cm [facility] - External Body weight 2024-10-23 15:10:00 97.433 kg [facility] - External BMI 2024-10-23 15:10:00 39.29 kg/m2 [facility] - External Oxygen saturation in Arterial blood by Pulse oximetry 2024-10-23 15:10:00 97 /min [facility] - External Systolic blood pressure 2024-10-13 07:35:00 135 mm[Hg] [facility] Diastolic blood pressure 2024-10-13 07:35:00 87 mm[Hg] [facility] Heart rate 2024-10-13 07:35:00 86 /min [facility] Body temperature 2024-10-13 07:35:00 36.72 Latanya [facility] Respiratory rate 2024-10-13 07:35:00 19 /min [facility] Oxygen saturation in Arterial blood by Pulse oximetry 2024-10-13 07:35:00 98 /min [facility] Body height 2024-10-13 03:27:00 157.5 cm [facility] Body weight 2024-10-13 03:27:00 104.327 kg [facility] BMI 2024-10-13 03:27:00 42.07 kg/m2 [facility] Body temperature 2024-07-19 07:17:00 36.56 Latanya [facility] Heart rate 2024-07-19 07:14:00 74 /min [facility] Respiratory rate 2024-07-19 07:14:00 27 /min [facility] Oxygen saturation in Arterial blood by Pulse oximetry 2024-07-19 07:14:00 100 /min [facility] Systolic blood pressure 2024-07-19 07:00:00 123 mm[Hg] [facility] Diastolic blood pressure 2024-07-19 07:00:00 93 mm[Hg] [facility] Body height 2024-07-19 04:44:00 157.5 cm [facility] Body weight 2024-07-19 04:44:00 104.327 kg [facility] BMI 2024-07-19 04:44:00 42.07 kg/m2 [facility] Systolic blood pressure 2024-07-04 07:00:00 132 mm[Hg] [facility] Diastolic blood pressure 2024-07-04 07:00:00 98 mm[Hg] [facility] Heart rate 2024-07-04 07:00:00 85 /min [facility] Body temperature 2024-07-04 07:00:00 36.78 Latanya [facility] Respiratory rate 2024-07-04 07:00:00 18 /min [facility] Oxygen saturation in Arterial blood by Pulse oximetry 2024-07-04 07:00:00 94 /min [facility] Body height 2024-07-04 01:53:00 157.5 cm [facility] Body weight 2024-07-04 01:53:00 105.688 kg [facility] BMI 2024-07-04 01:53:00 42.62 kg/m2 [facility] Systolic blood pressure 2024-06-21 08:00:00 180 mm[Hg] [facility] Diastolic blood pressure 2024-06-21 08:00:00 107 mm[Hg] [facility] Heart rate 2024-06-21 08:00:00 89 /min [facility] Body temperature 2024-06-21 08:00:00 37.11 Latanya [facility] Respiratory rate 2024-06-21 08:00:00 22 /min [facility] Body height 2024-06-21 08:00:00 157.5 cm [facility] Body weight 2024-06-21 08:00:00 108.41 kg [facility] BMI 2024-06-21 08:00:00 43.71 kg/m2 [facility] Oxygen saturation in Arterial blood by Pulse oximetry 2024-06-21 08:00:00 100 /min [facility] Heart rate 2024-06-15 06:22:00 87 /min [facility] Body temperature 2024-06-15 06:22:00 37.11 Latanya [facility] Oxygen saturation in Arterial blood by Pulse oximetry 2024-06-15 06:22:00 96 /min [facility] Systolic blood pressure 2024-06-15 06:00:00 137 mm[Hg] [facility] Diastolic blood pressure 2024-06-15 06:00:00 85 mm[Hg] [facility] Respiratory rate 2024-06-15 06:00:00 15 /min [facility] Body height 2024-06-15 03:23:00 157.5 cm [facility] Body weight 2024-06-15 03:23:00 109.997 kg [facility] BMI 2024-06-15 03:23:00 44.35 kg/m2 [facility] Body temperature 2024-06-07 08:35:48 36.89 Latanya [facility] Systolic blood pressure 2024-06-07 08:00:00 129 mm[Hg] [facility] Diastolic blood pressure 2024-06-07 08:00:00 108 mm[Hg] [facility] Heart rate 2024-06-07 08:00:00 69 /min [facility] Respiratory rate 2024-06-07 08:00:00 24 /min [facility] Oxygen saturation in Arterial blood by Pulse oximetry 2024-06-07 08:00:00 97 /min [facility] Body height 2024-06-07 04:02:00 157.5 cm [facility] Body weight 2024-06-07 04:02:00 105.688 kg [facility] BMI 2024-06-07 04:02:00 42.62 kg/m2 [facility] Systolic blood pressure 2024-05-19 19:32:00 130 mm[Hg] [facility] Diastolic blood pressure 2024-05-19 19:32:00 74 mm[Hg] [facility] Heart rate 2024-05-19 19:32:00 84 /min [facility] Respiratory rate 2024-05-19 19:32:00 18 /min [facility] Oxygen saturation in Arterial blood by Pulse oximetry 2024-05-19 19:32:00 99 /min [facility] Body temperature 2024-05-19 17:44:00 36.83 Latanya [facility] Body height 2024-05-19 17:44:00 157.5 cm [facility] Body weight 2024-05-19 17:44:00 108.863 kg [facility] BMI 2024-05-19 17:44:00 43.90 kg/m2 [facility] Systolic blood pressure 2024-05-18 16:21:00 126 mm[Hg] [facility] - External Diastolic blood pressure 2024-05-18 16:21:00 [...] External Heart rate 2024-05-18 04:14:00 111 /min [facility] Body temperature 2024-05-18 04:14:00 37 Latanya [facility] Respiratory rate 2024-05-18 04:14:00 27 /min [facility] Oxygen saturation in Arterial blood by Pulse oximetry 2024-05-18 04:14:00 94 /min [facility] Systolic blood pressure 2024-05-18 04:00:00 141 mm[Hg] [facility] Diastolic blood pressure 2024-05-18 04:00:00 122 mm[Hg] [facility] Body height 2024-05-18 00:33:00 157.5 cm [facility] Body weight 2024-05-18 00:33:00 107.502 kg [facility] BMI 2024-05-18 00:33:00 43.35 kg/m2 [facility] Heart rate 2024-05-08 02:05:00 91 /min [facility] Respiratory rate 2024-05-08 02:05:00 22 /min [facility] Oxygen saturation in Arterial blood by Pulse oximetry 2024-05-08 02:05:00 95 /min [facility] Systolic blood pressure 2024-05-08 02:00:00 140 mm[Hg] [facility] Diastolic blood pressure 2024-05-08 02:00:00 86 mm[Hg] [facility] Body temperature 2024-05-07 23:46:00 36.78 Latanya [facility] Body height 2024-05-07 23:46:00 157.5 cm [facility] Body weight 2024-05-07 23:46:00 107.729 kg [facility] BMI 2024-05-07 23:46:00 43.44 kg/m2 [facility] Height 2024-04-10 16:28:00 157.786796 cm [facility] Weight 2024-04-10 16:28:00 104.565320 kg [facility] BMI (Body Mass Index) 2024-04-10 16:28:00 42.1 kg/m2 [facility] Systolic blood pressure 2024-04-09 01:30:00 134 mm[Hg] [facility] Diastolic blood pressure 2024-04-09 01:30:00 64 mm[Hg] [facility] Heart rate 2024-04-09 01:30:00 102 /min [facility] Body temperature 2024-04-09 01:30:00 36.61 Latanya [facility] Respiratory rate 2024-04-09 01:30:00 17 /min [facility] Oxygen saturation in Arterial blood by Pulse oximetry 2024-04-09 01:30:00 96 /min [facility] Body height 2024-04-08 22:31:00 157.5 cm [facility] Body weight 2024-04-08 22:31:00 104.327 kg [facility] BMI 2024-04-08 22:31:00 42.07 kg/m2 [facility] Body temperature 2023-12-13 14:10:00 36.72 Latanya [facility] - External Respiratory rate 2023-12-13 14:10:00 15 /min [facility] - External Body height 2023-12-13 14:10:00 157.5 cm [facility] - External Body weight 2023-12-13 14:10:00 105.688 kg [facility] Ariasybbeck - External BMI 2023-12-13 14:10:00 42.62 kg/m2 [facility] Ariasybbeck - External Systolic blood pressure 2023-12-13 14:10:00 [...] Systolic blood pressure 2023-10-11 05:00:00 126 mm[Hg] [facility] Diastolic blood pressure 2023-10-11 05:00:00 87 mm[Hg] [facility] Heart rate 2023-10-11 05:00:00 94 /min [facility] Respiratory rate 2023-10-11 05:00:00 22 /min [facility] Oxygen saturation in Arterial blood by Pulse oximetry 2023-10-11 05:00:00 98 /min [facility] Body temperature 2023-10-11 02:28:00 37.22 Latanya [facility] Body height 2023-10-11 02:28:00 157.5 cm [facility] Body weight 2023-10-11 02:28:00 99.791 kg [facility] BMI 2023-10-11 02:28:00 40.24 kg/m2 [facility] Systolic blood pressure 2023-07-02 04:10:00 147 mm[Hg] [facility] Diastolic blood pressure 2023-07-02 04:10:00 89 mm[Hg] [facility] Heart rate 2023-07-02 04:10:00 73 /min [facility] Respiratory rate 2023-07-02 04:10:00 19 /min [facility] Oxygen saturation in Arterial blood by Pulse oximetry 2023-07-02 04:10:00 98 /min [facility] Body temperature 2023-07-02 01:47:00 36.78 Latanya [facility] Body height 2023-07-02 01:47:00 160 cm [facility] Body weight 2023-07-02 01:47:00 97.659 kg [facility] BMI 2023-07-02 01:47:00 38.14 kg/m2 [facility] Systolic blood pressure 2023-05-10 01:00:00 133 mm[Hg] [facility] Diastolic blood pressure 2023-05-10 01:00:00 81 mm[Hg] [facility] Heart rate 2023-05-10 01:00:00 64 /min [facility] Respiratory rate 2023-05-10 01:00:00 21 /min [facility] Oxygen saturation in Arterial blood by Pulse oximetry 2023-05-10 01:00:00 96 /min [facility] Body temperature 2023-05-09 22:43:00 36.67 Latanya [facility] Body height 2023-05-09 22:43:00 157.5 cm [facility] Body weight 2023-05-09 22:43:00 99.791 kg [facility] BMI 2023-05-09 22:43:00 40.24 kg/m2 [facility] Systolic blood pressure 2023-05-01 01:00:00 107 mm[Hg] [facility] Diastolic blood pressure 2023-05-01 01:00:00 80 mm[Hg] [facility] Heart rate 2023-05-01 01:00:00 80 /min [facility] Body temperature 2023-05-01 01:00:00 37.06 Latanya [facility] Respiratory rate 2023-05-01 01:00:00 16 /min [facility] Oxygen saturation in Arterial blood by Pulse oximetry 2023-05-01 01:00:00 98 /min [facility] Body height 2023-04-30 22:16:00 157.5 cm [facility] Body weight 2023-04-30 22:16:00 95.255 kg [facility] BMI 2023-04-30 22:16:00 38.41 kg/m2 [facility] Systolic blood pressure 2023-04-17 02:00:00 147 mm[Hg] [facility] Diastolic blood pressure 2023-04-17 02:00:00 83 mm[Hg] [facility] Heart rate 2023-04-17 02:00:00 90 /min [facility] Respiratory rate 2023-04-17 02:00:00 18 /min [facility] Oxygen saturation in Arterial blood by Pulse oximetry 2023-04-17 02:00:00 96 /min [facility] Body temperature 2023-04-17 01:33:00 36.78 Latanya [facility] Body height 2023-04-17 01:33:00 157.5 cm [facility] Body weight 2023-04-17 01:33:00 99.791 kg [facility] BMI 2023-04-17 01:33:00 40.24 kg/m2 [facility] Systolic blood pressure 2023-04-09 01:04:48 135 mm[Hg] [facility] Diastolic blood pressure 2023-04-09 01:04:48 84 mm[Hg] [facility] Heart rate 2023-04-09 01:04:48 67 /min [facility] Respiratory rate 2023-04-09 01:04:48 16 /min [facility] Oxygen saturation in Arterial blood by Pulse oximetry 2023-04-09 01:04:48 99 /min [facility] Body temperature 2023-04-08 22:16:00 36.67 Latanya [facility] Body height 2023-04-08 22:16:00 157.5 cm [facility] Body weight 2023-04-08 22:16:00 99.791 kg [facility] BMI 2023-04-08 22:16:00 40.24 kg/m2 [facility] Systolic blood pressure 2023-03-10 05:00:00 156 mm[Hg] [facility] Diastolic blood pressure 2023-03-10 05:00:00 94 mm[Hg] [facility] Heart rate 2023-03-10 05:00:00 75 /min [facility] Respiratory rate 2023-03-10 05:00:00 21 /min [facility] Oxygen saturation in Arterial blood by Pulse oximetry 2023-03-10 05:00:00 97 /min [facility] Body temperature 2023-03-10 01:20:00 36.72 Latanya [facility] Body height 2023-03-10 01:20:00 157.5 cm [facility] Body weight 2023-03-10 01:20:00 100.381 kg [facility] BMI 2023-03-10 01:20:00 40.48 kg/m2 [facility] Systolic blood pressure 2023-03-02 06:00:00 126 mm[Hg] [facility] Diastolic blood pressure 2023-03-02 06:00:00 79 mm[Hg] [facility] Heart rate 2023-03-02 06:00:00 69 /min [facility] Respiratory rate 2023-03-02 06:00:00 23 /min [facility] Oxygen saturation in Arterial blood by Pulse oximetry 2023-03-02 06:00:00 94 /min [facility] Body temperature 2023-03-02 00:34:00 37.28 Latanya [facility] Body height 2023-03-02 00:34:00 157.5 cm [facility] Body weight 2023-03-02 00:34:00 99.791 kg [facility] BMI 2023-03-02 00:34:00 40.24 kg/m2 [facility] Systolic blood pressure 2023-02-18 06:46:00 126 mm[Hg] [facility] Diastolic blood pressure 2023-02-18 06:46:00 77 mm[Hg] [facility] Heart rate 2023-02-18 06:46:00 79 /min [facility] Respiratory rate 2023-02-18 06:46:00 16 /min [facility] Oxygen saturation in Arterial blood by Pulse oximetry 2023-02-18 06:46:00 95 /min [facility] Body temperature 2023-02-18 03:55:00 36.72 Latanya [facility] Body height 2023-02-18 03:55:00 157.5 cm [facility] Body weight 2023-02-18 03:55:00 102.331 kg [facility] BMI 2023-02-18 03:55:00 41.26 kg/m2 [facility] Systolic blood pressure 2023-02-17 16:20:00 113 mm[Hg] [facility] Diastolic blood pressure 2023-02-17 16:20:00 65 mm[Hg] [facility] Heart rate 2023-02-17 16:20:00 65 /min [facility] Body temperature 2023-02-17 16:20:00 36.83 Latanya [facility] Respiratory rate 2023-02-17 16:20:00 16 /min [facility] Oxygen saturation in Arterial blood by Pulse oximetry 2023-02-17 16:20:00 97 /min [facility] Body weight 2023-02-17 08:50:00 99.973 kg [facility] BMI 2023-02-17 08:50:00 40.31 kg/m2 [facility] Body height 2023-02-16 01:19:00 157.5 cm [facility] Systolic blood pressure 2022-01-10 01:24:00 120 mm[Hg] [facility] Diastolic blood pressure 2022-01-10 01:24:00 76 mm[Hg] [facility] Heart rate 2022-01-10 01:24:00 73 /min [facility] Respiratory rate 2022-01-10 01:24:00 16 /min [facility] Oxygen saturation in Arterial blood by Pulse oximetry 2022-01-10 01:24:00 96 /min [facility] Body weight 2022-01-09 21:39:00 104.327 kg [facility] BMI 2022-01-09 21:39:00 42.07 kg/m2 [facility] Systolic blood pressure 2021-12-14 07:22:00 121 mm[Hg] [facility] Diastolic blood pressure 2021-12-14 07:22:00 86 mm[Hg] [facility] Heart rate 2021-12-14 07:22:00 80 /min [facility] Respiratory rate 2021-12-14 07:22:00 17 /min [facility] Oxygen saturation in Arterial blood by Pulse oximetry 2021-12-14 07:22:00 96 /min [facility] Body temperature 2021-12-14 03:06:00 36.72 Latanya [facility] Body height 2021-12-14 03:06:00 157.5 cm [facility] Body weight 2021-12-14 03:06:00 95.255 kg [facility] BMI 2021-12-14 03:06:00 38.41 kg/m2 [facility] Systolic blood pressure 2021-11-12 04:15:00 112 mm[Hg] [facility] Diastolic blood pressure 2021-11-12 04:15:00 75 mm[Hg] [facility] Heart rate 2021-11-12 04:15:00 92 /min [facility] Body temperature 2021-11-12 04:15:00 36.44 Latanya [facility] Respiratory rate 2021-11-12 04:15:00 18 /min [facility] Oxygen saturation in Arterial blood by Pulse oximetry 2021-11-12 04:15:00 98 /min [facility] Body height 2021-11-12 00:41:00 157.5 cm [facility] Body weight 2021-11-12 00:41:00 95.255 kg [facility] BMI 2021-11-12 00:41:00 38.41 kg/m2 [facility] Systolic blood pressure 2021-09-12 01:31:00 142 mm[Hg] [facility] Diastolic blood pressure 2021-09-12 01:31:00 80 mm[Hg] [facility] Heart rate 2021-09-12 01:31:00 78 /min [facility] Body temperature 2021-09-12 01:31:00 36.72 Latanya [facility] Respiratory rate 2021-09-12 01:31:00 18 /min [facility] Body height 2021-09-12 01:31:00 157.5 cm [facility] Body weight 2021-09-12 01:31:00 99.791 kg [facility] BMI 2021-09-12 01:31:00 40.24 kg/m2 [facility] Oxygen saturation in Arterial blood by Pulse oximetry 2021-09-12 01:31:00 97 /min [facility] Systolic blood pressure 2021-08-15 08:20:00 120 mm[Hg] [facility] Diastolic blood pressure 2021-08-15 08:20:00 74 mm[Hg] [facility] Heart rate 2021-08-15 08:20:00 69 /min [facility] Respiratory rate 2021-08-15 08:20:00 20 /min [facility] Oxygen saturation in Arterial blood by Pulse oximetry 2021-08-15 08:20:00 96 /min [facility] Body temperature 2021-08-15 05:34:00 36.22 Latanya [facility] Body height 2021-08-15 05:34:00 157.5 cm [facility] Body weight 2021-08-15 05:34:00 99.791 kg [facility] BMI 2021-08-15 05:34:00 40.24 kg/m2 [facility] Systolic blood pressure 2021-05-28 10:00:00 122 mm[Hg] [facility] Diastolic blood pressure 2021-05-28 10:00:00 78 mm[Hg] [facility] Heart rate 2021-05-28 10:00:00 75 /min [facility] Respiratory rate 2021-05-28 10:00:00 20 /min [facility] Oxygen saturation in Arterial blood by Pulse oximetry 2021-05-28 10:00:00 99 /min [facility] Body temperature 2021-05-28 05:21:00 36.11 Latanya [facility] Body height 2021-05-28 05:21:00 157.5 cm [facility] Body weight 2021-05-28 05:21:00 99.791 kg [facility] BMI 2021-05-28 05:21:00 40.24 kg/m2 [facility] Systolic blood pressure 2021-04-08 21:55:00 110 mm[Hg] [facility] Diastolic blood pressure 2021-04-08 21:55:00 80 mm[Hg] [facility] Heart rate 2021-04-08 21:55:00 70 /min [facility] Body temperature 2021-04-08 21:55:00 36.28 Latanya [facility] Respiratory rate 2021-04-08 21:55:00 16 /min [facility] Oxygen saturation in Arterial blood by Pulse oximetry 2021-04-08 21:55:00 94 /min [facility] Body height 2021-04-08 03:00:00 157.5 cm [facility] Body weight 2021-04-08 03:00:00 105.688 kg [facility] BMI 2021-04-08 03:00:00 42.62 kg/m2 [facility] Systolic blood pressure 2021-01-12 09:00:00 147 mm[Hg] [facility] Diastolic blood pressure 2021-01-12 09:00:00 71 mm[Hg] [facility] Heart rate 2021-01-12 09:00:00 103 /min [facility] Respiratory rate 2021-01-12 09:00:00 18 /min [facility] Oxygen saturation in Arterial blood by Pulse oximetry 2021-01-12 09:00:00 97 /min [facility] Body temperature 2021-01-12 07:48:00 37.06 Latanya [facility] Body height 2021-01-12 07:48:00 157.5 cm [facility] Body weight 2021-01-12 07:48:00 102.513 kg [facility] BMI 2021-01-12 07:48:00 41.34 kg/m2 [facility] Systolic blood pressure 2020-12-11 01:30:00 136 mm[Hg] [facility] Diastolic blood pressure 2020-12-11 01:30:00 88 mm[Hg] [facility] Heart rate 2020-12-11 01:30:00 99 /min [facility] Respiratory rate 2020-12-11 01:30:00 28 /min [facility] Oxygen saturation in Arterial blood by Pulse oximetry 2020-12-11 01:30:00 97 /min [facility] Body temperature 2020-12-10 22:11:00 36.78 Latanya [facility] Body weight 2020-12-10 22:11:00 99.791 kg [facility] BMI 2020-12-10 22:11:00 40.24 kg/m2 [facility] Systolic blood pressure 2020-12-04 21:30:00 126 mm[Hg] [facility] Diastolic blood pressure 2020-12-04 21:30:00 79 mm[Hg] [facility] Heart rate 2020-12-04 21:30:00 91 /min [facility] Respiratory rate 2020-12-04 21:30:00 20 /min [facility] Oxygen saturation in Arterial blood by Pulse oximetry 2020-12-04 21:30:00 96 /min [facility] Body temperature 2020-12-04 19:49:00 37.06 Latanya [facility] Body height 2020-12-04 19:49:00 157.5 cm [facility] Body weight 2020-12-04 19:49:00 99.791 kg [facility] BMI 2020-12-04 19:49:00 40.24 kg/m2 [facility] Systolic blood pressure 2020-11-04 01:42:00 142 mm[Hg] [facility] Diastolic blood pressure 2020-11-04 01:42:00 100 mm[Hg] [facility] Heart rate 2020-11-04 01:42:00 109 /min [facility] Body temperature 2020-11-04 01:42:00 36.78 Latanya [facility] Respiratory rate 2020-11-04 01:42:00 20 /min [facility] Body weight 2020-11-04 01:42:00 99.791 kg [facility] BMI 2020-11-04 01:42:00 40.24 kg/m2 [facility] Oxygen saturation in Arterial blood by Pulse oximetry 2020-11-04 01:42:00 98 /min [facility] Systolic blood pressure 2020-09-17 15:52:00 138 mm[Hg] [facility] Diastolic blood pressure 2020-09-17 15:52:00 94 mm[Hg] [facility] Heart rate 2020-09-17 15:52:00 98 /min [facility] Body temperature 2020-09-17 15:52:00 36.94 Latanya [facility] Respiratory rate 2020-09-17 15:52:00 20 /min [facility] Body weight 2020-09-17 15:52:00 95.255 kg [facility] BMI 2020-09-17 15:52:00 38.41 kg/m2 [facility] Oxygen saturation in Arterial blood by Pulse oximetry 2020-09-17 15:52:00 97 /min [facility] Systolic blood pressure 2020-09-17 15:52:00 138 mm[Hg] [facility] Diastolic blood pressure 2020-09-17 15:52:00 94 mm[Hg] [facility] Heart rate 2020-09-17 15:52:00 98 /min [facility] Body temperature 2020-09-17 15:52:00 36.94 Latanya [facility] Respiratory rate 2020-09-17 15:52:00 20 /min [facility] Body weight 2020-09-17 15:52:00 95.255 kg [facility] BMI 2020-09-17 15:52:00 38.41 kg/m2 [facility] Oxygen saturation in Arterial blood by Pulse oximetry 2020-09-17 15:52:00 97 /min [facility] Systolic blood pressure 2020-09-07 06:35:00 123 mm[Hg] [facility] Diastolic blood pressure 2020-09-07 06:35:00 56 mm[Hg] [facility] Heart rate 2020-09-07 06:35:00 97 /min [facility] Body temperature 2020-09-07 06:35:00 36.28 Latanya [facility] Respiratory rate 2020-09-07 06:35:00 18 /min [facility] Body weight 2020-09-07 06:35:00 99.791 kg [facility] BMI 2020-09-07 06:35:00 40.24 kg/m2 [facility] Oxygen saturation in Arterial blood by Pulse oximetry 2020-09-07 06:35:00 98 /min [facility] Systolic blood pressure 2020-09-07 06:35:00 123 mm[Hg] [facility] Diastolic blood pressure 2020-09-07 06:35:00 56 mm[Hg] [facility] Heart rate 2020-09-07 06:35:00 97 /min [facility] Body temperature 2020-09-07 06:35:00 36.28 Latanya [facility] Respiratory rate 2020-09-07 06:35:00 18 /min [facility] Body weight 2020-09-07 06:35:00 99.791 kg [facility] BMI 2020-09-07 06:35:00 40.24 kg/m2 [facility] Oxygen saturation in Arterial blood by Pulse oximetry 2020-09-07 06:35:00 98 /min [facility] Systolic blood pressure 2020-08-28 09:00:00 132 mm[Hg] [facility] Diastolic blood pressure 2020-08-28 09:00:00 87 mm[Hg] [facility] Heart rate 2020-08-28 09:00:00 90 /min [facility] Respiratory rate 2020-08-28 09:00:00 20 /min [facility] Oxygen saturation in Arterial blood by Pulse oximetry 2020-08-28 09:00:00 97 /min [facility] Body temperature 2020-08-28 07:59:00 36.72 Latanya [facility] Body height 2020-08-28 07:59:00 157.5 cm [facility] Body weight 2020-08-28 07:59:00 99.791 kg [facility] BMI 2020-08-28 07:59:00 40.24 kg/m2 [facility] Systolic blood pressure 2020-08-28 09:00:00 132 mm[Hg] [facility] Diastolic blood pressure 2020-08-28 09:00:00 87 mm[Hg] [facility] Heart rate 2020-08-28 09:00:00 90 /min [facility] Respiratory rate 2020-08-28 09:00:00 20 /min [facility] Oxygen saturation in Arterial blood by Pulse oximetry 2020-08-28 09:00:00 97 /min [facility] Body temperature 2020-08-28 07:59:00 36.72 Latanya [facility] Body height 2020-08-28 07:59:00 157.5 cm [facility] Body weight 2020-08-28 07:59:00 99.791 kg [facility] BMI 2020-08-28 07:59:00 40.24 kg/m2 [facility] Systolic blood pressure 2020-08-14 19:40:00 135 mm[Hg] [facility] Diastolic blood pressure 2020-08-14 19:40:00 100 mm[Hg] [facility] Heart rate 2020-08-14 19:40:00 68 /min [facility] Body temperature 2020-08-14 19:40:00 37.11 Latanya [facility] Respiratory rate 2020-08-14 19:40:00 19 /min [facility] Oxygen saturation in Arterial blood by Pulse oximetry 2020-08-14 19:40:00 99 /min [facility] Body height 2020-08-14 17:41:00 157.5 cm [facility] Body weight 2020-08-14 17:41:00 99.791 kg [facility] BMI 2020-08-14 17:41:00 40.24 kg/m2 [facility] Systolic blood pressure 2020-08-14 19:40:00 135 mm[Hg] [facility] Diastolic blood pressure 2020-08-14 19:40:00 100 mm[Hg] [facility] Heart rate 2020-08-14 19:40:00 68 /min [facility] Body temperature 2020-08-14 19:40:00 37.11 Latanya [facility] Respiratory rate 2020-08-14 19:40:00 19 /min [facility] Oxygen saturation in Arterial blood by Pulse oximetry 2020-08-14 19:40:00 99 /min [facility] Body height 2020-08-14 17:41:00 157.5 cm [facility] Body weight 2020-08-14 17:41:00 99.791 kg [facility] BMI 2020-08-14 17:41:00 40.24 kg/m2 [facility] Systolic blood pressure 2020-08-11 04:00:00 106 mm[Hg] [facility] Diastolic blood pressure 2020-08-11 04:00:00 92 mm[Hg] [facility] Heart rate 2020-08-11 04:00:00 90 /min [facility] Respiratory rate 2020-08-11 04:00:00 16 /min [facility] Oxygen saturation in Arterial blood by Pulse oximetry 2020-08-11 04:00:00 99 /min [facility] Body temperature 2020-08-11 03:12:56 37.72 Latanya [facility] Body height 2020-08-11 00:19:00 157.5 cm [facility] Body weight 2020-08-11 00:19:00 99.791 kg [facility] BMI 2020-08-11 00:19:00 40.24 kg/m2 [facility] Systolic blood pressure 2020-08-11 04:00:00 106 mm[Hg] [facility] Diastolic blood pressure 2020-08-11 04:00:00 92 mm[Hg] [facility] Heart rate 2020-08-11 04:00:00 90 /min [facility] Respiratory rate 2020-08-11 04:00:00 16 /min [facility] Oxygen saturation in Arterial blood by Pulse oximetry 2020-08-11 04:00:00 99 /min [facility] Body temperature 2020-08-11 03:12:56 37.72 Latanya [facility] Body height 2020-08-11 00:19:00 157.5 cm [facility] Body weight 2020-08-11 00:19:00 99.791 kg [facility] BMI 2020-08-11 00:19:00 40.24 kg/m2 [facility] Systolic blood pressure 2020-08-07 13:16:00 100 mm[Hg] [facility] Diastolic blood pressure 2020-08-07 13:16:00 69 mm[Hg] [facility] Heart rate 2020-08-07 13:16:00 99 /min [facility] Body temperature 2020-08-07 13:16:00 36.67 Latanya [facility] Respiratory rate 2020-08-07 13:16:00 18 /min [facility] Body weight 2020-08-07 13:16:00 95.255 kg [facility] BMI 2020-08-07 13:16:00 38.41 kg/m2 [facility] Oxygen saturation in Arterial blood by Pulse oximetry 2020-08-07 13:16:00 99 /min [facility] Systolic blood pressure 2020-08-07 13:16:00 100 mm[Hg] [facility] Diastolic blood pressure 2020-08-07 13:16:00 69 mm[Hg] [facility] Heart rate 2020-08-07 13:16:00 99 /min [facility] Body temperature 2020-08-07 13:16:00 36.67 Latanya [facility] Respiratory rate 2020-08-07 13:16:00 18 /min [facility] Body weight 2020-08-07 13:16:00 95.255 kg [facility] BMI 2020-08-07 13:16:00 38.41 kg/m2 [facility] Oxygen saturation in Arterial blood by Pulse oximetry 2020-08-07 13:16:00 99 /min [facility] Systolic blood pressure 2020-07-01 02:00:00 136 mm[Hg] [facility] Diastolic blood pressure 2020-07-01 02:00:00 85 mm[Hg] [facility] Heart rate 2020-07-01 02:00:00 73 /min [facility] Respiratory rate 2020-07-01 02:00:00 20 /min [facility] Oxygen saturation in Arterial blood by Pulse oximetry 2020-07-01 02:00:00 97 /min [facility] Body temperature 2020-06-30 23:36:00 36.56 Latanya [facility] Body height 2020-06-30 23:36:00 157.5 cm [facility] Body weight 2020-06-30 23:36:00 95.255 kg [facility] BMI 2020-06-30 23:36:00 38.41 kg/m2 [facility] Systolic blood pressure 2020-07-01 02:00:00 136 mm[Hg] [facility] Diastolic blood pressure 2020-07-01 02:00:00 85 mm[Hg] [facility] Heart rate 2020-07-01 02:00:00 73 /min [facility] Respiratory rate 2020-07-01 02:00:00 20 /min [facility] Oxygen saturation in Arterial blood by Pulse oximetry 2020-07-01 02:00:00 97 /min [facility] Body temperature 2020-06-30 23:36:00 36.56 Latanya [facility] Body height 2020-06-30 23:36:00 157.5 cm [facility] Body weight 2020-06-30 23:36:00 95.255 kg [facility] BMI 2020-06-30 23:36:00 38.41 kg/m2 [facility] Systolic blood pressure 2020-06-28 21:57:00 151 mm[Hg] [facility] Diastolic blood pressure 2020-06-28 21:57:00 88 mm[Hg] [facility] Heart rate 2020-06-28 21:57:00 94 /min [facility] Body temperature 2020-06-28 21:57:00 37.78 Latanya [facility] Respiratory rate 2020-06-28 21:57:00 16 /min [facility] Body height 2020-06-28 21:57:00 157.5 cm [facility] Body weight 2020-06-28 21:57:00 95.255 kg [facility] BMI 2020-06-28 21:57:00 38.41 kg/m2 [facility] Oxygen saturation in Arterial blood by Pulse oximetry 2020-06-28 21:57:00 96 /min [facility] Systolic blood pressure 2020-06-28 21:57:00 151 mm[Hg] [facility] Diastolic blood pressure 2020-06-28 21:57:00 88 mm[Hg] [facility] Heart rate 2020-06-28 21:57:00 94 /min [facility] Body temperature 2020-06-28 21:57:00 37.78 Latanya [facility] Respiratory rate 2020-06-28 21:57:00 16 /min [facility] Body height 2020-06-28 21:57:00 157.5 cm [facility] Body weight 2020-06-28 21:57:00 95.255 kg [facility] BMI 2020-06-28 21:57:00 38.41 kg/m2 [facility] Oxygen saturation in Arterial blood by Pulse oximetry 2020-06-28 21:57:00 96 /min [facility] Systolic blood pressure 2020-06-13 03:40:00 122 mm[Hg] [facility] Diastolic blood pressure 2020-06-13 03:40:00 78 mm[Hg] [facility] Heart rate 2020-06-13 03:40:00 90 /min [facility] Respiratory rate 2020-06-13 03:40:00 18 /min [facility] Oxygen saturation in Arterial blood by Pulse oximetry 2020-06-13 03:40:00 94 /min [facility] Body temperature 2020-06-12 23:39:00 37.22 Latanya [facility] Body weight 2020-06-12 23:39:00 97.07 kg [facility] BMI 2020-06-12 23:39:00 39.14 kg/m2 [facility] Systolic blood pressure 2020-06-13 03:40:00 122 mm[Hg] [facility] Diastolic blood pressure 2020-06-13 03:40:00 78 mm[Hg] [facility] Heart rate 2020-06-13 03:40:00 90 /min [facility] Respiratory rate 2020-06-13 03:40:00 18 /min [facility] Oxygen saturation in Arterial blood by Pulse oximetry 2020-06-13 03:40:00 94 /min [facility] Body temperature 2020-06-12 23:39:00 37.22 Latanya [facility] Body weight 2020-06-12 23:39:00 97.07 kg [facility] BMI 2020-06-12 23:39:00 39.14 kg/m2 [facility] Heart rate 2020-05-17 00:40:00 82 /min [facility] Respiratory rate 2020-05-17 00:40:00 18 /min [facility] Oxygen saturation in Arterial blood by Pulse oximetry 2020-05-17 00:40:00 95 /min [facility] Systolic blood pressure 2020-05-17 00:00:00 137 mm[Hg] [facility] Diastolic blood pressure 2020-05-17 00:00:00 93 mm[Hg] [facility] Body temperature 2020-05-16 23:17:00 37.61 Latanya [facility] Body weight 2020-05-16 23:17:00 97.07 kg [facility] BMI 2020-05-16 23:17:00 39.14 kg/m2 [facility] Heart rate 2020-05-17 00:40:00 82 /min [facility] Respiratory rate 2020-05-17 00:40:00 18 /min [facility] Oxygen saturation in Arterial blood by Pulse oximetry 2020-05-17 00:40:00 95 /min [facility] Systolic blood pressure 2020-05-17 00:00:00 137 mm[Hg] [facility] Diastolic blood pressure 2020-05-17 00:00:00 93 mm[Hg] [facility] Body temperature 2020-05-16 23:17:00 37.61 Latanya [facility] Body weight 2020-05-16 23:17:00 97.07 kg [facility] BMI 2020-05-16 23:17:00 39.14 kg/m2 [facility] Systolic blood pressure 2020-05-15 08:50:00 131 mm[Hg] [facility] Diastolic blood pressure 2020-05-15 08:50:00 80 mm[Hg] [facility] Heart rate 2020-05-15 08:50:00 70 /min [facility] Respiratory rate 2020-05-15 08:50:00 18 /min [facility] Oxygen saturation in Arterial blood by Pulse oximetry 2020-05-15 08:50:00 97 /min [facility] Body temperature 2020-05-15 05:29:00 36.44 Latanya [facility] Body height 2020-05-15 05:29:00 157.5 cm [facility] Body weight 2020-05-15 05:29:00 97.07 kg Simultaneous filing. User may not have seen previous data. [facility] BMI 2020-05-15 05:29:00 39.14 kg/m2 [facility] Systolic blood pressure 2020-05-15 08:50:00 131 mm[Hg] [facility] Diastolic blood pressure 2020-05-15 08:50:00 80 mm[Hg] [facility] Heart rate 2020-05-15 08:50:00 70 /min [facility] Respiratory rate 2020-05-15 08:50:00 18 /min [facility] Oxygen saturation in Arterial blood by Pulse oximetry 2020-05-15 08:50:00 97 /min [facility] Body temperature 2020-05-15 05:29:00 36.44 Latanya [facility] Body height 2020-05-15 05:29:00 157.5 cm [facility] Body weight 2020-05-15 05:29:00 97.07 kg Simultaneous filing. User may not have seen previous data. [facility] [facility] BMI 2020-05-15 05:29:00 39.14 kg/m2 [facility] Procedures Procedure Date / Time Performed Performing Clinician Source CT ABDOMEN PELVIS W CONTRAST 2024-10-24 03:31:17 Levar Barker [facility] LIPASE 2024-10-24 01:34:00 Levar Barker [facility] COMP. METABOLIC PANEL ([id number]) 2024-10-24 01:34:00 Levar Barker [facility] CBC WITH DIFF 2024-10-24 01:34:00 [facility] URINALYSIS 2024-10-24 01:34:00 Levar Barker [facility] TROPONIN I 2024-10-13 06:39:00 Olivia Garcia [facility] LIPASE 2024-10-13 04:20:00 Olivia Garcia [facility] TROPONIN I 2024-10-13 04:20:00 Olivia Garcia [facility] COMP. METABOLIC PANEL ([id number]) 2024-10-13 04:20:00 Olivia Garcia [facility] CBC WITH DIFF 2024-10-13 04:20:00 Olivia Garcia [facility] N-TERMINAL PRO-BNP 2024-10-13 04:20:00 Olivia Garcia [facility] POCT TEST 2024-10-13 03:46:00 Olivia Garcia [facility] URINALYSIS 2024-10-13 03:39:00 Olivia Garcia [facility] URINE DRUG (IMMUNOASSAY) - COMPREHENSIVE DRUG SCREEN 2024-07-19 06:11:00 Saleem Edward [facility] URINALYSIS 2024-07-19 06:11:00 [facility] CT CHEST PULMONARY ANGIOGRAM 2024-07-19 05:46:40 Saleem Edward [facility] MAGNESIUM 2024-07-19 05:08:00 Saleem Edward [facility] TROPONIN I 2024-07-19 05:08:00 Wganer, K Eleni [facility] COMP. METABOLIC PANEL ([id number]) 2024-07-19 05:08:00 Saleem Edward Eleni [facility] CBC WITH DIFF 2024-07-19 05:08:00 Saleem Edward [facility] INFLUENZA A/B RSV COVID NAAT 2024-07-19 05:08:00 Saleem Edward Eleni [facility] N-TERMINAL PRO-BNP 2024-07-19 05:08:00 Saleem Edward Eleni [facility] CT ABDOMEN PELVIS W CONTRAST 2024-07-04 05:47:25 Jose [facility] POCT TEST 2024-07-04 05:33:00 Ross Garcia [facility] LIPASE 2024-07-04 03:23:00 Sandy Garcia [facility] COMP. METABOLIC PANEL ([id number]) 2024-07-04 03:23:00 Jose [facility] CBC WITH DIFF 2024-07-04 03:23:00 Jose [facility] URINALYSIS 2024-07-04 03:23:00 [facility]EL[facility] W [facility]AST 2024-06-15 05:33:59 Jose [facility] URINALYSIS 2024-06-15 04:18:00 Sandy Garcia [facility] LIPASE 2024-06-15 04:14:00 Sandy Garcia [facility] TEST, SERUM 2024-06-15 04:14:00 Laney Garcia [facility] TROPONIN I 2024-06-15 04:14:00 Sandy Garcia [facility] COMP. METABOLIC PANEL ([id number]) 2024-06-15 04:14:00 Jose [facility] CBC WITH DIFF 2024-06-15 04:14:00 [facility]24-[facility]-07 07:19:00 Olivia [facility] XR CHEST 1 VW 2024-06-07 05:38:37 Olivia Garcia [facility] POCT TEST 2024-06-07 05:19:00 Olivia Garcia [facility] URINE DRUG (IMMUNOASSAY) - COMPREHENSIVE DRUG SCREEN 2024-06-07 05:18:00 Olivia Garcia [facility] TROPONIN I 2024-06-07 04:10:00 Olivia [facility] COMP. METABOLIC PANEL ([id number]) 2024-06-07 04:10:00 Olivia Garcia [facility] CBC WITH DIFF 2024-06-07 04:10:00 Olivia Garcia [facility] CT HEAD WO CONTRAST 2024-05-19 18:22:43 Annalise Wright [facility] XR ELBOW <3 VW RIGHT 2024-05-18 02:32:12 Alesha Barrera [facility] XR FOREARM 2 VW RIGHT 2024-05-18 02:32:12 Alesha Moralez [facility] XR HAND 3+ VW RIGHT 2024-05-18 02:32:12 Alesha Casanova Radha [facility] CT CERVICAL SPINE WO CONTRAST 2024-05-18 02:11:45 Alesha Roy [facility] CT MAXILLOFACIAL/MANDIBLE WO CONTRAST 2024-05-18 02:11:45 Alesha Roy [facility] POCT TEST 2024-05-08 02:00:00 Saleem Edward [facility] LIPASE 2024-05-08 00:31:00 Saleem Edward [facility] MAGNESIUM 2024-05-08 00:31:00 Saleem Edward [facility] TROPONIN I 2024-05-08 00:31:00 Saleem Edward [facility] COMP. METABOLIC PANEL ([id number]) 2024-05-08 00:31:00 Saleem Edward [facility] CBC WITH DIFF 2024-05-08 00:31:00 Saleem Edward [facility] URINALYSIS 2024-05-08 00:31:00 Saleem Edward [facility] CT ABDOMEN PELVIS WO CONTRAST 2024-04-08 23:45:15 Sophie Rojoherine [facility] POCT TEST 2024-04-08 23:01:00 Judy Rojo [facility] LIPASE 2024-04-08 22:47:00 Florentino [facility] COMP. METABOLIC PANEL ([id number]) 2024-04-08 22:47:00 Leigh Rojo [facility] CBC WITH DIFF 2024-04-08 22:47:00 Sophie [facility] URINALYSIS 2024-04-08 22:47:00 Florentino [facility] CT ABDOMEN PELVIS W CONTRAST 2023-10-11 04:08:24 Olivia Garcia [facility] POCT TEST 2023-10-11 03:40:00 Olivia Garcia [facility] LIPASE 2023-10-11 03:25:00 Olivia Garcia [facility] COMP. METABOLIC PANEL ([id number]) 2023-10-11 03:25:00 Olivia Garcia [facility] CBC WITH DIFF 2023-10-11 03:25:00 Olivia Garcia [facility] URINALYSIS 2023-10-11 03:25:00 Olivia Garcia [facility] XR KUB 2023-07-02 03:34:07 Roberto [facility] POCT TEST 2023-07-02 02:30:00 Alberta Richards [facility] LIPASE 2023-07-02 02:05:00 Roberto [facility] COMP. METABOLIC PANEL ([id number]) 2023-07-02 02:05:00 Roberto Richards [facility] CBC WITH DIFF 2023-07-02 02:05:00 Roberto Richards [facility] URINALYSIS 2023-07-02 02:05:00 Roberto [facility] URINE DRUG (IMMUNOASSAY) - COMPREHENSIVE DRUG SCREEN W/O REFLEX 2023-07-02 02:05:00 Roberto Richards [facility] CONSENT/REFUSAL FOR DIAGNOSIS AND TREATMENT 2023-07-02 01:43:05 Doctor Unassigned, [place] [facility] LIPASE 2023-05-09 22:47:00 Narayan Narvaez [facility] COMP. METABOLIC PANEL ([id number]) 2023-05-09 22:47:00 Narayan Narvaez [facility] CBC WITH DIFF 2023-05-09 22:47:00 Narayan Narvaez [facility] CONSENT/REFUSAL FOR DIAGNOSIS AND TREATMENT 2023-05-09 22:32:48 Doctor Unassigned, [place] [facility] CT ABDOMEN PELVIS W CONTRAST 2023-04-30 23:47:56 Narayan Narvaez [facility] COMP. METABOLIC PANEL ([id number]) 2023-04-30 23:08:00 Narayan Narvaez [facility] CBC WITH DIFF 2023-04-30 23:08:00 Narayan Narvae[facility] POCT TEST 2023-04-30 22:59:00 Jaquan Narvaez [facility] URINALYSIS 2023-04-30 22:57:00 Nar[facility] CONSENT/REFUSAL FOR DIAGNOSIS AND TREATMENT 2023-04-30 22:14:38 Doctor Unassigned, [place] [facility] XR ABDOMEN ACUTE SERIES 2023-04-17 02:13:44 Do minal Richards [facility] POCT TEST 2023-04-17 02:11:00 Alberta Richards [facility] LIPASE 2023-04-17 02:04:00 Roberto Richards [facility] TROPONIN I 2023-04-17 02:04:00 Roberto Richards [facility] COMP. METABOLIC PANEL ([id number]) 2023-04-17 02:04:00 Roberto Richards [facility] CBC WITH DIFF 2023-04-17 02:04:00 Roberto Richards [facility] PROTHROMBIN TIME / INR 2023-04-17 02:04:00 Jalen Richards [facility] ACTIVATED PARTIAL THRMPLAS MARCIO 2023-04-17 02:04:00 Roberto Richards [facility] URINALYSIS 2023-04-17 02:04:00 Roberto Richards [facility] N-TERMINAL PRO-BNP 2023-04-17 02:04:00 Roberto Richards [facility] URINE DRUG (IMMUNOASSAY) - COMPREHENSIVE DRUG SCREEN W/O REFLEX 2023-04-17 02:04:00 Roberto Richards [facility] CONSENT/REFUSAL FOR DIAGNOSIS AND TREATMENT 2023-04-17 01:22:36 Doctor Unassigned, [place] [facility] URINALYSIS 2023-04-09 01:02:00 Saleem Edward [facility] LIPASE 2023-04-08 23:15:00 Saleem Edward [facility] MAGNESIUM 2023-04-08 23:15:00 Saleem Edward [facility] TROPONIN I 2023-04-08 23:15:00 Sale[facility] COMP. METABOLIC PANEL ([id number]) 2023-04-08 23:15:00 Saleem Edward [facility] CBC WITH DIFF 2023-04-08 23:15:00 Saleem Edward [facility] CONSENT/REFUSAL FOR DIAGNOSIS AND TREATMENT 2023-04-08 21:57:42 Doctor Unassigned, [place] [facility] CT ABDOMEN PELVIS W CONTRAST 2023-03-10 03:38:58 Roberto Richards [facility] POCT TEST 2023-03-10 02:51:00 Alberta Richards [facility] URINALYSIS 2023-03-10 01:49:00 Roberto Richards [facility] LIPASE 2023-03-10 01:46:00 Richards, Roberto [facility] COMP. METABOLIC PANEL ([id number]) 2023-03-10 01:46:00 Roberto Richards [facility] CBC WITH DIFF 2023-03-10 01:46:00 Roberto Richards [facility] CONSENT/REFUSAL FOR DIAGNOSIS AND TREATMENT 2023-03-10 01:36:24 Doctor Unassigned, [place] [facility] CONSENT/REFUSAL FOR DIAGNOSIS AND TREATMENT 2023-03-10 01:14:40 Doctor Unassigned, [place] [facility] CT ABDOMEN PELVIS W CONTRAST 2023-03-02 05:16:35 Olivia Garcia [facility] POCT TEST 2023-03-02 03:26:00 Olivia Garcia [facility] LIPASE 2023-03-02 03:23:00 [facility] METABOLIC PANEL ([id number]) 2023-03-02 03:23:00 Olivia Garcia [facility] CBC WITH DIFF 2023-03-02 03:23:00 Olivia Garcia [facility] URINALYSIS 2023-03-02 03:23:00 Olivia Garcia [facility] CONSENT/REFUSAL FOR DIAGNOSIS AND TREATMENT 2023-03-02 00:22:44 Doctor Unassigned, [place] [facility] CONSENT/REFUSAL FOR DIAGNOSIS AND TREATMENT 2023-02-18 03:44:46 Doctor Unassigned, [place] [facility] LIPASE 2023-02-17 09:28:00 [facility] ([id number]) (ALB,T.PRO,BILI T,BU/BC,ALT,AST,ALK PHOS) 2023-02-17 09:28:00 [facility]IC PANEL (NA, K, CL, CO2, GLUCOSE, BUN, CREATININE, CA) 2023-02-17 09:28:00 [facility] DIFF 2023-02-17 09:28:00 Jes[facility]s [facility] LIPASE 2023-02-16 18:24:00 Kylah [facility] ([id number]) (ALB,T.PRO,BILI T,BU/BC,ALT,AST,ALK PHOS) 2023-02-16 18:24:00 [facility] BASIC METABOLIC PANEL (NA, K, CL, CO2, GLUCOSE, BUN, CREATININE, CA) 2023-02-16 18:24:00 [facility] CBC WITH DIFF 2023-02-16 18:23:00 Kylah Jesús [facility] CT ABDOMEN PELVIS W CONTRAST 2023-02-15 23:29:00 Leeanne Wise [facility] LIPASE 2023-02-15 21:45:00 Leeanne [facility] COMP. METABOLIC PANEL ([id number]) 2023-02-15 21:45:00 Leeanne Wise [facility] CBC WITH DIFF 2023-02-15 21:45:00 Leeanne Wise [facility] D-DIMER 2023-02-15 19:55:00 Leeanne Wise [facility] URINALYSIS 2023-02-15 19:50:00 Leeanne Wise [facility] RAPID INFLUENZA A/B 2023-02-15 19:50:00 Leeanne Wise [facility] COVID-19 (ID NOW RAPID TESTING) 2023-02-15 19:50:00 Leeanne Wise [facility] XR CHEST 1 VW 2023-02-15 19:38:00 Leeanne Wise [facility] ASSIGNMENT OF BENEFITS 2023-02-15 19:26:58 Docto r Unassigned, [place] [facility] HB ECG ROUTINE & RHYTHM STRIP 2023-02-15 19:07:40 Leeanne Wise [facility] NOTICE OF PRIVACY PRACTICES 2023-02-15 18:24:07 Doctor Unassigned, [place] [facility] CONSENT/REFUSAL FOR DIAGNOSIS AND TREATMENT 2023-02-15 18:23:04 Doctor Unassigned, [place] [facility] TROPONIN I 2022-01-10 00:32:00 [facility] TROPONIN I 2022-01-09 22:17:00 Melida Longoria [facility] BASIC METABOLIC PANEL (NA, K, CL, CO2, GLUCOSE, BUN, CREATININE, CA) 2022-01-09 22:17:00 Melida Longoria [facility] CBC WITH DIFF 2022-01-09 22:17:00 Melida Longoria [facility] N-TERMINAL PRO-BNP 2022-01-09 22:17:00 Melida Longoria [facility] XR CHEST 1 VW 2022-01-09 22:11:00 Melida Longoria [facility] CONSENT/REFUSAL FOR DIAGNOSIS AND TREATMENT 2022-01-09 21:34:15 Doctor Unassigned, [place] [facility] TROPONIN I 2021-12-14 05:39:00 Wil Mcqueen [facility] XR CHEST 1 VW 2021-12-14 04:39:00 Wil Mcqueen [facility] POCT TEST 2021-12-14 04:20:00 Wil Mcqueen [facility] URINALYSIS 2021-12-14 03:57:00 Wil Mcqueen [facility] LIPASE 2021-12-14 03:43:00 Wil Mcqueen [facility] TROPONIN I 2021-12-14 03:43:00 Wil Mcqueen [facility] FREE T4 2021-12-14 03:43:00 Wil Mcqueen [facility] THYROID STIMULATING HORMONE 2021-12-14 03:43:00 Wil Mcqueen [facility] COMP. METABOLIC PANEL ([id number]) 2021-12-14 03:43:00 Wil Mcqueen [facility] CBC WITH DIFF 2021-12-14 03:43:00 Wil Mcqueen [facility] FREE T3 2021-12-14 03:43:00 Wil Mcqueen [facility] CONSENT/REFUSAL FOR DIAGNOSIS AND TREATMENT 2021-12-14 02:58:21 Doctor Unassigned, [place] [facility] TROPONIN I 2021-11-12 03:04:00 Dee Wang U [facility] POCT TEST 2021-11-12 02:56:00 Tra Wang [facility] URINE DRUG (IMMUNOASSAY) - COMPREHENSIVE DRUG SCREEN 2021-11-12 02:30:00 Dee Wang [facility] URINALYSIS 2021-11-12 02:30:00 Dee Wang [facility] XR CHEST 2 VW 2021-11-12 01:45:03 Dee Wang [facility] LIPASE 2021-11-12 01:34:00 Dee Wang U [facility] TROPONIN I 2021-11-12 01:34:00 Dee Wang [facility] COMP. METABOLIC PANEL ([id number]) 2021-11-12 01:34:00 Dee Wang [facility] CBC WITH DIFF 2021-11-12 01:34:00 Dee Wang [facility] N-TERMINAL PRO-BNP 2021-11-12 01:34:00 Mckinley Wang [facility] CONSENT/REFUSAL FOR DIAGNOSIS AND TREATMENT 2021-11-12 00:36:34 Doctor Unassigned, [place] [facility] CT ABDOMEN PELVIS W CONTRAST 2021-09-12 02:49:43 Dee Wang [facility] COVID-19 (ID NOW RAPID TESTING) 2021-09-12 02:23:00 Dee Wang [facility] POCT TEST 2021-09-12 02:21:00 Tra Wang [facility] POCT TEST 2021-09-12 01:45:00 Olivia Garcia [facility] URINALYSIS 2021-09-12 01:43:00 Olivia Garcia [facility] LIPASE 2021-09-12 01:40:00 Olivia Garcia [facility] COMP. METABOLIC PANEL ([id number]) 2021-09-12 01:40:00 Olivia Garcia [facility] CBC WITH DIFF 2021-09-12 01:40:00 Olivia Garcia [facility] CONSENT/REFUSAL FOR DIAGNOSIS AND TREATMENT 2021-09-12 01:26:55 Doctor Unassigned, [place] [facility] XR LUMBAR SPINE 1 VW 2021-08-15 07:03:00 Angeles Garcia i [facility] URINALYSIS 2021-08-15 06:35:00 Olivia Garcia [facility] POCT TEST 2021-08-15 06:35:00 Olivia Garcia [facility] NOTICE OF PRIVACY PRACTICES 2021-08-15 06:01:56 Doctor Unassigned, [place] [facility] CONSENT/REFUSAL FOR DIAGNOSIS AND TREATMENT 2021-08-15 05:25:54 Doctor Unassigned, [place] [facility] TROPONIN I 2021-05-28 07:50:00 Cem Choi [facility] D-DIMER 2021-05-28 07:05:00 Cem Choi [facility] XR CHEST 2 VW 2021-05-28 05:46:00 Cem Choi [facility] POCT TEST 2021-05-28 05:32:00 Cem Choi [facility] LIPASE 2021-05-28 05:29:00 Cem Choi [facility] TROPONIN I 2021-05-28 05:29:00 Cem Choi [facility] COMP. METABOLIC PANEL ([id number]) 2021-05-28 05:29:00 Cem Choi [facility] CBC WITH DIFF 2021-05-28 05:29:00 Cem Choi [facility] N-TERMINAL PRO-BNP 2021-05-28 05:29:00 AntonCem majano [facility] COVID-19 (ID NOW RAPID TESTING) 2021-05-28 05:29:00 Cem Choi [facility] TROPONIN I 2021-04-08 10:01:00 Brittni Page [facility] BASIC METABOLIC PANEL (NA, K, CL, CO2, GLUCOSE, BUN, CREATININE, CA) 2021-04-08 10:01:00 Brittni Page [facility] CBC WITH DIFF 2021-04-08 10:01:00 Brittni Page [facility] TROPONIN I 2021-04-08 04:12:00 Brittni Page [facility] XR CHEST 1 VW 2021-04-07 22:33:33 Roberto Richards [facility] LIPASE 2021-04-07 21:52:00 Roberto Richards [facility] MAGNESIUM 2021-04-07 21:52:00 Brittni Page [facility] TROPONIN I 2021-04-07 21:52:00 Roberto Richards [facility] THYROID STIMULATING HORMONE 2021-04-07 21:52:00 Brittni Page [facility] COMP. METABOLIC PANEL ([id number]) 2021-04-07 21:52:00 Roberto Richards [facility] LIPID PANEL ([id number])(TOTAL CHOLESTEROL, TRIGLYCERIDES, HDL) 2021-04-07 21:52:00 Britnti Page [facility] CBC WITH DIFF 2021-04-07 21:52:00 Roberto [facility] GLYCOSYLATED HEMOGLOBIN (A1C) 2021-04-07 21:52:00 Nick Brittni [facility] PROTHROMBIN TIME / INR 2021-04-07 21:52:00 Jalen Richards [facility] ACTIVATED PARTIAL THRMPLAS MARCIO 2021-04-07 21:52:00 Roberto Richards [facility] N-TERMINAL PRO-BNP 2021-04-07 21:52:00 Roberto Richards [facility] COVID-19 (ID NOW RAPID TESTING) 2021-04-07 21:51:00 Roberto Richards [facility] HB ECG ROUTINE & RHYTHM STRIP 2021-04-07 21:38:41 Maurice [facility] CONSENT/REFUSAL FOR DIAGNOSIS AND TREATMENT 2021-04-07 21:17:47 Doctor Unassigned, [place] [facility] CT ABDOMEN PELVIS WO CONTRAST 2021-01-12 08:10:17 Narayan Narvaez [facility] POCT TEST 2021-01-12 08:02:00 Jaquan Narvaez [facility] URINALYSIS 2021-01-12 07:58:00 Singer [facility] COMP. METABOLIC PANEL ([id number]) 2021-01-12 07:56:00 Singer [facility] CBC WITH DIFF 2021-01-12 07:56:00 Singer [facility] TROPONIN I 2020-12-11 00:47[facility]00 [facility] 2020-12-10 22:40:57 Bal Hassan [facility] POCT TEST 2020-12-10 22:32:00 Suzanna Hassan [facility] URINALYSIS 2020-12-10 22:30:00 [facility] LIPASE 2020-12-10 22:24[facility]00 [facility] 2020-12-10 22:24:00 [facility] HEPATIC FUNCTION PANEL ([id number]) (ALB,T.PRO,BILI T,BU/BC,ALT,AST,ALK PHOS) 2020-12-10 22:24:00 Mo [facility] BASIC METABOLIC PANEL (NA, K, CL, CO2, GLUCOSE, BUN, CREATININE, CA) 2020-12-10 22:24:00 [facility] DIFF 2020-12-10 22:24:00 Hassan, Bal [facility] D-DIMER 2020-12-10 22:24:00 Bal Hassan [facility] N-TERMINAL PRO-BNP 2020-12-10 22:24:00 Mirtha Hassan [facility] POCT TEST 2020-12-04 21:18:00 Tremaine Becerra [facility] URINALYSIS 2020-12-04 21:17:00 [facility] 2020-12-04 20:20:00 Hernan [facility] TROPONIN I 2020-12-04 20:20:00 Hernan [facility] HEPATIC FUNCTION PANEL ([id number]) (ALB,T.PRO,BILI T,BU/BC,ALT,AST,ALK PHOS) 2020-12-04 20:20:00 [facility]OLIC PANEL (NA, K, CL, CO2, GLUCOSE, BUN, CREATININE, CA) 2020-12-04 20:20:00 Hernan [facility] CBC WITH DIFF 2020-12-04 20:20:00 Tremaine Becerra [facility] XR CHEST 1 VW 2020-12-04 20:16:54 Tremaine Becerra [facility] XR ANKLE 3+ VW LEFT 2020-12-04 20:16:54 Tremaine Becerra [facility] CONSENT/REFUSAL FOR DIAGNOSIS AND TREATMENT 2020-12-04 19:43:45 Doctor Unassigned, [place] [facility] XR CHEST 1 VW 2020-11-04 02:24:02 Olivia Garcia [facility] URINE DRUG (IMMUNOASSAY) - 4 ER PANEL 2020-11-04 02:19:00 Olivia Garcia [facility] URINALYSIS 2020-11-04 02:19:00 Olivia Garcia [facility] LIPASE 2020-11-04 02:16:00 Olivia Garcia [facility] TROPONIN I 2020-11-04 02:16:00 Olivia Garcia [facility] COMP. METABOLIC PANEL ([id number]) 2020-11-04 02:16:00 Olivia Garcia [facility] CBC WITH DIFF 2020-11-04 02:16:00 Olivia Garcia [facility] PROTHROMBIN TIME / INR 2020-11-04 02:16:00 Lucia Garcia [facility] ACTIVATED PARTIAL THRMPLAS MARCIO 2020-11-04 02:16:00 Olivia Garcia [facility] CONSENT/REFUSAL FOR DIAGNOSIS AND TREATMENT 2020-11-04 01:11:16 Doctor Unassigned, [place] [facility] XR CHEST 1 VW 2020-09-17 17:32:21 Leeanne Wise [facility] RAPID STREP SCREEN FOR GROUP A 2020-09-17 16:31:00 Leeanne Wise [facility] COVID-19 (ID NOW RAPID TESTING) 2020-09-17 16:31:00 Leeanne Wise [facility] NOTICE OF PRIVACY PRACTICES 2020-09-17 15:47:38 Doctor Unassigned, [place] [facility] CONSENT/REFUSAL FOR DIAGNOSIS AND TREATMENT 2020-09-17 15:47:07 Doctor Unassigned, [place] [facility] XR FOREARM 2 VW LEFT 2020-09-07 06:59:53 Saleem Edward [facility] XR HAND 3+ VW LEFT 2020-09-07 06:59:53 Saleem Edward [facility] NOTICE OF PRIVACY PRACTICES 2020-09-07 06:06:09 Doctor Unassigned, [place] [facility] CONSENT/REFUSAL FOR DIAGNOSIS AND TREATMENT 2020-09-07 06:03:10 Doctor Unassigned, [place] [facility] CT ABDOMEN PELVIS W CONTRAST 2020-08-28 09:16:08 Olivia Garcia [facility] POCT TEST 2020-08-28 08:45:00 Olivia Garcia [facility] URINALYSIS 2020-08-28 08:43:00 [facility] 2020-08-28 08:09:00 Olivia Garcia [facility] COMP. METABOLIC PANEL ([id number]) 2020-08-28 08:09:00 Olivia Garcia [facility] CBC WITH DIFF 2020-08-28 08:09:00 [facility] 2020-08-14 18:10:03 Best Taylor [facility] LIPASE 2020-08-14 17:58:00 [facility] TROPONIN I 2020-08-14 17:58:00 Best Taylor [facility] COMP. METABOLIC PANEL ([id number]) 2020-08-14 17:58:00 Best Taylor [facility] CBC WITH DIFF 2020-08-14 17:58:00 Best Taylor [facility] URINALYSIS 2020-08-14 17:58:00 Best Taylor [facility] LACTIC ACID WHOLE BLOOD 2020-08-14 17:58:00 Sophie Taylor [facility] ADC / LCC - DRUG SCREEN TRIAGE 2020-08-14 17:58:00 Best Taylor [facility] CONSENT/REFUSAL FOR DIAGNOSIS AND TREATMENT 2020-08-14 17:33:16 Doctor Unassigned, [place] [facility] CT ABDOMEN PELVIS WO CONTRAST 2020-08-11 04:11:07 Best Taylor [facility] XR CHEST 1 VW 2020-08-11 03:56:48 Best Taylor [facility] POCT TEST 2020-08-11 03:10:00 Best Taylor [facility] BLOOD CULTURE SCREEN 2020-08-11 02:01:00 Best Taylor [facility] BLOOD CULTURE SCREEN 2020-08-11 01:45:00 Best Taylor [facility] LIPASE 2020-08-11 01:45:00 Best Taylor [facility] TROPONIN I 2020-08-11 01:45:00 Best Taylor [facility] HEPATIC FUNCTION PANEL (80356) (ALB,T.PRO,BILI T,BU/BC,ALT,AST,ALK PHOS) 2020-08-11 01:45:00 Best Taylor [facility] BASIC METABOLIC PANEL (NA, K, CL, CO2, GLUCOSE, BUN, CREATININE, CA) 2020-08-11 01:45:00 Best Taylor [facility] CBC WITH DIFF 2020-08-11 01:45:00 Best Taylor [facility] URINALYSIS 2020-08-11 01:45:00 Best Taylor [facility] LACTIC ACID WHOLE BLOOD 2020-08-11 01:45:00 Sophie Taylor [facility] COVID-19 (ID NOW RAPID TESTING) 2020-08-11 01:45:00 Best Taylor [facility] CONSENT/REFUSAL FOR DIAGNOSIS AND TREATMENT 2020-08-11 00:12:54 Doctor Unassigned, [place] [facility] XR FOREARM 2 VW LEFT 2020-08-07 14:03:06 Unique Richards [facility] COVID-19 (ID NOW RAPID TESTING) 2020-08-07 13:35:00 Roberto Richards [facility] NOTICE OF PRIVACY PRACTICES 2020-08-07 13:13:25 Doctor Unassigned, [place] [facility] CONSENT/REFUSAL FOR DIAGNOSIS AND TREATMENT 2020-08-07 13:11:06 Doctor Unassigned, [place] [facility] CONSENT/REFUSAL FOR DIAGNOSIS AND TREATMENT 2020-08-07 13:10:57 Doctor Unassigned, [place] [facility] TROPONIN I 2020-07-01 02:03:00 Abdias Robertson [facility] POCT TEST 2020-07-01 00:51:00 Abdias Robertson [facility] URINALYSIS 2020-07-01 00:48:00 Abdias Robertson [facility] CBC WITH DIFF 2020-07-01 00:12:00 [facility] EXTRA TUBE LT. BLUE 2020-07-01 00:12:00 Abdias Robertson [facility] LIPASE 2020-07-01 00:09:00 Abdias Robertson [facility] TROPONIN I 2020-07-01 00:09:00 Abdias Robertson [facility] BASIC METABOLIC PANEL (NA, K, CL, CO2, GLUCOSE, BUN, CREATININE, CA) 2020-07-01 00:09:00 Abdias Robertson [facility] ADC,CLC OR LCC ONLY - INFLUENZA A & B DIRECT ANTIGEN 2020-07-01 00:09:00 Jessica [facility] N-TERMINAL PRO-BNP 2020-07-01 00:09:00 Abdias Robertson [facility] XR CHEST 1 VW 2020-07-01 00:07:07 Abdias [facility] NOTICE OF PRIVACY PRACTICES 2020-06-30 23:27:46 Doctor Unassigned, [place] [facility] CT CERVICAL SPINE WO CONTRAST 2020-06-28 23:12:00 Narayan Narvaez [facility] CONSENT/REFUSAL FOR DIAGNOSIS AND TREATMENT 2020-06-28 21:52:44 Doctor Unassigned, [place] [facility] POCT TEST 2020-06-13 01:50:00 Leeanne Wise [facility] XR CHEST 1 VW 2020-06-13 01:18:17 Leeanne Wise [facility] URINALYSIS 2020-06-13 00:34:00 Leeanne Wise [facility] COVID-19 (ID NOW RAPID TESTING) 2020-06-13 00:34:00 Leeanne Wise [facility] LIPASE 2020-06-13 00:33:00 Leeanne Wise [facility] TROPONIN I 2020-06-13 00:33:00 Leeanne Wise [facility] HEPATIC FUNCTION PANEL (90745) (ALB,T.PRO,BILI T,BU/BC,ALT,AST,ALK PHOS) 2020-06-13 00:33:00 Leeanne Wise [facility] BASIC METABOLIC PANEL (NA, K, CL, CO2, GLUCOSE, BUN, CREATININE, CA) 2020-06-13 00:33:00 Leeanne Wise [facility] CBC WITH DIFF 2020-06-13 00:33:00 Leeanne Wise [facility] D-DIMER 2020-06-13 00:33:00 Leeanne Wise [facility] CONSENT/REFUSAL FOR DIAGNOSIS AND TREATMENT 2020-06-12 23:27:48 Doctor Unassigned, [place] [facility] COVID-19 (ID NOW RAPID TESTING) 2020-05-16 23:50:00 Bushra Rios [facility] LIPASE 2020-05-16 23:21:00 Bushra Rios [facility] HEPATIC FUNCTION PANEL (39332) (ALB,T.PRO,BILI T,BU/BC,ALT,AST,ALK PHOS) 2020-05-16 23:21:00 Bushra Rios [facility] BASIC METABOLIC PANEL (NA, K, CL, CO2, GLUCOSE, BUN, CREATININE, CA) 2020-05-16 23:21:00 Bushra Rios [facility] CBC WITH DIFF 2020-05-16 23:21:00 [facility] 2020-05-15 07:42:00 Roberto [facility] CT ABDOMEN PELVIS W CONTRAST 2020-05-15 06:56:53 Roberto Richards [facility] CT HEAD WO CONTRAST 2020-05-15 06:56:27 Alberta Richards [facility] POCT TEST 2020-05-15 05:53:00 Alberta Richards [facility] LIPASE 2020-05-15 05:52:00 Roberto Richards [facility] HEPATIC FUNCTION PANEL ([id number]) (ALB,T.PRO,BILI T,BU/BC,ALT,AST,ALK PHOS) 2020-05-15 05:52:00 Roberto Richards [facility] BASIC METABOLIC PANEL (NA, K, CL, CO2, GLUCOSE, BUN, CREATININE, CA) 2020-05-15 05:52:00 Roberto Richards [facility] ETHANOL 2020-05-15 05:52:00 Roberto Richards [facility] CBC WITH DIFF 2020-05-15 05:52:00 oRberto Richards [facility] PROTHROMBIN TIME / INR 2020-05-15 05:52:00 Jalen Richards [facility] ACTIVATED PARTIAL THRMPLAS MARCIO 2020-05-15 05:52:00 Roberto Richards [facility] URINALYSIS 2020-05-15 05:52:00 Roberto [facility] ADC / LCC - DRUG SCREEN TRIAGE 2020-05-15 05:52:00 Roberto Richards [facility] NOTICE OF PRIVACY PRACTICES 2020-05-15 05:12:38 Doctor Unassigned, [place] [facility] CONSENT/REFUSAL FOR DIAGNOSIS AND TREATMENT 2020-05-15 05:12:26 Doctor Unassigned, [place] [facility] Encounters Start Date/Time End Date/Time Encounter Type Admission Type Attending [facility] Care Facility Care Department Encounter ID Source 2025-02-15 10:00:00 2025-02-15 10:00:00 Outpatient CHRISTINA PAGE [id number] [facility] 2025-01-22 10:20:00 2025-01-22 10:20:00 Outpatient CYNTHIA ROMEO [id number] [facility] 2024-12-02 13:30:00 2024-12-02 13:30:00 Outpatient JOANNE MONTES [id number] [facility] 2024-12-02 09:30:00 2024-12-02 09:30:00 Outpatient CATHY STRICKLAND [id number] [facility] 2024-11-18 13:15:00 2024-11-18 13:15:00 Outpatient TYLER MAN [id number] [facility] 2024-11-10 13:30:2024-11-10 13:30:00 Outpatient JOANNE MONTES KELLEE [id number] [facility] 2024-11-10 13:30:00 2024-11-10 13:30:00 Outpatient JOANNE MONTES KELLEE [id number] [facility] 2024-10-28 14:15:00 2024-10-28 14:15:00 Outpatient TYLER MAN KELLEE DORMAN [id number] [facility] 2024-10-26 11:30:00 2024-10-26 11:30:00 Outpatient FLORINDA REYES KELLEE KELLEE [id number] [facility] 2024-10-23 20:18:00 2024-10-23 23:54:00 Emergency X LEVAR BARKER BRENT [facility] [id number] [facility] 2024-10-23 20:18:00 2024-10-23 23:54:00 Emergency Levar Barker [facility] 1.2.840.114 350.1.13.10 4.2.7.2.686 [id number] [facility] 2024-10-23 10:30:00 2024-10-23 10:30:00 Outpatient JOANNE MONTES KELLEE [id number] [facility] 2024-10-19 00:00:00 2024-10-19 00:00:00 Outpatient JOANNE MONTES KELLEE DORMAN [id number] [facility] 2024-10-14 00:00:00 2024-10-14 00:00:00 Outpatient KELLEE DORMAN [id number] [facility] 2024-10-12 22:30:00 2024-10-13 02:45:00 Emergency X OLIVIA GARCIA WAKILI [facility] ERT [id number] [facility] 2024-10-12 22:30:00 2024-10-13 02:45:00 Emergency Olivia Garcia [facility] .2.840.114 350.1.13.10 4.2.7.2.686 [id number] [facility] 2024-09-23 13:30:00 2024-09-23 13:30:00 Outpatient GISELLE OSORIO [id number] [facility] 2024-09-23 00:00:00 2024-09-23 00:00:00 Outpatient KELLEE DORMAN [id number] [facility] 2024-09-17 00:00:00 2024-09-17 00:00:00 Outpatient MD KELLEE CHOI [id number] [facility] 2024-09-15 11:15:00 2024-09-15 11:15:00 Outpatient KELLEE DORMAN [id number] [facility] 2024-09-15 10:45:00 2024-09-15 10:45:00 Outpatient KELLEE DORMAN [id number] [facility] 2024-09-15 10:15:00 2024-09-15 10:15:00 Outpatient KELLEE DORMAN [id number] [facility] 2024-09-15 07:30:00 2024-09-15 07:30:00 Outpatient KELLEE DORMAN [id number] [facility] 2024-09-15 00:00:00 2024-09-15 00:00:00 Outpatient GISELLE OSORIO [id number] [facility] 2024-09-06 00:00:00 2024-09-06 00:00:00 Outpatient JOANNE MONTES [id number] [facility] 2024-09-01 00:00:00 2024-09-01 00:00:00 Outpatient JOANNE MONTES [id number] [facility] 2024-08-27 00:00:00 2024-08-27 00:00:00 Outpatient CONRADO SMITH [id number] [facility] 2024-08-20 16:45:00 2024-08-20 16:45:00 Outpatient JÚNIOR FARRELL [id number] [facility] 2024-08-18 10:00:00 2024-08-18 10:00:00 Outpatient JYOTI JOANNE KELLEE DORMAN [id number] [facility] 2024-08-05 15:30:00 2024-08-05 15:30:00 Outpatient SMITH CONRADO KELLEE DORMAN [id number] [facility] 2024-08-03 00:00:00 2024-08-03 00:00:00 Outpatient JYOTI JOANNE KELLEE DORMAN [id number] [facility] 2024-07-18 22:48:00 2024-07-19 01:24:00 Emergency X Saleem EDWARD K [facility] ERT [id number] [facility] 2024-07-18 22:48:00 2024-07-19 01:24:00 Emergency Saleem Edward [facility] 1.2.840.114 350.1.13.10 4.2.7.2.686 [id number] [facility] 2024-07-15 00:00:00 2024-07-15 00:00:00 Outpatient JYOTI JOANNE DORMAN [id number] [facility] 2024-07-10 00:00:00 2024-07-10 00:00:00 Outpatient JYOTI JOANNE DORMAN [id number] [facility] 2024-07-09 00:00:00 2024-07-09 00:00:00 Outpatient RADIOLOGY, DEPTrice DORMAN [id number] [facility] 2024-07-09 00:00:00 2024-07-09 00:00:00 Outpatient RADIOLOGY, DEPTrice [facility]OR[facility] [id number] [facility]-07 00:00:00 2024-07-07 00:00:00 Outpatient MD KELLEE CHOI [id number] [facility] 2024-07-06 07:00:00 2024-07-06 07:00:00 Outpatient [facility]E DORMAN [id number] [facility]24-07-06 00:00:00 2024-07-06 00:00:00 Outpatient GISELLE OSORIO [id number] [facility] 2024-07-03 19:56:00 2024-07-04 01:32:00 Emergency X VINCTARIQ, SHINTA VINCENT, SHINTA [facility] ERT [id number] [facility] 2024-07-03 19:56:00 2024-07-04 01:32:00 Emergency Vincent, Shinta [facility] 1..840.114 350.1.13.10 4.2.7.2.686 [id number] [facility] 2024-06-21 02:04:00 2024-06-21 02:59:00 Emergency X VINCENT, SHINTA VINCENT, SHINTA [facility] ERT [id number] [facility] 2024-06-21 02:04:00 2024-06-21 02:59:00 Emergency Vincent, Shinta [facility] ..840.114 350.1.13.10 4.2.7.2.686 [id number] [facility] 2024-06-20 00:00:00 2024-06-20 00:00:00 Outpatient JOANNE MONTES [id number] [facility] 2024-06-18 00:00:00 2024-06-18 00:00:00 Outpatient GISELLE OSORIO [id number] [facility] 2024-06-17 15:30:00 2024-06-17 15:30:00 Outpatient KELLEE DORMAN [id number] [facility] 2024-06-14 21:28:00 2024-06-15 00:28:00 Emergency X VINCENT, SHINTA VINCTARIQ, SHINTA [facility] ERT [id number] [facility] 2024-06-14 21:28:00 2024-06-15 00:28:00 Emergency Vincent, Shinta [facility] ..840.114 350.1.13.10 4.2.7.2.686 [id number] [facility] 2024-06-06 21:56:00 2024-06-07 02:40:00 Emergency X OLIVIA GARCIA WAKILI [facility] ERT [id number] [facility] 2024-06-06 21:56:00 2024-06-07 02:40:00 Emergency Olivia Garcia [facility] 1.2.840.114 350.1.13.10 4.2.7.2.686 [id number] [facility] 2024-06-02 00:00:00 2024-06-02 00:00:00 Outpatient JOANNE MONTES [id number] [facility] 2024-05-28 13:00:00 2024-05-28 13:00:00 Outpatient GISELLE OSORIO [id number] [facility] 2024-05-20 00:00:00 2024-05-20 00:00:00 Outpatient JOANNE MONTES [id number] [facility] 2024-05-19 11:44:00 2024-05-19 13:35:00 Emergency X ANNALISE WRIGHT [facility] [id number] [facility] 2024-05-19 11:44:00 2024-05-19 13:35:00 Emergency Annalise Wright [facility] 1.2.840.114 350.1.13.10 4.2.7.2.686 [id number] [facility] 2024-05-18 11:15:00 2024-05-18 11:15:00 Outpatient LABGerman DORMAN [id number] [facility] 2024-05-18 10:30:00 2024-05-18 10:30:00 Outpatient JOANNE MONTES [id number] [facility] 2024-05-17 18:30:00 2024-05-17 22:19:00 Emergency KarelymileyAlesha veliz [facility] 1.2.840.114 350.1.13.10 4.2.7.2.686 [id number] [facility] 2024-05-13 18:04:00 2024-05-13 20:42:00 Emergency ER CHACE KERNEN [facility] [id number] [facility] 2024-05-12 00:00:00 2024-05-12 00:00:00 Outpatient JOANNE MONTES [id number] [facility] 2024-05-07 18:47:00 2024-05-07 21:36:00 Emergency Wagner Saleem Knowles [facility] 1.2.840.114 350.1.13.10 4.2.7.2.686 [id number] [facility] 2024-04-22 09:15:00 2024-04-22 09:15:00 Outpatient FARTUN GILLESPIE [id number] [facility] 2024-04-15 10:30:00 2024-04-15 10:30:00 Outpatient JOANNE MONTES [id number] [facility] 2024-04-12 00:00:00 2024-04-12 00:00:00 Outpatient JOANNE MONTES [id number] [facility] 2024-04-10 16:20:00 2024-04-10 18:53:00 Emergency ER TAVARES MG JR [facility] [id number] [facility] 2024-04-10 16:20:00 2024-04-10 18:53:00 Departed Emergency Room [facility] [id number] [facility] 2024-04-08 17:37:00 2024-04-08 20:38:00 Emergency Florentino, Leigh [facility] 1.2.840.114 350.1.13.10 4.2.7.2.686 [id number] [facility] 2024-04-08 00:00:00 2024-04-08 00:00:00 Outpatient HUNDL, JOANNE DORMAN [id number] [facility] 2024-03-12 00:00:00 2024-03-12 00:00:00 Outpatient HUNDL, JOANNE DORMAN [id number] [facility] 2024-03-06 11:00:00 2024-03-06 11:00:00 Outpatient HUNDL, JOANNE DORMAN [id number] [facility] 2024-02-06 11:00:00 2024-02-06 11:00:00 Outpatient JO, GISELLE DORMAN [id number] [facility] 2024-02-06 10:40:00 2024-02-06 10:40:00 Outpatient KELLEE DORMAN [id number] [facility] 2024-02-06 00:00:00 2024-02-06 00:00:00 Outpatient HUNDL, JOANNE DORMAN [id number] [facility] 2024-02-05 00:00:00 2024-02-05 00:00:00 Outpatient HUNDL, JOANNE DORMAN [id number] [facility] 2024-01-14 09:30:00 2024-01-14 09:30:00 Outpatient HUNDL, JOANNE DORMAN [id number] [facility] 2024-01-09 00:00:00 2024-01-09 00:00:00 Outpatient HUNDL, JOANNE DORMAN [id number] [facility] 2024-01-06 00:00:00 2024-01-06 00:00:00 Outpatient HUNDL, JOANNE DORMAN [id number] [facility] 2024-01-03 00:00:00 2024-01-03 00:00:00 Outpatient HUNDL, JOANNE DORMAN [id number] [facility] 2024-01-02 14:00:00 2024-01-02 14:00:00 Outpatient JOANNE MONTES KELLEE DORMAN [id number] [facility] 2023-12-13 09:30:00 2023-12-13 09:30:00 Outpatient JOANNE MONTES KELLEE DORMAN [id number] [facility] 2023-12-09 00:00:00 2023-12-09 00:00:00 Outpatient JOANNE MONTES KELLEE DORMAN [id number] [facility] 2023-12-05 00:00:00 2023-12-05 00:00:00 Outpatient ZACHARY MONTESSharlene DORMAN [id number] [facility] 2023-12-03 11:45:00 2023-12-03 11:45:00 Outpatient LAB90 KELLEE DORMAN [id number] [facility] 2023-12-03 11:00:00 2023-12-03 11:00:00 Outpatient JOANNE MONTES KELLEE DORMAN [id number] [facility] 2023-11-26 00:00:00 2023-11-26 00:00:00 Outpatient JYOTI JOANNE DORMAN [id number] [facility] 2023-10-31 00:00:00 2023-10-31 00:00:00 Outpatient COSMO KELLEE DORMAN [id number] [facility] 2023-10-31 00:00:00 2023-10-31 00:00:00 Outpatient GIDmitriALEXIA KELLEE DORMAN [id number] [facility] 2023-10-29 14:15:00 2023-10-29 14:15:00 Outpatient LAB90 KELLEE DORMAN [id number] [facility] 2023-10-29 13:30:00 2023-10-29 13:30:00 Outpatient JYOTI JOANNE KELLEE DORMAN [id number] [facility] 2023-10-10 21:31:00 2023-10-11 00:43:00 Emergency X OLIVIA GARCIA [facility] [id number] [facility] 2023-10-10 21:31:00 2023-10-11 00:43:00 Emergency Olivia Garcia [facility] 1.2.840.114 350.1.13.10 4.2.7.2.686 [id number] [facility] 2023-08-31 18:02:00 2023-08-31 22:40:00 Emergency ER SHERIDAN MCMANUS [facility] [id number] [facility] 2023-08-31 18:02:00 2023-08-31 22:40:00 emergency [facility] [id number] 2023-07-01 19:50:00 2023-07-01 22:59:00 Emergency X ROBERTO RICHARDS [facility] [id number] [facility] 2023-07-01 19:50:00 2023-07-01 22:59:00 Emergency Roberto Richards [facility] 1.2.840.114 350.1.13.10 4.2.7.2.686 [id number] [facility] 2023-06-04 23:37:00 2023-06-06 13:30:00 Inpatient ER SHAN BUSCH [facility] [id number] [facility] 2023-06-04 23:37:00 2023-06-06 13:30:00 observatio n encounter [facility] [id number] 2023-05-11 01:16:00 2023-05-13 17:04:00 Inpatient ER RIDDHI MYLES [facility] [id number] [facility] 2023-05-11 01:16:00 2023-05-13 17:04:00 observatio n encounter [facility] [id number] [facility] [id number] 2023-05-10 21:48:00 2023-05-10 21:48:00 Emergency ER AN IRIZARRY [facility] [id number] [facility] 2023-05-09 17:40:00 2023-05-09 20:30:00 Emergency NARAYAN MATA [facility] [id number] [facility] 2023-05-09 17:40:00 2023-05-09 20:30:00 Emergency Narayan Narvaez [facility] 1.2.840.114 350.1.13.10 4.2.7.2.686 [id number] [facility] 2023-05-05 21:31:00 2023-05-06 03:15:00 Emergency ER SHERIDAN MCMANUS [facility] [id number] [facility] 2023-05-05 21:31:00 2023-05-06 03:15:00 emergency [facility] [id number] 2023-04-30 17:18:00 2023-04-30 21:20:00 Emergency NARAYAN MATA [facility] [id number] [facility] 2023-04-30 17:18:00 2023-04-30 21:20:00 Emergency Narayan Narvaez [facility] 1.2.840.114 350.1.13.10 4.2.7.2.686 [id number] [facility] 2023-04-16 20:40:00 2023-04-16 23:10:00 Emergency Sveta RICHARDS ROBERTO [facility] [id number] [facility] 2023-04-16 20:40:00 2023-04-16 23:10:00 Emergency Roberto Richards [facility] 1.2.840.114 350.1.13.10 4.2.7.2.686 [id number] [facility] 2023-04-08 17:28:00 2023-04-08 21:20:00 Emergency X Saleem EDWARD [facility] ERT [id number] [facility] 2023-04-08 17:28:00 2023-04-08 21:20:00 [facility] 1.2.840.114 350.1.13.10 4.2.7.2.686 [id number] [facility] 2023-03-09 20:23:00 2023-03-10 00:20:00 Emergency X ROBERTO RICHARDS [facility] E[facility] [id number] [facility] 2023-03-09 20:23:00 2023-03-10 00:20:00 [facility] 1.2.840.114 350.1.13.10 4.2.7.2.686 [id number] [facility] 2023-03-01 19:35:00 2023-03-02 01:35:00 Emergency X OLIVIA GARCIA [facility] E[facility] [id number] [facility] 2023-03-01 19:35:00 2023-03-02 01:35:00 Emergency Olivia Garcia [facility] 1.2.840.114 350.1.13.10 4.2.7.2.686 [id number] [facility] 2023-02-17 22:58:00 2023-02-18 02:22:00 Emergency X BRITTNI PADGETT [facility] E[facility] [id number] [facility] 2023-02-17 22:58:00 2023-02-18 02:22:00 Emergency Brittni Padgett Raad [facility] 1.2.840.114 350.1.13.10 4.2.7.2.686 [id number] [facility] 2023-02-15 13:46:00 2023-02-17 16:14:00 Outpatient X JESÚS MONTERO [facility] ALTHEA [id number] [facility] 2023-02-15 13:46:00 2023-02-17 16:14:00 Emergency Leeanne Wise Jelani [facility] 1.2.840.114 350.1.13.10 4.2.7.2.686 [id number] [facility] 2022-01-17 10:48:00 2022-01-17 10:48:00 Outpatient FERGUSON_JO HN [facility] [id number] [facility] 2022-01-09 16:47:00 2022-01-09 20:28:00 Emergency X MELIDA LONGORIA [facility] ERT [id number] [facility] 2022-01-09 16:47:00 2022-01-09 20:28:00 Emergency Melida Longoria [facility] 1.2.840.114 350.1.13.10 4.2.7.2.686 [id number] [facility] 2021-12-13 22:16:00 2021-12-14 02:28:00 Emergency X WIL MCQUEEN [facility] ERT [id number] [facility] 2021-12-13 22:16:00 2021-12-14 02:28:00 Emergency Wil Mcqueen [facility] 1.2.840.114 350.1.13.10 4.2.7.2.686 [id number] [facility] 2021-11-11 19:50:00 2021-11-11 23:17:00 Emergency X DEE WANG [facility] ERT [id number] [facility] 2021-11-11 19:50:00 2021-11-11 23:17:00 Emergency Dee aWng [facility] 1.2.840.114 350.1.13.10 4.2.7.2.686 [id number] [facility] 2021-11-11 00:00:00 2021-11-11 00:00:00 Orders Only Doctor Unassigned, [place] [facility] 1.2.840.114 350.1.13.10 4.2.7.2.686 [id number] [facility] 2021-09-11 19:42:00 2021-09-11 23:02:00 [facility] [id number] [facility] 2021-09-11 19:42:00 2021-09-11 23:02:00 Emergency Dee Wang [facility] 1.2.840.114 350.1.13.10 4.2.7.2.686 [id number] [facility] 2021-08-14 23:38:00 2021-08-15 02:29:00 Emergency X OLIVIA GARCIA [facility] ERT [id number] [facility] 2021-08-14 23:38:00 2021-08-15 02:29:00 Emergency Olivia Garcia [facility] 1.2.840.114 350.1.13.10 4.2.7.2.686 [id number] [facility] [facility] 2021-05-27 23:23:00 2021-05-28 04:23:00 Emergency X FARHANA CHOIITH [facility] ERT [id number] [facility] 2021-05-27 23:23:00 2021-05-28 04:23:00 Emergency Cem Choi [facility] 1.2.840.114 350.1.13.10 4.2.7.2.686 [id number] 084 [id number] [facility] 2021-04-10 00:00:00 2021-04-10 00:00:00 Transition of Care Shelley Rosas 1.2.840.114 350.1.13.10 4.2.7.2.686 [id number] [facility] 2021-04-07 16:30:00 2021-04-08 17:45:00 Hospital Encounter Roberto Richards Jelani [facility] 1.2.840.114 350.1.13.10 4.2.7.2.686 [id number] [id number] [facility] 2021-04-07 16:18:00 2021-04-07 16:18:00 Emergency X [facility] ERT [id number] [facility] 2021-01-12 03:01:00 2021-01-12 04:56:00 Emergency Narayan Narvaez [facility] 1.2.840.114 350.1.13.10 4.2.7.2.686 [id number] 084 [id number] [facility] 2021-01-12 03:01:00 2021-01-12 03:01:00 Emergency X NARVAEZNARAYAN BENAVIDES [facility] ERT [id number] [facility] 2020-12-10 17:12:00 2020-12-10 21:14:00 Emergency Bal Hassan [facility] 1.2.840.114 350.1.13.10 4.2.7.2.686 [id number] 084 [id number] [facility] 2020-12-10 17:12:00 2020-12-10 17:12:00 Emergency X HASSAN BAL [facility] ERT [id number] [facility] 2020-12-04 14:50:00 2020-12-04 17:08:00 Emergency Tremaine Becerra [facility] 1.2.840.114 350.1.13.10 4.2.7.2.686 [id number] [id number] [facility] 2020-12-04 14:50:00 2020-12-04 17:08:00 Emergency X TREMAINE BECERRA [facility] ERT [id number] [facility] 2020-11-03 20:44:00 2020-11-03 23:34:00 Emergency DreLeeanne zuniga [facility] 1.2.840.114 350.1.13.10 4.2.7.2.686 [id number] [facility] 2020-11-03 20:44:00 2020-11-03 23:34:00 Emergency X DRELEEANNE ZUNIGA [facility] ERT [id number] [facility] 2020-09-19 12:32:00 2020-09-19 14:15:00 Emergency ER WIL POLLOCKS [facility] [id number] [facility] 2020-09-17 09:53:00 2020-09-17 11:55:00 Emergency DreLeeanne zuniga [facility] 1.2.840.114 350.1.13.10 4.2.7.2.686 [id number] 084 [id number] 2020-09-17 09:53:00 2020-09-17 11:55:00 Emergency DreLeeanne zuniga [facility] 1.2.840.114 350.1.13.10 4.2.7.2.686 [id number] 084 [id number] [facility] 2020-09-17 09:53:00 2020-09-17 11:55:00 Emergency X DRELEEANNE ZUNIGA [facility] ERT [id number] [facility] 2020-09-07 00:37:00 2020-09-07 01:41:00 Emergency Saleem Edward [facility] 1.2.840.114 350.1.13.10 4.2.7.2.686 [id number] 084 [id number] 2020-09-07 00:37:00 2020-09-07 01:41:00 Emergency Saleem Edward [facility] 1.2.840.114 350.1.13.10 4.2.7.2.686 [id number] 084 [id number] [facility] 2020-09-07 00:37:00 2020-09-07 01:41:00 Emergency X Saleem EDWARD [facility] ERT [id number] [facility] 2020-09-07 00:00:00 2020-09-07 00:00:00 Orders Only Doctor Unassigned, [place] [facility] 1.2.840.114 350.1.13.10 4.2.7.2.686 [id number] [id number] 2020-09-07 00:00:00 2020-09-07 00:00:00 Orders Only Doctor Unassigned, [place] [facility] 1.2.840.114 350.1.13.10 4.2.7.2.686 [id number] [facility] 2020-08-28 01:59:00 2020-08-28 04:40:00 Emergency Olivia Garcia [facility] 1.2.840.114 350.1.13.10 4.2.7.2.686 [id number] [id number] 2020-08-28 01:59:00 2020-08-28 04:40:00 Emergency Olivia Garcia [facility] 1.2.840.114 350.1.13.10 4.2.7.2.686 [id number] [id number] [facility] 2020-08-28 01:59:00 2020-08-28 01:59:00 Emergency OLIVIA WAYNE [facility] ERT [id number] [facility] 2020-08-14 11:48:00 2020-08-14 13:42:00 Emergency Best Taylor [facility] 1.2.840.114 350.1.13.10 4.2.7.2.686 [id number] 084 [id number] 2020-08-14 11:48:00 2020-08-14 13:42:00 Emergency Best Taylor [facility] 1.2.840.114 350.1.13.10 4.2.7.2.686 [id number] 084 [id number] [facility] 2020-08-14 11:33:00 2020-08-14 11:33:00 Emergency BEST BORGES [facility] ERT [id number] [facility] 2020-08-10 18:35:00 2020-08-11 00:05:00 [facility] 1.2.840.114 350.1.13.10 4.2.7.2.686 [id number] 084 [id number] 2020-08-10 18:35:00 2020-08-11 00:05:00 Emergency Best Taylor Wakili [facility] 1.2.840.114 350.1.13.10 4.2.7.2.686 [id number] 084 [id number] [facility] 2020-08-10 18:35:00 2020-08-11 00:05:00 Emergency OLIVIA WAYNE [facility] ERT [id number] [facility] 2020-08-07 07:19:00 2020-08-07 09:02:00 Emergency Roberto Richards [facility] 1.2.840.114 350.1.13.10 4.2.7.2.686 [id number] 084 [id number] 2020-08-07 07:19:00 2020-08-07 09:02:00 Emergency Roberto Richards [facility] 1.2.840.114 350.1.13.10 4.2.7.2.686 [id number] 084 [id number] [facility] 2020-08-07 07:12:00 2020-08-07 07:12:00 Emergency X [facility] ERT [id number] [facility] 2020-08-07 00:00:00 2020-08-07 00:00:00 Orders Only Doctor Unassigned, [place] [facility] 1.2.840.114 350.1.13.10 4.2.7.2.686 [id number] [id number] 2020-08-07 00:00:00 2020-08-07 00:00:00 Orders Only Doctor Unassigned, [place] [facility] 1.2.840.114 350.1.13.10 4.2.7.2.686 [id number] [id number] [facility] 2020-07-01 00:00:00 2020-07-01 00:00:00 Letter (Out) [facility] 1.2.840.114 350.1.13.10 4.2.7.2.686 [id number] 2020-07-01 00:00:00 2020-07-01 00:00:00 Letter (Out) [facility] 1.2.840.114 350.1.13.10 4.2.7.2.686 [id number] 019 [id number] [facility] 2020-06-30 17:46:00 2020-06-30 21:06:00 Emergency Abdias Robertson [facility] 1.2.840.114 350.1.13.10 4.2.7.2.686 [id number] 084 [id number] 2020-06-30 17:46:00 2020-06-30 21:06:00 Emergency Abdias Robertson [facility] 1.2.840.114 350.1.13.10 4.2.7.2.686 [id number] 084 [id number] [facility] 2020-06-30 17:46:00 2020-06-30 21:06:00 Emergency X ABDIAS ROBERTSON [facility] ERT [id number] [facility] 2020-06-28 16:00:00 2020-06-28 18:08:00 Emergency Narayan Narvaez [facility] 1.2.840.114 350.1.13.10 4.2.7.2.686 [id number] 084 [id number] 2020-06-28 16:00:00 2020-06-28 18:08:00 Emergency Singer [facility] 1.2.840.114 350.1.13.10 4.2.7.2.686 [id number] 084 [id number] [facility] 2020-06-28 16:00:00 2020-06-28 16:00:00 Emergency NARAYAN MATA [facility] ERT [id number] [facility] 2020-06-14 00:00:00 2020-06-14 00:00:00 Telephone Kamryn Sheppard [facility] 1.2.840.114 350.1.13.10 4.2.7.2.686 [id number] 2020-06-14 00:00:00 2020-06-14 00:00:00 Telephone Kamryn Sheppard [facility] 1.2.840.114 350.1.13.10 4.2.7.2.686 [id number] 019 [id number] [facility] 2020-06-12 17:40:00 2020-06-12 22:05:00 Emergency Candi Wiseeduard Foster [facility] 1.2.840.114 350.1.13.10 4.2.7.2.686 [id number] 084 [id number] 2020-06-12 17:40:00 2020-06-12 22:05:00 Emergency Leeanne Wise [facility] 1.2.840.114 350.1.13.10 4.2.7.2.686 [id number] 084 [id number] [facility] 2020-06-12 17:28:00 2020-06-12 17:28:00 Emergency X [facility] ERT [id number] [facility] 2020-05-16 17:10:00 2020-05-16 19:01:00 Emergency Bushra Rios [facility] 1.2.840.114 350.1.13.10 4.2.7.2.686 [id number] 084 [id number] 2020-05-16 17:10:00 2020-05-16 19:01:00 Emergency Bushra Rios [facility] 1.2.840.114 350.1.13.10 4.2.7.2.686 [id number] [id number] [facility] 2020-05-16 17:10:00 2020-05-16 17:10:00 Emergency X BUSHRA RIOS [facility] ERT [id number] [facility] 2020-05-14 23:18:00 2020-05-15 02:54:00 Emergency Maurice Roberto [facility] 1.2.840.114 350.1.13.10 4.2.7.2.686 [id number] 084 [id number] 2020-05-14 23:18:00 2020-05-15 02:54:00 Emergency Maurice Roberto [facility] 1.2.840.114 350.1.13.10 4.2.7.2.686 [id number] [facility] 2020-05-14 23:14:00 2020-05-14 23:14:00 Emergency X ROBERTO RICHARDS [facility] ERT [id number] [facility] 2009-07-18 05:35:00 2009-07-18 09:19:00 Emergency ER SINCERE FRANK [facility] [id number] [facility] 2008-10-08 09:55:00 2008-10-08 14:19:00 Emergency ER GUMARO ALVAREZ [facility] [id number] [facility] 2008-03-26 15:21:00 2008-03-26 18:08:00 Emergency ER NEIL WILKINS [facility] [id number] [facility] 2005-05-25 06:35:00 2005-05-25 06:35:00 Outpatient LISA LUNA [facility] [id number] [facility] 2005-05-16 21:57:00 2005-05-16 23:40:00 Emergency ER JOSÉ MANUELSHARANJW [facility] [id number] [facility] 2005-04-24 18:49:00 2005-04-24 22:40:00 Emergency ER JEANINE ASHLEYMONICA [facility] [id number] [facility] 2004-12-27 20:30:00 2004-12-28 01:40:00 Emergency ER SANIA SIBLEY [facility] [id number] [facility] 2003-12-07 22:40:00 2003-12-08 02:48:00 Emergency ER ARTGWENDOLYN BarkerGINA [facility] [id number] [facility] 2003-12-06 13:57:00 2003-12-06 18:30:00 Emergency ER GABRIEL YIN [facility] [id number] [facility] 2003-08-31 19:43:00 2003-08-31 22:55:00 Emergency ER GUMARO ALVAREZ [facility] [id number] [facility] 2003-08-22 19:26:00 2003-08-22 22:10:00 Emergency ER ALBERTO CASTLE [facility] [id number] [facility] 2002-01-30 22:41:00 2002-01-31 01:29:00 Emergency ER ANTHONY SCHNEIDER [facility] [id number] [facility] 2001-10-28 09:15:00 2001-10-28 11:25:00 Emergency ER DARCIE MCKEON [facility] [id number] [facility] 2001-04-15 19:14:00 2001-04-15 23:10:00 Emergency ER ARLETTE ROBERT [facility] [id number] [facility] 2000-12-25 21:52:00 2000-12-26 00:15:00 Emergency ER GISELA RIOS [facility] [id number] [facility] 2000-12-23 18:51:00 2000-12-23 22:00:00 Emergency ER HUGO COFFMAN [facility] [id number] [facility] 1999-10-26 21:11:00 1999-10-27 00:20:00 Emergency ER JEANINE ASHLEYMONICA [facility] [id number] [facility] Results Test Description Test Time Test Comments Results Result Comments Source CT Abdomen pelvis w contrast 04:15:32 CT ABDOMEN PELVIS W CONTRAST 10/23/2024 10:24 PM HISTORY: Abdominal pain, acute, nonlocalized. Upper abdominal pain radiatesto left side. COMPARISON: Multiple prior CT studies, the most recent one dated109/03/2023. TECHNIQUE: Axial images of the abdomen and pelvis were acquired afteradministration of intravenous contrast. Coronal and sagittalreconstructions were also created. FINDINGS: LOWER CHEST: Bibasilar atelectasis. ? HEPATOBILIARY: The liver is normal in size. No focal hepatic lesion.The gallbladder is surgically absent.Mild biliary ductal dilatation, similar to prior and likely related toreservoir phenomena. SPLEEN: Mildly enlarged and measures 13.1 cm. ?No lesion. Small calcifiedgranuloma is noted. PANCREAS: The parenchyma is unremarkable. No ductal dilatation. No masses. ADRENAL GLANDS: Unchanged left adrenal 3 cm adenoma. Normal right adrenalgland. KIDNEYS: No hydronephrosis or stone. No solid mass. Left renalsubcentimeter hypodensity is noted, too small to characterize. PELVIS/BLADDER: The urinary bladder is normal. 3.5 cm uterine fibroid isagain noted. Left adnexal 3 cm bilocular cyst or cluster of 2 cysts. GI TRACT: Small sliding hiatus hernia. No dilation or wall thickening. Theappendix is normal. PERITONEUM AND RETROPERITONEUM: No free air or free fluid. LYMPH NODES: No lymphadenopathy is seen. VESSELS: Minimal atherosclerotic calcifications of right iliac arteries.Normal caliber of the aorta. BONES AND SOFT TISSUES: No aggressive osseous lesion or acute osseousabnormality. Mild degenerative changes of the spine. No concerning softtissue abnormality. [facility]16[facility]47* Test Item Value Reference Range Interpretation Comme nts LIPASE (test code = 0930601031) 110 U/L 0-220 Lab Interpretation (test cod e = 54326-6) Normal [facility] with Kcyj8212-95-09 02:13:50* Test Item Value Reference Range Interpretation Comme nts WBC (test code = 6690-2) 11.13 4.30-11.10 H RBC (test code = 789-8) 4.68 3.93-5.25 HGB (test code = 718-7) 12.3 g/dL 11.6-15.0 HCT (test code = 4544-3) 37.4 % 35.7-45.2 MCV (test code = 787-2) 79.9 fL 80.6-95.5 L MCH (test code = 785-6) 26.3 pg 25.9-32.8 MCHC (test code = 786-4) 32.9 g/dL 31.6-35.1 RDW-SD (test code = 20247-4) 52.2 fL 39.0-49.9 H RDW-CV (test code = 788-0) 17.9 % 12.0-15.5 H PLT (test code = 777-3) 337 166-358 MPV (test code = 94886-5) 9.6 fL 9.5-12.9 IPF % (test code = 7852380722) 1.6 % 1.3-7.7 Platelet count measured by fluorescence method. NRBC/100 WBC (test code = 6006016603) 0 0.0-10.0 NRBC x10^3 (test code = 4344232072) See_Comment [Automated messa ge] The system which generated this result transmitted reference range: 10*3/?L. The reference range was not used to interpret this result as normal/abnormal. GRAN MAT (NEUT) % (test code = 770-8) 62.2 % IMM GRAN % (test code = 1369754376) 0.3 % LYMPH % (test code = 736-9) 29.3 % MONO % (test code = 5905-5) 6.2 % EOS % (test code = 713-8) 1.6 % BASO % (test code = 706-2) 0.4 % GRAN MAT x10^3(ANC) (test code = 5535716825) 6.92 10*3/uL 1.88-7.09 IMM GRAN x10^3 (test code = 3364586002) 0.03 10*3/uL 0.00-0.06 LYMPH x10^3 (test code = 731-0) 3.26 10*3/uL 1.32-3.29 MONO x10^3 (test code = 742-7) 0.69 10*3/uL 0.33-0.92 EOS x10^3 (test code = 711-2) 0.18 10*3/uL 0.03-0.39 BASO x10^3 (test code = 704-7) 0.05 10*3/uL 0.01-0.07 Lab Interpretation (test code = 90356-0) [facility]normal [facility] [id number] 07:13:54* Test Item Value Reference Range Interpretation Comme nts TROPONIN I (test code = 9191774854) 0.002 ng/mL <=0.034 DARWIN (test code = DARWIN) [...] of biotin. Lab Interpretation (test code = 36060-5) Normal [facility] [id number] 05:06:47* Test Item Value Reference Range Interpretation Comme nts TROPONIN I (test code = 5522751047) 0.001 ng/mL <=0.034 DARWIN (test code = [...] of biotin. Lab Interpretation (test code = 15868-3) Normal [facility]inal Nyx-Xhi1215-62-08 05:04:06* Test Item Value Reference Range Interpretation Comme nts NT-proBNP (test code = 29882-0) 110 pg/mL <=125 Lab Interpretation (test cod e = 37759-8) Normal [facility] Met[facility] Panel (68556)2024-10-13 04:55:24* Test Item Value Reference Range Interpretation Comme nts NA (test code = 6752014135) 135 mmol/L 135-145 K (test code = 6551669954) 3.5 mmol/L 3.5-5.0 CL (test code = 7230733209) 104 mmol/L 98-108 CO2 TOTAL (test code = 6880967768) 25 mmol/L 23-31 AGAP (test code = 5334060800) 6 2-16 BUN (test code = 8386657800) 12 mg/dL 7-23 GLUCOSE (test code = 1816622738) 83 mg/dL 70-110 CREATININE (test code = 2160-0) 0.55 mg/dL 0.50-1.04 TOTAL BILI (test code = 9207073046) 0.2 mg/dL 0.1-1.1 CALCIUM (test code = 2103393375) 9.2 mg/dL 8.6-10.6 T PROTEIN (test code = 1340224760) 6.3 g/dL 6.3-8.2 ALBUMIN (test code = 1907162468) 3.5 g/dL 3.5-5.0 ALK PHOS (test code = 4357060576) 58 U/L 34-122 ALTv (test code = 1742-6) 12 U/L 5-35 AST(SGOT) (test code = 2268992699) 13 U/L 13-40 eGFR (test code = 97110-1) 115.4 mL/min/1.73m2 CKD-EPI eGFR (20 21). Assuming creatinine has been stable day-to-day for at least three months, the eGFR indicates Category G1 (>= 90 mL/min/1.73 m2) [facility] 04:55:03* Test Item Value Reference Range Interpretation Comme nts LIPASE (test code = 1601526489) 80 U/L 0-220 Lab Interpretation (test cod e = 73557-4) Normal [facility] with Dlsd0428-73-06 04:41:23* Test Item Value Reference Range Interpretation [...] 32.1 g/dL 31.6-35.1 RDW-SD (test code = 52708-7) 51.6 fL 39.0-49.9 H RDW-CV (test code = 788-0) 17.9 % 12.0-15.5 H PLT (test code = 777-3) 328 166-358 MPV (test code = 38160-3) 8.9 fL 9.5-12.9 L NRBC/100 WBC (test code = 8803777731) 0.0 0.0-10.0 NRBC x10^3 (test code = 7937630449) See_Comment [Automated messa ge] The system which generated this result transmitted reference range: 10*3/?L. The reference range was not used to interpret this result as normal/abnormal. GRAN MAT (NEUT) % (test code = 770-8) 60.6 % IMM GRAN % (test code = 7084099592) 0.60 % LYMPH % (test code = 736-9) 31.0 % MONO % (test code = 5905-5) 5.9 % EOS % (test code = 713-8) 1.5 % BASO % (test code = 706-2) 0.4 % GRAN MAT x10^3(ANC) (test code = 9685351318) 6.12 10*3/uL 1.88-7.09 IMM GRAN x10^3 (test code = 7380444877) 0.06 10*3/uL 0.00-0.06 LYMPH x10^3 (test code = 731-0) 3.13 10*3/uL 1.32-3.29 MONO x10^3 (test code = 742-7) 0.60 10*3/uL 0.33-0.92 EOS x10^3 (test code = 711-2) 0.15 10*3/uL 0.03-0.39 BASO x10^3 (test code = 704-7) 0.04 10*3/uL 0.01-0.07 Lab Interpretation (test code = 00926-6) Abnormal [facility] PLTW9134-11-31 03:46:00* Test Item Value Reference Range Interpretation Comme nts POCT PREG (test code = 1605) Negative On board controls acceptable with C Line (test code = 3574) Yes POCT PREG LOT # (test code = 3575) [id number] POCT PREG TEST DATE ( test code = 3576) 11/30/2025 Lab Interpretation (test cod e = 53978-1) Normal [facility] pulmonary oxpyhtitx2054-72-78 06:33:58Exam: CT Angiography Chest with Contrast, 07/18/2024 [...] the spleen. Osseous: No acute osseous finding. [facility] Abdomen pelvis w vkaartvv2518-79-83 06:50:04Exam: CT Abdomen and Pelvis With Contrast, [...] ?There is nopelvic adenopathy. Osseous/Soft Tissues: Unremarkable. [facility] HospitalPO[facility] [id number] 05:33:00* Test Item Value Reference Range Interpretation Comme [facility] POCT PREG (test code = 1605) Negative On board controls acceptable with C Line (test code = 3574) Yes POCT PREG LOT # (test code = 3575) [id number] POCT PREG TEST DATE ( test code = 3576) 2025-06-22 Lab Interpretation (test cod e = 83958-7) Normal [facility] Metabolic Fgvbe1093-93-54 04:06:42* Test Item Value Reference Range Interpretation Comme [facility] NA (test code = 3413439486) 139 mmol/L 135-145 K (test code = 1202051257) 3.5 mmol/L 3.5-5.0 CL (test code = 2745018256) 105 mmol/L 98-108 CO2 TOTAL (test code = 4100413523) 26 mmol/L 23-31 AGAP (test code = 7247089634) 8 2-16 BUN (test code = 9412885381) 5 mg/dL 7-23 L GLUCOSE (test code = 9650505736) 101 mg/dL 70-110 CREATININE (test code = 2160-0) 0.58 mg/dL 0.50-1.04 TOTAL BILI (test code = 8316458612) 0.1-1.1 L CALCIUM (test code = 9161969987) 9.3 mg/dL 8.6-10.6 T PROTEIN (test code = 5779014228) 6.8 g/dL 6.3-8.2 ALBUMIN (test code = 2358451042) 3.9 g/dL 3.5-5.0 ALK PHOS (test code = 8897424792) 74 U/L 34-122 ALTv (test code = 1742-6) 17 U/L 5-35 AST(SGOT) (test code = 5928234921) 28 U/L 13-40 eGFR (test code = 44885-6) 113.9 mL/min/1.73m2 CKD-EPI eGFR (2020). Assuming creatinine has been stable day-to-day for at least three months, the eGFR indicates Category G1 (>= 90 mL/min/1.73 m2) Lab Interpretation (test code = 07362-7) Abnormal [facility], Vhgff9416-42-33 04:01:05* Test Item Value Reference Range Interpretation Comme nts LIPASE (test code = 1744061266) 80 U/L 0-220 Lab Interpretation (test cod e = 07492-7) Normal [facility] with Zmigeccefcuz9650-56-17 03:46:26* Test Item Value Reference Range Interpretation [...] 33.2 g/dL 31.6-35.1 RDW-SD (test code = 40201-1) 42.5 fL 39.0-49.9 RDW-CV (test code = 788-0) 14.6 % 12.0-15.5 PLT (test code = 777-3) 327 166-358 MPV (test code = 82964-1) 9.3 fL 9.5-12.9 L NRBC/100 WBC (test code = 0484032528) 0.0 0.0-10.0 NRBC x10^3 (test code = 8190211330) See_Comment [Automated Electric Entertainmenta ge] The system which generated this result transmitted reference range: 10*3/?L. The reference range was not used to interpret this result as normal/abnormal. GRAN MAT (NEUT) % (test code = 770-8) 65.7 % IMM GRAN % (test code = 5488867176) 0.50 % LYMPH % (test code = 736-9) 26.4 % MONO % (test code = 5905-5) 5.6 % EOS % (test code = 713-8) 1.4 % BASO % (test code = 706-2) 0.4 % GRAN MAT x10^3(ANC) (test code = 2580468172) 8.21 10*3/uL 1.88-7.09 H IMM GRAN x10^3 (test code = 2569869215) 0.06 10*3/uL 0.00-0.06 LYMPH x10^3 (test code = 731-0) 3.30 10*3/uL 1.32-3.29 H MONO x10^3 (test code = 742-7) 0.70 10*3/uL 0.33-0.92 EOS x10^3 (test code = 711-2) 0.17 10*3/uL 0.03-0.39 BASO x10^3 (test code = 704-7) 0.05 10*3/uL 0.01-0.07 Lab Interpretation (test code = 43089-2) [facility] [id number] 05:39:04CT ABDOMEN PELVIS W CONTRAST HISTORY: 44 [...] TISSUES: No suspicious lytic or sclerotic bony lesions.[facility]. Metabolic Panel (18120)2024-06-15 05:12:33* Test Item Value Reference Range Interpretation Comme nts NA (test code = 2395415581) 139 mmol/L 135-145 K (test code = 4729607639) 3.7 mmol/L 3.5-5.0 CL (test code = 8038969008) 109 mmol/L 98-108 H CO2 TOTAL (test code = 0619235102) 23 mmol/L 23-31 AGAP (test code = 7129196207) 7 2-16 BUN (test code = 8008296892) 6 mg/dL 7-23 L GLUCOSE (test code = 4128237688) 101 mg/dL 70-110 CREATININE (test code = 2160-0) 0.67 mg/dL 0.50-1.04 TOTAL BILI (test code = 1519353039) 0.1-1.1 L CALCIUM (test code = 4454990731) 9.4 mg/dL 8.6-10.6 T PROTEIN (test code = 0945795413) 7.0 g/dL 6.3-8.2 ALBUMIN (test code = 6194025520) 4.0 g/dL 3.5-5.0 ALK PHOS (test code = 9655494687) 87 U/L 34-122 ALTv (test code = 1742-6) 28 U/L 5-35 AST(SGOT) (test code = 5487451230) 24 U/L 13-40 eGFR (test code = 89774-6) 110.0 mL/min/1.73m2 CKD-EPI eGFR (2020). Assuming creatinine has been stable day-to-day for at least three months, the eGFR indicates Category G1 (>= 90 mL/min/1.73 m2) Lab Interpretation (test code = 61139-1) [facility] [id number] 05:03:33* Test Item Value Reference Range Interpretation Comme nts TROPONIN I (test code = 9065864547) 0.000 ng/mL <=0.034 DARWIN (test code = [...] of biotin. Lab Interpretation (test code = 20447-6) [facility]24[facility] 04:51:35* Test Item Value Reference Range Interpretation Comme nts LIPASE (test code = 1540961372) 94 U/L 0-220 Lab Interpretation (test cod e = 36000-3) [facility], [id number] 04:51:30* Test Item Value Reference Range Interpretation Comme nts PREG SERUM (test code = 1508703096) Negative DARWIN (test code = DARWIN) Less than 10 IU/L. ?If low titer or ectopic is suspected, resubmit specimen in 48-72 hours. [facility]Cb with [id number] 04:36:57* Test Item Value Reference Range Interpretation [...] 32.9 g/dL 31.6-35.1 RDW-SD (test code = 02689-8) 44.3 fL 39.0-49.9 RDW-CV (test code = 788-0) 15.0 % 12.0-15.5 PLT (test code = 777-3) 347 166-358 MPV (test code = 37454-0) 9.4 fL 9.5-12.9 L NRBC/100 WBC (test code = 6041448621) 0.0 0.0-10.0 NRBC x10^3 (test code = 1767176560) See_Comment [Automated messa ge] The system which generated this result transmitted reference range: 10*3/?L. The reference range was not used to interpret this result as normal/abnormal. GRAN MAT (NEUT) % (test code = 770-8) 60.2 % IMM GRAN % (test code = 0740629577) 0.40 % LYMPH % (test code = 736-9) 31.3 % MONO % (test code = 5905-5) 5.8 % EOS % (test code = 713-8) 1.8 % BASO % (test code = 706-2) 0.5 % GRAN MAT x10^3(ANC) (test code = 0025139878) 6.36 10*3/uL 1.88-7.09 IMM GRAN x10^3 (test code = 7809157109) 0.04 10*3/uL 0.00-0.06 LYMPH x10^3 (test code = 731-0) 3.30 10*3/uL 1.32-3.29 H MONO x10^3 (test code = 742-7) 0.61 10*3/uL 0.33-0.92 EOS x10^3 (test code = 711-2) 0.19 10*3/uL 0.03-0.39 BASO x10^3 (test code = 704-7) 0.05 10*3/uL 0.01-0.07 Lab Interpretation (test code = 69855-2) Abnormal [facility] [id number] 07:55:17* Test Item Value Reference Range Interpretation Comme nts TROPONIN I (test code = 9248850636) 0.000 ng/mL <=0.034 DARWIN (test code = [...] of biotin. Lab Interpretation (test code = 64420-3) [facility] [id number] 06:16:28Exam: Chest (1 View), 06/06/2024 11:30 PM. Ordering Physician: OLIVIA GARCIA. History: Chest pain. Technique: AP view of the chest. Technical Quality: Adequate. Comparison: Chest radiograph 05/17/2024. Findings: Normal cardiac silhouette size. ?No airspace consolidation, pleuraleffusion, or pneumothorax. No acute osseous abnormality.[facility]PO[facility] [id number] 05:19:00* Test Item Value Reference Range Interpretation Comme nts POCT PREG (test code = 1605) Negative On board controls acceptable with C Line (test code = 3574) Yes POCT PREG LOT # (test code = 3575) [id number] POCT PREG TEST DATE ( test code = 3576) 04/11/2025 Lab Interpretation (test cod e = 22577-3) Normal [place] 10209024-12-01 05:00:24* Test Item Value Reference Range Interpretation Comme nts TROPONIN I (test code = 9780194125) 0.000 ng/mL <=0.034 DARWIN (test code = [...] of biotin. Lab Interpretation (test code = 04922-9) Normal [facility]. Metabolic Panel (04048)2024-06-07 05:00:19* Test Item Value Reference Range Interpretation Comme nts NA (test code = 5950762922) 139 mmol/L 135-145 K (test code = 4239731369) 3.6 mmol/L 3.5-5.0 CL (test code = 5820692542) 108 mmol/L 98-108 CO2 TOTAL (test code = 8238430596) 22 mmol/L 23-31 L AGAP (test code = 8321122101) 9 2-16 BUN (test code = 8775495516) 10 mg/dL 7-23 GLUCOSE (test code = 7426565183) 144 mg/dL 70-110 H CREATININE (test code = 2160-0) 0.62 mg/dL 0.50-1.04 TOTAL BILI (test code = 3522501326) 0.1-1.1 L CALCIUM (test code = 1416726935) 9.2 mg/dL 8.6-10.6 T PROTEIN (test code = 4494612906) 6.5 g/dL 6.3-8.2 ALBUMIN (test code = 6262369439) 3.7 g/dL 3.5-5.0 ALK PHOS (test code = 6042406347) 69 U/L 34-122 ALTv (test code = 1742-6) 14 U/L 5-35 AST(SGOT) (test code = 0928668280) 15 U/L 13-40 eGFR (test code = 45953-5) 112.1 mL/min/1.73m2 CKD-EPI eGFR (2020). Assuming creatinine has been stable day-to-day for at least three months, the eGFR indicates Category G1 (>= 90 mL/min/1.73 m2) Lab Interpretation (test code = 06776-7) Abnormal [facility] with Umid5041-03-09 04:38:25* Test Item Value Reference Range Interpretation [...] 32.8 g/dL 31.6-35.1 RDW-SD (test code = 82333-4) 44.1 fL 39.0-49.9 RDW-CV (test code = 788-0) 14.9 % 12.0-15.5 PLT (test code = 777-3) 358 166-358 MPV (test code = 08968-3) 9.4 fL 9.5-12.9 L NRBC/100 WBC (test code = 6895926528) 0.0 0.0-10.0 NRBC x10^3 (test code = 4768281759) See_Comment [Automated messa ge] The system which generated this result transmitted reference range: 10*3/?L. The reference range was not used to interpret this result as normal/abnormal. GRAN MAT (NEUT) % (test code = 770-8) 58.2 % IMM GRAN % (test code = 4185480821) 0.40 % LYMPH % (test code = 736-9) 34.1 % MONO % (test code = 5905-5) 4.7 % EOS % (test code = 713-8) 2.3 % BASO % (test code = 706-2) 0.3 % GRAN MAT x10^3(ANC) (test code = 7133380504) 5.33 10*3/uL 1.88-7.09 IMM GRAN x10^3 (test code = 9737313114) 0.04 10*3/uL 0.00-0.06 LYMPH x10^3 (test code = 731-0) 3.12 10*3/uL 1.32-3.29 MONO x10^3 (test code = 742-7) 0.43 10*3/uL 0.33-0.92 EOS x10^3 (test code = 711-2) 0.21 10*3/uL 0.03-0.39 BASO x10^3 (test code = 704-7) 0.03 10*3/uL 0.01-0.07 Lab Interpretation (test code = 45637-6) Abnormal [facility] [id number] 18:53:41EXAM: CT HEAD WO CONTRAST HISTORY: 44 [...] clear. Thecalvarium and central skull base are unremarkable.[facility] FOREARM 2 VW [id number] 04:08:39EXAM: XR HAND 3+ VW RIGHT, XR [...] radiopaqueforeign body. Mild diffuse soft tissue swelling.[facility]W [id number] 04:08:39EXAM: XR HAND 3+ VW RIGHT, XR [...] radiopaqueforeign body. Mild diffuse soft tissue swelling.[facility] ELBOW <3 VW [id number] 04:08:39EXAM: XR HAND 3+ VW RIGHT, XR [...] radiopaqueforeign body. Mild diffuse soft tissue swelling. [facility] MAXILLOFACIAL/MANDIBLE WO CONTRAST 2024-05-18 03:36:27ORDERING PHYSICIAN:ALESHA [...] no evidence of retrobulbar hematomas or retroconal fatstranding.[facility] CERV[facility] SPINE WO CONTRAST 2024-05-18 03:28:19ORDERING [...] tissues arenormal. The visualized lung apices are clear.[facility]PO[facility] Xney0015-31-81 02:00:00* Test Item Value Reference Range Interpretation Comme nts POCT PREG (test code = 1605) Negative On board controls acceptable with C Line (test code = 3574) Yes Lab Interpretation (test cod e = 04512-7) Normal [facility]. Metabolic Panel (70464)2024-05-08 01:19:56* Test Item Value Reference Range Interpretation Comme nts NA (test code = 0707468371) 139 mmol/L 135-145 K (test code = 9417635065) 3.3 mmol/L 3.5-5.0 L CL (test code = 3130294178) 107 mmol/L 98-108 CO2 TOTAL (test code = 4779969658) 22 mmol/L 23-31 L AGAP (test code = 3291640887) 10 2-16 BUN (test code = 8078160944) 5 mg/dL 7-23 L GLUCOSE (test code = 0309467410) 131 mg/dL 70-110 H CREATININE (test code = 2160-0) 0.72 mg/dL 0.50-1.04 TOTAL BILI (test code = 2427513881) 0.1-1.1 L CALCIUM (test code = 0320066989) 9.3 mg/dL 8.6-10.6 T PROTEIN (test code = 5320848648) 7.0 g/dL 6.3-8.2 ALBUMIN (test code = 9546023273) 4.1 g/dL 3.5-5.0 ALK PHOS (test code = 1361244707) 76 U/L 34-122 ALTv (test code = 1742-6) 27 U/L 5-35 AST(SGOT) (test code = 3435756121) 30 U/L 13-40 eGFR (test code = 77360-6) 105.2 mL/min/1.73m2 CKD-EPI eGFR (2021). Assuming creatinine has been stable day-to-day for at least three months, the eGFR indicates Category G1 (>= 90 mL/min/1.73 m2) Lab Interpretation (test code = 99097-7) Abnormal [facility] HospitalTroponin [id number] 01:18:54* Test Item Value Reference Range Interpretation Comme nts TROPONIN I (test code = 1348076813) 0.003 ng/mL <=0.034 DARWIN (test code = [...] of biotin. Lab Interpretation (test code = 05557-9) Normal [facility] HospitalMagnesium2024-11-01 01:07:50* Test Item Value Reference Range Interpretation Comme nts MAGNESIUM (test code = 1852019266) 1.7 mg/dL 1.7-2.4 Lab Interpretation (test cod e = 66732-2) Normal [facility] HospitalLipase2024-11-01 01:07:30* Test Item Value Reference Range Interpretation Comme nts LIPASE (test code = 9041970665) 97 U/L 0-220 Lab Interpretation (test cod e = 02826-2) Normal [facility] Hospital[facility]b with Wzjw2642-13-08 00:51:30* Test Item Value Reference Range Interpretation [...] 33.2 g/dL 31.6-35.1 RDW-SD (test code = 31592-1) 43.6 fL 39.0-49.9 RDW-CV (test code = 788-0) 14.8 % 12.0-15.5 PLT (test code = 777-3) 382 166-358 H MPV (test code = 80716-0) 9.7 fL 9.5-12.9 NRBC/100 WBC (test code = 6086856006) 0.0 0.0-10.0 NRBC x10^3 (test code = 4434891780) See_Comment [Automated messa ge] The system which generated this result transmitted reference range: 10*3/?L. The reference range was not used to interpret this result as normal/abnormal. GRAN MAT (NEUT) % (test code = 770-8) 63.3 % IMM GRAN % (test code = 0718287357) 0.40 % LYMPH % (test code = 736-9) 27.5 % MONO % (test code = 5905-5) 5.4 % EOS % (test code = 713-8) 2.9 % BASO % (test code = 706-2) 0.5 % GRAN MAT x10^3(ANC) (test code = 0921145348) 7.25 10*3/uL 1.88-7.09 H IMM GRAN x10^3 (test code = 9134077127) 0.05 10*3/uL 0.00-0.06 LYMPH x10^3 (test code = 731-0) 3.15 10*3/uL 1.32-3.29 MONO x10^3 (test code = 742-7) 0.62 10*3/uL 0.33-0.92 EOS x10^3 (test code = 711-2) 0.33 10*3/uL 0.03-0.39 BASO x10^3 (test code = 704-7) 0.06 10*3/uL 0.01-0.07 Lab Interpretation (test code = 74417-1) Abnormal [facility] or plasma cardiac troponin I panel by high sensitivity xgbmra3566-95-46 17:16:00* Test Item Value Reference Range Interpretation Comme nts Troponin T High Sensitivity (test code = 74065-7) < 6.0 [facility] CtrSerum or plasma glucose measurement (mass/volume) 2024-04-10 17:14:00* Test Item Value Reference Range Interpretation Comme nts Random Glucose (test code = 2345-7) 109 [facility] CtrSerum or plasma urea nitrogen measurement (mass/volume)2024-04-10 17:14:00* Test Item Value Reference Range Interpretation Comme nts Blood Urea Nitrogen (test co de = 3094-0) 4 [facility] SdmIRI5252-51-21 17:14:00* Test Item Value Reference Range Interpretation Comme nts Aspartate Amino Transf (AST/ SGOT) (test code = ROH9713) 14 [facility] CtrBilirubin zzgag4694-29-04 17:14:00* Test Item Value Reference Range Interpretation Comme nts Total Bilirubin (test code = SVC2910) < 0.2 [facility] CtrEstimated glomerular filtration rate (GFR) ujviktzinfivy8671-07-29 17:14:00* Test Item Value Reference Range Interpretation Comme nts Glomerular Filtration Rate C alc (test code = 333935516) > 60.00 [facility] CtrBUN/creatinine ncxtk9575-97-66 17:14:00* Test Item Value Reference Range Interpretation Comme nts BUN/Creatinine Ratio (test c ode = 89446018) 7.3 [facility] RuaWA09464-44-06 17:14:00* Test Item Value Reference Range Interpretation Comme nts Carbon Dioxide Level (test c ode = 41168602) 22 [facility] CtrAnion gap duwwhpnqwbt6425-47-30 17:14:00* Test Item Value Reference Range Interpretation Comme nts Anion Gap (test code = 96321995) 16.6 [facility] CtrCalcium xncvb1855-70-26 17:14:00* Test Item Value Reference Range Interpretation Comme nts Calcium Level (test code = 55557414) 9.9 [facility] CtrGlobulin sbu8685-42-18 17:14:00* Test Item Value Reference Range Interpretation Comme nts Globulin (test code = 512931877) 3.1 [facility] CtrALT (SGPT) ser/dpdj2210-16-19 17:14:00* Test Item Value Reference Range Interpretation Comme nts Alanine Aminotransferase (AL T/SGPT) (test code = 1742-6) 10 [facility] CtrAmylase gidis7455-02-71 17:14:00* Test Item Value Reference Range Interpretation Comme nts Amylase Level (test code = 1798-8) 48 [facility] GwjZhxmix7643-30-49 17:14:00* Test Item Value Reference Range Interpretation Comme nts Lipase (test code = 55834688) 24 [facility] CtrALP ser/bcgg9734-50-96 17:14:00* Test Item Value Reference Range Interpretation Comme nts Total Alkaline Phosphatase ( test code = 6768-6) 92 [facility] CtrAmphetamine ur jioviw9041-06-54 17:13:00* Test Item Value Reference Range Interpretation Comme nts Urine Amphetamines Screen (t est code = 23839-7) NEGATIVE [facility] BumTjdsdrqbj0856-11-12 17:13:00* Test Item Value Reference Range Interpretation Comme nts Methadone Level (test code = HWK0416) NEGATIVE [facility] CtrBenzodiazepines screen cz9001-99-55 17:13:00* Test Item Value Reference Range Interpretation Comme nts Urine Benzodiazepines Screen (test code = 224736955) POSITIVE [facility] CtrCannabinoids (5-sapdljo-LOK) zuyflpvxcrh3544-60-96 17:13:00* Test Item Value Reference Range Interpretation Comme nts Urine Cannabinoids (test cod e = 962668957) NEGATIVE [facility] CtrCocaine metabolite lsmtfg3869-40-94 17:13:00* Test Item Value Reference Range Interpretation Comme nts Urine Cocaine Metabolite (te st code = 511044216) NEGATIVE [facility] CtrOpiates tbggc5755-88-10 17:13:00* Test Item Value Reference Range Interpretation Comme nts Urine Opiates Screen (test c ode = 990572695) NEGATIVE [facility] CtrUrine hydrocodone measurement (mass/volume) 2024-04-10 17:13:00* Test Item Value Reference Range Interpretation Comme nts Hydrocodone Level (test code = 3681-4) NEGATIVE [facility] CtrUrine fentanyl measurement by confirmatory method (mass/volume)2024-04-10 17:13:00* Test Item Value Reference Range Interpretation Comme nts Urine Fentanyl Screen (test code = 60254-1) NEGATIVE [facility] CtrPhencyclidine (PCP) jd4975-46-44 17:13:00* Test Item Value Reference Range Interpretation Comme nts Urine Phencyclidine (PCP) [place] edilson (test code = 491756202) NEGATIVE [facility] CtrPropoxyphene [Mass/volume] in Mqrmy8084-94-92 17:13:00* Test Item Value Reference Range Interpretation Comme nts Propoxyphene Level (test cod e = 3545-1) NEGATIVE [facility] CtroxyCODONE [Mass/volume] in Edmnx3288-60-82 17:13:00* Test Item Value Reference Range Interpretation Comme nts Oxycodone Level (test code = 37034-7) NEGATIVE [facility] esterase sjrblcoyl9552-23-85 17:10:00* Test Item Value Reference Range Interpretation Comme nts Urine Leukocyte Esterase (te st code = 425537782) 3+ [facility] CtrUrine examination for white blood cells (WBC) 2024-04-10 17:08:00* Test Item Value Reference Range Interpretation Comme nts Urine WBC (test code = 057071522) >100 [facility] CtrAutomated epithelial cells count in urine sediment (number/area)2024-04-10 17:08:00* Test Item Value Reference Range Interpretation Comme nts Urine Epithelial Cells (test code = 20973-4) 6-10 [facility] CtrBacteria detection in urine sediment by light vsujxrdhvc0351-05-52 17:08:00* Test Item Value Reference Range Interpretation Comme nts Urine Bacteria (test code = 80283-7) Few [facility] CtrUrine casts detection by automated method 2024-04-10 17:08:00* Test Item Value Reference Range Interpretation Comme nts Urine Casts (test code = 41102-4) 0-2 [facility] CtrRBC count ur stoq0660-20-65 17:08:00* Test Item Value Reference Range Interpretation Comme nts Urine RBC (test code = 798-9) 0-2 [facility] CtrHCG ur DX8260-85-49 17:03:00* Test Item Value Reference Range Interpretation Comme nts Urine HCG, Qualitative (test code = 2106-3) NEGATIVE [facility] CtrColor of Urine by Umjr3334-60-64 17:03:00* Test Item Value Reference Range Interpretation Comme nts Urine Color (test code = 33298-4) Yellow [facility] CtrAppearance of Jsprd7333-80-97 17:03:00* Test Item Value Reference Range Interpretation Comme nts Urine Appearance (test code = 5767-9) Cloudy [facility] CenterU[facility] glucose udsnkinfi1981-46-26 17:03:00* Test Item Value Reference Range Interpretation Comme nts Urine Glucose (UA) (test cod e = 2349-9) Negative [facility] CtrBilirubin xo3892-52-39 17:03:00* Test Item Value Reference Range Interpretation Comme nts Urine Bilirubin (test code = 871685320) Negative [facility] CtrKetones ai4059-43-78 17:03:00* Test Item Value Reference Range Interpretation Comme nts Urine Ketones (test code = 63996014) Negative [facility] CtrSpecific gravity of Urine by Automated test strip 2024-04-10 17:03:00* Test Item Value Reference Range Interpretation Comme nts Urine Specific [place] (test code = 40220-8) 1.006 [facility] CtrUrine blood dyhsssxce5380-93-65 17:03:00* Test Item Value Reference Range Interpretation Comme nts Urine Blood (test code = 42222-9) Nonhemolyzed Trace [facility] CtrpH gf0413-62-85 17:03:00* Test Item Value Reference Range Interpretation Comme nts Urine pH (test code = 2756-5) 6.000 [facility] CtrProtein os0154-63-14 17:03:00* Test Item Value Reference Range Interpretation Comme nts Urine Protein (test code = 33882222) Negative [facility] CtrUrobilinogen, urine, ew4368-71-26 17:03:00* Test Item Value Reference Range Interpretation Comme nts Urine Urobilinogen (test cod e = 988134589) 0.2 [facility] CtrUrine nitrate pohkmmlmz2679-35-61 17:03:00* Test Item Value Reference Range Interpretation Comme nts Urine Nitrate (test code = 99630-2) Negative [facility] CtrAbsolute eosinophil elfhw0342-55-68 17:00:00* Test Item Value Reference Range Interpretation Comme nts Eosinophils # (Auto) (test c ode = HQH7998) 0.25 [facility] CtrRBC sztns6590-34-44 17:00:00* Test Item Value Reference Range Interpretation Comme [facility] Red Blood Count (test code = 73016911) 5.17 [facility] ZttWtpdeljvge7347-60-68 17:00:00* Test Item Value Reference Range Interpretation Comme [facility] Hematocrit (test code = 91673762) 41.9 [facility] CtrMCV (mean corpuscular volume) determination 2024-04-10 17:00:00* Test Item Value Reference Range Interpretation Comme [facility] Mean Corpuscular Volume (shailesh t code = 35240-0) 81.0 [facility] CtrMean corpuscular hemoglobin (MCH) determination 2024-04-10 17:00:00* Test Item Value Reference Range Interpretation Comme [facility] Mean Corpuscular Hemoglobin (test code = 78340220) 26.1 [facility] CtrMean corpuscular hemoglobin concentration (MCHC) kkstllhcamihp1345-63-11 17:00:00* Test Item Value Reference Range Interpretation Comme [facility] Mean Corpuscular Hemoglobin Concent (test code = 45441384) 32.2 [facility] CtrRBC distribution width coefficient of variation 2024-04-10 17:00:00* Test Item Value Reference Range Interpretation Comme [facility] Red Cell Distribution Width (test code = 21684282) 15.2 [facility] CtrPlatelet qmwks1943-68-63 17:00:00* Test Item Value Reference Range Interpretation Comme [facility] Platelet Count (test code = 78984039) 343 [facility] CtrMean platelet arahka0383-75-00 17:00:00* Test Item Value Reference Range Interpretation Comme nts Mean Platelet Volume (test c ode = 12164965) 9.3 [facility] CtrNeutrophils seg % ira5071-18-01 17:00:00* Test Item Value Reference Range Interpretation Comme nts Neutrophils (%) (Auto) (test code = 79372-0) 71.4 [facility] CtrAbsolute immature granulocyte nwdzv8403-78-72 17:00:00* Test Item Value Reference Range Interpretation Comme nts Absolute Immature Granulocyt e (auto (test code = 85593-3) 0.05 [facility]Blood [facility] neutrophils count (number/volume) 2024-04-10 17:00:00* Test Item Value Reference Range Interpretation Comme nts Neutrophils # (Auto) (test c ode = 72951-7) 8.20 [facility] CtrAbsolute lymphocyte fwgwf1911-78-13 17:00:00* Test Item Value Reference Range Interpretation Comme nts Lymphocytes # (Auto) (test c ode = 38940-1) 2.42 [facility] CenterAbsolute basophil ovbep2735-15-63 17:00:00* Test Item Value Reference Range Interpretation Comme nts Basophils # (Auto) (test cod e = 70015990) 0.03 [facility] CenterAbsolute NRBC nzbht1898-88-37 17:00:00* Test Item Value Reference Range Interpretation Comme nts Nucleated Red Blood Cells # (test code = 408548631) 0 [facility] CtrCT ABDOMEN PELVIS WO BNRFIOFT2131-89-46 00:27:38 Ordering Physician: LEIGH ROJO Clinical indication: [...] the spine.Multilevel lumbar central canal stenosis is present.[facility] HospitalComplete Metabolic Wiqto4085-15-84 23:13:34* Test Item Value Reference Range Interpretation Comme nts NA (test code = 4077794535) 136 mmol/L 135-145 K (test code = 6434672502) 3.7 mmol/L 3.5-5.0 CL (test code = 2333110420) 106 mmol/L 98-108 CO2 TOTAL (test code = 6931505104) 20 mmol/L 23-31 L AGAP (test code = 1847941975) 10 2-16 BUN (test code = 1986101459) 6 mg/dL 7-23 L GLUCOSE (test code = 5533845870) 149 mg/dL 70-110 H CREATININE (test code = 2160-0) 0.63 mg/dL 0.50-1.04 TOTAL BILI (test code = 5668270086) 0.3 mg/dL 0.1-1.1 CALCIUM (test code = 2450331434) 9.2 mg/dL 8.6-10.6 T PROTEIN (test code = 8428188737) 7.4 g/dL 6.3-8.2 ALBUMIN (test code = 7298471346) 4.3 g/dL 3.5-5.0 ALK PHOS (test code = 6081525466) 74 U/L 34-122 ALTv (test code = 1742-6) 20 U/L 5-35 AST(SGOT) (test code = 3239591385) 22 U/L 13-40 eGFR (test code = 51616-9) 111.6 mL/min/1.73m2 CKD-EPI eGFR (2020). Assuming creatinine has been stable day-to-day for at least three months, the eGFR indicates Category G1 (>= 90 mL/min/1.73 m2) Lab Interpretation (test code = 17803-3) Abnormal [facility] HospitalLipase, Mwlbe5927-12-99 23:12:53* Test Item Value Reference Range Interpretation Comme nts LIPASE (test code = 1118233188) 104 U/L 0-220 Lab Interpretation (test cod e = 85086-9) Normal [facility] HospitalPOCT Lfhe6236-46-25 23:01:00* Test Item Value Reference Range Interpretation Comme nts POCT PREG (test code = 1605) Negative On board controls acceptable with C Line (test code = 3574) Yes POCT PREG LOT # (test code = 3575) [id number] POCT PREG TEST DATE ( test code = 3576) Lab Interpretation (test cod e = 93511-8) Normal [facility] HospitalCBC with Fpzwhomyiqtc1351-72-24 23:00:31* Test Item Value Reference Range Interpretation [...] 33.0 g/dL 31.6-35.1 RDW-SD (test code = 84068-1) 45.5 fL 39.0-49.9 RDW-CV (test code = 788-0) 15.3 % 12.0-15.5 PLT (test code = 777-3) 370 166-358 H MPV (test code = 74652-0) 9.3 fL 9.5-12.9 L NRBC/100 WBC (test code = 6775179407) 0.0 0.0-10.0 NRBC x10^3 (test code = 9639589207) See_Comment [Automated Electric [employer] ge] The system which generated this result transmitted reference range: 10*3/?L. The reference range was not used to interpret this result as normal/abnormal. GRAN MAT (NEUT) % (test code = 770-8) 71.8 % IMM GRAN % (test code = 5668449036) 0.60 % LYMPH % (test code = 736-9) 20.9 % MONO % (test code = 5905-5) 4.9 % EOS % (test code = 713-8) 1.4 % BASO % (test code = 706-2) 0.4 % GRAN MAT x10^3(ANC) (test code = 3423202604) 9.75 10*3/uL 1.88-7.09 H IMM GRAN x10^3 (test code = 4344485909) 0.08 10*3/uL 0.00-0.06 H LYMPH x10^3 (test code = 731-0) 2.83 10*3/uL 1.32-3.29 MONO x10^3 (test code = 742-7) 0.66 10*3/uL 0.33-0.92 EOS x10^3 (test code = 711-2) 0.19 10*3/uL 0.03-0.39 BASO x10^3 (test code = 704-7) 0.05 10*3/uL 0.01-0.07 Lab Interpretation (test code = 56822-8) Abnormal [facility]BDOMEN PELVIS W UBZBFNMB9192-67-10 05:07:16ORDERING PHYSICIAN:OLIVIA MUSA CLINICAL INFORMATION: ? Abdominal [...] are clear. There are nosuspicious focal osseous lesions.[facility] Complete Metabolic Hixqj3649-58-49 04:38:59* Test Item Value Reference Range Interpretation Comme nts NA (test code = 3430824550) 138 mmol/L 135-145 K (test code = 1599024965) 3.7 mmol/L 3.5-5.0 CL (test code = 0499428292) 108 mmol/L 98-108 CO2 TOTAL (test code = 3011377279) 22 mmol/L 23-31 L AGAP (test code = 9963383520) 8 2-16 BUN (test code = 6685073064) 12 mg/dL 7-23 GLUCOSE (test code = 1777965924) 98 mg/dL 70-110 CREATININE (test code = 2160-0) 0.62 mg/dL 0.50-1.04 TOTAL BILI (test code = 5641824245) 0.4 mg/dL 0.1-1.1 CALCIUM (test code = 8292886465) 8.9 mg/dL 8.6-10.6 T PROTEIN (test code = 9343578064) 7.1 g/dL 6.3-8.2 ALBUMIN (test code = 0935825054) 3.8 g/dL 3.5-5.0 ALK PHOS (test code = 5396832758) 89 U/L 34-122 ALTv (test code = 1742-6) 17 U/L 5-35 AST(SGOT) (test code = 7005400455) 22 U/L 13-40 eGFR (test code = 18455-8) 112.8 mL/min/1.73m2 CKD-EPI eGFR (2020). Assuming creatinine has been stable day-to-day for at least three months, the eGFR indicates Category G1 (>= 90 mL/min/1.73 m2) Lab Interpretation (test code = 93788-5) [facility] [id number] 04:38:58* Test Item Value Reference Range Interpretation Comme nts LIPASE (test code = 5124741638) 136 U/L 0-220 Lab Interpretation (test cod e = 46944-9) [facility] with [id number] 04:19:14* Test Item Value Reference Range Interpretation [...] 32.2 g/dL 31.6-35.1 RDW-SD (test code = 10656-5) 50.2 fL 39.0-49.9 H RDW-CV (test code = 788-0) 17.3 % 12.0-15.5 H PLT (test code = 777-3) 377 166-358 H MPV (test code = 13767-4) 9.4 fL 9.5-12.9 L NRBC/100 WBC (test code = 0800114708) 0.0 0.0-10.0 NRBC x10^3 (test code = 8211446833) See_Comment [Automated messa ge] The system which generated this result transmitted reference range: 10*3/?L. The reference range was not used to interpret this result as normal/abnormal. GRAN MAT (NEUT) % (test code = 770-8) 65.3 % IMM GRAN % (test code = 4633023213) 0.40 % LYMPH % (test code = 736-9) 26.1 % MONO % (test code = 5905-5) 6.2 % EOS % (test code = 713-8) 1.6 % BASO % (test code = 706-2) 0.4 % GRAN MAT x10^3(ANC) (test code = 3203661341) 7.33 10*3/uL 1.88-7.09 H IMM GRAN x10^3 (test code = 5547605631) 0.04 10*3/uL 0.00-0.06 LYMPH x10^3 (test code = 731-0) 2.93 10*3/uL 1.32-3.29 MONO x10^3 (test code = 742-7) 0.70 10*3/uL 0.33-0.92 EOS x10^3 (test code = 711-2) 0.18 10*3/uL 0.03-0.39 BASO x10^3 (test code = 704-7) 0.05 10*3/uL 0.01-0.07 Lab Interpretation (test code = 88147-5) Abnormal [facility] [id number] 03:40:00* Test Item Value Reference Range Interpretation Comme nts POCT PREG (test code = 1605) Negative On board controls acceptable with C Line (test code = 3574) Yes POCT PREG LOT # (test code = 3575) [id number] POCT PREG TEST DATE ( test code = 3576) 2024-10-13 Lab Interpretation (test cod e = 81574-0) [facility] [id number] 04:35:04Ordering physician: ROBERTO RICHARDS INDICATION: Abdominal pain COMPARISON: CT of the abdomen and pelv is dated 03/09/2023 FINDINGS: Supine AP view of the abdomen and pelvis. There is no bowelobstruction or generalized constipation.[facility] [id number] 02:30:00* Test Item Value Reference Range Interpretation Comme nts POCT PREG (test code = 1605) Negative On board controls acceptable with C Line (test code = 3574) Yes POCT PREG LOT # (test code = 3575) [id number] POCT PREG TEST DATE ( test code = 3576) 2024-09-15 Lab Interpretation (test cod e = 13714-0) Normal [facility] WITH [id number] 00:05:06* Test Item Value Reference Range Interpretation [...] 34.2 g/dL 31.6-35.1 RDW-SD (test code = 71857-7) 41.5 fL 39.0-49.9 RDW-CV (test code = 788-0) 14.5 % 12.0-15.5 PLT (test code = 777-3) 384 See_Comment H [Automated messa ge] The system which generated this result transmitted reference range: 166 - 358 10*3/?L. The reference range was not used to interpret this result as normal/abnormal. MPV (test code = 95081-0) 9.6 fL 9.5-12.9 GRAN MAT (NEUT) % (test code = 770-8) 66.0 % IMM GRAN % (test code = 4196992913) 0.50 % LYMPH % (test code = 736-9) 27.4 % MONO % (test code = 5905-5) 4.6 % EOS % (test code = 713-8) 1.1 % BASO % (test code = 706-2) 0.4 % GRAN MAT x10^3(ANC) (test code = 6904664869) 7.96 10*3/uL 1.88-7.09 H IMM GRAN x10^3 (test code = 2873879666) 0.06 10*3/uL 0.00-0.06 LYMPH x10^3 (test code = 731-0) 3.30 10*3/uL 1.32-3.29 H MONO x10^3 (test code = 742-7) 0.56 10*3/uL 0.33-0.92 EOS x10^3 (test code = 711-2) 0.13 10*3/uL 0.03-0.39 BASO x10^3 (test code = 704-7) 0.05 10*3/uL 0.01-0.07 Lab Interpretation (test code = 91384-8) [facility] HospitalCOMP. METABOLIC PANEL (18780)2023-05-09 23:27:13* Test Item Value Reference Range Interpretation Comme nts NA (test code = 4639943249) 137 mmol/L 135-145 K (test code = 6526872269) 3.3 mmol/L 3.5-5.0 L CL (test code = 3549194670) 103 mmol/L 98-108 CO2 TOTAL (test code = 1544284820) 20 mmol/L 23-31 L AGAP (test code = 4148651175) 14 2-16 BUN (test code = 6656955408) 5 mg/dL 7-23 L GLUCOSE (test code = 6227136061) 146 mg/dL 70-110 H CREATININE (test code = 5262710637) 0.60 mg/dL 0.50-1.04 TOTAL BILI (test code = 0670220646) 0.3 mg/dL 0.1-1.1 CALCIUM (test code = 2273130279) 9.3 mg/dL 8.6-10.6 T PROTEIN (test code = 0312417979) 7.9 g/dL 6.3-8.2 ALBUMIN (test code = 9615452988) 4.4 g/dL 3.5-5.0 ALK PHOS (test code = 4546310514) 105 U/L 34-122 ALTv (test code = 1742-6) 38 U/L 5-35 H AST(SGOT) (test code = 5135488453) 21 U/L 13-40 eGFR (test code = 74782-9) 113.7 mL/min/1.73m2 CKD-EPI eGFR (2020). Assuming creatinine has been stable day-to-day for at least three months, the eGFR indicates Category G1 (>= 90 mL/min/1.73 m2) Lab Interpretation (test code = 69070-2) [facility] 23:27:13* Test Item Value Reference Range Interpretation Comme nts LIPASE (test code = 8376704055) 142 U/L 0-220 Lab Interpretation (test cod e = 71121-7) [facility]OLIC PANEL (66943)2023-04-30 23:41:47* Test Item Value Reference Range Interpretation Comme nts NA (test code = 7085366475) 139 mmol/L 135-145 K (test code = 8435415275) 3.3 mmol/L 3.5-5.0 L CL (test code = 7670455580) 105 mmol/L 98-108 CO2 TOTAL (test code = 0646289858) 20 mmol/L 23-31 L AGAP (test code = 9991200234) 14 2-16 BUN (test code = 7881885729) 6 mg/dL 7-23 L GLUCOSE (test code = 9511376767) 119 mg/dL 70-110 H CREATININE (test code = 6697514042) 0.59 mg/dL 0.50-1.04 TOTAL BILI (test code = 7976570971) 0.3 mg/dL 0.1-1.1 CALCIUM (test code = 4550009349) 9.7 mg/dL 8.6-10.6 T PROTEIN (test code = 0207089532) 7.6 g/dL 6.3-8.2 ALBUMIN (test code = 4063668687) 4.2 g/dL 3.5-5.0 ALK PHOS (test code = 4652105510) 78 U/L 34-122 ALTv (test code = 1742-6) 24 U/L 5-35 AST(SGOT) (test code = 7820184321) 24 U/L 13-40 eGFR (test code = 2049989710) 110.7 mL/min/1.73m2 DARWIN (test code = DARWIN) [...] imaging tests). Lab Interpretation (test code = 64588-8) Abnormal [facility] WITH [id number] 23:29:07* Test Item Value Reference Range Interpretation Comme nts WBC (test code = 6690-2) 11.56 See_Comment H [Automated Press About Us] The system which generated this result transmitted reference range: 4.30 - 11.10 10*3/?L. The reference range was not used to interpret this result as normal/abnormal. RBC (test code = 789-8) 5.02 See_Comment [[employer] AS[employer]] The system which generated this result transmitted [...] 33.7 g/dL 31.6-35.1 RDW-SD (test code = 61350-3) 41.5 fL 39.0-49.9 RDW-CV (test code = 788-0) 14.3 % 12.0-15.5 PLT (test code = 777-3) 335 See_Comment [[employer] ge] The system which generated this result transmitted reference range: 166 - 358 10*3/?L. The reference range was not used to interpret this result as normal/abnormal. MPV (test code = 81405-1) 9.7 fL 9.5-12.9 NRBC/100 WBC (test code = 9801829338) 0.0 See_Comment [Automated LAVEGO ssage] The system which generated this result transmitted reference range: 0.0 - 10.0 /100 WBCs. The reference range was not used to interpret this result as normal/abnormal. NRBC x10^3 (test code = 1918896260) See_Comment [[employer]] The system which generated this result transmitted reference range: 10*3/?L. The reference range was not used to interpret this result as normal/abnormal. GRAN MAT (NEUT) % (test code = 770-8) 65.7 % IMM GRAN % (test code = 1571994295) 0.50 % LYMPH % (test code = 736-9) 25.4 % MONO % (test code = 5905-5) 6.7 % EOS % (test code = 713-8) 1.2 % BASO % (test code = 706-2) 0.5 % GRAN MAT x10^3(ANC) (test code = 0586237624) 7.59 10*3/uL 1.88-7.09 H IMM GRAN x10^3 (test code = 0535798910) 0.06 10*3/uL 0.00-0.06 LYMPH x10^3 (test code = 731-0) 2.94 10*3/uL 1.32-3.29 MONO x10^3 (test code = 742-7) 0.77 10*3/uL 0.33-0.92 EOS x10^3 (test code = 711-2) 0.14 10*3/uL 0.03-0.39 BASO x10^3 (test code = 704-7) 0.06 10*3/uL 0.01-0.07 Lab Interpretation (test code = 21550-0) [facility]PO[facility] [id number] 22:59:00* Test Item Value Reference Range Interpretation Comme nts POCT PREG (test code = 1605) Negative On board controls acceptable with C Line (test code = 3574) Yes POCT PREG LOT # (test code = 3575) [id number] POCT PREG TEST DATE ( test code = 3576) 07/10/2024 Lab Interpretation (test cod e = 29230-4) Normal [facility] HospitalTROPONIN [id number] 02:36:34* Test Item Value Reference Range Interpretation Comme nts TROPONIN I (test code = 1858341146) 0.000 ng/mL <=0.034 DARWIN (test code = [...] of biotin. Lab Interpretation (test code = 88844-2) Normal [facility] HospitalN-[facility]MINAL [id number] 02:34:17* Test Item Value Reference Range Interpretation Comme nts NT-proBNP (test code = 37065-4) 40 pg/mL <=125 Lab Interpretation (test cod e = 48427-5) Normal [facility] HospitalACTIVATED PARTIAL THRMPLAS [id number] 02:33:37* Test Item Value Reference Range Interpretation Comme [facility] APTT Patient (test code = 3173-2) 25 See_Comment [Automated message] The system which generated this result transmitted reference range: 23 - 38 Seconds. The reference range was not used to interpret this result as normal/abnormal. DARWIN (test code = DARWIN) The [facility] patient population mean normal value for aPTT is 30 seconds. Lab Interpretation (test code = 04106-0) Normal [facility] HospitalPROTHROMBIN TIME / [id number] 02:31:36* Test Item Value Reference Range Interpretation Comme [facility] PROTIME PATIENT (test code = 5964-2) [...] the indications. Lab Interpretation (test code = 80288-2) Normal [facility]COMP[facility] METABOLIC PANEL (48256)2023-04-17 02:24:56* Test Item Value Reference Range Interpretation Comme [facility] NA (test code = 9528361513) 142 mmol/L 135-145 K (test code = 5867308353) 3.1 mmol/L 3.5-5.0 L CL (test code = 4662643250) 108 mmol/L 98-108 CO2 TOTAL (test code = 0389496948) 20 mmol/L 23-31 L AGAP (test code = 1411306066) 14 2-16 BUN (test code = 9230547495) 4 mg/dL 7-23 L GLUCOSE (test code = 6369934258) 107 mg/dL 70-110 CREATININE (test code = 0727743453) 0.61 mg/dL 0.50-1.04 TOTAL BILI (test code = 2091513718) 0.2 mg/dL 0.1-1.1 CALCIUM (test code = 8114513086) 9.1 mg/dL 8.6-10.6 T PROTEIN (test code = 0114330199) 7.0 g/dL 6.3-8.2 ALBUMIN (test code = 7475504391) 3.9 g/dL 3.5-5.0 ALK PHOS (test code = 7447452484) 69 U/L 34-122 ALTv (test code = 1742-6) 21 U/L 5-35 AST(SGOT) (test code = 6104326375) 21 U/L 13-40 eGFR (test code = 6441136936) 106.5 mL/min/1.73m2 DARWIN (test code = DARWIN) [...] imaging tests). Lab Interpretation (test code = 61371-8) [facility] 02:24:56* Test Item Value Reference Range Interpretation Comme nts LIPASE (test code = 5420716157) 104 U/L 0-220 Lab Interpretation (test cod e = 72398-6) Normal [facility] WITH [id number] 02:13:31* Test Item Value Reference Range Interpretation [...] 34.5 g/dL 31.6-35.1 RDW-SD (test code = 63303-4) 39.1 fL 39.0-49.9 RDW-CV (test code = 788-0) 13.5 % 12.0-15.5 PLT (test code = 777-3) 324 See_Comment [Automated messa ge] The system which generated this result transmitted reference range: 166 - 358 10*3/?L. The reference range was not used to interpret this result as normal/abnormal. MPV (test code = 66217-7) 9.3 fL 9.5-12.9 L NRBC/100 WBC (test code = 6034866279) 0.0 See_Comment [Automated [employer]AVE[employer] ssage] The system which generated this result transmitted reference range: 0.0 - 10.0 /100 WBCs. The reference range was not used to interpret this result as normal/abnormal. NRBC x10^3 (test code = 3291058606) See_Comment [Automated messa ge] The system which generated this result transmitted reference range: 10*3/?L. The reference range was not used to interpret this result as normal/abnormal. GRAN MAT (NEUT) % (test code = 770-8) 65.2 % IMM GRAN % (test code = 3745422840) 0.40 % LYMPH % (test code = 736-9) 26.5 % MONO % (test code = 5905-5) 5.8 % EOS % (test code = 713-8) 1.7 % BASO % (test code = 706-2) 0.4 % GRAN MAT x10^3(ANC) (test code = 2829203952) 7.01 10*3/uL 1.88-7.09 IMM GRAN x10^3 (test code = 6680868053) 0.04 10*3/uL 0.00-0.06 LYMPH x10^3 (test code = 731-0) 2.85 10*3/uL 1.32-3.29 MONO x10^3 (test code = 742-7) 0.62 10*3/uL 0.33-0.92 EOS x10^3 (test code = 711-2) 0.18 10*3/uL 0.03-0.39 BASO x10^3 (test code = 704-7) 0.04 10*3/uL 0.01-0.07 Lab Interpretation (test code = 01854-6) [facility]PO[facility] [id number] 02:11:00* Test Item Value Reference Range Interpretation Comme nts POCT PREG (test code = 1605) Negative On board controls acceptable with C Line (test code = 3574) Yes POCT PREG LOT # (test code = 3575 429026 POCT PREG TEST DATE ( test code = 3576) 2024-09-04 Lab Interpretation (test cod e = 46955-3) Normal [facility] HospitalTROP[facility]IN [id number] 23:59:14* Test Item Value Reference Range Interpretation Comme nts TROPONIN I (test code = 9036631740) 0.000 ng/mL <=0.034 DARWIN (test code = [...] of biotin. Lab Interpretation (test code = 75691-9) Normal [facility]. METABOLIC PANEL (86471)2023-04-08 23:47:52* Test Item Value Reference Range Interpretation Comme nts NA (test code = 3037985354) 138 mmol/L 135-145 K (test code = 6604306041) 3.4 mmol/L 3.5-5.0 L CL (test code = 2325782137) 103 mmol/L 98-108 CO2 TOTAL (test code = 2640674970) 22 mmol/L 23-31 L AGAP (test code = 7027137201) 13 2-16 BUN (test code = 5448053646) 6 mg/dL 7-23 L GLUCOSE (test code = 8284963693) 106 mg/dL 70-110 CREATININE (test code = 9423672210) 0.91 mg/dL 0.50-1.04 TOTAL BILI (test code = 3019664691) 0.2 mg/dL 0.1-1.1 CALCIUM (test code = 4177192664) 8.7 mg/dL 8.6-10.6 T PROTEIN (test code = 0002534146) 7.4 g/dL 6.3-8.2 ALBUMIN (test code = 1125876336) 4.1 g/dL 3.5-5.0 ALK PHOS (test code = 9358769711) 71 U/L 34-122 ALTv (test code = 1742-6) 28 U/L 5-35 AST(SGOT) (test code = 9851569486) 28 U/L 13-40 eGFR (test code = 3408627005) 67.2 mL/min/1.73m2 DARWIN (test code = DARWIN) [...] imaging tests). Lab Interpretation (test code = 70551-8) [facility] HospitalMAGNESIUM2023-10-02 23:47:52* Test Item Value Reference Range Interpretation Comme nts MAGNESIUM (test code = 2067498658) 2.0 mg/dL 1.7-2.4 Lab Interpretation (test cod e = 20551-8) [facility]20[facility] 23:47:52* Test Item Value Reference Range Interpretation Comme nts LIPASE (test code = 6693986686) 74 U/L 0-220 Lab Interpretation (test cod e = 43755-5) Normal [facility] WITH [id number] 23:36:30* Test Item Value Reference Range Interpretation Comme nts WBC (test code = 6690-2) 9.95 See_Comment [Automated [employer] About Us] The system which generated this result transmitted [...] 34.5 g/dL 31.6-35.1 RDW-SD (test code = 91501-1) 39.3 fL 39.0-49.9 RDW-CV (test code = 788-0) 13.6 % 12.0-15.5 PLT (test code = 777-3) 305 See_Comment [Automated messa ge] The system which generated this result transmitted reference range: 166 - 358 10*3/?L. The reference range was not used to interpret this result as normal/abnormal. MPV (test code = 94473-2) 9.6 fL 9.5-12.9 NRBC/100 WBC (test code = 3093514474) 0.0 See_Comment [Automated LAVEGO ssage] The system which generated this result transmitted reference range: 0.0 - 10.0 /100 WBCs. The reference range was not used to interpret this result as normal/abnormal. NRBC x10^3 (test code = 0124850790) See_Comment [Automated messa ge] The system which generated this result transmitted reference range: 10*3/?L. The reference range was not used to interpret this result as normal/abnormal. GRAN MAT (NEUT) % (test code = 770-8) 66.5 % IMM GRAN % (test code = 9026647448) 0.30 % LYMPH % (test code = 736-9) 25.3 % MONO % (test code = 5905-5) 5.2 % EOS % (test code = 713-8) 2.3 % BASO % (test code = 706-2) 0.4 % GRAN MAT x10^3(ANC) (test code = 1496730368) 6.61 10*3/uL 1.88-7.09 IMM GRAN x10^3 (test code = 1772589289) 0.03 10*3/uL 0.00-0.06 LYMPH x10^3 (test code = 731-0) 2.52 10*3/uL 1.32-3.29 MONO x10^3 (test code = 742-7) 0.52 10*3/uL 0.33-0.92 EOS x10^3 (test code = 711-2) 0.23 10*3/uL 0.03-0.39 BASO x10^3 (test code = 704-7) 0.04 10*3/uL 0.01-0.07 Lab Interpretation (test code = 05775-9) Abnormal [facility] [id number] 02:51:00* Test Item Value Reference Range Interpretation Comme nts POCT PREG (test code = 1605) Negative On board controls acceptable with C Line (test code = 3574) Yes POCT PREG LOT # (test code = 3575) [id number] POCT PREG TEST DATE ( test code = 3576) 07/10/2024 Lab Interpretation (test cod e = 20618-9) Normal [facility] [id number] 03:26:00* Test Item Value Reference Range Interpretation Comme nts POCT PREG (test code = 1605) Negative On board controls acceptable with C Line (test code = 3574) Yes POCT PREG LOT # (test code = 3575) [id number] POCT PREG TEST DATE ( test code = 3576) Lab Interpretation (test cod e = 98444-9) [facility] 22:35:38* Test Item Value Reference Range Interpretation Comme nts LIPASE (test code = 2067825229) 2049 U/L 0-220 H Lab Interpretation (test cod e = 61569-8) [facility] WITH [id number] 22:30:10* Test Item Value Reference Range Interpretation [...] 34.6 g/dL 31.6-35.1 RDW-SD (test code = 81704-1) 42.7 fL 39.0-49.9 RDW-CV (test code = 788-0) 14.6 % 12.0-15.5 PLT (test code = 777-3) 331 See_Comment [Automated messa ge] The system which generated this result transmitted reference range: 166 - 358 10*3/?L. The reference range was not used to interpret this result as normal/abnormal. MPV (test code = 96461-9) 9.7 fL 9.5-12.9 NRBC/100 WBC (test code = 1454717253) 0.0 See_Comment [Automated LAVE[employer] ssage] The system which generated this result transmitted reference range: 0.0 - 10.0 /100 WBCs. The reference range was not used to interpret this result as normal/abnormal. NRBC x10^3 (test code = 0154336461) See_Comment [Automated messa ge] The system which generated this result transmitted reference range: 10*3/?L. The reference range was not used to interpret this result as normal/abnormal. GRAN MAT (NEUT) % (test code = 770-8) 65.7 % IMM GRAN % (test code = 7209843335) 0.50 % LYMPH % (test code = 736-9) 26.5 % MONO % (test code = 5905-5) 5.4 % EOS % (test code = 713-8) 1.5 % BASO % (test code = 706-2) 0.4 % GRAN MAT x10^3(ANC) (test code = 6616135402) 8.05 10*3/uL 1.88-7.09 H IMM GRAN x10^3 (test code = 3939179584) 0.06 10*3/uL 0.00-0.06 LYMPH x10^3 (test code = 731-0) 3.24 10*3/uL 1.32-3.29 MONO x10^3 (test code = 742-7) 0.66 10*3/uL 0.33-0.92 EOS x10^3 (test code = 711-2) 0.18 10*3/uL 0.03-0.39 BASO x10^3 (test code = 704-7) 0.05 10*3/uL 0.01-0.07 Lab Interpretation (test code = 10540-8) [facility]OL[facility] (93079)2023-02-15 22:27:47* Test Item Value Reference Range Interpretation Comme nts NA (test code = 1106763218) 138 mmol/L 135-145 K (test code = 7963843191) 3.7 mmol/L 3.5-5.0 CL (test code = 3478225264) 105 mmol/L 98-108 CO2 TOTAL (test code = 0927978096) 23 mmol/L 23-31 AGAP (test code = 2019401911) 10 2-16 BUN (test code = 3423253625) 6 mg/dL 7-23 L GLUCOSE (test code = 1586363295) 92 mg/dL 70-110 CREATININE (test code = 1713395880) 0.77 mg/dL 0.50-1.04 TOTAL BILI (test code = 5142524731) 0.7 mg/dL 0.1-1.1 CALCIUM (test code = 7496074296) 9.0 mg/dL 8.6-10.6 T PROTEIN (test code = 3088988513) 7.5 g/dL 6.3-8.2 ALBUMIN (test code = 5996404055) 4.0 g/dL 3.5-5.0 ALK PHOS (test code = 1287056355) 101 U/L 34-122 ALTv (test code = 1742-6) 25 U/L 5-35 AST(SGOT) (test code = 5580327896) 36 U/L 13-40 eGFR (test code = 5595540245) 81.8 mL/min/1.73m2 DARWIN (test code = DARWIN) [...] imaging tests). Lab Interpretation (test code = 77673-9) [facility]D-[id number] 20:56:28* Test Item Value Reference Range Interpretation Comments D-DIMER (test code = 0966303283) 0.44 See_Comment H [Automated message] The system [...] a diagnosis. Lab Interpretation (test code = 89006-8) Abnormal [facility] [id number] 01:15:16* Test Item Value Reference Range Interpretation Comments TROPONIN I (test code = 3453896270) 0.001 ng/mL See_Comment [Automated message] The system [...] of biotin. Lab Interpretation (test code = 54631-5) Normal [facility] [id number] 22:52:31* Test Item Value Reference Range Interpretation Comments TROPONIN I (test code = 1860557965) 0.001 ng/mL See_Comment [Automated message] The system [...] of biotin. Lab Interpretation (test code = 38904-9) [facility] [id number] 22:49:33* Test Item Value Reference Range Interpretation Comme nts NT-proBNP (test code = 9692734860) 145 pg/mL See_Comment H [Automated message] The system which generated this result transmitted reference range: <=125. The reference range was not used to interpret this result as normal/abnormal. DARWIN (test code = DARWIN) Biotin has been reported to cause a negative bias, interpret results relative to patient's use of biotin. Lab Interpretation (test code = 64089-2) Abnormal [facility] METABOLIC PANEL (NA, K, CL, CO2, GLUCOSE, BUN, CREATININE, CA)2022-01-09 22:40:32* Test Item Value Reference Range Interpretation Comme nts NA (test code = 1937826981) 142 mmol/L 135-145 K (test code = 1419022056) 3.3 mmol/L 3.5-5.0 L CL (test code = 9744524215) 109 mmol/L 98-108 H CO2 TOTAL (test code = 8244122036) 22 mmol/L 23-31 L AGAP (test code = 9358898109) 2-16 BUN (test code = 5768581697) 9 mg/dL 7-23 GLUCOSE (test code = 7096798803) 116 mg/dL 70-110 H CREATININE (test code = 6101605576) 0.69 mg/dL 0.50-1.04 CALCIUM (test code = 5212648078) 9.2 mg/dL 8.6-10.6 eGFR (test code = 7656373071) mL/min/1.73m2 DARWIN (test code = DARWIN) Association [...] imaging tests). Lab Interpretation (test code = 23399-1) Abnormal [facility] WITH [id number] 22:29:09* Test Item Value Reference Range Interpretation Comme nts WBC (test code = 6690-2) See_Comment [[employer]] The system which generated this result transmitted reference range: 4.30 - 11.10 10*3/?L. The reference range was not used to interpret this result as normal/abnormal. RBC (test code = 789-8) See_Comment [[employer]] The system which generated this result transmitted [...] 34.4 g/dL 31.6-35.1 RDW-SD (test code = 65229-0) 40.7 fL 39.0-49.9 RDW-CV (test code = 788-0) 14.1 % 12.0-15.5 PLT (test code = 777-3) See_Comment [[employer]] The system which generated this result transmitted reference range: 166 - 358 10*3/?L. The reference range was not used to interpret this result as normal/abnormal. MPV (test code = 17103-9) 9.6 fL 9.5-12.9 NRBC/100 WBC (test code = 7576848209) See_Comment [Automated [employer] ssage] The system which generated this result transmitted reference range: 0.0 - 10.0 /100 WBCs. The reference range was not used to interpret this result as normal/abnormal. NRBC x10^3 (test code = 0524778578) <0.01 See_Comment [[employer]] The system which generated this result transmitted reference range: 10*3/?L. The reference range was not used to interpret this result as normal/abnormal. GRAN MAT (NEUT) % (test code = 770-8) 54.7 % IMM GRAN % (test code = 1562097408) 0.40 % LYMPH % (test code = 736-9) 33.8 % MONO % (test code = 5905-5) 7.1 % EOS % (test code = 713-8) 3.3 % BASO % (test code = 706-2) 0.7 % GRAN MAT x10^3(ANC) (test code = 6127613808) 4.87 10*3/uL 1.88-7.09 IMM GRAN x10^3 (test code = 6244530445) 0.04 10*3/uL 0.00-0.06 LYMPH x10^3 (test code = 731-0) 3.01 10*3/uL 1.32-3.29 MONO x10^3 (test code = 742-7) 0.63 10*3/uL 0.33-0.92 EOS x10^3 (test code = 711-2) 0.29 10*3/uL 0.03-0.39 BASO x10^3 (test code = 704-7) 0.06 10*3/uL 0.01-0.07 Lab Interpretation (test code = 50532-7) [facility] [id number] 06:45:45* Test Item Value Reference Range Interpretation Comments TROPONIN I (test code = 0662854604) 0.000 ng/mL See_Comment [Automated message] The system [...] of biotin. Lab Interpretation (test code = 92980-4) [facility] [id number] 05:00:55 * Test Item Value Reference Range Interpretation Comme nts TSH (test code = 1656208603) See_Comment [Automated messa ge] The system which generated this result transmitted reference range: 0.45 - 4.70 mIU/L. The reference range was not used to interpret this result as normal/abnormal. Lab Interpretation (test code = 08685-7) [facility] [id number] 04:47:50* Test Item Value Reference Range Interpretation Comme nts FREE T4 (test code = 1413951692) See_Comment [Automated messa ASOCS] The system which generated this result transmitted reference range: 0.78 - 2.20 ng/dL:. The reference range was not used to interpret this result as normal/abnormal. Lab Interpretation (test code = 23708-6) [facility] [id number] 04:47:10* Test Item Value Reference Range Interpretation Comme nts FREE T3 (test code = 5247069713) 4.37 pg/mL 2.77-5.27 Lab Interpretation (test cod e = 85000-7) [facility] [id number] 04:42:07* Test Item Value Reference Range Interpretation Comments TROPONIN I (test code = 9323799709) 0.001 ng/mL See_Comment [Automated message] The system [...] of biotin. Lab Interpretation (test code = 41856-1) Normal [facility]. METABOLIC PANEL (64702)2021-12-14 04:30:28* Test Item Value Reference Range Interpretation Comme nts NA (test code = 3840188953) 141 mmol/L 135-145 K (test code = 7545268334) 3.6 mmol/L 3.5-5.0 CL (test code = 0971981779) 111 mmol/L 98-108 H CO2 TOTAL (test code = 0675313723) 19 mmol/L 23-31 L AGAP (test code = 2635957505) 2-16 BUN (test code = 9642043000) 15 mg/dL 7-23 GLUCOSE (test code = 2432647106) 113 mg/dL 70-110 H CREATININE (test code = 2732008198) 1.05 mg/dL 0.50-1.04 H TOTAL BILI (test code = 5977610521) 0.2 mg/dL 0.1-1.1 CALCIUM (test code = 2877322702) 9.8 mg/dL 8.6-10.6 T PROTEIN (test code = 5440234233) 6.8 g/dL 6.3-8.2 ALBUMIN (test code = 7679383895) 4.2 g/dL 3.5-5.0 ALK PHOS (test code = 7544127682) 73 U/L 34-122 ALTv (test code = 1742-6) 16 U/L 5-35 AST(SGOT) (test code = 5140374451) 19 U/L 13-40 eGFR (test code = 7798229403) mL/min/1.73m2 DARWIN (test code = DARWIN) Association [...] imaging tests). Lab Interpretation (test code = 06027-6) [facility] 04:29:48* Test Item Value Reference Range Interpretation Comme nts LIPASE (test code = 2492236556) 225 U/L 0-220 H Lab Interpretation (test cod e = 90515-6) [facility]PO[facility] [id number] 04:20:00* Test Item Value Reference Range Interpretation Comme nts POCT PREG (test code = 1605) negative On board controls acceptable with C Line (test code = 3574) present POCT PREG LOT # (test code = 3575) [id number] POCT PREG TEST DATE ( test code = 3576) 2023-05-07 Lab Interpretation (test cod e = 78154-3) [facility]CBC WITH [id number] 04:01:25* Test Item Value Reference Range Interpretation Comme nts WBC (test code = 6690-2) See_Comment [[employer] ASOCS] The system which generated this result transmitted reference range: 4.30 - 11.10 10*3/?L. The reference range was not used to interpret this result as normal/abnormal. RBC (test code = 789-8) See_Comment H [[employer] ASOCS] The system which generated this result transmitted [...] 34.3 g/dL 31.6-35.1 RDW-SD (test code = 42229-6) 39.5 fL 39.0-49.9 RDW-CV (test code = 788-0) 13.6 % 12.0-15.5 PLT (test code = 777-3) See_Comment [Automated messa ge] The system which generated this result transmitted reference range: 166 - 358 10*3/?L. The reference range was not used to interpret this result as normal/abnormal. MPV (test code = 95565-8) 9.9 fL 9.5-12.9 NRBC/100 WBC (test code = 6991713849) See_Comment [Automated [employer] ssage] The system which generated this result transmitted reference range: 0.0 - 10.0 /100 WBCs. The reference range was not used to interpret this result as normal/abnormal. NRBC x10^3 (test code = 9555672430) <0.01 See_Comment [Automated messa ge] The system which generated this result transmitted reference range: 10*3/?L. The reference range was not used to interpret this result as normal/abnormal. GRAN MAT (NEUT) % (test code = 770-8) 51.5 % IMM GRAN % (test code = 9527105405) 0.50 % LYMPH % (test code = 736-9) 35.8 % MONO % (test code = 5905-5) 9.4 % EOS % (test code = 713-8) 2.2 % BASO % (test code = 706-2) 0.6 % GRAN MAT x10^3(ANC) (test code = 4574688187) 5.37 10*3/uL 1.88-7.09 IMM GRAN x10^3 (test code = 9161935186) 0.05 10*3/uL 0.00-0.06 LYMPH x10^3 (test code = 731-0) 3.73 10*3/uL 1.32-3.29 H MONO x10^3 (test code = 742-7) 0.98 10*3/uL 0.33-0.92 H EOS x10^3 (test code = 711-2) 0.23 10*3/uL 0.03-0.39 BASO x10^3 (test code = 704-7) 0.06 10*3/uL 0.01-0.07 Lab Interpretation (test code = 25494-0) Abnormal [facility] [id number] 04:04:13* Test Item Value Reference Range Interpretation Comments TROPONIN I (test code = 1440850777) 0.001 ng/mL See_Comment [Automated message] The system [...] of biotin. Lab Interpretation (test code = 08762-5) [facility]PO[facility] [id number] 02:56:00* Test Item Value Reference Range Interpretation Comme nts POCT PREG (test code = 1605) negative On board controls acceptable with C Line (test code = 3574) present POCT PREG LOT # (test code = 3575) [id number] POCT PREG TEST DATE ( test code = 3576) 2023-04-06 Lab Interpretation (test cod e = 10137-9) [facility]TR[facility] [id number] 02:15:30* Test Item Value Reference Range Interpretation Comments TROPONIN I (test code = 8045242882) 0.000 ng/mL See_Comment [Automated message] The system [...] of biotin. Lab Interpretation (test code = 87392-2) Normal [facility]N-TERMINAL [id number] 02:12:14* Test Item Value Reference Range Interpretation Comme nts NT-proBNP (test code = 5099359721) 109 pg/mL See_Comment [Automated message] The system which generated this result transmitted reference range: <=125. The reference range was not used to interpret this result as normal/abnormal. DARWIN (test code = DARWIN) Biotin has been reported to cause a negative bias, interpret results relative to patient's use of biotin. Lab Interpretation (test code = 14446-6) [facility] MET[facility]OLIC PANEL (72106)2021-11-12 02:04:12* Test Item Value Reference Range Interpretation Comme nts NA (test code = 2853093957) 140 mmol/L 135-145 K (test code = 7497673559) 4.0 mmol/L 3.5-5.0 CL (test code = 0383971542) 111 mmol/L 98-108 H CO2 TOTAL (test code = 2878254322) 17 mmol/L 23-31 L AGAP (test code = 3952243696) 2-16 BUN (test code = 6764184307) 9 mg/dL 7-23 GLUCOSE (test code = 5847014622) 105 mg/dL 70-110 CREATININE (test code = 6944960356) 0.72 mg/dL 0.50-1.04 TOTAL BILI (test code = 4521246500) 0.4 mg/dL 0.1-1.1 CALCIUM (test code = 2156126555) 9.3 mg/dL 8.6-10.6 T PROTEIN (test code = 1892075978) 6.6 g/dL 6.3-8.2 ALBUMIN (test code = 6254952359) 4.0 g/dL 3.5-5.0 ALK PHOS (test code = 5986176168) 70 U/L 34-122 ALTv (test code = 1742-6) 19 U/L 5-35 AST(SGOT) (test code = 7911107721) 21 U/L 13-40 eGFR (test code = 6075806980) mL/min/1.73m2 DARWIN (test code = DARWIN) Association [...] imaging tests). Lab Interpretation (test code = 54119-0) [facility] 02:03:32* Test Item Value Reference Range Interpretation Comme nts LIPASE (test code = 1594977537) 173 U/L 0-220 Lab Interpretation (test cod e = 90481-3) [facility] HospitalCB WITH [id number] 01:43:53* Test Item Value Reference Range Interpretation Comme nts WBC (test code = 6690-2) See_Comment [[employer]] The system which generated this result transmitted [...] 33.7 g/dL 31.6-35.1 RDW-SD (test code = 55376-9) 41.3 fL 39.0-49.9 RDW-CV (test code = 788-0) 14.3 % 12.0-15.5 PLT (test code = 777-3) See_Comment [Automated messa ge] The system which generated this result transmitted reference range: 166 - 358 10*3/?L. The reference range was not used to interpret this result as normal/abnormal. MPV (test code = 01578-8) 9.7 fL 9.5-12.9 NRBC/100 WBC (test code = 0685111156) See_Comment [Automated [employer] ssage] The system which generated this result transmitted reference range: 0.0 - 10.0 /100 WBCs. The reference range was not used to interpret this result as normal/abnormal. NRBC x10^3 (test code = 4446888225) <0.01 See_Comment [Automated messa ge] The system which generated this result transmitted reference range: 10*3/?L. The reference range was not used to interpret this result as normal/abnormal. GRAN MAT (NEUT) % (test code = 770-8) 62.6 % IMM GRAN % (test code = 6357181517) 0.50 % LYMPH % (test code = 736-9) 27.0 % MONO % (test code = 5905-5) 6.5 % EOS % (test code = 713-8) 2.9 % BASO % (test code = 706-2) 0.5 % GRAN MAT x10^3(ANC) (test code = 9015586544) 6.30 10*3/uL 1.88-7.09 IMM GRAN x10^3 (test code = 9915141462) 0.05 10*3/uL 0.00-0.06 LYMPH x10^3 (test code = 731-0) 2.71 10*3/uL 1.32-3.29 MONO x10^3 (test code = 742-7) 0.65 10*3/uL 0.33-0.92 EOS x10^3 (test code = 711-2) 0.29 10*3/uL 0.03-0.39 BASO x10^3 (test code = 704-7) 0.05 10*3/uL 0.01-0.07 Lab Interpretation (test code = 72962-0) [facility]PO[facility] [id number] 02:21:00* Test Item Value Reference Range Interpretation Comme nts POCT PREG (test code = 1605) Negative On board controls acceptable with C Line (test code = 3574) Present Lab Interpretation (test cod e = 99688-4) [facility] HospitalComplete Metabolic [id number] 02:05:50* Test Item Value Reference Range Interpretation Comme nts NA (test code = 9070782215) 137 mmol/L 135-145 K (test code = 2161964345) 3.9 mmol/L 3.5-5.0 CL (test code = 1232956351) 109 mmol/L 98-108 H CO2 TOTAL (test code = 9061942571) 19 mmol/L 23-31 L AGAP (test code = 5931234869) 2-16 BUN (test code = 6817015870) 10 mg/dL 7-23 GLUCOSE (test code = 6178335623) 101 mg/dL 70-110 CREATININE (test code = 2530650693) 0.80 mg/dL 0.50-1.04 TOTAL BILI (test code = 2484688459) 0.3 mg/dL 0.1-1.1 CALCIUM (test code = 8036903778) 8.8 mg/dL 8.6-10.6 T PROTEIN (test code = 0547348215) 6.6 g/dL 6.3-8.2 ALBUMIN (test code = 6460469618) 4.0 g/dL 3.5-5.0 ALK PHOS (test code = 2124659662) 71 U/L 34-122 ALTv (test code = 1742-6) 18 U/L 5-35 AST(SGOT) (test code = 9538577278) 20 U/L 13-40 eGFR (test code = 8477055664) mL/min/1.73m2 DARWIN (test code = DARWIN) Association [...] imaging tests). Lab Interpretation (test code = 21770-5) [facility]normal [facility] BranchLip[facility], [id number] 02:05:25* Test Item Value Reference Range Interpretation Comme nts LIPASE (test code = 7897662808) 96 U/L 0-220 Lab Interpretation (test cod e = 45859-9) Normal [facility] with Rdwksbdiwuxd2202-81-47 01:53:06* Test Item Value Reference Range Interpretation [...] 34.3 g/dL 31.6-35.1 RDW-SD (test code = 24567-5) 40.5 fL 39.0-49.9 RDW-CV (test code = 788-0) 14.4 % 12.0-15.5 PLT (test code = 777-3) See_Comment [Automated messa ge] The system which generated this result transmitted reference range: 166 - 358 10*3/?L. The reference range was not used to interpret this result as normal/abnormal. MPV (test code = 18000-7) 9.4 fL 9.5-12.9 L NRBC/100 WBC (test code = 9761471584) See_Comment [Automated [employer] ssage] The system which generated this result transmitted reference range: 0.0 - 10.0 /100 WBCs. The reference range was not used to interpret this result as normal/abnormal. NRBC x10^3 (test code = 8803650770) <0.01 See_Comment [Automated messa ge] The system which generated this result transmitted reference range: 10*3/?L. The reference range was not used to interpret this result as normal/abnormal. GRAN MAT (NEUT) % (test code = 770-8) 59.8 % IMM GRAN % (test code = 9996179017) 0.40 % LYMPH % (test code = 736-9) 31.0 % MONO % (test code = 5905-5) 6.3 % EOS % (test code = 713-8) 2.0 % BASO % (test code = 706-2) 0.5 % GRAN MAT x10^3(ANC) (test code = 6573384328) 6.73 10*3/uL 1.88-7.09 IMM GRAN x10^3 (test code = 8872258820) 0.05 10*3/uL 0.00-0.06 LYMPH x10^3 (test code = 731-0) 3.50 10*3/uL 1.32-3.29 H MONO x10^3 (test code = 742-7) 0.71 10*3/uL 0.33-0.92 EOS x10^3 (test code = 711-2) 0.23 10*3/uL 0.03-0.39 BASO x10^3 (test code = 704-7) 0.06 10*3/uL 0.01-0.07 Lab Interpretation (test code = 15231-0) Abnormal [facility] Nesb0753-84-76 01:45:00* Test Item Value Reference Range Interpretation Comme nts POCT PREG (test code = 1605) negatibe On board controls acceptable with C Line (test code = 3574) present POCT PREG LOT # (test code = 3575) [id number] POCT PREG TEST DATE ( test code = 3576) 09/04/2022 Lab Interpretation (test cod e = 86534-6) Normal [facility] [id number] 06:35:00* Test Item Value Reference Range Interpretation Comme nts POCT PREG (test code = 1605) negative On board controls acceptable with C Line (test code = 3574) present POCT PREG LOT # (test code = 3575) [id number] POCT PREG TEST DATE ( test code = 3576) Lab Interpretation (test cod e = 14474-6) [facility]TR[facility] [id number] 09:09:55* Test Item Value Reference Range Interpretation Comments TROPONIN I (test code = 4193949984) 0.001 ng/mL See_Comment [Automated message] The system [...] of biotin. Lab Interpretation (test code = 87138-6) [facility] HospitalD-VNLUV4910-48-48 07:23:51* Test Item Value Reference Range Interpretation Comments D-DIMER (test code = 6922774775) See_Comment [Automated message] The system which generated [...] a diagnosis. Lab Interpretation (test code = 52274-4) [facility]21[facility] 06:11:26* Test Item Value Reference Range Interpretation Comme nts LIPASE (test code = 3847561600) 155 U/L 0-220 Lab Interpretation (test cod e = 20302-9) [facility]TR[facility] [id number] 06:06:05* Test Item Value Reference Range Interpretation Comments TROPONIN I (test code = 9483743004) 0.002 ng/mL See_Comment [Automated message] The system [...] of biotin. Lab Interpretation (test code = 41948-8) Normal [facility]N-TERMINAL [id number]-LJZ3723-48-21 06:03:04* Test Item Value Reference Range Interpretation Comme nts NT-proBNP (test code = 0460141599) 19 pg/mL See_Comment [Automated message] The system which generated this result transmitted reference range: <=125. The reference range was not used to interpret this result as normal/abnormal. DARWIN (test code = DARWIN) Biotin has been reported to cause a negative bias, interpret results relative to patient's use of biotin. Lab Interpretation (test code = 08155-3) [facility]COMP[facility] METABOLIC PANEL (43710)2021-05-28 05:54:25* Test Item Value Reference Range Interpretation Comme nts NA (test code = 1936157000) 136 mmol/L 135-145 K (test code = 6824718706) 3.2 mmol/L 3.5-5.0 L CL (test code = 3970458458) 109 mmol/L 98-108 H CO2 TOTAL (test code = 1708547322) 16 mmol/L 23-31 L AGAP (test code = 4098002268) 2-16 BUN (test code = 3055035245) 11 mg/dL 7-23 GLUCOSE (test code = 3223124107) 144 mg/dL 70-110 H CREATININE (test code = 8250634154) 0.84 mg/dL 0.50-1.04 TOTAL BILI (test code = 8737522695) 0.2 mg/dL 0.1-1.1 CALCIUM (test code = 8786936560) 9.4 mg/dL 8.6-10.6 T PROTEIN (test code = 5027666740) 6.9 g/dL 6.3-8.2 ALBUMIN (test code = 5463504727) 3.9 g/dL 3.5-5.0 ALK PHOS (test code = 2415766080) 106 U/L 34-122 ALTv (test code = 1742-6) 20 U/L 5-35 AST(SGOT) (test code = 7729180815) 17 U/L 13-40 eGFR (test code = 1466154542) mL/min/1.73m2 DARWIN (test code = DARWIN) Association [...] imaging tests). Lab Interpretation (test code = 78321-9) Abnormal [facility] WITH [id number] 05:40:06* Test Item Value Reference Range Interpretation Comme nts WBC (test code = 6690-2) See_Comment [[employer] ge] The system which generated this result transmitted reference range: 4.30 - 11.10 10*3/?L. The reference range was not used to interpret this result as normal/abnormal. RBC (test code = 789-8) See_Comment [[employer] ge] The system which generated this result [...] 33.3 g/dL 31.6-35.1 RDW-SD (test code = 91906-0) 39.7 fL 39.0-49.9 RDW-CV (test code = 788-0) 13.6 % 12.0-15.5 PLT (test code = 777-3) See_Comment [[employer] ge] The system which generated this result transmitted reference range: 166 - 358 10*3/?L. The reference range was not used to interpret this result as normal/abnormal. MPV (test code = 24862-7) 9.5 fL 9.5-12.9 NRBC/100 WBC (test code = 6856564791) See_Comment [Automated [employer] ssage] The system which generated this result transmitted reference range: 0.0 - 10.0 /100 WBCs. The reference range was not used to interpret this result as normal/abnormal. NRBC x10^3 (test code = 2635463283) <0.01 See_Comment [Automated messa ge] The system which generated this result transmitted reference range: 10*3/?L. The reference range was not used to interpret this result as normal/abnormal. GRAN MAT (NEUT) % (test code = 770-8) 53.7 % IMM GRAN % (test code = 7720059023) 0.50 % LYMPH % (test code = 736-9) 36.0 % MONO % (test code = 5905-5) 6.3 % EOS % (test code = 713-8) 2.8 % BASO % (test code = 706-2) 0.7 % GRAN MAT x10^3(ANC) (test code = 6324596628) 5.38 10*3/uL 1.88-7.09 IMM GRAN x10^3 (test code = 7922487486) 0.05 10*3/uL 0.00-0.06 LYMPH x10^3 (test code = 731-0) 3.60 10*3/uL 1.32-3.29 H MONO x10^3 (test code = 742-7) 0.63 10*3/uL 0.33-0.92 EOS x10^3 (test code = 711-2) 0.28 10*3/uL 0.03-0.39 BASO x10^3 (test code = 704-7) 0.07 10*3/uL 0.01-0.07 Lab Interpretation (test code = 73221-8) [facility]PO[facility] [id number] 05:32:00* Test Item Value Reference Range Interpretation Comme nts POCT PREG (test code = 1605) negative On board controls acceptable with C Line (test code = 3574) present POCT PREG LOT # (test code = 3575) [id number] POCT PREG TEST DATE ( test code = 3576) 08/07/2022 Lab Interpretation (test cod e = 34646-0) [facility] HospitalTroponin [id number] 11:13:57* Test Item Value Reference Range Interpretation Comments TROPONIN I (test code = 6783932721) 0.002 ng/mL See_Comment [Automated message] The system [...] of biotin. Lab Interpretation (test code = 54123-9) Normal [facility] Metabolic Panel (NA, K, CL, CO2, GLUCOSE, BUN, CREATININE, CA)2021-04-08 11:04:34* Test Item Value Reference Range Interpretation Comme nts NA (test code = 1600777694) 140 mmol/L 135-145 K (test code = 2515839899) 3.6 mmol/L 3.5-5.0 CL (test code = 6214246440) 111 mmol/L 98-108 H CO2 TOTAL (test code = 4875521629) 22 mmol/L 23-31 L AGAP (test code = 0972866705) 2-16 BUN (test code = 2072719161) 10 mg/dL 7-23 GLUCOSE (test code = 8484398513) 104 mg/dL 70-110 CREATININE (test code = 9546336468) 0.70 mg/dL 0.50-1.04 CALCIUM (test code = 6492782247) 8.7 mg/dL 8.6-10.6 eGFR (test code = 1292504322) mL/min/1.73m2 DARWIN (test code = DARWIN) Association [...] imaging tests). Lab Interpretation (test code = 56392-8) Abnormal [facility] with Pinxbawjaluf3754-03-20 10:46:50* Test Item Value Reference Range Interpretation Comme nts WBC (test code = 6690-2) See_Comment [[employer]] The system which generated this result transmitted reference range: 4.30 - 11.10 10*3/?L. The reference range was not used to interpret this result as normal/abnormal. RBC (test code = 789-8) See_Comment [[employer]] The system which generated this result transmitted [...] 33.5 g/dL 31.6-35.1 RDW-SD (test code = 52172-9) 42.0 fL 39.0-49.9 RDW-CV (test code = 788-0) 14.1 % 12.0-15.5 PLT (test code = 777-3) See_Comment [Automated messa ge] The system which generated this result transmitted reference range: 166 - 358 10*3/?L. The reference range was not used to interpret this result as normal/abnormal. MPV (test code = 64443-8) 10.0 fL 9.5-12.9 NRBC/100 WBC (test code = 7780428702) See_Comment [Automated me ssage] The system which generated this result transmitted reference range: 0.0 - 10.0 /100 WBCs. The reference range was not used to interpret this result as normal/abnormal. NRBC x10^3 (test code = 1991226987) <0.01 See_Comment [Automated me ssage] The system which generated this result transmitted reference range: 10*3/?L. The reference range was not used to interpret this result as normal/abnormal. GRAN MAT (NEUT) % (test code = 770-8) 59.1 % IMM GRAN % (test code = 5676361435) 0.70 % LYMPH % (test code = 736-9) 28.2 % MONO % (test code = 5905-5) 8.5 % EOS % (test code = 713-8) 3.0 % BASO % (test code = 706-2) 0.5 % GRAN MAT x10^3(ANC) (test code = 2182236376) 3.61 10*3/uL 1.88-7.09 IMM GRAN x10^3 (test code = 1453878428) 0.04 10*3/uL 0.00-0.06 LYMPH x10^3 (test code = 731-0) 1.72 10*3/uL 1.32-3.29 MONO x10^3 (test code = 742-7) 0.52 10*3/uL 0.33-0.92 EOS x10^3 (test code = 711-2) 0.18 10*3/uL 0.03-0.39 BASO x10^3 (test code = 704-7) 0.03 10*3/uL 0.01-0.07 [facility]Trop[facility] [id number] 05:54:48* Test Item Value Reference Range Interpretation Comments TROPONIN I (test code = 7424538008) 0.002 ng/mL See_Comment [Automated message] The system [...] of biotin. Lab Interpretation (test code = 24960-7) Normal [facility] HospitalThyroid Stimulating Hormone (TSH)2021-04-08 00:51:16* Test Item Value Reference Range Interpretation Comme nts TSH (test code = 3781289518) See_Comment [Automated messa ge] The system which generated this result transmitted reference range: 0.45 - 4.70 mIU/L. The reference range was not used to interpret this result as normal/abnormal. Lab Interpretation (test code = 62477-3) Normal [facility] HospitalGlycosylated Hemoglobin (A1C)2021-04-08 00:26:53* Test Item Value Reference Range Interpretation Comme nts HGB A1C (test code = 4548-4) 5.5 % 4.0-5.7 DARWIN (test code = DARWIN) Reference RangesNormal: <5.7%Prediabetes: 5.7 - 6.4%Diabetes: > 6.5% Lab Interpretation (test code = 93407-6) Normal [facility] HospitalLipid Panel (Total Cholesterol, Triglycerides, HDL)2021-04-08 00:20:12* Test Item Value Reference Range Interpretation Comme nts CHOL (test code = 6628244262) 223 mg/dL 120-200 H HDL (test code = 2542349644) 35 mg/dL >50 L HDLC RATIO (test code = 9536833423) See_Comment H [[employer]] The system which generated this result transmitted reference range: <=4.5. The reference range was not used to interpret this result as normal/abnormal. TRIG (test code = 9847832052) 223 mg/dL 30-170 H LDL CHOL (test code = 73613-0) 143 mg/dL See_Comment [[employer] ASOCS] The system which generated this result transmitted reference range: <=160. The reference range was not used to interpret this result as normal/abnormal. VLDL (test code = 7649854659) 45 mg/dL 5-60 Lab Interpretation (test code = 55894-1) Abnormal [facility] HospitalMagnesium Tdyyh1432-09-63 00:20:07* Test Item Value Reference Range Interpretation Comme nts MAGNESIUM (test code = 3310562123) 1.7 mg/dL 1.7-2.4 Lab Interpretation (test cod e = 33638-9) [facility]COMP[facility]OLIC PANEL (48250)2021-04-07 23:04:13* Test Item Value Reference Range Interpretation Comme nts NA (test code = 7048006779) 139 mmol/L 135-145 K (test code = 1267755945) 3.4 mmol/L 3.5-5.0 L CL (test code = 5979291277) 109 mmol/L 98-108 H CO2 TOTAL (test code = 5648287276) 22 mmol/L 23-31 L AGAP (test code = 2784127222) 2-16 BUN (test code = 5418482328) 10 mg/dL 7-23 GLUCOSE (test code = 6907193680) 97 mg/dL 70-110 CREATININE (test code = 6498412802) 0.84 mg/dL 0.50-1.04 TOTAL BILI (test code = 2270577081) 0.3 mg/dL 0.1-1.1 CALCIUM (test code = 7957879425) 9.2 mg/dL 8.6-10.6 T PROTEIN (test code = 0588543844) 6.6 g/dL 6.3-8.2 ALBUMIN (test code = 3600168030) 3.8 g/dL 3.5-5.0 ALK PHOS (test code = 0490859675) 69 U/L 34-122 ALTv (test code = 1742-6) 18 U/L 5-35 AST(SGOT) (test code = 4407070552) 19 U/L 13-40 eGFR (test code = 1647800885) mL/min/1.73m2 DARWIN (test code = DARWIN) Association [...] imaging tests). Lab Interpretation (test code = 06848-0) [facility] [id number] 22:33:04* Test Item Value Reference Range Interpretation Comments TROPONIN I (test code = 7125884027) 0.001 ng/mL See_Comment [Automated message] The system [...] of biotin. Lab Interpretation (test code = 01019-5) Normal [facility] PVL-PTH5791-68-01 22:30:05* Test Item Value Reference Range Interpretation Comme [facility] NT-proBNP (test code = 1712083369) 352 pg/mL See_Comment H [Automated message] The system which generated this result transmitted reference range: <=125. The reference range was not used to interpret this result as normal/abnormal. DARWIN (test code = DARWIN) Biotin has been reported to cause a negative bias, interpret results relative to patient's use of biotin. Lab Interpretation (test code = 35583-0) Abnormal [facility] HospitalACTIV[facility] PARTIAL THRMPLAS [id number] 22:28:48* Test Item Value Reference Range Interpretation Comme [facility] APTT Patient (test code = 3173-2) See_Comment [Automated message] The system which generated this result transmitted reference range: 23 - 38 Seconds. The reference range was not used to interpret this result as normal/abnormal. DARWIN (test code = DARWIN) The [facility] patient population mean normal value for aPTT is 30 seconds. Lab Interpretation (test code = 59410-5) Normal [facility] HospitalPROTHROMBIN TIME / [id number] 22:26:44* Test Item Value Reference Range Interpretation Comme [facility] PROTIME PATIENT (test code = 5964-2) See_Comment [Automated [employer] ge] The system which generated this result transmitted reference range: 12.0 - 14.7 Seconds. The reference range was not used to interpret this result as normal/abnormal. INR (test code = 6301-6) Normal INR <1.1; Warfarin Therapeutic range 2.0 to 3.0 or 2.5 to 3.5, depending upon the indications. Lab Interpretation (test code = 39328-4) [facility] 22:20:05* Test Item Value Reference Range Interpretation Comme nts LIPASE (test code = 2383297639) 66 U/L 0-220 Lab Interpretation (test cod e = 89034-3) Normal [facility] HospitalCB WITH [id number] 22:07:01* Test Item Value Reference Range Interpretation Comme nts WBC (test code = 6690-2) See_Comment [[employer] ASOCS] The system which generated this result transmitted reference range: 4.30 - 11.10 10*3/?L. The reference range was not used to interpret this result as normal/abnormal. RBC (test code = 789-8) See_Comment [[employer]] The system which generated this result transmitted [...] 33.2 g/dL 31.6-35.1 RDW-SD (test code = 74588-6) 41.6 fL 39.0-49.9 RDW-CV (test code = 788-0) 14.1 % 12.0-15.5 PLT (test code = 777-3) See_Comment [[employer]ated [employer]] The system which generated this result transmitted reference range: 166 - 358 10*3/?L. The reference range was not used to interpret this result as normal/abnormal. MPV (test code = 49627-0) 9.2 fL 9.5-12.9 L NRBC/100 WBC (test code = 2885894376) See_Comment [Automated me ssage] The system which generated this result transmitted reference range: 0.0 - 10.0 /100 WBCs. The reference range was not used to interpret this result as normal/abnormal. NRBC x10^3 (test code = 2598088101) <0.01 See_Comment [Automated messa ge] The system which generated this result transmitted reference range: 10*3/?L. The reference range was not used to interpret this result as normal/abnormal. GRAN MAT (NEUT) % (test code = 770-8) 61.6 % IMM GRAN % (test code = 7994271502) 0.60 % LYMPH % (test code = 736-9) 28.7 % MONO % (test code = 5905-5) 4.9 % EOS % (test code = 713-8) 3.7 % BASO % (test code = 706-2) 0.5 % GRAN MAT x10^3(ANC) (test code = 8020094981) 6.24 10*3/uL 1.88-7.09 IMM GRAN x10^3 (test code = 4695149773) 0.06 10*3/uL 0.00-0.06 LYMPH x10^3 (test code = 731-0) 2.90 10*3/uL 1.32-3.29 MONO x10^3 (test code = 742-7) 0.50 10*3/uL 0.33-0.92 EOS x10^3 (test code = 711-2) 0.37 10*3/uL 0.03-0.39 BASO x10^3 (test code = 704-7) 0.05 10*3/uL 0.01-0.07 Lab Interpretation (test code = 95338-2) [facility]URIN[facility]YSIS2021-[facility] 08:49:55* Test Item Value Reference Range Interpretation Comme nts APPEARANCE (test code = 8123306467) Cloudy Clear A COLOR (test code = 7991603847) Yellow Yellow PH (test code = 4527912549) 4.8-8.0 SP GRAVITY (test code = 4734897276) 1.003-1.030 GLU U QUAL (test code = 3734186592) Normal Normal BLOOD (test code = 5172029898) Negative Negative KETONES (test code = 7267613231) Negative Negative PROTEIN (test code = 2887-8) Negative Negative UROBILIN (test code = 7811657577) Normal Normal BILIRUBIN (test code = 4563042722) 2 mg/dL Negative A NITRITE (test code = 0579727439) Negative Negative LEUK MARC (test code = 8188429910) 75/uL Negative A RBC/HPF (test code = 5177936167) See_Comment H [Automated messa ge] The system which generated this result transmitted reference range: 0 - 3 HPF. The reference range was not used to interpret this result as normal/abnormal. WBC/HPF (test code = 2622836551) See_Comment H [Automated messa ge] The system which generated this result transmitted reference range: 0 - 5 HPF. The reference range was not used to interpret this result as normal/abnormal. BACTERIA (test code = 0427492450) Moderate Negative A MUCOUS (test code = 6071495151) Slight Negative LPF A SQ EPITH (test code = 2179377778) HPF YEAST BUD (test code = 3229605575) See_Comment H [Automated messa ge] The system which generated this result transmitted reference range: <=1 HPF. The reference range was not used to interpret this result as normal/abnormal. Ictotest (test code = 3397321298) Negative Lab Interpretation (test code = 25432-5) Abnormal [facility]. METABOLIC PANEL (38277)2021-01-12 08:49:44* Test Item Value Reference Range Interpretation Comme nts NA (test code = 7789371291) 137 mmol/L 135-145 K (test code = 9526172255) 4.6 mmol/L 3.5-5.0 CL (test code = 7511070337) 108 mmol/L 98-108 CO2 TOTAL (test code = 8859277181) 21 mmol/L 23-31 L AGAP (test code = 7574053595) 2-16 BUN (test code = 0395534626) 19 mg/dL 7-23 GLUCOSE (test code = 9687490062) 107 mg/dL 70-110 CREATININE (test code = 7922536930) 0.63 mg/dL 0.50-1.04 TOTAL BILI (test code = 7765869373) 0.4 mg/dL 0.1-1.1 CALCIUM (test code = 0440113524) 9.2 mg/dL 8.6-10.6 T PROTEIN (test code = 8084058910) 7.4 g/dL 6.3-8.2 ALBUMIN (test code = 7892410464) 4.2 g/dL 3.5-5.0 ALK PHOS (test code = 2847252971) 179 U/L 34-122 H ALTv (test code = 1742-6) 113 U/L 5-35 H AST(SGOT) (test code = 9535710897) 38 U/L 13-40 eGFR (test code = 9466810259) mL/min/1.73m2 DARWIN (test code = DARWIN) Association [...] imaging tests). Lab Interpretation (test code = 30994-3) Abnormal [facility] WITH [id number] 08:11:02* Test Item Value Reference Range Interpretation [...] 33.3 g/dL 31.6-35.1 RDW-SD (test code = 90688-6) 41.6 fL 39.0-49.9 RDW-CV (test code = 788-0) 14.0 % 12.0-15.5 PLT (test code = 777-3) See_Comment [Automated messa ge] The system which generated this result transmitted reference range: 166 - 358 10*3/?L. The reference range was not used to interpret this result as normal/abnormal. MPV (test code = 55020-2) 9.5 fL 9.5-12.9 NRBC/100 WBC (test code = 3715945979) See_Comment [Automated LAVE[employer] ssage] The system which generated this result transmitted reference range: 0.0 - 10.0 /100 WBCs. The reference range was not used to interpret this result as normal/abnormal. NRBC x10^3 (test code = 6605750474) <0.01 See_Comment [Automated messa ge] The system which generated this result transmitted reference range: 10*3/?L. The reference range was not used to interpret this result as normal/abnormal. GRAN MAT (NEUT) % (test code = 770-8) 68.0 % IMM GRAN % (test code = 1292050692) 0.80 % LYMPH % (test code = 736-9) 23.6 % MONO % (test code = 5905-5) 5.1 % EOS % (test code = 713-8) 2.1 % BASO % (test code = 706-2) 0.4 % GRAN MAT x10^3(ANC) (test code = 2885025809) 8.86 10*3/uL 1.88-7.09 H IMM GRAN x10^3 (test code = 5951435183) 0.11 10*3/uL 0.00-0.06 H LYMPH x10^3 (test code = 731-0) 3.07 10*3/uL 1.32-3.29 MONO x10^3 (test code = 742-7) 0.66 10*3/uL 0.33-0.92 EOS x10^3 (test code = 711-2) 0.27 10*3/uL 0.03-0.39 BASO x10^3 (test code = 704-7) 0.05 10*3/uL 0.01-0.07 Lab Interpretation (test code = 27818-9) [facility] HospitalPO[facility] [id number] 08:02:00* Test Item Value Reference Range Interpretation Comme nts POCT PREG (test code = 1605) negative On board controls acceptable with C Line (test code = 3574) positive POCT PREG LOT # (test code = 3575) [id number] POCT PREG TEST DATE ( test code = 3576) 07/07/2022 Lab Interpretation (test cod e = 80207-1) Normal [facility] HospitalTR[facility]IN [id number] 01:55:05* Test Item Value Reference Range Interpretation Comme nts TROPONIN I (test code = 5746937559) 0.000 ng/mL See_Comment [Automated message] The system [...] biotin. ? Lab Interpretation (test code = 96028-2) Normal [facility] 1 Tvyz1313-10-64 23:41:46No radiographic evidence of an acute cardiopulmonary process. RL: [id number]: [id number] EXAM: XR CHEST 1 VW ORDERING PROVIDER: BAL HASSAN HISTORY: CP COMPARISON: 12/04/2020 TECHNIQUE: Portable AP radiograph of the chest. FINDINGS: Overlying monitoring leads. There is no focal consolidation,pneumothorax or appreciable pleural effusion. The card iomediastinalsilhouette is within normal limits. Trachea is midline. No acute osseousabnormality identified. Txmb, Radiant Results Inft User - 12/10/2020 6:42 PM CDT EXAM: XR CHEST 1 VWORDERING PROVIDER: BAL JEFFREYORY: CP COMPARISON: 12/04/2020 TECHNIQUE: Portable AP radiograph of the chest.FINDINGS: Overlying monitoring leads. There is no focal consolidation,pneumothorax or appreciable pleural effusion. The cardiomediastinalsilhouette is within normal limits. Trachea is midline. No acute osseousabnormality identified.IMPRESSIONNo radiographic evidence of an acute cardiopulmonary process.RL: 2109AFC: [id number] [facility] Troponin [id number] 23:07:21* Test Item Value Reference Range Interpretation Comme nts TROPONIN I (test code = 2575412363) 0.000 ng/mL See_Comment [Automated message] The system [...] biotin. ? Lab Interpretation (test code = 73719-5) Normal [facility]N-[facility]MINAL SLO-CKA1228-45-05 23:04:20* Test Item Value Reference Range Interpretation Comme [facility] NT-proBNP (test code = 9411057151) 14 pg/mL See_Comment [Automated message] The system which generated this result transmitted reference range: <=125. The reference range was not used to interpret this result as normal/abnormal. DARWIN (test code = DARWIN) Biotin has been reported to cause a negative bias, interpret results relative to patient's use of biotin. Lab Interpretation (test code = 12122-0) Normal [facility] HospitalHepatic Function Panel (ALB, T.PRO, BILI T, BU/BC, ALT, AST, ALK PHOS)2020-12-10 22:58:16* Test Item Value Reference Range Interpretation Comme nts TOTAL BILI (test code = 1507734736) 0.5 mg/dL 0.1-1.1 BILI UNCON (test code = 3519957130) 0.3 mg/dL 0.1-1.1 BILI CONJ (test code = 0727776547) 0.0 mg/dL 0.0-0.3 T PROTEIN (test code = 1219059179) 8.1 g/dL 6.3-8.2 ALBUMIN (test code = 2345790213) 4.7 g/dL 3.5-5.0 ALK PHOS (test code = 5194107782) 104 U/L 34-122 ALTv (test code = 1742-6) 18 U/L 5-35 AST(SGOT) (test code = 5146704644) 23 U/L 13-40 Lab Interpretation (test cod e = 43631-4) Normal [facility] Metabolic Panel (NA, K, CL, CO2, GLUCOSE, BUN, CREATININE, CA)2020-12-10 22:57:56* Test Item Value Reference Range Interpretation Comme nts NA (test code = 1806464296) 135 mmol/L 135-145 K (test code = 4442017008) 3.7 mmol/L 3.5-5.0 CL (test code = 7494990197) 105 mmol/L 98-108 CO2 TOTAL (test code = 1881575222) 18 mmol/L 23-31 L AGAP (test code = 1888338459) 2-16 BUN (test code = 2591081946) 14 mg/dL 7-23 GLUCOSE (test code = 8475981678) 108 mg/dL 70-110 CREATININE (test code = 5378614595) 0.56 mg/dL 0.50-1.04 CALCIUM (test code = 3024765384) 9.8 mg/dL 8.6-10.6 eGFR (test code = 5894418759) mL/min/1.73m2 DARWIN (test code = DARWIN) Association [...] imaging tests). Lab Interpretation (test code = 28573-7) Abnormal [facility] HospitalLipase [id number] 22:57:56* Test Item Value Reference Range Interpretation Comme nts LIPASE (test code = 4900356220) 122 U/L 0-220 Lab Interpretation (test cod e = 09513-4) Normal [facility] HospitalD-TWZDI8874-69-36 22:52:34* Test Item Value Reference Range Interpretation Comments D-DIMER (test code = 3917137801) See_Comment [Automated message] The system which generated [...] a diagnosis. Lab Interpretation (test code = 55419-3) Normal [facility] HospitalUrinalysis2021-06-05 22:52:29* Test Item Value Reference Range Interpretation Comme nts APPEARANCE (test code = 4540248740) Hazy Clear A COLOR (test code = 3323624239) Yellow Yellow PH (test code = 6915927924) 4.8-8.0 SP GRAVITY (test code = 8256465351) 1.003-1.030 GLU U QUAL (test code = 1592979716) Normal Normal BLOOD (test code = 8229946549) Negative Negative KETONES (test code = 5982995672) Negative Negative PROTEIN (test code = 2887-8) Negative Negative UROBILIN (test code = 5184855790) Normal Normal BILIRUBIN (test code = 8047423478) 2 mg/dL Negative A NITRITE (test code = 7106824241) Negative Negative LEUK MARC (test code = 3579404735) 25/uL Negative A RBC/HPF (test code = 8934775671) See_Comment [[employer]ated [employer]] The system which generated this result transmitted reference range: 0 - 3 HPF. The reference range was not used to interpret this result as normal/abnormal. WBC/HPF (test code = 3773148360) See_Comment [[employer]] The system which generated this result transmitted reference range: 0 - 5 HPF. The reference range was not used to interpret this result as normal/abnormal. BACTERIA (test code = 9013341635) Few Negative A MUCOUS (test code = 4186223021) Slight Negative LPF A SQ EPITH (test code = 5609585877) HPF Lab Interpretation (test code = 49137-2) [facility]normal [facility]CB with Fodbdjtxarqf9528-59-78 22:45:56* Test Item Value Reference Range Interpretation [...] 33.5 g/dL 31.6-35.1 RDW-SD (test code = 11389-5) 40.5 fL 39.0-49.9 RDW-CV (test code = 788-0) 13.3 % 12.0-15.5 PLT (test code = 777-3) See_Comment H [Automated message] The system which generated this result transmitted reference range: 166 - 358 10*3/?L. The reference range was not used to interpret this result as normal/abnormal. MPV (test code = 62102-7) 9.2 fL 9.5-12.9 L NRBC/100 WBC (test code = 9064973782) See_Comment [Automated message] The system which generated this result transmitted reference range: 0.0 - 10.0 /100 WBCs. The reference range was not used to interpret this result as normal/abnormal. NRBC x10^3 (test code = 1540496276) <0.01 See_Comment [Automated message] The system which generated this result transmitted reference range: 10*3/?L. The reference range was not used to interpret this result as normal/abnormal. GRAN MAT (NEUT) % (test code = 770-8) 73.4 % IMM GRAN % (test code = 0810138076) 0.50 % LYMPH % (test code = 736-9) 17.5 % MONO % (test code = 5905-5) 6.5 % EOS % (test code = 713-8) 1.6 % BASO % (test code = 706-2) 0.5 % GRAN MAT x10^3(ANC) (test code = 7782281669) 10.21 10*3/uL 1.88-7.09 H IMM GRAN x10^3 (test code = 1949849775) 0.07 10*3/uL 0.00-0.06 H LYMPH x10^3 (test code = 731-0) 2.44 10*3/uL 1.32-3.29 MONO x10^3 (test code = 742-7) 0.90 10*3/uL 0.33-0.92 EOS x10^3 (test code = 711-2) 0.22 10*3/uL 0.03-0.39 BASO x10^3 (test code = 704-7) 0.07 10*3/uL 0.01-0.07 Lab Interpretation (test code = 73950-6) [facility]normal [facility] HospitalPOCT Yabu2920-73-69 22:32:00* Test Item Value Reference Range Interpretation Comme nts POCT PREG (test code = 1605) negative On board controls acceptable with C Line (test code = 3574) present POCT PREG LOT # (test code = 3575) [id number] POCT PREG TEST DATE ( test code = 3576) 06/06/2022 Lab Interpretation (test cod e = 95325-5) [facility] HospitalUrinalysis2021-05-30 21:34:43* Test Item Value Reference Range Interpretation Comme nts APPEARANCE (test code = 3507030601) Clear Clear COLOR (test code = 9683384009) Yellow Yellow PH (test code = 3860603506) 4.8-8.0 SP GRAVITY (test code = 7175457451) 1.003-1.030 GLU U QUAL (test code = 2578174146) Normal Normal BLOOD (test code = 3095837586) Negative Negative KETONES (test code = 8891048305) Negative Negative PROTEIN (test code = 2887-8) Negative Negative UROBILIN (test code = 1245726272) Normal Normal BILIRUBIN (test code = 1245552910) Negative Negative NITRITE (test code = 1873330153) Negative Negative LEUK MARC (test code = 7706507308) Negative Negative RBC/HPF (test code = 2636550811) See_Comment [Automated messa ge] The system which generated this result transmitted reference range: 0 - 3 HPF. The reference range was not used to interpret this result as normal/abnormal. WBC/HPF (test code = 0732533807) <1 See_Comment [Automated messa ge] The system which generated this result transmitted reference range: 0 - 5 HPF. The reference range was not used to interpret this result as normal/abnormal. BACTERIA (test code = 0639854083) Negative Negative MUCOUS (test code = 3125841981) Slight Negative LPF A SQ EPITH (test code = 0476098157) HPF Lab Interpretation (test code = 93809-6) [facility]POCT Jevg4047-73-84 21:18:00* Test Item Value Reference Range Interpretation Comme nts POCT PREG (test code = 1605) negative On board controls acceptable with C Line (test code = 3574) present POCT PREG LOT # (test code = 3575) [id number] POCT PREG TEST DATE ( test code = 3576) 06/06/2022 Lab Interpretation (test cod e = 69525-2) [facility] HospitalXR ANKLE 3+ VW VFLP8077-07-06 21:11:00No acute bony abnormality. Preliminary Report Dictated [...] reviewed this study and agree with the abovereport.[facility] HospitalTrjovananin Z1674-86-40 20:59:44* Test Item Value Reference Range Interpretation Comme nts TROPONIN I (test code = 6212759140) 0.000 ng/mL See_Comment [Automated message] The system [...] biotin. ? Lab Interpretation (test code = 33437-1) Normal [facility] HospitalLipase Spipm1163-30-71 20:48:20* Test Item Value Reference Range Interpretation Comme nts LIPASE (test code = 4001025294) 96 U/L 0-220 Lab Interpretation (test cod e = 89260-6) Normal [facility] HospitalBasi Metabolic Panel (NA, K, CL, CO2, GLUCOSE, BUN, CREATININE, CA)2020-12-04 20:48:20* Test Item Value Reference Range Interpretation Comme nts NA (test code = 9111309768) 138 mmol/L 135-145 K (test code = 1798568578) 3.8 mmol/L 3.5-5.0 CL (test code = 8442539835) 108 mmol/L 98-108 CO2 TOTAL (test code = 8963353352) 21 mmol/L 23-31 L AGAP (test code = 7220005763) 2-16 BUN (test code = 9867508972) 13 mg/dL 7-23 GLUCOSE (test code = 8704488779) 107 mg/dL 70-110 CREATININE (test code = 4816528959) 0.66 mg/dL 0.50-1.04 CALCIUM (test code = 1460024244) 9.3 mg/dL 8.6-10.6 eGFR (test code = 2757878652) mL/min/1.73m2 DARWIN (test code = DARWIN) Association [...] imaging tests). Lab Interpretation (test code = 06596-1) [facility]normal [facility] HospitalHepatic Function Panel (ALB, T.PRO, BILI T, BU/BC, ALT, AST, ALK PHOS)2020-12-04 20:48:20* Test Item Value Reference Range Interpretation Comme nts TOTAL BILI (test code = 7428179092) 0.3 mg/dL 0.1-1.1 BILI UNCON (test code = 8019044826) 0.1 mg/dL 0.1-1.1 BILI CONJ (test code = 1524836813) 0.0 mg/dL 0.0-0.3 T PROTEIN (test code = 0108538301) 7.0 g/dL 6.3-8.2 ALBUMIN (test code = 1270521735) 4.0 g/dL 3.5-5.0 ALK PHOS (test code = 5931788739) 114 U/L 34-122 ALTv (test code = 1742-6) 30 U/L 5-35 AST(SGOT) (test code = 6510542547) 23 U/L 13-40 Lab Interpretation (test cod e = 41485-1) Normal [facility] with Bkqohdqcjauj1822-51-58 20:35:01* Test Item Value Reference Range Interpretation Comme nts WBC (test code = 6690-2) See_Comment [[employer] ASOCS] The system which generated this result transmitted reference range: 4.30 - 11.10 10*3/?L. The reference range was not used to interpret this result as normal/abnormal. RBC (test code = 789-8) See_Comment [[employer]] The system which generated this result transmitted [...] 34.0 g/dL 31.6-35.1 RDW-SD (test code = 18147-6) 39.8 fL 39.0-49.9 RDW-CV (test code = 788-0) 12.9 % 12.0-15.5 PLT (test code = 777-3) See_Comment [Automated messa ge] The system which generated this result transmitted reference range: 166 - 358 10*3/?L. The reference range was not used to interpret this result as normal/abnormal. MPV (test code = 12863-2) 9.3 fL 9.5-12.9 L NRBC/100 WBC (test code = 8685843366) See_Comment [Automated LAVE[employer] ssage] The system which generated this result transmitted reference range: 0.0 - 10.0 /100 WBCs. The reference range was not used to interpret this result as normal/abnormal. NRBC x10^3 (test code = 3150210574) <0.01 See_Comment [Automated messa ge] The system which generated this result transmitted reference range: 10*3/?L. The reference range was not used to interpret this result as normal/abnormal. GRAN MAT (NEUT) % (test code = 770-8) 71.5 % IMM GRAN % (test code = 7650728061) 0.30 % LYMPH % (test code = 736-9) 19.8 % MONO % (test code = 5905-5) 6.2 % EOS % (test code = 713-8) 1.8 % BASO % (test code = 706-2) 0.4 % GRAN MAT x10^3(ANC) (test code = 1563089567) 6.79 10*3/uL 1.88-7.09 IMM GRAN x10^3 (test code = 4765203883) 0.03 10*3/uL 0.00-0.06 LYMPH x10^3 (test code = 731-0) 1.88 10*3/uL 1.32-3.29 MONO x10^3 (test code = 742-7) 0.59 10*3/uL 0.33-0.92 EOS x10^3 (test code = 711-2) 0.17 10*3/uL 0.03-0.39 BASO x10^3 (test code = 704-7) 0.04 10*3/uL 0.01-0.07 Lab Interpretation (test code = 41441-8) [facility]normal [facility]DR[facility]CRE[facility] ([facility]INE)2020-11-04 02:54:38* Test Item Value Reference Range Interpretation Comme nts AMPHET (test code = 2900610833) Negative Negative Cocaine Metabolite (test code = 5522489591) Negative Negative OPIATES (test code = 8323321652) Presumptive Positive Negative A THC (test code = 3614958356) Negative Negative DARWIN (test code = DARWIN) Urine Drug Cutoff Ranges Amphetamine: ? 1,000 ng/mLCocaine: ? 150 ng/mLOpiates: ? 300 ng/mLCannabinoids: ?50 ng/mL The results are to be used only for medical (i.e., treatment) purposes. Unconfirmed screening results must not be used for non-medical purposes (e.g., employment testing, legal testing). Lab Interpretation (test code = 85686-7) Abnormal [facility] HospitalTROPONIN V2597-77-04 02:51:11* Test Item Value Reference Range Interpretation Comme nts TROPONIN I (test code = 8108596230) 0.001 ng/mL See_Comment [Automated message] The system [...] biotin. ? Lab Interpretation (test code = 41084-9) Normal [facility] HospitalaPTT2021-04-30 02:41:10* Test Item Value Reference Range Interpretation Comme nts APTT Patient (test code = 3173-2) See_Comment [Automated message] The system which generated this result transmitted reference range: 23 - 38 Seconds. The reference range was not used to interpret this result as normal/abnormal. DARWIN (test code = DARWIN) The [facility] patient population mean normal value for aPTT is 30 seconds. Lab Interpretation (test code = 88052-6) Normal [facility] HospitalURINALYSIS2021-04-30 02:40:40* Test Item Value Reference Range Interpretation Comme nts APPEARANCE (test code = 1069736447) Clear Clear COLOR (test code = 0535335212) Yellow Yellow PH (test code = 3718782753) 4.8-8.0 SP GRAVITY (test code = 0383152490) 1.003-1.030 GLU U QUAL (test code = 2997471549) Normal Normal BLOOD (test code = 0591113569) Negative Negative KETONES (test code = 8226272222) Negative Negative PROTEIN (test code = 2887-8) Negative Negative UROBILIN (test code = 7065606201) Normal Normal BILIRUBIN (test code = 9399242676) Negative Negative NITRITE (test code = 6438487171) Negative Negative LEUK MARC (test code = 5234131667) Negative Negative RBC/HPF (test code = 4309480766) <1 See_Comment [[employer]] The system which generated this result transmitted reference range: 0 - 3 HPF. The reference range was not used to interpret this result as normal/abnormal. WBC/HPF (test code = 2172108428) <1 See_Comment [Autom[employer] ge] The system which generated this result transmitted reference range: 0 - 5 HPF. The reference range was not used to interpret this result as normal/abnormal. BACTERIA (test code = 8109146927) Negative Negative MUCOUS (test code = 2039920713) Slight Negative LPF A SQ EPITH (test code = 9730202525) HPF Lab Interpretation (test code = 68101-2) [facility] (49146)2020-11-04 02:40:09* Test Item Value Reference Range Interpretation Comme nts NA (test code = 5069659630) 141 mmol/L 135-145 K (test code = 1024501854) 4.1 mmol/L 3.5-5.0 CL (test code = 4704029612) 110 mmol/L 98-108 H CO2 TOTAL (test code = 4853244646) 22 mmol/L 23-31 L AGAP (test code = 8095270339) 2-16 BUN (test code = 6815964098) 15 mg/dL 7-23 GLUCOSE (test code = 4590465671) 115 mg/dL 70-110 H CREATININE (test code = 1853953176) 0.69 mg/dL 0.50-1.04 TOTAL BILI (test code = 5852150376) 0.2 mg/dL 0.1-1.1 CALCIUM (test code = 7894677912) 9.2 mg/dL 8.6-10.6 T PROTEIN (test code = 2546530304) 6.8 g/dL 6.3-8.2 ALBUMIN (test code = 3368011550) 4.1 g/dL 3.5-5.0 ALK PHOS (test code = 8773597562) 69 U/L 34-122 ALTv (test code = 1742-6) 20 U/L 5-35 AST(SGOT) (test code = 7210639043) 23 U/L 13-40 eGFR (test code = 4295324340) mL/min/1.73m2 DARWIN (test code = DARWIN) Association [...] imaging tests). Lab Interpretation (test code = 09636-8) [facility]normal [facility] HospitalLIPASE, [id number] 02:39:49* Test Item Value Reference Range Interpretation Comme [facility] LIPASE (test code = 2251318696) 117 U/L 0-220 Lab Interpretation (test cod e = 04215-7) Normal [facility] HospitalPROTHROMBIN TIME / [id number] 02:39:08* Test Item Value Reference Range Interpretation Comme nts PROTIME PATIENT (test code = 5964-2) See_Comment [[employer] ASOCS] The system which generated this result transmitted reference range: 12.0 - 14.7 Seconds. The reference range was not used to interpret this result as normal/abnormal. INR (test code = 6301-6) Normal INR <1.1; Warfarin Therapeutic range 2.0 to 3.0 or 2.5 to 3.5, depending upon the indications. Lab Interpretation (test code = 12397-6) Normal [facility] HospitalCBC WITH [id number] 02:30:11* Test Item Value Reference Range Interpretation Comme nts WBC (test code = 6690-2) See_Comment H [[employer] ASOCS] The system which generated this result transmitted reference range: 4.30 - 11.10 10*3/?L. The reference range was not used to interpret this result as normal/abnormal. RBC (test code = 789-8) See_Comment [[employer] ge] The system which generated this result [...] 32.8 g/dL 31.6-35.1 RDW-SD (test code = 07690-2) 44.1 fL 39.0-49.9 RDW-CV (test code = 788-0) 13.8 % 12.0-15.5 PLT (test code = 777-3) See_Comment [[employer] ge] The system which generated this result transmitted reference range: 166 - 358 10*3/?L. The reference range was not used to interpret this result as normal/abnormal. MPV (test code = 26402-6) 9.6 fL 9.5-12.9 NRBC/100 WBC (test code = 1174304430) See_Comment [Automated [employer] ssage] The system which generated this result transmitted reference range: 0.0 - 10.0 /100 WBCs. The reference range was not used to interpret this result as normal/abnormal. NRBC x10^3 (test code = 8926401653) <0.01 See_Comment [[employer]] The system which generated this result transmitted reference range: 10*3/?L. The reference range was not used to interpret this result as normal/abnormal. GRAN MAT (NEUT) % (test code = 770-8) 65.9 % IMM GRAN % (test code = 5501302008) 0.70 % LYMPH % (test code = 736-9) 25.9 % MONO % (test code = 5905-5) 5.1 % EOS % (test code = 713-8) 2.0 % BASO % (test code = 706-2) 0.4 % GRAN MAT x10^3(ANC) (test code = 5114145909) 8.82 10*3/uL 1.88-7.09 H IMM GRAN x10^3 (test code = 0119632753) 0.09 10*3/uL 0.00-0.06 H LYMPH x10^3 (test code = 731-0) 3.46 10*3/uL 1.32-3.29 H MONO x10^3 (test code = 742-7) 0.68 10*3/uL 0.33-0.92 EOS x10^3 (test code = 711-2) 0.27 10*3/uL 0.03-0.39 BASO x10^3 (test code = 704-7) 0.05 10*3/uL 0.01-0.07 Lab Interpretation (test code = 94725-9) [facility]normal [facility] HospitalCOVID-19 (ID NOW RAPID TESTING)2020-09-17 16:56:05* Test Item Value Reference Range Interpretation Comme nts SARS-CoV-2 Rapid ID NOW (test code = 45921-9) Not Detected Not Detected DARWIN (test code = DARWIN) ID NOW COVID-19 As say is an isothermal nucleic acid amplification test intended for the qualitative detection of nucleic acid from SARS-CoV-2 viral RNA in nasopharyngeal (GENERAL ACCOUNTING CLERK) specimens. It is used under Emergency Use [...] clinically indicated. Lab Interpretation (test code = 79696-7) Normal [facility] STREP SCREEN FOR GROUP [id number] 16:54:09* Test Item Value Reference Range Interpretation Comme nts Streptococcus pyogenes (grou p A) antigen (test code = 45687-0) Negative Negative Lab Interpretation (test cod e = 30145-8) Normal [facility] HospitalXR [facility] 3+ VW [id number] 07:29:48 Impression: No acute fracture or dislocation. RL: 2824AFC: 44155 End of Report Exam: Left Hand, 09/07/2020 [...] swelling.IMPRESSIONImpression: No acute fracture or dislocation.RL: 2824AFC: 02143Joc of Report [facility] 2 VW [id number] 07:28:55No acute abnormality of the left forearm. RL: 6200AFC: 68856 Patient name: CHARITY JOHNSONGEDOB: 1980 40 years [...] acute abnormality of the left forearm.RL: 6200AF: 03657 [facility] WorthUrinalysis2021-02-21 09:06:00* Test Item Value Reference Range Interpretation Comme nts APPEARANCE (test code = 2733763428) Hazy Clear A COLOR (test code = 3594752497) Yellow Yellow PH (test code = 6728180539) 4.8-8.0 SP GRAVITY (test code = 5410248509) 1.003-1.030 GLU U QUAL (test code = 1092023048) Normal Normal BLOOD (test code = 6816665943) Negative Negative KETONES (test code = 9296841370) Negative Negative PROTEIN (test code = 2887-8) Negative Negative UROBILIN (test code = 0619716710) Normal Normal BILIRUBIN (test code = 6791848034) Negative Negative NITRITE (test code = 3949094055) Negative Negative LEUK MARC (test code = 5542048432) Negative Negative RBC/HPF (test code = 3056823048) See_Comment [Automated messa ge] The system which generated this result transmitted reference range: 0 - 3 HPF. The reference range was not used to interpret this result as normal/abnormal. WBC/HPF (test code = 9922390275) <1 See_Comment [Automated messa ge] The system which generated this result transmitted reference range: 0 - 5 HPF. The reference range was not used to interpret this result as normal/abnormal. BACTERIA (test code = 9383836017) Moderate Negative A SQ EPITH (test code = 6137038191) HPF Lab Interpretation (test code = 67953-6) Abnormal [facility] HospitalCB with Fzsjprezvgjx9428-48-02 08:50:00* Test Item Value Reference Range Interpretation [...] 34.0 g/dL 31.6-35.1 RDW-SD (test code = 79998-9) 42.6 fL 39-49.9 RDW-CV (test code = 788-0) 13.6 % 12-15.5 PLT (test code = 777-3) See_Comment H [[employer] ge] The system which generated this result transmitted reference range: 166 - 358 10*3/?L. The reference range was not used to interpret this result as normal/abnormal. MPV (test code = 99391-4) 9.7 fL 9.5-12.9 NRBC/100 WBC (test code = 5142562272) See_Comment [Automated [employer] ssage] The system which generated this result transmitted reference range: 0.0 - 10.0 /100 WBCs. The reference range was not used to interpret this result as normal/abnormal. NRBC x10^3 (test code = 2894394925) <0.01 See_Comment [[employer] ge] The system which generated this result transmitted reference range: 10*3/?L. The reference range was not used to interpret this result as normal/abnormal. GRAN MAT (NEUT) % (test code = 770-8) 49.7 % IMM GRAN % (test code = 5817423213) 0.50 % LYMPH % (test code = 736-9) 41.0 % MONO % (test code = 5905-5) 6.5 % EOS % (test code = 713-8) 1.9 % BASO % (test code = 706-2) 0.4 % GRAN MAT x10^3(ANC) (test code = 5343773108) 6.39 10*3/uL 1.88-7.09 IMM GRAN x10^3 (test code = 1223271740) 0.07 10*3/uL 0-0.06 H LYMPH x10^3 (test code = 731-0) 5.27 10*3/uL 1.32-3.29 H MONO x10^3 (test code = 742-7) 0.84 10*3/uL 0.33-0.92 EOS x10^3 (test code = 711-2) 0.24 10*3/uL 0.03-0.39 BASO x10^3 (test code = 704-7) 0.05 10*3/uL 0.01-0.07 Lab Interpretation (test code = 55576-7) Abnormal [facility] HospitalPOCT Inoj7139-95-93 08:45:00* Test Item Value Reference Range Interpretation Comme nts POCT PREG (test code = 1605) neg On board controls acceptable with C Line (test code = 3574) yes POCT PREG LOT # (test code = 3575) [id number] POCT PREG TEST DATE ( test code = 3576) 04/06/2022 Lab Interpretation (test cod e = 68948-7) Normal [facility] HospitalComplete Metabolic Jypiz2398-21-54 08:30:00* Test Item Value Reference Range Interpretation Comme nts NA (test code = 9046941160) 137 mmol/L 135-145 K (test code = 8609907307) 3.3 mmol/L 3.5-5 L CL (test code = 9766270958) 102 mmol/L 98-108 CO2 TOTAL (test code = 6432868997) 24 mmol/L 23-31 AGAP (test code = 7512321147) 2-16 BUN (test code = 6043783876) 9 mg/dL 7-23 GLUCOSE (test code = 2804743917) 116 mg/dL 70-110 H CREATININE (test code = 5257347436) 0.48 mg/dL 0.5-1.04 L TOTAL BILI (test code = 7521431056) 0.3 mg/dL 0.1-1.1 CALCIUM (test code = 7917581377) 9.4 mg/dL 8.6-10.6 T PROTEIN (test code = 8987305943) 7.0 g/dL 6.3-8.2 ALBUMIN (test code = 1662590604) 4.3 g/dL 3.5-5 ALK PHOS (test code = 5791463308) 127 U/L 34-122 H ALTv (test code = 1742-6) 87 U/L 5-35 H AST(SGOT) (test code = 8675171094) 34 U/L 13-40 eGFR Calculation (Non-) (test code = 4790395188) mL/min/1.73m2 eGFR Calculation () (test code = 9586814207) mL/min/1.73m2 DARWIN (test code = DARWIN) Association [...] imaging tests). Lab Interpretation (test code = 72018-2) Abnormal [facility] HospitalLipase, Zrevy9309-34-94 08:30:00* Test Item Value Reference Range Interpretation Comme nts LIPASE (test code = 6197338920) 297 U/L 0-220 H Lab Interpretation (test cod e = 17749-3) Abnormal [facility] HospitalURINALYSIS2021-02-07 19:25:00* Test Item Value Reference Range Interpretation Comme nts APPEARANCE (test code = 7059716367) Clear Clear COLOR (test code = 7911820695) Straw Yellow A PH (test code = 0595429876) 4.8-8.0 SP GRAVITY (test code = 4823758671) 1.003-1.030 GLU U QUAL (test code = 2078146577) Normal Normal BLOOD (test code = 1782142694) 1+ Negative A KETONES (test code = 5129108192) Negative Negative PROTEIN (test code = 2887-8) Negative Negative UROBILIN (test code = 7758355464) Normal Normal BILIRUBIN (test code = 9595478993) Negative Negative NITRITE (test code = 8206914223) Negative Negative LEUK MARC (test code = 4885376805) Negative Negative RBC/HPF (test code = 5492598390) See_Comment [Automated [employer]] The system which generated this result transmitted reference range: 0 - 3 HPF. The reference range was not used to interpret this result as normal/abnormal. WBC/HPF (test code = 2932292434) <1 See_Comment [[employer] ge] The system which generated this result transmitted reference range: 0 - 5 HPF. The reference range was not used to interpret this result as normal/abnormal. BACTERIA (test code = 5824945441) Few Negative A MUCOUS (test code = 2498984512) Slight Negative LPF A SQ EPITH (test code = 1043496228) HPF Lab Interpretation (test code = 52355-7) Abnormal [facility] HospitalTROPONIN [id number] 19:09:00* Test Item Value Reference Range Interpretation Comme nts TROPONIN I (test code = 8505606346) <0.012 See_Comment [Automated message] The system which [...] biotin. ? Lab Interpretation (test code = 67395-7) Normal [facility] / [facility] - DRUG SCREEN ZVHHJM1137-63-74 19:09:00* Test Item Value Reference Range Interpretation Comme nts BENZO U (test code = 6683141249) Presumptive Positive Negative A ROSA U (test code = 6611992105) Negative Negative AMPHET (test code = 2578867499) Negative Negative THC (test code = 9435170419) Negative Negative METHADONE (test code = 5662797578) Negative Negative Meth U (test code = 5469659560) Negative Negative OPIATES (test code = 3974909695) Negative Negative Cocaine Metabolite (test code = 2190184397) Negative Negative PROPOXY (test code = 2461546065) Negative Negative Tric U (test code = 0540972907) Negative Negative PCP (test code = 9603092432) Negative Negative OXYCOD (test code = 2508614789) Negative Negative DARWIN (test code = DARWIN) [...] legal testing). Lab Interpretation (test code = 86562-7) Abnormal [facility] HospitalCOMP. METABOLIC PANEL (03532)2020-08-14 19:01:00* Test Item Value Reference Range Interpretation Comme nts NA (test code = 0680361463) 138 mmol/L 135-145 K (test code = 6240509864) 4.5 mmol/L 3.5-5 CL (test code = 6765586228) 106 mmol/L 98-108 CO2 TOTAL (test code = 1641759085) 21 mmol/L 23-31 L AGAP (test code = 7000906072) 2-16 BUN (test code = 5897719984) 13 mg/dL 7-23 GLUCOSE (test code = 4382760884) 97 mg/dL 70-110 CREATININE (test code = 5354909996) 0.48 mg/dL 0.5-1.04 L TOTAL BILI (test code = 8522071919) 0.4 mg/dL 0.1-1.1 CALCIUM (test code = 6303857301) 9.1 mg/dL 8.6-10.6 T PROTEIN (test code = 5004105320) 7.5 g/dL 6.3-8.2 ALBUMIN (test code = 2885470213) 4.3 g/dL 3.5-5 ALK PHOS (test code = 1013785358) 62 U/L 34-122 ALTv (test code = 1742-6) 19 U/L 5-35 AST(SGOT) (test code = 7796266881) 26 U/L 13-40 eGFR Calculation (Non-) (test code = 4850629974) mL/min/1.73m2 eGFR Calculation () (test code = 8314239994) mL/min/1.73m2 DARWIN (test code = DARWIN) Association [...] imaging tests). Lab Interpretation (test code = 85900-1) Abnormal [facility] HospitalLIPASE2021-02-07 19:01:00* Test Item Value Reference Range Interpretation Comme nts LIPASE (test code = 4610233939) 76 U/L 0-220 Lab Interpretation (test cod e = 88903-5) Normal [facility] HospitalCB WITH [id number] 18:47:00* Test Item Value Reference Range Interpretation Comme nts WBC (test code = 6690-2) See_Comment H [[employer] ASOCS] The system which generated this result transmitted reference range: 4.30 - 11.10 10*3/?L. The reference range was not used to interpret this result as normal/abnormal. RBC (test code = 789-8) See_Comment [[employer] ge] The system which generated this result [...] 34.3 g/dL 31.6-35.1 RDW-SD (test code = 60097-0) 42.0 fL 39-49.9 RDW-CV (test code = 788-0) 13.4 % 12-15.5 PLT (test code = 777-3) See_Comment [[employer] ge] The system which generated this result transmitted reference range: 166 - 358 10*3/?L. The reference range was not used to interpret this result as normal/abnormal. MPV (test code = 61224-4) 9.9 fL 9.5-12.9 NRBC/100 WBC (test code = 9517609945) See_Comment [Automated [employer] ssage] The system which generated this result transmitted reference range: 0.0 - 10.0 /100 WBCs. The reference range was not used to interpret this result as normal/abnormal. NRBC x10^3 (test code = 7280746289) <0.01 See_Comment [[employer]] The system which generated this result transmitted reference range: 10*3/?L. The reference range was not used to interpret this result as normal/abnormal. GRAN MAT (NEUT) % (test code = 770-8) 60.1 % IMM GRAN % (test code = 6047768356) 0.40 % LYMPH % (test code = 736-9) 31.3 % MONO % (test code = 5905-5) 6.0 % EOS % (test code = 713-8) 1.9 % BASO % (test code = 706-2) 0.3 % GRAN MAT x10^3(ANC) (test code = 0420276499) 6.96 10*3/uL 1.88-7.09 IMM GRAN x10^3 (test code = 8221016652) 0.05 10*3/uL 0-0.06 LYMPH x10^3 (test code = 731-0) 3.62 10*3/uL 1.32-3.29 H MONO x10^3 (test code = 742-7) 0.69 10*3/uL 0.33-0.92 EOS x10^3 (test code = 711-2) 0.22 10*3/uL 0.03-0.39 BASO x10^3 (test code = 704-7) 0.04 10*3/uL 0.01-0.07 Lab Interpretation (test code = 83011-7) [facility]normal [facility]XR CHEST 1 [id number] 18:17:08No acute cardiopulmonary abnormality. Preliminary Report Dictated [...] and soft tissues: No acute abnormality detected. [facility], Radiant Results Inft User - 08/14/2020 12:18 [...] reviewed this study and agree with theabove report.[facility] HospitalLactic Acid Whole Neoon1587-73-85 18:11:00* Test Item Value Reference Range Interpretation Comme nts LACTIC ACID (test code = 1678633493) 1.95 mmol/L 0.5-2.2 Lab Interpretation (test cod e = 40585-2) Normal [facility] HospitalCT ABDOMEN PELVIS WO [id number] 05:45:24No acute abdominopelvic abnormality. No urolithiasis. 2.5 [...] reviewed this study and agree with the abovereport.[facility] HospitalPOMN [id number] 03:10:00* Test Item Value Reference Range Interpretation Comme nts POCT PREG (test code = 1605) Negative On board controls acceptable with C Line (test code = 3574) Present POCT PREG LOT # (test code = 3575) [id number] POCT PREG TEST DATE ( test code = 3576) 03/07/2022 Lab Interpretation (test cod e = 88157-4) Normal [facility] with Nshzdqomljzq4873-13-33 03:05:00* Test Item Value Reference Range Interpretation [...] 34.7 g/dL 31.6-35.1 RDW-SD (test code = 96096-7) 42.0 fL 39-49.9 RDW-CV (test code = 788-0) 13.5 % 12-15.5 PLT (test code = 777-3) See_Comment [Automated message] The system which generated this result transmitted reference range: 166 - 358 10*3/?L. The reference range was not used to interpret this result as normal/abnormal. MPV (test code = 28987-0) 9.8 fL 9.5-12.9 NRBC/100 WBC (test code = 6166497582) See_Comment [Automated message] The system which generated this result transmitted reference range: 0.0 - 10.0 /100 WBCs. The reference range was not used to interpret this result as normal/abnormal. NRBC x10^3 (test code = 3584523444) <0.01 See_Comment [Automated message] The system which generated this result transmitted reference range: 10*3/?L. The reference range was not used to interpret this result as normal/abnormal. GRAN MAT (NEUT) % (test code = 770-8) 66.2 % IMM GRAN % (test code = 4467938928) 0.60 % LYMPH % (test code = 736-9) 25.4 % MONO % (test code = 5905-5) 5.6 % EOS % (test code = 713-8) 1.9 % BASO % (test code = 706-2) 0.3 % GRAN MAT x10^3(ANC) (test code = 8066500221) 10.64 10*3/uL 1.88-7.09 H IMM GRAN x10^3 (test code = 6371580246) 0.09 10*3/uL 0-0.06 H LYMPH x10^3 (test code = 731-0) 4.09 10*3/uL 1.32-3.29 H MONO x10^3 (test code = 742-7) 0.90 10*3/uL 0.33-0.92 EOS x10^3 (test code = 711-2) 0.31 10*3/uL 0.03-0.39 BASO x10^3 (test code = 704-7) 0.05 10*3/uL 0.01-0.07 Lab Interpretation (test code = 78700-5) Abnormal [facility] HospitalUrinalysis2021-02-04 02:56:00* Test Item Value Reference Range Interpretation Comme nts APPEARANCE (test code = 2818617173) Hazy Clear A COLOR (test code = 2488187440) Yellow Yellow PH (test code = 3738757581) 4.8-8.0 SP GRAVITY (test code = 4167216883) 1.003-1.030 GLU U QUAL (test code = 6705295765) Normal Normal BLOOD (test code = 5554718272) Negative Negative KETONES (test code = 6972923554) Negative Negative PROTEIN (test code = 2887-8) Negative Negative UROBILIN (test code = 2658029485) Normal Normal BILIRUBIN (test code = 6689364737) Negative Negative NITRITE (test code = 4602264649) Negative Negative LEUK MARC (test code = 2648328346) Negative Negative RBC/HPF (test code = 2048304503) See_Comment [[employer] ge] The system which generated this result transmitted reference range: 0 - 3 HPF. The reference range was not used to interpret this result as normal/abnormal. WBC/HPF (test code = 4748228214) See_Comment [[employer] ASOCS] The system which generated this result transmitted reference range: 0 - 5 HPF. The reference range was not used to interpret this result as normal/abnormal. BACTERIA (test code = 2371195555) Few Negative A MUCOUS (test code = 9298920795) Slight Negative LPF A SQ EPITH (test code = 9636055994) HPF YEAST BUD (test code = 9086409326) See_Comment H [Automated messa ge] The system which generated this result transmitted reference range: <=1 HPF. The reference range was not used to interpret this result as normal/abnormal. Lab Interpretation (test code = 09763-9) [facility] [id number] 02:24:00* Test Item Value Reference Range Interpretation Comme nts TROPONIN I (test code = 5723230213) <0.012 See_Comment [Automated message] The system which [...] biotin. ? Lab Interpretation (test code = 26398-3) Normal [facility] HospitalCOVID-19 (ID NOW RAPID TESTING)2020-08-11 02:15:00* Test Item Value Reference Range Interpretation Comme nts SARS-CoV-2 Rapid ID NOW (test code = 78650-5) Not Detected Not Detected DARWIN (test code = DARWIN) ID NOW COVID-19 As say is an isothermal nucleic acid amplification test intended for the qualitative detection of nucleic acid from SARS-CoV-2 viral RNA in nasopharyngeal (GENERAL ACCOUNTING CLERK) specimens. It is used under Emergency Use [...] clinically indicated. Lab Interpretation (test code = 34493-1) Normal [facility] Metabolic Panel (NA, K, CL, CO2, GLUCOSE, BUN, CREATININE, CA)2020-08-11 02:13:00* Test Item Value Reference Range Interpretation Comme nts NA (test code = 9957809367) 137 mmol/L 135-145 K (test code = 5895756233) 4.0 mmol/L 3.5-5 CL (test code = 0833003071) 107 mmol/L 98-108 CO2 TOTAL (test code = 2061727844) 19 mmol/L 23-31 L AGAP (test code = 5849874464) 2-16 BUN (test code = 9058357338) 10 mg/dL 7-23 GLUCOSE (test code = 3177874494) 106 mg/dL 70-110 CREATININE (test code = 1802464427) 0.47 mg/dL 0.5-1.04 L CALCIUM (test code = 1459847544) 9.2 mg/dL 8.6-10.6 eGFR Calculation (Non-) (test code = 2586583267) mL/min/1.73m2 eGFR Calculation () (test code = 6922131582) mL/min/1.73m2 DARWIN (test code = DARWIN) Association [...] imaging tests). Lab Interpretation (test code = 57982-2) Abnormal [facility] HospitalHepatic Function Panel (ALB, T.PRO, BILI T, BU/BC, ALT, AST, ALK PHOS)2020-08-11 02:13:00* Test Item Value Reference Range Interpretation Comme nts TOTAL BILI (test code = 2356072057) 0.4 mg/dL 0.1-1.1 BILI UNCON (test code = 9573644374) 0.3 mg/dL 0.1-1.1 BILI CONJ (test code = 3402646994) 0.0 mg/dL 0-0.3 T PROTEIN (test code = 2136066041) 7.5 g/dL 6.3-8.2 ALBUMIN (test code = 8548462356) 4.4 g/dL 3.5-5 ALK PHOS (test code = 3158697251) 48 U/L 34-122 ALTv (test code = 1742-6) 12 U/L 5-35 AST(SGOT) (test code = 4677435451) 22 U/L 13-40 Lab Interpretation (test cod e = 07232-1) Normal [facility] HospitalLipase Ylynt1191-11-87 02:13:00* Test Item Value Reference Range Interpretation Comme nts LIPASE (test code = 6415972267) 78 U/L 0-220 Lab Interpretation (test cod e = 03980-5) Normal [facility] HospitalLactic Acid Whole Phcbu3199-91-01 02:05:00* Test Item Value Reference Range Interpretation Comme nts LACTIC ACID (test code = 4818241010) 1.47 mmol/L 0.5-2.2 Lab Interpretation (test cod e = 91557-3) Normal [facility] HospitalXR FOREARM 2 VW DPIH5364-74-15 14:31:40No acute bony abnormality. Soft tissue swelling. [...] swelling is present in the distal forearm. [facility], Radiant Results Inft User - 08/07/2020 8:32 [...] reviewed this study and agree with the abovereport.[facility] HospitalCOVID-19 (ID NOW RAPID TESTING)2020-08-07 14:18:00* Test Item Value Reference Range Interpretation Comme nts SARS-CoV-2 Rapid ID NOW (test code = 99203-4) Not Detected Not Detected DARWIN (test code = DARWIN) ID NOW COVID-19 As say is an isothermal nucleic acid amplification test intended for the qualitative detection of nucleic acid from SARS-CoV-2 viral RNA in nasopharyngeal (GENERAL ACCOUNTING CLERK) specimens. It is used under Emergency Use [...] clinically indicated. Lab Interpretation (test code = 69002-3) Normal [facility] [id number] 02:54:00* Test Item Value Reference Range Interpretation Comme nts TROPONIN I (test code = 5306223740) <0.012 See_Comment [Automated message] The system which [...] biotin. ? Lab Interpretation (test code = 58509-7) [facility]* Test Item Value Reference Range Interpretation Comme nts LIPASE (test code = 2104136641) 76 U/L 0-220 Lab Interpretation (test cod e = 48504-7) [facility]2020-[facility] 01:54:00* Test Item Value Reference Range Interpretation Comme nts APPEARANCE (test code = 9007919440) Clear Clear COLOR (test code = 9926190965) Straw Yellow A PH (test code = 3146825050) 4.8-8.0 SP GRAVITY (test code = 8827263450) 1.003-1.030 GLU U QUAL (test code = 7746570293) Normal Normal BLOOD (test code = 5038728241) 3+ Negative A KETONES (test code = 6358292527) Negative Negative PROTEIN (test code = 2887-8) Negative Negative UROBILIN (test code = 2346694390) Normal Normal BILIRUBIN (test code = 1452919516) Negative Negative NITRITE (test code = 2519821081) Negative Negative LEUK MARC (test code = 7518388925) Negative Negative RBC/HPF (test code = 9938935909) See_Comment [[employer]ated [employer]] The system which generated this result transmitted reference range: 0 - 3 HPF. The reference range was not used to interpret this result as normal/abnormal. WBC/HPF (test code = 0745354068) <1 See_Comment [Automated [employer] ge] The system which generated this result transmitted reference range: 0 - 5 HPF. The reference range was not used to interpret this result as normal/abnormal. BACTERIA (test code = 6644591628) Few Negative A MUCOUS (test code = 4826241634) Slight Negative LPF A SQ EPITH (test code = 3521141198) HPF Lab Interpretation (test code = 64701-1) [facility]normal [facility] WITH [id number] 00:57:00* Test Item Value Reference Range Interpretation Comme nts WBC (test code = 6690-2) See_Comment [Automated [employer] ge] The system which generated this result [...] 34.0 g/dL 31.6-35.1 RDW-SD (test code = 92994-2) 41.7 fL 39-49.9 RDW-CV (test code = 788-0) 13.2 % 12-15.5 PLT (test code = 777-3) See_Comment [Automated [employer] ge] The system which generated this result transmitted reference range: 166 - 358 10*3/?L. The reference range was not used to interpret this result as normal/abnormal. MPV (test code = 03963-5) 9.4 fL 9.5-12.9 L NRBC/100 WBC (test code = 8838107133) See_Comment [Automated LAVEGO ssage] The system which generated this result transmitted reference range: 0.0 - 10.0 /100 WBCs. The reference range was not used to interpret this result as normal/abnormal. NRBC x10^3 (test code = 7864298708) <0.01 See_Comment [Automated messa ge] The system which generated this result transmitted reference range: 10*3/?L. The reference range was not used to interpret this result as normal/abnormal. GRAN MAT (NEUT) % (test code = 770-8) 51.8 % IMM GRAN % (test code = 7518924288) 0.50 % LYMPH % (test code = 736-9) 40.7 % MONO % (test code = 5905-5) 4.0 % EOS % (test code = 713-8) 2.5 % BASO % (test code = 706-2) 0.5 % GRAN MAT x10^3(ANC) (test code = 2047244935) 5.38 10*3/uL 1.88-7.09 IMM GRAN x10^3 (test code = 5987522674) 0.05 10*3/uL 0-0.06 LYMPH x10^3 (test code = 731-0) 4.22 10*3/uL 1.32-3.29 H MONO x10^3 (test code = 742-7) 0.42 10*3/uL 0.33-0.92 EOS x10^3 (test code = 711-2) 0.26 10*3/uL 0.03-0.39 BASO x10^3 (test code = 704-7) 0.05 10*3/uL 0.01-0.07 Lab Interpretation (test code = 63883-3) [facility]normal [facility]ADC[facility]CLC OR L[facility] ONLY - INFLUENZA A & B DIRECT PULLQYJ4655-12-09 00:51:00* Test Item Value Reference Range Interpretation Comme nts Influenza A (test code = 18740-8) Negative Negative Influenza B (test code = 84820-4) Negative Negative Lab Interpretation (test cod e = 17127-7) Normal [facility] HospitalPOCT [id number] 00:51:00* Test Item Value Reference Range Interpretation Comme nts POCT PREG (test code = 1605) negative On board controls acceptable with C Line (test code = 3574) present POCT PREG LOT # (test code = 3575) [id number] POCT PREG TEST DATE ( test code = 3576) 11/04/2021 Lab Interpretation (test cod e = 65769-2) Normal [facility] HospitalTROPONIN [id number] 00:46:00* Test Item Value Reference Range Interpretation Comme nts TROPONIN I (test code = 2309247751) <0.012 See_Comment [Automated message] The system which [...] biotin. ? Lab Interpretation (test code = 33278-6) Normal [facility] (NA, K, CL, CO2, GLUCOSE, BUN, CREATININE, CA)2020-07-01 00:46:00* Test Item Value Reference Range Interpretation Comme nts NA (test code = 3082842859) 141 mmol/L 135-145 K (test code = 7658932364) 3.8 mmol/L 3.5-5 CL (test code = 7189246420) 108 mmol/L 98-108 CO2 TOTAL (test code = 5799360974) 25 mmol/L 23-31 AGAP (test code = 2350013040) 2-16 BUN (test code = 2008055894) 10 mg/dL 7-23 GLUCOSE (test code = 9111496748) 92 mg/dL 70-110 CREATININE (test code = 0049280151) 0.58 mg/dL 0.5-1.04 CALCIUM (test code = 0563033717) 9.4 mg/dL 8.6-10.6 eGFR Calculation (Non-) (test code = 1009561933) mL/min/1.73m2 eGFR Calculation () (test code = 1090557646) mL/min/1.73m2 DARWIN (test code = DARWIN) Association [...] or urine or abnormalities in imaging tests). [facility] HospitalN-TERMINAL [id number]-QHT0041-26-25 00:43:00* Test Item Value Reference Range Interpretation Comme nts NT-proBNP (test code = 6824174542) 332 pg/mL See_Comment H [Automated message] The system which generated this result transmitted reference range: <=125. The reference range was not used to interpret this result as normal/abnormal. DARWIN (test code = DARWIN) Biotin has been reported to cause a negative bias, interpret results relative to patient's use of biotin. Lab Interpretation (test code = 96997-6) Abnormal [facility] HospitalXR CHEST 1 [id number] 00:20:50No acute cardiopulmonary abnormality Preliminary Report Dictated by Resident: Altaf Neal ?MD. Sean, have reviewed this study and agree with [...] reviewed this study and agree with the abovereport.[facility] CERVICAL SPINE WO [id number] 23:23:[address] EXAMINATION: CT [...] lung apices are unremarkable. IMPRESSIONUnremarkable cervical spine CT.[facility] Cnvd5557-00-64 01:50:00* Test Item Value Reference Range Interpretation Comme nts POCT PREG (test code = 1605) Negative On board controls acceptable with C Line (test code = 3574) Present POCT PREG LOT # (test code = 3575) [id number] POCT PREG TEST DATE ( test code = 3576) 10/05/2021 Lab Interpretation (test cod e = 08651-9) Normal [facility] HospitalTroponin [id number] 01:24:00* Test Item Value Reference Range Interpretation Comme nts TROPONIN I (test code = 8047261428) <0.012 See_Comment [Automated message] The system which [...] biotin. ? Lab Interpretation (test code = 16074-8) Normal [facility] HospitalCOVID[facility] (ID NOW RAPID TESTING)2020-06-13 01:22:00* Test Item Value Reference Range Interpretation Comme nts SARS-CoV-2 Rapid ID NOW (test code = 10903-4) Not Detected Not Detected DARWIN (test code = DARWIN) ID NOW COVID-19 As say is an isothermal nucleic acid amplification test intended for the qualitative detection of nucleic acid from SARS-CoV-2 viral RNA in nasopharyngeal (GENERAL ACCOUNTING CLERK) specimens. It is used under Emergency Use [...] clinically indicated. Lab Interpretation (test code = 90841-9) Normal [facility] HospitalD-XKOJP4797-06-02 01:16:00* Test Item Value Reference Range Interpretation Comments D-DIMER (test code = 4660107597) See_Comment [Automated message] The system which generated [...] a diagnosis. Lab Interpretation (test code = 10274-8) Normal [facility] HospitalBasi Metabolic Panel (NA, K, CL, CO2, GLUCOSE, BUN, CREATININE, CA)2020-06-13 01:13:00* Test Item Value Reference Range Interpretation Comme nts NA (test code = 3941777621) 137 mmol/L 135-145 K (test code = 2004047954) 4.2 mmol/L 3.5-5 CL (test code = 1055950168) 103 mmol/L 98-108 CO2 TOTAL (test code = 6966218679) 25 mmol/L 23-31 AGAP (test code = 0265710894) 2-16 BUN (test code = 8241078265) 11 mg/dL 7-23 GLUCOSE (test code = 1564281352) 98 mg/dL 70-110 CREATININE (test code = 8703671405) 0.52 mg/dL 0.5-1.04 CALCIUM (test code = 6712439337) 10.3 mg/dL 8.6-10.6 eGFR Calculation (Non-) (test code = 7488156462) mL/min/1.73m2 eGFR Calculation () (test code = 5247150716) mL/min/1.73m2 DARWIN (test code = DARWIN) Association [...] or urine or abnormalities in imaging tests). [facility] HospitalHepatic Function Panel (ALB, T.PRO, BILI T, BU/BC, ALT, AST, ALK PHOS)2020-06-13 01:13:00* Test Item Value Reference Range Interpretation Comme nts TOTAL BILI (test code = 9051798956) 0.5 mg/dL 0.1-1.1 BILI UNCON (test code = 8810834506) 0.3 mg/dL 0.1-1.1 BILI CONJ (test code = 3267157481) 0.0 mg/dL 0-0.3 T PROTEIN (test code = 2911247010) 7.3 g/dL 6.3-8.2 ALBUMIN (test code = 8254229479) 4.2 g/dL 3.5-5 ALK PHOS (test code = 5915140275) 85 U/L 34-122 ALTv (test code = 1742-6) 66 U/L 5-35 H AST(SGOT) (test code = 5836814013) 32 U/L 13-40 Lab Interpretation (test cod e = 20089-9) Abnormal [facility] HospitalLipase Bnpcw9870-63-89 01:13:00* Test Item Value Reference Range Interpretation Comme nts LIPASE (test code = 5726295745) 60 U/L 0-220 Lab Interpretation (test cod e = 16334-8) Normal [facility] HospitalUrinalysis2020-12-07 01:03:00* Test Item Value Reference Range Interpretation Comme nts APPEARANCE (test code = 6302957735) Clear Clear COLOR (test code = 3146487762) Straw Yellow A PH (test code = 5747949263) 4.8-8.0 SP GRAVITY (test code = 4985425633) 1.003-1.030 GLU U QUAL (test code = 4906864805) Normal Normal BLOOD (test code = 1282643089) Negative Negative KETONES (test code = 5840836143) Negative Negative PROTEIN (test code = 2887-8) Negative Negative UROBILIN (test code = 7446840139) Normal Normal BILIRUBIN (test code = 6544488725) Negative Negative NITRITE (test code = 0345991689) Negative Negative LEUK MARC (test code = 1340145511) Negative Negative RBC/HPF (test code = 2255437556) See_Comment [Automated messa ge] The system which generated this result transmitted reference range: 0 - 3 HPF. The reference range was not used to interpret this result as normal/abnormal. WBC/HPF (test code = 8370900236) See_Comment [Automated messa ge] The system which generated this result transmitted reference range: 0 - 5 HPF. The reference range was not used to interpret this result as normal/abnormal. BACTERIA (test code = 1462672134) Negative Negative MUCOUS (test code = 2296679226) Slight Negative LPF A SQ EPITH (test code = 6901262145) HPF Lab Interpretation (test code = 67649-8) Abnormal [facility] with Rorwkwqctssh0777-07-19 00:55:00* Test Item Value Reference Range Interpretation [...] 34.5 g/dL 31.6-35.1 RDW-SD (test code = 51005-7) 42.5 fL 39-49.9 RDW-CV (test code = 788-0) 13.5 % 12-15.5 PLT (test code = 777-3) See_Comment [Automated messa ge] The system which generated this result transmitted reference range: 166 - 358 10*3/?L. The reference range was not used to interpret this result as normal/abnormal. MPV (test code = 11574-8) 10.1 fL 9.5-12.9 NRBC/100 WBC (test code = 3877329172) See_Comment [Automated me ssage] The system which generated this result transmitted reference range: 0.0 - 10.0 /100 WBCs. The reference range was not used to interpret this result as normal/abnormal. NRBC x10^3 (test code = 1306799114) <0.01 See_Comment [Automated messa ge] The system which generated this result transmitted reference range: 10*3/?L. The reference range was not used to interpret this result as normal/abnormal. GRAN MAT (NEUT) % (test code = 770-8) 61.9 % IMM GRAN % (test code = 0790416746) 0.60 % LYMPH % (test code = 736-9) 30.6 % MONO % (test code = 5905-5) 5.2 % EOS % (test code = 713-8) 1.4 % BASO % (test code = 706-2) 0.3 % GRAN MAT x10^3(ANC) (test code = 7833641906) 8.03 10*3/uL 1.88-7.09 H IMM GRAN x10^3 (test code = 0919265651) 0.08 10*3/uL 0-0.06 H LYMPH x10^3 (test code = 731-0) 3.97 10*3/uL 1.32-3.29 H MONO x10^3 (test code = 742-7) 0.68 10*3/uL 0.33-0.92 EOS x10^3 (test code = 711-2) 0.18 10*3/uL 0.03-0.39 BASO x10^3 (test code = 704-7) 0.04 10*3/uL 0.01-0.07 Lab Interpretation (test code = 38767-2) Abnormal [facility] (ID NOW RAPID TESTING)2020-05-17 00:27:00* Test Item Value Reference Range Interpretation Comme nts SARS-CoV-2 Rapid ID NOW (test code = 58731-5) Not Detected Not Detected DARWIN (test code = DARWIN) ID NOW COVID-19 As say is an isothermal nucleic acid amplification test intended for the qualitative detection of nucleic acid from SARS-CoV-2 viral RNA in nasopharyngeal (GENERAL ACCOUNTING CLERK) specimens. It is used under Emergency Use [...] clinically indicated. Lab Interpretation (test code = 97788-0) Normal [facility] Metabolic Panel (NA, K, CL, CO2, GLUCOSE, BUN, CREATININE, CA)2020-05-17 00:00:00* Test Item Value Reference Range Interpretation Comme nts NA (test code = 0625389730) 136 mmol/L 135-145 K (test code = 2094053322) 3.6 mmol/L 3.5-5 CL (test code = 0118149399) 103 mmol/L 98-108 CO2 TOTAL (test code = 3184432056) 26 mmol/L 23-31 AGAP (test code = 2797445353) 2-16 BUN (test code = 5154186903) 13 mg/dL 7-23 GLUCOSE (test code = 4390903003) 130 mg/dL 70-110 H CREATININE (test code = 8041399568) 0.58 mg/dL 0.5-1.04 CALCIUM (test code = 8078541150) 9.9 mg/dL 8.6-10.6 eGFR Calculation (Non-) (test code = 0730854972) mL/min/1.73m2 eGFR Calculation () (test code = 4107587687) mL/min/1.73m2 DARWIN (test code = DARWIN) Association [...] imaging tests). Lab Interpretation (test code = 82822-9) Abnormal [facility] HospitalHep[facility] Function Panel (ALB, T.PRO, BILI T, BU/BC, ALT, AST, ALK PHOS)2020-05-17 00:00:00* Test Item Value Reference Range Interpretation Comme nts TOTAL BILI (test code = 7824134623) 0.4 mg/dL 0.1-1.1 BILI UNCON (test code = 5405781281) 0.3 mg/dL 0.1-1.1 BILI CONJ (test code = 0241463596) 0.0 mg/dL 0-0.3 T PROTEIN (test code = 8897045960) 7.3 g/dL 6.3-8.2 ALBUMIN (test code = 5218047193) 4.3 g/dL 3.5-5 ALK PHOS (test code = 3115431162) 118 U/L 34-122 ALTv (test code = 1742-6) 119 U/L 5-35 H AST(SGOT) (test code = 8557233188) 47 U/L 13-40 H Lab Interpretation (test cod e = 82646-7) Abnormal [facility] HospitalLipase Uokbs8607-47-63 00:00:00* Test Item Value Reference Range Interpretation Comme nts LIPASE (test code = 7950755343) 70 U/L 0-220 Lab Interpretation (test cod e = 70715-9) Normal [facility] HospitalCBC with Muwgfywiqjjs3128-27-34 23:49:00* Test Item Value Reference Range Interpretation [...] 33.3 g/dL 31.6-35.1 RDW-SD (test code = 10104-5) 42.8 fL 39-49.9 RDW-CV (test code = 788-0) 13.5 % 12-15.5 PLT (test code = 777-3) See_Comment [Automated messa ge] The system which generated this result transmitted reference range: 166 - 358 10*3/?L. The reference range was not used to interpret this result as normal/abnormal. MPV (test code = 83536-9) 9.8 fL 9.5-12.9 NRBC/100 WBC (test code = 2182120125) See_Comment [Automated LAVE[employer] ssage] The system which generated this result transmitted reference range: 0.0 - 10.0 /100 WBCs. The reference range was not used to interpret this result as normal/abnormal. NRBC x10^3 (test code = 2321400744) <0.01 See_Comment [Automated me ssage] The system which generated this result transmitted reference range: 10*3/?L. The reference range was not used to interpret this result as normal/abnormal. GRAN MAT (NEUT) % (test code = 770-8) 62.5 % IMM GRAN % (test code = 9123969047) 0.50 % LYMPH % (test code = 736-9) 29.8 % MONO % (test code = 5905-5) 5.6 % EOS % (test code = 713-8) 1.1 % BASO % (test code = 706-2) 0.5 % GRAN MAT x10^3(ANC) (test code = 0194253432) 6.65 10*3/uL 1.88-7.09 IMM GRAN x10^3 (test code = 9297408343) 0.05 10*3/uL 0-0.06 LYMPH x10^3 (test code = 731-0) 3.17 10*3/uL 1.32-3.29 MONO x10^3 (test code = 742-7) 0.59 10*3/uL 0.33-0.92 EOS x10^3 (test code = 711-2) 0.12 10*3/uL 0.03-0.39 BASO x10^3 (test code = 704-7) 0.05 10*3/uL 0.01-0.07 [facility] HospitalACETAMINOPHEN2020-11-08 08:24:00* Test Item Value Reference Range Interpretation Comme nts ACETAMINOP (test code = 0756233883) 21.0 ug/mL 10-30 DARWIN (test code = DARWIN) Toxic: Greater joan n 200 ug/mL @ 4 hour post ingestion or greater than 50 ug/mL @ 12 hour post ingestion Lab Interpretation (test code = 61493-3) Normal [facility] HospitalETHANOL2020-11-08 06:37:00* Test Item Value Reference Range Interpretation Comme nts ALCOHOL (test code = 5794403152) <10 mg/dL DARWIN (test code = DARWIN) <10 Ogwtsduf59-495 Toxic>100 Depression of ACTION FINISHER>400 Fatalities Reported [facility] HospitalBasic Metabolic Panel (NA, K, CL, CO2, GLUCOSE, BUN, CREATININE, CA)2020-05-15 06:35:00* Test Item Value Reference Range Interpretation Comme nts NA (test code = 7543145308) 137 mmol/L 135-145 K (test code = 2520090772) 4.0 mmol/L 3.5-5 CL (test code = 2402388710) 106 mmol/L 98-108 CO2 TOTAL (test code = 1641638162) 25 mmol/L 23-31 AGAP (test code = 3092151370) 2-16 BUN (test code = 2975214024) 9 mg/dL 7-23 GLUCOSE (test code = 7020143547) 95 mg/dL 70-110 CREATININE (test code = 9081246165) 0.53 mg/dL 0.5-1.04 CALCIUM (test code = 5819919379) 9.0 mg/dL 8.6-10.6 eGFR Calculation (Non-) (test code = 0115200418) mL/min/1.73m2 eGFR Calculation () (test code = 7047418683) mL/min/1.73m2 DARWIN (test code = DARWIN) Association [...] or urine or abnormalities in imaging tests). [facility] HospitalHep[facility] (ALB, T.PRO, BILI T, BU/BC, ALT, AST, ALK PHOS)2020-05-15 06:35:00* Test Item Value Reference Range Interpretation Comme nts TOTAL BILI (test code = 6459637464) 0.4 mg/dL 0.1-1.1 BILI UNCON (test code = 5332473812) 0.2 mg/dL 0.1-1.1 BILI CONJ (test code = 7732293803) 0.0 mg/dL 0-0.3 T PROTEIN (test code = 4384672486) 6.3 g/dL 6.3-8.2 ALBUMIN (test code = 5438650074) 3.8 g/dL 3.5-5 ALK PHOS (test code = 1413794228) 117 U/L 34-122 ALTv (test code = 1742-6) 179 U/L 5-35 H AST(SGOT) (test code = 8293188942) 194 U/L 13-40 H Lab Interpretation (test cod e = 11974-5) Abnormal [facility] HospitalLipase Mxame2750-76-05 06:35:00* Test Item Value Reference Range Interpretation Comme [facility] LIPASE (test code = 6177195221) 92 U/L 0-220 Lab Interpretation (test cod e = 77935-4) Normal [facility] HospitalaPTT2020-11-08 06:22:00* Test Item Value Reference Range Interpretation Comme nts APTT Patient (test code = 3173-2) See_Comment [Automated message] The system which generated this result transmitted reference range: 23 - 38 Seconds. The reference range was not used to interpret this result as normal/abnormal. DARWIN (test code = DARWIN) The [facility] patient population mean normal value for aPTT is 30 seconds. Lab Interpretation (test code = 10571-4) Normal [facility] HospitalUrinalysis2020-11-08 06:21:00* Test Item Value Reference Range Interpretation Comme nts APPEARANCE (test code = 8220452750) Clear Clear COLOR (test code = 4019033299) Yellow Yellow PH (test code = 0168405486) 4.8-8.0 SP GRAVITY (test code = 1132748415) 1.003-1.030 GLU U QUAL (test code = 9114062732) Normal Normal BLOOD (test code = 9450114682) Negative Negative KETONES (test code = 4385598897) Negative Negative PROTEIN (test code = 2887-8) Negative Negative UROBILIN (test code = 3441316170) Normal Normal BILIRUBIN (test code = 5727073961) Negative Negative NITRITE (test code = 8183613475) Negative Negative LEUK MARC (test code = 2016286108) Negative Negative RBC/HPF (test code = 6705346889) See_Comment [Automated [employer]] The system which generated this result transmitted reference range: 0 - 3 HPF. The reference range was not used to interpret this result as normal/abnormal. WBC/HPF (test code = 3686763863) <1 See_Comment [Automated [employer] ge] The system which generated this result transmitted reference range: 0 - 5 HPF. The reference range was not used to interpret this result as normal/abnormal. BACTERIA (test code = 0801546250) Negative Negative MUCOUS (test code = 4990277894) Slight Negative LPF A SQ EPITH (test code = 7301521833) HPF Lab Interpretation (test code = 93678-1) Abnormal [facility] HospitalProthrombin Time (PT) / EAZ1334-19-13 06:20:00 * Test Item Value Reference Range Interpretation Comme nts PROTIME PATIENT (test code = 5964-2) See_Comment [Automated [employer] ASOCS] The system which generated this result transmitted reference range: 12.0 - 14.7 Seconds. The reference range was not used to interpret this result as normal/abnormal. INR (test code = 6301-6) Normal INR <1.1; Warfarin Therapeutic range 2.0 to 3.0 or 2.5 to 3.5, depending upon the indications. Lab Interpretation (test code = 90029-1) Normal [facility] HospitalAD / C - DRUG SCREEN XJOHZK7703-16-20 06:19:00* Test Item Value Reference Range Interpretation Comme nts BENZO U (test code = 2916417830) Presumptive Positive Negative A ROSA U (test code = 6850362212) Negative Negative AMPHET (test code = 0082281456) Negative Negative THC (test code = 2479301955) Negative Negative METHADONE (test code = 9524290936) Negative Negative Meth U (test code = 2840282366) Negative Negative OPIATES (test code = 8524251868) Negative Negative Cocaine Metabolite (test code = 3462580918) Negative Negative PROPOXY (test code = 7884255458) Negative Negative Tric U (test code = 7481892336) Negative Negative PCP (test code = 8099474181) Negative Negative OXYCOD (test code = 5667151546) Negative Negative DARWIN (test code = DARWIN) [...] legal testing). Lab Interpretation (test code = 07086-3) Abnormal [facility] with Zvejlftotora4120-55-24 06:07:00* Test Item Value Reference Range Interpretation Comme nts WBC (test code = 6690-2) See_Comment [Automated [employer] ge] The system which generated this result transmitted reference range: 4.30 - 11.10 10*3/?L. The reference range was not used to interpret this result as normal/abnormal. RBC (test code = 789-8) See_Comment [Automated [employer] ge] The system which generated this result [...] 34.3 g/dL 31.6-35.1 RDW-SD (test code = 81480-0) 43.4 fL 39-49.9 RDW-CV (test code = 788-0) 13.7 % 12-15.5 PLT (test code = 777-3) See_Comment [Automated messa ge] The system which generated this result transmitted reference range: 166 - 358 10*3/?L. The reference range was not used to interpret this result as normal/abnormal. MPV (test code = 09162-2) 9.7 fL 9.5-12.9 NRBC/100 WBC (test code = 3498999196) See_Comment [Automated LAVEGO ssage] The system which generated this result transmitted reference range: 0.0 - 10.0 /100 WBCs. The reference range was not used to interpret this result as normal/abnormal. NRBC x10^3 (test code = 1499708796) <0.01 See_Comment [Automated messa ge] The system which generated this result transmitted reference range: 10*3/?L. The reference range was not used to interpret this result as normal/abnormal. GRAN MAT (NEUT) % (test code = 770-8) 50.6 % IMM GRAN % (test code = 9616314495) 0.20 % LYMPH % (test code = 736-9) 42.1 % MONO % (test code = 5905-5) 5.5 % EOS % (test code = 713-8) 1.2 % BASO % (test code = 706-2) 0.4 % GRAN MAT x10^3(ANC) (test code = 6714932113) 4.31 10*3/uL 1.88-7.09 IMM GRAN x10^3 (test code = 2048670054) <0.03 0-0.06 LYMPH x10^3 (test code = 731-0) 3.58 10*3/uL 1.32-3.29 H MONO x10^3 (test code = 742-7) 0.47 10*3/uL 0.33-0.92 EOS x10^3 (test code = 711-2) 0.10 10*3/uL 0.03-0.39 BASO x10^3 (test code = 704-7) 0.03 10*3/uL 0.01-0.07 Lab Interpretation (test code = 56240-5) Abnormal [facility] [facility] [id number] 05:53:00* Test Item Value Reference Range Interpretation Comme nts POCT PREG (test code = 1605) Negative On board controls acceptable with C Line (test code = 3574) Present POCT PREG LOT # (test code = 3575) HCG [id number] POCT PREG TEST DATE ( test code = 3576) 10/05/2021 Lab Interpretation (test cod e = 79099-8) Normal [facility] History and Physical Notes Date/Time [...] mL/hr at 02/15/23 2247, 1,000 mL at 02/15/232246 morpHINE (2 mg/mL) [...] the ACR Incidental Findings Committee;Journal of the [employer] Volume 7, Issue 10, Pages 494-688, April 2010). CHEST 1 VW Result Date: [...] process is identified in the chest. RL: 7496 END OF REPORT Assessment and plan: Principal [...] Flako Mercado MD 02/16/2023 IM-INTERNAL MEDICINE STAFF [facility] Notes <thead> Date/Time Note Provider Source 2024-10-23 23:53:58 Awake, alert oriented X4, respiratory even and unlabored,skin w/d color appropriate for race, moves all ext well, pt encouraged to follow up with pcp and or return as needed. Pt given printed and verbal discharge instructions regarding abdominal pain. Patient verbalized understanding and signature obtained, patient denies any other concerns. Prescriptions provided. Discussed antibiotic therapy and to take until all completed unless adverse reaction occurs - if occurs, discontinue medication and follow up with pcp/seek medical attention. Discussed NORCO 5 side affects and to avoid driving/operating machinery/or engaging in activities requiring alertness while taking. Advised to seek medical attention for new/prolonged/worsening of symptoms. No adverse reaction to meds given in ER noted upon discharge. Pt [facility] with steady gait. Connie Rivera RN [facility] 2024-10-23 20:14:29 Patient arrived ambulatory to ED c/o upper abdominal pain that radiates to the left side. Went to PCP today and they told her if it was still hurting come to the ER. Toradol taken today with no relief. States she feels like it is her pancreas. Jen Merrill RN [facility] 2024-10-23 20:12:00 [facility] Emergency Department Note Patient Name: Charity Roca Date of : 1980 44 year old female Treatment Room: TX1/TX1 Primary Care Physician: Joanne Montes Patient Escorted by: Family [5] Mode of Arrival: Personal means [1] EMS Treatment Prior to ED Arrival: BREAST PULLER treatment: Medication (comment) BREAST PULLER treatment comments: Toradol Travel and Exposure Screening: Symptoms Does patient have any of these symptoms?: (not recorded) Exposure Screening Has patient had contact with someone with a communicable disease in the last month?: (not recorded) Diseases exposed to:: (not recorded) Is Patient ?: (not recorded) Exposure Date: (not recorded) Chief Complaint: Chief Complaint Patient presents with Abdominal Pain History of Present Illness: 44 y.o. female with reported h/o pancreatitis, now with worsening mid abdominal pain x 2-3 days. Past Medical History/Immunizations: Past Medical History: Diagnosis [...] Review of Systems: Review of Systems Constitutional: Negative for chills, fatigue and fever. HENT: Negative. Eyes: Negative. Respiratory: Negative. Breasts: Negative. Cardiovascular: Negative. Gastrointestinal: Positive for abdominal pain and nausea. Negative for abdominal distention. Genitourinary: Negative. Musculoskeletal: Negative. Skin: Negative. Neurological: Negative. Psychiatric/Behavioral: Negative. Endocrine: Endocrine negative Physical Exam: ED Triage Vitals [10/23/242015] Weight 108.9 kg (240 lb) Actual or estimated Estimated by patient/family report Height 1.575 m (5' 2") BP (!) 147/114 Pulse 96 Resp 20 Temp 36.6 ?C (97.9 ?F) Temp source Oral SpO2 99 % Measured on Room air Physical Exam Vitals and nursing note reviewed. Constitutional: General: She is in acute distress. HENT: Head: Normocephalic and atraumatic. Mouth/Throat: Mouth: Mucous membranes are dry. Eyes: Pupils: Pupils are equal, round, and reactive to light. Cardiovascular: Rate and Rhythm: Normal rate and regular rhythm. Pulses: Normal pulses. Heart sounds: Normal heart sounds. Pulmonary: Effort: Pulmonary effort is normal. Breath sounds: Normal breath sounds. Abdominal: Palpations: Abdomen is soft. Tenderness: There is abdominal tenderness. There is no guarding or rebound. Musculoskeletal: General: Normal range of motion. Skin: General: Skin is warm. Capillary Refill: Capillary refill takes less than 2 seconds. Neurological: General: No focal deficit present. Mental Status: She is alert and oriented to person, place, and time. Psychiatric: Mood and Affect: Mood normal. Behavior: Behavior normal. Radiology: CT Abdomen pelvis w contrast Final Result CT ABDOMEN PELVIS W CONTRAST 10/23/2024 10:24 PM HISTORY: Abdominal pain, acute, nonlocalized. Upper abdominal pain radiates to left side. COMPARISON: Multiple prior CT studies, the most recent one dated 07/03/2024. TECHNIQUE: Axial images of the abdomen and pelvis were acquired after administration of intravenous contrast. Coronal and sagittal reconstructions were also created. FINDINGS: LOWER CHEST: Bibasilar atelectasis. HEPATOBILIARY: The liver is normal in size. No focal hepatic lesion. The gallbladder is surgically absent. Mild biliary ductal dilatation, similar to prior and likely related to reservoir phenomena. SPLEEN: Mildly enlarged and measures 13.1 cm. No lesion. Small calcified granuloma is noted. PANCREAS: The parenchyma is unremarkable. No ductal dilatation. No masses. ADRENAL GLANDS: Unchanged left adrenal 3 cm adenoma. Normal right adrenal gland. KIDNEYS: No hydronephrosis or stone. No solid mass. Left renal subcentimeter hypodensity is noted, too small to characterize. PELVIS/BLADDER: The urinary bladder is normal. 3.5 cm uterine fibroid is again noted. Left adnexal 3 cm bilocular cyst or cluster of 2 cysts. GI TRACT: Small sliding hiatus hernia. No dilation or wall thickening. The appendix is normal. PERITONEUM AND RETROPERITONEUM: No free air or free fluid. LYMPH NODES: No lymphadenopathy is seen. VESSELS: Minimal atherosclerotic calcifications of right iliac arteries. Normal caliber of the aorta. BONES AND SOFT TISSUES: No aggressive osseous lesion or acute osseous abnormality. Mild degenerative changes of the spine. No concerning soft tissue abnormality. IMPRESSION No acute findings within the abdomen or pelvis. Lab Results: Lab Results CBC WITH DIFF - Abnormal Result Value Ref Range WBC 11.13 (*) 4.30 - 11.10 10*3/?L RBC 4.68 3.93 - 5.25 10*6/?L HGB 12.3 11.6 - 15.0 g/dL HCT 37.4 35.7 - 45.2 % MCV 79.9 (*) 80.6 - 95.5 fL MCH 26.3 25.9 - 32.8 pg MCHC 32.9 31.6 - 35.1 g/dL RDW-SD 52.2 (*) 39.0 - 49.9 fL RDW-CV 17.9 (*) 12.0 - 15.5 % PLT 337 166 - 358 10*3/?L MPV 9.6 9.5 - 12.9 fL IPF % 1.6 1.3 - 7.7 % NRBC/100 WBC 0.0 0.0 - 10.0 /100 WBCs NRBC x10 3 <0.01 10*3/?L GRAN MAT (NEUT) % 62.2 % IMM GRAN % 0.30 % LYMPH % 29.3 % MONO % 6.2 % EOS % 1.6 % BASO % 0.4 % GRAN MAT x10 3 (ANC) 6.92 1.88 - 7.09 10*3/uL IMM GRAN x10 3 0.03 0.00 - 0.06 10*3/uL LYMPH x10 3 3.26 1.32 - 3.29 10*3/uL MONO x10 3 0.69 0.33 - 0.92 10*3/uL EOS x10 3 0.18 0.03 - 0.39 10*3/uL BASO x10 3 0.05 0.01 - 0.07 10*3/uL COMP. METABOLIC PANEL (98802) - Abnormal NA 136 135 - 145 mmol/L K 3.7 3.5 - 5.0 mmol/L CL 105 98 - 108 mmol/L CO2 TOTAL 22 (*) 23 - 31 mmol/L AGAP 9 2 - 16 BUN 13 7 - 23 mg/dL GLUCOSE 106 70 - 110 mg/dL CREATININE 0.57 0.50 - 1.04 mg/dL TOTAL BILI 0.4 0.1 - 1.1 mg/dL CALCIUM 9.4 8.6 - 10.6 mg/dL T PROTEIN 7.1 6.3 - 8.2 g/dL ALBUMIN 4.0 3.5 - 5.0 g/dL ALK PHOS 64 34 - 122 U/L ALTv 15 5 - 35 U/L AST(SGOT) 18 13 - 40 U/L eGFR 114.4 mL/min/1.73m2 URINALYSIS - Abnormal APPEARANCE Slightly Cloudy (*) Clear COLOR Yellow Yellow PH 5.0 4.8 - 8.0 SP GRAVITY 1.025 1.003 - 1.030 GLU U QUAL Normal Normal BLOOD 3+ (*) Negative KETONES Negative Negative PROTEIN Negative Negative UROBILIN Normal Normal BILIRUBIN 2 mg/dL (*) Negative NITRITE Negative Negative LEUK MARC Negative Negative RBC/HPF >182 (*) 0 - 3 HPF WBC/HPF 32 (*) 0 - 5 HPF BACTERIA Few (*) Negative MUCOUS Slight (*) Negative LPF SQ EPITH 15 HPF YEAST BUD 6 (*) <=1 HPF LIPASE - Normal LIPASE 110 0 - 220 U/L EKG: If EKG completed, see Procedure Note. Orders and Treatments: Orders Placed This Encounter Procedures CT Abdomen pelvis w contrast Cbc with Diff Comp. Metabolic Panel (35371) Lipase Urinalysis Orders Placed This Encounter Medications morpHINE (4 mg/mL) injection 6 mg ondansetron (ZOFRAN (PF)) injection 4 mg NaCl 0.9% (NS) bolus infusion 1,000 mL cefTRIAXone (ROCEPHIN) 1,000 mg in water for injection, sterile 10 mL IV Push iopamidol (ISOVUE 370-500 mL) injection 100 mL First Provider Eval: ED Events Date/Time Event User Comments 10/23/242014 Medical Screening Begins LEVAR BARKER MD -- 10/23/242014 First Provider Evaluation LEVAR BARKER MD -- ED COURSE Diagnosis/Impression as of 10/23/24 2340 Abdominal pain, unspecified abdominal location Procedures: Procedures MDM: Medical Decision Making Amount and/or Complexity of Data Reviewed Labs: ordered. Radiology: ordered. Risk Prescription drug management. Parenteral controlled substances. A) Hiatal Hernia, UTI Disposition/Condition: Home, Pepcid, Layton/Zofran prn, Cefdinir x 7 days, ER warnings, f/u PCP ED Disposition None Discharge Medications: Patient's Medications START taking these medications No medications on file CONTINUE taking these medications which have NOT CHANGED ALPRAZOLAM ORAL Take 2 mg by mouth in the morning and 2 mg in the evening. AZITHROMYCIN (ZITHROMAX Z-BEBETO) 250 MG TABLET Take 1 tablet by mouth SEE-INSTRUCTIONS. Take 500 mg day 1, then 250 mg days 2 to 5. BUPROPION HCL (WELLBUTRIN ORAL) Take 150 mg by mouth every morning. CIPROFLOXACIN HCL 500 MG TABLET Take 1 tablet by mouth in the morning and 1 tablet in the evening. DICYCLOMINE 10 MG CAPSULE Take 1 capsule by mouth 3 (three) times daily as needed for Abdominal pain. DICYCLOMINE 20 MG TABLET Take 1 tablet by mouth 4 (four) times daily. ESCITALOPRAM OXALATE (LEXAPRO) 5 MG TABLET Take 2 tablets by mouth at bedtime. KETOROLAC 10 MG TABLET Take 1 tablet by mouth every 6 (six) hours as needed for Pain (scale 7-10). MELATONIN 10 MG TAB Take 1 tablet by mouth at bedtime. METHOCARBAMOL (ROBAXIN) 500 MG TABLET Take 1 tablet by mouth every 6 (six) hours as needed for Pain (scale 7-10) (MUSCLE SPASM). OLANZAPINE (ZYPREXA) 15 MG TABLET Take 1 tablet by mouth every evening. ONDANSETRON (ZOFRAN) 4 MG TABLET Take 1 tablet by mouth every 8 (eight) hours as needed for Nausea and Vomiting (N/V). ONDANSETRON (ZOFRAN) 4 MG TABLET Take 1 tablet by mouth every 8 (eight) hours as needed for Nausea and Vomiting (N/V). ONDANSETRON 4 MG DISINTEGRATING TABLET Take 1 tablet by mouth every 4 (four) hours as needed for Nausea and Vomiting (N/V). ONDANSETRON 4 MG DISINTEGRATING TABLET Take 1 tablet by mouth every 8 (eight) hours as needed for Nausea and Vomiting (N/V). PHENAZOPYRIDINE 200 MG TABLET Take 1 tablet by mouth in the morning and 1 tablet at noon and 1 tablet in the evening. PHENAZOPYRIDINE 200 MG TABLET Take 1 tablet by mouth in the morning and 1 tablet at noon and 1 tablet in the evening. POLYETHYLENE GLYCOL 3350 (MIRALAX) 17 GRAM POWDER Take 1 Packet by mouth once daily as needed for Constipation. PREDNISONE 20 MG TABLET 1 PO BID x 4 days PROMETHAZINE 25 MG TABLET Take 1 tablet by mouth every 6 (six) hours as needed for Nausea and Vomiting (N/V). PROMETHAZINE 25 MG TABLET Take 1 tablet by mouth every 6 (six) hours as needed for Nausea and Vomiting (N/V). PROMETHAZINE 25 MG TABLET Take 1 tablet by mouth every 6 (six) hours as needed for Nausea and Vomiting (N/V). SIMETHICONE 125 MG Take 1 capsule by mouth after meals and at bedtime as needed for Gas. TOPIRAMATE (TOPAMAX) 200 MG TABLET Take 1 tablet by mouth every evening. TRAMADOL (ULTRAM) 50 MG TABLET Take 1 tablet by mouth every 6 (six) hours as needed for Pain (scale 7-10). Indications: acute pain TRAMADOL (ULTRAM) 50 MG TABLET Take 1 tablet by mouth every 6 (six) hours as needed for Pain (scale 7-10). Indications: acute pain START taking Modified Medications as Prescribed No medications on file STOP taking these medications No medications on file Follow-up: PCP Electronically signed by: Levar Barker MD 10/23/24 3271 [facility] 2024-10-23 10:16:39 Patient is here for a follow up from the hospital for chest pain and back pain. She needs a refill on the Hydroxyzine Pamoate 50 mg. She scored high for depression and anxiety but reports that she is able to use her coping mechanisms, has a place where she feels safe, and a safe person. [facility] 2024-10-13 02:45:03 Pt given printed and verbal [...] in no apparent distress. Jeana Pringle RN [facility] 2024-10-12 22:25:27 Pt arrived ambulatory without assist. Pt c/o chest pain that started around 8pm, and UTI symptoms that started yesterday. Shaneka Atkinson RN [facility] 2024-07-19 01:23:02 Pt given printed and verbal [...] with steady gait, in no apparent distress, [facility] 2024-07-19 00:57:31 ERP at bedside. [facility] 2024-07-19 00:09:25 07/18/24 2356 07/19/24 0000 07/19/24 0008 Orthostatic Vitals BP 132/56 (!) 139/92 (!) 157/112 BP Location Left arm Left arm Right leg Position Lying Sitting Standing Pulse 79 78 78 NYA Merrill RN [facility] 2024-07-18 23:44:12 Patient states "feeling like crap. Every time I stand up everything gets dizzy, black, and I feel like I am going to pass out." [facility] 2024-07-18 22:39:11 Pt brought in by [...] and pain in back. Pt went to [facility] yesterday and they said she was low on potassium (was given 4 tablets of potassium). Pt took home medications today NYA Atkinson RN [facility] 2024-07-04 01:30:39 PT D/C home. GCS15, [...] someone drive her home. NYA Ayala RN [facility] 2024-07-03 19:51:20 Pt arrives ambulatory to ED c/o N/V/D x3 days and says today began having right side abdominal pain. NYA Rios RN [facility] 2024-06-21 02:58:12 Pt given printed and [...] with steady gait, in no apparent distress. [facility] 2024-06-21 01:57:43 Pt arrives ambulatory to ED c/o "spider bite" upper right abdomen area. She says she squeezed it right before coming in and puss came out of it, leaving a black hole. So she came in to be evaled. NYA Rios RN [facility] 2024-06-15 00:27:31 Pt given printed and [...] no apparent distress, NYA Delgadillo RN [facility] 2024-06-14 22:55:00 Report given to JAMES Delgadillo NYA Emery RN [facility] 2024-06-14 21:23:27 Patient arrived ambulatory to ED c/o abdominal pain that started Saturday. Patient recently had heart cath placed on . States "haven't been keeping anything down. I can't even keep my medications down." NYA Merrill RN [facility] 2024-06-07 02:39:24 Pt given printed and [...] no apparent distress, NYA Delgadillo RN [facility] 2024-06-07 00:46:48 Report to Leona RAMIREZ. NYA Montelongo RN [facility] 2024-06-06 22:01:17 Patient arrived ambulatory to ED c/o chest pain that started around 1900 tonight. Patient took 4 baby ASA BREAST PULLER. Sharp chest pain that radiates to left shoulder. NYA Merrill RN [facility] 2024-05-28 13:02:38 Chief Complaint Patient presents with Shoulder Pain Pt complains of left shoulder pain that has been in pain for last 3 years. Pain is getting worse. No injury. No occupation. Pt has been doing PT for shoulder. She is also taking methocarbamol for pain however it is not helping. [facility] 2024-05-19 13:33:08 Patient given discharge instructions with readback, discussed prescriptions and follow up care. . Steady gait with NAD noted. NYA Davila RN [facility] 2024-05-19 11:42:01 Patient had a fall on Saturday and came into ED to be seen. Had pain meds and scan performed with no significant findings. Patient called her PCP and they told her to go to ER because she could have a concussion or just feel worse. NYA Cronin RN [facility] 2024-05-18 10:27:22 Chief Complaint Patient presents with Physical Patient is fasting. No other issues to discuss Jennifer Del Castillo MA II [facility] 2024-05-17 22:18:24 Pt given printed and [...] with steady gait, in no apparent distress, ST MANAGEMENT PROFESSOR Santi Delgadillo RN [facility] 2024-05-17 20:40:54 Okay to release information to father Piyush Roca per patient NYA Atkinson RN [facility] 2024-05-17 20:18:[address] scan and brought to [facility] with RN and trauma team. Continuous cardiac monitoring and serial vital signs monitored by Santi RAMIREZ. Santi Delgadillo RN [facility] 2024-05-17 19:58:[address] scan with RN and trauma team. Continuous cardiac monitoring and serial vital signs monitored by Santi RAMIREZ. Santi Delgadillo RN [facility] 2024-05-17 18:55:00 Received report from Juliano RAMIREZ [facility] 2024-05-17 18:35:54 Report received from EMS. Trauma protocol initiated. Trauma team members at bedside, primary and secondary survey in progress. Pt placed on continuous cardiac monitoring, pulse oximetry, and serial vital signs. Wellington Dorantes RN [facility] 2024-05-17 18:31:04 Patient arrived by [facility], tripped over a floor tile and hit the occipital area. Unsure of LOC. Patient received 10mg of reglan and morphine 4mg BREAST PULLER. [facility] Wellington Dorantes RN [facility] 2024-05-07 21:32:31 Patient discharged to home. [...] no apparent distress. Cameron Posada RN [facility] 2024-05-07 18:45:11 Pt arrived ambulatory with complaints of lower back pain, lower abdominal pain, and dysuria since yesterday. Took Tramadol at 2pm Aline Lou RN [facility] [id number] 06:28:23 THANK YOU FOR CHOOSING US FOR YOUR MEDICAL CARE AND IT WAS A PLEASURE TO TAKE CARE OF YOU: PUSHPA RODRIGUEZ, MSN, SALES CONTRACT ADMINISTRATOR, [facility] DIAGNOSIS: UTI, GASTROENTERITIS PRESCRIPTION: ZOFRAN AND MACROBID PER PRESCRIPTION DETAILS SENT TO [facility]: ROCEPHIN GIVEN IN ER FOLLOW UP: [...] NO PHYSICIAN MONTSERRAT TERRAZAS MD Work Phone: [address] [address] CARLOS SOLANO MD Work Phone: [address] [place] [phone] ENTER NAME IN NOTES OTHER Future Procedures [...] in Observation May 11, 2023 1:16am N ovmanuel 2022 1:10am CARDIOLOGY CONSULT May 11, 2023 1:16am Norm jackson 2022 1:10am Resuscitation Status May 11, 2023 1:16am N ovmanuel 2022 1:10am TRANSFER ROOM May 11, 2023 [...] except Meds August 31, 2023 6:49pm Febru ann2023 6:45pm Insert Peripheral IV Access August 31, [...] is unavailable Patient Instructions <tbody> Otitis Externa, Arme-jg-Tvzj Allergic Rhinitis, Adult, Ea sy-to-Read Ovarian Cyst, Bxdm-ij-Wtqq Abdominal Pain, Adult, Easy- to-Read Renal Mass Nonspecific Chest Pain, Adul t, Lufz-lp-Mrpn Acetaminophen; Hydrocodone t ablets or capsules Sucralfate tablets Pantoprazole tablets Ciprofloxacin tablets Nonspecific Chest Pain, Adul t, Hylu-jl-Cbeb Alprazolam tablets Trazodone Tablets Aspirin Tablets Urinary Tract Infection, Milton lt, Zdid-rt-Twac Dehydration, Adult, Easy-to- Read Urinary Tract Infection, Milton lt, Zfps-xv-Krib [facility]2024-10-02 20:37:07 Pt given printed and verbal discharge [...] gait, in no apparent distress Renato Doan [facility] [id number] 18:50:37 Nurse Report Report given to renato. Chief complaint, assessment findings, infusion verify and orders reviewed. Plan of care discussed. Lola Reynoso RN Lola Reynoso [facility] [id number] 17:27:35 Pt arrived ambulatory complains of abdominal pain and points to her left upper abdominal. Pt states that last time she had this type of pain it was pancreatitis. Reports pain started at 1300 and reports pain is 9/10 and hurts whenever she eats. Harriett Mejia [facility] [id number] 11:11:13 Chief Complaint Patient presents with Shoulder Pain Left shoulder pain with limited range of motion x 6 months, takes OTC tylenol for the pain as needed but pain is getting worse. 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 Not working currently KelleeMarcio [id number] 09:19:27 Chief Complaint Patient presents with [facility] F/U [facility] ER follow up with admission on 12/04/2023 for chest pains. She had a stent placed by Dr. Arthur. Jennifer Del Castillo MA II Jennifer Del Castillo MA, II[facility] CenterMarcio [id number] 10:49:31 Chief Complaint Patient presents with Anxiety Follow up on anxiety/depression. She states that it has gotten worse since last visit. She had an appointment with [facility] this morning and it was canceled due to internet outage. Jennifer Del Castillo MA II Jennifer Del Castillo MA, IIDoctors Hospitalazra [id number] 13:21:02 Chief Complaint Patient presents with New Patient [facility] told her she needed to go to a different doctor because they could not give her anything else Marbella Oh LVN Marbin [id number] 00:41:45 Pt given printed and verbal discharge [...] & in no apparent distress. Becky Rios [facility] [id number] 21:25:46 Pt arrived ambulatory but states feeling like she is going to pass out, Pt placed in ED wheelchair. Pt c/o " I have pain in my back on the left side, it mark when I pee, Im nauseous, I feel like Im going to pass out and I have been crapping on myself." Shaneka Atkinson [facility] [id number] 22:58:41 Pt discharged with diagnosis of RUQ abd pain and chronic abd pain. Printed and verbal instructions reviewed with and given to pt. Prescriptions given x 2. Pt verbalized understanding of teaching, medications, and recommended follow-up. Denies questions or concerns at this time. Pt ambulatory at discharge. Appears in no apparent distress. No ataxia noted. ST MANAGEMENT PROFESSOR Adeline Floyd [facility] [id number] 19:46:03 Pt states sharp pain to the RLQ that started today around noon, pt denies any urinary symptoms, vomiting X [address] MANAGEMENT PROFESSOR Razia Yost [facility] [id number] 00:14:00 Awake, alert oriented X4, respiratory even [...] noted upon discharge Pt ambulated to the [facility] with steady gait Razia Yost [place] [id number] 23:06:10 Received report from Evy RAMIREZ, assuming care. Brandy Lou [place] [id number] 22:38:[address] scan done. Patient states LQ abdominal pain now 01/14. T Guanaco Caceres [place] [address]-09-02 22:00:00 POCT test negative. Patient states RLQ abdominal pain improved briefly with IV Morphine administration, then returned at 03/17. Dr Richards informed, and patient medicated as ordered with Fentanyl 75 mcg slow IVP. [place] [id number] 21:00:00 Medicated as per order with Zofran 4 mg slow IVP and Morphine 4 mg slow IVP for RLQ abdominal pain 03/17. [place] [id number] 20:17:52 Pt arrived ambulatory with complaints of RLQ abd pain since yesterday. Pt reports N/V/D. Last took Tylenol at 3pm. Denies dysuria but reports frequency. Hx: Anxiety, Depression, PTSD, Pancreatitis Aline Lou [place] [id number] 01:30:22 Discharged home ambulatory. Home instructions given. John Ventura [place] [id number] 19:32:44 Pt CO of N/V, left lower back pain, painful urination and diarrhea since yesterday, states she was admitted last week for pancreatitis. Pt already promethazine tablets today with no relief. Jean Carlos Alegria [place] [id number] 19:22:00 [facility] Emergency Department Note Patient Name: Charity Roca Date of : 1980 43 year old female Treatment Room: OR3/OR3 Primary Care Physician: Carlos Solano Patient Escorted by: Family [5] Mode of Arrival: Personal means [1] EMS Treatment Prior to ED Arrival: BREAST PULLER treatment: None Travel and Exposure Screening: Symptoms [...] History provided by: Patient and medical records transmission technician used: No Abdominal Pain Pain location: Generalized [...] Endocrine negative Physical Exam: ED Triage Vitals [08/25/23 1934] Weight 99.8 kg (220 lb) Actual [...] adenoma on noncontrast imaging. RL: [id number] AFC: [id number] Lab Results: Lab Results CBC WITH DIFF [...] POCT PREG TEST DATE COMP. METABOLIC PANEL (60142) NA 139 135 - 145 mmol/L K [...] CONTRAST CBC WITH DIFF COMP. METABOLIC PANEL (38079) LIPASE URINALYSIS POCT TEST Orders Placed This [...] Electronically signed by: Olivia Garcia MD 03/02/23121 [facility] - [id number] 02:22:03 Pt given printed and verbal discharge [...] leaving in no apparent distress, Linda [facility]ala [id number] 22:53:36 Pt arrived ambulatory with complaints of [...] might be from her anxiety. Aline Lou [id number] 15:59:15 Problem: Pain Goal: Control of pain [...] communication Outcome: Adequate for discharge [facility]ata Lamar [id number] 00:21:19 Problem: Pain Goal: Control of pain [...] Goal: Effective communication Outcome: Progressing as expected [place] [id number] 16:55:55 Problem: Pain Goal: Control of pain [...] Goal: Effective communication Outcome: Progressing as expected [place] [id number] 03:35:03 Problem: Pain Goal: Control of pain [...] Goal: Effective communication Outcome: Progressing as expected [place] [id number] 19:41:18 Nurse Report Report given to JAMES Gatica. Chief complaint, assessment findings, infusion verify and orders reviewed. Plan of care discussed with both nurses. Stacie Man RN [facility] [place][NOTE 3] Stacie Man [facility]NMer[facility] [id number] 13:40:01 CC: patient presents to the ER [...] amb without assistance. Appears in no distress. [facility] - [id number] 13:23:00Associated Order(s): EKG-12 Lead ROUTINE ONCE Pre-Procedure Diagnose(s): Chest pain, unspecified type Post-Procedure Diagnose(s): Acute pancreatitis, unspecified complication status, unspecified pancreatitis type [facility] Emergency Department Note Patient Name: Charity Roca Date of : 1980 42 year old female Treatment Room: [place] [address] Primary Care Physician: Carlos Solano Patient Escorted by: Self [9] Mode of Arrival: Personal means [1] EMS Treatment Prior to ED Arrival: BREAST PULLER treatment: None Chief Complaint: Chief Complaint Patient [...] the ACR Incidental Findings Committee;Journal of the [employer] Volume 7, Issue 10, Pages 727-403, April 2010). CHEST 1 VW Final Result [...] 0.01 - 0.07 10*3/uL COMP. METABOLIC PANEL (28255) - Abnormal NA 138 135 - 145 [...] INTERPRETATION CBC WITH DIFF COMP. METABOLIC PANEL (41747) LIPASE Orders Placed This Encounter Medications ibuprofen [...] ED Physician in the absence of a work order clerk: yes Previous ECG: Previous ECG: Unavailable Interpretation: [...] this a planned re-admission?: No Treatment Team: [facility] [[id number]] Is this patient COVID positive or a patient under investigation (PUI)?: No Electronically signed by: Leeanne Wise NP 02/15/23 191 Associated attestation - Bushra Rios DO - 02/16/2023 7:30 AM CDT I was personally available for consultation in the Emergency Department during this encounter and patient evaluation by Leeanne Wise. [facility]
[2024-10-27] MEDS ORDERED: NA CHLORIDE 0.9% 1,000 ML ONE (21:51)
[2024-10-27 21:58] LABS: Specific Gravity 1.007 (1.005-1.030)
[2024-10-27 22:28] LABS: ALT/SGPT 18 U/L (13-56); Albumin 3.2 g/dL (3.4-5.0); Albumin/Globulin Ratio 0.9 (1.1-1.8); Alkaline Phosphatase 70 U/L (45-117); Anion Gap 8.5 mEq/L (5.0-15.0); BUN Blood Urea Nitrogen 10 mg/dL (7-18); Bicarbonate 25 mEq/L (21-32); Bilirubin Total 0.2 mg/dL (0.2-1.0); Globulin 3.7 g/dL (2.3-3.5); Glomerular Filtration Rate 103 ml/min (=/>90); Glucose Level 109 mg/dL (74-106); Lipase 33 U/L (13-75); Potassium 3.5 mEq/L (3.5-5.1); Protein, Total 6.9 g/dL (6.4-8.2); Sodium Level 138 mEq/L (136-145)
[2024-10-27] MEDS ORDERED: MAGNES/ALUMIN/SIMET 30ML UCUP ONE (22:29)
[2024-10-27] MEDS ORDERED: FAMOTIDINE 20 MG/2 ML VIAL IV ONE (22:29)
[2024-10-27 22:30] LABS: AST/SGOT < 10 U/L (15-37)
[2024-10-27] MEDS ORDERED: LIDOCAINE VISCOUS 2% 10ML ORAL SOLN ONE (22:30)
[2024-10-27 22:38] LABS: Absolute Basophils 0.1 K/uL (0-0.5); Absolute Eosinophils 0.2 K/uL (0-0.5); Absolute Lymphocytes (CBC) 2.9 K/uL (0.7-4.9); Absolute Monocytes 0.5 K/uL (0.1-1.3); Basophils % 0.7 % (0-1.3); Hemoglobin 12.4 g/dL (12.0-15.0); Lymphocytes % 33.2 % (15.3-44.8); MCH 26.1 pg (27.0-35.0); MCHC 33.6 g/dL (32.0-36.0); MCV 77.6 fL (80-100); MPV 7.4 fL (7.6-11.3); Monocytes % 6.3 % (3.3-12.3); Neutrophils % 57.8 % (41.7-73.7); Platelets 382 thou/uL (152-406); RBC Red Blood Cell Count 4.77 M/uL (3.86-4.86); Red Cell Distribution Width 19.3 % (12.1-15.2)
--- NOTE | 2024-10-27 22:45 | ER ---
Nurse's Notes [facility] Name: Charity Hanks Age: 44 yrs Sex: Female : 1980 Arrival Date: 10/27/2024 Time: 20:24 Bed 13 Private MD: Diagnosis: Upper abdominal pain, unspecified Presentation: 10/27 20:49 Chief complaint: Patient states: Epigastric pain that radiates to LUQ onset today. Pt cm10 also reports nausea. Pt reports taking toradol, bentyl, and hydrocodone with no relief. Coronavirus screen: Client denies travel out of the [place] in the last 14 days. Ebola Screen: Patient denies travel to an Ebola-affected area in the 21 days before illness onset. Initial Sepsis Screen: Does the patient meet any 2 criteria? No. Patient's initial sepsis screen is negative. Does the patient have a suspected source of infection? No. Patient's initial sepsis screen is negative. Risk Assessment: Do you want to hurt yourself or someone else? Patient reports no desire to harm self or others. Onset of symptoms was October 27, 2024. 20:49 Method Of Arrival: Ambulatory cm10 20:49 Acuity: CARLOS 3 cm10 Triage Assessment: 20:51 General: Appears uncomfortable, Behavior is calm, cooperative. Pain: Complains of pain cm10 in epigastric area Pain radiates to left upper quadrant Pain currently is 9 out of 10 on a pain scale. Quality of pain is described as sharp. Neuro: No deficits noted. Level of Consciousness is awake, alert, obeys commands, Oriented to person, place, time, situation, Appropriate for age. Respiratory: No deficits noted. Airway is patent Respiratory effort is even, unlabored, Respiratory pattern is regular, symmetrical. LAN SUPPORT SPECIALIST: 20:51 LMP 10/21/2024, unknown cm10 Historical: - Allergies: 20:51 No Known Allergies; cm10 - PMHx: 20:51 Anxiety; depressive disorder; Hypertensive disorder; Myocardial infarction; cm10 Pancreatitis; PTSD; - PSHx: 20:51 cardiac stent; cm10 - Immunization history:: Adult Immunizations up to date. - Infectious Disease History:: Denies. - Social history:: Smoking status: unknown. Screenin:30 [facility] ED Fall Risk Assessment (Adult) History of falling in the last 3 months, me1 including since admission No falls in past 3 months (0 pts) Confusion or Disorientation No (0 pts) Intoxicated or Sedated No (0 pts) Impaired Gait No (0 pts) Mobility Assist Device Used No (0 pt) Altered Elimination No (0 pt) Score/Fall Risk Level 0 - 2 = Low Risk Maintained a safe environment, Provided non-skid footwear, Hourly rounding (assess needs \T\ fall precautionary measures) done. Abuse screen: Denies threats or abuse. Nutritional screening: No deficits noted. Tuberculosis screening: No symptoms or risk factors identified. Assessment: 21:30 General: Appears uncomfortable, Behavior is calm, cooperative, appropriate for age, me1 Reports Epigastric pain that radiates to LUQ onset today. Pt also reports nausea. Pt reports taking toradol, bentyl, and hydrocodone with no relief. Pain: Complains of pain in epigastric area Pain radiates to left upper quadrant Pain currently is 9 out of 10 on a pain scale. Quality of pain is described as sharp, Pain began gradually, Is continuous. Neuro: Level of Consciousness is awake, alert, obeys commands, Oriented to person, place, time, situation, Appropriate for age. Cardiovascular: Patient's skin is warm and dry. Respiratory: Airway is patent Respiratory effort is even, unlabored, Respiratory pattern is regular, symmetrical. GI: Abdomen is non-distended, Bowel sounds present X 4 quads. Abd is soft and non tender Reports upper abdominal pain, nausea. : No signs and/or symptoms were reported regarding the genitourinary system. EENT: No signs and/or symptoms were reported regarding the EENT system. Derm: Skin is intact, is healthy with good turgor, Skin is pink, warm \T\ dry. Musculoskeletal: No signs and/or symptoms reported regarding the musculoskeletal system. Vital Signs: 20:52 BP 176 / 108; Pulse 88; Resp 15; Temp 98.5; Pulse Ox 97% on R/A; Weight 108.86 kg; cm10 Height 5 ft. 3 in. ; Pain 9/10; 21:30 BP 145 / 68; Pulse 83; Resp 17; Pulse Ox 99% ; me1 22:30 BP 114 / 76; Pulse 77; Resp 16; Temp 98.6; Pulse Ox 97% ; me1 22:43 Pain 7/10; me1 20:52 Body Mass Index 42.51 (108.86 kg, 160.02 cm) cm10 20:52 Pain Scale: Adult cm10 22:43 Pain Scale: Adult me1 ED Course: 20:26 Patient arrived in ED. gm2 20:51 Triage completed. cm10 20:51 Arm band placed on right wrist. Patient placed in waiting room. cm10 21:06 Steffany Becerra MD is Attending Physician. gb1 21:30 Patient has correct armband on for positive identification. Bed in low position. Call me1 light in reach. Side rails up X2. Provided Education on: POC. Verbalized understanding.. Client placed on continuous cardiac and pulse oximetry monitoring. NIBP monitoring applied. Pulse ox on. NIBP on. 21:30 No provider procedures requiring assistance completed. me1 21:34 Yaritza Jane, JAMES is Primary Nurse. me1 21:53 Test, Urine Sent. me1 21:53 Urine collected: clean catch specimen, clear. me1 21:57 Inserted saline lock: 20 gauge in right Blood collected. Flushed with 10 mL NS. af3 21:57 Initial lab(s) drawn, by me, sent to lab. af3 23:00 IV discontinued, intact, bleeding controlled, No redness/swelling at site. Pressure me1 dressing applied. Administered Medications: 21:59 Drug: NS 0.9% IV 1000 ml IV at 1000 ml once; to be given as a bolus over 60 minutes me1 Route: IV; Rate: 1000 ml; Site: left antecubital; 23:00 Follow up: Response: No adverse reaction; IV Status: Completed infusion; IV Intake: me1 1000ml 22:32 Drug: Famotidine IVP 10 mg IVP once; dilute with 10 mL 0.9% NaCl; give over 2 minutes me1 Route: IVP; Site: left antecubital; 22:43 Follow up: Response: No adverse reaction me1 22:33 Not Given ( not availablee): GI Cocktail with - (maaloxsuspension 30 me1 ml, lidocaine mucous membrane liquid 2 % 20 ml, phenobarbital-nqaxplosio63 ml) PO once 22:33 Drug: GI Cocktail without - (Maalox PO 30 ml, Lidocaine Mucous Membrane 2 % 15 me1 ml) PO once Route: PO; 22:43 Follow up: Pain 7/10 Adult; Response: No adverse reaction; Pain is decreased me1 Medication: 21:30 VIS not applicable for this client. me1 Intake: 23:00 IV: 1000ml; Total: 1000ml. me1 Outcome: 22:44 Discharge ordered by . gb1 23:00 Discharged to home ambulatory, me1 23:00 Condition: stable 23:00 Discharge instructions given to patient, Instructed on discharge instructions, follow up and referral plans. medication usage, Demonstrated understanding of instructions, follow-up care, medications, Prescriptions given X 1, 23:00 Patient left the ED. me1 Signatures: Keiry Heard RN RN cm10 Yaritza Jane RN RN me1 Steffany Becerra MD MD gb1 Lola To gm2 Anusha Summers af3 Corrections: (The following items were deleted from the chart) 22:41 20:49 Chief complaint: Patient states: Epigastric pain that radiates to LUQ onset me1 today. Pt also reports nausea. Pt reports taking toradol, bentyl, and hydrocodone with no relief. cm10 22:56 22:30 BP 114 / 76; Pulse 77bpm; Resp 16bpm; Pulse Ox 97%; me1 me1
--- NOTE | 2024-10-27 22:45 | EDPHYS ---
Physician Documentation [facility] Name: Charity Hanks Age: 44 yrs Sex: Female : 1980 Arrival Date: 10/27/2024 Time: 20:24 Bed 13 Private MD: ED Physician Steffany Becerra HPI: 10/27 22:45 This 44 yrs old Female presents to ER via Ambulatory with complaints of gb1 Abdominal Pain. 22:45 44-year-old female with midepigastric pain and nausea no vomiting. She has a history of gb1 chronic pancreatitis and has been eating out a very poor diet recently. She denies alcohol abuse and she does smoke cigarettes. She denies THC use. Patient denies any diarrhea or fever. She does not have a gallbladder. She has a history of anxiety, depression, hypertension, DC in as after mentioned pancreatitis.. 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 - Infectious Disease History:: Denies. - Social history:: Smoking status: unknown. Exam: 22:45 Constitutional: This is a well developed, well nourished patient who is awake, alert, gb1 and in no acute distress. Head/Face: Normocephalic, atraumatic. Eyes: Pupils equal round and reactive to light, extra-ocular motions intact. Lids and lashes normal. Conjunctiva and sclera are non-icteric and not injected. Cornea within normal limits. Periorbital areas with no swelling, redness, or edema. ENT: Nares patent. No nasal discharge, no septal abnormalities noted. Tympanic membranes are normal and external auditory canals are clear. Oropharynx with no redness, swelling, or masses, exudates, or evidence of obstruction, uvula midline. Mucous membranes moist. Neck: Trachea midline, no thyromegaly or masses palpated, and no cervical lymphadenopathy. Supple, full range of motion without nuchal rigidity, or vertebral point tenderness. No Meningismus. Chest/axilla: Normal chest wall appearance and motion. Nontender with no deformity. No lesions are appreciated. Cardiovascular: Regular rate and rhythm with a normal S1 and S2. No gallops, murmurs, or rubs. Normal PMI, no JVD. No pulse deficits. Respiratory: Lungs have equal breath sounds bilaterally, clear to auscultation and percussion. No rales, rhonchi or wheezes noted. No increased work of breathing, no retractions or nasal flaring. Abdomen/GI: Soft, tenderness mildly at the mid epigastrium, with normal bowel sounds. No distension or tympany. No guarding or rebound. Back: No spinal tenderness. No costovertebral tenderness. Full range of motion. Skin: Warm, dry with normal turgor. Normal color with no rashes, no lesions, and no evidence of cellulitis. MS/ Extremity: Pulses equal, no cyanosis. Neurovascular intact. Full, normal range of motion. Vital Signs: 20:52 BP 176 / 108; Pulse 88; Resp 15; Temp 98.5; Pulse Ox 97% on R/A; Weight 108.86 kg; cm10 Height 5 ft. 3 in. ; Pain 9/10; 21:30 BP 145 / 68; Pulse 83; Resp 17; Pulse Ox 99% ; me1 22:30 BP 114 / 76; Pulse 77; Resp 16; Temp 98.6; Pulse Ox 97% ; me1 22:43 Pain 7/10; me1 20:52 Body Mass Index 42.51 (108.86 kg, 160.02 cm) cm10 20:52 Pain Scale: Adult cm10 22:43 Pain Scale: Adult me1 MDM: 21:08 Medical Screening Exam initiated gb1 22:45 ED course: 44-year-old female with midepigastric tenderness, doubt small bowel gb1 obstruction acute appendicitis or biliary obstruction. Patient has a surgically absent gallbladder at this time doubt gallstone pancreatitis. Patient's LFTs are normal T. bili is normal at this time her lipase is also normal I doubt a chronic pancreatitis acute exacerbation of that. I did recommend that the patient start Carafate and give her explicit diet precautions for gastritis. 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 Patient is compliant with plan of care prior to discharge home today.-. 10/27 20:53 Order name: CBC with Diff; Complete Time: 22:44 cm10 10/27 20:53 Order name: CMP; Complete Time: 22:44 cm10 10/27 20:53 Order name: Lipase; Complete Time: 22:44 cm10 10/27 20:53 Order name: Test, Urine; Complete Time: 22:19 cm10 10/27 20:53 Order name: IV Saline Lock; Complete Time: 21:56 cm10 10/27 20:53 Order name: Labs collected and sent; Complete Time: 21:56 cm10 Administered Medications: 21:59 Drug: NS 0.9% IV 1000 ml IV at 1000 ml once; to be given as a bolus over 60 minutes me1 Route: IV; Rate: 1000 ml; Site: left antecubital; 23:00 Follow up: Response: No adverse reaction; IV Status: Completed infusion; IV Intake: me1 1000ml 22:32 Drug: Famotidine IVP 10 mg IVP once; dilute with 10 mL 0.9% NaCl; give over 2 minutes me1 Route: IVP; Site: left antecubital; 22:43 Follow up: Response: No adverse reaction me1 22:33 Not Given ( not availablee): GI Cocktail with - (maaloxsuspension 30 me1 ml, lidocaine mucous membrane liquid 2 % 20 ml, phenobarbital-aylimxpplv53 ml) PO once 22:33 Drug: GI Cocktail without - (Maalox PO 30 ml, Lidocaine Mucous Membrane 2 % 15 me1 ml) PO once Route: PO; 22:43 Follow up: Pain 7/10 Adult; Response: No adverse reaction; Pain is decreased me1 Disposition Summary: 10/27/24 22:44 Discharge Ordered Notes: Location: Home gb1 Problem: an acute exacerbation gb1 Symptoms: have improved gb1 Condition: Stable gb1 Diagnosis - Upper abdominal pain, unspecified gb1 Followup: gb1 - With: Private Physician - When: - Reason: Recheck today's complaints Discharge Instructions: - Discharge Summary Sheet gb1 - Gastritis, Adult gb1 Forms: - Medication Reconciliation Form gb1 - Antibiotic Education gb1 - Prescription Opioid Use gb1 - Patient Portal Instructions gb1 - Leadership Thank You Letter gb1 Prescriptions: - Carafate 1 gram Oral Tablet - take 1 tablet ORAL route 4 times per day take on an empty stomach, beginning on gb1 waking and last dose at bedtime; 100 tablet; Refills: 0, Product Selection Permitted Signatures: Dispatcher [employer] Keiry Wise, RN RN cm10 Yaritza Jane RN RN me1 Steffany Becerra MD MD gb1 Corrections: (The following items were deleted from the chart) 20:54 20:54 CBC+H.LAB.BRZ ordered. EDMS EDMS 20:54 20:54 COMPREHENSIVE METABOLIC PANEL+C.LAB.BRZ ordered. EDMS EDMS 20:54 20:54 LIPASE+C.LAB.BRZ ordered. EDMS EDMS 20:54 20:54 Test, Urine+UC.LAB.BRZ ordered. EDMS EDMS 22:48 22:45 ED course: 44-year-old female with midepigastric tenderness, doubt small bowel gb1 suction acute appendicitis or biliary obstruction. Patient has a surgically absent gallbladder at this time doubt gallstone pancreatitis. Patient's LFTs are normal T. bili is normal at this time her lipase is also normal I doubt a chronic pancreatitis acute exacerbation of that. I did recommend that the patient start Carafate and give her explicit diet precautions for gastritis. 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 Patient is compliant with plan of care prior to discharge home today.. gb1
[2024-10-27 23:25] VITALS: BP 114/76; TEMP 98.6; O2SAT 97
== END 2024-10-27 23:00 | disposition home or self-care (01) ==
LOC: ER 20:24
DX: R10.13 Epigastric pain (principal); R11.0 Nausea; F17.210 Nicotine dependence, cigarettes, uncomplicated; Z95.818 Presence of other cardiac implants and grafts
CPT/HCPCS: 96361; 85025; 36415; 81025; 83690; 80053; 96374; 99284; J7030

== ENCOUNTER 2024-11-11 20:23 | Emergency (ER) | payer OTHER ==
--- OUTSIDE RECORDS SUMMARY | 2024-11-11 20:45 | XMS REPORT | Continuity of Care Document ---
Author Name Unknown Address [address] [facility] [address] [place] [address] [facility] Address [address] [facility] [address] [place] [address] Support Name Relationship Address Phone RACHEL CASH Father Unknown Unavailable MD TAVARES MG JR, JR. A Emergency Provider [address] [place] [address] JAN COX natural parent [address] [address] PIYUSH JUAREZ natural parent [address] [place] [address] CHARITY ROCA Guarantor [address] [place] [address] PHYSICIAN, NO Primary Care Physician Unknown Unav ailable MD MORA POLLOCK Emergency Provider [address] [place] [address] MD SHERIDAN MCMANUS Emergency Provider [facility], [place] [address] MD RIDDH[place] [address] MD AN IRIZARRY Emergency Provider [facility], [place] [address] MD CARLOS SOLANO A Primary Care Physician [address] [facility] 3 [place] [address] OTHER, ENTER NAME IN NOTES Primary Care Physician Unknown Unavailable MD Arelis Kern Emergency Provider [address] [place] [address] MD SHAN BUSCH Attending Provider [address] [place] [address] Leyda Villa Mother Unknown Unavailable Rachel Cox Father [address] [place] [address] one else per patient, No Emergency Contact Unknown Unavailable Rachel Cox Father [address] [place] [address] 1 Personal Relationship Unknown Unavai lable Unavailable Personal Relationship Unknown Unavai lable Rachel Cox Father [address] [place] [address] PATIENT, NO ONE ELSE PER Personal Relationship Unknown Unavailable Care Team Providers Care Sash Assembler Name Role Phone OTHER, ENTER NAME IN NOTES Primary Care Physicia n Unavailable CHRISTINA PAGE Attending Clinician Unavailable CYNTHIA ROMEO Attending Clinician Unavailable JOANNE MONTES Attending Clinician Unavailable CATHY STRICKLAND Attending Clinician Unavailable TYLER MAN Attending Clinician Unavailable OLIVIA GARCIA Attending Clinician Unavailable OLIVIA GARCIA Attending Clinician Unavailable Olivia Garcia MD Attending Clinician [phone] Piper Mercedes LVN Attending Clinician [phone] JUDD SANDRA Attending Clinician Unavailab JUDD Kessler Attending Clinician Unavailab Jesús Shipman MD Attending Clinician [phone] Judd Sandra MD Attending Clinician [phone] Lidia Kwok MD Attending Clinician [phone] Dane Jurado MD Attending Clinician [phone] FLORINDA REYES Attending Clinician Unavailable LEVAR BARKER Attending Clinician Unavailable LEVAR BARKER Attending Clinician Unavailable Levar Barker MD Attending Clinician [phone] GISELLE OSORIO Attending Clinician Unavailable MD BEHZAD Attending Clinician Unavailab CONRADO Pendleton Attending Clinician Unavailable JÚNIOR FARRELL Attending Clinician Unavailable Saleem EDWARD Attending Clinician Unavailable Saleem EDWARD Attending Clinician Unavailable Wagner PAC, Saleem Knowles Attending Clinician [phone] RADIOLOGY, DEPT Attending Clinician Unavailable SANDY GARCIA Attending Clinician Unavailable SANDY GARCIA Attending Clinician Unavailable Sandy Walker Attending Clinician + [phone] ANNALISE WRIGHT Attending Clinician Unavailable Annalise Wright PA-C Attending Clinician + [phone] Attending Clinician Unavailable Alesha Roy MD Attending Clinician + ARELIS KERN Attending Clinician Unavailab FARTUN Bernal Attending Clinician Unavailable TAVARES MG JR Attending Clinician Unachristina Rojo NP, Leigh Attending Clinician [phone] COSMO Attending Clinician Unavailable SHERIDAN MCMANUS Attending Clinician UnavailROBERTO Melgar Attending Clinician Unavailable Roberto Richards MD Attending Clinician + SHAN BUSCH Attending Clinician Unavailable RIDDHI MYLES Attending Clinician UnavailAN Garcia Attending Clinician Unavailable NARAYAN NARVAEZ Attending Clinician Unavailable Narayan Narvaez DO Attending Clinician + BRITTNI PADGETT Attending Clinician Unavailable Dayron PATRICIA, Brittni S Attending Clinician [phone] JESÚS MONTERO Attending Clinician Unavailable Leeanne Wise NP Attending Clinician + Jesús Montero MD Attending Clinician + FELTON Attending Clinician Unavailable MELIDA LONGORIA Attending Clinician Unavailable Melida Longoria MD Attending Clinician + WIL MCQUEEN Attending Clinician Unavailable Wil Joseph Attending Clinician + DEE WANG Attending Clinician Unavaila Dee Streeter Attending Clinician +1 Doctor Unassigned, [place] Attending Clinician U CEM Lance Attending Clinician Unavailable Cem Choi MD Attending Clinician [phone] Shelley Rosas RN Attending Clinician [phone] Mo SENIOR POLICY ADVISOR, Bal Attending Clinician +[phone] BAL HASSAN Attending Clinician Unavailable Hernan MEDNIAP, Tremaine Attending Clinician [phone] TREMAINE BECERRA Attending Clinician Unavailable LEEANNE WISE Attending Clinician Unavailable MORA POLLOCK Attending Clinician Unavailable Claudia SENIOR POLICY ADVISOR, Best Odonnell Attending Clinician + [phone] BEST TAYLOR Attending Clinician Unavailable Marbella Rizo RN Attending Clinician Unavailab bailee VILLANUEVA, Abdias Attending Clinician [phone] ABDIAS ROBERTSON Attending Clinician Unavailable Silver RAMIREZ, Kamryn Ayala Attending Clinician Unavail able Bushra Rios DO Attending Clinician + [phone] BUSHRA RIOS Attending Clinician Unavailab SINCERE morocho BA Attending Clinician Unavailable GUMARO ALVAREZ Attending Clinician Unavailable NEIL WILKINS Attending Clinician Unavailabl LISA Valadez Attending Clinician Unavailable JW SOLORZANO Attending Clinician Unavailab SANIA Glover Attending Clinician Unavailable GINA MARTIN Attending Clinician Unavailable YIN RIOS Attending Clinician Unavailab ALBERTO Cason Attending Clinician Unavailable ANTHONY SCHNEIDER Attending Clinician Unavailabl DARCIE Moreno Attending Clinician Unavailable ARLETTE ROBERT Attending Clinician Unavailable GISELA RIOS Attending Clinician Unavail able HUGO COFFMAN Attending Clinician Unavailable LIDIA KWOK Admitting Clinician Unavailable Lidia Kwok MD Admitting Clinician [phone] LEVAR BARKER Admitting Clinician Unavailable OLIVIA GARCIA Admitting Clinician Unavailable Saleem EDWARD Admitting Clinician Unavailable SANDY GARCIA Admitting Clinician Unavailable ANNALISE WRIGHT Admitting Clinician Unavailable OLIVIA GARCIA Admitting Clinician Unavailable ROBERTO RICHARDS Admitting Clinician Unavailable SHAN BUSCH Admitting Clinician Unavailable RIDDHI MYLES Admitting Clinician Unav ailable NARVAEZ, NARAYAN Admitting Clinician Unavailable JESÚS MONTERO Admitting Clinician Unavailable Jesús Montero MD Admitting Clinician [phone] LA NENACHRISTELLE Admitting Clinician Unavailable MELIDA LONGORIA Admitting Clinician Unavailable WIL MCQUEEN Admitting Clinician Unavailable DEE WANG Admitting Clinician UnavailCEM Womack Admitting Clinician Unavailable TREMAINE BECERRA Admitting Clinician Unavailable LEEANNE WISE Admitting Clinician Unavailable Saleem EDWARD Admitting Clinician Unavailable BEST TAYLOR Admitting Clinician Unavailable ABDIAS ROBERTSON Admitting Clinician Unavailable Payers Payer Name Policy Type Policy Number Effective Date Expirati on Date Source [address] 94 9 [id number] 2024 00:00:00 RAMSES Caro/ KELLEE BRITTON [id number] 2023 00:00:00 [facility] BCBS BLUE ADVANTAGE HMO [id number] 2020 00:00:00 Problems Condition Name Condition Details Condition Category Status Onset Date Resolution Date Last Treatment Date Treating Clinician Comments Source Coronary artery disease involving [place] coronary artery of [place] heart with angina pectoris Coronary artery disease involving [place] coronary artery of [place] heart with angina pectoris Disease Active 11-01 00:00: 00 [facility] Dyslipidem ia Dyslipidem ia Disease Active 11-01 00:00: 00 [facility] Generalize d abdominal pain Generalize d abdominal pain Disease Active 2023-07 00:00: 00 [facility] Coronary artery disease Coronary artery disease Disease Active 12-12 00:00: 00 Kellee Buckley - Externa khris Status post arterial stent Status post arterial stent Disease Active 12-12 00:00: 00 Kellee Buckley - Externa khris MICAH (generaliz ed anxiety disorder) MICAH (generaliz ed anxiety disorder) Disease Active 12-02 00:00: 00 Kellee Buckley - Externa l Severe episode of recurrent major depressive disorder, 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, 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) Disease Active 12-02 00:00: 00 Kellee Buckley - Externa khris PTSD (post-trau matic stress disorder) PTSD (post-trau matic stress disorder) Disease Active 12-02 00:00: 00 Kellee pinedo Elevated brain natriureti c peptide (BNP) level Elevated brain natriureti c peptide (BNP) level Disease Active 2020-07 0-02 00:00: 00 [facility] Cigarette smoker Cigarette smoker Disease Active 2020-07 0-02 00:00: 00 [facility] Family history of early CAD Family history of early CAD Disease Active 2020-07 0- 00:00: 00 [facility] Essential hypertensi on Essential hypertensi on Disease Active 2020-07 0- 00:00: 00 [facility] Elevated brain natriureti c peptide (BNP) level Elevated brain natriureti c peptide (BNP) level Disease Active 2020-07 0- 00:00: 00 [facility] Snores Snores Disease Active 2020-07 0- 00:00: 00 [facility] Morbid obesity with body mass index of 40.0-49.9 Morbid obesity with body mass index of 40.0-49.9 Disease Active 2020-07 0-01 00:00: 00 [facility] Abdominal pain [facility] Acute coronary syndrome without high troponin Problem [facility] Adrenal mass Problem [facility] Adrenal nodule [facility] Encounter for counseling regarding advance directives Problem [facility]ergic [facility]initis Problem [facility] Angina pectoris Problem [facility] Anxiety and depression Problem [facility] Chest pain Problem [facility]astroente ritis Problem [facility] Malaise [facility] Otitis externa of left ear Problem [facility] Cyst of ovary Problem [facility] Post traumatic stress disorder (PTSD) Problem [facility] Tobacco abuse [facility] Urinary tract infection Problem [facility] No known active problems No known active problems Disease [facility] Allergies, Adverse Reactions, Alerts Allergy Name Allergy Type Status Severity Reaction(s) Onset Date Inactive Date Treating Clinician Comments Source NO KNOWN ALLERGIE S Drug Class Active [facility] Social History Social Habit Start Date Stop Date Quantity Comments Source History of tobacco use [facility] Gender identity [facility] ASSERTION Possible [facility] History of Occupation [employer] Sexual orientation Saleem Buckley - [...] day from 2 packs per day [facility] Tobacco use and exposure 2023-02-15 00:00:00 2023-02-15 00:00:00 User of smokeless tobacco [facility] Exposure to SARS-CoV-2 (event) 2021-12-30 00:00:00 2022-01-09 16:34:00 Unable to assess [facility] Education 2021-04-07 00:00:00 2021-04-07 00:00:00 13 [facility] Sex assigned at 1980 00:00:00 1980 00:00:00 Kellee Buckley - Samson Smoking Status Start Date Stop Date Source Smokes tobacco daily 2023-02-15 00:00:00 [facility] Unknown if ever smoked [facility] Medications Ordered Medication Name Filled Medication Name Start Date Stop Date Current Medication? Ordering Clinician Indication Dosage Frequency Signature (SIG) Comments Components Source KCL (KLOR-CON M20) tablet 40 mEq 11-11 06:15: 00 11-11 05:28 :00 No 40meq 40 mEq, Oral, ONCE, 1 dose, On Sat11/11/24 at 0115, Routine [facility] iopamidol (ISOVUE 370-500 mL) injection 80 mL 11-11 05:00: 00 11-11 05:00 :00 No [id number] 80mL 80 mL, Intravenou s, ONCE, 1 dose, On Sat11/11/24 at 0000, Routine [facility] morpHINE (4 mg/mL) injection 4 mg 11-11 04:30: 00 11-11 04:29 :00 No 4mg 4 mg, Slow IV Push, ONCE, 1 dose, On Sat11/10/24 at 2330, STAT [facility] ondansetron (ZOFRAN (PF)) injection 4 mg 11-11 02:00: 00 11-11 02:32 :00 No 4mg 4 mg, Slow IV Push, ONCE, 1 dose, On Sat11/10/24 at 2100, Administer over 2-5 Minutes, 2 mL [facility] morpHINE (4 mg/mL) injection 4 mg 11-11 02:00: 00 11-11 02:29 :00 No 4mg 4 mg, Slow IV Push, ONCE, 1 dose, On Sat11/10/24 at 2100, STAT [facility] lisinopriL 40 mg tablet 11-05 00:00: 00 Yes [id number] 40mg Take 1 tablet by mouth in the morning. [facility] Lidocaine (LIDOCARE) 4 % patch 1 Patch Lidocaine (LIDOCARE) 4 % patch 1 Patch 11-04 17:45: 00 11-04 20:24 :12 Yes 1{patch } 1 Patch, Topical, Administer over 12 Hours, ONCE, 1 dose, On Sat11/04/24 at 1245, Routine [facility] magnesium sulfate in water 4 gram/50 mL (8 %) IV Piggyback 4 g magnesium sulfate in water 4 gram/50 mL (8 %) IV Piggyback 4 g 11-04 16:00: 00 11-04 19:04 :00 Yes 4g 4 g, IV Piggyback, at 25 mL/hr Administer over 120 Minutes, ONCE, 1 dose, On Sat11/04/24 at 1100, Routine [facility] clopidogreL 75 mg tablet 11-04 15:24: 11 Yes 75mg Take 1 tablet by mouth in the morning. [facility] aspirin 81 mg EC tablet 11-04 15:24: 11 Yes 81mg Take 1 tablet by mouth in the morning. [facility] isosorbide mononitrate 60 mg 24 hr tablet 11-04 15:24: 11 Yes 60mg Take 1 tablet by mouth in the morning. [facility] hydrOXYzine 50 mg tablet 11-04 15:24: 11 Yes 50mg Take 1 tablet by mouth every 12 (twelve) hours as needed for Anxiety. [facility] haloperidoL 2 mg tablet 11-04 15:24: 11 Yes 2mg Take 1 tablet by mouth at bedtime. [facility] rosuvastati n 20 mg tablet 11-04 15:24: 10 11-04 00:00 :00 No 20mg Take 1 tablet by mouth at bedtime. [facility] rosuvastati n 40 mg tablet 11-04 00:00: 00 Yes [id number] 40mg Take 1 tablet by mouth at bedtime. [facility] metoprolol tartrate 25 mg tablet 11-04 00:00: 00 Yes [id number] 12.5mg Take 0.5 tablets by mouth in the morning and 0.5 tablets in the evening. [facility] aminophylli ne 50 mg in NaCl 0.9% (NS) 2 mL piggyback 11-03 19:44: 46 11-03 20:03 :14 No ONCE INTRA PROCEDURE, Starting on Sat11/03/24 at 1444, Until Sat11/03/24 at 1503, CV Intraproce dure [facility] adenosine diagnostic (ADENOSCAN) injection 11-03 19:10: 54 11-03 20:03 :14 No CONTINUOUS PRN, Starting on Sat11/03/24 at 1410, Until Sat11/03/24 at 1503, Routine, CV Intraproce dure [facility] heparin 1,000 unit/mL injection 11-03 18:45: 11 11-03 20:03 :14 No ONCE INTRA PROCEDURE, Starting on Sat11/03/24 at 1345, Until Sat11/03/24 at 1503, Routine, CV Intraproce dure [facility] nitroglycer in (TRIDIL) 2 mg in 10 mL D5W for Cardiac Cath 11-03 18:29: 27 11-03 20:03 :14 No ONCE INTRA PROCEDURE, Starting on Sat11/03/24 at 1329, Until Sat11/03/24 at 1503, Routine, CV Intraproce dure [facility] lidocaine 1% (PF) (XYLOCAINE) injection 11-03 18:13: 12 11-03 20:03 :14 No ONCE INTRA PROCEDURE, Starting on Sat11/03/24 at 1313, Until Sat11/03/24 at 1503, Routine, CV Intraproce dure [facility] midazolam (VERSED) 1 mg/mL injection 11-03 18:12: 08 11-03 20:03 :14 No ONCE INTRA PROCEDURE, Starting on Sat11/03/24 at 1312, Until Sat11/03/24 at 1503, Routine, CV Intraproce dure [facility] FENTanyl (PF) (SUBLIMAZE) injection 11-03 18:11: 52 11-03 20:03 :14 No ONCE INTRA PROCEDURE, Starting on Sat11/03/24 at 1311, Until Sat11/03/24 at 1503, Routine, CV Intraproce dure [facility] metoprolol tartrate (LOPRESSOR) tablet 12.5 mg metoprolol tartrate (LOPRESSOR) tablet 12.5 mg 11-03 13:00: 00 11-04 22:34 :20 Yes 12.5mg 12.5 mg, Oral, BID, First dose on Sat11/03/24 at 0800, Until Discontinu ed, Routine [facility] famotidine (PEPCID AC) tablet 20 mg famotidine (PEPCID AC) tablet 20 mg 11-02 14:00: 00 11-04 20:24 :12 Yes 20mg 20 mg, Oral, DAILY, First dose (after last modificati on) on Sat11/02/24 at 0900, Until Discontinu ed, Routine [facility] rosuvastati n (CRESTOR) tablet 40 mg rosuvastati n (CRESTOR) tablet 40 mg 11-02 02:00: 00 11-04 22:34 :20 Yes 40mg 40 mg, Oral, QHS, First dose (after last modificati on) on Sat11/01/24 at 2100, Until Discontinu ed, Routine [facility] haloperidoL (HALDOL) tablet 2 mg haloperidoL (HALDOL) tablet 2 mg 11-02 02:00: 00 11-04 20:24 :11 Yes 2mg 2 mg, Oral, QHS, First dose on Sat11/01/24 at 2100, Until Discontinu ed, Routine [facility] morpHINE injection 2 mg morpHINE injection 2 mg 11-02 00:15: 06 11-04 16:59 :14 Yes 2mg 2 mg, Slow IV Push, Q4HPRN, Starting on Sat11/01/24 at 1915, Until Sat11/04/24 at 1159, Routine, Chest pain, Pain (scale 7-10) [facility] HYDROcodone -acetaminop hen (NORCO 5) tablet 1 tablet HYDROcodone -acetaminop hen (NORCO 5) tablet 1 tablet 11-02 00:14: 58 11-04 16:59 :14 Yes 1{tbl} 1 tablet, Oral, Q6HPRN, Starting on Sat11/01/24 at 1914, Until Sat11/04/24 at 1159, Routine, Pain (scale 4-6) [facility] morpHINE injection 4 mg morpHINE injection 4 mg 11-01 23:25: 45 11-01 23:34 :04 Yes 4mg 4 mg, Slow IV Push, Q4HPRN, Starting on Sat11/01/24 at 1825, Until Sat11/01/24 at 1834, Routine, Chest pain [facility] acetaminoph en (TYLENOL) tablet 650 mg 11-01 23:14: 29 11-04 20:24 :12 No 650mg [facility] morpHINE (4 mg/mL) injection 4 mg morpHINE (4 mg/mL) injection 4 mg 11-01 17:39: 53 11-01 23:25 :45 Yes 4mg 4 mg, Slow IV Push, Q4HPRN, Starting on Sat11/01/24 at 1239, Until Sat11/01/24 at 1825, Routine, Chest pain [facility] nitroglycer in (NITROSTAT) sublingual tablet 0.4 mg nitroglycer in (NITROSTAT) sublingual tablet 0.4 mg 11-01 17:35: 41 11-04 20:24 :12 Yes .4mg 0.4 mg, Sublingual , Q5MIN PRN, Starting on Sat11/01/24 at 1235, Until Sat11/04/24 at 1524, Routine, Chest pain [facility] heparin 25,000 Units/250 mL (Premixed Bag) in 0.45 % NS heparin 25,000 Units/250 mL (Premixed Bag) in 0.45 % NS 11-01 17:30: 00 11-03 21:07 :34 Yes 0U/h 0-2,750 Units/hr (0-27.5 mL/hr), IV Infusion, CONTINUOUS , Starting on 11/01/24 at 1230, Initiate infusion at 1,000 Units/hr (calculate d at 12 units/kg/h r, rounded to the closest 50 units) DO NOT Exceed the MAXIMUM 1,000 units/hr for initiation of heparin infusion. CAUTION - If LMWH given in ER, AVOID bolus and start next dose/drip 12 hrs after ER dosage. Must program rate using programmab le infusion pump. Check with the ordering provider first prior to any administra tion should the patient be on existing/a dditional anticoagul ant therapy. Range, Dosing and Testing: FOR [place] - aPTT < 35: Bolus 5000 units, increase rate 300 units/hr - aPTT 35-44: Bolus 3000 units, increase rate 200 units/hr - aPTT 45-54: Increase rate 100 units/hr - aPTT 55-85: NO CHANGE - aPTT 86-95: Decrease rate 100 units/hr - aPTT 96-120: Hold 30 minutes, decrease rate 150 units/hr - aPTT > 120: Hold 60 minutes, decrease rate 200 units/hr Check aPTT 6 hours after initiation , then Q6H after every change, aPTT Q12H once therapeuti c levels are reached. FOR [facility] ONLY - aPTT < 40: Bolus 5000 units, increase rate 300 units/hr - aPTT 40-49: Bolus 3000 units, increase rate 200 units/hr - aPTT 50-59: Increase rate 100 units/hr - aPTT 60-85: NO CHANGE - aPTT 86-95: Decrease rate 100 units/hr - aPTT 96-120: Hold 30 minutes, decrease rate 150 units/hr - aPTT > 120: Hold 60 minutes, decrease rate 200 units/hr Check aPTT 6 hours after initiation , then Q6H after every change, aPTT Q12H once therapeuti c levels are reached. DO NOT ADJUST INITIAL BOLUS OR INITIAL INFUSION RATE. [facility] HEPARIN SODIUM (PORCINE) 1,000 UNIT/ML BOLUS ACS ORDER SET [id number] 4-27 17:30: 00 11-01 19:27 :00 Yes 4000U 4,000 Units, IV Push, ONCE, 1 dose, On Sat11/01/24 at 1230, ROSELYN [facility] heparin (1,000 unit/mL, 10 mL vial) for Rebolusing [id number] 4-27 17:27: 37 11-04 20:24 :12 Yes 3000U FOR REBOLUSING , Starting on Sat11/01/24 at 1227, Until Sat11/04/24 at 1524, Routine, Dosing based on aPTT testing parameters (refer to continuous heparin drip order). [facility] lisinopriL (PRINIVIL,Z ESTRIL) tablet 40 mg lisinopriL (PRINIVIL,Z ESTRIL) tablet 40 mg 11-01 14:00: 00 11-04 22:34 :20 Yes 40mg 40 mg, Oral, DAILY, First dose on Sat11/01/24 at 0900, Until Discontinu ed, Routine [facility] isosorbide mononitrate (IMDUR) 24 hr tablet 60 mg isosorbide mononitrate (IMDUR) 24 hr tablet 60 mg 11-01 14:00: 00 11-04 20:24 :11 Yes 60mg 60 mg, Oral, DAILY, First dose on Sat11/01/24 at 0900, Until Discontinu ed, Routine [facility] aspirin EC tablet 81 mg aspirin EC tablet 81 mg 11-01 14:00: 00 11-04 20:24 :11 Yes 81mg 81 mg, Oral, DAILY, First dose on Sat11/01/24 at 0900, Until Discontinu ed, Routine [facility] clopidogreL (PLAVIX) 75 mg tablet 75 mg clopidogreL (PLAVIX) 75 mg tablet 75 mg 11-01 14:00: 00 11-04 20:24 :11 Yes 75mg 75 mg, Oral, DAILY, First dose on Sat11/01/24 at 0900, Until Discontinu ed, Routine [facility] enoxaparin (LOVENOX) injection 40 mg enoxaparin (LOVENOX) injection 40 mg 11-01 14:00: 00 11-01 17:27 :16 Yes 40mg 40 mg, Subcutaneo us, DAILY, First dose on Sat11/01/24 at 0900, Until Discontinu ed, Routine [facility] perflutren protein-A microsphr (OPTISON) injection 3 mL 11-01 13:45: 00 11-01 13:45 :00 No [id number] 3mL 3 mL, IV Push, ONCE, 1 dose, On Sat11/01/24 at 0845, Routine [facility] famotidine (PEPCID AC) tablet 20 mg famotidine (PEPCID AC) tablet 20 mg 11-01 13:00: 00 11-02 00:40 :46 Yes 20mg 20 mg, Oral, BID, First dose on Sat11/01/24 at 0800, Until Discontinu ed, Routine [facility] morphine (2 mg/mL) injection 2 mg morphine (2 mg/mL) injection 2 mg 11-01 10:00: 00 11-01 09:28 :00 Yes 2mg 2 mg, Slow IV Push, ONCE, 1 dose, On Sat11/01/24 at 0500, Routine [facility] NaCl 0.9% (NS) IV infusion 1,000 mL 11-01 09:30: 00 11-02 16:23 :00 No 1000mL at 75 mL/hr, IV Infusion, ONCE, 1 dose, On Sat11/01/24 at 0430, Routine [facility] ALPRAZolam (XANAX) tablet 1 mg [id number] 4-27 06:46: 25 11-01 23:35 :16 Yes 1mg 1 mg, Oral, BIDPRN, Starting on 11/01/24 at 0146, Until 11/01/24 at 1835, Routine, Anxiety [facility] methocarbam oL (ROBAXIN) tablet 500 mg methocarbam oL (ROBAXIN) tablet 500 mg 11-01 06:45: 47 11-04 20:24 :11 Yes 500mg 500 mg, Oral, Q6HPRN, Starting on 11/01/24 at 0145, Until Sat11/04/24 at 1524, Routine, Muscle Spasms [facility] ketorolac (TORADOL) injection 15 mg ketorolac (TORADOL) injection 15 mg 11-01 04:50: 40 11-01 23:34 :04 Yes 15mg 15 mg, Slow IV Push, Q6HPRN, Starting on 10/31/24 at 2350, Until 11/01/24 at 1834, Routine, Pain (scale 7-10) [facility] ondansetron (ZOFRAN (PF)) injection 4 mg ondansetron (ZOFRAN (PF)) injection 4 mg 11-01 04:50: 11 11-04 20:24 :11 Yes 4mg 4 mg, Slow IV Push, Q6HPRN, Starting on 10/31/24 at 2350, Until 11/04/24 at 1524, Administer over 2-5 Minutes, 2 mL [facility] morpHINE (4 mg/mL) injection 4 mg 11-01 04:15: 00 11-01 04:06 :00 No 4mg 4 mg, Slow IV Push, ONCE, 1 dose, On 10/31/24 at 2315, STAT [facility] maalox/diph enhydrAMINE :lidocaine2 %viscous 1:1:1: suspension (COMPOUNDED ) 11-01 04:15: 11-01 04:06 :00 No 15mL 15 mL, Oral, ONCE, 1 dose, On 10/31/24 at 2315, Routine [facility] morpHINE (4 mg/mL) injection 4 mg 11-01 03:15: 00 11-01 03:10 :00 No 4mg 4 mg, Slow IV Push, ONCE, 1 dose, On 10/31/24 at 2215, STAT [facility] ondansetron (ZOFRAN (PF)) injection 4 mg 11-01 03:15: 00 11-01 03:12 :00 No 4mg 4 mg, Slow IV Push, ONCE, 1 dose, On 10/31/24 at 2215, Administer over 2-5 Minutes, 2 mL [facility] nitroglycer in (NITROSTAT) sublingual tablet 0.4 mg 11-01 03:15: 00 11-01 02:58 :00 No .4mg 0.4 mg, Sublingual , ONCE, 1 dose, On 10/31/24 at 2215, ROSELYN [facility] iopamidol (ISOVUE 370-500 mL) injection 100 mL 10-24 04:30: 00 10-24 04:30 :00 No [id number] 100mL 100 mL, Intravenou s, ONCE, 1 dose, On Sat10/23/24 at 2330, Routine [facility] cefTRIAXone (ROCEPHIN) 1,000 mg in water for injection, sterile 10 mL IV Push 10-24 03:00: 00 10-24 02:54 :00 No 1000mg 1,000 mg, Intravenou s, ONCE, 1 dose, On Sat10/23/24 at 2200, 10 mL, Reason for Anti-Infec tive: Empiric Therapy for Suspected Infection, Empiric Therapy Site: Urine, Duration of therapy: Once (ED) [facility] NaCl 0.9% (NS) bolus infusion 1,000 mL 10-24 01:30: 00 10-24 04:03 :00 No 1000mL at 999 mL/hr, 1,000 mL, IV Infusion, ONCE, 1 dose, On Sat10/23/24 at 2029, STAT [facility] ondansetron (ZOFRAN (PF)) injection 4 mg 10-24 01:30: 00 10-24 02:26 :00 No 4mg 4 mg, Slow IV Push, ONCE, 1 dose, On Sat10/23/24 at 2029, Administer over 2-5 Minutes, 2 mL [facility] morpHINE (4 mg/mL) injection 6 mg 10-24 01:30: 00 10-24 02:22 :00 No 6mg 6 mg, Slow IV Push, ONCE, 1 dose, On Sat10/23/24 at 2029, STAT [facility] hydrOXYzine Pamoate 50 MG oral Capsule 10-23 10:46: 10 10-23 00:00 :00 No [id number] 50mg Q.5D Take 1 capsule (50 mg total) by mouth as needed in the morning and 1 capsule (50 mg total) as needed in the evening for anxiety. [facility] Sertraline HCl 200 MG oral Capsule 10-23 10:16: 17 Yes 1{capsu le} QD Take 1 capsule by mouth daily. [facility] famotidine (PEPCID) 20 mg tablet 10-23 00:00: 00 Yes [id number] 20mg Take 1 tablet by mouth in the morning and 1 tablet in the evening. [facility] hydrOXYzine Pamoate 50 MG oral Capsule 10-23 00:00: 00 Yes [id number] 50mg Q.5D Take 1 capsule (50 mg total) by mouth as needed in the morning and 1 capsule (50 mg total) as needed in the evening for anxiety. [facility] Eszopiclone 2 MG oral Tablet 10-23 00:00: 00 Yes [id number] 2mg QD Take 1 tablet (2 mg total) by mouth nightly Take immediatel y before bedtime. [facility] Ascorbic Acid (Vitamin C) 250 MG oral Tablet 10-23 00:00: 00 Yes [id number] 250mg QD Take 1 tablet (250 mg total) by mouth daily. [facility] cefdinir 300 mg capsule 10-23 00:00: 11-04 00:00 :00 No [id number] 300mg Take 1 capsule by mouth in the morning and 1 capsule in the evening. Do all this for 8 days. [facility] ondansetron 4 mg disintegrat ing tablet 10-23 00:00: 11-01 00:00 :00 No [id number] 4mg Take 1 tablet by mouth every 12 (twelve) hours as needed for Nausea and Vomiting (N/V). [facility] HYDROcodone -acetaminop hen 5-325 mg tablet 10-23 00:00: 00 10-31 04:59 :00 Yes [id number] 1{tbl} Take 1 tablet by mouth every 6 (six) hours as needed for Pain (scale 7-10) for up to 7 days. Indication s: acute pain [facility] Methocarbam ol 750 MG oral Tablet 10-20 00:00: 00 Yes [id number] 750mg QD Take 1 tablet (750 mg total) by mouth daily. [facility] Belsomra 20 MG oral Tablet 10-20 00:00: 00 10-23 00:00 :00 No [id number] 1{tbl} QD TAKE 1 TABLET BY MOUTH EVERY DAY AT NIGHT [facility] Ketorolac Tromethamin e 10 MG oral Tablet 10-15 00:00: 00 Yes [facility] morphine (2 mg/mL) injection 2 mg 10-13 07:30: 00 10-13 07:35 :00 No 2mg 2 mg, Slow IV Push, ONCE, 1 dose, On Sat10/13/24 at 0230, Routine [facility] ondansetron (ZOFRAN (PF)) injection 4 mg 10-13 05:15: 00 10-13 05:20 :00 No 4mg 4 mg, Slow IV Push, ONCE, 1 dose, On Sat10/13/24 at 0015, Administer over 2-5 Minutes, 2 mL [facility] morphine (2 mg/mL) injection 2 mg 10-13 05:15: 00 10-13 05:18 :00 No 2mg 2 mg, Slow IV Push, ONCE, 1 dose, On Sat10/13/24 at 0015, Routine [facility] aspirin chewable tablet 243 mg 10-13 04:00: 00 10-13 04:13 :00 No 243mg 243 mg, Oral, Once, 1 dose, On Sat10/12/24 at 2300, Routine [facility] nitroglycer in (NITROSTAT) sublingual tablet 0.4 mg 10-13 03:55: 07 Yes .4mg 0.4 mg, Sublingual , Q5MIN PRN, 3 doses, Starting on Sat10/12/24 at 2255, Until Discontinu ed, ROSELYN, Chest pain [facility] Haloperidol 1 MG oral Tablet 10-09 00:00: 00 Yes TAKE 1 ORAL TABLET AT BEDTIME FOR 2 WEEKS INCREASE TO 2 ORAL TABLETS AT BEDTIME AFTER 2 WEEKS. [facility] hydrOXYzine HCl 10 MG oral Tablet 10-09 00:00: 00 10-23 00:00 :00 No [facility] Haloperidol 0.5 MG oral Tablet 09-11 00:00: 00 10-23 00:00 :00 No .5mg Take 1 tablet (0.5 mg total) by mouth at bedtime. [facility] Methocarbam ol 750 MG oral Tablet 09-07 00:00: 00 Yes [id number] 750mg Q.25D TAKE 1 TABLET (750 MG TOTAL) BY MOUTH 4 TIMES DAILY. [facility] Belsomra 20 MG oral Tablet 09-07 00:00: 00 Yes [id number] 1{tbl} QD TAKE 1 TABLET BY MOUTH EVERY DAY AT NIGHT [facility] Aspirin Low Dose 81 MG oral Tablet Delayed Response 09-01 00:00: 00 Yes [id number] 81mg QD TAKE 1 TABLET BY MOUTH [...] Tablet Therapy Pack 08-05 00:00: 00 Yes [id number] 1{bebeto} Take 1 bebeto by mouth See Admin Instructio ns Use as directed. [facility] Guaifenesin (Mucinex) 600 MG oral Tablet 12 Hour Sustained Release 08-05 00:00: 00 Yes [id number] 1200mg Q.5D Take 2 tablets (1,200 mg total) by mouth 2 times daily. [facility] Albuterol HFA 108 (90 Base) MCG/ACT IN AERS 08-05 00:00: 00 10-23 00:00 :00 No [id number] 2{puff} Q.25D Inhale 2 puffs into the lungs every 6 hours as needed for wheezing or shortness of breath. [facility]ellee pinedo Belsomra 20 MG oral Tablet 08-04 00:00: 00 Yes [id number] 1{tbl} QD TAKE 1 TABLET BY MOUTH EVERY DAY AT NIGHT [facility] Aspirin Low Dose 81 MG oral Tablet Delayed Response 08-04 00:00: 00 Yes [id number] 81mg QD TAKE 1 TABLET BY MOUTH EVERY DAY [facility] Pantoprazol e Sodium 40 MG oral Tablet Delayed Response 08-04 00:00: 00 Yes 40mg QD Take 1 tablet (40 mg total) by mouth daily. [facility] methylpredn isolone sod succ (SOLU-MEDRO L) injection 125 mg 07-19 08:00: 00 07-19 07:05 :00 No 125mg 125 mg, Slow IV Push, ONCE, 1 dose, On Sat07/19/24 at 0200, Routine [facility] ipratropium -albuteroL (DUONEB) 0.5 mg-3 mg(2.5 mg base)/3 mL nebulizer solution 3 mL 07-19 08:00: 00 07-19 07:04 :00 No 3mL 3 mL, Inhalation , ONCE, 1 dose, On 07/19/24 at 0200, Routine [facility] azithromyci n (ZITHROMAX) tablet 500 mg 07-19 07:00: 00 07-19 07:05 :00 No 500mg 500 mg, Oral, ONCE, 1 dose, On 07/19/24 at 0100, ROSELYN, Reason for Anti-Infec tive: Documented Infection, Documented Infection Site: Respirator y, Duration of Therapy: Once (ED) [facility] iopamidol (ISOVUE 370-500 mL) injection 75 mL 07-19 06:45: 00 07-19 06:45 :00 No [id number] 75mL 75 mL, Intravenou s, ONCE, 1 dose, On 07/19/24 at 0045, Routine [facility] nitroglycer in (NITROL) 2 % ointment 0.5 Inch 07-19 06:00: 00 07-19 05:11 :00 No .5[in_u s] 0.5 Inch, Transderma l (Apply To Skin), ONCE, 1 dose, On 07/19/24 at 0000, [facility] ketorolac (TORADOL) injection 15 mg 07-19 06:00: 00 07-19 05:09 :00 No 15mg 15 mg, Slow IV Push, ONCE, 1 dose, On 07/19/24 at 0000, [facility] azithromyci n (ZITHROMAX Z-BEBETO) 250 mg tablet 07-19 00:00: 00 11-01 00:00 :00 No [id number] 250mg Take 1 tablet by mouth SEE-INSTRU CTIONS. Take 500 mg day 1, then 250 mg days 2 to 5. [facility] predniSONE 20 mg tablet 07-19 00:00: 00 11-01 00:00 :00 No [id number] 1 PO BID x 4 days [facility] Sertraline HCl 50 MG oral Tablet 07-10 00:00: 00 10-23 00:00 :00 No [id number] TAKE 1 TABLET BY MOUTH DAILY TAKE IN ADDITION TO 100 MG TABLET FOR A TOTAL DOSE OF 150 MG DAILY. [facility] Sertraline HCl 100 MG oral Tablet 07-10 00:00: 00 10-23 00:00 :00 No [id number] TAKE 1 TABLET BY MOUTH EVERY MORNING TAKE IN ADDITION TO 50 MG TABLET FOR A TOTAL DOSE OF 150 MG DAILY. [facility] iopamidol (ISOVUE 370-500 mL) injection 100 mL 2023-07 06:45: 00 07-04 06:45 :00 No [id number] 100mL 100 mL, Intravenou s, ONCE, 1 dose, On 07/04/24 at 0045, Routine [facility] morpHINE (4 mg/mL) injection 4 mg 2023-07 06:30: 00 07-04 06:29 :00 No 4mg 4 mg, Slow IV Push, ONCE, 1 dose, On Sat07/04/24 at 0030, [facility] proMETHazin e (PHENERGAN) 12.5 mg in NS 50 mL IV piggyback (CNR) 2023-07 05:15: 00 07-04 05:30 :00 No 12.5mg 12.5 mg, IV Piggyback, at 200 mL/hr Administer over 15 Minutes, ONCE, 1 dose, On Sat07/03/24 at 2315, [facility] morpHINE (4 mg/mL) injection 4 mg 2023-07 03:30: 00 07-04 03:49 :00 No 4mg 4 mg, Slow IV Push, ONCE, 1 dose, On Sat07/03/24 at 2130, STAT [facility] ondansetron (ZOFRAN (PF)) injection 4 mg 2023-07 03:30: 00 07-04 03:50 :00 No 4mg 4 mg, Slow IV Push, ONCE, 1 dose, On Sat07/03/24 at 2130, Administer over 2-5 Minutes, 2 mL [facility] NaCl 0.9% (NS) IV infusion 1,000 mL 2023-07 03:18: 00 07-04 04:56 :00 No 1000mL at 999 mL/hr, Intravenou s, ONCE, 1 dose, On Sat07/03/24 at 2130[facility] 5 mL 2023-07 02:16: 03 Yes 5mL 5 mL, Intravenou s, PRN, Starting on Sat07/03/24 at 2016, Until Discontinu ed, Routine, IV line flushing [facility] benzonatate 100 mg capsule 2023-07 00:00: 00 Yes [id number] 100mg Take 1 capsule by mouth 3 (three) times daily as needed for Cough. [facility] proMETHazin e 25 mg tablet 2023-07 00:00: 00 11-01 00:00 :00 No [id number] 25mg Take 1 tablet by mouth every 6 (six) hours as needed for Nausea and Vomiting (N/V). [facility] dicyclomine 10 mg capsule 2023-07 00:00: 00 11-01 00:00 :00 No [id number] 10mg Take 1 capsule by mouth 3 (three) times daily as needed for Abdominal pain. [facility] Gabapentin 300 MG oral Capsule 2023-07 00:00: 00 Yes 1 cap po 30-60 min prior to MRI. [facility] cephALEXin (KEFLEX) capsule 500 mg 2023-07 08:45: 00 06-21 08:53 :00 No 500mg 500 mg, Oral, ONCE, 1 dose, On 06/21/24 at 0245, ROSELYN, Reason for Anti-Infec tive: Documented Infection, Documented Infection Site: Skin / Soft Tissue, Duration of Therapy: Once (ED) [facility] doxycycline hyclate (Vibramycin ) capsule 100 mg 2023-07 08:45: 00 06-21 08:53 :00 No 100mg 100 mg, Oral, ONCE, 1 dose, On 06/21/24 at 0245, ROSE[place]N, Reason for Anti-Infec tive: Documented Infection, Documented Infection Site: Skin / Soft Tissue, Duration of Therapy: Once (ED) [facility] doxycycline hyclate 100 mg capsule 2023-07 00:00: 00 06-29 05:59 :00 No [id number] 100mg Take 1 capsule by mouth in the morning and 1 capsule in the evening. Do all this for 7 days. [facility] cephALEXin 500 mg capsule 2023-07 00:00: 00 06-29 05:59 :00 No [id number] 500mg Take 1 capsule by mouth 4 (four) times daily for 7 days. [facility] iopamidol (ISOVUE 370-500 mL) injection 100 mL 2023-07 06:30: 00 06-15 06:30 :00 No [id number] 100mL 100 mL, Intravenou s, ONCE, 1 dose, On Sat06/15/24 at 0030, Routine [facility] morpHINE (4 mg/mL) injection 4 mg 2023-07 06:00: 00 06-15 05:57 :00 No 4mg 4 mg, Slow IV Push, ONCE, 1 dose, On Sat06/15/24 at 0000, STAT [facility] proMETHazin e (PHENERGAN) 12.5 mg in NS 50 mL IV piggyback (CNR) 2023-07 05:15: 00 06-15 05:56 :00 No 12.5mg 12.5 mg, IV Piggyback, at 200 mL/hr Administer over 15 Minutes, ONCE, 1 dose, On Sat06/14/24 at 2315, [facility] NaCl 0.9% (NS) IV infusion 1,000 mL 2023-07 04:30: 00 06-15 05:28 :00 No 1000mL at 999 mL/hr, Intravenou s, ONCE, 1 dose, On Sat06/14/24 at 2230, Routine [facility] fentanyl PF (SUBLIMAZE (PF)) injection 50 mcg 2023-07 04:00: 00 06-15 04:23 :00 No 50ug 50 mcg, Slow IV Push, ONCE, 1 dose, On Sat06/14/24 at 2200, Routine [facility] famotidine (PEPCID (PF)) injection 20 mg 2023-07 03:30: 00 06-15 04:18 :00 No 20mg 20 mg, Slow IV Push, ONCE, 1 dose, On Sat06/14/24 at 2130, [facility] ondansetron (ZOFRAN (PF)) injection 4 mg 2023-07 03:30: 00 06-15 04:20 :00 No 4mg 4 mg, Slow IV Push, ONCE, 1 dose, On Sat06/14/24 at 2130, Administer over 2-5 Minutes, 2 mL [facility] proMETHazin e 25 mg tablet 2023-07 00:00: 00 11-01 00:00 :00 No [id number] 25mg Take 1 tablet by mouth every 6 (six) hours as needed for Nausea and Vomiting (N/V). [facility] morpHINE (4 mg/mL) injection 4 mg 2023-07 08:15: 00 06-07 08:11 :00 No 4mg 4 mg, Slow IV Push, ONCE, 1 dose, On 06/07/24 at 0215, STAT [facility] ondansetron (ZOFRAN (PF)) injection 4 mg 2023-07 05:15: 00 06-07 05:23 :00 No 4mg 4 mg, Slow IV Push, ONCE, 1 dose, On 06/06/24 at 2315, Administer over 2-5 Minutes, 2 mL [facility] morpHINE (4 mg/mL) injection 4 mg 2023-07 05:15: 06-07 05:21 :00 No 4mg 4 mg, Slow IV Push, ONCE, 1 dose, On 06/06/24 at 2315, STAT [facility] nitroglycer in (NITROSTAT) sublingual tablet 0.4 mg 2023-07 05:08: 35 Yes .4mg 0.4 mg, Sublingual , Q5MIN PRN, 3 doses, Starting on 06/06/24 at 2308, Until Discontinu ed, ROSELYN, Chest pain [facility] hydrOXYzine Pamoate 50 MG oral Capsule 2023-07 13:02: 35 Yes [id number] 50mg Q.5D Take 1 capsule (50 mg total) by mouth 2 times daily as needed for anxiety. [facility] Vitamin D, Ergocalcife rol, 1.25 MG (69108 UT) oral Capsule 2023-07 00:00: 00 Yes [id number] 27875Y Q1W Take 1 capsule (50,000 units total) by mouth once a week. [facility] ondansetron (ZOFRAN-ODT ) disintegrat ing tablet 4 mg 2023-07 20:15: 00 05-19 19:27 :00 No 4mg 4 mg, Oral, ONCE, 1 dose, On Sat05/19/24 at 1415, Routine [facility] HYDROcodone -acetaminop hen (NORCO 5) tablet 1 tablet 2023-07 18:00: 00 05-19 19:27 :00 No 1{tbl} 1 tablet, Oral, ONCE, 1 dose, On Sat05/19/24 at 1200, [facility] ondansetron 4 mg disintegrat ing tablet 2023-07 00:00: 00 11-01 00:00 :00 No [id number] 4mg Take 1 tablet by mouth every 8 (eight) hours as needed for Nausea and Vomiting (N/V). [facility] hydrOXYzine Pamoate 50 MG oral Capsule 2023-07 10:26: 29 Yes [id number] 50mg Q.5D Take 1 capsule (50 mg total) by mouth 2 times daily as needed for anxiety. [facility] ondansetron (ZOFRAN (PF)) injection 4 mg 2023-07 03:45: 00 05-18 03:42 :00 No 4mg 4 mg, Slow IV Push, ONCE, 1 dose, On Sat05/17/24 at 2145, [facility] morpHINE (4 mg/mL) injection 4 mg 2023-07 03:45: 00 05-18 03:42 :00 No 4mg 4 mg, Slow IV Push, ONCE, 1 dose, On Sat05/17/24 at 2145, STAT [facility] ondansetron (ZOFRAN (PF)) injection 4 mg 2023-07 01:00: 00 05-18 01:21 :00 No 4mg 4 mg, Slow IV Push, ONCE, 1 dose, On Sat05/17/24 at 1900, [facility] fentanyl PF (SUBLIMAZE (PF)) injection 50 mcg 2023-07 01:00: 00 05-18 01:21 :00 No 50ug 50 mcg, Slow IV Push, ONCE, 1 dose, On 05/17/24 at 1900, STAT [facility] Suvorexant (Belsomra) 20 MG oral Tablet 2023-07 00:00: 00 Yes [id number] 1{tbl} QD Take 1 tablet by mouth nightly. [facility] Methocarbam ol 750 MG oral Tablet 2023-07 00:00: 00 Yes [id number] 750mg Q.25D Take 1 tablet (750 mg total) by mouth 4 times daily. [facility] Acetaminoph en-Codeine 300-30 MG oral Tablet 2023-07 00:00: 00 Yes [id number] [facility] Lorazepam (ATIVAN) 0.5 MG oral Tablet tablet 2023-07 00:00: 00 Yes [id number] .5mg Q.5D Take 1 tablet (0.5 mg total) by mouth 2 times daily as needed for anxiety. [facility] Sertraline HCl 50 MG oral Tablet 2023-07 00:00: 00 Yes [id number] 50mg QD Take 1 tablet (50 mg total) by mouth daily Take in addition to 100 mg tablet for a total dose of 150 mg daily. [facility] Sertraline HCl 100 MG oral Tablet 2023-07 00:00: 00 Yes [id number] 100mg Take 1 tablet (100 mg total) by mouth every morning Take in addition to 50 mg tablet for a total dose of 150 mg daily. [facility] Isosorbide Mononitrate CR 30 MG oral TABLET SR 24 HR 2023-07 00:00: 00 Yes [id number] [facility] ondansetron (ZOFRAN (PF)) injection 4 mg 2023-07 01:30: 00 05-08 00:31 :00 No 4mg 4 mg, Slow IV Push, ONCE, 1 dose, On [place] 05/07/24 at 2030, ROSELYN [facility] morpHINE (4 mg/mL) injection 4 mg 2023-07 01:30: 00 05-08 01:20 :00 No 4mg 4 mg, Slow IV Push, ONCE, 1 dose, On [place] 05/07/24 at 2030, STAT [facility] ketorolac (TORADOL) injection 15 mg 2023-07 01:30: 00 05-08 00:30 :00 No 15mg 15 mg, Slow IV Push, ONCE, 1 dose, On [place] 05/07/24 at 2030, RO[facility]N [facility] phenazopyri dine 200 mg tablet 2023-07 00:00: 00 11-01 00:00 :00 No [id number] 200mg Take 1 tablet by mouth in the morning and 1 tablet at noon and 1 tablet in the evening. [facility] Rosuvastati n Calcium 20 MG oral Tablet 2023-07 00:00: 00 Yes 20mg QD Take 1 tablet (20 mg total) by mouth daily. [facility] Metoprolol Succinate 25 MG oral TABLET SR 24 HR 2023-07 00:00: 00 Yes [id number] 25mg QD Take 1 tablet (25 mg total) by mouth daily. [facility] Dicyclomine HCl 20 MG oral Tablet 2023-07 00:00: 00 Yes [facility] Ondansetron (ZOFRAN) 4 MG oral TABLET DISPERSIBLE 2023-07 00:00: 00 Yes 4mg Q.[id number] 3D Take 1 tablet (4 mg total) by mouth 3 times daily. [facility] pined[facility] Belsomra 20 MG oral Tablet 2023-07 00:00: 00 05-18 00:00 :00 No [id number] 1{tbl} QD take 1 tablet by mouth every day at night [facility] Nitrofurant oin (Macrobid *) 100 Mg CAP Nitrofurant oin (Macrobid *) 100 Mg CAP 2023-07 18:32: 00 Yes 100 [facility] Ondansetron Hcl (Zofran *) 4 Mg Tablet Disint Ondansetron Hcl (Zofran *) 4 Mg Tablet Disint 2023-07 18:32: 00 Yes 1 [facility] cefTRIAXone (ROCEPHIN) 1,000 mg in NaCl 0.9% (NS) 100 mL MINI-BAG 2023-07 01:15: 00 04-09 01:24 :00 No 1000mg 1,000 mg, IV Piggyback, ONCE, 1 dose, On Sat04/08/24 at 2015, Administer over 30 Minutes, 100 mL, Reason for Anti-Infec tive: Documented Infection, Documented Infection Site: Urine, Duration of Therapy: Once (ED) [facility] fentanyl PF (SUBLIMAZE (PF)) injection 25 mcg 2023-07 00:15: 00 04-09 00:18 :00 No 25ug 25 mcg, Slow IV Push, ONCE, 1 dose, On Sat04/08/24 at 1915, STAT [facility] NaCl 0.9% (NS) bolus infusion 1,000 mL 2023-07 23:45: 00 04-09 01:24 :00 No 1000mL at 999 mL/hr, 1,000 mL, IV Infusion, ONCE, 1 dose, On Sat04/08/24 at 1845, [facility] ondansetron (ZOFRAN (PF)) injection 4 mg 2023-07 23:00: 00 04-08 22:57 :00 No 4mg 4 mg, Slow IV Push, ONCE, 1 dose, On Sat04/08/24 at 1800, [facility] ketorolac (TORADOL) injection 30 mg 2023-07 23:00: 00 04-08 22:57 :00 No 30mg 30 mg, Slow IV Push, ONCE, 1 dose, On Sat04/08/24 at 1800, [facility] sodium chloride (NS) injection 5 mL 2023-07 22:33: 00 Yes 5mL 5 mL, Intravenou s, PRN, Starting on Sat04/08/24 at 1733, Until Discontinu ed, Routine, IV line flushing [facility] ciprofloxac in HCl 500 mg tablet 2023-07 00:00: 00 11-01 00:00 :00 No [id number] 500mg Take 1 tablet by mouth in the morning and 1 tablet in the evening. [facility] Promethazin e HCl (PHENERGAN) 25 MG oral Tablet 03-14 00:00: 00 Yes 25mg Q.[id number] 3D Take 1 tablet (25 mg total) by mouth every 8 hours as needed for nausea. [facility] Clopidogrel Bisulfate (PLAVIX) 75 MG oral Tablet 02-09 00:00: 00 Yes [id number] 75mg QD take 1 tablet by mouth every day [facility] Aspirin Low Dose 81 MG oral Tablet Delayed Response 02-09 00:00: 00 Yes [id number] 81mg QD take 1 tablet by mouth every day [facility] Methylpredn isolone Acetate (Depo-Medro l) 40 mg/ml - Physician Administere d ([id number]) 02-05 13:21: 25 No [id number] 9104 40mg 40 mg, Physician Administer ed, ONCE, 1 dose, On [place] 02/06/24 at 1145 [facility] hydrOXYzine Pamoate 50 MG oral Capsule 02-05 11:06: 49 Yes [id number] 50mg Q.5D Take 1 capsule (50 mg total) by mouth 2 times daily as needed for anxiety. [facility] Isosorbide Mononitrate CR 60 MG oral TABLET SR 24 HR 02-04 00:00: 00 Yes [facility] Lorazepam (ATIVAN) 0.5 MG oral Tablet tablet 01-09 00:00: 00 Yes [id number] .5mg Q.5D take 1 tablet by mouth 2 times daily as needed for anxiety [facility] Aspirin (Aspirin Low Dose) 81 MG oral Tablet Delayed Response 01-05 00:00: 00 Yes [id number] 81mg QD Take 1 tablet (81 mg total) by mouth daily. [facility] Atorvastati n Calcium 40 MG oral Tablet 01-05 00:00: 00 Yes [id number] 40mg QD Take 1 tablet (40 mg total) by mouth daily. [facility] Suvorexant (Belsomra) 20 MG oral Tablet 01-05 00:00: 00 Yes [id number] 1{tbl} QD Take 1 tablet by mouth nightly. [facility] Clopidogrel Bisulfate (PLAVIX) 75 MG oral Tablet 01-05 00:00: 00 Yes [id number] 75mg QD Take 1 tablet (75 mg [...] MG oral Capsule 12-12 09:19: 23 Yes [id number] 50mg Q.5D Take 1 capsule (50 mg total) by mouth 2 times daily as needed for anxiety. [facility] Lorazepam (ATIVAN) 0.5 MG oral Tablet tablet 12-12 00:00: 00 Yes [id number] .5mg Q.5D Take 1 tablet (0.5 mg total) by mouth 2 times daily as needed for anxiety. [facility] Aspirin Low Dose 81 MG oral Tablet Delayed Response 12-05 00:00: 00 Yes [id number] 81mg Take 1 tablet (81 mg total) by mouth daily. [facility] Atorvastati n Calcium 40 MG oral Tablet 12-05 00:00: 00 Yes [id number] 40mg Take 1 tablet (40 mg total) by mouth daily. [facility] Clopidogrel Bisulfate (PLAVIX) 75 MG oral Tablet 12-05 00:00: 00 Yes [id number] 75mg Take 1 tablet (75 mg total) by mouth daily. [facility] Mometasone Furo-Formot camelia Fum (Dulera) 200-5 MCG/ACT inhalation Aerosol 12-05 00:00: 00 05-18 00:00 :00 No TWICE DAILY [facility] Vitamin D, Ergocalcife rol, 1.25 MG (95659 UT) oral Capsule 12-04 00:00: 00 Yes [id number] 10295L Q1W Take 1 capsule (50,000 units total) by mouth once a week. [facility] Ferrous Sulfate 325 (65 Fe) MG oral Tablet 12-04 00:00: 00 Yes [id number] 325mg QD Take 1 tablet (325 mg total) by mouth daily (with breakfast) . Kellee pinedo Clopidogrel Bisulfate (PLAVIX) 75 MG oral Tablet 12-04 00:00: 00 Yes [id number] 75mg QD Take 1 tablet (75 mg total) by mouth. Kellee pinedo Mirtazapine 45 MG oral Tablet 12-02 10:49: 07 12-02 00:00 :00 No [id number] 45mg Take 1 tablet (45 mg total) by mouth nightly. Kellee pinedo hydrOXYzine Pamoate 50 MG oral Capsule 12-02 10:49: 04 Yes [id number] 50mg Q.5D Take 1 capsule (50 mg total) by mouth 2 times daily as needed for anxiety. Kellee pinedo Ascorbic Acid 500 MG oral Tablet 12-02 10:48: 55 12-02 00:00 :00 No 50mg Take 50 mg by mouth. Kellee pinedo Suvorexant (Belsomra) 20 MG oral Tablet 12-02 00:00: 00 Yes [id number] 1{tbl} Take 1 tablet by mouth nightly. Kellee pinedo Lorazepam 1 MG oral Tablet 12-02 00:00: 00 12-12 00:00 :00 No [id number] 1mg Q.5D Take 1 tablet (1 mg total) by mouth 2 times daily as needed for anxiety. Kellee pinedo Doxepin HCl 3 MG oral Tablet 11-27 00:00: 00 05-18 00:00 :00 No [id number] 1{tbl} QD TAKE 1 TABLET BY MOUTH EVERY DAY AT NIGHT Kellee pinedo Aripiprazol e 5 MG oral Tablet 11-27 00:00: 00 05-18 00:00 :00 No [id number] 5mg QD TAKE 1 TABLET (5 MG TOTAL) BY MOUTH DAILY. Kellee pinedo Mirtazapine 45 MG oral Tablet 10-28 13:20: 59 Yes [id number] 45mg Take 1 tablet (45 mg total) by mouth nightly. Kellee pinedo Ascorbic Acid 500 MG oral Tablet 10-28 13:20: 47 Yes 50mg Take 50 mg by mouth. Kellee pinedo hydrOXYzine Pamoate 50 MG oral Capsule 10-28 13:20: 47 10-28 00:00 :00 No [id number] 50mg Q.5D Take 1 capsule (50 mg total) by mouth every 4 to 6 hours as needed. Kellee pinedo Sertraline HCl 150 MG oral Capsule 10-28 13:20: 03 10-28 00:00 :00 No 150mg Take 150 mg by mouth daily. Kellee pinedo Doxepin HCl 3 MG oral Tablet 10-28 00:00: 00 Yes [id number] 1{tbl} Take 1 tablet by mouth nightly. Kellee pinedo Aripiprazol e 5 MG oral Tablet 10-28 00:00: 00 Yes [id number] 5mg Take 1 tablet (5 mg total) by mouth daily. Kellee pinedo Suvorexant 10 MG oral Tablet 10-28 00:00: 00 12-02 00:00 :00 No [id number] 1{tbl} Take 1 tablet by mouth nightly. Kellee Marcio pinedo Sertraline HCl 50 MG oral Tablet 10-26 00:00: 00 Yes [id number] Kellee Ariasazra Yeager khris HYDROcodone -acetaminop hen (NORCO) 10-325 mg tablet 1 tablet 10-10 06:15: 00 10-10 05:25 :00 No 1{tbl} 1 tablet, Oral, ONCE NOW, 1 dose, On Sat10/11/23 at 0115, [facility] iopamidol (ISOVUE 370-500 mL) injection 100 mL 10-10 05:00: 00 10-10 05:00 :00 No [id number] 100mL 100 mL, Intravenou s, ONCE, 1 dose, On Sat10/11/23 at 0000, Routine [facility] ketorolac (TORADOL) injection 30 mg 10-10 04:30: 00 10-10 03:29 :00 No 30mg 30 mg, Slow IV Push, ONCE, 1 dose, On Sat10/10/23 at 2330, Routine [facility] NaCl 0.9% (NS) IV infusion 1,000 mL 10-10 04:15: 00 10-10 05:18 :00 No 1000mL at 999 mL/hr, Intravenou s, ONCE, 1 dose, On Sat10/10/23 at 2315, Routine [facility] ondansetron (ZOFRAN (PF)) injection 4 mg 10-10 04:00: 00 10-10 03:54 :00 No 4mg 4 mg, Slow IV Push, ONCE, 1 dose, On Sat10/10/23 at 2300, [facility] morpHINE (4 mg/mL) injection 4 mg 10-10 04:00: 00 10-10 03:54 :00 No 4mg 4 mg, Slow IV Push, ONCE, 1 dose, On 10/10/23 at 2300, STAT [facility] traMADoL (ULTRAM) 50 mg tablet 10-10 00:00: 00 11-01 00:00 :00 No [id number] 50mg Take 1 tablet by mouth every 6 (six) hours as needed for Pain (scale 7-10). Indication s: acute pain [facility] phenazopyri dine 200 mg tablet 10-10 00:00: 11-01 00:00 :00 No [id number] 200mg Take 1 tablet by mouth in the morning and 1 tablet at noon and 1 tablet in the evening. [facility] ondansetron (ZOFRAN) 4 mg tablet 10-10 00:00: 00 11-01 00:00 :00 No [id number] 4mg Take 1 tablet by mouth every 8 (eight) hours as needed for Nausea and Vomiting (N/V). [facility] ketorolac 10 mg tablet 10-10 00:00: 11-01 00:00 :00 No [id number] 10mg Take 1 tablet by mouth every 6 (six) hours as needed for Pain (scale 7-10). [facility] Sertraline HCl 100 MG oral Tablet 10-09 00:00: 00 Yes [id number] 100mg Take 1 tablet (100 mg total) by mouth every morning. Kellee pinedo acetaminoph en (TYLENOL) tablet 975 mg 2022-07 04:15: 00 07-02 03:11 :00 No 975mg 975 mg, Oral, ONCE, 1 dose, On Sat07/01/23 at 2215, [facility] dicyclomine (BENTYL) tablet 20 mg 2022-07 03:15: 00 07-02 03:11 :00 No 20mg 20 mg, Oral, ONCE, 1 dose, On Sat07/01/23 at 2115, [facility] ketorolac (TORADOL) injection 30 mg 2022-07 03:15: 00 07-02 02:32 :00 No 30mg 30 mg, Slow IV Push, ONCE, 1 dose, On Sat07/01/23 at 2115, Routine [facility] ondansetron (ZOFRAN (PF)) injection 4 mg 2022-07 03:00: 00 07-02 02:03 :00 No 4mg 4 mg, Slow IV Push, ONCE, 1 dose, On Sat07/01/23 at 2100, [facility] NaCl 0.9% (NS) bolus infusion 1,000 mL 2022-07 03:00: 00 07-02 04:10 :00 No 1000mL at 999 mL/hr, 1,000 mL, IV Infusion, ONCE, 1 dose, On Sat07/01/23 at 2100, STAT [facility] dicyclomine 20 mg tablet 2022-07 00:00: 00 11-01 00:00 :00 No [id number] 20mg Take 1 tablet by mouth 4 (four) times daily. [facility] ondansetron 4 mg disintegrat ing tablet 2022-07 00:00: 00 11-01 00:00 :00 No [id number] 4mg Take 1 tablet by mouth every 4 (four) hours as needed for Nausea and Vomiting (N/V). [facility] Alprazolam (Alprazolam *) 1 Mg TAB Alprazolam (Alprazolam *) 1 Mg TAB 2022-07 12:08: 00 06-14 00:00 :00 No 1 [facility] Trazodone Hcl (Desyrel 100 Mg*) 100 Mg TAB Trazodone Hcl (Desyrel 100 Mg*) 100 Mg TAB 2022-07 12:07: 00 06-06 12:08 :00 No 1 [facility] Aspirin (Aspirin Ec) 81 Mg Tablet Aspirin (Aspirin Ec) [address] 2022-07 11:55: 00 07-07 00:00 :00 No 81 [facility] Alprazolam (Xanax 2 Mg*) 2 Mg TAB Alprazolam (Xanax 2 Mg*) 2 Mg TAB 2022-07 11:09: 40 06-06 12:08 :00 No 2 [facility] Trazodone Hcl (Desyrel 300 Mg*) 300 Mg TAB Trazodone Hcl (Desyrel 300 Mg*) 300 Mg TAB 2022-07 11:09: 39 05-13 15:45 :00 No 300 [facility] Alprazolam 1 MG oral Tablet 2022-07 00:00: 00 12-12 00:00 :00 No [id number] 2mg Take 2 tablets (2 mg total) by mouth 2 times daily. Kellee pinedo Pantoprazol e * (Protonix Ec *) 20 Mg Tablet Pantoprazol e * (Protonix Ec *) [address] 2022-07 15:44: 00 06-05 00:28 :00 No 20 [facility] Sucralfate (Carafate *) 1 Gm TAB Sucralfate (Carafate *) 1 Gm TAB 2022-07 15:44: 00 06-05 00:28 :00 No 1 [facility] Ciprofloxac in Hcl (Cipro *) 500 Mg TAB Ciprofloxac in Hcl (Cipro *) 500 Mg TAB 2022-07 15:44: 00 05-16 00:00 :00 No 500 [facility] Pantoprazol e Sodium 20 MG oral Tablet Delayed Response 2022-07 00:00: 00 12-02 00:00 :00 No Take by mouth. Kellee pinedo ketorolac (TORADOL) injection 15 mg 2022-07 01:00: 00 05-10 00:09 :00 No 15mg 15 mg, Slow IV Push, ONCE, 1 dose, On Sat05/09/23 at 2000, [facility] proCHLORper azine (COMPAZINE) injection 5 mg 2022-07 23:30: 00 05-09 22:48 :00 No 5mg 5 mg, Slow IV Push, ONCE, 1 dose, On Sat05/09/23 at 1830, [facility] diphenhydrA MINE (BENADRYL) injection 25 mg 2022-07 22:45: 00 05-09 22:48 :00 No 25mg 25 mg, Slow IV Push, ONCE, 1 dose, On Sat05/09/23 at 1745, STAT [facility] HYDROcodone -acetaminop hen (NORCO) 10-325 mg tablet 1 tablet 2022-07 02:00: 00 05-01 01:04 :00 No 1{tbl} 1 tablet, Oral, ONCE, 1 dose, On Sat04/30/23 at 2100, Routine [facility] iopamidol (ISOVUE 370-500 mL) injection 100 mL 2022-07 00:45: 00 05-01 00:45 :00 No [id number] 100mL 100 mL, Intravenou s, ONCE, 1 dose, On Sat04/30/23 at 1945, Routine [facility] NaCl 0.9% (NS) bolus infusion 1,000 mL 2022-07 00:00: 00 05-01 00:45 :00 No 1000mL at 999 mL/hr, 1,000 mL, IV Piggyback, ONCE, 1 dose, On Sat04/30/23 at 1900, STAT [facility] proCHLORper azine (COMPAZINE) injection 5 mg 2022-07 23:45: 00 04-30 23:09 :00 No 5mg 5 mg, Slow IV Push, ONCE, 1 dose, On Sat04/30/23 at 1845[facility] (BENADRYL) injection 25 mg 2022-07 0 23:00: 00 04-30 23:09 :00 No 25mg 25 mg, Slow IV Push, ONCE, 1 dose, On Sat04/30/23 at 1800, STAT [facility] dicyclomine 20 mg tablet 2022-07 00:00: 00 07-01 00:00 :00 No [id number] 20mg Take 1 tablet by mouth 4 (four) times daily. [facility] acetaminoph en (TYLENOL) tablet 1,000 mg 2022-07 02:45: 00 04-17 02:43 :00 No 1000mg 1,000 mg, Oral, ONCE, 1 dose, On Sat04/16/23 at 2145, [facility] (ZOFRAN (PF)) injection 4 mg 2022-07 03:15: 00 04-09 02:13 :00 No 4mg 4 mg, Slow IV Push, ONCE, 1 dose, On Sat04/08/23 at 2215, [facility]cl[facility] (BENTYL) tablet 20 mg 2022-07 03:15: 00 04-09 02:16 :00 No 20mg 20 mg, Oral, ONCE, 1 dose, On Sat04/08/23 at 2215, Routine [facility] ondansetron (ZOFRAN (PF)) injection 4 mg 2022-07 23:45: 00 04-08 23:16 :00 No 4mg 4 mg, Slow IV Push, ONCE, 1 dose, On Sat04/08/23 at 1845, [facility] morpHINE (2 mg/mL) injection 4 mg 2022-07 23:45: 00 04-08 23:45 :00 No 4mg 4 mg, Slow IV Push, ONCE, 1 dose, On Sat04/08/23 at 1845, STAT [facility] ondansetron 4 mg disintegrat ing tablet 2022-07 00:00: 00 07-01 00:00 :00 No [id number] 4mg Take 1 tablet by mouth every 8 (eight) hours as needed for Nausea and Vomiting (N/V). [facility] dicyclomine 20 mg tablet 2022-07 0 00:00: 00 04-30 00:00 :00 No [id number] 20mg Take 1 tablet by mouth 4 (four) times daily. [facility] acetaminoph en (TYLENOL) tablet 1,000 mg 03-10 04:30: 00 03-10 04:29 :00 No 1000mg 1,000 mg, Oral, ONCE, 1 dose, On 03/09/23 at 2330, [facility] iopamidol (ISOVUE 370-500 mL) injection 85 mL 03-10 04:30: 00 03-10 04:30 :00 No [id number] 85mL 85 mL, Intravenou s, ONCE, 1 dose, On 03/09/23 at 2330, Routine [facility] FENTanyl PF (SUBLIMAZE (PF)) injection 75 mcg 03-10 04:00: 00 03-10 02:58 :00 No 75ug 75 mcg, Slow IV Push, ONCE, 1 dose, On 03/09/23 at 2300, STAT [facility] NaCl 0.9% (NS) IV infusion 1,000 mL 03-10 03:00: 00 Yes 1000mL at 20 mL/hr, IV Infusion, CONTINUOUS , Starting on 03/09/23 at 2200, Until Discontinu ed, Routine [facility] ondansetron (ZOFRAN (PF)) injection 4 mg 03-10 02:00: 00 03-10 02:01 :00 No 4mg 4 mg, Slow IV Push, ONCE, 1 dose, On 03/09/23 at 2100, [facility] morpHINE (4 mg/mL) injection 4 mg 03-10 02:00: 00 03-10 02:01 :00 No 4mg 4 mg, Slow IV Push, ONCE, 1 dose, On 03/09/23 at 2100, STAT [facility] polyethylen e glycol 3350 (MIRALAX) 17 gram powder 03-09 00:00: 00 11-01 00:00 :00 No [id number] 1{packe t} Take 1 Packet by mouth once daily as needed for Constipati on. [facility] Simethicone 125 mg 9-02 00:00: 00 11-01 00:00 :00 No [id number] 125mg Take 1 capsule by mouth after meals and at bedtime as needed for Gas. [facility] iopamidol (ISOVUE 370-500 mL) injection 100 mL 03-02 06:15: 00 03-02 06:15 :00 No [id number] 100mL 100 mL, Intravenou s, ONCE, 1 dose, On 03/02/23 at 0115, Routine [facility] NaCl 0.9% (NS) IV infusion 1,000 mL 03-02 05:15: 00 Yes 1000mL at 999 mL/hr, Intravenou s, CONTINUOUS , Starting on 03/02/23 at 0015, Until Discontinu ed, Routine [facility] ketorolac (TORADOL) injection 30 mg 03-02 05:15: 00 03-02 04:20 :00 No 30mg 30 mg, Slow IV Push, ONCE, 1 dose, On 03/02/23 at 0015, Routine [facility] ondansetron (ZOFRAN (PF)) injection 4 mg 03-02 05:00: 00 03-02 05:24 :00 No 4mg 4 mg, Slow IV Push, ONCE, 1 dose, On 03/02/23 at 0000, [facility] morpHINE (4 mg/mL) injection 4 mg 03-02 05:00: 00 03-02 05:24 :00 No 4mg 4 mg, Slow IV Push, ONCE, 1 dose, On 03/02/23 at 0000, STAT [facility] ondansetron (ZOFRAN (PF)) injection 4 mg 03-02 04:15: 00 03-02 04:21 :00 No 4mg 4 mg, Slow IV Push, ONCE, 1 dose, On Sat03/01/23 at 2315, [facility] ondansetron (ZOFRAN) 4 mg tablet 03-02 00:00: 00 11-01 00:00 :00 No [id number] 4mg Take 1 tablet by mouth every 8 (eight) hours as needed for Nausea and Vomiting (N/V). [facility] dicyclomine 20 mg tablet 03-02 00:00: 00 04-30 00:00 :00 No [id number] 20mg Take 1 tablet by mouth every 6 (six) hours as needed for Abdominal pain. [facility] metoclopram tracy HCl (REGLAN) injection 10 mg 02-18 06:45: 00 02-18 06:43 :00 No 10mg 10 mg, Slow IV Push, ONCE, 1 dose, On Sat02/18/23 at 0145, [facility] morpHINE (4 mg/mL) injection 4 mg 02-18 05:30: 00 02-18 05:28 :00 No 4mg 4 mg, Slow IV Push, ONCE, 1 dose, On Sat02/18/23 at 0030, STAT [facility] ondansetron (ZOFRAN (PF)) injection 4 mg 02-18 05:30: 00 02-18 05:28 :00 No 4mg 4 mg, Slow IV Push, ONCE, 1 dose, On Sat02/18/23 at 0030, [facility] NaCl 0.9% (NS) bolus infusion 1,000 mL 02-18 05:30: 00 02-18 05:15 :00 No 1000mL at 999 mL/hr, 1,000 mL, IV Infusion, ONCE, 1 dose, On Sat02/18/23 at 0030, STAT [facility] proMETHazin e (PHENERGAN) 25 mg in NaCl 0.9% (NS) 50 mL IV piggyback 02-18 04:30: 00 02-18 04:28 :00 No 25mg 25 mg, IV Piggyback, ONCE, 1 dose, On 02/17/23 at 2330, [facility] proMETHazin e 25 mg tablet 02-18 00:00: 00 11-01 00:00 :00 No [id number] 25mg Take 1 tablet by mouth every 6 (six) hours as needed for Nausea and Vomiting (N/V). [facility] bupropion HCl (WELLBUTRIN ORAL) 02-17 16:23: 24 Yes 150mg Take 150 mg by mouth every morning. [facility] melatonin 10 mg Tab 02-17 16:23: 24 Yes 1{tbl} Take 1 tablet by mouth at bedtime. [facility] trazodone HCl (TRAZODONE ORAL) 02-17 16:23: 24 Yes 400mg Take 400 mg by mouth at bedtime. [facility] ALPRAZOLAM ORAL 02-17 16:: 11-04 00:00 :00 No 2mg Take 2 mg by mouth in the morning and 2 mg in the evening. [facility] escitalopra m oxalate (LEXAPRO) 5 mg tablet 02-17 16:: 11-01 00:00 :00 No 10mg Take 2 tablets by mouth at bedtime. [facility] topiramate (TOPAMAX) 200 mg tablet 02-17 16:: 11-01 00:00 :00 No 200mg Take 1 tablet by mouth every evening. [facility] OLANZapine (ZYPREXA) 15 mg tablet 02-17 16:23: 11-01 00:00 :00 No 15mg Take 1 tablet by mouth every evening. [facility] melatonin 10 mg Tab 02-17:23: 11-01 00:00 :00 No 10mg Take 1 tablet by mouth at bedtime. [facility] lactated ringers IV infusion 1,000 mL 02-17 02:15: 00 02-17 22:14 :00 No 1000mL at 100 mL/hr, 1,000 mL, IV Infusion, CONTINUOUS , Starting on 02/16/23 at 2115, Until 02/17/23 at 1714, Routine [facility] traZODone (DESYREL) tablet 400 mg 02-17 02:00: 00 Yes 400mg 400 mg, Oral, QHS, First dose on 02/16/23 at 2100, Until Discontinu ed [facility] melatonin (MELATIN) tablet 9 mg 02-17 02:00: 00 Yes 9mg 9 mg, Oral, QHS, First dose on 02/16/23 at 2100, Until Discontinu ed [facility] morpHINE (2 mg/mL) injection 2 mg 02-17 01:07: 50 03-01 01:06 :50 No 2mg 2 mg, Slow IV Push, Q4HPRN, Starting on 02/16/23 at 2006, Until [place] 02/28/23 at 2005, Routine, Pain (scale 7-10) [facility] OLANZapine (ZyPREXA) tablet 15 mg 02-16 22:00: 00 Yes 15mg 15 mg, Oral, QPM, First dose on [facility] 02/16/23 at 1700, Until Discontinu ed, Routine [facility] buPROPion XL (WELLBUTRIN XL) tablet 150 mg 02-16 14:00: 00 Yes 150mg 150 mg, Oral, DAILY, First dose on [facility] 02/16/23 at 0900, Until Discontinu ed [facility] enoxaparin (LOVENOX) injection 40 mg 02-16 14:00: 00 Yes 40mg 40 mg, Subcutaneo us, DAILY, First dose on 02/16/23 at 0900, Until Discontinu ed, Routine [facility] methocarbam oL (ROBAXIN) tablet 500 mg 02-16 06:04: 59 Yes 500mg 500 mg, Oral, Q6HPRN, Starting on 02/16/23 at 0104, Until Discontinu ed, Routine, Muscle Spasms [facility] ALPRAZolam (XANAX) tablet 2 mg 02-16 06:03: 54 Yes 2mg 2 mg, Oral, TIDPRN, Starting on 02/16/23 at 0103, Until Discontinu ed, Anxiety [facility] lactated ringers IV infusion 1,000 mL 02-16 03:15: 00 02-16 23:14 :00 No 1000mL at 100 mL/hr, 1,000 mL, IV Infusion, CONTINUOUS , Starting on Sat02/15/23 at 2215, Until 02/16/23 at 1814, Routine [facility] morpHINE (2 mg/mL) injection 2 mg 02-16 03:07: 02 02-17 01:08 :14 No 2mg 2 mg, Slow IV Push, Q4HPRN, Starting on Sat02/15/23 at 2207, Until 02/16/23 at 2008, Routine, Pain (scale 7-10) [facility] traMADoL (ULTRAM) tablet 50 mg 02-16 03:06: 59 02-18 03:05 :59 No 50mg 50 mg, Oral, Q8HPRN, Starting on Sat02/15/23 at 2206, Until 02/17/23 at 2205, Routine, Pain (scale 4-6) [facility] acetaminoph en (TYLENOL) tablet 1,000 mg 02-16 03:06: 50 Yes 1000mg 1,000 mg, Oral, Q6HPRN, Starting on Sat02/15/23 at 2206, Until Discontinu ed, Routine, Pain (scale 1-3), Temp > 38 C [facility] ALPRAZolam (XANAX) 1 mg tablet 02-16 01:09: 19 02-15 00:00 :00 No 1mg Take 1 tablet by mouth in the morning and 1 tablet in the evening. [facility] iopamidol (ISOVUE 370-500 mL) injection 80 mL 02-16 00:30: 00 02-16 00:30 :00 No [id number] 80mL 80 mL, Intravenou s, ONCE, 1 dose, On Sat02/15/23 at 1930, Routine [facility] lactated ringers IV infusion 1,000 mL 02-16 00:00: 00 02-16 03:07 :30 No [id number] 1000mL at 500 mL/hr, 1,000 mL, IV Infusion, CONTINUOUS , Starting on Sat02/15/23 at 1900, Until Sat02/15/23 at 2207, [facility] FENTanyl PF (SUBLIMAZE (PF)) injection 75 mcg 02-15 23:45: 00 02-15 23:13 :00 No [id number] 75ug 75 mcg, Slow IV Push, ONCE, 1 dose, On Sat02/15/23 at 1845, Routine [facility] dicyclomine (BENTYL) injection 20 mg 02-15 22:15: 00 02-15 21:46 :00 No [id number] 20mg 20 mg, Intramuscu lar, ONCE NOW, 1 dose, On Sat02/15/23 at 1715, Routine [facility] LORazepam (ATIVAN) injection 1 mg 02-15 21:45: 00 02-15 21:46 :00 No [id number] 1mg 1 mg, Slow IV Push, ONCE, 1 dose, On Sat02/15/23 at 1645, STAT [facility] ondansetron (ZOFRAN (PF)) injection 4 mg 02-15 21:45: 00 02-15 21:46 :00 No [id number] 4mg 4 mg, Slow IV Push, ONCE, 1 dose, On Sat02/15/23 at 1645, [facility] HYDROcodone -acetaminop hen (NORCO) 10-325 mg tablet 1 tablet 02-15 20:15: 00 02-15 19:52 :00 No [id number] 1{tbl} 1 tablet, Oral, ONCE, 1 dose, On Sat02/15/23 at 1515, Routine [facility] Melatonin 1 mg tablet 02-15 20:08: 23 02-15 00:00 :00 No 10mg Take 10 tablets by mouth every evening. [facility] trazodone HCl (DESYREL ORAL) 02-15 20:06: 33 02-15 00:00 :00 No 200mg Take 200 mg by mouth every evening. [facility] OLANZapine (ZYPREXA) 2.5 mg tablet 02-15 20:05: 48 02-15 00:00 :00 No 2.5mg Take 1 tablet by mouth in the morning and 1 tablet in the evening. [facility] hydrOXYzine (VISTARIL) 50 mg capsule 02-15 20:03: 04 02-15 00:00 :00 No 50mg Take 1 capsule by mouth every 4 (four) hours as needed for Itching. q 4-6 hours as needed [facility] dicyclomine (BENTYL) tablet 20 mg 02-15 19:30: 00 02-15 19:52 :00 No [id number] 20mg 20 mg, Oral, ONCE, 1 dose, On Sat02/15/23 at 1430, [facility] ibuprofen (IBU) tablet 800 mg 02-15 19:30: 00 02-15 19:52 :00 No [id number] 800mg 800 mg, Oral, ONCE, 1 dose, On Sat02/15/23 at 1430, [facility] losartan 50 mg tablet 02-15 13:44: 36 02-15 00:00 :00 No 50mg Take 1 tablet by mouth in the morning. [facility] Charlotte-3-DHA -EPA-Fish Oil (FISH OIL) 1,000 mg (120 mg-180 mg) Cap 02-15 13:44: 15 02-15 00:00 :00 No 1000mg Take 1,000 mg by mouth daily. [facility] methocarbam oL 750 mg tablet 02-15 13:43: 47 02-15 00:00 :00 No 750mg Take 750 mg by mouth 3 (three) times daily. [facility] FENTanyl PF (SUBLIMAZE (PF)) injection 50 mcg 01-10 00:45: 00 01-09 23:46 :00 No 50ug 50 mcg, Slow IV Push, ONCE, 1 dose, On Sat01/09/22 at 1945, Routine [facility] ketorolac (TORADOL) injection 30 mg 01-09 23:45: 00 01-09 22:48 :00 No 30mg 30 mg, Slow IV Push, ONCE, 1 dose, On Sat01/09/22 at 1845, Routine [facility] aspirin chewable tablet 243 mg 12-14 14:00: 00 Yes 243mg 243 mg, Oral, DAILY, First dose on [place] 12/14/21 at 0900, Until Discontinu ed, Routine [facility] ketorolac (TORADOL) injection 15 mg 12-14 08:15: 00 12-14 07:11 :00 No 15mg 15 mg, Slow IV Push, ONCE, 1 dose, On [place] 12/14/21 at 0315, [facility] morpHINE (4 mg/mL) injection 4 mg 12-14 05:45: 00 12-14 04:52 :00 No 4mg 4 mg, Slow IV Push, ONCE, 1 dose, On [place] 12/14/21 at 0045, STAT [facility] cefTRIAXone (ROCEPHIN) 1,000 mg in NaCl 0.9% (NS) 50 mL MINI-BAG 12-14 05:45: 00 12-14 05:30 :00 No 1000mg 1,000 mg, IV Piggyback, ONCE, 1 dose, On [place] 12/14/21 at 0045, Administer over 30 Minutes, 50 mL
Reas on for Anti-Infec tive: Documented Infection< br>Documen kaushik Infection Site: Urine
D uration of Therapy: Other (see Comments) [facility] NaCl 0.9% (NS) bolus infusion 1,000 mL 12-14 05:45: 00 12-14 07:20 :00 No 1000mL at 999 mL/hr, 1,000 mL, IV Infusion, ONCE, 1 dose, On [place] 12/14/21 at 0045, [facility] ondansetron (ZOFRAN (PF)) injection 4 mg 12-14 04:45: 00 12-14 03:50 :00 No 4mg 4 mg, Slow IV Push, ONCE, 1 dose, On Sat12/13/21 at 2345, [facility] FENTanyl PF (SUBLIMAZE (PF)) injection 50 mcg 12-14 04:45: 00 12-14 03:50 :00 No 50ug 50 mcg, Slow IV Push, ONCE, 1 dose, On Sat12/13/21 at 2345, Routine [facility] ALPRAZolam (XANAX) 1 mg tablet 12-14 02:22: 13 Yes 1mg Take 1 mg by mouth 2 (two) times daily. [facility] naproxen 500 mg tablet 12-14 00:00: 00 02-15 00:00 :00 No [id number] 500mg Take 1 tablet by mouth 2 (two) times daily with meals. [facility] cefpodoxime 200 mg tablet 12-14 00:00: 00 12-22 04:59 :00 No [id number] 200mg Take 1 tablet by mouth 2 (two) times daily for 7 days. [facility] LORazepam (ATIVAN) injection 1 mg 11-12 05:00: 00 11-12 04:01 :00 No 1mg 1 mg, Slow IV Push, ONCE, 1 dose, On 11/12/21 at 0000, STAT [facility] ketorolac (TORADOL) injection 30 mg 11-12 03:30: 00 11-12 02:26 :00 No 30mg 30 mg, Slow IV Push, ONCE, 1 dose, On 11/11/21 at 2230, Routine
human resources team member approving Restricted medication : DEE WANG [facility] nitroglycer in (NITROSTAT) sublingual tablet 0.4 mg 11-12 03:30: 00 11-12 02:26 :00 No .4mg 0.4 mg, Sublingual , ONCE, 1 dose, On 11/11/21 at 2230, [facility] aspirin E.C. (ECOTRIN) tablet 325 mg 11-12 03:30: 00 11-12 02:25 :00 No 325mg 325 mg, Oral, ONCE, 1 dose, On 11/11/21 at 2230, [facility] morpHINE (4 mg/mL) injection 4 mg 11-12 02:30: 00 11-12 01:40 :00 No 4mg 4 mg, Slow IV Push, ONCE, 1 dose, On 11/11/21 at 2130, [facility] ondansetron (ZOFRAN (PF)) injection 4 mg 11-12 02:30: 00 11-12 01:40 :00 No 4mg 4 mg, Slow IV Push, ONCE, 1 dose, On 11/11/21 at 2130, [facility] NaCl 0.9% (NS) bolus infusion 1,000 mL 11-12 02:30: 00 11-12 02:30 :00 No 1000mL at 999 mL/hr, 1,000 mL, IV Infusion, ONCE, 1 dose, On 11/11/21 at 2130, [facility] hydrOXYzine 50 mg tablet 11-11 00:00: 00 04-08 00:00 :00 No [id number] 50mg Take 1 tablet by mouth every 8 (eight) hours as needed for Anxiety. [facility] ketorolac (TORADOL) injection 30 mg 09-12 05:45: 00 09-12 04:54 :00 No 30mg 30 mg, Slow IV Push, ONCE, 1 dose, On 09/11/21 at 2345, Routine
human resources team member approving Restricted medication : DEE WANG [facility] cefTRIAXone (ROCEPHIN) 1,000 mg in NaCl 0.9% (NS) 50 mL MINI-BAG 09-12 03:45: 00 09-12 03:41 :00 No 1000mg 1,000 mg, IV Piggyback, ONCE, 1 dose, On Sat09/11/21 at 2145, Administer over 30 Minutes, 50 mL
Reas on for Anti-Infec tive: Documented Infection< br>Documen kaushik Infection Site: Urine
D uration of Therapy: 7 days [facility] ondansetron (ZOFRAN (PF)) injection 4 mg 09-12 03:15: 00 09-12 02:39 :00 No 4mg 4 mg, Slow IV Push, ONCE, 1 dose, On Sat09/11/21 at 2115, ROSELYN [facility] morpHINE injection 4 mg 09-12 03:15: 00 09-12 02:39 :00 No 4mg 4 mg, Slow IV Push, ONCE, 1 dose, On Sat09/11/21 at 2115, STAT [facility] iopamidol (ISOVUE 370-500 mL) injection 120 mL 09-12 02:45: 00 09-12 03:00 :00 No [id number] 120mL 120 mL, Intravenou s, ONCE, 1 dose, On Sat09/11/21 at 2100, Routine [facility] sodium chloride (NS) injection 5 mL 09-12 01:33: 26 Yes 5mL 5 mL, Intravenou s, PRN, Starting on Sat09/11/21 at 1933, Until Discontinu ed, Routine, IV line flushing [facility] ibuprofen 600 mg tablet 09-11 00:00: 00 02-15 00:00 :00 No [id number] 600mg Take 1 tablet by mouth every 6 (six) hours as needed for Pain (scale 4-6). [facility] [facility] 300 [facility] capsule 2022-0 3-07 00:00: 00 09-19 04:59 :00 No [id number] 300mg Take 1 capsule by mouth 2 (two) times daily for 7 days. [facility] HYDROcodone -acetaminop hen (NORCO) 10-325 mg tablet 1 tablet 08-15 09:00: 00 08-15 07:59 :00 No 1{tbl} 1 tablet, Oral, ONCE, 1 dose, On Sat08/15/21 at 0300, Routine [facility] FENTanyl PF (SUBLIMAZE (PF)) injection 75 mcg 08-15 07:30: 00 08-15 06:42 :00 No 75ug 75 mcg, Intramuscu lar, ONCE, 1 dose, On Sat08/15/21 at 0130, Routine [facility] methocarbam oL (ROBAXIN) 500 mg tablet 08-15 00:00: 00 Yes [id number] 500mg Take 1 tablet by mouth every 6 (six) hours as needed for Pain (scale 7-10) (MUSCLE SPASM). [facility] traMADoL (ULTRAM) 50 mg tablet 08-15 00:00: 00 11-01 00:00 :00 No [id number] 50mg Take 1 tablet by mouth every 6 (six) hours as needed for Pain (scale 7-10). Indication s: acute pain [facility] Nitrofurant oin&Nit. Macrocryst (MACROBID) 100 mg capsule 08-15 00:00: 00 02-15 00:00 :00 No [id number] 100mg Take 1 capsule by mouth 2 (two) times daily. [facility] morpHINE injection 4 mg 2020-07 08:30: 00 05-28 07:50 :00 No 4mg 4 mg, Slow IV Push, ONCE, 1 dose, On Sat05/28/21 at 0230, ROSELYN [facility] maalox:diph enhydrAMINE :lidocaine 2 % viscous 1:1:1 (FIRST-MOUT HWASH [facility]) oral suspension 15 mL 2020-07 08:00: 00 05-28 07:04 :00 No 15mL 15 mL, Oral, ONCE, 1 dose, On 05/28/21 at 0200, Routine [facility] FENTanyl PF (SUBLIMAZE (PF)) injection 50 mcg 2020-07 07:00: 00 05-28 06:02 :00 No 50ug 50 mcg, Slow IV Push, ONCE, 1 dose, On 05/28/21 at 0100, STAT [facility] famotidine (PEPCID (PF)) injection 20 mg 2020-07 07:00: 00 05-28 06:01 :00 No 20mg 20 mg, Slow IV Push, ONCE, 1 dose, On 05/28/21 at 0100, ROSELYN [facility] famotidine 20 mg tablet 2020-07 00:00: 00 06-13 05:59 :00 No [id number] 20mg Take 1 tablet by mouth 2 (two) times daily for 15 days. [facility] escitalopra m oxalate (LEXAPRO) tablet 10 mg 2020-07 02:00: 00 Yes 10mg 10 mg, Oral, QHS, First dose on 04/08/21 at 2100, Until Discontinu ed, Routine [facility] aspirin 81 mg chewable tablet 2020-07 00:00: 00 05-10 04:59 :00 No [id number] 81mg Take 1 tablet by mouth daily for 30 days. [facility] traZODone (DESYREL) tablet 200 mg 2020-07 22:00: 00 Yes 200mg 200 mg, Oral, QPM, First dose on 04/08/21 at 1700, Until Discontinu ed [facility] topiramate (TOPAMAX) tablet 200 mg 2020-07 22:00: 00 Yes 200mg 200 mg, Oral, QPM, First dose on 04/08/21 at 1700, Until Discontinu ed, Routine
human resources team member approving Restricted medication : ALEXEY ALEGRE [facility] OLANZapine (ZyPREXA) tablet 15 mg 2020-07 22:00: 00 Yes 15mg 15 mg, Oral, QPM, First dose on 04/08/21 at 1700, Until Discontinu ed, Routine [facility] melatonin (MELATIN) tablet 9 mg 2020-07 22:00: 00 Yes 9mg 9 mg, Oral, QPM, First dose on 04/08/21 at 1700, Until Discontinu ed [facility] methocarbam oL 750 mg tablet 2020-07 17:45: 33 Yes 750mg Take 750 mg by mouth 3 (three) times daily. [facility] Charlotte-3-DHA -EPA-Fish Oil (FISH OIL) 1,000 mg (120 mg-180 mg) Cap 2020-07 17:45: 33 Yes 1000mg Take 1,000 mg by mouth daily. [facility] hydrOXYzine (VISTARIL) 50 mg capsule 2020-07 17:45: 33 Yes 50mg Take 50 mg by mouth every 4 (four) hours as needed for Itching. q 4-6 hours as needed [facility] losartan 50 mg tablet 2020-07 17:45: 33 Yes 50mg Take 50 mg by mouth daily. [facility] trazodone HCl (DESYREL ORAL) 2020-07 17:45: 33 Yes 200mg Take 200 mg by mouth every evening. [facility] escitalopra m oxalate (LEXAPRO) 5 mg tablet 2020-07 17:45: 33 Yes 10mg Take 10 mg by mouth at bedtime. [facility] Melatonin 1 mg tablet 2020-07 17:45: 33 Yes 10mg Take 10 mg by mouth every evening. [facility] topiramate (TOPAMAX) 200 mg tablet 2020-07 17:45: 33 Yes 200mg Take 200 mg by mouth every evening. [facility] bupropion HCl (WELLBUTRIN ORAL) 2020-07 17:45: 33 Yes 150mg Take 150 mg by mouth every morning. [facility] OLANZapine (ZYPREXA) 15 mg tablet 2020-07 17:45: 33 Yes 15mg Take 15 mg by mouth every evening. [facility] OLANZapine (ZYPREXA) 2.5 mg tablet 2020-07 17:45: 33 Yes 2.5mg Take 2.5 mg by mouth 2 (two) times daily. [facility] furosemide (LASIX) injection 20 mg 2020-07 14:30: 00 Yes 20mg 20 mg, Slow IV Push, Q12H, First dose on 04/08/21 at 0930, Until Discontinu ed, Routine [facility] losartan (COZAAR) tablet 50 mg 2020-07 14:00: 00 Yes 50mg 50 mg, Oral, DAILY, First dose on 04/08/21 at 0900, Until Discontinu ed, Routine [facility] buPROPion XL (WELLBUTRIN XL) tablet 150 mg 2020-07 14:00: 00 Yes 150mg 150 mg, Oral, DAILY, First dose on 04/08/21 at 0900, Until Discontinu ed [facility] aspirin chewable tablet 81 mg 2020-07 14:00: 00 Yes 81mg 81 mg, Oral, DAILY, First dose on 04/08/21 at 0900, Until Discontinu ed, Routine [facility] enoxaparin (LOVENOX) injection 40 mg 2020-07 14:00: 00 Yes 40mg 40 mg, Subcutaneo us, DAILY, First dose on 04/08/21 at 0900, Until Discontinu ed, Routine [facility] OLANZapine (ZyPREXA) tablet 2.5 mg 2020-07 13:00: 00 Yes 2.5mg 2.5 mg, Oral, BID, First dose on 04/08/21 at 0800, Until Discontinu ed, Routine [facility] methocarbam oL (ROBAXIN) tablet 750 mg 2020-07 13:00: 00 Yes 750mg 750 mg, Oral, TID, First dose on 04/08/21 at 0800, Until Discontinu ed, Routine [facility] LORazepam (ATIVAN) injection 0.5 mg 2020-07 0 04:07: 43 Yes .5mg 0.5 mg, Slow IV Push, PRN, 2 doses, Starting on Sat04/07/21 at 2307, Until Discontinu ed, Routine, Anxiety [facility] hydrOXYzine (ATARAX) tablet 50 mg 2020-07 0 02:51: 23 Yes 50mg 50 mg, Oral, Q4HPRN, Starting on Sat04/07/21 at 2151, Until Discontinu ed, Itching [facility] LORazepam (ATIVAN) tablet 0.5 mg 2020-07 0 02:05: 29 Yes .5mg 0.5 mg, Oral, PRN, 2 doses, Starting on Sat04/07/21 at 2105, Until Discontinu ed, Routine, Anxiety [facility] morpHINE injection 4 mg 2020-07 0 00:00: 00 04-07 22:58 :00 No 4mg 4 mg, Slow IV Push, ONCE, 1 dose, On Sat04/07/21 at 1900, STAT [facility] ondansetron (ZOFRAN (PF)) injection 4 mg 2020-07 0 00:00: 00 04-07 22:56 :00 No 4mg 4 mg, Slow IV Push, ONCE, 1 dose, On Sat04/07/21 at 1900, ROSELYN [facility] morpHINE injection 4 mg 2020-07 23:58: 03 04-08 23:57 :03 No 4mg 4 mg, Slow IV Push, Q4HPRN, Starting on Sat04/07/21 at 1858, Until 04/08/21 at 1857, Routine, Pain (scale 7-10) [facility] HYDROcodone -acetaminop hen (NORCO 5) 5-325 mg tablet 1 tablet 2020-07 0 23:58: 00 04-09 23:57 :00 No 1{tbl} 1 tablet, Oral, Q6HPRN, Starting on Sat04/07/21 at 1858, Until Sat04/09/21 at 1857, Routine, Pain (scale 4-6) [facility] acetaminoph en (TYLENOL) tablet 650 mg 2020-07 23:57: 57 Yes 650mg 650 mg, Oral, Q6HPRN, Starting on Sat04/07/21 at 1857, Until Discontinu ed, Routine, Pain (scale 1-3) [facility] aspirin tablet 325 mg 2020-07 23:00: 00 04-07 21:56 :00 No 325mg 325 mg, Oral, ONCE, 1 dose, On Sat04/07/21 at 1800, STAT [facility] nitroglycer in (NITROSTAT) sublingual tablet 0.4 mg 2020-07 21:51: 01 04-07 22:46 :00 No .4mg 0.4 mg, Sublingual , Q5MIN PRN, 3 doses, Starting on Sat04/07/21 at 1651, Until Discontinu ed, ROSELYN, Chest pain [facility] fluconazole (DIFLUCAN) tablet 150 mg 01-12 14:00: 00 Yes 150mg 150 mg, Oral, DAILY, First dose on [place] 01/12/21 at 0900, Until Discontinu ed, ROSELYN
Re ason for Anti-Infec tive: Empiric Therapy for Suspected Infection< br>Empiric Therapy Site: HEENT
D uration of therapy: 72 hours [facility] cefTRIAXone (ROCEPHIN) 1,000 mg in NaCl 0.9% (NS) 50 mL MINI-BAG 01-12 10:15: 00 01-12 09:49 :00 No 1000mg 1,000 mg, IV Piggyback, ONCE, 1 dose, [place] 01/12/21 at 0515, 50 mL
Reas on for Anti-Infec tive: Empiric Therapy for Suspected Infection< br>Empiric Therapy Site: Urine
D uration of therapy: 72 hours [facility] hydrOXYzine (ATARAX) tablet 25 mg 01-12 10:15: 00 01-12 09:18 :00 No 25mg 25 mg, Oral, ONCE, 1 dose, [place] 01/12/21 at 0515, ROSELYN [facility] HYDROcodone -acetaminop hen (NORCO) 10-325 mg tablet 1 tablet 01-12 10:15: 00 01-12 09:18 :00 No 1{tbl} 1 tablet, Oral, ONCE, 1 dose, [place] 01/12/21 at 0515, Routine [facility] maalox:diph enhydrAMINE :lidocaine2 %viscous 1:1:1: suspension (COMPOUNDED ) 01-12 09:30: 00 01-12 08:25 :00 No 15mL 15 mL, Oral, ONCE, 1 dose, [place] 01/12/21 at 0430, Routine [facility] cephALEXin (KEFLEX) 500 mg capsule 01-12 00:00: 00 04-07 00:00 :00 No [id number] 500mg Take 1 capsule by mouth 3 (three) times daily. [facility] HYDROcodone -acetaminop hen (NORCO 5) 5-325 mg tablet 1 tablet 12-11 02:00: 00 12-11 01:29 :00 No 1{tbl} 1 tablet, Oral, ONCE, 1 dose, 12/10/20 at 2100, ROSELYN [facility] LORazepam (ATIVAN) injection 1 mg 12-11 00:30: 00 12-10 23:36 :00 No 1mg 1 mg, Slow IV Push, ONCE, 1 dose, 12/10/20 at 1930, STAT [facility] ketorolac (TORADOL) injection 30 mg 12-11 00:30: 00 12-10 23:36 :00 No 30mg 30 mg, Slow IV Push, ONCE, 1 dose, 12/10/20 at 1930, ROSELYN
Fa culty member approving Restricted medication : EMERGENCY ROOM, [facility] ondansetron (ZOFRAN (PF)) injection 4 mg 12-10 23:45: 00 12-10 22:46 :00 No 4mg 4 mg, Slow IV Push, ONCE, 1 dose, 12/10/20 at 1845, [facility] NaCl 0.9% (NS) bolus infusion 2,000 mL 12-10 22:45: 00 12-11 01:29 :00 No 2000mL at 999 mL/hr, 2,000 mL, IV Infusion, ONCE, 1 dose, 12/10/20 at 1745, [facility] proMETHazin e 25 mg tablet 12-10 00:00: 00 04-07 00:00 :00 No [id number] 12.5mg Take 0.5 tablets by mouth every 6 (six) hours as needed for N/V unresponsi ve to Ondansetro n. [facility] morpHINE injection 4 mg 12-04 22:30: 00 12-04 21:37 :00 No 4mg 4 mg, Slow IV Push, ONCE, 1 dose, 12/04/20 at 1730, STAT [facility] losartan 50 mg tablet 12-04 22:03: 53 Yes 50mg Take 50 mg by mouth daily. [facility] LORazepam (ATIVAN) tablet 1 mg 12-04 21:45: 00 12-04 20:44 :00 No 1mg 1 mg, Oral, ONCE, 1 dose, 12/04/20 at 1645, [facility] ondansetron (ZOFRAN (PF)) injection 4 mg 12-04 21:15: 00 12-04 20:22 :00 No 4mg 4 mg, Slow IV Push, ONCE, 1 dose, 12/04/20 at 1615, [facility] morpHINE injection 4 mg 12-04 21:15: 00 12-04 20:21 :00 No 4mg 4 mg, Slow IV Push, ONCE, 1 dose, 12/04/20 at 1615, STAT [facility] ALPRAZolam (XANAX) 2 mg tablet 11-04 04:24: 19 11-03 00:00 :00 No 2mg Take 2 mg by mouth at bedtime. [facility] LORazepam (ATIVAN) injection 1 mg 11-04 04:00: 00 11-04 02:57 :00 No 1mg 1 mg, Slow IV Push, ONCE, 1 dose, [place] 11/03/20 at 2300, STAT [facility] LORazepam (ATIVAN) tablet 1 mg 11-04 04:00: 00 11-04 02:57 :00 No 1mg 1 mg, Oral, ONCE, 1 dose, [place] 11/03/20 at 2300, ROSELYN [facility] clonazePAM 0.5 mg tablet 11-01 00:00: 00 04-07 00:00 :00 No .5mg Take 0.5 mg by mouth. [facility] SERTraline 100 mg tablet 11-01 00:00: 00 04-07 00:00 :00 No 100mg Take 100 mg by mouth. [facility] busPIRone 10 mg tablet 10-18 00:00: 00 04-07 00:00 :00 No 10mg Take 10 mg by mouth. [facility] Ciprofloxac in/Dexameth asone (Ciprodex 0.3%-0.1% Otic*) 1 Ea SUSP Ciprofloxac in/Dexameth asone (Ciprodex 0.3%-0.1% Otic*) 1 Ea SUSP 09-19 13:53: 00 09-30 00:00 :[address] [facility]up[facility] (IBU) tablet 800 mg 09-17 16:55: 00 09-17 16:57 :00 No 800mg 800 mg, Oral, ONCE, 1 dose, 09/17/20 at 1100, ROSELYN [facility] benzonatate 100 mg capsule 09-17 00:00: 00 04-07 00:00 :00 No [id number] 100mg Take 1 capsule by mouth 3 (three) times daily as needed for Cough. [facility] amoxicillin 500 mg capsule 3-13 00:00: 00 09-28 04:59 :00 No [id number] 500mg Take 1 capsule by mouth 3 (three) times daily for 10 days. [facility] HYDROcodone -acetaminop hen (NORCO) 10-325 mg tablet 1 tablet 09-07 07:45: 00 09-07 07:09 :00 No 1{tbl} 1 tablet, Oral, ONCE, 1 dose, Sat09/07/20 at 0145, Routine [facility] ondansetron (ZOFRAN-ODT ) disintegrat ing tablet 4 mg 09-07 07:15: 00 09-07 07:15 :00 No 4mg 4 mg, Oral, ONCE, 1 dose, Sat09/07/20 at 0130, Routine [facility] ibuprofen 800 mg tablet 09-07 00:00: 00 Yes [id number] 800mg Take 1 tablet by mouth every 8 (eight) hours as needed for Pain (scale 4-6). [facility] ketorolac (TORADOL) injection 30 mg 08-28 10:45: 00 08-28 09:48 :00 No 30mg 30 mg, Slow IV Push, ONCE, 1 dose, 08/28/20 at 0445, Routine
human resources team member approving Restricted medication : OLIVIA GARCIA [facility] ondansetron (ZOFRAN (PF)) injection 4 mg 08-28 10:00: 00 08-28 09:06 :00 No 4mg 4 mg, Slow IV Push, ONCE, 1 dose, 08/28/20 at 0400, ROSELYN [facility] FENTanyl PF (SUBLIMAZE (PF)) injection 50 mcg 08-28 10:00: 00 08-28 09:07 :00 No 50ug 50 mcg, Slow IV Push, ONCE, 1 dose, 08/28/20 at 0400, Routine [facility] maalox:diph enhydrAMINE :lidocaine 2 % viscous 1:1:1 (FIRST-MOUT HWASH BLM) oral suspension 15 mL 08-28 10:00: 00 08-28 09:07 :00 No 15mL 15 mL, Oral, ONCE, 1 dose, 08/28/20 at 0400, Routine [facility] iohexol (OMNIPAQUE 350 BULK-100 mL) injection 120 mL 08-28 09:30: 00 08-28 09:11 :00 No 120mL 120 mL, Intravenou s, ONCE, 1 dose, 08/28/20 at 0330, Routine [facility] dicyclomine 20 mg tablet 08-28 00:00: 00 04-07 00:00 :00 No [id number] 20mg Take 1 tablet by mouth every 6 (six) hours as needed for Abdominal pain. [facility] ondansetron (ZOFRAN) 4 mg tablet 08-28 00:00: 00 09-17 00:00 :00 No [id number] 4mg Take 1 tablet by mouth every 8 (eight) hours as needed for Nausea and Vomiting (N/V). [facility] FENTanyl PF (SUBLIMAZE (PF)) injection 25 mcg 08-14 19:00: 00 08-14 18:09 :00 No 25ug 25 mcg, Slow IV Push, ONCE, 1 dose, 08/14/20 at 1300, STAT [facility] ondansetron (ZOFRAN (PF)) injection 4 mg 08-14 19:00: 08-14 18:10 :00 No 4mg 4 mg, Slow IV Push, ONCE, 1 dose, 08/14/20 at 1300, ROSELYN [facility] ketorolac (TORADOL) injection 15 mg 08-14 19:00: 00 08-14 18:09 :00 No 15mg 15 mg, Slow IV Push, ONCE, 1 dose, 08/14/20 at 1300, ROSELYN
Fa culty member approving Restricted medication : BEST TAYLOR [facility] piperacilli n-tazobacta m (ZOSYN) 3.375 g in NaCl 0.9% (NS) 100 mL MINI-BAG 08-14 19:00: 08-14 18:38 :00 No 3.375g 3.375 g, IV Piggyback, ONCE, 1 dose, 08/14/20 at 1300, 100 mL
Reas on for Anti-Infec tive: Documented Infection< br>Documen kaushik Infection Site: Urine
D uration of Therapy: Other (see Comments) [facility] NaCl 0.9% (NS) bolus infusion 1,000 mL 08-14 19:00: 08-14 19:00 :00 No 1000mL at 999 mL/hr, 1,000 mL, IV Infusion, ONCE, 1 dose, 08/14/20 at 1300, STAT [facility] guaiFENesin 100 mg/5 mL solution 08-14 00:00: 00 04-07 00:00 :00 No [id number] 100mg Take 5 mL by mouth every 4 (four) hours. [facility] ondansetron 4 mg disintegrat ing tablet 08-14 00:00: 00 09-17 00:00 :00 No [id number] 4mg Take 1 tablet by mouth every 8 (eight) hours as needed for Nausea and Vomiting (N/V). [facility] ibuprofen 600 mg tablet 08-14 00:00: 00 09-17 00:00 :00 No [id number] 600mg Take 1 tablet by mouth every 6 (six) hours as needed for Pain (scale 4-6). [facility] amoxicillin -clavulanat e 875-125 mg per tablet 08-14 00:00: 00 08-25 05:59 :00 No [id number] 1{tbl} Take 1 tablet by mouth 2 (two) times daily for 10 days. [facility] fluconazole (DIFLUCAN) tablet 150 mg 08-11 15:00: 00 Yes 150mg 150 mg, Oral, DAILY, First dose on [place] 08/11/20 at 0900, Until Discontinu ed, ROSELYN
Re ason for Anti-Infec tive: Documented Infection< br>Documen kaushik Infection Site: Urine
D uration of Therapy: Other (see Comments) [facility] HYDROcodone -acetaminop hen (NORCO) 10-325 mg tablet 1 tablet 08-11 05:30: 00 08-11 05:08 :00 No 1{tbl} 1 tablet, Oral, ONCE NOW, 1 dose, 08/10/20 at 2330, Routine [facility] FENTanyl PF (SUBLIMAZE (PF)) injection 25 mcg 08-11 04:30: 00 08-11 03:19 :00 No 25ug 25 mcg, Slow IV Push, ONCE, 1 dose, 08/10/20 at 2230, STAT [facility] ondansetron (ZOFRAN (PF)) injection 4 mg 08-11 04:15: 00 08-11 03:19 :00 No 4mg 4 mg, Slow IV Push, ONCE, 1 dose, 08/10/20 at 2215, ROSELYN [facility] NaCl 0.9% (NS) bolus infusion 1,000 mL 2- 01:45: 00 08-11 03:45 :00 No 1000mL at 999 mL/hr, 1,000 mL, IV Infusion, ONCE, 1 dose, Sat08/10/20 at 1945, STAT [facility] ketorolac (TORADOL) injection 30 mg 2-04 01:45: 00 08-11 02:31 :00 No 30mg 30 mg, Slow IV Push, ONCE, 1 dose, Sat08/10/20 at 1945, ROSELYN
Fa culty member approving Restricted medication : BEST TAYLOR [facility] traMADoL (ULTRAM) 50 mg tablet 2- 00:00: 00 09-17 00:00 :00 No [id number] 50mg Take 1 tablet by mouth every 6 (six) hours as needed for Pain (scale 7-10). Indication s: acute pain [facility] ibuprofen 800 mg tablet 08-07 00:00: 00 09-17 00:00 :00 No [id number] 800mg Take 1 tablet by mouth every 8 (eight) hours. [facility] amoxicillin 500 mg capsule 08-07 00:00: 00 09-17 00:00 :00 No [id number] 500mg Take 1 capsule by mouth 3 (three) times daily. [facility] traMADoL 50 mg tablet 08-07 00:00: 00 09-17 00:00 :00 No [id number] 50mg Take 1 tablet by mouth every 6 (six) hours as needed for Pain (scale 4-6). Indication s: acute pain [facility] LORazepam (ATIVAN) tablet 1 mg 2019-07 03:15: 00 07-01 02:21 :00 No 1mg 1 mg, Oral, ONCE, 1 dose, [place] 06/30/20 at 2115, ROSELYN [facility] FENTanyl PF (SUBLIMAZE (PF)) injection 50 mcg 2019-07 02:30: 00 07-01 01:39 :00 No 50ug 50 mcg, Slow IV Push, ONCE, 1 dose, [place] 06/30/20 at 2030, Routine [facility] ondansetron (ZOFRAN-ODT ) disintegrat ing tablet 4 mg 2019-07 01:15: 00 07-01 00:52 :00 No 4mg 4 mg, Oral, ONCE, 1 dose, [place] 06/30/20 at 1915, Routine [facility] ketorolac (TORADOL) injection 30 mg 2019-07 01:15: 00 07-01 00:52 :00 No 30mg 30 mg, Slow IV Push, ONCE, 1 dose, [place] 06/30/20 at 1915, ROSELYN
Fa culty member approving Restricted medication : ABDIAS ROBERTSON [facility] albuterol 90 mcg/actuati on inhaler 2019-07 00:00: 04-07 00:00 :00 No [id number] 2{puff} Inhale 2 Puffs every 4 (four) hours as needed for Wheezing or Shortness of Breath. [facility] hydrOXYzine 25 mg tablet 2019-07 00:00: 00 09-17 00:00 :00 No [id number] 25mg Take 1 tablet by mouth every 6 (six) hours as needed for Anxiety. [facility] naproxen sodium (ANAPROX DS) 550 mg tablet 2019-07 00:00: 00 04-07 00:00 :00 No [id number] 550mg Take 1 tablet by mouth 2 (two) times daily with meals. [facility] methylPREDN ISolone (MEDROL, BEBETO,) 4 mg tablets 2019-07 00:00: 00 09-17 00:00 :00 No [id number] Take by mouth SEE-INSTRU CTIONS. follow package directions [facility] methocarbam oL 500 mg tablet 2019-07 00:00: 00 07-04 05:59 :00 No [id number] 500mg Take 1 tablet by mouth 3 (three) times daily for 5 days. [facility] proMETHazin e (PHENERGAN) tablet 25 mg 2019-07 04:45: 00 06-13 03:37 :00 No 25mg 25 mg, Oral, ONCE, 1 dose, 06/12/20 at 2245, ROSELYN [facility] ondansetron (ZOFRAN (PF)) injection 4 mg 2019-07 03:00: 00 06-13 01:59 :00 No 4mg 4 mg, Slow IV Push, ONCE, 1 dose, 06/12/20 at 2100, ROSELYN [facility] ketorolac (TORADOL) injection 15 mg 2019-07 03:00: 00 06-13 01:58 :00 No 15mg 15 mg, Intramuscu lar, ONCE, 1 dose, 06/12/20 at 2100, ROSELYN
Fa culty member approving Restricted medication : LEEANNE WISE [facility] morpHINE injection 4 mg 2019-07 01:30: 00 06-13 00:41 :00 No 4mg 4 mg, Slow IV Push, ONCE, 1 dose, 06/12/20 at 1930, STAT [facility] ondansetron (ZOFRAN (PF)) injection 4 mg 2019-07 00:45: 00 06-13 00:41 :00 No 4mg 4 mg, Slow IV Push, ONCE, 1 dose, 06/12/20 at 1845, ROSELYN [facility] NaCl 0.9% (NS) bolus infusion 1,000 mL 2019-07 23:45: 00 06-13 03:54 :00 No 1000mL at 999 mL/hr, 1,000 mL, IV Infusion, ONCE, 1 dose, 06/12/20 at 1745, [facility] dicyclomine 20 mg tablet 2019-07 00:00: 00 04-07 00:00 :00 No [id number] 20mg Take 1 tablet by mouth 4 (four) times daily as needed for Abdominal pain. [facility] proMETHazin e 25 mg tablet 2019-07 00:00: 00 09-17 00:00 :00 No [id number] 25mg Take 1 tablet by mouth every 6 (six) hours as needed for Nausea and Vomiting (N/V). [facility] famotidine 20 mg tablet 2019-07 00:00: 00 06-27 05:59 :00 No [id number] 20mg Take 1 tablet by mouth at bedtime for 14 days. [facility] haloperidol lactate (HALDOL) injection 2.5 mg 2019-07 01:00: 00 05-16 23:51 :00 No 2.5mg 2.5 mg, Intravenou s, ONCE, 1 dose, 05/16/20 at 1900, STAT [facility] NaCl 0.9% (NS) bolus infusion 1,000 mL 2019-07 23:45: 00 05-17 00:54 :00 No 1000mL at 999 mL/hr, 1,000 mL, IV Infusion, ONCE, 1 dose, [facility] 05/16/20 at 1745, ROSELYN [facility] proMETHazin e (PHENERGAN) 25 mg suppository 2019-07 00:00: 00 Yes [id number] 25mg Insert 1 Suppositor y into rectum every 4 (four) hours as needed for Nausea and Vomiting (N/V). [facility] ondansetron (ZOFRAN (PF)) injection 4 mg 2019-07 07:30: 00 05-15 06:26 :00 No 4mg 4 mg, Slow IV Push, ONCE, 1 dose, [place] 05[facility]15/20 at 0130[facility] (OMNIPAQUE 350 BULK-100 mL) injection 120 mL 2019-07 07:00: 00 05-15 06:52 :00 No 120mL 120 mL, Intravenou s, ONCE, 1 dose, [place] 05/15/20 at 0100, Routine [facility] ondansetron (ZOFRAN (PF)) injection 4 mg 2019-07 06:30: 00 05-15 05:52 :00 No 4mg 4 mg, Slow IV Push, ONCE, 1 dose, [place] 05/15/20 at 0030, [facility] ALPRAZolam (XANAX) 2 mg tablet 2019-07 05:30: 59 Yes 2mg Take 2 mg by mouth at bedtime. [facility] zolpidem 5 mg tablet 6-15 00:00: 00 04-07 00:00 :00 No 5mg Take 5 mg by mouth. [facility] Immunizations Ordered Immunization Name Filled Immunization Name Date Status Comments Source Covid-19 Vaccine Moderna (Spikevax), Mrna-lnp, Zackery Protein, Pf Unknown Completed [facility] Covid-19 Vaccine Moderna (Spikevax), Mrna-lnp, Zackery Protein, Pf Unknown Completed Kellee Davies Covid-19 Vaccine Moderna (Spikevax), Mrna-lnp, Zackery Protein, Pf Unknown Completed Kellee [facility] - External Covid-19 Vaccine Moderna (Spikevax), Mrna-lnp, Zackery Protein, Pf Unknown Completed [facility] - External Covid-19 Vaccine Moderna (Spikevax), Mrna-lnp, Zackery Protein, Pf Unknown Completed [facility] - External Covid-19 Vaccine Moderna (Spikevax), Mrna-lnp, Zackery Protein, Pf Unknown Completed [facility] - External Covid-19 Vaccine Moderna (Spikevax), Mrna-lnp, Zackery Protein, Pf Unknown Completed [facility] - External Covid-19 Vaccine Moderna (Spikevax), Mrna-lnp, Zackery Protein, Pf Unknown Completed [facility] - External Covid-19 Vaccine Moderna (Spikevax), Mrna-lnp, Zackery Protein, Pf Unknown Completed [facility] - External Covid-19 Vaccine Moderna (Spikevax), Mrna-lnp, Zackery Protein, Pf Unknown Completed [facility] - External Vital Signs Vital Name Observation Time Observation Value Comments S ource Body temperature 2024-11-11 05:30:00 37.17 Latanya [facility] Systolic blood pressure 2024-11-11 05:02:00 141 mm[Hg] [facility] Diastolic blood pressure 2024-11-11 05:02:00 100 mm[Hg] [facility] Heart rate 2024-11-11 05:02:00 76 /min [facility] Respiratory rate 2024-11-11 05:02:00 21 /min [facility] Oxygen saturation in Arterial blood by Pulse oximetry 2024-11-11 05:02:00 96 /min [facility] Body height 2024-11-11 00:53:00 157.5 cm [facility] Body weight 2024-11-11 00:53:00 108.41 kg [facility] BMI 2024-11-11 00:53:00 43.71 kg/m2 [facility] Systolic blood pressure 2024-11-04 19:00:00 134 mm[Hg] [facility] Diastolic blood pressure 2024-11-04 19:00:00 85 mm[Hg] [facility] Heart rate 2024-11-04 19:00:00 86 /min [facility] Body temperature 2024-11-04 19:00:00 36.94 Latanya [facility] Oxygen saturation in Arterial blood by Pulse oximetry 2024-11-04 19:00:00 98 /min [facility] Respiratory rate 2024-11-04 08:24:00 16 /min [facility] Body height 2024-11-03 17:28:00 157.5 cm [facility] Body weight 2024-11-03 17:28:00 108.7 kg [facility] BMI 2024-11-03 17:28:00 43.83 kg/m2 [facility] Systolic blood pressure 2024-11-03 21:17:00 123 mm[Hg] [facility] Diastolic blood pressure 2024-11-03 21:17:00 74 mm[Hg] [facility] Heart rate 2024-11-03 21:17:00 72 /min [facility] Body temperature 2024-11-03 21:17:00 37.11 Latanya [facility] Respiratory rate 2024-11-03 21:17:00 18 /min [facility] Oxygen saturation in Arterial blood by Pulse oximetry 2024-11-03 21:17:00 98 /min [facility] Body height 2024-11-03 17:28:00 157.5 cm [facility] Body weight 2024-11-03 17:28:00 108.7 kg [facility] BMI 2024-11-03 17:28:00 43.83 kg/m2 [facility] Heart rate 2024-10-24 04:50:00 77 /min [facility] Body temperature 2024-10-24 04:50:00 36.83 Latanya [facility] Respiratory rate 2024-10-24 04:50:00 21 /min [facility] Oxygen saturation in Arterial blood by Pulse oximetry 2024-10-24 04:50:00 96 /min [facility] Systolic blood pressure 2024-10-24 04:15:00 146 mm[Hg] [facility] Diastolic blood pressure 2024-10-24 04:15:00 90 mm[Hg] [facility] Body height 2024-10-24 01:16:00 157.5 cm [facility] Body weight 2024-10-24 01:16:00 108.863 kg [facility] BMI 2024-10-24 01:16:00 43.90 kg/m2 [facility] Systolic blood pressure 2024-10-23 15:10:00 132 mm[Hg] [facility] Ariasy[facility] - [facility] Diastolic blood pressure 2024-10-23 15:10:00 82 mm[Hg] [facility] Ariasy[facility] - External Heart rate 2024-10-23 15:10:00 79 [...] Pulse oximetry 2024-10-23 15:10:00 97 /min K[facility] Buck[facility] - External Systolic blood pressure 2024-10-13 07:35:00 135 mm[Hg] [facility] Diastolic blood pressure 2024-10-13 07:35:00 87 mm[Hg] [facility] Heart rate 2024-10-13 07:35:00 86 /min [facility] Body temperature 2024-10-13 07:35:00 36.72 Latanya [facility] Respiratory rate 2024-10-13 07:35:00 19 /min [facility] Oxygen saturation in Arterial blood by Pulse oximetry 2024-10-13 07:35:00 98 /min [facility] Body height 2024-10-13 03:27:00 157.5 cm [facility] Body weight 2024-10-13 03:27:00 104.327 kg [facility] BMI 2024-10-13 03:27:00 42.07 kg/m2 [facility] Body temperature 2024-07-19 07:17:00 36.56 Latanya [facility] Heart rate 2024-07-19 07:14:00 74 /min [facility] Respiratory rate 2024-07-19 07:14:00 27 /min [facility] Oxygen saturation in Arterial blood by Pulse oximetry 2024-07-19 07:14:00 100 /min [facility] Systolic blood pressure 2024-07-19 07:00:00 123 mm[Hg] [facility] Diastolic blood pressure 2024-07-19 07:00:00 93 mm[Hg] [facility] Body height 2024-07-19 04:44:00 157.5 cm [facility] Body weight 2024-07-19 04:44:00 104.327 kg [facility] BMI 2024-07-19 04:44:00 42.07 kg/m2 [facility] Systolic blood pressure 2024-07-04 07:00:00 132 mm[Hg] [facility] Diastolic blood pressure 2024-07-04 07:00:00 98 mm[Hg] [facility] Heart rate 2024-07-04 07:00:00 85 /min [facility] Body temperature 2024-07-04 07:00:00 36.78 Latanya [facility] Respiratory rate 2024-07-04 07:00:00 18 /min [facility] Oxygen saturation in Arterial blood by Pulse oximetry 2024-07-04 07:00:00 94 /min [facility] Body height 2024-07-04 01:53:00 157.5 cm [facility] Body weight 2024-07-04 01:53:00 105.688 kg [facility] BMI 2024-07-04 01:53:00 42.62 kg/m2 [facility] Systolic blood pressure 2024-06-21 08:00:00 180 mm[Hg] [facility] Diastolic blood pressure 2024-06-21 08:00:00 107 mm[Hg] [facility] Heart rate 2024-06-21 08:00:00 89 /min [facility] Body temperature 2024-06-21 08:00:00 37.11 Latanya [facility] Respiratory rate 2024-06-21 08:00:00 22 /min [facility] Body height 2024-06-21 08:00:00 157.5 cm [facility] Body weight 2024-06-21 08:00:00 108.41 kg [facility] BMI 2024-06-21 08:00:00 43.71 kg/m2 [facility] Oxygen saturation in Arterial blood by Pulse oximetry 2024-06-21 08:00:00 100 /min [facility] Heart rate 2024-06-15 06:22:00 87 /min [facility] Body temperature 2024-06-15 06:22:00 37.11 Latanya [facility] Oxygen saturation in Arterial blood by Pulse oximetry 2024-06-15 06:22:00 96 /min [facility] Systolic blood pressure 2024-06-15 06:00:00 137 mm[Hg] [facility] Diastolic blood pressure 2024-06-15 06:00:00 85 mm[Hg] [facility] Respiratory rate 2024-06-15 06:00:00 15 /min [facility] Body height 2024-06-15 03:23:00 157.5 cm [facility] Body weight 2024-06-15 03:23:00 109.997 kg [facility] BMI 2024-06-15 03:23:00 44.35 kg/m2 [facility] Body temperature 2024-06-07 08:35:48 36.89 Latanya [facility] Systolic blood pressure 2024-06-07 08:00:00 129 mm[Hg] [facility] Diastolic blood pressure 2024-06-07 08:00:00 108 mm[Hg] [facility] Heart rate 2024-06-07 08:00:00 69 /min [facility] Respiratory rate 2024-06-07 08:00:00 24 /min [facility] Oxygen saturation in Arterial blood by Pulse oximetry 2024-06-07 08:00:00 97 /min [facility] Body height 2024-06-07 04:02:00 157.5 cm [facility] Body weight 2024-06-07 04:02:00 105.688 kg [facility] BMI 2024-06-07 04:02:00 42.62 kg/m2 [facility] Systolic blood pressure 2024-05-19 19:32:00 130 mm[Hg] [facility] Diastolic blood pressure 2024-05-19 19:32:00 74 mm[Hg] [facility] Heart rate 2024-05-19 19:32:00 84 /min [facility] Respiratory rate 2024-05-19 19:32:00 18 /min [facility] Oxygen saturation in Arterial blood by Pulse oximetry 2024-05-19 19:32:00 99 /min [facility] Body temperature 2024-05-19 17:44:00 36.83 Latanya [facility] Body height 2024-05-19 17:44:00 157.5 cm [facility] Body weight 2024-05-19 17:44:00 108.863 kg [facility] BMI 2024-05-19 17:44:00 43.90 kg/m2 [facility] Systolic blood pressure 2024-05-18 16:21:00 126 mm[Hg] [facility]ellee Sey[facility] - External Diastolic blood pressure 2024-05-18 16:21:00 78 mm[Hg] Kellee ybold - External Heart rate 2024-05-18 16:21:00 95 /min Kellee ybold - External Body temperature 2024-05-18 16:21:00 35.94 Latanya K[facility] Ariasybold - External Respiratory rate 2024-05-18 16:21:00 15 /min [facility] Seybold - External Body height 2024-05-18 16:21:00 157.5 cm [facility] Ariasy[facility] - External Body weight 2024-05-18 16:21:00 110.678 kg [facility] Seybold - External BMI 2024-05-18 16:21:00 44.63 kg/m2 [facility] Sey[facility] - External Heart rate 2024-05-18 04:14:00 111 /min [facility] Body temperature 2024-05-18 04:14:00 37 Latanya [facility] Respiratory rate 2024-05-18 04:14:00 27 /min [facility] Oxygen saturation in Arterial blood by Pulse oximetry 2024-05-18 04:14:00 94 /min [facility] Systolic blood pressure 2024-05-18 04:00:00 141 mm[Hg] [facility] Diastolic blood pressure 2024-05-18 04:00:00 122 mm[Hg] [facility] Body height 2024-05-18 00:33:00 157.5 cm [facility] Body weight 2024-05-18 00:33:00 107.502 kg [facility] BMI 2024-05-18 00:33:00 43.35 kg/m2 [facility] Heart rate 2024-05-08 02:05:00 91 /min [facility] Respiratory rate 2024-05-08 02:05:00 22 /min [facility] Oxygen saturation in Arterial blood by Pulse oximetry 2024-05-08 02:05:00 95 /min [facility] Systolic blood pressure 2024-05-08 02:00:00 140 mm[Hg] [facility] Diastolic blood pressure 2024-05-08 02:00:00 86 mm[Hg] [facility] Body temperature 2024-05-07 23:46:00 36.78 Latanya [facility] Body height 2024-05-07 23:46:00 157.5 cm [facility] Body weight 2024-05-07 23:46:00 107.729 kg [facility] BMI 2024-05-07 23:46:00 43.44 kg/m2 [facility] Height 2024-04-10 16:28:00 157.999506 cm [facility] Weight 2024-04-10 16:28:00 104.631953 kg [facility] BMI (Body Mass Index) 2024-04-10 16:28:00 42.1 kg/m2 [facility] Systolic blood pressure 2024-04-09 01:30:00 134 mm[Hg] [facility] Diastolic blood pressure 2024-04-09 01:30:00 64 mm[Hg] [facility] Heart rate 2024-04-09 01:30:00 102 /min [facility] Body temperature 2024-04-09 01:30:00 36.61 Latanya [facility] Respiratory rate 2024-04-09 01:30:00 17 /min [facility] Oxygen saturation in Arterial blood by Pulse oximetry 2024-04-09 01:30:00 96 /min [facility] Body height 2024-04-08 22:31:00 157.5 cm [facility] Body weight 2024-04-08 22:31:00 104.327 kg [facility] BMI 2024-04-08 22:31:00 42.07 kg/m2 [facility] Body temperature 2023-12-13 14:10:00 36.72 Latanya Kellee [...] Heart rate 2023-10-29 18:12:00 82 /min Kellee Floresold - External Body temperature 2023-10-29 18:12:00 36.72 Latanya Kellee Ariasybold - External Respiratory rate 2023-10-29 18:12:00 18 /min Kellee Ariasybold - External Body height 2023-10-29 18:12:00 157.5 cm Kellee Buckley - External Body weight 2023-10-29 18:12:00 106.142 kg Kellee Ariasybold - External BMI 2023-10-29 18:12:00 42.80 kg/m2 Kellee Buckley - External Oxygen saturation in Arterial blood by Pulse oximetry 2023-10-29 18:12:00 97 /min Kellee Seybold - External Systolic blood pressure 2023-10-11 05:00:00 126 mm[Hg] [facility] Diastolic blood pressure 2023-10-11 05:00:00 87 mm[Hg] [facility] Heart rate 2023-10-11 05:00:00 94 /min [facility] Respiratory rate 2023-10-11 05:00:00 22 /min [facility] Oxygen saturation in Arterial blood by Pulse oximetry 2023-10-11 05:00:00 98 /min [facility] Body temperature 2023-10-11 02:28:00 37.22 Latanya [facility] Body height 2023-10-11 02:28:00 157.5 cm [facility] Body weight 2023-10-11 02:28:00 99.791 kg [facility] BMI 2023-10-11 02:28:00 40.24 kg/m2 [facility] Systolic blood pressure 2023-07-02 04:10:00 147 mm[Hg] [facility] Diastolic blood pressure 2023-07-02 04:10:00 89 mm[Hg] [facility] Heart rate 2023-07-02 04:10:00 73 /min [facility] Respiratory rate 2023-07-02 04:10:00 19 /min [facility] Oxygen saturation in Arterial blood by Pulse oximetry 2023-07-02 04:10:00 98 /min [facility] Body temperature 2023-07-02 01:47:00 36.78 Latanya [facility] Body height 2023-07-02 01:47:00 160 cm [facility] Body weight 2023-07-02 01:47:00 97.659 kg [facility] BMI 2023-07-02 01:47:00 38.14 kg/m2 [facility] Systolic blood pressure 2023-05-10 01:00:00 133 mm[Hg] [facility] Diastolic blood pressure 2023-05-10 01:00:00 81 mm[Hg] [facility] Heart rate 2023-05-10 01:00:00 64 /min [facility] Respiratory rate 2023-05-10 01:00:00 21 /min [facility] Oxygen saturation in Arterial blood by Pulse oximetry 2023-05-10 01:00:00 96 /min [facility] Body temperature 2023-05-09 22:43:00 36.67 Latanya [facility] Body height 2023-05-09 22:43:00 157.5 cm [facility] Body weight 2023-05-09 22:43:00 99.791 kg [facility] BMI 2023-05-09 22:43:00 40.24 kg/m2 [facility] Systolic blood pressure 2023-05-01 01:00:00 107 mm[Hg] [facility] Diastolic blood pressure 2023-05-01 01:00:00 80 mm[Hg] [facility] Heart rate 2023-05-01 01:00:00 80 /min [facility] Body temperature 2023-05-01 01:00:00 37.06 Latanya [facility] Respiratory rate 2023-05-01 01:00:00 16 /min [facility] Oxygen saturation in Arterial blood by Pulse oximetry 2023-05-01 01:00:00 98 /min [facility] Body height 2023-04-30 22:16:00 157.5 cm [facility] Body weight 2023-04-30 22:16:00 95.255 kg [facility] BMI 2023-04-30 22:16:00 38.41 kg/m2 [facility] Systolic blood pressure 2023-04-17 02:00:00 147 mm[Hg] [facility] Diastolic blood pressure 2023-04-17 02:00:00 83 mm[Hg] [facility] Heart rate 2023-04-17 02:00:00 90 /min [facility] Respiratory rate 2023-04-17 02:00:00 18 /min [facility] Oxygen saturation in Arterial blood by Pulse oximetry 2023-04-17 02:00:00 96 /min [facility] Body temperature 2023-04-17 01:33:00 36.78 Latanya [facility] Body height 2023-04-17 01:33:00 157.5 cm [facility] Body weight 2023-04-17 01:33:00 99.791 kg [facility] BMI 2023-04-17 01:33:00 40.24 kg/m2 [facility] Systolic blood pressure 2023-04-09 01:04:48 135 mm[Hg] [facility] Diastolic blood pressure 2023-04-09 01:04:48 84 mm[Hg] [facility] Heart rate 2023-04-09 01:04:48 67 /min [facility] Respiratory rate 2023-04-09 01:04:48 16 /min [facility] Oxygen saturation in Arterial blood by Pulse oximetry 2023-04-09 01:04:48 99 /min [facility] Body temperature 2023-04-08 22:16:00 36.67 Latanya [facility] Body height 2023-04-08 22:16:00 157.5 cm [facility] Body weight 2023-04-08 22:16:00 99.791 kg [facility] BMI 2023-04-08 22:16:00 40.24 kg/m2 [facility] Systolic blood pressure 2023-03-10 05:00:00 156 mm[Hg] [facility] Diastolic blood pressure 2023-03-10 05:00:00 94 mm[Hg] [facility] Heart rate 2023-03-10 05:00:00 75 /min [facility] Respiratory rate 2023-03-10 05:00:00 21 /min [facility] Oxygen saturation in Arterial blood by Pulse oximetry 2023-03-10 05:00:00 97 /min [facility] Body temperature 2023-03-10 01:20:00 36.72 Latanya [facility] Body height 2023-03-10 01:20:00 157.5 cm [facility] Body weight 2023-03-10 01:20:00 100.381 kg [facility] BMI 2023-03-10 01:20:00 40.48 kg/m2 [facility] Systolic blood pressure 2023-03-02 06:00:00 126 mm[Hg] [facility] Diastolic blood pressure 2023-03-02 06:00:00 79 mm[Hg] [facility] Heart rate 2023-03-02 06:00:00 69 /min [facility] Respiratory rate 2023-03-02 06:00:00 23 /min [facility] Oxygen saturation in Arterial blood by Pulse oximetry 2023-03-02 06:00:00 94 /min [facility] Body temperature 2023-03-02 00:34:00 37.28 Latanya [facility] Body height 2023-03-02 00:34:00 157.5 cm [facility] Body weight 2023-03-02 00:34:00 99.791 kg [facility] BMI 2023-03-02 00:34:00 40.24 kg/m2 [facility] Systolic blood pressure 2023-02-18 06:46:00 126 mm[Hg] [facility] Diastolic blood pressure 2023-02-18 06:46:00 77 mm[Hg] [facility] Heart rate 2023-02-18 06:46:00 79 /min [facility] Respiratory rate 2023-02-18 06:46:00 16 /min [facility] Oxygen saturation in Arterial blood by Pulse oximetry 2023-02-18 06:46:00 95 /min [facility] Body temperature 2023-02-18 03:55:00 36.72 Latanya [facility] Body height 2023-02-18 03:55:00 157.5 cm [facility] Body weight 2023-02-18 03:55:00 102.331 kg [facility] BMI 2023-02-18 03:55:00 41.26 kg/m2 [facility] Systolic blood pressure 2023-02-17 16:20:00 113 mm[Hg] [facility] Diastolic blood pressure 2023-02-17 16:20:00 65 mm[Hg] [facility] Heart rate 2023-02-17 16:20:00 65 /min [facility] Body temperature 2023-02-17 16:20:00 36.83 Latanya [facility] Respiratory rate 2023-02-17 16:20:00 16 /min [facility] Oxygen saturation in Arterial blood by Pulse oximetry 2023-02-17 16:20:00 97 /min [facility] Body weight 2023-02-17 08:50:00 99.973 kg [facility] BMI 2023-02-17 08:50:00 40.31 kg/m2 [facility] Body height 2023-02-16 01:19:00 157.5 cm [facility] Systolic blood pressure 2022-01-10 01:24:00 120 mm[Hg] [facility] Diastolic blood pressure 2022-01-10 01:24:00 76 mm[Hg] [facility] Heart rate 2022-01-10 01:24:00 73 /min [facility] Respiratory rate 2022-01-10 01:24:00 16 /min [facility] Oxygen saturation in Arterial blood by Pulse oximetry 2022-01-10 01:24:00 96 /min [facility] Body weight 2022-01-09 21:39:00 104.327 kg [facility] BMI 2022-01-09 21:39:00 42.07 kg/m2 [facility] Systolic blood pressure 2021-12-14 07:22:00 121 mm[Hg] [facility] Diastolic blood pressure 2021-12-14 07:22:00 86 mm[Hg] [facility] Heart rate 2021-12-14 07:22:00 80 /min [facility] Respiratory rate 2021-12-14 07:22:00 17 /min [facility] Oxygen saturation in Arterial blood by Pulse oximetry 2021-12-14 07:22:00 96 /min [facility] Body temperature 2021-12-14 03:06:00 36.72 Latanya [facility] Body height 2021-12-14 03:06:00 157.5 cm [facility] Body weight 2021-12-14 03:06:00 95.255 kg [facility] BMI 2021-12-14 03:06:00 38.41 kg/m2 [facility] Systolic blood pressure 2021-11-12 04:15:00 112 mm[Hg] [facility] Diastolic blood pressure 2021-11-12 04:15:00 75 mm[Hg] [facility] Heart rate 2021-11-12 04:15:00 92 /min [facility] Body temperature 2021-11-12 04:15:00 36.44 Latanya [facility] Respiratory rate 2021-11-12 04:15:00 18 /min [facility] Oxygen saturation in Arterial blood by Pulse oximetry 2021-11-12 04:15:00 98 /min [facility] Body height 2021-11-12 00:41:00 157.5 cm [facility] Body weight 2021-11-12 00:41:00 95.255 kg [facility] BMI 2021-11-12 00:41:00 38.41 kg/m2 [facility] Systolic blood pressure 2021-09-12 01:31:00 142 mm[Hg] [facility] Diastolic blood pressure 2021-09-12 01:31:00 80 mm[Hg] [facility] Heart rate 2021-09-12 01:31:00 78 /min [facility] Body temperature 2021-09-12 01:31:00 36.72 Latanya [facility] Respiratory rate 2021-09-12 01:31:00 18 /min [facility] Body height 2021-09-12 01:31:00 157.5 cm [facility] Body weight 2021-09-12 01:31:00 99.791 kg [facility] BMI 2021-09-12 01:31:00 40.24 kg/m2 [facility] Oxygen saturation in Arterial blood by Pulse oximetry 2021-09-12 01:31:00 97 /min [facility] Systolic blood pressure 2021-08-15 08:20:00 120 mm[Hg] [facility] Diastolic blood pressure 2021-08-15 08:20:00 74 mm[Hg] [facility] Heart rate 2021-08-15 08:20:00 69 /min [facility] Respiratory rate 2021-08-15 08:20:00 20 /min [facility] Oxygen saturation in Arterial blood by Pulse oximetry 2021-08-15 08:20:00 96 /min [facility] Body temperature 2021-08-15 05:34:00 36.22 Latanya [facility] Body height 2021-08-15 05:34:00 157.5 cm [facility] Body weight 2021-08-15 05:34:00 99.791 kg [facility] BMI 2021-08-15 05:34:00 40.24 kg/m2 [facility] Systolic blood pressure 2021-05-28 10:00:00 122 mm[Hg] [facility] Diastolic blood pressure 2021-05-28 10:00:00 78 mm[Hg] [facility] Heart rate 2021-05-28 10:00:00 75 /min [facility] Respiratory rate 2021-05-28 10:00:00 20 /min [facility] Oxygen saturation in Arterial blood by Pulse oximetry 2021-05-28 10:00:00 99 /min [facility] Body temperature 2021-05-28 05:21:00 36.11 Latanya [facility] Body height 2021-05-28 05:21:00 157.5 cm [facility] Body weight 2021-05-28 05:21:00 99.791 kg [facility] BMI 2021-05-28 05:21:00 40.24 kg/m2 [facility] Systolic blood pressure 2021-04-08 21:55:00 110 mm[Hg] [facility] Diastolic blood pressure 2021-04-08 21:55:00 80 mm[Hg] [facility] Heart rate 2021-04-08 21:55:00 70 /min [facility] Body temperature 2021-04-08 21:55:00 36.28 Latanya [facility] Respiratory rate 2021-04-08 21:55:00 16 /min [facility] Oxygen saturation in Arterial blood by Pulse oximetry 2021-04-08 21:55:00 94 /min [facility] Body height 2021-04-08 03:00:00 157.5 cm [facility] Body weight 2021-04-08 03:00:00 105.688 kg [facility] BMI 2021-04-08 03:00:00 42.62 kg/m2 [facility] Systolic blood pressure 2021-01-12 09:00:00 147 mm[Hg] [facility] Diastolic blood pressure 2021-01-12 09:00:00 71 mm[Hg] [facility] Heart rate 2021-01-12 09:00:00 103 /min [facility] Respiratory rate 2021-01-12 09:00:00 18 /min [facility] Oxygen saturation in Arterial blood by Pulse oximetry 2021-01-12 09:00:00 97 /min [facility] Body temperature 2021-01-12 07:48:00 37.06 Latanya [facility] Body height 2021-01-12 07:48:00 157.5 cm [facility] Body weight 2021-01-12 07:48:00 102.513 kg [facility] BMI 2021-01-12 07:48:00 41.34 kg/m2 [facility] Systolic blood pressure 2020-12-11 01:30:00 136 mm[Hg] [facility] Diastolic blood pressure 2020-12-11 01:30:00 88 mm[Hg] [facility] Heart rate 2020-12-11 01:30:00 99 /min [facility] Respiratory rate 2020-12-11 01:30:00 28 /min [facility] Oxygen saturation in Arterial blood by Pulse oximetry 2020-12-11 01:30:00 97 /min [facility] Body temperature 2020-12-10 22:11:00 36.78 Latanya [facility] Body weight 2020-12-10 22:11:00 99.791 kg [facility] BMI 2020-12-10 22:11:00 40.24 kg/m2 [facility] Systolic blood pressure 2020-12-04 21:30:00 126 mm[Hg] [facility] Diastolic blood pressure 2020-12-04 21:30:00 79 mm[Hg] [facility] Heart rate 2020-12-04 21:30:00 91 /min [facility] Respiratory rate 2020-12-04 21:30:00 20 /min [facility] Oxygen saturation in Arterial blood by Pulse oximetry 2020-12-04 21:30:00 96 /min [facility] Body temperature 2020-12-04 19:49:00 37.06 Latanya [facility] Body height 2020-12-04 19:49:00 157.5 cm [facility] Body weight 2020-12-04 19:49:00 99.791 kg [facility] BMI 2020-12-04 19:49:00 40.24 kg/m2 [facility] Systolic blood pressure 2020-11-04 01:42:00 142 mm[Hg] [facility] Diastolic blood pressure 2020-11-04 01:42:00 100 mm[Hg] [facility] Heart rate 2020-11-04 01:42:00 109 /min [facility] Body temperature 2020-11-04 01:42:00 36.78 Latanya [facility] Respiratory rate 2020-11-04 01:42:00 20 /min [facility] Body weight 2020-11-04 01:42:00 99.791 kg [facility] BMI 2020-11-04 01:42:00 40.24 kg/m2 [facility] Oxygen saturation in Arterial blood by Pulse oximetry 2020-11-04 01:42:00 98 /min [facility] Systolic blood pressure 2020-09-17 15:52:00 138 mm[Hg] [facility] Diastolic blood pressure 2020-09-17 15:52:00 94 mm[Hg] [facility] Heart rate 2020-09-17 15:52:00 98 /min [facility] Body temperature 2020-09-17 15:52:00 36.94 Latanya [facility] Respiratory rate 2020-09-17 15:52:00 20 /min [facility] Body weight 2020-09-17 15:52:00 95.255 kg [facility] BMI 2020-09-17 15:52:00 38.41 kg/m2 [facility] Oxygen saturation in Arterial blood by Pulse oximetry 2020-09-17 15:52:00 97 /min [facility] Systolic blood pressure 2020-09-17 15:52:00 138 mm[Hg] [facility] Diastolic blood pressure 2020-09-17 15:52:00 94 mm[Hg] [facility] Heart rate 2020-09-17 15:52:00 98 /min [facility] Body temperature 2020-09-17 15:52:00 36.94 Latanya [facility] Respiratory rate 2020-09-17 15:52:00 20 /min [facility] Body weight 2020-09-17 15:52:00 95.255 kg [facility] BMI 2020-09-17 15:52:00 38.41 kg/m2 [facility] Oxygen saturation in Arterial blood by Pulse oximetry 2020-09-17 15:52:00 97 /min [facility] Systolic blood pressure 2020-09-07 06:35:00 123 mm[Hg] [facility] Diastolic blood pressure 2020-09-07 06:35:00 56 mm[Hg] [facility] Heart rate 2020-09-07 06:35:00 97 /min [facility] Body temperature 2020-09-07 06:35:00 36.28 Latanya [facility] Respiratory rate 2020-09-07 06:35:00 18 /min [facility] Body weight 2020-09-07 06:35:00 99.791 kg [facility] BMI 2020-09-07 06:35:00 40.24 kg/m2 [facility] Oxygen saturation in Arterial blood by Pulse oximetry 2020-09-07 06:35:00 98 /min [facility] Systolic blood pressure 2020-09-07 06:35:00 123 mm[Hg] [facility] Diastolic blood pressure 2020-09-07 06:35:00 56 mm[Hg] [facility] Heart rate 2020-09-07 06:35:00 97 /min [facility] Body temperature 2020-09-07 06:35:00 36.28 Latanya [facility] Respiratory rate 2020-09-07 06:35:00 18 /min [facility] Body weight 2020-09-07 06:35:00 99.791 kg [facility] BMI 2020-09-07 06:35:00 40.24 kg/m2 [facility] Oxygen saturation in Arterial blood by Pulse oximetry 2020-09-07 06:35:00 98 /min [facility] Systolic blood pressure 2020-08-28 09:00:00 132 mm[Hg] [facility] Diastolic blood pressure 2020-08-28 09:00:00 87 mm[Hg] [facility] Heart rate 2020-08-28 09:00:00 90 /min [facility] Respiratory rate 2020-08-28 09:00:00 20 /min [facility] Oxygen saturation in Arterial blood by Pulse oximetry 2020-08-28 09:00:00 97 /min [facility] Body temperature 2020-08-28 07:59:00 36.72 Latanya [facility] Body height 2020-08-28 07:59:00 157.5 cm [facility] Body weight 2020-08-28 07:59:00 99.791 kg [facility] BMI 2020-08-28 07:59:00 40.24 kg/m2 [facility] Systolic blood pressure 2020-08-28 09:00:00 132 mm[Hg] [facility] Diastolic blood pressure 2020-08-28 09:00:00 87 mm[Hg] [facility] Heart rate 2020-08-28 09:00:00 90 /min [facility] Respiratory rate 2020-08-28 09:00:00 20 /min [facility] Oxygen saturation in Arterial blood by Pulse oximetry 2020-08-28 09:00:00 97 /min [facility] Body temperature 2020-08-28 07:59:00 36.72 Latanya [facility] Body height 2020-08-28 07:59:00 157.5 cm [facility] Body weight 2020-08-28 07:59:00 99.791 kg [facility] BMI 2020-08-28 07:59:00 40.24 kg/m2 [facility] Systolic blood pressure 2020-08-14 19:40:00 135 mm[Hg] [facility] Diastolic blood pressure 2020-08-14 19:40:00 100 mm[Hg] [facility] Heart rate 2020-08-14 19:40:00 68 /min [facility] Body temperature 2020-08-14 19:40:00 37.11 Latanya [facility] Respiratory rate 2020-08-14 19:40:00 19 /min [facility] Oxygen saturation in Arterial blood by Pulse oximetry 2020-08-14 19:40:00 99 /min [facility] Body height 2020-08-14 17:41:00 157.5 cm [facility] Body weight 2020-08-14 17:41:00 99.791 kg [facility] BMI 2020-08-14 17:41:00 40.24 kg/m2 [facility] Systolic blood pressure 2020-08-14 19:40:00 135 mm[Hg] [facility] Diastolic blood pressure 2020-08-14 19:40:00 100 mm[Hg] [facility] Heart rate 2020-08-14 19:40:00 68 /min [facility] Body temperature 2020-08-14 19:40:00 37.11 Latanya [facility] Respiratory rate 2020-08-14 19:40:00 19 /min [facility] Oxygen saturation in Arterial blood by Pulse oximetry 2020-08-14 19:40:00 99 /min [facility] Body height 2020-08-14 17:41:00 157.5 cm [facility] Body weight 2020-08-14 17:41:00 99.791 kg [facility] BMI 2020-08-14 17:41:00 40.24 kg/m2 [facility] Systolic blood pressure 2020-08-11 04:00:00 106 mm[Hg] [facility] Diastolic blood pressure 2020-08-11 04:00:00 92 mm[Hg] [facility] Heart rate 2020-08-11 04:00:00 90 /min [facility] Respiratory rate 2020-08-11 04:00:00 16 /min [facility] Oxygen saturation in Arterial blood by Pulse oximetry 2020-08-11 04:00:00 99 /min [facility] Body temperature 2020-08-11 03:12:56 37.72 Latanya [facility] Body height 2020-08-11 00:19:00 157.5 cm [facility] Body weight 2020-08-11 00:19:00 99.791 kg [facility] BMI 2020-08-11 00:19:00 40.24 kg/m2 [facility] Systolic blood pressure 2020-08-11 04:00:00 106 mm[Hg] [facility] Diastolic blood pressure 2020-08-11 04:00:00 92 mm[Hg] [facility] Heart rate 2020-08-11 04:00:00 90 /min [facility] Respiratory rate 2020-08-11 04:00:00 16 /min [facility] Oxygen saturation in Arterial blood by Pulse oximetry 2020-08-11 04:00:00 99 /min [facility] Body temperature 2020-08-11 03:12:56 37.72 Latanya [facility] Body height 2020-08-11 00:19:00 157.5 cm [facility] Body weight 2020-08-11 00:19:00 99.791 kg [facility] BMI 2020-08-11 00:19:00 40.24 kg/m2 [facility] Systolic blood pressure 2020-08-07 13:16:00 100 mm[Hg] [facility] Diastolic blood pressure 2020-08-07 13:16:00 69 mm[Hg] [facility] Heart rate 2020-08-07 13:16:00 99 /min [facility] Body temperature 2020-08-07 13:16:00 36.67 Latanya [facility] Respiratory rate 2020-08-07 13:16:00 18 /min [facility] Body weight 2020-08-07 13:16:00 95.255 kg [facility] BMI 2020-08-07 13:16:00 38.41 kg/m2 [facility] Oxygen saturation in Arterial blood by Pulse oximetry 2020-08-07 13:16:00 99 /min [facility] Systolic blood pressure 2020-08-07 13:16:00 100 mm[Hg] [facility] Diastolic blood pressure 2020-08-07 13:16:00 69 mm[Hg] [facility] Heart rate 2020-08-07 13:16:00 99 /min [facility] Body temperature 2020-08-07 13:16:00 36.67 Latanya [facility] Respiratory rate 2020-08-07 13:16:00 18 /min [facility] Body weight 2020-08-07 13:16:00 95.255 kg [facility] BMI 2020-08-07 13:16:00 38.41 kg/m2 [facility] Oxygen saturation in Arterial blood by Pulse oximetry 2020-08-07 13:16:00 99 /min [facility] Systolic blood pressure 2020-07-01 02:00:00 136 mm[Hg] [facility] Diastolic blood pressure 2020-07-01 02:00:00 85 mm[Hg] [facility] Heart rate 2020-07-01 02:00:00 73 /min [facility] Respiratory rate 2020-07-01 02:00:00 20 /min [facility] Oxygen saturation in Arterial blood by Pulse oximetry 2020-07-01 02:00:00 97 /min [facility] Body temperature 2020-06-30 23:36:00 36.56 Latanya [facility] Body height 2020-06-30 23:36:00 157.5 cm [facility] Body weight 2020-06-30 23:36:00 95.255 kg [facility] BMI 2020-06-30 23:36:00 38.41 kg/m2 [facility] Systolic blood pressure 2020-07-01 02:00:00 136 mm[Hg] [facility] Diastolic blood pressure 2020-07-01 02:00:00 85 mm[Hg] [facility] Heart rate 2020-07-01 02:00:00 73 /min [facility] Respiratory rate 2020-07-01 02:00:00 20 /min [facility] Oxygen saturation in Arterial blood by Pulse oximetry 2020-07-01 02:00:00 97 /min [facility] Body temperature 2020-06-30 23:36:00 36.56 Latanya [facility] Body height 2020-06-30 23:36:00 157.5 cm [facility] Body weight 2020-06-30 23:36:00 95.255 kg [facility] BMI 2020-06-30 23:36:00 38.41 kg/m2 [facility] Systolic blood pressure 2020-06-28 21:57:00 151 mm[Hg] [facility] Diastolic blood pressure 2020-06-28 21:57:00 88 mm[Hg] [facility] Heart rate 2020-06-28 21:57:00 94 /min [facility] Body temperature 2020-06-28 21:57:00 37.78 Latanya [facility] Respiratory rate 2020-06-28 21:57:00 16 /min [facility] Body height 2020-06-28 21:57:00 157.5 cm [facility] Body weight 2020-06-28 21:57:00 95.255 kg [facility] BMI 2020-06-28 21:57:00 38.41 kg/m2 [facility] Oxygen saturation in Arterial blood by Pulse oximetry 2020-06-28 21:57:00 96 /min [facility] Systolic blood pressure 2020-06-28 21:57:00 151 mm[Hg] [facility] Diastolic blood pressure 2020-06-28 21:57:00 88 mm[Hg] [facility] Heart rate 2020-06-28 21:57:00 94 /min [facility] Body temperature 2020-06-28 21:57:00 37.78 Latanya [facility] Respiratory rate 2020-06-28 21:57:00 16 /min [facility] Body height 2020-06-28 21:57:00 157.5 cm [facility] Body weight 2020-06-28 21:57:00 95.255 kg [facility] BMI 2020-06-28 21:57:00 38.41 kg/m2 [facility] Oxygen saturation in Arterial blood by Pulse oximetry 2020-06-28 21:57:00 96 /min [facility] Systolic blood pressure 2020-06-13 03:40:00 122 mm[Hg] [facility] Diastolic blood pressure 2020-06-13 03:40:00 78 mm[Hg] [facility] Heart rate 2020-06-13 03:40:00 90 /min [facility] Respiratory rate 2020-06-13 03:40:00 18 /min [facility] Oxygen saturation in Arterial blood by Pulse oximetry 2020-06-13 03:40:00 94 /min [facility] Body temperature 2020-06-12 23:39:00 37.22 Latanya [facility] Body weight 2020-06-12 23:39:00 97.07 kg [facility] BMI 2020-06-12 23:39:00 39.14 kg/m2 [facility] Systolic blood pressure 2020-06-13 03:40:00 122 mm[Hg] [facility] Diastolic blood pressure 2020-06-13 03:40:00 78 mm[Hg] [facility] Heart rate 2020-06-13 03:40:00 90 /min [facility] Respiratory rate 2020-06-13 03:40:00 18 /min [facility] Oxygen saturation in Arterial blood by Pulse oximetry 2020-06-13 03:40:00 94 /min [facility] Body temperature 2020-06-12 23:39:00 37.22 Latanya [facility] Body weight 2020-06-12 23:39:00 97.07 kg [facility] BMI 2020-06-12 23:39:00 39.14 kg/m2 [facility] Heart rate 2020-05-17 00:40:00 82 /min [facility] Respiratory rate 2020-05-17 00:40:00 18 /min [facility] Oxygen saturation in Arterial blood by Pulse oximetry 2020-05-17 00:40:00 95 /min [facility] Systolic blood pressure 2020-05-17 00:00:00 137 mm[Hg] [facility] Diastolic blood pressure 2020-05-17 00:00:00 93 mm[Hg] [facility] Body temperature 2020-05-16 23:17:00 37.61 Latanya [facility] Body weight 2020-05-16 23:17:00 97.07 kg [facility] BMI 2020-05-16 23:17:00 39.14 kg/m2 [facility] Heart rate 2020-05-17 00:40:00 82 /min [facility] Respiratory rate 2020-05-17 00:40:00 18 /min [facility] Oxygen saturation in Arterial blood by Pulse oximetry 2020-05-17 00:40:00 95 /min [facility] Systolic blood pressure 2020-05-17 00:00:00 137 mm[Hg] [facility] Diastolic blood pressure 2020-05-17 00:00:00 93 mm[Hg] [facility] Body temperature 2020-05-16 23:17:00 37.61 Latanya [facility] Body weight 2020-05-16 23:17:00 97.07 kg [facility] BMI 2020-05-16 23:17:00 39.14 kg/m2 [facility] Systolic blood pressure 2020-05-15 08:50:00 131 mm[Hg] [facility] Diastolic blood pressure 2020-05-15 08:50:00 80 mm[Hg] [facility] Heart rate 2020-05-15 08:50:00 70 /min [facility] Respiratory rate 2020-05-15 08:50:00 18 /min [facility] Oxygen saturation in Arterial blood by Pulse oximetry 2020-05-15 08:50:00 97 /min [facility] Body temperature 2020-05-15 05:29:00 36.44 Latanya [facility] Body height 2020-05-15 05:29:00 157.5 cm [facility] Body weight 2020-05-15 05:29:00 97.07 kg Simultaneous filing. User may not have seen previous data. [facility] BMI 2020-05-15 05:29:00 39.14 kg/m2 [facility] Systolic blood pressure 2020-05-15 08:50:00 131 mm[Hg] [facility] Diastolic blood pressure 2020-05-15 08:50:00 80 mm[Hg] [facility] Heart rate 2020-05-15 08:50:00 70 /min [facility] Respiratory rate 2020-05-15 08:50:00 18 /min [facility] Oxygen saturation in Arterial blood by Pulse oximetry 2020-05-15 08:50:00 97 /min [facility] Body temperature 2020-05-15 05:29:00 36.44 Latanya [facility] Body height 2020-05-15 05:29:00 157.5 cm [facility] Body weight 2020-05-15 05:29:00 97.07 kg Simultaneous filing. User may not have seen previous data. [facility] BMI 2020-05-15 05:29:00 39.14 kg/m2 [facility] Procedures Procedure Date / Time Performed Performing Clinician Source CT ABDOMEN PELVIS W CONTRAST 2024-11-11 04:01:35 Olivia Garcia [facility] POCT TEST 2024-11-11 02:26:00 Olivia Garcia [facility] LIPASE 2024-11-11 02:23:00 Olivia Garcia [facility] COMP. METABOLIC PANEL (82320) 2024-11-11 02:23:00 Olivia Garcia [facility] CBC WITH DIFF 2024-11-11 02:23:00 Olivia Garcia [facility] URINALYSIS 2024-11-11 02:23:00 Olivia Garcia [facility] MAGNESIUM 2024-11-04 09:46:00 Corinna Cowan [facility] BASIC METABOLIC PANEL (NA, K, CL, CO2, GLUCOSE, BUN, CREATININE, CA) 2024-11-04 09:46:00 Jean Carlos Cowan [facility] CBC WITH DIFF 2024-11-04 09:46:00 Corinna Cowan [facility] MAGNESIUM 2024-11-04 09:46:00 Corinna Cowan [facility] BASIC METABOLIC PANEL (NA, K, CL, CO2, GLUCOSE, BUN, CREATININE, CA) 2024-11-04 09:46:00 Jean Carlos Cowan [facility] CBC WITH DIFF 2024-11-04 09:46:00 Corinna Cowan [facility] CATH PROCEDURE LOG 2024-11-03 20:05:03 Rosario Virk U r [facility] CATH PROCEDURE LOG 2024-11-03 20:05:03 Rosario Virk U r [facility] CARDIAC CATHETERIZATION 2024-11-03 19:40:00 Sully, Rika uja Ur [facility] CARDIAC CATHETERIZATION 2024-11-03 19:40:00 Sully, Rika kiana Ur [facility] CARDIAC CATHETERIZATION 2024-11-03 19:40:00 Sully, Rika uja Ur [facility] CARDIAC CATHETERIZATION 2024-11-03 19:40:00 Sully Rika arianneja Ur [facility] CARDIAC CATHETERIZATION 2024-11-03 19:40:00 Rika Virk uja Ur [facility] CARDIAC CATHETERIZATION 2024-11-03 19:40:00 Sully Rika uja Ur [facility] ACTIVATED PARTIAL THRMPLAS MARCIO 2024-11-03 14:13[facility] 2024-11-03 14:13:00 Jesús Montero [facility] MAGNESIUM 2024-11-03 11:08:00 Corinna Cowan [facility] BASIC METABOLIC PANEL (NA, K, CL, CO2, GLUCOSE, BUN, CREATININE, CA) 2024-11-03 11:08:00 Jean Carlos Cowan [facility] MAGNESIUM 2024-11-03 11:08:00 Corinna Cowan [facility] BASIC METABOLIC PANEL (NA, K, CL, CO2, GLUCOSE, BUN, CREATININE, CA) 2024-11-03 11:08:00 Jean Carlos Cowan [facility] CBC WITH DIFF 2024-11-03 09:45:00 Corinna Cowan [facility] CBC WITH DIFF 2024-11-03 09:45:00 Corinna Cowan [facility] ACTIVATED PARTIAL THRMPLAS MARCIO 2024-11-03 07:43:[address] [facility] ACTIVATED PARTIAL THRMPLAS MARCIO 2024-11-03 07:43:[address] [facility] ACTIVATED PARTIAL THRMPLAS MARCIO 2024-11-03 00:54:[address] [facility] ACTIVATED PARTIAL THRMPLAS MARCIO 2024-11-03 00:54:[address] [facility] HB ECG ROUTINE & RHYTHM STRIP 2024-11-02 21:49:21 Ros[facility] ACTIVATED PARTIAL THRMPLAS MARCIO 2024-11-02 14:41:[address] [facility] ACTIVATED PARTIAL THRMPLAS MARCIO 2024-11-02 14:41:[address] [facility] MAGNESIUM 2024-11-02 08:35:00 Farnaz Nixon [facility] BASIC METABOLIC PANEL (NA, K, CL, CO2, GLUCOSE, BUN, CREATININE, CA) 2024-11-02 08:35[facility]24-11-02 08:35:00 Hussain Farnaz [facility] ACTIVATED PARTIAL THRMPLAS MARCIO 2024-11-02 08:35:[address] [facility] MAGNESIUM 2024-11-02 08:35:00 Hussain [facility] BASIC METABOLIC PANEL (NA, K, CL, CO2, GLUCOSE, BUN, CREATININE, CA) 2024-11-02 08:35:00 Hussain [facility] CBC WITH DIFF 2024-11-02 08:35:00 Hussain [facility] ACTIVATED PARTIAL THRMPLAS MARCIO 2024-11-02 08:35:00 [facility], NARES 2024-11-02 02:11:00 Hussain [facility] MRSA / MSSA SCREEN BY PCR, NARES 2024-11-02 02:11:00 Hussain [facility] PHOSPHORUS 2024-11-02 02:08:00 Hussain [facility] TROPONIN I 2024-11-02 02:08:00 Hussain [facility] ACTIVATED PARTIAL THRMPLAS MARCIO 2024-11-02 02:08:00 [facility] 2024-11-02 02:08:00 Brantt [facility] TROPONIN I 2024-11-02 02:08:00 Hussain [facility] ACTIVATED PARTIAL THRMPLAS MARCIO 2024-11-02 02:08:[address] [facility] HB ECG ROUTINE & RHYTHM STRIP 2024-11-01 23:29:25 Hussain [facility] HB ECG ROUTINE & RHYTHM STRIP 2024-11-01 23:29:25 Hussain [facility] URINALYSIS 2024-11-01 19:35:00 Susie Brewer [facility] URINE CULTURE 2024-11-01 19:35:00 Susie Brewer [facility] URINALYSIS 2024-11-01 19:35:00 Susie Brewer [facility] URINE CULTURE 2024-11-01 19:35:00 Susie Brewer [facility] PROTHROMBIN TIME / INR 2024-11-01 19:34:00 Parmjit Montero [facility] ACTIVATED PARTIAL THRMPLAS MARCIO 2024-11-01 19:34:00 Jesús Montero [facility] PROTHROMBIN TIME / INR 2024-11-01 19:34:00 Parmjit Montero [facility] ACTIVATED PARTIAL THRMPLAS MARCIO 2024-11-01 19:34:00 Jesús Montero [facility] TRANSTHORACIC ECHO (TTE) COMPLETE W/ CONTRAST 2024-11-01 13:44:00 Edcecilia [facility] TRANSTHORACIC ECHO (TTE) COMPLETE W/ CONTRAST 2024-11-01 13:44:00 Viviana [facility] TROPONIN I 2024-11-01 13:26:00 Viviana [facility] THYROID STIMULATING HORMONE 2024-11-01 13:26:00 Farnaz Nixon [facility] LIPID PANEL ([id number])(TOTAL CHOLESTEROL, TRIGLYCERIDES, HDL) 2024-11-01 13:26:00 Natasha Hernandes [facility] N-TERMINAL PRO-BNP 2024-11-01 13:26:00 Natasha Hernandes [facility] TROPONIN I 2024-11-01 13:26:00 Viviana [facility] THYROID STIMULATING HORMONE 2024-11-01 13:26:00 Farnaz Nixon [facility] LIPID PANEL ([id number])(TOTAL CHOLESTEROL, TRIGLYCERIDES, HDL) 2024-11-01 13:26:00 Natasha Hernandes [facility] N-TERMINAL PRO-BNP 2024-11-01 13:26:00 Cecilio Sendil [facility] INFLUENZA A/B RSV COVID NAAT 2024-11-01 09:35:00 Viviana [facility] LAB ONLY COVID INTERPRETATION 2024-11-01 09:35:00 Viviana [facility] INFLUENZA A/B RSV COVID NAAT 2024-11-01 09:35:00 Viviana [facility] LAB ONLY COVID INTERPRETATION 2024-11-01 09:35:00 Viviana [facility] TROPONIN I 2024-11-01 07:17:00 [facility]OLIC PANEL (NA, K, CL, CO2, GLUCOSE, BUN, CREATININE, CA) 2024-11-01 07:17:00 [facility]FF 2024-11-01 07:17[facility]00 [facility] GLYCOS[facility] HEMOGLOBIN (A1C) 2024-11-01 07:17:00 Natasha Hernandes [facility] PROCALCITONIN 2024-11-01 07:17[facility]-01 07:17:00 [facility] BASIC METABOLIC PANEL (NA, K, CL, CO2, GLUCOSE, BUN, CREATININE, CA) 2024-11-01 07:17:00 [facility] WITH DIFF 2024-11-01 07:17:00 [facility] GLYCOSYLATED HEMOGLOBIN (A1C) 2024-11-01 07:17:00 Natasha Hernandes [facility] PROCALCITONIN 2024-11-01 07:17:00 [facility] XR CHEST 1 2024-11-01 03:19:58 Olivia Garcia [facility] XR CHEST 1 2024-11-01 03:19:58 Olivia Garcia [facility] LIPASE 2024-11-01 02:53:00 Olivia Garcia [facility] TROPONIN I 2024-11-01 02:53:00 Olivia Garcia [facility] COMP. METABOLIC PANEL ([id number]) 2024-11-01 02:53:00 Olivia Garcia [facility] CBC WITH DIFF 2024-11-01 02:53:00 Olivia Garcia [facility] LIPASE 2024-11-01 02:53:00 Olivia Garcia [facility] TROPONIN I 2024-11-01 02:53:00 Olivia Garcia [facility] COMP. METABOLIC PANEL ([id number]) 2024-11-01 02:53:00 Olivia Garcia [facility] CBC WITH DIFF 2024-11-01 02:53:00 Olivia Garcia [facility] HB ECG ROUTINE & RHYTHM STRIP 2024-11-01 02:32:05 Olivia Garcia [facility] HB ECG ROUTINE & RHYTHM STRIP 2024-11-01 02:32:05 Olivia Garcia [facility] CT ABDOMEN PELVIS W CONTRAST 2024-10-24 03:31:17 Levar Barker [facility] LIPASE 2024-10-24 01:34:00 Levar Barker [facility] COMP. METABOLIC PANEL ([id number]) 2024-10-24 01:34:00 Levar Barker [facility] CBC WITH DIFF 2024-10-24 01:34:00 Levar Barker [facility] URINALYSIS 2024-10-24 01:34:00 Levar Barker [facility] TROPONIN I 2024-10-13 06:39:00 Olivia Garcia [facility] LIPASE 2024-10-13 04:20:00 Olivia Garcia [facility] TROPONIN I 2024-10-13 04:20:00 Olivia Garcia [facility] COMP. METABOLIC PANEL ([id number]) 2024-10-13 04:20:00 Olivia Garcia [facility] CBC WITH DIFF 2024-10-13 04:20:00 Olivia Garcia [facility] N-TERMINAL PRO-BNP 2024-10-13 04:20:00 Olivia Garcia [facility] POCT TEST 2024-10-13 03:46:00 Olivia Garcia [facility] URINALYSIS 2024-10-13 03:39:00 Olivia Garcia [facility] URINE DRUG (IMMUNOASSAY) - COMPREHENSIVE DRUG SCREEN 2024-07-19 06:11:00 Saleem Edward [facility] URINALYSIS 2024-07-19 06:11:00 Saleem Edward [facility] CT CHEST PULMONARY ANGIOGRAM 2024-07-19 05:46:40 Saleem Edward [facility] MAGNESIUM 2024-07-19 05:08:00 Saleem Edward [facility] TROPONIN I 2024-07-19 05:08:00 Saleem Edward Eleni [facility] COMP. METABOLIC PANEL ([id number]) 2024-07-19 05:08:00 Saleem Edward Eleni [facility] CBC WITH DIFF 2024-07-19 05:08:00 Saleem Edward [facility] INFLUENZA A/B RSV COVID NAAT 2024-07-19 05:08:00 Saleem Edward [facility] N-TERMINAL PRO-BNP 2024-07-19 05:08:00 Saleem Edward [facility] CT ABDOMEN PELVIS W CONTRAST 2024-07-04 05:47:25 Sandy Garcia [facility] POCT TEST 2024-07-04 05:33:00 oRss Garcia [facility] LIPASE 2024-07-04 03:23:00 Sandy [facility] COMP. METABOLIC PANEL ([id number]) 2024-07-04 03:23:00 Sandy Garcia [facility] CBC WITH DIFF 2024-07-04 03:23:00 Sandy Garcia [facility] URINALYSIS 2024-07-04 03:23:00 [facility] ABDOMEN PELVIS W CONTRAST 2024-06-15 05:33:59 Sandy Garcia [facility] URINALYSIS 2024-06-15 04:18:00 Sandy Garcia [facility] LIPASE 2024-06-15 04:14:00 Sandy Garcia [facility] TEST, SERUM 2024-06-15 04:14:00 Laney Garcia [facility] TROPONIN I 2024-06-15 04:14:00 Sandy Garcia [facility] COMP. METABOLIC PANEL ([id number]) 2024-06-15 04:14:00 Sandy Garcia [facility] CBC WITH DIFF 2024-06-15 04:14[facility]00 [facility] 2024-06-07 07:19:00 Olivia Garcia [facility] XR CHEST 1 VW 2024-06-07 05:38:37 Olivia Garcia [facility] POCT TEST 2024-06-07 05:19:00 Olivia Garcia [facility] URINE DRUG (IMMUNOASSAY) - COMPREHENSIVE DRUG SCREEN 2024-06-07 05:18:00 Olivia Garcia [facility] TROPONIN I 2024-06-07 04:10:00 Olivia Garcia [facility] COMP. METABOLIC PANEL ([id number]) 2024-06-07 04:10:00 Olivia Garcia [facility] CBC WITH DIFF 2024-06-07 04:10:00 Olivia Garcia [facility] CT HEAD WO CONTRAST 2024-05-19 18:22:43 Annalise Wright [facility] XR ELBOW <3 VW RIGHT 2024-05-18 02:32:12 Alesha Barrera [facility] XR FOREARM 2 VW RIGHT 2024-05-18 02:32:12 Alesha Moralez [facility] XR HAND 3+ VW RIGHT 2024-05-18 02:32:12 Alesha Casanova [facility] CERVICAL SPINE WO CONTRAST 2024-05-18 02:11:45 Alesha Roy [facility] CT MAXILLOFACIAL/MANDIBLE WO CONTRAST 2024-05-18 02:11:45 Alesha Roy [facility] POCT TEST 2024-05-08 02:00:00 Saleem Edward [facility] LIPASE 2024-05-08 00:31:00 Saleem Edward [facility] MAGNESIUM 2024-05-08 00:31:00 Saleem Edward [facility] TROPONIN I 2024-05-08 00:31:00 Saleem Edward [facility] COMP. METABOLIC PANEL ([id number]) 2024-05-08 00:31:00 Saleem Edward [facility] CBC WITH DIFF 2024-05-08 00:31:00 Saleem Edward [facility] URINALYSIS 2024-05-08 00:31:00 Saleem Edward [facility] CT ABDOMEN PELVIS WO CONTRAST 2024-04-08 23:45:15 Leigh Rojo [facility] POCT TEST 2024-04-08 23:01:00 Judy Rojo [facility] LIPASE 2024-04-08 22:47:00 [facility] COMP. METABOLIC PANEL ([id number]) 2024-04-08 22:47:00 Leigh Rojo [facility] CBC WITH DIFF 2024-04-08 22:47:00 Leigh Rojo [facility] URINALYSIS 2024-04-08 22:47:00 Leigh [facility] ABDOMEN PELVIS W CONTRAST 2023-10-11 04:08:24 Olivia Garcia [facility] POCT TEST 2023-10-11 03:40:00 Olivia Garcia [facility] LIPASE 2023-10-11 03:25:00 Olivia Garcia [facility] COMP. METABOLIC PANEL ([id number]) 2023-10-11 03:25:00 Olivia Garcia [facility] CBC WITH DIFF 2023-10-11 03:25:00 Olivia Garcia [facility] URINALYSIS 2023-10-11 03:25:00 Olivia Garcia [facility] XR KUB 2023-07-02 03:34:07 Roberto Richards [facility] POCT TEST 2023-07-02 02:30:00 Alberta Richards [facility] LIPASE 2023-07-02 02:05:00 Roberto Richards [facility] COMP. METABOLIC PANEL ([id number]) 2023-07-02 02:05:00 Roberto Richards [facility] CBC WITH DIFF 2023-07-02 02:05:00 Roberto Richards [facility] URINALYSIS 2023-07-02 02:05:00 Roberto Richards [facility] URINE DRUG (IMMUNOASSAY) - COMPREHENSIVE DRUG SCREEN W/O REFLEX 2023-07-02 02:05:00 Roberto Richards [facility] CONSENT/REFUSAL FOR DIAGNOSIS AND TREATMENT 2023-07-02 01:43:05 Doctor Unassigned, [place] [facility] LIPASE 2023-05-09 22:47:00 Narayan [facility]vaez [facility] COMP. METABOLIC PANEL ([id number]) 2023-05-09 22:47:00 Narayan Narvaez [facility] CBC WITH DIFF 2023-05-09 22:47:00 Narayan Narvaez [facility] CONSENT/REFUSAL FOR DIAGNOSIS AND TREATMENT 2023-05-09 22:32:48 Doctor Unassigned, [place] [facility] CT ABDOMEN PELVIS W CONTRAST 2023-04-30 23:47:56 Narayan Narvaez [facility] COMP. METABOLIC PANEL ([id number]) 2023-04-30 23:08:00 Narayan Narvaez [facility] CBC WITH DIFF 2023-04-30 23:08:00 Narayan Narvaez [facility] POCT TEST 2023-04-30 22:59:00 Jaquan Narvaez [facility] URINALYSIS 2023-04-30 22:57:00 [facility]ayan [facility] CONSENT/REFUSAL FOR DIAGNOSIS AND TREATMENT 2023-04-30 22:14:38 Doctor Unassigned, [place] [facility] XR ABDOMEN ACUTE SERIES 2023-04-17 02:13:44 Do minal Richards [facility] POCT TEST 2023-04-17 02:11:00 Alberta Richards [facility] LIPASE 2023-04-17 02:04:00 [facility] TROPONIN I 2023-04-17 02:04:00 Roberto [facility] COMP. METABOLIC PANEL ([id number]) 2023-04-17 02:04:00 Roberto Richards [facility] CBC WITH DIFF 2023-04-17 02:04:00 [facility] 2023-04-17 02:04:00 Jalen Richards [facility] ACTIVATED PARTIAL THRMPLAS MARCIO 2023-04-17 02:04:00 Roberto Richards [facility] URINALYSIS 2023-04-17 02:04:00 [facility] N-TERMINAL PRO-BNP 2023-04-17 02:04:00 Roberto Richards [facility] URINE DRUG (IMMUNOASSAY) - COMPREHENSIVE DRUG SCREEN W/O REFLEX 2023-04-17 02:04:00 Roberto Richards [facility] CONSENT/REFUSAL FOR DIAGNOSIS AND TREATMENT 2023-04-17 01:22:36 Doctor Unassigned, [place] [facility] URINALYSIS 2023-04-09 01:02:00 Saleem Edward [facility] LIPASE 2023-04-08 23:15:00 Saleem Edward [facility] MAGNESIUM 2023-04-08 23:15:00 Saleem Edward [facility] TROPONIN I 2023-04-08 23:15:00 Saleem Edward [facility] COMP. METABOLIC PANEL ([id number]) 2023-04-08 23:15:00 Saleem Edward [facility] CBC WITH DIFF 2023-04-08 23:15:00 Saleem Edward [facility] CONSENT/REFUSAL FOR DIAGNOSIS AND TREATMENT 2023-04-08 21:57:42 Doctor Unassigned, [place] [facility] CT ABDOMEN PELVIS W CONTRAST 2023-03-10 03:38:58 Roberto Richards [facility] POCT TEST 2023-03-10 02:51:00 Alberta Richards [facility] URINALYSIS 2023-03-10 01:49:00 Roberto Rihcards [facility] LIPASE 2023-03-10 01:46:00 Roberto Richards [facility] COMP. METABOLIC PANEL ([id number]) 2023-03-10 01:46:00 Roberto Richards [facility] CBC WITH DIFF 2023-03-10 01:46:00 Roberto Richards [facility] CONSENT/REFUSAL FOR DIAGNOSIS AND TREATMENT 2023-03-10 01:36:24 Doctor Unassigned, [place] [facility] CONSENT/REFUSAL FOR DIAGNOSIS AND TREATMENT 2023-03-10 01:14:40 Doctor Unassigned, [place] [facility] CT ABDOMEN PELVIS W CONTRAST 2023-03-02 05:16:35 Olivia Garcia [facility] POCT TEST 2023-03-02 03:26:00 Olivia Garcia [facility] LIPASE 2023-03-02 03:23:00 Olivia Garcia [facility] COMP. METABOLIC PANEL ([id number]) 2023-03-02 03:23:00 Olivia Garcia [facility] CBC WITH DIFF 2023-03-02 03:23:00 Olivia Garcia [facility] URINALYSIS 2023-03-02 03:23:00 Olivia Garcia [facility] CONSENT/REFUSAL FOR DIAGNOSIS AND TREATMENT 2023-03-02 00:22:44 Doctor Unassigned, [place] [facility] CONSENT/REFUSAL FOR DIAGNOSIS AND TREATMENT 2023-02-18 03:44:46 Doctor Unassigned, [place] [facility] LIPASE 2023-02-17 09:28:00 [facility] ([id number]) (ALB,T.PRO,BILI T,BU/BC,ALT,AST,ALK PHOS) 2023-02-17 09:28:[address] [facility] BASIC METABOLIC PANEL (NA, K, CL, CO2, GLUCOSE, BUN, CREATININE, CA) 2023-02-17 09:28:00 [facility]FF 2023-02-17 09:28:00 Jesús Montero [facility] LIPASE 2023-02-16 18:24:[address] [facility] HEPATIC FUNCTION PANEL ([id number]) (ALB,T.PRO,BILI T,BU/BC,ALT,AST,ALK PHOS) 2023-02-16 18:24:00 [facility]IC METABOLIC PANEL (NA, K, CL, CO2, GLUCOSE, BUN, CREATININE, CA) 2023-02-16 18:24:[address] [facility] CBC WITH DIFF 2023-02-16 18:23:00 Jesús Montero [facility] CT ABDOMEN PELVIS W CONTRAST 2023-02-15 23:29:00 Leeanne Wise [facility] LIPASE 2023-02-15 21:45:00 Leeanne Wise [facility] COMP. METABOLIC PANEL ([id number]) 2023-02-15 21:45:00 Leeanne Wise [facility] CBC WITH DIFF 2023-02-15 21:45:00 Leeanne Wise [facility] D-DIMER 2023-02-15 19:55:00 Leeanne Wise [facility] URINALYSIS 2023-02-15 19:50:00 Leeanne Wise [facility] RAPID INFLUENZA A/B 2023-02-15 19:50:00 Leeanne Wise [facility] COVID-19 (ID NOW RAPID TESTING) 2023-02-15 19:50:00 Leeanne Wise [facility] XR CHEST 1 VW 2023-02-15 19:38:00 Leeanne Wise [facility] ASSIGNMENT OF BENEFITS 2023-02-15 19:26:58 Docto r Unassigned, [place] [facility] HB ECG ROUTINE & RHYTHM STRIP 2023-02-15 19:07:40 Leeanne Wise [facility] NOTICE OF PRIVACY PRACTICES 2023-02-15 18:24:07 Doctor Unassigned, [place] [facility] CONSENT/REFUSAL FOR DIAGNOSIS AND TREATMENT 2023-02-15 18:23:04 Doctor Unassigned, [place] [facility] TROPONIN I 2022-01-10 00:32:00 Melida Longoria [facility] TROPONIN I 2022-01-09 22:17:00 Melida Longoria [facility] BASIC METABOLIC PANEL (NA, K, CL, CO2, GLUCOSE, BUN, CREATININE, CA) 2022-01-09 22:17:00 Melida Longoria [facility] CBC WITH DIFF 2022-01-09 22:17:00 Melida Long[facility] N-TERMINAL PRO-BNP 2022-01-09 22:17:00 Melida Longoria [facility] XR CHEST 1 2022-01-09 22:11:00 Melida Longoria [facility] CONSENT/REFUSAL FOR DIAGNOSIS AND TREATMENT 2022-01-09 21:34:15 Doctor Unassigned, [place] [facility] TROPONIN I 2021-12-14 05:39:00 Wil Mcqueen [facility] XR CHEST 1 2021-12-14 04:39:00 Wil Mcqueen [facility] POCT TEST 2021-12-14 04:20:00 Wil Mcqueen [facility] URINALYSIS 2021-12-14 03:57:00 [facility] LIPASE 2021-12-14 03:43:00 Wil Mcque[facility] TROPONIN I 2021-12-14 03:43:00 Wil Mcqueen [facility] FREE T4 2021-12-14 03:43:00 Wil Mcqueen [facility] THYROID STIMULATING HORMONE 2021-12-14 03:43:00 Wil Mcqueen [facility] COMP. METABOLIC PANEL ([id number]) 2021-12-14 03:43:00 Wil Mcqueen [facility] CBC WITH DIFF 2021-12-14 03:43:00 [facility] 2021-12-14 03:43:00 [facility] CONSENT/REFUSAL FOR DIAGNOSIS AND TREATMENT 2021-12-14 02:58:21 Doctor Unassigned, [place] [facility] TROPONIN I 2021-11-12 03:04:00 Dee Wang [facility] POCT TEST 2021-11-12 02:56:00 Tra Wang [facility] URINE DRUG (IMMUNOASSAY) - COMPREHENSIVE DRUG SCREEN 2021-11-12 02:30:00 Dee Wang [facility] URINALYSIS 2021-11-12 02:30:00 Dee Wang [facility] XR CHEST 2 VW 2021-11-12 01:45:03 Dee Wang [facility] LIPASE 2021-11-12 01:34:00 Dee Wang [facility] TROPONIN I 2021-11-12 01:34:00 Dee Wang [facility] COMP. METABOLIC PANEL ([id number]) 2021-11-12 01:34:00 Dee Wang [facility] CBC WITH DIFF 2021-11-12 01:34:00 Dee Wang [facility] N-TERMINAL PRO-BNP 2021-11-12 01:34:00 Mckinley Wang [facility] CONSENT/REFUSAL FOR DIAGNOSIS AND TREATMENT 2021-11-12 00:36:34 Doctor Unassigned, [place] [facility] CT ABDOMEN PELVIS W CONTRAST 2021-09-12 02:49:43 Dee Wang [facility] COVID-19 (ID NOW RAPID TESTING) 2021-09-12 02:23:00 Dee Wang [facility] POCT TEST 2021-09-12 02:21:00 Tra Wang [facility] POCT TEST 2021-09-12 01:45:00 Olivia Garcia [facility] URINALYSIS 2021-09-12 01:43:00 Olivia Garcia [facility] LIPASE 2021-09-12 01:40:00 Olivia Garcia [facility] COMP. METABOLIC PANEL ([id number]) 2021-09-12 01:40:00 Olivia Garcia [facility] CBC WITH DIFF 2021-09-12 01:40:00 Olivia Garcia [facility] CONSENT/REFUSAL FOR DIAGNOSIS AND TREATMENT 2021-09-12 01:26:55 Doctor Unassigned, [place] [facility] XR LUMBAR SPINE 1 VW 2021-08-15 07:03:00 Angeles Garcia i [facility] URINALYSIS 2021-08-15 06:35:00 Olivia Garcia [facility] POCT TEST 2021-08-15 06:35:00 Olivia Garcia [facility] NOTICE OF PRIVACY PRACTICES 2021-08-15 06:01:56 Doctor Unassigned, [place] [facility] CONSENT/REFUSAL FOR DIAGNOSIS AND TREATMENT 2021-08-15 05:25:54 Doctor Unassigned, [place] [facility] TROPONIN I 2021-05-28 07:50:00 Cem Choi [facility] D-DIMER 2021-05-28 07:05:00 Cem Choi [facility] XR CHEST 2 VW 2021-05-28 05:46:00 Cem Choi [facility] POCT TEST 2021-05-28 05:32:00 Cem Choi [facility] LIPASE 2021-05-28 05:29:00 Cem Choi [facility] TROPONIN I 2021-05-28 05:29:00 Cem Choi [facility] COMP. METABOLIC PANEL ([id number]) 2021-05-28 05:29[facility]00 [facility] 2021-05-28 05:29:00 Cem Choi [facility] N-TERMINAL PRO-BNP 2021-05-28 05:29:00 Cem Choi [facility] COVID-19 (ID NOW RAPID TESTING) 2021-05-28 05:29:00 Anthony [facility] TROPONIN I 2021-04-08 10:01:00 Brittni Page [facility] BASIC METABOLIC PANEL (NA, K, CL, CO2, GLUCOSE, BUN, CREATININE, CA) 2021-04-08 10:01:00 Brittni Page Rocio [facility] CBC WITH DIFF 2021-04-08 10:01:00 Brittni Page [facility] TROPONIN I 2021-04-08 04:12:00 Brittni Page [facility] XR CHEST 1 VW 2021-04-07 22:33:33 Roberto Richards [facility] LIPASE 2021-04-07 21:52:00 Roberto Richards [facility] MAGNESIUM 2021-04-07 21:52:00 Brittni Page [facility] TROPONIN I 2021-04-07 21:52:00 Roberto Richards [facility] THYROID STIMULATING HORMONE 2021-04-07 21:52:00 Brittni Page [facility] COMP. METABOLIC PANEL ([id number]) 2021-04-07 21:52:00 Roberto Richards [facility] LIPID PANEL ([id number])(TOTAL CHOLESTEROL, TRIGLYCERIDES, HDL) 2021-04-07 21:52:00 Brittni Page [facility] CBC WITH DIFF 2021-04-07 21:52:00 Roberto Richards [facility] GLYCOSYLATED HEMOGLOBIN (A1C) 2021-04-07 21:52:00 Brittni Page [facility] PROTHROMBIN TIME / INR 2021-04-07 21:52:00 Jalen Richards [facility] ACTIVATED PARTIAL THRMPLAS MARCIO 2021-04-07 21:52:00 Roberto Richards [facility] N-TERMINAL PRO-BNP 2021-04-07 21:52:00 Roberto Richards [facility] COVID-19 (ID NOW RAPID TESTING) 2021-04-07 21:51:00 Roberto Richards [facility] HB ECG ROUTINE & RHYTHM STRIP 2021-04-07 21:38:41 [facility] CONSENT/REFUSAL FOR DIAGNOSIS AND TREATMENT 2021-04-07 21:17:47 Doctor Unassigned, [place] [facility] CT ABDOMEN PELVIS WO CONTRAST 2021-01-12 08:10:17 Singer [facility] POCT TEST 2021-01-12 08:02:00 Jaquan Narvaez [facility] URINALYSIS 2021-01-12 07:58:00 Narayan Narvaez [facility] COMP. METABOLIC PANEL ([id number]) 2021-01-12 07:56:00 Narayan Narvaez [facility] CBC WITH DIFF 2021-01-12 07:56:00 Singer [facility] TROPONIN I 2020-12-11 00:47:00 Bal Hassan [facility] XR CHEST 1 VW 2020-12-10 22:40:57 Bal Hassan [facility] POCT TEST 2020-12-10 22:32:00 Suzanna Hassan [facility] URINALYSIS 2020-12-10 22:30:00 [facility]-10 [facility]24[facility] 2020-12-10 22:24:00 [facility] HEPAT[facility] FUNCTION PANEL ([id number]) (ALB,T.PRO,BILI T,BU/BC,ALT,AST,ALK PHOS) 2020-12-10 22:24:00 [facility] (NA, K, CL, CO2, GLUCOSE, BUN, CREATININE, CA) 2020-12-10 22:24:00 Mo [facility] CBC WITH DIFF 2020-12-10 22:24:00 Bal Hassan [facility] D-DIMER 2020-12-10 22:24:00 [facility] N-TERMINAL PRO-BNP 2020-12-10 22:24:00 Mirtha Hassan [facility] POCT TEST 2020-12-04 21:18:00 [facility] URINALYSIS 2020-12-04 21:17:00 Tremaine Becerra [facility] LIPASE 2020-12-04 20:20:00 [facility] TROPONIN I 2020-12-04 20:20:00 [facility] HEPATIC FUNCTION PANEL (73386) (ALB,T.PRO,BILI T,BU/BC,ALT,AST,ALK PHOS) 2020-12-04 20:20:00 [facility] BASIC METABOLIC PANEL (NA, K, CL, CO2, GLUCOSE, BUN, CREATININE, CA) 2020-12-04 20:20:00 [facility] CBC WITH DIFF 2020-12-04 20:20:00 Tremaine Becerra [facility] XR CHEST 1 VW 2020-12-04 20:16:54 Tremaine Becerra [facility] XR ANKLE 3+ VW LEFT 2020-12-04 20:16:54 Tremaine Becerra [facility] CONSENT/REFUSAL FOR DIAGNOSIS AND TREATMENT 2020-12-04 19:43:45 Doctor Unassigned, [place] [facility] XR CHEST 1 VW 2020-11-04 02:24:02 Olivia Garcia [facility] URINE DRUG (IMMUNOASSAY) - 4 ER PANEL 2020-11-04 02:19:00 Olivia Garcia [facility] URINALYSIS 2020-11-04 02:19:00 Olivia Garcia [facility] LIPASE 2020-11-04 02:16:00 [facility] 2020-11-04 02:16:00 Jose Akrachelle [facility] COMP. METABOLIC PANEL (47832) 2020-11-04 02:16:00 Olivia Garcia [facility] CBC WITH DIFF 2020-11-04 02:16:00 Olivia Garcia [facility] PROTHROMBIN TIME / INR 2020-11-04 02:16:00 Lucia Garcia [facility] ACTIVATED PARTIAL THRMPLAS MARCIO 2020-11-04 02:16:00 Olivia Garcia [facility] CONSENT/REFUSAL FOR DIAGNOSIS AND TREATMENT 2020-11-04 01:11:16 Doctor Unassigned, [place] [facility] XR CHEST 1 VW 2020-09-17 17:32:21 Leeanne Wise [facility] RAPID STREP SCREEN FOR GROUP A 2020-09-17 16:31:00 Leeanne Wise [facility] COVID-19 (ID NOW RAPID TESTING) 2020-09-17 16:31:00 Leeanne Wise [facility] NOTICE OF PRIVACY PRACTICES 2020-09-17 15:47:38 Doctor Unassigned, [place] [facility] CONSENT/REFUSAL FOR DIAGNOSIS AND TREATMENT 2020-09-17 15:47:07 Doctor Unassigned, [place] [facility] XR FOREARM 2 VW LEFT 2020-09-07 06:59:53 Saleem Edward [facility] XR HAND 3+ VW LEFT 2020-09-07 06:59:53 Saleem Edward [facility] NOTICE OF PRIVACY PRACTICES 2020-09-07 06:06:09 Doctor Unassigned, [place] [facility] CONSENT/REFUSAL FOR DIAGNOSIS AND TREATMENT 2020-09-07 06:03:10 Doctor Unassigned, [place] [facility] CT ABDOMEN PELVIS W CONTRAST 2020-08-28 09:16:08 Olivia Garcia [facility] POCT TEST 2020-08-28 08:45:00 Olivia Garcia [facility] URINALYSIS 2020-08-28 08:43:00 Olivia Garcia [facility] LIPASE 2020-08-28 08:09:00 Olivia Garcia [facility] COMP. METABOLIC PANEL ([id number]) 2020-08-28 08:09:00 Olivia Garcia [facility] CBC WITH DIFF 2020-08-28 08:09:00 [facility] 2020-08-14 18:10:03 [facility] LIPASE 2020-08-14 17:58:00 Best Taylor [facility] TROPONIN I 2020-08-14 17:58:00 [facility] COMP. METABOLIC PANEL ([id number]) 2020-08-14 17:58:00 Best Taylor [facility] CBC WITH DIFF 2020-08-14 17:58:00 [facility] URINALYSIS 2020-08-14 17:58:00 [facility] LACTIC ACID WHOLE BLOOD 2020-08-14 17:58:00 Sophie Taylor [facility] ADC / LCC - DRUG SCREEN TRIAGE 2020-08-14 17:58:00 Best Tay[facility] CONSENT/REFUSAL FOR DIAGNOSIS AND TREATMENT 2020-08-14 17:33:16 Doctor Unassigned, [place] [facility] CT ABDOMEN PELVIS WO CONTRAST 2020-08-11 04:11:07 Best Taylor [facility] XR CHEST 1 VW 2020-08-11 03:56:48 [facility] POCT TEST 2020-08-11 03:10:00 Best Taylor [facility] BLOOD CULTURE SCREEN 2020-08-11 02:01:00 Best Taylor [facility] BLOOD CULTURE SCREEN 2020-08-11 01:45:00 Best Taylor [facility] LIPASE 2020-08-11 01:45:00 Best Taylor [facility] TROPONIN I 2020-08-11 01:45:00 Best Taylor [facility] HEPATIC FUNCTION PANEL ([id number]) (ALB,T.PRO,BILI T,BU/BC,ALT,AST,ALK PHOS) 2020-08-11 01:45:00 Best Taylor [facility] BASIC METABOLIC PANEL (NA, K, CL, CO2, GLUCOSE, BUN, CREATININE, CA) 2020-08-11 01:45:00 Best Taylor [facility] CBC WITH DIFF 2020-08-11 01:45:00 [facility] URINALYSIS 2020-08-11 01:45:00 [facility] LACTIC ACID WHOLE BLOOD 2020-08-11 01:45:00 Sophie Taylor [facility] COVID-19 (ID NOW RAPID TESTING) 2020-08-11 01:45:00 Best Taylor [facility] CONSENT/REFUSAL FOR DIAGNOSIS AND TREATMENT 2020-08-11 00:12:54 Doctor Unassigned, [place] [facility] XR FOREARM 2 VW LEFT 2020-08-07 14:03:06 Unique Richards [facility] COVID-19 (ID NOW RAPID TESTING) 2020-08-07 13:35:00 Roberto Richards [facility] NOTICE OF PRIVACY PRACTICES 2020-08-07 13:13:25 Doctor Unassigned, [place] [facility] CONSENT/REFUSAL FOR DIAGNOSIS AND TREATMENT 2020-08-07 13:11:06 Doctor Unassigned, [place] [facility] CONSENT/REFUSAL FOR DIAGNOSIS AND TREATMENT 2020-08-07 13:10:57 Doctor Unassigned, [place] [facility] TROPONIN I 2020-07-01 02:03:00 Abdias Robertson [facility] POCT TEST 2020-07-01 00:51:00 Jessica [facility] URINALYSIS 2020-07-01 00:48:00 Jessica [facility] CBC WITH DIFF 2020-07-01 00:12:00 Abdias [facility] EXTRA TUBE LT. BLUE 2020-07-01 00:12:00 Jessica [facility] LIPASE 2020-07-01 00:09:00 Jsesica [facility] TROPONIN I 2020-07-01 00:09:00 Jessica [facility] BASIC METABOLIC PANEL (NA, K, CL, CO2, GLUCOSE, BUN, CREATININE, CA) 2020-07-01 00:09:00 Abdias Robertson [facility] ADC,CLC OR LCC ONLY - INFLUENZA A & B DIRECT ANTIGEN 2020-07-01 00:09:00 Jessica [facility] N-TERMINAL PRO-BNP 2020-07-01 00:09:00 Abdias Robertson [facility] XR CHEST 1 VW 2020-07-01 00:07:07 Abdias [facility] NOTICE OF PRIVACY PRACTICES 2020-06-30 23:27:46 Doctor Unassigned, [place] [facility] CT CERVICAL SPINE WO CONTRAST 2020-06-28 23:12:00 Narayan Narvaez [facility] CONSENT/REFUSAL FOR DIAGNOSIS AND TREATMENT 2020-06-28 21:52:44 Doctor Unassigned, [place] [facility] POCT TEST 2020-06-13 01:50:00 Leeanne Wise [facility] XR CHEST 1 VW 2020-06-13 01:18:17 Leeanne Wise [facility] URINALYSIS 2020-06-13 00:34:00 Leeanne Wise [facility] COVID-19 (ID NOW RAPID TESTING) 2020-06-13 00:34:00 Leeanne Wise [facility] LIPASE 2020-06-13 00:33:00 Leeanne Wise [facility] TROPONIN I 2020-06-13 00:33:00 Leeanne Wise [facility] HEPATIC FUNCTION PANEL ([id number]) (ALB,T.PRO,BILI T,BU/BC,ALT,AST,ALK PHOS) 2020-06-13 00:33:00 Leeanne Wise [facility] BASIC METABOLIC PANEL (NA, K, CL, CO2, GLUCOSE, BUN, CREATININE, CA) 2020-06-13 00:33:00 Leeanne Wise [facility] CBC WITH DIFF 2020-06-13 00:33:00 Leeanne Wise [facility] D-DIMER 2020-06-13 00:33:00 Leeanne Wise [facility] CONSENT/REFUSAL FOR DIAGNOSIS AND TREATMENT 2020-06-12 23:27:48 Doctor Unassigned, [place] [facility] COVID-19 (ID NOW RAPID TESTING) 2020-05-16 23:50:00 Bushra Rios [facility] LIPASE 2020-05-16 23:21:00 [facility] FUNCTION PANEL ([id number]) (ALB,T.PRO,BILI T,BU/BC,ALT,AST,ALK PHOS) 2020-05-16 23:21:00 Bushra Rios [facility] BASIC METABOLIC PANEL (NA, K, CL, CO2, GLUCOSE, BUN, CREATININE, CA) 2020-05-16 23:21:00 Bushra Rios [facility] CBC WITH DIFF 2020-05-16 23:21:00 Bushra Rios [facility] ACETAMINOPHEN 2020-05-15 07:42:00 Roberto Richards [facility] CT ABDOMEN PELVIS W CONTRAST 2020-05-15 06:56:53 Roberto Richards [facility] CT HEAD WO CONTRAST 2020-05-15 06:56:27 Alberta Richards [facility] POCT TEST 2020-05-15 05:53:00 Alberta Richards [facility] LIPASE 2020-05-15 05:52:00 [facility] HEPATIC FUNCTION PANEL ([id number]) (ALB,T.PRO,BILI T,BU/BC,ALT,AST,ALK PHOS) 2020-05-15 05:52:00 Roberto Richards [facility] BASIC METABOLIC PANEL (NA, K, CL, CO2, GLUCOSE, BUN, CREATININE, CA) 2020-05-15 05:52:00 Roberto Richards [facility] ETHANOL 2020-05-15 05:52:00 [facility] CBC WITH DIFF 2020-05-15 05:52:00 Roberto Richards [facility] PROTHROMBIN TIME / INR 2020-05-15 05:52:00 Jalen Richards [facility] ACTIVATED PARTIAL THRMPLAS MARCIO 2020-05-15 05:52:00 Roberto Richards [facility] URINALYSIS 2020-05-15 05:52:00 Roberto [facility] ADC / LCC - DRUG SCREEN TRIAGE 2020-05-15 05:52:00 Roberto Richards [facility] NOTICE OF PRIVACY PRACTICES 2020-05-15 05:12:38 Doctor Unassigned, [place] [facility] CONSENT/REFUSAL FOR DIAGNOSIS AND TREATMENT 2020-05-15 05:12:26 Doctor Unassigned, [place] [facility] Encounters Start Date/Time End Date/Time Encounter Type Admission Type Attending [facility] Care Facility Care Department Encounter ID Source 2025-02-15 10:00:00 2025-02-15 10:00:00 Outpatient CHRISTINA PAGE [id number] [facility] 2025-01-22 10:20:00 2025-01-22 10:20:00 Outpatient CYNTHIA ROMEO KELLEE [id number] [facility] 2024-12-02 13:30:00 2024-12-02 13:30:00 Outpatient JOANNE MONTES KELLEE [id number] [facility] 2024-12-02 09:30:00 2024-12-02 09:30:00 Outpatient CATHY STRICKLAND KELLEE DORMAN [id number] [facility] 2024-11-18 13:15:00 2024-11-18 13:15:00 Outpatient TYLER MAN KELLEE DORMAN [id number] [facility] 2024-11-10 19:56:00 2024-11-11 01:04:00 Emergency X OLIVIA GARCIA WAKILI [facility] [id number] [facility] 2024-11-10 19:56:00 2024-11-11 01:04:00 Emergency Olivia Garcia [facility] ..840.114 350.1.13.10 4.2.7.2.686 [id number] [facility] 2024-11-10 13:30:00 2024-11-10 13:30:00 Outpatient JOANNE MONTES KELLEE DORMAN [id number] [facility] 2024-11-10 13:30:00 2024-11-10 13:30:00 Outpatient JOANNE MONTES KELLEE KELLEE [id number] [facility] 2024-11-05 00:00:00 2024-11-05 09:33:29 Transition of Care Piper Mercedes Antoinette [address] ..840.114 350.1.13.10 4.2.7.2.686 [id number] [facility] 2024-10-31 21:29:00 2024-11-04 15:00:00 Inpatient X CRIS HEMUJDD AGRAWAL HEMJUDD AGRAWAL [facility] [id number] [facility] 2024-10-31 21:29:00 2024-11-04 15:00:00 Hospital Encounter Olivia Garcia Jelani Al Hemyari, Lidia Alvarado [facility] 1.2.840.114 350.1.13.10 4.2.7.2.686 [id number] [facility] 2024-11-03 18:20:00 2024-11-03 19:20:00 Surgery Dane Jurado Dmitri [facility] 1.2.840.114 350.1.13.10 4.2.7.2.686 [id number] [facility] 2024-11-02 00:00:00 2024-11-02 00:00:00 Outpatient KELLEE DORMAN [id number] [facility] 2024-11-02 00:00:00 2024-11-02 00:00:00 Outpatient KELLEE DORMAN [id number] [facility] 2024-10-28 14:15:00 2024-10-28 14:15:00 Outpatient TYLER MAN [id number] [facility] 2024-10-26 11:30:00 2024-10-26 11:30:00 Outpatient FLORINDA REYES [id number] [facility] 2024-10-23 20:18:00 2024-10-23 23:54:00 Emergency X LEVAR BARKER [facility] [id number] [facility] 2024-10-23 20:18:00 2024-10-23 23:54:00 Emergency Levar Barker [facility] 1.2.840.114 350.1.13.10 4.2.7.2.686 [id number] [facility] 2024-10-23 10:30:00 2024-10-23 10:30:00 Outpatient JOANNE MONTESSEY KELLEE [id number] [facility] 2024-10-19 00:00:00 2024-10-19 00:00:00 Outpatient JOANNE MONTES KELLEE DORMAN [id number] [facility] 2024-10-14 00:00:00 2024-10-14 00:00:00 Outpatient KELLEE DORMAN [id number] [facility]ellee beck 2024-10-12 22:30:00 2024-10-13 02:45:00 Emergency X JOSE OLIVIA BURTON [facility] ERT [id number] [facility] 2024-10-12 22:30:00 2024-10-13 02:45:00 Emergency Frederick Garciaamanda Shankar [facility] 1.2.840.114 350.1.13.10 4.2.7.2.686 [id number] [facility] 2024-09-23 13:30:00 2024-09-23 13:30:00 Outpatient GISELLE OSORIO [id number] [facility] 2024-09-23 00:00:00 2024-09-23 00:00:00 Outpatient KELLEE DORMAN [id number] [facility] 2024-09-17 00:00:00 2024-09-17 00:00:00 Outpatient MD KELLEE CHOI [id number] [facility] 2024-09-15 11:15:00 2024-09-15 11:15:00 Outpatient KELLEE DORMAN [id number] [facility] 2024-09-15 10:45:00 2024-09-15 10:45:00 Outpatient KELLEE DORMAN [id number] [facility] 2024-09-15 10:15:00 2024-09-15 10:15:00 Outpatient KELLEE DORMAN [id number] [facility] 2024-09-15 07:30:00 2024-09-15 07:30:00 Outpatient KELLEE DORMAN [id number] [facility] 2024-09-15 00:00:00 2024-09-15 00:00:00 Outpatient GISELLE OSORIO KELLEE DORMAN [id number] [facility] 2024-09-06 00:00:00 2024-09-06 00:00:00 Outpatient JOANNE MONTES KELLEE DORMAN [id number] [facility] 2024-09-01 00:00:00 2024-09-01 00:00:00 Outpatient JOANNE MONTES KELLEE DORMAN [id number] [facility] 2024-08-27 00:00:00 2024-08-27 00:00:00 Outpatient SMITHCONRADO KELLEE DORMAN [id number] [facility] 2024-08-20 16:45:00 2024-08-20 16:45:00 Outpatient SHIJÚNIOR HAYWARD KELLEE DORMAN [id number] [facility] 2024-08-18 10:00:00 2024-08-18 10:00:00 Outpatient JOANEN MONTES KELLEE DORMAN [id number] [facility] 2024-08-05 15:30:00 2024-08-05 15:30:00 Outpatient SMITHCONRADO KELLEE DORMAN [id number] [facility] 2024-08-03 00:00:00 2024-08-03 00:00:00 Outpatient JOANNE MONTES KELLEE DORMAN [id number] [facility] 2024-07-18 22:48:00 2024-07-19 01:24:00 Emergency X Saleem EDWARD K [facility] ERT [id number] [facility] 2024-07-18 22:48:00 2024-07-19 01:24:00 Emergency Saleem Edward [facility] 1.2.840.114 350.1.13.10 4.2.7.2.686 [id number] [facility] 2024-07-15 00:00:00 2024-07-15 00:00:00 Outpatient MARLINLJOANNE KELLEE DORMAN [id number] [facility] 2024-07-10 00:00:00 2024-07-10 00:00:00 Outpatient JYOTIJOANNE KELLEE DORMAN [id number] [facility] 2024-07-09 00:00:00 2024-07-09 00:00:00 Outpatient RADIOLOGY, DEPT KELLEE DORMAN [id number] [facility] 2024-07-09 00:00:00 2024-07-09 00:00:00 Outpatient RADIOLOGY, DEPT KELLEE DORMAN [id number] [facility] 2024-07-07 00:00:00 2024-07-07 00:00:00 Outpatient MD KELLEE CHOI [id number] [facility] 2024-07-06 07:00:00 2024-07-06 07:00:00 Outpatient KELLEE DORMAN [id number] [facility] 2024-07-06 00:00:00 2024-07-06 00:00:00 Outpatient GISELLE OSORIO [id number] [facility] 2024-07-03 19:56:00 2024-07-04 01:32:00 Emergency X VINCENT, SHINTA VINCENT, SHINTA [facility] ERT [id number] [facility] 2024-07-03 19:56:00 2024-07-04 01:32:00 Emergency Vincent, Shinta [facility] 1.2.840.114 350.1.13.10 4.2.7.2.686 [id number] [facility] 2024-06-21 02:04:00 2024-06-21 02:59:00 Emergency X VINCENT, SHINTA VINCENT, SHINTA [facility] ERT [id number] [facility] 2024-06-21 02:04:00 2024-06-21 02:59:00 Emergency Vincent, Shinta [facility] 1.2.840.114 350.1.13.10 4.2.7.2.686 [id number] [facility] 2024-06-20 00:00:00 2024-06-20 00:00:00 Outpatient JYOTI JOANNE DORMAN [id number] [facility] 2024-06-18 00:00:00 2024-06-18 00:00:00 Outpatient GISELLE OSORIO [id number] [facility] 2024-06-17 15:30:00 2024-06-17 15:30:00 Outpatient KELLEE DORMAN [id number] [facility] 2024-06-14 21:28:00 2024-06-15 00:28:00 Emergency X SANDY GARCIA SHINTA [facility] ERT [id number] [facility] 2024-06-14 21:28:00 2024-06-15 00:28:00 Emergency Sandy Garcia [facility] 1.2.840.114 350.1.13.10 4.2.7.2.686 [id number] [facility] 2024-06-06 21:56:00 2024-06-07 02:40:00 Emergency X OLIVIA GARCIA WAKILI [facility] ERT [id number] [facility] 2024-06-06 21:56:00 2024-06-07 02:40:00 Emergency Olivia Garcia [facility] 1.2.840.114 350.1.13.10 4.2.7.2.686 [id number] [facility] 2024-06-02 00:00:00 2024-06-02 00:00:00 Outpatient JYOTI JOANNE DORMAN [id number] [facility] 2024-05-28 13:00:00 2024-05-28 13:00:00 Outpatient [facility]ELLE OSORIO [id number] [facility] 2024-05-20 00:00:00 2024-05-20 00:00:00 Outpatient JOANNE MONTES [id number] [facility] 2024-05-19 11:44:00 2024-05-19 13:35:00 Emergency X ANNALISE WRIGHT [facility] ERT [id number] [facility] 2024-05-19 11:44:00 2024-05-19 13:35:00 Emergency Annalise Wright [facility] 1.2.840.114 350.1.13.10 4.2.7.2.686 [id number] [facility] 2024-05-18 11:15:00 2024-05-18 11:15:00 Outpatient LEYLA DORMAN [id number] [facility] 2024-05-18 10:30:00 2024-05-18 10:30:00 Outpatient JOANNE MONTES [id number] [facility] 2024-05-17 18:30:00 2024-05-17 22:19:00 Emergency Alesha Roy [facility] 1.2.840.114 350.1.13.10 4.2.7.2.686 [id number] [facility] 2024-05-13 18:04:00 2024-05-13 20:42:00 Emergency ER ARELIS KERN [facility] [id number] [facility] 2024-05-12 00:00:00 2024-05-12 00:00:00 Outpatient JOANNE MONTES [id number] [facility] 2024-05-07 18:47:00 2024-05-07 21:36:00 Emergency Saleem Edward [facility] 1.2.840.114 350.1.13.10 4.2.7.2.686 [id number] [facility] 2024-04-22 09:15:00 2024-04-22 09:15:00 Outpatient FARTUN GILLESPIE [id number] [facility] 2024-04-15 10:30:00 2024-04-15 10:30:00 Outpatient JYOTI, JOANNE DORMAN [id number] [facility] 2024-04-12 00:00:00 2024-04-12 00:00:00 Outpatient MARLINKhris JOANNE DORMAN [id number] [facility] 2024-04-10 16:20:00 2024-04-10 18:53:00 Emergency ER TAVARES MG JR [facility] [id number] [facility] 2024-04-10 16:20:00 2024-04-10 18:53:00 Departed Emergency Room [facility] [id number] 85 [facility] 2024-04-08 17:37:00 2024-04-08 20:38:00 Emergency Leigh Rojo [facility] 1.2.840.114 350.1.13.10 4.2.7.2.686 [id number] [facility] 2024-04-08 00:00:00 2024-04-08 00:00:00 Outpatient JYOTI JOANNE DORMAN [id number] [facility] 2024-03-12 00:00:00 2024-03-12 00:00:00 Outpatient JYOTI JOANNE DORMAN [id number] [facility] 2024-03-06 11:00:00 2024-03-06 11:00:00 Outpatient JYOTI [facility]NE DORMAN [id number] [facility] 2024-02-06 11:00:00 2024-02-06 11:00:00 Outpatient GISELLE OSORIO [id number] [facility] 2024-02-06 10:40:00 2024-02-06 10:40:00 Outpatient KELLEE DORMAN [id number] [facility] 2024-02-06 00:00:00 2024-02-06 00:00:00 Outpatient JOANNE MONTES [id number] [facility] 2024-02-05 00:00:00 2024-02-05 00:00:00 Outpatient HUNDL, JOANNE DORMAN [id number] [facility] 2024-01-14 09:30:00 2024-01-14 09:30:00 Outpatient HUNDL, JOANNE DORMAN [id number] [facility] 2024-01-09 00:00:00 2024-01-09 00:00:00 Outpatient HUNDL, JOANNE DORMAN [id number] [facility] 2024-01-06 00:00:00 2024-01-06 00:00:00 Outpatient HUNDL, [facility]OR[facility] [id number] [facility] 2024-01-03 00:00:00 2024-01-03 00:00:00 Outpatient HUNDL, JOANNE DORMAN [id number] [facility] 2024-01-02 14:00:00 2024-01-02 14:00:00 Outpatient HUNDL, [facility] DORMAN [id number] [facility] 2023-12-13 09:30:00 2023-12-13 09:30:00 Outpatient HUNDL, JOANNE DORMAN [id number] [facility] 2023-12-09 00:00:00 2023-12-09 00:00:00 Outpatient HUNDL, JOANNE DORMAN [id number] [facility] 2023-12-05 00:00:00 2023-12-05 00:00:00 Outpatient HUNDL, JOANNE DORMAN [id number] [facility] 2023-12-03 11:45:00 2023-12-03 11:45:00 Outpatient LAB90 KELLEE DORMAN [id number] [facility] 2023-12-03 11:00:00 2023-12-03 11:00:00 Outpatient HUNDL, JOANNE DORMAN [id number] [facility] 2023-11-26 00:00:00 2023-11-26 00:00:00 Outpatient HUNDL, JOANNE DORMAN [id number] [facility] 2023-10-31 00:00:00 2023-10-31 00:00:00 Outpatient COSMO DORMAN [id number] [facility] 2023-10-31 00:00:00 2023-10-31 00:00:00 Outpatient COSMO DORMAN [id number] [facility] 2023-10-29 14:15:00 2023-10-29 14:15:00 Outpatient LAB90 KELLEE DORMAN [id number] [facility]ellee [facility] 2023-10-29 13:30:00 2023-10-29 13:30:00 Outpatient JOANNE MONTES [id number] [facility]ellee [facility] 2023-10-10 21:31:00 2023-10-11 00:43:00 Emergency X SUMAYARATNASONIA HUGHESRACHELLE [facility] ERT [id number] [facility] 2023-10-10 21:31:00 2023-10-11 00:43:00 Emergency Frederick Garciaamanda Shankar [facility] 1.2.840.114 350.1.13.10 4.2.7.2.686 [id number] [facility] 2023-08-31 18:02:00 2023-08-31 22:40:00 emergency [facility] [id number] 2023-08-31 18:02:00 2023-08-31 22:40:00 Emergency ER SHERIDAN MCMANUS [facility] [id number] [facility] 2023-07-01 19:50:00 2023-07-01 22:59:00 Emergency X MAURICE ROBERTO [facility] ERT [id number] [facility] 2023-07-01 19:50:00 2023-07-01 22:59:00 Emergency Roberto Richards [facility] 1.2.840.114 350.1.13.10 4.2.7.2.686 [id number] [facility] 2023-06-04 23:37:00 2023-06-06 13:30:00 observatio n encounter [facility] [id number] [facility] [id number] 2023-06-04 23:37:00 2023-06-06 13:30:00 Inpatient ER SHAN BUSCH [facility] [id number] [facility] 2023-05-11 01:16:00 2023-05-13 17:04:00 observatio n encounter [facility] [id number] [facility] [id number] 2023-05-11 01:16:00 2023-05-13 17:04:00 Inpatient ER RIDDHI MYLES [facility] [id number] [facility] 2023-05-10 21:48:00 2023-05-10 21:48:00 Emergency ER AN IRIZARRY [facility] [id number] [facility] 2023-05-09 17:40:00 2023-05-09 20:30:00 Emergency X NARAYAN NARVAEZ [facility] ERT [id number] [facility] 2023-05-09 17:40:00 2023-05-09 20:30:00 Emergency Narayan Narvaez [facility] 1.2.840.114 350.1.13.10 4.2.7.2.686 [id number] [facility] 2023-05-05 21:31:00 2023-05-06 03:15:00 Emergency ER SHERIDAN MCMANUS [facility] [id number] [facility] 2023-05-05 21:31:00 2023-05-06 03:15:00 emergency [facility] [id number] 2023-04-30 17:18:00 2023-04-30 21:20:00 Emergency X NARAYAN NARVAEZ [facility] ERT [id number] [facility] 2023-04-30 17:18:00 2023-04-30 21:20:00 Emergency Narayan Narvaez [facility] 1.2.840.114 350.1.13.10 4.2.7.2.686 [id number] [facility] 2023-04-16 20:40:00 2023-04-16 23:10:00 Emergency X ROBERTO RICHARDS [facility] ERT [id number] [facility] 2023-04-16 20:40:00 2023-04-16 23:10:00 Emergency Roberto Richards [facility] 1.2.840.114 350.1.13.10 4.2.7.2.686 [id number] [facility] 2023-04-08 17:28:00 2023-04-08 21:20:00 Emergency X Saleem EDWARD [facility] ERT [id number] [facility] 2023-04-08 17:28:00 2023-04-08 21:20:00 [facility] 1.2.840.114 350.1.13.10 4.2.7.2.686 [id number] [facility] 2023-03-09 20:23:00 2023-03-10 00:20:00 Emergency X ROBERTO RICHARDS [facility] ERT [id number] [facility] 2023-03-09 20:23:00 2023-03-10 00:20:00 Emergency Roberto Richards [facility] 1.2.840.114 350.1.13.10 4.2.7.2.686 [id number] [facility] 2023-03-01 19:35:00 2023-03-02 01:35:00 Emergency X OLIVIA GARCIA [facility] ERT [id number] [facility] 2023-03-01 19:35:00 2023-03-02 01:35:00 Emergency Olivia Garcia [facility] 1.2.840.114 350.1.13.10 4.2.7.2.686 [id number] [facility] 2023-02-17 22:58:00 2023-02-18 02:22:00 Emergency X BRITTNI PADGETT [facility] ERT [id number] [facility] 2023-02-17 22:58:00 2023-02-18 02:22:00 Emergency Brittni Padgett [facility] 1.2.840.114 350.1.13.10 4.2.7.2.686 [id number] [facility] 2023-02-15 13:46:00 2023-02-17 16:14:00 Outpatient X JESÚS MONTERO [facility] ALTHEA [id number] [facility] 2023-02-15 13:46:00 2023-02-17 16:14:00 Emergency Leeanne Wise Kristin Montero Jesús [facility] 1.2.840.114 350.1.13.10 4.2.7.2.686 [id number] [facility] 2022-01-17 10:48:00 2022-01-17 10:48:00 Outpatient [facility] [id number] [facility] 2022-01-09 16:47:00 2022-01-09 20:28:00 Emergency X MELIDA LONGORIA [facility] ERT [id number] [facility] 2022-01-09 16:47:00 2022-01-09 20:28:00 Emergency Melida Longoria C [facility] 1.2.840.114 350.1.13.10 4.2.7.2.686 [id number] [id number] [facility] 2021-12-13 22:16:00 2021-12-14 02:28:00 Emergency X WIL MCQUEEN [facility] ERT [id number] [facility] 2021-12-13 22:16:00 2021-12-14 02:28:00 Emergency Wil Mcqueen [facility] 1.2.840.114 350.1.13.10 4.2.7.2.686 [id number] [facility] 2021-11-11 19:50:00 2021-11-11 23:17:00 Emergency X DEE WANG [facility] ERT [id number] [facility] 2021-11-11 19:50:00 2021-11-11 23:17:00 Emergency Dee Wang [facility] 1.2.840.114 350.1.13.10 4.2.7.2.686 [id number] [facility] 2021-11-11 00:00:00 2021-11-11 00:00:00 Orders Only Doctor Unassigned, [place] [facility] 1.2.840.114 350.1.13.10 4.2.7.2.686 [id number] [facility] 2021-09-11 19:42:00 2021-09-11 23:02:00 Emergency X EDDIE WANGQuincy [facility] ERT [id number] [facility] 2021-09-11 19:42:00 2021-09-11 23:02:00 Emergency Dee Wang [facility] 1.2.840.114 350.1.13.10 4.2.7.2.686 [id number] [id number] [facility] 2021-08-14 23:38:00 2021-08-15 02:29:00 Emergency X OLIVIA GARCIA [facility] ERT [id number] [facility] 2021-08-14 23:38:00 2021-08-15 02:29:00 Emergency Olivia Garcia [facility] 1.2.840.114 350.1.13.10 4.2.7.2.686 [id number] [facility] 2021-05-27 23:23:00 2021-05-28 04:23:00 Emergency X CEM CHOI [facility] ERT [id number] [facility] 2021-05-27 23:23:00 2021-05-28 04:23:00 Emergency Cem Choi [facility] 1.2840.114 350.1.13.10 4.2.7.2.686 [id number] [facility] 2021-04-10 00:00:00 2021-04-10 00:00:00 Transition of Care [address] 1.2.840.114 350.1.13.10 4.2.7.2.686 [id number] [facility] 2021-04-07 16:30:00 2021-04-08 17:45:00 Hospital Encounter Roberto Richards Jelani [facility] 1.2.840.114 350.1.13.10 4.2.7.2.686 [id number] [facility] 2021-04-07 16:18:00 2021-04-07 16:18:00 Emergency X [facility] ERT [id number] [facility] 2021-01-12 03:01:00 2021-01-12 04:56:00 Emergency Narayan Narvaez [facility] 1.2.840.114 350.1.13.10 4.2.7.2.686 [id number] [facility] 2021-01-12 03:01:00 2021-01-12 03:01:00 Emergency X NARAYAN NARVAEZ [facility] ERT [id number] [facility] 2020-12-10 17:12:00 2020-12-10 21:14:00 Emergency Bal Hassan [facility] 1.2.840.114 350.1.13.10 4.2.7.2.686 [id number] [facility] 2020-12-10 17:12:00 2020-12-10 17:12:00 Emergency X BAL HASSAN [facility] ERT [id number] [facility] 2020-12-04 14:50:00 2020-12-04 17:08:00 Emergency Tremaine Becerra [facility] 1.2.840.114 350.1.13.10 4.2.7.2.686 [id number] [facility] 2020-12-04 14:50:00 2020-12-04 17:08:00 Emergency X TREMAINE BECERRA [facility] ERT [id number] [facility] 2020-11-03 20:44:00 2020-11-03 23:34:00 Emergency Leeanne Wise [facility] 1.2.840.114 350.1.13.10 4.2.7.2.686 [id number] [id number] [facility] 2020-11-03 20:44:00 2020-11-03 23:34:00 Emergency X LEEANNE WISE [facility] ERT [id number] [facility] 2020-09-19 12:32:00 2020-09-19 14:15:00 Emergency ER MORA POLLOCK [facility] [id number] [facility] 2020-09-17 09:53:00 2020-09-17 11:55:00 Emergency Leeanne Wise [facility] 1.2.840.114 350.1.13.10 4.2.7.2.686 [id number] [id number] 2020-09-17 09:53:00 2020-09-17 11:55:00 Emergency Leeanne Wise [facility] 1.2.840.114 350.1.13.10 4.2.7.2.686 [id number] [facility] 2020-09-17 09:53:00 2020-09-17 11:55:00 Emergency X LEEANNE WISE [facility] ERT [id number] [facility] 2020-09-07 00:37:00 2020-09-07 01:41:00 [facility] 1.2.840.114 350.1.13.10 4.2.7.2.686 [id number] 2020-09-07 00:37:00 2020-09-07 01:41:00 Emergency Saleem Edward [facility] 1.2.840.114 350.1.13.10 4.2.7.2.686 [id number] [facility] 2020-09-07 00:37:00 2020-09-07 01:41:00 Emergency X Saleem EDWARD [facility] ERT [id number] [facility] 2020-09-07 00:00:00 2020-09-07 00:00:00 Orders Only Doctor Unassigned, [place] [facility] 1.2.840.114 350.1.13.10 4.2.7.2.686 [id number] 2020-09-07 00:00:00 2020-09-07 00:00:00 Orders Only Doctor Unassigned, [place] [facility] 1.2.840.114 350.1.13.10 4.2.7.2.686 [id number] [facility] 2020-08-28 01:59:00 2020-08-28 04:40:00 Emergency Olivia Garcia [facility] 1.2.840.114 350.1.13.10 4.2.7.2.686 [id number] [id number] 2020-08-28 01:59:00 2020-08-28 04:40:[address] [facility] 1.2.840.114 350.1.13.10 4.2.7.2.686 [id number] [facility] 2020-08-28 01:59:00 2020-08-28 01:59:00 Emergency X OLIVIA GARCIA [facility] ERT [id number] [facility] 2020-08-14 11:48:00 2020-08-14 13:42:00 Emergency Best Taylor [facility] 1.2.840.114 350.1.13.10 4.2.7.2.686 [id number] [id number] 2020-08-14 11:48:00 2020-08-14 13:42:00 Emergency Best Taylor [facility] 1.2.840.114 350.1.13.10 4.2.7.2.686 [id number] [id number] [facility] 2020-08-14 11:33:00 2020-08-14 11:33:00 Emergency X BEST TAYLOR [facility] ERT [id number] [facility] 2020-08-10 18:35:00 2020-08-11 00:05:00 Emergency Best [address] [place] [facility] 1.2.840.114 350.1.13.10 4.2.7.2.686 [id number] [id number] 2020-08-10 18:35:00 2020-08-11 00:05:00 Emergency Best Taylor [place] S [facility] 1.2.840.114 350.1.13.10 4.2.7.2.686 [id number] [id number] [facility] 2020-08-10 18:35:00 2020-08-11 00:05:00 Emergency X OLIVIA GARCIA [facility] ERT [id number] [facility] 2020-08-07 07:19:00 2020-08-07 09:02:00 [facility] 1.2.840.114 350.1.13.10 4.2.7.2.686 [id number] 2020-08-07 07:19:00 2020-08-07 09:02:00 Emergency Maurice [facility] 1.2.840.114 350.1.13.10 4.2.7.2.686 [id number] [id number] [facility] 2020-08-07 07:12:00 2020-08-07 07:12:00 Emergency X [facility] ERT [id number] [facility] 2020-08-07 00:00:00 2020-08-07 00:00:00 Orders Only Doctor Unassigned, [place] [facility] 1.2.840.114 350.1.13.10 4.2.7.2.686 [id number] 2020-08-07 00:00:00 2020-08-07 00:00:00 Orders Only Doctor Unassigned, [place] [facility] 1.2.840.114 350.1.13.10 4.2.7.2.686 [id number] [facility] 2020-07-01 00:00:00 2020-07-01 00:00:00 Letter (Out) [facility] 1.2.840.114 350.1.13.10 4.2.7.2.686 [id number] 2020-07-01 00:00:00 2020-07-01 00:00:00 [facility] 1.2.840.114 350.1.13.10 4.2.7.2.686 [id number] [facility] 2020-06-30 17:46:00 2020-06-30 21:06:00 Emergency Abdias Robertson [facility] 1.2.840.114 350.1.13.10 4.2.7.2.686 [id number] [id number] 2020-06-30 17:46:00 2020-06-30 21:06:00 Emergency Abdias Robertson [facility] 1.2.840.114 350.1.13.10 4.2.7.2.686 [id number] 084 [id number] [facility] 2020-06-30 17:46:00 2020-06-30 21:06:00 Emergency X ABDIAS ROBERTSON [facility] ERT [id number] [facility] 2020-06-28 16:00:00 2020-06-28 18:08:00 Emergency Narayan Narvaez [facility] 1.2.840.114 350.1.13.10 4.2.7.2.686 [id number] [id number] 2020-06-28 16:00:00 2020-06-28 18:08:00 Emergency Narayan Narvaez [facility] 1.2.840.114 350.1.13.10 4.2.7.2.686 [id number] [facility] 2020-06-28 16:00:00 2020-06-28 16:00:00 Emergency X NARAYAN NARVAEZ [facility] ERT [id number] [facility] 2020-06-14 00:00:00 2020-06-14 00:00:00 Telephone [facility] 1.2.840.114 350.1.13.10 4.2.7.2.686 [id number] 2020-06-14 00:00:00 2020-06-14 00:00:00 [facility] 1.2.840.114 350.1.13.10 4.2.7.2.686 [id number] [facility] 2020-06-12 17:40:00 2020-06-12 22:05:00 Emergency Leeanne Wise [facility] 1.2.840.114 350.1.13.10 4.2.7.2.686 [id number] [id number] 2020-06-12 17:40:00 2020-06-12 22:05:00 Emergency Leeanne Wise [facility] 1.2.840.114 350.1.13.10 4.2.7.2.686 [id number] [facility] 2020-06-12 17:28:00 2020-06-12 17:28:00 Emergency X [facility] ERT [id number] [facility] 2020-05-16 17:10:00 2020-05-16 19:01:00 Emergency Bushra Rios [facility] 1.2.840.114 350.1.13.10 4.2.7.2.686 [id number] 2020-05-16 17:10:00 2020-05-16 19:01:00 Emergency Bushra Rios [facility] 1.2.840.114 350.1.13.10 4.2.7.2.686 [id number] [id number] [facility] 2020-05-16 17:10:00 2020-05-16 17:10:00 Emergency X BUSHRA RIOS [facility] ERT [id number] [facility] 2020-05-14 23:18:00 2020-05-15 02:54:00 Emergency Roberto Richards [facility] 1.2.840.114 350.1.13.10 4.2.7.2.686 [id number] [id number] 2020-05-14 23:18:00 2020-05-15 02:54:00 Emergency Roberto Richards [facility] 1.2.840.114 350.1.13.10 4.2.7.2.686 [id number] [facility] 2020-05-14 23:14:00 2020-05-14 23:14:00 Emergency X ROBERTO RICHARDS [facility] ERT [id number] [facility] 2009-07-18 05:35:00 2009-07-18 09:19:00 Emergency ER SINCERE FRANK [facility] [id number] [facility] 2008-10-08 09:55:00 2008-10-08 14:19:00 Emergency ER GUMARO ALVAREZ [facility] [id number] [facility] 2008-03-26 15:21:00 2008-03-26 18:08:00 Emergency ER CLAUDETTE NEIL [facility] [id number] [facility] 2005-05-25 06:35:00 2005-05-25 06:35:00 Outpatient LISA LUNA [facility] [id number] [facility] 2005-05-16 21:57:00 2005-05-16 23:40:00 Emergency ER JW SOLORZANO [facility] [id number] [facility] 2005-04-24 18:49:00 2005-04-24 22:40:00 Emergency ER JW SOLORZANO [facility] [id number] [facility] 2004-12-27 20:30:00 2004-12-28 01:40:00 Emergency ER SANIA SIBLEY [facility] [id number] [facility] 2003-12-07 22:40:00 2003-12-08 02:48:00 Emergency ER GINA MARTIN [facility] [id number] [facility] 2003-12-06 13:57:00 2003-12-06 18:30:00 Emergency ER YIN RIOS [facility] [id number] [facility] 2003-08-31 19:43:00 2003-08-31 22:55:00 Emergency ER GUMARO ALVAREZ [facility] [id number] [facility] 2003-08-22 19:26:00 2003-08-22 22:10:00 Emergency ER ALBERTO CASTLE [facility] [id number] [facility] 2002-01-30 22:41:00 2002-01-31 01:29:00 Emergency ER ANTHONY SCHNEIDER [facility] [id number] [facility] 2001-10-28 09:15:00 2001-10-28 11:25:00 Emergency ER LINDA, DARCIE [facility] [id number] [facility] 2001-04-15 19:14:00 2001-04-15 23:10:00 Emergency ER YESICA ARLETTE [facility] [id number] [facility] 2000-12-25 21:52:00 2000-12-26 00:15:00 Emergency ER GISELA RIOS [facility] [id number] [facility] 2000-12-23 18:51:00 2000-12-23 22:00:00 Emergency ER HUGO COFFMAN [facility] [id number] [facility] 1999-10-26 21:11:00 1999-10-27 00:20:00 Emergency ER JW SOLORZANO [facility] [id number] [facility] Results Test Description Test Time Test Comments Results Result Comments Source CT Abdomen pelvis w contrast 05:06:35 Exam: CT Abdomen and Pelvis with contrast, 11/10/2024 8:45 PM. Ordering Physician: OLIVIA GARCIA. History: Abdominal pain, acute, nonlocalized LEFT SIDED ABDOMINAL PAIN X 1 DAY . Comparison: CT abdomen pelvis 10/23/2024. Technique: CT abdomen and pelvis was obtained with intravenous contrast. CTwas performed according to ALARA (As Low As Reasonably Achievable). Technical Quality: Adequate. Findings: LOWER CHEST:Mild bibasilar atelectasis. ABDOMEN/PELVIS:Liver: No focal lesion.Gallbladder/bilia ry: Postcholecystectomy. Prominence of the intra- andextrahepatic biliary system consistent with prior cholecystectomy.Pancreas : Normal.Spleen: Small calcified granuloma. Adrenal glands: Unchanged left adrenal nodule measuring 2.9 cm.Kidneys and ureters: No stone or hydronephrosis. Subcentimeterhypoattenua ting lesions are too small to fully characterize butstatistically represent small cyst.Bladder: Normal.Reproductive organs: Fibroid appearance of the uterus. No adnexal mass. Stomach/bowel: No bowel obstruction. No bowel wall thickening. Normalappendix. Lymph nodes: No lymphadenopathy.Peritone um: No organized fluid collection or free air.Vessels: Unremarkable. MUSCULOSKELETAL:Soft tissues: Unremarkable.Bones: No acute osseous abnormality. [facility]36* Test Item Value Reference Range Interpretation Comme nts LIPASE (test code = 4620897563) 108 U/L 0-220 Lab Interpretation (test cod e = 84822-9) Normal [facility] with [id number] 02:49:12* Test Item Value Reference Range Interpretation Comme nts WBC (test code = 6690-2) 7.85 4.30-11.10 RBC (test code = 789-8) 4.33 3.93-5.25 HGB (test code = 718-7) 11.3 g/dL 11.6-15.0 L HCT (test code = 4544-3) 34.8 % 35.7-45.2 L MCV (test code = 787-2) 80.4 fL 80.6-95.5 L MCH (test code = 785-6) 26.1 pg 25.9-32.8 MCHC (test code = 786-4) 32.5 g/dL 31.6-35.1 RDW-SD (test code = 20969-5) 52.4 fL 39.0-49.9 H RDW-CV (test code = 788-0) 17.9 % 12.0-15.5 H PLT (test code = 777-3) 337 166-358 MPV (test code = 70049-2) 9.6 fL 9.5-12.9 NRBC/100 WBC (test code = 1537589164) 0 0.0-10.0 NRBC x10^3 (test code = 7816859329) See_Comment [Automated messa ge] The system which generated this result transmitted reference range: 10*3/?L. The reference range was not used to interpret this result as normal/abnormal. GRAN MAT (NEUT) % (test code = 770-8) 49.2 % IMM GRAN % (test code = 2844428608) 0.1 % LYMPH % (test code = 736-9) 40.4 % MONO % (test code = 5905-5) 7 % EOS % (test code = 713-8) 2.8 % BASO % (test code = 706-2) 0.5 % GRAN MAT x10^3(ANC) (test code = 7908952961) 3.86 10*3/uL 1.88-7.09 IMM GRAN x10^3 (test code = 5403992070) 0.00-0.06 LYMPH x10^3 (test code = 731-0) 3.17 10*3/uL 1.32-3.29 MONO x10^3 (test code = 742-7) 0.55 10*3/uL 0.33-0.92 EOS x10^3 (test code = 711-2) 0.22 10*3/uL 0.03-0.39 BASO x10^3 (test code = 704-7) 0.04 10*3/uL 0.01-0.07 Lab Interpretation (test code = 34423-4) [id number]:26:00* Test Item Value Reference Range Interpretation Comme nts POCT PREG (test code = 1605) Negative On board controls acceptable with C Line (test code = 3574) Yes POCT PREG LOT # (test code = 3575) [id number] POCT PREG TEST DATE ( test code = 3576) 01/28/2026 Lab Interpretation (test cod e = 34296-3) [facility] Zpzmuxgewxjihdp8471-33-20 20:32:27Left Heart Cath/Coronary Angiography Charity Fagan Demario Date of Service: 11/03/2024 ?2:55 PM Attending Physician: Dane Jurado MDFellow: Dr. JonesReferring Physician: Dr. Sandra ProceduresPerformed:LHC/Coronary Angiogram: CPT 77613PMC of mLAD: CPT 86298YEI of mRCA: CPT 93142 Indication/D iagnosis: ACS ([place]/NSTEMI) Consent: Risks, benefits, alternatives and complications of the procedure discussed with the patient, who understood and agreed to proceed. Aseptic technique: Chlorprep Local Anesthesia: 1% lidocaine without epinephrine Sedation: Moderate Access site: right femoral arteryClosure Method: Angio-Seal Sterile dressing: yes Complications: none Procedures: After patient identification/verification, the patient was thereafter transferred to the cath lab nurse table. ?The access site was prepped and draped in usual sterile fashion. After administering sedation, time out was done. Under ultrasound guidance, using modified Seldinger technique, the right femoral artery was accessed using a micropuncture kit. The access was upgraded to a 6 Fr sheath. A 6 Fr JL 4.0 catheter was then used to cannulate the LM. Selective coronary angiography was done using several views. A 6 Fr JR4 was used to cross the AV with the J wire and the catheter was advanced into the LV where selective LVEDP was measured. The catheter was then used to cannulate the RCA and selective coronary angiography was done using multiple views. ? A decision was reached to proceed with FFR of the mLAD and mRCA. Anticoagulation was thus administered. ACT noted to be > 300. A 6 Fr EBU 3.0 Guide was then advanced to the LM. ?The FFR wire was prepped and FFR of mLAD was done. Angiography was then done. The guide was then exchanged for a 6 Fr JR 4.0 Guide, and the FFR wire was advanced via the Guide into the ascending aorta, where Pd/Pa equalization was again done. FFR of the mRCA was then done. Final angiography was then done. The attending physician was present throughout the procedure and provided the highest level of supervision. Findings: Coronary dominance: right Left main: Large, long, patent LAD: Large, proximal mild LI then 30% before D1, mid mild disease then focal 50- 60% (FFR Baseline of 0.93, peak of 0.84 @ 140 mcg/Kg/min Adenosine IV)before D2, mid mil disease, then intramyocardial segment with bridging noted, distal vessel with mild LI wraps around the apex. D1: Medium size, ostial 80% then mild LI D2: Large, proximal to mid mild LI, mid vessel then gives off two tortuous branches with mild LI Septals: Multiple, small RI: Small to medium size, mild LI LCX: Large, co-dominant,proximal ectasia with mild disease , mid mild LI, mid to distal mild disease OM1: Medium size, proximal mild LI , mid tortuosity, then mid to distal mild LI OM2: Small OM3: Medium size, mild LI OM4,5: Small LPL: Large, mild LI ? RCA: Large, co-dominant, proximal mild LI, mid 50% (FFR Baseline of 1.00, peak of 0.96@ 140 mcg/Kg/min Adenosine IV), mid to distal mild LI, distal stent intoproximal PDA with with mild ISR PDA: Large, proximal stent with mild ISR, mid to distal mild LI PLB: Small LVEDP: 11 mmHg Grafts: Post-Procedure Sedation AddendumImmediately prior to start of sedation, the patient was evaluated and there was no change from the pre-procedure evaluation. I was present and directed medical care.The patient underwent moderate sedation ?for the procedure. The medications administered were recorded in the MAR; oxygenation, ventilation and circulation were monitored continuously and were recorded in the EMR. I evaluated the patient after the procedure.The patient was evaluated immediately as recovering from sedation. Complications: None ?Impression:Patent dRCA stent Moderate mLAD disease. Negative FFRModerate mRCA disease. Negative FFR Plan:Monitor on Telemetry Floor ASA 81 mg daily She is currently on Plavix 75 mg daily as well Continue Crestor 40 mg daily Continue Metoprolol and Imdur Aggressive medical management Findings and plan discussed with patient Dane Jurado MD 11/03/2024 2[facility]2024-11-03 14:39:09* Test Item Value Reference Range Interpretation Comme nts APTT Patient (test code = 3173-2) 43 26-36 H Lab Interpretation (test cod e = 86366-0) [facility]2024-11-03 14:39:09* Test Item Value Reference Range Interpretation Comme nts APTT Patient (test code = 3173-2) 43 26-36 H Lab Interpretation (test cod e = 55119-7) Abnormal [place] [address] Lead ROUTINE [id number] 09:59:09* Test Item Value Reference Range Interpretation Comme nts Lab Interpretation (test cod e = 88071-0) Abnormal [place] [address] Lead ROUTINE [id number] 09:59:09* Test Item Value Reference Range Interpretation Comme nts Lab Interpretation (test cod e = 43142-3) [facility] [id number] 00:01:33 * Test Item Value Reference Range Interpretation Comme [facility] TSH (test code = 9076881225) 4.07 0.45-4.70 Biotin has been reported to cause a negative bias, interpret results relative to patient's use of biotin. Lab Interpretation (test code = 56484-1) [facility] [id number] 00:01:33 * Test Item Value Reference Range Interpretation Comme nts TSH (test code = 1921727632) 4.07 0.45-4.70 Biotin has been reported to cause a negative bias, interpret results relative to patient's use of biotin. Lab Interpretation (test code = 36872-6) [facility] / [id number] 20:11:45 * Test Item Value Reference Range Interpretation Comme nts PROTIME PATIENT (test code = 5964-2) 11.3 10.1-12.6 INR (test code = 6301-6) 1 <=4.5 Normal INR <1.1; Warfarin Therapeutic range 2.0 to 3.0 or 2.5 to 3.5, depending upon the indications. Lab Interpretation (test code = 11507-4) [facility]2025-[facility] 20:11:45* Test Item Value Reference Range Interpretation Comme nts APTT Patient (test code = 3173-2) 25 26-36 L DARWIN (test code = DARWIN) The [facility] patient population mean normal value for aPTT is 30 seconds. Lab Interpretation (test code = 45221-4) [facility] / [id number] 20:11:45 * Test Item Value Reference Range Interpretation Comme nts PROTIME PATIENT (test code = 5964-2) 11.3 10.1-12.6 INR (test code = 6301-6) 1 <=4.5 Normal INR <1.1; Warfarin Therapeutic range 2.0 to 3.0 or 2.5 to 3.5, depending upon the indications. Lab Interpretation (test code = 76756-7) [facility]2025-[facility]-27 20:11:45* Test Item Value Reference Range Interpretation Comme nts APTT Patient (test code = 3173-2) 25 26-36 L DARWIN (test code = DARWIN) The [facility] patient population mean normal value for aPTT is 30 seconds. Lab Interpretation (test code = 45493-4) [facility]normal [facility]2025-04-27 17:14:31* Test Item Value Reference Range Interpretation Comme [facility] Procalcitonin (test code = 2176885892) 0.02 ng/mL <=0.07 DARWIN (test code = DARWIN) INTERPRETATION OF PROCALCITONIN RESULTS IN ADULTS >= 18 YEARS OF AGE Initiation and discontinuation of antibiotics on patients with suspected or confirmed Lower Respiratory Tract Infection in Adults >= 18 years of age. + +-------- --------+ + -----+|Procalcitonin |Interpretation ?|Antibiotic ? ? |Considerations ? |ng/mL ? | ?|recommendation | ? + +-------- --------+ + -----+| <0.1 ? | Bacterial ? ? ?| Strongly ? ? ?| ? | ?| infection very | discouraged ? | Overruling: ? | ?| unlikely ? ? ? | ? | ? Clinically unstable ? ? ? + +-------- --------+ + ? High risk for adverse ? ? | <0.25 ?| Bacterial ? ? ?| Discouraged ? | ? outcome ? | ?| infection ? ? ?| ? | ? SEE IMPORTANT NOTE ?| ?| unlikely ? ? ? | ? | ? + +-------- --------+ + -----+| >=0.25 ? ? ? | Bacterial ? ? ?| Encouraged ? ?| ? | ?| infection ? ? ?| ? | ? | ?| likely ? | ? | Consider treatment failure ?+ +------- ---------+ -+ if levels does not decrease | >0.5 ? | Bacterial ? ? ?| Strongly ? ? ?| appropriately ? | ?| infection very | encouraged ? ?| ? | ?| likely ? | ? | ? + +-------- --------+ + -----+ Discontinuation of antibiotics in high-acuity patients with suspected or confirmed sepsis in Adults >= 18 years of age. + +-------- --------+ + -----+|Procalcitonin |Interpretation ?|Antibiotic ? ? |Considerations ? |ng/mL ? | ?|recommendation | ? + +-------- --------+ + -----+| <0.25 ?| Bacterial ? ? ?| Strongly ? ? ?| ? | ?| infection very | discouraged ? | Overruling: ? | ?| unlikely ? ? ? | ? | ? Clinically unstable ? ? ? + +-------- --------+ + ? High risk for adverse ? ? | <0.5 or drop | Bacterial ? ? ?| Discouraged ? | ? outcome ? | >80% from ? ?| infection ? ? ?| ? | ? SEE IMPORTANT NOTE ?| highest PCT ?| unlikely ? ? ? | ? | ? | level ?| ?| ? | ? + +-------- --------+ + -----+| >=0.5 ?| Bacterial ? ? ?| Encouraged ? ?| ? | ?| infection ? ? ?| ? | ? | ?| likely ? | ? | Consider treatment failure ?+ +------- ---------+ -+ if levels does not decrease | >1.0 ? | Bacterial ? ? ?| Strongly ? ? ?| appropriately ? | ?| infection very | encouraged ? ?| ? | ?| likely ? | ? | ? + +-------- --------+ + -----+ Percentage of drop of Procalcitonin calculation for Discontinuation of antibiotics in high-acuity patients with suspected or confirmed sepsis in Adults >= 18 years of age. ? Procalcitonin highest{}-Procalcitonin current{}Delta Procalcitonin = x100% ? Procalcitonin current {} IMPORTANT NOTE: Procalcitonin may be elevated without bacterial infection by physiologic stress related to trauma, mark, chronic dialysis, metastatic cancer, surgery in the past seven days, malaria, some fungal infections, and some forms of vasculitis. The interpretation algorithm may not apply to patients with immunosuppression (equivalent of >10 mg of prednisone daily), HIV with CD4 cell count < 350 cells/mm3, active malignancy on systemic chemotherapy, solid organ transplant or hematopoietic stem cell transplantation, or hospital acquired pneumonia. Additionally, some clinical trials of procalcitonin have excluded patients with shock requiring vasopressor use, acute respiratory failure requiring mechanical ventilation, or those with known lung abscess/empyema. For further information please refer to:[email or web address] Lab Interpretation (test code = 75493-3) Normal [facility]2025-[facility]-27 17:14:31* Test Item Value Reference Range Interpretation Comme nts Procalcitonin (test code = 3014817159) 0.02 ng/mL <=0.07 DARWIN (test code = DARWIN) INTERPRETATION OF PROCALCITONIN RESULTS IN ADULTS >= 18 YEARS OF AGE Initiation and discontinuation of antibiotics on patients with suspected or confirmed Lower Respiratory Tract Infection in Adults >= 18 years of age. + +-------- --------+ + -----+|Procalcitonin |Interpretation ?|Antibiotic ? ? |Considerations ? |ng/mL ? | ?|recommendation | ? + +-------- --------+ + -----+| <0.1 ? | Bacterial ? ? ?| Strongly ? ? ?| ? | ?| infection very | discouraged ? | Overruling: ? | ?| unlikely ? ? ? | ? | ? Clinically unstable ? ? ? + +-------- --------+ + ? High risk for adverse ? ? | <0.25 ?| Bacterial ? ? ?| Discouraged ? | ? outcome ? | ?| infection ? ? ?| ? | ? SEE IMPORTANT NOTE ?| ?| unlikely ? ? ? | ? | ? + +-------- --------+ + -----+| >=0.25 ? ? ? | Bacterial ? ? ?| Encouraged ? ?| ? | ?| infection ? ? ?| ? | ? | ?| likely ? | ? | Consider treatment failure ?+ +------- ---------+ -+ if levels does not decrease | >0.5 ? | Bacterial ? ? ?| Strongly ? ? ?| appropriately ? | ?| infection very | encouraged ? ?| ? | ?| likely ? | ? | ? + +-------- --------+ + -----+ Discontinuation of antibiotics in high-acuity patients with suspected or confirmed sepsis in Adults >= 18 years of age. + +-------- --------+ + -----+|Procalcitonin |Interpretation ?|Antibiotic ? ? |Considerations ? |ng/mL ? | ?|recommendation | ? + +-------- --------+ + -----+| <0.25 ?| Bacterial ? ? ?| Strongly ? ? ?| ? | ?| infection very | discouraged ? | Overruling: ? | ?| unlikely ? ? ? | ? | ? Clinically unstable ? ? ? + +-------- --------+ + ? High risk for adverse ? ? | <0.5 or drop | Bacterial ? ? ?| Discouraged ? | ? outcome ? | >80% from ? ?| infection ? ? ?| ? | ? SEE IMPORTANT NOTE ?| highest PCT ?| unlikely ? ? ? | ? | ? | level ?| ?| ? | ? + +-------- --------+ + -----+| >=0.5 ?| Bacterial ? ? ?| Encouraged ? ?| ? | ?| infection ? ? ?| ? | ? | ?| likely ? | ? | Consider treatment failure ?+ +------- ---------+ -+ if levels does not decrease | >1.0 ? | Bacterial ? ? ?| Strongly ? ? ?| appropriately ? | ?| infection very | encouraged ? ?| ? | ?| likely ? | ? | ? + +-------- --------+ + -----+ Percentage of drop of Procalcitonin calculation for Discontinuation of antibiotics in high-acuity patients with suspected or confirmed sepsis in Adults >= 18 years of age. ? Procalcitonin highest{}-Procalcitonin current{}Delta Procalcitonin = x100% ? Procalcitonin current {} IMPORTANT NOTE: Procalcitonin may be elevated without bacterial infection by physiologic stress related to trauma, mark, chronic dialysis, metastatic cancer, surgery in the past seven days, malaria, some fungal infections, and some forms of vasculitis. The interpretation algorithm may not apply to patients with immunosuppression (equivalent of >10 mg of prednisone daily), HIV with CD4 cell count < 350 cells/mm3, active malignancy on systemic chemotherapy, solid organ transplant or hematopoietic stem cell transplantation, or hospital acquired pneumonia. Additionally, some clinical trials of procalcitonin have excluded patients with shock requiring vasopressor use, acute respiratory failure requiring mechanical ventilation, or those with known lung abscess/empyema. For further information please refer to:[email or web address] Lab Interpretation (test code = 59811-8) [facility] [id number] 14:54:14* Test Item Value Reference Range Interpretation Comme nts Height (test code = 2259022949) 62 in Weight (test code = 0535308649) 240 lbs Systolic BP (test code = 2129047470) 156 mmHg Diastolic BP (test code = 0533449116) 99 mmHg Heart Rate (test code = 4117366481) 76 bpm BSA (test code = 0017623578) 2.07 m2 LVOT diameter (test code = 9254074550) 1.86 cm LVOT area (test code = 3881993199) 2.7 cm2 Ao root diam (test code = 1069313581) 3.1 cm Aortic root (test code = 1120143407) 3.1 cm Ao root annulus (test code = 9785729107) 3.1 cm LA size (test code = 8717117442) 3.7 cm LVIDD (test code = 9664590328) 3.8 cm Left Ventricular End Diastolic Volume by Teichholz Method (test code = 3308620) 63 mL IVS (test code = 0482710946) 1.35 cm Interventricular Septum Diastolic Thickness by 2D (test code = 8090698) 1.35 cm LVPWD (test code = 9392250063) 1.36 cm PW (test code = 6949157663) 1.36 cm 0.6-1.1 EF(Teich) (test code = 8747469611) 53 % LVIDS (test code = 9990656174) 2.8 cm Left Ventricular End Systolic Volume by Teichholz Method (test code = 5418041) 29.6 mL FS (test code = 6553568098) 27 % EF - 2D (test code = 60147236) 53 % LAV(MOD-sp4) (test code = 0245455430) 53.8 mL E wave decelartion time (test code = 3742883268) 0.25 s MV stenosis pressure 1/2 time (test code = 3309659845) 73.5 ms MV Peak A Edilson (test code = 6777614076) 73.2 cm/s MV Peak E Edilson (test code = 1697652989) 64.2 cm/s E/A ratio (test code = 2433491925) 0.88 ratio MV Prop V (test code = 2030022041) 62.4 cm/s MV E/e' septal (test code = 2428936204) 12.8 cm/s Tapse (test code = 5796576325) 1.58 cm LVOT stroke volume (test code = 9607017049) 60 cm3 LVOT peak edilson (test code = 7682370712) 110.2 cm/s LVOT mn grad (test code = 0745641636) 2.5 mmHg AV LVOT peak gradient (test code = 3446461802) 4.9 mmHg LVOT peak VTI (test code = 7428522420) 22.1 cm LV V1 mean (test code = 8386756129) 75.6 cm/s Aortic valve mean velocity (test code = 2272073509) 97 cm/s Ao peak edilson (test code = 8343176164) 138 cm/s Ao VTI (test code = 4546182786) 28 cm AV area by cont VTI (test code = 7504724888) 2.1 cm2 AV area peak edilson (test code = 7464889892) 2.2 cm2 Ao max PG (test code = 5835166237) 7.6 mm[Hg] AV peak gradient (test code = 8664125901) 7.6 mmHg AV valve area (test code = 4911102518) 2.14 cm2 AV mean gradient (test code = 0923819490) 4 mmHg Radiology Study observation (narrative) (test code = 89162-6) DARWIN (test code = DARWIN) ?Left?Ventricle: Left ventricle size is normal. Normal wall thickness. There is concentric remodeling. Normal systolic function with a visually estimated EF of 55 - 60%. There is impaired relaxation. ?Tricuspid?Valve: Tricuspid valve structure is grossly normal. Trace transvalvular regurgitation. Insufficient tricuspid regurgitation jet to estimate RVSP . ?RA pressure is 0-5 mmHg. Left VentricleLeft ventricle size is normal. Normal wall thickness. There is concentric remodeling. Normal systolic function with a visually estimated EF of 55 - 60%. There is impaired relaxation.Right VentricleRight ventricle size is normal. Normal systolic function.Left AtriumLeft atrium size is normal.Right AtriumRight atrium size is normal.Mitral ValveMitral valve structure is grossly normal. Trace transvalvular regurgitation.Tricusp id ValveTricuspid valve structure is grossly normal. Trace transvalvular regurgitation. Insufficient tricuspid regurgitation jet to estimate RVSP . RA pressure is 0-5 mmHg.Aortic ValveAortic valve opens well. Trace transvalvular regurgitation.Pulmoni c ValvePulmonic valve is grossly normal in structure and function. Trace transvalvular regurgitation.Ascendi ng AortaNormal sized aortic root.PericardiumEvide nce of epicardial fat. Trivial pericardial effusion present.Study DetailsStudy quality was adequate. A complete echocardiogram was performed using 2D, color flow Doppler and spectral Doppler. 3 mL of Optison ultrasound enhancing agent used. [facility] [id number] 14:54:14* Test Item Value Reference Range Interpretation Comme nts Height (test code = 8252108876) 62 in Weight (test code = 0889839650) 240 lbs Systolic BP (test code = 2883531932) 156 mmHg Diastolic BP (test code = 1632457923) 99 mmHg Heart Rate (test code = 0902263229) 76 bpm BSA (test code = 1950478437) 2.07 m2 LVOT diameter (test code = 1088629495) 1.86 cm LVOT area (test code = 6923055688) 2.7 cm2 Ao root diam (test code = 1463376895) 3.1 cm Aortic root (test code = 2335771530) 3.1 cm Ao root annulus (test code = 7718175908) 3.1 cm LA size (test code = 5158475392) 3.7 cm LVIDD (test code = 4776186600) 3.8 cm Left Ventricular End Diastolic Volume by Teichholz Method (test code = 3436379) 63 mL IVS (test code = 4619621072) 1.35 cm Interventricular Septum Diastolic Thickness by 2D (test code = 0992369) 1.35 cm LVPWD (test code = 5869696485) 1.36 cm PW (test code = 8610058413) 1.36 cm 0.6-1.1 EF(Teich) (test code = 5423319866) 53 % LVIDS (test code = 5873917098) 2.8 cm Left Ventricular End Systolic Volume by Teichholz Method (test code = 5619986) 29.6 mL FS (test code = 4721845329) 27 % EF - 2D (test code = 86156071) 53 % LAV(MOD-sp4) (test code = 8609138374) 53.8 mL E wave decelartion time (test code = 5665600945) 0.25 s MV stenosis pressure 1/2 time (test code = 8877631255) 73.5 ms MV Peak A Edilson (test code = 6389470446) 73.2 cm/s MV Peak E Edilson (test code = 4108003892) 64.2 cm/s E/A ratio (test code = 0689795805) 0.88 ratio MV Prop V (test code = 2095317980) 62.4 cm/s MV E/e' septal (test code = 5465982478) 12.8 cm/s Tapse (test code = 0768975395) 1.58 cm LVOT stroke volume (test code = 7013304546) 60 cm3 LVOT peak edilson (test code = 0577096915) 110.2 cm/s LVOT mn grad (test code = 8431525497) 2.5 mmHg AV LVOT peak gradient (test code = 2810697307) 4.9 mmHg LVOT peak VTI (test code = 3743186500) 22.1 cm LV V1 mean (test code = 0942428421) 75.6 cm/s Aortic valve mean velocity (test code = 8814352985) 97 cm/s Ao peak edilson (test code = 8714208442) 138 cm/s Ao VTI (test code = 1874667274) 28 cm AV area by cont VTI (test code = 2039569251) 2.1 cm2 AV area peak edilson (test code = 8014010962) 2.2 cm2 Ao max PG (test code = 0041552857) 7.6 mm[Hg] AV peak gradient (test code = 9064547963) 7.6 mmHg AV valve area (test code = 5591189098) 2.14 cm2 AV mean gradient (test code = 1739323460) 4 mmHg Radiology Study observation (narrative) (test code = 52673-6) DARWIN (test code = DARWIN) ?Left?Ventricle: Left ventricle size is normal. Normal wall thickness. There is concentric remodeling. Normal systolic function with a visually estimated EF of 55 - 60%. There is impaired relaxation. ?Tricuspid?Valve: Tricuspid valve structure is grossly normal. Trace transvalvular regurgitation. Insufficient tricuspid regurgitation jet to estimate RVSP . ?RA pressure is 0-5 mmHg. Left VentricleLeft ventricle size is normal. Normal wall thickness. There is concentric remodeling. Normal systolic function with a visually estimated EF of 55 - 60%. There is impaired relaxation.Right VentricleRight ventricle size is normal. Normal systolic function.Left AtriumLeft atrium size is normal.Right AtriumRight atrium size is normal.Mitral ValveMitral valve structure is grossly normal. Trace transvalvular regurgitation.Tricusp id ValveTricuspid valve structure is grossly normal. Trace transvalvular regurgitation. Insufficient tricuspid regurgitation jet to estimate RVSP . RA pressure is 0-5 mmHg.Aortic ValveAortic valve opens well. Trace transvalvular regurgitation.Pulmoni c ValvePulmonic valve is grossly normal in structure and function. Trace transvalvular regurgitation.Ascendi ng AortaNormal sized aortic root.PericardiumEvide nce of epicardial fat. Trivial pericardial effusion present.Study DetailsStudy quality was adequate. A complete echocardiogram was performed using 2D, color flow Doppler and spectral Doppler. 3 mL of Optison ultrasound enhancing agent used. [facility] Bcc-[id number] 14:40:37* Test Item Value Reference Range Interpretation Comme nts NT-proBNP (test code = 51021-1) <=125 Lab Interpretation (test cod e = 34464-2) Normal [facility] Cvn-[id number] 14:40:37* Test Item Value Reference Range Interpretation Comme nts NT-proBNP (test code = 69410-8) <=125 Lab Interpretation (test cod e = 13500-2) Normal [facility] CenterGlycosylated Hemoglobin (A1C)2024-11-01 14:39:42* Test Item Value Reference Range Interpretation Comme nts HGB A1C (test code = 4548-4) 5.6 % 4.0-5.7 DARWIN (test code = DARWIN) Reference RangesNormal: <5.7%Prediabetes: 5.7 - 6.4%Diabetes: > 6.5% Lab Interpretation (test code = 06704-1) Normal [facility] Center[facility]cos[facility] Hemoglobin (A1C)2024-11-01 14:39:42* Test Item Value Reference Range Interpretation Comme nts HGB A1C (test code = 4548-4) 5.6 % 4.0-5.7 DARWIN (test code = DARWIN) Reference RangesNormal: <5.7%Prediabetes: 5.7 - 6.4%Diabetes: > 6.5% Lab Interpretation (test code = 42840-0) Normal [facility] CenterTroponin [id number] 14:28:10* Test Item Value Reference Range Interpretation Comme nts TROPONIN I (test code = 1515461534) 0.003 ng/mL <=0.034 DARWIN (test code = [...] of biotin. Lab Interpretation (test code = 57862-6) Normal [facility] CenterTroponin [id number] 14:28:10* Test Item Value Reference Range Interpretation Comme nts TROPONIN I (test code = 8641850973) 0.003 ng/mL <=0.034 DARWIN (test code = [...] of biotin. Lab Interpretation (test code = 38259-6) Normal [facility] CenterLipid [facility] (92437)(Total Cholesterol, Triglycerides, HDL)2024-11-01 14:15:31* Test Item Value Reference Range Interpretation Comme nts CHOL (test code = 6629027025) 185 mg/dL 120-200 HDL (test code = 0013571848) 36 mg/dL >=50 L HDLC RATIO (test code = 4549923256) 5.1 <=4.5 H TRIG (test code = 1317904804) 219 mg/dL 30-170 H LDL CHOL (test code = 99987-9) 105 mg/dL <=160 VLDL (test code = 6173751970) 44 mg/dL 5-60 Lab Interpretation (test cod e = 16920-2) Abnormal [facility] Center[facility] (46568)(Total Cholesterol, Triglycerides, HDL)2024-11-01 14:15:31* Test Item Value Reference Range Interpretation Comme nts CHOL (test code = 8638416138) 185 mg/dL 120-200 HDL (test code = 9374202408) 36 mg/dL >=50 L HDLC RATIO (test code = 0809130659) 5.1 <=4.5 H TRIG (test code = 5109788079) 219 mg/dL 30-170 H LDL CHOL (test code = 67214-0) 105 mg/dL <=160 VLDL (test code = 3588932837) 44 mg/dL 5-60 Lab Interpretation (test cod e = 03474-3) Abnormal [facility] [id number] 08:18:33* Test Item Value Reference Range Interpretation Comme nts TROPONIN I (test code = 3977268026) 0.002 ng/mL <=0.034 DARWIN (test code = [...] of biotin. Lab Interpretation (test code = 94770-6) Normal [facility] [id number] 08:18:33* Test Item Value Reference Range Interpretation Comme nts TROPONIN I (test code = 5637933810) 0.002 ng/mL <=0.034 DARWIN (test code = [...] of biotin. Lab Interpretation (test code = 98921-2) Normal [facility] Metabolic Panel (NA, K, CL, CO2, GLUCOSE, BUN, CREATININE, CA)2024-11-01 08:06:31* Test Item Value Reference Range Interpretation Comme nts NA (test code = 2744045014) 138 mmol/L 135-145 K (test code = 5700406983) 3.6 mmol/L 3.5-5.0 CL (test code = 3397961999) 105 mmol/L 98-108 CO2 TOTAL (test code = 0989242226) 25 mmol/L 23-31 AGAP (test code = 5323748509) 8 2-16 BUN (test code = 3332674798) 9 mg/dL 7-23 GLUCOSE (test code = 2348041545) 113 mg/dL 70-110 H CREATININE (test code = 2160-0) 0.63 mg/dL 0.50-1.04 CALCIUM (test code = 9151819807) 9.1 mg/dL 8.6-10.6 eGFR (test code = 77608-6) 111.6 mL/min/1.73m2 CKD-EPI eGFR (2020). Assuming creatinine has been stable day-to-day for at least three months, the eGFR indicates Category G1 (>= 90 mL/min/1.73 m2) Lab Interpretation (test code = 24233-1) Abnormal [facility] Metabolic Panel (NA, K, CL, CO2, GLUCOSE, BUN, CREATININE, CA)2024-11-01 08:06:31* Test Item Value Reference Range Interpretation Comme nts NA (test code = 3571285447) 138 mmol/L 135-145 K (test code = 5164475806) 3.6 mmol/L 3.5-5.0 CL (test code = 3594755076) 105 mmol/L 98-108 CO2 TOTAL (test code = 0599924520) 25 mmol/L 23-31 AGAP (test code = 5742627065) 8 2-16 BUN (test code = 8232495155) 9 mg/dL 7-23 GLUCOSE (test code = 7955652723) 113 mg/dL 70-110 H CREATININE (test code = 2160-0) 0.63 mg/dL 0.50-1.04 CALCIUM (test code = 2912356572) 9.1 mg/dL 8.6-10.6 eGFR (test code = 30544-0) 111.6 mL/min/1.73m2 CKD-EPI eGFR (2020). Assuming creatinine has been stable day-to-day for at least three months, the eGFR indicates Category G1 (>= 90 mL/min/1.73 m2) Lab Interpretation (test code = 28284-3) Abnormal [facility] with [id number] 07:51:49* Test Item Value Reference Range Interpretation Comme nts WBC (test code = 6690-2) 11.34 4.30-11.10 H RBC (test code = 789-8) 4.62 3.93-5.25 HGB (test code = 718-7) 12.1 g/dL 11.6-15.0 HCT (test code = 4544-3) 37.1 % 35.7-45.2 MCV (test code = 787-2) 80.3 fL 80.6-95.5 L MCH (test code = 785-6) 26.2 pg 25.9-32.8 MCHC (test code = 786-4) 32.6 g/dL 31.6-35.1 RDW-SD (test code = 56591-0) 53.2 fL 39.0-49.9 H RDW-CV (test code = 788-0) 18.6 % 12.0-15.5 H PLT (test code = 777-3) 361 166-358 H MPV (test code = 28165-4) 9.5 fL 9.5-12.9 NRBC/100 WBC (test code = 7428454082) 0 0.0-10.0 NRBC x10^3 (test code = 1475606290) See_Comment [Automated messa ge] The system which generated this result transmitted reference range: 10*3/?L. The reference range was not used to interpret this result as normal/abnormal. GRAN MAT (NEUT) % (test code = 770-8) 63.7 % IMM GRAN % (test code = 8921117479) 0.4 % LYMPH % (test code = 736-9) 26.9 % MONO % (test code = 5905-5) 7.1 % EOS % (test code = 713-8) 1.5 % BASO % (test code = 706-2) 0.4 % GRAN MAT x10^3(ANC) (test code = 0651597411) 7.23 10*3/uL 1.88-7.09 H IMM GRAN x10^3 (test code = 9515513093) 0.05 10*3/uL 0.00-0.06 LYMPH x10^3 (test code = 731-0) 3.05 10*3/uL 1.32-3.29 MONO x10^3 (test code = 742-7) 0.8 10*3/uL 0.33-0.92 EOS x10^3 (test code = 711-2) 0.17 10*3/uL 0.03-0.39 BASO x10^3 (test code = 704-7) 0.04 10*3/uL 0.01-0.07 Lab Interpretation (test code = 72069-8) Abnormal [facility] with [id number] 07:51:49* Test Item Value Reference Range Interpretation Comme nts WBC (test code = 6690-2) 11.34 4.30-11.10 H RBC (test code = 789-8) 4.62 3.93-5.25 HGB (test code = 718-7) 12.1 g/dL 11.6-15.0 HCT (test code = 4544-3) 37.1 % 35.7-45.2 MCV (test code = 787-2) 80.3 fL 80.6-95.5 L MCH (test code = 785-6) 26.2 pg 25.9-32.8 MCHC (test code = 786-4) 32.6 g/dL 31.6-35.1 RDW-SD (test code = 31380-4) 53.2 fL 39.0-49.9 H RDW-CV (test code = 788-0) 18.6 % 12.0-15.5 H PLT (test code = 777-3) 361 166-358 H MPV (test code = 14241-0) 9.5 fL 9.5-12.9 NRBC/100 WBC (test code = 6181932416) 0 0.0-10.0 NRBC x10^3 (test code = 6681558403) See_Comment [Automated messa ge] The system which generated this result transmitted reference range: 10*3/?L. The reference range was not used to interpret this result as normal/abnormal. GRAN MAT (NEUT) % (test code = 770-8) 63.7 % IMM GRAN % (test code = 6703779590) 0.4 % LYMPH % (test code = 736-9) 26.9 % MONO % (test code = 5905-5) 7.1 % EOS % (test code = 713-8) 1.5 % BASO % (test code = 706-2) 0.4 % GRAN MAT x10^3(ANC) (test code = 5107214184) 7.23 10*3/uL 1.88-7.09 H IMM GRAN x10^3 (test code = 3329477708) 0.05 10*3/uL 0.00-0.06 LYMPH x10^3 (test code = 731-0) 3.05 10*3/uL 1.32-3.29 MONO x10^3 (test code = 742-7) 0.8 10*3/uL 0.33-0.92 EOS x10^3 (test code = 711-2) 0.17 10*3/uL 0.03-0.39 BASO x10^3 (test code = 704-7) 0.04 10*3/uL 0.01-0.07 Lab Interpretation (test code = 62338-2) [facility] [id number] 03:52:49History: chest pain . Exam: XR CHEST 1 VW Date: 10/31/2024 10:00 PM Ordering provider: OLIVIA GARCIA Comparison: 10/12/2024. Findings: Frontal view of the chest is obtained. The cardiac silhouette is normal in size. There are mild left perihilar andbibasilar opacities, which are similar on the prior. No evidence of pleuraleffusion, pneumothorax, or overt CHF.[facility] 1 [id number] 03:52:49History: chest pain . Exam: XR CHEST 1 VW Date: 10/31/2024 10:00 PM Ordering provider: OLIVIA GARCIA Comparison: 10/12/2024. Findings: Frontal view of the chest is obtained. The cardiac silhouette is n ormal in size. There are mild left perihilar andbibasilar opacities, which are similar on the prior. No evidence of pleuraleffusion, pneumothorax, or overt CHF.[facility] w qvghrtkg4503-37-04 04:15:32CT ABDOMEN PELVIS W CONTRAST 10/23/2024 10:24 PM HISTORY: Abdominal pain, acute, nonlocalized. Upperabdominal pain radiatesto left side. COMPARISON: Multiple prior CT studies, the most recent one dated109/03/2023. TECHNIQUE: Axial images of the abdomen and pelvis were acquired afteradministration ofintravenous contrast. Coronal and sagittalreconstructions were also created. FINDINGS: LOWER CHEST:Bibasilar atelectasis. ? HEPATOBILIARY: The liver is normal [...] hypodensity is noted, too small to characterize. PELVIS /BLADDER: The urinary bladder is normal. 3.5 cm uterine fibroid isagain noted. Left adnexal 3 cm bilocular cyst or cluster of 2 cysts. GI TRACT: Small sliding hiatus hernia. No dilation or wall thickening. Theappendix is normal. PERITONEUM AND RETROPERITONEUM: No free air or free fluid. LYMPH NODES: No lymphadenopathy is seen. VESSELS: Minimal atherosclerotic calcifications of right iliac arteries .Normal caliber of the aorta. BONES AND SOFT TISSUES: No aggressive osseous lesion or acute osseousabnormality. Mild degenerative changes of the spine. No concerning softtissue abnormality.[facility] (70016)2024-10-24 02:17:07* Test Item Value Reference Range Interpretation Comme nts NA (test code = 8365657051) 136 mmol/L 135-145 K (test code = 0054947397) 3.7 mmol/L 3.5-5.0 CL (test code = 7243241958) 105 mmol/L 98-108 CO2 TOTAL (test code = 3096536610) 22 mmol/L 23-31 L AGAP (test code = 9470773143) 9 2-16 BUN (test code = 8049473871) 13 mg/dL 7-23 GLUCOSE (test code = 5971671067) 106 mg/dL 70-110 CREATININE (test code = 2160-0) 0.57 mg/dL 0.50-1.04 TOTAL BILI (test code = 1133322334) 0.4 mg/dL 0.1-1.1 CALCIUM (test code = 6903135027) 9.4 mg/dL 8.6-10.6 T PROTEIN (test code = 5631686733) 7.1 g/dL 6.3-8.2 ALBUMIN (test code = 1611063526) 4 g/dL 3.5-5.0 ALK PHOS (test code = 8583200607) 64 U/L 34-122 ALTv (test code = 1742-6) 15 U/L 5-35 AST(SGOT) (test code = 2655444639) 18 U/L 13-40 eGFR (test code = 32890-8) 114.4 mL/min/1.73m2 CKD-EPI eGFR (2020). Assuming creatinine has been stable day-to-day for at least three months, the eGFR indicates Category G1 (>= 90 mL/min/1.73 m2) Lab Interpretation (test code = 13759-6) [facility]normal [facility]20[facility] 02:16:47* Test Item Value Reference Range Interpretation Comme nts LIPASE (test code = 8800352942) 110 U/L 0-220 Lab Interpretation (test cod e = 72561-1) Normal [facility] with Pdgl3095-01-88 02:13:50* Test Item Value Reference Range Interpretation [...] 32.9 g/dL 31.6-35.1 RDW-SD (test code = 52575-6) 52.2 fL 39.0-49.9 H RDW-CV (test code = 788-0) 17.9 % 12.0-15.5 H PLT (test code = 777-3) 337 166-358 MPV (test code = 59142-8) 9.6 fL 9.5-12.9 IPF % (test code = 6420491764) 1.6 % 1.3-7.7 Platelet count measured by fluorescence method. NRBC/100 WBC (test code = 5026609914) 0 0.0-10.0 NRBC x10^3 (test code = 9507697185) See_Comment [Automated messa ge] The system which generated this result transmitted reference range: 10*3/?L. The reference range was not used to interpret this result as normal/abnormal. GRAN MAT (NEUT) % (test code = 770-8) 62.2 % IMM GRAN % (test code = 8648301915) 0.3 % LYMPH % (test code = 736-9) 29.3 % MONO % (test code = 5905-5) 6.2 % EOS % (test code = 713-8) 1.6 % BASO % (test code = 706-2) 0.4 % GRAN MAT x10^3(ANC) (test code = 1935805099) 6.92 10*3/uL 1.88-7.09 IMM GRAN x10^3 (test code = 6506459104) 0.03 10*3/uL 0.00-0.06 LYMPH x10^3 (test code = 731-0) 3.26 10*3/uL 1.32-3.29 MONO x10^3 (test code = 742-7) 0.69 10*3/uL 0.33-0.92 EOS x10^3 (test code = 711-2) 0.18 10*3/uL 0.03-0.39 BASO x10^3 (test code = 704-7) 0.05 10*3/uL 0.01-0.07 Lab Interpretation (test code = 84112-6) Abnormal [facility] [id number] 07:13:54* Test Item Value Reference Range Interpretation Comme nts TROPONIN I (test code = 4177706421) 0.002 ng/mL <=0.034 DARWIN (test code = [...] of biotin. Lab Interpretation (test code = 97788-9) Normal [facility] [id number] 05:06:47* Test Item Value Reference Range Interpretation Comme nts TROPONIN I (test code = 2707286878) 0.001 ng/mL <=0.034 DARWIN (test code = [...] of biotin. Lab Interpretation (test code = 57950-6) Normal [facility] Bgi-Iyb2737-60-08 05:04:06* Test Item Value Reference Range Interpretation Comme nts NT-proBNP (test code = 55264-5) 110 pg/mL <=125 Lab Interpretation (test cod e = 78976-7) Normal [facility] (80703)2024-10-13 04:55:24* Test Item Value Reference Range Interpretation Comme nts NA (test code = 2173686230) 135 mmol/L 135-145 K (test code = 1363507772) 3.5 mmol/L 3.5-5.0 CL (test code = 3146884960) 104 mmol/L 98-108 CO2 TOTAL (test code = 7362170943) 25 mmol/L 23-31 AGAP (test code = 0417447449) 6 2-16 BUN (test code = 6751543359) 12 mg/dL 7-23 GLUCOSE (test code = 9950439654) 83 mg/dL 70-110 CREATININE (test code = 2160-0) 0.55 mg/dL 0.50-1.04 TOTAL BILI (test code = 7502542477) 0.2 mg/dL 0.1-1.1 CALCIUM (test code = 0261720712) 9.2 mg/dL 8.6-10.6 T PROTEIN (test code = 4039918219) 6.3 g/dL 6.3-8.2 ALBUMIN (test code = 2921561819) 3.5 g/dL 3.5-5.0 ALK PHOS (test code = 8813506798) 58 U/L 34-122 ALTv (test code = 1742-6) 12 U/L 5-35 AST(SGOT) (test code = 8234820829) 13 U/L 13-40 eGFR (test code = 81006-2) 115.4 mL/min/1.73m2 CKD-EPI eGFR (20 21). Assuming creatinine has been stable day-to-day for at least three months, the eGFR indicates Category G1 (>= 90 mL/min/1.73 m2) [facility]2025-[facility] 04:55:03* Test Item Value Reference Range Interpretation Comme nts LIPASE (test code = 5735497295) 80 U/L 0-220 Lab Interpretation (test cod e = 29074-4) Normal [facility] with Vclw2909-72-44 04:41:23* Test Item Value Reference Range Interpretation [...] 32.1 g/dL 31.6-35.1 RDW-SD (test code = 03705-6) 51.6 fL 39.0-49.9 H RDW-CV (test code = 788-0) 17.9 % 12.0-15.5 H PLT (test code = 777-3) 328 166-358 MPV (test code = 70873-5) 8.9 fL 9.5-12.9 L NRBC/100 WBC (test code = 6296869243) 0.0 0.0-10.0 NRBC x10^3 (test code = 6089935887) See_Comment [Automated messa ge] The system which generated this result transmitted reference range: 10*3/?L. The reference range was not used to interpret this result as normal/abnormal. GRAN MAT (NEUT) % (test code = 770-8) 60.6 % IMM GRAN % (test code = 0028024432) 0.60 % LYMPH % (test code = 736-9) 31.0 % MONO % (test code = 5905-5) 5.9 % EOS % (test code = 713-8) 1.5 % BASO % (test code = 706-2) 0.4 % GRAN MAT x10^3(ANC) (test code = 2596114501) 6.12 10*3/uL 1.88-7.09 IMM GRAN x10^3 (test code = 3591215341) 0.06 10*3/uL 0.00-0.06 LYMPH x10^3 (test code = 731-0) 3.13 10*3/uL 1.32-3.29 MONO x10^3 (test code = 742-7) 0.60 10*3/uL 0.33-0.92 EOS x10^3 (test code = 711-2) 0.15 10*3/uL 0.03-0.39 BASO x10^3 (test code = 704-7) 0.04 10*3/uL 0.01-0.07 Lab Interpretation (test code = 66841-3) [facility]normal [facility] [id number] 03:46:00* Test Item Value Reference Range Interpretation Comme nts POCT PREG (test code = 1605) Negative On board controls acceptable with C Line (test code = 3574) Yes POCT PREG LOT # (test code = 3575) [id number] POCT PREG TEST DATE ( test code = 3576) 11/30/2025 Lab Interpretation (test cod e = 10042-6) Normal [facility] Chest pulmonary xnqabebvb7218-01-24 06:33:58Exam: CT Angiography Chest with Contrast, 07/18/2024 [...] the spleen. Osseous: No acute osseous finding. [facility] Abdomen pelvis w dtrupjuj0523-43-83 06:50:04Exam: CT Abdomen and Pelvis With Contrast, [...] is nopelvic adenopathy. Osseous/Soft Tissues: Unremarkable. [facility] IGUM0823-97-00 05:33:00* Test Item Value Reference Range Interpretation Comme nts POCT PREG (test code = 1605) Negative On board controls acceptable with C Line (test code = 3574) Yes POCT PREG LOT # (test code = 3570) [id number] POCT PREG TEST DATE ( test code = 3576) 2025-06-22 Lab Interpretation (test cod e = 59791-7) [facility] Center[facility] Metabolic Zskho3984-53-25 04:06:42* Test Item Value Reference Range Interpretation Comme nts NA (test code = 3802963736) 139 mmol/L 135-145 K (test code = 1048206703) 3.5 mmol/L 3.5-5.0 CL (test code = 9476688496) 105 mmol/L 98-108 CO2 TOTAL (test code = 2818968797) 26 mmol/L 23-31 AGAP (test code = 5971314984) 8 2-16 BUN (test code = 7256422081) 5 mg/dL 7-23 L GLUCOSE (test code = 4716834283) 101 mg/dL 70-110 CREATININE (test code = 2160-0) 0.58 mg/dL 0.50-1.04 TOTAL BILI (test code = 6196884628) 0.1-1.1 L CALCIUM (test code = 4411533289) 9.3 mg/dL 8.6-10.6 T PROTEIN (test code = 4698394140) 6.8 g/dL 6.3-8.2 ALBUMIN (test code = 1773105669) 3.9 g/dL 3.5-5.0 ALK PHOS (test code = 5591691913) 74 U/L 34-122 ALTv (test code = 1742-6) 17 U/L 5-35 AST(SGOT) (test code = 4618897255) 28 U/L 13-40 eGFR (test code = 57492-4) 113.9 mL/min/1.73m2 CKD-EPI eGFR (2020). Assuming creatinine has been stable day-to-day for at least three months, the eGFR indicates Category G1 (>= 90 mL/min/1.73 m2) Lab Interpretation (test code = 50941-9) [facility]normal [facility], Ibjko3025-56-53 04:01:05* Test Item Value Reference Range Interpretation Comme nts LIPASE (test code = 7466764986) 80 U/L 0-220 Lab Interpretation (test cod e = 46229-3) Normal [facility] CenterCBC with Rsqrhuxrgumd6836-92-33 03:46:26* Test Item Value Reference Range Interpretation [...] 33.2 g/dL 31.6-35.1 RDW-SD (test code = 15389-2) 42.5 fL 39.0-49.9 RDW-CV (test code = 788-0) 14.6 % 12.0-15.5 PLT (test code = 777-3) 327 166-358 MPV (test code = 45457-2) 9.3 fL 9.5-12.9 L NRBC/100 WBC (test code = 1887808182) 0.0 0.0-10.0 NRBC x10^3 (test code = 3994730582) See_Comment [Automated messa ge] The system which generated this result transmitted reference range: 10*3/?L. The reference range was not used to interpret this result as normal/abnormal. GRAN MAT (NEUT) % (test code = 770-8) 65.7 % IMM GRAN % (test code = 4854371712) 0.50 % LYMPH % (test code = 736-9) 26.4 % MONO % (test code = 5905-5) 5.6 % EOS % (test code = 713-8) 1.4 % BASO % (test code = 706-2) 0.4 % GRAN MAT x10^3(ANC) (test code = 6752437479) 8.21 10*3/uL 1.88-7.09 H IMM GRAN x10^3 (test code = 2630644100) 0.06 10*3/uL 0.00-0.06 LYMPH x10^3 (test code = 731-0) 3.30 10*3/uL 1.32-3.29 H MONO x10^3 (test code = 742-7) 0.70 10*3/uL 0.33-0.92 EOS x10^3 (test code = 711-2) 0.17 10*3/uL 0.03-0.39 BASO x10^3 (test code = 704-7) 0.05 10*3/uL 0.01-0.07 Lab Interpretation (test code = 28578-9) [facility]normal [facility] w gjyidzff1785-79-73 05:39:04CT ABDOMEN PELVIS W CONTRAST HISTORY: 44 [...] TISSUES: No suspicious lytic or sclerotic bony lesions.[facility]. Metabolic Panel (59072)2024-06-15 05:12:33* Test Item Value Reference Range Interpretation Comme nts NA (test code = 3627778548) 139 mmol/L 135-145 K (test code = 1775759355) 3.7 mmol/L 3.5-5.0 CL (test code = 6366170213) 109 mmol/L 98-108 H CO2 TOTAL (test code = 8502075655) 23 mmol/L 23-31 AGAP (test code = 3911586598) 7 2-16 BUN (test code = 4588844438) 6 mg/dL 7-23 L GLUCOSE (test code = 3155310710) 101 mg/dL 70-110 CREATININE (test code = 2160-0) 0.67 mg/dL 0.50-1.04 TOTAL BILI (test code = 0435670270) 0.1-1.1 L CALCIUM (test code = 9490706087) 9.4 mg/dL 8.6-10.6 T PROTEIN (test code = 5402448647) 7.0 g/dL 6.3-8.2 ALBUMIN (test code = 6942783231) 4.0 g/dL 3.5-5.0 ALK PHOS (test code = 4951454604) 87 U/L 34-122 ALTv (test code = 1742-6) 28 U/L 5-35 AST(SGOT) (test code = 0401701528) 24 U/L 13-40 eGFR (test code = 31326-2) 110.0 mL/min/1.73m2 CKD-EPI eGFR (2020). Assuming creatinine has been stable day-to-day for at least three months, the eGFR indicates Category G1 (>= 90 mL/min/1.73 m2) Lab Interpretation (test code = 05088-5) [facility]normal [facility] CenterTroponin Y5988-95-05 05:03:33* Test Item Value Reference Range Interpretation Comme nts TROPONIN I (test code = 6123350419) 0.000 ng/mL <=0.034 DARWIN (test code = [...] of biotin. Lab Interpretation (test code = 50087-8) Normal [facility] CenterLipase2024-12-09 04:51:35* Test Item Value Reference Range Interpretation Comme nts LIPASE (test code = 6072445719) 94 U/L 0-220 Lab Interpretation (test cod e = 25740-3) Normal [facility] CenterPregnancy Test, Wchat7414-17-06 04:51:30* Test Item Value Reference Range Interpretation Comme nts PREG SERUM (test code = 5495522818) Negative DARWIN (test code = DARWIN) Less than 10 IU/L. ?If low titer or ectopic is suspected, resubmit specimen in 48-72 hours. [facility] CenterCb with Rqgg5004-19-04 04:36:57* Test Item Value Reference Range Interpretation [...] 32.9 g/dL 31.6-35.1 RDW-SD (test code = 33481-5) 44.3 fL 39.0-49.9 RDW-CV (test code = 788-0) 15.0 % 12.0-15.5 PLT (test code = 777-3) 347 166-358 MPV (test code = 50050-4) 9.4 fL 9.5-12.9 L NRBC/100 WBC (test code = 2558388678) 0.0 0.0-10.0 NRBC x10^3 (test code = 6220626349) See_Comment [Automated messa ge] The system which generated this result transmitted reference range: 10*3/?L. The reference range was not used to interpret this result as normal/abnormal. GRAN MAT (NEUT) % (test code = 770-8) 60.2 % IMM GRAN % (test code = 2385110527) 0.40 % LYMPH % (test code = 736-9) 31.3 % MONO % (test code = 5905-5) 5.8 % EOS % (test code = 713-8) 1.8 % BASO % (test code = 706-2) 0.5 % GRAN MAT x10^3(ANC) (test code = 0988851813) 6.36 10*3/uL 1.88-7.09 IMM GRAN x10^3 (test code = 8323749168) 0.04 10*3/uL 0.00-0.06 LYMPH x10^3 (test code = 731-0) 3.30 10*3/uL 1.32-3.29 H MONO x10^3 (test code = 742-7) 0.61 10*3/uL 0.33-0.92 EOS x10^3 (test code = 711-2) 0.19 10*3/uL 0.03-0.39 BASO x10^3 (test code = 704-7) 0.05 10*3/uL 0.01-0.07 Lab Interpretation (test code = 67896-1) [facility]normal [facility] CenterTroponin [id number] 07:55:17* Test Item Value Reference Range Interpretation Comme nts TROPONIN I (test code = 0879666354) 0.000 ng/mL <=0.034 DARWIN (test code = [...] of biotin. Lab Interpretation (test code = 39193-5) [facility] 1 [id number] 06:16:28Exam: Chest (1 View), 06/06/2024 11:30 PM. Ordering Physician: OLIVIA GARCIA. History: Chest pain. Technique: AP view of the chest. Technical Quality: Adequate. Comparison: Chest radiograph 05/17/2024. Findings: Normal cardiac silhouette size. ?No airspace consolidation, pleuraleffusion, or pneumothorax. No acute osseous abnormality.[facility] CenterPOCT HFVH7527-96-18 05:19:00* Test Item Value Reference Range Interpretation Comme nts POCT PREG (test code = 1605) Negative On board controls acceptable with C Line (test code = 3574) Yes POCT PREG LOT # (test code = 3575) [id number] POCT PREG TEST DATE ( test code = 3576) 04/11/2025 Lab Interpretation (test cod e = 68727-5) Normal [facility] CenterTroponin [id number] 05:00:24* Test Item Value Reference Range Interpretation Comme nts TROPONIN I (test code = 7000766155) 0.000 ng/mL <=0.034 DARWIN (test code = [...] of biotin. Lab Interpretation (test code = 52927-8) Normal [facility] Center[facility]. Metabolic Panel (78334)2024-06-07 05:00:19* Test Item Value Reference Range Interpretation Comme nts NA (test code = 5675847431) 139 mmol/L 135-145 K (test code = 8988601614) 3.6 mmol/L 3.5-5.0 CL (test code = 5958132628) 108 mmol/L 98-108 CO2 TOTAL (test code = 7002124275) 22 mmol/L 23-31 L AGAP (test code = 0781971626) 9 2-16 BUN (test code = 4917528555) 10 mg/dL 7-23 GLUCOSE (test code = 3197773772) 144 mg/dL 70-110 H CREATININE (test code = 2160-0) 0.62 mg/dL 0.50-1.04 TOTAL BILI (test code = 1088313542) 0.1-1.1 L CALCIUM (test code = 1274783548) 9.2 mg/dL 8.6-10.6 T PROTEIN (test code = 5622947482) 6.5 g/dL 6.3-8.2 ALBUMIN (test code = 9923878514) 3.7 g/dL 3.5-5.0 ALK PHOS (test code = 7164072498) 69 U/L 34-122 ALTv (test code = 1742-6) 14 U/L 5-35 AST(SGOT) (test code = 8991837949) 15 U/L 13-40 eGFR (test code = 18183-3) 112.1 mL/min/1.73m2 CKD-EPI eGFR (2020). Assuming creatinine has been stable day-to-day for at least three months, the eGFR indicates Category G1 (>= 90 mL/min/1.73 m2) Lab Interpretation (test code = 71507-5) Abnormal [facility] with Rcho0558-89-05 04:38:25* Test Item Value Reference Range Interpretation [...] 32.8 g/dL 31.6-35.1 RDW-SD (test code = 69603-5) 44.1 fL 39.0-49.9 RDW-CV (test code = 788-0) 14.9 % 12.0-15.5 PLT (test code = 777-3) 358 166-358 MPV (test code = 72346-0) 9.4 fL 9.5-12.9 L NRBC/100 WBC (test code = 5583729776) 0.0 0.0-10.0 NRBC x10^3 (test code = 0802177790) See_Comment [Automated InteKrina ge] The system which generated this result transmitted reference range: 10*3/?L. The reference range was not used to interpret this result as normal/abnormal. GRAN MAT (NEUT) % (test code = 770-8) 58.2 % IMM GRAN % (test code = 9776417211) 0.40 % LYMPH % (test code = 736-9) 34.1 % MONO % (test code = 5905-5) 4.7 % EOS % (test code = 713-8) 2.3 % BASO % (test code = 706-2) 0.3 % GRAN MAT x10^3(ANC) (test code = 5251827259) 5.33 10*3/uL 1.88-7.09 IMM GRAN x10^3 (test code = 1535523253) 0.04 10*3/uL 0.00-0.06 LYMPH x10^3 (test code = 731-0) 3.12 10*3/uL 1.32-3.29 MONO x10^3 (test code = 742-7) 0.43 10*3/uL 0.33-0.92 EOS x10^3 (test code = 711-2) 0.21 10*3/uL 0.03-0.39 BASO x10^3 (test code = 704-7) 0.03 10*3/uL 0.01-0.07 Lab Interpretation (test code = 15588-3) [facility] WO [id number] 18:53:41EXAM: CT HEAD WO CONTRAST HISTORY: 44 [...] Thecalvarium and central skull base are unremarkable.[facility] CenterXR FOREARM 2 VW [id number] 04:08:39EXAM: XR HAND 3+ VW RIGHT, XR [...] radiopaqueforeign body. Mild diffuse soft tissue swelling.[facility]+ VW [id number] 04:08:39EXAM: XR HAND 3+ VW RIGHT, XR [...] radiopaqueforeign body. Mild diffuse soft tissue swelling.[facility] ELBOW <3 VW [id number] 04:08:39EXAM: XR HAND 3+ VW RIGHT, XR [...] body. Mild diffuse soft tissue swelling. [facility] CONTRAST 2024-05-18 03:36:27ORDERING PHYSICIAN:ALESHA FRANKLIN [...] no evidence of retrobulbar hematomas or retroconal fatstranding.[facility] CERVICAL SPINE WO CONTRAST 2024-05-18 [...] arenormal. The visualized lung apices are clear.[facility] [id number] 02:00:00* Test Item Value Reference Range Interpretation Comme nts POCT PREG (test code = 1605) Negative On board controls acceptable with C Line (test code = 3574) Yes Lab Interpretation (test cod e = 58832-1) Normal [facility]. Metabolic Panel (55921)2024-05-08 01:19:56* Test Item Value Reference Range Interpretation Comme nts NA (test code = 6787104649) 139 mmol/L 135-145 K (test code = 2926721239) 3.3 mmol/L 3.5-5.0 L CL (test code = 6206511183) 107 mmol/L 98-108 CO2 TOTAL (test code = 8901710098) 22 mmol/L 23-31 L AGAP (test code = 8715017390) 10 2-16 BUN (test code = 3143766140) 5 mg/dL 7-23 L GLUCOSE (test code = 9535933713) 131 mg/dL 70-110 H CREATININE (test code = 2160-0) 0.72 mg/dL 0.50-1.04 TOTAL BILI (test code = 1748993349) 0.1-1.1 L CALCIUM (test code = 1724168982) 9.3 mg/dL 8.6-10.6 T PROTEIN (test code = 8044174330) 7.0 g/dL 6.3-8.2 ALBUMIN (test code = 8619576185) 4.1 g/dL 3.5-5.0 ALK PHOS (test code = 6515460020) 76 U/L 34-122 ALTv (test code = 1742-6) 27 U/L 5-35 AST(SGOT) (test code = 0502321785) 30 U/L 13-40 eGFR (test code = 02950-5) 105.2 mL/min/1.73m2 CKD-EPI eGFR (2020). Assuming creatinine has been stable day-to-day for at least three months, the eGFR indicates Category G1 (>= 90 mL/min/1.73 m2) Lab Interpretation (test code = 26906-2) [facility]normal [facility] Center[facility]rop[facility] [id number] 01:18:54* Test Item Value Reference Range Interpretation Comme nts TROPONIN I (test code = 3773945937) 0.003 ng/mL <=0.034 DARWIN (test code = [...] of biotin. Lab Interpretation (test code = 71108-1) Normal [facility]esium2024-[facility] 01:07:50* Test Item Value Reference Range Interpretation Comme nts MAGNESIUM (test code = 3091668973) 1.7 mg/dL 1.7-2.4 Lab Interpretation (test cod e = 62771-0) Normal [facility] CenterLipase2024-[facility] 01:07:30* Test Item Value Reference Range Interpretation Comme nts LIPASE (test code = 4559946439) 97 U/L 0-220 Lab Interpretation (test cod e = 36426-9) Normal [facility] with [id number] 00:51:30* Test Item Value Reference Range Interpretation [...] 33.2 g/dL 31.6-35.1 RDW-SD (test code = 25468-8) 43.6 fL 39.0-49.9 RDW-CV (test code = 788-0) 14.8 % 12.0-15.5 PLT (test code = 777-3) 382 166-358 H MPV (test code = 92261-4) 9.7 fL 9.5-12.9 NRBC/100 WBC (test code = 8890400875) 0.0 0.0-10.0 NRBC x10^3 (test code = 1547150785) See_Comment [Automated messa ge] The system which generated this result transmitted reference range: 10*3/?L. The reference range was not used to interpret this result as normal/abnormal. GRAN MAT (NEUT) % (test code = 770-8) 63.3 % IMM GRAN % (test code = 2808843627) 0.40 % LYMPH % (test code = 736-9) 27.5 % MONO % (test code = 5905-5) 5.4 % EOS % (test code = 713-8) 2.9 % BASO % (test code = 706-2) 0.5 % GRAN MAT x10^3(ANC) (test code = 0072958548) 7.25 10*3/uL 1.88-7.09 H IMM GRAN x10^3 (test code = 3009495432) 0.05 10*3/uL 0.00-0.06 LYMPH x10^3 (test code = 731-0) 3.15 10*3/uL 1.32-3.29 MONO x10^3 (test code = 742-7) 0.62 10*3/uL 0.33-0.92 EOS x10^3 (test code = 711-2) 0.33 10*3/uL 0.03-0.39 BASO x10^3 (test code = 704-7) 0.06 10*3/uL 0.01-0.07 Lab Interpretation (test code = 52261-1) Abnormal [facility] or plasma cardiac troponin I panel by high sensitivity xdnslt3542-36-58 17:16:00* Test Item Value Reference Range Interpretation Comme nts Troponin T High Sensitivity (test code = 03884-9) < 6.0 [facility] CtrSerum or plasma glucose measurement (mass/volume) 2024-04-10 17:14:00* Test Item Value Reference Range Interpretation Comme nts Random Glucose (test code = 2345-7) 109 [facility] CtrSerum or plasma urea nitrogen measurement (mass/volume)2024-04-10 17:14:00* Test Item Value Reference Range Interpretation Comme nts Blood Urea Nitrogen (test co de = 3094-0) 4 [facility] OwtFNN9797-86-99 17:14:00* Test Item Value Reference Range Interpretation Comme nts Aspartate Amino Transf (AST/ SGOT) (test code = CJV9811) 14 [facility] CtrBilirubin zyito3326-39-12 17:14:00* Test Item Value Reference Range Interpretation Comme nts Total Bilirubin (test code = BSZ9859) < 0.2 [facility] CtrEstimated glomerular filtration rate (GFR) cgeuyrzrouqje1184-08-49 17:14:00* Test Item Value Reference Range Interpretation Comme nts Glomerular Filtration Rate C alc (test code = 533835240) > 60.00 [facility] CtrBUN/creatinine cubls4737-12-12 17:14:00* Test Item Value Reference Range Interpretation Comme nts BUN/Creatinine Ratio (test c ode = 65140094) 7.3 [facility] YepKJ23298-89-74 17:14:00* Test Item Value Reference Range Interpretation Comme nts Carbon Dioxide Level (test c ode = 27116770) 22 [facility] CtrAnion gap qwimpmkbxop8519-31-56 17:14:00* Test Item Value Reference Range Interpretation Comme nts Anion Gap (test code = 47114354) 16.6 [facility] CtrCalcium kgxcv5802-61-79 17:14:00* Test Item Value Reference Range Interpretation Comme nts Calcium Level (test code = 78874300) 9.9 [facility] CtrGlobulin jdk7683-17-91 17:14:00* Test Item Value Reference Range Interpretation Comme nts Globulin (test code = 346744017) 3.1 [facility] CtrALT (SGPT) ser/debk0917-12-69 17:14:00* Test Item Value Reference Range Interpretation Comme nts Alanine Aminotransferase (AL T/SGPT) (test code = 1742-6) 10 [facility] CtrAmylase prbzt2152-53-62 17:14:00* Test Item Value Reference Range Interpretation Comme nts Amylase Level (test code = 1798-8) 48 [facility] JwiHuqhod6680-52-63 17:14:00* Test Item Value Reference Range Interpretation Comme nts Lipase (test code = 13150438) 24 [facility] CtrALP ser/kxzt7042-05-50 17:14:00* Test Item Value Reference Range Interpretation Comme nts Total Alkaline Phosphatase ( test code = 6768-6) 92 [facility] CtrOpiates ekhix8228-46-75 17:13:00* Test Item Value Reference Range Interpretation Comme nts Urine Opiates Screen (test c ode = 746382905) NEGATIVE [facility] CtrUrine hydrocodone measurement (mass/volume) 2024-04-10 17:13:00* Test Item Value Reference Range Interpretation Comme nts Hydrocodone Level (test code = 3681-4) NEGATIVE [facility] CtrUrine fentanyl measurement by confirmatory method (mass/volume)2024-04-10 17:13:00* Test Item Value Reference Range Interpretation Comme nts Urine Fentanyl Screen (test code = 31582-7) NEGATIVE [facility] CtrPhencyclidine (PCP) eu8448-83-60 17:13:00* Test Item Value Reference Range Interpretation Comme nts Urine Phencyclidine (PCP) Le edilson (test code = 603533378) NEGATIVE [facility] CtrPropoxyphene [Mass/volume] in Agrzd8724-94-63 17:13:00* Test Item Value Reference Range Interpretation Comme nts Propoxyphene Level (test cod e = 3545-1) NEGATIVE [facility] CtroxyCODONE [Mass/volume] in Mnrok1623-15-32 17:13:00* Test Item Value Reference Range Interpretation Comme nts Oxycodone Level (test code = 62999-8) NEGATIVE [facility] CtrAmphetamine ur gwqbvf0360-68-92 17:13:00* Test Item Value Reference Range Interpretation Comme nts Urine Amphetamines Screen (t est code = 19342-7) NEGATIVE [facility] SgmWfrawzboc5914-78-25 17:13:00* Test Item Value Reference Range Interpretation Comme nts Methadone Level (test code = ZEY6499) NEGATIVE [facility] CtrBenzodiazepines screen li2563-48-18 17:13:00* Test Item Value Reference Range Interpretation Comme nts Urine Benzodiazepines Screen (test code = 527742890) POSITIVE [facility] CtrCannabinoids (8-cvevfxq-QKM) zbrfqirpyst8795-84-10 17:13:00* Test Item Value Reference Range Interpretation Comme nts Urine Cannabinoids (test cod e = 670412775) NEGATIVE [facility] CtrCocaine metabolite ckxxzq4609-06-80 17:13:00* Test Item Value Reference Range Interpretation Comme nts Urine Cocaine Metabolite (te st code = 468267694) NEGATIVE [facility] CtrUrine leukocyte esterase pyhlhxmai3368-96-12 17:10:00* Test Item Value Reference Range Interpretation Comme nts Urine Leukocyte Esterase (te st code = 528010542) 3+ [facility] CtrRBC count ur ztmz7302-49-60 17:08:00* Test Item Value Reference Range Interpretation Comme nts Urine RBC (test code = 798-9) 0-2 [facility] CtrUrine examination for white blood cells (WBC) 2024-04-10 17:08:00* Test Item Value Reference Range Interpretation Comme nts Urine WBC (test code = 640343570) >100 [facility] CtrAutomated epithelial cells count in urine sediment (number/area)2024-04-10 17:08:00* Test Item Value Reference Range Interpretation Comme nts Urine Epithelial Cells (test code = 85957-6) 6-10 [facility] CtrBacteria detection in urine sediment by light xgrwjajeps5662-89-56 17:08:00* Test Item Value Reference Range Interpretation Comme nts Urine Bacteria (test code = 93558-4) Few [facility] CtrUrine casts detection by automated method 2024-04-10 17:08:00* Test Item Value Reference Range Interpretation Comme nts Urine Casts (test code = 57885-4) 0-2 [facility] CtrHCG ur LZ2068-03-18 17:03:00* Test Item Value Reference Range Interpretation Comme nts Urine HCG, Qualitative (test code = 2106-3) NEGATIVE [facility] CtrColor of Urine by Wlms0931-31-84 17:03:00* Test Item Value Reference Range Interpretation Comme nts Urine Color (test code = 48538-2) Yellow [facility] CtrAppearance of Btomz0210-27-00 17:03:00* Test Item Value Reference Range Interpretation Comme nts Urine Appearance (test code = 5767-9) Cloudy [facility] CtrUrine glucose mllpdrosp3275-07-84 17:03:00* Test Item Value Reference Range Interpretation Comme nts Urine Glucose (UA) (test cod e = 2349-9) Negative [facility] CtrBilirubin wa6601-56-49 17:03:00* Test Item Value Reference Range Interpretation Comme nts Urine Bilirubin (test code = 802131792) Negative [facility] CtrKetones vy7651-21-94 17:03:00* Test Item Value Reference Range Interpretation Comme nts Urine Ketones (test code = 09254918) Negative [facility] CtrSpecific gravity of Urine by Automated test strip 2024-04-10 17:03:00* Test Item Value Reference Range Interpretation Comme nts Urine Specific [place] (test code = 00179-8) 1.006 [facility] CtrUrine blood mchzhgcrs8652-58-52 17:03:00* Test Item Value Reference Range Interpretation Comme nts Urine Blood (test code = 63610-0) Nonhemolyzed Trace [facility] CtrpH lc8494-72-21 17:03:00* Test Item Value Reference Range Interpretation Comme nts Urine pH (test code = 2756-5) 6.000 [facility] CtrProtein oq8112-90-13 17:03:00* Test Item Value Reference Range Interpretation Comme [facility] Urine Protein (test code = 28221518) Negative [facility] CtrUrobilinogen, urine, vq0880-19-36 17:03:00* Test Item Value Reference Range Interpretation Comme [facility] Urine Urobilinogen (test cod e = 945551903) 0.2 [facility] vtpzkyyts0351-20-52 17:03:00* Test Item Value Reference Range Interpretation Comme [facility] Urine Nitrate (test code = 19208-3) Negative [facility] CtrAbsolute eosinophil ehmil9888-88-81 17:00:00* Test Item Value Reference Range Interpretation Comme [facility] Eosinophils # (Auto) (test c ode = EUV2645) 0.25 [facility] CtrRBC hexzh7981-05-42 17:00:00* Test Item Value Reference Range Interpretation Comme [facility] Red Blood Count (test code = 07413896) 5.17 [facility] CmxMdfimurivt1400-28-57 17:00:00* Test Item Value Reference Range Interpretation Comme nts Hematocrit (test code = 93055467) 41.9 [facility] CtrMCV (mean corpuscular volume) determination 2024-04-10 17:00:00* Test Item Value Reference Range Interpretation Comme nts Mean Corpuscular Volume (shailesh t code = 75930-3) 81.0 [facility] CtrMean corpuscular hemoglobin (MCH) determination 2024-04-10 17:00:00* Test Item Value Reference Range Interpretation Comme nts Mean Corpuscular Hemoglobin (test code = 45245094) 26.1 [facility] CtrMean corpuscular hemoglobin concentration (MCHC) vqdrccqoisihj1218-93-63 17:00:00* Test Item Value Reference Range Interpretation Comme [facility] Mean Corpuscular Hemoglobin Concent (test code = 78636934) 32.2 [facility] CtrRBC distribution width coefficient of variation 2024-04-10 17:00:00* Test Item Value Reference Range Interpretation Comme nts Red Cell Distribution Width (test code = 07759537) 15.2 [facility] CtrPlatelet vzsts0457-42-01 17:00:00* Test Item Value Reference Range Interpretation Comme [facility] Platelet Count (test code = 57617266) 343 [facility] CtrMean platelet rswsun1527-03-86 17:00:00* Test Item Value Reference Range Interpretation Comme [facility] Mean Platelet Volume (test c ode = 32927241) 9.3 [facility] CtrNeutrophils seg % mrl2087-46-57 17:00:00* Test Item Value Reference Range Interpretation Comme nts Neutrophils (%) (Auto) (test code = 24099-1) 71.4 [facility] CtrAbsolute immature granulocyte zydpr3579-86-14 17:00:00* Test Item Value Reference Range Interpretation Comme [facility] Absolute Immature Granulocyt e (auto (test code = 74749-9) 0.05 [facility] neutrophils count (number/volume) 2024-04-10 17:00:00* Test Item Value Reference Range Interpretation Comme [facility] Neutrophils # (Auto) (test c ode = 63065-1) 8.20 [facility] CtrAbsolute lymphocyte djfmj4623-68-10 17:00:00* Test Item Value Reference Range Interpretation Comme nts Lymphocytes # (Auto) (test c ode = 37693-7) 2.42 [facility] CtrAbsolute basophil kcagq0952-61-37 17:00:00* Test Item Value Reference Range Interpretation Comme [facility] Basophils # (Auto) (test cod e = 52008726) 0.03 [facility] HospitalAbsolute NRBC rnvcu2797-14-04 17:00:00* Test Item Value Reference Range Interpretation Comme nts Nucleated Red Blood Cells # (test code = 158544024) 0 [facility] CtrCT ABDOMEN PELVIS WO XVGLOSHX2127-67-96 00:27:38 Ordering Physician: LEIGH ROJO Clinical indication: [...] spine.Multilevel lumbar central canal stenosis is present.[facility]abolic Tpiiq9748-11-73 23:13:34* Test Item Value Reference Range Interpretation Comme nts NA (test code = 1758156380) 136 mmol/L 135-145 K (test code = 6575471585) 3.7 mmol/L 3.5-5.0 CL (test code = 6602229489) 106 mmol/L 98-108 CO2 TOTAL (test code = 5229211452) 20 mmol/L 23-31 L AGAP (test code = 2856450672) 10 2-16 BUN (test code = 3392835549) 6 mg/dL 7-23 L GLUCOSE (test code = 4916962304) 149 mg/dL 70-110 H CREATININE (test code = 2160-0) 0.63 mg/dL 0.50-1.04 TOTAL BILI (test code = 1572156767) 0.3 mg/dL 0.1-1.1 CALCIUM (test code = 1764643690) 9.2 mg/dL 8.6-10.6 T PROTEIN (test code = 6568233503) 7.4 g/dL 6.3-8.2 ALBUMIN (test code = 8715146116) 4.3 g/dL 3.5-5.0 ALK PHOS (test code = 0587029902) 74 U/L 34-122 ALTv (test code = 1742-6) 20 U/L 5-35 AST(SGOT) (test code = 3510164854) 22 U/L 13-40 eGFR (test code = 09498-8) 111.6 mL/min/1.73m2 CKD-EPI eGFR (2020). Assuming creatinine has been stable day-to-day for at least three months, the eGFR indicates Category G1 (>= 90 mL/min/1.73 m2) Lab Interpretation (test code = 72695-5) Abnormal [facility] CenterLipase, Kfnlt5975-75-51 23:12:53* Test Item Value Reference Range Interpretation Comme nts LIPASE (test code = 9093122671) 104 U/L 0-220 Lab Interpretation (test cod e = 36927-6) Normal [facility] CenterPOCT Wfwx2161-28-90 23:01:00* Test Item Value Reference Range Interpretation Comme nts POCT PREG (test code = 1605) Negative On board controls acceptable with C Line (test code = 3574) Yes POCT PREG LOT # (test code = 3575) [id number] POCT PREG TEST DATE ( test code = 3576) Lab Interpretation (test cod e = 01553-7) Normal [facility] CenterCBC with Qbpjmsrqyspe8324-41-05 23:00:31* Test Item Value Reference Range Interpretation [...] 33.0 g/dL 31.6-35.1 RDW-SD (test code = 81757-9) 45.5 fL 39.0-49.9 RDW-CV (test code = 788-0) 15.3 % 12.0-15.5 PLT (test code = 777-3) 370 166-358 H MPV (test code = 80133-8) 9.3 fL 9.5-12.9 L NRBC/100 WBC (test code = 7088676385) 0.0 0.0-10.0 NRBC x10^3 (test code = 4778960780) See_Comment [Automated messa ge] The system which generated this result transmitted reference range: 10*3/?L. The reference range was not used to interpret this result as normal/abnormal. GRAN MAT (NEUT) % (test code = 770-8) 71.8 % IMM GRAN % (test code = 4472820775) 0.60 % LYMPH % (test code = 736-9) 20.9 % MONO % (test code = 5905-5) 4.9 % EOS % (test code = 713-8) 1.4 % BASO % (test code = 706-2) 0.4 % GRAN MAT x10^3(ANC) (test code = 5411709641) 9.75 10*3/uL 1.88-7.09 H IMM GRAN x10^3 (test code = 5947356171) 0.08 10*3/uL 0.00-0.06 H LYMPH x10^3 (test code = 731-0) 2.83 10*3/uL 1.32-3.29 MONO x10^3 (test code = 742-7) 0.66 10*3/uL 0.33-0.92 EOS x10^3 (test code = 711-2) 0.19 10*3/uL 0.03-0.39 BASO x10^3 (test code = 704-7) 0.05 10*3/uL 0.01-0.07 Lab Interpretation (test code = 44017-3) Abnormal [facility] CenterCT ABDOMEN PELVIS W IWDIZTMX7606-42-00 05:07:16ORDERING PHYSICIAN:OLIVIA MUSA CLINICAL INFORMATION: ? Abdominal [...] clear. There are nosuspicious focal osseous lesions.[facility] Complete Metabolic Rrouf4355-61-52 04:38:59* Test Item Value Reference Range Interpretation Comme nts NA (test code = 2166396909) 138 mmol/L 135-145 K (test code = 3339424009) 3.7 mmol/L 3.5-5.0 CL (test code = 4610675397) 108 mmol/L 98-108 CO2 TOTAL (test code = 2021610961) 22 mmol/L 23-31 L AGAP (test code = 8056496649) 8 2-16 BUN (test code = 3511185202) 12 mg/dL 7-23 GLUCOSE (test code = 6916819074) 98 mg/dL 70-110 CREATININE (test code = 2160-0) 0.62 mg/dL 0.50-1.04 TOTAL BILI (test code = 3298247867) 0.4 mg/dL 0.1-1.1 CALCIUM (test code = 5702287487) 8.9 mg/dL 8.6-10.6 T PROTEIN (test code = 8774305823) 7.1 g/dL 6.3-8.2 ALBUMIN (test code = 9296318843) 3.8 g/dL 3.5-5.0 ALK PHOS (test code = 4977966478) 89 U/L 34-122 ALTv (test code = 1742-6) 17 U/L 5-35 AST(SGOT) (test code = 5294231597) 22 U/L 13-40 eGFR (test code = 16283-3) 112.8 mL/min/1.73m2 CKD-EPI eGFR (2020). Assuming creatinine has been stable day-to-day for at least three months, the eGFR indicates Category G1 (>= 90 mL/min/1.73 m2) Lab Interpretation (test code = 42980-0) Abnormal [facility] CenterLipase, Bldpo4855-58-52 04:38:58* Test Item Value Reference Range Interpretation Comme nts LIPASE (test code = 7716477504) 136 U/L 0-220 Lab Interpretation (test cod e = 74854-5) Normal [facility] CenterCB with Vguapxvzclcx0031-38-49 04:19:14* Test Item Value Reference Range Interpretation [...] 32.2 g/dL 31.6-35.1 RDW-SD (test code = 14172-4) 50.2 fL 39.0-49.9 H RDW-CV (test code = 788-0) 17.3 % 12.0-15.5 H PLT (test code = 777-3) 377 166-358 H MPV (test code = 40076-1) 9.4 fL 9.5-12.9 L NRBC/100 WBC (test code = 2764481814) 0.0 0.0-10.0 NRBC x10^3 (test code = 9278710099) See_Comment [Automated messa ge] The system which generated this result transmitted reference range: 10*3/?L. The reference range was not used to interpret this result as normal/abnormal. GRAN MAT (NEUT) % (test code = 770-8) 65.3 % IMM GRAN % (test code = 1365396539) 0.40 % LYMPH % (test code = 736-9) 26.1 % MONO % (test code = 5905-5) 6.2 % EOS % (test code = 713-8) 1.6 % BASO % (test code = 706-2) 0.4 % GRAN MAT x10^3(ANC) (test code = 4723955371) 7.33 10*3/uL 1.88-7.09 H IMM GRAN x10^3 (test code = 4011303054) 0.04 10*3/uL 0.00-0.06 LYMPH x10^3 (test code = 731-0) 2.93 10*3/uL 1.32-3.29 MONO x10^3 (test code = 742-7) 0.70 10*3/uL 0.33-0.92 EOS x10^3 (test code = 711-2) 0.18 10*3/uL 0.03-0.39 BASO x10^3 (test code = 704-7) 0.05 10*3/uL 0.01-0.07 Lab Interpretation (test code = 11825-6) [facility]normal [facility]PO[facility] CRSZ2664-26-69 03:40:00* Test Item Value Reference Range Interpretation Comme nts POCT PREG (test code = 1605) Negative On board controls acceptable with C Line (test code = 3574) Yes POCT PREG LOT # (test code = 3575) [id number] POCT PREG TEST DATE ( test code = 3576) 2024-10-13 Lab Interpretation (test cod e = 37199-1) Normal [facility] CenterXR KHV1040-38-18 04:35:04Ordering physician: ROBERTO RICHARDS INDICATION: Abdominal pain COMPARISON: CT of the abdomen and pelv is dated 03/09/2023 FINDINGS: Supine AP view of the abdomen and pelvis. There is no bowelobstruction or generalized constipation.[facility] CenterPOCT Cjmc5784-55-38 02:30:00* Test Item Value Reference Range Interpretation Comme nts POCT PREG (test code = 1605) Negative On board controls acceptable with C Line (test code = 3574) Yes POCT PREG LOT # (test code = 3575) [id number] POCT PREG TEST DATE ( test code = 3576) 2024-09-15 Lab Interpretation (test cod e = 08235-0) Normal [facility] WITH OZZI9973-44-92 00:05:06* Test Item Value Reference Range Interpretation [...] 34.2 g/dL 31.6-35.1 RDW-SD (test code = 81476-6) 41.5 fL 39.0-49.9 RDW-CV (test code = 788-0) 14.5 % 12.0-15.5 PLT (test code = 777-3) 384 See_Comment H [Automated messa ge] The system which generated this result transmitted reference range: 166 - 358 10*3/?L. The reference range was not used to interpret this result as normal/abnormal. MPV (test code = 71856-3) 9.6 fL 9.5-12.9 GRAN MAT (NEUT) % (test code = 770-8) 66.0 % IMM GRAN % (test code = 4384494205) 0.50 % LYMPH % (test code = 736-9) 27.4 % MONO % (test code = 5905-5) 4.6 % EOS % (test code = 713-8) 1.1 % BASO % (test code = 706-2) 0.4 % GRAN MAT x10^3(ANC) (test code = 7895598290) 7.96 10*3/uL 1.88-7.09 H IMM GRAN x10^3 (test code = 0420767097) 0.06 10*3/uL 0.00-0.06 LYMPH x10^3 (test code = 731-0) 3.30 10*3/uL 1.32-3.29 H MONO x10^3 (test code = 742-7) 0.56 10*3/uL 0.33-0.92 EOS x10^3 (test code = 711-2) 0.13 10*3/uL 0.03-0.39 BASO x10^3 (test code = 704-7) 0.05 10*3/uL 0.01-0.07 Lab Interpretation (test code = 69236-5) [facility]normal [facility] CenterCOMP. METABOLIC PANEL (21602)2023-05-09 23:27:13* Test Item Value Reference Range Interpretation Comme nts NA (test code = 3091946076) 137 mmol/L 135-145 K (test code = 4287413436) 3.3 mmol/L 3.5-5.0 L CL (test code = 8653847076) 103 mmol/L 98-108 CO2 TOTAL (test code = 2143900579) 20 mmol/L 23-31 L AGAP (test code = 5956236685) 14 2-16 BUN (test code = 0369297837) 5 mg/dL 7-23 L GLUCOSE (test code = 8823361577) 146 mg/dL 70-110 H CREATININE (test code = 8675525052) 0.60 mg/dL 0.50-1.04 TOTAL BILI (test code = 9514277872) 0.3 mg/dL 0.1-1.1 CALCIUM (test code = 1840997410) 9.3 mg/dL 8.6-10.6 T PROTEIN (test code = 1869236153) 7.9 g/dL 6.3-8.2 ALBUMIN (test code = 8919744481) 4.4 g/dL 3.5-5.0 ALK PHOS (test code = 1070348052) 105 U/L 34-122 ALTv (test code = 1742-6) 38 U/L 5-35 H AST(SGOT) (test code = 7369295243) 21 U/L 13-40 eGFR (test code = 15545-7) 113.7 mL/min/1.73m2 CKD-EPI eGFR (2020). Assuming creatinine has been stable day-to-day for at least three months, the eGFR indicates Category G1 (>= 90 mL/min/1.73 m2) Lab Interpretation (test code = 70096-1) [facility] CenterLIPASE2023-[facility] 23:27:13* Test Item Value Reference Range Interpretation Comme nts LIPASE (test code = 9551604657) 142 U/L 0-220 Lab Interpretation (test cod e = 46355-0) Normal [facility] CenterCOMP. METABOLIC PANEL (04162)2023-04-30 23:41:47* Test Item Value Reference Range Interpretation Comme nts NA (test code = 0164063145) 139 mmol/L 135-145 K (test code = 8433452765) 3.3 mmol/L 3.5-5.0 L CL (test code = 0033957556) 105 mmol/L 98-108 CO2 TOTAL (test code = 0753442878) 20 mmol/L 23-31 L AGAP (test code = 2155649023) 14 2-16 BUN (test code = 8182394840) 6 mg/dL 7-23 L GLUCOSE (test code = 1560815590) 119 mg/dL 70-110 H CREATININE (test code = 0695651850) 0.59 mg/dL 0.50-1.04 TOTAL BILI (test code = 2573352929) 0.3 mg/dL 0.1-1.1 CALCIUM (test code = 3718661664) 9.7 mg/dL 8.6-10.6 T PROTEIN (test code = 3669003609) 7.6 g/dL 6.3-8.2 ALBUMIN (test code = 0589453585) 4.2 g/dL 3.5-5.0 ALK PHOS (test code = 1497229080) 78 U/L 34-122 ALTv (test code = 1742-6) 24 U/L 5-35 AST(SGOT) (test code = 3962457946) 24 U/L 13-40 eGFR (test code = 1329492819) 110.7 mL/min/1.73m2 DARWIN (test code = DARWIN) [...] imaging tests). Lab Interpretation (test code = 34642-2) Abnormal [facility] WITH [id number] 23:29:07* Test Item Value Reference Range Interpretation [...] 33.7 g/dL 31.6-35.1 RDW-SD (test code = 73130-6) 41.5 fL 39.0-49.9 RDW-CV (test code = 788-0) 14.3 % 12.0-15.5 PLT (test code = 777-3) 335 See_Comment [Automated messa ge] The system which generated this result transmitted reference range: 166 - 358 10*3/?L. The reference range was not used to interpret this result as normal/abnormal. MPV (test code = 60923-9) 9.7 fL 9.5-12.9 NRBC/100 WBC (test code = 1225632212) 0.0 See_Comment [Automated [place] ssage] The system which generated this result transmitted reference range: 0.0 - 10.0 /100 WBCs. The reference range was not used to interpret this result as normal/abnormal. NRBC x10^3 (test code = 6908789385) See_Comment [Automated messa ge] The system which generated this result transmitted reference range: 10*3/?L. The reference range was not used to interpret this result as normal/abnormal. GRAN MAT (NEUT) % (test code = 770-8) 65.7 % IMM GRAN % (test code = 3703395064) 0.50 % LYMPH % (test code = 736-9) 25.4 % MONO % (test code = 5905-5) 6.7 % EOS % (test code = 713-8) 1.2 % BASO % (test code = 706-2) 0.5 % GRAN MAT x10^3(ANC) (test code = 6069583476) 7.59 10*3/uL 1.88-7.09 H IMM GRAN x10^3 (test code = 3170248452) 0.06 10*3/uL 0.00-0.06 LYMPH x10^3 (test code = 731-0) 2.94 10*3/uL 1.32-3.29 MONO x10^3 (test code = 742-7) 0.77 10*3/uL 0.33-0.92 EOS x10^3 (test code = 711-2) 0.14 10*3/uL 0.03-0.39 BASO x10^3 (test code = 704-7) 0.06 10*3/uL 0.01-0.07 Lab Interpretation (test code = 99381-9) [id number] 22:59:00* Test Item Value Reference Range Interpretation Comme nts POCT PREG (test code = 1605) Negative On board controls acceptable with C Line (test code = 3574) Yes POCT PREG LOT # (test code = 3575) [id number] POCT PREG TEST DATE ( test code = 3576) 07/10/2024 Lab Interpretation (test cod e = 12181-5) [facility] [id number] 02:36:34* Test Item Value Reference Range Interpretation Comme nts TROPONIN I (test code = 4261415098) 0.000 ng/mL <=0.034 DARWIN (test code = [...] of biotin. Lab Interpretation (test code = 15901-8) [facility] [id number] 02:34:17* Test Item Value Reference Range Interpretation Comme nts NT-proBNP (test code = 25542-8) 40 pg/mL <=125 Lab Interpretation (test cod e = 02740-7) [facility] CenterACTIV[facility] PARTIAL THRMPLAS [id number] 02:33:37* Test Item Value Reference Range Interpretation Comme nts APTT Patient (test code = 3173-2) 25 See_Comment [Automated message] The system which generated this result transmitted reference range: 23 - 38 Seconds. The reference range was not used to interpret this result as normal/abnormal. DARWIN (test code = DARWIN) The [facility] patient population mean normal value for aPTT is 30 seconds. Lab Interpretation (test code = 79044-1) [facility] CenterPROTHROMBIN TIME / [id number] 02:31:36* Test Item Value Reference Range Interpretation [...] the indications. Lab Interpretation (test code = 56168-5) [facility]OL[facility]EL (16306)2023-04-17 02:24:56* Test Item Value Reference Range Interpretation Comme nts NA (test code = 1746933515) 142 mmol/L 135-145 K (test code = 7581695372) 3.1 mmol/L 3.5-5.0 L CL (test code = 2922739358) 108 mmol/L 98-108 CO2 TOTAL (test code = 8362438840) 20 mmol/L 23-31 L AGAP (test code = 6545491653) 14 2-16 BUN (test code = 8583272366) 4 mg/dL 7-23 L GLUCOSE (test code = 7327314190) 107 mg/dL 70-110 CREATININE (test code = 9631362159) 0.61 mg/dL 0.50-1.04 TOTAL BILI (test code = 9418655208) 0.2 mg/dL 0.1-1.1 CALCIUM (test code = 2267422582) 9.1 mg/dL 8.6-10.6 T PROTEIN (test code = 4741243051) 7.0 g/dL 6.3-8.2 ALBUMIN (test code = 6875998827) 3.9 g/dL 3.5-5.0 ALK PHOS (test code = 5134680875) 69 U/L 34-122 ALTv (test code = 1742-6) 21 U/L 5-35 AST(SGOT) (test code = 1873743293) 21 U/L 13-40 eGFR (test code = 8881700856) 106.5 mL/min/1.73m2 DARWIN (test code = DARWIN) [...] imaging tests). Lab Interpretation (test code = 43753-5) [facility] 02:24:56* Test Item Value Reference Range Interpretation Comme nts LIPASE (test code = 0526405278) 104 U/L 0-220 Lab Interpretation (test cod e = 15134-8) [facility] CenterCBC WITH [id number] 02:13:31* Test Item Value Reference Range Interpretation [...] 34.5 g/dL 31.6-35.1 RDW-SD (test code = 34163-1) 39.1 fL 39.0-49.9 RDW-CV (test code = 788-0) 13.5 % 12.0-15.5 PLT (test code = 777-3) 324 See_Comment [Automated messa ge] The system which generated this result transmitted reference range: 166 - 358 10*3/?L. The reference range was not used to interpret this result as normal/abnormal. MPV (test code = 18916-3) 9.3 fL 9.5-12.9 L NRBC/100 WBC (test code = 4578688046) 0.0 See_Comment [Automated me ssage] The system which generated this result transmitted reference range: 0.0 - 10.0 /100 WBCs. The reference range was not used to interpret this result as normal/abnormal. NRBC x10^3 (test code = 1739763190) See_Comment [Automated messa ge] The system which generated this result transmitted reference range: 10*3/?L. The reference range was not used to interpret this result as normal/abnormal. GRAN MAT (NEUT) % (test code = 770-8) 65.2 % IMM GRAN % (test code = 0419887829) 0.40 % LYMPH % (test code = 736-9) 26.5 % MONO % (test code = 5905-5) 5.8 % EOS % (test code = 713-8) 1.7 % BASO % (test code = 706-2) 0.4 % GRAN MAT x10^3(ANC) (test code = 4601368413) 7.01 10*3/uL 1.88-7.09 IMM GRAN x10^3 (test code = 8354869610) 0.04 10*3/uL 0.00-0.06 LYMPH x10^3 (test code = 731-0) 2.85 10*3/uL 1.32-3.29 MONO x10^3 (test code = 742-7) 0.62 10*3/uL 0.33-0.92 EOS x10^3 (test code = 711-2) 0.18 10*3/uL 0.03-0.39 BASO x10^3 (test code = 704-7) 0.04 10*3/uL 0.01-0.07 Lab Interpretation (test code = 31311-1) [facility] CenterPOPA [id number] 02:11:00* Test Item Value Reference Range Interpretation Comme nts POCT PREG (test code = 1605) Negative On board controls acceptable with C Line (test code = 3574) Yes POCT PREG LOT # (test code = 3575) [id number] POCT PREG TEST DATE ( test code = 3576) 2024-09-04 Lab Interpretation (test cod e = 52537-5) [facility]TR[facility] [id number] 23:59:14* Test Item Value Reference Range Interpretation Comme nts TROPONIN I (test code = 3042529979) 0.000 ng/mL <=0.034 DARWIN (test code = [...] of biotin. Lab Interpretation (test code = 90880-3) [facility] CenterCOM. METABOLIC PANEL (68184)2023-04-08 23:47:52* Test Item Value Reference Range Interpretation Comme nts NA (test code = 4548960154) 138 mmol/L 135-145 K (test code = 0039748444) 3.4 mmol/L 3.5-5.0 L CL (test code = 9108188510) 103 mmol/L 98-108 CO2 TOTAL (test code = 1946192224) 22 mmol/L 23-31 L AGAP (test code = 9204223266) 13 2-16 BUN (test code = 7430204602) 6 mg/dL 7-23 L GLUCOSE (test code = 4774674766) 106 mg/dL 70-110 CREATININE (test code = 9753431119) 0.91 mg/dL 0.50-1.04 TOTAL BILI (test code = 3138121092) 0.2 mg/dL 0.1-1.1 CALCIUM (test code = 2501409129) 8.7 mg/dL 8.6-10.6 T PROTEIN (test code = 3879519656) 7.4 g/dL 6.3-8.2 ALBUMIN (test code = 4158791306) 4.1 g/dL 3.5-5.0 ALK PHOS (test code = 2592727011) 71 U/L 34-122 ALTv (test code = 1742-6) 28 U/L 5-35 AST(SGOT) (test code = 0258990241) 28 U/L 13-40 eGFR (test code = 3992275594) 67.2 mL/min/1.73m2 DARWIN (test code = DARWIN) [...] imaging tests). Lab Interpretation (test code = 43546-6) [facility] CenterMAGNESIUM2023-10-02 23:47:52* Test Item Value Reference Range Interpretation Comme nts MAGNESIUM (test code = 0825700467) 2.0 mg/dL 1.7-2.4 Lab Interpretation (test cod e = 51293-9) [facility]2023-[facility] 23:47:52* Test Item Value Reference Range Interpretation Comme nts LIPASE (test code = 8795289178) 74 U/L 0-220 Lab Interpretation (test cod e = 31486-2) Normal [facility] WITH [id number] 23:36:30* Test Item Value Reference Range Interpretation [...] 34.5 g/dL 31.6-35.1 RDW-SD (test code = 32671-7) 39.3 fL 39.0-49.9 RDW-CV (test code = 788-0) 13.6 % 12.0-15.5 PLT (test code = 777-3) 305 See_Comment [Automated messa ge] The system which generated this result transmitted reference range: 166 - 358 10*3/?L. The reference range was not used to interpret this result as normal/abnormal. MPV (test code = 07490-7) 9.6 fL 9.5-12.9 NRBC/100 WBC (test code = 6787142634) 0.0 See_Comment [Automated me ssage] The system which generated this result transmitted reference range: 0.0 - 10.0 /100 WBCs. The reference range was not used to interpret this result as normal/abnormal. NRBC x10^3 (test code = 3186828356) See_Comment [Automated messa ge] The system which generated this result transmitted reference range: 10*3/?L. The reference range was not used to interpret this result as normal/abnormal. GRAN MAT (NEUT) % (test code = 770-8) 66.5 % IMM GRAN % (test code = 2161253444) 0.30 % LYMPH % (test code = 736-9) 25.3 % MONO % (test code = 5905-5) 5.2 % EOS % (test code = 713-8) 2.3 % BASO % (test code = 706-2) 0.4 % GRAN MAT x10^3(ANC) (test code = 6081057962) 6.61 10*3/uL 1.88-7.09 IMM GRAN x10^3 (test code = 4348090158) 0.03 10*3/uL 0.00-0.06 LYMPH x10^3 (test code = 731-0) 2.52 10*3/uL 1.32-3.29 MONO x10^3 (test code = 742-7) 0.52 10*3/uL 0.33-0.92 EOS x10^3 (test code = 711-2) 0.23 10*3/uL 0.03-0.39 BASO x10^3 (test code = 704-7) 0.04 10*3/uL 0.01-0.07 Lab Interpretation (test code = 96207-2) Abnormal [facility] [id number] 02:51:00* Test Item Value Reference Range Interpretation Comme nts POCT PREG (test code = 1605) Negative On board controls acceptable with C Line (test code = 3574) Yes POCT PREG LOT # (test code = 3575) [id number] POCT PREG TEST DATE ( test code = 3576) 07/10/2024 Lab Interpretation (test cod e = 31304-0) Normal [facility] [id number] 03:26:00* Test Item Value Reference Range Interpretation Comme nts POCT PREG (test code = 1605) Negative On board controls acceptable with C Line (test code = 3574) Yes POCT PREG LOT # (test code = 3575) [id number] POCT PREG TEST DATE ( test code = 3576) Lab Interpretation (test cod e = 76659-9) [facility] 22:35:38* Test Item Value Reference Range Interpretation Comme nts LIPASE (test code = 5230612140) 2049 U/L 0-220 H Lab Interpretation (test cod e = 68847-0) [facility] CenterCB WITH [id number] 22:30:10* Test Item Value Reference Range Interpretation [...] 34.6 g/dL 31.6-35.1 RDW-SD (test code = 18984-1) 42.7 fL 39.0-49.9 RDW-CV (test code = 788-0) 14.6 % 12.0-15.5 PLT (test code = 777-3) 331 See_Comment [Automated messa ge] The system which generated this result transmitted reference range: 166 - 358 10*3/?L. The reference range was not used to interpret this result as normal/abnormal. MPV (test code = 41281-5) 9.7 fL 9.5-12.9 NRBC/100 WBC (test code = 2983639930) 0.0 See_Comment [Automated me ssage] The system which generated this result transmitted reference range: 0.0 - 10.0 /100 WBCs. The reference range was not used to interpret this result as normal/abnormal. NRBC x10^3 (test code = 1159357358) See_Comment [Automated messa ge] The system which generated this result transmitted reference range: 10*3/?L. The reference range was not used to interpret this result as normal/abnormal. GRAN MAT (NEUT) % (test code = 770-8) 65.7 % IMM GRAN % (test code = 7896375770) 0.50 % LYMPH % (test code = 736-9) 26.5 % MONO % (test code = 5905-5) 5.4 % EOS % (test code = 713-8) 1.5 % BASO % (test code = 706-2) 0.4 % GRAN MAT x10^3(ANC) (test code = 3075309633) 8.05 10*3/uL 1.88-7.09 H IMM GRAN x10^3 (test code = 9127655557) 0.06 10*3/uL 0.00-0.06 LYMPH x10^3 (test code = 731-0) 3.24 10*3/uL 1.32-3.29 MONO x10^3 (test code = 742-7) 0.66 10*3/uL 0.33-0.92 EOS x10^3 (test code = 711-2) 0.18 10*3/uL 0.03-0.39 BASO x10^3 (test code = 704-7) 0.05 10*3/uL 0.01-0.07 Lab Interpretation (test code = 52737-5) [facility] CenterCOMP[facility] MET[facility]OLIC PANEL (26728)2023-02-15 22:27:47* Test Item Value Reference Range Interpretation Comme nts NA (test code = 8719408822) 138 mmol/L 135-145 K (test code = 3453378855) 3.7 mmol/L 3.5-5.0 CL (test code = 4005215255) 105 mmol/L 98-108 CO2 TOTAL (test code = 6527554610) 23 mmol/L 23-31 AGAP (test code = 9577542487) 10 2-16 BUN (test code = 7927689290) 6 mg/dL 7-23 L GLUCOSE (test code = 8131105609) 92 mg/dL 70-110 CREATININE (test code = 3823413565) 0.77 mg/dL 0.50-1.04 TOTAL BILI (test code = 1466432267) 0.7 mg/dL 0.1-1.1 CALCIUM (test code = 3090613643) 9.0 mg/dL 8.6-10.6 T PROTEIN (test code = 0496451495) 7.5 g/dL 6.3-8.2 ALBUMIN (test code = 6943285946) 4.0 g/dL 3.5-5.0 ALK PHOS (test code = 5091986950) 101 U/L 34-122 ALTv (test code = 1742-6) 25 U/L 5-35 AST(SGOT) (test code = 3272666622) 36 U/L 13-40 eGFR (test code = 0062639467) 81.8 mL/min/1.73m2 DARWIN (test code = DARWIN) [...] imaging tests). Lab Interpretation (test code = 48257-7) [facility] CenterD-[id number] 20:56:28* Test Item Value Reference Range Interpretation Comments D-DIMER (test code = 8107842220) 0.44 See_Comment H [Automated message] The system [...] a diagnosis. Lab Interpretation (test code = 76886-5) [facility]TR[facility] [id number] 01:15:16* Test Item Value Reference Range Interpretation Comments TROPONIN I (test code = 6217055830) 0.001 ng/mL See_Comment [Automated message] The system [...] of biotin. Lab Interpretation (test code = 39425-0) [facility]TR[facility] [id number] 22:52:31* Test Item Value Reference Range Interpretation Comments TROPONIN I (test code = 2953121365) 0.001 ng/mL See_Comment [Automated message] The system [...] of biotin. Lab Interpretation (test code = 25275-4) [facility] CenterN-[facility]MINAL [id number] 22:49:33* Test Item Value Reference Range Interpretation Comme nts NT-proBNP (test code = 4325427182) 145 pg/mL See_Comment H [Automated message] The system which generated this result transmitted reference range: <=125. The reference range was not used to interpret this result as normal/abnormal. DARWIN (test code = DARWIN) Biotin has been reported to cause a negative bias, interpret results relative to patient's use of biotin. Lab Interpretation (test code = 42832-6) [facility] CenterBASI MET[facility]OLIC PANEL (NA, K, CL, CO2, GLUCOSE, BUN, CREATININE, CA)2022-01-09 22:40:32* Test Item Value Reference Range Interpretation Comme nts NA (test code = 6363760261) 142 mmol/L 135-145 K (test code = 2381957569) 3.3 mmol/L 3.5-5.0 L CL (test code = 4226892938) 109 mmol/L 98-108 H CO2 TOTAL (test code = 9803643663) 22 mmol/L 23-31 L AGAP (test code = 8815703880) 2-16 BUN (test code = 0516244965) 9 mg/dL 7-23 GLUCOSE (test code = 8690122209) 116 mg/dL 70-110 H CREATININE (test code = 6947150656) 0.69 mg/dL 0.50-1.04 CALCIUM (test code = 1633128262) 9.2 mg/dL 8.6-10.6 eGFR (test code = 2919455499) mL/min/1.73m2 DARWIN (test code = DARWIN) Association [...] imaging tests). Lab Interpretation (test code = 91513-4) Abnormal [facility] WITH [id number] 22:29:09* Test Item Value Reference Range Interpretation Comme nts WBC (test code = 6690-2) See_Comment [Automated messa ge] The system which generated this result transmitted reference range: 4.30 - 11.10 10*3/?L. The reference range was not used to interpret this result as normal/abnormal. RBC (test code = 789-8) See_Comment [Automated InteKrina ge] The system which generated this result [...] 34.4 g/dL 31.6-35.1 RDW-SD (test code = 35970-1) 40.7 fL 39.0-49.9 RDW-CV (test code = 788-0) 14.1 % 12.0-15.5 PLT (test code = 777-3) See_Comment [Automated InteKrina ge] The system which generated this result transmitted reference range: 166 - 358 10*3/?L. The reference range was not used to interpret this result as normal/abnormal. MPV (test code = 01601-0) 9.6 fL 9.5-12.9 NRBC/100 WBC (test code = 1789601838) See_Comment [Automated Zounds ssage] The system which generated this result transmitted reference range: 0.0 - 10.0 /100 WBCs. The reference range was not used to interpret this result as normal/abnormal. NRBC x10^3 (test code = 2101999389) <0.01 See_Comment [Automated InteKrina ge] The system which generated this result transmitted reference range: 10*3/?L. The reference range was not used to interpret this result as normal/abnormal. GRAN MAT (NEUT) % (test code = 770-8) 54.7 % IMM GRAN % (test code = 7643009318) 0.40 % LYMPH % (test code = 736-9) 33.8 % MONO % (test code = 5905-5) 7.1 % EOS % (test code = 713-8) 3.3 % BASO % (test code = 706-2) 0.7 % GRAN MAT x10^3(ANC) (test code = 2299939619) 4.87 10*3/uL 1.88-7.09 IMM GRAN x10^3 (test code = 4654634987) 0.04 10*3/uL 0.00-0.06 LYMPH x10^3 (test code = 731-0) 3.01 10*3/uL 1.32-3.29 MONO x10^3 (test code = 742-7) 0.63 10*3/uL 0.33-0.92 EOS x10^3 (test code = 711-2) 0.29 10*3/uL 0.03-0.39 BASO x10^3 (test code = 704-7) 0.06 10*3/uL 0.01-0.07 Lab Interpretation (test code = 51497-7) [facility]TR[facility] [id number] 06:45:45* Test Item Value Reference Range Interpretation Comments TROPONIN I (test code = 1774553208) 0.000 ng/mL See_Comment [Automated message] The system [...] of biotin. Lab Interpretation (test code = 64878-2) [facility] CenterTHYROID STIMULATING [id number] 05:00:55 * Test Item Value Reference Range Interpretation Comme nts TSH (test code = 6411095590) See_Comment [Automated InteKrina ge] The system which generated this result transmitted reference range: 0.45 - 4.70 mIU/L. The reference range was not used to interpret this result as normal/abnormal. Lab Interpretation (test code = 99120-2) Normal [facility] [id number] 04:47:50* Test Item Value Reference Range Interpretation Comme nts FREE T4 (test code = 4657164982) See_Comment [Automated InteKrina ge] The system which generated this result transmitted reference range: 0.78 - 2.20 ng/dL:. The reference range was not used to interpret this result as normal/abnormal. Lab Interpretation (test code = 69881-7) [facility] [id number] 04:47:10* Test Item Value Reference Range Interpretation Comme nts FREE T3 (test code = 4341527047) 4.37 pg/mL 2.77-5.27 Lab Interpretation (test cod e = 99949-7) [facility] [id number] 04:42:07* Test Item Value Reference Range Interpretation Comments TROPONIN I (test code = 3232354001) 0.001 ng/mL See_Comment [Automated message] The system [...] of biotin. Lab Interpretation (test code = 64193-8) Normal [facility] METABOLIC PANEL (28235)2021-12-14 04:30:28* Test Item Value Reference Range Interpretation Comme nts NA (test code = 9470796907) 141 mmol/L 135-145 K (test code = 6401717484) 3.6 mmol/L 3.5-5.0 CL (test code = 3692407565) 111 mmol/L 98-108 H CO2 TOTAL (test code = 2000499417) 19 mmol/L 23-31 L AGAP (test code = 9773880009) 2-16 BUN (test code = 9770507173) 15 mg/dL 7-23 GLUCOSE (test code = 6961949092) 113 mg/dL 70-110 H CREATININE (test code = 8592421575) 1.05 mg/dL 0.50-1.04 H TOTAL BILI (test code = 3246693309) 0.2 mg/dL 0.1-1.1 CALCIUM (test code = 0574974982) 9.8 mg/dL 8.6-10.6 T PROTEIN (test code = 4006048342) 6.8 g/dL 6.3-8.2 ALBUMIN (test code = 3232864790) 4.2 g/dL 3.5-5.0 ALK PHOS (test code = 6811069909) 73 U/L 34-122 ALTv (test code = 1742-6) 16 U/L 5-35 AST(SGOT) (test code = 0172414029) 19 U/L 13-40 eGFR (test code = 7927295212) mL/min/1.73m2 DARWIN (test code = DARWIN) Association [...] imaging tests). Lab Interpretation (test code = 54952-5) [facility] 04:29:48* Test Item Value Reference Range Interpretation Comme nts LIPASE (test code = 6905150847) 225 U/L 0-220 H Lab Interpretation (test cod e = 60624-6) [facility] CenterPO[facility] [id number] 04:20:00* Test Item Value Reference Range Interpretation Comme nts POCT PREG (test code = 1605) negative On board controls acceptable with C Line (test code = 3574) present POCT PREG LOT # (test code = 3575) [id number] POCT PREG TEST DATE ( test code = 3576) 2023-05-07 Lab Interpretation (test cod e = 45057-5) [facility]CBC WITH [id number] 04:01:25* Test Item Value Reference Range Interpretation Comme nts WBC (test code = 6690-2) See_Comment [Automated InteKrina ge] The system which generated this result transmitted reference range: 4.30 - 11.10 10*3/?L. The reference range was not used to interpret this result as normal/abnormal. RBC (test code = 789-8) See_Comment H [Automated InteKrina ge] The system which generated this result [...] 34.3 g/dL 31.6-35.1 RDW-SD (test code = 11345-6) 39.5 fL 39.0-49.9 RDW-CV (test code = 788-0) 13.6 % 12.0-15.5 PLT (test code = 777-3) See_Comment [Automated messa ge] The system which generated this result transmitted reference range: 166 - 358 10*3/?L. The reference range was not used to interpret this result as normal/abnormal. MPV (test code = 35367-1) 9.9 fL 9.5-12.9 NRBC/100 WBC (test code = 5281825862) See_Comment [Automated Zounds ssage] The system which generated this result transmitted reference range: 0.0 - 10.0 /100 WBCs. The reference range was not used to interpret this result as normal/abnormal. NRBC x10^3 (test code = 7764244238) <0.01 See_Comment [Automated InteKrina ge] The system which generated this result transmitted reference range: 10*3/?L. The reference range was not used to interpret this result as normal/abnormal. GRAN MAT (NEUT) % (test code = 770-8) 51.5 % IMM GRAN % (test code = 6475603589) 0.50 % LYMPH % (test code = 736-9) 35.8 % MONO % (test code = 5905-5) 9.4 % EOS % (test code = 713-8) 2.2 % BASO % (test code = 706-2) 0.6 % GRAN MAT x10^3(ANC) (test code = 7601518984) 5.37 10*3/uL 1.88-7.09 IMM GRAN x10^3 (test code = 8459174442) 0.05 10*3/uL 0.00-0.06 LYMPH x10^3 (test code = 731-0) 3.73 10*3/uL 1.32-3.29 H MONO x10^3 (test code = 742-7) 0.98 10*3/uL 0.33-0.92 H EOS x10^3 (test code = 711-2) 0.23 10*3/uL 0.03-0.39 BASO x10^3 (test code = 704-7) 0.06 10*3/uL 0.01-0.07 Lab Interpretation (test code = 06637-5) Abnormal [facility] [id number] 04:04:13* Test Item Value Reference Range Interpretation Comments TROPONIN I (test code = 6657415555) 0.001 ng/mL See_Comment [Automated message] The system [...] of biotin. Lab Interpretation (test code = 84612-4) [facility]POPA [id number] 02:56:00* Test Item Value Reference Range Interpretation Comme nts POCT PREG (test code = 1605) negative On board controls acceptable with C Line (test code = 3574) present POCT PREG LOT # (test code = 3575) [id number] POCT PREG TEST DATE ( test code = 3576) 2023-04-06 Lab Interpretation (test cod e = 11760-0) Normal [facility] [id number] 02:15:30* Test Item Value Reference Range Interpretation Comments TROPONIN I (test code = 0125342020) 0.000 ng/mL See_Comment [Automated message] The system [...] of biotin. Lab Interpretation (test code = 01893-5) [facility]AL [id number] 02:12:14* Test Item Value Reference Range Interpretation Comme nts NT-proBNP (test code = 7684099938) 109 pg/mL See_Comment [Automated message] The system which generated this result transmitted reference range: <=125. The reference range was not used to interpret this result as normal/abnormal. DARWIN (test code = DARWIN) Biotin has been reported to cause a negative bias, interpret results relative to patient's use of biotin. Lab Interpretation (test code = 92227-8) [facility]COMP[facility]OL[facility] (59715)2021-11-12 02:04:12* Test Item Value Reference Range Interpretation Comme nts NA (test code = 8315897630) 140 mmol/L 135-145 K (test code = 7423038001) 4.0 mmol/L 3.5-5.0 CL (test code = 6657687691) 111 mmol/L 98-108 H CO2 TOTAL (test code = 7439622803) 17 mmol/L 23-31 L AGAP (test code = 4298555000) 2-16 BUN (test code = 5213537072) 9 mg/dL 7-23 GLUCOSE (test code = 4402210453) 105 mg/dL 70-110 CREATININE (test code = 0892780588) 0.72 mg/dL 0.50-1.04 TOTAL BILI (test code = 9026635227) 0.4 mg/dL 0.1-1.1 CALCIUM (test code = 8935621649) 9.3 mg/dL 8.6-10.6 T PROTEIN (test code = 6200538938) 6.6 g/dL 6.3-8.2 ALBUMIN (test code = 5945872632) 4.0 g/dL 3.5-5.0 ALK PHOS (test code = 7850466303) 70 U/L 34-122 ALTv (test code = 1742-6) 19 U/L 5-35 AST(SGOT) (test code = 3221883360) 21 U/L 13-40 eGFR (test code = 0929162088) mL/min/1.73m2 DARWIN (test code = DARWIN) Association [...] imaging tests). Lab Interpretation (test code = 12879-6) [facility] Test Item Value Reference Range Interpretation Comme nts LIPASE (test code = 9240897358) 173 U/L 0-220 Lab Interpretation (test cod e = 12512-2) Normal [facility] WITH YOLD7296-78-16 01:43:53* Test Item Value Reference Range Interpretation [...] 33.7 g/dL 31.6-35.1 RDW-SD (test code = 58620-1) 41.3 fL 39.0-49.9 RDW-CV (test code = 788-0) 14.3 % 12.0-15.5 PLT (test code = 777-3) See_Comment [Automated messa ge] The system which generated this result transmitted reference range: 166 - 358 10*3/?L. The reference range was not used to interpret this result as normal/abnormal. MPV (test code = 29387-4) 9.7 fL 9.5-12.9 NRBC/100 WBC (test code = 7983817166) See_Comment [Automated Zounds ssage] The system which generated this result transmitted reference range: 0.0 - 10.0 /100 WBCs. The reference range was not used to interpret this result as normal/abnormal. NRBC x10^3 (test code = 9405199392) <0.01 See_Comment [Automated messa ge] The system which generated this result transmitted reference range: 10*3/?L. The reference range was not used to interpret this result as normal/abnormal. GRAN MAT (NEUT) % (test code = 770-8) 62.6 % IMM GRAN % (test code = 5204415615) 0.50 % LYMPH % (test code = 736-9) 27.0 % MONO % (test code = 5905-5) 6.5 % EOS % (test code = 713-8) 2.9 % BASO % (test code = 706-2) 0.5 % GRAN MAT x10^3(ANC) (test code = 7179654792) 6.30 10*3/uL 1.88-7.09 IMM GRAN x10^3 (test code = 3951622930) 0.05 10*3/uL 0.00-0.06 LYMPH x10^3 (test code = 731-0) 2.71 10*3/uL 1.32-3.29 MONO x10^3 (test code = 742-7) 0.65 10*3/uL 0.33-0.92 EOS x10^3 (test code = 711-2) 0.29 10*3/uL 0.03-0.39 BASO x10^3 (test code = 704-7) 0.05 10*3/uL 0.01-0.07 Lab Interpretation (test code = 85445-3) [facility] [id number] 02:21:00* Test Item Value Reference Range Interpretation Comme nts POCT PREG (test code = 1605) Negative On board controls acceptable with C Line (test code = 3574) Present Lab Interpretation (test cod e = 92505-2) [facility] CenterComplete Metabolic [id number] 02:05:50* Test Item Value Reference Range Interpretation Comme nts NA (test code = 7550402307) 137 mmol/L 135-145 K (test code = 3813182279) 3.9 mmol/L 3.5-5.0 CL (test code = 8972345911) 109 mmol/L 98-108 H CO2 TOTAL (test code = 9350707227) 19 mmol/L 23-31 L AGAP (test code = 5857090557) 2-16 BUN (test code = 6638318318) 10 mg/dL 7-23 GLUCOSE (test code = 9114970329) 101 mg/dL 70-110 CREATININE (test code = 6911555142) 0.80 mg/dL 0.50-1.04 TOTAL BILI (test code = 7977841145) 0.3 mg/dL 0.1-1.1 CALCIUM (test code = 1688228990) 8.8 mg/dL 8.6-10.6 T PROTEIN (test code = 2781293209) 6.6 g/dL 6.3-8.2 ALBUMIN (test code = 2681523799) 4.0 g/dL 3.5-5.0 ALK PHOS (test code = 5345081896) 71 U/L 34-122 ALTv (test code = 1742-6) 18 U/L 5-35 AST(SGOT) (test code = 5572755076) 20 U/L 13-40 eGFR (test code = 2287180212) mL/min/1.73m2 DARWIN (test code = DARWIN) Association [...] imaging tests). Lab Interpretation (test code = 39097-3) [facility] CenterLipase, [id number] 02:05:25* Test Item Value Reference Range Interpretation Comme nts LIPASE (test code = 4732221973) 96 U/L 0-220 Lab Interpretation (test cod e = 23262-9) [facility] CenterCBC with Djursnfauuyb2035-73-62 01:53:06* Test Item Value Reference Range Interpretation Comme nts WBC (test code = 6690-2) See_Comment H [Automated Inte[employer]rina Engiver] The system which generated this result transmitted reference range: 4.30 - 11.10 10*3/?L. The reference range was not used to interpret this result as normal/abnormal. RBC (test code = 789-8) See_Comment H [Automated InteKrina ge] The system which generated this result [...] 34.3 g/dL 31.6-35.1 RDW-SD (test code = 87449-9) 40.5 fL 39.0-49.9 RDW-CV (test code = 788-0) 14.4 % 12.0-15.5 PLT (test code = 777-3) See_Comment [Automated InteKrina ge] The system which generated this result transmitted reference range: 166 - 358 10*3/?L. The reference range was not used to interpret this result as normal/abnormal. MPV (test code = 45532-5) 9.4 fL 9.5-12.9 L NRBC/100 WBC (test code = 0513324269) See_Comment [Automated me ssage] The system which generated this result transmitted reference range: 0.0 - 10.0 /100 WBCs. The reference range was not used to interpret this result as normal/abnormal. NRBC x10^3 (test code = 8736341919) <0.01 See_Comment [Automated messa ge] The system which generated this result transmitted reference range: 10*3/?L. The reference range was not used to interpret this result as normal/abnormal. GRAN MAT (NEUT) % (test code = 770-8) 59.8 % IMM GRAN % (test code = 0982760383) 0.40 % LYMPH % (test code = 736-9) 31.0 % MONO % (test code = 5905-5) 6.3 % EOS % (test code = 713-8) 2.0 % BASO % (test code = 706-2) 0.5 % GRAN MAT x10^3(ANC) (test code = 9200653340) 6.73 10*3/uL 1.88-7.09 IMM GRAN x10^3 (test code = 4362804800) 0.05 10*3/uL 0.00-0.06 LYMPH x10^3 (test code = 731-0) 3.50 10*3/uL 1.32-3.29 H MONO x10^3 (test code = 742-7) 0.71 10*3/uL 0.33-0.92 EOS x10^3 (test code = 711-2) 0.23 10*3/uL 0.03-0.39 BASO x10^3 (test code = 704-7) 0.06 10*3/uL 0.01-0.07 Lab Interpretation (test code = 10701-7) Abnormal [facility] [id number] 01:45:00* Test Item Value Reference Range Interpretation Comme nts POCT PREG (test code = 1605) negatibe On board controls acceptable with C Line (test code = 3574) present POCT PREG LOT # (test code = 3575) [id number] POCT PREG TEST DATE ( test code = 3576) 09/04/2022 Lab Interpretation (test cod e = 89369-3) [facility]PO[facility] [id number] 06:35:00* Test Item Value Reference Range Interpretation Comme nts POCT PREG (test code = 1605) negative On board controls acceptable with C Line (test code = 3574) present POCT PREG LOT # (test code = 3575) [id number] POCT PREG TEST DATE ( test code = 3576) Lab Interpretation (test cod e = 62501-3) [facility] CenterTROPONIN [id number] 09:09:55* Test Item Value Reference Range Interpretation Comments TROPONIN I (test code = 0385106007) 0.001 ng/mL See_Comment [Automated message] The system [...] of biotin. Lab Interpretation (test code = 43904-3) [facility] CenterD-UUFWH4128-69-38 07:23:51* Test Item Value Reference Range Interpretation Comments D-DIMER (test code = 6055774742) See_Comment [Automated message] The system which generated [...] a diagnosis. Lab Interpretation (test code = 82286-4) [facility] CenterLIPASE2021-[facility]-21 06:11:26* Test Item Value Reference Range Interpretation Comme nts LIPASE (test code = 5100214337) 155 U/L 0-220 Lab Interpretation (test cod e = 59575-6) Normal [facility] CenterTROPONIN [id number] 06:06:05* Test Item Value Reference Range Interpretation Comments TROPONIN I (test code = 6789408252) 0.002 ng/mL See_Comment [Automated message] The system [...] of biotin. Lab Interpretation (test code = 81677-7) Normal [facility] CenterN-TERMINAL [id number]-[id number] 06:03:04* Test Item Value Reference Range Interpretation Comme nts NT-proBNP (test code = 3148277712) 19 pg/mL See_Comment [Automated message] The system which generated this result transmitted reference range: <=125. The reference range was not used to interpret this result as normal/abnormal. DARWIN (test code = DARWIN) Biotin has been reported to cause a negative bias, interpret results relative to patient's use of biotin. Lab Interpretation (test code = 55492-3) Normal [facility]. METABOLIC PANEL (92034)2021-05-28 05:54:25* Test Item Value Reference Range Interpretation Comme nts NA (test code = 6744291729) 136 mmol/L 135-145 K (test code = 0878556603) 3.2 mmol/L 3.5-5.0 L CL (test code = 8110748884) 109 mmol/L 98-108 H CO2 TOTAL (test code = 9206428862) 16 mmol/L 23-31 L AGAP (test code = 0236486333) 2-16 BUN (test code = 5350847573) 11 mg/dL 7-23 GLUCOSE (test code = 3683558373) 144 mg/dL 70-110 H CREATININE (test code = 4527323049) 0.84 mg/dL 0.50-1.04 TOTAL BILI (test code = 7093697370) 0.2 mg/dL 0.1-1.1 CALCIUM (test code = 8178791848) 9.4 mg/dL 8.6-10.6 T PROTEIN (test code = 9870236038) 6.9 g/dL 6.3-8.2 ALBUMIN (test code = 8902222309) 3.9 g/dL 3.5-5.0 ALK PHOS (test code = 9340423797) 106 U/L 34-122 ALTv (test code = 1742-6) 20 U/L 5-35 AST(SGOT) (test code = 5433364145) 17 U/L 13-40 eGFR (test code = 7712233950) mL/min/1.73m2 DARWIN (test code = DARWIN) Association [...] imaging tests). Lab Interpretation (test code = 24076-7) Abnormal [facility] WITH [id number] 05:40:06* Test Item Value Reference Range Interpretation Comme nts WBC (test code = 6690-2) See_Comment [Automated [employer]] The system which generated this result transmitted reference range: 4.30 - 11.10 10*3/?L. The reference range was not used to interpret this result as normal/abnormal. RBC (test code = 789-8) See_Comment [Addoway] The system which generated this result transmitted [...] 33.3 g/dL 31.6-35.1 RDW-SD (test code = 86565-0) 39.7 fL 39.0-49.9 RDW-CV (test code = 788-0) 13.6 % 12.0-15.5 PLT (test code = 777-3) See_Comment [Automated messa ge] The system which generated this result transmitted reference range: 166 - 358 10*3/?L. The reference range was not used to interpret this result as normal/abnormal. MPV (test code = 82980-5) 9.5 fL 9.5-12.9 NRBC/100 WBC (test code = 3886043626) See_Comment [Automated me ssage] The system which generated this result transmitted reference range: 0.0 - 10.0 /100 WBCs. The reference range was not used to interpret this result as normal/abnormal. NRBC x10^3 (test code = 3704924368) <0.01 See_Comment [Automated messa ge] The system which generated this result transmitted reference range: 10*3/?L. The reference range was not used to interpret this result as normal/abnormal. GRAN MAT (NEUT) % (test code = 770-8) 53.7 % IMM GRAN % (test code = 7035058448) 0.50 % LYMPH % (test code = 736-9) 36.0 % MONO % (test code = 5905-5) 6.3 % EOS % (test code = 713-8) 2.8 % BASO % (test code = 706-2) 0.7 % GRAN MAT x10^3(ANC) (test code = 3374670120) 5.38 10*3/uL 1.88-7.09 IMM GRAN x10^3 (test code = 6484388050) 0.05 10*3/uL 0.00-0.06 LYMPH x10^3 (test code = 731-0) 3.60 10*3/uL 1.32-3.29 H MONO x10^3 (test code = 742-7) 0.63 10*3/uL 0.33-0.92 EOS x10^3 (test code = 711-2) 0.28 10*3/uL 0.03-0.39 BASO x10^3 (test code = 704-7) 0.07 10*3/uL 0.01-0.07 Lab Interpretation (test code = 62336-5) Abnormal [facility] [id number] 05:32:00* Test Item Value Reference Range Interpretation Comme nts POCT PREG (test code = 1605) negative On board controls acceptable with C Line (test code = 3574) present POCT PREG LOT # (test code = 3575) [id number] POCT PREG TEST DATE ( test code = 3576) 08/07/2022 Lab Interpretation (test cod e = 38188-8) [facility] CenterTroponin [id number] 11:13:57* Test Item Value Reference Range Interpretation Comments TROPONIN I (test code = 0636732713) 0.002 ng/mL See_Comment [Automated message] The system [...] of biotin. Lab Interpretation (test code = 84966-8) Normal [facility] Metabolic Panel (NA, K, CL, CO2, GLUCOSE, BUN, CREATININE, CA)2021-04-08 11:04:34* Test Item Value Reference Range Interpretation Comme nts NA (test code = 2315810312) 140 mmol/L 135-145 K (test code = 2371552953) 3.6 mmol/L 3.5-5.0 CL (test code = 3009266059) 111 mmol/L 98-108 H CO2 TOTAL (test code = 5878716880) 22 mmol/L 23-31 L AGAP (test code = 8369850025) 2-16 BUN (test code = 6057404420) 10 mg/dL 7-23 GLUCOSE (test code = 1803885362) 104 mg/dL 70-110 CREATININE (test code = 6144503543) 0.70 mg/dL 0.50-1.04 CALCIUM (test code = 9418072421) 8.7 mg/dL 8.6-10.6 eGFR (test code = 6482090217) mL/min/1.73m2 DARWIN (test code = DARWIN) Association [...] imaging tests). Lab Interpretation (test code = 31348-7) Abnormal [facility] with Iafvyhlnknom0460-89-25 10:46:50* Test Item Value Reference Range Interpretation Comme nts WBC (test code = 6690-2) See_Comment [Addoway] The system which generated this result transmitted reference range: 4.30 - 11.10 10*3/?L. The reference range was not used to interpret this result as normal/abnormal. RBC (test code = 789-8) See_Comment [Addoway] The system which generated this result transmitted [...] 33.5 g/dL 31.6-35.1 RDW-SD (test code = 96640-1) 42.0 fL 39.0-49.9 RDW-CV (test code = 788-0) 14.1 % 12.0-15.5 PLT (test code = 777-3) See_Comment [Automated InteKrina Engiver] The system which generated this result transmitted reference range: 166 - 358 10*3/?L. The reference range was not used to interpret this result as normal/abnormal. MPV (test code = 40254-3) 10.0 fL 9.5-12.9 NRBC/100 WBC (test code = 8401827838) See_Comment [Automated [employer]] The system which generated this result transmitted reference range: 0.0 - 10.0 /100 WBCs. The reference range was not used to interpret this result as normal/abnormal. NRBC x10^3 (test code = 7270244391) <0.01 See_Comment [Automated [employer]] The system which generated this result transmitted reference range: 10*3/?L. The reference range was not used to interpret this result as normal/abnormal. GRAN MAT (NEUT) % (test code = 770-8) 59.1 % IMM GRAN % (test code = 7177127199) 0.70 % LYMPH % (test code = 736-9) 28.2 % MONO % (test code = 5905-5) 8.5 % EOS % (test code = 713-8) 3.0 % BASO % (test code = 706-2) 0.5 % GRAN MAT x10^3(ANC) (test code = 8256515977) 3.61 10*3/uL 1.88-7.09 IMM GRAN x10^3 (test code = 1113711939) 0.04 10*3/uL 0.00-0.06 LYMPH x10^3 (test code = 731-0) 1.72 10*3/uL 1.32-3.29 MONO x10^3 (test code = 742-7) 0.52 10*3/uL 0.33-0.92 EOS x10^3 (test code = 711-2) 0.18 10*3/uL 0.03-0.39 BASO x10^3 (test code = 704-7) 0.03 10*3/uL 0.01-0.07 [facility] CenterTrop[facility] [id number] 05:54:48* Test Item Value Reference Range Interpretation Comments TROPONIN I (test code = 0592430560) 0.002 ng/mL See_Comment [Automated message] The system [...] of biotin. Lab Interpretation (test code = 38384-1) Normal [facility] CenterThyroid Stimulating Hormone (TSH)2021-04-08 00:51:16* Test Item Value Reference Range Interpretation Comme nts TSH (test code = 8743449208) See_Comment [Automated InteKrina ge] The system which generated this result transmitted reference range: 0.45 - 4.70 mIU/L. The reference range was not used to interpret this result as normal/abnormal. Lab Interpretation (test code = 85106-8) Normal [facility] CenterGlycosylated Hemoglobin (A1C)2021-04-08 00:26:53* Test Item Value Reference Range Interpretation Comme nts HGB A1C (test code = 4548-4) 5.5 % 4.0-5.7 DARWIN (test code = DARWIN) Reference RangesNormal: <5.7%Prediabetes: 5.7 - 6.4%Diabetes: > 6.5% Lab Interpretation (test code = 88457-2) Normal [facility] CenterLipid Panel (Total Cholesterol, Triglycerides, HDL)2021-04-08 00:20:12* Test Item Value Reference Range Interpretation Comme nts CHOL (test code = 0288626873) 223 mg/dL 120-200 H HDL (test code = 3109667095) 35 mg/dL >50 L HDLC RATIO (test code = 8216495684) See_Comment H [Automated Inte[employer]rina Engiver] The system which generated this result transmitted reference range: <=4.5. The reference range was not used to interpret this result as normal/abnormal. TRIG (test code = 2442975915) 223 mg/dL 30-170 H LDL CHOL (test code = 68094-0) 143 mg/dL See_Comment [Automated [employer]rina Engiver] The system which generated this result transmitted reference range: <=160. The reference range was not used to interpret this result as normal/abnormal. VLDL (test code = 7459373937) 45 mg/dL 5-60 Lab Interpretation (test code = 57881-8) Abnormal [facility] CenterMagnesium Qkxbp6474-53-85 00:20:07* Test Item Value Reference Range Interpretation Comme nts MAGNESIUM (test code = 0616157558) 1.7 mg/dL 1.7-2.4 Lab Interpretation (test cod e = 61914-9) [facility] CenterCOMP. METABOLIC PANEL (53116)2021-04-07 23:04:13* Test Item Value Reference Range Interpretation Comme nts NA (test code = 2063240042) 139 mmol/L 135-145 K (test code = 0361304580) 3.4 mmol/L 3.5-5.0 L CL (test code = 5527960103) 109 mmol/L 98-108 H CO2 TOTAL (test code = 7003068372) 22 mmol/L 23-31 L AGAP (test code = 2737078722) 2-16 BUN (test code = 6174344422) 10 mg/dL 7-23 GLUCOSE (test code = 6262566965) 97 mg/dL 70-110 CREATININE (test code = 1316895553) 0.84 mg/dL 0.50-1.04 TOTAL BILI (test code = 2184943718) 0.3 mg/dL 0.1-1.1 CALCIUM (test code = 3151521751) 9.2 mg/dL 8.6-10.6 T PROTEIN (test code = 5580960306) 6.6 g/dL 6.3-8.2 ALBUMIN (test code = 3325336276) 3.8 g/dL 3.5-5.0 ALK PHOS (test code = 4150191168) 69 U/L 34-122 ALTv (test code = 1742-6) 18 U/L 5-35 AST(SGOT) (test code = 8424972265) 19 U/L 13-40 eGFR (test code = 8425773359) mL/min/1.73m2 DARWIN (test code = DARWIN) Association [...] imaging tests). Lab Interpretation (test code = 64672-1) [facility]normal [facility] CenterTROPONIN [id number] 22:33:04* Test Item Value Reference Range Interpretation Comments TROPONIN I (test code = 3076770813) 0.001 ng/mL See_Comment [Automated message] The system [...] of biotin. Lab Interpretation (test code = 10471-4) Normal [facility] CenterN-TERMINAL [id number] 22:30:05* Test Item Value Reference Range Interpretation Comme [facility] NT-proBNP (test code = 5225856829) 352 pg/mL See_Comment H [Automated message] The system which generated this result transmitted reference range: <=125. The reference range was not used to interpret this result as normal/abnormal. DARWIN (test code = DARWIN) Biotin has been reported to cause a negative bias, interpret results relative to patient's use of biotin. Lab Interpretation (test code = 35197-6) Abnormal [facility] CenterACTIVATED PARTIAL THRMPLAS [id number] 22:28:48* Test Item Value Reference Range Interpretation Comme nts APTT Patient (test code = 3173-2) See_Comment [Automated message] The system which generated this result transmitted reference range: 23 - 38 Seconds. The reference range was not used to interpret this result as normal/abnormal. DARWIN (test code = DARWIN) The [facility] patient population mean normal value for aPTT is 30 seconds. Lab Interpretation (test code = 36650-6) Normal [facility] CenterPROTHROMBIN TIME / [id number] 22:26:44* Test Item Value Reference Range Interpretation Comme nts PROTIME PATIENT (test code = 5964-2) See_Comment [Automated [employer] Engiver] The system which generated this result transmitted reference range: 12.0 - 14.7 Seconds. The reference range was not used to interpret this result as normal/abnormal. INR (test code = 6301-6) Normal INR <1.1; Warfarin Therapeutic range 2.0 to 3.0 or 2.5 to 3.5, depending upon the indications. Lab Interpretation (test code = 22762-5) [facility] CenterLIPASE2021-10-01 22:20:05* Test Item Value Reference Range Interpretation Comme nts LIPASE (test code = 7253812981) 66 U/L 0-220 Lab Interpretation (test cod e = 59060-2) Normal [facility] CenterCBC WITH [id number] 22:07:01* Test Item Value Reference Range Interpretation Comme nts WBC (test code = 6690-2) See_Comment [Automated [employer] Engiver] The system which generated this result transmitted reference range: 4.30 - 11.10 10*3/?L. The reference range was not used to interpret this result as normal/abnormal. RBC (test code = 789-8) See_Comment [Automated InteKrina ge] The system which generated this result [...] 33.2 g/dL 31.6-35.1 RDW-SD (test code = 41478-8) 41.6 fL 39.0-49.9 RDW-CV (test code = 788-0) 14.1 % 12.0-15.5 PLT (test code = 777-3) See_Comment [Automated messa ge] The system which generated this result transmitted reference range: 166 - 358 10*3/?L. The reference range was not used to interpret this result as normal/abnormal. MPV (test code = 14170-0) 9.2 fL 9.5-12.9 L NRBC/100 WBC (test code = 4878761373) See_Comment [Automated Zounds ssage] The system which generated this result transmitted reference range: 0.0 - 10.0 /100 WBCs. The reference range was not used to interpret this result as normal/abnormal. NRBC x10^3 (test code = 8877304108) <0.01 See_Comment [Automated messa ge] The system which generated this result transmitted reference range: 10*3/?L. The reference range was not used to interpret this result as normal/abnormal. GRAN MAT (NEUT) % (test code = 770-8) 61.6 % IMM GRAN % (test code = 4419563331) 0.60 % LYMPH % (test code = 736-9) 28.7 % MONO % (test code = 5905-5) 4.9 % EOS % (test code = 713-8) 3.7 % BASO % (test code = 706-2) 0.5 % GRAN MAT x10^3(ANC) (test code = 3047088897) 6.24 10*3/uL 1.88-7.09 IMM GRAN x10^3 (test code = 5969291777) 0.06 10*3/uL 0.00-0.06 LYMPH x10^3 (test code = 731-0) 2.90 10*3/uL 1.32-3.29 MONO x10^3 (test code = 742-7) 0.50 10*3/uL 0.33-0.92 EOS x10^3 (test code = 711-2) 0.37 10*3/uL 0.03-0.39 BASO x10^3 (test code = 704-7) 0.05 10*3/uL 0.01-0.07 Lab Interpretation (test code = 02340-4) [facility] CenterURINALYSIS2021-07-08 08:49:55* Test Item Value Reference Range Interpretation Comme nts APPEARANCE (test code = 4779567773) Cloudy Clear A COLOR (test code = 1740091148) Yellow Yellow PH (test code = 9640296477) 4.8-8.0 SP GRAVITY (test code = 9795161017) 1.003-1.030 GLU U QUAL (test code = 6003660109) Normal Normal BLOOD (test code = 5149425255) Negative Negative KETONES (test code = 1725522129) Negative Negative PROTEIN (test code = 2887-8) Negative Negative UROBILIN (test code = 4582205000) Normal Normal BILIRUBIN (test code = 6817150522) 2 mg/dL Negative A NITRITE (test code = 2749430876) Negative Negative LEUK MARC (test code = 9833924541) 75/uL Negative A RBC/HPF (test code = 7929375235) See_Comment H [Automated messa ge] The system which generated this result transmitted reference range: 0 - 3 HPF. The reference range was not used to interpret this result as normal/abnormal. WBC/HPF (test code = 9892473153) See_Comment H [Automated messa ge] The system which generated this result transmitted reference range: 0 - 5 HPF. The reference range was not used to interpret this result as normal/abnormal. BACTERIA (test code = 2486320996) Moderate Negative A MUCOUS (test code = 7116263187) Slight Negative LPF A SQ EPITH (test code = 7916388107) HPF YEAST BUD (test code = 2171717400) See_Comment H [Automated messa ge] The system which generated this result transmitted reference range: <=1 HPF. The reference range was not used to interpret this result as normal/abnormal. Ictotest (test code = 9642073768) Negative Lab Interpretation (test code = 83758-4) [facility]normal [facility] CenterCOMP. METABOLIC PANEL (12061)2021-01-12 08:49:44* Test Item Value Reference Range Interpretation Comme nts NA (test code = 5917157739) 137 mmol/L 135-145 K (test code = 5591313636) 4.6 mmol/L 3.5-5.0 CL (test code = 0034901664) 108 mmol/L 98-108 CO2 TOTAL (test code = 5756360598) 21 mmol/L 23-31 L AGAP (test code = 3017490748) 2-16 BUN (test code = 7042412813) 19 mg/dL 7-23 GLUCOSE (test code = 7041139852) 107 mg/dL 70-110 CREATININE (test code = 2607982928) 0.63 mg/dL 0.50-1.04 TOTAL BILI (test code = 5600925255) 0.4 mg/dL 0.1-1.1 CALCIUM (test code = 3988597092) 9.2 mg/dL 8.6-10.6 T PROTEIN (test code = 6785488707) 7.4 g/dL 6.3-8.2 ALBUMIN (test code = 7519259145) 4.2 g/dL 3.5-5.0 ALK PHOS (test code = 8680281507) 179 U/L 34-122 H ALTv (test code = 1742-6) 113 U/L 5-35 H AST(SGOT) (test code = 5309798927) 38 U/L 13-40 eGFR (test code = 8163445060) mL/min/1.73m2 DARWIN (test code = DARWIN) Association [...] imaging tests). Lab Interpretation (test code = 98040-5) Abnormal [facility] WITH [id number] 08:11:02* Test Item Value Reference Range Interpretation Comme nts WBC (test code = 6690-2) See_Comment H [Automated [employer]] The system which generated this result transmitted reference range: 4.30 - 11.10 10*3/?L. The reference range was not used to interpret this result as normal/abnormal. RBC (test code = 789-8) See_Comment [Automated [employer]] The system which generated this result transmitted [...] 33.3 g/dL 31.6-35.1 RDW-SD (test code = 11272-3) 41.6 fL 39.0-49.9 RDW-CV (test code = 788-0) 14.0 % 12.0-15.5 PLT (test code = 777-3) See_Comment [Automated [employer]] The system which generated this result transmitted reference range: 166 - 358 10*3/?L. The reference range was not used to interpret this result as normal/abnormal. MPV (test code = 03188-5) 9.5 fL 9.5-12.9 NRBC/100 WBC (test code = 8118813585) See_Comment [Automated me ssage] The system which generated this result transmitted reference range: 0.0 - 10.0 /100 WBCs. The reference range was not used to interpret this result as normal/abnormal. NRBC x10^3 (test code = 1595790987) <0.01 See_Comment [Automated messa ge] The system which generated this result transmitted reference range: 10*3/?L. The reference range was not used to interpret this result as normal/abnormal. GRAN MAT (NEUT) % (test code = 770-8) 68.0 % IMM GRAN % (test code = 0314472057) 0.80 % LYMPH % (test code = 736-9) 23.6 % MONO % (test code = 5905-5) 5.1 % EOS % (test code = 713-8) 2.1 % BASO % (test code = 706-2) 0.4 % GRAN MAT x10^3(ANC) (test code = 5909812317) 8.86 10*3/uL 1.88-7.09 H IMM GRAN x10^3 (test code = 6225793932) 0.11 10*3/uL 0.00-0.06 H LYMPH x10^3 (test code = 731-0) 3.07 10*3/uL 1.32-3.29 MONO x10^3 (test code = 742-7) 0.66 10*3/uL 0.33-0.92 EOS x10^3 (test code = 711-2) 0.27 10*3/uL 0.03-0.39 BASO x10^3 (test code = 704-7) 0.05 10*3/uL 0.01-0.07 Lab Interpretation (test code = 15204-6) Abnormal [facility] HYYM7225-10-87 08:02:00* Test Item Value Reference Range Interpretation Comme nts POCT PREG (test code = 1605) negative On board controls acceptable with C Line (test code = 3574) positive POCT PREG LOT # (test code = 3575) [id number] POCT PREG TEST DATE ( test code = 3576) 07/07/2022 Lab Interpretation (test cod e = 79294-2) [facility] [id number] 01:55:05* Test Item Value Reference Range Interpretation Comme nts TROPONIN I (test code = 7265091024) 0.000 ng/mL See_Comment [Automated message] The system [...] biotin. ? Lab Interpretation (test code = 09634-1) Normal [facility] 1 [id number] 23:41:46No radiographic evidence of an acute cardiopulmonary process. RL: 2109AFC: 96527 EXAM: XR CHEST 1 VW ORDERING PROVIDER: [...] evidence of an acute cardiopulmonary process.RL: 2109AFC: 02970 [facility] T[facility] I9422-50-57 23:07:21* Test Item Value Reference Range Interpretation Comme nts TROPONIN I (test code = 6969305695) 0.000 ng/mL See_Comment [Automated message] The system [...] biotin. ? Lab Interpretation (test code = 60354-6) [facility] VNM-ZOM3319-90-05 23:04:20* Test Item Value Reference Range Interpretation Comme nts NT-proBNP (test code = 6840589756) 14 pg/mL See_Comment [Automated message] The system which generated this result transmitted reference range: <=125. The reference range was not used to interpret this result as normal/abnormal. DARWIN (test code = DARWIN) Biotin has been reported to cause a negative bias, interpret results relative to patient's use of biotin. Lab Interpretation (test code = 90916-1) [facility] Center[facility] (ALB, T.PRO, BILI T, BU/BC, ALT, AST, ALK PHOS)2020-12-10 22:58:16* Test Item Value Reference Range Interpretation Comme nts TOTAL BILI (test code = 4604625277) 0.5 mg/dL 0.1-1.1 BILI UNCON (test code = 3194328678) 0.3 mg/dL 0.1-1.1 BILI CONJ (test code = 0193791916) 0.0 mg/dL 0.0-0.3 T PROTEIN (test code = 4439509924) 8.1 g/dL 6.3-8.2 ALBUMIN (test code = 4272530294) 4.7 g/dL 3.5-5.0 ALK PHOS (test code = 6184727177) 104 U/L 34-122 ALTv (test code = 1742-6) 18 U/L 5-35 AST(SGOT) (test code = 1416818844) 23 U/L 13-40 Lab Interpretation (test cod e = 03226-8) [facility] Center[facility] (NA, K, CL, CO2, GLUCOSE, BUN, CREATININE, CA)2020-12-10 22:57:56* Test Item Value Reference Range Interpretation Comme nts NA (test code = 8845621050) 135 mmol/L 135-145 K (test code = 8360365821) 3.7 mmol/L 3.5-5.0 CL (test code = 9434644762) 105 mmol/L 98-108 CO2 TOTAL (test code = 8116567249) 18 mmol/L 23-31 L AGAP (test code = 1124027360) 2-16 BUN (test code = 3702783215) 14 mg/dL 7-23 GLUCOSE (test code = 1555738173) 108 mg/dL 70-110 CREATININE (test code = 9580315678) 0.56 mg/dL 0.50-1.04 CALCIUM (test code = 1264175030) 9.8 mg/dL 8.6-10.6 eGFR (test code = 5207320169) mL/min/1.73m2 DARWIN (test code = DARWIN) Association [...] imaging tests). Lab Interpretation (test code = 41660-5) [facility]normal [facility] CenterLipase Qrcba7126-95-92 22:57:56* Test Item Value Reference Range Interpretation Comme nts LIPASE (test code = 0407334760) 122 U/L 0-220 Lab Interpretation (test cod e = 32246-4) Normal [facility] CenterD-QVDSD6923-22-40 22:52:34* Test Item Value Reference Range Interpretation Comments D-DIMER (test code = 5324514910) See_Comment [Automated message] The system which generated [...] a diagnosis. Lab Interpretation (test code = 33974-8) [facility] CenterUrinalysis2021-06-05 22:52:29* Test Item Value Reference Range Interpretation Comme nts APPEARANCE (test code = 4118335406) Hazy Clear A COLOR (test code = 7661011919) Yellow Yellow PH (test code = 7493712287) 4.8-8.0 SP GRAVITY (test code = 6805047669) 1.003-1.030 GLU U QUAL (test code = 7107694713) Normal Normal BLOOD (test code = 2364411243) Negative Negative KETONES (test code = 0977740017) Negative Negative PROTEIN (test code = 2887-8) Negative Negative UROBILIN (test code = 0106185782) Normal Normal BILIRUBIN (test code = 2032079089) 2 mg/dL Negative A NITRITE (test code = 1693559294) Negative Negative LEUK MARC (test code = 0581646820) 25/uL Negative A RBC/HPF (test code = 7123219339) See_Comment [Automated [employer]] The system which generated this result transmitted reference range: 0 - 3 HPF. The reference range was not used to interpret this result as normal/abnormal. WBC/HPF (test code = 0659272746) See_Comment [Addoway] The system which generated this result transmitted reference range: 0 - 5 HPF. The reference range was not used to interpret this result as normal/abnormal. BACTERIA (test code = 1962273503) Few Negative A MUCOUS (test code = 8805920828) Slight Negative LPF A SQ EPITH (test code = 2799104175) HPF Lab Interpretation (test code = 46579-1) Abnormal [facility] with Gofkbwzmhzys3178-26-85 22:45:56* Test Item Value Reference Range Interpretation [...] 33.5 g/dL 31.6-35.1 RDW-SD (test code = 00323-2) 40.5 fL 39.0-49.9 RDW-CV (test code = 788-0) 13.3 % 12.0-15.5 PLT (test code = 777-3) See_Comment H [Automated message] The system which generated this result transmitted reference range: 166 - 358 10*3/?L. The reference range was not used to interpret this result as normal/abnormal. MPV (test code = 10828-5) 9.2 fL 9.5-12.9 L NRBC/100 WBC (test code = 2417993274) See_Comment [Automated message] The system which generated this result transmitted reference range: 0.0 - 10.0 /100 WBCs. The reference range was not used to interpret this result as normal/abnormal. NRBC x10^3 (test code = 2530071512) <0.01 See_Comment [Automated message] The system which generated this result transmitted reference range: 10*3/?L. The reference range was not used to interpret this result as normal/abnormal. GRAN MAT (NEUT) % (test code = 770-8) 73.4 % IMM GRAN % (test code = 0294621783) 0.50 % LYMPH % (test code = 736-9) 17.5 % MONO % (test code = 5905-5) 6.5 % EOS % (test code = 713-8) 1.6 % BASO % (test code = 706-2) 0.5 % GRAN MAT x10^3(ANC) (test code = 5004343388) 10.21 10*3/uL 1.88-7.09 H IMM GRAN x10^3 (test code = 5722364503) 0.07 10*3/uL 0.00-0.06 H LYMPH x10^3 (test code = 731-0) 2.44 10*3/uL 1.32-3.29 MONO x10^3 (test code = 742-7) 0.90 10*3/uL 0.33-0.92 EOS x10^3 (test code = 711-2) 0.22 10*3/uL 0.03-0.39 BASO x10^3 (test code = 704-7) 0.07 10*3/uL 0.01-0.07 Lab Interpretation (test code = 89167-0) [facility]normal [facility] CenterPOCT Kmbb0542-63-05 22:32:00* Test Item Value Reference Range Interpretation Comme nts POCT PREG (test code = 1605) negative On board controls acceptable with C Line (test code = 3574) present POCT PREG LOT # (test code = 3575) [id number] POCT PREG TEST DATE ( test code = 3576) 06/06/2022 Lab Interpretation (test cod e = 41657-4) [facility] CenterUrinalysis2021-05-30 21:34:43* Test Item Value Reference Range Interpretation Comme nts APPEARANCE (test code = 6855573445) Clear Clear COLOR (test code = 1389929791) Yellow Yellow PH (test code = 5182576306) 4.8-8.0 SP GRAVITY (test code = 4692053395) 1.003-1.030 GLU U QUAL (test code = 5160321919) Normal Normal BLOOD (test code = 5560333595) Negative Negative KETONES (test code = 2825334301) Negative Negative PROTEIN (test code = 2887-8) Negative Negative UROBILIN (test code = 2857445558) Normal Normal BILIRUBIN (test code = 6615385186) Negative Negative NITRITE (test code = 8258350319) Negative Negative LEUK MARC (test code = 8509355643) Negative Negative RBC/HPF (test code = 8715323370) See_Comment [Automated messa ge] The system which generated this result transmitted reference range: 0 - 3 HPF. The reference range was not used to interpret this result as normal/abnormal. WBC/HPF (test code = 4626852443) <1 See_Comment [Automated messa ge] The system which generated this result transmitted reference range: 0 - 5 HPF. The reference range was not used to interpret this result as normal/abnormal. BACTERIA (test code = 4542003432) Negative Negative MUCOUS (test code = 8971361815) Slight Negative LPF A SQ EPITH (test code = 0417609235) HPF Lab Interpretation (test code = 24604-6) [facility] CenterPOCT Pfqb2438-99-39 21:18:00* Test Item Value Reference Range Interpretation Comme nts POCT PREG (test code = 1605) negative On board controls acceptable with C Line (test code = 3574) present POCT PREG LOT # (test code = 3575) [id number] POCT PREG TEST DATE ( test code = 3576) 06/06/2022 Lab Interpretation (test cod e = 10282-5) [facility] CenterXR ANKLE 3+ VW IXSH8325-95-14 21:11:00No acute bony abnormality. Preliminary Report Dictated [...] this study and agree with the abovereport.[facility] CenterJoan O3717-26-04 20:59:44* Test Item Value Reference Range Interpretation Comme nts TROPONIN I (test code = 5740505212) 0.000 ng/mL See_Comment [Automated message] The system [...] biotin. ? Lab Interpretation (test code = 03494-2) Normal [facility] CenterLipase Qwuhy2870-50-90 20:48:20* Test Item Value Reference Range Interpretation Comme nts LIPASE (test code = 3884635212) 96 U/L 0-220 Lab Interpretation (test cod e = 86210-8) [facility] (NA, K, CL, CO2, GLUCOSE, BUN, CREATININE, CA)2020-12-04 20:48:20* Test Item Value Reference Range Interpretation Comme nts NA (test code = 8376934066) 138 mmol/L 135-145 K (test code = 5775794306) 3.8 mmol/L 3.5-5.0 CL (test code = 7554479205) 108 mmol/L 98-108 CO2 TOTAL (test code = 4787138416) 21 mmol/L 23-31 L AGAP (test code = 6920674080) 2-16 BUN (test code = 5624060730) 13 mg/dL 7-23 GLUCOSE (test code = 4619913954) 107 mg/dL 70-110 CREATININE (test code = 3976365915) 0.66 mg/dL 0.50-1.04 CALCIUM (test code = 1820553600) 9.3 mg/dL 8.6-10.6 eGFR (test code = 1403488638) mL/min/1.73m2 DARWIN (test code = DARWIN) Association [...] imaging tests). Lab Interpretation (test code = 14683-4) [facility]normal [facility] CenterHep[facility] Function Panel (ALB, T.PRO, BILI T, BU/BC, ALT, AST, ALK PHOS)2020-12-04 20:48:20* Test Item Value Reference Range Interpretation Comme nts TOTAL BILI (test code = 3838918474) 0.3 mg/dL 0.1-1.1 BILI UNCON (test code = 2252731670) 0.1 mg/dL 0.1-1.1 BILI CONJ (test code = 5028587464) 0.0 mg/dL 0.0-0.3 T PROTEIN (test code = 2919096197) 7.0 g/dL 6.3-8.2 ALBUMIN (test code = 6236688715) 4.0 g/dL 3.5-5.0 ALK PHOS (test code = 4657973266) 114 U/L 34-122 ALTv (test code = 1742-6) 30 U/L 5-35 AST(SGOT) (test code = 5918961430) 23 U/L 13-40 Lab Interpretation (test cod e = 74547-8) Normal [facility] CenterCBC with Oltldobvxhbj1561-40-68 20:35:01* Test Item Value Reference Range Interpretation Comme nts WBC (test code = 6690-2) See_Comment [Automated [employer]] The system which generated this result transmitted reference range: 4.30 - 11.10 10*3/?L. The reference range was not used to interpret this result as normal/abnormal. RBC (test code = 789-8) See_Comment [Automated InteKrina Engiver] The system which generated this result transmitted [...] 34.0 g/dL 31.6-35.1 RDW-SD (test code = 90664-6) 39.8 fL 39.0-49.9 RDW-CV (test code = 788-0) 12.9 % 12.0-15.5 PLT (test code = 777-3) See_Comment [Automated messa ge] The system which generated this result transmitted reference range: 166 - 358 10*3/?L. The reference range was not used to interpret this result as normal/abnormal. MPV (test code = 84336-1) 9.3 fL 9.5-12.9 L NRBC/100 WBC (test code = 4977305428) See_Comment [Automated Zounds ssage] The system which generated this result transmitted reference range: 0.0 - 10.0 /100 WBCs. The reference range was not used to interpret this result as normal/abnormal. NRBC x10^3 (test code = 3299820900) <0.01 See_Comment [Automated InteKrina ge] The system which generated this result transmitted reference range: 10*3/?L. The reference range was not used to interpret this result as normal/abnormal. GRAN MAT (NEUT) % (test code = 770-8) 71.5 % IMM GRAN % (test code = 8375204843) 0.30 % LYMPH % (test code = 736-9) 19.8 % MONO % (test code = 5905-5) 6.2 % EOS % (test code = 713-8) 1.8 % BASO % (test code = 706-2) 0.4 % GRAN MAT x10^3(ANC) (test code = 1537740183) 6.79 10*3/uL 1.88-7.09 IMM GRAN x10^3 (test code = 6515091079) 0.03 10*3/uL 0.00-0.06 LYMPH x10^3 (test code = 731-0) 1.88 10*3/uL 1.32-3.29 MONO x10^3 (test code = 742-7) 0.59 10*3/uL 0.33-0.92 EOS x10^3 (test code = 711-2) 0.17 10*3/uL 0.03-0.39 BASO x10^3 (test code = 704-7) 0.04 10*3/uL 0.01-0.07 Lab Interpretation (test code = 12113-6) [facility]normal [facility] CenterDR[facility]CREEN ER (URINE)2020-11-04 02:54:38* Test Item Value Reference Range Interpretation Comme nts AMPHET (test code = 6654311762) Negative Negative Cocaine Metabolite (test code = 9238914783) Negative Negative OPIATES (test code = 9617645196) Presumptive Positive Negative A THC (test code = 2493658508) Negative Negative DARWIN (test code = DARWIN) Urine Drug Cutoff Ranges Amphetamine: ? 1,000 ng/mLCocaine: ? 150 ng/mLOpiates: ? 300 ng/mLCannabinoids: ?50 ng/mL The results are to be used only for medical (i.e., treatment) purposes. Unconfirmed screening results must not be used for non-medical purposes (e.g., employment testing, legal testing). Lab Interpretation (test code = 28521-4) Abnormal [facility] CenterTROPONIN F1811-26-08 02:51:11* Test Item Value Reference Range Interpretation Comme nts TROPONIN I (test code = 9442305874) 0.001 ng/mL See_Comment [Automated message] The system [...] biotin. ? Lab Interpretation (test code = 30634-6) Normal [facility] CenteraPTT2021-04-30 02:41:10* Test Item Value Reference Range Interpretation Comme nts APTT Patient (test code = 3173-2) See_Comment [Automated message] The system which generated this result transmitted reference range: 23 - 38 Seconds. The reference range was not used to interpret this result as normal/abnormal. DARWIN (test code = DARWIN) The [facility] patient population mean normal value for aPTT is 30 seconds. Lab Interpretation (test code = 58832-3) Normal [facility] CenterURINALYSIS2021-04-30 02:40:40* Test Item Value Reference Range Interpretation Comme nts APPEARANCE (test code = 4374110618) Clear Clear COLOR (test code = 4939867802) Yellow Yellow PH (test code = 8822204454) 4.8-8.0 SP GRAVITY (test code = 1335363010) 1.003-1.030 GLU U QUAL (test code = 2650626318) Normal Normal BLOOD (test code = 8165197685) Negative Negative KETONES (test code = 8249098017) Negative Negative PROTEIN (test code = 2887-8) Negative Negative UROBILIN (test code = 7478475186) Normal Normal BILIRUBIN (test code = 3105689406) Negative Negative NITRITE (test code = 3084206592) Negative Negative LEUK MARC (test code = 8848026222) Negative Negative RBC/HPF (test code = 9921113541) <1 See_Comment [Automated messa ge] The system which generated this result transmitted reference range: 0 - 3 HPF. The reference range was not used to interpret this result as normal/abnormal. WBC/HPF (test code = 8011072281) <1 See_Comment [Automated InteKrina ge] The system which generated this result transmitted reference range: 0 - 5 HPF. The reference range was not used to interpret this result as normal/abnormal. BACTERIA (test code = 2166395358) Negative Negative MUCOUS (test code = 7128878276) Slight Negative LPF A SQ EPITH (test code = 0582325342) HPF Lab Interpretation (test code = 15317-1) Abnormal [facility]. METABOLIC PANEL (70774)2020-11-04 02:40:09* Test Item Value Reference Range Interpretation Comme nts NA (test code = 7324003854) 141 mmol/L 135-145 K (test code = 3325040864) 4.1 mmol/L 3.5-5.0 CL (test code = 3590590400) 110 mmol/L 98-108 H CO2 TOTAL (test code = 8953923625) 22 mmol/L 23-31 L AGAP (test code = 5446117150) 2-16 BUN (test code = 5016591841) 15 mg/dL 7-23 GLUCOSE (test code = 4178255016) 115 mg/dL 70-110 H CREATININE (test code = 1857839304) 0.69 mg/dL 0.50-1.04 TOTAL BILI (test code = 7676672426) 0.2 mg/dL 0.1-1.1 CALCIUM (test code = 3701844953) 9.2 mg/dL 8.6-10.6 T PROTEIN (test code = 3692504009) 6.8 g/dL 6.3-8.2 ALBUMIN (test code = 4654373457) 4.1 g/dL 3.5-5.0 ALK PHOS (test code = 8044716670) 69 U/L 34-122 ALTv (test code = 1742-6) 20 U/L 5-35 AST(SGOT) (test code = 8813399610) 23 U/L 13-40 eGFR (test code = 2554125034) mL/min/1.73m2 DARWIN (test code = DARWIN) Association [...] imaging tests). Lab Interpretation (test code = 89155-7) Abnormal [facility] CenterLIPASE, XHNTL9983-03-29 02:39:49* Test Item Value Reference Range Interpretation Comme [facility] LIPASE (test code = 6332924667) 117 U/L 0-220 Lab Interpretation (test cod e = 11526-5) Normal [facility] CenterPROTHROMBIN TIME / [id number] 02:39:08* Test Item Value Reference Range Interpretation Comme [facility] PROTIME PATIENT (test code = 5964-2) See_Comment [Automated [employer]] The system which generated this result transmitted reference range: 12.0 - 14.7 Seconds. The reference range was not used to interpret this result as normal/abnormal. INR (test code = 6301-6) Normal INR <1.1; Warfarin Therapeutic range 2.0 to 3.0 or 2.5 to 3.5, depending upon the indications. Lab Interpretation (test code = 99819-6) Normal [facility] WITH DBUA6628-63-73 02:30:11* Test Item Value Reference Range Interpretation [...] 32.8 g/dL 31.6-35.1 RDW-SD (test code = 44807-2) 44.1 fL 39.0-49.9 RDW-CV (test code = 788-0) 13.8 % 12.0-15.5 PLT (test code = 777-3) See_Comment [Automated messa ge] The system which generated this result transmitted reference range: 166 - 358 10*3/?L. The reference range was not used to interpret this result as normal/abnormal. MPV (test code = 39921-7) 9.6 fL 9.5-12.9 NRBC/100 WBC (test code = 0945681667) See_Comment [Automated Zounds ssage] The system which generated this result transmitted reference range: 0.0 - 10.0 /100 WBCs. The reference range was not used to interpret this result as normal/abnormal. NRBC x10^3 (test code = 8168623833) <0.01 See_Comment [Automated messa ge] The system which generated this result transmitted reference range: 10*3/?L. The reference range was not used to interpret this result as normal/abnormal. GRAN MAT (NEUT) % (test code = 770-8) 65.9 % IMM GRAN % (test code = 1406858558) 0.70 % LYMPH % (test code = 736-9) 25.9 % MONO % (test code = 5905-5) 5.1 % EOS % (test code = 713-8) 2.0 % BASO % (test code = 706-2) 0.4 % GRAN MAT x10^3(ANC) (test code = 9049023625) 8.82 10*3/uL 1.88-7.09 H IMM GRAN x10^3 (test code = 7954862247) 0.09 10*3/uL 0.00-0.06 H LYMPH x10^3 (test code = 731-0) 3.46 10*3/uL 1.32-3.29 H MONO x10^3 (test code = 742-7) 0.68 10*3/uL 0.33-0.92 EOS x10^3 (test code = 711-2) 0.27 10*3/uL 0.03-0.39 BASO x10^3 (test code = 704-7) 0.05 10*3/uL 0.01-0.07 Lab Interpretation (test code = 20914-2) [facility]normal [facility] CenterCOVID-19 (ID NOW RAPID TESTING)2020-09-17 16:56:05* Test Item Value Reference Range Interpretation Comme nts SARS-CoV-2 Rapid ID NOW (test code = 31572-7) Not Detected Not Detected DARWIN (test code = DARWIN) ID NOW COVID-19 As say is an isothermal nucleic acid amplification test intended for the qualitative detection of nucleic acid from SARS-CoV-2 viral RNA in nasopharyngeal (THERAPEUTIC SUPPORT STAFF) specimens. It is used under Emergency Use [...] clinically indicated. Lab Interpretation (test code = 67328-8) Normal [facility] CenterRAPID STREP SCREEN FOR GROUP F5351-18-58 16:54:09* Test Item Value Reference Range Interpretation Comme nts Streptococcus pyogenes (grou p A) antigen (test code = 48732-3) Negative Negative Lab Interpretation (test cod e = 71418-6) Normal [facility] CenterXR [facility] 3+ VW VVAU3948-56-21 07:29:48 Impression: No acute fracture or dislocation. RL: 2824AFC: 38679 End of Report Exam: Left Hand, 09/07/2020 [...] swelling.IMPRESSIONImpression: No acute fracture or dislocation.RL: 2824AFC: 89787Yyx of Report [facility] 2 VW MCKN1431-80-22 07:28:55No acute abnormality of the left forearm. RL: 6200AFC: 97213 Patient name: CHARITY MONROYOB: 1980 40 years [...] acute abnormality of the left forearm.RL: 6200AF: 52474 [facility] GwffkoLlzclzsrni4057-10-52 09:06:00* Test Item Value Reference Range Interpretation Comme nts APPEARANCE (test code = 9404774102) Hazy Clear A COLOR (test code = 8356252637) Yellow Yellow PH (test code = 3050587590) 4.8-8.0 SP GRAVITY (test code = 7837035274) 1.003-1.030 GLU U QUAL (test code = 9512889150) Normal Normal BLOOD (test code = 4209469872) Negative Negative KETONES (test code = 0766768807) Negative Negative PROTEIN (test code = 2887-8) Negative Negative UROBILIN (test code = 1720399902) Normal Normal BILIRUBIN (test code = 2953053417) Negative Negative NITRITE (test code = 1761052525) Negative Negative LEUK MARC (test code = 2365256215) Negative Negative RBC/HPF (test code = 1052343130) See_Comment [Automated messa ge] The system which generated this result transmitted reference range: 0 - 3 HPF. The reference range was not used to interpret this result as normal/abnormal. WBC/HPF (test code = 2919684602) <1 See_Comment [Automated messa ge] The system which generated this result transmitted reference range: 0 - 5 HPF. The reference range was not used to interpret this result as normal/abnormal. BACTERIA (test code = 2562245568) Moderate Negative A SQ EPITH (test code = 7533950093) HPF Lab Interpretation (test code = 97463-3) Abnormal [facility] with Avmtjnumzzdr6823-09-12 08:50:00* Test Item Value Reference Range Interpretation [...] 34.0 g/dL 31.6-35.1 RDW-SD (test code = 87621-9) 42.6 fL 39-49.9 RDW-CV (test code = 788-0) 13.6 % 12-15.5 PLT (test code = 777-3) See_Comment H [Automated messa ge] The system which generated this result transmitted reference range: 166 - 358 10*3/?L. The reference range was not used to interpret this result as normal/abnormal. MPV (test code = 78537-2) 9.7 fL 9.5-12.9 NRBC/100 WBC (test code = 0032229610) See_Comment [Automated Zounds ssage] The system which generated this result transmitted reference range: 0.0 - 10.0 /100 WBCs. The reference range was not used to interpret this result as normal/abnormal. NRBC x10^3 (test code = 4098889132) <0.01 See_Comment [Automated messa ge] The system which generated this result transmitted reference range: 10*3/?L. The reference range was not used to interpret this result as normal/abnormal. GRAN MAT (NEUT) % (test code = 770-8) 49.7 % IMM GRAN % (test code = 9539149943) 0.50 % LYMPH % (test code = 736-9) 41.0 % MONO % (test code = 5905-5) 6.5 % EOS % (test code = 713-8) 1.9 % BASO % (test code = 706-2) 0.4 % GRAN MAT x10^3(ANC) (test code = 1917357050) 6.39 10*3/uL 1.88-7.09 IMM GRAN x10^3 (test code = 2376729240) 0.07 10*3/uL 0-0.06 H LYMPH x10^3 (test code = 731-0) 5.27 10*3/uL 1.32-3.29 H MONO x10^3 (test code = 742-7) 0.84 10*3/uL 0.33-0.92 EOS x10^3 (test code = 711-2) 0.24 10*3/uL 0.03-0.39 BASO x10^3 (test code = 704-7) 0.05 10*3/uL 0.01-0.07 Lab Interpretation (test code = 34637-8) [facility] [id number] 08:45:00* Test Item Value Reference Range Interpretation Comme nts POCT PREG (test code = 1605) neg On board controls acceptable with C Line (test code = 3574) yes POCT PREG LOT # (test code = 3575) [id number] POCT PREG TEST DATE ( test code = 3576) 04/06/2022 Lab Interpretation (test cod e = 17934-1) [facility] CenterComplete Metabolic [id number] 08:30:00* Test Item Value Reference Range Interpretation Comme nts NA (test code = 6135062024) 137 mmol/L 135-145 K (test code = 9929276688) 3.3 mmol/L 3.5-5 L CL (test code = 9437992440) 102 mmol/L 98-108 CO2 TOTAL (test code = 7661669407) 24 mmol/L 23-31 AGAP (test code = 9885497089) 2-16 BUN (test code = 1712806018) 9 mg/dL 7-23 GLUCOSE (test code = 2638839225) 116 mg/dL 70-110 H CREATININE (test code = 6374570342) 0.48 mg/dL 0.5-1.04 L TOTAL BILI (test code = 1061268270) 0.3 mg/dL 0.1-1.1 CALCIUM (test code = 0864964073) 9.4 mg/dL 8.6-10.6 T PROTEIN (test code = 8051711009) 7.0 g/dL 6.3-8.2 ALBUMIN (test code = 0979395059) 4.3 g/dL 3.5-5 ALK PHOS (test code = 3569444174) 127 U/L 34-122 H ALTv (test code = 1742-6) 87 U/L 5-35 H AST(SGOT) (test code = 2020656014) 34 U/L 13-40 eGFR Calculation (Non-) (test code = 3216559433) mL/min/1.73m2 eGFR Calculation () (test code = 6263763968) mL/min/1.73m2 DARWIN (test code = DARWIN) Association [...] imaging tests). Lab Interpretation (test code = 12201-9) [facility] CenterLipase, [id number] 08:30:00* Test Item Value Reference Range Interpretation Comme nts LIPASE (test code = 5842555293) 297 U/L 0-220 H Lab Interpretation (test cod e = 66352-2) [facility] CenterURINALYSIS2021-02-07 19:25:00* Test Item Value Reference Range Interpretation Comme nts APPEARANCE (test code = 0649994131) Clear Clear COLOR (test code = 6134863811) Straw Yellow A PH (test code = 3272923288) 4.8-8.0 SP GRAVITY (test code = 5527132752) 1.003-1.030 GLU U QUAL (test code = 4904192018) Normal Normal BLOOD (test code = 4181848119) 1+ Negative A KETONES (test code = 1142875599) Negative Negative PROTEIN (test code = 2887-8) Negative Negative UROBILIN (test code = 4019212063) Normal Normal BILIRUBIN (test code = 1377519736) Negative Negative NITRITE (test code = 5578711822) Negative Negative LEUK MARC (test code = 8693321552) Negative Negative RBC/HPF (test code = 7178382229) See_Comment [Automated [employer]] The system which generated this result transmitted reference range: 0 - 3 HPF. The reference range was not used to interpret this result as normal/abnormal. WBC/HPF (test code = 1508696222) <1 See_Comment [Automated [employer]] The system which generated this result transmitted reference range: 0 - 5 HPF. The reference range was not used to interpret this result as normal/abnormal. BACTERIA (test code = 5506227300) Few Negative A MUCOUS (test code = 6788557667) Slight Negative LPF A SQ EPITH (test code = 3859964865) HPF Lab Interpretation (test code = 85196-6) [facility]normal [facility] CenterTROPONIN [id number] 19:09:00* Test Item Value Reference Range Interpretation Comme nts TROPONIN I (test code = 3866092665) <0.012 See_Comment [Automated message] The system which [...] biotin. ? Lab Interpretation (test code = 30058-2) [facility] [id number] 19:09:00* Test Item Value Reference Range Interpretation Comme nts BENZO U (test code = 8966256596) Presumptive Positive Negative A ROSA U (test code = 8126553780) Negative Negative AMPHET (test code = 9015378242) Negative Negative THC (test code = 0938141824) Negative Negative METHADONE (test code = 2624431319) Negative Negative Meth U (test code = 3595378643) Negative Negative OPIATES (test code = 2112491897) Negative Negative Cocaine Metabolite (test code = 5993014757) Negative Negative PROPOXY (test code = 3450279290) Negative Negative Tric U (test code = 8717062886) Negative Negative PCP (test code = 9920646344) Negative Negative OXYCOD (test code = 9065740833) Negative Negative DARWIN (test code = DARWIN) [...] legal testing). Lab Interpretation (test code = 54837-4) [facility]normal [facility] CenterCOMP. METABOLIC PANEL (04787)2020-08-14 19:01:00* Test Item Value Reference Range Interpretation Comme nts NA (test code = 7669244066) 138 mmol/L 135-145 K (test code = 2046146235) 4.5 mmol/L 3.5-5 CL (test code = 7333087107) 106 mmol/L 98-108 CO2 TOTAL (test code = 4321546844) 21 mmol/L 23-31 L AGAP (test code = 6535844829) 2-16 BUN (test code = 7411792207) 13 mg/dL 7-23 GLUCOSE (test code = 4868412781) 97 mg/dL 70-110 CREATININE (test code = 4001126107) 0.48 mg/dL 0.5-1.04 L TOTAL BILI (test code = 5703337726) 0.4 mg/dL 0.1-1.1 CALCIUM (test code = 3535380649) 9.1 mg/dL 8.6-10.6 T PROTEIN (test code = 5977344184) 7.5 g/dL 6.3-8.2 ALBUMIN (test code = 3653566850) 4.3 g/dL 3.5-5 ALK PHOS (test code = 7086374016) 62 U/L 34-122 ALTv (test code = 1742-6) 19 U/L 5-35 AST(SGOT) (test code = 7157745440) 26 U/L 13-40 eGFR Calculation (Non-) (test code = 7629351115) mL/min/1.73m2 eGFR Calculation () (test code = 0042569390) mL/min/1.73m2 DARWIN (test code = DARWIN) Association [...] imaging tests). Lab Interpretation (test code = 05975-1) [facility]normal [facility] CenterLIPASE2021-02-07 19:01:00* Test Item Value Reference Range Interpretation Comme nts LIPASE (test code = 3963256802) 76 U/L 0-220 Lab Interpretation (test cod e = 56531-9) Normal [facility] WITH [id number] 18:47:00* Test Item Value Reference Range Interpretation [...] 34.3 g/dL 31.6-35.1 RDW-SD (test code = 52839-0) 42.0 fL 39-49.9 RDW-CV (test code = 788-0) 13.4 % 12-15.5 PLT (test code = 777-3) See_Comment [Automated messa ge] The system which generated this result transmitted reference range: 166 - 358 10*3/?L. The reference range was not used to interpret this result as normal/abnormal. MPV (test code = 69475-4) 9.9 fL 9.5-12.9 NRBC/100 WBC (test code = 8485414237) See_Comment [Automated Zounds ssage] The system which generated this result transmitted reference range: 0.0 - 10.0 /100 WBCs. The reference range was not used to interpret this result as normal/abnormal. NRBC x10^3 (test code = 0667552591) <0.01 See_Comment [Automated messa ge] The system which generated this result transmitted reference range: 10*3/?L. The reference range was not used to interpret this result as normal/abnormal. GRAN MAT (NEUT) % (test code = 770-8) 60.1 % IMM GRAN % (test code = 1319161549) 0.40 % LYMPH % (test code = 736-9) 31.3 % MONO % (test code = 5905-5) 6.0 % EOS % (test code = 713-8) 1.9 % BASO % (test code = 706-2) 0.3 % GRAN MAT x10^3(ANC) (test code = 5373667005) 6.96 10*3/uL 1.88-7.09 IMM GRAN x10^3 (test code = 0338098408) 0.05 10*3/uL 0-0.06 LYMPH x10^3 (test code = 731-0) 3.62 10*3/uL 1.32-3.29 H MONO x10^3 (test code = 742-7) 0.69 10*3/uL 0.33-0.92 EOS x10^3 (test code = 711-2) 0.22 10*3/uL 0.03-0.39 BASO x10^3 (test code = 704-7) 0.04 10*3/uL 0.01-0.07 Lab Interpretation (test code = 82111-1) [facility] CenterXR CHEST 1 [id number] 18:17:08No acute cardiopulmonary abnormality. Preliminary Report Dictated [...] this study and agree with theabove report.[facility] CenterLactic Acid Whole Hvdla0953-14-56 18:11:00* Test Item Value Reference Range Interpretation Comme nts LACTIC ACID (test code = 3283718553) 1.95 mmol/L 0.5-2.2 Lab Interpretation (test cod e = 06684-4) [facility] CenterCT ABDOMEN PELVIS WO [id number] 05:45:24No acute abdominopelvic abnormality. No urolithiasis. 2.5 [...] TREE: No biliary ductal dilation. Cholecystectomy. SP SHRADHDA: No splenomegaly. 0.8 calcification in the upper [...] reviewed this study and agree with the abovereport.[facility] [id number] 03:10:00* Test Item Value Reference Range Interpretation Comme nts POCT PREG (test code = 1605) Negative On board controls acceptable with C Line (test code = 3574) Present POCT PREG LOT # (test code = 3575) [id number] POCT PREG TEST DATE ( test code = 3576) 03/07/2022 Lab Interpretation (test cod e = 85778-6) Normal [facility] with Jbbpcbtrbutl6186-71-14 03:05:00* Test Item Value Reference Range Interpretation [...] 34.7 g/dL 31.6-35.1 RDW-SD (test code = 39284-2) 42.0 fL 39-49.9 RDW-CV (test code = 788-0) 13.5 % 12-15.5 PLT (test code = 777-3) See_Comment [Automated message] The system which generated this result transmitted reference range: 166 - 358 10*3/?L. The reference range was not used to interpret this result as normal/abnormal. MPV (test code = 28758-1) 9.8 fL 9.5-12.9 NRBC/100 WBC (test code = 6768260728) See_Comment [Automated message] The system which generated this result transmitted reference range: 0.0 - 10.0 /100 WBCs. The reference range was not used to interpret this result as normal/abnormal. NRBC x10^3 (test code = 7417774890) <0.01 See_Comment [Automated message] The system which generated this result transmitted reference range: 10*3/?L. The reference range was not used to interpret this result as normal/abnormal. GRAN MAT (NEUT) % (test code = 770-8) 66.2 % IMM GRAN % (test code = 2371245450) 0.60 % LYMPH % (test code = 736-9) 25.4 % MONO % (test code = 5905-5) 5.6 % EOS % (test code = 713-8) 1.9 % BASO % (test code = 706-2) 0.3 % GRAN MAT x10^3(ANC) (test code = 5124120192) 10.64 10*3/uL 1.88-7.09 H IMM GRAN x10^3 (test code = 8324363671) 0.09 10*3/uL 0-0.06 H LYMPH x10^3 (test code = 731-0) 4.09 10*3/uL 1.32-3.29 H MONO x10^3 (test code = 742-7) 0.90 10*3/uL 0.33-0.92 EOS x10^3 (test code = 711-2) 0.31 10*3/uL 0.03-0.39 BASO x10^3 (test code = 704-7) 0.05 10*3/uL 0.01-0.07 Lab Interpretation (test code = 34043-0) [facility]normal [facility] CenterUrinalysis2021-02-04 02:56:00* Test Item Value Reference Range Interpretation Comme nts APPEARANCE (test code = 7766067811) Hazy Clear A COLOR (test code = 7071590192) Yellow Yellow PH (test code = 4452641252) 4.8-8.0 SP GRAVITY (test code = 6379516125) 1.003-1.030 GLU U QUAL (test code = 3142333962) Normal Normal BLOOD (test code = 4551254577) Negative Negative KETONES (test code = 5557782421) Negative Negative PROTEIN (test code = 2887-8) Negative Negative UROBILIN (test code = 1576835711) Normal Normal BILIRUBIN (test code = 1809295049) Negative Negative NITRITE (test code = 6864051270) Negative Negative LEUK MARC (test code = 8559269862) Negative Negative RBC/HPF (test code = 9397109242) See_Comment [Automated InteKrina ge] The system which generated this result transmitted reference range: 0 - 3 HPF. The reference range was not used to interpret this result as normal/abnormal. WBC/HPF (test code = 9315416591) See_Comment [Automated messa ge] The system which generated this result transmitted reference range: 0 - 5 HPF. The reference range was not used to interpret this result as normal/abnormal. BACTERIA (test code = 3467713770) Few Negative A MUCOUS (test code = 7184484589) Slight Negative LPF A SQ EPITH (test code = 7060414765) HPF YEAST BUD (test code = 9915230406) See_Comment H [Automated messa ge] The system which generated this result transmitted reference range: <=1 HPF. The reference range was not used to interpret this result as normal/abnormal. Lab Interpretation (test code = 96658-8) Abnormal [facility] [id number] 02:24:00* Test Item Value Reference Range Interpretation Comme nts TROPONIN I (test code = 4525167791) <0.012 See_Comment [Automated message] The system which [...] biotin. ? Lab Interpretation (test code = 69565-1) [facility] CenterCOVID-19 (ID NOW RAPID TESTING)2020-08-11 02:15:00* Test Item Value Reference Range Interpretation Comme nts SARS-CoV-2 Rapid ID NOW (test code = 02300-9) Not Detected Not Detected DARWIN (test code = DARWIN) ID NOW COVID-19 As say is an isothermal nucleic acid amplification test intended for the qualitative detection of nucleic acid from SARS-CoV-2 viral RNA in nasopharyngeal (THERAPEUTIC SUPPORT STAFF) specimens. It is used under Emergency Use [...] clinically indicated. Lab Interpretation (test code = 34091-3) Normal [facility] CenterBasi Metabolic Panel (NA, K, CL, CO2, GLUCOSE, BUN, CREATININE, CA)2020-08-11 02:13:00* Test Item Value Reference Range Interpretation Comme nts NA (test code = 3893719775) 137 mmol/L 135-145 K (test code = 5561587258) 4.0 mmol/L 3.5-5 CL (test code = 1606608605) 107 mmol/L 98-108 CO2 TOTAL (test code = 9699906168) 19 mmol/L 23-31 L AGAP (test code = 4184727706) 2-16 BUN (test code = 1911680843) 10 mg/dL 7-23 GLUCOSE (test code = 3139806318) 106 mg/dL 70-110 CREATININE (test code = 3122511301) 0.47 mg/dL 0.5-1.04 L CALCIUM (test code = 8617560018) 9.2 mg/dL 8.6-10.6 eGFR Calculation (Non-) (test code = 7461446953) mL/min/1.73m2 eGFR Calculation () (test code = 5559973304) mL/min/1.73m2 DARWIN (test code = DARWIN) Association [...] imaging tests). Lab Interpretation (test code = 79773-0) [facility]normal [facility] CenterHepatic Function Panel (ALB, T.PRO, BILI T, BU/BC, ALT, AST, ALK PHOS)2020-08-11 02:13:00* Test Item Value Reference Range Interpretation Comme nts TOTAL BILI (test code = 1772812324) 0.4 mg/dL 0.1-1.1 BILI UNCON (test code = 7913410855) 0.3 mg/dL 0.1-1.1 BILI CONJ (test code = 7003900136) 0.0 mg/dL 0-0.3 T PROTEIN (test code = 2183523748) 7.5 g/dL 6.3-8.2 ALBUMIN (test code = 0256150623) 4.4 g/dL 3.5-5 ALK PHOS (test code = 4115529390) 48 U/L 34-122 ALTv (test code = 1742-6) 12 U/L 5-35 AST(SGOT) (test code = 8787930969) 22 U/L 13-40 Lab Interpretation (test cod e = 34986-6) Normal [facility] CenterLipase [id number] 02:13:00* Test Item Value Reference Range Interpretation Comme nts LIPASE (test code = 3247107871) 78 U/L 0-220 Lab Interpretation (test cod e = 58218-1) Normal [facility] CenterLactic Acid Whole Zocrl2802-40-37 02:05:00* Test Item Value Reference Range Interpretation Comme nts LACTIC ACID (test code = 8653433512) 1.47 mmol/L 0.5-2.2 Lab Interpretation (test cod e = 77857-1) Normal [facility] CenterXR FOREARM 2 VW [id number] 14:31:40No acute bony abnormality. Soft tissue swelling. [...] this study and agree with the abovereport.[facility] CenterCOVID-19 (ID NOW RAPID TESTING)2020-08-07 14:18:00* Test Item Value Reference Range Interpretation Comme [facility] SARS-CoV-2 Rapid ID NOW (test code = 50509-9) Not Detected Not Detected DARWIN (test code = DARWIN) ID NOW COVID-19 As say is an isothermal nucleic acid amplification test intended for the qualitative detection of nucleic acid from SARS-CoV-2 viral RNA in nasopharyngeal (THERAPEUTIC SUPPORT STAFF) specimens. It is used under Emergency Use [...] clinically indicated. Lab Interpretation (test code = 86421-4) Normal [facility] CenterTROPONIN [id number] 02:54:00* Test Item Value Reference Range Interpretation Comme [facility] TROPONIN I (test code = 4481742888) <0.012 See_Comment [Automated message] The system which [...] biotin. ? Lab Interpretation (test code = 63788-5) Normal [facility] CenterLIPASE2020-12-25 02:37:00* Test Item Value Reference Range Interpretation Comme nts LIPASE (test code = 3138782621) 76 U/L 0-220 Lab Interpretation (test cod e = 25172-2) Normal [facility] CenterURINALYSIS2020-12-25 01:54:00* Test Item Value Reference Range Interpretation Comme nts APPEARANCE (test code = 3845699810) Clear Clear COLOR (test code = 1595330410) Straw Yellow A PH (test code = 1452806366) 4.8-8.0 SP GRAVITY (test code = 1500874204) 1.003-1.030 GLU U QUAL (test code = 2291188728) Normal Normal BLOOD (test code = 1355694534) 3+ Negative A KETONES (test code = 7883865441) Negative Negative PROTEIN (test code = 2887-8) Negative Negative UROBILIN (test code = 3210049444) Normal Normal BILIRUBIN (test code = 5182970115) Negative Negative NITRITE (test code = 5540425987) Negative Negative LEUK MARC (test code = 4219361133) Negative Negative RBC/HPF (test code = 4983566795) See_Comment [Automated [employer]] The system which generated this result transmitted reference range: 0 - 3 HPF. The reference range was not used to interpret this result as normal/abnormal. WBC/HPF (test code = 5705081848) <1 See_Comment [Automated [employer]] The system which generated this result transmitted reference range: 0 - 5 HPF. The reference range was not used to interpret this result as normal/abnormal. BACTERIA (test code = 0568461059) Few Negative A MUCOUS (test code = 8677191696) Slight Negative LPF A SQ EPITH (test code = 0607718718) HPF Lab Interpretation (test code = 11267-3) Abnormal [facility] WITH [id number] 00:57:00* Test Item Value Reference Range Interpretation [...] 34.0 g/dL 31.6-35.1 RDW-SD (test code = 37426-0) 41.7 fL 39-49.9 RDW-CV (test code = 788-0) 13.2 % 12-15.5 PLT (test code = 777-3) See_Comment [Automated messa ge] The system which generated this result transmitted reference range: 166 - 358 10*3/?L. The reference range was not used to interpret this result as normal/abnormal. MPV (test code = 07298-0) 9.4 fL 9.5-12.9 L NRBC/100 WBC (test code = 0293616075) See_Comment [Automated Zounds ssage] The system which generated this result transmitted reference range: 0.0 - 10.0 /100 WBCs. The reference range was not used to interpret this result as normal/abnormal. NRBC x10^3 (test code = 2314862084) <0.01 See_Comment [Automated messa ge] The system which generated this result transmitted reference range: 10*3/?L. The reference range was not used to interpret this result as normal/abnormal. GRAN MAT (NEUT) % (test code = 770-8) 51.8 % IMM GRAN % (test code = 1961713529) 0.50 % LYMPH % (test code = 736-9) 40.7 % MONO % (test code = 5905-5) 4.0 % EOS % (test code = 713-8) 2.5 % BASO % (test code = 706-2) 0.5 % GRAN MAT x10^3(ANC) (test code = 2083521275) 5.38 10*3/uL 1.88-7.09 IMM GRAN x10^3 (test code = 9132412212) 0.05 10*3/uL 0-0.06 LYMPH x10^3 (test code = 731-0) 4.22 10*3/uL 1.32-3.29 H MONO x10^3 (test code = 742-7) 0.42 10*3/uL 0.33-0.92 EOS x10^3 (test code = 711-2) 0.26 10*3/uL 0.03-0.39 BASO x10^3 (test code = 704-7) 0.05 10*3/uL 0.01-0.07 Lab Interpretation (test code = 80774-8) [facility] CenterAD,CLC OR [facility] ONLY - INFLUENZA A & B DIRECT [id number] 00:51:00* Test Item Value Reference Range Interpretation Comme nts Influenza A (test code = 79615-1) Negative Negative Influenza B (test code = 83753-4) Negative Negative Lab Interpretation (test cod e = 19014-0) Normal [facility] [id number] 00:51:00* Test Item Value Reference Range Interpretation Comme nts POCT PREG (test code = 1605) negative On board controls acceptable with C Line (test code = 3574) present POCT PREG LOT # (test code = 3575) [id number] POCT PREG TEST DATE ( test code = 3576) 11/04/2021 Lab Interpretation (test cod e = 88095-3) Normal [facility] CenterTROPONIN [id number] 00:46:00* Test Item Value Reference Range Interpretation Comme nts TROPONIN I (test code = 4497552028) <0.012 See_Comment [Automated message] The system which [...] biotin. ? Lab Interpretation (test code = 99973-4) Normal [facility] CenterBASI METABOLIC PANEL (NA, K, CL, CO2, GLUCOSE, BUN, CREATININE, CA)2020-07-01 00:46:00* Test Item Value Reference Range Interpretation Comme nts NA (test code = 8004018704) 141 mmol/L 135-145 K (test code = 1120273023) 3.8 mmol/L 3.5-5 CL (test code = 2968043295) 108 mmol/L 98-108 CO2 TOTAL (test code = 2331930372) 25 mmol/L 23-31 AGAP (test code = 4735173385) 2-16 BUN (test code = 5563172927) 10 mg/dL 7-23 GLUCOSE (test code = 3878924505) 92 mg/dL 70-110 CREATININE (test code = 6842628020) 0.58 mg/dL 0.5-1.04 CALCIUM (test code = 5157917242) 9.4 mg/dL 8.6-10.6 eGFR Calculation (Non-) (test code = 1052367422) mL/min/1.73m2 eGFR Calculation () (test code = 5989319768) mL/min/1.73m2 DARWIN (test code = DARWIN) Association [...] urine or abnormalities in imaging tests). [facility] CenterN-TERMINAL DRR-[id number] 00:43:00* Test Item Value Reference Range Interpretation Comme nts NT-proBNP (test code = 0540223676) 332 pg/mL See_Comment H [Automated message] The system which generated this result transmitted reference range: <=125. The reference range was not used to interpret this result as normal/abnormal. DARWIN (test code = DARWIN) Biotin has been reported to cause a negative bias, interpret results relative to patient's use of biotin. Lab Interpretation (test code = 33240-0) [facility]normal [facility]XR [facility]ST 1 [id number] 00:20:50No acute cardiopulmonary abnormality Preliminary Report Dictated [...] this study and agree with the abovereport.[facility] CenterCT CERVICAL SPINE WO [id number] 23:23:[address] EXAMINATION: CT [...] apices are unremarkable. IMPRESSIONUnremarkable cervical spine CT.[facility] CenterPOCT Yubd2895-18-48 01:50:00* Test Item Value Reference Range Interpretation Comme nts POCT PREG (test code = 1605) Negative On board controls acceptable with C Line (test code = 3574) Present POCT PREG LOT # (test code = 3575) [id number] POCT PREG TEST DATE ( test code = 3576) 10/05/2021 Lab Interpretation (test cod e = 64554-4) Normal [facility] CenterTroponin [id number] 01:24:00* Test Item Value Reference Range Interpretation Comme [facility] TROPONIN I (test code = 2147827437) <0.012 See_Comment [Automated message] The system which [...] biotin. ? Lab Interpretation (test code = 44839-2) Normal [facility] CenterCOVID[facility]19 (ID NOW RAPID TESTING)2020-06-13 01:22:00* Test Item Value Reference Range Interpretation Comme nts SARS-CoV-2 Rapid ID NOW (test code = 69137-9) Not Detected Not Detected DARWIN (test code = DARWIN) ID NOW COVID-19 As say is an isothermal nucleic acid amplification test intended for the qualitative detection of nucleic acid from SARS-CoV-2 viral RNA in nasopharyngeal (THERAPEUTIC SUPPORT STAFF) specimens. It is used under Emergency Use [...] clinically indicated. Lab Interpretation (test code = 69896-4) Normal [facility] CenterD-DMCPV7775-24-61 01:16:00* Test Item Value Reference Range Interpretation Comments D-DIMER (test code = 1846505165) See_Comment [Automated message] The system which generated [...] a diagnosis. Lab Interpretation (test code = 85080-1) Normal [facility] Metabolic Panel (NA, K, CL, CO2, GLUCOSE, BUN, CREATININE, CA)2020-06-13 01:13:00* Test Item Value Reference Range Interpretation Comme nts NA (test code = 2257827082) 137 mmol/L 135-145 K (test code = 2850665200) 4.2 mmol/L 3.5-5 CL (test code = 0366727377) 103 mmol/L 98-108 CO2 TOTAL (test code = 3196342359) 25 mmol/L 23-31 AGAP (test code = 8324531388) 2-16 BUN (test code = 6738396634) 11 mg/dL 7-23 GLUCOSE (test code = 7353472082) 98 mg/dL 70-110 CREATININE (test code = 8462823194) 0.52 mg/dL 0.5-1.04 CALCIUM (test code = 6946941249) 10.3 mg/dL 8.6-10.6 eGFR Calculation (Non-) (test code = 6127756541) mL/min/1.73m2 eGFR Calculation () (test code = 9051297626) mL/min/1.73m2 DARWIN (test code = DARWIN) Association [...] urine or abnormalities in imaging tests). [facility] CenterHepatic Function Panel (ALB, T.PRO, BILI T, BU/BC, ALT, AST, ALK PHOS)2020-06-13 01:13:00* Test Item Value Reference Range Interpretation Comme nts TOTAL BILI (test code = 3805717456) 0.5 mg/dL 0.1-1.1 BILI UNCON (test code = 2268198499) 0.3 mg/dL 0.1-1.1 BILI CONJ (test code = 7520758597) 0.0 mg/dL 0-0.3 T PROTEIN (test code = 4574839328) 7.3 g/dL 6.3-8.2 ALBUMIN (test code = 7268939717) 4.2 g/dL 3.5-5 ALK PHOS (test code = 0908392757) 85 U/L 34-122 ALTv (test code = 1742-6) 66 U/L 5-35 H AST(SGOT) (test code = 0533767678) 32 U/L 13-40 Lab Interpretation (test cod e = 15122-5) Abnormal [facility] CenterLipase [id number] 01:13:00* Test Item Value Reference Range Interpretation Comme nts LIPASE (test code = 8947704446) 60 U/L 0-220 Lab Interpretation (test cod e = 48984-7) [facility]:03:00* Test Item Value Reference Range Interpretation Comme nts APPEARANCE (test code = 4422892366) Clear Clear COLOR (test code = 7401695946) Straw Yellow A PH (test code = 0920660949) 4.8-8.0 SP GRAVITY (test code = 1774143871) 1.003-1.030 GLU U QUAL (test code = 6952814750) Normal Normal BLOOD (test code = 3682944258) Negative Negative KETONES (test code = 8158872324) Negative Negative PROTEIN (test code = 2887-8) Negative Negative UROBILIN (test code = 8239282083) Normal Normal BILIRUBIN (test code = 2482949043) Negative Negative NITRITE (test code = 0122061673) Negative Negative LEUK MARC (test code = 2905254029) Negative Negative RBC/HPF (test code = 4573044045) See_Comment [Automated messa ge] The system which generated this result transmitted reference range: 0 - 3 HPF. The reference range was not used to interpret this result as normal/abnormal. WBC/HPF (test code = 0143106620) See_Comment [Automated messa ge] The system which generated this result transmitted reference range: 0 - 5 HPF. The reference range was not used to interpret this result as normal/abnormal. BACTERIA (test code = 5424459631) Negative Negative MUCOUS (test code = 9241305552) Slight Negative LPF A SQ EPITH (test code = 9251648871) HPF Lab Interpretation (test code = 74284-9) Abnormal [facility] with Thdjqvosxauw1455-23-84 00:55:00* Test Item Value Reference Range Interpretation [...] 34.5 g/dL 31.6-35.1 RDW-SD (test code = 63906-6) 42.5 fL 39-49.9 RDW-CV (test code = 788-0) 13.5 % 12-15.5 PLT (test code = 777-3) See_Comment [Automated InteKrina ge] The system which generated this result transmitted reference range: 166 - 358 10*3/?L. The reference range was not used to interpret this result as normal/abnormal. MPV (test code = 35267-3) 10.1 fL 9.5-12.9 NRBC/100 WBC (test code = 5660794015) See_Comment [Automated Zounds ssage] The system which generated this result transmitted reference range: 0.0 - 10.0 /100 WBCs. The reference range was not used to interpret this result as normal/abnormal. NRBC x10^3 (test code = 0898177256) <0.01 See_Comment [Automated InteKrina ge] The system which generated this result transmitted reference range: 10*3/?L. The reference range was not used to interpret this result as normal/abnormal. GRAN MAT (NEUT) % (test code = 770-8) 61.9 % IMM GRAN % (test code = 1159632569) 0.60 % LYMPH % (test code = 736-9) 30.6 % MONO % (test code = 5905-5) 5.2 % EOS % (test code = 713-8) 1.4 % BASO % (test code = 706-2) 0.3 % GRAN MAT x10^3(ANC) (test code = 2606792282) 8.03 10*3/uL 1.88-7.09 H IMM GRAN x10^3 (test code = 4996260535) 0.08 10*3/uL 0-0.06 H LYMPH x10^3 (test code = 731-0) 3.97 10*3/uL 1.32-3.29 H MONO x10^3 (test code = 742-7) 0.68 10*3/uL 0.33-0.92 EOS x10^3 (test code = 711-2) 0.18 10*3/uL 0.03-0.39 BASO x10^3 (test code = 704-7) 0.04 10*3/uL 0.01-0.07 Lab Interpretation (test code = 70988-4) [facility] NOW RAPID TESTING)2020-05-17 00:27:00* Test Item Value Reference Range Interpretation Comme nts SARS-CoV-2 Rapid ID NOW (test code = 44933-2) Not Detected Not Detected DARWIN (test code = DARWIN) ID NOW COVID-19 As say is an isothermal nucleic acid amplification test intended for the qualitative detection of nucleic acid from SARS-CoV-2 viral RNA in nasopharyngeal (THERAPEUTIC SUPPORT STAFF) specimens. It is used under Emergency Use [...] clinically indicated. Lab Interpretation (test code = 15135-0) [facility] (NA, K, CL, CO2, GLUCOSE, BUN, CREATININE, CA)2020-05-17 00:00:00* Test Item Value Reference Range Interpretation Comme nts NA (test code = 1343989189) 136 mmol/L 135-145 K (test code = 1816664190) 3.6 mmol/L 3.5-5 CL (test code = 7074210314) 103 mmol/L 98-108 CO2 TOTAL (test code = 5924001627) 26 mmol/L 23-31 AGAP (test code = 6128154856) 2-16 BUN (test code = 7592335392) 13 mg/dL 7-23 GLUCOSE (test code = 0408986784) 130 mg/dL 70-110 H CREATININE (test code = 1274776710) 0.58 mg/dL 0.5-1.04 CALCIUM (test code = 4493577185) 9.9 mg/dL 8.6-10.6 eGFR Calculation (Non-) (test code = 1581866017) mL/min/1.73m2 eGFR Calculation () (test code = 3591873182) mL/min/1.73m2 DARWIN (test code = DARWIN) Association [...] imaging tests). Lab Interpretation (test code = 54383-5) [facility]normal [facility] (ALB, T.PRO, BILI T, BU/BC, ALT, AST, ALK PHOS)2020-05-17 00:00:00* Test Item Value Reference Range Interpretation Comme nts TOTAL BILI (test code = 3347546528) 0.4 mg/dL 0.1-1.1 BILI UNCON (test code = 4689560539) 0.3 mg/dL 0.1-1.1 BILI CONJ (test code = 0755987775) 0.0 mg/dL 0-0.3 T PROTEIN (test code = 1044089863) 7.3 g/dL 6.3-8.2 ALBUMIN (test code = 8049026184) 4.3 g/dL 3.5-5 ALK PHOS (test code = 2032936305) 118 U/L 34-122 ALTv (test code = 1742-6) 119 U/L 5-35 H AST(SGOT) (test code = 1950038349) 47 U/L 13-40 H Lab Interpretation (test cod e = 63023-9) Abnormal [facility] Center[facility]ase Ceizu9515-07-49 00:00:00* Test Item Value Reference Range Interpretation Comme nts LIPASE (test code = 0319006075) 70 U/L 0-220 Lab Interpretation (test cod e = 19365-7) Normal [facility] CenterCB with Ebmiswnmxddx3585-70-78 23:49:00* Test Item Value Reference Range Interpretation Comme nts WBC (test code = 6690-2) See_Comment [Automated InteKrina ge] The system which generated this result transmitted reference range: 4.30 - 11.10 10*3/?L. The reference range was not used to interpret this result as normal/abnormal. RBC (test code = 789-8) See_Comment [Automated InteKrina ge] The system which generated this result [...] 33.3 g/dL 31.6-35.1 RDW-SD (test code = 15726-5) 42.8 fL 39-49.9 RDW-CV (test code = 788-0) 13.5 % 12-15.5 PLT (test code = 777-3) See_Comment [Automated messa ge] The system which generated this result transmitted reference range: 166 - 358 10*3/?L. The reference range was not used to interpret this result as normal/abnormal. MPV (test code = 92837-7) 9.8 fL 9.5-12.9 NRBC/100 WBC (test code = 5727188915) See_Comment [Automated me ssage] The system which generated this result transmitted reference range: 0.0 - 10.0 /100 WBCs. The reference range was not used to interpret this result as normal/abnormal. NRBC x10^3 (test code = 9509250531) <0.01 See_Comment [Automated me ssage] The system which generated this result transmitted reference range: 10*3/?L. The reference range was not used to interpret this result as normal/abnormal. GRAN MAT (NEUT) % (test code = 770-8) 62.5 % IMM GRAN % (test code = 5986126691) 0.50 % LYMPH % (test code = 736-9) 29.8 % MONO % (test code = 5905-5) 5.6 % EOS % (test code = 713-8) 1.1 % BASO % (test code = 706-2) 0.5 % GRAN MAT x10^3(ANC) (test code = 0791719533) 6.65 10*3/uL 1.88-7.09 IMM GRAN x10^3 (test code = 1497654108) 0.05 10*3/uL 0-0.06 LYMPH x10^3 (test code = 731-0) 3.17 10*3/uL 1.32-3.29 MONO x10^3 (test code = 742-7) 0.59 10*3/uL 0.33-0.92 EOS x10^3 (test code = 711-2) 0.12 10*3/uL 0.03-0.39 BASO x10^3 (test code = 704-7) 0.05 10*3/uL 0.01-0.07 [facility] CenterACETAMINOPHEN2020-11-08 08:24:00* Test Item Value Reference Range Interpretation Comme nts ACETAMINOP (test code = 0667167296) 21.0 ug/mL 10-30 DARWIN (test code = DARWIN) Toxic: Greater joan n 200 ug/mL @ 4 hour post ingestion or greater than 50 ug/mL @ 12 hour post ingestion Lab Interpretation (test code = 55213-6) Normal [facility] CenterETHANOL2020-11-08 06:37:00* Test Item Value Reference Range Interpretation Comme nts ALCOHOL (test code = 5496298455) <10 mg/dL DARWIN (test code = DARWIN) <10 Lajablof28-233 Toxic>100 Depression of FINANCIAL WRITER>400 Fatalities Reported [facility] Metabolic Panel (NA, K, CL, CO2, GLUCOSE, BUN, CREATININE, CA)2020-05-15 06:35:00* Test Item Value Reference Range Interpretation Comme nts NA (test code = 4275107645) 137 mmol/L 135-145 K (test code = 7649051280) 4.0 mmol/L 3.5-5 CL (test code = 3973455237) 106 mmol/L 98-108 CO2 TOTAL (test code = 1188114308) 25 mmol/L 23-31 AGAP (test code = 9575848194) 2-16 BUN (test code = 3987385762) 9 mg/dL 7-23 GLUCOSE (test code = 5575522388) 95 mg/dL 70-110 CREATININE (test code = 4181774826) 0.53 mg/dL 0.5-1.04 CALCIUM (test code = 7039964360) 9.0 mg/dL 8.6-10.6 eGFR Calculation (Non-) (test code = 1198175589) mL/min/1.73m2 eGFR Calculation () (test code = 1960027252) mL/min/1.73m2 DARWIN (test code = DARWIN) Association [...] urine or abnormalities in imaging tests). [facility] (ALB, T.PRO, BILI T, BU/BC, ALT, AST, ALK PHOS)2020-05-15 06:35:00* Test Item Value Reference Range Interpretation Comme nts TOTAL BILI (test code = 8586636635) 0.4 mg/dL 0.1-1.1 BILI UNCON (test code = 0907540616) 0.2 mg/dL 0.1-1.1 BILI CONJ (test code = 2341236277) 0.0 mg/dL 0-0.3 T PROTEIN (test code = 0770647338) 6.3 g/dL 6.3-8.2 ALBUMIN (test code = 9929399786) 3.8 g/dL 3.5-5 ALK PHOS (test code = 9166633500) 117 U/L 34-122 ALTv (test code = 1742-6) 179 U/L 5-35 H AST(SGOT) (test code = 6523543170) 194 U/L 13-40 H Lab Interpretation (test cod e = 60902-8) Abnormal [facility] CenterLipase Ponay5548-02-85 06:35:00* Test Item Value Reference Range Interpretation Comme nts LIPASE (test code = 0156751395) 92 U/L 0-220 Lab Interpretation (test cod e = 33241-5) Normal [facility] CenteraPTT2020-11-08 06:22:00* Test Item Value Reference Range Interpretation Comme nts APTT Patient (test code = 3173-2) See_Comment [Automated message] The system which generated this result transmitted reference range: 23 - 38 Seconds. The reference range was not used to interpret this result as normal/abnormal. DARWIN (test code = DARWIN) The [facility] patient population mean normal value for aPTT is 30 seconds. Lab Interpretation (test code = 11723-7) [facility] Center[facility]ysis2020-11-[facility] 06:21:00* Test Item Value Reference Range Interpretation Comme nts APPEARANCE (test code = 7870290792) Clear Clear COLOR (test code = 9466559460) Yellow Yellow PH (test code = 2957645660) 4.8-8.0 SP GRAVITY (test code = 1241108995) 1.003-1.030 GLU U QUAL (test code = 5830800905) Normal Normal BLOOD (test code = 6041623393) Negative Negative KETONES (test code = 0914869403) Negative Negative PROTEIN (test code = 2887-8) Negative Negative UROBILIN (test code = 2969483300) Normal Normal BILIRUBIN (test code = 5211172911) Negative Negative NITRITE (test code = 7975212318) Negative Negative LEUK MARC (test code = 4895318761) Negative Negative RBC/HPF (test code = 8552229020) See_Comment [Automated InteKrina ge] The system which generated this result transmitted reference range: 0 - 3 HPF. The reference range was not used to interpret this result as normal/abnormal. WBC/HPF (test code = 7303087798) <1 See_Comment [Automated InteKrina ge] The system which generated this result transmitted reference range: 0 - 5 HPF. The reference range was not used to interpret this result as normal/abnormal. BACTERIA (test code = 4517806707) Negative Negative MUCOUS (test code = 7997212310) Slight Negative LPF A SQ EPITH (test code = 6535837057) HPF Lab Interpretation (test code = 32835-3) Abnormal [facility] CenterProthrombin Time (PT) / [id number] 06:20:00 * Test Item Value Reference Range Interpretation Comme nts PROTIME PATIENT (test code = 5964-2) See_Comment [Automated InteKrina ge] The system which generated this result transmitted reference range: 12.0 - 14.7 Seconds. The reference range was not used to interpret this result as normal/abnormal. INR (test code = 6301-6) Normal INR <1.1; Warfarin Therapeutic range 2.0 to 3.0 or 2.5 to 3.5, depending upon the indications. Lab Interpretation (test code = 40500-4) Normal [facility] - DRUG SCREEN [id number] 06:19:00* Test Item Value Reference Range Interpretation Comme nts BENZO U (test code = 5816244762) Presumptive Positive Negative A ROSA U (test code = 4553586188) Negative Negative AMPHET (test code = 6831094894) Negative Negative THC (test code = 5108276610) Negative Negative METHADONE (test code = 2089836940) Negative Negative Meth U (test code = 3191593206) Negative Negative OPIATES (test code = 7444506802) Negative Negative Cocaine Metabolite (test code = 7827688019) Negative Negative PROPOXY (test code = 5150050072) Negative Negative Tric U (test code = 5231218553) Negative Negative PCP (test code = 1325928317) Negative Negative OXYCOD (test code = 5786685570) Negative Negative DARWIN (test code = DARWIN) [...] legal testing). Lab Interpretation (test code = 46410-0) Abnormal [facility] with Mtjyhzhxlyvr9689-39-33 06:07:00* Test Item Value Reference Range Interpretation [...] 34.3 g/dL 31.6-35.1 RDW-SD (test code = 09956-5) 43.4 fL 39-49.9 RDW-CV (test code = 788-0) 13.7 % 12-15.5 PLT (test code = 777-3) See_Comment [Automated messa ge] The system which generated this result transmitted reference range: 166 - 358 10*3/?L. The reference range was not used to interpret this result as normal/abnormal. MPV (test code = 87699-6) 9.7 fL 9.5-12.9 NRBC/100 WBC (test code = 7022180604) See_Comment [Automated Zounds ssage] The system which generated this result transmitted reference range: 0.0 - 10.0 /100 WBCs. The reference range was not used to interpret this result as normal/abnormal. NRBC x10^3 (test code = 4703034269) <0.01 See_Comment [Automated messa ge] The system which generated this result transmitted reference range: 10*3/?L. The reference range was not used to interpret this result as normal/abnormal. GRAN MAT (NEUT) % (test code = 770-8) 50.6 % IMM GRAN % (test code = 8543139814) 0.20 % LYMPH % (test code = 736-9) 42.1 % MONO % (test code = 5905-5) 5.5 % EOS % (test code = 713-8) 1.2 % BASO % (test code = 706-2) 0.4 % GRAN MAT x10^3(ANC) (test code = 6409438812) 4.31 10*3/uL 1.88-7.09 IMM GRAN x10^3 (test code = 7352097909) <0.03 0-0.06 LYMPH x10^3 (test code = 731-0) 3.58 10*3/uL 1.32-3.29 H MONO x10^3 (test code = 742-7) 0.47 10*3/uL 0.33-0.92 EOS x10^3 (test code = 711-2) 0.10 10*3/uL 0.03-0.39 BASO x10^3 (test code = 704-7) 0.03 10*3/uL 0.01-0.07 Lab Interpretation (test code = 18186-9) [facility]normal [facility] CenterPOCT Kijl0447-75-16 05:53:00* Test Item Value Reference Range Interpretation Comme nts POCT PREG (test code = 1605) Negative On board controls acceptable with C Line (test code = 3574) Present POCT PREG LOT # (test code = 3575) HCG [id number] POCT PREG TEST DATE ( test code = 3576) 10/05/2021 Lab Interpretation (test cod e = 91167-3) Normal [facility] Consult Notes Date/Time Note Provider Source 2024-11-01 09:43:46 Associated Order(s): CONSULT CARDIOLOGY [facility] Cardiology Consult Note Patient: Charity Roca Date of : 1980 Date of service: 11/01/2024 Primary Care Physician: Joanne Montes CHIEF COMPLAINT: Chief Complaint Patient presents with Chest Pain HISTORY OF PRESENT ILLNESS: Charity Roca is a 44 year old female presented to the ER for evaluation for chest pain. History from patient. Patient seen and examined in the room. Pertinent cardiac related history reviewed from chart Presented to the ED secondary to chest pain with associated nausea, vomiting, and shortness of breath started hours prior to arrival. She describes as mid-sternal chest pain that radiates to the left arm/shoulder pain while at rest. She states that she often has chest pain about once a month. Usually when this happens, she takes Protonix, musculoskeletal relaxants, and tylenol which usually helps, however, not from this episode. EDWARDS NYHA Class II-III. Reports having waxing and waning of chest pain. No PND or orthopnea. No pedal edema. No exertional palpitations or palpitations at rest. No syncopal attacks. Primary strip picker: Dr. Jerson MONTE dated 11/2023. Reports having stress test done in last 6 months noted to normal and then Imdur 60 mg daily was added to her ASA/Plavix/Crestor PMH of PTSD, anxiety, HTN, pancreatitis, CAD s/p stent, depression PAST MEDICAL HISTORY Past Medical History: Diagnosis Date Anxiety Hypertension PTSD (post-traumatic stress disorder) of family members. Past Surgical History: Procedure Laterality Date CHOLECYSTECTOMY TONSILLECTOMY Family History Problem Relation Age of Onset Heart Mother [place] in her 40s Heart Father [place] in his 60s SOCIAL HISTORY Social History Socioeconomic History Marital status: Number of children: 0 Years of education: 12 Highest education level: High school graduate Occupational History Occupation: disabled Tobacco Use Smoking status: Every Day Types: Cigarettes Smokeless tobacco: Current Tobacco comments: In the process of quitting. Now smokes 5 cigarettes/ day from 2 packs per day ALLERGIES No Known Allergies MEDICATIONS Current Discharge Medication List STOP taking these medications aspirin 81 mg EC tablet Comments: Reason for Stopping: clopidogreL 75 mg tablet Comments: Reason for Stopping: haloperidoL 2 mg tablet Comments: Reason for Stopping: hydrOXYzine 50 mg tablet Comments: Reason for Stopping: isosorbide mononitrate 60 mg 24 hr tablet Comments: Reason for Stopping: rosuvastatin 20 mg tablet Comments: Reason for Stopping: famotidine (PEPCID) 20 mg tablet Comments: Reason for Stopping: ALPRAZOLAM ORAL Comments: Reason for Stopping: methocarbamoL (ROBAXIN) 500 mg tablet Comments: Reason for Stopping: cefdinir 300 mg capsule Comments: Reason for Stopping: Current Facility-Administered Medications: ALPRAZolam (XANAX) tablet 1 mg, 1 mg, Oral, BIDPRN, Alexey Alegre MD, 1 mg at 11/01/24 0216 aspirin EC tablet 81 mg, 81 mg, Oral, DAILY, Alexey Alegre MD, 81 mg at 11/01/24 0819 clopidogreL (PLAVIX) 75 mg tablet 75 mg, 75 mg, Oral, DAILY, Alexey Alegre MD, 75 mg at 11/01/24 0819 famotidine (PEPCID AC) tablet 20 mg, 20 mg, Oral, BID, Alexey Alegre MD, 20 mg at 11/01/24 0819 haloperidoL (HALDOL) tablet 2 mg, 2 mg, Oral, QHS, Alexey Alegre MD hydralAZINE (APRESOLINE) injection 10 mg, 10 mg, Slow IV Push, Q4HPRN, Alexey Alegre MD hydrOXYzine (ATARAX) tablet 50 mg, 50 mg, Oral, [id number], Alexey Alegre MD isosorbide mononitrate (IMDUR) 24 hr tablet 60 mg, 60 mg, Oral, DAILY, Alexey Alegre MD, 60 mg at 11/01/24 08 lisinopriL (PRINIVIL,ZESTRIL) tablet 40 mg, 40 mg, Oral, DAILY, Alexey Alegre MD, 40 mg at 11/01/24 08 methocarbamoL (ROBAXIN) tablet 500 mg, 500 mg, Oral, Q6HPRN, Alexey Alegre MD, 500 mg at 11/01/24 0819 rosuvastatin (CRESTOR) tablet 20 mg, 20 mg, Oral, QHS, Alexey Alegre MD acetaminophen (TYLENOL) tablet 650 mg, 650 mg, Oral, Q6HPRN, Alexey Alegre MD enoxaparin (LOVENOX) injection 40 mg, 40 mg, Subcutaneous, DAILY, Alexey Alegre MD, 40 mg at 11/01/24 0818 ketorolac (TORADOL) injection 15 mg, 15 mg, Slow IV Push, Q6HPRN, Alexey Alegre MD, 15 mg at 11/01/24 0927 ondansetron (ZOFRAN (PF)) injection 4 mg, 4 mg, Slow IV Push, Q6HPRN, Alexey Alegre MD REVIEW OF SYSTEMS: Comprehensive 10-system review was conducted and were negative except for what's noted in the HPI. The following systems were reviewed: Constitutional, cardiovascular, respiratory, gastrointestinal, genitourinary, musculoskeletal, neurologic, psychiatric, endocrinological, and hematological. PHYSICAL EXAMINATION: Vitals: 11/01/24 0000 11/01/24 0041 11/01/24 0357 11/01/24 0817 BP: (!) 122/39 122/73 (!) 156/99 (!) 155/96 Pulse: 94 98 76 75 Resp: 13 18 18 19 Temp: 36.6 ?C (97.8 ?F) 36.5 ?C (97.7 ?F) 36.4 ?C (97.5 ?F) TempSrc: Temporal Artery SpO2: 94% 96% 97% 98% Weight: 107 kg (235 lb 12.8 oz) Height: General: no apparent distress HEENT: normocephalic atraumatic Neck: supple, no lymphadenopathy, no bruits, no JVD Lungs: clear to auscultation bilaterally. No wheezes or rhonchi. No increased work of breathing. Cardio: Regular rate and rhythm, S1&S2 normal, no murmurs, rubs or gallops Abdomen: soft; non-tender; non-distended; normoactive bowel sounds. : not examined Rectal: not examined Extremities: no clubbing, cyanosis, or edema. Skin: no rashes, no visible lesions. Neuro: no gross focal deficits LABS - Reviewed pertinent labs as below: CBC BMP PT/INR WBC x10 3 (/CMM) Date Value 07/23/2004 11.4 (H) WBC (10*3/?L) Date Value 11/01/2024 11.34 (H) NA Date Value 11/01/2024 138 mmol/L 07/23/2004 140 MMOL/L No results found for: "PT" PLT x10 3 (/CMM) Date Value 07/23/2004 301 PLT (10*3/?L) Date Value 11/01/2024 361 (H) K Date Value 11/01/2024 3.6 mmol/L 07/23/2004 3.9 MMOL/L INR (no units) Date Value 04/16/2023 1.0 HGB Date Value 11/01/2024 12.1 g/dL 07/23/2004 14.9 G/DL BUN Date Value 11/01/2024 9 mg/dL 07/23/2004 6 MG/DL (L) HCT (%) Date Value 11/01/2024 37.1 07/23/2004 43.1 CREATININE Date Value 11/01/2024 0.63 mg/dL 07/23/2004 0.77 MG/DL LIPID PROFILE GLUCOSE Date Value 11/01/2024 113 mg/dL (H) 07/23/2004 119 MG/DL (H) CHOL (mg/dL) Date Value 11/01/2024 185 TSH LDL CHOL (mg/dL) Date Value 11/01/2024 105 TSH (mIU/L) Date Value 12/13/2021 3.56 CARDIAC ENZYMES HDL (mg/dL) Date Value 11/01/2024 36 (L) No results found for: "CK" TRIG (mg/dL) Date Value 11/01/2024 219 (H) LFTs No results found for: "CKMB" AST(SGOT) (U/L) Date Value 10/31/2024 27 07/23/2004 20 TROPONIN I (ng/mL) Date Value 11/01/2024 0.003 ALT(SGPT) (U/L) Date Value 07/23/2004 26 ALTv (U/L) Date Value 10/31/2024 15 No results found for: "BNP" LDL CHOL (mg/dL) Date Value 11/01/2024 105 Recent Labs 11/01/24 0826 TROPNI 0.003 Recent Labs 11/01/24 0826 TRIG 219* LDL CHOL (mg/dL) Date Value 11/01/2024 105 NT-proBNP (pg/mL) Date Value 11/01/2024 <20 01/09/2022 145 (H) ASSESSMENT/PLAN Principal Problem: Chest pain, unspecified type Active Problems: Morbid obesity with body mass index of 40.0-49.9 Cigarette smoker Family history of early CAD Essential hypertension Coronary artery disease involving [place] coronary artery of [place] heart with angina pectoris Dyslipidemia Chest pain by history: Possibility of underlying unstable angina ECG reviewed which shows no dynamic changes noted. EKG dated 11/01/2024 strips reviewed sinus tachycardia, narrow QRS complex, nonspecific ST-T changes noted. Echocardiogram dated 11/01/24 images reviewed shows preserved LV systolic function, no significant valve normalities noted. Chest x-ray dated 10/31/2024 shows no evidence of any heart failure pattern. Serial troponins have been negative. NT-proBNP within normal limits. Recent stress test in the last 6 months done with primary cardiology team noted to be within acceptable normal limits. Patient reports chest pain with mixed features with resting pain and also on exertion with walking. Recommend starting IV heparin drip in anticipation of invasive coronary angiogram. Patient reports similar kind of symptoms happening in November 2023 leading up to non-STEMI and coronary angiogram/stents. Due to ongoing chest pain, recommend inpatient transfer for invasive coronary angiogram. Recommended repeating EKG. May consider restarting Nitropaste 1 inch for better chest pain control. However patient reports SL nitro did not work for chest pain. Recent Labs 11/01/24 0217 11/01/24 0826 TROPNI 0.002 0.003 NT-proBNP (pg/mL) Date Value 11/01/2024 <20 01/09/2022 145 (H) CAD s/p PCI November 2023 Continue aspirin/Plavix. Along with Imdur 60 mg daily. May consider increasing Imdur to 90 mg daily. Continue with rosuvastatin 20 mg daily. Rx plan as noted above. Dyslipidemia: LDL not optimally controlled. Recommend increasing rosuvastatin to 40 mg daily. Currently on Lipitor 20 mg daily. LDL CHOL (mg/dL) Date Value 11/01/2024 105 Last Two A1C Results ([facility]/LC, POCT, QUEST) Recent Labs 11/01/24 0217 HGBA1C 5.6 Primary strip picker: Dr Healy Total Visit Time: 45 mins The total Visit time for today's visit with Charity Roca encompassed 45 minutes. Time was spent reviewing the chart before, during and after the visit, reviewing laboratory results, taking interval history, performing the documented physical examination, completing and "cleaning up" the electronic medical record as well as addressing any questions and concerns. The time spent for patient care includes: PreCharting (eg, review of tests, notes, etc.), Obtaining and/or reviewing separately obtained history (Care Everywhere or paper records), Counseling and educating the patient/family/caregiver, Ordering medications, tests, or procedures, Ordering referrals and/or communicating with other health rehab care assistant (when not separately reported), Documenting clinical information in the electronic or other health record, and Independently interpreting results (not separately reported) and/or communicating results to the patient/family/caregiver. This report was dictated using VenueAgent and is subject to voice recognition errors. Please excuse any unusual inaccuracies. My diagnostic impression and treatment plans were discussed at length with the patient. All side effects as well as drug-drug interactions and risks discussed at length. Ample opportunity was offered and encouraged to ask questions during this visit and patient appreciated the answers given by me and verbzalised statisfcation in the answers given. Thank you for allowing us to participate in the care of Charity Roca. If you have any questions or concerns please feel free to call our office at [phone]. I would be happy to be of further assistance for Charity Roca wellbeing. Voice recognition software has been used to create portions of this document. An attempt to proofread has been made to minimize errors. Please do not hesitate to call with any questions. Natasha Hernandes MD 11/01/2024 9:43 AM [employer], Division of Cardiology [facility] - Health History and Physical Notes Date/Time Note Provider Source 2024-11-03 12:52:39 Pre-Procedure Sedation Evaluation H&P from admission reviewed. No changes noted.. Allergies were reviewed. NPO Status Solids: >8 hours Clear liquids: >2 hours History History of anesthesia/sedation complications: No History of difficult airway: No History of neck problems, craniofacial abnormalities, head/neck surgery: No Increased risk for airway obstruction, sleep apnea, morbid obesity: No Focused Physical Exam Heart: documented in H&P Normal Lung: documented in H&P Normal Airway Mallampati: III (only soft palate and only base of uvula) Mouth opening: Normal Range of motion neck: Normal Dentition: Normal Assessment: ASA 3 Plan: Moderate sedation The risks, benefits, and treatment options of sedation were discussed with the patient/guardian and they desire to proceed. The consent form was completed and signed. Alec Antoine MD PGY-5, Station [employer] Pager: [phone] Cosigned by Dane Jurado MD at 11/03/2024 1:11 PM CDT Associated attestation - Dane Jurado MD - 11/03/2024 1:11 PM CDT I agree with the note as written Dane Jurado M.D. Interventional Cardiology Pager: [phone] INTERVENTIONAL CARDIOLOGY [facility] 2024-11-01 18:17:28 MCAWHITE Admit H&P PCP: Joanne Montes Date of Service: 11/01/2024 CHIEF COMPLAINT: Chest pain HISTORY OF PRESENT ILLNESS Charity Roca is a 44 year old female with a PMH of morbid obesity, HTN, HLD, CAD s/p PCI (reported 10/06/2023, outpatient strip picker is Dr. Arthur), prior pancreatitis, PTSD, depression and anxiety who presented as a transfer from [facility] for unstable angina. The patient reported that she presented to OSH on 10/31/2024 for constant, sharp mid-sternal chest pain that radiated to the left arm/shoulder associated with N/V, diarrhea, SOB. Reported that pain began at rest a few hours prior to arrival to the ED. Reported she took a ketorolac, pepcid, and 4 baby ASA without improvement in symptoms. Stated that symptoms were similar to those leading up to her reported 09/2023 PCI. Per chart review, COVID/Flu/RSV, UA, procal, lipase neg, NTProBNP <20, Trop x 3 neg. CXR with mild left perihilar and bibasilar opacities, similar to previous, TTE with LVEF 55-60%, impaired relaxation, Rap 0-5 mmHg. Patient c/w ASA, Plavix, and started on hep bolus + gtt. She was also started on lisinopril for HTN urgency, with improvement in BP. Cardiology consulted, recommended transfer to [facility] for invasive coronary angiography. Upon arrival to [facility], patient evaluated at bedside. Stated that she received morphine with some improvement in chest pain. Reported that chest pain worsens with exertion. Stated that nitro does not improve chest pain and that only morphine helps reduce chest pain. Patient denied shortness of breath, abdominal pain, fever, chills, dysuria, increased urinary urgency, frequency, constipation, diarrhea, PND, orthopnea, BLE edema, palpations, syncope. Reported that both mother and father have extensive cardiac histories with stenting. Reported current tobacco use with 5 cigarettes/day. Denied alcohol or recreational drug use. Past medical history: has a past medical history of Anxiety, Hypertension, and PTSD (post-traumatic stress disorder). Past surgical history: has a past surgical history that includes cholecystectomy and tonsillectomy. Social history: reports that she has been smoking cigarettes. She uses smokeless tobacco. Family history: family history includes Heart in her father and mother. Allergies: No Known Allergies MEDICATIONS No current facility-administered medications on file prior to encounter. Current Outpatient Medications on File Prior to Encounter Medication Sig Dispense Refill aspirin 81 mg EC tablet Take 1 tablet by mouth in the morning. clopidogreL 75 mg tablet Take 1 tablet by mouth in the morning. haloperidoL 2 mg tablet Take 1 tablet by mouth at bedtime. hydrOXYzine 50 mg tablet Take 1 tablet by mouth every 12 (twelve) hours as needed for Anxiety. isosorbide mononitrate 60 mg 24 hr tablet Take 1 tablet by mouth in the morning. rosuvastatin 20 mg tablet Take 1 tablet by mouth at bedtime. famotidine (PEPCID) 20 mg tablet Take 1 tablet by mouth in the morning and 1 tablet in the evening. (Patient taking differently: Take 1 tablet by mouth in the morning.) 30 tablet 0 ALPRAZOLAM ORAL Take 2 mg by mouth in the morning and 2 mg in the evening. methocarbamoL (ROBAXIN) 500 mg tablet Take 1 tablet by mouth every 6 (six) hours as needed for Pain (scale 7-10) (MUSCLE SPASM). (Patient taking differently: Take 1.5 tablets by mouth in the morning and 1.5 tablets at noon and 1.5 tablets in the evening.) 20 tablet 0 REVIEW OF SYSTEMS (-)=Negative,(+)=Positive ROS per HPI PHYSICAL EXAMINATION Vitals: 11/01/24 1506 11/01/24 1814 11/01/24 1817 11/01/242000 BP: 136/70 (!) 139/94 114/71 BP Location: Right arm Patient Position: Supine Pulse: 83 88 83 Resp: 17 16 18 Temp: 36.2 ?C (97.2 ?F) 37.1 ?C (98.8 ?F) 36.2 ?C (97.2 ?F) TempSrc: SpO2: 99% 99% 99% Weight: 108.1 kg (238 lb 6.4 oz) Height: General: NAD, A&Ox4 (to person, place, time, and situation) Head: Normocephalic, atraumatic, anicteric Cardiovascular: Heart regular, rate, rhythm, no murmurs Respiratory: clear to auscultation bilaterally, no respiratory distress GI: abd soft, non-tender, non-distended, +BS; -g/r/r Skin: intact and warm, dry MSK: No bilateral LE pitting edema Psych: cooperative and mood/affect normal Neuro: Moving bilateral UE and LE spontaneously LABS - reviewed pertinent labs as below: Reviewed. IMAGING - reviewed, pertinent results as below: Hospital Encounter on 10/31/24 XR Chest 1 vw Narrative History: chest pain . Exam: XR CHEST 1 VW Date: 10/31/2024 10:00 PM Ordering provider: OLIVIA GARCIA Comparison: 10/12/2024. Findings: Frontal view of the chest is obtained. The cardiac silhouette is normal in size. There are mild left perihilar and bibasilar opacities, which are similar on the prior. No evidence of pleural effusion, pneumothorax, or overt CHF. Impression Impression: Mild left perihilar and bibasilar opacities, which are similar on the prior and could reflect atelectasis or infiltrate. RL: [id number] AFC: [id number] 11/01/2024 EKG with Sinus tachycardia, possible LA enlargement, Nonspecific ST abnormality, HR 107 BPM, Qtc 453 ms 11/02/2024 EKG NSR, possible left atrial enlargement, Qtc 444 ms. CHART REVIEW: pertinent information as below: Reviewed. ASSESSMENT/PLAN Charity Roca is a 44 year old female with PMH as listed above, admitted to the hospital with: C/f unstable angina CAD s/p PCI (09/2023) HTN HLD (10/2024 LDL 105) Tobacco Use Morbid Obesity Patient with reported history of CAD s/p PCI in 2023 presented to OSH with HTN urgency and chest pain with c/f unstable angina. Patient BP improved with PO antihypertensives and she was started on a heparin gtt, c/s ASA and Plavix, and transferred for possible LHC in AM. CXR with mild left perihilar and bibasilar opacities, similar to previous, TTE with LVEF 55-60%, impaired relaxation, Rap 0-5 mmHg. EKG on arrival with NSR, possible left atrial enlargement, Qtc 444 ms. Plan: - Admit to [facility] for possible LHC - C/w Heparin gtt - C/w ASA 81 mg QD, Plavix 75 mg QD - Increased Rosuvastatin to 40 mg QD - C/w Imdur 60 mg QD, consider increasing to 90 mg QD - NTG 0.4mg SL q5min prn angina - Morphine 2mg IV q4h prn angina - Telemetry, O2 per protocol, Electrolytes: K >4, Mg>2 - Patient's outpatient strip picker is Dr. Arthur PTSD Depression Anxiety Patient reported that she follows with January Roberson for psychiatric telehealth and Joanne Montes for PCP. Stated that she takes Xanax 2 mg BID (per PDMP Xanax 0.5 mg last dispensed/ordered 05/12/2024), haldol 2 mg QHS for insomnia, and Hydroxyzine 50 mg BIDPRN for breakthrough anxiety. Plan to medrec with January in AM and reduce xanax dose in the interim, patient amenable to plan. - Medrec with January Roberson in AM - C/w home Haldol 2 mg QHS, consider d/c as patient reported taking for insomnia - Xanax 0.5 mg BIDPRN for now Pain ControlledTylenol and Morphine Prophylaxis: DVT- heparin Stress Ulcer: famotidine Code Status: addressed: Full Code Farnaz Khoot, DO Department of Internal Medicine, PGY-2 I saw and examined the patient and agree with the resident's initial H &P as written by Dr. Nixon I actively participated in the decision-making process. Please see the resident's initial H&P for additional details. DOS 11/02/24 Rosario Virk MD, [facility] [employer] Division of Cardiovascular Medicine [facility] 2024-11-01 00:05:09 MEDICINE MEGADC ADMIT H&P Date of Service: 11/01/2024 CHIEF COMPLAINT: chest pain, nausea, vomiting, and shortness of breath Subjective History of Present Illness 44 year old female with a PMH of PTSD, anxiety, HTN, pancreatitis, CAD s/p stent, depression who presents to the ED secondary to chest pain with associated nausea, vomiting, and shortness of breath started hours prior to arrival. She describes as mid-sternal chest pain that radiates to the left arm/shoulder pain while at rest. She states that she often has chest pain about once a month. Usually when this happens, she takes Protonix, musculoskeletal relaxants, and tylenol which usually helps, however, not from this episode. Associated symptoms: shortness of breath, nausea, and vomiting. She took her protonix, ketorlac and it did not help. Engine House Helper: Dr. Arthur PAST MEDICAL HISTORY Past Medical History: Diagnosis Date Anxiety Hypertension PTSD (post-traumatic stress disorder) of family members. Past Surgical History: Procedure Laterality Date CHOLECYSTECTOMY TONSILLECTOMY Family History Problem Relation Age of Onset Heart Mother [place] in her 40s Heart Father [place] in his 60s ALLERGIES No Known Allergies MEDICATIONS No current facility-administered medications on file prior to encounter. Current Outpatient Medications on File Prior to Encounter Medication Sig Dispense Refill famotidine (PEPCID) 20 mg tablet Take 1 tablet by mouth in the morning and 1 tablet in the evening. 30 tablet 0 ondansetron 4 mg disintegrating tablet Take 1 tablet by mouth every 12 (twelve) hours as needed for Nausea and Vomiting (N/V). 8 tablet 0 azithromycin (ZITHROMAX Z-BEBETO) 250 mg tablet Take 1 tablet by mouth SEE-INSTRUCTIONS. Take 500 mg day 1, then 250 mg days 2 to 5. 6 tablet 0 predniSONE 20 mg tablet 1 PO BID x 4 days 8 tablet 0 dicyclomine 10 mg capsule Take 1 capsule by mouth 3 (three) times daily as needed for Abdominal pain. 15 capsule 0 proMETHazine 25 mg tablet Take 1 tablet by mouth every 6 (six) hours as needed for Nausea and Vomiting (N/V). 15 tablet 0 proMETHazine 25 mg tablet Take 1 tablet by mouth every 6 (six) hours as needed for Nausea and Vomiting (N/V). 15 tablet 0 ondansetron 4 mg disintegrating tablet Take 1 tablet by mouth every 8 (eight) hours as needed for Nausea and Vomiting (N/V). 15 tablet 0 phenazopyridine 200 mg tablet Take 1 tablet by mouth in the morning and 1 tablet at noon and 1 tablet in the evening. 9 tablet 0 ciprofloxacin HCl 500 mg tablet Take 1 tablet by mouth in the morning and 1 tablet in the evening. 20 tablet 0 ketorolac 10 mg tablet Take 1 tablet by mouth every 6 (six) hours as needed for Pain (scale 7-10). 16 tablet 0 ondansetron (ZOFRAN) 4 mg tablet Take 1 tablet by mouth every 8 (eight) hours as needed for Nausea and Vomiting (N/V). 12 tablet 0 phenazopyridine 200 mg tablet Take 1 tablet by mouth in the morning and 1 tablet at noon and 1 tablet in the evening. 9 tablet 0 traMADoL (ULTRAM) 50 mg tablet Take 1 tablet by mouth every 6 (six) hours as needed for Pain (scale 7-10). Indications: acute pain 20 tablet 0 dicyclomine 20 mg tablet Take 1 tablet by mouth 4 (four) times daily. 20 tablet 0 ondansetron 4 mg disintegrating tablet Take 1 tablet by mouth every 4 (four) hours as needed for Nausea and Vomiting (N/V). 20 tablet 0 polyethylene glycol 3350 (MIRALAX) 17 gram powder Take 1 Packet by mouth once daily as needed for Constipation. 10 Packet 0 Simethicone 125 mg Take 1 capsule by mouth after meals and at bedtime as needed for Gas. 20 capsule 0 ondansetron (ZOFRAN) 4 mg tablet Take 1 tablet by mouth every 8 (eight) hours as needed for Nausea and Vomiting (N/V). 12 tablet 0 proMETHazine 25 mg tablet Take 1 tablet by mouth every 6 (six) hours as needed for Nausea and Vomiting (N/V). 20 tablet 0 ALPRAZOLAM ORAL Take 2 mg by mouth in the morning and 2 mg in the evening. melatonin 10 mg Tab Take 1 tablet by mouth at bedtime. methocarbamoL (ROBAXIN) 500 mg tablet Take 1 tablet by mouth every 6 (six) hours as needed for Pain (scale 7-10) (MUSCLE SPASM). 20 tablet 0 traMADoL (ULTRAM) 50 mg [...] 1 tablet by mouth every evening. I attest that the foregoing medication list in the medical record is true, accurate and complete to the best of my knowledge. SOCIAL HISTORY Social History Socioeconomic History Marital status: Number of children: 0 Years of education: 12 Highest education level: High school graduate Occupational History Occupation: disabled Tobacco Use Smoking status: Every Day Types: Cigarettes Smokeless tobacco: Current Tobacco comments: In the process of quitting. Now smokes 5 cigarettes/ day from 2 packs per day REVIEW OF SYSTEMS Review of Systems Constitutional: Negative. HENT: Negative. Eyes: Negative. Respiratory: Positive for shortness of breath. Negative for apnea, cough, choking, chest tightness, wheezing and stridor. Breasts: Negative. Cardiovascular: Positive for chest pain. Negative for palpitations and leg swelling. Gastrointestinal: Positive for nausea and vomiting. Negative for abdominal distention, abdominal pain, anal bleeding, blood in stool, constipation, diarrhea and rectal pain. Genitourinary: Negative. Musculoskeletal: Negative. Skin: Negative. Neurological: Negative. Psychiatric/Behavioral: Negative. Endocrine: Endocrine negative Objective PHYSICAL EXAMINATION Vitals: 10/31/24 2300 10/31/24 2306 10/31/24 2330 11/01/24 0000 BP: (!) 152/124 (!) 152/124 (!) 122/39 Pulse: 93 96 95 94 Resp: 13 20 23 13 Temp: SpO2: 98% 99% 96% 94% Weight: Height: Physical Exam Vitals and nursing note reviewed. Constitutional: General: She is not in acute distress. Appearance: Normal appearance. She is not ill-appearing, toxic-appearing or diaphoretic. HENT: Head: Normocephalic and atraumatic. Right Ear: External ear normal. Left Ear: External ear normal. Nose: Nose normal. No congestion or rhinorrhea. Mouth/Throat: Mouth: Mucous membranes are moist. Pharynx: No oropharyngeal exudate or posterior oropharyngeal erythema. Eyes: General: No scleral icterus. Extraocular Movements: Extraocular movements intact. Conjunctiva/sclera: Conjunctivae normal. Pupils: Pupils are equal, round, and reactive to light. Cardiovascular: Rate and Rhythm: Normal rate and regular rhythm. Heart sounds: No murmur heard. No friction rub. No gallop. Pulmonary: Effort: Pulmonary effort is normal. No respiratory distress. Breath sounds: Normal breath sounds. No wheezing or rales. Chest: Chest wall: No tenderness. Abdominal: General: Abdomen is flat. Bowel sounds are normal. There is no distension. Palpations: Abdomen is soft. Tenderness: There is no abdominal tenderness. There is no guarding. Musculoskeletal: General: Normal range of motion. Cervical back: Normal range of motion and neck supple. Right lower leg: No edema. Left lower leg: No edema. Skin: General: Skin is warm and dry. Neurological: Mental Status: She is alert. Psychiatric: Mood and Affect: Mood normal. Behavior: Behavior normal. Thought Content: Thought content normal. Judgment: Judgment normal. LABS/IMAGING - reviewed History: chest pain . Exam: XR CHEST 1 VW Date: 10/31/2024 10:00 PM Ordering provider: OLIVIA GARCIA Comparison: 10/12/2024. Findings: Frontal view of the chest is obtained. The cardiac silhouette is normal in size. There are mild left perihilar and bibasilar opacities, which are similar on the prior. No evidence of pleural effusion, pneumothorax, or overt CHF. IMPRESSION Impression: Mild left perihilar and bibasilar opacities, which are similar on the prior and could reflect atelectasis or infiltrate. EKG: sinus rhythm Assessment & Plan Charity Roca is a 44 year old female with PMH as listed above, admitted to the hospital with: 1. Chest pain atypical/CAD: So, far EKG and troponin are negative for an acute myocardial infarction. CXR shows left perihilar and bibasilar opacities. -- Will order plavix, pain control, oxygen, nitroglycerin prn, and aspirin. -- Will continue to trend the troponin -- Echocardiogram -- Cardiology has been consulted -- Procalcitonin is pending prior to treating for a possible pneumonia 2. Hypertensive urgency: -- Will start lisinopril scheduled -- Intravenous hydralazine as needed Prophylaxis: DVT- enoxaparin Code Status: Full Code Smoking Cessation (Z71.6): Tobacco use: Yes, no smoking cassation therapy at this time. Disposition: Home OBS: Anticipate less than 2 midnight stays due to minimal intensive nursing care, intermittent monitoring, short-term intervention for the workup and treatment of... [facility] 2023-02-16 01:18:50 Formatting of this n ote [...] tablet 400 mg, 400 mg, Oral, QHS, Flkao Mercado MD acetaminophen (TYLENOL) tablet 1,000 mg, [...] the ACR Incidental Findings Committee;Journal of the [employer] Volume 7, Issue 10, Pages [phone], April 2010). CHEST 1 VW Result Date: [...] process is identified in the chest. RL: [id number] END OF REPORT Assessment and plan: Principal [...] discussed 3 minutes Disposition: admit to inpt --------- Signed: Flako Mercado MD 02/16/2023 IM-INTERNAL MEDICINE STAFF [facility] Procedure Notes Date/Time Note Provider Source 2024-11-03 14:54:32 Procedure(s): NH CATH PLMT L HRT & ARTS W/NJX & ANGIO IMG S&I; NH IV DOP EDILSON&/OR PRESS C/EVERETT RSRV JEFRY 1ST VSL; NH IV DOP EDILSON&/OR PRESS C/EVERETT RSRV JEFRY ADDL VSL Pre-Procedure Diagnose(s): Coronary artery disease involving [place] coronary artery of [place] heart with unstable angina pectoris Post-Procedure Diagnose(s): Coronary artery disease involving [place] coronary artery of [place] heart with unstable angina pectoris Left Heart Cath/Coronary Angiography Charity Roca Date of Service: 11/03/2024 2:55 PM Attending Physician: Dane Jurado MD Fellow: Dr. Jones Referring Physician: Dr. Sandra Procedures Performed: LHC/Coronary Angiogram: CPT 27303 FFR of mLAD: CPT 74963 FFR of mRCA: CPT 66652 Indication/Diagnosis: ACS ([place]/NSTEMI) Consent: Risks, benefits, alternatives and complications of the procedure discussed with the patient, who understood and agreed to proceed. Aseptic technique: Chlorprep Local Anesthesia: 1% lidocaine without epinephrine Sedation: Moderate Access site: right femoral artery Closure Method: Angio-Seal Sterile dressing: yes Complications: none Procedures: After patient identification/verification, the patient was thereafter transferred to the cath lab nurse table. The access site was prepped and draped in usual sterile fashion. After administering sedation, time out was done. Under ultrasound guidance, using modified Seldinger technique, the right femoral artery was accessed using a micropuncture kit. The access was upgraded to a 6 Fr sheath. A 6 Fr JL 4.0 catheter was then used to cannulate the LM. Selective coronary angiography was done using several views. A 6 Fr JR 4 was used to cross the AV with the J wire and the catheter was advanced into the LV where selective LVEDP was measured. The catheter was then used to cannulate the RCA and selective coronary angiography was done using multiple views. A decision was reached to proceed with FFR of the mLAD and mRCA. Anticoagulation was thus administered. ACT noted to be > 300. A 6 Fr EBU 3.0 Guide was then advanced to the LM. The FFR wire was prepped and FFR of mLAD was done. Angiography was then done. The guide was then exchanged for a 6 Fr JR 4.0 Guide, and the FFR wire was advanced via the Guide into the ascending aorta, where Pd/Pa equalization was again done. FFR of the mRCA was then done. Final angiography was then done. The attending physician was present throughout the procedure and provided the highest level of supervision. Findings: Coronary dominance: right Left main: Large, long, patent LAD: Large, proximal mild LI then 30% before D1, mid mild disease then focal 50-60% (FFR Baseline of 0.93, peak of 0.84 @ 140 mcg/Kg/min Adenosine IV)before D2, mid mil disease, then intramyocardial segment with bridging noted, distal vessel with mild LI wraps around the apex. D1: Medium size, ostial 80% then mild LI D2: Large, proximal to mid mild LI, mid vessel then gives off two tortuous branches with mild LI Septals: Multiple, small RI: Small to medium size, mild LI LCX: Large, co-dominant, proximal ectasia with mild disease , mid mild LI, mid to distal mild disease OM1: Medium size, proximal mild LI , mid tortuosity, then mid to distal mild LI OM2: Small OM3: Medium size, mild LI OM4,5: Small LPL: Large, mild LI RCA: Large, co-dominant, proximal mild LI, mid 50% (FFR Baseline of 1.00, peak of 0.96@ 140 mcg/Kg/min Adenosine IV), mid to distal mild LI, distal stent into proximal PDA with with mild ISR PDA: Large, proximal stent with mild ISR, mid to distal mild LI PLB: Small LVEDP: 11 mmHg Grafts: Post-Procedure Sedation Addendum Immediately prior to start of sedation, the patient was evaluated and there was no change from the pre-procedure evaluation. I was present and directed medical care. The patient underwent moderate sedation for the procedure. The medications administered were recorded in the MAR; oxygenation, ventilation and circulation were monitored continuously and were recorded in the EMR. I evaluated the patient after the procedure. The patient was evaluated immediately as recovering from sedation. Complications: None Impression: Patent dRCA stent Moderate mLAD disease. Negative FFR Moderate mRCA disease. Negative FFR Plan: Monitor on Telemetry Floor ASA 81 mg daily She is currently on Plavix 75 mg daily as well Continue Crestor 40 mg daily Continue Metoprolol and Imdur Aggressive medical management Findings and plan discussed with patient Dane Jurado MD 11/03/2024 2:55 PM IM-INTERVENTIONAL CARDIOLOGY STAFF [facility] Notes <thead> Date/Time Note Provider Source 2024-11-11 01:03:17 Pt given printed and verbal discharge instructions regarding left sided abdominal pain, anemia, hypokalemia, uterine leiomyoma, adrenal nodule. Pt verbalized understanding of instructions, pt awake alert oriented, resp reg unlabored, skin w/d, color appropriate for race, moves all ext well,pt encouraged to follow up with pcp and or specialist. Advised to seek medical attention for new/prolonged/worsening of symptoms. No adverse reaction to meds given in ER noted upon discharge PIV d'cd, dressing to site, catheter in tact. Awake, alert oriented, resp reg unlabored, skin w/d, pt leaving amb with steady gait, in no apparent distress, Angelita Patino RN [facility] 2024-11-10 19:56:35 Pt given urine cup and placed back into lobby with instructions for collecting urine sample. [facility] 2024-11-10 19:52:11 Pt arrived ambulatory without assist. Pt c/o left lower abd pain that started around 12pm today. Shaneka Atkinson RN [facility] - [facility] 2024-11-10 19:51:00 [facility] Emergency Department Note Patient Name: Charity Roca Date of : 1980 44 year old female Treatment Room: [facility] ED [facility] Primary Care Physician: Joanne Montes Patient Escorted by: Family [5] Mode of Arrival: Personal means [1] EMS Treatment Prior to ED Arrival: [facility] treatment: None Travel and Exposure Screening: Symptoms [...] of Present Illness: Charity Roca is a 44 year old female who presents to the ED with left mid abdominal pain that radiates to left costophrenic region X 1 day. Pain is described sharp constant rated at 9/10. Has nausea. No vomiting. No fever or chills. No trauma or injuries. Denies any constipation or diarrhea. Pt has taken Tylenol and a Ketorolac without any improvement in pain. Denies any urinary symptoms. 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 used: No Abdominal Pain Pain location: LUQ and LLQ Pain quality: sharp Pain radiates to: L flank Pain severity: Severe Onset quality: Gradual Duration: 1 day Timing: Sporadic Progression: Worsening Chronicity: New Context: previous surgery Context: not alcohol use, not awakening from sleep, not diet changes, not eating, not laxative use, not medication withdrawal, not recent illness, not recent travel, not retching, not sick contacts, not suspicious food intake and not trauma Relieved by: Nothing Worsened by: Nothing Ineffective treatments: Acetaminophen Associated symptoms: anorexia Associated symptoms: no constipation, no diarrhea, no dysuria, no fever, no flatus, no hematemesis, no hematochezia, no hematuria, no melena, no nausea, no vaginal bleeding, no vaginal discharge and no vomiting Risk factors: recent hospitalization Risk factors: no alcohol abuse, no aspirin use, no NSAID use, not obese and not Past Medical History/Immunizations: Past Medical History: Diagnosis [...] Review of Systems Constitutional: Negative. Negative for fever. HENT: Negative. Eyes: Negative. Respiratory: Negative. Breasts: Negative. Cardiovascular: Negative. Gastrointestinal: Positive for abdominal pain and anorexia. Negative for abdominal distention, constipation, diarrhea, flatus, hematemesis, hematochezia, melena, nausea and vomiting. Genitourinary: Negative. Negative for dysuria, hematuria, vaginal bleeding and vaginal discharge. Musculoskeletal: Negative. Skin: Negative. Neurological: Negative. Psychiatric/Behavioral: Negative. All other systems reviewed and are negative. Endocrine: Endocrine negative Physical Exam: ED Triage Vitals [11/10/241952] Weight 108.4 kg (239 lb) Actual or estimated Estimated by patient/family report Height 1.575 m (5' 2") BP (!) 169/117 Pulse 104 Resp 18 Temp 36.4 ?C (97.5 ?F) Temp source Oral SpO2 100 % Measured on Room air Physical Exam Vitals and nursing note reviewed. Constitutional: General: She is not in acute distress. Appearance: Normal appearance. She is well-developed. She is obese. She is not ill-appearing, toxic-appearing or diaphoretic. HENT: Head: Normocephalic and atraumatic. Nose: Nose normal. No congestion or rhinorrhea. Mouth/Throat: Mouth: Mucous membranes are moist. Pharynx: Oropharynx is clear. No oropharyngeal exudate or posterior oropharyngeal erythema. Eyes: General: No scleral icterus. Right eye: No discharge. Left eye: No discharge. Conjunctiva/sclera: Conjunctivae normal. Pupils: Pupils are equal, [...] There is no mass. Tenderness: There is no abdominal tenderness. There [...] content normal. Judgment: Judgment normal. Radiology: CT Abdomen pelvis w contrast Final Result Exam: CT Abdomen and Pelvis with contrast, 11/10/2024 8:45 PM. Ordering Physician: OLIVIA GARCIA. History: Abdominal pain, acute, nonlocalized LEFT SIDED ABDOMINAL PAIN X 1 DAY . Comparison: CT abdomen pelvis 10/23/2024. Technique: CT abdomen and pelvis was obtained with intravenous contrast. CT was performed according to ALARA (As Low As Reasonably Achievable). Technical Quality: Adequate. Findings: LOWER CHEST: Mild bibasilar atelectasis. ABDOMEN/PELVIS: Liver: No focal lesion. Gallbladder/biliary: Postcholecystectomy. Prominence of the intra- and extrahepatic biliary system consistent with prior cholecystectomy. Pancreas: Normal. Spleen: Small calcified granuloma. Adrenal glands: Unchanged left adrenal nodule measuring 2.9 cm. Kidneys and ureters: No stone or hydronephrosis. Subcentimeter hypoattenuating lesions are too small to fully characterize but statistically represent small cyst. Bladder: Normal. Reproductive organs: Fibroid appearance of the uterus. No adnexal mass. Stomach/bowel: No bowel obstruction. No bowel wall thickening. Normal appendix. Lymph nodes: No lymphadenopathy. Peritoneum: No organized fluid collection or free air. Vessels: Unremarkable. MUSCULOSKELETAL: Soft tissues: Unremarkable. Bones: No acute osseous abnormality. IMPRESSION Impression: 1. No acute finding in the abdomen or pelvis. 2. Additional chronic findings as detailed above. RL: [id number] End of Report Lab Results: Lab Results CBC WITH DIFF - Abnormal Result Value Ref Range WBC 7.85 4.30 - 11.10 10*3/?L RBC 4.33 3.93 - 5.25 10*6/?L HGB 11.3 (*) 11.6 - 15.0 g/dL HCT 34.8 (*) 35.7 - 45.2 % MCV 80.4 (*) 80.6 - 95.5 fL MCH 26.1 25.9 - 32.8 pg MCHC 32.5 31.6 - 35.1 g/dL RDW-SD 52.4 (*) 39.0 - 49.9 fL RDW-CV 17.9 (*) 12.0 - 15.5 % PLT 337 166 - 358 10*3/?L MPV 9.6 9.5 - 12.9 fL NRBC/100 WBC 0.0 0.0 - 10.0 /100 WBCs NRBC x10 3 <0.01 10*3/?L GRAN MAT (NEUT) % 49.2 % IMM GRAN % 0.10 % LYMPH % 40.4 % MONO % 7.0 % EOS % 2.8 % BASO % 0.5 % GRAN MAT x10 3 (ANC) 3.86 1.88 - 7.09 10*3/uL IMM GRAN x10 3 <0.03 0.00 - 0.06 10*3/uL LYMPH x10 3 3.17 1.32 - 3.29 10*3/uL MONO x10 3 0.55 0.33 - 0.92 10*3/uL EOS x10 3 0.22 0.03 - 0.39 10*3/uL BASO x10 3 0.04 0.01 - 0.07 10*3/uL COMP. METABOLIC PANEL (74761) - Abnormal NA 137 135 - 145 mmol/L K 3.2 (*) 3.5 - 5.0 mmol/L CL 107 98 - 108 mmol/L CO2 TOTAL 23 23 - 31 mmol/L AGAP 7 2 - 16 BUN 8 7 - 23 mg/dL GLUCOSE 93 70 - 110 mg/dL CREATININE 0.59 0.50 - 1.04 mg/dL TOTAL BILI 0.2 0.1 - 1.1 mg/dL CALCIUM 9.0 8.6 - 10.6 mg/dL T PROTEIN 6.5 6.3 - 8.2 g/dL ALBUMIN 3.8 3.5 - 5.0 g/dL ALK PHOS 56 34 - 122 U/L ALTv 14 5 - 35 U/L AST(SGOT) 16 13 - 40 U/L eGFR 113.4 mL/min/1.73m2 URINALYSIS - Abnormal APPEARANCE Slightly Cloudy (*) Clear COLOR Yellow Yellow PH 5.0 4.8 - 8.0 SP GRAVITY 1.025 1.003 - 1.030 GLU U QUAL Normal Normal BLOOD Negative Negative KETONES Negative Negative PROTEIN Negative Negative UROBILIN Normal Normal BILIRUBIN Negative Negative NITRITE Negative Negative LEUK MARC Negative Negative RBC/HPF 1 0 - 3 HPF WBC/HPF 2 0 - 5 HPF BACTERIA Negative Negative SQ EPITH 8 HPF POCT TEST - Normal POCT PREG Negative On board controls acceptable with C Line Yes POCT PREG LOT # [id number] POCT PREG TEST DATE 01/28/2026 LIPASE - Normal LIPASE 108 0 - 220 U/L Orders and Treatments: Orders Placed This Encounter Procedures CT Abdomen pelvis w contrast Cbc with Diff Comp. Metabolic Panel (87546) Urinalysis POCT TEST Lipase Orders Placed This Encounter Medications morpHINE (4 mg/mL) injection 4 mg ondansetron (ZOFRAN (PF)) injection 4 mg iopamidol (ISOVUE 370-500 mL) injection 80 mL morpHINE (4 mg/mL) injection 4 mg KCL (KLOR-CON M20) tablet 40 mEq First Provider Eval: ED Events Date/Time Event User Comments 11/10/241999 First Provider Evaluation OLIVIA GARCIA MD -- 11/10/241999 Medical Screening Begins OLIVIA GARCIA MD -- ED COURSE Diagnosis/Impression as of 11/11/24 0024 Left sided abdominal pain Mild anemia Hypokalemia Uterine leiomyoma, unspecified location Adrenal nodule Procedures: Procedures MDM: Medical Decision Making Charity Roca is a 44 year old female with numerous medical conditions as listed above who presents to the ED with left sided abdominal pain Problems Addressed: Adrenal nodule: chronic illness or injury Details: Pt has follow-up appointment scheduled with Endocrinology for further evaluation Hypokalemia: acute illness or injury Details: K+ replenished in the ED Discussed sources of K+ with pt Left sided abdominal pain: acute illness or injury Details: Differentials considered include but not limited to Acute pyelonephritis, Pneumonia, Ureteral calculus, Diverticulitis, musculoskeletal pain Mild anemia: chronic illness or injury Uterine leiomyoma, unspecified location: chronic illness or injury Details: Will follow-up with [facility] Amount and/or Complexity of Data Reviewed Labs: ordered. Radiology: ordered. Risk OTC drugs. Prescription drug management. Parenteral controlled substances. Flowsheet Documentation: Scoring Tools: No data recorded Disposition/Condition: ED Disposition ED Disposition Discharge Condition Stable Comment -- Discharge Medications: Patient's Medications START taking these medications No medications on file CONTINUE taking these medications which have NOT CHANGED ASPIRIN 81 MG EC TABLET Take 1 tablet by mouth in the morning. CLOPIDOGREL 75 MG TABLET Take 1 tablet by mouth in the morning. FAMOTIDINE (PEPCID) 20 MG TABLET Take 1 tablet by mouth in the morning and 1 tablet in the evening. HALOPERIDOL 2 MG TABLET Take 1 tablet by mouth at bedtime. HYDROXYZINE 50 MG TABLET Take 1 tablet by mouth every 12 (twelve) hours as needed for Anxiety. ISOSORBIDE MONONITRATE 60 MG 24 HR TABLET Take 1 tablet by mouth in the morning. LISINOPRIL 40 MG TABLET Take 1 tablet by mouth in the morning. METHOCARBAMOL (ROBAXIN) 500 MG TABLET Take 1 tablet by mouth every 6 (six) hours as needed for Pain (scale 7-10) (MUSCLE SPASM). METOPROLOL TARTRATE 25 MG TABLET Take 0.5 tablets by mouth in the morning and 0.5 tablets in the evening. ROSUVASTATIN 40 MG TABLET Take 1 tablet by mouth at bedtime. START taking Modified Medications as Prescribed No medications on file STOP taking these medications No medications on file Follow-up: Contact information for follow-up Joanne Montes Relationship: PCP - General Zazueta [address] [facility] [id number] Electronically signed by: Olivia Garcia MD 11/11/24 0024 [facility] 2024-11-04 10:58:35 Pt tolerating meals Up with minimal assist Right site clean, dry and intact; covered with gauze and tegaderm Laya Langley RN [facility] 2024-11-04 06:19:25 Problem: Falls, Risk of Goal: Absence of falls Outcome: Progressing as expected Problem: Discharge Planning Goal: Adequate for discharge Outcome: Progressing as expected Goal: Adequate to move to next level of care Outcome: Progressing as expected Goal: Knowledge of medication management Outcome: Progressing as expected Problem: Cardiac Output - Decreased Goal: Absence of signs and symptoms of decreased cardiac output Outcome: Progressing as expected Problem: Pain Goal: Control of pain at or below patient's documented comfort goal Outcome: Progressing as expected Goal: Reduction in pain sensation Outcome: Progressing as expected Problem: Skin integrity Impaired (Risk or Actual) Goal: Prevention of new skin breakdown Outcome: Progressing as expected Anuradha Heard RN [facility] 2024-11-03 19:16:34 Problem: Falls, Risk of Goal: Absence of falls Outcome: Progressing as expected Problem: Discharge Planning Goal: Adequate to move to next level of care Outcome: Progressing as expected Goal: Knowledge of medication management Outcome: Progressing as expected Renato Mott RN [facility] 2024-11-03 04:24:10 Problem: Falls, Risk of Goal: Absence of falls Outcome: Progressing as expected Problem: Skin integrity Impaired (Risk or Actual) Goal: Prevention of new skin breakdown Outcome: Progressing as expected Problem: Infection Risk Goal: Absence of infection Outcome: Progressing as expected Problem: Respiratory Function - Impaired Goal: Able to cough effectively Outcome: Progressing as expected Goal: Adequate oxygenation Outcome: Progressing as expected Goal: Adequate work of breathing Outcome: Progressing as expected Goal: Patent airway Outcome: Progressing as expected Omaira Diaz RN [facility] 2024-11-02 07:22:14 Problem: Falls, Risk of Goal: Absence of falls 11/02/2024720 by Omaira Diaz RN Outcome: Progressing as expected 11/02/2024719 by Omaira Diaz RN Outcome: Progressing as expected Problem: Discharge Planning Goal: Adequate for discharge 11/02/2024720 by Omaira Diaz RN Outcome: Progressing as expected 11/02/2024719 by Omaira Diaz RN Outcome: Progressing as expected Goal: Adequate to move to next level of care 11/02/2024720 by Omaira Diaz RN Outcome: Progressing as expected 11/02/2024719 by Omaira Diaz RN Outcome: Progressing as expected Goal: Knowledge of medication management 11/02/2024720 by Omaira Diaz RN Outcome: Progressing as expected 11/02/2024719 by Omaira Diaz RN Outcome: Progressing as expected Problem: Cardiac Output - Decreased Goal: Absence of signs and symptoms of decreased cardiac output 11/02/2024720 by Omaira Diaz RN Outcome: Progressing as expected 11/02/2024719 by Omaira Diaz RN Outcome: Progressing as expected Problem: Pain Goal: Control of pain at or below patient's documented comfort goal 11/02/2024720 by Omaira Diaz RN Outcome: Progressing as expected 11/02/2024719 by Omaira Diaz RN Outcome: Progressing as expected Goal: Reduction in pain sensation 11/02/2024720 by Omaira Diaz RN Outcome: Progressing as expected 11/02/2024 07 by Omaira Diaz RN Outcome: Progressing as expected Problem: Skin integrity Impaired (Risk or Actual) Goal: Prevention of new skin breakdown 11/02/2024720 by Omaira Diaz RN Outcome: Progressing as expected 11/02/2024 07 by Omaira Diaz RN Outcome: Progressing as expected Problem: Infection Risk Goal: Absence of infection 11/02/2024720 by Omaira Diaz RN Outcome: Progressing as expected 11/02/2024719 by Omaira Diaz RN Outcome: Progressing as expected Problem: Respiratory Function - Impaired Goal: Able to cough effectively 11/02/2024720 by Omaira Diaz RN Outcome: Progressing as expected 11/02/2024719 by Omaira Diaz RN Outcome: Progressing as expected Goal: Adequate oxygenation 11/02/2024720 by Omaira Diaz RN Outcome: Progressing as expected 11/02/2024719 by Omaira Diaz RN Outcome: Progressing as expected Goal: Adequate work of breathing 11/02/2024720 by Omaira Diaz RN Outcome: Progressing as expected 11/02/2024719 by Omaira Diaz RN Outcome: Progressing as expected Goal: Patent airway 11/02/2024720 by Omaira Diaz RN Outcome: Progressing as expected 11/02/2024719 by Omaira Diaz RN Outcome: Progressing as expected [facility] 2024-11-02 07:21:23 Problem: Falls, Risk of Goal: Absence of falls Outcome: Progressing as expected Problem: Discharge Planning Goal: Adequate for discharge Outcome: Progressing as expected Goal: Adequate to move to next level of care Outcome: Progressing as expected Goal: Knowledge of medication management Outcome: Progressing as expected Problem: Cardiac Output - Decreased Goal: Absence of signs and symptoms of decreased cardiac output Outcome: Progressing as expected Problem: Pain Goal: Control of pain at or below patient's documented comfort goal Outcome: Progressing as expected Goal: Reduction in pain sensation Outcome: Progressing as expected Problem: Skin integrity Impaired (Risk or Actual) Goal: Prevention of new skin breakdown Outcome: Progressing as expected Problem: Infection Risk Goal: Absence of infection Outcome: Progressing as expected Problem: Respiratory Function - Impaired Goal: Able to cough effectively Outcome: Progressing as expected Goal: Adequate oxygenation Outcome: Progressing as expected Goal: Adequate work of breathing Outcome: Progressing as expected Goal: Patent airway Outcome: Progressing as expected [facility] 2024-11-01 14:02:33 Report given to JAMES Trejo. Susie Willard RN [facility] 2024-11-01 08:41:16 Images from the original note were not included. Pharmacy Recommendations for Patient Admission: Consider lowering dose of famotidine to 20mg once daily as patient has been taking this dose at home. The [facility] medication list has been updated and reflected in the chart below. Please use the [facility] Med List for ordering home doses during admission. Patient Adherence: Adherent to all medications. Source(s) used in interview: Patient Interview limitations: None Medications Added Medications Removed Medications Modified Alprazolam dose reduced to 1mg BID prn Famotidine ordered as 20mg BID Methocarbamol ordered as 500mg Q6H prn Allergies as of 10/31/2024 (No Known Allergies) Pharmacy Updated [facility] Med List Medication Sig aspirin 81 mg EC tablet Take 1 tablet by mouth in the morning. clopidogreL 75 mg tablet Take 1 tablet by mouth in the morning. haloperidoL 2 mg tablet Take 1 tablet by mouth at bedtime. hydrOXYzine 50 mg tablet Take 1 tablet by mouth every 12 (twelve) hours as needed for Anxiety. isosorbide mononitrate 60 mg 24 hr tablet Take 1 tablet by mouth in the morning. rosuvastatin 20 mg tablet Take 1 tablet by mouth at bedtime. famotidine (PEPCID) 20 mg tablet Take 1 tablet by mouth in the morning and 1 tablet in the evening. (Patient taking differently: Take 1 tablet by mouth in the morning.) ALPRAZOLAM ORAL Take 2 mg by mouth in the morning and 2 mg in the evening. methocarbamoL (ROBAXIN) 500 mg tablet Take 1 tablet by mouth every 6 (six) hours as needed for Pain (scale 7-10) (MUSCLE SPASM). (Patient taking differently: Take 1.5 tablets by mouth in the morning and 1.5 tablets at noon and 1.5 tablets in the evening.) Outpatient Pharmacy Contact Information: [facility] [id number] - [place], [place] - [address] [facility] [id number] [facility] - [place], [place] [address] [facility] [address] [facility]/pharmacy #[id number] [facility] [address] [place] [id number] Thank you for the opportunity to participate in the care of this patient. Surekha Rowland RPH 8:38 AM, 11/01/2024 [facility] Department of Pharmacy - [facility] Phone: ADC: [phone] Surekha Rowland [facility] 2024-11-01 01:15:13 Problem: Falls, Risk of Goal: Absence of falls Outcome: Progressing as expected Problem: Discharge Planning Goal: Adequate for discharge Outcome: Progressing as expected Goal: Adequate to move to next level of care Outcome: Progressing as expected Goal: Knowledge of medication management Outcome: Progressing as expected Problem: Cardiac Output - Decreased Goal: Absence of signs and symptoms of decreased cardiac output Outcome: Progressing as expected Problem: Pain Goal: Control of pain at or below patient's documented comfort goal Outcome: Progressing as expected Goal: Reduction in pain sensation Outcome: Progressing as expected Problem: Skin integrity Impaired (Risk or Actual) Goal: Prevention of new skin breakdown Outcome: Progressing as expected Problem: Venous Thromboembolism, (actual or risk of) Goal: Absence of venous thromboembolism (Risk) Outcome: Progressing as expected Problem: Infection Risk Goal: Absence of infection Outcome: Progressing as expected [facility] 2024-11-01 00:27:06 Patient states pain to chest no 6/10-appears much more comfortable, Bp normotensive. Transported via W/C to 2217. Patient alert, warm, dry, pink, in no distress upon departure from ER [facility] 2024-11-01 00:22:38 Nurse Report Report given to Bhupinder RAMIREZ. Chief complaint, assessment findings, infusion verify and orders reviewed. Plan of care discussed at bedside with patient. Patient verbalized understanding. MAGGIE CACERES RN [facility] 2024-10-31 23:15:00 Patient continues to C/O persistent sharp midsternal chest pain /. Medicated as ordered with GI cocktail po and Morphine 4 mg IV. [facility] 2024-10-31 22:15:00 Dr Garcia at bedside. Medicated with NTG 0.4 mg Sl for sharp chest pain 10/10 without relief. Patient then medicated with Zofran 4 mg Iv and Morphine 4 mg IV as ordered. Patient anxious, hypertensive. [facility] 2024-10-31 21:36:50 C/O onset sharp midsternal chest pain that radiates to left arm, left shoulder, and left scapula area-has been steadily worsening. Has had nausea and vomiting. Patient has had NH in the past, has cardiac stent X1 placed in September of last year. O2 at 2 liters/min placed without improvement to chest pain. Maggie Caceres RN [facility] - Health 2024-10-31 21:24:00 Associated Order(s): EKG-12 Lead ROUTINE ONCE Pre-Procedure Diagnose(s): Chest pain, unspecified type Post-Procedure Diagnose(s): Chest pain, unspecified type [facility] Emergency Department Note Patient Name: Charity Roca Date of : 1980 44 year old female Treatment Room: [place] [address] Primary Care Physician: Joanne Montes Patient Escorted by: Family [5] Mode of Arrival: Personal means [1] EMS Treatment Prior to ED Arrival: [facility] treatment: Other (comment) [facility] treatment comments: Protoniz, 4 baby ASA, Toradol Travel and Exposure Screening: Symptoms Does patient have any of these symptoms?: (not recorded) Exposure Screening Has patient had contact with someone with a communicable disease in the last month?: (not recorded) Diseases exposed to:: (not recorded) Is Patient ?: (not recorded) Exposure Date: (not recorded) Chief Complaint: Chief Complaint Patient presents with Chest Pain History of Present Illness: Charity Roca is a 44 year old female with numerous medical conditions as listed below who presents to the ED with chest pain X 2 hours. Pain is localized to mid sternum and radiates to left shoulder blade. Pain is sharp, constant, rated as 10/10. No SOB. Pt reports that she had been vomiting about five times today. Pt's [employer] in [place]. No known aggravating or relieving factors. Pt has taken ASA 324 mg [facility] in the ED. Pt smokes 1/3PPD , No ETOH. Deneis any illcit drug use. No prolonged immobilization. No OCA. No leg edema or calf pain. Deneis any URI symptoms. 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 used: No Chest Pain Pain location: Epigastric Pain quality: sharp Pain radiates to: L shoulder Pain severity: Severe Duration: 2 hours Timing: Constant Progression: Unchanged Chronicity: New Context: at rest Context: not breathing, not eating, not lifting, not movement, not raising an arm, not stress and not trauma Relieved by: Nothing Worsened by: Nothing Ineffective treatments: Aspirin and nitroglycerin Associated symptoms: anxiety Associated symptoms: no claudication, no cough, no diaphoresis, no dizziness, no fatigue, no lower extremity edema, no near-syncope, no numbness, no orthopnea, no palpitations, no shortness of breath and no syncope Risk factors: coronary artery disease, hypertension, obesity and smoking Past Medical History/Immunizations: Past Medical History: Diagnosis Date Anxiety Hypertension PTSD (post-traumatic stress disorder) of family members. Depression CAD S/P Stent X 06 September 2023 Q-wave [place] Tetanus received in last 5 years: Unknown Childhood immunizations: Up-to-date Allergies: No Known Allergies Past Social History: Tobacco Use Every Day; Types: Cigarettes Smokeless Tobacco: Current user of smokeless tobacco. Comments: In the process of quitting. Now smokes 5 cigarettes/ day from 2 packs per day Past Surgical History: Past Surgical History: Procedure Laterality Date CHOLECYSTECTOMY TONSILLECTOMY Cardiac Cath Review of Systems: Review of Systems Constitutional: Negative. Negative for diaphoresis and fatigue. HENT: Negative. Eyes: Negative. Respiratory: Negative. Negative for cough and shortness of breath. Breasts: Negative. Cardiovascular: Positive for chest pain. Negative for palpitations, orthopnea, claudication, leg swelling, syncope and near-syncope. Gastrointestinal: Negative. Genitourinary: Negative. Musculoskeletal: Negative. Skin: Negative. Neurological: Negative. Negative for dizziness and numbness. Psychiatric/Behavioral: Negative. All other systems reviewed and are negative. Endocrine: Endocrine negative Physical Exam: ED Triage Vitals Weight 10/31/242128 108.9 kg (240 lb) Actual or estimated 10/31/242128 Actual Height 10/31/242128 1.575 m (5' 2") BP 10/31/242128 (!) 162/140 Pulse 10/31/242128 132 Resp 10/31/242128 17 Temp 10/31/242132 36.8 ?C (98.2 ?F) Temp source 11/01/24 0357 TEMPORAL ART SpO2 04/26/25 2129 100 % Measured on 10/31/249 Room air Physical Exam Vitals and nursing note reviewed. Constitutional: General: She is not in acute distress. Appearance: Normal appearance. She is well-developed. She is obese. She is not ill-appearing, toxic-appearing or diaphoretic. HENT: Head: Normocephalic and atraumatic. Right Ear: External ear normal. Nose: Nose normal. No congestion or rhinorrhea. Mouth/Throat: Mouth: Mucous membranes are moist. Pharynx: [...] and neck supple. No rigidity or tenderness. Lymphadenopathy: Cervical: No cervical adenopathy. Skin: General: Skin is warm and dry. Capillary Refill: Capillary refill takes less than 2 seconds. Coloration: Skin is pale. Skin is not jaundiced. Findings: No bruising, erythema, lesion or rash. [...] Thought content normal. Judgment: Judgment normal. Radiology: XR Chest 1 vw Final Result History: chest pain . Exam: XR CHEST 1 VW Date: 10/31/2024 10:00 PM Ordering provider: OLIVIA GARCIA Comparison: 10/12/2024. Findings: Frontal view of the chest is obtained. The cardiac silhouette is normal in size. There are mild left perihilar and bibasilar opacities, which are similar on the prior. No evidence of pleural effusion, pneumothorax, or overt CHF. IMPRESSION Impression: Mild left perihilar and bibasilar opacities, which are similar on the prior and could reflect atelectasis or infiltrate. RL: 781 AFC: [id number] Lab Results: Lab Results COMP. METABOLIC PANEL (69714) - Abnormal Result Value Ref Range NA 138 135 - 145 mmol/L K 3.9 3.5 - 5.0 mmol/L CL 105 98 - 108 mmol/L CO2 TOTAL 22 (*) 23 - 31 mmol/L AGAP 11 2 - 16 BUN 10 7 - 23 mg/dL GLUCOSE 95 70 - 110 mg/dL CREATININE 0.59 0.50 - 1.04 mg/dL TOTAL BILI 0.7 0.1 - 1.1 mg/dL CALCIUM 9.3 8.6 - 10.6 mg/dL T PROTEIN 8.3 (*) 6.3 - 8.2 g/dL ALBUMIN 4.7 3.5 - 5.0 g/dL ALK PHOS 60 34 - 122 U/L ALTv 15 5 - 35 U/L AST(SGOT) 27 13 - 40 U/L eGFR 113.4 mL/min/1.73m2 CBC WITH DIFF - Abnormal WBC 13.30 (*) 4.30 - 11.10 10*3/?L RBC 5.11 3.93 - 5.25 10*6/?L HGB 13.3 11.6 - 15.0 g/dL HCT 41.2 35.7 - 45.2 % MCV 80.6 80.6 - 95.5 fL MCH 26.0 25.9 - 32.8 pg MCHC 32.3 31.6 - 35.1 g/dL RDW-SD 53.7 (*) 39.0 - 49.9 fL RDW-CV 18.4 (*) 12.0 - 15.5 % PLT 443 (*) 166 - 358 10*3/?L MPV 9.5 9.5 - 12.9 fL NRBC/100 WBC 0.0 0.0 - 10.0 /100 WBCs NRBC x10 3 <0.01 10*3/?L GRAN MAT (NEUT) % 61.6 % IMM GRAN % 0.50 % LYMPH % 30.4 % MONO % 5.6 % EOS % 1.4 % BASO % 0.5 % GRAN MAT x10 3 (ANC) 8.21 (*) 1.88 - 7.09 10*3/uL IMM GRAN x10 3 0.06 0.00 - 0.06 10*3/uL LYMPH x10 3 4.04 (*) 1.32 - 3.29 10*3/uL MONO x10 3 0.74 0.33 - 0.92 10*3/uL EOS x10 3 0.19 0.03 - 0.39 10*3/uL BASO x10 3 0.06 0.01 - 0.07 10*3/uL TROPONIN I - Normal TROPONIN I 0.004 <=0.034 ng/mL LIPASE - Normal LIPASE 98 0 - 220 U/L Orders and Treatments: Orders Placed This Encounter Procedures XR Chest 1 vw TROPONIN I COMP. METABOLIC PANEL (42380) LIPASE, SERUM CBC WITH DIFF POCT Test Cbc with Diff Basic Metabolic Panel (NA, K, CL, CO2, GLUCOSE, BUN, CREATININE, CA) Troponin I Procalcitonin Influenza A B RSV COVID NAAT Lab Only COVID Interpretation N-Terminal Pro-Bnp Lipid Panel (33475)(Total Cholesterol, Triglycerides, HDL) Glycosylated Hemoglobin (A1C) Urinalysis Urine Culture Prothrombin Time (PT) / INR aPTT aPTT (for use with Heparin Infusion) CBC Without DIFF MRSA / MSSA SCREEN BY PCR, NARES CBC with Differential Basic Metabolic Panel (NA, K, CL, CO2, GLUCOSE, BUN, CREATININE, CA) Magnesium Serum Phosphorus Serum Thyroid Stimulating Hormone Troponin I Cbc with Diff Basic Metabolic Panel (NA, K, CL, CO2, GLUCOSE, BUN, CREATININE, CA) Magnesium Consult Cardiology O2 Per Protocol Orders Placed This Encounter Medications nitroglycerin (NITROSTAT) sublingual tablet 0.4 mg ondansetron (ZOFRAN (PF)) injection 4 mg morpHINE (4 mg/mL) injection 4 mg maalox/diphenhydrAMINE:lido caine2 %viscous 1:1:1: suspension (COMPOUNDED) morpHINE (4 mg/mL) injection 4 mg DISCONTD: enoxaparin (LOVENOX) injection 40 mg DISCONTD: acetaminophen (TYLENOL) tablet 650 mg ondansetron (ZOFRAN (PF)) injection 4 mg DISCONTD: ketorolac (TORADOL) injection 15 mg clopidogreL 75 mg tablet aspirin 81 mg EC tablet isosorbide mononitrate 60 mg 24 hr tablet hydrOXYzine 50 mg tablet haloperidoL 2 mg tablet rosuvastatin 20 mg tablet methocarbamoL (ROBAXIN) tablet 500 mg DISCONTD: famotidine (PEPCID AC) tablet 20 mg clopidogreL (PLAVIX) 75 mg tablet 75 mg aspirin EC tablet 81 mg isosorbide mononitrate (IMDUR) 24 hr tablet 60 mg DISCONTD: hydrOXYzine (ATARAX) tablet 50 mg haloperidoL (HALDOL) tablet 2 mg DISCONTD: rosuvastatin (CRESTOR) tablet 20 mg DISCONTD: ALPRAZolam (XANAX) tablet 1 mg NaCl 0.9% (NS) IV infusion 1,000 mL morphine (2 mg/mL) injection 2 mg lisinopriL (PRINIVIL,ZESTRIL) tablet 40 mg DISCONTD: hydralAZINE (APRESOLINE) injection 10 mg perflutren protein-A microsphr (OPTISON) injection 3 mL HEPARIN SODIUM (PORCINE) 1,000 UNIT/ML BOLUS ACS ORDER SET heparin (1,000 unit/mL, 10 mL vial) for Rebolusing heparin 25,000 Units/250 mL (Premixed Bag) in 0.45 % NS nitroglycerin (NITROSTAT) sublingual tablet 0.4 mg DISCONTD: morpHINE (4 mg/mL) injection 4 mg acetaminophen (TYLENOL) tablet 650 mg DISCONTD: morpHINE injection 4 mg DISCONTD: morpHINE injection 2 mg DISCONTD: ALPRAZolam (XANAX) tablet 0.5 mg HYDROcodone-acetaminophen (NORCO 5) tablet 1 tablet morpHINE injection 2 mg famotidine (PEPCID AC) tablet 20 mg rosuvastatin (CRESTOR) tablet 40 mg First Provider Eval: ED Events None AdmissionCare Guideline: Chest Pain, Inpatient Based on the indications selected for the patient, the bed status of Inpatient was determined to be MET The following indications were selected as present at the time of evaluation of the patient: - Clinical Indications for Admission to Inpatient Care - Admission is indicated for 1 or more of the following: - Presenting signs or symptoms (eg, chest pain) persist despite observation care. AdmissionCare documentation entered by: Olivia Garcia [employer], 28th edition, Copyright ? 2023 [employer] All Rights Reserved. [id number]:01-05:00 ED COURSE Diagnosis/Impression as of 11/03/24 0459 Chest pain, unspecified type Procedures: EKG-12 Lead ROUTINE ONCE Date/Time: 10/31/2024 9:32 PM Performed by: Olivia Garcia MD Authorized by: Olivia Garcia MD ECG interpreted by ED Physician in the absence of a strip picker: yes Previous ECG: Previous ECG: Compared to current Similarity: No change Interpretation: Interpretation: abnormal Rate: ECG rate: 107 ECG rate assessment: tachycardic Rhythm: Rhythm: sinus tachycardia Ectopy: Ectopy: none QRS: QRS axis: Normal QRS intervals: Normal QRS conduction: normal ST segments: ST segments: Non-specific T waves: T waves: normal Q waves: Abnormal Q-waves: not present Other findings: Other findings: LAE MDM: Medical Decision Making Charity Roca is a 44 year old female with numerous medical conditions as listed above who presents to the ED with chest pain X 2 hours Problems Addressed: Chest pain, unspecified type: acute illness or injury Details: Due to pt's cardiac hx, will admit for further evaluation and to r/o ACS Amount and/or Complexity of Data Reviewed External Data Reviewed: radiology, ECG and notes. Labs: ordered. Decision-making details documented in ED Course. Radiology: ordered and independent interpretation performed. Decision-making details documented in ED Course. ECG/medicine tests: ordered and independent interpretation performed. Decision-making details documented in ED Course. Risk Prescription drug management. Parenteral controlled substances. Drug therapy requiring intensive monitoring for toxicity. Decision regarding hospitalization. Flowsheet Documentation: Scoring Tools: No data recorded Disposition/Condition: ED Disposition ED Disposition Admit - Observation Condition -- Comment Treatment Team: [facility] [[id number]] Discharge Medications: Current Discharge Medication List STOP taking these medications aspirin 81 mg EC tablet Comments: Reason for Stopping: clopidogreL 75 mg tablet Comments: Reason for Stopping: haloperidoL 2 mg tablet Comments: Reason for Stopping: hydrOXYzine 50 mg tablet Comments: Reason for Stopping: isosorbide mononitrate 60 mg 24 hr tablet Comments: Reason for Stopping: rosuvastatin 20 mg tablet Comments: Reason for Stopping: famotidine (PEPCID) 20 mg tablet Comments: Reason for Stopping: ALPRAZOLAM ORAL Comments: Reason for Stopping: methocarbamoL (ROBAXIN) 500 mg tablet Comments: Reason for Stopping: cefdinir 300 mg capsule Comments: Reason for Stopping: Follow-up: Electronically signed by: Olivia Garcia MD 11/03/24 0459 . [facility] [employer] 2024-10-31 21:24:00 AdmissionCare Guideline: Chest Pain, Inpatient Based on the indications selected for the patient, the bed status of Inpatient was determined to be MET The following indications were selected as present at the time of evaluation of the patient: - Clinical Indications for Admission to Inpatient Care - Admission is indicated for 1 or more of the following: - Presenting signs or symptoms (eg, chest pain) persist despite observation care. AdmissionCare documentation entered by: [facility], 28th edition, Copyright ? 2023 [employer] [facility] All Rights Reserved. [id number]:59:01-05:00 . [facility] [employer] 2024-10-23 23:53:58 Awake, alert oriented X4, respiratory [...] noted upon discharge. Pt ambulated to the lobby with steady gait. Connie Rivera RN [facility] 2024-10-23 20:14:29 Patient arrived ambulatory to ED c/o upper abdominal pain that radiates to the left side. Went to PCP today and they told her if it was still hurting come to the ER. Toradol taken today with no relief. States she feels like it is her pancreas. 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 METABOLIC PANEL (00414) - Abnormal NA 136 135 - 145 [...] contrast Cbc with Diff Comp. Metabolic Panel (31715) Lipase Urinalysis Orders Placed This Encounter Medications [...] A) Hiatal Hernia, UTI Disposition/Condition: Home, Pepcid, [place]/Zofran prn, Cefdinir x 7 days, ER warnings, [...] Electronically signed by: Levar Barker MD 10/23/24 2341 T [facility] 2024-10-23 10:16:39 Patient is here for a follow up from the hospital for chest pain and back pain. She needs a refill on the Hydroxyzine Pamoate 50 mg. She scored high for depression and anxiety but reports that she is able to use her coping mechanisms, has a place where she feels safe, and a safe person. [facility] 2024-10-13 02:45:03 Pt given printed and verbal [...] in no apparent distress. Jeana Pringle RN [facility] 2024-10-12 22:25:27 Pt arrived ambulatory without assist. Pt c/o chest pain that started around 8pm, and UTI symptoms that started yesterday. Shaneka Atkinson RN [facility] 2024-07-19 01:23:02 Pt given printed and verbal [...] with steady gait, in no apparent distress, [facility] 2024-07-19 00:57:31 ERP at bedside. [facility] 2024-07-19 00:09:25 07/18/24 2356 07/19/24 0000 07/19/24 0008 Orthostatic Vitals BP 132/56 (!) 139/92 (!) 157/112 BP Location Left arm Left arm Right leg Position Lying Sitting Standing Pulse 79 78 78 [facility] Jen Merrill RN [facility] 2024-07-18 23:44:12 Patient states "feeling like crap. Every time I stand up everything gets dizzy, black, and I feel like I am going to pass out." [facility] 2024-07-18 22:39:11 Pt brought in by [...] and pain in back. [facility] and [facility] said she was low on potassium (was given 4 tablets of potassium). Pt took home medications today RY CONTROL TENDER Shaneka Atkinson RN [facility] 2024-07-04 01:30:39 PT D/C home. GCS15, VS [...] to have someone drive her home. NYA Aylaa RN [facility] 2024-07-03 19:51:20 Pt arrives ambulatory to ED c/o N/V/D x3 days and says today began having right side abdominal pain. NYA Rios RN [facility] 2024-06-21 02:58:12 Pt given printed and verbal [...] with steady gait, in no apparent distress. RY CONTROL TENDER [facility] 2024-06-21 01:57:43 Pt arrives ambulatory to ED c/o "spider bite" upper right abdomen area. She says she squeezed it right before coming in and puss came out of it, leaving a black hole. So she came in to be evaled. NYA Rios RN [facility] 2024-06-15 00:27:31 Pt given printed and verbal [...] in no apparent distress, NYA Delgadillo RN [facility] 2024-06-14 22:55:00 Report given to JAMES Degladillo NYA Emery RN [facility] 2024-06-14 21:23:27 Patient arrived ambulatory to ED c/o abdominal pain that started Saturday. Patient recently had heart cath placed on . States "haven't been keeping anything down. I can't even keep my medications down." NYA Merrill RN [facility] 2024-06-07 02:39:24 Pt given printed and verbal [...] in no apparent distress, NYA Delgadillo RN [facility] 2024-06-07 00:46:48 Report to Leona RAMIREZ. NYA Montelongo RN [facility] 2024-06-06 22:01:17 Patient arrived ambulatory to ED c/o chest pain that started around 1900 tonight. Patient took 4 baby ASA OVENS SUPERVISOR. Sharp chest pain that radiates to left shoulder. NYA Merrill RN [facility] 2024-05-28 13:02:38 Chief Complaint Patient presents with Shoulder Pain Pt complains of left shoulder pain that has been in pain for last 3 years. Pain is getting worse. No injury. No occupation. Pt has been doing PT for shoulder. She is also taking methocarbamol for pain however it is not helping. [facility] 2024-05-19 13:33:08 Patient given discharge instructions with readback, discussed prescriptions and follow up care. . Steady gait with NAD noted. NYA Davila RN [facility] 2024-05-19 11:42:01 Patient had a fall on Saturday and came into ED to be seen. Had pain meds and scan performed with no significant findings. Patient called her PCP and they told her to go to ER because she could have a concussion or just feel worse. NYA Crnoin RN [facility] 2024-05-18 10:27:22 Chief Complaint Patient presents with Physical Patient is fasting. No other issues to discuss Jennifer Del Castillo MA II [facility] 2024-05-17 22:18:24 Pt given printed and verbal [...] in no apparent distress, NYA Delgadillo RN [facility] 2024-05-17 20:40:54 Okay to release information to father Piyush Roca per patient NYA Atkinson RN [facility] 2024-05-17 20:18:[address] scan and brought to [facility] with RN and trauma team. Continuous cardiac monitoring and serial vital signs monitored by Santi RAMIREZ. Santi Delgadillo RN [facility] 2024-05-17 19:58:[address] scan with RN and trauma team. Continuous cardiac monitoring and serial vital signs monitored by Santi RAMIREZ. Santi Delgadillo RN [facility] 2024-05-17 18:55:00 Received report from Juliano RAMIREZ [facility] 2024-05-17 18:35:54 Report received from EMS. Trauma protocol initiated. Trauma team members at bedside, primary and secondary survey in progress. Pt placed on continuous cardiac monitoring, pulse oximetry, and serial vital signs. Wellington Dorantes RN [facility] 2024-05-17 18:31:04 Patient arrived by [facility], tripped over a floor tile and hit the occipital area. Unsure of LOC. Patient received 10mg of reglan and morphine 4mg OVENS SUPERVISOR. [facility] Wellington Dorantes RN [facility] 2024-05-07 21:32:31 Patient discharged to home. Patient [...] in no apparent distress. Cameron Posada RN [facility] 2024-05-07 18:45:11 Pt arrived ambulatory with complaints of lower back pain, lower abdominal pain, and dysuria since yesterday. Took Tramadol at 2pm Aline Lou RN [facility] [id number] 06:28:23 THANK YOU FOR CHOOSING US FOR YOUR MEDICAL CARE AND IT WAS A PLEASURE TO TAKE CARE OF YOU: PUSHPA RODRIGUEZ, MSN, DATA ABSTRACTOR, [facility]- DIAGNOSIS: UTI, GASTROENTERITIS PRESCRIPTION: ZOFRAN AND MACROBID PER PRESCRIPTION DETAILS SENT TO [facility]: [place] GIVEN IN ER FOLLOW UP: [...] NO PHYSICIAN MONTSERRAT TERRAZAS MD Work Phone: [place] [phone] CARLOS SOLANO MD Work Phone: [address] [place] [address] ENTER NAME IN NOTES OTHER Future Procedures [...] is unavailable Patient Instructions <tbody> Otitis Externa, Qdle-nm-Bexg Allergic Rhinitis, Adult, Ea sy-to-Read Ovarian Cyst, Hqak-vp-Avgc Abdominal Pain, Adult, Easy- to-Read Renal Mass Nonspecific Chest Pain, Adul t, Yerc-fh-Orng Acetaminophen; Hydrocodone t ablets or capsules Sucralfate tablets Pantoprazole tablets Ciprofloxacin tablets Nonspecific Chest Pain, Adul t, Izbq-xc-Iftb Alprazolam tablets Trazodone Tablets Aspirin Tablets Urinary Tract Infection, [place] lt, Evuh-ue-Yfcy Dehydration, Adult, Easy-to- Read Urinary Tract Infection, [place] lt, Nlyx-dk-Gqjs [facility] [id number] 20:37:07 Pt given printed and verbal discharge [...] gait, in no apparent distress [facility]ato Doan [facility]130[facility] 18:50:37 Nurse Report Report given to renato. Chief complaint, assessment findings, infusion verify and orders reviewed. Plan of care discussed. Lola Reynoso RN Lola Reynoso [facility]jjogo1991-70-84 17:27:35 Pt arrived ambulatory complains of abdominal pain and points to her left upper abdominal. Pt states that last time she had this type of pain it was pancreatitis. Reports pain started at 1300 and reports pain is 9/10 and hurts whenever she eats. Harriett Mejia [facility]xeaeq1044-12-47 11:11:13 Chief Complaint Patient presents with Shoulder Pain Left shoulder pain with limited range of motion x 6 months, takes OTC tylenol for the pain as needed but pain is getting worse. 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 Not working currently [facility]2024-06-07 09:19:27 Chief Complaint Patient presents with [facility] F/U [facility] ER follow up with admission on 12/04/2023 for chest pains. She had a stent placed by Dr. Arthur. Jennifer Del Castillo MA II Jennifer Del Castillo MA, [facility]2024-05-28 10:49:31 Chief Complaint Patient presents with Anxiety Follow up on anxiety/depression. She states that it has gotten worse since last visit. She had an appointment with January this morning and it was canceled due to internet outage. Jennifer Del Castillo MA II Jennifer Del Castillo MA, [facility] Ebtbox7016-07-02 13:21:02 Chief Complaint Patient presents with [facility] told her she needed to go to a different doctor because they could not give her anything else Marbella Oh LVN [facility]2024-04-05 00:41:45 Pt given printed and [...] no apparent distress. Becky Rios [facility]g0430-46-46 21:25:46 Pt arrived ambulatory but states feeling like she is going to pass out, Pt placed in ED wheelchair. Pt c/o " I have pain in my back on the left side, it mark when I pee, Im nauseous, I feel like Im going to pass out and I have been crapping on myself." Shaneka Atkinson [facility]2967-26-07 22:58:41 Pt discharged with diagnosis of RUQ abd pain and chronic abd pain. Printed and verbal instructions reviewed with and given to pt. Prescriptions given x 2. Pt verbalized understanding of teaching, medications, and recommended follow-up. Denies questions or concerns at this time. Pt ambulatory at discharge. Appears in no apparent distress. No ataxia noted. RY CONTROL TENDER Adeline Floyd [facility]4048-24-31 19:46:03 Pt states sharp pain to the RLQ that started today around noon, pt denies any urinary symptoms, vomiting X 2 RY CONTROL TENDER Razia Yost [facility]4586-56-85 00:14:00 Awake, alert oriented X4, respiratory even [...] noted upon discharge [facility] Razia Yost [place] [id number] 23:06:10 Received report from Evy RAMIREZ, assuming care. Brandy Lou [place] [id number] 22:38:[address] scan done. Patient states LQ abdominal pain now 01/14. T Maggie Caceres [place] [id number] 22:00:00 POCT test negative. Patient states RLQ abdominal pain improved briefly with IV Morphine administration, then returned at 03/17. Dr Richards informed, and patient medicated as ordered with Fentanyl 75 mcg slow IVP. [place] [id number] 21:00:00 Medicated as per order with Zofran 4 mg slow IVP and Morphine 4 mg slow IVP for RLQ abdominal pain 03/17. [place] 446[address]-09-02 20:17:52 Pt arrived ambulatory with complaints of RLQ abd pain since yesterday. Pt reports N/V/D. Last took Tylenol at 3pm. Denies dysuria but reports frequency. Hx: Anxiety, Depression, PTSD, Pancreatitis T Aline Lou [place] [id number] 01:30:22 Discharged home ambulatory. Home instructions given. T John Ventura [place] [id number] 19:32:44 Pt CO of N/V, left lower back pain, painful urination and diarrhea since yesterday, states she was admitted last week for pancreatitis. Pt already promethazine tablets today with no relief. 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 RL: 460 AF: [id number] Lab Results: Lab Results CBC WITH DIFF [...] POCT PREG TEST DATE COMP. METABOLIC PANEL (49908) NA 139 135 - 145 mmol/L K [...] CONTRAST CBC WITH DIFF COMP. METABOLIC PANEL (80729) LIPASE URINALYSIS POCT TEST Orders Placed This [...] signed by: Olivia Garcia MD 03/02/23 0122 [id number]03 Pt given printed and verbal discharge [...] no apparent distress, Linda [facility] 22:53[facility]36 Pt arrived ambulatory with complaints of [...] might be from her anxiety. Aline Lou [place] [id number] 15:59:15 Problem: Pain Goal: Control of pain [...] Goal: Effective communication Outcome: Adequate for discharge [facility]ata Lamar [id number] 00:21:19 Problem: Pain Goal: Control of pain [...] Goal: Effective communication Outcome: Progressing as expected [facility]2023-08-12 16:55:55 Problem: Pain Goal: Control of pain [...] Goal: Effective communication Outcome: Progressing as expected [place] 44615-08-12 03:35:03 Problem: Pain Goal: Control of pain [...] Goal: Effective communication Outcome: Progressing as expected [place] 44615-08-11 19:41:18 Nurse Report Report given to JAMES Gatica. Chief complaint, assessment findings, infusion verify and orders reviewed. Plan of care discussed with both nurses. Stacie Man RN [facility] Stacie Man [place] [id number] 13:40:01 CC: patient presents to the ER [...] assistance. Appears in no distress. 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 CHEST 1 VW Final Result [...] process is identified in the chest. RL: 5155 END OF REPORT Lab Results: reviewed by [...] 0.01 - 0.07 10*3/uL COMP. METABOLIC PANEL (16459) - Abnormal NA 138 135 - 145 [...] INTERPRETATION CBC WITH DIFF COMP. METABOLIC PANEL (71810) LIPASE Orders Placed This Encounter Medications ibuprofen [...] 02/15/231344 Medical Screening Begins L[address] WISE -- 02/15/23 [...] ED Physician in the absence of a strip picker: yes Previous ECG: Previous ECG: Unavailable Interpretation: [...] this a planned re-admission?: No Treatment Team: [facility] [[id number]] Is this patient COVID positive or a patient under investigation (PUI)?: No Electronically signed by: Leeanne Wise NP 02/15/231910 Associated attestation - Bushra Rios DO - 02/16/2023 7:30 AM CDT I was personally available for consultation in the Emergency Department during this encounter and patient evaluation by Leeanne Wise. [facility]
[2024-11-11] MEDS ORDERED: KETOROLAC 30 MG/ML INJ ONE (20:50)
[2024-11-11] MEDS ORDERED: NA CHLORIDE 0.9% 1,000 ML ONE (20:50)
[2024-11-11] MEDS ORDERED: DICYCLOMINE HCL 20 MG/2 ML AMP IM ONE (20:50)
[2024-11-11] MEDS ORDERED: ONDANSETRON 4 MG/2 ML VIAL ONE (20:50)
[2024-11-11 20:56] LABS: Absolute Basophils 0.1 K/uL (0-0.5); Absolute Eosinophils 0.2 K/uL (0-0.5); Absolute Lymphocytes (CBC) 2.5 K/uL (0.7-4.9); Absolute Monocytes 0.4 K/uL (0.1-1.3); Absolute Neutrophil 3.7 K/uL (1.8-8.0); Basophils % 0.9 % (0-1.3); Eosinophils % 3.6 % (0-4.4); Hematocrit 34.2 % (36.0-45.0); Hemoglobin 11.6 g/dL (12.0-15.0); Lymphocytes % 35.9 % (15.3-44.8); MCH 26.3 pg (27.0-35.0); MCHC 33.9 g/dL (32.0-36.0); MCV 77.6 fL (80-100); MPV 7.2 fL (7.6-11.3); Monocytes % 5.7 % (3.3-12.3); Neutrophils % 53.9 % (41.7-73.7); Nucleated Red Blood Cells % 0.2 % (0-0); Platelets 341 thou/uL (152-406); RBC Red Blood Cell Count 4.41 M/uL (3.86-4.86); Red Cell Distribution Width 19.6 % (12.1-15.2)
[2024-11-11 20:59] LABS: Specific Gravity 1.015 (1.005-1.030); Urine Bacteria None Seen /HPF (<20); Urine Bilirubin NEGATIVE (Negative); Urine Blood 3+ (OVER) (Negative); Urine Clarity Extremely Turbid (Clear); Urine Color Light-Yellow (Yellow); Urine Crystals Unidentified Few /HPF (None Seen); Urine Culture Reflex Order NOT NEEDED; Urine Glucose NEGATIVE (Negative); Urine Ketones NEGATIVE (Negative); Urine Microscopic Reflex YN ORDER UMIC; Urine Mucus Slight /HPF (None Seen); Urine Nitrite NEGATIVE (Negative); Urine Protein NEGATIVE (Negative); Urine RBC >50 /HPF (None Seen); Urine Urobilinogen Normal (Normal); Urine WBC <5 /HPF (<5)
[2024-11-11 21:14] LABS: ALT/SGPT 25 U/L (13-56); AST/SGOT 13 U/L (15-37); Albumin 2.9 g/dL (3.4-5.0); Albumin/Globulin Ratio 0.8 (1.1-1.8); Alkaline Phosphatase 81 U/L (45-117); Anion Gap 10.5 mEq/L (5.0-15.0); BUN Blood Urea Nitrogen 7 mg/dL (7-18); Bicarbonate 23 mEq/L (21-32); Globulin 3.5 g/dL (2.3-3.5); Glomerular Filtration Rate 110 ml/min (=/>90); Glucose Level 112 mg/dL (74-106); Lipase 42 U/L (13-75); Potassium 3.5 mEq/L (3.5-5.1); Protein, Total 6.4 g/dL (6.4-8.2); Sodium Level 138 mEq/L (136-145)
[2024-11-11 21:18] LABS: Bilirubin Total < 0.2 mg/dL (0.2-1.0)
--- NOTE | 2024-11-11 21:43 | EDPHYS ---
Physician Documentation [facility] Name: Charity Hanks Age: 44 yrs Sex: Female : 1980 Arrival Date: 11/11/2024 Time: 20:23 Bed 14 Private MD: ED Physician Marty Singh HPI: 11/11 21:24 This 44 yrs old Female presents to ER via Ambulatory with complaints of Back Pain, kb Vomiting, Weakness. 21:27 Pt is a 44 year old female who presents for n/v/d and weakness that started yesterday. kb Denies abd pain or fever. . 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 - Infectious Disease History:: Denies. - Social history:: Smoking status: Patient reports the use of cigarette tobacco products, smokes one pack cigarettes per day. ROS: 21:27 Constitutional: As per HPI kb Exam: 21:27 Constitutional: This is a well developed, well nourished patient who is awake, alert, kb and in no acute distress. Head/Face: Normocephalic, atraumatic. ENT: Moist Mucous membranes Cardiovascular: Regular rate Respiratory: Respirations even and unlabored. No increased work of breathing. Talking in full sentences Abdomen/GI: Soft, non-tender. No distention Skin: Warm, dry with normal turgor. Normal color. MS/ Extremity: Pulses equal, no cyanosis. Neurovascular intact. Full, normal range of motion. Neuro: Awake and alert, GCS 15, oriented to person, place, time, and situation. Vital Signs: 20:36 BP 147 / 100; Pulse 81; Resp 16; Temp 97.9; Pulse Ox 99% on R/A; Weight 108.86 kg; dd2 Height 5 ft. 2 in. ; Pain 8/10; 21:44 BP 132 / 81; Pulse 78; Resp 18; Temp 97.9; Pulse Ox 99% ; Pain 0/10; bm8 20:36 Body Mass Index 43.90 (108.86 kg, 157.48 cm) dd2 20:36 Pain Scale: Adult dd2 21:44 Pain Scale: Adult bm8 [place] Coma Score: 21:44 Eye Response: spontaneous(4). Motor Response: obeys commands(6). Verbal Response: bm8 oriented(5). Total: 15. MDM: 20:29 Medical Screening Exam initiated kb 21:27 Differential diagnosis: viral gastroenteritis, dehydration, abnormal electrolytes. Data kb reviewed: vital signs, nurses notes. 21:41 Test considered but Not performed: CT: ct abd considered but pt has no abd tenderness. kb Counseling: I had a detailed discussion with the patient and/or guardian regarding the historical points, exam findings, and any diagnostic results supporting the discharge/admit diagnosis, lab results, the need for outpatient follow up, a family practitioner, to return to the emergency department if symptoms worsen or persist or if there are any questions or concerns that arise at home. ED course: Pt states she is tired and would like to go home now. . 11/11 20:35 Order name: CBC with Diff kb 11/11 20:35 Order name: CMP; Complete Time: 21:47 kb 11/11 20:35 Order name: Lipase; Complete Time: 21:47 kb 11/11 20:35 Order name: UA Rfx Hong Cult if indicated; Complete Time: 21:01 kb 11/11 21:37 Order name: Manual Differential EDMS 11/11 20:35 Order name: IV Saline Lock; Complete Time: 20:50 kb 11/11 20:35 Order name: Labs collected and sent; Complete Time: 20:50 kb Administered Medications: 20:55 CANCELLED (Other Intervention Used): [id number] mg PO once kb 20:57 Drug: NS 0.9% IV 1000 ml IV at 1 bolus Per protocol; to be given as a bolus over 60 bm8 minutes Route: IV; Rate: 1 bolus; Site: right forearm; 21:22 Follow up: Response: No adverse reaction; IV Status: Completed infusion bm8 20:57 Drug: Ketorolac IVP 15 mg IVP once Route: IVP; Site: right forearm; bm8 21:22 Follow up: Response: No adverse reaction bm8 20:57 Drug: Dicyclomine IM 20 mg IM once Route: IM; Site: left deltoid; bm8 21:21 Follow up: Response: No adverse reaction bm8 20:58 Drug: Ondansetron IVP 4 mg IVP once; over 2 minutes Route: IVP; Site: right forearm; bm8 21:22 Follow up: Response: No adverse reaction bm8 Disposition: 23:51 Co-signature as Attending Physician, Marty Singh MD I agree with the assessment sp4 and plan of care. I reviewed the patient's care provided by the Advanced Practice Provider and agree with the diagnosis and treatment plan. Disposition Summary: 11/11/24 21:42 Discharge Ordered Notes: Location: Home kb Condition: Stable kb Diagnosis - Nausea with vomiting, unspecified kb - Diarrhea, unspecified kb Followup: kb - With: Emergency Department - When: As needed - Reason: Worsening of condition Followup: kb - With: Private Physician - When: 2 - 3 days - Reason: Recheck today's complaints, Continuance of care, Re-evaluation by your physician Discharge Instructions: - Discharge Summary Sheet kb - Viral Gastroenteritis, Adult, [id number] kb Forms: - Medication Reconciliation Form kb - Antibiotic Education kb - Prescription Opioid Use kb - Patient Portal Instructions kb - Leadership Thank You Letter kb Prescriptions: - Zofran 4 mg Oral tablet - take 1 tablet ORAL route every 6 hours As needed; 12 tablet; Refills: 0, kb Product Selection Permitted - dicyclomine 20 mg Oral tablet - take 1 tablet ORAL route 4 times per day As needed; 12 tablet; Refills: 0, kb Product Selection Permitted Signatures: Dispatcher [employer] EDMS Radha Titus, KAY-C KAY-Marty Schaefer MD MD sp4 Dayne Moody, RN RN bm8 AB BAI RN RN dd2 Corrections: (The following items were deleted from the chart) 20:35 20:35 CBC+H.LAB.BRZ ordered. EDMS EDMS 20:35 20:35 COMPREHENSIVE METABOLIC PANEL+C.LAB.BRZ ordered. EDMS EDMS 20:35 20:35 LIPASE+C.LAB.BRZ ordered. EDMS EDMS 20:35 20:35 UA Rfx Hong Cult if indicated+U.LAB.BRZ ordered. EDMS EDMS 20:55 20:46 Dicyclomine PO 20 mg PO once ordered. kb kb
--- NOTE | 2024-11-11 21:43 | ER ---
Nurse's Notes [facility] Name: Charity Hanks Age: 44 yrs Sex: Female : 1980 Arrival Date: 11/11/2024 Time: 20:23 Bed 14 Private MD: Diagnosis: Nausea with vomiting, unspecified;Diarrhea, unspecified Presentation: 11/11 20:36 Chief complaint: Patient states: N/V, DIARRHEA, FEVER, WEAKNESS AND MIDDLE BACK PAIN X1 dd2 DAY. Coronavirus screen: At this time, the client does not indicate any symptoms associated with coronavirus-19. Ebola Screen: No symptoms or risks identified at this time. Initial Sepsis Screen: Does the patient meet any 2 criteria? No. Patient's initial sepsis screen is negative. Does the patient have a suspected source of infection? No. Patient's initial sepsis screen is negative. Risk Assessment: Do you want to hurt yourself or someone else? Patient reports no desire to harm self or others. Onset of symptoms was November 10, 2024. 20:36 Method Of Arrival: Ambulatory dd2 20:36 Acuity: CARLOS 3 dd2 Triage Assessment: 20:39 General: Appears in no apparent distress. uncomfortable, Behavior is calm, cooperative, dd2 appropriate for age. Pain: Complains of pain in mid back area. GI: Abdomen is non-distended, obese, Abd is soft and non tender X 4 quads. Reports diarrhea, nausea, vomiting. Musculoskeletal: Circulation, motion, and sensation intact. Range of motion: intact in all extremities. 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 - Infectious Disease History:: Denies. - Social history:: Smoking status: Patient reports the use of cigarette tobacco products, smokes one pack cigarettes per day. Screenin:59 [facility] ED Fall Risk Assessment (Adult) History of falling in the last 3 months, bm8 including since admission No falls in past 3 months (0 pts) Confusion or Disorientation No (0 pts) Intoxicated or Sedated No (0 pts) Impaired Gait No (0 pts) Mobility Assist Device Used No (0 pt) Altered Elimination No (0 pt) Score/Fall Risk Level 0 - 2 = Low Risk Oriented to surroundings, Maintained a safe environment, Educated pt \T\ family on fall prevention, incl call for assistance when getting out of bed, Assessed \T\ reinforced patient's understanding of fall precautions, Hourly rounding (assess needs \T\ fall precautionary measures) done, Used ambulatory aids as needed (educated on \T\ assisted with), Used gait belt as appropriate. Abuse screen: Denies threats or abuse. Nutritional screening: No deficits noted. Tuberculosis screening: No symptoms or risk factors identified. Assessment: 21:44 Reassessment: Patient appears in no apparent distress at this time. Patient and/or bm8 family updated on plan of care and expected duration. Pain level reassessed. Patient is alert, oriented x 3, equal unlabored respirations, skin warm/dry/pink. Patient denies pain at this time. Patient states feeling better. Patient states symptoms have improved. General: Appears in no apparent distress. comfortable, Behavior is calm, cooperative, appropriate for age. Pain: Denies pain. Neuro: No deficits noted. Level of Consciousness is awake, alert, obeys commands, Oriented to person, place, time, situation, Appropriate for age. Cardiovascular: Heart tones S1 S2 present Capillary refill < 3 seconds in bilateral fingers Patient's skin is warm and dry. Respiratory: Airway is patent Respiratory effort is even, unlabored, Respiratory pattern is regular, symmetrical, Breath sounds are clear bilaterally. GI: Reports diarrhea, Patient currently denies normal bowel habits, nausea, pain, vomiting. Vital Signs: 20:36 BP 147 / 100; Pulse 81; Resp 16; Temp 97.9; Pulse Ox 99% on R/A; Weight 108.86 kg; dd2 Height 5 ft. 2 in. ; Pain 8/10; 21:44 BP 132 / 81; Pulse 78; Resp 18; Temp 97.9; Pulse Ox 99% ; Pain 0/10; bm8 20:36 Body Mass Index 43.90 (108.86 kg, 157.48 cm) dd2 20:36 Pain Scale: Adult dd2 21:44 Pain Scale: Adult bm8 Radha Coma Score: 21:44 Eye Response: spontaneous(4). Motor Response: obeys commands(6). Verbal Response: bm8 oriented(5). Total: 15. ED Course: 20:28 Patient arrived in ED. gm2 20:29 Radha Titus FNP-C is [facility]. kb 20:29 Marty Singh MD is Attending Physician. kb 20:39 Triage completed. dd2 20:39 Arm band placed on right wrist. dd2 20:45 Dayne Moody, RN is Primary Nurse. bm8 20:59 Patient has correct armband on for positive identification. Call light in reach. Side bm8 rails up X 1. Client placed on continuous cardiac and pulse oximetry monitoring. NIBP monitoring applied. Pulse ox on. NIBP on. Door closed. Noise minimized. Warm blanket given. Pillow given. Verbal reassurance given. Head of bed elevated. 20:59 No provider procedures requiring assistance completed. Initial lab(s) drawn, by me, bm8 sent to lab. Urine collected: clean catch specimen, clear. Inserted saline lock: 20 gauge in right forearm, using aseptic technique. Blood collected. Flushed with 10 mL NS. Patient maintains SpO2 saturation greater than 95% on room air. 21:44 Provided Education on: post er care. bm8 21:44 IV discontinued, intact, bleeding controlled, No redness/swelling at site. Pressure bm8 dressing applied. Administered Medications: 20:55 CANCELLED (Other Intervention Used): [id number] mg PO once kb 20:57 Drug: NS 0.9% IV 1000 ml IV at 1 bolus Per protocol; to be given as a bolus over 60 bm8 minutes Route: IV; Rate: 1 bolus; Site: right forearm; 21:22 Follow up: Response: No adverse reaction; IV Status: Completed infusion bm8 20:57 Drug: Ketorolac IVP 15 mg IVP once Route: IVP; Site: right forearm; bm8 21:22 Follow up: Response: No adverse reaction bm8 20:57 Drug: Dicyclomine IM 20 mg IM once Route: IM; Site: left deltoid; bm8 21:21 Follow up: Response: No adverse reaction bm8 20:58 Drug: Ondansetron IVP 4 mg IVP once; over 2 minutes Route: IVP; Site: right forearm; bm8 21:22 Follow up: Response: No adverse reaction bm8 Medication: 20:59 VIS not applicable for this client. bm8 Outcome: 21:42 Discharge ordered by . rajinder 21:44 Discharged to home ambulatory, bm8 21:44 Condition: stable 21:44 Discharge instructions given to patient, family, Instructed on discharge instructions, follow up and referral plans. no drinking with medication, no driving heavy equipment, medication usage, safety practices, Demonstrated understanding of instructions, follow-up care, medications, 21:48 Patient left the ED. bm8 Signatures: Radha Titus, KAY-Hao VILLANUEVA-Lola Diaz 2 Dayne Moody, RN RN bm8 AB BAI RN RN dd2
[2024-11-11 22:10] LABS: Band Neutrophils 6 % (0-1); Differential Total Cells Count 100; Eosinophils 4 % (0-3); Lymphocytes 33 % (15-42); Monocytes 3 % (0-10); Segmented Neutrophils 54 % (40-80)
[2024-11-11 22:11] LABS: Blood Morphology Comment NOT SEEN (NOT SEEN); Platelet Estimate ADEQ
[2024-11-11 22:39] VITALS: TEMP 97.9; O2SAT 99
[2024-11-11 22:41] VITALS: BP 132/81
== END 2024-11-11 21:48 | disposition home or self-care (01) ==
LOC: ER 20:23
DX: R11.2 Nausea with vomiting, unspecified (principal); R19.7 Diarrhea, unspecified; R53.1 Weakness; I10 Essential (primary) hypertension; F17.210 Nicotine dependence, cigarettes, uncomplicated; Z95.818 Presence of other cardiac implants and grafts
CPT/HCPCS: 85025; 81001; 36415; 83690; 80053; 96375; 96372; 96374; 99284; J0500; J2405; J7030

== ENCOUNTER 2024-11-28 15:59 | Observation (INO) | payer OTHER ==
--- OUTSIDE RECORDS SUMMARY | 2024-11-28 16:23 | XMS REPORT | Continuity of Care Document ---
Author Name Unknown Address [address] [facility] [place] [address] Organization [facility] Address [address] [facility] [place] [address] Support Name Relationship Address Phone RACHEL CASH Father Unknown Unavailable PHYSICIAN, NO Primary Care Physician Unknown Unav ailable MD MORA POLLOCK A Emergency Provider [address] [place] [address] JAN COX natural parent [address] [address] MD SHERIDAN MCMANUS Emergency Provider [facility], [place] [address] CHARITY ROCA Guarantor [address] [place] [address] MD RIDDHI [place] [address] MD AN IRIZARRY Emergency Provider [facility], [place] [address] MD AIDEN SOLANO A Primary Care Physician [address] [facility] [address] [place] [address] OTHER, ENTER NAME IN NOTES Primary Care Physician Unknown Unavailable MD Arelis Kern Emergency Provider [address] [place] [address] MD SHAN BUSCH Attending Provider [address] [place] [address] LARRY, PIYUSH natural parent [address] [place] [address] MD TAVARES MG JR, JR. Emergency Provider [address] [place] [address] Leyda Villa Mother Unknown Unavailable Rachel Cox Father [address] [place] [address] one else per patient, No Emergency Contact Unknown Unavailable Rachel Cox Father [address] [place] [address] 1 Personal Relationship Unknown Unavai lable Unavailable Personal Relationship Unknown Unavai lable Rachel Cox Father [address] [place] [address] PATIENT, NO ONE ELSE PER Personal Relationship Unknown Unavailable Care Team Providers Care Collar Turner Name Role Phone OTHER, ENTER NAME IN NOTES Primary Care Physicia n Unavailable CHRISTINA PAGE Attending Clinician Unavailable CYNTHIA ROMEO Attending Clinician Unavailable NEO ALBARRAN Attending Clinician RIDDHI Chavez Attending Clinician Unavailable CATHY STRICKLAND Attending Clinician Unavailable ALEXX KWOK Attending Clinician UnavailTYLER Garcia Attending Clinician Unavailable NEIL SHULTZ Attending Clinician Unavailable BUSHRA RIOS Attending Clinician Unavailab BUSHRA Bustamante Attending Clinician Unavailab Bushra Bustamante DO Attending Clinician [phone] BOB GARCIA Attending Clinician Unavailable BOB GARCIA Attending Clinician Unavailable Bob Garcia MD Attending Clinician [phone] Piper Mercedes LVN Attending Clinician [phone] KAUR SANDRA Attending Clinician Unavailab KAUR Kessler Attending Clinician Unavailab Zay Shipman MD Attending Clinician [phone] Kaur Sandra MD Attending Clinician [phone] Elliott Kwok MD Attending Clinician [phone] Dane Jurado MD Attending Clinician +[phone] FLORINDA REYES Attending Clinician Unavailable JUANJOSE BARKER Attending Clinician Unavailable JUANJOSE BARKER Attending Clinician Unavailable Juanjose Barker MD Attending Clinician +[phone] GISELLE OSORIO Attending Clinician Unavailable MD BEHZAD Attending Clinician Unavailab CONRADO Pendleton Attending Clinician Unavailable JÚNIOR FARRELL Attending Clinician Unavailable Saleem EDWARD Attending Clinician Unavailable Saleem EDWARD Attending Clinician Unavailable Wagner PACSaleem Attending Clinician [phone] RADIOLOGY, DEPT Attending Clinician Unavailable SANDY GARCIA Attending Clinician Unavailable SANDY GARCIA Attending Clinician Unavailable Sandy Walker Attending Clinician + [phone] RAFAL WRIGHT Attending Clinician Unavailable Rafal Wright PA-C Attending Clinician [phone] Attending Clinician Unavailable Tammy Roy MD Attending Clinician + ARELIS KERN Attending Clinician Unavailab FARTUN Bernal Attending Clinician Unavailable TAVARES MG JR Attending Clinician UnaJacque Lazo NP Attending Clinician [phone] COSMO Attending Clinician Unavailable SHERIDAN MCMANUS Attending Clinician UnavailROBERTO Melgar Attending Clinician Unavailable Roberto Richards MD Attending Clinician +[phone] SHNA BUSCH Attending Clinician Unavailable RIDDHI MYLES Attending Clinician UnavailAN Garcia Attending Clinician Unavailable KLAUDIA NARVAEZ Attending Clinician Unavailable Klaudia Narvaez DO Attending Clinician +[phone] APPLE PADGETT S Attending Clinician Unavailable Dayron PAC, Apple S Attending Clinician [phone] ZAY MONTERO Attending Clinician Unavailable Leeanne Wise NP Attending Clinician + [phone] Zay Montero MD Attending Clinician +[phone] FELTON Attending Clinician Unavailable MELIDA LONGORIA Attending Clinician Unavailable Melida Longoria MD Attending Clinician +[phone] MCQUEEN, WIL R Attending Clinician Unavailable Charisse KEARNSCHICHOSauln R Attending Clinician +[phone] APPLE WANG Attending Clinician Unavaila ble Juan Jbailee MANAGER STRATE[employer]IC MARKETING, Rosapaulette F Attending Clinician [phone] Doctor Unassigned, [place] Attending Clinician U feroz CEM CHOI Attending Clinician Unavailable Cem Choi MD Attending Clinician [phone] Shelley Rosas RN Attending Clinician +[phone] Hassan MANAGER STRATE[employer] MARKETING, Bal Attending Clinician + [phone] BAL HASSAN Attending Clinician Unavailable Ebrahim MANAGER STRATE[employer]IC MARKETING, Tremaine Attending Clinician [phone] EBTREMAINE STRATTON Attending Clinician Unavailable LEEANNE WISE Attending Clinician Unavailable MORA POLLOCK Attending Clinician Unavailable Claudia MANAGER STRATE[employer]IC MARKETING, Katfiordaliza Odonnell Attending Clinician [phone] BEST TAYLOR Attending Clinician Unavailable Marbella Rizo RN Attending Clinician Unavailab bailee Robertson MANAGER STRATEGIC MARKETING, Abdias Attending Clinician [phone] ABDIAS ROBERTSON Attending Clinician Unavailable Kamryn Sheppard RN Attending Clinician Unavail able SINCERE FRANK Attending Clinician Unavailable GUMARO ALVAREZ Attending Clinician [...] Unavail able HUGO COFFMAN Attending Clinician Unavailable ALEXX KWOK Admitting Clinician UnavailBOB Diaz Admitting Clinician Unavailable ELLIOTT KWOK Admitting Clinician Unavailable Elliott Kwok MD Admitting Clinician [phone] JUANJOSE BARKER Admitting Clinician Unavailable Saleem EDWARD Admitting Clinician Unavailable SANDY GARCIA Admitting Clinician Unavailable RAFAL WRIGHT Admitting Clinician Unavailable BOB GARCIA Admitting Clinician Unavailable ROBERTO RICHARDS Admitting Clinician Unavailable SHAN BUSCH Admitting Clinician Unavailable RIDDHI MYLES Admitting Clinician UnaKLAUDIA Suárez Admitting Clinician Unavailable ZAY MONTERO Admitting Clinician Unavailable Zay Montero MD Admitting Clinician [phone] FELTON Admitting Clinician Unavailable MELIDA LONGORIA Admitting Clinician Unavailable WIL MCQUEEN Admitting Clinician Unavailable APPLE WANG Admitting Clinician Unavaila CEM Gomez Admitting Clinician Unavailable TREMAINE BECERRA Admitting Clinician Unavailable LEEANNE WISE Admitting Clinician Unavailable Saleem EDWARD Admitting Clinician Unavailable BEST TAYLOR Admitting Clinician Unavailable ABDIAS ROBERTSON Admitting Clinician Unavailable Payers Payer Name Policy Type Policy Number Effective Date Expirati on Date Source [place] Chelly [facility] 94 9 [id number] 2024 00:00:00 RAMSES W/ KELLEE BRITTON [id number] 2023 00:00:00 [facility] BCBS BLUE ADVANTAGE HMO [id number] 2020 00:00:00 Problems Condition Name Condition Details Condition Category Status Onset Date Resolution Date Last Treatment Date Treating Clinician Comments Source 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 Disease Active 11-01 00:00: 00 [facility] Dyslipidem ia Dyslipidem ia Disease Active 11-01 00:00: 00 [facility] Generalize d abdominal pain Generalize d abdominal pain Disease Active 2023-07 0 00:00: 00 [facility] Coronary artery disease Coronary artery disease [...] level Disease Active 2020-07 0- 00:00: 00 [facility] Cigarette smoker Cigarette smoker Disease Active 2020-07 0- 00:00: 00 [facility] Family history of early CAD Family history of early CAD Disease Active 2020-07 0- 00:00: 00 [facility] Essential hypertensi on Essential hypertensi on Disease Active 2020-07 0-02 00:00: 00 [facility] Elevated brain natriureti c peptide (BNP) level Elevated brain natriureti c peptide (BNP) level Disease Active 2020-07 0-02 00:00: 00 [facility] Snores Snores Disease Active 2020-07 0-02 00:00: 00 [facility] Morbid obesity with body mass index of 40.0-49.9 Morbid obesity with body mass index of 40.0-49.9 Disease Active 2020-07 0- 00:00: 00 [facility] Acute coronary syndrome without high troponin [facility] Adrenal mass Problem [facility] Adrenal nodule Problem [facility] Encounter for counseling regarding advance directives Problem [facility] Allergic rhinitis Problem [facility] Angina pectoris Problem [facility] Anxiety and depression Problem [facility] Chest pain Problem [facility] Gastroente ritis Problem [facility] Malaise Problem [facility] Otitis externa of left ear Problem [facility] Cyst of ovary Problem [facility] Post traumatic stress disorder (PTSD) [facility] Tobacco abuse Problem [facility] Urinary tract infection Problem [facility] No known active problems No known active problems Disease [facility] Allergies, Adverse Reactions, Alerts Allergy Name Allergy Type Status Severity Reaction(s) Onset Date Inactive Date Treating Clinician Comments Source NO KNOWN ALLERGIE S Drug Class Active [facility] Social History Social Habit Start Date Stop Date Quantity Comments Source Gender identity [facility] ASSERTION Possible [facility] History of Occupation [facility] Sexual orientation Saleem Buckley - External Tobacco use and exposure 2024-11-26 00:00:00 2024-11-26 00:00:00 Former smokeless tobacco user [facility] History of tobacco use 2024-11-12 00:00:00 Passive smoker [facility] Alcoholic beverage intake 2024-10-23 00:00:00 2024-10-23 00:00:00 [...] [facility] Exposure to SARS-CoV-2 (event) 2021-12-30 00:00:00 2022-01-09 16:34:00 Unable to assess [facility] Education 2021-04-07 00:00:00 2021-04-07 00:00:00 13 [facility] Sex assigned at 1980 00:00:00 1980 00:00:00 Kellee Davies Smoking Status Start Date Stop Date Source Ex-smoker 2024-11-26 00:00:00 2024-11-26 00:00:00 [facility] Smokes tobacco daily 2023-02-15 00:00:00 [facility] Unknown if ever smoked [facility] Medications Ordered Medication Name Filled Medication Name Start Date Stop Date Current Medication? Ordering Clinician Indication Dosage Frequency Signature (SIG) Comments Components Source rosuvastati n (CRESTOR) tablet 40 mg 11-28 02:00: 00 11-27 18:39 :12 No 40mg [facility] enoxaparin (LOVENOX) injection 40 mg 11-27 22:00: 00 11-27 18:39 :12 No 40mg 40 mg, Subcutaneo us, DAILY AT 1700, First dose on Sat11/27/24 at 1700, Until Discontinu ed, Routine [facility] KCL (KLOR-CON M20) tablet 40 mEq KCL (KLOR-CON M20) tablet 40 mEq 11-27 17:45: 00 11-27 17:08 :00 Yes 40meq 40 mEq, Oral, ONCE, 1 dose, On Sat11/27/24 at 1245, Routine [facility] magnesium oxide (MAG-OX 400) 400 mg (241.3 mg magnesium) tablet 400 mg magnesium oxide (MAG-OX 400) 400 mg (241.3 mg magnesium) tablet 400 mg 11-27 17:00: 00 11-27 18:39 :12 Yes 400mg 400 mg, Oral, DAILY, First dose on Sat11/27/24 at 1200, Until Discontinu ed, Routine [facility] lisinopriL (PRINIVIL,Z ESTRIL) tablet 40 mg lisinopriL (PRINIVIL,Z ESTRIL) tablet 40 mg 11-27 14:00: 00 11-27 18:39 :12 Yes 40mg 40 mg, Oral, DAILY, First dose on Sat11/27/24 at 0900, Until Discontinu ed [facility] isosorbide mononitrate (IMDUR) 24 hr tablet 60 mg isosorbide mononitrate (IMDUR) 24 hr tablet 60 mg 11-27 14:00: 00 11-27 18:39 :12 Yes 60mg 60 mg, Oral, DAILY, First dose on Sat11/27/24 at 0900, Until Discontinu ed, Routine [facility] clopidogreL (PLAVIX) 75 mg tablet 75 mg clopidogreL (PLAVIX) 75 mg tablet 75 mg 11-27 14:00: 00 11-27 18:39 :12 Yes 75mg 75 mg, Oral, DAILY, First dose on Sat11/27/24 at 0900, Until Discontinu ed, Routine, 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 Restricted medication : ALEXX KWOK [facility] aspirin chewable tablet 81 mg aspirin chewable tablet 81 mg 11-27 14:00: 00 11-27 18:39 :12 Yes 81mg 81 mg, Oral, DAILY, First dose on Sat11/27/24 at 0900, Until Discontinu ed, Routine [facility] ALPRAZolam 2 mg 24 hr tablet 11-27 13:39: 12 Yes 2mg Take 1 tablet by mouth in the morning and 1 tablet in the evening. [facility] methocarbam oL (ROBAXIN) tablet 500 mg methocarbam oL (ROBAXIN) tablet 500 mg 11-27 13:00: 00 11-27 18:39 :12 Yes 500mg 500 mg, Oral, QID, First dose on Sat11/27/24 at 0800, Until Discontinu ed, Routine [facility] metoprolol tartrate (LOPRESSOR) tablet 12.5 mg metoprolol tartrate (LOPRESSOR) tablet 12.5 mg 11-27 13:00: 00 11-27 18:39 :12 Yes 12.5mg 12.5 mg, Oral, BID, First dose on Sat11/27/24 at 0800, Until Discontinu ed, [facility] famotidine (PEPCID AC) tablet 20 mg famotidine (PEPCID AC) tablet 20 mg 11-27 13:00: 00 11-27 18:39 :12 Yes 20mg 20 mg, Oral, BID, First dose on Sat11/27/24 at 0800, Until Discontinu ed, Routine Univers [facility] hydrOXYzine (ATARAX) tablet 50 mg 11-27 04:35: 56 11-27 18:39 :12 No 50mg [facility] ALPRAZolam (XANAX) tablet 1 mg 11-27 04:35: 16 11-27 18:39 :12 No 1mg [facility] NaCl 0.9% (NS) IV infusion 1,000 mL 11-27 03:00: 00 11-27 18:39 :12 No 1000mL at 50 mL/hr, IV Infusion, CONTINUOUS , Starting on Sat11/26/24 at 2200, Until Sat11/27/24 at 1339, Routine [facility] ondansetron (ZOFRAN (PF)) injection 4 mg 11-27 02:49: 22 11-27 18:39 :12 No 4mg 4 mg, Slow IV Push, Q6HPRN, Starting on Sat11/26/24 at 2149, Until Sat11/27/24 at 1339, Administer over 2-5 Minutes, 2 mL [facility] morpHINE (4 mg/mL) injection 4 mg morpHINE (4 mg/mL) injection 4 mg 11-27 02:49: 19 11-27 17:19 :29 Yes 4mg 4 mg, Slow IV Push, Q6HPRN, Starting on Sat11/26/24 at 2149, Until Sat11/27/24 at 1219, Routine, Pain (scale 7-10) [facility] HYDROcodone -acetaminop hen (NORCO 5) tablet 1 tablet HYDROcodone -acetaminop hen (NORCO 5) tablet 1 tablet 11-27 02:49: 09 11-27 17:19 :29 Yes 1{tbl} 1 tablet, Oral, Q6HPRN, Starting on Sat11/26/24 at 2149, Until Sat11/27/24 at 1219, Routine, Pain (scale 4-6) [facility] acetaminoph en (TYLENOL) tablet 650 mg 11-27 02:49: 07 11-27 18:39 :12 No 650mg 650 mg, Oral, Q6HPRN, Starting on Sat11/26/24 at 2149, Until Sat11/27/24 at 1339, Routine, Pain (scale 1-3) [facility] HYDROcodone -acetaminop hen (NORCO) 10-325 mg tablet 1 tablet 11-27 02:30: 00 11-27 02:47 :00 No 1{tbl} 1 tablet, Oral, ONCE NOW, 1 dose, On Sat11/26/24 at 2130, Routine [facility] nitroglycer in (NITROL) 2 % ointment 1 Inch nitroglycer in (NITROL) 2 % ointment 1 Inch 11-27 02:15: 00 11-27 04:13 :00 Yes 1[in_us ] 1 Inch, Transderma l (Apply To Skin), ONCE NOW, 1 dose, On Sat11/26/24 at 2115, Routine [facility] haloperidoL (HALDOL) tablet 2 mg 11-27 01:30: 00 11-27 18:39 :12 No 2mg 2 mg, Oral, QHS, First dose on Sat11/26/24 at 2030, Until Discontinu ed, Routine [facility] ondansetron (ZOFRAN (PF)) injection 4 mg 11-27 01:00: 00 11-27 00:06 :00 No 4mg 4 mg, Slow IV Push, ONCE, 1 dose, On Esperanza 11/26/24 at 2000, 2 mL [facility] morpHINE (4 mg/mL) injection 4 mg 11-27 01:00: 00 11-27 00:07 :00 No 4mg 4 mg, Slow IV Push, ONCE, 1 dose, On Esperanza 11/26/24 at 2000, STAT [facility] NaCl 0.9% (NS) bolus infusion 500 mL 11-27 00:15: 00 11-27 01:22 :00 No 500mL at 999 mL/hr, 500 mL, IV Infusion, ONCE, 1 dose, On Esperanza 11/26/24 at 1915, STAT [facility] ibuprofen (IBU) tablet 600 mg 11-15 02:30: 00 11-15 02:21 :00 No 600mg 600 mg, Oral, ONCE, 1 dose, On 11/14/24 at 2130, ROSELYN [facility] Ciprofloxac in HCl (Cipro) 500 MG oral Tablet 11-15 00:00: 00 11-23 04:59 :00 Yes [id number] 500mg Q.5D Take 1 tablet (500 mg total) by mouth 2 times daily for 7 days. Kellee Buckley - Externa l KCL (KLOR-CON M20) tablet 40 mEq 11-11 06:15: 00 11-11 05:28 :00 No 40meq 40 mEq, Oral, ONCE, 1 dose, On Sat11/11/24 at 0115, Routine [facility] iopamidol (ISOVUE 370-500 mL) injection 80 mL 11-11 05:00: 00 11-11 05:00 :00 No [id number] 80mL 80 mL, Intravenou s, ONCE, 1 dose, On Sat11/11/24 at 0000, Routine [facility] morpHINE (4 mg/mL) injection 4 mg 11-11 04:30: 00 11-11 04:29 :00 No 4mg 4 mg, Slow IV Push, ONCE, 1 dose, On Sat11/10/24 at 2330, STAT [facility] ondansetron (ZOFRAN (PF)) injection 4 mg 11-11 02:00: 00 11-11 02:32 :00 No 4mg 4 mg, Slow IV Push, ONCE, 1 dose, On Sat11/10/24 at 2100, Administer over 2-5 Minutes, 2 mL [facility] morpHINE (4 mg/mL) injection 4 mg 11-11 02:00: 00 11-11 02:29 :00 No 4mg 4 mg, Slow IV Push, ONCE, 1 dose, On Sat11/10/24 at 2100, STAT [facility] lisinopriL 40 mg tablet 11-05 00:00: 00 Yes [id number] 40mg Take 1 tablet by mouth in the morning. [facility] Lidocaine (LIDOCARE) 4 % patch 1 Patch Lidocaine (LIDOCARE) 4 % patch 1 Patch 11-04 17:45: 00 11-04 20:24 :12 Yes 1{patch } 1 Patch, Topical, Administer over 12 Hours, ONCE, 1 dose, On Sat11/04/24 at 1245, Routine [facility] magnesium sulfate in water 4 gram/50 mL (8 %) IV Piggyback 4 g magnesium sulfate in water 4 gram/50 mL (8 %) IV Piggyback 4 g 11-04 16:00: 00 11-04 19:04 :00 Yes 4g 4 g, IV Piggyback, at 25 mL/hr Administer over 120 Minutes, ONCE, 1 dose, On Sat11/04/24 at 1100, Routine [facility] clopidogreL 75 mg tablet 11-04 15:24: 11 Yes 75mg Take 1 tablet by mouth in the morning. [facility] aspirin 81 mg EC tablet 11-04 15:24: 11 Yes 81mg Take 1 tablet by mouth in the morning. [facility] isosorbide mononitrate 60 mg 24 hr tablet 11-04 15:24: 11 Yes 60mg Take 1 tablet by mouth in the morning. [facility] hydrOXYzine 50 mg tablet 11-04 15:24: 11 Yes 50mg Take 1 tablet by mouth every 12 hours as needed for Anxiety. [facility] haloperidoL 2 mg tablet 11-04 15:24: 11 Yes 2mg Take 1 tablet by mouth at bedtime. [facility] rosuvastati n 20 mg tablet 11-04 15:24: 10 11-04 00:00 :00 No 20mg Take 1 tablet by mouth at bedtime. [facility] rosuvastati n 40 mg tablet 11-04 00:00: 00 Yes [id number] 40mg Take 1 tablet by mouth at bedtime. [facility] metoprolol tartrate 25 mg tablet 11-04 00:00: 00 Yes [id number] 12.5mg Take 0.5 tablets by mouth in the morning and 0.5 tablets in the evening. [facility] aminophylli ne 50 mg in NaCl 0.9% (NS) 2 mL piggyback 11-03 19:44: 46 11-03 20:03 :14 No ONCE INTRA PROCEDURE, Starting on Sat11/03/24 at 1444, Until Sat11/03/24 at 1503, CV Intraproce dure [facility] adenosine diagnostic (ADENOSCAN) injection 11-03 19:10: 54 11-03 20:03 :14 No CONTINUOUS PRN, Starting on Sat11/03/24 at 1410, Until Sat11/03/24 at 1503, Routine, CV Intraproce dure [facility] heparin 1,000 unit/mL injection 11-03 18:45: 11 11-03 20:03 :14 No ONCE INTRA PROCEDURE, Starting on Sat11/03/24 at 1345, Until Sat11/03/24 at 1503, Routine, CV Intraproce dure [facility] nitroglycer in (TRIDIL) 2 mg in 10 mL D5W for Cardiac Cath 11-03 18:29: 27 11-03 20:03 :14 No ONCE INTRA PROCEDURE, Starting on Sat11/03/24 at 1329, Until Sat11/03/24 at 1503, Routine, CV Intraproce dure [facility] lidocaine 1% (PF) (XYLOCAINE) injection 11-03 18:13: 12 11-03 20:03 :14 No ONCE INTRA PROCEDURE, Starting on Sat11/03/24 at 1313, Until Sat11/03/24 at 1503, Routine, CV Intraproce dure [facility] midazolam (VERSED) 1 mg/mL injection 11-03 18:12: 08 11-03 20:03 :14 No ONCE INTRA PROCEDURE, Starting on Sat11/03/24 at 1312, Until Sat11/03/24 at 1503, Routine, CV Intraproce dure [facility] FENTanyl (PF) (SUBLIMAZE) injection 11-03 18:11: 52 11-03 20:03 :14 No ONCE INTRA PROCEDURE, Starting on Sat11/03/24 at 1311, Until Sat11/03/24 at 1503, Routine, CV Intraproce dure [facility] metoprolol tartrate (LOPRESSOR) tablet 12.5 mg metoprolol tartrate (LOPRESSOR) tablet 12.5 mg 11-03 13:00: 00 11-04 22:34 :20 Yes 12.5mg 12.5 mg, Oral, BID, First dose on Sat11/03/24 at 0800, Until Discontinu ed, Routine [facility] famotidine (PEPCID AC) tablet 20 mg famotidine (PEPCID AC) tablet 20 mg 11-02 14:00: 00 11-04 20:24 :12 Yes 20mg 20 mg, Oral, DAILY, First dose (after last modificati on) on Sat11/02/24 at 0900, Until Discontinu ed, Routine [facility] rosuvastati n (CRESTOR) tablet 40 mg rosuvastati n (CRESTOR) tablet 40 mg 11-02 02:00: 00 11-04 22:34 :20 Yes 40mg 40 mg, Oral, QHS, First dose (after last modificati on) on Sat11/01/24 at 2100, Until Discontinu ed, Routine [facility] haloperidoL (HALDOL) tablet 2 mg haloperidoL (HALDOL) tablet 2 mg 11-02 02:00: 00 11-04 20:24 :11 Yes 2mg 2 mg, Oral, QHS, First dose on Sat11/01/24 at 2100, Until Discontinu ed, [facility] 2 mg morpHINE injection 2 mg 11-02 00:15: 06 11-04 16:59 :14 Yes 2mg 2 mg, Slow IV Push, Q4HPRN, Starting on Sat11/01/24 at 1915, Until Sat11/04/24 at 1159, Routine, Chest pain, Pain (scale 7-10) [facility] HYDROcodone -acetaminop hen (NORCO 5) tablet 1 tablet HYDROcodone -acetaminop hen (NORCO 5) tablet 1 tablet 11-02 00:14: 58 11-04 16:59 :14 Yes 1{tbl} 1 tablet, Oral, Q6HPRN, Starting on Sat11/01/24 at 1914, Until Sat11/04/24 at 1159, Routine, Pain (scale 4-6) [facility] morpHINE injection 4 mg morpHINE injection 4 mg 11-01 23:25: 45 11-01 23:34 :04 Yes 4mg 4 mg, Slow IV Push, Q4HPRN, Starting on Sat11/01/24 at 1825, Until Sat11/01/24 at 1834, Routine, Chest pain [facility] acetaminoph en (TYLENOL) tablet 650 mg 11-01 23:14: 29 11-04 20:24 :12 No 650mg [facility] morpHINE (4 mg/mL) injection 4 mg morpHINE (4 mg/mL) injection 4 mg 11-01 17:39: 53 11-01 23:25 :45 Yes 4mg 4 mg, Slow IV Push, Q4HPRN, Starting on Sat11/01/24 at 1239, Until Sat11/01/24 at 1825, Routine, Chest pain [facility] nitroglycer in (NITROSTAT) sublingual tablet 0.4 mg nitroglycer in (NITROSTAT) sublingual tablet 0.4 mg 11-01 17:35: 41 11-04 20:24 :12 Yes .4mg 0.4 mg, Sublingual , Q5MIN PRN, Starting on Sat11/01/24 at 1235, Until Sat11/04/24 at 1524, Routine, Chest pain [facility] heparin 25,000 Units/250 mL (Premixed Bag) in 0.45 % NS heparin 25,000 Units/250 mL (Premixed Bag) in 0.45 % NS 11-01 17:30: 00 11-03 21:07 :34 Yes 0U/h 0-2,750 Units/hr (0-27.5 mL/hr), IV Infusion, CONTINUOUS , Starting on Sat11/01/24 at 1230, Initiate infusion at 1,000 Units/hr [...] ant therapy. Range, Dosing and Testing: FOR [place], [facility], AND [facility] ONLY - aPTT < 35: Bolus 5000 [...] once therapeuti c levels are reached. FOR [facility] ONLY - aPTT < 40: Bolus 5000 [...] ADJUST INITIAL BOLUS OR INITIAL INFUSION RATE. [facility] HEPARIN SODIUM (PORCINE) 1,000 UNIT/ML BOLUS ACS ORDER SET [id number] 4-27 17:30: 00 11-01 19:27 :00 Yes 4000U 4,000 Units, IV Push, ONCE, 1 dose, On Sat11/01/24 at 1230, ROSELYN [facility] heparin (1,000 unit/mL, 10 mL vial) for Rebolusing [id number] 4-27 17:27: 37 11-04 20:24 :12 Yes 3000U FOR REBOLUSING , Starting on Sat11/01/24 at 1227, Until Sat11/04/24 at 1524, Routine, Dosing based on aPTT testing parameters (refer to continuous heparin drip order). [facility] lisinopriL (PRINIVIL,Z ESTRIL) tablet 40 mg lisinopriL (PRINIVIL,Z ESTRIL) tablet 40 mg 11-01 14:00: 00 11-04 22:34 :20 Yes 40mg 40 mg, Oral, DAILY, First dose on 11/01/24 at 0900, Until Discontinu ed, Routine [facility] isosorbide mononitrate (IMDUR) 24 hr tablet 60 mg isosorbide mononitrate (IMDUR) 24 hr tablet 60 mg 11-01 14:00: 00 11-04 20:24 :11 Yes 60mg 60 mg, Oral, DAILY, First dose on 11/01/24 at 0900, Until Discontinu ed, Routine [facility] aspirin EC tablet 81 mg aspirin EC tablet 81 mg 11-01 14:00: 00 11-04 20:24 :11 Yes 81mg 81 mg, Oral, DAILY, First dose on 11/01/24 at 0900, Until Discontinu ed, Routine [facility] clopidogreL (PLAVIX) 75 mg tablet 75 mg clopidogreL (PLAVIX) 75 mg tablet 75 mg 11-01 14:00: 00 11-04 20:24 :11 Yes 75mg 75 mg, Oral, DAILY, First dose on Sat11/01/24 at 0900, Until Discontinu ed, Routine [facility] enoxaparin (LOVENOX) injection 40 mg enoxaparin (LOVENOX) injection 40 mg 11-01 14:00: 00 11-01 17:27 :16 Yes 40mg 40 mg, Subcutaneo us, DAILY, First dose on 11/01/24 at 0900, Until Discontinu ed, [facility]-A microsphr (OPTISON) injection 3 mL 11-01 13:45: 00 11-01 13:45 :00 No [id number] 3mL 3 mL, IV Push, ONCE, 1 dose, On 11/01/24 at 0845, Routine [facility] famotidine (PEPCID AC) tablet 20 mg famotidine (PEPCID AC) tablet 20 mg 11-01 13:00: 00 11-02 00:40 :46 Yes 20mg 20 mg, Oral, BID, First dose on Sat11/01/24 at 0800, Until Discontinu ed, Routine [facility] morphine (2 mg/mL) injection 2 mg morphine (2 mg/mL) injection 2 mg 11-01 10:00: 00 11-01 09:28 :00 Yes 2mg 2 mg, Slow IV Push, ONCE, 1 dose, On Sat11/01/24 at 0500, Routine [facility] NaCl 0.9% (NS) IV infusion 1,000 mL 11-01 09:30: 00 11-02 16:23 :00 No 1000mL at 75 mL/hr, IV Infusion, ONCE, 1 dose, On Sat11/01/24 at 0430, Routine [facility] ALPRAZolam (XANAX) tablet 1 mg [id number] 4-27 06:46: 25 11-01 23:35 :16 Yes 1mg 1 mg, Oral, BIDPRN, Starting on Sat11/01/24 at 0146, Until Sat11/01/24 at 1835, Routine, Anxiety [facility] methocarbam oL (ROBAXIN) tablet 500 mg methocarbam oL (ROBAXIN) tablet 500 mg 11-01 06:45: 47 11-04 20:24 :11 Yes 500mg 500 mg, Oral, Q6HPRN, Starting on Sat11/01/24 at 0145, Until Sat11/04/24 at 1524, Routine, Muscle Spasms [facility] ketorolac (TORADOL) injection 15 mg ketorolac (TORADOL) injection 15 mg 11-01 04:50: 40 11-01 23:34 :04 Yes 15mg 15 mg, Slow IV Push, Q6HPRN, Starting on 10/31/24 at 2350, Until 11/01/24 at 1834, Routine, Pain (scale 7-10) [facility] ondansetron (ZOFRAN (PF)) injection 4 mg ondansetron (ZOFRAN (PF)) injection 4 mg 11-01 04:50: 11 11-04 20:24 :11 Yes 4mg 4 mg, Slow IV Push, Q6HPRN, Starting on 10/31/24 at 2350, Until 11/04/24 at 1524, Administer over 2-5 Minutes, 2 mL [facility] morpHINE (4 mg/mL) injection 4 mg 11-01 04:15: 00 11-01 04:06 :00 No 4mg 4 mg, Slow IV Push, ONCE, 1 dose, On 10/31/24 at 2315, STAT [facility] maalox/diph enhydrAMINE :lidocaine2 %viscous 1:1:1: suspension (COMPOUNDED ) 11-01 04:15: 00 11-01 04:06 :00 No 15mL 15 mL, Oral, ONCE, 1 dose, On 10/31/24 at 2315, Routine [facility] morpHINE (4 mg/mL) injection 4 mg 11-01 03:15: 00 11-01 03:10 :00 No 4mg 4 mg, Slow IV Push, ONCE, 1 dose, On 10/31/24 at 2215, STAT [facility] ondansetron (ZOFRAN (PF)) injection 4 mg 11-01 03:15: 00 11-01 03:12 :00 No 4mg 4 mg, Slow IV Push, ONCE, 1 dose, On 10/31/24 at 2215, Administer over 2-5 Minutes, 2 mL [facility] nitroglycer in (NITROSTAT) sublingual tablet 0.4 mg 11-01 03:15: 00 11-01 02:58 :00 No .4mg 0.4 mg, Sublingual , ONCE, 1 dose, On 10/31/24 at 2215, ROSELYN [facility] iopamidol (ISOVUE 370-500 mL) injection 100 mL 10-24 04:30: 00 10-24 04:30 :00 No [id number] 100mL 100 mL, Intravenou s, ONCE, 1 dose, On Sat10/23/24 at 2330, Routine [facility] cefTRIAXone (ROCEPHIN) 1,000 mg in water for injection, sterile 10 mL IV Push 10-24 03:00: 00 10-24 02:54 :00 No 1000mg 1,000 mg, Intravenou s, ONCE, 1 dose, On Sat10/23/24 at 2200, 10 mL, Reason for Anti-Infec tive: Empiric Therapy for Suspected Infection, Empiric Therapy Site: Urine, Duration of therapy: Once (ED) [facility] NaCl 0.9% (NS) bolus infusion 1,000 mL 10-24 01:30: 00 10-24 04:03 :00 No 1000mL at 999 mL/hr, 1,000 mL, IV Infusion, ONCE, 1 dose, On Sat10/23/24 at 2030, STAT [facility] ondansetron (ZOFRAN (PF)) injection 4 mg 10-24 01:30: 00 10-24 02:26 :00 No 4mg 4 mg, Slow IV Push, ONCE, 1 dose, On Sat10/23/24 at 2030, Administer over 2-5 Minutes, 2 mL [facility] morpHINE (4 mg/mL) injection 6 mg 10-24 01:30: 00 10-24 02:22 :00 No 6mg 6 mg, Slow IV Push, ONCE, 1 dose, On Sat10/23/24 at 2030, STAT [facility] hydrOXYzine Pamoate 50 MG oral Capsule 10-23 10:46: 10 10-23 00:00 :00 No [id number] 50mg Q.5D Take 1 capsule (50 mg total) by mouth as needed in the morning and 1 capsule (50 mg total) as needed in the evening for anxiety. Kellee pinedo Sertraline HCl 200 MG oral Capsule 10-23 10:16: 17 Yes 1{capsu le} QD Take 1 capsule by mouth daily. Kellee pinedo famotidine (PEPCID) 20 mg tablet 18 00:00: 00 Yes [id number] 20mg Take 1 tablet by mouth in the morning and 1 tablet in the evening. [facility] hydrOXYzine Pamoate 50 MG oral Capsule 18 00:00: 00 Yes [id number] 50mg Q.5D Take 1 capsule (50 mg total) by mouth as needed in the morning and 1 capsule (50 mg total) as needed in the evening for anxiety. Kellee pinedo Eszopiclone 2 MG oral Tablet 10-23 00:00: 00 Yes [id number] 2mg QD Take 1 tablet (2 mg total) by mouth nightly Take immediatel y before bedtime. Kellee pinedo Ascorbic Acid (Vitamin C) 250 MG oral Tablet 10-23 00:00: 00 Yes [id number] 250mg QD Take 1 tablet (250 mg total) by mouth daily. Kellee pinedo cefdinir 300 mg capsule 10-23 00:00: 00 11-04 00:00 :00 No [id number] 300mg Take 1 capsule by mouth in the morning and 1 capsule in the evening. Do all this for 8 days. [facility] ondansetron 4 mg disintegrat ing tablet 10-23 00:00: 00 11-01 00:00 :00 No [id number] 4mg Take 1 tablet by mouth every 12 (twelve) hours as needed for Nausea and Vomiting (N/V). [facility] HYDROcodone -acetaminop hen 5-325 mg tablet 18 00:00: 00 10-31 04:59 :00 Yes [id number] 1{tbl} Take 1 tablet by mouth every 6 (six) hours as needed for Pain (scale 7-10) for up to 7 days. Indication s: acute pain [facility] Methocarbam ol 750 MG oral Tablet 15 00:00: 00 Yes [id number] 750mg QD Take 1 tablet (750 mg total) by mouth daily. Kellee pinedo Belsomra 20 MG oral Tablet 15 00:00: 00 10-23 00:00 :00 No [id number] 1{tbl} QD TAKE 1 TABLET BY MOUTH EVERY DAY AT NIGHT Kellee pinedo Ketorolac Tromethamin e 10 MG oral Tablet 10 00:00: 00 Yes Kellee pinedo morphine (2 mg/mL) injection 2 mg 08 07:30: 00 10-13 07:35 :00 No 2mg 2 mg, Slow IV Push, ONCE, 1 dose, On Sat10/13/24 at 0230, Routine [facility] ondansetron (ZOFRAN (PF)) injection 4 mg 08 05:15: 00 10-13 05:20 :00 No 4mg 4 mg, Slow IV Push, ONCE, 1 dose, On Sat10/13/24 at 0015, Administer over 2-5 Minutes, 2 mL [facility] morphine (2 mg/mL) injection 2 mg 10-13 05:15: 00 10-13 05:18 :00 No 2mg 2 mg, Slow IV Push, ONCE, 1 dose, On Sat10/13/24 at 0015, Routine [facility] aspirin chewable tablet 243 mg 08 04:00: 00 10-13 04:13 :00 No 243mg 243 mg, Oral, Once, 1 dose, On Sat10/12/24 at 2300, Routine [facility] nitroglycer in (NITROSTAT) sublingual tablet 0.4 mg 08 03:55: 07 Yes .4mg 0.4 mg, Sublingual , Q5MIN PRN, 3 doses, Starting on Sat10/12/24 at 2255, Until Discontinu ed, ROSELYN, Chest pain [facility] Haloperidol 1 MG oral Tablet 10-09 00:00: 00 Yes TAKE 1 ORAL TABLET AT BEDTIME FOR 2 WEEKS INCREASE TO 2 ORAL TABLETS AT BEDTIME AFTER 2 WEEKS. Kellee pinedo hydrOXYzine HCl 10 MG oral Tablet 04 00:00: 00 10-23 00:00 :00 No Kellee pinedo Haloperidol 0.5 MG oral Tablet 3-07 00:00: 00 10-23 00:00 :00 No .5mg Take 1 tablet (0.5 mg total) by mouth at bedtime. Kellee pinedo Methocarbam ol 750 MG oral Tablet 09-07 00:00: 00 Yes [id number] 750mg Q.25D TAKE 1 TABLET (750 MG TOTAL) BY MOUTH 4 TIMES DAILY. Kellee pinedo Belsomra 20 MG oral Tablet 09-07 00:00: 00 Yes [id number] 1{tbl} QD TAKE 1 TABLET BY MOUTH EVERY DAY AT NIGHT Kellee pinedo Aspirin Low Dose 81 MG oral Tablet Delayed Response 09-01 00:00: 00 Yes [id number] 81mg QD TAKE 1 TABLET BY MOUTH [...] Tablet Therapy Pack 08-05 00:00: 00 Yes [id number] 1{heena} Take 1 heena by mouth See Admin Instructio ns Use as directed. Kellee pinedo Guaifenesin (Mucinex) 600 MG oral Tablet 12 Hour Sustained Release 08-05 00:00: 00 Yes [id number] 1200mg Q.5D Take 2 tablets (1,200 mg total) by mouth 2 times daily. Kellee pinedo Albuterol HFA 108 (90 Base) MCG/ACT IN AERS 08-05 00:00: 00 10-23 00:00 :00 No [id number] 2{puff} Q.25D Inhale 2 puffs into the lungs every 6 hours as needed for wheezing or shortness of breath. Kellee pinedo Belsomra 20 MG oral Tablet 08-04 00:00: 00 Yes [id number] 1{tbl} QD TAKE 1 TABLET BY MOUTH EVERY DAY AT NIGHT Kellee pinedo Aspirin Low Dose 81 MG oral Tablet Delayed Response 08-04 00:00: 00 Yes [id number] 81mg QD TAKE 1 TABLET BY MOUTH [...] On 07/19/24 at 0200, Routine [facility] ipratropium -albuteroL (DUONEB) 0.5 mg-3 mg(2.5 mg base)/3 mL nebulizer solution 3 mL 07-19 08:00: 00 07-19 07:04 :00 No 3mL 3 mL, Inhalation , ONCE, 1 dose, On 07/19/24 at 0200, Routine [facility] azithromyci n (ZITHROMAX) tablet 500 mg 07-19 07:00: 00 07-19 07:05 :00 No 500mg 500 mg, Oral, ONCE, 1 dose, On 07/19/24 at 0100, ROSELYN, Reason for Anti-Infec tive: Documented Infection, Documented Infection Site: Respirator y, Duration of Therapy: Once (ED) [facility] iopamidol (ISOVUE 370-500 mL) injection 75 mL 07-19 06:45: 00 07-19 06:45 :00 No [id number] 75mL 75 mL, Intravenou s, ONCE, 1 dose, On 07/19/24 at 0045, Routine [facility] nitroglycer in (NITROL) 2 % ointment 0.5 Inch 07-19 06:00: 00 07-19 05:11 :00 No .5[in_u s] 0.5 Inch, Transderma l (Apply To Skin), ONCE, 1 dose, On 07/19/24 at 0000, RO[facility]LYN [facility] ketorolac (TORADOL) injection 15 mg 07-19 06:00: 00 07-19 05:09 :00 No 15mg 15 mg, Slow IV Push, ONCE, 1 dose, On 07/19/24 at 0000, RO[facility]LYN [facility] azithromyci n (ZITHROMAX Z-HEENA) 250 mg tablet 07-19 00:00: 00 11-01 00:00 :00 No [id number] 250mg Take 1 tablet by mouth SEE-INSTRU CTIONS. Take 500 mg day 1, then 250 mg days 2 to 5. [facility] predniSONE 20 mg tablet 07-19 00:00: 00 11-01 00:00 :00 No [id number] 1 PO BID x 4 days [facility] Sertraline HCl 50 MG oral Tablet 1- 00:00: 00 10-23 00:00 :00 No [id number] TAKE 1 TABLET BY MOUTH DAILY TAKE IN ADDITION TO 100 MG TABLET FOR A TOTAL DOSE OF 150 MG DAILY. Kellee Ariasnicolbeck Leiva Shobha lee Sertraline HCl 100 MG oral Tablet - 00:00: 00 10-23 00:00 :00 No [id number] TAKE 1 TABLET BY MOUTH EVERY MORNING TAKE IN ADDITION TO 50 MG TABLET FOR A TOTAL DOSE OF 150 MG DAILY. Kellee Ariasazra Yeager l iopamidol (ISOVUE 370-500 mL) injection 100 mL 2023-07 06:45: 00 07-04 06:45 :00 No [id number] 100mL 100 mL, Intravenou s, ONCE, 1 dose, On Sat07/04/24 at 0045, Routine [facility] morpHINE (4 mg/mL) injection 4 mg 2023-07 06:30: 00 07-04 06:29 :00 No 4mg 4 mg, Slow IV Push, ONCE, 1 dose, On Sat07/04/24 at 0030[facility] (PHENERGAN) 12.5 mg in NS 50 mL IV piggyback (CNR) 2023-07 05:15: 00 07-04 05:30 :00 No 12.5mg 12.5 mg, IV Piggyback, at 200 mL/hr Administer over 15 Minutes, ONCE, 1 dose, On Sat07/03/24 at 2315, [facility] mor[facility] (4 mg/mL) injection 4 mg 2023-07 03:30: 00 07-04 03:49 :00 No 4mg 4 mg, Slow IV Push, ONCE, 1 dose, On Sat07/03/24 at 2130, STAT [facility] ondansetron (ZOFRAN (PF)) injection 4 mg 2023-07 03:30: 00 07-04 03:50 :00 No 4mg 4 mg, Slow IV Push, ONCE, 1 dose, On Sat07/03/24 at 2130, Administer over 2-5 Minutes, 2 mL [facility] NaCl 0.9% (NS) IV infusion 1,000 mL 2023-07 03:18: 00 07-04 04:56 :00 No 1000mL at 999 mL/hr, Intravenou s, ONCE, 1 dose, On Sat07/03/24 at 2130, RO[facility]N [facility] sodium chloride (NS) injection 5 mL 2023-07 02:16: 03 Yes 5mL 5 mL, Intravenou s, PRN, Starting on Sat07/03/24 at 2016, Until Discontinu ed, Routine, IV line flushing [facility] benzonatate 100 mg capsule 2023-07 00:00: 00 Yes [id number] 100mg Take 1 capsule by mouth 3 (three) times daily as needed for Cough. [facility] proMETHazin e 25 mg tablet 2023-07 00:00: 00 11-01 00:00 :00 No [id number] 25mg Take 1 tablet by mouth every 6 (six) hours as needed for Nausea and Vomiting (N/V). [facility] dicyclomine 10 mg capsule 2023-07 00:00: 00 11-01 00:00 :00 No [id number] 10mg Take 1 capsule by mouth 3 (three) times daily as needed for Abdominal pain. [facility] Gabapentin 300 MG oral Capsule 2023-07 00:00: 00 Yes 1 cap po 30-60 min prior to MRI. Kellee pinedo cephALEXin (KEFLEX) capsule 500 mg 2023-07 08:45: 00 06-21 08:53 :00 No 500mg 500 mg, Oral, ONCE, 1 dose, On Sat06/21/24 at 0245, ROSELYN, Reason for Anti-Infec tive: Documented Infection, Documented Infection Site: Skin / Soft Tissue, Duration of Therapy: Once (ED) [facility] doxycycline hyclate (Vibramycin ) capsule 100 mg 2023-07 08:45: 00 06-21 08:53 :00 No 100mg 100 mg, Oral, ONCE, 1 dose, On Sat06/21/24 at 0245, ROSELYN, Reason for Anti-Infec tive: Documented Infection, Documented Infection Site: Skin / Soft Tissue, Duration of Therapy: Once (ED) [facility] doxycycline hyclate 100 mg capsule 2023-07 00:00: 00 06-29 05:59 :00 No [id number] 100mg Take 1 capsule by mouth in the morning and 1 capsule in the evening. Do all this for 7 days. [facility] cephALEXin 500 mg capsule 2023-07 00:00: 00 06-29 05:59 :00 No [id number] 500mg Take 1 capsule by mouth 4 (four) times daily for 7 days. [facility] iopamidol (ISOVUE 370-500 mL) injection 100 mL 2023-07 06:30: 00 06-15 06:30 :00 No [id number] 100mL 100 mL, Intravenou s, ONCE, 1 dose, On Sat06/15/24 at 0030, Routine [facility] morpHINE (4 mg/mL) injection 4 mg 2023-07 06:00: 00 06-15 05:57 :00 No 4mg 4 mg, Slow IV Push, ONCE, 1 dose, On Sat06/15/24 at 0000, STAT [facility] proMETHazin e (PHENERGAN) 12.5 mg in NS 50 mL IV piggyback (CNR) 2023-07 05:15: 00 06-15 05:56 :00 No 12.5mg 12.5 mg, IV Piggyback, at 200 mL/hr Administer over 15 Minutes, ONCE, 1 dose, On Sat06/14/24 at 2315, ROSELYN [facility] NaCl 0.9% (NS) IV infusion 1,000 mL 2023-07 04:30: 00 06-15 05:28 :00 No 1000mL at 999 mL/hr, Intravenou s, ONCE, 1 dose, On Sat06/14/24 at 2230, Routine [facility] fentanyl PF (SUBLIMAZE (PF)) injection 50 mcg 2023-07 04:00: 00 06-15 04:23 :00 No 50ug 50 mcg, Slow IV Push, ONCE, 1 dose, On 06/14/24 at 2200, Routine [facility] famotidine (PEPCID (PF)) injection 20 mg 2023-07 03:30: 00 06-15 04:18 :00 No 20mg 20 mg, Slow IV Push, ONCE, 1 dose, On 06/14/24 at 2130, RO[facility]N [facility] ondansetron (ZOFRAN (PF)) injection 4 mg 2023-07 03:30: 00 06-15 04:20 :00 No 4mg 4 mg, Slow IV Push, ONCE, 1 dose, On 06/14/24 at 2130, Administer over 2-5 Minutes, 2 mL [facility] proMETHazin e 25 mg tablet 2023-07 00:00: 00 11-01 00:00 :00 No [id number] 25mg Take 1 tablet by mouth every 6 (six) hours as needed for Nausea and Vomiting (N/V). [facility] morpHINE (4 mg/mL) injection 4 mg 2023-07 08:15: 00 06-07 08:11 :00 No 4mg 4 mg, Slow IV Push, ONCE, 1 dose, On 06/07/24 at 0215, STAT [facility] ondansetron (ZOFRAN (PF)) injection 4 mg 2023-07 05:15: 00 06-07 05:23 :00 No 4mg 4 mg, Slow IV Push, ONCE, 1 dose, On 06/06/24 at 2315, Administer over 2-5 Minutes, 2 mL [facility] morpHINE (4 mg/mL) injection 4 mg 2023-07 05:15: 00 06-07 05:21 :00 No 4mg 4 mg, Slow IV Push, ONCE, 1 dose, On 06/06/24 at 2315, STAT [facility] nitroglycer in (NITROSTAT) sublingual tablet 0.4 mg 2023-07 05:08: 35 Yes .4mg 0.4 mg, Sublingual , Q5MIN PRN, 3 doses, Starting on 06/06/24 at 2308, Until Discontinu ed, ROSELYN, Chest pain [facility] hydrOXYzine Pamoate 50 MG oral Capsule 2023-07 13:02: 35 Yes [id number] 50mg Q.5D Take 1 capsule (50 mg total) by mouth 2 times daily as needed for anxiety. Kellee pinedo Vitamin D, Ergocalcife rol, 1.25 MG (75308 UT) oral Capsule 2023-07 00:00: 00 Yes [id number] [id number] Q1W Take 1 capsule (50,000 units total) by mouth once a week. Kellee pinedo ondansetron (ZOFRAN-ODT ) disintegrat ing tablet 4 mg 2023-07 20:15: 00 05-19 19:27 :00 No 4mg 4 mg, Oral, ONCE, 1 dose, On Sat05/19/24 at 1415, Routine [facility] HYDROcodone -acetaminop hen (NORCO 5) tablet 1 tablet 2023-07 18:00: 00 05-19 19:27 :00 No 1{tbl} 1 tablet, Oral, ONCE, 1 dose, On Sat05/19/24 at 1200, ROSELYN [facility] ondansetron 4 mg disintegrat ing tablet 2023-07 00:00: 00 11-01 00:00 :00 No [id number] 4mg Take 1 tablet by mouth every 8 (eight) hours as needed for Nausea and Vomiting (N/V). [facility] hydrOXYzine Pamoate 50 MG oral Capsule 2023-07 10:26: 29 Yes [id number] 50mg Q.5D Take 1 capsule (50 mg total) by mouth 2 times daily as needed for anxiety. Kellee pinedo ondansetron (ZOFRAN (PF)) injection 4 mg 2023-07 03:45: 00 05-18 03:42 :00 No 4mg 4 mg, Slow IV Push, ONCE, 1 dose, On 05/17/24 at 2145, [facility] morpHINE (4 mg/mL) injection 4 mg 2023-07 03:45: 00 05-18 03:42 :00 No 4mg 4 mg, Slow IV Push, ONCE, 1 dose, On 05/17/24 at 2145, [facility] ondansetron (ZOFRAN (PF)) injection 4 mg 2023-07 01:00: 00 05-18 01:21 :00 No 4mg 4 mg, Slow IV Push, ONCE, 1 dose, On 05/17/24 at 1900, [facility] fentanyl PF (SUBLIMAZE (PF)) injection 50 mcg 2023-07 01:00: 00 05-18 01:21 :00 No 50ug 50 mcg, Slow IV Push, ONCE, 1 dose, On 05/17/24 at 1900, [facility] Suvorexant (Belsomra) 20 MG oral Tablet 2023-07 00:00: 00 Yes [id number] 1{tbl} QD Take 1 tablet by mouth nightly. Kellee pinedo Methocarbam ol 750 MG oral Tablet 2023-07 00:00: 00 Yes [id number] 750mg Q.25D Take 1 tablet (750 mg total) by mouth 4 times daily. Kellee pinedo Acetaminoph en-Codeine 300-30 MG oral Tablet 2023-07 00:00: 00 Yes [id number] Kellee pinedo Lorazepam (ATIVAN) 0.5 MG oral Tablet tablet 2023-07 00:00: 00 Yes [id number] .5mg Q.5D Take 1 tablet (0.5 mg total) by mouth 2 times daily as needed for anxiety. Kellee pinedo Sertraline HCl 50 MG oral Tablet 2023-07 00:00: 00 Yes [id number] 50mg QD Take 1 tablet (50 mg total) by mouth daily Take in addition to 100 mg tablet for a total dose of 150 mg daily. Kellee pinedo Sertraline HCl 100 MG oral Tablet 2023-07 00:00: 00 Yes [id number] 100mg Take 1 tablet (100 mg total) by mouth every morning Take in addition to 50 mg tablet for a total dose of 150 mg daily. Kellee pinedo Isosorbide Mononitrate CR 30 MG oral TABLET SR 24 HR 2023-07 00:00: 00 Yes [id number] Kellee pinedo ondansetron (ZOFRAN (PF)) injection 4 mg 2023-07 01:30: 00 05-08 00:31 :00 No 4mg 4 mg, Slow IV Push, ONCE, 1 dose, On [place] 05/07/24 at 2030, ROSELYN [facility] morpHINE (4 mg/mL) injection 4 mg 2023-07 01:30: 00 05-08 01:20 :00 No 4mg 4 mg, Slow IV Push, ONCE, 1 dose, On [place] 05/07/24 at 2030, STAT [facility] ketorolac (TORADOL) injection 15 mg 2023-07 01:30: 00 05-08 00:30 :00 No 15mg 15 mg, Slow IV Push, ONCE, 1 dose, On [place] 05/07/24 at 2030, [facility] mg tablet 2023-07 00:00: 00 11-01 00:00 :00 No [id number] 200mg Take 1 tablet by mouth in the morning and 1 tablet at noon and 1 tablet in the evening. [facility] Rosuvastati n Calcium 20 MG oral Tablet 2023-07 00:00: 00 Yes 20mg QD Take 1 tablet (20 mg total) by mouth daily. Kellee pinedo Metoprolol Succinate 25 MG oral TABLET SR 24 HR 2023-07 00:00: 00 Yes [id number] 25mg QD Take 1 tablet (25 mg total) by mouth daily. Kellee Parrisha l Dicyclomine HCl 20 MG oral Tablet 2023-07 0 00:00: 00 Yes Kellee Ariasazra pinedo Ondansetron (ZOFRAN) 4 MG oral TABLET DISPERSIBLE 2023-07 00:00: 00 Yes 4mg Q.[id number] 3D Take 1 tablet (4 mg total) by mouth 3 times daily. Kellee Ariasazra pinedo Belsomra 20 MG oral Tablet 2023-07 00:00: 00 05-18 00:00 :00 No [id number] 1{tbl} QD take 1 tablet by mouth every day at night Kellee Marcio pinedo Nitrofurant oin (Macrobid *) 100 Mg CAP Nitrofurant oin (Macrobid *) 100 Mg CAP 2023-07 0 18:32: [address] [facility] [place] [place] [facility] Ondansetron Hcl (Zofran *) 4 Mg Tablet Disint Ondansetron Hcl (Zofran *) 4 Mg Tablet Disint 2023-07 0 18:32: 00 Yes 1 [facility] cefTRIAXone (ROCEPHIN) 1,000 mg in NaCl 0.9% (NS) 100 mL MINI-BAG 2023-07 0 01:15: 00 04-09 01:24 :00 No 1000mg 1,000 mg, IV Piggyback, ONCE, 1 dose, On Sat04/08/24 at 2015, Administer over 30 Minutes, 100 mL, Reason for Anti-Infec tive: Documented Infection, Documented Infection Site: Urine, Duration of Therapy: Once (ED) [facility] fentanyl PF (SUBLIMAZE (PF)) injection 25 mcg 2023-07 0 00:15: 00 04-09 00:18 :00 No 25ug 25 mcg, Slow IV Push, ONCE, 1 dose, On Sat04/08/24 at 1915, STAT [facility] NaCl 0.9% (NS) bolus infusion 1,000 mL 2023-07 0 23:45: 00 04-09 01:24 :00 No 1000mL at 999 mL/hr, 1,000 mL, IV Infusion, ONCE, 1 dose, On Sat04/08/24 at 1845, [facility] ondansetron (ZOFRAN (PF)) injection 4 mg 2023-07 23:00: 00 04-08 22:57 :00 No 4mg 4 mg, Slow IV Push, ONCE, 1 dose, On Sat04/08/24 at 1800, [facility] ketorolac (TORADOL) injection 30 mg 2023-07 23:00: 00 04-08 22:57 :00 No 30mg 30 mg, Slow IV Push, ONCE, 1 dose, On Sat04/08/24 at 1800, [facility] sodium chloride (NS) injection 5 mL 2023-07 22:33: 00 Yes 5mL 5 mL, Intravenou s, PRN, Starting on Sat04/08/24 at 1733, Until Discontinu ed, Routine, IV line flushing [facility] ciprofloxac in HCl 500 mg tablet 2023-07 00:00: 00 11-01 00:00 :00 No [id number] 500mg Take 1 tablet by mouth in the morning and 1 tablet in the evening. [facility] Promethazin e HCl (PHENERGAN) 25 MG oral Tablet 03-14 00:00: 00 Yes 25mg [id number] 3D Take 1 tablet (25 mg total) by mouth every 8 hours as needed for nausea. Kellee pinedo Clopidogrel Bisulfate (PLAVIX) 75 MG oral Tablet 02-09 00:00: 00 Yes [id number] 75mg QD take 1 tablet by mouth every day Kellee pinedo Aspirin Low Dose 81 MG oral Tablet Delayed Response 02-09 00:00: 00 Yes [id number] 81mg QD take 1 tablet by mouth every day Kellee pinedo Methylpredn isolone Acetate (Depo-Medro l) 40 mg/ml - Physician Administere d ([id number]) 02-05 13:21: 25 No [id number] 40mg 40 mg, Physician Administer ed, ONCE, 1 dose, On [place] 02/06/24 at 1145 Kellee pinedo hydrOXYzine Pamoate 50 MG oral Capsule 02-05 11:06: 49 Yes [id number] 50mg Q.5D Take 1 capsule (50 mg total) by mouth 2 times daily as needed for anxiety. Kellee pinedo Isosorbide Mononitrate CR 60 MG oral TABLET SR 24 HR 02-04 00:00: 00 Yes Kellee pinedo Lorazepam (ATIVAN) 0.5 MG oral Tablet tablet 01-09 00:00: 00 Yes [id number] .5mg Q.5D take 1 tablet by mouth 2 times daily as needed for anxiety Kellee pinedo Aspirin (Aspirin Low Dose) 81 MG oral Tablet Delayed Response 01-05 00:00: 00 Yes [id number] 81mg QD Take 1 tablet (81 mg total) by mouth daily. Kellee pinedo Atorvastati n Calcium 40 MG oral Tablet 01-05 00:00: 00 Yes [id number] 40mg QD Take 1 tablet (40 mg total) by mouth daily. Kellee pinedo Suvorexant (Belsomra) 20 MG oral Tablet 01-05 00:00: 00 Yes [id number] 1{tbl} QD Take 1 tablet by mouth nightly. Kellee pinedo Clopidogrel Bisulfate (PLAVIX) 75 MG oral Tablet 01-05 00:00: 00 Yes [id number] 75mg QD Take 1 tablet (75 mg [...] MG oral Capsule 12-12 09:19: 23 Yes [id number] 50mg Q.5D Take 1 capsule (50 mg total) by mouth 2 times daily as needed for anxiety. Kellee pinedo Lorazepam (ATIVAN) 0.5 MG oral Tablet tablet 12-12 00:00: 00 Yes [id number] .5mg Q.5D Take 1 tablet (0.5 mg total) by mouth 2 times daily as needed for anxiety. Kellee pinedo Aspirin Low Dose 81 MG oral Tablet Delayed Response 12-05 00:00: 00 Yes [id number] 81mg Take 1 tablet (81 mg total) by mouth daily. Kellee pinedo Atorvastati n Calcium 40 MG oral Tablet 12-05 00:00: 00 Yes [id number] 40mg Take 1 tablet (40 mg total) by mouth daily. Kellee pinedo Clopidogrel Bisulfate (PLAVIX) 75 MG oral Tablet 12-05 00:00: 00 Yes [id number] 75mg Take 1 tablet (75 mg total) by mouth daily. Kellee pinedo Mometasone Furo-Formot camelia Fum (Dulera) 200-5 MCG/ACT inhalation Aerosol 12-05 00:00: 00 05-18 00:00 :00 No TWICE DAILY Kellee pinedo Vitamin D, Ergocalcife rol, 1.25 MG (52987 UT) oral Capsule 12-04 00:00: 00 Yes [id number] 04017G Q1W Take 1 capsule (50,000 units total) by mouth once a week. Kellee pinedo Ferrous Sulfate 325 (65 Fe) MG oral Tablet 12-04 00:00: 00 Yes [id number] 325mg QD Take 1 tablet (325 mg total) by mouth daily (with breakfast) . Kellee pinedo Clopidogrel Bisulfate (PLAVIX) 75 MG oral Tablet 12-04 00:00: 00 Yes [id number] 75mg QD Take 1 tablet (75 mg total) by mouth. Kellee pinedo Mirtazapine 45 MG oral Tablet 12-02 10:49: 07 12-02 00:00 :00 No [id number] 45mg Take 1 tablet (45 mg total) by mouth nightly. Kellee pinedo hydrOXYzine Pamoate 50 MG oral Capsule 12-02 10:49: 04 Yes [id number] 50mg Q.5D Take 1 capsule (50 mg total) by mouth 2 times daily as needed for anxiety. Kellee pinedo Ascorbic Acid 500 MG oral Tablet 12-02 10:48: 55 12-02 00:00 :00 No 50mg Take 50 mg by mouth. Kellee pinedo Suvorexant (Belsomra) 20 MG oral Tablet 12-02 00:00: 00 Yes [id number] 1{tbl} Take 1 tablet by mouth nightly. Kellee pinedo Lorazepam 1 MG oral Tablet 12-02 00:00: 00 12-12 00:00 :00 No [id number] 1mg Q.5D Take 1 tablet (1 mg total) by mouth 2 times daily as needed for anxiety. Kellee pinedo Doxepin HCl 3 MG oral Tablet 11-27 00:00: 00 05-18 00:00 :00 No [id number] 1{tbl} QD TAKE 1 TABLET BY MOUTH EVERY DAY AT NIGHT Kellee pinedo Aripiprazol e 5 MG oral Tablet 11-27 00:00: 00 05-18 00:00 :00 No [id number] 5mg QD TAKE 1 TABLET (5 MG TOTAL) BY MOUTH DAILY. Kellee pinedo Mirtazapine 45 MG oral Tablet 10-28 13:20: 59 Yes [id number] 45mg Take 1 tablet (45 mg total) by mouth nightly. Kellee pinedo Ascorbic Acid 500 MG oral Tablet 10-28 13:20: 47 Yes 50mg Take 50 mg by mouth. Kellee pinedo hydrOXYzine Pamoate 50 MG oral Capsule 10-28 13:20: 47 10-28 00:00 :00 No [id number] 50mg Q.5D Take 1 capsule (50 mg total) by mouth every 4 to 6 hours as needed. Kellee pinedo Sertraline HCl 150 MG oral Capsule 10-28 13:20: 03 10-28 00:00 :00 No 150mg Take 150 mg by mouth daily. Kellee pinedo Doxepin HCl 3 MG oral Tablet 10-28 00:00: 00 Yes [id number] 1{tbl} Take 1 tablet by mouth nightly. Kellee pinedo Aripiprazol e 5 MG oral Tablet 10-28 00:00: 00 Yes [id number] 5mg Take 1 tablet (5 mg total) by mouth daily. Kellee pinedo Suvorexant 10 MG oral Tablet 10-28 00:00: 00 12-02 00:00 :00 No [id number] 1{tbl} Take 1 tablet by mouth nightly. Kellee pinedo Sertraline HCl 50 MG oral Tablet 10-26 00:00: 00 Yes [id number] Kellee pinedo HYDROcodone -acetaminop hen (NORCO) 10-325 mg tablet 1 tablet 10-10 06:15: 00 10-10 05:25 :00 No 1{tbl} 1 tablet, Oral, ONCE NOW, 1 dose, On Sat10/11/23 at 0115, [facility] iopamidol (ISOVUE 370-500 mL) injection 100 mL 10-10 05:00: 00 10-10 05:00 :00 No [id number] 100mL 100 mL, Intravenou s, ONCE, 1 dose, On Sat10/11/23 at 0000, Routine [facility] ketorolac (TORADOL) injection 30 mg 10-10 04:30: 00 10-10 03:29 :00 No 30mg 30 mg, Slow IV Push, ONCE, 1 dose, On Sat10/10/23 at 2330, Routine [facility] NaCl 0.9% (NS) IV infusion 1,000 mL 10-10 04:15: 00 10-10 05:18 :00 No 1000mL at 999 mL/hr, Intravenou s, ONCE, 1 dose, On [place] 10/10/23 at 2315, Routine [facility] ondansetron (ZOFRAN (PF)) injection 4 mg 10-10 04:00: 00 10-10 03:54 :00 No 4mg 4 mg, Slow IV Push, ONCE, 1 dose, On [place] 10/10/23 at 2300, [facility] morpHINE (4 mg/mL) injection 4 mg 10-10 04:00: 00 10-10 03:54 :00 No 4mg 4 mg, Slow IV Push, ONCE, 1 dose, On [place] 10/10/23 at 2300, STAT [facility] traMADoL (ULTRAM) 50 mg tablet 10-10 00:00: 00 11-01 00:00 :00 No [id number] 50mg Take 1 tablet by mouth every 6 (six) hours as needed for Pain (scale 7-10). Indication s: acute pain [facility] phenazopyri dine 200 mg tablet 10-10 00:00: 00 11-01 00:00 :00 No [id number] 200mg Take 1 tablet by mouth in the morning and 1 tablet at noon and 1 tablet in the evening. [facility] ondansetron (ZOFRAN) 4 mg tablet 10-10 00:00: 00 11-01 00:00 :00 No [id number] 4mg Take 1 tablet by mouth every 8 (eight) hours as needed for Nausea and Vomiting (N/V). [facility] ketorolac 10 mg tablet 10-10 00:00: 00 11-01 00:00 :00 No [id number] 10mg Take 1 tablet by mouth every 6 (six) hours as needed for Pain (scale 7-10). [facility] Sertraline HCl 100 MG oral Tablet 4-04 00:00: 00 Yes [id number] 100mg Take 1 tablet (100 mg total) by mouth every morning. Kellee Buckley - Shobha pinedo acetaminoph en (TYLENOL) tablet 975 mg 2022-07 04:15: 00 07-02 03:11 :00 No 975mg 975 mg, Oral, ONCE, 1 dose, On Sat07/01/23 at 2215, [facility] dicyclomine (BENTYL) tablet 20 mg 2022-07 03:15: 00 07-02 03:11 :00 No 20mg 20 mg, Oral, ONCE, 1 dose, On Sat07/01/23 at 2115, [facility] ketorolac (TORADOL) injection 30 mg 2022-07 03:15: 00 07-02 02:32 :00 No 30mg 30 mg, Slow IV Push, ONCE, 1 dose, On Sat07/01/23 at 2115, Routine [facility] ondansetron (ZOFRAN (PF)) injection 4 mg 2022-07 03:00: 00 07-02 02:03 :00 No 4mg 4 mg, Slow IV Push, ONCE, 1 dose, On Sat07/01/23 at 2100, [facility] NaCl 0.9% (NS) bolus infusion 1,000 mL 2022-07 03:00: 00 07-02 04:10 :00 No 1000mL at 999 mL/hr, 1,000 mL, IV Infusion, ONCE, 1 dose, On Sat07/01/23 at 2100, STAT [facility] dicyclomine 20 mg tablet 2022-07 00:00: 00 11-01 00:00 :00 No [id number] 20mg Take 1 tablet by mouth 4 (four) times daily. [facility] ondansetron 4 mg disintegrat ing tablet 2022-07 00:00: 00 11-01 00:00 :00 No [id number] 4mg Take 1 tablet by mouth every 4 (four) hours as needed for Nausea and Vomiting (N/V). [facility] Alprazolam (Alprazolam *) 1 Mg TAB Alprazolam (Alprazolam *) 1 Mg TAB 2022-07 12:08: 00 06-14 00:00 :[address] [facility] [place] [place] [facility] Trazodone Hcl (Desyrel 100 Mg*) 100 Mg TAB Trazodone Hcl (Desyrel 100 Mg*) 100 Mg TAB 2022-07 12:07: 00 06-06 12:08 :[address] [facility] [place] [place] [facility] Aspirin (Aspirin Ec) 81 Mg Tablet Aspirin (Aspirin Ec) 81 Mg Tablet 2022-07 11:55: 00 07-07 00:00 :[address] [facility] [place] [place] [facility] Alprazolam (Xanax 2 Mg*) 2 Mg TAB Alprazolam (Xanax 2 Mg*) 2 Mg TAB 2022-07 11:09: 40 06-06 12:08 :[address] [facility] [place] [place] [facility] Trazodone Hcl (Desyrel 300 Mg*) 300 Mg TAB Trazodone Hcl (Desyrel 300 Mg*) 300 Mg TAB 2022-07 11:09: 39 05-13 15:45 :00 No 300 [facility] Alprazolam 1 MG oral Tablet 2022-07 00:00: 00 12-12 00:00 :00 No [id number] 2mg Take 2 tablets (2 mg total) by mouth 2 times daily. Kellee pinedo Pantoprazol e * (Protonix Ec *) 20 Mg Tablet Pantoprazol e * (Protonix Ec *) 20 Mg Tablet 2022-07 15:44: 00 06-05 00:28 :[address] [facility] [place] [place] [facility] Sucralfate (Carafate *) 1 Gm TAB Sucralfate (Carafate *) 1 Gm TAB 2022-07 15:44: 00 06-05 00:28 :00 No 1 [facility] Ciprofloxac in Hcl (Cipro *) 500 Mg TAB Ciprofloxac in Hcl (Cipro *) 500 Mg TAB 2022-07 15:44: 00 05-16 00:00 :00 No 500 [facility] Pantoprazol e Sodium 20 MG oral Tablet Delayed Response 2022-07 00:00: 00 12-02 00:00 :00 No Take by mouth. Kellee Parrisha lee ketorolac (TORADOL) injection 15 mg 2022-07 01:00: 00 05-10 00:09 :00 No 15mg 15 mg, Slow IV Push, ONCE, 1 dose, On Sat05/09/23 at 2000, [facility] proCHLORper azine (COMPAZINE) injection 5 mg 2022-07 23:30: 00 05-09 22:48 :00 No 5mg 5 mg, Slow IV Push, ONCE, 1 dose, On Sat05/09/23 at 1830[facility] (BENADRYL) injection 25 mg 2022-07 22:45: 00 05-09 22:48 :00 No 25mg 25 mg, Slow IV Push, ONCE, 1 dose, On Sat05/09/23 at 1745, STAT [facility] HYDROcodone -acetaminop hen (NORCO) 10-325 mg tablet 1 tablet 2022-07 02:00: 00 05-01 01:04 :00 No 1{tbl} 1 tablet, Oral, ONCE, 1 dose, On Sat04/30/23 at 2100, Routine [facility] iopamidol (ISOVUE 370-500 mL) injection 100 mL 2022-07 0 00:45: 00 05-01 00:45 :00 No [id number] 100mL 100 mL, Intravenou s, ONCE, 1 dose, On Sat04/30/23 at 1945, Routine [facility] NaCl 0.9% (NS) bolus infusion 1,000 mL 2022-07 00:00: 00 05-01 00:45 :00 No 1000mL at 999 mL/hr, 1,000 mL, IV Piggyback, ONCE, 1 dose, On Sat04/30/23 at 1900, STAT [facility] proCHLORper azine (COMPAZINE) injection 5 mg 2022-07 23:45: 00 04-30 23:09 :00 No 5mg 5 mg, Slow IV Push, ONCE, 1 dose, On Sat04/30/23 at 1845, [facility] diphenhydrA MINE (BENADRYL) injection 25 mg 2022-07 23:00: 00 04-30 23:09 :00 No 25mg 25 mg, Slow IV Push, ONCE, 1 dose, On Sat04/30/23 at 1800, STAT [facility] dicyclomine 20 mg tablet 2022-07 00:00: 00 07-01 00:00 :00 No [id number] 20mg Take 1 tablet by mouth 4 (four) times daily. [facility] acetaminoph en (TYLENOL) tablet 1,000 mg 2022-07 02:45: 00 04-17 02:43 :00 No 1000mg 1,000 mg, Oral, ONCE, 1 dose, On Sat04/16/23 at 2145, [facility] ondansetron (ZOFRAN (PF)) injection 4 mg 2022-07 0 03:15: 00 04-09 02:13 :00 No 4mg 4 mg, Slow IV Push, ONCE, 1 dose, On Sat04/08/23 at 2215, [facility] dicyclomine (BENTYL) tablet 20 mg 2022-07 0-03 03:15: 00 04-09 02:16 :00 No 20mg 20 mg, Oral, ONCE, 1 dose, On Sat04/08/23 at 2215, Routine [facility] ondansetron (ZOFRAN (PF)) injection 4 mg 2022-07 23:45: 00 04-08 23:16 :00 No 4mg 4 mg, Slow IV Push, ONCE, 1 dose, On 04/08/23 at 1845, [facility] morpHINE (2 mg/mL) injection 4 mg 2022-07 23:45: 00 04-08 23:45 :00 No 4mg 4 mg, Slow IV Push, ONCE, 1 dose, On 04/08/23 at 1845, STAT [facility] ondansetron 4 mg disintegrat ing tablet 2022-07 00:00: 00 07-01 00:00 :00 No [id number] 4mg Take 1 tablet by mouth every 8 (eight) hours as needed for Nausea and Vomiting (N/V). [facility] dicyclomine 20 mg tablet 2022-07 00:00: 00 04-30 00:00 :00 No [id number] 20mg Take 1 tablet by mouth 4 (four) times daily. [facility] acetaminoph en (TYLENOL) tablet 1,000 mg 03-10 04:30: 00 03-10 04:29 :00 No 1000mg 1,000 mg, Oral, ONCE, 1 dose, On 03/09/23 at 2330, [facility] iopamidol (ISOVUE 370-500 mL) injection 85 mL 03-10 04:30: 00 03-10 04:30 :00 No [id number] 85mL 85 mL, Intravenou s, ONCE, 1 dose, On 03/09/23 at 2330, Routine [facility] FENTanyl PF (SUBLIMAZE (PF)) injection 75 mcg 03-10 04:00: 00 03-10 02:58 :00 No 75ug 75 mcg, Slow IV Push, ONCE, 1 dose, On 03/09/23 at 2300, STAT [facility] NaCl 0.9% (NS) IV infusion 1,000 mL 03-10 03:00: 00 Yes 1000mL at 20 mL/hr, IV Infusion, CONTINUOUS , Starting on 03/09/23 at 2200, Until Discontinu ed, Routine [facility] ondansetron (ZOFRAN (PF)) injection 4 mg 03-10 02:00: 00 03-10 02:01 :00 No 4mg 4 mg, Slow IV Push, ONCE, 1 dose, On 03/09/23 at 2100, [facility] morpHINE (4 mg/mL) injection 4 mg 03-10 02:00: 00 03-10 02:01 :00 No 4mg 4 mg, Slow IV Push, ONCE, 1 dose, On 03/09/23 at 2100, STAT [facility] polyethylen e glycol 3350 (MIRALAX) 17 gram powder 03-09 00:00: 00 11-01 00:00 :00 No [id number] 1{packe t} Take 1 Packet by mouth once daily as needed for Constipati on. [facility] Simethicone 125 mg 03-09 00:00: 00 11-01 00:00 :00 No [id number] 125mg Take 1 capsule by mouth after meals and at bedtime as needed for Gas. [facility] iopamidol (ISOVUE 370-500 mL) injection 100 mL 03-02 06:15: 00 03-02 06:15 :00 No [id number] 100mL 100 mL, Intravenou s, ONCE, 1 dose, On 03/02/23 at 0115, Routine [facility] NaCl 0.9% (NS) IV infusion 1,000 mL 03-02 05:15: 00 Yes 1000mL at 999 mL/hr, Intravenou s, CONTINUOUS , Starting on 03/02/23 at 0015, Until Discontinu ed, Routine [facility] ketorolac (TORADOL) injection 30 mg 03-02 05:15: 00 03-02 04:20 :00 No 30mg 30 mg, Slow IV Push, ONCE, 1 dose, On 03/02/23 at 0015, Routine [facility] ondansetron (ZOFRAN (PF)) injection 4 mg 03-02 05:00: 00 03-02 05:24 :00 No 4mg 4 mg, Slow IV Push, ONCE, 1 dose, On 03/02/23 at 0000, [facility] morpHINE (4 mg/mL) injection 4 mg 03-02 05:00: 00 03-02 05:24 :00 No 4mg 4 mg, Slow IV Push, ONCE, 1 dose, On 03/02/23 at 0000, STAT [facility] ondansetron (ZOFRAN (PF)) injection 4 mg 03-02 04:15: 00 03-02 04:21 :00 No 4mg 4 mg, Slow IV Push, ONCE, 1 dose, On Sat03/01/23 at 2315, [facility] ondansetron (ZOFRAN) 4 mg tablet 03-02 00:00: 00 11-01 00:00 :00 No [id number] 4mg Take 1 tablet by mouth every 8 (eight) hours as needed for Nausea and Vomiting (N/V). [facility] dicyclomine 20 mg tablet 03-02 00:00: 00 04-30 00:00 :00 No [id number] 20mg Take 1 tablet by mouth every 6 (six) hours as needed for Abdominal pain. [facility] metoclopram tracy HCl (REGLAN) injection 10 mg 02-18 06:45: 00 02-18 06:43 :00 No 10mg 10 mg, Slow IV Push, ONCE, 1 dose, On Sat02/18/23 at 0145, [facility] morpHINE (4 mg/mL) injection 4 mg 02-18 05:30: 00 02-18 05:28 :00 No 4mg 4 mg, Slow IV Push, ONCE, 1 dose, On Sat02/18/23 at 0030, STAT [facility] ondansetron (ZOFRAN (PF)) injection 4 mg 02-18 05:30: 00 02-18 05:28 :00 No 4mg 4 mg, Slow IV Push, ONCE, 1 dose, On Sat02/18/23 at 0030, [facility] NaCl 0.9% (NS) bolus infusion 1,000 mL 02-18 05:30: 00 02-18 05:15 :00 No 1000mL at 999 mL/hr, 1,000 mL, IV Infusion, ONCE, 1 dose, On Sat02/18/23 at 0030, STAT [facility] proMETHazin e (PHENERGAN) 25 mg in NaCl 0.9% (NS) 50 mL IV piggyback 02-18 04:30: 00 02-18 04:28 :00 No 25mg 25 mg, IV Piggyback, ONCE, 1 dose, On Sat02/17/23 at 2330, [facility] proMETHazin e 25 mg tablet 02-18 00:00: 00 11-01 00:00 :00 No [id number] 25mg Take 1 tablet by mouth every 6 (six) hours as needed for Nausea and Vomiting (N/V). [facility] bupropion HCl (WELLBUTRIN ORAL) 02-17 16:23: 24 Yes 150mg Take 150 mg by mouth every morning. [facility] melatonin 10 mg Tab 02-17 16:23: 24 Yes 1{tbl} Take 1 tablet by mouth at bedtime. [facility] trazodone HCl (TRAZODONE ORAL) 02-17 16:23: 24 Yes 400mg Take 400 mg by mouth at bedtime. [facility] ALPRAZOLAM ORAL 02-17 16:23: 24 11-04 00:00 :00 No 2mg Take 2 mg by mouth in the morning and 2 mg in the evening. [facility] escitalopra m oxalate (LEXAPRO) 5 mg tablet 02-17 16:23: 11-01 00:00 :00 No 10mg Take 2 tablets by mouth at bedtime. [facility] topiramate (TOPAMAX) 200 mg tablet 02-17 16:23: 11-01 00:00 :00 No 200mg Take 1 tablet by mouth every evening. [facility] OLANZapine (ZYPREXA) 15 mg tablet 02-17 16:23: 11-01 00:00 :00 No 15mg Take 1 tablet by mouth every evening. [facility] melatonin 10 mg Tab 02-17 16:23: 11-01 00:00 :00 No 10mg Take 1 tablet by mouth at bedtime. [facility] lactated ringers IV infusion 1,000 mL 02-17 02:15: 00 02-17 22:14 :00 No 1000mL at 100 mL/hr, 1,000 mL, IV Infusion, CONTINUOUS , Starting on 02/16/23 at 2115, Until 02/17/23 at 1714, Routine [facility] traZODone (DESYREL) tablet 400 mg 02-17 02:00: 00 Yes 400mg 400 mg, Oral, QHS, First dose on 02/16/23 at 2100, Until Discontinu ed [facility] melatonin (MELATIN) tablet 9 mg 02-17 02:00: 00 Yes 9mg 9 mg, Oral, QHS, First dose on 02/16/23 at 2100, Until Discontinu ed [facility] morpHINE (2 mg/mL) injection 2 mg 02-17 01:07: 50 03-01 01:06 :50 No 2mg 2 mg, Slow IV Push, Q4HPRN, Starting on 02/16/23 at 2006, Until [place] 02/28/23 at 2005, Routine, Pain (scale 7-10) [facility] OLANZapine (ZyPREXA) tablet 15 mg 02-16 22:00: 00 Yes 15mg 15 mg, Oral, QPM, First dose on 02/16/23 at 1700, Until Discontinu ed, Routine [facility] buPROPion XL (WELLBUTRIN XL) tablet 150 mg 02-16 14:00: 00 Yes 150mg 150 mg, Oral, DAILY, First dose on Sat02/16/23 at 0900, Until Discontinu ed [facility] enoxaparin (LOVENOX) injection 40 mg 02-16 14:00: 00 Yes 40mg 40 mg, Subcutaneo us, DAILY, First dose on 02/16/23 at 0900, Until Discontinu ed, Routine [facility] methocarbam oL (ROBAXIN) tablet 500 mg 02-16 06:04: 59 Yes 500mg 500 mg, Oral, Q6HPRN, Starting on 02/16/23 at 0104, Until Discontinu ed, Routine, Muscle Spasms [facility] ALPRAZolam (XANAX) tablet 2 mg 02-16 06:03: 54 Yes 2mg 2 mg, Oral, TIDPRN, Starting on 02/16/23 at 0103, Until Discontinu ed, Anxiety [facility] lactated ringers IV infusion 1,000 mL 02-16 03:15: 00 02-16 23:14 :00 No 1000mL at 100 mL/hr, 1,000 mL, IV Infusion, CONTINUOUS , Starting on Sat02/15/23 at 2215, Until 02/16/23 at 1814, Routine [facility] morpHINE (2 mg/mL) injection 2 mg 02-16 03:07: 02 02-17 01:08 :14 No 2mg 2 mg, Slow IV Push, Q4HPRN, Starting on Sat02/15/23 at 2207, Until 02/16/23 at 2008, Routine, Pain (scale 7-10) [facility] traMADoL (ULTRAM) tablet 50 mg 02-16 03:06: 59 02-18 03:05 :59 No 50mg 50 mg, Oral, Q8HPRN, Starting on Sat02/15/23 at 2206, Until Sat02/17/23 at 2205, Routine, Pain (scale 4-6) [facility] acetaminoph en (TYLENOL) tablet 1,000 mg 02-16 03:06: 50 Yes 1000mg 1,000 mg, Oral, Q6HPRN, Starting on Sat02/15/23 at 2206, Until Discontinu ed, Routine, Pain (scale 1-3), Temp > 38 C [facility] ALPRAZolam (XANAX) 1 mg tablet 02-16 01:09: 19 02-15 00:00 :00 No 1mg Take 1 tablet by mouth in the morning and 1 tablet in the evening. [facility] iopamidol (ISOVUE 370-500 mL) injection 80 mL 02-16 00:30: 00 02-16 00:30 :00 No [id number] 80mL 80 mL, Intravenou s, ONCE, 1 dose, On Sat02/15/23 at 1930, Routine [facility] lactated ringers IV infusion 1,000 mL 02-16 00:00: 00 02-16 03:07 :30 No [id number] 1000mL at 500 mL/hr, 1,000 mL, IV Infusion, CONTINUOUS , Starting on Sat02/15/23 at 1900, Until Sat02/15/23 at 2207, [facility] FENTanyl PF (SUBLIMAZE (PF)) injection 75 mcg 02-15 23:45: 00 02-15 23:13 :00 No [id number] 75ug 75 mcg, Slow IV Push, ONCE, 1 dose, On Sat02/15/23 at 1845, Routine [facility] dicyclomine (BENTYL) injection 20 mg 02-15 22:15: 00 02-15 21:46 :00 No [id number] 20mg 20 mg, Intramuscu lar, ONCE NOW, 1 dose, On Sat02/15/23 at 1715, Routine [facility] LORazepam (ATIVAN) injection 1 mg 02-15 21:45: 00 02-15 21:46 :00 No [id number] 1mg 1 mg, Slow IV Push, ONCE, 1 dose, On Sat02/15/23 at 1645, STAT [facility] ondansetron (ZOFRAN (PF)) injection 4 mg 02-15 21:45: 00 02-15 21:46 :00 No [id number] 4mg 4 mg, Slow IV Push, ONCE, 1 dose, On Sat02/15/23 at 1645, [facility] HYDROcodone -acetaminop hen (NORCO) 10-325 mg tablet 1 tablet 02-15 20:15: 00 02-15 19:52 :00 No [id number] 1{tbl} 1 tablet, Oral, ONCE, 1 dose, On Sat02/15/23 at 1515, Routine [facility] Melatonin 1 mg tablet 02-15 20:08: 23 02-15 00:00 :00 No 10mg Take 10 tablets by mouth every evening. [facility] trazodone HCl (DESYREL ORAL) 02-15 20:06: 33 02-15 00:00 :00 No 200mg Take 200 mg by mouth every evening. [facility] OLANZapine (ZYPREXA) 2.5 mg tablet 02-15 20:05: 48 02-15 00:00 :00 No 2.5mg Take 1 tablet by mouth in the morning and 1 tablet in the evening. [facility] hydrOXYzine (VISTARIL) 50 mg capsule 02-15 20:03: 04 02-15 00:00 :00 No 50mg Take 1 capsule by mouth every 4 (four) hours as needed for Itching. q 4-6 hours as needed [facility] dicyclomine (BENTYL) tablet 20 mg 02-15 19:30: 00 02-15 19:52 :00 No [id number] 20mg 20 mg, Oral, ONCE, 1 dose, On Sat02/15/23 at 1430, [facility] ibuprofen (IBU) tablet 800 mg 02-15 19:30: 00 02-15 19:52 :00 No [id number] 800mg 800 mg, Oral, ONCE, 1 dose, On Sat02/15/23 at 1430, [facility] losartan 50 mg tablet 02-15 13:44: 36 02-15 00:00 :00 No 50mg Take 1 tablet by mouth in the morning. [facility] [place]-3-DHA -EPA-Fish Oil (FISH OIL) 1,000 mg (120 mg-180 mg) Cap 02-15 13:44: 15 02-15 00:00 :00 No 1000mg Take 1,000 mg by mouth daily. [facility] methocarbam oL 750 mg tablet 02-15 13:43: 47 02-15 00:00 :00 No 750mg Take 750 mg by mouth 3 (three) times daily. [facility] FENTanyl PF (SUBLIMAZE (PF)) injection 50 mcg 01-10 00:45: 00 01-09 23:46 :00 No 50ug 50 mcg, Slow IV Push, ONCE, 1 dose, On Sat01/09/22 at 1945, Routine [facility] ketorolac (TORADOL) injection 30 mg 01-09 23:45: 00 01-09 22:48 :00 No 30mg 30 mg, Slow IV Push, ONCE, 1 dose, On Sat01/09/22 at 1845, Routine [facility] aspirin chewable tablet 243 mg 12-14 14:00: 00 Yes 243mg 243 mg, Oral, DAILY, First dose on Sat12/14/21 at 0900, Until Discontinu ed, Routine [facility] ketorolac (TORADOL) injection 15 mg 12-14 08:15: 00 12-14 07:11 :00 No 15mg 15 mg, Slow IV Push, ONCE, 1 dose, On Sat12/14/21 at 0315, RO[facility] morpHINE (4 mg/mL) injection 4 mg 12-14 05:45: 00 12-14 04:52 :00 No 4mg 4 mg, Slow IV Push, ONCE, 1 dose, On [place] 12/14/21 at 0045, STAT [facility] cefTRIAXone (ROCEPHIN) 1,000 mg in NaCl 0.9% (NS) 50 mL MINI-BAG 12-14 05:45: 00 12-14 05:30 :00 No 1000mg 1,000 mg, IV Piggyback, ONCE, 1 dose, On [place] 12/14/21 at 0045, Administer over 30 Minutes, 50 mL
Reas on for Anti-Infec tive: Documented Infection< br>Documen kaushik Infection Site: Urine
D uration of Therapy: Other (see Comments) [facility] NaCl 0.9% (NS) bolus infusion 1,000 mL 12-14 05:45: 00 12-14 07:20 :00 No 1000mL at 999 mL/hr, 1,000 mL, IV Infusion, ONCE, 1 dose, On [place] 12/14/21 [facility] 0045[facility]AN (PF)) [facility] 4 mg 12-14 04:45: 00 12-14 03:50 :00 No 4mg 4 mg, Slow IV Push, ONCE, 1 dose, On Sat12/13/21 at 2345, [facility] FENTanyl PF (SUBLIMAZE (PF)) injection 50 mcg 12-14 04:45: 00 12-14 03:50 :00 No 50ug 50 mcg, Slow IV Push, ONCE, 1 dose, On Sat12/13/21 at 2345, Routine [facility] ALPRAZolam (XANAX) 1 mg tablet 12-14 02:22: 13 Yes 1mg Take 1 mg by mouth 2 (two) times daily. [facility] naproxen 500 mg tablet 12-14 00:00: 00 02-15 00:00 :00 No [id number] 500mg Take 1 tablet by mouth 2 (two) times daily with meals. [facility] cefpodoxime 200 mg tablet 12-14 00:00: 00 12-22 04:59 :00 No [id number] 200mg Take 1 tablet by mouth 2 (two) times daily for 7 days. [facility] LORazepam (ATIVAN) injection 1 mg 11-12 05:00: 00 11-12 04:01 :00 No 1mg 1 mg, Slow IV Push, ONCE, 1 dose, On 11/12/21 at 0000, STAT [facility] ketorolac (TORADOL) injection 30 mg 11-12 03:30: 00 11-12 02:26 :00 No 30mg 30 mg, Slow IV Push, ONCE, 1 dose, On 11/11/21 at 2230, Routine
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 Restricted medication : APPLE WANG [facility] nitroglycer in (NITROSTAT) sublingual tablet 0.4 mg 11-12 03:30: 00 11-12 02:26 :00 No .4mg 0.4 mg, Sublingual , ONCE, 1 dose, On 11/11/21 at 2230, [facility] aspirin E.C. (ECOTRIN) tablet 325 mg 11-12 03:30: 00 11-12 02:25 :00 No 325mg 325 mg, Oral, ONCE, 1 dose, On 11/11/21 at 2230, STAT [facility] morpHINE (4 mg/mL) injection 4 mg 11-12 02:30: 00 11-12 01:40 :00 No 4mg 4 mg, Slow IV Push, ONCE, 1 dose, On 11/11/21 at 2130, STAT [facility] ondansetron (ZOFRAN (PF)) injection 4 mg 11-12 02:30: 00 11-12 01:40 :00 No 4mg 4 mg, Slow IV Push, ONCE, 1 dose, On 11/11/21 at 2130, [facility] NaCl 0.9% (NS) bolus infusion 1,000 mL 08 02:30: 00 11-12 02:30 :00 No 1000mL at 999 mL/hr, 1,000 mL, IV Infusion, ONCE, 1 dose, On 11/11/21 at 2130, [facility] hydrOXYzine 50 mg tablet 11-11 00:00: 00 04-08 00:00 :00 No [id number] 50mg Take 1 tablet by mouth every 8 (eight) hours as needed for Anxiety. [facility] ketorolac (TORADOL) injection 30 mg 09-12 05:45: 00 09-12 04:54 :00 No 30mg 30 mg, Slow IV Push, ONCE, 1 dose, On Sat09/11/21 at 2345, Routine
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 Restricted medication : APPLE WANG [facility] cefTRIAXone (ROCEPHIN) 1,000 mg in NaCl 0.9% (NS) 50 mL MINI-BAG 09-12 03:45: 00 09-12 03:41 :00 No 1000mg 1,000 mg, IV Piggyback, ONCE, 1 dose, On Sat09/11/21 at 2145, Administer over 30 Minutes, 50 mL
Reas on for Anti-Infec tive: Documented Infection< br>Documen kaushik Infection Site: Urine
D uration of Therapy: 7 days [facility] ondansetron (ZOFRAN (PF)) injection 4 mg 09-12 03:15: 00 09-12 02:39 :00 No 4mg 4 mg, Slow IV Push, ONCE, 1 dose, On Sat09/11/21 at 2115, [facility] morpHINE injection 4 mg 08 03:15: 00 09-12 02:39 :00 No 4mg 4 mg, Slow IV Push, ONCE, 1 dose, On Sat09/11/21 at 2115, STAT [facility] iopamidol (ISOVUE 370-500 mL) injection 120 mL 09-12 02:45: 00 09-12 03:00 :00 No [id number] 120mL 120 mL, Intravenou s, ONCE, 1 dose, On Sat09/11/21 at 2100, Routine [facility] sodium chloride (NS) injection 5 mL 09-12 01:33: 26 Yes 5mL 5 mL, Intravenou s, PRN, Starting on Sat09/11/21 at 1933, Until Discontinu ed, Routine, IV line flushing [facility] ibuprofen 600 mg tablet 09-11 00:00: 00 02-15 00:00 :00 No [id number] 600mg Take 1 tablet by mouth every 6 (six) hours as needed for Pain (scale 4-6). [facility] cefdinir 300 mg capsule 09-11 00:00: 00 09-19 04:59 :00 No [id number] 300mg Take 1 capsule by mouth 2 (two) times daily for 7 days. [facility] HYDROcodone -acetaminop hen (NORCO) 10-325 mg tablet 1 tablet 08-15 09:00: 00 08-15 07:59 :00 No 1{tbl} 1 tablet, Oral, ONCE, 1 dose, On Sat08/15/21 at 0300, Routine [facility] FENTanyl PF (SUBLIMAZE (PF)) injection 75 mcg 08-15 07:30: 00 08-15 06:42 :00 No 75ug 75 mcg, Intramuscu lar, ONCE, 1 dose, On Sat08/15/21 at 0130, Routine [facility] methocarbam oL (ROBAXIN) 500 mg tablet 08-15 00:00: 00 Yes [id number] 500mg Take 1 tablet by mouth every 6 (six) hours as needed for Pain (scale 7-10) (MUSCLE SPASM). [facility] traMADoL (ULTRAM) 50 mg tablet 08-15 00:00: 00 11-01 00:00 :00 No [id number] 50mg Take 1 tablet by mouth every 6 (six) hours as needed for Pain (scale 7-10). Indication s: acute pain [facility] Nitrofurant oin&Nit. Macrocryst (MACROBID) 100 mg capsule 08-15 00:00: 00 02-15 00:00 :00 No [id number] 100mg Take 1 capsule by mouth 2 (two) times daily. [facility] morpHINE injection 4 mg 2020-07 08:30: 00 05-28 07:50 :00 No 4mg 4 mg, Slow IV Push, ONCE, 1 dose, On 05/28/21 at 0230, RO[facility] maalox:diph enhydrAMINE :lidocaine 2 % viscous 1:1:1 ([facility]) oral suspension 15 mL 2020-07 08:00: 00 05-28 07:04 :00 No 15mL 15 mL, Oral, ONCE, 1 dose, On 05/28/21 at 0200, Routine [facility] FENTanyl PF (SUBLIMAZE (PF)) injection 50 mcg 2020-07 07:00: 00 05-28 06:02 :00 No 50ug 50 mcg, Slow IV Push, ONCE, 1 dose, On 05/28/21 at 0100, STAT [facility] famotidine (PEPCID (PF)) injection 20 mg 2020-07 07:00: 00 05-28 06:01 :00 No 20mg 20 mg, Slow IV Push, ONCE, 1 dose, On 05/28/21 at 0100, [facility] famotidine 20 mg tablet 2020-07 00:00: 00 06-13 05:59 :00 No [id number] 20mg Take 1 tablet by mouth 2 (two) times daily for 15 days. [facility] escitalopra m oxalate (LEXAPRO) tablet 10 mg 2020-07 0-03 02:00: 00 Yes 10mg 10 mg, Oral, QHS, First dose on 04/08/21 at 2100, Until Discontinu ed, Routine [facility] aspirin 81 mg chewable tablet 2020-07 00:00: 00 05-10 04:59 :00 No [id number] 81mg Take 1 tablet by mouth daily for 30 days. [facility] traZODone (DESYREL) tablet 200 mg 2020-07 22:00: 00 Yes 200mg 200 mg, Oral, QPM, First dose on 04/08/21 at 1700, Until Discontinu ed [facility] topiramate (TOPAMAX) tablet 200 mg 2020-07 22:00: 00 Yes 200mg 200 mg, Oral, QPM, First dose on 04/08/21 at 1700, Until Discontinu ed, Routine
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 [facility] [place]-3-DHA -EPA-Fish Oil (FISH OIL) 1,000 mg (120 mg-180 mg) Cap 2020-07 17:45: 33 Yes 1000mg Take 1,000 mg by mouth daily. [facility] hydrOXYzine (VISTARIL) 50 mg capsule 2020-07 17:45: 33 Yes 50mg Take 50 mg by mouth every 4 (four) hours as needed for Itching. q 4-6 hours as needed [facility] losartan 50 mg tablet 2020-07 17:45: 33 Yes 50mg Take 50 mg by mouth daily. [facility] trazodone HCl (DESYREL ORAL) 2020-07 17:45: 33 Yes 200mg Take 200 mg by mouth every evening. [facility] escitalopra m oxalate (LEXAPRO) 5 mg tablet 2020-07 17:45: 33 Yes 10mg Take 10 mg by mouth at bedtime. [facility] Melatonin 1 mg tablet 2020-07 17:45: 33 Yes 10mg Take 10 mg by mouth every evening. [facility] topiramate (TOPAMAX) 200 mg tablet 2020-07 17:45: 33 Yes 200mg Take 200 mg by mouth every evening. [facility] bupropion HCl (WELLBUTRIN ORAL) 2020-07 17:45: 33 Yes 150mg Take 150 mg by mouth every morning. [facility] OLANZapine (ZYPREXA) 15 mg tablet 2020-07 17:45: 33 Yes 15mg Take 15 mg by mouth every evening. [facility] OLANZapine (ZYPREXA) 2.5 mg tablet 2020-07 17:45: 33 Yes 2.5mg Take 2.5 mg by mouth 2 (two) times daily. [facility] furosemide (LASIX) injection 20 mg 2020-07 14:30: 00 Yes 20mg 20 mg, Slow IV Push, Q12H, First dose on 04/08/21 at 0930, Until Discontinu ed, Routine [facility] losartan (COZAAR) tablet 50 mg 2020-07 14:00: 00 Yes 50mg 50 mg, Oral, DAILY, First dose on 04/08/21 at 0900, Until Discontinu ed, Routine [facility] buPROPion XL (WELLBUTRIN XL) tablet 150 mg 2020-07 14:00: 00 Yes 150mg 150 mg, Oral, DAILY, First dose on 04/08/21 at 0900, Until Discontinu ed [facility] aspirin chewable tablet 81 mg 2020-07 14:00: 00 Yes 81mg 81 mg, Oral, DAILY, First dose on 10/2/21 at 0900, Until Discontinu ed, Routine [facility] enoxaparin (LOVENOX) injection 40 mg 2020-07 14:00: 00 Yes 40mg 40 mg, Subcutaneo us, DAILY, First dose on Sat04/08/21 at 0900, Until Discontinu ed, Routine [facility] OLANZapine (ZyPREXA) tablet 2.5 mg 2020-07 13:00: 00 Yes 2.5mg 2.5 mg, Oral, BID, First dose on Sat04/08/21 at 0800, Until Discontinu ed, Routine [facility] methocarbam oL (ROBAXIN) tablet 750 mg 2020-07 13:00: 00 Yes 750mg 750 mg, Oral, TID, First dose on Sat04/08/21 at 0800, Until Discontinu ed, Routine [facility] LORazepam (ATIVAN) injection 0.5 mg 2020-07 04:07: 43 Yes .5mg 0.5 mg, Slow IV Push, PRN, 2 doses, Starting on Sat04/07/21 at 2307, Until Discontinu ed, Routine, Anxiety [facility] hydrOXYzine (ATARAX) tablet 50 mg 2020-07 02:51: 23 Yes 50mg 50 mg, Oral, Q4HPRN, Starting on Sat04/07/21 at 2151, Until Discontinu ed, Itching [facility] LORazepam (ATIVAN) tablet 0.5 mg 2020-07 02:05: 29 Yes .5mg 0.5 mg, Oral, PRN, 2 doses, Starting on Sat04/07/21 at 2105, Until Discontinu ed, Routine, Anxiety [facility] morpHINE injection 4 mg 2020-07 00:00: 00 04-07 22:58 :00 No 4mg 4 mg, Slow IV Push, ONCE, 1 dose, On Sat04/07/21 at 1900, STAT [facility] ondansetron (ZOFRAN (PF)) injection 4 mg 2020-07 00:00: 00 04-07 22:56 :00 No 4mg 4 mg, Slow IV Push, ONCE, 1 dose, On Sat04/07/21 at 1900, [place] [facility] morpHINE injection 4 mg 2020-07 23:58: 03 04-08 23:57 :03 No 4mg 4 mg, Slow IV Push, Q4HPRN, Starting on Sat04/07/21 at 1858, Until 04/08/21 at 1857, Routine, Pain (scale 7-10) [facility] HYDROcodone -acetaminop hen (NORCO 5) 5-325 mg tablet 1 tablet 2020-07 23:58: 00 04-09 23:57 :00 No 1{tbl} 1 tablet, Oral, Q6HPRN, Starting on Sat04/07/21 at 1858, Until 04/09/21 at 1857, Routine, Pain (scale 4-6) [facility] acetaminoph en (TYLENOL) tablet 650 mg 2020-07 23:57: 57 Yes 650mg 650 mg, Oral, Q6HPRN, Starting on Sat04/07/21 at 1857, Until Discontinu ed, Routine, Pain (scale 1-3) [facility] aspirin tablet 325 mg 2020-07 23:00: 00 04-07 21:56 :00 No 325mg 325 mg, Oral, ONCE, 1 dose, On Sat04/07/21 at 1800, STAT [facility] nitroglycer in (NITROSTAT) sublingual tablet 0.4 mg 2020-07 21:51: 01 04-07 22:46 :00 No .4mg 0.4 mg, Sublingual , Q5MIN PRN, 3 doses, Starting on Sat04/07/21 at 1651, Until Discontinu ed, ROSELYN, Chest pain [facility] fluconazole (DIFLUCAN) tablet 150 mg 01-12 14:00: 00 Yes 150mg 150 mg, Oral, DAILY, First dose on [place] 01/12/21 at 0900, Until Discontinu ed, ROSELYN
Re ason for Anti-Infec tive: Empiric Therapy for Suspected Infection< br>Empiric Therapy Site: HEENT
D uration of therapy: 72 hours [facility] cefTRIAXone (ROCEPHIN) 1,000 mg in NaCl 0.9% (NS) 50 mL MINI-BAG 01-12 10:15: 00 01-12 09:49 :00 No 1000mg 1,000 mg, IV Piggyback, ONCE, 1 dose, [place] 01/12/21 at 0515, 50 mL
Reas on for Anti-Infec tive: Empiric Therapy for Suspected Infection< br>Empiric Therapy Site: Urine
D uration of therapy: 72 hours [facility] hydrOXYzine (ATARAX) tablet 25 mg 01-12 10:15: 00 01-12 09:18 :00 No 25mg 25 mg, Oral, ONCE, 1 dose, [place] 01/12/21 at 0515, [facility] HYDROcodone -acetaminop hen (NORCO) 10-325 mg tablet 1 tablet 01-12 10:15: 00 01-12 09:18 :00 No 1{tbl} 1 tablet, Oral, ONCE, 1 dose, [place] 01/12/21 at 0515, Routine [facility] maalox:diph enhydrAMINE :lidocaine2 %viscous 1:1:1: suspension (COMPOUNDED ) 01-12 09:30: 00 01-12 08:25 :00 No 15mL 15 mL, Oral, ONCE, 1 dose, [place] 01/12/21 at 0430, Routine [facility] cephALEXin (KEFLEX) 500 mg capsule 01-12 00:00: 00 04-07 00:00 :00 No [id number] 500mg Take 1 capsule by mouth 3 (three) times daily. [facility] HYDROcodone -acetaminop hen (NORCO 5) 5-325 mg tablet 1 tablet 12-11 02:00: 00 12-11 01:29 :00 No 1{tbl} 1 tablet, Oral, ONCE, 1 dose, 12/10/20 at 2100, [facility] LORazepam (ATIVAN) injection 1 mg 12-11 00:30: 00 12-10 23:36 :00 No 1mg 1 mg, Slow IV Push, ONCE, 1 dose, 12/10/20 at 1930, STAT [facility] ketorolac (TORADOL) injection 30 mg 12-11 00:30: 00 12-10 23:36 :00 No 30mg 30 mg, Slow IV Push, ONCE, 1 dose, 12/10/20 at 1930, ROSELYN
Fa culty member approving Restricted medication : EMERGENCY ROOM, [facility] ondansetron (ZOFRAN (PF)) injection 4 mg 12-10 23:45: 00 12-10 22:46 :00 No 4mg 4 mg, Slow IV Push, ONCE, 1 dose, 12/10/20 at 1845, [facility] NaCl 0.9% (NS) bolus infusion 2,000 mL 12-10 22:45: 00 12-11 01:29 :00 No 2000mL at 999 mL/hr, 2,000 mL, IV Infusion, ONCE, 1 dose, 12/10/20 at 1745, [facility] proMETHazin e 25 mg tablet 12-10 00:00: 00 04-07 00:00 :00 No [id number] 12.5mg Take 0.5 tablets by mouth every 6 (six) hours as needed for N/V unresponsi ve to Ondansetro n. [facility] morpHINE injection 4 mg 12-04 22:30: 00 12-04 21:37 :00 No 4mg 4 mg, Slow IV Push, ONCE, 1 dose, 12/04/20 at 1730, STAT [facility] losartan 50 mg tablet 12-04 22:03: 53 Yes 50mg Take 50 mg by mouth daily. [facility] LORazepam (ATIVAN) tablet 1 mg 12-04 21:45: 00 12-04 20:44 :00 No 1mg 1 mg, Oral, ONCE, 1 dose, [place] 12/04/20 at 1645, [facility] ondansetron (ZOFRAN (PF)) injection 4 mg 12-04 21:15: 00 12-04 20:22 :00 No 4mg 4 mg, Slow IV Push, ONCE, 1 dose, [place] 12/04/20 at 1615, [facility] morpHINE injection 4 mg 12-04 21:15: 00 12-04 20:21 :00 No 4mg 4 mg, Slow IV Push, ONCE, 1 dose, [place] 12/04/20 at 1615, [facility] ALPRAZolam (XANAX) 2 mg tablet 11-04 04:24: 19 11-03 00:00 :00 No 2mg Take 2 mg by mouth at bedtime. [facility] LORazepam (ATIVAN) injection 1 mg 11-04 04:00: 00 11-04 02:57 :00 No 1mg 1 mg, Slow IV Push, ONCE, 1 dose, [facility] 11/03/20 at 2300, [facility] LORazepam (ATIVAN) tablet 1 mg 11-04 04:00: 00 11-04 02:57 :00 No 1mg 1 mg, Oral, ONCE, 1 dose, [facility] 11/03/20 at 2300, [facility] clonazePAM 0.5 mg tablet 11-01 00:00: 00 04-07 00:00 :00 No .5mg Take 0.5 mg by mouth. [facility] SERTraline 100 mg tablet 11-01 00:00: 00 04-07 00:00 :00 No 100mg Take 100 mg by mouth. [facility] busPIRone 10 mg tablet 10-18 00:00: 00 04-07 00:00 :00 No 10mg Take 10 mg by mouth. [facility] Ciprofloxac in/Dexameth asone (Ciprodex 0.3%-0.1% Otic*) 1 Ea SUSP Ciprofloxac in/Dexameth asone (Ciprodex 0.3%-0.1% Otic*) 1 Ea SUSP 09-19 13:53: 00 09-30 00:00 :00 [facility]upro[facility] (IBU) tablet 800 mg 09-17 16:55: 00 09-17 16:57 :00 No 800mg 800 mg, Oral, ONCE, 1 dose, 09/17/20 at 1100, [facility] benzonatate 100 mg capsule 09-17 00:00: 00 04-07 00:00 :00 No [id number] 100mg Take 1 capsule by mouth 3 (three) times daily as needed for Cough. [facility] amoxicillin 500 mg capsule 09-17 00:00: 00 09-28 04:59 :00 No [id number] 500mg Take 1 capsule by mouth 3 (three) times daily for 10 days. [facility] HYDROcodone -acetaminop hen (NORCO) 10-325 mg tablet 1 tablet 09-07 07:45: 00 09-07 07:09 :00 No 1{tbl} 1 tablet, Oral, ONCE, 1 dose, 09/07/20 at 0145, Routine [facility] ondansetron (ZOFRAN-ODT ) disintegrat ing tablet 4 mg 09-07 07:15: 00 09-07 07:15 :00 No 4mg 4 mg, Oral, ONCE, 1 dose, 09/07/20 at 0130, Routine [facility] ibuprofen 800 mg tablet 09-07 00:00: 00 Yes [id number] 800mg Take 1 tablet by mouth every 8 (eight) hours as needed for Pain (scale 4-6). [facility] ketorolac (TORADOL) injection 30 mg 08-28 10:45: 00 08-28 09:48 :00 No 30mg 30 mg, Slow IV Push, ONCE, 1 dose, 08/28/20 at 0445, Routine
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 Restricted medication : BOB GARCIA [facility] ondansetron (ZOFRAN (PF)) injection 4 mg 08-28 10:00: 00 08-28 09:06 :00 No 4mg 4 mg, Slow IV Push, ONCE, 1 dose, 08/28/20 at 0400, [facility] FENTanyl PF (SUBLIMAZE (PF)) injection 50 mcg 08-28 10:00: 00 08-28 09:07 :00 No 50ug 50 mcg, Slow IV Push, ONCE, 1 dose, 08/28/20 at 0400, Routine [facility] maalox:diph enhydrAMINE :lidocaine 2 % viscous 1:1:1 ([facility]) oral suspension 15 mL 08-28 10:00: 00 08-28 09:07 :00 No 15mL 15 mL, Oral, ONCE, 1 dose, 08/28/20 at 0400, Routine [facility] iohexol (OMNIPAQUE 350 BULK-100 mL) injection 120 mL 08-28 09:30: 00 08-28 09:11 :00 No 120mL 120 mL, Intravenou s, ONCE, 1 dose, 08/28/20 at 0330, Routine [facility] dicyclomine 20 mg tablet 08-28 00:00: 00 04-07 00:00 :00 No [id number] 20mg Take 1 tablet by mouth every 6 (six) hours as needed for Abdominal pain. [facility] ondansetron (ZOFRAN) 4 mg tablet 08-28 00:00: 00 09-17 00:00 :00 No [id number] 4mg Take 1 tablet by mouth every 8 (eight) hours as needed for Nausea and Vomiting (N/V). [facility] FENTanyl PF (SUBLIMAZE (PF)) injection 25 mcg 08-14 19:00: 08-14 18:09 :00 No 25ug 25 mcg, Slow IV Push, ONCE, 1 dose, 08/14/20 at 1300, STAT [facility] ondansetron (ZOFRAN (PF)) injection 4 mg 08-14 19:00: 00 08-14 18:10 :00 No 4mg 4 mg, Slow IV Push, ONCE, 1 dose, 08/14/20 at 1300, [facility] ketorolac (TORADOL) injection 15 mg 08-14 19:00: 08-14 18:09 :00 No 15mg 15 mg, Slow IV Push, ONCE, 1 dose, 08/14/20 at 1300, ROSELYN
Fa culty member approving Restricted medication : BE[facility] TAYLOR [facility] piperacilli n-tazobacta m (ZOSYN) 3.375 g in NaCl 0.9% (NS) 100 mL MINI-BAG 08-14 19:00: 08-14 18:38 :00 No 3.375g 3.375 g, IV Piggyback, ONCE, 1 dose, 08/14/20 at 1300, 100 mL
Reas on for Anti-Infec tive: Documented Infection< br>Documen kaushik Infection Site: Urine
D uration of Therapy: Other (see Comments) [facility] NaCl 0.9% (NS) bolus infusion 1,000 mL 08-14 19:00: 00 08-14 19:00 :00 No 1000mL at 999 mL/hr, 1,000 mL, IV Infusion, ONCE, 1 dose, 08/14/20 at 1300, STAT [facility] guaiFENesin 100 mg/5 mL solution 08-14 00:00: 00 04-07 00:00 :00 No [id number] 100mg Take 5 mL by mouth every 4 (four) hours. [facility] ondansetron 4 mg disintegrat ing tablet 08-14 00:00: 00 09-17 00:00 :00 No [id number] 4mg Take 1 tablet by mouth every 8 (eight) hours as needed for Nausea and Vomiting (N/V). [facility] ibuprofen 600 mg tablet 08-14 00:00: 00 09-17 00:00 :00 No [id number] 600mg Take 1 tablet by mouth every 6 (six) hours as needed for Pain (scale 4-6). [facility] amoxicillin -clavulanat e 875-125 mg per tablet 08-14 00:00: 00 08-25 05:59 :00 No [id number] 1{tbl} Take 1 tablet by mouth 2 (two) times daily for 10 days. [facility] fluconazole (DIFLUCAN) tablet 150 mg 08-11 15:00: 00 Yes 150mg 150 mg, Oral, DAILY, First dose on [place] 08/11/20 at 0900, Until Discontinu ed, ROSELYN
Re ason for Anti-Infec tive: Documented Infection< br>Documen kaushik Infection Site: Urine
D uration of Therapy: Other (see Comments) [facility] HYDROcodone -acetaminop hen (NORCO) 10-325 mg tablet 1 tablet 08-11 05:30: 00 08-11 05:08 :00 No 1{tbl} 1 tablet, Oral, ONCE NOW, 1 dose, Sat08/10/20 at 2330, Routine [facility] FENTanyl PF (SUBLIMAZE (PF)) injection 25 mcg 08-11 04:30: 00 08-11 03:19 :00 No 25ug 25 mcg, Slow IV Push, ONCE, 1 dose, Sat08/10/20 at 2230, STAT [facility] ondansetron (ZOFRAN (PF)) injection 4 mg 08-11 04:15: 00 08-11 03:19 :00 No 4mg 4 mg, Slow IV Push, ONCE, 1 dose, Sat08/10/20 at 2215, [facility] NaCl 0.9% (NS) bolus infusion 1,000 mL 08-11 01:45: 00 08-11 03:45 :00 No 1000mL at 999 mL/hr, 1,000 mL, IV Infusion, ONCE, 1 dose, Sat08/10/20 at 1945, STAT [facility] ketorolac (TORADOL) injection 30 mg 08-11 01:45: 00 08-11 02:31 :00 No 30mg 30 mg, Slow IV Push, ONCE, 1 dose, Sat08/10/20 at 1945, ROSELYN
Fa culty member approving Restricted medication : [facility] traMADoL (ULTRAM) 50 mg tablet 08-10 00:00: 00 09-17 00:00 :00 No [id number] 50mg Take 1 tablet by mouth every 6 (six) hours as needed for Pain (scale 7-10). Indication s: acute pain [facility] ibuprofen 800 mg tablet 08-07 00:00: 00 09-17 00:00 :00 No [id number] 800mg Take 1 tablet by mouth every 8 (eight) hours. [facility] amoxicillin 500 mg capsule 08-07 00:00: 00 09-17 00:00 :00 No [id number] 500mg Take 1 capsule by mouth 3 (three) times daily. [facility] traMADoL 50 mg tablet 08-07 00:00: 00 09-17 00:00 :00 No [id number] 50mg Take 1 tablet by mouth every 6 (six) hours as needed for Pain (scale 4-6). Indication s: acute pain [facility] LORazepam (ATIVAN) tablet 1 mg 2019-07 03:15: 00 07-01 02:21 :00 No 1mg 1 mg, Oral, ONCE, 1 dose, [facility] 06/30/20 at 2115, [facility] FENTanyl PF (SUBLIMAZE (PF)) injection 50 mcg 2019-07 02:30: 00 07-01 01:39 :00 No 50ug 50 mcg, Slow IV Push, ONCE, 1 dose, [place] 06/30/20 at 2030, Routine [facility] ondansetron (ZOFRAN-ODT ) disintegrat ing tablet 4 mg 2019-07 01:15: 07-01 00:52 :00 No 4mg 4 mg, Oral, ONCE, 1 dose, [place] 06/30/20 at 1915, Routine [facility] ketorolac (TORADOL) injection 30 mg 2019-07 01:15: 00 07-01 00:52 :00 No 30mg 30 mg, Slow IV Push, ONCE, 1 dose, [place] 06/30/20 at 1915, [facility]
Fa culty member approving Restricted medication : ABDIAS ROBERTSON [facility] albuterol 90 mcg/actuati on inhaler 2019-07 00:00: 04-07 00:00 :00 No [id number] 2{puff} Inhale 2 Puffs every 4 (four) hours as needed for Wheezing or Shortness of Breath. [facility] hydrOXYzine 25 mg tablet 2019-07 00:00: 00 09-17 00:00 :00 No [id number] 25mg Take 1 tablet by mouth every 6 (six) hours as needed for Anxiety. [facility] naproxen sodium (ANAPROX DS) 550 mg tablet 2019-07 00:00: 04-07 00:00 :00 No [id number] 550mg Take 1 tablet by mouth 2 (two) times daily with meals. [facility] methylPREDN ISolone (MEDROL, HEENA,) 4 mg tablets 2019-07 00:00: 00 09-17 00:00 :00 No [id number] Take by mouth SEE-INSTRU CTIONS. follow package directions [facility] methocarbam oL 500 mg tablet 2019-07 00:00: 00 07-04 05:59 :00 No [id number] 500mg Take 1 tablet by mouth 3 (three) times daily for 5 days. [facility] proMETHazin e (PHENERGAN) tablet 25 mg 2019-07 04:45: 00 06-13 03:37 :00 No 25mg 25 mg, Oral, ONCE, 1 dose, [facility]12[facility]20 [facility] 2245[facility] (PF[facility] 4 mg 2019-07 03:00: 00 06-13 01:59 :00 No 4mg 4 mg, Slow IV Push, ONCE, 1 dose, 06/12/20 at 2100, [facility] ketorolac (TORADOL) injection 15 mg 2019-07 03:00: 00 06-13 01:58 :00 No 15mg 15 mg, Intramuscu lar, ONCE, 1 dose, 06/12/20 at 2100, [facility]
Fa culty member approving Restricted medication : LEEANNE WISE [facility] morpHINE injection 4 mg 2019-07 01:30: 00 06-13 00:41 :00 No 4mg 4 mg, Slow IV Push, ONCE, 1 dose, 06/12/20 at 1930, STAT [facility] ondansetron (ZOFRAN (PF)) injection 4 mg 2019-07 00:45: 00 06-13 00:41 :00 No 4mg 4 mg, Slow IV Push, ONCE, 1 dose, 06/12/20 at 1845, [facility] NaCl 0.9% (NS) bolus infusion 1,000 mL 2019-07 23:45: 00 06-13 03:54 :00 No 1000mL at 999 mL/hr, 1,000 mL, IV Infusion, ONCE, 1 dose, 06/12/20 at 1745, [facility] dicyclomine 20 mg tablet 2019-07 00:00: 00 04-07 00:00 :00 No [id number] 20mg Take 1 tablet by mouth 4 (four) times daily as needed for Abdominal pain. [facility] proMETHazin e 25 mg tablet 2019-07 00:00: 00 09-17 00:00 :00 No [id number] 25mg Take 1 tablet by mouth every 6 (six) hours as needed for Nausea and Vomiting (N/V). [facility] famotidine 20 mg tablet 2019-0706 00:00: 00 06-27 05:59 :00 No [id number] 20mg Take 1 tablet by mouth at bedtime for 14 days. [facility] haloperidol lactate (HALDOL) injection 2.5 mg 2019-07 01:00: 00 05-16 23:51 :00 No 2.5mg 2.5 mg, Intravenou s, ONCE, 1 dose, [facility] 05/16/20 at 1900, STAT [facility] NaCl 0.9% (NS) bolus infusion 1,000 mL 2019-07 23:45: 00 05-17 00:54 :00 No 1000mL at 999 mL/hr, 1,000 mL, IV Infusion, ONCE, 1 dose, [facility] 05/16/20 at 1745, [facility] proMETHazin e (PHENERGAN) 25 mg suppository 2019-07 00:00: 00 Yes [id number] 25mg Insert 1 Suppositor y into rectum every 4 (four) hours as needed for Nausea and Vomiting (N/V). [facility] ondansetron (ZOFRAN (PF)) injection 4 mg 2019-07 07:30: 00 05-15 06:26 :00 No 4mg 4 mg, Slow IV Push, ONCE, 1 dose, [place] 05/15/20 at 0130, [facility] iohexol (OMNIPAQUE 350 BULK-100 mL) injection 120 mL 2019-07 07:00: 00 05-15 06:52 :00 No 120mL 120 mL, Intravenou s, ONCE, 1 dose, [place] 05/15/20 at 0100, Routine [facility] ondansetron (ZOFRAN (PF)) injection 4 mg 2019-07 06:30: 00 05-15 05:52 :00 No 4mg 4 mg, Slow IV Push, ONCE, 1 dose, 05/15/20 at 0030, [facility] ALPRAZolam (XANAX) 2 mg tablet 2019-07 05:30: 59 Yes 2mg Take 2 mg by mouth at bedtime. [facility] zolpidem 5 mg tablet 6-15 00:00: 00 04-07 00:00 :00 No 5mg Take 5 mg by mouth. [facility] Immunizations Ordered Immunization Name Filled Immunization Name Date Status Comments Source Covid-19 Vaccine Moderna (Spikevax), Mrna-lnp, Zackery Protein, Pf Unknown Completed [facility] - External Covid-19 Vaccine Moderna (Spikevax), Mrna-lnp, Zackery Protein, Pf Unknown Completed [facility] - External Covid-19 Vaccine Moderna (Spikevax), Mrna-lnp, Zackery Protein, Pf Unknown Completed [facility] - External Covid-19 Vaccine Moderna (Spikevax), Mrna-lnp, Zackery Protein, Pf [facility] Moderna (Spikevax), Mrna-lnp, Zackery Protein, Pf Unknown Completed [facility] - External Covid-19 Vaccine Moderna (Spikevax), Mrna-lnp, Zackery Protein, Pf Unknown Completed [facility] - External Covid-19 Vaccine Moderna (Spikevax), Mrna-lnp, Zackery Protein, Pf Unknown [facility] Vaccine Moderna (Spikevax), Mrna-lnp, Zackery Protein, Pf Unknown Completed [facility] - External Covid-19 Vaccine Moderna (Spikevax), Mrna-lnp, Zackery Protein, Pf Unknown Completed [facility] - External Covid-19 Vaccine Moderna (Spikevax), Mrna-lnp, Zackery Protein, Pf Unknown Completed [facility] - External Covid-19 Vaccine Moderna (Spikevax), Mrna-lnp, Zackery Protein, Pf Unknown Completed [facility] - External Vital Signs Vital Name Observation Time Observation Value Comments S donnie Systolic blood pressure 2024-11-27 16:12:00 99 mm[Hg] [facility] Diastolic blood pressure 2024-11-27 16:12:00 54 mm[Hg] [facility] Heart rate 2024-11-27 16:12:00 60 /min [facility] Body temperature 2024-11-27 16:12:00 36.28 Latanya [facility] Respiratory rate 2024-11-27 16:12:00 18 /min [facility] Oxygen saturation in Arterial blood by Pulse oximetry 2024-11-27 16:12:00 96 /min [facility] Body height 2024-11-27 03:49:00 157.5 cm [facility] Body weight 2024-11-27 03:49:00 108.41 kg [facility] BMI 2024-11-27 03:49:00 43.71 kg/m2 [facility] Systolic blood pressure 2024-11-15 01:43:00 165 mm[Hg] [facility] Diastolic blood pressure 2024-11-15 01:43:00 115 mm[Hg] [facility] Heart rate 2024-11-15 01:43:00 87 /min [facility] Body temperature 2024-11-15 01:43:00 36.72 Latanya [facility] Respiratory rate 2024-11-15 01:43:00 17 /min [facility] Body height 2024-11-15 01:43:00 157.5 cm [facility] Body weight 2024-11-15 01:43:00 108.41 kg [facility] BMI 2024-11-15 01:43:00 43.71 kg/m2 [facility] Oxygen saturation in Arterial blood by Pulse oximetry 2024-11-15 01:43:00 98 /min [facility] Body temperature 2024-11-11 05:30:00 37.17 Latanya [facility] Systolic blood pressure 2024-11-11 05:02:00 141 mm[Hg] [facility] Diastolic blood pressure 2024-11-11 05:02:00 100 mm[Hg] [facility] Heart rate 2024-11-11 05:02:00 76 /min [facility] Respiratory rate 2024-11-11 05:02:00 21 /min [facility] Oxygen saturation in Arterial blood by Pulse oximetry 2024-11-11 05:02:00 96 /min [facility] Body height 2024-11-11 00:53:00 157.5 cm [facility] Body weight 2024-11-11 00:53:00 108.41 kg [facility] BMI 2024-11-11 00:53:00 43.71 kg/m2 [facility] Systolic blood pressure 2024-11-04 19:00:00 134 mm[Hg] [facility] Diastolic blood pressure 2024-11-04 19:00:00 85 mm[Hg] [facility] Heart rate 2024-11-04 19:00:00 86 /min [facility] Body temperature 2024-11-04 19:00:00 36.94 Latanya [facility] Oxygen saturation in Arterial blood by Pulse oximetry 2024-11-04 19:00:00 98 /min [facility] Respiratory rate 2024-11-04 08:24:00 16 /min [facility] Body height 2024-11-03 17:28:00 157.5 cm [facility] Body weight 2024-11-03 17:28:00 108.7 kg [facility] BMI 2024-11-03 17:28:00 43.83 kg/m2 [facility] Systolic blood pressure 2024-11-03 21:17:00 123 mm[Hg] [facility] Diastolic blood pressure 2024-11-03 21:17:00 74 mm[Hg] [facility] Heart rate 2024-11-03 21:17:00 72 /min [facility] Body temperature 2024-11-03 21:17:00 37.11 Latanya [facility] Respiratory rate 2024-11-03 21:17:00 18 /min [facility] Oxygen saturation in Arterial blood by Pulse oximetry 2024-11-03 21:17:00 98 /min [facility] Body height 2024-11-03 17:28:00 157.5 cm [facility] Body weight 2024-11-03 17:28:00 108.7 kg [facility] BMI 2024-11-03 17:28:00 43.83 kg/m2 [facility] Heart rate 2024-10-24 04:50:00 77 /min [facility] Body temperature 2024-10-24 04:50:00 36.83 Latanya [facility] Respiratory rate 2024-10-24 04:50:00 21 /min [facility] Oxygen saturation in Arterial blood by Pulse oximetry 2024-10-24 04:50:00 96 /min [facility] Systolic blood pressure 2024-10-24 04:15:00 146 mm[Hg] [facility] Diastolic blood pressure 2024-10-24 04:15:00 90 mm[Hg] [facility] Body height 2024-10-24 01:16:00 157.5 cm [facility] Body weight 2024-10-24 01:16:00 108.863 kg [facility] BMI 2024-10-24 01:16:00 43.90 kg/m2 [facility] Systolic blood pressure 2024-10-23 15:10:00 132 mm[Hg] [facility] - External Diastolic blood pressure 2024-10-23 15:10:00 82 mm[Hg] [facility] - External Heart rate 2024-10-23 15:10:00 79 /min [facility] - External Body temperature 2024-10-23 15:10:00 36.72 Latanya [facility] - External Respiratory rate 2024-10-23 15:10:00 18 /min [facility] Ariasybold - External Body height 2024-10-23 15:10:00 157.5 cm [facility] Ariasybold - External Body weight 2024-10-23 15:10:00 97.433 kg [facility] Ariasybold - External BMI 2024-10-23 15:10:00 39.29 kg/m2 [facility] - External Oxygen saturation in Arterial blood by Pulse oximetry 2024-10-23 15:10:00 97 /min [facility] Sey[facility] - External Systolic blood pressure 2024-10-13 07:35:00 135 mm[Hg] [facility] Diastolic blood pressure 2024-10-13 07:35:00 87 mm[Hg] [facility] Heart rate 2024-10-13 07:35:00 86 /min [facility] Body temperature 2024-10-13 07:35:00 36.72 Latanya [facility] Respiratory rate 2024-10-13 07:35:00 19 /min [facility] Oxygen saturation in Arterial blood by Pulse oximetry 2024-10-13 07:35:00 98 /min [facility] Body height 2024-10-13 03:27:00 157.5 cm [facility] Body weight 2024-10-13 03:27:00 104.327 kg [facility] BMI 2024-10-13 03:27:00 42.07 kg/m2 [facility] Body temperature 2024-07-19 07:17:00 36.56 Latanya [facility] Heart rate 2024-07-19 07:14:00 74 /min [facility] Respiratory rate 2024-07-19 07:14:00 27 /min [facility] Oxygen saturation in Arterial blood by Pulse oximetry 2024-07-19 07:14:00 100 /min [facility] Systolic blood pressure 2024-07-19 07:00:00 123 mm[Hg] [facility] Diastolic blood pressure 2024-07-19 07:00:00 93 mm[Hg] [facility] Body height 2024-07-19 04:44:00 157.5 cm [facility] Body weight 2024-07-19 04:44:00 104.327 kg [facility] BMI 2024-07-19 04:44:00 42.07 kg/m2 [facility] Systolic blood pressure 2024-07-04 07:00:00 132 mm[Hg] [facility] Diastolic blood pressure 2024-07-04 07:00:00 98 mm[Hg] [facility] Heart rate 2024-07-04 07:00:00 85 /min [facility] Body temperature 2024-07-04 07:00:00 36.78 Latanya [facility] Respiratory rate 2024-07-04 07:00:00 18 /min [facility] Oxygen saturation in Arterial blood by Pulse oximetry 2024-07-04 07:00:00 94 /min [facility] Body height 2024-07-04 01:53:00 157.5 cm [facility] Body weight 2024-07-04 01:53:00 105.688 kg [facility] BMI 2024-07-04 01:53:00 42.62 kg/m2 [facility] Systolic blood pressure 2024-06-21 08:00:00 180 mm[Hg] [facility] Diastolic blood pressure 2024-06-21 08:00:00 107 mm[Hg] [facility] Heart rate 2024-06-21 08:00:00 89 /min [facility] Body temperature 2024-06-21 08:00:00 37.11 Latanya [facility] Respiratory rate 2024-06-21 08:00:00 22 /min [facility] Body height 2024-06-21 08:00:00 157.5 cm [facility] Body weight 2024-06-21 08:00:00 108.41 kg [facility] BMI 2024-06-21 08:00:00 43.71 kg/m2 [facility] Oxygen saturation in Arterial blood by Pulse oximetry 2024-06-21 08:00:00 100 /min [facility] Heart rate 2024-06-15 06:22:00 87 /min [facility] Body temperature 2024-06-15 06:22:00 37.11 Latanya [facility] Oxygen saturation in Arterial blood by Pulse oximetry 2024-06-15 06:22:00 96 /min [facility] Systolic blood pressure 2024-06-15 06:00:00 137 mm[Hg] [facility] Diastolic blood pressure 2024-06-15 06:00:00 85 mm[Hg] [facility] Respiratory rate 2024-06-15 06:00:00 15 /min [facility] Body height 2024-06-15 03:23:00 157.5 cm [facility] Body weight 2024-06-15 03:23:00 109.997 kg [facility] BMI 2024-06-15 03:23:00 44.35 kg/m2 [facility] Body temperature 2024-06-07 08:35:48 36.89 Latanya [facility] Systolic blood pressure 2024-06-07 08:00:00 129 mm[Hg] [facility] Diastolic blood pressure 2024-06-07 08:00:00 108 mm[Hg] [facility] Heart rate 2024-06-07 08:00:00 69 /min [facility] Respiratory rate 2024-06-07 08:00:00 24 /min [facility] Oxygen saturation in Arterial blood by Pulse oximetry 2024-06-07 08:00:00 97 /min [facility] Body height 2024-06-07 04:02:00 157.5 cm [facility] Body weight 2024-06-07 04:02:00 105.688 kg [facility] BMI 2024-06-07 04:02:00 42.62 kg/m2 [facility] Systolic blood pressure 2024-05-19 19:32:00 130 mm[Hg] [facility] Diastolic blood pressure 2024-05-19 19:32:00 74 mm[Hg] [facility] Heart rate 2024-05-19 19:32:00 84 /min [facility] Respiratory rate 2024-05-19 19:32:00 18 /min [facility] Oxygen saturation in Arterial blood by Pulse oximetry 2024-05-19 19:32:00 99 /min [facility] Body temperature 2024-05-19 17:44:00 36.83 Latanya [facility] Body height 2024-05-19 17:44:00 157.5 cm [facility] Body weight 2024-05-19 17:44:00 108.863 kg [facility] BMI 2024-05-19 17:44:00 43.90 kg/m2 [facility] Systolic blood pressure 2024-05-18 16:21:00 126 mm[Hg] [...] [facility] Body temperature 2024-05-18 04:14:00 37 Latanya [facility] Respiratory rate 2024-05-18 04:14:00 27 /min [facility] Oxygen saturation in Arterial blood by Pulse oximetry 2024-05-18 04:14:00 94 /min [facility] Systolic blood pressure 2024-05-18 04:00:00 141 mm[Hg] [facility] Diastolic blood pressure 2024-05-18 04:00:00 122 mm[Hg] [facility] Body height 2024-05-18 00:33:00 157.5 cm [facility] Body weight 2024-05-18 00:33:00 107.502 kg [facility] BMI 2024-05-18 00:33:00 43.35 kg/m2 [facility] Heart rate 2024-05-08 02:05:00 91 /min [facility] Respiratory rate 2024-05-08 02:05:00 22 /min [facility] Oxygen saturation in Arterial blood by Pulse oximetry 2024-05-08 02:05:00 95 /min [facility] Systolic blood pressure 2024-05-08 02:00:00 140 mm[Hg] [facility] Diastolic blood pressure 2024-05-08 02:00:00 86 mm[Hg] [facility] Body temperature 2024-05-07 23:46:00 36.78 Latanya [facility] Body height 2024-05-07 23:46:00 157.5 cm [facility] Body weight 2024-05-07 23:46:00 107.729 kg [facility] BMI 2024-05-07 23:46:00 43.44 kg/m2 [facility] Height 2024-04-10 16:28:00 157.053120 cm [facility] Weight 2024-04-10 16:28:00 104.802525 kg [facility] BMI (Body Mass Index) 2024-04-10 16:28:00 42.1 kg/m2 [facility] Systolic blood pressure 2024-04-09 01:30:00 134 mm[Hg] [facility] Diastolic blood pressure 2024-04-09 01:30:00 64 mm[Hg] [facility] Heart rate 2024-04-09 01:30:00 102 /min [facility] Body temperature 2024-04-09 01:30:00 36.61 Latanya [facility] Respiratory rate 2024-04-09 01:30:00 17 /min [facility] Oxygen saturation in Arterial blood by Pulse oximetry 2024-04-09 01:30:00 96 /min [facility] Body height 2024-04-08 22:31:00 157.5 cm [facility] Body weight 2024-04-08 22:31:00 104.327 kg [facility] BMI 2024-04-08 22:31:00 42.07 kg/m2 [facility] Body temperature 2023-12-13 14:10:00 36.72 Latanya [facility] - External Respiratory rate 2023-12-13 14:10:00 15 /min [facility] nic[facility] - External Body height 2023-12-13 14:10:00 157.5 cm [facility] nicolbeck - External Body weight 2023-12-13 14:10:00 105.688 kg [facility] - External BMI 2023-12-13 14:10:00 42.62 kg/m2 [facility] y[facility] - External Systolic blood pressure 2023-12-13 14:10:00 118 mm[Hg] [facility] - External Diastolic blood pressure 2023-12-13 14:10:00 74 mm[Hg] [facility] - External Heart rate 2023-12-13 14:10:00 97 /min [facility] y[facility] - External Systolic blood pressure 2023-12-03 15:44:00 [...] [facility] Diastolic blood pressure 2023-10-11 05:00:00 87 mm[Hg] [facility] Heart rate 2023-10-11 05:00:00 94 /min [facility] Respiratory rate 2023-10-11 05:00:00 22 /min [facility] Oxygen saturation in Arterial blood by Pulse oximetry 2023-10-11 05:00:00 98 /min [facility] Body temperature 2023-10-11 02:28:00 37.22 Latanya [facility] Body height 2023-10-11 02:28:00 157.5 cm [facility] Body weight 2023-10-11 02:28:00 99.791 kg [facility] BMI 2023-10-11 02:28:00 40.24 kg/m2 [facility] Systolic blood pressure 2023-07-02 04:10:00 147 mm[Hg] [facility] Diastolic blood pressure 2023-07-02 04:10:00 89 mm[Hg] [facility] Heart rate 2023-07-02 04:10:00 73 /min [facility] [facility] Respiratory rate 2023-07-02 04:10:00 19 /min [facility] Oxygen saturation in Arterial blood by Pulse oximetry 2023-07-02 04:10:00 98 /min [facility] Body temperature 2023-07-02 01:47:00 36.78 Latanya [facility] Body height 2023-07-02 01:47:00 160 cm [facility] Body weight 2023-07-02 01:47:00 97.659 kg [facility] BMI 2023-07-02 01:47:00 38.14 kg/m2 [facility] Systolic blood pressure 2023-05-10 01:00:00 133 mm[Hg] [facility] Diastolic blood pressure 2023-05-10 01:00:00 81 mm[Hg] [facility] Heart rate 2023-05-10 01:00:00 64 /min [facility] Respiratory rate 2023-05-10 01:00:00 21 /min [facility] Oxygen saturation in Arterial blood by Pulse oximetry 2023-05-10 01:00:00 96 /min [facility] Body temperature 2023-05-09 22:43:00 36.67 Latanya [facility] Body height 2023-05-09 22:43:00 157.5 cm [facility] Body weight 2023-05-09 22:43:00 99.791 kg [facility] BMI 2023-05-09 22:43:00 40.24 kg/m2 [facility] Systolic blood pressure 2023-05-01 01:00:00 107 mm[Hg] [facility] Diastolic blood pressure 2023-05-01 01:00:00 80 mm[Hg] [facility] Heart rate 2023-05-01 01:00:00 80 /min [facility] Body temperature 2023-05-01 01:00:00 37.06 Latanya [facility] Respiratory rate 2023-05-01 01:00:00 16 /min [facility] Oxygen saturation in Arterial blood by Pulse oximetry 2023-05-01 01:00:00 98 /min [facility] Body height 2023-04-30 22:16:00 157.5 cm [facility] Body weight 2023-04-30 22:16:00 95.255 kg [facility] BMI 2023-04-30 22:16:00 38.41 kg/m2 [facility] Systolic blood pressure 2023-04-17 02:00:00 147 mm[Hg] [facility] Diastolic blood pressure 2023-04-17 02:00:00 83 mm[Hg] [facility] Heart rate 2023-04-17 02:00:00 90 /min [facility] Respiratory rate 2023-04-17 02:00:00 18 /min [facility] Oxygen saturation in Arterial blood by Pulse oximetry 2023-04-17 02:00:00 96 /min [facility] Body temperature 2023-04-17 01:33:00 36.78 Latanya [facility] Body height 2023-04-17 01:33:00 157.5 cm [facility] Body weight 2023-04-17 01:33:00 99.791 kg [facility] BMI 2023-04-17 01:33:00 40.24 kg/m2 [facility] Systolic blood pressure 2023-04-09 01:04:48 135 mm[Hg] [facility] Diastolic blood pressure 2023-04-09 01:04:48 84 mm[Hg] [facility] Heart rate 2023-04-09 01:04:48 67 /min [facility] Respiratory rate 2023-04-09 01:04:48 16 /min [facility] Oxygen saturation in Arterial blood by Pulse oximetry 2023-04-09 01:04:48 99 /min [facility] Body temperature 2023-04-08 22:16:00 36.67 Latanya [facility] Body height 2023-04-08 22:16:00 157.5 cm [facility] Body weight 2023-04-08 22:16:00 99.791 kg [facility] BMI 2023-04-08 22:16:00 40.24 kg/m2 [facility] Systolic blood pressure 2023-03-10 05:00:00 156 mm[Hg] [facility] Diastolic blood pressure 2023-03-10 05:00:00 94 mm[Hg] [facility] Heart rate 2023-03-10 05:00:00 75 /min [facility] Respiratory rate 2023-03-10 05:00:00 21 /min [facility] Oxygen saturation in Arterial blood by Pulse oximetry 2023-03-10 05:00:00 97 /min [facility] Body temperature 2023-03-10 01:20:00 36.72 Latanya [facility] Body height 2023-03-10 01:20:00 157.5 cm [facility] Body weight 2023-03-10 01:20:00 100.381 kg [facility] BMI 2023-03-10 01:20:00 40.48 kg/m2 [facility] Systolic blood pressure 2023-03-02 06:00:00 126 mm[Hg] [facility] Diastolic blood pressure 2023-03-02 06:00:00 79 mm[Hg] [facility] Heart rate 2023-03-02 06:00:00 69 /min [facility] Respiratory rate 2023-03-02 06:00:00 23 /min [facility] Oxygen saturation in Arterial blood by Pulse oximetry 2023-03-02 06:00:00 94 /min [facility] Body temperature 2023-03-02 00:34:00 37.28 Latanya [facility] Body height 2023-03-02 00:34:00 157.5 cm [facility] Body weight 2023-03-02 00:34:00 99.791 kg [facility] BMI 2023-03-02 00:34:00 40.24 kg/m2 [facility] Systolic blood pressure 2023-02-18 06:46:00 126 mm[Hg] [facility] Diastolic blood pressure 2023-02-18 06:46:00 77 mm[Hg] [facility] Heart rate 2023-02-18 06:46:00 79 /min [facility] Respiratory rate 2023-02-18 06:46:00 16 /min [facility] Oxygen saturation in Arterial blood by Pulse oximetry 2023-02-18 06:46:00 95 /min [facility] Body temperature 2023-02-18 03:55:00 36.72 Latanya [facility] Body height 2023-02-18 03:55:00 157.5 cm [facility] Body weight 2023-02-18 03:55:00 102.331 kg [facility] BMI 2023-02-18 03:55:00 41.26 kg/m2 [facility] Systolic blood pressure 2023-02-17 16:20:00 113 mm[Hg] [facility] Diastolic blood pressure 2023-02-17 16:20:00 65 mm[Hg] [facility] Heart rate 2023-02-17 16:20:00 65 /min [facility] Body temperature 2023-02-17 16:20:00 36.83 Latanya [facility] Respiratory rate 2023-02-17 16:20:00 16 /min [facility] Oxygen saturation in Arterial blood by Pulse oximetry 2023-02-17 16:20:00 97 /min [facility] Body weight 2023-02-17 08:50:00 99.973 kg [facility] BMI 2023-02-17 08:50:00 40.31 kg/m2 [facility] Body height 2023-02-16 01:19:00 157.5 cm [facility] Systolic blood pressure 2022-01-10 01:24:00 120 mm[Hg] [facility] Diastolic blood pressure 2022-01-10 01:24:00 76 mm[Hg] [facility] Heart rate 2022-01-10 01:24:00 73 /min [facility] Respiratory rate 2022-01-10 01:24:00 16 /min [facility] Oxygen saturation in Arterial blood by Pulse oximetry 2022-01-10 01:24:00 96 /min [facility] Body weight 2022-01-09 21:39:00 104.327 kg [facility] BMI 2022-01-09 21:39:00 42.07 kg/m2 [facility] Systolic blood pressure 2021-12-14 07:22:00 121 mm[Hg] [facility] Diastolic blood pressure 2021-12-14 07:22:00 86 mm[Hg] [facility] Heart rate 2021-12-14 07:22:00 80 /min [facility] Respiratory rate 2021-12-14 07:22:00 17 /min [facility] Oxygen saturation in Arterial blood by Pulse oximetry 2021-12-14 07:22:00 96 /min [facility] Body temperature 2021-12-14 03:06:00 36.72 Latanya [facility] Body height 2021-12-14 03:06:00 157.5 cm [facility] Body weight 2021-12-14 03:06:00 95.255 kg [facility] BMI 2021-12-14 03:06:00 38.41 kg/m2 [facility] Systolic blood pressure 2021-11-12 04:15:00 112 mm[Hg] [facility] Diastolic blood pressure 2021-11-12 04:15:00 75 mm[Hg] [facility] Heart rate 2021-11-12 04:15:00 92 /min [facility] Body temperature 2021-11-12 04:15:00 36.44 Latanya [facility] Respiratory rate 2021-11-12 04:15:00 18 /min [facility] Oxygen saturation in Arterial blood by Pulse oximetry 2021-11-12 04:15:00 98 /min [facility] Body height 2021-11-12 00:41:00 157.5 cm [facility] Body weight 2021-11-12 00:41:00 95.255 kg [facility] BMI 2021-11-12 00:41:00 38.41 kg/m2 [facility] Systolic blood pressure 2021-09-12 01:31:00 142 mm[Hg] [facility] Diastolic blood pressure 2021-09-12 01:31:00 80 mm[Hg] [facility] Heart rate 2021-09-12 01:31:00 78 /min [facility] Body temperature 2021-09-12 01:31:00 36.72 Latanya [facility] Respiratory rate 2021-09-12 01:31:00 18 /min [facility] Body height 2021-09-12 01:31:00 157.5 cm [facility] Body weight 2021-09-12 01:31:00 99.791 kg [facility] BMI 2021-09-12 01:31:00 40.24 kg/m2 [facility] Oxygen saturation in Arterial blood by Pulse oximetry 2021-09-12 01:31:00 97 /min [facility] Systolic blood pressure 2021-08-15 08:20:00 120 mm[Hg] [facility] Diastolic blood pressure 2021-08-15 08:20:00 74 mm[Hg] [facility] Heart rate 2021-08-15 08:20:00 69 /min [facility] Respiratory rate 2021-08-15 08:20:00 20 /min [facility] Oxygen saturation in Arterial blood by Pulse oximetry 2021-08-15 08:20:00 96 /min [facility] Body temperature 2021-08-15 05:34:00 36.22 Latanya [facility] Body height 2021-08-15 05:34:00 157.5 cm [facility] Body weight 2021-08-15 05:34:00 99.791 kg [facility] BMI 2021-08-15 05:34:00 40.24 kg/m2 [facility] Systolic blood pressure 2021-05-28 10:00:00 122 mm[Hg] [facility] Diastolic blood pressure 2021-05-28 10:00:00 78 mm[Hg] [facility] Heart rate 2021-05-28 10:00:00 75 /min [facility] Respiratory rate 2021-05-28 10:00:00 20 /min [facility] Oxygen saturation in Arterial blood by Pulse oximetry 2021-05-28 10:00:00 99 /min [facility] Body temperature 2021-05-28 05:21:00 36.11 Latanya [facility] Body height 2021-05-28 05:21:00 157.5 cm [facility] Body weight 2021-05-28 05:21:00 99.791 kg [facility] BMI 2021-05-28 05:21:00 40.24 kg/m2 [facility] Systolic blood pressure 2021-04-08 21:55:00 110 mm[Hg] [facility] Diastolic blood pressure 2021-04-08 21:55:00 80 mm[Hg] [facility] Heart rate 2021-04-08 21:55:00 70 /min [facility] Body temperature 2021-04-08 21:55:00 36.28 Latanya [facility] Respiratory rate 2021-04-08 21:55:00 16 /min [facility] Oxygen saturation in Arterial blood by Pulse oximetry 2021-04-08 21:55:00 94 /min [facility] Body height 2021-04-08 03:00:00 157.5 cm [facility] Body weight 2021-04-08 03:00:00 105.688 kg [facility] BMI 2021-04-08 03:00:00 42.62 kg/m2 [facility] Systolic blood pressure 2021-01-12 09:00:00 147 mm[Hg] [facility] Diastolic blood pressure 2021-01-12 09:00:00 71 mm[Hg] [facility] Heart rate 2021-01-12 09:00:00 103 /min [facility] Respiratory rate 2021-01-12 09:00:00 18 /min [facility] Oxygen saturation in Arterial blood by Pulse oximetry 2021-01-12 09:00:00 97 /min [facility] Body temperature 2021-01-12 07:48:00 37.06 Latanya [facility] Body height 2021-01-12 07:48:00 157.5 cm [facility] Body weight 2021-01-12 07:48:00 102.513 kg [facility] BMI 2021-01-12 07:48:00 41.34 kg/m2 [facility] Systolic blood pressure 2020-12-11 01:30:00 136 mm[Hg] [facility] Diastolic blood pressure 2020-12-11 01:30:00 88 mm[Hg] [facility] Heart rate 2020-12-11 01:30:00 99 /min [facility] Respiratory rate 2020-12-11 01:30:00 28 /min [facility] Oxygen saturation in Arterial blood by Pulse oximetry 2020-12-11 01:30:00 97 /min [facility] Body temperature 2020-12-10 22:11:00 36.78 Latanya [facility] Body weight 2020-12-10 22:11:00 99.791 kg [facility] BMI 2020-12-10 22:11:00 40.24 kg/m2 [facility] Systolic blood pressure 2020-12-04 21:30:00 126 mm[Hg] [facility] Diastolic blood pressure 2020-12-04 21:30:00 79 mm[Hg] [facility] Heart rate 2020-12-04 21:30:00 91 /min [facility] Respiratory rate 2020-12-04 21:30:00 20 /min [facility] Oxygen saturation in Arterial blood by Pulse oximetry 2020-12-04 21:30:00 96 /min [facility] Body temperature 2020-12-04 19:49:00 37.06 Latanya [facility] Body height 2020-12-04 19:49:00 157.5 cm [facility] Body weight 2020-12-04 19:49:00 99.791 kg [facility] BMI 2020-12-04 19:49:00 40.24 kg/m2 [facility] Systolic blood pressure 2020-11-04 01:42:00 142 mm[Hg] [facility] Diastolic blood pressure 2020-11-04 01:42:00 100 mm[Hg] [facility] Heart rate 2020-11-04 01:42:00 109 /min [facility] Body temperature 2020-11-04 01:42:00 36.78 Latanya [facility] Respiratory rate 2020-11-04 01:42:00 20 /min [facility] Body weight 2020-11-04 01:42:00 99.791 kg [facility] BMI 2020-11-04 01:42:00 40.24 kg/m2 [facility] Oxygen saturation in Arterial blood by Pulse oximetry 2020-11-04 01:42:00 98 /min [facility] Systolic blood pressure 2020-09-17 15:52:00 138 mm[Hg] [facility] Diastolic blood pressure 2020-09-17 15:52:00 94 mm[Hg] [facility] Heart rate 2020-09-17 15:52:00 98 /min [facility] Body temperature 2020-09-17 15:52:00 36.94 Latanya [facility] Respiratory rate 2020-09-17 15:52:00 20 /min [facility] Body weight 2020-09-17 15:52:00 95.255 kg [facility] BMI 2020-09-17 15:52:00 38.41 kg/m2 [facility] Oxygen saturation in Arterial blood by Pulse oximetry 2020-09-17 15:52:00 97 /min [facility] Systolic blood pressure 2020-09-17 15:52:00 138 mm[Hg] [facility] Diastolic blood pressure 2020-09-17 15:52:00 94 mm[Hg] [facility] Heart rate 2020-09-17 15:52:00 98 /min [facility] Body temperature 2020-09-17 15:52:00 36.94 Latanya [facility] Respiratory rate 2020-09-17 15:52:00 20 /min [facility] Body weight 2020-09-17 15:52:00 95.255 kg [facility] BMI 2020-09-17 15:52:00 38.41 kg/m2 [facility] Oxygen saturation in Arterial blood by Pulse oximetry 2020-09-17 15:52:00 97 /min [facility] Systolic blood pressure 2020-09-07 06:35:00 123 mm[Hg] [facility] Diastolic blood pressure 2020-09-07 06:35:00 56 mm[Hg] [facility] Heart rate 2020-09-07 06:35:00 97 /min [facility] Body temperature 2020-09-07 06:35:00 36.28 Latanya [facility] Respiratory rate 2020-09-07 06:35:00 18 /min [facility] Body weight 2020-09-07 06:35:00 99.791 kg [facility] BMI 2020-09-07 06:35:00 40.24 kg/m2 [facility] Oxygen saturation in Arterial blood by Pulse oximetry 2020-09-07 06:35:00 98 /min [facility] Systolic blood pressure 2020-09-07 06:35:00 123 mm[Hg] [facility] Diastolic blood pressure 2020-09-07 06:35:00 56 mm[Hg] [facility] Heart rate 2020-09-07 06:35:00 97 /min [facility] Body temperature 2020-09-07 06:35:00 36.28 Latanya [facility] Respiratory rate 2020-09-07 06:35:00 18 /min [facility] Body weight 2020-09-07 06:35:00 99.791 kg [facility] BMI 2020-09-07 06:35:00 40.24 kg/m2 [facility] Oxygen saturation in Arterial blood by Pulse oximetry 2020-09-07 06:35:00 98 /min [facility] Systolic blood pressure 2020-08-28 09:00:00 132 mm[Hg] [facility] Diastolic blood pressure 2020-08-28 09:00:00 87 mm[Hg] [facility] Heart rate 2020-08-28 09:00:00 90 /min [facility] Respiratory rate 2020-08-28 09:00:00 20 /min [facility] Oxygen saturation in Arterial blood by Pulse oximetry 2020-08-28 09:00:00 97 /min [facility] Body temperature 2020-08-28 07:59:00 36.72 Latanya [facility] Body height 2020-08-28 07:59:00 157.5 cm [facility] Body weight 2020-08-28 07:59:00 99.791 kg [facility] BMI 2020-08-28 07:59:00 40.24 kg/m2 [facility] Systolic blood pressure 2020-08-28 09:00:00 132 mm[Hg] [facility] Diastolic blood pressure 2020-08-28 09:00:00 87 mm[Hg] [facility] Heart rate 2020-08-28 09:00:00 90 /min [facility] Respiratory rate 2020-08-28 09:00:00 20 /min [facility] Oxygen saturation in Arterial blood by Pulse oximetry 2020-08-28 09:00:00 97 /min [facility] Body temperature 2020-08-28 07:59:00 36.72 Latanya [facility] Body height 2020-08-28 07:59:00 157.5 cm [facility] Body weight 2020-08-28 07:59:00 99.791 kg [facility] BMI 2020-08-28 07:59:00 40.24 kg/m2 [facility] Systolic blood pressure 2020-08-14 19:40:00 135 mm[Hg] [facility] Diastolic blood pressure 2020-08-14 19:40:00 100 mm[Hg] [facility] Heart rate 2020-08-14 19:40:00 68 /min [facility] Body temperature 2020-08-14 19:40:00 37.11 Latanya [facility] Respiratory rate 2020-08-14 19:40:00 19 /min [facility] Oxygen saturation in Arterial blood by Pulse oximetry 2020-08-14 19:40:00 99 /min [facility] Body height 2020-08-14 17:41:00 157.5 cm [facility] Body weight 2020-08-14 17:41:00 99.791 [facility] [facility] BMI 2020-08-14 17:41:00 40.24 kg/m2 [facility] Systolic blood pressure 2020-08-14 19:40:00 135 mm[Hg] [facility] Diastolic blood pressure 2020-08-14 19:40:00 100 mm[Hg] [facility] Heart rate 2020-08-14 19:40:00 68 /min [facility] Body temperature 2020-08-14 19:40:00 37.11 Latanya [facility] Respiratory rate 2020-08-14 19:40:00 19 /min [facility] Oxygen saturation in Arterial blood by Pulse oximetry 2020-08-14 19:40:00 99 /min [facility] Body height 2020-08-14 17:41:00 157.5 cm [facility] Body weight 2020-08-14 17:41:00 99.791 kg [facility] BMI 2020-08-14 17:41:00 40.24 kg/m2 [facility] Systolic blood pressure 2020-08-11 04:00:00 106 mm[Hg] [facility] Diastolic blood pressure 2020-08-11 04:00:00 92 mm[Hg] [facility] Heart rate 2020-08-11 04:00:00 90 /min [facility] Respiratory rate 2020-08-11 04:00:00 16 /min [facility] Oxygen saturation in Arterial blood by Pulse oximetry 2020-08-11 04:00:00 99 /min [facility] Body temperature 2020-08-11 03:12:56 37.72 Latanya [facility] Body height 2020-08-11 00:19:00 157.5 cm [facility] Body weight 2020-08-11 00:19:00 99.791 kg [facility] BMI 2020-08-11 00:19:00 40.24 kg/m2 [facility] Systolic blood pressure 2020-08-11 04:00:00 106 mm[Hg] [facility] Diastolic blood pressure 2020-08-11 04:00:00 92 mm[Hg] [facility] Heart rate 2020-08-11 04:00:00 90 /min [facility] Respiratory rate 2020-08-11 04:00:00 16 /min [facility] Oxygen saturation in Arterial blood by Pulse oximetry 2020-08-11 04:00:00 99 /min [facility] Body temperature 2020-08-11 03:12:56 37.72 Latanya [facility] Body height 2020-08-11 00:19:00 157.5 cm [facility] Body weight 2020-08-11 00:19:00 99.791 kg [facility] BMI 2020-08-11 00:19:00 40.24 kg/m2 [facility] Systolic blood pressure 2020-08-07 13:16:00 100 mm[Hg] [facility] Diastolic blood pressure 2020-08-07 13:16:00 69 mm[Hg] [facility] Heart rate 2020-08-07 13:16:00 99 /min [facility] Body temperature 2020-08-07 13:16:00 36.67 Latanya [facility] Respiratory rate 2020-08-07 13:16:00 18 /min [facility] Body weight 2020-08-07 13:16:00 95.255 kg [facility] BMI 2020-08-07 13:16:00 38.41 kg/m2 [facility] Oxygen saturation in Arterial blood by Pulse oximetry 2020-08-07 13:16:00 99 /min [facility] Systolic blood pressure 2020-08-07 13:16:00 100 mm[Hg] [facility] Diastolic blood pressure 2020-08-07 13:16:00 69 mm[Hg] [facility] Heart rate 2020-08-07 13:16:00 99 /min [facility] Body temperature 2020-08-07 13:16:00 36.67 Latanya [facility] Respiratory rate 2020-08-07 13:16:00 18 /min [facility] Body weight 2020-08-07 13:16:00 95.255 kg [facility] BMI 2020-08-07 13:16:00 38.41 kg/m2 [facility] Oxygen saturation in Arterial blood by Pulse oximetry 2020-08-07 13:16:00 99 /min [facility] Systolic blood pressure 2020-07-01 02:00:00 136 mm[Hg] [facility] Diastolic blood pressure 2020-07-01 02:00:00 85 mm[Hg] [facility] Heart rate 2020-07-01 02:00:00 73 /min [facility] Respiratory rate 2020-07-01 02:00:00 20 /min [facility] Oxygen saturation in Arterial blood by Pulse oximetry 2020-07-01 02:00:00 97 /min [facility] Body temperature 2020-06-30 23:36:00 36.56 Latanya [facility] Body height 2020-06-30 23:36:00 157.5 cm [facility] Body weight 2020-06-30 23:36:00 95.255 kg [facility] BMI 2020-06-30 23:36:00 38.41 kg/m2 [facility] Systolic blood pressure 2020-07-01 02:00:00 136 mm[Hg] [facility] Diastolic blood pressure 2020-07-01 02:00:00 85 mm[Hg] [facility] Heart rate 2020-07-01 02:00:00 73 /min [facility] Respiratory rate 2020-07-01 02:00:00 20 /min [facility] Oxygen saturation in Arterial blood by Pulse oximetry 2020-07-01 02:00:00 97 /min [facility] Body temperature 2020-06-30 23:36:00 36.56 Latanya [facility] Body height 2020-06-30 23:36:00 157.5 cm [facility] Body weight 2020-06-30 23:36:00 95.255 kg [facility] BMI 2020-06-30 23:36:00 38.41 kg/m2 [facility] Systolic blood pressure 2020-06-28 21:57:00 151 mm[Hg] [facility] Diastolic blood pressure 2020-06-28 21:57:00 88 mm[Hg] [facility] Heart rate 2020-06-28 21:57:00 94 /min [facility] Body temperature 2020-06-28 21:57:00 37.78 Latanya [facility] Respiratory rate 2020-06-28 21:57:00 16 /min [facility] Body height 2020-06-28 21:57:00 157.5 cm [facility] Body weight 2020-06-28 21:57:00 95.255 kg [facility] BMI 2020-06-28 21:57:00 38.41 kg/m2 [facility] Oxygen saturation in Arterial blood by Pulse oximetry 2020-06-28 21:57:00 96 /min [facility] Systolic blood pressure 2020-06-28 21:57:00 151 mm[Hg] [facility] Diastolic blood pressure 2020-06-28 21:57:00 88 mm[Hg] [facility] Heart rate 2020-06-28 21:57:00 94 /min [facility] Body temperature 2020-06-28 21:57:00 37.78 Latanya [facility] Respiratory rate 2020-06-28 21:57:00 16 /min [facility] Body height 2020-06-28 21:57:00 157.5 cm [facility] Body weight 2020-06-28 21:57:00 95.255 kg [facility] BMI 2020-06-28 21:57:00 38.41 kg/m2 [facility] Oxygen saturation in Arterial blood by Pulse oximetry 2020-06-28 21:57:00 96 /min [facility] Systolic blood pressure 2020-06-13 03:40:00 122 mm[Hg] [facility] Diastolic blood pressure 2020-06-13 03:40:00 78 mm[Hg] [facility] Heart rate 2020-06-13 03:40:00 90 /min [facility] Respiratory rate 2020-06-13 03:40:00 18 /min [facility] Oxygen saturation in Arterial blood by Pulse oximetry 2020-06-13 03:40:00 94 /min [facility] Body temperature 2020-06-12 23:39:00 37.22 Latanya [facility] Body weight 2020-06-12 23:39:00 97.07 kg [facility] BMI 2020-06-12 23:39:00 39.14 kg/m2 [facility] Systolic blood pressure 2020-06-13 03:40:00 122 mm[Hg] [facility] Diastolic blood pressure 2020-06-13 03:40:00 78 mm[Hg] [facility] Heart rate 2020-06-13 03:40:00 90 /min [facility] Respiratory rate 2020-06-13 03:40:00 18 /min [facility] Oxygen saturation in Arterial blood by Pulse oximetry 2020-06-13 03:40:00 94 /min [facility] Body temperature 2020-06-12 23:39:00 37.22 Latanya [facility] Body weight 2020-06-12 23:39:00 97.07 kg [facility] BMI 2020-06-12 23:39:00 39.14 kg/m2 [facility] Heart rate 2020-05-17 00:40:00 82 /min [facility] Respiratory rate 2020-05-17 00:40:00 18 /min [facility] Oxygen saturation in Arterial blood by Pulse oximetry 2020-05-17 00:40:00 95 /min [facility] Systolic blood pressure 2020-05-17 00:00:00 137 mm[Hg] [facility] Diastolic blood pressure 2020-05-17 00:00:00 93 mm[Hg] [facility] Body temperature 2020-05-16 23:17:00 37.61 Latanya [facility] Body weight 2020-05-16 23:17:00 97.07 kg [facility] BMI 2020-05-16 23:17:00 39.14 kg/m2 [facility] Heart rate 2020-05-17 00:40:00 82 /min [facility] Respiratory rate 2020-05-17 00:40:00 18 /min [facility] Oxygen saturation in Arterial blood by Pulse oximetry 2020-05-17 00:40:00 95 /min [facility] Systolic blood pressure 2020-05-17 00:00:00 137 mm[Hg] [facility] Diastolic blood pressure 2020-05-17 00:00:00 93 mm[Hg] [facility] Body temperature 2020-05-16 23:17:00 37.61 Latanya [facility] Body weight 2020-05-16 23:17:00 97.07 kg [facility] BMI 2020-05-16 23:17:00 39.14 kg/m2 [facility] Systolic blood pressure 2020-05-15 08:50:00 131 mm[Hg] [facility] Diastolic blood pressure 2020-05-15 08:50:00 80 mm[Hg] [facility] Heart rate 2020-05-15 08:50:00 70 /min [facility] Respiratory rate 2020-05-15 08:50:00 18 /min [facility] Oxygen saturation in Arterial blood by Pulse oximetry 2020-05-15 08:50:00 97 /min [facility] Body temperature 2020-05-15 05:29:00 36.44 Latanya [facility] Body height 2020-05-15 05:29:00 157.5 cm [facility] Body weight 2020-05-15 05:29:00 97.07 kg Simultaneous filing. User may not have seen previous data. [facility] BMI 2020-05-15 05:29:00 39.14 kg/m2 [facility] Systolic blood pressure 2020-05-15 08:50:00 131 mm[Hg] [facility] Diastolic blood pressure 2020-05-15 08:50:00 80 mm[Hg] [facility] Heart rate 2020-05-15 08:50:00 70 /min [facility] Respiratory rate 2020-05-15 08:50:00 18 /min [facility] Oxygen saturation in Arterial blood by Pulse oximetry 2020-05-15 08:50:00 97 /min [facility] Body temperature 2020-05-15 05:29:00 36.44 Latanya [facility] Body height 2020-05-15 05:29:00 157.5 cm [facility] Body weight 2020-05-15 05:29:00 97.07 kg Simultaneous filing. User may not have seen previous data. [facility] BMI 2020-05-15 05:29:00 39.14 kg/m2 [facility] Procedures Procedure Date / Time Performed Performing Clinician Source MAGNESIUM 2024-11-27 08:21:00 [facility] TROPONIN I 2024-11-27 08:21:00 Alexx Kwok [facility] BASIC METABOLIC PANEL (NA, K, CL, CO2, GLUCOSE, BUN, CREATININE, CA) 2024-11-27 08:21:00 Alexx Kwok [facility] LIPID PANEL (85688)(TOTAL CHOLESTEROL, TRIGLYCERIDES, HDL) 2024-11-27 08:21:00 Alexx Kwok [facility] CBC WITH DIFF 2024-11-27 08:21:00 [facility] 2024-11-27 03:14:00 Alexx Kwok [facility] LIPASE 2024-11-26 23:54:00 [facility]ud[facility] MAG[facility]UM 2024-11-26 23:54:00 [facility] TROPONIN I 2024-11-26 23:54:00 Singer Klaudia [facility] COMP. METABOLIC PANEL ([id number]) 2024-11-26 23:54:00 Singer Klaudia [facility] CBC WITH DIFF 2024-11-26 23:54:00 Singer [facility] N-TERMINAL PRO-BNP 2024-11-26 23:54:00 Singer [facility] XR CHEST 1 VW 2024-11-26 23:28:51 Singer [facility] HB ECG ROUTINE & RHYTHM STRIP 2024-11-26 22:53:55 Singer [facility] URINALYSIS 2024-11-15 01:45:00 [facility] 2024-11-15 01:45:00 Rosario Rios ra [facility] CT ABDOMEN PELVIS W CONTRAST 2024-11-11 04:01:35 Bob Garcia [facility] POCT TEST 2024-11-11 02:26:00 Bob Garcia [facility] LIPASE 2024-11-11 02:23:00 Bob Garcia [facility] COMP. METABOLIC PANEL ([id number]) 2024-11-11 02:23:00 Bob Garcia [facility] CBC WITH DIFF 2024-11-11 02:23:00 Bob [facility] 2024-11-11 02:23:00 Bob Garcia [facility] MAGNESIUM 2024-11-04 09:46:00 Corinna Cowan [facility] BASIC METABOLIC PANEL (NA, K, CL, CO2, GLUCOSE, BUN, CREATININE, CA) 2024-11-04 09:46:00 Jean Carlos Cowan [facility] CBC WITH DIFF 2024-11-04 09:46:00 Corinna Cowan [facility] MAGNESIUM 2024-11-04 09:46:00 Corinna Cowan [facility] BASIC METABOLIC PANEL (NA, K, CL, CO2, GLUCOSE, BUN, CREATININE, CA) 2024-11-04 09:46:00 Jean Carlos Cowan [facility] CBC WITH DIFF 2024-11-04 09:46:00 Corinna Cowan [facility] CATH PROCEDURE LOG 2024-11-03 20:05:03 Rosario Virk [facility] CATH PROCEDURE LOG 2024-11-03 20:05:03 Rosario Virk [facility] CARDIAC CATHETERIZATION 2024-11-03 19:40:00 Rika Virk [facility] CARDIAC CATHETERIZATION 2024-11-03 19:40:00 Rika Virk [facility] CARDIAC CATHETERIZATION 2024-11-03 19:40:00 Rika Virk [facility] CARDIAC CATHETERIZATION 2024-11-03 19:40:00 Rika Virk [facility] CARDIAC CATHETERIZATION 2024-11-03 19:40:00 Rika Virk [facility] CARDIAC CATHETERIZATION 2024-11-03 19:40:00 Rika Virk [facility] ACTIVATED PARTIAL THRMPLAS MARCIO 2024-11-03 14:13:00 [facility]IO 2024-11-03 14:13:00 [facility] 2024-11-03 11:08:00 Corinna Cowan [facility] BASIC METABOLIC PANEL (NA, K, CL, CO2, GLUCOSE, BUN, CREATININE, CA) 2024-11-03 11:08:00 Jean Carlos Cowan [facility] MAGNESIUM 2024-11-03 11:08:00 Corinna Cowan [facility] BASIC METABOLIC PANEL (NA, K, CL, CO2, GLUCOSE, BUN, CREATININE, CA) 2024-11-03 11:08:00 Jean Carlos Cowan [facility] CBC WITH DIFF 2024-11-03 09:45:00 Corinna Cowan [facility] CBC WITH DIFF 2024-11-03 09:45:00 Corinna Cowan [facility] ACTIVATED PARTIAL THRMPLAS MARCIO 2024-11-03 07:43:00 Kylah [facility] ACTIVATED PARTIAL THRMPLAS MARCIO 2024-11-03 07:43:00 Kylah [facility] ACTIVATED PARTIAL THRMPLAS MARCIO 2024-11-03 00:54:00 Kylah [facility] ACTIVATED PARTIAL THRMPLAS MARCIO 2024-11-03 00:54:00 Kylah [facility] HB ECG ROUTINE & RHYTHM STRIP 2024-11-02 21:49:21 Rosario Virk [facility] ACTIVATED PARTIAL THRMPLAS MARCIO 2024-11-02 14:41:00 Kylah [facility] ACTIVATED PARTIAL THRMPLAS MARCIO 2024-11-02 14:41:00 Kylah [facility] MAGNESIUM 2024-11-02 08:35:00 Farnaz Nixon [facility] BASIC METABOLIC PANEL (NA, K, CL, CO2, GLUCOSE, BUN, CREATININE, CA) 2024-11-02 08:35:00 Hussain [facility] CBC WITH DIFF 2024-11-02 08:35:00 Brantt [facility] ACTIVATED PARTIAL THRMPLAS MARCIO 2024-11-02 08:35:00 [facility] 2024-11-02 08:35:00 Hussain [facility] BASIC METABOLIC PANEL (NA, K, CL, CO2, GLUCOSE, BUN, CREATININE, CA) 2024-11-02 08:35:00 Khoot [facility] CBC WITH DIFF 2024-11-02 08:35:00 Hussain [facility] ACTIVATED PARTIAL THRMPLAS MARCIO 2024-11-02 08:35:00 Kylah [facility] MRSA / MSSA SCREEN BY PCR, [facility] 2024-11-02 02:11:00 Hussain [facility] MRSA / MSSA SCREEN BY PCR, [facility] 2024-11-02 02:11:00 Khfabbyt [facility] PHOSPHORUS 2024-11-02 02:08:00 Khfabbyt [facility] TROPONIN I 2024-11-02 02:08:00 Khoot, [facility] ACTIVATED PARTIAL THRMPLAS MARCIO 2024-11-02 02:08:00 Kylah [facility] PHOSPHORUS 2024-11-02 02:08:00 Artoot [facility] TROPONIN I 2024-11-02 02:08:00 Khoot, [facility] ACTIVATED PARTIAL THRMPLAS MARCIO 2024-11-02 02:08:00 Kylah [facility] HB ECG ROUTINE & RHYTHM STRIP 2024-11-01 23:29:25 Khfabbyt [facility] HB ECG ROUTINE & RHYTHM STRIP 2024-11-01 23:29:25 Hussain [facility] URINALYSIS 2024-11-01 19:35:00 Susie Brewer [facility] URINE CULTURE 2024-11-01 19:35:00 Susie Brewer [facility] URINALYSIS 2024-11-01 19:35:00 [facility] 2024-11-01 19:35:00 Susie Brewer [facility] PROTHROMBIN TIME / INR 2024-11-01 19:34:00 Parmjit Montero [facility] ACTIVATED PARTIAL THRMPLAS MARCIO 2024-11-01 19:34:00 Zay Montero [facility] PROTHROMBIN TIME / INR 2024-11-01 19:34:00 Parmjit Montero guerrero [facility] ACTIVATED PARTIAL THRMPLAS MARCIO 2024-11-01 19:34:00 [facility] (TTE) COMPLETE W/ CONTRAST 2024-11-01 13:44:00 Viviana [facility] TRANSTHORACIC ECHO (TTE) COMPLETE W/ CONTRAST 2024-11-01 13:44:00 Viviana [facility] TROPONIN I 2024-11-01 13:26:00 Viviana [facility] THYROID STIMULATING HORMONE 2024-11-01 13:26:00 Farnaz Nixon [facility] LIPID PANEL ([id number])(TOTAL CHOLESTEROL, TRIGLYCERIDES, HDL) 2024-11-01 13:26:00 Natasha Hernandes [facility] N-TERMINAL PRO-BNP 2024-11-01 13:26:00 Natasha Hernandes [facility] TROPONIN I 2024-11-01 13:26:00 Viviana [facility] THYROID STIMULATING HORMONE 2024-11-01 13:26:00 Farnaz Nixon [facility] LIPID PANEL ([id number])(TOTAL CHOLESTEROL, TRIGLYCERIDES, HDL) 2024-11-01 13:26:00 Natasha Hernandes [facility] N-TERMINAL PRO-BNP 2024-11-01 13:26:00 Natasha Hernandes [facility] INFLUENZA A/B RSV COVID NAAT 2024-11-01 09:35:00 Edcecilia [facility] LAB ONLY COVID INTERPRETATION 2024-11-01 09:35:00 Ediontamela [facility] INFLUENZA A/B RSV COVID NAAT 2024-11-01 09:35:00 Ediontamela [facility] LAB ONLY COVID INTERPRETATION 2024-11-01 09:35:00 Ediontamela [facility] TROPONIN I 2024-11-01 07:17:00 Ediontamela [facility] BASIC METABOLIC PANEL (NA, K, CL, CO2, GLUCOSE, BUN, CREATININE, CA) 2024-11-01 07:17:00 Ediontamela [facility] CBC WITH DIFF 2024-11-01 07:17:00 Viviana [facility] GLYCOSYLATED HEMOGLOBIN (A1C) 2024-11-01 07:17:00 Natasha Hernandes [facility] PROCALCITONIN 2024-11-01 07:17:00 Ediontamela [facility] TROPONIN I 2024-11-01 07:17:00 Ediontamela, [facility] BASIC METABOLIC PANEL (NA, K, CL, CO2, GLUCOSE, BUN, CREATININE, CA) 2024-11-01 07:17:00 Ediontamela [facility] CBC WITH DIFF 2024-11-01 07:17:00 Ediontamela [facility] GLYCOSYLATED HEMOGLOBIN (A1C) 2024-11-01 07:17:00 Natasha Hernandes [facility] PROCALCITONIN 2024-11-01 07:17:00 Viviana [facility] XR CHEST 1 VW 2024-11-01 03:19:58 Bob Garcia [facility] XR CHEST 1 VW 2024-11-01 03:19:58 [facility] 2024-11-01 02:53:00 Bob Garcia [facility] TROPONIN I 2024-11-01 02:53:00 Bob Garcia [facility] COMP. METABOLIC PANEL ([id number]) 2024-11-01 02:53:00 Bob Garcia [facility] [place] [facility] WITH DIFF 2024-11-01 02:53:00 Bob Garcia [facility] LIPASE 2024-11-01 02:53:00 Bob Garcia [facility] TROPONIN I 2024-11-01 02:53:00 Bob Garcia [facility] COMP. METABOLIC PANEL ([id number]) 2024-11-01 02:53:00 Bob Garcia [facility] CBC WITH DIFF 2024-11-01 02:53:00 Bob Garcia [facility] HB ECG ROUTINE & RHYTHM STRIP 2024-11-01 02:32:05 Bob Garcia [facility] HB ECG ROUTINE & RHYTHM STRIP 2024-11-01 02:32:05 Bob Garcia [facility] CT ABDOMEN PELVIS W CONTRAST 2024-10-24 03:31:17 Juanjose Barker [facility] LIPASE 2024-10-24 01:34:00 Juanjose [facility] COMP. METABOLIC PANEL ([id number]) 2024-10-24 01:34:00 Juanjose Barker [facility] CBC WITH DIFF 2024-10-24 01:34:00 Juanjose Barker [facility] URINALYSIS 2024-10-24 01:34:00 Juanjose [facility] TROPONIN I 2024-10-13 06:39:00 Bob Garcia [facility] LIPASE 2024-10-13 04:20:00 Bob Garcia [facility] TROPONIN I 2024-10-13 04:20:00 Bob Garcia [facility] COMP. METABOLIC PANEL ([id number]) 2024-10-13 04:20:00 Bob Garcia [facility] CBC WITH DIFF 2024-10-13 04:20:00 Bob Garcia [facility] N-TERMINAL PRO-BNP 2024-10-13 04:20:00 Bob Garcia [facility] POCT TEST 2024-10-13 03:46:00 Bob Garcia [facility] URINALYSIS 2024-10-13 03:39:00 Bob Garcia [facility] URINE DRUG (IMMUNOASSAY) - COMPREHENSIVE DRUG SCREEN 2024-07-19 06:11:00 Saleem Edward [facility] URINALYSIS 2024-07-19 06:11:00 Saleem Edward [facility] CT CHEST PULMONARY ANGIOGRAM 2024-07-19 05:46:40 Saleem Edward [facility] MAGNESIUM 2024-07-19 05:08:00 Saleem Edward [facility] TROPONIN I 2024-07-19 05:08:00 Saleem Edward Eleni [facility] COMP. METABOLIC PANEL ([id number]) 2024-07-19 05:08:00 Saleem Edward [facility] CBC WITH DIFF 2024-07-19 05:08:00 Saleem Edward [facility] INFLUENZA A/B RSV COVID NAAT 2024-07-19 05:08:00 Saleem Edward Eleni [facility] N-TERMINAL PRO-BNP 2024-07-19 05:08:00 Saleem Edward Eleni [facility] CT ABDOMEN PELVIS W CONTRAST 2024-07-04 05:47:25 Sandy Garcia [facility] POCT TEST 2024-07-04 05:33:00 Ross Garcia [facility] LIPASE 2024-07-04 03:23:00 Sandy Garcia [facility] COMP. METABOLIC PANEL ([id number]) 2024-07-04 03:23[facility] 2024-07-04 03:23[facility]00 [facility] 2024-07-04 03:23:00 Sandy Garcia [facility] CT ABDOMEN PELVIS W CONTRAST 2024-06-15 05:33:59 [facility] 2024-06-15 04:18:00 Sandy Garcia [facility] LIPASE 2024-06-15 04:14:00 Sandy Garcia [facility] TEST, SERUM 2024-06-15 04:14:00 Laney Garcia [facility] TROPONIN I 2024-06-15 04:14:[facility] METABOLIC PANEL ([id number]) 2024-06-15 04:14:00 [facility]FF 2024-06-15 04:14:00 [facility] 2024-06-07 07:19:00 Bob Garcia [facility] XR CHEST 1 VW 2024-06-07 05:38:37 Bob Garcia [facility] POCT TEST 2024-06-07 05:19:00 Bob Garcia [facility] URINE DRUG (IMMUNOASSAY) - COMPREHENSIVE DRUG SCREEN 2024-06-07 05:18:00 Bob Garcia [facility] TROPONIN I 2024-06-07 04:10:00 Bob Garcia [facility] COMP. METABOLIC PANEL ([id number]) 2024-06-07 04:10:00 Bob Garcia [facility] CBC WITH DIFF 2024-06-07 04:10:00 Bob Garcia [facility] CT HEAD WO CONTRAST 2024-05-19 18:22:43 Rafal Wright [facility] XR ELBOW <3 VW RIGHT 2024-05-18 02:32:12 Tammy Barrera [facility] XR FOREARM 2 VW RIGHT 2024-05-18 02:32:12 Tammy Moralez [facility] XR HAND 3+ VW RIGHT 2024-05-18 02:32:12 Tammy Casanova [facility] CT CERVICAL SPINE WO CONTRAST 2024-05-18 02:11:45 Tammy Roy [facility] CT MAXILLOFACIAL/MANDIBLE WO CONTRAST 2024-05-18 02:11:45 Tammy Roy [facility] POCT TEST 2024-05-08 02:00:00 Saleem Edward [facility] LIPASE 2024-05-08 00:31:00 Saleem Edward [facility] MAGNESIUM 2024-05-08 00:31:00 Saleem Edward [facility] TROPONIN I 2024-05-08 00:31:00 Saleem Edward [facility] COMP. METABOLIC PANEL ([id number]) 2024-05-08 00:31:00 Saleem Edward [facility] CBC WITH DIFF 2024-05-08 00:31:00 Saleem Edward [facility] URINALYSIS 2024-05-08 00:31:00 Saleem Edward [facility] CT ABDOMEN PELVIS WO CONTRAST 2024-04-08 23:45:15 Jacque Rojo [facility] POCT TEST 2024-04-08 23:01:00 Judy Rojo [facility] LIPASE 2024-04-08 22:47:00 Jacque Rojo [facility] COMP. METABOLIC PANEL ([id number]) 2024-04-08 22:47:00 Jacque Rojo [facility] CBC WITH DIFF 2024-04-08 22:47:00 Jacque Rojo [facility] URINALYSIS 2024-04-08 22:47:00 Jacque Rojo [facility] CT ABDOMEN PELVIS W CONTRAST 2023-10-11 04:08:24 Bob Garcia [facility] POCT TEST 2023-10-11 03:40:00 Bob Garcia [facility] LIPASE 2023-10-11 03:25[facility] METABOLIC PANEL ([id number]) 2023-10-11 03:25:00 Bob Garcia [facility] CBC WITH DIFF 2023-10-11 03:25:00 Bob [facility] 2023-10-11 03:25:00 Bob Garcia [facility] XR KUB 2023-07-02 03:34:07 Roberto Richards [facility] POCT TEST 2023-07-02 02:30:00 Alberta Richards [facility] LIPASE 2023-07-02 02:05:00 Roberto Richards [facility] COMP. METABOLIC PANEL ([id number]) 2023-07-02 02:05:00 Roberto Richards [facility] CBC WITH DIFF 2023-07-02 02:05:00 Roberto Richards [facility] URINALYSIS 2023-07-02 02:05:00 Roberto Richards [facility] URINE DRUG (IMMUNOASSAY) - COMPREHENSIVE DRUG SCREEN W/O REFLEX 2023-07-02 02:05:00 Roberto Richards [facility] CONSENT/REFUSAL FOR DIAGNOSIS AND TREATMENT 2023-07-02 01:43:05 Doctor Unassigned, [place] [facility] LIPASE 2023-05-09 22:47:00 Klaudia Narvaez [facility] COMP. METABOLIC PANEL ([id number]) 2023-05-09 22:47:00 Klaudia Narvaez [facility] CBC WITH DIFF 2023-05-09 22:47:00 Klaudia Narvaez [facility] CONSENT/REFUSAL FOR DIAGNOSIS AND TREATMENT 2023-05-09 22:32:48 Doctor Unassigned, [place] [facility] CT ABDOMEN PELVIS W CONTRAST 2023-04-30 23:47:56 Klaudia Narvaez [facility] COMP. METABOLIC PANEL ([id number]) 2023-04-30 23:08:00 Klaudia Narvaez [facility] CBC WITH DIFF 2023-04-30 23:08:00 Klaudia Narvaez [facility] POCT TEST 2023-04-30 22:59:00 Jaquan Narvaez [facility] URINALYSIS 2023-04-30 22:57:00 Klaudia Narvaez [facility] CONSENT/REFUSAL FOR DIAGNOSIS AND TREATMENT 2023-04-30 22:14:38 Doctor Unassigned, [place] [facility] XR ABDOMEN ACUTE SERIES 2023-04-17 02:13:44 Do minal Richards [facility] POCT TEST 2023-04-17 02:11:00 Alberta Richards [facility] LIPASE 2023-04-17 02:04:00 Roberto Richards [facility] TROPONIN I 2023-04-17 02:04:00 Roberto Richards [facility] COMP. METABOLIC PANEL ([id number]) 2023-04-17 02:04:00 Roberto Richards [facility] CBC WITH DIFF 2023-04-17 02:04:00 Roberto Richards [facility] PROTHROMBIN TIME / INR 2023-04-17 02:04:00 Richard Richards [facility] ACTIVATED PARTIAL THRMPLAS MARCIO 2023-04-17 02:04:00 Roberto Richards [facility] URINALYSIS 2023-04-17 02:04:00 Roberto Richards [facility] N-TERMINAL PRO-BNP 2023-04-17 02:04:00 Roberto Richards [facility] URINE DRUG (IMMUNOASSAY) - COMPREHENSIVE DRUG SCREEN W/O REFLEX 2023-04-17 02:04:00 Roberto Richards [facility] CONSENT/REFUSAL FOR DIAGNOSIS AND TREATMENT 2023-04-17 01:22:36 Doctor Unassigned, [place] [facility] URINALYSIS 2023-04-09 01:02:00 Saleem Edward [facility] LIPASE 2023-04-08 23:15:00 Saleem Edward [facility] MAGNESIUM 2023-04-08 23:15:00 Saleem Edward [facility] TROPONIN I 2023-04-08 23:15:00 Saleem Edward [facility] COMP. METABOLIC PANEL ([id number]) 2023-04-08 23:15:00 Saleem Edward Eleni [facility] CBC WITH DIFF 2023-04-08 23:15:00 Saleem Edward [facility] CONSENT/REFUSAL FOR DIAGNOSIS AND TREATMENT 2023-04-08 21:57:42 Doctor Unassigned, [place] [facility] CT ABDOMEN PELVIS W CONTRAST 2023-03-10 03:38:58 Roberto Richards [facility] POCT TEST 2023-03-10 02:51:00 Alberta Richards [facility] URINALYSIS 2023-03-10 01:49:00 Roberto Richards [facility] LIPASE 2023-03-10 01:46:00 Roberto Richards [facility] COMP. METABOLIC PANEL ([id number]) 2023-03-10 01:46:00 Roberto Richards [facility] CBC WITH DIFF 2023-03-10 01:46:00 Roberto Richards [facility] CONSENT/REFUSAL FOR DIAGNOSIS AND TREATMENT 2023-03-10 01:36:24 Doctor Unassigned, [place] [facility] CONSENT/REFUSAL FOR DIAGNOSIS AND TREATMENT 2023-03-10 01:14:40 Doctor Unassigned, [place] [facility] CT ABDOMEN PELVIS W CONTRAST 2023-03-02 05:16:35 Bob Garcia [facility] POCT TEST 2023-03-02 03:26:00 Bob Garcia [facility] LIPASE 2023-03-02 03:23:00 Bob Garcia [facility] COMP. METABOLIC PANEL ([id number]) 2023-03-02 03:23:00 Bob Garcia [facility] CBC WITH DIFF 2023-03-02 03:23:00 Bob Garcia [facility] URINALYSIS 2023-03-02 03:23:00 Bob Garcia [facility] CONSENT/REFUSAL FOR DIAGNOSIS AND TREATMENT 2023-03-02 00:22:44 Doctor Unassigned, [place] [facility] CONSENT/REFUSAL FOR DIAGNOSIS AND TREATMENT 2023-02-18 03:44:46 Doctor Unassigned, [place] [facility] LIPASE 2023-02-17 09:28:00 Kylah [facility] HEPATIC FUNCTION PANEL ([id number]) (ALB,T.PRO,BILI T,BU/BC,ALT,AST,ALK PHOS) 2023-02-17 09:28:00 Kylah [facility] BASIC METABOLIC PANEL (NA, K, CL, CO2, GLUCOSE, BUN, CREATININE, CA) 2023-02-17 09:28:00 [facility] 2023-02-17 09:28:00 Zay Montero [facility] LIPASE 2023-02-16 18:24:00 [facility] ([id number]) (ALB,T.PRO,BILI T,BU/BC,ALT,AST,ALK PHOS) 2023-02-16 18:24:00 Kylah [facility] BASIC METABOLIC PANEL (NA, K, CL, CO2, GLUCOSE, BUN, CREATININE, CA) 2023-02-16 18:24:00 Kylah [facility] CBC WITH DIFF 2023-02-16 18:23:[facility] W [facility]AST 2023-02-15 23:29:00 Leeanne Wise [facility] LIPASE 2023-02-15 21:45:00 Leeanne Wise [facility] COMP. METABOLIC PANEL ([id number]) 2023-02-15 21:45:00 Leeanne Wise [facility] CBC WITH DIFF 2023-02-15 21:45:00 Leeanne Wise [facility] D-DIMER 2023-02-15 19:55:00 Leeanne Wise [facility] URINALYSIS 2023-02-15 19:50:00 Leeanne Wise [facility] RAPID INFLUENZA A/B 2023-02-15 19:50:00 Leeanne Wise [facility] COVID-19 (ID NOW RAPID TESTING) 2023-02-15 19:50:00 Leeanne Wise [facility] XR CHEST 1 VW 2023-02-15 19:38:00 Leeanne Wise [facility] ASSIGNMENT OF BENEFITS 2023-02-15 19:26:58 Docto r Unassigned, [place] [facility] HB ECG ROUTINE & RHYTHM STRIP 2023-02-15 19:07:40 Leeanne Wise [facility] NOTICE OF PRIVACY PRACTICES 2023-02-15 18:24:07 Doctor Unassigned, [place] [facility] CONSENT/REFUSAL FOR DIAGNOSIS AND TREATMENT 2023-02-15 18:23:04 Doctor Unassigned, [place] [facility] TROPONIN I 2022-01-10 00:32:00 Melida Long[facility] TROPONIN I 2022-01-09 22:17:00 Melida Long[facility] BASIC METABOLIC PANEL (NA, K, CL, CO2, GLUCOSE, BUN, CREATININE, CA) 2022-01-09 22:17:00 Melida Longoria [facility] CBC WITH DIFF 2022-01-09 22:17:00 Melida Lonogria [facility] N-TERMINAL PRO-BNP 2022-01-09 22:17:00 Melida Longoria [facility] XR CHEST 1 VW 2022-01-09 22:11:00 Melida Longoria [facility] CONSENT/REFUSAL FOR DIAGNOSIS AND TREATMENT 2022-01-09 21:34:15 Doctor Unassigned, [place] [facility] TROPONIN I 2021-12-14 05:39:00 Wil Mcqueen [facility] XR CHEST 1 VW 2021-12-14 04:39:00 Wil Mcqueen [facility] POCT TEST 2021-12-14 04:20:00 Wil Mcqueen [facility] URINALYSIS 2021-12-14 03:57:00 Wil Mcqueen [facility] LIPASE 2021-12-14 03:43:00 [facility] TROPONIN I 2021-12-14 03:43:00 Wil Mcqueen [facility] FREE T4 2021-12-14 03:43:00 Wil Mcqueen [facility] THYROID STIMULATING HORMONE 2021-12-14 03:43:00 Wil Mcqueen [facility] COMP. METABOLIC PANEL ([id number]) 2021-12-14 03:43:00 Wil Mcqueen [facility] CBC WITH DIFF 2021-12-14 03:43:00 Wil Mcqueen [facility] FREE T3 2021-12-14 03:43:00 Wil Mcqueen [facility] CONSENT/REFUSAL FOR DIAGNOSIS AND TREATMENT 2021-12-14 02:58:21 Doctor Unassigned, [place] [facility] TROPONIN I 2021-11-12 03:04:00 Apple Wang [facility] POCT TEST 2021-11-12 02:56:00 Tra Wang [facility] URINE DRUG (IMMUNOASSAY) - COMPREHENSIVE DRUG SCREEN 2021-11-12 02:30:00 Apple Wang [facility] URINALYSIS 2021-11-12 02:30:00 Apple Wang [facility] XR CHEST 2 VW 2021-11-12 01:45:03 Apple Wang [facility] LIPASE 2021-11-12 01:34:00 Apple Wang [facility] TROPONIN I 2021-11-12 01:34:00 Apple Wang [facility] COMP. METABOLIC PANEL ([id number]) 2021-11-12 01:34:00 Apple Wang [facility] CBC WITH DIFF 2021-11-12 01:34:00 Apple Wang [facility] N-TERMINAL PRO-BNP 2021-11-12 01:34:00 Mckinley Wang [facility] CONSENT/REFUSAL FOR DIAGNOSIS AND TREATMENT 2021-11-12 00:36:34 Doctor Unassigned, [place] [facility] CT ABDOMEN PELVIS W CONTRAST 2021-09-12 02:49:43 Apple Wang [facility] COVID-19 (ID NOW RAPID TESTING) 2021-09-12 02:23:00 Apple Wang [facility] POCT TEST 2021-09-12 02:21:00 Tra Wang [facility] POCT TEST 2021-09-12 01:45:00 Bob Garcai [facility] URINALYSIS 2021-09-12 01:43:00 Bob Garcia [facility] LIPASE 2021-09-12 01:40:00 Bob Garcia [facility] COMP. METABOLIC PANEL ([id number]) 2021-09-12 01:40:00 Bob Garcia [facility] CBC WITH DIFF 2021-09-12 01:40:00 Bob Garcia [facility] CONSENT/REFUSAL FOR DIAGNOSIS AND TREATMENT 2021-09-12 01:26:55 Doctor Unassigned, [place] [facility] XR LUMBAR SPINE 1 VW 2021-08-15 07:03:00 Angeles Garcia i [facility] URINALYSIS 2021-08-15 06:35:00 Bob Garcia [facility] POCT TEST 2021-08-15 06:35:00 Bob Garcia [facility] NOTICE OF PRIVACY PRACTICES 2021-08-15 06:01:56 Doctor Unassigned, [place] [facility] CONSENT/REFUSAL FOR DIAGNOSIS AND TREATMENT 2021-08-15 05:25:54 Doctor Unassigned, [place] [facility] TROPONIN I 2021-05-28 07:50:00 Cem Choi [facility] D-DIMER 2021-05-28 07:05:00 Cem Choi [facility] XR CHEST 2 VW 2021-05-28 05:46:00 Cem Choi [facility] POCT TEST 2021-05-28 05:32:00 Cem Choi [facility] LIPASE 2021-05-28 05:29:00 Cem Choi [facility] TROPONIN I 2021-05-28 05:29:00 Cem Choi [facility] COMP. METABOLIC PANEL ([id number]) 2021-05-28 05:29[facility] 2021-05-28 05:29:00 Cem Choi [facility] N-TERMINAL PRO-BNP 2021-05-28 05:29:00 Cem Choi [facility] COVID-19 (ID NOW RAPID TESTING) 2021-05-28 05:29:00 Cem Choi [facility] TROPONIN I 2021-04-08 10:01:00 Apple Page [facility] BASIC METABOLIC PANEL (NA, K, CL, CO2, GLUCOSE, BUN, CREATININE, CA) 2021-04-08 10:01:00 Apple Page [facility] CBC WITH DIFF 2021-04-08 10:01:00 Apple Page [facility] TROPONIN I 2021-04-08 04:12:00 Apple Page [facility] XR CHEST 1 VW 2021-04-07 22:33:33 Roberto Richards [facility] LIPASE 2021-04-07 21:52:00 Roberto Richards [facility] MAGNESIUM 2021-04-07 21:52:00 Apple Page [facility] TROPONIN I 2021-04-07 21:52:00 Roberto Richards [facility] THYROID STIMULATING HORMONE 2021-04-07 21:52:00 Apple Page [facility] COMP. METABOLIC PANEL ([id number]) 2021-04-07 21:52:00 Roberto Richards [facility] LIPID PANEL ([id number])(TOTAL CHOLESTEROL, TRIGLYCERIDES, HDL) 2021-04-07 21:52:00 Apple Page [facility] CBC WITH DIFF 2021-04-07 21:52:00 Roberto Richards [facility] GLYCOSYLATED HEMOGLOBIN (A1C) 2021-04-07 21:52:00 Apple Page [facility] PROTHROMBIN TIME / INR 2021-04-07 21:52:00 Richard Richards [facility] ACTIVATED PARTIAL THRMPLAS MARCIO 2021-04-07 21:52:00 Roberto Richards [facility] N-TERMINAL PRO-BNP 2021-04-07 21:52:00 Roberto Richards [facility] COVID-19 (ID NOW RAPID TESTING) 2021-04-07 21:51:00 Roberto Richards [facility] HB ECG ROUTINE & RHYTHM STRIP 2021-04-07 [facility]:38[facility] FOR [facility]AG[facility]IS AND TREATMENT 2021-04-07 21:17:47 Doctor Unassigned, [place] [facility] CT ABDOMEN PELVIS WO CONTRAST 2021-01-12 08:10:17 Klaudia Narvaez [facility] POCT TEST 2021-01-12 08:02:00 Jaquan Narvaez [facility] URINALYSIS 2021-01-12 07:58:00 Klaudia Narvaez [facility] COMP. METABOLIC PANEL ([id number]) 2021-01-12 07:56:00 Klaudia Narvaez [facility] CBC WITH DIFF 2021-01-12 07:56:00 Klaudia Narvaez [facility] TROPONIN I 2020-12-11 00:47:00 [facility]W 2020-12-10 22:40:57 Bal Hassan [facility] POCT TEST 2020-12-10 22:32:00 Suzanna Hassan [facility] URINALYSIS 2020-12-10 22:30:00 [facility] 2020-12-10 22:24[facility] 2020-12-10 22:24:00 Mo [facility] HEPATIC FUNCTION PANEL ([id number]) (ALB,T.PRO,BILI T,BU/BC,ALT,AST,ALK PHOS) 2020-12-10 22:24:00 Mo [facility] BASIC METABOLIC PANEL (NA, K, CL, CO2, GLUCOSE, BUN, CREATININE, CA) 2020-12-10 22:24:00 [facility] 2020-12-10 22:24:00 Bal Hassan [facility] D-DIMER 2020-12-10 22:24:00 Mo [facility] N-TERMINAL PRO-BNP 2020-12-10 22:24:00 Mirtha Hassan [facility] POCT TEST 2020-12-04 21:18:[facility] 2020-12-04 21:17:00 [facility] LIP[facility] 2020-12-04 20:20:00 Hernan [facility] TROPONIN I 2020-12-04 20:20:00 Hernan [facility] HEPATIC FUNCTION PANEL ([id number]) (ALB,T.PRO,BILI T,BU/BC,ALT,AST,ALK PHOS) 2020-12-04 20:20:00 [facility] BASIC METABOLIC PANEL (NA, K, CL, CO2, GLUCOSE, BUN, CREATININE, [place]) 2020-12-04 20:20:00 [facility] 2020-12-04 20:20:00 [facility] CHEST 1 VW 2020-12-04 20:16:54 [facility] XR ANKLE 3+ VW LEFT 2020-12-04 20:16:54 [facility] CONSENT/REFUSAL FOR DIAGNOSIS AND TREATMENT 2020-12-04 19:43:45 Doctor Unassigned, [place] [facility] XR CHEST 1 VW 2020-11-04 02:24:02 Bob Garcia [facility] URINE DRUG (IMMUNOASSAY) - 4 ER PANEL 2020-11-04 02:19:00 Bob Garcia [facility] URINALYSIS 2020-11-04 02:19:00 Bob Garcia [facility] LIPASE 2020-11-04 02:16:00 Bob Garcia [facility] TROPONIN I 2020-11-04 02:16:00 Bob Garcia [facility] COMP. METABOLIC PANEL (64593) 2020-11-04 02:16:00 Bob Garcia [facility] CBC WITH DIFF 2020-11-04 02:16:00 Bob Garcia [facility] PROTHROMBIN TIME / INR 2020-11-04 02:16:00 Lucia Garcia [facility] ACTIVATED PARTIAL THRMPLAS MARCIO 2020-11-04 02:16:00 Bob Garcia [facility] CONSENT/REFUSAL FOR DIAGNOSIS AND TREATMENT 2020-11-04 01:11:16 Doctor Unassigned, [place] [facility] XR CHEST 1 VW 2020-09-17 17:32:21 Drever, Leeanne G [facility] RAPID STREP SCREEN FOR GROUP A 2020-09-17 16:31:00 Leeanne Wise [facility] COVID-19 (ID NOW RAPID TESTING) 2020-09-17 16:31:00 Leeanne Wise [facility] NOTICE OF PRIVACY PRACTICES 2020-09-17 15:47:38 Doctor Unassigned, [place] [facility] CONSENT/REFUSAL FOR DIAGNOSIS AND TREATMENT 2020-09-17 15:47:07 Doctor Unassigned, [place] [facility] XR FOREARM 2 VW LEFT 2020-09-07 06:59:53 Saleem Edward [facility] XR HAND 3+ VW LEFT 2020-09-07 06:59:53 Saleem Edward [facility] NOTICE OF PRIVACY PRACTICES 2020-09-07 06:06:09 Doctor Unassigned, [place] [facility] CONSENT/REFUSAL FOR DIAGNOSIS AND TREATMENT 2020-09-07 06:03:10 Doctor Unassigned, [place] [facility] CT ABDOMEN PELVIS W CONTRAST 2020-08-28 09:16:08 Bob Garcia [facility] POCT TEST 2020-08-28 08:45:00 Bob Garcia [facility] URINALYSIS 2020-08-28 08:43:00 Bob Garcia [facility] LIPASE 2020-08-28 08:09:00 Bob Garcia [facility] COMP. METABOLIC PANEL (60756) 2020-08-28 08:09:00 Bob Garcia [facility] CBC WITH DIFF 2020-08-28 08:09:00 Bob Garcia [facility] XR CHEST 1 VW 2020-08-14 18:10:03 [facility] LIPASE 2020-08-14 17:58:00 [facility] TROPONIN I 2020-08-14 17:58:00 [facility] acute hospital COMP. METABOLIC PANEL ([id number]) 2020-08-14 17:58:00 Best Taylor [facility] CBC WITH DIFF 2020-08-14 17:58:00 [facility] acute hospital URINALYSIS 2020-08-14 17:58:00 [facility] LACTIC ACID WHOLE BLOOD 2020-08-14 17:58:00 Sophie Taylor [facility] ADC / LCC - DRUG SCREEN TRIAGE 2020-08-14 17:58:00 Best Taylor [facility] CONSENT/REFUSAL FOR DIAGNOSIS AND TREATMENT 2020-08-14 17:33:16 Doctor Unassigned, [place] [facility] CT ABDOMEN PELVIS WO CONTRAST 2020-08-11 04:11:07 Best Taylor [facility] XR CHEST 1 VW 2020-08-11 03:56:48 [facility] acute [facility] POCT TEST 2020-08-11 03:10:00 Best Taylor [facility] BLOOD CULTURE SCREEN 2020-08-11 02:01:00 Best Taylor [facility] BLOOD CULTURE SCREEN 2020-08-11 01:45:00 Best Taylor [facility] LIPASE 2020-08-11 01:45:00 [facility] acute [facility] TROPONIN I 2020-08-11 01:45:00 [facility] acute [facility] HEPATIC FUNCTION PANEL (12508) (ALB,T.PRO,BILI T,BU/BC,ALT,AST,ALK PHOS) 2020-08-11 01:45:00 Best Taylor [facility] BASIC METABOLIC PANEL (NA, K, CL, CO2, GLUCOSE, BUN, CREATININE, CA) 2020-08-11 01:45:00 Best Taylor [facility] CBC WITH DIFF 2020-08-11 01:45:00 [facility] URINALYSIS 2020-08-11 01:45:00 [facility] LACTIC ACID WHOLE BLOOD 2020-08-11 01:45:00 Sophie Taylor [facility] COVID-19 (ID NOW RAPID TESTING) 2020-08-11 01:45:00 Best Taylor [facility] CONSENT/REFUSAL FOR DIAGNOSIS AND TREATMENT 2020-08-11 00:12:54 Doctor Unassigned, [place] [facility] XR FOREARM 2 VW LEFT 2020-08-07 14:03:06 Unique Richards [facility] COVID-19 (ID NOW RAPID TESTING) 2020-08-07 13:35:00 Roberto Richards [facility] NOTICE OF PRIVACY PRACTICES 2020-08-07 13:13:25 Doctor Unassigned, [place] [facility] CONSENT/REFUSAL FOR DIAGNOSIS AND TREATMENT 2020-08-07 13:11:06 Doctor Unassigned, [place] [facility] CONSENT/REFUSAL FOR DIAGNOSIS AND TREATMENT 2020-08-07 13:10:57 Doctor Unassigned, [place] [facility] TROPONIN I 2020-07-01 02:03:00 [facility] PO[facility] TEST 2020-07-01 00:51:00 Jessica [facility] URINALYSIS 2020-07-01 00:48:00 [facility] CBC WITH DIFF 2020-07-01 00:12:00 Abdias [facility] EXTRA TUBE LT. BLUE 2020-07-01 00:12:00 [facility] LIPASE 2020-07-01 00:09:00 Jessica [facility] TROPONIN I 2020-07-01 00:09:00 Jessica [facility] BASIC METABOLIC PANEL (NA, K, CL, CO2, GLUCOSE, BUN, CREATININE, CA) 2020-07-01 00:09:00 Jessica [facility] ADC,CLC OR LCC ONLY - INFLUENZA A & B DIRECT ANTIGEN 2020-07-01 00:09:00 Jessica, Cynise [facility] N-TERMINAL PRO-BNP 2020-07-01 00:09:00 Abdias Robertson [facility] XR CHEST 1 VW 2020-07-01 00:07:07 [facility] PRACTICES 2020-06-30 23:27:46 Doctor Unassigned, [place] [facility] CT CERVICAL SPINE WO CONTRAST 2020-06-28 23:12:00 Klaudia Narvaez [facility] CONSENT/REFUSAL FOR DIAGNOSIS AND TREATMENT 2020-06-28 21:52:44 Doctor Unassigned, [place] [facility] POCT TEST 2020-06-13 01:50:00 Leeanne Wise [facility] XR CHEST 1 VW 2020-06-13 01:18:17 Leeanne Wise [facility] URINALYSIS 2020-06-13 00:34:[address] [facility] Kristin [facility] COVID-19 (ID NOW RAPID TESTING) 2020-06-13 00:34:00 Leeanne Wise [facility] LIPASE 2020-06-13 00:33:[address] [facility] Kristin [facility] TROPONIN I 2020-06-13 00:33:[address] [facility] Kristin [facility] HEPATIC FUNCTION PANEL (32069) (ALB,T.PRO,BILI T,BU/BC,ALT,AST,ALK PHOS) 2020-06-13 00:33:00 Leeanne Wise [facility] BASIC METABOLIC PANEL (NA, K, CL, CO2, GLUCOSE, BUN, CREATININE, CA) 2020-06-13 00:33:00 Leeanne Wise [facility] CBC WITH DIFF 2020-06-13 00:33:00 Leeanne Wise [facility] D-DIMER 2020-06-13 00:33:00 Leeanne Wise [facility] CONSENT/REFUSAL FOR DIAGNOSIS AND TREATMENT 2020-06-12 23:27:48 Doctor Unassigned, [place] [facility] COVID-19 (ID NOW RAPID TESTING) 2020-05-16 23:50:00 Bushra Rios [facility] LIPASE 2020-05-16 23:21:00 [facility] FUN[facility] (16682) (ALB,T.PRO,BILI T,BU/BC,ALT,AST,ALK PHOS) 2020-05-16 23:21:00 Bushra Rios [facility] BASIC METABOLIC PANEL (NA, K, CL, CO2, GLUCOSE, BUN, CREATININE, CA) 2020-05-16 23:21:00 Bushra Rios [facility] CBC WITH DIFF 2020-05-16 23:21:00 Bush[facility]ios [facility] AC[facility]AM[facility]EN 2020-05-15 07:42:00 Roberto Richards [facility] CT ABDOMEN PELVIS W CONTRAST 2020-05-15 06:56:53 Roberto Richards [facility] CT HEAD WO CONTRAST 2020-05-15 06:56:27 Alberta Richards [facility] POCT TEST 2020-05-15 05:53:00 Alberta Richards [facility] LIPASE 2020-05-15 05:52:00 Roberto Richards [facility] acute hospital HEPATIC FUNCTION PANEL (69928) (ALB,T.PRO,BILI T,BU/BC,ALT,AST,ALK PHOS) 2020-05-15 05:52:00 Roberto Richards [facility] BASIC METABOLIC PANEL (NA, K, CL, CO2, GLUCOSE, BUN, CREATININE, CA) 2020-05-15 05:52:00 Roberto Richards [facility] ETHANOL 2020-05-15 05:52:00 Roberto Richards [facility] acute hospital CBC WITH DIFF 2020-05-15 05:52:00 Roberto Richards [facility] PROTHROMBIN TIME / INR 2020-05-15 05:52:00 Richard Richards [facility] ACTIVATED PARTIAL THRMPLAS MARCIO 2020-05-15 05:52:00 Roberto Richards [facility] URINALYSIS 2020-05-15 05:52:00 Roberto Richards [facility] acute hospital ADC / LCC - DRUG SCREEN TRIAGE 2020-05-15 05:52:00 Roberto Richards [facility] NOTICE OF PRIVACY PRACTICES 2020-05-15 05:12:38 Doctor Unassigned, [place] [facility] CONSENT/REFUSAL FOR DIAGNOSIS AND TREATMENT 2020-05-15 05:12:26 Doctor Unassigned, [place] [facility] Encounters Start Date/Time End Date/Time Encounter Type Admission Type Attending [facility] Care Department Encounter ID Source 2025-02-15 10:00:00 2025-02-15 10:00:00 Outpatient CHRISTINA PAGE KELLEE DORMAN [id number] [facility] 2025-01-22 10:20:00 2025-01-22 10:20:00 Outpatient AGUEDA CYNTHIA KELLEE DORMAN [id number] [facility] 2024-12-17 10:00:00 2024-12-17 10:00:00 Outpatient SAIRAKESHIANEO FERNANDES KELLEE DORMAN [id number] [facility] 2024-12-02 13:30:00 2024-12-02 13:30:00 Outpatient RIDDHI MONTES [id number] [facility] 2024-12-02 09:30:00 2024-12-02 09:30:00 Outpatient CATHY STRICKLAND [id number] [facility] 2024-11-26 17:54:00 2024-11-27 13:31:00 Hospital Encounter ALEXX WAGNER [facility] [id number] [facility] 2024-11-27 00:00:00 2024-11-27 00:00:00 Outpatient KELLEE DORMAN [id number] [facility] 2024-11-20 00:00:00 2024-11-20 00:00:00 Outpatient RIDDHI MONTES [id number] [facility] 2024-11-18 13:15:00 2024-11-18 13:15:00 Outpatient TYLER MAN [id number] [facility] 2024-11-16 00:00:00 2024-11-16 00:00:00 Outpatient RIDDHI MONTES [id number] [facility] 2024-11-15 10:15:00 2024-11-15 10:15:00 Outpatient NEIL SHULTZ KELLEE DORMAN [id number] [facility] 2024-11-14 20:45:00 2024-11-14 22:18:00 Emergency X BUSHRA RIOS SANDRA [facility] [id number] [facility] 2024-11-14 20:45:00 2024-11-14 22:18:00 Emergency Bushra Rios [facility] 1.2.840.114 350.1.13.10 4.2.7.2.686 [id number] [facility] 2024-11-14 00:00:00 2024-11-14 00:00:00 Outpatient MARLINLee RIDDHI DORMAN [id number] [facility] 2024-11-10 19:56:00 2024-11-11 01:04:00 Emergency X BOB GARCIA WAKILI [facility] E[facility] [id number] [facility] 2024-11-10 19:56:00 2024-11-11 01:04:00 Emergency Bob Garcia [facility] 1.2.840.114 350.1.13.10 4.2.7.2.686 [id number] [facility] 2024-11-10 13:30:00 2024-11-10 13:30:00 Outpatient MARLINLee RIDDHI DORMAN [id number] [facility] 2024-11-10 13:30:00 2024-11-10 13:30:00 Outpatient MARLINLee RIDDHI DORMAN [id number] [facility] 2024-11-05 00:00:00 2024-11-05 09:33:29 Transition of Care Piper Mercedes Antoinette [address] 1.2.840.114 350.1.13.10 4.2.7.2.686 [id number] [facility] 2024-10-31 21:29:00 2024-11-04 15:00:00 Inpatient X CRIS ETTAKAUR SEGUNDO [facility] [id number] [facility] 2024-10-31 21:29:00 2024-11-04 15:00:00 Hospital Encounter JaclynchuyBob Jelani Al Hemyari, Elliott Alvarado [facility] 1.2.840.114 350.1.13.10 4.2.7.2.686 [id number] [facility] 2024-11-03 18:20:00 2024-11-03 19:20:00 Surgery Dane Jurado [facility] 1..840.114 350.1.13.10 4.2.7.2.686 [id number] [facility] 2024-11-02 00:00:00 2024-11-02 00:00:00 Outpatient KELLEE DORMAN [id number] [facility] 2024-11-02 00:00:00 2024-11-02 00:00:00 Outpatient KELLEE DORMAN [id number] [facility] 2024-10-28 14:15:00 2024-10-28 14:15:00 Outpatient TYLER MAN [id number] [facility] 2024-10-26 11:30:00 2024-10-26 11:30:00 Outpatient FLORINDA REYES [id number] [facility] 2024-10-23 20:18:00 2024-10-23 23:54:00 Emergency X JUANJOSE BARKER [facility] [id number] [facility] 2024-10-23 20:18:00 2024-10-23 23:54:00 Emergency VasJuanjose cr [facility] 1..840.114 350.1.13.10 4.2.7.2.686 [id number] [facility] 2024-10-23 10:30:00 2024-10-23 10:30:00 Outpatient RIDDHI MONTES KELLEE DORMAN [id number] [facility] 2024-10-19 00:00:00 2024-10-19 00:00:00 Outpatient RIDDHI MONTES KELLEE DORMAN [id number] [facility] 2024-10-14 00:00:00 2024-10-14 00:00:00 Outpatient KELLEE DORMAN [id number] [facility] 2024-10-12 22:30:00 2024-10-13 02:45:00 Emergency X BOB GARCIA WAKILI [facility] [id number] [facility] 2024-10-12 22:30:00 2024-10-13 02:45:00 Emergency Bob Garcia [facility] 1.2.840.114 350.1.13.10 4.2.7.2.686 [id number] [facility] 2024-09-23 13:30:00 2024-09-23 13:30:00 Outpatient GISELLE OSORIO [id number] [facility] 2024-09-23 00:00:00 2024-09-23 00:00:00 Outpatient KELLEE DORMAN [id number] [facility] 2024-09-17 00:00:00 2024-09-17 00:00:00 Outpatient MD KELLEE CHOI [id number] [facility] 2024-09-15 11:15:00 2024-09-15 11:15:00 Outpatient KELLEE DORMAN [id number] [facility] 2024-09-15 10:45:00 2024-09-15 10:45:00 Outpatient [facility]OR[facility] [id number] [facility] 2024-09-15 10:15:00 2024-09-15 10:15:00 Outpatient KELLEE DORMAN [id number] [facility] 2024-09-15 07:30:00 2024-09-15 07:30:00 Outpatient KELLEE KELLEE [id number] [facility] 2024-09-15 00:00:00 2024-09-15 00:00:00 Outpatient GISELLE OSORIO KELLEE DORMAN [id number] [facility] 2024-09-06 00:00:00 2024-09-06 00:00:00 Outpatient RIDDHI MONTES KELLEE DORMAN [id number] [facility] 2024-09-01 00:00:00 2024-09-01 00:00:00 Outpatient JYOTI RIDDHI KELLEE DORMAN [id number] [facility] 2024-08-27 00:00:00 2024-08-27 00:00:00 Outpatient SMITHCONRADO [id number] [facility] 2024-08-20 16:45:00 2024-08-20 16:45:00 Outpatient JÚNIOR FARRELL KELLEE DORMAN [id number] [facility] 2024-08-18 10:00:00 2024-08-18 10:00:00 Outpatient RIDDHI MONTES KELLEE DORMAN [id number] [facility] 2024-08-05 15:30:00 2024-08-05 15:30:00 Outpatient SMITHCONRADO KELLEE DORMAN [id number] [facility] 2024-08-03 00:00:00 2024-08-03 00:00:00 Outpatient JYOTI RIDDHI KELLEE DORMAN [id number] [facility] 2024-07-18 22:48:00 2024-07-19 01:24:00 Emergency X Saleem EDWARD K [facility] [id number] [facility] 2024-07-18 22:48:00 2024-07-19 01:24:00 Emergency Saleem Edward [facility] 1.2.840.114 350.1.13.10 4.2.7.2.686 [id number] [facility] 2024-07-15 00:00:00 2024-07-15 00:00:00 Outpatient RIDDHI MONTES KELLEE DORMAN [id number] [facility] 2024-07-10 00:00:00 2024-07-10 00:00:00 Outpatient RIDDHI MONTES KELLEE DORMAN [id number] [facility] 2024-07-09 00:00:00 2024-07-09 00:00:00 Outpatient RADIOLOGY, DEPT KELLEE DORMAN [id number] [facility] 2024-07-09 00:00:00 2024-07-09 00:00:00 Outpatient RADIOLOGY, DEPT KELLEE DORMAN [id number] [facility] 2024-07-07 00:00:00 2024-07-07 00:00:00 Outpatient MD KELLEE CHOI [id number] [facility] 2024-07-06 07:00:00 2024-07-06 07:00:00 Outpatient KELLEE DORMAN [id number] [facility] 2024-07-06 00:00:00 2024-07-06 00:00:00 Outpatient GISELLE OSORIO [id number] [facility] 2024-07-03 19:56:00 2024-07-04 01:32:00 Emergency X SANDY GARCIA SHINTA [facility] E[facility] [id number] [facility] 2024-07-03 19:56:00 2024-07-04 01:32:00 Emergency Sandy Garcia [facility] 1..840.114 350.1.13.10 4.2.7.2.686 [id number] [facility] 2024-06-21 02:04:00 2024-06-21 02:59:00 Emergency X SANDY GARCIA SHINTA [facility] ERT [id number] [facility] 2024-06-21 02:04:00 2024-06-21 02:59:00 Emergency Jeff Garciata [facility] 1..840.114 350.1.13.10 4.2.7.2.686 [id number] [facility] 2024-06-20 00:00:00 2024-06-20 00:00:00 Outpatient RIDDHI MONTES [id number] [facility] 2024-06-18 00:00:00 2024-06-18 00:00:00 Outpatient GISELLE OSORIO [id number] [facility] 2024-06-17 15:30:00 2024-06-17 15:30:00 Outpatient KELLEE DORMAN [id number] [facility] 2024-06-14 21:28:00 2024-06-15 00:28:00 Emergency X SANDY GARCIA SHINTA [facility] E[facility] [id number] [facility] 2024-06-14 21:28:00 2024-06-15 00:28:00 Emergency Sandy Garcia [facility] 1.2.840.114 350.1.13.10 4.2.7.2.686 [id number] [facility] 2024-06-06 21:56:00 2024-06-07 02:40:00 Emergency X BOB GARCIA WAKILI [facility] E[facility] [id number] [facility] 2024-06-06 21:56:00 2024-06-07 02:40:00 Emergency Bob Garcia [facility] 1.2.840.114 350.1.13.10 4.2.7.2.686 [id number] [facility] 2024-06-02 00:00:00 2024-06-02 00:00:00 Outpatient RIDDHI MONTES [id number] [facility] 2024-05-28 13:00:00 2024-05-28 13:00:00 Outpatient GISELLE OSORIO [id number] [facility] 2024-05-20 00:00:00 2024-05-20 00:00:00 Outpatient RIDDHI MONTES [id number] [facility] 2024-05-19 11:44:00 2024-05-19 13:35:00 Emergency X RAFAL WRIGHT [facility] ERT [id number] [facility] 2024-05-19 11:44:00 2024-05-19 13:35:00 Emergency Rafal Wright [facility] 1.2.840.114 350.1.13.10 4.2.7.2.686 [id number] [facility] 2024-05-18 11:15:00 2024-05-18 11:15:00 Outpatient LEYLA KELLEE DORMAN [id number] [facility] 2024-05-18 10:30:00 2024-05-18 10:30:00 Outpatient JYOTI RIDDHI KELLEE DORMAN [id number] [facility] 2024-05-17 18:30:00 2024-05-17 22:19:00 Emergency Tammy Roy [facility] 1.2.840.114 350.1.13.10 4.2.7.2.686 [id number] [facility] 2024-05-13 18:04:00 2024-05-13 20:42:00 Emergency ER CHACE KERNEN [facility] [id number] [facility] 2024-05-12 00:00:00 2024-05-12 00:00:00 Outpatient RIDDHI MONTES KELLEE DORMAN [id number] [facility] 2024-05-07 18:47:00 2024-05-07 21:36:00 Emergency Saleem Edward [facility] 1.2.840.114 350.1.13.10 4.2.7.2.686 [id number] [facility] 2024-04-22 09:15:00 2024-04-22 09:15:00 Outpatient FARTUN GILLESPIE [id number] [facility] 2024-04-15 10:30:00 2024-04-15 10:30:00 Outpatient RIDDHI MONTES KELLEE DORMAN [id number] [facility] 2024-04-12 00:00:00 2024-04-12 00:00:00 Outpatient JYOTI RIDDHI DORMAN [id number] [facility] 2024-04-10 16:20:00 2024-04-10 18:53:00 Emergency ER TAVARES MG JR [facility] [id number] [facility] 2024-04-10 16:20:00 2024-04-10 18:53:00 Departed Emergency Room [facility] [id number] 85 [facility] 2024-04-08 17:37:00 2024-04-08 20:38:00 Emergency Jacque Rojo [facility] 1.2.840.114 350.1.13.10 4.2.7.2.686 [id number] [facility] 2024-04-08 00:00:00 2024-04-08 00:00:00 Outpatient RIDDHI MONTES KELLEE DORMAN [id number] [facility] 2024-03-12 00:00:00 2024-03-12 00:00:00 Outpatient MARLINLee RIDDHI DORMAN [id number] [facility] 2024-03-06 11:00:00 2024-03-06 11:00:00 Outpatient JYOTI RIDDHI DORMAN [id number] [facility] 2024-02-06 11:00:00 2024-02-06 11:00:00 Outpatient GISELLE OSORIO [id number] [facility] 2024-02-06 10:40:00 2024-02-06 10:40:00 Outpatient KELLEE DORMAN [id number] [facility] 2024-02-06 00:00:00 2024-02-06 00:00:00 Outpatient HUNDL, RIDDHI KELLEE DORMAN [id number] [facility] 2024-02-05 00:00:00 2024-02-05 00:00:00 Outpatient HUNDL, RIDDHI KELLEE DORMAN [id number] [facility] 2024-01-14 09:30:00 2024-01-14 09:30:00 Outpatient HUNDL, RIDDHI DORMAN [id number] [facility] 2024-01-09 00:00:00 2024-01-09 00:00:00 Outpatient HUNDL, RIDDHI DORMAN [id number] [facility] 2024-01-06 00:00:00 2024-01-06 00:00:00 Outpatient HUNDL, RIDDHI DORMAN [id number] [facility] 2024-01-03 00:00:00 2024-01-03 00:00:00 Outpatient HUNDL, RIDDHI KELLEE DORMAN [id number] [facility] 2024-01-02 14:00:00 2024-01-02 14:00:00 Outpatient HUNDL, RIDDHI KELLEE DORMAN [id number] [facility] 2023-12-13 09:30:00 2023-12-13 09:30:00 Outpatient HUNDL, RIDDHI DORMAN [id number] [facility] 2023-12-09 00:00:00 2023-12-09 00:00:00 Outpatient HUNDL, RIDDHI KELLEE DORMAN [id number] [facility] 2023-12-05 00:00:00 2023-12-05 00:00:00 Outpatient HUNDL, RIDDHI DORMAN [id number] Kellee Seybold 2023-12-03 11:45:00 2023-12-03 11:45:00 Outpatient MONSTERGerman KELLEE DORMAN [id number] Kellee Seybold 2023-12-03 11:00:00 2023-12-03 11:00:00 Outpatient HUNDL, RIDDHI DORMAN [id number] [facility] 2023-11-26 00:00:00 2023-11-26 00:00:00 Outpatient RIDDHI MONTES [id number] [facility] 2023-10-31 00:00:00 2023-10-31 00:00:00 Outpatient COSMO DORMAN [id number] [facility] 2023-10-31 00:00:00 2023-10-31 00:00:00 Outpatient COSMO DORMAN [id number] [facility] 2023-10-29 14:15:00 2023-10-29 14:15:00 Outpatient LAB90 KELLEE DORMAN [id number] [facility] 2023-10-29 13:30:00 2023-10-29 13:30:00 Outpatient RIDDHI MONTES [id number] [facility] 2023-10-10 21:31:00 2023-10-11 00:43:00 Emergency X SUMAYARATNACHUY BOB [facility] ERT [id number] [facility] 2023-10-10 21:31:00 2023-10-11 00:43:00 Emergency Bob Garcia Raad [facility] 1.2.840.114 350.1.13.10 4.2.7.2.686 [id number] [facility] 2023-08-31 18:02:00 2023-08-31 22:40:00 Emergency ER DEEPAGRACESHERIDAN RAMIREZ [facility] [id number] [facility] 2023-08-31 18:02:00 2023-08-31 22:40:00 emergency [facility] [id number] 2023-07-01 19:50:00 2023-07-01 22:59:00 Emergency X ROBERTO RICHARDS [facility] ERT [id number] [facility] 2023-07-01 19:50:00 2023-07-01 22:59:00 Emergency Roberto Richards [facility] 1.2.840.114 350.1.13.10 4.2.7.2.686 [id number] [id number] [facility] 2023-06-04 23:37:00 2023-06-06 13:30:00 Inpatient ER SHAN BUSCH [facility] [id number] [facility] 2023-06-04 23:37:00 2023-06-06 13:30:00 observatio n encounter [facility] [id number] 2023-05-11 01:16:00 2023-05-13 17:04:00 Inpatient ER RIDDHI MYLES [facility] [id number] [facility] 2023-05-11 01:16:00 2023-05-13 17:04:00 observatio n encounter [facility] [id number] [facility] [id number] 2023-05-10 21:48:00 2023-05-10 21:48:00 Emergency ER AN IRIZARRY [facility] [id number] [facility] 2023-05-09 17:40:00 2023-05-09 20:30:00 Emergency X KLAUDIA NARVAEZ [facility] ERT [id number] [facility] 2023-05-09 17:40:00 2023-05-09 20:30:00 Emergency Klaudia Narvaez [facility] 1.2.840.114 350.1.13.10 4.2.7.2.686 [id number] [id number] [facility] 2023-05-05 21:31:00 2023-05-06 03:15:00 Emergency ER SHERIDAN MCMANUS [facility] [id number] [facility] 2023-05-05 21:31:00 2023-05-06 03:15:00 emergency [facility] [id number] 2023-04-30 17:18:00 2023-04-30 21:20:00 Emergency KLAUDIA MATA [facility] ERT [id number] [facility] 2023-04-30 17:18:00 2023-04-30 21:20:00 Emergency Klaudia Narvaez [facility] 1.2840.114 350.1.13.10 4.2.7.2.686 [id number] [facility] 2023-04-16 20:40:00 2023-04-16 23:10:00 Emergency X ROBERTO RICHARDS [facility] ERT [id number] [facility] 2023-04-16 20:40:00 2023-04-16 23:10:00 Emergency Richard Richardsnell [facility] 1.2840.114 350.1.13.10 4.2.7.2.686 [id number] [facility] 2023-04-08 17:28:00 2023-04-08 21:20:00 Emergency X WAGNER Saleem [facility] ERT [id number] [facility] 2023-04-08 17:28:00 2023-04-08 21:20:00 Emergency Saleem Edward [facility] 1.2840.114 350.1.13.10 4.2.7.2.686 [id number] [id number] [facility] 2023-03-09 20:23:00 2023-03-10 00:20:00 Emergency X RICHARD RICHARDSNELL [facility] ERT [id number] [facility] 2023-03-09 20:23:00 2023-03-10 00:20:00 Emergency Richard Richardsnell [facility] 1.2840.114 350.1.13.10 4.2.7.2.686 [id number] [facility] 2023-03-01 19:35:00 2023-03-02 01:35:00 Emergency X BOB GARCIA [facility] ERT [id number] [facility] 2023-03-01 19:35:00 2023-03-02 01:35:00 Emergency Bob Garcia [facility] 1.2.840.114 350.1.13.10 4.2.7.2.686 [id number] [id number] [facility] 2023-02-17 22:58:00 2023-02-18 02:22:00 Emergency X DAYRON APPLE [facility] ERT [id number] [facility] 2023-02-17 22:58:00 2023-02-18 02:22:00 Emergency PadgettApple [facility] 1.2.840.114 350.1.13.10 4.2.7.2.686 [id number] [id number] [facility] 2023-02-15 13:46:00 2023-02-17 16:14:00 Outpatient X ZAY MONTERO [facility] ALTHEA [id number] [facility] 2023-02-15 13:46:00 2023-02-17 16:14:00 [facility] 1.2.840.114 350.1.13.10 4.2.7.2.686 [id number] [facility] 2022-01-17 10:48:00 2022-01-17 10:48:00 Outpatient CATHIE HUYNH [id number] Heather henriquez [facility] 2022-01-09 16:47:00 2022-01-09 20:28:00 Emergency X MELIDA LONGORIA [facility] ERT [id number] [facility] 2022-01-09 16:47:00 2022-01-09 20:28:00 Emergency Melida Longoria [facility] 1.2.840.114 350.1.13.10 4.2.7.2.686 [id number] 084 [id number] [facility] 2021-12-13 22:16:00 2021-12-14 02:28:00 Emergency X CHARISSE WIL [facility] ERT [id number] [facility] 2021-12-13 22:16:00 2021-12-14 02:28:00 Emergency Saul Mcqueenn Davis [facility] 1.2840.114 350.1.13.10 4.2.7.2.686 [id number] [id number] [facility] 2021-11-11 19:50:00 2021-11-11 23:17:00 Emergency X APPLE WANG [facility] ERT [id number] [facility] 2021-11-11 19:50:00 2021-11-11 23:17:00 Emergency Apple Wang [facility] 1.2.840.114 350.1.13.10 4.2.7.2.686 [id number] [id number] [facility] 2021-11-11 00:00:00 2021-11-11 00:00:00 Orders Only Doctor Unassigned, [place] [facility] 1.2.840.114 350.1.13.10 4.2.7.2.686 [id number] [facility] 2021-09-11 19:42:00 2021-09-11 23:02:00 Emergency X APPLE WANG [facility] ERT [id number] [facility] 2021-09-11 19:42:00 2021-09-11 23:02:00 Emergency Apple Wang [facility] 1.2.840.114 350.1.13.10 4.2.7.2.686 [id number] [id number] [facility] 2021-08-14 23:38:00 2021-08-15 02:29:00 Emergency X BOB GARCIA [facility] ERT [id number] [facility] 2021-08-14 23:38:00 2021-08-15 02:29:00 Emergency Bob Garcia [facility] 1.2.840.114 350.1.13.10 4.2.7.2.686 [id number] [id number] [facility] 2021-05-27 23:23:00 2021-05-28 04:23:00 Emergency X CEM CHOI [facility] ERT [id number] [facility] 2021-05-27 23:23:00 2021-05-28 04:23:00 Emergency Anthony Cem [facility] 1.2.840.114 350.1.13.10 4.2.7.2.686 [id number] [id number] [facility] 2021-04-10 00:00:00 2021-04-10 00:00:00 Transition of Care Shelley Rosas [facility] 1.2.840.114 350.1.13.10 4.2.7.2.686 [id number] [facility] 2021-04-07 16:30:00 2021-04-08 17:45:00 Hospital Encounter Roberto Richards Jelani [facility] 1.2.840.114 350.1.13.10 4.2.7.2.686 [id number] [facility] 2021-04-07 16:18:00 2021-04-07 16:18:00 Emergency X [facility] ERT [id number] [facility] 2021-01-12 03:01:00 2021-01-12 04:56:00 Emergency Klaudia Narvaez [facility] 1.2.840.114 350.1.13.10 4.2.7.2.686 [id number] [id number] [facility] 2021-01-12 03:01:00 2021-01-12 03:01:00 Emergency X KLAUDIA NARVAEZ [facility] ERT [id number] [facility] 2020-12-10 17:12:00 2020-12-10 21:14:00 Emergency Bal Hassan [facility] 1.2.840.114 350.1.13.10 4.2.7.2.686 [id number] [id number] [facility] 2020-12-10 17:12:00 2020-12-10 17:12:00 Emergency X BAL HASSAN [facility] ERT [id number] [facility] 2020-12-04 14:50:00 2020-12-04 17:08:00 Emergency EbTremaine stratton [facility] 1.2.840.114 350.1.13.10 4.2.7.2.686 [id number] [facility] 2020-12-04 14:50:00 2020-12-04 17:08:00 Emergency X TREMAINE BECERRA [facility] ERT [id number] [facility] 2020-11-03 20:44:00 2020-11-03 23:34:00 Emergency PonceLeeanne almonte [facility] 1.2.840.114 350.1.13.10 4.2.7.2.686 [id number] [id number] [facility] 2020-11-03 20:44:00 2020-11-03 23:34:00 Emergency X LEEANNE WISE [facility] ERT [id number] [facility] 2020-09-19 12:32:00 2020-09-19 14:15:00 Emergency ER OWO, TO[facility] [id number] [facility] 2020-09-17 09:53:00 2020-09-17 11:55:00 Emergency Leeanne Wise [facility] 1.2.840.114 350.1.13.10 4.2.7.2.686 [id number] 2020-09-17 09:53:00 2020-09-17 11:55:00 Emergency Leeanne Wise [facility] 1.2.840.114 350.1.13.10 4.2.7.2.686 [id number] [id number] [facility] 2020-09-17 09:53:00 2020-09-17 11:55:00 Emergency X LEEANNE WISE [facility] ERT [id number] [facility] 2020-09-07 00:37:00 2020-09-07 01:41:00 Emergency Saleem Edward [facility] 1.2.840.114 350.1.13.10 4.2.7.2.686 [id number] 2020-09-07 00:37:00 2020-09-07 01:41:00 Emergency Saleem Edward [facility] 1.2.840.114 350.1.13.10 4.2.7.2.686 [id number] [id number] [facility] 2020-09-07 00:37:00 2020-09-07 01:41:00 Emergency X Saleem EDWARD [facility] ERT [id number] [facility] 2020-09-07 00:00:00 2020-09-07 00:00:00 Orders Only Doctor Unassigned, [place] [facility] 1.2.840.114 350.1.13.10 4.2.7.2.686 [id number] 2020-09-07 00:00:00 2020-09-07 00:00:00 Orders Only Doctor Unassigned, [place] [facility] 1.2.840.114 350.1.13.10 4.2.7.2.686 [id number] [facility] 2020-08-28 01:59:00 2020-08-28 04:40:00 Emergency Bob Garcia [facility] 1.2.840.114 350.1.13.10 4.2.7.2.686 [id number] 084 [id number] 2020-08-28 01:59:00 2020-08-28 04:40:00 [facility] 1.2.840.114 350.1.13.10 4.2.7.2.686 [id number] [id number] [facility] 2020-08-28 01:59:00 2020-08-28 01:59:00 Emergency X BOB GARCIA [facility] ERT [id number] [facility] 2020-08-14 11:48:00 2020-08-14 13:42:00 Emergency Best Taylor [facility] 1.2.840.114 350.1.13.10 4.2.7.2.686 [id number] [id number] 2020-08-14 11:48:00 2020-08-14 13:42:00 Emergency Best Taylor [facility] 1.2.840.114 350.1.13.10 4.2.7.2.686 [id number] [id number] [facility] 2020-08-14 11:33:00 2020-08-14 11:33:00 Emergency X BEST TAYLOR [facility] ERT [id number] [facility] 2020-08-10 18:35:00 2020-08-11 00:05:00 Emergency Claudia, [facility] 1.2.840.114 350.1.13.10 4.2.7.2.686 [id number] 084 [id number] 2020-08-10 18:35:00 2020-08-11 00:05:00 Emergency Best Taylor Wakili S [facility] 1.2.840.114 350.1.13.10 4.2.7.2.686 [id number] [id number] [facility] 2020-08-10 18:35:00 2020-08-11 00:05:00 Emergency X BOB GARCIA [facility] ERT [id number] [facility] 2020-08-07 07:19:00 2020-08-07 09:02:00 [facility] 1.2.840.114 350.1.13.10 4.2.7.2.686 [id number] [id number] 2020-08-07 07:19:00 2020-08-07 09:02:00 Emergency Maurice [facility] 1.2.840.114 350.1.13.10 4.2.7.2.686 [id number] [id number] [facility] 2020-08-07 07:12:00 2020-08-07 07:12:00 Emergency X [facility] ERT [id number] [facility] 2020-08-07 00:00:00 2020-08-07 00:00:00 Orders Only Doctor Unassigned, [place] [facility] 1.2.840.114 350.1.13.10 4.2.7.2.686 [id number] 2020-08-07 00:00:00 2020-08-07 00:00:00 Orders Only Doctor Unassigned, [place] [facility] 1.2.840.114 350.1.13.10 4.2.7.2.686 [id number] [facility] 2020-07-01 00:00:00 2020-07-01 00:00:00 Letter (Out) [facility] 1.2.840.114 350.1.13.10 4.2.7.2.686 [id number] 2020-07-01 00:00:00 2020-07-01 00:00:00 Letter (Out) [facility] 1.2.840.114 350.1.13.10 4.2.7.2.686 [id number] [facility] 2020-06-30 17:46:00 2020-06-30 21:06:00 Emergency Jessica [facility] 1.2.840.114 350.1.13.10 4.2.7.2.686 [id number] 084 [id number] 2020-06-30 17:46:00 2020-06-30 21:06:00 Emergency Jessica [facility] 1.2.840.114 350.1.13.10 4.2.7.2.686 [id number] [id number] [facility] 2020-06-30 17:46:00 2020-06-30 21:06:00 Emergency [facility] ERT [id number] [facility] 2020-06-28 16:00:00 2020-06-28 18:08:00 Emergency Singer [facility] 1.2.840.114 350.1.13.10 4.2.7.2.686 [id number] 084 [id number] 2020-06-28 16:00:00 2020-06-28 18:08:00 Emergency Singer [facility] 1.2.840.114 350.1.13.10 4.2.7.2.686 [id number] [id number] [facility] 2020-06-28 16:00:00 2020-06-28 16:00:00 Emergency X KLAUDIA NARVAEZ [facility] ERT [id number] [facility] 2020-06-14 00:00:00 2020-06-14 00:00:00 Telephone [facility] 1.2.840.114 350.1.13.10 4.2.7.2.686 [id number] 2020-06-14 00:00:00 2020-06-14 00:00:00 Telephone Kamryn Sheppard [facility] 1.2.840.114 350.1.13.10 4.2.7.2.686 [id number] [facility] 2020-06-12 17:40:00 2020-06-12 22:05:00 Emergency Leeanne Wise [facility] 1.2.840.114 350.1.13.10 4.2.7.2.686 [id number] [id number] 2020-06-12 17:40:00 2020-06-12 22:05:00 Emergency Leeanne Wise [facility] 1.2.840.114 350.1.13.10 4.2.7.2.686 [id number] [facility] 2020-06-12 17:28:00 2020-06-12 17:28:00 Emergency X [facility] ERT [id number] [facility] 2020-05-16 17:10:00 2020-05-16 19:01:00 Emergency Bushra Rios [facility] 1.2.840.114 350.1.13.10 4.2.7.2.686 [id number] 2020-05-16 17:10:00 2020-05-16 19:01:00 Emergency Bushra Rios [facility] 1.2.840.114 350.1.13.10 4.2.7.2.686 [id number] [facility] 2020-05-16 17:10:00 2020-05-16 17:10:00 Emergency X BUSHRA RIOS [facility] ERT [id number] [facility] 2020-05-14 23:18:00 2020-05-15 02:54:00 Emergency Roberto Richards [facility] 1.2.840.114 350.1.13.10 4.2.7.2.686 [id number] 084 [id number] 2020-05-14 23:18:00 2020-05-15 02:54:00 Emergency Roberto Richards [facility] 1.2.840.114 350.1.13.10 4.2.7.2.686 [id number] [facility] 2020-05-14 23:14:00 2020-05-14 23:14:00 Emergency X ROBERTO RICHARDS [facility] ERT [id number] [facility] 2009-07-18 05:35:00 2009-07-18 09:19:00 Emergency ER SINCERE FRANK [facility] [id number] [facility] 2008-10-08 09:55:00 2008-10-08 14:19:00 Emergency ER ACACIA ALVAREZED [facility] [id number] [facility] 2008-03-26 15:21:00 2008-03-26 18:08:00 Emergency ER NEIL WILKINS [facility] [id number] [facility] 2005-05-25 06:35:00 2005-05-25 06:35:00 Outpatient LISA LUNA [facility] [id number] [facility] 2005-05-16 21:57:00 2005-05-16 23:40:00 Emergency ER JW SOLORZANO [facility] [id number] [facility] 2005-04-24 18:49:00 2005-04-24 22:40:00 Emergency ER JW SOLORZANO [facility] [id number] [facility] 2004-12-27 20:30:00 2004-12-28 01:40:00 Emergency ER SANIA SIBLEY [facility] [id number] [facility] 2003-12-07 22:40:00 2003-12-08 02:48:00 Emergency ER GINA MARTIN [facility] [id number] [facility] 2003-12-06 13:57:00 2003-12-06 18:30:00 Emergency ER YIN RIOS [facility] [id number] [facility] 2003-08-31 19:43:00 2003-08-31 22:55:00 Emergency ER GUMARO ALVAREZ [facility] [id number] [facility] 2003-08-22 19:26:00 2003-08-22 22:10:00 Emergency ER TIN ALBERTO [facility] [id number] [facility] 2002-01-30 22:41:00 2002-01-31 01:29:00 Emergency ER JENNIE ANTHONY [facility] [id number] [facility] 2001-10-28 09:15:00 2001-10-28 11:25:00 Emergency ER DARCIE MCKEON [facility] [id number] [facility] 2001-04-15 19:14:00 2001-04-15 23:10:00 Emergency ER ARLETTE ROBERT [facility] [id number] [facility] 2000-12-25 21:52:00 2000-12-26 00:15:00 Emergency ER GISELA RIOS [facility] [id number] [facility] 2000-12-23 18:51:00 2000-12-23 22:00:00 Emergency ER HUGO COFFMAN [facility] [id number] [facility] 1999-10-26 21:11:00 1999-10-27 00:20:00 Emergency ER JW SOLORZANO [facility] [id number] [facility] Results Test Description Test Time Test Comments Results Result Co mments Source [facility] 1 [id number] 00:10:33CHEST ONE VIEW ORDERING PHYSICIAN: KLAUDIA NARVAEZ CLINICAL HISTORY:Chest pain ; TECHNIQUE: Single frontal radiograph of the chest was obtained. COMPARISON: Radiograph 10/31/2024. FINDINGS: Cardiac silhouette is within normal limits. No focal lung consolidation. Nopneumothorax or pleural effusion. Noacute osseous abnormality. [facility] [id number] 01:45:00* Test Item Value Reference Range Interpretation Comme nts POCT PREG (test code = 1605) Negative On board controls acceptable with C Line (test code = 3574) Yes POCT PREG LOT # (test code = 3575) [id number] POCT PREG TEST DATE ( test code = 3576) 2026-01-04 Lab Interpretation (test cod e = 32335-5) Normal [facility] Ab[facility] pelvis w [id number] 05:06:35Exam: CT Abdomen and Pelvis with contrast, 11/10/2024 8:45 PM. Ordering Physician: BOB GARCIA. History: Abdominal pain, acute, nonlocalized LEFT SIDED ABDOMINAL PAIN X 1 DAY . Comparison: CT abdomen pelvis 10/23/2024. Technique: CT abdomen and pelvis was obtained with intravenous contrast. CTwas p erformed according to ALARA (As Low As Reasonably Achievable). Technical Quality: Adequate. Findings: LOWER CHEST:Mild bibasilar atelectasis. ABDOMEN/PELVIS:Liver: No focal lesion.Gallbladder/biliary: Postcholecystectomy. Prominence of the intra- andextrahepatic biliary system consistent with prior cholecystectomy.Pancreas: Normal.Spleen: Small calcified granuloma. Adrenal glands: Unchanged left adrenal nodule measuring 2.9 cm.Kidneys and ureters: No stone or hydronephrosis. Subcentimeterhypoattenuating lesions are too small to fully characterize butstatistically represent small cyst.Bladder: Normal.Reproductive organs: Fibroid appearance of the uterus. No adnexal mass. Stomach/bowel: No bowel obstruction. No bowel wall thickening. Normalappendix. Lymph nodes: No lymphadenopathy.Peritoneum: No organized fluid collection or free air.Vessels: Unremarkable. MUSCULOSKELETAL:Soft tissues: Unr emarkable.Bones: No acute osseous abnormality.[facility] Comp. Metabolic Panel ([id number])2024-11-11 03:05:56* Test Item Value Reference Range Interpretation Comme nts NA (test code = 8319418530) 137 mmol/L 135-145 K (test code = 4705552646) 3.2 mmol/L 3.5-5.0 L CL (test code = 4008951346) 107 mmol/L 98-108 CO2 TOTAL (test code = 0498696750) 23 mmol/L 23-31 AGAP (test code = 9682020849) 7 2-16 BUN (test code = 1532009870) 8 mg/dL 7-23 GLUCOSE (test code = 9686570690) 93 mg/dL 70-110 CREATININE (test code = 2160-0) 0.59 mg/dL 0.50-1.04 TOTAL BILI (test code = 3618638504) 0.2 mg/dL 0.1-1.1 CALCIUM (test code = 5970031477) 9 mg/dL 8.6-10.6 T PROTEIN (test code = 5162112428) 6.5 g/dL 6.3-8.2 ALBUMIN (test code = 0659632673) 3.8 g/dL 3.5-5.0 ALK PHOS (test code = 3663136868) 56 U/L 34-122 ALTv (test code = 1742-6) 14 U/L 5-35 AST(SGOT) (test code = 8372762691) 16 U/L 13-40 eGFR (test code = 37598-6) 113.4 mL/min/1.73m2 CKD-EPI eGFR (2020). Assuming creatinine has been stable day-to-day for at least three months, the eGFR indicates Category G1 (>= 90 mL/min/1.73 m2) Lab Interpretation (test code = 76057-1) [facility]:05:36* Test Item Value Reference Range Interpretation Comme nts LIPASE (test code = 0929444113) 108 U/L 0-220 Lab Interpretation (test cod e = 45310-5) Normal [facility] with Elhs3360-30-80 02:49:12* Test Item Value Reference Range Interpretation [...] 32.5 g/dL 31.6-35.1 RDW-SD (test code = 17518-4) 52.4 fL 39.0-49.9 H RDW-CV (test code = 788-0) 17.9 % 12.0-15.5 H PLT (test code = 777-3) 337 166-358 MPV (test code = 40241-8) 9.6 fL 9.5-12.9 NRBC/100 WBC (test code = 4282442409) 0 0.0-10.0 NRBC x10^3 (test code = 2062168877) See_Comment [Automated messa ge] The system which generated this result transmitted reference range: 10*3/?L. The reference range was not used to interpret this result as normal/abnormal. GRAN MAT (NEUT) % (test code = 770-8) 49.2 % IMM GRAN % (test code = 9049082543) 0.1 % LYMPH % (test code = 736-9) 40.4 % MONO % (test code = 5905-5) 7 % EOS % (test code = 713-8) 2.8 % BASO % (test code = 706-2) 0.5 % GRAN MAT x10^3(ANC) (test code = 1222995068) 3.86 10*3/uL 1.88-7.09 IMM GRAN x10^3 (test code = 1638985012) 0.00-0.06 LYMPH x10^3 (test code = 731-0) 3.17 10*3/uL 1.32-3.29 MONO x10^3 (test code = 742-7) 0.55 10*3/uL 0.33-0.92 EOS x10^3 (test code = 711-2) 0.22 10*3/uL 0.03-0.39 BASO x10^3 (test code = 704-7) 0.04 10*3/uL 0.01-0.07 Lab Interpretation (test code = 79468-2) [facility] [id number] 02:26:00* Test Item Value Reference Range Interpretation Comme nts POCT PREG (test code = 1605) Negative On board controls acceptable with C Line (test code = 3574) Yes POCT PREG LOT # (test code = 3575) [id number] POCT PREG TEST DATE ( test code = 3576) 01/28/2026 Lab Interpretation (test cod e = 29363-8) Normal [facility] StationCardiovascular Xvkcivtqawxknwp3101-04-54 20:32:27Left Heart Cath/Coronary Angiography Charity Roca Date of Service: 11/03/2024 ?2:55 PM Attending Physician: Dane Jurado MDFellow: Dr. JonesReferring Physician: Dr. Sandra ProceduresPerformed:LHC/Coronary Angiogram: CPT 94587RUQ of mLAD: CPT 20572TXS of mRCA: CPT 42455 Indication/D iagnosis: ACS ([place]/NSTEMI) Consent: Risks, benefits, alternatives and complications of the procedure discussed with the patient, who understood and agreed to proceed. Aseptic technique: Chlorprep Local Anesthesia: 1% lidocaine without epinephrine Sedation: Moderate Access site: right femoral arteryClosure Method: Angio-Seal Sterile dressing: yes Complications: none Procedures: After patient identification/verification, the patient was thereafter transferred to the blood bank laboratory technologist table. ?The access site was prepped and [...] with patient Dane Jurado MD 11/03/2024 2:[facility] ([facility])2024-11-03 14:39:09* Test Item Value Reference Range Interpretation Comme [facility] APTT Patient (test code = 3173-2) 43 26-36 H Lab Interpretation (test cod e = 73498-8) Abnormal [facility] (for use with Heparin Infusion)2024-11-03 14:39:09* Test Item Value Reference Range Interpretation Comme [facility] APTT Patient (test code = 3173-2) 43 26-36 H Lab Interpretation (test cod e = 64242-3) Abnormal [place] [address] Lead ROUTINE [id number] 09:59:09* Test Item Value Reference Range Interpretation Comme [facility] Lab Interpretation (test cod e = 10035-8) Abnormal [place] [address] Lead ROUTINE [id number] 09:59:09* Test Item Value Reference [facility]ation [facility] Lab Interpretation (test cod e = 17841-3) [facility]normal [facility] StationThyroid Stimulating Uybkqyj1776-78-63 00:01:33 * Test Item Value Reference Range Interpretation [facility] TSH (test code = 3166526887) 4.07 0.45-4.70 Biotin has been reported to cause a negative bias, interpret results relative to patient's use of biotin. Lab Interpretation (test code = 59767-5) Normal [facility] StationThy[facility] Stim[facility] Zhhrieq7372-57-86 00:01:33 * Test Item Value Reference Range Interpretation Comme nts TSH (test code = 0160196884) 4.07 0.45-4.70 Biotin has been reported to cause a negative bias, interpret results relative to patient's use of biotin. Lab Interpretation (test code = 89350-2) Normal [facility] StationProthrombin Time (PT) / [id number] 20:11:45 * Test Item Value Reference Range Interpretation Comme nts PROTIME PATIENT (test code = 5964-2) 11.3 10.1-12.6 INR (test code = 6301-6) 1 <=4.5 Normal INR <1.1; Warfarin Therapeutic range 2.0 to 3.0 or 2.5 to 3.5, depending upon the indications. Lab Interpretation (test code = 72807-7) Normal [facility] StationaPTT2025-04-27 20:11:45* Test Item Value Reference Range Interpretation Comme [facility] APTT Patient (test code = 3173-2) 25 26-36 L DARWIN (test code = DARWIN) The [facility] patient population mean normal value for aPTT is 30 seconds. Lab Interpretation (test code = 65363-8) Abnormal [facility] StationProthrombin Time (PT) / [id number] 20:11:45 * Test Item Value Reference Range Interpretation Comme nts PROTIME PATIENT (test code = 5964-2) 11.3 10.1-12.6 INR (test code = 6301-6) 1 <=4.5 Normal INR <1.1; Warfarin Therapeutic range 2.0 to 3.0 or 2.5 to 3.5, depending upon the indications. Lab Interpretation (test code = 99103-6) Normal [facility] StationaPTT2025-04-27 20:11:45* Test Item Value Reference Range Interpretation Comme [facility] APTT Patient (test code = 3173-2) 25 26-36 L DARWIN (test code = DARWIN) The [facility] patient population mean normal value for aPTT is 30 seconds. Lab Interpretation (test code = 89331-1) Abnormal [facility] StationProcalcitonin2025-04-27 17:14:31* Test Item Value Reference Range Interpretation Eunicee sagrario Procalcitonin (test code = 0793540970) 0.02 ng/mL <=0.07 DARWIN (test code = [...] lung abscess/empyema. For further information please refer to:[email or web address] Lab Interpretation (test code = 50892-9) Normal [facility] StationProcalcitonin2025-04-27 17:14:31* Test Item Value Reference Range Interpretation Comme nts Procalcitonin (test code = 4822534358) 0.02 ng/mL <=0.07 DARWIN (test code = [...] lung abscess/empyema. For further information please refer to:[email or web address] Lab Interpretation (test code = 91810-0) Normal [facility] StationTransthoracic echo (TTE) Yciiauc4858-97-50 14:54:14* Test Item Value Reference Range Interpretation Comme nts Height (test code = 6875343740) 62 in Weight (test code = 3508976007) 240 lbs Systolic BP (test code = 6951257835) 156 mmHg Diastolic BP (test code = 9592494958) 99 mmHg Heart Rate (test code = 5121252242) 76 bpm BSA (test code = 8416246901) 2.07 m2 LVOT diameter (test code = 3521191398) 1.86 cm LVOT area (test code = 3302898916) 2.7 cm2 Ao root diam (test code = 1387669988) 3.1 cm Aortic root (test code = 4057818343) 3.1 cm Ao root annulus (test code = 9695675626) 3.1 cm LA size (test code = 1148148493) 3.7 cm LVIDD (test code = 8971182040) 3.8 cm Left Ventricular End Diastolic Volume by Teichholz Method (test code = 0083437) 63 mL IVS (test code = 0689406270) 1.35 cm Interventricular Septum Diastolic Thickness by 2D (test code = 0868457) 1.35 cm LVPWD (test code = 8077028258) 1.36 cm PW (test code = 6145744001) 1.36 cm 0.6-1.1 EF(Teich) (test code = 9370220423) 53 % LVIDS (test code = 6236959276) 2.8 cm Left Ventricular End Systolic Volume by Teichholz Method (test code = 8248924) 29.6 mL FS (test code = 4647800010) 27 % EF - 2D (test code = 94495727) 53 % LAV(MOD-sp4) (test code = 8182968573) 53.8 mL E wave decelartion time (test code = 8751875592) 0.25 s MV stenosis pressure 1/2 time (test code = 4621395617) 73.5 ms MV Peak A Edilson (test code = 1357206261) 73.2 cm/s MV Peak E Edilson (test code = 7646833023) 64.2 cm/s E/A ratio (test code = 9573791729) 0.88 ratio MV Prop V (test code = 3410050292) 62.4 cm/s MV E/e' septal (test code = 4136201329) 12.8 cm/s Tapse (test code = 1260635238) 1.58 cm LVOT stroke volume (test code = 6294336030) 60 cm3 LVOT peak edilson (test code = 0206628145) 110.2 cm/s LVOT mn grad (test code = 0306343532) 2.5 mmHg AV LVOT peak gradient (test code = 3029281310) 4.9 mmHg LVOT peak VTI (test code = 6513816054) 22.1 cm LV V1 mean (test code = 1934586609) 75.6 cm/s Aortic valve mean velocity (test code = 2055459448) 97 cm/s Ao peak edilson (test code = 8265326095) 138 cm/s Ao VTI (test code = 4659692633) 28 cm AV area by cont VTI (test code = 9064157295) 2.1 cm2 AV area peak edilson (test code = 2933619756) 2.2 cm2 Ao max PG (test code = 5869791760) 7.6 mm[Hg] AV peak gradient (test code = 8691759128) 7.6 mmHg AV valve area (test code = 0087647805) 2.14 cm2 AV mean gradient (test code = 0797776520) 4 mmHg Radiology Study observation (narrative) (test code = 80409-5) DARWIN (test code = DARWIN) ?Left?Ventricle: Left [...] of Optison ultrasound enhancing agent used. [facility] StationTransthoracic echo (TTE) Qmcvxov2065-30-88 14:54:14* Test Item Value Reference Range Interpretation Comme nts Height (test code = 5394484859) 62 in Weight (test code = 9553630607) 240 lbs Systolic BP (test code = 6129789676) 156 mmHg Diastolic BP (test code = 8466520179) 99 mmHg Heart Rate (test code = 3705343502) 76 bpm BSA (test code = 1123048846) 2.07 m2 LVOT diameter (test code = 8023496377) 1.86 cm LVOT area (test code = 6545568712) 2.7 cm2 Ao root diam (test code = 1595405960) 3.1 cm Aortic root (test code = 0370465960) 3.1 cm Ao root annulus (test code = 9993729068) 3.1 cm LA size (test code = 1104276070) 3.7 cm LVIDD (test code = 1375023785) 3.8 cm Left Ventricular End Diastolic Volume by Teichholz Method (test code = 3540851) 63 mL IVS (test code = 9703036166) 1.35 cm Interventricular Septum Diastolic Thickness by 2D (test code = 9256635) 1.35 cm LVPWD (test code = 2509328651) 1.36 cm PW (test code = 6156977280) 1.36 cm 0.6-1.1 EF(Teich) (test code = 4820055260) 53 % LVIDS (test code = 7577539074) 2.8 cm Left Ventricular End Systolic Volume by Teichholz Method (test code = 8824332) 29.6 mL FS (test code = 7954067794) 27 % EF - 2D (test code = 48593859) 53 % LAV(MOD-sp4) (test code = 4123757376) 53.8 mL E wave decelartion time (test code = 0752323260) 0.25 s MV stenosis pressure 1/2 time (test code = 7642681875) 73.5 ms MV Peak A Edilson (test code = 3800676962) 73.2 cm/s MV Peak E Edilson (test code = 8635703602) 64.2 cm/s E/A ratio (test code = 7601335112) 0.88 ratio MV Prop V (test code = 6964044593) 62.4 cm/s MV E/e' septal (test code = 7438171056) 12.8 cm/s Tapse (test code = 3681731230) 1.58 cm LVOT stroke volume (test code = 1291261732) 60 cm3 LVOT peak edilson (test code = 5622810821) 110.2 cm/s LVOT mn grad (test code = 4918237650) 2.5 mmHg AV LVOT peak gradient (test code = 3653615087) 4.9 mmHg LVOT peak VTI (test code = 0908987394) 22.1 cm LV V1 mean (test code = 5747361106) 75.6 cm/s Aortic valve mean velocity (test code = 0050840868) 97 cm/s Ao peak edilson (test code = 0160498197) 138 cm/s Ao VTI (test code = 5236000518) 28 cm AV area by cont VTI (test code = 5645585910) 2.1 cm2 AV area peak edilson (test code = 6041629355) 2.2 cm2 Ao max PG (test code = 0235423421) 7.6 mm[Hg] AV peak gradient (test code = 0780490824) 7.6 mmHg AV valve area (test code = 0994206922) 2.14 cm2 AV mean gradient (test code = 7270936837) 4 mmHg Radiology Study observation (narrative) (test code = 24656-1) DARWIN (test code = DARWIN) ?Left?Ventricle: Left [...] of Optison ultrasound enhancing agent used. [facility] StationN-Terminal Prw-Iao7787-48-27 14:40:37* Test Item Value Reference Range Interpretation Comme nts NT-proBNP (test code = 42098-1) <=125 Lab Interpretation (test cod e = 38958-1) Normal [facility] StationN-Terminal Xkj-Irl4285-64-27 14:40:37* Test Item Value Reference Range Interpretation Comme nts NT-proBNP (test code = 98539-6) <=125 Lab Interpretation (test cod e = 89406-6) Normal [facility] StationGlycosylated Hemoglobin (A1C)2024-11-01 14:39:42* Test Item Value Reference Range Interpretation Comme nts HGB A1C (test code = 4548-4) 5.6 % 4.0-5.7 DARWIN (test code = DARWIN) Reference RangesNormal: <5.7%Prediabetes: 5.7 - 6.4%Diabetes: > 6.5% Lab Interpretation (test code = 51500-1) Normal [facility] StationGlycosylated Hemoglobin (A1C)2024-11-01 14:39:42* Test Item Value Reference Range Interpretation Comme nts HGB A1C (test code = 4548-4) 5.6 % 4.0-5.7 DARWIN (test code = DARWIN) Reference RangesNormal: <5.7%Prediabetes: 5.7 - 6.4%Diabetes: > 6.5% Lab Interpretation (test code = 53495-8) Normal [facility] StationTroponin [id number] 14:28:10* Test Item Value Reference Range Interpretation Comme nts TROPONIN I (test code = 5139027282) 0.003 ng/mL <=0.034 DARWIN (test code = [...] of biotin. Lab Interpretation (test code = 21296-6) Normal [facility] StationTroponin [id number] 14:28:10* Test Item Value Reference Range Interpretation Comme nts TROPONIN I (test code = 8227780088) 0.003 ng/mL <=0.034 DARWIN (test code = [...] of biotin. Lab Interpretation (test code = 43050-8) Normal [facility] StationLipid Panel (52519)(Total Cholesterol, Triglycerides, HDL)2024-11-01 14:15:31* Test Item Value Reference Range Interpretation Comme nts CHOL (test code = 0941631421) 185 mg/dL 120-200 HDL (test code = 6224839798) 36 mg/dL >=50 L HDLC RATIO (test code = 3517845093) 5.1 <=4.5 H TRIG (test code = 3201918895) 219 mg/dL 30-170 H LDL CHOL (test code = 05262-4) 105 mg/dL <=160 VLDL (test code = 5305102904) 44 mg/dL 5-60 Lab Interpretation (test cod e = 99191-2) Abnormal [facility] StationLipid Panel (88529)(Total Cholesterol, Triglycerides, HDL)2024-11-01 14:15:31* Test Item Value Reference Range Interpretation Comme nts CHOL (test code = 8312591398) 185 mg/dL 120-200 HDL (test code = 6824936330) 36 mg/dL >=50 L HDLC RATIO (test code = 0804283841) 5.1 <=4.5 H TRIG (test code = 1218033965) 219 mg/dL 30-170 H LDL CHOL (test code = 25410-2) 105 mg/dL <=160 VLDL (test code = 2744288116) 44 mg/dL 5-60 Lab Interpretation (test cod e = 66909-6) [facility] [id number] 08:18:33* Test Item Value Reference Range Interpretation Comme nts TROPONIN I (test code = 6092306766) 0.002 ng/mL <=0.034 DARWIN (test code = [...] of biotin. Lab Interpretation (test code = 17770-6) [facility] Z9227-08-06 08:18:33* Test Item Value Reference Range Interpretation Comme nts TROPONIN I (test code = 0046206831) 0.002 ng/mL <=0.034 DARWIN (test code = [...] of biotin. Lab Interpretation (test code = 59988-5) Normal [facility] Metabolic Panel (NA, K, CL, CO2, GLUCOSE, BUN, CREATININE, CA)2024-11-01 08:06:31* Test Item Value Reference Range Interpretation Comme nts NA (test code = 0943716969) 138 mmol/L 135-145 K (test code = 9601067713) 3.6 mmol/L 3.5-5.0 CL (test code = 8888279035) 105 mmol/L 98-108 CO2 TOTAL (test code = 8609307025) 25 mmol/L 23-31 AGAP (test code = 0611547475) 8 2-16 BUN (test code = 2225721401) 9 mg/dL 7-23 GLUCOSE (test code = 3244998396) 113 mg/dL 70-110 H CREATININE (test code = 2160-0) 0.63 mg/dL 0.50-1.04 CALCIUM (test code = 9063322242) 9.1 mg/dL 8.6-10.6 eGFR (test code = 83284-8) 111.6 mL/min/1.73m2 CKD-EPI eGFR (2020). Assuming creatinine has been stable day-to-day for at least three months, the eGFR indicates Category G1 (>= 90 mL/min/1.73 m2) Lab Interpretation (test code = 22627-5) Abnormal [facility] Metabolic Panel (NA, K, CL, CO2, GLUCOSE, BUN, CREATININE, CA)2024-11-01 08:06:31* Test Item Value Reference Range Interpretation Comme nts NA (test code = 9416063775) 138 mmol/L 135-145 K (test code = 7474793513) 3.6 mmol/L 3.5-5.0 CL (test code = 5762337625) 105 mmol/L 98-108 CO2 TOTAL (test code = 0667304620) 25 mmol/L 23-31 AGAP (test code = 1094919423) 8 2-16 BUN (test code = 1196217081) 9 mg/dL 7-23 GLUCOSE (test code = 6058110693) 113 mg/dL 70-110 H CREATININE (test code = 2160-0) 0.63 mg/dL 0.50-1.04 CALCIUM (test code = 0365024618) 9.1 mg/dL 8.6-10.6 eGFR (test code = 18098-8) 111.6 mL/min/1.73m2 CKD-EPI eGFR (2020). Assuming creatinine has been stable day-to-day for at least three months, the eGFR indicates Category G1 (>= 90 mL/min/1.73 m2) Lab Interpretation (test code = 75367-5) Abnormal [facility] with Wyjz2846-92-58 07:51:49* Test Item Value Reference Range Interpretation [...] 32.6 g/dL 31.6-35.1 RDW-SD (test code = 23471-2) 53.2 fL 39.0-49.9 H RDW-CV (test code = 788-0) 18.6 % 12.0-15.5 H PLT (test code = 777-3) 361 166-358 H MPV (test code = 25844-5) 9.5 fL 9.5-12.9 NRBC/100 WBC (test code = 1628652786) 0 0.0-10.0 NRBC x10^3 (test code = 3014215825) See_Comment [Automated messa ge] The system which generated this result transmitted reference range: 10*3/?L. The reference range was not used to interpret this result as normal/abnormal. GRAN MAT (NEUT) % (test code = 770-8) 63.7 % IMM GRAN % (test code = 5995527808) 0.4 % LYMPH % (test code = 736-9) 26.9 % MONO % (test code = 5905-5) 7.1 % EOS % (test code = 713-8) 1.5 % BASO % (test code = 706-2) 0.4 % GRAN MAT x10^3(ANC) (test code = 5517261820) 7.23 10*3/uL 1.88-7.09 H IMM GRAN x10^3 (test code = 8089822672) 0.05 10*3/uL 0.00-0.06 LYMPH x10^3 (test code = 731-0) 3.05 10*3/uL 1.32-3.29 MONO x10^3 (test code = 742-7) 0.8 10*3/uL 0.33-0.92 EOS x10^3 (test code = 711-2) 0.17 10*3/uL 0.03-0.39 BASO x10^3 (test code = 704-7) 0.04 10*3/uL 0.01-0.07 Lab Interpretation (test code = 03159-6) Abnormal [facility] with Kknq0574-81-61 07:51:49* Test Item Value Reference Range Interpretation [...] 32.6 g/dL 31.6-35.1 RDW-SD (test code = 11598-6) 53.2 fL 39.0-49.9 H RDW-CV (test code = 788-0) 18.6 % 12.0-15.5 H PLT (test code = 777-3) 361 166-358 H MPV (test code = 15974-1) 9.5 fL 9.5-12.9 NRBC/100 WBC (test code = 6629442649) 0 0.0-10.0 NRBC x10^3 (test code = 2665541615) See_Comment [Automated messa ge] The system which generated this result transmitted reference range: 10*3/?L. The reference range was not used to interpret this result as normal/abnormal. GRAN MAT (NEUT) % (test code = 770-8) 63.7 % IMM GRAN % (test code = 5977973267) 0.4 % LYMPH % (test code = 736-9) 26.9 % MONO % (test code = 5905-5) 7.1 % EOS % (test code = 713-8) 1.5 % BASO % (test code = 706-2) 0.4 % GRAN MAT x10^3(ANC) (test code = 1658606568) 7.23 10*3/uL 1.88-7.09 H IMM GRAN x10^3 (test code = 5736716872) 0.05 10*3/uL 0.00-0.06 LYMPH x10^3 (test code = 731-0) 3.05 10*3/uL 1.32-3.29 MONO x10^3 (test code = 742-7) 0.8 10*3/uL 0.33-0.92 EOS x10^3 (test code = 711-2) 0.17 10*3/uL 0.03-0.39 BASO x10^3 (test code = 704-7) 0.04 10*3/uL 0.01-0.07 Lab Interpretation (test code = 21931-3) Abnormal [facility] 1 [id number] 03:52:49History: chest pain . Exam: XR CHEST 1 VW Date: 10/31/2024 10:00 PM Ordering provider: BOB GARCIA Comparison: 10/12/2024. Findings: Frontal view of the chest is obtained. The cardiac silhouette is normal in size. There are mild left perihilar andbibasilar opacities, which are similar on the prior. No evidence of pleuraleffusion, pneumothorax, or overt CHF.[facility] Chest 1 gm0056-10-61 03:52:49History: chest pain . Exam: XR CHEST 1 VW Date: 10/31/2024 10:00 PM Ordering provider: BOB GARCIA Comparison: 10/12/2024. Findings: Frontal view of the chest is obtained. The cardiac silhouette is n ormal in size. There are mild left perihilar andbibasilar opacities, which are similar on the prior. No evidence of pleuraleffusion, pneumothorax, or overt CHF.[facility] StationCT Abdomen pelvis w oorhnwqt8684-08-85 04:15:32CT ABDOMEN PELVIS W CONTRAST 10/23/2024 10:24 [...] changes of the spine. No concerning softtissue abnormality.[facility]. Metabolic Panel (86644)2024-10-24 02:17:07* Test Item Value Reference Range Interpretation Comme nts NA (test code = 8417741929) 136 mmol/L 135-145 K (test code = 5689219392) 3.7 mmol/L 3.5-5.0 CL (test code = 9065757179) 105 mmol/L 98-108 CO2 TOTAL (test code = 4627804277) 22 mmol/L 23-31 L AGAP (test code = 8170604386) 9 2-16 BUN (test code = 6661770351) 13 mg/dL 7-23 GLUCOSE (test code = 7921727726) 106 mg/dL 70-110 CREATININE (test code = 2160-0) 0.57 mg/dL 0.50-1.04 TOTAL BILI (test code = 6277975382) 0.4 mg/dL 0.1-1.1 CALCIUM (test code = 1334316829) 9.4 mg/dL 8.6-10.6 T PROTEIN (test code = 6918027725) 7.1 g/dL 6.3-8.2 ALBUMIN (test code = 0014973103) 4 g/dL 3.5-5.0 ALK PHOS (test code = 0156832234) 64 U/L 34-122 ALTv (test code = 1742-6) 15 U/L 5-35 AST(SGOT) (test code = 1634886943) 18 U/L 13-40 eGFR (test code = 54774-0) 114.4 mL/min/1.73m2 CKD-EPI eGFR (2020). Assuming creatinine has been stable day-to-day for at least three months, the eGFR indicates Category G1 (>= 90 mL/min/1.73 m2) Lab Interpretation (test code = 25052-1) Abnormal [facility] StationLipase2025-04-19 02:16:47* Test Item Value Reference Range Interpretation Comme nts LIPASE (test code = 5248614844) 110 U/L 0-220 Lab Interpretation (test cod e = 33526-5) Normal [facility] with Dowg3833-95-70 02:13:50* Test Item Value Reference Range Interpretation [...] 32.9 g/dL 31.6-35.1 RDW-SD (test code = 82220-8) 52.2 fL 39.0-49.9 H RDW-CV (test code = 788-0) 17.9 % 12.0-15.5 H PLT (test code = 777-3) 337 166-358 MPV (test code = 38580-4) 9.6 fL 9.5-12.9 IPF % (test code = 9190353719) 1.6 % 1.3-7.7 Platelet count measured by fluorescence method. NRBC/100 WBC (test code = 1908839070) 0 0.0-10.0 NRBC x10^3 (test code = 5758140054) See_Comment [Automated LiveStoriesa ge] The system which generated this result transmitted reference range: 10*3/?L. The reference range was not used to interpret this result as normal/abnormal. GRAN MAT (NEUT) % (test code = 770-8) 62.2 % IMM GRAN % (test code = 2364445075) 0.3 % LYMPH % (test code = 736-9) 29.3 % MONO % (test code = 5905-5) 6.2 % EOS % (test code = 713-8) 1.6 % BASO % (test code = 706-2) 0.4 % GRAN MAT x10^3(ANC) (test code = 6634603649) 6.92 10*3/uL 1.88-7.09 IMM GRAN x10^3 (test code = 6655062204) 0.03 10*3/uL 0.00-0.06 LYMPH x10^3 (test code = 731-0) 3.26 10*3/uL 1.32-3.29 MONO x10^3 (test code = 742-7) 0.69 10*3/uL 0.33-0.92 EOS x10^3 (test code = 711-2) 0.18 10*3/uL 0.03-0.39 BASO x10^3 (test code = 704-7) 0.05 10*3/uL 0.01-0.07 Lab Interpretation (test code = 01776-2) Abnormal [facility] [id number] 07:13:54* Test Item Value Reference Range Interpretation Comme nts TROPONIN I (test code = 8570756828) 0.002 ng/mL <=0.034 DARWIN (test code = [...] of biotin. Lab Interpretation (test code = 19590-2) Normal [facility] [id number] 05:06:47* Test Item Value Reference Range Interpretation Comme nts TROPONIN I (test code = 1686225619) 0.001 ng/mL <=0.034 DARWIN (test code = [...] of biotin. Lab Interpretation (test code = 89062-0) [facility] [id number] 05:04:06* Test Item Value Reference Range Interpretation Comme nts NT-proBNP (test code = 38331-6) 110 pg/mL <=125 Lab Interpretation (test cod e = 03609-3) [facility] ([id number])2024-10-13 04:55:24* Test Item Value Reference Range Interpretation Comme nts NA (test code = 1993145093) 135 mmol/L 135-145 K (test code = 9351332025) 3.5 mmol/L 3.5-5.0 CL (test code = 4623448753) 104 mmol/L 98-108 CO2 TOTAL (test code = 5798809894) 25 mmol/L 23-31 AGAP (test code = 5468644559) 6 2-16 BUN (test code = 4429648596) 12 mg/dL 7-23 GLUCOSE (test code = 4380684447) 83 mg/dL 70-110 CREATININE (test code = 2160-0) 0.55 mg/dL 0.50-1.04 TOTAL BILI (test code = 9952980534) 0.2 mg/dL 0.1-1.1 CALCIUM (test code = 6088367456) 9.2 mg/dL 8.6-10.6 T PROTEIN (test code = 7438709366) 6.3 g/dL 6.3-8.2 ALBUMIN (test code = 6341285612) 3.5 g/dL 3.5-5.0 ALK PHOS (test code = 2789389358) 58 U/L 34-122 ALTv (test code = 1742-6) 12 U/L 5-35 AST(SGOT) (test code = 0617465103) 13 U/L 13-40 eGFR (test code = 00198-5) 115.4 mL/min/1.73m2 CKD-EPI eGFR (20 21). Assuming creatinine has been stable day-to-day for at least three months, the eGFR indicates Category G1 (>= 90 mL/min/1.73 m2) [facility]25[facility] 04:55:03* Test Item Value Reference Range Interpretation Comme nts LIPASE (test code = 3539690429) 80 U/L 0-220 Lab Interpretation (test cod e = 78332-1) Normal [facility] StationCbc with Frig1700-50-00 04:41:23* Test Item Value Reference Range Interpretation [...] 32.1 g/dL 31.6-35.1 RDW-SD (test code = 21107-7) 51.6 fL 39.0-49.9 H RDW-CV (test code = 788-0) 17.9 % 12.0-15.5 H PLT (test code = 777-3) 328 166-358 MPV (test code = 69673-7) 8.9 fL 9.5-12.9 L NRBC/100 WBC (test code = 3974585249) 0.0 0.0-10.0 NRBC x10^3 (test code = 2345320310) See_Comment [Automated messa ge] The system which generated this result transmitted reference range: 10*3/?L. The reference range was not used to interpret this result as normal/abnormal. GRAN MAT (NEUT) % (test code = 770-8) 60.6 % IMM GRAN % (test code = 8597372174) 0.60 % LYMPH % (test code = 736-9) 31.0 % MONO % (test code = 5905-5) 5.9 % EOS % (test code = 713-8) 1.5 % BASO % (test code = 706-2) 0.4 % GRAN MAT x10^3(ANC) (test code = 2288320244) 6.12 10*3/uL 1.88-7.09 IMM GRAN x10^3 (test code = 6066743826) 0.06 10*3/uL 0.00-0.06 LYMPH x10^3 (test code = 731-0) 3.13 10*3/uL 1.32-3.29 MONO x10^3 (test code = 742-7) 0.60 10*3/uL 0.33-0.92 EOS x10^3 (test code = 711-2) 0.15 10*3/uL 0.03-0.39 BASO x10^3 (test code = 704-7) 0.04 10*3/uL 0.01-0.07 Lab Interpretation (test code = 99001-7) [facility]normal [facility] StationPOCT [id number] 03:46:00* Test Item Value Reference Range Interpretation Comme nts POCT PREG (test code = 1605) Negative On board controls acceptable with C Line (test code = 3574) Yes POCT PREG LOT # (test code = 3575) [id number] POCT PREG TEST DATE ( test code = 3576) 11/30/2025 Lab Interpretation (test cod e = 38856-8) Normal [facility] Chest pulmonary jhqyzthfx8037-82-30 06:33:58Exam: CT Angiography Chest with Contrast, 07/18/2024 [...] [facility] StationCT Abdomen pelvis w pgwfysii7749-29-45 06:50:04Exam: CT Abdomen and Pelvis With Contrast, [...] [facility] StationPOCT MPTK6330-21-06 05:33:00* Test Item Value Reference Range Interpretation Comme nts POCT PREG (test code = 1605) Negative On board controls acceptable with C Line (test code = 3574) Yes POCT PREG LOT # (test code = 1282) [id number] POCT PREG TEST DATE ( test code = 3576) 2025-06-22 Lab Interpretation (test cod e = 38841-0) Normal [facility] StationComplete Metabolic Cytsl1417-90-86 04:06:42* Test Item Value Reference Range Interpretation Comme nts NA (test code = 8364680403) 139 mmol/L 135-145 K (test code = 7648258983) 3.5 mmol/L 3.5-5.0 CL (test code = 7957676485) 105 mmol/L 98-108 CO2 TOTAL (test code = 8940194831) 26 mmol/L 23-31 AGAP (test code = 5542285348) 8 2-16 BUN (test code = 2929795886) 5 mg/dL 7-23 L GLUCOSE (test code = 1476426848) 101 mg/dL 70-110 CREATININE (test code = 2160-0) 0.58 mg/dL 0.50-1.04 TOTAL BILI (test code = 2011178026) 0.1-1.1 L CALCIUM (test code = 2749055396) 9.3 mg/dL 8.6-10.6 T PROTEIN (test code = 2724258649) 6.8 g/dL 6.3-8.2 ALBUMIN (test code = 8714419101) 3.9 g/dL 3.5-5.0 ALK PHOS (test code = 5951332170) 74 U/L 34-122 ALTv (test code = 1742-6) 17 U/L 5-35 AST(SGOT) (test code = 6456100838) 28 U/L 13-40 eGFR (test code = 87199-7) 113.9 mL/min/1.73m2 CKD-EPI eGFR (2020). Assuming creatinine has been stable day-to-day for at least three months, the eGFR indicates Category G1 (>= 90 mL/min/1.73 m2) Lab Interpretation (test code = 99180-3) Abnormal [facility] StationLipase, Krviy8682-79-92 04:01:05* Test Item Value Reference Range Interpretation Comme nts LIPASE (test code = 7862406437) 80 U/L 0-220 Lab Interpretation (test cod e = 55833-3) Normal [facility] with Eyjjowwwjejz0405-60-96 03:46:26* Test Item Value Reference Range Interpretation [...] 33.2 g/dL 31.6-35.1 RDW-SD (test code = 90652-3) 42.5 fL 39.0-49.9 RDW-CV (test code = 788-0) 14.6 % 12.0-15.5 PLT (test code = 777-3) 327 166-358 MPV (test code = 57700-9) 9.3 fL 9.5-12.9 L NRBC/100 WBC (test code = 9905440898) 0.0 0.0-10.0 NRBC x10^3 (test code = 3060138515) See_Comment [Automated messa ge] The system which generated this result transmitted reference range: 10*3/?L. The reference range was not used to interpret this result as normal/abnormal. GRAN MAT (NEUT) % (test code = 770-8) 65.7 % IMM GRAN % (test code = 1721661841) 0.50 % LYMPH % (test code = 736-9) 26.4 % MONO % (test code = 5905-5) 5.6 % EOS % (test code = 713-8) 1.4 % BASO % (test code = 706-2) 0.4 % GRAN MAT x10^3(ANC) (test code = 9386961328) 8.21 10*3/uL 1.88-7.09 H IMM GRAN x10^3 (test code = 1649185505) 0.06 10*3/uL 0.00-0.06 LYMPH x10^3 (test code = 731-0) 3.30 10*3/uL 1.32-3.29 H MONO x10^3 (test code = 742-7) 0.70 10*3/uL 0.33-0.92 EOS x10^3 (test code = 711-2) 0.17 10*3/uL 0.03-0.39 BASO x10^3 (test code = 704-7) 0.05 10*3/uL 0.01-0.07 Lab Interpretation (test code = 50558-2) Abnormal [facility] StationCT Abdomen pelvis w zjawvvbh0259-08-12 05:39:04CT ABDOMEN PELVIS W CONTRAST HISTORY: 44 [...] TISSUES: No suspicious lytic or sclerotic bony lesions.[facility]. Metabolic Panel (97133)2024-06-15 05:12:33* Test Item Value Reference Range Interpretation Comme nts NA (test code = 4218879114) 139 mmol/L 135-145 K (test code = 7878203998) 3.7 mmol/L 3.5-5.0 CL (test code = 1319761518) 109 mmol/L 98-108 H CO2 TOTAL (test code = 3870382953) 23 mmol/L 23-31 AGAP (test code = 7700216887) 7 2-16 BUN (test code = 5874533142) 6 mg/dL 7-23 L GLUCOSE (test code = 5209332884) 101 mg/dL 70-110 CREATININE (test code = 2160-0) 0.67 mg/dL 0.50-1.04 TOTAL BILI (test code = 7743397242) 0.1-1.1 L CALCIUM (test code = 1224995949) 9.4 mg/dL 8.6-10.6 T PROTEIN (test code = 7735330774) 7.0 g/dL 6.3-8.2 ALBUMIN (test code = 9063433868) 4.0 g/dL 3.5-5.0 ALK PHOS (test code = 0835928690) 87 U/L 34-122 ALTv (test code = 1742-6) 28 U/L 5-35 AST(SGOT) (test code = 6745630965) 24 U/L 13-40 eGFR (test code = 12477-7) 110.0 mL/min/1.73m2 CKD-EPI eGFR (2020). Assuming creatinine has been stable day-to-day for at least three months, the eGFR indicates Category G1 (>= 90 mL/min/1.73 m2) Lab Interpretation (test code = 64973-5) Abnormal [facility] StationTroponin [id number] 05:03:33* Test Item Value Reference Range Interpretation Comme nts TROPONIN I (test code = 2584924487) 0.000 ng/mL <=0.034 DARWIN (test code = [...] of biotin. Lab Interpretation (test code = 37904-9) Normal [facility] StationLipase2024-12-09 04:51:35* Test Item Value Reference Range Interpretation Comme nts LIPASE (test code = 5711977056) 94 U/L 0-220 Lab Interpretation (test cod e = 34046-9) Normal [facility] StationPregnancy Test, Loayn1983-46-10 04:51:30* Test Item Value Reference Range Interpretation Comme nts PREG SERUM (test code = 5642554574) Negative DARWIN (test code = DARWIN) Less than 10 IU/L. ?If low titer or ectopic is suspected, resubmit specimen in 48-72 hours. [facility] StationCb with Ujqk0739-41-73 04:36:57* Test Item Value Reference Range Interpretation [...] 32.9 g/dL 31.6-35.1 RDW-SD (test code = 60240-7) 44.3 fL 39.0-49.9 RDW-CV (test code = 788-0) 15.0 % 12.0-15.5 PLT (test code = 777-3) 347 166-358 MPV (test code = 66405-3) 9.4 fL 9.5-12.9 L NRBC/100 WBC (test code = 4976076245) 0.0 0.0-10.0 NRBC x10^3 (test code = 4648102028) See_Comment [Automated messa ge] The system which generated this result transmitted reference range: 10*3/?L. The reference range was not used to interpret this result as normal/abnormal. GRAN MAT (NEUT) % (test code = 770-8) 60.2 % IMM GRAN % (test code = 3852025256) 0.40 % LYMPH % (test code = 736-9) 31.3 % MONO % (test code = 5905-5) 5.8 % EOS % (test code = 713-8) 1.8 % BASO % (test code = 706-2) 0.5 % GRAN MAT x10^3(ANC) (test code = 0425313779) 6.36 10*3/uL 1.88-7.09 IMM GRAN x10^3 (test code = 5740254644) 0.04 10*3/uL 0.00-0.06 LYMPH x10^3 (test code = 731-0) 3.30 10*3/uL 1.32-3.29 H MONO x10^3 (test code = 742-7) 0.61 10*3/uL 0.33-0.92 EOS x10^3 (test code = 711-2) 0.19 10*3/uL 0.03-0.39 BASO x10^3 (test code = 704-7) 0.05 10*3/uL 0.01-0.07 Lab Interpretation (test code = 57388-8) Abnormal [facility] StationQuang [id number] 07:55:17* Test Item Value Reference Range Interpretation Comme nts TROPONIN I (test code = 3308203761) 0.000 ng/mL <=0.034 DARWIN (test code = [...] of biotin. Lab Interpretation (test code = 46337-2) Normal [facility] StationXR CHEST 1 [id number] 06:16:28Exam: Chest (1 View), 06/06/2024 11:30 PM. Ordering Physician: BOB GARCIA. History: Chest pain. Technique: AP view of the chest. Technical Quality: Adequate. Comparison: Chest radiograph 05/17/2024. Findings: Normal cardiac silhouette size. ?No airspace consolidation, pleuraleffusion, or pneumothorax. No acute osseous abnormality.[facility] StationPOCT [id number] 05:19:00* Test Item Value Reference Range Interpretation Comme nts POCT PREG (test code = 1605) Negative On board controls acceptable with C Line (test code = 3574) Yes POCT PREG LOT # (test code = 3575) [id number] POCT PREG TEST DATE ( test code = 3576) 04/11/2025 Lab Interpretation (test cod e = 77703-0) Normal [facility] StationTroponin [id number] 05:00:24* Test Item Value Reference Range Interpretation Comme nts TROPONIN I (test code = 5161142776) 0.000 ng/mL <=0.034 DARWIN (test code = [...] of biotin. Lab Interpretation (test code = 13493-6) Normal [facility] StationComp. Metabolic Panel (01584)2024-06-07 05:00:19* Test Item Value Reference Range Interpretation Comme nts NA (test code = 2292059462) 139 mmol/L 135-145 K (test code = 5076339105) 3.6 mmol/L 3.5-5.0 CL (test code = 4315360140) 108 mmol/L 98-108 CO2 TOTAL (test code = 6130686172) 22 mmol/L 23-31 L AGAP (test code = 4850199411) 9 2-16 BUN (test code = 1503922194) 10 mg/dL 7-23 GLUCOSE (test code = 5881678090) 144 mg/dL 70-110 H CREATININE (test code = 2160-0) 0.62 mg/dL 0.50-1.04 TOTAL BILI (test code = 0887470514) 0.1-1.1 L CALCIUM (test code = 9924249445) 9.2 mg/dL 8.6-10.6 T PROTEIN (test code = 2056659207) 6.5 g/dL 6.3-8.2 ALBUMIN (test code = 9396743365) 3.7 g/dL 3.5-5.0 ALK PHOS (test code = 2172966580) 69 U/L 34-122 ALTv (test code = 1742-6) 14 U/L 5-35 AST(SGOT) (test code = 5201824050) 15 U/L 13-40 eGFR (test code = 07100-8) 112.1 mL/min/1.73m2 CKD-EPI eGFR (2020). Assuming creatinine has been stable day-to-day for at least three months, the eGFR indicates Category G1 (>= 90 mL/min/1.73 m2) Lab Interpretation (test code = 99550-8) Abnormal [facility] with Spiv0476-31-73 04:38:25* Test Item Value Reference Range Interpretation [...] 32.8 g/dL 31.6-35.1 RDW-SD (test code = 47839-3) 44.1 fL 39.0-49.9 RDW-CV (test code = 788-0) 14.9 % 12.0-15.5 PLT (test code = 777-3) 358 166-358 MPV (test code = 42931-9) 9.4 fL 9.5-12.9 L NRBC/100 WBC (test code = 5217949367) 0.0 0.0-10.0 NRBC x10^3 (test code = 0851735495) See_Comment [Automated messa ge] The system which generated this result transmitted reference range: 10*3/?L. The reference range was not used to interpret this result as normal/abnormal. GRAN MAT (NEUT) % (test code = 770-8) 58.2 % IMM GRAN % (test code = 2960485580) 0.40 % LYMPH % (test code = 736-9) 34.1 % MONO % (test code = 5905-5) 4.7 % EOS % (test code = 713-8) 2.3 % BASO % (test code = 706-2) 0.3 % GRAN MAT x10^3(ANC) (test code = 8070017498) 5.33 10*3/uL 1.88-7.09 IMM GRAN x10^3 (test code = 2293203987) 0.04 10*3/uL 0.00-0.06 LYMPH x10^3 (test code = 731-0) 3.12 10*3/uL 1.32-3.29 MONO x10^3 (test code = 742-7) 0.43 10*3/uL 0.33-0.92 EOS x10^3 (test code = 711-2) 0.21 10*3/uL 0.03-0.39 BASO x10^3 (test code = 704-7) 0.03 10*3/uL 0.01-0.07 Lab Interpretation (test code = 53161-7) Abnormal [facility] StationCT HEAD WO IWMKHQOU5091-09-03 18:53:41EXAM: CT HEAD WO CONTRAST HISTORY: 44 [...] unremarkable.[facility] StationXR FOREARM 2 VW [id number] 04:08:39EXAM: XR HAND 3+ VW RIGHT, XR [...] swelling.[facility] StationXR HAND 3+ VW [id number] 04:08:39EXAM: XR HAND 3+ VW RIGHT, XR [...] swelling.[facility] StationXR ELBOW <3 VW [id number] 04:08:39EXAM: XR HAND 3+ VW RIGHT, XR [...] radiopaqueforeign body. Mild diffuse soft tissue swelling. [facility] MAXILLOFACIAL/MANDIBLE WO CONTRAST 2024-05-18 03:36:27ORDERING PHYSICIAN:TAMMY ?ESTELA CLINICAL INFORMATION: ? Facial trauma, blunt [...] no evidence of retrobulbar hematomas or retroconal fatstranding.[facility] CERVICAL SPINE WO CONTRAST 2024-05-18 03:28:19ORDERING PHYSICIAN: Jayant EDUARDO ?ESTELA HISTORY: Neck trauma, dangerous injury mechanism [...] tissues arenormal. The visualized lung apices are clear.[facility] Zyly4644-76-69 02:00:00* Test Item Value Reference Range Interpretation Comme nts POCT PREG (test code = 1605) Negative On board controls acceptable with C Line (test code = 3574) Yes Lab Interpretation (test cod e = 16277-1) Normal [facility]. Metabolic Panel (93112)2024-05-08 01:19:56* Test Item Value Reference Range Interpretation Comme nts NA (test code = 2325613338) 139 mmol/L 135-145 K (test code = 8767547587) 3.3 mmol/L 3.5-5.0 L CL (test code = 8739098165) 107 mmol/L 98-108 CO2 TOTAL (test code = 3707944876) 22 mmol/L 23-31 L AGAP (test code = 7670577841) 10 2-16 BUN (test code = 8613067048) 5 mg/dL 7-23 L GLUCOSE (test code = 7290387472) 131 mg/dL 70-110 H CREATININE (test code = 2160-0) 0.72 mg/dL 0.50-1.04 TOTAL BILI (test code = 7864683085) 0.1-1.1 L CALCIUM (test code = 6995303055) 9.3 mg/dL 8.6-10.6 T PROTEIN (test code = 4476402303) 7.0 g/dL 6.3-8.2 ALBUMIN (test code = 1636574257) 4.1 g/dL 3.5-5.0 ALK PHOS (test code = 6441247144) 76 U/L 34-122 ALTv (test code = 1742-6) 27 U/L 5-35 AST(SGOT) (test code = 6982585200) 30 U/L 13-40 eGFR (test code = 54094-3) 105.2 mL/min/1.73m2 CKD-EPI eGFR (2020). Assuming creatinine has been stable day-to-day for at least three months, the eGFR indicates Category G1 (>= 90 mL/min/1.73 m2) Lab Interpretation (test code = 02348-5) Abnormal [facility] StationTryen [id number] 01:18:54* Test Item Value Reference Range Interpretation Comme nts TROPONIN I (test code = 0079563006) 0.003 ng/mL <=0.034 DARWIN (test code = [...] of biotin. Lab Interpretation (test code = 01549-7) Normal [facility] StationMagnesium2024-11-01 01:07:50* Test Item Value Reference Range Interpretation Comme nts MAGNESIUM (test code = 4218184976) 1.7 mg/dL 1.7-2.4 Lab Interpretation (test cod e = 66225-0) Normal [facility] StationLipase2024-11-01 01:07:30* Test Item Value Reference Range Interpretation Comme nts LIPASE (test code = 5935895997) 97 U/L 0-220 Lab Interpretation (test cod e = 54695-0) Normal [facility] StationCbc with Dien0609-31-01 00:51:30* Test Item Value Reference Range Interpretation [...] 33.2 g/dL 31.6-35.1 RDW-SD (test code = 95144-6) 43.6 fL 39.0-49.9 RDW-CV (test code = 788-0) 14.8 % 12.0-15.5 PLT (test code = 777-3) 382 166-358 H MPV (test code = 06931-5) 9.7 fL 9.5-12.9 NRBC/100 WBC (test code = 4136808133) 0.0 0.0-10.0 NRBC x10^3 (test code = 2341381225) See_Comment [Automated messa ge] The system which generated this result transmitted reference range: 10*3/?L. The reference range was not used to interpret this result as normal/abnormal. GRAN MAT (NEUT) % (test code = 770-8) 63.3 % IMM GRAN % (test code = 5330197052) 0.40 % LYMPH % (test code = 736-9) 27.5 % MONO % (test code = 5905-5) 5.4 % EOS % (test code = 713-8) 2.9 % BASO % (test code = 706-2) 0.5 % GRAN MAT x10^3(ANC) (test code = 3308289818) 7.25 10*3/uL 1.88-7.09 H IMM GRAN x10^3 (test code = 0368157462) 0.05 10*3/uL 0.00-0.06 LYMPH x10^3 (test code = 731-0) 3.15 10*3/uL 1.32-3.29 MONO x10^3 (test code = 742-7) 0.62 10*3/uL 0.33-0.92 EOS x10^3 (test code = 711-2) 0.33 10*3/uL 0.03-0.39 BASO x10^3 (test code = 704-7) 0.06 10*3/uL 0.01-0.07 Lab Interpretation (test code = 00764-1) Abnormal [facility] or plasma cardiac troponin I panel by high sensitivity tnural1102-29-26 17:16:00* Test Item Value Reference Range Interpretation Comme nts Troponin T High Sensitivity (test code = 65882-7) < 6.0 [facility] CtrSerum or plasma glucose measurement (mass/volume) 2024-04-10 17:14:00* Test Item Value Reference Range Interpretation Comme nts Random Glucose (test code = 2345-7) 109 [facility] CtrSerum or plasma urea nitrogen measurement (mass/volume)2024-04-10 17:14:00* Test Item Value Reference Range Interpretation Comme nts Blood Urea Nitrogen (test co de = 3094-0) 4 [facility] TbhUGC9725-38-31 17:14:00* Test Item Value Reference Range Interpretation Comme nts Aspartate Amino Transf (AST/ SGOT) (test code = STD9425) 14 [facility] CtrBilirubin kmfud8186-90-47 17:14:00* Test Item Value Reference Range Interpretation Comme nts Total Bilirubin (test code = GUF3243) < 0.2 [facility] CtrEstimated glomerular filtration rate (GFR) sgvqlpgnpiyef4829-66-53 17:14:00* Test Item Value Reference Range Interpretation Comme nts Glomerular Filtration Rate C alc (test code = 538743992) > 60.00 [facility] CtrBUN/creatinine ihopi1889-55-42 17:14:00* Test Item Value Reference Range Interpretation Comme nts BUN/Creatinine Ratio (test c ode = 17350615) 7.3 [facility] VsjQP34206-73-66 17:14:00* Test Item Value Reference Range Interpretation Comme nts Carbon Dioxide Level (test c ode = 21684157) 22 [facility] CtrAnion gap cpmyhadzasw9301-03-73 17:14:00* Test Item Value Reference Range Interpretation Comme nts Anion Gap (test code = 79475439) 16.6 [facility] CtrCalcium hueke7707-31-74 17:14:00* Test Item Value Reference Range Interpretation Comme nts Calcium Level (test code = 43538224) 9.9 [facility] CtrGlobulin owh4267-26-66 17:14:00* Test Item Value Reference Range Interpretation Comme nts Globulin (test code = 883121563) 3.1 [facility] CtrALT (SGPT) ser/rvqt0603-00-82 17:14:00* Test Item Value Reference Range Interpretation Comme nts Alanine Aminotransferase (AL T/SGPT) (test code = 1742-6) 10 [facility] CtrAmylase gpiex0923-13-39 17:14:00* Test Item Value Reference Range Interpretation Comme nts Amylase Level (test code = 1798-8) 48 [facility] ObzBabaij1306-75-60 17:14:00* Test Item Value Reference Range Interpretation Comme nts Lipase (test code = 56867776) 24 [facility] CtrALP ser/pjdj9926-85-33 17:14:00* Test Item Value Reference Range Interpretation Comme nts Total Alkaline Phosphatase ( test code = 6768-6) 92 [facility] CtrOpiates ygylj2161-81-82 17:13:00* Test Item Value Reference Range Interpretation Comme nts Urine Opiates Screen (test c ode = 334006453) NEGATIVE [facility] CtrUrine hydrocodone measurement (mass/volume) 2024-04-10 17:13:00* Test Item Value Reference Range Interpretation Comme nts Hydrocodone Level (test code = 3681-4) NEGATIVE [facility] CtrUrine fentanyl measurement by confirmatory method (mass/volume)2024-04-10 17:13:00* Test Item Value Reference Range Interpretation Comme nts Urine Fentanyl Screen (test code = 14457-8) NEGATIVE [facility] CtrPhencyclidine (PCP) ge5474-69-54 17:13:00* Test Item Value Reference Range Interpretation Comme nts Urine Phencyclidine (PCP) Le edilson (test code = 864122851) NEGATIVE [facility] CtrPropoxyphene [Mass/volume] in Sffvf5370-16-20 17:13:00* Test Item Value Reference Range Interpretation Comme nts Propoxyphene Level (test cod e = 3545-1) NEGATIVE [facility] CtroxyCODONE [Mass/volume] in Vzopq0100-10-29 17:13:00* Test Item Value Reference Range Interpretation Comme nts Oxycodone Level (test code = 39044-0) NEGATIVE [facility] CtrAmphetamine ur oqpxul6416-84-32 17:13:00* Test Item Value Reference Range Interpretation Comme nts Urine Amphetamines Screen (t est code = 12468-8) NEGATIVE [facility] YrrVewipmytt2445-22-68 17:13:00* Test Item Value Reference Range Interpretation Comme nts Methadone Level (test code = VDR6900) NEGATIVE [facility] CtrBenzodiazepines screen dp6828-70-88 17:13:00* Test Item Value Reference Range Interpretation Comme nts Urine Benzodiazepines Screen (test code = 105345873) POSITIVE [facility] CtrCannabinoids (0-bbqzeui-QTW) wgcdkurnolf0159-30-39 17:13:00* Test Item Value Reference Range Interpretation Comme nts Urine Cannabinoids (test cod e = 168119448) NEGATIVE [facility] CtrCocaine metabolite ripmka5289-54-17 17:13:00* Test Item Value Reference Range Interpretation Comme nts Urine Cocaine Metabolite (te st code = 674249867) NEGATIVE [facility] CtrUrine leukocyte esterase owoyaykeg8015-61-81 17:10:00* Test Item Value Reference Range Interpretation Comme nts Urine Leukocyte Esterase (te st code = 074556034) 3+ [facility] CtrRBC count ur vwbr2237-50-70 17:08:00* Test Item Value Reference Range Interpretation Comme nts Urine RBC (test code = 798-9) 0-2 [facility] CtrUrine examination for white blood cells (WBC) 2024-04-10 17:08:00* Test Item Value Reference Range Interpretation Comme nts Urine WBC (test code = 269700631) >100 [facility] CypressAutomated epithelial cells count in urine sediment (number/area)2024-04-10 17:08:00* Test Item Value Reference Range Interpretation Comme nts Urine Epithelial Cells (test code = 12087-5) 6-10 [facility] CtrBacteria detection in urine sediment by light fbiiwrjmid2517-29-16 17:08:00* Test Item Value Reference Range Interpretation Comme nts Urine Bacteria (test code = 40560-7) Few [facility]ress[facility] casts detection by automated method 2024-04-10 17:08:00* Test Item Value Reference Range Interpretation Comme nts Urine Casts (test code = 32248-9) 0-2 [facility] CtrHCG ur [id number] 17:03:00* Test Item Value Reference Range Interpretation Comme nts Urine HCG, Qualitative (test code = 2106-3) NEGATIVE [facility] CtrColor of Urine by [id number] 17:03:00* Test Item Value Reference Range Interpretation Comme nts Urine Color (test code = 84662-3) Yellow [facility] CtrAppearance of [id number] 17:03:00* Test Item Value Reference Range Interpretation Comme nts Urine Appearance (test code = 5767-9) Cloudy [facility] CtrUrine glucose [id number] 17:03:00* Test Item Value Reference Range Interpretation Comme nts Urine Glucose (UA) (test cod e = 2349-9) Negative [facility] CtrBilirubin [id number] 17:03:00* Test Item Value Reference Range Interpretation Comme nts Urine Bilirubin (test code = 550924506) Negative [facility] CtrKetones [id number] 17:03:00* Test Item Value Reference Range Interpretation Comme nts Urine Ketones (test code = 37421658) [facility] [facility] CtrSpecific gravity of Urine by Automated test strip 2024-04-10 17:03:00* Test Item Value Reference Range Interpretation Comme nts Urine Specific [place] (test code = 55969-7) 1.006 [facility] CtrUrine blood [id number] 17:03:00* Test Item Value Reference Range Interpretation Comme nts Urine Blood (test code = 81631-5) Nonhemolyzed Trace [facility] CtrpH [id number] 17:03:00* Test Item Value Reference Range Interpretation Comme nts Urine pH (test code = 2756-5) 6.000 [facility] CtrProtein [id number] 17:03:00* Test Item Value Reference Range Interpretation Comme nts Urine Protein (test code = 96980468) Negative [facility] CtrUrobilinogen, urine, [id number] 17:03:00* Test Item Value Reference Range Interpretation Comme nts Urine Urobilinogen (test cod e = 400647238) 0.2 [facility] CtrUrine nitrate vminunhdu4315-03-27 17:03:00* Test Item Value Reference Range Interpretation Comme nts Urine Nitrate (test code = 27539-7) Negative [facility] CtrAbsolute eosinophil [id number] 17:00:00* Test Item Value Reference Range Interpretation Comme nts Eosinophils # (Auto) (test c ode = UWX3973) 0.25 [facility] CtrRBC [id number] 17:00:00* Test Item Value Reference Range Interpretation Comme nts Red Blood Count (test code = 40596265) 5.17 [facility] KeyMimndaxnab5767-02-17 17:00:00* Test Item Value Reference Range Interpretation Comme [facility] Hematocrit (test code = 40075783) 41.9 [facility] CtrMCV (mean corpuscular volume) determination 2024-04-10 17:00:00* Test Item Value Reference Range Interpretation Comme [facility] Mean Corpuscular Volume (shailesh t code = 83688-9) 81.0 [facility] CtrMean corpuscular hemoglobin (MCH) determination 2024-04-10 17:00:00* Test Item Value Reference Range Interpretation Comme [facility] Mean Corpuscular Hemoglobin (test code = 83443606) 26.1 [facility] corpus[facility] hemoglobin concentration (MCHC) keuckcbtjcikd5324-70-20 17:00:00* Test Item Value Reference Range Interpretation Comme [facility] Mean Corpuscular Hemoglobin Concent (test code = 45002391) 32.2 [facility] CtrRBC distribution width coefficient of variation 2024-04-10 17:00:00* Test Item Value Reference Range Interpretation Comme [facility] Red Cell Distribution Width (test code = 07071729) 15.2 [facility] CtrPlatelet slxvg0154-37-81 17:00:00* Test Item Value Reference Range Interpretation Comme [facility] Platelet Count (test code = 34201662) 343 [facility]ressMean platelet mjdbor6665-43-95 17:00:00* Test Item Value Reference Range Interpretation Comme [facility] Mean Platelet Volume (test c ode = 60021176) 9.3 [facility] CtrNeutrophils seg % [id number] 17:00:00* Test Item Value Reference Range Interpretation Comme [facility] Neutrophils (%) (Auto) (test code = 13364-5) 71.4 [facility] CtrAbsolute immature granulocyte ydgqx5287-83-76 17:00:00* Test Item Value Reference Range Interpretation Comme [facility] Absolute Immature Granulocyt e (auto (test code = 68159-8) 0.05 [facility] CtrBlood band neutrophils count (number/volume) 2024-04-10 17:00:00* Test Item Value Reference Range Interpretation Comme [facility] Neutrophils # (Auto) (test c ode = 48358-3) 8.20 [facility] CtrAbsolute lymphocyte xeiww4841-12-74 17:00:00* Test Item Value Reference Range Interpretation Comme nts Lymphocytes # (Auto) (test c ode = 72459-2) 2.42 [facility] CtrAbsolute basophil xzlij7334-46-33 17:00:00* Test Item Value Reference Range Interpretation Comme nts Basophils # (Auto) (test cod e = 61919874) 0.03 [facility] CtrAbsolute NRBC xrdsn4299-63-68 17:00:00* Test Item Value Reference Range Interpretation Comme nts Nucleated Red Blood Cells # (test code = 670067565) 0 [facility] CtrCT ABDOMEN PELVIS WO [id number] 00:27:38 Ordering Physician: JACQUE ROJO Clinical indication: Nausea and vomiting Comparison: [...] [facility] StationComplete Metabolic Mqoib3640-68-25 23:13:34* Test Item Value Reference Range Interpretation Comme nts NA (test code = 3013787252) 136 mmol/L 135-145 K (test code = 1012842643) 3.7 mmol/L 3.5-5.0 CL (test code = 0279516070) 106 mmol/L 98-108 CO2 TOTAL (test code = 2895103956) 20 mmol/L 23-31 L AGAP (test code = 6814775600) 10 2-16 BUN (test code = 8294453696) 6 mg/dL 7-23 L GLUCOSE (test code = 8818012118) 149 mg/dL 70-110 H CREATININE (test code = 2160-0) 0.63 mg/dL 0.50-1.04 TOTAL BILI (test code = 0880125735) 0.3 mg/dL 0.1-1.1 CALCIUM (test code = 1718440840) 9.2 mg/dL 8.6-10.6 T PROTEIN (test code = 9930172059) 7.4 g/dL 6.3-8.2 ALBUMIN (test code = 7096633156) 4.3 g/dL 3.5-5.0 ALK PHOS (test code = 4783165749) 74 U/L 34-122 ALTv (test code = 1742-6) 20 U/L 5-35 AST(SGOT) (test code = 6291309453) 22 U/L 13-40 eGFR (test code = 22247-9) 111.6 mL/min/1.73m2 CKD-EPI eGFR (2020). Assuming creatinine has been stable day-to-day for at least three months, the eGFR indicates Category G1 (>= 90 mL/min/1.73 m2) Lab Interpretation (test code = 54853-2) [facility]normal [facility] StationLipase, Nhqkd3419-54-01 23:12:53* Test Item Value Reference Range Interpretation Comme nts LIPASE (test code = 2188645566) 104 U/L 0-220 Lab Interpretation (test cod e = 70021-1) Normal [facility] StationPOCT Bozb0145-62-70 23:01:00* Test Item Value Reference Range Interpretation Comme nts POCT PREG (test code = 1605) Negative On board controls acceptable with C Line (test code = 3574) Yes POCT PREG LOT # (test code = 3575) [id number] POCT PREG TEST DATE ( test code = 3576) Lab Interpretation (test cod e = 39313-1) Normal [facility] StationCBC with Bwxtkwhefxqm2804-79-66 23:00:31* Test Item Value Reference Range Interpretation [...] 33.0 g/dL 31.6-35.1 RDW-SD (test code = 73381-1) 45.5 fL 39.0-49.9 RDW-CV (test code = 788-0) 15.3 % 12.0-15.5 PLT (test code = 777-3) 370 166-358 H MPV (test code = 68648-5) 9.3 fL 9.5-12.9 L NRBC/100 WBC (test code = 4864175216) 0.0 0.0-10.0 NRBC x10^3 (test code = 3811048167) See_Comment [Automated messa ge] The system which generated this result transmitted reference range: 10*3/?L. The reference range was not used to interpret this result as normal/abnormal. GRAN MAT (NEUT) % (test code = 770-8) 71.8 % IMM GRAN % (test code = 6926733035) 0.60 % LYMPH % (test code = 736-9) 20.9 % MONO % (test code = 5905-5) 4.9 % EOS % (test code = 713-8) 1.4 % BASO % (test code = 706-2) 0.4 % GRAN MAT x10^3(ANC) (test code = 9463607178) 9.75 10*3/uL 1.88-7.09 H IMM GRAN x10^3 (test code = 5195736056) 0.08 10*3/uL 0.00-0.06 H LYMPH x10^3 (test code = 731-0) 2.83 10*3/uL 1.32-3.29 MONO x10^3 (test code = 742-7) 0.66 10*3/uL 0.33-0.92 EOS x10^3 (test code = 711-2) 0.19 10*3/uL 0.03-0.39 BASO x10^3 (test code = 704-7) 0.05 10*3/uL 0.01-0.07 Lab Interpretation (test code = 28444-0) Abnormal [facility] StationCT ABDOMEN PELVIS W [id number] 05:07:16ORDERING PHYSICIAN:BOB MUSA CLINICAL INFORMATION: ? Abdominal pain, fever [...] lesions.[facility] Complete Metabolic Vlqqd8870-52-44 04:38:59* Test Item Value Reference Range Interpretation Comme nts NA (test code = 7293739065) 138 mmol/L 135-145 K (test code = 7587280984) 3.7 mmol/L 3.5-5.0 CL (test code = 6441890652) 108 mmol/L 98-108 CO2 TOTAL (test code = 1591682655) 22 mmol/L 23-31 L AGAP (test code = 8707916242) 8 2-16 BUN (test code = 2788820283) 12 mg/dL 7-23 GLUCOSE (test code = 7914271260) 98 mg/dL 70-110 CREATININE (test code = 2160-0) 0.62 mg/dL 0.50-1.04 TOTAL BILI (test code = 7841610084) 0.4 mg/dL 0.1-1.1 CALCIUM (test code = 2726161848) 8.9 mg/dL 8.6-10.6 T PROTEIN (test code = 4167772377) 7.1 g/dL 6.3-8.2 ALBUMIN (test code = 0461887860) 3.8 g/dL 3.5-5.0 ALK PHOS (test code = 1526092598) 89 U/L 34-122 ALTv (test code = 1742-6) 17 U/L 5-35 AST(SGOT) (test code = 7437717291) 22 U/L 13-40 eGFR (test code = 47177-2) 112.8 mL/min/1.73m2 CKD-EPI eGFR (2020). Assuming creatinine has been stable day-to-day for at least three months, the eGFR indicates Category G1 (>= 90 mL/min/1.73 m2) Lab Interpretation (test code = 81482-7) Abnormal [facility] StationLipase, Truva1113-34-24 04:38:58* Test Item Value Reference Range Interpretation Comme nts LIPASE (test code = 3717986322) 136 U/L 0-220 Lab Interpretation (test cod e = 25786-9) Normal [facility] StationCBC with Seumbdmpogku1909-55-37 04:19:14* Test Item Value Reference Range Interpretation [...] 32.2 g/dL 31.6-35.1 RDW-SD (test code = 81916-8) 50.2 fL 39.0-49.9 H RDW-CV (test code = 788-0) 17.3 % 12.0-15.5 H PLT (test code = 777-3) 377 166-358 H MPV (test code = 25207-1) 9.4 fL 9.5-12.9 L NRBC/100 WBC (test code = 0809127464) 0.0 0.0-10.0 NRBC x10^3 (test code = 6802196536) See_Comment [Automated messa ge] The system which generated this result transmitted reference range: 10*3/?L. The reference range was not used to interpret this result as normal/abnormal. GRAN MAT (NEUT) % (test code = 770-8) 65.3 % IMM GRAN % (test code = 6837252494) 0.40 % LYMPH % (test code = 736-9) 26.1 % MONO % (test code = 5905-5) 6.2 % EOS % (test code = 713-8) 1.6 % BASO % (test code = 706-2) 0.4 % GRAN MAT x10^3(ANC) (test code = 4174852744) 7.33 10*3/uL 1.88-7.09 H IMM GRAN x10^3 (test code = 0151716732) 0.04 10*3/uL 0.00-0.06 LYMPH x10^3 (test code = 731-0) 2.93 10*3/uL 1.32-3.29 MONO x10^3 (test code = 742-7) 0.70 10*3/uL 0.33-0.92 EOS x10^3 (test code = 711-2) 0.18 10*3/uL 0.03-0.39 BASO x10^3 (test code = 704-7) 0.05 10*3/uL 0.01-0.07 Lab Interpretation (test code = 17191-0) Abnormal [facility] ESWU1663-72-53 03:40:00* Test Item Value Reference Range Interpretation Comme nts POCT PREG (test code = 1605) Negative On board controls acceptable with C Line (test code = 3574) Yes POCT PREG LOT # (test code = 3575) [id number] POCT PREG TEST DATE ( test code = 3576) 2024-10-13 Lab Interpretation (test cod e = 16640-1) Normal [facility] StationXR [id number] 04:35:04Ordering physician: ROBERTO RICHARDS INDICATION: Abdominal pain COMPARISON: CT of the abdomen and pelv is dated 03/09/2023 FINDINGS: Supine AP view of the abdomen and pelvis. There is no bowelobstruction or generalized constipation.[facility] StationPOCT Wpaw1040-98-06 02:30:00* Test Item Value Reference Range Interpretation Comme nts POCT PREG (test code = 1605) Negative On board controls acceptable with C Line (test code = 3574) Yes POCT PREG LOT # (test code = 3575) [id number] POCT PREG TEST DATE ( test code = 3576) 2024-09-15 Lab Interpretation (test cod e = 33376-7) Normal [facility] StationCBC WITH [id number] 00:05:06* Test Item Value Reference Range Interpretation Comme nts WBC (test code = 6690-2) 12.06 See_Comment H [Automated [employer] ge] The system which generated this result transmitted reference range: 4.30 - 11.10 10*3/?L. The reference range was not used to interpret this result as normal/abnormal. RBC (test code = 789-8) 5.18 See_Comment [Automated [employer] Signdat] The system which generated this result transmitted [...] 34.2 g/dL 31.6-35.1 RDW-SD (test code = 14717-3) 41.5 fL 39.0-49.9 RDW-CV (test code = 788-0) 14.5 % 12.0-15.5 PLT (test code = 777-3) 384 See_Comment H [Automated messa ge] The system which generated this result transmitted reference range: 166 - 358 10*3/?L. The reference range was not used to interpret this result as normal/abnormal. MPV (test code = 74829-8) 9.6 fL 9.5-12.9 GRAN MAT (NEUT) % (test code = 770-8) 66.0 % IMM GRAN % (test code = 6556933093) 0.50 % LYMPH % (test code = 736-9) 27.4 % MONO % (test code = 5905-5) 4.6 % EOS % (test code = 713-8) 1.1 % BASO % (test code = 706-2) 0.4 % GRAN MAT x10^3(ANC) (test code = 5381416808) 7.96 10*3/uL 1.88-7.09 H IMM GRAN x10^3 (test code = 1381767361) 0.06 10*3/uL 0.00-0.06 LYMPH x10^3 (test code = 731-0) 3.30 10*3/uL 1.32-3.29 H MONO x10^3 (test code = 742-7) 0.56 10*3/uL 0.33-0.92 EOS x10^3 (test code = 711-2) 0.13 10*3/uL 0.03-0.39 BASO x10^3 (test code = 704-7) 0.05 10*3/uL 0.01-0.07 Lab Interpretation (test code = 32140-6) [facility] ([id number])2023-[facility]-09 23:27:13* Test Item Value Reference Range Interpretation Comme nts NA (test code = 5810463880) 137 mmol/L 135-145 K (test code = 0332986065) 3.3 mmol/L 3.5-5.0 L CL (test code = 0734581519) 103 mmol/L 98-108 CO2 TOTAL (test code = 1196586955) 20 mmol/L 23-31 L AGAP (test code = 5517509413) 14 2-16 BUN (test code = 5372926546) 5 mg/dL 7-23 L GLUCOSE (test code = 2669001181) 146 mg/dL 70-110 H CREATININE (test code = 0515025986) 0.60 mg/dL 0.50-1.04 TOTAL BILI (test code = 8446012780) 0.3 mg/dL 0.1-1.1 CALCIUM (test code = 3211283121) 9.3 mg/dL 8.6-10.6 T PROTEIN (test code = 0001526176) 7.9 g/dL 6.3-8.2 ALBUMIN (test code = 3340179702) 4.4 g/dL 3.5-5.0 ALK PHOS (test code = 7280444446) 105 U/L 34-122 ALTv (test code = 1742-6) 38 U/L 5-35 H AST(SGOT) (test code = 4984924991) 21 U/L 13-40 eGFR (test code = 83515-4) 113.7 mL/min/1.73m2 CKD-EPI eGFR (2020). Assuming creatinine has been stable day-to-day for at least three months, the eGFR indicates Category G1 (>= 90 mL/min/1.73 m2) Lab Interpretation (test code = 22198-7) [facility]normal [facility] StationLIPASE2023-11-02 23:27:13* Test Item Value Reference Range Interpretation Comme nts LIPASE (test code = 7615822617) 142 U/L 0-220 Lab Interpretation (test cod e = 24640-2) Normal [facility] StationCOMP. METABOLIC PANEL (90805)2023-04-30 23:41:47* Test Item Value Reference Range Interpretation Comme nts NA (test code = 9107924274) 139 mmol/L 135-145 K (test code = 3980910556) 3.3 mmol/L 3.5-5.0 L CL (test code = 2586614162) 105 mmol/L 98-108 CO2 TOTAL (test code = 5771066754) 20 mmol/L 23-31 L AGAP (test code = 3929356602) 14 2-16 BUN (test code = 7690898195) 6 mg/dL 7-23 L GLUCOSE (test code = 1911625603) 119 mg/dL 70-110 H CREATININE (test code = 5605423319) 0.59 mg/dL 0.50-1.04 TOTAL BILI (test code = 9388277221) 0.3 mg/dL 0.1-1.1 CALCIUM (test code = 5907772877) 9.7 mg/dL 8.6-10.6 T PROTEIN (test code = 4510521308) 7.6 g/dL 6.3-8.2 ALBUMIN (test code = 3034373094) 4.2 g/dL 3.5-5.0 ALK PHOS (test code = 4765060277) 78 U/L 34-122 ALTv (test code = 1742-6) 24 U/L 5-35 AST(SGOT) (test code = 6598997333) 24 U/L 13-40 eGFR (test code = 4790669772) 110.7 mL/min/1.73m2 DARWIN (test code = DARWIN) [...] imaging tests). Lab Interpretation (test code = 70514-4) Abnormal [facility] WITH [id number] 23:29:07* Test Item Value Reference Range Interpretation Comme nts WBC (test code = 6690-2) 11.56 See_Comment H [Automated [employer] Signdat] The system which generated this result transmitted reference range: 4.30 - 11.10 10*3/?L. The reference range was not used to interpret this result as normal/abnormal. RBC (test code = 789-8) 5.02 See_Comment [Automated [employer] Signdat] The system which generated this result transmitted [...] 33.7 g/dL 31.6-35.1 RDW-SD (test code = 33120-9) 41.5 fL 39.0-49.9 RDW-CV (test code = 788-0) 14.3 % 12.0-15.5 PLT (test code = 777-3) 335 See_Comment [Automated [employer] Signdat] The system which generated this result transmitted reference range: 166 - 358 10*3/?L. The reference range was not used to interpret this result as normal/abnormal. MPV (test code = 07108-1) 9.7 fL 9.5-12.9 NRBC/100 WBC (test code = 1314040126) 0.0 See_Comment [Automated me ssage] The system which generated this result transmitted reference range: 0.0 - 10.0 /100 WBCs. The reference range was not used to interpret this result as normal/abnormal. NRBC x10^3 (test code = 0440725784) See_Comment [Automated messa ge] The system which generated this result transmitted reference range: 10*3/?L. The reference range was not used to interpret this result as normal/abnormal. GRAN MAT (NEUT) % (test code = 770-8) 65.7 % IMM GRAN % (test code = 3963713621) 0.50 % LYMPH % (test code = 736-9) 25.4 % MONO % (test code = 5905-5) 6.7 % EOS % (test code = 713-8) 1.2 % BASO % (test code = 706-2) 0.5 % GRAN MAT x10^3(ANC) (test code = 2161603351) 7.59 10*3/uL 1.88-7.09 H IMM GRAN x10^3 (test code = 7457748967) 0.06 10*3/uL 0.00-0.06 LYMPH x10^3 (test code = 731-0) 2.94 10*3/uL 1.32-3.29 MONO x10^3 (test code = 742-7) 0.77 10*3/uL 0.33-0.92 EOS x10^3 (test code = 711-2) 0.14 10*3/uL 0.03-0.39 BASO x10^3 (test code = 704-7) 0.06 10*3/uL 0.01-0.07 Lab Interpretation (test code = 32374-2) [facility]normal [facility] StationPOCT [id number] 22:59:00* Test Item Value Reference Range Interpretation Comme nts POCT PREG (test code = 1605) Negative On board controls acceptable with C Line (test code = 3574) Yes POCT PREG LOT # (test code = 3575) [id number] POCT PREG TEST DATE ( test code = 3576) 07/10/2024 Lab Interpretation (test cod e = 77047-3) Normal [facility] StationTROPONIN [id number] 02:36:34* Test Item Value Reference Range Interpretation Comme [facility] TROPONIN I (test code = 9510807423) 0.000 ng/mL <=0.034 DARWIN (test code = [...] of biotin. Lab Interpretation (test code = 52345-6) Normal [facility] StationN-TERMINAL [id number]-[id number] 02:34:17* Test Item Value Reference Range Interpretation Comme [facility] NT-proBNP (test code = 38013-2) 40 pg/mL <=125 Lab Interpretation (test cod e = 85768-7) Normal [facility] StationACTIVATED PARTIAL THRMPLAS [id number] 02:33:37* Test Item Value Reference Range Interpretation Comme [facility] APTT Patient (test code = 3173-2) 25 See_Comment [Automated message] The system which generated this result transmitted reference range: 23 - 38 Seconds. The reference range was not used to interpret this result as normal/abnormal. DARWIN (test code = DARWIN) The [facility] patient population mean normal value for aPTT is 30 seconds. Lab Interpretation (test code = 70611-0) Normal [facility] StationPROTHROMBIN TIME / [id number] 02:31:36* Test Item Value Reference Range Interpretation Comme [facility] PROTIME PATIENT (test code = 5964-2) 12.6 See_Comment [Automated [employer] ge] The system which generated this result transmitted reference range: 12.0 - 14.7 Seconds. The reference range was not used to interpret this result as normal/abnormal. INR (test code = 6301-6) 1.0 Normal INR <1.1; Warfarin Therapeutic range 2.0 to 3.0 or 2.5 to 3.5, depending upon the indications. Lab Interpretation (test code = 11187-0) Normal [facility] StationCOMP. METABOLIC PANEL (21932)2023-04-17 02:24:56* Test Item Value Reference Range Interpretation Comme nts NA (test code = 6695255552) 142 mmol/L 135-145 K (test code = 0187967378) 3.1 mmol/L 3.5-5.0 L CL (test code = 3290663175) 108 mmol/L 98-108 CO2 TOTAL (test code = 0535241755) 20 mmol/L 23-31 L AGAP (test code = 9685785904) 14 2-16 BUN (test code = 2605846682) 4 mg/dL 7-23 L GLUCOSE (test code = 4504551482) 107 mg/dL 70-110 CREATININE (test code = 4690574428) 0.61 mg/dL 0.50-1.04 TOTAL BILI (test code = 6440710563) 0.2 mg/dL 0.1-1.1 CALCIUM (test code = 1935793123) 9.1 mg/dL 8.6-10.6 T PROTEIN (test code = 8101675483) 7.0 g/dL 6.3-8.2 ALBUMIN (test code = 0119850132) 3.9 g/dL 3.5-5.0 ALK PHOS (test code = 3034670895) 69 U/L 34-122 ALTv (test code = 1742-6) 21 U/L 5-35 AST(SGOT) (test code = 5163027879) 21 U/L 13-40 eGFR (test code = 2842701828) 106.5 mL/min/1.73m2 DARWIN (test code = DARWIN) [...] imaging tests). Lab Interpretation (test code = 18843-9) Abnormal [facility] StationLIPASE2023-10-11 02:24:56* Test Item Value Reference Range Interpretation Comme nts LIPASE (test code = 0879311008) 104 U/L 0-220 Lab Interpretation (test cod e = 39180-9) Normal [facility] WITH [id number] 02:13:31* Test Item Value Reference Range Interpretation Comme nts WBC (test code = 6690-2) 10.74 See_Comment [Automated [employer]] The system which generated this result transmitted reference range: 4.30 - 11.10 10*3/?L. The reference range was not used to interpret this result as normal/abnormal. RBC (test code = 789-8) 4.75 See_Comment [Automated [employer]] The system which generated this result transmitted [...] 34.5 g/dL 31.6-35.1 RDW-SD (test code = 66044-6) 39.1 fL 39.0-49.9 RDW-CV (test code = 788-0) 13.5 % 12.0-15.5 PLT (test code = 777-3) 324 See_Comment [Automated messa ge] The system which generated this result transmitted reference range: 166 - 358 10*3/?L. The reference range was not used to interpret this result as normal/abnormal. MPV (test code = 10566-4) 9.3 fL 9.5-12.9 L NRBC/100 WBC (test code = 4583796166) 0.0 See_Comment [Automated [employer] ssage] The system which generated this result transmitted reference range: 0.0 - 10.0 /100 WBCs. The reference range was not used to interpret this result as normal/abnormal. NRBC x10^3 (test code = 4816848152) See_Comment [Automated messa ge] The system which generated this result transmitted reference range: 10*3/?L. The reference range was not used to interpret this result as normal/abnormal. GRAN MAT (NEUT) % (test code = 770-8) 65.2 % IMM GRAN % (test code = 0735340444) 0.40 % LYMPH % (test code = 736-9) 26.5 % MONO % (test code = 5905-5) 5.8 % EOS % (test code = 713-8) 1.7 % BASO % (test code = 706-2) 0.4 % GRAN MAT x10^3(ANC) (test code = 8589322668) 7.01 10*3/uL 1.88-7.09 IMM GRAN x10^3 (test code = 4437716057) 0.04 10*3/uL 0.00-0.06 LYMPH x10^3 (test code = 731-0) 2.85 10*3/uL 1.32-3.29 MONO x10^3 (test code = 742-7) 0.62 10*3/uL 0.33-0.92 EOS x10^3 (test code = 711-2) 0.18 10*3/uL 0.03-0.39 BASO x10^3 (test code = 704-7) 0.04 10*3/uL 0.01-0.07 Lab Interpretation (test code = 76862-6) [facility]normal [facility] StationPO[facility] [id number] 02:11:00* Test Item Value Reference Range Interpretation Comme nts POCT PREG (test code = 1605) Negative On board controls acceptable with C Line (test code = 3574) Yes POCT PREG LOT # (test code = 3575) [id number] POCT PREG TEST DATE ( test code = 3576) 2024-09-04 Lab Interpretation (test cod e = 81393-6) Normal [facility] StationTROPONIN [id number] 23:59:14* Test Item Value Reference Range Interpretation Comme nts TROPONIN I (test code = 6014584891) 0.000 ng/mL <=0.034 DARWIN (test code = [...] of biotin. Lab Interpretation (test code = 45134-9) [facility]OL[facility] PANEL (08877)2023-04-08 23:47:52* Test Item Value Reference Range Interpretation Comme nts NA (test code = 5272023594) 138 mmol/L 135-145 K (test code = 5543930368) 3.4 mmol/L 3.5-5.0 L CL (test code = 8497936258) 103 mmol/L 98-108 CO2 TOTAL (test code = 5487792683) 22 mmol/L 23-31 L AGAP (test code = 8033033893) 13 2-16 BUN (test code = 8732385795) 6 mg/dL 7-23 L GLUCOSE (test code = 8725360566) 106 mg/dL 70-110 CREATININE (test code = 2838994033) 0.91 mg/dL 0.50-1.04 TOTAL BILI (test code = 1909807975) 0.2 mg/dL 0.1-1.1 CALCIUM (test code = 2158177546) 8.7 mg/dL 8.6-10.6 T PROTEIN (test code = 2335417840) 7.4 g/dL 6.3-8.2 ALBUMIN (test code = 4797603582) 4.1 g/dL 3.5-5.0 ALK PHOS (test code = 5080024780) 71 U/L 34-122 ALTv (test code = 1742-6) 28 U/L 5-35 AST(SGOT) (test code = 7020512543) 28 U/L 13-40 eGFR (test code = 5860525551) 67.2 mL/min/1.73m2 DARWIN (test code = DARWIN) [...] imaging tests). Lab Interpretation (test code = 56280-2) [facility] 23:47:52* Test Item Value Reference Range Interpretation Comme nts MAGNESIUM (test code = 0944299064) 2.0 mg/dL 1.7-2.4 Lab Interpretation (test cod e = 20399-0) [facility] 23:47:52* Test Item Value Reference Range Interpretation Comme nts LIPASE (test code = 0310988051) 74 U/L 0-220 Lab Interpretation (test cod e = 82041-4) Normal [facility] WITH [id number] 23:36:30* Test Item Value Reference Range Interpretation [...] 34.5 g/dL 31.6-35.1 RDW-SD (test code = 31689-5) 39.3 fL 39.0-49.9 RDW-CV (test code = 788-0) 13.6 % 12.0-15.5 PLT (test code = 777-3) 305 See_Comment [Automated messa ge] The system which generated this result transmitted reference range: 166 - 358 10*3/?L. The reference range was not used to interpret this result as normal/abnormal. MPV (test code = 01310-4) 9.6 fL 9.5-12.9 NRBC/100 WBC (test code = 9383490329) 0.0 See_Comment [Automated me ssage] The system which generated this result transmitted reference range: 0.0 - 10.0 /100 WBCs. The reference range was not used to interpret this result as normal/abnormal. NRBC x10^3 (test code = 9239191256) See_Comment [Automated messa ge] The system which generated this result transmitted reference range: 10*3/?L. The reference range was not used to interpret this result as normal/abnormal. GRAN MAT (NEUT) % (test code = 770-8) 66.5 % IMM GRAN % (test code = 8557330794) 0.30 % LYMPH % (test code = 736-9) 25.3 % MONO % (test code = 5905-5) 5.2 % EOS % (test code = 713-8) 2.3 % BASO % (test code = 706-2) 0.4 % GRAN MAT x10^3(ANC) (test code = 7919522915) 6.61 10*3/uL 1.88-7.09 IMM GRAN x10^3 (test code = 1307707066) 0.03 10*3/uL 0.00-0.06 LYMPH x10^3 (test code = 731-0) 2.52 10*3/uL 1.32-3.29 MONO x10^3 (test code = 742-7) 0.52 10*3/uL 0.33-0.92 EOS x10^3 (test code = 711-2) 0.23 10*3/uL 0.03-0.39 BASO x10^3 (test code = 704-7) 0.04 10*3/uL 0.01-0.07 Lab Interpretation (test code = 23436-1) [facility] StationPONY [id number] 02:51:00* Test Item Value Reference Range Interpretation Comme nts POCT PREG (test code = 1605) Negative On board controls acceptable with C Line (test code = 3574) Yes POCT PREG LOT # (test code = 3575) [id number] POCT PREG TEST DATE ( test code = 3576) 07/10/2024 Lab Interpretation (test cod e = 88679-2) [facility] StationPOCT [id number] 03:26:00* Test Item Value Reference Range Interpretation Comme nts POCT PREG (test code = 1605) Negative On board controls acceptable with C Line (test code = 3574) Yes POCT PREG LOT # (test code = 3575) [id number] POCT PREG TEST DATE ( test code = 3576) Lab Interpretation (test cod e = 13863-6) [facility]2023-08-11 22:35:38* Test Item Value Reference Range Interpretation Comme nts LIPASE (test code = 7341506348) 2049 U/L 0-220 H Lab Interpretation (test cod e = 30469-8) Abnormal [facility] WITH [id number] 22:30:10* Test Item Value Reference Range Interpretation [...] 34.6 g/dL 31.6-35.1 RDW-SD (test code = 56870-7) 42.7 fL 39.0-49.9 RDW-CV (test code = 788-0) 14.6 % 12.0-15.5 PLT (test code = 777-3) 331 See_Comment [Automated messa ge] The system which generated this result transmitted reference range: 166 - 358 10*3/?L. The reference range was not used to interpret this result as normal/abnormal. MPV (test code = 36558-9) 9.7 fL 9.5-12.9 NRBC/100 WBC (test code = 1304688739) 0.0 See_Comment [Automated me ssage] The system which generated this result transmitted reference range: 0.0 - 10.0 /100 WBCs. The reference range was not used to interpret this result as normal/abnormal. NRBC x10^3 (test code = 6761281126) See_Comment [Automated messa ge] The system which generated this result transmitted reference range: 10*3/?L. The reference range was not used to interpret this result as normal/abnormal. GRAN MAT (NEUT) % (test code = 770-8) 65.7 % IMM GRAN % (test code = 8603854606) 0.50 % LYMPH % (test code = 736-9) 26.5 % MONO % (test code = 5905-5) 5.4 % EOS % (test code = 713-8) 1.5 % BASO % (test code = 706-2) 0.4 % GRAN MAT x10^3(ANC) (test code = 4726135615) 8.05 10*3/uL 1.88-7.09 H IMM GRAN x10^3 (test code = 6113046252) 0.06 10*3/uL 0.00-0.06 LYMPH x10^3 (test code = 731-0) 3.24 10*3/uL 1.32-3.29 MONO x10^3 (test code = 742-7) 0.66 10*3/uL 0.33-0.92 EOS x10^3 (test code = 711-2) 0.18 10*3/uL 0.03-0.39 BASO x10^3 (test code = 704-7) 0.05 10*3/uL 0.01-0.07 Lab Interpretation (test code = 05560-1) [facility] StationCOMP[facility] METABOLIC PANEL (66703)2023-02-15 22:27:47* Test Item Value Reference Range Interpretation Comme nts NA (test code = 9855771504) 138 mmol/L 135-145 K (test code = 8908092145) 3.7 mmol/L 3.5-5.0 CL (test code = 1584005339) 105 mmol/L 98-108 CO2 TOTAL (test code = 7554296829) 23 mmol/L 23-31 AGAP (test code = 0982169378) 10 2-16 BUN (test code = 4232492983) 6 mg/dL 7-23 L GLUCOSE (test code = 4948645611) 92 mg/dL 70-110 CREATININE (test code = 3655658548) 0.77 mg/dL 0.50-1.04 TOTAL BILI (test code = 4666404290) 0.7 mg/dL 0.1-1.1 CALCIUM (test code = 5942661348) 9.0 mg/dL 8.6-10.6 T PROTEIN (test code = 8306200460) 7.5 g/dL 6.3-8.2 ALBUMIN (test code = 4196227037) 4.0 g/dL 3.5-5.0 ALK PHOS (test code = 1000087051) 101 U/L 34-122 ALTv (test code = 1742-6) 25 U/L 5-35 AST(SGOT) (test code = 1314911266) 36 U/L 13-40 eGFR (test code = 9181800703) 81.8 mL/min/1.73m2 DARWIN (test code = DARWIN) [...] imaging tests). Lab Interpretation (test code = 29500-7) [facility] StationD-[id number] 20:56:28* Test Item Value Reference Range Interpretation Comments D-DIMER (test code = 7698313016) 0.44 See_Comment H [Automated message] The system [...] a diagnosis. Lab Interpretation (test code = 21520-9) [facility]normal [facility] StationTROPONIN [id number] 01:15:16* Test Item Value Reference Range Interpretation Comments TROPONIN I (test code = 9449539051) 0.001 ng/mL See_Comment [Automated message] The system [...] of biotin. Lab Interpretation (test code = 47179-0) Normal [facility] StationTROP[facility]IN [id number] 22:52:31* Test Item Value Reference Range Interpretation Comments TROPONIN I (test code = 1898867365) 0.001 ng/mL See_Comment [Automated message] The system [...] of biotin. Lab Interpretation (test code = 10726-8) Normal [facility] StationN-TERMINAL [id number] 22:49:33* Test Item Value Reference Range Interpretation Comme nts NT-proBNP (test code = 3589944742) 145 pg/mL See_Comment H [Automated message] The system which generated this result transmitted reference range: <=125. The reference range was not used to interpret this result as normal/abnormal. DARWIN (test code = DARWIN) Biotin has been reported to cause a negative bias, interpret results relative to patient's use of biotin. Lab Interpretation (test code = 61834-6) Abnormal [facility] METABOLIC PANEL (NA, K, CL, CO2, GLUCOSE, BUN, CREATININE, CA)2022-01-09 22:40:32* Test Item Value Reference Range Interpretation Comme nts NA (test code = 7014851209) 142 mmol/L 135-145 K (test code = 2331121674) 3.3 mmol/L 3.5-5.0 L CL (test code = 4305638533) 109 mmol/L 98-108 H CO2 TOTAL (test code = 6281774115) 22 mmol/L 23-31 L AGAP (test code = 7722540431) 2-16 BUN (test code = 6748862742) 9 mg/dL 7-23 GLUCOSE (test code = 2090349334) 116 mg/dL 70-110 H CREATININE (test code = 1692175980) 0.69 mg/dL 0.50-1.04 CALCIUM (test code = 5414707427) 9.2 mg/dL 8.6-10.6 eGFR (test code = 6810292672) mL/min/1.73m2 DARWIN (test code = DARWIN) Association [...] imaging tests). Lab Interpretation (test code = 48955-8) Abnormal [facility] WITH [id number] 22:29:09* Test Item Value Reference Range Interpretation Comme nts WBC (test code = 6690-2) See_Comment [Automated [employer]] The system which generated this result transmitted reference range: 4.30 - 11.10 10*3/?L. The reference range was not used to interpret this result as normal/abnormal. RBC (test code = 789-8) See_Comment [Automated [employer]] The system which generated this result transmitted [...] 34.4 g/dL 31.6-35.1 RDW-SD (test code = 76587-8) 40.7 fL 39.0-49.9 RDW-CV (test code = 788-0) 14.1 % 12.0-15.5 PLT (test code = 777-3) See_Comment [Automated [employer]] The system which generated this result transmitted reference range: 166 - 358 10*3/?L. The reference range was not used to interpret this result as normal/abnormal. MPV (test code = 49218-0) 9.6 fL 9.5-12.9 NRBC/100 WBC (test code = 0402759106) See_Comment [Automated me ssage] The system which generated this result transmitted reference range: 0.0 - 10.0 /100 WBCs. The reference range was not used to interpret this result as normal/abnormal. NRBC x10^3 (test code = 8149296140) <0.01 See_Comment [Automated messa ge] The system which generated this result transmitted reference range: 10*3/?L. The reference range was not used to interpret this result as normal/abnormal. GRAN MAT (NEUT) % (test code = 770-8) 54.7 % IMM GRAN % (test code = 8399222538) 0.40 % LYMPH % (test code = 736-9) 33.8 % MONO % (test code = 5905-5) 7.1 % EOS % (test code = 713-8) 3.3 % BASO % (test code = 706-2) 0.7 % GRAN MAT x10^3(ANC) (test code = 7529198977) 4.87 10*3/uL 1.88-7.09 IMM GRAN x10^3 (test code = 3419205859) 0.04 10*3/uL 0.00-0.06 LYMPH x10^3 (test code = 731-0) 3.01 10*3/uL 1.32-3.29 MONO x10^3 (test code = 742-7) 0.63 10*3/uL 0.33-0.92 EOS x10^3 (test code = 711-2) 0.29 10*3/uL 0.03-0.39 BASO x10^3 (test code = 704-7) 0.06 10*3/uL 0.01-0.07 Lab Interpretation (test code = 94267-8) Abnormal [facility] [id number] 06:45:45* Test Item Value Reference Range Interpretation Comments TROPONIN I (test code = 5105826720) 0.000 ng/mL See_Comment [Automated message] The system [...] of biotin. Lab Interpretation (test code = 64416-6) Normal [facility] StationTHYROID STIMULATING [id number] 05:00:55 * Test Item Value Reference Range Interpretation Comme nts TSH (test code = 6757215275) See_Comment [Automated [employer]] The system which generated this result transmitted reference range: 0.45 - 4.70 mIU/L. The reference range was not used to interpret this result as normal/abnormal. Lab Interpretation (test code = 73305-5) Normal [facility] [id number] 04:47:50* Test Item Value Reference Range Interpretation Comme nts FREE T4 (test code = 8134311473) See_Comment [Automated [employer]] The system which generated this result transmitted reference range: 0.78 - 2.20 ng/dL:. The reference range was not used to interpret this result as normal/abnormal. Lab Interpretation (test code = 65469-4) Normal [facility] [id number] 04:47:10* Test Item Value Reference Range Interpretation Comme nts FREE T3 (test code = 8748513368) 4.37 pg/mL 2.77-5.27 Lab Interpretation (test cod e = 28305-1) [facility] StationTR[facility]IN [id number] 04:42:07* Test Item Value Reference Range Interpretation Comments TROPONIN I (test code = 6537357211) 0.001 ng/mL See_Comment [Automated message] The system [...] of biotin. Lab Interpretation (test code = 07172-0) Normal [facility] StationCOMP. METABOLIC PANEL (50225)2021-12-14 04:30:28* Test Item Value Reference Range Interpretation Comme nts NA (test code = 9703418432) 141 mmol/L 135-145 K (test code = 6435956165) 3.6 mmol/L 3.5-5.0 CL (test code = 3512170153) 111 mmol/L 98-108 H CO2 TOTAL (test code = 3895428672) 19 mmol/L 23-31 L AGAP (test code = 8324639594) 2-16 BUN (test code = 3819903142) 15 mg/dL 7-23 GLUCOSE (test code = 8941277104) 113 mg/dL 70-110 H CREATININE (test code = 9564074097) 1.05 mg/dL 0.50-1.04 H TOTAL BILI (test code = 4735269620) 0.2 mg/dL 0.1-1.1 CALCIUM (test code = 8678116440) 9.8 mg/dL 8.6-10.6 T PROTEIN (test code = 3250923429) 6.8 g/dL 6.3-8.2 ALBUMIN (test code = 5609144513) 4.2 g/dL 3.5-5.0 ALK PHOS (test code = 5942630929) 73 U/L 34-122 ALTv (test code = 1742-6) 16 U/L 5-35 AST(SGOT) (test code = 3296353879) 19 U/L 13-40 eGFR (test code = 1779507232) mL/min/1.73m2 DARWIN (test code = DARWIN) Association [...] imaging tests). Lab Interpretation (test code = 83995-0) [facility]20[facility]-09 04:29:48* Test Item Value Reference Range Interpretation Comme nts LIPASE (test code = 9169044158) 225 U/L 0-220 H Lab Interpretation (test cod e = 08102-9) [facility]normal [facility] StationPOCT [id number] 04:20:00* Test Item Value Reference Range Interpretation Comme nts POCT PREG (test code = 1605) negative On board controls acceptable with C Line (test code = 3574) present POCT PREG LOT # (test code = 3575) [id number] POCT PREG TEST DATE ( test code = 3576) 2023-05-07 Lab Interpretation (test cod e = 56549-7) [facility] StationCB WITH [id number] 04:01:25* Test Item Value Reference Range Interpretation [...] 34.3 g/dL 31.6-35.1 RDW-SD (test code = 54918-6) 39.5 fL 39.0-49.9 RDW-CV (test code = 788-0) 13.6 % 12.0-15.5 PLT (test code = 777-3) See_Comment [Automated messa ge] The system which generated this result transmitted reference range: 166 - 358 10*3/?L. The reference range was not used to interpret this result as normal/abnormal. MPV (test code = 66008-9) 9.9 fL 9.5-12.9 NRBC/100 WBC (test code = 6553200561) See_Comment [Automated [employer] ssage] The system which generated this result transmitted reference range: 0.0 - 10.0 /100 WBCs. The reference range was not used to interpret this result as normal/abnormal. NRBC x10^3 (test code = 3425561830) <0.01 See_Comment [Automated messa ge] The system which generated this result transmitted reference range: 10*3/?L. The reference range was not used to interpret this result as normal/abnormal. GRAN MAT (NEUT) % (test code = 770-8) 51.5 % IMM GRAN % (test code = 9423446954) 0.50 % LYMPH % (test code = 736-9) 35.8 % MONO % (test code = 5905-5) 9.4 % EOS % (test code = 713-8) 2.2 % BASO % (test code = 706-2) 0.6 % GRAN MAT x10^3(ANC) (test code = 8289832156) 5.37 10*3/uL 1.88-7.09 IMM GRAN x10^3 (test code = 5049666355) 0.05 10*3/uL 0.00-0.06 LYMPH x10^3 (test code = 731-0) 3.73 10*3/uL 1.32-3.29 H MONO x10^3 (test code = 742-7) 0.98 10*3/uL 0.33-0.92 H EOS x10^3 (test code = 711-2) 0.23 10*3/uL 0.03-0.39 BASO x10^3 (test code = 704-7) 0.06 10*3/uL 0.01-0.07 Lab Interpretation (test code = 52264-6) [facility]normal [facility] StationTR[facility] [id number] 04:04:13* Test Item Value Reference Range Interpretation Comments TROPONIN I (test code = 2335409177) 0.001 ng/mL See_Comment [Automated message] The system [...] of biotin. Lab Interpretation (test code = 35524-1) Normal [facility] StationPOCT [id number] 02:56:00* Test Item Value Reference Range Interpretation Comme nts POCT PREG (test code = 1605) negative On board controls acceptable with C Line (test code = 3574) present POCT PREG LOT # (test code = 3575) [id number] POCT PREG TEST DATE ( test code = 3576) 2023-04-06 Lab Interpretation (test cod e = 85472-7) [facility] StationTR[facility]IN [id number] 02:15:30* Test Item Value Reference Range Interpretation Comments TROPONIN I (test code = 1849948569) 0.000 ng/mL See_Comment [Automated message] The system [...] of biotin. Lab Interpretation (test code = 06652-2) Normal [facility] StationN-TERMINAL [id number] 02:12:14* Test Item Value Reference Range Interpretation Comme nts NT-proBNP (test code = 6122785808) 109 pg/mL See_Comment [Automated message] The system which generated this result transmitted reference range: <=125. The reference range was not used to interpret this result as normal/abnormal. DARWIN (test code = DARWIN) Biotin has been reported to cause a negative bias, interpret results relative to patient's use of biotin. Lab Interpretation (test code = 92735-4) [facility] StationCOMP. METABOLIC PANEL (67520)2021-11-12 02:04:12* Test Item Value Reference Range Interpretation Comme nts NA (test code = 0248296457) 140 mmol/L 135-145 K (test code = 9895973253) 4.0 mmol/L 3.5-5.0 CL (test code = 0506804545) 111 mmol/L 98-108 H CO2 TOTAL (test code = 3856961321) 17 mmol/L 23-31 L AGAP (test code = 6342488638) 2-16 BUN (test code = 6421272793) 9 mg/dL 7-23 GLUCOSE (test code = 1798999080) 105 mg/dL 70-110 CREATININE (test code = 9362377928) 0.72 mg/dL 0.50-1.04 TOTAL BILI (test code = 0643556960) 0.4 mg/dL 0.1-1.1 CALCIUM (test code = 8111903774) 9.3 mg/dL 8.6-10.6 T PROTEIN (test code = 6610577393) 6.6 g/dL 6.3-8.2 ALBUMIN (test code = 4045486185) 4.0 g/dL 3.5-5.0 ALK PHOS (test code = 5633038897) 70 U/L 34-122 ALTv (test code = 1742-6) 19 U/L 5-35 AST(SGOT) (test code = 8584693944) 21 U/L 13-40 eGFR (test code = 6896147031) mL/min/1.73m2 DARWIN (test code = DARWIN) Association [...] imaging tests). Lab Interpretation (test code = 55581-4) [facility]normal [facility] StationLIPASE2022-05-08 02:03:32* Test Item Value Reference Range Interpretation Comme nts LIPASE (test code = 4008863848) 173 U/L 0-220 Lab Interpretation (test cod e = 56843-2) [facility] StationCB WITH [id number] 01:43:53* Test Item Value Reference Range Interpretation Comme nts WBC (test code = 6690-2) See_Comment [Automated [employer]] The system which generated this result transmitted reference range: 4.30 - 11.10 10*3/?L. The reference range was not used to interpret this result as normal/abnormal. RBC (test code = 789-8) See_Comment [Automated [employer]] The system which generated this result transmitted [...] 33.7 g/dL 31.6-35.1 RDW-SD (test code = 05394-9) 41.3 fL 39.0-49.9 RDW-CV (test code = 788-0) 14.3 % 12.0-15.5 PLT (test code = 777-3) See_Comment [Automated messa ge] The system which generated this result transmitted reference range: 166 - 358 10*3/?L. The reference range was not used to interpret this result as normal/abnormal. MPV (test code = 03119-0) 9.7 fL 9.5-12.9 NRBC/100 WBC (test code = 4898011253) See_Comment [Automated [employer] ssage] The system which generated this result transmitted reference range: 0.0 - 10.0 /100 WBCs. The reference range was not used to interpret this result as normal/abnormal. NRBC x10^3 (test code = 9790247926) <0.01 See_Comment [Automated messa ge] The system which generated this result transmitted reference range: 10*3/?L. The reference range was not used to interpret this result as normal/abnormal. GRAN MAT (NEUT) % (test code = 770-8) 62.6 % IMM GRAN % (test code = 2623488038) 0.50 % LYMPH % (test code = 736-9) 27.0 % MONO % (test code = 5905-5) 6.5 % EOS % (test code = 713-8) 2.9 % BASO % (test code = 706-2) 0.5 % GRAN MAT x10^3(ANC) (test code = 8802793079) 6.30 10*3/uL 1.88-7.09 IMM GRAN x10^3 (test code = 8187747396) 0.05 10*3/uL 0.00-0.06 LYMPH x10^3 (test code = 731-0) 2.71 10*3/uL 1.32-3.29 MONO x10^3 (test code = 742-7) 0.65 10*3/uL 0.33-0.92 EOS x10^3 (test code = 711-2) 0.29 10*3/uL 0.03-0.39 BASO x10^3 (test code = 704-7) 0.05 10*3/uL 0.01-0.07 Lab Interpretation (test code = 28992-0) Abnormal [facility] [id number] 02:21:00* Test Item Value Reference Range Interpretation Comme nts POCT PREG (test code = 1605) Negative On board controls acceptable with C Line (test code = 3574) Present Lab Interpretation (test cod e = 05137-7) [facility] StationComplete Metabolic [id number] 02:05:50* Test Item Value Reference Range Interpretation Comme nts NA (test code = 7789409207) 137 mmol/L 135-145 K (test code = 4179419937) 3.9 mmol/L 3.5-5.0 CL (test code = 9657951827) 109 mmol/L 98-108 H CO2 TOTAL (test code = 0389057657) 19 mmol/L 23-31 L AGAP (test code = 1520577843) 2-16 BUN (test code = 9898799559) 10 mg/dL 7-23 GLUCOSE (test code = 6530637549) 101 mg/dL 70-110 CREATININE (test code = 5088831313) 0.80 mg/dL 0.50-1.04 TOTAL BILI (test code = 7756927780) 0.3 mg/dL 0.1-1.1 CALCIUM (test code = 8121443701) 8.8 mg/dL 8.6-10.6 T PROTEIN (test code = 7245600428) 6.6 g/dL 6.3-8.2 ALBUMIN (test code = 6020095819) 4.0 g/dL 3.5-5.0 ALK PHOS (test code = 3442326906) 71 U/L 34-122 ALTv (test code = 1742-6) 18 U/L 5-35 AST(SGOT) (test code = 0960537873) 20 U/L 13-40 eGFR (test code = 2785270405) mL/min/1.73m2 DARWIN (test code = DARWIN) Association [...] imaging tests). Lab Interpretation (test code = 12716-7) [facility]normal [facility] StationLipase, [id number] 02:05:25* Test Item Value Reference Range Interpretation Comme nts LIPASE (test code = 8823885988) 96 U/L 0-220 Lab Interpretation (test cod e = 52901-1) [facility] StationCBC with [id number] 01:53:06* Test Item Value Reference Range Interpretation Comme nts WBC (test code = 6690-2) See_Comment H [Automated [employer]] The system which generated this result transmitted reference range: 4.30 - 11.10 10*3/?L. The reference range was not used to interpret this result as normal/abnormal. RBC (test code = 789-8) See_Comment H [Automated [employer]] The system which generated this result transmitted [...] 34.3 g/dL 31.6-35.1 RDW-SD (test code = 29897-2) 40.5 fL 39.0-49.9 RDW-CV (test code = 788-0) 14.4 % 12.0-15.5 PLT (test code = 777-3) See_Comment [Automated messa ge] The system which generated this result transmitted reference range: 166 - 358 10*3/?L. The reference range was not used to interpret this result as normal/abnormal. MPV (test code = 86824-2) 9.4 fL 9.5-12.9 L NRBC/100 WBC (test code = 0904254927) See_Comment [Automated [employer] ssage] The system which generated this result transmitted reference range: 0.0 - 10.0 /100 WBCs. The reference range was not used to interpret this result as normal/abnormal. NRBC x10^3 (test code = 4675581625) <0.01 See_Comment [Automated messa ge] The system which generated this result transmitted reference range: 10*3/?L. The reference range was not used to interpret this result as normal/abnormal. GRAN MAT (NEUT) % (test code = 770-8) 59.8 % IMM GRAN % (test code = 3119139630) 0.40 % LYMPH % (test code = 736-9) 31.0 % MONO % (test code = 5905-5) 6.3 % EOS % (test code = 713-8) 2.0 % BASO % (test code = 706-2) 0.5 % GRAN MAT x10^3(ANC) (test code = 4746525006) 6.73 10*3/uL 1.88-7.09 IMM GRAN x10^3 (test code = 3199046744) 0.05 10*3/uL 0.00-0.06 LYMPH x10^3 (test code = 731-0) 3.50 10*3/uL 1.32-3.29 H MONO x10^3 (test code = 742-7) 0.71 10*3/uL 0.33-0.92 EOS x10^3 (test code = 711-2) 0.23 10*3/uL 0.03-0.39 BASO x10^3 (test code = 704-7) 0.06 10*3/uL 0.01-0.07 Lab Interpretation (test code = 59928-7) Abnormal [facility] [id number] 01:45:00* Test Item Value Reference Range Interpretation Comme nts POCT PREG (test code = 1605) negatibe On board controls acceptable with C Line (test code = 3574) present POCT PREG LOT # (test code = 3575) [id number] POCT PREG TEST DATE ( test code = 3576) 09/04/2022 Lab Interpretation (test cod e = 24907-0) Normal [facility] [id number] 06:35:00* Test Item Value Reference Range Interpretation Comme nts POCT PREG (test code = 1605) negative On board controls acceptable with C Line (test code = 3574) present POCT PREG LOT # (test code = 3575) [id number] POCT PREG TEST DATE ( test code = 3576) Lab Interpretation (test cod e = 55705-2) [facility]TR[facility]ENTERNIN [id number] 09:09:55* Test Item Value Reference Range Interpretation Comments TROPONIN I (test code = 8430539772) 0.001 ng/mL See_Comment [Automated message] The system [...] of biotin. Lab Interpretation (test code = 05872-7) [facility] StationD-[id number] 07:23:51* Test Item Value Reference Range Interpretation Comments D-DIMER (test code = 2614140069) See_Comment [Automated message] The system which generated [...] a diagnosis. Lab Interpretation (test code = 50976-2) [facility] StationLIPASE2021-11-21 06:11:26* Test Item Value Reference Range Interpretation Comme nts LIPASE (test code = 3720348055) 155 U/L 0-220 Lab Interpretation (test cod e = 49032-4) [facility] StationTROP[facility]IN [id number] 06:06:05* Test Item Value Reference Range Interpretation Comments TROPONIN I (test code = 5832693279) 0.002 ng/mL See_Comment [Automated message] The system [...] of biotin. Lab Interpretation (test code = 22476-9) Normal [facility] StationN-TERMINAL [id number] 06:03:04* Test Item Value Reference Range Interpretation Comme nts NT-proBNP (test code = 4829889350) 19 pg/mL See_Comment [Automated message] The system which generated this result transmitted reference range: <=125. The reference range was not used to interpret this result as normal/abnormal. DARWIN (test code = DARWIN) Biotin has been reported to cause a negative bias, interpret results relative to patient's use of biotin. Lab Interpretation (test code = 45116-1) [facility] StationCOMP. METABOLIC PANEL (26786)2021-05-28 05:54:25* Test Item Value Reference Range Interpretation Comme nts NA (test code = 4462227506) 136 mmol/L 135-145 K (test code = 5260763486) 3.2 mmol/L 3.5-5.0 L CL (test code = 3593369291) 109 mmol/L 98-108 H CO2 TOTAL (test code = 4454023021) 16 mmol/L 23-31 L AGAP (test code = 5186327690) 2-16 BUN (test code = 9781252950) 11 mg/dL 7-23 GLUCOSE (test code = 6387536514) 144 mg/dL 70-110 H CREATININE (test code = 9877330838) 0.84 mg/dL 0.50-1.04 TOTAL BILI (test code = 2155184827) 0.2 mg/dL 0.1-1.1 CALCIUM (test code = 3514818323) 9.4 mg/dL 8.6-10.6 T PROTEIN (test code = 8952406258) 6.9 g/dL 6.3-8.2 ALBUMIN (test code = 4359946302) 3.9 g/dL 3.5-5.0 ALK PHOS (test code = 2170755531) 106 U/L 34-122 ALTv (test code = 1742-6) 20 U/L 5-35 AST(SGOT) (test code = 8288684824) 17 U/L 13-40 eGFR (test code = 2044290515) mL/min/1.73m2 DARWIN (test code = DARWIN) Association [...] imaging tests). Lab Interpretation (test code = 69042-1) Abnormal [facility] WITH [id number] 05:40:06* Test Item Value Reference Range Interpretation Comme nts WBC (test code = 6690-2) See_Comment [Automated [employer]] The system which generated this result transmitted reference range: 4.30 - 11.10 10*3/?L. The reference range was not used to interpret this result as normal/abnormal. RBC (test code = 789-8) See_Comment [Automated [employer]] The system which generated this result transmitted [...] 33.3 g/dL 31.6-35.1 RDW-SD (test code = 01752-4) 39.7 fL 39.0-49.9 RDW-CV (test code = 788-0) 13.6 % 12.0-15.5 PLT (test code = 777-3) See_Comment [Automated [employer]] The system which generated this result transmitted reference range: 166 - 358 10*3/?L. The reference range was not used to interpret this result as normal/abnormal. MPV (test code = 27059-4) 9.5 fL 9.5-12.9 NRBC/100 WBC (test code = 2130652779) See_Comment [Automated [employer] ssage] The system which generated this result transmitted reference range: 0.0 - 10.0 /100 WBCs. The reference range was not used to interpret this result as normal/abnormal. NRBC x10^3 (test code = 8481288170) <0.01 See_Comment [Automated [employer]] The system which generated this result transmitted reference range: 10*3/?L. The reference range was not used to interpret this result as normal/abnormal. GRAN MAT (NEUT) % (test code = 770-8) 53.7 % IMM GRAN % (test code = 2814453613) 0.50 % LYMPH % (test code = 736-9) 36.0 % MONO % (test code = 5905-5) 6.3 % EOS % (test code = 713-8) 2.8 % BASO % (test code = 706-2) 0.7 % GRAN MAT x10^3(ANC) (test code = 6940638656) 5.38 10*3/uL 1.88-7.09 IMM GRAN x10^3 (test code = 4332028895) 0.05 10*3/uL 0.00-0.06 LYMPH x10^3 (test code = 731-0) 3.60 10*3/uL 1.32-3.29 H MONO x10^3 (test code = 742-7) 0.63 10*3/uL 0.33-0.92 EOS x10^3 (test code = 711-2) 0.28 10*3/uL 0.03-0.39 BASO x10^3 (test code = 704-7) 0.07 10*3/uL 0.01-0.07 Lab Interpretation (test code = 58847-2) [facility]normal [facility] StationPOCT [id number] 05:32:00* Test Item Value Reference Range Interpretation Comme nts POCT PREG (test code = 1605) negative On board controls acceptable with C Line (test code = 3574) present POCT PREG LOT # (test code = 3575) [id number] POCT PREG TEST DATE ( test code = 3576) 08/07/2022 Lab Interpretation (test cod e = 26702-2) [id number] 11:13:57* Test Item Value Reference Range Interpretation Comments TROPONIN I (test code = 7574604376) 0.002 ng/mL See_Comment [Automated message] The system [...] of biotin. Lab Interpretation (test code = 89917-9) Normal [facility] Metabolic Panel (NA, K, CL, CO2, GLUCOSE, BUN, CREATININE, CA)2021-04-08 11:04:34* Test Item Value Reference Range Interpretation Comme nts NA (test code = 2182740314) 140 mmol/L 135-145 K (test code = 1150805322) 3.6 mmol/L 3.5-5.0 CL (test code = 4737846838) 111 mmol/L 98-108 H CO2 TOTAL (test code = 3548711806) 22 mmol/L 23-31 L AGAP (test code = 5832797355) 2-16 BUN (test code = 7716648416) 10 mg/dL 7-23 GLUCOSE (test code = 0512491647) 104 mg/dL 70-110 CREATININE (test code = 3325166757) 0.70 mg/dL 0.50-1.04 CALCIUM (test code = 2607177904) 8.7 mg/dL 8.6-10.6 eGFR (test code = 4939406645) mL/min/1.73m2 DARWIN (test code = DARWIN) Association [...] imaging tests). Lab Interpretation (test code = 26169-4) Abnormal [facility] with Htykjzcunimv6188-82-47 10:46:50* Test Item Value Reference Range Interpretation Comme nts WBC (test code = 6690-2) See_Comment [Automated [employer]] The system which generated this result transmitted reference range: 4.30 - 11.10 10*3/?L. The reference range was not used to interpret this result as normal/abnormal. RBC (test code = 789-8) See_Comment [Automated [employer]] The system which generated this result [...] 33.5 g/dL 31.6-35.1 RDW-SD (test code = 72896-3) 42.0 fL 39.0-49.9 RDW-CV (test code = 788-0) 14.1 % 12.0-15.5 PLT (test code = 777-3) See_Comment [Automated [employer]] The system which generated this result transmitted reference range: 166 - 358 10*3/?L. The reference range was not used to interpret this result as normal/abnormal. MPV (test code = 02256-2) 10.0 fL 9.5-12.9 NRBC/100 WBC (test code = 7401054988) See_Comment [Automated [employer] ssage] The system which generated this result transmitted reference range: 0.0 - 10.0 /100 WBCs. The reference range was not used to interpret this result as normal/abnormal. NRBC x10^3 (test code = 0295051231) <0.01 See_Comment [Automated me ssage] The system which generated this result transmitted reference range: 10*3/?L. The reference range was not used to interpret this result as normal/abnormal. GRAN MAT (NEUT) % (test code = 770-8) 59.1 % IMM GRAN % (test code = 6373507708) 0.70 % LYMPH % (test code = 736-9) 28.2 % MONO % (test code = 5905-5) 8.5 % EOS % (test code = 713-8) 3.0 % BASO % (test code = 706-2) 0.5 % GRAN MAT x10^3(ANC) (test code = 4203898668) 3.61 10*3/uL 1.88-7.09 IMM GRAN x10^3 (test code = 9912670716) 0.04 10*3/uL 0.00-0.06 LYMPH x10^3 (test code = 731-0) 1.72 10*3/uL 1.32-3.29 MONO x10^3 (test code = 742-7) 0.52 10*3/uL 0.33-0.92 EOS x10^3 (test code = 711-2) 0.18 10*3/uL 0.03-0.39 BASO x10^3 (test code = 704-7) 0.03 10*3/uL 0.01-0.07 [facility] [id number] 05:54:48* Test Item Value Reference Range Interpretation Comments TROPONIN I (test code = 5683406289) 0.002 ng/mL See_Comment [Automated message] The system [...] of biotin. Lab Interpretation (test code = 39823-6) Normal [facility] StationThyroid Stimulating Hormone (TSH)2021-04-08 00:51:16* Test Item Value Reference Range Interpretation Comme nts TSH (test code = 8019665645) See_Comment [Automated [employer]] The system which generated this result transmitted reference range: 0.45 - 4.70 mIU/L. The reference range was not used to interpret this result as normal/abnormal. Lab Interpretation (test code = 45986-7) Normal [facility] StationGlycosylated Hemoglobin (A1C)2021-04-08 00:26:53* Test Item Value Reference Range Interpretation Comme nts HGB A1C (test code = 4548-4) 5.5 % 4.0-5.7 DARWIN (test code = DARWIN) Reference RangesNormal: <5.7%Prediabetes: 5.7 - 6.4%Diabetes: > 6.5% Lab Interpretation (test code = 47176-8) Normal [facility] StationLipid Panel (Total Cholesterol, Triglycerides, HDL)2021-04-08 00:20:12* Test Item Value Reference Range Interpretation Comme nts CHOL (test code = 6490921630) 223 mg/dL 120-200 H HDL (test code = 6451609989) 35 mg/dL >50 L HDLC RATIO (test code = 8844093146) See_Comment H [Automated messa ge] The system which generated this result transmitted reference range: <=4.5. The reference range was not used to interpret this result as normal/abnormal. TRIG (test code = 9601892660) 223 mg/dL 30-170 H LDL CHOL (test code = 21810-2) 143 mg/dL See_Comment [Automated messa ge] The system which generated this result transmitted reference range: <=160. The reference range was not used to interpret this result as normal/abnormal. VLDL (test code = 5979503248) 45 mg/dL 5-60 Lab Interpretation (test code = 91717-7) Abnormal [facility] StationMagnesium [id number] 00:20:07* Test Item Value Reference Range Interpretation Comme nts MAGNESIUM (test code = 9352203373) 1.7 mg/dL 1.7-2.4 Lab Interpretation (test cod e = 32006-2) Normal [facility] StationCOMP. METABOLIC PANEL (61859)2021-04-07 23:04:13* Test Item Value Reference Range Interpretation Comme nts NA (test code = 2288921674) 139 mmol/L 135-145 K (test code = 6745228300) 3.4 mmol/L 3.5-5.0 L CL (test code = 8716202949) 109 mmol/L 98-108 H CO2 TOTAL (test code = 6617360033) 22 mmol/L 23-31 L AGAP (test code = 8477801354) 2-16 BUN (test code = 4407163915) 10 mg/dL 7-23 GLUCOSE (test code = 2433582604) 97 mg/dL 70-110 CREATININE (test code = 6337534083) 0.84 mg/dL 0.50-1.04 TOTAL BILI (test code = 4725085361) 0.3 mg/dL 0.1-1.1 CALCIUM (test code = 7517832991) 9.2 mg/dL 8.6-10.6 T PROTEIN (test code = 3017412259) 6.6 g/dL 6.3-8.2 ALBUMIN (test code = 5154793070) 3.8 g/dL 3.5-5.0 ALK PHOS (test code = 5914089517) 69 U/L 34-122 ALTv (test code = 1742-6) 18 U/L 5-35 AST(SGOT) (test code = 7077546420) 19 U/L 13-40 eGFR (test code = 1692179650) mL/min/1.73m2 DARWIN (test code = DARWIN) Association [...] imaging tests). Lab Interpretation (test code = 15902-4) [facility]normal [facility] StationTROPONIN [id number] 22:33:04* Test Item Value Reference Range Interpretation Comments TROPONIN I (test code = 5248627732) 0.001 ng/mL See_Comment [Automated message] The system [...] of biotin. Lab Interpretation (test code = 25476-9) Normal [facility] StationN-TERMINAL [id number] 22:30:05* Test Item Value Reference Range Interpretation Comme nts NT-proBNP (test code = 1044257381) 352 pg/mL See_Comment H [Automated message] The system which generated this result transmitted reference range: <=125. The reference range was not used to interpret this result as normal/abnormal. DARWIN (test code = DARWIN) Biotin has been reported to cause a negative bias, interpret results relative to patient's use of biotin. Lab Interpretation (test code = 71895-2) Abnormal [facility] StationACTIVATED PARTIAL THRMPLAS [id number] 22:28:48* Test Item Value Reference Range Interpretation Comme [facility] APTT Patient (test code = 3173-2) See_Comment [Automated message] The system which generated this result transmitted reference range: 23 - 38 Seconds. The reference range was not used to interpret this result as normal/abnormal. DAWRIN (test code = DARWIN) The [facility] patient population mean normal value for aPTT is 30 seconds. Lab Interpretation (test code = 60800-4) Normal [facility] StationPROTHROMBIN TIME / [id number] 22:26:44* Test Item Value Reference Range Interpretation Comme [facility] PROTIME PATIENT (test code = 5964-2) See_Comment [Automated [employer]] The system which generated this result transmitted reference range: 12.0 - 14.7 Seconds. The reference range was not used to interpret this result as normal/abnormal. INR (test code = 6301-6) Normal INR <1.1; Warfarin Therapeutic range 2.0 to 3.0 or 2.5 to 3.5, depending upon the indications. Lab Interpretation (test code = 62070-4) Normal [facility] StationLIPASE2021-10-01 22:20:05* Test Item Value Reference Range Interpretation Comme [facility] LIPASE (test code = 6958884942) 66 U/L 0-220 Lab Interpretation (test cod e = 23979-9) Normal [facility] StationCBC WITH [id number] 22:07:01* Test Item Value Reference Range Interpretation Comme nts WBC (test code = 6690-2) See_Comment [Automated [employer]] The system which generated this result transmitted reference range: 4.30 - 11.10 10*3/?L. The reference range was not used to interpret this result as normal/abnormal. RBC (test code = 789-8) See_Comment [Automated [employer]] The system which generated this result [...] 33.2 g/dL 31.6-35.1 RDW-SD (test code = 68402-5) 41.6 fL 39.0-49.9 RDW-CV (test code = 788-0) 14.1 % 12.0-15.5 PLT (test code = 777-3) See_Comment [Automated [employer]] The system which generated this result transmitted reference range: 166 - 358 10*3/?L. The reference range was not used to interpret this result as normal/abnormal. MPV (test code = 15291-0) 9.2 fL 9.5-12.9 L NRBC/100 WBC (test code = 2496223036) See_Comment [Automated [employer]] The system which generated this result transmitted reference range: 0.0 - 10.0 /100 WBCs. The reference range was not used to interpret this result as normal/abnormal. NRBC x10^3 (test code = 5853567454) <0.01 See_Comment [Automated [employer]] The system which generated this result transmitted reference range: 10*3/?L. The reference range was not used to interpret this result as normal/abnormal. GRAN MAT (NEUT) % (test code = 770-8) 61.6 % IMM GRAN % (test code = 6475305580) 0.60 % LYMPH % (test code = 736-9) 28.7 % MONO % (test code = 5905-5) 4.9 % EOS % (test code = 713-8) 3.7 % BASO % (test code = 706-2) 0.5 % GRAN MAT x10^3(ANC) (test code = 6300467067) 6.24 10*3/uL 1.88-7.09 IMM GRAN x10^3 (test code = 5018794449) 0.06 10*3/uL 0.00-0.06 LYMPH x10^3 (test code = 731-0) 2.90 10*3/uL 1.32-3.29 MONO x10^3 (test code = 742-7) 0.50 10*3/uL 0.33-0.92 EOS x10^3 (test code = 711-2) 0.37 10*3/uL 0.03-0.39 BASO x10^3 (test code = 704-7) 0.05 10*3/uL 0.01-0.07 Lab Interpretation (test code = 29031-6) [facility]normal [facility] StationURINALYSIS2021-07-08 08:49:55* Test Item Value Reference Range Interpretation Comme nts APPEARANCE (test code = 7010443048) Cloudy Clear A COLOR (test code = 8444283075) Yellow Yellow PH (test code = 2705285770) 4.8-8.0 SP GRAVITY (test code = 8452039770) 1.003-1.030 GLU U QUAL (test code = 7268789381) Normal Normal BLOOD (test code = 5653407220) Negative Negative KETONES (test code = 5856560221) Negative Negative PROTEIN (test code = 2887-8) Negative Negative UROBILIN (test code = 0700952510) Normal Normal BILIRUBIN (test code = 9362924778) 2 mg/dL Negative A NITRITE (test code = 1957491079) Negative Negative LEUK MARC (test code = 9120354578) 75/uL Negative A RBC/HPF (test code = 6188398360) See_Comment H [Automated [employer]] The system which generated this result transmitted reference range: 0 - 3 HPF. The reference range was not used to interpret this result as normal/abnormal. WBC/HPF (test code = 2817660113) See_Comment H [Automated [employer]] The system which generated this result transmitted reference range: 0 - 5 HPF. The reference range was not used to interpret this result as normal/abnormal. BACTERIA (test code = 0013500954) Moderate Negative A MUCOUS (test code = 8760129492) Slight Negative LPF A SQ EPITH (test code = 5295007280) HPF YEAST BUD (test code = 4676690056) See_Comment H [Automated [employer]] The system which generated this result transmitted reference range: <=1 HPF. The reference range was not used to interpret this result as normal/abnormal. Ictotest (test code = 3206634485) Negative Lab Interpretation (test code = 33027-1) Abnormal [facility]. METABOLIC PANEL (68135)2021-01-12 08:49:44* Test Item Value Reference Range Interpretation Comme nts NA (test code = 6031627999) 137 mmol/L 135-145 K (test code = 6113287299) 4.6 mmol/L 3.5-5.0 CL (test code = 8597402670) 108 mmol/L 98-108 CO2 TOTAL (test code = 0204153477) 21 mmol/L 23-31 L AGAP (test code = 8615681404) 2-16 BUN (test code = 8243803451) 19 mg/dL 7-23 GLUCOSE (test code = 4205058790) 107 mg/dL 70-110 CREATININE (test code = 4717854427) 0.63 mg/dL 0.50-1.04 TOTAL BILI (test code = 1192123988) 0.4 mg/dL 0.1-1.1 CALCIUM (test code = 8203305737) 9.2 mg/dL 8.6-10.6 T PROTEIN (test code = 1410070487) 7.4 g/dL 6.3-8.2 ALBUMIN (test code = 1603109581) 4.2 g/dL 3.5-5.0 ALK PHOS (test code = 6798555755) 179 U/L 34-122 H ALTv (test code = 1742-6) 113 U/L 5-35 H AST(SGOT) (test code = 8098922770) 38 U/L 13-40 eGFR (test code = 5929632094) mL/min/1.73m2 DARWIN (test code = DARWIN) Association [...] imaging tests). Lab Interpretation (test code = 60653-9) Abnormal [facility] WITH [id number] 08:11:02* Test Item Value Reference Range Interpretation Comme nts WBC (test code = 6690-2) See_Comment H [Automated [employer]] The system which generated this result transmitted reference range: 4.30 - 11.10 10*3/?L. The reference range was not used to interpret this result as normal/abnormal. RBC (test code = 789-8) See_Comment [Automated [employer]] The system which generated this result transmitted [...] 33.3 g/dL 31.6-35.1 RDW-SD (test code = 37886-9) 41.6 fL 39.0-49.9 RDW-CV (test code = 788-0) 14.0 % 12.0-15.5 PLT (test code = 777-3) See_Comment [Automated [employer]] The system which generated this result transmitted reference range: 166 - 358 10*3/?L. The reference range was not used to interpret this result as normal/abnormal. MPV (test code = 93891-6) 9.5 fL 9.5-12.9 NRBC/100 WBC (test code = 4445348499) See_Comment [Automated [employer]] The system which generated this result transmitted reference range: 0.0 - 10.0 /100 WBCs. The reference range was not used to interpret this result as normal/abnormal. NRBC x10^3 (test code = 4783174040) <0.01 See_Comment [Automated [employer]] The system which generated this result transmitted reference range: 10*3/?L. The reference range was not used to interpret this result as normal/abnormal. GRAN MAT (NEUT) % (test code = 770-8) 68.0 % IMM GRAN % (test code = 5787922923) 0.80 % LYMPH % (test code = 736-9) 23.6 % MONO % (test code = 5905-5) 5.1 % EOS % (test code = 713-8) 2.1 % BASO % (test code = 706-2) 0.4 % GRAN MAT x10^3(ANC) (test code = 6604788668) 8.86 10*3/uL 1.88-7.09 H IMM GRAN x10^3 (test code = 9892409504) 0.11 10*3/uL 0.00-0.06 H LYMPH x10^3 (test code = 731-0) 3.07 10*3/uL 1.32-3.29 MONO x10^3 (test code = 742-7) 0.66 10*3/uL 0.33-0.92 EOS x10^3 (test code = 711-2) 0.27 10*3/uL 0.03-0.39 BASO x10^3 (test code = 704-7) 0.05 10*3/uL 0.01-0.07 Lab Interpretation (test code = 66183-8) [facility] StationPOCT [id number] 08:02:00* Test Item Value Reference Range Interpretation Comme nts POCT PREG (test code = 1605) negative On board controls acceptable with C Line (test code = 3574) positive POCT PREG LOT # (test code = 3575) [id number] POCT PREG TEST DATE ( test code = 3576) 07/07/2022 Lab Interpretation (test cod e = 55081-6) [facility] [id number] 01:55:05* Test Item Value Reference Range Interpretation Comme nts TROPONIN I (test code = 0621084766) 0.000 ng/mL See_Comment [Automated message] The system [...] biotin. ? Lab Interpretation (test code = 22130-0) Normal [facility] 1 [id number] 23:41:46No radiographic evidence of an acute cardiopulmonary process. RL: 2109AFC: 88794 EXAM: XR CHEST 1 VW ORDERING PROVIDER: [...] evidence of an acute cardiopulmonary process.RL: 2109AFC: 84603 [facility] T[facility] [id number] 23:07:21* Test Item Value Reference Range Interpretation Comme nts TROPONIN I (test code = 6962379425) 0.000 ng/mL See_Comment [Automated message] The system [...] biotin. ? Lab Interpretation (test code = 62468-0) Normal [facility] StationN-TERMINAL YCP-[id number] 23:04:20* Test Item Value Reference Range Interpretation Comme nts NT-proBNP (test code = 2170924294) 14 pg/mL See_Comment [Automated message] The system which generated this result transmitted reference range: <=125. The reference range was not used to interpret this result as normal/abnormal. DARWIN (test code = DARWIN) Biotin has been reported to cause a negative bias, interpret results relative to patient's use of biotin. Lab Interpretation (test code = 59401-3) [facility] StationHepatic Function Panel (ALB, T.PRO, BILI T, BU/BC, ALT, AST, ALK PHOS)2020-12-10 22:58:16* Test Item Value Reference Range Interpretation Comme nts TOTAL BILI (test code = 7190317926) 0.5 mg/dL 0.1-1.1 BILI UNCON (test code = 4270308471) 0.3 mg/dL 0.1-1.1 BILI CONJ (test code = 8422514250) 0.0 mg/dL 0.0-0.3 T PROTEIN (test code = 7373526988) 8.1 g/dL 6.3-8.2 ALBUMIN (test code = 3124198437) 4.7 g/dL 3.5-5.0 ALK PHOS (test code = 7561314817) 104 U/L 34-122 ALTv (test code = 1742-6) 18 U/L 5-35 AST(SGOT) (test code = 9655688244) 23 U/L 13-40 Lab Interpretation (test cod e = 41817-6) [facility] StationBasi Metabolic Panel (NA, K, CL, CO2, GLUCOSE, BUN, CREATININE, CA)2020-12-10 22:57:56* Test Item Value Reference Range Interpretation Comme nts NA (test code = 8962840056) 135 mmol/L 135-145 K (test code = 0285815002) 3.7 mmol/L 3.5-5.0 CL (test code = 2072552415) 105 mmol/L 98-108 CO2 TOTAL (test code = 0331213954) 18 mmol/L 23-31 L AGAP (test code = 2297374524) 2-16 BUN (test code = 8189026509) 14 mg/dL 7-23 GLUCOSE (test code = 2049688191) 108 mg/dL 70-110 CREATININE (test code = 2776246894) 0.56 mg/dL 0.50-1.04 CALCIUM (test code = 3498194466) 9.8 mg/dL 8.6-10.6 eGFR (test code = 9105038404) mL/min/1.73m2 DARWIN (test code = DARWIN) Association [...] imaging tests). Lab Interpretation (test code = 39236-8) [facility]normal [facility] StationLipase Ggsnx8843-19-85 22:57:56* Test Item Value Reference Range Interpretation Comme nts LIPASE (test code = 4336838593) 122 U/L 0-220 Lab Interpretation (test cod e = 55631-6) Normal [facility] StationD-NVCKN1840-47-37 22:52:34* Test Item Value Reference Range Interpretation Comments D-DIMER (test code = 6651153201) See_Comment [Automated message] The system which generated [...] a diagnosis. Lab Interpretation (test code = 84289-9) Normal [facility] [facility] StationUrinalysis2021-06-05 22:52:29* Test Item Value Reference Range Interpretation Comme nts APPEARANCE (test code = 9587553021) Hazy Clear A COLOR (test code = 8281692263) Yellow Yellow PH (test code = 2717503824) 4.8-8.0 SP GRAVITY (test code = 2716989695) 1.003-1.030 GLU U QUAL (test code = 2464675309) Normal Normal BLOOD (test code = 2598797841) Negative Negative KETONES (test code = 4881724233) Negative Negative PROTEIN (test code = 2887-8) Negative Negative UROBILIN (test code = 5977618206) Normal Normal BILIRUBIN (test code = 8073628931) 2 mg/dL Negative A NITRITE (test code = 7884649639) Negative Negative LEUK MARC (test code = 6071559393) 25/uL Negative A RBC/HPF (test code = 6171836462) See_Comment [Automated messa ge] The system which generated this result transmitted reference range: 0 - 3 HPF. The reference range was not used to interpret this result as normal/abnormal. WBC/HPF (test code = 5087688148) See_Comment [Automated messa ge] The system which generated this result transmitted reference range: 0 - 5 HPF. The reference range was not used to interpret this result as normal/abnormal. BACTERIA (test code = 7826263943) Few Negative A MUCOUS (test code = 5449475761) Slight Negative LPF A SQ EPITH (test code = 7654166188) HPF Lab Interpretation (test code = 22930-6) Abnormal [facility] with Vnvttebcfgkn3930-46-94 22:45:56* Test Item Value Reference Range Interpretation [...] 33.5 g/dL 31.6-35.1 RDW-SD (test code = 39126-8) 40.5 fL 39.0-49.9 RDW-CV (test code = 788-0) 13.3 % 12.0-15.5 PLT (test code = 777-3) See_Comment H [Automated message] The system which generated this result transmitted reference range: 166 - 358 10*3/?L. The reference range was not used to interpret this result as normal/abnormal. MPV (test code = 66822-6) 9.2 fL 9.5-12.9 L NRBC/100 WBC (test code = 1414031276) See_Comment [Automated message] The system which generated this result transmitted reference range: 0.0 - 10.0 /100 WBCs. The reference range was not used to interpret this result as normal/abnormal. NRBC x10^3 (test code = 0129260641) <0.01 See_Comment [Automated message] The system which generated this result transmitted reference range: 10*3/?L. The reference range was not used to interpret this result as normal/abnormal. GRAN MAT (NEUT) % (test code = 770-8) 73.4 % IMM GRAN % (test code = 5396144812) 0.50 % LYMPH % (test code = 736-9) 17.5 % MONO % (test code = 5905-5) 6.5 % EOS % (test code = 713-8) 1.6 % BASO % (test code = 706-2) 0.5 % GRAN MAT x10^3(ANC) (test code = 5419691637) 10.21 10*3/uL 1.88-7.09 H IMM GRAN x10^3 (test code = 7209774815) 0.07 10*3/uL 0.00-0.06 H LYMPH x10^3 (test code = 731-0) 2.44 10*3/uL 1.32-3.29 MONO x10^3 (test code = 742-7) 0.90 10*3/uL 0.33-0.92 EOS x10^3 (test code = 711-2) 0.22 10*3/uL 0.03-0.39 BASO x10^3 (test code = 704-7) 0.07 10*3/uL 0.01-0.07 Lab Interpretation (test code = 84560-5) Abnormal [facility] Exkd6182-77-75 22:32:00* Test Item Value Reference Range Interpretation Comme nts POCT PREG (test code = 1605) negative On board controls acceptable with C Line (test code = 3574) present POCT PREG LOT # (test code = 3575) [id number] POCT PREG TEST DATE ( test code = 3576) 06/06/2022 Lab Interpretation (test cod e = 10886-6) [facility] StationUrinalysis2021-05-30 21:34:43* Test Item Value Reference Range Interpretation Comme nts APPEARANCE (test code = 6857161759) Clear Clear COLOR (test code = 7955118499) Yellow Yellow PH (test code = 1026931788) 4.8-8.0 SP GRAVITY (test code = 2513901953) 1.003-1.030 GLU U QUAL (test code = 4576938042) Normal Normal BLOOD (test code = 0472789761) Negative Negative KETONES (test code = 4125412017) Negative Negative PROTEIN (test code = 2887-8) Negative Negative UROBILIN (test code = 6413214001) Normal Normal BILIRUBIN (test code = 3128329043) Negative Negative NITRITE (test code = 9543760446) Negative Negative LEUK MARC (test code = 9016159927) Negative Negative RBC/HPF (test code = 6960991967) See_Comment [Automated LiveStoriesa ge] The system which generated this result transmitted reference range: 0 - 3 HPF. The reference range was not used to interpret this result as normal/abnormal. WBC/HPF (test code = 1656694121) <1 See_Comment [Automated Live[employer]oriesa ge] The system which generated this result transmitted reference range: 0 - 5 HPF. The reference range was not used to interpret this result as normal/abnormal. BACTERIA (test code = 6680303169) Negative Negative MUCOUS (test code = 7397908190) Slight Negative LPF A SQ EPITH (test code = 4040641135) HPF Lab Interpretation (test code = 43497-8) [facility] StationPOCT Qxyc9448-98-63 21:18:00* Test Item Value Reference Range Interpretation Comme nts POCT PREG (test code = 1605) negative On board controls acceptable with C Line (test code = 3574) present POCT PREG LOT # (test code = 3575) [id number] POCT PREG TEST DATE ( test code = 3576) 06/06/2022 Lab Interpretation (test cod e = 22813-7) Normal [facility] StationXR ANKLE 3+ VW [id number] 21:11:00No acute bony abnormality. Preliminary Report Dictated [...] abovereport.[facility] StationTroponin [id number] 20:59:44* Test Item Value Reference Range Interpretation Comme nts TROPONIN I (test code = 2374759540) 0.000 ng/mL See_Comment [Automated message] The system [...] biotin. ? Lab Interpretation (test code = 42279-4) Normal [facility] StationLipase Dabfl8930-08-38 20:48:20* Test Item Value Reference Range Interpretation Comme nts LIPASE (test code = 5100408292) 96 U/L 0-220 Lab Interpretation (test cod e = 25684-4) Normal [facility] StationBasic Metabolic Panel (NA, K, CL, CO2, GLUCOSE, BUN, CREATININE, CA)2020-12-04 20:48:20* Test Item Value Reference Range Interpretation Comme nts NA (test code = 6611959555) 138 mmol/L 135-145 K (test code = 4561244997) 3.8 mmol/L 3.5-5.0 CL (test code = 6708705929) 108 mmol/L 98-108 CO2 TOTAL (test code = 7694266439) 21 mmol/L 23-31 L AGAP (test code = 8314078450) 2-16 BUN (test code = 7606213102) 13 mg/dL 7-23 GLUCOSE (test code = 3477212219) 107 mg/dL 70-110 CREATININE (test code = 1762564475) 0.66 mg/dL 0.50-1.04 CALCIUM (test code = 0552147033) 9.3 mg/dL 8.6-10.6 eGFR (test code = 0926523098) mL/min/1.73m2 DARWIN (test code = DARWIN) Association [...] imaging tests). Lab Interpretation (test code = 69118-6) [facility]normal [facility] StationHepatic Function Panel (ALB, T.PRO, BILI T, BU/BC, ALT, AST, ALK PHOS)2020-12-04 20:48:20* Test Item Value Reference Range Interpretation Comme nts TOTAL BILI (test code = 4600486847) 0.3 mg/dL 0.1-1.1 BILI UNCON (test code = 5888587462) 0.1 mg/dL 0.1-1.1 BILI CONJ (test code = 4224896521) 0.0 mg/dL 0.0-0.3 T PROTEIN (test code = 2172215449) 7.0 g/dL 6.3-8.2 ALBUMIN (test code = 9944240675) 4.0 g/dL 3.5-5.0 ALK PHOS (test code = 9816972053) 114 U/L 34-122 ALTv (test code = 1742-6) 30 U/L 5-35 AST(SGOT) (test code = 1882153301) 23 U/L 13-40 Lab Interpretation (test cod e = 83037-5) Normal [facility] with Bzdmrqoedjyl4378-02-18 20:35:01* Test Item Value Reference Range Interpretation [...] 34.0 g/dL 31.6-35.1 RDW-SD (test code = 72577-5) 39.8 fL 39.0-49.9 RDW-CV (test code = 788-0) 12.9 % 12.0-15.5 PLT (test code = 777-3) See_Comment [Automated messa ge] The system which generated this result transmitted reference range: 166 - 358 10*3/?L. The reference range was not used to interpret this result as normal/abnormal. MPV (test code = 12845-8) 9.3 fL 9.5-12.9 L NRBC/100 WBC (test code = 5398376742) See_Comment [Automated [employer] ssage] The system which generated this result transmitted reference range: 0.0 - 10.0 /100 WBCs. The reference range was not used to interpret this result as normal/abnormal. NRBC x10^3 (test code = 3970913849) <0.01 See_Comment [Automated messa ge] The system which generated this result transmitted reference range: 10*3/?L. The reference range was not used to interpret this result as normal/abnormal. GRAN MAT (NEUT) % (test code = 770-8) 71.5 % IMM GRAN % (test code = 2194486022) 0.30 % LYMPH % (test code = 736-9) 19.8 % MONO % (test code = 5905-5) 6.2 % EOS % (test code = 713-8) 1.8 % BASO % (test code = 706-2) 0.4 % GRAN MAT x10^3(ANC) (test code = 6106212849) 6.79 10*3/uL 1.88-7.09 IMM GRAN x10^3 (test code = 4460091661) 0.03 10*3/uL 0.00-0.06 LYMPH x10^3 (test code = 731-0) 1.88 10*3/uL 1.32-3.29 MONO x10^3 (test code = 742-7) 0.59 10*3/uL 0.33-0.92 EOS x10^3 (test code = 711-2) 0.17 10*3/uL 0.03-0.39 BASO x10^3 (test code = 704-7) 0.04 10*3/uL 0.01-0.07 Lab Interpretation (test code = 49941-4) [facility]normal [facility] StationDRUG SCREEN ER (URINE)2020-11-04 02:54:38* Test Item Value Reference Range Interpretation Comme nts AMPHET (test code = 2173954679) Negative Negative Cocaine Metabolite (test code = 5258393639) Negative Negative OPIATES (test code = 8777563022) Presumptive Positive Negative A THC (test code = 1893077659) Negative Negative DARWIN (test code = DARWIN) Urine Drug Cutoff Ranges Amphetamine: ? 1,000 ng/mLCocaine: ? 150 ng/mLOpiates: ? 300 ng/mLCannabinoids: ?50 ng/mL The results are to be used only for medical (i.e., treatment) purposes. Unconfirmed screening results must not be used for non-medical purposes (e.g., employment testing, legal testing). Lab Interpretation (test code = 48791-0) [facility]normal [facility] StationTROPONIN [id number] 02:51:11* Test Item Value Reference Range Interpretation Comme nts TROPONIN I (test code = 9220399882) 0.001 ng/mL See_Comment [Automated message] The system [...] biotin. ? Lab Interpretation (test code = 72397-4) Normal [facility] StationaPTT2021-04-30 02:41:10* Test Item Value Reference Range Interpretation Comme nts APTT Patient (test code = 3173-2) See_Comment [Automated message] The system which generated this result transmitted reference range: 23 - 38 Seconds. The reference range was not used to interpret this result as normal/abnormal. DARWIN (test code = DARWIN) The [facility] patient population mean normal value for aPTT is 30 seconds. Lab Interpretation (test code = 26113-0) Normal [facility] StationURINALYSIS2021-04-30 02:40:40* Test Item Value Reference Range Interpretation Comme nts APPEARANCE (test code = 8071859225) Clear Clear COLOR (test code = 9498500650) Yellow Yellow PH (test code = 8919410502) 4.8-8.0 SP GRAVITY (test code = 1599840392) 1.003-1.030 GLU U QUAL (test code = 3592740086) Normal Normal BLOOD (test code = 8073021686) Negative Negative KETONES (test code = 3287453096) Negative Negative PROTEIN (test code = 2887-8) Negative Negative UROBILIN (test code = 0760094779) Normal Normal BILIRUBIN (test code = 6983165111) Negative Negative NITRITE (test code = 6204890856) Negative Negative LEUK MARC (test code = 2834514203) Negative Negative RBC/HPF (test code = 7067926836) <1 See_Comment [Automated messa ge] The system which generated this result transmitted reference range: 0 - 3 HPF. The reference range was not used to interpret this result as normal/abnormal. WBC/HPF (test code = 5426546714) <1 See_Comment [Automated messa ge] The system which generated this result transmitted reference range: 0 - 5 HPF. The reference range was not used to interpret this result as normal/abnormal. BACTERIA (test code = 5241295456) Negative Negative MUCOUS (test code = 9055382557) Slight Negative LPF A SQ EPITH (test code = 8622148579) HPF Lab Interpretation (test code = 78949-2) Abnormal [facility]. METABOLIC PANEL (29907)2020-11-04 02:40:09* Test Item Value Reference Range Interpretation Comme nts NA (test code = 2564228302) 141 mmol/L 135-145 K (test code = 4151135278) 4.1 mmol/L 3.5-5.0 CL (test code = 0887212288) 110 mmol/L 98-108 H CO2 TOTAL (test code = 1339966015) 22 mmol/L 23-31 L AGAP (test code = 7187306504) 2-16 BUN (test code = 0825164144) 15 mg/dL 7-23 GLUCOSE (test code = 1107801957) 115 mg/dL 70-110 H CREATININE (test code = 7655443367) 0.69 mg/dL 0.50-1.04 TOTAL BILI (test code = 7962628868) 0.2 mg/dL 0.1-1.1 CALCIUM (test code = 7625739543) 9.2 mg/dL 8.6-10.6 T PROTEIN (test code = 1060059984) 6.8 g/dL 6.3-8.2 ALBUMIN (test code = 7042161597) 4.1 g/dL 3.5-5.0 ALK PHOS (test code = 9105433789) 69 U/L 34-122 ALTv (test code = 1742-6) 20 U/L 5-35 AST(SGOT) (test code = 6618122966) 23 U/L 13-40 eGFR (test code = 1834339627) mL/min/1.73m2 DARWIN (test code = DARWIN) Association [...] imaging tests). Lab Interpretation (test code = 43895-8) [facility] BranchLIPASE, [id number] 02:39:49* Test Item Value Reference Range Interpretation Comme nts LIPASE (test code = 3436904346) 117 U/L 0-220 Lab Interpretation (test cod e = 10096-4) Normal [facility] StationPROTHROMBIN TIME / [id number] 02:39:08* Test Item Value Reference Range Interpretation [...] the indications. Lab Interpretation (test code = 18907-3) Normal [facility] StationCBC WITH [id number] 02:30:11* Test Item Value Reference Range Interpretation [...] 32.8 g/dL 31.6-35.1 RDW-SD (test code = 20219-2) 44.1 fL 39.0-49.9 RDW-CV (test code = 788-0) 13.8 % 12.0-15.5 PLT (test code = 777-3) See_Comment [Automated messa ge] The system which generated this result transmitted reference range: 166 - 358 10*3/?L. The reference range was not used to interpret this result as normal/abnormal. MPV (test code = 37333-3) 9.6 fL 9.5-12.9 NRBC/100 WBC (test code = 2781452896) See_Comment [Automated me ssage] The system which generated this result transmitted reference range: 0.0 - 10.0 /100 WBCs. The reference range was not used to interpret this result as normal/abnormal. NRBC x10^3 (test code = 6346914995) <0.01 See_Comment [Automated messa ge] The system which generated this result transmitted reference range: 10*3/?L. The reference range was not used to interpret this result as normal/abnormal. GRAN MAT (NEUT) % (test code = 770-8) 65.9 % IMM GRAN % (test code = 9874041185) 0.70 % LYMPH % (test code = 736-9) 25.9 % MONO % (test code = 5905-5) 5.1 % EOS % (test code = 713-8) 2.0 % BASO % (test code = 706-2) 0.4 % GRAN MAT x10^3(ANC) (test code = 8605577805) 8.82 10*3/uL 1.88-7.09 H IMM GRAN x10^3 (test code = 4849832379) 0.09 10*3/uL 0.00-0.06 H LYMPH x10^3 (test code = 731-0) 3.46 10*3/uL 1.32-3.29 H MONO x10^3 (test code = 742-7) 0.68 10*3/uL 0.33-0.92 EOS x10^3 (test code = 711-2) 0.27 10*3/uL 0.03-0.39 BASO x10^3 (test code = 704-7) 0.05 10*3/uL 0.01-0.07 Lab Interpretation (test code = 68075-8) [facility]normal [facility] StationCOVID-19 (ID NOW RAPID TESTING)2020-09-17 16:56:05* Test Item Value Reference Range Interpretation Comme nts SARS-CoV-2 Rapid ID NOW (test code = 00220-7) Not Detected Not Detected DARWIN (test code = DARWIN) ID NOW COVID-19 As say is an isothermal nucleic acid amplification test intended for the qualitative detection of nucleic acid from SARS-CoV-2 viral RNA in nasopharyngeal (PSYCHOLOGIST EXPERIMENTAL) specimens. It is used under Emergency Use [...] clinically indicated. Lab Interpretation (test code = 13185-5) Normal [facility] StationRAPID STREP SCREEN FOR GROUP [id number] 16:54:09* Test Item Value Reference Range Interpretation Comme nts Streptococcus pyogenes (grou p A) antigen (test code = 34832-8) Negative Negative Lab Interpretation (test cod e = 34679-3) Normal [facility] StationXR HAND 3+ VW [id number] 07:29:48 Impression: No acute fracture or dislocation. RL: 2824AFC: 61773 End of Report Exam: Left Hand, 09/07/2020 [...] swelling.IMPRESSIONImpression: No acute fracture or dislocation.RL: 2824AFC: 55430Xci of Report [facility] StationXR FOREARM 2 VW [id number] 07:28:55No acute abnormality of the left forearm. RL: 6200AFC: 69403 Patient name: CHARITY MONROYOB: 1980 40 years [...] acute abnormality of the left forearm.RL: 6200AFC: 81819 [facility] StationUrinalysis2021-02-21 09:06:00* Test Item Value Reference Range Interpretation Comme nts APPEARANCE (test code = 9775001561) Hazy Clear A COLOR (test code = 1135508492) Yellow Yellow PH (test code = 3314976598) 4.8-8.0 SP GRAVITY (test code = 3660771318) 1.003-1.030 GLU U QUAL (test code = 5165311196) Normal Normal BLOOD (test code = 7402880400) Negative Negative KETONES (test code = 2695621028) Negative Negative PROTEIN (test code = 2887-8) Negative Negative UROBILIN (test code = 4649040165) Normal Normal BILIRUBIN (test code = 5529104962) Negative Negative NITRITE (test code = 6963121719) Negative Negative LEUK MARC (test code = 5069540256) Negative Negative RBC/HPF (test code = 7009163883) See_Comment [Automated messa ge] The system which generated this result transmitted reference range: 0 - 3 HPF. The reference range was not used to interpret this result as normal/abnormal. WBC/HPF (test code = 0617551580) <1 See_Comment [Automated messa ge] The system which generated this result transmitted reference range: 0 - 5 HPF. The reference range was not used to interpret this result as normal/abnormal. BACTERIA (test code = 3101719991) Moderate Negative A SQ EPITH (test code = 7222182302) HPF Lab Interpretation (test code = 15489-5) Abnormal [facility] with Sgmnksdhutbj2831-21-23 08:50:00* Test Item Value Reference Range Interpretation [...] 34.0 g/dL 31.6-35.1 RDW-SD (test code = 57718-9) 42.6 fL 39-49.9 RDW-CV (test code = 788-0) 13.6 % 12-15.5 PLT (test code = 777-3) See_Comment H [Automated messa ge] The system which generated this result transmitted reference range: 166 - 358 10*3/?L. The reference range was not used to interpret this result as normal/abnormal. MPV (test code = 60976-7) 9.7 fL 9.5-12.9 NRBC/100 WBC (test code = 6994542148) See_Comment [Automated me ssage] The system which generated this result transmitted reference range: 0.0 - 10.0 /100 WBCs. The reference range was not used to interpret this result as normal/abnormal. NRBC x10^3 (test code = 1760415042) <0.01 See_Comment [Automated messa ge] The system which generated this result transmitted reference range: 10*3/?L. The reference range was not used to interpret this result as normal/abnormal. GRAN MAT (NEUT) % (test code = 770-8) 49.7 % IMM GRAN % (test code = 1406077377) 0.50 % LYMPH % (test code = 736-9) 41.0 % MONO % (test code = 5905-5) 6.5 % EOS % (test code = 713-8) 1.9 % BASO % (test code = 706-2) 0.4 % GRAN MAT x10^3(ANC) (test code = 2105451015) 6.39 10*3/uL 1.88-7.09 IMM GRAN x10^3 (test code = 9267538731) 0.07 10*3/uL 0-0.06 H LYMPH x10^3 (test code = 731-0) 5.27 10*3/uL 1.32-3.29 H MONO x10^3 (test code = 742-7) 0.84 10*3/uL 0.33-0.92 EOS x10^3 (test code = 711-2) 0.24 10*3/uL 0.03-0.39 BASO x10^3 (test code = 704-7) 0.05 10*3/uL 0.01-0.07 Lab Interpretation (test code = 33735-7) Abnormal [facility] Gpcy6959-59-30 08:45:00* Test Item Value Reference Range Interpretation Comme nts POCT PREG (test code = 1605) neg On board controls acceptable with C Line (test code = 3574) yes POCT PREG LOT # (test code = 3575) [id number] POCT PREG TEST DATE ( test code = 3576) 04/06/2022 Lab Interpretation (test cod e = 05351-8) [facility] StationComplete Metabolic Vqkck4475-35-52 08:30:00* Test Item Value Reference Range Interpretation Comme nts NA (test code = 2079764715) 137 mmol/L 135-145 K (test code = 3060787310) 3.3 mmol/L 3.5-5 L CL (test code = 3439779730) 102 mmol/L 98-108 CO2 TOTAL (test code = 8624918669) 24 mmol/L 23-31 AGAP (test code = 6607203965) 2-16 BUN (test code = 7625912959) 9 mg/dL 7-23 GLUCOSE (test code = 7802075301) 116 mg/dL 70-110 H CREATININE (test code = 0483006309) 0.48 mg/dL 0.5-1.04 L TOTAL BILI (test code = 6754874144) 0.3 mg/dL 0.1-1.1 CALCIUM (test code = 7100497697) 9.4 mg/dL 8.6-10.6 T PROTEIN (test code = 4357901790) 7.0 g/dL 6.3-8.2 ALBUMIN (test code = 5272495734) 4.3 g/dL 3.5-5 ALK PHOS (test code = 1638060985) 127 U/L 34-122 H ALTv (test code = 1742-6) 87 U/L 5-35 H AST(SGOT) (test code = 1591033478) 34 U/L 13-40 eGFR Calculation (Non-) (test code = 7976115578) mL/min/1.73m2 eGFR Calculation () (test code = 8114340996) mL/min/1.73m2 DARWIN (test code = DARWIN) Association [...] imaging tests). Lab Interpretation (test code = 41520-6) Abnormal [facility] StationLipase, Gxpzn4019-40-73 08:30:00* Test Item Value Reference Range Interpretation Comme nts LIPASE (test code = 0510340933) 297 U/L 0-220 H Lab Interpretation (test cod e = 13544-4) Abnormal [facility] StationURINALYSIS2021-02-07 19:25:00* Test Item Value Reference Range Interpretation Comme nts APPEARANCE (test code = 0847681020) Clear Clear COLOR (test code = 6276578803) Straw Yellow A PH (test code = 8538424064) 4.8-8.0 SP GRAVITY (test code = 8168126499) 1.003-1.030 GLU U QUAL (test code = 7401160830) Normal Normal BLOOD (test code = 0475716333) 1+ Negative A KETONES (test code = 7653622111) Negative Negative PROTEIN (test code = 2887-8) Negative Negative UROBILIN (test code = 2677020965) Normal Normal BILIRUBIN (test code = 3610897098) Negative Negative NITRITE (test code = 5283882122) Negative Negative LEUK MARC (test code = 0802676344) Negative Negative RBC/HPF (test code = 7578145279) See_Comment [Automated messa ge] The system which generated this result transmitted reference range: 0 - 3 HPF. The reference range was not used to interpret this result as normal/abnormal. WBC/HPF (test code = 2887995304) <1 See_Comment [Automated messa ge] The system which generated this result transmitted reference range: 0 - 5 HPF. The reference range was not used to interpret this result as normal/abnormal. BACTERIA (test code = 0816808868) Few Negative A MUCOUS (test code = 4557743980) Slight Negative LPF A SQ EPITH (test code = 2384734084) HPF Lab Interpretation (test code = 19928-7) [facility]normal [facility] StationTROPONIN [id number] 19:09:00* Test Item Value Reference Range Interpretation Comme nts TROPONIN I (test code = 8567655786) <0.012 See_Comment [Automated message] The system which [...] biotin. ? Lab Interpretation (test code = 81558-6) Normal [facility] StationAD / [facility] WCQOVM7598-89-99 19:09:00* Test Item Value Reference Range Interpretation Comme nts BENZO U (test code = 6581417609) Presumptive Positive Negative A ROSA U (test code = 3825763761) Negative Negative AMPHET (test code = 9815881231) Negative Negative THC (test code = 1567502466) Negative Negative METHADONE (test code = 3405275967) Negative Negative Meth U (test code = 2930750777) Negative Negative OPIATES (test code = 8610837416) Negative Negative Cocaine Metabolite (test code = 9188763746) Negative Negative PROPOXY (test code = 3738611767) Negative Negative Tric U (test code = 6443891253) Negative Negative PCP (test code = 3845062628) Negative Negative OXYCOD (test code = 5583197507) Negative Negative DARWIN (test code = DARWIN) [...] legal testing). Lab Interpretation (test code = 28012-5) Abnormal [facility] StationCOMP. METABOLIC PANEL (76440)2020-08-14 19:01:00* Test Item Value Reference Range Interpretation Comme nts NA (test code = 1549193449) 138 mmol/L 135-145 K (test code = 5689074791) 4.5 mmol/L 3.5-5 CL (test code = 9356577591) 106 mmol/L 98-108 CO2 TOTAL (test code = 2351182951) 21 mmol/L 23-31 L AGAP (test code = 0657793874) 2-16 BUN (test code = 6304816381) 13 mg/dL 7-23 GLUCOSE (test code = 0695532379) 97 mg/dL 70-110 CREATININE (test code = 2507666860) 0.48 mg/dL 0.5-1.04 L TOTAL BILI (test code = 2352779421) 0.4 mg/dL 0.1-1.1 CALCIUM (test code = 4224024470) 9.1 mg/dL 8.6-10.6 T PROTEIN (test code = 4743381877) 7.5 g/dL 6.3-8.2 ALBUMIN (test code = 6495308926) 4.3 g/dL 3.5-5 ALK PHOS (test code = 9359786803) 62 U/L 34-122 ALTv (test code = 1742-6) 19 U/L 5-35 AST(SGOT) (test code = 2276444499) 26 U/L 13-40 eGFR Calculation (Non-) (test code = 0515026662) mL/min/1.73m2 eGFR Calculation () (test code = 8683597167) mL/min/1.73m2 DARWIN (test code = DARWIN) Association [...] imaging tests). Lab Interpretation (test code = 32563-2) [facility] StationLIPASE2021-[facility]-07 19:01:00* Test Item Value Reference Range Interpretation Comme nts LIPASE (test code = 6729713245) 76 U/L 0-220 Lab Interpretation (test cod e = 27616-2) Normal [facility] StationCBC WITH [id number] 18:47:00* Test Item Value Reference Range Interpretation Comme nts WBC (test code = 6690-2) See_Comment H [Automated Live[employer]oriesa ge] The system which generated this result [...] 34.3 g/dL 31.6-35.1 RDW-SD (test code = 68438-0) 42.0 fL 39-49.9 RDW-CV (test code = 788-0) 13.4 % 12-15.5 PLT (test code = 777-3) See_Comment [Automated [employer]ories[employer] ge] The system which generated this result transmitted reference range: 166 - 358 10*3/?L. The reference range was not used to interpret this result as normal/abnormal. MPV (test code = 22401-0) 9.9 fL 9.5-12.9 NRBC/100 WBC (test code = 2439664749) See_Comment [Automated me ssage] The system which generated this result transmitted reference range: 0.0 - 10.0 /100 WBCs. The reference range was not used to interpret this result as normal/abnormal. NRBC x10^3 (test code = 3330971939) <0.01 See_Comment [Automated messa ge] The system which generated this result transmitted reference range: 10*3/?L. The reference range was not used to interpret this result as normal/abnormal. GRAN MAT (NEUT) % (test code = 770-8) 60.1 % IMM GRAN % (test code = 4958732035) 0.40 % LYMPH % (test code = 736-9) 31.3 % MONO % (test code = 5905-5) 6.0 % EOS % (test code = 713-8) 1.9 % BASO % (test code = 706-2) 0.3 % GRAN MAT x10^3(ANC) (test code = 6123905456) 6.96 10*3/uL 1.88-7.09 IMM GRAN x10^3 (test code = 1143880201) 0.05 10*3/uL 0-0.06 LYMPH x10^3 (test code = 731-0) 3.62 10*3/uL 1.32-3.29 H MONO x10^3 (test code = 742-7) 0.69 10*3/uL 0.33-0.92 EOS x10^3 (test code = 711-2) 0.22 10*3/uL 0.03-0.39 BASO x10^3 (test code = 704-7) 0.04 10*3/uL 0.01-0.07 Lab Interpretation (test code = 20973-1) [facility] StationXR CHEST 1 [id number] 18:17:08No acute cardiopulmonary abnormality. Preliminary Report Dictated [...] report.[facility] StationLactic Acid Whole [id number] 18:11:00* Test Item Value Reference Range Interpretation Comme nts LACTIC ACID (test code = 8289209038) 1.95 mmol/L 0.5-2.2 Lab Interpretation (test cod e = 55143-9) Normal [facility] StationCT ABDOMEN PELVIS WO [id number] 05:45:24No acute abdominopelvic abnormality. No urolithiasis. 2.5 [...] abovereport.[facility] StationPONY [id number] 03:10:00* Test Item Value Reference Range Interpretation Comme nts POCT PREG (test code = 1605) Negative On board controls acceptable with C Line (test code = 3574) Present POCT PREG LOT # (test code = 3575) [id number] POCT PREG TEST DATE ( test code = 3576) 03/07/2022 Lab Interpretation (test cod e = 46669-9) Normal [facility] with Ebutmzyvnxuu8096-40-90 03:05:00* Test Item Value Reference Range Interpretation [...] 34.7 g/dL 31.6-35.1 RDW-SD (test code = 03436-5) 42.0 fL 39-49.9 RDW-CV (test code = 788-0) 13.5 % 12-15.5 PLT (test code = 777-3) See_Comment [Automated message] The system which generated this result transmitted reference range: 166 - 358 10*3/?L. The reference range was not used to interpret this result as normal/abnormal. MPV (test code = 43552-8) 9.8 fL 9.5-12.9 NRBC/100 WBC (test code = 7514022574) See_Comment [Automated message] The system which generated this result transmitted reference range: 0.0 - 10.0 /100 WBCs. The reference range was not used to interpret this result as normal/abnormal. NRBC x10^3 (test code = 0109035882) <0.01 See_Comment [Automated message] The system which generated this result transmitted reference range: 10*3/?L. The reference range was not used to interpret this result as normal/abnormal. GRAN MAT (NEUT) % (test code = 770-8) 66.2 % IMM GRAN % (test code = 1798735503) 0.60 % LYMPH % (test code = 736-9) 25.4 % MONO % (test code = 5905-5) 5.6 % EOS % (test code = 713-8) 1.9 % BASO % (test code = 706-2) 0.3 % GRAN MAT x10^3(ANC) (test code = 8808974785) 10.64 10*3/uL 1.88-7.09 H IMM GRAN x10^3 (test code = 4586549600) 0.09 10*3/uL 0-0.06 H LYMPH x10^3 (test code = 731-0) 4.09 10*3/uL 1.32-3.29 H MONO x10^3 (test code = 742-7) 0.90 10*3/uL 0.33-0.92 EOS x10^3 (test code = 711-2) 0.31 10*3/uL 0.03-0.39 BASO x10^3 (test code = 704-7) 0.05 10*3/uL 0.01-0.07 Lab Interpretation (test code = 65340-6) [facility]normal [facility] StationUrinalysis2021-02-04 02:56:00* Test Item Value Reference Range Interpretation Comme nts APPEARANCE (test code = 7454547037) Hazy Clear A COLOR (test code = 6933834776) Yellow Yellow PH (test code = 7521352543) 4.8-8.0 SP GRAVITY (test code = 2827467157) 1.003-1.030 GLU U QUAL (test code = 4922566495) Normal Normal BLOOD (test code = 9954711066) Negative Negative KETONES (test code = 9934666609) Negative Negative PROTEIN (test code = 2887-8) Negative Negative UROBILIN (test code = 9737486408) Normal Normal BILIRUBIN (test code = 4434219670) Negative Negative NITRITE (test code = 8118081503) Negative Negative LEUK MARC (test code = 7034856156) Negative Negative RBC/HPF (test code = 1585937568) See_Comment [Automated Live[employer]oriesa ge] The system which generated this result transmitted reference range: 0 - 3 HPF. The reference range was not used to interpret this result as normal/abnormal. WBC/HPF (test code = 0762227077) See_Comment [Automated Live[employer]ories[employer] ge] The system which generated this result transmitted reference range: 0 - 5 HPF. The reference range was not used to interpret this result as normal/abnormal. BACTERIA (test code = 1620267472) Few Negative A MUCOUS (test code = 4527098686) Slight Negative LPF A SQ EPITH (test code = 7351987524) HPF YEAST BUD (test code = 7808865033) See_Comment H [Automated messa ge] The system which generated this result transmitted reference range: <=1 HPF. The reference range was not used to interpret this result as normal/abnormal. Lab Interpretation (test code = 28949-5) [facility] [id number] 02:24:00* Test Item Value Reference Range Interpretation Comme nts TROPONIN I (test code = 5209954518) <0.012 See_Comment [Automated message] The system which [...] biotin. ? Lab Interpretation (test code = 44189-5) Normal [facility] StationCOVID-19 (ID NOW RAPID TESTING)2020-08-11 02:15:00* Test Item Value Reference Range Interpretation Comme nts SARS-CoV-2 Rapid ID NOW (test code = 19045-5) Not Detected Not Detected DARWIN (test code = DARWIN) ID NOW COVID-19 As say is an isothermal nucleic acid amplification test intended for the qualitative detection of nucleic acid from SARS-CoV-2 viral RNA in nasopharyngeal (PSYCHOLOGIST EXPERIMENTAL) specimens. It is used under Emergency Use [...] clinically indicated. Lab Interpretation (test code = 89657-0) Normal [facility] StationBasaint [place] Metabolic Panel (NA, K, CL, CO2, GLUCOSE, BUN, CREATININE, CA)2020-08-11 02:13:00* Test Item Value Reference Range Interpretation Comme nts NA (test code = 1720429914) 137 mmol/L 135-145 K (test code = 2849794469) 4.0 mmol/L 3.5-5 CL (test code = 8259032187) 107 mmol/L 98-108 CO2 TOTAL (test code = 1176795697) 19 mmol/L 23-31 L AGAP (test code = 0425007786) 2-16 BUN (test code = 6109398492) 10 mg/dL 7-23 GLUCOSE (test code = 6296706103) 106 mg/dL 70-110 CREATININE (test code = 1160211441) 0.47 mg/dL 0.5-1.04 L CALCIUM (test code = 6835812420) 9.2 mg/dL 8.6-10.6 eGFR Calculation (Non-) (test code = 2133843021) mL/min/1.73m2 eGFR Calculation () (test code = 6483415567) mL/min/1.73m2 DARWIN (test code = DARWIN) Association [...] imaging tests). Lab Interpretation (test code = 98611-4) [facility]normal [facility] StationHepatic Function Panel (ALB, T.PRO, BILI T, BU/BC, ALT, AST, ALK PHOS)2020-08-11 02:13:00* Test Item Value Reference Range Interpretation Comme nts TOTAL BILI (test code = 3380261960) 0.4 mg/dL 0.1-1.1 BILI UNCON (test code = 6141793991) 0.3 mg/dL 0.1-1.1 BILI CONJ (test code = 6612733361) 0.0 mg/dL 0-0.3 T PROTEIN (test code = 7036365242) 7.5 g/dL 6.3-8.2 ALBUMIN (test code = 7045483307) 4.4 g/dL 3.5-5 ALK PHOS (test code = 9207474266) 48 U/L 34-122 ALTv (test code = 1742-6) 12 U/L 5-35 AST(SGOT) (test code = 9754438300) 22 U/L 13-40 Lab Interpretation (test cod e = 17263-4) Normal [facility] StationLipase [id number] 02:13:00* Test Item Value Reference Range Interpretation Comme nts LIPASE (test code = 9441237519) 78 U/L 0-220 Lab Interpretation (test cod e = 58099-6) Normal [facility] StationLactic Acid Whole Tbycn6785-41-03 02:05:00* Test Item Value Reference Range Interpretation Comme nts LACTIC ACID (test code = 4973050631) 1.47 mmol/L 0.5-2.2 Lab Interpretation (test cod e = 58880-5) Normal [facility] StationXR FOREARM 2 VW [id number] 14:31:40No acute bony abnormality. Soft tissue swelling. [...] abovereport.[facility] StationCOVID-19 (ID NOW RAPID TESTING)2020-08-07 14:18:00* Test Item Value Reference Range Interpretation Comme nts SARS-CoV-2 Rapid ID NOW (test code = 17349-8) Not Detected Not Detected DARWIN (test code = DARWIN) ID NOW COVID-19 As say is an isothermal nucleic acid amplification test intended for the qualitative detection of nucleic acid from SARS-CoV-2 viral RNA in nasopharyngeal (PSYCHOLOGIST EXPERIMENTAL) specimens. It is used under Emergency Use [...] clinically indicated. Lab Interpretation (test code = 47611-7) [id number] 02:54[facility]* Test Item Value Reference Range Interpretation Comme nts TROPONIN I (test code = 0701796964) <0.012 See_Comment [Automated message] The system which [...] biotin. ? Lab Interpretation (test code = 70840-9) Normal [facility] StationLIPASE2020-12-25 02:37:00* Test Item Value Reference Range Interpretation Comme nts LIPASE (test code = 7287260089) 76 U/L 0-220 Lab Interpretation (test cod e = 40965-0) Normal [facility] StationURINALYSIS2020-12-25 01:54:00* Test Item Value Reference Range Interpretation Comme nts APPEARANCE (test code = 5658043083) Clear Clear COLOR (test code = 6193622565) Straw Yellow A PH (test code = 0024365234) 4.8-8.0 SP GRAVITY (test code = 2816109213) 1.003-1.030 GLU U QUAL (test code = 5282210533) Normal Normal BLOOD (test code = 5831010950) 3+ Negative A KETONES (test code = 7545241694) Negative Negative PROTEIN (test code = 2887-8) Negative Negative UROBILIN (test code = 5764799442) Normal Normal BILIRUBIN (test code = 1202168922) Negative Negative NITRITE (test code = 5377406352) Negative Negative LEUK [facility] (test code = 6311039813) Negative Negative RBC/HPF (test code = 1723459408) See_Comment [Automated messa ge] The system which generated this result transmitted reference range: 0 - 3 HPF. The reference range was not used to interpret this result as normal/abnormal. WBC/HPF (test code = 0713769079) <1 See_Comment [Automated messa ge] The system which generated this result transmitted reference range: 0 - 5 HPF. The reference range was not used to interpret this result as normal/abnormal. BACTERIA (test code = 5329266983) Few Negative A MUCOUS (test code = 9360124232) Slight Negative LPF A SQ EPITH (test code = 9534153955) HPF Lab Interpretation (test code = 07521-4) Abnormal [facility] WITH [id number] 00:57:00* Test Item Value Reference Range Interpretation [...] 34.0 g/dL 31.6-35.1 RDW-SD (test code = 92121-3) 41.7 fL 39-49.9 RDW-CV (test code = 788-0) 13.2 % 12-15.5 PLT (test code = 777-3) See_Comment [Automated messa ge] The system which generated this result transmitted reference range: 166 - 358 10*3/?L. The reference range was not used to interpret this result as normal/abnormal. MPV (test code = 90028-6) 9.4 fL 9.5-12.9 L NRBC/100 WBC (test code = 7575010967) See_Comment [Automated [employer] ssage] The system which generated this result transmitted reference range: 0.0 - 10.0 /100 WBCs. The reference range was not used to interpret this result as normal/abnormal. NRBC x10^3 (test code = 8865373622) <0.01 See_Comment [Automated messa ge] The system which generated this result transmitted reference range: 10*3/?L. The reference range was not used to interpret this result as normal/abnormal. GRAN MAT (NEUT) % (test code = 770-8) 51.8 % IMM GRAN % (test code = 4397398061) 0.50 % LYMPH % (test code = 736-9) 40.7 % MONO % (test code = 5905-5) 4.0 % EOS % (test code = 713-8) 2.5 % BASO % (test code = 706-2) 0.5 % GRAN MAT x10^3(ANC) (test code = 6012240111) 5.38 10*3/uL 1.88-7.09 IMM GRAN x10^3 (test code = 3868145193) 0.05 10*3/uL 0-0.06 LYMPH x10^3 (test code = 731-0) 4.22 10*3/uL 1.32-3.29 H MONO x10^3 (test code = 742-7) 0.42 10*3/uL 0.33-0.92 EOS x10^3 (test code = 711-2) 0.26 10*3/uL 0.03-0.39 BASO x10^3 (test code = 704-7) 0.05 10*3/uL 0.01-0.07 Lab Interpretation (test code = 25391-7) Abnormal [facility] StationADC,CLC OR [facility] ONLY - INFLUENZA A & B DIRECT [id number] 00:51:00* Test Item Value Reference Range Interpretation Comme nts Influenza A (test code = 92872-5) Negative Negative Influenza B (test code = 20175-4) Negative Negative Lab Interpretation (test cod e = 58957-0) Normal [facility] StationPOCT [id number] 00:51:00* Test Item Value Reference Range Interpretation Comme nts POCT PREG (test code = 1605) negative On board controls acceptable with C Line (test code = 3574) present POCT PREG LOT # (test code = 3575) [id number] POCT PREG TEST DATE ( test code = 3576) 11/04/2021 Lab Interpretation (test cod e = 34620-1) Normal [facility] StationTROPONIN [id number] 00:46:00* Test Item Value Reference Range Interpretation Comme nts TROPONIN I (test code = 8816246539) <0.012 See_Comment [Automated message] The system which [...] biotin. ? Lab Interpretation (test code = 90357-4) Normal [facility] StationBAH[facility] (NA, K, CL, CO2, GLUCOSE, BUN, CREATININE, CA)2020-07-01 00:46:00* Test Item Value Reference Range Interpretation Comme nts NA (test code = 3830923605) 141 mmol/L 135-145 K (test code = 6995046062) 3.8 mmol/L 3.5-5 CL (test code = 4444015660) 108 mmol/L 98-108 CO2 TOTAL (test code = 7135133678) 25 mmol/L 23-31 AGAP (test code = 5087432468) 2-16 BUN (test code = 4137132796) 10 mg/dL 7-23 GLUCOSE (test code = 7231799408) 92 mg/dL 70-110 CREATININE (test code = 5854567204) 0.58 mg/dL 0.5-1.04 CALCIUM (test code = 9571850157) 9.4 mg/dL 8.6-10.6 eGFR Calculation (Non-) (test code = 5644937911) mL/min/1.73m2 eGFR Calculation () (test code = 7522491953) mL/min/1.73m2 DARWIN (test code = DARWIN) Association [...] [facility] StationN-TERMINAL TMU-[id number] 00:43:00* Test Item Value Reference Range Interpretation Comme nts NT-proBNP (test code = 8498425128) 332 pg/mL See_Comment H [Automated message] The system which generated this result transmitted reference range: <=125. The reference range was not used to interpret this result as normal/abnormal. DARWIN (test code = DARWIN) Biotin has been reported to cause a negative bias, interpret results relative to patient's use of biotin. Lab Interpretation (test code = 66822-1) Abnormal [facility] StationXR CHEST 1 [id number] 00:20:50No acute cardiopulmonary abnormality Preliminary Report Dictated [...] abovereport.[facility] StationCT CERVICAL SPINE WO [id number] 23:23:[address] EXAMINATION: CT [...] CT.[facility] StationPOCT [id number] 01:50:00* Test Item Value Reference Range Interpretation Comme nts POCT PREG (test code = 1605) Negative On board controls acceptable with C Line (test code = 3574) Present POCT PREG LOT # (test code = 3575) [id number] POCT PREG TEST DATE ( test code = 3576) 10/05/2021 Lab Interpretation (test cod e = 22256-8) Normal [facility] StationTroponin [id number] 01:24:00* Test Item Value Reference Range Interpretation Comme nts TROPONIN I (test code = 1224390664) <0.012 See_Comment [Automated message] The system which [...] biotin. ? Lab Interpretation (test code = 05356-2) Normal [facility] StationCOVID-19 (ID NOW RAPID TESTING)2020-06-13 01:22:00* Test Item Value Reference Range Interpretation Comme nts SARS-CoV-2 Rapid ID NOW (test code = 53413-0) Not Detected Not Detected DARWIN (test code = DARWIN) ID NOW COVID-19 As say is an isothermal nucleic acid amplification test intended for the qualitative detection of nucleic acid from SARS-CoV-2 viral RNA in nasopharyngeal (PSYCHOLOGIST EXPERIMENTAL) specimens. It is used under Emergency Use [...] clinically indicated. Lab Interpretation (test code = 00517-2) Normal [facility]-[id number] 01:16:00* Test Item Value Reference Range Interpretation Comments D-DIMER (test code = 6196737510) See_Comment [Automated message] The system which generated [...] a diagnosis. Lab Interpretation (test code = 28041-0) Normal [facility] StationBasaint [place] Metabolic Panel (NA, K, CL, CO2, GLUCOSE, BUN, CREATININE, CA)2020-06-13 01:13:00* Test Item Value Reference Range Interpretation Comme nts NA (test code = 9221457090) 137 mmol/L 135-145 K (test code = 7400711437) 4.2 mmol/L 3.5-5 CL (test code = 1355116547) 103 mmol/L 98-108 CO2 TOTAL (test code = 0705261463) 25 mmol/L 23-31 AGAP (test code = 6496294503) 2-16 BUN (test code = 0714851043) 11 mg/dL 7-23 GLUCOSE (test code = 8492091168) 98 mg/dL 70-110 CREATININE (test code = 1721575203) 0.52 mg/dL 0.5-1.04 CALCIUM (test code = 9277859283) 10.3 mg/dL 8.6-10.6 eGFR Calculation (Non-) (test code = 4451488628) mL/min/1.73m2 eGFR Calculation () (test code = 7860114498) mL/min/1.73m2 DARWIN (test code = DARWIN) Association [...] [facility] StationHepatic Function Panel (ALB, T.PRO, BILI T, BU/BC, ALT, AST, ALK PHOS)2020-06-13 01:13:00* Test Item Value Reference Range Interpretation Comme nts TOTAL BILI (test code = 6252268309) 0.5 mg/dL 0.1-1.1 BILI UNCON (test code = 2408861470) 0.3 mg/dL 0.1-1.1 BILI CONJ (test code = 3599709584) 0.0 mg/dL 0-0.3 T PROTEIN (test code = 6995262089) 7.3 g/dL 6.3-8.2 ALBUMIN (test code = 4969148258) 4.2 g/dL 3.5-5 ALK PHOS (test code = 3387260608) 85 U/L 34-122 ALTv (test code = 1742-6) 66 U/L 5-35 H AST(SGOT) (test code = 9482701816) 32 U/L 13-40 Lab Interpretation (test cod e = 51513-8) Abnormal [facility] StationLipase [id number] 01:13:00* Test Item Value Reference Range Interpretation Comme nts LIPASE (test code = 8557386301) 60 U/L 0-220 Lab Interpretation (test cod e = 17528-7) Normal [facility] StationUrinalysis2020-12-07 01:03:00* Test Item Value Reference Range Interpretation Comme nts APPEARANCE (test code = 9500422387) Clear Clear COLOR (test code = 8931907450) Straw Yellow A PH (test code = 2462114468) 4.8-8.0 SP GRAVITY (test code = 1785834750) 1.003-1.030 GLU U QUAL (test code = 6965960378) Normal Normal BLOOD (test code = 4463318278) Negative Negative KETONES (test code = 8593446994) Negative Negative PROTEIN (test code = 2887-8) Negative Negative UROBILIN (test code = 5210971896) Normal Normal BILIRUBIN (test code = 6998293083) Negative Negative NITRITE (test code = 9005076169) Negative Negative LEUK MARC (test code = 8239589576) Negative Negative RBC/HPF (test code = 4772063264) See_Comment [Automated messa ge] The system which generated this result transmitted reference range: 0 - 3 HPF. The reference range was not used to interpret this result as normal/abnormal. WBC/HPF (test code = 5641532317) See_Comment [Automated messa ge] The system which generated this result transmitted reference range: 0 - 5 HPF. The reference range was not used to interpret this result as normal/abnormal. BACTERIA (test code = 8030836805) Negative Negative MUCOUS (test code = 7240792013) Slight Negative LPF A SQ EPITH (test code = 7810658338) HPF Lab Interpretation (test code = 89311-9) Abnormal [facility] StationCBC with Xnfdibhfqerp0105-50-56 00:55:00* Test Item Value Reference Range Interpretation Comme nts WBC (test code = 6690-2) See_Comment H [Automated messa ge] The system which generated this result transmitted reference range: 4.30 - 11.10 10*3/?L. The reference range was not used to interpret this result as normal/abnormal. RBC (test code = 789-8) See_Comment [Automated [employer] ge] The system which generated this result [...] 34.5 g/dL 31.6-35.1 RDW-SD (test code = 19505-4) 42.5 fL 39-49.9 RDW-CV (test code = 788-0) 13.5 % 12-15.5 PLT (test code = 777-3) See_Comment [Automated [employer] ge] The system which generated this result transmitted reference range: 166 - 358 10*3/?L. The reference range was not used to interpret this result as normal/abnormal. MPV (test code = 76015-4) 10.1 fL 9.5-12.9 NRBC/100 WBC (test code = 9442739091) See_Comment [Automated [employer] ssage] The system which generated this result transmitted reference range: 0.0 - 10.0 /100 WBCs. The reference range was not used to interpret this result as normal/abnormal. NRBC x10^3 (test code = 7232878113) <0.01 See_Comment [Automated [employer] ge] The system which generated this result transmitted reference range: 10*3/?L. The reference range was not used to interpret this result as normal/abnormal. GRAN MAT (NEUT) % (test code = 770-8) 61.9 % IMM GRAN % (test code = 8873731495) 0.60 % LYMPH % (test code = 736-9) 30.6 % MONO % (test code = 5905-5) 5.2 % EOS % (test code = 713-8) 1.4 % BASO % (test code = 706-2) 0.3 % GRAN MAT x10^3(ANC) (test code = 4416835643) 8.03 10*3/uL 1.88-7.09 H IMM GRAN x10^3 (test code = 1246508486) 0.08 10*3/uL 0-0.06 H LYMPH x10^3 (test code = 731-0) 3.97 10*3/uL 1.32-3.29 H MONO x10^3 (test code = 742-7) 0.68 10*3/uL 0.33-0.92 EOS x10^3 (test code = 711-2) 0.18 10*3/uL 0.03-0.39 BASO x10^3 (test code = 704-7) 0.04 10*3/uL 0.01-0.07 Lab Interpretation (test code = 80943-0) [facility]normal [facility] StationCOVID-19 (ID NOW RAPID TESTING)2020-05-17 00:27:00* Test Item Value Reference Range Interpretation Comme nts SARS-CoV-2 Rapid ID NOW (test code = 67694-8) Not Detected Not Detected DARWIN (test code = DARWIN) ID NOW COVID-19 As say is an isothermal nucleic acid amplification test intended for the qualitative detection of nucleic acid from SARS-CoV-2 viral RNA in nasopharyngeal (PSYCHOLOGIST EXPERIMENTAL) specimens. It is used under Emergency Use [...] clinically indicated. Lab Interpretation (test code = 30918-2) Normal [facility] Metabolic Panel (NA, K, CL, CO2, GLUCOSE, BUN, CREATININE, CA)2020-05-17 00:00:00* Test Item Value Reference Range Interpretation Comme nts NA (test code = 1945652519) 136 mmol/L 135-145 K (test code = 8883834850) 3.6 mmol/L 3.5-5 CL (test code = 9892374433) 103 mmol/L 98-108 CO2 TOTAL (test code = 0838181030) 26 mmol/L 23-31 AGAP (test code = 7549519608) 2-16 BUN (test code = 6580876404) 13 mg/dL 7-23 GLUCOSE (test code = 9974752608) 130 mg/dL 70-110 H CREATININE (test code = 0943224731) 0.58 mg/dL 0.5-1.04 CALCIUM (test code = 6748250437) 9.9 mg/dL 8.6-10.6 eGFR Calculation (Non-) (test code = 4805293225) mL/min/1.73m2 eGFR Calculation () (test code = 8487706837) mL/min/1.73m2 DARWIN (test code = DARWIN) Association [...] imaging tests). Lab Interpretation (test code = 28478-9) [facility]normal [facility] (ALB, T.PRO, BILI T, BU/BC, ALT, AST, ALK PHOS)2020-05-17 00:00:00* Test Item Value Reference Range Interpretation Comme nts TOTAL BILI (test code = 6813454503) 0.4 mg/dL 0.1-1.1 BILI UNCON (test code = 4759317828) 0.3 mg/dL 0.1-1.1 BILI CONJ (test code = 6939122456) 0.0 mg/dL 0-0.3 T PROTEIN (test code = 2858917878) 7.3 g/dL 6.3-8.2 ALBUMIN (test code = 1056704228) 4.3 g/dL 3.5-5 ALK PHOS (test code = 0419625123) 118 U/L 34-122 ALTv (test code = 1742-6) 119 U/L 5-35 H AST(SGOT) (test code = 3673673460) 47 U/L 13-40 H Lab Interpretation (test cod e = 90727-3) Abnormal [facility] StationLipase [id number] 00:00:00* Test Item Value Reference Range Interpretation Comme nts LIPASE (test code = 5360695711) 70 U/L 0-220 Lab Interpretation (test cod e = 01590-4) Normal [facility] StationCBC with [id number] 23:49:00* Test Item Value Reference Range Interpretation Comme nts WBC (test code = 6690-2) See_Comment [Automated LiveStoriesa Signdat] The system which generated this result transmitted reference range: 4.30 - 11.10 10*3/?L. The reference range was not used to interpret this result as normal/abnormal. RBC (test code = 789-8) See_Comment [Automated Live[employer] Signdat] The system which generated this result transmitted [...] 33.3 g/dL 31.6-35.1 RDW-SD (test code = 98307-6) 42.8 fL 39-49.9 RDW-CV (test code = 788-0) 13.5 % 12-15.5 PLT (test code = 777-3) See_Comment [Automated messa ge] The system which generated this result transmitted reference range: 166 - 358 10*3/?L. The reference range was not used to interpret this result as normal/abnormal. MPV (test code = 34838-0) 9.8 fL 9.5-12.9 NRBC/100 WBC (test code = 6589374373) See_Comment [Automated me ssage] The system which generated this result transmitted reference range: 0.0 - 10.0 /100 WBCs. The reference range was not used to interpret this result as normal/abnormal. NRBC x10^3 (test code = 3705693139) <0.01 See_Comment [Automated me ssage] The system which generated this result transmitted reference range: 10*3/?L. The reference range was not used to interpret this result as normal/abnormal. GRAN MAT (NEUT) % (test code = 770-8) 62.5 % IMM GRAN % (test code = 8193024086) 0.50 % LYMPH % (test code = 736-9) 29.8 % MONO % (test code = 5905-5) 5.6 % EOS % (test code = 713-8) 1.1 % BASO % (test code = 706-2) 0.5 % GRAN MAT x10^3(ANC) (test code = 9367052952) 6.65 10*3/uL 1.88-7.09 IMM GRAN x10^3 (test code = 6188025676) 0.05 10*3/uL 0-0.06 LYMPH x10^3 (test code = 731-0) 3.17 10*3/uL 1.32-3.29 MONO x10^3 (test code = 742-7) 0.59 10*3/uL 0.33-0.92 EOS x10^3 (test code = 711-2) 0.12 10*3/uL 0.03-0.39 BASO x10^3 (test code = 704-7) 0.05 10*3/uL 0.01-0.07 [facility] StationACETAMINOPHEN2020-11-08 08:24:00* Test Item Value Reference Range Interpretation Comme nts ACETAMINOP (test code = 8202911727) 21.0 ug/mL 10-30 DARWIN (test code = DARWIN) Toxic: Greater joan n 200 ug/mL @ 4 hour post ingestion or greater than 50 ug/mL @ 12 hour post ingestion Lab Interpretation (test code = 48049-0) Normal [facility] StationETHANOL2020-11-08 06:37:00* Test Item Value Reference Range Interpretation Comme nts ALCOHOL (test code = 5163706918) <10 mg/dL DARWIN (test code = DARWIN) <10 [id number] Toxic>100 Depression of WINE CONSULTANT>400 Fatalities Reported [facility] StationBasi Metabolic Panel (NA, K, CL, CO2, GLUCOSE, BUN, CREATININE, CA)2020-05-15 06:35:00* Test Item Value Reference Range Interpretation Comme nts NA (test code = 7583028652) 137 mmol/L 135-145 K (test code = 0475153019) 4.0 mmol/L 3.5-5 CL (test code = 4100548168) 106 mmol/L 98-108 CO2 TOTAL (test code = 9325933952) 25 mmol/L 23-31 AGAP (test code = 5627222627) 2-16 BUN (test code = 4597311115) 9 mg/dL 7-23 GLUCOSE (test code = 5729655161) 95 mg/dL 70-110 CREATININE (test code = 9336978403) 0.53 mg/dL 0.5-1.04 CALCIUM (test code = 9113151076) 9.0 mg/dL 8.6-10.6 eGFR Calculation (Non-) (test code = 6603246997) mL/min/1.73m2 eGFR Calculation () (test code = 3949921301) mL/min/1.73m2 DARWIN (test code = DARWIN) Association [...] [facility] Station[facility] Function Panel (ALB, T.PRO, BILI T, BU/BC, ALT, AST, ALK PHOS)2020-05-15 06:35:00* Test Item Value Reference Range Interpretation Comme nts TOTAL BILI (test code = 1513857053) 0.4 mg/dL 0.1-1.1 BILI UNCON (test code = 9446697394) 0.2 mg/dL 0.1-1.1 BILI CONJ (test code = 4444987401) 0.0 mg/dL 0-0.3 T PROTEIN (test code = 1268742096) 6.3 g/dL 6.3-8.2 ALBUMIN (test code = 8255099875) 3.8 g/dL 3.5-5 ALK PHOS (test code = 0147111105) 117 U/L 34-122 ALTv (test code = 1742-6) 179 U/L 5-35 H AST(SGOT) (test code = 5824383227) 194 U/L 13-40 H Lab Interpretation (test cod e = 12063-1) Abnormal [facility] StationLipase Ihdzf6880-99-63 06:35:00* Test Item Value Reference Range Interpretation Comme nts LIPASE (test code = 2623665884) 92 U/L 0-220 Lab Interpretation (test cod e = 41330-6) Normal [facility] StationaPTT2020-11-08 06:22:00* Test Item Value Reference Range Interpretation Comme nts APTT Patient (test code = 3173-2) See_Comment [Automated message] The system which generated this result transmitted reference range: 23 - 38 Seconds. The reference range was not used to interpret this result as normal/abnormal. DARWIN (test code = DARWIN) The [facility] patient population mean normal value for aPTT is 30 seconds. Lab Interpretation (test code = 25919-9) Normal [facility] StationUrinalysis2020-11-08 06:21:00* Test Item Value Reference Range Interpretation Comme nts APPEARANCE (test code = 1551667717) Clear Clear COLOR (test code = 9335488556) Yellow Yellow PH (test code = 4226962933) 4.8-8.0 SP GRAVITY (test code = 6974568809) 1.003-1.030 GLU U QUAL (test code = 9376184492) Normal Normal BLOOD (test code = 8020417538) Negative Negative KETONES (test code = 6423086161) Negative Negative PROTEIN (test code = 2887-8) Negative Negative UROBILIN (test code = 0235690071) Normal Normal BILIRUBIN (test code = 7980625312) Negative Negative NITRITE (test code = 2660005486) Negative Negative LEUK MARC (test code = 3194385113) Negative Negative RBC/HPF (test code = 5809855921) See_Comment [Automated LiveStoriesa ge] The system which generated this result transmitted reference range: 0 - 3 HPF. The reference range was not used to interpret this result as normal/abnormal. WBC/HPF (test code = 1009863576) <1 See_Comment [Automated messa ge] The system which generated this result transmitted reference range: 0 - 5 HPF. The reference range was not used to interpret this result as normal/abnormal. BACTERIA (test code = 7743438380) Negative Negative MUCOUS (test code = 8416754821) Slight Negative LPF A SQ EPITH (test code = 7356250840) HPF Lab Interpretation (test code = 50139-0) Abnormal [facility] StationProthrombin Time (PT) / [id number] 06:20:00 * Test Item Value Reference Range [...] the indications. Lab Interpretation (test code = 59710-8) Normal [facility] StationADC / [facility] - DRUG SCREEN [id number] 06:19:00* Test Item Value Reference Range Interpretation Comme nts BENZO U (test code = 0419424992) Presumptive Positive Negative A ROSA U (test code = 2187243006) Negative Negative AMPHET (test code = 3850308596) Negative Negative THC (test code = 2219167579) Negative Negative METHADONE (test code = 8323354164) Negative Negative Meth U (test code = 7950779473) Negative Negative OPIATES (test code = 9255309639) Negative Negative Cocaine Metabolite (test code = 4376941652) Negative Negative PROPOXY (test code = 4145104414) Negative Negative Tric U (test code = 2444901944) Negative Negative PCP (test code = 5438643480) Negative Negative OXYCOD (test code = 8074211518) Negative Negative DARWIN (test code = DARWIN) [...] legal testing). Lab Interpretation (test code = 66528-7) Abnormal [facility] with Zirxdrhizpuu3671-72-38 06:07:00* Test Item Value Reference Range Interpretation Comme nts WBC (test code = 6690-2) See_Comment [Automated LiveStoriesa Signdat] The system which generated this result transmitted reference range: 4.30 - 11.10 10*3/?L. The reference range was not used to interpret this result as normal/abnormal. RBC (test code = 789-8) See_Comment [Automated LiveStoriesa Signdat] The system which generated this result transmitted [...] 34.3 g/dL 31.6-35.1 RDW-SD (test code = 59050-7) 43.4 fL 39-49.9 RDW-CV (test code = 788-0) 13.7 % 12-15.5 PLT (test code = 777-3) See_Comment [Automated LiveStoriesa ge] The system which generated this result transmitted reference range: 166 - 358 10*3/?L. The reference range was not used to interpret this result as normal/abnormal. MPV (test code = 01823-3) 9.7 fL 9.5-12.9 NRBC/100 WBC (test code = 5646076480) See_Comment [Automated me ssage] The system which generated this result transmitted reference range: 0.0 - 10.0 /100 WBCs. The reference range was not used to interpret this result as normal/abnormal. NRBC x10^3 (test code = 4406445121) <0.01 See_Comment [Automated messa ge] The system which generated this result transmitted reference range: 10*3/?L. The reference range was not used to interpret this result as normal/abnormal. GRAN MAT (NEUT) % (test code = 770-8) 50.6 % IMM GRAN % (test code = 5203794403) 0.20 % LYMPH % (test code = 736-9) 42.1 % MONO % (test code = 5905-5) 5.5 % EOS % (test code = 713-8) 1.2 % BASO % (test code = 706-2) 0.4 % GRAN MAT x10^3(ANC) (test code = 0019907107) 4.31 10*3/uL 1.88-7.09 IMM GRAN x10^3 (test code = 3868044134) <0.03 0-0.06 LYMPH x10^3 (test code = 731-0) 3.58 10*3/uL 1.32-3.29 H MONO x10^3 (test code = 742-7) 0.47 10*3/uL 0.33-0.92 EOS x10^3 (test code = 711-2) 0.10 10*3/uL 0.03-0.39 BASO x10^3 (test code = 704-7) 0.03 10*3/uL 0.01-0.07 Lab Interpretation (test code = 80205-8) Abnormal [facility] Jtrs2678-34-65 05:53:00* Test Item Value Reference Range Interpretation Comme nts POCT PREG (test code = 1605) Negative On board controls acceptable with C Line (test code = 3574) Present POCT PREG LOT # (test code = 3575) HCG [id number] POCT PREG TEST DATE ( test code = 3576) 10/05/2021 Lab Interpretation (test cod e = 17773-9) Normal [facility] Consult Notes Date/Time Note Provider Source 2024-11-01 09:43:46 Associated Order(s): CONSULT CARDIOLOGY [facility] Cardiology Consult Note Patient: Charity Roca Date of : 1980 Date of service: 11/01/2024 Primary Care Physician: Riddhi Montes CHIEF COMPLAINT: Chief Complaint Patient presents [...] palpitations at rest. No syncopal attacks. Primary refuse driver: Dr. Jerson MONTE dated 11/2023. Reports having [...] Problem Relation Age of Onset Heart Mother CA in her 40s Heart Father CA in his 60s SOCIAL HISTORY Social History [...] Alexey Alegre MD, 81 mg at 11/01/24 08 clopidogreL (PLAVIX) 75 mg tablet 75 mg, 75 mg, Oral, DAILY, Alexey Alegre MD, 75 mg at 11/01/24 08 famotidine (PEPCID AC) tablet 20 mg, 20 mg, Oral, BID, Alexey Alegre MD, 20 mg at 11/01/24818 haloperidoL (HALDOL) tablet 2 mg, 2 mg, Oral, QHS, Alexey Alegre MD hydralAZINE (APRESOLINE) injection 10 mg, 10 mg, Slow IV Push, Q4HPRN, Alexey Alegre MD hydrOXYzine (ATARAX) tablet 50 mg, 50 mg, Oral, A82HAHD, Alexey Alegre MD isosorbide mononitrate (IMDUR) 24 hr tablet 60 mg, 60 mg, Oral, DAILY, Alexey Alegre MD, 60 mg at 11/01/24818 lisinopriL (PRINIVIL,ZESTRIL) tablet 40 mg, 40 mg, [...] CAD Essential hypertension 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 This report was dictated using SaySwap and is subject to voice recognition errors. [...] feel free to call our office at [phone]. I would be happy to be of further assistance for Charity Roca wellbeing. Voice recognition software has been used to create portions of this document. An attempt to proofread has been made to minimize errors. Please do not hesitate to call with any questions. Natasha Hernandes MD 11/01/2024 9:43 AM Table Games Manager, Division of Cardiology [facility] - Health History and Physical Notes Date/Time Note Provider Source 2024-11-26 21:52:18 [facility] Hospitalist Admission H&P Date of Service: 11/26/2024 CHIEF COMPLAINT: Chest pain rule out acute coronary syndrome HISTORY OF PRESENT ILLNESS Charity Roca is a 44 year old female who presents with chest discomfort. Patient's had numerous admissions recently over the last few months for chest pain at multiple hospitals. Patient had a cardiac catheterization on 2 different occasions last year. About a year ago she had a stent placed in the right coronary artery-posterior descending artery-as patient had a 90% lesion in that region. Since that time she had a repeat catheterization done in June 2024 as well as a catheterization done about 3-1/2 weeks ago at [place] and at that time patient did not require any intervention. Patient did have moderate LAD and moderate left circumflex disease and a stent in the RCA. There was mild in-stent restenosis but no intervention was needed. Patient was discharged on medication for angina and blood pressure control. Continues to have recurrent issues with angina. Blood pressure remains fairly elevated whenever the symptoms occur. She also has a component of PTSD and anxiety disorder which also exacerbates her clinical condition. At this time, patient will be admitted to the hospital for further workup. Patient will need observation admission and cardiology consultation. PAST MEDICAL HISTORY Past Medical History: Diagnosis Date Anxiety Hypertension PTSD (post-traumatic stress disorder) of family members. PAST SURGICAL HISTORY Past Surgical History: Procedure Laterality Date CHOLECYSTECTOMY TONSILLECTOMY ALLERGIES No Known Allergies MEDICATIONS Current home medication list reviewed: Patient's Medications START taking these medications No [...] taking these medications No medications on file FAMILY HISTORY Family History Problem Relation Age of Onset Heart Mother CA in her 40s Heart Father CA in his 60s SOCIAL HISTORY Social History Socioeconomic History Marital status: Number of children: 0 Years of education: 12 Highest education level: High school graduate Occupational History Occupation: disabled Tobacco Use Smoking status: Every Day Types: Cigarettes Smokeless tobacco: Current Tobacco comments: In the process of quitting. Now smokes 5 cigarettes/ day from 2 packs per day Social Drivers of Health Food Insecurity: No Food Insecurity (11/02/2024) NCSS - Food Insecurity Worried About Running Out of Food in the Last Year: No Ran Out of Food in the Last Year: No Transportation Needs: No Transportation Needs (11/02/2024) NCSS - Transportation Lack of Transportation: No Housing Stability: Not At Risk (11/02/2024) NCSS - Housing/Utilities Has Housing: Yes Worried About Losing Housing: No Unable to Get Utilities: No REVIEW OF SYSTEMS 10 systems negative except per HPI PHYSICAL EXAMINATION BP (!) 133/99 | Pulse 87 | Temp 36.8 ?C (98.3 ?F) (Oral) | Resp 14 | Ht 1.575 m (5' 2") | Wt 108.4 kg (239 lb) | SpO2 97% | BMI 43.71 kg/m? General: No acute distress HEENT: Normal oral mucosa, anicteric sclerae, NCAT Cardiovascular: RRR Lungs: Symmetric expansion, clear bilaterally Abdomen: Soft, NTND Musculoskeletal: No synovitis, normal muscle mass Genitourinary: Deferred Skin: No rash, no skin lesions Extremities: No clubbing, no cyanosis, no lower extremity edema Neuro: AAOx3, no focal deficits Psych: Normal affect LABS - reviewed pertinent labs as below: CBC BMP PT/INR WBC x10 3 (/CMM) Date Value 07/23/2004 11.4 (H) WBC (10*3/?L) Date Value 11/26/2024 9.60 NA Date Value 11/26/2024 137 mmol/L 07/23/2004 140 MMOL/L No results found for: "PT" RBC x10 6 (/CMM) Date Value 07/23/2004 5.22 (H) RBC (10*6/?L) Date Value 11/26/2024 4.35 K Date Value 11/26/2024 3.1 mmol/L (L) 07/23/2004 3.9 MMOL/L INR (no units) Date Value 11/01/2024 1.0 PLT x10 3 (/CMM) Date Value 07/23/2004 301 PLT (10*3/?L) Date Value 11/26/2024 338 CALCIUM Date Value 11/26/2024 9.1 mg/dL 07/23/2004 9.5 MG/DL HGB Date Value 11/26/2024 11.4 g/dL (L) 07/23/2004 14.9 G/DL CL Date Value 11/26/2024 103 mmol/L 07/23/2004 106 MMOL/L aPTT HCT (%) Date Value 11/26/2024 34.8 (L) 07/23/2004 43.1 BUN Date Value 11/26/2024 6 mg/dL (L) 07/23/2004 6 MG/DL (L) APTT Patient (Seconds) Date Value 11/03/2024 43 (H) CREATININE Date Value 11/26/2024 0.51 mg/dL 07/23/2004 0.77 MG/DL IMAGING - reviewed, pertinent results as below: Hospital Encounter on 11/26/24 XR Chest 1 vw Narrative CHEST ONE VIEW ORDERING PHYSICIAN: KLAUDIA NARVAEZ CLINICAL HISTORY:Chest pain ; TECHNIQUE: Single frontal radiograph of the chest was obtained. COMPARISON: Radiograph 10/31/2024. FINDINGS: Cardiac silhouette is within normal limits. No focal lung consolidation. No pneumothorax or pleural effusion. No acute osseous abnormality. Impression No acute cardiopulmonary abnormality. HS:Y RL: [id number] End of Report. Findings of cardiac catheterization on 11/03/24: Coronary dominance: right Left main: Large, long, [...] mild LI PLB: Small LVEDP: 11 mmHg ASSESSMENT/PLAN: 1. Chest pain rule out acute coronary syndrome: Continue with antiplatelet therapy and statin therapy and strict blood pressure control. Patient is on aspirin and Plavix which we will resume. Continue with Crestor 40 daily. Resume strict blood pressure control with metoprolol and isosorbide. 2. History of uncontrolled hypertension; strict blood pressure control as mentioned above. May need to adjust BP meds as indicated. 3. History of anxiety disorder and PTSD; resume anxiolytics and medication for PTSD. Patient will need close psychiatric follow-up and may need behavioral therapy to assist in her psychiatric care that may also benefit her medical conditions. 4. GI DVT prophylaxis DVT prophylaxis: enoxaparin Stress ulcer prophylaxis: pantoprazole Code status: FULL Advanced Care Planning (Z71.89) Above assessment and plan discussed at length with patient, patient expressed full understanding. Questions and concerned addressed. Surrogate decision maker: NO Level of care expected after discharge: HOME Time spent: 3 minutes discussing the advanced care plan Smoking Cessation: (Z71.6) Tobacco user?: NO Patient will require observation [place] [employer] was verified during stay Alexx Kwok MD [facility] 2024-11-03 12:52:39 Pre-Procedure Sedation Evaluation H&P from [...] completed and signed. Alec Antoine MD PGY-5, Burglar Alarm Inspector Pager: [phone] Cosigned by Dane Jurado MD at 11/03/2024 1:11 PM CDT Associated attestation - Dane Jurado MD - 11/03/2024 1:11 PM CDT I agree with the note as written Dane Jurado M.D. Interventional Cardiology Pager: [phone] INTERVENTIONAL CARDIOLOGY [facility] 2024-11-01 18:17:28 [facility] Admit H&P PCP: Riddhi Montes Date of Service: 11/01/2024 CHIEF COMPLAINT: Chest pain HISTORY OF PRESENT ILLNESS Charity Roca is a 44 year old female with a PMH of morbid obesity, HTN, HLD, CAD s/p PCI (reported 10/06/2023, outpatient refuse driver is Dr. Arthur), prior pancreatitis, PTSD, depression and anxiety who presented as a transfer from [facility] for unstable angina. The patient reported that [...] in BP. Cardiology consulted, recommended transfer to [facility] for invasive coronary angiography. Upon arrival to [facility], patient evaluated at bedside. Stated that she [...] VW Date: 10/31/2024 10:00 PM Ordering provider: BOB GARCIA Comparison: 10/12/2024. Findings: Frontal view of [...] reflect atelectasis or infiltrate. RL: [id number] AFC: [id number] 11/01/2024 EKG with Sinus tachycardia, possible LA [...] Qtc 444 ms. Plan: - Admit to [facility] [place] for possible LHC - C/w Heparin gtt - C/w ASA 81 mg QD, Plavix 75 mg QD - Increased Rosuvastatin to 40 mg QD - C/w Imdur 60 mg QD, consider increasing to 90 mg QD - NTG 0.4mg SL q5min prn angina - Morphine 2mg IV q4h prn angina - Telemetry, O2 per protocol, Electrolytes: K >4, Mg>2 - Patient's outpatient refuse driver is Dr. Arthur PTSD Depression Anxiety Patient reported that she follows with [facility] Roberson for psychiatric telehealth and Riddhi Montes for PCP. Stated that she takes Xanax 2 mg BID (per PDMP Xanax 0.5 mg last dispensed/ordered 05/12/2024), haldol 2 mg QHS for insomnia, and Hydroxyzine 50 mg BIDPRN for breakthrough anxiety. Plan to medrec with Christian in AM and reduce xanax dose in the interim, patient amenable to plan. - Medrec with [facility] in AM - C/w home Haldol 2 mg QHS, consider d/c as patient reported taking for insomnia - Xanax 0.5 mg BIDPRN for now Pain ControlledTylenol and Morphine Prophylaxis: DVT- heparin Stress Ulcer: famotidine Code Status: addressed: Full Code Farnaz Nixon DO Department of Internal Medicine, PGY-2 I saw and examined the patient and agree with the resident's initial H &P as written by Dr. Nixon I actively participated in the decision-making process. Please see the resident's initial H&P for additional details. DOS 11/02/24 Rosario Virk MD, FACC Table Games Manager Division of Cardiovascular Medicine [facility] 2024-11-01 00:05:09 MEDICINE [facility] ADMIT H&P Date of Service: 11/01/2024 CHIEF [...] protonix, ketorlac and it did not help. Forger Helper: Dr. Arthur PAST MEDICAL HISTORY Past Medical History: Diagnosis Date Anxiety Hypertension PTSD (post-traumatic stress disorder) of family members. Past Surgical History: Procedure Laterality Date CHOLECYSTECTOMY TONSILLECTOMY Family History Problem Relation Age of Onset Heart Mother CA in her 40s Heart Father CA in his 60s ALLERGIES No Known Allergies [...] Vomiting (N/V). 8 tablet 0 azithromycin (ZITHROMAX Z-HEENA) 250 mg tablet Take 1 tablet by [...] VW Date: 10/31/2024 10:00 PM Ordering provider: BOB GARCIA Comparison: 10/12/2024. Findings: Frontal view of [...] intervention for the workup and treatment of... T [facility] [employer] 2023-02-16 01:18:50 Formatting of this n ote [...] the ACR Incidental Findings Committee;Journal of the [employer] Volume 7, Issue 10, Pages 351-397, April 2010). CHEST 1 VW Result Date: [...] process is identified in the chest. RL: [id number] END OF REPORT Assessment and plan: Principal [...] Flako Mercado MD 02/16/2023 IM-INTERNAL MEDICINE STAFF [facility] Procedure Notes Date/Time Note Provider Source 2024-11-03 14:54:32 Procedure(s): SD CATH PLMT L HRT & ARTS W/NJX & ANGIO IMG S&I; SD IV DOP EDILSON&/OR PRESS C/EVERETT RSRV JEFRY 1ST VSL; SD IV DOP EDILSON&/OR PRESS C/EVERETT RSRV JEFRY ADDL VSL Pre-Procedure Diagnose(s): Coronary artery disease involving grayling coronary artery of grayling heart with unstable angina pectoris Post-Procedure Diagnose(s): Coronary artery disease involving grayling coronary artery of grayling heart with unstable angina pectoris Left Heart Cath/Coronary Angiography Charity Roca Date of Service: 11/03/2024 2:55 PM Attending Physician: Dane Jurado MD Fellow: Dr. Jones Referring Physician: Dr. Sandra Procedures Performed: LHC/Coronary Angiogram: CPT 83882 FFR of mLAD: CPT 40947 FFR of mRCA: CPT 64495 Indication/Diagnosis: ACS ([place]/NSTEMI) Consent: Risks, benefits, alternatives and complications of the procedure discussed with the patient, who understood and agreed to proceed. Aseptic technique: Chlorprep Local Anesthesia: 1% lidocaine without epinephrine Sedation: Moderate Access site: right femoral artery Closure Method: Angio-Seal Sterile dressing: yes Complications: none Procedures: After patient identification/verification, the patient was thereafter transferred to the blood bank laboratory technologist table. The access site was prepped and [...] MD 11/03/2024 2:55 PM IM-INTERVENTIONAL CARDIOLOGY STAFF [facility] Notes <thead> Date/Time Note Provider Source 2024-11-27 13:25:33 Problem: Falls, Risk of Goal: Absence of falls Outcome: Adequate for discharge Problem: Pain Goal: Control of pain at or below patient's documented comfort goal Outcome: Adequate for discharge Goal: Reduction in pain sensation Outcome: Adequate for discharge Problem: Discharge Planning Goal: Adequate for discharge Outcome: Adequate for discharge Goal: Adequate to move to next level of care Outcome: Adequate for discharge Goal: Knowledge of medication management Outcome: Adequate for discharge Problem: Cardiac Output - Decreased Goal: Absence of signs and symptoms of decreased cardiac output Outcome: Adequate for discharge Problem: Pain Goal: Control of pain at or below patient's documented comfort goal Outcome: Adequate for discharge Goal: Reduction in pain sensation Outcome: Adequate for discharge Problem: Tissue Perfusion, Cardiopulmonary - Altered Goal: Circulatory function within specified parameters Outcome: Adequate for discharge Maame Chen RN [facility] 2024-11-27 01:17:18 Problem: Falls, Risk of Goal: Absence of falls Outcome: Progressing as expected Problem: Pain Goal: Control of pain at or below patient's documented comfort goal Outcome: Progressing as expected Goal: Reduction in pain sensation Outcome: Progressing as expected Problem: Discharge Planning [...] pain sensation Outcome: Progressing as expected Problem: Tissue Perfusion, Cardiopulmonary - Altered Goal: Circulatory function within specified parameters Outcome: Progressing as expected T [facility] 2024-11-26 22:27:16 Patient admitted to [facility] Med Surg for diagnosis of Chest pain Patient agrees to admission, discussed plan of care with patient and family. Patient is awake, alert, oriented, resp reg unlabored, color appropriate for race, PIV intact No adverse reaction to medications administered while in ED Belongings with patient to unit Report to Sneha RAMIREZ Santi Delgadillo RN [facility] 2024-11-26 22:26:34 Nurse Report Report given to Sneha RAMIREZ. Chief complaint, assessment findings, infusion verify and orders reviewed. Santi Delgadillo RN T [facility] 2024-11-26 20:45:[address] Kwok pertaining to medication orders. BP was rechecked to be 125/[address] Kwok stated to hold the Nitro Paste, continue the Haldol 2mg administration, and give the Ida PRN. [facility] 2024-11-26 17:49:47 Pt to ED [facility] constant CP that radiates into her L shoulder and down her arm x 1 hour. Reports it is aggravated by movement/exertion. EMS gave nitro x 1, pt had no relief. Pt also took 324mg ASA. Reports fatigue and generalized malaise for the past week. Hx of one stent placement 1 yr ago. Adeline Montelongo RN [facility] 2024-11-26 17:48:00 [facility] Emergency Department Note Patient Name: Charity Roca Date of : 1980 44 year old female Treatment Room: [place] [id number] Primary Care Physician: Riddhi Montes Patient Escorted by: Self [9] Mode of Arrival: EMS - [facility] [45] EMS Treatment Prior to ED Arrival: TRANSITIONAL CARE NURSE treatment: Aspirin;NTG TRANSITIONAL CARE NURSE treatment comments: 324mg ASA Travel and Exposure Screening: Symptoms Does patient have any of these symptoms?: (not recorded) Exposure Screening Has patient had contact with someone with a communicable disease in the last month?: (not recorded) Diseases exposed to:: (not recorded) Is Patient ?: (not recorded) Exposure Date: (not recorded) Chief Complaint: Chief Complaint Patient presents with Chest Pain History of Present Illness: History of Present Illness The patient is a 44-year-old female with a history of hypertension, HLD, and CAD and post-stenting in September 2023, presenting with chest pain. She began experiencing chest pain approximately 1.5 hours prior to her visit. The pain is described as being located in the left chest, radiating into the neck and down the arm, but is not associated with shortness of breath. She took 4 baby aspirins and was administered nitroglycerin by EMS, neither of which alleviated her symptoms. She has been experiencing a constellation of symptoms including nausea, vomiting, body aches, chills, and headaches for the past week. She also reports a general sense of fatigue. She is not taking any medications for these symptoms. MEDICATIONS Aspirin, nitroglycerin. HPI Past Medical History/Immunizations: Past Medical History: Diagnosis [...] Systems: Review of Systems Constitutional: Positive for chills, fatigue and fever. HENT: Negative for congestion, postnasal drip and sore throat. Eyes: Negative for pain. Respiratory: Negative for cough, chest tightness, shortness of breath and stridor. Breasts: Negative for pain. Cardiovascular: Positive for chest pain. Gastrointestinal: Positive for nausea and vomiting. Negative for diarrhea. Genitourinary: Negative for dysuria. Musculoskeletal: Positive for myalgias. Skin: Negative. Neurological: Positive for headaches. Negative for dizziness and light-headedness. Physical Exam: Physical Exam ED Triage Vitals [11/26/24 1750] Weight 108.4 kg (239 lb) Actual or estimated Estimated by patient/family report Height 1.575 m (5' 2") BP (!) 166/88 Pulse 110 Resp 16 Temp 36.8 ?C (98.3 ?F) Temp source Oral SpO2 100 % Measured on Room air Physical Exam Constitutional: General: She is not in acute distress. Appearance: She is well-developed. She is obese. HENT: Head: Normocephalic and atraumatic. Eyes: Pupils: Pupils are equal, round, and reactive to light. Cardiovascular: Rate and Rhythm: Normal rate. Pulmonary: Effort: Pulmonary effort is normal. Abdominal: General: There is no distension. Musculoskeletal: General: Normal range of motion. Cervical back: Normal range of motion. Skin: General: Skin is warm and dry. Neurological: Mental Status: She is alert and oriented to person, place, and time. Radiology: No orders to display Lab Results: Lab Results - No data to display EKG: If EKG completed, see Procedure Note. Orders and Treatments: Orders Placed This Encounter Procedures XR Chest 1 vw Cbc with Diff Comp. Metabolic Panel (90525) Lipase Magnesium N-Terminal Pro-Bnp Troponin I No orders of the defined types were placed in this encounter. First Provider Eval: ED Events None ED COURSE Diagnosis/Impression as of 11/26/24 1828 Chest pain, unspecified type Results Testing EKG performed at 17:53 demonstrated a rate of 112, sinus tachycardia, left axis deviation, age indeterminate anterolateral infarct, no ST segment dynamic changes. Procedures: Procedures MDM: Assessment & Plan 1. Chest pain. She has a moderate risk heart score. The chest pain is left-sided, radiating into the neck and down the arm, not associated with shortness of breath. She took 4 baby aspirins and was given nitroglycerin by EMS, which did not alleviate the pain. An EKG performed at 17:53 showed a rate of 112, sinus tachycardia, left axis deviation, age-indeterminate anterolateral infarct, and no ST segment dynamic changes. Cardiac enzymes will be evaluated to rule out acute coronary syndrome (ACS). Pain medications will be administered.Placed in observation for ACS rule out. 2. Viral syndrome. She has had a week of nausea, vomiting, body aches, chills, and headaches. Antinausea medications will be provided to manage her symptoms. PROCEDURE The patient underwent stenting in September 2023. Medical Decision Making Amount and/or Complexity of Data Reviewed Labs: ordered. Radiology: ordered. Risk Prescription drug management. Parenteral controlled substances. Flowsheet Documentation: Scoring Tools: No data recorded Disposition/Condition: ED Disposition None Discharge Medications: Patient's Medications [...] medications on file Follow-up: Electronically signed by: Klaudia Narvaez DO 11/26/24 232 [facility] 2024-11-14 22:15:04 Radiology reported to RN that pt was not in room when he arrived to take her for CT. Aprox 10 min later pt still not in room. Pt eloped before dispo. Becky Rios RN [facility] 2024-11-14 20:41:53 C/o bilateral lower back pain x1 day Took APAP at 5pm with no relief Dysuria Renato Doan RN [facility] 2024-11-14 20:36:00 [facility] Emergency Department Note Patient Name: Charity Roca Date of : 1980 44 year old female Treatment Room: Room/bed info not found Primary Care Physician: Riddhi Montes Patient Escorted by: Self [9] Mode of Arrival: Personal means [1] EMS Treatment Prior to ED Arrival: TRANSITIONAL CARE NURSE treatment: None Travel and Exposure Screening: Symptoms Does patient have any of these symptoms?: (not recorded) Exposure Screening Has patient had contact with someone with a communicable disease in the last month?: (not recorded) Diseases exposed to:: (not recorded) Is Patient ?: (not recorded) Exposure Date: (not recorded) Chief Complaint: Chief Complaint Patient presents with Flank Pain History of Present Illness: The patient presents from home for evaluation for bilateral flank pain since yesterday. No injury or trauma. No fevers or chills. No nausea or vomiting. She does complain of dysuria. She took 4 Tylenol tablets around 5 PM this evening which has helped slightly. She reports her pain is worse with bending and moving and does feel better when she is still. No history of diabetes. She does have a history of high blood pressure as well as anxiety. She has had her gallbladder removed but no other abdominal surgeries. Her last menstrual period was 1 week ago and she denies being . Here for evaluation. Past Medical History/Immunizations: Past Medical History: Diagnosis [...] Systems: Review of Systems Constitutional: Negative for chills and fever. Respiratory: Negative for cough and shortness of breath. Cardiovascular: Negative for chest pain. Gastrointestinal: Negative for abdominal pain, nausea and vomiting. Genitourinary: Positive for dysuria and flank pain. Musculoskeletal: Negative for arthralgias, neck pain and neck stiffness. Skin: Negative for wound. Neurological: Negative for dizziness. Psychiatric/Behavioral: Negative for agitation. Endocrine: Negative for goiter. Physical Exam: ED Triage Vitals [11/14/242042] Weight 108.4 kg (239 lb) Actual or estimated Actual Height 1.575 m (5' 2") BP (!) 165/115 Pulse 87 Resp 17 Temp 36.7 ?C (98.1 ?F) Temp source Oral SpO2 98 % Measured on Room air Physical Exam Vitals and nursing note reviewed. Constitutional: Appearance: Normal appearance. She is obese. HENT: Head: Normocephalic and atraumatic. Cardiovascular: Rate and Rhythm: Normal rate. Pulses: Normal pulses. Pulmonary: Effort: Pulmonary effort is normal. No respiratory distress. Abdominal: General: There is no distension. Palpations: Abdomen is soft. There is no mass. Tenderness: There is no abdominal tenderness. There is no right CVA tenderness, left CVA tenderness, guarding or rebound. Hernia: No hernia is present. Musculoskeletal: General: Normal range of motion. Cervical back: Normal range of motion and neck supple. Skin: General: Skin is warm and dry. Neurological: General: No focal deficit present. Mental Status: She is alert and oriented to person, place, and time. Radiology: No orders to display Lab Results: Lab Results URINALYSIS - Abnormal Result Value Ref Range APPEARANCE Clear Clear COLOR Straw (*) Yellow PH 7.0 4.8 - 8.0 SP GRAVITY 1.006 1.003 - 1.030 GLU U QUAL Normal Normal BLOOD 3+ (*) Negative KETONES Negative Negative PROTEIN Negative Negative UROBILIN Normal Normal BILIRUBIN Negative Negative NITRITE Negative Negative LEUK MARC 25/uL (*) Negative RBC/HPF 135 (*) 0 - 3 HPF WBC/HPF 17 (*) 0 - 5 HPF BACTERIA Negative Negative MUCOUS Slight (*) Negative LPF SQ EPITH 6 HPF POCT TEST - Normal POCT PREG Negative On board controls acceptable with C Line Yes POCT PREG LOT # [id number] POCT PREG TEST DATE 2026-01-04 EKG: If EKG completed, see Procedure Note. Orders and Treatments: Orders Placed This Encounter Procedures CT ABDOMEN PELVIS WO CONTRAST URINALYSIS POCT TEST Orders Placed This Encounter Medications DISCONTD: methocarbamoL (ROBAXIN) tablet 1,000 mg ibuprofen (IBU) tablet 600 mg First Provider Eval: ED Events Date/Time Event User Comments 11/14/242040 Medical Screening Begins BUSHRA RIOS DO -- 11/14/242040 First Provider Evaluation BUSHRA RIOS DO -- ED COURSE Diagnosis/Impression as of 11/14/24 2214 Flank pain Dysuria Procedures: Procedures MDM: Medical Decision Making The patient presents from home for evaluation for bilateral flank pain since yesterday. No injury or trauma. No fevers or chills. No nausea or vomiting. She does complain of dysuria. She took 4 Tylenol tablets around 5 PM this evening which has helped slightly. She reports her pain is worse with bending and moving and does feel better when she is still. No history of diabetes. She does have a history of high blood pressure as well as anxiety. She has had her gallbladder removed but no other abdominal surgeries. Her last menstrual period was 1 week ago and she denies being . Vital signs are stable in the ER. The patient is obese. Her abdomen is soft and nontender. She has no CVA tenderness bilaterally. Her test is negative here in the ER. Will check a urinalysis and provide the patient with pain medication. Anticipate discharge home later. 2119 - Her urinalysis shows a small amount of leukocyte esterase but a large amount of blood. Will obtain a CT of her abdomen pelvis about her possible kidney stone. Anticipate discharge home later. 2214 -several attempts were made to locate the patient for a CT of her abdomen and pelvis however she could not be found. She left the department that notifying staff. Problems Addressed: Dysuria: acute illness or injury Flank pain: acute illness or injury Amount and/or Complexity of Data Reviewed Labs: ordered. Decision-making details documented in ED Course. Radiology: ordered and independent interpretation performed. Decision-making details documented in ED Course. Risk Prescription drug management. Flowsheet Documentation: Scoring Tools: No data recorded Disposition/Condition: ED Disposition ED Disposition Elope - Before Dispo Condition Stable Comment -- Discharge Medications: Patient's [...] medications on file Follow-up: Electronically signed by: Bushra Rios DO 11/14/24 2214 [facility] 2024-11-11 01:03:17 Pt given printed and verbal [...] in no apparent distress, Angelita Patino RN [facility] 2024-11-10 19:56:35 Pt given urine cup and placed back into lobby with instructions for collecting urine sample. [facility] 2024-11-10 19:52:11 Pt arrived ambulatory without assist. Pt c/o left lower abd pain that started around 12pm today. Shaneka Atkinson RN [facility] 2024-11-10 19:51:00 [facility] Emergency Department Note Patient Name: Charity Roca Date of : 1980 44 year old female Treatment Room: [facility] ED [facility] Primary Care Physician: Riddhi Montes Patient Escorted by: Family [5] Mode of Arrival: Personal means [1] EMS Treatment Prior to ED Arrival: TRANSITIONAL CARE NURSE treatment: None Travel and Exposure Screening: Symptoms [...] History provided by: Patient and medical records contour sander used: No Abdominal Pain Pain location: LUQ [...] with contrast, 11/10/2024 8:45 PM. Ordering Physician: BOB GARCIA. History: Abdominal pain, acute, nonlocalized LEFT [...] Additional chronic findings as detailed above. RL: 0592 End of Report Lab Results: Lab Results [...] 0.01 - 0.07 10*3/uL COMP. METABOLIC PANEL (00538) - Abnormal NA 137 135 - 145 [...] contrast Cbc with Diff Comp. Metabolic Panel (72350) Urinalysis POCT TEST Lipase Orders Placed This Encounter Medications morpHINE (4 mg/mL) injection 4 mg ondansetron (ZOFRAN (PF)) injection 4 mg iopamidol (ISOVUE 370-500 mL) injection 80 mL morpHINE (4 mg/mL) injection 4 mg KCL (KLOR-CON M20) tablet 40 mEq First Provider Eval: ED Events Date/Time Event User Comments 11/10/241999 First Provider Evaluation BOB GARCIA MD -- 11/10/241999 Medical Screening Begins BBO GARCIA MD -- ED COURSE Diagnosis/Impression as [...] illness or injury Details: Will follow-up with OB-CARE TEAM COORDINATOR SCHEDULER Amount and/or Complexity of Data Reviewed Labs: [...] on file Follow-up: Contact information for follow-up Riddhi Montes Relationship: PCP - General KelleeMarcio [address] [facility] [id number] Electronically signed by: Bob Garcia MD 11/11/24 0024 [facility] [employer] 2024-11-04 10:58:35 Pt tolerating meals Up with minimal assist Right site clean, dry and intact; covered with gauze and tegaderm Laya Langley RN [facility] 2024-11-04 06:19:25 Problem: Falls, Risk of Goal: [...] Outcome: Progressing as expected Anuradha Heard RN [facility] 2024-11-03 19:16:34 Problem: Falls, Risk of Goal: Absence of falls Outcome: Progressing as expected Problem: Discharge Planning Goal: Adequate to move to next level of care Outcome: Progressing as expected Goal: Knowledge of medication management Outcome: Progressing as expected Renato Mott RN [facility] 2024-11-03 04:24:10 Problem: Falls, Risk of Goal: [...] Outcome: Progressing as expected Omaira Diaz RN [facility] 2024-11-02 07:22:14 Problem: Falls, Risk of Goal: [...] Omaira Diaz RN Outcome: Progressing as expected [facility] 2024-11-02 07:21:23 Problem: Falls, Risk of Goal: [...] Goal: Patent airway Outcome: Progressing as expected [facility] 2024-11-01 14:02:33 Report given to JAMES Trejo. IN Willard RN [facility] 2024-11-01 08:41:16 Images from the original note were not included. Pharmacy Recommendations for Patient Admission: Consider lowering dose of famotidine to 20mg once daily as patient has been taking this dose at home. The TRANSITIONAL CARE NURSE medication list has been updated and reflected in the chart below. Please use the TRANSITIONAL CARE NURSE Med List for ordering home doses during admission. Patient Adherence: Adherent to all medications. Source(s) used in interview: Patient Interview limitations: None Medications Added Medications Removed Medications Modified Alprazolam dose reduced to 1mg BID prn Famotidine ordered as 20mg BID Methocarbamol ordered as 500mg Q6H prn Allergies as of 10/31/2024 (No Known Allergies) Pharmacy Updated TRANSITIONAL CARE NURSE Med List Medication Sig aspirin 81 mg [...] in the evening.) Outpatient Pharmacy Contact Information: [facility] [id number] - [place], [place] - [address] [facility] [address] [facility] [id number] [facility] - [place] [address] [place] [address] [facility] #[id number] - [place] - [address] [place] [address] Thank you for the opportunity to participate in the care of this patient. Surekha Rowland RPH 8:38 AM, 11/01/2024 [facility] Department of Pharmacy - [facility] Phone: ADC: [phone] T Surekha Rowland [facility] 2024-11-01 01:15:13 Problem: Falls, Risk of Goal: [...] Absence of infection Outcome: Progressing as expected [facility] 2024-11-01 00:27:06 Patient states pain to chest no 6/10-appears much more comfortable, Bp normotensive. Transported via W/C to 2217. Patient alert, warm, dry, pink, in no distress upon departure from ER [facility] 2024-11-01 00:22:38 Nurse Report Report given to Bhupinder RAMIREZ. Chief complaint, assessment findings, infusion verify and orders reviewed. Plan of care discussed at bedside with patient. Patient verbalized understanding. MAGGIE CACERES RN [facility] 2024-10-31 23:15:00 Patient continues to C/O persistent sharp midsternal chest pain 03/17. Medicated as ordered with GI cocktail po and Morphine 4 mg IV. [facility] 2024-10-31 22:15:00 Dr Garcia at bedside. Medicated with NTG 0.4 mg Sl for sharp chest pain 04/16 without relief. Patient then medicated with Zofran 4 mg Iv and Morphine 4 mg IV as ordered. Patient anxious, hypertensive. [facility] 2024-10-31 21:36:50 C/O onset sharp midsternal chest pain that radiates to left arm, left shoulder, and left scapula area-has been steadily worsening. Has had nausea and vomiting. Patient has had CA in the past, has cardiac stent X1 placed in September of last year. O2 at 2 liters/min placed without improvement to chest pain. [facility] Maggie Caceres RN [facility] 2024-10-31 21:24:00 Associated Order(s): EKG-12 Lead ROUTINE ONCE Pre-Procedure Diagnose(s): Chest pain, unspecified type Post-Procedure Diagnose(s): Chest pain, unspecified type [facility] Emergency Department Note Patient Name: Charity Roca Date of : 1980 44 year old female Treatment Room: TR9/9 Primary Care Physician: Riddhi Montes Patient Escorted by: Family [5] Mode of Arrival: Personal means [1] EMS Treatment Prior to ED Arrival: TRANSITIONAL CARE NURSE treatment: Other (comment) TRANSITIONAL CARE NURSE treatment comments: Protoniz, 4 baby ASA, Toradol [...] been vomiting about five times today. 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 No known aggravating or relieving factors. Pt has taken ASA 324 mg TRANSITIONAL CARE NURSE in the ED. Pt smokes 1/3PPD , No ETOH. Deneis any illcit drug use. No prolonged immobilization. No OCA. No leg edema or calf pain. Deneis any URI symptoms. No abdominal pain History provided by: Significant other and patient contour sander used: No Chest Pain Pain location: Epigastric [...] S/P Stent X 06 September 2023 Q-wave CA Tetanus received in last 5 years: Unknown [...] Temp source 11/01/24 0357 TEMPORAL ART SpO2 10/31/242128 100 % Measured on 10/31/242128 Room air Physical Exam Vitals and nursing [...] VW Date: 10/31/2024 10:00 PM Ordering provider: BOB GARCIA Comparison: 10/12/2024. Findings: Frontal view of [...] reflect atelectasis or infiltrate. RL: 781 AFC: 00116 Lab Results: Lab Results COMP. METABOLIC PANEL (00537) - Abnormal Result Value Ref Range NA [...] 1 vw TROPONIN I COMP. METABOLIC PANEL (29192) LIPASE, SERUM CBC WITH DIFF POCT Test Cbc with Diff Basic Metabolic Panel (NA, K, CL, CO2, GLUCOSE, BUN, CREATININE, CA) Troponin I Procalcitonin Influenza A B RSV COVID NAAT Lab Only COVID Interpretation N-Terminal Pro-Bnp Lipid Panel (96229)(Total Cholesterol, Triglycerides, HDL) Glycosylated Hemoglobin (A1C) Urinalysis [...] despite observation care. AdmissionCare documentation entered by: Bob Garcia [facility], 28th edition, Copyright ? 2023 [facility] [email or web address] [facility] All Rights Reserved. [id number]:00 ED COURSE Diagnosis/Impression as of 11/03/24 0459 Chest pain, unspecified type Procedures: EKG-12 Lead ROUTINE ONCE Date/Time: 10/31/2024 9:32 PM Performed by: Bob Garcia MD Authorized by: Bob Garcia MD ECG interpreted by ED Physician in the absence of a refuse driver: yes Previous ECG: Previous ECG: Compared to [...] - Observation Condition -- Comment Treatment Team: [facility] [[id number]] Discharge Medications: Current Discharge Medication List STOP [...] Reason for Stopping: Follow-up: Electronically signed by: Bob Garcia MD 11/03/24 0459 T [facility] [employer] 2024-10-31 21:24:00 AdmissionCare Guideline: Chest Pain, Inpatient [...] despite observation care. AdmissionCare documentation entered by: [facility] [employer], 28th edition, Copyright ? 2023 [facility] [employer] All Rights Reserved. [id number]:59:01-05:00 T [facility] [employer] 2024-10-23 23:53:58 Awake, alert oriented X4, respiratory [...] lobby with steady gait. Connie Rivera RN [facility] 2024-10-23 20:14:29 Patient arrived ambulatory to ED c/o upper abdominal pain that radiates to the left side. Went to PCP today and they told her if it was still hurting come to the ER. Toradol taken today with no relief. States she feels like it is her pancreas. Jen Merrill RN [facility] 2024-10-23 20:12:00 [facility] Emergency Department Note Patient Name: Charity Roca Date of : 1980 44 year old female Treatment Room: TX1/TX1 Primary Care Physician: Riddhi Montes Patient Escorted by: Family [5] Mode of Arrival: Personal means [1] EMS Treatment Prior to ED Arrival: TRANSITIONAL CARE NURSE treatment: Medication (comment) TRANSITIONAL CARE NURSE treatment comments: Toradol Travel and Exposure Screening: [...] 0.01 - 0.07 10*3/uL COMP. METABOLIC PANEL (36224) - Abnormal NA 136 135 - 145 [...] contrast Cbc with Diff Comp. Metabolic Panel (21160) Lipase Urinalysis Orders Placed This Encounter Medications morpHINE (4 mg/mL) injection 6 mg ondansetron (ZOFRAN (PF)) injection 4 mg NaCl 0.9% (NS) bolus infusion 1,000 mL cefTRIAXone (ROCEPHIN) 1,000 mg in water for injection, sterile 10 mL IV Push iopamidol (ISOVUE 370-500 mL) injection 100 mL First Provider Eval: ED Events Date/Time Event User Comments 10/23/242014 Medical Screening Begins JUANJOSE BARKER MD -- 10/23/242014 First Provider Evaluation JUANJOSE BARKER MD -- ED COURSE Diagnosis/Impression as of 10/23/24 2340 Abdominal pain, unspecified abdominal location Procedures: Procedures MDM: Medical Decision Making Amount and/or Complexity of Data Reviewed Labs: ordered. Radiology: ordered. Risk Prescription drug management. Parenteral controlled substances. A) Hiatal Hernia, UTI Disposition/Condition: Home, Pepcid, Ida/Zofran prn, Cefdinir x 7 days, ER warnings, f/u PCP ED Disposition None Discharge Medications: Patient's Medications START taking these medications No medications on file CONTINUE taking these medications which have NOT CHANGED ALPRAZOLAM ORAL Take 2 mg by mouth in the morning and 2 mg in the evening. AZITHROMYCIN (ZITHROMAX Z-HEENA) 250 MG TABLET Take 1 tablet by [...] on file Follow-up: PCP Electronically signed by: Juanjose Barker MD 10/23/24 6026 [facility] 2024-10-23 10:16:39 Patient is here for a follow up from the hospital for chest pain and back pain. She needs a refill on the Hydroxyzine Pamoate 50 mg. She scored high for depression and anxiety but reports that she is able to use her coping mechanisms, has a place where she feels safe, and a safe person. [facility] 2024-10-13 02:45:03 Pt given printed and verbal [...] in no apparent distress. Jeana Pringle RN [facility] 2024-10-12 22:25:27 Pt arrived ambulatory without assist. Pt c/o chest pain that started around 8pm, and UTI symptoms that started yesterday. Shaneka Atkinson RN [facility] 2024-07-19 01:23:02 Pt given printed and [...] with steady gait, in no apparent distress, TRICAL CAD TECHNICIAN [facility] 2024-07-19 00:57:31 ERP at bedside. [facility] 2024-07-19 00:09:25 07/18/24 2356 07/19/24 0000 07/19/24 0008 Orthostatic Vitals BP 132/56 (!) 139/92 (!) 157/112 BP Location Left arm Left arm Right leg Position Lying Sitting Standing Pulse 79 78 78 NYA Merrill RN [facility] 2024-07-18 23:44:12 Patient states "feeling like crap. Every time I stand up everything gets dizzy, black, and I feel like I am going to pass out." [facility] 2024-07-18 22:39:11 Pt brought in by [...] and pain in back. Pt went to [facility] yesterday and they said she was low on potassium (was given 4 tablets of potassium). Pt took home medications today NYA Atkinson RN [facility] 2024-07-04 01:30:39 PT D/C home. GCS15, [...] someone drive her home. NYA Ayala RN [facility] 2024-07-03 19:51:20 Pt arrives ambulatory to ED c/o N/V/D x3 days and says today began having right side abdominal pain. NYA Rios RN [facility] 2024-06-21 02:58:12 Pt given printed and [...] with steady gait, in no apparent distress. [facility] 2024-06-21 01:57:43 Pt arrives ambulatory to ED c/o "spider bite" upper right abdomen area. She says she squeezed it right before coming in and puss came out of it, leaving a black hole. So she came in to be evaled. NYA Rios RN [facility] 2024-06-15 00:27:31 Pt given printed and [...] in no apparent distress, NYA Delgadillo RN [facility] 2024-06-14 22:55:00 Report given to JAMES Delgadillo NYA Emery RN [facility] 2024-06-14 21:23:27 Patient arrived ambulatory to ED c/o abdominal pain that started Saturday. Patient recently had heart cath placed on . States "haven't been keeping anything down. I can't even keep my medications down." NYA Merrill RN [facility] 2024-06-07 02:39:24 Pt given printed and [...] in no apparent distress, NYA Delgadillo RN [facility] 2024-06-07 00:46:48 Report to Leona RAMIREZ. TRICAL CAD TECHNICIAN Adeline Monteolngo RN [facility] 2024-06-06 22:01:17 Patient arrived ambulatory to ED c/o chest pain that started around 1900 tonight. Patient took 4 baby ASA TRANSITIONAL CARE NURSE. Sharp chest pain that radiates to left shoulder. NYA Merrill RN [facility] 2024-05-28 13:02:38 Chief Complaint Patient presents with Shoulder Pain Pt complains of left shoulder pain that has been in pain for last 3 years. Pain is getting worse. No injury. No occupation. Pt has been doing PT for shoulder. She is also taking methocarbamol for pain however it is not helping. [facility] 2024-05-19 13:33:08 Patient given discharge instructions with readback, discussed prescriptions and follow up care. . Steady gait with NAD noted. NYA Davila RN [facility] 2024-05-19 11:42:01 Patient had a fall on Saturday and came into ED to be seen. Had pain meds and scan performed with no significant findings. Patient called her PCP and they told her to go to ER because she could have a concussion or just feel worse. NYA Cronin RN [facility] 2024-05-18 10:27:22 Chief Complaint Patient presents with Physical Patient is fasting. No other issues to discuss Jennifer Del Castillo MA II [facility] 2024-05-17 22:18:24 Pt given printed and verbal [...] with steady gait, in no apparent distress, [facility] Santi Delgadillo RN [facility] 2024-05-17 20:40:54 Okay to release information to father Piyush Roca per patient NYA Atkinson RN [facility] 2024-05-17 20:18:[address] scan and brought to [facility] with RN and trauma team. Continuous cardiac monitoring and serial vital signs monitored by Santi RAMIREZ. Santi Delgadillo RN [facility] 2024-05-17 19:58:[address] scan with RN and trauma team. Continuous cardiac monitoring and serial vital signs monitored by Santi RAMIREZ. Santi Delgadillo RN [facility] 2024-05-17 18:55:00 Received report from Juliano RAMIREZ [facility] 2024-05-17 18:35:54 Report received from EMS. Trauma protocol initiated. Trauma team members at bedside, primary and secondary survey in progress. Pt placed on continuous cardiac monitoring, pulse oximetry, and serial vital signs. Wellington Dorantes RN TRICAL CAD TECHNICIAN [facility] 2024-05-17 18:31:04 Patient arrived by [facility], tripped over a floor tile and hit the occipital area. Unsure of LOC. Patient received 10mg of reglan and morphine 4mg TRANSITIONAL CARE NURSE. TRICAL CAD TECHNICIAN Wellington Dorantes RN [facility] 2024-05-07 21:32:31 Patient discharged to [...] in no apparent distress. Cameron Posada RN [facility] 2024-05-07 18:45:11 Pt arrived ambulatory with complaints of lower back pain, lower abdominal pain, and dysuria since yesterday. Took Tramadol at 2pm IN Lou RN [facility] [id number] 06:28:23 THANK YOU FOR CHOOSING US FOR YOUR MEDICAL CARE AND IT WAS A PLEASURE TO TAKE CARE OF YOU: PUSHPA RODRIGUEZ, MSN, SOLVENT RECOVERER, MANAGER STRATEGIC MARKETING-BC DIAGNOSIS: UTI, GASTROENTERITIS PRESCRIPTION: ZOFRAN AND MACROBID PER PRESCRIPTION DETAILS SENT TO [facility]: ROCEPHIN GIVEN IN ER FOLLOW UP: [...] NO PHYSICIAN MONTSERRAT TERRAZAS MD Work Phone: [address] [address] AIDEN SOLANO MD Work Phone: [address] [place] [phone] ENTER NAME IN NOTES OTHER Future Procedures [...] - Adult August 31, 2023 6:49pm Febru ann2023 6:45pm Electrocardiogram, Complete August 31, 2023 6:49pm [...] is unavailable Patient Instructions <tbody> Otitis Externa, Guwm-aa-Ndtn Allergic Rhinitis, Adult, Ea sy-to-Read Ovarian Cyst, Qbhj-cl-Arsf Abdominal Pain, Adult, Easy- to-Read Renal Mass Nonspecific Chest Pain, Adul t, Kesd-sg-Jlag Acetaminophen; Hydrocodone t ablets or capsules Sucralfate tablets Pantoprazole tablets Ciprofloxacin tablets Nonspecific Chest Pain, Adul t, Jfsr-ml-Whlt Alprazolam tablets Trazodone Tablets Aspirin Tablets Urinary Tract Infection, [place] lt, Kouj-ms-Eewg Dehydration, Adult, Easy-to- Read Urinary Tract Infection, [place] lt, Bfuv-so-Qykd [facility]2024-10-02 20:37:07 Pt given printed and verbal discharge [...] gait, in no apparent distress Renato Doan [facility]NE[facility] [id number] 18:50:37 Nurse Report Report given to renato. Chief complaint, assessment findings, infusion verify and orders reviewed. Plan of care discussed. Lola Reynoso RN Lola Reynoso [place] 610194-10-02 17:27:35 Pt arrived ambulatory complains of abdominal pain and points to her left upper abdominal. Pt states that last time she had this type of pain it was pancreatitis. Reports pain started at 1300 and reports pain is 9/10 and hurts whenever she eats. Harriett Mejia [facility]01[facility] 11:11:13 Chief Complaint Patient presents with Shoulder Pain Left shoulder pain with limited range of motion x 6 months, takes OTC tylenol for the pain as needed but pain is getting worse. 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 Not working currently [facility] [id number] 09:19:27 Chief Complaint Patient presents with [facility] ER follow up with admission on 12/04/2023 for chest pains. She had a stent placed by Dr. Arthur. Jennifer Del Castillo MA II Jennifer Cancino Ujconr2523-60-08 10:49:31 Chief Complaint Patient presents with Anxiety Follow up on anxiety/depression. She states that it has gotten worse since last visit. She had an appointment with [facility] this morning and it was canceled due to internet outage. Jennifer Del Castillo MA II Jennifer Cancino [id number] 13:21:02 Chief Complaint Patient presents with [facility] told her she needed to go to a different doctor because they could not give her anything else Marbella Oh LVN [facility]2024-04-05 00:41:45 Pt given printed and verbal discharge [...] & in no apparent distress. Becky Rios [facility]oj[facility]sh2271-09-81 21:25:46 Pt arrived ambulatory but states feeling like she is going to pass out, Pt placed in ED wheelchair. Pt c/o " I have pain in my back on the left side, it mark when I pee, Im nauseous, I feel like Im going to pass out and I have been crapping on myself." Shaneka Atkinson RNEly[facility] HospitalHdpceo3892-04-31 22:58:41 Pt discharged with diagnosis of RUQ abd pain and chronic abd pain. Printed and verbal instructions reviewed with and given to pt. Prescriptions given x 2. Pt verbalized understanding of teaching, medications, and recommended follow-up. Denies questions or concerns at this time. Pt ambulatory at discharge. Appears in no apparent distress. No ataxia noted. TRICAL CAD TECHNICIAN Adeline Floyd [place] 610193-12-25 19:46:03 Pt states sharp pain to the RLQ that started today around noon, pt denies any urinary symptoms, vomiting X 2 TRICAL CAD TECHNICIAN Razia Yost [place] 610193-09-03 00:14:00 Awake, alert oriented X4, respiratory even [...] noted upon discharge Pt ambulated to the [facility] with steady gait Razia Yost [place] 610193-09-02 23:06:10 Received report from Evy RAMIREZ, assuming care. Brandy Lou [place] 610193-09-02 22:38:[address] scan done. Patient states LQ abdominal pain now 01/14. Maggie Caceres [place] 610193-09-02 22:00:00 POCT test negative. Patient states RLQ abdominal pain improved briefly with IV Morphine administration, then returned at 03/17. Dr Richards informed, and patient medicated as ordered with Fentanyl 75 mcg slow IVP. [place] [address]006-09-02 21:00:00 Medicated as per order with Zofran 4 mg slow IVP and Morphine 4 mg slow IVP for RLQ abdominal pain 03/17. T [place] [address]99-09-02 20:17:52 Pt arrived ambulatory with complaints of RLQ abd pain since yesterday. Pt reports N/V/D. Last took Tylenol at 3pm. Denies dysuria but reports frequency. Hx: Anxiety, Depression, PTSD, Pancreatitis Aline Lou [place] 610193-08-26 01:30:22 Discharged home ambulatory. Home instructions given. John Ventura [place] 610193-08-25 19:32:44 Pt CO of N/V, left lower back pain, painful urination and diarrhea since yesterday, states she was admitted last week for pancreatitis. Pt already promethazine tablets today with no relief. Jean Carlos Alegria [place] 610193-08-25 19:22:00 [facility] Emergency Department Note Patient Name: Charity Roca Date of : 1980 43 year old female Treatment Room: AZ3/[facility] Primary Care Physician: Aiden Solano Patient Escorted by: Family [5] Mode of Arrival: Personal means [1] EMS Treatment Prior to ED Arrival: TRANSITIONAL CARE NURSE treatment: None Travel and Exposure Screening: Symptoms [...] History provided by: Patient and medical records contour sander used: No Abdominal Pain Pain location: Generalized [...] PELVIS W CONTRAST Final Result Ordering physician: BOB GARCIA Indication: Acute abdominal pain COMPARISON: CT [...] adenoma on noncontrast imaging. RL: 460 AFC: 53509 Lab Results: Lab Results CBC WITH DIFF [...] POCT PREG TEST DATE COMP. METABOLIC PANEL (32243) NA 139 135 - 145 mmol/L K [...] CONTRAST CBC WITH DIFF COMP. METABOLIC PANEL (25908) LIPASE URINALYSIS POCT TEST Orders Placed This [...] Event User Comments 03/01/232299 Medical Screening Begins BOB GARCIA MD -- 03/01/232299 First Provider Evaluation BOB GARCIA MD -- No notes of EC [...] medications on file Follow-up: Electronically signed by: Bob Garcia MD 03/02/23 0122 [facility]9567[facility]60[facility]86 02:22:03 Pt given printed and verbal discharge [...] leaving in no apparent distress, Linda Ayala [facility]nrliv4178-80-55 22:53:36 Pt arrived ambulatory with complaints of [...] might be from her anxiety. Aline Lou [facility]Gheobl5247-22-42 15:59:15 Problem: Pain Goal: Control of pain [...] Goal: Effective communication Outcome: Adequate for discharge [facility] Beata Lamar [place] 610193-08-13 00:21:19 Problem: Pain Goal: Control of pain [...] Goal: Effective communication Outcome: Progressing as expected [place] 641113-08-12 16:55:55 Problem: Pain Goal: Control of pain [...] Goal: Effective communication Outcome: Progressing as expected [place] 641113-08-12 03:35:03 Problem: Pain Goal: Control of pain [...] Goal: Effective communication Outcome: Progressing as expected [place] 641113-08-11 19:41:18 Nurse Report Report given to JAMES Gatica. Chief complaint, assessment findings, infusion verify and orders reviewed. Plan of care discussed with both nurses. Stacie Man RN T Stacie Man [place] 42943-08-11 13:40:01 CC: patient presents to the ER [...] amb without assistance. Appears in no distress. [facility]2023-08-11 13:23:00Associated Order(s): EKG-12 Lead ROUTINE ONCE Pre-Procedure Diagnose(s): Chest pain, unspecified type Post-Procedure Diagnose(s): Acute pancreatitis, unspecified complication status, unspecified pancreatitis type [facility] Emergency Department Note Patient Name: Charity Roca Date of : 1980 42 year old female Treatment Room: [place] [address]/[place] [address] Primary Care Physician: Aiden Solano Patient Escorted by: Self [9] Mode of Arrival: Personal means [1] EMS Treatment Prior to ED Arrival: TRANSITIONAL CARE NURSE treatment: None Chief Complaint: Chief Complaint Patient [...] the ACR Incidental Findings Committee;Journal of the [employer] Volume 7, Issue 10, Pages 053-108, April 2010). CHEST 1 VW Final Result [...] process is identified in the chest. RL: 7680 END OF REPORT Lab Results: reviewed by nc Mild leukocytosis, lipase 2048, liver enzymes WNL [...] 0.01 - 0.07 10*3/uL COMP. METABOLIC PANEL (90429) - Abnormal NA 138 135 - 145 [...] INTERPRETATION CBC WITH DIFF COMP. METABOLIC PANEL (18400) LIPASE Orders Placed This Encounter Medications ibuprofen [...] file. ED COURSE ED Course as of 08/11/23 1910 Fri Feb 15, 2023 1803 Accepted by Hospitalist for [...] [PD] Leeanne Wise NP Diagnosis/Impression as of 02/15/23 191 Acute pancreatitis, unspecified complication status, unspecified pancreatitis type Obesity (BMI 30-39.9) Anxiety PTSD (post-traumatic stress disorder) Major depressive disorder, remission status unspecified, unspecified whether recurrent Elevated d-dimer Procedures: EKG-12 Lead ROUTINE ONCE Date/Time: 02/15/2023 6:05 PM Performed by: Leeanne Wise NP Authorized by: Leeanne Wise NP ECG reviewed by ED Physician in the absence of a refuse driver: yes Previous ECG: Previous ECG: Unavailable Interpretation: [...] this a planned re-admission?: No Treatment Team: [facility] [[id number]] Is this patient COVID positive or a patient under investigation (PUI)?: No Electronically signed by: Leeanne Wise NP 02/15/231910 Associated attestation - Bushra Rios DO - 02/16/2023 7:30 AM CDT I was personally available for consultation in the Emergency Department during this encounter and patient evaluation by Leeanne Wise. [facility]
[2024-11-28] MEDS ORDERED: ONDANSETRON 4 MG/2 ML VIAL ONE (17:00)
[2024-11-28] MEDS ORDERED: NA CHLORIDE 0.9% 1,000 ML ONE (17:01)
[2024-11-28] MEDS ORDERED: ASPIRIN 81 MG CHEWABLE TABLET ONE (17:01)
[2024-11-28] MEDS ORDERED: MORPHINE 4 MG/ML SYR ONE (17:01)
[2024-11-28] MEDS ORDERED: FAMOTIDINE 20 MG/2 ML VIAL IV ONE (17:01)
[2024-11-28 17:10] LABS: Absolute Basophils 0.1 K/uL (0-0.5); Absolute Eosinophils 0.2 K/uL (0-0.5); Absolute Lymphocytes (CBC) 2.9 K/uL (0.7-4.9); Absolute Monocytes 0.6 K/uL (0.1-1.3); Basophils % 0.5 % (0-1.3); Eosinophils % 1.7 % (0-4.4); Hematocrit 34.8 % (36.0-45.0); Hemoglobin 11.7 g/dL (12.0-15.0); Lymphocytes % 29.6 % (15.3-44.8); MCH 26.1 pg (27.0-35.0); MCHC 33.6 g/dL (32.0-36.0); MCV 77.6 fL (80-100); MPV 7.4 fL (7.6-11.3); Monocytes % 6.4 % (3.3-12.3); Neutrophils % 61.8 % (41.7-73.7); Nucleated Red Blood Cells % 0.1 % (0-0); Platelets 315 thou/uL (152-406); RBC Red Blood Cell Count 4.49 M/uL (3.86-4.86); Red Cell Distribution Width 18.9 % (12.1-15.2)
[2024-11-28 17:21] LABS: PT Prothrombin Time 11.7 SECONDS (10-13.0); Protime INR 1.03
[2024-11-28 17:24] LABS: Sqamous Epithelial <5 /HPF (None Seen); Urine Bacteria <20 /HPF (<20); Urine Mucus Slight /HPF (None Seen); Urine RBC <5 /HPF (None Seen); Urine WBC <5 /HPF (<5); Urine Yeast (Budding) Trace /HPF (None Seen)
[2024-11-28 17:26] LABS: Specific Gravity 1.016 (1.005-1.030); Urine Bilirubin NEGATIVE (Negative); Urine Blood Negative (Negative); Urine Clarity Clear (Clear); Urine Color Colorless (Yellow); Urine Glucose NEGATIVE (Negative); Urine Ketones NEGATIVE (Negative); Urine Microscopic Reflex YN NO UMIC; Urine Nitrite NEGATIVE (Negative); Urine Protein NEGATIVE (Negative); Urine Urobilinogen Normal (Normal)
[2024-11-28 17:27] LABS: Urine Culture Reflex Order NOT NEEDED
[2024-11-28 17:37] LABS: ALT/SGPT 17 U/L (13-56); AST/SGOT 11 U/L (15-37); Albumin 2.9 g/dL (3.4-5.0); Albumin/Globulin Ratio 0.8 (1.1-1.8); Alkaline Phosphatase 75 U/L (45-117); Anion Gap 8.9 mEq/L (5.0-15.0); BUN Blood Urea Nitrogen 8 mg/dL (7-18); Bicarbonate 26 mEq/L (21-32); Bilirubin Total 0.2 mg/dL (0.2-1.0); Globulin 3.7 g/dL (2.3-3.5); Glomerular Filtration Rate 105 ml/min (=/>90); Glucose Level 110 mg/dL (74-106); Lipase 31 U/L (13-75); Magnesium 1.8 mg/dL (1.6-2.4); NT PRO-BNP 163 pg/mL (<125); Potassium 3.9 mEq/L (3.5-5.1); Protein, Total 6.6 g/dL (6.4-8.2); Sodium Level 139 mEq/L (136-145)
[2024-11-28 17:38] LABS: Bilirubin Direct < 0.2 mg/dL (0-0.2); Troponin High Sensitivity < 3.0 pg/mL (<58.9)
--- NOTE | 2024-11-28 17:44 | EDPHYS ---
Physician Documentation [facility] Name: Charity Hanks Age: 44 yrs Sex: Female : 1980 Arrival Date: 11/28/2024 Time: 15:59 Bed 8 Private MD: ED Physician Mayank Butler HPI: 11/28 17:37 This 44 yrs old Female presents to ER via Ambulatory with complaints of Chest Pain. madeleine 17:37 The patient or guardian reports chest pain that is located primarily in the substernal madeleine area, anterior chest wall, left. Onset: today. The pain radiates to the left shoulder. Associated signs and symptoms: The patient has no apparent associated signs or symptoms. The chest pain is described as a heaviness. Duration: The patient or guardian reports multiple episodes, that have now resolved. Modifying factors: The symptoms are alleviated by nothing. the symptoms are aggravated by nothing. Severity of pain: At its worst the pain was moderate in the emergency department the pain is unchanged. The patient has experienced similar episodes in the past, multiple times. 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 - Infectious Disease History:: Denies. - Social history:: Smoking status: Reported history of juuling and/or vaping. ROS: 17:41 Constitutional: Negative for fever, chills, and weight loss, Eyes: Negative for injury, madeleine pain, redness, and discharge, ENT: Negative for injury, pain, and discharge, Neck: Negative for injury, pain, and swelling, Respiratory: Negative for shortness of breath, cough, wheezing, and pleuritic chest pain, Abdomen/GI: Negative for abdominal pain, nausea, vomiting, diarrhea, and constipation, Back: Negative for injury and pain, : Negative for injury, bleeding, discharge, and swelling, MS/Extremity: Negative for injury and deformity, Skin: Negative for injury, rash, and discoloration, Neuro: Negative for headache, weakness, numbness, tingling, and seizure, Psych: Negative for depression, anxiety, suicide ideation, homicidal ideation, and hallucinations, Allergy/Immunology: Negative for hives, rash, and allergies, Endocrine: Negative for neck swelling, polydipsia, polyuria, polyphagia, and marked weight changes, Hematologic/Lymphatic: Negative for swollen nodes, abnormal bleeding, and unusual bruising, 17:41 Cardiovascular: Positive for chest pain, of the chest, Exam: 17:41 Constitutional: This is a well developed, well nourished patient who is awake, alert, madeleine and in no acute distress. Head/Face: Normocephalic, atraumatic. Eyes: Pupils equal round and reactive to light, extra-ocular motions intact. Lids and lashes normal. Conjunctiva and sclera are non-icteric and not injected. Cornea within normal limits. Periorbital areas with no swelling, redness, or edema. ENT: Nares patent. No nasal discharge, no septal abnormalities noted. Tympanic membranes are normal and external auditory canals are clear. Oropharynx with no redness, swelling, or masses, exudates, or evidence of obstruction, uvula midline. Mucous membranes moist. Neck: Trachea midline, no thyromegaly or masses palpated, and no cervical lymphadenopathy. Supple, full range of motion without nuchal rigidity, or vertebral point tenderness. No Meningismus. Chest/axilla: Normal chest wall appearance and motion. Nontender with no deformity. No lesions are appreciated. Cardiovascular: Regular rate and rhythm with a normal S1 and S2. No gallops, murmurs, or rubs. Normal PMI, no JVD. No pulse deficits. Respiratory: Lungs have equal breath sounds bilaterally, clear to auscultation and percussion. No rales, rhonchi or wheezes noted. No increased work of breathing, no retractions or nasal flaring. Abdomen/GI: Soft, non-tender, with normal bowel sounds. No distension or tympany. No guarding or rebound. No evidence of tenderness throughout. Back: No spinal tenderness. No costovertebral tenderness. Full range of motion. Skin: Warm, dry with normal turgor. Normal color with no rashes, no lesions, and no evidence of cellulitis. MS/ Extremity: Pulses equal, no cyanosis. Neurovascular intact. Full, normal range of motion., bilateral aka Neuro: Awake and alert, GCS 15, oriented to person, place, time, and situation. Cranial nerves II-XII grossly intact. Motor strength 5/5 in all extremities. Sensory grossly intact. Cerebellar exam normal. Normal gait. Psych: Awake, alert, with orientation to person, place and time. Behavior, mood, and affect are within normal limits. 17:41 ECG was reviewed by the Attending Physician. 17:41 Musculoskeletal/extremity: DVT Exam: No signs of deep vein thrombosis. no pain, no swelling, no tenderness, negative Homans' sign noted on exam, no appreciated bluish discoloration, no erythema, no increased warmth, Vital Signs: 16:19 BP 158 / 107; Pulse 120; Resp 20; Temp 98.8; Pulse Ox 96% ; Weight 108.86 kg; Height 5 me1 ft. 2 in. ; Pain 9/10; 18:30 BP 172 / 126; Pulse 102; Resp 18; Pulse Ox 96% ; bp 21:18 BP 148 / 97; Pulse 76; Resp 18; Temp 98.8; Pulse Ox 97% ; bm8 16:19 Body Mass Index 43.90 (108.86 kg, 157.48 cm) me1 16:19 Pain Scale: Adult me1 Radha Coma Score: 21:18 Eye Response: spontaneous(4). Motor Response: obeys commands(6). Verbal Response: bm8 oriented(5). Total: 15. MDM: 16:21 Medical Screening Exam initiated madeleine 17:39 Differential diagnosis: abnormal EKG, acute myocardial infarction, acute pericarditis, madeleine anxiety, coronary artery disease chest wall pain, Cholelithiasis costochondritis, esophagitis, herpes zoster, hiatal hernia, peptic ulcer disease, pericarditis, pleurisy, pulmonary embolus, stable angina, thoracic aortic disection, unstable angina. HEART Score: History: Slightly Suspicious (0), ECG: Non specific repolarization disturbance / LBTB / PM (1), Age: < or = 45 years (0), Risk Factors: > or = 3 Risk factors for atherosclerotic disease (2), [Hypercholesterolemia] [Hypertension] [Active Smoker] [+ Family HX] [Obesity] Troponin: < or = 1 x Normal Limit (0). The patient was given aspirin in the Emergency Department. TATIANA Risk Score: 1 - Three or more CAD risk factors, 1- Known CAD, 1 - ASA use in past 7 days, 1 - Recent [<24hrs] Severe Angina, TOTAL SCORE = 4. Data reviewed: vital signs, nurses notes, lab test result(s), EKG, radiologic studies. Consideration of Admission/Observation Patient was admitted/placed on observation. Escalation of care including admission/observation considered. I considered the following discharge prescriptions or medication management in the emergency department Medications were administered in the Emergency Department. See MAR. Independent interpretation of the following test(s) in the Emergency Department EKG: See my EKG interpretation above. Test considered but Not performed: Ultrasound NO 2 D ECHO. Historians other than the Patient: PT WELL INFORMED. Care significantly affected by the following chronic conditions: Hypertension, Obesity. Counseling: I had a detailed discussion with the patient and/or guardian regarding the historical points, exam findings, and any diagnostic results supporting the discharge/admit diagnosis, lab results, radiology results, the need for further work-up and treatment in the hospital. 11/28 16:26 Order name: Basic Metabolic Panel; Complete Time: 17:46 madeleine 11/28 16:26 Order name: CBC with Diff; Complete Time: 17:33 madeleine 11/28 16:26 Order name: LFT's; Complete Time: 17:46 11/28 16:26 Order name: Magnesium; Complete Time: 17:46 11/28 16:26 Order name: NT PRO-BNP; Complete Time: 17:46 11/28 16:26 Order name: PT-INR; Complete Time: 17:33 11/28 16:26 Order name: Troponin HS; Complete Time: 17:46 11/28 16:26 Order name: Lipase; Complete Time: 17:46 [facility] 11/28 16:26 Order name: UA Rfx Hong Cult if indicated; Complete Time: 17:33 11/28 16:26 Order name: UDS; Complete Time: 18:24 madeleine 11/28 18:24 Order name: Troponin High Sensitivity [facility] 11/28 20:43 Order name: Basic Metabolic Panel [facility] 11/28 20:43 Order name: Basic Metabolic Panel [facility] 11/28 20:43 Order name: CBC with Automated Diff [facility] 11/28 20:43 Order name: CBC with Automated Diff [facility] 11/28 20:43 Order name: Lipid Profile [facility] 11/28 20:43 Order name: Lipid Profile [facility] 11/28 20:43 Order name: Troponin High Sensitivity [facility] 11/28 20:43 Order name: Troponin High Sensitivity [facility] 11/28 20:43 Order name: Troponin High Sensitivity [facility] 11/28 20:43 Order name: Troponin High Sensitivity [facility] 11/28 16:26 Order name: XRAY Chest (1 view); Complete Time: 18:24 [facility] 11/28 20:43 Order name: Echo with Doppler [facility] 11/28 16:26 Order name: Cardiac monitoring; Complete Time: 16:54 [facility] 11/28 16:26 Order name: EKG - Nurse/Tech; Complete Time: 16:54 [facility] 11/28 16:26 Order name: IV Saline Lock; Complete Time: 16:54 [facility] 11/28 16:26 Order name: Labs collected and sent; Complete Time: 16:54 [facility] 11/28 16:26 Order name: O2 Per Protocol; Complete Time: 16:54 [facility] 11/28 16:26 Order name: O2 Sat Monitoring; Complete Time: 16:54 [facility] EC:41 Rate is 114 beats/min. Rhythm is regular. QRS Theodore is Normal. OR interval is normal. [facility] QRS interval is normal. QT interval is normal. No Q waves. T waves are Normal. No ST changes noted. Clinical impression: Sinus tachycardia and No evidence of ischemia. Interpreted by me. Reviewed by me. Administered Medications: 17:10 Drug: Aspirin PO Chewable Tablet 324 mg PO once; 81 mg tablets x 4 Route: PO; bp 21:21 Follow up: Response: No adverse reaction bm8 17:10 Drug: Famotidine IVP 20 mg IVP once; dilute with 10 mL 0.9% NaCl; give over 2 minutes bp Route: IVP; Site: right hand; 21:20 Follow up: Response: No adverse reaction bm8 17:10 Drug: morphine IVP or IV 4 mg IVP once over 4 mins Route: IVP; Infused Over: 4 mins; bp Site: right hand; 21:20 Follow up: Response: No adverse reaction bm8 17:10 Drug: Ondansetron IVP 4 mg IVP once; over 2 minutes Route: IVP; Site: right hand; bp 21:20 Follow up: Response: No adverse reaction bm8 17:10 Drug: NS 0.9% IV 1000 ml IV at 1000 ml once; to be given as a bolus over 60 minutes bp Route: IV; Rate: 1000 ml; Site: right hand; 21:20 Follow up: Response: No adverse reaction; IV Status: Completed infusion bm8 18:00 Drug: Enoxaparin Sub-Q 100 mg Sub-Q once Route: Sub-Q; Site: right lower abdomen; bp 21:20 Follow up: Response: No adverse reaction bm8 18:00 Drug: Metoprolol PO 50 mg PO once Route: PO; bp 21:20 Follow up: Response: No adverse reaction bm8 Disposition Summary: 11/28/24 17:43 Hospitalization Ordered Notes: Hospitalization Status: Observation madeleine Provider: Prince madeleine Desir Location: Telemetry/MedSurg (observation) madeleine Condition: Fair madeleine Problem: new madeleine Symptoms: have improved madeleine Bed/Room Type: Standard madeleine Room Assignment: 411(11/28/24 20:46) vk Diagnosis - Chest pain, unspecified madeleine - Essential (primary) hypertension madeleine - Obesity, unspecified madeleine - Tobacco abuse counseling madeleine - Tobacco use madeleine Forms: - Medication Reconciliation Form madeleine - SBAR form madeleine - Leadership Thank You Letter madeleine Signatures: Dispatcher [employer] EDMS Mayank Butler MD MD cha Peltier, Brian, RN RN bp Yaritza Jane RN RN me1 Sonja Pedraza Brad RN bm8 Corrections: (The following items were deleted from the chart) 16:27 16:27 BASIC METABOLIC PANEL+C.LAB.BRZ ordered. EDMS EDMS 16:27 16:27 CBC+H.LAB.BRZ ordered. EDMS EDMS 16:27 16:27 HEPATIC FUNCTION+C.LAB.BRZ ordered. EDMS EDMS 16:27 16:27 MAGNESIUM+C.LAB.BRZ ordered. EDMS EDMS 16:27 16:27 PROBNP+C.LAB.BRZ ordered. EDMS EDMS 16:27 16:27 PROTIME (+INR)+COAG.LAB.BRZ ordered. EDMS EDMS 16:27 16:27 Troponin High Sensitivity+C.LAB.BRZ ordered. EDMS EDMS 16:27 16:27 LIPASE+C.LAB.BRZ ordered. EDMS EDMS 16:27 16:27 UA Rfx Hong Cult if indicated+U.LAB.BRZ ordered. EDMS EDMS 16:27 16:27 URINE DRUG SCREEN+UC.LAB.BRZ ordered. EDMS EDMS 16 16:27 Chest Single View+RAD.RAD.BRZ ordered. EDMS EDMS 16 16:27 Chest For PE Angio+CT.RAD.BRZ ordered. EDMS EDMS 16 16:27 Abdomen Pelvis W Con+CT.RAD.BRZ ordered. EDMS EDMS 20:46 17:43 madeleine vk
--- NOTE | 2024-11-28 17:44 | ER ---
Nurse's Notes [facility] Name: Charity Hanks Age: 44 yrs Sex: Female : 1980 Arrival Date: 11/28/2024 Time: 15:59 Bed 8 Private MD: Diagnosis: Chest pain, unspecified;Essential (primary) hypertension;Obesity, unspecified;Tobacco abuse counseling;Tobacco use Presentation: 11/28 16:19 Chief complaint: Patient states: n/v/d x 4 days with cp that started today. cp to de1 midsternal chest 9/10, sharp, radiates to left shoulder and arm. Left hand is tingling. Coronavirus screen: Vaccine status: Patient reports receiving the 2nd dose of the covid vaccine. Ebola Screen: No symptoms or risks identified at this time. Initial Sepsis Screen: Does the patient meet any 2 criteria? No. Patient's initial sepsis screen is negative. Does the patient have a suspected source of infection? No. Patient's initial sepsis screen is negative. Risk Assessment: Do you want to hurt yourself or someone else? Patient reports no desire to harm self or others. Onset of symptoms was November 24, 2024. 16:19 Method Of Arrival: [facility] 16:19 Acuity: CARLOS 3 me1 Triage Assessment: 16:20 General: Appears in no apparent distress. uncomfortable, obese, Behavior is bp cooperative, appropriate for age, anxious. Pain: Complains of pain in chest. EENT: No deficits noted. Neuro: No deficits noted. Cardiovascular: Reports chest pain. Respiratory: No deficits noted. GI: No signs and/or symptoms were reported involving the gastrointestinal system. : No signs and/or symptoms were reported regarding the genitourinary system. Derm: No deficits noted. Musculoskeletal: No deficits noted. 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 - Infectious Disease History:: Denies. - Social history:: Smoking status: Reported history of juuling and/or vaping. Screenin:30 [facility] ED Fall Risk Assessment (Adult) History of falling in the last 3 months, bp including since admission No falls in past 3 months (0 pts) Confusion or Disorientation No (0 pts) Intoxicated or Sedated No (0 pts) Impaired Gait No (0 pts) Mobility Assist Device Used No (0 pt) Altered Elimination No (0 pt) Score/Fall Risk Level 0 - 2 = Low Risk Oriented to surroundings. Abuse screen: Denies threats or abuse. Denies injuries from another. Nutritional screening: No deficits noted. Tuberculosis screening: No symptoms or risk factors identified. Assessment: 16:20 General: SEE TRIAGE NOTE. bp 18:30 Reassessment: No changes from previously documented assessment. Patient is alert, bp oriented x 3, equal unlabored respirations, skin warm/dry/pink. 19:36 Reassessment:. General: Appears uncomfortable, Behavior is cooperative. Pain: Complains ha1 of pain in chest Pain does not radiate. Pain currently is 10 out of 10 on a pain scale. Quality of pain is described as pressure, Pain began gradually. Neuro: Level of Consciousness is awake, alert, obeys commands, Oriented to person, place, time, situation. Cardiovascular: Reports chest pain, shortness of breath, Capillary refill < 3 seconds Patient's skin is warm and dry. Respiratory: Reports shortness of breath at rest on exertion Airway is patent Respiratory effort is even, unlabored, Respiratory pattern is regular, symmetrical. GI: No signs and/or symptoms were reported involving the gastrointestinal system. Abdomen is round obese. : No signs and/or symptoms were reported regarding the genitourinary system. Derm: Skin is pink, warm \T\ dry. 21:18 Reassessment: Patient appears in no apparent distress at this time. No changes from bm8 previously documented assessment. Patient and/or family updated on plan of care and expected duration. Pain level reassessed. Patient is alert, oriented x 3, equal unlabored respirations, skin warm/dry/pink. Vital Signs: 16:19 BP 158 / 107; Pulse 120; Resp 20; Temp 98.8; Pulse Ox 96% ; Weight 108.86 kg; Height 5 me1 ft. 2 in. ; Pain 9/10; 18:30 BP 172 / 126; Pulse 102; Resp 18; Pulse Ox 96% ; bp 21:18 BP 148 / 97; Pulse 76; Resp 18; Temp 98.8; Pulse Ox 97% ; bm8 16:19 Body Mass Index 43.90 (108.86 kg, 157.48 cm) me1 16:19 Pain Scale: Adult me1 Radha Coma Score: 21:18 Eye Response: spontaneous(4). Motor Response: obeys commands(6). Verbal Response: bm8 oriented(5). Total: 15. ED Course: 16:02 Patient arrived in ED. ts1 16:20 Triage completed. me1 16:20 Arm band placed on Patient placed in waiting room. me1 16:21 Mayank Butler MD is Attending Physician. [facility] 16:24 Regulo Tavera, JAMES is Primary Nurse. bp 17:00 Initial lab(s) drawn, by me, sent to lab. EKG done, by ED staff, reviewed by Mayank Butler MD. Inserted saline lock: 22 gauge in right hand, using aseptic technique. Blood collected. Patient maintains SpO2 saturation greater than 95% on room air. 17:43 Prince Desir MD is Hospitalizing Provider. [facility] 17:54 XRAY Chest (1 view) In Process Unspecified. EDMS 18:02 Radiology exam delayed due to IV insertion attempt and/or patient not having sm9 appropriate IV at this time. 18:30 Patient has correct armband on for positive identification. Client placed on continuous bp cardiac and pulse oximetry monitoring. NIBP monitoring applied. court recording monitor on. Pulse ox on. NIBP on. 21:18 Provided Education on: NEED FOR ADMISSION. bm8 21:18 No provider procedures requiring assistance completed. Patient admitted, IV remains in bm8 place. Administered Medications: 17:10 Drug: Aspirin PO Chewable Tablet 324 mg PO once; 81 mg tablets x 4 Route: PO; bp 21:21 Follow up: Response: No adverse reaction 8 17:10 Drug: Famotidine IVP 20 mg IVP once; dilute with 10 mL 0.9% NaCl; give over 2 minutes bp Route: IVP; Site: right hand; 21:20 Follow up: Response: No adverse reaction bm8 17:10 Drug: morphine IVP or IV 4 mg IVP once over 4 mins Route: IVP; Infused Over: 4 mins; bp Site: right hand; 21:20 Follow up: Response: No adverse reaction bm8 17:10 Drug: Ondansetron IVP 4 mg IVP once; over 2 minutes Route: IVP; Site: right hand; bp 21:20 Follow up: Response: No adverse reaction bm8 17:10 Drug: NS 0.9% IV 1000 ml IV at 1000 ml once; to be given as a bolus over 60 minutes bp Route: IV; Rate: 1000 ml; Site: right hand; 21:20 Follow up: Response: No adverse reaction; IV Status: Completed infusion bm8 18:00 Drug: Enoxaparin Sub-Q 100 mg Sub-Q once Route: Sub-Q; Site: right lower abdomen; bp 21:20 Follow up: Response: No adverse reaction bm8 18:00 Drug: Metoprolol PO 50 mg PO once Route: PO; bp 21:20 Follow up: Response: No adverse reaction bm8 Medication: 18:30 VIS not applicable for this client. bp Outcome: 17:43 Decision to Hospitalize by Provider. madeleine 21:18 Admitted to Tele accompanied by nurse, via wheelchair, room 411, with chart, bm8 21:18 Condition: stable 21:18 Instructed on the need for admit, Demonstrated understanding of instructions, follow-up care, medications, 21:52 Patient left the ED. bm8 Signatures: Dispatcher [employer] Mayank Wright MD MD cha Peltier, Brian, RN RN Nelly Elena, RN RN ha1 Apple Gomez PAS PAS ts1 Yaritza Jane, RN RN de1 Brittany Chin [facility] Dayne Moody RN RN bm8
[2024-11-28 17:56] LABS: Barbiturates NEGATIVE (NEGATIVE); Benzodiazepines POSITIVE (NEGATIVE); Cocaine NEGATIVE (NEGATIVE); METHAMPHETAM NEGATIVE (NEGATIVE); Methadone NEGATIVE (NEGATIVE); Opiates NEGATIVE (NEGATIVE); Phencyclidine NEGATIVE (NEGATIVE); THC Cannibis NEGATIVE (NEGATIVE)
--- NOTE | 2024-11-28 18:00 | RAD REPORT ---
EXAM: Chest Single View HISTORY: 44 years Female CHEST PAIN COMPARISON: None. FINDINGS: LUNGS/PLEURA: The lungs are clear. No pleural effusions or pneumothorax. No pulmonary edema. Low lung volumes. CARDIAC/MEDIASTINUM: The cardiac silhouette is within normal limits. UPPER ABDOMEN: No significant abnormality. BONES: No acute abnormality. LINES/TUBES/OTHER: N/A IMPRESSION: No evidence of acute cardiopulmonary disease.
[2024-11-28] MEDS ORDERED: ENOXAPARIN 100 MG/ML SYR SQ ONE (18:13)
[2024-11-28] MEDS ORDERED: METOPROLOL TAR 50 MG TAB ONE (18:13)
[2024-11-28] MEDS ORDERED: NITROGLYCERIN 0.4 MG/TAB SL PRN (20:39)
--- NOTE | 2024-11-28 20:43 | P.HP ---
Certification for Inpatient Patient admitted to: Observation With expected LOS: <2 Midnights Practitioner: I am a practitioner with admitting privileges, knowledge of patient current condition, hospital course, and medical plan of care. Services: Services provided to patient in accordance with Admission requirements found in Title 42 Section 412.3 of the Code of Federal Regulations Patient History Date of Service: 11/28/24 Reason for admission: chest pain History of Present Illness: Patient is a 44-year-old female with known past medical history of cor onary disease status post PCI in the past. She presented to the ER complaining of substernal chest pain radiating to her left arm and associated with left hand paresthesia. Patient has been having the symptoms for the past 5 days. Her exercise tolerance has been poor. She tried to use Imdur but with no relief. Her first troponin in the ED is negative. Her second troponin is negative. Allergies No Known Allergies Allergy (Verified 06/11/24 01:05) Home Medications: Suvorexant [Belsomra] 20 mg PO BEDTIME 12/05/23 Aspirin [Adult Aspirin Regimen] 81 mg PO DAILY 30 Days #30 tab 12/06/23 Clopidogrel Bisulfate [Plavix*] 75 mg PO DAILY 30 Days #30 tab 12/06/23 Metoprolol Succinate [Toprol Xl*] 25 mg PO DAILY 05/11/24 Rosuvastatin [Crestor*] 20 mg PO BEDTIME 05/11/24 Sertraline [Zoloft*] 150 mg PO DAILY 06/11/24 Isosorbide Mononitrate [Isosorbide Mononitrate ER] 60 mg PO DAILY 08/22/24 Pantoprazole Sodium [Protonix] 40 mg PO DAILY 08/22/24 Albuterol Neb [Proventil 0.083% Neb Soln] 2.5 mg NEB [id number] #60 amp 08/25/24 Amox/Clavulanate [Augmentin 875-125 Tab*] 875 mg PO BID #14 tab 08/25/24 Benzonatate [Tessalon Perle*] 200 mg PO TID #30 cap 08/25/24 Guaifen W/Codeine Syrup [ROBITUSSIN A-C Syrup*] 10 ml PO BID PRN #150 ml 08/25/24 Ipratropium Neb [Atrovent*] 0.5 mg NEB [id number] #60 amp 08/25/24 Mometasone/Formoterol [Dulera 200 Mcg/5 Mcg Inhaler] 2 puff IH BID #1 inhaler 08/25/24 Roflumilast [Daliresp*] 500 mcg PO DAILY #30 tab 08/25/24 Tramadol HCl/Acetaminophen [Tramadol-Acetaminophn 37.5-325] 1 each PO Q6HP PRN #30 tab 08/25/24 predniSONE [Prednisone*] 20 mg PO BID #11 tab 08/25/24 - Past Medical/Surgical History Diabetic: No -: Anxiety/depression -: Bipolar -: PTSD -: HLD -: MD -: Angina -: HTN -: Cholecystectomy -: tonsillectomy -: cardiac stent x1 Psychosocial/ Personal History: Unemployed, lives at home with her father and 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 - Family History Mother -: Heart disease Father -: Heart disease Brother Notes: bipolar. anxiety. depression - Social History Alcohol use: No CD- Drugs: No Caffeine use: Yes Physical Examination - Physical Exam General: Acute distress, Obese HEENT: Atraumatic, Normocephalic Respiratory: Clear to auscultation bilaterally, Normal air movement Cardiovascular: No edema, Normal pulses, Regular rate/rhythm, Normal S1 S2 Neurological: Normal speech - Studies Laboratory Data (last 24 hrs) 11/28/24 11/28/24 11/28/24 16:58 16:58 16:58 WBC 9.70 Hgb 11.7 L Hct 34.8 L Plt Count 315 PT 11.7 INR 1.03 Sodium 139 Potassium 3.9 BUN 8 Creatinine 0.72 Glucose 110 H Magnesium 1.8 Total Bilirubin 0.2 AST 11 L ALT 17 Alkaline Phosphatase 75 Lipase 31 Assessment and Plan - Problems (Diagnosis) (1) CAD (coronary artery disease) Current Visit: No Status: Acute (2) Chest pain Current Visit: No Status: Acute Qualifiers: (3) HLD (hyperlipidemia) Current Visit: No Status: Acute (4) HTN (hypertension) Current Visit: No Status: Acute - Plan Assessment This is a 44-year-old female with known coronary artery disease status post PCI. She is being admitted for chest pain ACS rule out. Her first troponin is negative. Urine toxicology positive for benzodiazepine Chest pain-ACS rule out Coronary disease status post PCI Morbid obesity Plan: Will admit under observation with telemetry Obtain a 2D echo Trend troponin Continue aspirin, atorvastatin and as needed nitroglycerin She will benefit from cardiology evaluation given history of coronary disease DVT prophylaxis - Advance Directives Does patient have a Living Will: No Does patient have a Durable POA for Healthcare: No
[2024-11-28] MEDS: ATORVASTATIN 80 MG TAB PO SCH (21:00)
[2024-11-28] MEDS: MORPHINE 2 MG/ML SYR IV PRN (21:59)
[2024-11-28] MEDS: HYDRALAZINE HCL 20 MG/ML VIAL IV PRN (21:59)
[2024-11-28 23:51] VITALS: BMI 43.9
[2024-11-29 06:30] LABS: Absolute Eosinophils 0.2 K/uL (0-0.5); Absolute Lymphocytes (CBC) 2.2 K/uL (0.7-4.9); Absolute Monocytes 0.5 K/uL (0.1-1.3); Absolute Neutrophil 5.2 K/uL (1.8-8.0); Basophils % 0.5 % (0-1.3); Eosinophils % 2.4 % (0-4.4); Hematocrit 33.8 % (36.0-45.0); Hemoglobin 11.4 g/dL (12.0-15.0); Lymphocytes % 27.3 % (15.3-44.8); MCH 26.2 pg (27.0-35.0); MCHC 33.6 g/dL (32.0-36.0); MCV 77.9 fL (80-100); MPV 7.3 fL (7.6-11.3); Monocytes % 5.9 % (3.3-12.3); Neutrophils % 63.9 % (41.7-73.7); Platelets 282 thou/uL (152-406); RBC Red Blood Cell Count 4.34 M/uL (3.86-4.86); Red Cell Distribution Width 19.4 % (12.1-15.2)
[2024-11-29 07:00] LABS: Anion Gap 8.4 mEq/L (5.0-15.0); Potassium 3.4 mEq/L (3.5-5.1)
[2024-11-29 07:20] LABS: Troponin High Sensitivity 3.8 pg/mL (<58.9)
[2024-11-29] MEDS ORDERED: ASPIRIN EC 81 MG TAB PO SCH (09:00)
[2024-11-29] MEDS: PANTOPRAZOLE 40MG TABLET PO SCH (09:20)
[2024-11-29] MEDS: ENOXAPARIN 40 MG/0.4 ML SQ SCH (09:20)
[2024-11-29] MEDS: hydrOXYzine HCL 25 MG TAB PO SCH (09:20)
[2024-11-29 09:21] VITALS: O2SAT 95
[2024-11-29] MEDS: SERTRALINE HCL 100 MG TAB PO SCH (09:21)
[2024-11-29] MEDS: CLOPIDOGREL 75 MG TABLET PO SCH (09:21)
[2024-11-29] MEDS: lisinopriL 5 MG TAB PO SCH (09:21)
[2024-11-29] MEDS: ISOSORBIDE MONO SR 30 MG TAB PO SCH (09:21)
[2024-11-29] MEDS: ASPIRIN EC 81 MG TAB PO SCH (09:21)
[2024-11-29] MEDS: METOPROLOL XL 25 MG TAB PO SCH (09:21)
[2024-11-29 17:15] VITALS: BP 108/66; TEMP 98.2
[2024-11-29] MEDS ORDERED: HALOPERIDOL 1 MG PO SCH (21:00)
[2024-11-29] MEDS ORDERED: ROSUVASTATIN 10 MG TAB PO SCH (21:00)
--- NOTE | 2024-11-29 21:05 | CON ---
Date of Consultation: 11/29/2024 Reason For Consultation: Chest pain. History Of Present Illness: 44-year-old female with history of coronary artery disease, status post PCI about a year and a half ago who comes in with chest pain, pressure like, radiates to her neck and upper extremity and on the left side along with dyspnea on exertion. Has been happening for the pas t few days and she was hospitalized and chest pain is resolved. Cardiac enzymes are negative. She f eels well and she is currently an active smoker. Past Medical History: Coronary artery disease, dyslipidemia, hypertension. Medications: Refer to reconciliation sheet for detailed list. Allergies: NO KNOWN DRUG ALLERGIES. Past Surgical History: Cardiac stent placement, cholecystectomy, tonsillectomy. Family History: No premature coronary artery disease or cancer. Social History: She is an active smoker. Does not drink or use any drugs. Review of Systems: All systems reviewed and they were negative except as mentioned in the HPI. Physical Examination: Vital Signs: Reviewed. Head and Neck: Pupils are equal, reactive to light. Intact eye movements. No JVD. No cervical lym phadenopathy. Neck is supple. Thyroid is not enlarged. Lungs: Clear to auscultation bilaterally. No rhonchi, wheezing, or crackles. No accessory muscle u se. Heart: Regular rate and rhythm. No extra sounds. Abdomen: Soft, nontender. Bowel sounds positive. No rigidity or rebound. Extremities: No edema, clubbing, or cyanosis. Intact pulses. Skin: No rash. No nodules. Neurologic: Alert, awake, and oriented x3. No acute focal deficits appreciated. Investigations: BUN 7, creatinine 0.62. Cardiac enzymes are negative x3 and hemoglobin 11.4. Assessment And Recommendations: 1. Chest pain, known history of coronary artery disease. Cardiac enzymes are normal. There is no fu rther chest pain now. However, the features of chest pain is suggestive of ischemia. Patient wants to go home. She is pain-free now. So please send her home on aspirin, Plavix, high-dose statin, and to follow up with me in the office on Saturday and we will plan for cardiac PET stress test early nex t week. 2. Dyslipidemia. Continue rosuvastatin 40 mg q.h.s., discontinue atorvastatin. 3. Hypertension. Blood pressure is controlled. Continue current therapy. 4. Smoker. She was counseled in detail. I had a long discussion with her about lifestyle modification. Recommended a cardiac PET stress test early next week. SR/MODL Voice ID: [id number] Report ID: [id number]
--- NOTE | 2024-12-01 12:27 | EKG ---
Test Date: 2024-11-28 Test Time: 16:31:22 [employer]: TD MEASUREMENT RESULTS: Intervals: Rate: 114 WY: 144 QRSD: 76 QT: 324 QTc: 446 Vernal: P: 37 WY: 144 QRS: 4 T: 19 INTERPRETIVE STATEMENTS: Sinus tachycardia Biatrial enlargement Indeterminate axis Inferior infarct, age undetermined Anterior infarct, age undetermined Abnormal ECG Compared to ECG 10/09/2024 22:02:44 Indeterminate axis now present Myocardial infarct finding still present Electronically Signed On 12-01-24 12:21:03 CDT by James Patel
== END 2024-11-29 17:00 | disposition left against medical advice (07) ==
LOC: ER 15:59 → ERHOLD 20:39 → 4TH 21:12
PROVIDERS: ADMIT Internal Medicine; ATTEND Hospitalist
DX: R07.9 Chest pain, unspecified (principal); I25.10 Atherosclerotic heart disease of native coronary artery without angina pectoris; E78.5 Hyperlipidemia, unspecified; I10 Essential (primary) hypertension; E66.01 Morbid (severe) obesity due to excess calories; F19.90 Other psychoactive substance use, unspecified, uncomplicated; I25.2 Old myocardial infarction; F41.9 Anxiety disorder, unspecified; F32.A Depression, unspecified; F17.290 Nicotine dependence, other tobacco product, uncomplicated; Z71.6 Tobacco abuse counseling; Z68.41 Body mass index [BMI] 40.0-44.9, adult
CPT/HCPCS: 96361; 93005; 85025 ×2; 80048 ×2; 36415; 83735; 85610; 82947 ×4; 80076; 81003; 83036; 84484 ×4; 83690; 83880; 80307; 71045; 96375; 96372; 96374; 99285; J1650 ×2; J0360; J2270 ×5; J2405; J7030; G0378 ×3

== ENCOUNTER 2024-12-01 17:59 | Emergency (ER) | payer OTHER ==
--- OUTSIDE RECORDS SUMMARY | 2024-12-01 18:24 | XMS REPORT | Continuity of Care Document ---
Author Name Unknown Address [address] [facility] [address] [place] [address] [facility] Address [address] [facility] [address] [place] [address] Support Name Relationship Address Phone RACHEL CASH Father Unknown Unavailable MD TAVARES MG JR, JR. A Emergency Provider [address] [place] [address] JAN COX natural parent [address] [address] PIYUSH JUAREZ natural parent [address] [place] [address] CHARITY ROCA Guarantor [address] [place] [address] PHYSICIAN, NO Primary Care Physician Unknown Unav ailable MD MORA POLLOCK Emergency Provider [address] [place] [address] MD SHERIDAN MCMANUS Emergency Provider [facility], [place] [address] MD RIDDHI [place] [address] MD AN IRIZARRY Emergency Provider [facility], [place] [address] MD AIDEN SOLANO A Primary Care Physician [address] [facility] [address] [place] [address] OTHER, ENTER NAME IN NOTES Primary Care Physician Unknown Unavailable MD Arelis Kern Emergency Provider [address] [place] [address] MD SHAN BUSCH Attending Provider [address] [place] [address] Leyda Villa Mother Unknown Unavailable Rachel Cox Father [address] [place] [address] one else per patient, No Emergency Contact Unknown Unavailable Rachel Cox Father [address] [place] [address] 1 Personal Relationship Unknown Unavai lable Unavailable Personal Relationship Unknown Unavai lable Rachel Cox Father [address] [place] [address] PATIENT, NO ONE ELSE PER Personal Relationship Unknown Unavailable Care Team Providers Care Caretaker Grounds Name Role Phone OTHER, ENTER NAME IN NOTES Primary Care Physicia n Unavailable CHRISTINA PAGE Attending Clinician Unavailable CYNTHIA ROMEO Attending Clinician Unavailable NEO ALBARRAN Attending Clinician RIDDHI Chavez Attending Clinician Unavailable CATHY STRICKLAND Attending Clinician Unavailable Piper Mercedes LVN Attending Clinician [phone] ALEXX KWOK Attending Clinician UnavailTYLER Garcia Attending Clinician Unavailable NEIL SHULTZ Attending Clinician Unavailable BUSHRA RIOS Attending Clinician Unavailab BUSHRA Bustamante Attending Clinician Unavailab Bushra Bustamante DO Attending Clinician [phone] BOB GARCIA Attending Clinician Unavailable BOB GARCIA Attending Clinician Unavailable Bob Garcia MD Attending Clinician [phone] KAUR SANDRA Attending Clinician Unavailab KAUR Kessler Attending Clinician Unavailab Zay Shipman MD Attending Clinician [phone] Kaur Sandra MD Attending Clinician [phone] Elliott Kwok MD Attending Clinician +[phone] Dane Jurado MD Attending Clinician [phone] FLORINDA REYES Attending Clinician Unavailable JUANJOSE BARKER Attending Clinician Unavailable JUANJOSE BARKER Attending Clinician Unavailable Juanjose Barker MD Attending Clinician +[phone] GISELLE OSORIO Attending Clinician Unavailable MD BEHZAD Attending Clinician Unavailab CONRADO Pendleton Attending Clinician Unavailable JÚNIOR FARRELL Attending Clinician Unavailable Saleem EDWARD Attending Clinician Unavailable Saleem EDWARD Attending Clinician Unavailable Wagner PACSaleem Attending Clinician [phone] RADIOLOGY, DEPT Attending Clinician Unavailable SANDY GARCIA Attending Clinician Unavailable SANDY GARCIA Attending Clinician Unavailable Sandy Walker Attending Clinician + [phone] RAFAL WRIGHT Attending Clinician Unavailable Rafal Wright PA-C Attending Clinician [phone] Attending Clinician Unavailable Tammy Roy MD Attending Clinician + ARELIS KERN Attending Clinician Unavailab FARTUN Bernal Attending Clinician Unavailable TAVARES MG JR Attending Clinician UnaJacque Lazo NP Attending Clinician [phone] COSMO Attending Clinician Unavailable SHERIDAN MCMANUS Attending Clinician UnavailROBERTO Melgar Attending Clinician Unavailable Roberto Richards MD Attending Clinician +[phone] SHAN BUSCH Attending Clinician Unavailable RIDDHI MYLES Attending Clinician UnavailAN Garcia Attending Clinician Unavailable KLAUDIA NARVAEZ Attending Clinician Unavailable Klaudia Narvaez DO Attending Clinician +[phone] APPLE PADGETT S Attending Clinician Unavailable Dayron PAC, Apple S Attending Clinician [phone] ZAY MONTERO Attending Clinician Unavailable Leeanne Wise NP Attending Clinician + [phone] Zay Montero MD Attending Clinician +[phone] FELTON Attending Clinician Unavailable MELIDA LONGORIA Attending Clinician Unavailable Melida Longoria MD Attending Clinician +[phone] MCQUEEN, WIL R Attending Clinician Unavailable Sarahi KEARNSCHICHOAzucenan R Attending Clinician +[phone] APPLE WANG Attending Clinician Unavaila ble Juan Jbailee DRUG ROOM OPERATOR, Rosapaulette F Attending Clinician [phone] Doctor Unassigned, [place] Attending Clinician U feroz CEM CHOI Attending Clinician Unavailable Cem Choi MD Attending Clinician [phone] Shelley Rosas RN Attending Clinician +[phone] Hassan DRUG ROOM OPERATOR, Bal Attending Clinician + [phone] BAL HASSAN Attending Clinician Unavailable Ebrahim DRUG ROOM OPERATOR, Tremaine Attending Clinician [phone] EBTREMAINE PALOMINO Attending Clinician Unavailable LEEANNE WISE Attending Clinician Unavailable MORA POLLOCK Attending Clinician Unavailable Claudia DRUG ROOM OPERATOR, Katfiordaliza Odonnell Attending Clinician [phone] BEST TAYLOR Attending Clinician Unavailable Marbella Rizo RN Attending Clinician Unavailab bailee Robertson DRUG ROOM OPERATOR, Abdias Attending Clinician +[phone] ABDIAS ROBERTSON Attending Clinician Unavailable Kamryn Sheppard [...] Clinician Unavailable Elliott Kwok MD Admitting Clinician [phone] JUANJOSE BARKER Admitting Clinician Unavailable Saleem EDWARD Admitting Clinician Unavailable SANDY GARCIA Admitting Clinician Unavailable RAFAL WRIGHT Admitting Clinician Unavailable BOB GARCIA Admitting Clinician Unavailable ROBERTO RICHARDS Admitting Clinician Unavailable SHAN BUSCH Admitting Clinician Unavailable RIDDHI MYLES Admitting Clinician UnaKLAUDIA Suárez Admitting Clinician Unavailable ZAY MONTERO Admitting Clinician Unavailable Zay Montero MD Admitting Clinician [phone] FELTON Admitting Clinician Unavailable MELIDA LONGORIA Admitting Clinician Unavailable WIL MCQUEEN Admitting Clinician Unavailable APPLE WANG Admitting Clinician Unavaila CEM Gomez Admitting Clinician Unavailable TREMAINE BECERRA Admitting Clinician Unavailable LEEANNE WISE Admitting Clinician Unavailable Saleem EDWARD Admitting Clinician Unavailable BEST TAYLOR Admitting Clinician Unavailable ABDIAS ROBERTSON Admitting Clinician Unavailable Payers Payer Name Policy Type Policy Number Effective Date Expirati on Date Source HERMAN [facility] 94 [id number] 2024 00:00:00 RAMSES W/ KELLEE BRITTON [id number] 2023 00:00:00 [facility] BCBS BLUE ADVANTAGE HMO [id number] 2020 00:00:00 Problems Condition Name Condition Details Condition Category Status Onset Date Resolution Date Last Treatment Date Treating Clinician Comments Source Coronary artery disease involving [place] coronary artery of [place] heart with angina pectoris Coronary artery disease involving [place] coronary artery of [place] heart with angina pectoris Disease Active 11-01 00:00: 00 [facility] Dyslipidem ia Dyslipidem ia Disease Active 11-01 00:00: 00 [facility] Generalize d abdominal pain Generalize d abdominal pain Disease Active 2023-07 0 00:00: 00 [facility] Coronary artery disease Coronary artery [...] level Disease Active 2020-07 0- 00:00: 00 [facility] Cigarette smoker Cigarette smoker Disease Active 2020-07 0- 00:00: 00 [facility] Family history of early CAD Family history of early CAD Disease Active 2020-07 0- 00:00: 00 [facility] Essential hypertensi on Essential hypertensi on Disease Active 2020-07 0-02 00:00: 00 [facility] Elevated brain natriureti c peptide (BNP) level Elevated brain natriureti c peptide (BNP) level Disease Active 2020-07 0-02 00:00: 00 [facility] Snores Snores Disease Active 2020-07 0-02 00:00: 00 [facility] Morbid obesity with body mass index of 40.0-49.9 Morbid obesity with body mass index of 40.0-49.9 Disease Active 2020-07 0- 00:00: 00 [facility] Abdominal pain [facility] Acute coronary syndrome without high troponin [facility] Adrenal mass [facility] Adrenal nodule Problem [facility] Encounter for counseling regarding advance directives Problem [facility] Allergic rhinitis [facility] Angina pectoris Problem [facility] Anxiety and depression Problem [facility] Chest pain [facility] Gastroente ritis Problem [facility] Malaise Problem [facility] Otitis externa of left ear Problem [facility] Cyst of ovary Problem [facility] Post traumatic stress disorder (PTSD) [facility] Tobacco abuse Problem [facility] Urinary tract infection Problem [facility] No known active problems No known active problems Disease [facility] Allergies, Adverse Reactions, Alerts Allergy Name Allergy Type Status Severity Reaction(s) Onset Date Inactive Date Treating Clinician Comments Source NO KNOWN ALLERGIE S Drug Class Active [facility] Social History Social Habit Start Date Stop Date Quantity Comments Source Gender identity [facility] ASSERTION Possible [facility] History of Occupation [facility] Sexual orientation Saleem Buckley - External Tobacco use and exposure 2024-11-26 00:00:00 2024-11-26 00:00:00 Former smokeless tobacco user [facility] History of tobacco use 2024-11-12 00:00:00 Passive smoker [facility] Alcoholic beverage intake 2024-10-23 00:00:00 2024-10-23 00:00:00 [...] cigarettes/ day from 2 packs per day [facility] Exposure to SARS-CoV-2 (event) 2021-12-30 00:00:00 2022-01-09 16:34:00 Unable to assess [facility] Education 2021-04-07 00:00:00 2021-04-07 00:00:00 13 [facility] Sex assigned at 1980 00:00:00 1980 00:00:00 Kellee Davies Smoking Status Start Date Stop Date Source Ex-smoker 2024-11-26 00:00:00 2024-11-26 00:00:00 [facility] Smokes tobacco daily 2023-02-15 00:00:00 [facility] Unknown if ever smoked [facility] Medications Ordered Medication Name Filled Medication Name Start Date Stop Date Current Medication? Ordering Clinician Indication Dosage Frequency Signature (SIG) Comments Components Source rosuvastati n (CRESTOR) tablet 40 mg 11-28 02:00: 00 11-27 18:39 :12 No 40mg [facility] enoxaparin (LOVENOX) injection 40 mg 11-27 22:00: 00 11-27 18:39 :12 No 40mg 40 mg, Subcutaneo us, DAILY AT 1700, First dose on Sat11/27/24 at 1700, Until Discontinu ed, Routine [facility] KCL (KLOR-CON M20) tablet 40 mEq KCL (KLOR-CON M20) tablet 40 mEq 11-27 17:45: 00 11-27 17:08 :00 Yes 40meq 40 mEq, Oral, ONCE, 1 dose, On Sat11/27/24 at 1245, Routine [facility] magnesium oxide (MAG-OX 400) 400 mg (241.3 mg magnesium) tablet 400 mg magnesium oxide (MAG-OX 400) 400 mg (241.3 mg magnesium) tablet 400 mg 11-27 17:00: 00 11-27 18:39 :12 Yes 400mg 400 mg, Oral, DAILY, First dose on Sat11/27/24 at 1200, Until Discontinu ed, Routine [facility] lisinopriL (PRINIVIL,Z ESTRIL) tablet 40 mg lisinopriL (PRINIVIL,Z ESTRIL) tablet 40 mg 11-27 14:00: 00 11-27 18:39 :12 Yes 40mg 40 mg, Oral, DAILY, First dose on Sat11/27/24 at 0900, Until Discontinu ed [facility] isosorbide mononitrate (IMDUR) 24 hr tablet 60 mg isosorbide mononitrate (IMDUR) 24 hr tablet 60 mg 11-27 14:00: 00 11-27 18:39 :12 Yes 60mg 60 mg, Oral, DAILY, First dose on Sat11/27/24 at 0900, Until Discontinu ed, Routine [facility] clopidogreL (PLAVIX) 75 mg tablet 75 mg clopidogreL (PLAVIX) 75 mg tablet 75 mg 11-27 14:00: 00 11-27 18:39 :12 Yes 75mg 75 mg, Oral, DAILY, First dose on Sat11/27/24 at 0900, Until Discontinu ed, Routine, 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 Restricted medication : ALEXX KWOK [facility] aspirin chewable tablet 81 mg aspirin chewable tablet 81 mg 11-27 14:00: 00 11-27 18:39 :12 Yes 81mg 81 mg, Oral, DAILY, First dose on Sat11/27/24 at 0900, Until Discontinu ed, Routine [facility] ALPRAZolam 2 mg 24 hr tablet 11-27 13:39: 12 Yes 2mg Take 1 tablet by mouth in the morning and 1 tablet in the evening. [facility] methocarbam oL (ROBAXIN) tablet 500 mg methocarbam oL (ROBAXIN) tablet 500 mg 11-27 13:00: 00 11-27 18:39 :12 Yes 500mg 500 mg, Oral, QID, First dose on Sat11/27/24 at 0800, Until Discontinu ed, Routine [facility] metoprolol tartrate (LOPRESSOR) tablet 12.5 mg metoprolol tartrate (LOPRESSOR) tablet 12.5 mg 11-27 13:00: 00 11-27 18:39 :12 Yes 12.5mg 12.5 mg, Oral, BID, First dose on Sat11/27/24 at 0800, Until Discontinu ed, [facility] famotidine (PEPCID AC) tablet 20 mg famotidine (PEPCID AC) tablet 20 mg 11-27 13:00: 00 11-27 18:39 :12 Yes 20mg 20 mg, Oral, BID, First dose on Sat11/27/24 at 0800, Until Discontinu ed, Routine [facility] hydrOXYzine (ATARAX) tablet 50 mg 11-27 04:35: 56 11-27 18:39 :12 No 50mg [facility] ALPRAZolam (XANAX) tablet 1 mg 11-27 04:35: 16 11-27 18:39 :12 No 1mg [facility] NaCl 0.9% (NS) IV infusion 1,000 mL 11-27 03:00: 00 11-27 18:39 :12 No 1000mL at 50 mL/hr, IV Infusion, CONTINUOUS , Starting on Sat11/26/24 at 2200, Until Sat11/27/24 at 1339, Routine [facility] ondansetron (ZOFRAN (PF)) injection 4 mg 11-27 02:49: 22 11-27 18:39 :12 No 4mg 4 mg, Slow IV Push, Q6HPRN, Starting on Sat11/26/24 at 2149, Until Sat11/27/24 at 1339, Administer over 2-5 Minutes, 2 mL [facility] morpHINE (4 mg/mL) injection 4 mg morpHINE (4 mg/mL) injection 4 mg 11-27 02:49: 19 11-27 17:19 :29 Yes 4mg 4 mg, Slow IV Push, Q6HPRN, Starting on Sat11/26/24 at 2149, Until Sat11/27/24 at 1219, Routine, Pain (scale 7-10) [facility] HYDROcodone -acetaminop hen (NORCO 5) tablet 1 tablet HYDROcodone -acetaminop hen (NORCO 5) tablet 1 tablet 11-27 02:49: 09 11-27 17:19 :29 Yes 1{tbl} 1 tablet, Oral, Q6HPRN, Starting on Sat11/26/24 at 2149, Until Sat11/27/24 at 1219, Routine, Pain (scale 4-6) [facility] acetaminoph en (TYLENOL) tablet 650 mg 11-27 02:49: 07 11-27 18:39 :12 No 650mg 650 mg, Oral, Q6HPRN, Starting on Sat11/26/24 at 2149, Until Sat11/27/24 at 1339, Routine, Pain (scale 1-3) [facility] HYDROcodone -acetaminop hen (NORCO) 10-325 mg tablet 1 tablet 11-27 02:30: 00 11-27 02:47 :00 No 1{tbl} 1 tablet, Oral, ONCE NOW, 1 dose, On Sat11/26/24 at 2130, Routine [facility] nitroglycer in (NITROL) 2 % ointment 1 Inch nitroglycer in (NITROL) 2 % ointment 1 Inch 11-27 02:15: 00 11-27 04:13 :00 Yes 1[in_us ] 1 Inch, Transderma l (Apply To Skin), ONCE NOW, 1 dose, On Sat11/26/24 at 2115, Routine [facility] haloperidoL (HALDOL) tablet 2 mg 11-27 01:30: 00 11-27 18:39 :12 No 2mg 2 mg, Oral, QHS, First dose on Sat11/26/24 at 2030, Until Discontinu ed, Routine [facility] ondansetron (ZOFRAN (PF)) injection 4 mg 11-27 01:00: 00 11-27 00:06 :00 No 4mg 4 mg, Slow IV Push, ONCE, 1 dose, On [place] 11/26/24 at 2000, 2 mL [facility] morpHINE (4 mg/mL) injection 4 mg 11-27 01:00: 00 11-27 00:07 :00 No 4mg 4 mg, Slow IV Push, ONCE, 1 dose, On [place] 11/26/24 at 2000, STAT [facility] NaCl 0.9% (NS) bolus infusion 500 mL 11-27 00:15: 00 11-27 01:22 :00 No 500mL at 999 mL/hr, 500 mL, IV Infusion, ONCE, 1 dose, On [place] 11/26/24 at 1915, STAT [facility] ibuprofen (IBU) tablet 600 mg 11-15 02:30: 00 11-15 02:21 :00 No 600mg 600 mg, Oral, ONCE, 1 dose, On 11/14/24 at 2130, ROSELYN [facility] Ciprofloxac in HCl (Cipro) 500 MG oral Tablet 11-15 00:00: 00 11-23 04:59 :00 Yes [id number] 500mg Q.5D Take 1 tablet (500 mg total) by mouth 2 times daily for 7 days. Kellee Buckley - Externa l KCL (KLOR-CON M20) tablet 40 mEq 11-11 06:15: 00 11-11 05:28 :00 No 40meq 40 mEq, Oral, ONCE, 1 dose, On Sat11/11/24 at 0115, Routine [facility] iopamidol (ISOVUE 370-500 mL) injection 80 mL 11-11 05:00: 00 11-11 05:00 :00 No [id number] 80mL 80 mL, Intravenou s, ONCE, 1 dose, On Sat11/11/24 at 0000, Routine [facility] morpHINE (4 mg/mL) injection 4 mg 11-11 04:30: 00 11-11 04:29 :00 No 4mg 4 mg, Slow IV Push, ONCE, 1 dose, On Sat11/10/24 at 2330, STAT [facility] ondansetron (ZOFRAN (PF)) injection 4 mg 11-11 02:00: 00 11-11 02:32 :00 No 4mg 4 mg, Slow IV Push, ONCE, 1 dose, On Sat11/10/24 at 2100, Administer over 2-5 Minutes, 2 mL [facility] morpHINE (4 mg/mL) injection 4 mg 11-11 02:00: 00 11-11 02:29 :00 No 4mg 4 mg, Slow IV Push, ONCE, 1 dose, On Sat11/10/24 at 2100, STAT [facility] lisinopriL 40 mg tablet 11-05 00:00: 00 Yes [id number] 40mg Take 1 tablet by mouth in the morning. [facility] Lidocaine (LIDOCARE) 4 % patch 1 Patch Lidocaine (LIDOCARE) 4 % patch 1 Patch 11-04 17:45: 00 11-04 20:24 :12 Yes 1{patch } 1 Patch, Topical, Administer over 12 Hours, ONCE, 1 dose, On Sat11/04/24 at 1245, Routine [facility] magnesium sulfate in water 4 gram/50 mL (8 %) IV Piggyback 4 g magnesium sulfate in water 4 gram/50 mL (8 %) IV Piggyback 4 g 11-04 16:00: 00 11-04 19:04 :00 Yes 4g 4 g, IV Piggyback, at 25 mL/hr Administer over 120 Minutes, ONCE, 1 dose, On Sat11/04/24 at 1100, Routine [facility] clopidogreL 75 mg tablet 11-04 15:24: 11 Yes 75mg Take 1 tablet by mouth in the morning. [facility] aspirin 81 mg EC tablet 11-04 15:24: 11 Yes 81mg Take 1 tablet by mouth in the morning. [facility] isosorbide mononitrate 60 mg 24 hr tablet 11-04 15:24: 11 Yes 60mg Take 1 tablet by mouth in the morning. [facility] hydrOXYzine 50 mg tablet 11-04 15:24: 11 Yes 50mg Take 1 tablet by mouth every 12 hours as needed for Anxiety. [facility] haloperidoL 2 mg tablet 11-04 15:24: 11 Yes 2mg Take 1 tablet by mouth at bedtime. [facility] rosuvastati n 20 mg tablet 11-04 15:24: 10 11-04 00:00 :00 No 20mg Take 1 tablet by mouth at bedtime. [facility] rosuvastati n 40 mg tablet 11-04 00:00: 00 Yes [id number] 40mg Take 1 tablet by mouth at bedtime. [facility] metoprolol tartrate 25 mg tablet 11-04 00:00: 00 Yes [id number] 12.5mg Take 0.5 tablets by mouth in the morning and 0.5 tablets in the evening. [facility] aminophylli ne 50 mg in NaCl 0.9% (NS) 2 mL piggyback 11-03 19:44: 46 11-03 20:03 :14 No ONCE INTRA PROCEDURE, Starting on Sat11/03/24 at 1444, Until Sat11/03/24 at 1503, CV Intraproce dure [facility] adenosine diagnostic (ADENOSCAN) injection 11-03 19:10: 54 11-03 20:03 :14 No CONTINUOUS PRN, Starting on Sat11/03/24 at 1410, Until Sat11/03/24 at 1503, Routine, CV Intraproce dure [facility] heparin 1,000 unit/mL injection 11-03 18:45: 11 11-03 20:03 :14 No ONCE INTRA PROCEDURE, Starting on Sat11/03/24 at 1345, Until Sat11/03/24 at 1503, Routine, CV Intraproce dure [facility] nitroglycer in (TRIDIL) 2 mg in 10 mL D5W for Cardiac Cath 11-03 18:29: 27 11-03 20:03 :14 No ONCE INTRA PROCEDURE, Starting on Sat11/03/24 at 1329, Until Sat11/03/24 at 1503, Routine, CV Intraproce dure [facility] lidocaine 1% (PF) (XYLOCAINE) injection 11-03 18:13: 12 11-03 20:03 :14 No ONCE INTRA PROCEDURE, Starting on Sat11/03/24 at 1313, Until Sat11/03/24 at 1503, Routine, CV Intraproce dure [facility] midazolam (VERSED) 1 mg/mL injection 11-03 18:12: 08 11-03 20:03 :14 No ONCE INTRA PROCEDURE, Starting on Sat11/03/24 at 1312, Until Sat11/03/24 at 1503, Routine, CV Intraproce dure [facility] FENTanyl (PF) (SUBLIMAZE) injection 11-03 18:11: 52 11-03 20:03 :14 No ONCE INTRA PROCEDURE, Starting on Sat11/03/24 at 1311, Until Sat11/03/24 at 1503, Routine, CV Intraproce dure [facility] metoprolol tartrate (LOPRESSOR) tablet 12.5 mg metoprolol tartrate (LOPRESSOR) tablet 12.5 mg 11-03 13:00: 00 11-04 22:34 :20 Yes 12.5mg 12.5 mg, Oral, BID, First dose on Sat11/03/24 at 0800, Until Discontinu ed, Routine [facility] famotidine (PEPCID AC) tablet 20 mg famotidine (PEPCID AC) tablet 20 mg 11-02 14:00: 00 11-04 20:24 :12 Yes 20mg 20 mg, Oral, DAILY, First dose (after last modificati on) on Sat11/02/24 at 0900, Until Discontinu ed, Routine [facility] rosuvastati n (CRESTOR) tablet 40 mg rosuvastati n (CRESTOR) tablet 40 mg 11-02 02:00: 00 11-04 22:34 :20 Yes 40mg 40 mg, Oral, QHS, First dose (after last modificati on) on Sat11/01/24 at 2100, Until Discontinu ed, Routine [facility] haloperidoL (HALDOL) tablet 2 mg haloperidoL (HALDOL) tablet 2 mg 11-02 02:00: 00 11-04 20:24 :11 Yes 2mg 2 mg, Oral, QHS, First dose on Sat11/01/24 at 2100, Until Discontinu ed, [facility] morpHINE [facility] 2 mg morpHINE injection 2 mg 11-02 00:15: 06 11-04 16:59 :14 Yes 2mg 2 mg, Slow IV Push, Q4HPRN, Starting on Sat11/01/24 at 1915, Until Sat11/04/24 at 1159, Routine, Chest pain, Pain (scale 7-10) [facility] HYDROcodone -acetaminop hen (NORCO 5) tablet 1 tablet HYDROcodone -acetaminop hen (NORCO 5) tablet 1 tablet 11-02 00:14: 58 11-04 16:59 :14 Yes 1{tbl} 1 tablet, Oral, Q6HPRN, Starting on Sat11/01/24 at 1914, Until Sat11/04/24 at 1159, Routine, Pain (scale 4-6) [facility] morpHINE injection 4 mg morpHINE injection 4 mg 11-01 23:25: 45 11-01 23:34 :04 Yes 4mg 4 mg, Slow IV Push, Q4HPRN, Starting on Sat11/01/24 at 1825, Until Sat11/01/24 at 1834, Routine, Chest pain [facility] acetaminoph en (TYLENOL) tablet 650 mg 11-01 23:14: 29 11-04 20:24 :12 No 650mg [facility] morpHINE (4 mg/mL) injection 4 mg morpHINE (4 mg/mL) injection 4 mg 11-01 17:39: 53 11-01 23:25 :45 Yes 4mg 4 mg, Slow IV Push, Q4HPRN, Starting on Sat11/01/24 at 1239, Until Sat11/01/24 at 1825, Routine, Chest pain [facility] nitroglycer in (NITROSTAT) sublingual tablet 0.4 mg nitroglycer in (NITROSTAT) sublingual tablet 0.4 mg 11-01 17:35: 41 11-04 20:24 :12 Yes .4mg 0.4 mg, Sublingual , Q5MIN PRN, Starting on Sat11/01/24 at 1235, Until Sat11/04/24 at 1524, Routine, Chest pain [facility] heparin 25,000 Units/250 mL (Premixed Bag) in [...] therapy. Range, Dosing and Testing: FOR [place], [facility], AND [facility] ONLY - aPTT < 35: [...] ADJUST INITIAL BOLUS OR INITIAL INFUSION RATE. [facility] HEPARIN SODIUM (PORCINE) 1,000 UNIT/ML BOLUS ACS ORDER SET [id number] 4-27 17:30: 00 11-01 19:27 :00 Yes 4000U 4,000 Units, IV Push, ONCE, 1 dose, On Sat11/01/24 at 1230, [facility] heparin (1,000 unit/mL, 10 mL vial) for Rebolusing [id number] 4-27 17:27: 37 11-04 20:24 :12 Yes 3000U FOR REBOLUSING , Starting on Sat11/01/24 at 1227, Until Sat11/04/24 at 1524, Routine, Dosing based on aPTT testing parameters (refer to continuous heparin drip order). [facility] lisinopriL (PRINIVIL,Z ESTRIL) tablet 40 mg lisinopriL (PRINIVIL,Z ESTRIL) tablet 40 mg 11-01 14:00: 00 11-04 22:34 :20 Yes 40mg 40 mg, Oral, DAILY, First dose on 11/01/24 at 0900, Until Discontinu ed, Routine [facility] isosorbide mononitrate (IMDUR) 24 hr tablet 60 mg isosorbide mononitrate (IMDUR) 24 hr tablet 60 mg 11-01 14:00: 00 11-04 20:24 :11 Yes 60mg 60 mg, Oral, DAILY, First dose on 11/01/24 at 0900, Until Discontinu ed, Routine [facility] aspirin EC tablet 81 mg aspirin EC tablet 81 mg 11-01 14:00: 00 11-04 20:24 :11 Yes 81mg 81 mg, Oral, DAILY, First dose on 11/01/24 at 0900, Until Discontinu ed, Routine [facility] clopidogreL (PLAVIX) 75 mg tablet 75 mg clopidogreL (PLAVIX) 75 mg tablet 75 mg 11-01 14:00: 00 11-04 20:24 :11 Yes 75mg 75 mg, Oral, DAILY, First dose on Sat11/01/24 at 0900, Until Discontinu ed, Routine [facility] enoxaparin (LOVENOX) injection 40 mg enoxaparin (LOVENOX) injection 40 mg 11-01 14:00: 00 11-01 17:27 :16 Yes 40mg 40 mg, Subcutaneo us, DAILY, First dose on 11/01/24 at 0900, Until Discontinu ed, [facility] perfl[facility] protein-A microsphr (OPTISON) injection 3 mL 11-01 13:45: 00 11-01 13:45 :00 No [id number] 3mL 3 mL, IV Push, ONCE, 1 dose, On 11/01/24 at 0845, Routine [facility] famotidine (PEPCID AC) tablet 20 mg famotidine (PEPCID AC) tablet 20 mg 11-01 13:00: 00 11-02 00:40 :46 Yes 20mg 20 mg, Oral, BID, First dose on Sat11/01/24 at 0800, Until Discontinu ed, Routine [facility] morphine (2 mg/mL) injection 2 mg morphine (2 mg/mL) injection 2 mg 11-01 10:00: 00 11-01 09:28 :00 Yes 2mg 2 mg, Slow IV Push, ONCE, 1 dose, On Sat11/01/24 at 0500, Routine [facility] NaCl 0.9% (NS) IV infusion 1,000 mL 11-01 09:30: 00 11-02 16:23 :00 No 1000mL at 75 mL/hr, IV Infusion, ONCE, 1 dose, On Sat11/01/24 at 0430, Routine [facility] ALPRAZolam (XANAX) tablet 1 mg [id number] 4-27 06:46: 25 11-01 23:35 :16 Yes 1mg 1 mg, Oral, BIDPRN, Starting on Sat11/01/24 at 0146, Until Sat11/01/24 at 1835, Routine, Anxiety [facility] methocarbam oL (ROBAXIN) tablet 500 mg methocarbam oL (ROBAXIN) tablet 500 mg 11-01 06:45: 47 11-04 20:24 :11 Yes 500mg 500 mg, Oral, Q6HPRN, Starting on Sat11/01/24 at 0145, Until Sat11/04/24 at 1524, Routine, Muscle Spasms [facility] ketorolac (TORADOL) injection 15 mg ketorolac (TORADOL) injection 15 mg 11-01 04:50: 40 11-01 23:34 :04 Yes 15mg 15 mg, Slow IV Push, Q6HPRN, Starting on 10/31/24 at 2350, Until 11/01/24 at 1834, Routine, Pain (scale 7-10) [facility] ondansetron (ZOFRAN (PF)) injection 4 mg ondansetron (ZOFRAN (PF)) injection 4 mg 11-01 04:50: 11 11-04 20:24 :11 Yes 4mg 4 mg, Slow IV Push, Q6HPRN, Starting on 10/31/24 at 2350, Until 11/04/24 at 1524, Administer over 2-5 Minutes, 2 mL [facility] morpHINE (4 mg/mL) injection 4 mg 11-01 04:15: 00 11-01 04:06 :00 No 4mg 4 mg, Slow IV Push, ONCE, 1 dose, On 10/31/24 at 2315, STAT [facility] maalox/diph enhydrAMINE :lidocaine2 %viscous 1:1:1: suspension (COMPOUNDED ) 11-01 04:15: 00 11-01 04:06 :00 No 15mL 15 mL, Oral, ONCE, 1 dose, On 10/31/24 at 2315, Routine [facility] morpHINE (4 mg/mL) injection 4 mg 11-01 03:15: 00 11-01 03:10 :00 No 4mg 4 mg, Slow IV Push, ONCE, 1 dose, On 10/31/24 at 2215, STAT [facility] ondansetron (ZOFRAN (PF)) injection 4 mg 11-01 03:15: 00 11-01 03:12 :00 No 4mg 4 mg, Slow IV Push, ONCE, 1 dose, On 10/31/24 at 2215, Administer over 2-5 Minutes, 2 mL [facility] nitroglycer in (NITROSTAT) sublingual tablet 0.4 mg 11-01 03:15: 00 11-01 02:58 :00 No .4mg 0.4 mg, Sublingual , ONCE, 1 dose, On 10/31/24 at 2215, RO[facility]N [facility] iopamidol (ISOVUE 370-500 mL) injection 100 mL 10-24 04:30: 00 10-24 04:30 :00 No [id number] 100mL 100 mL, Intravenou s, ONCE, 1 dose, On Sat10/23/24 at 2330, Routine [facility] cefTRIAXone (ROCEPHIN) 1,000 mg in water for injection, sterile 10 mL IV Push 10-24 03:00: 00 10-24 02:54 :00 No 1000mg 1,000 mg, Intravenou s, ONCE, 1 dose, On Sat10/23/24 at 2200, 10 mL, Reason for Anti-Infec tive: Empiric Therapy for Suspected Infection, Empiric Therapy Site: Urine, Duration of therapy: Once (ED) [facility] NaCl 0.9% (NS) bolus infusion 1,000 mL 10-24 01:30: 00 10-24 04:03 :00 No 1000mL at 999 mL/hr, 1,000 mL, IV Infusion, ONCE, 1 dose, On Sat10/23/24 at 2030, STAT [facility] ondansetron (ZOFRAN (PF)) injection 4 mg 10-24 01:30: 00 10-24 02:26 :00 No 4mg 4 mg, Slow IV Push, ONCE, 1 dose, On Sat10/23/24 at 2030, Administer over 2-5 Minutes, 2 mL [facility] morpHINE (4 mg/mL) injection 6 mg 10-24 01:30: 00 10-24 02:22 :00 No 6mg 6 mg, Slow IV Push, ONCE, 1 dose, On Sat10/23/24 at 2030, STAT [facility] hydrOXYzine Pamoate 50 MG oral Capsule 10-23 10:46: 10 10-23 00:00 :00 No [id number] 50mg Q.5D Take 1 capsule (50 mg total) by mouth as needed in the morning and 1 capsule (50 mg total) as needed in the evening for anxiety. Kellee pinedo Sertraline HCl 200 MG oral Capsule 10-23 10:16: 17 Yes 1{capsu le} QD Take 1 capsule by mouth daily. Kellee pinedo famotidine (PEPCID) 20 mg tablet 18 00:00: 00 Yes [id number] 20mg Take 1 tablet by mouth in the morning and 1 tablet in the evening. [facility] hydrOXYzine Pamoate 50 MG oral Capsule 18 00:00: 00 Yes [id number] 50mg Q.5D Take 1 capsule (50 mg total) by mouth as needed in the morning and 1 capsule (50 mg total) as needed in the evening for anxiety. Kellee pinedo Eszopiclone 2 MG oral Tablet 10-23 00:00: 00 Yes [id number] 2mg QD Take 1 tablet (2 mg total) by mouth nightly Take immediatel y before bedtime. Kellee pinedo Ascorbic Acid (Vitamin C) 250 MG oral Tablet 10-23 00:00: 00 Yes [id number] 250mg QD Take 1 tablet (250 mg total) by mouth daily. Kellee pinedo cefdinir 300 mg capsule 10-23 00:00: 00 11-04 00:00 :00 No [id number] 300mg Take 1 capsule by mouth in the morning and 1 capsule in the evening. Do all this for 8 days. [facility] ondansetron 4 mg disintegrat ing tablet 10-23 00:00: 00 11-01 00:00 :00 No [id number] 4mg Take 1 tablet by mouth every 12 (twelve) hours as needed for Nausea and Vomiting (N/V). [facility] HYDROcodone -acetaminop hen 5-325 mg tablet 18 00:00: 00 10-31 04:59 :00 Yes [id number] 1{tbl} Take 1 tablet by mouth every 6 (six) hours as needed for Pain (scale 7-10) for up to 7 days. Indication s: acute pain [facility] Methocarbam ol 750 MG oral Tablet 15 00:00: 00 Yes [id number] 750mg QD Take 1 tablet (750 mg total) by mouth daily. Kellee pinedo Belsomra 20 MG oral Tablet 15 00:00: 00 10-23 00:00 :00 No [id number] 1{tbl} QD TAKE 1 TABLET BY MOUTH EVERY DAY AT NIGHT Kellee pinedo Ketorolac Tromethamin e 10 MG oral Tablet 10 00:00: 00 Yes Kellee pinedo morphine (2 mg/mL) injection 2 mg 08 07:30: 00 10-13 07:35 :00 No 2mg 2 mg, Slow IV Push, ONCE, 1 dose, On Sat10/13/24 at 0230, Routine [facility] ondansetron (ZOFRAN (PF)) injection 4 mg 08 05:15: 00 10-13 05:20 :00 No 4mg 4 mg, Slow IV Push, ONCE, 1 dose, On Sat10/13/24 at 0015, Administer over 2-5 Minutes, 2 mL [facility] morphine (2 mg/mL) injection 2 mg 10-13 05:15: 00 10-13 05:18 :00 No 2mg 2 mg, Slow IV Push, ONCE, 1 dose, On Sat10/13/24 at 0015, Routine [facility] aspirin chewable tablet 243 mg 08 04:00: 00 10-13 04:13 :00 No 243mg 243 mg, Oral, Once, 1 dose, On Sat10/12/24 at 2300, Routine [facility] nitroglycer in (NITROSTAT) sublingual tablet 0.4 mg 08 03:55: 07 Yes .4mg 0.4 mg, Sublingual , Q5MIN PRN, 3 doses, Starting on Sat10/12/24 at 2255, Until Discontinu ed, ROSELYN, Chest pain [facility] Haloperidol 1 MG oral Tablet 10-09 [...] MG oral Tablet 09-07 00:00: 00 Yes [id number] 750mg Q.25D TAKE 1 TABLET (750 MG TOTAL) BY MOUTH 4 TIMES DAILY. Kellee pinedo Belsomra 20 MG oral Tablet 09-07 00:00: 00 Yes [id number] 1{tbl} QD TAKE 1 TABLET BY MOUTH EVERY DAY AT NIGHT Kellee pinedo Aspirin Low Dose 81 MG oral Tablet Delayed Response 09-01 00:00: 00 Yes [id number] 81mg QD TAKE 1 TABLET BY MOUTH [...] Tablet Therapy Pack 08-05 00:00: 00 Yes [id number] 1{heena} Take 1 heena by mouth See Admin Instructio ns Use as directed. Kellee pinedo Guaifenesin (Mucinex) 600 MG oral Tablet 12 Hour Sustained Release 08-05 00:00: 00 Yes [id number] 1200mg Q.5D Take 2 tablets (1,200 mg total) by mouth 2 times daily. Kellee pinedo Albuterol HFA 108 (90 Base) MCG/ACT IN AERS 08-05 00:00: 00 10-23 00:00 :00 No [id number] 2{puff} Q.25D Inhale 2 puffs into the lungs every 6 hours as needed for wheezing or shortness of breath. Kellee pinedo Belsomra 20 MG oral Tablet 08-04 00:00: 00 Yes [id number] 1{tbl} QD TAKE 1 TABLET BY MOUTH EVERY DAY AT NIGHT Kellee pinedo Aspirin Low Dose 81 MG oral Tablet Delayed Response 08-04 00:00: 00 Yes [id number] 81mg QD TAKE 1 TABLET BY MOUTH [...] On 07/19/24 at 0200, Routine [facility] ipratropium -albuteroL (DUONEB) 0.5 mg-3 mg(2.5 mg base)/3 mL nebulizer solution 3 mL 07-19 08:00: 00 07-19 07:04 :00 No 3mL 3 mL, Inhalation , ONCE, 1 dose, On 07/19/24 at 0200, Routine [facility] azithromyci n (ZITHROMAX) tablet 500 mg 07-19 07:00: 00 07-19 07:05 :00 No 500mg 500 mg, Oral, ONCE, 1 dose, On 07/19/24 at 0100, ROSELYN, Reason for Anti-Infec tive: Documented Infection, Documented Infection Site: Respirator y, Duration of Therapy: Once (ED) [facility] iopamidol (ISOVUE 370-500 mL) injection 75 mL 07-19 06:45: 00 07-19 06:45 :00 No [id number] 75mL 75 mL, Intravenou s, ONCE, 1 dose, On 07/19/24 at 0045, Routine [facility] nitroglycer in (NITROL) 2 % ointment 0.5 Inch 07-19 06:00: 00 07-19 05:11 :00 No .5[in_u s] 0.5 Inch, Transderma l (Apply To Skin), ONCE, 1 dose, On 07/19/24 at 0000, RO[facility]N [facility] ketorolac (TORADOL) injection 15 mg 07-19 06:00: 00 07-19 05:09 :00 No 15mg 15 mg, Slow IV Push, ONCE, 1 dose, On 07/19/24 at 0000, RO[facility]LYN [facility] azithromyci n (ZITHROMAX Z-HEENA) 250 mg tablet 07-19 00:00: 00 11-01 00:00 :00 No [id number] 250mg Take 1 tablet by mouth SEE-INSTRU CTIONS. Take 500 mg day 1, then 250 mg days 2 to 5. [facility] predniSONE 20 mg tablet 07-19 00:00: 00 11-01 00:00 :00 No [id number] 1 PO BID x 4 days [facility] Sertraline HCl 50 MG oral Tablet 1- 00:00: 00 10-23 00:00 :00 No [id number] TAKE 1 TABLET BY MOUTH DAILY TAKE IN ADDITION TO 100 MG TABLET FOR A TOTAL DOSE OF 150 MG DAILY. Kellee Ariasnicolbeck Leiva Shobha lee Sertraline HCl 100 MG oral Tablet - 00:00: 00 10-23 00:00 :00 No [id number] TAKE 1 TABLET BY MOUTH EVERY MORNING TAKE IN ADDITION TO 50 MG TABLET FOR A TOTAL DOSE OF 150 MG DAILY. Kellee Ariasazra Yeager l iopamidol (ISOVUE 370-500 mL) injection 100 mL 2023-07 06:45: 00 07-04 06:45 :00 No [id number] 100mL 100 mL, Intravenou s, ONCE, 1 dose, On Sat07/04/24 at 0045, Routine [facility] morpHINE (4 mg/mL) injection 4 mg 2023-07 06:30: 00 07-04 06:29 :00 No 4mg 4 mg, Slow IV Push, ONCE, 1 dose, [facility]07[facility]04/24 at 0030[facility]METHaz[facility] (PHENERGAN) 12.5 mg in NS 50 mL IV piggyback (CNR) 2023-07 05:15: 00 07-04 05:30 :00 No 12.5mg 12.5 mg, IV Piggyback, at 200 mL/hr Administer over 15 Minutes, ONCE, 1 dose, On Sat07/03/24 at 2315, [facility] morpHINE (4 mg/mL) injection 4 mg 2023-07 03:30: 00 07-04 03:49 :00 No 4mg 4 mg, Slow IV Push, ONCE, 1 dose, On Sat07/03/24 at 2130, STAT [facility] ondansetron (ZOFRAN (PF)) injection 4 mg 2023-07 03:30: 00 07-04 03:50 :00 No 4mg 4 mg, Slow IV Push, ONCE, 1 dose, On Sat07/03/24 at 2130, Administer over 2-5 Minutes, 2 mL [facility] NaCl 0.9% (NS) IV infusion 1,000 mL 2023-07 03:18: 00 07-04 04:56 :00 No 1000mL at 999 mL/hr, Intravenou s, ONCE, 1 dose, On Sat07/03/24 at 2130, RO[facility]N [facility] sodium chloride (NS) injection 5 mL 2023-07 02:16: 03 Yes 5mL 5 mL, Intravenou s, PRN, Starting on Sat07/03/24 at 2016, Until Discontinu ed, Routine, IV line flushing [facility] benzonatate 100 mg capsule 2023-07 00:00: 00 Yes [id number] 100mg Take 1 capsule by mouth 3 (three) times daily as needed for Cough. [facility] proMETHazin e 25 mg tablet 2023-07 00:00: 00 11-01 00:00 :00 No [id number] 25mg Take 1 tablet by mouth every 6 (six) hours as needed for Nausea and Vomiting (N/V). [facility] dicyclomine 10 mg capsule 2023-07 00:00: 00 11-01 00:00 :00 No [id number] 10mg Take 1 capsule by mouth 3 (three) times daily as needed for Abdominal pain. [facility] Gabapentin 300 MG oral Capsule 2023-07 00:00: 00 Yes 1 cap po 30-60 min prior to MRI. Kellee pinedo cephALEXin (KEFLEX) capsule 500 mg 2023-07 08:45: 00 06-21 08:53 :00 No 500mg 500 mg, Oral, ONCE, 1 dose, On Sat06/21/24 at 0245, ROSELYN, Reason for Anti-Infec tive: Documented Infection, Documented Infection Site: Skin / Soft Tissue, Duration of Therapy: Once (ED) [facility] doxycycline hyclate (Vibramycin ) capsule 100 mg 2023-07 08:45: 00 06-21 08:53 :00 No 100mg 100 mg, Oral, ONCE, 1 dose, On Sat06/21/24 at 0245, ROSELYN, Reason for Anti-Infec tive: Documented Infection, Documented Infection Site: Skin / Soft Tissue, Duration of Therapy: Once (ED) [facility] doxycycline hyclate 100 mg capsule 2023-07 00:00: 00 06-29 05:59 :00 No [id number] 100mg Take 1 capsule by mouth in the morning and 1 capsule in the evening. Do all this for 7 days. [facility] cephALEXin 500 mg capsule 2023-07 00:00: 00 06-29 05:59 :00 No [id number] 500mg Take 1 capsule by mouth 4 (four) times daily for 7 days. [facility] iopamidol (ISOVUE 370-500 mL) injection 100 mL 2023-07 06:30: 00 06-15 06:30 :00 No [id number] 100mL 100 mL, Intravenou s, ONCE, 1 dose, On Sat06/15/24 at 0030, Routine [facility] morpHINE (4 mg/mL) injection 4 mg 2023-07 06:00: 00 06-15 05:57 :00 No 4mg 4 mg, Slow IV Push, ONCE, 1 dose, On Sat06/15/24 at 0000, STAT [facility] proMETHazin e (PHENERGAN) 12.5 mg in NS 50 mL IV piggyback (CNR) 2023-07 05:15: 00 06-15 05:56 :00 No 12.5mg 12.5 mg, IV Piggyback, at 200 mL/hr Administer over 15 Minutes, ONCE, 1 dose, On Sat06/14/24 at 2315, RO[facility]N [facility] NaCl 0.9% (NS) IV infusion 1,000 mL 2023-07 04:30: 00 06-15 05:28 :00 No 1000mL at 999 mL/hr, Intravenou s, ONCE, 1 dose, On Sat06/14/24 at 2230, Routine [facility] fentanyl PF (SUBLIMAZE (PF)) injection 50 mcg 2023-07 04:00: 00 06-15 04:23 :00 No 50ug 50 mcg, Slow IV Push, ONCE, 1 dose, On 06/14/24 at 2200, Routine [facility] famotidine (PEPCID (PF)) injection 20 mg 2023-07 03:30: 00 06-15 04:18 :00 No 20mg 20 mg, Slow IV Push, ONCE, 1 dose, On 06/14/24 at 2130, RO[facility]N [facility] ondansetron (ZOFRAN (PF)) injection 4 mg 2023-07 03:30: 00 06-15 04:20 :00 No 4mg 4 mg, Slow IV Push, ONCE, 1 dose, On 06/14/24 at 2130, Administer over 2-5 Minutes, 2 mL [facility] proMETHazin e 25 mg tablet 2023-07 00:00: 00 11-01 00:00 :00 No [id number] 25mg Take 1 tablet by mouth every 6 (six) hours as needed for Nausea and Vomiting (N/V). [facility] morpHINE (4 mg/mL) injection 4 mg 2023-07 08:15: 00 06-07 08:11 :00 No 4mg 4 mg, Slow IV Push, ONCE, 1 dose, On 06/07/24 at 0215, STAT [facility] ondansetron (ZOFRAN (PF)) injection 4 mg 2023-07 05:15: 00 06-07 05:23 :00 No 4mg 4 mg, Slow IV Push, ONCE, 1 dose, On 06/06/24 at 2315, Administer over 2-5 Minutes, 2 mL [facility] morpHINE (4 mg/mL) injection 4 mg 2023-07 05:15: 00 06-07 05:21 :00 No 4mg 4 mg, Slow IV Push, ONCE, 1 dose, On 06/06/24 at 2315, STAT [facility] nitroglycer in (NITROSTAT) sublingual tablet 0.4 mg 2023-07 05:08: 35 Yes .4mg 0.4 mg, Sublingual , Q5MIN PRN, 3 doses, Starting on 06/06/24 at 2308, Until Discontinu ed, ROSELYN, Chest pain [facility] hydrOXYzine Pamoate 50 MG oral Capsule 2023-07 13:02: 35 Yes [id number] 50mg Q.5D Take 1 capsule (50 mg total) by mouth 2 times daily as needed for anxiety. Kellee pinedo Vitamin D, Ergocalcife rol, 1.25 MG (01615 UT) oral Capsule 2023-07 00:00: 00 Yes [id number] 08418G Q1W Take 1 capsule (50,000 units total) by mouth once a week. Kellee pinedo ondansetron (ZOFRAN-ODT ) disintegrat ing tablet 4 mg 2023-07 20:15: 00 05-19 19:27 :00 No 4mg 4 mg, Oral, ONCE, 1 dose, On Sat05/19/24 at 1415, Routine [facility] HYDROcodone -acetaminop hen (NORCO 5) tablet 1 tablet 2023-07 18:00: 00 05-19 19:27 :00 No 1{tbl} 1 tablet, Oral, ONCE, 1 dose, On Sat05/19/24 at 1200, ROSELYN [facility] ondansetron 4 mg disintegrat ing tablet 2023-07 00:00: 00 11-01 00:00 :00 No [id number] 4mg Take 1 tablet by mouth every 8 (eight) hours as needed for Nausea and Vomiting (N/V). [facility] hydrOXYzine Pamoate 50 MG oral Capsule 2023-07 10:26: 29 Yes [id number] 50mg Q.5D Take 1 capsule (50 mg total) by mouth 2 times daily as needed for anxiety. Kellee pinedo ondansetron (ZOFRAN (PF)) injection 4 mg 2023-07 03:45: 00 05-18 03:42 :00 No 4mg 4 mg, Slow IV Push, ONCE, 1 dose, On 05/17/24 at 2145, [facility] morpHINE (4 mg/mL) injection 4 mg 2023-07 03:45: 00 05-18 03:42 :00 No 4mg 4 mg, Slow IV Push, ONCE, 1 dose, On 05/17/24 at 2145, [facility] ondansetron (ZOFRAN (PF)) injection 4 mg 2023-07 01:00: 00 05-18 01:21 :00 No 4mg 4 mg, Slow IV Push, ONCE, 1 dose, On 05/17/24 at 1900, [facility] fentanyl PF (SUBLIMAZE (PF)) injection 50 mcg 2023-07 01:00: 00 05-18 01:21 :00 No 50ug 50 mcg, Slow IV Push, ONCE, 1 dose, On 05/17/24 at 1900, [facility] Suvorexant (Belsomra) 20 MG oral Tablet 2023-07 00:00: 00 Yes [id number] 1{tbl} QD Take 1 tablet by mouth nightly. Kellee pinedo Methocarbam ol 750 MG oral Tablet 2023-07 00:00: 00 Yes [id number] 750mg Q.25D Take 1 tablet (750 mg total) by mouth 4 times daily. Kellee pinedo Acetaminoph en-Codeine 300-30 MG oral Tablet 2023-07 00:00: 00 Yes [id number] Kellee pinedo Lorazepam (ATIVAN) 0.5 MG oral Tablet tablet 2023-07 00:00: 00 Yes [id number] .5mg Q.5D Take 1 tablet (0.5 mg total) by mouth 2 times daily as needed for anxiety. Kellee pinedo Sertraline HCl 50 MG oral Tablet 2023-07 00:00: 00 Yes [id number] 50mg QD Take 1 tablet (50 mg total) by mouth daily Take in addition to 100 mg tablet for a total dose of 150 mg daily. Kellee pinedo Sertraline HCl 100 MG oral Tablet 2023-07 00:00: 00 Yes [id number] 100mg Take 1 tablet (100 mg total) by mouth every morning Take in addition to 50 mg tablet for a total dose of 150 mg daily. Kellee pinedo Isosorbide Mononitrate CR 30 MG oral TABLET SR 24 HR 2023-07 00:00: 00 Yes [id number] Kellee pinedo ondansetron (ZOFRAN (PF)) injection 4 mg 2023-07 01:30: 00 05-08 00:31 :00 No 4mg 4 mg, Slow IV Push, ONCE, 1 dose, On [place] 05/07/24 at 2030, ROSELYN [facility] morpHINE (4 mg/mL) injection 4 mg 2023-07 01:30: 00 05-08 01:20 :00 No 4mg 4 mg, Slow IV Push, ONCE, 1 dose, On [place] 05/07/24 at 2030, STAT [facility] ketorolac (TORADOL) injection 15 mg 2023-07 01:30: 00 05-08 00:30 :00 No 15mg 15 mg, Slow IV Push, ONCE, 1 dose, On [place] 05/07/24 at 2030[facility] phenazopy[facility]ine 200 mg tablet 2023-07 00:00: 00 11-01 00:00 :00 No [id number] 200mg Take 1 tablet by mouth in the morning and 1 tablet at noon and 1 tablet in the evening. [facility] Rosuvastati n Calcium 20 MG oral Tablet 2023-07 00:00: 00 Yes 20mg QD Take 1 tablet (20 mg total) by mouth daily. Kellee pinedo Metoprolol Succinate 25 MG oral TABLET SR 24 HR 2023-07 00:00: 00 Yes [id number] 25mg QD Take 1 tablet (25 mg total) by mouth daily. Kellee Parrisha l Dicyclomine HCl 20 MG oral Tablet 2023-07 0 00:00: 00 Yes Kellee Ariasazra pinedo Ondansetron (ZOFRAN) 4 MG oral TABLET DISPERSIBLE 2023-07 00:00: 00 Yes 4mg Q.[id number] 3D Take 1 tablet (4 mg total) by mouth 3 times daily. Kellee Ariasazra pinedo Belsomra 20 MG oral Tablet 2023-07 00:00: 00 05-18 00:00 :00 No [id number] 1{tbl} QD take 1 tablet by mouth every day at night Kellee Marcio pinedo Nitrofurant oin (Macrobid *) 100 Mg CAP Nitrofurant oin (Macrobid *) 100 Mg CAP 2023-07 0 18:32: 00 Yes 100 [facility] Ondansetron Hcl (Zofran *) 4 Mg Tablet Disint Ondansetron Hcl (Zofran *) 4 Mg Tablet Disint 2023-07 0 18:32: 00 Yes 1 [facility] cefTRIAXone (ROCEPHIN) 1,000 mg in NaCl 0.9% (NS) 100 mL MINI-BAG 2023-07 0 01:15: 00 04-09 01:24 :00 No 1000mg 1,000 mg, IV Piggyback, ONCE, 1 dose, On Sat04/08/24 at 2015, Administer over 30 Minutes, 100 mL, Reason for Anti-Infec tive: Documented Infection, Documented Infection Site: Urine, Duration of Therapy: Once (ED) [facility] fentanyl PF (SUBLIMAZE (PF)) injection 25 mcg 2023-07 0 00:15: 00 04-09 00:18 :00 No 25ug 25 mcg, Slow IV Push, ONCE, 1 dose, On Sat04/08/24 at 1915, STAT [facility] NaCl 0.9% (NS) bolus infusion 1,000 mL 2023-07 0 23:45: 00 04-09 01:24 :00 No 1000mL at 999 mL/hr, 1,000 mL, IV Infusion, ONCE, 1 dose, On Sat04/08/24 at 1845, [facility] ondansetron (ZOFRAN (PF)) injection 4 mg 2023-07 23:00: 00 04-08 22:57 :00 No 4mg 4 mg, Slow IV Push, ONCE, 1 dose, On Sat04/08/24 at 1800, [facility] ketorolac (TORADOL) injection 30 mg 2023-07 23:00: 00 04-08 22:57 :00 No 30mg 30 mg, Slow IV Push, ONCE, 1 dose, On Sat04/08/24 at 1800, [facility] sodium chloride (NS) injection 5 mL 2023-07 22:33: 00 Yes 5mL 5 mL, Intravenou s, PRN, Starting on Sat04/08/24 at 1733, Until Discontinu ed, Routine, IV line flushing [facility] ciprofloxac in HCl 500 mg tablet 2023-07 00:00: 00 11-01 00:00 :00 No [id number] 500mg Take 1 tablet by mouth in the morning and 1 tablet in the evening. [facility] Promethazin e HCl (PHENERGAN) 25 MG oral Tablet 03-14 00:00: 00 Yes 25mg Q.[id number] 3D Take 1 tablet (25 mg total) by mouth every 8 hours as needed for nausea. Kellee pinedo Clopidogrel Bisulfate (PLAVIX) 75 MG oral Tablet 02-09 00:00: 00 Yes [id number] 75mg QD take 1 tablet by mouth every day Kellee pinedo Aspirin Low Dose 81 MG oral Tablet Delayed Response 02-09 00:00: 00 Yes [id number] 81mg QD take 1 tablet by mouth every day Kellee pinedo Methylpredn isolone Acetate (Depo-Medro l) 40 mg/ml - Physician Administere d ([id number]) 02-05 13:21: 25 No [id number] 9104 40mg 40 mg, Physician Administer ed, ONCE, 1 dose, On [place] 02/06/24 at 1145 Kellee pinedo hydrOXYzine Pamoate 50 MG oral Capsule 02-05 11:06: 49 Yes [id number] 50mg Q.5D Take 1 capsule (50 mg total) by mouth 2 times daily as needed for anxiety. Kellee pinedo Isosorbide Mononitrate CR 60 MG oral TABLET SR 24 HR 02-04 00:00: 00 Yes Kellee pinedo Lorazepam (ATIVAN) 0.5 MG oral Tablet tablet 01-09 00:00: 00 Yes [id number] .5mg Q.5D take 1 tablet by mouth 2 times daily as needed for anxiety Kellee pinedo Aspirin (Aspirin Low Dose) 81 MG oral Tablet Delayed Response 01-05 00:00: 00 Yes [id number] 81mg QD Take 1 tablet (81 mg total) by mouth daily. Kellee pinedo Atorvastati n Calcium 40 MG oral Tablet 01-05 00:00: 00 Yes [id number] 40mg QD Take 1 tablet (40 mg total) by mouth daily. Kellee pinedo Suvorexant (Belsomra) 20 MG oral Tablet 01-05 00:00: 00 Yes [id number] 1{tbl} QD Take 1 tablet by mouth nightly. Kellee pinedo Clopidogrel Bisulfate (PLAVIX) 75 MG oral Tablet 01-05 00:00: 00 Yes [id number] 75mg QD Take 1 tablet (75 mg [...] MG oral Capsule 12-12 09:19: 23 Yes [id number] 50mg Q.5D Take 1 capsule (50 mg total) by mouth 2 times daily as needed for anxiety. Kellee pinedo Lorazepam (ATIVAN) 0.5 MG oral Tablet tablet 12-12 00:00: 00 Yes [id number] .5mg Q.5D Take 1 tablet (0.5 mg total) by mouth 2 times daily as needed for anxiety. Kellee pinedo Aspirin Low Dose 81 MG oral Tablet Delayed Response 12-05 00:00: 00 Yes [id number] 81mg Take 1 tablet (81 mg total) by mouth daily. Kellee pinedo Atorvastati n Calcium 40 MG oral Tablet 12-05 00:00: 00 Yes [id number] 40mg Take 1 tablet (40 mg total) by mouth daily. Kellee pinedo Clopidogrel Bisulfate (PLAVIX) 75 MG oral Tablet 12-05 00:00: 00 Yes [id number] 75mg Take 1 tablet (75 mg total) by mouth daily. Kellee pinedo Mometasone Furo-Formot camelia Fum (Dulera) 200-5 MCG/ACT inhalation Aerosol 12-05 00:00: 00 05-18 00:00 :00 No TWICE DAILY Kellee pinedo Vitamin D, Ergocalcife rol, 1.25 MG (68558 UT) oral Capsule 12-04 00:00: 00 Yes [id number] Q1W Take 1 capsule (50,000 units total) by mouth once a week. Kellee pinedo Ferrous Sulfate 325 (65 Fe) MG oral Tablet 12-04 00:00: 00 Yes [id number] 325mg QD Take 1 tablet (325 mg total) by mouth daily (with breakfast) . Kellee pinedo Clopidogrel Bisulfate (PLAVIX) 75 MG oral Tablet 12-04 00:00: 00 Yes [id number] 75mg QD Take 1 tablet (75 mg total) by mouth. Kellee pinedo Mirtazapine 45 MG oral Tablet 12-02 10:49: 07 12-02 00:00 :00 No [id number] 45mg Take 1 tablet (45 mg total) by mouth nightly. Kellee pinedo hydrOXYzine Pamoate 50 MG oral Capsule 12-02 10:49: 04 Yes [id number] 50mg Q.5D Take 1 capsule (50 mg total) by mouth 2 times daily as needed for anxiety. Kellee pinedo Ascorbic Acid 500 MG oral Tablet 12-02 10:48: 55 12-02 00:00 :00 No 50mg Take 50 mg by mouth. Kellee pinedo Suvorexant (Belsomra) 20 MG oral Tablet 12-02 00:00: 00 Yes [id number] 1{tbl} Take 1 tablet by mouth nightly. Kellee pinedo Lorazepam 1 MG oral Tablet 12-02 00:00: 00 12-12 00:00 :00 No [id number] 1mg Q.5D Take 1 tablet (1 mg total) by mouth 2 times daily as needed for anxiety. Kellee pinedo Doxepin HCl 3 MG oral Tablet 11-27 00:00: 00 05-18 00:00 :00 No [id number] 1{tbl} QD TAKE 1 TABLET BY MOUTH EVERY DAY AT NIGHT Kellee pinedo Aripiprazol e 5 MG oral Tablet 11-27 00:00: 00 05-18 00:00 :00 No [id number] 5mg QD TAKE 1 TABLET (5 MG TOTAL) BY MOUTH DAILY. Kellee pinedo Mirtazapine 45 MG oral Tablet 10-28 13:20: 59 Yes [id number] 45mg Take 1 tablet (45 mg total) by mouth nightly. Kellee pinedo Ascorbic Acid 500 MG oral Tablet 10-28 13:20: 47 Yes 50mg Take 50 mg by mouth. Kellee pinedo hydrOXYzine Pamoate 50 MG oral Capsule 10-28 13:20: 47 10-28 00:00 :00 No [id number] 50mg Q.5D Take 1 capsule (50 mg total) by mouth every 4 to 6 hours as needed. Kellee pinedo Sertraline HCl 150 MG oral Capsule 10-28 13:20: 03 10-28 00:00 :00 No 150mg Take 150 mg by mouth daily. Kellee pinedo Doxepin HCl 3 MG oral Tablet 10-28 00:00: 00 Yes [id number] 1{tbl} Take 1 tablet by mouth nightly. Kellee pinedo Aripiprazol e 5 MG oral Tablet 10-28 00:00: 00 Yes [id number] 5mg Take 1 tablet (5 mg total) by mouth daily. Kellee pinedo Suvorexant 10 MG oral Tablet 10-28 00:00: 00 12-02 00:00 :00 No [id number] 1{tbl} Take 1 tablet by mouth nightly. Kellee pinedo Sertraline HCl 50 MG oral Tablet 10-26 00:00: 00 Yes [id number] Kellee pinedo HYDROcodone -acetaminop hen (NORCO) 10-325 mg tablet 1 tablet 10-10 06:15: 00 10-10 05:25 :00 No 1{tbl} 1 tablet, Oral, ONCE NOW, 1 dose, On Sat10/11/23 at 0115, [facility] iopamidol (ISOVUE 370-500 mL) injection 100 mL 10-10 05:00: 00 10-10 05:00 :00 No [id number] 100mL 100 mL, Intravenou s, ONCE, 1 dose, On Sat10/11/23 at 0000, Routine [facility] ketorolac (TORADOL) injection 30 mg 10-10 04:30: 00 10-10 03:29 :00 No 30mg 30 mg, Slow IV Push, ONCE, 1 dose, On Sat10/10/23 at 2330, Routine [facility] NaCl 0.9% (NS) IV infusion 1,000 mL 10-10 04:15: 00 10-10 05:18 :00 No 1000mL at 999 mL/hr, Intravenou s, ONCE, 1 dose, On [place] 10/10/23 at 2315, Routine [facility] ondansetron (ZOFRAN (PF)) injection 4 mg 10-10 04:00: 00 10-10 03:54 :00 No 4mg 4 mg, Slow IV Push, ONCE, 1 dose, On [place] 10/10/23 at 2300, [facility] morpHINE (4 mg/mL) injection 4 mg 10-10 04:00: 00 10-10 03:54 :00 No 4mg 4 mg, Slow IV Push, ONCE, 1 dose, On [place] 10/10/23 at 2300, STAT [facility] traMADoL (ULTRAM) 50 mg tablet 10-10 00:00: 00 11-01 00:00 :00 No [id number] 50mg Take 1 tablet by mouth every 6 (six) hours as needed for Pain (scale 7-10). Indication s: acute pain [facility] phenazopyri dine 200 mg tablet 10-10 00:00: 00 11-01 00:00 :00 No [id number] 200mg Take 1 tablet by mouth in the morning and 1 tablet at noon and 1 tablet in the evening. [facility] ondansetron (ZOFRAN) 4 mg tablet 10-10 00:00: 00 11-01 00:00 :00 No [id number] 4mg Take 1 tablet by mouth every 8 (eight) hours as needed for Nausea and Vomiting (N/V). [facility] ketorolac 10 mg tablet 10-10 00:00: 00 11-01 00:00 :00 No [id number] 10mg Take 1 tablet by mouth every 6 (six) hours as needed for Pain (scale 7-10). [facility] Sertraline HCl 100 MG oral Tablet 4-04 00:00: 00 Yes [id number] 100mg Take 1 tablet (100 mg total) by mouth every morning. Kellee Buckley - Shobha pinedo acetaminoph en (TYLENOL) tablet 975 mg 2022-07 04:15: 00 07-02 03:11 :00 No 975mg 975 mg, Oral, ONCE, 1 dose, On Sat07/01/23 at 2215, [facility] dicyclomine (BENTYL) tablet 20 mg 2022-07 03:15: 00 07-02 03:11 :00 No 20mg 20 mg, Oral, ONCE, 1 dose, On Sat07/01/23 at 2115, [facility] ketorolac (TORADOL) injection 30 mg 2022-07 03:15: 00 07-02 02:32 :00 No 30mg 30 mg, Slow IV Push, ONCE, 1 dose, On Sat07/01/23 at 2115, Routine [facility] ondansetron (ZOFRAN (PF)) injection 4 mg 2022-07 03:00: 00 07-02 02:03 :00 No 4mg 4 mg, Slow IV Push, ONCE, 1 dose, On Sat07/01/23 at 2100, [facility] NaCl 0.9% (NS) bolus infusion 1,000 mL 2022-07 03:00: 00 07-02 04:10 :00 No 1000mL at 999 mL/hr, 1,000 mL, IV Infusion, ONCE, 1 dose, On Sat07/01/23 at 2100, STAT [facility] dicyclomine 20 mg tablet 2022-07 00:00: 00 11-01 00:00 :00 No [id number] 20mg Take 1 tablet by mouth 4 (four) times daily. [facility] ondansetron 4 mg disintegrat ing tablet 2022-07 00:00: 00 11-01 00:00 :00 No [id number] 4mg Take 1 tablet by mouth every 4 (four) hours as needed for Nausea and Vomiting (N/V). [facility] Alprazolam (Alprazolam *) 1 Mg TAB Alprazolam (Alprazolam *) 1 Mg TAB 2022-07 12:08: 00 06-14 00:00 :00 No 1 [facility] Trazodone Hcl (Desyrel 100 Mg*) 100 Mg TAB Trazodone Hcl (Desyrel 100 Mg*) 100 Mg TAB 2022-07 12:07: 00 06-06 12:08 :00 No 1 [facility] Aspirin (Aspirin Ec) 81 Mg Tablet Aspirin (Aspirin Ec) 81 Mg Tablet 2022-07 11:55: 00 07-07 00:00 :00 No 81 [facility] Alprazolam (Xanax 2 Mg*) 2 Mg TAB Alprazolam (Xanax 2 Mg*) 2 Mg TAB 2022-07 11:09: 40 06-06 12:08 :00 No 2 [facility] Trazodone Hcl (Desyrel 300 Mg*) 300 Mg TAB Trazodone Hcl (Desyrel 300 Mg*) 300 Mg TAB 2022-07 11:09: 39 05-13 15:45 :00 No 300 [facility] Alprazolam 1 MG oral Tablet 2022-07 00:00: 00 12-12 00:00 :00 No [id number] 2mg Take 2 tablets (2 mg total) by mouth 2 times daily. Kellee pinedo Pantoprazol e * (Protonix Ec *) 20 Mg Tablet Pantoprazol e * (Protonix Ec *) 20 Mg Tablet 2022-07 15:44: 00 06-05 00:28 :00 No 20 [facility] Sucralfate (Carafate *) 1 Gm TAB Sucralfate (Carafate *) 1 Gm TAB 2022-07 15:44: 00 06-05 00:28 :[address] [facility] Ciprofloxac in Hcl (Cipro *) 500 Mg TAB Ciprofloxac in Hcl (Cipro *) 500 Mg TAB 2022-07 15:44: 00 05-16 00:00 :[address] [facility] Pantoprazol e Sodium 20 MG oral Tablet Delayed Response 2022-07 00:00: 00 12-02 00:00 :00 No Take by mouth. Kellee Parrisha lee ketorolac (TORADOL) injection 15 mg 2022-07 01:00: 00 05-10 00:09 :00 No 15mg 15 mg, Slow IV Push, ONCE, 1 dose, On Sat05/09/23 at 2000, [facility] proCHLORper azine (COMPAZINE) injection 5 mg 2022-07 23:30: 00 05-09 22:48 :00 No 5mg 5 mg, Slow IV Push, ONCE, 1 dose, On Sat05/09/23 at 1830, [facility] diphen[facility] (BENADRYL) injection 25 mg 2022-07 22:45: 00 05-09 22:48 :00 No 25mg 25 mg, Slow IV Push, ONCE, 1 dose, On Sat05/09/23 at 1745, STAT [facility] HYDROcodone -acetaminop hen (NORCO) 10-325 mg tablet 1 tablet 2022-07 02:00: 00 05-01 01:04 :00 No 1{tbl} 1 tablet, Oral, ONCE, 1 dose, On Sat04/30/23 at 2100, Routine [facility] iopamidol (ISOVUE 370-500 mL) injection 100 mL 2022-07 0 00:45: 00 05-01 00:45 :00 No [id number] 100mL 100 mL, Intravenou s, ONCE, 1 dose, On Sat04/30/23 at 1945, Routine [facility] NaCl 0.9% (NS) bolus infusion 1,000 mL 2022-07 00:00: 00 05-01 00:45 :00 No 1000mL at 999 mL/hr, 1,000 mL, IV Piggyback, ONCE, 1 dose, On Sat04/30/23 at 1900, STAT [facility] proCHLORper azine (COMPAZINE) injection 5 mg 2022-07 23:45: 00 04-30 23:09 :00 No 5mg 5 mg, Slow IV Push, ONCE, 1 dose, On Sat04/30/23 at 1845, [facility] diphenhydrA MINE (BENADRYL) injection 25 mg 2022-07 23:00: 00 04-30 23:09 :00 No 25mg 25 mg, Slow IV Push, ONCE, 1 dose, On Sat04/30/23 at 1800, STAT [facility] dicyclomine 20 mg tablet 2022-07 00:00: 00 07-01 00:00 :00 No [id number] 20mg Take 1 tablet by mouth 4 (four) times daily. [facility] acetaminoph en (TYLENOL) tablet 1,000 mg 2022-07 02:45: 00 04-17 02:43 :00 No 1000mg 1,000 mg, Oral, ONCE, 1 dose, On Sat04/16/23 at 2145, [facility] ondansetron (ZOFRAN (PF)) injection 4 mg 2022-07 0 03:15: 00 04-09 02:13 :00 No 4mg 4 mg, Slow IV Push, ONCE, 1 dose, On Sat04/08/23 at 2215, [facility] dicyclomine (BENTYL) tablet 20 mg 2022-07 0-03 03:15: 00 04-09 02:16 :00 No 20mg 20 mg, Oral, ONCE, 1 dose, On Sat04/08/23 at 2215, Routine [facility] ondansetron (ZOFRAN (PF)) injection 4 mg 2022-07 23:45: 00 04-08 23:16 :00 No 4mg 4 mg, Slow IV Push, ONCE, 1 dose, On 04/08/23 at 1845, [facility] morpHINE (2 mg/mL) injection 4 mg 2022-07 23:45: 00 04-08 23:45 :00 No 4mg 4 mg, Slow IV Push, ONCE, 1 dose, On 04/08/23 at 1845, STAT [facility] ondansetron 4 mg disintegrat ing tablet 2022-07 00:00: 00 07-01 00:00 :00 No [id number] 4mg Take 1 tablet by mouth every 8 (eight) hours as needed for Nausea and Vomiting (N/V). [facility] dicyclomine 20 mg tablet 2022-07 00:00: 00 04-30 00:00 :00 No [id number] 20mg Take 1 tablet by mouth 4 (four) times daily. [facility] acetaminoph en (TYLENOL) tablet 1,000 mg 03-10 04:30: 00 03-10 04:29 :00 No 1000mg 1,000 mg, Oral, ONCE, 1 dose, On 03/09/23 at 2330, [facility] iopamidol (ISOVUE 370-500 mL) injection 85 mL 03-10 04:30: 00 03-10 04:30 :00 No [id number] 85mL 85 mL, Intravenou s, ONCE, 1 dose, On 03/09/23 at 2330, Routine [facility] FENTanyl PF (SUBLIMAZE (PF)) injection 75 mcg 03-10 04:00: 00 03-10 02:58 :00 No 75ug 75 mcg, Slow IV Push, ONCE, 1 dose, On 03/09/23 at 2300, STAT [facility] NaCl 0.9% (NS) IV infusion 1,000 mL 03-10 03:00: 00 Yes 1000mL at 20 mL/hr, IV Infusion, CONTINUOUS , Starting on 03/09/23 at 2200, Until Discontinu ed, Routine [facility] ondansetron (ZOFRAN (PF)) injection 4 mg 03-10 02:00: 00 03-10 02:01 :00 No 4mg 4 mg, Slow IV Push, ONCE, 1 dose, On 03/09/23 at 2100, [facility] morpHINE (4 mg/mL) injection 4 mg 03-10 02:00: 00 03-10 02:01 :00 No 4mg 4 mg, Slow IV Push, ONCE, 1 dose, On 03/09/23 at 2100, STAT [facility] polyethylen e glycol 3350 (MIRALAX) 17 gram powder 03-09 00:00: 00 11-01 00:00 :00 No [id number] 1{packe t} Take 1 Packet by mouth once daily as needed for Constipati on. [facility] Simethicone 125 mg 03-09 00:00: 00 11-01 00:00 :00 No [id number] 125mg Take 1 capsule by mouth after meals and at bedtime as needed for Gas. [facility] iopamidol (ISOVUE 370-500 mL) injection 100 mL 03-02 06:15: 00 03-02 06:15 :00 No [id number] 100mL 100 mL, Intravenou s, ONCE, 1 dose, On 03/02/23 at 0115, Routine [facility] NaCl 0.9% (NS) IV infusion 1,000 mL 03-02 05:15: 00 Yes 1000mL at 999 mL/hr, Intravenou s, CONTINUOUS , Starting on 03/02/23 at 0015, Until Discontinu ed, Routine [facility] ketorolac (TORADOL) injection 30 mg 03-02 05:15: 00 03-02 04:20 :00 No 30mg 30 mg, Slow IV Push, ONCE, 1 dose, On 03/02/23 at 0015, Routine [facility] ondansetron (ZOFRAN (PF)) injection 4 mg 03-02 05:00: 00 03-02 05:24 :00 No 4mg 4 mg, Slow IV Push, ONCE, 1 dose, On 03/02/23 at 0000, [facility] morpHINE (4 mg/mL) injection 4 mg 03-02 05:00: 00 03-02 05:24 :00 No 4mg 4 mg, Slow IV Push, ONCE, 1 dose, On 03/02/23 at 0000, STAT [facility] ondansetron (ZOFRAN (PF)) injection 4 mg 03-02 04:15: 00 03-02 04:21 :00 No 4mg 4 mg, Slow IV Push, ONCE, 1 dose, On Sat03/01/23 at 2315, [facility] ondansetron (ZOFRAN) 4 mg tablet 03-02 00:00: 00 11-01 00:00 :00 No [id number] 4mg Take 1 tablet by mouth every 8 (eight) hours as needed for Nausea and Vomiting (N/V). [facility] dicyclomine 20 mg tablet 03-02 00:00: 00 04-30 00:00 :00 No [id number] 20mg Take 1 tablet by mouth every 6 (six) hours as needed for Abdominal pain. [facility] metoclopram tracy HCl (REGLAN) injection 10 mg 02-18 06:45: 00 02-18 06:43 :00 No 10mg 10 mg, Slow IV Push, ONCE, 1 dose, On Sat02/18/23 at 0145, [facility] morpHINE (4 mg/mL) injection 4 mg 02-18 05:30: 00 02-18 05:28 :00 No 4mg 4 mg, Slow IV Push, ONCE, 1 dose, On Sat02/18/23 at 0030, STAT [facility] ondansetron (ZOFRAN (PF)) injection 4 mg 02-18 05:30: 00 02-18 05:28 :00 No 4mg 4 mg, Slow IV Push, ONCE, 1 dose, On Sat02/18/23 at 0030, [facility] NaCl 0.9% (NS) bolus infusion 1,000 mL 02-18 05:30: 00 02-18 05:15 :00 No 1000mL at 999 mL/hr, 1,000 mL, IV Infusion, ONCE, 1 dose, On Sat02/18/23 at 0030, STAT [facility] proMETHazin e (PHENERGAN) 25 mg in NaCl 0.9% (NS) 50 mL IV piggyback 02-18 04:30: 00 02-18 04:28 :00 No 25mg 25 mg, IV Piggyback, ONCE, 1 dose, On Sat02/17/23 at 2330, [facility] proMETHazin e 25 mg tablet 02-18 00:00: 00 11-01 00:00 :00 No [id number] 25mg Take 1 tablet by mouth every 6 (six) hours as needed for Nausea and Vomiting (N/V). [facility] bupropion HCl (WELLBUTRIN ORAL) 02-17 16:23: 24 Yes 150mg Take 150 mg by mouth every morning. [facility] melatonin 10 mg Tab 02-17 16:23: 24 Yes 1{tbl} Take 1 tablet by mouth at bedtime. [facility] trazodone HCl (TRAZODONE ORAL) 02-17 16:23: 24 Yes 400mg Take 400 mg by mouth at bedtime. [facility] ALPRAZOLAM ORAL 02-17 16:23: 24 11-04 00:00 :00 No 2mg Take 2 mg by mouth in the morning and 2 mg in the evening. [facility] escitalopra m oxalate (LEXAPRO) 5 mg tablet 02-17 16:23: 11-01 00:00 :00 No 10mg Take 2 tablets by mouth at bedtime. [facility] topiramate (TOPAMAX) 200 mg tablet 02-17 16:23: 11-01 00:00 :00 No 200mg Take 1 tablet by mouth every evening. [facility] OLANZapine (ZYPREXA) 15 mg tablet 02-17 16:23: 11-01 00:00 :00 No 15mg Take 1 tablet by mouth every evening. [facility] melatonin 10 mg Tab 02-17 16:23: 11-01 00:00 :00 No 10mg Take 1 tablet by mouth at bedtime. [facility] lactated ringers IV infusion 1,000 mL 02-17 02:15: 00 02-17 22:14 :00 No 1000mL at 100 mL/hr, 1,000 mL, IV Infusion, CONTINUOUS , Starting on 02/16/23 at 2115, Until 02/17/23 at 1714, Routine [facility] traZODone (DESYREL) tablet 400 mg 02-17 02:00: 00 Yes 400mg 400 mg, Oral, QHS, First dose on 02/16/23 at 2100, Until Discontinu ed [facility] melatonin (MELATIN) tablet 9 mg 02-17 02:00: 00 Yes 9mg 9 mg, Oral, QHS, First dose on 02/16/23 at 2100, Until Discontinu ed [facility] morpHINE (2 mg/mL) injection 2 mg 02-17 01:07: 50 03-01 01:06 :50 No 2mg 2 mg, Slow IV Push, Q4HPRN, Starting on 02/16/23 at 2006, Until [place] 02/28/23 at 2005, Routine, Pain (scale 7-10) [facility] OLANZapine (ZyPREXA) tablet 15 mg 02-16 22:00: 00 Yes 15mg 15 mg, Oral, QPM, First dose on 02/16/23 at 1700, Until Discontinu ed, Routine [facility] buPROPion XL (WELLBUTRIN XL) tablet 150 mg 02-16 14:00: 00 Yes 150mg 150 mg, Oral, DAILY, First dose on Sat02/16/23 at 0900, Until Discontinu ed [facility] enoxaparin (LOVENOX) injection 40 mg 02-16 14:00: 00 Yes 40mg 40 mg, Subcutaneo us, DAILY, First dose on 02/16/23 at 0900, Until Discontinu ed, Routine [facility] methocarbam oL (ROBAXIN) tablet 500 mg 02-16 06:04: 59 Yes 500mg 500 mg, Oral, Q6HPRN, Starting on 02/16/23 at 0104, Until Discontinu ed, Routine, Muscle Spasms [facility] ALPRAZolam (XANAX) tablet 2 mg 02-16 06:03: 54 Yes 2mg 2 mg, Oral, TIDPRN, Starting on 02/16/23 at 0103, Until Discontinu ed, Anxiety [facility] lactated ringers IV infusion 1,000 mL 02-16 03:15: 00 02-16 23:14 :00 No 1000mL at 100 mL/hr, 1,000 mL, IV Infusion, CONTINUOUS , Starting on Sat02/15/23 at 2215, Until 02/16/23 at 1814, Routine [facility] morpHINE (2 mg/mL) injection 2 mg 02-16 03:07: 02 02-17 01:08 :14 No 2mg 2 mg, Slow IV Push, Q4HPRN, Starting on Sat02/15/23 at 2207, Until 02/16/23 at 2008, Routine, Pain (scale 7-10) [facility] traMADoL (ULTRAM) tablet 50 mg 02-16 03:06: 59 02-18 03:05 :59 No 50mg 50 mg, Oral, Q8HPRN, Starting on Sat02/15/23 at 2206, Until Sat02/17/23 at 2205, Routine, Pain (scale 4-6) [facility] acetaminoph en (TYLENOL) tablet 1,000 mg 02-16 03:06: 50 Yes 1000mg 1,000 mg, Oral, Q6HPRN, Starting on Sat02/15/23 at 2206, Until Discontinu ed, Routine, Pain (scale 1-3), Temp > 38 C [facility] ALPRAZolam (XANAX) 1 mg tablet 02-16 01:09: 19 02-15 00:00 :00 No 1mg Take 1 tablet by mouth in the morning and 1 tablet in the evening. [facility] iopamidol (ISOVUE 370-500 mL) injection 80 mL 02-16 00:30: 00 02-16 00:30 :00 No [id number] 80mL 80 mL, Intravenou s, ONCE, 1 dose, On Sat02/15/23 at 1930, Routine [facility] lactated ringers IV infusion 1,000 mL 02-16 00:00: 00 02-16 03:07 :30 No [id number] 1000mL at 500 mL/hr, 1,000 mL, IV Infusion, CONTINUOUS , Starting on Sat02/15/23 at 1900, Until Sat02/15/23 at 2207, [facility] FENTanyl PF (SUBLIMAZE (PF)) injection 75 mcg 02-15 23:45: 00 02-15 23:13 :00 No [id number] 75ug 75 mcg, Slow IV Push, ONCE, 1 dose, On Sat02/15/23 at 1845, Routine [facility] dicyclomine (BENTYL) injection 20 mg 02-15 22:15: 00 02-15 21:46 :00 No [id number] 20mg 20 mg, Intramuscu lar, ONCE NOW, 1 dose, On Sat02/15/23 at 1715, Routine [facility] LORazepam (ATIVAN) injection 1 mg 02-15 21:45: 00 02-15 21:46 :00 No [id number] 1mg 1 mg, Slow IV Push, ONCE, 1 dose, On Sat02/15/23 at 1645, STAT [facility] ondansetron (ZOFRAN (PF)) injection 4 mg 02-15 21:45: 00 02-15 21:46 :00 No [id number] 4mg 4 mg, Slow IV Push, ONCE, 1 dose, On Sat02/15/23 at 1645, [facility] HYDROcodone -acetaminop hen (NORCO) 10-325 mg tablet 1 tablet 02-15 20:15: 00 02-15 19:52 :00 No [id number] 1{tbl} 1 tablet, Oral, ONCE, 1 dose, On Sat02/15/23 at 1515, Routine [facility] Melatonin 1 mg tablet 02-15 20:08: 23 02-15 00:00 :00 No 10mg Take 10 tablets by mouth every evening. [facility] trazodone HCl (DESYREL ORAL) 02-15 20:06: 33 02-15 00:00 :00 No 200mg Take 200 mg by mouth every evening. [facility] OLANZapine (ZYPREXA) 2.5 mg tablet 02-15 20:05: 48 02-15 00:00 :00 No 2.5mg Take 1 tablet by mouth in the morning and 1 tablet in the evening. [facility] hydrOXYzine (VISTARIL) 50 mg capsule 02-15 20:03: 04 02-15 00:00 :00 No 50mg Take 1 capsule by mouth every 4 (four) hours as needed for Itching. q 4-6 hours as needed [facility] dicyclomine (BENTYL) tablet 20 mg 02-15 19:30: 00 02-15 19:52 :00 No [id number] 20mg 20 mg, Oral, ONCE, 1 dose, On Sat02/15/23 at 1430, [facility] ibuprofen (IBU) tablet 800 mg 02-15 19:30: 00 02-15 19:52 :00 No [id number] 800mg 800 mg, Oral, ONCE, 1 dose, On Sat02/15/23 at 1430, [facility] losartan 50 mg tablet 02-15 13:44: 36 02-15 00:00 :00 No 50mg Take 1 tablet by mouth in the morning. [facility] [place]-3-DHA -EPA-Fish Oil (FISH OIL) 1,000 mg (120 mg-180 mg) Cap 02-15 13:44: 15 02-15 00:00 :00 No 1000mg Take 1,000 mg by mouth daily. [facility] methocarbam oL 750 mg tablet 02-15 13:43: 47 02-15 00:00 :00 No 750mg Take 750 mg by mouth 3 (three) times daily. [facility] FENTanyl PF (SUBLIMAZE (PF)) injection 50 mcg 01-10 00:45: 00 01-09 23:46 :00 No 50ug 50 mcg, Slow IV Push, ONCE, 1 dose, On Sat01/09/22 at 1945, Routine [facility] ketorolac (TORADOL) injection 30 mg 01-09 23:45: 00 01-09 22:48 :00 No 30mg 30 mg, Slow IV Push, ONCE, 1 dose, On Sat01/09/22 at 1845, Routine [facility] aspirin chewable tablet 243 mg 12-14 14:00: 00 Yes 243mg 243 mg, Oral, DAILY, First dose on Sat12/14/21 at 0900, Until Discontinu ed, Routine [facility] ketorolac (TORADOL) injection 15 mg 12-14 08:15: 00 12-14 07:11 :00 No 15mg 15 mg, Slow IV Push, ONCE, 1 dose, On Sat12/14/21 at 0315, [facility] morpHINE (4 mg/mL) injection 4 mg 12-14 05:45: 00 12-14 04:52 :00 No 4mg 4 mg, Slow IV Push, ONCE, 1 dose, On [place] 12/14/21 at 0045, STAT [facility] cefTRIAXone (ROCEPHIN) 1,000 mg in NaCl 0.9% (NS) 50 mL MINI-BAG 12-14 05:45: 00 12-14 05:30 :00 No 1000mg 1,000 mg, IV Piggyback, ONCE, 1 dose, On [place] 12/14/21 at 0045, Administer over 30 Minutes, 50 mL
Reas on for Anti-Infec tive: Documented Infection< br>Documen kaushik Infection Site: Urine
D uration of Therapy: Other (see Comments) [facility] NaCl 0.9% (NS) bolus infusion 1,000 mL 12-14 05:45: 00 12-14 07:20 :00 No 1000mL at 999 mL/hr, 1,000 mL, IV Infusion, ONCE, 1 dose, On [place] 12/14/21 at 0045[facility] (ZOFR[facility] (PF)) [facility] 4 mg 12-14 04:45: 00 12-14 03:50 :00 No 4mg 4 mg, Slow IV Push, ONCE, 1 dose, On Sat12/13/21 at 2345, [facility] FENTanyl PF (SUBLIMAZE (PF)) injection 50 mcg 12-14 04:45: 00 12-14 03:50 :00 No 50ug 50 mcg, Slow IV Push, ONCE, 1 dose, On Sat12/13/21 at 2345, Routine [facility] ALPRAZolam (XANAX) 1 mg tablet 12-14 02:22: 13 Yes 1mg Take 1 mg by mouth 2 (two) times daily. [facility] naproxen 500 mg tablet 12-14 00:00: 00 02-15 00:00 :00 No [id number] 500mg Take 1 tablet by mouth 2 (two) times daily with meals. [facility] cefpodoxime 200 mg tablet 12-14 00:00: 00 12-22 04:59 :00 No [id number] 200mg Take 1 tablet by mouth 2 (two) times daily for 7 days. [facility] LORazepam (ATIVAN) injection 1 mg 11-12 05:00: 00 11-12 04:01 :00 No 1mg 1 mg, Slow IV Push, ONCE, 1 dose, On 11/12/21 at 0000, STAT [facility] ketorolac (TORADOL) injection 30 mg 11-12 03:30: 00 11-12 02:26 :00 No 30mg 30 mg, Slow IV Push, ONCE, 1 dose, On 11/11/21 at 2230, Routine
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 Restricted medication : APPLE WANG [facility] nitroglycer in (NITROSTAT) sublingual tablet 0.4 mg 11-12 03:30: 00 11-12 02:26 :00 No .4mg 0.4 mg, Sublingual , ONCE, 1 dose, On 11/11/21 at 2230, [facility] aspirin E.C. (ECOTRIN) tablet 325 mg 11-12 03:30: 00 11-12 02:25 :00 No 325mg 325 mg, Oral, ONCE, 1 dose, On 11/11/21 at 2230, STAT [facility] morpHINE (4 mg/mL) injection 4 mg 11-12 02:30: 00 11-12 01:40 :00 No 4mg 4 mg, Slow IV Push, ONCE, 1 dose, On 11/11/21 at 2130, STAT [facility] ondansetron (ZOFRAN (PF)) injection 4 mg 11-12 02:30: 00 11-12 01:40 :00 No 4mg 4 mg, Slow IV Push, ONCE, 1 dose, On 11/11/21 at 2130, [facility] NaCl 0.9% (NS) bolus infusion 1,000 mL 08 02:30: 00 11-12 02:30 :00 No 1000mL at 999 mL/hr, 1,000 mL, IV Infusion, ONCE, 1 dose, On 11/11/21 at 2130, [facility] hydrOXYzine 50 mg tablet 11-11 00:00: 00 04-08 00:00 :00 No [id number] 50mg Take 1 tablet by mouth every 8 (eight) hours as needed for Anxiety. [facility] ketorolac (TORADOL) injection 30 mg 09-12 05:45: 00 09-12 04:54 :00 No 30mg 30 mg, Slow IV Push, ONCE, 1 dose, On Sat09/11/21 at 2345, Routine
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 Restricted medication : APPLE WANG [facility] cefTRIAXone (ROCEPHIN) 1,000 mg in NaCl 0.9% (NS) 50 mL MINI-BAG 09-12 03:45: 00 09-12 03:41 :00 No 1000mg 1,000 mg, IV Piggyback, ONCE, 1 dose, On Sat09/11/21 at 2145, Administer over 30 Minutes, 50 mL
Reas on for Anti-Infec tive: Documented Infection< br>Documen kaushik Infection Site: Urine
D uration of Therapy: 7 days [facility] ondansetron (ZOFRAN (PF)) injection 4 mg 09-12 03:15: 00 09-12 02:39 :00 No 4mg 4 mg, Slow IV Push, ONCE, 1 dose, On Sat09/11/21 at 2115, [facility] morpHINE injection 4 mg 08 03:15: 00 09-12 02:39 :00 No 4mg 4 mg, Slow IV Push, ONCE, 1 dose, On Sat09/11/21 at 2115, STAT [facility] iopamidol (ISOVUE 370-500 mL) injection 120 mL 09-12 02:45: 00 09-12 03:00 :00 No [id number] 120mL 120 mL, Intravenou s, ONCE, 1 dose, On Sat09/11/21 at 2100, Routine [facility] sodium chloride (NS) injection 5 mL 09-12 01:33: 26 Yes 5mL 5 mL, Intravenou s, PRN, Starting on Sat09/11/21 at 1933, Until Discontinu ed, Routine, IV line flushing [facility] ibuprofen 600 mg tablet 09-11 00:00: 00 02-15 00:00 :00 No [id number] 600mg Take 1 tablet by mouth every 6 (six) hours as needed for Pain (scale 4-6). [facility] cefdinir 300 mg capsule 09-11 00:00: 00 09-19 04:59 :00 No [id number] 300mg Take 1 capsule by mouth 2 (two) times daily for 7 days. [facility] HYDROcodone -acetaminop hen (NORCO) 10-325 mg tablet 1 tablet 08-15 09:00: 00 08-15 07:59 :00 No 1{tbl} 1 tablet, Oral, ONCE, 1 dose, On Sat08/15/21 at 0300, Routine [facility] FENTanyl PF (SUBLIMAZE (PF)) injection 75 mcg 08-15 07:30: 00 08-15 06:42 :00 No 75ug 75 mcg, Intramuscu lar, ONCE, 1 dose, On Sat08/15/21 at 0130, Routine [facility] methocarbam oL (ROBAXIN) 500 mg tablet 08-15 00:00: 00 Yes [id number] 500mg Take 1 tablet by mouth every 6 (six) hours as needed for Pain (scale 7-10) (MUSCLE SPASM). [facility] traMADoL (ULTRAM) 50 mg tablet 08-15 00:00: 00 11-01 00:00 :00 No [id number] 50mg Take 1 tablet by mouth every 6 (six) hours as needed for Pain (scale 7-10). Indication s: acute pain [facility] Nitrofurant oin&Nit. Macrocryst (MACROBID) 100 mg capsule 08-15 00:00: 00 02-15 00:00 :00 No [id number] 100mg Take 1 capsule by mouth 2 (two) times daily. [facility] morpHINE injection 4 mg 2020-07 08:30: 00 05-28 07:50 :00 No 4mg 4 mg, Slow IV Push, ONCE, 1 dose, On 05/28/21 at 0230, [facility] maalox:diph enhydrAMINE :lidocaine 2 % viscous 1:1:1 (FIRST-MOUT HWASH [facility]) oral suspension 15 mL 2020-07 08:00: 00 05-28 07:04 :00 No 15mL 15 mL, Oral, ONCE, 1 dose, On 05/28/21 at 0200, Routine [facility] FENTanyl PF (SUBLIMAZE (PF)) injection 50 mcg 2020-07 07:00: 00 05-28 06:02 :00 No 50ug 50 mcg, Slow IV Push, ONCE, 1 dose, On 05/28/21 at 0100, STAT [facility] famotidine (PEPCID (PF)) injection 20 mg 2020-07 07:00: 00 05-28 06:01 :00 No 20mg 20 mg, Slow IV Push, ONCE, 1 dose, On 05/28/21 at 0100, [facility] famotidine 20 mg tablet 2020-07 00:00: 00 06-13 05:59 :00 No [id number] 20mg Take 1 tablet by mouth 2 (two) times daily for 15 days. [facility] escitalopra m oxalate (LEXAPRO) tablet 10 mg 2020-07 0-03 02:00: 00 Yes 10mg 10 mg, Oral, QHS, First dose on 04/08/21 at 2100, Until Discontinu ed, Routine [facility] aspirin 81 mg chewable tablet 2020-07 00:00: 00 05-10 04:59 :00 No [id number] 81mg Take 1 tablet by mouth daily for 30 days. [facility] traZODone (DESYREL) tablet 200 mg 2020-07 22:00: 00 Yes 200mg 200 mg, Oral, QPM, First dose on 04/08/21 at 1700, Until Discontinu ed [facility] topiramate (TOPAMAX) tablet 200 mg 2020-07 22:00: 00 Yes 200mg 200 mg, Oral, QPM, First dose on 04/08/21 at 1700, Until Discontinu ed, Routine
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 [facility] [place]-3-DHA -EPA-Fish Oil (FISH OIL) 1,000 mg (120 mg-180 mg) Cap 2020-07 17:45: 33 Yes 1000mg Take 1,000 mg by mouth daily. [facility] hydrOXYzine (VISTARIL) 50 mg capsule 2020-07 17:45: 33 Yes 50mg Take 50 mg by mouth every 4 (four) hours as needed for Itching. q 4-6 hours as needed [facility] losartan 50 mg tablet 2020-07 17:45: 33 Yes 50mg Take 50 mg by mouth daily. [facility] trazodone HCl (DESYREL ORAL) 2020-07 17:45: 33 Yes 200mg Take 200 mg by mouth every evening. [facility] escitalopra m oxalate (LEXAPRO) 5 mg tablet 2020-07 17:45: 33 Yes 10mg Take 10 mg by mouth at bedtime. [facility] Melatonin 1 mg tablet 2020-07 17:45: 33 Yes 10mg Take 10 mg by mouth every evening. [facility] topiramate (TOPAMAX) 200 mg tablet 2020-07 17:45: 33 Yes 200mg Take 200 mg by mouth every evening. [facility] bupropion HCl (WELLBUTRIN ORAL) 2020-07 17:45: 33 Yes 150mg Take 150 mg by mouth every morning. [facility] OLANZapine (ZYPREXA) 15 mg tablet 2020-07 17:45: 33 Yes 15mg Take 15 mg by mouth every evening. [facility] OLANZapine (ZYPREXA) 2.5 mg tablet 2020-07 17:45: 33 Yes 2.5mg Take 2.5 mg by mouth 2 (two) times daily. [facility] furosemide (LASIX) injection 20 mg 2020-07 14:30: 00 Yes 20mg 20 mg, Slow IV Push, Q12H, First dose on 04/08/21 at 0930, Until Discontinu ed, Routine [facility] losartan (COZAAR) tablet 50 mg 2020-07 14:00: 00 Yes 50mg 50 mg, Oral, DAILY, First dose on 04/08/21 at 0900, Until Discontinu ed, Routine [facility] buPROPion XL (WELLBUTRIN XL) tablet 150 mg 2020-07 14:00: 00 Yes 150mg 150 mg, Oral, DAILY, First dose on 04/08/21 at 0900, Until Discontinu ed [facility] aspirin chewable tablet 81 mg 2020-07 14:00: 00 Yes 81mg 81 mg, Oral, DAILY, First dose on 10/2/21 at 0900, Until Discontinu ed, Routine [facility] enoxaparin (LOVENOX) injection 40 mg 2020-07 14:00: 00 Yes 40mg 40 mg, Subcutaneo us, DAILY, First dose on Sat04/08/21 at 0900, Until Discontinu ed, Routine [facility] OLANZapine (ZyPREXA) tablet 2.5 mg 2020-07 13:00: 00 Yes 2.5mg 2.5 mg, Oral, BID, First dose on Sat04/08/21 at 0800, Until Discontinu ed, Routine [facility] methocarbam oL (ROBAXIN) tablet 750 mg 2020-07 13:00: 00 Yes 750mg 750 mg, Oral, TID, First dose on Sat04/08/21 at 0800, Until Discontinu ed, Routine [facility] LORazepam (ATIVAN) injection 0.5 mg 2020-07 04:07: 43 Yes .5mg 0.5 mg, Slow IV Push, PRN, 2 doses, Starting on Sat04/07/21 at 2307, Until Discontinu ed, Routine, Anxiety [facility] hydrOXYzine (ATARAX) tablet 50 mg 2020-07 02:51: 23 Yes 50mg 50 mg, Oral, Q4HPRN, Starting on Sat04/07/21 at 2151, Until Discontinu ed, Itching [facility] LORazepam (ATIVAN) tablet 0.5 mg 2020-07 02:05: 29 Yes .5mg 0.5 mg, Oral, PRN, 2 doses, Starting on Sat04/07/21 at 2105, Until Discontinu ed, Routine, Anxiety [facility] morpHINE injection 4 mg 2020-07 00:00: 00 04-07 22:58 :00 No 4mg 4 mg, Slow IV Push, ONCE, 1 dose, On Sat04/07/21 at 1900, STAT [facility] ondansetron (ZOFRAN (PF)) injection 4 mg 2020-07 00:00: 00 04-07 22:56 :00 No 4mg 4 mg, Slow IV Push, ONCE, 1 dose, On Sat04/07/21 at 1900, [facility] morpHINE injection 4 mg 2020-07 23:58: 03 04-08 23:57 :03 No 4mg 4 mg, Slow IV Push, Q4HPRN, Starting on Sat04/07/21 at 1858, Until 04/08/21 at 1857, Routine, Pain (scale 7-10) [facility] HYDROcodone -acetaminop hen (NORCO 5) 5-325 mg tablet 1 tablet 2020-07 23:58: 00 04-09 23:57 :00 No 1{tbl} 1 tablet, Oral, Q6HPRN, Starting on Sat04/07/21 at 1858, Until 04/09/21 at 1857, Routine, Pain (scale 4-6) [facility] acetaminoph en (TYLENOL) tablet 650 mg 2020-07 23:57: 57 Yes 650mg 650 mg, Oral, Q6HPRN, Starting on Sat04/07/21 at 1857, Until Discontinu ed, Routine, Pain (scale 1-3) [facility] aspirin tablet 325 mg 2020-07 23:00: 00 04-07 21:56 :00 No 325mg 325 mg, Oral, ONCE, 1 dose, On Sat04/07/21 at 1800, STAT [facility] nitroglycer in (NITROSTAT) sublingual tablet 0.4 mg 2020-07 21:51: 01 04-07 22:46 :00 No .4mg 0.4 mg, Sublingual , Q5MIN PRN, 3 doses, Starting on Sat04/07/21 at 1651, Until Discontinu ed, ROSELYN, Chest pain [facility] fluconazole (DIFLUCAN) tablet 150 mg 01-12 14:00: 00 Yes 150mg 150 mg, Oral, DAILY, First dose on [place] 01/12/21 at 0900, Until Discontinu ed, [facility]N
Re ason for Anti-Infec tive: Empiric Therapy for Suspected Infection< br>Empiric Therapy Site: HEENT
D uration of therapy: 72 hours [facility] cefTRIAXone (ROCEPHIN) 1,000 mg in NaCl 0.9% (NS) 50 mL MINI-BAG 01-12 10:15: 00 01-12 09:49 :00 No 1000mg 1,000 mg, IV Piggyback, ONCE, 1 dose, [place] 01/12/21 at 0515, 50 mL
Reas on for Anti-Infec tive: Empiric Therapy for Suspected Infection< br>Empiric Therapy Site: Urine
D uration of therapy: 72 hours [facility] hydrOXYzine (ATARAX) tablet 25 mg 01-12 10:15: 00 01-12 09:18 :00 No 25mg 25 mg, Oral, ONCE, 1 dose, [place] 01/12/21 at 0515, [facility] HYDROcodone -acetaminop hen (NORCO) 10-325 mg tablet 1 tablet 01-12 10:15: 00 01-12 09:18 :00 No 1{tbl} 1 tablet, Oral, ONCE, 1 dose, [place] 01/12/21 at 0515, Routine [facility] maalox:diph enhydrAMINE :lidocaine2 %viscous 1:1:1: suspension (COMPOUNDED ) 01-12 09:30: 00 01-12 08:25 :00 No 15mL 15 mL, Oral, ONCE, 1 dose, [place] 01/12/21 at 0430, Routine [facility] cephALEXin (KEFLEX) 500 mg capsule 01-12 00:00: 00 04-07 00:00 :00 No [id number] 500mg Take 1 capsule by mouth 3 (three) times daily. [facility] HYDROcodone -acetaminop hen (NORCO 5) 5-325 mg tablet 1 tablet 12-11 02:00: 00 12-11 01:29 :00 No 1{tbl} 1 tablet, Oral, ONCE, 1 dose, 12/10/20 at 2100, [facility] LORazepam (ATIVAN) injection 1 mg 12-11 00:30: 00 12-10 23:36 :00 No 1mg 1 mg, Slow IV Push, ONCE, 1 dose, 12/10/20 at 1930, STAT [facility] ketorolac (TORADOL) injection 30 mg 12-11 00:30: 00 12-10 23:36 :00 No 30mg 30 mg, Slow IV Push, ONCE, 1 dose, 12/10/20 at 1930, [facility]
Fa culty member approving Restricted medication : EMERGENCY ROOM, [facility] ondansetron (ZOFRAN (PF)) injection 4 mg 12-10 23:45: 00 12-10 22:46 :00 No 4mg 4 mg, Slow IV Push, ONCE, 1 dose, 12/10/20 at 1845, [facility] NaCl 0.9% (NS) bolus infusion 2,000 mL 12-10 22:45: 00 12-11 01:29 :00 No 2000mL at 999 mL/hr, 2,000 mL, IV Infusion, ONCE, 1 dose, 12/10/20 at 1745, [facility] proMETHazin e 25 mg tablet 12-10 00:00: 00 04-07 00:00 :00 No [id number] 12.5mg Take 0.5 tablets by mouth every 6 (six) hours as needed for N/V unresponsi ve to Ondansetro n. [facility] morpHINE injection 4 mg 12-04 22:30: 00 12-04 21:37 :00 No 4mg 4 mg, Slow IV Push, ONCE, 1 dose, 12/04/20 at 1730, STAT [facility] losartan 50 mg tablet 12-04 22:03: 53 Yes 50mg Take 50 mg by mouth daily. [facility] LORazepam (ATIVAN) tablet 1 mg 12-04 21:45: 00 12-04 20:44 :00 No 1mg 1 mg, Oral, ONCE, 1 dose, [place] 12/04/20 at 1645, [facility] ondansetron (ZOFRAN (PF)) injection 4 mg 12-04 21:15: 00 12-04 20:22 :00 No 4mg 4 mg, Slow IV Push, ONCE, 1 dose, [place] 12/04/20 at 1615, [facility] morpHINE injection 4 mg 12-04 21:15: 00 12-04 20:21 :00 No 4mg 4 mg, Slow IV Push, ONCE, 1 dose, [place] 12/04/20 at 1615, [facility] ALPRAZolam (XANAX) 2 mg tablet 11-04 04:24: 19 11-03 00:00 :00 No 2mg Take 2 mg by mouth at bedtime. [facility] LORazepam (ATIVAN) injection 1 mg 11-04 04:00: 00 11-04 02:57 :00 No 1mg 1 mg, Slow IV Push, ONCE, 1 dose, [facility] 11/03/20 at 2300, [facility] LORazepam (ATIVAN) tablet 1 mg 11-04 04:00: 00 11-04 02:57 :00 No 1mg 1 mg, Oral, ONCE, 1 dose, [facility] 11/03/20 at 2300, [facility] clonazePAM 0.5 mg tablet 11-01 00:00: 00 04-07 00:00 :00 No .5mg Take 0.5 mg by mouth. [facility] SERTraline 100 mg tablet 11-01 00:00: 00 04-07 00:00 :00 No 100mg Take 100 mg by mouth. [facility] busPIRone 10 mg tablet 10-18 00:00: 00 04-07 00:00 :00 No 10mg Take 10 mg by mouth. [facility] Ciprofloxac in/Dexameth asone (Ciprodex 0.3%-0.1% Otic*) 1 Ea SUSP Ciprofloxac in/Dexameth asone (Ciprodex 0.3%-0.1% Otic*) 1 Ea SUSP 09-19 13:53: 00 09-30 00:00 :00 [facility] 800 mg 09-17 16:55: 00 09-17 16:57 :00 No 800mg 800 mg, Oral, ONCE, 1 dose, 09/17/20 at 1100, [facility] benzonatate 100 mg capsule 09-17 00:00: 00 04-07 00:00 :00 No [id number] 100mg Take 1 capsule by mouth 3 (three) times daily as needed for Cough. [facility] amoxicillin 500 mg capsule 09-17 00:00: 00 09-28 04:59 :00 No [id number] 500mg Take 1 capsule by mouth 3 (three) times daily for 10 days. [facility] HYDROcodone -acetaminop hen (NORCO) 10-325 mg tablet 1 tablet 09-07 07:45: 00 09-07 07:09 :00 No 1{tbl} 1 tablet, Oral, ONCE, 1 dose, 09/07/20 at 0145, Routine [facility] ondansetron (ZOFRAN-ODT ) disintegrat ing tablet 4 mg 09-07 07:15: 00 09-07 07:15 :00 No 4mg 4 mg, Oral, ONCE, 1 dose, 09/07/20 at 0130, Routine [facility] ibuprofen 800 mg tablet 09-07 00:00: 00 Yes [id number] 800mg Take 1 tablet by mouth every 8 (eight) hours as needed for Pain (scale 4-6). [facility] ketorolac (TORADOL) injection 30 mg 08-28 10:45: 00 08-28 09:48 :00 No 30mg 30 mg, Slow IV Push, ONCE, 1 dose, 08/28/20 at 0445, Routine
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 Restricted medication : BOB GARCIA [facility] ondansetron (ZOFRAN (PF)) injection 4 mg 08-28 10:00: 00 08-28 09:06 :00 No 4mg 4 mg, Slow IV Push, ONCE, 1 dose, 08/28/20 at 0400, [facility] FENTanyl PF (SUBLIMAZE (PF)) injection 50 mcg 08-28 10:00: 00 08-28 09:07 :00 No 50ug 50 mcg, Slow IV Push, ONCE, 1 dose, 08/28/20 at 0400, Routine [facility] maalox:diph enhydrAMINE :lidocaine 2 % viscous 1:1:1 (FIRST-MOUT HWASH [facility]) oral suspension 15 mL 08-28 10:00: 00 08-28 09:07 :00 No 15mL 15 mL, Oral, ONCE, 1 dose, 08/28/20 at 0400, Routine [facility] iohexol (OMNIPAQUE 350 BULK-100 mL) injection 120 mL 08-28 09:30: 00 08-28 09:11 :00 No 120mL 120 mL, Intravenou s, ONCE, 1 dose, 08/28/20 at 0330, Routine [facility] dicyclomine 20 mg tablet 08-28 00:00: 00 04-07 00:00 :00 No [id number] 20mg Take 1 tablet by mouth every 6 (six) hours as needed for Abdominal pain. [facility] ondansetron (ZOFRAN) 4 mg tablet 08-28 00:00: 00 09-17 00:00 :00 No [id number] 4mg Take 1 tablet by mouth every 8 (eight) hours as needed for Nausea and Vomiting (N/V). [facility] FENTanyl PF (SUBLIMAZE (PF)) injection 25 mcg 08-14 19:00: 08-14 18:09 :00 No 25ug 25 mcg, Slow IV Push, ONCE, 1 dose, 08/14/20 at 1300, STAT [facility] ondansetron (ZOFRAN (PF)) injection 4 mg 08-14 19:00: 00 08-14 18:10 :00 No 4mg 4 mg, Slow IV Push, ONCE, 1 dose, 08/14/20 at 1300, [facility] ketorolac (TORADOL) injection 15 mg 08-14 19:00: 08-14 18:09 :00 No 15mg 15 mg, Slow IV Push, ONCE, 1 dose, 08/14/20 at 1300, [facility]
Fa culty member approving Restricted medication : BEST TAYLOR [facility] piperacilli n-tazobacta m (ZOSYN) 3.375 g in NaCl 0.9% (NS) 100 mL MINI-BAG 08-14 19:00: 08-14 18:38 :00 No 3.375g 3.375 g, IV Piggyback, ONCE, 1 dose, 08/14/20 at 1300, 100 mL
Reas on for Anti-Infec tive: Documented Infection< br>Documen kaushik Infection Site: Urine
D uration of Therapy: Other (see Comments) [facility] NaCl 0.9% (NS) bolus infusion 1,000 mL 08-14 19:00: 00 08-14 19:00 :00 No 1000mL at 999 mL/hr, 1,000 mL, IV Infusion, ONCE, 1 dose, 08/14/20 at 1300, STAT [facility] guaiFENesin 100 mg/5 mL solution 08-14 00:00: 00 04-07 00:00 :00 No [id number] 100mg Take 5 mL by mouth every 4 (four) hours. [facility] ondansetron 4 mg disintegrat ing tablet 08-14 00:00: 00 09-17 00:00 :00 No [id number] 4mg Take 1 tablet by mouth every 8 (eight) hours as needed for Nausea and Vomiting (N/V). [facility] ibuprofen 600 mg tablet 08-14 00:00: 00 09-17 00:00 :00 No [id number] 600mg Take 1 tablet by mouth every 6 (six) hours as needed for Pain (scale 4-6). [facility] amoxicillin -clavulanat e 875-125 mg per tablet 08-14 00:00: 00 08-25 05:59 :00 No [id number] 1{tbl} Take 1 tablet by mouth 2 (two) times daily for 10 days. [facility] fluconazole (DIFLUCAN) tablet 150 mg 08-11 15:00: 00 Yes 150mg 150 mg, Oral, DAILY, First dose on [place] 08/11/20 at 0900, Until Discontinu ed, [place]
Re ason for Anti-Infec tive: Documented Infection< br>Documen kaushik Infection Site: Urine
D uration of Therapy: Other (see Comments) [facility] HYDROcodone -acetaminop hen (NORCO) 10-325 mg tablet 1 tablet 08-11 05:30: 00 08-11 05:08 :00 No 1{tbl} 1 tablet, Oral, ONCE NOW, 1 dose, Sat08/10/20 at 2330, Routine [facility] FENTanyl PF (SUBLIMAZE (PF)) injection 25 mcg 08-11 04:30: 00 08-11 03:19 :00 No 25ug 25 mcg, Slow IV Push, ONCE, 1 dose, Sat08/10/20 at 2230, STAT [facility] ondansetron (ZOFRAN (PF)) injection 4 mg 08-11 04:15: 00 08-11 03:19 :00 No 4mg 4 mg, Slow IV Push, ONCE, 1 dose, Sat08/10/20 at 2215, [facility] [facility] NaCl 0.9% (NS) bolus infusion 1,000 mL 08-11 01:45: 00 08-11 03:45 :00 No 1000mL at 999 mL/hr, 1,000 mL, IV Infusion, ONCE, 1 dose, Sat08/10/20 at 1945, STAT [facility] ketorolac (TORADOL) injection 30 mg 08-11 01:45: 00 08-11 02:31 :00 No 30mg 30 mg, Slow IV Push, ONCE, 1 dose, Sat08/10/20 at 1945, [facility]
Fa culty member approving Restricted medication : BEST TAYLOR [facility] traMADoL (ULTRAM) 50 mg tablet 08-10 00:00: 00 09-17 00:00 :00 No [id number] 50mg Take 1 tablet by mouth every 6 (six) hours as needed for Pain (scale 7-10). Indication s: acute pain [facility] ibuprofen 800 mg tablet 08-07 00:00: 00 09-17 00:00 :00 No [id number] 800mg Take 1 tablet by mouth every 8 (eight) hours. [facility] amoxicillin 500 mg capsule 08-07 00:00: 00 09-17 00:00 :00 No [id number] 500mg Take 1 capsule by mouth 3 (three) times daily. [facility] traMADoL 50 mg tablet 08-07 00:00: 00 09-17 00:00 :00 No [id number] 50mg Take 1 tablet by mouth every 6 (six) hours as needed for Pain (scale 4-6). Indication s: acute pain [facility] LORazepam (ATIVAN) tablet 1 mg 2019-07 03:15: 00 07-01 02:21 :00 No 1mg 1 mg, Oral, ONCE, 1 dose, [facility] 06/30/20 at 2115, [place] [facility] FENTanyl PF (SUBLIMAZE (PF)) injection 50 mcg 2019-07 02:30: 00 07-01 01:39 :00 No 50ug 50 mcg, Slow IV Push, ONCE, 1 dose, [place] 06/30/20 at 2030, Routine [facility] ondansetron (ZOFRAN-ODT ) disintegrat ing tablet 4 mg 2019-07 01:15: 07-01 00:52 :00 No 4mg 4 mg, Oral, ONCE, 1 dose, [place] 06/30/20 at 1915, Routine [facility] ketorolac (TORADOL) injection 30 mg 2019-07 01:15: 00 07-01 00:52 :00 No 30mg 30 mg, Slow IV Push, ONCE, 1 dose, [place] 06/30/20 at 1915, [facility]
Fa culty member approving Restricted medication : ABDIAS ROBERTSON [facility] albuterol 90 mcg/actuati on inhaler 2019-07 00:00: 04-07 00:00 :00 No [id number] 2{puff} Inhale 2 Puffs every 4 (four) hours as needed for Wheezing or Shortness of Breath. [facility] hydrOXYzine 25 mg tablet 2019-07 00:00: 00 09-17 00:00 :00 No [id number] 25mg Take 1 tablet by mouth every 6 (six) hours as needed for Anxiety. [facility] naproxen sodium (ANAPROX DS) 550 mg tablet 2019-07 00:00: 04-07 00:00 :00 No [id number] 550mg Take 1 tablet by mouth 2 (two) times daily with meals. [facility] methylPREDN ISolone (MEDROL, HEENA,) 4 mg tablets 2019-07 00:00: 00 09-17 00:00 :00 No [id number] Take by mouth SEE-INSTRU CTIONS. follow package directions [facility] methocarbam oL 500 mg tablet 2019-07 00:00: 00 07-04 05:59 :00 No [id number] 500mg Take 1 tablet by mouth 3 (three) times daily for 5 days. [facility] proMETHazin e (PHENERGAN) tablet 25 mg 2019-07 04:45: 00 06-13 03:37 :00 No 25mg 25 mg, Oral, ONCE, 1 dose, 06[facility]12[facility]20 [facility] 2245[facility] (ZOFR[facility] (PF[facility] 4 mg 2019-07 03:00: 00 06-13 01:59 :00 No 4mg 4 mg, Slow IV Push, ONCE, 1 dose, 06/12/20 at 2100, [facility] ketorolac (TORADOL) injection 15 mg 2019-07 03:00: 00 06-13 01:58 :00 No 15mg 15 mg, Intramuscu lar, ONCE, 1 dose, 06/12/20 at 2100, [facility]
Fa culty member approving Restricted medication : LEEANNE WISE [facility] morpHINE injection 4 mg 2019-07 01:30: 00 06-13 00:41 :00 No 4mg 4 mg, Slow IV Push, ONCE, 1 dose, 06/12/20 at 1930, STAT [facility] ondansetron (ZOFRAN (PF)) injection 4 mg 2019-07 00:45: 00 06-13 00:41 :00 No 4mg 4 mg, Slow IV Push, ONCE, 1 dose, 06/12/20 at 1845, [facility] NaCl 0.9% (NS) bolus infusion 1,000 mL 2019-07 23:45: 00 06-13 03:54 :00 No 1000mL at 999 mL/hr, 1,000 mL, IV Infusion, ONCE, 1 dose, 06/12/20 at 1745, [facility] dicyclomine 20 mg tablet 2019-07 00:00: 00 04-07 00:00 :00 No [id number] 20mg Take 1 tablet by mouth 4 (four) times daily as needed for Abdominal pain. [facility] proMETHazin e 25 mg tablet 2019-07 00:00: 00 09-17 00:00 :00 No [id number] 25mg Take 1 tablet by mouth every 6 (six) hours as needed for Nausea and Vomiting (N/V). [facility] famotidine 20 mg tablet 2019-0706 00:00: 00 06-27 05:59 :00 No [id number] 20mg Take 1 tablet by mouth at bedtime for 14 days. [facility] haloperidol lactate (HALDOL) injection 2.5 mg 2019-07 01:00: 00 05-16 23:51 :00 No 2.5mg 2.5 mg, Intravenou s, ONCE, 1 dose, [facility] 05/16/20 at 1900, STAT [facility] NaCl 0.9% (NS) bolus infusion 1,000 mL 2019-07 23:45: 00 05-17 00:54 :00 No 1000mL at 999 mL/hr, 1,000 mL, IV Infusion, ONCE, 1 dose, [facility] 05/16/20 at 1745, ROSE[facility]N [facility] proMETHazin e (PHENERGAN) 25 mg suppository 2019-07 00:00: 00 Yes [id number] 25mg Insert 1 Suppositor y into rectum every 4 (four) hours as needed for Nausea and Vomiting (N/V). [facility] ondansetron (ZOFRAN (PF)) injection 4 mg 2019-07 07:30: 00 05-15 06:26 :00 No 4mg 4 mg, Slow IV Push, ONCE, 1 dose, [place] 05/15/20 at 0130, RO[facility]N [facility] iohexol (OMNIPAQUE 350 BULK-100 mL) injection 120 mL 2019-07 07:00: 00 05-15 06:52 :00 No 120mL 120 mL, Intravenou s, ONCE, 1 dose, [place] 05/15/20 at 0100, Routine [facility] ondansetron (ZOFRAN (PF)) injection 4 mg 2019-07 06:30: 00 05-15 05:52 :00 No 4mg 4 mg, Slow IV Push, ONCE, 1 dose, 05/15/20 at 0030, RO[facility]N [facility] ALPRAZolam (XANAX) 2 mg tablet 2019-07 05:30: 59 Yes 2mg Take 2 mg by mouth at bedtime. [facility] zolpidem 5 mg tablet 6-15 00:00: 00 04-07 00:00 :00 No 5mg Take 5 mg by mouth. [facility] Immunizations Ordered Immunization Name Filled Immunization Name Date Status Comments Source Covid-19 Vaccine Moderna (Spikevax), Mrna-lnp, Zackery Protein, Pf Unknown Completed [facility] - External Covid-19 Vaccine Moderna (Spikevax), Mrna-lnp, Zackery Protein, Pf Unknown Completed [facility] - External Covid-19 Vaccine Moderna (Spikevax), Mrna-lnp, Zackery Protein, Pf Unknown Completed [facility] - External Covid-19 Vaccine Moderna (Spikevax), Mrna-lnp, Zackery Protein, Pf Unknown [facility]19 Vaccine Moderna (Spikevax), Mrna-lnp, Zackery Protein, Pf Unknown Completed [facility] [place] - External Covid-19 Vaccine Moderna (Spikevax), Mrna-lnp, Zackery Protein, Pf Unknown Completed [facility] - External Covid-19 Vaccine Moderna (Spikevax), Mrna-lnp, Zackery Protein, Pf Unknown [facility] Cov[facility]-19 Vaccine Moderna (Spikevax), Mrna-lnp, Zackery Protein, Pf Unknown Completed [facility] - External Covid-19 Vaccine Moderna (Spikevax), Mrna-lnp, Zackery Protein, Pf Unknown Completed [facility] - External Covid-19 Vaccine Moderna (Spikevax), Mrna-lnp, Zackery Protein, Pf Unknown Completed [facility] [place] - External Covid-19 Vaccine Moderna (Spikevax), Mrna-lnp, Zackery Protein, Pf Unknown Completed [facility] - External Vital Signs Vital Name Observation Time Observation Value Comments S donnie Systolic blood pressure 2024-11-27 16:12:00 99 mm[Hg] [facility] Diastolic blood pressure 2024-11-27 16:12:00 54 mm[Hg] [facility] Heart rate 2024-11-27 16:12:00 60 /min [facility] Body temperature 2024-11-27 16:12:00 36.28 Latanya [facility] Respiratory rate 2024-11-27 16:12:00 18 /min [facility] Oxygen saturation in Arterial blood by Pulse oximetry 2024-11-27 16:12:00 96 /min [facility] Body height 2024-11-27 03:49:00 157.5 cm [facility] Body weight 2024-11-27 03:49:00 108.41 kg [facility] BMI 2024-11-27 03:49:00 43.71 kg/m2 [facility] Systolic blood pressure 2024-11-15 01:43:00 165 mm[Hg] [facility] Diastolic blood pressure 2024-11-15 01:43:00 115 mm[Hg] [facility] Heart rate 2024-11-15 01:43:00 87 /min [facility] Body temperature 2024-11-15 01:43:00 36.72 Latanya [facility] Respiratory rate 2024-11-15 01:43:00 17 /min [facility] Body height 2024-11-15 01:43:00 157.5 cm [facility] Body weight 2024-11-15 01:43:00 108.41 kg [facility] BMI 2024-11-15 01:43:00 43.71 kg/m2 [facility] Oxygen saturation in Arterial blood by Pulse oximetry 2024-11-15 01:43:00 98 /min [facility] Body temperature 2024-11-11 05:30:00 37.17 Latanya [facility] Systolic blood pressure 2024-11-11 05:02:00 141 mm[Hg] [facility] Diastolic blood pressure 2024-11-11 05:02:00 100 mm[Hg] [facility] Heart rate 2024-11-11 05:02:00 76 /min [facility] Respiratory rate 2024-11-11 05:02:00 21 /min [facility] Oxygen saturation in Arterial blood by Pulse oximetry 2024-11-11 05:02:00 96 /min [facility] Body height 2024-11-11 00:53:00 157.5 cm [facility] Body weight 2024-11-11 00:53:00 108.41 kg [facility] BMI 2024-11-11 00:53:00 43.71 kg/m2 [facility] Systolic blood pressure 2024-11-04 19:00:00 134 mm[Hg] [facility] Diastolic blood pressure 2024-11-04 19:00:00 85 mm[Hg] [facility] Heart rate 2024-11-04 19:00:00 86 /min [facility] Body temperature 2024-11-04 19:00:00 36.94 Latanya [facility] Oxygen saturation in Arterial blood by Pulse oximetry 2024-11-04 19:00:00 98 /min [facility] Respiratory rate 2024-11-04 08:24:00 16 /min [facility] Body height 2024-11-03 17:28:00 157.5 cm [facility] Body weight 2024-11-03 17:28:00 108.7 kg [facility] BMI 2024-11-03 17:28:00 43.83 kg/m2 [facility] Systolic blood pressure 2024-11-03 21:17:00 123 mm[Hg] [facility] Diastolic blood pressure 2024-11-03 21:17:00 74 mm[Hg] [facility] Heart rate 2024-11-03 21:17:00 72 /min [facility] Body temperature 2024-11-03 21:17:00 37.11 Latanya [facility] Respiratory rate 2024-11-03 21:17:00 18 /min [facility] Oxygen saturation in Arterial blood by Pulse oximetry 2024-11-03 21:17:00 98 /min [facility] Body height 2024-11-03 17:28:00 157.5 cm [facility] Body weight 2024-11-03 17:28:00 108.7 kg [facility] BMI 2024-11-03 17:28:00 43.83 kg/m2 [facility] Heart rate 2024-10-24 04:50:00 77 /min [facility] Body temperature 2024-10-24 04:50:00 36.83 Latanya [facility] Respiratory rate 2024-10-24 04:50:00 21 /min [facility] Oxygen saturation in Arterial blood by Pulse oximetry 2024-10-24 04:50:00 96 /min [facility] Systolic blood pressure 2024-10-24 04:15:00 146 mm[Hg] [facility] Diastolic blood pressure 2024-10-24 04:15:00 90 mm[Hg] [facility] Body height 2024-10-24 01:16:00 157.5 cm [facility] Body weight 2024-10-24 01:16:00 108.863 kg [facility] BMI 2024-10-24 01:16:00 43.90 kg/m2 [facility] Systolic blood pressure 2024-10-23 15:10:00 132 mm[Hg] [...] Systolic blood pressure 2024-10-13 07:35:00 135 mm[Hg] [facility] Diastolic blood pressure 2024-10-13 07:35:00 87 mm[Hg] [facility] Heart rate 2024-10-13 07:35:00 86 /min [facility] Body temperature 2024-10-13 07:35:00 36.72 Latanya [facility] Respiratory rate 2024-10-13 07:35:00 19 /min [facility] Oxygen saturation in Arterial blood by Pulse oximetry 2024-10-13 07:35:00 98 /min [facility] Body height 2024-10-13 03:27:00 157.5 cm [facility] Body weight 2024-10-13 03:27:00 104.327 kg [facility] BMI 2024-10-13 03:27:00 42.07 kg/m2 [facility] Body temperature 2024-07-19 07:17:00 36.56 Latanya [facility] Heart rate 2024-07-19 07:14:00 74 /min [facility] Respiratory rate 2024-07-19 07:14:00 27 /min [facility] Oxygen saturation in Arterial blood by Pulse oximetry 2024-07-19 07:14:00 100 /min [facility] Systolic blood pressure 2024-07-19 07:00:00 123 mm[Hg] [facility] Diastolic blood pressure 2024-07-19 07:00:00 93 mm[Hg] [facility] Body height 2024-07-19 04:44:00 157.5 cm [facility] Body weight 2024-07-19 04:44:00 104.327 kg [facility] BMI 2024-07-19 04:44:00 42.07 kg/m2 [facility] Systolic blood pressure 2024-07-04 07:00:00 132 mm[Hg] [facility] Diastolic blood pressure 2024-07-04 07:00:00 98 mm[Hg] [facility] Heart rate 2024-07-04 07:00:00 85 /min [facility] Body temperature 2024-07-04 07:00:00 36.78 Latanya [facility] Respiratory rate 2024-07-04 07:00:00 18 /min [facility] Oxygen saturation in Arterial blood by Pulse oximetry 2024-07-04 07:00:00 94 /min [facility] Body height 2024-07-04 01:53:00 157.5 cm [facility] Body weight 2024-07-04 01:53:00 105.688 kg [facility] BMI 2024-07-04 01:53:00 42.62 kg/m2 [facility] Systolic blood pressure 2024-06-21 08:00:00 180 mm[Hg] [facility] Diastolic blood pressure 2024-06-21 08:00:00 107 mm[Hg] [facility] Heart rate 2024-06-21 08:00:00 89 /min [facility] Body temperature 2024-06-21 08:00:00 37.11 Latanya [facility] Respiratory rate 2024-06-21 08:00:00 22 /min [facility] Body height 2024-06-21 08:00:00 157.5 cm [facility] Body weight 2024-06-21 08:00:00 108.41 kg [facility] BMI 2024-06-21 08:00:00 43.71 kg/m2 [facility] Oxygen saturation in Arterial blood by Pulse oximetry 2024-06-21 08:00:00 100 /min [facility] Heart rate 2024-06-15 06:22:00 87 /min [facility] Body temperature 2024-06-15 06:22:00 37.11 Latanya [facility] Oxygen saturation in Arterial blood by Pulse oximetry 2024-06-15 06:22:00 96 /min [facility] Systolic blood pressure 2024-06-15 06:00:00 137 mm[Hg] [facility] Diastolic blood pressure 2024-06-15 06:00:00 85 mm[Hg] [facility] Respiratory rate 2024-06-15 06:00:00 15 /min [facility] Body height 2024-06-15 03:23:00 157.5 cm [facility] Body weight 2024-06-15 03:23:00 109.997 kg [facility] BMI 2024-06-15 03:23:00 44.35 kg/m2 [facility] Body temperature 2024-06-07 08:35:48 36.89 Latanya [facility] Systolic blood pressure 2024-06-07 08:00:00 129 mm[Hg] [facility] Diastolic blood pressure 2024-06-07 08:00:00 108 mm[Hg] [facility] Heart rate 2024-06-07 08:00:00 69 /min [facility] Respiratory rate 2024-06-07 08:00:00 24 /min [facility] Oxygen saturation in Arterial blood by Pulse oximetry 2024-06-07 08:00:00 97 /min [facility] Body height 2024-06-07 04:02:00 157.5 cm [facility] Body weight 2024-06-07 04:02:00 105.688 kg [facility] BMI 2024-06-07 04:02:00 42.62 kg/m2 [facility] Systolic blood pressure 2024-05-19 19:32:00 130 mm[Hg] [facility] Diastolic blood pressure 2024-05-19 19:32:00 74 mm[Hg] [facility] Heart rate 2024-05-19 19:32:00 84 /min [facility] Respiratory rate 2024-05-19 19:32:00 18 /min [facility] Oxygen saturation in Arterial blood by Pulse oximetry 2024-05-19 19:32:00 99 /min [facility] Body temperature 2024-05-19 17:44:00 36.83 Latanya [facility] Body height 2024-05-19 17:44:00 157.5 cm [facility] Body weight 2024-05-19 17:44:00 108.863 kg [facility] BMI 2024-05-19 17:44:00 43.90 kg/m2 [facility] Systolic blood pressure 2024-05-18 16:21:00 126 mm[Hg] [...] External Heart rate 2024-05-18 04:14:00 111 /min [facility] Body temperature 2024-05-18 04:14:00 37 Latanya [facility] Respiratory rate 2024-05-18 04:14:00 27 /min [facility] Oxygen saturation in Arterial blood by Pulse oximetry 2024-05-18 04:14:00 94 /min [facility] Systolic blood pressure 2024-05-18 04:00:00 141 mm[Hg] [facility] Diastolic blood pressure 2024-05-18 04:00:00 122 mm[Hg] [facility] Body height 2024-05-18 00:33:00 157.5 cm [facility] Body weight 2024-05-18 00:33:00 107.502 kg [facility] BMI 2024-05-18 00:33:00 43.35 kg/m2 [facility] Heart rate 2024-05-08 02:05:00 91 /min [facility] Respiratory rate 2024-05-08 02:05:00 22 /min [facility] Oxygen saturation in Arterial blood by Pulse oximetry 2024-05-08 02:05:00 95 /min [facility] Systolic blood pressure 2024-05-08 02:00:00 140 mm[Hg] [facility] Diastolic blood pressure 2024-05-08 02:00:00 86 mm[Hg] [facility] Body temperature 2024-05-07 23:46:00 36.78 Latanya [facility] Body height 2024-05-07 23:46:00 157.5 cm [facility] Body weight 2024-05-07 23:46:00 107.729 kg [facility] BMI 2024-05-07 23:46:00 43.44 kg/m2 [facility] Height 2024-04-10 16:28:00 157.928836 cm [facility] Weight 2024-04-10 16:28:00 104.147130 kg [facility] BMI (Body Mass Index) 2024-04-10 16:28:00 42.1 kg/m2 [facility] Systolic blood pressure 2024-04-09 01:30:00 134 mm[Hg] [facility] Diastolic blood pressure 2024-04-09 01:30:00 64 mm[Hg] [facility] Heart rate 2024-04-09 01:30:00 102 /min [facility] Body temperature 2024-04-09 01:30:00 36.61 Latanya [facility] Respiratory rate 2024-04-09 01:30:00 17 /min [facility] Oxygen saturation in Arterial blood by Pulse oximetry 2024-04-09 01:30:00 96 /min [facility] Body height 2024-04-08 22:31:00 157.5 cm [facility] Body weight 2024-04-08 22:31:00 104.327 kg [facility] BMI 2024-04-08 22:31:00 42.07 kg/m2 [facility] Body temperature 2023-12-13 14:10:00 36.72 Latanya Kellee [...] Systolic blood pressure 2023-10-11 05:00:00 126 mm[Hg] [facility] Diastolic blood pressure 2023-10-11 05:00:00 87 mm[Hg] [facility] Heart rate 2023-10-11 05:00:00 94 /min [facility] Respiratory rate 2023-10-11 05:00:00 22 /min [facility] Oxygen saturation in Arterial blood by Pulse oximetry 2023-10-11 05:00:00 98 /min [facility] Body temperature 2023-10-11 02:28:00 37.22 Latanya [facility] Body height 2023-10-11 02:28:00 157.5 cm [facility] Body weight 2023-10-11 02:28:00 99.791 kg [facility] BMI 2023-10-11 02:28:00 40.24 kg/m2 [facility] Systolic blood pressure 2023-07-02 04:10:00 147 mm[Hg] [facility] Diastolic blood pressure 2023-07-02 04:10:00 89 mm[Hg] [facility] Heart rate 2023-07-02 04:10:00 73 /min [facility] Respiratory rate 2023-07-02 04:10:00 19 /min [facility] Oxygen saturation in Arterial blood by Pulse oximetry 2023-07-02 04:10:00 98 /min [facility] Body temperature 2023-07-02 01:47:00 36.78 Latanya [facility] Body height 2023-07-02 01:47:00 160 cm [facility] Body weight 2023-07-02 01:47:00 97.659 kg [facility] BMI 2023-07-02 01:47:00 38.14 kg/m2 [facility] Systolic blood pressure 2023-05-10 01:00:00 133 mm[Hg] [facility] Diastolic blood pressure 2023-05-10 01:00:00 81 mm[Hg] [facility] Heart rate 2023-05-10 01:00:00 64 /min [facility] Respiratory rate 2023-05-10 01:00:00 21 /min [facility] Oxygen saturation in Arterial blood by Pulse oximetry 2023-05-10 01:00:00 96 /min [facility] Body temperature 2023-05-09 22:43:00 36.67 Latanya [facility] Body height 2023-05-09 22:43:00 157.5 cm [facility] Body weight 2023-05-09 22:43:00 99.791 kg [facility] BMI 2023-05-09 22:43:00 40.24 kg/m2 [facility] Systolic blood pressure 2023-05-01 01:00:00 107 mm[Hg] [facility] Diastolic blood pressure 2023-05-01 01:00:00 80 mm[Hg] [facility] Heart rate 2023-05-01 01:00:00 80 /min [facility] Body temperature 2023-05-01 01:00:00 37.06 Latanya [facility] Respiratory rate 2023-05-01 01:00:00 16 /min [facility] Oxygen saturation in Arterial blood by Pulse oximetry 2023-05-01 01:00:00 98 /min [facility] Body height 2023-04-30 22:16:00 157.5 cm [facility] Body weight 2023-04-30 22:16:00 95.255 kg [facility] BMI 2023-04-30 22:16:00 38.41 kg/m2 [facility] Systolic blood pressure 2023-04-17 02:00:00 147 mm[Hg] [facility] Diastolic blood pressure 2023-04-17 02:00:00 83 mm[Hg] [facility] Heart rate 2023-04-17 02:00:00 90 /min [facility] Respiratory rate 2023-04-17 02:00:00 18 /min [facility] Oxygen saturation in Arterial blood by Pulse oximetry 2023-04-17 02:00:00 96 /min [facility] Body temperature 2023-04-17 01:33:00 36.78 Latanya [facility] Body height 2023-04-17 01:33:00 157.5 cm [facility] Body weight 2023-04-17 01:33:00 99.791 kg [facility] BMI 2023-04-17 01:33:00 40.24 kg/m2 [facility] Systolic blood pressure 2023-04-09 01:04:48 135 mm[Hg] [facility] Diastolic blood pressure 2023-04-09 01:04:48 84 mm[Hg] [facility] Heart rate 2023-04-09 01:04:48 67 /min [facility] Respiratory rate 2023-04-09 01:04:48 16 /min [facility] Oxygen saturation in Arterial blood by Pulse oximetry 2023-04-09 01:04:48 99 /min [facility] Body temperature 2023-04-08 22:16:00 36.67 Latanya [facility] Body height 2023-04-08 22:16:00 157.5 cm [facility] Body weight 2023-04-08 22:16:00 99.791 kg [facility] BMI 2023-04-08 22:16:00 40.24 kg/m2 [facility] Systolic blood pressure 2023-03-10 05:00:00 156 mm[Hg] [facility] Diastolic blood pressure 2023-03-10 05:00:00 94 mm[Hg] [facility] Heart rate 2023-03-10 05:00:00 75 /min [facility] Respiratory rate 2023-03-10 05:00:00 21 /min [facility] Oxygen saturation in Arterial blood by Pulse oximetry 2023-03-10 05:00:00 97 /min [facility] Body temperature 2023-03-10 01:20:00 36.72 Latanya [facility] Body height 2023-03-10 01:20:00 157.5 cm [facility] Body weight 2023-03-10 01:20:00 100.381 kg [facility] BMI 2023-03-10 01:20:00 40.48 kg/m2 [facility] Systolic blood pressure 2023-03-02 06:00:00 126 mm[Hg] [facility] Diastolic blood pressure 2023-03-02 06:00:00 79 mm[Hg] [facility] Heart rate 2023-03-02 06:00:00 69 /min [facility] Respiratory rate 2023-03-02 06:00:00 23 /min [facility] Oxygen saturation in Arterial blood by Pulse oximetry 2023-03-02 06:00:00 94 /min [facility] Body temperature 2023-03-02 00:34:00 37.28 Latanya [facility] Body height 2023-03-02 00:34:00 157.5 cm [facility] Body weight 2023-03-02 00:34:00 99.791 kg [facility] BMI 2023-03-02 00:34:00 40.24 kg/m2 [facility] Systolic blood pressure 2023-02-18 06:46:00 126 mm[Hg] [facility] Diastolic blood pressure 2023-02-18 06:46:00 77 mm[Hg] [facility] Heart rate 2023-02-18 06:46:00 79 /min [facility] Respiratory rate 2023-02-18 06:46:00 16 /min [facility] Oxygen saturation in Arterial blood by Pulse oximetry 2023-02-18 06:46:00 95 /min [facility] Body temperature 2023-02-18 03:55:00 36.72 Latanya [facility] Body height 2023-02-18 03:55:00 157.5 cm [facility] Body weight 2023-02-18 03:55:00 102.331 kg [facility] BMI 2023-02-18 03:55:00 41.26 kg/m2 [facility] Systolic blood pressure 2023-02-17 16:20:00 113 mm[Hg] [facility] Diastolic blood pressure 2023-02-17 16:20:00 65 mm[Hg] [facility] Heart rate 2023-02-17 16:20:00 65 /min [facility] Body temperature 2023-02-17 16:20:00 36.83 Latanya [facility] Respiratory rate 2023-02-17 16:20:00 16 /min [facility] Oxygen saturation in Arterial blood by Pulse oximetry 2023-02-17 16:20:00 97 /min [facility] Body weight 2023-02-17 08:50:00 99.973 kg [facility] BMI 2023-02-17 08:50:00 40.31 kg/m2 [facility] Body height 2023-02-16 01:19:00 157.5 cm [facility] Systolic blood pressure 2022-01-10 01:24:00 120 mm[Hg] [facility] Diastolic blood pressure 2022-01-10 01:24:00 76 mm[Hg] [facility] Heart rate 2022-01-10 01:24:00 73 /min [facility] Respiratory rate 2022-01-10 01:24:00 16 /min [facility] Oxygen saturation in Arterial blood by Pulse oximetry 2022-01-10 01:24:00 96 /min [facility] Body weight 2022-01-09 21:39:00 104.327 kg [facility] BMI 2022-01-09 21:39:00 42.07 kg/m2 [facility] Systolic blood pressure 2021-12-14 07:22:00 121 mm[Hg] [facility] Diastolic blood pressure 2021-12-14 07:22:00 86 mm[Hg] [facility] Heart rate 2021-12-14 07:22:00 80 /min [facility] Respiratory rate 2021-12-14 07:22:00 17 /min [facility] Oxygen saturation in Arterial blood by Pulse oximetry 2021-12-14 07:22:00 96 /min [facility] Body temperature 2021-12-14 03:06:00 36.72 Latanya [facility] Body height 2021-12-14 03:06:00 157.5 cm [facility] Body weight 2021-12-14 03:06:00 95.255 kg [facility] BMI 2021-12-14 03:06:00 38.41 kg/m2 [facility] Systolic blood pressure 2021-11-12 04:15:00 112 mm[Hg] [facility] Diastolic blood pressure 2021-11-12 04:15:00 75 mm[Hg] [facility] Heart rate 2021-11-12 04:15:00 92 /min [facility] Body temperature 2021-11-12 04:15:00 36.44 Latanya [facility] Respiratory rate 2021-11-12 04:15:00 18 /min [facility] Oxygen saturation in Arterial blood by Pulse oximetry 2021-11-12 04:15:00 98 /min [facility] Body height 2021-11-12 00:41:00 157.5 cm [facility] Body weight 2021-11-12 00:41:00 95.255 kg [facility] BMI 2021-11-12 00:41:00 38.41 kg/m2 [facility] Systolic blood pressure 2021-09-12 01:31:00 142 mm[Hg] [facility] Diastolic blood pressure 2021-09-12 01:31:00 80 mm[Hg] [facility] Heart rate 2021-09-12 01:31:00 78 /min [facility] Body temperature 2021-09-12 01:31:00 36.72 Latanya [facility] Respiratory rate 2021-09-12 01:31:00 18 /min [facility] Body height 2021-09-12 01:31:00 157.5 cm [facility] Body weight 2021-09-12 01:31:00 99.791 kg [facility] BMI 2021-09-12 01:31:00 40.24 kg/m2 [facility] Oxygen saturation in Arterial blood by Pulse oximetry 2021-09-12 01:31:00 97 /min [facility] Systolic blood pressure 2021-08-15 08:20:00 120 mm[Hg] [facility] Diastolic blood pressure 2021-08-15 08:20:00 74 mm[Hg] [facility] Heart rate 2021-08-15 08:20:00 69 /min [facility] Respiratory rate 2021-08-15 08:20:00 20 /min [facility] Oxygen saturation in Arterial blood by Pulse oximetry 2021-08-15 08:20:00 96 /min [facility] Body temperature 2021-08-15 05:34:00 36.22 Latanya [facility] Body height 2021-08-15 05:34:00 157.5 cm [facility] Body weight 2021-08-15 05:34:00 99.791 kg [facility] BMI 2021-08-15 05:34:00 40.24 kg/m2 [facility] Systolic blood pressure 2021-05-28 10:00:00 122 mm[Hg] [facility] Diastolic blood pressure 2021-05-28 10:00:00 78 mm[Hg] [facility] Heart rate 2021-05-28 10:00:00 75 /min [facility] Respiratory rate 2021-05-28 10:00:00 20 /min [facility] Oxygen saturation in Arterial blood by Pulse oximetry 2021-05-28 10:00:00 99 /min [facility] Body temperature 2021-05-28 05:21:00 36.11 Latanya [facility] Body height 2021-05-28 05:21:00 157.5 cm [facility] Body weight 2021-05-28 05:21:00 99.791 kg [facility] BMI 2021-05-28 05:21:00 40.24 kg/m2 [facility] Systolic blood pressure 2021-04-08 21:55:00 110 mm[Hg] [facility] Diastolic blood pressure 2021-04-08 21:55:00 80 mm[Hg] [facility] Heart rate 2021-04-08 21:55:00 70 /min [facility] Body temperature 2021-04-08 21:55:00 36.28 Latanya [facility] Respiratory rate 2021-04-08 21:55:00 16 /min [facility] Oxygen saturation in Arterial blood by Pulse oximetry 2021-04-08 21:55:00 94 /min [facility] Body height 2021-04-08 03:00:00 157.5 cm [facility] Body weight 2021-04-08 03:00:00 105.688 kg [facility] BMI 2021-04-08 03:00:00 42.62 kg/m2 [facility] Systolic blood pressure 2021-01-12 09:00:00 147 mm[Hg] [facility] Diastolic blood pressure 2021-01-12 09:00:00 71 mm[Hg] [facility] Heart rate 2021-01-12 09:00:00 103 /min [facility] Respiratory rate 2021-01-12 09:00:00 18 /min [facility] Oxygen saturation in Arterial blood by Pulse oximetry 2021-01-12 09:00:00 97 /min [facility] Body temperature 2021-01-12 07:48:00 37.06 Latanya [facility] Body height 2021-01-12 07:48:00 157.5 cm [facility] Body weight 2021-01-12 07:48:00 102.513 kg [facility] BMI 2021-01-12 07:48:00 41.34 kg/m2 [facility] Systolic blood pressure 2020-12-11 01:30:00 136 mm[Hg] [facility] Diastolic blood pressure 2020-12-11 01:30:00 88 mm[Hg] [facility] Heart rate 2020-12-11 01:30:00 99 /min [facility] Respiratory rate 2020-12-11 01:30:00 28 /min [facility] Oxygen saturation in Arterial blood by Pulse oximetry 2020-12-11 01:30:00 97 /min [facility] Body temperature 2020-12-10 22:11:00 36.78 Latanya [facility] Body weight 2020-12-10 22:11:00 99.791 kg [facility] BMI 2020-12-10 22:11:00 40.24 kg/m2 [facility] Systolic blood pressure 2020-12-04 21:30:00 126 mm[Hg] [facility] Diastolic blood pressure 2020-12-04 21:30:00 79 mm[Hg] [facility] Heart rate 2020-12-04 21:30:00 91 /min [facility] Respiratory rate 2020-12-04 21:30:00 20 /min [facility] Oxygen saturation in Arterial blood by Pulse oximetry 2020-12-04 21:30:00 96 /min [facility] Body temperature 2020-12-04 19:49:00 37.06 Latanya [facility] Body height 2020-12-04 19:49:00 157.5 cm [facility] Body weight 2020-12-04 19:49:00 99.791 kg [facility] BMI 2020-12-04 19:49:00 40.24 kg/m2 [facility] Systolic blood pressure 2020-11-04 01:42:00 142 mm[Hg] [facility] Diastolic blood pressure 2020-11-04 01:42:00 100 mm[Hg] [facility] Heart rate 2020-11-04 01:42:00 109 /min [facility] Body temperature 2020-11-04 01:42:00 36.78 Latanya [facility] Respiratory rate 2020-11-04 01:42:00 20 /min [facility] Body weight 2020-11-04 01:42:00 99.791 kg [facility] BMI 2020-11-04 01:42:00 40.24 kg/m2 [facility] Oxygen saturation in Arterial blood by Pulse oximetry 2020-11-04 01:42:00 98 /min [facility] Systolic blood pressure 2020-09-17 15:52:00 138 mm[Hg] [facility] Diastolic blood pressure 2020-09-17 15:52:00 94 mm[Hg] [facility] Heart rate 2020-09-17 15:52:00 98 /min [facility] Body temperature 2020-09-17 15:52:00 36.94 Latanya [facility] Respiratory rate 2020-09-17 15:52:00 20 /min [facility] Body weight 2020-09-17 15:52:00 95.255 kg [facility] BMI 2020-09-17 15:52:00 38.41 kg/m2 [facility] Oxygen saturation in Arterial blood by Pulse oximetry 2020-09-17 15:52:00 97 /min [facility] Systolic blood pressure 2020-09-17 15:52:00 138 mm[Hg] [facility] Diastolic blood pressure 2020-09-17 15:52:00 94 mm[Hg] [facility] Heart rate 2020-09-17 15:52:00 98 /min [facility] Body temperature 2020-09-17 15:52:00 36.94 Latanya [facility] Respiratory rate 2020-09-17 15:52:00 20 /min [facility] Body weight 2020-09-17 15:52:00 95.255 kg [facility] BMI 2020-09-17 15:52:00 38.41 kg/m2 [facility] Oxygen saturation in Arterial blood by Pulse oximetry 2020-09-17 15:52:00 97 /min [facility] Systolic blood pressure 2020-09-07 06:35:00 123 mm[Hg] [facility] Diastolic blood pressure 2020-09-07 06:35:00 56 mm[Hg] [facility] Heart rate 2020-09-07 06:35:00 97 /min [facility] Body temperature 2020-09-07 06:35:00 36.28 Latanya [facility] Respiratory rate 2020-09-07 06:35:00 18 /min [facility] Body weight 2020-09-07 06:35:00 99.791 kg [facility] BMI 2020-09-07 06:35:00 40.24 kg/m2 [facility] Oxygen saturation in Arterial blood by Pulse oximetry 2020-09-07 06:35:00 98 /min [facility] Systolic blood pressure 2020-09-07 06:35:00 123 mm[Hg] [facility] Diastolic blood pressure 2020-09-07 06:35:00 56 mm[Hg] [facility] Heart rate 2020-09-07 06:35:00 97 /min [facility] Body temperature 2020-09-07 06:35:00 36.28 Latanya [facility] Respiratory rate 2020-09-07 06:35:00 18 /min [facility] Body weight 2020-09-07 06:35:00 99.791 kg [facility] BMI 2020-09-07 06:35:00 40.24 kg/m2 [facility] Oxygen saturation in Arterial blood by Pulse oximetry 2020-09-07 06:35:00 98 /min [facility] Systolic blood pressure 2020-08-28 09:00:00 132 mm[Hg] [facility] Diastolic blood pressure 2020-08-28 09:00:00 87 mm[Hg] [facility] Heart rate 2020-08-28 09:00:00 90 /min [facility] Respiratory rate 2020-08-28 09:00:00 20 /min [facility] Oxygen saturation in Arterial blood by Pulse oximetry 2020-08-28 09:00:00 97 /min [facility] Body temperature 2020-08-28 07:59:00 36.72 Latanya [facility] Body height 2020-08-28 07:59:00 157.5 cm [facility] Body weight 2020-08-28 07:59:00 99.791 kg [facility] BMI 2020-08-28 07:59:00 40.24 kg/m2 [facility] Systolic blood pressure 2020-08-28 09:00:00 132 mm[Hg] [facility] Diastolic blood pressure 2020-08-28 09:00:00 87 mm[Hg] [facility] Heart rate 2020-08-28 09:00:00 90 /min [facility] Respiratory rate 2020-08-28 09:00:00 20 /min [facility] Oxygen saturation in Arterial blood by Pulse oximetry 2020-08-28 09:00:00 97 /min [facility] Body temperature 2020-08-28 07:59:00 36.72 Latanya [facility] Body height 2020-08-28 07:59:00 157.5 cm [facility] Body weight 2020-08-28 07:59:00 99.791 kg [facility] BMI 2020-08-28 07:59:00 40.24 kg/m2 [facility] Systolic blood pressure 2020-08-14 19:40:00 135 mm[Hg] [facility] Diastolic blood pressure 2020-08-14 19:40:00 100 mm[Hg] [facility] Heart rate 2020-08-14 19:40:00 68 /min [facility] Body temperature 2020-08-14 19:40:00 37.11 Latanya [facility] Respiratory rate 2020-08-14 19:40:00 19 /min [facility] Oxygen saturation in Arterial blood by Pulse oximetry 2020-08-14 19:40:00 99 /min [facility] Body height 2020-08-14 17:41:00 157.5 cm [facility] Body weight 2020-08-14 17:41:00 99.791 kg [facility] BMI 2020-08-14 17:41:00 40.24 kg/m2 [facility] Systolic blood pressure 2020-08-14 19:40:00 135 mm[Hg] [facility] Diastolic blood pressure 2020-08-14 19:40:00 100 mm[Hg] [facility] Heart rate 2020-08-14 19:40:00 68 /min [facility] Body temperature 2020-08-14 19:40:00 37.11 Latanya [facility] Respiratory rate 2020-08-14 19:40:00 19 /min [facility] Oxygen saturation in Arterial blood by Pulse oximetry 2020-08-14 19:40:00 99 /min [facility] Body height 2020-08-14 17:41:00 157.5 cm [facility] Body weight 2020-08-14 17:41:00 99.791 kg [facility] BMI 2020-08-14 17:41:00 40.24 kg/m2 [facility] Systolic blood pressure 2020-08-11 04:00:00 106 mm[Hg] [facility] Diastolic blood pressure 2020-08-11 04:00:00 92 mm[Hg] [facility] Heart rate 2020-08-11 04:00:00 90 /min [facility] Respiratory rate 2020-08-11 04:00:00 16 /min [facility] Oxygen saturation in Arterial blood by Pulse oximetry 2020-08-11 04:00:00 99 /min [facility] Body temperature 2020-08-11 03:12:56 37.72 Latanya [facility] Body height 2020-08-11 00:19:00 157.5 cm [facility] Body weight 2020-08-11 00:19:00 99.791 kg [facility] BMI 2020-08-11 00:19:00 40.24 kg/m2 [facility] Systolic blood pressure 2020-08-11 04:00:00 106 mm[Hg] [facility] Diastolic blood pressure 2020-08-11 04:00:00 92 mm[Hg] [facility] Heart rate 2020-08-11 04:00:00 90 /min [facility] Respiratory rate 2020-08-11 04:00:00 16 /min [facility] Oxygen saturation in Arterial blood by Pulse oximetry 2020-08-11 04:00:00 99 /min [facility] Body temperature 2020-08-11 03:12:56 37.72 Latanya [facility] Body height 2020-08-11 00:19:00 157.5 cm [facility] Body weight 2020-08-11 00:19:00 99.791 kg [facility] BMI 2020-08-11 00:19:00 40.24 kg/m2 [facility] Systolic blood pressure 2020-08-07 13:16:00 100 mm[Hg] [facility] Diastolic blood pressure 2020-08-07 13:16:00 69 mm[Hg] [facility] Heart rate 2020-08-07 13:16:00 99 /min [facility] Body temperature 2020-08-07 13:16:00 36.67 Latanya [facility] Respiratory rate 2020-08-07 13:16:00 18 /min [facility] Body weight 2020-08-07 13:16:00 95.255 kg [facility] BMI 2020-08-07 13:16:00 38.41 kg/m2 [facility] Oxygen saturation in Arterial blood by Pulse oximetry 2020-08-07 13:16:00 99 /min [facility] Systolic blood pressure 2020-08-07 13:16:00 100 mm[Hg] [facility] Diastolic blood pressure 2020-08-07 13:16:00 69 mm[Hg] [facility] Heart rate 2020-08-07 13:16:00 99 /min [facility] Body temperature 2020-08-07 13:16:00 36.67 Latanya [facility] Respiratory rate 2020-08-07 13:16:00 18 /min [facility] Body weight 2020-08-07 13:16:00 95.255 kg [facility] BMI 2020-08-07 13:16:00 38.41 kg/m2 [facility] Oxygen saturation in Arterial blood by Pulse oximetry 2020-08-07 13:16:00 99 /min [facility] Systolic blood pressure 2020-07-01 02:00:00 136 mm[Hg] [facility] Diastolic blood pressure 2020-07-01 02:00:00 85 mm[Hg] [facility] Heart rate 2020-07-01 02:00:00 73 /min [facility] Respiratory rate 2020-07-01 02:00:00 20 /min [facility] Oxygen saturation in Arterial blood by Pulse oximetry 2020-07-01 02:00:00 97 /min [facility] Body temperature 2020-06-30 23:36:00 36.56 Latanya [facility] Body height 2020-06-30 23:36:00 157.5 cm [facility] Body weight 2020-06-30 23:36:00 95.255 kg [facility] BMI 2020-06-30 23:36:00 38.41 kg/m2 [facility] Systolic blood pressure 2020-07-01 02:00:00 136 mm[Hg] [facility] Diastolic blood pressure 2020-07-01 02:00:00 85 mm[Hg] [facility] Heart rate 2020-07-01 02:00:00 73 /min [facility] Respiratory rate 2020-07-01 02:00:00 20 /min [facility] Oxygen saturation in Arterial blood by Pulse oximetry 2020-07-01 02:00:00 97 /min [facility] Body temperature 2020-06-30 23:36:00 36.56 Latanya [facility] Body height 2020-06-30 23:36:00 157.5 cm [facility] Body weight 2020-06-30 23:36:00 95.255 kg [facility] BMI 2020-06-30 23:36:00 38.41 kg/m2 [facility] Systolic blood pressure 2020-06-28 21:57:00 151 mm[Hg] [facility] Diastolic blood pressure 2020-06-28 21:57:00 88 mm[Hg] [facility] Heart rate 2020-06-28 21:57:00 94 /min [facility] Body temperature 2020-06-28 21:57:00 37.78 Latanya [facility] Respiratory rate 2020-06-28 21:57:00 16 /min [facility] Body height 2020-06-28 21:57:00 157.5 cm [facility] Body weight 2020-06-28 21:57:00 95.255 kg [facility] BMI 2020-06-28 21:57:00 38.41 kg/m2 [facility] Oxygen saturation in Arterial blood by Pulse oximetry 2020-06-28 21:57:00 96 /min [facility] Systolic blood pressure 2020-06-28 21:57:00 151 mm[Hg] [facility] Diastolic blood pressure 2020-06-28 21:57:00 88 mm[Hg] [facility] Heart rate 2020-06-28 21:57:00 94 /min [facility] Body temperature 2020-06-28 21:57:00 37.78 Latanya [facility] Respiratory rate 2020-06-28 21:57:00 16 /min [facility] Body height 2020-06-28 21:57:00 157.5 cm [facility] Body weight 2020-06-28 21:57:00 95.255 kg [facility] BMI 2020-06-28 21:57:00 38.41 kg/m2 [facility] Oxygen saturation in Arterial blood by Pulse oximetry 2020-06-28 21:57:00 96 /min [facility] Systolic blood pressure 2020-06-13 03:40:00 122 mm[Hg] [facility] Diastolic blood pressure 2020-06-13 03:40:00 78 mm[Hg] [facility] Heart rate 2020-06-13 03:40:00 90 /min [facility] Respiratory rate 2020-06-13 03:40:00 18 /min [facility] Oxygen saturation in Arterial blood by Pulse oximetry 2020-06-13 03:40:00 94 /min [facility] Body temperature 2020-06-12 23:39:00 37.22 Latanya [facility] Body weight 2020-06-12 23:39:00 97.07 kg [facility] BMI 2020-06-12 23:39:00 39.14 kg/m2 [facility] Systolic blood pressure 2020-06-13 03:40:00 122 mm[Hg] [facility] Diastolic blood pressure 2020-06-13 03:40:00 78 mm[Hg] [facility] Heart rate 2020-06-13 03:40:00 90 /min [facility] Respiratory rate 2020-06-13 03:40:00 18 /min [facility] Oxygen saturation in Arterial blood by Pulse oximetry 2020-06-13 03:40:00 94 /min [facility] Body temperature 2020-06-12 23:39:00 37.22 Latanya [facility] Body weight 2020-06-12 23:39:00 97.07 kg [facility] BMI 2020-06-12 23:39:00 39.14 kg/m2 [facility] Heart rate 2020-05-17 00:40:00 82 /min [facility] Respiratory rate 2020-05-17 00:40:00 18 /min [facility] Oxygen saturation in Arterial blood by Pulse oximetry 2020-05-17 00:40:00 95 /min [facility] Systolic blood pressure 2020-05-17 00:00:00 137 mm[Hg] [facility] Diastolic blood pressure 2020-05-17 00:00:00 93 mm[Hg] [facility] Body temperature 2020-05-16 23:17:00 37.61 Latanya [facility] Body weight 2020-05-16 23:17:00 97.07 kg [facility] BMI 2020-05-16 23:17:00 39.14 kg/m2 [facility] Heart rate 2020-05-17 00:40:00 82 /min [facility] Respiratory rate 2020-05-17 00:40:00 18 /min [facility] Oxygen saturation in Arterial blood by Pulse oximetry 2020-05-17 00:40:00 95 /min [facility] Systolic blood pressure 2020-05-17 00:00:00 137 mm[Hg] [facility] Diastolic blood pressure 2020-05-17 00:00:00 93 mm[Hg] [facility] Body temperature 2020-05-16 23:17:00 37.61 Latanya [facility] Body weight 2020-05-16 23:17:00 97.07 kg [facility] BMI 2020-05-16 23:17:00 39.14 kg/m2 [facility] Systolic blood pressure 2020-05-15 08:50:00 131 mm[Hg] [facility] Diastolic blood pressure 2020-05-15 08:50:00 80 mm[Hg] [facility] Heart rate 2020-05-15 08:50:00 70 /min [facility] Respiratory rate 2020-05-15 08:50:00 18 /min [facility] Oxygen saturation in Arterial blood by Pulse oximetry 2020-05-15 08:50:00 97 /min [facility] Body temperature 2020-05-15 05:29:00 36.44 Latanya [facility] Body height 2020-05-15 05:29:00 157.5 cm [facility] Body weight 2020-05-15 05:29:00 97.07 kg Simultaneous filing. User may not have seen previous data. [facility] BMI 2020-05-15 05:29:00 39.14 kg/m2 [facility] Systolic blood pressure 2020-05-15 08:50:00 131 mm[Hg] [facility] Diastolic blood pressure 2020-05-15 08:50:00 80 mm[Hg] [facility] Heart rate 2020-05-15 08:50:00 70 /min [facility] Respiratory rate 2020-05-15 08:50:00 18 /min [facility] Oxygen saturation in Arterial blood by Pulse oximetry 2020-05-15 08:50:00 97 /min [facility] Body temperature 2020-05-15 05:29:00 36.44 Latanya [facility] Body height 2020-05-15 05:29:00 157.5 cm [facility] Body weight 2020-05-15 05:29:00 97.07 kg Simultaneous filing. User may not have seen previous data. [facility] BMI 2020-05-15 05:29:00 39.14 kg/m2 [facility] Procedures Procedure Date / Time Performed Performing Clinician Source MAGNESIUM 2024-11-27 08:21:00 [facility] TROPONIN I 2024-11-27 08:21:00 Alexx Kwok [facility] BASIC METABOLIC PANEL (NA, K, CL, CO2, GLUCOSE, BUN, CREATININE, CA) 2024-11-27 08:21:00 Alexx Kwok [facility] LIPID PANEL ([id number])(TOTAL CHOLESTEROL, TRIGLYCERIDES, HDL) 2024-11-27 08:21:00 Alexx Kwok [facility] CBC WITH DIFF 2024-11-27 08:21:00 [facility] 2024-11-27 03:14:00 Alexx Kwok [facility] LIPASE 2024-11-26 23:54:00 [facility] 2024-11-26 23:54[facility] TR[facility] 2024-11-26 23:54:00 Singer Klaudia [facility] COMP. METABOLIC PANEL ([id number]) 2024-11-26 23:54:00 Singer [facility]ud[facility] [place] [facility] WITH DIFF 2024-11-26 23:54:00 Singer [facility] N-TERMINAL PRO-BNP 2024-11-26 23:54:00 Singer [facility] XR CHEST 1 VW 2024-11-26 23:28:51 Singer [facility] HB ECG ROUTINE & RHYTHM STRIP 2024-11-26 22:53:55 Singer [facility] URINALYSIS 2024-11-15 01:45:00 [facility] 2024-11-15 01:45:00 Rosario Rios ra [facility] [place] CT ABDOMEN PELVIS W CONTRAST 2024-11-11 04:01:35 Bob Garcia [facility] [place] POCT TEST 2024-11-11 02:26:00 Bob Garcia [facility] [place] LIPASE 2024-11-11 02:23:00 Bob Garcia [facility] COMP. METABOLIC PANEL ([id number]) 2024-11-11 02:23:00 Bob Garcia [facility] [place] CBC WITH DIFF 2024-11-11 02:23:00 [facility] 2024-11-11 02:23:00 Bob Garcia [facility] MAGNESIUM 2024-11-04 09:46:00 Corinna Cowan [facility] [place] BASIC METABOLIC PANEL (NA, K, CL, CO2, GLUCOSE, BUN, CREATININE, CA) 2024-11-04 09:46:00 Jean Carlos Cowan [facility] [place] CBC WITH DIFF 2024-11-04 09:46:00 Corinna Cowan [facility] [place] MAGNESIUM 2024-11-04 09:46:00 Corinna Cowan [facility] [place] BASIC METABOLIC PANEL (NA, K, CL, CO2, GLUCOSE, BUN, CREATININE, CA) 2024-11-04 09:46:00 Jean Carlos Cowan [facility] [place] CBC WITH DIFF 2024-11-04 09:46:00 Corinna Cowan [facility] [place] CATH PROCEDURE LOG 2024-11-03 20:05:03 Rosario Virk [facility] [place] CATH PROCEDURE LOG 2024-11-03 20:05:03 Rosario Virk [facility] [place] CARDIAC CATHETERIZATION 2024-11-03 19:40:00 Rika Virk [facility] [place] CARDIAC CATHETERIZATION 2024-11-03 19:40:00 Rika Virk [facility] [place] CARDIAC CATHETERIZATION 2024-11-03 19:40:00 Rika Virk [facility] [place] CARDIAC CATHETERIZATION 2024-11-03 19:40:00 Rika Virk [facility] [place] CARDIAC CATHETERIZATION 2024-11-03 19:40:00 Rika Virk [facility] [place] CARDIAC CATHETERIZATION 2024-11-03 19:40:00 Rika Virk [facility] [place] ACTIVATED PARTIAL THRMPLAS MARCIO 2024-11-03 14:13:00 [facility] 2024-11-03 14:13:00 [facility] 2024-11-03 11:08:00 Corinna Cowan [facility] [place] BASIC METABOLIC PANEL (NA, K, CL, CO2, GLUCOSE, BUN, CREATININE, CA) 2024-11-03 11:08:00 Jean Carlos Cowan [facility] [place] MAGNESIUM 2024-11-03 11:08:00 Corinna Cowan [facility] [place] BASIC METABOLIC PANEL (NA, K, CL, CO2, GLUCOSE, BUN, CREATININE, CA) 2024-11-03 11:08:00 Jean Carlos Cowan [facility] [place] CBC WITH DIFF 2024-11-03 09:45:00 Corinna Cowan [facility] CBC WITH DIFF 2024-11-03 09:45:00 Corinna Cowan [facility] [place] ACTIVATED PARTIAL THRMPLAS MARCIO 2024-11-03 07:43:00 Kylah [facility] ACTIVATED PARTIAL THRMPLAS MARCIO 2024-11-03 07:43:00 Kylah [facility] ACTIVATED PARTIAL THRMPLAS MARCIO 2024-11-03 00:54:00 Kylah [facility] ACTIVATED PARTIAL THRMPLAS MARCIO 2024-11-03 00:54:00 Kylah [facility] HB ECG ROUTINE & RHYTHM STRIP 2024-11-02 21:49:21 Rosario Virk [facility] [place] ACTIVATED PARTIAL THRMPLAS MARCIO 2024-11-02 14:41:00 Kylah [facility] ACTIVATED PARTIAL THRMPLAS MARCIO 2024-11-02 14:41:00 Kylah [facility] MAGNESIUM 2024-11-02 08:35:00 Farnaz Nixon [facility] BASIC METABOLIC PANEL (NA, K, CL, CO2, GLUCOSE, BUN, CREATININE, CA) 2024-11-02 08:35:00 [facility] CBC WITH DIFF 2024-11-02 08:35:00 Brantt [facility] ACTIVATED PARTIAL THRMPLAS MARCIO 2024-11-02 08:35:00 [facility] 2024-11-02 08:35:00 Hussain [facility] BASIC METABOLIC PANEL (NA, K, CL, CO2, GLUCOSE, BUN, CREATININE, CA) 2024-11-02 08:35:00 Khoot [facility] CBC WITH DIFF 2024-11-02 08:35:00 Hussain [facility] ACTIVATED PARTIAL THRMPLAS MARCIO 2024-11-02 08:35:00 Kylah [facility] MRSA / MSSA SCREEN BY PCR, [facility] 2024-11-02 02:11:00 [facility] MRSA / MSSA SCREEN BY PCR, [facility] 2024-11-02 02:11:00 Khfabbyt [facility] PHOSPHORUS 2024-11-02 02:08:00 Khfabbyt [facility] TROPONIN I 2024-11-02 02:08:00 Khoot, [facility] ACTIVATED PARTIAL THRMPLAS MARCIO 2024-11-02 02:08:00 Kylah [facility] PHOSPHORUS 2024-11-02 02:08:00 Artoot [facility] TROPONIN I 2024-11-02 02:08:00 Khoot, [facility] ACTIVATED PARTIAL THRMPLAS MARCIO 2024-11-02 02:08:00 Kylah [facility] HB ECG ROUTINE & RHYTHM STRIP 2024-11-01 23:29:25 Khfabbyt [facility] HB ECG ROUTINE & RHYTHM STRIP 2024-11-01 23:29:25 [facility] URINALYSIS 2024-11-01 19:35:00 Susie Brewer [facility] URINE CULTURE 2024-11-01 19:35:00 Susie Brewer [facility] [place] URINALYSIS 2024-11-01 19:35:00 [facility] 2024-11-01 19:35:00 Susie Brewer [facility] [place] PROTHROMBIN TIME / INR 2024-11-01 19:34:00 Parmjit Montero [facility] [place] ACTIVATED PARTIAL THRMPLAS MARCIO 2024-11-01 19:34:00 Zay Montero [facility] [place] PROTHROMBIN TIME / INR 2024-11-01 19:34:00 Parmjit Montero guerrero [facility] [place] ACTIVATED PARTIAL THRMPLAS MARCIO 2024-11-01 19:34:00 [facility] (TTE) COMPLETE W/ CONTRAST 2024-11-01 13:44:00 Viviana [facility] TRANSTHORACIC ECHO (TTE) COMPLETE W/ CONTRAST 2024-11-01 13:44:00 Viviana [facility] TROPONIN I 2024-11-01 13:26:[address] [facility] THYROID STIMULATING HORMONE 2024-11-01 13:26:00 Farnaz Nixon [facility] [place] LIPID PANEL ([id number])(TOTAL CHOLESTEROL, TRIGLYCERIDES, HDL) 2024-11-01 13:26:00 Natasha Hernandes [facility] [place] N-TERMINAL PRO-BNP 2024-11-01 13:26:00 Natasha Hernandes [facility] [place] TROPONIN I 2024-11-01 13:26:[address] [facility] THYROID STIMULATING HORMONE 2024-11-01 13:26:00 Farnaz Nixon [facility] [place] LIPID PANEL ([id number])(TOTAL CHOLESTEROL, TRIGLYCERIDES, HDL) 2024-11-01 13:26:00 Natasha Hernandes [facility] [place] N-TERMINAL PRO-BNP 2024-11-01 13:26:00 Natasha Hernandes [facility] [place] INFLUENZA A/B RSV COVID NAAT 2024-11-01 09:35:00 Edcecilia [facility] LAB ONLY COVID INTERPRETATION 2024-11-01 09:35:00 Ediontamela [facility] INFLUENZA A/B RSV COVID NAAT 2024-11-01 09:35:00 Ediontamela [facility] LAB ONLY COVID INTERPRETATION 2024-11-01 09:35:00 Ediontamela [facility] TROPONIN I 2024-11-01 07:17:[address] [facility] BASIC METABOLIC PANEL (NA, K, CL, CO2, GLUCOSE, BUN, CREATININE, CA) 2024-11-01 07:17:00 Ediontamela [facility] CBC WITH DIFF 2024-11-01 07:17:00 Viviana [facility] GLYCOSYLATED HEMOGLOBIN (A1C) 2024-11-01 07:17:00 Natasha Hernandes [facility] [place] PROCALCITONIN 2024-11-01 07:17:00 Ediontamela [facility] TROPONIN I 2024-11-01 07:17:00 Ediontamela, [facility] BASIC METABOLIC PANEL (NA, K, CL, CO2, GLUCOSE, BUN, CREATININE, CA) 2024-11-01 07:17:00 Ediontamela [facility] CBC WITH DIFF 2024-11-01 07:17:00 Ediontamela [facility] GLYCOSYLATED HEMOGLOBIN (A1C) 2024-11-01 07:17:00 Natasha Hernandes [facility] [place] PROCALCITONIN 2024-11-01 07:17:00 Viviana [facility] XR CHEST 1 VW 2024-11-01 03:19:58 Bob Garcia [facility] XR CHEST 1 VW 2024-11-01 03:19:58 [facility] 2024-11-01 02:53:00 Bob Garcia [facility] TROPONIN I 2024-11-01 02:53:00 Bob Garcia [facility] COMP. METABOLIC PANEL ([id number]) 2024-11-01 02:53:00 Bob Garcia [facility] [place] CBC WITH DIFF 2024-11-01 02:53:00 Bob Garcia [facility] LIPASE 2024-11-01 02:53:00 Bob Garcia [facility] TROPONIN I 2024-11-01 02:53:00 Bob Garcia [facility] COMP. METABOLIC PANEL ([id number]) 2024-11-01 02:53:00 Bob Garcia [facility] [place] CBC WITH DIFF 2024-11-01 02:53:00 Bob Garcia [facility] HB ECG ROUTINE & RHYTHM STRIP 2024-11-01 02:32:05 Bob Garcia [facility] [place] HB ECG ROUTINE & RHYTHM STRIP 2024-11-01 02:32:05 Bob Garcia [facility] [place] CT ABDOMEN PELVIS W CONTRAST 2024-10-24 03:31:17 Juanjose Barker [facility] [place] LIPASE 2024-10-24 01:34:00 Juanjose Barker [facility] COMP. METABOLIC PANEL ([id number]) 2024-10-24 01:34:00 Juanjose Barker [facility] [place] CBC WITH DIFF 2024-10-24 01:34:00 Juanjose Barker [facility] URINALYSIS 2024-10-24 01:34:00 Juanjose Barker [facility] TROPONIN I 2024-10-13 06:39:00 Bob Garcia [facility] LIPASE 2024-10-13 04:20:00 Bob Garcia [facility] TROPONIN I 2024-10-13 04:20:00 Bob Garcia [facility] COMP. METABOLIC PANEL ([id number]) 2024-10-13 04:20:00 Bob Garcia [facility] [place] CBC WITH DIFF 2024-10-13 04:20:00 Bob Garcia [facility] N-TERMINAL PRO-BNP 2024-10-13 04:20:00 Bob Garcia [facility] [place] POCT TEST 2024-10-13 03:46:00 Bob Garcia [facility] [place] URINALYSIS 2024-10-13 03:39:00 Bob Garcia [facility] URINE DRUG (IMMUNOASSAY) - COMPREHENSIVE DRUG SCREEN 2024-07-19 06:11:00 Saleem Edward [facility] [place] URINALYSIS 2024-07-19 06:11:00 Saleem Edward [facility] CT CHEST PULMONARY ANGIOGRAM 2024-07-19 05:46:40 Saleem Edward [facility] [place] MAGNESIUM 2024-07-19 05:08:00 Saleem Edward [facility] TROPONIN I 2024-07-19 05:08:00 Saleem Edward Eleni [facility] COMP. METABOLIC PANEL ([id number]) 2024-07-19 05:08:00 Saleem Edward [facility] [place] CBC WITH DIFF 2024-07-19 05:08:00 Saleem Edward [facility] INFLUENZA A/B RSV COVID NAAT 2024-07-19 05:08:00 Saleem Edward Eleni [facility] [place] N-TERMINAL PRO-BNP 2024-07-19 05:08:00 Saleem Edward Eleni [facility] [place] CT ABDOMEN PELVIS W CONTRAST 2024-07-04 05:47:25 Sandy Garcia [facility] [place] POCT TEST 2024-07-04 05:33:00 Ross Garcia [facility] [place] LIPASE 2024-07-04 03:23:00 [facility] COMP. METABOLIC PANEL ([id number]) 2024-07-04 03:23:[address] [facility]FF 2024-07-04 03:23:00 [facility]24-07-04 03:23:00 Sandy Garcia [facility] CT ABDOMEN PELVIS W CONTRAST 2024-06-15 05:33:[address] [facility] 2024-06-15 04:18:00 Sandy Garcia [facility] LIPASE 2024-06-15 04:14:00 Sandy Garcia [facility] TEST, SERUM 2024-06-15 04:14:00 Laney Garcia [facility] TROPONIN I 2024-06-15 04:14:00 [facility]. METABOLIC PANEL ([id number]) 2024-06-15 04:14:[address] [facility] CBC WITH DIFF 2024-06-15 04:14:00 [facility] 2024-06-07 07:19:00 Bob Garcia [facility] XR CHEST 1 VW 2024-06-07 05:38:37 Bob Garcia [facility] POCT TEST 2024-06-07 05:19:00 Bob Garcia [facility] [place] URINE DRUG (IMMUNOASSAY) - COMPREHENSIVE DRUG SCREEN 2024-06-07 05:18:00 Bob Garcia [facility] [place] TROPONIN I 2024-06-07 04:10:00 Bob Garcia [facility] COMP. METABOLIC PANEL ([id number]) 2024-06-07 04:10:00 Bob Garcia [facility] [place] CBC WITH DIFF 2024-06-07 04:10:00 Bob Garcia [facility] CT HEAD WO CONTRAST 2024-05-19 18:22:43 Rafal Wright [facility] [place] XR ELBOW <3 VW RIGHT 2024-05-18 02:32:12 Tammy Barrera [facility] [place] XR FOREARM 2 VW RIGHT 2024-05-18 02:32:12 Tammy Moralez [facility] [place] XR HAND 3+ VW RIGHT 2024-05-18 02:32:12 Tammy Casanova [facility] [place] CT CERVICAL SPINE WO CONTRAST 2024-05-18 02:11:45 Tammy Roy [facility] [place] CT MAXILLOFACIAL/MANDIBLE WO CONTRAST 2024-05-18 02:11:45 Tammy Roy [facility] [place] POCT TEST 2024-05-08 02:00:00 Saleem Edward [facility] [place] LIPASE 2024-05-08 00:31:00 [facility] MAGNESIUM 2024-05-08 00:31:00 Saleem Edward [facility] TROPONIN I 2024-05-08 00:31:00 Saleem Edward [facility] COMP. METABOLIC PANEL ([id number]) 2024-05-08 00:31:00 Saleem Edward [facility] [place] CBC WITH DIFF 2024-05-08 00:31:00 Saleem Edward [facility] URINALYSIS 2024-05-08 00:31:00 Saleem Edward [facility] CT ABDOMEN PELVIS WO CONTRAST 2024-04-08 23:45:15 Jacque Rojo [facility] [place] POCT TEST 2024-04-08 23:01:00 Judy Rojo [facility] [place] LIPASE 2024-04-08 22:47:00 [facility] COMP. METABOLIC PANEL ([id number]) 2024-04-08 22:47:00 Jacque Rojo [facility] [place] CBC WITH DIFF 2024-04-08 22:47:00 Jacque Rojo [facility] URINALYSIS 2024-04-08 22:47:00 Jacque Rojo [facility] CT ABDOMEN PELVIS W CONTRAST 2023-10-11 04:08:24 Bob Garcia [facility] [place] POCT TEST 2023-10-11 03:40:00 Bob Garcia [facility] [place] LIPASE 2023-10-11 03:25:00 [facility]. METABOLIC PANEL ([id number]) 2023-10-11 03:25:00 Bob Garcia [facility] [place] CBC WITH DIFF 2023-10-11 03:25:00 [facility] 2023-10-11 03:25:00 Bob Garcia [facility] XR KUB 2023-07-02 03:34:07 Roberto Richards [facility] POCT TEST 2023-07-02 02:30:00 Alberta Richards [facility] [place] LIPASE 2023-07-02 02:05:00 Roberto Richards [facility] COMP. METABOLIC PANEL ([id number]) 2023-07-02 02:05:00 Roberto Richards [facility] [place] CBC WITH DIFF 2023-07-02 02:05:00 Roberto Richards [facility] URINALYSIS 2023-07-02 02:05:00 Roberto Richards [facility] URINE DRUG (IMMUNOASSAY) - COMPREHENSIVE DRUG SCREEN W/O REFLEX 2023-07-02 02:05:00 Roberto Richards [facility] [place] CONSENT/REFUSAL FOR DIAGNOSIS AND TREATMENT 2023-07-02 01:43:05 Doctor Unassigned, [place] [facility] [place] LIPASE 2023-05-09 22:47:00 Klaudia Narvaez [facility] COMP. METABOLIC PANEL ([id number]) 2023-05-09 22:47:00 Klaudia Narvaez [facility] [place] CBC WITH DIFF 2023-05-09 22:47:00 Klaudia Narvaez [facility] CONSENT/REFUSAL FOR DIAGNOSIS AND TREATMENT 2023-05-09 22:32:48 Doctor Unassigned, [place] [facility] [place] CT ABDOMEN PELVIS W CONTRAST 2023-04-30 23:47:56 Klaudia Narvaez [facility] [place] COMP. METABOLIC PANEL ([id number]) 2023-04-30 23:08:00 Klaudia Narvaez [facility] [place] CBC WITH DIFF 2023-04-30 23:08:00 Klaudia Narvaez [facility] POCT TEST 2023-04-30 22:59:00 Jaquan Narvaez [facility] [place] URINALYSIS 2023-04-30 22:57:00 [facility] CONSENT/REFUSAL FOR DIAGNOSIS AND TREATMENT 2023-04-30 22:14:38 Doctor Unassigned, [place] [facility] [place] XR ABDOMEN ACUTE SERIES 2023-04-17 02:13:44 Do minal Richards [facility] [place] POCT TEST 2023-04-17 02:11:00 Alberta Richards [facility] [place] LIPASE 2023-04-17 02:04:00 Roberto [facility] TROPONIN I 2023-04-17 02:04:00 Roberto [facility] COMP. METABOLIC PANEL ([id number]) 2023-04-17 02:04:00 Roberto Richards [facility] [place] CBC WITH DIFF 2023-04-17 02:04:00 Roberto Richards [facility] PROTHROMBIN TIME / INR 2023-04-17 02:04:00 Jalen Richards [facility] [place] ACTIVATED PARTIAL THRMPLAS MARCIO 2023-04-17 02:04:00 Roberto Richards [facility] [place] URINALYSIS 2023-04-17 02:04:00 Roberto [facility] N-TERMINAL PRO-BNP 2023-04-17 02:04:00 Roberto Richards [facility] [place] URINE DRUG (IMMUNOASSAY) - COMPREHENSIVE DRUG SCREEN W/O REFLEX 2023-04-17 02:04:00 Roberto Richards [facility] [place] CONSENT/REFUSAL FOR DIAGNOSIS AND TREATMENT 2023-04-17 01:22:36 Doctor Unassigned, [place] [facility] [place] URINALYSIS 2023-04-09 01:02:00 Saleem Edward [facility] LIPASE 2023-04-08 23:15:00 Saleem Edward [facility] MAGNESIUM 2023-04-08 23:15:00 Saleem [facility] TROPONIN I 2023-04-08 23:15:00 Saleem Edward [facility] COMP. METABOLIC PANEL ([id number]) 2023-04-08 23:15:00 Saleem Edward Eleni [facility] [place] CBC WITH DIFF 2023-04-08 23:15:00 Saleem Edward [facility] CONSENT/REFUSAL FOR DIAGNOSIS AND TREATMENT 2023-04-08 21:57:42 Doctor Unassigned, [place] [facility] [place] CT ABDOMEN PELVIS W CONTRAST 2023-03-10 03:38:58 Roberto Richards [facility] [place] POCT TEST 2023-03-10 02:51:00 Alberta Richards [facility] [place] URINALYSIS 2023-03-10 01:49:00 Roberto [facility] LIPASE 2023-03-10 01:46:00 Roberto [facility] COMP. METABOLIC PANEL ([id number]) 2023-03-10 01:46:00 Roberto Richards [facility] [place] CBC WITH DIFF 2023-03-10 01:46:00 Roberto Richards [facility] CONSENT/REFUSAL FOR DIAGNOSIS AND TREATMENT 2023-03-10 01:36:24 Doctor Unassigned, [place] [facility] [place] CONSENT/REFUSAL FOR DIAGNOSIS AND TREATMENT 2023-03-10 01:14:40 Doctor Unassigned, [place] [facility] [place] CT ABDOMEN PELVIS W CONTRAST 2023-03-02 05:16:35 Bob Garcia [facility] [place] POCT TEST 2023-03-02 03:26:00 Bob Garcia [facility] [place] LIPASE 2023-03-02 03:23:00 Bob Garcia [facility] COMP. METABOLIC PANEL ([id number]) 2023-03-02 03:23:00 Bob Garcia [facility] [place] CBC WITH DIFF 2023-03-02 03:23:00 Bob Garcia [facility] URINALYSIS 2023-03-02 03:23:00 Bob Garcia [facility] CONSENT/REFUSAL FOR DIAGNOSIS AND TREATMENT 2023-03-02 00:22:44 Doctor Unassigned, [place] [facility] [place] CONSENT/REFUSAL FOR DIAGNOSIS AND TREATMENT 2023-02-18 03:44:46 Doctor Unassigned, [place] [facility] [place] LIPASE 2023-02-17 09:28:00 Kylah [facility] HEPATIC FUNCTION PANEL ([id number]) (ALB,T.PRO,BILI T,BU/BC,ALT,AST,ALK PHOS) 2023-02-17 09:28:00 Kylah [facility] BASIC METABOLIC PANEL (NA, K, CL, CO2, GLUCOSE, BUN, CREATININE, CA) 2023-02-17 09:28:00 [facility] 2023-02-17 09:28:00 Zay Montero [facility] LIPASE 2023-02-16 18:24:00 [facility] HEPAT[facility] FUN[facility] PANEL ([id number]) (ALB,T.PRO,BILI T,BU/BC,ALT,AST,ALK PHOS) 2023-02-16 18:24:00 Kylah [facility] BASIC METABOLIC PANEL (NA, K, CL, CO2, GLUCOSE, BUN, CREATININE, CA) 2023-02-16 18:24:00 Kylah [facility] CBC WITH DIFF 2023-02-16 18:23:00 [facility]EL[facility] W CONTRAST 2023-02-15 23:29:00 Leeanne Wise [facility] [place] LIPASE 2023-02-15 21:45:00 Leeanne Wise [facility] COMP. METABOLIC PANEL ([id number]) 2023-02-15 21:45:00 Leeanne Wise [facility] [place] CBC WITH DIFF 2023-02-15 21:45:00 Leeanne Wise [facility] D-DIMER 2023-02-15 19:55:00 Leeanne Wise [facility] URINALYSIS 2023-02-15 19:50:00 Leeanne Wise [facility] RAPID INFLUENZA A/B 2023-02-15 19:50:00 Leeanne Wise [facility] [place] COVID-19 (ID NOW RAPID TESTING) 2023-02-15 19:50:00 Leeanne Wise [facility] [place] XR CHEST 1 VW 2023-02-15 19:38:00 Leeanne Wise [facility] ASSIGNMENT OF BENEFITS 2023-02-15 19:26:58 Docto r Unassigned, [place] [facility] [place] HB ECG ROUTINE & RHYTHM STRIP 2023-02-15 19:07:40 Leeanne Wise [facility] [place] NOTICE OF PRIVACY PRACTICES 2023-02-15 18:24:07 Doctor Unassigned, [place] [facility] [place] CONSENT/REFUSAL FOR DIAGNOSIS AND TREATMENT 2023-02-15 18:23:04 Doctor Unassigned, [place] [facility] [place] TROPONIN I 2022-01-10 00:32:00 Melida Longoria [facility] TROPONIN I 2022-01-09 22:17:00 Melida Longoria [facility] BASIC METABOLIC PANEL (NA, K, CL, CO2, GLUCOSE, BUN, CREATININE, CA) 2022-01-09 22:17:00 Melida Longoria [facility] [place] CBC WITH DIFF 2022-01-09 22:17:00 [facility] N-TERMINAL PRO-BNP 2022-01-09 22:17:00 Melida Longoria [facility] [place] XR CHEST 1 VW 2022-01-09 22:11:00 Melida [facility] CONSENT/REFUSAL FOR DIAGNOSIS AND TREATMENT 2022-01-09 21:34:15 Doctor Unassigned, [place] [facility] [place] TROPONIN I 2021-12-14 05:39:00 Wil Mcqueen [facility] XR CHEST 1 VW 2021-12-14 04:39:00 Wil Mcqueen [facility] POCT TEST 2021-12-14 04:20:00 Wil Mcqueen [facility] [place] URINALYSIS 2021-12-14 03:57:00 Wil Mcqueen [facility] LIPASE 2021-12-14 03:43:00 Wil Mcqueen [facility] TROPONIN I 2021-12-14 03:43:00 Wil Mcqueen [facility] FREE T4 2021-12-14 03:43:00 Wil Mcqueen [facility] THYROID STIMULATING HORMONE 2021-12-14 03:43:00 Wil Mcqueen [facility] [place] COMP. METABOLIC PANEL ([id number]) 2021-12-14 03:43:00 Wil Mcqueen [facility] [place] CBC WITH DIFF 2021-12-14 03:43:00 Wil Mcqueen [facility] FREE T3 2021-12-14 03:43:00 Wil [facility] CONSENT/REFUSAL FOR DIAGNOSIS AND TREATMENT 2021-12-14 02:58:21 Doctor Unassigned, [place] [facility] [place] TROPONIN I 2021-11-12 03:04:00 Apple Wang [facility] POCT TEST 2021-11-12 02:56:00 Tra Wang [facility] [place] URINE DRUG (IMMUNOASSAY) - COMPREHENSIVE DRUG SCREEN 2021-11-12 02:30:00 Apple Wang [facility] URINALYSIS 2021-11-12 02:30:00 Apple Wang [facility] XR CHEST 2 VW 2021-11-12 01:45:03 Apple Wang [facility] LIPASE 2021-11-12 01:34:00 Apple Wang [facility] TROPONIN I 2021-11-12 01:34:00 Apple Wang [facility] COMP. METABOLIC PANEL ([id number]) 2021-11-12 01:34:00 Apple Wang [facility] CBC WITH DIFF 2021-11-12 01:34:00 Apple Wang [facility] N-TERMINAL PRO-BNP 2021-11-12 01:34:00 Mckinley Wang [facility] CONSENT/REFUSAL FOR DIAGNOSIS AND TREATMENT 2021-11-12 00:36:34 Doctor Unassigned, [place] [facility] CT ABDOMEN PELVIS W CONTRAST 2021-09-12 02:49:43 Apple Wang [facility] COVID-19 (ID NOW RAPID TESTING) 2021-09-12 02:23:00 Apple Wang [facility] POCT TEST 2021-09-12 02:21:00 Tra Wang [facility] POCT TEST 2021-09-12 01:45:00 Bob Garcia [facility] URINALYSIS 2021-09-12 01:43:00 Bob Garcia [facility] LIPASE 2021-09-12 01:40:00 Bob Garcia [facility] COMP. METABOLIC PANEL ([id number]) 2021-09-12 01:40:00 Bob Garcia [facility] CBC WITH DIFF 2021-09-12 01:40:00 Bob Garcia [facility] CONSENT/REFUSAL FOR DIAGNOSIS AND TREATMENT 2021-09-12 01:26:55 Doctor Unassigned, [place] [facility] XR LUMBAR SPINE 1 VW 2021-08-15 07:03:00 Angeles Garcia i [facility] URINALYSIS 2021-08-15 06:35:00 Bob Garcia [facility] POCT TEST 2021-08-15 06:35:00 Bob Garcia [facility] NOTICE OF PRIVACY PRACTICES 2021-08-15 06:01:56 Doctor Unassigned, [place] [facility] CONSENT/REFUSAL FOR DIAGNOSIS AND TREATMENT 2021-08-15 05:25:54 Doctor Unassigned, [place] [facility] TROPONIN I 2021-05-28 07:50:00 Cem Choi [facility] D-DIMER 2021-05-28 07:05:00 Cem Choi [facility] XR CHEST 2 VW 2021-05-28 05:46:00 Cem Choi [facility] POCT TEST 2021-05-28 05:32:00 Cem Choi [facility] LIPASE 2021-05-28 05:29:00 Cem Choi [facility] TROPONIN I 2021-05-28 05:29:00 Cem Choi [facility] COMP. METABOLIC PANEL ([id number]) 2021-05-28 05:29:00 [facility]FF 2021-05-28 05:29:00 Cem Choi [facility] N-TERMINAL PRO-BNP 2021-05-28 05:29:00 Cem Choi [facility] COVID-19 (ID NOW RAPID TESTING) 2021-05-28 05:29:00 Cem Choi [facility] TROPONIN I 2021-04-08 10:01:00 Apple Page [facility] BASIC METABOLIC PANEL (NA, K, CL, CO2, GLUCOSE, BUN, CREATININE, CA) 2021-04-08 10:01:00 Apple Page [facility] CBC WITH DIFF 2021-04-08 10:01:00 Apple Page [facility] TROPONIN I 2021-04-08 04:12:00 Apple Page [facility] XR CHEST 1 VW 2021-04-07 22:33:33 Roberto Richards [facility] LIPASE 2021-04-07 21:52:00 [facility] MAGNESIUM 2021-04-07 21:52:00 Apple Page [facility] TROPONIN I 2021-04-07 21:52:00 [facility] THYROID STIMULATING HORMONE 2021-04-07 21:52:00 Apple Page [facility] COMP. METABOLIC PANEL (74807) 2021-04-07 21:52:00 Roberto Richards [facility] LIPID PANEL (31475)(TOTAL CHOLESTEROL, TRIGLYCERIDES, HDL) 2021-04-07 21:52:00 Apple Page [facility] CBC WITH DIFF 2021-04-07 21:52:00 Roberto Richards [facility] GLYCOSYLATED HEMOGLOBIN (A1C) 2021-04-07 21:52:00 Apple Page [facility] PROTHROMBIN TIME / INR 2021-04-07 21:52:00 Jalen Richards [facility] ACTIVATED PARTIAL THRMPLAS MARCIO 2021-04-07 21:52:00 Roberto Richards [facility] N-TERMINAL PRO-BNP 2021-04-07 21:52:00 Roberto Richards [facility] COVID-19 (ID NOW RAPID TESTING) 2021-04-07 21:51:00 Roberto Richards [facility] HB ECG ROUTINE & RHYTHM STRIP 2021-04-07 21:38:41 [facility] FOR [facility]IS AND TREATMENT 2021-04-07 21:17:47 Doctor Unassigned, [place] [facility] CT ABDOMEN PELVIS WO CONTRAST 2021-01-12 08:10:17 Klaudia Narvaez [facility] POCT TEST 2021-01-12 08:02:00 Jaquan Narvaez [facility] URINALYSIS 2021-01-12 07:58:00 Klaudia Narvaez [facility] COMP. METABOLIC PANEL ([id number]) 2021-01-12 07:56:00 Klaudia Narvaez [facility] CBC WITH DIFF 2021-01-12 07:56:00 Klaudia Narvaez [facility] TROPONIN I 2020-12-11 00:47:00 [facility] 2020-12-10 22:40:57 Bal Hassan [facility] POCT TEST 2020-12-10 22:32:00 Suzanna Hassan [facility] URINALYSIS 2020-12-10 22:30:00 [facility] 2020-12-10 22:24:00 [facility] 2020-12-10 22:24:00 Mo [facility] HEPATIC FUNCTION PANEL ([id number]) (ALB,T.PRO,BILI T,BU/BC,ALT,AST,ALK PHOS) 2020-12-10 22:24:00 Mo [facility] BASIC METABOLIC PANEL (NA, K, CL, CO2, GLUCOSE, BUN, CREATININE, CA) 2020-12-10 22:24:00 [facility]FF 2020-12-10 22:24:00 Bal Hassan [facility] D-DIMER 2020-12-10 22:24:00 Mo [facility] N-TERMINAL PRO-BNP 2020-12-10 22:24:00 Mirtha Hassan [facility] POCT TEST 2020-12-04 21:18:00 [facility] 2020-12-04 21:17:00 [facility] LIPASE 2020-12-04 20:20:00 Hernan [facility] TROPONIN I 2020-12-04 20:20:00 Hernan [facility] HEPATIC FUNCTION PANEL (73147) (ALB,T.PRO,BILI T,BU/BC,ALT,AST,ALK PHOS) 2020-12-04 20:20:00 [facility] BASIC METABOLIC PANEL (NA, K, CL, CO2, GLUCOSE, BUN, CREATININE, CA) 2020-12-04 20:20:00 [facility] CBC WITH DIFF 2020-12-04 20:20:00 Tremaine [facility] XR CHEST 1 VW 2020-12-04 20:16:54 [facility] XR ANKLE 3+ VW LEFT 2020-12-04 20:16:54 Hernan [facility] CONSENT/REFUSAL FOR DIAGNOSIS AND TREATMENT 2020-12-04 19:43:45 Doctor Unassigned, [place] XR CHEST 1 VW 2020-11-04 02:24:02 Bob Garcia [facility] URINE DRUG (IMMUNOASSAY) - 4 ER PANEL 2020-11-04 02:19:00 Bob Garcia [facility] URINALYSIS 2020-11-04 02:19:00 Bob Garcia [facility] LIPASE 2020-11-04 02:16:00 Bob Garcia [facility] TROPONIN I 2020-11-04 02:16:00 Bob Garcia [facility] COMP. METABOLIC PANEL ([id number]) 2020-11-04 02:16:00 Bob Garcia [facility] CBC WITH DIFF 2020-11-04 02:16:00 Bob Garcia [facility] PROTHROMBIN TIME / INR 2020-11-04 02:16:00 Lucia Garcia [facility] ACTIVATED PARTIAL THRMPLAS MARCIO 2020-11-04 02:16:00 Bob Garcia [facility] CONSENT/REFUSAL FOR DIAGNOSIS AND TREATMENT 2020-11-04 01:11:16 Doctor Unassigned, [place] [facility] XR CHEST 1 VW 2020-09-17 17:32:21 Drever, Leeanne G [facility] RAPID STREP SCREEN FOR GROUP A 2020-09-17 16:31:00 Leeanne Wise [facility] COVID-19 (ID NOW RAPID TESTING) 2020-09-17 16:31:00 Leeanne Wise [facility] NOTICE OF PRIVACY PRACTICES 2020-09-17 15:47:38 Doctor Unassigned, [place] [facility] CONSENT/REFUSAL FOR DIAGNOSIS AND TREATMENT 2020-09-17 15:47:07 Doctor Unassigned, [place] [facility] XR FOREARM 2 VW LEFT 2020-09-07 06:59:53 Saleem Edward [facility] XR HAND 3+ VW LEFT 2020-09-07 06:59:53 Saleem Edward [facility] NOTICE OF PRIVACY PRACTICES 2020-09-07 06:06:09 Doctor Unassigned, [place] CONSENT/REFUSAL FOR DIAGNOSIS AND TREATMENT 2020-09-07 06:03:10 Doctor Unassigned, [place] [facility] CT ABDOMEN PELVIS W CONTRAST 2020-08-28 09:16:08 Bob Garcia [facility] POCT TEST 2020-08-28 08:45:00 Bob Garcia [facility] URINALYSIS 2020-08-28 08:43:00 Bob Garcia [facility] LIPASE 2020-08-28 08:09:00 Bob Garcia [facility] COMP. METABOLIC PANEL ([id number]) 2020-08-28 08:09:00 Bob Garcia [facility] CBC WITH DIFF 2020-08-28 08:09:00 Bob Garcia [facility] XR CHEST 1 VW 2020-08-14 18:10:03 Best [facility] LIPASE 2020-08-14 17:58:00 Best Taylor [facility] TROPONIN I 2020-08-14 17:58:00 Best Taylor [facility] COMP. METABOLIC PANEL ([id number]) 2020-08-14 17:58:00 Best Taylor [facility] CBC WITH DIFF 2020-08-14 17:58:00 Best Taylor [facility] URINALYSIS 2020-08-14 17:58:00 [facility] LACTIC ACID WHOLE BLOOD 2020-08-14 17:58:00 Sophie Taylor [facility] ADC / LCC - DRUG SCREEN TRIAGE 2020-08-14 17:58:00 Best Taylor [facility] CONSENT/REFUSAL FOR DIAGNOSIS AND TREATMENT 2020-08-14 17:33:16 Doctor Unassigned, [place] [facility] CT ABDOMEN PELVIS WO CONTRAST 2020-08-11 04:11:07 Best Taylor [facility] XR CHEST 1 VW 2020-08-11 03:56:48 Best Taylor [facility] POCT TEST 2020-08-11 03:10:00 Best Taylor [facility] BLOOD CULTURE SCREEN 2020-08-11 02:01:00 Best Taylor [facility] BLOOD CULTURE SCREEN 2020-08-11 01:45:00 Best Taylor [facility] LIPASE 2020-08-11 01:45:00 Best Taylor [facility] TROPONIN I 2020-08-11 01:45:00 Best Taylor [facility] HEPATIC FUNCTION PANEL ([id number]) (ALB,T.PRO,BILI T,BU/BC,ALT,AST,ALK PHOS) 2020-08-11 01:45:00 Best Taylor [facility] BASIC METABOLIC PANEL (NA, K, CL, CO2, GLUCOSE, BUN, CREATININE, CA) 2020-08-11 01:45:00 Best Taylor [facility] CBC WITH DIFF 2020-08-11 01:45:00 Best Taylor [facility] URINALYSIS 2020-08-11 01:45:00 Best Taylor [facility] LACTIC ACID WHOLE BLOOD 2020-08-11 01:45:00 Sophie Taylor [facility] COVID-19 (ID NOW RAPID TESTING) 2020-08-11 01:45:00 Best Taylor [facility] CONSENT/REFUSAL FOR DIAGNOSIS AND TREATMENT 2020-08-11 00:12:54 Doctor Unassigned, [place] [facility] XR FOREARM 2 VW LEFT 2020-08-07 14:03:06 Unique Richards [facility] COVID-19 (ID NOW RAPID TESTING) 2020-08-07 13:35:00 Roberto Richards [facility] NOTICE OF PRIVACY PRACTICES 2020-08-07 13:13:25 Doctor Unassigned, [place] [facility] CONSENT/REFUSAL FOR DIAGNOSIS AND TREATMENT 2020-08-07 13:11:06 Doctor Unassigned, [place] [facility] CONSENT/REFUSAL FOR DIAGNOSIS AND TREATMENT 2020-08-07 13:10:57 Doctor Unassigned, [place] [facility] TROPONIN I 2020-07-01 02:03:[address] POCT TEST 2020-07-01 00:51:00 Jessica [facility] URINALYSIS 2020-07-01 00:48:[address] [facility] CBC WITH DIFF 2020-07-01 00:12:00 Abdias Robertson [facility] EXTRA TUBE LT. BLUE 2020-07-01 00:12:[address] [facility] LIPASE 2020-07-01 00:09:[address] [facility] TROPONIN I 2020-07-01 00:09:[address] [facility] BASIC METABOLIC PANEL (NA, K, CL, CO2, GLUCOSE, BUN, CREATININE, CA) 2020-07-01 00:09:00 Jessica [facility] ADC,CLC OR LCC ONLY - INFLUENZA A & B DIRECT ANTIGEN 2020-07-01 00:09:00 Jessica, Cynise [facility] N-TERMINAL PRO-BNP 2020-07-01 00:09:00 Abdias Robertson [facility] XR CHEST 1 VW 2020-07-01 00:07:07 [facility] OF PRIVACY PRACTICES 2020-06-30 23:27:46 Doctor Unassigned, [place] [facility] CT CERVICAL SPINE WO CONTRAST 2020-06-28 23:12:00 Klaudia Narvaez [facility] CONSENT/REFUSAL FOR DIAGNOSIS AND TREATMENT 2020-06-28 21:52:44 Doctor Unassigned, [place] [facility] POCT TEST 2020-06-13 01:50:00 Leeanne Wise [facility] XR CHEST 1 VW 2020-06-13 01:18:17 Leeanne Wise [facility] URINALYSIS 2020-06-13 00:34:00 Mehnaz [facility] Kristin [facility] COVID-19 (ID NOW RAPID TESTING) 2020-06-13 00:34:00 Leeanne Wise [facility] LIPASE 2020-06-13 00:33:00 Mehnaz [facility] Kristin [facility] TROPONIN I 2020-06-13 00:33:00 Mehnaz [facility] Kristin [facility] HEPATIC FUNCTION PANEL ([id number]) (ALB,T.PRO,BILI T,BU/BC,ALT,AST,ALK PHOS) 2020-06-13 00:33:00 Leeanne Wise [facility] BASIC METABOLIC PANEL (NA, K, CL, CO2, GLUCOSE, BUN, CREATININE, CA) 2020-06-13 00:33:00 Leeanne Wise [facility] CBC WITH DIFF 2020-06-13 00:33:00 Leeanne Wise [facility] D-DIMER 2020-06-13 00:33:00 Leeanne Wise [facility] CONSENT/REFUSAL FOR DIAGNOSIS AND TREATMENT 2020-06-12 23:27:48 Doctor Unassigned, [place] [facility] COVID-19 (ID NOW RAPID TESTING) 2020-05-16 23:50:00 Bushra Rios [facility] LIPASE 2020-05-16 23:21:00 [facility] ([id number]) (ALB,T.PRO,BILI T,BU/BC,ALT,AST,ALK PHOS) 2020-05-16 23:21:00 Bushra Rios [facility] BASIC METABOLIC PANEL (NA, K, CL, CO2, GLUCOSE, BUN, CREATININE, CA) 2020-05-16 23:21:00 Bushra Rios [facility] CBC WITH DIFF 2020-05-16 23:21:00 [facility] ACETAMINOPHEN 2020-05-15 07:42:00 Roberto Richards [facility] CT ABDOMEN PELVIS W CONTRAST 2020-05-15 06:56:53 Roberto Richards [facility] CT HEAD WO CONTRAST 2020-05-15 06:56:27 Alberta Richards [facility] POCT TEST 2020-05-15 05:53:00 Alberta Richards [facility] LIPASE 2020-05-15 05:52:00 Roberto Richards [facility] HEPATIC FUNCTION PANEL ([id number]) (ALB,T.PRO,BILI T,BU/BC,ALT,AST,ALK PHOS) 2020-05-15 05:52:00 Roberto Richards [facility] BASIC METABOLIC PANEL (NA, K, CL, CO2, GLUCOSE, BUN, CREATININE, CA) 2020-05-15 05:52:00 Roberto Richards [facility] ETHANOL 2020-05-15 05:52:00 Roberto Richards [facility] CBC WITH DIFF 2020-05-15 05:52:00 Roberto Richards [facility] PROTHROMBIN TIME / INR 2020-05-15 05:52:00 Jalen Richards [facility] ACTIVATED PARTIAL THRMPLAS MARCIO 2020-05-15 05:52:00 Roberto Richards [facility] URINALYSIS 2020-05-15 05:52:00 Roberto Richards [facility] ADC / LCC - DRUG SCREEN TRIAGE 2020-05-15 05:52:00 Roberto Richards [facility] NOTICE OF PRIVACY PRACTICES 2020-05-15 05:12:38 Doctor Unassigned, [place] [facility] CONSENT/REFUSAL FOR DIAGNOSIS AND TREATMENT 2020-05-15 05:12:26 Doctor Unassigned, [place] [facility] Encounters Start Date/Time End Date/Time Encounter Type Admission Type Attending [facility] Care Department Encounter ID Source 2025-02-15 10:00:00 2025-02-15 10:00:00 Outpatient CHRISTINA PAGE KELLEE DORMAN [id number] [facility] 2025-01-22 10:20:00 2025-01-22 10:20:00 Outpatient CYNTHIA ROMEO KELLEE DORMAN [id number] [facility] 2024-12-17 10:00:00 2024-12-17 10:00:00 Outpatient JODEEPASHA NEO YIP KELLEE DORMAN [id number] [facility] 2024-12-02 13:30:00 2024-12-02 13:30:00 Outpatient RIDDHI MONTES [id number] [facility] 2024-12-02 09:30:00 2024-12-02 09:30:00 Outpatient EM CATHY KELLEE DORMAN [id number] [facility] 2024-12-01 00:00:00 2024-12-01 09:53:20 Transition of Care Piper Mercedes Antoinette [address] [id number] [id number] [facility] 2024-11-26 17:54:00 2024-11-27 13:31:00 Hospital Encounter ALEXX WAGNER [facility] [id number] [facility] 2024-11-27 00:00:00 2024-11-27 00:00:00 Outpatient KELLEE DORMAN [id number] [facility] 2024-11-20 00:00:00 2024-11-20 00:00:00 Outpatient RIDDHI MONTES [id number] [facility] 2024-11-18 13:15:00 2024-11-18 13:15:00 Outpatient TYLER MAN KELLEE DORMAN [id number] [facility] 2024-11-16 00:00:00 2024-11-16 00:00:00 Outpatient RIDDHI MONTES KELLEE DORMAN [id number] [facility] 2024-11-15 10:15:00 2024-11-15 10:15:00 Outpatient NEIL SHULTZ KELLEE DORMAN [id number] [facility] 2024-11-14 20:45:00 2024-11-14 22:18:00 Emergency X BUSHRA RIOS SANDRA [facility] E[facility] [id number] [facility] 2024-11-14 20:45:00 2024-11-14 22:18:00 Emergency Bushra Rios [facility] [id number] [id number] [id number] [id number] [facility] 2024-11-14 00:00:00 2024-11-14 00:00:00 Outpatient JYOTI RIDDHI DORMAN [id number] [facility] 2024-11-10 19:56:00 2024-11-11 01:04:00 Emergency X TRACYPAULYCHUY BOB BURTON [facility] ERT [id number] [facility] 2024-11-10 19:56:00 2024-11-11 01:04:00 Emergency TracypaulychuyBob [facility] ..840.114 [id number] [id number] [id number] [facility] 2024-11-10 13:30:00 2024-11-10 13:30:00 Outpatient MARLINLee RIDDHI DORMAN [id number] [facility] 2024-11-10 13:30:00 2024-11-10 13:30:00 Outpatient JYOTI RIDDHI DORMAN [id number] [facility] 2024-11-05 00:00:00 2024-11-05 09:33:29 Transition of Care Piper Mercedes Antoinette [address] [id number] [id number] [id number] [facility] 2024-10-31 21:29:00 2024-11-04 15:00:00 Inpatient X KAUR SANDRA [facility]ASH[facility] [id number] [facility] 2024-10-31 21:29:00 2024-11-04 15:00:00 Hospital Encounter Bob Garcia Jelani Al Hemyari, Bashar Khan, Rizwan [facility] [id number] [id number] [id number] [facility] 2024-11-03 18:20:00 2024-11-03 19:20:00 Surgery Dane Jurado [facility] [id number] [id number] [id number] [id number] [facility] 2024-11-02 00:00:00 2024-11-02 00:00:00 Outpatient KELLEE DORMAN [id number] [facility] 2024-11-02 00:00:00 2024-11-02 00:00:00 Outpatient KELLEE DORMAN [id number] [facility] 2024-10-28 14:15:00 2024-10-28 14:15:00 Outpatient TYLER MAN [id number] [facility] 2024-10-26 11:30:00 2024-10-26 11:30:00 Outpatient FLORINDA REYES [id number] [facility] 2024-10-23 20:18:00 2024-10-23 23:54:00 Emergency X VASUT, JUANJOSE HARMON [facility] ERT [id number] [facility] 2024-10-23 20:18:00 2024-10-23 23:54:00 Emergency Juanjose Barker [facility] [id number] 350.1.13.10 4.2.7.2.686 [id number] [facility] 2024-10-23 10:30:00 2024-10-23 10:30:00 Outpatient RIDDHI MONTES [id number] [facility] 2024-10-19 00:00:00 2024-10-19 00:00:00 Outpatient RIDDHI MONTES [id number] [facility] 2024-10-14 00:00:00 2024-10-14 00:00:00 Outpatient KELLEE DORMAN [id number] [facility] 2024-10-12 22:30:00 2024-10-13 02:45:00 Emergency X BOB GARCIA WAKILI [facility] [id number] [facility] 2024-10-12 22:30:00 2024-10-13 02:45:00 Emergency Bob Garcia [facility] [id number] [id number] [id number] [id number] [facility] 2024-09-23 13:30:00 2024-09-23 13:30:00 Outpatient GISELLE OSORIO [id number] [facility] 2024-09-23 00:00:00 2024-09-23 00:00:00 Outpatient KELLEE DORMAN [id number] [facility] 2024-09-17 00:00:00 2024-09-17 00:00:00 Outpatient MD KELLEE CHOI [id number] [facility] 2024-09-15 11:15:00 2024-09-15 11:15:00 Outpatient KELLEE DORMAN [id number] [facility] 2024-09-15 10:45:00 2024-09-15 10:45:00 Outpatient [facility]ELLEE KELLEE [id number] [facility]24-[facility] 10:15:00 2024-09-15 10:15:00 Outpatient KELLEE KELLEE [id number] [facility] 2024-09-15 07:30:00 2024-09-15 07:30:00 Outpatient KELLEE DORMAN [id number] [facility] 2024-09-15 00:00:00 2024-09-15 00:00:00 Outpatient JOGISELLE DIETRICH KELLEE DORMAN [id number] [facility] 2024-09-06 00:00:00 2024-09-06 00:00:00 Outpatient RIDDHI MONTES [id number] [facility] 2024-09-01 00:00:00 2024-09-01 00:00:00 Outpatient RIDDHI MONTES [id number] [facility] 2024-08-27 00:00:00 2024-08-27 00:00:00 Outpatient SMITHCONRADO [id number] [facility] 2024-08-20 16:45:00 2024-08-20 16:45:[address] JÚNIOR DORMAN [id number] [facility] 2024-08-18 10:00:00 2024-08-18 10:00:00 Outpatient RIDDHI MONTES [id number] [facility] 2024-08-05 15:30:00 2024-08-05 15:30:00 Outpatient SMITHCONRADO [id number] [facility] 2024-08-03 00:00:00 2024-08-03 00:00:00 Outpatient RIDDHI MONTES [id number] [facility] 2024-07-18 22:48:00 2024-07-19 01:24:00 Emergency X Saleem EDWARD K [facility] [id number] [facility] 2024-07-18 22:48:00 2024-07-19 01:24:00 Emergency Saleem Edward [facility] [id number] [id number] [facility] 2024-07-15 00:00:00 2024-07-15 00:00:00 Outpatient MARLINL, RIDDHI DORMAN [id number] [facility] 2024-07-10 00:00:00 2024-07-10 00:00:00 Outpatient MARLINL, RIDDHI DORMAN [id number] [facility] 2024-07-09 00:00:00 2024-07-09 00:00:00 Outpatient RADIOLOGY, DEPT KELLEE DORMAN [id number] [facility] 2024-07-09 00:00:00 2024-07-09 00:00:00 Outpatient RADIOLOGY, DEPT KELLEE DORMAN [id number] [facility] 2024-07-07 00:00:00 2024-07-07 00:00:00 Outpatient MD KELLEE CHOI [id number] [facility] 2024-07-06 07:00:00 2024-07-06 07:00:00 Outpatient KELLEE DORMAN [id number] [facility] 2024-07-06 00:00:00 2024-07-06 00:00:00 Outpatient GISELLE OSORIO [id number] [facility] 2024-07-03 19:56:00 2024-07-04 01:32:00 Emergency X ASHWINI, SANDY MIRANDA [facility] ERT [id number] [facility] 2024-07-03 19:56:00 2024-07-04 01:32:00 Emergency Sandy Garcia [facility] 1.2.840.114 350.1.13.10 4.2.7.2.686 [id number] [id number] [facility] 2024-06-21 02:04:00 2024-06-21 02:59:00 Emergency X VINCENT, SANDY MIRANDAMB ERT [id number] [facility] 2024-06-21 02:04:00 2024-06-21 02:59:00 Emergency Sandy Garcia [facility] 1.2.840.114 350.1.13.10 4.2.7.2.686 [id number] [facility] 2024-06-20 00:00:00 2024-06-20 00:00:00 Outpatient RIDDHI MONTES [id number] [facility] 2024-06-18 00:00:00 2024-06-18 00:00:00 Outpatient GISELLE OSORIO [id number] [facility] 2024-06-17 15:30:00 2024-06-17 15:30:00 Outpatient KELLEE DORMAN [id number] [facility] 2024-06-14 21:28:00 2024-06-15 00:28:00 Emergency SANDY GONZALEZ SHINTA [facility] ERT [id number] [facility] 2024-06-14 21:28:00 2024-06-15 00:28:00 Emergency Sandy Garcia [facility] 1..840.114 350.1.13.10 4.2.7.2.686 [id number] [facility] 2024-06-06 21:56:00 2024-06-07 02:40:00 Emergency X BOB GARCIA WAKILI [facility] ERT [id number] [facility] 2024-06-06 21:56:00 2024-06-07 02:40:00 Emergency Bob Garcia [facility] 1.2.840.114 350.1.13.10 4.2.7.2.686 [id number] [facility] 2024-06-02 00:00:00 2024-06-02 00:00:00 Outpatient RIDDHI MONTES [facility]ELLEE [id number] [facility] 2024-05-28 13:00:00 2024-05-28 13:00:00 Outpatient GISELLE OSORIO KELLEE [id number] [facility] 2024-05-20 00:00:00 2024-05-20 00:00:00 Outpatient RIDDHI MONTES [facility]ELLEE [id number] [facility] 2024-05-19 11:44:00 2024-05-19 13:35:00 Emergency X RAFAL WRIGHT [facility] ERT [id number] [facility] 2024-05-19 11:44:00 2024-05-19 13:35:00 Emergency Rafal Wright [facility] 1.2.840.114 350.1.13.10 4.2.7.2.686 [id number] [facility] 2024-05-18 11:15:00 2024-05-18 11:15:00 Outpatient LABGerman DORMAN KELLEE [id number] [facility] 2024-05-18 10:30:00 2024-05-18 10:30:00 Outpatient RIDDHI MONTES KELLEE DORMAN [id number] [facility] 2024-05-17 18:30:00 2024-05-17 22:19:00 Emergency Tammy Roy [facility] .2.840.114 350.1.13.10 4.2.7.2.686 [id number] [facility] 2024-05-13 18:04:00 2024-05-13 20:42:00 Emergency ER ARELIS KERN [facility] [id number] [facility] 2024-05-12 00:00:00 2024-05-12 00:00:00 Outpatient RIDDHI MONTES KELLEE DORMAN [id number] [facility] 2024-05-07 18:47:00 2024-05-07 21:36:00 Emergency Saleem Edward [facility] 1.2.840.114 350.1.13.10 4.2.7.2.686 [id number] [facility] 2024-04-22 09:15:00 2024-04-22 09:15:00 Outpatient FARTUN GILLESPIE KELLEE DORMAN [id number] [facility] 2024-04-15 10:30:00 2024-04-15 10:30:00 Outpatient RIDDHI MONTES [id number] [facility] 2024-04-12 00:00:00 2024-04-12 00:00:00 Outpatient RIDDHI MONTES [id number] [facility] 2024-04-10 16:20:00 2024-04-10 18:53:00 Emergency ER TAVARES GM JR [facility] [id number] [facility] 2024-04-10 16:20:00 2024-04-10 18:53:00 Departed Emergency Room [facility] [id number] 85 [facility] 2024-04-08 17:37:00 2024-04-08 20:38:00 Emergency FlorentinoCourtneyJacque [facility] 1.2.840.114 350.1.13.10 4.2.7.2.686 [id number] [facility] 2024-04-08 00:00:00 2024-04-08 00:00:00 Outpatient RIDDHI MONTES [id number] [facility] 2024-03-12 00:00:00 2024-03-12 00:00:00 Outpatient RIDDHI MONTES [id number] [facility] 2024-03-06 11:00:00 2024-03-06 11:00:00 Outpatient RIDDHI MONTES [id number] [facility] 2024-02-06 11:00:00 2024-02-06 11:00:00 Outpatient JO, GISELLE KELLEE DORMAN [id number] [facility] 2024-02-06 10:40:00 2024-02-06 10:40:00 Outpatient KELLEE DORMAN [id number] [facility] 2024-02-06 00:00:00 2024-02-06 00:00:00 Outpatient HUNDL, RIDDHI KELLEE DORMAN [id number] [facility] 2024-02-05 00:00:00 2024-02-05 00:00:00 Outpatient HUNDL, RIDDHI DORMAN [id number] [facility] 2024-01-14 09:30:00 2024-01-14 09:30:00 Outpatient HUNDL, RIDDHI KELLEE DORMAN [id number] [facility] 2024-01-09 00:00:00 2024-01-09 00:00:00 Outpatient HUNDL, RIDDHI DORMAN [id number] [facility] 2024-01-06 00:00:00 2024-01-06 00:00:00 Outpatient HUNDL, RIDDHI DORMAN [id number] [facility] 2024-01-03 00:00:00 2024-01-03 00:00:00 Outpatient HUNDL, RIDDHI DORMAN [id number] [facility] 2024-01-02 14:00:00 2024-01-02 14:00:00 Outpatient HUNDL, RIDDHI DORMAN [id number] [facility] 2023-12-13 09:30:00 2023-12-13 09:30:00 Outpatient HUNDL, RIDDHI DORMAN [id number] [facility] 2023-12-09 00:00:00 2023-12-09 00:00:00 Outpatient HUNDL, RIDDHI DORMAN [id number] [facility] 2023-12-05 00:00:00 2023-12-05 00:00:00 Outpatient HUNDL, RIDDHI DORMAN [id number] [facility] 2023-12-03 11:45:00 2023-12-03 11:45:00 Outpatient LAB90 KELLEE DORMAN [id number] [facility] 2023-12-03 11:00:00 2023-12-03 11:00:00 Outpatient RIDDHI MONTES [id number] [facility] 2023-11-26 00:00:00 2023-11-26 00:00:00 Outpatient RIDDHI MONTES KELLEE [id number] [facility] 2023-10-31 00:00:00 2023-10-31 00:00:00 Outpatient COSMO DORMAN KELLEE [id number] [facility] 2023-10-31 00:00:00 2023-10-31 00:00:00 Outpatient COSMO DORMAN KELLEE [id number] [facility] 2023-10-29 14:15:00 2023-10-29 14:15:00 Outpatient LAB90 KELLEE KELLEE [id number] [facility] 2023-10-29 13:30:00 2023-10-29 13:30:00 Outpatient RIDDHI MONTES KELLEE [id number] [facility] 2023-10-10 21:31:00 2023-10-11 00:43:00 Emergency X PARVEZ BOB [facility] ERT [id number] [facility] 2023-10-10 21:31:00 2023-10-11 00:43:00 Emergency Bob Garcia [facility] 1.2.840.114 350.1.13.10 4.2.7.2.686 [id number] [facility] 2023-08-31 18:02:00 2023-08-31 22:40:00 emergency [facility] [id number] 2023-08-31 18:02:00 2023-08-31 22:40:00 Emergency ER SHERIDAN MCMANUS [facility] [id number] [facility] 2023-07-01 19:50:00 2023-07-01 22:59:00 Emergency X ROBERTO RICHARDS [facility] ERT [id number] [facility] 2023-07-01 19:50:00 2023-07-01 22:59:00 Emergency Roberto Richards [facility] 1.2.840.114 350.1.13.10 4.2.7.2.686 [id number] [facility] 2023-06-04 23:37:00 2023-06-06 13:30:00 observatio n encounter [facility] [id number] [id number] 24 2023-06-04 23:37:00 2023-06-06 13:30:00 Inpatient ER JO-ANN SHAN [facility] [id number] [facility] 2023-05-11 01:16:00 2023-05-13 17:04:00 observatio n encounter [facility] [id number] edc [id number] 24 2023-05-11 01:16:00 2023-05-13 17:04:00 Inpatient ER SHAMEKA RIDDHI [facility] [id number] [facility] 2023-05-10 21:48:00 2023-05-10 21:48:00 Emergency ER AN IRIZARRY [facility] [id number] [facility] 2023-05-09 17:40:00 2023-05-09 20:30:00 Emergency X KLAUDIA NARVAEZ [facility] ERT [id number] [facility] 2023-05-09 17:40:00 2023-05-09 20:30:00 Emergency Klaudia Narvaez [facility] 1.2.840.114 350.1.13.10 4.2.7.2.686 [id number] [facility] 2023-05-05 21:31:00 2023-05-06 03:15:00 Emergency ER SHERIDAN MCMANUS [facility] [id number] [facility] 2023-05-05 21:31:00 2023-05-06 03:15:00 emergency [facility] [id number] 5eb [id number] 2023-04-30 17:18:00 2023-04-30 21:20:00 Emergency X KLAUDIA NARVAEZ [facility] ERT [id number] [facility] 2023-04-30 17:18:00 2023-04-30 21:20:00 Emergency Klaudia Narvaez [facility] 1.2.840.114 350.1.13.10 4.2.7.2.686 [id number] [facility] 2023-04-16 20:40:00 2023-04-16 23:10:00 Emergency X ROBERTO RICHARDS [facility] ERT [id number] [facility] 2023-04-16 20:40:00 2023-04-16 23:10:00 Emergency Roberto Richards [facility] 1.2.840.114 350.1.13.10 4.2.7.2.686 [id number] [facility] 2023-04-08 17:28:00 2023-04-08 21:20:00 Emergency X Saleem EDWARD [facility] ERT [id number] [facility] 2023-04-08 17:28:00 2023-04-08 21:20:00 Emergency Saleem Edward [facility] 1.2.840.114 350.1.13.10 4.2.7.2.686 [id number] [facility] 2023-03-09 20:23:00 2023-03-10 00:20:00 Emergency X ROBERTO RICHARDS [facility] ERT [id number] [facility] 2023-03-09 20:23:00 2023-03-10 00:20:00 Emergency Roberto Richards [facility] 1.2.840.114 350.1.13.10 4.2.7.2.686 [id number] [facility] 2023-03-01 19:35:00 2023-03-02 01:35:00 Emergency X BOB GARCIA [facility] ERT [id number] [facility] 2023-03-01 19:35:00 2023-03-02 01:35:00 Emergency Bob Garcia [facility] 1.2.840.114 350.1.13.10 4.2.7.2.686 [id number] [facility] 2023-02-17 22:58:00 2023-02-18 02:22:00 Emergency X APPLE PADGETT [facility] ERT [id number] [facility] 2023-02-17 22:58:00 2023-02-18 02:22:00 Emergency Apple Padgett [facility] 1.2.840.114 350.1.13.10 4.2.7.2.686 [id number] [facility] 2023-02-15 13:46:00 2023-02-17 16:14:00 Outpatient X ZAY MONTERO [facility] ALTHEA [id number] [facility] 2023-02-15 13:46:00 2023-02-17 16:14:00 Emergency Leeanne Wise Jelani [facility] 1.2.840.114 350.1.13.10 4.2.7.2.686 [id number] [facility] 2022-01-17 10:48:00 2022-01-17 10:48:00 Outpatient PATRICE_RENETTA HOBSON [facility] [id number] [facility] 2022-01-09 16:47:00 2022-01-09 20:28:00 Emergency X CHEL LONGORIAIO [facility] ERT [id number] [facility] 2022-01-09 16:47:00 2022-01-09 20:28:00 Emergency Ellynade Matty [facility] 1.840.114 350.1.13.10 4.2.7.2.686 [id number] [id number] [facility] 2021-12-13 22:16:00 2021-12-14 02:28:00 Emergency X AZUCENA MCQUEENN [facility] ERT [id number] [facility] 2021-12-13 22:16:00 2021-12-14 02:28:00 Emergency Azucena Mcqueenami Odonnell [facility] 1.0.114 350.1.13.10 4.2.7.2.686 [id number] [facility] 2021-11-11 19:50:00 2021-11-11 23:17:00 Emergency X SUMMERAPPLE KUMAR [facility] ERT [id number] [facility] 2021-11-11 19:50:00 2021-11-11 23:17:00 Emergency GenaroclaudiaApple kumar [facility] 1.840.114 350.1.13.10 4.2.7.2.686 [id number] [id number] [facility] 2021-11-11 00:00:00 2021-11-11 00:00:00 Orders Only Doctor Unassigned, [place] [facility] 1.2840.114 350.1.13.10 4.2.7.2.686 [id number] [facility] 2021-09-11 19:42:00 2021-09-11 23:02:00 Emergency X APPLE WANG [facility] ERT [id number] [facility] 2021-09-11 19:42:00 2021-09-11 23:02:00 Emergency Apple Wang [facility] 1.2.840.114 350.1.13.10 4.2.7.2.686 [id number] [facility] 2021-08-14 23:38:00 2021-08-15 02:29:00 Emergency X BOB GARCIA [facility] ERT [id number] [facility] 2021-08-14 23:38:00 2021-08-15 02:29:00 Emergency Bob Garcia [facility] 1.2840.114 350.1.13.10 4.2.7.2.686 [id number] [id number] [facility] 2021-05-27 23:23:00 2021-05-28 04:23:00 Emergency CEM NERI [facility] ERT [id number] [facility] 2021-05-27 23:23:00 2021-05-28 04:23:00 Emergency Cem Choi [facility] 1.2840.114 350.1.13.10 4.2.7.2.686 [id number] [id number] [facility] 2021-04-10 00:00:00 2021-04-10 00:00:00 Transition of Care Shelley Rosas 1.2840.114 350.1.13.10 4.2.7.2.686 [id number] [facility] 2021-04-07 16:30:00 2021-04-08 17:45:00 Hospital Encounter Roberto Richards Jelani [facility] 1.2.840.114 350.1.13.10 4.2.7.2.686 [id number] [facility] 2021-04-07 16:18:00 2021-04-07 16:18:00 Emergency X [facility] ERT [id number] [facility] 2021-01-12 03:01:00 2021-01-12 04:56:00 Emergency Klaudia Narvaez [facility] 1.840.114 350.1.13.10 4.2.7.2.686 [id number] [id number] [facility] 2021-01-12 03:01:00 2021-01-12 03:01:00 Emergency X KLAUDIA NARVAEZ [facility] ERT [id number] [facility] 2020-12-10 17:12:00 2020-12-10 21:14:00 Emergency Bal Hassna [facility] 1.84.114 350.1.13.10 4.2.7.2.686 [id number] [id number] [facility] 2020-12-10 17:12:00 2020-12-10 17:12:00 Emergency X BAL HASSAN [facility] ERT [id number] [facility] 2020-12-04 14:50:00 2020-12-04 17:08:00 Emergency Tremaine Becerra [facility] 1.84.114 350.1.13.10 4.2.7.2.686 [id number] [id number] [facility] 2020-12-04 14:50:00 2020-12-04 17:08:00 Emergency X TREMAINE BECERRA [facility] ERT [id number] [facility] 2020-11-03 20:44:00 2020-11-03 23:34:00 Emergency Leeanne Wise [facility] 1.840.114 350.1.13.10 4.2.7.2.686 [id number] [id number] [facility] 2020-11-03 20:44:00 2020-11-03 23:34:00 Emergency X LEEANNE WISE [facility] ERT [id number] [facility] 2020-09-19 12:32:00 2020-09-19 14:15:00 Emergency ER MORA POLLOCK [facility] [id number] [facility] 2020-09-17 09:53:00 2020-09-17 11:55:00 Emergency DreLeeanne almonte [facility] 1.2.840.114 350.1.13.10 4.2.7.2.686 [id number] 2020-09-17 09:53:00 2020-09-17 11:55:00 Emergency DreLeeanne almonte [facility] 1.2.840.114 350.1.13.10 4.2.7.2.686 [id number] [id number] [facility] 2020-09-17 09:53:00 2020-09-17 11:55:00 Emergency X LEEANNE WISE [facility] ERT [id number] [facility] 2020-09-07 00:37:00 2020-09-07 01:41:00 Emergency Saleem Edward [facility] 1.2.840.114 350.1.13.10 4.2.7.2.686 [id number] [id number] 2020-09-07 00:37:00 2020-09-07 01:41:00 Emergency Saleem Edward [facility] 1.2.840.114 350.1.13.10 4.2.7.2.686 [id number] [id number] [facility] 2020-09-07 00:37:00 2020-09-07 01:41:00 Emergency X Saleem EDWARD [facility] ERT [id number] [facility] 2020-09-07 00:00:00 2020-09-07 00:00:00 Orders Only Doctor Unassigned, [place] [facility] 1.2.840.114 350.1.13.10 4.2.7.2.686 [id number] 2020-09-07 00:00:00 2020-09-07 00:00:00 Orders Only Doctor Unassigned, [place] [facility] 1.2.840.114 350.1.13.10 4.2.7.2.686 [id number] [facility] 2020-08-28 01:59:00 2020-08-28 04:40:00 Emergency Parvez [facility] 1.2.840.114 350.1.13.10 4.2.7.2.686 [id number] [id number] 2020-08-28 01:59:00 2020-08-28 04:40:00 Emergency Parvez [facility] 1.2.840.114 350.1.13.10 4.2.7.2.686 [id number] [id number] [facility] 2020-08-28 01:59:00 2020-08-28 01:59:00 [facility] E[facility] [id number] [facility] 2020-08-14 11:48:00 2020-08-14 13:42:00 Emergency Best Taylor [facility] 1.2.840.114 350.1.13.10 4.2.7.2.686 [id number] 084 [id number] 2020-08-14 11:48:00 2020-08-14 13:42:00 Emergency Best Taylor [facility] 1.2.840.114 350.1.13.10 4.2.7.2.686 [id number] [id number] [facility] 2020-08-14 11:33:00 2020-08-14 11:33:00 Emergency X BEST TAYLOR [facility] ERT [id number] [facility] 2020-08-10 18:35:00 2020-08-11 00:05:00 Emergency Best Taylor [facility] 1.2.840.114 350.1.13.10 4.2.7.2.686 [id number] [id number] 2020-08-10 18:35:00 2020-08-11 00:05:00 Emergency Best Taylor [facility] 1.2.840.114 350.1.13.10 4.2.7.2.686 [id number] [id number] [facility] 2020-08-10 18:35:00 2020-08-11 00:05:00 Emergency X BOB GARCIA [facility] ERT [id number] [facility] 2020-08-07 07:19:00 2020-08-07 09:02:[facility]40.114 350.1.13.10 4.2.7.2.686 [id number] 084 [id number] 2020-08-07 07:19:00 2020-08-07 09:02:00 [facility] 1.2.840.114 350.1.13.10 4.2.7.2.686 [id number] 084 [id number] [facility] 2020-08-07 07:12:00 2020-08-07 07:12:00 Emergency X [facility] ERT [id number] [facility] 2020-08-07 00:00:00 2020-08-07 00:00:00 Orders Only Doctor Unassigned, [place] [facility] 1.2840.114 350.1.13.10 4.2.7.2.686 [id number] 2020-08-07 00:00:00 2020-08-07 00:00:00 Orders Only Doctor Unassigned, [place] [facility] 1.2.840.114 350.1.13.10 4.2.7.2.686 [id number] [facility] 2020-07-01 00:00:00 2020-07-01 00:00:00 Letter (Out) [facility] 1.2.840.114 350.1.13.10 4.2.7.2.686 [id number] 2020-07-01 00:00:00 2020-07-01 00:00:00 Letter (Out) [facility] 1.2.840.114 350.1.13.10 4.2.7.2.686 [id number] [facility] 2020-06-30 17:46:00 2020-06-30 21:06:00 Emergency Abdias Robertson [facility] 1.2.840.114 350.1.13.10 4.2.7.2.686 [id number] 084 [id number] 2020-06-30 17:46:00 2020-06-30 21:06:00 Emergency Abdias Robertson [facility] 1.2.840.114 350.1.13.10 4.2.7.2.686 [id number] [facility] 2020-06-30 17:46:00 2020-06-30 21:06:00 Emergency X ABDIAS ROBERTSON [facility] ERT [id number] [facility] 2020-06-28 16:00:00 2020-06-28 18:08:00 Emergency Klaudia Narvaez [facility] 1.2.840.114 350.1.13.10 4.2.7.2.686 [id number] [id number] 2020-06-28 16:00:00 2020-06-28 18:08:00 Emergency Klaudia Narvaez [facility] 1.2.840.114 350.1.13.10 4.2.7.2.686 [id number] [id number] [facility] 2020-06-28 16:00:00 2020-06-28 16:00:00 Emergency X KLAUDIA NARVAEZ [facility] ERT [id number] [facility] 2020-06-14 00:00:00 2020-06-14 00:00:00 Telephone [facility] 1.2.840.114 350.1.13.10 4.2.7.2.686 [id number] 2020-06-14 00:00:00 2020-06-14 00:00:00 Telephone [facility] 1.2.840.114 350.1.13.10 4.2.7.2.686 [id number] [facility] 2020-06-12 17:40:00 2020-06-12 22:05:00 Emergency Leeanne Wise [facility] 1.2.840.114 350.1.13.10 4.2.7.2.686 [id number] 084 [id number] 2020-06-12 17:40:00 2020-06-12 22:05:00 Emergency Leeanne Wise [facility] 1.2.840.114 350.1.13.10 4.2.7.2.686 [id number] [facility] 2020-06-12 17:28:00 2020-06-12 17:28:00 Emergency X [facility] ERT [id number] [facility] 2020-05-16 17:10:00 2020-05-16 19:01:00 Emergency Bushra Rios [facility] 1.2.840.114 350.1.13.10 4.2.7.2.686 [id number] 2020-05-16 17:10:00 2020-05-16 19:01:00 Emergency Bushra Rios [facility] 1.2.840.114 350.1.13.10 4.2.7.2.686 [id number] [facility] 2020-05-16 17:10:00 2020-05-16 17:10:00 Emergency X BUSHRA RIOS [facility] ERT [id number] [facility] 2020-05-14 23:18:00 2020-05-15 02:54:00 Emergency Roberto Richards [facility] 1.2.840.114 350.1.13.10 4.2.7.2.686 [id number] 2020-05-14 23:18:00 2020-05-15 02:54:00 Emergency Roberto Richards [facility] 1.2.840.114 350.1.13.10 4.2.7.2.686 [id number] [facility] 2020-05-14 23:14:00 2020-05-14 23:14:00 Emergency X ROBERTO RICHARDS [facility] ERT [id number] [facility] 2009-07-18 05:35:00 2009-07-18 09:19:00 Emergency ER SINCERE FRANK [facility] [id number] [facility] 2008-10-08 09:55:00 2008-10-08 14:19:00 Emergency ER GUMARO ALVAREZ [facility] [id number] [facility] 2008-03-26 15:21:00 2008-03-26 18:08:00 Emergency ER NEIL WILKINS [facility] [id number] [facility] 2005-05-25 06:35:00 2005-05-25 06:35:00 Outpatient LISA LUNA [facility] [id number] [facility] 2005-05-16 21:57:00 2005-05-16 23:40:00 Emergency ER JW SOLORZANO [facility] [id number] [facility] 2005-04-24 18:49:00 2005-04-24 22:40:00 Emergency ER JW SOLORZANO [facility] [id number] [facility] 2004-12-27 20:30:00 2004-12-28 01:40:00 Emergency ER SANIA SIBLEY [facility] [id number] [facility] 2003-12-07 22:40:00 2003-12-08 02:48:00 Emergency ER GINA MARTIN [facility] [id number] [facility] 2003-12-06 13:57:00 2003-12-06 18:30:00 Emergency ER YIN RIOS [facility] [id number] [facility] 2003-08-31 19:43:00 2003-08-31 22:55:00 Emergency ER GUMARO ALAVREZ [facility] [id number] [facility] 2003-08-22 19:26:00 2003-08-22 22:10:00 Emergency ER ALBERTO CASTLE [facility] [id number] [facility] 2002-01-30 22:41:00 2002-01-31 01:29:00 Emergency ER ANTHONY SCHNEIDER [facility] [id number] [facility] 2001-10-28 09:15:00 2001-10-28 11:25:00 Emergency ER LINDA, DARCIE [facility] [id number] [facility] 2001-04-15 19:14:00 2001-04-15 23:10:00 Emergency ER ARLETTE ROBERT [facility] [id number] [facility] 2000-12-25 21:52:00 2000-12-26 00:15:00 Emergency ER GISELA RIOS [facility] [id number] [facility] 2000-12-23 18:51:00 2000-12-23 22:00:00 Emergency ER HUGO COFFMAN [facility] [place] [id number] [facility] 1999-10-26 21:11:00 1999-10-27 00:20:00 Emergency ER JW SOLORZANO [facility] [place] [id number] [facility] Results Test Description Test Time Test Comments Results Result Co mments Source [facility] 1 [id number] 00:10:33CHEST ONE VIEW ORDERING PHYSICIAN: KLAUDIA NARVAEZ CLINICAL HISTORY:Chest pain ; TECHNIQUE: Single frontal radiograph of the chest was obtained. COMPARISON: Radiograph 10/31/2024. FINDINGS: Cardiac silhouette is within normal limits. No focal lung consolidation. Nopneumothorax or pleural effusion. Noacute osseous abnormality. [facility] [id number] 01:45:00* Test Item Value Reference Range Interpretation Comme nts POCT PREG (test code = 1605) Negative On board controls acceptable with C Line (test code = 3574) Yes POCT PREG LOT # (test code = 3575) [id number] POCT PREG TEST DATE ( test code = 3576) 2026-01-04 Lab Interpretation (test cod e = 71569-2) Normal [facility] Abdomen pelvis w gpeihznq3191-04-17 05:06:35Exam: CT Abdomen and Pelvis with contrast, [...] MUSCULOSKELETAL:Soft tissues: Unr emarkable.Bones: No acute osseous abnormality.[facility]. Metabolic Panel (54818)2024-11-11 03:05:56* Test Item Value Reference Range Interpretation Comme nts NA (test code = 2116630062) 137 mmol/L 135-145 K (test code = 9173082354) 3.2 mmol/L 3.5-5.0 L CL (test code = 1796397502) 107 mmol/L 98-108 CO2 TOTAL (test code = 5462199184) 23 mmol/L 23-31 AGAP (test code = 2998604197) 7 2-16 BUN (test code = 0413432946) 8 mg/dL 7-23 GLUCOSE (test code = 5692721164) 93 mg/dL 70-110 CREATININE (test code = 2160-0) 0.59 mg/dL 0.50-1.04 TOTAL BILI (test code = 2827000145) 0.2 mg/dL 0.1-1.1 CALCIUM (test code = 1555332382) 9 mg/dL 8.6-10.6 T PROTEIN (test code = 1557383655) 6.5 g/dL 6.3-8.2 ALBUMIN (test code = 3145872335) 3.8 g/dL 3.5-5.0 ALK PHOS (test code = 6990127300) 56 U/L 34-122 ALTv (test code = 1742-6) 14 U/L 5-35 AST(SGOT) (test code = 7285503034) 16 U/L 13-40 eGFR (test code = 07045-1) 113.4 mL/min/1.73m2 CKD-EPI eGFR (2020). Assuming creatinine has been stable day-to-day for at least three months, the eGFR indicates Category G1 (>= 90 mL/min/1.73 m2) Lab Interpretation (test code = 45661-8) Abnormal [facility]2025-[facility]-07 03:05:36* Test Item Value Reference Range Interpretation Comme nts LIPASE (test code = 6913294130) 108 U/L 0-220 Lab Interpretation (test cod e = 89111-1) Normal [facility] with Atsy6281-10-64 02:49:12* Test Item Value Reference Range Interpretation [...] 32.5 g/dL 31.6-35.1 RDW-SD (test code = 28192-9) 52.4 fL 39.0-49.9 H RDW-CV (test code = 788-0) 17.9 % 12.0-15.5 H PLT (test code = 777-3) 337 166-358 MPV (test code = 59402-2) 9.6 fL 9.5-12.9 NRBC/100 WBC (test code = 0356880087) 0 0.0-10.0 NRBC x10^3 (test code = 2252616793) See_Comment [Automated Aerovance[employer] ge] The system which generated this result transmitted reference range: 10*3/?L. The reference range was not used to interpret this result as normal/abnormal. GRAN MAT (NEUT) % (test code = 770-8) 49.2 % IMM GRAN % (test code = 1112323223) 0.1 % LYMPH % (test code = 736-9) 40.4 % MONO % (test code = 5905-5) 7 % EOS % (test code = 713-8) 2.8 % BASO % (test code = 706-2) 0.5 % GRAN MAT x10^3(ANC) (test code = 7255421195) 3.86 10*3/uL 1.88-7.09 IMM GRAN x10^3 (test code = 5765075005) 0.00-0.06 LYMPH x10^3 (test code = 731-0) 3.17 10*3/uL 1.32-3.29 MONO x10^3 (test code = 742-7) 0.55 10*3/uL 0.33-0.92 EOS x10^3 (test code = 711-2) 0.22 10*3/uL 0.03-0.39 BASO x10^3 (test code = 704-7) 0.04 10*3/uL 0.01-0.07 Lab Interpretation (test code = 81274-5) Abnormal [facility] [id number] 02:26:00* Test Item Value Reference Range Interpretation Comme nts POCT PREG (test code = 1605) Negative On board controls acceptable with C Line (test code = 3574) Yes POCT PREG LOT # (test code = 3575) [id number] POCT PREG TEST DATE ( test code = 3576) 01/28/2026 Lab Interpretation (test cod e = 10652-5) Normal [facility] Phehagvriqlmnuj1993-46-97 20:32:27Left Heart Cath/Coronary Angiography Charity Roca Date of Service: 11/03/2024 ?2:55 PM Attending Physician: Dane Jurado MDFellow: Dr. JonesReferring Physician: Dr. Sandra ProceduresPerformed:LHC/Coronary Angiogram: CPT 77093WOE of mLAD: CPT 29921MMM of mRCA: CPT 62985 Indication/D iagnosis: ACS ([place]/NSTEMI) Consent: Risks, benefits, alternatives and complications of the procedure discussed with the patient, who understood and agreed to proceed. 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 ?The access site was prepped and [...] with patient Dane Jurado MD [facility]24 2[facility]2024-11-03 14:39:09* Test Item Value Reference Range Interpretation Comme [facility] APTT Patient (test code = 3173-2) 43 26-36 H Lab Interpretation (test cod e = 82053-7) [facility]24-[facility]-03 14:39:09* Test Item Value Reference Range Interpretation Comme [facility] APTT Patient (test code = 3173-2) 43 26-36 H Lab Interpretation (test cod e = 74508-1) Abnormal [place] [address] Lead ROUTINE CLBZ6256-26-43 09:59:09* Test Item Value Reference Range Interpretation Comme [facility] Lab Interpretation (test cod e = 35985-4) Abnormal [place] [address] Lead ROUTINE BAGE1933-58-10 09:59:09* Test Item Value Reference Range Interpretation Comme nts Lab Interpretation (test cod e = 26391-9) Abnormal [facility] Bbsiovt2517-26-07 00:01:33 * Test Item Value Reference Range Interpretation Comme nts TSH (test code = 8520773721) 4.07 0.45-4.70 Biotin has been reported to cause a negative bias, interpret results relative to patient's use of biotin. Lab Interpretation (test code = 33450-0) Normal [facility] Gzwctzf7690-93-99 00:01:33 * Test Item Value Reference Range Interpretation Comme nts TSH (test code = 0252810442) 4.07 0.45-4.70 Biotin has been reported to cause a negative bias, interpret results relative to patient's use of biotin. Lab Interpretation (test code = 87722-4) Normal [facility]th[facility] (PT) / RHI6128-07-89 20:11:45 * Test Item Value Reference Range Interpretation Comme [facility] PROTIME PATIENT (test code = 5964-2) 11.3 10.1-12.6 INR (test code = 6301-6) 1 <=4.5 Normal INR <1.1; Warfarin Therapeutic range 2.0 to 3.0 or 2.5 to 3.5, depending upon the indications. Lab Interpretation (test code = 67454-9) [facility] 20:11:45* Test Item Value Reference Range Interpretation Comme [facility] APTT Patient (test code = 3173-2) 25 26-36 L DARWIN (test code = DARWIN) The [facility] patient population mean normal value for aPTT is 30 seconds. Lab Interpretation (test code = 89449-2) Abnormal [facility] (PT) / [id number] 20:11:45 * Test Item Value Reference Range Interpretation Comme [facility] PROTIME PATIENT (test code = 5964-2) 11.3 10.1-12.6 INR (test code = 6301-6) 1 <=4.5 Normal INR <1.1; Warfarin Therapeutic range 2.0 to 3.0 or 2.5 to 3.5, depending upon the indications. Lab Interpretation (test code = 54483-9) [facility] 20:11:45* Test Item Value Reference Range Interpretation Comme nts APTT Patient (test code = 3173-2) 25 26-36 L DARWIN (test code = DARWIN) The [facility] patient population mean normal value for aPTT is 30 seconds. Lab Interpretation (test code = 03065-1) Abnormal [facility] LancasterProcalcitonin2025-04-27 17:14:31* Test Item Value Reference Range Interpretation Comme nts Procalcitonin (test code = 3475109209) 0.02 ng/mL <=0.07 DARWIN (test code = [...] lung abscess/empyema. For further information please refer to:[email or web address] Lab Interpretation (test code = 15398-7) Normal [facility] LancasterProcalcitonin2025-04-27 17:14:31* Test Item Value Reference Range Interpretation Comme nts Procalcitonin (test code = 5207965087) 0.02 ng/mL <=0.07 DARWIN (test code = [...] lung abscess/empyema. For further information please refer to:[email or web address] Lab Interpretation (test code = 50692-6) Normal [facility] LancasterTransthoracic echo (TTE) Dhnlckv8767-97-09 14:54:14* Test Item Value Reference Range Interpretation Comme nts Height (test code = 5516340481) 62 in Weight (test code = 6510531675) 240 lbs Systolic BP (test code = 5003805255) 156 mmHg Diastolic BP (test code = 5428306211) 99 mmHg Heart Rate (test code = 5291595103) 76 bpm BSA (test code = 4110634593) 2.07 m2 LVOT diameter (test code = 0689561379) 1.86 cm LVOT area (test code = 0660000977) 2.7 cm2 Ao root diam (test code = 4403553446) 3.1 cm Aortic root (test code = 9474085063) 3.1 cm Ao root annulus (test code = 6678442611) 3.1 cm LA size (test code = 4139535020) 3.7 cm LVIDD (test code = 4105793661) 3.8 cm Left Ventricular End Diastolic Volume by Teichholz Method (test code = 6401016) 63 mL IVS (test code = 8107764915) 1.35 cm Interventricular Septum Diastolic Thickness by 2D (test code = 4322086) 1.35 cm LVPWD (test code = 4075247867) 1.36 cm PW (test code = 4889091527) 1.36 cm 0.6-1.1 EF(Teich) (test code = 1684783672) 53 % LVIDS (test code = 9077209287) 2.8 cm Left Ventricular End Systolic Volume by Teichholz Method (test code = 1503111) 29.6 mL FS (test code = 8274290856) 27 % EF - 2D (test code = 33830862) 53 % LAV(MOD-sp4) (test code = 7906647111) 53.8 mL E wave decelartion time (test code = 7939589488) 0.25 s MV stenosis pressure 1/2 time (test code = 9718693065) 73.5 ms MV Peak A Edilson (test code = 6598414737) 73.2 cm/s MV Peak E Edilson (test code = 0844364406) 64.2 cm/s E/A ratio (test code = 1210221147) 0.88 ratio MV Prop V (test code = 2976331908) 62.4 cm/s MV E/e' septal (test code = 1976433673) 12.8 cm/s Tapse (test code = 1273856396) 1.58 cm LVOT stroke volume (test code = 8898302642) 60 cm3 LVOT peak edilson (test code = 7999833703) 110.2 cm/s LVOT mn grad (test code = 3161985496) 2.5 mmHg AV LVOT peak gradient (test code = 8879064396) 4.9 mmHg LVOT peak VTI (test code = 9252715918) 22.1 cm LV V1 mean (test code = 5639826680) 75.6 cm/s Aortic valve mean velocity (test code = 9513984497) 97 cm/s Ao peak edilson (test code = 4307752419) 138 cm/s Ao VTI (test code = 8958236161) 28 cm AV area by cont VTI (test code = 0126613094) 2.1 cm2 AV area peak edilson (test code = 8496906864) 2.2 cm2 Ao max PG (test code = 6823349229) 7.6 mm[Hg] AV peak gradient (test code = 0007224071) 7.6 mmHg AV valve area (test code = 4292128070) 2.14 cm2 AV mean gradient (test code = 9278092654) 4 mmHg Radiology Study observation (narrative) (test code = 86845-3) DARWIN (test code = DARWIN) ?Left?Ventricle: Left [...] mL of Optison ultrasound enhancing agent used. [facility] (TTE) Xhgcnuc9253-85-94 14:54:14* Test Item Value Reference Range Interpretation Comme nts Height (test code = 6147139660) 62 in Weight (test code = 1932228596) 240 lbs Systolic BP (test code = 5388416331) 156 mmHg Diastolic BP (test code = 8870074776) 99 mmHg Heart Rate (test code = 3307463656) 76 bpm BSA (test code = 9132795176) 2.07 m2 LVOT diameter (test code = 2631391349) 1.86 cm LVOT area (test code = 7241103940) 2.7 cm2 Ao root diam (test code = 5306787853) 3.1 cm Aortic root (test code = 4748676976) 3.1 cm Ao root annulus (test code = 0766472773) 3.1 cm LA size (test code = 0630814651) 3.7 cm LVIDD (test code = 0067235495) 3.8 cm Left Ventricular End Diastolic Volume by Teichholz Method (test code = 0132893) 63 mL IVS (test code = 5400298564) 1.35 cm Interventricular Septum Diastolic Thickness by 2D (test code = 6182182) 1.35 cm LVPWD (test code = 3988620912) 1.36 cm PW (test code = 1673287600) 1.36 cm 0.6-1.1 EF(Teich) (test code = 7957084656) 53 % LVIDS (test code = 0327243416) 2.8 cm Left Ventricular End Systolic Volume by Teichholz Method (test code = 4543249) 29.6 mL FS (test code = 8007845922) 27 % EF - 2D (test code = 58075430) 53 % LAV(MOD-sp4) (test code = 9380910283) 53.8 mL E wave decelartion time (test code = 3547133691) 0.25 s MV stenosis pressure 1/2 time (test code = 8295617792) 73.5 ms MV Peak A Edilson (test code = 0096135459) 73.2 cm/s MV Peak E Edilson (test code = 7940665290) 64.2 cm/s E/A ratio (test code = 8116799496) 0.88 ratio MV Prop V (test code = 8453711552) 62.4 cm/s MV E/e' septal (test code = 9611516794) 12.8 cm/s Tapse (test code = 6621201265) 1.58 cm LVOT stroke volume (test code = 7001695806) 60 cm3 LVOT peak edilson (test code = 7918382046) 110.2 cm/s LVOT mn grad (test code = 7765432013) 2.5 mmHg AV LVOT peak gradient (test code = 4955124728) 4.9 mmHg LVOT peak VTI (test code = 8920389359) 22.1 cm LV V1 mean (test code = 6704948686) 75.6 cm/s Aortic valve mean velocity (test code = 3400365420) 97 cm/s Ao peak edilson (test code = 2124588491) 138 cm/s Ao VTI (test code = 6314134521) 28 cm AV area by cont VTI (test code = 8935199443) 2.1 cm2 AV area peak edilson (test code = 6630537172) 2.2 cm2 Ao max PG (test code = 1178615097) 7.6 mm[Hg] AV peak gradient (test code = 7443511482) 7.6 mmHg AV valve area (test code = 2892930700) 2.14 cm2 AV mean gradient (test code = 9183496058) 4 mmHg Radiology Study observation (narrative) (test code = 63674-7) DARWIN (test code = DARWIN) ?Left?Ventricle: Left [...] mL of Optison ultrasound enhancing agent used. [facility]-Terminal Xfp-Zsv8528-70-27 14:40:37* Test Item Value Reference Range Interpretation Comme [facility] NT-proBNP (test code = 08532-6) <=125 Lab Interpretation (test cod e = 73652-8) Normal [facility]Term[facility] Sbn-Edd9468-64-27 14:40:37* Test Item Value Reference Range Interpretation Comme [facility] NT-proBNP (test code = 23132-0) <=125 Lab Interpretation (test cod e = 17735-1) Normal [facility] LancasterGlycosylated Hemoglobin (A1C)2024-11-01 14:39:42* Test Item Value Reference Range Interpretation Comme [facility] HGB A1C (test code = 4548-4) 5.6 % 4.0-5.7 DARWIN (test code = DARWIN) Reference RangesNormal: <5.7%Prediabetes: 5.7 - 6.4%Diabetes: > 6.5% Lab Interpretation (test code = 22900-1) Normal [facility] LancasterGlycosylated Hemoglobin (A1C)2024-11-01 14:39:42* Test Item Value Reference Range Interpretation Comme [facility] HGB A1C (test code = 4548-4) 5.6 % 4.0-5.7 DARWIN (test code = DARWIN) Reference RangesNormal: <5.7%Prediabetes: 5.7 - 6.4%Diabetes: > 6.5% Lab Interpretation (test code = 63158-2) Normal [facility] [id number] 14:28:10* Test Item Value Reference Range Interpretation Comme nts TROPONIN I (test code = 6608043875) 0.003 ng/mL <=0.034 DARWIN (test code = [...] of biotin. Lab Interpretation (test code = 31058-3) Normal [facility] K6719-16-86 14:28:10* Test Item Value Reference Range Interpretation Comme nts TROPONIN I (test code = 5060373794) 0.003 ng/mL <=0.034 DARWIN (test code = [...] of biotin. Lab Interpretation (test code = 03647-9) Normal [facility] LancasterLipid Panel (69323)(Total Cholesterol, Triglycerides, HDL)2024-11-01 14:15:31* Test Item Value Reference Range Interpretation Comme nts CHOL (test code = 1158327891) 185 mg/dL 120-200 HDL (test code = 5511703002) 36 mg/dL >=50 L HDLC RATIO (test code = 1855293004) 5.1 <=4.5 H TRIG (test code = 5472507490) 219 mg/dL 30-170 H LDL CHOL (test code = 65172-5) 105 mg/dL <=160 VLDL (test code = 5977539826) 44 mg/dL 5-60 Lab Interpretation (test cod e = 40087-6) Abnormal [facility] (55380)(Total Cholesterol, Triglycerides, HDL)2024-11-01 14:15:31* Test Item Value Reference Range Interpretation Comme nts CHOL (test code = 5841329637) 185 mg/dL 120-200 HDL (test code = 0324713990) 36 mg/dL >=50 L HDLC RATIO (test code = 7867609592) 5.1 <=4.5 H TRIG (test code = 5925971339) 219 mg/dL 30-170 H LDL CHOL (test code = 39932-0) 105 mg/dL <=160 VLDL (test code = 9929732763) 44 mg/dL 5-60 Lab Interpretation (test cod e = 43690-5) [facility] 08:18:33* Test Item Value Reference Range Interpretation Comme nts TROPONIN I (test code = 2723764315) 0.002 ng/mL <=0.034 DARWIN (test code = [...] of biotin. Lab Interpretation (test code = 20052-7) [facility] A[facility]62-[facility]-27 08:18:33* Test Item Value Reference Range Interpretation Comme nts TROPONIN I (test code = 5724747420) 0.002 ng/mL <=0.034 DARWIN (test code = [...] of biotin. Lab Interpretation (test code = 20198-6) Normal [facility] Metabolic Panel (NA, K, CL, CO2, GLUCOSE, BUN, CREATININE, CA)2024-11-01 08:06:31* Test Item Value Reference Range Interpretation Comme nts NA (test code = 7070113090) 138 mmol/L 135-145 K (test code = 3892016943) 3.6 mmol/L 3.5-5.0 CL (test code = 1487799593) 105 mmol/L 98-108 CO2 TOTAL (test code = 0596600092) 25 mmol/L 23-31 AGAP (test code = 1955263692) 8 2-16 BUN (test code = 2488624321) 9 mg/dL 7-23 GLUCOSE (test code = 3169541567) 113 mg/dL 70-110 H CREATININE (test code = 2160-0) 0.63 mg/dL 0.50-1.04 CALCIUM (test code = 3524547407) 9.1 mg/dL 8.6-10.6 eGFR (test code = 00914-7) 111.6 mL/min/1.73m2 CKD-EPI eGFR (2020). Assuming creatinine has been stable day-to-day for at least three months, the eGFR indicates Category G1 (>= 90 mL/min/1.73 m2) Lab Interpretation (test code = 99872-6) Abnormal [facility] Metabolic Panel (NA, K, CL, CO2, GLUCOSE, BUN, CREATININE, CA)2024-11-01 08:06:31* Test Item Value Reference Range Interpretation Comme nts NA (test code = 1768653500) 138 mmol/L 135-145 K (test code = 4205508290) 3.6 mmol/L 3.5-5.0 CL (test code = 5759296361) 105 mmol/L 98-108 CO2 TOTAL (test code = 8524825674) 25 mmol/L 23-31 AGAP (test code = 7933769491) 8 2-16 BUN (test code = 7513018152) 9 mg/dL 7-23 GLUCOSE (test code = 4246120780) 113 mg/dL 70-110 H CREATININE (test code = 2160-0) 0.63 mg/dL 0.50-1.04 CALCIUM (test code = 0611307898) 9.1 mg/dL 8.6-10.6 eGFR (test code = 91239-7) 111.6 mL/min/1.73m2 CKD-EPI eGFR (2020). Assuming creatinine has been stable day-to-day for at least three months, the eGFR indicates Category G1 (>= 90 mL/min/1.73 m2) Lab Interpretation (test code = 93944-5) Abnormal [facility] Lancaster[facility]b with Pros6284-69-11 07:51:49* Test Item Value Reference Range Interpretation [...] 32.6 g/dL 31.6-35.1 RDW-SD (test code = 25720-2) 53.2 fL 39.0-49.9 H RDW-CV (test code = 788-0) 18.6 % 12.0-15.5 H PLT (test code = 777-3) 361 166-358 H MPV (test code = 74986-5) 9.5 fL 9.5-12.9 NRBC/100 WBC (test code = 4717626742) 0 0.0-10.0 NRBC x10^3 (test code = 9427875154) See_Comment [Automated messa ge] The system which generated this result transmitted reference range: 10*3/?L. The reference range was not used to interpret this result as normal/abnormal. GRAN MAT (NEUT) % (test code = 770-8) 63.7 % IMM GRAN % (test code = 7226781376) 0.4 % LYMPH % (test code = 736-9) 26.9 % MONO % (test code = 5905-5) 7.1 % EOS % (test code = 713-8) 1.5 % BASO % (test code = 706-2) 0.4 % GRAN MAT x10^3(ANC) (test code = 9359728599) 7.23 10*3/uL 1.88-7.09 H IMM GRAN x10^3 (test code = 3987672671) 0.05 10*3/uL 0.00-0.06 LYMPH x10^3 (test code = 731-0) 3.05 10*3/uL 1.32-3.29 MONO x10^3 (test code = 742-7) 0.8 10*3/uL 0.33-0.92 EOS x10^3 (test code = 711-2) 0.17 10*3/uL 0.03-0.39 BASO x10^3 (test code = 704-7) 0.04 10*3/uL 0.01-0.07 Lab Interpretation (test code = 08040-5) Abnormal [facility] with Prhg4419-76-03 07:51:49* Test Item Value Reference Range Interpretation [...] 32.6 g/dL 31.6-35.1 RDW-SD (test code = 27837-9) 53.2 fL 39.0-49.9 H RDW-CV (test code = 788-0) 18.6 % 12.0-15.5 H PLT (test code = 777-3) 361 166-358 H MPV (test code = 11878-9) 9.5 fL 9.5-12.9 NRBC/100 WBC (test code = 1514951252) 0 0.0-10.0 NRBC x10^3 (test code = 8113768877) See_Comment [Automated messa ge] The system which generated this result transmitted reference range: 10*3/?L. The reference range was not used to interpret this result as normal/abnormal. GRAN MAT (NEUT) % (test code = 770-8) 63.7 % IMM GRAN % (test code = 6760808677) 0.4 % LYMPH % (test code = 736-9) 26.9 % MONO % (test code = 5905-5) 7.1 % EOS % (test code = 713-8) 1.5 % BASO % (test code = 706-2) 0.4 % GRAN MAT x10^3(ANC) (test code = 7114618047) 7.23 10*3/uL 1.88-7.09 H IMM GRAN x10^3 (test code = 0758499103) 0.05 10*3/uL 0.00-0.06 LYMPH x10^3 (test code = 731-0) 3.05 10*3/uL 1.32-3.29 MONO x10^3 (test code = 742-7) 0.8 10*3/uL 0.33-0.92 EOS x10^3 (test code = 711-2) 0.17 10*3/uL 0.03-0.39 BASO x10^3 (test code = 704-7) 0.04 10*3/uL 0.01-0.07 Lab Interpretation (test code = 90435-5) [facility] 1 zj7993-53-96 03:52:49History: chest pain . Exam: XR CHEST 1 VW Date: 10/31/2024 10:00 PM Ordering provider: BOB GARCIA Comparison: 10/12/2024. Findings: Frontal view of the chest is obtained. The cardiac silhouette is normal in size. There are mild left perihilar andbibasilar opacities, which are similar on the prior. No evidence of pleuraleffusion, pneumothorax, or overt CHF.[facility] 1 [id number] 03:52:49History: chest pain . Exam: XR CHEST 1 VW Date: 10/31/2024 10:00 PM Ordering provider: BOB GARCIA Comparison: 10/12/2024. Findings: Frontal view of the chest is obtained. The cardiac silhouette is n ormal in size. There are mild left perihilar andbibasilar opacities, which are similar on the prior. No evidence of pleuraleffusion, pneumothorax, or overt CHF.[facility] Abdomen pelvis w tamhekvo5912-38-90 04:15:32CT ABDOMEN PELVIS W CONTRAST 10/23/2024 10:24 PM HISTORY: Abdominal pain, acute, nonlocalized. Upperabdominal pain radiatesto left side. COMPARISON: Multiple prior CT studies, the most recent one date07/03/2024. TECHNIQUE: Axial images of the abdomen and [...] changes of the spine. No concerning softtissue abnormality.[facility]. Metabolic Panel (40387)2024-10-24 02:17:07* Test Item Value Reference Range Interpretation Comme nts NA (test code = 9864731577) 136 mmol/L 135-145 K (test code = 2961819213) 3.7 mmol/L 3.5-5.0 CL (test code = 7356790290) 105 mmol/L 98-108 CO2 TOTAL (test code = 1433258527) 22 mmol/L 23-31 L AGAP (test code = 5909223448) 9 2-16 BUN (test code = 6033103601) 13 mg/dL 7-23 GLUCOSE (test code = 1691028466) 106 mg/dL 70-110 CREATININE (test code = 2160-0) 0.57 mg/dL 0.50-1.04 TOTAL BILI (test code = 4470877357) 0.4 mg/dL 0.1-1.1 CALCIUM (test code = 2553864961) 9.4 mg/dL 8.6-10.6 T PROTEIN (test code = 8496569757) 7.1 g/dL 6.3-8.2 ALBUMIN (test code = 0942993041) 4 g/dL 3.5-5.0 ALK PHOS (test code = 8905586387) 64 U/L 34-122 ALTv (test code = 1742-6) 15 U/L 5-35 AST(SGOT) (test code = 7537196992) 18 U/L 13-40 eGFR (test code = 30505-0) 114.4 mL/min/1.73m2 CKD-EPI eGFR (2021). Assuming creatinine has been stable day-to-day for at least three months, the eGFR indicates Category G1 (>= 90 mL/min/1.73 m2) Lab Interpretation (test code = 56847-9) [facility]16[facility]* Test Item Value Reference Range Interpretation Comme nts LIPASE (test code = 8593802842) 110 U/L 0-220 Lab Interpretation (test cod e = 33492-4) [facility]-98 02:13:50* Test Item Value Reference Range Interpretation [...] 32.9 g/dL 31.6-35.1 RDW-SD (test code = 72892-7) 52.2 fL 39.0-49.9 H RDW-CV (test code = 788-0) 17.9 % 12.0-15.5 H PLT (test code = 777-3) 337 166-358 MPV (test code = 27012-6) 9.6 fL 9.5-12.9 IPF % (test code = 8405588397) 1.6 % 1.3-7.7 Platelet count measured by fluorescence method. NRBC/100 WBC (test code = 3487146019) 0 0.0-10.0 NRBC x10^3 (test code = 5532984231) See_Comment [Automated messa ge] The system which generated this result transmitted reference range: 10*3/?L. The reference range was not used to interpret this result as normal/abnormal. GRAN MAT (NEUT) % (test code = 770-8) 62.2 % IMM GRAN % (test code = 1069627770) 0.3 % LYMPH % (test code = 736-9) 29.3 % MONO % (test code = 5905-5) 6.2 % EOS % (test code = 713-8) 1.6 % BASO % (test code = 706-2) 0.4 % GRAN MAT x10^3(ANC) (test code = 2084951546) 6.92 10*3/uL 1.88-7.09 IMM GRAN x10^3 (test code = 2897295596) 0.03 10*3/uL 0.00-0.06 LYMPH x10^3 (test code = 731-0) 3.26 10*3/uL 1.32-3.29 MONO x10^3 (test code = 742-7) 0.69 10*3/uL 0.33-0.92 EOS x10^3 (test code = 711-2) 0.18 10*3/uL 0.03-0.39 BASO x10^3 (test code = 704-7) 0.05 10*3/uL 0.01-0.07 Lab Interpretation (test code = 16763-1) Abnormal [facility] [id number] 07:13:54* Test Item Value Reference Range Interpretation Comme nts TROPONIN I (test code = 3129221456) 0.002 ng/mL <=0.034 DARWIN (test code = [...] of biotin. Lab Interpretation (test code = 17611-4) Normal [facility] [id number] 05:06:47* Test Item Value Reference Range Interpretation Comme nts TROPONIN I (test code = 7747734532) 0.001 ng/mL <=0.034 DARWIN (test code = [...] of biotin. Lab Interpretation (test code = 95863-6) [facility] Uaf-Tgi4617-83-08 05:04:06* Test Item Value Reference Range Interpretation Comme nts NT-proBNP (test code = 02440-0) 110 pg/mL <=125 Lab Interpretation (test cod e = 71071-1) [facility] Metabolic Panel (64472)2024-10-13 04:55:24* Test Item Value Reference Range Interpretation Comme nts NA (test code = 0369400922) 135 mmol/L 135-145 K (test code = 0214800607) 3.5 mmol/L 3.5-5.0 CL (test code = 8728747599) 104 mmol/L 98-108 CO2 TOTAL (test code = 8732190654) 25 mmol/L 23-31 AGAP (test code = 7498706086) 6 2-16 BUN (test code = 1125758970) 12 mg/dL 7-23 GLUCOSE (test code = 4176837849) 83 mg/dL 70-110 CREATININE (test code = 2160-0) 0.55 mg/dL 0.50-1.04 TOTAL BILI (test code = 9471596523) 0.2 mg/dL 0.1-1.1 CALCIUM (test code = 1467056031) 9.2 mg/dL 8.6-10.6 T PROTEIN (test code = 4224190512) 6.3 g/dL 6.3-8.2 ALBUMIN (test code = 7659754757) 3.5 g/dL 3.5-5.0 ALK PHOS (test code = 8505599257) 58 U/L 34-122 ALTv (test code = 1742-6) 12 U/L 5-35 AST(SGOT) (test code = 8102122834) 13 U/L 13-40 eGFR (test code = 96143-8) 115.4 mL/min/1.73m2 CKD-EPI eGFR (20 21). Assuming creatinine has been stable day-to-day for at least three months, the eGFR indicates Category G1 (>= 90 mL/min/1.73 m2) [facility] 04:55:03* Test Item Value Reference Range Interpretation Comme nts LIPASE (test code = 3212342750) 80 U/L 0-220 Lab Interpretation (test cod e = 83331-2) Normal [facility] with Vihr0428-27-84 04:41:23* Test Item Value Reference Range Interpretation [...] 32.1 g/dL 31.6-35.1 RDW-SD (test code = 48296-9) 51.6 fL 39.0-49.9 H RDW-CV (test code = 788-0) 17.9 % 12.0-15.5 H PLT (test code = 777-3) 328 166-358 MPV (test code = 36539-5) 8.9 fL 9.5-12.9 L NRBC/100 WBC (test code = 8326325088) 0.0 0.0-10.0 NRBC x10^3 (test code = 5949335747) See_Comment [Automated messa ge] The system which generated this result transmitted reference range: 10*3/?L. The reference range was not used to interpret this result as normal/abnormal. GRAN MAT (NEUT) % (test code = 770-8) 60.6 % IMM GRAN % (test code = 6387414119) 0.60 % LYMPH % (test code = 736-9) 31.0 % MONO % (test code = 5905-5) 5.9 % EOS % (test code = 713-8) 1.5 % BASO % (test code = 706-2) 0.4 % GRAN MAT x10^3(ANC) (test code = 5256917224) 6.12 10*3/uL 1.88-7.09 IMM GRAN x10^3 (test code = 0458881394) 0.06 10*3/uL 0.00-0.06 LYMPH x10^3 (test code = 731-0) 3.13 10*3/uL 1.32-3.29 MONO x10^3 (test code = 742-7) 0.60 10*3/uL 0.33-0.92 EOS x10^3 (test code = 711-2) 0.15 10*3/uL 0.03-0.39 BASO x10^3 (test code = 704-7) 0.04 10*3/uL 0.01-0.07 Lab Interpretation (test code = 56361-4) [facility]normal [facility] [id number] 03:46:00* Test Item Value Reference Range Interpretation Comme nts POCT PREG (test code = 1605) Negative On board controls acceptable with C Line (test code = 3574) Yes POCT PREG LOT # (test code = 3575) [id number] POCT PREG TEST DATE ( test code = 3576) 11/30/2025 Lab Interpretation (test cod e = 21610-0) Normal [facility] Chest pulmonary ukkujapdz1661-80-28 06:33:58Exam: CT Angiography Chest with Contrast, 07/18/2024 [...] the spleen. Osseous: No acute osseous finding. [facility] Abdom[facility] pelvis w eovpnnhn0950-45-56 06:50:04Exam: CT Abdomen and Pelvis With Contrast, [...] ?There is nopelvic adenopathy. Osseous/Soft Tissues: Unremarkable. [facility] FTPP0469-19-73 05:33:00* Test Item Value Reference Range Interpretation Comme nts POCT PREG (test code = 1605) Negative On board controls acceptable with C Line (test code = 3574) Yes POCT PREG LOT # (test code = 3575) [id number] POCT PREG TEST DATE ( test code = 3576) 2025-06-22 Lab Interpretation (test cod e = 37049-7) Normal [facility] Metabolic Kkmul3612-58-86 04:06:42* Test Item Value Reference Range Interpretation Comme [facility] NA (test code = 4376628168) 139 mmol/L 135-145 K (test code = 4387994805) 3.5 mmol/L 3.5-5.0 CL (test code = 4573901092) 105 mmol/L 98-108 CO2 TOTAL (test code = 8725572083) 26 mmol/L 23-31 AGAP (test code = 0739028118) 8 2-16 BUN (test code = 4099629500) 5 mg/dL 7-23 L GLUCOSE (test code = 3352679582) 101 mg/dL 70-110 CREATININE (test code = 2160-0) 0.58 mg/dL 0.50-1.04 TOTAL BILI (test code = 7753761911) 0.1-1.1 L CALCIUM (test code = 5080519248) 9.3 mg/dL 8.6-10.6 T PROTEIN (test code = 8357378954) 6.8 g/dL 6.3-8.2 ALBUMIN (test code = 2132722297) 3.9 g/dL 3.5-5.0 ALK PHOS (test code = 5973665365) 74 U/L 34-122 ALTv (test code = 1742-6) 17 U/L 5-35 AST(SGOT) (test code = 7711731026) 28 U/L 13-40 eGFR (test code = 25154-9) 113.9 mL/min/1.73m2 CKD-EPI eGFR (2020). Assuming creatinine has been stable day-to-day for at least three months, the eGFR indicates Category G1 (>= 90 mL/min/1.73 m2) Lab Interpretation (test code = 15639-9) Abnormal [facility] LancasterLip[facility], Jijmy2351-29-17 04:01:05* Test Item Value Reference Range Interpretation Comme nts LIPASE (test code = 3061103800) 80 U/L 0-220 Lab Interpretation (test cod e = 48036-9) Normal [facility]CBC with Eqdppowoqmhz8226-72-49 03:46:26* Test Item Value Reference Range Interpretation [...] 33.2 g/dL 31.6-35.1 RDW-SD (test code = 66906-5) 42.5 fL 39.0-49.9 RDW-CV (test code = 788-0) 14.6 % 12.0-15.5 PLT (test code = 777-3) 327 166-358 MPV (test code = 61771-9) 9.3 fL 9.5-12.9 L NRBC/100 WBC (test code = 7908980201) 0.0 0.0-10.0 NRBC x10^3 (test code = 0588511908) See_Comment [Automated messa ge] The system which generated this result transmitted reference range: 10*3/?L. The reference range was not used to interpret this result as normal/abnormal. GRAN MAT (NEUT) % (test code = 770-8) 65.7 % IMM GRAN % (test code = 6696441015) 0.50 % LYMPH % (test code = 736-9) 26.4 % MONO % (test code = 5905-5) 5.6 % EOS % (test code = 713-8) 1.4 % BASO % (test code = 706-2) 0.4 % GRAN MAT x10^3(ANC) (test code = 0663134708) 8.21 10*3/uL 1.88-7.09 H IMM GRAN x10^3 (test code = 9067408280) 0.06 10*3/uL 0.00-0.06 LYMPH x10^3 (test code = 731-0) 3.30 10*3/uL 1.32-3.29 H MONO x10^3 (test code = 742-7) 0.70 10*3/uL 0.33-0.92 EOS x10^3 (test code = 711-2) 0.17 10*3/uL 0.03-0.39 BASO x10^3 (test code = 704-7) 0.05 10*3/uL 0.01-0.07 Lab Interpretation (test code = 70457-4) [facility]normal [facility] Ab[facility] w zunbwcfl6340-85-91 05:39:04CT ABDOMEN PELVIS W CONTRAST HISTORY: 44 [...] TISSUES: No suspicious lytic or sclerotic bony lesions.[facility]. Metabolic Panel (79341)2024-06-15 05:12:33* Test Item Value Reference Range Interpretation Comme nts NA (test code = 9223189439) 139 mmol/L 135-145 K (test code = 9057999180) 3.7 mmol/L 3.5-5.0 CL (test code = 9191064981) 109 mmol/L 98-108 H CO2 TOTAL (test code = 6246631664) 23 mmol/L 23-31 AGAP (test code = 8999842111) 7 2-16 BUN (test code = 2315337061) 6 mg/dL 7-23 L GLUCOSE (test code = 4283265949) 101 mg/dL 70-110 CREATININE (test code = 2160-0) 0.67 mg/dL 0.50-1.04 TOTAL BILI (test code = 9810561740) 0.1-1.1 L CALCIUM (test code = 7006560024) 9.4 mg/dL 8.6-10.6 T PROTEIN (test code = 9881733447) 7.0 g/dL 6.3-8.2 ALBUMIN (test code = 6814316216) 4.0 g/dL 3.5-5.0 ALK PHOS (test code = 9463827310) 87 U/L 34-122 ALTv (test code = 1742-6) 28 U/L 5-35 AST(SGOT) (test code = 8982355582) 24 U/L 13-40 eGFR (test code = 98021-0) 110.0 mL/min/1.73m2 CKD-EPI eGFR (2020). Assuming creatinine has been stable day-to-day for at least three months, the eGFR indicates Category G1 (>= 90 mL/min/1.73 m2) Lab Interpretation (test code = 08805-1) Abnormal [facility] LancasterTroponin Y5027-03-60 05:03:33* Test Item Value Reference Range Interpretation Comme nts TROPONIN I (test code = 6563481023) 0.000 ng/mL <=0.034 DARWIN (test code = [...] of biotin. Lab Interpretation (test code = 79437-9) Normal [facility]Lipase2024-12-09 04:51:35* Test Item Value Reference Range Interpretation Comme nts LIPASE (test code = 1536078842) 94 U/L 0-220 Lab Interpretation (test cod e = 42336-0) Normal [facility] LancasterPregnancy Test, Zaphi0986-74-63 04:51:30* Test Item Value Reference Range Interpretation Comme nts PREG SERUM (test code = 2774966688) Negative DARWIN (test code = DARWIN) Less than 10 IU/L. ?If low titer or ectopic is suspected, resubmit specimen in 48-72 hours. [facility] LancasterCb with Eaop7148-10-48 04:36:57* Test Item Value Reference Range Interpretation [...] 32.9 g/dL 31.6-35.1 RDW-SD (test code = 85197-0) 44.3 fL 39.0-49.9 RDW-CV (test code = 788-0) 15.0 % 12.0-15.5 PLT (test code = 777-3) 347 166-358 MPV (test code = 45631-1) 9.4 fL 9.5-12.9 L NRBC/100 WBC (test code = 5584276422) 0.0 0.0-10.0 NRBC x10^3 (test code = 3663566317) See_Comment [Automated messa ge] The system which generated this result transmitted reference range: 10*3/?L. The reference range was not used to interpret this result as normal/abnormal. GRAN MAT (NEUT) % (test code = 770-8) 60.2 % IMM GRAN % (test code = 9688441218) 0.40 % LYMPH % (test code = 736-9) 31.3 % MONO % (test code = 5905-5) 5.8 % EOS % (test code = 713-8) 1.8 % BASO % (test code = 706-2) 0.5 % GRAN MAT x10^3(ANC) (test code = 2001710687) 6.36 10*3/uL 1.88-7.09 IMM GRAN x10^3 (test code = 6698536496) 0.04 10*3/uL 0.00-0.06 LYMPH x10^3 (test code = 731-0) 3.30 10*3/uL 1.32-3.29 H MONO x10^3 (test code = 742-7) 0.61 10*3/uL 0.33-0.92 EOS x10^3 (test code = 711-2) 0.19 10*3/uL 0.03-0.39 BASO x10^3 (test code = 704-7) 0.05 10*3/uL 0.01-0.07 Lab Interpretation (test code = 88766-6) [facility] 07:55:17* Test Item Value Reference Range Interpretation Comme nts TROPONIN I (test code = 4137883464) 0.000 ng/mL <=0.034 DARWIN (test code = [...] of biotin. Lab Interpretation (test code = 78520-6) Normal [facility] CHEST 1 [id number] 06:16:28Exam: Chest (1 View), 06/06/2024 11:30 PM. Ordering Physician: BOB GARCIA. History: Chest pain. Technique: AP view of the chest. Technical Quality: Adequate. Comparison: Chest radiograph 05/17/2024. Findings: Normal cardiac silhouette size. ?No airspace consolidation, pleuraleffusion, or pneumothorax. No acute osseous abnormality.[facility] ERTA8946-65-18 05:19:00* Test Item Value Reference Range Interpretation Comme nts POCT PREG (test code = 1605) Negative On board controls acceptable with C Line (test code = 3574) Yes POCT PREG LOT # (test code = 3575) [id number] POCT PREG TEST DATE ( test code = 3576) 04/11/2025 Lab Interpretation (test cod e = 32942-4) Normal [facility] LancasterTroponin [id number] 05:00:24* Test Item Value Reference Range Interpretation Comme nts TROPONIN I (test code = 9836749781) 0.000 ng/mL <=0.034 DARWIN (test code = [...] of biotin. Lab Interpretation (test code = 54615-9) Normal [facility]. Metabolic Panel (75855)2024-06-07 05:00:19* Test Item Value Reference Range Interpretation Comme nts NA (test code = 1541638486) 139 mmol/L 135-145 K (test code = 7467770719) 3.6 mmol/L 3.5-5.0 CL (test code = 5750221638) 108 mmol/L 98-108 CO2 TOTAL (test code = 2948813294) 22 mmol/L 23-31 L AGAP (test code = 8310832453) 9 2-16 BUN (test code = 9639850744) 10 mg/dL 7-23 GLUCOSE (test code = 5239058763) 144 mg/dL 70-110 H CREATININE (test code = 2160-0) 0.62 mg/dL 0.50-1.04 TOTAL BILI (test code = 9035008021) 0.1-1.1 L CALCIUM (test code = 3031801689) 9.2 mg/dL 8.6-10.6 T PROTEIN (test code = 4435654515) 6.5 g/dL 6.3-8.2 ALBUMIN (test code = 0827535481) 3.7 g/dL 3.5-5.0 ALK PHOS (test code = 7493910632) 69 U/L 34-122 ALTv (test code = 1742-6) 14 U/L 5-35 AST(SGOT) (test code = 5217183219) 15 U/L 13-40 eGFR (test code = 25763-6) 112.1 mL/min/1.73m2 CKD-EPI eGFR (2020). Assuming creatinine has been stable day-to-day for at least three months, the eGFR indicates Category G1 (>= 90 mL/min/1.73 m2) Lab Interpretation (test code = 16560-7) Abnormal [facility] with Mnnw0772-21-33 04:38:25* Test Item Value Reference Range Interpretation [...] 32.8 g/dL 31.6-35.1 RDW-SD (test code = 14705-0) 44.1 fL 39.0-49.9 RDW-CV (test code = 788-0) 14.9 % 12.0-15.5 PLT (test code = 777-3) 358 166-358 MPV (test code = 20454-0) 9.4 fL 9.5-12.9 L NRBC/100 WBC (test code = 5987091734) 0.0 0.0-10.0 NRBC x10^3 (test code = 8378549226) See_Comment [Automated messa ge] The system which generated this result transmitted reference range: 10*3/?L. The reference range was not used to interpret this result as normal/abnormal. GRAN MAT (NEUT) % (test code = 770-8) 58.2 % IMM GRAN % (test code = 7060588515) 0.40 % LYMPH % (test code = 736-9) 34.1 % MONO % (test code = 5905-5) 4.7 % EOS % (test code = 713-8) 2.3 % BASO % (test code = 706-2) 0.3 % GRAN MAT x10^3(ANC) (test code = 8207753912) 5.33 10*3/uL 1.88-7.09 IMM GRAN x10^3 (test code = 7311856842) 0.04 10*3/uL 0.00-0.06 LYMPH x10^3 (test code = 731-0) 3.12 10*3/uL 1.32-3.29 MONO x10^3 (test code = 742-7) 0.43 10*3/uL 0.33-0.92 EOS x10^3 (test code = 711-2) 0.21 10*3/uL 0.03-0.39 BASO x10^3 (test code = 704-7) 0.03 10*3/uL 0.01-0.07 Lab Interpretation (test code = 78467-0) [facility] WO UMEVBPBN0358-81-03 18:53:41EXAM: CT HEAD WO CONTRAST HISTORY: 44 [...] clear. Thecalvarium and central skull base are unremarkable.[facility]XR FOREARM 2 VW DMZXS1481-62-85 04:08:39EXAM: XR HAND 3+ VW RIGHT, XR [...] No radiopaqueforeign body. Mild diffuse soft tissue swelling.[facility] HAND 3+ VW [id number] 04:08:39EXAM: XR HAND 3+ VW RIGHT, XR [...] radiopaqueforeign body. Mild diffuse soft tissue swelling.[facility]3 VW [id number] 04:08:39EXAM: XR HAND 3+ VW RIGHT, XR [...] radiopaqueforeign body. Mild diffuse soft tissue swelling. [facility] MAXILLOFACIAL/MANDIBLE WO CONTRAST 2024-05-18 03:36:27ORDERING PHYSICIAN:TAMMY ?AUFDERHETRACY CLINICAL INFORMATION: ? Facial trauma, blunt COMPARISON: [...] no evidence of retrobulbar hematomas or retroconal fatstranding.[facility] CERVICAL SPINE WO CONTRAST 2024-05-18 03:28:19ORDERING PHYSICIAN: ? TAMMY ?AUFDERHETRACY HISTORY: Neck trauma, dangerous injury mechanism (Age [...] tissues arenormal. The visualized lung apices are clear.[facility] Zizf1009-55-51 02:00:00* Test Item Value Reference Range Interpretation Comme nts POCT PREG (test code = 1605) Negative On board controls acceptable with C Line (test code = 3574) Yes Lab Interpretation (test cod e = 89828-8) Normal [facility]. Metabolic Panel (66853)2024-05-08 01:19:56* Test Item Value Reference Range Interpretation Comme nts NA (test code = 0149487801) 139 mmol/L 135-145 K (test code = 0047505969) 3.3 mmol/L 3.5-5.0 L CL (test code = 3607017187) 107 mmol/L 98-108 CO2 TOTAL (test code = 2537166664) 22 mmol/L 23-31 L AGAP (test code = 0744352637) 10 2-16 BUN (test code = 9846884695) 5 mg/dL 7-23 L GLUCOSE (test code = 1683943545) 131 mg/dL 70-110 H CREATININE (test code = 2160-0) 0.72 mg/dL 0.50-1.04 TOTAL BILI (test code = 6654041060) 0.1-1.1 L CALCIUM (test code = 4549737744) 9.3 mg/dL 8.6-10.6 T PROTEIN (test code = 6025959303) 7.0 g/dL 6.3-8.2 ALBUMIN (test code = 8130996360) 4.1 g/dL 3.5-5.0 ALK PHOS (test code = 7561167578) 76 U/L 34-122 ALTv (test code = 1742-6) 27 U/L 5-35 AST(SGOT) (test code = 4042327775) 30 U/L 13-40 eGFR (test code = 44962-5) 105.2 mL/min/1.73m2 CKD-EPI eGFR (2020). Assuming creatinine has been stable day-to-day for at least three months, the eGFR indicates Category G1 (>= 90 mL/min/1.73 m2) Lab Interpretation (test code = 84633-4) [facility]normal [facility] LancasterTroponin [id number] 01:18:54* Test Item Value Reference Range Interpretation Comme nts TROPONIN I (test code = 9515551181) 0.003 ng/mL <=0.034 DARWIN (test code = [...] of biotin. Lab Interpretation (test code = 21903-7) Normal [facility] LancasterMagnesium2024-11-01 01:07:50* Test Item Value Reference Range Interpretation Comme nts MAGNESIUM (test code = 4750299034) 1.7 mg/dL 1.7-2.4 Lab Interpretation (test cod e = 25355-0) Normal [facility] LancasterLipase2024-11-01 01:07:30* Test Item Value Reference Range Interpretation Comme nts LIPASE (test code = 6015700130) 97 U/L 0-220 Lab Interpretation (test cod e = 44459-4) Normal [facility] LancasterCb with Exyt2985-02-74 00:51:30* Test Item Value Reference Range Interpretation [...] 33.2 g/dL 31.6-35.1 RDW-SD (test code = 61009-9) 43.6 fL 39.0-49.9 RDW-CV (test code = 788-0) 14.8 % 12.0-15.5 PLT (test code = 777-3) 382 166-358 H MPV (test code = 57529-6) 9.7 fL 9.5-12.9 NRBC/100 WBC (test code = 7442201838) 0.0 0.0-10.0 NRBC x10^3 (test code = 8072224969) See_Comment [Automated messa ge] The system which generated this result transmitted reference range: 10*3/?L. The reference range was not used to interpret this result as normal/abnormal. GRAN MAT (NEUT) % (test code = 770-8) 63.3 % IMM GRAN % (test code = 5371867519) 0.40 % LYMPH % (test code = 736-9) 27.5 % MONO % (test code = 5905-5) 5.4 % EOS % (test code = 713-8) 2.9 % BASO % (test code = 706-2) 0.5 % GRAN MAT x10^3(ANC) (test code = 3617204384) 7.25 10*3/uL 1.88-7.09 H IMM GRAN x10^3 (test code = 7557056322) 0.05 10*3/uL 0.00-0.06 LYMPH x10^3 (test code = 731-0) 3.15 10*3/uL 1.32-3.29 MONO x10^3 (test code = 742-7) 0.62 10*3/uL 0.33-0.92 EOS x10^3 (test code = 711-2) 0.33 10*3/uL 0.03-0.39 BASO x10^3 (test code = 704-7) 0.06 10*3/uL 0.01-0.07 Lab Interpretation (test code = 13748-0) [facility] plasma cardiac troponin I panel by high sensitivity svufmu0144-85-81 17:16:00* Test Item Value Reference Range Interpretation Comme nts Troponin T High Sensitivity (test code = 19920-9) < 6.0 [facility] CtrSerum or plasma glucose measurement (mass/volume) 2024-04-10 17:14:00* Test Item Value Reference Range Interpretation Comme nts Random Glucose (test code = 2345-7) 109 [facility] CtrSerum or plasma urea nitrogen measurement (mass/volume)2024-04-10 17:14:00* Test Item Value Reference Range Interpretation Comme nts Blood Urea Nitrogen (test co de = 3094-0) 4 [facility] NyhKSQ0328-30-16 17:14:00* Test Item Value Reference Range Interpretation Comme nts Aspartate Amino Transf (AST/ SGOT) (test code = LCD0418) 14 [facility] CtrBilirubin ntjgl2266-49-19 17:14:00* Test Item Value Reference Range Interpretation Comme nts Total Bilirubin (test code = KPZ0144) < 0.2 [facility] CtrEstimated glomerular filtration rate (GFR) thseexugstvwk3781-82-48 17:14:00* Test Item Value Reference Range Interpretation Comme nts Glomerular Filtration Rate C alc (test code = 738034082) > 60.00 [facility] CtrBUN/creatinine domlm4240-24-52 17:14:00* Test Item Value Reference Range Interpretation Comme nts BUN/Creatinine Ratio (test c ode = 03578899) 7.3 [facility] FatKP67994-22-28 17:14:00* Test Item Value Reference Range Interpretation Comme nts Carbon Dioxide Level (test c ode = 10239736) 22 [facility] CtrAnion gap phbovpafvjk0381-36-77 17:14:00* Test Item Value Reference Range Interpretation Comme nts Anion Gap (test code = 89251391) 16.6 [facility] CtrCalcium ccjmw6473-68-11 17:14:00* Test Item Value Reference Range Interpretation Comme nts Calcium Level (test code = 66704516) 9.9 [facility] CtrGlobulin nsu7717-26-94 17:14:00* Test Item Value Reference Range Interpretation Comme nts Globulin (test code = 770741749) 3.1 [facility] CtrALT (SGPT) ser/pjvf1157-25-95 17:14:00* Test Item Value Reference Range Interpretation Comme nts Alanine Aminotransferase (AL T/SGPT) (test code = 1742-6) 10 [facility] [place] CtrAmylase [id number] 17:14:00* Test Item Value Reference Range Interpretation Comme nts Amylase Level (test code = 1798-8) 48 [facility] AnzVeecmk0705-05-24 17:14:00* Test Item Value Reference Range Interpretation Comme nts Lipase (test code = 02343858) 24 [facility] CtrALP ser/gplu1283-18-39 17:14:00* Test Item Value Reference Range Interpretation Comme nts Total Alkaline Phosphatase ( test code = 6768-6) 92 [facility] CtrOpiates [id number] 17:13:00* Test Item Value Reference Range Interpretation Comme nts Urine Opiates Screen (test c ode = 105212539) NEGATIVE [facility] [place] CtrUrine hydrocodone measurement (mass/volume) 2024-04-10 17:13:00* Test Item Value Reference Range Interpretation Comme nts Hydrocodone Level (test code = 3681-4) [facility] by confirmatory method (mass/volume)2024-04-10 17:13:00* Test Item Value Reference Range Interpretation Comme nts Urine Fentanyl Screen (test code = 93530-9) NEGATIVE [facility] [place] CtrPhencyclidine (PCP) [id number] 17:13:00* Test Item Value Reference Range Interpretation Comme nts Urine Phencyclidine (PCP) [place] (test code = 353575235) NEGATIVE [facility] [place] CtrPropoxyphene [Mass/volume] in [id number] 17:13:00* Test Item Value Reference Range Interpretation Comme nts Propoxyphene Level (test cod e = 3545-1) NEGATIVE [facility] CtroxyCODONE [Mass/volume] in Guatp9412-15-40 17:13:00* Test Item Value Reference Range Interpretation Comme nts Oxycodone Level (test code = 94255-9) NEGATIVE [facility] [place] CtrAmphetamine ur [id number] 17:13:00* Test Item Value Reference Range Interpretation Comme nts Urine Amphetamines Screen (t est code = 05034-6) NEGATIVE [facility] KgsHnvjfxwfx6204-60-99 17:13:00* Test Item Value Reference Range Interpretation Comme nts Methadone Level (test code = YGN5792) NEGATIVE [facility] CtrBenzodiazepines screen ow0191-51-07 17:13:00* Test Item Value Reference Range Interpretation Comme nts Urine Benzodiazepines Screen (test code = 477922815) POSITIVE [facility] CtrCannabinoids (7-qmeajnq-FLH) vzczefaijkt9232-29-99 17:13:00* Test Item Value Reference Range Interpretation Comme nts Urine Cannabinoids (test cod e = 092165915) NEGATIVE [facility] CtrCocaine metabolite mhteln7234-17-02 17:13:00* Test Item Value Reference Range Interpretation Comme nts Urine Cocaine Metabolite (te st code = 835504258) NEGATIVE [facility] CtrUrine leukocyte esterase qxxhjxzdz0276-10-74 17:10:00* Test Item Value Reference Range Interpretation Comme nts Urine Leukocyte Esterase (te st code = 080879337) 3+ [facility] CtrRBC count ur vllo7364-49-86 17:08:00* Test Item Value Reference Range Interpretation Comme nts Urine RBC (test code = 798-9) 0-2 [facility] CtrUrine examination for white blood cells (WBC) 2024-04-10 17:08:00* Test Item Value Reference Range Interpretation Comme nts Urine WBC (test code = 364845195) >100 [facility] CtrAutomated epithelial cells count in urine sediment (number/area)2024-04-10 17:08:00* Test Item Value Reference Range Interpretation Comme nts Urine Epithelial Cells (test code = 16557-4) 6-10 [facility] CtrBacteria detection in urine sediment by light akglecwuvt2831-82-34 17:08:00* Test Item Value Reference Range Interpretation Comme [facility] Urine Bacteria (test code = 17056-2) Few [facility] CtrUrine casts detection by automated method 2024-04-10 17:08:00* Test Item Value Reference Range Interpretation Comme nts Urine Casts (test code = 31540-3) 0-2 [facility] CtrHCG ur [id number] 17:03:00* Test Item Value Reference Range Interpretation Comme nts Urine HCG, Qualitative (test code = 2106-3) NEGATIVE [facility] CtrColor of Urine by Ogft8941-61-10 17:03:00* Test Item Value Reference Range Interpretation Comme nts Urine Color (test code = 13425-8) Yellow [facility] CtrAppearance of Neqbv5744-65-01 17:03:00* Test Item Value Reference Range Interpretation Comme nts Urine Appearance (test code = 5767-9) Cloudy [facility] CtrUrine glucose zdtmefsmd1783-56-47 17:03:00* Test Item Value Reference Range Interpretation Comme nts Urine Glucose (UA) (test cod e = 2349-9) Negative [facility] CtrBilirubin cl4695-76-39 17:03:00* Test Item Value Reference Range Interpretation Comme nts Urine Bilirubin (test code = 157508451) Negative [facility] CtrKetones gm8663-92-52 17:03:00* Test Item Value Reference Range Interpretation Comme nts Urine Ketones (test code = 79550486) Negative [facility] CtrSpecific gravity of Urine by Automated test strip 2024-04-10 17:03:00* Test Item Value Reference Range Interpretation Comme nts Urine Specific Joaquin (test code = 01321-7) [facility].006 [facility] pvsrkobcw8911-66-91 17:03:00* Test Item Value Reference Range Interpretation Comme nts Urine Blood (test code = 76380-1) Nonhemolyzed Trace [facility] CtrpH ny8977-40-06 17:03:00* Test Item Value Reference Range Interpretation Comme nts Urine pH (test code = 2756-5) 6.000 [facility] CtrProtein qq1641-97-40 17:03:00* Test Item Value Reference Range Interpretation Comme nts Urine Protein (test code = 75549990) Negative [facility] CtrUrobilinogen, urine, po1845-65-90 17:03:00* Test Item Value Reference Range Interpretation Comme nts Urine Urobilinogen (test cod e = 478583344) 0.2 [facility] btodasxul5009-20-55 17:03:00* Test Item Value Reference Range Interpretation Comme nts Urine Nitrate (test code = 51364-5) Negative [facility] CtrAbsolute eosinophil qjtxi0662-86-24 17:00:00* Test Item Value Reference Range Interpretation Comme nts Eosinophils # (Auto) (test c ode = MBS1797) 0.25 [facility] CtrRBC vdbrq8191-31-77 17:00:00* Test Item Value Reference Range Interpretation Comme [facility] Red Blood Count (test code = 82979752) 5.17 [facility] MhfLkuxqcxvfz0527-44-39 17:00:00* Test Item Value Reference Range Interpretation Comme [facility] Hematocrit (test code = 16618379) 41.9 [facility] CtrMCV (mean corpuscular volume) determination 2024-04-10 17:00:00* Test Item Value Reference Range Interpretation Comme [facility] Mean Corpuscular Volume (shailesh t code = 22681-8) 81.0 [facility] CtrMean corpuscular hemoglobin (MCH) determination 2024-04-10 17:00:00* Test Item Value Reference Range Interpretation Comme [facility] Mean Corpuscular Hemoglobin (test code = 41847035) 26.1 [facility] hemoglobin concentration (MCHC) avphdehoynqlq6497-18-35 17:00:00* Test Item Value Reference Range Interpretation Comme [facility] Mean Corpuscular Hemoglobin Concent (test code = 79428433) 32.2 [facility] CtrRBC distribution width coefficient of variation 2024-04-10 17:00:00* Test Item Value Reference Range Interpretation Comme [facility] Red Cell Distribution Width (test code = 92327678) 15.2 [facility] CtrPlatelet qfmuu5552-61-53 17:00:00* Test Item Value Reference Range Interpretation Comme [facility] Platelet Count (test code = 39181953) 343 [facility] CtrMean platelet fsrfok8420-63-80 17:00:00* Test Item Value Reference Range Interpretation Comme [facility] Mean Platelet Volume (test c ode = 76541206) 9.3 [facility] CtrNeutrophils seg % foa8068-29-97 17:00:00* Test Item Value Reference Range Interpretation Comme [facility] Neutrophils (%) (Auto) (test code = 08842-9) 71.4 [facility] CtrAbsolute immature granulocyte ywogo8705-76-45 17:00:00* Test Item Value Reference Range Interpretation Comme nts Absolute Immature Granulocyt e (auto (test code = 32891-9) 0.05 [facility] CtrBlood band neutrophils count (number/volume) 2024-04-10 17:00:00* Test Item Value Reference Range Interpretation Comme nts Neutrophils # (Auto) (test c ode = 60729-5) 8.20 [facility] CtrAbsolute lymphocyte vktpb7545-94-20 17:00:00* Test Item Value Reference Range Interpretation Comme nts Lymphocytes # (Auto) (test c ode = 55381-4) 2.42 [facility] CtrAbsolute basophil dbfht4757-60-96 17:00:00* Test Item Value Reference Range Interpretation Comme nts Basophils # (Auto) (test cod e = 90218330) 0.03 [facility] CtrAbsolute NRBC ammla8781-44-76 17:00:00* Test Item Value Reference Range Interpretation Comme nts Nucleated Red Blood Cells # (test code = 714056416) 0 [facility] CtrCT ABDOMEN PELVIS WO BBFDFMQN7063-24-78 00:27:38 Ordering Physician: JACQUE ROJO Clinical indication: [...] the spine.Multilevel lumbar central canal stenosis is present.[facility] Metabolic Jhoef9982-26-91 23:13:34* Test Item Value Reference Range Interpretation Comme nts NA (test code = 6039324796) 136 mmol/L 135-145 K (test code = 7763981586) 3.7 mmol/L 3.5-5.0 CL (test code = 2417612650) 106 mmol/L 98-108 CO2 TOTAL (test code = 7735942399) 20 mmol/L 23-31 L AGAP (test code = 2831494028) 10 2-16 BUN (test code = 5608545805) 6 mg/dL 7-23 L GLUCOSE (test code = 0212688026) 149 mg/dL 70-110 H CREATININE (test code = 2160-0) 0.63 mg/dL 0.50-1.04 TOTAL BILI (test code = 1492824581) 0.3 mg/dL 0.1-1.1 CALCIUM (test code = 6796775605) 9.2 mg/dL 8.6-10.6 T PROTEIN (test code = 1287863428) 7.4 g/dL 6.3-8.2 ALBUMIN (test code = 6925225025) 4.3 g/dL 3.5-5.0 ALK PHOS (test code = 2604041540) 74 U/L 34-122 ALTv (test code = 1742-6) 20 U/L 5-35 AST(SGOT) (test code = 4333777162) 22 U/L 13-40 eGFR (test code = 36945-5) 111.6 mL/min/1.73m2 CKD-EPI eGFR (2020). Assuming creatinine has been stable day-to-day for at least three months, the eGFR indicates Category G1 (>= 90 mL/min/1.73 m2) Lab Interpretation (test code = 49006-2) Abnormal [facility] LancasterLip[facility], Kurvm5379-14-52 23:12:53* Test Item Value Reference Range Interpretation Comme nts LIPASE (test code = 3266044123) 104 U/L 0-220 Lab Interpretation (test cod e = 44037-2) Normal [facility] LancasterPO[facility] Oysn9259-75-70 23:01:00* Test Item Value Reference Range Interpretation Comme nts POCT PREG (test code = 1605) Negative On board controls acceptable with C Line (test code = 3574) Yes POCT PREG LOT # (test code = 3575) [id number] POCT PREG TEST DATE ( test code = 3576) Lab Interpretation (test cod e = 38517-7) Normal [facility] with Alnhnauzrpbi5900-14-92 23:00:31* Test Item Value Reference Range Interpretation [...] 33.0 g/dL 31.6-35.1 RDW-SD (test code = 64827-0) 45.5 fL 39.0-49.9 RDW-CV (test code = 788-0) 15.3 % 12.0-15.5 PLT (test code = 777-3) 370 166-358 H MPV (test code = 11687-9) 9.3 fL 9.5-12.9 L NRBC/100 WBC (test code = 7980007411) 0.0 0.0-10.0 NRBC x10^3 (test code = 1517804355) See_Comment [Automated messa ge] The system which generated this result transmitted reference range: 10*3/?L. The reference range was not used to interpret this result as normal/abnormal. GRAN MAT (NEUT) % (test code = 770-8) 71.8 % IMM GRAN % (test code = 7648644094) 0.60 % LYMPH % (test code = 736-9) 20.9 % MONO % (test code = 5905-5) 4.9 % EOS % (test code = 713-8) 1.4 % BASO % (test code = 706-2) 0.4 % GRAN MAT x10^3(ANC) (test code = 9356818967) 9.75 10*3/uL 1.88-7.09 H IMM GRAN x10^3 (test code = 0913296776) 0.08 10*3/uL 0.00-0.06 H LYMPH x10^3 (test code = 731-0) 2.83 10*3/uL 1.32-3.29 MONO x10^3 (test code = 742-7) 0.66 10*3/uL 0.33-0.92 EOS x10^3 (test code = 711-2) 0.19 10*3/uL 0.03-0.39 BASO x10^3 (test code = 704-7) 0.05 10*3/uL 0.01-0.07 Lab Interpretation (test code = 85446-1) [facility] ABDOM[facility] PELVIS W YQPCQQTT8608-19-87 05:07:16ORDERING PHYSICIAN:BOB MUSA CLINICAL INFORMATION: ? Abdominal [...] are clear. There are nosuspicious focal osseous lesions.[facility] Complete Metabolic Czeea1432-83-56 04:38:59* Test Item Value Reference Range Interpretation Comme nts NA (test code = 0147597101) 138 mmol/L 135-145 K (test code = 6394763335) 3.7 mmol/L 3.5-5.0 CL (test code = 5328799434) 108 mmol/L 98-108 CO2 TOTAL (test code = 7186432265) 22 mmol/L 23-31 L AGAP (test code = 8098340331) 8 2-16 BUN (test code = 1668657568) 12 mg/dL 7-23 GLUCOSE (test code = 8069394152) 98 mg/dL 70-110 CREATININE (test code = 2160-0) 0.62 mg/dL 0.50-1.04 TOTAL BILI (test code = 3137614876) 0.4 mg/dL 0.1-1.1 CALCIUM (test code = 4245796724) 8.9 mg/dL 8.6-10.6 T PROTEIN (test code = 5586128457) 7.1 g/dL 6.3-8.2 ALBUMIN (test code = 4616130056) 3.8 g/dL 3.5-5.0 ALK PHOS (test code = 1442800442) 89 U/L 34-122 ALTv (test code = 1742-6) 17 U/L 5-35 AST(SGOT) (test code = 4880821526) 22 U/L 13-40 eGFR (test code = 10667-3) 112.8 mL/min/1.73m2 CKD-EPI eGFR (2020). Assuming creatinine has been stable day-to-day for at least three months, the eGFR indicates Category G1 (>= 90 mL/min/1.73 m2) Lab Interpretation (test code = 97937-0) [facility] Lancaster[facility], Xppmj4366-33-10 04:38:58* Test Item Value Reference Range Interpretation Comme nts LIPASE (test code = 1730268669) 136 U/L 0-220 Lab Interpretation (test cod e = 08643-2) Normal [facility] with Tzgvdkgyqpdy9931-55-95 04:19:14* Test Item Value Reference Range Interpretation [...] 32.2 g/dL 31.6-35.1 RDW-SD (test code = 03490-4) 50.2 fL 39.0-49.9 H RDW-CV (test code = 788-0) 17.3 % 12.0-15.5 H PLT (test code = 777-3) 377 166-358 H MPV (test code = 44771-6) 9.4 fL 9.5-12.9 L NRBC/100 WBC (test code = 7265620181) 0.0 0.0-10.0 NRBC x10^3 (test code = 4803185708) See_Comment [Automated messa ge] The system which generated this result transmitted reference range: 10*3/?L. The reference range was not used to interpret this result as normal/abnormal. GRAN MAT (NEUT) % (test code = 770-8) 65.3 % IMM GRAN % (test code = 0279967451) 0.40 % LYMPH % (test code = 736-9) 26.1 % MONO % (test code = 5905-5) 6.2 % EOS % (test code = 713-8) 1.6 % BASO % (test code = 706-2) 0.4 % GRAN MAT x10^3(ANC) (test code = 0729101680) 7.33 10*3/uL 1.88-7.09 H IMM GRAN x10^3 (test code = 8812253339) 0.04 10*3/uL 0.00-0.06 LYMPH x10^3 (test code = 731-0) 2.93 10*3/uL 1.32-3.29 MONO x10^3 (test code = 742-7) 0.70 10*3/uL 0.33-0.92 EOS x10^3 (test code = 711-2) 0.18 10*3/uL 0.03-0.39 BASO x10^3 (test code = 704-7) 0.05 10*3/uL 0.01-0.07 Lab Interpretation (test code = 97724-7) Abnormal [facility] REPW7342-80-93 03:40:00* Test Item Value Reference Range Interpretation Comme nts POCT PREG (test code = 1605) Negative On board controls acceptable with C Line (test code = 3574) Yes POCT PREG LOT # (test code = 3575) [id number] POCT PREG TEST DATE ( test code = 3576) 2024-10-13 Lab Interpretation (test cod e = 85766-5) [facility] [id number] 04:35:04Ordering physician: ROBERTO RICHARDS INDICATION: Abdominal pain COMPARISON: CT of the abdomen and pelv is dated 03/09/2023 FINDINGS: Supine AP view of the abdomen and pelvis. There is no bowelobstruction or generalized constipation.[facility] Zddz0119-22-51 02:30:00* Test Item Value Reference Range Interpretation Comme nts POCT PREG (test code = 1605) Negative On board controls acceptable with C Line (test code = 3574) Yes POCT PREG LOT # (test code = 3575) [id number] POCT PREG TEST DATE ( test code = 3576) 2024-09-15 Lab Interpretation (test cod e = 24755-0) Normal [facility] WITH [id number] 00:05:06* Test Item Value Reference Range Interpretation [...] 34.2 g/dL 31.6-35.1 RDW-SD (test code = 44020-4) 41.5 fL 39.0-49.9 RDW-CV (test code = 788-0) 14.5 % 12.0-15.5 PLT (test code = 777-3) 384 See_Comment H [Automated messa ge] The system which generated this result transmitted reference range: 166 - 358 10*3/?L. The reference range was not used to interpret this result as normal/abnormal. MPV (test code = 95833-6) 9.6 fL 9.5-12.9 GRAN MAT (NEUT) % (test code = 770-8) 66.0 % IMM GRAN % (test code = 4082216590) 0.50 % LYMPH % (test code = 736-9) 27.4 % MONO % (test code = 5905-5) 4.6 % EOS % (test code = 713-8) 1.1 % BASO % (test code = 706-2) 0.4 % GRAN MAT x10^3(ANC) (test code = 8891686888) 7.96 10*3/uL 1.88-7.09 H IMM GRAN x10^3 (test code = 4937957106) 0.06 10*3/uL 0.00-0.06 LYMPH x10^3 (test code = 731-0) 3.30 10*3/uL 1.32-3.29 H MONO x10^3 (test code = 742-7) 0.56 10*3/uL 0.33-0.92 EOS x10^3 (test code = 711-2) 0.13 10*3/uL 0.03-0.39 BASO x10^3 (test code = 704-7) 0.05 10*3/uL 0.01-0.07 Lab Interpretation (test code = 18959-7) Abnormal [facility]. METABOLIC PANEL (92525)2023-05-09 23:27:13* Test Item Value Reference Range Interpretation Comme nts NA (test code = 0421178422) 137 mmol/L 135-145 K (test code = 9446982851) 3.3 mmol/L 3.5-5.0 L CL (test code = 8442527436) 103 mmol/L 98-108 CO2 TOTAL (test code = 2941771158) 20 mmol/L 23-31 L AGAP (test code = 0116210528) 14 2-16 BUN (test code = 4021606467) 5 mg/dL 7-23 L GLUCOSE (test code = 2312519091) 146 mg/dL 70-110 H CREATININE (test code = 3672107380) 0.60 mg/dL 0.50-1.04 TOTAL BILI (test code = 7977430832) 0.3 mg/dL 0.1-1.1 CALCIUM (test code = 1008177872) 9.3 mg/dL 8.6-10.6 T PROTEIN (test code = 3187101853) 7.9 g/dL 6.3-8.2 ALBUMIN (test code = 2023973368) 4.4 g/dL 3.5-5.0 ALK PHOS (test code = 0909918109) 105 U/L 34-122 ALTv (test code = 1742-6) 38 U/L 5-35 H AST(SGOT) (test code = 4339264916) 21 U/L 13-40 eGFR (test code = 93328-1) 113.7 mL/min/1.73m2 CKD-EPI eGFR (2020). Assuming creatinine has been stable day-to-day for at least three months, the eGFR indicates Category G1 (>= 90 mL/min/1.73 m2) Lab Interpretation (test code = 60143-0) [facility]2023-[facility] 23:27:13* Test Item Value Reference Range Interpretation Comme nts LIPASE (test code = 7161758901) 142 U/L 0-220 Lab Interpretation (test cod e = 32548-5) Normal [facility]. METABOLIC PANEL (41772)2023-04-30 23:41:47* Test Item Value Reference Range Interpretation Comme nts NA (test code = 4774008688) 139 mmol/L 135-145 K (test code = 1752168562) 3.3 mmol/L 3.5-5.0 L CL (test code = 0177159371) 105 mmol/L 98-108 CO2 TOTAL (test code = 7045953409) 20 mmol/L 23-31 L AGAP (test code = 4611373598) 14 2-16 BUN (test code = 4973337531) 6 mg/dL 7-23 L GLUCOSE (test code = 0684799523) 119 mg/dL 70-110 H CREATININE (test code = 0973672874) 0.59 mg/dL 0.50-1.04 TOTAL BILI (test code = 6748338772) 0.3 mg/dL 0.1-1.1 CALCIUM (test code = 0543447269) 9.7 mg/dL 8.6-10.6 T PROTEIN (test code = 4980732204) 7.6 g/dL 6.3-8.2 ALBUMIN (test code = 6404754693) 4.2 g/dL 3.5-5.0 ALK PHOS (test code = 4725016826) 78 U/L 34-122 ALTv (test code = 1742-6) 24 U/L 5-35 AST(SGOT) (test code = 8069837127) 24 U/L 13-40 eGFR (test code = 6550740486) 110.7 mL/min/1.73m2 DARWIN (test code = DARWIN) [...] imaging tests). Lab Interpretation (test code = 67382-8) Abnormal [facility] WITH [id number] 23:29:07* Test Item Value Reference Range Interpretation Comme nts WBC (test code = 6690-2) 11.56 See_Comment H [Automated mention] The system which generated this result transmitted reference range: 4.30 - 11.10 10*3/?L. The reference range was not used to interpret this result as normal/abnormal. RBC (test code = 789-8) 5.02 See_Comment [Automated mention] The system which generated this result transmitted [...] 33.7 g/dL 31.6-35.1 RDW-SD (test code = 04061-2) 41.5 fL 39.0-49.9 RDW-CV (test code = 788-0) 14.3 % 12.0-15.5 PLT (test code = 777-3) 335 See_Comment [Automated messa ge] The system which generated this result transmitted reference range: 166 - 358 10*3/?L. The reference range was not used to interpret this result as normal/abnormal. MPV (test code = 19036-6) 9.7 fL 9.5-12.9 NRBC/100 WBC (test code = 0448717113) 0.0 See_Comment [Automated me ssage] The system which generated this result transmitted reference range: 0.0 - 10.0 /100 WBCs. The reference range was not used to interpret this result as normal/abnormal. NRBC x10^3 (test code = 6076108610) See_Comment [Automated messa ge] The system which generated this result transmitted reference range: 10*3/?L. The reference range was not used to interpret this result as normal/abnormal. GRAN MAT (NEUT) % (test code = 770-8) 65.7 % IMM GRAN % (test code = 6024141804) 0.50 % LYMPH % (test code = 736-9) 25.4 % MONO % (test code = 5905-5) 6.7 % EOS % (test code = 713-8) 1.2 % BASO % (test code = 706-2) 0.5 % GRAN MAT x10^3(ANC) (test code = 0480190517) 7.59 10*3/uL 1.88-7.09 H IMM GRAN x10^3 (test code = 0506244584) 0.06 10*3/uL 0.00-0.06 LYMPH x10^3 (test code = 731-0) 2.94 10*3/uL 1.32-3.29 MONO x10^3 (test code = 742-7) 0.77 10*3/uL 0.33-0.92 EOS x10^3 (test code = 711-2) 0.14 10*3/uL 0.03-0.39 BASO x10^3 (test code = 704-7) 0.06 10*3/uL 0.01-0.07 Lab Interpretation (test code = 47410-0) Abnormal [facility] [id number] 22:59:00* Test Item Value Reference Range Interpretation Comme nts POCT PREG (test code = 1605) Negative On board controls acceptable with C Line (test code = 3574) Yes POCT PREG LOT # (test code = 3575) [id number] POCT PREG TEST DATE ( test code = 3576) 07/10/2024 Lab Interpretation (test cod e = 68460-7) [facility] [id number] 02:36:34* Test Item Value Reference Range Interpretation Comme nts TROPONIN I (test code = 2239375471) 0.000 ng/mL <=0.034 DARWIN (test code = [...] of biotin. Lab Interpretation (test code = 06141-6) Normal [facility]-TERMINAL VAK-YMM5562-66-11 02:34:17* Test Item Value Reference Range Interpretation Comme [facility] NT-proBNP (test code = 81354-3) 40 pg/mL <=125 Lab Interpretation (test cod e = 03861-2) Normal [facility] LancasterACTIVATED PARTIAL THRMPLAS [id number] 02:33:37* Test Item Value Reference Range Interpretation Comme [facility] APTT Patient (test code = 3173-2) 25 See_Comment [Automated message] The system which generated this result transmitted reference range: 23 - 38 Seconds. The reference range was not used to interpret this result as normal/abnormal. DARWIN (test code = DARWIN) The [facility] patient population mean normal value for aPTT is 30 seconds. Lab Interpretation (test code = 04739-6) Normal [facility] LancasterPROTHROMBIN TIME / [id number] 02:31:36* Test Item Value Reference Range Interpretation Comme [facility] PROTIME PATIENT (test code = 5964-2) 12.6 See_Comment [Automated Aerovancea ge] The system which generated this result transmitted reference range: 12.0 - 14.7 Seconds. The reference range was not used to interpret this result as normal/abnormal. INR (test code = 6301-6) 1.0 Normal INR <1.1; Warfarin Therapeutic range 2.0 to 3.0 or 2.5 to 3.5, depending upon the indications. Lab Interpretation (test code = 89512-1) Normal [facility]. METABOLIC PANEL (15343)2023-04-17 02:24:56* Test Item Value Reference Range Interpretation Comme nts NA (test code = 4238861308) 142 mmol/L 135-145 K (test code = 6546274007) 3.1 mmol/L 3.5-5.0 L CL (test code = 4375290805) 108 mmol/L 98-108 CO2 TOTAL (test code = 6302612294) 20 mmol/L 23-31 L AGAP (test code = 2096714001) 14 2-16 BUN (test code = 2082558611) 4 mg/dL 7-23 L GLUCOSE (test code = 0445145223) 107 mg/dL 70-110 CREATININE (test code = 0621886381) 0.61 mg/dL 0.50-1.04 TOTAL BILI (test code = 8934129797) 0.2 mg/dL 0.1-1.1 CALCIUM (test code = 8817548561) 9.1 mg/dL 8.6-10.6 T PROTEIN (test code = 7652352280) 7.0 g/dL 6.3-8.2 ALBUMIN (test code = 5745981887) 3.9 g/dL 3.5-5.0 ALK PHOS (test code = 8956774237) 69 U/L 34-122 ALTv (test code = 1742-6) 21 U/L 5-35 AST(SGOT) (test code = 0540586747) 21 U/L 13-40 eGFR (test code = 4452504086) 106.5 mL/min/1.73m2 DARWIN (test code = DARWIN) [...] imaging tests). Lab Interpretation (test code = 84808-9) [facility]2023-[facility]-11 02:24:56* Test Item Value Reference Range Interpretation Comme nts LIPASE (test code = 2725558085) 104 U/L 0-220 Lab Interpretation (test cod e = 92123-0) [facility] WITH [id number] 02:13:31* Test Item Value Reference Range Interpretation Comme nts WBC (test code = 6690-2) 10.74 See_Comment [Automated [employer]ifiniti] The system which generated this result transmitted reference range: 4.30 - 11.10 10*3/?L. The reference range was not used to interpret this result as normal/abnormal. RBC (test code = 789-8) 4.75 See_Comment [Automated [employer]] The system which generated this result transmitted [...] 34.5 g/dL 31.6-35.1 RDW-SD (test code = 23474-9) 39.1 fL 39.0-49.9 RDW-CV (test code = 788-0) 13.5 % 12.0-15.5 PLT (test code = 777-3) 324 See_Comment [Automated messa ge] The system which generated this result transmitted reference range: 166 - 358 10*3/?L. The reference range was not used to interpret this result as normal/abnormal. MPV (test code = 10605-4) 9.3 fL 9.5-12.9 L NRBC/100 WBC (test code = [id number]) 0.0 See_Comment [Automated Silent Communication ssage] The system which generated this result transmitted reference range: 0.0 - 10.0 /100 WBCs. The reference range was not used to interpret this result as normal/abnormal. NRBC x10^3 (test code = [id number]) See_Comment [Automated [employer] ge] The system which generated this result transmitted reference range: 10*3/?L. The reference range was not used to interpret this result as normal/abnormal. GRAN MAT (NEUT) % (test code = 770-8) 65.2 % IMM GRAN % (test code = [id number]) 0.40 % LYMPH % (test code = 736-9) 26.5 % MONO % (test code = 5905-5) 5.8 % EOS % (test code = 713-8) 1.7 % BASO % (test code = 706-2) 0.4 % GRAN MAT x10^3(ANC) (test code = 1600723582) 7.01 10*3/uL 1.88-7.09 IMM GRAN x10^3 (test code = 7938722216) 0.04 10*3/uL 0.00-0.06 LYMPH x10^3 (test code = 731-0) 2.85 10*3/uL 1.32-3.29 MONO x10^3 (test code = 742-7) 0.62 10*3/uL 0.33-0.92 EOS x10^3 (test code = 711-2) 0.18 10*3/uL 0.03-0.39 BASO x10^3 (test code = 704-7) 0.04 10*3/uL 0.01-0.07 Lab Interpretation (test code = 84205-3) [facility] [id number] 02:11:00* Test Item Value Reference Range Interpretation Comme nts POCT PREG (test code = 1605) Negative On board controls acceptable with C Line (test code = 3574) Yes POCT PREG LOT # (test code = 3575) [id number] POCT PREG TEST DATE ( test code = 3576) 2024-09-04 Lab Interpretation (test cod e = 41262-2) [facility] [id number] 23:59:14* Test Item Value Reference Range Interpretation Comme nts TROPONIN I (test code = 5804304836) 0.000 ng/mL <=0.034 DARWIN (test code = [...] of biotin. Lab Interpretation (test code = 42895-1) Normal [facility]. METABOLIC PANEL (65382)2023-04-08 23:47:52* Test Item Value Reference Range Interpretation Comme nts NA (test code = 8640391347) 138 mmol/L 135-145 K (test code = 7854826650) 3.4 mmol/L 3.5-5.0 L CL (test code = 2338761478) 103 mmol/L 98-108 CO2 TOTAL (test code = 6216912212) 22 mmol/L 23-31 L AGAP (test code = 9933188703) 13 2-16 BUN (test code = 4447468479) 6 mg/dL 7-23 L GLUCOSE (test code = 4464692898) 106 mg/dL 70-110 CREATININE (test code = 4015812604) 0.91 mg/dL 0.50-1.04 TOTAL BILI (test code = 0006175636) 0.2 mg/dL 0.1-1.1 CALCIUM (test code = 5020320474) 8.7 mg/dL 8.6-10.6 T PROTEIN (test code = 6567102277) 7.4 g/dL 6.3-8.2 ALBUMIN (test code = 0446687886) 4.1 g/dL 3.5-5.0 ALK PHOS (test code = 6686972543) 71 U/L 34-122 ALTv (test code = 1742-6) 28 U/L 5-35 AST(SGOT) (test code = 8545759319) 28 U/L 13-40 eGFR (test code = 8335925811) 67.2 mL/min/1.73m2 DARWIN (test code = DARWIN) [...] imaging tests). Lab Interpretation (test code = 20007-4) [facility] 23:47:52* Test Item Value Reference Range Interpretation Comme nts MAGNESIUM (test code = 1336633954) 2.0 mg/dL 1.7-2.4 Lab Interpretation (test cod e = 17150-2) [facility] 23:47:52* Test Item Value Reference Range Interpretation Comme nts LIPASE (test code = 8479522825) 74 U/L 0-220 Lab Interpretation (test cod e = 64880-1) [facility] WITH [id number] 23:36:30* Test Item Value Reference Range Interpretation Comme nts WBC (test code = 6690-2) 9.95 See_Comment [Automated [employer]] The system which generated this result transmitted reference range: 4.30 - 11.10 10*3/?L. The reference range was not used to interpret this result as normal/abnormal. RBC (test code = 789-8) 5.29 See_Comment H [Automated [employer]] The system which generated this result transmitted [...] 34.5 g/dL 31.6-35.1 RDW-SD (test code = 04778-6) 39.3 fL 39.0-49.9 RDW-CV (test code = 788-0) 13.6 % 12.0-15.5 PLT (test code = 777-3) 305 See_Comment [Automated messa ge] The system which generated this result transmitted reference range: 166 - 358 10*3/?L. The reference range was not used to interpret this result as normal/abnormal. MPV (test code = 23168-9) 9.6 fL 9.5-12.9 NRBC/100 WBC (test code = 8609921455) 0.0 See_Comment [Automated [employer] ssage] The system which generated this result transmitted reference range: 0.0 - 10.0 /100 WBCs. The reference range was not used to interpret this result as normal/abnormal. NRBC x10^3 (test code = 0526989619) See_Comment [Automated Aerov[employer] ge] The system which generated this result transmitted reference range: 10*3/?L. The reference range was not used to interpret this result as normal/abnormal. GRAN MAT (NEUT) % (test code = 770-8) 66.5 % IMM GRAN % (test code = 0663478757) 0.30 % LYMPH % (test code = 736-9) 25.3 % MONO % (test code = 5905-5) 5.2 % EOS % (test code = 713-8) 2.3 % BASO % (test code = 706-2) 0.4 % GRAN MAT x10^3(ANC) (test code = 5560711982) 6.61 10*3/uL 1.88-7.09 IMM GRAN x10^3 (test code = 6892779228) 0.03 10*3/uL 0.00-0.06 LYMPH x10^3 (test code = 731-0) 2.52 10*3/uL 1.32-3.29 MONO x10^3 (test code = 742-7) 0.52 10*3/uL 0.33-0.92 EOS x10^3 (test code = 711-2) 0.23 10*3/uL 0.03-0.39 BASO x10^3 (test code = 704-7) 0.04 10*3/uL 0.01-0.07 Lab Interpretation (test code = 94768-5) Abnormal [facility] [id number] 02:51:00* Test Item Value Reference Range Interpretation Comme nts POCT PREG (test code = 1605) Negative On board controls acceptable with C Line (test code = 3574) Yes POCT PREG LOT # (test code = 3575) [id number] POCT PREG TEST DATE ( test code = 3576) 07/10/2024 Lab Interpretation (test cod e = 90972-7) Normal [facility] [id number] 03:26:00* Test Item Value Reference Range Interpretation Comme nts POCT PREG (test code = 1605) Negative On board controls acceptable with C Line (test code = 3574) Yes POCT PREG LOT # (test code = 3575) [id number] POCT PREG TEST DATE ( test code = 3576) Lab Interpretation (test cod e = 82466-3) [facility]23-[facility] 22:35:38* Test Item Value Reference Range Interpretation Comme nts LIPASE (test code = 0980204451) 2049 U/L 0-220 H Lab Interpretation (test cod e = 98153-5) Abnormal [facility] WITH [id number] 22:30:10* Test Item Value Reference Range Interpretation [...] 34.6 g/dL 31.6-35.1 RDW-SD (test code = 99474-5) 42.7 fL 39.0-49.9 RDW-CV (test code = 788-0) 14.6 % 12.0-15.5 PLT (test code = 777-3) 331 See_Comment [Automated messa ge] The system which generated this result transmitted reference range: 166 - 358 10*3/?L. The reference range was not used to interpret this result as normal/abnormal. MPV (test code = 50246-5) 9.7 fL 9.5-12.9 NRBC/100 WBC (test code = 9033415481) 0.0 See_Comment [Automated [employer]ent [employer] ssage] The system which generated this result transmitted reference range: 0.0 - 10.0 /100 WBCs. The reference range was not used to interpret this result as normal/abnormal. NRBC x10^3 (test code = 6176369965) See_Comment [Automated messa ge] The system which generated this result transmitted reference range: 10*3/?L. The reference range was not used to interpret this result as normal/abnormal. GRAN MAT (NEUT) % (test code = 770-8) 65.7 % IMM GRAN % (test code = 3425727412) 0.50 % LYMPH % (test code = 736-9) 26.5 % MONO % (test code = 5905-5) 5.4 % EOS % (test code = 713-8) 1.5 % BASO % (test code = 706-2) 0.4 % GRAN MAT x10^3(ANC) (test code = 2512881166) 8.05 10*3/uL 1.88-7.09 H IMM GRAN x10^3 (test code = 5910018324) 0.06 10*3/uL 0.00-0.06 LYMPH x10^3 (test code = 731-0) 3.24 10*3/uL 1.32-3.29 MONO x10^3 (test code = 742-7) 0.66 10*3/uL 0.33-0.92 EOS x10^3 (test code = 711-2) 0.18 10*3/uL 0.03-0.39 BASO x10^3 (test code = 704-7) 0.05 10*3/uL 0.01-0.07 Lab Interpretation (test code = 95376-0) Abnormal [facility]. METABOLIC PANEL (71839)2023-02-15 22:27:47* Test Item Value Reference Range Interpretation Comme nts NA (test code = 1744280786) 138 mmol/L 135-145 K (test code = 4720273323) 3.7 mmol/L 3.5-5.0 CL (test code = 8362283711) 105 mmol/L 98-108 CO2 TOTAL (test code = 5330605585) 23 mmol/L 23-31 AGAP (test code = 4395118496) 10 2-16 BUN (test code = 4779451112) 6 mg/dL 7-23 L GLUCOSE (test code = 3818684116) 92 mg/dL 70-110 CREATININE (test code = 2787324695) 0.77 mg/dL 0.50-1.04 TOTAL BILI (test code = 4811538401) 0.7 mg/dL 0.1-1.1 CALCIUM (test code = 3602221915) 9.0 mg/dL 8.6-10.6 T PROTEIN (test code = 2561094725) 7.5 g/dL 6.3-8.2 ALBUMIN (test code = 1216307991) 4.0 g/dL 3.5-5.0 ALK PHOS (test code = 6674965767) 101 U/L 34-122 ALTv (test code = 1742-6) 25 U/L 5-35 AST(SGOT) (test code = 4656732487) 36 U/L 13-40 eGFR (test code = 2993445534) 81.8 mL/min/1.73m2 DARWIN (test code = DARWIN) [...] imaging tests). Lab Interpretation (test code = 14785-8) [facility]1951-[facility]-40 20:56:28* Test Item Value Reference Range Interpretation Comments D-DIMER (test code = 9189979090) 0.44 See_Comment H [Automated message] The system [...] a diagnosis. Lab Interpretation (test code = 81827-0) Abnormal [facility] [id number] 01:15:16* Test Item Value Reference Range Interpretation Comments TROPONIN I (test code = 6039477270) 0.001 ng/mL See_Comment [Automated message] The system [...] of biotin. Lab Interpretation (test code = 39273-0) Normal [facility] [id number] 22:52:31* Test Item Value Reference Range Interpretation Comments TROPONIN I (test code = 5543830922) 0.001 ng/mL See_Comment [Automated message] The system [...] of biotin. Lab Interpretation (test code = 40538-4) [facility] [id number] 22:49:33* Test Item Value Reference Range Interpretation Comme nts NT-proBNP (test code = 9884526460) 145 pg/mL See_Comment H [Automated message] The system which generated this result transmitted reference range: <=125. The reference range was not used to interpret this result as normal/abnormal. DARWIN (test code = DARWIN) Biotin has been reported to cause a negative bias, interpret results relative to patient's use of biotin. Lab Interpretation (test code = 83750-7) [facility]OL[facility] (NA, K, CL, CO2, GLUCOSE, BUN, CREATININE, CA)2022-01-09 22:40:32* Test Item Value Reference Range Interpretation Comme nts NA (test code = 2143740844) 142 mmol/L 135-145 K (test code = 3823215883) 3.3 mmol/L 3.5-5.0 L CL (test code = 0765109206) 109 mmol/L 98-108 H CO2 TOTAL (test code = 2424204573) 22 mmol/L 23-31 L AGAP (test code = 1666364835) 2-16 BUN (test code = 1949870854) 9 mg/dL 7-23 GLUCOSE (test code = 6449868936) 116 mg/dL 70-110 H CREATININE (test code = 2760283948) 0.69 mg/dL 0.50-1.04 CALCIUM (test code = 5651179485) 9.2 mg/dL 8.6-10.6 eGFR (test code = 5596106929) mL/min/1.73m2 DARWIN (test code = DARWIN) Association [...] imaging tests). Lab Interpretation (test code = 77178-9) Abnormal [facility] WITH [id number] 22:29:09* Test Item Value Reference Range Interpretation Comme nts WBC (test code = 6690-2) See_Comment [Baton] The system which generated this result transmitted reference range: 4.30 - 11.10 10*3/?L. The reference range was not used to interpret this result as normal/abnormal. RBC (test code = 789-8) See_Comment [Baton] The system which generated this result transmitted [...] 34.4 g/dL 31.6-35.1 RDW-SD (test code = 59527-9) 40.7 fL 39.0-49.9 RDW-CV (test code = 788-0) 14.1 % 12.0-15.5 PLT (test code = 777-3) See_Comment [Automated messa ge] The system which generated this result transmitted reference range: 166 - 358 10*3/?L. The reference range was not used to interpret this result as normal/abnormal. MPV (test code = 00147-2) 9.6 fL 9.5-12.9 NRBC/100 WBC (test code = 4851089575) See_Comment [Automated me ssage] The system which generated this result transmitted reference range: 0.0 - 10.0 /100 WBCs. The reference range was not used to interpret this result as normal/abnormal. NRBC x10^3 (test code = 3288373274) <0.01 See_Comment [Automated messa ge] The system which generated this result transmitted reference range: 10*3/?L. The reference range was not used to interpret this result as normal/abnormal. GRAN MAT (NEUT) % (test code = 770-8) 54.7 % IMM GRAN % (test code = 0908086979) 0.40 % LYMPH % (test code = 736-9) 33.8 % MONO % (test code = 5905-5) 7.1 % EOS % (test code = 713-8) 3.3 % BASO % (test code = 706-2) 0.7 % GRAN MAT x10^3(ANC) (test code = 6741910117) 4.87 10*3/uL 1.88-7.09 IMM GRAN x10^3 (test code = 3225859942) 0.04 10*3/uL 0.00-0.06 LYMPH x10^3 (test code = 731-0) 3.01 10*3/uL 1.32-3.29 MONO x10^3 (test code = 742-7) 0.63 10*3/uL 0.33-0.92 EOS x10^3 (test code = 711-2) 0.29 10*3/uL 0.03-0.39 BASO x10^3 (test code = 704-7) 0.06 10*3/uL 0.01-0.07 Lab Interpretation (test code = 06174-7) [facility] [id number] 06:45:45* Test Item Value Reference Range Interpretation Comments TROPONIN I (test code = 5739236621) 0.000 ng/mL See_Comment [Automated message] The system [...] of biotin. Lab Interpretation (test code = 31709-5) [facility] [id number] 05:00:55 * Test Item Value Reference Range Interpretation Comme nts TSH (test code = 1699532347) See_Comment [Automated [employer]] The system which generated this result transmitted reference range: 0.45 - 4.70 mIU/L. The reference range was not used to interpret this result as normal/abnormal. Lab Interpretation (test code = 47468-5) Normal [facility] [id number] 04:47:50* Test Item Value Reference Range Interpretation Comme nts FREE T4 (test code = 8741002087) See_Comment [Automated [employer]] The system which generated this result transmitted reference range: 0.78 - 2.20 ng/dL:. The reference range was not used to interpret this result as normal/abnormal. Lab Interpretation (test code = 25834-9) Normal [facility] [id number] 04:47:10* Test Item Value Reference Range Interpretation Comme nts FREE T3 (test code = 2938264070) 4.37 pg/mL 2.77-5.27 Lab Interpretation (test cod e = 69705-1) [facility] [id number] 04:42:07* Test Item Value Reference Range Interpretation Comments TROPONIN I (test code = 9351488470) 0.001 ng/mL See_Comment [Automated message] The system [...] of biotin. Lab Interpretation (test code = 61850-0) Normal [facility]. METABOLIC PANEL (03785)2021-12-14 04:30:28* Test Item Value Reference Range Interpretation Comme nts NA (test code = 7847004689) 141 mmol/L 135-145 K (test code = 2651793033) 3.6 mmol/L 3.5-5.0 CL (test code = 0080932573) 111 mmol/L 98-108 H CO2 TOTAL (test code = 7531392070) 19 mmol/L 23-31 L AGAP (test code = 5893541626) 2-16 BUN (test code = 5272018019) 15 mg/dL 7-23 GLUCOSE (test code = 9985261476) 113 mg/dL 70-110 H CREATININE (test code = 6783534178) 1.05 mg/dL 0.50-1.04 H TOTAL BILI (test code = 0481490486) 0.2 mg/dL 0.1-1.1 CALCIUM (test code = 4143550559) 9.8 mg/dL 8.6-10.6 T PROTEIN (test code = 6483942235) 6.8 g/dL 6.3-8.2 ALBUMIN (test code = 0966181614) 4.2 g/dL 3.5-5.0 ALK PHOS (test code = 1212597105) 73 U/L 34-122 ALTv (test code = 1742-6) 16 U/L 5-35 AST(SGOT) (test code = 9271155965) 19 U/L 13-40 eGFR (test code = 1171251955) mL/min/1.73m2 DARWIN (test code = DARWIN) Association [...] imaging tests). Lab Interpretation (test code = 21808-4) [facility] 04:29:48* Test Item Value Reference Range Interpretation Comme [facility] LIPASE (test code = 5763144946) 225 U/L 0-220 H Lab Interpretation (test cod e = 70046-9) [facility] [id number] 04:20:00* Test Item Value Reference Range Interpretation Comme nts POCT PREG (test code = 1605) negative On board controls acceptable with C Line (test code = 3574) present POCT PREG LOT # (test code = 3575) [id number] POCT PREG TEST DATE ( test code = 3576) 2023-05-07 Lab Interpretation (test cod e = 51598-2) Normal [facility] WITH [id number] 04:01:25* Test Item Value Reference Range Interpretation [...] 34.3 g/dL 31.6-35.1 RDW-SD (test code = 64374-1) 39.5 fL 39.0-49.9 RDW-CV (test code = 788-0) 13.6 % 12.0-15.5 PLT (test code = 777-3) See_Comment [Automated messa ge] The system which generated this result transmitted reference range: 166 - 358 10*3/?L. The reference range was not used to interpret this result as normal/abnormal. MPV (test code = 66347-9) 9.9 fL 9.5-12.9 NRBC/100 WBC (test code = 5344267758) See_Comment [Automated me ssage] The system which generated this result transmitted reference range: 0.0 - 10.0 /100 WBCs. The reference range was not used to interpret this result as normal/abnormal. NRBC x10^3 (test code = 1973540562) <0.01 See_Comment [Automated messa ge] The system which generated this result transmitted reference range: 10*3/?L. The reference range was not used to interpret this result as normal/abnormal. GRAN MAT (NEUT) % (test code = 770-8) 51.5 % IMM GRAN % (test code = 8203773658) 0.50 % LYMPH % (test code = 736-9) 35.8 % MONO % (test code = 5905-5) 9.4 % EOS % (test code = 713-8) 2.2 % BASO % (test code = 706-2) 0.6 % GRAN MAT x10^3(ANC) (test code = 4183583456) 5.37 10*3/uL 1.88-7.09 IMM GRAN x10^3 (test code = 7498643877) 0.05 10*3/uL 0.00-0.06 LYMPH x10^3 (test code = 731-0) 3.73 10*3/uL 1.32-3.29 H MONO x10^3 (test code = 742-7) 0.98 10*3/uL 0.33-0.92 H EOS x10^3 (test code = 711-2) 0.23 10*3/uL 0.03-0.39 BASO x10^3 (test code = 704-7) 0.06 10*3/uL 0.01-0.07 Lab Interpretation (test code = 87066-9) [facility] [id number] 04:04:13* Test Item Value Reference Range Interpretation Comments TROPONIN I (test code = 4863818874) 0.001 ng/mL See_Comment [Automated message] The system [...] of biotin. Lab Interpretation (test code = 05778-8) [facility] [id number] 02:56:00* Test Item Value Reference Range Interpretation Comme nts POCT PREG (test code = 1605) negative On board controls acceptable with C Line (test code = 3574) present POCT PREG LOT # (test code = 3575) [id number] POCT PREG TEST DATE ( test code = 3576) 2023-04-06 Lab Interpretation (test cod e = 55142-0) [facility] [id number] 02:15:30* Test Item Value Reference Range Interpretation Comments TROPONIN I (test code = 4120547271) 0.000 ng/mL See_Comment [Automated message] The system [...] of biotin. Lab Interpretation (test code = 98082-3) [facility] [id number] 02:12:14* Test Item Value Reference Range Interpretation Comme nts NT-proBNP (test code = 7045112961) 109 pg/mL See_Comment [Automated message] The system which generated this result transmitted reference range: <=125. The reference range was not used to interpret this result as normal/abnormal. DARWIN (test code = DARWIN) Biotin has been reported to cause a negative bias, interpret results relative to patient's use of biotin. Lab Interpretation (test code = 65947-2) Normal [facility]. METABOLIC PANEL (53568)2021-11-12 02:04:12* Test Item Value Reference Range Interpretation Comme nts NA (test code = 1855945539) 140 mmol/L 135-145 K (test code = 3765498766) 4.0 mmol/L 3.5-5.0 CL (test code = 7744818671) 111 mmol/L 98-108 H CO2 TOTAL (test code = 4025963228) 17 mmol/L 23-31 L AGAP (test code = 7540315889) 2-16 BUN (test code = 2758854931) 9 mg/dL 7-23 GLUCOSE (test code = 3348993929) 105 mg/dL 70-110 CREATININE (test code = 5033560790) 0.72 mg/dL 0.50-1.04 TOTAL BILI (test code = 6361952697) 0.4 mg/dL 0.1-1.1 CALCIUM (test code = 4553747577) 9.3 mg/dL 8.6-10.6 T PROTEIN (test code = 7720611186) 6.6 g/dL 6.3-8.2 ALBUMIN (test code = 6098411529) 4.0 g/dL 3.5-5.0 ALK PHOS (test code = 6031418421) 70 U/L 34-122 ALTv (test code = 1742-6) 19 U/L 5-35 AST(SGOT) (test code = 9604238191) 21 U/L 13-40 eGFR (test code = 9496602081) mL/min/1.73m2 DARWIN (test code = DARWIN) Association [...] imaging tests). Lab Interpretation (test code = 50373-9) [facility] 02:03:32* Test Item Value Reference Range Interpretation Comme nts LIPASE (test code = 1981600142) 173 U/L 0-220 Lab Interpretation (test cod e = 30469-4) Normal [facility] WITH [id number] 01:43:53* Test Item Value Reference Range Interpretation Comme nts WBC (test code = 6690-2) See_Comment [Automated mention] The system which generated this result transmitted reference range: 4.30 - 11.10 10*3/?L. The reference range was not used to interpret this result as normal/abnormal. RBC (test code = 789-8) See_Comment [Automated mention] The system which generated this result transmitted [...] 33.7 g/dL 31.6-35.1 RDW-SD (test code = 16629-7) 41.3 fL 39.0-49.9 RDW-CV (test code = 788-0) 14.3 % 12.0-15.5 PLT (test code = 777-3) See_Comment [Automated messa ge] The system which generated this result transmitted reference range: 166 - 358 10*3/?L. The reference range was not used to interpret this result as normal/abnormal. MPV (test code = 37590-6) 9.7 fL 9.5-12.9 NRBC/100 WBC (test code = 1158775737) See_Comment [Automated [employer]ent [employer] ssage] The system which generated this result transmitted reference range: 0.0 - 10.0 /100 WBCs. The reference range was not used to interpret this result as normal/abnormal. NRBC x10^3 (test code = 4014677100) <0.01 See_Comment [Automated messa ge] The system which generated this result transmitted reference range: 10*3/?L. The reference range was not used to interpret this result as normal/abnormal. GRAN MAT (NEUT) % (test code = 770-8) 62.6 % IMM GRAN % (test code = 5847811402) 0.50 % LYMPH % (test code = 736-9) 27.0 % MONO % (test code = 5905-5) 6.5 % EOS % (test code = 713-8) 2.9 % BASO % (test code = 706-2) 0.5 % GRAN MAT x10^3(ANC) (test code = 8869072825) 6.30 10*3/uL 1.88-7.09 IMM GRAN x10^3 (test code = 9385396023) 0.05 10*3/uL 0.00-0.06 LYMPH x10^3 (test code = 731-0) 2.71 10*3/uL 1.32-3.29 MONO x10^3 (test code = 742-7) 0.65 10*3/uL 0.33-0.92 EOS x10^3 (test code = 711-2) 0.29 10*3/uL 0.03-0.39 BASO x10^3 (test code = 704-7) 0.05 10*3/uL 0.01-0.07 Lab Interpretation (test code = 35995-0) [facility] [id number] 02:21:00* Test Item Value Reference Range Interpretation Comme nts POCT PREG (test code = 1605) Negative On board controls acceptable with C Line (test code = 3574) Present Lab Interpretation (test cod e = 25084-9) [facility]Complete Metabolic [id number] 02:05:50* Test Item Value Reference Range Interpretation Comme nts NA (test code = 1699261162) 137 mmol/L 135-145 K (test code = 6439406496) 3.9 mmol/L 3.5-5.0 CL (test code = 6386902497) 109 mmol/L 98-108 H CO2 TOTAL (test code = 1910744398) 19 mmol/L 23-31 L AGAP (test code = 8195438411) 2-16 BUN (test code = 4881917057) 10 mg/dL 7-23 GLUCOSE (test code = 6523415562) 101 mg/dL 70-110 CREATININE (test code = 6335228194) 0.80 mg/dL 0.50-1.04 TOTAL BILI (test code = 9004276050) 0.3 mg/dL 0.1-1.1 CALCIUM (test code = 6324963644) 8.8 mg/dL 8.6-10.6 T PROTEIN (test code = 8185983534) 6.6 g/dL 6.3-8.2 ALBUMIN (test code = 6241799578) 4.0 g/dL 3.5-5.0 ALK PHOS (test code = 7605221974) 71 U/L 34-122 ALTv (test code = 1742-6) 18 U/L 5-35 AST(SGOT) (test code = 8420866497) 20 U/L 13-40 eGFR (test code = 6212508630) mL/min/1.73m2 DARWIN (test code = DARWIN) Association [...] imaging tests). Lab Interpretation (test code = 73339-9) [facility] [place] [id number] 02:05:25* Test Item Value Reference Range Interpretation Comme nts LIPASE (test code = 8523562746) 96 U/L 0-220 Lab Interpretation (test cod e = 41534-8) [facility] [place] with [id number] 01:53:06* Test Item Value Reference Range Interpretation Comme nts WBC (test code = 6690-2) See_Comment H [Automated [employer]] The system which generated this result transmitted reference range: 4.30 - 11.10 10*3/?L. The reference range was not used to interpret this result as normal/abnormal. RBC (test code = 789-8) See_Comment H [Automated [employer]] The system which generated this result transmitted [...] 34.3 g/dL 31.6-35.1 RDW-SD (test code = 95483-3) 40.5 fL 39.0-49.9 RDW-CV (test code = 788-0) 14.4 % 12.0-15.5 PLT (test code = 777-3) See_Comment [Automated messa ge] The system which generated this result transmitted reference range: 166 - 358 10*3/?L. The reference range was not used to interpret this result as normal/abnormal. MPV (test code = 47533-2) 9.4 fL 9.5-12.9 L NRBC/100 WBC (test code = 9363979333) See_Comment [Automated Silent Communication ssage] The system which generated this result transmitted reference range: 0.0 - 10.0 /100 WBCs. The reference range was not used to interpret this result as normal/abnormal. NRBC x10^3 (test code = 1656311815) <0.01 See_Comment [Automated Aerovance[employer] ge] The system which generated this result transmitted reference range: 10*3/?L. The reference range was not used to interpret this result as normal/abnormal. GRAN MAT (NEUT) % (test code = 770-8) 59.8 % IMM GRAN % (test code = 4868074725) 0.40 % LYMPH % (test code = 736-9) 31.0 % MONO % (test code = 5905-5) 6.3 % EOS % (test code = 713-8) 2.0 % BASO % (test code = 706-2) 0.5 % GRAN MAT x10^3(ANC) (test code = 3676241030) 6.73 10*3/uL 1.88-7.09 IMM GRAN x10^3 (test code = 5346771347) 0.05 10*3/uL 0.00-0.06 LYMPH x10^3 (test code = 731-0) 3.50 10*3/uL 1.32-3.29 H MONO x10^3 (test code = 742-7) 0.71 10*3/uL 0.33-0.92 EOS x10^3 (test code = 711-2) 0.23 10*3/uL 0.03-0.39 BASO x10^3 (test code = 704-7) 0.06 10*3/uL 0.01-0.07 Lab Interpretation (test code = 88737-7) Abnormal [facility] [id number] 01:45:00* Test Item Value Reference Range Interpretation Comme nts POCT PREG (test code = 1605) negatibe On board controls acceptable with C Line (test code = 3574) present POCT PREG LOT # (test code = 3575) [id number] POCT PREG TEST DATE ( test code = 3576) 09/04/2022 Lab Interpretation (test cod e = 77278-9) Normal [facility] [id number] 06:35:00* Test Item Value Reference Range Interpretation Comme nts POCT PREG (test code = 1605) negative On board controls acceptable with C Line (test code = 3574) present POCT PREG LOT # (test code = 3575) [id number] POCT PREG TEST DATE ( test code = 3576) Lab Interpretation (test cod e = 60467-8) [id number] 09:09:55* Test Item Value Reference Range Interpretation Comments TROPONIN I (test code = 9253985928) 0.001 ng/mL See_Comment [Automated message] The system [...] of biotin. Lab Interpretation (test code = 42541-0) [id number] 07:23:51* Test Item Value Reference Range Interpretation Comments D-DIMER (test code = 8880745670) See_Comment [Automated message] The system which generated [...] a diagnosis. Lab Interpretation (test code = 13430-5) [facility]21[facility] 06:11:26* Test Item Value Reference Range Interpretation Comme nts LIPASE (test code = 1004666629) 155 U/L 0-220 Lab Interpretation (test cod e = 37227-3) [facility] [id number] 06:06:05* Test Item Value Reference Range Interpretation Comments TROPONIN I (test code = 5586424920) 0.002 ng/mL See_Comment [Automated message] The system [...] of biotin. Lab Interpretation (test code = 47406-1) [facility] [id number]-[id number] 06:03:04* Test Item Value Reference Range Interpretation Comme nts NT-proBNP (test code = 2603743614) 19 pg/mL See_Comment [Automated message] The system which generated this result transmitted reference range: <=125. The reference range was not used to interpret this result as normal/abnormal. DARWIN (test code = DARWIN) Biotin has been reported to cause a negative bias, interpret results relative to patient's use of biotin. Lab Interpretation (test code = 79346-8) [facility] METABOLIC PANEL (16631)2021-05-28 05:54:25* Test Item Value Reference Range Interpretation Comme nts NA (test code = 6118584267) 136 mmol/L 135-145 K (test code = 8208220455) 3.2 mmol/L 3.5-5.0 L CL (test code = 5254074235) 109 mmol/L 98-108 H CO2 TOTAL (test code = 2975399651) 16 mmol/L 23-31 L AGAP (test code = 2311689696) 2-16 BUN (test code = 0148995241) 11 mg/dL 7-23 GLUCOSE (test code = 2794610705) 144 mg/dL 70-110 H CREATININE (test code = 7796539756) 0.84 mg/dL 0.50-1.04 TOTAL BILI (test code = 1608408922) 0.2 mg/dL 0.1-1.1 CALCIUM (test code = 9411244995) 9.4 mg/dL 8.6-10.6 T PROTEIN (test code = 3502100112) 6.9 g/dL 6.3-8.2 ALBUMIN (test code = 9168933444) 3.9 g/dL 3.5-5.0 ALK PHOS (test code = 7893199434) 106 U/L 34-122 ALTv (test code = 1742-6) 20 U/L 5-35 AST(SGOT) (test code = 7987833410) 17 U/L 13-40 eGFR (test code = 1197995036) mL/min/1.73m2 DARWIN (test code = DARWIN) Association [...] imaging tests). Lab Interpretation (test code = 52227-2) Abnormal [facility] WITH [id number] 05:40:06* Test Item Value Reference Range Interpretation Comme nts WBC (test code = 6690-2) See_Comment [Automated mention] The system which generated this result transmitted [...] 33.3 g/dL 31.6-35.1 RDW-SD (test code = 69691-6) 39.7 fL 39.0-49.9 RDW-CV (test code = 788-0) 13.6 % 12.0-15.5 PLT (test code = 777-3) See_Comment [Automated Aerovance[employer] ge] The system which generated this result transmitted reference range: 166 - 358 10*3/?L. The reference range was not used to interpret this result as normal/abnormal. MPV (test code = 15707-8) 9.5 fL 9.5-12.9 NRBC/100 WBC (test code = 1922387981) See_Comment [Automated Silent Communication ssage] The system which generated this result transmitted reference range: 0.0 - 10.0 /100 WBCs. The reference range was not used to interpret this result as normal/abnormal. NRBC x10^3 (test code = 8113351366) <0.01 See_Comment [Automated messa ge] The system which generated this result transmitted reference range: 10*3/?L. The reference range was not used to interpret this result as normal/abnormal. GRAN MAT (NEUT) % (test code = 770-8) 53.7 % IMM GRAN % (test code = 4683393469) 0.50 % LYMPH % (test code = 736-9) 36.0 % MONO % (test code = 5905-5) 6.3 % EOS % (test code = 713-8) 2.8 % BASO % (test code = 706-2) 0.7 % GRAN MAT x10^3(ANC) (test code = 3028463763) 5.38 10*3/uL 1.88-7.09 IMM GRAN x10^3 (test code = 6691976339) 0.05 10*3/uL 0.00-0.06 LYMPH x10^3 (test code = 731-0) 3.60 10*3/uL 1.32-3.29 H MONO x10^3 (test code = 742-7) 0.63 10*3/uL 0.33-0.92 EOS x10^3 (test code = 711-2) 0.28 10*3/uL 0.03-0.39 BASO x10^3 (test code = 704-7) 0.07 10*3/uL 0.01-0.07 Lab Interpretation (test code = 06018-6) [facility]PO[facility] [id number] 05:32:00* Test Item Value Reference Range Interpretation Comme nts POCT PREG (test code = 1605) negative On board controls acceptable with C Line (test code = 3574) present POCT PREG LOT # (test code = 3575) [id number] POCT PREG TEST DATE ( test code = 3576) 08/07/2022 Lab Interpretation (test cod e = 64843-1) [facility] LancasterTroponin [id number] 11:13:57* Test Item Value Reference Range Interpretation Comments TROPONIN I (test code = 2067549625) 0.002 ng/mL See_Comment [Automated message] The system [...] of biotin. Lab Interpretation (test code = 01206-8) Normal [facility] Metabolic Panel (NA, K, CL, CO2, GLUCOSE, BUN, CREATININE, CA)2021-04-08 11:04:34* Test Item Value Reference Range Interpretation Comme nts NA (test code = 5810738244) 140 mmol/L 135-145 K (test code = 5548016148) 3.6 mmol/L 3.5-5.0 CL (test code = 7001920677) 111 mmol/L 98-108 H CO2 TOTAL (test code = 0557570379) 22 mmol/L 23-31 L AGAP (test code = 9726775570) 2-16 BUN (test code = 3244670650) 10 mg/dL 7-23 GLUCOSE (test code = 1929252657) 104 mg/dL 70-110 CREATININE (test code = 8544785879) 0.70 mg/dL 0.50-1.04 CALCIUM (test code = 2172314315) 8.7 mg/dL 8.6-10.6 eGFR (test code = 8835917509) mL/min/1.73m2 DARWIN (test code = DARWIN) Association [...] imaging tests). Lab Interpretation (test code = 35904-5) Abnormal [facility] with Lsclhvrjvpvm9696-96-03 10:46:50* Test Item Value Reference Range Interpretation Comme nts WBC (test code = 6690-2) See_Comment [Automated mention] The system which generated this result transmitted reference range: 4.30 - 11.10 10*3/?L. The reference range was not used to interpret this result as normal/abnormal. RBC (test code = 789-8) See_Comment [Automated mention] The system which generated this result transmitted [...] 33.5 g/dL 31.6-35.1 RDW-SD (test code = 97121-1) 42.0 fL 39.0-49.9 RDW-CV (test code = 788-0) 14.1 % 12.0-15.5 PLT (test code = 777-3) See_Comment [Automated mention] The system which generated this result transmitted reference range: 166 - 358 10*3/?L. The reference range was not used to interpret this result as normal/abnormal. MPV (test code = 91247-9) 10.0 fL 9.5-12.9 NRBC/100 WBC (test code = 4267316788) See_Comment [Automated me ssage] The system which generated this result transmitted reference range: 0.0 - 10.0 /100 WBCs. The reference range was not used to interpret this result as normal/abnormal. NRBC x10^3 (test code = 9820108995) <0.01 See_Comment [Automated me ssage] The system which generated this result transmitted reference range: 10*3/?L. The reference range was not used to interpret this result as normal/abnormal. GRAN MAT (NEUT) % (test code = 770-8) 59.1 % IMM GRAN % (test code = 7571469261) 0.70 % LYMPH % (test code = 736-9) 28.2 % MONO % (test code = 5905-5) 8.5 % EOS % (test code = 713-8) 3.0 % BASO % (test code = 706-2) 0.5 % GRAN MAT x10^3(ANC) (test code = 6898297090) 3.61 10*3/uL 1.88-7.09 IMM GRAN x10^3 (test code = 2182109103) 0.04 10*3/uL 0.00-0.06 LYMPH x10^3 (test code = 731-0) 1.72 10*3/uL 1.32-3.29 MONO x10^3 (test code = 742-7) 0.52 10*3/uL 0.33-0.92 EOS x10^3 (test code = 711-2) 0.18 10*3/uL 0.03-0.39 BASO x10^3 (test code = 704-7) 0.03 10*3/uL 0.01-0.07 [facility] [id number] 05:54:48* Test Item Value Reference Range Interpretation Comments TROPONIN I (test code = 1316061180) 0.002 ng/mL See_Comment [Automated message] The system [...] of biotin. Lab Interpretation (test code = 33453-0) [facility] LancasterThyroid Stimulating Hormone (TSH)2021-04-08 00:51:16* Test Item Value Reference Range Interpretation Comme nts TSH (test code = 2026413928) See_Comment [Automated mention] The system which generated this result transmitted reference range: 0.45 - 4.70 mIU/L. The reference range was not used to interpret this result as normal/abnormal. Lab Interpretation (test code = 87026-5) Normal [facility] LancasterGlycosylated Hemoglobin (A1C)2021-04-08 00:26:53* Test Item Value Reference Range Interpretation Comme nts HGB A1C (test code = 4548-4) 5.5 % 4.0-5.7 DARWIN (test code = DARWIN) Reference RangesNormal: <5.7%Prediabetes: 5.7 - 6.4%Diabetes: > 6.5% Lab Interpretation (test code = 08800-7) Normal [facility] LancasterLipid Panel (Total Cholesterol, Triglycerides, HDL)2021-04-08 00:20:12* Test Item Value Reference Range Interpretation Comme nts CHOL (test code = 6455961071) 223 mg/dL 120-200 H HDL (test code = 1132421893) 35 mg/dL >50 L HDLC RATIO (test code = 8356897818) See_Comment H [Automated mention] The system which generated this result transmitted reference range: <=4.5. The reference range was not used to interpret this result as normal/abnormal. TRIG (test code = 4867157311) 223 mg/dL 30-170 H LDL CHOL (test code = 14346-8) 143 mg/dL See_Comment [Automated mention] The system which generated this result transmitted reference range: <=160. The reference range was not used to interpret this result as normal/abnormal. VLDL (test code = 4087238893) 45 mg/dL 5-60 Lab Interpretation (test code = 73575-4) Abnormal [facility] LancasterMagnesium Lcsyi7297-60-03 00:20:07* Test Item Value Reference Range Interpretation Comme nts MAGNESIUM (test code = 0041261695) 1.7 mg/dL 1.7-2.4 Lab Interpretation (test cod e = 82985-3) Normal [facility] LancasterCOMP. METABOLIC PANEL (21898)2021-04-07 23:04:13* Test Item Value Reference Range Interpretation Comme nts NA (test code = 2567124276) 139 mmol/L 135-145 K (test code = 7267361988) 3.4 mmol/L 3.5-5.0 L CL (test code = 1530159512) 109 mmol/L 98-108 H CO2 TOTAL (test code = 0125989586) 22 mmol/L 23-31 L AGAP (test code = 1846276758) 2-16 BUN (test code = 0524341042) 10 mg/dL 7-23 GLUCOSE (test code = 2887372096) 97 mg/dL 70-110 CREATININE (test code = 0007434470) 0.84 mg/dL 0.50-1.04 TOTAL BILI (test code = 3124281321) 0.3 mg/dL 0.1-1.1 CALCIUM (test code = 9864626819) 9.2 mg/dL 8.6-10.6 T PROTEIN (test code = 2697690947) 6.6 g/dL 6.3-8.2 ALBUMIN (test code = 0556363808) 3.8 g/dL 3.5-5.0 ALK PHOS (test code = 8830858910) 69 U/L 34-122 ALTv (test code = 1742-6) 18 U/L 5-35 AST(SGOT) (test code = 4694100793) 19 U/L 13-40 eGFR (test code = 9327108642) mL/min/1.73m2 DARWIN (test code = DARWIN) Association [...] imaging tests). Lab Interpretation (test code = 14021-3) Abnormal [facility]TRMCLE[facility]INGTONNIN [id number] 22:33:04* Test Item Value Reference Range Interpretation Comments TROPONIN I (test code = 0154055511) 0.001 ng/mL See_Comment [Automated message] The system [...] of biotin. Lab Interpretation (test code = 34920-2) Normal [facility] LancasterN-TERMINAL DOC-PFB4419-88-01 22:30:05* Test Item Value Reference Range Interpretation Comme nts NT-proBNP (test code = 4259631719) 352 pg/mL See_Comment H [Automated message] The system which generated this result transmitted reference range: <=125. The reference range was not used to interpret this result as normal/abnormal. DARWIN (test code = DARWIN) Biotin has been reported to cause a negative bias, interpret results relative to patient's use of biotin. Lab Interpretation (test code = 57198-9) Abnormal [facility] LancasterACTIVATED PARTIAL THRMPLAS [id number] 22:28:48* Test Item Value Reference Range Interpretation Comme nts APTT Patient (test code = 3173-2) See_Comment [Automated message] The system which generated this result transmitted reference range: 23 - 38 Seconds. The reference range was not used to interpret this result as normal/abnormal. DARWIN (test code = DARWIN) The [facility] patient population mean normal value for aPTT is 30 seconds. Lab Interpretation (test code = 01458-7) Normal [facility] LancasterPROTHROMBIN TIME / [id number] 22:26:44* Test Item Value Reference Range Interpretation [...] the indications. Lab Interpretation (test code = 02287-4) Normal [facility] LancasterLIPASE2021-10-01 22:20:05* Test Item Value Reference Range Interpretation Comme nts LIPASE (test code = 7041603976) 66 U/L 0-220 Lab Interpretation (test cod e = 23276-2) Normal [facility] LancasterCBC WITH [id number] 22:07:01* Test Item Value Reference Range Interpretation [...] 33.2 g/dL 31.6-35.1 RDW-SD (test code = 13274-3) 41.6 fL 39.0-49.9 RDW-CV (test code = 788-0) 14.1 % 12.0-15.5 PLT (test code = 777-3) See_Comment [Automated Aerovance[employer] ge] The system which generated this result transmitted reference range: 166 - 358 10*3/?L. The reference range was not used to interpret this result as normal/abnormal. MPV (test code = 13124-9) 9.2 fL 9.5-12.9 L NRBC/100 WBC (test code = 6734061083) See_Comment [Automated Silent Communication ssage] The system which generated this result transmitted reference range: 0.0 - 10.0 /100 WBCs. The reference range was not used to interpret this result as normal/abnormal. NRBC x10^3 (test code = 1208656769) <0.01 See_Comment [Automated messa ge] The system which generated this result transmitted reference range: 10*3/?L. The reference range was not used to interpret this result as normal/abnormal. GRAN MAT (NEUT) % (test code = 770-8) 61.6 % IMM GRAN % (test code = 1028973525) 0.60 % LYMPH % (test code = 736-9) 28.7 % MONO % (test code = 5905-5) 4.9 % EOS % (test code = 713-8) 3.7 % BASO % (test code = 706-2) 0.5 % GRAN MAT x10^3(ANC) (test code = 6423855361) 6.24 10*3/uL 1.88-7.09 IMM GRAN x10^3 (test code = 3846662631) 0.06 10*3/uL 0.00-0.06 LYMPH x10^3 (test code = 731-0) 2.90 10*3/uL 1.32-3.29 MONO x10^3 (test code = 742-7) 0.50 10*3/uL 0.33-0.92 EOS x10^3 (test code = 711-2) 0.37 10*3/uL 0.03-0.39 BASO x10^3 (test code = 704-7) 0.05 10*3/uL 0.01-0.07 Lab Interpretation (test code = 68053-0) [facility]normal [facility] LancasterURINALYSIS2021-07-08 08:49:55* Test Item Value Reference Range Interpretation Comme nts APPEARANCE (test code = 7021791397) Cloudy Clear A COLOR (test code = 7801810726) Yellow Yellow PH (test code = 2608291068) 4.8-8.0 SP GRAVITY (test code = 0233957183) 1.003-1.030 GLU U QUAL (test code = 6862441015) Normal Normal BLOOD (test code = 9583196018) Negative Negative KETONES (test code = 5455620530) Negative Negative PROTEIN (test code = 2887-8) Negative Negative UROBILIN (test code = 9592051134) Normal Normal BILIRUBIN (test code = 5587828567) 2 mg/dL Negative A NITRITE (test code = 2072046991) Negative Negative LEUK MARC (test code = 5833426455) 75/uL Negative A RBC/HPF (test code = 2239809776) See_Comment H [Automated Aerovancea ge] The system which generated this result transmitted reference range: 0 - 3 HPF. The reference range was not used to interpret this result as normal/abnormal. WBC/HPF (test code = 7958447833) See_Comment H [Automated messa ge] The system which generated this result transmitted reference range: 0 - 5 HPF. The reference range was not used to interpret this result as normal/abnormal. BACTERIA (test code = 3836566229) Moderate Negative A MUCOUS (test code = 2731948340) Slight Negative LPF A SQ EPITH (test code = 2286494413) HPF YEAST BUD (test code = 2472892334) See_Comment H [Automated messa ge] The system which generated this result transmitted reference range: <=1 HPF. The reference range was not used to interpret this result as normal/abnormal. Ictotest (test code = 2661026053) Negative Lab Interpretation (test code = 10668-8) Abnormal [facility]. METABOLIC PANEL (50499)2021-01-12 08:49:44* Test Item Value Reference Range Interpretation Comme nts NA (test code = 8519465871) 137 mmol/L 135-145 K (test code = 8365748138) 4.6 mmol/L 3.5-5.0 CL (test code = 0213412503) 108 mmol/L 98-108 CO2 TOTAL (test code = 6867162058) 21 mmol/L 23-31 L AGAP (test code = 2983326836) 2-16 BUN (test code = 6471524183) 19 mg/dL 7-23 GLUCOSE (test code = 2301568820) 107 mg/dL 70-110 CREATININE (test code = 8098490344) 0.63 mg/dL 0.50-1.04 TOTAL BILI (test code = 2057006760) 0.4 mg/dL 0.1-1.1 CALCIUM (test code = 0075300015) 9.2 mg/dL 8.6-10.6 T PROTEIN (test code = 4147781889) 7.4 g/dL 6.3-8.2 ALBUMIN (test code = 6751236172) 4.2 g/dL 3.5-5.0 ALK PHOS (test code = 3653803287) 179 U/L 34-122 H ALTv (test code = 1742-6) 113 U/L 5-35 H AST(SGOT) (test code = 6495596883) 38 U/L 13-40 eGFR (test code = 1539311320) mL/min/1.73m2 DARWIN (test code = DARWIN) Association [...] imaging tests). Lab Interpretation (test code = 06570-3) Abnormal [facility] WITH [id number] 08:11:02* Test Item Value Reference Range Interpretation Comme nts WBC (test code = 6690-2) See_Comment H [Automated mention] The system which generated this result transmitted reference range: 4.30 - 11.10 10*3/?L. The reference range was not used to interpret this result as normal/abnormal. RBC (test code = 789-8) See_Comment [Automated [employer] Rifiniti] The system which generated this result transmitted [...] 33.3 g/dL 31.6-35.1 RDW-SD (test code = 67222-4) 41.6 fL 39.0-49.9 RDW-CV (test code = 788-0) 14.0 % 12.0-15.5 PLT (test code = 777-3) See_Comment [Automated Aerovancea ge] The system which generated this result transmitted reference range: 166 - 358 10*3/?L. The reference range was not used to interpret this result as normal/abnormal. MPV (test code = 65429-8) 9.5 fL 9.5-12.9 NRBC/100 WBC (test code = 5624162276) See_Comment [Automated Silent Communication ssage] The system which generated this result transmitted reference range: 0.0 - 10.0 /100 WBCs. The reference range was not used to interpret this result as normal/abnormal. NRBC x10^3 (test code = 5972224058) <0.01 See_Comment [Automated Aerovancea ge] The system which generated this result transmitted reference range: 10*3/?L. The reference range was not used to interpret this result as normal/abnormal. GRAN MAT (NEUT) % (test code = 770-8) 68.0 % IMM GRAN % (test code = 1491806498) 0.80 % LYMPH % (test code = 736-9) 23.6 % MONO % (test code = 5905-5) 5.1 % EOS % (test code = 713-8) 2.1 % BASO % (test code = 706-2) 0.4 % GRAN MAT x10^3(ANC) (test code = 2285382130) 8.86 10*3/uL 1.88-7.09 H IMM GRAN x10^3 (test code = 0770132400) 0.11 10*3/uL 0.00-0.06 H LYMPH x10^3 (test code = 731-0) 3.07 10*3/uL 1.32-3.29 MONO x10^3 (test code = 742-7) 0.66 10*3/uL 0.33-0.92 EOS x10^3 (test code = 711-2) 0.27 10*3/uL 0.03-0.39 BASO x10^3 (test code = 704-7) 0.05 10*3/uL 0.01-0.07 Lab Interpretation (test code = 50724-0) [facility] LancasterPOCT [id number] 08:02:00* Test Item Value Reference Range Interpretation Comme nts POCT PREG (test code = 1605) negative On board controls acceptable with C Line (test code = 3574) positive POCT PREG LOT # (test code = 3575) [id number] POCT PREG TEST DATE ( test code = 3576) 07/07/2022 Lab Interpretation (test cod e = 81154-3) Normal [facility] LancasterTROPONIN [id number] 01:55:05* Test Item Value Reference Range Interpretation Comme nts TROPONIN I (test code = 3411389254) 0.000 ng/mL See_Comment [Automated message] The system [...] biotin. ? Lab Interpretation (test code = 74522-9) Normal [facility] 1 Hlix3661-47-22 23:41:46No radiographic evidence of an acute cardiopulmonary process. RL: 2109AFC: 11371 EXAM: XR CHEST 1 VW ORDERING PROVIDER: [...] evidence of an acute cardiopulmonary process.RL: 2109AFC: [address] [facility] T[facility] [id number] 23:07:21* Test Item Value Reference Range Interpretation Comme nts TROPONIN I (test code = 2837077600) 0.000 ng/mL See_Comment [Automated message] The system [...] biotin. ? Lab Interpretation (test code = 23382-6) Normal [facility] LancasterN-TERMINAL [id number]-KFN8356-27-05 23:04:20* Test Item Value Reference Range Interpretation Comme nts NT-proBNP (test code = 2458660090) 14 pg/mL See_Comment [Automated message] The system which generated this result transmitted reference range: <=125. The reference range was not used to interpret this result as normal/abnormal. DARWIN (test code = DARWIN) Biotin has been reported to cause a negative bias, interpret results relative to patient's use of biotin. Lab Interpretation (test code = 39359-4) Normal [facility] LancasterHepatic Function Panel (ALB, T.PRO, BILI T, BU/BC, ALT, AST, ALK PHOS)2020-12-10 22:58:16* Test Item Value Reference Range Interpretation Comme nts TOTAL BILI (test code = 9242856628) 0.5 mg/dL 0.1-1.1 BILI UNCON (test code = 3265640913) 0.3 mg/dL 0.1-1.1 BILI CONJ (test code = 4605007279) 0.0 mg/dL 0.0-0.3 T PROTEIN (test code = 0160920571) 8.1 g/dL 6.3-8.2 ALBUMIN (test code = 6521102117) 4.7 g/dL 3.5-5.0 ALK PHOS (test code = 2111621974) 104 U/L 34-122 ALTv (test code = 1742-6) 18 U/L 5-35 AST(SGOT) (test code = 5084845201) 23 U/L 13-40 Lab Interpretation (test cod e = 78833-5) Normal [facility] Metabolic Panel (NA, K, CL, CO2, GLUCOSE, BUN, CREATININE, CA)2020-12-10 22:57:56* Test Item Value Reference Range Interpretation Comme nts NA (test code = 1312723621) 135 mmol/L 135-145 K (test code = 2649513447) 3.7 mmol/L 3.5-5.0 CL (test code = 5619121139) 105 mmol/L 98-108 CO2 TOTAL (test code = 4646104876) 18 mmol/L 23-31 L AGAP (test code = 9566471317) 2-16 BUN (test code = 6166684777) 14 mg/dL 7-23 GLUCOSE (test code = 9638919617) 108 mg/dL 70-110 CREATININE (test code = 1728741509) 0.56 mg/dL 0.50-1.04 CALCIUM (test code = 4399724482) 9.8 mg/dL 8.6-10.6 eGFR (test code = 3140264366) mL/min/1.73m2 DARWIN (test code = DARWIN) Association [...] imaging tests). Lab Interpretation (test code = 34289-2) [facility]normal [facility] LancasterLipase Rawfe1849-12-86 22:57:56* Test Item Value Reference Range Interpretation Comme nts LIPASE (test code = 0728033717) 122 U/L 0-220 Lab Interpretation (test cod e = 56728-2) [facility] LancasterD-KIYHY8926-65-15 22:52:34* Test Item Value Reference Range Interpretation Comments D-DIMER (test code = 2191105336) See_Comment [Automated message] The system which generated [...] a diagnosis. Lab Interpretation (test code = 92739-3) [facility] Lancaster[facility]inalysis[facility]21[facility] 22:52:29* Test Item Value Reference Range Interpretation Comme nts APPEARANCE (test code = 3949092197) Hazy Clear A COLOR (test code = 6202587460) Yellow Yellow PH (test code = 9530633773) 4.8-8.0 SP GRAVITY (test code = 1899700706) 1.003-1.030 GLU U QUAL (test code = 7874313189) Normal Normal BLOOD (test code = 4217058543) Negative Negative KETONES (test code = 1202059299) Negative Negative PROTEIN (test code = 2887-8) Negative Negative UROBILIN (test code = 6879631387) Normal Normal BILIRUBIN (test code = 4437873917) 2 mg/dL Negative A NITRITE (test code = 8098931030) Negative Negative LEUK MARC (test code = 2668661527) 25/uL Negative A RBC/HPF (test code = 9618921729) See_Comment [Automated Aerovance[employer] ge] The system which generated this result transmitted reference range: 0 - 3 HPF. The reference range was not used to interpret this result as normal/abnormal. WBC/HPF (test code = 5891602919) See_Comment [Automated Aerovance[employer] ge] The system which generated this result transmitted reference range: 0 - 5 HPF. The reference range was not used to interpret this result as normal/abnormal. BACTERIA (test code = 3589154889) Few Negative A MUCOUS (test code = 8461926605) Slight Negative LPF A SQ EPITH (test code = 3486366157) HPF Lab Interpretation (test code = 97269-0) Abnormal [facility] with Lgiokoadvrlh3187-72-81 22:45:56* Test Item Value Reference Range Interpretation [...] 33.5 g/dL 31.6-35.1 RDW-SD (test code = 97518-3) 40.5 fL 39.0-49.9 RDW-CV (test code = 788-0) 13.3 % 12.0-15.5 PLT (test code = 777-3) See_Comment H [Automated message] The system which generated this result transmitted reference range: 166 - 358 10*3/?L. The reference range was not used to interpret this result as normal/abnormal. MPV (test code = 43241-0) 9.2 fL 9.5-12.9 L NRBC/100 WBC (test code = 8262783738) See_Comment [Automated message] The system which generated this result transmitted reference range: 0.0 - 10.0 /100 WBCs. The reference range was not used to interpret this result as normal/abnormal. NRBC x10^3 (test code = 6725049546) <0.01 See_Comment [Automated message] The system which generated this result transmitted reference range: 10*3/?L. The reference range was not used to interpret this result as normal/abnormal. GRAN MAT (NEUT) % (test code = 770-8) 73.4 % IMM GRAN % (test code = 0426015777) 0.50 % LYMPH % (test code = 736-9) 17.5 % MONO % (test code = 5905-5) 6.5 % EOS % (test code = 713-8) 1.6 % BASO % (test code = 706-2) 0.5 % GRAN MAT x10^3(ANC) (test code = 2381966512) 10.21 10*3/uL 1.88-7.09 H IMM GRAN x10^3 (test code = 9229269959) 0.07 10*3/uL 0.00-0.06 H LYMPH x10^3 (test code = 731-0) 2.44 10*3/uL 1.32-3.29 MONO x10^3 (test code = 742-7) 0.90 10*3/uL 0.33-0.92 EOS x10^3 (test code = 711-2) 0.22 10*3/uL 0.03-0.39 BASO x10^3 (test code = 704-7) 0.07 10*3/uL 0.01-0.07 Lab Interpretation (test code = 69495-2) [facility] [id number] 22:32:00* Test Item Value Reference Range Interpretation Comme nts POCT PREG (test code = 1605) negative On board controls acceptable with C Line (test code = 3574) present POCT PREG LOT # (test code = 3575) [id number] POCT PREG TEST DATE ( test code = 3576) 06/06/2022 Lab Interpretation (test cod e = 59760-7) [facility] LancasterUrinalysis2021-[facility]-30 21:34:43* Test Item Value Reference Range Interpretation Comme nts APPEARANCE (test code = 6487552169) Clear Clear COLOR (test code = 9440218741) Yellow Yellow PH (test code = 8515634381) 4.8-8.0 SP GRAVITY (test code = 9687608897) 1.003-1.030 GLU U QUAL (test code = 6301887685) Normal Normal BLOOD (test code = 3850561910) Negative Negative KETONES (test code = 8746121090) Negative Negative PROTEIN (test code = 2887-8) Negative Negative UROBILIN (test code = 3297451905) Normal Normal BILIRUBIN (test code = 0322274988) Negative Negative NITRITE (test code = 7822457285) Negative Negative LEUK MARC (test code = 8467280873) Negative Negative RBC/HPF (test code = 3118429116) See_Comment [Automated Aerovancea ge] The system which generated this result transmitted reference range: 0 - 3 HPF. The reference range was not used to interpret this result as normal/abnormal. WBC/HPF (test code = 6176577131) <1 See_Comment [Automated Aerovance[employer] ge] The system which generated this result transmitted reference range: 0 - 5 HPF. The reference range was not used to interpret this result as normal/abnormal. BACTERIA (test code = 8789768908) Negative Negative MUCOUS (test code = 7665485199) Slight Negative LPF A SQ EPITH (test code = 6472146891) HPF Lab Interpretation (test code = 82589-2) [facility] LancasterPO[facility] Cvxt4363-38-79 21:18:00* Test Item Value Reference Range Interpretation Comme nts POCT PREG (test code = 1605) negative On board controls acceptable with C Line (test code = 3574) present POCT PREG LOT # (test code = 3575) [id number] POCT PREG TEST DATE ( test code = 3576) 06/06/2022 Lab Interpretation (test cod e = 61277-9) [facility] LancasterXR ANKLE 3+ VW [id number] 21:11:00No acute bony abnormality. Preliminary Report Dictated [...] reviewed this study and agree with the abovereport.[facility] LancasterTroponin R0171-15-01 20:59:44* Test Item Value Reference Range Interpretation Comme nts TROPONIN I (test code = 2574052188) 0.000 ng/mL See_Comment [Automated message] The system [...] biotin. ? Lab Interpretation (test code = 24627-9) [facility] LancasterLipase Uogrl5983-11-69 20:48:20* Test Item Value Reference Range Interpretation Comme nts LIPASE (test code = 6904713102) 96 U/L 0-220 Lab Interpretation (test cod e = 96811-2) [facility] LancasterBasi Metabolic [facility] (NA, K, CL, CO2, GLUCOSE, BUN, CREATININE, CA)2020-12-04 20:48:20* Test Item Value Reference Range Interpretation Comme nts NA (test code = 3163925772) 138 mmol/L 135-145 K (test code = 0895089194) 3.8 mmol/L 3.5-5.0 CL (test code = 9257479696) 108 mmol/L 98-108 CO2 TOTAL (test code = 7393211656) 21 mmol/L 23-31 L AGAP (test code = 6773633299) 2-16 BUN (test code = 1619119762) 13 mg/dL 7-23 GLUCOSE (test code = 5730761914) 107 mg/dL 70-110 CREATININE (test code = 7713953025) 0.66 mg/dL 0.50-1.04 CALCIUM (test code = 1419655342) 9.3 mg/dL 8.6-10.6 eGFR (test code = 7376763691) mL/min/1.73m2 DARWIN (test code = DARWIN) Association [...] imaging tests). Lab Interpretation (test code = 40216-0) [facility] LancasterHepatic Function Panel (ALB, T.PRO, BILI T, BU/BC, ALT, AST, ALK PHOS)2020-12-04 20:48:20* Test Item Value Reference Range Interpretation Comme nts TOTAL BILI (test code = 0851029757) 0.3 mg/dL 0.1-1.1 BILI UNCON (test code = 2146284514) 0.1 mg/dL 0.1-1.1 BILI CONJ (test code = 5724082478) 0.0 mg/dL 0.0-0.3 T PROTEIN (test code = 3680046939) 7.0 g/dL 6.3-8.2 ALBUMIN (test code = 1979687541) 4.0 g/dL 3.5-5.0 ALK PHOS (test code = 0106923979) 114 U/L 34-122 ALTv (test code = 1742-6) 30 U/L 5-35 AST(SGOT) (test code = 6607371658) 23 U/L 13-40 Lab Interpretation (test cod e = 78843-9) Normal [facility] with Gtbyzvechefp3604-06-58 20:35:01* Test Item Value Reference Range Interpretation [...] 34.0 g/dL 31.6-35.1 RDW-SD (test code = 89391-2) 39.8 fL 39.0-49.9 RDW-CV (test code = 788-0) 12.9 % 12.0-15.5 PLT (test code = 777-3) See_Comment [Automated messa ge] The system which generated this result transmitted reference range: 166 - 358 10*3/?L. The reference range was not used to interpret this result as normal/abnormal. MPV (test code = 68998-5) 9.3 fL 9.5-12.9 L NRBC/100 WBC (test code = 2346972404) See_Comment [Automated Silent Communication ssage] The system which generated this result transmitted reference range: 0.0 - 10.0 /100 WBCs. The reference range was not used to interpret this result as normal/abnormal. NRBC x10^3 (test code = 7097077358) <0.01 See_Comment [Automated messa ge] The system which generated this result transmitted reference range: 10*3/?L. The reference range was not used to interpret this result as normal/abnormal. GRAN MAT (NEUT) % (test code = 770-8) 71.5 % IMM GRAN % (test code = 7167708639) 0.30 % LYMPH % (test code = 736-9) 19.8 % MONO % (test code = 5905-5) 6.2 % EOS % (test code = 713-8) 1.8 % BASO % (test code = 706-2) 0.4 % GRAN MAT x10^3(ANC) (test code = 2879885522) 6.79 10*3/uL 1.88-7.09 IMM GRAN x10^3 (test code = 2676473110) 0.03 10*3/uL 0.00-0.06 LYMPH x10^3 (test code = 731-0) 1.88 10*3/uL 1.32-3.29 MONO x10^3 (test code = 742-7) 0.59 10*3/uL 0.33-0.92 EOS x10^3 (test code = 711-2) 0.17 10*3/uL 0.03-0.39 BASO x10^3 (test code = 704-7) 0.04 10*3/uL 0.01-0.07 Lab Interpretation (test code = 80522-5) [facility] LancasterDRUG SCREEN ER (URINE)2020-11-04 02:54:38* Test Item Value Reference Range Interpretation Comme nts AMPHET (test code = 1849846608) Negative Negative Cocaine Metabolite (test code = 7766127046) Negative Negative OPIATES (test code = 5888240575) Presumptive Positive Negative A THC (test code = 0635853787) Negative Negative DARWIN (test code = DARWIN) Urine Drug Cutoff Ranges Amphetamine: ? 1,000 ng/mLCocaine: ? 150 ng/mLOpiates: ? 300 ng/mLCannabinoids: ?50 ng/mL The results are to be used only for medical (i.e., treatment) purposes. Unconfirmed screening results must not be used for non-medical purposes (e.g., employment testing, legal testing). Lab Interpretation (test code = 21706-4) [facility]normal [facility] LancasterTROPONIN [id number] 02:51:11* Test Item Value Reference Range Interpretation Comme nts TROPONIN I (test code = 0238849506) 0.001 ng/mL See_Comment [Automated message] The system [...] biotin. ? Lab Interpretation (test code = 86310-3) Normal [facility] LancasteraPTT2021-04-30 02:41:10* Test Item Value Reference Range Interpretation Comme nts APTT Patient (test code = 3173-2) See_Comment [Automated message] The system which generated this result transmitted reference range: 23 - 38 Seconds. The reference range was not used to interpret this result as normal/abnormal. DARWIN (test code = DARWIN) The [facility] patient population mean normal value for aPTT is 30 seconds. Lab Interpretation (test code = 33101-2) [facility] LancasterURINALYSIS2021-04-30 02:40:40* Test Item Value Reference Range Interpretation Comme nts APPEARANCE (test code = 9728584884) Clear Clear COLOR (test code = 0556679677) Yellow Yellow PH (test code = 6194643802) 4.8-8.0 SP GRAVITY (test code = 3668290377) 1.003-1.030 GLU U QUAL (test code = 1603707022) Normal Normal BLOOD (test code = 7954538085) Negative Negative KETONES (test code = 9526753347) Negative Negative PROTEIN (test code = 2887-8) Negative Negative UROBILIN (test code = 3655713654) Normal Normal BILIRUBIN (test code = 5765652361) Negative Negative NITRITE (test code = 3683842517) Negative Negative LEUK MARC (test code = 2756075025) Negative Negative RBC/HPF (test code = 1871742370) <1 See_Comment [Automated messa ge] The system which generated this result transmitted reference range: 0 - 3 HPF. The reference range was not used to interpret this result as normal/abnormal. WBC/HPF (test code = 6915814983) <1 See_Comment [Automated messa ge] The system which generated this result transmitted reference range: 0 - 5 HPF. The reference range was not used to interpret this result as normal/abnormal. BACTERIA (test code = 3643761542) Negative Negative MUCOUS (test code = 5243676468) Slight Negative LPF A SQ EPITH (test code = 3235620612) HPF Lab Interpretation (test code = 75938-6) [facility]normal [facility] LancasterCOMP. METABOLIC PANEL (40615)2020-11-04 02:40:09* Test Item Value Reference Range Interpretation Comme nts NA (test code = 4421457410) 141 mmol/L 135-145 K (test code = 9313344386) 4.1 mmol/L 3.5-5.0 CL (test code = 1950915879) 110 mmol/L 98-108 H CO2 TOTAL (test code = 9611913090) 22 mmol/L 23-31 L AGAP (test code = 3414925631) 2-16 BUN (test code = 7604213790) 15 mg/dL 7-23 GLUCOSE (test code = 1296722165) 115 mg/dL 70-110 H CREATININE (test code = 8137247854) 0.69 mg/dL 0.50-1.04 TOTAL BILI (test code = 3451258128) 0.2 mg/dL 0.1-1.1 CALCIUM (test code = 8338452704) 9.2 mg/dL 8.6-10.6 T PROTEIN (test code = 1736202475) 6.8 g/dL 6.3-8.2 ALBUMIN (test code = 4364692823) 4.1 g/dL 3.5-5.0 ALK PHOS (test code = 6558017739) 69 U/L 34-122 ALTv (test code = 1742-6) 20 U/L 5-35 AST(SGOT) (test code = 7529120482) 23 U/L 13-40 eGFR (test code = 3713046369) mL/min/1.73m2 DARWIN (test code = DARWIN) Association [...] imaging tests). Lab Interpretation (test code = 25682-1) [facility]normal [facility] LancasterLIPASE, [id number] 02:39:49* Test Item Value Reference Range Interpretation Comme nts LIPASE (test code = 7686664869) 117 U/L 0-220 Lab Interpretation (test cod e = 76287-3) Normal [facility] LancasterPROTHROMBIN TIME / [id number] 02:39:08* Test Item Value Reference Range Interpretation Comme nts PROTIME PATIENT (test code = 5964-2) See_Comment [Automated Aerovancea Rifiniti] The system which generated this result transmitted reference range: 12.0 - 14.7 Seconds. The reference range was not used to interpret this result as normal/abnormal. INR (test code = 6301-6) Normal INR <1.1; Warfarin Therapeutic range 2.0 to 3.0 or 2.5 to 3.5, depending upon the indications. Lab Interpretation (test code = 47965-0) Normal [facility] LancasterCB WITH [id number] 02:30:11* Test Item Value Reference Range Interpretation Comme nts WBC (test code = 6690-2) See_Comment H [Automated Aerov[employer] Rifiniti] The system which generated this result transmitted reference range: 4.30 - 11.10 10*3/?L. The reference range was not used to interpret this result as normal/abnormal. RBC (test code = 789-8) See_Comment [Automated Aerov[employer] Rifiniti] The system which generated this result transmitted [...] 32.8 g/dL 31.6-35.1 RDW-SD (test code = 60670-4) 44.1 fL 39.0-49.9 RDW-CV (test code = 788-0) 13.8 % 12.0-15.5 PLT (test code = 777-3) See_Comment [Automated messa ge] The system which generated this result transmitted reference range: 166 - 358 10*3/?L. The reference range was not used to interpret this result as normal/abnormal. MPV (test code = 66962-5) 9.6 fL 9.5-12.9 NRBC/100 WBC (test code = 3946579020) See_Comment [Automated Silent Communication ssage] The system which generated this result transmitted reference range: 0.0 - 10.0 /100 WBCs. The reference range was not used to interpret this result as normal/abnormal. NRBC x10^3 (test code = 2900882557) <0.01 See_Comment [Automated messa ge] The system which generated this result transmitted reference range: 10*3/?L. The reference range was not used to interpret this result as normal/abnormal. GRAN MAT (NEUT) % (test code = 770-8) 65.9 % IMM GRAN % (test code = 0044484210) 0.70 % LYMPH % (test code = 736-9) 25.9 % MONO % (test code = 5905-5) 5.1 % EOS % (test code = 713-8) 2.0 % BASO % (test code = 706-2) 0.4 % GRAN MAT x10^3(ANC) (test code = 6182860100) 8.82 10*3/uL 1.88-7.09 H IMM GRAN x10^3 (test code = 2979608628) 0.09 10*3/uL 0.00-0.06 H LYMPH x10^3 (test code = 731-0) 3.46 10*3/uL 1.32-3.29 H MONO x10^3 (test code = 742-7) 0.68 10*3/uL 0.33-0.92 EOS x10^3 (test code = 711-2) 0.27 10*3/uL 0.03-0.39 BASO x10^3 (test code = 704-7) 0.05 10*3/uL 0.01-0.07 Lab Interpretation (test code = 09946-0) [facility]normal [facility] LancasterCOVID-[facility] (ID NOW RAPID TESTING)2020-09-17 16:56:05* Test Item Value Reference Range Interpretation Comme nts SARS-CoV-2 Rapid ID NOW (test code = 13678-4) Not Detected Not Detected DARWIN (test code = DARWIN) ID NOW COVID-19 As say is an isothermal nucleic acid amplification test intended for the qualitative detection of nucleic acid from SARS-CoV-2 viral RNA in nasopharyngeal ([employer]) specimens. It is used under Emergency Use [...] clinically indicated. Lab Interpretation (test code = 49458-7) [facility] [id number] 16:54:09* Test Item Value Reference Range Interpretation Comme nts Streptococcus pyogenes (grou p A) antigen (test code = 57084-2) Negative Negative Lab Interpretation (test cod e = 71472-9) Normal [facility] LancasterXR HAND 3+ VW [id number] 07:29:48 Impression: No acute fracture or dislocation. RL: 2824AFC: 01936 End of Report Exam: Left Hand, 09/07/2020 [...] swelling.IMPRESSIONImpression: No acute fracture or dislocation.RL: 2824AFC: 86342Joe of Report [facility] LancasterXR FOREARM 2 VW [id number] 07:28:55No acute abnormality of the left forearm. RL: 6200AFC: 18000 Patient name: CHARITY MONROYOB: 1980 40 years [...] acute abnormality of the left forearm.RL: 6200AFC: 72965 [facility] LancasterUrinalysis2021-02-21 09:06:00* Test Item Value Reference Range Interpretation Comme nts APPEARANCE (test code = 5735190606) Hazy Clear A COLOR (test code = 6502817925) Yellow Yellow PH (test code = 5616356806) 4.8-8.0 SP GRAVITY (test code = 4523439051) 1.003-1.030 GLU U QUAL (test code = 9152246695) Normal Normal BLOOD (test code = 1925793330) Negative Negative KETONES (test code = 6353723067) Negative Negative PROTEIN (test code = 2887-8) Negative Negative UROBILIN (test code = 0046562397) Normal Normal BILIRUBIN (test code = 1805435011) Negative Negative NITRITE (test code = 4255169913) Negative Negative LEUK MARC (test code = 2372436663) Negative Negative RBC/HPF (test code = 7198093435) See_Comment [Automated messa ge] The system which generated this result transmitted reference range: 0 - 3 HPF. The reference range was not used to interpret this result as normal/abnormal. WBC/HPF (test code = 7121531839) <1 See_Comment [Automated messa ge] The system which generated this result transmitted reference range: 0 - 5 HPF. The reference range was not used to interpret this result as normal/abnormal. BACTERIA (test code = 5885345856) Moderate Negative A SQ EPITH (test code = 0082392839) HPF Lab Interpretation (test code = 34256-7) Abnormal [facility] with Zwihhflmarpn4850-02-08 08:50:00* Test Item Value Reference Range Interpretation Comme nts WBC (test code = 6690-2) See_Comment H [Automated messa ge] The system which generated this result transmitted reference range: 4.30 - 11.10 10*3/?L. The reference range was not used to interpret this result as normal/abnormal. RBC (test code = 789-8) See_Comment [Automated Aerovancea ge] The system which generated this result [...] 34.0 g/dL 31.6-35.1 RDW-SD (test code = 26327-1) 42.6 fL 39-49.9 RDW-CV (test code = 788-0) 13.6 % 12-15.5 PLT (test code = 777-3) See_Comment H [Automated messa ge] The system which generated this result transmitted reference range: 166 - 358 10*3/?L. The reference range was not used to interpret this result as normal/abnormal. MPV (test code = 21603-0) 9.7 fL 9.5-12.9 NRBC/100 WBC (test code = 1551402143) See_Comment [Automated me ssage] The system which generated this result transmitted reference range: 0.0 - 10.0 /100 WBCs. The reference range was not used to interpret this result as normal/abnormal. NRBC x10^3 (test code = 9321378792) <0.01 See_Comment [Automated messa ge] The system which generated this result transmitted reference range: 10*3/?L. The reference range was not used to interpret this result as normal/abnormal. GRAN MAT (NEUT) % (test code = 770-8) 49.7 % IMM GRAN % (test code = 9690992261) 0.50 % LYMPH % (test code = 736-9) 41.0 % MONO % (test code = 5905-5) 6.5 % EOS % (test code = 713-8) 1.9 % BASO % (test code = 706-2) 0.4 % GRAN MAT x10^3(ANC) (test code = 3546485608) 6.39 10*3/uL 1.88-7.09 IMM GRAN x10^3 (test code = 9982302104) 0.07 10*3/uL 0-0.06 H LYMPH x10^3 (test code = 731-0) 5.27 10*3/uL 1.32-3.29 H MONO x10^3 (test code = 742-7) 0.84 10*3/uL 0.33-0.92 EOS x10^3 (test code = 711-2) 0.24 10*3/uL 0.03-0.39 BASO x10^3 (test code = 704-7) 0.05 10*3/uL 0.01-0.07 Lab Interpretation (test code = 87052-8) [facility]normal [facility] LancasterPOCT Stlo9105-88-38 08:45:00* Test Item Value Reference Range Interpretation Comme nts POCT PREG (test code = 1605) neg On board controls acceptable with C Line (test code = 3574) yes POCT PREG LOT # (test code = 3575) [id number] POCT PREG TEST DATE ( test code = 3576) 04/06/2022 Lab Interpretation (test cod e = 82803-8) Normal [facility] LancasterComplete Metabolic Hqbpy2612-95-84 08:30:00* Test Item Value Reference Range Interpretation Comme nts NA (test code = 6324643608) 137 mmol/L 135-145 K (test code = 9857576272) 3.3 mmol/L 3.5-5 L CL (test code = 3916653577) 102 mmol/L 98-108 CO2 TOTAL (test code = 7275873961) 24 mmol/L 23-31 AGAP (test code = 7370478430) 2-16 BUN (test code = 9134962309) 9 mg/dL 7-23 GLUCOSE (test code = 1684051945) 116 mg/dL 70-110 H CREATININE (test code = 2750405947) 0.48 mg/dL 0.5-1.04 L TOTAL BILI (test code = 5793442502) 0.3 mg/dL 0.1-1.1 CALCIUM (test code = 4655170425) 9.4 mg/dL 8.6-10.6 T PROTEIN (test code = 5761402684) 7.0 g/dL 6.3-8.2 ALBUMIN (test code = 1937376640) 4.3 g/dL 3.5-5 ALK PHOS (test code = 6433597550) 127 U/L 34-122 H ALTv (test code = 1742-6) 87 U/L 5-35 H AST(SGOT) (test code = 1815983734) 34 U/L 13-40 eGFR Calculation (Non-) (test code = 3502932027) mL/min/1.73m2 eGFR Calculation () (test code = 4182922827) mL/min/1.73m2 DARWIN (test code = DARWIN) Association [...] imaging tests). Lab Interpretation (test code = 04461-1) [facility]normal [facility] LancasterLipase, [id number] 08:30:00* Test Item Value Reference Range Interpretation Comme nts LIPASE (test code = 9658854315) 297 U/L 0-220 H Lab Interpretation (test cod e = 06365-5) Abnormal [facility] LancasterURINALYSIS2021-02-07 19:25:00* Test Item Value Reference Range Interpretation Comme nts APPEARANCE (test code = 5687928639) Clear Clear COLOR (test code = 6532398579) Straw Yellow A PH (test code = 0111032824) 4.8-8.0 SP GRAVITY (test code = 8711393196) 1.003-1.030 GLU U QUAL (test code = 8440528722) Normal Normal BLOOD (test code = 8130532748) 1+ Negative A KETONES (test code = 5616209692) Negative Negative PROTEIN (test code = 2887-8) Negative Negative UROBILIN (test code = 8934045176) Normal Normal BILIRUBIN (test code = 3751949647) Negative Negative NITRITE (test code = 0843343010) Negative Negative LEUK MARC (test code = 9326175411) Negative Negative RBC/HPF (test code = 4140366371) See_Comment [Automated mention] The system which generated this result transmitted reference range: 0 - 3 HPF. The reference range was not used to interpret this result as normal/abnormal. WBC/HPF (test code = 6360066836) <1 See_Comment [Automated [employer]if[employer]] The system which generated this result transmitted reference range: 0 - 5 HPF. The reference range was not used to interpret this result as normal/abnormal. BACTERIA (test code = 6088156008) Few Negative A MUCOUS (test code = 7623399834) Slight Negative LPF A SQ EPITH (test code = 4474683899) HPF Lab Interpretation (test code = 43565-4) Abnormal [facility] [id number] 19:09:00* Test Item Value Reference Range Interpretation Comme nts TROPONIN I (test code = 2909416279) <0.012 See_Comment [Automated message] The system which [...] biotin. ? Lab Interpretation (test code = 37199-1) Normal [facility] / [facility] - DR[facility] S[facility] SPXNJK8986-77-99 19:09:00* Test Item Value Reference Range Interpretation Comme nts BENZO U (test code = 4754247462) Presumptive Positive Negative A ROSA U (test code = 8855035610) Negative Negative AMPHET (test code = 6140284078) Negative Negative THC (test code = 4551161764) Negative Negative METHADONE (test code = 7182417949) Negative Negative Meth U (test code = 5966083455) Negative Negative OPIATES (test code = 6428800092) Negative Negative Cocaine Metabolite (test code = 3471666651) Negative Negative PROPOXY (test code = 9845024031) Negative Negative Tric U (test code = 8466114232) Negative Negative PCP (test code = 4156692704) Negative Negative OXYCOD (test code = 7349446023) Negative Negative DARWIN (test code = DARWIN) [...] legal testing). Lab Interpretation (test code = 34098-3) Abnormal [facility]. METABOLIC PANEL (77545)2020-08-14 19:01:00* Test Item Value Reference Range Interpretation Comme nts NA (test code = 1373509712) 138 mmol/L 135-145 K (test code = 0780785723) 4.5 mmol/L 3.5-5 CL (test code = 9108944010) 106 mmol/L 98-108 CO2 TOTAL (test code = 9927967301) 21 mmol/L 23-31 L AGAP (test code = 6730767474) 2-16 BUN (test code = 0464085459) 13 mg/dL 7-23 GLUCOSE (test code = 7764716227) 97 mg/dL 70-110 CREATININE (test code = 4407419629) 0.48 mg/dL 0.5-1.04 L TOTAL BILI (test code = 9252738390) 0.4 mg/dL 0.1-1.1 CALCIUM (test code = 3238642198) 9.1 mg/dL 8.6-10.6 T PROTEIN (test code = 6823434142) 7.5 g/dL 6.3-8.2 ALBUMIN (test code = 6555454262) 4.3 g/dL 3.5-5 ALK PHOS (test code = 6758878617) 62 U/L 34-122 ALTv (test code = 1742-6) 19 U/L 5-35 AST(SGOT) (test code = 4994411156) 26 U/L 13-40 eGFR Calculation (Non-) (test code = 1786434972) mL/min/1.73m2 eGFR Calculation () (test code = 7635025396) mL/min/1.73m2 DARWIN (test code = DARWIN) Association [...] imaging tests). Lab Interpretation (test code = 25281-5) [facility]:01:00* Test Item Value Reference Range Interpretation Comme nts LIPASE (test code = 2268364954) 76 U/L 0-220 Lab Interpretation (test cod e = 19482-1) Normal [facility] WITH [id number] 18:47:00* Test Item Value Reference Range Interpretation Comme nts WBC (test code = 6690-2) See_Comment H [Automated mention] The system which generated this result transmitted reference range: 4.30 - 11.10 10*3/?L. The reference range was not used to interpret this result as normal/abnormal. RBC (test code = 789-8) See_Comment [Baton] The system which generated this result transmitted [...] 34.3 g/dL 31.6-35.1 RDW-SD (test code = 63942-6) 42.0 fL 39-49.9 RDW-CV (test code = 788-0) 13.4 % 12-15.5 PLT (test code = 777-3) See_Comment [Automated messa ge] The system which generated this result transmitted reference range: 166 - 358 10*3/?L. The reference range was not used to interpret this result as normal/abnormal. MPV (test code = 79695-0) 9.9 fL 9.5-12.9 NRBC/100 WBC (test code = 5986483721) See_Comment [Automated Silent Communication ssage] The system which generated this result transmitted reference range: 0.0 - 10.0 /100 WBCs. The reference range was not used to interpret this result as normal/abnormal. NRBC x10^3 (test code = 5394842152) <0.01 See_Comment [Automated messa ge] The system which generated this result transmitted reference range: 10*3/?L. The reference range was not used to interpret this result as normal/abnormal. GRAN MAT (NEUT) % (test code = 770-8) 60.1 % IMM GRAN % (test code = 1869732589) 0.40 % LYMPH % (test code = 736-9) 31.3 % MONO % (test code = 5905-5) 6.0 % EOS % (test code = 713-8) 1.9 % BASO % (test code = 706-2) 0.3 % GRAN MAT x10^3(ANC) (test code = 3265246090) 6.96 10*3/uL 1.88-7.09 IMM GRAN x10^3 (test code = 3260766500) 0.05 10*3/uL 0-0.06 LYMPH x10^3 (test code = 731-0) 3.62 10*3/uL 1.32-3.29 H MONO x10^3 (test code = 742-7) 0.69 10*3/uL 0.33-0.92 EOS x10^3 (test code = 711-2) 0.22 10*3/uL 0.03-0.39 BASO x10^3 (test code = 704-7) 0.04 10*3/uL 0.01-0.07 Lab Interpretation (test code = 78557-4) [facility] 1 [id number] 18:17:08No acute cardiopulmonary abnormality. Preliminary Report Dictated [...] reviewed this study and agree with theabove report.[facility] LancasterLactic Acid Whole [id number] 18:11:00* Test Item Value Reference Range Interpretation Comme nts LACTIC ACID (test code = 3802091222) 1.95 mmol/L 0.5-2.2 Lab Interpretation (test cod e = 26775-5) [facility] PEL[facility] WO [id number] 05:45:24No acute abdominopelvic abnormality. No urolithiasis. 2.5 [...] reviewed this study and agree with the abovereport.[facility] LancasterPOAK [id number] 03:10:00* Test Item Value Reference Range Interpretation Comme nts POCT PREG (test code = 1605) Negative On board controls acceptable with C Line (test code = 3574) Present POCT PREG LOT # (test code = 3575) [id number] POCT PREG TEST DATE ( test code = 3576) 03/07/2022 Lab Interpretation (test cod e = 78781-9) Normal [facility] with Rzzjurbcjuqd4640-97-75 03:05:00* Test Item Value Reference Range Interpretation Comme [facility] WBC (test code = 6690-2) See_Comment [...] 34.7 g/dL 31.6-35.1 RDW-SD (test code = 82624-9) 42.0 fL 39-49.9 RDW-CV (test code = 788-0) 13.5 % 12-15.5 PLT (test code = 777-3) See_Comment [Automated message] The system which generated this result transmitted reference range: 166 - 358 10*3/?L. The reference range was not used to interpret this result as normal/abnormal. MPV (test code = 47959-9) 9.8 fL 9.5-12.9 NRBC/100 WBC (test code = 8867303675) See_Comment [Automated message] The system which generated this result transmitted reference range: 0.0 - 10.0 /100 WBCs. The reference range was not used to interpret this result as normal/abnormal. NRBC x10^3 (test code = 7854973522) <0.01 See_Comment [Automated message] The system which generated this result transmitted reference range: 10*3/?L. The reference range was not used to interpret this result as normal/abnormal. GRAN MAT (NEUT) % (test code = 770-8) 66.2 % IMM GRAN % (test code = 3899378972) 0.60 % LYMPH % (test code = 736-9) 25.4 % MONO % (test code = 5905-5) 5.6 % EOS % (test code = 713-8) 1.9 % BASO % (test code = 706-2) 0.3 % GRAN MAT x10^3(ANC) (test code = 5221971733) 10.64 10*3/uL 1.88-7.09 H IMM GRAN x10^3 (test code = 2562108995) 0.09 10*3/uL 0-0.06 H LYMPH x10^3 (test code = 731-0) 4.09 10*3/uL 1.32-3.29 H MONO x10^3 (test code = 742-7) 0.90 10*3/uL 0.33-0.92 EOS x10^3 (test code = 711-2) 0.31 10*3/uL 0.03-0.39 BASO x10^3 (test code = 704-7) 0.05 10*3/uL 0.01-0.07 Lab Interpretation (test code = 36430-3) [facility] LancasterUrinalysis2021-02-[facility] 02:56:00* Test Item Value Reference Range Interpretation Comme nts APPEARANCE (test code = 5431778187) Hazy Clear A COLOR (test code = 0912002346) Yellow Yellow PH (test code = 8444870994) 4.8-8.0 SP GRAVITY (test code = 0434712812) 1.003-1.030 GLU U QUAL (test code = 8351541578) Normal Normal BLOOD (test code = 2888008323) Negative Negative KETONES (test code = 3794433178) Negative Negative PROTEIN (test code = 2887-8) Negative Negative UROBILIN (test code = 1246816164) Normal Normal BILIRUBIN (test code = 0662460387) Negative Negative NITRITE (test code = 2590104746) Negative Negative LEUK MARC (test code = 8713181168) Negative Negative RBC/HPF (test code = 9752225846) See_Comment [Automated messa ge] The system which generated this result transmitted reference range: 0 - 3 HPF. The reference range was not used to interpret this result as normal/abnormal. WBC/HPF (test code = 3162739687) See_Comment [Automated Aerovance[employer] ge] The system which generated this result transmitted reference range: 0 - 5 HPF. The reference range was not used to interpret this result as normal/abnormal. BACTERIA (test code = 2849428708) Few Negative A MUCOUS (test code = 7474450691) Slight Negative LPF A SQ EPITH (test code = 8783078547) HPF YEAST BUD (test code = 8498896190) See_Comment H [Automated messa ge] The system which generated this result transmitted reference range: <=1 HPF. The reference range was not used to interpret this result as normal/abnormal. Lab Interpretation (test code = 31901-6) [facility] LancasterTroponin [id number] 02:24:00* Test Item Value Reference Range Interpretation Comme nts TROPONIN I (test code = 5273961452) <0.012 See_Comment [Automated message] The system which [...] biotin. ? Lab Interpretation (test code = 48344-4) [facility] (ID NOW RAPID TESTING)2020-08-11 02:15:00* Test Item Value Reference Range Interpretation Comme nts SARS-CoV-2 Rapid ID NOW (test code = 52252-2) Not Detected Not Detected DARWIN (test code = DARWIN) ID NOW COVID-19 As say is an isothermal nucleic acid amplification test intended for the qualitative detection of nucleic acid from SARS-CoV-2 viral RNA in nasopharyngeal ([employer]) specimens. It is used under Emergency Use [...] clinically indicated. Lab Interpretation (test code = 60861-7) Normal [facility] Metabolic Panel (NA, K, CL, CO2, GLUCOSE, BUN, CREATININE, CA)2020-08-11 02:13:00* Test Item Value Reference Range Interpretation Comme nts NA (test code = 3156020636) 137 mmol/L 135-145 K (test code = 8479327412) 4.0 mmol/L 3.5-5 CL (test code = 5553676814) 107 mmol/L 98-108 CO2 TOTAL (test code = 5762267775) 19 mmol/L 23-31 L AGAP (test code = 0616168395) 2-16 BUN (test code = 2191458901) 10 mg/dL 7-23 GLUCOSE (test code = 0458761876) 106 mg/dL 70-110 CREATININE (test code = 6118967726) 0.47 mg/dL 0.5-1.04 L CALCIUM (test code = 0947418660) 9.2 mg/dL 8.6-10.6 eGFR Calculation (Non-) (test code = 9934797135) mL/min/1.73m2 eGFR Calculation () (test code = 8185402322) mL/min/1.73m2 DARWIN (test code = DARWIN) Association [...] imaging tests). Lab Interpretation (test code = 90678-5) [facility] (ALB, T.PRO, BILI T, BU/BC, ALT, AST, ALK PHOS)2020-08-11 02:13:00* Test Item Value Reference Range Interpretation Comme nts TOTAL BILI (test code = 7384214954) 0.4 mg/dL 0.1-1.1 BILI UNCON (test code = 4841494031) 0.3 mg/dL 0.1-1.1 BILI CONJ (test code = 0952992401) 0.0 mg/dL 0-0.3 T PROTEIN (test code = 2524948318) 7.5 g/dL 6.3-8.2 ALBUMIN (test code = 2534569428) 4.4 g/dL 3.5-5 ALK PHOS (test code = 9694810794) 48 U/L 34-122 ALTv (test code = 1742-6) 12 U/L 5-35 AST(SGOT) (test code = 1130866324) 22 U/L 13-40 Lab Interpretation (test cod e = 36310-8) Normal [facility] LancasterLipase [id number] 02:13:00* Test Item Value Reference Range Interpretation Comme nts LIPASE (test code = 0241350533) 78 U/L 0-220 Lab Interpretation (test cod e = 33120-5) Normal [facility] LancasterLactic Acid Whole Lhhps8998-08-18 02:05:00* Test Item Value Reference Range Interpretation Comme nts LACTIC ACID (test code = 7779418244) 1.47 mmol/L 0.5-2.2 Lab Interpretation (test cod e = 12775-4) Normal [facility] FOREARM 2 VW [id number] 14:31:40No acute bony abnormality. Soft tissue swelling. [...] FOREARM 2 VW LEFTHISTORY: forearm pain COMPARISON: Non e.FINDINGS: Radiographs of the left forearm demonstrate no acute fractures ordislocations. Negativeulnar variance is noted. Marginal osteophytosis isseen at the ulnar trochlear joint with subchondral sclerosis. The alignmentis anatomic. Minimal soft tissue swelling is present in the distal forearm. IMPRESSIONNo acute bony abnormality.Soft tissue swelling.Osteoarthrosis of the elbow.Preliminary Report Dictated by Resident: Mickey Torres MD., have reviewed this study and agree with the abovereport.[facility] (ID NOW RAPID TESTING)2020-08-07 14:18:00* Test Item Value Reference Range Interpretation Comme nts SARS-CoV-2 Rapid ID NOW (test code = 75026-2) Not Detected Not Detected DARWIN (test code = DARWIN) ID NOW COVID-19 As say is an isothermal nucleic acid amplification test intended for the qualitative detection of nucleic acid from SARS-CoV-2 viral RNA in nasopharyngeal ([employer]) specimens. It is used under Emergency Use [...] clinically indicated. Lab Interpretation (test code = 36542-7) Normal [facility] LancasterTROPONIN [id number] 02:54:00* Test Item Value Reference Range Interpretation Comme nts TROPONIN I (test code = 3483020113) <0.012 See_Comment [Automated message] The system which [...] biotin. ? Lab Interpretation (test code = 85021-2) [facility]2020-12-25 02:37:00* Test Item Value Reference Range Interpretation Comme nts LIPASE (test code = 6689708235) 76 U/L 0-220 Lab Interpretation (test cod e = 23079-1) Normal [facility]URINALYSIS2020-12-25 01:54:00* Test Item Value Reference Range Interpretation Comme nts APPEARANCE (test code = 5042198493) Clear Clear COLOR (test code = 1465047203) Straw Yellow A PH (test code = 9842955396) 4.8-8.0 SP GRAVITY (test code = 5125931133) 1.003-1.030 GLU U QUAL (test code = 7730413481) Normal Normal BLOOD (test code = 8891286806) 3+ Negative A KETONES (test code = 6643524935) Negative Negative PROTEIN (test code = 2887-8) Negative Negative UROBILIN (test code = 6795582312) Normal Normal BILIRUBIN (test code = 1303282583) Negative Negative NITRITE (test code = 3340637801) Negative Negative LEUK MARC (test code = 5329221117) Negative Negative RBC/HPF (test code = 2320094574) See_Comment [Automated messa ge] The system which generated this result transmitted reference range: 0 - 3 HPF. The reference range was not used to interpret this result as normal/abnormal. WBC/HPF (test code = 9091817601) <1 See_Comment [Automated messa ge] The system which generated this result transmitted reference range: 0 - 5 HPF. The reference range was not used to interpret this result as normal/abnormal. BACTERIA (test code = 8973600857) Few Negative A MUCOUS (test code = 8177040975) Slight Negative LPF A SQ EPITH (test code = 8207914468) HPF Lab Interpretation (test code = 17037-6) Abnormal [facility] WITH [id number] 00:57:00* Test Item Value Reference Range Interpretation [...] 34.0 g/dL 31.6-35.1 RDW-SD (test code = 40953-4) 41.7 fL 39-49.9 RDW-CV (test code = 788-0) 13.2 % 12-15.5 PLT (test code = 777-3) See_Comment [Automated messa ge] The system which generated this result transmitted reference range: 166 - 358 10*3/?L. The reference range was not used to interpret this result as normal/abnormal. MPV (test code = 26563-9) 9.4 fL 9.5-12.9 L NRBC/100 WBC (test code = 0319477916) See_Comment [Automated Silent Communication ssage] The system which generated this result transmitted reference range: 0.0 - 10.0 /100 WBCs. The reference range was not used to interpret this result as normal/abnormal. NRBC x10^3 (test code = 7751171583) <0.01 See_Comment [Automated Aerovancea ge] The system which generated this result transmitted reference range: 10*3/?L. The reference range was not used to interpret this result as normal/abnormal. GRAN MAT (NEUT) % (test code = 770-8) 51.8 % IMM GRAN % (test code = 2166237866) 0.50 % LYMPH % (test code = 736-9) 40.7 % MONO % (test code = 5905-5) 4.0 % EOS % (test code = 713-8) 2.5 % BASO % (test code = 706-2) 0.5 % GRAN MAT x10^3(ANC) (test code = 9746682232) 5.38 10*3/uL 1.88-7.09 IMM GRAN x10^3 (test code = 6970688882) 0.05 10*3/uL 0-0.06 LYMPH x10^3 (test code = 731-0) 4.22 10*3/uL 1.32-3.29 H MONO x10^3 (test code = 742-7) 0.42 10*3/uL 0.33-0.92 EOS x10^3 (test code = 711-2) 0.26 10*3/uL 0.03-0.39 BASO x10^3 (test code = 704-7) 0.05 10*3/uL 0.01-0.07 Lab Interpretation (test code = 56045-5) [facility] LancasterADC,CLC OR [facility] ONLY - INFLUENZA A & B DIRECT [id number] 00:51:00* Test Item Value Reference Range Interpretation Comme nts Influenza A (test code = 05250-1) Negative Negative Influenza B (test code = 90101-2) Negative Negative Lab Interpretation (test cod e = 70919-0) Normal [facility] LancasterPOCT [id number] 00:51:00* Test Item Value Reference Range Interpretation Comme nts POCT PREG (test code = 1605) negative On board controls acceptable with C Line (test code = 3574) present POCT PREG LOT # (test code = 3575) [id number] POCT PREG TEST DATE ( test code = 3576) 11/04/2021 Lab Interpretation (test cod e = 42498-1) Normal [facility] LancasterTROPONIN [id number] 00:46:00* Test Item Value Reference Range Interpretation Comme nts TROPONIN I (test code = 7859083581) <0.012 See_Comment [Automated message] The system which [...] biotin. ? Lab Interpretation (test code = 40887-9) [facility] (NA, K, CL, CO2, GLUCOSE, BUN, CREATININE, CA)2020-07-01 00:46:00* Test Item Value Reference Range Interpretation Comme nts NA (test code = 6406524901) 141 mmol/L 135-145 K (test code = 8786636735) 3.8 mmol/L 3.5-5 CL (test code = 7576505752) 108 mmol/L 98-108 CO2 TOTAL (test code = 3645199083) 25 mmol/L 23-31 AGAP (test code = 5684162791) 2-16 BUN (test code = 6849671282) 10 mg/dL 7-23 GLUCOSE (test code = 2444986962) 92 mg/dL 70-110 CREATININE (test code = 1518322981) 0.58 mg/dL 0.5-1.04 CALCIUM (test code = 5557769174) 9.4 mg/dL 8.6-10.6 eGFR Calculation (Non-) (test code = 9856420257) mL/min/1.73m2 eGFR Calculation () (test code = 8349353858) mL/min/1.73m2 DARWIN (test code = DARWIN) Association [...] or urine or abnormalities in imaging tests). [facility] LancasterN-TERMINAL [id number] 00:43:00* Test Item Value Reference Range Interpretation Comme nts NT-proBNP (test code = 7985310077) 332 pg/mL See_Comment H [Automated message] The system which generated this result transmitted reference range: <=125. The reference range was not used to interpret this result as normal/abnormal. DARWIN (test code = DARWIN) Biotin has been reported to cause a negative bias, interpret results relative to patient's use of biotin. Lab Interpretation (test code = 67896-0) [facility]normal [facility] CHEST 1 [id number] 00:20:50No acute cardiopulmonary abnormality Preliminary Report Dictated [...] reviewed this study and agree with the abovereport.[facility] CERVICAL SPINE WO [id number] 23:23:[address] EXAMINATION: CT [...] lung apices are unremarkable. IMPRESSIONUnremarkable cervical spine CT.[facility] LancasterPOAK Jgll2564-82-00 01:50:00* Test Item Value Reference Range Interpretation Comme nts POCT PREG (test code = 1605) Negative On board controls acceptable with C Line (test code = 3574) Present POCT PREG LOT # (test code = 3575) [id number] POCT PREG TEST DATE ( test code = 3576) 10/05/2021 Lab Interpretation (test cod e = 11912-2) Normal [facility] LancasterTroponin [id number] 01:24:00* Test Item Value Reference Range Interpretation Comme nts TROPONIN I (test code = 1065953801) <0.012 See_Comment [Automated message] The system which [...] biotin. ? Lab Interpretation (test code = 73173-9) [facility] (ID NOW RAPID TESTING)2020-06-13 01:22:00* Test Item Value Reference Range Interpretation Comme nts SARS-CoV-2 Rapid ID NOW (test code = 17938-3) Not Detected Not Detected DARWIN (test code = DARWIN) ID NOW COVID-19 As say is an isothermal nucleic acid amplification test intended for the qualitative detection of nucleic acid from SARS-CoV-2 viral RNA in nasopharyngeal ([employer]) specimens. It is used under Emergency Use [...] clinically indicated. Lab Interpretation (test code = 50610-8) Normal [facility] LancasterD-ECZHO0219-21-49 01:16:00* Test Item Value Reference Range Interpretation Comments D-DIMER (test code = 4305774775) See_Comment [Automated message] The system which generated [...] a diagnosis. Lab Interpretation (test code = 92034-1) Normal [facility] LancasterBasi Metabolic [facility] (NA, K, CL, CO2, GLUCOSE, BUN, CREATININE, CA)2020-06-13 01:13:00* Test Item Value Reference Range Interpretation Comme nts NA (test code = 4169900846) 137 mmol/L 135-145 K (test code = 3273271285) 4.2 mmol/L 3.5-5 CL (test code = 4338286223) 103 mmol/L 98-108 CO2 TOTAL (test code = 2484654807) 25 mmol/L 23-31 AGAP (test code = 2965368319) 2-16 BUN (test code = 3057979362) 11 mg/dL 7-23 GLUCOSE (test code = 2349985274) 98 mg/dL 70-110 CREATININE (test code = 7696887942) 0.52 mg/dL 0.5-1.04 CALCIUM (test code = 8100191704) 10.3 mg/dL 8.6-10.6 eGFR Calculation (Non-) (test code = 2625443074) mL/min/1.73m2 eGFR Calculation () (test code = 2911936262) mL/min/1.73m2 DARWIN (test code = DARWIN) Association [...] or urine or abnormalities in imaging tests). [facility] LancasterHep[facility] Function [facility] (ALB, T.PRO, BILI T, BU/BC, ALT, AST, ALK PHOS)2020-06-13 01:13:00* Test Item Value Reference Range Interpretation Comme nts TOTAL BILI (test code = 8843819053) 0.5 mg/dL 0.1-1.1 BILI UNCON (test code = 3452589422) 0.3 mg/dL 0.1-1.1 BILI CONJ (test code = 8934828300) 0.0 mg/dL 0-0.3 T PROTEIN (test code = 7367808852) 7.3 g/dL 6.3-8.2 ALBUMIN (test code = 6134549957) 4.2 g/dL 3.5-5 ALK PHOS (test code = 1396937729) 85 U/L 34-122 ALTv (test code = 1742-6) 66 U/L 5-35 H AST(SGOT) (test code = 8960281813) 32 U/L 13-40 Lab Interpretation (test cod e = 80416-8) [facility]normal [facility] LancasterLipase [id number] 01:13:00* Test Item Value Reference Range Interpretation Comme nts LIPASE (test code = 1701322933) 60 U/L 0-220 Lab Interpretation (test cod e = 56066-4) Normal [facility] LancasterUrinalysis2020-12-07 01:03:00* Test Item Value Reference Range Interpretation Comme nts APPEARANCE (test code = 8890285974) Clear Clear COLOR (test code = 5230092414) Straw Yellow A PH (test code = 5230567191) 4.8-8.0 SP GRAVITY (test code = 2198659575) 1.003-1.030 GLU U QUAL (test code = 6686218855) Normal Normal BLOOD (test code = 6427742379) Negative Negative KETONES (test code = 8704968369) Negative Negative PROTEIN (test code = 2887-8) Negative Negative UROBILIN (test code = 7110279123) Normal Normal BILIRUBIN (test code = 0600265048) Negative Negative NITRITE (test code = 5813670261) Negative Negative LEUK MARC (test code = 0759540587) Negative Negative RBC/HPF (test code = 0891232618) See_Comment [Automated Aerovancea ge] The system which generated this result transmitted reference range: 0 - 3 HPF. The reference range was not used to interpret this result as normal/abnormal. WBC/HPF (test code = 1599596375) See_Comment [Automated Aerovance[employer] ge] The system which generated this result transmitted reference range: 0 - 5 HPF. The reference range was not used to interpret this result as normal/abnormal. BACTERIA (test code = 8096844735) Negative Negative MUCOUS (test code = 6655399401) Slight Negative LPF A SQ EPITH (test code = 5799808081) HPF Lab Interpretation (test code = 41966-3) [facility]normal [facility] LancasterCB with Qxvzkgmdrxbu2980-35-70 00:55:00* Test Item Value Reference Range Interpretation [...] 34.5 g/dL 31.6-35.1 RDW-SD (test code = 82954-8) 42.5 fL 39-49.9 RDW-CV (test code = 788-0) 13.5 % 12-15.5 PLT (test code = 777-3) See_Comment [Automated messa ge] The system which generated this result transmitted reference range: 166 - 358 10*3/?L. The reference range was not used to interpret this result as normal/abnormal. MPV (test code = 34693-9) 10.1 fL 9.5-12.9 NRBC/100 WBC (test code = 2472799468) See_Comment [Automated Silent Communication ssage] The system which generated this result transmitted reference range: 0.0 - 10.0 /100 WBCs. The reference range was not used to interpret this result as normal/abnormal. NRBC x10^3 (test code = 0586667190) <0.01 See_Comment [Automated messa ge] The system which generated this result transmitted reference range: 10*3/?L. The reference range was not used to interpret this result as normal/abnormal. GRAN MAT (NEUT) % (test code = 770-8) 61.9 % IMM GRAN % (test code = 0366627309) 0.60 % LYMPH % (test code = 736-9) 30.6 % MONO % (test code = 5905-5) 5.2 % EOS % (test code = 713-8) 1.4 % BASO % (test code = 706-2) 0.3 % GRAN MAT x10^3(ANC) (test code = 7073862497) 8.03 10*3/uL 1.88-7.09 H IMM GRAN x10^3 (test code = 8347893629) 0.08 10*3/uL 0-0.06 H LYMPH x10^3 (test code = 731-0) 3.97 10*3/uL 1.32-3.29 H MONO x10^3 (test code = 742-7) 0.68 10*3/uL 0.33-0.92 EOS x10^3 (test code = 711-2) 0.18 10*3/uL 0.03-0.39 BASO x10^3 (test code = 704-7) 0.04 10*3/uL 0.01-0.07 Lab Interpretation (test code = 19062-4) [facility] LancasterCOVID[facility] (ID NOW RAPID TESTING)2020-05-17 00:27:00* Test Item Value Reference Range Interpretation Comme nts SARS-CoV-2 Rapid ID NOW (test code = 78062-3) Not Detected Not Detected DARWIN (test code = DARWIN) ID NOW COVID-19 As say is an isothermal nucleic acid amplification test intended for the qualitative detection of nucleic acid from SARS-CoV-2 viral RNA in nasopharyngeal (SUPERVISOR PILE DRIVING) specimens. It is used under Emergency Use [...] clinically indicated. Lab Interpretation (test code = 08113-2) Normal [facility] Metabolic Panel (NA, K, CL, CO2, GLUCOSE, BUN, CREATININE, CA)2020-05-17 00:00:00* Test Item Value Reference Range Interpretation Comme nts NA (test code = 5286494820) 136 mmol/L 135-145 K (test code = 2661950223) 3.6 mmol/L 3.5-5 CL (test code = 0431280182) 103 mmol/L 98-108 CO2 TOTAL (test code = 7119766331) 26 mmol/L 23-31 AGAP (test code = 8357684041) 2-16 BUN (test code = 7280513604) 13 mg/dL 7-23 GLUCOSE (test code = 0948772036) 130 mg/dL 70-110 H CREATININE (test code = 6021278889) 0.58 mg/dL 0.5-1.04 CALCIUM (test code = 0154126388) 9.9 mg/dL 8.6-10.6 eGFR Calculation (Non-) (test code = 3518574292) mL/min/1.73m2 eGFR Calculation () (test code = 5471809180) mL/min/1.73m2 DARWIN (test code = DARWIN) Association [...] imaging tests). Lab Interpretation (test code = 18246-8) [facility] (ALB, T.PRO, BILI T, BU/BC, ALT, AST, ALK PHOS)2020-05-17 00:00:00* Test Item Value Reference Range Interpretation Comme nts TOTAL BILI (test code = 0260510015) 0.4 mg/dL 0.1-1.1 BILI UNCON (test code = 3195423751) 0.3 mg/dL 0.1-1.1 BILI CONJ (test code = 5121910818) 0.0 mg/dL 0-0.3 T PROTEIN (test code = 0246238021) 7.3 g/dL 6.3-8.2 ALBUMIN (test code = 3951042604) 4.3 g/dL 3.5-5 ALK PHOS (test code = 4637766279) 118 U/L 34-122 ALTv (test code = 1742-6) 119 U/L 5-35 H AST(SGOT) (test code = 3102954848) 47 U/L 13-40 H Lab Interpretation (test cod e = 72370-1) [facility]normal [facility] [id number] 00:00:00* Test Item Value Reference Range Interpretation Comme nts LIPASE (test code = 5597711487) 70 U/L 0-220 Lab Interpretation (test cod e = 42394-4) [facility] with Zypovmdyandn5724-14-05 23:49:00* Test Item Value Reference Range Interpretation Comme nts WBC (test code = 6690-2) See_Comment [Automated Aerovancea ge] The system which generated this result transmitted reference range: 4.30 - 11.10 10*3/?L. The reference range was not used to interpret this result as normal/abnormal. RBC (test code = 789-8) See_Comment [Baton] The system which generated this result transmitted [...] 33.3 g/dL 31.6-35.1 RDW-SD (test code = 61619-3) 42.8 fL 39-49.9 RDW-CV (test code = 788-0) 13.5 % 12-15.5 PLT (test code = 777-3) See_Comment [Baton] The system which generated this result transmitted reference range: 166 - 358 10*3/?L. The reference range was not used to interpret this result as normal/abnormal. MPV (test code = 98781-0) 9.8 fL 9.5-12.9 NRBC/100 WBC (test code = 8930825020) See_Comment [[employer]] The system which generated this result transmitted reference range: 0.0 - 10.0 /100 WBCs. The reference range was not used to interpret this result as normal/abnormal. NRBC x10^3 (test code = 1739460341) <0.01 See_Comment [Automated [employer]] The system which generated this result transmitted reference range: 10*3/?L. The reference range was not used to interpret this result as normal/abnormal. GRAN MAT (NEUT) % (test code = 770-8) 62.5 % IMM GRAN % (test code = 1716632116) 0.50 % LYMPH % (test code = 736-9) 29.8 % MONO % (test code = 5905-5) 5.6 % EOS % (test code = 713-8) 1.1 % BASO % (test code = 706-2) 0.5 % GRAN MAT x10^3(ANC) (test code = 3126530601) 6.65 10*3/uL 1.88-7.09 IMM GRAN x10^3 (test code = 8126653578) 0.05 10*3/uL 0-0.06 LYMPH x10^3 (test code = 731-0) 3.17 10*3/uL 1.32-3.29 MONO x10^3 (test code = 742-7) 0.59 10*3/uL 0.33-0.92 EOS x10^3 (test code = 711-2) 0.12 10*3/uL 0.03-0.39 BASO x10^3 (test code = 704-7) 0.05 10*3/uL 0.01-0.07 [facility]2020-11-08 08:24:00* Test Item Value Reference Range Interpretation Comme nts ACETAMINOP (test code = 3459999173) 21.0 ug/mL 10-30 DARWIN (test code = DARWIN) Toxic: Greater joan n 200 ug/mL @ 4 hour post ingestion or greater than 50 ug/mL @ 12 hour post ingestion Lab Interpretation (test code = 98968-6) [facility]2020-11-08 06:37:00* Test Item Value Reference Range Interpretation Comme nts ALCOHOL (test code = 2934342311) <10 mg/dL DARWIN (test code = DARWIN) <10 Uceuisdc91-746 Toxic>100 Depression of PAPER SUPERVISOR>400 Fatalities Reported [facility] (NA, K, CL, CO2, GLUCOSE, BUN, CREATININE, CA)2020-05-15 06:35:00* Test Item Value Reference Range Interpretation Comme nts NA (test code = 8194563767) 137 mmol/L 135-145 K (test code = 5638515572) 4.0 mmol/L 3.5-5 CL (test code = 2091112021) 106 mmol/L 98-108 CO2 TOTAL (test code = 6228016299) 25 mmol/L 23-31 AGAP (test code = 8806690730) 2-16 BUN (test code = 2581398333) 9 mg/dL 7-23 GLUCOSE (test code = 4428302940) 95 mg/dL 70-110 CREATININE (test code = 8367441793) 0.53 mg/dL 0.5-1.04 CALCIUM (test code = 1489217513) 9.0 mg/dL 8.6-10.6 eGFR Calculation (Non-) (test code = 1786172925) mL/min/1.73m2 eGFR Calculation () (test code = 2071852626) mL/min/1.73m2 DARWIN (test code = DARWIN) Association [...] or urine or abnormalities in imaging tests). [facility] (ALB, T.PRO, BILI T, BU/BC, ALT, AST, ALK PHOS)2020-05-15 06:35:00* Test Item Value Reference Range Interpretation Comme nts TOTAL BILI (test code = 7157270426) 0.4 mg/dL 0.1-1.1 BILI UNCON (test code = 4030982462) 0.2 mg/dL 0.1-1.1 BILI CONJ (test code = 3840828020) 0.0 mg/dL 0-0.3 T PROTEIN (test code = 1062762592) 6.3 g/dL 6.3-8.2 ALBUMIN (test code = 8844134152) 3.8 g/dL 3.5-5 ALK PHOS (test code = 8213779632) 117 U/L 34-122 ALTv (test code = 1742-6) 179 U/L 5-35 H AST(SGOT) (test code = 4715681980) 194 U/L 13-40 H Lab Interpretation (test cod e = 20463-3) [facility]normal [facility] Jlpke9368-81-42 06:35:00* Test Item Value Reference Range Interpretation Comme [facility] LIPASE (test code = 9514077897) 92 U/L 0-220 Lab Interpretation (test cod e = 78045-0) Normal [facility]aPTT2020-11-08 06:22:00* Test Item Value Reference Range Interpretation Comme nts APTT Patient (test code = 3173-2) See_Comment [Automated message] The system which generated this result transmitted reference range: 23 - 38 Seconds. The reference range was not used to interpret this result as normal/abnormal. DARWIN (test code = DARWIN) The [facility] patient population mean normal value for aPTT is 30 seconds. Lab Interpretation (test code = 78511-1) Normal [facility]inalysis2020-11-08 06:21:00* Test Item Value Reference Range Interpretation Comme nts APPEARANCE (test code = 6547870697) Clear Clear COLOR (test code = 5008493873) Yellow Yellow PH (test code = 2759120663) 4.8-8.0 SP GRAVITY (test code = 6364153063) 1.003-1.030 GLU U QUAL (test code = 4898061937) Normal Normal BLOOD (test code = 7521187469) Negative Negative KETONES (test code = 6558323876) Negative Negative PROTEIN (test code = 2887-8) Negative Negative UROBILIN (test code = 4316183966) Normal Normal BILIRUBIN (test code = 3466813053) Negative Negative NITRITE (test code = 1183293059) Negative Negative LEUK MARC (test code = 2587941741) Negative Negative RBC/HPF (test code = 0962543783) See_Comment [Automated messa ge] The system which generated this result transmitted reference range: 0 - 3 HPF. The reference range was not used to interpret this result as normal/abnormal. WBC/HPF (test code = 8626158885) <1 See_Comment [Automated messa ge] The system which generated this result transmitted reference range: 0 - 5 HPF. The reference range was not used to interpret this result as normal/abnormal. BACTERIA (test code = 9049923580) Negative Negative MUCOUS (test code = 0819818642) Slight Negative LPF A SQ EPITH (test code = 4158007488) HPF Lab Interpretation (test code = 71069-8) [facility]normal [facility] LancasterProthrombin Time (PT) / [id number] 06:20:00 * Test Item Value Reference Range [...] the indications. Lab Interpretation (test code = 49639-3) Normal [facility] / [facility] - DRUG SCREEN [id number] 06:19:00* Test Item Value Reference Range Interpretation Comme nts BENZO U (test code = 2781751172) Presumptive Positive Negative A ROSA U (test code = 9586340093) Negative Negative AMPHET (test code = 3412849157) Negative Negative THC (test code = 3853676655) Negative Negative METHADONE (test code = 5860364086) Negative Negative Meth U (test code = 1673491514) Negative Negative OPIATES (test code = 1925531850) Negative Negative Cocaine Metabolite (test code = 7711777154) Negative Negative PROPOXY (test code = 5115465670) Negative Negative Tric U (test code = 1434046251) Negative Negative PCP (test code = 6698884839) Negative Negative OXYCOD (test code = 0383364225) Negative Negative DARWIN (test code = DARWIN) [...] legal testing). Lab Interpretation (test code = 98560-4) Abnormal [facility] with Qkmxfxlapobu8380-44-77 06:07:00* Test Item Value Reference Range Interpretation Comme nts WBC (test code = 6690-2) See_Comment [Automated Aerovancea ge] The system which generated this result transmitted reference range: 4.30 - 11.10 10*3/?L. The reference range was not used to interpret this result as normal/abnormal. RBC (test code = 789-8) See_Comment [Automated Aerovancea Rifiniti] The system which generated this result transmitted [...] 34.3 g/dL 31.6-35.1 RDW-SD (test code = 37740-5) 43.4 fL 39-49.9 RDW-CV (test code = 788-0) 13.7 % 12-15.5 PLT (test code = 777-3) See_Comment [Automated messa ge] The system which generated this result transmitted reference range: 166 - 358 10*3/?L. The reference range was not used to interpret this result as normal/abnormal. MPV (test code = 22513-3) 9.7 fL 9.5-12.9 NRBC/100 WBC (test code = 6948429546) See_Comment [Automated [employer]ent [employer] ssage] The system which generated this result transmitted reference range: 0.0 - 10.0 /100 WBCs. The reference range was not used to interpret this result as normal/abnormal. NRBC x10^3 (test code = 1842029343) <0.01 See_Comment [Automated messa ge] The system which generated this result transmitted reference range: 10*3/?L. The reference range was not used to interpret this result as normal/abnormal. GRAN MAT (NEUT) % (test code = 770-8) 50.6 % IMM GRAN % (test code = 3904413237) 0.20 % LYMPH % (test code = 736-9) 42.1 % MONO % (test code = 5905-5) 5.5 % EOS % (test code = 713-8) 1.2 % BASO % (test code = 706-2) 0.4 % GRAN MAT x10^3(ANC) (test code = 1211671023) 4.31 10*3/uL 1.88-7.09 IMM GRAN x10^3 (test code = 3734721380) <0.03 0-0.06 LYMPH x10^3 (test code = 731-0) 3.58 10*3/uL 1.32-3.29 H MONO x10^3 (test code = 742-7) 0.47 10*3/uL 0.33-0.92 EOS x10^3 (test code = 711-2) 0.10 10*3/uL 0.03-0.39 BASO x10^3 (test code = 704-7) 0.03 10*3/uL 0.01-0.07 Lab Interpretation (test code = 74889-8) Abnormal [facility] Eukl1688-02-09 05:53:00* Test Item Value Reference Range Interpretation Comme nts POCT PREG (test code = 1605) Negative On board controls acceptable with C Line (test code = 3574) Present POCT PREG LOT # (test code = 3575) HCG [id number] POCT PREG TEST DATE ( test code = 3576) 10/05/2021 Lab Interpretation (test cod e = 47214-8) Normal [facility] Consult Notes Date/Time Note Provider Source 2024-11-01 09:43:46 Associated Order(s): CONSULT CARDIOLOGY [facility] Cardiology Consult Note Patient: Charity Roca [...] palpitations at rest. No syncopal attacks. Primary body specialist: Dr. Jerson MONTE dated 11/2023. 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 This report was dictated using [employer] and is subject to voice recognition errors. [...] feel free to call our office at [phone]. I would be happy to be of further assistance for Charity Roca wellbeing. Voice recognition software has been used to create portions of this document. An attempt to proofread has been made to minimize errors. Please do not hesitate to call with any questions. Natasha Hernandes MD 11/01/2024 9:43 AM [employer], Division of Cardiology [facility] - Health History and Physical Notes Date/Time Note Provider Source 2024-11-26 21:52:18 [facility] Hospitalist Admission H&P Date of Service: 11/26/2024 [...] catheterization done about 3-1/2 weeks ago at [place] and at that time patient did not [...] Problem Relation Age of Onset Heart Mother AR in her 40s Heart Father AR in his 60s SOCIAL HISTORY Social History [...] Impression No acute cardiopulmonary abnormality. HS:Y RL: 3587 End of Report. Findings of cardiac catheterization [...] user?: NO Patient will require observation [place] DEAD MAIL CHECKER was verified during stay Alexx Kwok MD [facility] 2024-11-03 12:52:39 Pre-Procedure Sedation Evaluation H&P from [...] completed and signed. Alec Antoine MD PGY-5, Healthcare Translator Pager: [phone] Cosigned by Dane Jurado MD at 11/03/2024 1:11 PM CDT Associated attestation - Dane Jurado MD - 11/03/2024 1:11 PM CDT I agree with the note as written Dane Jurado M.D. Interventional Cardiology Pager: [phone] INTERVENTIONAL CARDIOLOGY [facility] 2024-11-01 18:17:28 MCAWHITE Admit H&P PCP: Riddhi Montes Date of Service: 11/01/2024 CHIEF COMPLAINT: Chest pain HISTORY OF PRESENT ILLNESS Charity Roca is a 44 year old female with a PMH of morbid obesity, HTN, HLD, CAD s/p PCI (reported 10/06/2023, outpatient body specialist is Dr. Arthur), prior pancreatitis, PTSD, depression and anxiety who presented as a transfer from [facility] for unstable angina. The patient [...] BP. Cardiology consulted, recommended transfer to [facility] for invasive coronary angiography. Upon arrival to [facility], patient evaluated at bedside. Stated that [...] reflect atelectasis or infiltrate. RL: 781 AFC: 24087 11/01/2024 EKG with Sinus tachycardia, possible LA [...] Qtc 444 ms. Plan: - [facility] - C/w Heparin gtt - C/w ASA 81 mg QD, Plavix 75 mg QD - Increased Rosuvastatin to 40 mg QD - C/w Imdur 60 mg QD, consider increasing to 90 mg QD - NTG 0.4mg SL q5min prn angina - Morphine 2mg IV q4h prn angina - Telemetry, O2 per protocol, Electrolytes: K >4, Mg>2 - Patient's outpatient body specialist is Dr. Arthur PTSD Depression Anxiety Patient [...] amenable to plan. - Medrec with Christian Roberson in AM - C/w home Haldol [...] details. DOS 11/02/24 Rosario Virk MD, FACC [employer] Division of Cardiovascular Medicine [facility] 2024-11-01 00:05:09 MEDICINE [facility] ADMIT [...] protonix, ketorlac and it did not help. Utilization Review Rn: Dr. Arthur PAST MEDICAL HISTORY Past Medical History: Diagnosis Date Anxiety Hypertension PTSD (post-traumatic stress disorder) of family members. Past Surgical History: Procedure Laterality Date CHOLECYSTECTOMY TONSILLECTOMY Family History Problem Relation Age of Onset Heart Mother AR in her 40s Heart Father AR in his 60s ALLERGIES No Known Allergies [...] intervention for the workup and treatment of... [facility] 2023-02-16 01:18:50 Formatting of this n ote [...] mL/hr at 02/15/237, 1,000 mL at 02/15/23 2247 morpHINE (2 mg/mL) injection 2 mg, 2 mg, Slow IV Push, Q4HPRN, Flako Mercado MD, 2 mg at 02/15/23 2240 traMADoL (ULTRAM) tablet 50 mg, 50 mg, Oral, Q8HPJAMES, Flako Mercado MD Objective: Vitals: Vitals: 02/15/23 [...] acute, severe Comparison: September 11, 2021 RL: 98259 Ordering Clinician: LEEANNE WISE Technique: Axial CT [...] the ACR Incidental Findings Committee;Journal of the [employer] Volume 7, Issue 10, Pages 272-858, April 2010). CHEST 1 VW Result Date: [...] process is identified in the chest. RL: 3478 END OF REPORT Assessment and plan: Principal [...] Flako Mercado MD 02/16/2023 IM-INTERNAL MEDICINE STAFF [facility] Procedure Notes Date/Time Note Provider Source 2024-11-03 14:54:32 Procedure(s): AZ CATH PLMT L HRT & ARTS W/NJX & ANGIO IMG S&I; AZ IV DOP EDILSON&/OR PRESS C/EVERETT RSRV JEFRY 1ST VSL; AZ IV DOP EDILSON&/OR PRESS C/EVERETT RSRV JEFRY ADDL VSL Pre-Procedure Diagnose(s): Coronary artery disease involving kaltag coronary artery of kaltag heart with unstable angina pectoris Post-Procedure Diagnose(s): Coronary artery disease involving [place] coronary artery of [place] heart with unstable angina pectoris Left Heart Cath/Coronary Angiography Charity Roca Date of Service: 11/03/2024 2:55 PM Attending Physician: Dane Jurado MD Fellow: Dr. Jones Referring Physician: Dr. Al Hemyari Procedures Performed: LHC/Coronary Angiogram: CPT 53681 FFR of mLAD: CPT 57124 FFR of mRCA: CPT 27252 Indication/Diagnosis: ACS ([place]/NSTEMI) Consent: Risks, benefits, alternatives and complications of the procedure discussed with the patient, who understood and agreed to proceed. Aseptic technique: Chlorprep Local Anesthesia: 1% lidocaine without epinephrine Sedation: Moderate Access site: right femoral artery Closure Method: Angio-Seal Sterile dressing: yes Complications: none Procedures: After patient identification/verification, the patient was thereafter transferred to the mine laborer table. The access site was prepped and [...] MD 11/03/2024 2:55 PM IM-INTERVENTIONAL CARDIOLOGY STAFF [facility] Notes <thead> Date/Time Note Provider Source [...] Outcome: Adequate for discharge Maame Chen RN [facility] 2024-11-27 01:17:18 Problem: Falls, Risk of [...] within specified parameters Outcome: Progressing as expected [facility] 2024-11-26 22:27:16 Patient admitted to [facility] Med Surg for diagnosis of Chest pain Patient agrees to admission, discussed plan of care with patient and family. Patient is awake, alert, oriented, resp reg unlabored, color appropriate for race, PIV intact No adverse reaction to medications administered while in ED Belongings with patient to unit Report to Sneha RAMIREZ Santi Delgadillo RN [facility] 2024-11-26 22:26:34 Nurse Report Report given to Sneha RAMIREZ. Chief complaint, assessment findings, infusion verify and orders reviewed. Santi Delgadillo RN [facility] 2024-11-26 20:45:[address] Kwok pertaining to medication orders. BP was rechecked to be 125/[address] Kwok stated to hold the Nitro Paste, continue the Haldol 2mg administration, and give the Bentley PRN. [facility] 2024-11-26 17:49:47 Pt to ED via [...] placement 1 yr ago. 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 Metabolic Panel (02075) Lipase Magnesium N-Terminal Pro-Bnp Troponin I No [...] Electronically signed by: Klaudia Narvaez DO 11/26/24 0559 [facility] 2024-11-14 22:15:04 Radiology reported to RN that pt was not in room when he arrived to take her for CT. Aprox 10 min later pt still not in room. Pt eloped before dispo. 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 [facility] 2024-11-10 19:52:11 Pt arrived ambulatory without assist. Pt c/o left lower abd pain that started around 12pm today. 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 treatment: None Travel and Exposure Screening: Symptoms Does patient have any of these symptoms?: (not recorded) Exposure Screening Has patient had contact with someone with a communicable disease in the last month?: (not recorded) Diseases exposed to:: (not recorded) Is Patient ?: (not recorded) Exposure Date: (not recorded) Chief Complaint: Chief Complaint Patient presents with Abdominal Pain History of Present Illness: Cahrity Roca is a 44 year old female [...] History provided by: Patient and medical records balance truer used: No Abdominal Pain Pain location: LUQ [...] Additional chronic findings as detailed above. RL: 3457 End of Report Lab Results: Lab Results [...] 0.01 - 0.07 10*3/uL COMP. METABOLIC PANEL (17356) - Abnormal NA 137 135 - 145 [...] contrast Cbc with Diff Comp. Metabolic Panel (79765) Urinalysis POCT TEST Lipase Orders Placed This Encounter Medications morpHINE (4 mg/mL) injection 4 mg ondansetron (ZOFRAN (PF)) injection 4 mg iopamidol (ISOVUE 370-500 mL) injection 80 mL morpHINE (4 mg/mL) injection 4 mg KCL (KLOR-CON M20) tablet 40 mEq First Provider Eval: ED Events Date/Time Event User Comments 11/10/241999 First Provider Evaluation BOB GARCIA MD -- 11/10/241999 Medical Screening Begins BOB GARCIA MD -- ED COURSE Diagnosis/Impression as [...] illness or injury Details: Will follow-up with OB-LAND SURVEYING MANAGER Amount and/or Complexity of Data Reviewed Labs: [...] follow-up Riddhi Montes Relationship: PCP - General [facility] [address] [facility] [id number] Electronically signed by: Bob Garcia MD 11/11/24 0024 [facility] 2024-11-04 10:58:35 Pt tolerating meals Up with minimal assist Right site clean, dry and intact; covered with gauze and tegaderm Laya Langley RN [facility] 2024-11-04 06:19:25 Problem: Falls, Risk of [...] Outcome: Progressing as expected Anuradha Heard RN [facility] 2024-11-03 19:16:34 Problem: Falls, Risk of Goal: Absence of falls Outcome: Progressing as expected Problem: Discharge Planning Goal: Adequate to move to next level of care Outcome: Progressing as expected Goal: Knowledge of medication management Outcome: Progressing as expected Renato Mott RN [facility] 2024-11-03 04:24:10 Problem: Falls, Risk of [...] Outcome: Progressing as expected Omaira Diaz RN [facility] 2024-11-02 07:22:14 Problem: Falls, Risk of [...] Knowledge of medication management 11/02/2024720 by Omaira Daiz RN Outcome: Progressing as expected 11/02/2024719 by [...] Omaira Diaz RN Outcome: Progressing as expected [facility] 2024-11-02 07:21:23 Problem: Falls, Risk of Goal: [...] Goal: Patent airway Outcome: Progressing as expected [facility] 2024-11-01 14:02:33 Report given to JAMES Trejo. Susie Willard RN [facility] 2024-11-01 08:41:16 Images from the original note were not included. Pharmacy Recommendations for Patient Admission: Consider lowering dose of famotidine to 20mg once daily as patient has been taking this dose at home. The [facility] medication list has been updated and reflected in the chart below. Please use the ASSOCIATE PROFESSOR OF ENGINEERING Med List for ordering home doses during admission. Patient Adherence: Adherent to all medications. Source(s) used in interview: Patient Interview limitations: None Medications Added Medications Removed Medications Modified Alprazolam dose reduced to 1mg BID prn Famotidine ordered as 20mg BID Methocarbamol ordered as 500mg Q6H prn Allergies as of 10/31/2024 (No Known Allergies) Pharmacy Updated [employer] OF ENGINEERING Med List Medication Sig aspirin 81 mg [...] in the evening.) Outpatient Pharmacy Contact Information: [facility] [id number] - [place], [place] - [address] [facility] [address] [id number] - [place] [address] [facility] [address] [facility]/pharmacy #[id number] - [place], [place] - [address] [place] [phone] Thank you for the opportunity to participate in the care of this patient. Surekha Rowland RPH 8:38 AM, 11/01/2024 [facility] Department of Pharmacy - [facility] Phone: ADC: [phone] Surekha Rowland [facility] 2024-11-01 01:15:13 Problem: Falls, Risk of Goal: [...] Absence of infection Outcome: Progressing as expected [facility] 2024-11-01 00:27:06 Patient states pain to chest no 6/10-appears much more comfortable, Bp normotensive. Transported via W/C to 2217. Patient alert, warm, dry, pink, in no distress upon departure from ER [facility] 2024-11-01 00:22:38 Nurse Report Report given to Bhupinder RAMIREZ. Chief complaint, assessment findings, infusion verify and orders reviewed. Plan of care discussed at bedside with patient. Patient verbalized understanding. MAGGIE CACERES RN [facility] 2024-10-31 23:15:00 Patient continues to C/O persistent sharp midsternal chest pain 9/10. Medicated as ordered with GI cocktail po and Morphine 4 mg IV. [facility] 2024-10-31 22:15:00 Dr Garcia at bedside. Medicated with NTG 0.4 mg Sl for sharp chest pain 10/10 without relief. Patient then medicated with Zofran 4 mg Iv and Morphine 4 mg IV as ordered. Patient anxious, hypertensive. [facility] 2024-10-31 21:36:50 C/O onset sharp midsternal chest pain that radiates to left arm, left shoulder, and left scapula area-has been steadily worsening. Has had nausea and vomiting. Patient has had AR in the past, has cardiac stent X1 placed in September of last year. O2 at 2 liters/min placed without improvement to chest pain. 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 Pt's Utilization Review Rn Dr Peralta in [place]. No known aggravating or relieving factors. Pt has taken ASA 324 mg ASSOCIATE PROFESSOR OF ENGINEERING in the ED. Pt smokes 1/3PPD , No ETOH. Deneis any illcit drug use. No prolonged immobilization. No OCA. No leg edema or calf pain. Deneis any URI symptoms. No abdominal pain History provided by: Significant other and patient balance truer used: No Chest Pain Pain location: Epigastric [...] S/P Stent X 06 September 2023 Q-wave AR Tetanus received in last 5 years: Unknown [...] reflect atelectasis or infiltrate. RL: 781 AFC: 35697 Lab Results: Lab Results COMP. METABOLIC PANEL (64903) - Abnormal Result Value Ref Range NA [...] 1 vw TROPONIN I COMP. METABOLIC PANEL (14605) LIPASE, SERUM CBC WITH DIFF POCT Test Cbc with Diff Basic Metabolic Panel (NA, K, CL, CO2, GLUCOSE, BUN, CREATININE, CA) Troponin I Procalcitonin Influenza A B RSV COVID NAAT Lab Only COVID Interpretation N-Terminal Pro-Bnp Lipid Panel (97141)(Total Cholesterol, Triglycerides, HDL) Glycosylated Hemoglobin (A1C) Urinalysis [...] care. AdmissionCare documentation entered by: Bob Garcia [facility] [employer]kea, 28th edition, Copyright ? 2023 [facility] [employer] All Rights Reserved. [id number]:59:01-05:00 ED COURSE Diagnosis/Impression as of 11/03/24 0459 Chest pain, unspecified type Procedures: EKG-12 Lead ROUTINE ONCE Date/Time: 10/31/2024 9:32 PM Performed by: Bob Garcia MD Authorized by: Bob Garcia MD ECG interpreted by ED Physician in the absence of a body specialist: yes Previous ECG: Previous ECG: Compared to [...] -- Comment Treatment Team: [facility] [[id number]] Discharge Medications: Current Discharge Medication List STOP [...] signed by: Bob Garcia MD 11/03/24 0459 [facility] [employer] 2024-10-31 21:24:00 AdmissionCare Guideline: Chest Pain, Inpatient [...] observation care. AdmissionCare documentation entered by: [facility] onkea, 28th edition, Copyright ? 2023 [employer] All Rights Reserved. [id number]:59:01-05:00 [facility] [employer] 2024-10-23 23:53:58 Awake, alert oriented X4, respiratory [...] noted upon discharge. [facility]. Connie Rivera RN [facility] 2024-10-23 20:14:29 Patient arrived ambulatory to ED c/o upper abdominal pain that radiates to the left side. Went to PCP today and they told her if it was still hurting come to the ER. Toradol taken today with no relief. States she feels like it is her pancreas. Jen Merrill RN [facility] 2024-10-23 20:12:00 [facility] Emergency Department Note Patient Name: Charity Roca Date of : 1980 44 year old female Treatment Room: IA1/[facility] Primary Care Physician: Riddhi Montes Patient Escorted by: Family [5] Mode of Arrival: Personal means [1] EMS Treatment Prior to ED Arrival: ASSOCIATE PROFESSOR OF ENGINEERING treatment: Medication (comment) ASSOCIATE PROFESSOR OF ENGINEERING treatment comments: Toradol Travel and Exposure Screening: [...] 0.01 - 0.07 10*3/uL COMP. METABOLIC PANEL (43553) - Abnormal NA 136 135 - 145 [...] contrast Cbc with Diff Comp. Metabolic Panel (23972) Lipase Urinalysis Orders Placed This Encounter Medications [...] A) Hiatal Hernia, UTI Disposition/Condition: Home, Pepcid, Bentley/Zofran prn, Cefdinir x 7 days, ER warnings, [...] Electronically signed by: Juanjose Barker MD 10/23/24 9084 [facility] 2024-10-23 10:16:39 Patient is here for a follow up from the hospital for chest pain and back pain. She needs a refill on the Hydroxyzine Pamoate 50 mg. She scored high for depression and anxiety but reports that she is able to use her coping mechanisms, has a place where she feels safe, and a safe person. [facility] 2024-10-13 02:45:03 Pt given printed and [...] in no apparent distress. Jeana Pringle RN [facility] 2024-10-12 22:25:27 Pt arrived ambulatory without assist. Pt c/o chest pain that started around 8pm, and UTI symptoms that started yesterday. Shaneka Atkinson RN [facility] 2024-07-19 01:23:02 Pt given printed and [...] with steady gait, in no apparent distress, [facility] 2024-07-19 00:57:31 ERP at bedside. [facility] 2024-07-19 00:09:25 07/18/24 2356 07/19/24 0000 07/19/24 0008 Orthostatic Vitals BP 132/56 (!) 139/92 (!) 157/112 BP Location Left arm Left arm Right leg Position Lying Sitting Standing Pulse 79 78 78 NYA Merrill RN [facility] 2024-07-18 23:44:12 Patient states "feeling like crap. Every time I stand up everything gets dizzy, black, and I feel like I am going to pass out." [facility] 2024-07-18 22:39:11 Pt brought in by [facility] [...] back. Pt went to [facility] yesterday and they said she was low on potassium (was given 4 tablets of potassium). Pt took home medications today NYA Atkinson RN [facility] 2024-07-04 01:30:39 PT D/C home. GCS15, [...] someone drive her home. NYA Ayala RN [facility] 2024-07-03 19:51:20 Pt arrives ambulatory to ED c/o N/V/D x3 days and says today began having right side abdominal pain. NYA Rios RN [facility] 2024-06-21 02:58:12 Pt given printed and [...] with steady gait, in no apparent distress. [facility] 2024-06-21 01:57:43 Pt arrives ambulatory to ED c/o "spider bite" upper right abdomen area. She says she squeezed it right before coming in and puss came out of it, leaving a black hole. So she came in to be evaled. H BLEACHING RANGE OPERATOR CHIEF Becky Rios RN [facility] 2024-06-15 00:27:31 Pt given printed and [...] in no apparent distress, NYA Delgadillo RN [facility] 2024-06-14 22:55:00 Report given to JAMES Delgadillo NYA Emery RN [facility] 2024-06-14 21:23:27 Patient arrived ambulatory to ED c/o abdominal pain that started Saturday. Patient recently had heart cath placed on . States "haven't been keeping anything down. I can't even keep my medications down." NYA Merrill RN [facility] 2024-06-07 02:39:24 Pt given printed and [...] in no apparent distress, NYA Delgadillo RN [facility] 2024-06-07 00:46:48 Report to Leona RAMIREZ. NYA Montelongo RN [facility] 2024-06-06 22:01:17 Patient arrived ambulatory to ED c/o chest pain that started around 1900 tonight. Patient took 4 baby ASA ASSOCIATE PROFESSOR OF ENGINEERING. Sharp chest pain that radiates to left shoulder. NYA Merrill RN [facility] 2024-05-28 13:02:38 Chief Complaint Patient presents with Shoulder Pain Pt complains of left shoulder pain that has been in pain for last 3 years. Pain is getting worse. No injury. No occupation. Pt has been doing PT for shoulder. She is also taking methocarbamol for pain however it is not helping. [facility] 2024-05-19 13:33:08 Patient given discharge instructions with readback, discussed prescriptions and follow up care. . Steady gait with NAD noted. NYA Davila RN [facility] 2024-05-19 11:42:01 Patient had a fall on Saturday and came into ED to be seen. Had pain meds and scan performed with no significant findings. Patient called her PCP and they told her to go to ER because she could have a concussion or just feel worse. H BLEACHING RANGE OPERATOR CHIEF Rene Cronin RN [facility] 2024-05-18 10:27:22 Chief Complaint Patient presents with Physical Patient is fasting. No other issues to discuss Jennifer Del Castillo MA II [facility] 2024-05-17 22:18:24 Pt given printed and [...] with steady gait, in no apparent distress, H BLEACHING RANGE OPERATOR CHIEF Snati Delgadillo RN [facility] 2024-05-17 20:40:54 Okay to release information to father Piyush Roca per patient NYA Atkinson RN [facility] 2024-05-17 20:18:[address] scan and brought to [facility] with RN and trauma team. Continuous cardiac monitoring and serial vital signs monitored by Santi RAMIREZ. Santi Delgadillo RN [facility] 2024-05-17 19:58:[address] scan with RN and trauma team. Continuous cardiac monitoring and serial vital signs monitored by Santi RAMIREZ. Santi Delgadillo RN [facility] 2024-05-17 18:55:00 Received report from Juliano RAMIREZ [facility] 2024-05-17 18:35:54 Report received from EMS. Trauma protocol initiated. Trauma team members at bedside, primary and secondary survey in progress. Pt placed on continuous cardiac monitoring, pulse oximetry, and serial vital signs. Wellington Dorantes RN [facility] 2024-05-17 18:31:04 Patient arrived by [facility], tripped over a floor tile and hit the occipital area. Unsure of LOC. Patient received 10mg of reglan and morphine 4mg ASSOCIATE PROFESSOR OF ENGINEERING. [facility] Wellington Dorantes RN [facility] 2024-05-07 21:32:31 Patient discharged to home. [...] in no apparent distress. Cameron Posada RN [facility] 2024-05-07 18:45:11 Pt arrived ambulatory with complaints of lower back pain, lower abdominal pain, and dysuria since yesterday. Took Tramadol at 2pm Aline Lou RN [facility] Zit3249-10-38 06:28:23 THANK YOU FOR CHOOSING US FOR YOUR MEDICAL CARE AND IT WAS A PLEASURE TO TAKE CARE OF YOU: PUSHPA RODRIGUEZ, MSN, MACHINE REPAIR PERSON, [facility] DIAGNOSIS: UTI, GASTROENTERITIS PRESCRIPTION: ZOFRAN AND MACROBID PER PRESCRIPTION DETAILS SENT TO [facility]: [place] GIVEN IN ER FOLLOW UP: [...] NO PHYSICIAN MONTSERRAT TERRAZAS MD Work Phone: [address] [address] AIDEN SOLANO MD Work Phone: [address] [place] [phone] ENTER NAME IN NOTES OTHER Future Procedures [...] - Adult August 31, 2023 6:49pm Febru nan 2023 6:45pm Electrocardiogram, Complete August 31, 2023 [...] is unavailable Patient Instructions <tbody> Otitis Externa, Hplq-mj-Ngxd Allergic Rhinitis, Adult, Ea sy-to-Read Ovarian Cyst, Ntcn-zb-Ifpj Abdominal Pain, Adult, Easy- to-Read Renal Mass Nonspecific Chest Pain, Adul t, Ljoc-oy-Cvpp Acetaminophen; Hydrocodone t ablets or capsules Sucralfate tablets Pantoprazole tablets Ciprofloxacin tablets Nonspecific Chest Pain, Adul t, Hqef-io-Skqu Alprazolam tablets Trazodone Tablets Aspirin Tablets Urinary Tract Infection, Milton lt, Ipmc-vx-Efcu Dehydration, Adult, Easy-to- Read Urinary Tract Infection, [place] lt, Nojc-ve-Vhpu [facility] [id number] 20:37:07 Pt given printed and verbal discharge [...] gait, in no apparent distress Renato Doan [facility]egbum7482-47-27 18:50:37 Nurse Report Report given to renato. Chief complaint, assessment findings, infusion verify and orders reviewed. Plan of care discussed. Lola Reynoso RN Lola Reynoso [place] [id number] 17:27:35 Pt arrived ambulatory complains of abdominal pain and points to her left upper abdominal. Pt states that last time she had this type of pain it was pancreatitis. Reports pain started at 1300 and reports pain is 9/10 and hurts whenever she eats. Harriett Mejia [facility] HospitalXyjerw7385-99-17 11:11:13 Chief Complaint Patient presents with Shoulder Pain Left shoulder pain with limited range of motion x 6 months, takes OTC tylenol for the pain as needed but pain is getting worse. 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 Not working currently [facility] Omuvqw2950-30-25 09:19:27 Chief Complaint Patient presents with Hospital F/[facility] follow up with admission on 12/04/2023 for chest pains. She had a stent placed by Dr. Arthur. Jennifer Del Castillo MA II Jennifer Del Castillo MA, II[facility]reaganMarcio [id number] 10:49:31 Chief Complaint Patient presents with Anxiety Follow up on anxiety/depression. She states that it has gotten worse since last visit. She had an appointment with [facility] this morning and it was canceled due to internet outage. Jennifer Del Castillo MA II [facility]illo [facility] 13:21:02 Chief Complaint Patient presents with [facility] told her she needed to go to a different doctor because they could not give her anything else Marbella Oh LVN [facility]2024-04-05 00:41:45 Pt given printed and verbal [...] & in no apparent distress. Becky Rios [facility] HospitalXmvupt0117-19-01 21:25:46 Pt arrived ambulatory but states feeling like she is going to pass out, Pt placed in ED wheelchair. Pt c/o " I have pain in my back on the left side, it mark when I pee, Im nauseous, I feel like Im going to pass out and I have been crapping on myself." Shaneka Lozoyaispie [place] 823673-12-25 22:58:41 Pt discharged with diagnosis of RUQ abd pain and chronic abd pain. Printed and verbal instructions reviewed with and given to pt. Prescriptions given x 2. Pt verbalized understanding of teaching, medications, and recommended follow-up. Denies questions or concerns at this time. Pt ambulatory at discharge. Appears in no apparent distress. No ataxia noted. H BLEACHING RANGE OPERATOR CHIEF Adeline Floyd [place] 823673-12-25 19:46:03 Pt states sharp pain to the RLQ that started today around noon, pt denies any urinary symptoms, vomiting X 2 H BLEACHING RANGE OPERATOR CHIEF Razia Yost [place] [id number] 00:14:00 Awake, alert oriented X4, respiratory even [...] noted upon discharge [facility] Razia Yost [place] 823673-09-02 23:06:10 Received report from vEy RN, assuming care. Brandy Lou [place] 823673-09-02 22:38:[address] scan done. Patient states LQ abdominal pain now 01/14. T Maggie Caceres [place] 823673-09-02 22:00:00 POCT test negative. Patient states RLQ abdominal pain improved briefly with IV Morphine administration, then returned at 03/17. Dr Richards informed, and patient medicated as ordered with Fentanyl 75 mcg slow IVP. [place] [address]-09-02 21:00:00 Medicated as per order with Zofran 4 mg slow IVP and Morphine 4 mg slow IVP for RLQ abdominal pain 03/17. [place] [address]-09-02 20:17:52 Pt arrived ambulatory with complaints of RLQ abd pain since yesterday. Pt reports N/V/D. Last took Tylenol at 3pm. Denies dysuria but reports frequency. Hx: Anxiety, Depression, PTSD, Pancreatitis Aline Lou [place] 823673-08-26 01:30:22 Discharged home ambulatory. Home instructions given. John Ventura [place] 823673-08-25 19:32:44 Pt CO of N/V, left lower back pain, painful urination and diarrhea since yesterday, states she was admitted last week for pancreatitis. Pt already promethazine tablets today with no relief. 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 RL: 460 AF: 72787 Lab Results: Lab Results CBC WITH DIFF [...] POCT PREG TEST DATE COMP. METABOLIC PANEL (40081) NA 139 135 - 145 mmol/L K [...] CONTRAST CBC WITH DIFF COMP. METABOLIC PANEL (66348) LIPASE URINALYSIS POCT TEST Orders Placed This [...] Eval: ED Events Date/Time Event User Comments 08/25/23 2300 Medical Screening Begins BOB GARCIA MD -- [...] signed by: Bob Garcia MD 03/02/23 0122 [facility]arngr2048-87-43 02:22:03 Pt given printed and verbal discharge [...] leaving in no apparent distress, Linda Ayala [facility] HospitalUseswi5243-57-02 22:53:36 Pt arrived ambulatory with complaints of [...] might be from her anxiety. Aline Lou [facility] HospitalKpujak1584-90-09 15:59:15 Problem: Pain Goal: Control of pain [...] Goal: Effective communication Outcome: Adequate for discharge . [facility] Beata Lamar [facility] HospitalKdrcib7263-34-64 00:21:19 Problem: Pain Goal: Control of pain [...] Goal: Effective communication Outcome: Progressing as expected [facility]2023-08-12 16:55:55 Problem: Pain Goal: Control of pain [...] Goal: Effective communication Outcome: Progressing as expected [facility]2023-08-12 03:35:03 Problem: Pain Goal: Control of pain [...] Goal: Effective communication Outcome: Progressing as expected [place] [address]-08-11 19:41:18 Nurse Report Report given to JAMES Gatica. Chief complaint, assessment findings, infusion verify and orders reviewed. Plan of care discussed with both nurses. Stacie Man RN T Stacie Man RNOhioHealth [facility] HospitalQqcecw2704-63-38 13:40:01 CC: patient presents to the ER [...] amb without assistance. Appears in no distress. [facility] HospitalXhmutu7766-88-01 13:23:00Associated Order(s): EKG-12 Lead ROUTINE ONCE Pre-Procedure Diagnose(s): Chest pain, unspecified type Post-Procedure Diagnose(s): Acute pancreatitis, unspecified complication status, unspecified pancreatitis type [facility] Emergency Department Note Patient Name: Charity Roca Date of : 1980 42 year old female Treatment Room: [place] [address] [address] Primary Care Physician: Aiden Solano Patient Escorted by: Self [9] Mode of Arrival: Personal means [1] EMS Treatment Prior to ED Arrival: ASSOCIATE PROFESSOR OF ENGINEERING treatment: None Chief Complaint: Chief Complaint Patient [...] the ACR Incidental Findings Committee;Journal of the [employer] Volume 7, Issue 10, Pages [phone], April 2010). CHEST 1 VW Final Result [...] process is identified in the chest. RL: 2193 END OF REPORT Lab Results: reviewed by [...] 0.01 - 0.07 10*3/uL COMP. METABOLIC PANEL (85674) - Abnormal NA 138 135 - 145 [...] INTERPRETATION CBC WITH DIFF COMP. METABOLIC PANEL (86650) LIPASE Orders Placed This Encounter Medications ibuprofen [...] ED Physician in the absence of a body specialist: yes Previous ECG: Previous ECG: Unavailable Interpretation: [...] re-admission?: No Treatment Team: [facility] [[id number]] Is this patient COVID positive or a patient under investigation (PUI)?: No Electronically signed by: Leeanne Wise NP 02/15/231910 Associated attestation - Bushra Rios DO - 02/16/2023 7:30 AM CDT I was personally available for consultation in the Emergency Department during this encounter and patient evaluation by Leeanne Wise. [facility]
--- NOTE | 2024-12-01 18:30 | RAD REPORT ---
EXAMINATION: ONE VIEW CHEST XR CLINICAL INDICATION: CHEST PAIN TECHNIQUE: Frontal chest projection is submitted. Examination is limited by patient positioning and t echnique. COMPARISON: 11/28/2024 FINDINGS: The lungs are well inflated and clear. The heart is upper limit of normal in size. No displaced fract ures identified. IMPRESSION: No acute intrathoracic abnormalities.
[2024-12-01] MEDS ORDERED: DIPHENHYDRAMINE 50 MG/ML VIAL ONE (18:51)
[2024-12-01] MEDS ORDERED: droPERidol 5 MG/2 ML VIAL ONE (18:51)
[2024-12-01 18:52] LABS: Absolute Basophils 0.2 K/uL (0-0.5); Absolute Eosinophils 0.2 K/uL (0-0.5); Absolute Lymphocytes (CBC) 3.1 K/uL (0.7-4.9); Absolute Monocytes 0.9 K/uL (0.1-1.3); Absolute Neutrophil 7.5 K/uL (1.8-8.0); Basophils % 1.3 % (0-1.3); Eosinophils % 1.9 % (0-4.4); Hematocrit 38.1 % (36.0-45.0); Hemoglobin 12.6 g/dL (12.0-15.0); Lymphocytes % 26.2 % (15.3-44.8); MCH 25.5 pg (27.0-35.0); MCV 77.3 fL (80-100); MPV 7.2 fL (7.6-11.3); Monocytes % 7.6 % (3.3-12.3); Nucleated Red Blood Cells % 0.1 % (0-0); Platelets 367 thou/uL (152-406); RBC Red Blood Cell Count 4.93 M/uL (3.86-4.86); Red Cell Distribution Width 19.2 % (12.1-15.2)
[2024-12-01 19:13] LABS: PT Prothrombin Time 12.2 SECONDS (10-13.0); Protime INR 1.07
[2024-12-01 19:23] LABS: ALT/SGPT 19 U/L (13-56); Albumin 3.1 g/dL (3.4-5.0); Albumin/Globulin Ratio 0.8 (1.1-1.8); Alkaline Phosphatase 82 U/L (45-117); Anion Gap 11.6 mEq/L (5.0-15.0); BUN Blood Urea Nitrogen 10 mg/dL (7-18); Bicarbonate 22 mEq/L (21-32); Bilirubin Total 0.2 mg/dL (0.2-1.0); Globulin 3.9 g/dL (2.3-3.5); Glomerular Filtration Rate 109 ml/min (=/>90); Glucose Level 107 mg/dL (74-106); Magnesium 1.8 mg/dL (1.6-2.4); NT PRO-BNP 25 pg/mL (<125); Potassium 3.6 mEq/L (3.5-5.1); Sodium Level 138 mEq/L (136-145)
--- NOTE | 2024-12-01 19:24 | EDPHYS ---
Physician Documentation [facility] Name: Charity Hanks Age: 44 yrs Sex: Female : 1980 Arrival Date: 12/01/2024 Time: 17:59 Bed 13 Private MD: ED Physician Joe Pena HPI: 12/01 18:27 This 44 yrs old Female presents to ER via EMS with complaints of chest pain. sb4 18:27 Substernal chest pain that began while she was at a . States it radiates to her sb4 left arm. Associated with nausea. She self administered 4 baby aspirin. EMS administered 1 nitro and 4 mg of Zofran. States her nausea is better but her chest pain has persisted. Was admitted here recently for the same symptoms. Troponins were negative and she was discharged. Historical: - Allergies: 18:09 No Known Allergies; jb4 - PMHx: 18:09 Anxiety; depressive disorder; Hypertensive disorder; Myocardial infarction; jb4 Pancreatitis; PTSD; - PSHx: 18:09 cardiac stent; Cholecystectomy; Tonsillectomy; jb4 - Immunization history:: Adult Immunizations up to date. - Infectious Disease History:: Denies. - Social history:: Smoking status: Patient denies any tobacco usage or history of. ROS: 19:30 Constitutional: Negative for fever, chills, and weight loss, sb4 19:30 Cardiovascular: Positive for chest pain, 19:30 All other systems are negative, Exam: 19:31 Constitutional: This is a well developed, well nourished patient who is awake, alert, sb4 and in no acute distress. Head/Face: Normocephalic, atraumatic. Eyes: Extra-ocular motions intact. Periorbital areas with no swelling, redness, or edema. ENT: Mucous membranes moist. Cardiovascular: Regular rate and rhythm with a normal S1 and S2. Respiratory: No increased work of breathing, no retractions or nasal flaring. Abdomen/GI: Soft, non-tender, no distension. Skin: Warm, dry with normal turgor. Normal color with no rashes, no lesions, and no evidence of cellulitis. Vital Signs: 18:29 BP 128 / 92; Pulse 108; Resp 16; Pulse Ox 98% on R/A; jb4 MDM: 18:09 Medical Screening Exam initiated sb4 19:31 The patient was not given aspirin in the Emergency Department. Patient reports taking sb4 aspirin within the past 24 hours. Data reviewed: vital signs, nurses notes, EMS record, lab test result(s), EKG, radiologic studies, and as a result, I will discharge patient. Counseling: I had a detailed discussion with the patient and/or guardian regarding the historical points, exam findings, and any diagnostic results supporting the discharge/admit diagnosis, the presence of at least one elevated blood pressure reading (>120/80) during this emergency department visit, lab results, radiology results, to return to the emergency department if symptoms worsen or persist or if there are any questions or concerns that arise at home, smoking cessation. ED course: Patient reports feeling better after droperidol and Benadryl and would like to leave. Initial EKG and troponin are negative. Also had admission with negative troponins recently. Will discharge safely home at this time. 12/01 18:11 Order name: Basic Metabolic Panel; Complete Time: 19:28 sb4 12/01 18:11 Order name: CBC with Diff sb4 12/01 18:11 Order name: LFT's; Complete Time: 19:28 sb4 12/01 18:11 Order name: Magnesium; Complete Time: 19:28 sb4 12/01 18:11 Order name: NT PRO-BNP; Complete Time: 19:28 sb4 12/01 18:11 Order name: PT-INR; Complete Time: 19:16 sb4 12/01 18:11 Order name: Troponin HS; Complete Time: 19:28 sb4 12/01 18:11 Order name: XRAY Chest (1 view); Complete Time: 18:32 sb4 12/01 18:11 Order name: Cardiac monitoring; Complete Time: 18:31 sb4 12/01 18:11 Order name: EKG - Nurse/Tech; Complete Time: 18:31 sb4 12/01 18:11 Order name: IV Saline Lock; Complete Time: 18:31 sb4 12/01 18:11 Order name: Labs collected and sent; Complete Time: 19:00 sb4 12/01 18:11 Order name: O2 Per Protocol; Complete Time: 18:31 sb4 12/01 18:11 Order name: O2 Sat Monitoring; Complete Time: 18:31 sb4 EC:27 Rate is 108 beats/min. Rhythm is regular, Sinus tachycardia. Right axis deviation sb4 noted. WI interval is normal at 140 msec. QRS interval is normal at 70 msec. QT interval is normal at [address] changes noted. Clinical impression: Abnormal EKG without significant change. No change from previous ECG on November 28, 2024. Administered Medications: 19:00 Drug: Droperidol IVP 2.5 mg IVP once Route: IVP; Site: left antecubital; jb4 19:00 Drug: diphenhydrAMINE IVP 25 mg IVP once Route: IVP; Site: left antecubital; jb4 Disposition: 20:43 Co-signature as Attending Physician, Joe Pena MD I reviewed the patient's care rt provided by the Advanced Practice Provider and agree with the diagnosis and treatment plan. Disposition Summary: 12/01/24 19:23 Discharge Ordered Notes: Location: Home sb4 Problem: new sb4 Symptoms: are resolved sb4 Condition: Stable sb4 Diagnosis - Chest pain, unspecified sb4 Followup: sb4 - With: Neil Arthur MD - When: As needed - Reason: Recheck today's complaints, Re-evaluation by your physician Discharge Instructions: - Discharge Summary Sheet sb4 - Nonspecific Chest Pain, Adult, [id number] sb4 Forms: - Patient Portal Instructions sb4 - Leadership Thank You Letter sb4 Signatures: Dispatcher [employer] Herminio Amaral RN RN jb4 Claudia Harris PA-C PA-C sb4 Joe Pena MD MD rt Corrections: (The following items were deleted from the chart) 18:11 18:11 BASIC METABOLIC PANEL+C.LAB.BRZ ordered. EDMS EDMS 18:11 18:11 CBC+H.LAB.BRZ ordered. EDMS EDMS 18:11 18:11 HEPATIC FUNCTION+C.LAB.BRZ ordered. EDMS EDMS 18:11 18:11 MAGNESIUM+C.LAB.BRZ ordered. EDMS EDMS 18:11 18:11 PROBNP+C.LAB.BRZ ordered. EDMS EDMS 18:11 18:11 PROTIME (+INR)+COAG.LAB.BRZ ordered. EDMS EDMS 18:11 18:11 Troponin High Sensitivity+C.LAB.BRZ ordered. EDMS EDMS 18:11 18:11 Chest Single View+RAD.RAD.BRZ ordered. EDMS EDMS 19:30 18:27 This 44 yrs old Female presents to ER via EMS with unknown complaint. sb4 sb4
--- NOTE | 2024-12-01 19:24 | ER ---
Nurse's Notes [facility] Name: Charity Hanks Age: 44 yrs Sex: Female : 1980 Arrival Date: 12/01/2024 Time: 17:59 Bed 13 Private MD: Diagnosis: Chest pain, unspecified Presentation: 12/01 18:07 Chief complaint: EMS states: Pt reports chest pain that started around 1530, she took jb4 324 aspirin at 1700 before EMS arrived. I gave her 1 sublingual nitro, 4mg of zofran and 500ml of NS. reports no relief and says it feels like an elephant on her chest. Coronavirus screen: At this time, the client does not indicate any symptoms associated with coronavirus-19. Ebola Screen: No symptoms or risks identified at this time. Initial Sepsis Screen: Does the patient meet any 2 criteria? No. Patient's initial sepsis screen is negative. Does the patient have a suspected source of infection? No. Patient's initial sepsis screen is negative. Risk Assessment: Do you want to hurt yourself or someone else?. 18:07 Method Of Arrival: EMS: [facility] jb4 18:07 Acuity: CARLOS 2 jb4 Historical: - Allergies: 18:09 No Known Allergies; jb4 - PMHx: 18:09 Anxiety; depressive disorder; Hypertensive disorder; Myocardial infarction; jb4 Pancreatitis; PTSD; - PSHx: 18:09 cardiac stent; Cholecystectomy; Tonsillectomy; jb4 - Immunization history:: Adult Immunizations up to date. - Infectious Disease History:: Denies. - Social history:: Smoking status: Patient denies any tobacco usage or history of. Screenin:29 [facility] ED Fall Risk Assessment (Adult) History of falling in the last 3 months, jb4 including since admission No falls in past 3 months (0 pts) Confusion or Disorientation No (0 pts) Intoxicated or Sedated No (0 pts) Impaired Gait No (0 pts) Mobility Assist Device Used No (0 pt) Altered Elimination No (0 pt) Score/Fall Risk Level 0 - 2 = Low Risk Oriented to surroundings, Maintained a safe environment. Abuse screen: Denies threats or abuse. Nutritional screening: No deficits noted. Tuberculosis screening: No symptoms or risk factors identified. Assessment: 18:29 General: Appears in no apparent distress. comfortable, Behavior is calm, cooperative, jb4 appropriate for age. Pain: Complains of pain in chest Pain does not radiate. Pain currently is 10 out of 10 on a pain scale. Quality of pain is described as pressure. Neuro: Level of Consciousness is awake, alert, obeys commands, Oriented to person, place, time, situation. Cardiovascular: Patient's skin is warm and dry. Respiratory: Airway is patent Respiratory effort is even, unlabored, Respiratory pattern is regular, symmetrical. Derm: Skin is intact, Skin is pink, warm \T\ dry. 19:10 Reassessment: Patient appears in no apparent distress at this time. Patient and/or jb4 family updated on plan of care and expected duration. Pain level reassessed. Patient is alert, oriented x 3, equal unlabored respirations, skin warm/dry/pink. Vital Signs: 18:29 BP 128 / 92; Pulse 108; Resp 16; Pulse Ox 98% on R/A; jb4 ED Course: 18:07 Patient arrived in ED. ss 18:09 Claudia Harris PA-C is PHCP. sb4 18:09 Joe Pena MD is Attending Physician. sb4 18:09 Triage completed. jb4 18:09 Arm band placed on right wrist. jb4 18:24 XRAY Chest (1 view) In Process Unspecified. EDMS 18:29 Patient has correct armband on for positive identification. Bed in low position. Call jb4 light in reach. Side rails up X 1. Provided Education on: plan of care. 19:10 No provider procedures requiring assistance completed. Pt d/c'ed own IV. jb4 19:23 Neil Arthur MD is Referral Physician. sb4 Administered Medications: 19:00 Drug: Droperidol IVP 2.5 mg IVP once Route: IVP; Site: left antecubital; jb4 19:00 Drug: diphenhydrAMINE IVP 25 mg IVP once Route: IVP; Site: left antecubital; jb4 Medication: 18:29 VIS not applicable for this client. jb4 Outcome: 19:10 Discharged to home ambulatory, jb4 19:10 Condition: stable 19:10 Discharge instructions given to Pt left prior to receiving instructions. 19:23 Discharge ordered by . sb4 19:39 Patient left the ED. mm11 Signatures: Dispatcher [employer] Sanjana Dyson RN RN ss Herminio Sauer RN RN jbClaudia Eagle, VÍCTOR RENEE sb4 rose griffin mm11
[2024-12-01 19:27] LABS: AST/SGOT < 10 U/L (15-37); Bilirubin Direct < 0.2 mg/dL (0-0.2)
[2024-12-01 19:44] VITALS: BP 128/92; O2SAT 98
[2024-12-01 20:54] LABS: Blood Morphology Comment NOT SEEN (NOT SEEN); Platelet Estimate ADEQ; White Blood Cell Scan OK (OK)
--- NOTE | 2024-12-02 11:14 | EKG ---
Test Date: 2024-12-01 Test Time: 18:22:49 Electrotyper Helper: CROW MEASUREMENT RESULTS: Intervals: Rate: 108 DE: 140 QRSD: 70 QT: 322 QTc: 431 Roland: P: 57 DE: 140 QRS: 229 T: 26 INTERPRETIVE STATEMENTS: Sinus tachycardia Right atrial enlargement Right superior axis deviation Inferior infarct, age undetermined Cannot rule out Anterior infarct, age undetermined Abnormal ECG Compared to ECG 11/28/2024 16:31:22 Right superior axis now present Indeterminate axis no longer present Myocardial infarct finding still present Electronically Signed On 12-02-24 11:12:38 CDT by James Patel
== END 2024-12-01 19:39 | disposition home or self-care (01) ==
LOC: ER 17:59
DX: R07.9 Chest pain, unspecified (principal); I10 Essential (primary) hypertension; I25.2 Old myocardial infarction; Z95.818 Presence of other cardiac implants and grafts
CPT/HCPCS: 93005; 85025; 80048; 36415; 83735; 85610; 80076; 84484; 83880; 71045; 96375; 96374; 99284; J1200; J1790

== ENCOUNTER 2025-02-03 20:12 | Inpatient (IN) | payer OTHER ==
--- OUTSIDE RECORDS SUMMARY | 2025-02-03 20:42 | XMS REPORT | Continuity of Care Document ---
Author Name Unknown Address [address] [facility] [address] [place] [address] [facility] Address [address] [facility]. [address] [place] [address] Support Name Relationship Address Phone RACHEL CASH Father Unknown Unavailable PHYSICIAN, NO Primary Care Physician Unknown Unav ailable MD MORA POLLOCK A Emergency Provider [address] [place] [address] JAN COX natural parent [address] [address] MD SHERIDAN MCMANUS Emergency Provider [facility], [place] [address] CHARITY ROCA Guarantor [address] [place] [address] MD RIDDH[place] [address] MD AN IRIZARRY Emergency Provider [facility], [place] [address] MD AIDEN SOLANO A Primary Care Physician [address] [facility] 3 [place] [address] OTHER, ENTER NAME IN NOTES Primary Care Physician Unknown Unavailable MD Arelis Kern Emergency Provider [address] [place] [address] MD SHAN BUSCH Attending Provider [address] [place] [address] PIYUSH JUAREZ natural parent [address] [place] [address] Leyda Villa Mother Unknown Unavailable Rachel Cox Father [address] [address] [place] [address] one else per patient, No Emergency Contact Unknown Unavailable Rachel Cox [address] [place] [address] 1 Personal Relationship Unknown Unavai lable Unavailable Personal Relationship Unknown Unavai lable MD TAVARES MG JR, JR. Emergency Provider [address] [place] [address] MD DIONI TYSON Emergency Provider [id number] [place] [id number] [address] [facility] Attending Provider [address] [place] [address] Unavailable JAN COX parent [address] [place] [address] Rachel Cox [address] [place] [address] PATIENT, NO ONE ELSE PER Personal Relationship Unknown Unavailable Care Team Providers Care Business Support Professional Name Role Phone OTHER, ENTER NAME IN NOTES Primary Care Physicia n Unavailable CHRISTINA PAGE Attending Clinician Unavailable CYNTHIA ROMEO Attending Clinician Unavailable RIDDHI MONTES Attending Clinician Unavailable VAHE DURAND Attending Clinician Unavailable NAY ALMONTE Attending Clinician Unavailable NEO ALBARRAN Attending Clinician BOB Lay Attending Clinician Unavailable BOB GARCIA Attending Clinician Unavailable Josefa VILLANUEVA, Kiran Nino Attending Clinician ARELIS KERN Attending Clinician Unavailab le Doctor Unassigned, Boyden Attending Clinician U navailable ROBERTO RICHARDS Attending Clinician Unavailable ROBERTO RICHARDS Attending Clinician Unavailable CATHY STRICKLAND Attending Clinician Unavailable MD BEHZAD Attending Clinician Unavailab Piper Jackson LVN Attending Clinician [phone] ALEXX KWOK Attending Clinician UnavailTATIANNA Garcia Attending Clinician Unavailable SHERIDAN MCMANUS Attending Clinician UnavailNEIL Edwards Attending Clinician Unavailable BSUHRA RIOS Attending Clinician Unavailab BUSHRA Bustamante Attending Clinician Unavailab Bushra Bustamante DO Attending Clinician [phone] Bob Garcia MD Attending Clinician [phone] KAUR SANDRA Attending Clinician Unavailab KAUR Kessler Attending Clinician Unavailab Zay Shipman MD Attending Clinician +[phone] Ludin Lloyd MD, Kaur Attending Clinician [phone] Elliott Kwok MD Attending Clinician [phone] Dane Jurado MD Attending Clinician [phone] FLORINDA REYES Attending Clinician Unavailable JUANJOSE BARKER Attending Clinician Unavailable JUANJOSE BARKER Attending Clinician Unavailable Juanjose Barker MD Attending Clinician [phone] SELENA DEL TORO Attending Clinician Unavailable GISELLE OSORIO Attending Clinician Unavailable CONRADO SMITH Attending Clinician Unavailable JÚNIOR FARRELL Attending Clinician Unavailable Saleem EDWARD Attending Clinician Unavailable Saleem EDWARD Attending Clinician Unavailable Saleem Perez Attending Clinician [phone] RADIOLOGY, DEPT Attending Clinician Unavailable SANDY GARCIA Attending Clinician Unavailable SANDY GARCIA Attending Clinician Unavailable Sandy Walker Attending Clinician + [phone] RAFAL WRIGHT Attending Clinician Unavailable Rafal Wright PA-C Attending Clinician + [phone] Attending Clinician Unavailable Tammy Roy MD Attending Clinician + FARTUN GILLESPIE Attending Clinician Unavailable TAVARES MG JR Attending Clinician Ari Rojo NP, Jacque Attending Clinician [phone] COSMO Attending Clinician Unavailable SHAN BUSCH Attending Clinician Unavailable RIDDHI MYLES Attending Clinician UnavailAN Garcia Attending Clinician Unavailable KLAUDIA NARVAEZ Attending Clinician Unavailable Klaudia Narvaez DO Attending Clinician + APPLE PADGETT S Attending Clinician Unavailable Apple Elam S Attending Clinician [phone] ZAY MONTERO Attending Clinician Unavailable Leeanne Wise NP Attending Clinician [phone] Zay Montero MD Attending Clinician +[phone] FELTON Attending Clinician Unavailable MELIDA LONGORIA Attending Clinician Unavailable Melida Longoria MD Attending Clinician +[phone] WIL MCQUEEN Attending Clinician Unavailable Wil Joseph Attending Clinician +[phone] APPLE WANG Attending Clinician Unavaila angel Wang ROTOR COIL TAPER, Apple Isaac Attending Clinician [phone] Doctor Unassigned, Boyden Attending Clinician U navailable CEM CHOI Attending Clinician Unavailable Cem Choi MD Attending Clinician [phone] Shelley Rosas RN Attending Clinician [phone] Mo ROTOR COIL TAPERBal Whittington Attending Clinician +[phone] BAL HASSAN Attending Clinician Unavailable Tremaine Jon Attending Clinician [phone] TREMAINE BECERRA Attending Clinician Unavailable LEEANNE WISE Attending Clinician Unavailable MORA POLLOCK Attending Clinician Unavailable Best Rodríguez Attending Clinician [phone] BEST TAYLOR Attending Clinician Unavailable Marbella Rizo RN Attending Clinician Unavailab Abdias Vuong Attending Clinician +[phone] ABDIAS ROBERTSON Attending Clinician Unavailable Kamryn Sheppard [...] Clinician Unavailable Elliott Kwok MD Admitting Clinician JUANJOSE BARKER Admitting Clinician Unavailable SELENA DEL TORO Admitting Clinician Unavailable Saleem EDWARD Admitting Clinician Unavailable SANDY GARCIA Admitting Clinician Unavailable RAFAL WRIGHT Admitting Clinician Unavailable BOB GARCIA Admitting Clinician Unavailable ROBERTO RICHARDS Admitting Clinician Unavailable SHAN BUSCH Admitting Clinician Unavailable RIDDHI MYLES Admitting Clinician UnaKLAUDIA Suárez Admitting Clinician Unavailable ZAY MONTERO Admitting Clinician Unavailable Zay Montero MD Admitting Clinician [phone] FELTON Admitting Clinician Unavailable MELIDA LONGORIA Admitting Clinician Unavailable WIL MCQUEEN Admitting Clinician Unavailable APPLE WANG Admitting Clinician UnavailCEM Womack Admitting Clinician Unavailable TREMAINE BECERRA Admitting Clinician Unavailable LEEANNE WISE Admitting Clinician Unavailable Saleem EDWARD Admitting Clinician Unavailable BEST TAYLOR Admitting Clinician Unavailable ABDIAS ROBERTSON Admitting Clinician Unavailable Payers Payer Name Policy Type Policy Number Effective Date Expirati on Date Source [place] [address] [facility] 94 [id number] 2025 00:00:00 RAMSES Caro/ KELLEE BRITTON [id number] 2023 00:00:00 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 7- 00:00: 00 Kellee Parrisha lee Coronary artery disease involving [place] coronary artery of [place] heart with angina pectoris Coronary artery disease involving [place] coronary artery of [place] heart with angina pectoris Disease Active 11-01 [...] Disease Active 12-12 00:00: 00 Kellee Parrisha lee MICAH (generaliz ed anxiety disorder) MICAH (generaliz ed anxiety disorder) Disease Active 12-02 00:00: 00 Kellee Parrisha lee Severe episode of recurrent major depressive disorder, 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, 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) Disease Active 12-02 00:00: 00 Kellee Parrisha lee PTSD (post-trau matic stress disorder) PTSD (post-trau matic stress disorder) Disease Active 12-02 00:00: 00 Kellee Parrisha lee Elevated brain natriureti c peptide (BNP) level [...] 2020-07 0- 00:00: 00 [facility] Snores Snores Disease Active 2020-07 0- 00:00: 00 [facility] Morbid obesity with body mass index of 40.0-49.9 Morbid obesity with body mass index of 40.0-49.9 Disease Active 2020-07 0- 00:00: 00 [facility] No known active problems No known active problems Disease [facility] Bilateral flank pain Problem [facility] Chest wall pain [facility] Hypokalemi a Problem [facility] Nausea [facility] Hematur[facility]ic [facility] Abdominal pain Problem [facility] Acute coronary syndrome without high troponin Problem [facility] Adrenal mass Problem [facility] Adrenal nodule Problem [facility] Encounter for counseling regarding advance directives Problem [facility] Allergic rhinitis Problem [facility] Angina pectoris Problem [facility] Anxiety and depression Problem [facility] Chest pain Problem [facility] Gastroente ritis Problem [facility] Malaise Problem [facility] Otitis externa of left ear Problem [facility] Cyst of ovary Problem [facility] Post traumatic stress disorder (PTSD) Problem [facility] Tobacco abuse Problem [facility] Urinary tract infection Problem [facility] Allergies, Adverse Reactions, Alerts Allergy Name Allergy Type Status Severity Reaction(s) Onset Date Inactive Date Treating Clinician Comments Source NO KNOWN ALLERGIE S Drug Class Active [facility] Social History Social Habit Start Date Stop Date Quantity Comments Source Gender identity [facility] ASSERTION Possible [facility] History of Occupation [employer] Sexual orientation Saleem Buckley - External Alcoholic beverage intake 2025-01-07 00:00:00 2025-01-07 00:00:00 Current drinker of alcohol (finding) Kellee Buckley - External History of tobacco use 2024-11-12 00:00:00 Passive smoker [facility] History of Social function 2023-10-28 00:00:00 2023-10-28 00:00:00 Kellee Buckley - External Alcohol Comment 2023-10-28 00:00:00 2023-10-28 00:00:00 rarely Kellee Buckley - Samson Cigarettes smoked current (pack per day) - [...] packs per day [facility] Exposure to SARS-CoV-2 (event) 2021-12-30 00:00:00 2022-01-09 16:34:00 Unable to assess [facility] Education 2021-04-07 00:00:00 2021-04-07 00:00:00 13 [facility] Sex assigned at 1980 00:00:00 1980 00:00:00 Kellee Davies Smoking Status Start Date Stop Date Source Ex-smoker 2024-11-26 00:00:00 2024-11-26 00:00:00 [facility] Sm[facility] tobacco daily 2023-10-28 00:00:00 Kellee Leiva External Unknown [facility] Medications Ordered Medication Name Filled Medication Name Start Date Stop Date Current Medication? Ordering Clinician Indication Dosage Frequency Signature (SIG) Comments Components Source Sertraline HCl 200 MG oral Capsule 01-07 15:07: 38 Yes 1{capsu le} QD Take 1 capsule by mouth daily. Kellee pinedo Quetiapine Fumarate 100 MG oral Tablet 01-07 00:00: 00 Yes [id number] 100mg QD Take 1 tablet (100 mg total) by mouth nightly. Kellee pinedo Quetiapine Fumarate 50 MG oral Tablet 12-18 00:00: 00 01-07 00:00 :00 No 50mg Take 1 tablet (50 mg total) by mouth at bedtime. Kellee pinedo Trazodone HCl 100 MG oral Tablet 12-16 00:00: 00 01-07 00:00 :00 No [id number] 100mg QD Take 1 tablet (100 mg total) by mouth nightly. Kellee pinedo Zolpidem Tartrate (Ambien) 10 MG oral Tablet 12-16 00:00: 00 01-07 00:00 :00 No [id number] 10mg QD Take 1 tablet (10 mg total) by mouth nightly as needed for sleep. Kellee pinedo ketorolac (TORADOL) injection 15 mg 12-14 22:15: 00 12-14 21:34 :00 No 15mg 15 mg, Slow IV Push, ONCE, 1 dose, On Sat12/14/24 at 1715, Routine [facility] iopamidol (ISOVUE 370-500 mL) injection 85 mL 12-14 21:30: 00 12-14 21:30 :00 No [id number] 85mL 85 mL, Intravenou s, ONCE, 1 dose, On Sat12/14/24 at 1630, Routine [facility] acetaminoph en (OFIRMEV) IV piggyback 1,000 mg 12-14 19:45: 00 12-14 19:22 :00 No 1000mg 1,000 mg, IV Piggyback, at 400 mL/hr Administer over 15 Minutes, ONCE, 1 dose, On Sat12/14/24 at 1445, Routine, Is the patient strict NPO and unable to tolerate oral medication s? No [facility] methocarbam oL (ROBAXIN) injection 1,000 mg 12-14 19:45: 00 12-14 19:11 :00 No 1000mg 1,000 mg, Slow IV Push, Administer over 3-5 Minutes, ONCE, 1 dose, On Sat12/14/24 at 1445, Routine [facility] ondansetron (ZOFRAN (PF)) injection 4 mg 12-14 19:00: 00 12-14 19:10 :00 No 4mg 4 mg, Slow IV Push, ONCE, 1 dose, On Sat12/14/24 at 1400, Administer over 2-5 Minutes, 2 mL [facility] Meloxicam (Meloxicam 15 Mg) 15 Mg TAB Meloxicam (Meloxicam 15 Mg) 15 Mg TAB 12-10 21:17: 00 Yes 1 [facility] Tizanidine Hcl (Zanaflex 4 Mg*) 4 Mg TAB Tizanidine Hcl (Zanaflex 4 Mg*) 4 Mg TAB 12-10 21:17: 00 Yes 8 [facility] acetaminoph en (TYLENOL) tablet 975 mg 12-09 03:15: 00 12-09 02:28 :00 No 975mg 975 mg, Oral, ONCE, 1 dose, On Sat12/08/24 at 2215, ROSELYN [facility] ondansetron (ZOFRAN (PF)) injection 4 mg 12-09 03:00: 00 12-09 01:51 :00 No 4mg 4 mg, Slow IV Push, ONCE, 1 dose, On Sat12/08/24 at 2200, 2 mL [facility] hydrOXYzine HCl 10 MG oral Tablet 12-03 00:00: 00 01-07 00:00 :00 No 10mg QD Take 1 tablet (10 mg total) by mouth daily. Kellee pinedo Zolpidem Tartrate (Ambien) 5 MG oral Tablet 12-02 00:00: 00 12-16 00:00 :00 No [id number] 5mg QD Take 1 tablet (5 mg total) by mouth nightly as needed for sleep. Kellee pinedo HYDROcodone -Acetaminop hen 10-325 MG oral Tablet 11-29 00:00: 00 01-07 00:00 :00 No Kellee pinedo rosuvastati n (CRESTOR) tablet 40 mg 11-28 [...] at 1200, Until Discontinu ed, Routine [facility] lisinopriL (PRINIVIL,Z ESTRIL) tablet 40 mg lisinopriL [...] Sat11/27/24 at 0900, Until Discontinu ed, Routine, receiving team member approving Restricted medication : ALEXX [...] Until Discontinu ed, Routine [facility] hydrOXYzine (ATARAX) tablet 50 mg 11-27 04:35: [...] at 2200, Until Sat11/27/24 at 1339, Routine [facility] ondansetron (ZOFRAN (PF)) [...] Sat11/27/24 at 1219, Routine, Pain (scale 7-10) [facility] HYDROcodone -acetaminop hen (NORCO 5) tablet 1 tablet HYDROcodone -acetaminop hen (NORCO 5) tablet 1 tablet 11-27 02:49: 09 11-27 17:19 :29 Yes 1{tbl} 1 tablet, Oral, Q6HPRN, Starting on Sat11/26/24 at 2149, Until Sat11/27/24 at 1219, Routine, Pain (scale 4-6) [facility] acetaminoph en (TYLENOL) tablet 650 mg 11-27 02:49: 07 11-27 18:39 :12 No 650mg 650 mg, Oral, Q6HPRN, Starting on Sat11/26/24 at 2149, Until Sat11/27/24 at 1339, Routine, Pain (scale 1-3) [facility] HYDROcodone -acetaminop hen (NORCO) 10-325 mg tablet 1 tablet 11-27 02:30: 00 11-27 02:47 :00 No 1{tbl} 1 tablet, Oral, ONCE NOW, 1 dose, On Sat11/26/24 at 2130, Routine [facility] nitroglycer in (NITROL) 2 % ointment 1 Inch nitroglycer in (NITROL) 2 % ointment 1 Inch 11-27 02:15: 00 11-27 04:13 :00 Yes 1[in_us ] 1 Inch, Transderma l (Apply To Skin), ONCE NOW, 1 dose, On Sat11/26/24 at 2115, Routine [facility] haloperidoL (HALDOL) tablet 2 mg 11-27 01:30: 00 11-27 18:39 :12 No 2mg 2 mg, Oral, QHS, First dose on Sat11/26/24 at 2030, Until Discontinu ed, Routine [facility] ondansetron (ZOFRAN (PF)) injection 4 mg 11-27 01:00: 00 11-27 00:06 :00 No 4mg 4 mg, Slow IV Push, ONCE, 1 dose, On Sat11/26/24 at 2000, 2 mL [facility] morpHINE (4 mg/mL) injection 4 mg 11-27 01:00: 00 11-27 00:07 :00 No 4mg 4 mg, Slow IV Push, ONCE, 1 dose, On [place]per[place] 5/22/25 at 2000, STAT [facility] NaCl 0.9% (NS) bolus infusion 500 mL 11-27 00:15: 00 11-27 01:22 :00 No 500mL at 999 mL/hr, 500 mL, IV Infusion, ONCE, 1 dose, On [place]per[place] 11/26/24 at 1915, STAT [facility] Methocarbam ol 750 MG oral Tablet 11-21 00:00: 00 Yes [id number] 750mg QD Take 1 tablet (750 mg total) by mouth daily. Kellee pinedo Aspirin (Aspirin Low Dose) 81 MG oral Tablet Delayed Response 11-16 00:00: 00 Yes [id number] 81mg QD TAKE 1 TABLET BY MOUTH EVERY DAY Kellee pinedo ibuprofen (IBU) tablet 600 mg 11-15 02:30: 00 11-15 02:21 :00 No 600mg 600 mg, Oral, ONCE, 1 dose, On 11/14/24 at 2130, ROSELYN [facility] Ciprofloxac in HCl (Cipro) 500 MG oral Tablet 11-15 00:00: 00 11-23 04:59 :00 Yes [id number] 500mg Q.5D Take 1 tablet (500 mg total) by mouth 2 times daily for 7 days. Kellee pinedo KCL (KLOR-CON M20) tablet 40 mEq 11-11 06:15: 00 11-11 05:28 :00 No 40meq 40 mEq, Oral, ONCE, 1 dose, On Sat11/11/24 at 0115, Routine [facility] iopamidol (ISOVUE 370-500 mL) injection 80 mL 11-11 05:00: 00 11-11 05:00 :00 No [id number] 80mL 80 mL, Intravenou s, ONCE, 1 [...] ONCE, 1 dose, On Sat11/10/24 at 2100, [facility] Haloperidol 2 MG oral Tablet 11-06 00:00: 00 Yes 2mg Take 1 tablet (2 mg total) by mouth at bedtime. Kellee pinedo Haloperidol 2 MG oral Tablet 11-06 00:00: 00 01-07 00:00 :00 No 1{tbl} Take 1 tablet (2 mg total) by mouth at bedtime. Kellee pinedo hydrOXYzine HCl 10 MG oral Tablet 11-06 00:00: 00 12-02 00:00 :00 No 10mg QD Take 1 tablet (10 mg total) by mouth daily. Kellee pinedo Benztropine Mesylate 0.5 MG oral Tablet 11-05 00:00: 00 Yes .5mg Take 1 tablet (0.5 mg total) by mouth at bedtime. Kellee pinedo Lisinopril 40 MG oral Tablet 11-05 00:00: 00 Yes 40mg QD Take 1 tablet (40 mg total) by mouth daily. Kellee pinedo Benztropine Mesylate 0.5 MG oral Tablet 11-05 00:00: 00 01-07 00:00 :00 No 1{tbl} Take 1 tablet (0.5 mg total) by mouth at bedtime. Kellee pinedo Lidocaine (LIDOCARE) 4 % patch 1 Patch Lidocaine (LIDOCARE) 4 % patch 1 Patch 11-04 17:45: 00 11-04 20:24 :12 No 1{patch } 1 Patch, Topical, Administer over 12 Hours, ONCE, 1 dose, On Sat11/04/24 at 1245, Routine [facility] magnesium sulfate in water 4 gram/50 mL (8 %) IV Piggyback 4 g magnesium sulfate in water 4 gram/50 mL (8 %) IV Piggyback 4 g 11-04 16:00: 00 11-04 19:04 :00 No 4g 4 g, IV Piggyback, at 25 [...] by mouth at bedtime. [facility] Rosuvastati n Calcium 40 MG oral Tablet 11-04 00:00: 00 Yes 40mg Take 1 tablet (40 mg total) by mouth at bedtime. Kellee pinedo Metoprolol Tartrate (LOPRESSOR) 25 MG oral Tablet 11-04 00:00: 00 01-07 00:00 :00 No TAKE 1/2 TABLET BY MOUTH IN THE MORNING AND 1/2 TABLET IN THE EVENING Kellee Buckley - Shobha pinedo aminophyllguerrero ne 50 mg in NaCl 0.9% (NS) [...] Routine, CV Intraproce dure [facility] lidocaine 1% (PF) (XYLOCAINE) injection 11-03 18:13: 12 11-03 20:03 :14 No ONCE INTRA PROCEDURE, Starting on Sat11/03/24 at 1313, Until Sat11/03/24 at 1503, Routine, CV Intraproce dure [facility] midazolam (VERSED) 1 mg/mL injection 11-03 18:12: 08 11-03 20:03 :14 No ONCE INTRA PROCEDURE, Starting on Sat11/03/24 at 1312, Until Sat11/03/24 at 1503, Routine, CV Intraproce dure [facility] FENTanyl (PF) (SUBLIMAZE) injection 11-03 18:11: 52 11-03 20:03 :14 No ONCE INTRA PROCEDURE, Starting on Sat11/03/24 at 1311, Until Sat11/03/24 at 1503, Routine, CV Intraproce dure [facility] metoprolol tartrate (LOPRESSOR) tablet 12.5 mg metoprolol tartrate (LOPRESSOR) tablet 12.5 mg 11-03 13:00: 00 11-04 22:34 :20 No 12.5mg 12.5 mg, Oral, BID, First dose on Sat11/03/24 at 0800, Until Discontinu ed, Routine [facility] famotidine (PEPCID AC) tablet 20 mg famotidine (PEPCID AC) tablet 20 mg 11-02 14:00: 00 11-04 20:24 :12 No 20mg 20 mg, Oral, DAILY, First dose (after last modificati on) on Sat11/02/24 at 0900, Until Discontinu ed, Routine [facility] rosuvastati n (CRESTOR) tablet 40 mg rosuvastati n (CRESTOR) tablet 40 mg 11-02 02:00: 00 11-04 22:34 :20 No 40mg 40 mg, Oral, QHS, First dose (after last modificati on) on Sat11/01/24 at 2100, Until Discontinu ed, Routine [facility] haloperidoL (HALDOL) tablet 2 mg haloperidoL (HALDOL) tablet 2 mg 11-02 02:00: 00 11-04 20:24 :11 No 2mg 2 mg, Oral, QHS, First dose on Sat11/01/24 at 2100, Until Discontinu ed, Routine [facility] morpHINE injection 2 mg morpHINE injection 2 mg 11-02 00:15: 06 11-04 16:59 :14 No 2mg 2 mg, Slow IV Push, Q4HPRN, Starting on Sat11/01/24 at 1915, Until Sat11/04/24 at 1159, Routine, Chest pain, Pain (scale 7-10) [facility] HYDROcodone -acetaminop hen (NORCO 5) tablet 1 tablet HYDROcodone -acetaminop hen (NORCO 5) tablet 1 tablet 11-02 00:14: 58 11-04 16:59 :14 No 1{tbl} 1 tablet, Oral, Q6HPRN, Starting on Sat11/01/24 at 1914, Until Sat11/04/24 at 1159, Routine, Pain (scale 4-6) [facility] morpHINE injection 4 mg morpHINE injection 4 mg 11-01 23:25: 45 11-01 23:34 :04 No 4mg 4 mg, Slow IV Push, Q4HPRN, Starting on Sat11/01/24 at 1825, Until Sat11/01/24 at 1834, Routine, Chest pain [facility] acetaminoph en (TYLENOL) tablet 650 mg 11-01 23:14: 29 11-04 20:24 :12 No 650mg [facility] morpHINE (4 mg/mL) injection 4 mg morpHINE (4 mg/mL) injection 4 mg 11-01 17:39: 53 11-01 23:25 :45 No 4mg 4 mg, Slow IV Push, Q4HPRN, Starting on Sat11/01/24 at 1239, Until Sat11/01/24 at 1825, Routine, Chest pain [facility] nitroglycer in (NITROSTAT) sublingual tablet 0.4 mg nitroglycer in (NITROSTAT) sublingual tablet 0.4 mg 11-01 17:35: 41 11-04 20:24 :12 No .4mg 0.4 mg, Sublingual , Q5MIN PRN, Starting on Sat11/01/24 at 1235, Until Sat11/04/24 at 1524, Routine, Chest pain [facility] heparin 25,000 Units/250 mL (Premixed Bag) in 0.45 % NS heparin 25,000 Units/250 mL (Premixed Bag) in 0.45 % NS 11-01 17:30: 00 11-03 21:07 :34 No 0U/h 0-2,750 Units/hr (0-27.5 mL/hr), IV Infusion, [...] ant therapy. Range, Dosing and Testing: FOR [place], [facility], AND [facility] ONLY - aPTT < 35: Bolus 5000 [...] once therapeuti c levels are reached. FOR [facility] ONLY - aPTT < 40: Bolus 5000 [...] (PORCINE) 1,000 UNIT/ML BOLUS ACS ORDER SET [id number] 4-27 17:30: 00 11-01 19:27 :00 No 4000U 4,000 Units, IV Push, ONCE, 1 dose, On Sat11/01/24 at 1230, ROSELYN [facility] heparin (1,000 unit/mL, 10 mL vial) for Rebolusing [id number] [id number] 4-27 17:27: 37 11-04 20:24 :12 No 3000U FOR REBOLUSING , Starting on Sat11/01/24 at 1227, Until Sat11/04/24 at 1524, Routine, Dosing based on aPTT testing parameters (refer to continuous heparin drip order). [facility] lisinopriL (PRINIVIL,Z ESTRIL) tablet 40 mg lisinopriL (PRINIVIL,Z ESTRIL) tablet 40 mg 11-01 14:00: 00 11-04 22:34 :20 No 40mg 40 mg, Oral, DAILY, First dose on Sat11/01/24 at 0900, Until Discontinu ed, Routine [facility] isosorbide mononitrate (IMDUR) 24 hr tablet 60 mg isosorbide mononitrate (IMDUR) 24 hr tablet 60 mg 11-01 14:00: 00 11-04 20:24 :11 No 60mg 60 mg, Oral, DAILY, First dose on Sat11/01/24 at 0900, Until Discontinu ed, Routine [facility] aspirin EC tablet 81 mg aspirin EC tablet 81 mg 11-01 14:00: 00 11-04 20:24 :11 No 81mg 81 mg, Oral, DAILY, First dose on Sat11/01/24 at 0900, Until Discontinu ed, Routine [facility] clopidogreL (PLAVIX) 75 mg tablet 75 mg clopidogreL (PLAVIX) 75 mg tablet 75 mg 11-01 14:00: 00 11-04 20:24 :11 No 75mg 75 mg, Oral, DAILY, First dose on Sat11/01/24 at 0900, Until Discontinu ed, Routine [facility] enoxaparin (LOVENOX) injection 40 mg enoxaparin (LOVENOX) injection 40 mg 11-01 14:00: 00 11-01 17:27 :16 No 40mg 40 mg, Subcutaneo us, DAILY, First dose on Sat11/01/24 at 0900, Until Discontinu ed, Routine [facility] perflutren protein-A microsphr (OPTISON) injection 3 mL 11-01 13:45: 00 11-01 13:45 :00 No [id number] 3mL 3 mL, IV Push, ONCE, 1 dose, On Sat11/01/24 at 0845, Routine [facility] famotidine (PEPCID AC) tablet 20 mg famotidine (PEPCID AC) tablet 20 mg 11-01 13:00: 00 11-02 00:40 :46 No 20mg 20 mg, Oral, BID, First dose on Sat11/01/24 at 0800, Until Discontinu ed, Routine [facility] morphine (2 mg/mL) injection 2 mg morphine (2 mg/mL) injection 2 mg 11-01 10:00: 00 11-01 09:28 :00 No 2mg 2 mg, Slow IV Push, ONCE, 1 dose, On Sat11/01/24 at 0500, Routine [facility] NaCl 0.9% (NS) IV infusion 1,000 mL 11-01 09:30: 00 11-02 16:23 :00 No 1000mL at 75 mL/hr, IV Infusion, ONCE, 1 dose, On Sat11/01/24 at 0430, Routine [facility] ALPRAZolam (XANAX) tablet 1 mg [id number] 4-27 06:46: 25 11-01 23:35 :16 No 1mg 1 mg, Oral, BIDPRN, Starting on 11/01/24 at 0146, Until 11/01/24 at 1835, Routine, Anxiety [facility] methocarbam oL (ROBAXIN) tablet 500 mg methocarbam oL (ROBAXIN) tablet 500 mg 11-01 06:45: 47 11-04 20:24 :11 No 500mg 500 mg, Oral, Q6HPRN, Starting on 11/01/24 at 0145, Until 11/04/24 at 1524, Routine, Muscle Spasms [facility] ketorolac (TORADOL) injection 15 mg ketorolac (TORADOL) injection 15 mg 11-01 04:50: 40 11-01 23:34 :04 No 15mg 15 mg, Slow IV Push, Q6HPRN, Starting on 10/31/24 at 2350, Until 11/01/24 at 1834, Routine, Pain (scale 7-10) [facility] ondansetron (ZOFRAN (PF)) injection 4 mg ondansetron (ZOFRAN (PF)) injection 4 mg 11-01 04:50: 11 11-04 20:24 :11 No 4mg 4 mg, Slow IV Push, Q6HPRN, Starting on 10/31/24 at 2350, Until 11/04/24 at 1524, Administer over 2-5 Minutes, 2 mL [facility] morpHINE (4 mg/mL) injection 4 mg 11-01 04:15: 00 11-01 04:06 :00 No 4mg 4 mg, Slow IV Push, ONCE, 1 dose, On 10/31/24 at 2315, STAT [facility] maalox/diph enhydrAMINE :lidocaine2 %viscous 1:1:1: suspension (COMPOUNDED ) 11-01 04:15: 00 11-01 04:06 :00 No 15mL 15 mL, Oral, ONCE, 1 dose, On 10/31/24 at 2315, Routine [facility] morpHINE (4 mg/mL) injection 4 mg 11-01 03:15: 00 11-01 03:10 :00 No 4mg 4 mg, Slow IV Push, ONCE, 1 dose, On 10/31/24 at 2215, STAT [facility] ondansetron (ZOFRAN (PF)) [...] 10-24 04:30: 00 10-24 04:30 :00 No [id number] 100mL 100 mL, Intravenou s, ONCE, 1 dose, On Sat10/23/24 at 2330, Routine [facility] cefTRIAXone (ROCEPHIN) 1,000 mg in water for [...] 1 dose, On Sat10/23/24 at 2029, STAT [facility] ondansetron (ZOFRAN (PF)) injection 4 mg 10-24 01:30: 00 10-24 02:26 :00 No 4mg 4 mg, Slow IV Push, ONCE, 1 dose, On Sat10/23/24 at 2029, Administer over 2-5 Minutes, 2 mL [facility] morpHINE (4 mg/mL) injection 6 mg 10-24 01:30: 00 10-24 02:22 :00 No 6mg 6 mg, Slow IV Push, ONCE, 1 dose, On Sat10/23/24 at 2029, STAT [facility] Cefdinir 300 MG oral Capsule 10-24 00:00: 00 01-07 00:00 :00 No TAKE 1 CAPSULE BY MOUTH IN THE MORNING AND 1 CAPSULE IN THE EVENING. DO ALL THIS FOR 8 DAYS. Kellee pinedo HYDROcodone -Acetaminop hen (NORCO) 5-325 MG oral Tablet 10-24 00:00: 00 01-07 00:00 :00 No TAKE 1 TABLET BY MOUTH EVERY 6 HOURS NEEDED FOR ACUTE PAIN (SCALE 7-10) FOR UP TO 7 DAYS Kellee pinedo hydrOXYzine Pamoate 50 MG oral Capsule 10-23 10:46: 10 10-23 00:00 :00 No [id number] 50mg Q.5D Take 1 capsule (50 mg total) by mouth as needed in the morning and 1 capsule (50 mg total) as needed in the evening for anxiety. Kellee pinedo Sertraline HCl 200 MG oral Capsule 10-23 10:16: 17 Yes 1{capsu le} QD Take 1 capsule by mouth daily. Kellee pinedo hydrOXYzine Pamoate 50 MG oral Capsule 10-23 00:00: 00 Yes [id number] 50mg Q.5D Take 1 capsule (50 mg total) by mouth as needed in the morning and 1 capsule (50 mg total) as needed in the evening for anxiety. Kellee pinedo Ascorbic Acid (Vitamin C) 250 MG oral Tablet 10-23 00:00: 00 Yes [id number] 250mg QD Take 1 tablet (250 mg total) by mouth daily. Kellee pinedo Famotidine (PEPCID) 20 MG oral tablet 10-23 00:00: 00 01-07 00:00 :00 No 20mg Q.5D Take 1 tablet (20 mg total) by mouth 2 times daily. Kellee pinedo Eszopiclone 2 MG oral Tablet 10-23 00:00: 00 12-02 00:00 :00 No [id number] 2mg QD Take 1 tablet (2 mg total) by mouth nightly Take immediatel y before bedtime. Kellee pinedo cefdinir 300 mg capsule 10-23 00:00: 00 11-04 00:00 :00 No [id number] 300mg Take 1 capsule by mouth in the morning and 1 capsule in the evening. Do all this for 8 days. [facility] ondansetron 4 mg disintegrat ing tablet 10-23 00:00: 00 11-01 00:00 :00 No [id number] 4mg Take 1 tablet by mouth every 12 (twelve) hours as needed for Nausea and Vomiting (N/V). [facility] HYDROcodone -acetaminop hen 5-325 mg tablet 10-23 00:00: 00 10-31 04:59 :00 No [id number] 1{tbl} Take 1 tablet by mouth every 6 (six) hours as needed for Pain (scale 7-10) for up to 7 days. Indication s: acute pain [facility] Methocarbam ol 750 MG oral Tablet 10-20 00:00: 00 Yes [id number] 750mg QD Take 1 tablet (750 mg total) by mouth daily. Kellee pinedo Belsomra 20 MG oral Tablet 10-20 00:00: 00 10-23 00:00 :00 No [id number] 1{tbl} QD TAKE 1 TABLET BY MOUTH EVERY DAY AT NIGHT Kellee Marcio pinedo Ketorolac Tromethamin e 10 MG oral Tablet 10-15 00:00: 00 01-07 00:00 :00 No Kellee pinedo Rosuvastati n Calcium (Crestor 20 Mg *) 20 Mg TAB Rosuvastati n Calcium (Crestor 20 Mg *) 20 Mg TAB 10-14 18:49: 00 Yes 20 [facility] Clopidogrel Bisulfate (Plavix 75 Mg *) 75 Mg TAB Clopidogrel Bisulfate (Plavix 75 Mg *) 75 Mg TAB 10-14 02:00: 00 Yes 75 [facility] Haloperidol Haloperidol 10-14 02:00: 00 Yes 1 [facility] Isosorbide Mononitrate (Imdur *) 60 Mg Tablet ER 24HR Isosorbide Mononitrate (Imdur *) 60 Mg Tablet ER 24HR 10-14 02:00: 00 Yes 60 [facility] Methocarbam ol Methocarbam ol 10-14 02:00: 00 Yes 750 [facility] Metoprolol Succinate (Toprol Xl *) 25 Mg Tablet ER 24HR Metoprolol Succinate (Toprol Xl *) 25 Mg Tablet ER 24HR 10-14 02:00: 00 Yes 25 [facility] morphine (2 mg/mL) injection 2 mg 10-13 07:30: 00 10-13 07:35 :00 No 2mg 2 mg, Slow IV Push, ONCE, 1 dose, On Sat10/13/24 at 0230, Routine [facility] ondansetron (ZOFRAN (PF)) injection 4 mg 10-13 05:15: 00 10-13 05:20 :00 No 4mg 4 mg, Slow IV Push, ONCE, 1 dose, On Sat10/13/24 at 0015, Administer over 2-5 Minutes, 2 mL [facility] morphine (2 mg/mL) injection 2 mg 10-13 05:15: 00 10-13 05:18 :00 No 2mg 2 mg, Slow IV Push, ONCE, 1 dose, On Sat10/13/24 at 0015, Routine [facility] aspirin chewable tablet 243 mg 10-13 04:00: 00 10-13 04:13 :00 No 243mg 243 mg, Oral, Once, 1 dose, On Sat10/12/24 at 2300, Routine [facility] nitroglycer in (NITROSTAT) sublingual tablet 0.4 mg 10-13 03:55: 07 Yes .4mg 0.4 mg, Sublingual , Q5MIN PRN, 3 doses, Starting on Sat10/12/24 at 2255, Until Discontinu ed, ROSELYN, Chest pain [facility] Haloperidol 1 MG oral Tablet 10-09 00:00: 00 01-07 00:00 :00 No TAKE 1 ORAL TABLET AT BEDTIME FOR [...] MG oral Tablet 09-07 00:00: 00 Yes [id number] 750mg Q.25D TAKE 1 TABLET (750 MG TOTAL) BY MOUTH 4 TIMES DAILY. Kellee pinedo Belsomra 20 MG oral Tablet 09-07 00:00: 00 Yes [id number] 1{tbl} QD TAKE 1 TABLET BY MOUTH EVERY DAY AT NIGHT Kellee pinedo Aspirin Low Dose 81 MG oral Tablet Delayed Response 2-25 00:00: 00 Yes [id number] 81mg QD TAKE 1 TABLET BY MOUTH [...] Tablet Therapy Pack 08-05 00:00: 00 Yes [id number] 1{heena} Take 1 heena by mouth See Admin Instructio ns Use as directed. Kellee pinedo Guaifenesin (Mucinex) 600 MG oral Tablet 12 Hour Sustained Release 08-05 00:00: 00 Yes [id number] 1200mg Q.5D Take 2 tablets (1,200 mg total) by mouth 2 times daily. Kellee pinedo Albuterol HFA 108 (90 Base) MCG/ACT IN AERS 08-05 00:00: 00 10-23 00:00 :00 No [id number] 2{puff} Q.25D Inhale 2 puffs into the lungs every 6 hours as needed for wheezing or shortness of breath. Kellee pinedo Belsomra 20 MG oral Tablet 08-04 00:00: 00 Yes [id number] 1{tbl} QD TAKE 1 TABLET BY MOUTH EVERY DAY AT NIGHT Kellee pinedo Aspirin Low Dose 81 MG oral Tablet Delayed Response 08-04 00:00: 00 Yes [id number] 81mg QD TAKE 1 TABLET BY MOUTH [...] dose, On 07/19/24 at 0200, Routine [facility] ipratropium -albuteroL (DUONEB) 0.5 mg-3 mg(2.5 mg base)/3 mL nebulizer solution 3 mL 07-19 08:00: 00 07-19 07:04 :00 No 3mL 3 mL, Inhalation , ONCE, 1 dose, On 07/19/24 at 0200, Routine [facility] azithromyci n (ZITHROMAX) tablet 500 mg 07-19 07:00: 00 07-19 07:05 :00 No 500mg 500 mg, Oral, ONCE, 1 dose, On 07/19/24 at 0100, ROSELYN, Reason for Anti-Infec tive: Documented Infection, Documented Infection Site: Respirator y, Duration of Therapy: Once (ED) [facility] iopamidol (ISOVUE 370-500 mL) injection 75 mL 07-19 06:45: 00 07-19 06:45 :00 No [id number] 75mL 75 mL, Intravenou s, ONCE, 1 dose, On 07/19/24 at 0045, Routine [facility] nitroglycer in (NITROL) 2 % ointment 0.5 Inch 07-19 06:00: 07-19 05:11 :00 No .5[in_u s] 0.5 Inch, Transderma l (Apply To Skin), ONCE, 1 dose, On 07/19/24 at 0000, [facility] ketorolac (TORADOL) injection 15 mg 07-19 06:00: 00 07-19 05:09 :00 No 15mg 15 mg, Slow IV Push, ONCE, 1 dose, On 07/19/24 at 0000, [facility] azithromyci n (ZITHROMAX Z-HEENA) 250 mg tablet 07-19 00:00: 00 11-01 00:00 :00 No [id number] 250mg Take 1 tablet by mouth SEE-INSTRU CTIONS. Take 500 mg day 1, then 250 mg days 2 to 5. [facility] predniSONE 20 mg tablet 07-19 00:00: 00 11-01 00:00 :00 No [id number] 1 PO BID x 4 days [facility] Sertraline HCl 50 MG oral Tablet - 00:00: 00 10-23 00:00 :00 No [id number] TAKE 1 TABLET BY MOUTH DAILY TAKE IN ADDITION TO 100 MG TABLET FOR A TOTAL DOSE OF 150 MG DAILY. Kellee pinedo Sertraline HCl 100 MG oral Tablet - 00:00: 00 10-23 00:00 :00 No [id number] TAKE 1 TABLET BY MOUTH EVERY MORNING TAKE IN ADDITION TO 50 MG TABLET FOR A TOTAL DOSE OF 150 MG DAILY. Kellee pinedo iopamidol (ISOVUE 370-500 mL) injection 100 mL 2023-07 06:45: 00 07-04 06:45 :00 No [id number] 100mL 100 mL, Intravenou s, ONCE, 1 dose, On 07/04/24 at 0045, Routine [facility] morpHINE [...] ONCE, 1 dose, On Sat07/03/24 at 2130, [facility] sodium chloride (NS) injection 5 mL 2023-07 02:16: 03 Yes 5mL 5 mL, Intravenou s, PRN, Starting on Sat07/03/24 at 2016, Until Discontinu ed, Routine, IV line flushing [facility] benzonatate 100 mg capsule 2023-07 00:00: 00 Yes [id number] 100mg Take 1 capsule by mouth 3 (three) times daily as needed for Cough. [facility] proMETHazin e 25 mg tablet 2023-07 00:00: 00 11-01 00:00 :00 No [id number] 25mg Take 1 tablet by mouth every 6 (six) hours as needed for Nausea and Vomiting (N/V). [facility] dicyclomine 10 mg capsule 2023-07 00:00: 00 11-01 00:00 :00 No [id number] 10mg Take 1 capsule by mouth 3 [...] 2023-07 00:00: 00 06-29 05:59 :00 No [id number] 100mg Take 1 capsule by mouth in the morning and 1 capsule in the evening. Do all this for 7 days. [facility] cephALEXin 500 mg capsule 2023-07 00:00: 00 06-29 05:59 :00 No [id number] 500mg Take 1 capsule by mouth 4 (four) times daily for 7 days. [facility] iopamidol (ISOVUE 370-500 mL) injection 100 mL 2023-07 06:30: 00 06-15 06:30 :00 No [id number] 100mL 100 mL, Intravenou s, ONCE, 1 dose, On Sat06/15/24 at 0030, Routine [facility] morpHINE (4 mg/mL) injection 4 mg 2023-07 06:00: 00 06-15 05:57 :00 No 4mg 4 mg, Slow IV Push, ONCE, 1 dose, On 06/15/24 at 0000, STAT [facility] proMETHazin e (PHENERGAN) 12.5 mg in NS 50 mL IV piggyback (CNR) 2023-07 05:15: 00 06-15 05:56 :00 No 12.5mg 12.5 mg, IV Piggyback, at 200 mL/hr Administer over 15 Minutes, ONCE, 1 dose, On [place] 06/14/24 at 2315, ROSELYN [facility] NaCl 0.9% (NS) IV infusion 1,000 mL 2023-07 04:30: 00 06-15 05:28 :00 No 1000mL at 999 mL/hr, Intravenou s, ONCE, 1 dose, On [place] 06/14/24 at 2230, Routine [facility] fentanyl PF (SUBLIMAZE (PF)) injection 50 mcg 2023-07 04:00: 00 06-15 04:23 :00 No 50ug 50 mcg, Slow IV Push, ONCE, 1 dose, On [place] 06/14/24 at 2200, Routine [facility] famotidine (PEPCID (PF)) injection 20 mg 2023-07 03:30: 00 06-15 04:18 :00 No 20mg 20 mg, Slow IV Push, ONCE, 1 dose, On [place] 06/14/24 at 2130, RO[facility]N [facility] ondansetron (ZOFRAN (PF)) injection 4 mg 2023-07 03:30: 00 06-15 04:20 :00 No 4mg 4 mg, Slow IV Push, ONCE, 1 dose, On 06/14/24 at 2130, Administer over 2-5 Minutes, 2 mL [facility] proMETHazin e 25 mg tablet 2023-07 00:00: 00 11-01 00:00 :00 No [id number] 25mg Take 1 tablet by mouth every [...] MG oral Capsule 2023-07 13:02: 35 Yes [id number] 50mg Q.5D Take 1 capsule (50 mg total) by mouth 2 times daily as needed for anxiety. Kellee pinedo Vitamin D, Ergocalcife rol, 1.25 MG (11801 UT) oral Capsule 2023-07 00:00: 00 Yes [id number] 67592T Q1W Take 1 capsule (50,000 units total) [...] ONCE, 1 dose, [facility] Sat05/19/24 at 1200[facility] disintegrat ing tablet 2023-07 00:00: 00 11-01 00:00 :00 No [id number] 4mg Take 1 tablet by mouth every 8 (eight) hours as needed for Nausea and Vomiting (N/V). [facility] hydrOXYzine Pamoate 50 MG oral Capsule 2023-07 10:26: 29 Yes [id number] 50mg Q.5D Take 1 capsule (50 mg total) by mouth 2 times daily as needed for anxiety. Kellee pinedo ondansetron (ZOFRAN (PF)) injection 4 mg 2023-07 03:45: 00 05-18 03:42 :00 No 4mg 4 mg, Slow IV Push, ONCE, 1 dose, On Sat05/17/24 at 2145, [facility] morpHINE (4 mg/mL) injection 4 mg 2023-07 03:45: 00 05-18 03:42 :00 No 4mg 4 mg, Slow IV Push, ONCE, 1 dose, On Sat05/17/24 at 2145, STAT [facility] ondansetron (ZOFRAN (PF)) injection 4 mg 2023-07 01:00: 00 05-18 01:21 :00 No 4mg 4 mg, Slow IV Push, ONCE, 1 dose, On Sat05/17/24 at 1900, [facility] fentanyl PF (SUBLIMAZE (PF)) injection 50 mcg 2023-07 01:00: 00 05-18 01:21 :00 No 50ug 50 mcg, Slow IV Push, ONCE, 1 dose, On Sat05/17/24 at 1900, STAT [facility] Suvorexant (Belsomra) 20 MG oral Tablet 2023-07 00:00: 00 Yes [id number] 1{tbl} QD Take 1 tablet by mouth nightly. Kellee pinedo Methocarbam ol 750 MG oral Tablet 2023-07 00:00: 00 Yes [id number] 750mg Q.25D Take 1 tablet (750 mg total) by mouth 4 times daily. Kellee pinedo Acetaminoph en-Codeine 300-30 MG oral Tablet 2023-07 00:00: 00 Yes [id number] Kellee pinedo Lorazepam (ATIVAN) 0.5 MG oral Tablet tablet 2023-07 00:00: 00 Yes [id number] .5mg Q.5D Take 1 tablet (0.5 mg total) by mouth 2 times daily as needed for anxiety. Kellee pinedo Sertraline HCl 50 MG oral Tablet 2023-07 00:00: 00 Yes [id number] 50mg QD Take 1 tablet (50 mg total) by mouth daily Take in addition to 100 mg tablet for a total dose of 150 mg daily. Kellee pinedo Sertraline HCl 100 MG oral Tablet 2023-07 00:00: 00 Yes [id number] 100mg Take 1 tablet (100 mg total) by mouth every morning Take in addition to 50 mg tablet for a total dose of 150 mg daily. Kelele pinedo Isosorbide Mononitrate CR 30 MG oral TABLET SR 24 HR 2023-07 00:00: 00 01-07 00:00 :00 No [id number] Kellee pinedo ondansetron (ZOFRAN (PF)) injection 4 [...] 05/07/24 at 2030, ROSELYN [facility] phenazopyri dine 200 mg tablet 2023-07 00:00: 00 11-01 00:00 :00 No [id number] 200mg Take 1 tablet by mouth in the morning and 1 tablet at noon and 1 tablet in the evening. [facility] Rosuvastati n Calcium 20 MG oral Tablet 2023-07 00:00: 00 01-07 00:00 :00 No 20mg QD Take 1 tablet (20 mg total) by mouth daily. Kellee pinedo Metoprolol Succinate 25 MG oral TABLET SR 24 HR 2023-07 00:00: 00 Yes [id number] 25mg QD Take 1 tablet (25 mg total) by mouth daily. Kellee pinedo Dicyclomine HCl 20 MG oral Tablet 2023-07 00:00: 00 Yes Kellee pinedo Ondansetron (ZOFRAN) 4 MG oral TABLET DISPERSIBLE 2023-07 00:00: 00 Yes 4mg Q.[id number] 3D Take 1 tablet (4 mg total) by mouth 3 times daily. Kellee pinedo Belsomra 20 MG oral Tablet 2023-07 00:00: 00 05-18 00:00 :00 No [id number] 1{tbl} QD take 1 tablet by mouth every day at night Kellee pinedo Nitrofurant oin (Macrobid *) 100 Mg CAP Nitrofurant oin (Macrobid *) 100 Mg CAP 2023-07 18:32: 00 10-14 01:54 :00 No 100 [facility] Ondansetron Hcl (Zofran *) 4 Mg Tablet Disint Ondansetron Hcl (Zofran *) 4 Mg Tablet Disint 2023-07 18:32: 00 10-14 01:54 :00 No 1 [facility] cefTRIAXone (ROCEPHIN) 1,000 [...] 1 dose, On Sat04/08/24 at 1915, STAT [facility] NaCl 0.9% (NS) bolus infusion 1,000 mL 2023-07 23:45: 00 04-09 01:24 :00 No 1000mL at 999 mL/hr, 1,000 mL, IV Infusion, ONCE, 1 dose, On Sat04/08/24 at 1845, [facility] ondansetron (ZOFRAN (PF)) injection 4 mg 2023-07 23:00: 00 04-08 22:57 :00 No 4mg 4 mg, Slow IV Push, ONCE, 1 dose, On Sat04/08/24 at 1800, [facility] ketorolac (TORADOL) injection 30 mg 2023-07 23:00: 00 04-08 22:57 :00 No 30mg 30 mg, Slow IV Push, ONCE, 1 dose, On Sat04/08/24 at 1800, [facility] sodium chloride (NS) injection 5 mL 2023-07 22:33: 00 Yes 5mL 5 mL, Intravenou s, PRN, Starting on Sat04/08/24 at 1733, Until Discontinu ed, Routine, IV line flushing [facility] ciprofloxac in HCl 500 mg tablet 2023-07 00:00: 00 11-01 00:00 :00 No [id number] 500mg Take 1 tablet by mouth in the morning and 1 tablet in the evening. [facility] Promethazin e HCl (PHENERGAN) 25 MG oral Tablet 03-14 00:00: 00 01-07 00:00 :00 No 25mg Q.[id number] 3D Take 1 tablet (25 mg total) by mouth every 8 hours as needed for nausea. Kellee pinedo Aspirin Low Dose 81 MG oral Tablet Delayed Response 02-09 00:00: 00 Yes [id number] 81mg QD take 1 tablet by mouth every day Kellee pinedo Clopidogrel Bisulfate (PLAVIX) 75 MG oral Tablet 02-09 00:00: 00 Yes [id number] 75mg QD take 1 tablet by mouth every day Kellee pinedo Methylpredn isolone Acetate (Depo-Medro l) 40 mg/ml - Physician Administere d ([id number]) 02-05 13:21: 25 No [id number] 9104 40mg 40 mg, Physician Administer ed, ONCE, 1 dose, On [place] 02/06/24 at 1145 Kellee pinedo hydrOXYzine Pamoate 50 MG oral Capsule 02-05 11:06: 49 Yes [id number] 50mg Q.5D Take 1 capsule (50 mg total) by mouth 2 times daily as needed for anxiety. Kellee pinedo Isosorbide Mononitrate CR 60 MG oral TABLET SR 24 HR 02-04 00:00: 00 Yes Kellee pinedo Lorazepam (ATIVAN) 0.5 MG oral Tablet tablet 01-09 00:00: 00 Yes [id number] .5mg Q.5D take 1 tablet by mouth 2 times daily as needed for anxiety Kellee pinedo Aspirin (Aspirin Low Dose) 81 MG oral Tablet Delayed Response 01-05 00:00: 00 Yes [id number] 81mg QD Take 1 tablet (81 mg total) by mouth daily. Kellee pinedo Atorvastati n Calcium 40 MG oral Tablet 01-05 00:00: 00 Yes [id number] 40mg QD Take 1 tablet (40 mg total) by mouth daily. Kellee pinedo Suvorexant (Belsomra) 20 MG oral Tablet 01-05 00:00: 00 Yes [id number] 1{tbl} QD Take 1 tablet by mouth nightly. Kellee pinedo Clopidogrel Bisulfate (PLAVIX) 75 MG oral Tablet 01-05 00:00: 00 Yes [id number] 75mg QD Take 1 tablet (75 mg [...] MG oral Capsule 12-12 09:19: 23 Yes [id number] 50mg Q.5D Take 1 capsule (50 mg total) by mouth 2 times daily as needed for anxiety. Kellee pinedo Lorazepam (ATIVAN) 0.5 MG oral Tablet tablet 12-12 00:00: 00 Yes [id number] .5mg Q.5D Take 1 tablet (0.5 mg total) by mouth 2 times daily as needed for anxiety. Kellee pinedo Aspirin Low Dose 81 MG oral Tablet Delayed Response 12-05 00:00: 00 Yes [id number] 81mg Take 1 tablet (81 mg total) by mouth daily. Kellee pinedo Atorvastati n Calcium 40 MG oral Tablet 12-05 00:00: 00 Yes [id number] 40mg Take 1 tablet (40 mg total) by mouth daily. Kellee pinedo Clopidogrel Bisulfate (PLAVIX) 75 MG oral Tablet 12-05 00:00: 00 Yes [id number] 75mg Take 1 tablet (75 mg total) by mouth daily. Kellee pinedo Mometasone Furo-Formot camelia Fum (Dulera) 200-5 MCG/ACT inhalation Aerosol 12-05 00:00: 00 05-18 00:00 :00 No TWICE DAILY Kellee pinedo Vitamin D, Ergocalcife rol, 1.25 MG (07367 UT) oral Capsule 12-04 00:00: 00 Yes [id number] Q1W Take 1 capsule (50,000 units total) by mouth once a week. Kellee pinedo Ferrous Sulfate 325 (65 Fe) MG oral Tablet 12-04 00:00: 00 Yes [id number] 325mg QD Take 1 tablet (325 mg total) by mouth daily (with breakfast) . Kellee pinedo Clopidogrel Bisulfate (PLAVIX) 75 MG oral Tablet 12-04 00:00: 00 01-07 00:00 :00 No 75mg Take 1 tablet (75 mg total) by mouth. Kellee pinedo Mirtazapine 45 MG oral Tablet 12-02 10:49: 07 12-02 00:00 :00 No [id number] 45mg Take 1 tablet (45 mg total) by mouth nightly. Kellee pinedo hydrOXYzine Pamoate 50 MG oral Capsule 12-02 10:49: 04 Yes [id number] 50mg Q.5D Take 1 capsule (50 mg total) by mouth 2 times daily as needed for anxiety. Kellee pinedo Ascorbic Acid 500 MG oral Tablet 12-02 10:48: 55 12-02 00:00 :00 No 50mg Take 50 mg by mouth. Kellee pinedo Suvorexant (Belsomra) 20 MG oral Tablet 12-02 00:00: 00 Yes [id number] 1{tbl} Take 1 tablet by mouth nightly. Kellee pinedo Lorazepam 1 MG oral Tablet 12-02 00:00: 00 12-12 00:00 :00 No [id number] 1mg Q.5D Take 1 tablet (1 mg total) by mouth 2 times daily as needed for anxiety. Kellee pinedo Doxepin HCl 3 MG oral Tablet 11-27 00:00: 00 05-18 00:00 :00 No [id number] 1{tbl} QD TAKE 1 TABLET BY MOUTH EVERY DAY AT NIGHT Kellee pinedo Aripiprazol e 5 MG oral Tablet 11-27 00:00: 00 05-18 00:00 :00 No [id number] 5mg QD TAKE 1 TABLET (5 MG TOTAL) BY MOUTH DAILY. Kellee pinedo Mirtazapine 45 MG oral Tablet 10-28 13:20: 58 Yes [id number] 45mg Take 1 tablet (45 mg total) by mouth nightly. Kellee pinedo Ascorbic Acid 500 MG oral Tablet 10-28 13:20: 47 Yes 50mg Take 50 mg by mouth. Kellee pinedo hydrOXYzine Pamoate 50 MG oral Capsule 10-28 13:20: 47 10-28 00:00 :00 No [id number] 50mg Q.5D Take 1 capsule (50 mg total) by mouth every 4 to 6 hours as needed. Kellee pinedo Sertraline HCl 150 MG oral Capsule 10-28 13:20: 03 10-28 00:00 :00 No 150mg Take 150 mg by mouth daily. Kellee pinedo Doxepin HCl 3 MG oral Tablet 10-28 00:00: 00 Yes [id number] 1{tbl} Take 1 tablet by mouth nightly. Kellee pinedo Aripiprazol e 5 MG oral Tablet 10-28 00:00: 00 Yes [id number] 5mg Take 1 tablet (5 mg total) by mouth daily. Kellee Ariasazra pinedo Suvorexant 10 MG oral Tablet 10-28 00:00: 00 12-02 00:00 :00 No [id number] 1{tbl} Take 1 tablet by mouth nightly. Kellee Marcio pinedo Sertraline HCl 50 MG oral Tablet 10-26 00:00: 00 Yes [id number] Kellee Ariasazra pinedo HYDROcodone -acetaminop hen (NORCO) 10-325 mg tablet 1 tablet 10-10 06:15: 00 10-10 05:25 :00 No 1{tbl} 1 tablet, Oral, ONCE NOW, 1 dose, On Sat10/11/23 at 0115, [facility] iopamidol (ISOVUE 370-500 mL) injection 100 mL 10-10 05:00: 00 10-10 05:00 :00 No [id number] 100mL 100 mL, Intravenou s, ONCE, 1 dose, On Sat10/11/23 at 0000, Routine [facility] ketorolac (TORADOL) injection 30 mg 10-10 04:30: 00 10-10 03:29 :00 No 30mg 30 mg, Slow IV Push, ONCE, 1 dose, On Sat10/10/23 at 2330, Routine [facility] NaCl 0.9% (NS) IV infusion 1,000 mL 10-10 04:15: 00 10-10 05:18 :00 No 1000mL at 999 mL/hr, Intravenou s, ONCE, 1 dose, On Sat10/10/23 at 2315, Routine [facility] ondansetron (ZOFRAN (PF)) injection 4 mg 10-10 04:00: 00 10-10 03:54 :00 No 4mg 4 mg, Slow IV Push, ONCE, 1 dose, On Sat10/10/23 at 2300, [facility] morpHINE (4 mg/mL) injection 4 mg 10-10 04:00: 10-10 03:54 :00 No 4mg 4 mg, [...] 10-10 00:00: 00 11-01 00:00 :00 No [id number] 200mg Take 1 tablet by mouth in the morning and 1 tablet at noon and 1 tablet in the evening. [facility] ondansetron (ZOFRAN) 4 mg tablet 10-10 00:00: 00 11-01 00:00 :00 No [id number] 4mg Take 1 tablet by mouth every 8 (eight) hours as needed for Nausea and Vomiting (N/V). [facility] ketorolac 10 mg tablet 10-10 00:00: 00 11-01 00:00 :00 No [id number] 10mg Take 1 tablet by mouth every 6 (six) hours as needed for Pain (scale 7-10). [facility] Sertraline HCl 100 MG oral Tablet 10-09 00:00: 00 Yes [id number] 100mg Take 1 tablet (100 mg total) by mouth every morning. Kellee pinedo acetaminoph en (TYLENOL) tablet 975 mg 2022-07 04:15: 00 07-02 03:11 :00 No 975mg 975 mg, Oral, ONCE, 1 dose, On Sat07/01/23 at 2215, [facility] dicyclomine (BENTYL) tablet 20 mg [...] 2022-07 00:00: 00 11-01 00:00 :00 No [id number] 20mg Take 1 tablet by mouth 4 (four) times daily. [facility] ondansetron 4 mg disintegrat ing tablet 2022-07 00:00: 00 11-01 00:00 :00 No [id number] 4mg Take 1 tablet by mouth every 4 (four) hours as needed for Nausea and Vomiting (N/V). [facility] Alprazolam (Alprazolam *) 1 Mg TAB Alprazolam (Alprazolam *) 1 Mg TAB 2022-07 12:08: 00 06-14 00:00 :00 No 1 [facility] Trazodone Hcl (Desyrel 100 Mg*) 100 Mg TAB Trazodone Hcl (Desyrel 100 Mg*) 100 Mg TAB 2022-07 12:07: 00 06-06 12:08 :00 No 1 [facility] Aspirin (Aspirin Ec) 81 Mg Tablet Aspirin (Aspirin Ec) [address] 2022-07 11:55: 00 07-07 00:00 :00 No 81 [facility] Alprazolam (Xanax 2 Mg*) 2 Mg TAB Alprazolam (Xanax 2 Mg*) 2 Mg TAB 2022-07 11:09: 40 06-06 12:08 :00 No 2 [facility] Trazodone Hcl (Desyrel 300 Mg*) 300 Mg TAB Trazodone Hcl (Desyrel 300 Mg*) 300 Mg TAB 2022-07 11:09: 39 05-13 15:45 :00 No 300 [facility] Alprazolam 1 MG oral Tablet 2022-07 00:00: 00 12-12 00:00 :00 No [id number] 2mg Take 2 tablets (2 mg total) by mouth 2 times daily. Kellee pinedo Pantoprazol e * (Protonix Ec *) [address] Pantoprazol e * (Protonix Ec *) [address] 2022-07 15:44: 00 06-05 00:28 :00 No 20 [facility] Sucralfate (Carafate *) 1 Gm TAB Sucralfate (Carafate *) 1 Gm TAB 2022-07 15:44: 00 06-05 00:28 :00 No 1 [facility] Ciprofloxac in Hcl (Cipro *) 500 Mg TAB Ciprofloxac in Hcl (Cipro *) 500 Mg TAB 2022-07 15:44: 00 05-16 00:00 :00 No 500 [facility] Pantoprazol e Sodium 20 MG oral Tablet Delayed Response 2022-07 00:00: 00 12-02 00:00 :00 No Take by mouth. Kellee pinedo ketorolac (TORADOL) injection 15 mg 2022-07 01:00: 00 05-10 00:09 :00 No 15mg 15 mg, Slow IV Push, ONCE, 1 dose, On Sat05/09/23 at 2000, [facility] proCHLORper azine (COMPAZINE) injection 5 mg 2022-07 23:30: 00 05-09 22:48 :00 No 5mg 5 mg, Slow IV Push, ONCE, 1 dose, On Sat05/09/23 at 1830, [facility] diphenhydrA MINE (BENADRYL) injection 25 [...] 2022-07 00:45: 00 05-01 00:45 :00 No [id number] 100mL 100 mL, Intravenou s, ONCE, 1 dose, On Sat04/30/23 at 1945, [facility] NaCl 0.9% (NS) bolus infusion 1,000 mL 2022-07 00:00: 00 05-01 00:45 :00 No 1000mL at 999 mL/hr, 1,000 mL, IV Piggyback, ONCE, 1 dose, On Sat04/30/23 at 1900, STAT [facility] proCHLORper azine (COMPAZINE) injection 5 mg 2022-07 23:45: 00 04-30 23:09 :00 No 5mg 5 mg, Slow IV Push, ONCE, 1 dose, On Sat04/30/23 at 1845, [facility] diphenhydrA MINE (BENADRYL) injection 25 mg 2022-07 23:00: 00 04-30 23:09 :00 No 25mg 25 mg, Slow IV Push, ONCE, 1 dose, On Sat04/30/23 at 1800, STAT [facility] dicyclomine 20 mg tablet 2022-07 00:00: 00 07-01 00:00 :00 No [id number] 20mg Take 1 tablet by mouth 4 (four) times daily. [facility] acetaminoph en (TYLENOL) tablet 1,000 mg 2022-07 02:45: 00 04-17 02:43 :00 No 1000mg 1,000 mg, Oral, ONCE, 1 dose, On Sat04/16/23 at 2145, [facility] ondansetron (ZOFRAN (PF)) injection 4 mg 2022-07 0- 03:15: 00 04-09 02:13 :00 No 4mg 4 mg, Slow IV Push, ONCE, 1 dose, On Sat04/08/23 at 2215, [facility] dicyclomine (BENTYL) tablet 20 mg 2022-07 0-03 03:15: 00 04-09 02:16 :00 No 20mg 20 mg, Oral, ONCE, 1 dose, On Sat04/08/23 at 2215, Routine [facility] ondansetron (ZOFRAN (PF)) injection 4 mg 2022-07 0 23:45: 00 04-08 23:16 :00 No 4mg 4 mg, Slow IV Push, ONCE, 1 dose, On Sat04/08/23 at 1845[facility]/mL[facility] 4 mg 2022-07 0 23:45: 00 04-08 23:45 :00 No 4mg 4 mg, Slow IV Push, ONCE, 1 dose, On Sat04/08/23 at 1845, STAT [facility] ondansetron 4 mg disintegrat ing tablet 2022-07 0 00:00: 00 07-01 00:00 :00 No [id number] 4mg Take 1 tablet by mouth every 8 (eight) hours as needed for Nausea and Vomiting (N/V). [facility] dicyclomine 20 mg tablet 2022-07 002 00:00: 00 04-30 00:00 :00 No [id number] 20mg Take 1 tablet by mouth 4 (four) times daily. [facility] acetaminoph en (TYLENOL) tablet 1,000 mg 03-10 04:30: 00 03-10 04:29 :00 No 1000mg 1,000 mg, Oral, ONCE, 1 dose, On 03/09/23 at 2330, [facility] iopamidol (ISOVUE 370-500 mL) injection 85 mL 03-10 04:30: 00 03-10 04:30 :00 No [id number] 85mL 85 mL, Intravenou s, ONCE, 1 [...] 03-09 00:00: 00 11-01 00:00 :00 No [id number] 1{packe t} Take 1 Packet by mouth once daily as needed for Constipati on. [facility] Simethicone 125 mg 03-09 00:00: 00 11-01 00:00 :00 No [id number] 125mg Take 1 capsule by mouth after meals and at bedtime as needed for Gas. [facility] iopamidol (ISOVUE 370-500 mL) injection 100 mL 03-02 06:15: 00 03-02 06:15 :00 No [id number] 100mL 100 mL, Intravenou s, ONCE, 1 [...] 1 dose, On Sat03/01/23 at 2315, [facility] ondansetron (ZOFRAN) 4 mg tablet 03-02 00:00: 00 11-01 00:00 :00 No [id number] 4mg Take 1 tablet by mouth every 8 (eight) hours as needed for Nausea and Vomiting (N/V). [facility] dicyclomine 20 mg tablet 03-02 00:00: 00 04-30 00:00 :00 No [id number] 20mg Take 1 tablet by mouth every 6 (six) hours as needed for Abdominal pain. [facility] metoclopram tracy HCl (REGLAN) injection 10 mg 02-18 06:45: 00 02-18 06:43 :00 No 10mg 10 mg, Slow IV Push, ONCE, 1 dose, On Sat02/18/23 at 0145, [facility] morpHINE (4 mg/mL) injection 4 [...] 1 dose, On 02/17/23 at 2330, [facility] proMETHazin e 25 mg tablet 02-18 00:00: 00 11-01 00:00 :00 No [id number] 25mg Take 1 tablet by mouth every [...] bedtime. [facility] ALPRAZOLAM ORAL 02-17 16:: 11-04 00:00 [facility] OLANZapine (ZYPREXA) 15 mg tablet 02-17:: 11-01 00:00 :00 No 15mg Take 1 [...] , Starting on 02/16/23 at 2115, Until [place] 02/17/23 at 1714, Routine [facility] traZODone (DESYREL) tablet 400 mg 02-17 02:00: 00 Yes 400mg 400 mg, Oral, QHS, First dose on 02/16/23 at 2100, Until Discontinu ed [facility] melatonin (MELATIN) tablet 9 mg 02-17 02:00: 00 Yes 9mg 9 mg, Oral, QHS, First dose on 02/16/23 at 2100, Until Discontinu ed [facility] morpHINE (2 mg/mL) injection 2 mg 02-17 01:07: 50 03-01 01:06 :50 No 2mg 2 mg, Slow IV Push, Q4HPRN, Starting on 02/16/23 at 2006, Until [place] 02/28/23 at 2005, Routine, Pain (scale 7-10) [facility] OLANZapine (ZyPREXA) tablet 15 mg 02-16 22:00: 00 Yes 15mg 15 mg, Oral, QPM, First dose on 02/16/23 at 1700, Until Discontinu ed, Routine [facility] buPROPion XL (WELLBUTRIN XL) tablet 150 mg 02-16 14:00: 00 Yes 150mg 150 mg, Oral, DAILY, First dose on [facility] 02/16/23 at 0900, Until Discontinu ed [facility] enoxaparin (LOVENOX) injection 40 mg 02-16 14:00: 00 Yes 40mg 40 mg, Subcutaneo us, DAILY, First dose on 02/16/23 at 0900, Until Discontinu ed, Routine [facility] methocarbam oL (ROBAXIN) tablet 500 mg 02-16 06:04: 59 Yes 500mg 500 mg, Oral, Q6HPRN, Starting on 02/16/23 at 0104, Until Discontinu ed, Routine, Muscle Spasms [facility] ALPRAZolam (XANAX) tablet 2 mg 02-16 06:03: 54 Yes 2mg 2 mg, Oral, TIDPRN, Starting on Sat02/16/23 at 0103, Until Discontinu ed, Anxiety [facility] lactated ringers IV infusion 1,000 mL 02-16 03:15: 00 02-16 23:14 :00 No 1000mL at 100 mL/hr, 1,000 mL, IV Infusion, CONTINUOUS , Starting on Sat02/15/23 at 2215, Until 02/16/23 at 1814, Routine [facility] morpHINE (2 mg/mL) injection 2 mg 02-16 03:07: 02 02-17 01:08 :14 No 2mg 2 mg, Slow IV Push, Q4HPRN, Starting on Sat02/15/23 at 2207, Until 02/16/23 at 2008, Routine, Pain (scale 7-10) [facility] traMADoL (ULTRAM) tablet 50 mg 02-16 03:06: 59 02-18 03:05 :59 No 50mg 50 mg, Oral, Q8HPRN, Starting on Sat02/15/23 at 2206, Until Sat02/17/23 at 2205, Routine, Pain (scale 4-6) [facility] acetaminoph en (TYLENOL) tablet 1,000 mg 02-16 03:06: 50 Yes 1000mg 1,000 mg, Oral, Q6HPRN, Starting on Sat02/15/23 at 2206, Until Discontinu ed, Routine, Pain (scale 1-3), Temp > 38 C [facility] ALPRAZolam (XANAX) 1 mg tablet 02-16 01:09: 19 02-15 00:00 :00 No 1mg Take 1 tablet by mouth in the morning and 1 tablet in the evening. [facility] iopamidol (ISOVUE 370-500 mL) injection 80 mL 02-16 00:30: 00 02-16 00:30 :00 No [id number] 80mL 80 mL, Intravenou s, ONCE, 1 dose, On Sat02/15/23 at 1930, Routine [facility] lactated ringers IV infusion 1,000 mL 02-16 00:00: 00 02-16 03:07 :30 No [id number] 1000mL at 500 mL/hr, 1,000 mL, IV Infusion, CONTINUOUS , Starting on Sat02/15/23 at 1900, Until Sat02/15/23 at 2207, [facility] FENTanyl PF (SUBLIMAZE (PF)) injection 75 mcg 02-15 23:45: 00 02-15 23:13 :00 No [id number] 75ug 75 mcg, Slow IV Push, ONCE, 1 dose, On Sat02/15/23 at 1845, Routine [facility] dicyclomine (BENTYL) injection 20 mg 02-15 22:15: 00 02-15 21:46 :00 No [id number] 20mg 20 mg, Intramuscu lar, ONCE NOW, 1 dose, On Sat02/15/23 at 1715, Routine [facility] LORazepam (ATIVAN) injection 1 mg 02-15 21:45: 00 02-15 21:46 :00 No [id number] 1mg 1 mg, Slow IV Push, ONCE, 1 dose, On Sat02/15/23 at 1645, STAT [facility] ondansetron (ZOFRAN (PF)) injection 4 mg 02-15 21:45: 00 02-15 21:46 :00 No [id number] 4mg 4 mg, Slow IV Push, ONCE, 1 dose, On Sat02/15/23 at 1645[facility]DR[facility] -[facility]aminop hen (NORCO) 10-325 mg tablet 1 tablet 02-15 20:15: 00 02-15 19:52 :00 No [id number] 1{tbl} 1 tablet, Oral, ONCE, 1 dose, [...] 02-15 19:30: 00 02-15 19:52 :00 No [id number] 20mg 20 mg, Oral, ONCE, 1 dose, On Sat02/15/23 at 1430, [facility] ibuprofen (IBU) tablet 800 mg 02-15 19:30: 00 02-15 19:52 :00 No [id number] 800mg 800 mg, Oral, ONCE, 1 dose, On Sat02/15/23 at 1430, [facility] losartan 50 mg tablet 02-15 13:44: 36 02-15 00:00 :00 No 50mg Take 1 tablet by mouth in the morning. [facility] [place]-3-DHA -EPA-Fish Oil (FISH OIL) 1,000 mg (120 [...] 12/14/21 at 0900, Until Discontinu ed, Routine [facility] ketorolac (TORADOL) injection 15 mg 12-14 08:15: 00 12-14 07:11 :00 No 15mg 15 mg, Slow IV Push, ONCE, 1 dose, On [place] 12/14/21 at 0315, [facility] morpHINE [...] dose, On [place] 12/14/21 at 0045, [facility] ondansetron (ZOFRAN (PF)) injection 4 mg 12-14 04:45: 00 12-14 03:50 :00 No 4mg 4 mg, Slow IV Push, ONCE, 1 dose, On Sat12/13/21 at 2345, [facility] FENTanyl PF (SUBLIMAZE (PF)) injection [...] 12-14 00:00: 00 02-15 00:00 :00 No [id number] 500mg Take 1 tablet by mouth 2 (two) times daily with meals. [facility] cefpodoxime 200 mg tablet 12-14 00:00: 00 12-22 04:59 :00 No [id number] 200mg Take 1 tablet by mouth 2 (two) times daily for 7 days. [facility] LORazepam (ATIVAN) injection 1 mg 11-12 05:00: 00 11-12 04:01 :00 No 1mg 1 mg, Slow IV Push, ONCE, 1 dose, On Sat11/12/21 at 0000, STAT [facility] ketorolac (TORADOL) injection 30 mg 11-12 03:30: 00 11-12 02:26 :00 No 30mg 30 mg, Slow IV Push, ONCE, 1 dose, On 11/11/21 at 2230, Routine
receiving team member approving Restricted medication : APPLE WANG [facility] nitroglycer in (NITROSTAT) sublingual tablet 0.4 mg 11-12 03:30: 00 11-12 02:26 :00 No .4mg 0.4 mg, Sublingual , ONCE, 1 dose, On 11/11/21 at 2230, [facility] aspirin E.C. (ECOTRIN) tablet 325 mg 11-12 03:30: 00 11-12 02:25 :00 No 325mg 325 mg, Oral, ONCE, 1 dose, On 11/11/21 at 2230, [facility] morpHINE (4 mg/mL) injection 4 mg 11-12 02:30: 00 11-12 01:40 :00 No 4mg 4 mg, Slow IV Push, ONCE, 1 dose, On 11/11/21 at 2130, STAT [facility] ondansetron (ZOFRAN (PF)) injection 4 mg 11-12 02:30: 00 11-12 01:40 :00 No 4mg 4 mg, Slow IV Push, ONCE, 1 dose, On 11/11/21 at 2130, [facility] NaCl 0.9% (NS) bolus infusion 1,000 mL 11-12 02:30: 00 11-12 02:30 :00 No 1000mL at 999 mL/hr, 1,000 mL, IV Infusion, ONCE, 1 dose, On 11/11/21 at 2130, [facility] hydrOXYzine 50 mg tablet 11-11 00:00: 00 04-08 00:00 :00 No [id number] 50mg Take 1 tablet by mouth every 8 (eight) hours as needed for Anxiety. [facility] ketorolac (TORADOL) injection 30 mg -08 05:45: 00 09-12 04:54 :00 No 30mg 30 mg, Slow IV Push, ONCE, 1 dose, On Sat09/11/21 at 2345, Routine
receiving team member approving Restricted medication : APPLE [...] 1 dose, On Sat09/11/21 at 2115, [facility] morpHINE injection 4 mg 09-12 03:15: 00 09-12 02:39 :00 No 4mg 4 mg, Slow IV Push, ONCE, 1 dose, On Sat09/11/21 at 2115, STAT [facility] iopamidol (ISOVUE 370-500 mL) injection 120 mL 09-12 02:45: 00 09-12 03:00 :00 No [id number] 120mL 120 mL, Intravenou s, ONCE, 1 dose, On Sat09/11/21 at 2100, Routine [facility] sodium chloride (NS) injection 5 mL 09-12 01:33: 26 Yes 5mL 5 mL, Intravenou s, PRN, Starting on Sat09/11/21 at 1933, Until Discontinu ed, Routine, IV line flushing [facility] ibuprofen 600 mg tablet 09-11 00:00: 00 02-15 00:00 :00 No [id number] 600mg Take 1 tablet by mouth every 6 (six) hours as needed for Pain (scale 4-6). [facility] cefdinir 300 mg capsule 3-07 00:00: 00 09-19 04:59 :00 No [id number] 300mg Take 1 capsule by mouth 2 [...] 500 mg tablet 08-15 00:00: 00 Yes [id number] 500mg Take 1 tablet by mouth every [...] 08-15 00:00: 00 02-15 00:00 :00 No [id number] 100mg Take 1 capsule by mouth 2 [...] 2020-07 00:00: 00 06-13 05:59 :00 No [id number] 20mg Take 1 tablet by mouth 2 (two) times daily for 15 days. [facility] escitalopra m oxalate (LEXAPRO) tablet 10 mg 2020-07 02:00: 00 Yes 10mg 10 mg, Oral, QHS, First dose on 04/08/21 at 2100, Until Discontinu ed, Routine [facility] aspirin 81 mg chewable tablet 2020-07 00:00: 00 05-10 04:59 :00 No [id number] 81mg Take 1 tablet by mouth daily for 30 days. [facility] traZODone (DESYREL) tablet 200 mg 2020-07 22:00: 00 Yes 200mg 200 mg, Oral, QPM, First dose on 04/08/21 at 1700, Until Discontinu ed [facility] topiramate (TOPAMAX) tablet 200 mg 2020-07 0 22:00: 00 Yes 200mg 200 mg, Oral, QPM, First dose on 04/08/21 at 1700, Until Discontinu ed, Routine
receiving team member approving Restricted medication : EDIONWE, [facility] OLANZapine (ZyPREXA) tablet 15 [...] 3 (three) times daily. [facility] [place]-3-DHA -EPA-Fish Oil (FISH OIL) 1,000 mg (120 [...] at 0930, Until Discontinu ed, Routine [facility] losartan (COZAAR) tablet 50 mg 2020-07 14:00: 00 Yes 50mg 50 mg, Oral, DAILY, First dose on 04/08/21 at 0900, Until Discontinu ed, Routine [facility] buPROPion XL (WELLBUTRIN XL) tablet 150 mg 2020-07 14:00: 00 Yes 150mg 150 mg, Oral, DAILY, First dose on 04/08/21 at 0900, Until Discontinu ed [facility] aspirin chewable tablet 81 mg 2020-07 14:00: 00 Yes 81mg 81 mg, Oral, DAILY, First dose on 04/08/21 at 0900, Until Discontinu ed, Routine [facility] enoxaparin (LOVENOX) injection 40 mg 2020-07 14:00: 00 Yes 40mg 40 mg, Subcutaneo us, DAILY, First dose on 04/08/21 at 0900, Until Discontinu ed, Routine [facility] OLANZapine (ZyPREXA) tablet 2.5 mg 2020-07 13:00: 00 Yes 2.5mg 2.5 mg, Oral, BID, First dose on 04/08/21 at 0800, Until Discontinu ed, [facility]ROBAXIN[facility] 750 mg 2020-07 13:00: 00 Yes 750mg 750 mg, Oral, TID, First dose on Sat04/08/21 at 0800, Until Discontinu ed, Routine [facility] LORazepam (ATIVAN) injection 0.5 mg 2020-07 0 04:07: 43 Yes .5mg 0.5 mg, Slow IV Push, PRN, 2 doses, Starting on Sat04/07/21 at 2307, Until Discontinu ed, Routine, Anxiety [facility] hydrOXYzine (ATARAX) tablet 50 mg 2020-07 0 02:51: 23 Yes 50mg 50 mg, Oral, Q4HPRN, Starting on Sat04/07/21 at 2151, Until Discontinu ed, Itching [facility] LORazepam (ATIVAN) tablet 0.5 mg 2020-07 02:05: 29 Yes .5mg 0.5 mg, Oral, PRN, 2 doses, Starting on Sat04/07/21 at 2105, Until Discontinu ed, Routine, Anxiety [facility] morpHINE injection 4 mg 2020-07 00:00: 00 04-07 22:58 :00 No 4mg 4 mg, Slow IV Push, ONCE, 1 dose, On Sat04/07/21 at 1900, STAT [facility] ondansetron (ZOFRAN (PF)) injection 4 mg 2020-07 00:00: 00 04-07 22:56 :00 No 4mg 4 mg, Slow IV Push, ONCE, 1 dose, On Sat04/07/21 at 1900, [place] [facility] morpHINE injection 4 mg 2020-07 23:58: 03 04-08 23:57 :03 No 4mg 4 mg, Slow IV Push, Q4HPRN, Starting on Sat04/07/21 at 1858, Until 04/08/21 at 1857, Routine, Pain (scale 7-10) [facility] HYDROcodone -acetaminop hen (NORCO 5) 5-325 mg tablet 1 tablet 2020-07 23:58: 00 04-09 23:57 :00 No 1{tbl} 1 tablet, Oral, Q6HPRN, Starting on Sat04/07/21 at 1858, Until 04/09/21 at 1857, Routine, Pain (scale 4-6) [facility] acetaminoph en (TYLENOL) tablet 650 mg 2020-07 23:57: 57 Yes 650mg 650 mg, Oral, Q6HPRN, Starting on Sat04/07/21 at 1857, Until Discontinu ed, Routine, Pain (scale 1-3) [facility] aspirin tablet 325 mg 2020-07 23:00: 00 04-07 21:56 :00 No 325mg 325 mg, Oral, ONCE, 1 dose, On Sat04/07/21 at 1800, STAT [facility] nitroglycer in (NITROSTAT) sublingual tablet 0.4 mg 2020-07 21:51: 01 04-07 22:46 :00 No .4mg 0.4 mg, Sublingual , Q5MIN PRN, 3 doses, Starting on Sat04/07/21 at 1651, Until Discontinu ed, ROSELYN, Chest pain [facility] fluconazole (DIFLUCAN) tablet 150 [...] 01-12 00:00: 00 04-07 00:00 :00 No [id number] 500mg Take 1 capsule by mouth 3 [...] Push, ONCE, 1 dose, 12/10/20 at 1845, [facility] NaCl 0.9% (NS) bolus infusion 2,000 mL 12-10 22:45: 00 12-11 01:29 :00 No 2000mL at 999 mL/hr, 2,000 mL, IV Infusion, ONCE, 1 dose, 12/10/20 at 1745, [facility] proMETHazin e 25 mg tablet 12-10 00:00: 00 04-07 00:00 :00 No [id number] 12.5mg Take 0.5 tablets by mouth every [...] Oral, ONCE, 1 dose, 12/04/20 at 1645, [facility] ondansetron (ZOFRAN (PF)) injection 4 mg 12-04 21:15: 00 12-04 20:22 :00 No 4mg 4 mg, Slow IV Push, ONCE, 1 dose, 12/04/20 at 1615, [facility] morpHINE injection 4 mg 12-04 21:15: 00 12-04 20:21 :00 No 4mg 4 mg, Slow IV Push, ONCE, 1 dose, 12/04/20 at 1615, STAT [facility] ALPRAZolam (XANAX) 2 mg tablet 11-04 04:24: 19 11-03 00:00 :00 No 2mg Take 2 mg by mouth at bedtime. [facility] LORazepam (ATIVAN) injection 1 mg 11-04 04:00: 00 11-04 02:57 :00 No 1mg 1 mg, Slow IV Push, ONCE, 1 dose, [place] 11/03/20 at 2300, STAT [facility] LORazepam (ATIVAN) tablet 1 mg 11-04 04:00: 00 11-04 02:57 :00 No 1mg 1 mg, Oral, ONCE, 1 dose, [place] 11/03/20 at 2300, [facility] clonazePAM 0.5 mg tablet 11-01 [...] 00 09-30 00:00 :00 No [address] [facility] ibuprofen (IBU) tablet 800 mg 09-17 16:55: 00 09-17 16:57 :00 No 800mg 800 mg, Oral, ONCE, 1 dose, 09/17/20 at 1100, [facility] benzonatate 100 mg capsule 2021-0 3-13 00:00: 00 04-07 00:00 :00 No [id number] 100mg Take 1 capsule by mouth 3 (three) times daily as needed for Cough. [facility] amoxicillin 500 mg capsule 09-17 00:00: 00 09-28 04:59 :00 No [id number] 500mg Take 1 capsule by mouth 3 (three) times daily for 10 days. [facility] HYDROcodone -acetaminop hen (NORCO) 10-325 mg tablet 1 tablet 09-07 07:45: 00 09-07 07:09 :00 No 1{tbl} 1 tablet, Oral, ONCE, 1 dose, Sat09/07/20 at 0145, Routine [facility] ondansetron (ZOFRAN-ODT ) disintegrat ing tablet 4 mg 09-07 07:15: 00 09-07 07:15 :00 No 4mg 4 mg, Oral, ONCE, 1 dose, Sat09/07/20 at 0130, Routine [facility] ibuprofen 800 mg tablet 09-07 00:00: 00 Yes [id number] 800mg Take 1 tablet by mouth every 8 (eight) hours as needed for Pain (scale 4-6). [facility] ketorolac (TORADOL) injection 30 mg 08-28 10:45: 00 08-28 09:48 :00 No 30mg 30 mg, Slow IV Push, ONCE, 1 dose, 08/28/20 at 0445, Routine
receiving team member approving Restricted medication : BOB [...] 1 dose, 08/28/20 at 0400, Routine [facility] maalox:diph enhydrAMINE :lidocaine 2 % viscous 1:1:1 [...] 08-28 00:00: 00 04-07 00:00 :00 No [id number] 20mg Take 1 tablet by mouth every 6 (six) hours as needed for Abdominal pain. [facility] ondansetron (ZOFRAN) 4 mg tablet 08-28 00:00: 00 09-17 00:00 :00 No [id number] 4mg Take 1 tablet by mouth every [...] 1 dose, 08/14/20 at 1300, ROSELYN
[facility] member approving Restricted medication : BSET TAYLOR [facility] piperacilli n-tazobacta m (ZOSYN) 3.375 g in NaCl 0.9% (NS) 100 mL MINI-BAG 08-14 19:00: 00 08-14 18:38 :00 No 3.375g 3.375 g, IV Piggyback, ONCE, 1 dose, Cornish 08/14/20 at 1300, 100 mL
Reas on for Anti-Infec tive: Documented Infection< br>Documen kaushik Infection Site: Urine
D uration of Therapy: Other (see Comments) [facility] NaCl 0.9% (NS) bolus infusion 1,000 mL 08-14 19:00: 00 08-14 19:00 :00 No 1000mL at 999 mL/hr, 1,000 mL, IV Infusion, ONCE, 1 dose, Cornish 08/14/20 at 1300, STAT [facility] guaiFENesin 100 mg/5 mL solution 08-14 00:00: 00 04-07 00:00 :00 No [id number] 100mg Take 5 mL by mouth every 4 (four) hours. [facility] ondansetron 4 mg disintegrat ing tablet 08-14 00:00: 00 09-17 00:00 :00 No [id number] 4mg Take 1 tablet by mouth every 8 (eight) hours as needed for Nausea and Vomiting (N/V). [facility] ibuprofen 600 mg tablet 08-14 00:00: 00 09-17 00:00 :00 No [id number] 600mg Take 1 tablet by mouth every 6 (six) hours as needed for Pain (scale 4-6). [facility] amoxicillin -clavulanat e 875-125 mg per tablet 08-14 00:00: 00 08-25 05:59 :00 No [id number] 1{tbl} Take 1 tablet by mouth 2 [...] ONCE, 1 dose, 08/10/20 at 2215, ROSELYN [facility] NaCl [...] 08-07 00:00: 00 09-17 00:00 :00 No [id number] 800mg Take 1 tablet by mouth every 8 (eight) hours. [facility] amoxicillin 500 mg capsule 08-07 00:00: 00 09-17 00:00 :00 No [id number] 500mg Take 1 capsule by mouth 3 (three) times daily. [facility] traMADoL 50 mg tablet 08-07 00:00: 09-17 00:00 :00 No [id number] 50mg Take 1 tablet by mouth every 6 (six) hours as needed for Pain (scale 4-6). Indication s: acute pain [facility] LORazepam (ATIVAN) tablet 1 mg 2019-07 03:15: 07-01 02:21 :00 No 1mg 1 mg, Oral, ONCE, 1 dose, Esperanza 06/30/20 at 2115, ROSELYN [facility] [...] 1 dose, Esperanza 06/30/20 at 191, Routine [facility] ketorolac (TORADOL) injection 30 mg 2019-07 01:15: 07-01 00:52 :00 No 30mg 30 mg, Slow IV Push, ONCE, 1 dose, Esperanza 06/30/20 at 1915, ROSELYN
Fa culty member approving Restricted medication : ABDIAS ROBERTSON [facility] albuterol 90 mcg/actuati on inhaler 2019-07 00:00: 04-07 00:00 :00 No [id number] 2{puff} Inhale 2 Puffs every 4 (four) hours as needed for Wheezing or Shortness of Breath. [facility] hydrOXYzine 25 mg tablet 2019-07 00:00: 09-17 00:00 :00 No [id number] 25mg Take 1 tablet by mouth every 6 (six) hours as needed for Anxiety. [facility] naproxen sodium (ANAPROX DS) 550 mg tablet 2019-07 00:00: 00 04-07 00:00 :00 No [id number] 550mg Take 1 tablet by mouth 2 (two) times daily with meals. [facility] methylPREDN ISolone (MEDROL, HEENA,) 4 mg tablets 2019-07 00:00: 09-17 00:00 :00 No [id number] Take by mouth SEE-INSTRU CTIONS. follow package directions [facility] methocarbam oL 500 mg tablet 2019-07 00:00: 00 07-04 05:59 :00 No [id number] 500mg Take 1 tablet by mouth 3 (three) times daily for 5 days. [facility] proMETHazin e (PHENERGAN) tablet 25 mg 2019-07 04:45: 00 06-13 03:37 :00 No 25mg 25 mg, Oral, ONCE, 1 dose, 06/12/20 at 2245, ROSELYN [facility] ondansetron (ZOFRAN (PF)) injection 4 mg 2019-07 03:00: 00 06-13 01:59 :00 No 4mg 4 mg, Slow IV Push, ONCE, 1 dose, 06/12/20 at 2100, ROSELYN [facility] ketorolac (TORADOL) injection 15 mg 2019-07 03:00: 00 06-13 01:58 :00 No 15mg 15 mg, Intramuscu lar, ONCE, 1 dose, 06/12/20 at 2100, ROSELYN
[facility] member approving Restricted medication : LEEANNE WISE [facility] morpHINE injection 4 mg 2019-07 01:30: 00 06-13 00:41 :00 No 4mg 4 mg, Slow IV Push, ONCE, 1 dose, 06/12/20 at 1930, STAT [facility] ondansetron (ZOFRAN (PF)) injection 4 mg 2019-07 00:45: 00 06-13 00:41 :00 No 4mg 4 mg, Slow IV Push, ONCE, 1 [facility] 1845[facility] 0.9% (NS) bolus infusion 1,000 mL 2019-07 23:45: 00 06-13 03:54 :00 No 1000mL at 999 mL/hr, 1,000 mL, IV Infusion, ONCE, 1 dose, Cornish 06/12/20 at 1745, [facility] dicyclomine 20 mg tablet 2019-07 00:00: 00 04-07 00:00 :00 No [id number] 20mg Take 1 tablet by mouth 4 (four) times daily as needed for Abdominal pain. [facility] proMETHazin e 25 mg tablet 2019-07 00:00: 00 09-17 00:00 :00 No [id number] 25mg Take 1 tablet by mouth every 6 (six) hours as needed for Nausea and Vomiting (N/V). [facility] famotidine 20 mg tablet 2019-07 00:00: 00 06-27 05:59 :00 No [id number] 20mg Take 1 tablet by mouth at bedtime for 14 days. [facility] haloperidol lactate (HALDOL) injection 2.5 mg 2019-07 01:00: 00 05-16 23:51 :00 No 2.5mg 2.5 mg, Intravenou s, ONCE, 1 dose, [facility] 05/16/20 at 1900, STAT [facility] NaCl 0.9% (NS) bolus infusion 1,000 mL 2019-07 23:45: 00 05-17 00:54 :00 No 1000mL at 999 mL/hr, 1,000 mL, IV Infusion, ONCE, 1 dose, 05/16/20 at 1745, ROSELYN [facility] proMETHazin e (PHENERGAN) 25 mg suppository 2019-07 00:00: 00 Yes [id number] 25mg Insert 1 Suppositor y into rectum every 4 (four) hours as needed for Nausea and Vomiting (N/V). [facility] ondansetron (ZOFRAN (PF)) injection 4 mg 2019-07 07:30: 00 05-15 06:26 :00 No 4mg 4 mg, Slow IV Push, ONCE, 1 dose, Cornish [facility]15[facility]20 [facility] 0130[facility] (OMNIPAQUE 350 BULK-100 mL) injection 120 mL 2019-07 07:00: 00 05-15 06:52 :00 No 120mL 120 mL, Intravenou s, ONCE, 1 dose, Cornish 05/15/20 at 0100, Routine [facility] ondansetron (ZOFRAN (PF)) injection 4 mg 2019-07 06:30: 00 05-15 05:52 :00 No 4mg 4 mg, Slow IV Push, ONCE, 1 dose, Cornish 05/15/20 at 0030, ROSELYN [facility] [...] Mrna-lnp, Zackery Protein, Pf Unknown Completed Kellee ybold - External Vital Signs Vital Name Observation Time Observation Value Comments S ourmargot Systolic blood pressure 2025-01-07 20:01:00 126 mm[Hg] Kellee Ariasybold - External Diastolic blood pressure 2025-01-07 20:01:00 82 mm[Hg] Kellee ybold - External Heart rate 2025-01-07 20:01:00 86 /min Kellee Marcio - External Body temperature 2025-01-07 20:01:00 36.61 Latanya Kellee Buckley - External Respiratory rate 2025-01-07 20:01:00 18 /min Kellee Buckley - External Body height 2025-01-07 20:01:00 157.5 cm Kellee Buckley - External Body weight 2025-01-07 20:01:00 105.688 kg Kellee Buckley - External BMI 2025-01-07 20:01:00 42.62 kg/m2 Kellee Buckley - External Oxygen saturation in Arterial blood by Pulse oximetry 2025-01-07 20:01:00 100 /min Kellee Buckley - External Systolic blood pressure 2024-12-16 02:02:00 158 mm[Hg] [facility] Diastolic blood pressure 2024-12-16 02:02:00 91 mm[Hg] [facility] Heart rate 2024-12-16 02:02:00 102 /min [facility] Body temperature 2024-12-16 02:02:00 37 Latanya [facility] Respiratory rate 2024-12-16 02:02:00 17 /min [facility] Body height 2024-12-16 02:02:00 157.5 cm [facility] Body weight 2024-12-16 02:02:00 108.863 kg [facility] BMI 2024-12-16 02:02:00 43.90 kg/m2 [facility] Oxygen saturation in Arterial blood by Pulse oximetry 2024-12-16 02:02:00 100 /min [facility] Systolic blood pressure 2024-12-14 21:48:00 136 mm[Hg] [facility] Diastolic blood pressure 2024-12-14 21:48:00 74 mm[Hg] [facility] Heart rate 2024-12-14 21:48:00 88 /min [facility] Body temperature 2024-12-14 21:48:00 36.67 Latanya [facility] Respiratory rate 2024-12-14 21:48:00 16 /min [facility] Oxygen saturation in Arterial blood by Pulse oximetry 2024-12-14 21:48:00 98 /min [facility] Body height 2024-12-14 18:27:00 157.5 cm [facility] Body weight 2024-12-14 18:27:00 108.863 kg [facility] BMI 2024-12-14 18:27:00 43.90 kg/m2 [facility] Height 2024-12-10 18:25:00 157.686643 cm [facility] Weight 2024-12-10 18:25:00 108.749482 kg [facility] BMI (Body Mass Index) 2024-12-10 18:25:00 43.9 kg/m2 [facility] Systolic blood pressure 2024-12-09 02:28:00 129 mm[Hg] [facility] Diastolic blood pressure 2024-12-09 02:28:00 74 mm[Hg] [facility] Heart rate 2024-12-09 02:28:00 88 /min [facility] Respiratory rate 2024-12-09 02:28:00 25 /min [facility] Oxygen saturation in Arterial blood by Pulse oximetry 2024-12-09 02:28:00 95 /min [facility] Body temperature 2024-12-09 00:53:00 36.61 Latanya [facility] Body height 2024-12-09 00:53:00 157.5 cm [facility] Body weight 2024-12-09 00:53:00 108.863 kg [facility] BMI 2024-12-09 00:53:00 43.90 kg/m2 [facility] Systolic blood pressure 2024-11-27 16:12:00 99 mm[Hg] [facility] Diastolic blood pressure 2024-11-27 16:12:00 54 mm[Hg] [facility] Heart rate 2024-11-27 16:12:00 60 /min [facility] Body temperature 2024-11-27 16:12:00 36.28 Latanya [facility] Respiratory rate 2024-11-27 16:12:00 18 /min [facility] Oxygen saturation in Arterial blood by Pulse oximetry 2024-11-27 16:12:00 96 /min [facility] Body height 2024-11-27 03:49:00 157.5 cm [facility] Body weight 2024-11-27 03:49:00 108.41 kg [facility] BMI 2024-11-27 03:49:00 43.71 kg/m2 [facility] Height 2024-11-15 13:18:00 157.535429 cm [facility] Weight 2024-11-15 13:18:00 108.380181 kg [facility] BMI (Body Mass Index) 2024-11-15 13:18:00 43.9 kg/m2 [facility] Systolic blood pressure 2024-11-15 01:43:00 165 mm[Hg] [facility] Diastolic blood pressure 2024-11-15 01:43:00 115 mm[Hg] [facility] Heart rate 2024-11-15 01:43:00 87 /min [facility] Body temperature 2024-11-15 01:43:00 36.72 Latanya [facility] Respiratory rate 2024-11-15 01:43:00 17 /min [facility] Body height 2024-11-15 01:43:00 157.5 cm [facility] Body weight 2024-11-15 01:43:00 108.41 kg [facility] BMI 2024-11-15 01:43:00 43.71 kg/m2 [facility] Oxygen saturation in Arterial blood by Pulse oximetry 2024-11-15 01:43:00 98 /min [facility] Body temperature 2024-11-11 05:30:00 37.17 Latanya [facility] [...] blood pressure 2024-10-23 15:10:00 82 mm[Hg] Kellee Seybold - External Heart rate 2024-10-23 15:10:00 79 /min Kellee ybold - External Body temperature 2024-10-23 15:10:00 36.72 Latanya Kellee Seybold - External Respiratory rate 2024-10-23 15:10:00 18 /min Kellee Seybold - External Body height 2024-10-23 15:10:00 157.5 cm Kellee Seybold - External Body weight 2024-10-23 15:10:00 97.433 kg Kellee Seybold - External BMI 2024-10-23 15:10:00 39.29 kg/m2 Kellee ybold - External Oxygen saturation in Arterial blood by Pulse oximetry 2024-10-23 15:10:00 97 /min Kellee Seybold - External BMI (Body Mass Index) 2024-10-14 05:00:00 45.0 kg/m2 [facility] Weight 2024-10-14 03:02:00 112.300 kg [facility] Height 2024-10-13 18:55:00 157.703878 cm [facility] Systolic blood pressure 2024-10-13 07:35:00 135 mm[Hg] [...] [facility] Height 2024-04-10 16:28:00 157.640211 cm [facility] Weight 2024-04-10 16:28:00 104.042405 kg [facility] BMI (Body Mass Index) 2024-04-10 16:28:00 42.1 kg/m2 [facility] Systolic blood pressure 2024-04-09 01:30:00 [...] Body temperature 2023-12-13 14:10:00 36.72 Latanya Kellee ybold - External Respiratory rate 2023-12-13 14:10:00 15 /min Kellee Floresold - External Body height 2023-12-13 14:10:00 157.5 cm Kellee ybold - External Body weight 2023-12-13 14:10:00 105.688 [...] blood pressure 2021-09-12 01:31:00 142 mm[Hg] [facility] Diastolic blood pressure 2021-09-12 01:31:00 80 mm[Hg] [...] Systolic blood pressure 2021-01-12 09:00:00 147 mm[Hg] [facility] Diastolic blood pressure 2021-01-12 09:00:00 [...] blood pressure 2020-08-11 04:00:00 106 mm[Hg] [facility] Diastolic blood pressure 2020-08-11 04:00:00 [...] [facility] Body temperature 2020-06-28 21:57:00 37.78 Ltaanya [facility] Respiratory rate 2020-06-28 [...] blood pressure 2020-05-17 00:00:00 137 mm[Hg] [facility] Diastolic blood pressure 2020-05-17 00:00:00 [...] blood pressure 2020-05-17 00:00:00 137 mm[Hg] [facility] Diastolic blood pressure 2020-05-17 00:00:00 93 mm[Hg] [facility] Body temperature 2020-05-16 23:17:00 37.61 Latanya [facility] Body weight 2020-05-16 23:17:00 97.07 kg [facility] BMI 2020-05-16 23:17:00 39.14 kg/m2 [facility] Systolic blood pressure 2020-05-15 08:50:00 131 mm[Hg] [facility] Diastolic blood pressure 2020-05-15 08:50:00 [...] blood pressure 2020-05-15 08:50:00 131 mm[Hg] [facility] Diastolic blood pressure 2020-05-15 08:50:00 [...] Time Performed Performing Clinician Source POCT TEST 2024-12-14 19:48:00 Kiran Rivero [facility] URINALYSIS 2024-12-14 19:46:00 Kiran Rivero [facility] LIPASE 2024-12-14 19:08:00 Kiran Rivero [facility] COMP. METABOLIC PANEL ([id number]) 2024-12-14 19:08:00 Kiran Rivero [facility] CBC WITH DIFF 2024-12-14 19:08:00 Kiran Rivero [facility] EKG (SCANNED DOCUMENTS) 2024-12-09 20:20:06 Doct or Unassigned, [place] [facility] TROPONIN I 2024-12-09 01:33:[address] [facility] COMP. METABOLIC PANEL ([id number]) 2024-12-09 01:33:00 Roberto Richards [facility] CBC WITH DIFF 2024-12-09 01:33:00 Maurice [facility] N-TERMINAL PRO-BNP 2024-12-09 01:33:00 Roberto Richards [facility] MAGNESIUM 2024-11-27 08:21:00 Alexx Kwok [facility] TROPONIN I 2024-11-27 08:21:00 Alexx Kwok [facility] BASIC METABOLIC PANEL (NA, K, CL, CO2, GLUCOSE, BUN, CREATININE, CA) 2024-11-27 08:21:00 Alexx Kwok [facility] LIPID PANEL ([id number])(TOTAL CHOLESTEROL, TRIGLYCERIDES, HDL) 2024-11-27 08:21:00 Alexx Kwok [facility] CBC WITH DIFF 2024-11-27 08:21:00 [facility] 2024-11-27 03:14:00 Alexx Kwok [facility] LIPASE 2024-11-26 23:54:00 Klaudia Narvaez [facility] MAGNESIUM 2024-11-26 23:54:00 Klaudia Narvaez [facility] TROPONIN I 2024-11-26 23:54:00 [facility]. METABOLIC PANEL ([id number]) 2024-11-26 23:54:00 Singer [facility] CBC WITH DIFF 2024-11-26 23:54:00 Singer [facility] N-TERMINAL PRO-BNP 2024-11-26 23:54:00 Singer [facility] XR CHEST 1 VW 2024-11-26 23:28:51 Singer [facility] HB ECG ROUTINE & RHYTHM STRIP 2024-11-26 22:53:55 Singer [facility] URINALYSIS 2024-11-15 01:45:00 Bushra Rios [facility] POCT TEST 2024-11-15 01:45:00 Rosario Rios ra [facility] CT ABDOMEN PELVIS W CONTRAST 2024-11-11 04:01:35 Bob Garcia [facility] POCT TEST 2024-11-11 02:26:00 Bob Garcia [facility] LIPASE 2024-11-11 02:23:00 Jose [facility] COMP. METABOLIC PANEL ([id number]) 2024-11-11 02:23:00 Bob Garcia [facility] CBC WITH DIFF 2024-11-11 02:23:00 Bob Garcia [facility] URINALYSIS 2024-11-11 02:23:00 Bob Garcia [facility] MAGNESIUM 2024-11-04 09:46:00 Quincy'Corinna Gee [facility] BASIC METABOLIC PANEL (NA, K, CL, CO2, GLUCOSE, BUN, CREATININE, CA) 2024-11-04 09:46:00 Quincy'Jean Carlos Gee [facility] CBC WITH DIFF 2024-11-04 09:46:00 Corinna Cowan [facility] MAGNESIUM 2024-11-04 09:46:00 Corinna Cowan [facility] BASIC METABOLIC PANEL (NA, K, CL, CO2, GLUCOSE, BUN, CREATININE, CA) 2024-11-04 09:46:00 Jean Carlos Cowan [facility] CBC WITH DIFF 2024-11-04 09:46:00 Corinna Cowan [facility] CATH PROCEDURE LOG 2024-11-03 20:05:03 SullyRosario rockwell U r [facility] CATH PROCEDURE LOG 2024-11-03 20:05:03 Sully, Rikauja U r [facility] CARDIAC CATHETERIZATION 2024-11-03 19:40:00 Sully, uja Ur [facility] CARDIAC CATHETERIZATION 2024-11-03 19:40:00 Sully, uja Ur [facility] CARDIAC CATHETERIZATION 2024-11-03 19:40:00 Sully, uja Ur [facility] CARDIAC CATHETERIZATION 2024-11-03 19:40:00 Sully, uja Ur [facility] CARDIAC CATHETERIZATION 2024-11-03 19:40:00 Sully, uja Ur [facility] CARDIAC CATHETERIZATION 2024-11-03 19:40:00 Sully, [facility] ACTIVATED PARTIAL THRMPLAS MARCIO 2024-11-03 14:13:00 Kylah [facility] ACTIVATED PARTIAL THRMPLAS MARCIO 2024-11-03 14:13:00 [facility] 2024-11-03 11:08:00 Corinna Cowan [facility] BASIC METABOLIC PANEL (NA, K, CL, CO2, GLUCOSE, BUN, CREATININE, CA) 2024-11-03 11:08:00 Jean Carlos Cowan [facility] MAGNESIUM 2024-11-03 11:08:00 Corinna Cowan [facility] BASIC METABOLIC PANEL (NA, K, CL, CO2, GLUCOSE, BUN, CREATININE, CA) 2024-11-03 11:08:00 Jean Carlos Cowan [facility] CBC WITH DIFF 2024-11-03 09:45:00 Corinna Cowan [facility] CBC WITH DIFF 2024-11-03 09:45:[address] Corinna Cow[address] [facility] ACTIVATED PARTIAL THRMPLAS MARCIO 2024-11-03 07:43:00 Ovfrankie, [facility] ACTIVATED PARTIAL THRMPLAS MARCIO 2024-11-03 07:43:00 Ovfrankie, [facility] ACTIVATED PARTIAL THRMPLAS MARCIO 2024-11-03 00:54:00 Oville, [facility] ACTIVATED PARTIAL THRMPLAS MARCIO 2024-11-03 00:54:00 Ovfrankie, [facility] HB ECG ROUTINE & RHYTHM STRIP 2024-11-02 21:49:21 Rosario Virk [facility] ACTIVATED PARTIAL THRMPLAS MARCIO 2024-11-02 14:41:00 Ovfrankie, [facility] ACTIVATED PARTIAL THRMPLAS MARCIO 2024-11-02 14:41:00 yKlah, [facility] MAGNESIUM 2024-11-02 08:35:00 Hussain [facility] BASIC METABOLIC PANEL (NA, K, CL, CO2, GLUCOSE, BUN, CREATININE, CA) 2024-11-02 08:35:00 Hussain [facility] CBC WITH DIFF 2024-11-02 08:35:00 Hussain [facility] ACTIVATED PARTIAL THRMPLAS MARCIO 2024-11-02 08:35:00 Kylah [facility] MAGNESIUM 2024-11-02 08:35:00 Brant [facility] BASIC METABOLIC PANEL (NA, K, CL, CO2, GLUCOSE, BUN, CREATININE, CA) 2024-11-02 08:35:00 Hussain [facility] CBC WITH DIFF 2024-11-02 08:35:00 Brant [facility] ACTIVATED PARTIAL THRMPLAS MARCIO 2024-11-02 08:35:00 Kylah [facility] MRSA / MSSA SCREEN BY PCRDUKE 2024-11-02 02:11:00 Hussain [facility] MRSA / MSSA SCREEN BY PCR, [facility] 2024-11-02 02:11:00 Hussain [facility] PHOSPHORUS 2024-11-02 02:08:00 Brantt [facility] TROPONIN I 2024-11-02 02:08:00 Brantt, [facility] ACTIVATED PARTIAL THRMPLAS MARCIO 2024-11-02 02:08:00 [facility] 2024-11-02 02:08:00 Brantt [facility] TROPONIN I 2024-11-02 02:08:00 Brantt, [facility] ACTIVATED PARTIAL THRMPLAS MARCIO 2024-11-02 02:08:00 Kylah [facility] HB ECG ROUTINE & RHYTHM STRIP 2024-11-01 23:29:25 Hussain [facility] HB ECG ROUTINE & RHYTHM STRIP 2024-11-01 23:29:25 Hussain [facility] URINALYSIS 2024-11-01 19:35:00 Susie Brewer [facility] URINE CULTURE 2024-11-01 19:35:00 Susie Brewer [facility] URINALYSIS 2024-11-01 19:35:00 Susie Brewer [facility] URINE CULTURE 2024-11-01 19:35:00 Susie Brewer [facility] PROTHROMBIN TIME / INR 2024-11-01 19:34:00 Parmjit Montero [facility] ACTIVATED PARTIAL THRMPLAS MARCIO 2024-11-01 19:34:00 [facility] 2024-11-01 19:34:00 Parmjit [facility] ACTIVATED PARTIAL THRMPLAS MARCIO 2024-11-01 19:34:00 Kylah [facility] TRANSTHORACIC ECHO (TTE) COMPLETE W/ CONTRAST 2024-11-01 13:44:00 Mary Michelle [facility] TRANSTHORACIC ECHO (TTE) COMPLETE W/ CONTRAST 2024-11-01 13:44:00 Viviana [facility] TROPONIN I 2024-11-01 13:26:00 Viviana [facility] THYROID STIMULATING HORMONE 2024-11-01 13:26:00 Hussain Farnaz [facility] LIPID PANEL ([id number])(TOTAL CHOLESTEROL, TRIGLYCERIDES, HDL) 2024-11-01 13:26:00 Ntaasha Hernandes [facility] N-TERMINAL PRO-BNP 2024-11-01 13:26:00 Natasha Hernandes [facility] TROPONIN I 2024-11-01 13:26:00 Viviana [facility] THYROID STIMULATING HORMONE 2024-11-01 13:26:00 Hussain [facility] LIPID PANEL ([id number])(TOTAL CHOLESTEROL, TRIGLYCERIDES, HDL) 2024-11-01 13:26:00 Natasha Hernandes [facility] N-TERMINAL PRO-BNP 2024-11-01 13:26:00 Natasha Hernandes [facility] INFLUENZA A/B RSV COVID NAAT 2024-11-01 09:35:00 Viviana [facility] LAB ONLY COVID INTERPRETATION 2024-11-01 09:35:00 Viviana [facility] INFLUENZA A/B RSV COVID NAAT 2024-11-01 09:35:00 Viviana [facility] LAB ONLY COVID INTERPRETATION 2024-11-01 09:35:00 Viviana [facility] TROPONIN I 2024-11-01 07:17:00 Viviana [facility] BASIC METABOLIC PANEL (NA, K, CL, CO2, GLUCOSE, BUN, CREATININE, CA) 2024-11-01 07:17:00 Viviana [facility] CBC WITH DIFF 2024-11-01 07:17:00 Viviana [facility] GLYCOSYLATED HEMOGLOBIN (A1C) 2024-11-01 07:17:00 Natasha Hernandes [facility] PROCALCITONIN 2024-11-01 07:17:00 Viviana [facility] TROPONIN I 2024-11-01 07:17:00 Viviana [facility] BASIC METABOLIC PANEL (NA, K, CL, CO2, GLUCOSE, BUN, CREATININE, CA) 2024-11-01 07:17:00 Viviana [facility] CBC WITH DIFF 2024-11-01 07:17:00 Viviana [facility] GLYCOSYLATED HEMOGLOBIN (A1C) 2024-11-01 07:17:00 Natasha Hernandes [facility] PROCALCITONIN 2024-11-01 07:17[facility]00 [facility] CHEST 1 VW 2024-11-01 03:19:58 Bob Garcia [facility] XR CHEST 1 VW 2024-11-01 03:19:58 Bob Garcia [facility] LIPASE 2024-11-01 02:53:00 Bob Garcia [facility] TROPONIN I 2024-11-01 02:53:00 Bob Garcia [facility] COMP. METABOLIC PANEL ([id number]) 2024-11-01 02:53:00 Bob Garcia [facility] CBC WITH DIFF 2024-11-01 02:53:00 Bob Garcia [facility] LIPASE 2024-11-01 02:53:00 Bob Garcia [facility] TROPONIN I 2024-11-01 02:53:00 Bob Garcia [facility] COMP. METABOLIC PANEL ([id number]) 2024-11-01 02:53:00 Bob Garcia [facility] CBC WITH DIFF 2024-11-01 02:53:00 Bob Garcia [facility] HB ECG ROUTINE & RHYTHM STRIP 2024-11-01 02:32:05 Bob Garcia [facility] HB ECG ROUTINE & RHYTHM STRIP 2024-11-01 02:32:05 Bob Garcia [facility] CT ABDOMEN PELVIS W CONTRAST 2024-10-24 03:31:17 Juanjose Barker [facility] LIPASE 2024-10-24 01:34:00 Juanjose [facility] COMP. METABOLIC PANEL ([id number]) 2024-10-24 01:34:00 Juanjose Barker [facility] CBC WITH DIFF 2024-10-24 01:34:[address] [facility] URINALYSIS 2024-10-24 01:34:00 Juanjose Barker [facility] TROPONIN I 2024-10-13 06:39:00 Bob Garcia [facility] LIPASE 2024-10-13 04:20:00 [facility]24-10-13 04:20:00 Bob Garcia [facility] COMP. METABOLIC PANEL ([id number]) 2024-10-13 04:20:00 Bob Garcia [facility] CBC WITH DIFF 2024-10-13 04:20:00 Bob Garcia [facility] N-TERMINAL PRO-BNP 2024-10-13 04:20:00 Bob Garcia [facility] POCT TEST 2024-10-13 03:46:00 Bob Garcia [facility] URINALYSIS 2024-10-13 03:39:00 Bob Garcia [facility] URINE DRUG (IMMUNOASSAY) - COMPREHENSIVE DRUG SCREEN 2024-07-19 06:11:00 Saleem Edward [facility] URINALYSIS 2024-07-19 06:11:00 Saleem Edward [facility] CT CHEST PULMONARY ANGIOGRAM 2024-07-19 05:46:40 Saleem Edward [facility] MAGNESIUM 2024-07-19 05:08:[address] [facility] TROPONIN I 2024-07-19 05:08:00 [facility] COMP. METABOLIC PANEL ([id number]) 2024-07-19 05:08:00 Saleem Edward Eleni [facility] CBC WITH DIFF 2024-07-19 05:08:00 Saleem Edward [facility] INFLUENZA A/B RSV COVID NAAT 2024-07-19 05:08:00 Saleem Edward Eleni [facility] N-TERMINAL PRO-BNP 2024-07-19 05:08:00 Saleem Edward [facility] CT ABDOMEN PELVIS W CONTRAST 2024-07-04 05:47:25 [facility] 2024-07-04 05:33:00 Ross Garcia [facility] LIPASE 2024-07-04 03:23:[address] [facility] COMP. METABOLIC PANEL ([id number]) 2024-07-04 03:23:00 [facility] CBC WITH DIFF 2024-07-04 03:23:00 Sandy Garcia [facility] URINALYSIS 2024-07-04 03:23:[address] [facility] CT ABDOMEN PELVIS W CONTRAST 2024-06-15 05:33:59 Sandy Garcia [facility] URINALYSIS 2024-06-15 04:18:00 Sandy Garcia [facility] LIPASE 2024-06-15 04:14:[address] [facility] TEST, SERUM 2024-06-15 04:14:00 Laney Garcia [facility] TROPONIN I 2024-06-15 04:14:[address] [facility] COMP. METABOLIC PANEL ([id number]) 2024-06-15 04:14:00 Sandy Garcia [facility] CBC WITH DIFF 2024-06-15 04:14:00 Sandy Garcia [facility] TROPONIN I 2024-06-07 07:19:00 Bob Garcia [facility] XR CHEST 1 VW 2024-06-07 05:38:37 Bob Garcia [facility] POCT TEST 2024-06-07 05:19:00 Bob Garcia [facility] URINE DRUG (IMMUNOASSAY) - COMPREHENSIVE DRUG SCREEN 2024-06-07 05:18:00 Bob Garcia [facility] TROPONIN I 2024-06-07 04:10:00 Bob Garcia [facility] COMP. METABOLIC PANEL ([id number]) 2024-06-07 04:10:00 Bob Garcia [facility] CBC WITH DIFF 2024-06-07 04:10:00 Bob Garcia [facility] CT HEAD WO CONTRAST 2024-05-19 18:22:43 Rafal Wright [facility] XR ELBOW <3 VW RIGHT 2024-05-18 02:32:12 Tammy Barrera [facility] XR FOREARM 2 VW RIGHT 2024-05-18 02:32:12 Tammy Moralez [facility] XR HAND 3+ VW RIGHT 2024-05-18 02:32:12 Tammy Casanova Radha [facility] CT CERVICAL SPINE WO CONTRAST 2024-05-18 02:11:45 Tammy Roy Radha [facility] CT MAXILLOFACIAL/MANDIBLE WO CONTRAST 2024-05-18 02:11:45 Tammy Roy [facility] POCT TEST 2024-05-08 02:00:00 Saleem Edward [facility] LIPASE 2024-05-08 00:31:00 Saleem Edward [facility] MAGNESIUM 2024-05-08 00:31:[address] [facility] TROPONIN I 2024-05-08 00:31:00 Saleem Edward [facility] COMP. METABOLIC PANEL ([id number]) 2024-05-08 00:31:00 Saleem Edward [facility] CBC WITH DIFF 2024-05-08 00:31:00 Saleem Edward [facility] URINALYSIS 2024-05-08 00:31:00 Saleem Edward Eleni [facility] CT ABDOMEN PELVIS WO CONTRAST 2024-04-08 23:45:15 Jacque Rojo [facility] POCT TEST 2024-04-08 23:01:00 Judy Rojo [facility] LIPASE 2024-04-08 22:47:00 [facility] METABOLIC PANEL ([id number]) 2024-04-08 22:47:00 Jacque Rojo [facility] CBC WITH DIFF 2024-04-08 22:47:00 Sophie Rojoherine [facility] URINALYSIS 2024-04-08 22:47:00 Florentino [facility] CT ABDOMEN PELVIS W CONTRAST 2023-10-11 04:08:24 Bob Garcia [facility] POCT TEST 2023-10-11 03:40:00 Bob Garcia [facility] LIPASE 2023-10-11 03:25:00 Bob Garcia [facility] COMP. METABOLIC PANEL ([id number]) 2023-10-11 03:25:00 Bob Garcia [facility] CBC WITH DIFF 2023-10-11 03:25:00 Bob Garcia [facility] URINALYSIS 2023-10-11 03:25:00 Bob Garcia [facility] XR KUB 2023-07-02 03:34:07 Roberto Richards [facility] POCT TEST 2023-07-02 02:30:00 Alberta Richards [facility] LIPASE 2023-07-02 02:05:00 Roberto Richards [facility] COMP. METABOLIC PANEL ([id number]) 2023-07-02 02:05:00 Roberto Richards [facility] CBC WITH DIFF 2023-07-02 02:05:00 Roberto Richards [facility] URINALYSIS 2023-07-02 02:05:00 Roberto Richards [facility] URINE DRUG (IMMUNOASSAY) - COMPREHENSIVE DRUG SCREEN W/O REFLEX 2023-07-02 02:05:00 Roberto Richards [facility] CONSENT/REFUSAL FOR DIAGNOSIS AND TREATMENT 2023-07-02 01:43:05 Doctor Unassigned, Boyden [facility] LIPASE 2023-05-09 22:47:00 Klaudia Narvaez [facility] COMP. METABOLIC PANEL ([id number]) 2023-05-09 22:47:00 Klaudia Narvaez [facility] CBC WITH DIFF 2023-05-09 22:47:00 Klaudia Narvaez [facility] CONSENT/REFUSAL FOR DIAGNOSIS AND TREATMENT 2023-05-09 22:32:48 Doctor Unassigned, Boyden [facility] CT ABDOMEN PELVIS W CONTRAST 2023-04-30 23:47:56 Klaudia Narveaz [facility] COMP. METABOLIC PANEL ([id number]) 2023-04-30 23:08:00 Klaudia Narvaez [facility] CBC WITH DIFF 2023-04-30 23:08:00 Klaudia Narvaez [facility] POCT TEST 2023-04-30 22:59:00 Jaquan Narvaez [facility] URINALYSIS 2023-04-30 22:57:[address] [facility] CONSENT/REFUSAL FOR DIAGNOSIS AND TREATMENT 2023-04-30 22:14:38 Doctor Unassigned, Boyden [facility] XR ABDOMEN ACUTE SERIES 2023-04-17 02:13:44 Do minal Richards [facility] POCT TEST 2023-04-17 02:11:00 Alberta Richards [facility] LIPASE 2023-04-17 02:04:00 Roberto Richards [facility] TROPONIN I 2023-04-17 02:04:[address] [facility] COMP. METABOLIC PANEL ([id number]) 2023-04-17 02:04:00 Roberto Richards [facility] CBC WITH DIFF 2023-04-17 02:04:00 Roberto Richards [facility] PROTHROMBIN TIME / INR 2023-04-17 02:04:00 Richard Richards [facility] ACTIVATED PARTIAL THRMPLAS MARCIO 2023-04-17 02:04:00 Roberto Richards [facility] URINALYSIS 2023-04-17 02:04:00 Roberto Richards [facility] N-TERMINAL PRO-BNP 2023-04-17 02:04:00 Roberto Richards [facility] URINE DRUG (IMMUNOASSAY) - COMPREHENSIVE DRUG SCREEN W/O REFLEX 2023-04-17 02:04:00 Roberto Richards [facility] CONSENT/REFUSAL FOR DIAGNOSIS AND TREATMENT 2023-04-17 01:22:36 Doctor Unassigned, Boy[place] [facility] URINALYSIS 2023-04-09 01:02:00 Saleem Edward [facility] LIPASE 2023-04-08 23:15:00 Saleem Edward [facility] MAGNESIUM 2023-04-08 23:15:00 Saleem Edward [facility] TROPONIN I 2023-04-08 23:15:[address] [facility] COMP. METABOLIC PANEL ([id number]) 2023-04-08 23:15:00 Saleem Edward [facility] CBC WITH DIFF 2023-04-08 23:15:00 Saleem Edward [facility] CONSENT/REFUSAL FOR DIAGNOSIS AND TREATMENT 2023-04-08 21:57:42 Doctor Unassigned, Boy[place] [facility] CT ABDOMEN PELVIS W CONTRAST 2023-03-10 03:38:58 Roberto Richards [facility] POCT TEST 2023-03-10 02:51:00 Alberta Richards [facility] URINALYSIS 2023-03-10 01:49:00 Roberto Richards [facility] LIPASE 2023-03-10 01:46:00 Roberto Richards [facility] COMP. METABOLIC PANEL ([id number]) 2023-03-10 01:46:00 Roberto Richards [facility] CBC WITH DIFF 2023-03-10 01:46:00 Roberto Richards [facility] CONSENT/REFUSAL FOR DIAGNOSIS AND TREATMENT 2023-03-10 01:36:24 Doctor Unassigned, Boyden [facility] CONSENT/REFUSAL FOR DIAGNOSIS AND TREATMENT 2023-03-10 01:14:40 Doctor Unassigned, Boyden [facility] CT ABDOMEN PELVIS W CONTRAST 2023-03-02 05:16:35 Bob Garcia [facility] POCT TEST 2023-03-02 03:26:00 Bob Garcia [facility] LIPASE 2023-03-02 03:23:00 Jose Msrita [facility] COMP. METABOLIC PANEL ([id number]) 2023-03-02 03:23:00 Bob Garcia [facility] CBC WITH DIFF 2023-03-02 03:23:00 Bob Garcia [facility] URINALYSIS 2023-03-02 03:23:00 Bob Garcia [facility] CONSENT/REFUSAL FOR DIAGNOSIS AND TREATMENT 2023-03-02 00:22:44 Doctor Unassigned, Boyden [facility] CONSENT/REFUSAL FOR DIAGNOSIS AND TREATMENT 2023-02-18 03:44:46 Doctor Unassigned, Boyden [facility] LIPASE 2023-02-17 09:28:00 Zay [facility] HEPATIC FUNCTION PANEL ([id number]) (ALB,T.PRO,BILI T,BU/BC,ALT,AST,ALK PHOS) 2023-02-17 09:28:00 Zay Montero [facility] BASIC METABOLIC PANEL (NA, K, CL, CO2, GLUCOSE, BUN, CREATININE, CA) 2023-02-17 09:28:00 Zay Montero [facility] CBC WITH DIFF 2023-02-17 09:28:00 Kylah Zay [facility] LIPASE 2023-02-16 18:24:00 Zay Montero [facility] HEPATIC FUNCTION PANEL ([id number]) (ALB,T.PRO,BILI T,BU/BC,ALT,AST,ALK PHOS) 2023-02-16 18:24:00 Kylah [facility] BASIC METABOLIC PANEL (NA, K, CL, CO2, GLUCOSE, BUN, CREATININE, CA) 2023-02-16 18:24:00 Kylah [facility] CBC WITH DIFF 2023-02-16 18:23:00 Kylah Zay [facility] CT ABDOMEN PELVIS W CONTRAST 2023-02-15 23:29:00 Leeanne Wise [facility] LIPASE 2023-02-15 21:45:00 Leeanne Wise [facility] COMP. METABOLIC PANEL ([id number]) 2023-02-15 21:45:00 Leeanne Wise [facility] CBC WITH DIFF 2023-02-15 21:45:00 Leeanne Wise [facility] D-DIMER 2023-02-15 19:55:00 Leeanne Wise [facility] URINALYSIS 2023-02-15 19:50:00 Leeanne Wise [facility] RAPID INFLUENZA A/B 2023-02-15 19:50:00 Leeanne Wise [facility] COVID-19 (ID NOW RAPID TESTING) 2023-02-15 19:50:00 Leeanne Wise [facility] XR CHEST 1 VW 2023-02-15 19:38:00 Leeanne Wise [facility] ASSIGNMENT OF BENEFITS 2023-02-15 19:26:58 Docto r Unassigned, Boyden [facility] HB ECG ROUTINE & RHYTHM STRIP 2023-02-15 19:07:40 Leeanne Wise [facility] NOTICE OF PRIVACY PRACTICES 2023-02-15 18:24:07 Doctor Unassigned, Boyden [facility] CONSENT/REFUSAL FOR DIAGNOSIS AND TREATMENT 2023-02-15 18:23:04 Doctor Unassigned, Boyden [facility] TROPONIN I 2022-01-10 00:32:00 Melida Longoria [facility] TROPONIN I 2022-01-09 22:17:00 Melida Longoria [facility] BASIC METABOLIC PANEL (NA, K, CL, CO2, GLUCOSE, BUN, CREATININE, CA) 2022-01-09 22:17:00 Melida Longoria [facility] CBC WITH DIFF 2022-01-09 22:17:00 Melida Longoria [facility] N-TERMINAL PRO-BNP 2022-01-09 22:17:00 Melida Longoria [facility] XR CHEST 1 VW 2022-01-09 22:11:00 Melida Longoria [facility] CONSENT/REFUSAL FOR DIAGNOSIS AND TREATMENT 2022-01-09 21:34:15 Doctor Unassigned, Boyden [facility] TROPONIN I 2021-12-14 05:39:00 Wil Mcqueen [facility] XR CHEST 1 2021-12-14 04:39:00 Wil Mcqueen [facility] POCT TEST 2021-12-14 04:20:00 Wil Mcqueen [facility] URINALYSIS 2021-12-14 03:57:00 Wil Mcqueen [facility] LIPASE 2021-12-14 03:43:00 Wil Mcqueen [facility] TROPONIN I 2021-12-14 03:43:00 Wil Mcqueen [facility] FREE T4 2021-12-14 03:43:00 Wil Mcqueen [facility] THYROID STIMULATING HORMONE 2021-12-14 03:43:00 Wil Mcqeuen [facility] COMP. METABOLIC PANEL ([id number]) 2021-12-14 03:43:00 Wil Mcqueen [facility] CBC WITH DIFF 2021-12-14 03:43:[address] [facility] 2021-12-14 03:43:00 Wil Mcqueen [facility] CONSENT/REFUSAL FOR DIAGNOSIS AND TREATMENT 2021-12-14 02:58:21 Doctor Unassigned, Boyden [facility] TROPONIN I 2021-11-12 03:04:00 Apple Wang [facility] POCT TEST 2021-11-12 02:56:00 Tra Wang [facility] URINE DRUG (IMMUNOASSAY) - COMPREHENSIVE DRUG SCREEN 2021-11-12 02:30:00 Apple Wang [facility] URINALYSIS 2021-11-12 02:30:00 Apple Wang [facility] XR CHEST 2 VW 2021-11-12 01:45:03 Apple Wang [facility] LIPASE 2021-11-12 01:34:00 Apple Wang [facility] TROPONIN I 2021-11-12 01:34:00 Apple Wang [facility] COMP. METABOLIC PANEL ([id number]) 2021-11-12 01:34:00 Apple Wang [facility] CBC WITH DIFF 2021-11-12 01:34:00 Apple Wang [facility] N-TERMINAL PRO-BNP 2021-11-12 01:34:00 Mckinley Wang [facility] CONSENT/REFUSAL FOR DIAGNOSIS AND TREATMENT 2021-11-12 00:36:34 Doctor Unassigned, [place] [facility] CT ABDOMEN PELVIS W CONTRAST 2021-09-12 02:49:43 Apple Wang [facility] COVID-19 (ID NOW RAPID TESTING) 2021-09-12 02:23:00 Apple Wang [facility] POCT TEST 2021-09-12 02:21:00 Tra Wang [facility] POCT TEST 2021-09-12 01:45:00 Bob Garcia [facility] URINALYSIS 2021-09-12 01:43:00 Bob Garcia [facility] LIPASE 2021-09-12 01:40:00 Bob Garcia [facility] COMP. METABOLIC PANEL ([id number]) 2021-09-12 01:40:00 Bob Garcia [facility] CBC WITH DIFF 2021-09-12 01:40:00 Bob Garcia [facility] CONSENT/REFUSAL FOR DIAGNOSIS AND TREATMENT 2021-09-12 01:26:55 Doctor Unassigned, Boyden [facility] XR LUMBAR SPINE 1 VW 2021-08-15 07:03:00 Angeles Garcia i [facility] URINALYSIS 2021-08-15 06:35:00 Bob Garcia [facility] POCT TEST 2021-08-15 06:35:00 Bob Garcia [facility] NOTICE OF PRIVACY PRACTICES 2021-08-15 06:01:56 Doctor Unassigned, Boyden [facility] CONSENT/REFUSAL FOR DIAGNOSIS AND TREATMENT 2021-08-15 05:25:54 Doctor Unassigned, Boyden [facility] TROPONIN I 2021-05-28 07:50:00 Cem Choi [facility] D-DIMER 2021-05-28 07:05:00 Cem Choi [facility] XR CHEST 2 VW 2021-05-28 05:46:00 [facility] 2021-05-28 05:32:00 Cem Choi [facility] LIPASE 2021-05-28 05:29:00 Cem Choi [facility] TROPONIN I 2021-05-28 05:29:00 Cem Choi [facility] COMP. METABOLIC PANEL ([id number]) 2021-05-28 05:29:00 Cem Choi [facility] CBC WITH DIFF 2021-05-28 05:29:00 Cem [facility] N-TERMINAL PRO-BNP 2021-05-28 05:29:00 Cem Choi [facility] COVID-19 (ID NOW RAPID TESTING) 2021-05-28 05:29:[facility] 2021-04-08 10:01:00 Apple Page [facility] BASIC METABOLIC PANEL (NA, K, CL, CO2, GLUCOSE, BUN, CREATININE, CA) 2021-04-08 10:01:00 Apple Page [facility] CBC WITH DIFF 2021-04-08 10:01:00 Apple Page [facility] TROPONIN I 2021-04-08 04:12:00 Apple Page [facility] XR CHEST 1 VW 2021-04-07 22:33:33 Roberto Richards [facility] LIPASE 2021-04-07 21:52:00 Roberto Richards [facility] MAGNESIUM 2021-04-07 21:52:00 Apple Page [facility] TROPONIN I 2021-04-07 21:52:00 Roberto Richards [facility] THYROID STIMULATING HORMONE 2021-04-07 21:52:00 Apple Page [facility] COMP. METABOLIC PANEL ([id number]) 2021-04-07 21:52:00 Roberto Richards [facility] LIPID PANEL ([id number])(TOTAL CHOLESTEROL, TRIGLYCERIDES, HDL) 2021-04-07 21:52:00 Apple Page [facility] CBC WITH DIFF 2021-04-07 21:52:00 Roberto Richards [facility] GLYCOSYLATED HEMOGLOBIN (A1C) 2021-04-07 21:52:00 Apple Page [facility] PROTHROMBIN TIME / INR 2021-04-07 21:52:00 Richard Richards [facility] ACTIVATED PARTIAL THRMPLAS MARCIO 2021-04-07 21:52:00 Roberto Richards [facility] N-TERMINAL PRO-BNP 2021-04-07 21:52:00 Roberto Richards [facility] COVID-19 (ID NOW RAPID TESTING) 2021-04-07 21:51:00 Roberto Richards [facility] HB ECG ROUTINE & RHYTHM STRIP 2021-04-07 21:38:41 Roberto Richards [facility] CONSENT/REFUSAL FOR DIAGNOSIS AND TREATMENT 2021-04-07 21:17:47 Doctor Unassigned, [place] [facility] CT ABDOMEN PELVIS WO CONTRAST 2021-01-12 08:10:17 Singer [facility] POCT TEST 2021-01-12 08:02:00 Jaquan Narvaez [facility] URINALYSIS 2021-01-12 07:58:00 Singer [facility] COMP. METABOLIC PANEL ([id number]) 2021-01-12 07:56:00 Singer [facility] CBC WITH DIFF 2021-01-12 07:56:00 Singer [facility] TROPONIN I 2020-12-11 00:47:00 [facility] 2020-12-10 22:40:57 Bal Hassan [facility] POCT TEST 2020-12-10 22:32:00 Suzanna Hassan [facility] URINALYSIS 2020-12-10 22:30:00 [facility] 2020-12-10 22:24:00 Mo [facility] TROPONIN I 2020-12-10 22:24:00 [facility] ([id number]) (ALB,T.PRO,BILI T,BU/BC,ALT,AST,ALK PHOS) 2020-12-10 22:24:00 Mo [facility] BASIC METABOLIC PANEL (NA, K, CL, CO2, GLUCOSE, BUN, CREATININE, CA) 2020-12-10 22:24:00 Bal Hassan [facility] CBC WITH DIFF 2020-12-10 22:24:00 Bal Hassan [facility] D-DIMER 2020-12-10 22:24:00 Bal Hassan [facility] N-TERMINAL PRO-BNP 2020-12-10 22:24:00 Mirtha Hassan [facility] POCT TEST 2020-12-04 21:18[facility]00 [facility] 2020-12-04 21:17:00 [facility] LIPASE 2020-12-04 20:20:00 [facility] TROPONIN I 2020-12-04 20:20:00 [facility] HEPATIC FUNCTION PANEL ([id number]) (ALB,T.PRO,BILI T,BU/BC,ALT,AST,ALK PHOS) 2020-12-04 20:20:00 [facility] BASIC METABOLIC PANEL (NA, K, CL, CO2, GLUCOSE, BUN, CREATININE, CA) 2020-12-04 20:20:00 [facility] CBC WITH DIFF 2020-12-04 20:20:[address] [facility] XR CHEST 1 VW 2020-12-04 20:16:54 [facility]+ VW LEFT 2020-12-04 20:16:54 [facility]REFUSAL FOR DIAGNOSIS AND TREATMENT 2020-12-04 19:43:45 Doctor Unassigned, [place] [facility] XR CHEST 1 VW 2020-11-04 02:24:02 Bob Garcia [facility] URINE DRUG (IMMUNOASSAY) - 4 ER PANEL 2020-11-04 02:19:00 Bob Garcia [facility] URINALYSIS 2020-11-04 02:19:00 Bob Garcia [facility] LIPASE 2020-11-04 02:16:00 Bob Garcia [facility] TROPONIN I 2020-11-04 02:16:00 Bob Garcia [facility] COMP. METABOLIC PANEL ([id number]) 2020-11-04 02:16:00 Bob Garcia [facility] CBC WITH DIFF 2020-11-04 02:16:00 Bob Garcia [facility] PROTHROMBIN TIME / INR 2020-11-04 02:16:00 Lucia Garcia [facility] ACTIVATED PARTIAL THRMPLAS MARCIO 2020-11-04 02:16:00 Bob Garcia [facility] CONSENT/REFUSAL FOR DIAGNOSIS AND TREATMENT 2020-11-04 01:11:16 Doctor Unassigned, [place] [facility] XR CHEST 1 VW 2020-09-17 17:32:21 Leeanne Wise [facility] RAPID STREP SCREEN FOR GROUP A 2020-09-17 16:31:00 Leeanne [facility] COVID-19 (ID NOW RAPID TESTING) 2020-09-17 16:31:00 Leeanne Wise [facility] NOTICE OF PRIVACY PRACTICES 2020-09-17 15:47:38 Doctor Unassigned, [place] [facility] CONSENT/REFUSAL FOR DIAGNOSIS AND TREATMENT 2020-09-17 15:47:07 Doctor Unassigned, [place] [facility] XR FOREARM 2 VW LEFT 2020-09-07 06:59:53 Saleem Edward [facility] XR HAND 3+ VW LEFT 2020-09-07 06:59:53 Saleem Edward [facility] NOTICE OF PRIVACY PRACTICES 2020-09-07 06:06:09 Doctor Unassigned, [place] [facility] CONSENT/REFUSAL FOR DIAGNOSIS AND TREATMENT 2020-09-07 06:03:10 Doctor Unassigned, [place] [facility] CT ABDOMEN PELVIS W CONTRAST 2020-08-28 09:16:08 Bob Garcia [facility] POCT TEST 2020-08-28 08:45:00 Bob Garcia [facility] URINALYSIS 2020-08-28 08:43:00 Bob Garcia [facility] LIPASE 2020-08-28 08:09:00 Bob Garcia [facility] COMP. METABOLIC PANEL (80522) 2020-08-28 08:09:00 Bob Garcia [facility] CBC WITH DIFF 2020-08-28 08:09:00 Bob [facility] 1 VW 2020-08-14 18:10:03 Best [facility] LIPASE 2020-08-14 17:58:00 [facility] TROPONIN I 2020-08-14 17:58:00 [facility] COMP. METABOLIC PANEL (80019) 2020-08-14 17:58:00 Best Taylor [facility] CBC WITH DIFF 2020-08-14 17:58:00 Best [facility] URINALYSIS 2020-08-14 17:58:00 [facility] LACTIC ACID WHOLE BLOOD 2020-08-14 17:58:00 Sophie Taylor [facility] ADC / LCC - DRUG SCREEN TRIAGE 2020-08-14 17:58:00 Best Taylor [facility] CONSENT/REFUSAL FOR DIAGNOSIS AND TREATMENT 2020-08-14 17:33:16 Doctor Unassigned, [place] [facility] CT ABDOMEN PELVIS WO CONTRAST 2020-08-11 04:11:07 Best Taylor [facility] XR CHEST 1 VW 2020-08-11 03:56:48 Best [facility] POCT TEST 2020-08-11 03:10:00 Best Taylor [facility] BLOOD CULTURE SCREEN 2020-08-11 02:01:00 Best Taylor [facility] BLOOD CULTURE SCREEN 2020-08-11 01:45:00 Best Taylor [facility] LIPASE 2020-08-11 01:45:00 Best Taylor [facility] TROPONIN I 2020-08-11 01:45:[address] [facility] HEPATIC FUNCTION PANEL (12087) (ALB,T.PRO,BILI T,BU/BC,ALT,AST,ALK PHOS) 2020-08-11 01:45:00 Best Taylor [facility] BASIC METABOLIC PANEL (NA, K, CL, CO2, GLUCOSE, BUN, CREATININE, CA) 2020-08-11 01:45:00 Best Taylor [facility] CBC WITH DIFF 2020-08-11 01:45:00 Best Taylor [facility] URINALYSIS 2020-08-11 01:45:00 [facility] LACTIC ACID WHOLE BLOOD 2020-08-11 01:45:00 Sophie Taylor [facility] COVID-19 (ID NOW RAPID TESTING) 2020-08-11 01:45:00 Best Taylor [facility] CONSENT/REFUSAL FOR DIAGNOSIS AND TREATMENT 2020-08-11 00:12:54 Doctor Unassigned, [place] [facility] XR FOREARM 2 VW LEFT 2020-08-07 14:03:06 [facility] COVID-19 (ID NOW RAPID TESTING) 2020-08-07 13:35:00 Roberto Richards [facility] NOTICE OF PRIVACY PRACTICES 2020-08-07 13:13:25 Doctor Unassigned, [place] [facility] CONSENT/REFUSAL FOR DIAGNOSIS AND TREATMENT 2020-08-07 13:11:06 Doctor Unassigned, [place] [facility] CONSENT/REFUSAL FOR DIAGNOSIS AND TREATMENT 2020-08-07 13:10:57 Doctor Unassigned, [place] [facility] TROPONIN I 2020-07-01 02:03:00 Abdias [facility] POCT TEST 2020-07-01 00:51:00 Abdias Robertson [facility] URINALYSIS 2020-07-01 00:48:00 Abdias [facility] CBC WITH DIFF 2020-07-01 00:12:00 Abdias Robertson [facility] EXTRA TUBE LT. BLUE 2020-07-01 00:12:00 Abdias Robertson [facility] LIPASE 2020-07-01 00:09:00 Abdias [facility] TROPONIN I 2020-07-01 00:09:00 Abdias [facility] BASIC METABOLIC PANEL (NA, K, CL, CO2, GLUCOSE, BUN, CREATININE, CA) 2020-07-01 00:09:00 [facility] ADC,CLC OR LCC ONLY - INFLUENZA A & B DIRECT ANTIGEN 2020-07-01 00:09:00 Jessica [facility] N-TERMINAL PRO-BNP 2020-07-01 00:09:00 [facility] XR CHEST 1 VW 2020-07-01 00:07:07 Abdias Robertson [facility] NOTICE OF PRIVACY PRACTICES 2020-06-30 23:27:46 Doctor Unassigned, [place] [facility] CT CERVICAL SPINE WO CONTRAST 2020-06-28 23:12:00 Klaudia Narvaez [facility] CONSENT/REFUSAL FOR DIAGNOSIS AND TREATMENT 2020-06-28 21:52:44 Doctor Unassigned, [place] [facility] POCT TEST 2020-06-13 01:50:00 Leeanne Wise [facility] XR CHEST 1 VW 2020-06-13 01:18:17 Leeanne Wise [facility] URINALYSIS 2020-06-13 00:34:00 Leeanne Wise [facility] COVID-19 (ID NOW RAPID TESTING) 2020-06-13 00:34:00 Leeanne Wise [facility] LIPASE 2020-06-13 00:33:00 Leeanne Wise [facility] TROPONIN I 2020-06-13 00:33:00 Leeanne Wise [facility] HEPATIC FUNCTION PANEL (31243) (ALB,T.PRO,BILI T,BU/BC,ALT,AST,ALK PHOS) 2020-06-13 00:33:00 Leeanne Wise [facility] BASIC METABOLIC PANEL (NA, K, CL, CO2, GLUCOSE, BUN, CREATININE, CA) 2020-06-13 00:33:00 Leeanne Wise [facility] CBC WITH DIFF 2020-06-13 00:33:00 Leeanne Wise [facility] D-DIMER 2020-06-13 00:33:00 Leeanne Wise [facility] CONSENT/REFUSAL FOR DIAGNOSIS AND TREATMENT 2020-06-12 23:27:48 Doctor Unassigned, [place] [facility] COVID-19 (ID NOW RAPID TESTING) 2020-05-16 23:50:00 Bushra Rios [facility] LIPASE 2020-05-16 23:21:00 [facility] HE[facility] FUNCTION PANEL (80459) (ALB,T.PRO,BILI T,BU/BC,ALT,AST,ALK PHOS) 2020-05-16 23:21:00 Bushra Rios [facility] BASIC METABOLIC PANEL (NA, K, CL, CO2, GLUCOSE, BUN, CREATININE, CA) 2020-05-16 23:21:00 Bushra Rios [facility] CBC WITH DIFF 2020-05-16 23:21:00 [facility] 2020-05-15 07:42:00 Roberto Richards [facility] CT ABDOMEN PELVIS W CONTRAST 2020-05-15 06:56:53 Roberto Richards [facility] CT HEAD WO CONTRAST 2020-05-15 06:56:27 Alberta Richards [facility] POCT TEST 2020-05-15 05:53:00 Alberta Richards [facility] LIPASE 2020-05-15 05:52:00 Roberto Richards [facility] HEPATIC FUNCTION PANEL (63125) (ALB,T.PRO,BILI T,BU/BC,ALT,AST,ALK PHOS) 2020-05-15 05:52:00 Roberto Richards [facility] BASIC METABOLIC PANEL (NA, K, CL, CO2, GLUCOSE, BUN, CREATININE, CA) 2020-05-15 05:52:00 Roberto Richards [facility] ETHANOL 2020-05-15 05:52:00 Roberto Richards [facility] CBC WITH DIFF 2020-05-15 05:52:00 [facility] / [facility] 2020-05-15 05:52:00 Richard Richards [facility] ACTIVATED PARTIAL THRMPLAS MARCIO 2020-05-15 05:52:00 Roberto Richards [facility] URINALYSIS 2020-05-15 05:52:00 Roberto Richards [facility] ADC / LCC - DRUG SCREEN TRIAGE 2020-05-15 05:52:00 Roberto Richards [facility] NOTICE OF PRIVACY PRACTICES 2020-05-15 05:12:38 Doctor Unassigned, [place] [facility] CONSENT/REFUSAL FOR DIAGNOSIS AND TREATMENT 2020-05-15 05:12:26 Doctor Unassigned, [place] [facility] Encounters Start Date/Time End Date/Time Encounter Type Admission Type Attending [facility] Care Facility Care Department Encounter ID Source 2025-02-15 10:00:00 2025-02-15 10:00:00 Outpatient CHRISTINA PAGE [id number] Kellee azra 2025-01-22 10:20:00 2025-01-22 10:20:00 Outpatient CYNTHIA ROMEO [id number] [facility] 2025-01-16 00:00:00 2025-01-16 00:00:00 Outpatient RIDDHI MONTES [id number] [facility] 2025-01-07 15:00:00 2025-01-07 15:00:00 Outpatient VAHE DURAND [id number] [facility] 2025-01-07 00:00:00 2025-01-07 00:00:00 Outpatient NAY ALMONTE KELLEE [id number] [facility] 2024-12-20 00:00:00 2024-12-20 00:00:00 Outpatient RIDDHI MONTES KELLEE DORMAN [id number] [facility] 2024-12-17 10:00:00 2024-12-17 10:00:00 Outpatient NEO VALADEZ KELLEE DORMAN [id number] [facility] 2024-12-16 13:30:00 2024-12-16 13:30:00 Outpatient RIDDHI MONTES KELLEE DORMAN [id number] [facility] 2024-12-15 21:04:00 2024-12-15 22:54:00 Emergency X BOB GARCIA WAKILI [facility] ERT [id number] [facility] 2024-12-14 13:31:00 2024-12-14 16:50:00 Emergency Kiran Rivero [facility] 1..840.114 350.1.13.10 4.2.7.2.686 [id number] [facility] 2024-12-10 18:18:00 2024-12-10 21:28:00 Emergency ER ARELIS KERN [facility] [id number] [facility] 2024-12-10 18:18:00 2024-12-10 21:28:00 Departed Emergency Room [facility] [id number] 78 [facility] 2024-12-09 00:00:00 2024-12-10 02:04:16 Orders Only Doctor Unassigned, [place] Doctor Unassigned, [place] [facility] 1..840.114 350.1.13.10 4.2.7.2.686 [id number] [facility] 2024-12-08 19:58:00 2024-12-08 21:51:00 Emergency X ROBERTO RICHARDS DONNELL [facility] [id number] [facility] 2024-12-02 13:30:00 2024-12-02 13:30:00 Outpatient RIDDHI MONTES [id number] [facility] 2024-12-02 09:30:00 2024-12-02 09:30:00 Outpatient CATHY STRICKLAND [id number] [facility] 2024-12-02 00:00:00 2024-12-02 00:00:00 Outpatient MD KELLEE CHOI [id number] [facility] 2024-12-02 00:00:00 2024-12-02 00:00:00 Outpatient RIDDHI MONTES [id number] [facility] 2024-12-01 00:00:00 2024-12-01 09:53:20 Transition of Care Piper Mercedes Antoinette [facility] 1.2.840.114 350.1.13.10 4.2.7.2.686 [id number] [facility] 2024-11-26 17:54:00 2024-11-27 13:31:00 Hospital Encounter X [facility]ARL [facility] [id number] [facility] 2024-11-27 00:00:00 2024-11-27 00:00:00 Outpatient KELLEE DORMAN [id number] [facility] 2024-11-20 00:00:00 2024-11-20 00:00:00 Outpatient RIDDHI MONTES [id number] [facility] 2024-11-18 13:15:00 2024-11-18 13:15:00 Outpatient TATIANNA MAN [id number] [facility] 2024-11-16 00:00:00 2024-11-16 00:00:00 Outpatient RIDDHI MONTES [id number] [facility] 2024-11-15 11:45:00 2024-11-15 15:15:00 Emergency ER SHERIDAN MCMANUS [facility] [id number] [facility] 2024-11-15 11:45:00 2024-11-15 15:15:00 Departed Emergency Room [facility] [id number] 52 [facility] 2024-11-15 10:15:00 2024-11-15 10:15:00 Outpatient NELI SHULTZ [id number] [facility] 2024-11-14 20:45:00 2024-11-14 22:18:00 Emergency X BUSHRA RIOS SANDRA [facility] ERT [id number] [facility] 2024-11-14 20:45:00 2024-11-14 22:18:00 Emergency Bushra Rios [facility] 1.2.840.114 350.1.13.10 4.2.7.2.686 [id number] [facility] 2024-11-14 00:00:00 2024-11-14 00:00:00 Outpatient RIDDHI MONTES [id number] [facility] 2024-11-10 19:56:00 2024-11-11 01:04:00 Emergency X BOB GARCIA WAKILI [facility] ERT [id number] [facility] 2024-11-10 19:56:00 2024-11-11 01:04:00 Emergency Bob Garcia [facility] .2.840.114 350.1.13.10 4.2.7.2.686 [id number] [facility] 2024-11-10 13:30:00 2024-11-10 13:30:00 Outpatient RIDDHI MONTES [id number] [facility] 2024-11-10 13:30:00 2024-11-10 13:30:00 Outpatient RIDDHI MONTES KELLEE DORMAN [id number] [facility] 2024-11-05 00:00:00 2024-11-05 09:33:29 Transition of Care Piper Mercedes Antoinette [facility] 1.2.840.114 350.1.13.10 4.2.7.2.686 [id number] [facility] 2024-10-31 21:29:00 2024-11-04 15:00:00 Inpatient X KAUR SANDRA [facility] [id number] [facility] 2024-10-31 21:29:00 2024-11-04 15:00:00 Hospital Encounter Bob Garcia Jelani Al Hemyari, Bashar Khan, Rizwan [facility] 1.2.840.114 350.1.13.10 4.2.7.2.686 [id number] [facility] 2024-11-03 18:20:00 2024-11-03 19:20:00 Surgery Dane Jurado [facility] 1.2.840.114 350.1.13.10 4.2.7.2.686 [id number] [facility] 2024-11-02 00:00:00 2024-11-02 00:00:00 Outpatient KELLEE DORMAN [id number] [facility] 2024-11-02 00:00:00 2024-11-02 00:00:00 Outpatient KELLEE DORMAN [id number] [facility] 2024-10-28 14:15:00 2024-10-28 14:15:00 Outpatient TATIANNA MAN [id number] [facility] 2024-10-26 11:30:00 2024-10-26 11:30:00 Outpatient FLORINDA REYES [id number] [facility] 2024-10-23 20:18:00 2024-10-23 23:54:00 Emergency X NAKIAUT, JUANJOSE EDNA, JUANJOSE [facility] ERT [id number] [facility] 2024-10-23 20:18:00 2024-10-23 23:54:00 Emergency Juanjose Barker J [facility] 1..840.114 350.1.13.10 4.2.7.2.686 [id number] [facility] 2024-10-23 10:30:00 2024-10-23 10:30:00 Outpatient RIDDHI MONTES [id number] [facility] 2024-10-19 00:00:00 2024-10-19 00:00:00 Outpatient RIDDHI MONTES [id number] [facility] 2024-10-13 23:15:00 2024-10-14 19:39:00 Inpatient ER SELENA [facility] [id number] [facility] 2024-10-13 23:15:00 2024-10-14 19:39:00 Discharged Inpatient (obs) [facility] [id number] [facility] 2024-10-14 00:00:00 2024-10-14 00:00:00 Outpatient KELLEE DORMAN [id number] [facility] 2024-10-12 22:30:00 2024-10-13 02:45:00 Emergency X BOB GARCIA WAKILI [facility] ERT [id number] [facility] 2024-10-12 22:30:00 2024-10-13 02:45:00 Emergency Bob Garcia [facility] ..840.114 350.1.13.10 4.2.7.2.686 [id number] [facility] 2024-09-23 13:30:00 2024-09-23 13:30:00 Outpatient GISELLE OSORIO KELLEE DORMAN [id number] [facility] 2024-09-23 00:00:00 2024-09-23 00:00:00 Outpatient KELLEE DORMAN [id number] [facility] 2024-09-17 00:00:00 2024-09-17 00:00:00 Outpatient MD KELLEE CHOI [id number] [facility] 2024-09-15 11:15:00 2024-09-15 11:15:00 Outpatient KELLEE DORMAN [id number] [facility] Sey[facility] 2024-09-15 10:45:00 2024-09-15 10:45:00 Outpatient KELLEE DORMAN [id number] [facility] 2024-09-15 10:15:00 2024-09-15 10:15:00 Outpatient KELLEE DORMAN [id number] [facility] 2024-09-15 07:30:00 2024-09-15 07:30:00 Outpatient KELLEE DORMAN [id number] [facility] 2024-09-15 00:00:00 2024-09-15 00:00:00 Outpatient JOGISELLE DIETRICH KELLEE DORMAN [id number] [facility] 2024-09-06 00:00:00 2024-09-06 00:00:00 Outpatient RIDDHI MONTES [id number] [facility] 2024-09-01 00:00:00 2024-09-01 00:00:00 Outpatient RIDDHI MONTES [id number] [facility] 2024-08-27 00:00:00 2024-08-27 00:00:00 Outpatient CNORADO SMITH [id number] [facility] 2024-08-20 16:45:00 2024-08-20 16:45:00 Outpatient JÚNIOR FARRELL [id number] [facility] 2024-08-18 10:00:00 2024-08-18 10:00:00 Outpatient RIDDHI MONTES [id number] [facility] 2024-08-05 15:30:00 2024-08-05 15:30:00 Outpatient SMITH, CONRADOELENITA DORMAN [id number] [facility] 2024-08-03 00:00:00 2024-08-03 00:00:00 Outpatient JYOTI RIDDHI KELLEE DORMAN [id number] [facility] 2024-07-18 22:48:00 2024-07-19 01:24:00 Emergency X Saleem EDWARD K [facility] ERT [id number] [facility] 2024-07-18 22:48:00 2024-07-19 01:24:00 Emergency Saleem Edward [facility] 1.2.840.114 350.1.13.10 4.2.7.2.686 [id number] [facility] 2024-07-15 00:00:00 2024-07-15 00:00:00 Outpatient JYOTI RIDDHI KELLEE DORMAN [id number] [facility] 2024-07-10 00:00:00 2024-07-10 00:00:00 Outpatient JYOTI RIDDHI DORMAN [id number] [facility] 2024-07-09 00:00:00 2024-07-09 00:00:00 Outpatient RADIOLOGY, DEPTrice DORMAN [id number] [facility] 2024-07-09 00:00:00 2024-07-09 00:00:00 Outpatient RADIOLOGY, DEPT KELLEE DORMAN [id number] [facility] 2024-07-07 00:00:00 2024-07-07 00:00:00 Outpatient MD KELLEE CHOI [id number] [facility] 2024-07-06 07:00:00 2024-07-06 07:00:00 Outpatient KELLEE DORMAN [id number] [facility] 2024-07-06 00:00:00 2024-07-06 00:00:00 Outpatient GISELLE OSORIO [id number] [facility] 2024-07-03 19:56:00 2024-07-04 01:32:00 Emergency X VINCENT, SHINTA VINCENT, SHINTA [facility] ERT [id number] [facility] 2024-07-03 19:56:00 2024-07-04 01:32:00 Emergency Vincpelon, Shinta [facility] 1.2.840.114 350.1.13.10 4.2.7.2.686 [id number] [facility] 2024-06-21 02:04:00 2024-06-21 02:59:00 Emergency X VINCENT, SHINTA VINCPELON, SHINTA [facility] ERT [id number] [facility] 2024-06-21 02:04:00 2024-06-21 02:59:00 Emergency Vincpelon, Jeffta [facility] 1.2.840.114 350.1.13.10 4.2.7.2.686 [id number] [facility] 2024-06-20 00:00:00 2024-06-20 00:00:00 Outpatient RIDDHI MONTES [id number] [facility] 2024-06-18 00:00:00 2024-06-18 00:00:00 Outpatient GISELLE OSORIO [id number] [facility] 2024-06-17 15:30:00 2024-06-17 15:30:00 Outpatient KELLEE DORMAN [id number] [facility] 2024-06-14 21:28:00 2024-06-15 00:28:00 Emergency X VINCPELON, SHINTA VINCPELON, SHINTA [facility] ERT [id number] [facility] 2024-06-14 21:28:00 2024-06-15 00:28:00 Emergency VincJeff birdta [facility] 1.2.840.114 350.1.13.10 4.2.7.2.686 [id number] [facility] 2024-06-06 21:56:00 2024-06-07 02:40:00 Emergency X BOB GARCIA WAKILI [facility] ERT [id number] [facility] 2024-06-06 21:56:00 2024-06-07 02:40:00 Emergency Bob Garcia [facility] 1.2840.114 350.1.13.10 4.2.7.2.686 [id number] [facility] 2024-06-02 00:00:00 2024-06-02 00:00:00 Outpatient RIDDHI MONTES [id number] [facility] 2024-05-28 13:00:00 2024-05-28 13:00:00 Outpatient GISELLE OSORIO [id number] [facility] 2024-05-20 00:00:00 2024-05-20 00:00:00 Outpatient RIDDHI MONTES [id number] [facility] 2024-05-19 11:44:00 2024-05-19 13:35:00 Emergency X RAFAL WRIGHT [facility] ERT [id number] [facility] 2024-05-19 11:44:00 2024-05-19 13:35:00 Emergency GiaRafal gamboa [facility] .840.114 350.1.13.10 4.2.7.2.686 [id number] [facility] 2024-05-18 11:15:00 2024-05-18 11:15:00 Outpatient LAB90 KELLEE DORMAN [id number] [facility] 2024-05-18 10:30:00 2024-05-18 10:30:00 Outpatient RIDDHI MONETS [id number] [facility] 2024-05-17 18:30:00 2024-05-17 22:19:00 Emergency Tammy Roy [facility] 1.2.840.114 350.1.13.10 4.2.7.2.686 [id number] [facility] 2024-05-13 18:04:00 2024-05-13 20:42:00 Emergency ER ARELIS KERN [facility] [id number] [facility] 2024-05-12 00:00:00 2024-05-12 00:00:00 Outpatient RIDDHI MONTES [id number] [facility] 2024-05-07 18:47:00 2024-05-07 21:36:00 Emergency Saleem Edward [facility] 1..840.114 350.1.13.10 4.2.7.2.686 [id number] [facility] 2024-04-22 09:15:00 2024-04-22 09:15:00 Outpatient FARTUN GILLESPIE [id number] [facility] 2024-04-15 10:30:00 2024-04-15 10:30:00 Outpatient MARLINLee RIDDHI DORMAN [id number] [facility] 2024-04-12 00:00:00 2024-04-12 00:00:00 Outpatient MARLINLee RIDDHI DORMAN [id number] [facility] 2024-04-10 16:20:00 2024-04-10 18:53:00 Emergency ER TAVARES MG JR [facility] [id number] [facility] 2024-04-10 16:20:00 2024-04-10 18:53:00 Departed Emergency Room [facility] [id number] 85 [facility] 2024-04-08 17:37:00 2024-04-08 20:38:00 Emergency Jacque Rojo [facility] 1..840.114 350.1.13.10 4.2.7.2.686 [id number] [facility] 2024-04-08 00:00:00 2024-04-08 00:00:00 Outpatient HUNDL, RIDDHI KELLEE DORMAN [id number] [facility] 2024-03-12 00:00:00 2024-03-12 00:00:00 Outpatient HUNDL, RIDDHI DORMAN [id number] [facility] 2024-03-06 11:00:00 2024-03-06 11:00:00 Outpatient HUNDL, RIDDHI DORMAN [id number] [facility] 2024-02-06 11:00:00 2024-02-06 11:00:00 Outpatient JO, GISELLE KELLEE DORMAN [id number] [facility] 2024-02-06 10:40:00 2024-02-06 10:40:00 Outpatient KELLEE DORMAN [id number] [facility] 2024-02-06 00:00:00 2024-02-06 00:00:00 Outpatient HUNDL, RIDDHI DORMAN [id number] [facility] 2024-02-05 00:00:00 2024-02-05 00:00:00 Outpatient HUNDL, RIDDHI DORMAN [id number] [facility] 2024-01-14 09:30:00 2024-01-14 09:30:00 Outpatient HUNDL, RIDDHI DORMAN [id number] [facility] 2024-01-09 00:00:00 2024-01-09 00:00:00 Outpatient HUNDL, RIDDHI DORMAN [id number] Kellee Seybold 2024-01-06 00:00:00 2024-01-06 00:00:00 Outpatient HUNDL, RIDDHI DORMAN [id number] [facility] 2024-01-03 00:00:00 2024-01-03 00:00:00 Outpatient HUNDL, RIDDHI DORMAN [id number] Kellee Seybold 2024-01-02 14:00:00 2024-01-02 14:00:00 Outpatient HUNDL, RIDDHI DORMAN [id number] Kellee Buckley 2023-12-13 09:30:00 2023-12-13 09:30:00 Outpatient RIDDHI MONTES KELLEE [id number] Kellee Buckley 2023-12-09 00:00:00 2023-12-09 00:00:00 Outpatient RIDDHI MONTES KELLEE [id number] Kellee Buckley 2023-12-05 00:00:00 2023-12-05 00:00:00 Outpatient RIDDHI MONTES KELLEE [id number] Kellee Buckley 2023-12-03 11:45:00 2023-12-03 11:45:00 Outpatient LABGerman DORMAN KELLEE [id number] Kellee Buckley 2023-12-03 11:00:00 2023-12-03 11:00:00 Outpatient RIDDHI MONTES KELLEE [id number] Kellee Buckley 2023-11-26 00:00:00 2023-11-26 00:00:00 Outpatient RIDDHI MONTES KELLEE DORMAN [id number] Kellee Buckley 2023-10-31 00:00:00 2023-10-31 00:00:00 Outpatient COSMO ANDERSENROXANNE DORMAN [id number] Kellee Buckley 2023-10-31 00:00:00 2023-10-31 00:00:00 Outpatient COSMO DORMAN KELLEE [id number] Kellee Buckley 2023-10-29 14:15:00 2023-10-29 14:15:00 Outpatient LAB90 KELLEE KELLEE [id number] Kellee [facility] 2023-10-29 13:30:00 2023-10-29 13:30:00 Outpatient RIDDHI MONTES KELLEE KELLEE [id number] [facility] 2023-10-10 21:31:00 2023-10-11 00:43:00 Emergency X BOB GARCIA [facility] ERT [id number] [facility] 2023-10-10 21:31:00 2023-10-11 00:43:00 Emergency Bob Garcia [facility] 1.2.840.114 350.1.13.10 4.2.7.2.686 [id number] [facility] 2023-08-31 18:02:00 2023-08-31 22:40:00 emergency [facility] [id number] 5eb [id number] 2023-08-31 18:02:00 2023-08-31 22:40:00 Emergency ER SHERIDAN MCMANUS [facility] [id number] [facility] 2023-07-01 19:50:00 2023-07-01 22:59:00 Emergency X RICHARD RICHARDSNELL [facility] ERT [id number] [facility] 2023-07-01 19:50:00 2023-07-01 22:59:00 Emergency Roberto Richards [facility] 1.2.840.114 350.1.13.10 4.2.7.2.686 [id number] 084 [id number] [facility] 2023-06-04 23:37:00 2023-06-06 13:30:00 observatio n encounter [facility] [id number] [facility] [id number] 2023-06-04 23:37:00 2023-06-06 13:30:00 Inpatient ER JOSIEMONICA RITESHLULU [facility] [id number] [facility] 2023-05-11 01:16:00 2023-05-13 17:04:00 observatio n encounter [facility] [id number] 2023-05-11 01:16:00 2023-05-13 17:04:00 Inpatient ER KLEBERVOLODYMYRRIDDHI [facility] [id number] [facility] 2023-05-10 21:48:00 2023-05-10 21:48:00 Emergency ER AN IRIZARRY [facility] [id number] [facility] 2023-05-09 17:40:00 2023-05-09 20:30:00 Emergency KLAUDIA MATA [facility] ERT [id number] [facility] 2023-05-09 17:40:00 2023-05-09 20:30:00 Emergency Klaudia Narvaez [facility] 1.2840.114 350.1.13.10 4.2.7.2.686 [id number] [facility] 2023-05-05 21:31:00 2023-05-06 03:15:00 emergency [facility] [id number] 5eb [id number] 2023-05-05 21:31:00 2023-05-06 03:15:00 Emergency ER SHERIDAN MCMANUS [facility] [id number] [facility] 2023-04-30 17:18:00 2023-04-30 21:20:00 Emergency KLAUDIA MATA [facility] ERT [id number] [facility] 2023-04-30 17:18:00 2023-04-30 21:20:00 Emergency Klaudia Narvaez [facility] 1.2840.114 350.1.13.10 4.2.7.2.686 [id number] [id number] [facility] 2023-04-16 20:40:00 2023-04-16 23:10:00 Emergency X ROBERTO RICHARDS [facility] ERT [id number] [facility] 2023-04-16 20:40:00 2023-04-16 23:10:00 Emergency Roberto Richards [facility] 1.2.840.114 350.1.13.10 4.2.7.2.686 [id number] [id number] [facility] 2023-04-08 17:28:00 2023-04-08 21:20:00 Emergency X Saleem EDWARD [facility] ERT [id number] [facility] 2023-04-08 17:28:00 2023-04-08 21:20:00 Emergency Saleem Edward [facility] 1.2.840.114 350.1.13.10 4.2.7.2.686 [id number] [id number] [facility] 2023-03-09 20:23:00 2023-03-10 00:20:00 Emergency X ROBERTO RICHARDS [facility] ERT [id number] [facility] 2023-03-09 20:23:00 2023-03-10 00:20:00 Emergency Roberto Richards [facility] 1.2.840.114 350.1.13.10 4.2.7.2.686 [id number] [id number] [facility] 2023-03-01 19:35:00 2023-03-02 01:35:00 Emergency X BOB GARCIA [facility] ERT [id number] [facility] 2023-03-01 19:35:00 2023-03-02 01:35:00 Emergency Bob Garcia [facility] 1.2.840.114 350.1.13.10 4.2.7.2.686 [id number] [id number] [facility] 2023-02-17 22:58:00 2023-02-18 02:22:00 Emergency X APPLE PADGETT [facility] ERT [id number] [facility] 2023-02-17 22:58:00 2023-02-18 02:22:00 Emergency Apple Padgett [facility] 1.2.840.114 350.1.13.10 4.2.7.2.686 [id number] [facility] 2023-02-15 13:46:00 2023-02-17 16:14:00 Outpatient X ZAY MONTERO [facility] ALTHEA [id number] [facility] 2023-02-15 13:46:00 2023-02-17 16:14:00 Emergency Leeanne Wise Jelani [facility] 1.2840.114 350.1.13.10 4.2.7.2.686 [id number] [facility] 2022-01-09 16:47:00 2022-01-09 20:28:00 Emergency X JOHANA MELIDA [facility] ERT [id number] [facility] 2022-01-09 16:47:00 2022-01-09 20:28:00 Emergency Melida Longoria [facility] 1.2840.114 350.1.13.10 4.2.7.2.686 [id number] 084 [id number] [facility] 2021-12-13 22:16:00 2021-12-14 02:28:00 Emergency X WIL MCQUEEN [facility] ERT [id number] [facility] 2021-12-13 22:16:00 2021-12-14 02:28:00 Emergency Wil Mcqueen [facility] 1.2840.114 350.1.13.10 4.2.7.2.686 [id number] 084 [id number] [facility] 2021-11-11 19:50:00 2021-11-11 23:17:00 Emergency X APPLE WANG [facility] ERT [id number] [facility] 2021-11-11 19:50:00 2021-11-11 23:17:00 Emergency Apple Wang F [facility] 1.2840.114 350.1.13.10 4.2.7.2.686 [id number] 084 [id number] [facility] 2021-11-11 00:00:00 2021-11-11 00:00:00 Orders Only Doctor Unassigned, [place] [facility] 1.284114 350.1.13.10 4.2.7.2.686 [id number] [facility] 2021-09-11 19:42:00 2021-09-11 23:02:00 Emergency X EDDIE WANGQuincy [facility] ERT [id number] [facility] 2021-09-11 19:42:00 2021-09-11 23:02:00 Emergency OralstacyEddiequincy Isaac [facility] 1.84.114 350.1.13.10 4.2.7.2.686 [id number] [id number] [facility] 2021-08-14 23:38:00 2021-08-15 02:29:00 Emergency X BOB GARCIA [facility] ERT [id number] [facility] 2021-08-14 23:38:00 2021-08-15 02:29:00 Emergency Bob Garcia [facility] 1.284.114 350.1.13.10 4.2.7.2.686 [id number] 084 [id number] [facility] 2021-05-27 23:23:00 2021-05-28 04:23:00 Emergency X CEM CHOI [facility] ERT [id number] [facility] 2021-05-27 23:23:00 2021-05-28 04:23:00 Emergency Cem Choi [facility] 1.284.114 350.1.13.10 4.2.7.2.686 [id number] 084 [id number] [facility] 2021-04-10 00:00:00 2021-04-10 00:00:00 Transition of Care Shelley Rosas 1.2.840.114 350.1.13.10 4.2.7.2.686 [id number] [facility] 2021-04-07 16:30:00 2021-04-08 17:45:00 Hospital Encounter Roberto Richards Jelani [facility] 1.2.840.114 350.1.13.10 4.2.7.2.686 [id number] [facility] 2021-04-07 16:18:00 2021-04-07 16:18:00 Emergency X [facility] ERT [id number] [facility] 2021-01-12 03:01:00 2021-01-12 04:56:00 Emergency Klaudia Narvaez [facility] 1.2.840.114 350.1.13.10 4.2.7.2.686 [id number] 084 [id number] [facility] 2021-01-12 03:01:00 2021-01-12 03:01:00 Emergency X KLAUDIA NARVAEZ [facility] ERT [id number] [facility] 2020-12-10 17:12:00 2020-12-10 21:14:00 Emergency HassanBal sidhu [facility] 1.2.840.114 350.1.13.10 4.2.7.2.686 [id number] [id number] [facility] 2020-12-10 17:12:00 2020-12-10 17:12:00 Emergency X DIDI HASSANANNE [facility] ERT [id number] [facility] 2020-12-04 14:50:00 2020-12-04 17:08:00 Emergency EbraTremaine kaplan [facility] 1.2.840.114 350.1.13.10 4.2.7.2.686 [id number] 084 [id number] [facility] 2020-12-04 14:50:00 2020-12-04 17:08:00 Emergency X EBRAHIM, RANIA [facility] ERT [id number] [facility] 2020-11-03 20:44:00 2020-11-03 23:34:00 Emergency DreLeeanne almonte [facility] 1.2.840.114 350.1.13.10 4.2.7.2.686 [id number] [id number] [facility] 2020-11-03 20:44:00 2020-11-03 23:34:00 Emergency X LEEANNE WISE [facility] ERT [id number] [facility] 2020-09-19 12:32:00 2020-09-19 14:15:00 Emergency ER MORA POLLOCK [facility] [id number] [facility] 2020-09-17 09:53:00 2020-09-17 11:55:00 Emergency DreLeeanne almonte [facility] 1.2.840.114 350.1.13.10 4.2.7.2.686 [id number] 084 [id number] [facility] 2020-09-17 09:53:00 2020-09-17 11:55:00 Emergency X LEEANNE WSIE [facility] ERT [id number] [facility] 2020-09-17 09:53:00 2020-09-17 11:55:00 Emergency Leeanne Wise [facility] 1.2.840.114 350.1.13.10 4.2.7.2.686 [id number] 084 [id number] 2020-09-07 00:37:00 2020-09-07 01:41:00 Emergency Saleem Edward [facility] 1.2.840.114 350.1.13.10 4.2.7.2.686 [id number] [id number] [facility] 2020-09-07 00:37:00 2020-09-07 01:41:00 Emergency X Saleem EDWARD [facility] ERT [id number] [facility] 2020-09-07 00:37:00 2020-09-07 01:41:00 Emergency Saleem Edward [facility] 1.2.840.114 350.1.13.10 4.2.7.2.686 [id number] [id number] 2020-09-07 00:00:00 2020-09-07 00:00:00 Orders Only Doctor Unassigned, [place] [facility] 1.2.840.114 350.1.13.10 4.2.7.2.686 [id number] [facility] 2020-09-07 00:00:00 2020-09-07 00:00:00 Orders Only Doctor Unassigned, [place] [facility] 1.2.840.114 350.1.13.10 4.2.7.2.686 [id number] 2020-08-28 01:59:00 2020-08-28 04:40:00 Emergency Bob Garcia [facility] 1.2.840.114 350.1.13.10 4.2.7.2.686 [id number] 084 [id number] [facility] 2020-08-28 01:59:00 2020-08-28 04:40:00 Emergency Bob Garcia [facility] 1.2.840.114 350.1.13.10 4.2.7.2.686 [id number] 084 [id number] 2020-08-28 01:59:00 2020-08-28 01:59:00 Emergency X BOB GARCIA [facility] ERT [id number] [facility] 2020-08-14 11:48:00 2020-08-14 13:42:00 Emergency Best Taylor Belle [facility] 1.2.840.114 350.1.13.10 4.2.7.2.686 [id number] 084 [id number] [facility] 2020-08-14 11:48:00 2020-08-14 13:42:00 Emergency Best Taylor [facility] 1.2.840.114 350.1.13.10 4.2.7.2.686 [id number] [id number] 2020-08-14 11:33:00 2020-08-14 11:33:00 Emergency BEST BORGES [facility] ERT [id number] [facility] 2020-08-10 18:35:00 2020-08-11 00:05:00 Emergency Best Taylor [facility] 1.2.840.114 350.1.13.10 4.2.7.2.686 [id number] 084 [id number] [facility] 2020-08-10 18:35:00 2020-08-11 00:05:00 Emergency BOB WAYNE [facility] ERT [id number] [facility] 2020-08-10 18:35:00 2020-08-11 00:05:00 Emergency Best Taylor [facility] 1.2.840.114 350.1.13.10 4.2.7.2.686 [id number] 084 [id number] 2020-08-07 07:19:00 2020-08-07 09:02:00 [facility] 1.2.840.114 350.1.13.10 4.2.7.2.686 [id number] 084 [id number] [facility] 2020-08-07 07:19:00 2020-08-07 09:02:00 [facility] 1.2.840.114 350.1.13.10 4.2.7.2.686 [id number] 084 [id number] 2020-08-07 07:12:00 2020-08-07 07:12:00 Emergency X [facility] ERT [id number] [facility] 2020-08-07 00:00:00 2020-08-07 00:00:00 Orders Only Doctor Unassigned, [place] [facility] 1.2.840.114 350.1.13.10 4.2.7.2.686 [id number] [id number] [facility] 2020-08-07 00:00:00 2020-08-07 00:00:00 Orders Only Doctor Unassigned, [place] [facility] 1.2.840.114 350.1.13.10 4.2.7.2.686 [id number] [id number] 2020-07-01 00:00:00 2020-07-01 00:00:00 Letter (Out) [facility] 1.2.840.114 350.1.13.10 4.2.7.2.686 [id number] [facility] 2020-07-01 00:00:00 2020-07-01 00:00:00 Letter (Out) [facility] 1.2.840.114 350.1.13.10 4.2.7.2.686 [id number] 019 [id number] 2020-06-30 17:46:00 2020-06-30 21:06:00 Emergency Abdias Robertson [facility] 1.2.840.114 350.1.13.10 4.2.7.2.686 [id number] [id number] [facility] 2020-06-30 17:46:00 2020-06-30 21:06:00 Emergency X ABDIAS ROBERTSON [facility] ERT [id number] [facility] 2020-06-30 17:46:00 2020-06-30 21:06:00 Emergency Abdias Robertson [facility] 1.2.840.114 350.1.13.10 4.2.7.2.686 [id number] [id number] 2020-06-28 16:00:00 2020-06-28 18:08:00 Emergency Klaudia Narvaez [facility] 1.2.840.114 350.1.13.10 4.2.7.2.686 [id number] 084 [id number] [facility] 2020-06-28 16:00:00 2020-06-28 18:08:00 Emergency Klaudia Narvaez [facility] 1.2.840.114 350.1.13.10 4.2.7.2.686 [id number] 084 [id number] 2020-06-28 16:00:00 2020-06-28 16:00:00 Emergency X KLAUDIA NARVAEZ [facility] [id number] [facility] 2020-06-14 00:00:00 2020-06-14 00:00:00 Telephone [facility] 1.2.840.114 350.1.13.10 4.2.7.2.686 [id number] [id number] [facility] 2020-06-14 00:00:00 2020-06-14 00:00:00 Telephone [facility] 1.2.840.114 350.1.13.10 4.2.7.2.686 [id number] 019 [id number] 2020-06-12 17:40:00 2020-06-12 22:05:00 Emergency Leeanne Wise [facility] 1.2.840.114 350.1.13.10 4.2.7.2.686 [id number] 084 [id number] [facility] 2020-06-12 17:40:00 2020-06-12 22:05:[address] [facility] 1.2.840.114 350.1.13.10 4.2.7.2.686 [id number] 084 [id number] 2020-06-12 17:28:00 2020-06-12 17:28:00 Emergency X [facility] ERT [id number] [facility] 2020-05-16 17:10:00 2020-05-16 19:01:00 Emergency Bushra Rios [facility] 1.2.840.114 350.1.13.10 4.2.7.2.686 [id number] [id number] [facility] 2020-05-16 17:10:00 2020-05-16 19:01:00 Emergency Bushra Rios [facility] 1.2.840.114 350.1.13.10 4.2.7.2.686 [id number] 084 [id number] 2020-05-16 17:10:00 2020-05-16 17:10:00 Emergency X BUSHRA RIOS [facility] ERT [id number] [facility] 2020-05-14 23:18:00 2020-05-15 02:54:00 Emergency Roberto Richards [facility] 1.2.840.114 350.1.13.10 4.2.7.2.686 [id number] 084 [id number] [facility] 2020-05-14 23:18:00 2020-05-15 02:54:00 Emergency Roberto Richards [facility] 1.2.840.114 350.1.13.10 4.2.7.2.686 [id number] 084 [id number] 2020-05-14 23:14:00 2020-05-14 23:14:00 Emergency X ROBERTO RICHARDS [facility] ERT [id number] [facility] 2009-07-18 05:35:00 2009-07-18 09:19:00 Emergency ER SINCERE FRANK [facility] [id number] [facility] 2008-10-08 09:55:00 2008-10-08 14:19:00 Emergency ER GUMARO ALVAREZ [facility] [id number] [facility] 2008-03-26 15:21:00 2008-03-26 18:08:00 Emergency ER NEIL WILKINS [facility] [id number] [facility] 2005-05-25 06:35:00 2005-05-25 06:35:00 Outpatient CATHERINE LISA BOCANEGRA [facility] [id number] [facility] 2005-05-16 21:57:00 2005-05-16 23:40:00 Emergency ER JW SOLORZANO [facility] [id number] [facility] 2005-04-24 18:49:00 2005-04-24 22:40:00 Emergency ER JW SOLORZANO [facility] [id number] [facility] 2004-12-27 20:30:00 2004-12-28 01:40:00 Emergency ER SANIA SIBLEY [facility] [id number] [facility] 2003-12-07 22:40:00 2003-12-08 02:48:00 Emergency ER GINA MARTIN [facility] [id number] [facility] 2003-12-06 13:57:00 2003-12-06 18:30:00 Emergency ER YIN RIOS [facility] [id number] [facility] 2003-08-31 19:43:00 2003-08-31 22:55:00 Emergency ER KIM GUMARO [facility] [id number] [facility] 2003-08-22 19:26:00 2003-08-22 22:10:00 Emergency ER ALBERTO CASTLE [facility] [id number] [facility] 2002-01-30 22:41:00 2002-01-31 01:29:00 Emergency ER ANTHONY SCHNEIDER [facility] [id number] [facility] 2001-10-28 09:15:00 2001-10-28 11:25:00 Emergency ER DARCIE MCKEON [facility] [id number] [facility] 2001-04-15 19:14:00 2001-04-15 23:10:00 Emergency ER ARLETTE ROBERT [facility] [id number] [facility] 2000-12-25 21:52:00 2000-12-26 00:15:00 Emergency ER GISELA RIOS [facility] [id number] [facility] 2000-12-23 18:51:00 2000-12-23 22:00:00 Emergency ER HUGO COFFMAN [facility] [id number] [facility] 1999-10-26 21:11:00 1999-10-27 00:20:00 Emergency ER JW SOLORZANO [facility] [id number] [facility] Results Test Description Test Time Test Comments Results Result [facility]03* Test Item Value Reference Range Interpretation Comme nts LIPASE (test code = 0164280768) 77 U/L 0-220 Lab Interpretation (test cod e = 09341-3) Normal [facility] [id number] 19:48:00* Test Item Value Reference Range Interpretation Comme nts POCT PREG (test code = 1605) Negative On board controls acceptable with C Line (test code = 3574) Yes Lab Interpretation (test cod e = 24022-8) [facility] WITH [id number] 19:40:20* Test Item Value Reference Range Interpretation Comme nts WBC (test code = 6690-2) 12.07 4.30-11.10 H RBC (test code = 789-8) 4.78 3.93-5.25 HGB (test code = 718-7) 12 g/dL 11.6-15.0 HCT (test code = 4544-3) 37.6 % 35.7-45.2 MCV (test code = 787-2) 78.7 fL 80.6-95.5 L MCH (test code = 785-6) 25.1 pg 25.9-32.8 L MCHC (test code = 786-4) 31.9 g/dL 31.6-35.1 RDW-SD (test code = 74333-6) 48.7 fL 39.0-49.9 RDW-CV (test code = 788-0) 17.2 % 12.0-15.5 H PLT (test code = 777-3) 444 166-358 H MPV (test code = 93217-2) 8.8 fL 9.5-12.9 L NRBC/100 WBC (test code = 1394396350) 0 0.0-10.0 NRBC x10^3 (test code = 2643122667) See_Comment [Automated messa ge] The system which generated this result transmitted reference range: 10*3/?L. The reference range was not used to interpret this result as normal/abnormal. GRAN MAT (NEUT) % (test code = 770-8) 70 % IMM GRAN % (test code = 1750897518) 0.4 % LYMPH % (test code = 736-9) 21.2 % MONO % (test code = 5905-5) 7 % EOS % (test code = 713-8) 1.2 % BASO % (test code = 706-2) 0.2 % GRAN MAT x10^3(ANC) (test code = 9656172290) 8.43 10*3/uL 1.88-7.09 H IMM GRAN x10^3 (test code = 1821557723) 0.05 10*3/uL 0.00-0.06 LYMPH x10^3 (test code = 731-0) 2.56 10*3/uL 1.32-3.29 MONO x10^3 (test code = 742-7) 0.85 10*3/uL 0.33-0.92 EOS x10^3 (test code = 711-2) 0.15 10*3/uL 0.03-0.39 BASO x10^3 (test code = 704-7) 0.03 10*3/uL 0.01-0.07 Lab Interpretation (test code = 63681-6) Abnormal [facility] or plasma cardiac troponin I panel by high sensitivity [id number] 21:02:00* Test Item Value Reference Range Interpretation Comme nts Troponin T High Sensitivity (test code = 60836-7) < 6.0 [facility]tr[facility]-proBNP lmbbnttlscx1434-18-06 19:10:00* Test Item Value Reference Range Interpretation Comme nts UA-Gdk-O-Type Natriuretic Pe ptide (test code = 088309353) 173 [facility] CtrSerum or plasma creatine kinase MB (CK-MB) measurement by immunoassay (mass/volume)2024-12-10 19:09:00* Test Item Value Reference Range Interpretation Comme nts Creatine Kinase MB (test cod e = 78165-5) < 1.0 [facility] OojJ-xzhcr8196-43-05 19:07:00* Test Item Value Reference Range Interpretation Comme nts D-Dimer (test code = 741989387) 227 [facility] CtrSerum or plasma glucose measurement (mass/volume) 2024-12-10 19:06:00* Test Item Value Reference Range Interpretation Comme nts Random Glucose (test code = 2345-7) 100 [facility] CtrSerum or plasma urea nitrogen measurement (mass/volume)2024-12-10 19:06:00* Test Item Value Reference Range Interpretation Comme nts Blood Urea Nitrogen (test co de = 3094-0) 10 [facility] [id number] 19:06:00* Test Item Value Reference Range Interpretation Comme nts Aspartate Amino Transf (AST/ SGOT) (test code = EAP3734) 13 [facility] CtrBilirubin hrcao0627-62-09 19:06:00* Test Item Value Reference Range Interpretation Comme nts Total Bilirubin (test code = CPR1922) < 0.2 [facility] CtrEstimated glomerular filtration rate (GFR) cyibeqigatqkp7116-72-62 19:06:00* Test Item Value Reference Range Interpretation Comme nts Glomerular Filtration Rate C alc (test code = 472559319) > 60.00 [facility] CtrBUN/creatinine fmuhv1645-89-77 19:06:00* Test Item Value Reference Range Interpretation Comme nts BUN/Creatinine Ratio (test c ode = 91699777) 20.8 [facility] [id number] 19:06:00* Test Item Value Reference Range Interpretation Comme nts Carbon Dioxide Level (test c ode = 92624311) 25 [facility] CtrAnion gap hmdothcesem4533-07-59 19:06:00* Test Item Value Reference Range Interpretation Comme nts Anion Gap (test code = 52241348) 13.6 [facility] CtrCalcium nnazh1086-46-27 19:06:00* Test Item Value Reference Range Interpretation Comme nts Calcium Level (test code = 44497423) 9.3 [facility] CtrGlobulin knm4291-36-40 19:06:00* Test Item Value Reference Range Interpretation Comme nts Globulin (test code = 808707754) 3.0 [facility] CtrALT (SGPT) ser/okov3654-22-54 19:06:00* Test Item Value Reference Range Interpretation Comme nts Alanine Aminotransferase (AL T/SGPT) (test code = 1742-6) 11 [facility] DpxQzpzdv5199-85-99 19:06:00* Test Item Value Reference Range Interpretation Comme nts Lipase (test code = 530003555) 28 [facility] CtrALP ser/tofk9228-08-94 19:06:00* Test Item Value Reference Range Interpretation Comme nts Total Alkaline Phosphatase ( test code = 6768-6) 84 [facility] CtrCreatine kinase bgqmsrynkbj9915-35-50 19:06:00* Test Item Value Reference Range Interpretation Comme nts Creatine Kinase (test code = 569472740) 35 [facility] CtrProthrombin rjkv3047-37-23 18:59:00* Test Item Value Reference Range Interpretation Comme nts Prothrombin Time (test code = 306745233) 10.3 [facility] CtrWhole blood INR nuuwsesnzrz5877-38-90 18:59:00* Test Item Value Reference Range Interpretation Comme nts Prothromb Time International Ratio (test code = 10726-8) 0.94 [facility]woodAct[facility] partial thromboplastin time (aPTT) in platelet poor plasma by coagulation bqxye1843-13-59 18:59:00* Test Item Value Reference Range Interpretation Comme [facility] Activated Partial Thrombopla st Time (test code = 05931-3) 24.6 [facility] CtrSerum beta human chorionic gonadotropic (BhCG) adjlsjcad1765-34-80 18:59:00* Test Item Value Reference Range Interpretation Comme [facility] Serum Test, Qualit ative (test code = 2110-5) NEGATIVE [facility] CtrAbsolute eosinophil elxxx8760-21-35 18:48:00* Test Item Value Reference Range Interpretation Comme [facility] Eosinophils # (Auto) (test c ode = BPN5307) 0.24 [facility] CtrRBC svzvs6423-29-65 18:48:00* Test Item Value Reference Range Interpretation Comme [facility] Red Blood Count (test code = 75603942) 4.51 [facility] MkvUztoskqgzl5863-05-60 18:48:00* Test Item Value Reference Range Interpretation Comme [facility] Hematocrit (test code = 61668296) 35.7 [facility] CtrMCV (mean corpuscular volume) determination 2024-12-10 18:48:00* Test Item Value Reference Range Interpretation Comme [facility] Mean Corpuscular Volume (shailesh t code = 57138-3) 79.2 [facility] CtrMean corpuscular hemoglobin (MCH) determination 2024-12-10 18:48:00* Test Item Value Reference Range Interpretation Comme [facility] Mean Corpuscular Hemoglobin (test code = 09512996) 25.1 [facility] CtrMean corpuscular hemoglobin concentration (MCHC) glqdvoeojhmvj5979-22-70 18:48:00* Test Item Value Reference Range Interpretation Comme [facility] Mean Corpuscular Hemoglobin Concent (test code = 30069120) 31.7 [facility] CtrRBC distribution width coefficient of variation 2024-12-10 18:48:00* Test Item Value Reference Range Interpretation Comme [facility] Red Cell Distribution Width (test code = 33069454) 16.9 [facility] CtrPlatelet elglb4774-95-67 18:48:00* Test Item Value Reference Range Interpretation Comme [facility] Platelet Count (test code = 37780593) 395 [facility] CtrMean platelet vlesor9007-76-62 18:48:00* Test Item Value Reference Range Interpretation Comme nts Mean Platelet Volume (test c ode = 72923740) 8.8 [facility] CtrNeutrophils seg % qgf7746-81-48 18:48:00* Test Item Value Reference Range Interpretation Comme nts Neutrophils (%) (Auto) (test code = 60304-4) 53.2 [facility] CtrAbsolute immature granulocyte qzneo7577-51-34 18:48:00* Test Item Value Reference Range Interpretation Comme nts Absolute Immature Granulocyt e (auto (test code = 03039-2) 0.03 [facility] CtrBasophil % kujmfz7920-08-31 18:48:00* Test Item Value Reference Range Interpretation Comme nts Basophils (%) (Auto) (test c ode = 05868-6) 0.4 [facility] CtrBlood band neutrophils count (number/volume) 2024-12-10 18:48:00* Test Item Value Reference Range Interpretation Comme nts Neutrophils # (Auto) (test c ode = 57089-3) 4.46 [facility] CtrAbsolute lymphocyte cjsnc3106-69-03 18:48:00* Test Item Value Reference Range Interpretation Comme nts Lymphocytes # (Auto) (test c ode = 99993-0) 3.09 [facility] CtrAbsolute basophil ymdqd7191-94-62 18:48:00* Test Item Value Reference Range Interpretation Comme nts Basophils # (Auto) (test cod e = 81986770) 0.03 [facility] CtrAbsolute NRBC xbdqc5388-57-72 18:48:00* Test Item Value Reference Range Interpretation Comme nts Nucleated Red Blood Cells # (test code = 118244195) 0 [facility] CtrEKG (SCANNED DOCUMENTS)2024-12-09 20:20:06Ordered by an unspecified provider.[facility] 2024-[facility]-09 02:28:53* Test Item Value Reference Range Interpretation Comme nts TROPONIN I (test code = 1143655987) 0.003 ng/mL <=0.034 DARWIN (test code = [...] of biotin. Lab Interpretation (test code = 54530-5) Normal [facility] CenterN-TERMINAL QQH-VTU2816-70-04 02:26:17* Test Item Value Reference Range Interpretation Comme nts NT-proBNP (test code = 95022-4) 47 pg/mL <=125 Lab Interpretation (test cod e = 85072-9) Normal [facility] CenterCOMP. METABOLIC PANEL (29876)2024-12-09 02:17:14* Test Item Value Reference Range Interpretation Comme nts NA (test code = 0916619221) 139 mmol/L 135-145 K (test code = 3340219842) 3.2 mmol/L 3.5-5.0 L CL (test code = 6513856984) 106 mmol/L 98-108 CO2 TOTAL (test code = 1579638452) 23 mmol/L 23-31 AGAP (test code = 3268327145) 10 2-16 BUN (test code = 9689903067) 12 mg/dL 7-23 GLUCOSE (test code = 5145328265) 117 mg/dL 70-110 H CREATININE (test code = 2160-0) 0.63 mg/dL 0.50-1.04 TOTAL BILI (test code = 9502272235) 0.1 mg/dL 0.1-1.1 CALCIUM (test code = 2084695089) 9 mg/dL 8.6-10.6 T PROTEIN (test code = 2530063384) 6.4 g/dL 6.3-8.2 ALBUMIN (test code = 6707800348) 3.7 g/dL 3.5-5.0 ALK PHOS (test code = 7158912886) 63 U/L 34-122 ALTv (test code = 1742-6) 17 U/L 5-35 AST(SGOT) (test code = 6368254296) 16 U/L 13-40 eGFR (test code = 78967-5) 111.6 mL/min/1.73m2 CKD-EPI eGFR (2020). Assuming creatinine has been stable day-to-day for at least three months, the eGFR indicates Category G1 (>= 90 mL/min/1.73 m2) Lab Interpretation (test code = 40949-2) Abnormal [facility] WITH SVFT1884-50-21 02:00:12* Test Item Value Reference Range Interpretation Comme nts WBC (test code = 6690-2) 7.36 4.30-11.10 RBC (test code = 789-8) 4.18 3.93-5.25 HGB (test code = 718-7) 11 g/dL 11.6-15.0 L HCT (test code = 4544-3) 33.9 % 35.7-45.2 L MCV (test code = 787-2) 81.1 fL 80.6-95.5 MCH (test code = 785-6) 26.3 pg 25.9-32.8 MCHC (test code = 786-4) 32.4 g/dL 31.6-35.1 RDW-SD (test code = 63789-2) 51.7 fL 39.0-49.9 H RDW-CV (test code = 788-0) 17.3 % 12.0-15.5 H PLT (test code = 777-3) 377 166-358 H MPV (test code = 93086-2) 9.3 fL 9.5-12.9 L NRBC/100 WBC (test code = 2529466596) 0 0.0-10.0 NRBC x10^3 (test code = 1116433007) See_Comment [Automated messa ge] The system which generated this result transmitted reference range: 10*3/?L. The reference range was not used to interpret this result as normal/abnormal. GRAN MAT (NEUT) % (test code = 770-8) 53.2 % IMM GRAN % (test code = 0883707742) 0.4 % LYMPH % (test code = 736-9) 37.2 % MONO % (test code = 5905-5) 6 % EOS % (test code = 713-8) 2.7 % BASO % (test code = 706-2) 0.5 % GRAN MAT x10^3(ANC) (test code = 9126351665) 3.91 10*3/uL 1.88-7.09 IMM GRAN x10^3 (test code = 1557435995) 0.03 10*3/uL 0.00-0.06 LYMPH x10^3 (test code = 731-0) 2.74 10*3/uL 1.32-3.29 MONO x10^3 (test code = 742-7) 0.44 10*3/uL 0.33-0.92 EOS x10^3 (test code = 711-2) 0.2 10*3/uL 0.03-0.39 BASO x10^3 (test code = 704-7) 0.04 10*3/uL 0.01-0.07 Lab Interpretation (test code = 46324-8) Abnormal [facility] CenterTroponin Q6500-01-64 04:09:19* Test Item Value Reference Range Interpretation Comme nts TROPONIN I (test code = 0097320601) 0.002 ng/mL <=0.034 DARWIN (test code = [...] of biotin. Lab Interpretation (test code = 85172-5) Normal [facility] CenterXR Chest 1 il9503-86-45 00:10:33CHEST ONE VIEW ORDERING PHYSICIAN: KLAUDIA NARVAEZ CLINICAL HISTORY:Chest pain ; TECHNIQUE: Single frontal radiograph of the chest was obtained. COMPARISON: Radiograph 10/31/2024. FINDINGS: Cardiac silhouette is within normal limits. No focal lung consolidation. Nopneumothorax or pleural effusion. Noacute osseous abnormality. [facility] BranchSerum or plasma glucose measurement (mass/volume)2024-11-15 12:58:00* Test Item Value Reference Range Interpretation Comme [facility] Random Glucose (test code = 2345-7) 109 [facility] CtrSerum or plasma urea nitrogen measurement (mass/volume)2024-11-15 12:58:00* Test Item Value Reference Range Interpretation Comme [facility] Blood Urea Nitrogen (test co de = 3094-0) 7 [facility] VupELE7006-58-96 12:58:00* Test Item Value Reference Range Interpretation Comme [facility] Aspartate Amino Transf (AST/ SGOT) (test code = OJE9807) 13 [facility] CtrBilirubin zkssm1623-77-83 12:58:00* Test Item Value Reference Range Interpretation Comme [facility] Total Bilirubin (test code = OXP6280) < 0.2 [facility] CtrEstimated glomerular filtration rate (GFR) qkkyxswvzxhug5779-54-06 12:58:00* Test Item Value Reference Range Interpretation Comme [facility] Glomerular Filtration Rate C alc (test code = 503159873) > 60.00 [facility] CtrBUN/creatinine wbkru0452-39-32 12:58:00* Test Item Value Reference Range Interpretation Comme [facility] BUN/Creatinine Ratio (test c ode = 89833826) 14.9 [facility] IkoKP46852-60-37 12:58:00* Test Item Value Reference Range Interpretation Comme nts Carbon Dioxide Level (test c ode = 29431648) 19 [facility] CtrAnion gap nlbxzrxnqcv5891-48-52 12:58:00* Test Item Value Reference Range Interpretation Comme nts Anion Gap (test code = 43955920) 18.2 [facility] CtrCalcium sjcuh5841-89-96 12:58:00* Test Item Value Reference Range Interpretation Comme nts Calcium Level (test code = 64975880) 9.3 [facility] CtrGlobulin mfn5628-04-73 12:58:00* Test Item Value Reference Range Interpretation Comme nts Globulin (test code = 958505679) 3.0 [facility] CtrALT (SGPT) ser/xhzs5986-95-16 12:58:00* Test Item Value Reference Range Interpretation Comme nts Alanine Aminotransferase (AL T/SGPT) (test code = 1742-6) 12 [facility] InkZgihnf9927-56-17 12:58:00* Test Item Value Reference Range Interpretation Comme nts Lipase (test code = 912662558) 24 [facility] CtrALP ser/owlj3607-67-25 12:58:00* Test Item Value Reference Range Interpretation Comme nts Total Alkaline Phosphatase ( test code = 6768-6) 80 [facility] CtrAbsolute eosinophil qogrn9563-19-35 12:46:00* Test Item Value Reference Range Interpretation Comme nts Eosinophils # (Auto) (test c ode = YUR4804) 0.23 [facility] CtrRBC fuifc6559-54-98 12:46:00* Test Item Value Reference Range Interpretation Comme nts Red Blood Count (test code = 84598111) 4.53 [facility] VikGnjvmokwrx6393-92-16 12:46:00* Test Item Value Reference Range Interpretation Comme nts Hematocrit (test code = 67955792) 36.1 [facility] CtrMCV (mean corpuscular volume) determination 2024-11-15 12:46:00* Test Item Value Reference Range Interpretation Comme [facility] Mean Corpuscular Volume (shailesh t code = 53312-5) 79.7 [facility] CtrMean corpuscular hemoglobin (MCH) determination 2024-11-15 12:46:00* Test Item Value Reference Range Interpretation Comme [facility] Mean Corpuscular Hemoglobin (test code = 56820687) 25.2 [facility] CtrMean corpuscular hemoglobin concentration (MCHC) bfjwgidujfuae0159-73-86 12:46:00* Test Item Value Reference Range Interpretation Comme [facility] Mean Corpuscular Hemoglobin Concent (test code = 37372417) 31.6 [facility] CtrRBC distribution width coefficient of variation 2024-11-15 12:46:00* Test Item Value Reference Range Interpretation Comme nts Red Cell Distribution Width (test code = 75784174) 17.6 [facility] CtrPlatelet tnpdu2808-76-84 12:46:00* Test Item Value Reference Range Interpretation Comme nts Platelet Count (test code = 41643462) 378 [facility] CtrMean platelet nsfrsz6695-71-55 12:46:00* Test Item Value Reference Range Interpretation Comme nts Mean Platelet Volume (test c ode = 66320043) 8.6 [facility] CtrNeutrophils seg % rhm2003-74-20 12:46:00* Test Item Value Reference Range Interpretation Comme nts Neutrophils (%) (Auto) (test code = 98702-1) 62.5 [facility] CtrAbsolute immature granulocyte nkqpo1487-69-01 12:46:00* Test Item Value Reference Range Interpretation Comme nts Absolute Immature Granulocyt e (auto (test code = 98588-0) 0.03 [facility] CtrBasophil % qbzqgf7304-70-98 12:46:00* Test Item Value Reference Range Interpretation Comme nts Basophils (%) (Auto) (test c ode = 07448-9) 0.4 [facility] CtrBlood band neutrophils count (number/volume) 2024-11-15 12:46:00* Test Item Value Reference Range Interpretation Comme nts Neutrophils # (Auto) (test c ode = 82651-1) 5.18 [facility] CtrAbsolute lymphocyte iqjzh5863-63-67 12:46:00* Test Item Value Reference Range Interpretation Comme nts Lymphocytes # (Auto) (test c ode = 08233-4) 2.32 [facility] CtrAbsolute basophil uokab5225-14-64 12:46:00* Test Item Value Reference Range Interpretation Comme nts Basophils # (Auto) (test cod e = 32592420) 0.03 [facility] CtrAbsolute NRBC xxdlo4119-13-66 12:46:00* Test Item Value Reference Range Interpretation Comme nts Nucleated Red Blood Cells # (test code = 226570234) 0 [facility] CtrRBC count ur kzaw5263-17-16 12:27:00* Test Item Value Reference Range Interpretation Comme nts Urine RBC (test code = 798-9) >100 [facility] CtrUrine examination for white blood cells (WBC) 2024-11-15 12:27:00* Test Item Value Reference Range Interpretation Comme nts Urine WBC (test code = 769788493) 0-2 [facility] CtrAutomated epithelial cells count in urine sediment (number/area)2024-11-15 12:27:00* Test Item Value Reference Range Interpretation Comme nts Urine Epithelial Cells (test code = 96350-2) 3-5 [facility] CtrBacteria detection in urine sediment by light wnmvhxgrku2994-57-62 12:27:00* Test Item Value Reference Range Interpretation Comme nts Urine Bacteria (test code = 00842-4) None Seen [facility] CtrUrine casts detection by automated method 2024-11-15 12:27:00* Test Item Value Reference Range Interpretation Comme nts Urine Casts (test code = 48883-6) 0-2 [facility] CtrRBC count ur cbef5596-44-34 12:27:00* Test Item Value Reference Range Interpretation Comme nts Urine RBC (test code = 798-9) >100 [facility]woodUrine examination for white blood cells (WBC) 2024-11-15 12:27:00* Test Item Value Reference Range Interpretation Comme nts Urine WBC (test code = 028293594) 0-2 [facility] CtrAutomated epithelial cells count in urine sediment (number/area)2024-11-15 12:27:00* Test Item Value Reference Range Interpretation Comme nts Urine Epithelial Cells (test code = 62879-1) 3-5 [facility] CtrBacteria detection in urine sediment by light mmcastvgpv8718-99-43 12:27:00* Test Item Value Reference Range Interpretation Comme nts Urine Bacteria (test code = 87237-8) None Seen [facility] CtrUrine casts detection by automated method 2024-11-15 12:27:00* Test Item Value Reference Range Interpretation Comme nts Urine Casts (test code = 83361-1) 0-2 [facility] CtrHCG ur JK8431-88-28 12:23:00* Test Item Value Reference Range Interpretation Comme nts Urine HCG, Qualitative (test code = 2106-3) NEGATIVE [facility] CtrHCG ur CV4650-24-96 12:23:00* Test Item Value Reference Range Interpretation Comme nts Urine HCG, Qualitative (test code = 2106-3) NEGATIVE [facility] CtrColor of Urine by Uqhr2484-72-24 12:22:00* Test Item Value Reference Range Interpretation Comme nts Urine Color (test code = 59148-7) Yellow [facility] CtrAppearance of Ovxmr0739-05-44 12:22:00* Test Item Value Reference Range Interpretation Comme nts Urine Appearance (test code = 5767-9) Clear [facility] BrownwoodUrine glucose jdplipiwl1445-10-14 12:22:00* Test Item Value Reference Range Interpretation Comme [facility] Urine Glucose (UA) (test cod e = 2349-9) Negative [facility] CtrBilirubin us7621-44-39 12:22:00* Test Item Value Reference Range Interpretation Comme [facility] Urine Bilirubin (test code = 015310163) Negative [facility] CtrKetones xl2251-43-07 12:22:00* Test Item Value Reference Range Interpretation Comme nts Urine Ketones (test code = 19535664) Negative [facility] CtrSpecific gravity of Urine by Automated test strip 2024-11-15 12:22:00* Test Item Value Reference Range Interpretation Comme nts Urine Specific [place] (test code = 69380-5) 1.006 [facility] CtrUrine blood pufrbgazz0593-12-82 12:22:00* Test Item Value Reference Range Interpretation Comme nts Urine Blood (test code = 821902-5) 3+ (LARGE) [facility] CtrpH em4875-35-40 12:22:00* Test Item Value Reference Range Interpretation Comme nts Urine pH (test code = 2756-5) 5.500 [facility] CtrProtein mm7543-50-41 12:22:00* Test Item Value Reference Range Interpretation Comme nts Urine Protein (test code = 41792855) Negative [facility] CtrUrobilinogen, urine, yr3947-87-73 12:22:00* Test Item Value Reference Range Interpretation Comme nts Urine Urobilinogen (test cod e = 892631295) 0.2 [facility]woodUrine nitrate hstuyvbkt0976-34-46 12:22:00* Test Item Value Reference Range Interpretation Comme nts Urine Nitrate (test code = 87956-8) Negative [facility] BrownwoodUrine leukocyte esterase lclsfnnol7327-65-42 12:22:00* Test Item Value Reference Range Interpretation Comme nts Urine Leukocyte Esterase (te st code = 405411-8) Negative [facility] CtrColor of Urine by Uwad0818-09-34 12:22:00* Test Item Value Reference Range Interpretation Comme nts Urine Color (test code = 62828-6) Yellow [facility] CtrAppearance of Sdsxn2400-44-16 12:22:00* Test Item Value Reference Range Interpretation Comme nts Urine Appearance (test code = 5767-9) Clear [facility] BrownwoodUrine glucose knqebrvjm4204-09-07 12:22:00* Test Item Value Reference Range Interpretation Comme nts Urine Glucose (UA) (test cod e = 2349-9) Negative [facility] CtrBilirubin cs1588-64-82 12:22:00* Test Item Value Reference Range Interpretation Comme nts Urine Bilirubin (test code = 534676957) Negative [facility] CtrKetones tl2687-94-19 12:22:00* Test Item Value Reference Range Interpretation Comme nts Urine Ketones (test code = 82557973) Negative [facility] CtrSpecific gravity of Urine by Automated test strip 2024-11-15 12:22:00* Test Item Value Reference Range Interpretation Comme nts Urine Specific [place] (test code = 42020-2) 1.006 [facility] BrownwoodUrine blood bmwpmjykf2883-39-99 12:22:00* Test Item Value Reference Range Interpretation Comme nts Urine Blood (test code = 432786-8) 3+ (LARGE) [facility] CtrpH mo5174-35-44 12:22:00* Test Item Value Reference Range Interpretation Comme nts Urine pH (test code = 2756-5) 5.500 [facility] CtrProtein ql6533-58-04 12:22:00* Test Item Value Reference Range Interpretation Comme nts Urine Protein (test code = 55608513) Negative [facility] CtrUrobilinogen, urine, vo1694-78-78 12:22:00* Test Item Value Reference Range Interpretation Comme nts Urine Urobilinogen (test cod e = 984692942) 0.2 [facility] CtrUrine nitrate xatsphlbs1965-80-85 12:22:00* Test Item Value Reference Range Interpretation Comme [facility] Urine Nitrate (test code = 95228-5) Negative [facility] CtrUrine leukocyte esterase fshpagmtz3574-21-82 12:22:00* Test Item Value Reference Range Interpretation Comme [facility] Urine Leukocyte Esterase (te st code = 461023-5) Negative [facility] CtrPOCT BWUK1950-97-86 01:45:00* Test Item Value Reference Range Interpretation Comme nts POCT PREG (test code = 1605) Negative On board controls acceptable with C Line (test code = 3574) Yes POCT PREG LOT # (test code = 3575) [id number] POCT PREG TEST DATE ( test code = 3576) 2026-01-04 Lab Interpretation (test cod e = 31251-4) [facility] w cvpyzjhn7008-04-87 05:06:35Exam: CT Abdomen and Pelvis with contrast, [...] tissues: Unr emarkable.Bones: No acute osseous abnormality.[facility] Comp. Metabolic Panel (00631)2024-11-11 03:05:56* Test Item Value Reference Range Interpretation Comme nts NA (test code = 5686569850) 137 mmol/L 135-145 K (test code = 3511671379) 3.2 mmol/L 3.5-5.0 L CL (test code = 6595160793) 107 mmol/L 98-108 CO2 TOTAL (test code = 9153028117) 23 mmol/L 23-31 AGAP (test code = 9359728957) 7 2-16 BUN (test code = 2206586296) 8 mg/dL 7-23 GLUCOSE (test code = 6403633251) 93 mg/dL 70-110 CREATININE (test code = 2160-0) 0.59 mg/dL 0.50-1.04 TOTAL BILI (test code = 8752292274) 0.2 mg/dL 0.1-1.1 CALCIUM (test code = 5677968322) 9 mg/dL 8.6-10.6 T PROTEIN (test code = 0913450980) 6.5 g/dL 6.3-8.2 ALBUMIN (test code = 5111677171) 3.8 g/dL 3.5-5.0 ALK PHOS (test code = 1427290736) 56 U/L 34-122 ALTv (test code = 1742-6) 14 U/L 5-35 AST(SGOT) (test code = 5952656563) 16 U/L 13-40 eGFR (test code = 32589-2) 113.4 mL/min/1.73m2 CKD-EPI eGFR (2020). Assuming creatinine has been stable day-to-day for at least three months, the eGFR indicates Category G1 (>= 90 mL/min/1.73 m2) Lab Interpretation (test code = 83882-3) Abnormal [facility] CenterLipase2025-05-07 03:05:36* Test Item Value Reference Range Interpretation Comme nts LIPASE (test code = 5159618747) 108 U/L 0-220 Lab Interpretation (test cod e = 05976-2) Normal [facility] CenterCb with Bkik4090-32-87 02:49:12* Test Item Value Reference Range Interpretation [...] 32.5 g/dL 31.6-35.1 RDW-SD (test code = 51607-4) 52.4 fL 39.0-49.9 H RDW-CV (test code = 788-0) 17.9 % 12.0-15.5 H PLT (test code = 777-3) 337 166-358 MPV (test code = 63564-2) 9.6 fL 9.5-12.9 NRBC/100 WBC (test code = 9247291085) 0 0.0-10.0 NRBC x10^3 (test code = 7646088211) See_Comment [Automated messa ge] The system which generated this result transmitted reference range: 10*3/?L. The reference range was not used to interpret this result as normal/abnormal. GRAN MAT (NEUT) % (test code = 770-8) 49.2 % IMM GRAN % (test code = 6131631954) 0.1 % LYMPH % (test code = 736-9) 40.4 % MONO % (test code = 5905-5) 7 % EOS % (test code = 713-8) 2.8 % BASO % (test code = 706-2) 0.5 % GRAN MAT x10^3(ANC) (test code = 2963714782) 3.86 10*3/uL 1.88-7.09 IMM GRAN x10^3 (test code = 6738484153) 0.00-0.06 LYMPH x10^3 (test code = 731-0) 3.17 10*3/uL 1.32-3.29 MONO x10^3 (test code = 742-7) 0.55 10*3/uL 0.33-0.92 EOS x10^3 (test code = 711-2) 0.22 10*3/uL 0.03-0.39 BASO x10^3 (test code = 704-7) 0.04 10*3/uL 0.01-0.07 Lab Interpretation (test code = 09422-2) [facility]normal [facility] CenterPOCT RLYR0430-49-93 02:26:00* Test Item Value Reference Range Interpretation Comme nts POCT PREG (test code = 1605) Negative On board controls acceptable with C Line (test code = 3574) Yes POCT PREG LOT # (test code = 3575) [id number] POCT PREG TEST DATE ( test code = 3576) 01/28/2026 Lab Interpretation (test cod e = 42027-7) Normal [facility] CenterCardiovascular Usngzbbaowsttrn7544-05-03 20:32:27Left Heart Cath/Coronary Angiography Charity Roca Date of Service: 11/03/2024 ?2:55 PM Attending Physician: Dane Jurado MDFematiow: Dr. JonesReferring Physician: Dr. Sandra ProceduresPerformed:LHC/Coronary Angiogram: CPT 86634GQX of mLAD: CPT 25468AZW of mRCA: CPT 87039 Indication/D iagnosis: ACS ([place]/NSTEMI) Consent: Risks, benefits, alternatives and complications of the procedure discussed with the patient, who understood and agreed to proceed. Aseptic technique: Chlorprep Local Anesthesia: 1% lidocaine without epinephrine Sedation: Moderate Access site: right femoral arteryClosure Method: Angio-Seal Sterile dressing: yes Complications: none Procedures: After patient identification/verification, the patient was thereafter transferred to the denture laboratory technician table. ?The access site was prepped and [...] with patient Dane Jurado MD 11/03/2024 2[facility]2024-11-03 14:39:09* Test Item Value Reference Range Interpretation [facility] (test code = 3173-2) 43 26-36 H Lab Interpretation (test cod e = 00219-8) Abnormal [facility] (for use with Heparin Infusion)2024-11-03 14:39:09* Test Item Value Reference Range Interpretation [facility] Patient (test code = 3173-2) 43 26-36 H Lab Interpretation (test cod e = 82983-4) Abnormal [place] [address] Lead ROUTINE [id number] 09:59:09* Test Item Value Reference Range [facility]ation [facility] Lab Interpretation (test cod e = 97032-1) Abnormal [place] [address] Lead ROUTINE CWAK1623-43-31 09:59:09* Test Item Value Reference Range [facility]ation [facility] Lab Interpretation (test cod e = 14611-1) [facility]normal [facility] Aqoloij9466-90-85 00:01:33 * Test Item Value Reference Range Interpretation Comme nts TSH (test code = 2700266355) 4.07 0.45-4.70 Biotin has been reported to cause a negative bias, interpret results relative to patient's use of biotin. Lab Interpretation (test code = 20791-6) Normal [facility] Zvyoytb4050-32-44 00:01:33 * Test Item Value Reference Range Interpretation Comme nts TSH (test code = 2171527086) 4.07 0.45-4.70 Biotin has been reported to cause a negative bias, interpret results relative to patient's use of biotin. Lab Interpretation (test code = 61624-0) Normal [facility] Center[facility] (PT) / [id number] 20:11:45 * Test Item Value Reference Range Interpretation Comme [facility] PROTIME PATIENT (test code = 5964-2) 11.3 10.1-12.6 INR (test code = 6301-6) 1 <=4.5 Normal INR <1.1; Warfarin Therapeutic range 2.0 to 3.0 or 2.5 to 3.5, depending upon the indications. Lab Interpretation (test code = 62782-6) Normal [place] 91296025-04-27 20:11:45* Test Item Value Reference Range Interpretation Comme [facility] APTT Patient (test code = 3173-2) 25 26-36 L DARWIN (test code = DARWIN) The [facility] patient population mean normal value for aPTT is 30 seconds. Lab Interpretation (test code = 64454-5) Abnormal [facility] Center[facility] (PT[facility] / [id number] 20:11:45 * Test Item Value Reference Range Interpretation Comme [facility] PROTIME PATIENT (test code = 5964-2) 11.3 10.1-12.6 INR (test code = 6301-6) 1 <=4.5 Normal INR <1.1; Warfarin Therapeutic range 2.0 to 3.0 or 2.5 to 3.5, depending upon the indications. Lab Interpretation (test code = 01293-2) Normal [place] 91296025-04-27 20:11:45* Test Item Value Reference Range Interpretation Comme nts APTT Patient (test code = 3173-2) 25 26-36 L DARWIN (test code = DARWIN) The [facility] patient population mean normal value for aPTT is 30 seconds. Lab Interpretation (test code = 51115-5) Abnormal [facility] CenterProcalcitonin2025-04-27 17:14:31* Test Item Value Reference Range Interpretation Comme nts Procalcitonin (test code = 3644375502) 0.02 ng/mL <=0.07 DARWIN (test code = [...] lung abscess/empyema. For further information please refer to:[email or web address] Lab Interpretation (test code = 14617-4) Normal [facility] CenterProcalcitonin2025-04-27 17:14:31* Test Item Value Reference Range Interpretation Comme nts Procalcitonin (test code = 3754916446) 0.02 ng/mL <=0.07 DARWIN (test code = [...] lung abscess/empyema. For further information please refer to:[email or web address] Lab Interpretation (test code = 08633-4) Normal [facility] CenterTransthoracic echo (TTE) Dujihry1661-80-82 14:54:14* Test Item Value Reference Range Interpretation Comme nts Height (test code = 2865881109) 62 in Weight (test code = 0823009405) 240 lbs Systolic BP (test code = 0714429580) 156 mmHg Diastolic BP (test code = 2938386107) 99 mmHg Heart Rate (test code = 5677323200) 76 bpm BSA (test code = 1509250264) 2.07 m2 LVOT diameter (test code = 4443229127) 1.86 cm LVOT area (test code = 9262303443) 2.7 cm2 Ao root diam (test code = 0932895795) 3.1 cm Aortic root (test code = 5056522896) 3.1 cm Ao root annulus (test code = 9893602326) 3.1 cm LA size (test code = 0611365676) 3.7 cm LVIDD (test code = 6571886692) 3.8 cm Left Ventricular End Diastolic Volume by Teichholz Method (test code = 4179050) 63 mL IVS (test code = 2836074009) 1.35 cm Interventricular Septum Diastolic Thickness by 2D (test code = 3046385) 1.35 cm LVPWD (test code = 3658578608) 1.36 cm PW (test code = 3701988567) 1.36 cm 0.6-1.1 EF(Teich) (test code = 8916243237) 53 % LVIDS (test code = 3080751353) 2.8 cm Left Ventricular End Systolic Volume by Teichholz Method (test code = 2698313) 29.6 mL FS (test code = 1820019238) 27 % EF - 2D (test code = 19728612) 53 % LAV(MOD-sp4) (test code = 3904744946) 53.8 mL E wave decelartion time (test code = 3267885476) 0.25 s MV stenosis pressure 1/2 time (test code = 1818639093) 73.5 ms MV Peak A Edilson (test code = 0129473734) 73.2 cm/s MV Peak E Edilson (test code = 8928147892) 64.2 cm/s E/A ratio (test code = 4900829845) 0.88 ratio MV Prop V (test code = 9004153781) 62.4 cm/s MV E/e' septal (test code = 8448752637) 12.8 cm/s Tapse (test code = 0434055211) 1.58 cm LVOT stroke volume (test code = 6482547820) 60 cm3 LVOT peak edilson (test code = 5743622401) 110.2 cm/s LVOT mn grad (test code = 0495495952) 2.5 mmHg AV LVOT peak gradient (test code = 3410524919) 4.9 mmHg LVOT peak VTI (test code = 7966473844) 22.1 cm LV V1 mean (test code = 4323442878) 75.6 cm/s Aortic valve mean velocity (test code = 3079952708) 97 cm/s Ao peak edilson (test code = 8401404450) 138 cm/s Ao VTI (test code = 9943980581) 28 cm AV area by cont VTI (test code = 6591115810) 2.1 cm2 AV area peak edilson (test code = 2384079713) 2.2 cm2 Ao max PG (test code = 6170461448) 7.6 mm[Hg] AV peak gradient (test code = 6947749073) 7.6 mmHg AV valve area (test code = 6616809645) 2.14 cm2 AV mean gradient (test code = 9160232833) 4 mmHg Radiology Study observation (narrative) (test code = 20175-1) DARWIN (test code = DARWIN) ?Left?Ventricle: Left [...] used. [facility] CenterTransthoracic echo (TTE) Gpqelij1741-19-83 14:54:14* Test Item Value Reference Range Interpretation Comme nts Height (test code = 4345155146) 62 in Weight (test code = 7171036975) 240 lbs Systolic BP (test code = 5584543211) 156 mmHg Diastolic BP (test code = 0403779357) 99 mmHg Heart Rate (test code = 2881263503) 76 bpm BSA (test code = 8004678290) 2.07 m2 LVOT diameter (test code = 0087680638) 1.86 cm LVOT area (test code = 3018511005) 2.7 cm2 Ao root diam (test code = 6906395651) 3.1 cm Aortic root (test code = 2611086031) 3.1 cm Ao root annulus (test code = 4256705437) 3.1 cm LA size (test code = 0295636633) 3.7 cm LVIDD (test code = 9386587055) 3.8 cm Left Ventricular End Diastolic Volume by Teichholz Method (test code = 7339517) 63 mL IVS (test code = 6583561640) 1.35 cm Interventricular Septum Diastolic Thickness by 2D (test code = 9502611) 1.35 cm LVPWD (test code = 0403448166) 1.36 cm PW (test code = 4218790345) 1.36 cm 0.6-1.1 EF(Teich) (test code = 7739703948) 53 % LVIDS (test code = 9843271613) 2.8 cm Left Ventricular End Systolic Volume by Teichholz Method (test code = 2266863) 29.6 mL FS (test code = 1722787954) 27 % EF - 2D (test code = 51221571) 53 % LAV(MOD-sp4) (test code = 5807731588) 53.8 mL E wave decelartion time (test code = 1588555060) 0.25 s MV stenosis pressure 1/2 time (test code = 2560273307) 73.5 ms MV Peak A Edilson (test code = 7484777696) 73.2 cm/s MV Peak E Edilson (test code = 2055912581) 64.2 cm/s E/A ratio (test code = 2899617658) 0.88 ratio MV Prop V (test code = 5618921834) 62.4 cm/s MV E/e' septal (test code = 4063575988) 12.8 cm/s Tapse (test code = 6893533267) 1.58 cm LVOT stroke volume (test code = 1554345839) 60 cm3 LVOT peak edilson (test code = 5616543757) 110.2 cm/s LVOT mn grad (test code = 0853061369) 2.5 mmHg AV LVOT peak gradient (test code = 7059093406) 4.9 mmHg LVOT peak VTI (test code = 8810462091) 22.1 cm LV V1 mean (test code = 6022875102) 75.6 cm/s Aortic valve mean velocity (test code = 8212681487) 97 cm/s Ao peak edilson (test code = 5617496248) 138 cm/s Ao VTI (test code = 6298482049) 28 cm AV area by cont VTI (test code = 7922208746) 2.1 cm2 AV area peak edilson (test code = 3499738804) 2.2 cm2 Ao max PG (test code = 1095224165) 7.6 mm[Hg] AV peak gradient (test code = 2351982911) 7.6 mmHg AV valve area (test code = 6003544297) 2.14 cm2 AV mean gradient (test code = 4540704660) 4 mmHg Radiology Study observation (narrative) (test code = 59315-4) DARWIN (test code = DARWIN) ?Left?Ventricle: Left [...] enhancing agent used. [facility] CenterN-Terminal Mhx-Rus8279-01-27 14:40:37* Test Item Value Reference Range Interpretation Comme [facility] NT-proBNP (test code = 58458-8) <=125 Lab Interpretation (test cod e = 54868-1) Normal [facility] CenterN-Terminal Msv-Nho2314-17-27 14:40:37* Test Item Value Reference Range Interpretation Comme nts NT-proBNP (test code = 53600-8) <=125 Lab Interpretation (test cod e = 95926-4) Normal [facility] CenterGlycosylated Hemoglobin (A1C)2024-11-01 14:39:42* Test Item Value Reference Range Interpretation Comme [facility] HGB A1C (test code = 4548-4) 5.6 % 4.0-5.7 DARWIN (test code = DARWIN) Reference RangesNormal: <5.7%Prediabetes: 5.7 - 6.4%Diabetes: > 6.5% Lab Interpretation (test code = 15644-3) Normal [facility] CenterGlycosylated Hemoglobin (A1C)2024-11-01 14:39:42* Test Item Value Reference Range Interpretation Comme nts HGB A1C (test code = 4548-4) 5.6 % 4.0-5.7 DARWIN (test code = DARWIN) Reference RangesNormal: <5.7%Prediabetes: 5.7 - 6.4%Diabetes: > 6.5% Lab Interpretation (test code = 94318-3) Normal [facility] A0628-38-58 14:28:10* Test Item Value Reference Range Interpretation Comme nts TROPONIN I (test code = 4500718381) 0.003 ng/mL <=0.034 DARWIN (test code = [...] of biotin. Lab Interpretation (test code = 22140-4) Normal [facility] D4430-74-07 14:28:10* Test Item Value Reference Range Interpretation Comme nts TROPONIN I (test code = 3887348082) 0.003 ng/mL <=0.034 DARWIN (test code = [...] of biotin. Lab Interpretation (test code = 00504-0) Normal [facility] CenterLipid Panel (27504)(Total Cholesterol, Triglycerides, HDL)2024-11-01 14:15:31* Test Item Value Reference Range Interpretation Comme nts CHOL (test code = 4331220644) 185 mg/dL 120-200 HDL (test code = 1614911353) 36 mg/dL >=50 L HDLC RATIO (test code = 2655717840) 5.1 <=4.5 H TRIG (test code = 2301542704) 219 mg/dL 30-170 H LDL CHOL (test code = 98743-6) 105 mg/dL <=160 VLDL (test code = 0652156769) 44 mg/dL 5-60 Lab Interpretation (test cod e = 54218-5) Abnormal [facility] CenterLipid Panel (91668)(Total Cholesterol, Triglycerides, HDL)2024-11-01 14:15:31* Test Item Value Reference Range Interpretation Comme nts CHOL (test code = 3025729014) 185 mg/dL 120-200 HDL (test code = 0909666627) 36 mg/dL >=50 L HDLC RATIO (test code = 0487835209) 5.1 <=4.5 H TRIG (test code = 7391185599) 219 mg/dL 30-170 H LDL CHOL (test code = 19804-8) 105 mg/dL <=160 VLDL (test code = 8123069290) 44 mg/dL 5-60 Lab Interpretation (test cod e = 86163-3) [facility] [id number] 08:18:33* Test Item Value Reference Range Interpretation Comme nts TROPONIN I (test code = 1499630042) 0.002 ng/mL <=0.034 DARWIN (test code = [...] of biotin. Lab Interpretation (test code = 99075-3) Normal [facility] L5061-25-24 08:18:33* Test Item Value Reference Range Interpretation Comme nts TROPONIN I (test code = 3435826506) 0.002 ng/mL <=0.034 DARWIN (test code = [...] of biotin. Lab Interpretation (test code = 77732-7) Normal [facility] Metabolic Panel (NA, K, CL, CO2, GLUCOSE, BUN, CREATININE, CA)2024-11-01 08:06:31* Test Item Value Reference Range Interpretation Comme nts NA (test code = 1247663418) 138 mmol/L 135-145 K (test code = 7440561146) 3.6 mmol/L 3.5-5.0 CL (test code = 9175136284) 105 mmol/L 98-108 CO2 TOTAL (test code = 1460568605) 25 mmol/L 23-31 AGAP (test code = 0554269056) 8 2-16 BUN (test code = 2251057038) 9 mg/dL 7-23 GLUCOSE (test code = 4052326232) 113 mg/dL 70-110 H CREATININE (test code = 2160-0) 0.63 mg/dL 0.50-1.04 CALCIUM (test code = 0162383913) 9.1 mg/dL 8.6-10.6 eGFR (test code = 42749-5) 111.6 mL/min/1.73m2 CKD-EPI eGFR (2020). Assuming creatinine has been stable day-to-day for at least three months, the eGFR indicates Category G1 (>= 90 mL/min/1.73 m2) Lab Interpretation (test code = 55749-6) Abnormal [facility] Metabolic Panel (NA, K, CL, CO2, GLUCOSE, BUN, CREATININE, CA)2024-11-01 08:06:31* Test Item Value Reference Range Interpretation Comme nts NA (test code = 9368894761) 138 mmol/L 135-145 K (test code = 4673911975) 3.6 mmol/L 3.5-5.0 CL (test code = 2173073023) 105 mmol/L 98-108 CO2 TOTAL (test code = 0427356049) 25 mmol/L 23-31 AGAP (test code = 9118590776) 8 2-16 BUN (test code = 5443563125) 9 mg/dL 7-23 GLUCOSE (test code = 9107231268) 113 mg/dL 70-110 H CREATININE (test code = 2160-0) 0.63 mg/dL 0.50-1.04 CALCIUM (test code = 9584855003) 9.1 mg/dL 8.6-10.6 eGFR (test code = 59207-1) 111.6 mL/min/1.73m2 CKD-EPI eGFR (2020). Assuming creatinine has been stable day-to-day for at least three months, the eGFR indicates Category G1 (>= 90 mL/min/1.73 m2) Lab Interpretation (test code = 82479-8) Abnormal [facility] CenterCb with Awwi6963-62-24 07:51:49* Test Item Value Reference Range Interpretation [...] 32.6 g/dL 31.6-35.1 RDW-SD (test code = 03812-8) 53.2 fL 39.0-49.9 H RDW-CV (test code = 788-0) 18.6 % 12.0-15.5 H PLT (test code = 777-3) 361 166-358 H MPV (test code = 84977-7) 9.5 fL 9.5-12.9 NRBC/100 WBC (test code = 2927956549) 0 0.0-10.0 NRBC x10^3 (test code = 0970523644) See_Comment [Automated messa ge] The system which generated this result transmitted reference range: 10*3/?L. The reference range was not used to interpret this result as normal/abnormal. GRAN MAT (NEUT) % (test code = 770-8) 63.7 % IMM GRAN % (test code = 9349103977) 0.4 % LYMPH % (test code = 736-9) 26.9 % MONO % (test code = 5905-5) 7.1 % EOS % (test code = 713-8) 1.5 % BASO % (test code = 706-2) 0.4 % GRAN MAT x10^3(ANC) (test code = 3802824685) 7.23 10*3/uL 1.88-7.09 H IMM GRAN x10^3 (test code = 6820000029) 0.05 10*3/uL 0.00-0.06 LYMPH x10^3 (test code = 731-0) 3.05 10*3/uL 1.32-3.29 MONO x10^3 (test code = 742-7) 0.8 10*3/uL 0.33-0.92 EOS x10^3 (test code = 711-2) 0.17 10*3/uL 0.03-0.39 BASO x10^3 (test code = 704-7) 0.04 10*3/uL 0.01-0.07 Lab Interpretation (test code = 00491-7) Abnormal [facility] with Zmsr3169-43-79 07:51:49* Test Item Value Reference Range Interpretation [...] 32.6 g/dL 31.6-35.1 RDW-SD (test code = 13648-8) 53.2 fL 39.0-49.9 H RDW-CV (test code = 788-0) 18.6 % 12.0-15.5 H PLT (test code = 777-3) 361 166-358 H MPV (test code = 98288-1) 9.5 fL 9.5-12.9 NRBC/100 WBC (test code = 7781207920) 0 0.0-10.0 NRBC x10^3 (test code = 1710409799) See_Comment [Automated messa ge] The system which generated this result transmitted reference range: 10*3/?L. The reference range was not used to interpret this result as normal/abnormal. GRAN MAT (NEUT) % (test code = 770-8) 63.7 % IMM GRAN % (test code = 9183359558) 0.4 % LYMPH % (test code = 736-9) 26.9 % MONO % (test code = 5905-5) 7.1 % EOS % (test code = 713-8) 1.5 % BASO % (test code = 706-2) 0.4 % GRAN MAT x10^3(ANC) (test code = 5582003662) 7.23 10*3/uL 1.88-7.09 H IMM GRAN x10^3 (test code = 4000420095) 0.05 10*3/uL 0.00-0.06 LYMPH x10^3 (test code = 731-0) 3.05 10*3/uL 1.32-3.29 MONO x10^3 (test code = 742-7) 0.8 10*3/uL 0.33-0.92 EOS x10^3 (test code = 711-2) 0.17 10*3/uL 0.03-0.39 BASO x10^3 (test code = 704-7) 0.04 10*3/uL 0.01-0.07 Lab Interpretation (test code = 16560-8) Abnormal [facility] 1 zc0088-68-56 03:52:49History: chest pain . Exam: XR CHEST 1 VW Date: 10/31/2024 10:00 PM Ordering provider: BOB GARCIA Comparison: 10/12/2024. Findings: Frontal view of the chest is obtained. The cardiac silhouette is normal in size. There are mild left perihilar andbibasilar opacities, which are similar on the prior. No evidence of pleuraleffusion, pneumothorax, or overt CHF.[facility] 1 fr5841-64-10 03:52:49History: chest pain . Exam: XR CHEST 1 VW Date: 10/31/2024 10:00 PM Ordering provider: BOB GARCIA Comparison: 10/12/2024. Findings: Frontal view of the chest is obtained. The cardiac silhouette is n ormal in size. There are mild left perihilar andbibasilar opacities, which are similar on the prior. No evidence of pleuraleffusion, pneumothorax, or overt CHF.[facility] CenterCT Abdomen pelvis w pbiwpjlh7958-70-61 04:15:32CT ABDOMEN PELVIS W CONTRAST 10/23/2024 10:24 [...] changes of the spine. No concerning softtissue abnormality.[facility]. Metabolic Panel (95855)2024-10-24 02:17:07* Test Item Value Reference Range Interpretation Comme nts NA (test code = 3828136686) 136 mmol/L 135-145 K (test code = 0313907209) 3.7 mmol/L 3.5-5.0 CL (test code = 5702591918) 105 mmol/L 98-108 CO2 TOTAL (test code = 8987693743) 22 mmol/L 23-31 L AGAP (test code = 3191277307) 9 2-16 BUN (test code = 0458148052) 13 mg/dL 7-23 GLUCOSE (test code = 5340784583) 106 mg/dL 70-110 CREATININE (test code = 2160-0) 0.57 mg/dL 0.50-1.04 TOTAL BILI (test code = 0251639751) 0.4 mg/dL 0.1-1.1 CALCIUM (test code = 6364991309) 9.4 mg/dL 8.6-10.6 T PROTEIN (test code = 7669731366) 7.1 g/dL 6.3-8.2 ALBUMIN (test code = 2315518772) 4 g/dL 3.5-5.0 ALK PHOS (test code = 9728487410) 64 U/L 34-122 ALTv (test code = 1742-6) 15 U/L 5-35 AST(SGOT) (test code = 7360955517) 18 U/L 13-40 eGFR (test code = 45768-1) 114.4 mL/min/1.73m2 CKD-EPI eGFR (2020). Assuming creatinine has been stable day-to-day for at least three months, the eGFR indicates Category G1 (>= 90 mL/min/1.73 m2) Lab Interpretation (test code = 54290-0) Abnormal [facility] CenterLipase2025-04-19 02:16:47* Test Item Value Reference Range Interpretation Comme nts LIPASE (test code = 1820141699) 110 U/L 0-220 Lab Interpretation (test cod e = 66378-3) Normal [facility] CenterCbc with Udcw0366-66-88 02:13:50* Test Item Value Reference Range Interpretation [...] 32.9 g/dL 31.6-35.1 RDW-SD (test code = 88874-4) 52.2 fL 39.0-49.9 H RDW-CV (test code = 788-0) 17.9 % 12.0-15.5 H PLT (test code = 777-3) 337 166-358 MPV (test code = 54974-2) 9.6 fL 9.5-12.9 IPF % (test code = 1626246703) 1.6 % 1.3-7.7 Platelet count measured by fluorescence method. NRBC/100 WBC (test code = 1056666122) 0 0.0-10.0 NRBC x10^3 (test code = 2501291738) See_Comment [Automated Talk Locala ge] The system which generated this result transmitted reference range: 10*3/?L. The reference range was not used to interpret this result as normal/abnormal. GRAN MAT (NEUT) % (test code = 770-8) 62.2 % IMM GRAN % (test code = 7902788072) 0.3 % LYMPH % (test code = 736-9) 29.3 % MONO % (test code = 5905-5) 6.2 % EOS % (test code = 713-8) 1.6 % BASO % (test code = 706-2) 0.4 % GRAN MAT x10^3(ANC) (test code = 4907367351) 6.92 10*3/uL 1.88-7.09 IMM GRAN x10^3 (test code = 0547343926) 0.03 10*3/uL 0.00-0.06 LYMPH x10^3 (test code = 731-0) 3.26 10*3/uL 1.32-3.29 MONO x10^3 (test code = 742-7) 0.69 10*3/uL 0.33-0.92 EOS x10^3 (test code = 711-2) 0.18 10*3/uL 0.03-0.39 BASO x10^3 (test code = 704-7) 0.05 10*3/uL 0.01-0.07 Lab Interpretation (test code = 16079-3) Abnormal [facility] CenterSerum or plasma thyroid stimulating hormone (TSH) btfvokpdhun7713-14-40 10:14:00* Test Item Value Reference Range Interpretation Comme nts Thyroid Stimulating Hormone (TSH) (test code = 3016-3) 2.58 [facility]tr[facility] X84866-03-54 10:14:00* Test Item Value Reference Range Interpretation Comme nts Free Thyroxine (test code = 6646985) 1.18 [facility] CtrSerum or plasma creatine kinase MB (CK-MB) measurement by immunoassay (mass/volume)2024-10-14 10:14:00* Test Item Value Reference Range Interpretation Comme nts Creatine Kinase MB (test cod e = 11654-5) < 1.0 [facility] CtrSerum or plasma cardiac troponin I panel by high sensitivity uhackf9592-28-68 10:14:00* Test Item Value Reference Range Interpretation Comme nts Troponin T High Sensitivity (test code = 62535-5) 8.2 [facility] CtrSerum or plasma thyroid stimulating hormone (TSH) jyvtscwypld7710-26-32 10:14:00* Test Item Value Reference Range Interpretation Comme nts Thyroid Stimulating Hormone (TSH) (test code = 3016-3) 2.58 [facility]09625[facility]81 10:14:00* Test Item Value Reference Range Interpretation Comme nts Free Thyroxine (test code = 8285861) 1.18 [facility] CtrSerum or plasma creatine kinase MB (CK-MB) measurement by immunoassay (mass/volume)2024-10-14 10:14:00* Test Item Value Reference Range Interpretation Comme nts Creatine Kinase MB (test cod e = 81206-5) < 1.0 [facility] CtrSerum or plasma cardiac troponin I panel by high sensitivity hpbars2216-17-77 10:14:00* Test Item Value Reference Range Interpretation Comme nts Troponin T High Sensitivity (test code = 08283-4) 8.2 [facility]woodSerum or plasma thyroid stimulating hormone (TSH) jnmbhszsgkp0498-67-56 10:14:00* Test Item Value Reference Range Interpretation Comme nts Thyroid Stimulating Hormone (TSH) (test code = 3016-3) 2.58 [facility]wood[facility] Q87120-33-46 10:14:00* Test Item Value Reference Range Interpretation Comme nts Free Thyroxine (test code = 4378021) 1.18 [facility] JedNfezylveok9003-50-67 10:09:00* Test Item Value Reference Range Interpretation Comme nts Phosphorus Level (test code = BMB8321) 3.3 [facility] CtrCreatine kinase szztygafbok1056-70-13 10:09:00* Test Item Value Reference Range Interpretation Comme nts Creatine Kinase (test code = 120394313) 32 [facility] NdlCzntdyolpr5956-25-85 10:09:00* Test Item Value Reference Range Interpretation Comme nts Phosphorus Level (test code = RBP3669) 3.3 [facility] CtrCreatine kinase duimpivytad9890-77-82 10:09:00* Test Item Value Reference Range Interpretation Comme nts Creatine Kinase (test code = 536959701) 32 [facility] PqbFrajxmkkir7116-19-39 10:09:00* Test Item Value Reference Range Interpretation Comme nts Phosphorus Level (test code = [id number]) 3.3 [facility] CtrChloride zpaekjyvgcb8954-73-97 05:44:00* Test Item Value Reference Range Interpretation Comme nts Chloride Level (test code = ZAI9525) 105 [facility] CtrSerum or plasma urea nitrogen measurement (mass/volume)2024-10-14 05:44:00* Test Item Value Reference Range Interpretation Comme nts Blood Urea Nitrogen (test co de = 3094-0) 8 [facility] CtrOsmolality hjh2354-53-77 05:44:00* Test Item Value Reference Range Interpretation Comme [facility] Serum Osmolality (test code = SHJ7958) 274 [facility] CtrCreatinine ynwbe6647-19-34 05:44:00* Test Item Value Reference Range Interpretation Comme nts Creatinine (test code = 596516409) 0.43 [facility] CtrEstimated glomerular filtration rate (GFR) oyrmnrvnyrmal3584-52-21 05:44:00* Test Item Value Reference Range Interpretation Comme [facility] Glomerular Filtration Rate C alc (test code = 943850890) > 60.00 [facility] CtrBUN/creatinine byypw0314-18-34 05:44:00* Test Item Value Reference Range Interpretation Comme nts BUN/Creatinine Ratio (test c ode = 63093272) 18.6 [facility] CtrBody fluid potassium augywsesjxh0513-65-38 05:44:00* Test Item Value Reference Range Interpretation Comme nts Potassium Level (test code = 2821-7) 3.8 [facility] FpjJK27962-29-51 05:44:00* Test Item Value Reference Range Interpretation Comme nts Carbon Dioxide Level (test c ode = 87886913) 24 [facility] CtrAnion gap ipwgthtcsws8765-78-17 05:44:00* Test Item Value Reference Range Interpretation Comme nts Anion Gap (test code = 45335760) 12.8 [facility] CtrCalcium xfeoa8672-41-70 05:44:00* Test Item Value Reference Range Interpretation Comme nts Calcium Level (test code = 61146635) 8.7 [facility] CtrAbsolute eosinophil bputm7824-53-41 05:25:00* Test Item Value Reference Range Interpretation Comme [facility] Eosinophils # (Auto) (test c ode = HEU2276) 0.26 [facility] CtrRBC ycnxq1096-84-32 05:25:00* Test Item Value Reference Range Interpretation Comme [facility] Red Blood Count (test code = 53237208) 4.12 [facility] VhrHtfgyzcoaq7383-43-46 05:25:00* Test Item Value Reference Range Interpretation Comme [facility] Hematocrit (test code = 52080221) 32.9 [facility] CtrMCV (mean corpuscular volume) determination 2024-10-14 05:25:00* Test Item Value Reference Range Interpretation Comme [facility] Mean Corpuscular Volume (shailesh t code = 17213-8) 79.9 [facility] CtrMean corpuscular hemoglobin (MCH) determination 2024-10-14 05:25:00* Test Item Value Reference Range Interpretation Comme [facility] Mean Corpuscular Hemoglobin (test code = 40622715) 25.2 [facility] CtrMean corpuscular hemoglobin concentration (MCHC) pslptgqqysphc0668-26-50 05:25:00* Test Item Value Reference Range Interpretation Comme [facility] Mean Corpuscular Hemoglobin Concent (test code = 96132912) 31.6 [facility]woodR[facility] width coefficient of variation 2024-10-14 05:25:00* Test Item Value Reference Range Interpretation Comme [facility] Red Cell Distribution Width (test code = 22278451) 18.2 [facility] CtrPlatelet yelyl9581-56-16 05:25:00* Test Item Value Reference Range Interpretation Comme [facility] Platelet Count (test code = 92643963) 299 [facility] CtrMean platelet iwrhcv9843-61-82 05:25:00* Test Item Value Reference Range Interpretation Comme [facility] Mean Platelet Volume (test c ode = 68644197) 8.9 [facility] CtrNeutrophils seg % jrf3244-82-56 05:25:00* Test Item Value Reference Range Interpretation Comme [facility] Neutrophils (%) (Auto) (test code = 07617-8) 52.7 [facility] CtrAbsolute immature granulocyte ssful7671-47-90 05:25:00* Test Item Value Reference Range Interpretation Comme nts Absolute Immature Granulocyt e (auto (test code = 76460-2) 0.03 [facility] CtrBasophil % ykdyyz9292-61-14 05:25:00* Test Item Value Reference Range Interpretation Comme nts Basophils (%) (Auto) (test c ode = 10712-5) 0.4 [facility] CtrBlood band neutrophils count (number/volume) 2024-10-14 05:25:00* Test Item Value Reference Range Interpretation Comme nts Neutrophils # (Auto) (test c ode = 02886-8) 3.96 [facility] CtrAbsolute lymphocyte bwnhe7882-58-57 05:25:00* Test Item Value Reference Range Interpretation Comme nts Lymphocytes # (Auto) (test c ode = 24453-4) 2.63 [facility] CtrAbsolute basophil mxqii8342-93-46 05:25:00* Test Item Value Reference Range Interpretation Comme nts Basophils # (Auto) (test cod e = 12776998) 0.03 [facility] CtrAbsolute NRBC tklpg1979 05:25:00* Test Item Value Reference Range Interpretation Comme nts Nucleated Red Blood Cells # (test code = 584526480) 0 [facility] VtrEmoysmvvx3401-89-04 01:01:00* Test Item Value Reference Range Interpretation Comme nts Magnesium Level (test code = 61962578) 1.8 [facility] CtrTriglycerides ysncy4215-98-76 01:01:00* Test Item Value Reference Range Interpretation Comme nts Triglycerides Level (test co de = TAX1738) 193 [facility] ZpaVSD9596-94-74 01:01:00* Test Item Value Reference Range Interpretation Comme nts HDL Cholesterol (test code = 73852901) 41 [facility] CtrLDL cholesterol, jsnxqw9412-10-76 01:01:00* Test Item Value Reference Range Interpretation Comme nts LDL Cholesterol (test code = 750179871) 102 [facility] CtrCholesterol/HDL wlvmq4893-96-87 01:01:00* Test Item Value Reference Range Interpretation Comme nts Coronary Heart Disease Risk Ratio (test code = 596111734) 4.170 [facility] GiuZxvlpgtsq8005-70-89 01:01:00* Test Item Value Reference Range Interpretation Comme nts Magnesium Level (test code = 29831939) 1.8 [facility] CtrTriglycerides srlgm8795-40-31 01:01:00* Test Item Value Reference Range Interpretation Comme nts Triglycerides Level (test co de = FQL4102) 193 [facility] DdxKYS0904-26-04 01:01:00* Test Item Value Reference Range Interpretation Comme nts HDL Cholesterol (test code = 54330102) 41 [facility] CtrLDL cholesterol, duheoa8631-38-97 01:01:00* Test Item Value Reference Range Interpretation Comme nts LDL Cholesterol (test code = 040028955) 102 [facility] CtrCholesterol/HDL ditqe6341-14-69 01:01:00* Test Item Value Reference Range Interpretation Comme nts Coronary Heart Disease Risk Ratio (test code = 692676583) 4.170 [facility] RxuFvbrfxewe6797-79-76 01:01:00* Test Item Value Reference Range Interpretation Comme nts Magnesium Level (test code = 44403129) 1.8 [facility] CtrTriglycerides ahkmo1450-14-97 01:01:00* Test Item Value Reference Range Interpretation Comme nts Triglycerides Level (test co de = GBK3724) 193 [facility] BrownwoodHDL2025-04-09 01:01:00* Test Item Value Reference Range Interpretation Comme nts HDL Cholesterol (test code = 80574432) 41 [facility] CtrLDL cholesterol, glmsvi3763-39-21 01:01:00* Test Item Value Reference Range Interpretation Comme nts LDL Cholesterol (test code = 062787554) 102 [facility] CtrCholesterol/HDL exyvx7589-16-66 01:01:00* Test Item Value Reference Range Interpretation Comme nts Coronary Heart Disease Risk Ratio (test code = 102363320) 4.170 [facility] CtrHemoglobin Y8b8088-63-75 00:04:00* Test Item Value Reference Range Interpretation Comme nts Hemoglobin A1c (test code = 38343-2) 5.4 [facility] CtrHemoglobin P7e6806-47-27 00:04:00* Test Item Value Reference Range Interpretation Comme nts Hemoglobin A1c (test code = 23279-2) 5.4 [facility] CtrHemoglobin F8b1735-78-98 00:04:00* Test Item Value Reference Range Interpretation Comme nts Hemoglobin A1c (test code = 25978-1) 5.4 [facility] CtrHCG ur GL7782-40-24 20:31:00* Test Item Value Reference Range Interpretation Comme nts Urine HCG, Qualitative (test code = 2106-3) NEGATIVE [facility] CtrNT-proBNP terwwllbhfi0502-89-63 20:02:00* Test Item Value Reference Range Interpretation Comme nts TF-Gza-A-Type Natriuretic Pe ptide (test code = 130921577) 57 [facility] CtrNT-proBNP hxxaxilgpit3938-07-47 20:02:00* Test Item Value Reference Range Interpretation Comme nts PH-Pud-P-Type Natriuretic Pe ptide (test code = 307412711) 57 [facility] NpiE-fuvfc3238-95-08 20:01:00* Test Item Value Reference Range Interpretation Comme nts D-Dimer (test code = 849899141) 246 [facility] VloG-ftzvt9728-29-08 20:01:00* Test Item Value Reference Range Interpretation Comme nts D-Dimer (test code = 832624227) 246 [facility] GimCtivss3904-98-33 20:00:00* Test Item Value Reference Range Interpretation Comme nts Lipase (test code = 607327499) 27 [facility] CtrBilirubin kxeit2284-69-46 19:57:00* Test Item Value Reference Range Interpretation Comme nts Total Bilirubin (test code = GYR7289) < 0.2 [facility] OqlZGC8017-74-27 19:57:00* Test Item Value Reference Range Interpretation Comme nts Aspartate Amino Transf (AST/ SGOT) (test code = YMD3101) 14 [facility] CtrGlobulin gzw3534-11-96 19:57:00* Test Item Value Reference Range Interpretation Comme nts Globulin (test code = 872134714) 2.5 [facility] CtrALT (SGPT) ser/fgyk0023-55-22 19:57:00* Test Item Value Reference Range Interpretation Comme nts Alanine Aminotransferase (AL T/SGPT) (test code = 1742-6) 11 [facility] CtrALP ser/vohr2260-04-10 19:57:00* Test Item Value Reference Range Interpretation Comme nts Total Alkaline Phosphatase ( test code = 6768-6) 65 [facility] CtrProthrombin bbfm9204-72-01 19:53:00* Test Item Value Reference Range Interpretation Comme nts Prothrombin Time (test code = 618702911) 10.5 [facility] BrownwoodWhole blood INR glihboytqxp4750-86-85 19:53:00* Test Item Value Reference Range Interpretation Comme nts Prothromb Time International Ratio (test code = 23740-4) 0.96 [facility] CtrActivated partial thromboplastin time (aPTT) in platelet poor plasma by coagulation ymrju6950-13-46 19:53:00* Test Item Value Reference Range Interpretation Comme nts Activated Partial Thrombopla st Time (test code = 63496-1) 24.2 [facility] CtrProthrombin jcfg1640-59-77 19:53:00* Test Item Value Reference Range Interpretation Comme nts Prothrombin Time (test code = 807953686) 10.5 [facility] BrownwoodWhole blood INR cujmtensdsq3064-74-30 19:53:00* Test Item Value Reference Range Interpretation Comme nts Prothromb Time International Ratio (test code = 95651-6) 0.96 [facility] CtrActivated partial thromboplastin time (aPTT) in platelet poor plasma by coagulation gpsdx4065-16-95 19:53:00* Test Item Value Reference Range Interpretation Comme nts Activated Partial Thrombopla st Time (test code = 46661-9) 24.2 [facility] CtrRBC count ur obog3782-98-76 19:51:00* Test Item Value Reference Range Interpretation Comme nts Urine RBC (test code = 798-9) 0-2 [facility] CtrUrine examination for white blood cells (WBC) 2024-10-13 19:51:00* Test Item Value Reference Range Interpretation Comme nts Urine WBC (test code = 554390563) 3-5 [facility] CtrAutomated epithelial cells count in urine sediment (number/area)2024-10-13 19:51:00* Test Item Value Reference Range Interpretation Comme nts Urine Epithelial Cells (test code = 76809-9) More than 20/HPF [facility] CtrBacteria detection in urine sediment by light qbotcygltg6226-83-66 19:51:00* Test Item Value Reference Range Interpretation Comme nts Urine Bacteria (test code = 27900-2) Occasional [facility] BrownwoodUrine casts detection by automated method 2024-10-13 19:51:00* Test Item Value Reference Range Interpretation Comme nts Urine Casts (test code = 61219-2) 0-2 [facility] CtrColor of Urine by Pfpo2183-56-74 19:46:00* Test Item Value Reference Range Interpretation Comme nts Urine Color (test code = 22587-3) Yellow [facility] CtrAppearance of Tmknz6948-99-30 19:46:00* Test Item Value Reference Range Interpretation Comme nts Urine Appearance (test code = 5767-9) Cloudy [facility]woodUrine glucose xjgdcnlmb6293-14-08 19:46:00* Test Item Value Reference Range Interpretation Comme nts Urine Glucose (UA) (test cod e = 2349-9) Negative [facility] CtrBilirubin wz6065-73-67 19:46:00* Test Item Value Reference Range Interpretation Comme nts Urine Bilirubin (test code = 800489225) Negative [facility] CtrKetones jp4083-40-22 19:46:00* Test Item Value Reference Range Interpretation Comme nts Urine Ketones (test code = 95891430) Negative [facility] CtrSpecific gravity of Urine by Automated test strip 2024-10-13 19:46:00* Test Item Value Reference Range Interpretation Comme nts Urine Specific [place] (test code = 66836-7) 1.025 [facility] BrownwoodUrine blood npmtxyrnh8996-06-36 19:46:00* Test Item Value Reference Range Interpretation Comme nts Urine Blood (test code = 607623-8) Negative [facility] CtrpH yn1787-14-87 19:46:00* Test Item Value Reference Range Interpretation Comme nts Urine pH (test code = 2756-5) 5.500 [facility] CtrProtein iy5693-81-08 19:46:00* Test Item Value Reference Range Interpretation Comme nts Urine Protein (test code = 89899015) Negative [facility] CtrUrobilinogen, urine, gv6965-51-75 19:46:00* Test Item Value Reference Range Interpretation Comme nts Urine Urobilinogen (test cod e = 035159578) 1.0 [facility] BrownwoodUrine nitrate mdcyjvgxk7940-20-44 19:46:00* Test Item Value Reference Range Interpretation Comme [facility] Urine Nitrate (test code = 34123-3) Negative [facility] BrownwoodUrine leukocyte esterase bduupnobb8616-85-93 19:46:00* Test Item Value Reference Range Interpretation Comme [facility] Urine Leukocyte Esterase (te st code = 395554-7) Negative [facility] CtrTroponin S2316-56-48 07:13:54* Test Item Value Reference Range Interpretation Comme nts TROPONIN I (test code = 9990290663) 0.002 ng/mL <=0.034 DARWIN (test code = [...] of biotin. Lab Interpretation (test code = 35838-1) Normal [facility] Center[facility]roponin O1051-22-04 05:06:47* Test Item Value Reference Range Interpretation Comme nts TROPONIN I (test code = 2064536532) 0.001 ng/mL <=0.034 DARWIN (test code = [...] of biotin. Lab Interpretation (test code = 78571-5) Normal [facility] CenterN-Terminal Nqs-Cjc0232-60-08 05:04:06* Test Item Value Reference Range Interpretation Comme nts NT-proBNP (test code = 84741-9) 110 pg/mL <=125 Lab Interpretation (test cod e = 87578-1) Normal [facility] CenterComp. Metabolic Panel (66146)2024-10-13 04:55:24* Test Item Value Reference Range Interpretation Comme nts NA (test code = 0081764004) 135 mmol/L 135-145 K (test code = 5386650781) 3.5 mmol/L 3.5-5.0 CL (test code = 5278366277) 104 mmol/L 98-108 CO2 TOTAL (test code = 8663191929) 25 mmol/L 23-31 AGAP (test code = 3899785359) 6 2-16 BUN (test code = 9965916697) 12 mg/dL 7-23 GLUCOSE (test code = 3308790909) 83 mg/dL 70-110 CREATININE (test code = 2160-0) 0.55 mg/dL 0.50-1.04 TOTAL BILI (test code = 7453118760) 0.2 mg/dL 0.1-1.1 CALCIUM (test code = 0923653261) 9.2 mg/dL 8.6-10.6 T PROTEIN (test code = 5257228291) 6.3 g/dL 6.3-8.2 ALBUMIN (test code = 9807566938) 3.5 g/dL 3.5-5.0 ALK PHOS (test code = 7578538981) 58 U/L 34-122 ALTv (test code = 1742-6) 12 U/L 5-35 AST(SGOT) (test code = 9907099599) 13 U/L 13-40 eGFR (test code = 98448-4) 115.4 mL/min/1.73m2 CKD-EPI eGFR (20 21). Assuming creatinine has been stable day-to-day for at least three months, the eGFR indicates Category G1 (>= 90 mL/min/1.73 m2) [facility] CenterLipase2025-04-08 04:55:03* Test Item Value Reference Range Interpretation Comme nts LIPASE (test code = 0486331569) 80 U/L 0-220 Lab Interpretation (test cod e = 51708-2) Normal [facility] CenterCb with Dikg9076-64-95 04:41:23* Test Item Value Reference Range Interpretation [...] 32.1 g/dL 31.6-35.1 RDW-SD (test code = 53804-8) 51.6 fL 39.0-49.9 H RDW-CV (test code = 788-0) 17.9 % 12.0-15.5 H PLT (test code = 777-3) 328 166-358 MPV (test code = 99849-3) 8.9 fL 9.5-12.9 L NRBC/100 WBC (test code = 5058414459) 0.0 0.0-10.0 NRBC x10^3 (test code = 4671950674) See_Comment [Automated messa ge] The system which generated this result transmitted reference range: 10*3/?L. The reference range was not used to interpret this result as normal/abnormal. GRAN MAT (NEUT) % (test code = 770-8) 60.6 % IMM GRAN % (test code = 0945061571) 0.60 % LYMPH % (test code = 736-9) 31.0 % MONO % (test code = 5905-5) 5.9 % EOS % (test code = 713-8) 1.5 % BASO % (test code = 706-2) 0.4 % GRAN MAT x10^3(ANC) (test code = 2667277097) 6.12 10*3/uL 1.88-7.09 IMM GRAN x10^3 (test code = 8671320392) 0.06 10*3/uL 0.00-0.06 LYMPH x10^3 (test code = 731-0) 3.13 10*3/uL 1.32-3.29 MONO x10^3 (test code = 742-7) 0.60 10*3/uL 0.33-0.92 EOS x10^3 (test code = 711-2) 0.15 10*3/uL 0.03-0.39 BASO x10^3 (test code = 704-7) 0.04 10*3/uL 0.01-0.07 Lab Interpretation (test code = 06962-0) [facility]normal [facility] CenterPOCT SCGN6782-82-95 03:46:00* Test Item Value Reference Range Interpretation Comme nts POCT PREG (test code = 1605) Negative On board controls acceptable with C Line (test code = 3574) Yes POCT PREG LOT # (test code = 3575) [id number] POCT PREG TEST DATE ( test code = 3576) 11/30/2025 Lab Interpretation (test cod e = 10406-7) Normal [facility] CenterCT Chest pulmonary todvfrmjf5968-38-12 06:33:58Exam: CT Angiography Chest with Contrast, 07/18/2024 [...] spleen. Osseous: No acute osseous finding. [facility] CenterCT Abdomen pelvis w uoaivhvh7552-59-60 06:50:04Exam: CT Abdomen and Pelvis With Contrast, [...] Osseous/Soft Tissues: Unremarkable. [facility] CenterPOCT ZVXK0838-53-13 05:33:00* Test Item Value Reference Range Interpretation Comme nts POCT PREG (test code = 1605) Negative On board controls acceptable with C Line (test code = 3574) Yes POCT PREG LOT # (test code = 3575) [id number] POCT PREG TEST DATE ( test code = 3576) 2025-06-22 Lab Interpretation (test cod e = 74188-1) Normal [facility] CenterComplete Metabolic Ulrhn1365-21-25 04:06:42* Test Item Value Reference Range Interpretation Comme [facility] NA (test code = 4679957855) 139 mmol/L 135-145 K (test code = 5950223838) 3.5 mmol/L 3.5-5.0 CL (test code = 2643531091) 105 mmol/L 98-108 CO2 TOTAL (test code = 7138332980) 26 mmol/L 23-31 AGAP (test code = 0141595510) 8 2-16 BUN (test code = 1277802354) 5 mg/dL 7-23 L GLUCOSE (test code = 4013565574) 101 mg/dL 70-110 CREATININE (test code = 2160-0) 0.58 mg/dL 0.50-1.04 TOTAL BILI (test code = 6922203545) 0.1-1.1 L CALCIUM (test code = 5311352963) 9.3 mg/dL 8.6-10.6 T PROTEIN (test code = 2284290859) 6.8 g/dL 6.3-8.2 ALBUMIN (test code = 8287616870) 3.9 g/dL 3.5-5.0 ALK PHOS (test code = 0719561199) 74 U/L 34-122 ALTv (test code = 1742-6) 17 U/L 5-35 AST(SGOT) (test code = 2703872298) 28 U/L 13-40 eGFR (test code = 47038-5) 113.9 mL/min/1.73m2 CKD-EPI eGFR (2020). Assuming creatinine has been stable day-to-day for at least three months, the eGFR indicates Category G1 (>= 90 mL/min/1.73 m2) Lab Interpretation (test code = 65141-9) Abnormal [facility] CenterLipase, Ekhva9177-39-24 04:01:05* Test Item Value Reference Range Interpretation Comme nts LIPASE (test code = 7997231516) 80 U/L 0-220 Lab Interpretation (test cod e = 44355-2) Normal [facility] CenterCBC with Nibwgziyeemy7167-00-15 03:46:26* Test Item Value Reference Range Interpretation [...] 33.2 g/dL 31.6-35.1 RDW-SD (test code = 30791-5) 42.5 fL 39.0-49.9 RDW-CV (test code = 788-0) 14.6 % 12.0-15.5 PLT (test code = 777-3) 327 166-358 MPV (test code = 57243-9) 9.3 fL 9.5-12.9 L NRBC/100 WBC (test code = 2803117117) 0.0 0.0-10.0 NRBC x10^3 (test code = 0905896865) See_Comment [Automated messa ge] The system which generated this result transmitted reference range: 10*3/?L. The reference range was not used to interpret this result as normal/abnormal. GRAN MAT (NEUT) % (test code = 770-8) 65.7 % IMM GRAN % (test code = 7324365658) 0.50 % LYMPH % (test code = 736-9) 26.4 % MONO % (test code = 5905-5) 5.6 % EOS % (test code = 713-8) 1.4 % BASO % (test code = 706-2) 0.4 % GRAN MAT x10^3(ANC) (test code = 6343294565) 8.21 10*3/uL 1.88-7.09 H IMM GRAN x10^3 (test code = 6696772005) 0.06 10*3/uL 0.00-0.06 LYMPH x10^3 (test code = 731-0) 3.30 10*3/uL 1.32-3.29 H MONO x10^3 (test code = 742-7) 0.70 10*3/uL 0.33-0.92 EOS x10^3 (test code = 711-2) 0.17 10*3/uL 0.03-0.39 BASO x10^3 (test code = 704-7) 0.05 10*3/uL 0.01-0.07 Lab Interpretation (test code = 59549-9) [facility]normal [facility] CenterCT [facility] pelvis w tttgfyvv1907-24-16 05:39:04CT ABDOMEN PELVIS W CONTRAST HISTORY: 44 [...] TISSUES: No suspicious lytic or sclerotic bony lesions.[facility]. Metabolic Panel (26381)2024-06-15 05:12:33* Test Item Value Reference Range Interpretation Comme nts NA (test code = 9058492044) 139 mmol/L 135-145 K (test code = 5836378354) 3.7 mmol/L 3.5-5.0 CL (test code = 6919728922) 109 mmol/L 98-108 H CO2 TOTAL (test code = 0216826264) 23 mmol/L 23-31 AGAP (test code = 9006070380) 7 2-16 BUN (test code = 0044549724) 6 mg/dL 7-23 L GLUCOSE (test code = 1046615874) 101 mg/dL 70-110 CREATININE (test code = 2160-0) 0.67 mg/dL 0.50-1.04 TOTAL BILI (test code = 1609560197) 0.1-1.1 L CALCIUM (test code = 6283772220) 9.4 mg/dL 8.6-10.6 T PROTEIN (test code = 9783776738) 7.0 g/dL 6.3-8.2 ALBUMIN (test code = 5599966738) 4.0 g/dL 3.5-5.0 ALK PHOS (test code = 2308310512) 87 U/L 34-122 ALTv (test code = 1742-6) 28 U/L 5-35 AST(SGOT) (test code = 4298318900) 24 U/L 13-40 eGFR (test code = 33936-0) 110.0 mL/min/1.73m2 CKD-EPI eGFR (2020). Assuming creatinine has been stable day-to-day for at least three months, the eGFR indicates Category G1 (>= 90 mL/min/1.73 m2) Lab Interpretation (test code = 67811-2) Abnormal [facility] CenterTroponin H7567-13-17 05:03:33* Test Item Value Reference Range Interpretation Comme nts TROPONIN I (test code = 2529921235) 0.000 ng/mL <=0.034 DARWIN (test code = [...] of biotin. Lab Interpretation (test code = 46800-4) Normal [facility] CenterLipase2024-12-09 04:51:35* Test Item Value Reference Range Interpretation Comme nts LIPASE (test code = 9287176561) 94 U/L 0-220 Lab Interpretation (test cod e = 83987-7) Normal [facility] CenterPregnancy Test, Xfufu9576-01-11 04:51:30* Test Item Value Reference Range Interpretation Comme nts PREG SERUM (test code = 1653465039) Negative DARWIN (test code = DARWIN) Less than 10 IU/L. ?If low titer or ectopic is suspected, resubmit specimen in 48-72 hours. [facility] CenterCb with Gxen5028-98-55 04:36:57* Test Item Value Reference Range Interpretation [...] 32.9 g/dL 31.6-35.1 RDW-SD (test code = 85425-8) 44.3 fL 39.0-49.9 RDW-CV (test code = 788-0) 15.0 % 12.0-15.5 PLT (test code = 777-3) 347 166-358 MPV (test code = 15709-9) 9.4 fL 9.5-12.9 L NRBC/100 WBC (test code = 5907802601) 0.0 0.0-10.0 NRBC x10^3 (test code = 5526471522) See_Comment [Automated messa ge] The system which generated this result transmitted reference range: 10*3/?L. The reference range was not used to interpret this result as normal/abnormal. GRAN MAT (NEUT) % (test code = 770-8) 60.2 % IMM GRAN % (test code = 7160934209) 0.40 % LYMPH % (test code = 736-9) 31.3 % MONO % (test code = 5905-5) 5.8 % EOS % (test code = 713-8) 1.8 % BASO % (test code = 706-2) 0.5 % GRAN MAT x10^3(ANC) (test code = 8009434016) 6.36 10*3/uL 1.88-7.09 IMM GRAN x10^3 (test code = 7032337650) 0.04 10*3/uL 0.00-0.06 LYMPH x10^3 (test code = 731-0) 3.30 10*3/uL 1.32-3.29 H MONO x10^3 (test code = 742-7) 0.61 10*3/uL 0.33-0.92 EOS x10^3 (test code = 711-2) 0.19 10*3/uL 0.03-0.39 BASO x10^3 (test code = 704-7) 0.05 10*3/uL 0.01-0.07 Lab Interpretation (test code = 36754-8) [facility] [id number] 07:55:17* Test Item Value Reference Range Interpretation Comme nts TROPONIN I (test code = 9853628839) 0.000 ng/mL <=0.034 DARWIN (test code = [...] of biotin. Lab Interpretation (test code = 01876-5) [facility] 1 [id number] 06:16:28Exam: Chest (1 View), 06/06/2024 11:30 PM. Ordering Physician: BOB GARCIA. History: Chest pain. Technique: AP view of the chest. Technical Quality: Adequate. Comparison: Chest radiograph 05/17/2024. Findings: Normal cardiac silhouette size. ?No airspace consolidation, pleuraleffusion, or pneumothorax. No acute osseous abnormality.[facility] [id number] 05:19:00* Test Item Value Reference Range Interpretation Comme nts POCT PREG (test code = 1605) Negative On board controls acceptable with C Line (test code = 3574) Yes POCT PREG LOT # (test code = 3575) [id number] POCT PREG TEST DATE ( test code = 3576) 04/11/2025 Lab Interpretation (test cod e = 47576-9) Normal [facility] CenterTroponin [id number] 05:00:24* Test Item Value Reference Range Interpretation Comme nts TROPONIN I (test code = 6033101422) 0.000 ng/mL <=0.034 DARWIN (test code = [...] of biotin. Lab Interpretation (test code = 19985-0) Normal [facility]. Metabolic Panel (72559)2024-06-07 05:00:19* Test Item Value Reference Range Interpretation Comme nts NA (test code = 9263718283) 139 mmol/L 135-145 K (test code = 1492524721) 3.6 mmol/L 3.5-5.0 CL (test code = 4049972805) 108 mmol/L 98-108 CO2 TOTAL (test code = 9005190462) 22 mmol/L 23-31 L AGAP (test code = 8797384000) 9 2-16 BUN (test code = 0943827838) 10 mg/dL 7-23 GLUCOSE (test code = 2718263091) 144 mg/dL 70-110 H CREATININE (test code = 2160-0) 0.62 mg/dL 0.50-1.04 TOTAL BILI (test code = 5306512523) 0.1-1.1 L CALCIUM (test code = 5372454449) 9.2 mg/dL 8.6-10.6 T PROTEIN (test code = 8126490577) 6.5 g/dL 6.3-8.2 ALBUMIN (test code = 4462762002) 3.7 g/dL 3.5-5.0 ALK PHOS (test code = 3634970022) 69 U/L 34-122 ALTv (test code = 1742-6) 14 U/L 5-35 AST(SGOT) (test code = 9123670397) 15 U/L 13-40 eGFR (test code = 70395-6) 112.1 mL/min/1.73m2 CKD-EPI eGFR (2020). Assuming creatinine has been stable day-to-day for at least three months, the eGFR indicates Category G1 (>= 90 mL/min/1.73 m2) Lab Interpretation (test code = 34687-9) Abnormal [facility] with Sdth0680-55-48 04:38:25* Test Item Value Reference Range Interpretation [...] 32.8 g/dL 31.6-35.1 RDW-SD (test code = 66974-0) 44.1 fL 39.0-49.9 RDW-CV (test code = 788-0) 14.9 % 12.0-15.5 PLT (test code = 777-3) 358 166-358 MPV (test code = 40243-1) 9.4 fL 9.5-12.9 L NRBC/100 WBC (test code = 7568572892) 0.0 0.0-10.0 NRBC x10^3 (test code = 0050033156) See_Comment [Automated messa ge] The system which generated this result transmitted reference range: 10*3/?L. The reference range was not used to interpret this result as normal/abnormal. GRAN MAT (NEUT) % (test code = 770-8) 58.2 % IMM GRAN % (test code = 6703175488) 0.40 % LYMPH % (test code = 736-9) 34.1 % MONO % (test code = 5905-5) 4.7 % EOS % (test code = 713-8) 2.3 % BASO % (test code = 706-2) 0.3 % GRAN MAT x10^3(ANC) (test code = 8773104897) 5.33 10*3/uL 1.88-7.09 IMM GRAN x10^3 (test code = 1032824493) 0.04 10*3/uL 0.00-0.06 LYMPH x10^3 (test code = 731-0) 3.12 10*3/uL 1.32-3.29 MONO x10^3 (test code = 742-7) 0.43 10*3/uL 0.33-0.92 EOS x10^3 (test code = 711-2) 0.21 10*3/uL 0.03-0.39 BASO x10^3 (test code = 704-7) 0.03 10*3/uL 0.01-0.07 Lab Interpretation (test code = 88814-7) [facility] WO [id number] 18:53:41EXAM: CT HEAD WO CONTRAST HISTORY: 44 [...] unremarkable.[facility]XR FOREARM 2 VW [id number] 04:08:39EXAM: XR HAND 3+ VW RIGHT, XR [...] swelling.[facility] HAND 3+ VW KHMCV4301-21-66 04:08:39EXAM: XR HAND 3+ VW RIGHT, XR [...] radiopaqueforeign body. Mild diffuse soft tissue [facility]OW <3 VW [id number] 04:08:39EXAM: XR HAND 3+ VW RIGHT, XR [...] radiopaqueforeign body. Mild diffuse soft tissue swelling. [facility] MAXILLOFACIAL/MANDIBLE WO CONTRAST 2024-05-18 03:36:27ORDERING PHYSICIAN:TAMMY [...] evidence of retrobulbar hematomas or retroconal fatstranding.[facility] CERVICAL SPINE WO CONTRAST 2024-05-18 03:28:19ORDERING PHYSICIAN: ? TAMMY ?ESTELA HISTORY: Neck trauma, dangerous injury mechanism [...] tissues arenormal. The visualized lung apices are clear.[facility] Fdmt0015-42-64 02:00:00* Test Item Value Reference Range Interpretation Comme nts POCT PREG (test code = 1605) Negative On board controls acceptable with C Line (test code = 3574) Yes Lab Interpretation (test cod e = 28649-4) Normal [facility]. Metabolic Panel (67027)2024-05-08 01:19:56* Test Item Value Reference Range Interpretation Comme nts NA (test code = 9759953612) 139 mmol/L 135-145 K (test code = 5551932487) 3.3 mmol/L 3.5-5.0 L CL (test code = 7269557266) 107 mmol/L 98-108 CO2 TOTAL (test code = 8336203138) 22 mmol/L 23-31 L AGAP (test code = 7842513513) 10 2-16 BUN (test code = 7533464540) 5 mg/dL 7-23 L GLUCOSE (test code = 8474861014) 131 mg/dL 70-110 H CREATININE (test code = 2160-0) 0.72 mg/dL 0.50-1.04 TOTAL BILI (test code = 9171847131) 0.1-1.1 L CALCIUM (test code = 1546195118) 9.3 mg/dL 8.6-10.6 T PROTEIN (test code = 0913524469) 7.0 g/dL 6.3-8.2 ALBUMIN (test code = 4960383506) 4.1 g/dL 3.5-5.0 ALK PHOS (test code = 8148459315) 76 U/L 34-122 ALTv (test code = 1742-6) 27 U/L 5-35 AST(SGOT) (test code = 7884751942) 30 U/L 13-40 eGFR (test code = 58781-0) 105.2 mL/min/1.73m2 CKD-EPI eGFR (2020). Assuming creatinine has been stable day-to-day for at least three months, the eGFR indicates Category G1 (>= 90 mL/min/1.73 m2) Lab Interpretation (test code = 90142-5) [facility]normal [facility] CenterTroponin [id number] 01:18:54* Test Item Value Reference Range Interpretation Comme nts TROPONIN I (test code = 5134073510) 0.003 ng/mL <=0.034 DARWIN (test code = [...] of biotin. Lab Interpretation (test code = 04185-6) Normal [facility] CenterMagnesium2024-11-01 01:07:50* Test Item Value Reference Range Interpretation Comme nts MAGNESIUM (test code = 6458459969) 1.7 mg/dL 1.7-2.4 Lab Interpretation (test cod e = 82371-6) Normal [facility] CenterLipase2024-11-01 01:07:30* Test Item Value Reference Range Interpretation Comme nts LIPASE (test code = 4008839232) 97 U/L 0-220 Lab Interpretation (test cod e = 44351-7) Normal [facility] CenterCb with Fdsg3327-49-94 00:51:30* Test Item Value Reference Range Interpretation [...] 33.2 g/dL 31.6-35.1 RDW-SD (test code = 11532-4) 43.6 fL 39.0-49.9 RDW-CV (test code = 788-0) 14.8 % 12.0-15.5 PLT (test code = 777-3) 382 166-358 H MPV (test code = 08785-0) 9.7 fL 9.5-12.9 NRBC/100 WBC (test code = 0773364724) 0.0 0.0-10.0 NRBC x10^3 (test code = 5099389671) See_Comment [Automated messa ge] The system which generated this result transmitted reference range: 10*3/?L. The reference range was not used to interpret this result as normal/abnormal. GRAN MAT (NEUT) % (test code = 770-8) 63.3 % IMM GRAN % (test code = 1331532625) 0.40 % LYMPH % (test code = 736-9) 27.5 % MONO % (test code = 5905-5) 5.4 % EOS % (test code = 713-8) 2.9 % BASO % (test code = 706-2) 0.5 % GRAN MAT x10^3(ANC) (test code = 0519588587) 7.25 10*3/uL 1.88-7.09 H IMM GRAN x10^3 (test code = 2279071114) 0.05 10*3/uL 0.00-0.06 LYMPH x10^3 (test code = 731-0) 3.15 10*3/uL 1.32-3.29 MONO x10^3 (test code = 742-7) 0.62 10*3/uL 0.33-0.92 EOS x10^3 (test code = 711-2) 0.33 10*3/uL 0.03-0.39 BASO x10^3 (test code = 704-7) 0.06 10*3/uL 0.01-0.07 Lab Interpretation (test code = 40685-3) Abnormal [facility] or plasma cardiac troponin I panel by high sensitivity qzxeim7147-12-55 17:16:00* Test Item Value Reference Range Interpretation Comme nts Troponin T High Sensitivity (test code = 89110-8) < 6.0 [facility] CtrSer[facility] or plasma glucose measurement (mass/volume) 2024-04-10 17:14:00* Test Item Value Reference Range Interpretation Comme nts Random Glucose (test code = 2345-7) 109 [facility] CtrSerum or plasma urea nitrogen measurement (mass/volume)2024-04-10 17:14:00* Test Item Value Reference Range Interpretation Comme nts Blood Urea Nitrogen (test co de = 3094-0) 4 [facility] InfUKV4910-00-97 17:14:00* Test Item Value Reference Range Interpretation Comme nts Aspartate Amino Transf (AST/ SGOT) (test code = UBO4904) 14 [facility] CtrBilirubin lxegb9775-14-13 17:14:00* Test Item Value Reference Range Interpretation Comme nts Total Bilirubin (test code = TXW4950) < 0.2 [facility] CtrEstimated glomerular filtration rate (GFR) uxrbalijsrvlq1940-38-64 17:14:00* Test Item Value Reference Range Interpretation Comme nts Glomerular Filtration Rate C alc (test code = 223907034) > 60.00 [facility] CtrBUN/creatinine kzuqq0180-75-12 17:14:00* Test Item Value Reference Range Interpretation Comme nts BUN/Creatinine Ratio (test c ode = 32470934) 7.3 [facility] ZfrNT55259-30-47 17:14:00* Test Item Value Reference Range Interpretation Comme nts Carbon Dioxide Level (test c ode = 86391968) 22 [facility] CtrAnion gap pkdhqxsmnxw3151-90-25 17:14:00* Test Item Value Reference Range Interpretation Comme nts Anion Gap (test code = 01189277) 16.6 [facility] CtrCalcium qplyh7820-91-50 17:14:00* Test Item Value Reference Range Interpretation Comme nts Calcium Level (test code = 25527746) 9.9 [facility] CtrGlobulin dbx4006-76-40 17:14:00* Test Item Value Reference Range Interpretation Comme nts Globulin (test code = 808168990) 3.1 [facility] CtrALT (SGPT) ser/larh6874-65-48 17:14:00* Test Item Value Reference Range Interpretation Comme nts Alanine Aminotransferase (AL T/SGPT) (test code = 1742-6) 10 [facility] CtrAmylase dsjsk5283-48-09 17:14:00* Test Item Value Reference Range Interpretation Comme nts Amylase Level (test code = 1798-8) 48 [facility] JnqSpgphn9722-88-78 17:14:00* Test Item Value Reference Range Interpretation Comme nts Lipase (test code = 49401638) 24 [facility] CtrALP ser/zvea4407-55-74 17:14:00* Test Item Value Reference Range Interpretation Comme nts Total Alkaline Phosphatase ( test code = 6768-6) 92 [facility] CtrUrine hydrocodone measurement (mass/volume) 2024-04-10 17:13:00* Test Item Value Reference Range Interpretation Comme nts Hydrocodone Level (test code = 3681-4) NEGATIVE [facility] CtrUrine fentanyl measurement by confirmatory method (mass/volume)2024-04-10 17:13:00* Test Item Value Reference Range Interpretation Comme nts Urine Fentanyl Screen (test code = 52554-2) NEGATIVE [facility] CtrPhencyclidine (PCP) ba3973-84-78 17:13:00* Test Item Value Reference Range Interpretation Comme nts Urine Phencyclidine (PCP) [place] edilson (test code = 402441088) NEGATIVE [facility] CtrPropoxyphene [Mass/volume] in Ohvhq7201-51-49 17:13:00* Test Item Value Reference Range Interpretation Comme nts Propoxyphene Level (test cod e = 3545-1) NEGATIVE [facility] CtroxyCODONE [Mass/volume] in Bylao3164-19-56 17:13:00* Test Item Value Reference Range Interpretation Comme nts Oxycodone Level (test code = 56573-0) NEGATIVE [facility] CtrAmphetamine ur fvpuer2568-14-13 17:13:00* Test Item Value Reference Range Interpretation Comme nts Urine Amphetamines Screen (t est code = 46685-4) NEGATIVE [facility] NukFqnengyks7684-93-25 17:13:00* Test Item Value Reference Range Interpretation Comme nts Methadone Level (test code = FRS1736) NEGATIVE [facility] CtrBenzodiazepines screen hh7762-50-55 17:13:00* Test Item Value Reference Range Interpretation Comme nts Urine Benzodiazepines Screen (test code = 558818582) POSITIVE [facility] CtrCannabinoids (7-oeymkfz-EZX) qmatjqfgkis8302-20-20 17:13:00* Test Item Value Reference Range Interpretation Comme nts Urine Cannabinoids (test cod e = 853168441) NEGATIVE [facility] CtrCocaine metabolite zkxcmo8796-07-97 17:13:00* Test Item Value Reference Range Interpretation Comme nts Urine Cocaine Metabolite (te st code = 823306992) NEGATIVE [facility] CtrOpiates qdeuo8097-73-56 17:13:00* Test Item Value Reference Range Interpretation Comme nts Urine Opiates Screen (test c ode = 258844219) NEGATIVE [facility] CtrUrine leukocyte esterase lkyuxjsxp9260-88-47 17:10:00* Test Item Value Reference Range Interpretation Comme nts Urine Leukocyte Esterase (te st code = 721995007) 3+ [facility] CtrRBC count ur znsq5453-20-92 17:08:00* Test Item Value Reference Range Interpretation Comme nts Urine RBC (test code = 798-9) 0-2 [facility] CtrUrine examination for white blood cells (WBC) 2024-04-10 17:08:00* Test Item Value Reference Range Interpretation Comme nts Urine WBC (test code = 513722761) >100 [facility] CtrAutomated epithelial cells count in urine sediment (number/area)2024-04-10 17:08:00* Test Item Value Reference Range Interpretation Comme nts Urine Epithelial Cells (test code = 53339-1) 6-10 [facility] CtrBacteria detection in urine sediment by light sraaruchhy0564-36-45 17:08:00* Test Item Value Reference Range Interpretation Comme nts Urine Bacteria (test code = 61595-1) Few [facility] CtrUrine casts detection by automated method 2024-04-10 17:08:00* Test Item Value Reference Range Interpretation Comme nts Urine Casts (test code = 07982-0) 0-2 [facility] CtrHCG ur QQ9913-07-95 17:03:00* Test Item Value Reference Range Interpretation Comme nts Urine HCG, Qualitative (test code = 2106-3) NEGATIVE [facility] CtrColor of Urine by Kywv2910-89-79 17:03:00* Test Item Value Reference Range Interpretation Comme nts Urine Color (test code = 96669-1) Yellow [facility] CtrAppearance of Zprov4121-13-37 17:03:00* Test Item Value Reference Range Interpretation Comme nts Urine Appearance (test code = 5767-9) Cloudy [facility] CtrUrine glucose fpasigucv7462-16-31 17:03:00* Test Item Value Reference Range Interpretation Comme nts Urine Glucose (UA) (test cod e = 2349-9) Negative [facility] CtrBilirubin sy7340-06-87 17:03:00* Test Item Value Reference Range Interpretation Comme nts Urine Bilirubin (test code = 986144400) Negative [facility] CtrKetones ok6780-77-88 17:03:00* Test Item Value Reference Range Interpretation Comme nts Urine Ketones (test code = 98150878) Negative [facility] CtrSpecific gravity of Urine by Automated test strip 2024-04-10 17:03:00* Test Item Value Reference Range Interpretation Comme nts Urine Specific [place] (test code = 29466-5) 1.006 [facility]wood[facility] blood vyfkvpndy3258-32-28 17:03:00* Test Item Value Reference Range Interpretation Comme nts Urine Blood (test code = 64608-1) Nonhemolyzed Trace [facility] CtrpH fu9070-33-17 17:03:00* Test Item Value Reference Range Interpretation Comme nts Urine pH (test code = 2756-5) 6.000 [facility] CtrProtein eq9052-92-53 17:03:00* Test Item Value Reference Range Interpretation Comme nts Urine Protein (test code = 67110809) Negative [facility] CtrUrobilinogen, urine, yb3906-89-46 17:03:00* Test Item Value Reference Range Interpretation Comme nts Urine Urobilinogen (test cod e = 545389414) 0.2 [facility]woodU[facility] nitrate qvvuwtpns6608-00-87 17:03:00* Test Item Value Reference Range Interpretation Comme nts Urine Nitrate (test code = 51294-4) Negative [facility] CtrAbsolute eosinophil buqom6462-46-16 17:00:00* Test Item Value Reference Range Interpretation Comme [facility] Eosinophils # (Auto) (test c ode = YMB7205) 0.25 [facility] CtrRBC uplnv7316-92-09 17:00:00* Test Item Value Reference Range Interpretation Comme [facility] Red Blood Count (test code = 40272464) 5.17 [facility] PkfWhcsxdqrek0578-74-59 17:00:00* Test Item Value Reference Range Interpretation Comme [facility] Hematocrit (test code = 59930036) 41.9 [facility] CtrMCV (mean corpuscular volume) determination 2024-04-10 17:00:00* Test Item Value Reference Range Interpretation Comme [facility] Mean Corpuscular Volume (shailesh t code = 38219-2) 81.0 [facility] CtrMean corpuscular hemoglobin (MCH) determination 2024-04-10 17:00:00* Test Item Value Reference Range Interpretation Comme [facility] Mean Corpuscular Hemoglobin (test code = 23621606) 26.1 [facility] BrownwoodMean corpuscular hemoglobin concentration (MCHC) shdyqlexxbyse9195-00-53 17:00:00* Test Item Value Reference Range Interpretation Comme [facility] Mean Corpuscular Hemoglobin Concent (test code = 76206326) 32.2 [facility] CtrRBC distribution width coefficient of variation 2024-04-10 17:00:00* Test Item Value Reference Range Interpretation Comme [facility] Red Cell Distribution Width (test code = 08095537) 15.2 [facility] CtrPlatelet vqdzm9551-45-35 17:00:00* Test Item Value Reference Range Interpretation Comme [facility] Platelet Count (test code = 34908405) 343 [facility] CtrMean platelet riuqwh8107-35-64 17:00:00* Test Item Value Reference Range Interpretation Comme [facility] Mean Platelet Volume (test c ode = 87882134) 9.3 [facility] CtrNeutrophils seg % ygs2546-90-86 17:00:00* Test Item Value Reference Range Interpretation Comme [facility] Neutrophils (%) (Auto) (test code = 30282-5) 71.4 [facility] CtrAbsolute immature granulocyte qncml6166-99-06 17:00:00* Test Item Value Reference Range Interpretation Comme nts Absolute Immature Granulocyt e (auto (test code = 18727-7) 0.05 [facility] CtrBlood band neutrophils count (number/volume) 2024-04-10 17:00:00* Test Item Value Reference Range Interpretation Comme nts Neutrophils # (Auto) (test c ode = 64033-0) 8.20 [facility] CtrAbsolute lymphocyte fjgjy7616-40-82 17:00:00* Test Item Value Reference Range Interpretation Comme nts Lymphocytes # (Auto) (test c ode = 08902-9) 2.42 [facility] CtrAbsolute basophil cquim0033-98-95 17:00:00* Test Item Value Reference Range Interpretation Comme nts Basophils # (Auto) (test cod e = 60458962) 0.03 [facility] CtrAbsolute NRBC xqzda6816-19-64 17:00:00* Test Item Value Reference Range Interpretation Comme nts Nucleated Red Blood Cells # (test code = 924215180) 0 [facility] CtrCT ABDOMEN PELVIS WO SSZKIBFP9782-91-53 00:27:38 Ordering Physician: JACQUE ROJO Clinical indication: [...] the spine.Multilevel lumbar central canal stenosis is present.[facility] Metabolic Uphfy5100-73-10 23:13:34* Test Item Value Reference Range Interpretation Comme nts NA (test code = 5980480650) 136 mmol/L 135-145 K (test code = 9933711283) 3.7 mmol/L 3.5-5.0 CL (test code = 4878657558) 106 mmol/L 98-108 CO2 TOTAL (test code = 3791483399) 20 mmol/L 23-31 L AGAP (test code = 1996679244) 10 2-16 BUN (test code = 6339613918) 6 mg/dL 7-23 L GLUCOSE (test code = 7963294291) 149 mg/dL 70-110 H CREATININE (test code = 2160-0) 0.63 mg/dL 0.50-1.04 TOTAL BILI (test code = 5745305028) 0.3 mg/dL 0.1-1.1 CALCIUM (test code = 7799590783) 9.2 mg/dL 8.6-10.6 T PROTEIN (test code = 0327171402) 7.4 g/dL 6.3-8.2 ALBUMIN (test code = 0302673221) 4.3 g/dL 3.5-5.0 ALK PHOS (test code = 4792753631) 74 U/L 34-122 ALTv (test code = 1742-6) 20 U/L 5-35 AST(SGOT) (test code = 3968347967) 22 U/L 13-40 eGFR (test code = 35892-6) 111.6 mL/min/1.73m2 CKD-EPI eGFR (2020). Assuming creatinine has been stable day-to-day for at least three months, the eGFR indicates Category G1 (>= 90 mL/min/1.73 m2) Lab Interpretation (test code = 77424-7) Abnormal [facility] CenterLipase, Povpl8826-45-39 23:12:53* Test Item Value Reference Range Interpretation Comme nts LIPASE (test code = 2129151647) 104 U/L 0-220 Lab Interpretation (test cod e = 35186-4) Normal [facility] CenterPOCT Qptz3488-66-34 23:01:00* Test Item Value Reference Range Interpretation Comme nts POCT PREG (test code = 1605) Negative On board controls acceptable with C Line (test code = 3574) Yes POCT PREG LOT # (test code = 3575) [id number] POCT PREG TEST DATE ( test code = 3576) Lab Interpretation (test cod e = 90713-8) Normal [facility] with Slytuwrrtifn1018-14-20 23:00:31* Test Item Value Reference Range Interpretation [...] 33.0 g/dL 31.6-35.1 RDW-SD (test code = 61585-9) 45.5 fL 39.0-49.9 RDW-CV (test code = 788-0) 15.3 % 12.0-15.5 PLT (test code = 777-3) 370 166-358 H MPV (test code = 05000-6) 9.3 fL 9.5-12.9 L NRBC/100 WBC (test code = 1289038901) 0.0 0.0-10.0 NRBC x10^3 (test code = 5601711710) See_Comment [Automated messa ge] The system which generated this result transmitted reference range: 10*3/?L. The reference range was not used to interpret this result as normal/abnormal. GRAN MAT (NEUT) % (test code = 770-8) 71.8 % IMM GRAN % (test code = 2137783736) 0.60 % LYMPH % (test code = 736-9) 20.9 % MONO % (test code = 5905-5) 4.9 % EOS % (test code = 713-8) 1.4 % BASO % (test code = 706-2) 0.4 % GRAN MAT x10^3(ANC) (test code = 0877130986) 9.75 10*3/uL 1.88-7.09 H IMM GRAN x10^3 (test code = 9802906412) 0.08 10*3/uL 0.00-0.06 H LYMPH x10^3 (test code = 731-0) 2.83 10*3/uL 1.32-3.29 MONO x10^3 (test code = 742-7) 0.66 10*3/uL 0.33-0.92 EOS x10^3 (test code = 711-2) 0.19 10*3/uL 0.03-0.39 BASO x10^3 (test code = 704-7) 0.05 10*3/uL 0.01-0.07 Lab Interpretation (test code = 20113-4) [facility]normal [facility] CenterCT [facility]BDOMEN PELVIS W PWZYVYRZ0289-03-94 05:07:16ORDERING PHYSICIAN:BOB MUSA CLINICAL INFORMATION: ? Abdominal [...] osseous lesions.[facility] Complete Metabolic Fzujh0158-62-13 04:38:59* Test Item Value Reference Range Interpretation Comme nts NA (test code = 8712544668) 138 mmol/L 135-145 K (test code = 9129962188) 3.7 mmol/L 3.5-5.0 CL (test code = 9331538266) 108 mmol/L 98-108 CO2 TOTAL (test code = 4755845718) 22 mmol/L 23-31 L AGAP (test code = 4881449354) 8 2-16 BUN (test code = 0812931896) 12 mg/dL 7-23 GLUCOSE (test code = 9503300320) 98 mg/dL 70-110 CREATININE (test code = 2160-0) 0.62 mg/dL 0.50-1.04 TOTAL BILI (test code = 0702970781) 0.4 mg/dL 0.1-1.1 CALCIUM (test code = 6576452319) 8.9 mg/dL 8.6-10.6 T PROTEIN (test code = 5291962475) 7.1 g/dL 6.3-8.2 ALBUMIN (test code = 0075478564) 3.8 g/dL 3.5-5.0 ALK PHOS (test code = 2887291667) 89 U/L 34-122 ALTv (test code = 1742-6) 17 U/L 5-35 AST(SGOT) (test code = 7924493043) 22 U/L 13-40 eGFR (test code = 32940-3) 112.8 mL/min/1.73m2 CKD-EPI eGFR (2020). Assuming creatinine has been stable day-to-day for at least three months, the eGFR indicates Category G1 (>= 90 mL/min/1.73 m2) Lab Interpretation (test code = 88735-2) [facility] [id number] 04:38:58* Test Item Value Reference Range Interpretation Comme nts LIPASE (test code = 6952167498) 136 U/L 0-220 Lab Interpretation (test cod e = 59038-9) [facility] with [id number] 04:19:14* Test Item Value Reference Range Interpretation [...] 32.2 g/dL 31.6-35.1 RDW-SD (test code = 57908-2) 50.2 fL 39.0-49.9 H RDW-CV (test code = 788-0) 17.3 % 12.0-15.5 H PLT (test code = 777-3) 377 166-358 H MPV (test code = 75935-4) 9.4 fL 9.5-12.9 L NRBC/100 WBC (test code = 0129852124) 0.0 0.0-10.0 NRBC x10^3 (test code = 2608967594) See_Comment [Automated messa ge] The system which generated this result transmitted reference range: 10*3/?L. The reference range was not used to interpret this result as normal/abnormal. GRAN MAT (NEUT) % (test code = 770-8) 65.3 % IMM GRAN % (test code = 2084634613) 0.40 % LYMPH % (test code = 736-9) 26.1 % MONO % (test code = 5905-5) 6.2 % EOS % (test code = 713-8) 1.6 % BASO % (test code = 706-2) 0.4 % GRAN MAT x10^3(ANC) (test code = 3589195517) 7.33 10*3/uL 1.88-7.09 H IMM GRAN x10^3 (test code = 5657199061) 0.04 10*3/uL 0.00-0.06 LYMPH x10^3 (test code = 731-0) 2.93 10*3/uL 1.32-3.29 MONO x10^3 (test code = 742-7) 0.70 10*3/uL 0.33-0.92 EOS x10^3 (test code = 711-2) 0.18 10*3/uL 0.03-0.39 BASO x10^3 (test code = 704-7) 0.05 10*3/uL 0.01-0.07 Lab Interpretation (test code = 69945-1) Abnormal [facility] [id number] 03:40:00* Test Item Value Reference Range Interpretation Comme nts POCT PREG (test code = 1605) Negative On board controls acceptable with C Line (test code = 3574) Yes POCT PREG LOT # (test code = 3575) [id number] POCT PREG TEST DATE ( test code = 3576) 2024-10-13 Lab Interpretation (test cod e = 56592-0) [facility] ILO1935-08-13 04:35:04Ordering physician: ROBERTO RICHARDS INDICATION: Abdominal pain COMPARISON: CT of the abdomen and pelv is dated 03/09/2023 FINDINGS: Supine AP view of the abdomen and pelvis. There is no bowelobstruction or generalized constipation.[facility] [id number] 02:30:00* Test Item Value Reference Range Interpretation Comme nts POCT PREG (test code = 1605) Negative On board controls acceptable with C Line (test code = 3574) Yes POCT PREG LOT # (test code = 3575) [id number] POCT PREG TEST DATE ( test code = 357) 2024-09-15 Lab Interpretation (test cod e = 07122-3) [facility] WITH [id number] 00:05:06* Test Item Value Reference Range Interpretation [...] 34.2 g/dL 31.6-35.1 RDW-SD (test code = 10997-8) 41.5 fL 39.0-49.9 RDW-CV (test code = 788-0) 14.5 % 12.0-15.5 PLT (test code = 777-3) 384 See_Comment H [Automated messa ge] The system which generated this result transmitted reference range: 166 - 358 10*3/?L. The reference range was not used to interpret this result as normal/abnormal. MPV (test code = 79780-5) 9.6 fL 9.5-12.9 GRAN MAT (NEUT) % (test code = 770-8) 66.0 % IMM GRAN % (test code = 1346134324) 0.50 % LYMPH % (test code = 736-9) 27.4 % MONO % (test code = 5905-5) 4.6 % EOS % (test code = 713-8) 1.1 % BASO % (test code = 706-2) 0.4 % GRAN MAT x10^3(ANC) (test code = 4820049333) 7.96 10*3/uL 1.88-7.09 H IMM GRAN x10^3 (test code = 9478402788) 0.06 10*3/uL 0.00-0.06 LYMPH x10^3 (test code = 731-0) 3.30 10*3/uL 1.32-3.29 H MONO x10^3 (test code = 742-7) 0.56 10*3/uL 0.33-0.92 EOS x10^3 (test code = 711-2) 0.13 10*3/uL 0.03-0.39 BASO x10^3 (test code = 704-7) 0.05 10*3/uL 0.01-0.07 Lab Interpretation (test code = 78803-3) [facility]OL[facility] PAN[facility] (47035)2023-05-09 23:27:13* Test Item Value Reference Range Interpretation Comme nts NA (test code = 6087792923) 137 mmol/L 135-145 K (test code = 4503889849) 3.3 mmol/L 3.5-5.0 L CL (test code = 6653221679) 103 mmol/L 98-108 CO2 TOTAL (test code = 4713600035) 20 mmol/L 23-31 L AGAP (test code = 2745279634) 14 2-16 BUN (test code = 0403404830) 5 mg/dL 7-23 L GLUCOSE (test code = 0801597126) 146 mg/dL 70-110 H CREATININE (test code = 3955913900) 0.60 mg/dL 0.50-1.04 TOTAL BILI (test code = 4990154069) 0.3 mg/dL 0.1-1.1 CALCIUM (test code = 9651265909) 9.3 mg/dL 8.6-10.6 T PROTEIN (test code = 3418723947) 7.9 g/dL 6.3-8.2 ALBUMIN (test code = 9098054848) 4.4 g/dL 3.5-5.0 ALK PHOS (test code = 6868015236) 105 U/L 34-122 ALTv (test code = 1742-6) 38 U/L 5-35 H AST(SGOT) (test code = 7070348922) 21 U/L 13-40 eGFR (test code = 33753-5) 113.7 mL/min/1.73m2 CKD-EPI eGFR (2020). Assuming creatinine has been stable day-to-day for at least three months, the eGFR indicates Category G1 (>= 90 mL/min/1.73 m2) Lab Interpretation (test code = 12117-2) [facility] 23:27:13* Test Item Value Reference Range Interpretation Comme nts LIPASE (test code = 0559999463) 142 U/L 0-220 Lab Interpretation (test cod e = 10879-6) [facility]EL (02532)2023-04-30 23:41:47* Test Item Value Reference Range Interpretation Comme nts NA (test code = 9369269323) 139 mmol/L 135-145 K (test code = 1436501117) 3.3 mmol/L 3.5-5.0 L CL (test code = 7790710192) 105 mmol/L 98-108 CO2 TOTAL (test code = 1970532993) 20 mmol/L 23-31 L AGAP (test code = 7772026563) 14 2-16 BUN (test code = 2485299020) 6 mg/dL 7-23 L GLUCOSE (test code = 5807955172) 119 mg/dL 70-110 H CREATININE (test code = 5628780282) 0.59 mg/dL 0.50-1.04 TOTAL BILI (test code = 9742317662) 0.3 mg/dL 0.1-1.1 CALCIUM (test code = 8887444869) 9.7 mg/dL 8.6-10.6 T PROTEIN (test code = 6344811137) 7.6 g/dL 6.3-8.2 ALBUMIN (test code = 6551662476) 4.2 g/dL 3.5-5.0 ALK PHOS (test code = 5630941296) 78 U/L 34-122 ALTv (test code = 1742-6) 24 U/L 5-35 AST(SGOT) (test code = 1027266022) 24 U/L 13-40 eGFR (test code = 8579171580) 110.7 mL/min/1.73m2 DARWIN (test code = DARWIN) [...] imaging tests). Lab Interpretation (test code = 47324-0) Abnormal [facility] WITH [id number] 23:29:07* Test Item Value Reference Range Interpretation Comme nts WBC (test code = 6690-2) 11.56 See_Comment H [Automated [employer]] The system which generated this result transmitted reference range: 4.30 - 11.10 10*3/?L. The reference range was not used to interpret this result as normal/abnormal. RBC (test code = 789-8) 5.02 See_Comment [Automated [employer]] The system which generated this result transmitted [...] 33.7 g/dL 31.6-35.1 RDW-SD (test code = 80795-6) 41.5 fL 39.0-49.9 RDW-CV (test code = 788-0) 14.3 % 12.0-15.5 PLT (test code = 777-3) 335 See_Comment [Automated messa ge] The system which generated this result transmitted reference range: 166 - 358 10*3/?L. The reference range was not used to interpret this result as normal/abnormal. MPV (test code = 76642-2) 9.7 fL 9.5-12.9 NRBC/100 WBC (test code = 7942851847) 0.0 See_Comment [Automated [employer] ssage] The system which generated this result transmitted reference range: 0.0 - 10.0 /100 WBCs. The reference range was not used to interpret this result as normal/abnormal. NRBC x10^3 (test code = 3167866618) See_Comment [Automated messa ge] The system which generated this result transmitted reference range: 10*3/?L. The reference range was not used to interpret this result as normal/abnormal. GRAN MAT (NEUT) % (test code = 770-8) 65.7 % IMM GRAN % (test code = 1252708703) 0.50 % LYMPH % (test code = 736-9) 25.4 % MONO % (test code = 5905-5) 6.7 % EOS % (test code = 713-8) 1.2 % BASO % (test code = 706-2) 0.5 % GRAN MAT x10^3(ANC) (test code = 2409686536) 7.59 10*3/uL 1.88-7.09 H IMM GRAN x10^3 (test code = 1041941954) 0.06 10*3/uL 0.00-0.06 LYMPH x10^3 (test code = 731-0) 2.94 10*3/uL 1.32-3.29 MONO x10^3 (test code = 742-7) 0.77 10*3/uL 0.33-0.92 EOS x10^3 (test code = 711-2) 0.14 10*3/uL 0.03-0.39 BASO x10^3 (test code = 704-7) 0.06 10*3/uL 0.01-0.07 Lab Interpretation (test code = 30205-9) Abnormal [facility] [id number] 22:59:00* Test Item Value Reference Range Interpretation Comme nts POCT PREG (test code = 1605) Negative On board controls acceptable with C Line (test code = 3574) Yes POCT PREG LOT # (test code = 3575) [id number] POCT PREG TEST DATE ( test code = 3576) 07/10/2024 Lab Interpretation (test cod e = 06172-1) [facility]TR[facility] [id number] 02:36:34* Test Item Value Reference Range Interpretation Comme nts TROPONIN I (test code = 9955951363) 0.000 ng/mL <=0.034 DARWIN (test code = [...] of biotin. Lab Interpretation (test code = 08317-8) [facility] Center[facility]MINAL [id number]-[id number] 02:34:17* Test Item Value Reference Range Interpretation Comme [facility] NT-proBNP (test code = 08636-4) 40 pg/mL <=125 Lab Interpretation (test cod e = 62772-8) [facility] CenterACTIVATED PARTIAL THRMPLAS [id number] 02:33:37* Test Item Value Reference Range Interpretation Comme [facility] APTT Patient (test code = 3173-2) 25 See_Comment [Automated message] The system which generated this result transmitted reference range: 23 - 38 Seconds. The reference range was not used to interpret this result as normal/abnormal. DARWIN (test code = DARWIN) The [facility] patient population mean normal value for aPTT is 30 seconds. Lab Interpretation (test code = 20335-3) Normal [facility] CenterPROTHROMBIN TIME / [id number] 02:31:36* Test Item Value Reference Range Interpretation Comme [facility] PROTIME PATIENT (test code = 5964-2) 12.6 See_Comment [Automated [employer] The system which generated this result transmitted reference range: 12.0 - 14.7 Seconds. The reference range was not used to interpret this result as normal/abnormal. INR (test code = 6301-6) 1.0 Normal INR <1.1; Warfarin Therapeutic range 2.0 to 3.0 or 2.5 to 3.5, depending upon the indications. Lab Interpretation (test code = 79594-0) Normal [facility]. METABOLIC PANEL (15155)2023-04-17 02:24:56* Test Item Value Reference Range Interpretation Comme [facility] NA (test code = 8002061852) 142 mmol/L 135-145 K (test code = 5774399902) 3.1 mmol/L 3.5-5.0 L CL (test code = 4602597113) 108 mmol/L 98-108 CO2 TOTAL (test code = 1487877731) 20 mmol/L 23-31 L AGAP (test code = 2291972317) 14 2-16 BUN (test code = 7639446227) 4 mg/dL 7-23 L GLUCOSE (test code = 2523076279) 107 mg/dL 70-110 CREATININE (test code = 7220985711) 0.61 mg/dL 0.50-1.04 TOTAL BILI (test code = 2538356637) 0.2 mg/dL 0.1-1.1 CALCIUM (test code = 0527227297) 9.1 mg/dL 8.6-10.6 T PROTEIN (test code = 2539828034) 7.0 g/dL 6.3-8.2 ALBUMIN (test code = 3466559675) 3.9 g/dL 3.5-5.0 ALK PHOS (test code = 6391575139) 69 U/L 34-122 ALTv (test code = 1742-6) 21 U/L 5-35 AST(SGOT) (test code = 8477332003) 21 U/L 13-40 eGFR (test code = 0614896540) 106.5 mL/min/1.73m2 DARWIN (test code = DARWIN) [...] imaging tests). Lab Interpretation (test code = 10502-5) [facility]20[facility] 02:24:56* Test Item Value Reference Range Interpretation Comme nts LIPASE (test code = 9813860784) 104 U/L 0-220 Lab Interpretation (test cod e = 34176-3) [facility] WITH [id number] 02:13:31* Test Item Value Reference Range Interpretation Comme nts WBC (test code = 6690-2) 10.74 See_Comment [Automated [employer]] The system which generated this result transmitted reference range: 4.30 - 11.10 10*3/?L. The reference range was not used to interpret this result as normal/abnormal. RBC (test code = 789-8) 4.75 See_Comment [Automated [employer] The system which generated this result transmitted [...] 34.5 g/dL 31.6-35.1 RDW-SD (test code = 59914-7) 39.1 fL 39.0-49.9 RDW-CV (test code = 788-0) 13.5 % 12.0-15.5 PLT (test code = 777-3) 324 See_Comment [Automated messa ge] The system which generated this result transmitted reference range: 166 - 358 10*3/?L. The reference range was not used to interpret this result as normal/abnormal. MPV (test code = 40787-3) 9.3 fL 9.5-12.9 L NRBC/100 WBC (test code = 6942684267) 0.0 See_Comment [Automated [employer] ssage] The system which generated this result transmitted reference range: 0.0 - 10.0 /100 WBCs. The reference range was not used to interpret this result as normal/abnormal. NRBC x10^3 (test code = 5836814408) See_Comment [Automated [employer]] The system which generated this result transmitted reference range: 10*3/?L. The reference range was not used to interpret this result as normal/abnormal. GRAN MAT (NEUT) % (test code = 770-8) 65.2 % IMM GRAN % (test code = 5967598627) 0.40 % LYMPH % (test code = 736-9) 26.5 % MONO % (test code = 5905-5) 5.8 % EOS % (test code = 713-8) 1.7 % BASO % (test code = 706-2) 0.4 % GRAN MAT x10^3(ANC) (test code = 5615624612) 7.01 10*3/uL 1.88-7.09 IMM GRAN x10^3 (test code = 3445309046) 0.04 10*3/uL 0.00-0.06 LYMPH x10^3 (test code = 731-0) 2.85 10*3/uL 1.32-3.29 MONO x10^3 (test code = 742-7) 0.62 10*3/uL 0.33-0.92 EOS x10^3 (test code = 711-2) 0.18 10*3/uL 0.03-0.39 BASO x10^3 (test code = 704-7) 0.04 10*3/uL 0.01-0.07 Lab Interpretation (test code = 81892-9) [facility] CenterPO[facility] [id number] 02:11:00* Test Item Value Reference Range Interpretation Comme nts POCT PREG (test code = 1605) Negative On board controls acceptable with C Line (test code = 3574) Yes POCT PREG LOT # (test code = 3575) [id number] POCT PREG TEST DATE ( test code = 3576) 2024-09-04 Lab Interpretation (test cod e = 81665-2) [facility] CenterTROPONIN [id number] 23:59:14* Test Item Value Reference Range Interpretation Comme nts TROPONIN I (test code = 7311917137) 0.000 ng/mL <=0.034 DARWIN (test code = [...] of biotin. Lab Interpretation (test code = 10593-5) [facility] CenterCOM[facility] MET[facility]OLIC PANEL (38103)2023-04-08 23:47:52* Test Item Value Reference Range Interpretation Comme nts NA (test code = 3060574221) 138 mmol/L 135-145 K (test code = 2572846017) 3.4 mmol/L 3.5-5.0 L CL (test code = 4065285000) 103 mmol/L 98-108 CO2 TOTAL (test code = 8144774936) 22 mmol/L 23-31 L AGAP (test code = 4905122856) 13 2-16 BUN (test code = 5000834771) 6 mg/dL 7-23 L GLUCOSE (test code = 4488891781) 106 mg/dL 70-110 CREATININE (test code = 1472421534) 0.91 mg/dL 0.50-1.04 TOTAL BILI (test code = 1348747658) 0.2 mg/dL 0.1-1.1 CALCIUM (test code = 9834455720) 8.7 mg/dL 8.6-10.6 T PROTEIN (test code = 2139886745) 7.4 g/dL 6.3-8.2 ALBUMIN (test code = 9745217101) 4.1 g/dL 3.5-5.0 ALK PHOS (test code = 7505949717) 71 U/L 34-122 ALTv (test code = 1742-6) 28 U/L 5-35 AST(SGOT) (test code = 6560652647) 28 U/L 13-40 eGFR (test code = 3206786730) 67.2 mL/min/1.73m2 DARWIN (test code = DARWIN) [...] imaging tests). Lab Interpretation (test code = 37880-9) [facility] CenterMAGNESIUM2023-10-02 23:47:52* Test Item Value Reference Range Interpretation Comme nts MAGNESIUM (test code = 6471376317) 2.0 mg/dL 1.7-2.4 Lab Interpretation (test cod e = 25931-2) [facility] 23:47:52* Test Item Value Reference Range Interpretation Comme nts LIPASE (test code = 4742904969) 74 U/L 0-220 Lab Interpretation (test cod e = 48392-6) Normal [facility] WITH [id number] 23:36:30* Test Item Value Reference Range Interpretation Comme nts WBC (test code = 6690-2) 9.95 See_Comment [[employer]ated [employer] The system which generated this result transmitted reference range: 4.30 - 11.10 10*3/?L. The reference range was not used to interpret this result as normal/abnormal. RBC (test code = 789-8) 5.29 See_Comment H [Automated [employer] The system which generated this result transmitted [...] 34.5 g/dL 31.6-35.1 RDW-SD (test code = 15673-6) 39.3 fL 39.0-49.9 RDW-CV (test code = 788-0) 13.6 % 12.0-15.5 PLT (test code = 777-3) 305 See_Comment [Automated messa ge] The system which generated this result transmitted reference range: 166 - 358 10*3/?L. The reference range was not used to interpret this result as normal/abnormal. MPV (test code = 81911-8) 9.6 fL 9.5-12.9 NRBC/100 WBC (test code = 9409346790) 0.0 See_Comment [Automated [employer]] The system which generated this result transmitted reference range: 0.0 - 10.0 /100 WBCs. The reference range was not used to interpret this result as normal/abnormal. NRBC x10^3 (test code = 0774858396) See_Comment [Automated messa ge] The system which generated this result transmitted reference range: 10*3/?L. The reference range was not used to interpret this result as normal/abnormal. GRAN MAT (NEUT) % (test code = 770-8) 66.5 % IMM GRAN % (test code = 4773009143) 0.30 % LYMPH % (test code = 736-9) 25.3 % MONO % (test code = 5905-5) 5.2 % EOS % (test code = 713-8) 2.3 % BASO % (test code = 706-2) 0.4 % GRAN MAT x10^3(ANC) (test code = 6425287379) 6.61 10*3/uL 1.88-7.09 IMM GRAN x10^3 (test code = 3675407767) 0.03 10*3/uL 0.00-0.06 LYMPH x10^3 (test code = 731-0) 2.52 10*3/uL 1.32-3.29 MONO x10^3 (test code = 742-7) 0.52 10*3/uL 0.33-0.92 EOS x10^3 (test code = 711-2) 0.23 10*3/uL 0.03-0.39 BASO x10^3 (test code = 704-7) 0.04 10*3/uL 0.01-0.07 Lab Interpretation (test code = 69771-6) Abnormal [facility] [id number] 02:51:00* Test Item Value Reference Range Interpretation Comme nts POCT PREG (test code = 1605) Negative On board controls acceptable with C Line (test code = 3574) Yes POCT PREG LOT # (test code = 3575) [id number] POCT PREG TEST DATE ( test code = 3576) 07/10/2024 Lab Interpretation (test cod e = 07769-9) Normal [facility] [id number] 03:26:00* Test Item Value Reference Range Interpretation Comme nts POCT PREG (test code = 1605) Negative On board controls acceptable with C Line (test code = 3574) Yes POCT PREG LOT # (test code = 3575) [id number] POCT PREG TEST DATE ( test code = 3576) Lab Interpretation (test cod e = 41978-0) [facility] 22:35:38* Test Item Value Reference Range Interpretation Comme nts LIPASE (test code = 0851630283) 2049 U/L 0-220 H Lab Interpretation (test cod e = 96900-3) Abnormal [facility] WITH [id number] 22:30:10* Test Item Value Reference Range Interpretation [...] 34.6 g/dL 31.6-35.1 RDW-SD (test code = 27151-4) 42.7 fL 39.0-49.9 RDW-CV (test code = 788-0) 14.6 % 12.0-15.5 PLT (test code = 777-3) 331 See_Comment [Automated messa ge] The system which generated this result transmitted reference range: 166 - 358 10*3/?L. The reference range was not used to interpret this result as normal/abnormal. MPV (test code = 51436-5) 9.7 fL 9.5-12.9 NRBC/100 WBC (test code = 9877994468) 0.0 See_Comment [Automated [employer]] The system which generated this result transmitted reference range: 0.0 - 10.0 /100 WBCs. The reference range was not used to interpret this result as normal/abnormal. NRBC x10^3 (test code = 8717775789) See_Comment [Automated [employer]] The system which generated this result transmitted reference range: 10*3/?L. The reference range was not used to interpret this result as normal/abnormal. GRAN MAT (NEUT) % (test code = 770-8) 65.7 % IMM GRAN % (test code = 3803640011) 0.50 % LYMPH % (test code = 736-9) 26.5 % MONO % (test code = 5905-5) 5.4 % EOS % (test code = 713-8) 1.5 % BASO % (test code = 706-2) 0.4 % GRAN MAT x10^3(ANC) (test code = 2193521592) 8.05 10*3/uL 1.88-7.09 H IMM GRAN x10^3 (test code = 4967826991) 0.06 10*3/uL 0.00-0.06 LYMPH x10^3 (test code = 731-0) 3.24 10*3/uL 1.32-3.29 MONO x10^3 (test code = 742-7) 0.66 10*3/uL 0.33-0.92 EOS x10^3 (test code = 711-2) 0.18 10*3/uL 0.03-0.39 BASO x10^3 (test code = 704-7) 0.05 10*3/uL 0.01-0.07 Lab Interpretation (test code = 09085-5) Abnormal [facility]. METABOLIC PANEL (55579)2023-02-15 22:27:47* Test Item Value Reference Range Interpretation Comme nts NA (test code = 4824615644) 138 mmol/L 135-145 K (test code = 5146339278) 3.7 mmol/L 3.5-5.0 CL (test code = 7897864062) 105 mmol/L 98-108 CO2 TOTAL (test code = 1376056938) 23 mmol/L 23-31 AGAP (test code = 7331474549) 10 2-16 BUN (test code = 2818770144) 6 mg/dL 7-23 L GLUCOSE (test code = 3949165287) 92 mg/dL 70-110 CREATININE (test code = 7329020445) 0.77 mg/dL 0.50-1.04 TOTAL BILI (test code = 4508572138) 0.7 mg/dL 0.1-1.1 CALCIUM (test code = 1769078507) 9.0 mg/dL 8.6-10.6 T PROTEIN (test code = 6049852786) 7.5 g/dL 6.3-8.2 ALBUMIN (test code = 8383517466) 4.0 g/dL 3.5-5.0 ALK PHOS (test code = 2156431244) 101 U/L 34-122 ALTv (test code = 1742-6) 25 U/L 5-35 AST(SGOT) (test code = 0342367063) 36 U/L 13-40 eGFR (test code = 9642766038) 81.8 mL/min/1.73m2 DARWIN (test code = DARWIN) [...] imaging tests). Lab Interpretation (test code = 34971-4) [facility]RAKBI2099-36-22 20:56:28* Test Item Value Reference Range Interpretation Comments D-DIMER (test code = 7095671475) 0.44 See_Comment H [Automated message] The system [...] a diagnosis. Lab Interpretation (test code = 05032-0) Abnormal [facility] [id number] 01:15:16* Test Item Value Reference Range Interpretation Comments TROPONIN I (test code = 1718791437) 0.001 ng/mL See_Comment [Automated message] The system [...] of biotin. Lab Interpretation (test code = 48191-6) Normal [facility] [id number] 22:52:31* Test Item Value Reference Range Interpretation Comments TROPONIN I (test code = 2802974852) 0.001 ng/mL See_Comment [Automated message] The system [...] of biotin. Lab Interpretation (test code = 97269-7) [facility] [id number] 22:49:33* Test Item Value Reference Range Interpretation Comme nts NT-proBNP (test code = 5441373499) 145 pg/mL See_Comment H [Automated message] The system which generated this result transmitted reference range: <=125. The reference range was not used to interpret this result as normal/abnormal. DARWIN (test code = DARWIN) Biotin has been reported to cause a negative bias, interpret results relative to patient's use of biotin. Lab Interpretation (test code = 05881-8) [facility] (NA, K, CL, CO2, GLUCOSE, BUN, CREATININE, CA)2022-01-09 22:40:32* Test Item Value Reference Range Interpretation Comme nts NA (test code = 5240569072) 142 mmol/L 135-145 K (test code = 3871426048) 3.3 mmol/L 3.5-5.0 L CL (test code = 2276279709) 109 mmol/L 98-108 H CO2 TOTAL (test code = 4937150899) 22 mmol/L 23-31 L AGAP (test code = 4004557261) 2-16 BUN (test code = 5346754162) 9 mg/dL 7-23 GLUCOSE (test code = 1473343598) 116 mg/dL 70-110 H CREATININE (test code = 4114217364) 0.69 mg/dL 0.50-1.04 CALCIUM (test code = 5461002287) 9.2 mg/dL 8.6-10.6 eGFR (test code = 2126644408) mL/min/1.73m2 DARWIN (test code = DARWIN) Association [...] imaging tests). Lab Interpretation (test code = 26545-8) Abnormal [facility] WITH [id number] 22:29:09* Test Item Value Reference Range Interpretation Comme nts WBC (test code = 6690-2) See_Comment [[employer]] The system which generated this result transmitted reference range: 4.30 - 11.10 10*3/?L. The reference range was not used to interpret this result as normal/abnormal. RBC (test code = 789-8) See_Comment [[employer]] The system which generated this result transmitted [...] 34.4 g/dL 31.6-35.1 RDW-SD (test code = 59334-1) 40.7 fL 39.0-49.9 RDW-CV (test code = 788-0) 14.1 % 12.0-15.5 PLT (test code = 777-3) See_Comment [[employer]] The system which generated this result transmitted reference range: 166 - 358 10*3/?L. The reference range was not used to interpret this result as normal/abnormal. MPV (test code = 20670-3) 9.6 fL 9.5-12.9 NRBC/100 WBC (test code = 7178116257) See_Comment [Automated [employer] ssage] The system which generated this result transmitted reference range: 0.0 - 10.0 /100 WBCs. The reference range was not used to interpret this result as normal/abnormal. NRBC x10^3 (test code = 4341621395) <0.01 See_Comment [Automated messa ge] The system which generated this result transmitted reference range: 10*3/?L. The reference range was not used to interpret this result as normal/abnormal. GRAN MAT (NEUT) % (test code = 770-8) 54.7 % IMM GRAN % (test code = 6204412244) 0.40 % LYMPH % (test code = 736-9) 33.8 % MONO % (test code = 5905-5) 7.1 % EOS % (test code = 713-8) 3.3 % BASO % (test code = 706-2) 0.7 % GRAN MAT x10^3(ANC) (test code = 8506802034) 4.87 10*3/uL 1.88-7.09 IMM GRAN x10^3 (test code = 7530306528) 0.04 10*3/uL 0.00-0.06 LYMPH x10^3 (test code = 731-0) 3.01 10*3/uL 1.32-3.29 MONO x10^3 (test code = 742-7) 0.63 10*3/uL 0.33-0.92 EOS x10^3 (test code = 711-2) 0.29 10*3/uL 0.03-0.39 BASO x10^3 (test code = 704-7) 0.06 10*3/uL 0.01-0.07 Lab Interpretation (test code = 49280-9) [facility] [id number] 06:45:45* Test Item Value Reference Range Interpretation Comments TROPONIN I (test code = 4840414224) 0.000 ng/mL See_Comment [Automated message] The system [...] of biotin. Lab Interpretation (test code = 24857-7) [facility] Center[facility] STIMULATING [id number] 05:00:55 * Test Item Value Reference Range Interpretation Comme nts TSH (test code = 4393667150) See_Comment [Automated [employer] The system which generated this result transmitted reference range: 0.45 - 4.70 mIU/L. The reference range was not used to interpret this result as normal/abnormal. Lab Interpretation (test code = 76885-6) Normal [facility] [id number] 04:47:50* Test Item Value Reference Range Interpretation Comme nts FREE T4 (test code = 7469704573) See_Comment [Automated [employer] The system which generated this result transmitted reference range: 0.78 - 2.20 ng/dL:. The reference range was not used to interpret this result as normal/abnormal. Lab Interpretation (test code = 75140-7) Normal [facility] [id number] 04:47:10* Test Item Value Reference Range Interpretation Comme nts FREE T3 (test code = 6700532966) 4.37 pg/mL 2.77-5.27 Lab Interpretation (test cod e = 96908-0) [facility] [id number] 04:42:07* Test Item Value Reference Range Interpretation Comments TROPONIN I (test code = 7184079469) 0.001 ng/mL See_Comment [Automated message] The system [...] of biotin. Lab Interpretation (test code = 05854-4) Normal [facility]. METABOLIC PANEL (58910)2021-12-14 04:30:28* Test Item Value Reference Range Interpretation Comme nts NA (test code = 7031301637) 141 mmol/L 135-145 K (test code = 6753010950) 3.6 mmol/L 3.5-5.0 CL (test code = 7564515497) 111 mmol/L 98-108 H CO2 TOTAL (test code = 0898586424) 19 mmol/L 23-31 L AGAP (test code = 5638069873) 2-16 BUN (test code = 3603606113) 15 mg/dL 7-23 GLUCOSE (test code = 9307052956) 113 mg/dL 70-110 H CREATININE (test code = 0263962745) 1.05 mg/dL 0.50-1.04 H TOTAL BILI (test code = 8079608680) 0.2 mg/dL 0.1-1.1 CALCIUM (test code = 8071221600) 9.8 mg/dL 8.6-10.6 T PROTEIN (test code = 9323373669) 6.8 g/dL 6.3-8.2 ALBUMIN (test code = 3832811624) 4.2 g/dL 3.5-5.0 ALK PHOS (test code = 1916845796) 73 U/L 34-122 ALTv (test code = 1742-6) 16 U/L 5-35 AST(SGOT) (test code = 9859302320) 19 U/L 13-40 eGFR (test code = 0750364154) mL/min/1.73m2 DARWIN (test code = DARWIN) Association [...] imaging tests). Lab Interpretation (test code = 46210-5) [facility] 04:29:48* Test Item Value Reference Range Interpretation Comme [facility] LIPASE (test code = 6665305084) 225 U/L 0-220 H Lab Interpretation (test cod e = 96868-7) [facility] CenterPO[facility] [id number] 04:20:00* Test Item Value Reference Range Interpretation Comme nts POCT PREG (test code = 1605) negative On board controls acceptable with C Line (test code = 3574) present POCT PREG LOT # (test code = 3575) [id number] POCT PREG TEST DATE ( test code = 3576) 2023-05-07 Lab Interpretation (test cod e = 09516-9) Normal [facility] WITH [id number] 04:01:25* Test Item Value Reference Range Interpretation [...] 34.3 g/dL 31.6-35.1 RDW-SD (test code = 94907-9) 39.5 fL 39.0-49.9 RDW-CV (test code = 788-0) 13.6 % 12.0-15.5 PLT (test code = 777-3) See_Comment [Automated messa ge] The system which generated this result transmitted reference range: 166 - 358 10*3/?L. The reference range was not used to interpret this result as normal/abnormal. MPV (test code = 70211-4) 9.9 fL 9.5-12.9 NRBC/100 WBC (test code = 2111630522) See_Comment [Automated me ssage] The system which generated this result transmitted reference range: 0.0 - 10.0 /100 WBCs. The reference range was not used to interpret this result as normal/abnormal. NRBC x10^3 (test code = 9047529550) <0.01 See_Comment [Automated messa ge] The system which generated this result transmitted reference range: 10*3/?L. The reference range was not used to interpret this result as normal/abnormal. GRAN MAT (NEUT) % (test code = 770-8) 51.5 % IMM GRAN % (test code = 9551644635) 0.50 % LYMPH % (test code = 736-9) 35.8 % MONO % (test code = 5905-5) 9.4 % EOS % (test code = 713-8) 2.2 % BASO % (test code = 706-2) 0.6 % GRAN MAT x10^3(ANC) (test code = 6562731633) 5.37 10*3/uL 1.88-7.09 IMM GRAN x10^3 (test code = 0574576358) 0.05 10*3/uL 0.00-0.06 LYMPH x10^3 (test code = 731-0) 3.73 10*3/uL 1.32-3.29 H MONO x10^3 (test code = 742-7) 0.98 10*3/uL 0.33-0.92 H EOS x10^3 (test code = 711-2) 0.23 10*3/uL 0.03-0.39 BASO x10^3 (test code = 704-7) 0.06 10*3/uL 0.01-0.07 Lab Interpretation (test code = 70335-3) [facility]normal [facility]DA[facility]ALS[facility] [id number] 04:04:13* Test Item Value Reference Range Interpretation Comments TROPONIN I (test code = 2648342558) 0.001 ng/mL See_Comment [Automated message] The system [...] of biotin. Lab Interpretation (test code = 89638-4) [facility] CenterPO[facility] [id number] 02:56:00* Test Item Value Reference Range Interpretation Comme nts POCT PREG (test code = 1605) negative On board controls acceptable with C Line (test code = 3574) present POCT PREG LOT # (test code = 3575) [id number] POCT PREG TEST DATE ( test code = 3576) 2023-04-06 Lab Interpretation (test cod e = 65065-2) Normal [facility] CenterTROP[facility]IN [id number] 02:15:30* Test Item Value Reference Range Interpretation Comments TROPONIN I (test code = 4444721006) 0.000 ng/mL See_Comment [Automated message] The system [...] of biotin. Lab Interpretation (test code = 43563-4) Normal [facility] Center[facility]-TERMINAL PRI-KXP4421-02-08 02:12:14* Test Item Value Reference Range Interpretation Comme nts NT-proBNP (test code = 2504131662) 109 pg/mL See_Comment [Automated message] The system which generated this result transmitted reference range: <=125. The reference range was not used to interpret this result as normal/abnormal. DARWIN (test code = DARWIN) Biotin has been reported to cause a negative bias, interpret results relative to patient's use of biotin. Lab Interpretation (test code = 77214-8) Normal [facility]. METABOLIC PANEL (25116)2021-11-12 02:04:12* Test Item Value Reference Range Interpretation Comme nts NA (test code = 5960987250) 140 mmol/L 135-145 K (test code = 1030768946) 4.0 mmol/L 3.5-5.0 CL (test code = 8482769456) 111 mmol/L 98-108 H CO2 TOTAL (test code = 1611275507) 17 mmol/L 23-31 L AGAP (test code = 4551335375) 2-16 BUN (test code = 3389124391) 9 mg/dL 7-23 GLUCOSE (test code = 4478158983) 105 mg/dL 70-110 CREATININE (test code = 3038829609) 0.72 mg/dL 0.50-1.04 TOTAL BILI (test code = 0608398338) 0.4 mg/dL 0.1-1.1 CALCIUM (test code = 5306148848) 9.3 mg/dL 8.6-10.6 T PROTEIN (test code = 5048875558) 6.6 g/dL 6.3-8.2 ALBUMIN (test code = 2071832098) 4.0 g/dL 3.5-5.0 ALK PHOS (test code = 9875000748) 70 U/L 34-122 ALTv (test code = 1742-6) 19 U/L 5-35 AST(SGOT) (test code = 1470597157) 21 U/L 13-40 eGFR (test code = 8350228076) mL/min/1.73m2 DARWIN (test code = DARWIN) Association [...] imaging tests). Lab Interpretation (test code = 16644-9) [facility] 02:03:32* Test Item Value Reference Range Interpretation Comme nts LIPASE (test code = 0203611584) 173 U/L 0-220 Lab Interpretation (test cod e = 53298-6) Normal [facility] WITH [id number] 01:43:53* Test Item Value Reference Range Interpretation Comme nts WBC (test code = 6690-2) See_Comment [Automated [employer]] The system which generated this result transmitted reference range: 4.30 - 11.10 10*3/?L. The reference range was not used to interpret this result as normal/abnormal. RBC (test code = 789-8) See_Comment [Automated [employer]] The system which generated this result transmitted [...] 33.7 g/dL 31.6-35.1 RDW-SD (test code = 81113-0) 41.3 fL 39.0-49.9 RDW-CV (test code = 788-0) 14.3 % 12.0-15.5 PLT (test code = 777-3) See_Comment [Automated messa ge] The system which generated this result transmitted reference range: 166 - 358 10*3/?L. The reference range was not used to interpret this result as normal/abnormal. MPV (test code = 74356-3) 9.7 fL 9.5-12.9 NRBC/100 WBC (test code = 0020745122) See_Comment [Automated [employer] ssage] The system which generated this result transmitted reference range: 0.0 - 10.0 /100 WBCs. The reference range was not used to interpret this result as normal/abnormal. NRBC x10^3 (test code = 1414827222) <0.01 See_Comment [Automated [employer]] The system which generated this result transmitted reference range: 10*3/?L. The reference range was not used to interpret this result as normal/abnormal. GRAN MAT (NEUT) % (test code = 770-8) 62.6 % IMM GRAN % (test code = 7959962103) 0.50 % LYMPH % (test code = 736-9) 27.0 % MONO % (test code = 5905-5) 6.5 % EOS % (test code = 713-8) 2.9 % BASO % (test code = 706-2) 0.5 % GRAN MAT x10^3(ANC) (test code = 4129509594) 6.30 10*3/uL 1.88-7.09 IMM GRAN x10^3 (test code = 4103934620) 0.05 10*3/uL 0.00-0.06 LYMPH x10^3 (test code = 731-0) 2.71 10*3/uL 1.32-3.29 MONO x10^3 (test code = 742-7) 0.65 10*3/uL 0.33-0.92 EOS x10^3 (test code = 711-2) 0.29 10*3/uL 0.03-0.39 BASO x10^3 (test code = 704-7) 0.05 10*3/uL 0.01-0.07 Lab Interpretation (test code = 67679-5) [facility]PO[facility] [id number] 02:21:00* Test Item Value Reference Range Interpretation Comme nts POCT PREG (test code = 1605) Negative On board controls acceptable with C Line (test code = 3574) Present Lab Interpretation (test cod e = 94222-3) Normal [facility] CenterComplete Metabolic Zaoab5928-50-74 02:05:50* Test Item Value Reference Range Interpretation Comme nts NA (test code = 6239549324) 137 mmol/L 135-145 K (test code = 1675674447) 3.9 mmol/L 3.5-5.0 CL (test code = 6155402874) 109 mmol/L 98-108 H CO2 TOTAL (test code = 8509389655) 19 mmol/L 23-31 L AGAP (test code = 1606819957) 2-16 BUN (test code = 2136125747) 10 mg/dL 7-23 GLUCOSE (test code = 7216221957) 101 mg/dL 70-110 CREATININE (test code = 6249458545) 0.80 mg/dL 0.50-1.04 TOTAL BILI (test code = 0564330451) 0.3 mg/dL 0.1-1.1 CALCIUM (test code = 9150038215) 8.8 mg/dL 8.6-10.6 T PROTEIN (test code = 1304507494) 6.6 g/dL 6.3-8.2 ALBUMIN (test code = 5988313728) 4.0 g/dL 3.5-5.0 ALK PHOS (test code = 2909704957) 71 U/L 34-122 ALTv (test code = 1742-6) 18 U/L 5-35 AST(SGOT) (test code = 1263108559) 20 U/L 13-40 eGFR (test code = 8899209281) mL/min/1.73m2 DARWIN (test code = DARWIN) Association [...] imaging tests). Lab Interpretation (test code = 94698-6) [facility]normal [facility] CenterLipase, [id number] 02:05:25* Test Item Value Reference Range Interpretation Comme nts LIPASE (test code = 0871100564) 96 U/L 0-220 Lab Interpretation (test cod e = 10471-0) [facility] CenterCB with Pmhusanfmgwp3834-49-25 01:53:06* Test Item Value Reference Range Interpretation Comme nts WBC (test code = 6690-2) See_Comment H [Automated [employer]] The system which generated this result transmitted reference range: 4.30 - 11.10 10*3/?L. The reference range was not used to interpret this result as normal/abnormal. RBC (test code = 789-8) See_Comment H [Automated [employer] The system which generated this result transmitted [...] 34.3 g/dL 31.6-35.1 RDW-SD (test code = 49790-9) 40.5 fL 39.0-49.9 RDW-CV (test code = 788-0) 14.4 % 12.0-15.5 PLT (test code = 777-3) See_Comment [Automated messa ge] The system which generated this result transmitted reference range: 166 - 358 10*3/?L. The reference range was not used to interpret this result as normal/abnormal. MPV (test code = 10312-0) 9.4 fL 9.5-12.9 L NRBC/100 WBC (test code = 4522139373) See_Comment [Automated [employer]] The system which generated this result transmitted reference range: 0.0 - 10.0 /100 WBCs. The reference range was not used to interpret this result as normal/abnormal. NRBC x10^3 (test code = 3754190506) <0.01 See_Comment [Automated [employer]] The system which generated this result transmitted reference range: 10*3/?L. The reference range was not used to interpret this result as normal/abnormal. GRAN MAT (NEUT) % (test code = 770-8) 59.8 % IMM GRAN % (test code = 6392155556) 0.40 % LYMPH % (test code = 736-9) 31.0 % MONO % (test code = 5905-5) 6.3 % EOS % (test code = 713-8) 2.0 % BASO % (test code = 706-2) 0.5 % GRAN MAT x10^3(ANC) (test code = 7888003617) 6.73 10*3/uL 1.88-7.09 IMM GRAN x10^3 (test code = 8581309973) 0.05 10*3/uL 0.00-0.06 LYMPH x10^3 (test code = 731-0) 3.50 10*3/uL 1.32-3.29 H MONO x10^3 (test code = 742-7) 0.71 10*3/uL 0.33-0.92 EOS x10^3 (test code = 711-2) 0.23 10*3/uL 0.03-0.39 BASO x10^3 (test code = 704-7) 0.06 10*3/uL 0.01-0.07 Lab Interpretation (test code = 53820-8) Abnormal [facility] [id number] 01:45:00* Test Item Value Reference Range Interpretation Comme nts POCT PREG (test code = 1605) negatibe On board controls acceptable with C Line (test code = 3574) present POCT PREG LOT # (test code = 3575) [id number] POCT PREG TEST DATE ( test code = 3576) 09/04/2022 Lab Interpretation (test cod e = 40892-5) Normal [facility] [id number] 06:35:00* Test Item Value Reference Range Interpretation Comme nts POCT PREG (test code = 1605) negative On board controls acceptable with C Line (test code = 3574) present POCT PREG LOT # (test code = 3575) [id number] POCT PREG TEST DATE ( test code = 3576) Lab Interpretation (test cod e = 54829-4) [facility]TR[facility]IN [id number] 09:09:55* Test Item Value Reference Range Interpretation Comments TROPONIN I (test code = 3075532477) 0.001 ng/mL See_Comment [Automated message] The system [...] of biotin. Lab Interpretation (test code = 44786-4) Normal [facility] CenterD-YOUTW2131-17-90 07:23:51* Test Item Value Reference Range Interpretation Comments D-DIMER (test code = 5061580654) See_Comment [Automated message] The system which generated [...] a diagnosis. Lab Interpretation (test code = 83499-5) [facility] CenterLIPASE2021-[facility]-21 06:11:26* Test Item Value Reference Range Interpretation Comme nts LIPASE (test code = 2053547866) 155 U/L 0-220 Lab Interpretation (test cod e = 65004-6) Normal [facility] CenterTROPONIN L1574-03-57 06:06:05* Test Item Value Reference Range Interpretation Comments TROPONIN I (test code = 9045379256) 0.002 ng/mL See_Comment [Automated message] The system [...] of biotin. Lab Interpretation (test code = 87721-9) Normal [facility] CenterN-TERMINAL LAL-WMQ8445-74-21 06:03:04* Test Item Value Reference Range Interpretation Comme nts NT-proBNP (test code = 2285389844) 19 pg/mL See_Comment [Automated message] The system which generated this result transmitted reference range: <=125. The reference range was not used to interpret this result as normal/abnormal. DARWIN (test code = DARWIN) Biotin has been reported to cause a negative bias, interpret results relative to patient's use of biotin. Lab Interpretation (test code = 00074-8) [facility] CenterCOMP. METABOLIC PANEL (38811)2021-05-28 05:54:25* Test Item Value Reference Range Interpretation Comme nts NA (test code = 3523272986) 136 mmol/L 135-145 K (test code = 8164793561) 3.2 mmol/L 3.5-5.0 L CL (test code = 4156399632) 109 mmol/L 98-108 H CO2 TOTAL (test code = 5681737917) 16 mmol/L 23-31 L AGAP (test code = 5983215849) 2-16 BUN (test code = 6673239370) 11 mg/dL 7-23 GLUCOSE (test code = 8705770517) 144 mg/dL 70-110 H CREATININE (test code = 4917262483) 0.84 mg/dL 0.50-1.04 TOTAL BILI (test code = 3947439046) 0.2 mg/dL 0.1-1.1 CALCIUM (test code = 2879592987) 9.4 mg/dL 8.6-10.6 T PROTEIN (test code = 0625898460) 6.9 g/dL 6.3-8.2 ALBUMIN (test code = 0275055119) 3.9 g/dL 3.5-5.0 ALK PHOS (test code = 3818479569) 106 U/L 34-122 ALTv (test code = 1742-6) 20 U/L 5-35 AST(SGOT) (test code = 0494366358) 17 U/L 13-40 eGFR (test code = 3412067348) mL/min/1.73m2 DARWIN (test code = DARWIN) Association [...] imaging tests). Lab Interpretation (test code = 60526-2) Abnormal [facility] WITH [id number] 05:40:06* Test Item Value Reference Range Interpretation Comme nts WBC (test code = 6690-2) See_Comment [Automated [employer]] The system which generated this result transmitted [...] 33.3 g/dL 31.6-35.1 RDW-SD (test code = 94686-9) 39.7 fL 39.0-49.9 RDW-CV (test code = 788-0) 13.6 % 12.0-15.5 PLT (test code = 777-3) See_Comment [Automated [employer]] The system which generated this result transmitted reference range: 166 - 358 10*3/?L. The reference range was not used to interpret this result as normal/abnormal. MPV (test code = 89230-3) 9.5 fL 9.5-12.9 NRBC/100 WBC (test code = 1659911420) See_Comment [Automated [employer]] The system which generated this result transmitted reference range: 0.0 - 10.0 /100 WBCs. The reference range was not used to interpret this result as normal/abnormal. NRBC x10^3 (test code = 8142263089) <0.01 See_Comment [Automated messa ge] The system which generated this result transmitted reference range: 10*3/?L. The reference range was not used to interpret this result as normal/abnormal. GRAN MAT (NEUT) % (test code = 770-8) 53.7 % IMM GRAN % (test code = 4010367787) 0.50 % LYMPH % (test code = 736-9) 36.0 % MONO % (test code = 5905-5) 6.3 % EOS % (test code = 713-8) 2.8 % BASO % (test code = 706-2) 0.7 % GRAN MAT x10^3(ANC) (test code = 8863666776) 5.38 10*3/uL 1.88-7.09 IMM GRAN x10^3 (test code = 3626881607) 0.05 10*3/uL 0.00-0.06 LYMPH x10^3 (test code = 731-0) 3.60 10*3/uL 1.32-3.29 H MONO x10^3 (test code = 742-7) 0.63 10*3/uL 0.33-0.92 EOS x10^3 (test code = 711-2) 0.28 10*3/uL 0.03-0.39 BASO x10^3 (test code = 704-7) 0.07 10*3/uL 0.01-0.07 Lab Interpretation (test code = 52380-7) [facility] CenterPOCT JTZS6357-04-24 05:32:00* Test Item Value Reference Range Interpretation Comme nts POCT PREG (test code = 1605) negative On board controls acceptable with C Line (test code = 3574) present POCT PREG LOT # (test code = 3575) [id number] POCT PREG TEST DATE ( test code = 3576) 08/07/2022 Lab Interpretation (test cod e = 23488-5) [facility] CenterTroponin [id number] 11:13:57* Test Item Value Reference Range Interpretation Comments TROPONIN I (test code = 3383327130) 0.002 ng/mL See_Comment [Automated message] The system [...] of biotin. Lab Interpretation (test code = 15421-6) Normal [facility] Metabolic Panel (NA, K, CL, CO2, GLUCOSE, BUN, CREATININE, CA)2021-04-08 11:04:34* Test Item Value Reference Range Interpretation Comme nts NA (test code = 9917955871) 140 mmol/L 135-145 K (test code = 1230884511) 3.6 mmol/L 3.5-5.0 CL (test code = 1132407421) 111 mmol/L 98-108 H CO2 TOTAL (test code = 4668460022) 22 mmol/L 23-31 L AGAP (test code = 6182725094) 2-16 BUN (test code = 1634461205) 10 mg/dL 7-23 GLUCOSE (test code = 1253389947) 104 mg/dL 70-110 CREATININE (test code = 9254950872) 0.70 mg/dL 0.50-1.04 CALCIUM (test code = 0377490876) 8.7 mg/dL 8.6-10.6 eGFR (test code = 8863748409) mL/min/1.73m2 DARWIN (test code = DARWIN) Association [...] imaging tests). Lab Interpretation (test code = 08646-9) Abnormal [facility] with Jbvaxmorabil5633-51-88 10:46:50* Test Item Value Reference Range Interpretation Comme nts WBC (test code = 6690-2) See_Comment [Automated [employer]] The system which generated this result transmitted reference range: 4.30 - 11.10 10*3/?L. The reference range was not used to interpret this result as normal/abnormal. RBC (test code = 789-8) See_Comment [[employer]] The system which generated this result transmitted [...] 33.5 g/dL 31.6-35.1 RDW-SD (test code = 49124-2) 42.0 fL 39.0-49.9 RDW-CV (test code = 788-0) 14.1 % 12.0-15.5 PLT (test code = 777-3) See_Comment [[employer]] The system which generated this result transmitted reference range: 166 - 358 10*3/?L. The reference range was not used to interpret this result as normal/abnormal. MPV (test code = 07604-2) 10.0 fL 9.5-12.9 NRBC/100 WBC (test code = 5009082749) See_Comment [Automated me ssage] The system which generated this result transmitted reference range: 0.0 - 10.0 /100 WBCs. The reference range was not used to interpret this result as normal/abnormal. NRBC x10^3 (test code = 0933906061) <0.01 See_Comment [Automated me ssage] The system which generated this result transmitted reference range: 10*3/?L. The reference range was not used to interpret this result as normal/abnormal. GRAN MAT (NEUT) % (test code = 770-8) 59.1 % IMM GRAN % (test code = 8078571952) 0.70 % LYMPH % (test code = 736-9) 28.2 % MONO % (test code = 5905-5) 8.5 % EOS % (test code = 713-8) 3.0 % BASO % (test code = 706-2) 0.5 % GRAN MAT x10^3(ANC) (test code = 4631826692) 3.61 10*3/uL 1.88-7.09 IMM GRAN x10^3 (test code = 8296494710) 0.04 10*3/uL 0.00-0.06 LYMPH x10^3 (test code = 731-0) 1.72 10*3/uL 1.32-3.29 MONO x10^3 (test code = 742-7) 0.52 10*3/uL 0.33-0.92 EOS x10^3 (test code = 711-2) 0.18 10*3/uL 0.03-0.39 BASO x10^3 (test code = 704-7) 0.03 10*3/uL 0.01-0.07 [facility] [id number] 05:54:48* Test Item Value Reference Range Interpretation Comments TROPONIN I (test code = 2202268955) 0.002 ng/mL See_Comment [Automated message] The system [...] of biotin. Lab Interpretation (test code = 77783-3) [facility] CenterThyroid Stimulating Hormone (TSH)2021-04-08 00:51:16* Test Item Value Reference Range Interpretation Comme nts TSH (test code = 4051284269) See_Comment [Automated [employer]] The system which generated this result transmitted reference range: 0.45 - 4.70 mIU/L. The reference range was not used to interpret this result as normal/abnormal. Lab Interpretation (test code = 94542-5) [facility]2021-04-08 00:26:53* Test Item Value Reference Range Interpretation Comme nts HGB A1C (test code = 4548-4) 5.5 % 4.0-5.7 DARWIN (test code = DARWIN) Reference RangesNormal: <5.7%Prediabetes: 5.7 - 6.4%Diabetes: > 6.5% Lab Interpretation (test code = 94038-1) [facility] (Total Cholesterol, Triglycerides, HDL)2021-04-08 00:20:12* Test Item Value Reference Range Interpretation Comme nts CHOL (test code = 9910606014) 223 mg/dL 120-200 H HDL (test code = 8254363842) 35 mg/dL >50 L HDLC RATIO (test code = 6705228025) See_Comment H [Automated TC Ice Cream] The system which generated this result transmitted reference range: <=4.5. The reference range was not used to interpret this result as normal/abnormal. TRIG (test code = 1327049773) 223 mg/dL 30-170 H LDL CHOL (test code = 32898-5) 143 mg/dL See_Comment [Automated messa ge] The system which generated this result transmitted reference range: <=160. The reference range was not used to interpret this result as normal/abnormal. VLDL (test code = 9656061715) 45 mg/dL 5-60 Lab Interpretation (test code = 18289-3) [facility] Center[facility] [id number] 00:20:07* Test Item Value Reference Range Interpretation Comme nts MAGNESIUM (test code = 3140046829) 1.7 mg/dL 1.7-2.4 Lab Interpretation (test cod e = 40659-0) [facility] CenterCOMP[facility] METABOLIC PANEL (13162)2021-04-07 23:04:13* Test Item Value Reference Range Interpretation Comme nts NA (test code = 5100897663) 139 mmol/L 135-145 K (test code = 0955125827) 3.4 mmol/L 3.5-5.0 L CL (test code = 7499992397) 109 mmol/L 98-108 H CO2 TOTAL (test code = 7699624756) 22 mmol/L 23-31 L AGAP (test code = 6012322761) 2-16 BUN (test code = 8276419257) 10 mg/dL 7-23 GLUCOSE (test code = 3549024320) 97 mg/dL 70-110 CREATININE (test code = 6851629938) 0.84 mg/dL 0.50-1.04 TOTAL BILI (test code = 4386042110) 0.3 mg/dL 0.1-1.1 CALCIUM (test code = 4964489418) 9.2 mg/dL 8.6-10.6 T PROTEIN (test code = 6187446375) 6.6 g/dL 6.3-8.2 ALBUMIN (test code = 0830120479) 3.8 g/dL 3.5-5.0 ALK PHOS (test code = 6637065572) 69 U/L 34-122 ALTv (test code = 1742-6) 18 U/L 5-35 AST(SGOT) (test code = 5290297428) 19 U/L 13-40 eGFR (test code = 8113858674) mL/min/1.73m2 DARWIN (test code = DARWIN) Association [...] imaging tests). Lab Interpretation (test code = 54067-0) [facility]normal [facility] CenterTRCHAYCAYETANON [id number] 22:33:04* Test Item Value Reference Range Interpretation Comments TROPONIN I (test code = 0475556254) 0.001 ng/mL See_Comment [Automated message] The system [...] of biotin. Lab Interpretation (test code = 94734-1) Normal [facility] CenterN-TERMINAL [id number]-[id number] 22:30:05* Test Item Value Reference Range Interpretation Comme nts NT-proBNP (test code = 8672516915) 352 pg/mL See_Comment H [Automated message] The system which generated this result transmitted reference range: <=125. The reference range was not used to interpret this result as normal/abnormal. DARWIN (test code = DARWIN) Biotin has been reported to cause a negative bias, interpret results relative to patient's use of biotin. Lab Interpretation (test code = 29860-0) [facility]normal [facility] CenterACTIVATED PARTIAL THRMPLAS [id number] 22:28:48* Test Item Value Reference Range Interpretation Comme nts APTT Patient (test code = 3173-2) See_Comment [Automated message] The system which generated this result transmitted reference range: 23 - 38 Seconds. The reference range was not used to interpret this result as normal/abnormal. DARWIN (test code = DARWIN) The [facility] patient population mean normal value for aPTT is 30 seconds. Lab Interpretation (test code = 39569-0) Normal [facility] CenterPROTHROMBIN TIME / [id number] 22:26:44* Test Item Value Reference Range Interpretation [...] the indications. Lab Interpretation (test code = 63637-4) Normal [facility] CenterLIPASE2021-10-01 22:20:05* Test Item Value Reference Range Interpretation Comme nts LIPASE (test code = 2256021551) 66 U/L 0-220 Lab Interpretation (test cod e = 92288-4) Normal [facility] CenterCBC WITH HDOT2614-11-19 22:07:01* Test Item Value Reference Range Interpretation Comme nts WBC (test code = 6690-2) See_Comment [Automated messa ge] The system which generated this result transmitted reference range: 4.30 - 11.10 10*3/?L. The reference range was not used to interpret this result as normal/abnormal. RBC (test code = 789-8) See_Comment [Automated [employer]] The system which generated this result [...] 33.2 g/dL 31.6-35.1 RDW-SD (test code = 97234-8) 41.6 fL 39.0-49.9 RDW-CV (test code = 788-0) 14.1 % 12.0-15.5 PLT (test code = 777-3) See_Comment [Automated [employer]] The system which generated this result transmitted reference range: 166 - 358 10*3/?L. The reference range was not used to interpret this result as normal/abnormal. MPV (test code = 98507-0) 9.2 fL 9.5-12.9 L NRBC/100 WBC (test code = 7726010845) See_Comment [Automated [employer] ssage] The system which generated this result transmitted reference range: 0.0 - 10.0 /100 WBCs. The reference range was not used to interpret this result as normal/abnormal. NRBC x10^3 (test code = 7321180573) <0.01 See_Comment [Automated [employer]] The system which generated this result transmitted reference range: 10*3/?L. The reference range was not used to interpret this result as normal/abnormal. GRAN MAT (NEUT) % (test code = 770-8) 61.6 % IMM GRAN % (test code = 4126080080) 0.60 % LYMPH % (test code = 736-9) 28.7 % MONO % (test code = 5905-5) 4.9 % EOS % (test code = 713-8) 3.7 % BASO % (test code = 706-2) 0.5 % GRAN MAT x10^3(ANC) (test code = 8698633662) 6.24 10*3/uL 1.88-7.09 IMM GRAN x10^3 (test code = 2207664493) 0.06 10*3/uL 0.00-0.06 LYMPH x10^3 (test code = 731-0) 2.90 10*3/uL 1.32-3.29 MONO x10^3 (test code = 742-7) 0.50 10*3/uL 0.33-0.92 EOS x10^3 (test code = 711-2) 0.37 10*3/uL 0.03-0.39 BASO x10^3 (test code = 704-7) 0.05 10*3/uL 0.01-0.07 Lab Interpretation (test code = 98209-5) [facility]normal [facility] CenterURINALYSIS2021-07-08 08:49:55* Test Item Value Reference Range Interpretation Comme nts APPEARANCE (test code = 2600376966) Cloudy Clear A COLOR (test code = 1441588817) Yellow Yellow PH (test code = 4148424598) 4.8-8.0 SP GRAVITY (test code = 2069097686) 1.003-1.030 GLU U QUAL (test code = 0959975898) Normal Normal BLOOD (test code = 9458216881) Negative Negative KETONES (test code = 1902170298) Negative Negative PROTEIN (test code = 2887-8) Negative Negative UROBILIN (test code = 3361336222) Normal Normal BILIRUBIN (test code = 0484867560) 2 mg/dL Negative A NITRITE (test code = 9434016036) Negative Negative LEUK MARC (test code = 7495901141) 75/uL Negative A RBC/HPF (test code = 9256384005) See_Comment H [Automated [employer]] The system which generated this result transmitted reference range: 0 - 3 HPF. The reference range was not used to interpret this result as normal/abnormal. WBC/HPF (test code = 1697425501) See_Comment H [Automated messa ge] The system which generated this result transmitted reference range: 0 - 5 HPF. The reference range was not used to interpret this result as normal/abnormal. BACTERIA (test code = 1390186035) Moderate Negative A MUCOUS (test code = 7700628388) Slight Negative LPF A SQ EPITH (test code = 0784680686) HPF YEAST BUD (test code = 5524196193) See_Comment H [Automated messa ge] The system which generated this result transmitted reference range: <=1 HPF. The reference range was not used to interpret this result as normal/abnormal. Ictotest (test code = 6556197234) Negative Lab Interpretation (test code = 43559-6) Abnormal [facility]. METABOLIC PANEL (49713)2021-01-12 08:49:44* Test Item Value Reference Range Interpretation Comme nts NA (test code = 0382122989) 137 mmol/L 135-145 K (test code = 0222307838) 4.6 mmol/L 3.5-5.0 CL (test code = 1845887991) 108 mmol/L 98-108 CO2 TOTAL (test code = 9735689778) 21 mmol/L 23-31 L AGAP (test code = 1315231126) 2-16 BUN (test code = 8621008909) 19 mg/dL 7-23 GLUCOSE (test code = 1079235927) 107 mg/dL 70-110 CREATININE (test code = 8925726412) 0.63 mg/dL 0.50-1.04 TOTAL BILI (test code = 1679051455) 0.4 mg/dL 0.1-1.1 CALCIUM (test code = 9874150793) 9.2 mg/dL 8.6-10.6 T PROTEIN (test code = 8094567829) 7.4 g/dL 6.3-8.2 ALBUMIN (test code = 6626217759) 4.2 g/dL 3.5-5.0 ALK PHOS (test code = 1654028585) 179 U/L 34-122 H ALTv (test code = 1742-6) 113 U/L 5-35 H AST(SGOT) (test code = 7110327348) 38 U/L 13-40 eGFR (test code = 0077277142) mL/min/1.73m2 DARWIN (test code = DARWIN) Association [...] imaging tests). Lab Interpretation (test code = 79250-5) Abnormal [facility] WITH [id number] 08:11:02* Test Item Value Reference Range Interpretation Comme nts WBC (test code = 6690-2) See_Comment H [Automated [employer]] The system which generated this result transmitted reference range: 4.30 - 11.10 10*3/?L. The reference range was not used to interpret this result as normal/abnormal. RBC (test code = 789-8) See_Comment [Automated [employer]] The system which generated this result transmitted [...] 33.3 g/dL 31.6-35.1 RDW-SD (test code = 24849-4) 41.6 fL 39.0-49.9 RDW-CV (test code = 788-0) 14.0 % 12.0-15.5 PLT (test code = 777-3) See_Comment [Automated messa ge] The system which generated this result transmitted reference range: 166 - 358 10*3/?L. The reference range was not used to interpret this result as normal/abnormal. MPV (test code = 68825-0) 9.5 fL 9.5-12.9 NRBC/100 WBC (test code = 9174834047) See_Comment [Automated [employer] ssage] The system which generated this result transmitted reference range: 0.0 - 10.0 /100 WBCs. The reference range was not used to interpret this result as normal/abnormal. NRBC x10^3 (test code = 8403558802) <0.01 See_Comment [Automated messa ge] The system which generated this result transmitted reference range: 10*3/?L. The reference range was not used to interpret this result as normal/abnormal. GRAN MAT (NEUT) % (test code = 770-8) 68.0 % IMM GRAN % (test code = 8607107882) 0.80 % LYMPH % (test code = 736-9) 23.6 % MONO % (test code = 5905-5) 5.1 % EOS % (test code = 713-8) 2.1 % BASO % (test code = 706-2) 0.4 % GRAN MAT x10^3(ANC) (test code = 0852137872) 8.86 10*3/uL 1.88-7.09 H IMM GRAN x10^3 (test code = 4865197492) 0.11 10*3/uL 0.00-0.06 H LYMPH x10^3 (test code = 731-0) 3.07 10*3/uL 1.32-3.29 MONO x10^3 (test code = 742-7) 0.66 10*3/uL 0.33-0.92 EOS x10^3 (test code = 711-2) 0.27 10*3/uL 0.03-0.39 BASO x10^3 (test code = 704-7) 0.05 10*3/uL 0.01-0.07 Lab Interpretation (test code = 77560-2) [facility] CenterPOCT [id number] 08:02:00* Test Item Value Reference Range Interpretation Comme nts POCT PREG (test code = 1605) negative On board controls acceptable with C Line (test code = 3574) positive POCT PREG LOT # (test code = 3575) [id number] POCT PREG TEST DATE ( test code = 3576) 07/07/2022 Lab Interpretation (test cod e = 35956-3) Normal [facility] CenterTROPONIN [id number] 01:55:05* Test Item Value Reference Range Interpretation Comme nts TROPONIN I (test code = 9416129041) 0.000 ng/mL See_Comment [Automated message] The system [...] biotin. ? Lab Interpretation (test code = 84565-1) Normal [facility] CenterChes 1 Rpsq2336-90-80 23:41:46No radiographic evidence of an acute cardiopulmonary process. RL: 2109AFC: 55658 EXAM: XR CHEST 1 VW ORDERING PROVIDER: [...] evidence of an acute cardiopulmonary process.RL: 2109AFC: 78616 [facility] [id number] 23:07:21* Test Item Value Reference Range Interpretation Comme nts TROPONIN I (test code = 2030073462) 0.000 ng/mL See_Comment [Automated message] The system [...] biotin. ? Lab Interpretation (test code = 84459-1) Normal [facility] CenterN-TERMINAL [id number]-FUS8553-86-05 23:04:20* Test Item Value Reference Range Interpretation Comme nts NT-proBNP (test code = 6554457395) 14 pg/mL See_Comment [Automated message] The system which generated this result transmitted reference range: <=125. The reference range was not used to interpret this result as normal/abnormal. DARWIN (test code = DARWIN) Biotin has been reported to cause a negative bias, interpret results relative to patient's use of biotin. Lab Interpretation (test code = 05124-5) Normal [facility] CenterHepatic Function Panel (ALB, T.PRO, BILI T, BU/BC, ALT, AST, ALK PHOS)2020-12-10 22:58:16* Test Item Value Reference Range Interpretation Comme nts TOTAL BILI (test code = 4003633123) 0.5 mg/dL 0.1-1.1 BILI UNCON (test code = 5373884753) 0.3 mg/dL 0.1-1.1 BILI CONJ (test code = 3694866768) 0.0 mg/dL 0.0-0.3 T PROTEIN (test code = 3099731607) 8.1 g/dL 6.3-8.2 ALBUMIN (test code = 0792451212) 4.7 g/dL 3.5-5.0 ALK PHOS (test code = 7789192285) 104 U/L 34-122 ALTv (test code = 1742-6) 18 U/L 5-35 AST(SGOT) (test code = 5777409148) 23 U/L 13-40 Lab Interpretation (test cod e = 74541-3) Normal [facility] Metabolic Panel (NA, K, CL, CO2, GLUCOSE, BUN, CREATININE, CA)2020-12-10 22:57:56* Test Item Value Reference Range Interpretation Comme nts NA (test code = 9323918019) 135 mmol/L 135-145 K (test code = 2064948110) 3.7 mmol/L 3.5-5.0 CL (test code = 5094054270) 105 mmol/L 98-108 CO2 TOTAL (test code = 8203493100) 18 mmol/L 23-31 L AGAP (test code = 6897907283) 2-16 BUN (test code = 6145289792) 14 mg/dL 7-23 GLUCOSE (test code = 4822160868) 108 mg/dL 70-110 CREATININE (test code = 6554661078) 0.56 mg/dL 0.50-1.04 CALCIUM (test code = 3396040261) 9.8 mg/dL 8.6-10.6 eGFR (test code = 3279292288) mL/min/1.73m2 DARWIN (test code = DARWIN) Association [...] imaging tests). Lab Interpretation (test code = 82707-2) Abnormal [facility] CenterLipase Bsxnb3594-32-48 22:57:56* Test Item Value Reference Range Interpretation Comme nts LIPASE (test code = 1051877946) 122 U/L 0-220 Lab Interpretation (test cod e = 08265-7) Normal [facility] CenterD-PIEPN7699-11-82 22:52:34* Test Item Value Reference Range Interpretation Comments D-DIMER (test code = 6923820949) See_Comment [Automated message] The system which generated [...] a diagnosis. Lab Interpretation (test code = 78278-3) Normal [facility] CenterUrinalysis2021-06-05 22:52:29* Test Item Value Reference Range Interpretation Comme nts APPEARANCE (test code = 8203720236) Hazy Clear A COLOR (test code = 2502974532) Yellow Yellow PH (test code = 5069995523) 4.8-8.0 SP GRAVITY (test code = 1292245096) 1.003-1.030 GLU U QUAL (test code = 5228632875) Normal Normal BLOOD (test code = 9961382312) Negative Negative KETONES (test code = 3027873734) Negative Negative PROTEIN (test code = 2887-8) Negative Negative UROBILIN (test code = 3044820838) Normal Normal BILIRUBIN (test code = 4208944258) 2 mg/dL Negative A NITRITE (test code = 6476378946) Negative Negative LEUK MARC (test code = 4422054735) 25/uL Negative A RBC/HPF (test code = 2924723302) See_Comment [Automated [employer]] The system which generated this result transmitted reference range: 0 - 3 HPF. The reference range was not used to interpret this result as normal/abnormal. WBC/HPF (test code = 6409146459) See_Comment [Automated [employer]] The system which generated this result transmitted reference range: 0 - 5 HPF. The reference range was not used to interpret this result as normal/abnormal. BACTERIA (test code = 8537801193) Few Negative A MUCOUS (test code = 3896274434) Slight Negative LPF A SQ EPITH (test code = 4925211206) HPF Lab Interpretation (test code = 25833-1) Abnormal [facility] with Relrfaqrquus1707-94-09 22:45:56* Test Item Value Reference Range Interpretation [...] 33.5 g/dL 31.6-35.1 RDW-SD (test code = 84673-6) 40.5 fL 39.0-49.9 RDW-CV (test code = 788-0) 13.3 % 12.0-15.5 PLT (test code = 777-3) See_Comment H [Automated message] The system which generated this result transmitted reference range: 166 - 358 10*3/?L. The reference range was not used to interpret this result as normal/abnormal. MPV (test code = 96125-1) 9.2 fL 9.5-12.9 L NRBC/100 WBC (test code = 3433383000) See_Comment [Automated message] The system which generated this result transmitted reference range: 0.0 - 10.0 /100 WBCs. The reference range was not used to interpret this result as normal/abnormal. NRBC x10^3 (test code = 0609429112) <0.01 See_Comment [Automated message] The system which generated this result transmitted reference range: 10*3/?L. The reference range was not used to interpret this result as normal/abnormal. GRAN MAT (NEUT) % (test code = 770-8) 73.4 % IMM GRAN % (test code = 7787445929) 0.50 % LYMPH % (test code = 736-9) 17.5 % MONO % (test code = 5905-5) 6.5 % EOS % (test code = 713-8) 1.6 % BASO % (test code = 706-2) 0.5 % GRAN MAT x10^3(ANC) (test code = 5695552535) 10.21 10*3/uL 1.88-7.09 H IMM GRAN x10^3 (test code = 7103757999) 0.07 10*3/uL 0.00-0.06 H LYMPH x10^3 (test code = 731-0) 2.44 10*3/uL 1.32-3.29 MONO x10^3 (test code = 742-7) 0.90 10*3/uL 0.33-0.92 EOS x10^3 (test code = 711-2) 0.22 10*3/uL 0.03-0.39 BASO x10^3 (test code = 704-7) 0.07 10*3/uL 0.01-0.07 Lab Interpretation (test code = 59598-6) [facility]normal [facility] CenterPOCT Xsty2688-65-96 22:32:00* Test Item Value Reference Range Interpretation Comme nts POCT PREG (test code = 1605) negative On board controls acceptable with C Line (test code = 3574) present POCT PREG LOT # (test code = 3575) [id number] POCT PREG TEST DATE ( test code = 3576) 06/06/2022 Lab Interpretation (test cod e = 29051-2) [facility] CenterUrinalysis2021-05-30 21:34:43* Test Item Value Reference Range Interpretation Comme nts APPEARANCE (test code = 6109012796) Clear Clear COLOR (test code = 3520873017) Yellow Yellow PH (test code = 5935156000) 4.8-8.0 SP GRAVITY (test code = 3738520578) 1.003-1.030 GLU U QUAL (test code = 5646748221) Normal Normal BLOOD (test code = 4319569322) Negative Negative KETONES (test code = 5206630931) Negative Negative PROTEIN (test code = 2887-8) Negative Negative UROBILIN (test code = 6074194918) Normal Normal BILIRUBIN (test code = 8735214062) Negative Negative NITRITE (test code = 8239602437) Negative Negative LEUK MARC (test code = 1816323038) Negative Negative RBC/HPF (test code = 8042444989) See_Comment [Automated [employer]] The system which generated this result transmitted reference range: 0 - 3 HPF. The reference range was not used to interpret this result as normal/abnormal. WBC/HPF (test code = 4403484528) <1 See_Comment [Automated [employer]] The system which generated this result transmitted reference range: 0 - 5 HPF. The reference range was not used to interpret this result as normal/abnormal. BACTERIA (test code = 4677974920) Negative Negative MUCOUS (test code = 4064737236) Slight Negative LPF A SQ EPITH (test code = 7158617248) [facility] Lab Interpretation (test code = 00988-9) [facility]normal [facility] CenterPOCT Opos4901-09-00 21:18:00* Test Item Value Reference Range Interpretation Comme nts POCT PREG (test code = 1605) negative On board controls acceptable with C Line (test code = 3574) present POCT PREG LOT # (test code = 3575) [id number] POCT PREG TEST DATE ( test code = 3576) 06/06/2022 Lab Interpretation (test cod e = 67894-5) Normal [facility] CenterXR ANKLE 3+ VW MSKZ8745-32-95 21:11:00No acute bony abnormality. Preliminary Report Dictated [...] and agree with the abovereport.[facility] CenterTroponin [id number] 20:59:44* Test Item Value Reference Range Interpretation Comme nts TROPONIN I (test code = 2162907042) 0.000 ng/mL See_Comment [Automated message] The system [...] biotin. ? Lab Interpretation (test code = 02985-8) Normal [facility] CenterLipase Dfpci3445-52-84 20:48:20* Test Item Value Reference Range Interpretation Comme nts LIPASE (test code = 7595155292) 96 U/L 0-220 Lab Interpretation (test cod e = 47865-2) Normal [facility] CenterBasic Metabolic Panel (NA, K, CL, CO2, GLUCOSE, BUN, CREATININE, CA)2020-12-04 20:48:20* Test Item Value Reference Range Interpretation Comme nts NA (test code = 3045731893) 138 mmol/L 135-145 K (test code = 4562847793) 3.8 mmol/L 3.5-5.0 CL (test code = 2722722068) 108 mmol/L 98-108 CO2 TOTAL (test code = 3749821418) 21 mmol/L 23-31 L AGAP (test code = 8044599051) 2-16 BUN (test code = 6966310635) 13 mg/dL 7-23 GLUCOSE (test code = 9392374232) 107 mg/dL 70-110 CREATININE (test code = 1278796269) 0.66 mg/dL 0.50-1.04 CALCIUM (test code = 2445987988) 9.3 mg/dL 8.6-10.6 eGFR (test code = 7245053383) mL/min/1.73m2 DARWIN (test code = DARWIN) Association [...] imaging tests). Lab Interpretation (test code = 95776-2) [facility]normal [facility] CenterHepatic Function Panel (ALB, T.PRO, BILI T, BU/BC, ALT, AST, ALK PHOS)2020-12-04 20:48:20* Test Item Value Reference Range Interpretation Comme nts TOTAL BILI (test code = 1921241120) 0.3 mg/dL 0.1-1.1 BILI UNCON (test code = 0665895402) 0.1 mg/dL 0.1-1.1 BILI CONJ (test code = 7570973891) 0.0 mg/dL 0.0-0.3 T PROTEIN (test code = 8663308104) 7.0 g/dL 6.3-8.2 ALBUMIN (test code = 2853428324) 4.0 g/dL 3.5-5.0 ALK PHOS (test code = 2189708801) 114 U/L 34-122 ALTv (test code = 1742-6) 30 U/L 5-35 AST(SGOT) (test code = 6643660860) 23 U/L 13-40 Lab Interpretation (test cod e = 09531-5) Normal [facility] with Iliyteymgpcc9306-16-39 20:35:01* Test Item Value Reference Range Interpretation [...] 34.0 g/dL 31.6-35.1 RDW-SD (test code = 86796-4) 39.8 fL 39.0-49.9 RDW-CV (test code = 788-0) 12.9 % 12.0-15.5 PLT (test code = 777-3) See_Comment [Automated messa ge] The system which generated this result transmitted reference range: 166 - 358 10*3/?L. The reference range was not used to interpret this result as normal/abnormal. MPV (test code = 70873-1) 9.3 fL 9.5-12.9 L NRBC/100 WBC (test code = 7350695287) See_Comment [Automated me ssage] The system which generated this result transmitted reference range: 0.0 - 10.0 /100 WBCs. The reference range was not used to interpret this result as normal/abnormal. NRBC x10^3 (test code = 5485772892) <0.01 See_Comment [Automated messa ge] The system which generated this result transmitted reference range: 10*3/?L. The reference range was not used to interpret this result as normal/abnormal. GRAN MAT (NEUT) % (test code = 770-8) 71.5 % IMM GRAN % (test code = 4052516314) 0.30 % LYMPH % (test code = 736-9) 19.8 % MONO % (test code = 5905-5) 6.2 % EOS % (test code = 713-8) 1.8 % BASO % (test code = 706-2) 0.4 % GRAN MAT x10^3(ANC) (test code = 3529729907) 6.79 10*3/uL 1.88-7.09 IMM GRAN x10^3 (test code = 0133954374) 0.03 10*3/uL 0.00-0.06 LYMPH x10^3 (test code = 731-0) 1.88 10*3/uL 1.32-3.29 MONO x10^3 (test code = 742-7) 0.59 10*3/uL 0.33-0.92 EOS x10^3 (test code = 711-2) 0.17 10*3/uL 0.03-0.39 BASO x10^3 (test code = 704-7) 0.04 10*3/uL 0.01-0.07 Lab Interpretation (test code = 14507-7) [facility]normal [facility] CenterDR[facility] SCREEN ER (URINE)2020-11-04 02:54:38* Test Item Value Reference Range Interpretation Comme nts AMPHET (test code = 1978776465) Negative Negative Cocaine Metabolite (test code = 1973900247) Negative Negative OPIATES (test code = 6426418818) Presumptive Positive Negative A THC (test code = 7683822925) Negative Negative DARWIN (test code = DARWIN) Urine Drug Cutoff Ranges Amphetamine: ? 1,000 ng/mLCocaine: ? 150 ng/mLOpiates: ? 300 ng/mLCannabinoids: ?50 ng/mL The results are to be used only for medical (i.e., treatment) purposes. Unconfirmed screening results must not be used for non-medical purposes (e.g., employment testing, legal testing). Lab Interpretation (test code = 51430-3) Abnormal [facility] CenterTROPONIN [id number] 02:51:11* Test Item Value Reference Range Interpretation Comme [facility] TROPONIN I (test code = 2238910122) 0.001 ng/mL See_Comment [Automated message] The system [...] biotin. ? Lab Interpretation (test code = 82580-4) Normal [facility] CenteraPTT2021-04-30 02:41:10* Test Item Value Reference Range Interpretation Comme nts APTT Patient (test code = 3173-2) See_Comment [Automated message] The system which generated this result transmitted reference range: 23 - 38 Seconds. The reference range was not used to interpret this result as normal/abnormal. DARWIN (test code = DARWIN) The [facility] patient population mean normal value for aPTT is 30 seconds. Lab Interpretation (test code = 70627-7) Normal [facility] CenterURINALYSIS2021-04-30 02:40:40* Test Item Value Reference Range Interpretation Comme nts APPEARANCE (test code = 3093536644) Clear Clear COLOR (test code = 5621424480) Yellow Yellow PH (test code = 5587411397) 4.8-8.0 SP GRAVITY (test code = 6905222687) 1.003-1.030 GLU U QUAL (test code = 6112914069) Normal Normal BLOOD (test code = 2431904323) Negative Negative KETONES (test code = 8663820264) Negative Negative PROTEIN (test code = 2887-8) Negative Negative UROBILIN (test code = 8848773804) Normal Normal BILIRUBIN (test code = 9833584139) Negative Negative NITRITE (test code = 7355040686) Negative Negative LEUK MARC (test code = 5963935627) Negative Negative RBC/HPF (test code = 1450829703) <1 See_Comment [Automated messa ge] The system which generated this result transmitted reference range: 0 - 3 HPF. The reference range was not used to interpret this result as normal/abnormal. WBC/HPF (test code = 1538080569) <1 See_Comment [Automated messa ge] The system which generated this result transmitted reference range: 0 - 5 HPF. The reference range was not used to interpret this result as normal/abnormal. BACTERIA (test code = 7012608940) Negative Negative MUCOUS (test code = 0659862201) Slight Negative LPF A SQ EPITH (test code = 1593770787) HPF Lab Interpretation (test code = 14068-5) [facility] (67239)2020-11-04 02:40:09* Test Item Value Reference Range Interpretation Comme nts NA (test code = 3112448002) 141 mmol/L 135-145 K (test code = 0070134148) 4.1 mmol/L 3.5-5.0 CL (test code = 5009470079) 110 mmol/L 98-108 H CO2 TOTAL (test code = 5242049344) 22 mmol/L 23-31 L AGAP (test code = 5288893963) 2-16 BUN (test code = 9386953090) 15 mg/dL 7-23 GLUCOSE (test code = 8833994817) 115 mg/dL 70-110 H CREATININE (test code = 6966060583) 0.69 mg/dL 0.50-1.04 TOTAL BILI (test code = 7233877853) 0.2 mg/dL 0.1-1.1 CALCIUM (test code = 2768328045) 9.2 mg/dL 8.6-10.6 T PROTEIN (test code = 3449367363) 6.8 g/dL 6.3-8.2 ALBUMIN (test code = 8855707559) 4.1 g/dL 3.5-5.0 ALK PHOS (test code = 0689158063) 69 U/L 34-122 ALTv (test code = 1742-6) 20 U/L 5-35 AST(SGOT) (test code = 2130273480) 23 U/L 13-40 eGFR (test code = 2012814240) mL/min/1.73m2 DARWIN (test code = DARWIN) Association [...] imaging tests). Lab Interpretation (test code = 44954-8) [facility]normal [facility] CenterLIP[facility], [id number] 02:39:49* Test Item Value Reference Range Interpretation Comme nts LIPASE (test code = 4938866795) 117 U/L 0-220 Lab Interpretation (test cod e = 13643-5) Normal [facility] CenterPROTHROMBIN TIME / [id number] 02:39:08* Test Item Value Reference Range Interpretation Comme nts PROTIME PATIENT (test code = 5964-2) See_Comment [Automated [employer] The system which generated this result transmitted reference range: 12.0 - 14.7 Seconds. The reference range was not used to interpret this result as normal/abnormal. INR (test code = 6301-6) Normal INR <1.1; Warfarin Therapeutic range 2.0 to 3.0 or 2.5 to 3.5, depending upon the indications. Lab Interpretation (test code = 50655-8) Normal [facility] CenterCBC WITH [id number] 02:30:11* Test Item Value Reference Range Interpretation Comme nts WBC (test code = 6690-2) See_Comment H [Automated [employer] The system which generated this result transmitted reference range: 4.30 - 11.10 10*3/?L. The reference range was not used to interpret this result as normal/abnormal. RBC (test code = 789-8) See_Comment [Automated [employer] The system which generated this result transmitted [...] 32.8 g/dL 31.6-35.1 RDW-SD (test code = 10788-4) 44.1 fL 39.0-49.9 RDW-CV (test code = 788-0) 13.8 % 12.0-15.5 PLT (test code = 777-3) See_Comment [Automated messa ge] The system which generated this result transmitted reference range: 166 - 358 10*3/?L. The reference range was not used to interpret this result as normal/abnormal. MPV (test code = 49376-1) 9.6 fL 9.5-12.9 NRBC/100 WBC (test code = 7323898676) See_Comment [Automated [employer] ssage] The system which generated this result transmitted reference range: 0.0 - 10.0 /100 WBCs. The reference range was not used to interpret this result as normal/abnormal. NRBC x10^3 (test code = 0583606561) <0.01 See_Comment [Automated messa ge] The system which generated this result transmitted reference range: 10*3/?L. The reference range was not used to interpret this result as normal/abnormal. GRAN MAT (NEUT) % (test code = 770-8) 65.9 % IMM GRAN % (test code = 7293125084) 0.70 % LYMPH % (test code = 736-9) 25.9 % MONO % (test code = 5905-5) 5.1 % EOS % (test code = 713-8) 2.0 % BASO % (test code = 706-2) 0.4 % GRAN MAT x10^3(ANC) (test code = 1957987492) 8.82 10*3/uL 1.88-7.09 H IMM GRAN x10^3 (test code = 0287494092) 0.09 10*3/uL 0.00-0.06 H LYMPH x10^3 (test code = 731-0) 3.46 10*3/uL 1.32-3.29 H MONO x10^3 (test code = 742-7) 0.68 10*3/uL 0.33-0.92 EOS x10^3 (test code = 711-2) 0.27 10*3/uL 0.03-0.39 BASO x10^3 (test code = 704-7) 0.05 10*3/uL 0.01-0.07 Lab Interpretation (test code = 45679-4) [facility]normal [facility] CenterCOVID[facility] (ID NOW RAPID TESTING)2020-09-17 16:56:05* Test Item Value Reference Range Interpretation Comme nts SARS-CoV-2 Rapid ID NOW (test code = 14063-1) Not Detected Not Detected DARWIN (test code = DARWIN) ID NOW COVID-19 As say is an isothermal nucleic acid amplification test intended for the qualitative detection of nucleic acid from SARS-CoV-2 viral RNA in nasopharyngeal ([employer]) specimens. It is used under Emergency Use [...] clinically indicated. Lab Interpretation (test code = 52979-1) [facility] [id number] 16:54:09* Test Item Value Reference Range Interpretation Comme nts Streptococcus pyogenes (grou p A) antigen (test code = 70033-6) Negative Negative Lab Interpretation (test cod e = 47939-8) Normal [facility] CenterXR HAND 3+ VW [id number] 07:29:48 Impression: No acute fracture or dislocation. RL: 2824AFC: 50111 End of Report Exam: Left Hand, 09/07/2020 [...] swelling.IMPRESSIONImpression: No acute fracture or dislocation.RL: 2824AFC: 55345Pvb of Report [facility] CenterXR FOREARM 2 VW [id number] 07:28:55No acute abnormality of the left forearm. RL: 6200AFC: 68629 Patient name: CHARITY JOHNSONGEDOB: 1980 40 years [...] acute abnormality of the left forearm.RL: 6200AFC: 40495 [facility] 09:06:00* Test Item Value Reference Range Interpretation Comme nts APPEARANCE (test code = 3612197401) Hazy Clear A COLOR (test code = 4749466278) Yellow Yellow PH (test code = 4143570831) 4.8-8.0 SP GRAVITY (test code = 9714928756) 1.003-1.030 GLU U QUAL (test code = 6995344682) Normal Normal BLOOD (test code = 2508390051) Negative Negative KETONES (test code = 1058134022) Negative Negative PROTEIN (test code = 2887-8) Negative Negative UROBILIN (test code = 3365237905) Normal Normal BILIRUBIN (test code = 2938652271) Negative Negative NITRITE (test code = 5248728658) Negative Negative LEUK MARC (test code = 5089850267) Negative Negative RBC/HPF (test code = 9606333405) See_Comment [Automated messa ge] The system which generated this result transmitted reference range: 0 - 3 HPF. The reference range was not used to interpret this result as normal/abnormal. WBC/HPF (test code = 0666271115) <1 See_Comment [Automated messa ge] The system which generated this result transmitted reference range: 0 - 5 HPF. The reference range was not used to interpret this result as normal/abnormal. BACTERIA (test code = 0034049364) Moderate Negative A SQ EPITH (test code = 0555165372) HPF Lab Interpretation (test code = 79762-4) Abnormal [facility] with Uwokrihaekxg4840-06-74 08:50:00* Test Item Value Reference Range Interpretation Comme nts WBC (test code = 6690-2) See_Comment H [Automated messa ge] The system which generated this result transmitted reference range: 4.30 - 11.10 10*3/?L. The reference range was not used to interpret this result as normal/abnormal. RBC (test code = 789-8) See_Comment [Automated [employer]] The system which generated this result [...] 34.0 g/dL 31.6-35.1 RDW-SD (test code = 56359-8) 42.6 fL 39-49.9 RDW-CV (test code = 788-0) 13.6 % 12-15.5 PLT (test code = 777-3) See_Comment H [Automated messa ge] The system which generated this result transmitted reference range: 166 - 358 10*3/?L. The reference range was not used to interpret this result as normal/abnormal. MPV (test code = 37421-5) 9.7 fL 9.5-12.9 NRBC/100 WBC (test code = 1744827537) See_Comment [Automated [employer] ssage] The system which generated this result transmitted reference range: 0.0 - 10.0 /100 WBCs. The reference range was not used to interpret this result as normal/abnormal. NRBC x10^3 (test code = 2750736301) <0.01 See_Comment [Automated messa ge] The system which generated this result transmitted reference range: 10*3/?L. The reference range was not used to interpret this result as normal/abnormal. GRAN MAT (NEUT) % (test code = 770-8) 49.7 % IMM GRAN % (test code = 8748732432) 0.50 % LYMPH % (test code = 736-9) 41.0 % MONO % (test code = 5905-5) 6.5 % EOS % (test code = 713-8) 1.9 % BASO % (test code = 706-2) 0.4 % GRAN MAT x10^3(ANC) (test code = 7385441348) 6.39 10*3/uL 1.88-7.09 IMM GRAN x10^3 (test code = 8878078480) 0.07 10*3/uL 0-0.06 H LYMPH x10^3 (test code = 731-0) 5.27 10*3/uL 1.32-3.29 H MONO x10^3 (test code = 742-7) 0.84 10*3/uL 0.33-0.92 EOS x10^3 (test code = 711-2) 0.24 10*3/uL 0.03-0.39 BASO x10^3 (test code = 704-7) 0.05 10*3/uL 0.01-0.07 Lab Interpretation (test code = 81574-4) [facility]normal [facility] CenterPOCT Tlxk1693-48-73 08:45:00* Test Item Value Reference Range Interpretation Comme nts POCT PREG (test code = 1605) neg On board controls acceptable with C Line (test code = 3574) yes POCT PREG LOT # (test code = 3575) [id number] POCT PREG TEST DATE ( test code = 3576) 04/06/2022 Lab Interpretation (test cod e = 50818-5) Normal [facility] CenterComplete Metabolic Rdliq8909-40-15 08:30:00* Test Item Value Reference Range Interpretation Comme nts NA (test code = 9265260525) 137 mmol/L 135-145 K (test code = 7080792511) 3.3 mmol/L 3.5-5 L CL (test code = 2663009126) 102 mmol/L 98-108 CO2 TOTAL (test code = 7578327659) 24 mmol/L 23-31 AGAP (test code = 0101905335) 2-16 BUN (test code = 9127083411) 9 mg/dL 7-23 GLUCOSE (test code = 1846251802) 116 mg/dL 70-110 H CREATININE (test code = 9881247339) 0.48 mg/dL 0.5-1.04 L TOTAL BILI (test code = 1492977959) 0.3 mg/dL 0.1-1.1 CALCIUM (test code = 0040963802) 9.4 mg/dL 8.6-10.6 T PROTEIN (test code = 1889208866) 7.0 g/dL 6.3-8.2 ALBUMIN (test code = 8023562452) 4.3 g/dL 3.5-5 ALK PHOS (test code = 5656539167) 127 U/L 34-122 H ALTv (test code = 1742-6) 87 U/L 5-35 H AST(SGOT) (test code = 7116422492) 34 U/L 13-40 eGFR Calculation (Non-) (test code = 3104902608) mL/min/1.73m2 eGFR Calculation () (test code = 3338462052) mL/min/1.73m2 DARWIN (test code = DARWIN) Association [...] imaging tests). Lab Interpretation (test code = 66059-8) Abnormal [facility] CenterLipase, [id number] 08:30:00* Test Item Value Reference Range Interpretation Comme nts LIPASE (test code = 9501391073) 297 U/L 0-220 H Lab Interpretation (test cod e = 97201-4) [facility]normal [facility] CenterURINALYSIS2021-02-07 19:25:00* Test Item Value Reference Range Interpretation Comme nts APPEARANCE (test code = 0237696970) Clear Clear COLOR (test code = 1653160913) Straw Yellow A PH (test code = 3771823921) 4.8-8.0 SP GRAVITY (test code = 7862938479) 1.003-1.030 GLU U QUAL (test code = 6337538552) Normal Normal BLOOD (test code = 0313288570) 1+ Negative A KETONES (test code = 6029410331) Negative Negative PROTEIN (test code = 2887-8) Negative Negative UROBILIN (test code = 9917119615) Normal Normal BILIRUBIN (test code = 3596703305) Negative Negative NITRITE (test code = 1980546893) Negative Negative LEUK MARC (test code = 9328759408) Negative Negative RBC/HPF (test code = 6514724123) See_Comment [Automated [employer]] The system which generated this result transmitted reference range: 0 - 3 HPF. The reference range was not used to interpret this result as normal/abnormal. WBC/HPF (test code = 0987951578) <1 See_Comment [Automated [employer]] The system which generated this result transmitted reference range: 0 - 5 HPF. The reference range was not used to interpret this result as normal/abnormal. BACTERIA (test code = 7465667941) Few Negative A MUCOUS (test code = 4140456926) Slight Negative LPF A SQ EPITH (test code = 2725031815) HPF Lab Interpretation (test code = 63176-4) Abnormal [facility] [id number] 19:09:00* Test Item Value Reference Range Interpretation Comme nts TROPONIN I (test code = 3597394181) <0.012 See_Comment [Automated message] The system which [...] biotin. ? Lab Interpretation (test code = 19484-0) [facility] CenterAD / C - DRUG SCREEN PGGGIT4752-87-14 19:09:00* Test Item Value Reference Range Interpretation Comme nts BENZO U (test code = 3342544110) Presumptive Positive Negative A ROSA U (test code = 0556030899) Negative Negative AMPHET (test code = 4589901671) Negative Negative THC (test code = 9097982049) Negative Negative METHADONE (test code = 4620318082) Negative Negative Meth U (test code = 4213776200) Negative Negative OPIATES (test code = 7840818604) Negative Negative Cocaine Metabolite (test code = 4646158741) Negative Negative PROPOXY (test code = 9664462009) Negative Negative Tric U (test code = 9490789471) Negative Negative PCP (test code = 6320788701) Negative Negative OXYCOD (test code = 3757865961) Negative Negative DARWIN (test code = DARWIN) [...] legal testing). Lab Interpretation (test code = 96895-3) Abnormal [facility]. METABOLIC PANEL (55285)2020-08-14 19:01:00* Test Item Value Reference Range Interpretation Comme nts NA (test code = 3470394966) 138 mmol/L 135-145 K (test code = 3721183060) 4.5 mmol/L 3.5-5 CL (test code = 0878898907) 106 mmol/L 98-108 CO2 TOTAL (test code = 3462710652) 21 mmol/L 23-31 L AGAP (test code = 8255464032) 2-16 BUN (test code = 5742904804) 13 mg/dL 7-23 GLUCOSE (test code = 0549057162) 97 mg/dL 70-110 CREATININE (test code = 7338265102) 0.48 mg/dL 0.5-1.04 L TOTAL BILI (test code = 1528871327) 0.4 mg/dL 0.1-1.1 CALCIUM (test code = 6005114050) 9.1 mg/dL 8.6-10.6 T PROTEIN (test code = 9197072481) 7.5 g/dL 6.3-8.2 ALBUMIN (test code = 7702033462) 4.3 g/dL 3.5-5 ALK PHOS (test code = 8179929636) 62 U/L 34-122 ALTv (test code = 1742-6) 19 U/L 5-35 AST(SGOT) (test code = 4891924044) 26 U/L 13-40 eGFR Calculation (Non-) (test code = 7952552828) mL/min/1.73m2 eGFR Calculation () (test code = 4455784605) mL/min/1.73m2 DARWIN (test code = DARWIN) Association [...] imaging tests). Lab Interpretation (test code = 54680-5) [facility]normal [facility] CenterLIPASE2021-02-07 19:01:00* Test Item Value Reference Range Interpretation Comme nts LIPASE (test code = 1033908587) 76 U/L 0-220 Lab Interpretation (test cod e = 25111-1) Normal [facility] WITH [id number] 18:47:00* Test Item Value Reference Range Interpretation Comme nts WBC (test code = 6690-2) See_Comment H [Automated [employer]] The system which generated this result transmitted reference range: 4.30 - 11.10 10*3/?L. The reference range was not used to interpret this result as normal/abnormal. RBC (test code = 789-8) See_Comment [Automated [employer]] The system which generated this result transmitted [...] 34.3 g/dL 31.6-35.1 RDW-SD (test code = 07763-9) 42.0 fL 39-49.9 RDW-CV (test code = 788-0) 13.4 % 12-15.5 PLT (test code = 777-3) See_Comment [Automated messa ge] The system which generated this result transmitted reference range: 166 - 358 10*3/?L. The reference range was not used to interpret this result as normal/abnormal. MPV (test code = 79073-4) 9.9 fL 9.5-12.9 NRBC/100 WBC (test code = 4417603159) See_Comment [Automated [employer]] The system which generated this result transmitted reference range: 0.0 - 10.0 /100 WBCs. The reference range was not used to interpret this result as normal/abnormal. NRBC x10^3 (test code = 3409171482) <0.01 See_Comment [Automated messa ge] The system which generated this result transmitted reference range: 10*3/?L. The reference range was not used to interpret this result as normal/abnormal. GRAN MAT (NEUT) % (test code = 770-8) 60.1 % IMM GRAN % (test code = 4241826034) 0.40 % LYMPH % (test code = 736-9) 31.3 % MONO % (test code = 5905-5) 6.0 % EOS % (test code = 713-8) 1.9 % BASO % (test code = 706-2) 0.3 % GRAN MAT x10^3(ANC) (test code = 9927477014) 6.96 10*3/uL 1.88-7.09 IMM GRAN x10^3 (test code = 8698797761) 0.05 10*3/uL 0-0.06 LYMPH x10^3 (test code = 731-0) 3.62 10*3/uL 1.32-3.29 H MONO x10^3 (test code = 742-7) 0.69 10*3/uL 0.33-0.92 EOS x10^3 (test code = 711-2) 0.22 10*3/uL 0.03-0.39 BASO x10^3 (test code = 704-7) 0.04 10*3/uL 0.01-0.07 Lab Interpretation (test code = 08174-0) [facility]normal [facility]XR CHEST 1 [id number] 18:17:08No acute cardiopulmonary abnormality. Preliminary Report Dictated [...] theabove report.[facility] CenterLactic Acid Whole Qdzow3195-86-24 18:11:00* Test Item Value Reference Range Interpretation Comme nts LACTIC ACID (test code = 8442637021) 1.95 mmol/L 0.5-2.2 Lab Interpretation (test cod e = 23014-1) Normal [facility] CenterCT ABDOMEN PELVIS WO [id number] 05:45:24No acute abdominopelvic abnormality. No urolithiasis. 2.5 [...] and agree with the abovereport.[facility] CenterPONE [id number] 03:10:00* Test Item Value Reference Range Interpretation Comme [facility] POCT PREG (test code = 1605) Negative On board controls acceptable with C Line (test code = 3574) Present POCT PREG LOT # (test code = 3575) [id number] POCT PREG TEST DATE ( test code = 3576) 03/07/2022 Lab Interpretation (test cod e = 94725-3) Normal [facility] with Lxylqmupmgnm1212-77-43 03:05:00* Test Item Value Reference Range Interpretation [...] 34.7 g/dL 31.6-35.1 RDW-SD (test code = 86131-9) 42.0 fL 39-49.9 RDW-CV (test code = 788-0) 13.5 % 12-15.5 PLT (test code = 777-3) See_Comment [Automated message] The system which generated this result transmitted reference range: 166 - 358 10*3/?L. The reference range was not used to interpret this result as normal/abnormal. MPV (test code = 31425-2) 9.8 fL 9.5-12.9 NRBC/100 WBC (test code = 1887544341) See_Comment [Automated message] The system which generated this result transmitted reference range: 0.0 - 10.0 /100 WBCs. The reference range was not used to interpret this result as normal/abnormal. NRBC x10^3 (test code = 4433400217) <0.01 See_Comment [Automated message] The system which generated this result transmitted reference range: 10*3/?L. The reference range was not used to interpret this result as normal/abnormal. GRAN MAT (NEUT) % (test code = 770-8) 66.2 % IMM GRAN % (test code = 6941623234) 0.60 % LYMPH % (test code = 736-9) 25.4 % MONO % (test code = 5905-5) 5.6 % EOS % (test code = 713-8) 1.9 % BASO % (test code = 706-2) 0.3 % GRAN MAT x10^3(ANC) (test code = 1761295720) 10.64 10*3/uL 1.88-7.09 H IMM GRAN x10^3 (test code = 2224788513) 0.09 10*3/uL 0-0.06 H LYMPH x10^3 (test code = 731-0) 4.09 10*3/uL 1.32-3.29 H MONO x10^3 (test code = 742-7) 0.90 10*3/uL 0.33-0.92 EOS x10^3 (test code = 711-2) 0.31 10*3/uL 0.03-0.39 BASO x10^3 (test code = 704-7) 0.05 10*3/uL 0.01-0.07 Lab Interpretation (test code = 64526-2) [facility]normal [facility] CenterUrinalysis2021-02-04 02:56:00* Test Item Value Reference Range Interpretation Comme nts APPEARANCE (test code = 0448100720) Hazy Clear A COLOR (test code = 1994302071) Yellow Yellow PH (test code = 3396756033) 4.8-8.0 SP GRAVITY (test code = 5233528728) 1.003-1.030 GLU U QUAL (test code = 3915978757) Normal Normal BLOOD (test code = 9247472287) Negative Negative KETONES (test code = 3210817251) Negative Negative PROTEIN (test code = 2887-8) Negative Negative UROBILIN (test code = 8425057347) Normal Normal BILIRUBIN (test code = 6585085587) Negative Negative NITRITE (test code = 3899270694) Negative Negative LEUK MARC (test code = 0571440954) Negative Negative RBC/HPF (test code = 4183852923) See_Comment [[employer]ated [employer]] The system which generated this result transmitted reference range: 0 - 3 HPF. The reference range was not used to interpret this result as normal/abnormal. WBC/HPF (test code = 5912514508) See_Comment [Automated [employer]] The system which generated this result transmitted reference range: 0 - 5 HPF. The reference range was not used to interpret this result as normal/abnormal. BACTERIA (test code = 7755221314) Few Negative A MUCOUS (test code = 2765885973) Slight Negative LPF A SQ EPITH (test code = 7146475084) HPF YEAST BUD (test code = 0300625184) See_Comment H [[employer]ated [employer]] The system which generated this result transmitted reference range: <=1 HPF. The reference range was not used to interpret this result as normal/abnormal. Lab Interpretation (test code = 24510-4) Abnormal [facility] CenterTroponin [id number] 02:24:00* Test Item Value Reference Range Interpretation Comme nts TROPONIN I (test code = 7924136267) <0.012 See_Comment [Automated message] The system which [...] biotin. ? Lab Interpretation (test code = 05022-9) Normal [facility] CenterCOVID[facility]19 (ID NOW RAPID TESTING)2020-08-11 02:15:00* Test Item Value Reference Range Interpretation Comme nts SARS-CoV-2 Rapid ID NOW (test code = 69760-3) Not Detected Not Detected DARWIN (test code = DARWIN) ID NOW COVID-19 As say is an isothermal nucleic acid amplification test intended for the qualitative detection of nucleic acid from SARS-CoV-2 viral RNA in nasopharyngeal ([employer]) specimens. It is used under Emergency Use [...] clinically indicated. Lab Interpretation (test code = 59769-8) Normal [facility] Metabolic Panel (NA, K, CL, CO2, GLUCOSE, BUN, CREATININE, CA)2020-08-11 02:13:00* Test Item Value Reference Range Interpretation Comme nts NA (test code = 8979116904) 137 mmol/L 135-145 K (test code = 9011003226) 4.0 mmol/L 3.5-5 CL (test code = 1124845709) 107 mmol/L 98-108 CO2 TOTAL (test code = 3858462507) 19 mmol/L 23-31 L AGAP (test code = 7156253141) 2-16 BUN (test code = 5526888525) 10 mg/dL 7-23 GLUCOSE (test code = 6626015776) 106 mg/dL 70-110 CREATININE (test code = 9034851891) 0.47 mg/dL 0.5-1.04 L CALCIUM (test code = 6334001146) 9.2 mg/dL 8.6-10.6 eGFR Calculation (Non-) (test code = 2218835039) mL/min/1.73m2 eGFR Calculation () (test code = 0029417037) mL/min/1.73m2 DARWIN (test code = DARWIN) Association [...] imaging tests). Lab Interpretation (test code = 93726-9) Abnormal [facility] CenterHepatic Function Panel (ALB, T.PRO, BILI T, BU/BC, ALT, AST, ALK PHOS)2020-08-11 02:13:00* Test Item Value Reference Range Interpretation Comme nts TOTAL BILI (test code = 3225452200) 0.4 mg/dL 0.1-1.1 BILI UNCON (test code = 1488406578) 0.3 mg/dL 0.1-1.1 BILI CONJ (test code = 2494416273) 0.0 mg/dL 0-0.3 T PROTEIN (test code = 0454561650) 7.5 g/dL 6.3-8.2 ALBUMIN (test code = 6136298198) 4.4 g/dL 3.5-5 ALK PHOS (test code = 1046488347) 48 U/L 34-122 ALTv (test code = 1742-6) 12 U/L 5-35 AST(SGOT) (test code = 8716305506) 22 U/L 13-40 Lab Interpretation (test cod e = 72952-3) Normal [facility] CenterLipase Drwzp8127-64-81 02:13:00* Test Item Value Reference Range Interpretation Comme nts LIPASE (test code = 2073940383) 78 U/L 0-220 Lab Interpretation (test cod e = 83206-2) Normal [facility] CenterLactic Acid Whole Vsgck5711-44-09 02:05:00* Test Item Value Reference Range Interpretation Comme nts LACTIC ACID (test code = 2387102248) 1.47 mmol/L 0.5-2.2 Lab Interpretation (test cod e = 70561-7) [facility]XR FOREARM 2 VW IZUO5989-47-18 14:31:40No acute bony abnormality. Soft tissue swelling. [...] SARS-CoV-2 Rapid ID NOW (test code = 55491-0) Not Detected Not Detected DARWIN (test code = DARWIN) ID NOW COVID-19 As say is an isothermal nucleic acid amplification test intended for the qualitative detection of nucleic acid from SARS-CoV-2 viral RNA in nasopharyngeal ([employer]) specimens. It is used under Emergency Use [...] clinically indicated. Lab Interpretation (test code = 95634-7) [facility] [id number] 02:54:00* Test Item Value Reference Range Interpretation Comme nts TROPONIN I (test code = 9236103828) <0.012 See_Comment [Automated message] The system which [...] biotin. ? Lab Interpretation (test code = 37765-1) [facility] 02:37:00* Test Item Value Reference Range Interpretation Comme nts LIPASE (test code = 1314902742) 76 U/L 0-220 Lab Interpretation (test cod e = 01101-7) [facility]2020-[facility]-25 01:54:00* Test Item Value Reference Range Interpretation Comme nts APPEARANCE (test code = 4336169331) Clear Clear COLOR (test code = 8943090492) Straw Yellow A PH (test code = 4934163466) 4.8-8.0 SP GRAVITY (test code = 1266150896) 1.003-1.030 GLU U QUAL (test code = 3448775666) Normal Normal BLOOD (test code = 6035879799) 3+ Negative A KETONES (test code = 5305145009) Negative Negative PROTEIN (test code = 2887-8) Negative Negative UROBILIN (test code = 5077480753) Normal Normal BILIRUBIN (test code = 3663547711) Negative Negative NITRITE (test code = 9612587182) Negative Negative LEUK MARC (test code = 8620052420) Negative Negative RBC/HPF (test code = 1943493942) See_Comment [Automated [employer]] The system which generated this result transmitted reference range: 0 - 3 HPF. The reference range was not used to interpret this result as normal/abnormal. WBC/HPF (test code = 6035969134) <1 See_Comment [Automated [employer]] The system which generated this result transmitted reference range: 0 - 5 HPF. The reference range was not used to interpret this result as normal/abnormal. BACTERIA (test code = 6754527706) Few Negative A MUCOUS (test code = 1864646807) Slight Negative LPF A SQ EPITH (test code = 5219989481) HPF Lab Interpretation (test code = 09490-3) Abnormal [facility] WITH [id number] 00:57:00* Test Item Value Reference Range Interpretation Comme nts WBC (test code = 6690-2) See_Comment [Automated [employer]] The system which generated this result transmitted reference range: 4.30 - 11.10 10*3/?L. The reference range was not used to interpret this result as normal/abnormal. RBC (test code = 789-8) See_Comment [Automated [employer]] The system which generated this result [...] 34.0 g/dL 31.6-35.1 RDW-SD (test code = 49939-0) 41.7 fL 39-49.9 RDW-CV (test code = 788-0) 13.2 % 12-15.5 PLT (test code = 777-3) See_Comment [Automated messa ge] The system which generated this result transmitted reference range: 166 - 358 10*3/?L. The reference range was not used to interpret this result as normal/abnormal. MPV (test code = 87508-4) 9.4 fL 9.5-12.9 L NRBC/100 WBC (test code = 8604669257) See_Comment [Automated [employer] ssage] The system which generated this result transmitted reference range: 0.0 - 10.0 /100 WBCs. The reference range was not used to interpret this result as normal/abnormal. NRBC x10^3 (test code = 0844413749) <0.01 See_Comment [Automated messa ge] The system which generated this result transmitted reference range: 10*3/?L. The reference range was not used to interpret this result as normal/abnormal. GRAN MAT (NEUT) % (test code = 770-8) 51.8 % IMM GRAN % (test code = 3734397157) 0.50 % LYMPH % (test code = 736-9) 40.7 % MONO % (test code = 5905-5) 4.0 % EOS % (test code = 713-8) 2.5 % BASO % (test code = 706-2) 0.5 % GRAN MAT x10^3(ANC) (test code = 9699710480) 5.38 10*3/uL 1.88-7.09 IMM GRAN x10^3 (test code = 4503031269) 0.05 10*3/uL 0-0.06 LYMPH x10^3 (test code = 731-0) 4.22 10*3/uL 1.32-3.29 H MONO x10^3 (test code = 742-7) 0.42 10*3/uL 0.33-0.92 EOS x10^3 (test code = 711-2) 0.26 10*3/uL 0.03-0.39 BASO x10^3 (test code = 704-7) 0.05 10*3/uL 0.01-0.07 Lab Interpretation (test code = 24695-9) [facility]normal [facility]ADC[facility]CLC OR [facility] ONLY - INFLUENZA A & B DIRECT [id number] 00:51:00* Test Item Value Reference Range Interpretation Comme nts Influenza A (test code = 29668-7) Negative Negative Influenza B (test code = 74254-3) Negative Negative Lab Interpretation (test cod e = 73016-2) Normal [facility] CenterPOCT [id number] 00:51:00* Test Item Value Reference Range Interpretation Comme nts POCT PREG (test code = 1605) negative On board controls acceptable with C Line (test code = 3574) present POCT PREG LOT # (test code = 3575) [id number] POCT PREG TEST DATE ( test code = 3576) 11/04/2021 Lab Interpretation (test cod e = 67273-1) [facility] CenterTROPONIN [id number] 00:46:00* Test Item Value Reference Range Interpretation Comme nts TROPONIN I (test code = 0767869393) <0.012 See_Comment [Automated message] The system which [...] biotin. ? Lab Interpretation (test code = 12402-8) Normal [facility] METABOLIC PANEL (NA, K, CL, CO2, GLUCOSE, BUN, CREATININE, CA)2020-07-01 00:46:00* Test Item Value Reference Range Interpretation Comme nts NA (test code = 5307371881) 141 mmol/L 135-145 K (test code = 2658711561) 3.8 mmol/L 3.5-5 CL (test code = 7087755455) 108 mmol/L 98-108 CO2 TOTAL (test code = 9751783341) 25 mmol/L 23-31 AGAP (test code = 9950457393) 2-16 BUN (test code = 1670267771) 10 mg/dL 7-23 GLUCOSE (test code = 3315035235) 92 mg/dL 70-110 CREATININE (test code = 5746438817) 0.58 mg/dL 0.5-1.04 CALCIUM (test code = 8811671795) 9.4 mg/dL 8.6-10.6 eGFR Calculation (Non-) (test code = 8684719366) mL/min/1.73m2 eGFR Calculation () (test code = 2655850609) mL/min/1.73m2 DARWIN (test code = DARWIN) Association [...] in imaging tests). [facility] CenterN-TERMINAL [id number]-[id number] 00:43:00* Test Item Value Reference Range Interpretation Comme nts NT-proBNP (test code = 0889917270) 332 pg/mL See_Comment H [Automated message] The system which generated this result transmitted reference range: <=125. The reference range was not used to interpret this result as normal/abnormal. DARWIN (test code = DARWIN) Biotin has been reported to cause a negative bias, interpret results relative to patient's use of biotin. Lab Interpretation (test code = 96078-5) [facility]normal [facility] CenterXR CHEST 1 [id number] 00:20:50No acute cardiopulmonary abnormality Preliminary Report Dictated [...] reviewed this study and agree with the abovereport.[facility] CERVICAL SPINE WO [id number] 23:23:[address] EXAMINATION: CT [...] apices are unremarkable. [facility], Radiant Results Inft 06/28/2020 5:24 PM CSTEXAMINATION: CT CERVICAL SPINE WO [...] unremarkable. IMPRESSIONUnremarkable cervical spine CT.[facility] CenterPONE Zcpl1298-32-56 01:50:00* Test Item Value Reference Range Interpretation Comme nts POCT PREG (test code = 1605) Negative On board controls acceptable with C Line (test code = 3574) Present POCT PREG LOT # (test code = 3575) [id number] POCT PREG TEST DATE ( test code = 3576) 10/05/2021 Lab Interpretation (test cod e = 23186-5) Normal [facility] CenterTroponin [id number] 01:24:00* Test Item Value Reference Range Interpretation Comme nts TROPONIN I (test code = 5444348061) <0.012 See_Comment [Automated message] The system which [...] biotin. ? Lab Interpretation (test code = 15747-3) Normal [facility] CenterCOVID[facility] (ID NOW RAPID TESTING)2020-06-13 01:22:00* Test Item Value Reference Range Interpretation Comme nts SARS-CoV-2 Rapid ID NOW (test code = 91675-8) Not Detected Not Detected DARWIN (test code = DARWIN) ID NOW COVID-19 As say is an isothermal nucleic acid amplification test intended for the qualitative detection of nucleic acid from SARS-CoV-2 viral RNA in nasopharyngeal ([employer]) specimens. It is used under Emergency Use [...] clinically indicated. Lab Interpretation (test code = 92025-7) Normal [facility] CenterD-[id number] 01:16:00* Test Item Value Reference Range Interpretation Comments D-DIMER (test code = 1011509104) See_Comment [Automated message] The system which generated [...] a diagnosis. Lab Interpretation (test code = 56660-5) Normal [facility] CenterBasi Metabolic Panel (NA, K, CL, CO2, GLUCOSE, BUN, CREATININE, CA)2020-06-13 01:13:00* Test Item Value Reference Range Interpretation Comme nts NA (test code = 0529245864) 137 mmol/L 135-145 K (test code = 0621481246) 4.2 mmol/L 3.5-5 CL (test code = 8653055085) 103 mmol/L 98-108 CO2 TOTAL (test code = 2327068846) 25 mmol/L 23-31 AGAP (test code = 7801468496) 2-16 BUN (test code = 6660877720) 11 mg/dL 7-23 GLUCOSE (test code = 1068991370) 98 mg/dL 70-110 CREATININE (test code = 3869078731) 0.52 mg/dL 0.5-1.04 CALCIUM (test code = 3422030478) 10.3 mg/dL 8.6-10.6 eGFR Calculation (Non-) (test code = 0283539650) mL/min/1.73m2 eGFR Calculation () (test code = 3379596446) mL/min/1.73m2 DARWIN (test code = DARWIN) Association [...] Comme nts TOTAL BILI (test code = 9888528866) 0.5 mg/dL 0.1-1.1 BILI UNCON (test code = 2047040013) 0.3 mg/dL 0.1-1.1 BILI CONJ (test code = 2246818437) 0.0 mg/dL 0-0.3 T PROTEIN (test code = 5913614873) 7.3 g/dL 6.3-8.2 ALBUMIN (test code = 2859255747) 4.2 g/dL 3.5-5 ALK PHOS (test code = 6099593886) 85 U/L 34-122 ALTv (test code = 1742-6) 66 U/L 5-35 H AST(SGOT) (test code = 7179302524) 32 U/L 13-40 Lab Interpretation (test cod e = 48555-2) Abnormal [facility] CenterLipase Ictwm1943-21-08 01:13:00* Test Item Value Reference Range Interpretation Comme nts LIPASE (test code = 1269159121) 60 U/L 0-220 Lab Interpretation (test cod e = 99439-2) Normal [facility] CenterUrinalysis2020-12-07 01:03:00* Test Item Value Reference Range Interpretation Comme nts APPEARANCE (test code = 0738783483) Clear Clear COLOR (test code = 6201659422) Straw Yellow A PH (test code = 0125909436) 4.8-8.0 SP GRAVITY (test code = 5304443816) 1.003-1.030 GLU U QUAL (test code = 2393249987) Normal Normal BLOOD (test code = 5963398358) Negative Negative KETONES (test code = 6750377539) Negative Negative PROTEIN (test code = 2887-8) Negative Negative UROBILIN (test code = 1090804170) Normal Normal BILIRUBIN (test code = 7607176078) Negative Negative NITRITE (test code = 6112620414) Negative Negative LEUK MARC (test code = 2477459758) Negative Negative RBC/HPF (test code = 2855192996) See_Comment [Automated [employer]] The system which generated this result transmitted reference range: 0 - 3 HPF. The reference range was not used to interpret this result as normal/abnormal. WBC/HPF (test code = 0406468489) See_Comment [Automated [employer]] The system which generated this result transmitted reference range: 0 - 5 HPF. The reference range was not used to interpret this result as normal/abnormal. BACTERIA (test code = 8116408857) Negative Negative MUCOUS (test code = 5963481345) Slight Negative LPF A SQ EPITH (test code = 8085999723) HPF Lab Interpretation (test code = 36509-9) Abnormal [facility] with Tcvkkqjdqgkk9863-84-15 00:55:00* Test Item Value Reference Range Interpretation [...] 34.5 g/dL 31.6-35.1 RDW-SD (test code = 62790-6) 42.5 fL 39-49.9 RDW-CV (test code = 788-0) 13.5 % 12-15.5 PLT (test code = 777-3) See_Comment [Automated messa ge] The system which generated this result transmitted reference range: 166 - 358 10*3/?L. The reference range was not used to interpret this result as normal/abnormal. MPV (test code = 53527-8) 10.1 fL 9.5-12.9 NRBC/100 WBC (test code = 6218109821) See_Comment [Automated [employer] ssage] The system which generated this result transmitted reference range: 0.0 - 10.0 /100 WBCs. The reference range was not used to interpret this result as normal/abnormal. NRBC x10^3 (test code = 5063921726) <0.01 See_Comment [Automated messa ge] The system which generated this result transmitted reference range: 10*3/?L. The reference range was not used to interpret this result as normal/abnormal. GRAN MAT (NEUT) % (test code = 770-8) 61.9 % IMM GRAN % (test code = 5969321448) 0.60 % LYMPH % (test code = 736-9) 30.6 % MONO % (test code = 5905-5) 5.2 % EOS % (test code = 713-8) 1.4 % BASO % (test code = 706-2) 0.3 % GRAN MAT x10^3(ANC) (test code = 2189876689) 8.03 10*3/uL 1.88-7.09 H IMM GRAN x10^3 (test code = 6894186011) 0.08 10*3/uL 0-0.06 H LYMPH x10^3 (test code = 731-0) 3.97 10*3/uL 1.32-3.29 H MONO x10^3 (test code = 742-7) 0.68 10*3/uL 0.33-0.92 EOS x10^3 (test code = 711-2) 0.18 10*3/uL 0.03-0.39 BASO x10^3 (test code = 704-7) 0.04 10*3/uL 0.01-0.07 Lab Interpretation (test code = 95623-3) [facility]normal [facility] CenterCOVID[facility] (ID NOW RAPID TESTING)2020-05-17 00:27:00* Test Item Value Reference Range Interpretation Comme nts SARS-CoV-2 Rapid ID NOW (test code = 67383-4) Not Detected Not Detected DARWIN (test code = DARWIN) ID NOW COVID-19 As say is an isothermal nucleic acid amplification test intended for the qualitative detection of nucleic acid from SARS-CoV-2 viral RNA in nasopharyngeal ([employer]) specimens. It is used under Emergency Use [...] clinically indicated. Lab Interpretation (test code = 86134-1) Normal [facility] Metabolic Panel (NA, K, CL, CO2, GLUCOSE, BUN, CREATININE, CA)2020-05-17 00:00:00* Test Item Value Reference Range Interpretation Comme nts NA (test code = 4349309886) 136 mmol/L 135-145 K (test code = 4044245412) 3.6 mmol/L 3.5-5 CL (test code = 2970995391) 103 mmol/L 98-108 CO2 TOTAL (test code = 9687670274) 26 mmol/L 23-31 AGAP (test code = 1917223406) 2-16 BUN (test code = 2668493004) 13 mg/dL 7-23 GLUCOSE (test code = 4184057254) 130 mg/dL 70-110 H CREATININE (test code = 3052208857) 0.58 mg/dL 0.5-1.04 CALCIUM (test code = 7331658667) 9.9 mg/dL 8.6-10.6 eGFR Calculation (Non-) (test code = 2984429229) mL/min/1.73m2 eGFR Calculation () (test code = 0860874286) mL/min/1.73m2 DARWIN (test code = DARWIN) Association [...] imaging tests). Lab Interpretation (test code = 64772-3) Abnormal [facility] CenterHepatic Function Panel (ALB, T.PRO, BILI T, BU/BC, ALT, AST, ALK PHOS)2020-05-17 00:00:00* Test Item Value Reference Range Interpretation Comme nts TOTAL BILI (test code = 2353418535) 0.4 mg/dL 0.1-1.1 BILI UNCON (test code = 2204212830) 0.3 mg/dL 0.1-1.1 BILI CONJ (test code = 6330077473) 0.0 mg/dL 0-0.3 T PROTEIN (test code = 7749796815) 7.3 g/dL 6.3-8.2 ALBUMIN (test code = 3857282536) 4.3 g/dL 3.5-5 ALK PHOS (test code = 2874395833) 118 U/L 34-122 ALTv (test code = 1742-6) 119 U/L 5-35 H AST(SGOT) (test code = 6887578691) 47 U/L 13-40 H Lab Interpretation (test cod e = 52545-5) Abnormal [facility] CenterLipase Jboqe4077-34-17 00:00:00* Test Item Value Reference Range Interpretation Comme nts LIPASE (test code = 5609974262) 70 U/L 0-220 Lab Interpretation (test cod e = 99452-7) Normal [facility] CenterCBC with Hdhkbymtjyuj4743-22-41 23:49:00* Test Item Value Reference Range Interpretation Comme nts WBC (test code = 6690-2) See_Comment [Automated [employer]] The system which generated this result transmitted reference range: 4.30 - 11.10 10*3/?L. The reference range was not used to interpret this result as normal/abnormal. RBC (test code = 789-8) See_Comment [Automated [employer]] The system which generated this result [...] 33.3 g/dL 31.6-35.1 RDW-SD (test code = 68032-3) 42.8 fL 39-49.9 RDW-CV (test code = 788-0) 13.5 % 12-15.5 PLT (test code = 777-3) See_Comment [Automated [employer]] The system which generated this result transmitted reference range: 166 - 358 10*3/?L. The reference range was not used to interpret this result as normal/abnormal. MPV (test code = 81369-4) 9.8 fL 9.5-12.9 NRBC/100 WBC (test code = 2838391447) See_Comment [Automated me ssage] The system which generated this result transmitted reference range: 0.0 - 10.0 /100 WBCs. The reference range was not used to interpret this result as normal/abnormal. NRBC x10^3 (test code = 8901773149) <0.01 See_Comment [Automated me ssage] The system which generated this result transmitted reference range: 10*3/?L. The reference range was not used to interpret this result as normal/abnormal. GRAN MAT (NEUT) % (test code = 770-8) 62.5 % IMM GRAN % (test code = 4179302107) 0.50 % LYMPH % (test code = 736-9) 29.8 % MONO % (test code = 5905-5) 5.6 % EOS % (test code = 713-8) 1.1 % BASO % (test code = 706-2) 0.5 % GRAN MAT x10^3(ANC) (test code = 4760370802) 6.65 10*3/uL 1.88-7.09 IMM GRAN x10^3 (test code = 0524589369) 0.05 10*3/uL 0-0.06 LYMPH x10^3 (test code = 731-0) 3.17 10*3/uL 1.32-3.29 MONO x10^3 (test code = 742-7) 0.59 10*3/uL 0.33-0.92 EOS x10^3 (test code = 711-2) 0.12 10*3/uL 0.03-0.39 BASO x10^3 (test code = 704-7) 0.05 10*3/uL 0.01-0.07 [facility] CenterACETAMINOPHEN2020-11-08 08:24:00* Test Item Value Reference Range Interpretation Comme nts ACETAMINOP (test code = 3542494218) 21.0 ug/mL 10-30 DARWIN (test code = DARWIN) Toxic: Greater joan n 200 ug/mL @ 4 hour post ingestion or greater than 50 ug/mL @ 12 hour post ingestion Lab Interpretation (test code = 26061-9) Normal [facility] CenterETHANOL2020-11-08 06:37:00* Test Item Value Reference Range Interpretation Comme nts ALCOHOL (test code = 9432486147) <10 mg/dL DARWIN (test code = DARWIN) <10 Aqioscan46-097 Toxic>100 Depression of EVP HEAD OF [employer]>400 Fatalities Reported [facility] CenterBasi Metabolic Panel (NA, K, CL, CO2, GLUCOSE, BUN, CREATININE, CA)2020-05-15 06:35:00* Test Item Value Reference Range Interpretation Comme nts NA (test code = 4098031705) 137 mmol/L 135-145 K (test code = 8381484545) 4.0 mmol/L 3.5-5 CL (test code = 5662540824) 106 mmol/L 98-108 CO2 TOTAL (test code = 7312785687) 25 mmol/L 23-31 AGAP (test code = 7514782398) 2-16 BUN (test code = 3427697121) 9 mg/dL 7-23 GLUCOSE (test code = 8586984316) 95 mg/dL 70-110 CREATININE (test code = 8356232247) 0.53 mg/dL 0.5-1.04 CALCIUM (test code = 8223125329) 9.0 mg/dL 8.6-10.6 eGFR Calculation (Non-) (test code = 4961846877) mL/min/1.73m2 eGFR Calculation () (test code = 9444431344) mL/min/1.73m2 DARWIN (test code = DARWIN) Association [...] Comme nts TOTAL BILI (test code = 2372656266) 0.4 mg/dL 0.1-1.1 BILI UNCON (test code = 7069085897) 0.2 mg/dL 0.1-1.1 BILI CONJ (test code = 5177142401) 0.0 mg/dL 0-0.3 T PROTEIN (test code = 0615946332) 6.3 g/dL 6.3-8.2 ALBUMIN (test code = 1880368654) 3.8 g/dL 3.5-5 ALK PHOS (test code = 8969579315) 117 U/L 34-122 ALTv (test code = 1742-6) 179 U/L 5-35 H AST(SGOT) (test code = 9963963713) 194 U/L 13-40 H Lab Interpretation (test cod e = 10595-5) Abnormal [facility] CenterLipase Vcexz0663-76-97 06:35:00* Test Item Value Reference Range Interpretation Comme [facility] LIPASE (test code = 0463231899) 92 U/L 0-220 Lab Interpretation (test cod e = 46009-0) Normal [facility] CenteraPTT2020-11-08 06:22:00* Test Item Value Reference Range Interpretation Comme nts APTT Patient (test code = 3173-2) See_Comment [Automated message] The system which generated this result transmitted reference range: 23 - 38 Seconds. The reference range was not used to interpret this result as normal/abnormal. DARWIN (test code = DARWIN) The [facility] patient population mean normal value for aPTT is 30 seconds. Lab Interpretation (test code = 00265-0) Normal [facility] CenterUrinalysis2020-11-08 06:21:00* Test Item Value Reference Range Interpretation Comme nts APPEARANCE (test code = 9776974836) Clear Clear COLOR (test code = 3858780353) Yellow Yellow PH (test code = 4136154115) 4.8-8.0 SP GRAVITY (test code = 1332345561) 1.003-1.030 GLU U QUAL (test code = 3815348790) Normal Normal BLOOD (test code = 0564713167) Negative Negative KETONES (test code = 9227226132) Negative Negative PROTEIN (test code = 2887-8) Negative Negative UROBILIN (test code = 1138139303) Normal Normal BILIRUBIN (test code = 4063981495) Negative Negative NITRITE (test code = 6540076624) Negative Negative LEUK MARC (test code = 2600795040) Negative Negative RBC/HPF (test code = 3422239065) See_Comment [Automated messa ge] The system which generated this result transmitted reference range: 0 - 3 HPF. The reference range was not used to interpret this result as normal/abnormal. WBC/HPF (test code = 4661105792) <1 See_Comment [Automated messa ge] The system which generated this result transmitted reference range: 0 - 5 HPF. The reference range was not used to interpret this result as normal/abnormal. BACTERIA (test code = 0036490560) Negative Negative MUCOUS (test code = 2976198722) Slight Negative LPF A SQ EPITH (test code = 1624228401) HPF Lab Interpretation (test code = 39173-9) Abnormal [facility] CenterProthrombin Time (PT) / [id number] 06:20:00 * Test Item Value Reference Range Interpretation Comme nts PROTIME PATIENT (test code = 5964-2) See_Comment [Automated [employer]] The system which generated this result transmitted reference range: 12.0 - 14.7 Seconds. The reference range was not used to interpret this result as normal/abnormal. INR (test code = 6301-6) Normal INR <1.1; Warfarin Therapeutic range 2.0 to 3.0 or 2.5 to 3.5, depending upon the indications. Lab Interpretation (test code = 17736-4) Normal [facility] - DRUG SCREEN [id number] 06:19:00* Test Item Value Reference Range Interpretation Comme nts BENZO U (test code = 9616261990) Presumptive Positive Negative A ROSA U (test code = 4952783931) Negative Negative AMPHET (test code = 7634280773) Negative Negative THC (test code = 7047690802) Negative Negative METHADONE (test code = 5556963927) Negative Negative Meth U (test code = 7863090617) Negative Negative OPIATES (test code = 6756279312) Negative Negative Cocaine Metabolite (test code = 5992272878) Negative Negative PROPOXY (test code = 9277350486) Negative Negative Tric U (test code = 7632330932) Negative Negative PCP (test code = 2714889750) Negative Negative OXYCOD (test code = 6980735061) Negative Negative DARWIN (test code = DARWIN) [...] legal testing). Lab Interpretation (test code = 45666-1) Abnormal [facility] with Omwzlscyhlyg4410-25-34 06:07:00* Test Item Value Reference Range Interpretation Comme nts WBC (test code = 6690-2) See_Comment [Automated [employer]] The system which generated this result transmitted reference range: 4.30 - 11.10 10*3/?L. The reference range was not used to interpret this result as normal/abnormal. RBC (test code = 789-8) See_Comment [Automated [employer] The system which generated this result transmitted [...] 34.3 g/dL 31.6-35.1 RDW-SD (test code = 80608-9) 43.4 fL 39-49.9 RDW-CV (test code = 788-0) 13.7 % 12-15.5 PLT (test code = 777-3) See_Comment [Automated [employer]] The system which generated this result transmitted reference range: 166 - 358 10*3/?L. The reference range was not used to interpret this result as normal/abnormal. MPV (test code = 92691-4) 9.7 fL 9.5-12.9 NRBC/100 WBC (test code = 6758660915) See_Comment [Automated [employer] ssage] The system which generated this result transmitted reference range: 0.0 - 10.0 /100 WBCs. The reference range was not used to interpret this result as normal/abnormal. NRBC x10^3 (test code = 8920624470) <0.01 See_Comment [Automated [employer]] The system which generated this result transmitted reference range: 10*3/?L. The reference range was not used to interpret this result as normal/abnormal. GRAN MAT (NEUT) % (test code = 770-8) 50.6 % IMM GRAN % (test code = 9937196155) 0.20 % LYMPH % (test code = 736-9) 42.1 % MONO % (test code = 5905-5) 5.5 % EOS % (test code = 713-8) 1.2 % BASO % (test code = 706-2) 0.4 % GRAN MAT x10^3(ANC) (test code = 9474872685) 4.31 10*3/uL 1.88-7.09 IMM GRAN x10^3 (test code = 3343050640) <0.03 0-0.06 LYMPH x10^3 (test code = 731-0) 3.58 10*3/uL 1.32-3.29 H MONO x10^3 (test code = 742-7) 0.47 10*3/uL 0.33-0.92 EOS x10^3 (test code = 711-2) 0.10 10*3/uL 0.03-0.39 BASO x10^3 (test code = 704-7) 0.03 10*3/uL 0.01-0.07 Lab Interpretation (test code = 99650-9) [id number] Test Item Value Reference Range Interpretation Comme nts POCT PREG (test code = 1605) Negative On board controls acceptable with C Line (test code = 3574) Present POCT PREG LOT # (test code = 3575) HCG [id number] POCT PREG TEST DATE ( test code = 3576) 10/05/2021 Lab Interpretation (test cod e = 81237-0) Normal [facility] Consult Notes Date/Time Note Provider Source 2024-11-01 09:43:46 Associated Order(s): CONSULT CARDIOLOGY [facility] Cardiology Consult Note Patient: Charity Roca Date [...] palpitations at rest. No syncopal attacks. Primary outboard motor tester: Dr. Jerson MONTE dated 11/2023. Reports having [...] Problem Relation Age of Onset Heart Mother [place] in her 40s Heart Father [place] in his 60s SOCIAL HISTORY Social History [...] tablet 1 mg, 1 mg, Oral, BIDPRN, Mary Michelle MD, 1 mg at 11/01/24 0216 aspirin EC tablet 81 mg, 81 mg, Oral, DAILY, Mary Michelle MD, 81 mg at 11/01/24 0819 clopidogreL (PLAVIX) 75 mg tablet 75 mg, 75 mg, Oral, DAILY, Mary Michelle MD, 75 mg at 11/01/24 0819 famotidine (PEPCID AC) tablet 20 mg, 20 mg, Oral, BID, Mary Michelle MD, 20 mg at 11/01/24 0819 haloperidoL (HALDOL) tablet 2 mg, 2 mg, Oral, QHS, Mary Michelle MD hydralAZINE (APRESOLINE) injection 10 mg, 10 mg, Slow IV Push, Q4HPRN, Mary Michelle MD hydrOXYzine (ATARAX) tablet 50 mg, 50 mg, Oral, [id number], Mary Michelle MD isosorbide mononitrate (IMDUR) 24 hr tablet 60 mg, 60 mg, Oral, DAILY, Mary Michelle MD, 60 mg at 11/01/24 0819 lisinopriL (PRINIVIL,ZESTRIL) tablet 40 mg, 40 mg, Oral, DAILY, Mary Michelle MD, 40 mg at 11/01/24 0819 methocarbamoL (ROBAXIN) tablet 500 mg, 500 mg, Oral, Q6HPRN, Mary Michelle MD, 500 mg at 11/01/24 0819 rosuvastatin (CRESTOR) tablet 20 mg, 20 mg, Oral, QHS, Mary Michelle MD acetaminophen (TYLENOL) tablet 650 mg, 650 mg, Oral, Q6HPRN, Mary Michelle MD enoxaparin (LOVENOX) injection 40 mg, 40 mg, Subcutaneous, DAILY, Mary Michelle MD, 40 mg at 11/01/24 0818 ketorolac (TORADOL) injection 15 mg, 15 mg, Slow IV Push, Q6HPRN, Mary Michelle MD, 15 mg at 11/01/24 0927 ondansetron (ZOFRAN (PF)) injection 4 mg, 4 mg, Slow IV Push, Q6HPRN, Mary Michelle MD REVIEW OF SYSTEMS: Comprehensive 10-system review was conducted and were negative except for what's noted in the HPI. The following systems were reviewed: Constitutional, cardiovascular, respiratory, gastrointestinal, genitourinary, musculoskeletal, neurologic, psychiatric, endocrinological, and hematological. PHYSICAL EXAMINATION: Vitals: 11/01/24 0000 11/01/24 0041 11/01/24 0357 11/01/24 0817 BP: (!) 122/39 122/73 (!) 156/99 (!) 155/96 Pulse: 94 98 76 75 Resp: 13 19 Temp: 36.6 ?C (97.8 ?F) 36.5 [...] CAD Essential hypertension Coronary artery disease involving [place] coronary artery of [place] heart with angina pectoris Dyslipidemia Chest pain [...] Recent Labs 11/01/24 0217 HGBA1C 5.6 Primary outboard motor tester: Dr Healy Total Visit Time: 45 mins [...] Ordering referrals and/or communicating with other health child daycare worker (when not separately reported), Documenting clinical information in the electronic or other health record, and Independently interpreting results (not separately reported) and/or communicating results to the patient/family/caregiver. This report was dictated using [email or web address] and is subject to voice recognition errors. [...] feel free to call our office at [phone]. I would be happy to be of further assistance for Charity Roca wellbeing. Voice recognition software has been used to create portions of this document. An attempt to proofread has been made to minimize errors. Please do not hesitate to call with any questions. Natasha Hernandes MD 11/01/2024 9:43 AM Organ Recovery Coordinator, Division of Cardiology [facility] - Health History and Physical Notes Date/Time Note Provider Source 2024-11-26 21:52:18 [facility] Hospitalist Admission H&P Date of [...] catheterization done about 3-1/2 weeks ago at [place] and at that time patient did not [...] Problem Relation Age of Onset Heart Mother [place] in her 40s Heart Father [place] in his 60s SOCIAL HISTORY Social History [...] Impression No acute cardiopulmonary abnormality. HS:Y RL: 2977 End of Report. Findings of cardiac catheterization [...] user?: NO Patient will require observation [place] LINE was verified during stay Alexx Kwok MD [facility] 2024-11-03 12:52:39 Pre-Procedure Sedation Evaluation H&P from [...] completed and signed. Alec Antoine MD PGY-5, Truck Repair Service Estimator Pager: [phone] Cosigned by Dane Jurado MD at 11/03/2024 1:11 PM CDT Associated attestation - Dane Jurado MD - 11/03/2024 1:11 PM CDT I agree with the note as written Dane Jurado M.D. Interventional Cardiology Pager: [phone] INTERVENTIONAL CARDIOLOGY [facility] 2024-11-01 18:17:28 MCAWHITE Admit H&P PCP: Riddhi Montes Date of Service: 11/01/2024 CHIEF COMPLAINT: Chest pain HISTORY OF PRESENT ILLNESS Charity Roca is a 44 year old female with a PMH of morbid obesity, HTN, HLD, CAD s/p PCI (reported 10/06/2023, outpatient outboard motor tester is Dr. Arthur), prior pancreatitis, PTSD, depression and anxiety who presented as a transfer from [facility] for unstable angina. The patient [...] in BP. Cardiology consulted, recommended transfer to [facility] for invasive coronary angiography. Upon arrival to [facility], patient evaluated at bedside. Stated that [...] reflect atelectasis or infiltrate. RL: 781 AFC: 21241 11/01/2024 EKG with Sinus tachycardia, possible LA [...] Qtc 444 ms. Plan: - [facility] for [facility] LHC - C/w Heparin gtt - C/w ASA 81 mg QD, Plavix 75 mg QD - Increased Rosuvastatin to 40 mg QD - C/w Imdur 60 mg QD, consider increasing to 90 mg QD - NTG 0.4mg SL q5min prn angina - Morphine 2mg IV q4h prn angina - Telemetry, O2 per protocol, Electrolytes: K >4, Mg>2 - Patient's outpatient outboard motor tester is Dr. Arthur PTSD Depression Anxiety Patient [...] additional details. DOS 11/02/24 Rosario Virk MD, [facility] Organ Recovery Coordinator Division of Cardiovascular Medicine [facility] 2024-11-01 00:05:09 MEDICINE [facility] ADMIT H&P Date of Service: [...] protonix, ketorlac and it did not help. Magazine Grinder Loader: Dr. Arthur PAST MEDICAL HISTORY Past Medical History: Diagnosis Date Anxiety Hypertension PTSD (post-traumatic stress disorder) of family members. Past Surgical History: Procedure Laterality Date CHOLECYSTECTOMY TONSILLECTOMY Family History Problem Relation Age of Onset Heart Mother [place] in her 40s Heart Father [place] in his 60s ALLERGIES No Known Allergies [...] intervention for the workup and treatment of... [facility] 2023-02-16 01:18:50 Formatting of this n ote [...] acute, severe Comparison: September 11, 2021 RL: 45292 Ordering Clinician: LEEANNE WISE Technique: Axial CT [...] the ACR Incidental Findings Committee;Journal of the [place] [employer] Volume 7, Issue 10, Pages 992-998, April 2010). CHEST 1 VW Result Date: [...] process is identified in the chest. RL: 4747 END OF REPORT Assessment and plan: Principal [...] Flako Mercado MD 02/16/2023 IM-INTERNAL MEDICINE STAFF [facility] Procedure Notes Date/Time Note Provider Source 2024-11-03 14:54:32 Procedure(s): [place] CATH PLMT L HRT & ARTS W/NJX & ANGIO IMG S&I; [place] IV DOP EDILSON&/OR PRESS C/EVERETT RSRV JEFRY 1ST VSL; [place] IV DOP EDILSON&/OR PRESS C/EVERETT RSRV JEFRY ADDL VSL Pre-Procedure Diagnose(s): Coronary artery disease involving [place] coronary artery of [place] heart with unstable angina pectoris Post-Procedure Diagnose(s): Coronary artery disease involving [place] coronary artery of [place] heart with unstable angina pectoris Left Heart Cath/Coronary Angiography Charity Roca Date of Service: 11/03/2024 2:55 PM Attending Physician: Dane Jurado MD Fellow: Dr. Jones Referring Physician: Dr. Sandra Procedures Performed: LHC/Coronary Angiogram: CPT 58799 FFR of mLAD: CPT 73767 FFR of mRCA: CPT 33616 Indication/Diagnosis: ACS ([place]/NSTEMI) Consent: Risks, benefits, alternatives and complications of the procedure discussed with the patient, who understood and agreed to proceed. Aseptic technique: Chlorprep Local Anesthesia: 1% lidocaine without epinephrine Sedation: Moderate Access site: right femoral artery Closure Method: Angio-Seal Sterile dressing: yes Complications: none Procedures: After patient identification/verification, the patient was thereafter transferred to the denture laboratory technician table. The access site was prepped and [...] MD 11/03/2024 2:55 PM IM-INTERVENTIONAL CARDIOLOGY STAFF [facility] Notes <thead> Date/Time Note Provider Source 2025-01-07 15:08:22 Chief Complaint Patient presents with Follow-up Follow up for insomnia medication refills Mabrella Oh LVN [facility] 2024-12-15 22:30:00 No answer in lobby. Razia Yost RN [facility] 2024-12-15 22:16:00 Pt called by Erp no answer in lobby. [facility] 2024-12-15 21:01:27 Arrives to ED ambulatory. States she was here yesterday for same CC and was told to come back if new symptoms presented. Today she developed diarrhea and vomiting. Sates pain is still the same. Connie Rivera RN [facility] 2024-12-15 20:55:00 Called for pt in the lobby No response I therefore did not see or evaluate this pt MD Jose Ortiz Wakili S, MD 12/15/242216 [facility] 2024-12-14 16:49:16 Patient given discharge instructions, and verbalized no further concerns or questions. Skin p/w/d, rr equal and non labored. A&OX4. Ambulated independently with a steady gait in stable condition. Riddhi Su RN [facility] 2024-12-14 13:28:17 Abdominal pain after eating and drinking since last night. Also endorsing nausea. Denies chest pain, dysuria. HX: 1 stents, +Plavix, pancreatitis, PTSD, anxiety, depression. Tatianna Felipe RN [facility] [id number] 21:31:28 Thank you for choosing us for your medical care and it was a pleasure taking care of you. Your provider s name is nurse practitioner Cathy Alegria DNP, ROTOR COIL TAPER-. Follow up with your primary care provider in the next week if no improvement. Please return to the emergency department if your symptoms worsen and or any other emergency concerns. in addition to other medicat ion you may take Tylenol ES 2 every 6 hours as needed for pain Future Tests Future scheduled test information is unavailable Pending Tests Pending diagnostic test information is unavailable Future Visits Future appointment information is unavailable Referrals to Other Providers <thead> Reason for Referral Referral Start Date Provider Provider Contact Information Provider Address NO PHYSICIAN NO PHYSICIAN MONTSERRAT TERRAZAS MD Work Phone: [address] [address] AIDEN SOLANO MD Work Phone: [address] [place] [phone] ENTER NAME IN NOTES OTHER ENTER NAME IN NOTES OTHER ENTER NAME IN NOTES OTHER ENTER NAME IN NOTES OTHER Future Procedures <thead> Procedure Name Ordered Date Scheduled Date NPO except Meds April 10, 2024 4:54pm [...] 2024 4:51pm Cardiac, BP, Pulse Ox Monitor May 13, 2024 6:08pm May 13, 2024 6:07pm Insert Peripheral IV Access May 13, 2024 6 :08pm May 13, 2024 6:07pm Remove Clothing/Place in Gown May 13, 2024 6:08pm May 13, 2024 6:07pm 2L NC Oxygen Therapy May 13, 2024 6:08pm N ovember 2023 6:07pm VS - Adult May 13, 2024 6:08pm Novemb er 2023 6:07pm Electrocardiogram, Complete May 13, 2024 6 :08pm May 13, 2024 6:07pm Cardiac, BP, Pulse Ox Monitor October 13, 2024 6: 47pm October 13, 2024 6:46pm Insert Peripheral IV Access October 13, 2024 6:47 pm October 13, 2024 6:46pm Remove Clothing/Place in Gown October 13, 2024 6: 47pm October 13, 2024 6:46pm 2L NC Oxygen Therapy October 13, 2024 6:47pm Apri l 2024 6:46pm VS - Adult October 13, 2024 6:47pm October 6:46pm Electrocardiogram, Complete October 13, 2024 6:47 pm October 13, 2024 6:46pm Place in Observation October 13, 2024 11:17pm Apr 2024 11:15pm Resuscitation Status October 13, 2024 11:19pm Apr il 2024 11:17pm ACTIVATE TELEMETRY October 13, 2024 11:20pm October 13, 2024 TRANSFER ROOM October 13, 2024 11:58pm October CARDIOLOGY CONSULT October 14, 2024 1:24pm October 14, 2024 DISCHARGE PATIENT October 14, 2024 6:26pm October 142024 Insert Peripheral IV Access November 15, 2024 12:15 pm November 15, 2024 12:13pm VS - Adult November 15, 2024 12:15pm November 15, 2024 12:13pm EKG,INITIAL December 10, 2024 6:22pm December 10, 2024 6:21pm Cardiac, BP, Pulse Ox Monitor December 10, 2024 6:2 2pm December 10, 2024 6:21pm Insert Peripheral IV Access December 10, 2024 6:22p m December 10, 2024 6:21pm Remove Clothing/Place in Gown December 10, 2024 6:2 2pm December 10, 2024 6:21pm 2L NC Oxygen Therapy December 10, 2024 6:22pm December 10, 2024 6:21pm VS - Adult December 10, 2024 6:22pm December 10, 2024 6:21pm Electrocardiogram, Complete December 10, 2024 6:22p m December 10, 2024 6:21pm Future Medications Future medication information is unavailable Patient Instructions <tbody> Otitis Externa, Ppct-gu-Elud Allergic Rhinitis, Adult, Ea sy-to-Read Ovarian Cyst, Bucw-it-Mjat Abdominal Pain, Adult, Easy- to-Read Renal Mass Nonspecific Chest Pain, Adul t, Vhql-ud-Nusf Acetaminophen; Hydrocodone t ablets or capsules Sucralfate tablets Pantoprazole tablets Ciprofloxacin tablets Nonspecific Chest Pain, Adul t, Zbxn-vc-Izcn Alprazolam tablets Trazodone Tablets Aspirin Tablets Urinary Tract Infection, [place] lt, Lppz-hu-Bpup Dehydration, Adult, Easy-to- Read Urinary Tract Infection, [place] lt, Ezxt-gv-Uert Chest Wall Pain, Easy-to-[place] d Nausea, Adult, Gzbt-fe-Adru Nonspecific Chest Pain, Adul t Nonspecific Chest Pain, Adul t, Vedg-as-Qcji Renal Colic, Glot-hp-Ttfk Hematuria, Adult Chest Wall Pain, Easy-to-Concord d [facility] [id number] 21:50:29 Pt requesting to leave AMA. ERP notified. PT counseled to remain, risk of leaving AMA including discussed with pt. Pt continued to decline further ER evaluation at this time. AMA papers signed,witnessed, and placed on patients chart. Pt left ambulatory. GCS 15, and A&Ox4. Connie [facility]mrbe2611-34-70 20:00:15 EKG done at 1957 and given to ER provider. [facility]-86 19:51:23 Patient comes in with chest pain and shortness of breath that started about 45-60 minutes. Patient denies otc medications. Also reports nausea. Patient found on the floor in the waiting room when checking in. Provider in triage with fiction writer. Skin p/w/d, rr equal and non labored. A&Ox4. Talking in full sentences. [id number] 13:25:33 Problem: Falls, Risk of Goal: Absence [...] within specified parameters Outcome: Adequate for discharge T Maame Chen [facility]ghpez4352-46-95 01:17:18 Problem: Falls, Risk of Goal: Absence [...] specified parameters Outcome: Progressing as expected T [place] [id number] 22:27:16 Patient admitted to [facility] Med Surg for diagnosis of Chest pain Patient agrees to admission, discussed plan of care with patient and family. Patient is awake, alert, oriented, resp reg unlabored, color appropriate for race, PIV intact No adverse reaction to medications administered while in ED Belongings with patient to unit Report to Sneha RAMIREZ T Santi Delgadillo RNJames [place]ille [id number] 22:26:34 Nurse Report Report given to Sneha RAMIREZ. Chief complaint, assessment findings, infusion verify and orders reviewed. Santi Delgadillo RN [place] 122465-05-22 20:45:[address] Kwok pertaining to medication orders. BP was rechecked to be 125/[address] Kwok stated to hold the Nitro Paste, continue the Haldol 2mg administration, and give the [place] PRN. [place] [id number] 17:49:47 Pt [facility] ED [facility] constant CP that radiates into her L shoulder and down her arm x 1 hour. Reports it is aggravated by movement/exertion. EMS gave nitro x 1, pt had no relief. Pt also took 324mg ASA. Reports fatigue and generalized malaise for the past week. Hx of one stent placement 1 yr ago. T Adeline Montelongo RN[place] [id number] 17:48:00 [facility] Emergency Department Note Patient Name: Charity Roca Date of : 1980 44 year old female Treatment Room: [facility] FT02/[id number] Primary Care Physician: Riddhi Montes Patient Escorted by: Self [9] Mode of Arrival: EMS - [facility] [45] EMS Treatment Prior to ED Arrival: HELICOPTER REPAIRER treatment: Aspirin;NTG HELICOPTER REPAIRER treatment comments: 324mg ASA Travel and Exposure [...] vw Cbc with Diff Comp. Metabolic Panel (30902) Lipase Magnesium N-Terminal Pro-Bnp Troponin I No [...] Electronically signed by: Klaudia Narvaez DO 11/26/24 2321 [facility] - [id number] 15:49:26 Patient Care Team <thead> Team Status: Active Member Role Status Dates ENTER NAME IN NOTES OTHER primary care physician Nida TYSON MD Emergency Provider Active SOLEDAD ALONSO Admitting Provider Active SOLEDAD ALONSO Attending Provider Active JAN COX Next of Kin Active PIYUSH JUAREZ Emergency Contact Active CHARITY ROCA Guarantor Active [facility] [id number] 15:49:26 Thank you for choosing us for your medical care and it was a pleasure taking care of you. Your provider s name is nurse practitioner Cathy Alegria DNP, ROTOR COIL TAPER-. Follow up with your primary care provider in the next week if no improvement. Please return to the emergency department if your symptoms worsen and or any other emergency concerns. Future Tests Future scheduled test information is unavailable Pending Tests Pending diagnostic test information is unavailable Future Visits Future appointment information is unavailable Referrals to Other Providers <thead> Reason for Referral Referral Start Date Provider Provider Contact Information Provider Address NO PHYSICIAN NO PHYSICIAN MONTSERRAT TERRAZAS MD Work Phone: [address] [facility] [address] AIDEN SOLANO MD Work Phone: [address] [place] [address] [address] [facility] [id number] ENTER NAME IN NOTES OTHER ENTER NAME IN NOTES OTHER ENTER NAME IN NOTES OTHER Future Procedures <thead> Procedure Name Ordered Date Scheduled Date NPO except Meds April 10, 2024 4:54pm [...] 2024 4:51pm Cardiac, BP, Pulse Ox Monitor May 13, 2024 6:08pm May 13, 2024 6:07pm Insert Peripheral IV Access May 13, 2024 6 :08pm May 13, 2024 6:07pm Remove Clothing/Place in Gown May 13, 2024 6:08pm May 13, 2024 6:07pm 2L NC Oxygen Therapy May 13, 2024 6:08pm N ovember 2023 6:07pm VS - Adult May 13, 2024 6:08pm Novemb er 6th, 2024 6:07pm Electrocardiogram, Complete May 13, 2024 6 :08pm May 13, 2024 6:07pm Cardiac, BP, Pulse Ox Monitor October 13, 2024 6: 47pm October 13, 2024 6:46pm Insert Peripheral IV Access October 13, 2024 6:47 pm October 13, 2024 6:46pm Remove Clothing/Place in Gown October 13, 2024 6: 47pm October 13, 2024 6:46pm 2L NC Oxygen Therapy October 13, 2024 6:47pm Apri l 2024 6:46pm VS - Adult October 13, 2024 6:47pm October 6:46pm Electrocardiogram, Complete October 13, 2024 6:47 pm October 13, 2024 6:[address]pm [address] in Observation October 13, 2024 11:17pm Apr il 2024 11:15pm Resuscitation Status October 13, 2024 11:19pm Apr il 2024 11:17pm ACTIVATE TELEMETRY October 13, 2024 11:20pm October 13, 2024 TRANSFER ROOM October 13, 2024 11:58pm October CARDIOLOGY CONSULT October 14, 2024 1:24pm October 14, 2024 DISCHARGE PATIENT October 14, 2024 6:26pm October 142024 Insert Peripheral IV Access November 15, 2024 12:15 pm November 15, 2024 12:13pm VS - Adult November 15, 2024 12:15pm November 15, 2024 12:13pm Future Medications Future medication information is unavailable Patient Instructions <tbody> Otitis Externa, Wpsb-mo-Qevr Allergic Rhinitis, Adult, Ea sy-to-Read Ovarian Cyst, Ihxu-mg-Oqzd Abdominal Pain, Adult, Easy- to-Read Renal Mass Nonspecific Chest Pain, Adul t, Ihao-km-Wohz Acetaminophen; Hydrocodone t ablets or capsules Sucralfate tablets Pantoprazole tablets Ciprofloxacin tablets Nonspecific Chest Pain, Adul t, Yxsi-or-Gxey Alprazolam tablets Trazodone Tablets Aspirin Tablets Urinary Tract Infection, Milton lt, Yafx-no-Ausc Dehydration, Adult, Easy-to- Read Urinary Tract Infection, [place] lt, Uwgl-az-Xnrs Chest Wall Pain, Easy-to-Tiesha d Nausea, Adult, Aphr-ub-Mkcq Nonspecific Chest Pain, Adul t Nonspecific Chest Pain, Adul t, Zxqb-ff-Vgeo Renal Colic, Ctzh-po-Jknu Hematuria, Adult [facility] [id number] 22:15:04 Radiology reported to RN that pt was not in room when he arrived to take her for CT. Aprox 10 min later pt still not in room. Pt eloped before dispo. Becky Rios [facility] CenterYkpwdt9009-41-36 20:41:53 C/o bilateral lower back pain x1 day Took APAP at 5pm with no relief Dysuria Renato Doan [facility] CenterQljcti7776-16-09 20:36:00 [facility] Emergency Department Note Patient Name: Charity Roca Date of : 1980 44 year old female Treatment Room: Room/bed info not found Primary Care Physician: Riddhi Montes Patient Escorted by: Self [9] Mode of Arrival: Personal means [1] EMS Treatment Prior to ED Arrival: HELICOPTER REPAIRER treatment: None Travel and Exposure Screening: Symptoms [...] DO -- ED COURSE Diagnosis/Impression as of 11/14/242213 Flank pain Dysuria Procedures: Procedures MDM: Medical [...] Follow-up: Electronically signed by: Bushra Rios DO 11/14/242213 [facility] - [id number] 01:03:17 Pt given printed and verbal discharge [...] gait, in no apparent distress, Angelita Patino [place] [id number] 19:56:35 Pt given urine cup and placed back into lobby with instructions for collecting urine sample. [place] [id number] 19:52:11 Pt arrived ambulatory without assist. Pt c/o left lower abd pain that started around 12pm today. Shaneka Atkinson [place] [id number] 19:51:00 [facility] Emergency Department Note Patient Name: Charity Roca Date of : 1980 44 year old female Treatment Room: [facility] ED [facility] Primary Care Physician: Riddhi Montes Patient Escorted by: Family [5] Mode of Arrival: Personal means [1] EMS Treatment Prior to ED Arrival: HELICOPTER REPAIRER treatment: None Travel and Exposure Screening: Symptoms [...] History provided by: Patient and medical records stitch marker used: No Abdominal Pain Pain location: LUQ [...] Endocrine negative Physical Exam: ED Triage Vitals [05/06/25 1953] Weight 108.4 kg (239 lb) Actual or [...] 0.0 0.0 - 10.0 /100 WBCs NRBC x103<0.01 10*3/?L GRAN MAT (NEUT) % 49.2 % IMM GRAN % 0.10 % LYMPH % 40.4 % MONO % 7.0 % EOS % 2.8 % BASO % 0.5 % GRAN MAT x103(ANC) 3.86 1.88 - 7.09 10*3/uL IMM GRAN x103<0.03 0.00 - 0.06 10*3/uL LYMPH x1033.17 1.32 - 3.29 10*3/uL MONO x1030.55 0.33 - 0.92 10*3/uL EOS x1030.22 0.03 - 0.39 10*3/uL BASO x1030.04 0.01 - 0.07 10*3/uL COMP. METABOLIC PANEL (11361) - Abnormal NA 137 135 - 145 [...] contrast Cbc with Diff Comp. Metabolic Panel (56104) Urinalysis POCT TEST Lipase Orders Placed This [...] illness or injury Details: Will follow-up with OB-VMWARE ENGINEER Amount and/or Complexity of Data Reviewed Labs: [...] follow-up Riddhi Montes Relationship: PCP - General [facility] [address] [facility] [id number] Electronically signed by: Bob Garcia MD 11/11/24 0024 [facility]2025-04-30 10:58:35 Pt tolerating meals Up with minimal assist Right site clean, dry and intact; covered with gauze and tegaderm [facility] Laya Langley [facility] CenterFzkuaw1604-71-43 06:19:25 Problem: Falls, Risk of Goal: Absence [...] breakdown Outcome: Progressing as expected Anuradha Heard [facility] CenterNvxhsx1605-05-21 19:16:34 Problem: Falls, Risk of Goal: Absence of falls Outcome: Progressing as expected Problem: Discharge Planning Goal: Adequate to move to next level of care Outcome: Progressing as expected Goal: Knowledge of medication management Outcome: Progressing as expected Renato Mott [facility] CenterYfqzqi4243-46-77 04:24:10 Problem: Falls, Risk of Goal: Absence [...] airway Outcome: Progressing as expected Omaira Diaz [facility] CenterOxjqou0160-48-60 07:22:14 Problem: Falls, Risk of Goal: Absence [...] as expected Goal: Adequate work of breathing 11/02/2024 0721 by Omaira Diaz RN Outcome: Progressing as expected 11/02/2024 0720 by Omaira Diaz RN Outcome: Progressing as expected Goal: Patent airway 11/02/2024 0721 by Omaira Diaz RN Outcome: Progressing as expected 11/02/2024 0720 by Omaira Diaz RN Outcome: Progressing as expected [place] 122465-04-28 07:21:23 Problem: Falls, Risk of Goal: Absence [...] Goal: Patent airway Outcome: Progressing as expected [facility]2025-04-27 14:02:33 Report given to JAMES Trejo. [facility] Susie Willard [facility] CenterVgzwqq6233-55-80 08:41:16 Images from the original note were not included. Pharmacy Recommendations for Patient Admission: Consider lowering dose of famotidine to 20mg once daily as patient has been taking this dose at home. The HELICOPTER REPAIRER medication list has been updated and reflected in the chart below. Please use the HELICOPTER REPAIRER Med List for ordering home doses during admission. Patient Adherence: Adherent to all medications. Source(s) used in interview: Patient Interview limitations: None Medications Added Medications Removed Medications Modified Alprazolam dose reduced to 1mg BID prn Famotidine ordered as 20mg BID Methocarbamol ordered as 500mg Q6H prn Allergies as of 10/31/2024 (No Known Allergies) Pharmacy Updated HELICOPTER REPAIRER Med List Medication Sig aspirin 81 mg [...] in the evening.) Outpatient Pharmacy Contact Information[facility] [id number] - [place], [place] - [address] [facility] [address] [facility] [address] [facility] - [place] [address] [facility] [address] [facility]/pharmacy #[id number] - [place], [place] - [address] [address] Thank you for the opportunity to participate in the care of this patient. Surekha Rowland RPH 8:38 AM, 11/01/2024 [facility] Department of Pharmacy - [facility] Phone: ADC: [phone] T Surekha Rowland [facility]2025-04-27 01:15:13 Problem: Falls, Risk of Goal: Absence [...] Absence of infection Outcome: Progressing as expected [facility]2025-04-27 00:27:06 Patient states pain to chest no 6/10-appears much more comfortable, Bp normotensive. Transported via W/C to 2217. Patient alert, warm, dry, pink, in no distress upon departure from ER [facility]2025-04-27 00:22:38 Nurse Report Report given to Bhupinder RAMIREZ. Chief complaint, assessment findings, infusion verify and orders reviewed. Plan of care discussed at bedside with patient. Patient verbalized understanding. MAGGIE CACERES RN [facility]2025-04-26 23:15:00 Patient continues to C/O persistent sharp midsternal chest pain 9/. Medicated as ordered with GI cocktail po and Morphine 4 mg IV. [facility]2025-04-26 22:15:00 Dr Garcia at bedside. Medicated with NTG 0.4 mg Sl for sharp chest pain 10/10 without relief. Patient then medicated with Zofran 4 mg Iv and Morphine 4 mg IV as ordered. Patient anxious, hypertensive. [place] 122465-04-26 21:36:50 C/O onset sharp midsternal chest pain that radiates to left arm, left shoulder, and left scapula area-has been steadily worsening. Has had nausea and vomiting. Patient has had TN in the past, has cardiac stent X1 placed in September of last year. O2 at 2 liters/min placed without improvement to chest pain. [facility] Maggie Caceres [facility] CenterFucycz2959-17-63 21:24:00 Associated Order(s): EKG-12 Lead ROUTINE ONCE Pre-Procedure Diagnose(s): Chest pain, unspecified type Post-Procedure Diagnose(s): Chest pain, unspecified type [facility] Emergency Department Note Patient Name: Charity Roca Date of : 1980 44 year old female Treatment Room: 9/9 Primary Care Physician: Riddhi Montes Patient Escorted by: Family [5] Mode of Arrival: Personal means [1] EMS Treatment Prior to ED Arrival: HELICOPTER REPAIRER treatment: Other (comment) HELICOPTER REPAIRER treatment comments: Protoniz, 4 baby ASA, Toradol [...] been vomiting about five times today. 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 No known aggravating or relieving factors. Pt has taken ASA 324 mg HELICOPTER REPAIRER in the ED. Pt smokes 1/3PPD , No ETOH. Deneis any illcit drug use. No prolonged immobilization. No OCA. No leg edema or calf pain. Deneis any URI symptoms. No abdominal pain History provided by: Significant other and patient stitch marker used: No Chest Pain Pain location: Epigastric [...] S/P Stent X 06 September 2023 Q-wave TN Tetanus received in last 5 years: Unknown [...] reflect atelectasis or infiltrate. RL: 781 AFC: 72146 Lab Results: Lab Results COMP. METABOLIC PANEL (12107) - Abnormal Result Value Ref Range NA [...] 0.0 0.0 - 10.0 /100 WBCs NRBC x103<0.01 10*3/?L GRAN MAT (NEUT) % 61.6 % IMM GRAN % 0.50 % LYMPH % 30.4 % MONO % 5.6 % EOS % 1.4 % BASO % 0.5 % GRAN MAT x103(ANC) 8.21 (*) 1.88 - 7.09 10*3/uL IMM GRAN x1030.06 0.00 - 0.06 10*3/uL LYMPH x1034.04 (*) 1.32 - 3.29 10*3/uL MONO x1030.74 0.33 - 0.92 10*3/uL EOS x1030.19 0.03 - 0.39 10*3/uL BASO x1030.06 0.01 - 0.07 10*3/uL TROPONIN I - Normal TROPONIN I 0.004 <=0.034 ng/mL LIPASE - Normal LIPASE 98 0 - 220 U/L Orders and Treatments: Orders Placed This Encounter Procedures XR Chest 1 vw TROPONIN I COMP. METABOLIC PANEL (94672) LIPASE, SERUM CBC WITH DIFF POCT Test Cbc with Diff Basic Metabolic Panel (NA, K, CL, CO2, GLUCOSE, BUN, CREATININE, CA) Troponin I Procalcitonin Influenza A B RSV COVID NAAT Lab Only COVID Interpretation N-Terminal Pro-Bnp Lipid Panel (33992)(Total Cholesterol, Triglycerides, HDL) Glycosylated Hemoglobin (A1C) Urinalysis [...] mg morpHINE (4 mg/mL) injection 4 mg maalox/diphenhydrAMINE:lidocaine2 %viscous 1:1:1: suspension (COMPOUNDED) morpHINE (4 mg/mL) [...] care. AdmissionCare documentation entered by: Bob Garcia [facility] [employer], 28th edition, Copyright ? 2023 [facility] [employer] All Rights Reserved. [id number]:59:01-05:00 ED COURSE Diagnosis/Impression as of 11/03/24 0459 Chest pain, unspecified type Procedures: EKG-12 Lead ROUTINE ONCE Date/Time: 10/31/2024 9:32 PM Performed by: Bob Garcia MD Authorized by: Bob Garcia MD ECG interpreted by ED Physician in the absence of a outboard motor tester: yes Previous ECG: Previous ECG: Compared to [...] - Observation Condition -- Comment Treatment Team: [facility] [[id number]] Discharge Medications: Current Discharge Medication List STOP [...] signed by: Bob Garcia MD 11/03/24 0459 [facility] - Jnvedj1769-73-87 21:24:00 AdmissionCare Guideline: Chest Pain, Inpatient Based [...] care. AdmissionCare documentation entered by: Bob Garcia [facility], 28th edition, Copyright ? 2023 [facility] Center[facility] [employer] [facility] All Rights Reserved. [id number]:59:01-05:00 [facility]cvlxu3093-31-94 23:53:58 Awake, alert oriented X4, respiratory even [...] the lobby with steady gait. Connie Rivera [facility] CenterZuijuw4916-10-99 20:14:29 Patient arrived ambulatory to ED c/o upper abdominal pain that radiates to the left side. Went to PCP today and they told her if it was still hurting come to the ER. Toradol taken today with no relief. States she feels like it is her pancreas. Jen Merrill [facility] CenterZddium3739-92-30 20:12:00 [facility] Emergency Department Note Patient Name: Charity Roca Date of : 1980 44 year old female Treatment Room: TX1/TX1 Primary Care Physician: Riddhi Montes Patient Escorted by: Family [5] Mode of Arrival: Personal means [1] EMS Treatment Prior to ED Arrival: HELICOPTER REPAIRER treatment: Medication (comment) HELICOPTER REPAIRER treatment comments: Toradol Travel and Exposure Screening: [...] 0.0 0.0 - 10.0 /100 WBCs NRBC x103<0.01 10*3/?L GRAN MAT (NEUT) % 62.2 % IMM GRAN % 0.30 % LYMPH % 29.3 % MONO % 6.2 % EOS % 1.6 % BASO % 0.4 % GRAN MAT x103(ANC) 6.92 1.88 - 7.09 10*3/uL IMM GRAN x1030.03 0.00 - 0.06 10*3/uL LYMPH x1033.26 1.32 - 3.29 10*3/uL MONO x1030.69 0.33 - 0.92 10*3/uL EOS x1030.18 0.03 - 0.39 10*3/uL BASO x1030.05 0.01 - 0.07 10*3/uL COMP. METABOLIC PANEL (90928) - Abnormal NA 136 135 - 145 [...] contrast Cbc with Diff Comp. Metabolic Panel (14166) Lipase Urinalysis Orders Placed This Encounter Medications [...] A) Hiatal Hernia, UTI Disposition/Condition: Home, Pepcid, [place]/Zofran prn, Cefdinir x 7 days, ER warnings, [...] PCP Electronically signed by: Juanjose Barker MD 10/23/242340 [facility] JacksonTzuoag1918-69-23 10:16:39 Patient is here for a follow up from the hospital for chest pain and back pain. She needs a refill on the Hydroxyzine Pamoate 50 mg. She scored high for depression and anxiety but reports that she is able to use her coping mechanisms, has a place where she feels safe, and a safe person. [facility]2025-04-09 19:51:24 Patient Care Team <thead> Team Status: Active Member Role Status Dates ENTER NAME IN NOTES OTHER primary care physician Nida TYSON MD Emergency Provider Active SOLEDAD ALONSO Admitting Provider Active SOLEDAD ALONSO Attending Provider Active JAN COX Next of Kin Active PIYUSH JUAREZ Emergency Contact Active CHARITY ROCA Guarantor Active [facility] Cux0172-43-04 19:51:24 [facility] Joc1004-03-80 19:51:24 Future Tests Future scheduled test information is unavailable Pending Tests <thead> Test Name Ordered Date Scheduled Date Troponin T High Sensitivity October 14, 2024 11:1 7pm Future Visits Future appointment information is unavailable Referrals to Other Providers <thead> Reason for Referral Referral Start Date Provider Provider Contact Information Provider Address NO PHYSICIAN NO PHYSICIAN MONTSERRAT TERRAZAS MD Work Phone: [address] [facility] [address] AIDEN SOLANO MD Work Phone: [phone] [facility] [address] [facility] [id number] ENTER NAME IN NOTES OTHER ENTER NAME IN NOTES OTHER Future Procedures <thead> Procedure Name Ordered Date Scheduled Date NPO except Meds April 10, 2024 4:54pm [...] 2024 4:51pm Cardiac, BP, Pulse Ox Monitor May 13, 2024 6:08pm May 13, 2024 6:07pm Insert Peripheral IV Access May 13, 2024 6 :08pm May 13, 2024 6:07pm Remove Clothing/Place in Gown May 13, 2024 6:08pm May 13, 2024 6:07pm 2L NC Oxygen Therapy May 13, 2024 6:08pm N ovember 2023 6:07pm VS - Adult May 13, 2024 6:08pm Novemb er 2023 6:07pm Electrocardiogram, Complete May 13, 2024 6 :08pm May 13, 2024 6:07pm Cardiac, BP, Pulse Ox Monitor October 13, 2024 6: 47pm October 13, 2024 6:46pm Insert Peripheral IV Access October 13, 2024 6:47 pm October 13, 2024 6:46pm Remove Clothing/Place in Gown October 13, 2024 6: 47pm October 13, 2024 6:46pm 2L NC Oxygen Therapy October 13, 2024 6:47pm Apri l 2024 6:46pm VS - Adult October 13, 2024 6:47pm October 6:46pm Electrocardiogram, Complete October 13, 2024 6:47 pm October 13, 2024 6:46pm Place in Observation October 13, 2024 11:17pm Apr 2024 11:15pm CARDIAC TROPONIN T October 13, 2024 11:19pm October 14, 2024 11:17pm Resuscitation Status October 13, 2024 11:19pm Apr 2024 11:17pm Bathroom Privileges w/ Assist October 13, 2024 11 :19pm October 13, 2024 11:17pm Tylenol October 13, 2024 11:19pm October, 2024 11:20pm MORPHINE SULFATE October 13, 2024 11:19pm October 132024 11:20pm Narcan October 13, 2024 11:19pm October, 2024 11:20pm Zofran October 13, 2024 11:19pm October, 2024 11:20pm Colace October 13, 2024 11:19pm October, 2024 9:00am HOB Elevated 30 Degrees October 13, 2024 11:19pm October 13, 2024 11:17pm Code Status Notification October 13, 2024 11:19pm October 13, 2024 11:17pm ACTIVATE TELEMETRY October 13, 2024 11:20pm October 13, 2024 TRANSFER ROOM October 13, 2024 11:58pm October Xanax October 14, 2024 2:28am October 9:00am Ecotrin October 14, 2024 2:28am October 9:00am Plavix October 14, 2024 2:28am October 9:00am Imdur October 14, 2024 2:28am October 9:00am Toprol Xl October 14, 2024 2:28am October 9:00am Haldol October 14, 2024 2:50am October 9:00pm STRESS TEST-REST & STRESS October 14, 2024 7:19am October 14, 2024 7:18am CARDIOLOGY CONSULT October 14, 2024 1:24pm October 14, 2024 DISCHARGE PATIENT October 14, 2024 6:26pm October 142024 Future Medications Future medication information is unavailable Patient Instructions <tbody> Otitis Externa, Mzfn-py-Xbdh Allergic Rhinitis, Adult, Ea sy-to-Read Ovarian Cyst, Gign-qa-Kmhc Abdominal Pain, Adult, Easy- to-Read Renal Mass Nonspecific Chest Pain, Adul t, Ygff-yq-Yztx Acetaminophen; Hydrocodone t ablets or capsules Sucralfate tablets Pantoprazole tablets Ciprofloxacin tablets Nonspecific Chest Pain, Adul t, Xtof-lw-Ydry Alprazolam tablets Trazodone Tablets Aspirin Tablets Urinary Tract Infection, Milton lt, Niqc-wy-Uusj Dehydration, Adult, Easy-to- Read Urinary Tract Infection, Milton lt, Ipbt-kh-Used Chest Wall Pain, Easy-to-[place] d Nausea, Adult, Ivoi-qq-Fbkh Nonspecific Chest Pain, Adul t Nonspecific Chest Pain, Adul t, Wamc-jl-Wfvm [facility]2025-04-08 02:45:03 Pt given printed and verbal discharge [...] gait, in no apparent distress. Jeana Pringle [facility] CenterCqstqu8569-75-04 22:25:27 Pt arrived ambulatory without assist. Pt c/o chest pain that started around 8pm, and UTI symptoms that started yesterday. Shaneka Atkinson [facility] - Nniezn3346-53-95 01:23:02 Pt given printed and verbal discharge [...] with steady gait, in no apparent distress, [place] [address]10-01-12 00:57:31 ERP at bedside. [place] [address]10-01-12 00:09:25 07/18/24 2356 07/19/24 0000 07/19/24 0008 Orthostatic Vitals BP 132/56 (!) 139/92 (!) 157/112 BP Location Left arm Left arm Right leg Position Lying Sitting Standing Pulse 79 78 78 NYA Merrill [place] [address]24-01-11 23:44:12 Patient states "feeling like crap. Every time I stand up everything gets dizzy, black, and I feel like I am going to pass out." [place] [address]-01-11 22:39:11 Pt brought in by [facility]. [...] and pain in back. Pt went to [facility] yesterday and they said she was low on potassium (was given 4 tablets of potassium). Pt took home medications today ERCIAL ENERGY RATER Shaneka Atkinson [facility] CenterPdyoxw6285-93-27 01:30:39 PT D/C home. GCS15, VS stable. [...] have someone drive her home. NYA Ayala [facility] CenterLygupe2304-39-53 19:51:20 Pt arrives ambulatory to ED c/o N/V/D x3 days and says today began having right side abdominal pain. NYA Rios [facility] CenterEdrivr2011-99-18 02:58:12 Pt given printed and verbal discharge [...] with steady gait, in no apparent distress. [facility]2024-12-15 01:57:43 Pt arrives ambulatory to ED c/o "spider bite" upper right abdomen area. She says she squeezed it right before coming in and puss came out of it, leaving a black hole. So she came in to be evaled. NYA Rios [facility] CenterQkawyc9331-03-12 00:27:31 Pt given printed and verbal discharge [...] gait, in no apparent distress, NYA Delgadillo [facility] CenterAshxqo9493-38-27 22:55:00 Report given to JAMES Delgadillo ERCIAL ENERGY RATER Briseida Emery [facility] CenterPdclwp0910-94-93 21:23:27 Patient arrived ambulatory to ED c/o abdominal pain that started Saturday. Patient recently had heart cath placed on . States "haven't been keeping anything down. I can't even keep my medications down." [facility] Jen Merrill [facility] CenterLgdvuw7413-89-31 02:39:24 Pt given printed and verbal discharge [...] gait, in no apparent distress, NYA Delgadillo [facility] CenterQjzjzl7294-63-07 00:46:48 Report to Leona RAMIREZ. NYA Montelongo [facility] CenterKflpjw0726-78-44 22:01:17 Patient arrived ambulatory to ED c/o chest pain that started around 1900 tonight. Patient took 4 baby ASA HELICOPTER REPAIRER. Sharp chest pain that radiates to left shoulder. NYA Merrill [facility] CenterHrxwrq3809-43-40 13:02:38 Chief Complaint Patient presents with Shoulder Pain Pt complains of left shoulder pain that has been in pain for last 3 years. Pain is getting worse. No injury. No occupation. Pt has been doing PT for shoulder. She is also taking methocarbamol for pain however it is not helping. NYA Zazueta Eebeab7410-17-48 13:33:08 Patient given discharge instructions with readback, discussed prescriptions and follow up care. . Steady gait with NAD noted. NYA Giles V, [facility] CenterJtvzqw9730-25-89 11:42:01 Patient had a fall on Saturday and came into ED to be seen. Had pain meds and scan performed with no significant findings. Patient called her PCP and they told her to go to ER because she could have a concussion or just feel worse. NYA Cronin [facility] CenterRydzhm5809-95-79 10:27:22 Chief Complaint Patient presents with Physical Patient is fasting. No other issues to discuss Jennifer Del Castillo MA II [facility] CitynicolMelrose Area HospitalUpxnsi8003-66-02 22:18:24 Pt given printed and verbal discharge [...] gait, in no apparent distress, NYA Delgadillo [facility] CenterNwktjr0503-21-35 20:40:54 Okay to release information to father Piyush Demario per patient NYA Atkinson RNPatricia [place] 24823-11-10 20:18:[address] scan and brought to [facility] with RN and trauma team. Continuous cardiac monitoring and serial vital signs monitored by Santi RAMIREZ. Santi Delgadillo RN [place] [address]-11-10 19:58:[address] scan with RN and trauma team. Continuous cardiac monitoring and serial vital signs monitored by Santi RAMIREZ. Santi Delgadillo RN [place] [address]-11-10 18:55:00 Received report from Juliano RAMIREZ [place] [address]-11-10 18:35:54 Report received from EMS. Trauma protocol initiated. Trauma team members at bedside, primary and secondary survey in progress. Pt placed on continuous cardiac monitoring, pulse oximetry, and serial vital signs. Wellington Dorantes RN [place] [address]-11-10 18:31:04 Patient arrived by [facility], tripped over a floor tile and hit the occipital area. Unsure of LOC. Patient received 10mg of reglan and morphine 4mg HELICOPTER REPAIRER. [facility] Wellington Dorantes [place] [address]887-10-31 21:32:31 Patient discharged to home. Patient given [...] gait in no apparent distress. Cameron Posada [facility] JacksonHhivup0802-69-76 18:45:11 Pt arrived ambulatory with complaints of lower back pain, lower abdominal pain, and dysuria since yesterday. Took Tramadol at 2pm Aline Lou [facility] - Uppgmq0381-71-17 06:28:23 Patient Care Team <thead> Team Status: Active Member Role Status Dates ENTER NAME IN NOTES OTHER primary care physician Activ nancy MG JR, JR., MD Emergency Provider Active JAN COX Next of Kin Active PIYUSH JUAREZ Emergency Contact Active CHARITY ROCA Guarantor Active [facility] Jev8901-55-87 06:28:23 THANK YOU FOR CHOOSING US FOR YOUR MEDICAL CARE AND IT WAS A PLEASURE TO TAKE CARE OF YOU: PUSHPA RODRIGUEZ, MSN, LACE WEAVER, ROTOR COIL TAPER- DIAGNOSIS: UTI, GASTROENTERITIS PRESCRIPTION: ZOFRAN AND MACROBID PER PRESCRIPTION DETAILS SENT TO [facility]: [place] GIVEN IN ER FOLLOW UP: [...] NO PHYSICIAN MONTSERRAT TERRAZAS MD Work Phone: [address] [facility] [address] AIDEN SOLANO MD Work Phone: [address] [place] [phone] ENTER NAME IN NOTES OTHER Future Procedures [...] 11:00pm DISCHARGE PATIENT May 13, 2023 3:41pm Novnancy mber 2022 Cardiac, BP, Pulse Ox Monitor [...] VS - Adult August 31, 2023 6:49pm [facility] 6:45pm Electrocardiogram, Complete August 31, 2023 6:49pm [...] is unavailable Patient Instructions <tbody> Otitis Externa, Ipoi-ae-Gpws Allergic Rhinitis, Adult, Ea sy-to-Read Ovarian Cyst, Uqnu-gr-Gwex Abdominal Pain, Adult, Easy- to-Read Renal Mass Nonspecific Chest Pain, Adul t, Nrxz-lk-Aehi Acetaminophen; Hydrocodone t ablets or capsules Sucralfate tablets Pantoprazole tablets Ciprofloxacin tablets Nonspecific Chest Pain, Adul t, Upxa-hy-Tnfo Alprazolam tablets Trazodone Tablets Aspirin Tablets Urinary Tract Infection, Milton lt, Wqtp-nj-Cbys Dehydration, Adult, Easy-to- Read Urinary Tract Infection, Milton lt, Idpl-qb-Vmyu [facility]2024-10-02 20:37:07 Pt given printed and verbal discharge [...] gait, in no apparent distress Renato Doan [facility] CenterPaeuti4759-22-01 18:50:37 Nurse Report Report given to renato. Chief complaint, assessment findings, infusion verify and orders reviewed. Plan of care discussed. Lola Reynoso RN Lola Reynoso [facility] CenterXgydjc2551-09-89 17:27:35 Pt arrived ambulatory complains of abdominal pain and points to her left upper abdominal. Pt states that last time she had this type of pain it was pancreatitis. Reports pain started at 1300 and reports pain is 9/10 and hurts whenever she eats. Harriett Mejia [facility] CenterSkmkao8356-89-95 11:11:13 Chief Complaint Patient presents with Shoulder Pain Left shoulder pain with limited range of motion x 6 months, takes OTC tylenol for the pain as needed but pain is getting worse. 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 Not working currently Marbin Embnds4531-04-91 09:19:27 Chief Complaint Patient presents with [facility] ER follow up with admission on 12/04/2023 for chest pains. She had a stent placed by Dr. Arthur. Jennifer Del Castillo MA II Jennifer Cancino Xhylyg6075-60-10 10:49:31 Chief Complaint Patient presents with Anxiety Follow up on anxiety/depression. She states that it has gotten worse since last visit. She had an appointment with [facility] this morning and it was canceled due to internet outage. Jennifer Del Castillo MA II Jennifer Cancino Uklpoi5133-67-70 13:21:02 Chief Complaint Patient presents with [facility] told her she needed to go to a different doctor because they could not give her anything else Marbella Oh LVN Marbin Ugbagx3993-97-52 00:41:45 Pt given printed and verbal discharge [...] & in no apparent distress. Becky Rios [place] 701374-04-04 21:25:46 Pt arrived ambulatory but states feeling like she is going to pass out, Pt placed in ED wheelchair. Pt c/o " I have pain in my back on the left side, it mark when I pee, Im nauseous, I feel like Im going to pass out and I have been crapping on myself." Shaneka Atkinson [place] 701373-12-25 22:58:41 Pt discharged with diagnosis of RUQ abd pain and chronic abd pain. Printed and verbal instructions reviewed with and given to pt. Prescriptions given x 2. Pt verbalized understanding of teaching, medications, and recommended follow-up. Denies questions or concerns at this time. Pt ambulatory at discharge. Appears in no apparent distress. No ataxia noted. ERCIAL ENERGY RATER Adeline Floyd [id number] 19:46:03 Pt states sharp pain to the RLQ that started today around noon, pt denies any urinary symptoms, vomiting X 2 ERCIAL ENERGY RATER Razia Yost [facility] [id number] 00:14:00 Awake, alert oriented X4, respiratory even [...] noted upon discharge Pt ambulated to the [facility] with steady gait Razia Yost [place] [id number] 23:06:10 Received report from Evy RAMIREZ, assuming care. Brandy Lou [place] [id number] 22:38:[address] scan done. Patient states LQ abdominal pain now 01/14. T Maggie Caceres [place] [id number] 22:00:00 POCT test negative. Patient states RLQ abdominal pain improved briefly with IV Morphine administration, then returned at 03/17. Dr Richards informed, and patient medicated as ordered with Fentanyl 75 mcg slow IVP. [place] [id number] 21:00:00 Medicated as per order with Zofran 4 mg slow IVP and Morphine 4 mg slow IVP for RLQ abdominal pain 03/17. [place] [id number] 20:17:52 Pt arrived ambulatory with complaints of RLQ abd pain since yesterday. Pt reports N/V/D. Last took Tylenol at 3pm. Denies dysuria but reports frequency. Hx: Anxiety, Depression, PTSD, Pancreatitis Aline Lou [facility] CenterIdlxth3684-58-59 01:30:22 Discharged home ambulatory. Home instructions given. John Ventura [facility] [id number] 19:32:44 Pt CO of N/V, left lower back pain, painful urination and diarrhea since yesterday, states she was admitted last week for pancreatitis. Pt already promethazine tablets today with no relief. 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 RL: 460 AFC: 71386 Lab Results: Lab Results CBC WITH DIFF [...] POCT PREG TEST DATE COMP. METABOLIC PANEL (39032) NA 139 135 - 145 mmol/L K [...] CONTRAST CBC WITH DIFF COMP. METABOLIC PANEL (44764) LIPASE URINALYSIS POCT TEST Orders Placed This [...] Follow-up: Electronically signed by: Bob Garcia MD 03/02/23121 T [facility] - [id number] 02:22:03 Pt given printed and verbal discharge [...] leaving in no apparent distress, Linda Ayala [facility] CenterPbhmeb3131-10-10 22:53:36 Pt arrived ambulatory with complaints of [...] might be from her anxiety. Aline Lou [facility] CenterLrsebf2942-11-77 15:59:15 Problem: Pain Goal: Control of pain [...] communication Outcome: Adequate for discharge Beata Lamar [facility] CenterDuzxtd1954-40-21 00:21:19 Problem: Pain Goal: Control of pain [...] Goal: Effective communication Outcome: Progressing as expected [place] [address]-08-12 16:55:55 Problem: Pain Goal: Control of pain [...] Goal: Effective communication Outcome: Progressing as expected [place] [id number] 03:35:03 Problem: Pain Goal: Control of pain [...] Goal: Effective communication Outcome: Progressing as expected [place] [address]-08-11 19:41:18 Nurse Report Report given to JAMES Gatica. Chief complaint, assessment findings, infusion verify and orders reviewed. Plan of care discussed with both nurses. Stacie Man RN [facility] Stacie Man [place] [id number] 13:40:01 CC: patient presents to the ER [...] amb without assistance. Appears in no distress. 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 CHEST 1 VW Final Result [...] process is identified in the chest. RL: 8054 END OF REPORT Lab Results: reviewed by [...] 0.01 - 0.07 10*3/uL COMP. METABOLIC PANEL (77772) - Abnormal NA 138 135 - 145 [...] INTERPRETATION CBC WITH DIFF COMP. METABOLIC PANEL (27121) LIPASE Orders Placed This Encounter Medications ibuprofen [...] Performed by: Leeanne Wise NP Authorized by: Drever, Leeanne G, WHITE WORK CLEANER ECG reviewed by ED Physician in the absence of a outboard motor tester: yes Previous ECG: Previous ECG: Unavailable Interpretation: [...] this a planned re-admission?: No Treatment Team: [facility] [[id number]] Is this patient COVID positive or a patient under investigation (PUI)?: No Electronically signed by: Leeanne Wise NP 02/15/231910 Associated attestation - Bushra Rios DO - 02/16/2023 7:30 AM CDT I was personally available for consultation in the Emergency Department during this encounter and patient evaluation by Leeanne Wise. [facility]
[2025-02-03] MEDS ORDERED: ASPIRIN EC 81 MG TAB PO ONE (21:11)
[2025-02-03] MEDS ORDERED: NA CHLORIDE 0.9% 1,000 ML ONE (21:11)
[2025-02-03 22:00] LABS: Urine Culture Reflex Order NOT NEEDED; Urine Microscopic Reflex YN ORDER UMIC; Urine Yeast (Budding) Trace /HPF (None Seen)
[2025-02-03 22:13] LABS: METHAMPHETAM NEGATIVE (NEGATIVE); THC Cannibis NEGATIVE (NEGATIVE)
[2025-02-03] MEDS ORDERED: ONDANSETRON 4 MG/2 ML VIAL ONE (22:25)
[2025-02-03] MEDS ORDERED: MORPHINE 4 MG/ML SYR ONE (22:25)
[2025-02-03 22:33] LABS: PT Prothrombin Time 11.7 SECONDS (10-13.0); Protime INR 1.04
[2025-02-03 22:35] LABS: Absolute Lymphocytes (CBC) 3.7 K/uL (0.7-4.9); Hematocrit 38.1 % (36.0-45.0); Hemoglobin 12.3 g/dL (12.0-15.0); MCH 24.3 pg (27.0-35.0); MCHC 32.4 g/dL (32.0-36.0); MCV 75.0 fL (80-100); MPV 8.0 fL (7.6-11.3); Nucleated RBC Absolute Count 0.0 (0-0); Nucleated Red Blood Cells % 0.1 % (0-0); RBC Red Blood Cell Count 5.08 M/uL (3.86-4.86); White Blood Count 12.30 thou/uL (4.3-10.9)
--- NOTE | 2025-02-03 22:38 | RAD REPORT ---
EXAMINATION: ONE VIEW CHEST XR CLINICAL INDICATION: Female, 44 years old.,PAIN TECHNIQUE: Frontal chest projection is submitted. Examination is limited by patient positioning and t echnique. COMPARISON: 12/22/2024 FINDINGS: The lungs are well inflated and clear. No pneumothorax or sizable effusion. The heart is normal in s ize. Mediastinal contours are unremarkable. IMPRESSION: No acute intrathoracic abnormalities.
[2025-02-03 22:49] LABS: ALT/SGPT 25 U/L (13-56); AST/SGOT 17 U/L (15-37); Albumin 3.2 g/dL (3.4-5.0); Albumin/Globulin Ratio 0.8 (1.1-1.8); Alkaline Phosphatase 99 U/L (45-117); Anion Gap 7.0 mEq/L (5.0-15.0); BUN Blood Urea Nitrogen 6 mg/dL (7-18); Globulin 3.8 g/dL (2.3-3.5); Glucose Level 92 mg/dL (74-106); Lipase 30 U/L (13-75); Magnesium 1.9 mg/dL (1.6-2.4); NT PRO-BNP 22 pg/mL (<125); Potassium 4.0 mEq/L (3.5-5.1); Troponin High Sensitivity 9.6 pg/mL (<58.9)
[2025-02-03 22:50] LABS: Bilirubin Indirect, Calculated 0.0 mg/dL (0.2-0.8)
--- NOTE | 2025-02-03 23:33 | EDPHYS ---
Physician Documentation [facility] Name: Charity Hanks Age: 44 yrs Sex: Female : 1980 Arrival Date: 02/03/2025 Time: 20:12 Bed 17 Private MD: ED Physician Mayank Butler HPI: 02/03 23:25 This 44 yrs old Female presents to ER via Ambulatory with complaints of madeleine Shortness Of Breath, Chest Pain. 23:25 The patient has shortness of breath at rest. Onset: The symptoms/episode began/occurred madeleine today. Duration: The symptoms are intermittent, with episodes lasting 30 second(s) at a time. The patient's shortness of breath is aggravated by exertion, light activity, is alleviated by rest, application of supplemental oxygen. Associated signs and symptoms: The patient has no apparent associated signs or symptoms. Severity of symptoms: At their worst the symptoms were mild in the emergency department the symptoms are unchanged. The patient has not experienced similar symptoms in the past. cp with exertion. 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 - Infectious Disease History:: Denies. - Social history:: Smoking status: Patient/guardian denies using tobacco, Stopped _ months ago 1 Smoking status: Reported history of juuling and/or vaping. - Family history:: not pertinent. ROS: 23:25 Constitutional: Negative for fever, chills, and weight loss, Eyes: Negative for injury, madeleine pain, redness, and discharge, ENT: Negative for injury, pain, and discharge, Neck: Negative for injury, pain, and swelling, Respiratory: Negative for shortness of breath, cough, wheezing, and pleuritic chest pain, Abdomen/GI: Negative for abdominal pain, nausea, vomiting, diarrhea, and constipation, Back: Negative for injury and pain, : Negative for injury, bleeding, discharge, and swelling, MS/Extremity: Negative for injury and deformity, Skin: Negative for injury, rash, and discoloration, Neuro: Negative for headache, weakness, numbness, tingling, and seizure, Psych: Negative for depression, anxiety, suicide ideation, homicidal ideation, and hallucinations, Allergy/Immunology: Negative for hives, rash, and allergies, Endocrine: Negative for neck swelling, polydipsia, polyuria, polyphagia, and marked weight changes, Hematologic/Lymphatic: Negative for swollen nodes, abnormal bleeding, and unusual bruising, 23:25 Cardiovascular: Positive for chest pain, 23:25 Respiratory: Positive for shortness of breath, Exam: 23:25 Constitutional: This is a well developed, well nourished patient who is awake, alert, madeleine and in no acute distress. Head/Face: Normocephalic, atraumatic. Eyes: Pupils equal round and reactive to light, extra-ocular motions intact. Lids and lashes normal. Conjunctiva and sclera are non-icteric and not injected. Cornea within normal limits. Periorbital areas with no swelling, redness, or edema. ENT: Nares patent. No nasal discharge, no septal abnormalities noted. Tympanic membranes are normal and external auditory canals are clear. Oropharynx with no redness, swelling, or masses, exudates, or evidence of obstruction, uvula midline. Mucous membranes moist. Neck: Trachea midline, no thyromegaly or masses palpated, and no cervical lymphadenopathy. Supple, full range of motion without nuchal rigidity, or vertebral point tenderness. No Meningismus. Chest/axilla: Normal chest wall appearance and motion. Nontender with no deformity. No lesions are appreciated. Cardiovascular: Regular rate and rhythm with a normal S1 and S2. No gallops, murmurs, or rubs. Normal PMI, no JVD. No pulse deficits. Respiratory: Lungs have equal breath sounds bilaterally, clear to auscultation and percussion. No rales, rhonchi or wheezes noted. No increased work of breathing, no retractions or nasal flaring. Abdomen/GI: Soft, non-tender, with normal bowel sounds. No distension or tympany. No guarding or rebound. No evidence of tenderness throughout. Back: No spinal tenderness. No costovertebral tenderness. Full range of motion. Skin: Warm, dry with normal turgor. Normal color with no rashes, no lesions, and no evidence of cellulitis. MS/ Extremity: Pulses equal, no cyanosis. Neurovascular intact. Full, normal range of motion., bilateral aka Neuro: Awake and alert, GCS 15, oriented to person, place, time, and situation. Cranial nerves II-XII grossly intact. Motor strength 5/5 in all extremities. Sensory grossly intact. Cerebellar exam normal. Normal gait. Psych: Awake, alert, with orientation to person, place and time. Behavior, mood, and affect are within normal limits. 23:25 ECG was reviewed by the Attending Physician. 02/04 02:42 ECG was reviewed by the Attending Physician. [facility] 02:46 ECG was reviewed by the Attending Physician. [facility] Vital Signs: 02/03 20:18 BP 140 / 111; Pulse 110; Resp 20; Temp 97.6; Pulse Ox 100% ; Weight 104.33 kg; Height 5 me1 ft. 2 in. ; Pain 10/10; 22:32 BP 144 / 105; Pulse 92; Resp 21; Pulse Ox 97% ; vc1 02/04 00:15 BP 151 / 115; Pulse 82; Resp 16; Pulse Ox 98% on R/A; ss12 00:45 BP 165 / 150; Pulse 90; Resp 16 S; Pulse Ox 97% on R/A; ss12 01:21 BP 129 / 96; Pulse 93; Resp 16 S; Pulse Ox 95% on R/A; ss12 02/03 20:18 Body Mass Index 42.07 (104.33 kg, 157.48 cm) va1 02/03 20:18 Pain Scale: [facility] [place]: 02/03 20:16 Medical Screening Exam initiated madeleine 23:29 Differential diagnosis: Anemia Anxiety Reaction asthma, Bronchitis CHF exacerbation, madeleine Myocardial Infarction pneumonia, Psychogenic pulmonary edema, Pulmonary Embolism reactive airway disease, Sepsis Unstable Angina. Antibiotic administration: Not indicated. Immunization status:. Data reviewed: vital signs, nurses notes, lab test result(s), EKG, radiologic studies, plain films. Consideration of Admission/Observation Patient was admitted/placed on observation. Escalation of care including admission/observation considered. I considered the following discharge prescriptions or medication management in the emergency department Medications were administered in the Emergency Department. See MAR. Independent interpretation of the following test(s) in the Emergency Department EKG: See my EKG interpretation above. Test considered but Not performed: Ultrasound no 2 d echo. Care significantly affected by the following chronic conditions: Diabetes, Hypertension, Obesity, pancreatitis. Counseling: I had a detailed discussion with the patient and/or guardian regarding the historical points, exam findings, and any diagnostic results supporting the discharge/admit diagnosis, the presence of at least one elevated blood pressure reading (>120/80) during this emergency department visit, lab results, radiology results, the need for further work-up and treatment in the hospital. 02/03 20:19 Order name: Basic Metabolic Panel; Complete Time: 22:57 [facility] 02/03 20:19 Order name: CBC with Diff [facility] 02/03 20:19 Order name: LFT's; Complete Time: 22:57 [facility] 02/03 20:19 Order name: Magnesium; Complete Time: 22:57 [facility] 02/03 20:19 Order name: NT PRO-BNP; Complete Time: 22:57 [facility] 02/03 20:19 Order name: PT-INR; Complete Time: 22:57 [facility] 02/03 20:19 Order name: Troponin HS; Complete Time: 22:57 [facility] 02/03 20:19 Order name: UA Rfx Hong Cult if indicated; Complete Time: 22:57 [facility] 02/03 20:19 Order name: Lipase; Complete Time: 22:57 [facility] 02/03 20:19 Order name: UDS; Complete Time: 22:57 [facility] 02/03 22:37 Order name: CBC Smear Scan [facility] 02/03 23:25 Order name: Troponin High Sensitivity [facility] 02/04 00:39 Order name: CBC with Automated Diff [facility] 02/04 00:39 Order name: CBC with Automated Diff [facility] 02/04 00:39 Order name: Comprehensive Metabolic Panel [facility] 02/04 00:39 Order name: Comprehensive Metabolic Panel [facility] 02/04 00:39 Order name: Troponin High Sensitivity [facility] 02/04 00:39 Order name: Troponin High Sensitivity [facility] 02/04 00:39 Order name: Troponin High Sensitivity [facility] 02/04 00:39 Order name: Troponin High Sensitivity [facility] 02/03 20:19 Order name: XRAY Chest (1 view); Complete Time: 22:57 [facility] 02/03 20:19 Order name: Cardiac monitoring; Complete Time: 21:16 [facility] 02/03 20:19 Order name: EKG - Nurse/Tech; Complete Time: 21:16 madeleine 02/03 20:19 Order name: IV Saline Lock; Complete Time: 21:16 [facility] 02/03 20:19 Order name: Labs collected and sent; Complete Time: :16 [facility] 02/03 20:19 Order name: O2 Per Protocol; Complete Time: : [facility] 02/03 20:19 Order name: O2 Sat Monitoring; Complete Time: 21:16 [facility] 02/03 23:25 Order name: EKG - Nurse/Tech; Complete Time: 00:26 [facility] EC/31 02:42 Rate is 77 beats/min. Rhythm is regular. QRS [place] is Normal. NE interval is normal. QRS madeleine interval is normal. QT interval is normal. No Q waves. T waves are Normal. No ST changes noted. Clinical impression: NSR w/ Non-specific ST/T Changes and No evidence of ischemia. Interpreted by me. Reviewed by me. 02:46 Rate is 105 beats/min. QRS [place] is Normal. NE interval is normal. QRS interval is madeleine normal. QT interval is normal. No Q waves. T waves are Normal. No ST changes noted. Clinical impression: Sinus tachycardia and No evidence of ischemia. Interpreted by me. Reviewed by me. Administered Medications: 02/03 21:16 Not Given (Patient Refused): aspirinchewable tablet 81 mg PO once ss12 22:21 Drug: NS 0.9% IV 500 ml 500 ml IV at 1 bolus once; to be given as a bolus over 30 vc1 minutes {Note: right breast.} Volume: 500 ml; Route: IV; Rate: 1 bolus; Site: Other; 22:31 Drug: morphine IVP or IV 4 mg IVP once over 4 mins {Note: right breast.} Route: IVP; vc1 Infused Over: 4 mins; Site: Other; 22:31 Drug: Ondansetron IVP 4 mg IVP once; over 2 minutes {Note: right breast.} Route: IVP; vc1 Site: Other; 02/04 00:05 Drug: Lisinopril PO 20 mg PO once Route: PO; ss12 00:27 Follow up: Response: No adverse reaction ss12 00:05 Drug: Metoprolol PO 50 mg PO once Route: PO; ss12 00:27 Follow up: Response: No adverse reaction ss12 00:05 Drug: Enoxaparin Sub-Q 1 mg/kg Sub-Q once Route: Sub-Q; Site: abdomen; ss12 00:27 Follow up: Response: No adverse reaction ss12 00:05 Drug: morphine IVP or IV 4 mg IVP once over 4 mins Route: IVP; Infused Over: 4 mins; ss12 Site: left antecubital; 00:27 Follow up: Response: No adverse reaction; Pain is decreased ss12 00:05 Drug: Ondansetron IVP 4 mg IVP once; over 2 minutes Route: IVP; Site: Other; ss12 00:27 Follow up: Response: No adverse reaction; Nausea is decreased ss12 Disposition Summary: 02/03/25 23:32 Hospitalization Ordered Notes: Hospitalization Status: Observation madeleine Provider: Kurt Whitney cha Condition: Stable madeleine Problem: new madeleine Symptoms: have improved madeleine Bed/Room Type: Standard madeleine Location: Telemetry/MedSurg (observation)(02/04/25 11:25) kb3 Room Assignment: 207(02/04/25 11:25) kb3 Diagnosis - Dyspnea madeleine - Chest pain, unspecified madeleine - Essential (primary) hypertension madeleine Forms: - Medication Reconciliation Form madeleine - SBAR form madeleine - Leadership Thank You Letter madeleine Signatures: Dispatcher [employer] EDPR Mayank Butler MD MD cha Calcote, Vanessa RN RN vc1 Dona Vazquez, RN RN kb3 Yaritza Jane, RN RN me1 Mague Bowser RN RN ss12 Corrections: (The following items were deleted from the chart) 02/03 20:19 20:19 Chest Single View+RAD.RAD.BRZ ordered. EDPR EDPR 23:25 23:25 Troponin High Sensitivity+C.LAB.BRZ ordered. [facility] EDPR 02/04 01:14 02/03 23:32 Telemetry/MedSurg (observation) madeleine vc1 02/04 01:14 02/03 23:32 madeleine vc1 02/04 02:43 02/03 23:25 Rate is 105 beats/min. Rhythm is regular. QRS [place] is Normal. NE interval madeleine is normal. QRS interval is normal. QT interval is normal. No Q waves. T waves are Normal. No ST changes noted. Clinical impression: Sinus tachycardia and No evidence of ischemia. Interpreted by me. Reviewed by me. [facility] 02/04 11:25 01:14 [facility] ER HOLD vc1 kb3 11:25 01:14 ERHOLD- vc1 kb3
--- NOTE | 2025-02-03 23:33 | ER ---
Nurse's Notes [facility] Name: Charity Hanks Age: 44 yrs Sex: Female : 1980 Arrival Date: 02/03/2025 Time: 20:12 Bed 17 Private MD: Diagnosis: Dyspnea;Chest pain, unspecified;Essential (primary) hypertension Presentation: 02/03 20:18 Chief complaint: Patient states: mid sternal cp that started about 3 pm, radiates to me1 left chest and shoulder. 10/10, sharp in nature with associated sob and nausea. Coronavirus screen: Vaccine status: Patient reports receiving the 2nd dose of the covid vaccine. Ebola Screen: No symptoms or risks identified at this time. Initial Sepsis Screen: Does the patient meet any 2 criteria? HR > 90 bpm. Does the patient have a suspected source of infection? No. Patient's initial sepsis screen is negative. Risk Assessment: Do you want to hurt yourself or someone else? Patient reports no desire to harm self or others. Onset of symptoms was February 03, 2025 at 15:00. 20:18 Method Of Arrival: Ambulatory dc1 20:18 Acuity: CARLOS 3 me1 Triage Assessment: 20:21 General: Appears uncomfortable, Behavior is cooperative, appropriate for age, anxious. me1 Pain: Complains of pain in chest Pain radiates to anterior aspect of left upper chest Pain currently is 10 out of 10 on a pain scale. Quality of pain is described as sharp, Pain began suddenly, Is continuous. EENT: No signs and/or symptoms were reported regarding the EENT system. Neuro: Level of Consciousness is awake, alert, obeys commands, Oriented to person, place, time, situation, Appropriate for age. Cardiovascular: Reports chest pain, shortness of breath, Patient's skin is warm and dry. Respiratory: Reports shortness of breath on exertion Onset: The symptoms/episode began/occurred today, the patient has mild shortness of breath. Respiratory: Airway is patent Respiratory effort is even, unlabored, Respiratory pattern is regular, symmetrical. GI: Reports nausea. : No signs and/or symptoms were reported regarding the genitourinary system. Derm: Skin is intact, is healthy with good turgor, Skin is normal. Musculoskeletal: No signs and/or symptoms reported regarding the musculoskeletal system. 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 - Infectious Disease History:: Denies. - Social history:: Smoking status: Patient/guardian denies using tobacco, Stopped _ months ago 1 Smoking status: Reported history of juuling and/or vaping. - Family history:: not pertinent. Screenin:31 [facility] ED Fall Risk Assessment (Adult) History of falling in the last 3 months, vc1 including since admission No falls in past 3 months (0 pts) Confusion or Disorientation No (0 pts) Intoxicated or Sedated No (0 pts) Impaired Gait No (0 pts) Mobility Assist Device Used No (0 pt) Altered Elimination No (0 pt) Score/Fall Risk Level 0 - 2 = Low Risk Oriented to surroundings, Maintained a safe environment, Educated pt \T\ family on fall prevention, incl call for assistance when getting out of bed, Assessed \T\ reinforced patient's understanding of fall precautions, Hourly rounding (assess needs \T\ fall precautionary measures) done. Abuse screen: Denies threats or abuse. Nutritional screening: No deficits noted. Tuberculosis screening: No symptoms or risk factors identified. Assessment: 23:50 General: Appears in no apparent distress. comfortable, Behavior is calm, cooperative, ss12 quiet. Cardiovascular: Reports chest pain, Patient's skin is warm and dry. Rhythm is sinus rhythm. Respiratory: Airway is patent Respiratory effort is even, unlabored, Respiratory pattern is regular, symmetrical. GI: No deficits noted. Abdomen is round non-distended. : No deficits noted. No signs and/or symptoms were reported regarding the genitourinary system. Urine is clear. EENT: No deficits noted. No signs and/or symptoms were reported regarding the EENT system. Musculoskeletal: No deficits noted. No signs and/or symptoms reported regarding the musculoskeletal system. 23:50 Derm: No deficits noted. No signs and/or symptoms reported regarding the dermatologic ss12 system. Skin is intact, Skin is dry, Skin is pink, warm \T\ dry. normal. 23:50 Pain: Denies pain. Pain: Complains of pain in anterior aspect of left upper chest Pain ss12 radiates to left arm Pain currently is 10 out of 10 on a pain scale. Quality of pain is described as sharp, Pain began suddenly, Is intermittent. Neuro: No deficits noted. Level of Consciousness is awake, alert, obeys commands, Oriented to person, place, time. 23:50 Respiratory: Breath sounds are clear bilaterally. [facility] 02/04 01:23 Reassessment: Patient appears in no apparent distress at this time. Patient and/or ss12 family updated on plan of care and expected duration. Pain level reassessed. Patient is alert, oriented x 3, equal unlabored respirations, skin warm/dry/pink. Vital Signs: 02/03 20:18 BP 140 / 111; Pulse 110; Resp 20; Temp 97.6; Pulse Ox 100% ; Weight 104.33 kg; Height 5 me1 ft. 2 in. ; Pain 10/10; 22:32 BP 144 / 105; Pulse 92; Resp 21; Pulse Ox 97% ; vc1 02/04 00:15 BP 151 / 115; Pulse 82; Resp 16; Pulse Ox 98% on R/A; ss12 00:45 BP 165 / 150; Pulse 90; Resp 16 S; Pulse Ox 97% on R/A; ss12 01:21 BP 129 / 96; Pulse 93; Resp 16 S; Pulse Ox 95% on R/A; ss12 02/03 20:18 Body Mass Index 42.07 (104.33 kg, 157.48 cm) me1 02/03 20:18 Pain Scale: Adult dc1 ED Course: 02/03 20:14 Patient arrived in ED. im 20:16 Mayank Butler MD is Attending Physician. madeleine 20:21 Triage completed. me1 20:21 Arm band placed on Patient placed in an exam room. dc1 20:30 EKG done, by ED staff, reviewed by Mayank Butler MD. me1 21:15 Mague Bowser, RN is Primary Nurse. 12 21:50 XRAY Chest (1 view) In Process Unspecified. EDMS 22:15 Missed attempt(s): 22 gauge in right antecubital area. Bleeding controlled, band aid vc1 applied, catheter tip intact. 22:21 Inserted saline lock: 22 gauge in right ,using aseptic technique. Breast Blood vc1 collected. Flushed with 10 mL NS. 22:32 Patient has correct armband on for positive identification. Bed in low position. Call vc1 light in reach. Provided Education on: Plan of care. 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 Pulse ox on. NIBP on. 23:32 Kurt Whitney MD is Hospitalizing Provider. [facility] 02/04 01:22 No provider procedures requiring assistance completed. ss12 Administered Medications: 02/03 21:16 Not Given (Patient Refused): aspirinchewable tablet 81 mg PO once ss12 22:21 Drug: NS 0.9% IV 500 ml 500 ml IV at 1 bolus once; to be given as a bolus over 30 vc1 minutes {Note: right breast.} Volume: 500 ml; Route: IV; Rate: 1 bolus; Site: Other; 22:31 Drug: morphine IVP or IV 4 mg IVP once over 4 mins {Note: right breast.} Route: IVP; vc1 Infused Over: 4 mins; Site: Other; 22:31 Drug: Ondansetron IVP 4 mg IVP once; over 2 minutes {Note: right breast.} Route: IVP; vc1 Site: Other; 02/04 00:05 Drug: Lisinopril PO 20 mg PO once Route: PO; 12 00:27 Follow up: Response: No adverse reaction ss12 00:05 Drug: Metoprolol PO 50 mg PO once Route: PO; ss12 00:27 Follow up: Response: No adverse reaction ss12 00:05 Drug: Enoxaparin Sub-Q 1 mg/kg Sub-Q once Route: Sub-Q; Site: abdomen; ss12 00:27 Follow up: Response: No adverse reaction ss12 00:05 Drug: morphine IVP or IV 4 mg IVP once over 4 mins Route: IVP; Infused Over: 4 mins; 12 Site: left antecubital; 00:27 Follow up: Response: No adverse reaction; Pain is decreased ss12 00:05 Drug: Ondansetron IVP 4 mg IVP once; over 2 minutes Route: IVP; Site: Other; ss12 00:27 Follow up: Response: No adverse reaction; Nausea is decreased ss12 Medication: 02/03 22:32 VIS not applicable for this client. vc1 Outcome: 23:32 Decision to Hospitalize by Provider. [facility] 02/04 12:54 Patient left the ED. iw Signatures: Dispatcher [employer] EDMayank Buck MD MD cha Williams, Irene, RN RN iw Heide Jeffrey RN RN vc1 Obdulia Draper Michelle RN RN me1 Mague Bowser RN RN ss12 Corrections: (The following items were deleted from the chart) : General: Appears in no apparent distress. comfortable, Behavior is calm, 12 cooperative, quiet, [facility] : Pain: Denies pain. [place] [id number] : Neuro: No deficits noted. Level of Consciousness is awake, alert, obeys commands, 12 Oriented to person, place, time, [facility] Cardiovascular: Reports chest pain, Patient's skin is warm and dry. Rhythm is [facility] sinus rhythm [facility] Respiratory: Airway is patent Respiratory effort is even, unlabored, Respiratory [facility] pattern is regular, symmetrical, [facility] GI: No deficits noted. Abdomen is round non-distended, [place] [id number] : : No deficits noted. No signs and/or symptoms were reported regarding the [facility] genitourinary system. Urine is clear, [facility] : EENT: No deficits noted. No signs and/or symptoms were reported regarding the [facility] EENT system. [facility] : Derm: No deficits noted. No signs and/or symptoms reported regarding the [facility] dermatologic system. Skin is intact, Skin is dry, Skin is pink, warm \T\ dry. normal, [facility] : Musculoskeletal: No deficits noted. No signs and/or symptoms reported regarding [facility] the musculoskeletal system. [facility] : 00:45 BP 165 / 150; Pulse 162bpm; Resp 16bpm; Spontaneous; Pulse Ox 97% RA; 12 12 01:22 Respiratory: Breath sounds are clear bilaterally. [place] [id number]
[2025-02-04] MEDS ORDERED: METOPROLOL TAR 25 MG TAB ONE (00:08)
[2025-02-04] MEDS ORDERED: ONDANSETRON 4 MG/2 ML VIAL ONE (00:08)
[2025-02-04] MEDS ORDERED: ENOXAPARIN 80 MG/0.8 ML SQ ONE (00:09)
[2025-02-04] MEDS ORDERED: MORPHINE 4 MG/ML SYR ONE ×2 (00:09→04:31)
--- NOTE | 2025-02-04 00:33 | P.HP ---
Certification for Inpatient Patient admitted to: Observation With expected LOS: <2 Midnights Practitioner: I am a practitioner with admitting privileges, knowledge of patient current condition, hospital course, and medical plan of care. Services: Services provided to patient in accordance with Admission requirements found in Title 42 Section 412.3 of the Code of Federal Regulations Patient History Date of Service: 02/04/25 Reason for admission: Chest Pain History of Present Illness: 44 yrs old Female with past medical history of hypertension, hyperlipidemia, history of CAD status post [place] and PCI with a stent placed previously, anxiety, depression, history of pancreatitis and PTSD who was brought to ER with shortness of breath and chest discomfort which has been going on since 2 to 3 days. Patient complains of pressure-like retrosternal location chest discomfort with radiation to left arm. No fever or chills. No nausea vomiting or diarrhea. Shortness of breath aggravated by exertion even with minimal activities. Patient was assessed in the ER was admitted for further management of chest pain rule out ACS Allergies No Known Allergies Allergy (Verified 06/11/24 01:05) Home medications list reviewed: Yes Home Medications: Aspirin [Adult Aspirin Regimen] 81 mg PO DAILY 30 Days #30 tab 12/06/23 Clopidogrel Bisulfate [Plavix*] 75 mg PO DAILY 30 Days #30 tab 12/06/23 Metoprolol Succinate [Toprol Xl*] 25 mg PO DAILY 05/11/24 Rosuvastatin [Crestor*] 40 mg PO BEDTIME 05/11/24 Sertraline [Zoloft*] 200 mg PO DAILY 06/11/24 Isosorbide Mononitrate [Isosorbide Mononitrate ER] 90 mg PO DAILY 08/22/24 Pantoprazole Sodium [Protonix] 40 mg PO DAILY 08/22/24 haloperidoL [Haldol] 3 mg PO BEDTIME 11/28/24 hydrOXYzine HCL [Atarax] 50 mg PO BID 11/28/24 lisinopriL [Lisinopril] 5 mg PO DAILY 11/28/24 Hydrocodone 10/APAP 325 [[place] 10/325] 1 tab PO Q8H PRN #20 tab 11/29/24 - Past Medical/Surgical History Diabetic: No Past Medical History: Reviewed- Non-Contributory -: Anxiety/depression -: Bipolar -: PTSD -: HLD -: [place] -: Angina -: HTN Past Surgical History: Reviewed- Non-Contributory -: Cholecystectomy -: tonsillectomy -: cardiac stent x1 Psychosocial/ Personal History: Unemployed, lives at home with her father and 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 - Family History Mother -: Heart disease Father -: Heart disease Brother Notes: bipolar. anxiety. depression - Social History Alcohol use: No CD- Drugs: No Caffeine use: Yes Review of Systems 10-point ROS is otherwise unremarkable Physical Examination - Vital Signs Temperature: 98.4 F Blood Pressure: 146/76 Pulse: 78 Respirations: 18 Pulse Ox (%): 94 - Physical Exam General: Alert, Oriented x3, Mild distress, Obese HEENT: Atraumatic, Normocephalic Neck: Supple Respiratory: Clear to auscultation bilaterally, Normal air movement Cardiovascular: Normal pulses, Regular rate/rhythm, Normal S1 S2 Capillary refill: <2 Seconds Gastrointestinal: Soft and benign, W/out hepatosplenomegaly Musculoskeletal: No clubbing Integumentary: No rashes, No breakdown Neurological: Other (Alert awake nonfocal) Lymphatics: No axilla or inguinal lymphadenopathy - Studies Laboratory Data (last 24 hrs) 02/03/25 02/03/25 02/03/25 22:11 22:11 22:11 WBC 12.30 H Hgb 12.3 Hct 38.1 Plt Count 334 PT 11.7 INR 1.04 Sodium 138 Potassium 4.0 BUN 6 L Creatinine 0.76 Glucose 92 Magnesium 1.9 Total Bilirubin 0.2 AST 17 ALT 25 Alkaline Phosphatase 99 Lipase 30 Assessment and Plan - Plan Chest pain to rule out ACS Will trend cardiac enzymes Will monitor telemetry Started on aspirin and statin EKG did not show any acute changes suggestive of ischemia Will get an echocardiogram Cardiology consult Pain control Hypertension Antihypertensives titrated Continue home medications and titrate as needed Hyperlipidemia Continue statin Anxiety Depression Continue home medications atorvastatin GI/DVT prophylaxis Advanced directive full code Discharge Plan: Home Plan to discharge in: 48 Hours - Advance Directives Does patient have a Living Will: No Does patient have a Durable POA for Healthcare: No - Code Status/Comfort Care Code Status: Full Code Time Spent Managing Pts Care (In Minutes): 48
[2025-02-04 00:34] LABS: Blood Morphology Comment NOT SEEN (NOT SEEN); White Blood Cell Scan OK (OK)
[2025-02-04] MEDS ORDERED: ACETAMINOPHEN 325 MG TABLET PO PRN (00:34)
[2025-02-04] MEDS ORDERED: HYDROCODONE/APAP 10/325 TAB PO PRN (02:30)
[2025-02-04] MEDS: MORPHINE 2 MG/ML SYR IV PRN (04:30)
[2025-02-04] MEDS ORDERED: MORPHINE 2 MG/ML SYR ONE ×2 (04:35→08:39)
[2025-02-04 05:44] VITALS: BMI 27.8
[2025-02-04] MEDS ORDERED: ASPIRIN EC 81 MG TAB PO ONE (08:03)
[2025-02-04] MEDS ORDERED: HYDROCODONE/APAP 5/325 MG TAB ONE (08:03)
[2025-02-04] MEDS: HYDROCODONE/APAP 5/325 MG TAB PO PRN (08:10)
[2025-02-04] MEDS: ASPIRIN EC 81 MG TAB PO SCH (08:33)
[2025-02-04] MEDS ORDERED: PANTOPRAZOLE 40MG TABLET PO ONE (08:40)
[2025-02-04] MEDS ORDERED: CLOPIDOGREL 75 MG TABLET ONE (08:40)
[2025-02-04] MEDS ORDERED: hydrOXYzine HCL 25 MG TAB ONE (08:40)
[2025-02-04] MEDS ORDERED: ENOXAPARIN 40 MG/0.4 ML SQ ONE (08:40)
[2025-02-04] MEDS: ENOXAPARIN 40 MG/0.4 ML SQ SCH (08:48)
[2025-02-04] MEDS: hydrOXYzine HCL 25 MG TAB PO SCH (08:48)
[2025-02-04] MEDS: PANTOPRAZOLE 40MG TABLET PO SCH (08:49)
[2025-02-04] MEDS: CLOPIDOGREL 75 MG TABLET PO SCH (08:49)
[2025-02-04] MEDS: METOPROLOL XL 25 MG TAB PO SCH (09:00)
[2025-02-04] MEDS: SERTRALINE HCL 100 MG TAB PO SCH (09:00)
[2025-02-04] MEDS: ISOSORBIDE MONO SR 30 MG TAB PO SCH (09:00)
--- NOTE | 2025-02-04 10:32 | P.PN ---
Date of Service: 02/04/25 Patient is a 44-year-old female with a past medical history of coronary disease status post PCI.
[2025-02-04] MEDS: ONDANSETRON 4 MG/2 ML VIAL IV PRN (16:48)
--- NOTE | 2025-02-04 20:07 | CON ---
Date of Consultation: 02/04/2025 Reason For Consultation: Chest pain. History Of Present Illness: A 44-year-old female with history of coronary artery disease, status pos t PCI in the past, has dyslipidemia and hypertension, presented to the emergency room with chest disc omfort along with dyspnea on exertion. She describes it as a pressure-like on the left side, no radi ation. Denies having any other symptoms. At the time of my evaluation, she was chest pain free. Past Medical History: As outlined above, coronary artery disease, hypertension, dyslipidemia. Medications: Refer to reconciliation sheet for detailed list. Allergies: NO KNOWN DRUG ALLERGIES. Family History: No premature coronary artery disease or cancer. Social History: She does not smoke or drink. Does not use any drugs. Review of Systems: All systems reviewed and they are negative except as mentioned in the HPI. Physical Examination: Vital Signs: Reviewed. Head and Neck: Pupils are equal, reactive to light. Intact eye movements. No JVD. No cervical lym phadenopathy. Neck is supple. Thyroid is not enlarged. Lungs: Clear to auscultation bilaterally. No rhonchi, wheezing, or crackles. No accessory muscle u se. Heart: Regular rate and rhythm. No extra sounds. Abdomen: Soft, nontender. Bowel sounds positive. No organomegaly. No rigidity or rebound. Extremities: No edema, clubbing, or cyanosis. Intact pulses. Skin: No rash. No nodules. Neurologic: Alert, awake, oriented x3. No acute focal deficits appreciated. Investigations: Hemoglobin 12.3, BUN 6, creatinine 0.76. Troponin x3 are negative. Assessment And Recommendations: 1. Chest pain, known coronary artery disease. Cardiac enzymes are negative. 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 In the interim, continue baby aspirin and Plavix. 2. Dyslipidemia. Continue Crestor 40 mg q.h.s. 3. Hypertension. Blood pressure is well controlled. Continue current therapy. SR/MODL Voice ID: [id number] Report ID: [id number]
[2025-02-04] MEDS: ROSUVASTATIN 10 MG TAB PO SCH (21:07)
[2025-02-04] MEDS: ZOLPIDEM TARTRATE 10 MG TABLET PO SCH (22:13)
[2025-02-04] MEDS: QUETIAPINE 100MG TAB PO SCH (22:13)
[2025-02-05 06:08] LABS: Absolute Lymphocytes (CBC) 2.2 K/uL (0.7-4.9); Hematocrit 32.4 % (36.0-45.0); Hemoglobin 10.6 g/dL (12.0-15.0); MCH 24.7 pg (27.0-35.0); MCHC 32.8 g/dL (32.0-36.0); MCV 75.3 fL (80-100); MPV 7.5 fL (7.6-11.3); Nucleated RBC Absolute Count 0.0 (0-0); Nucleated Red Blood Cells % 0.1 % (0-0); RBC Red Blood Cell Count 4.30 M/uL (3.86-4.86); White Blood Count 7.90 thou/uL (4.3-10.9)
[2025-02-05 06:27] LABS: ALT/SGPT 98.0 U/L (13-56); AST/SGOT 60.0 U/L (15-37); Albumin 2.8 g/dL (3.4-5.0); Albumin/Globulin Ratio 0.9 (1.1-1.8); Alkaline Phosphatase 131.0 U/L (45-117); Anion Gap 6.0 mEq/L (5.0-15.0); BUN Blood Urea Nitrogen 8.0 mg/dL (7-18); Globulin 3.0 g/dL (2.3-3.5); Glucose Level 96.0 mg/dL (74-106); Potassium 4.0 mEq/L (3.5-5.1)
[2025-02-05] MEDS ORDERED: QUETIAPINE 100MG TAB PO SCH (09:00)
[2025-02-05] MEDS ORDERED: ZOLPIDEM TARTRATE 10 MG TABLET PO SCH (09:00)
[2025-02-05] MEDS ORDERED: VERAPAMIL HCL 10 MG/4 ML VIAL IV ONE (10:53)
[2025-02-05] MEDS ORDERED: HEPARIN 10,000 UNIT/10 ML VIAL IV ONE (10:53)
[2025-02-05] MEDS ORDERED: LIDOCAINE 1% 20 ML MDV ONE (10:53)
[2025-02-05] MEDS ORDERED: HEPA 1000U/500MLS 2,000 UNIT/1,000 ML BAG IV ONE (10:53)
[2025-02-05] MEDS ORDERED: TICAGRELOR 90 MG TABLET PO ONE (10:54)
[2025-02-05] MEDS ORDERED: CLOPIDOGREL 75 MG TABLET ONE (10:54)
[2025-02-05] MEDS ORDERED: ASPIRIN 325 MG TAB ONE (10:54)
[2025-02-05] MEDS ORDERED: HEPARIN 5000 UNIT/ML 1 ML VIAL ONE (10:54)
[2025-02-05] MEDS ORDERED: ATROPINE SULF 1 MG/10 ML SYR IV ONE (10:54)
[2025-02-05] MEDS ORDERED: MIDAZOLAM HCL 2 MG/2 ML INJ ONE (10:56)
[2025-02-05] MEDS ORDERED: FENTANYL CITR 100 MCG/2 ML ONE (10:56)
--- NOTE | 2025-02-05 12:38 | OP ---
Date of Procedure: 02/05/2025 Surgeon: ROSE GIPSON Procedures Performed: 1. Selective coronary angiogram. 2. Left heart catheterization. Indication: Unstable angina. Access: Right common femoral artery 6-Montserratian, closed with 6-Montserratian Mynx closure device. Complications: None. Bleeding: Less than 50 mL. Total Sedation Time: 45 minutes. Description Of Procedure: After risks, benefits, and alternatives were explained, the patient agreed to procedure and signed informed consent. The patient was brought into cardiac catheterization [facility], prepped and draped in usual sterile fashion. I accessed right common femoral artery using mi cropuncture kit, ultrasound guidance, fluoroscopy, placed 6-Montserratian [place] sheath and took a 6-Frenc h JL4 catheter into the aortic root over a J-wire, engaged left main, took standard views, and then e xchanged for 6-Montserratian JR4 catheter across the aortic valve, measured the LVEDP. Pullback did not rec ord any gradient and then engaged the RCA, took standard views, and then removed the catheter and the sheath, and 6-Montserratian Mynx closure device was used for closure with good hemostasis. Findings: 1. Left main is normal. 2. LAD; in the proximal to mid, there is multiple tandem lesions ranging between 30% and 40%, very la rge artery. Normal diagonal branches. 3. Left circumflex; large and codominant and normal. 4. RCA is a codominant circulation, moderate size, has proximal 40% to 50%, mid 40% stenosis, and wid nakul patent PDA stent. 5. LVEDP is borderline at 30 mmHg. Conclusions: 1. Widely patent PDA stent. 2. Mild to moderate coronary artery disease elsewhere. Recommendation: Medical management. This chest pain is noncardiac. Recommend to continue aspirin, high-dose statin. Follow up with her primary paralegal specialist post discharge. From Cardiology standpoin t, the patient can be released today. SR/MODL Voice ID: [id number] Report ID: [id number]
--- NOTE | 2025-02-05 12:48 | PN ---
Date of Progress Note: 02/05/2025 Subjective: Seen by bedside. Continues to have chest pain with any movement. She gets chest pressu re, radiates to the shoulder and neck. Cardiac enzymes are negative. Review of Systems: Positive for chest pain and shortness of breath on exertion. No nausea, vomiting, diarrhea. No dysu ti, polyuria, or urinary urgency. All other systems reviewed and they are negative. Physical Examination: Vital Signs: Reviewed. Head and Neck: Pupils are equal, reactive to light. Intact eye movements. No JVD. No cervical lym phadenopathy. Neck is supple. Thyroid is not enlarged. Lungs: Clear to auscultation bilaterally. No rhonchi, wheezing, or crackles. No accessory muscle u se. Heart: Regular rate and rhythm. No extra sounds. Abdomen: Soft, nontender. Bowel sounds positive. No organomegaly. No masses or hernia. No rigidi ty or rebound. Extremities: No edema, clubbing, cyanosis. Intact pulses. Skin: No rash. No nodule. Neurologic: Alert, awake, oriented x3. No acute focal deficits appreciated. Investigations: Cardiac enzymes are negative. BUN 8, creatinine 0.66, hemoglobin 10.6. Assessment And Recommendations: 1. Chest pain, known coronary artery disease, status post PCI of the LAD, very typical pain. Cardiac enzymes are negative. This could be suggestive of unstable angina. Keep n.p.o. Plan for coronary angiogram today. 2. Hypertension. Blood pressure is controlled. Continue current therapy. 3. Dyslipidemia. Continue rosuvastatin. Further recommendation after the coronary angiogram. SR/MODL Voice ID: [id number] Report ID: [id number]
--- NOTE | 2025-02-05 19:19 | P.PN ---
Subjective Date of Service: 02/05/25 Chief Complaint: Chest Pain Subjective: Other (Procedure well-tolerated) Patient is 44 years old female patient with past medical history of hypertension, hyperlipidemia, CAD status post [place] and PCI with stent placement, anxiety and depression who came in for evaluation of ongoing chest discomfort with associated shortness of breath. Workup done, cardiac enzymes negative, EKG unremarkable. Cardiology consulted for further evaluation and recommend coronar y angiogram which was done today. Procedure well-tolerated by patient and plan for discharge. However, patient prefer to be discharged in the am. Review of Systems 10-point ROS is otherwise unremarkable Physical Examination - Vital Signs Temperature: 98.0 F Blood Pressure: 101/54 Pulse: 66 Respirations: 18 Pulse Ox (%): 94 - Physical Exam General: Alert, In no apparent distress, Oriented x3 HEENT: Atraumatic, Normocephalic Neck: 2+ carotid pulse no bruit Respiratory: Normal air movement Cardiovascular: Normal pulses, Regular rate/rhythm Capillary refill: <2 Seconds Gastrointestinal: Normal bowel sounds Musculoskeletal: No clubbing, No swelling, No contractures Integumentary: No rashes - Studies Laboratory Data (last 24 hrs) 02/05/25 02/05/25 05:53 05:53 WBC 7.90 Hgb 10.6 L Hct 32.4 L Plt Count 275 Sodium 137 Potassium 4.0 BUN 8 Creatinine 0.66 Glucose 96 Total Bilirubin 0.2 AST 60 H ALT 98 H Alkaline Phosphatase 131 H Assessment And Plan - Plan #Chest pain, known coronary artery disease, status post PCI of the LAD, very typical pain. Cardiac enzymes are negative. This could be suggestive of unstable angina. Keep n.p.o. --Patient underwent Plan for coronary angiogram today. Result shows Widely patent PDA stent. Procedure well-tolerated, planned for discharge however patient would like to be discharged in the morning -- Continue to monitor patient hemodynamic status Hypertension Antihypertensives titrated Continue home medications and titrate as needed Hyperlipidemia Continue statin Anxiety Depression Continue home medications atorvastatin Discharge Plan: Home Plan to discharge in: 24 Hours - Code Status/Comfort Care Code Status Assessed: Yes Code Status: Full Code
[2025-02-06 05:46] VITALS: O2SAT 97
[2025-02-06 09:12] VITALS: BP 139/76; TEMP 98.1
--- NOTE | 2025-02-06 09:50 | P.DS ---
Admission Date: 02/05/25 Discharge Date: 02/06/25 Disposition: ROUTINE DISCHARGE Discharge Condition: GOOD Reason for Admission: Chest Pain Hospital Course: Patient was admitted for chest pain. She has a history of coronary artery di sease status post PCI to LAD. Due to her persistent chest pain, there was a concern for unstable angina. Coronary angiogram during this day revealed mild to moderate coronary artery disease, a patent posterior descending artery. Medical management was recommended moving forward. Patient is already optimized on dual antiplatelet therapy, beta-ivanna and nitrates. Her rosuvastatin will be changed to high intensity atorvastatin 80 mg. She can follow-up with cardiology Vital Signs/Physical Exam: Temp Pulse Resp BP Pulse Ox 98.1 F 69 16 139/76 94 02/06/25 08:00 02/06/25 08:00 02/06/25 08:00 02/06/25 08:00 02/06/25 08:00 General: Alert, In no apparent distress, Cooperative HEENT: Atraumatic, Normocephalic Respiratory: Clear to auscultation bilaterally, Normal air movement Cardiovascular: No edema, Normal pulses, Regular rate/rhythm, Normal S1 S2, Other (Right groin site looks clean and dry. No hematoma) Neurological: Normal speech Laboratory Data at Discharge: WBC 7.90 thou/uL (4.3-10.9) 02/05/25 05:53 Hgb 10.6 g/dL (12.0-15.0) L 02/05/25 05:53 Hct 32.4 % (36.0-45.0) L 02/05/25 05:53 Plt Count 275 thou/uL (152-406) 02/05/25 05:53 PT 11.7 SECONDS (10-13.0) 02/03/25 22:11 INR 1.04 02/03/25 22:11 Sodium 137 mEq/L (136-145) 02/05/25 05:53 Potassium 4.0 mEq/L (3.5-5.1) 02/05/25 05:53 BUN 8 mg/dL (7-18) 02/05/25 05:53 Creatinine 0.66 mg/dL (0.55-1.02) 02/05/25 05:53 Glucose 96 mg/dL (74-106) 02/05/25 05:53 Magnesium 1.9 mg/dL (1.6-2.4) 02/03/25 22:11 Total Bilirubin 0.2 mg/dL (0.2-1.0) 02/05/25 05:53 AST 60 U/L (15-37) H 02/05/25 05:53 ALT 98 U/L (13-56) H 02/05/25 05:53 Alkaline Phosphatase 131 U/L (45-117) H 02/05/25 05:53 Lipase 30 U/L (13-75) 02/03/25 22:11 Home Medications: Aspirin [Adult Aspirin Regimen] 81 mg PO DAILY 30 Days #30 tab 12/06/23 Clopidogrel Bisulfate [Plavix*] 75 mg PO DAILY 30 Days #30 tab 12/06/23 Metoprolol Succinate [Toprol Xl*] 25 mg PO DAILY 05/11/24 Sertraline [Zoloft*] 200 mg PO DAILY 06/11/24 Isosorbide Mononitrate [Isosorbide Mononitrate ER] 90 mg PO DAILY 08/22/24 Pantoprazole Sodium [Protonix] 40 mg PO DAILY 08/22/24 haloperidoL [Haldol] 3 mg PO BEDTIME 11/28/24 hydrOXYzine HCL [Atarax] 50 mg PO PRN 11/28/24 lisinopriL [Lisinopril] 5 mg PO DAILY 11/28/24 Hydrocodone 10/APAP 325 [Pontiac 10/325*] 1 tab PO Q8H PRN #20 tab 11/29/24 Quetiapine Fumarate [Seroquel] 100 mg PO DAILY 02/04/25 Zolpidem Tartrate [Ambien] 10 mg PO DAILY 02/04/25 Atorvastatin Calcium [Lipitor] 80 mg PO BEDTIME #30 tab 02/06/25 New Medications: Atorvastatin Calcium [Lipitor] 80 mg PO BEDTIME #30 tab Followup: NONE,NONE [Primary Care Provider] - Neil Arthur MD [ACTIVE - CAN ADMIT] - 1 Week (Follow-up with cardiology in 1 week)
== END 2025-02-06 12:52 | disposition home or self-care (01) | DRG 287 ==
LOC: ER 20:12 → ERHOLD 02-04 00:34 → 2ND 02-04 12:56 → OBSVTOIN 02-05 12:25
PROVIDERS: ADMIT Family Medicine; ATTEND Internal Medicine
PROC: 4A023N7 Measurement of Cardiac Sampling and Pressure, Left Heart, Percutaneous Approach (ICD-10-PCS; principal; 2025-02-05)
PROC: B211YZZ Fluoroscopy of Multiple Coronary Arteries using Other Contrast (ICD-10-PCS; 2025-02-05)
DX: I25.110 Atherosclerotic heart disease of native coronary artery with unstable angina pectoris (principal); F32.A Depression, unspecified; F41.9 Anxiety disorder, unspecified; I25.2 Old myocardial infarction; F43.10 Post-traumatic stress disorder, unspecified; Z95.5 Presence of coronary angioplasty implant and graft; Z90.49 Acquired absence of other specified parts of digestive tract; Z79.82 Long term (current) use of aspirin; Z79.02 Long term (current) use of antithrombotics/antiplatelets; Z79.891 Long term (current) use of opiate analgesic; Z79.899 Other long term (current) drug therapy; E78.5 Hyperlipidemia, unspecified; I10 Essential (primary) hypertension
CPT/HCPCS: 36415; 71045; 76937; 80048; 80053; 80076; 80307; 81001; 83690; 83735; 83880; 84484; 85025; 85610; 93005; 93458; 94760; 96372; 99152; 99153; 99285; C1760; C1893; G0378; J0461; J1644; J1650; J2003; J2250; J2270; J2405; J3010; J7030; Q9966

== ENCOUNTER 2025-03-03 23:32 | Emergency (ER) | payer OTHER ==
--- OUTSIDE RECORDS SUMMARY | 2025-03-04 00:07 | XMS REPORT | Continuity of Care Document ---
Author Name Unknown Address [address] [facility]. [address] [place] [address] [facility] Address [address] [facility] [address] [place] [address] Support Name Relationship Address Phone RACHEL CASH Father Unknown Unavailable PHYSICIAN, NO Primary Care Physician Unknown Unav ailable MD MORA POLLOCK A Emergency Provider [address] [place] [address] JAN COX natural parent [address] [address] MD SHERIDAN MCMANUS Emergency Provider [facility], [place] [address] CHARITY ROCA Guarantor [address] [place] [address] MD RIDDHI [place] [address] MD AN IRIZARRY Emergency Provider [facility], [place] [address] MD AIDEN SOLANO A Primary Care Physician [address] [facility] 3 [place] [address] OTHER, ENTER NAME IN NOTES Primary Care Physician Unknown Unavailable MD Arelis Kern Emergency Provider [address] [place] [address] MD SHAN BUSCH Attending Provider [address] [place] [address] PIYUSH JUAREZ natural parent [address] [place] [address] Leyda Villa Mother Unknown Unavailable Rachel Cox Father [address] [address] [place] [address] one else per patient, No Emergency Contact Unknown Unavailable Rachel Cox [address] [place] [address] MD TAVARES MG JR, JR. Emergency Provider [address] [place] [address] MD DIONI TYSON Emergency Provider [id number] [place] [address] [address] [facility] Attending Provider [address] [place] [address] Unavailable JAN COX [address] [place] [address] 1 Personal Relationship Unknown Unavai lable Unavailable Personal Relationship Unknown Unavai labRachel Garza 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 Name Role Phone OTHER, ENTER NAME IN NOTES Primary Care Physicia n Unavailable VAHE DURAND Attending Clinician Unavailable CHRISTINA PAGE Attending Clinician Unavailable CYNTHIA ROMEO Attending Clinician Unavailable RIDDHI MONTES Attending Clinician Unavailable NAY ALMONTE Attending Clinician Unavailable NEO ALBARRAN Attending Clinician UnaBOB Jackson Attending Clinician Unavailable BOB GARCIA Attending Clinician Unavailable Josefa VILLANUEVA, Kiran Nino Attending Clinician [phone] ARELIS KERN Attending Clinician Unavailab le Doctor Unassigned, [place] Attending Clinician U navailable ROBERTO RICHARDS Attending Clinician Unavailable ROBERTO RICHARDS Attending Clinician Unavailable CATHY STRICKLAND Attending Clinician Unavailable MD BEHZAD Attending Clinician Unavailab Piper Jackson LVN Attending Clinician KWOK, MOHAMMAD A. Attending Clinician UnavailTATIANNA Garcia Attending Clinician Unavailable SHERIDAN MCMANUS Attending Clinician UnavailNEIL Edwards Attending Clinician Unavailable BUSHRA RIOS Attending Clinician Unavailab BUSHRA Bustamante Attending Clinician Unavailab Bob Cuadra MD Attending Clinician + [phone] KAUR SANDRA Attending Clinician Unavailab KAUR Kessler Attending Clinician Unavailab Zay Shipman MD Attending Clinician +[phone] Cris Lloyd MD, Kaur Attending Clinician [phone] Elliott Kwok MD Attending Clinician [phone] Dane Jurado MD Attending Clinician [phone] FLORINDA REYES Attending Clinician Unavailable JUANJOSE BARKER Attending Clinician Unavailable JUANJOSE BARKER Attending Clinician Unavailable Juanjose Barker MD Attending Clinician +[phone] SELENA DEL TORO Attending Clinician Unavailable GISELLE OSORIO Attending Clinician Unavailable CONRADO SMITH Attending Clinician Unavailable JÚNIOR FARRELL Attending Clinician Unavailable Saleem EDWARD Attending Clinician Unavailable Saleem EDWARD Attending Clinician Unavailable Saleem Perez Attending Clinician [phone] RADIOLOGY, DEPT Attending Clinician Unavailable SANDY GARCIA Attending Clinician Unavailable SANDY GARCIA Attending Clinician Unavailable Sandy Walker Attending Clinician + [phone] RAFAL WRIGHT Attending Clinician Unavailable Rafal Wright PA-C Attending Clinician + [phone] Attending Clinician Unavailable Tammy Roy MD Attending Clinician + FARTUN GILLESPIE Attending Clinician Unavailable TAVARES MG JR Attending Clinician Ari Rojo NP, Jacque Attending Clinician [phone] COSMO Attending Clinician Unavailable SHAN BUSCH Attending Clinician Unavailable RIDDHI MYLES Attending Clinician UnavailAN Garcia Attending Clinician Unavailable KLAUDIA NARVAEZ Attending Clinician Unavailable Klaudia Narvaez DO Attending Clinician +[phone] PADGETT, APPLE S Attending Clinician Unavailable Dayron PATRICIA, Apple S Attending Clinician [phone] ZAY MONTERO Attending Clinician Unavailable Leeanne Wise NP Attending Clinician +-[phone] Zay Montero MD Attending Clinician +09 FELTON Attending Clinician Unavailable MELIDA LONGORIA Attending Clinician Unavailable Melida Longoria MD Attending Clinician +[phone] WIL MCQUEEN Attending Clinician Unavailable Wil Joseph Attending Clinician +03 APPLE WANG Attending Clinician Unavaila ble Felipe VIDEO SPECIALIST, Apple F Attending Clinician [phone] Doctor Unassigned, [place] Attending Clinician U navailable CEM CHOI Attending Clinician Unavailable Cem Choi MD Attending Clinician [phone] Shelley Rosas RN Attending Clinician +[phone] Mo VIDEO SPECIALIST, Bal Attending Clinician +[phone] BAL HASSAN Attending Clinician Unavailable EbrahiTremaine Lino Attending Clinician [phone] TREMAINE BECERRA Attending Clinician Unavailable LEEANNE WISE Attending Clinician Unavailable MORA POLLOCK Attending Clinician Unavailable Claudia VILLANUEVA, Best R Attending Clinician [phone] BEST TAYLOR Attending Clinician Unavailable Marbella iRzo RN Attending Clinician Unavailab bailee MEDINAP, Abdias Attending Clinician +[phone] ABDIAS ROBERTSON Attending Clinician Unavailable Silver RAMIREZ, Kamryn Ayala Attending Clinician Unavail able ZAC, SINCERE Attending Clinician Unavailable GUMARO ALVAREZ Attending Clinician [...] Unavailable BOB GARCIA Admitting Clinician Unavailable ROBERTO RICAHRDS Admitting Clinician Unavailable SHAN BUSCH Admitting Clinician Unavailable RIDDHI MYLES Admitting Clinician UnaKLAUDIA Suárez Admitting Clinician Unavailable ZAY MONTERO Admitting Clinician Unavailable Zay Montero MD Admitting Clinician [phone] FELTON Admitting Clinician Unavailable MELIDA LONGORIA Admitting Clinician Unavailable WIL MCQUEEN Admitting Clinician Unavailable APPLE WANG Admitting Clinician UnavailCEM Womack Admitting Clinician Unavailable TREMAINE BECERRA Admitting Clinician Unavailable LEEANNE WISE Admitting Clinician Unavailable Saleem EDWARD Admitting Clinician Unavailable BEST TAYLOR Admitting Clinician Unavailable ABDIAS ROBERTSON Admitting Clinician Unavailable Payers Payer Name Policy Type Policy Number Effective Date Expirati on Date Source [address] 94 9 [id number] 2025 00:00:00 RAMSES Caro/ KELLEE BRITTON [id number] 2023 00:00:00 [facility] [id number] 2020 00:00:00 Problems Condition Name Condition Details Condition Category Status Onset Date Resolution Date Last Treatment Date Treating Clinician Comments Source 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 Disease Active 01-07 00:00: 00 Kellee Buckley - Shobha pinedo 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 2025-0 7-03 00:00: 00 Kellee Buckley - Externa l Coronary artery disease involving [place] coronary artery of [place] heart with angina pectoris Coronary artery disease involving [place] coronary artery of [place] heart with angina pectoris Disease Active 11-01 00:00: 00 [facility] Dyslipidem ia Dyslipidem ia Disease Active 11-01 00:00: 00 [facility] Generalize d abdominal pain Generalize d abdominal pain Disease Active 2023-07 0- 00:00: 00 [facility] Coronary artery disease Coronary artery disease Disease Active 12-12 00:00: 00 Kellee Buckley - Externa l Status post arterial stent Status post arterial stent Disease Active 12-12 00:00: 00 Kellee Buckley - Externa lee MICAH (generaliz ed anxiety disorder) MICAH (generaliz ed anxiety disorder) Disease Active 12-02 00:00: 00 Kellee Buckley - Externa lee Severe episode of recurrent major depressive disorder, 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, 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) Disease Active 12-02 00:00: 00 Kellee Buckley - Externa lee PTSD (post-trau matic stress disorder) PTSD (post-trau matic stress disorder) Disease Active 12-02 00:00: 00 Kellee Buckley - Externa l Elevated brain natriureti c peptide (BNP) level Elevated brain natriureti c peptide (BNP) level Disease Active 2020-07 0-02 00:00: 00 [facility] Cigarette smoker Cigarette smoker Disease Active 2020-07 0-02 00:00: 00 [facility] Family history of early CAD Family history of early CAD Disease Active 2020-07 0-02 00:00: 00 [facility] Essential hypertensi on Essential hypertensi on Disease Active 2020-07 0-02 00:00: 00 [facility] Elevated brain natriureti c peptide (BNP) level Elevated brain natriureti c peptide (BNP) level Disease Active 2020-07 0-02 00:00: 00 [facility] Snores Snores Disease Active 2020-07 0 00:00: 00 [facility] Morbid obesity with body mass index of 40.0-49.9 Morbid obesity with body mass index of 40.0-49.9 Disease Active 2020-07 0 00:00: 00 [facility] No known active problems No known active problems Disease [facility] Bilateral flank pain Problem [facility] Chest wall pain [facility]alemi a [facility] Nausea [facility] Hematuria Problem [facility] Renal colic Problem [facility] Abdominal pain Problem [facility] Acute coronary syndrome without high troponin Problem [facility] Adrenal mass Problem [facility] Adren[facility] nodule [facility] Encounter for counseling regarding advance directives Problem [facility] Allergic rhinitis Problem [facility] Angina pectoris Problem [facility] Anxiety and depression Problem [facility] Chest pain Problem [facility] Gastroente ritis Problem [facility] Malaise Problem [facility] Otitis externa of left ear Problem [facility] Cyst of ovary Problem [facility] Post traumatic stress disorder (PTSD) [facility] Tobacco abuse Problem [facility] Urinary tract infection Problem [facility] Allergies, Adverse Reactions, Alerts Allergy Name Allergy Type Status Severity Reaction(s) Onset Date Inactive Date Treating Clinician Comments Source NO KNOWN ALLERGIE S Drug Class Active [facility] Social History Social Habit Start Date Stop Date Quantity Comments Source Gender identity [facility] ASSERTION Possible [facility] History of Occupation [facility] Sexual orientation Saleem Buckley - External Alcoholic beverage intake 2025-01-07 00:00:00 2025-01-07 00:00:00 Current drinker of alcohol (finding) Kellee Buckley - External History of tobacco use 2024-11-12 00:00:00 Passive smoker [facility] History of Social function 2023-10-28 00:00:00 2023-10-28 00:00:00 Kellee Buckley - External Alcohol Comment 2023-10-28 00:00:00 2023-10-28 00:00:00 rarely Kellee Leiva External Cigarettes smoked current (pack per day) [...] cigarettes/ day from 2 packs per day [facility] Exposure to SARS-CoV-2 (event) 2021-12-30 00:00:00 2022-01-09 16:34:00 Unable to assess [facility] Education 2021-04-07 00:00:00 2021-04-07 00:00:00 13 [facility] Sex assigned at 1980 00:00:00 1980 00:00:00 Kellee Davies Smoking Status Start Date Stop Date Source Ex-smoker 2024-11-26 00:00:00 2024-11-26 [facility] 2023-10-28 00:00:00 Kellee Buckley - External Unknown if ever smoked [facility] Medications Ordered Medication Name Filled Medication Name Start Date Stop Date Current Medication? Ordering Clinician Indication Dosage Frequency Signature (SIG) Comments Components Source Sertraline HCl 200 MG oral Capsule 01-07 15:07: 38 Yes 1{capsu le} QD Take 1 capsule by mouth daily. Kellee pinedo Quetiapine Fumarate 100 MG oral Tablet 01-07 00:00: 00 Yes [id number] 100mg QD Take 1 tablet (100 mg total) by mouth nightly. Kellee pinedo Quetiapine Fumarate 50 MG oral Tablet 12-18 00:00: 00 01-07 00:00 :00 No 50mg Take 1 tablet (50 mg total) by mouth at bedtime. Kellee pinedo Trazodone HCl 100 MG oral Tablet 12-16 00:00: 00 01-07 00:00 :00 No [id number] 100mg QD Take 1 tablet (100 mg total) by mouth nightly. Kellee pinedo Zolpidem Tartrate (Ambien) 10 MG oral Tablet 12-16 00:00: 00 01-07 00:00 :00 No [id number] 10mg QD Take 1 tablet (10 mg total) by mouth nightly as needed for sleep. Kellee pinedo ketorolac (TORADOL) injection 15 mg 12-14 22:15: 00 12-14 21:34 :00 No 15mg 15 mg, Slow IV Push, ONCE, 1 dose, On Sat12/14/24 at 1715, Routine [facility] iopamidol (ISOVUE 370-500 mL) injection 85 mL 12-14 21:30: 00 12-14 21:30 :00 No [id number] 85mL 85 mL, Intravenou s, ONCE, 1 dose, On Sat12/14/24 at 1630, Routine [facility] acetaminoph en (OFIRMEV) IV piggyback 1,000 mg 12-14 19:45: 00 12-14 19:22 :00 No 1000mg 1,000 mg, IV Piggyback, at 400 mL/hr Administer over 15 Minutes, ONCE, 1 dose, On Sat12/14/24 at 1445, Routine, Is the patient strict NPO and unable to tolerate oral medication s? No [facility] methocarbam oL (ROBAXIN) injection 1,000 mg 12-14 19:45: 00 12-14 19:11 :00 No 1000mg 1,000 mg, Slow IV Push, Administer over 3-5 Minutes, ONCE, 1 dose, On Sat12/14/24 at 1445, Routine [facility] ondansetron (ZOFRAN (PF)) injection 4 mg 12-14 19:00: 00 12-14 19:10 :00 No 4mg 4 mg, Slow IV Push, ONCE, 1 dose, On Sat12/14/24 at 1400, Administer over 2-5 Minutes, 2 mL [facility] Meloxicam (Meloxicam 15 Mg) 15 Mg TAB Meloxicam (Meloxicam 15 Mg) 15 Mg TAB 12-10 21:17: 00 Yes 1 [facility] Tizanidine Hcl (Zanaflex 4 Mg*) 4 Mg TAB Tizanidine Hcl (Zanaflex 4 Mg*) 4 Mg TAB 12-10 21:17: 00 Yes 8 [facility] acetaminoph en (TYLENOL) tablet 975 mg 12-09 03:15: 00 12-09 02:28 :00 No 975mg 975 mg, Oral, ONCE, 1 dose, On Sat12/08/24 at 2215, ROSELYN [facility] ondansetron (ZOFRAN (PF)) injection 4 mg 12-09 03:00: 00 12-09 01:51 :00 No 4mg 4 mg, Slow IV Push, ONCE, 1 dose, On Sat12/08/24 at 2200, 2 mL [facility] hydrOXYzine HCl 10 MG oral Tablet 12-03 00:00: 00 01-07 00:00 :00 No 10mg QD Take 1 tablet (10 mg total) by mouth daily. Kellee pinedo Zolpidem Tartrate (Ambien) 5 MG oral Tablet 12-02 00:00: 00 12-16 00:00 :00 No [id number] 5mg QD Take 1 tablet (5 mg total) by mouth nightly as needed for sleep. Kellee pinedo HYDROcodone -Acetaminop hen 10-325 MG oral Tablet 11-29 00:00: 00 01-07 00:00 :00 No Kellee pinedo rosuvastati n (CRESTOR) tablet 40 mg 11-28 02:00: 00 11-27 18:39 :12 No 40mg [facility] enoxaparin (LOVENOX) injection 40 mg 11-27 22:00: 00 11-27 18:39 :12 No 40mg 40 mg, Subcutaneo us, DAILY AT 1700, First dose on Sat11/27/24 at 1700, Until Discontinu ed, Routine [facility] KCL (KLOR-CON M20) tablet 40 mEq KCL (KLOR-CON M20) tablet 40 mEq 11-27 17:45: 00 11-27 17:08 :00 No 40meq 40 mEq, Oral, ONCE, 1 dose, On Sat11/27/24 at 1245, Routine [facility] magnesium oxide (MAG-OX 400) 400 mg (241.3 mg magnesium) tablet 400 mg magnesium oxide (MAG-OX 400) 400 mg (241.3 mg magnesium) tablet 400 mg 11-27 17:00: 00 11-27 18:39 :12 No 400mg 400 mg, Oral, DAILY, First dose on Sat11/27/24 at 1200, Until Discontinu ed, [facility] (PRINIVIL,Z ESTRIL) tablet 40 mg lisinopriL (PRINIVIL,Z ESTRIL) tablet 40 mg 11-27 14:00: 00 11-27 18:39 :12 No 40mg 40 mg, Oral, DAILY, First dose on Sat11/27/24 at 0900, Until Discontinu ed [facility] isosorbide mononitrate (IMDUR) 24 hr tablet 60 mg isosorbide mononitrate (IMDUR) 24 hr tablet 60 mg 11-27 14:00: 00 11-27 18:39 :12 No 60mg 60 mg, Oral, DAILY, First dose on Sat11/27/24 at 0900, Until Discontinu ed, Routine [facility] clopidogreL (PLAVIX) 75 mg tablet 75 mg clopidogreL (PLAVIX) 75 mg tablet 75 mg 11-27 14:00: 00 11-27 18:39 :12 No 75mg 75 mg, Oral, DAILY, First dose on Sat11/27/24 at 0900, Until Discontinu ed, Routine, geosciences faculty member approving Restricted medication : ALEXX KWOK [facility] aspirin chewable tablet 81 mg aspirin chewable tablet 81 mg 11-27 14:00: 00 11-27 18:39 :12 No 81mg 81 mg, Oral, DAILY, First dose on Sat11/27/24 at 0900, Until Discontinu ed, Routine [facility] ALPRAZolam 2 mg 24 hr tablet 11-27 13:39: 12 Yes 2mg Take 1 tablet by mouth in the morning and 1 tablet in the evening. [facility] methocarbam oL (ROBAXIN) tablet 500 mg methocarbam oL (ROBAXIN) tablet 500 mg 11-27 13:00: 00 11-27 18:39 :12 No 500mg 500 mg, Oral, QID, First dose on Sat11/27/24 at 0800, Until Discontinu ed, Routine [facility] metoprolol tartrate (LOPRESSOR) tablet 12.5 mg metoprolol tartrate (LOPRESSOR) tablet 12.5 mg 11-27 13:00: 00 11-27 18:39 :12 No 12.5mg 12.5 mg, Oral, BID, First dose on Sat11/27/24 at 0800, Until Discontinu ed, Routine [facility] famotidine (PEPCID AC) tablet 20 mg famotidine (PEPCID AC) tablet 20 mg 11-27 13:00: 00 11-27 18:39 :12 No 20mg 20 mg, Oral, BID, First dose on Sat11/27/24 at 0800, Until Discontinu ed, Routine [facility] hydrOXYzine (ATARAX) tablet 50 mg 11-27 04:35: 56 11-27 18:39 :12 No 50mg [facility] ALPRAZolam (XANAX) tablet 1 mg 11-27 04:35: 16 11-27 18:39 :12 No 1mg [facility] NaCl 0.9% (NS) IV infusion 1,000 mL 11-27 03:00: 00 11-27 18:39 :12 No 1000mL at 50 mL/hr, IV Infusion, CONTINUOUS , Starting on Sat11/26/24 at 2200, Until Sat11/27/24 at 1339, Routine [facility] ondansetron (ZOFRAN (PF)) injection 4 mg 11-27 02:49: 22 11-27 18:39 :12 No 4mg 4 mg, Slow IV Push, Q6HPRN, Starting on Sat11/26/24 at 2149, Until Sat11/27/24 at 1339, Administer over 2-5 Minutes, 2 mL [facility] morpHINE (4 mg/mL) injection 4 mg morpHINE (4 mg/mL) injection 4 mg 11-27 02:49: 19 11-27 17:19 :29 No 4mg 4 mg, Slow IV Push, Q6HPRN, Starting on Sat11/26/24 at 2149, Until Sat11/27/24 at 1219, Routine, Pain (scale 7-10) [facility] HYDROcodone -acetaminop hen (NORCO 5) tablet 1 tablet HYDROcodone -acetaminop hen (NORCO 5) tablet 1 tablet 11-27 02:49: 09 11-27 17:19 :29 No 1{tbl} 1 tablet, Oral, Q6HPRN, Starting on Sat11/26/24 at 2149, Until Sat11/27/24 at 1219, Routine, Pain (scale 4-6) [facility] acetaminoph en (TYLENOL) tablet 650 mg 11-27 02:49: 07 11-27 18:39 :12 No 650mg 650 mg, Oral, Q6HPRN, Starting on Sat11/26/24 at 2149, Until Sat11/27/24 at 1339, Routine, Pain (scale 1-3) Univers [facility] HYDROcodone -acetaminop hen (NORCO) 10-325 mg tablet 1 tablet 11-27 02:30: 00 11-27 02:47 :00 No 1{tbl} 1 tablet, Oral, ONCE NOW, 1 dose, On Sat11/26/24 at 2130, [facility] nitro[facility] in (NITROL) 2 % ointment 1 Inch nitroglycer in (NITROL) 2 % ointment 1 Inch 11-27 02:15: 00 11-27 04:13 :00 No 1[in_us ] 1 Inch, Transderma l (Apply To Skin), ONCE NOW, 1 dose, On Sat11/26/24 at 2115, Routine [facility] haloperidoL (HALDOL) tablet 2 mg 11-27 01:30: 00 11-27 18:39 :12 No 2mg 2 mg, Oral, QHS, First dose on Sat11/26/24 at 2030, Until Discontinu ed, Routine [facility] ondansetron (ZOFRAN (PF)) injection 4 mg 11-27 01:00: 00 11-27 00:06 :00 No 4mg 4 mg, Slow IV Push, ONCE, 1 dose, On Sat11/26/24 at 2000, 2 mL [facility] morpHINE (4 mg/mL) injection 4 mg 11-27 01:00: 00 11-27 00:07 :00 No 4mg 4 mg, Slow IV Push, ONCE, 1 dose, On Sat11/26/24 at 2000, STAT [facility] NaCl 0.9% (NS) bolus infusion 500 mL 11-27 00:15: 00 11-27 01:22 :00 No 500mL at 999 mL/hr, 500 mL, IV Infusion, ONCE, 1 dose, On Esperanza 11/26/24 at 1915, STAT [facility] Methocarbam ol 750 MG oral Tablet 11-21 00:00: 00 Yes [id number] 750mg QD Take 1 tablet (750 mg total) by mouth daily. Kellee pinedo Aspirin (Aspirin Low Dose) 81 MG oral Tablet Delayed Response 11-16 00:00: 00 Yes [id number] 81mg QD TAKE 1 TABLET BY MOUTH EVERY DAY Kellee pinedo ibuprofen (IBU) tablet 600 mg 11-15 02:30: 00 11-15 02:21 :00 No 600mg 600 mg, Oral, ONCE, 1 dose, On 11/14/24 at 2130, ROSELYN [facility] Ciprofloxac in HCl (Cipro) 500 MG oral Tablet 11-15 00:00: 00 11-23 04:59 :00 No [id number] 500mg Q.5D Take 1 tablet (500 mg total) by mouth 2 times daily for 7 days. Kellee pinedo KCL (KLOR-CON M20) tablet 40 mEq 11-11 06:15: 00 11-11 05:28 :00 No 40meq 40 mEq, Oral, ONCE, 1 dose, On Sat11/11/24 at 0115, Routine [facility] iopamidol (ISOVUE 370-500 mL) injection 80 mL 11-11 05:00: 00 11-11 05:00 :00 No [id number] 80mL 80 mL, Intravenou s, ONCE, 1 dose, On Sat11/11/24 at 0000, Routine [facility] morpHINE (4 mg/mL) injection 4 mg 11-11 04:30: 00 11-11 04:29 :00 No 4mg 4 mg, Slow IV Push, ONCE, 1 dose, On Tu11/10/24 at 2330, STAT [facility] ondansetron (ZOFRAN (PF)) injection 4 mg 11-11 02:00: 00 11-11 02:32 :00 No 4mg 4 mg, Slow IV Push, ONCE, 1 dose, On Sat11/10/24 at 2100, Administer over 2-5 Minutes, 2 mL [facility] morpHINE (4 mg/mL) injection 4 mg 11-11 02:00: 00 11-11 02:29 :00 No 4mg 4 mg, Slow IV Push, ONCE, 1 dose, On Sat11/10/24 at 2100, [facility] Haloperidol 2 MG oral Tablet 11-06 00:00: [...] 1 dose, On Sat11/04/24 at 1245, Routine [facility] magnesium sulfate in water 4 gram/50 mL (8 %) IV Piggyback 4 g magnesium sulfate in water 4 gram/50 mL (8 %) IV Piggyback 4 g 11-04 16:00: 00 11-04 19:04 :00 No 4g 4 g, IV Piggyback, at 25 mL/hr Administer over 120 Minutes, ONCE, 1 dose, On Sat11/04/24 at 1100, Routine [facility] clopidogreL 75 mg tablet 11-04 15:24: 11 Yes 75mg Take 1 tablet by mouth in the morning. [facility] aspirin 81 mg EC tablet 11-04 15:24: 11 Yes 81mg Take 1 tablet by mouth in the morning. [facility] isosorbide mononitrate 60 mg 24 hr tablet 11-04 15:24: 11 Yes 60mg Take 1 tablet by mouth in the morning. [facility] hydrOXYzine 50 mg tablet 11-04 15:24: 11 Yes 50mg Take 1 tablet by mouth every 12 hours as needed for Anxiety. [facility] haloperidoL 2 mg tablet 11-04 15:24: 11 Yes 2mg Take 1 tablet by mouth at bedtime. [facility] rosuvastati n 20 mg tablet 11-04 15:24: 10 11-04 00:00 :00 No 20mg Take 1 tablet by mouth at bedtime. [facility] Rosuvastati n Calcium 40 MG oral Tablet 11-04 00:00: 00 Yes 40mg Take 1 tablet (40 mg total) by mouth at bedtime. Kellee pinedo Metoprolol Tartrate (LOPRESSOR) 25 MG oral Tablet 11-04 00:00: 00 01-07 00:00 :00 No TAKE 1/2 TABLET BY MOUTH IN THE MORNING AND 1/2 TABLET IN THE EVENING Kellee pinedo aminophyllguerrero ne 50 mg in NaCl 0.9% (NS) 2 mL piggyback 11-03 19:44: 46 11-03 20:03 :14 No ONCE INTRA PROCEDURE, Starting on Sat11/03/24 at 1444, Until Sat11/03/24 at 1503, CV Intraproce dure [facility] adenosine diagnostic (ADENOSCAN) injection 11-03 19:10: 54 11-03 20:03 :14 No CONTINUOUS PRN, Starting on Sat11/03/24 at 1410, Until Sat11/03/24 at 1503, Routine, CV Intraproce dure [facility] heparin 1,000 unit/mL injection 11-03 18:45: 11 11-03 20:03 :14 No ONCE INTRA PROCEDURE, Starting on Sat11/03/24 at 1345, Until Sat11/03/24 at 1503, Routine, CV Intraproce dure [facility] nitroglycer in (TRIDIL) 2 mg in 10 mL D5W for Cardiac Cath 11-03 18:29: 27 11-03 20:03 :14 No ONCE INTRA PROCEDURE, Starting on Sat11/03/24 at 1329, Until Sat11/03/24 at 1503, Routine, CV Intraproce dure [facility] lidocaine 1% (PF) (XYLOCAINE) injection 11-03 18:13: 12 11-03 20:03 :14 No ONCE INTRA PROCEDURE, Starting on Sat11/03/24 at 1313, Until Sat11/03/24 at 1503, Routine, CV Intraproce dure [facility] midazolam (VERSED) 1 mg/mL injection 11-03 18:12: 08 11-03 20:03 :14 No ONCE INTRA PROCEDURE, Starting on Sat11/03/24 at 1312, Until Sat11/03/24 at 1503, Routine, CV Intraproce dure [facility] FENTanyl (PF) (SUBLIMAZE) injection 11-03 18:11: 52 11-03 20:03 :14 No ONCE INTRA PROCEDURE, Starting on Sat11/03/24 at 1311, Until Sat11/03/24 at 1503, Routine, CV Intraproce dure [facility] metoprolol tartrate (LOPRESSOR) tablet 12.5 mg metoprolol tartrate (LOPRESSOR) tablet 12.5 mg 11-03 13:00: 00 11-04 22:34 :20 No 12.5mg 12.5 mg, Oral, BID, First dose on Sat11/03/24 at 0800, Until Discontinu ed, Routine [facility] famotidine (PEPCID AC) tablet 20 mg famotidine (PEPCID AC) tablet 20 mg 11-02 14:00: 00 11-04 20:24 :12 No 20mg 20 mg, Oral, DAILY, First dose (after last modificati on) on Sat11/02/24 at 0900, Until Discontinu ed, Routine [facility] rosuvastati n (CRESTOR) tablet 40 mg rosuvastati n (CRESTOR) tablet 40 mg 11-02 02:00: 00 11-04 22:34 :20 No 40mg 40 mg, Oral, QHS, First dose (after last modificati on) on Sat11/01/24 at 2100, Until Discontinu ed, Routine [facility] haloperidoL (HALDOL) tablet 2 mg haloperidoL (HALDOL) tablet 2 mg 11-02 02:00: 00 11-04 20:24 :11 No 2mg 2 mg, Oral, QHS, First dose on Sat11/01/24 at 2100, Until Discontinu ed, Routine [facility] morpHINE injection 2 mg morpHINE injection 2 mg 11-02 00:15: 06 11-04 16:59 :14 No 2mg 2 mg, Slow IV Push, Q4HPRN, Starting on Sat11/01/24 at 1915, Until Sat11/04/24 at 1159, Routine, Chest pain, Pain (scale 7-10) [facility] HYDROcodone -acetaminop hen (NORCO 5) tablet 1 tablet HYDROcodone -acetaminop hen (NORCO 5) tablet 1 tablet 11-02 00:14: 58 11-04 16:59 :14 No 1{tbl} 1 tablet, Oral, Q6HPRN, Starting on Sat11/01/24 at 1914, Until Sat11/04/24 at 1159, Routine, Pain (scale 4-6) [facility] morpHINE injection 4 mg morpHINE injection 4 mg 11-01 23:25: 45 11-01 23:34 :04 No 4mg 4 mg, Slow IV Push, Q4HPRN, Starting on Sat11/01/24 at 1825, Until Sat11/01/24 at 1834, Routine, Chest pain [facility] acetaminoph en (TYLENOL) tablet 650 mg 11-01 23:14: 29 11-04 20:24 :12 No 650mg [facility] morpHINE (4 mg/mL) injection 4 mg morpHINE (4 mg/mL) injection 4 mg 11-01 17:39: 53 11-01 23:25 :45 No 4mg 4 mg, Slow IV Push, Q4HPRN, Starting on Sat11/01/24 at 1239, Until Sat11/01/24 at 1825, Routine, Chest pain [facility] nitroglycer in (NITROSTAT) sublingual tablet 0.4 mg nitroglycer in (NITROSTAT) sublingual tablet 0.4 mg 11-01 17:35: 41 11-04 20:24 :12 No .4mg 0.4 mg, Sublingual , Q5MIN PRN, Starting on Sat11/01/24 at 1235, Until Sat11/04/24 at 1524, Routine, Chest pain [facility] heparin 25,000 Units/250 mL (Premixed Bag) in 0.45 % NS heparin 25,000 Units/250 mL (Premixed Bag) in 0.45 % NS 11-01 17:30: 11-03 21:07 :34 No 0U/h 0-2,750 Units/hr [...] ant therapy. Range, Dosing and Testing: FOR [facility], AND [facility] ONLY - aPTT < 35: Bolus 5000 [...] once therapeuti c levels are reached. FOR [facility] ONLY - aPTT < 40: Bolus [...] ADJUST INITIAL BOLUS OR INITIAL INFUSION RATE. [facility] HEPARIN SODIUM (PORCINE) 1,000 UNIT/ML BOLUS ACS ORDER SET [id number] 1971-0 4-27 17:30: 00 11-01 19:27 :00 No 4000U 4,000 Units, IV Push, ONCE, 1 dose, On Sat11/01/24 at 1230, ROSELYN [facility] heparin (1,000 unit/mL, 10 mL vial) for Rebolusing [id number] [id number] 4-27 17:27: 37 11-04 20:24 :12 No 3000U FOR REBOLUSING , Starting on Sat11/01/24 at 1227, Until Sat11/04/24 at 1524, Routine, Dosing based on aPTT testing parameters (refer to continuous heparin drip order). [facility] lisinopriL (PRINIVIL,Z ESTRIL) tablet 40 mg lisinopriL (PRINIVIL,Z ESTRIL) tablet 40 mg 11-01 14:00: 00 11-04 22:34 :20 No 40mg 40 mg, Oral, DAILY, First dose on Sat11/01/24 at 0900, Until Discontinu ed, Routine [facility] isosorbide mononitrate (IMDUR) 24 hr tablet 60 mg isosorbide mononitrate (IMDUR) 24 hr tablet 60 mg 11-01 14:00: 00 11-04 20:24 :11 No 60mg 60 mg, Oral, DAILY, First dose on Sat11/01/24 at 0900, Until Discontinu ed, Routine [facility] aspirin EC tablet 81 mg aspirin EC tablet 81 mg 11-01 14:00: 00 11-04 20:24 :11 No 81mg 81 mg, Oral, DAILY, First dose on Sat11/01/24 at 0900, Until Discontinu ed, Routine [facility] clopidogreL (PLAVIX) 75 mg tablet 75 mg clopidogreL (PLAVIX) 75 mg tablet 75 mg 11-01 14:00: 00 11-04 20:24 :11 No 75mg 75 mg, Oral, DAILY, First dose on Sat11/01/24 at 0900, Until Discontinu ed, Routine [facility] enoxaparin (LOVENOX) injection 40 mg enoxaparin (LOVENOX) injection 40 mg 11-01 14:00: 00 11-01 17:27 :16 No 40mg 40 mg, Subcutaneo us, DAILY, First dose on Sat11/01/24 at 0900, Until Discontinu ed, Routine [facility] perflutren protein-A microsphr (OPTISON) injection 3 mL 11-01 13:45: 00 11-01 13:45 :00 No [id number] 3mL 3 mL, IV Push, ONCE, 1 dose, On Sat11/01/24 at 0845, Routine [facility] famotidine (PEPCID AC) tablet 20 mg famotidine (PEPCID AC) tablet 20 mg 11-01 13:00: 00 11-02 00:40 :46 No 20mg 20 mg, Oral, BID, First dose on Sat11/01/24 at 0800, Until Discontinu ed, Routine [facility] morphine (2 mg/mL) injection 2 mg morphine (2 mg/mL) injection 2 mg 11-01 10:00: 00 11-01 09:28 :00 No 2mg 2 mg, Slow IV Push, ONCE, 1 dose, On Sat11/01/24 at 0500, Routine [facility] NaCl 0.9% (NS) IV infusion 1,000 mL 11-01 09:30: 00 11-02 16:23 :00 No 1000mL at 75 mL/hr, IV Infusion, ONCE, 1 dose, On Sat11/01/24 at 0430, Routine [facility] ALPRAZolam (XANAX) tablet 1 mg [id number] 4-27 06:46: 25 11-01 23:35 :16 No 1mg 1 mg, Oral, BIDPRN, Starting on 11/01/24 at 0146, Until 11/01/24 at 1835, Routine, Anxiety [facility] methocarbam oL (ROBAXIN) tablet 500 mg methocarbam oL (ROBAXIN) tablet 500 mg 11-01 06:45: 47 11-04 20:24 :11 No 500mg 500 mg, Oral, Q6HPRN, Starting on 11/01/24 at 0145, Until Sat11/04/24 at 1524, Routine, Muscle Spasms [facility] ketorolac (TORADOL) injection 15 mg ketorolac (TORADOL) injection 15 mg 11-01 04:50: 40 11-01 23:34 :04 No 15mg 15 mg, Slow IV Push, Q6HPRN, Starting on 10/31/24 at 2350, Until 11/01/24 at 1834, Routine, Pain (scale 7-10) [facility] ondansetron (ZOFRAN (PF)) injection 4 mg ondansetron (ZOFRAN (PF)) injection 4 mg 11-01 04:50: 11 11-04 20:24 :11 No 4mg 4 mg, Slow IV Push, Q6HPRN, Starting on 10/31/24 at 2350, Until 11/04/24 at 1524, Administer over 2-5 Minutes, 2 mL [facility] morpHINE (4 mg/mL) injection 4 mg 11-01 04:15: 00 11-01 04:06 :00 No 4mg 4 mg, Slow IV Push, ONCE, 1 dose, On 10/31/24 at 2315, STAT [facility] maalox/diph enhydrAMINE :lidocaine2 %viscous 1:1:1: suspension (COMPOUNDED ) 11-01 04:15: 00 11-01 04:06 :00 No 15mL 15 mL, Oral, ONCE, 1 dose, On 10/31/24 at 2315, Routine [facility] morpHINE (4 mg/mL) injection 4 mg 11-01 03:15: 00 11-01 03:10 :00 No 4mg 4 mg, Slow IV Push, ONCE, 1 dose, On 10/31/24 at 2215, STAT [facility] ondansetron (ZOFRAN (PF)) injection 4 mg 11-01 03:15: 00 11-01 03:12 :00 No 4mg 4 mg, Slow IV Push, ONCE, 1 dose, On 10/31/24 at 2215, Administer over 2-5 Minutes, 2 mL [facility] nitroglycer in (NITROSTAT) sublingual tablet 0.4 mg 11-01 03:15: 00 11-01 02:58 :00 No .4mg 0.4 mg, Sublingual , ONCE, 1 dose, On 10/31/24 at 2215, ROSELYN [facility] iopamidol (ISOVUE 370-500 mL) injection 100 mL 10-24 04:30: 00 10-24 04:30 :00 No [id number] 100mL 100 mL, Intravenou s, ONCE, 1 dose, On Sat10/23/24 at 2330, Routine [facility] cefTRIAXone (ROCEPHIN) 1,000 mg in water for injection, sterile 10 mL IV Push 10-24 03:00: 00 10-24 02:54 :00 No 1000mg 1,000 mg, Intravenou s, ONCE, 1 dose, On Sat10/23/24 at 2200, 10 mL, Reason for Anti-Infec tive: Empiric Therapy for Suspected Infection, Empiric Therapy Site: Urine, Duration of therapy: Once (ED) [facility] NaCl 0.9% (NS) bolus infusion 1,000 mL 10-24 01:30: 00 10-24 04:03 :00 No 1000mL at 999 mL/hr, 1,000 mL, IV Infusion, ONCE, 1 dose, On Sat10/23/24 at 2029, STAT [facility] ondansetron (ZOFRAN (PF)) injection 4 mg 10-24 01:30: 00 10-24 02:26 :00 No 4mg 4 mg, Slow IV Push, ONCE, 1 dose, On Sat10/23/24 at 2029, Administer over 2-5 Minutes, 2 mL [facility] morpHINE (4 mg/mL) injection 6 mg 10-24 01:30: 00 10-24 02:22 :00 No 6mg 6 mg, Slow IV Push, ONCE, 1 dose, On Sat10/23/24 at 2029, STAT [facility] Cefdinir 300 MG oral Capsule 10-24 [...] 10-23 10:46: 10 10-23 00:00 :00 No [id number] 50mg Q.5D Take 1 capsule (50 mg total) by mouth as needed in the morning and 1 capsule (50 mg total) as needed in the evening for anxiety. Kellee pinedo Sertraline HCl 200 MG oral Capsule 10-23 10:16: 17 Yes 1{capsu le} QD Take 1 capsule by mouth daily. Kellee pinedo hydrOXYzine Pamoate 50 MG oral Capsule 10-23 00:00: 00 Yes [id number] 50mg Q.5D Take 1 capsule (50 mg total) by mouth as needed in the morning and 1 capsule (50 mg total) as needed in the evening for anxiety. Kellee pinedo Ascorbic Acid (Vitamin C) 250 MG oral Tablet 10-23 00:00: 00 Yes [id number] 250mg QD Take 1 tablet (250 mg total) by mouth daily. Kellee pinedo Famotidine (PEPCID) 20 MG oral tablet 10-23 00:00: 00 01-07 00:00 :00 No 20mg Q.5D Take 1 tablet (20 mg total) by mouth 2 times daily. Kellee pinedo Eszopiclone 2 MG oral Tablet 10-23 00:00: 00 12-02 00:00 :00 No [id number] 2mg QD Take 1 tablet (2 mg total) by mouth nightly Take immediatel y before bedtime. Kellee pinedo cefdinir 300 mg capsule 10-23 00:00: 00 11-04 00:00 :00 No [id number] 300mg Take 1 capsule by mouth in the morning and 1 capsule in the evening. Do all this for 8 days. [facility] ondansetron 4 mg disintegrat ing tablet 10-23 00:00: 00 11-01 00:00 :00 No [id number] 4mg Take 1 tablet by mouth every 12 (twelve) hours as needed for Nausea and Vomiting (N/V). [facility] HYDROcodone -acetaminop hen 5-325 mg tablet 10-23 00:00: 00 10-31 04:59 :00 No [id number] 1{tbl} Take 1 tablet by mouth every 6 (six) hours as needed for Pain (scale 7-10) for up to 7 days. Indication s: acute pain [facility] Methocarbam ol 750 MG oral Tablet 10-20 00:00: 00 Yes [id number] 750mg QD Take 1 tablet (750 mg total) by mouth daily. Kellee pinedo Belsomra 20 MG oral Tablet 10-20 00:00: 00 10-23 00:00 :00 No [id number] 1{tbl} QD TAKE 1 TABLET BY MOUTH EVERY DAY AT NIGHT Kellee Seybold - Externa l Ketorolac Tromethamin e 10 MG oral Tablet 10-15 00:00: 00 01-07 00:00 :00 No Kellee Ariasybbeck - Shobha pinedo Rosuvastati n Calcium (Crestor 20 Mg *) 20 Mg TAB Rosuvastati n Calcium (Crestor 20 Mg *) 20 Mg TAB 10-14 18:49: 00 Yes 20 [facility] Clopidogrel Bisulfate (Plavix 75 Mg *) 75 Mg TAB Clopidogrel Bisulfate (Plavix 75 Mg *) 75 Mg TAB 10-14 02:00: 00 Yes 75 [facility] Haloperidol Haloperidol 10-14 02:00: 00 Yes 1 [facility] Isosorbide Mononitrate (Imdur *) 60 Mg Tablet ER 24HR Isosorbide Mononitrate (Imdur *) 60 Mg Tablet ER 24HR 10-14 02:00: 00 Yes 60 [facility] Methocarbam ol Methocarbam ol 10-14 02:00: 00 Yes 750 [facility] Metoprolol Succinate (Toprol Xl *) 25 Mg Tablet ER 24HR Metoprolol Succinate (Toprol Xl *) 25 Mg Tablet ER 24HR 10-14 02:00: 00 Yes 25 [facility] morphine (2 mg/mL) injection 2 mg 10-13 07:30: 00 10-13 07:35 :00 No 2mg 2 mg, Slow IV Push, ONCE, 1 dose, On Sat10/13/24 at 0230, Routine [facility] ondansetron (ZOFRAN (PF)) injection 4 mg 10-13 05:15: 00 10-13 05:20 :00 No 4mg 4 mg, Slow IV Push, ONCE, 1 dose, On Sat10/13/24 at 0015, Administer over 2-5 Minutes, 2 mL [facility] morphine (2 mg/mL) injection 2 mg 10-13 05:15: 00 10-13 05:18 :00 No 2mg 2 mg, Slow IV Push, ONCE, 1 dose, On Sat10/13/24 at 0015, Routine [facility] aspirin chewable tablet 243 mg 10-13 04:00: 00 10-13 04:13 :00 No 243mg 243 mg, Oral, Once, 1 dose, On Sat10/12/24 at 2300, Routine [facility] nitroglycer in (NITROSTAT) sublingual tablet 0.4 mg 10-13 03:55: 07 Yes .4mg 0.4 mg, Sublingual , Q5MIN PRN, 3 doses, Starting on Sat10/12/24 at 2255, Until Discontinu ed, ROSELYN, Chest pain [facility] Haloperidol 1 MG oral Tablet 10-09 [...] MG oral Tablet 09-07 00:00: 00 Yes [id number] 750mg Q.25D TAKE 1 TABLET (750 MG TOTAL) BY MOUTH 4 TIMES DAILY. Kellee pinedo Belsomra 20 MG oral Tablet 09-07 00:00: 00 Yes [id number] 1{tbl} QD TAKE 1 TABLET BY MOUTH EVERY DAY AT NIGHT Kellee pinedo Aspirin Low Dose 81 MG oral Tablet Delayed Response 09-01 00:00: 00 Yes [id number] 81mg QD TAKE 1 TABLET BY MOUTH EVERY DAY Kellee pinedo Ipratropium (ATROVENT) 0.02 % inhalation Solution 08-25 00:00: 10-23 00:00 :00 No 500ug Inhale 2.5 [...] Tablet Therapy Pack 08-05 00:00: 00 Yes [id number] 1{heena} Take 1 heena by mouth See Admin Instructio ns Use as directed. Kellee pinedo Guaifenesin (Mucinex) 600 MG oral Tablet 12 Hour Sustained Release 08-05 00:00: 00 Yes [id number] 1200mg Q.5D Take 2 tablets (1,200 mg total) by mouth 2 times daily. Kellee pinedo Albuterol HFA 108 (90 Base) MCG/ACT IN AERS 08-05 00:00: 00 10-23 00:00 :00 No [id number] 2{puff} Q.25D Inhale 2 puffs into the lungs every 6 hours as needed for wheezing or shortness of breath. Kellee pinedo Belsomra 20 MG oral Tablet 08-04 00:00: 00 Yes [id number] 1{tbl} QD TAKE 1 TABLET BY MOUTH EVERY DAY AT NIGHT Kellee pinedo Aspirin Low Dose 81 MG oral Tablet Delayed Response 08-04 00:00: 00 Yes [id number] 81mg QD TAKE 1 TABLET BY MOUTH [...] 1 dose, On 07/19/24 at 0200, Routine [facility] ipratropium -albuteroL (DUONEB) 0.5 mg-3 mg(2.5 mg base)/3 mL nebulizer solution 3 mL 07-19 08:00: 00 07-19 07:04 :00 No 3mL 3 mL, Inhalation , ONCE, 1 dose, On 07/19/24 at 0200, Routine [facility] azithromyci n (ZITHROMAX) tablet 500 mg 07-19 07:00: 00 07-19 07:05 :00 No 500mg 500 mg, Oral, ONCE, 1 dose, On 07/19/24 at 0100, ROSELYN, Reason for Anti-Infec tive: Documented Infection, Documented Infection Site: Respirator y, Duration of Therapy: Once (ED) [facility] iopamidol (ISOVUE 370-500 mL) injection 75 mL 07-19 06:45: 00 07-19 06:45 :00 No [id number] 75mL 75 mL, Intravenou s, ONCE, 1 dose, On 07/19/24 at 0045, Routine [facility] nitroglycer in (NITROL) 2 % ointment 0.5 Inch 07-19 06:00: 00 07-19 05:11 :00 No .5[in_u s] 0.5 Inch, Transderma l (Apply To Skin), ONCE, 1 dose, On 07/19/24 at 0000, [facility] ketorolac (TORADOL) injection 15 mg 07-19 06:00: 00 07-19 05:09 :00 No 15mg 15 mg, Slow IV Push, ONCE, 1 dose, On 07/19/24 at 0000, [facility] azithromyci n (ZITHROMAX Z-HEENA) 250 mg tablet 07-19 00:00: 00 11-01 00:00 :00 No [id number] 250mg Take 1 tablet by mouth SEE-INSTRU CTIONS. Take 500 mg day 1, then 250 mg days 2 to 5. [facility] predniSONE 20 mg tablet 07-19 00:00: 00 11-01 00:00 :00 No [id number] 1 PO BID x 4 days [facility] Sertraline HCl 50 MG oral Tablet 07-10 00:00: 00 10-23 00:00 :00 No [id number] TAKE 1 TABLET BY MOUTH DAILY TAKE IN ADDITION TO 100 MG TABLET FOR A TOTAL DOSE OF 150 MG DAILY. Kellee pinedo Sertraline HCl 100 MG oral Tablet 07-10 00:00: 00 10-23 00:00 :00 No [id number] TAKE 1 TABLET BY MOUTH EVERY MORNING TAKE IN ADDITION TO 50 MG TABLET FOR A TOTAL DOSE OF 150 MG DAILY. Kellee pinedo iopamidol (ISOVUE 370-500 mL) injection 100 mL 2023-07 06:45: 00 07-04 06:45 :00 No [id number] 100mL 100 mL, Intravenou s, ONCE, 1 dose, On 07/04/24 at 0045, Routine [facility] morpHINE (4 mg/mL) injection 4 mg 2023-07 06:30: 00 07-04 06:29 :00 No 4mg 4 mg, Slow IV Push, ONCE, 1 dose, [facility] 07[facility]04/24 at 0030[facility] (PHENERGAN) 12.5 mg in NS 50 mL IV piggyback (CNR) 2023-07 05:15: 00 07-04 05:30 :00 No 12.5mg 12.5 mg, IV Piggyback, at 200 mL/hr Administer over 15 Minutes, ONCE, 1 dose, On Sat07/03/24 at 2315, ROSELYN [facility] morpHINE (4 mg/mL) injection 4 mg 2023-07 03:30: 00 07-04 03:49 :00 No 4mg 4 mg, Slow IV Push, ONCE, 1 dose, On Sat07/03/24 at 2130, STAT [facility] ondansetron (ZOFRAN (PF)) injection 4 mg 2023-07 03:30: 00 07-04 03:50 :00 No 4mg 4 mg, Slow IV Push, ONCE, 1 dose, On Sat07/03/24 at 2130, Administer over 2-5 Minutes, 2 mL [facility] NaCl 0.9% (NS) IV infusion 1,000 mL 2023-07 03:18: 00 07-04 04:56 :00 No 1000mL at 999 mL/hr, Intravenou s, ONCE, 1 dose, On Sat07/03/24 at 2130, [facility] sodium chloride (NS) injection 5 mL 2023-07 02:16: 03 Yes 5mL 5 mL, Intravenou s, PRN, Starting on Sat07/03/24 at 2016, Until Discontinu ed, Routine, IV line flushing [facility] benzonatate 100 mg capsule 2023-07 00:00: 00 Yes [id number] 100mg Take 1 capsule by mouth 3 (three) times daily as needed for Cough. [facility] proMETHazin e 25 mg tablet 2023-07 00:00: 00 11-01 00:00 :00 No [id number] 25mg Take 1 tablet by mouth every 6 (six) hours as needed for Nausea and Vomiting (N/V). [facility] dicyclomine 10 mg capsule 2023-07 00:00: 00 11-01 00:00 :00 No [id number] 10mg Take 1 capsule by mouth 3 (three) times daily as needed for Abdominal pain. [facility] Gabapentin 300 MG oral Capsule 2023-07 00:00: 00 Yes 1 cap po 30-60 min prior to MRI. Kellee pinedo cephALEXin (KEFLEX) capsule 500 mg 2023-07 08:45: 00 06-21 08:53 :00 No 500mg 500 mg, Oral, ONCE, 1 dose, On 06/21/24 at 0245, ROSELYN, Reason for Anti-Infec tive: Documented Infection, Documented Infection Site: Skin / Soft Tissue, Duration of Therapy: Once (ED) [facility] doxycycline hyclate (Vibramycin ) capsule 100 mg 2023-07 08:45: 00 06-21 08:53 :00 No 100mg 100 mg, Oral, ONCE, 1 dose, On 06/21/24 at 0245, ROSELYN, Reason for Anti-Infec tive: Documented Infection, Documented Infection Site: Skin / Soft Tissue, Duration of Therapy: Once (ED) [facility] doxycycline hyclate 100 mg capsule 2023-07 00:00: 00 06-29 05:59 :00 No [id number] 100mg Take 1 capsule by mouth in the morning and 1 capsule in the evening. Do all this for 7 days. [facility] cephALEXin 500 mg capsule 2023-07 00:00: 00 06-29 05:59 :00 No [id number] 500mg Take 1 capsule by mouth 4 (four) times daily for 7 days. [facility] iopamidol (ISOVUE 370-500 mL) injection 100 mL 2023-07 06:30: 00 06-15 06:30 :00 No [id number] 100mL 100 mL, Intravenou s, ONCE, 1 dose, On Sat06/15/24 at 0030, Routine [facility] morpHINE (4 mg/mL) injection 4 mg 2023-07 06:00: 00 06-15 05:57 :00 No 4mg 4 mg, Slow IV Push, ONCE, 1 dose, On Sat06/15/24 at 0000, STAT [facility] proMETHazin e (PHENERGAN) 12.5 mg in NS 50 mL IV piggyback (CNR) 2023-07 05:15: 00 06-15 05:56 :00 No 12.5mg 12.5 mg, IV Piggyback, at 200 mL/hr Administer over 15 Minutes, ONCE, 1 dose, [facility] 06/14/24 at 2315[facility] 0.9% (NS) IV infusion 1,000 mL 2023-07 04:30: 00 06-15 05:28 :00 No 1000mL at 999 mL/hr, Intravenou s, ONCE, 1 dose, On Sat06/14/24 at 2230, Routine [facility] fentanyl PF (SUBLIMAZE (PF)) injection 50 mcg 2023-07 04:00: 00 06-15 04:23 :00 No 50ug 50 mcg, Slow IV Push, ONCE, 1 dose, On Sat06/14/24 at 2200, Routine [facility] famotidine (PEPCID (PF)) injection 20 mg 2023-07 03:30: 00 06-15 04:18 :00 No 20mg 20 mg, Slow IV Push, ONCE, 1 dose, On Sat06/14/24 at 2130, [facility] ondans[facility] (ZOFRAN (PF)) injection 4 mg 2023-07 03:30: 00 06-15 04:20 :00 No 4mg 4 mg, Slow IV Push, ONCE, 1 dose, On Sat06/14/24 at 2130, Administer over 2-5 Minutes, 2 mL [facility] proMETHazin e 25 mg tablet 2023-07 00:00: 00 11-01 00:00 :00 No [id number] 25mg Take 1 tablet by mouth every 6 (six) hours as needed for Nausea and Vomiting (N/V). [facility] morpHINE (4 mg/mL) injection 4 mg 2023-07 08:15: 00 06-07 08:11 :00 No 4mg 4 mg, Slow IV Push, ONCE, 1 dose, On 06/07/24 at 0215, STAT [facility] ondansetron (ZOFRAN (PF)) injection 4 mg 2023-07 05:15: 00 06-07 05:23 :00 No 4mg 4 mg, Slow IV Push, ONCE, 1 dose, On 06/06/24 at 2315, Administer over 2-5 Minutes, 2 mL [facility] morpHINE (4 mg/mL) injection 4 mg 2023-07 05:15: 00 06-07 05:21 :00 No 4mg 4 mg, Slow IV Push, ONCE, 1 dose, On 06/06/24 at 2315, STAT [facility] nitroglycer in (NITROSTAT) sublingual tablet 0.4 mg 2023-07 05:08: 35 Yes .4mg 0.4 mg, Sublingual , Q5MIN PRN, 3 doses, Starting on 06/06/24 at 2308, Until Discontinu ed, ROSELYN, Chest pain [facility] hydrOXYzine Pamoate 50 MG oral Capsule 2023-07 13:02: 35 Yes [id number] 50mg Q.5D Take 1 capsule (50 mg total) by mouth 2 times daily as needed for anxiety. Kellee pinedo Vitamin D, Ergocalcife rol, 1.25 MG (02706 UT) oral Capsule 2023-07 00:00: 00 Yes [id number] Q1W Take 1 capsule (50,000 units total) by mouth once a week. Kellee pinedo ondansetron (ZOFRAN-ODT ) disintegrat ing tablet 4 mg 2023-07 20:15: 00 05-19 19:27 :00 No 4mg 4 mg, Oral, ONCE, 1 dose, On Tu05/19/24 at 1415, Routine [facility] HYDROcodone -acetaminop hen (NORCO 5) tablet 1 tablet 2023-07 18:00: 00 05-19 19:27 :00 No 1{tbl} 1 tablet, Oral, ONCE, 1 dose, On Sat05/19/24 at 1200, [facility] ondansetron 4 mg disintegrat ing tablet 2023-07 00:00: 00 11-01 00:00 :00 No [id number] 4mg Take 1 tablet by mouth every 8 (eight) hours as needed for Nausea and Vomiting (N/V). [facility] hydrOXYzine Pamoate 50 MG oral Capsule 2023-07 10:26: 29 Yes [id number] 50mg Q.5D Take 1 capsule (50 mg total) by mouth 2 times daily as needed for anxiety. Kellee pinedo ondansetron (ZOFRAN (PF)) injection 4 mg 2023-07 03:45: 00 05-18 03:42 :00 No 4mg 4 mg, Slow IV Push, ONCE, 1 dose, On 05/17/24 at 2145, [facility] morpHINE (4 mg/mL) injection 4 mg 2023-07 03:45: 00 05-18 03:42 :00 No 4mg 4 mg, Slow IV Push, ONCE, 1 dose, On 05/17/24 at 2145, STAT [facility] ondansetron (ZOFRAN (PF)) injection 4 mg 2023-07 01:00: 00 05-18 01:21 :00 No 4mg 4 mg, Slow IV Push, ONCE, 1 dose, On 05/17/24 at 1900, [facility] fentanyl PF (SUBLIMAZE (PF)) injection 50 mcg 2023-07 01:00: 00 05-18 01:21 :00 No 50ug 50 mcg, Slow IV Push, ONCE, 1 dose, On 05/17/24 at 1900, STAT [facility] Suvorexant (Belsomra) 20 MG oral Tablet 2023-07 00:00: 00 Yes [id number] 1{tbl} QD Take 1 tablet by mouth nightly. Kellee pinedo Methocarbam ol 750 MG oral Tablet 2023-07 00:00: 00 Yes [id number] 750mg Q.25D Take 1 tablet (750 mg total) by mouth 4 times daily. Kellee pinedo Acetaminoph en-Codeine 300-30 MG oral Tablet 2023-07 00:00: 00 Yes [id number] Kellee pinedo Lorazepam (ATIVAN) 0.5 MG oral Tablet tablet 2023-07 00:00: 00 Yes [id number] .5mg Q.5D Take 1 tablet (0.5 mg total) by mouth 2 times daily as needed for anxiety. Kellee pinedo Sertraline HCl 50 MG oral Tablet 2023-07 00:00: 00 Yes [id number] 50mg QD Take 1 tablet (50 mg total) by mouth daily Take in addition to 100 mg tablet for a total dose of 150 mg daily. Kellee pinedo Sertraline HCl 100 MG oral Tablet 2023-07 00:00: 00 Yes [id number] 100mg Take 1 tablet (100 mg total) by mouth every morning Take in addition to 50 mg tablet for a total dose of 150 mg daily. Kellee pinedo Isosorbide Mononitrate CR 30 MG oral TABLET SR 24 HR 2023-07 00:00: 00 01-07 00:00 :00 No [id number] Kellee pinedo ondansetron (ZOFRAN (PF)) injection 4 mg 2023-07 01:30: 00 05-08 00:31 :00 No 4mg 4 mg, Slow IV Push, ONCE, 1 dose, On Sat05/07/24 at 2030, [facility] ([facility]/mL[facility] 4 mg 2023-07 01:30: 00 05-08 01:20 :00 No 4mg 4 mg, Slow IV Push, ONCE, 1 dose, On 05/07/24 at 2030, STAT [facility] ketorolac (TORADOL) injection 15 mg 2023-07 01:30: 00 05-08 00:30 :00 No 15mg 15 mg, Slow IV Push, ONCE, 1 dose, On [place] 05/07/24 at 2030, [facility] phenazopyri dine 200 mg tablet 2023-07 00:00: 00 11-01 00:00 :00 No [id number] 200mg Take 1 tablet by mouth in the morning and 1 tablet at noon and 1 tablet in the evening. [facility] Rosuvastati n Calcium 20 MG oral Tablet 2023-07 00:00: 00 01-07 00:00 :00 No 20mg QD Take 1 tablet (20 mg total) by mouth daily. Kellee pinedo Metoprolol Succinate 25 MG oral TABLET SR 24 HR 2023-07 00:00: 00 Yes [id number] 25mg QD Take 1 tablet (25 mg total) by mouth daily. Kellee pinedo Dicyclomine HCl 20 MG oral Tablet 2023-07 00:00: 00 Yes Kellee pinedo Ondansetron (ZOFRAN) 4 MG oral TABLET DISPERSIBLE 2023-07 00:00: 00 Yes 4mg Q.[id number] 3D Take 1 tablet (4 mg total) by mouth 3 times daily. Kellee pinedo Belsomra 20 MG oral Tablet 2023-07 00:00: 00 05-18 00:00 :00 No [id number] 1{tbl} QD take 1 tablet by mouth every day at night Kellee pinedo Nitrofurant oin (Macrobid *) 100 Mg CAP Nitrofurant oin (Macrobid *) 100 Mg CAP 2023-07 18:32: 00 10-14 01:54 :00 No 100 [facility] Ondansetron Hcl (Zofran *) 4 Mg Tablet Disint Ondansetron Hcl (Zofran *) 4 Mg Tablet Disint 2023-07 004 18:32: 00 10-14 01:54 :00 No 1 [facility] cefTRIAXone (ROCEPHIN) 1,000 mg in NaCl 0.9% (NS) 100 mL MINI-BAG 2023-07 01:15: 00 04-09 01:24 :00 No 1000mg 1,000 mg, IV Piggyback, ONCE, 1 dose, On Sat04/08/24 at 2015, Administer over 30 Minutes, 100 mL, Reason for Anti-Infec tive: Documented Infection, Documented Infection Site: Urine, Duration of Therapy: Once (ED) [facility] fentanyl PF (SUBLIMAZE (PF)) injection 25 mcg 2023-07 00:15: 00 04-09 00:18 :00 No 25ug 25 mcg, Slow IV Push, ONCE, 1 dose, On Sat04/08/24 at 1915, STAT [facility] NaCl 0.9% (NS) bolus infusion 1,000 mL 2023-07 23:45: 00 04-09 01:24 :00 No 1000mL at 999 mL/hr, 1,000 mL, IV Infusion, ONCE, 1 dose, On Sat04/08/24 at 1845, [facility] ondansetron (ZOFRAN (PF)) injection 4 mg 2023-07 23:00: 00 04-08 22:57 :00 No 4mg 4 mg, Slow IV Push, ONCE, 1 dose, On Sat04/08/24 at 1800, [facility] ketorolac (TORADOL) injection 30 mg 2023-07 23:00: 00 04-08 22:57 :00 No 30mg 30 mg, Slow IV Push, ONCE, 1 dose, On Sat04/08/24 at 1800, [facility] sodium chloride (NS) injection 5 mL 2023-07 22:33: 00 Yes 5mL 5 mL, Intravenou s, PRN, Starting on Sat04/08/24 at 1733, Until Discontinu ed, Routine, IV line flushing [facility] ciprofloxac in HCl 500 mg tablet 2023-07 00:00: 00 11-01 00:00 :00 No [id number] 500mg Take 1 tablet by mouth in the morning and 1 tablet in the evening. [facility] Promethazin e HCl (PHENERGAN) 25 MG oral Tablet 03-14 00:00: 00 01-07 00:00 :00 No 25mg Q.[id number] 3D Take 1 tablet (25 mg total) by mouth every 8 hours as needed for nausea. Kellee pinedo Aspirin Low Dose 81 MG oral Tablet Delayed Response 02-09 00:00: 00 Yes [id number] 81mg QD take 1 tablet by mouth every day Kellee pinedo Clopidogrel Bisulfate (PLAVIX) 75 MG oral Tablet 02-09 00:00: 00 Yes [id number] 75mg QD take 1 tablet by mouth every day Kellee pinedo Methylpredn isolone Acetate (Depo-Medro l) 40 mg/ml - Physician Administere d ([id number]) 02-05 13:21: 25 No [id number] 40mg 40 mg, Physician Administer ed, ONCE, 1 dose, On [place] 02/06/24 at 1145 Kellee pinedo hydrOXYzine Pamoate 50 MG oral Capsule 02-05 11:06: 49 Yes [id number] 50mg Q.5D Take 1 capsule (50 mg total) by mouth 2 times daily as needed for anxiety. Kellee pinedo Isosorbide Mononitrate CR 60 MG oral TABLET SR 24 HR 02-04 00:00: 00 Yes Kellee pinedo Lorazepam (ATIVAN) 0.5 MG oral Tablet tablet 01-09 00:00: 00 Yes [id number] .5mg Q.5D take 1 tablet by mouth 2 times daily as needed for anxiety Kellee pinedo Aspirin (Aspirin Low Dose) 81 MG oral Tablet Delayed Response 01-05 00:00: 00 Yes [id number] 81mg QD Take 1 tablet (81 mg total) by mouth daily. Kellee pinedo Atorvastati n Calcium 40 MG oral Tablet 01-05 00:00: 00 Yes [id number] 40mg QD Take 1 tablet (40 mg total) by mouth daily. Kellee pinedo Suvorexant (Belsomra) 20 MG oral Tablet 01-05 00:00: 00 Yes [id number] 1{tbl} QD Take 1 tablet by mouth nightly. Kellee pinedo Clopidogrel Bisulfate (PLAVIX) 75 MG oral Tablet 01-05 00:00: 00 Yes [id number] 75mg QD Take 1 tablet (75 mg [...] MG oral Capsule 12-12 09:19: 23 Yes [id number] 50mg Q.5D Take 1 capsule (50 mg total) by mouth 2 times daily as needed for anxiety. Kellee pinedo Lorazepam (ATIVAN) 0.5 MG oral Tablet tablet 12-12 00:00: 00 Yes [id number] .5mg Q.5D Take 1 tablet (0.5 mg total) by mouth 2 times daily as needed for anxiety. Kellee pinedo Aspirin Low Dose 81 MG oral Tablet Delayed Response 12-05 00:00: 00 Yes [id number] 81mg Take 1 tablet (81 mg total) by mouth daily. Kellee pinedo Atorvastati n Calcium 40 MG oral Tablet 12-05 00:00: 00 Yes [id number] 40mg Take 1 tablet (40 mg total) by mouth daily. Kellee pinedo Clopidogrel Bisulfate (PLAVIX) 75 MG oral Tablet 12-05 00:00: 00 Yes [id number] 75mg Take 1 tablet (75 mg total) by mouth daily. Kellee pinedo Mometasone Furo-Formot camelia Fum (Dulera) 200-5 MCG/ACT inhalation Aerosol 12-05 00:00: 00 05-18 00:00 :00 No TWICE DAILY Kellee pinedo Vitamin D, Ergocalcife rol, 1.25 MG (57058 UT) oral Capsule 12-04 00:00: 00 Yes [id number] 59006Q Q1W Take 1 capsule (50,000 units total) by mouth once a week. Kellee pinedo Ferrous Sulfate 325 (65 Fe) MG oral Tablet 12-04 00:00: 00 Yes [id number] 325mg QD Take 1 tablet (325 mg total) by mouth daily (with breakfast) . Kellee pinedo Clopidogrel Bisulfate (PLAVIX) 75 MG oral Tablet 12-04 00:00: 00 01-07 00:00 :00 No 75mg Take 1 tablet (75 mg total) by mouth. Kellee pinedo Mirtazapine 45 MG oral Tablet 12-02 10:49: 07 12-02 00:00 :00 No [id number] 45mg Take 1 tablet (45 mg total) by mouth nightly. Kellee pinedo hydrOXYzine Pamoate 50 MG oral Capsule 12-02 10:49: 04 Yes [id number] 50mg Q.5D Take 1 capsule (50 mg total) by mouth 2 times daily as needed for anxiety. Kellee pinedo Ascorbic Acid 500 MG oral Tablet 12-02 10:48: 55 12-02 00:00 :00 No 50mg Take 50 mg by mouth. Kellee pinedo Suvorexant (Belsomra) 20 MG oral Tablet 12-02 00:00: 00 Yes [id number] 1{tbl} Take 1 tablet by mouth nightly. Kellee pinedo Lorazepam 1 MG oral Tablet 12-02 00:00: 00 12-12 00:00 :00 No [id number] 1mg Q.5D Take 1 tablet (1 mg total) by mouth 2 times daily as needed for anxiety. Kellee pinedo Doxepin HCl 3 MG oral Tablet 11-27 00:00: 00 05-18 00:00 :00 No [id number] 1{tbl} QD TAKE 1 TABLET BY MOUTH EVERY DAY AT NIGHT Kellee pinedo Aripiprazol e 5 MG oral Tablet 11-27 00:00: 00 05-18 00:00 :00 No [id number] 5mg QD TAKE 1 TABLET (5 MG TOTAL) BY MOUTH DAILY. Kellee pinedo Mirtazapine 45 MG oral Tablet 10-28 13:20: 59 Yes [id number] 45mg Take 1 tablet (45 mg total) by mouth nightly. Kellee pinedo Ascorbic Acid 500 MG oral Tablet 10-28 13:20: 47 Yes 50mg Take 50 mg by mouth. Kellee pinedo hydrOXYzine Pamoate 50 MG oral Capsule 10-28 13:20: 47 10-28 00:00 :00 No [id number] 50mg Q.5D Take 1 capsule (50 mg total) by mouth every 4 to 6 hours as needed. Kellee pinedo Sertraline HCl 150 MG oral Capsule 10-28 13:20: 03 10-28 00:00 :00 No 150mg Take 150 mg by mouth daily. Kellee pinedo Doxepin HCl 3 MG oral Tablet 10-28 00:00: 00 Yes [id number] 1{tbl} Take 1 tablet by mouth nightly. Kellee pinedo Aripiprazol e 5 MG oral Tablet 10-28 00:00: 00 Yes [id number] 5mg Take 1 tablet (5 mg total) by mouth daily. Kellee Seybold - Externa l Suvorexant 10 MG oral Tablet 10-28 00:00: 00 12-02 00:00 :00 No [id number] 1{tbl} Take 1 tablet by mouth nightly. Kellee Yeager l Sertraline HCl 50 MG oral Tablet 10-26 00:00: 00 Yes [id number] Kellee Yeager l HYDROcodone -acetaminop hen (NORCO) 10-325 mg tablet 1 tablet 10-10 06:15: 00 10-10 05:25 :00 No 1{tbl} 1 tablet, Oral, ONCE NOW, 1 dose, [facility]10[facility]11/23 [facility] 0115[facility] 370-500 mL) injection 100 mL 10-10 05:00: 00 10-10 05:00 :00 No [id number] 100mL 100 mL, Intravenou s, ONCE, 1 dose, On Sat10/11/23 at 0000, Routine [facility] ketorolac (TORADOL) injection 30 mg 10-10 04:30: 00 10-10 03:29 :00 No 30mg 30 mg, Slow IV Push, ONCE, 1 dose, On Sat10/10/23 at 2330, Routine [facility] NaCl 0.9% (NS) IV infusion 1,000 mL 10-10 04:15: 00 10-10 05:18 :00 No 1000mL at 999 mL/hr, Intravenou s, ONCE, 1 dose, On Sat10/10/23 at 2315, Routine [facility] ondansetron (ZOFRAN (PF)) injection 4 mg 10-10 04:00: 00 10-10 03:54 :00 No 4mg 4 mg, Slow IV Push, ONCE, 1 dose, [facility]10/10/23 at 2300[facility] (4 mg/mL) injection 4 mg 05 04:00: 00 10-10 03:54 :00 No 4mg 4 mg, Slow IV Push, ONCE, 1 dose, On [place] 10/10/23 at 2300, STAT [facility] traMADoL (ULTRAM) 50 mg tablet 10-10 00:00: 00 11-01 00:00 :00 No [id number] 50mg Take 1 tablet by mouth every 6 (six) hours as needed for Pain (scale 7-10). Indication s: acute pain [facility] phenazopyri dine 200 mg tablet 10-10 00:00: 00 11-01 00:00 :00 No [id number] 200mg Take 1 tablet by mouth in the morning and 1 tablet at noon and 1 tablet in the evening. [facility] ondansetron (ZOFRAN) 4 mg tablet 10-10 00:00: 00 11-01 00:00 :00 No [id number] 4mg Take 1 tablet by mouth every 8 (eight) hours as needed for Nausea and Vomiting (N/V). [facility] ketorolac 10 mg tablet 10-10 00:00: 11-01 00:00 :00 No [id number] 10mg Take 1 tablet by mouth every 6 (six) hours as needed for Pain (scale 7-10). [facility] Sertraline HCl 100 MG oral Tablet 10-09 00:00: 00 Yes [id number] 100mg Take 1 tablet (100 mg total) by mouth every morning. Kellee pinedo acetaminoph en (TYLENOL) tablet 975 mg 2022-07 04:15: 00 07-02 03:11 :00 No 975mg 975 mg, Oral, ONCE, 1 dose, On Sat07/01/23 at 2215, [facility] dicyclomine (BENTYL) tablet 20 mg 2022-07 03:15: 00 07-02 03:11 :00 No 20mg 20 mg, Oral, ONCE, 1 dose, On Sat07/01/23 at 2115, [facility] ketorolac (TORADOL) injection 30 mg 2022-07 03:15: 00 07-02 02:32 :00 No 30mg 30 mg, Slow IV Push, ONCE, 1 dose, On Sat07/01/23 at 2115, Routine [facility] ondansetron (ZOFRAN (PF)) injection 4 mg 2022-07 03:00: 00 07-02 02:03 :00 No 4mg 4 mg, Slow IV Push, ONCE, 1 dose, On Sat07/01/23 at 2100, [facility] NaCl 0.9% (NS) bolus infusion 1,000 mL 2022-07 03:00: 00 07-02 04:10 :00 No 1000mL at 999 mL/hr, 1,000 mL, IV Infusion, ONCE, 1 dose, On Sat07/01/23 at 2100, STAT [facility] dicyclomine 20 mg tablet 2022-07 00:00: 00 11-01 00:00 :00 No [id number] 20mg Take 1 tablet by mouth 4 (four) times daily. [facility] ondansetron 4 mg disintegrat ing tablet 2022-07 00:00: 00 11-01 00:00 :00 No [id number] 4mg Take 1 tablet by mouth every 4 (four) hours as needed for Nausea and Vomiting (N/V). [facility] Alprazolam (Alprazolam *) 1 Mg TAB Alprazolam (Alprazolam *) 1 Mg TAB 2022-07 12:08: 00 06-14 00:00 :00 No 1 [facility] Trazodone Hcl (Desyrel 100 Mg*) 100 Mg TAB Trazodone Hcl (Desyrel 100 Mg*) 100 Mg TAB 2022-07 12:07: 00 06-06 12:08 :00 [facility] (Aspirin Ec) 81 Mg Tablet Aspirin (Aspirin Ec) [address] 2022-07 11:55: 00 07-07 00:00 :00 No 81 [facility] Alprazolam (Xanax 2 Mg*) 2 Mg TAB Alprazolam (Xanax 2 Mg*) 2 Mg TAB 2022-07 11:09: 40 06-06 12:08 :00 No 2 [facility] Trazodone Hcl (Desyrel 300 Mg*) 300 Mg TAB Trazodone Hcl (Desyrel 300 Mg*) 300 Mg TAB 2022-07 11:09: 39 05-13 15:45 :00 No 300 [facility] Alprazolam 1 MG oral Tablet 2022-07 00:00: 00 12-12 00:00 :00 No [id number] 2mg Take 2 tablets (2 mg total) by mouth 2 times daily. Kellee pinedo Pantoprazol e * (Protonix Ec *) [address] Pantoprazol e * (Protonix Ec *) [address] 2022-07 15:44: 00 06-05 00:28 :00 No 20 [facility] Sucralfate (Carafate *) 1 Gm TAB Sucralfate (Carafate *) 1 Gm TAB 2022-07 15:44: 00 06-05 00:28 :00 No 1 [facility] Ciprofloxac in Hcl (Cipro *) 500 Mg TAB Ciprofloxac in Hcl (Cipro *) 500 Mg TAB 2022-07 15:44: 00 05-16 00:00 :00 No 500 [facility] Pantoprazol e Sodium 20 MG oral Tablet Delayed Response 2022-07 00:00: 00 12-02 00:00 :00 No Take by mouth. Kellee pinedo ketorolac (TORADOL) injection 15 mg 2022-07 01:00: 00 05-10 00:09 :00 No 15mg 15 mg, Slow IV Push, ONCE, 1 dose, On Sat05/09/23 at 2000, RO[facility] proCHLORper azine (COMPAZINE) injection 5 mg 2022-07 23:30: 00 05-09 22:48 :00 No 5mg 5 mg, Slow IV Push, ONCE, 1 dose, On Sat05/09/23 at 1830, [facility] diphenhydrA MINE (BENADRYL) injection 25 mg 2022-07 22:45: 00 05-09 22:48 :00 No 25mg 25 mg, Slow IV Push, ONCE, 1 dose, On Sat05/09/23 at 1745, STAT [facility] HYDROcodone -acetaminop hen (NORCO) 10-325 mg tablet 1 tablet 2022-07 02:00: 00 05-01 01:04 :00 No 1{tbl} 1 tablet, Oral, ONCE, 1 dose, On Sat04/30/23 at 2100, Routine [facility] iopamidol (ISOVUE 370-500 mL) injection 100 mL 2022-07 00:45: 00 05-01 00:45 :00 No [id number] 100mL 100 mL, Intravenou s, ONCE, 1 dose, On Sat04/30/23 at 1945, Routine [facility] NaCl 0.9% (NS) bolus infusion 1,000 mL 2022-07 00:00: 00 05-01 00:45 :00 No 1000mL at 999 mL/hr, 1,000 mL, IV Piggyback, ONCE, 1 dose, On Sat04/30/23 at 1900, STAT [facility] proCHLORper azine (COMPAZINE) injection 5 mg 2022-07 23:45: 00 04-30 23:09 :00 No 5mg 5 mg, Slow IV Push, ONCE, 1 dose, On Sat04/30/23 at 1845, [facility] diphenhydrA MINE (BENADRYL) injection 25 mg 2022-07 024 23:00: 00 04-30 23:09 :00 No 25mg 25 mg, Slow IV Push, ONCE, 1 dose, On Sat04/30/23 at 1800, STAT [facility] dicyclomine 20 mg tablet 2022-07 00:00: 00 07-01 00:00 :00 No [id number] 20mg Take 1 tablet by mouth 4 (four) times daily. [facility] acetaminoph en (TYLENOL) tablet 1,000 mg 2022-07 02:45: 00 04-17 02:43 :00 No 1000mg 1,000 mg, Oral, ONCE, 1 dose, On Sat04/16/23 at 2145, [facility] ondansetron (ZOFRAN (PF)) injection 4 mg 2022-07 0 03:15: 00 04-09 02:13 :00 No 4mg 4 mg, Slow IV Push, ONCE, 1 dose, On Sat04/08/23 at 2215, [facility] dicyclomine (BENTYL) tablet 20 mg 2022-07 0 03:15: 00 04-09 02:16 :00 No 20mg 20 mg, Oral, ONCE, 1 dose, On Sat04/08/23 at 2215, Routine [facility] ondansetron (ZOFRAN (PF)) injection 4 mg 2022-07 0 23:45: 00 04-08 23:16 :00 No 4mg 4 mg, Slow IV Push, ONCE, 1 dose, On Sat04/08/23 at 1845, [facility] morpHINE (2 mg/mL) injection 4 mg 2022-07 0 23:45: 00 04-08 23:45 :00 No 4mg 4 mg, Slow IV Push, ONCE, 1 dose, On Sat04/08/23 at 1845, STAT [facility] ondansetron 4 mg disintegrat ing tablet 2022-07 0 00:00: 00 07-01 00:00 :00 No [id number] 4mg Take 1 tablet by mouth every 8 (eight) hours as needed for Nausea and Vomiting (N/V). [facility] dicyclomine 20 mg tablet 2022-07 0 00:00: 00 04-30 00:00 :00 No [id number] 20mg Take 1 tablet by mouth 4 (four) times daily. [facility] acetaminoph en (TYLENOL) tablet 1,000 mg 03-10 04:30: 00 03-10 04:29 :00 No 1000mg 1,000 mg, Oral, ONCE, 1 dose, On 03/09/23 at 2330, RO[facility] iopamidol (ISOVUE 370-500 mL) injection 85 mL 03-10 04:30: 00 03-10 04:30 :00 No [id number] 85mL 85 mL, Intravenou s, ONCE, 1 dose, On 03/09/23 at 2330, Routine [facility] FENTanyl PF (SUBLIMAZE (PF)) injection 75 mcg 03-10 04:00: 00 03-10 02:58 :00 No 75ug 75 mcg, Slow IV Push, ONCE, 1 dose, On 03/09/23 at 2300, STAT [facility] NaCl 0.9% (NS) IV infusion 1,000 mL 03-10 03:00: 00 Yes 1000mL at 20 mL/hr, IV Infusion, CONTINUOUS , Starting on 03/09/23 at 2200, Until Discontinu ed, Routine [facility] ondansetron (ZOFRAN (PF)) injection 4 mg 03-10 02:00: 00 03-10 02:01 :00 No 4mg 4 mg, Slow IV Push, ONCE, 1 dose, On 03/09/23 at 2100, RO[facility] morpHINE (4 mg/mL) injection 4 mg 03-10 02:00: 00 03-10 02:01 :00 No 4mg 4 mg, Slow IV Push, ONCE, 1 dose, On 03/09/23 at 2100, STAT [facility] polyethylen e glycol 3350 (MIRALAX) 17 gram powder 03-09 00:00: 00 11-01 00:00 :00 No [id number] 1{packe t} Take 1 Packet by mouth once daily as needed for Constipati on. [facility] Simethicone 125 mg 03-09 00:00: 00 11-01 00:00 :00 No [id number] 125mg Take 1 capsule by mouth after meals and at bedtime as needed for Gas. [facility] iopamidol (ISOVUE 370-500 mL) injection 100 mL 03-02 06:15: 00 03-02 06:15 :00 No [id number] 100mL 100 mL, Intravenou s, ONCE, 1 dose, On 03/02/23 at 0115, Routine [facility] NaCl 0.9% (NS) IV infusion 1,000 mL 03-02 05:15: 00 Yes 1000mL at 999 mL/hr, Intravenou s, CONTINUOUS , Starting on 03/02/23 at 0015, Until Discontinu ed, Routine [facility] ketorolac (TORADOL) injection 30 mg 03-02 05:15: 00 03-02 04:20 :00 No 30mg 30 mg, Slow IV Push, ONCE, 1 dose, On 03/02/23 at 0015, Routine [facility] ondansetron (ZOFRAN (PF)) injection 4 mg 03-02 05:00: 00 03-02 05:24 :00 No 4mg 4 mg, Slow IV Push, ONCE, 1 dose, On 03/02/23 at 0000, RO[facility] morpHINE (4 mg/mL) injection 4 mg 03-02 05:00: 00 03-02 05:24 :00 No 4mg 4 mg, Slow IV Push, ONCE, 1 dose, On 03/02/23 at 0000, STAT [facility] ondansetron (ZOFRAN (PF)) injection 4 mg 03-02 04:15: 00 03-02 04:21 :00 No 4mg 4 mg, Slow IV Push, ONCE, 1 dose, On Sat03/01/23 at 2315, RO[facility] ondansetron (ZOFRAN) 4 mg tablet 03-02 00:00: 00 11-01 00:00 :00 No [id number] 4mg Take 1 tablet by mouth every 8 (eight) hours as needed for Nausea and Vomiting (N/V). [facility] dicyclomine 20 mg tablet 03-02 00:00: 00 04-30 00:00 :00 No [id number] 20mg Take 1 tablet by mouth every 6 (six) hours as needed for Abdominal pain. [facility] metoclopram tracy HCl (REGLAN) injection 10 mg 02-18 06:45: 00 02-18 06:43 :00 No 10mg 10 mg, Slow IV Push, ONCE, 1 dose, On Sat02/18/23 at 0145, [facility] morpHINE (4 mg/mL) injection 4 mg 02-18 05:30: 00 02-18 05:28 :00 No 4mg 4 mg, Slow IV Push, ONCE, 1 dose, On Sat02/18/23 at 0030, STAT [facility] ondansetron (ZOFRAN (PF)) injection 4 mg 02-18 05:30: 00 02-18 05:28 :00 No 4mg 4 mg, Slow IV Push, ONCE, 1 dose, On Sat02/18/23 at 0030, RO[facility] NaCl 0.9% (NS) bolus infusion 1,000 mL 02-18 05:30: 00 02-18 05:15 :00 No 1000mL at 999 mL/hr, 1,000 mL, IV Infusion, ONCE, 1 dose, On Sat02/18/23 at 0030, STAT [facility] proMETHazin e (PHENERGAN) 25 mg in NaCl 0.9% (NS) 50 mL IV piggyback 02-18 04:30: 00 02-18 04:28 :00 No 25mg 25 mg, IV Piggyback, ONCE, 1 dose, On 02/17/23 at 2330, RO[facility] proMETHazin e 25 mg tablet 02-18 00:00: 00 11-01 00:00 :00 No [id number] 25mg Take 1 tablet by mouth every 6 (six) hours as needed for Nausea and Vomiting (N/V). [facility] bupropion HCl (WELLBUTRIN ORAL) 02-17 16:23: 24 Yes 150mg Take 150 mg by mouth every morning. [facility] melatonin 10 mg Tab 02-17 16:23: 24 Yes 1{tbl} Take 1 tablet by mouth at bedtime. [facility] trazodone HCl (TRAZODONE ORAL) 02-17 16:23: 24 Yes 400mg Take 400 mg by mouth at bedtime. [facility] ALPRAZOLAM ORAL 02-17 16:: 11-04 00:00 :00 No 2mg Take 2 mg by mouth in the morning and 2 mg in the evening. [facility] escitalopra m oxalate (LEXAPRO) 5 mg tablet 02-17 16:23: 11-01 00:00 :00 No 10mg Take 2 tablets by mouth at bedtime. [facility] topiramate (TOPAMAX) 200 mg tablet 02-17:23: 11-01 00:00 :00 No 200mg Take 1 tablet by mouth every evening. [facility] OLANZapine (ZYPREXA) 15 mg tablet 02-17 16:23: 11-01 00:00 :00 No 15mg Take 1 tablet by mouth every evening. [facility] melatonin 10 mg Tab 02-17:23: 11-01 00:00 :00 No 10mg Take 1 tablet by mouth at bedtime. [facility] lactated ringers IV infusion 1,000 mL 02-17 02:15: 00 02-17 22:14 :00 No 1000mL at 100 mL/hr, 1,000 mL, IV Infusion, CONTINUOUS , Starting on 02/16/23 at 2115, Until 02/17/23 at 1714, Routine [facility] traZODone (DESYREL) tablet 400 mg 02-17 02:00: 00 Yes 400mg 400 mg, Oral, QHS, First dose on 02/16/23 at 2100, Until Discontinu ed [facility] melatonin (MELATIN) tablet 9 mg 02-17 02:00: 00 Yes 9mg 9 mg, Oral, QHS, First dose on [facility] 02/16/23 at 2100, Until Discontinu ed [facility] morpHINE (2 mg/mL) injection 2 mg 02-17 01:07: 50 03-01 01:06 :50 No 2mg 2 mg, Slow IV Push, Q4HPRN, Starting on 02/16/23 at 2006, Until [place] 02/28/23 at 2005, Routine, Pain (scale 7-10) [facility] OLANZapine (ZyPREXA) tablet 15 mg 02-16 22:00: 00 Yes 15mg 15 mg, Oral, QPM, First dose on [facility] 02/16/23 at 1700, Until Discontinu ed, Routine [facility] buPROPion XL (WELLBUTRIN XL) tablet 150 mg 02-16 14:00: 00 Yes 150mg 150 mg, Oral, DAILY, First dose on [facility] 02/16/23 at 0900, Until Discontinu ed [facility] enoxaparin (LOVENOX) injection 40 mg 02-16 14:00: 00 Yes 40mg 40 mg, Subcutaneo us, DAILY, First dose on 02/16/23 at 0900, Until Discontinu ed, Routine [facility] methocarbam oL (ROBAXIN) tablet 500 mg 02-16 06:04: 59 Yes 500mg 500 mg, Oral, Q6HPRN, Starting on 02/16/23 at 0104, Until Discontinu ed, Routine, Muscle Spasms [facility] ALPRAZolam (XANAX) tablet 2 mg 02-16 06:03: 54 Yes 2mg 2 mg, Oral, TIDPRN, Starting on Sat02/16/23 at 0103, Until Discontinu ed, Anxiety [facility] lactated ringers IV infusion 1,000 mL 02-16 03:15: 00 02-16 23:14 :00 No 1000mL at 100 mL/hr, 1,000 mL, IV Infusion, CONTINUOUS , Starting on Sat02/15/23 at 2215, Until 02/16/23 at 1814, Routine [facility] morpHINE (2 mg/mL) injection 2 mg 02-16 03:07: 02 02-17 01:08 :14 No 2mg 2 mg, Slow IV Push, Q4HPRN, Starting on Sat02/15/23 at 2207, Until 02/16/23 at 2008, Routine, Pain (scale 7-10) [facility] traMADoL (ULTRAM) tablet 50 mg 02-16 03:06: 59 02-18 03:05 :59 No 50mg 50 mg, Oral, Q8HPRN, Starting on Sat02/15/23 at 2206, Until 02/17/23 at 2205, Routine, Pain (scale 4-6) [facility] acetaminoph en (TYLENOL) tablet 1,000 mg 02-16 03:06: 50 Yes 1000mg 1,000 mg, Oral, Q6HPRN, Starting on Sat02/15/23 at 2206, Until Discontinu ed, Routine, Pain (scale 1-3), Temp > 38 C [facility] ALPRAZolam (XANAX) 1 mg tablet 02-16 01:09: 19 02-15 00:00 :00 No 1mg Take 1 tablet by mouth in the morning and 1 tablet in the evening. [facility] iopamidol (ISOVUE 370-500 mL) injection 80 mL 02-16 00:30: 00 02-16 00:30 :00 No [id number] 80mL 80 mL, Intravenou s, ONCE, 1 dose, On Sat02/15/23 at 1930, Routine [facility] lactated ringers IV infusion 1,000 mL 02-16 00:00: 00 02-16 03:07 :30 No [id number] 1000mL at 500 mL/hr, 1,000 mL, IV Infusion, CONTINUOUS , Starting on Sat02/15/23 at 1900, Until Sat02/15/23 at 2207, ROSELYN [facility] FENTanyl PF (SUBLIMAZE (PF)) injection 75 mcg 02-15 23:45: 00 02-15 23:13 :00 No [id number] 75ug 75 mcg, Slow IV Push, ONCE, 1 dose, On Sat02/15/23 at 1845, Routine [facility] dicyclomine (BENTYL) injection 20 mg 02-15 22:15: 00 02-15 21:46 :00 No [id number] 20mg 20 mg, Intramuscu lar, ONCE NOW, 1 dose, On Sat02/15/23 at 1715, Routine [facility] LORazepam (ATIVAN) injection 1 mg 02-15 21:45: 00 02-15 21:46 :00 No [id number] 1mg 1 mg, Slow IV Push, ONCE, 1 dose, On Sat02/15/23 at 1645, STAT [facility] ondansetron (ZOFRAN (PF)) injection 4 mg 02-15 21:45: 00 02-15 21:46 :00 No [id number] 4mg 4 mg, Slow IV Push, ONCE, 1 dose, On Sat02/15/23 at 1645, ROSELYN [facility] HYDROcodone -acetaminop hen (NORCO) 10-325 mg tablet 1 tablet 02-15 20:15: 00 02-15 19:52 :00 No [id number] 1{tbl} 1 tablet, Oral, ONCE, 1 dose, On Sat02/15/23 at 1515, Routine [facility] Melatonin 1 mg tablet 02-15 20:08: 23 02-15 00:00 :00 No 10mg Take 10 tablets by mouth every evening. [facility] trazodone HCl (DESYREL ORAL) 02-15 20:06: 33 02-15 00:00 :00 No 200mg Take 200 mg by mouth every evening. [facility] OLANZapine (ZYPREXA) 2.5 mg tablet 02-15 20:05: 48 02-15 00:00 :00 No 2.5mg Take 1 tablet by mouth in the morning and 1 tablet in the evening. [facility] hydrOXYzine (VISTARIL) 50 mg capsule 02-15 20:03: 04 02-15 00:00 :00 No 50mg Take 1 capsule by mouth every 4 (four) hours as needed for Itching. q 4-6 hours as needed [facility] dicyclomine (BENTYL) tablet 20 mg 02-15 19:30: 00 02-15 19:52 :00 No [id number] 20mg 20 mg, Oral, ONCE, 1 dose, On Sat02/15/23 at 1430, ROSELYN [facility] ibuprofen (IBU) tablet 800 mg 02-15 19:30: 00 02-15 19:52 :00 No [id number] 800mg 800 mg, Oral, ONCE, 1 dose, On Sat02/15/23 at 1430, ROSELYN [facility] losartan 50 mg tablet 02-15 13:44: 36 02-15 00:00 :00 No 50mg Take 1 tablet by mouth in the morning. [facility] Sims-3-DHA -EPA-Fish Oil (FISH OIL) 1,000 mg (120 mg-180 mg) Cap 02-15 13:44: 15 02-15 00:00 :00 No 1000mg Take 1,000 mg by mouth daily. [facility] methocarbam oL 750 mg tablet 02-15 13:43: 47 02-15 00:00 :00 No 750mg Take 750 mg by mouth 3 (three) times daily. [facility] FENTanyl PF (SUBLIMAZE (PF)) injection 50 mcg 01-10 00:45: 00 01-09 23:46 :00 No 50ug 50 mcg, Slow IV Push, ONCE, 1 dose, On Sat01/09/22 at 1945, Routine [facility] ketorolac (TORADOL) injection 30 mg 01-09 23:45: 00 01-09 22:48 :00 No 30mg 30 mg, Slow IV Push, ONCE, 1 dose, On Sat01/09/22 at 1845, Routine [facility] aspirin chewable tablet 243 mg 12-14 14:00: 00 Yes 243mg 243 mg, Oral, DAILY, First dose on [place] 12/14/21 at 0900, Until Discontinu ed, Routine [facility] ketorolac (TORADOL) injection 15 mg 12-14 08:15: 00 12-14 07:11 :00 No 15mg 15 mg, Slow IV Push, ONCE, 1 dose, On [place] 12/14/21 at 0315, ROSELYN [facility] morpHINE (4 mg/mL) injection 4 mg 12-14 05:45: 00 12-14 04:52 :00 No 4mg 4 mg, Slow IV Push, ONCE, 1 dose, On [place] 12/14/21 at 0045, STAT [facility] cefTRIAXone (ROCEPHIN) 1,000 mg in NaCl 0.9% (NS) 50 mL MINI-BAG 12-14 05:45: 00 12-14 05:30 :00 No 1000mg 1,000 mg, IV Piggyback, ONCE, 1 dose, On [place] 12/14/21 at 0045, Administer over 30 Minutes, 50 mL
Reas on for Anti-Infec tive: Documented Infection< br>Documen kaushik Infection Site: Urine
D uration of Therapy: Other (see Comments) [facility] NaCl 0.9% (NS) bolus infusion 1,000 mL 12-14 05:45: 00 12-14 07:20 :00 No 1000mL at 999 mL/hr, 1,000 mL, IV Infusion, ONCE, 1 dose, On [place] 12/14/21 at 0045, [facility] ondansetron (ZOFRAN (PF)) injection 4 mg 12-14 04:45: 00 12-14 03:50 :00 No 4mg 4 mg, Slow IV Push, ONCE, 1 dose, On Sat12/13/21 at 2345, [facility] FENTanyl PF (SUBLIMAZE (PF)) injection 50 mcg 12-14 04:45: 00 12-14 03:50 :00 No 50ug 50 mcg, Slow IV Push, ONCE, 1 dose, On Sat12/13/21 at 2345, Routine [facility] ALPRAZolam (XANAX) 1 mg tablet 12-14 02:22: 13 Yes 1mg Take 1 mg by mouth 2 (two) times daily. [facility] naproxen 500 mg tablet 12-14 00:00: 00 02-15 00:00 :00 No [id number] 500mg Take 1 tablet by mouth 2 (two) times daily with meals. [facility] cefpodoxime 200 mg tablet 12-14 00:00: 00 12-22 04:59 :00 No [id number] 200mg Take 1 tablet by mouth 2 (two) times daily for 7 days. [facility] LORazepam (ATIVAN) injection 1 mg 11-12 05:00: 00 11-12 04:01 :00 No 1mg 1 mg, Slow IV Push, ONCE, 1 dose, On 11/12/21 at 0000, STAT [facility] ketorolac (TORADOL) injection 30 mg 11-12 03:30: 00 11-12 02:26 :00 No 30mg 30 mg, Slow IV Push, ONCE, 1 dose, On 11/11/21 at 2230, Routine
geosciences faculty member approving Restricted medication : APPLE WANG [facility] nitroglycer in (NITROSTAT) sublingual tablet 0.4 mg 11-12 03:30: 00 11-12 02:26 :00 No .4mg 0.4 mg, Sublingual , ONCE, 1 dose, On 11/11/21 at 2230, [facility] aspirin E.C. (ECOTRIN) tablet 325 mg 11-12 03:30: 00 11-12 02:25 :00 No 325mg 325 mg, Oral, ONCE, 1 dose, On 11/11/21 at 2230, [facility] morpHINE (4 mg/mL) injection 4 mg 11-12 02:30: 00 11-12 01:40 :00 No 4mg 4 mg, Slow IV Push, ONCE, 1 dose, On 11/11/21 at 2130, STAT [facility] ondansetron (ZOFRAN (PF)) injection 4 mg 11-12 02:30: 00 11-12 01:40 :00 No 4mg 4 mg, Slow IV Push, ONCE, 1 dose, On 11/11/21 at 2130, [facility] NaCl 0.9% (NS) bolus infusion 1,000 mL 11-12 02:30: 00 11-12 02:30 :00 No 1000mL at 999 mL/hr, 1,000 mL, IV Infusion, ONCE, 1 dose, On 11/11/21 at 2130, [facility] hydrOXYzine 50 mg tablet 11-11 00:00: 00 04-08 00:00 :00 No [id number] 50mg Take 1 tablet by mouth every 8 (eight) hours as needed for Anxiety. [facility] ketorolac (TORADOL) injection 30 mg 08 05:45: 00 09-12 04:54 :00 No 30mg 30 mg, Slow IV Push, ONCE, 1 dose, On 09/11/21 at 2345, Routine
geosciences faculty member approving Restricted medication : APPLE WANG [facility] cefTRIAXone (ROCEPHIN) 1,000 mg in NaCl 0.9% (NS) 50 mL MINI-BAG 09-12 03:45: 00 09-12 03:41 :00 No 1000mg 1,000 mg, IV Piggyback, ONCE, 1 dose, On Sat09/11/21 at 2145, Administer over 30 Minutes, 50 mL
Reas on for Anti-Infec tive: Documented Infection< br>Documen kaushik Infection Site: Urine
D uration of Therapy: 7 days [facility] ondansetron (ZOFRAN (PF)) injection 4 mg 09-12 03:15: 00 09-12 02:39 :00 No 4mg 4 mg, Slow IV Push, ONCE, 1 dose, On Sat09/11/21 at 2115, ROSELYN [facility] morpHINE injection 4 mg 09-12 03:15: 00 09-12 02:39 :00 No 4mg 4 mg, Slow IV Push, ONCE, 1 dose, On Sat09/11/21 at 2115, STAT [facility] iopamidol (ISOVUE 370-500 mL) injection 120 mL 09-12 02:45: 00 09-12 03:00 :00 No [id number] 120mL 120 mL, Intravenou s, ONCE, 1 dose, On Sat09/11/21 at 2100, Routine [facility] sodium chloride (NS) injection 5 mL 09-12 01:33: 26 Yes 5mL 5 mL, Intravenou s, PRN, Starting on Sat09/11/21 at 1933, Until Discontinu ed, Routine, IV line flushing [facility] ibuprofen 600 mg tablet 09-11 00:00: 00 02-15 00:00 :00 No [id number] 600mg Take 1 tablet by mouth every 6 (six) hours as needed for Pain (scale 4-6). [facility] cefdinir 300 mg capsule 2022-0 3-07 00:00: 00 09-19 04:59 :00 No [id number] 300mg Take 1 capsule by mouth 2 (two) times daily for 7 days. [facility] HYDROcodone -acetaminop hen (NORCO) 10-325 mg tablet 1 tablet 08-15 09:00: 00 08-15 07:59 :00 No 1{tbl} 1 tablet, Oral, ONCE, 1 dose, On Sat08/15/21 at 0300, Routine [facility] FENTanyl PF (SUBLIMAZE (PF)) injection 75 mcg 08-15 07:30: 00 08-15 06:42 :00 No 75ug 75 mcg, Intramuscu lar, ONCE, 1 dose, On Sat08/15/21 at 0130, Routine [facility] methocarbam oL (ROBAXIN) 500 mg tablet 08-15 00:00: 00 Yes [id number] 500mg Take 1 tablet by mouth every 6 (six) hours as needed for Pain (scale 7-10) (MUSCLE SPASM). [facility] traMADoL (ULTRAM) 50 mg tablet 08-15 00:00: 00 11-01 00:00 :00 No [id number] 50mg Take 1 tablet by mouth every 6 (six) hours as needed for Pain (scale 7-10). Indication s: acute pain [facility] Nitrofurant oin&Nit. Macrocryst (MACROBID) 100 mg capsule 08-15 00:00: 00 02-15 00:00 :00 No [id number] 100mg Take 1 capsule by mouth 2 (two) times daily. [facility] morpHINE injection 4 mg 2020-07 08:30: 00 05-28 07:50 :00 No 4mg 4 mg, Slow IV Push, ONCE, 1 dose, On 05/28/21 at 0230, ROSELYN [facility] maalox:diph enhydrAMINE :lidocaine 2 % viscous 1:1:1 ([facility]) oral suspension 15 mL 2020-07 08:00: 00 05-28 07:04 :00 No 15mL 15 mL, Oral, ONCE, 1 dose, On 05/28/21 at 0200, Routine [facility] FENTanyl PF (SUBLIMAZE (PF)) injection 50 mcg 2020-07 07:00: 00 05-28 06:02 :00 No 50ug 50 mcg, Slow IV Push, ONCE, 1 dose, On 05/28/21 at 0100, STAT [facility] famotidine (PEPCID (PF)) injection 20 mg 2020-07 07:00: 00 05-28 06:01 :00 No 20mg 20 mg, Slow IV Push, ONCE, 1 dose, On 05/28/21 at 0100, ROSELYN [facility] famotidine 20 mg tablet 2020-07 00:00: 00 06-13 05:59 :00 No [id number] 20mg Take 1 tablet by mouth 2 (two) times daily for 15 days. [facility] escitalopra m oxalate (LEXAPRO) tablet 10 mg 2020-07 02:00: 00 Yes 10mg 10 mg, Oral, QHS, First dose on 04/08/21 at 2100, Until Discontinu ed, Routine [facility] aspirin 81 mg chewable tablet 2020-07 00:00: 00 05-10 04:59 :00 No [id number] 81mg Take 1 tablet by mouth daily for 30 days. [facility] traZODone (DESYREL) tablet 200 mg 2020-07 22:00: 00 Yes 200mg 200 mg, Oral, QPM, First dose on 04/08/21 at 1700, Until Discontinu ed [facility] topiramate (TOPAMAX) tablet 200 mg 2020-07 0 22:00: 00 Yes 200mg 200 mg, Oral, QPM, First dose on 04/08/21 at 1700, Until Discontinu ed, Routine
geosciences faculty member approving Restricted medication : ALEXEY ALEGRE [facility] OLANZapine (ZyPREXA) tablet 15 mg 2020-07 22:00: 00 Yes 15mg 15 mg, Oral, QPM, First dose on 04/08/21 at 1700, Until Discontinu ed, Routine [facility] melatonin (MELATIN) tablet 9 mg 2020-07 22:00: 00 Yes 9mg 9 mg, Oral, QPM, First dose on 04/08/21 at 1700, Until Discontinu ed [facility] 750 mg tablet 2020-07 17:45: 33 Yes 750mg Take 750 mg by mouth 3 (three) times daily. [facility] Sims-3-DHA -EPA-Fish Oil (FISH OIL) 1,000 mg (120 mg-180 mg) Cap 2020-07 17:45: 33 Yes 1000mg Take 1,000 mg by mouth daily. [facility] hydrOXYzine (VISTARIL) 50 mg capsule 2020-07 17:45: 33 Yes 50mg Take 50 mg by mouth every 4 (four) hours as needed for Itching. q 4-6 hours as needed [facility] losartan 50 mg tablet 2020-07 17:45: 33 Yes 50mg Take 50 mg by mouth daily. [facility] trazodone HCl (DESYREL ORAL) 2020-07 17:45: 33 Yes 200mg Take 200 mg by mouth every evening. [facility] escitalopra m oxalate (LEXAPRO) 5 mg tablet 2020-07 17:45: 33 Yes 10mg Take 10 mg by mouth at bedtime. [facility] Melatonin 1 mg tablet 2020-07 17:45: 33 Yes 10mg Take 10 mg by mouth every evening. [facility] topiramate (TOPAMAX) 200 mg tablet 2020-07 17:45: 33 Yes 200mg Take 200 mg by mouth every evening. [facility] bupropion HCl (WELLBUTRIN ORAL) 2020-07 17:45: 33 Yes 150mg Take 150 mg by mouth every morning. [facility] OLANZapine (ZYPREXA) 15 mg tablet 2020-07 17:45: 33 Yes 15mg Take 15 mg by mouth every evening. [facility] OLANZapine (ZYPREXA) 2.5 mg tablet 2020-07 17:45: 33 Yes 2.5mg Take 2.5 mg by mouth 2 (two) times daily. [facility] [place] [place] ity [facility] furosemide (LASIX) injection 20 mg 2020-07 14:30: 00 Yes 20mg 20 mg, Slow IV Push, Q12H, First dose on 04/08/21 at 0930, Until Discontinu ed, Routine [facility] los[facility] (COZAAR[facility] 50 mg 2020-07 14:00: 00 Yes 50mg 50 mg, Oral, DAILY, First dose on 04/08/21 at 0900, Until Discontinu ed, Routine [facility] buPROPion XL (WELLBUTRIN XL) tablet 150 mg 2020-07 14:00: 00 Yes 150mg 150 mg, Oral, DAILY, First dose on 04/08/21 at 0900, Until Discontinu ed [facility] aspirin chewable tablet 81 mg 2020-07 14:00: 00 Yes 81mg 81 mg, Oral, DAILY, First dose on 04/08/21 at 0900, Until Discontinu ed, Routine [facility] enoxaparin (LOVENOX) injection 40 mg 2020-07 14:00: 00 Yes 40mg 40 mg, Subcutaneo us, DAILY, First dose on 04/08/21 at 0900, Until Discontinu ed, Routine [facility] OLANZapine (ZyPREXA) tablet 2.5 mg 2020-07 13:00: 00 Yes 2.5mg 2.5 mg, Oral, BID, First dose on 04/08/21 at 0800, Until Discontinu ed, Routine [facility] methocarbam oL (ROBAXIN) tablet 750 mg 2020-07 13:00: 00 Yes 750mg 750 mg, Oral, TID, First dose on 04/08/21 at 0800, Until Discontinu ed, Routine [facility] LORazepam (ATIVAN) injection 0.5 mg 2020-07 0 04:07: 43 Yes .5mg 0.5 mg, Slow IV Push, PRN, 2 doses, Starting on Sat04/07/21 at 2307, Until Discontinu ed, Routine, Anxiety [facility] hydrOXYzine (ATARAX) tablet 50 mg 2020-07 0 02:51: 23 Yes 50mg 50 mg, Oral, Q4HPRN, Starting on Sat04/07/21 at 2151, Until Discontinu ed, Itching [facility] LORazepam (ATIVAN) tablet 0.5 mg 2020-07 0 02:05: 29 Yes .5mg 0.5 mg, Oral, PRN, 2 doses, Starting on Sat04/07/21 at 2105, Until Discontinu ed, Routine, Anxiety [facility] morpHINE injection 4 mg 2020-07 0 00:00: 00 04-07 22:58 :00 No 4mg 4 mg, Slow IV Push, ONCE, 1 dose, On Sat04/07/21 at 1900, STAT [facility] ondansetron (ZOFRAN (PF)) injection 4 mg 2020-07 0 00:00: 00 04-07 22:56 :00 No 4mg 4 mg, Slow IV Push, ONCE, 1 dose, On Sat04/07/21 at 1900, ROSELYN [facility] morpHINE injection 4 mg 2020-07 23:58: 03 04-08 23:57 :03 No 4mg 4 mg, Slow IV Push, Q4HPRN, Starting on Sat04/07/21 at 1858, Until 04/08/21 at 1857, Routine, Pain (scale 7-10) [facility] HYDROcodone -acetaminop hen (NORCO 5) 5-325 mg tablet 1 tablet 2020-07 0 23:58: 00 04-09 23:57 :00 No 1{tbl} 1 tablet, Oral, Q6HPRN, Starting on Sat04/07/21 at 1858, Until 04/09/21 at 1857, Routine, Pain (scale 4-6) [facility] acetaminoph en (TYLENOL) tablet 650 mg 2020-07 23:57: 57 Yes 650mg 650 mg, Oral, Q6HPRN, Starting on Sat04/07/21 at 1857, Until Discontinu ed, Routine, Pain (scale 1-3) [facility] aspirin tablet 325 mg 2020-07 23:00: 00 04-07 21:56 :00 No 325mg 325 mg, Oral, ONCE, 1 dose, On Sat04/07/21 at 1800, STAT [facility] nitroglycer in (NITROSTAT) sublingual tablet 0.4 mg 2020-07 21:51: 01 04-07 22:46 :00 No .4mg 0.4 mg, Sublingual , Q5MIN PRN, 3 doses, Starting on Sat04/07/21 at 1651, Until Discontinu ed, ROSELYN, Chest pain [facility] fluconazole (DIFLUCAN) tablet 150 mg 01-12 14:00: 00 Yes 150mg 150 mg, Oral, DAILY, First dose on [place] 01/12/21 at 0900, Until Discontinu ed, ROSELYN
Re ason for Anti-Infec tive: Empiric Therapy for Suspected Infection< br>Empiric Therapy Site: HEENT
D uration of therapy: 72 hours [facility] cefTRIAXone (ROCEPHIN) 1,000 mg in NaCl 0.9% (NS) 50 mL MINI-BAG 01-12 10:15: 00 01-12 09:49 :00 No 1000mg 1,000 mg, IV Piggyback, ONCE, 1 dose, [place] 01/12/21 at 0515, 50 mL
Reas on for Anti-Infec tive: Empiric Therapy for Suspected Infection< br>Empiric Therapy Site: Urine
D uration of therapy: 72 hours [facility] hydrOXYzine (ATARAX) tablet 25 mg 01-12 10:15: 00 01-12 09:18 :00 No 25mg 25 mg, Oral, ONCE, 1 dose, [place] 01/12/21 at 0515, ROSELYN [facility] HYDROcodone -acetaminop hen (NORCO) 10-325 mg tablet 1 tablet 01-12 10:15: 00 01-12 09:18 :00 No 1{tbl} 1 tablet, Oral, ONCE, 1 dose, [place] 01/12/21 at 0515, Routine [facility] maalox:diph enhydrAMINE :lidocaine2 %viscous 1:1:1: suspension (COMPOUNDED ) 01-12 09:30: 00 01-12 08:25 :00 No 15mL 15 mL, Oral, ONCE, 1 dose, [place] 01/12/21 at 0430, Routine [facility] cephALEXin (KEFLEX) 500 mg capsule 01-12 00:00: 00 04-07 00:00 :00 No [id number] 500mg Take 1 capsule by mouth 3 (three) times daily. [facility] HYDROcodone -acetaminop hen (NORCO 5) 5-325 mg tablet 1 tablet 12-11 02:00: 00 12-11 01:29 :00 No 1{tbl} 1 tablet, Oral, ONCE, 1 dose, 12/10/20 at 2100, ROSELYN [facility] LORazepam (ATIVAN) injection 1 mg 12-11 00:30: 00 12-10 23:36 :00 No 1mg 1 mg, Slow IV Push, ONCE, 1 dose, 12/10/20 at 1930, STAT [facility] ketorolac (TORADOL) injection 30 mg 12-11 00:30: 00 12-10 23:36 :00 No 30mg 30 mg, Slow IV Push, ONCE, 1 dose, 12/10/20 at 1930, ROSELYN
Fa culty member approving Restricted medication : EMERGENCY ROOM, [facility] ondansetron (ZOFRAN (PF)) injection 4 mg 12-10 23:45: 00 12-10 22:46 :00 No 4mg 4 mg, Slow IV Push, ONCE, 1 dose, 12/10/20 at 1845, [facility] NaCl 0.9% (NS) bolus infusion 2,000 mL 12-10 22:45: 00 12-11 01:29 :00 No 2000mL at 999 mL/hr, 2,000 mL, IV Infusion, ONCE, 1 dose, 12/10/20 at 1745, [facility] proMETHazin e 25 mg tablet 12-10 00:00: 00 04-07 00:00 :00 No [id number] 12.5mg Take 0.5 tablets by mouth every 6 (six) hours as needed for N/V unresponsi ve to Ondansetro n. [facility] morpHINE injection 4 mg 12-04 22:30: 00 12-04 21:37 :00 No 4mg 4 mg, Slow IV Push, ONCE, 1 dose, 12/04/20 at 1730, [facility] losartan 50 mg tablet 12-04 22:03: 53 Yes 50mg Take 50 mg by mouth daily. [facility] LORazepam (ATIVAN) tablet 1 mg 12-04 21:45: 00 12-04 20:44 :00 No 1mg 1 mg, Oral, ONCE, 1 dose, 12/04/20 at 1645, [facility] ondansetron (ZOFRAN (PF)) injection 4 mg 12-04 21:15: 00 12-04 20:22 :00 No 4mg 4 mg, Slow IV Push, ONCE, 1 dose, 12/04/20 at 1615, [facility] morpHINE injection 4 mg 12-04 21:15: 00 12-04 20:21 :00 No 4mg 4 mg, Slow IV Push, ONCE, 1 dose, 12/04/20 at 1615, STAT [facility] ALPRAZolam (XANAX) 2 mg tablet 11-04 04:24: 19 11-03 00:00 :00 No 2mg Take 2 mg by mouth at bedtime. [facility] LORazepam (ATIVAN) injection 1 mg 11-04 04:00: 00 11-04 02:57 :00 No 1mg 1 mg, Slow IV Push, ONCE, 1 dose, [place] 11/03/20 at 2300, STAT [facility] LORazepam (ATIVAN) tablet 1 mg 11-04 04:00: 00 11-04 02:57 :00 No 1mg 1 mg, Oral, ONCE, 1 dose, [place] 11/03/20 [facility] 2300[facility].5 [facility] 11-01 00:00: 00 04-07 00:00 :00 No .5mg Take 0.5 mg by mouth. [facility] SERTraline 100 mg tablet 11-01 00:00: 00 04-07 00:00 :00 No 100mg Take 100 mg by mouth. [facility] busPIRone 10 mg tablet 10-18 00:00: 00 04-07 00:00 :00 No 10mg Take 10 mg by mouth. [facility] Ciprofloxac in/Dexameth asone (Ciprodex 0.3%-0.1% Otic*) 1 Ea SUSP Ciprofloxac in/Dexameth asone (Ciprodex 0.3%-0.1% Otic*) 1 Ea SUSP 09-19 13:53: 00 09-30 00:00 :00 [facility] 800 mg 09-17 16:55: 00 09-17 16:57 :00 No 800mg 800 mg, Oral, ONCE, 1 dose, 09/17/20 at 1100, ROSELYN [facility] benzonatate 100 mg capsule 09-17 00:00: 00 04-07 00:00 :00 No [id number] 100mg Take 1 capsule by mouth 3 (three) times daily as needed for Cough. [facility] amoxicillin 500 mg capsule 3-13 00:00: 00 09-28 04:59 :00 No [id number] 500mg Take 1 capsule by mouth 3 (three) times daily for 10 days. [facility] HYDROcodone -acetaminop hen (NORCO) 10-325 mg tablet 1 tablet 09-07 07:45: 00 09-07 07:09 :00 No 1{tbl} 1 tablet, Oral, ONCE, 1 dose, Sat09/07/20 at 0145, Routine [facility] ondansetron (ZOFRAN-ODT ) disintegrat ing tablet 4 mg 09-07 07:15: 00 09-07 07:15 :00 No 4mg 4 mg, Oral, ONCE, 1 dose, Sat09/07/20 at 0130, Routine [facility] ibuprofen 800 mg tablet 09-07 00:00: 00 Yes [id number] 800mg Take 1 tablet by mouth every 8 (eight) hours as needed for Pain (scale 4-6). [facility] ketorolac (TORADOL) injection 30 mg 08-28 10:45: 00 08-28 09:48 :00 No 30mg 30 mg, Slow IV Push, ONCE, 1 dose, 08/28/20 at 0445, Routine
geosciences faculty member approving Restricted medication : BOB GARCIA [facility] ondansetron (ZOFRAN (PF)) injection 4 mg 08-28 10:00: 00 08-28 09:06 :00 No 4mg 4 mg, Slow IV Push, ONCE, 1 dose, 08/28/20 at 0400, ROSELYN [facility] FENTanyl PF (SUBLIMAZE (PF)) injection 50 mcg 08-28 10:00: 00 08-28 09:07 :00 No 50ug 50 mcg, Slow IV Push, ONCE, 1 dose, 08/28/20 at 0400, Routine [facility] maalox:diph enhydrAMINE :lidocaine 2 % viscous 1:1:1 ([facility]) oral suspension 15 mL 08-28 10:00: 00 08-28 09:07 :00 No 15mL 15 mL, Oral, ONCE, 1 dose, 08/28/20 at 0400, Routine [facility] iohexol (OMNIPAQUE 350 BULK-100 mL) injection 120 mL 08-28 09:30: 00 08-28 09:11 :00 No 120mL 120 mL, Intravenou s, ONCE, 1 dose, 08/28/20 at 0330, Routine [facility] dicyclomine 20 mg tablet 08-28 00:00: 00 04-07 00:00 :00 No [id number] 20mg Take 1 tablet by mouth every 6 (six) hours as needed for Abdominal pain. [facility] ondansetron (ZOFRAN) 4 mg tablet 08-28 00:00: 00 09-17 00:00 :00 No [id number] 4mg Take 1 tablet by mouth every 8 (eight) hours as needed for Nausea and Vomiting (N/V). [facility] FENTanyl PF (SUBLIMAZE (PF)) injection 25 mcg 08-14 19:00: 00 08-14 18:09 :00 No 25ug 25 mcg, Slow IV Push, ONCE, 1 dose, 08/14/20 at 1300, STAT [facility] ondansetron (ZOFRAN (PF)) injection 4 mg 08-14 19:00: 00 08-14 18:10 :00 No 4mg 4 mg, Slow IV Push, ONCE, 1 dose, 08/14/20 at 1300, ROSELYN [facility] ketorolac (TORADOL) injection 15 mg 08-14 19:00: 00 08-14 18:09 :00 No 15mg 15 mg, Slow IV Push, ONCE, 1 dose, 08/14/20 at 1300, ROSELYN
Fa culty member approving Restricted medication : CLAUDIA, KATYE R [facility] piperacilli n-tazobacta m (ZOSYN) 3.375 g in NaCl 0.9% (NS) 100 mL MINI-BAG 08-14 19:00: 08-14 18:38 :00 No 3.375g 3.375 g, IV Piggyback, ONCE, 1 dose, 08/14/20 at 1300, 100 mL
Reas on for Anti-Infec tive: Documented Infection< br>Documen kaushik Infection Site: Urine
D uration of Therapy: Other (see Comments) [facility] NaCl 0.9% (NS) bolus infusion 1,000 mL 08-14 19:00: 00 08-14 19:00 :00 No 1000mL at 999 mL/hr, 1,000 mL, IV Infusion, ONCE, 1 dose, 08/14/20 at 1300, STAT [facility] guaiFENesin 100 mg/5 mL solution 08-14 00:00: 04-07 00:00 :00 No [id number] 100mg Take 5 mL by mouth every 4 (four) hours. [facility] ondansetron 4 mg disintegrat ing tablet 08-14 00:00: 00 09-17 00:00 :00 No [id number] 4mg Take 1 tablet by mouth every 8 (eight) hours as needed for Nausea and Vomiting (N/V). [facility] ibuprofen 600 mg tablet 08-14 00:00: 00 09-17 00:00 :00 No [id number] 600mg Take 1 tablet by mouth every 6 (six) hours as needed for Pain (scale 4-6). [facility] amoxicillin -clavulanat e 875-125 mg per tablet 08-14 00:00: 00 08-25 05:59 :00 No [id number] 1{tbl} Take 1 tablet by mouth 2 (two) times daily for 10 days. [facility] fluconazole (DIFLUCAN) tablet 150 mg 08-11 15:00: 00 Yes 150mg 150 mg, Oral, DAILY, First dose on [place] 08/11/20 at 0900, Until Discontinu ed, ROSELYN
Re ason for Anti-Infec tive: Documented Infection< br>Documen kaushik Infection Site: Urine
D uration of Therapy: Other (see Comments) [facility] HYDROcodone -acetaminop hen (NORCO) 10-325 mg tablet 1 tablet 08-11 05:30: 00 08-11 05:08 :00 No 1{tbl} 1 tablet, Oral, ONCE NOW, 1 dose, 08/10/20 at 2330, Routine [facility] FENTanyl PF (SUBLIMAZE (PF)) injection 25 mcg 08-11 04:30: 00 08-11 03:19 :00 No 25ug 25 mcg, Slow IV Push, ONCE, 1 dose, 08/10/20 at 2230, STAT [facility] ondansetron (ZOFRAN (PF)) injection 4 mg 08-11 04:15: 00 08-11 03:19 :00 No 4mg 4 mg, Slow IV Push, ONCE, 1 dose, 08/10/20 at 2215, ROSELYN [facility] NaCl 0.9% (NS) bolus infusion 1,000 mL 2-04 01:45: 00 08-11 03:45 :00 No 1000mL at 999 mL/hr, 1,000 mL, IV Infusion, ONCE, 1 dose, 08/10/20 at 1945, STAT [facility] ketorolac (TORADOL) injection 30 mg 2-04 01:45: 00 08-11 02:31 :00 No 30mg 30 mg, Slow IV Push, ONCE, 1 dose, 08/10/20 at 1945, ROSELYN
Fa culty member approving Restricted medication : BEST TAYLOR [facility] traMADoL (ULTRAM) 50 mg tablet 2- 00:00: 00 09-17 00:00 :00 No [id number] 50mg Take 1 tablet by mouth every 6 (six) hours as needed for Pain (scale 7-10). Indication s: acute pain [facility] ibuprofen 800 mg tablet 08-07 00:00: 00 09-17 00:00 :00 No [id number] 800mg Take 1 tablet by mouth every 8 (eight) hours. [facility] amoxicillin 500 mg capsule 08-07 00:00: 00 09-17 00:00 :00 No [id number] 500mg Take 1 capsule by mouth 3 (three) times daily. [facility] traMADoL 50 mg tablet 08-07 00:00: 00 09-17 00:00 :00 No [id number] 50mg Take 1 tablet by mouth every 6 (six) hours as needed for Pain (scale 4-6). Indication s: acute pain [facility] LORazepam (ATIVAN) tablet 1 mg 2019-07 03:15: 00 07-01 02:21 :00 No 1mg 1 mg, Oral, ONCE, 1 dose, [place] 20 at 2115, ROSELYN [facility] FENTanyl PF (SUBLIMAZE (PF)) injection 50 mcg 2019-07 02:30: 00 07-01 01:39 :00 No 50ug 50 mcg, Slow IV Push, ONCE, 1 dose, [place] 20 at 2030, Routine [facility] ondansetron (ZOFRAN-ODT ) disintegrat ing tablet 4 mg 2019-07 01:15: 00 07-01 00:52 :00 No 4mg 4 mg, Oral, ONCE, 1 dose, [place] 20 at 1915, Routine [facility] ketorolac (TORADOL) injection 30 mg 2019-07 01:15: 00 07-01 00:52 :00 No 30mg 30 mg, Slow IV Push, ONCE, 1 dose, [place] 06/30/20 at 1915, ROSELYN
Fa culty member approving Restricted medication : ABDIAS ROBERTSON [facility] albuterol 90 mcg/actuati on inhaler 2019-07 00:00: 04-07 00:00 :00 No [id number] 2{puff} Inhale 2 Puffs every 4 (four) hours as needed for Wheezing or Shortness of Breath. [facility] hydrOXYzine 25 mg tablet 2019-07 00:00: 00 09-17 00:00 :00 No [id number] 25mg Take 1 tablet by mouth every 6 (six) hours as needed for Anxiety. [facility] naproxen sodium (ANAPROX DS) 550 mg tablet 2019-07 00:00: 00 04-07 00:00 :00 No [id number] 550mg Take 1 tablet by mouth 2 (two) times daily with meals. [facility] methylPREDN ISolone (MEDROL, HEENA,) 4 mg tablets 2019-07 00:00: 00 09-17 00:00 :00 No [id number] Take by mouth SEE-INSTRU CTIONS. follow package directions [facility] methocarbam oL 500 mg tablet 2019-07 00:00: 00 07-04 05:59 :00 No [id number] 500mg Take 1 tablet by mouth 3 (three) times daily for 5 days. [facility] proMETHazin e (PHENERGAN) tablet 25 mg 2019-07 04:45: 00 06-13 03:37 :00 No 25mg 25 mg, Oral, ONCE, 1 dose, 06/12/20 at 2245, ROSELYN [facility] ondansetron (ZOFRAN (PF)) injection 4 mg 2019-07 03:00: 00 06-13 01:59 :00 No 4mg 4 mg, Slow IV Push, ONCE, 1 dose, 06/12/20 at 2100, ROSELYN [facility] ketorolac (TORADOL) injection 15 mg 2019-07 03:00: 00 06-13 01:58 :00 No 15mg 15 mg, Intramuscu lar, ONCE, 1 dose, 06/12/20 at 2100, ROSELYN
Fa culty member approving Restricted medication : LEEANNE WISE [facility] morpHINE injection 4 mg 2019-07 01:30: 00 06-13 00:41 :00 No 4mg 4 mg, Slow IV Push, ONCE, 1 dose, 06/12/20 at 1930, STAT [facility] ondansetron (ZOFRAN (PF)) injection 4 mg 2019-07 00:45: 00 06-13 00:41 :00 No 4mg 4 mg, Slow IV Push, ONCE, 1 dose, 06/12/20 at 1845, ROSELYN [facility] NaCl 0.9% (NS) bolus infusion 1,000 mL 2019-07 23:45: 00 06-13 03:54 :00 No 1000mL at 999 mL/hr, 1,000 mL, IV Infusion, ONCE, 1 dose, 06/12/20 at 1745, ROSELYN [facility] dicyclomine 20 mg tablet 2019-07 00:00: 00 04-07 00:00 :00 No [id number] 20mg Take 1 tablet by mouth 4 (four) times daily as needed for Abdominal pain. [facility] proMETHazin e 25 mg tablet 2019-07 00:00: 00 09-17 00:00 :00 No [id number] 25mg Take 1 tablet by mouth every 6 (six) hours as needed for Nausea and Vomiting (N/V). [facility] famotidine 20 mg tablet 2019-07 00:00: 00 06-27 05:59 :00 No [id number] 20mg Take 1 tablet by mouth at bedtime for 14 days. [facility] haloperidol lactate (HALDOL) injection 2.5 mg 2019-07 01:00: 00 05-16 23:51 :00 No 2.5mg 2.5 mg, Intravenou s, ONCE, 1 dose, 05/16/20 at 1900, STAT [facility] NaCl 0.9% (NS) bolus infusion 1,000 mL 2019-07 23:45: 00 05-17 00:54 :00 No 1000mL at 999 mL/hr, 1,000 mL, IV Infusion, ONCE, 1 dose, [facility] 05/16/20 at 1745, ROSELYN [facility] proMETHazin e (PHENERGAN) 25 mg suppository 2019-07 00:00: 00 Yes [id number] 25mg Insert 1 Suppositor y into rectum every 4 (four) hours as needed for Nausea and Vomiting (N/V). [facility] ondansetron (ZOFRAN (PF)) injection 4 mg 2019-07 07:30: 00 05-15 06:26 :00 No 4mg 4 mg, Slow IV Push, ONCE, 1 dose, [place] [facility]130[facility] (OMNIPAQUE 350 BULK-100 mL) injection 120 mL 2019-07 07:00: 00 05-15 06:52 :00 No 120mL 120 mL, Intravenou s, ONCE, 1 dose, [place] 05/15/20 at 0100, Routine [facility] ondansetron (ZOFRAN (PF)) injection 4 mg 2019-07 06:30: 00 05-15 05:52 :00 No 4mg 4 mg, Slow IV Push, ONCE, 1 dose, [place] 05/15/20 at 0030, [facility] ALPRAZolam (XANAX) 2 mg tablet 2019-07 05:30: 59 Yes 2mg Take 2 mg by mouth at bedtime. [facility] zolpidem 5 mg tablet 6-15 00:00: 00 04-07 00:00 :00 No 5mg Take 5 mg by mouth. [facility] Immunizations Ordered Immunization Name Filled Immunization Name Date Status Comments Source Covid-19 Vaccine Moderna (Spikevax), Mrna-lnp, Zackery Protein, Pf Unknown Completed [facility] Covid-19 Vaccine Moderna (Spikevax), Mrna-lnp, Zackery Protein, Pf Unknown Completed Kellee Davies Covid-19 Vaccine Moderna (Spikevax), Mrna-lnp, Zackery Protein, Pf Unknown Completed [facility] - External Covid-19 Vaccine Moderna (Spikevax), Mrna-lnp, Zackery Protein, Pf Unknown Completed Kellee Seybold - External Covid-19 Vaccine Moderna (Spikevax), Mrna-lnp, Zackery Protein, Pf Unknown Completed [facility] - External Covid-19 Vaccine Moderna (Spikevax), Mrna-lnp, Zackery Protein, Pf Unknown Completed [facility]ellee Seold - External Covid-19 Vaccine Moderna (Spikevax), Mrna-lnp, Zackery Protein, Pf Unknown Completed [facility] - External Covid-19 Vaccine Moderna (Spikevax), Mrna-lnp, Zackery Protein, Pf Unknown Completed [facility] - External Covid-19 Vaccine Moderna (Spikevax), Mrna-lnp, Zackery Protein, Pf Unknown Completed [facility] - External Covid-19 Vaccine Moderna (Spikevax), Mrna-lnp, Zackery Protein, Pf Unknown Completed [facility] - External Covid-19 Vaccine Moderna (Spikevax), Mrna-lnp, Zackery Protein, Pf Unknown Completed [facility] - External Covid-19 Vaccine Moderna (Spikevax), Mrna-lnp, Zackery Protein, Pf Unknown Completed [facility] - External Covid-19 Vaccine Moderna (Spikevax), Mrna-lnp, Zackery Protein, Pf Unknown Completed [facility] - External Covid-19 Vaccine Moderna (Spikevax), Mrna-lnp, Zackery Protein, Pf Unknown [facility] Vital Signs Vital Name Observation Time Observation Value Comments S ource Systolic blood pressure 2025-01-07 20:01:00 126 mm[Hg] [facility] - External Diastolic blood pressure 2025-01-07 20:01:00 82 mm[Hg] [facility] - External Heart rate 2025-01-07 20:01:00 86 /min [facility]ellee [facility] - External Body temperature 2025-01-07 20:01:00 36.61 [...] Systolic blood pressure 2024-12-16 02:02:00 158 mm[Hg] [facility] Diastolic blood pressure 2024-12-16 02:02:00 91 mm[Hg] [facility] Heart rate 2024-12-16 02:02:00 102 /min [facility] Body temperature 2024-12-16 02:02:00 37 Latanya [facility] Respiratory rate 2024-12-16 02:02:00 17 /min [facility] Body height 2024-12-16 02:02:00 157.5 cm [facility] Body weight 2024-12-16 02:02:00 108.863 kg [facility] BMI 2024-12-16 02:02:00 43.90 kg/m2 [facility] Oxygen saturation in Arterial blood by Pulse oximetry 2024-12-16 02:02:00 100 /min [facility] Systolic blood pressure 2024-12-14 21:48:00 136 mm[Hg] [facility] Diastolic blood pressure 2024-12-14 21:48:00 74 mm[Hg] [facility] Heart rate 2024-12-14 21:48:00 88 /min [facility] Body temperature 2024-12-14 21:48:00 36.67 Latanya [facility] Respiratory rate 2024-12-14 21:48:00 16 /min [facility] Oxygen saturation in Arterial blood by Pulse oximetry 2024-12-14 21:48:00 98 /min [facility] Body height 2024-12-14 18:27:00 157.5 cm [facility] Body weight 2024-12-14 18:27:00 108.863 kg [facility] BMI 2024-12-14 18:27:00 43.90 kg/m2 [facility] Height 2024-12-10 18:25:00 157.117213 cm [facility] Weight 2024-12-10 18:25:00 108.050648 kg [facility] BMI (Body Mass Index) 2024-12-10 18:25:00 43.9 kg/m2 [facility] Systolic blood pressure 2024-12-09 02:28:00 129 mm[Hg] [facility] Diastolic blood pressure 2024-12-09 02:28:00 74 mm[Hg] [facility] Heart rate 2024-12-09 02:28:00 88 /min [facility] Respiratory rate 2024-12-09 02:28:00 25 /min [facility] Oxygen saturation in Arterial blood by Pulse oximetry 2024-12-09 02:28:00 95 /min [facility] Body temperature 2024-12-09 00:53:00 36.61 Latanya [facility] Body height 2024-12-09 00:53:00 157.5 cm [facility] Body weight 2024-12-09 00:53:00 108.863 kg [facility] BMI 2024-12-09 00:53:00 43.90 kg/m2 [facility] Systolic blood pressure 2024-11-27 16:12:00 99 mm[Hg] [facility] Diastolic blood pressure 2024-11-27 16:12:00 54 mm[Hg] [facility] Heart rate 2024-11-27 16:12:00 60 /min [facility] Body temperature 2024-11-27 16:12:00 36.28 Latanya [facility] Respiratory rate 2024-11-27 16:12:00 18 /min [facility] Oxygen saturation in Arterial blood by Pulse oximetry 2024-11-27 16:12:00 96 /min [facility] Body height 2024-11-27 03:49:00 157.5 cm [facility] Body weight 2024-11-27 03:49:00 108.41 kg [facility] BMI 2024-11-27 03:49:00 43.71 kg/m2 [facility] Height 2024-11-15 13:18:00 157.378599 cm [facility] Weight 2024-11-15 13:18:00 108.972273 kg [facility] BMI (Body Mass Index) 2024-11-15 13:18:00 43.9 kg/m2 [facility] Systolic blood pressure 2024-11-15 01:43:00 165 mm[Hg] [facility] Diastolic blood pressure 2024-11-15 01:43:00 115 mm[Hg] [facility] Heart rate 2024-11-15 01:43:00 87 /min [facility] Body temperature 2024-11-15 01:43:00 36.72 Latanya [facility] Respiratory rate 2024-11-15 01:43:00 17 /min [facility] Body height 2024-11-15 01:43:00 157.5 cm [facility] Body weight 2024-11-15 01:43:00 108.41 kg [facility] BMI 2024-11-15 01:43:00 43.71 kg/m2 [facility] Oxygen saturation in Arterial blood by Pulse oximetry 2024-11-15 01:43:00 98 /min [facility] Body temperature 2024-11-11 05:30:00 37.17 Latanya [facility] Systolic blood pressure 2024-11-11 05:02:00 141 mm[Hg] [facility] Diastolic blood pressure 2024-11-11 05:02:00 100 mm[Hg] [facility] Heart rate 2024-11-11 05:02:00 76 /min [facility] Respiratory rate 2024-11-11 05:02:00 21 /min [facility] Oxygen saturation in Arterial blood by Pulse oximetry 2024-11-11 05:02:00 96 /min [facility] Body height 2024-11-11 00:53:00 157.5 cm [facility] Body weight 2024-11-11 00:53:00 108.41 kg [facility] BMI 2024-11-11 00:53:00 43.71 kg/m2 [facility] Systolic blood pressure 2024-11-04 19:00:00 134 mm[Hg] [facility] Diastolic blood pressure 2024-11-04 19:00:00 85 mm[Hg] [facility] Heart rate 2024-11-04 19:00:00 86 /min [facility] Body temperature 2024-11-04 19:00:00 36.94 Latanya [facility] Oxygen saturation in Arterial blood by Pulse oximetry 2024-11-04 19:00:00 98 /min [facility] Respiratory rate 2024-11-04 08:24:00 16 /min [facility] Body height 2024-11-03 17:28:00 157.5 cm [facility] Body weight 2024-11-03 17:28:00 108.7 kg [facility] BMI 2024-11-03 17:28:00 43.83 kg/m2 [facility] Systolic blood pressure 2024-11-03 21:17:00 123 mm[Hg] [facility] Diastolic blood pressure 2024-11-03 21:17:00 74 mm[Hg] [facility] Heart rate 2024-11-03 21:17:00 72 /min [facility] Body temperature 2024-11-03 21:17:00 37.11 Latanya [facility] Respiratory rate 2024-11-03 21:17:00 18 /min [facility] Oxygen saturation in Arterial blood by Pulse oximetry 2024-11-03 21:17:00 98 /min [facility] Body height 2024-11-03 17:28:00 157.5 cm [facility] Body weight 2024-11-03 17:28:00 108.7 kg [facility] BMI 2024-11-03 17:28:00 43.83 kg/m2 [facility] Heart rate 2024-10-24 04:50:00 77 /min [facility] Body temperature 2024-10-24 04:50:00 36.83 Latanya [facility] Respiratory rate 2024-10-24 04:50:00 21 /min [facility] Oxygen saturation in Arterial blood by Pulse oximetry 2024-10-24 04:50:00 96 /min [facility] Systolic blood pressure 2024-10-24 04:15:00 146 mm[Hg] [facility] Diastolic blood pressure 2024-10-24 04:15:00 90 mm[Hg] [facility] Body height 2024-10-24 01:16:00 157.5 cm [facility] Body weight 2024-10-24 01:16:00 108.863 kg [facility] BMI 2024-10-24 01:16:00 43.90 kg/m2 [facility] Systolic blood pressure 2024-10-23 15:10:00 132 mm[Hg] [facility] - External Diastolic blood pressure 2024-10-23 15:10:00 82 mm[Hg] [facility]ellee Sey[facility] - External Heart rate 2024-10-23 15:10:00 79 /min Kellee ybold - External Body temperature 2024-10-23 15:10:00 36.72 Latanya Kellee Ariasybold - External Respiratory rate 2024-10-23 15:10:00 18 /min Kellee ybold - External Body height 2024-10-23 15:10:00 157.5 cm Kellee Ariasybold - External Body weight 2024-10-23 15:10:00 97.433 kg Kellee Seybold - External BMI 2024-10-23 15:10:00 39.29 kg/m2 Kellee Seybold - External Oxygen saturation in Arterial blood by Pulse oximetry 2024-10-23 15:10:00 97 /min Kellee Ariasybold - External BMI (Body Mass Index) 2024-10-14 05:00:00 45.0 kg/m2 [facility] Weight 2024-10-14 03:02:00 112.300 kg [facility] Height 2024-10-13 18:55:00 157.735607 cm [facility] Systolic blood pressure 2024-10-13 07:35:00 135 mm[Hg] [facility] Diastolic blood pressure 2024-10-13 07:35:00 87 mm[Hg] [facility] Heart rate 2024-10-13 07:35:00 86 /min [facility] Body temperature 2024-10-13 07:35:00 36.72 Latanya [facility] Respiratory rate 2024-10-13 07:35:00 19 /min [facility] Oxygen saturation in Arterial blood by Pulse oximetry 2024-10-13 07:35:00 98 /min [facility] Body height 2024-10-13 03:27:00 157.5 cm [facility] Body weight 2024-10-13 03:27:00 104.327 kg [facility] BMI 2024-10-13 03:27:00 42.07 kg/m2 [facility] Body temperature 2024-07-19 07:17:00 36.56 Latanya [facility] Heart rate 2024-07-19 07:14:00 74 /min [facility] Respiratory rate 2024-07-19 07:14:00 27 /min [facility] Oxygen saturation in Arterial blood by Pulse oximetry 2024-07-19 07:14:00 100 /min [facility] Systolic blood pressure 2024-07-19 07:00:00 123 mm[Hg] [facility] Diastolic blood pressure 2024-07-19 07:00:00 93 mm[Hg] [facility] Body height 2024-07-19 04:44:00 157.5 cm [facility] Body weight 2024-07-19 04:44:00 104.327 kg [facility] BMI 2024-07-19 04:44:00 42.07 kg/m2 [facility] Systolic blood pressure 2024-07-04 07:00:00 132 mm[Hg] [facility] Diastolic blood pressure 2024-07-04 07:00:00 98 mm[Hg] [facility] Heart rate 2024-07-04 07:00:00 85 /min [facility] Body temperature 2024-07-04 07:00:00 36.78 Latanya [facility] Respiratory rate 2024-07-04 07:00:00 18 /min [facility] Oxygen saturation in Arterial blood by Pulse oximetry 2024-07-04 07:00:00 94 /min [facility] Body height 2024-07-04 01:53:00 157.5 cm [facility] Body weight 2024-07-04 01:53:00 105.688 kg [facility] BMI 2024-07-04 01:53:00 42.62 kg/m2 [facility] Systolic blood pressure 2024-06-21 08:00:00 180 mm[Hg] [facility] Diastolic blood pressure 2024-06-21 08:00:00 107 mm[Hg] [facility] Heart rate 2024-06-21 08:00:00 89 /min [facility] Body temperature 2024-06-21 08:00:00 37.11 Latanya [facility] Respiratory rate 2024-06-21 08:00:00 22 /min [facility] Body height 2024-06-21 08:00:00 157.5 cm [facility] Body weight 2024-06-21 08:00:00 108.41 kg [facility] BMI 2024-06-21 08:00:00 43.71 kg/m2 [facility] Oxygen saturation in Arterial blood by Pulse oximetry 2024-06-21 08:00:00 100 /min [facility] Heart rate 2024-06-15 06:22:00 87 /min [facility] Body temperature 2024-06-15 06:22:00 37.11 Latanya [facility] Oxygen saturation in Arterial blood by Pulse oximetry 2024-06-15 06:22:00 96 /min [facility] Systolic blood pressure 2024-06-15 06:00:00 137 mm[Hg] [facility] Diastolic blood pressure 2024-06-15 06:00:00 85 mm[Hg] [facility] Respiratory rate 2024-06-15 06:00:00 15 /min [facility] Body height 2024-06-15 03:23:00 157.5 cm [facility] Body weight 2024-06-15 03:23:00 109.997 kg [facility] BMI 2024-06-15 03:23:00 44.35 kg/m2 [facility] Body temperature 2024-06-07 08:35:48 36.89 Latanya [facility] Systolic blood pressure 2024-06-07 08:00:00 129 mm[Hg] [facility] Diastolic blood pressure 2024-06-07 08:00:00 108 mm[Hg] [facility] Heart rate 2024-06-07 08:00:00 69 /min [facility] Respiratory rate 2024-06-07 08:00:00 24 /min [facility] Oxygen saturation in Arterial blood by Pulse oximetry 2024-06-07 08:00:00 97 /min [facility] Body height 2024-06-07 04:02:00 157.5 cm [facility] Body weight 2024-06-07 04:02:00 105.688 kg [facility] BMI 2024-06-07 04:02:00 42.62 kg/m2 [facility] Systolic blood pressure 2024-05-19 19:32:00 130 mm[Hg] [facility] Diastolic blood pressure 2024-05-19 19:32:00 74 mm[Hg] [facility] Heart rate 2024-05-19 19:32:00 84 /min [facility] Respiratory rate 2024-05-19 19:32:00 18 /min [facility] Oxygen saturation in Arterial blood by Pulse oximetry 2024-05-19 19:32:00 99 /min [facility] Body temperature 2024-05-19 17:44:00 36.83 Latanya [facility] Body height 2024-05-19 17:44:00 157.5 cm [facility] Body weight 2024-05-19 17:44:00 108.863 kg [facility] BMI 2024-05-19 17:44:00 43.90 kg/m2 [facility] Systolic blood pressure 2024-05-18 16:21:00 126 mm[Hg] Kellee Ariasybold - External Diastolic blood pressure 2024-05-18 16:21:00 78 mm[Hg] Kellee Ariasybold - External Heart rate 2024-05-18 16:21:00 95 /min Kellee ybold - External Body temperature 2024-05-18 16:21:00 35.94 Latanya Kellee Ariasybold - External Respiratory rate 2024-05-18 16:21:00 15 /min Kellee ybold - External Body height 2024-05-18 16:21:00 157.5 cm Kellee Buckley - External Body weight 2024-05-18 16:21:00 110.678 kg Kellee Buckley - External BMI 2024-05-18 16:21:00 44.63 kg/m2 Kellee Buckley - External Heart rate 2024-05-18 04:14:00 111 /min [facility] Body temperature 2024-05-18 04:14:00 37 Latanya [facility] Respiratory rate 2024-05-18 04:14:00 27 /min [facility] Oxygen saturation in Arterial blood by Pulse oximetry 2024-05-18 04:14:00 94 /min [facility] Systolic blood pressure 2024-05-18 04:00:00 141 mm[Hg] [facility] Diastolic blood pressure 2024-05-18 04:00:00 122 mm[Hg] [facility] Body height 2024-05-18 00:33:00 157.5 cm [facility] Body weight 2024-05-18 00:33:00 107.502 kg [facility] BMI 2024-05-18 00:33:00 43.35 kg/m2 [facility] Heart rate 2024-05-08 02:05:00 91 /min [facility] Respiratory rate 2024-05-08 02:05:00 22 /min [facility] Oxygen saturation in Arterial blood by Pulse oximetry 2024-05-08 02:05:00 95 /min [facility] Systolic blood pressure 2024-05-08 02:00:00 140 mm[Hg] [facility] Diastolic blood pressure 2024-05-08 02:00:00 86 mm[Hg] [facility] Body temperature 2024-05-07 23:46:00 36.78 Latanya [facility] Body height 2024-05-07 23:46:00 157.5 cm [facility] Body weight 2024-05-07 23:46:00 107.729 kg [facility] BMI 2024-05-07 23:46:00 43.44 kg/m2 [facility] Height 2024-04-10 16:28:00 157.909448 cm [facility] Weight 2024-04-10 16:28:00 104.149595 kg [facility] BMI (Body Mass Index) 2024-04-10 16:28:00 42.1 kg/m2 [facility] Systolic blood pressure 2024-04-09 01:30:00 134 mm[Hg] [facility] Diastolic blood pressure 2024-04-09 01:30:00 64 mm[Hg] [facility] Heart rate 2024-04-09 01:30:00 102 /min [facility] Body temperature 2024-04-09 01:30:00 36.61 Latanya [facility] Respiratory rate 2024-04-09 01:30:00 17 /min [facility] Oxygen saturation in Arterial blood by Pulse oximetry 2024-04-09 01:30:00 96 /min [facility] Body height 2024-04-08 22:31:00 157.5 cm [facility] Body weight 2024-04-08 22:31:00 104.327 kg [facility] BMI 2024-04-08 22:31:00 42.07 kg/m2 [facility] Body temperature 2023-12-13 14:10:00 36.72 Latanya Kellee [...] Systolic blood pressure 2023-10-11 05:00:00 126 mm[Hg] [facility] Diastolic blood pressure 2023-10-11 05:00:00 87 mm[Hg] [facility] Heart rate 2023-10-11 05:00:00 94 /min [facility] Respiratory rate 2023-10-11 05:00:00 22 /min [facility] Oxygen saturation in Arterial blood by Pulse oximetry 2023-10-11 05:00:00 98 /min [facility] Body temperature 2023-10-11 02:28:00 37.22 Latanya [facility] Body height 2023-10-11 02:28:00 157.5 cm [facility] Body weight 2023-10-11 02:28:00 99.791 kg [facility] BMI 2023-10-11 02:28:00 40.24 kg/m2 [facility] Systolic blood pressure 2023-07-02 04:10:00 147 mm[Hg] [facility] Diastolic blood pressure 2023-07-02 04:10:00 89 mm[Hg] [facility] Heart rate 2023-07-02 04:10:00 73 /min [facility] Respiratory rate 2023-07-02 04:10:00 19 /min [facility] Oxygen saturation in Arterial blood by Pulse oximetry 2023-07-02 04:10:00 98 /min [facility] Body temperature 2023-07-02 01:47:00 36.78 Latanya [facility] Body height 2023-07-02 01:47:00 160 cm [facility] Body weight 2023-07-02 01:47:00 97.659 kg [facility] BMI 2023-07-02 01:47:00 38.14 kg/m2 [facility] Systolic blood pressure 2023-05-10 01:00:00 133 mm[Hg] [facility] Diastolic blood pressure 2023-05-10 01:00:00 81 mm[Hg] [facility] Heart rate 2023-05-10 01:00:00 64 /min [facility] Respiratory rate 2023-05-10 01:00:00 21 /min [facility] Oxygen saturation in Arterial blood by Pulse oximetry 2023-05-10 01:00:00 96 /min [facility] Body temperature 2023-05-09 22:43:00 36.67 Latanya [facility] Body height 2023-05-09 22:43:00 157.5 cm [facility] Body weight 2023-05-09 22:43:00 99.791 kg [facility] BMI 2023-05-09 22:43:00 40.24 kg/m2 [facility] Systolic blood pressure 2023-05-01 01:00:00 107 mm[Hg] [facility] Diastolic blood pressure 2023-05-01 01:00:00 80 mm[Hg] [facility] Heart rate 2023-05-01 01:00:00 80 /min [facility] Body temperature 2023-05-01 01:00:00 37.06 Latanya [facility] Respiratory rate 2023-05-01 01:00:00 16 /min [facility] Oxygen saturation in Arterial blood by Pulse oximetry 2023-05-01 01:00:00 98 /min [facility] Body height 2023-04-30 22:16:00 157.5 cm [facility] Body weight 2023-04-30 22:16:00 95.255 kg [facility] BMI 2023-04-30 22:16:00 38.41 kg/m2 [facility] Systolic blood pressure 2023-04-17 02:00:00 147 mm[Hg] [facility] Diastolic blood pressure 2023-04-17 02:00:00 83 mm[Hg] [facility] Heart rate 2023-04-17 02:00:00 90 /min [facility] Respiratory rate 2023-04-17 02:00:00 18 /min [facility] Oxygen saturation in Arterial blood by Pulse oximetry 2023-04-17 02:00:00 96 /min [facility] Body temperature 2023-04-17 01:33:00 36.78 Latanya [facility] Body height 2023-04-17 01:33:00 157.5 cm [facility] Body weight 2023-04-17 01:33:00 99.791 kg [facility] BMI 2023-04-17 01:33:00 40.24 kg/m2 [facility] Systolic blood pressure 2023-04-09 01:04:48 135 mm[Hg] [facility] Diastolic blood pressure 2023-04-09 01:04:48 84 mm[Hg] [facility] Heart rate 2023-04-09 01:04:48 67 /min [facility] Respiratory rate 2023-04-09 01:04:48 16 /min [facility] Oxygen saturation in Arterial blood by Pulse oximetry 2023-04-09 01:04:48 99 /min [facility] Body temperature 2023-04-08 22:16:00 36.67 Latanya [facility] Body height 2023-04-08 22:16:00 157.5 cm [facility] Body weight 2023-04-08 22:16:00 99.791 kg [facility] BMI 2023-04-08 22:16:00 40.24 kg/m2 [facility] Systolic blood pressure 2023-03-10 05:00:00 156 mm[Hg] [facility] Diastolic blood pressure 2023-03-10 05:00:00 94 mm[Hg] [facility] Heart rate 2023-03-10 05:00:00 75 /min [facility] Respiratory rate 2023-03-10 05:00:00 21 /min [facility] Oxygen saturation in Arterial blood by Pulse oximetry 2023-03-10 05:00:00 97 /min [facility] Body temperature 2023-03-10 01:20:00 36.72 Latanya [facility] Body height 2023-03-10 01:20:00 157.5 cm [facility] Body weight 2023-03-10 01:20:00 100.381 kg [facility] BMI 2023-03-10 01:20:00 40.48 kg/m2 [facility] Systolic blood pressure 2023-03-02 06:00:00 126 mm[Hg] [facility] Diastolic blood pressure 2023-03-02 06:00:00 79 mm[Hg] [facility] Heart rate 2023-03-02 06:00:00 69 /min [facility] Respiratory rate 2023-03-02 06:00:00 23 /min [facility] Oxygen saturation in Arterial blood by Pulse oximetry 2023-03-02 06:00:00 94 /min [facility] Body temperature 2023-03-02 00:34:00 37.28 Latanya [facility] Body height 2023-03-02 00:34:00 157.5 cm [facility] Body weight 2023-03-02 00:34:00 99.791 kg [facility] BMI 2023-03-02 00:34:00 40.24 kg/m2 [facility] Systolic blood pressure 2023-02-18 06:46:00 126 mm[Hg] [facility] Diastolic blood pressure 2023-02-18 06:46:00 77 mm[Hg] [facility] Heart rate 2023-02-18 06:46:00 79 /min [facility] Respiratory rate 2023-02-18 06:46:00 16 /min [facility] Oxygen saturation in Arterial blood by Pulse oximetry 2023-02-18 06:46:00 95 /min [facility] Body temperature 2023-02-18 03:55:00 36.72 Latanya [facility] Body height 2023-02-18 03:55:00 157.5 cm [facility] Body weight 2023-02-18 03:55:00 102.331 kg [facility] BMI 2023-02-18 03:55:00 41.26 kg/m2 [facility] Systolic blood pressure 2023-02-17 16:20:00 113 mm[Hg] [facility] Diastolic blood pressure 2023-02-17 16:20:00 65 mm[Hg] [facility] Heart rate 2023-02-17 16:20:00 65 /min [facility] Body temperature 2023-02-17 16:20:00 36.83 Latanya [facility] Respiratory rate 2023-02-17 16:20:00 16 /min [facility] Oxygen saturation in Arterial blood by Pulse oximetry 2023-02-17 16:20:00 97 /min [facility] Body weight 2023-02-17 08:50:00 99.973 kg [facility] BMI 2023-02-17 08:50:00 40.31 kg/m2 [facility] Body height 2023-02-16 01:19:00 157.5 cm [facility] Systolic blood pressure 2022-01-10 01:24:00 120 mm[Hg] [facility] Diastolic blood pressure 2022-01-10 01:24:00 76 mm[Hg] [facility] Heart rate 2022-01-10 01:24:00 73 /min [facility] Respiratory rate 2022-01-10 01:24:00 16 /min [facility] Oxygen saturation in Arterial blood by Pulse oximetry 2022-01-10 01:24:00 96 /min [facility] Body weight 2022-01-09 21:39:00 104.327 kg [facility] BMI 2022-01-09 21:39:00 42.07 kg/m2 [facility] Systolic blood pressure 2021-12-14 07:22:00 121 mm[Hg] [facility] Diastolic blood pressure 2021-12-14 07:22:00 86 mm[Hg] [facility] Heart rate 2021-12-14 07:22:00 80 /min [facility] Respiratory rate 2021-12-14 07:22:00 17 /min [facility] Oxygen saturation in Arterial blood by Pulse oximetry 2021-12-14 07:22:00 96 /min [facility] Body temperature 2021-12-14 03:06:00 36.72 Latanya [facility] Body height 2021-12-14 03:06:00 157.5 cm [facility] Body weight 2021-12-14 03:06:00 95.255 kg [facility] BMI 2021-12-14 03:06:00 38.41 kg/m2 [facility] Systolic blood pressure 2021-11-12 04:15:00 112 mm[Hg] [facility] Diastolic blood pressure 2021-11-12 04:15:00 75 mm[Hg] [facility] Heart rate 2021-11-12 04:15:00 92 /min [facility] Body temperature 2021-11-12 04:15:00 36.44 Latanya [facility] Respiratory rate 2021-11-12 04:15:00 18 /min [facility] Oxygen saturation in Arterial blood by Pulse oximetry 2021-11-12 04:15:00 98 /min [facility] Body height 2021-11-12 00:41:00 157.5 cm [facility] Body weight 2021-11-12 00:41:00 95.255 kg [facility] BMI 2021-11-12 00:41:00 38.41 kg/m2 [facility] Systolic blood pressure 2021-09-12 01:31:00 142 mm[Hg] [facility] Diastolic blood pressure 2021-09-12 01:31:00 80 mm[Hg] [facility] Heart rate 2021-09-12 01:31:00 78 /min [facility] Body temperature 2021-09-12 01:31:00 36.72 Latanya [facility] Respiratory rate 2021-09-12 01:31:00 18 /min [facility] Body height 2021-09-12 01:31:00 157.5 cm [facility] Body weight 2021-09-12 01:31:00 99.791 kg [facility] BMI 2021-09-12 01:31:00 40.24 kg/m2 [facility] Oxygen saturation in Arterial blood by Pulse oximetry 2021-09-12 01:31:00 97 /min [facility] Systolic blood pressure 2021-08-15 08:20:00 120 mm[Hg] [facility] Diastolic blood pressure 2021-08-15 08:20:00 74 mm[Hg] [facility] Heart rate 2021-08-15 08:20:00 69 /min [facility] Respiratory rate 2021-08-15 08:20:00 20 /min [facility] Oxygen saturation in Arterial blood by Pulse oximetry 2021-08-15 08:20:00 96 /min [facility] Body temperature 2021-08-15 05:34:00 36.22 Latanya [facility] Body height 2021-08-15 05:34:00 157.5 cm [facility] Body weight 2021-08-15 05:34:00 99.791 kg [facility] BMI 2021-08-15 05:34:00 40.24 kg/m2 [facility] Systolic blood pressure 2021-05-28 10:00:00 122 mm[Hg] [facility] Diastolic blood pressure 2021-05-28 10:00:00 78 mm[Hg] [facility] Heart rate 2021-05-28 10:00:00 75 /min [facility] Respiratory rate 2021-05-28 10:00:00 20 /min [facility] Oxygen saturation in Arterial blood by Pulse oximetry 2021-05-28 10:00:00 99 /min [facility] Body temperature 2021-05-28 05:21:00 36.11 Latanya [facility] Body height 2021-05-28 05:21:00 157.5 cm [facility] Body weight 2021-05-28 05:21:00 99.791 kg [facility] BMI 2021-05-28 05:21:00 40.24 kg/m2 [facility] Systolic blood pressure 2021-04-08 21:55:00 110 mm[Hg] [facility] Diastolic blood pressure 2021-04-08 21:55:00 80 mm[Hg] [facility] Heart rate 2021-04-08 21:55:00 70 /min [facility] Body temperature 2021-04-08 21:55:00 36.28 Latanya [facility] Respiratory rate 2021-04-08 21:55:00 16 /min [facility] Oxygen saturation in Arterial blood by Pulse oximetry 2021-04-08 21:55:00 94 /min [facility] Body height 2021-04-08 03:00:00 157.5 cm [facility] Body weight 2021-04-08 03:00:00 105.688 kg [facility] BMI 2021-04-08 03:00:00 42.62 kg/m2 [facility] Systolic blood pressure 2021-01-12 09:00:00 147 mm[Hg] [facility] Diastolic blood pressure 2021-01-12 09:00:00 71 mm[Hg] [facility] Heart rate 2021-01-12 09:00:00 103 /min [facility] Respiratory rate 2021-01-12 09:00:00 18 /min [facility] Oxygen saturation in Arterial blood by Pulse oximetry 2021-01-12 09:00:00 97 /min [facility] Body temperature 2021-01-12 07:48:00 37.06 Latanya [facility] Body height 2021-01-12 07:48:00 157.5 cm [facility] Body weight 2021-01-12 07:48:00 102.513 kg [facility] BMI 2021-01-12 07:48:00 41.34 kg/m2 [facility] Systolic blood pressure 2020-12-11 01:30:00 136 mm[Hg] [facility] Diastolic blood pressure 2020-12-11 01:30:00 88 mm[Hg] [facility] Heart rate 2020-12-11 01:30:00 99 /min [facility] Respiratory rate 2020-12-11 01:30:00 28 /min [facility] Oxygen saturation in Arterial blood by Pulse oximetry 2020-12-11 01:30:00 97 /min [facility] Body temperature 2020-12-10 22:11:00 36.78 Latanya [facility] Body weight 2020-12-10 22:11:00 99.791 kg [facility] BMI 2020-12-10 22:11:00 40.24 kg/m2 [facility] Systolic blood pressure 2020-12-04 21:30:00 126 mm[Hg] [facility] Diastolic blood pressure 2020-12-04 21:30:00 79 mm[Hg] [facility] Heart rate 2020-12-04 21:30:00 91 /min [facility] Respiratory rate 2020-12-04 21:30:00 20 /min [facility] Oxygen saturation in Arterial blood by Pulse oximetry 2020-12-04 21:30:00 96 /min [facility] Body temperature 2020-12-04 19:49:00 37.06 Latanya [facility] Body height 2020-12-04 19:49:00 157.5 cm [facility] Body weight 2020-12-04 19:49:00 99.791 kg [facility] BMI 2020-12-04 19:49:00 40.24 kg/m2 [facility] Systolic blood pressure 2020-11-04 01:42:00 142 mm[Hg] [facility] Diastolic blood pressure 2020-11-04 01:42:00 100 mm[Hg] [facility] Heart rate 2020-11-04 01:42:00 109 /min [facility] Body temperature 2020-11-04 01:42:00 36.78 Latanya [facility] Respiratory rate 2020-11-04 01:42:00 20 /min [facility] Body weight 2020-11-04 01:42:00 99.791 kg [facility] BMI 2020-11-04 01:42:00 40.24 kg/m2 [facility] Oxygen saturation in Arterial blood by Pulse oximetry 2020-11-04 01:42:00 98 /min [facility] Systolic blood pressure 2020-09-17 15:52:00 138 mm[Hg] [facility] Diastolic blood pressure 2020-09-17 15:52:00 94 mm[Hg] [facility] Heart rate 2020-09-17 15:52:00 98 /min [facility] Body temperature 2020-09-17 15:52:00 36.94 Latanya [facility] Respiratory rate 2020-09-17 15:52:00 20 /min [facility] Body weight 2020-09-17 15:52:00 95.255 kg [facility] BMI 2020-09-17 15:52:00 38.41 kg/m2 [facility] Oxygen saturation in Arterial blood by Pulse oximetry 2020-09-17 15:52:00 97 /min [facility] Systolic blood pressure 2020-09-17 15:52:00 138 mm[Hg] [facility] Diastolic blood pressure 2020-09-17 15:52:00 94 mm[Hg] [facility] Heart rate 2020-09-17 15:52:00 98 /min [facility] Body temperature 2020-09-17 15:52:00 36.94 Latanya [facility] Respiratory rate 2020-09-17 15:52:00 20 /min [facility] Body weight 2020-09-17 15:52:00 95.255 kg [facility] BMI 2020-09-17 15:52:00 38.41 kg/m2 [facility] Oxygen saturation in Arterial blood by Pulse oximetry 2020-09-17 15:52:00 97 /min [facility] Systolic blood pressure 2020-09-07 06:35:00 123 mm[Hg] [facility] Diastolic blood pressure 2020-09-07 06:35:00 56 mm[Hg] [facility] Heart rate 2020-09-07 06:35:00 97 /min [facility] Body temperature 2020-09-07 06:35:00 36.28 Latanya [facility] Respiratory rate 2020-09-07 06:35:00 18 /min [facility] Body weight 2020-09-07 06:35:00 99.791 kg [facility] BMI 2020-09-07 06:35:00 40.24 kg/m2 [facility] Oxygen saturation in Arterial blood by Pulse oximetry 2020-09-07 06:35:00 98 /min [facility] Systolic blood pressure 2020-09-07 06:35:00 123 mm[Hg] [facility] Diastolic blood pressure 2020-09-07 06:35:00 56 mm[Hg] [facility] Heart rate 2020-09-07 06:35:00 97 /min [facility] Body temperature 2020-09-07 06:35:00 36.28 Latanya [facility] Respiratory rate 2020-09-07 06:35:00 18 /min [facility] Body weight 2020-09-07 06:35:00 99.791 [facility] [place] BMI 2020-09-07 06:35:00 40.24 kg/m2 [facility] [place] Oxygen saturation in Arterial blood by Pulse oximetry 2020-09-07 06:35:00 98 /min [facility] [place] Systolic blood pressure 2020-08-28 09:00:00 132 mm[Hg] [facility] [place] Diastolic blood pressure 2020-08-28 09:00:00 87 mm[Hg] [facility] [place] Heart rate 2020-08-28 09:00:00 90 /min [facility] [place] Respiratory rate 2020-08-28 09:00:00 20 /min [facility] [place] Oxygen saturation in Arterial blood by Pulse oximetry 2020-08-28 09:00:00 97 /min [facility] [place] Body temperature 2020-08-28 07:59:00 36.72 Latanya [facility] [place] Body height 2020-08-28 07:59:00 157.5 cm [facility] [place] Body weight 2020-08-28 07:59:00 99.791 kg [facility] [place] BMI 2020-08-28 07:59:00 40.24 kg/m2 [facility] [place] Systolic blood pressure 2020-08-28 09:00:00 132 mm[Hg] [facility] [place] Diastolic blood pressure 2020-08-28 09:00:00 87 mm[Hg] [facility] [place] Heart rate 2020-08-28 09:00:00 90 /min [facility] [place] Respiratory rate 2020-08-28 09:00:00 20 /min [facility] [place] Oxygen saturation in Arterial blood by Pulse oximetry 2020-08-28 09:00:00 97 /min [facility] [place] Body temperature 2020-08-28 07:59:00 36.72 Latanya [facility] [place] Body height 2020-08-28 07:59:00 157.5 cm [facility] [place] Body weight 2020-08-28 07:59:00 99.791 kg [facility] [place] BMI 2020-08-28 07:59:00 40.24 kg/m2 [facility] [place] Systolic blood pressure 2020-08-14 19:40:00 135 mm[Hg] [facility] [place] Diastolic blood pressure 2020-08-14 19:40:00 100 mm[Hg] [facility] [place] Heart rate 2020-08-14 19:40:00 68 /min [facility] [place] Body temperature 2020-08-14 19:40:00 37.11 Latanya [facility] [place] Respiratory rate 2020-08-14 19:40:00 19 /min [facility] [place] Oxygen saturation in Arterial blood by Pulse oximetry 2020-08-14 19:40:00 99 /min [facility] [place] Body height 2020-08-14 17:41:00 157.5 cm [facility] [place] Body weight 2020-08-14 17:41:00 99.791 kg [facility] [place] BMI 2020-08-14 17:41:00 40.24 kg/m2 [facility] [place] Systolic blood pressure 2020-08-14 19:40:00 135 mm[Hg] [facility] Diastolic blood pressure 2020-08-14 19:40:00 100 mm[Hg] [facility] [place] Heart rate 2020-08-14 19:40:00 68 /min [facility] [place] Body temperature 2020-08-14 19:40:00 37.11 Latanya [facility] [place] Respiratory rate 2020-08-14 19:40:00 19 /min [facility] [place] Oxygen saturation in Arterial blood by Pulse oximetry 2020-08-14 19:40:00 99 /min [facility] [place] Body height 2020-08-14 17:41:00 157.5 cm [facility] [place] Body weight 2020-08-14 17:41:00 99.791 kg [facility] [place] BMI 2020-08-14 17:41:00 40.24 kg/m2 [facility] [place] Systolic blood pressure 2020-08-11 04:00:00 106 mm[Hg] [facility] Diastolic blood pressure 2020-08-11 04:00:00 92 mm[Hg] [facility] [place] Heart rate 2020-08-11 04:00:00 90 /min [facility] [place] Respiratory rate 2020-08-11 04:00:00 16 /min [facility] [place] Oxygen saturation in Arterial blood by Pulse oximetry 2020-08-11 04:00:00 99 /min [facility] [place] Body temperature 2020-08-11 03:12:56 37.72 Latanya [facility] [place] Body height 2020-08-11 00:19:00 157.5 cm [facility] [place] Body weight 2020-08-11 00:19:00 99.791 kg [facility] [place] BMI 2020-08-11 00:19:00 40.24 kg/m2 [facility] [place] Systolic blood pressure 2020-08-11 04:00:00 106 mm[Hg] [facility] Diastolic blood pressure 2020-08-11 04:00:00 92 mm[Hg] [facility] [place] Heart rate 2020-08-11 04:00:00 90 /min [facility] [place] Respiratory rate 2020-08-11 04:00:00 16 /min [facility] [place] Oxygen saturation in Arterial blood by Pulse oximetry 2020-08-11 04:00:00 99 /min [facility] [place] Body temperature 2020-08-11 03:12:56 37.72 Latanya [facility] [place] Body height 2020-08-11 00:19:00 157.5 cm [facility] [place] Body weight 2020-08-11 00:19:00 99.791 kg [facility] [place] BMI 2020-08-11 00:19:00 40.24 kg/m2 [facility] [place] Systolic blood pressure 2020-08-07 13:16:00 100 mm[Hg] [facility] [place] Diastolic blood pressure 2020-08-07 13:16:00 69 mm[Hg] [facility] [place] Heart rate 2020-08-07 13:16:00 99 /min [facility] [place] Body temperature 2020-08-07 13:16:00 36.67 Latanya [facility] [place] Respiratory rate 2020-08-07 13:16:00 18 /min [facility] [place] Body weight 2020-08-07 13:16:00 95.255 kg [facility] [place] BMI 2020-08-07 13:16:00 38.41 kg/m2 [facility] [place] Oxygen saturation in Arterial blood by Pulse oximetry 2020-08-07 13:16:00 99 /min [facility] [place] Systolic blood pressure 2020-08-07 13:16:00 100 mm[Hg] [facility] [place] Diastolic blood pressure 2020-08-07 13:16:00 69 mm[Hg] [facility] [place] Heart rate 2020-08-07 13:16:00 99 /min [facility] [place] Body temperature 2020-08-07 13:16:00 36.67 Latanya [facility] [place] Respiratory rate 2020-08-07 13:16:00 18 /min [facility] [place] Body weight 2020-08-07 13:16:00 95.255 kg [facility] [place] BMI 2020-08-07 13:16:00 38.41 kg/m2 [facility] [place] Oxygen saturation in Arterial blood by Pulse oximetry 2020-08-07 13:16:00 99 /min [facility] [place] Systolic blood pressure 2020-07-01 02:00:00 136 mm[Hg] [facility] [place] Diastolic blood pressure 2020-07-01 02:00:00 85 mm[Hg] [facility] [place] Heart rate 2020-07-01 02:00:00 73 /min [facility] [place] Respiratory rate 2020-07-01 02:00:00 20 /min [facility] [place] Oxygen saturation in Arterial blood by Pulse oximetry 2020-07-01 02:00:00 97 /min [facility] [place] Body temperature 2020-06-30 23:36:00 36.56 Latanya [facility] [place] Body height 2020-06-30 23:36:00 157.5 cm [facility] [place] Body weight 2020-06-30 23:36:00 95.255 kg [facility] [place] BMI 2020-06-30 23:36:00 38.41 kg/m2 [facility] [place] Systolic blood pressure 2020-07-01 02:00:00 136 mm[Hg] [facility] [place] Diastolic blood pressure 2020-07-01 02:00:00 85 mm[Hg] [facility] [place] Heart rate 2020-07-01 02:00:00 73 /min [facility] [place] Respiratory rate 2020-07-01 02:00:00 20 /min [facility] [place] Oxygen saturation in Arterial blood by Pulse oximetry 2020-07-01 02:00:00 97 /min [facility] [place] Body temperature 2020-06-30 23:36:00 36.56 Latanya [facility] [place] Body height 2020-06-30 23:36:00 157.5 cm [facility] [place] Body weight 2020-06-30 23:36:00 95.255 kg [facility] [place] BMI 2020-06-30 23:36:00 38.41 kg/m2 [facility] [place] Systolic blood pressure 2020-06-28 21:57:00 151 mm[Hg] [facility] [place] Diastolic blood pressure 2020-06-28 21:57:00 88 mm[Hg] [facility] [place] Heart rate 2020-06-28 21:57:00 94 /min [facility] [place] Body temperature 2020-06-28 21:57:00 37.78 Latanya [facility] [place] Respiratory rate 2020-06-28 21:57:00 16 /min [facility] [place] Body height 2020-06-28 21:57:00 157.5 cm [facility] [place] Body weight 2020-06-28 21:57:00 95.255 kg [facility] [place] BMI 2020-06-28 21:57:00 38.41 kg/m2 [facility] [place] Oxygen saturation in Arterial blood by Pulse oximetry 2020-06-28 21:57:00 96 /min [facility] [place] Systolic blood pressure 2020-06-28 21:57:00 151 mm[Hg] [facility] [place] Diastolic blood pressure 2020-06-28 21:57:00 88 mm[Hg] [facility] [place] Heart rate 2020-06-28 21:57:00 94 /min [facility] [place] Body temperature 2020-06-28 21:57:00 37.78 Latanya [facility] [place] Respiratory rate 2020-06-28 21:57:00 16 /min [facility] [place] Body height 2020-06-28 21:57:00 157.5 cm [facility] [place] Body weight 2020-06-28 21:57:00 95.255 kg [facility] [place] BMI 2020-06-28 21:57:00 38.41 kg/m2 [facility] [place] Oxygen saturation in Arterial blood by Pulse oximetry 2020-06-28 21:57:00 96 /min [facility] [place] Systolic blood pressure 2020-06-13 03:40:00 122 mm[Hg] [facility] [place] Diastolic blood pressure 2020-06-13 03:40:00 78 mm[Hg] [facility] [place] Heart rate 2020-06-13 03:40:00 90 /min [facility] [place] Respiratory rate 2020-06-13 03:40:00 18 /min [facility] [place] Oxygen saturation in Arterial blood by Pulse oximetry 2020-06-13 03:40:00 94 /min [facility] [place] Body temperature 2020-06-12 23:39:00 37.22 Latanya [facility] [place] Body weight 2020-06-12 23:39:00 97.07 kg [facility] [place] BMI 2020-06-12 23:39:00 39.14 kg/m2 [facility] [place] Systolic blood pressure 2020-06-13 03:40:00 122 mm[Hg] [facility] [place] Diastolic blood pressure 2020-06-13 03:40:00 78 mm[Hg] [facility] [place] Heart rate 2020-06-13 03:40:00 90 /min [facility] [place] Respiratory rate 2020-06-13 03:40:00 18 /min [facility] [place] Oxygen saturation in Arterial blood by Pulse oximetry 2020-06-13 03:40:00 94 /min [facility] [place] Body temperature 2020-06-12 23:39:00 37.22 Latanya [facility] [place] Body weight 2020-06-12 23:39:00 97.07 kg [facility] [place] BMI 2020-06-12 23:39:00 39.14 kg/m2 [facility] [place] Heart rate 2020-05-17 00:40:00 82 /min [facility] [place] Respiratory rate 2020-05-17 00:40:00 18 /min [facility] [place] Oxygen saturation in Arterial blood by Pulse oximetry 2020-05-17 00:40:00 95 /min [facility] [place] Systolic blood pressure 2020-05-17 00:00:00 137 mm[Hg] [facility] [place] Diastolic blood pressure 2020-05-17 00:00:00 93 mm[Hg] [facility] [place] Body temperature 2020-05-16 23:17:00 37.61 Latanya [facility] [place] Body weight 2020-05-16 23:17:00 97.07 kg [facility] [place] BMI 2020-05-16 23:17:00 39.14 kg/m2 [facility] [place] Heart rate 2020-05-17 00:40:00 82 /min [facility] [place] Respiratory rate 2020-05-17 00:40:00 18 /min [facility] [place] Oxygen saturation in Arterial blood by Pulse oximetry 2020-05-17 00:40:00 95 /min [facility] [place] Systolic blood pressure 2020-05-17 00:00:00 137 mm[Hg] [facility] [place] Diastolic blood pressure 2020-05-17 00:00:00 93 mm[Hg] [facility] [place] Body temperature 2020-05-16 23:17:00 37.61 Latanya [facility] [place] Body weight 2020-05-16 23:17:00 97.07 kg [facility] [place] BMI 2020-05-16 23:17:00 39.14 kg/m2 [facility] [place] Systolic blood pressure 2020-05-15 08:50:00 131 mm[Hg] [facility] [place] Diastolic blood pressure 2020-05-15 08:50:00 80 mm[Hg] [facility] [place] Heart rate 2020-05-15 08:50:00 70 /min [facility] [place] Respiratory rate 2020-05-15 08:50:00 18 /min [facility] [place] Oxygen saturation in Arterial blood by Pulse oximetry 2020-05-15 08:50:00 97 /min [facility] [place] Body temperature 2020-05-15 05:29:00 36.44 Latanya [facility] [place] Body height 2020-05-15 05:29:00 157.5 cm [facility] [place] Body weight 2020-05-15 05:29:00 97.07 kg Simultaneous filing. User may not have seen previous data. [facility] [place] BMI 2020-05-15 05:29:00 39.14 kg/m2 [facility] [place] Systolic blood pressure 2020-05-15 08:50:00 131 mm[Hg] [facility] [place] Diastolic blood pressure 2020-05-15 08:50:00 80 mm[Hg] [facility] [place] Heart rate 2020-05-15 08:50:00 70 /min [facility] [place] Respiratory rate 2020-05-15 08:50:00 18 /min [facility] [place] Oxygen saturation in Arterial blood by Pulse oximetry 2020-05-15 08:50:00 97 /min [facility] [place] Body temperature 2020-05-15 05:29:00 36.44 Latanya [facility] [place] Body height 2020-05-15 05:29:00 157.5 cm [facility] [place] Body weight 2020-05-15 05:29:00 97.07 kg Simultaneous filing. User may not have seen previous data. [facility] [place] BMI 2020-05-15 05:29:00 39.14 kg/m2 [facility] [place] Procedures Procedure Date / Time Performed Performing Clinician Source POCT TEST 2024-12-14 19:48:00 Kiran Rivero [facility] [place] URINALYSIS 2024-12-14 19:46:00 Kiran Rivero [facility] LIPASE 2024-12-14 19:08:00 Kiran Rivero [facility] COMP. METABOLIC PANEL ([id number]) 2024-12-14 19:08:00 Kiran Rivero [facility] [place] CBC WITH DIFF 2024-12-14 19:08:00 Kiran Rivero [facility] EKG (SCANNED DOCUMENTS) 2024-12-09 20:20:06 Doct or Unassigned, [place] [facility] [place] TROPONIN I 2024-12-09 01:33:00 [facility] COMP. METABOLIC PANEL ([id number]) 2024-12-09 01:33:00 Roberto Richards [facility] [place] CBC WITH DIFF 2024-12-09 01:33:00 Roberto Richards [facility] N-TERMINAL PRO-BNP 2024-12-09 01:33:00 Maurice Roberto [facility] [place] MAGNESIUM 2024-11-27 08:21:00 Alexx Kwok [facility] TROPONIN I 2024-11-27 08:21:00 Alexx Kwok [facility] BASIC METABOLIC PANEL (NA, K, CL, CO2, GLUCOSE, BUN, CREATININE, CA) 2024-11-27 08:21:00 Alexx Kwok [facility] [place] LIPID PANEL ([id number])(TOTAL CHOLESTEROL, TRIGLYCERIDES, HDL) 2024-11-27 08:21:00 Alexx Kwok [facility] [place] CBC WITH DIFF 2024-11-27 08:21:00 [facility]24-11-27 03:14:[address] [facility] LIPASE 2024-11-26 23:54:00 [facility]ia [facility] MAGNESIUM 2024-11-26 23:54:00 [facility]udia [facility] TROPONIN I 2024-11-26 23:54:00 [facility] COMP. METABOLIC PANEL ([id number]) 2024-11-26 23:54:00 Singer [facility] CBC WITH DIFF 2024-11-26 23:54:00 Singer [facility] N-TERMINAL PRO-BNP 2024-11-26 23:54:00 Singer [facility] XR CHEST 1 VW 2024-11-26 23:28:51 Singer [facility] HB ECG ROUTINE & RHYTHM STRIP 2024-11-26 22:53:55 Singer [facility] URINALYSIS 2024-11-15 01:45:00 Bushra Rios [facility] POCT TEST 2024-11-15 01:45:00 Rosario Rios ra [facility] [place] CT ABDOMEN PELVIS W CONTRAST 2024-11-11 04:01:35 Bob Garcia [facility] [place] POCT TEST 2024-11-11 02:26:00 Bob Garcia [facility] [place] LIPASE 2024-11-11 02:23:00 Bob Garcia [facility] COMP. METABOLIC PANEL ([id number]) 2024-11-11 02:23:00 Bob Garcia [facility] [place] CBC WITH DIFF 2024-11-11 02:23:00 Bob Garcia [facility] URINALYSIS 2024-11-11 02:23:00 Bob Garcia [facility] MAGNESIUM 2024-11-04 09:46:00 Quincy'Corinna Gee [facility] BASIC METABOLIC PANEL (NA, K, CL, CO2, GLUCOSE, BUN, CREATININE, CA) 2024-11-04 09:46:00 Jean Carlos Cowan [facility] CBC WITH DIFF 2024-11-04 09:46:00 Corinna Cowan [facility] MAGNESIUM 2024-11-04 09:46:00 Corinna Cowan [facility] BASIC METABOLIC PANEL (NA, K, CL, CO2, GLUCOSE, BUN, CREATININE, CA) 2024-11-04 09:46:00 Jean Carlos Cowan [facility] [place] CBC WITH DIFF 2024-11-04 09:46:00 Corinna Cowan [facility] [place] CATH PROCEDURE LOG 2024-11-03 20:05:03 SullyClara rockwelllong cannon [facility] [place] CATH PROCEDURE LOG 2024-11-03 20:05:03 SullyClaralong U r [facility] [place] CARDIAC CATHETERIZATION 2024-11-03 19:40:00 Sully, Rika uja Ur [facility] [place] CARDIAC CATHETERIZATION 2024-11-03 19:40:00 Sully, Rkia uja Ur [facility] [place] CARDIAC CATHETERIZATION 2024-11-03 19:40:00 Sully Rika ulong Ur [facility] [place] CARDIAC CATHETERIZATION 2024-11-03 19:40:00 Sully, Rika bruno Ur [facility] [place] CARDIAC CATHETERIZATION 2024-11-03 19:40:00 Sully, Rika bruno Ur [facility] [place] CARDIAC CATHETERIZATION 2024-11-03 19:40:00 Sully Rika bruno Ur [facility] [place] ACTIVATED PARTIAL THRMPLAS MARCIO 2024-11-03 14:13:00 Kylah [facility] ACTIVATED PARTIAL THRMPLAS MARCIO 2024-11-03 14:13:00 [facility]-11-03 11:08:00 Corinna Cowan [facility] [place] BASIC METABOLIC PANEL (NA, K, CL, CO2, GLUCOSE, BUN, CREATININE, CA) 2024-11-03 11:08:00 Jean Carlos Cowan [facility] [place] MAGNESIUM 2024-11-03 11:08:00 Corinna Cowan [facility] [place] BASIC METABOLIC PANEL (NA, K, CL, CO2, GLUCOSE, BUN, CREATININE, CA) 2024-11-03 11:08:00 Jean Carlos Cowan [facility] [place] CBC WITH DIFF 2024-11-03 09:45:00 Corinna Cowan [facility] [place] CBC WITH DIFF 2024-11-03 09:45:00 Corinna Cowan [facility] [place] ACTIVATED PARTIAL THRMPLAS MARCIO 2024-11-03 07:43:00 Kylah, [facility] ACTIVATED PARTIAL THRMPLAS MARCIO 2024-11-03 07:43:00 Kylah, [facility] ACTIVATED PARTIAL THRMPLAS MARCIO 2024-11-03 00:54:00 Ovfrankie, [facility] ACTIVATED PARTIAL THRMPLAS MARCIO 2024-11-03 00:54:00 Kylah [facility] HB ECG ROUTINE & RHYTHM STRIP 2024-11-02 21:49:21 Rosario Virk [facility] ACTIVATED PARTIAL THRMPLAS MARCIO 2024-11-02 14:41:00 Kylah [facility] ACTIVATED PARTIAL THRMPLAS MARCIO 2024-11-02 14:41:00 Kylah [facility] MAGNESIUM 2024-11-02 08:35:00 Hussain [facility] BASIC METABOLIC PANEL (NA, K, CL, CO2, GLUCOSE, BUN, CREATININE, CA) 2024-11-02 08:35:00 Hussain [facility] CBC WITH DIFF 2024-11-02 08:35:00 Hussain [facility] ACTIVATED PARTIAL THRMPLAS MARCIO 2024-11-02 08:35:00 [facility] 2024-11-02 08:35:00 Hussain [facility] BASIC METABOLIC PANEL (NA, K, CL, CO2, GLUCOSE, BUN, CREATININE, CA) 2024-11-02 08:35:00 Hussain [facility] CBC WITH DIFF 2024-11-02 08:35:00 Hussain [facility] ACTIVATED PARTIAL THRMPLAS MARCIO 2024-11-02 08:35:00 Kylah [facility] MRSA / MSSA SCREEN BY PCRDUKE 2024-11-02 02:11:00 Hussain [facility] MRSA / MSSA SCREEN BY PCR, [facility] 2024-11-02 02:11:00 Hussain [facility] PHOSPHORUS 2024-11-02 02:08:00 Hussain [facility] TROPONIN I 2024-11-02 02:08:00 Brantt [facility] ACTIVATED PARTIAL THRMPLAS MARCIO 2024-11-02 02:08:00 [facility] 2024-11-02 02:08:00 Brantt [facility] TROPONIN I 2024-11-02 02:08:00 Brantt [facility] ACTIVATED PARTIAL THRMPLAS MARCIO 2024-11-02 02:08:00 [facility] RHYTHM STRIP 2024-11-01 23:29:25 Hussain [facility] HB ECG ROUTINE & RHYTHM STRIP 2024-11-01 23:29:25 Hussain [facility] URINALYSIS 2024-11-01 19:35:00 Susie Brewer [facility] URINE CULTURE 2024-11-01 19:35:00 Susie Brewer [facility] URINALYSIS 2024-11-01 19:35:00 Susie Brewer U [facility] URINE CULTURE 2024-11-01 19:35:00 Susie Brewer [facility] [place] PROTHROMBIN TIME / INR 2024-11-01 19:34:00 Parmjit Montero [facility] [place] ACTIVATED PARTIAL THRMPLAS MARCIO 2024-11-01 19:34:00 [facility] / INR 2024-11-01 19:34:00 Parmjit Montero [facility] ACTIVATED PARTIAL THRMPLAS MARCIO 2024-11-01 19:34:00 Kylah [facility] TRANSTHORACIC ECHO (TTE) COMPLETE W/ CONTRAST 2024-11-01 13:44:00 Viviana [facility] TRANSTHORACIC ECHO (TTE) COMPLETE W/ CONTRAST 2024-11-01 13:44:00 Viviana [facility] TROPONIN I 2024-11-01 13:26:00 Viviana [facility] THYROID STIMULATING HORMONE 2024-11-01 13:26:00 Farnaz Nixon [facility] [place] LIPID PANEL ([id number])(TOTAL CHOLESTEROL, TRIGLYCERIDES, HDL) 2024-11-01 13:26:00 Natasha Hernandes [facility] [place] N-TERMINAL PRO-BNP 2024-11-01 13:26:00 Natasha Hernandes [facility] [place] TROPONIN I 2024-11-01 13:26:00 Viviana [facility] THYROID STIMULATING HORMONE 2024-11-01 13:26:00 Farnaz Nixon [facility] [place] LIPID PANEL ([id number])(TOTAL CHOLESTEROL, TRIGLYCERIDES, HDL) 2024-11-01 13:26:00 Natasha Hernandes [facility] [place] N-TERMINAL PRO-BNP 2024-11-01 13:26:00 Natasha Hernandes [facility] INFLUENZA A/B RSV COVID NAAT 2024-11-01 09:35:00 Viviana [facility] LAB ONLY COVID INTERPRETATION 2024-11-01 09:35:00 Viviana [facility] INFLUENZA A/B RSV COVID NAAT 2024-11-01 09:35:00 Viviana [facility] LAB ONLY COVID INTERPRETATION 2024-11-01 09:35:00 Viviana [facility] TROPONIN I 2024-11-01 07:17:00 Viviana [facility] BASIC METABOLIC PANEL (NA, K, CL, CO2, GLUCOSE, BUN, CREATININE, CA) 2024-11-01 07:17:00 Viviana [facility] CBC WITH DIFF 2024-11-01 07:17:00 Viviana [facility] GLYCOSYLATED HEMOGLOBIN (A1C) 2024-11-01 07:17:00 Natasha Hernandes [facility] PROCALCITONIN 2024-11-01 07:17:00 Viviana [facility] TROPONIN I 2024-11-01 07:17:00 Viviana [facility] BASIC METABOLIC PANEL (NA, K, CL, CO2, GLUCOSE, BUN, CREATININE, CA) 2024-11-01 07:17:00 Viviana [facility] CBC WITH DIFF 2024-11-01 07:17:00 Viviana [facility] GLYCOSYLATED HEMOGLOBIN (A1C) 2024-11-01 07:17:00 Natasha Hernandes [facility] PROCALCITONIN 2024-11-01 07:17:00 Viviana [facility] XR CHEST 1 VW 2024-11-01 03:19:58 Bob Garcia [facility] XR CHEST 1 VW 2024-11-01 03:19:58 Bob Garcia [facility] LIPASE 2024-11-01 02:53:00 Bob Garcia [facility] TROPONIN I 2024-11-01 02:53:00 Bob Garcia [facility] COMP. METABOLIC PANEL ([id number]) 2024-11-01 02:53:00 Bob Garcia [facility] CBC WITH DIFF 2024-11-01 02:53:00 Bob Garcia [facility] LIPASE 2024-11-01 02:53:00 Bob Garcia [facility] TROPONIN I 2024-11-01 02:53:00 Bob Garcia [facility] COMP. METABOLIC PANEL ([id number]) 2024-11-01 02:53:00 Bob Garcia [facility] CBC WITH DIFF 2024-11-01 02:53:00 Bob Garcia [facility] HB ECG ROUTINE & RHYTHM STRIP 2024-11-01 02:32:05 Bob Garcia [facility] HB ECG ROUTINE & RHYTHM STRIP 2024-11-01 02:32:05 Bob Garcia [facility] CT ABDOMEN PELVIS W CONTRAST 2024-10-24 03:31:17 Juanjose Barker [facility] LIPASE 2024-10-24 01:34:[address] [facility] COMP. METABOLIC PANEL ([id number]) 2024-10-24 01:34:00 Juanjose Barker [facility] CBC WITH DIFF 2024-10-24 01:34:[address] [facility] URINALYSIS 2024-10-24 01:34:[address] [facility] TROPONIN I 2024-10-13 06:39:00 Bob Garcia [facility] LIPASE 2024-10-13 04:20:00 [facility] 2024-10-13 04:20:00 Bob Garcia [facility] COMP. METABOLIC PANEL ([id number]) 2024-10-13 04:20:00 Bob Garcia [facility] CBC WITH DIFF 2024-10-13 04:20:00 Bob Garcia [facility] N-TERMINAL PRO-BNP 2024-10-13 04:20:00 Bob Garcia [facility] POCT TEST 2024-10-13 03:46:00 Bob Garcia [facility] URINALYSIS 2024-10-13 03:39:00 Bob Garcia [facility] URINE DRUG (IMMUNOASSAY) - COMPREHENSIVE DRUG SCREEN 2024-07-19 06:11:00 Saleem Edward [facility] URINALYSIS 2024-07-19 06:11:00 [facility] CHEST PULMONARY ANGIOGRAM 2024-07-19 05:46:40 Saleem Edward [facility] MAGNESIUM 2024-07-19 05:08:00 Saleem [facility] TROPONIN I 2024-07-19 05:08:00 [facility] COMP. METABOLIC PANEL ([id number]) 2024-07-19 05:08:00 Saleem Edward [facility] CBC WITH DIFF 2024-07-19 05:08:00 Saleem Edward Eleni [facility] INFLUENZA A/B RSV COVID NAAT 2024-07-19 05:08:00 Saleem Edward Eleni [facility] N-TERMINAL PRO-BNP 2024-07-19 05:08:00 Saleem Edward Eleni [facility] CT ABDOMEN PELVIS W CONTRAST 2024-07-04 05:47:25 Sandy Garcia [facility] POCT TEST 2024-07-04 05:33:00 Ross Garcia [facility] LIPASE 2024-07-04 03:23:00 [facility] COMP. METABOLIC PANEL ([id number]) 2024-07-04 03:23[facility]00 [facility] 2024-07-04 03:23:00 Sandy Garcia [facility] URINALYSIS 2024-07-04 03:23:00 [facility] ABDOMEN PELVIS W CONTRAST 2024-06-15 05:33:59 [facility] 2024-06-15 04:18:00 Sandy [facility] LIP[facility] 2024-06-15 04:14:00 [facility] TEST, SERUM 2024-06-15 04:14:00 Laney Garcia [facility] TROPONIN I 2024-06-15 04:14:00 [facility] COMP. METABOLIC PANEL ([id number]) 2024-06-15 04:14:00 [facility] WITH DIFF 2024-06-15 04:14:00 Sandy Garcia [facility] TROPONIN I 2024-06-07 07:19:00 Bob Garcia [facility] XR CHEST 1 VW 2024-06-07 05:38:37 Bob Garcia [facility] POCT TEST 2024-06-07 05:19:00 Bob Garcia [facility] URINE DRUG (IMMUNOASSAY) - COMPREHENSIVE DRUG SCREEN 2024-06-07 05:18:00 Bob Garcia [facility] TROPONIN I 2024-06-07 04:10:00 Bob Garcia [facility] COMP. METABOLIC PANEL ([id number]) 2024-06-07 04:10:00 Bob Garcia [facility] CBC WITH DIFF 2024-06-07 04:10:00 Bob Garcia [facility] CT HEAD WO CONTRAST 2024-05-19 18:22:43 Rafal Wright [facility] XR ELBOW <3 VW RIGHT 2024-05-18 02:32:12 Tammy Barrera [facility] XR FOREARM 2 VW RIGHT 2024-05-18 02:32:12 Tammy Moralez [facility] XR HAND 3+ VW RIGHT 2024-05-18 02:32:12 Tammy Casanova [facility] CT CERVICAL SPINE WO CONTRAST 2024-05-18 02:11:45 Tammy Roy [facility] CT MAXILLOFACIAL/MANDIBLE WO CONTRAST 2024-05-18 02:11:45 Tammy Roy [facility] POCT TEST 2024-05-08 02:00:00 Saleem Edward [facility] LIPASE 2024-05-08 00:31:00 Saleem [facility] MAGNESIUM 2024-05-08 00:31:00 Saleem [facility] TROPONIN I 2024-05-08 00:31:00 Wanger, K Eleni [facility] COMP. METABOLIC PANEL ([id number]) 2024-05-08 00:31:00 Saleem Edward [facility] CBC WITH DIFF 2024-05-08 00:31:00 Saleem Edward [facility] URINALYSIS 2024-05-08 00:31:00 Saleem Edward [facility] CT ABDOMEN PELVIS WO CONTRAST 2024-04-08 23:45:15 Jacque Rojo [facility] POCT TEST 2024-04-08 23:01:00 Judy Rojo [facility] LIPASE 2024-04-08 22:47:00 Florentino [facility] COMP. METABOLIC PANEL ([id number]) 2024-04-08 22:47:00 Jacque Rojo [facility] CBC WITH DIFF 2024-04-08 22:47:00 Sophie Rojoherine [facility] URINALYSIS 2024-04-08 22:47:[address] [facility] CT ABDOMEN PELVIS W CONTRAST 2023-10-11 04:08:24 Bob Garcia [facility] POCT TEST 2023-10-11 03:40:00 Bob Garcia [facility] LIPASE 2023-10-11 03:25:00 Bob Garcia [facility] COMP. METABOLIC PANEL ([id number]) 2023-10-11 03:25:00 Bob Garcia [facility] CBC WITH DIFF 2023-10-11 03:25:00 [facility] 2023-10-11 03:25:00 Bob Garcia [facility] XR KUB 2023-07-02 03:34:07 [facility] POCT TEST 2023-07-02 02:30:00 Alberta Richards [facility] LIPASE 2023-07-02 02:05:00 [facility] COMP. METABOLIC PANEL ([id number]) 2023-07-02 02:05:00 Roberto Richards [facility] CBC WITH DIFF 2023-07-02 02:05:00 Roberto Richards [facility] URINALYSIS 2023-07-02 02:05:00 [facility] URINE DRUG (IMMUNOASSAY) - COMPREHENSIVE DRUG SCREEN W/O REFLEX 2023-07-02 02:05:00 Roberto Richards [facility] CONSENT/REFUSAL FOR DIAGNOSIS AND TREATMENT 2023-07-02 01:43:05 Doctor Unassigned, [place] [facility] LIPASE 2023-05-09 22:47:00 [facility]ud[facility] COMP. METABOLIC PANEL ([id number]) 2023-05-09 22:47:00 Klaudia Narvaez [facility] CBC WITH DIFF 2023-05-09 22:47[facility]00 [facility]IS AND TREATMENT 2023-05-09 22:32:48 Doctor Unassigned, [place] [facility] CT ABDOMEN PELVIS W CONTRAST 2023-04-30 23:47:56 Klaudia Narvaez [facility] COMP. METABOLIC PANEL ([id number]) 2023-04-30 23:08:00 Klaudia Narvaez [facility] CBC WITH DIFF 2023-04-30 23:08:00 Klaudia Narvaez [facility] POCT TEST 2023-04-30 22:59:00 Jaquan Narvaez [facility] URINALYSIS 2023-04-30 22:57:00 [facility]ud[facility] CONSENT/REFUSAL FOR DIAGNOSIS AND TREATMENT 2023-04-30 22:14:38 Doctor Unassigned, [place] [facility] XR ABDOMEN ACUTE SERIES 2023-04-17 02:13:44 Do minal Richards [facility] POCT TEST 2023-04-17 02:11:00 Alberta Richards [facility] LIPASE 2023-04-17 02:04:00 [facility] TROPONIN I 2023-04-17 02:04:00 [facility] COMP. METABOLIC PANEL ([id number]) 2023-04-17 02:04:00 Roberto Richards [facility] CBC WITH DIFF 2023-04-17 02:04:00 Roberto Richards [facility] PROTHROMBIN TIME / INR 2023-04-17 02:04:00 Jalen Richards [facility] ACTIVATED PARTIAL THRMPLAS MARCIO 2023-04-17 02:04:00 Roberto Richards [facility] URINALYSIS 2023-04-17 02:04:00 [facility] N-TERMINAL PRO-BNP 2023-04-17 02:04:00 Roberto Richards [facility] URINE DRUG (IMMUNOASSAY) - COMPREHENSIVE DRUG SCREEN W/O REFLEX 2023-04-17 02:04:00 Roberto Richards [facility] CONSENT/REFUSAL FOR DIAGNOSIS AND TREATMENT 2023-04-17 01:22:36 Doctor Unassigned, [place] [facility] URINALYSIS 2023-04-09 01:02:00 Saleem [facility] LIPASE 2023-04-08 23:15:00 [facility] MAGNESIUM 2023-04-08 23:15:00 [facility] TROPONIN I 2023-04-08 23:15:00 Saleem [facility] COMP. METABOLIC PANEL ([id number]) 2023-04-08 23:15:00 Saleem Edward [facility] CBC WITH DIFF 2023-04-08 23:15:00 Saleem Edward [facility] CONSENT/REFUSAL FOR DIAGNOSIS AND TREATMENT 2023-04-08 21:57:42 Doctor Unassigned, [place] [facility] CT ABDOMEN PELVIS W CONTRAST 2023-03-10 03:38:58 Roberto Richards [facility] POCT TEST 2023-03-10 02:51:00 Alberta Richards [facility] URINALYSIS 2023-03-10 01:49:00 [facility] LIP[facility] 2023-03-10 01:46:[address] [facility] COMP. METABOLIC PANEL ([id number]) 2023-03-10 01:46:00 Roberto Richards [facility] CBC WITH DIFF 2023-03-10 01:46:00 Roberto Richards [facility] CONSENT/REFUSAL FOR DIAGNOSIS AND TREATMENT 2023-03-10 01:36:24 Doctor Unassigned, [place] [facility] CONSENT/REFUSAL FOR DIAGNOSIS AND TREATMENT 2023-03-10 01:14:40 Doctor Unassigned, [place] [facility] CT ABDOMEN PELVIS W CONTRAST 2023-03-02 05:16:35 Bob Garcia [facility] POCT TEST 2023-03-02 03:26:00 Bob Garcia [facility] LIPASE 2023-03-02 03:23:00 [facility] METABOLIC PANEL ([id number]) 2023-03-02 03:23:00 Bob Garcia [facility] CBC WITH DIFF 2023-03-02 03:23:00 Bob Garcia [facility] URINALYSIS 2023-03-02 03:23:00 Bob Garcia [facility] CONSENT/REFUSAL FOR DIAGNOSIS AND TREATMENT 2023-03-02 00:22:44 Doctor Unassigned, [place] [facility] CONSENT/REFUSAL FOR DIAGNOSIS AND TREATMENT 2023-02-18 03:44:46 Doctor Unassigned, [place] [facility] LIPASE 2023-02-17 09:28:[address] [facility] HEPATIC FUNCTION PANEL ([id number]) (ALB,T.PRO,BILI T,BU/BC,ALT,AST,ALK PHOS) 2023-02-17 09:28:00 [facility]OLIC PANEL (NA, K, CL, CO2, GLUCOSE, BUN, CREATININE, CA) 2023-02-17 09:28:00 [place]FF 2023-02-17 09:28:00 [facility] LIP[facility] 2023-02-16 18:24:00 Zay Montero [facility] HEPATIC FUNCTION PANEL ([id number]) (ALB,T.PRO,BILI T,BU/BC,ALT,AST,ALK PHOS) 2023-02-16 18:24:00 [facility] (NA, K, CL, CO2, GLUCOSE, BUN, CREATININE, CA) 2023-02-16 18:24:00 [facility] DIFF 2023-02-16 18:23:00 [facility] ABDOMEN PELVIS W CONTRAST 2023-02-15 23:29:00 Leeanne Wise [facility] LIPASE 2023-02-15 21:45:00 Leeanne Wise [facility] COMP. METABOLIC PANEL ([id number]) 2023-02-15 21:45:00 Leeanne Wise [facility] CBC WITH DIFF 2023-02-15 21:45:00 Leeanne Wise [facility] D-DIMER 2023-02-15 19:55:00 Leeanne Wise [facility] URINALYSIS 2023-02-15 19:50:00 Leeanne Wise [facility] RAPID INFLUENZA A/B 2023-02-15 19:50:00 Leeanne Wise [facility] COVID-19 (ID NOW RAPID TESTING) 2023-02-15 19:50:00 Leeanne Wise [facility] XR CHEST 1 VW 2023-02-15 19:38:00 Leeanne Wise [facility] ASSIGNMENT OF BENEFITS 2023-02-15 19:26:58 Docto r Unassigned, [place] [facility] HB ECG ROUTINE & RHYTHM STRIP 2023-02-15 19:07:40 Leeanne Wise [facility] NOTICE OF PRIVACY PRACTICES 2023-02-15 18:24:07 Doctor Unassigned, [place] [facility] CONSENT/REFUSAL FOR DIAGNOSIS AND TREATMENT 2023-02-15 18:23:04 Doctor Unassigned, [place] [facility] TROPONIN I 2022-01-10 00:32:00 Melida [facility] TROPONIN I 2022-01-09 22:17:00 Melida [facility] BASIC METABOLIC PANEL (NA, K, CL, CO2, GLUCOSE, BUN, CREATININE, CA) 2022-01-09 22:17:00 Melida Longoria [facility] CBC WITH DIFF 2022-01-09 22:17:00 [facility] N-TERMINAL PRO-BNP 2022-01-09 22:17:00 Melida Longoria [facility] XR CHEST 1 VW 2022-01-09 22:11:00 Melida [facility] CONSENT/REFUSAL FOR DIAGNOSIS AND TREATMENT 2022-01-09 21:34:15 Doctor Unassigned, [place] [facility] TROPONIN I 2021-12-14 05:39:00 [facility] CHEST 1 VW 2021-12-14 04:39:00 Wil Mcqueen [facility] POCT TEST 2021-12-14 04:20:00 Wil Mcqueen [facility] URINALYSIS 2021-12-14 03:57:00 [facility] LIPASE 2021-12-14 03:43:00 [facility] TROPONIN I 2021-12-14 03:43:00 [facility] FREE T4 2021-12-14 03:43:00 [facility] THYROID STIMULATING HORMONE 2021-12-14 03:43:00 Wil Mcqueen [facility] COMP. METABOLIC PANEL ([id number]) 2021-12-14 03:43:00 Wil Mcqueen [facility] CBC WITH DIFF 2021-12-14 03:43:00 [facility] 2021-12-14 03:43:00 [facility] CONSENT/REFUSAL FOR DIAGNOSIS AND TREATMENT 2021-12-14 02:58:21 Doctor Unassigned, [place] [facility] TROPONIN I 2021-11-12 03:04:00 Apple Wang U [facility] POCT TEST 2021-11-12 02:56:00 Tra Wang [facility] URINE DRUG (IMMUNOASSAY) - COMPREHENSIVE DRUG SCREEN 2021-11-12 02:30:00 Apple Wang [facility] URINALYSIS 2021-11-12 02:30:00 Apple Wang U [facility] XR CHEST 2 VW 2021-11-12 01:45:03 Apple Wang [facility] LIPASE 2021-11-12 01:34:00 Apple Wang U [facility] TROPONIN I 2021-11-12 01:34:00 Apple Wang U [facility] COMP. METABOLIC PANEL ([id number]) 2021-11-12 01:34:00 Apple Wang [facility] CBC WITH DIFF 2021-11-12 01:34:00 Apple Wang [facility] N-TERMINAL PRO-BNP 2021-11-12 01:34:00 Mckinley Wang [facility] CONSENT/REFUSAL FOR DIAGNOSIS AND TREATMENT 2021-11-12 00:36:34 Doctor Unassigned, [place] [facility] CT ABDOMEN PELVIS W CONTRAST 2021-09-12 02:49:43 Apple Wang [facility] COVID-19 (ID NOW RAPID TESTING) 2021-09-12 02:23:00 Apple Wang [facility] POCT TEST 2021-09-12 02:21:00 Tra Wang [facility] POCT TEST 2021-09-12 01:45:00 Bob Garcia [facility] URINALYSIS 2021-09-12 01:43:00 Bob Garcia [facility] LIPASE 2021-09-12 01:40:00 Bob Garcia [facility] COMP. METABOLIC PANEL ([id number]) 2021-09-12 01:40:00 Bob Garcia [facility] CBC WITH DIFF 2021-09-12 01:40:00 Bob Garcia [facility] CONSENT/REFUSAL FOR DIAGNOSIS AND TREATMENT 2021-09-12 01:26:55 Doctor Unassigned, [place] [facility] XR LUMBAR SPINE 1 VW 2021-08-15 07:03:00 Angeles Garcia i [facility] URINALYSIS 2021-08-15 06:35:00 Bob Garcia [facility] POCT TEST 2021-08-15 06:35:00 Bob Garcia [facility] NOTICE OF PRIVACY PRACTICES 2021-08-15 06:01:56 Doctor Unassigned, [place] [facility] CONSENT/REFUSAL FOR DIAGNOSIS AND TREATMENT 2021-08-15 05:25:54 Doctor Unassigned, [place] [facility] TROPONIN I 2021-05-28 07:50:00 Cem Choi [facility] D-DIMER 2021-05-28 07:05:00 Cem Choi [facility] XR CHEST 2 VW 2021-05-28 05:46:[facility] 2021-05-28 05:32:00 Cem Choi [facility] LIPASE 2021-05-28 05:29:00 Cem Choi [facility] TROPONIN I 2021-05-28 05:29:00 Cem Choi [facility] COMP. METABOLIC PANEL ([id number]) 2021-05-28 05:29:00 Cem Choi [facility] CBC WITH DIFF 2021-05-28 05:29:00 [facility] N-[facility]MINAL PRO-BNP 2021-05-28 05:29:00 Cem Choi [facility] COVID-19 (ID NOW RAPID TESTING) 2021-05-28 05:29:00 Cem Choi [facility] TROPONIN I 2021-04-08 10:01:00 Apple Page [facility] BASIC METABOLIC PANEL (NA, K, CL, CO2, GLUCOSE, BUN, CREATININE, CA) 2021-04-08 10:01:00 Apple Page [facility] CBC WITH DIFF 2021-04-08 10:01:00 Apple Page [facility] TROPONIN I 2021-04-08 04:12:00 Apple Page [facility] XR CHEST 1 VW 2021-04-07 22:33:33 Roberto Richards [facility] LIPASE 2021-04-07 21:52:[address] [facility] MAGNESIUM 2021-04-07 21:52:00 Apple Page [facility] TROPONIN I 2021-04-07 21:52:[address] [facility] THYROID STIMULATING HORMONE 2021-04-07 21:52:00 Apple Page Rocio [facility] COMP. METABOLIC PANEL ([id number]) 2021-04-07 21:52:00 Roberto Richards [facility] LIPID PANEL ([id number])(TOTAL CHOLESTEROL, TRIGLYCERIDES, HDL) 2021-04-07 21:52:00 Apple Page Rocio [facility] CBC WITH DIFF 2021-04-07 21:52:00 Roberto Richards [facility] GLYCOSYLATED HEMOGLOBIN (A1C) 2021-04-07 21:52:00 Apple Page [facility] PROTHROMBIN TIME / INR 2021-04-07 21:52:00 Jalen Richards [facility] ACTIVATED PARTIAL THRMPLAS MARCIO 2021-04-07 21:52:00 Roberto Richards [facility] N-TERMINAL PRO-BNP 2021-04-07 21:52:00 Roberto Richards [facility] COVID-19 (ID NOW RAPID TESTING) 2021-04-07 21:51:00 Roberto Richards [facility] HB ECG ROUTINE & RHYTHM STRIP 2021-04-07 21:38:41 Roberto Richards [facility] CONSENT/REFUSAL FOR DIAGNOSIS AND TREATMENT 2021-04-07 21:17:47 Doctor Unassigned, [place] [facility] CT ABDOMEN PELVIS WO CONTRAST 2021-01-12 08:10:17 Klaudia Narvaez [facility] POCT TEST 2021-01-12 08:02:00 Jaquan Narvaez [facility] URINALYSIS 2021-01-12 07:58:00 Singer [facility] COMP. METABOLIC PANEL ([id number]) 2021-01-12 07:56:00 Singer [facility] CBC WITH DIFF 2021-01-12 07:56:00 Singer [facility] TROPONIN I 2020-12-11 00:47:00 Mo [facility] XR CHEST 1 VW 2020-12-10 22:40:57 Bal Hassan [facility] POCT TEST 2020-12-10 22:32:00 Suzanna Hassan [facility] URINALYSIS 2020-12-10 22:30[facility]-12-10 22:24:00 Mo [facility] TROPONIN I 2020-12-10 22:24:00 Mo [facility] HEPATIC FUNCTION PANEL ([id number]) (ALB,T.PRO,BILI T,BU/BC,ALT,AST,ALK PHOS) 2020-12-10 22:24:00 Mo [facility] BASIC METABOLIC PANEL (NA, K, CL, CO2, GLUCOSE, BUN, CREATININE, CA) 2020-12-10 22:24:00 Bal Hassan [facility] CBC WITH DIFF 2020-12-10 22:24:00 Bal Hassan [facility] D-DIMER 2020-12-10 22:24:00 Bal Hassan [facility] N-TERMINAL PRO-BNP 2020-12-10 22:24:00 Mirtha Hassan [facility] POCT TEST 2020-12-04 21:18[facility]00 [facility] 2020-12-04 21:17:00 Hernan [facility] LIPASE 2020-12-04 20:20:00 Hernan [facility] TROPONIN I 2020-12-04 20:20:00 Hernan [facility] HEPATIC FUNCTION PANEL ([id number]) (ALB,T.PRO,BILI T,BU/BC,ALT,AST,ALK PHOS) 2020-12-04 20:20:00 Hernan [facility] BASIC METABOLIC PANEL (NA, K, CL, CO2, GLUCOSE, BUN, CREATININE, CA) 2020-12-04 20:20:00 Hernan [facility] CBC WITH DIFF 2020-12-04 20:20:[address] [facility] XR CHEST 1 VW 2020-12-04 20:16:54 Hernan [facility] XR ANKLE 3+ VW LEFT 2020-12-04 20:16:54 Hernan [facility] CONSENT/REFUSAL FOR DIAGNOSIS AND TREATMENT 2020-12-04 19:43:45 Doctor Unassigned, [place] [facility] XR CHEST 1 VW 2020-11-04 02:24:02 Bob Garcia [facility] URINE DRUG (IMMUNOASSAY) - 4 ER PANEL 2020-11-04 02:19:00 Bob Garcia [facility] URINALYSIS 2020-11-04 02:19:00 Bob Garcia [facility] LIPASE 2020-11-04 02:16:00 Bob Garcia [facility] TROPONIN I 2020-11-04 02:16:00 Bob Garcia [facility] COMP. METABOLIC PANEL (66344) 2020-11-04 02:16:00 Bob Garcia [facility] CBC WITH DIFF 2020-11-04 02:16:00 Bob Garcia [facility] PROTHROMBIN TIME / INR 2020-11-04 02:16:00 Lucia Garcia [facility] ACTIVATED PARTIAL THRMPLAS MARCIO 2020-11-04 02:16:00 Bob Garcia [facility] CONSENT/REFUSAL FOR DIAGNOSIS AND TREATMENT 2020-11-04 01:11:16 Doctor Unassigned, [place] [facility] XR CHEST 1 VW 2020-09-17 17:32:21 Leeanne Wise [facility] RAPID STREP SCREEN FOR GROUP A 2020-09-17 16:31:00 Leeanne Wise [facility] COVID-19 (ID NOW RAPID TESTING) 2020-09-17 16:31:00 Leeanne Wise [facility] NOTICE OF PRIVACY PRACTICES 2020-09-17 15:47:38 Doctor Unassigned, [place] [facility] CONSENT/REFUSAL FOR DIAGNOSIS AND TREATMENT 2020-09-17 15:47:07 Doctor Unassigned, [place] [facility] XR FOREARM 2 VW LEFT 2020-09-07 06:59:53 Saleem Edward [facility] XR HAND 3+ VW LEFT 2020-09-07 06:59:53 Saleem Edward [facility] NOTICE OF PRIVACY PRACTICES 2020-09-07 06:06:09 Doctor Unassigned, [place] [facility] CONSENT/REFUSAL FOR DIAGNOSIS AND TREATMENT 2020-09-07 06:03:10 Doctor Unassigned, [place] [facility] CT ABDOMEN PELVIS W CONTRAST 2020-08-28 09:16:08 Bob Garcia [facility] POCT TEST 2020-08-28 08:45:00 Bob Garcia [facility] URINALYSIS 2020-08-28 08:43:00 Bob Garcia [facility] LIPASE 2020-08-28 08:09:00 [facility]. METABOLIC PANEL (54569) 2020-08-28 08:09:00 Bob Garcia [facility] CBC WITH DIFF 2020-08-28 08:09:00 [facility] VW 2020-08-14 18:10:03 [facility] LIPASE 2020-08-14 17:58:[address] [facility] TROPONIN I 2020-08-14 17:58:[address] [facility] COMP. METABOLIC PANEL (40817) 2020-08-14 17:58:00 Best [facility] CBC WITH DIFF 2020-08-14 17:58:00 [facility] URINALYSIS 2020-08-14 17:58:[address] [facility] LACTIC ACID WHOLE BLOOD 2020-08-14 17:58:00 Sophie Taylor [facility] ADC / LCC - DRUG SCREEN TRIAGE 2020-08-14 17:58:00 Best [facility] CONSENT/REFUSAL FOR DIAGNOSIS AND TREATMENT 2020-08-14 17:33:16 Doctor Unassigned, [place] [facility] CT ABDOMEN PELVIS WO CONTRAST 2020-08-11 04:11:07 [facility] XR CHEST 1 VW 2020-08-11 03:56:48 [facility] POCT TEST 2020-08-11 03:10:00 Best Taylor [facility] BLOOD CULTURE SCREEN 2020-08-11 02:01:00 Best Taylor [facility] BLOOD CULTURE SCREEN 2020-08-11 01:45:00 Best Taylor [facility] LIPASE 2020-08-11 01:45:00 [facility] TROPONIN I 2020-08-11 01:45:00 [facility] HEPATIC FUNCTION PANEL (30232) (ALB,T.PRO,BILI T,BU/BC,ALT,AST,ALK PHOS) 2020-08-11 01:45:00 Best [facility] BASIC METABOLIC PANEL (NA, K, CL, CO2, GLUCOSE, BUN, CREATININE, CA) 2020-08-11 01:45:00 [facility] CBC WITH DIFF 2020-08-11 01:45:00 [facility] URINALYSIS 2020-08-11 01:45:00 [facility] LACTIC ACID WHOLE BLOOD 2020-08-11 01:45:00 Sophie Taylor [facility] COVID-19 (ID NOW RAPID TESTING) 2020-08-11 01:45:00 Best [facility] CONSENT/REFUSAL FOR DIAGNOSIS AND TREATMENT 2020-08-11 00:12:54 Doctor Unassigned, [place] [facility] XR FOREARM 2 VW LEFT 2020-08-07 14:03:06 Unique Richards [facility] COVID-19 (ID NOW RAPID TESTING) 2020-08-07 13:35:00 Roberto Richards [facility] NOTICE OF PRIVACY PRACTICES 2020-08-07 13:13:25 Doctor Unassigned, [place] [facility] CONSENT/REFUSAL FOR DIAGNOSIS AND TREATMENT 2020-08-07 13:11:06 Doctor Unassigned, [place] [facility] CONSENT/REFUSAL FOR DIAGNOSIS AND TREATMENT 2020-08-07 13:10:57 Doctor Unassigned, [place] [facility] TROPONIN I 2020-07-01 02:03:[address] [facility] POCT TEST 2020-07-01 00:51:00 Abdias Robertson [facility] URINALYSIS 2020-07-01 00:48:[address] [facility] CBC WITH DIFF 2020-07-01 00:12:[address] [facility] EXTRA TUBE LT. BLUE 2020-07-01 00:12:[address] [facility] LIPASE 2020-07-01 00:09:[address] [facility] TROPONIN I 2020-07-01 00:09:[address] BASIC METABOLIC PANEL (NA, K, CL, CO2, GLUCOSE, BUN, CREATININE, CA) 2020-07-01 00:09:00 Jessica [facility] ADC,CLC OR LCC ONLY - INFLUENZA A & B DIRECT ANTIGEN 2020-07-01 00:09:00 Jessica [facility] N-TERMINAL PRO-BNP 2020-07-01 00:09:00 Jessica [facility] XR CHEST 1 VW 2020-07-01 00:07:07 Abdias [facility] NOTICE OF PRIVACY PRACTICES 2020-06-30 23:27:46 Doctor Unassigned, [place] [facility] CT CERVICAL SPINE WO CONTRAST 2020-06-28 23:12:00 Klaudia Narvaez [facility] CONSENT/REFUSAL FOR DIAGNOSIS AND TREATMENT 2020-06-28 21:52:44 Doctor Unassigned, [place] [facility] POCT TEST 2020-06-13 01:50:00 Leeanne Wise [facility] XR CHEST 1 VW 2020-06-13 01:18:17 Leeanne Wise [facility] URINALYSIS 2020-06-13 00:34:00 Leeanne Wise [facility] COVID-19 (ID NOW RAPID TESTING) 2020-06-13 00:34:00 Leeanne Wise [facility] LIPASE 2020-06-13 00:33:00 Leeanne Wise [facility] TROPONIN I 2020-06-13 00:33:00 Mehnaz Leeanne G [facility] HEPATIC FUNCTION PANEL (21793) (ALB,T.PRO,BILI T,BU/BC,ALT,AST,ALK PHOS) 2020-06-13 00:33:00 Leeanne Wise [facility] BASIC METABOLIC PANEL (NA, K, CL, CO2, GLUCOSE, BUN, CREATININE, CA) 2020-06-13 00:33:00 Leeanne Wise [facility] CBC WITH DIFF 2020-06-13 00:33:00 Leeanne Wise [facility] D-DIMER 2020-06-13 00:33:00 Leeanne Wise [facility] CONSENT/REFUSAL FOR DIAGNOSIS AND TREATMENT 2020-06-12 23:27:48 Doctor Unassigned, [place] [facility] COVID-19 (ID NOW RAPID TESTING) 2020-05-16 23:50:00 Bushra Rios [facility] LIPASE 2020-05-16 23:21:00 [facility] (73731) (ALB,T.PRO,BILI T,BU/BC,ALT,AST,ALK PHOS) 2020-05-16 23:21:00 Bushra Rios [facility] BASIC METABOLIC PANEL (NA, K, CL, CO2, GLUCOSE, BUN, CREATININE, CA) 2020-05-16 23:21:00 Bushra Rios [facility] CBC WITH DIFF 2020-05-16 23:21:00 [facility] AC[facility] 2020-05-15 07:42:00 Roberto Richards [facility] CT ABDOMEN PELVIS W CONTRAST 2020-05-15 06:56:53 Roberto Richards [facility] CT HEAD WO CONTRAST 2020-05-15 06:56:27 Alberta Richards [facility] POCT TEST 2020-05-15 05:53:00 Alberta Richards [facility] LIPASE 2020-05-15 05:52:00 [facility] HEPATIC FUNCTION PANEL ([id number]) (ALB,T.PRO,BILI T,BU/BC,ALT,AST,ALK PHOS) 2020-05-15 05:52:00 Roberto Richards [facility] BASIC METABOLIC PANEL (NA, K, CL, CO2, GLUCOSE, BUN, CREATININE, CA) 2020-05-15 05:52:00 Roberto Richards [facility] ETHANOL 2020-05-15 05:52:00 [facility] CBC WITH DIFF 2020-05-15 05:52:00 Roberto Richards [facility] PROTHROMBIN TIME / INR 2020-05-15 05:52:00 Jalen Richards [facility] ACTIVATED PARTIAL THRMPLAS MARCIO 2020-05-15 05:52:00 Roberto Richards [facility] URINALYSIS 2020-05-15 05:52:00 [facility] ADC / LCC - DRUG SCREEN TRIAGE 2020-05-15 05:52:00 Roberto Richards [facility] NOTICE OF PRIVACY PRACTICES 2020-05-15 05:12:38 Doctor Unassigned, [place] [facility] CONSENT/REFUSAL FOR DIAGNOSIS AND TREATMENT 2020-05-15 05:12:26 Doctor Unassigned, [place] [facility] Encounters Start Date/Time End Date/Time Encounter Type Admission Type Attending [facility] Facility Care Department Encounter ID Source 2025-03-02 00:00:00 2025-03-02 00:00:00 Outpatient VAHE DURAND [id number] [facility] 2025-02-15 10:00:00 2025-02-15 10:00:00 Outpatient CHRISTINA PAGE [id number] [facility] 2025-01-22 10:20:00 2025-01-22 10:20:00 Outpatient CYNTHIA ROMEO [id number] [facility] 2025-01-16 00:00:00 2025-01-16 00:00:00 Outpatient RIDDHI MONTES [id number] [facility] 2025-01-07 15:00:00 2025-01-07 15:00:00 Outpatient VAHE DURAND KELLEE [id number] [facility] 2025-01-07 00:00:00 2025-01-07 00:00:00 Outpatient NAY ALMONTE KELLEE [id number] [facility] 2024-12-20 00:00:00 2024-12-20 00:00:00 Outpatient RIDDHI MONTES KELLEE [id number] [facility] 2024-12-17 10:00:00 2024-12-17 10:00:00 Outpatient NEO VALADEZ KELLEE KELLEE [id number] [facility] 2024-12-16 13:30:00 2024-12-16 13:30:00 Outpatient RIDDHI MONTES KELLEE [id number] [facility] 2024-12-15 21:04:00 2024-12-15 22:54:00 Emergency BOB WAYNE WAKILI [facility] ERT [id number] [facility] 2024-12-14 13:31:00 2024-12-14 16:50:00 Emergency Kiran Rivero [facility] 1.2.840.114 350.1.13.10 4.2.7.2.686 [id number] [facility] 2024-12-10 18:18:00 2024-12-10 21:28:00 Emergency ER ARELIS KERN [facility] [id number] [facility] 2024-12-10 18:18:00 2024-12-10 21:28:00 Departed Emergency Room [facility] [id number] [facility] 2024-12-09 00:00:00 2024-12-10 02:04:16 Orders Only Doctor Unassigned, [place] Doctor Unassigned, [place] [facility] ConchitaRAFAL) 1.2.840.114 350.1.13.10 4.2.7.2.686 [id number] [facility] 2024-12-08 19:58:00 2024-12-08 21:51:00 Emergency X MAURICE ROBERTO NYE [facility] ERT [id number] [facility] 2024-12-02 13:30:00 2024-12-02 13:30:00 Outpatient RIDDHI MONTES [id number] [facility] 2024-12-02 09:30:00 2024-12-02 09:30:00 Outpatient CATHY STRICKLAND [id number] [facility] 2024-12-02 00:00:00 2024-12-02 00:00:00 Outpatient MD KELLEE CHOI [id number] [facility] 2024-12-02 00:00:00 2024-12-02 00:00:00 Outpatient RIDDHI MONTES [id number] [facility] 2024-12-01 00:00:00 2024-12-01 09:53:20 Transition of Care Piper Mercedes Antoinette [address] 1.2.840.114 350.1.13.10 4.2.7.2.686 [id number] [facility] 2024-11-26 17:54:00 2024-11-27 13:31:00 Hospital Encounter X ALEXX KWOK [facility] [id number] [facility] 2024-11-27 00:00:00 2024-11-27 00:00:00 Outpatient KELLEE DORMAN [id number] [facility] 2024-11-20 00:00:00 2024-11-20 00:00:00 Outpatient RIDDHI MONTES [id number] [facility] 2024-11-18 13:15:00 2024-11-18 13:15:00 Outpatient TATIANNA MAN [id number] [facility] 2024-11-16 00:00:00 2024-11-16 00:00:00 Outpatient JYOTI RIDDHI KELLEE DORMAN [id number] [facility] 2024-11-15 11:45:00 2024-11-15 15:15:00 Emergency ER SHERIDAN MCMANUS [facility] [id number] [facility] 2024-11-15 11:45:00 2024-11-15 15:15:00 Departed Emergency Room [facility] [id number] [facility] 2024-11-15 10:15:00 2024-11-15 10:15:00 Outpatient NEIL SHULTZ [id number] [facility] 2024-11-14 20:45:00 2024-11-14 22:18:00 Emergency X BUSHRA RIOS SANDRA [facility] ERT [id number] [facility] 2024-11-14 20:45:00 2024-11-14 22:18:00 Emergency X BUSHRA RIOS SANDRA [facility] ERT [id number] [facility] 2024-11-14 00:00:00 2024-11-14 00:00:00 Outpatient MARLINLee RIDDHI DORMAN [id number] [facility] 2024-11-10 19:56:00 2024-11-11 01:04:00 Emergency X BOB GARCIA WAKILI [facility] ERT [id number] [facility] 2024-11-10 19:56:00 2024-11-11 01:04:00 Emergency Bob Garcia [facility] 1.2.840.114 350.1.13.10 4.2.7.2.686 [id number] [facility] 2024-11-10 13:30:00 2024-11-10 13:30:00 Outpatient JYOTI RIDDHI DORMAN [id number] [facility] 2024-11-10 13:30:00 2024-11-10 13:30:00 Outpatient HUNDL, RIDDHI KELLEE DORMAN [id number] [facility] 2024-11-05 00:00:00 2024-11-05 09:33:29 Transition of Care Piper Mercedes Piper [facility] 1.2.840.114 350.1.13.10 4.2.7.2.686 [id number] [facility] 2024-10-31 21:29:00 2024-11-04 15:00:00 Inpatient X CRIS HEMYARI, KAUR LYNCH HEMYARI, KAUR [facility] [id number] [facility] 2024-10-31 21:29:00 2024-11-04 15:00:00 Hospital Encounter Bob Garcia Jelani Al Hemlaly, Elliott Alvarado [facility] 1.2.840.114 350.1.13.10 4.2.7.2.686 [id number] [facility] 2024-11-03 18:20:00 2024-11-03 19:20:00 Surgery Dane Jurado [facility] 1.2.840.114 350.1.13.10 4.2.7.2.686 [id number] [facility] 2024-11-02 00:00:00 2024-11-02 00:00:00 Outpatient KELLEE DORMAN [id number] [facility] 2024-11-02 00:00:00 2024-11-02 00:00:00 Outpatient KELLEE DORMAN [id number] [facility] 2024-10-28 14:15:00 2024-10-28 14:15:00 Outpatient TATIANNA MAN [id number] [facility] 2024-10-26 11:30:00 2024-10-26 11:30:00 Outpatient FLORINDA REYES [id number] [facility] 2024-10-23 20:18:00 2024-10-23 23:54:00 Emergency X VASUT, JUANJOSE EDNA, JUANJOSE [facility] ERT [id number] [facility] 2024-10-23 20:18:00 2024-10-23 23:54:00 Emergency Juanjose Barker J [facility] 1.2.840.114 350.1.13.10 4.2.7.2.686 [id number] [facility] 2024-10-23 10:30:00 2024-10-23 10:30:00 Outpatient RIDDHI MONTES [id number] [facility] 2024-10-19 00:00:00 2024-10-19 00:00:00 Outpatient RIDDHI MONTES [id number] [facility] 2024-10-13 23:15:00 2024-10-14 19:39:00 Inpatient ER SELENA DEL [facility] [id number] [facility] 2024-10-13 23:15:00 2024-10-14 19:39:00 Discharged Inpatient (obs) [facility] [id number] [facility] 2024-10-14 00:00:00 2024-10-14 00:00:00 Outpatient KELLEE DORMAN [id number] [facility] 2024-10-12 22:30:00 2024-10-13 02:45:00 Emergency X BOB GARCIA WAKILI [facility] ERT [id number] [facility] 2024-10-12 22:30:00 2024-10-13 02:45:00 Emergency Bob Garcia [facility] 1..840.114 350.1.13.10 4.2.7.2.686 [id number] [facility] 2024-09-23 13:30:00 2024-09-23 13:30:00 Outpatient GISELLE OSORIO [id number] [facility] 2024-09-23 00:00:00 2024-09-23 00:00:00 Outpatient KELLEE DORMAN [id number] [facility] 2024-09-17 00:00:00 2024-09-17 00:00:00 Outpatient MD KELLEE CHOI [id number] [facility] 2024-09-15 11:15:00 2024-09-15 11:15:00 Outpatient KELLEE DORMAN [id number] [facility] 2024-09-15 10:45:00 2024-09-15 10:45:00 Outpatient KELLEE DORMAN [id number] [facility] 2024-09-15 10:15:00 2024-09-15 10:15:00 Outpatient KELLEE DORMAN [id number] [facility] 2024-09-15 07:30:00 2024-09-15 07:30:00 Outpatient KELLEE DORMAN [id number] [facility] 2024-09-15 00:00:00 2024-09-15 00:00:00 Outpatient GISELLE OSORIO [id number] [facility] 2024-09-06 00:00:00 2024-09-06 00:00:00 Outpatient RIDDHI MONTES [id number] [facility] 2024-09-01 00:00:00 2024-09-01 00:00:00 Outpatient RIDDHI MONTES [id number] [facility] 2024-08-27 00:00:00 2024-08-27 00:00:00 Outpatient CONRADO SMITH [id number] [facility] 2024-08-20 16:45:00 2024-08-20 16:45:00 Outpatient JÚNIOR FARRELL [id number] [facility] 2024-08-18 10:00:00 2024-08-18 10:00:00 Outpatient RIDDHI MONTES [id number] [facility] 2024-08-05 15:30:00 2024-08-05 15:30:00 Outpatient CONRADO SMITH [id number] [facility] 2024-08-03 00:00:00 2024-08-03 00:00:00 Outpatient ZACHRAY MONTESY KELLEE DORMAN [id number] [facility] 2024-07-18 22:48:00 2024-07-19 01:24:00 Emergency X Saleem [facility] [id number] [facility] 2024-07-18 22:48:00 2024-07-19 01:24:00 Emergency Saleem Edward [facility] 1.2.840.114 350.1.13.10 4.2.7.2.686 [id number] [facility] 2024-07-15 00:00:00 2024-07-15 00:00:00 Outpatient RIDDHI MONTES [id number] [facility] 2024-07-10 00:00:00 2024-07-10 00:00:00 Outpatient RIDDHI MONTES [id number] [facility] 2024-07-09 00:00:00 2024-07-09 00:00:00 Outpatient RADIOLOGY, DEPTrice DORMAN [id number] [facility] 2024-07-09 00:00:00 2024-07-09 00:00:00 Outpatient RADIOLOGY, DEPT KELLEE DORMAN [id number] [facility] 2024-07-07 00:00:00 2024-07-07 00:00:00 Outpatient MD KELLEE CHOI [id number] [facility] 2024-07-06 07:00:00 2024-07-06 07:00:00 Outpatient KELLEE DORMAN [id number] [facility] 2024-07-06 00:00:00 2024-07-06 00:00:00 Outpatient GISELLE OSORIO [id number] [facility] 2024-07-03 19:56:00 2024-07-04 01:32:00 Emergency X SANDY GARCIA SHINTA [facility] ERT [id number] [facility] 2024-07-03 19:56:00 2024-07-04 01:32:00 Emergency Sandy Garcia [facility] 1.2.840.114 350.1.13.10 4.2.7.2.686 [id number] [facility] 2024-06-21 02:04:00 2024-06-21 02:59:00 Emergency X SANDY GARCIA SHINTA [facility] ERT [id number] [facility] 2024-06-21 02:04:00 2024-06-21 02:59:00 Emergency Sandy Garcia [facility] 1.2.840.114 350.1.13.10 4.2.7.2.686 [id number] [facility] 2024-06-20 00:00:00 2024-06-20 00:00:00 Outpatient RIDDHI MONTES [id number] [facility] 2024-06-18 00:00:00 2024-06-18 00:00:00 Outpatient GISELLE OSORIO [id number] [facility] 2024-06-17 15:30:00 2024-06-17 15:30:00 Outpatient KELLEE DORMAN [id number] [facility] 2024-06-14 21:28:00 2024-06-15 00:28:00 Emergency X SANDY GARCIA SHINTA [facility]JULIANE ERT [id number] [facility] 2024-06-14 21:28:00 2024-06-15 00:28:00 Emergency Sandy Garcia [facility] 1.2.840.114 350.1.13.10 4.2.7.2.686 [id number] [facility] 2024-06-06 21:56:00 2024-06-07 02:40:00 Emergency BOB WAYNE WAKILI [facility] ERT [id number] [facility] 2024-06-06 21:56:00 2024-06-07 02:40:00 Emergency Bob Garcia [facility] 1..840.114 350.1.13.10 4.2.7.2.686 [id number] [facility] 2024-06-02 00:00:00 2024-06-02 00:00:00 Outpatient RIDDHI MONTES [id number] [facility] 2024-05-28 13:00:00 2024-05-28 13:00:00 Outpatient GISELLE OSORIO [id number] [facility] 2024-05-20 00:00:00 2024-05-20 00:00:00 Outpatient RIDDHI MONTES [id number] [facility] 2024-05-19 11:44:00 2024-05-19 13:35:00 Emergency X RAFAL WRIGHT [facility] ERT [id number] [facility] 2024-05-19 11:44:00 2024-05-19 13:35:00 Emergency GiaRafal gamboa [facility] ..840.114 350.1.13.10 4.2.7.2.686 [id number] [facility] 2024-05-18 11:15:00 2024-05-18 11:15:00 Outpatient LAB90 KELLEE DORMAN [id number] [facility] 2024-05-18 10:30:00 2024-05-18 10:30:00 Outpatient RIDDHI MONTES [id number] [facility] 2024-05-17 18:30:00 2024-05-17 22:19:00 Emergency Tammy Roya [facility] 1..840.114 [id number] [facility] 2024-05-13 18:04:00 2024-05-13 20:42:00 Emergency ER ARELIS KERN [facility] [id number] [facility] 2024-05-12 00:00:00 2024-05-12 00:00:00 Outpatient RIDDHI MONTES [id number] [facility] 2024-05-07 18:47:00 2024-05-07 21:36:00 Emergency Saleem Edward [facility] 1..840.114 [id number] [facility] 2024-04-22 09:15:00 2024-04-22 09:15:00 Outpatient FARTUN GILLESPIE [id number] [facility] 2024-04-15 10:30:00 2024-04-15 10:30:00 Outpatient RIDDHI MONTES [id number] [facility] 2024-04-12 00:00:00 2024-04-12 00:00:00 Outpatient RIDDHI MONTES [id number] [facility] 2024-04-10 16:20:00 2024-04-10 18:53:00 Emergency ER TAVARES MG JR [facility] [id number] [facility] 2024-04-10 16:20:00 2024-04-10 18:53:00 Departed Emergency Room [facility] [id number] 85 [facility] 2024-04-08 17:37:00 2024-04-08 20:38:00 Emergency Florentino Jacque [facility] [facility] 1..840.114 350.1.13.10 4.2.7.2.686 [id number] [facility] 2024-04-08 00:00:00 2024-04-08 00:00:00 Outpatient HUNDL, RIDDHI KELLEE DORMAN [id number] [facility] 2024-03-12 00:00:00 2024-03-12 00:00:00 Outpatient HUNDL, RIDDHI DORMAN [id number] [facility] 2024-03-06 11:00:00 2024-03-06 11:00:00 Outpatient HUNDL, RIDDHI [facility] [id number] [facility] 11:00:00 2024-02-06 11:00:00 Outpatient OJGISELLE KELLEE DORMAN [id number] [facility] 2024-02-06 10:40:00 2024-02-06 10:40:00 Outpatient KELLEE DORMAN [id number] [facility] 2024-02-06 00:00:00 2024-02-06 00:00:00 Outpatient HUNDL, RIDDHI DORMAN [id number] [facility] 2024-02-05 00:00:00 2024-02-05 00:00:00 Outpatient HUNDL, [facility]IDDHI DORMAN [id number] [facility] 2024-01-14 09:30:00 2024-01-14 09:30:00 Outpatient HUNDL, RIDDHI DORMAN [id number] [facility] 2024-01-09 00:00:00 2024-01-09 00:00:00 Outpatient HUNDL, RIDDHI DORMAN [id number] [facility] 2024-01-06 00:00:00 2024-01-06 00:00:00 Outpatient HUNDL, RIDDHI DORMAN [id number] [facility] 2024-01-03 00:00:00 2024-01-03 00:00:00 Outpatient HUNDL, RIDDHI DORMAN [id number] [facility] 2024-01-02 14:00:00 2024-01-02 14:00:00 Outpatient HUNDL, RIDDHI DORMAN [id number] [facility] 2023-12-13 09:30:00 2023-12-13 09:30:00 Outpatient RIDDHI MONTES KELLEE [id number] [facility] 2023-12-09 00:00:00 2023-12-09 00:00:00 Outpatient RIDDHI MONTES [id number] [facility] 2023-12-05 00:00:00 2023-12-05 00:00:00 Outpatient RIDDHI MONTESSEY [id number] [facility] 2023-12-03 11:45:00 2023-12-03 11:45:00 Outpatient LAB90 KELLEE KELLEE [id number] [facility] 2023-12-03 11:00:00 2023-12-03 11:00:00 Outpatient RIDDHI MONTES KELLEE [id number] [facility] 2023-11-26 00:00:00 2023-11-26 00:00:00 Outpatient RIDDHI MONTES KELLEE [id number] [facility] 2023-10-31 00:00:00 2023-10-31 00:00:00 Outpatient COSMO DORMAN KELLEE [id number] [facility] 2023-10-31 00:00:00 2023-10-31 00:00:00 Outpatient COSMO DORMAN KELLEE [id number] [facility] 2023-10-29 14:15:00 2023-10-29 14:15:00 Outpatient LAB90 KELLEE KELLEE [id number] [facility] 2023-10-29 13:30:00 2023-10-29 13:30:00 Outpatient RIDDHI MONTES KELLEE [id number] [facility] 2023-10-10 21:31:00 2023-10-11 00:43:00 Emergency X BBO GARCIA [facility] ERT [id number] [facility] 2023-10-10 21:31:00 2023-10-11 00:43:00 Emergency Bob Garcia [facility] 1.2.840.114 350.1.13.10 4.2.7.2.686 [id number] [facility] 2023-08-31 18:02:00 2023-08-31 22:40:00 emergency [facility] [id number] 2023-08-31 18:02:00 2023-08-31 22:40:00 Emergency ER SHERIDAN MCMANUS [facility] [id number] [facility] 2023-07-01 19:50:00 2023-07-01 22:59:00 Emergency X ROBERTO RICHARDS [facility] ERT [id number] [facility] 2023-07-01 19:50:00 2023-07-01 22:59:00 Emergency Roberto Richards [facility] 1.2.840.114 350.1.13.10 4.2.7.2.686 [id number] [facility] 2023-06-04 23:37:00 2023-06-06 13:30:00 observatio n encounter [facility] [id number] edc [id number] 2023-06-04 23:37:00 2023-06-06 13:30:00 Inpatient ER JOSIEMONICA HERMELINDAPamela [employer] [id number] [facility] 2023-05-11 01:16:00 2023-05-13 17:04:00 Inpatient ER SHAMEKADORONRIDDHI [facility] [id number] [facility] 2023-05-11 01:16:00 2023-05-13 17:04:00 observatio n encounter [facility] [id number] edc [id number] 2023-05-10 21:48:00 2023-05-10 21:48:00 Emergency ER AN IRIZARRY [facility] [id number] [facility] 2023-05-09 17:40:00 2023-05-09 20:30:00 Emergency KLAUDIA MATA [facility] ERT [id number] [facility] 2023-05-09 17:40:00 2023-05-09 20:30:00 Emergency Klaudia Narvaez [facility] 1.2.840.114 350.1.13.10 4.2.7.2.686 [id number] [facility] 2023-05-05 21:31:00 2023-05-06 03:15:00 Emergency ER SHERIDAN MCMANUS [facility] [id number] [facility] 2023-05-05 21:31:00 2023-05-06 03:15:00 emergency [facility] [id number] 2023-04-30 17:18:00 2023-04-30 21:20:00 Emergency X KLAUDIA NARVAEZ [facility] ERT [id number] [facility] 2023-04-30 17:18:00 2023-04-30 21:20:00 Emergency Klaudia Narvaez [facility] 1.2840.114 350.1.13.10 4.2.7.2.686 [id number] [facility] 2023-04-16 20:40:00 2023-04-16 23:10:00 Emergency X ROBERTO RICHARDS [facility] ERT [id number] [facility] 2023-04-16 20:40:00 2023-04-16 23:10:00 Emergency Roberto Richards [facility] 1.2.840.114 350.1.13.10 4.2.7.2.686 [id number] [facility] 2023-04-08 17:28:00 2023-04-08 21:20:00 Emergency X Saleem EDWARD [facility] ERT [id number] [facility] 2023-04-08 17:28:00 2023-04-08 21:20:00 Emergency Saleem Edward [facility] 1.2.840.114 350.1.13.10 4.2.7.2.686 [id number] [id number] [facility] 2023-03-09 20:23:00 2023-03-10 00:20:00 Emergency X ROBERTO RICHARDS [facility] ERT [id number] [facility] 2023-03-09 20:23:00 2023-03-10 00:20:00 Emergency Roberto Richards [facility] 1.2.840.114 350.1.13.10 4.2.7.2.686 [id number] [id number] [facility] 2023-03-01 19:35:00 2023-03-02 01:35:00 Emergency X BOB GARCIA [facility] ERT [id number] [facility] 2023-03-01 19:35:00 2023-03-02 01:35:00 Emergency Bob Garcia [facility] 1.2.840.114 350.1.13.10 4.2.7.2.686 [id number] [id number] [facility] 2023-02-17 22:58:00 2023-02-18 02:22:00 Emergency X APPLE PADGETT [facility] ERT [id number] [facility] 2023-02-17 22:58:00 2023-02-18 02:22:00 Emergency Apple Padgett [facility] 1.2.840.114 350.1.13.10 4.2.7.2.686 [id number] [facility] 2023-02-15 13:46:00 2023-02-17 16:14:00 Outpatient X ZAY MONTERO [facility] ALTHEA [id number] [facility] 2023-02-15 13:46:00 2023-02-17 16:14:00 Emergency Leeanne Wise Jelani [facility] 1.2.840.114 350.1.13.10 4.2.7.2.686 [id number] [facility] 2022-01-09 16:47:00 2022-01-09 20:28:00 Emergency X MELIDA LONGORIA [facility] ERT [id number] [facility] 2022-01-09 16:47:00 2022-01-09 20:28:00 Emergency Merlin Longoriaio C [facility] 1.2.840.114 350.1.13.10 4.2.7.2.686 [id number] [facility] 2021-12-13 22:16:00 2021-12-14 02:28:00 Emergency WIL SANCHEZ [facility] ERT [id number] [facility] 2021-12-13 22:16:00 2021-12-14 02:28:00 Emergency Wil Mcqueen [facility] 1.2.840.114 350.1.13.10 4.2.7.2.686 [id number] [facility] 2021-11-11 19:50:00 2021-11-11 23:17:00 Emergency X EDDIE WANGQuincy [facility] ERT [id number] [facility] 2021-11-11 19:50:00 2021-11-11 23:17:00 Emergency Juan Jbailee Rosaginnaquincy F [facility] 1.2.840.114 350.1.13.10 4.2.7.2.686 [id number] [id number] [facility] 2021-11-11 00:00:00 2021-11-11 00:00:00 Orders Only Doctor Unassigned, [place] [facility] 1.20.114 350.1.13.10 4.2.7.2.686 [id number] [facility] 2021-09-11 19:42:00 2021-09-11 23:02:00 Emergency X APPLE WANG [facility] ERT [id number] [facility] 2021-09-11 19:42:00 2021-09-11 23:02:00 Emergency Apple Wang [facility] 1.20.114 350.1.13.10 4.2.7.2.686 [id number] [id number] [facility] 2021-08-14 23:38:00 2021-08-15 02:29:00 Emergency X BOB GARCIA [facility] ERT [id number] [facility] 2021-08-14 23:38:00 2021-08-15 02:29:00 Emergency Bob Garcia [facility] 1.20.114 350.1.13.10 4.2.7.2.686 [id number] [facility] 2021-05-27 23:23:00 2021-05-28 04:23:00 Emergency X CEM CHOI [facility] ERT [id number] [facility] 2021-05-27 23:23:00 2021-05-28 04:23:00 Emergency Cem Choi [facility] 1.2.114 350.1.13.10 4.2.7.2.686 [id number] [facility] 2021-04-10 00:00:00 2021-04-10 00:00:00 Transition of Care Shelley Rosas 1.20.114 350.1.13.10 4.2.7.2.686 [id number] [facility] 2021-04-07 16:30:00 2021-04-08 17:45:00 Hospital Encounter Roberto Richards Jelani [facility] 1.2.840.114 350.1.13.10 4.2.7.2.686 [id number] [facility] 2021-04-07 16:18:00 2021-04-07 16:18:00 Emergency X [facility] ERT [id number] [facility] 2021-01-12 03:01:00 2021-01-12 04:56:00 Emergency Klaudia Narvaez [facility] 1.2.840.114 350.1.13.10 4.2.7.2.686 [id number] [id number] [facility] 2021-01-12 03:01:00 2021-01-12 03:01:00 Emergency X KLAUDIA NARVAEZ [facility] ERT [id number] [facility] 2020-12-10 17:12:00 2020-12-10 21:14:00 Emergency Bal Hassan [facility] 1.2.840.114 350.1.13.10 4.2.7.2.686 [id number] [id number] [facility] 2020-12-10 17:12:00 2020-12-10 17:12:00 Emergency X BAL HASSAN [facility] ERT [id number] [facility] 2020-12-04 14:50:00 2020-12-04 17:08:00 Emergency Tremaine Becerra [facility] 1.2.840.114 350.1.13.10 4.2.7.2.686 [id number] [facility] 2020-12-04 14:50:00 2020-12-04 17:08:00 Emergency X TREMAINE BECERRA [facility] ERT [id number] [facility] 2020-11-03 20:44:00 2020-11-03 23:34:00 Emergency Leeanne Wise [facility] 1.2.840.114 350.1.13.10 4.2.7.2.686 [id number] [facility] 2020-11-03 20:44:00 2020-11-03 23:34:00 Emergency X LEEANNE WISE [facility] ERT [id number] [facility] 2020-09-19 12:32:00 2020-09-19 14:15:00 Emergency ER MORA POLLOCK [facility] [id number] [facility] 2020-09-17 09:53:00 2020-09-17 11:55:00 Emergency Leeanne Wise [facility] 1.2.840.114 350.1.13.10 4.2.7.2.686 [id number] [id number] [facility] 2020-09-17 09:53:00 2020-09-17 11:55:00 Emergency X LEEANNE WISE [facility] ERT [id number] [facility] 2020-09-17 09:53:00 2020-09-17 11:55:00 Emergency Leeanne Wise [facility] 1.2.840.114 350.1.13.10 4.2.7.2.686 [id number] [id number] 2020-09-07 00:37:00 2020-09-07 01:41:00 Emergency Saleem Edward [facility] 1.2.840.114 350.1.13.10 4.2.7.2.686 [id number] [id number] [facility] 2020-09-07 00:37:00 2020-09-07 01:41:00 Emergency X Saleem EDWARD [facility] ERT [id number] [facility] 2020-09-07 00:37:00 2020-09-07 01:41:00 Emergency Saleem Edward [facility] 1.2.840.114 350.1.13.10 4.2.7.2.686 [id number] [id number] 2020-09-07 00:00:00 2020-09-07 00:00:00 Orders Only Doctor Unassigned, [place] [facility] 1.2.840.114 350.1.13.10 4.2.7.2.686 [id number] [facility] 2020-09-07 00:00:00 2020-09-07 00:00:00 Orders Only Doctor Unassigned, [place] [facility] 1.2.840.114 350.1.13.10 4.2.7.2.686 [id number] 2020-08-28 01:59:00 2020-08-28 04:40:00 Emergency Bob Garcia [facility] 1.2.840.114 350.1.13.10 4.2.7.2.686 [id number] [id number] [facility] 2020-08-28 01:59:00 2020-08-28 04:40:00 Emergency Bob Garcia [facility] 1.2.840.114 350.1.13.10 4.2.7.2.686 [id number] [id number] 2020-08-28 01:59:00 2020-08-28 01:59:00 Emergency X BOB GARCIA [facility] ERT [id number] [facility] 2020-08-14 11:48:00 2020-08-14 13:42:00 Emergency Best Taylor [facility] 1.2.840.114 350.1.13.10 4.2.7.2.686 [id number] [facility] 2020-08-14 11:48:00 2020-08-14 13:42:00 Emergency Best Taylor [facility] 1.2.840.114 350.1.13.10 4.2.7.2.686 [id number] [id number] 2020-08-14 11:33:00 2020-08-14 11:33:00 Emergency BEST BORGES [facility] ERT [id number] [facility] 2020-08-10 18:35:00 2020-08-11 00:05:00 [facility] 1.2.840.114 350.1.13.10 4.2.7.2.686 [id number] [facility] 2020-08-10 18:35:00 2020-08-11 00:05:00 Emergency BOB WAYNE [facility] ERT [id number] [facility] 2020-08-10 18:35:00 2020-08-11 00:05:00 [facility] 1.2.840.114 350.1.13.10 4.2.7.2.686 [id number] [id number] 2020-08-07 07:19:00 2020-08-07 09:02:00 Emergency Maurice [facility] 1.2.840.114 350.1.13.10 4.2.7.2.686 [id number] [facility] 2020-08-07 07:19:00 2020-08-07 09:02:00 Emergency Maurice [facility] 1.2.840.114 350.1.13.10 4.2.7.2.686 [id number] 2020-08-07 07:12:00 2020-08-07 07:12:00 Emergency X [facility] ERT [id number] [facility] 2020-08-07 00:00:00 2020-08-07 00:00:00 Orders Only Doctor Unassigned, [place] [facility] 1.2.840.114 350.1.13.10 4.2.7.2.686 [id number] [facility] 2020-08-07 00:00:00 2020-08-07 00:00:00 Orders Only Doctor Unassigned, [place] [facility] 1.2.840.114 350.1.13.10 4.2.7.2.686 [id number] 2020-07-01 00:00:00 2020-07-01 00:00:00 Letter (Out) [facility] 1.2.840.114 350.1.13.10 4.2.7.2.686 [id number] [facility] 2020-07-01 00:00:00 2020-07-01 00:00:00 Letter (Out) [facility] 1.2.840.114 350.1.13.10 4.2.7.2.686 [id number] 2020-06-30 17:46:00 2020-06-30 21:06:00 Emergency Abdias Robertson [facility] 1.2.840.114 350.1.13.10 4.2.7.2.686 [id number] [facility] 2020-06-30 17:46:00 2020-06-30 21:06:00 Emergency X ABDIAS ROBERTSON [facility] ERT [id number] [facility] 2020-06-30 17:46:00 2020-06-30 21:06:00 Emergency Abdias Robertson [facility] 1.2.840.114 350.1.13.10 4.2.7.2.686 [id number] 2020-06-28 16:00:00 2020-06-28 18:08:00 Emergency Klaudia Narvaez [facility] 1.2.840.114 350.1.13.10 4.2.7.2.686 [id number] [facility] 2020-06-28 16:00:00 2020-06-28 18:08:00 Emergency Klaudia Narvaez [facility] 1.2.840.114 350.1.13.10 4.2.7.2.686 [id number] 2020-06-28 16:00:00 2020-06-28 16:00:00 Emergency X KLAUDIA NARVAEZ [facility] ERT [id number] [facility] 2020-06-14 00:00:00 2020-06-14 00:00:00 Telephone [facility] 1.2.840.114 350.1.13.10 4.2.7.2.686 [id number] [facility] 2020-06-14 00:00:00 2020-06-14 00:00:00 Telephone [facility] 1.2.840.114 350.1.13.10 4.2.7.2.686 [id number] 2020-06-12 17:40:00 2020-06-12 22:05:00 Emergency Leeanne Wise [facility] 1.2.840.114 350.1.13.10 4.2.7.2.686 [id number] [facility] 2020-06-12 17:40:00 2020-06-12 22:05:00 Emergency Leeanne Wise [facility] 1.2.840.114 350.1.13.10 4.2.7.2.686 [id number] [id number] 2020-06-12 17:28:00 2020-06-12 17:28:00 Emergency X [facility] ERT [id number] [facility] 2020-05-16 17:10:00 2020-05-16 19:01:00 Emergency Bushra Rios [facility] 1.2.840.114 350.1.13.10 4.2.7.2.686 [id number] [facility] 2020-05-16 17:10:00 2020-05-16 19:01:00 Emergency Bushra Rios [facility] 1.2.840.114 350.1.13.10 4.2.7.2.686 [id number] [id number] 2020-05-16 17:10:00 2020-05-16 17:10:00 Emergency X BUSHRA RIOS [facility] ERT [id number] [facility] 2020-05-14 23:18:00 2020-05-15 02:54:00 Emergency Roberto Richards [facility] 1.2.840.114 350.1.13.10 4.2.7.2.686 [id number] [facility] 2020-05-14 23:18:00 2020-05-15 02:54:00 Emergency Roberto Richards [facility] 1.2.840.114 350.1.13.10 4.2.7.2.686 [id number] [id number] 2020-05-14 23:14:00 2020-05-14 23:14:00 Emergency X ROBERTO RICHARDS [facility] ERT [id number] [facility] 2009-07-18 05:35:00 2009-07-18 09:19:00 Emergency ER SINCERE FRANK [facility] [id number] [facility] 2008-10-08 09:55:00 2008-10-08 14:19:00 Emergency ER GUMARO ALVAREZ [facility] [id number] [facility] 2008-03-26 15:21:00 2008-03-26 18:08:00 Emergency ER NEIL WILKINS [facility] [id number] [facility] 2005-05-25 06:35:00 2005-05-25 06:35:00 Outpatient CATHERINE BOCANEGRALISA [facility] [id number] [facility] 2005-05-16 21:57:00 2005-05-16 23:40:00 Emergency ER JW SOLORZANO [facility] [id number] [facility] 2005-04-24 18:49:00 2005-04-24 22:40:00 Emergency ER JW SOLORZANO [facility] [id number] [facility] 2004-12-27 20:30:00 2004-12-28 01:40:00 Emergency ER SANIA SIBLEY [facility] [id number] [facility] 2003-12-07 22:40:00 2003-12-08 02:48:00 Emergency ER GINA MARTIN [facility] [id number] [facility] 2003-12-06 13:57:00 2003-12-06 18:30:00 Emergency ER GABRIELBELKISYIN [facility] [id number] [facility] 2003-08-31 19:43:00 2003-08-31 22:55:00 Emergency ER KIM GUMARO [facility] [id number] [facility] 2003-08-22 19:26:00 2003-08-22 22:10:00 Emergency ER ALBERTO CASTLE [facility] [id number] [facility] 2002-01-30 22:41:00 2002-01-31 01:29:00 Emergency ER ANTHONY SCHNEIDER [facility] [id number] [facility] 2001-10-28 09:15:00 2001-10-28 11:25:00 Emergency ER DARCIE MCKEON [facility] [id number] [facility] 2001-04-15 19:14:00 2001-04-15 23:10:00 Emergency ER ARLETTE ROBERT [facility] [id number] [facility] 2000-12-25 21:52:00 2000-12-26 00:15:00 Emergency ER GISELA RIOS [facility] [id number] [facility] 2000-12-23 18:51:00 2000-12-23 22:00:00 Emergency ER HUGO COFFMAN [facility] [id number] [facility] 1999-10-26 21:11:00 1999-10-27 00:20:00 Emergency ER JW SOLORZANO [facility] [id number] [facility] Results Test Description Test Time Test Comments Results Result Co mments Source [facility]:03* Test Item Value Reference Range Interpretation Comme nts LIPASE (test code = 2593817714) 77 U/L 0-220 Lab Interpretation (test cod e = 39699-1) Normal [facility] [id number] 19:48:00* Test Item Value Reference Range Interpretation Comme nts POCT PREG (test code = 1605) Negative On board controls acceptable with C Line (test code = 3574) Yes Lab Interpretation (test cod e = 26607-6) Normal [facility] [id number] 19:40:20* Test Item Value Reference Range Interpretation [...] 31.9 g/dL 31.6-35.1 RDW-SD (test code = 68176-9) 48.7 fL 39.0-49.9 RDW-CV (test code = 788-0) 17.2 % 12.0-15.5 H PLT (test code = 777-3) 444 166-358 H MPV (test code = 93100-4) 8.8 fL 9.5-12.9 L NRBC/100 WBC (test code = 7566410349) 0 0.0-10.0 NRBC x10^3 (test code = 1735038027) See_Comment [Automated messa ge] The system which generated this result transmitted reference range: 10*3/?L. The reference range was not used to interpret this result as normal/abnormal. GRAN MAT (NEUT) % (test code = 770-8) 70 % IMM GRAN % (test code = 8262792973) 0.4 % LYMPH % (test code = 736-9) 21.2 % MONO % (test code = 5905-5) 7 % EOS % (test code = 713-8) 1.2 % BASO % (test code = 706-2) 0.2 % GRAN MAT x10^3(ANC) (test code = 8808821498) 8.43 10*3/uL 1.88-7.09 H IMM GRAN x10^3 (test code = 4355324372) 0.05 10*3/uL 0.00-0.06 LYMPH x10^3 (test code = 731-0) 2.56 10*3/uL 1.32-3.29 MONO x10^3 (test code = 742-7) 0.85 10*3/uL 0.33-0.92 EOS x10^3 (test code = 711-2) 0.15 10*3/uL 0.03-0.39 BASO x10^3 (test code = 704-7) 0.03 10*3/uL 0.01-0.07 Lab Interpretation (test code = 89099-7) Abnormal [facility] or plasma cardiac troponin I panel by high sensitivity [id number] 21:02:00* Test Item Value Reference Range Interpretation Comme nts Troponin T High Sensitivity (test code = 39605-9) < 6.0 [facility]tr[facility]-proBNP [id number] 19:10:00* Test Item Value Reference Range Interpretation Comme nts YG-Zvz-M-Type Natriuretic Pe ptide (test code = 491342257) 173 [facility] or plasma creatine kinase MB (CK-MB) measurement by immunoassay (mass/volume)2024-12-10 19:09:00* Test Item Value Reference Range Interpretation Comme nts Creatine Kinase MB (test cod e = 81120-0) < 1.0 [facility] [id number]-[id number] 19:07:00* Test Item Value Reference Range Interpretation Comme nts D-Dimer (test code = 592856278) 227 [facility] or plasma glucose measurement (mass/volume) 2024-12-10 19:06:00* Test Item Value Reference Range Interpretation Comme nts Random Glucose (test code = 2345-7) 100 [facility] or plasma urea nitrogen measurement (mass/volume)2024-12-10 19:06:00* Test Item Value Reference Range Interpretation Comme nts Blood Urea Nitrogen (test co de = 3094-0) 10 [facility] ZqdUEV1799-01-33 19:06:00* Test Item Value Reference Range Interpretation Comme nts Aspartate Amino Transf (AST/ SGOT) (test code = KGH1264) 13 [facility] CtrBilirubin jhjys3362-83-67 19:06:00* Test Item Value Reference Range Interpretation Comme nts Total Bilirubin (test code = BLS5789) < 0.2 [facility] CtrEstimated glomerular filtration rate (GFR) kokacrvplhdil7736-71-02 19:06:00* Test Item Value Reference Range Interpretation Comme nts Glomerular Filtration Rate C alc (test code = 003837357) > 60.00 [facility] CtrBUN/creatinine rrvaf6182-43-41 19:06:00* Test Item Value Reference Range Interpretation Comme [facility] BUN/Creatinine Ratio (test c ode = 45596444) 20.8 [facility] CgxUU10729-42-33 19:06:00* Test Item Value Reference Range Interpretation Comme nts Carbon Dioxide Level (test c ode = 25293170) 25 [facility] CtrAnion gap xkjwprnfrhm2258-36-34 19:06:00* Test Item Value Reference Range Interpretation Comme nts Anion Gap (test code = 82520855) 13.6 [facility] CtrCalcium iahgj0166-08-16 19:06:00* Test Item Value Reference Range Interpretation Comme nts Calcium Level (test code = 70011384) 9.3 [facility] CtrGlobulin shh2000-32-95 19:06:00* Test Item Value Reference Range Interpretation Comme nts Globulin (test code = 182773403) 3.0 [facility] CtrALT (SGPT) ser/eeug4261-66-54 19:06:00* Test Item Value Reference Range Interpretation Comme nts Alanine Aminotransferase (AL T/SGPT) (test code = 1742-6) 11 [facility] OnuBfdzwk3693-77-14 19:06:00* Test Item Value Reference Range Interpretation Comme nts Lipase (test code = 146290271) 28 [facility] CtrALP ser/fekf3450-68-57 19:06:00* Test Item Value Reference Range Interpretation Comme nts Total Alkaline Phosphatase ( test code = 6768-6) 84 [facility] CtrCreatine kinase uawmeiuecyg1698-69-36 19:06:00* Test Item Value Reference Range Interpretation Comme nts Creatine Kinase (test code = 640164561) 35 [facility] CtrProthrombin oiwc9760-27-22 18:59:00* Test Item Value Reference Range Interpretation Comme nts Prothrombin Time (test code = 389452982) 10.3 [facility] CtrWhole blood INR cvzbpdauyzv9211-52-56 18:59:00* Test Item Value Reference Range Interpretation Comme nts Prothromb Time International Ratio (test code = 01811-4) 0.94 [facility] CtrActivated partial thromboplastin time (aPTT) in platelet poor plasma by coagulation hsvxe6999-21-57 18:59:00* Test Item Value Reference Range Interpretation Comme nts Activated Partial Thrombopla st Time (test code = 70128-5) 24.6 [facility] CtrSerum beta human chorionic gonadotropic (BhCG) nbpjthkns7386-58-97 18:59:00* Test Item Value Reference Range Interpretation Comme [facility] Serum Test, Qualit ative (test code = 2110-5) NEGATIVE [facility] CtrAbsolute eosinophil npegp4124-96-49 18:48:00* Test Item Value Reference Range Interpretation Comme [facility] Eosinophils # (Auto) (test c ode = RGL3450) 0.24 [facility] CtrRBC rtnwo7479-76-51 18:48:00* Test Item Value Reference Range Interpretation Comme [facility] Red Blood Count (test code = 55174162) 4.51 [facility] GccDwipdtbsmk6251-41-91 18:48:00* Test Item Value Reference Range Interpretation Comme [facility] Hematocrit (test code = 91544247) 35.7 [facility] CtrMCV (mean corpuscular volume) determination 2024-12-10 18:48:00* Test Item Value Reference Range Interpretation Comme [facility] Mean Corpuscular Volume (shailesh t code = 45725-0) 79.2 [facility] CtrMean corpuscular hemoglobin (MCH) determination 2024-12-10 18:48:00* Test Item Value Reference Range Interpretation Comme [facility] Mean Corpuscular Hemoglobin (test code = 31749038) 25.1 [facility] (MCHC) zbnqzuvorbwsm2913-02-26 18:48:00* Test Item Value Reference Range Interpretation Comme [facility] Mean Corpuscular Hemoglobin Concent (test code = 77887173) 31.7 [facility] CtrRBC distribution width coefficient of variation 2024-12-10 18:48:00* Test Item Value Reference Range Interpretation Comme [facility] Red Cell Distribution Width (test code = 52237700) 16.9 [facility] CtrPlatelet epmdn9818-38-91 18:48:00* Test Item Value Reference Range Interpretation Comme [facility] Platelet Count (test code = 53636665) 395 [facility] CtrMean platelet stewuz4828-01-84 18:48:00* Test Item Value Reference Range Interpretation Comme nts Mean Platelet Volume (test c ode = 93814115) 8.8 [facility] CtrNeutrophils seg % tkk3296-65-90 18:48:00* Test Item Value Reference Range Interpretation Comme nts Neutrophils (%) (Auto) (test code = 67877-9) 53.2 [facility] CtrAbsolute immature granulocyte zelzg0356-88-20 18:48:00* Test Item Value Reference Range Interpretation Comme nts Absolute Immature Granulocyt e (auto (test code = 86096-2) 0.03 [facility] CtrBasophil % vckphn3707-53-81 18:48:00* Test Item Value Reference Range Interpretation Comme nts Basophils (%) (Auto) (test c ode = 81679-5) 0.4 [facility] CtrBlood band neutrophils count (number/volume) 2024-12-10 18:48:00* Test Item Value Reference Range Interpretation Comme nts Neutrophils # (Auto) (test c ode = 00862-2) 4.46 [facility] CtrAbsolute lymphocyte pbrae6791-73-52 18:48:00* Test Item Value Reference Range Interpretation Comme nts Lymphocytes # (Auto) (test c ode = 32268-7) 3.09 [facility] CtrAbsolute basophil zkjkh8236-34-47 18:48:00* Test Item Value Reference Range Interpretation Comme nts Basophils # (Auto) (test cod e = 19117836) 0.03 [facility] CtrAbsolute NRBC mbivv7616-57-25 18:48:00* Test Item Value Reference Range Interpretation Comme nts Nucleated Red Blood Cells # (test code = 870519581) 0 [facility] CtrEKG (SCANNED DOCUMENTS)2024-12-09 20:20:06Ordered by an unspecified provider.[facility] BranchTROPONIN I 2024-12-09 02:28:53* Test Item Value Reference Range Interpretation Comme nts TROPONIN I (test code = 3197095073) 0.003 ng/mL <=0.034 DARWIN (test code = [...] of biotin. Lab Interpretation (test code = 78356-4) Normal [facility] DXQ-SGQ8664-93-04 02:26:17* Test Item Value Reference Range Interpretation Comme nts NT-proBNP (test code = 22876-7) 47 pg/mL <=125 Lab Interpretation (test cod e = 23956-7) Normal [facility]woodCOMP. METABOLIC PANEL (08260)2024-12-09 02:17:14* Test Item Value Reference Range Interpretation Comme nts NA (test code = 0176194253) 139 mmol/L 135-145 K (test code = 2130063342) 3.2 mmol/L 3.5-5.0 L CL (test code = 8542458227) 106 mmol/L 98-108 CO2 TOTAL (test code = 1166861868) 23 mmol/L 23-31 AGAP (test code = 7989789907) 10 2-16 BUN (test code = 4850627300) 12 mg/dL 7-23 GLUCOSE (test code = 5580435092) 117 mg/dL 70-110 H CREATININE (test code = 2160-0) 0.63 mg/dL 0.50-1.04 TOTAL BILI (test code = 1151352620) 0.1 mg/dL 0.1-1.1 CALCIUM (test code = 1921989511) 9 mg/dL 8.6-10.6 T PROTEIN (test code = 2208479405) 6.4 g/dL 6.3-8.2 ALBUMIN (test code = 0352636968) 3.7 g/dL 3.5-5.0 ALK PHOS (test code = 6826864848) 63 U/L 34-122 ALTv (test code = 1742-6) 17 U/L 5-35 AST(SGOT) (test code = 3801833640) 16 U/L 13-40 eGFR (test code = 83314-9) 111.6 mL/min/1.73m2 CKD-EPI eGFR (2020). Assuming creatinine has been stable day-to-day for at least three months, the eGFR indicates Category G1 (>= 90 mL/min/1.73 m2) Lab Interpretation (test code = 60661-6) Abnormal [facility] WITH MOKB1233-73-67 02:00:12* Test Item Value Reference Range Interpretation [...] 32.4 g/dL 31.6-35.1 RDW-SD (test code = 39573-6) 51.7 fL 39.0-49.9 H RDW-CV (test code = 788-0) 17.3 % 12.0-15.5 H PLT (test code = 777-3) 377 166-358 H MPV (test code = 92427-5) 9.3 fL 9.5-12.9 L NRBC/100 WBC (test code = 3688045645) 0 0.0-10.0 NRBC x10^3 (test code = 3240983992) See_Comment [Automated Expert TAa ge] The system which generated this result transmitted reference range: 10*3/?L. The reference range was not used to interpret this result as normal/abnormal. GRAN MAT (NEUT) % (test code = 770-8) 53.2 % IMM GRAN % (test code = 2967559982) 0.4 % LYMPH % (test code = 736-9) 37.2 % MONO % (test code = 5905-5) 6 % EOS % (test code = 713-8) 2.7 % BASO % (test code = 706-2) 0.5 % GRAN MAT x10^3(ANC) (test code = 4703394125) 3.91 10*3/uL 1.88-7.09 IMM GRAN x10^3 (test code = 9974001960) 0.03 10*3/uL 0.00-0.06 LYMPH x10^3 (test code = 731-0) 2.74 10*3/uL 1.32-3.29 MONO x10^3 (test code = 742-7) 0.44 10*3/uL 0.33-0.92 EOS x10^3 (test code = 711-2) 0.2 10*3/uL 0.03-0.39 BASO x10^3 (test code = 704-7) 0.04 10*3/uL 0.01-0.07 Lab Interpretation (test code = 41935-0) Abnormal [facility]woodTroponin [id number] 04:09:19* Test Item Value Reference Range Interpretation Comme nts TROPONIN I (test code = 7159798150) 0.002 ng/mL <=0.034 DARWIN (test code = [...] of biotin. Lab Interpretation (test code = 05939-3) Normal [facility]woodXR Chest 1 pe1574-43-19 00:10:33CHEST ONE VIEW ORDERING PHYSICIAN: KLAUDIA NARVAEZ CLINICAL HISTORY:Chest pain ; TECHNIQUE: Single frontal radiograph of the chest was obtained. COMPARISON: Radiograph 10/31/2024. FINDINGS: Cardiac silhouette is within normal limits. No focal lung consolidation. Nopneumothorax or pleural effusion. Noacute osseous abnormality. [facility] BranchSerum or plasma glucose measurement (mass/volume)2024-11-15 12:58:00* Test Item Value Reference Range Interpretation Comme nts Random Glucose (test code = 2345-7) 109 [facility] CtrSerum or plasma urea nitrogen measurement (mass/volume)2024-11-15 12:58:00* Test Item Value Reference Range Interpretation Comme nts Blood Urea Nitrogen (test co de = 3094-0) 7 [facility] KkgEZQ0552-02-01 12:58:00* Test Item Value Reference Range Interpretation Comme [facility] Aspartate Amino Transf (AST/ SGOT) (test code = NBF5569) 13 [facility] CtrBilirubin ujniz2148-58-66 12:58:00* Test Item Value Reference Range Interpretation Comme [facility] Total Bilirubin (test code = JSF7739) < 0.2 [facility] CtrEstimated glomerular filtration rate (GFR) trkuppietwpyp3841-97-85 12:58:00* Test Item Value Reference Range Interpretation Comme [facility] Glomerular Filtration Rate C alc (test code = 483813338) > 60.00 [facility] CtrBUN/creatinine orfsu6696-18-68 12:58:00* Test Item Value Reference Range Interpretation Comme [facility] BUN/Creatinine Ratio (test c ode = 00248138) 14.9 [facility] PjwZL08304-20-31 12:58:00* Test Item Value Reference Range Interpretation Comme nts Carbon Dioxide Level (test c ode = 68556824) 19 [facility] CtrAnion gap kshoupmkrnb2711-89-42 12:58:00* Test Item Value Reference Range Interpretation Comme [facility] Anion Gap (test code = 77512074) 18.2 [facility] CtrCalcium cubbk2807-26-23 12:58:00* Test Item Value Reference Range Interpretation Comme nts Calcium Level (test code = 80880311) 9.3 [facility] CtrGlobulin omy3821-06-02 12:58:00* Test Item Value Reference Range Interpretation Comme nts Globulin (test code = 569512407) 3.0 [facility] CtrALT (SGPT) ser/ekue6709-60-39 12:58:00* Test Item Value Reference Range Interpretation Comme nts Alanine Aminotransferase (AL T/SGPT) (test code = 1742-6) 12 [facility] VmvOinzsx3215-40-89 12:58:00* Test Item Value Reference Range Interpretation Comme nts Lipase (test code = 023920519) 24 [facility] CtrALP ser/flpo6924-85-89 12:58:00* Test Item Value Reference Range Interpretation Comme nts Total Alkaline Phosphatase ( test code = 6768-6) 80 [facility] CtrAbsolute eosinophil cukzh1514-17-59 12:46:00* Test Item Value Reference Range Interpretation Comme nts Eosinophils # (Auto) (test c ode = DER8023) 0.23 [facility] CtrRBC yzorx2524-61-04 12:46:00* Test Item Value Reference Range Interpretation Comme [facility] Red Blood Count (test code = 48773918) 4.53 [facility] IvwCgfnybvrdl4115-11-40 12:46:00* Test Item Value Reference Range Interpretation Comme [facility] Hematocrit (test code = 54700130) 36.1 [facility] CtrMCV (mean corpuscular volume) determination 2024-11-15 12:46:00* Test Item Value Reference Range Interpretation Comme [facility] Mean Corpuscular Volume (shailesh t code = 47574-8) 79.7 [facility] CtrMean corpuscular hemoglobin (MCH) determination 2024-11-15 12:46:00* Test Item Value Reference Range Interpretation Comme [facility] Mean Corpuscular Hemoglobin (test code = 84393782) 25.2 [facility] CtrMean corpuscular hemoglobin concentration (MCHC) olkkvrmrgiccn1547-14-10 12:46:00* Test Item Value Reference Range Interpretation Comme [facility] Mean Corpuscular Hemoglobin Concent (test code = 12601958) 31.6 [facility] CtrRBC distribution width coefficient of variation 2024-11-15 12:46:00* Test Item Value Reference Range Interpretation Comme nts Red Cell Distribution Width (test code = 86995714) 17.6 [facility] CtrPlatelet wuxoa7967-88-54 12:46:00* Test Item Value Reference Range Interpretation Comme nts Platelet Count (test code = 44784352) 378 [facility] CtrMean platelet ngorlu7578-00-17 12:46:00* Test Item Value Reference Range Interpretation Comme nts Mean Platelet Volume (test c ode = 28021194) 8.6 [facility] CtrNeutrophils seg % bgf4125-76-18 12:46:00* Test Item Value Reference Range Interpretation Comme nts Neutrophils (%) (Auto) (test code = 35876-5) 62.5 [facility] CtrAbsolute immature granulocyte qpszt5406-09-65 12:46:00* Test Item Value Reference Range Interpretation Comme nts Absolute Immature Granulocyt e (auto (test code = 03778-4) 0.03 [facility] CtrBasophil % ytgsib5676-88-21 12:46:00* Test Item Value Reference Range Interpretation Comme nts Basophils (%) (Auto) (test c ode = 29594-4) 0.4 [facility] CtrBlood band neutrophils count (number/volume) 2024-11-15 12:46:00* Test Item Value Reference Range Interpretation Comme nts Neutrophils # (Auto) (test c ode = 67647-2) 5.18 [facility] CtrAbsolute lymphocyte lirjm4627-29-54 12:46:00* Test Item Value Reference Range Interpretation Comme nts Lymphocytes # (Auto) (test c ode = 88366-0) 2.32 [facility] CtrAbsolute basophil baach5804-75-79 12:46:00* Test Item Value Reference Range Interpretation Comme nts Basophils # (Auto) (test cod e = 05148805) 0.03 [facility] CtrAbsolute NRBC uybfw2472-12-41 12:46:00* Test Item Value Reference Range Interpretation Comme nts Nucleated Red Blood Cells # (test code = 349065570) 0 [facility] CtrRBC count ur vdoh3667-23-96 12:27:00* Test Item Value Reference Range Interpretation Comme nts Urine RBC (test code = 798-9) >100 [facility] CtrUrine examination for white blood cells (WBC) 2024-11-15 12:27:00* Test Item Value Reference Range Interpretation Comme nts Urine WBC (test code = 475014525) 0-2 [facility] CtrAutomated epithelial cells count in urine sediment (number/area)2024-11-15 12:27:00* Test Item Value Reference Range Interpretation Comme nts Urine Epithelial Cells (test code = 33611-0) 3-5 [facility] CtrBacteria detection in urine sediment by light zqwpjpsuyl4582-18-85 12:27:00* Test Item Value Reference Range Interpretation Comme nts Urine Bacteria (test code = 07357-4) None Seen [facility] CtrUrine casts detection by automated method 2024-11-15 12:27:00* Test Item Value Reference Range Interpretation Comme nts Urine Casts (test code = 40424-7) 0-2 [facility] CtrRBC count ur iyuj9879-79-71 12:27:00* Test Item Value Reference Range Interpretation Comme nts Urine RBC (test code = 798-9) >100 [facility] CtrUrine examination for white blood cells (WBC) 2024-11-15 12:27:00* Test Item Value Reference Range Interpretation Comme nts Urine WBC (test code = 654508296) 0-2 [facility] CtrAutomated epithelial cells count in urine sediment (number/area)2024-11-15 12:27:00* Test Item Value Reference Range Interpretation Comme nts Urine Epithelial Cells (test code = 86624-3) 3-5 [facility] CtrBacteria detection in urine sediment by light rnkbwwlxig9930-85-55 12:27:00* Test Item Value Reference Range Interpretation Comme nts Urine Bacteria (test code = 56826-5) None Seen [facility] CtrUrine casts detection by automated method 2024-11-15 12:27:00* Test Item Value Reference Range Interpretation Comme nts Urine Casts (test code = 09741-3) 0-2 [facility] CtrHCG ur UX5349-27-60 12:23:00* Test Item Value Reference Range Interpretation Comme nts Urine HCG, Qualitative (test code = 2106-3) NEGATIVE [facility] [place]6383-57-38 12:23:00* Test Item Value Reference Range Interpretation Comme nts Urine HCG, Qualitative (test code = 2106-3) NEGATIVE [facility] CtrColor of Urine by Asfw3784-02-20 12:22:00* Test Item Value Reference Range Interpretation Comme nts Urine Color (test code = 55176-1) Yellow [facility] CtrAppearance of Rclse6584-38-37 12:22:00* Test Item Value Reference Range Interpretation Comme nts Urine Appearance (test code = 5767-9) Clear [facility] CenterU[facility] glucose wuljoguof6205-55-60 12:22:00* Test Item Value Reference Range Interpretation Comme [facility] Urine Glucose (UA) (test cod e = 2349-9) Negative [facility] CtrBilirubin ra5202-31-22 12:22:00* Test Item Value Reference Range Interpretation Comme [facility] Urine Bilirubin (test code = 608720199) Negative [facility] CtrKetones tz3872-83-56 12:22:00* Test Item Value Reference Range Interpretation Comme nts Urine Ketones (test code = 86650254) Negative [facility] CenterSpecific gravity of Urine by Automated test strip 2024-11-15 12:22:00* Test Item Value Reference Range Interpretation Comme nts Urine Specific [place] (test code = 80323-6) 1.006 [facility] CtrUrine blood tllalaiqk7378-78-16 12:22:00* Test Item Value Reference Range Interpretation Comme nts Urine Blood (test code = 946053-3) 3+ (LARGE) [facility] CtrpH hc6860-41-67 12:22:00* Test Item Value Reference Range Interpretation Comme nts Urine pH (test code = 2756-5) 5.500 [facility] CtrProtein yr3902-03-33 12:22:00* Test Item Value Reference Range Interpretation Comme nts Urine Protein (test code = 06385240) Negative [facility] CenterUrobilinogen, urine, jr7481-08-58 12:22:00* Test Item Value Reference Range Interpretation Comme nts Urine Urobilinogen (test cod e = 085045204) 0.2 [facility] CtrUrine nitrate edwdmvzgx8859-61-13 12:22:00* Test Item Value Reference Range Interpretation Comme nts Urine Nitrate (test code = 06549-8) Negative [facility] CtrUrine leukocyte esterase ynrnmgktq4745-44-68 12:22:00* Test Item Value Reference Range Interpretation Comme nts Urine Leukocyte Esterase (te st code = 660130-2) Negative [facility] CtrColor of Urine by Lhmv7573-53-66 12:22:00* Test Item Value Reference Range Interpretation Comme nts Urine Color (test code = 78068-1) Yellow [facility] CtrAppearance of Xxpdb6580-69-89 12:22:00* Test Item Value Reference Range Interpretation Comme nts Urine Appearance (test code = 5767-9) Clear [facility] CenterU[facility] glucose vzjxctpgf5554-46-29 12:22:00* Test Item Value Reference Range Interpretation Comme nts Urine Glucose (UA) (test cod e = 2349-9) Negative [facility] CtrBilirubin qc9244-38-29 12:22:00* Test Item Value Reference Range Interpretation Comme nts Urine Bilirubin (test code = 585599777) Negative [facility] CtrKetones qc0526-92-44 12:22:00* Test Item Value Reference Range Interpretation Comme nts Urine Ketones (test code = 89348766) Negative [facility] CtrSpecific gravity of Urine by Automated test strip 2024-11-15 12:22:00* Test Item Value Reference Range Interpretation Comme nts Urine Specific [place] (test code = 49085-7) 1.006 [facility] CenterU[facility] blood hryqnshat1049-64-28 12:22:00* Test Item Value Reference Range Interpretation Comme nts Urine Blood (test code = 224797-5) 3+ (LARGE) [facility] CtrpH xu1368-02-14 12:22:00* Test Item Value Reference Range Interpretation Comme nts Urine pH (test code = 2756-5) 5.500 [facility] CtrProtein rm7350-41-20 12:22:00* Test Item Value Reference Range Interpretation Comme nts Urine Protein (test code = 10577321) Negative [facility] CtrUrobilinogen, urine, fw8109-79-26 12:22:00* Test Item Value Reference Range Interpretation Comme [facility] Urine Urobilinogen (test cod e = 491081319) 0.2 [facility] CtrUrine nitrate mngxowvnl1930-99-16 12:22:00* Test Item Value Reference Range Interpretation Comme [facility] Urine Nitrate (test code = 10495-4) Negative [facility] CtrUrine leukocyte esterase rrycggkte0215-10-16 12:22:00* Test Item Value Reference Range Interpretation Comme [facility] Urine Leukocyte Esterase (te st code = 443992-9) Negative [facility] CtrPOCT DSWZ5236-07-13 01:45:00* Test Item Value Reference Range Interpretation Comme nts POCT PREG (test code = 1605) Negative On board controls acceptable with C Line (test code = 3574) Yes POCT PREG LOT # (test code = 3575) [id number] POCT PREG TEST DATE ( test code = 3576) 2026-01-04 Lab Interpretation (test cod e = 64874-2) Normal [facility]wood[facility] pelvis w gnaoqzbx6613-69-57 05:06:35Exam: CT Abdomen and Pelvis with contrast, [...] MUSCULOSKELETAL:Soft tissues: Unr emarkable.Bones: No acute osseous abnormality.[facility] Comp. Metabolic Panel (72810)2024-11-11 03:05:56* Test Item Value Reference Range Interpretation Comme nts NA (test code = 1058384400) 137 mmol/L 135-145 K (test code = 2168360544) 3.2 mmol/L 3.5-5.0 L CL (test code = 3474128069) 107 mmol/L 98-108 CO2 TOTAL (test code = 5336459560) 23 mmol/L 23-31 AGAP (test code = 2366775478) 7 2-16 BUN (test code = 5385940286) 8 mg/dL 7-23 GLUCOSE (test code = 5547549053) 93 mg/dL 70-110 CREATININE (test code = 2160-0) 0.59 mg/dL 0.50-1.04 TOTAL BILI (test code = 9688591789) 0.2 mg/dL 0.1-1.1 CALCIUM (test code = 5113271256) 9 mg/dL 8.6-10.6 T PROTEIN (test code = 6293657378) 6.5 g/dL 6.3-8.2 ALBUMIN (test code = 0842549241) 3.8 g/dL 3.5-5.0 ALK PHOS (test code = 3312441052) 56 U/L 34-122 ALTv (test code = 1742-6) 14 U/L 5-35 AST(SGOT) (test code = 8566552498) 16 U/L 13-40 eGFR (test code = 91939-4) 113.4 mL/min/1.73m2 CKD-EPI eGFR (2020). Assuming creatinine has been stable day-to-day for at least three months, the eGFR indicates Category G1 (>= 90 mL/min/1.73 m2) Lab Interpretation (test code = 79356-6) [facility] 03:05:36* Test Item Value Reference Range Interpretation Comme nts LIPASE (test code = 3911942121) 108 U/L 0-220 Lab Interpretation (test cod e = 25878-0) Normal [facility]woodCb with Nyhp4826-20-30 02:49:12* Test Item Value Reference Range Interpretation [...] 32.5 g/dL 31.6-35.1 RDW-SD (test code = 19784-9) 52.4 fL 39.0-49.9 H RDW-CV (test code = 788-0) 17.9 % 12.0-15.5 H PLT (test code = 777-3) 337 166-358 MPV (test code = 81196-3) 9.6 fL 9.5-12.9 NRBC/100 WBC (test code = 4381915574) 0 0.0-10.0 NRBC x10^3 (test code = 4818526831) See_Comment [Automated messa ge] The system which generated this result transmitted reference range: 10*3/?L. The reference range was not used to interpret this result as normal/abnormal. GRAN MAT (NEUT) % (test code = 770-8) 49.2 % IMM GRAN % (test code = 9274406252) 0.1 % LYMPH % (test code = 736-9) 40.4 % MONO % (test code = 5905-5) 7 % EOS % (test code = 713-8) 2.8 % BASO % (test code = 706-2) 0.5 % GRAN MAT x10^3(ANC) (test code = 9783812280) 3.86 10*3/uL 1.88-7.09 IMM GRAN x10^3 (test code = 7479233968) 0.00-0.06 LYMPH x10^3 (test code = 731-0) 3.17 10*3/uL 1.32-3.29 MONO x10^3 (test code = 742-7) 0.55 10*3/uL 0.33-0.92 EOS x10^3 (test code = 711-2) 0.22 10*3/uL 0.03-0.39 BASO x10^3 (test code = 704-7) 0.04 10*3/uL 0.01-0.07 Lab Interpretation (test code = 24779-4) Abnormal [facility]woodPOCT LLXW3247-22-03 02:26:00* Test Item Value Reference Range Interpretation Comme nts POCT PREG (test code = 1605) Negative On board controls acceptable with C Line (test code = 3574) Yes POCT PREG LOT # (test code = 3575) [id number] POCT PREG TEST DATE ( test code = 3576) 01/28/2026 Lab Interpretation (test cod e = 40274-0) Normal [facility]woodCardiovascular Dtxyyiraxgfmzre3546-44-11 20:32:27Left Heart Cath/Coronary Angiography Charity Roca Date of Service: 11/03/2024 ?2:55 PM Attending Physician: Dane Jurado MDFellow: Dr. JonesReferring Physician: Dr. Sandra ProceduresPerformed:LHC/Coronary Angiogram: CPT 23064USR of mLAD: CPT 72913WTL of mRCA: CPT 07549 Indication/D iagnosis: ACS (USA/NSTEMI) Consent: Risks, benefits, alternatives and complications of the procedure discussed with the patient, who understood and agreed to proceed. Aseptic technique: Chlorprep Local Anesthesia: 1% lidocaine without epinephrine Sedation: Moderate Access site: right femoral arteryClosure Method: Angio-Seal Sterile dressing: yes Complications: none Procedures: After patient identification/verification, the patient was thereafter transferred to the collaborating supervising physician table. ?The access site was prepped and [...] with patient Dane Jurado MD 11/03/2024 2:55 PMUnCH[facility]antaaPTT (for use with Heparin Infusion)2024-11-03 14:39:09* Test Item Value Reference Range Interpretation Comme [facility] APTT Patient (test code = 3173-2) 43 26-36 H Lab Interpretation (test cod e = 49333-4) Abnormal [facility]for use with Heparin Infusion)2024-11-03 14:39:09* Test Item Value Reference Range Interpretation Comme [facility] APTT Patient (test code = 3173-2) 43 26-36 H Lab Interpretation (test cod e = 42203-8) Abnormal [place] [address] Lead ROUTINE [id number] 09:59:09* Test Item Value Reference Range [facility]ation [facility] Lab Interpretation (test cod e = 20230-0) Abnormal [place] [address] Lead ROUTINE [id number] 09:59:09* Test Item Value Reference Range Interpretation [facility] Lab Interpretation (test cod e = 30023-2) Abnormal [facility] KingwoodThyroid Stimulating Wtbormk5743-78-98 00:01:33 * Test Item Value Reference Range Interpretation Comme nts TSH (test code = 0784125692) 4.07 0.45-4.70 Biotin has been reported to cause a negative bias, interpret results relative to patient's use of biotin. Lab Interpretation (test code = 42600-8) Normal [facility]woodThyroid Stimulating Oglmvdq0131-68-07 00:01:33 * Test Item Value Reference Range Interpretation Comme nts TSH (test code = 9635984245) 4.07 0.45-4.70 Biotin has been reported to cause a negative bias, interpret results relative to patient's use of biotin. Lab Interpretation (test code = 43523-1) Normal [facility]woodProthrombin Time (PT) / [id number] 20:11:45 * Test Item Value Reference Range Interpretation Comme [facility] PROTIME PATIENT (test code = 5964-2) 11.3 10.1-12.6 INR (test code = 6301-6) 1 <=4.5 Normal INR <1.1; Warfarin Therapeutic range 2.0 to 3.0 or 2.5 to 3.5, depending upon the indications. Lab Interpretation (test code = 67264-5) Normal [facility]woodaPTT2025-04-27 20:11:45* Test Item Value Reference Range Interpretation Comme [facility] APTT Patient (test code = 3173-2) 25 26-36 L DARWIN (test code = DARWIN) The [facility] patient population mean normal value for aPTT is 30 seconds. Lab Interpretation (test code = 94733-2) Abnormal [facility] KingwoodProthrombin Time (PT) / IMB4919-27-71 20:11:45 * Test Item Value Reference Range Interpretation Comme [facility] PROTIME PATIENT (test code = 5964-2) 11.3 10.1-12.6 INR (test code = 6301-6) 1 <=4.5 Normal INR <1.1; Warfarin Therapeutic range 2.0 to 3.0 or 2.5 to 3.5, depending upon the indications. Lab Interpretation (test code = 95044-6) Normal [facility]woodaPTT2025-04-27 20:11:45* Test Item Value Reference Range Interpretation Comme nts APTT Patient (test code = 3173-2) 25 26-36 L DARWIN (test code = DARWIN) The [facility] patient population mean normal value for aPTT is 30 seconds. Lab Interpretation (test code = 06550-9) Abnormal [facility] KingwoodProcalcitonin2025-04-27 17:14:31* Test Item Value Reference Range Interpretation Comme nts Procalcitonin (test code = 3219658917) 0.02 ng/mL <=0.07 DARWIN (test code = [...] lung abscess/empyema. For further information please refer to:[email or web address] Lab Interpretation (test code = 37989-2) Normal [facility] KingwoodProcalcitonin2025-04-27 17:14:31* Test Item Value Reference Range Interpretation Comme nts Procalcitonin (test code = 3032182290) 0.02 ng/mL <=0.07 DARWIN (test code = [...] lung abscess/empyema. For further information please refer to:[email or web address] Lab Interpretation (test code = 58683-4) Normal [facility]woodTransthoracic echo (TTE) Kfqohqg1701-36-28 14:54:14* Test Item Value Reference Range Interpretation Comme nts Height (test code = 2742232739) 62 in Weight (test code = 7909660514) 240 lbs Systolic BP (test code = 6659378080) 156 mmHg Diastolic BP (test code = 6050101778) 99 mmHg Heart Rate (test code = 7806800280) 76 bpm BSA (test code = 2098062884) 2.07 m2 LVOT diameter (test code = 5732317346) 1.86 cm LVOT area (test code = 6019456148) 2.7 cm2 Ao root diam (test code = 0338403560) 3.1 cm Aortic root (test code = 6982168904) 3.1 cm Ao root annulus (test code = 5258019614) 3.1 cm LA size (test code = 8216382543) 3.7 cm LVIDD (test code = 5353761575) 3.8 cm Left Ventricular End Diastolic Volume by Teichholz Method (test code = 4611533) 63 mL IVS (test code = 4576759054) 1.35 cm Interventricular Septum Diastolic Thickness by 2D (test code = 3253936) 1.35 cm LVPWD (test code = 0548191229) 1.36 cm PW (test code = 1119381408) 1.36 cm 0.6-1.1 EF(Teich) (test code = 1628292086) 53 % LVIDS (test code = 6157961526) 2.8 cm Left Ventricular End Systolic Volume by Teichholz Method (test code = 4345263) 29.6 mL FS (test code = 5076750388) 27 % EF - 2D (test code = 46567356) 53 % LAV(MOD-sp4) (test code = 2286159292) 53.8 mL E wave decelartion time (test code = 2858346939) 0.25 s MV stenosis pressure 1/2 time (test code = 4138172601) 73.5 ms MV Peak A Edilson (test code = 2248422225) 73.2 cm/s MV Peak E Edilson (test code = 3851246153) 64.2 cm/s E/A ratio (test code = 9150136231) 0.88 ratio MV Prop V (test code = 1184609644) 62.4 cm/s MV E/e' septal (test code = 4706457233) 12.8 cm/s Tapse (test code = 7733909102) 1.58 cm LVOT stroke volume (test code = 8341614056) 60 cm3 LVOT peak edilson (test code = 3870282502) 110.2 cm/s LVOT mn grad (test code = 0739500598) 2.5 mmHg AV LVOT peak gradient (test code = 7978866590) 4.9 mmHg LVOT peak VTI (test code = 3338532077) 22.1 cm LV V1 mean (test code = 1398067510) 75.6 cm/s Aortic valve mean velocity (test code = 3481398884) 97 cm/s Ao peak edilson (test code = 1169170660) 138 cm/s Ao VTI (test code = 6937209068) 28 cm AV area by cont VTI (test code = 2139599820) 2.1 cm2 AV area peak edilson (test code = 7417575682) 2.2 cm2 Ao max PG (test code = 1685899425) 7.6 mm[Hg] AV peak gradient (test code = 6167992327) 7.6 mmHg AV valve area (test code = 8868151578) 2.14 cm2 AV mean gradient (test code = 7646011278) 4 mmHg Radiology Study observation (narrative) (test code = 70360-7) DARWIN (test code = DARWIN) ?Left?Ventricle: Left [...] mL of Optison ultrasound enhancing agent used. [facility]woodTransthoracic echo (TTE) Azwasjj3020-20-92 14:54:14* Test Item Value Reference Range Interpretation Comme nts Height (test code = 1923787583) 62 in Weight (test code = 2278193918) 240 lbs Systolic BP (test code = 4330098693) 156 mmHg Diastolic BP (test code = 6101188321) 99 mmHg Heart Rate (test code = 8799802415) 76 bpm BSA (test code = 0452933906) 2.07 m2 LVOT diameter (test code = 0183973186) 1.86 cm LVOT area (test code = 7171472240) 2.7 cm2 Ao root diam (test code = 5337256313) 3.1 cm Aortic root (test code = 6937289045) 3.1 cm Ao root annulus (test code = 6686019837) 3.1 cm LA size (test code = 5095806780) 3.7 cm LVIDD (test code = 1358384334) 3.8 cm Left Ventricular End Diastolic Volume by Teichholz Method (test code = 6425542) 63 mL IVS (test code = 8909996686) 1.35 cm Interventricular Septum Diastolic Thickness by 2D (test code = 4347813) 1.35 cm LVPWD (test code = 9510843070) 1.36 cm PW (test code = 5606290668) 1.36 cm 0.6-1.1 EF(Teich) (test code = 5981670721) 53 % LVIDS (test code = 0153298491) 2.8 cm Left Ventricular End Systolic Volume by Teichholz Method (test code = 5665992) 29.6 mL FS (test code = 3926768629) 27 % EF - 2D (test code = 73541623) 53 % LAV(MOD-sp4) (test code = 3759606825) 53.8 mL E wave decelartion time (test code = 1999036048) 0.25 s MV stenosis pressure 1/2 time (test code = 9217273413) 73.5 ms MV Peak A Edilson (test code = 2764734068) 73.2 cm/s MV Peak E Edilson (test code = 7016352723) 64.2 cm/s E/A ratio (test code = 7796894192) 0.88 ratio MV Prop V (test code = 5443830953) 62.4 cm/s MV E/e' septal (test code = 5807698608) 12.8 cm/s Tapse (test code = 0032181321) 1.58 cm LVOT stroke volume (test code = 4843738205) 60 cm3 LVOT peak edilson (test code = 2262319312) 110.2 cm/s LVOT mn grad (test code = 9570335340) 2.5 mmHg AV LVOT peak gradient (test code = 5355526402) 4.9 mmHg LVOT peak VTI (test code = 7531217005) 22.1 cm LV V1 mean (test code = 8761981892) 75.6 cm/s Aortic valve mean velocity (test code = 2034390277) 97 cm/s Ao peak edilson (test code = 6040113123) 138 cm/s Ao VTI (test code = 9531889393) 28 cm AV area by cont VTI (test code = 1207239992) 2.1 cm2 AV area peak edilson (test code = 5337552838) 2.2 cm2 Ao max PG (test code = 8145053541) 7.6 mm[Hg] AV peak gradient (test code = 8775168817) 7.6 mmHg AV valve area (test code = 1186763587) 2.14 cm2 AV mean gradient (test code = 4058764150) 4 mmHg Radiology Study observation (narrative) (test code = 05387-1) DARWIN (test code = DARWIN) ?Left?Ventricle: Left [...] mL of Optison ultrasound enhancing agent used. [facility]woodN-Terminal Mzl-Cpm9269-13-27 14:40:37* Test Item Value Reference Range Interpretation Comme nts NT-proBNP (test code = 13049-6) <=125 Lab Interpretation (test cod e = 81155-1) Normal [facility]woodN-Terminal Pdj-Vrs6377-59-27 14:40:37* Test Item Value Reference Range Interpretation Comme nts NT-proBNP (test code = 95007-8) <=125 Lab Interpretation (test cod e = 34089-7) Normal [facility] KingwoodGlycosylated Hemoglobin (A1C)2024-11-01 14:39:42* Test Item Value Reference Range Interpretation Comme nts HGB A1C (test code = 4548-4) 5.6 % 4.0-5.7 DARWIN (test code = DARWIN) Reference RangesNormal: <5.7%Prediabetes: 5.7 - 6.4%Diabetes: > 6.5% Lab Interpretation (test code = 12816-1) Normal [facility] KingwoodGlycosylated Hemoglobin (A1C)2024-11-01 14:39:42* Test Item Value Reference Range Interpretation Comme nts HGB A1C (test code = 4548-4) 5.6 % 4.0-5.7 DARWIN (test code = DARWIN) Reference RangesNormal: <5.7%Prediabetes: 5.7 - 6.4%Diabetes: > 6.5% Lab Interpretation (test code = 87366-7) Normal [facility] [id number] 14:28:10* Test Item Value Reference Range Interpretation Comme nts TROPONIN I (test code = 9835416290) 0.003 ng/mL <=0.034 DARWIN (test code = [...] of biotin. Lab Interpretation (test code = 63949-3) Normal [facility] E5716-14-04 14:28:10* Test Item Value Reference Range Interpretation Comme nts TROPONIN I (test code = 5389191316) 0.003 ng/mL <=0.034 DARWIN (test code = [...] of biotin. Lab Interpretation (test code = 73235-8) Normal [facility] KingwoodLipid Panel (75719)(Total Cholesterol, Triglycerides, HDL)2024-11-01 14:15:31* Test Item Value Reference Range Interpretation Comme nts CHOL (test code = 0375902717) 185 mg/dL 120-200 HDL (test code = 1687281881) 36 mg/dL >=50 L HDLC RATIO (test code = 5225600092) 5.1 <=4.5 H TRIG (test code = 3775688533) 219 mg/dL 30-170 H LDL CHOL (test code = 51900-0) 105 mg/dL <=160 VLDL (test code = 1163230136) 44 mg/dL 5-60 Lab Interpretation (test cod e = 40300-0) Abnormal [facility]woodLipid [facility] (41513)(Total Cholesterol, Triglycerides, HDL)2024-11-01 14:15:31* Test Item Value Reference Range Interpretation Comme nts CHOL (test code = 1468475832) 185 mg/dL 120-200 HDL (test code = 8087446964) 36 mg/dL >=50 L HDLC RATIO (test code = 7537500575) 5.1 <=4.5 H TRIG (test code = 3307786982) 219 mg/dL 30-170 H LDL CHOL (test code = 69339-2) 105 mg/dL <=160 VLDL (test code = 4913553291) 44 mg/dL 5-60 Lab Interpretation (test cod e = 58744-4) [id number] 08:18:33* Test Item Value Reference Range Interpretation Comme nts TROPONIN I (test code = 5461289116) 0.002 ng/mL <=0.034 DARWIN (test code = [...] of biotin. Lab Interpretation (test code = 70622-3) Normal [facility] R2951-24-72 08:18:33* Test Item Value Reference Range Interpretation Comme nts TROPONIN I (test code = 0039233628) 0.002 ng/mL <=0.034 DARWIN (test code = [...] of biotin. Lab Interpretation (test code = 78706-6) Normal [facility] Metabolic Panel (NA, K, CL, CO2, GLUCOSE, BUN, CREATININE, CA)2024-11-01 08:06:31* Test Item Value Reference Range Interpretation Comme nts NA (test code = 9865430203) 138 mmol/L 135-145 K (test code = 2028777973) 3.6 mmol/L 3.5-5.0 CL (test code = 8482510750) 105 mmol/L 98-108 CO2 TOTAL (test code = 8309055969) 25 mmol/L 23-31 AGAP (test code = 0974034520) 8 2-16 BUN (test code = 5451317500) 9 mg/dL 7-23 GLUCOSE (test code = 9097202013) 113 mg/dL 70-110 H CREATININE (test code = 2160-0) 0.63 mg/dL 0.50-1.04 CALCIUM (test code = 0982435369) 9.1 mg/dL 8.6-10.6 eGFR (test code = 92595-6) 111.6 mL/min/1.73m2 CKD-EPI eGFR (2020). Assuming creatinine has been stable day-to-day for at least three months, the eGFR indicates Category G1 (>= 90 mL/min/1.73 m2) Lab Interpretation (test code = 93186-6) Abnormal [facility] Metabolic Panel (NA, K, CL, CO2, GLUCOSE, BUN, CREATININE, CA)2024-11-01 08:06:31* Test Item Value Reference Range Interpretation Comme nts NA (test code = 5845349488) 138 mmol/L 135-145 K (test code = 4233601729) 3.6 mmol/L 3.5-5.0 CL (test code = 4069146086) 105 mmol/L 98-108 CO2 TOTAL (test code = 0488362176) 25 mmol/L 23-31 AGAP (test code = 5156460555) 8 2-16 BUN (test code = 6584796505) 9 mg/dL 7-23 GLUCOSE (test code = 6179299244) 113 mg/dL 70-110 H CREATININE (test code = 2160-0) 0.63 mg/dL 0.50-1.04 CALCIUM (test code = 2457169139) 9.1 mg/dL 8.6-10.6 eGFR (test code = 57853-1) 111.6 mL/min/1.73m2 CKD-EPI eGFR (2020). Assuming creatinine has been stable day-to-day for at least three months, the eGFR indicates Category G1 (>= 90 mL/min/1.73 m2) Lab Interpretation (test code = 35883-7) Abnormal [facility]woodCb with Acvc1719-30-45 07:51:49* Test Item Value Reference Range Interpretation [...] 32.6 g/dL 31.6-35.1 RDW-SD (test code = 59267-5) 53.2 fL 39.0-49.9 H RDW-CV (test code = 788-0) 18.6 % 12.0-15.5 H PLT (test code = 777-3) 361 166-358 H MPV (test code = 38541-0) 9.5 fL 9.5-12.9 NRBC/100 WBC (test code = 0048960812) 0 0.0-10.0 NRBC x10^3 (test code = 6332209350) See_Comment [Automated messa ge] The system which generated this result transmitted reference range: 10*3/?L. The reference range was not used to interpret this result as normal/abnormal. GRAN MAT (NEUT) % (test code = 770-8) 63.7 % IMM GRAN % (test code = 9873599042) 0.4 % LYMPH % (test code = 736-9) 26.9 % MONO % (test code = 5905-5) 7.1 % EOS % (test code = 713-8) 1.5 % BASO % (test code = 706-2) 0.4 % GRAN MAT x10^3(ANC) (test code = 1535947692) 7.23 10*3/uL 1.88-7.09 H IMM GRAN x10^3 (test code = 0520237957) 0.05 10*3/uL 0.00-0.06 LYMPH x10^3 (test code = 731-0) 3.05 10*3/uL 1.32-3.29 MONO x10^3 (test code = 742-7) 0.8 10*3/uL 0.33-0.92 EOS x10^3 (test code = 711-2) 0.17 10*3/uL 0.03-0.39 BASO x10^3 (test code = 704-7) 0.04 10*3/uL 0.01-0.07 Lab Interpretation (test code = 44464-8) Abnormal [facility] with Lndg7215-48-94 07:51:49* Test Item Value Reference Range Interpretation [...] 32.6 g/dL 31.6-35.1 RDW-SD (test code = 64382-3) 53.2 fL 39.0-49.9 H RDW-CV (test code = 788-0) 18.6 % 12.0-15.5 H PLT (test code = 777-3) 361 166-358 H MPV (test code = 00555-9) 9.5 fL 9.5-12.9 NRBC/100 WBC (test code = 9021893945) 0 0.0-10.0 NRBC x10^3 (test code = 5000900971) See_Comment [Automated messa ge] The system which generated this result transmitted reference range: 10*3/?L. The reference range was not used to interpret this result as normal/abnormal. GRAN MAT (NEUT) % (test code = 770-8) 63.7 % IMM GRAN % (test code = 0928045316) 0.4 % LYMPH % (test code = 736-9) 26.9 % MONO % (test code = 5905-5) 7.1 % EOS % (test code = 713-8) 1.5 % BASO % (test code = 706-2) 0.4 % GRAN MAT x10^3(ANC) (test code = 8961455143) 7.23 10*3/uL 1.88-7.09 H IMM GRAN x10^3 (test code = 3722894404) 0.05 10*3/uL 0.00-0.06 LYMPH x10^3 (test code = 731-0) 3.05 10*3/uL 1.32-3.29 MONO x10^3 (test code = 742-7) 0.8 10*3/uL 0.33-0.92 EOS x10^3 (test code = 711-2) 0.17 10*3/uL 0.03-0.39 BASO x10^3 (test code = 704-7) 0.04 10*3/uL 0.01-0.07 Lab Interpretation (test code = 05910-9) Abnormal [facility] 1 hm0225-16-27 03:52:49History: chest pain . Exam: XR CHEST 1 VW Date: 10/31/2024 10:00 PM Ordering provider: BOB GARCIA Comparison: 10/12/2024. Findings: Frontal view of the chest is obtained. The cardiac silhouette is normal in size. There are mild left perihilar andbibasilar opacities, which are similar on the prior. No evidence of pleuraleffusion, pneumothorax, or overt CHF.[facility] 1 ha0605-48-28 03:52:49History: chest pain . Exam: XR CHEST 1 VW Date: 10/31/2024 10:00 PM Ordering provider: BOB GARCIA Comparison: 10/12/2024. Findings: Frontal view of the chest is obtained. The cardiac silhouette is n ormal in size. There are mild left perihilar andbibasilar opacities, which are similar on the prior. No evidence of pleuraleffusion, pneumothorax, or overt CHF.[facility]woodCT Abdomen pelvis w bvenpbbm9971-33-31 04:15:32CT ABDOMEN PELVIS W CONTRAST 10/23/2024 10:24 [...] changes of the spine. No concerning softtissue abnormality.[facility]. Metabolic Panel (70349)2024-10-24 02:17:07* Test Item Value Reference Range Interpretation Comme nts NA (test code = 1429007766) 136 mmol/L 135-145 K (test code = 9877553227) 3.7 mmol/L 3.5-5.0 CL (test code = 4938607327) 105 mmol/L 98-108 CO2 TOTAL (test code = 2109396842) 22 mmol/L 23-31 L AGAP (test code = 9541874629) 9 2-16 BUN (test code = 9452054546) 13 mg/dL 7-23 GLUCOSE (test code = 4104930393) 106 mg/dL 70-110 CREATININE (test code = 2160-0) 0.57 mg/dL 0.50-1.04 TOTAL BILI (test code = 1399557751) 0.4 mg/dL 0.1-1.1 CALCIUM (test code = 1312549977) 9.4 mg/dL 8.6-10.6 T PROTEIN (test code = 2721281375) 7.1 g/dL 6.3-8.2 ALBUMIN (test code = 2773628039) 4 g/dL 3.5-5.0 ALK PHOS (test code = 0606242136) 64 U/L 34-122 ALTv (test code = 1742-6) 15 U/L 5-35 AST(SGOT) (test code = 9187179660) 18 U/L 13-40 eGFR (test code = 95655-1) 114.4 mL/min/1.73m2 CKD-EPI eGFR (2020). Assuming creatinine has been stable day-to-day for at least three months, the eGFR indicates Category G1 (>= 90 mL/min/1.73 m2) Lab Interpretation (test code = 38528-4) Abnormal [facility]woodLipase2025-04-19 02:16:47* Test Item Value Reference Range Interpretation Comme nts LIPASE (test code = 5789850969) 110 U/L 0-220 Lab Interpretation (test cod e = 18452-1) Normal [facility]woodCb with Pfxt8105-06-01 02:13:50* Test Item Value Reference Range Interpretation [...] 32.9 g/dL 31.6-35.1 RDW-SD (test code = 36957-9) 52.2 fL 39.0-49.9 H RDW-CV (test code = 788-0) 17.9 % 12.0-15.5 H PLT (test code = 777-3) 337 166-358 MPV (test code = 37596-9) 9.6 fL 9.5-12.9 IPF % (test code = 3108218988) 1.6 % 1.3-7.7 Platelet count measured by fluorescence method. NRBC/100 WBC (test code = 2098008086) 0 0.0-10.0 NRBC x10^3 (test code = 0545512396) See_Comment [Automated Expert TAa ge] The system which generated this result transmitted reference range: 10*3/?L. The reference range was not used to interpret this result as normal/abnormal. GRAN MAT (NEUT) % (test code = 770-8) 62.2 % IMM GRAN % (test code = 2263523452) 0.3 % LYMPH % (test code = 736-9) 29.3 % MONO % (test code = 5905-5) 6.2 % EOS % (test code = 713-8) 1.6 % BASO % (test code = 706-2) 0.4 % GRAN MAT x10^3(ANC) (test code = 0224702640) 6.92 10*3/uL 1.88-7.09 IMM GRAN x10^3 (test code = 9002814294) 0.03 10*3/uL 0.00-0.06 LYMPH x10^3 (test code = 731-0) 3.26 10*3/uL 1.32-3.29 MONO x10^3 (test code = 742-7) 0.69 10*3/uL 0.33-0.92 EOS x10^3 (test code = 711-2) 0.18 10*3/uL 0.03-0.39 BASO x10^3 (test code = 704-7) 0.05 10*3/uL 0.01-0.07 Lab Interpretation (test code = 95013-5) [facility] thyroid stimulating hormone (TSH) [id number] 10:14:00* Test Item Value Reference Range Interpretation Comme nts Thyroid Stimulating Hormone (TSH) (test code = 3016-3) 2.58 Falls [facility] [id number] 10:14:00* Test Item Value Reference Range Interpretation Comme nts Free Thyroxine (test code = 4217205) 1.18 [facility] CtrSerum or plasma creatine kinase MB (CK-MB) measurement by immunoassay (mass/volume)2024-10-14 10:14:00* Test Item Value Reference Range Interpretation Comme nts Creatine Kinase MB (test cod e = 52655-4) < 1.0 [facility] CtrSerum or plasma cardiac troponin I panel by high sensitivity wtjfrn6019-13-09 10:14:00* Test Item Value Reference Range Interpretation Comme nts Troponin T High Sensitivity (test code = 91793-5) 8.2 [facility] CtrSerum or plasma thyroid stimulating hormone (TSH) zewensxvldx7036-36-21 10:14:00* Test Item Value Reference Range Interpretation Comme nts Thyroid Stimulating Hormone (TSH) (test code = 3016-3) 2.58 [facility] [id number] 10:14:00* Test Item Value Reference Range Interpretation Comme nts Free Thyroxine (test code = 4572096) 1.18 [facility] CtrSerum or plasma creatine kinase MB (CK-MB) measurement by immunoassay (mass/volume)2024-10-14 10:14:00* Test Item Value Reference Range Interpretation Comme nts Creatine Kinase MB (test cod e = 91304-8) < 1.0 [facility] CtrSerum or plasma cardiac troponin I panel by high sensitivity gbrclw7467-62-83 10:14:00* Test Item Value Reference Range Interpretation Comme nts Troponin T High Sensitivity (test code = 71023-5) 8.2 [facility] CtrSerum or plasma thyroid stimulating hormone (TSH) jclhiqwfvkk0851-57-91 10:14:00* Test Item Value Reference Range Interpretation Comme nts Thyroid Stimulating Hormone (TSH) (test code = 3016-3) 2.58 [facility] O50406-33-91 10:14:00* Test Item Value Reference Range Interpretation Comme nts Free Thyroxine (test code = 9791829) 1.18 [facility] VzsFeporpplcq7148-67-07 10:09:00* Test Item Value Reference Range Interpretation Comme nts Phosphorus Level (test code = TMH8000) 3.3 [facility] CtrCreatine kinase ldevuydwtkp1027-65-68 10:09:00* Test Item Value Reference Range Interpretation Comme nts Creatine Kinase (test code = 763984335) 32 [facility] IhfMutnlqxnhy5731-08-94 10:09:00* Test Item Value Reference Range Interpretation Comme nts Phosphorus Level (test code = HGN6903) 3.3 [facility] CtrCreatine kinase jdbqvytnujr7186-81-78 10:09:00* Test Item Value Reference Range Interpretation Comme nts Creatine Kinase (test code = 074804102) 32 [facility] DnbHamcdgounq8039-15-58 10:09:00* Test Item Value Reference Range Interpretation Comme nts Phosphorus Level (test code = WOI4422) 3.3 [facility] CtrChloride dciomzzwaah3305-96-09 05:44:00* Test Item Value Reference Range Interpretation Comme nts Chloride Level (test code = DZP0668) 105 [facility] CtrSerum or plasma urea nitrogen measurement (mass/volume)2024-10-14 05:44:00* Test Item Value Reference Range Interpretation Comme nts Blood Urea Nitrogen (test co de = 3094-0) 8 [facility] CtrOsmolality kjm0160-51-45 05:44:00* Test Item Value Reference Range Interpretation Comme nts Serum Osmolality (test code = ZBM3644) 274 [facility] CtrCreatinine nvmij4860-13-49 05:44:00* Test Item Value Reference Range Interpretation Comme nts Creatinine (test code = 968718008) 0.43 [facility] CtrEstimated glomerular filtration rate (GFR) vuzyccsdvtfzb1088-87-02 05:44:00* Test Item Value Reference Range Interpretation Comme [facility] Glomerular Filtration Rate C alc (test code = 702110712) > 60.00 [facility] CtrBUN/creatinine ppmrw3232-40-35 05:44:00* Test Item Value Reference Range Interpretation Comme [facility] BUN/Creatinine Ratio (test c ode = 74733598) 18.6 [facility] CtrBody fluid potassium xtcxdmprtvo4776-55-46 05:44:00* Test Item Value Reference Range Interpretation Comme nts Potassium Level (test code = 2821-7) 3.8 [facility] PadTP49110-46-89 05:44:00* Test Item Value Reference Range Interpretation Comme nts Carbon Dioxide Level (test c ode = 71202115) 24 [facility] CtrAnion gap mfmoptxwxpg5610-28-21 05:44:00* Test Item Value Reference Range Interpretation Comme nts Anion Gap (test code = 96516152) 12.8 [facility] CtrCalcium bscim5429-01-38 05:44:00* Test Item Value Reference Range Interpretation Comme nts Calcium Level (test code = 67068914) 8.7 [facility] GynSxxwcmaslx5902-77-12 05:25:00* Test Item Value Reference Range Interpretation Comme nts Hematocrit (test code = 24500757) 32.9 [facility] CtrMCV (mean corpuscular volume) determination 2024-10-14 05:25:00* Test Item Value Reference Range Interpretation Comme [facility] Mean Corpuscular Volume (shailesh t code = 64552-5) 79.9 [facility] CtrMean corpuscular hemoglobin (MCH) determination 2024-10-14 05:25:00* Test Item Value Reference Range Interpretation Comme [facility] Mean Corpuscular Hemoglobin (test code = 79748107) 25.2 [facility] CtrMean corpuscular hemoglobin concentration (MCHC) pnngfdlnhawxh1613-82-49 05:25:00* Test Item Value Reference Range Interpretation Comme [facility] Mean Corpuscular Hemoglobin Concent (test code = 65363986) 31.6 [facility] CtrRBC distribution width coefficient of variation 2024-10-14 05:25:00* Test Item Value Reference Range Interpretation Comme [facility] Red Cell Distribution Width (test code = 43669134) 18.2 [facility] CtrPlatelet ornkm8367-37-61 05:25:00* Test Item Value Reference Range Interpretation Comme [facility] Platelet Count (test code = 42909814) 299 [facility] CtrMean platelet fglhco8757-52-40 05:25:00* Test Item Value Reference Range Interpretation Comme [facility] Mean Platelet Volume (test c ode = 40507579) 8.9 [facility] CtrNeutrophils seg % lnl0977-98-65 05:25:00* Test Item Value Reference Range Interpretation Comme [facility] Neutrophils (%) (Auto) (test code = 63433-9) 52.7 [facility] CtrAbsolute immature granulocyte ziulg1702-45-56 05:25:00* Test Item Value Reference Range Interpretation Comme nts Absolute Immature Granulocyt e (auto (test code = 05540-4) 0.03 [facility] CtrBasophil % balkhs0557-16-94 05:25:00* Test Item Value Reference Range Interpretation Comme nts Basophils (%) (Auto) (test c ode = 78787-7) 0.4 [facility] CtrBlood band neutrophils count (number/volume) 2024-10-14 05:25:00* Test Item Value Reference Range Interpretation Comme nts Neutrophils # (Auto) (test c ode = 29519-2) 3.96 [facility] CtrAbsolute lymphocyte pjgrt7010-31-44 05:25:00* Test Item Value Reference Range Interpretation Comme nts Lymphocytes # (Auto) (test c ode = 70915-6) 2.63 [facility] CtrAbsolute basophil titaj4905-41-89 05:25:00* Test Item Value Reference Range Interpretation Comme nts Basophils # (Auto) (test cod e = 61230039) 0.03 [facility] CtrAbsolute NRBC wrebm5714-90-01 05:25:00* Test Item Value Reference Range Interpretation Comme nts Nucleated Red Blood Cells # (test code = 946605209) 0 [facility] CtrAbsolute eosinophil qplep4575-05-39 05:25:00* Test Item Value Reference Range Interpretation Comme nts Eosinophils # (Auto) (test c ode = ARN3337) 0.26 [facility] CtrRBC brxla9955-08-25 05:25:00* Test Item Value Reference Range Interpretation Comme nts Red Blood Count (test code = 28801567) 4.12 [facility] OnaGtvikktpc7685-41-83 01:01:00* Test Item Value Reference Range Interpretation Comme nts Magnesium Level (test code = 91106488) 1.8 [facility] CtrTriglycerides txisi4516-49-13 01:01:00* Test Item Value Reference Range Interpretation Comme nts Triglycerides Level (test co de = NAV3681) 193 [facility] LrxTPI2000-66-12 01:01:00* Test Item Value Reference Range Interpretation Comme nts HDL Cholesterol (test code = 12592088) 41 [facility] CtrLDL cholesterol, liggop9910-05-27 01:01:00* Test Item Value Reference Range Interpretation Comme nts LDL Cholesterol (test code = 914421087) 102 [facility] CtrCholesterol/HDL rvlhu1330-12-13 01:01:00* Test Item Value Reference Range Interpretation Comme nts Coronary Heart Disease Risk Ratio (test code = 124427080) 4.170 [facility] HktOyojvvqit5938-50-22 01:01:00* Test Item Value Reference Range Interpretation Comme nts Magnesium Level (test code = 16947329) 1.8 [facility] CtrTriglycerides kcnia9039-65-36 01:01:00* Test Item Value Reference Range Interpretation Comme nts Triglycerides Level (test co de = EDM1796) 193 [facility] CkvTUY1379-01-85 01:01:00* Test Item Value Reference Range Interpretation Comme nts HDL Cholesterol (test code = 06554836) 41 [facility] CtrLDL cholesterol, oksavr0230-15-30 01:01:00* Test Item Value Reference Range Interpretation Comme nts LDL Cholesterol (test code = 334544078) 102 [facility] CtrCholesterol/HDL svuqa5447-57-42 01:01:00* Test Item Value Reference Range Interpretation Comme nts Coronary Heart Disease Risk Ratio (test code = 824285169) 4.170 [facility] XweShuuyqiik6773-16-10 01:01:00* Test Item Value Reference Range Interpretation Comme nts Magnesium Level (test code = 46553793) 1.8 [facility] CtrTriglycerides mseyj3175-99-37 01:01:00* Test Item Value Reference Range Interpretation Comme nts Triglycerides Level (test co de = SUM0814) 193 [facility]* Test Item Value Reference Range Interpretation Comme nts HDL Cholesterol (test code = 38319608) 41 [facility] CtrLDL cholesterol, ockwpy0031-64-23 01:01:00* Test Item Value Reference Range Interpretation Comme nts LDL Cholesterol (test code = 029176791) 102 [facility] CtrCholesterol/HDL ffhhl5535-33-79 01:01:00* Test Item Value Reference Range Interpretation Comme nts Coronary Heart Disease Risk Ratio (test code = 547075655) 4.170 [facility] CtrHemoglobin I6j4963-97-29 00:04:00* Test Item Value Reference Range Interpretation Comme nts Hemoglobin A1c (test code = 97164-0) 5.4 [facility] CtrHemoglobin F3q7284-55-96 00:04:00* Test Item Value Reference Range Interpretation Comme nts Hemoglobin A1c (test code = 77223-8) 5.4 [facility] CtrHemoglobin B5d4595-33-07 00:04:00* Test Item Value Reference Range Interpretation Comme nts Hemoglobin A1c (test code = 23735-4) 5.4 [facility] CtrHCG ur GR8150-40-66 20:31:00* Test Item Value Reference Range Interpretation Comme nts Urine HCG, Qualitative (test code = 2106-3) NEGATIVE [facility] CtrNT-proBNP eyquohdcsrr9753-81-30 20:02:00* Test Item Value Reference Range Interpretation Comme nts OS-Vnx-O-Type Natriuretic Pe ptide (test code = 019161756) 57 [facility] CtrNT-proBNP oxpqfxudaei7378-31-13 20:02:00* Test Item Value Reference Range Interpretation Comme nts VK-Wlx-H-Type Natriuretic Pe ptide (test code = 678752475) 57 [facility] NdsJ-rmswf0940-06-08 20:01:00* Test Item Value Reference Range Interpretation Comme nts D-Dimer (test code = 464467235) 246 [facility] CenterD-zdnxr[facility]64-67-89 20:01:00* Test Item Value Reference Range Interpretation Comme nts D-Dimer (test code = 210030534) 246 [facility] HccRhohnr1652-79-92 20:00:00* Test Item Value Reference Range Interpretation Comme nts Lipase (test code = 519514804) 27 [facility] CtrBilirubin cvihm7582-84-28 19:57:00* Test Item Value Reference Range Interpretation Comme nts Total Bilirubin (test code = HNY4660) < 0.2 [facility] PsxAOB3162-50-76 19:57:00* Test Item Value Reference Range Interpretation Comme nts Aspartate Amino Transf (AST/ SGOT) (test code = GYQ4096) 14 [facility] CtrGlobulin vll8089-84-25 19:57:00* Test Item Value Reference Range Interpretation Comme nts Globulin (test code = 927014973) 2.5 [facility] CtrALT (SGPT) ser/qqrc7984-21-94 19:57:00* Test Item Value Reference Range Interpretation Comme nts Alanine Aminotransferase (AL T/SGPT) (test code = 1742-6) 11 [facility] CtrALP ser/yzcd8670-92-65 19:57:00* Test Item Value Reference Range Interpretation Comme nts Total Alkaline Phosphatase ( test code = 6768-6) 65 [facility] CtrProthrombin uopj1624-62-27 19:53:00* Test Item Value Reference Range Interpretation Comme nts Prothrombin Time (test code = 394576120) 10.5 [facility] Center[facility] INR ogpiczckipr7075-38-64 19:53:00* Test Item Value Reference Range Interpretation Comme nts Prothromb Time International Ratio (test code = 81265-0) 0.96 [facility] CtrActivated partial thromboplastin time (aPTT) in platelet poor plasma by coagulation gvuue1140-16-52 19:53:00* Test Item Value Reference Range Interpretation Comme nts Activated Partial Thrombopla st Time (test code = 13205-4) 24.2 [facility] CtrProthrombin ghaz2521-16-53 19:53:00* Test Item Value Reference Range Interpretation Comme nts Prothrombin Time (test code = 554949537) 10.5 [facility] CenterWhole [facility] INR dtbganejgtz7277-22-55 19:53:00* Test Item Value Reference Range Interpretation Comme nts Prothromb Time International Ratio (test code = 66902-1) 0.96 [facility] CtrActivated partial thromboplastin time (aPTT) in platelet poor plasma by coagulation loohl6206-62-75 19:53:00* Test Item Value Reference Range Interpretation Comme nts Activated Partial Thrombopla st Time (test code = 86169-3) 24.2 [facility] CtrRBC count ur yeki4177-51-79 19:51:00* Test Item Value Reference Range Interpretation Comme nts Urine RBC (test code = 798-9) 0-2 [facility] CtrUrine examination for white blood cells (WBC) 2024-10-13 19:51:00* Test Item Value Reference Range Interpretation Comme nts Urine WBC (test code = 828463389) 3-5 [facility] CtrAutomated epithelial cells count in urine sediment (number/area)2024-10-13 19:51:00* Test Item Value Reference Range Interpretation Comme nts Urine Epithelial Cells (test code = 26996-1) More than 20/HPF [facility] CtrBacteria detection in urine sediment by light vjnfyrhrex8185-83-48 19:51:00* Test Item Value Reference Range Interpretation Comme [facility] Urine Bacteria (test code = 20030-5) Occasional [facility] CenterU[facility] casts detection by automated method 2024-10-13 19:51:00* Test Item Value Reference Range Interpretation Comme nts Urine Casts (test code = 80857-2) 0-2 [facility] CtrColor of Urine by Xzqi7614-29-44 19:46:00* Test Item Value Reference Range Interpretation Comme nts Urine Color (test code = 90114-2) Yellow [facility] CtrAppearance of Pivxo8625-75-06 19:46:00* Test Item Value Reference Range Interpretation Comme nts Urine Appearance (test code = 5767-9) Cloudy [facility] Center[facility] glucose mazvkxvoh1214-34-87 19:46:00* Test Item Value Reference Range Interpretation Comme [facility] Urine Glucose (UA) (test cod e = 2349-9) Negative [facility] CtrBilirubin ry6173-22-51 19:46:00* Test Item Value Reference Range Interpretation Comme nts Urine Bilirubin (test code = 192853059) Negative [facility] CtrKetones wk3002-42-08 19:46:00* Test Item Value Reference Range Interpretation Comme nts Urine Ketones (test code = 87441540) Negative [facility] CtrSpecific gravity of Urine by Automated test strip 2024-10-13 19:46:00* Test Item Value Reference Range Interpretation Comme nts Urine Specific [place] (test code = 17506-4) 1.025 [facility] CenterU[facility] blood mnwiadmbf2534-24-40 19:46:00* Test Item Value Reference Range Interpretation Comme nts Urine Blood (test code = 684674-8) Negative [facility] CtrpH mr4067-15-52 19:46:00* Test Item Value Reference Range Interpretation Comme nts Urine pH (test code = 2756-5) 5.500 [facility] CtrProtein te7704-98-80 19:46:00* Test Item Value Reference Range Interpretation Comme nts Urine Protein (test code = 69681404) Negative [facility] CtrUrobilinogen, urine, bl3823-60-31 19:46:00* Test Item Value Reference Range Interpretation Comme [facility] Urine Urobilinogen (test cod e = 208634417) 1.0 [facility] CenterU[facility] nitrate yzoztelsq4287-47-44 19:46:00* Test Item Value Reference Range Interpretation Comme [facility] Urine Nitrate (test code = 13304-9) Negative [facility] CenterU[facility] leukocyte esterase igelsgkxv0713-22-29 19:46:00* Test Item Value Reference Range Interpretation Comme [facility] Urine Leukocyte Esterase (te st code = 105516-4) Negative [facility] CtrTroponin V3773-72-74 07:13:54* Test Item Value Reference Range Interpretation Comme nts TROPONIN I (test code = 7008102511) 0.002 ng/mL <=0.034 DARWIN (test code = [...] of biotin. Lab Interpretation (test code = 84897-7) Normal [facility]woodTroponin F7953-37-33 05:06:47* Test Item Value Reference Range Interpretation Comme nts TROPONIN I (test code = 2482415331) 0.001 ng/mL <=0.034 DARWIN (test code = [...] of biotin. Lab Interpretation (test code = 59688-7) Normal [facility] KingwoodN-Terminal Baf-Gxz6294-28-08 05:04:06* Test Item Value Reference Range Interpretation Comme nts NT-proBNP (test code = 95028-1) 110 pg/mL <=125 Lab Interpretation (test cod e = 31888-2) Normal [facility] KingwoodComp. Metabolic Panel (43943)2024-10-13 04:55:24* Test Item Value Reference Range Interpretation Comme nts NA (test code = 4977370808) 135 mmol/L 135-145 K (test code = 2929635561) 3.5 mmol/L 3.5-5.0 CL (test code = 9684162139) 104 mmol/L 98-108 CO2 TOTAL (test code = 0325132494) 25 mmol/L 23-31 AGAP (test code = 0537067001) 6 2-16 BUN (test code = 0353056308) 12 mg/dL 7-23 GLUCOSE (test code = 6923649155) 83 mg/dL 70-110 CREATININE (test code = 2160-0) 0.55 mg/dL 0.50-1.04 TOTAL BILI (test code = 5263852576) 0.2 mg/dL 0.1-1.1 CALCIUM (test code = 9615229371) 9.2 mg/dL 8.6-10.6 T PROTEIN (test code = 9358243783) 6.3 g/dL 6.3-8.2 ALBUMIN (test code = 4206871917) 3.5 g/dL 3.5-5.0 ALK PHOS (test code = 3071749739) 58 U/L 34-122 ALTv (test code = 1742-6) 12 U/L 5-35 AST(SGOT) (test code = 4119231607) 13 U/L 13-40 eGFR (test code = 53487-4) 115.4 mL/min/1.73m2 CKD-EPI eGFR (20 21). Assuming creatinine has been stable day-to-day for at least three months, the eGFR indicates Category G1 (>= 90 mL/min/1.73 m2) [facility]woodLipase2025-04-08 04:55:03* Test Item Value Reference Range Interpretation Comme nts LIPASE (test code = 2271254127) 80 U/L 0-220 Lab Interpretation (test cod e = 44390-0) Normal [facility] KingwoodCbc with Ceaa2065-30-44 04:41:23* Test Item Value Reference Range Interpretation [...] 32.1 g/dL 31.6-35.1 RDW-SD (test code = 32020-8) 51.6 fL 39.0-49.9 H RDW-CV (test code = 788-0) 17.9 % 12.0-15.5 H PLT (test code = 777-3) 328 166-358 MPV (test code = 57230-2) 8.9 fL 9.5-12.9 L NRBC/100 WBC (test code = 6875054409) 0.0 0.0-10.0 NRBC x10^3 (test code = 3527399686) See_Comment [Automated messa ge] The system which generated this result transmitted reference range: 10*3/?L. The reference range was not used to interpret this result as normal/abnormal. GRAN MAT (NEUT) % (test code = 770-8) 60.6 % IMM GRAN % (test code = 3379809590) 0.60 % LYMPH % (test code = 736-9) 31.0 % MONO % (test code = 5905-5) 5.9 % EOS % (test code = 713-8) 1.5 % BASO % (test code = 706-2) 0.4 % GRAN MAT x10^3(ANC) (test code = 5640204286) 6.12 10*3/uL 1.88-7.09 IMM GRAN x10^3 (test code = 6714624909) 0.06 10*3/uL 0.00-0.06 LYMPH x10^3 (test code = 731-0) 3.13 10*3/uL 1.32-3.29 MONO x10^3 (test code = 742-7) 0.60 10*3/uL 0.33-0.92 EOS x10^3 (test code = 711-2) 0.15 10*3/uL 0.03-0.39 BASO x10^3 (test code = 704-7) 0.04 10*3/uL 0.01-0.07 Lab Interpretation (test code = 44417-9) Abnormal [facility]woodPOCT IYJF0380-02-15 03:46:00* Test Item Value Reference Range Interpretation Comme nts POCT PREG (test code = 1605) Negative On board controls acceptable with C Line (test code = 3574) Yes POCT PREG LOT # (test code = 3575) 720503 POCT PREG TEST DATE ( test code = 3576) 11/30/2025 Lab Interpretation (test cod e = 26665-6) Normal [facility] Chest pulmonary uqguwhvct1855-59-12 06:33:58Exam: CT Angiography Chest with Contrast, 07/18/2024 [...] the spleen. Osseous: No acute osseous finding. [facility]woodCT Abdomen pelvis w wcbfqmru0942-46-77 06:50:04Exam: CT Abdomen and Pelvis With Contrast, [...] nopelvic adenopathy. Osseous/Soft Tissues: Unremarkable. [facility] KingwoodPOCT RMLL8797-62-89 05:33:00* Test Item Value Reference Range Interpretation Comme nts POCT PREG (test code = 1605) Negative On board controls acceptable with C Line (test code = 3574) Yes POCT PREG LOT # (test code = 3575) [id number] POCT PREG TEST DATE ( test code = 3576) 2025-06-22 Lab Interpretation (test cod e = 53228-7) Normal [facility] KingwoodComplete Metabolic Zglyh2998-49-67 04:06:42* Test Item Value Reference Range Interpretation Comme [facility] NA (test code = 8873016734) 139 mmol/L 135-145 K (test code = 5638291175) 3.5 mmol/L 3.5-5.0 CL (test code = 6311808643) 105 mmol/L 98-108 CO2 TOTAL (test code = 1984456640) 26 mmol/L 23-31 AGAP (test code = 6338199686) 8 2-16 BUN (test code = 4399655322) 5 mg/dL 7-23 L GLUCOSE (test code = 7855710873) 101 mg/dL 70-110 CREATININE (test code = 2160-0) 0.58 mg/dL 0.50-1.04 TOTAL BILI (test code = 1464525566) 0.1-1.1 L CALCIUM (test code = 3515442508) 9.3 mg/dL 8.6-10.6 T PROTEIN (test code = 5894460286) 6.8 g/dL 6.3-8.2 ALBUMIN (test code = 5588008336) 3.9 g/dL 3.5-5.0 ALK PHOS (test code = 0553953699) 74 U/L 34-122 ALTv (test code = 1742-6) 17 U/L 5-35 AST(SGOT) (test code = 3847756768) 28 U/L 13-40 eGFR (test code = 90623-4) 113.9 mL/min/1.73m2 CKD-EPI eGFR (2020). Assuming creatinine has been stable day-to-day for at least three months, the eGFR indicates Category G1 (>= 90 mL/min/1.73 m2) Lab Interpretation (test code = 31149-9) Abnormal [facility] KingwoodLipase, Hndqw0117-72-24 04:01:05* Test Item Value Reference Range Interpretation Comme nts LIPASE (test code = 6178076237) 80 U/L 0-220 Lab Interpretation (test cod e = 31136-4) Normal [facility] KingwoodCBC with Bmteqypiqynv8918-40-37 03:46:26* Test Item Value Reference Range Interpretation [...] 33.2 g/dL 31.6-35.1 RDW-SD (test code = 89754-4) 42.5 fL 39.0-49.9 RDW-CV (test code = 788-0) 14.6 % 12.0-15.5 PLT (test code = 777-3) 327 166-358 MPV (test code = 93712-7) 9.3 fL 9.5-12.9 L NRBC/100 WBC (test code = 9053064598) 0.0 0.0-10.0 NRBC x10^3 (test code = 9444771783) See_Comment [Automated messa ge] The system which generated this result transmitted reference range: 10*3/?L. The reference range was not used to interpret this result as normal/abnormal. GRAN MAT (NEUT) % (test code = 770-8) 65.7 % IMM GRAN % (test code = 5646376674) 0.50 % LYMPH % (test code = 736-9) 26.4 % MONO % (test code = 5905-5) 5.6 % EOS % (test code = 713-8) 1.4 % BASO % (test code = 706-2) 0.4 % GRAN MAT x10^3(ANC) (test code = 9836547872) 8.21 10*3/uL 1.88-7.09 H IMM GRAN x10^3 (test code = 0256289323) 0.06 10*3/uL 0.00-0.06 LYMPH x10^3 (test code = 731-0) 3.30 10*3/uL 1.32-3.29 H MONO x10^3 (test code = 742-7) 0.70 10*3/uL 0.33-0.92 EOS x10^3 (test code = 711-2) 0.17 10*3/uL 0.03-0.39 BASO x10^3 (test code = 704-7) 0.05 10*3/uL 0.01-0.07 Lab Interpretation (test code = 06739-7) [facility]normal [facility] w tunylsll1307-34-64 05:39:04CT ABDOMEN PELVIS W CONTRAST HISTORY: 44 [...] TISSUES: No suspicious lytic or sclerotic bony lesions.[facility]. Metabolic Panel (30246)2024-06-15 05:12:33* Test Item Value Reference Range Interpretation Comme nts NA (test code = 4495039468) 139 mmol/L 135-145 K (test code = 6575522327) 3.7 mmol/L 3.5-5.0 CL (test code = 7187589515) 109 mmol/L 98-108 H CO2 TOTAL (test code = 7224644271) 23 mmol/L 23-31 AGAP (test code = 7760047129) 7 2-16 BUN (test code = 6051053844) 6 mg/dL 7-23 L GLUCOSE (test code = 4081128824) 101 mg/dL 70-110 CREATININE (test code = 2160-0) 0.67 mg/dL 0.50-1.04 TOTAL BILI (test code = 8379081018) 0.1-1.1 L CALCIUM (test code = 1171943139) 9.4 mg/dL 8.6-10.6 T PROTEIN (test code = 7546903387) 7.0 g/dL 6.3-8.2 ALBUMIN (test code = 7567714413) 4.0 g/dL 3.5-5.0 ALK PHOS (test code = 0569791895) 87 U/L 34-122 ALTv (test code = 1742-6) 28 U/L 5-35 AST(SGOT) (test code = 7848317787) 24 U/L 13-40 eGFR (test code = 97237-1) 110.0 mL/min/1.73m2 CKD-EPI eGFR (2020). Assuming creatinine has been stable day-to-day for at least three months, the eGFR indicates Category G1 (>= 90 mL/min/1.73 m2) Lab Interpretation (test code = 39673-4) Abnormal [facility]woodTroponin [id number] 05:03:33* Test Item Value Reference Range Interpretation Comme nts TROPONIN I (test code = 7255827411) 0.000 ng/mL <=0.034 DARWIN (test code = [...] of biotin. Lab Interpretation (test code = 22084-4) Normal [facility]woodLipase2024-12-09 04:51:35* Test Item Value Reference Range Interpretation Comme nts LIPASE (test code = 7989204922) 94 U/L 0-220 Lab Interpretation (test cod e = 16404-1) Normal [facility]woodPregnancy Test, Rapfg4081-30-46 04:51:30* Test Item Value Reference Range Interpretation Comme nts PREG SERUM (test code = 4437684350) Negative DARWIN (test code = DARWIN) Less than 10 IU/L. ?If low titer or ectopic is suspected, resubmit specimen in 48-72 hours. [facility]wood[facility]b with Wogz4375-09-60 04:36:57* Test Item Value Reference Range Interpretation [...] 32.9 g/dL 31.6-35.1 RDW-SD (test code = 81815-3) 44.3 fL 39.0-49.9 RDW-CV (test code = 788-0) 15.0 % 12.0-15.5 PLT (test code = 777-3) 347 166-358 MPV (test code = 24947-9) 9.4 fL 9.5-12.9 L NRBC/100 WBC (test code = 2692663660) 0.0 0.0-10.0 NRBC x10^3 (test code = 2154166675) See_Comment [Automated messa ge] The system which generated this result transmitted reference range: 10*3/?L. The reference range was not used to interpret this result as normal/abnormal. GRAN MAT (NEUT) % (test code = 770-8) 60.2 % IMM GRAN % (test code = 7863863304) 0.40 % LYMPH % (test code = 736-9) 31.3 % MONO % (test code = 5905-5) 5.8 % EOS % (test code = 713-8) 1.8 % BASO % (test code = 706-2) 0.5 % GRAN MAT x10^3(ANC) (test code = 5097961523) 6.36 10*3/uL 1.88-7.09 IMM GRAN x10^3 (test code = 1546366205) 0.04 10*3/uL 0.00-0.06 LYMPH x10^3 (test code = 731-0) 3.30 10*3/uL 1.32-3.29 H MONO x10^3 (test code = 742-7) 0.61 10*3/uL 0.33-0.92 EOS x10^3 (test code = 711-2) 0.19 10*3/uL 0.03-0.39 BASO x10^3 (test code = 704-7) 0.05 10*3/uL 0.01-0.07 Lab Interpretation (test code = 49523-1) [id number] 07:55:17* Test Item Value Reference Range Interpretation Comme nts TROPONIN I (test code = 0305146592) 0.000 ng/mL <=0.034 DARWIN (test code = [...] of biotin. Lab Interpretation (test code = 33867-7) Normal [facility]XR CHEST 1 [id number] 06:16:28Exam: Chest (1 View), 06/06/2024 11:30 PM. Ordering Physician: BOB GARCIA. History: Chest pain. Technique: AP view of the chest. Technical Quality: Adequate. Comparison: Chest radiograph 05/17/2024. Findings: Normal cardiac silhouette size. ?No airspace consolidation, pleuraleffusion, or pneumothorax. No acute osseous abnormality.[facility]woodPOCT ZMRC7716-11-83 05:19:00* Test Item Value Reference Range Interpretation Comme nts POCT PREG (test code = 1605) Negative On board controls acceptable with C Line (test code = 3574) Yes POCT PREG LOT # (test code = 3575) [id number] POCT PREG TEST DATE ( test code = 3576) 04/11/2025 Lab Interpretation (test cod e = 23113-7) Normal [facility]woodTroponin [id number] 05:00:24* Test Item Value Reference Range Interpretation Comme nts TROPONIN I (test code = 2510561905) 0.000 ng/mL <=0.034 DARWIN (test code = [...] of biotin. Lab Interpretation (test code = 55363-8) Normal [facility]. Metabolic Panel (92283)2024-06-07 05:00:19* Test Item Value Reference Range Interpretation Comme nts NA (test code = 3906280697) 139 mmol/L 135-145 K (test code = 7028469406) 3.6 mmol/L 3.5-5.0 CL (test code = 7798483187) 108 mmol/L 98-108 CO2 TOTAL (test code = 5695355629) 22 mmol/L 23-31 L AGAP (test code = 9298280611) 9 2-16 BUN (test code = 7354539103) 10 mg/dL 7-23 GLUCOSE (test code = 2346540591) 144 mg/dL 70-110 H CREATININE (test code = 2160-0) 0.62 mg/dL 0.50-1.04 TOTAL BILI (test code = 6090420112) 0.1-1.1 L CALCIUM (test code = 6748511827) 9.2 mg/dL 8.6-10.6 T PROTEIN (test code = 8863338727) 6.5 g/dL 6.3-8.2 ALBUMIN (test code = 3377599260) 3.7 g/dL 3.5-5.0 ALK PHOS (test code = 5456126696) 69 U/L 34-122 ALTv (test code = 1742-6) 14 U/L 5-35 AST(SGOT) (test code = 6746278922) 15 U/L 13-40 eGFR (test code = 00099-5) 112.1 mL/min/1.73m2 CKD-EPI eGFR (2020). Assuming creatinine has been stable day-to-day for at least three months, the eGFR indicates Category G1 (>= 90 mL/min/1.73 m2) Lab Interpretation (test code = 24804-7) Abnormal [facility] with Xxfe9467-53-95 04:38:25* Test Item Value Reference Range Interpretation [...] 32.8 g/dL 31.6-35.1 RDW-SD (test code = 71314-3) 44.1 fL 39.0-49.9 RDW-CV (test code = 788-0) 14.9 % 12.0-15.5 PLT (test code = 777-3) 358 166-358 MPV (test code = 16957-9) 9.4 fL 9.5-12.9 L NRBC/100 WBC (test code = 4189864103) 0.0 0.0-10.0 NRBC x10^3 (test code = 5351082112) See_Comment [Automated messa ge] The system which generated this result transmitted reference range: 10*3/?L. The reference range was not used to interpret this result as normal/abnormal. GRAN MAT (NEUT) % (test code = 770-8) 58.2 % IMM GRAN % (test code = 3061077593) 0.40 % LYMPH % (test code = 736-9) 34.1 % MONO % (test code = 5905-5) 4.7 % EOS % (test code = 713-8) 2.3 % BASO % (test code = 706-2) 0.3 % GRAN MAT x10^3(ANC) (test code = 0381502950) 5.33 10*3/uL 1.88-7.09 IMM GRAN x10^3 (test code = 6613886070) 0.04 10*3/uL 0.00-0.06 LYMPH x10^3 (test code = 731-0) 3.12 10*3/uL 1.32-3.29 MONO x10^3 (test code = 742-7) 0.43 10*3/uL 0.33-0.92 EOS x10^3 (test code = 711-2) 0.21 10*3/uL 0.03-0.39 BASO x10^3 (test code = 704-7) 0.03 10*3/uL 0.01-0.07 Lab Interpretation (test code = 37449-9) Abnormal [facility] WO [id number] 18:53:41EXAM: CT HEAD WO CONTRAST HISTORY: 44 [...] clear. Thecalvarium and central skull base are unremarkable.[facility]XR FOREARM 2 VW [id number] 04:08:39EXAM: XR HAND 3+ VW RIGHT, XR [...] No radiopaqueforeign body. Mild diffuse soft tissue swelling.[facility] HAND 3+ VW EEGYY2278-75-00 04:08:39EXAM: XR HAND 3+ VW RIGHT, XR [...] radiopaqueforeign body. Mild diffuse soft tissue swelling.[facility] <3 VW [id number] 04:08:39EXAM: XR HAND 3+ VW RIGHT, XR [...] radiopaqueforeign body. Mild diffuse soft tissue swelling. [facility] MAXILLOFACIAL/MANDIBLE WO CONTRAST 2024-05-18 03:36:27ORDERING [...] no evidence of retrobulbar hematomas or retroconal fatstranding.[facility] CERVICAL SPINE WO CONTRAST 2024-05-18 [...] tissues arenormal. The visualized lung apices are clear.[facility] Aoei1137-49-86 02:00:00* Test Item Value Reference Range Interpretation Comme nts POCT PREG (test code = 1605) Negative On board controls acceptable with C Line (test code = 3574) Yes Lab Interpretation (test cod e = 32359-6) Normal [facility]. Metabolic Panel (70362)2024-05-08 01:19:56* Test Item Value Reference Range Interpretation Comme nts NA (test code = 3744087004) 139 mmol/L 135-145 K (test code = 4511105819) 3.3 mmol/L 3.5-5.0 L CL (test code = 0099811305) 107 mmol/L 98-108 CO2 TOTAL (test code = 3564001108) 22 mmol/L 23-31 L AGAP (test code = 5084945770) 10 2-16 BUN (test code = 7362588315) 5 mg/dL 7-23 L GLUCOSE (test code = 8877020529) 131 mg/dL 70-110 H CREATININE (test code = 2160-0) 0.72 mg/dL 0.50-1.04 TOTAL BILI (test code = 1163655457) 0.1-1.1 L CALCIUM (test code = 2745259958) 9.3 mg/dL 8.6-10.6 T PROTEIN (test code = 7692342341) 7.0 g/dL 6.3-8.2 ALBUMIN (test code = 5048956123) 4.1 g/dL 3.5-5.0 ALK PHOS (test code = 1381870191) 76 U/L 34-122 ALTv (test code = 1742-6) 27 U/L 5-35 AST(SGOT) (test code = 1922034404) 30 U/L 13-40 eGFR (test code = 27354-0) 105.2 mL/min/1.73m2 CKD-EPI eGFR (2020). Assuming creatinine has been stable day-to-day for at least three months, the eGFR indicates Category G1 (>= 90 mL/min/1.73 m2) Lab Interpretation (test code = 03012-7) Abnormal [facility]woodTroponin [id number] 01:18:54* Test Item Value Reference Range Interpretation Comme nts TROPONIN I (test code = 4297965653) 0.003 ng/mL <=0.034 DARWIN (test code = [...] of biotin. Lab Interpretation (test code = 73316-6) Normal [facility] KingwoodMagnesium2024-11-01 01:07:50* Test Item Value Reference Range Interpretation Comme nts MAGNESIUM (test code = 4583727421) 1.7 mg/dL 1.7-2.4 Lab Interpretation (test cod e = 45717-8) Normal [facility] KingwoodLipase2024-11-01 01:07:30* Test Item Value Reference Range Interpretation Comme nts LIPASE (test code = 2559428237) 97 U/L 0-220 Lab Interpretation (test cod e = 15986-1) Normal [facility]wood[facility]b with Iebd7950-22-03 00:51:30* Test Item Value Reference Range Interpretation [...] 33.2 g/dL 31.6-35.1 RDW-SD (test code = 71398-6) 43.6 fL 39.0-49.9 RDW-CV (test code = 788-0) 14.8 % 12.0-15.5 PLT (test code = 777-3) 382 166-358 H MPV (test code = 24889-3) 9.7 fL 9.5-12.9 NRBC/100 WBC (test code = 0070546350) 0.0 0.0-10.0 NRBC x10^3 (test code = 3460282784) See_Comment [Automated messa ge] The system which generated this result transmitted reference range: 10*3/?L. The reference range was not used to interpret this result as normal/abnormal. GRAN MAT (NEUT) % (test code = 770-8) 63.3 % IMM GRAN % (test code = 3122471386) 0.40 % LYMPH % (test code = 736-9) 27.5 % MONO % (test code = 5905-5) 5.4 % EOS % (test code = 713-8) 2.9 % BASO % (test code = 706-2) 0.5 % GRAN MAT x10^3(ANC) (test code = 7213446919) 7.25 10*3/uL 1.88-7.09 H IMM GRAN x10^3 (test code = 1612289128) 0.05 10*3/uL 0.00-0.06 LYMPH x10^3 (test code = 731-0) 3.15 10*3/uL 1.32-3.29 MONO x10^3 (test code = 742-7) 0.62 10*3/uL 0.33-0.92 EOS x10^3 (test code = 711-2) 0.33 10*3/uL 0.03-0.39 BASO x10^3 (test code = 704-7) 0.06 10*3/uL 0.01-0.07 Lab Interpretation (test code = 27150-2) Abnormal [facility] or plasma cardiac troponin I panel by high sensitivity rbhsac4933-04-83 17:16:00* Test Item Value Reference Range Interpretation Comme nts Troponin T High Sensitivity (test code = 63468-3) < 6.0 [facility] CtrSerum or plasma glucose measurement (mass/volume) 2024-04-10 17:14:00* Test Item Value Reference Range Interpretation Comme nts Random Glucose (test code = 2345-7) 109 [facility] CtrSerum or plasma urea nitrogen measurement (mass/volume)2024-04-10 17:14:00* Test Item Value Reference Range Interpretation Comme nts Blood Urea Nitrogen (test co de = 3094-0) 4 [facility] VdyCCA8776-21-53 17:14:00* Test Item Value Reference Range Interpretation Comme nts Aspartate Amino Transf (AST/ SGOT) (test code = GNP3837) 14 [facility] CtrBilirubin ajxdy7628-63-32 17:14:00* Test Item Value Reference Range Interpretation Comme nts Total Bilirubin (test code = WHD6794) < 0.2 [facility] CtrEstimated glomerular filtration rate (GFR) amsimfidxagcm6760-00-70 17:14:00* Test Item Value Reference Range Interpretation Comme nts Glomerular Filtration Rate C alc (test code = 134054540) > 60.00 [facility] CtrBUN/creatinine mbulp4035-68-47 17:14:00* Test Item Value Reference Range Interpretation Comme nts BUN/Creatinine Ratio (test c ode = 63871409) 7.3 [facility] LweCP93702-44-09 17:14:00* Test Item Value Reference Range Interpretation Comme nts Carbon Dioxide Level (test c ode = 91785641) 22 [facility] CtrAnion gap vqpguvbuyko5742-95-34 17:14:00* Test Item Value Reference Range Interpretation Comme nts Anion Gap (test code = 11566270) 16.6 [facility] CtrCalcium esihm0586-82-66 17:14:00* Test Item Value Reference Range Interpretation Comme nts Calcium Level (test code = 74016629) 9.9 [facility] CtrGlobulin iof1425-66-07 17:14:00* Test Item Value Reference Range Interpretation Comme nts Globulin (test code = 156370163) 3.1 [facility] CtrALT (SGPT) ser/vjoq6760-67-35 17:14:00* Test Item Value Reference Range Interpretation Comme nts Alanine Aminotransferase (AL T/SGPT) (test code = 1742-6) 10 [facility] CtrAmylase rizvv5628-54-57 17:14:00* Test Item Value Reference Range Interpretation Comme nts Amylase Level (test code = 1798-8) 48 [facility] FypGqrwlm0037-03-33 17:14:00* Test Item Value Reference Range Interpretation Comme nts Lipase (test code = 84342388) 24 [facility] CtrALP ser/pcrv2553-58-22 17:14:00* Test Item Value Reference Range Interpretation Comme nts Total Alkaline Phosphatase ( test code = 6768-6) 92 [facility] CtrAmphetamine ur njcaqd8259-93-31 17:13:00* Test Item Value Reference Range Interpretation Comme nts Urine Amphetamines Screen (t est code = 04413-5) NEGATIVE [facility] NvpFcvatwpdn5778-72-23 17:13:00* Test Item Value Reference Range Interpretation Comme nts Methadone Level (test code = JMT1433) NEGATIVE [facility] CtrBenzodiazepines screen fr8563-31-99 17:13:00* Test Item Value Reference Range Interpretation Comme nts Urine Benzodiazepines Screen (test code = 816662841) POSITIVE [facility] CtrCannabinoids (7-ixjrivk-CZV) rbnypitqhii6063-67-26 17:13:00* Test Item Value Reference Range Interpretation Comme nts Urine Cannabinoids (test cod e = 138695628) NEGATIVE [facility] CtrCocaine metabolite zwgfzf8000-69-06 17:13:00* Test Item Value Reference Range Interpretation Comme nts Urine Cocaine Metabolite (te st code = 289447577) NEGATIVE [facility] CtrOpiates nqpsj4407-19-36 17:13:00* Test Item Value Reference Range Interpretation Comme nts Urine Opiates Screen (test c ode = 244253784) NEGATIVE [facility] CtrUrine hydrocodone measurement (mass/volume) 2024-04-10 17:13:00* Test Item Value Reference Range Interpretation Comme nts Hydrocodone Level (test code = 3681-4) NEGATIVE [facility] CtrUrine fentanyl measurement by confirmatory method (mass/volume)2024-04-10 17:13:00* Test Item Value Reference Range Interpretation Comme nts Urine Fentanyl Screen (test code = 56790-2) NEGATIVE [facility] CtrPhencyclidine (PCP) lk0147-83-71 17:13:00* Test Item Value Reference Range Interpretation Comme nts Urine Phencyclidine (PCP) Le edilson (test code = 832627951) NEGATIVE [facility] CtrPropoxyphene [Mass/volume] in Iihgm5926-73-03 17:13:00* Test Item Value Reference Range Interpretation Comme nts Propoxyphene Level (test cod e = 3545-1) NEGATIVE [facility] CtroxyCODONE [Mass/volume] in Kdwjs6844-62-89 17:13:00* Test Item Value Reference Range Interpretation Comme nts Oxycodone Level (test code = 09987-4) NEGATIVE [facility] CtrUrine leukocyte esterase bgcytkhxb2664-76-51 17:10:00* Test Item Value Reference Range Interpretation Comme nts Urine Leukocyte Esterase (te st code = 841435052) 3+ [facility] CtrRBC count ur eedt3454-59-24 17:08:00* Test Item Value Reference Range Interpretation Comme nts Urine RBC (test code = 798-9) 0-2 [facility] CtrUrine examination for white blood cells (WBC) 2024-04-10 17:08:00* Test Item Value Reference Range Interpretation Comme nts Urine WBC (test code = 056358377) >100 [facility] CtrAutomated epithelial cells count in urine sediment (number/area)2024-04-10 17:08:00* Test Item Value Reference Range Interpretation Comme nts Urine Epithelial Cells (test code = 89630-8) 6-10 [facility] CtrBacteria detection in urine sediment by light nrlbxjnxzh0100-25-97 17:08:00* Test Item Value Reference Range Interpretation Comme nts Urine Bacteria (test code = 43115-2) Few [facility] CtrUrine casts detection by automated method 2024-04-10 17:08:00* Test Item Value Reference Range Interpretation Comme nts Urine Casts (test code = 27238-6) 0-2 [facility] CtrColor of Urine by Mftz7776-89-93 17:03:00* Test Item Value Reference Range Interpretation Comme nts Urine Color (test code = 82326-8) Yellow [facility] CtrAppearance of Bstev0261-33-72 17:03:00* Test Item Value Reference Range Interpretation Comme nts Urine Appearance (test code = 5767-9) Cloudy [facility] CtrUrine glucose joqmtvbab7546-38-80 17:03:00* Test Item Value Reference Range Interpretation Comme nts Urine Glucose (UA) (test cod e = 2349-9) Negative [facility] CtrBilirubin in0427-77-00 17:03:00* Test Item Value Reference Range Interpretation Comme nts Urine Bilirubin (test code = 211086706) Negative [facility] CtrKetones kc3589-77-99 17:03:00* Test Item Value Reference Range Interpretation Comme nts Urine Ketones (test code = 71387443) Negative [facility] CtrSpecific gravity of Urine by Automated test strip 2024-04-10 17:03:00* Test Item Value Reference Range Interpretation Comme nts Urine Specific [place] (test code = 56964-1) 1.006 [facility] CtrUrine blood hdpzndhwa6294-00-60 17:03:00* Test Item Value Reference Range Interpretation Comme nts Urine Blood (test code = 89137-8) Nonhemolyzed Trace [facility] CtrpH rv5339-90-64 17:03:00* Test Item Value Reference Range Interpretation Comme nts Urine pH (test code = 2756-5) 6.000 [facility] CtrProtein km4288-64-83 17:03:00* Test Item Value Reference Range Interpretation Comme nts Urine Protein (test code = 66836912) Negative [facility] CtrUrobilinogen, urine, up2961-83-74 17:03:00* Test Item Value Reference Range Interpretation Comme nts Urine Urobilinogen (test cod e = 012580814) 0.2 [facility] CtrUrine nitrate mjrkqkqmc8767-90-30 17:03:00* Test Item Value Reference Range Interpretation Comme nts Urine Nitrate (test code = 36236-4) Negative [facility] CtrHCG ur JB6634-49-69 17:03:00* Test Item Value Reference Range Interpretation Comme nts Urine HCG, Qualitative (test code = 2106-3) NEGATIVE [facility] CtrAbsolute eosinophil zraqh5383-74-11 17:00:00* Test Item Value Reference Range Interpretation Comme nts Eosinophils # (Auto) (test c ode = NXT2344) 0.25 [facility] CtrRBC rrmrf4351-69-90 17:00:00* Test Item Value Reference Range Interpretation Comme [facility] Red Blood Count (test code = 31555220) 5.17 [facility] EkxIkwmgtapvd5916-56-82 17:00:00* Test Item Value Reference Range Interpretation Comme [facility] Hematocrit (test code = 75217100) 41.9 [facility] CtrMCV (mean corpuscular volume) determination 2024-04-10 17:00:00* Test Item Value Reference Range Interpretation Comme [facility] Mean Corpuscular Volume (shailesh t code = 82158-4) 81.0 [facility] CtrMean corpuscular hemoglobin (MCH) determination 2024-04-10 17:00:00* Test Item Value Reference Range Interpretation Comme [facility] Mean Corpuscular Hemoglobin (test code = 77771226) 26.1 [facility] (MCHC) iqmuqgyigwwql6081-97-32 17:00:00* Test Item Value Reference Range Interpretation Comme [facility] Mean Corpuscular Hemoglobin Concent (test code = 96687870) 32.2 [facility] CtrRBC distribution width coefficient of variation 2024-04-10 17:00:00* Test Item Value Reference Range Interpretation Comme [facility] Red Cell Distribution Width (test code = 03397679) 15.2 [facility] CtrPlatelet tfxyl1083-78-71 17:00:00* Test Item Value Reference Range Interpretation Comme [facility] Platelet Count (test code = 52577021) 343 [facility] CtrMean platelet fakoao1319-71-80 17:00:00* Test Item Value Reference Range Interpretation Comme [facility] Mean Platelet Volume (test c ode = 95212924) 9.3 [facility] CtrNeutrophils seg % rno0177-27-19 17:00:00* Test Item Value Reference Range Interpretation Comme [facility] Neutrophils (%) (Auto) (test code = 53673-9) 71.4 [facility] CtrAbsolute immature granulocyte nmvhd1877-14-72 17:00:00* Test Item Value Reference Range Interpretation Comme nts Absolute Immature Granulocyt e (auto (test code = 90831-8) 0.05 [facility] CtrBlood band neutrophils count (number/volume) 2024-04-10 17:00:00* Test Item Value Reference Range Interpretation Comme nts Neutrophils # (Auto) (test c ode = 83137-5) 8.20 [facility] CtrAbsolute lymphocyte insbc2891-51-87 17:00:00* Test Item Value Reference Range Interpretation Comme nts Lymphocytes # (Auto) (test c ode = 10069-9) 2.42 [facility] CtrAbsolute basophil ajnop4183-16-83 17:00:00* Test Item Value Reference Range Interpretation Comme nts Basophils # (Auto) (test cod e = 81029113) 0.03 [facility] CtrAbsolute NRBC klpjj9955-08-60 17:00:00* Test Item Value Reference Range Interpretation Comme nts Nucleated Red Blood Cells # (test code = 294226176) 0 [facility] CtrCT ABDOMEN PELVIS WO ZZPFYSNW3842-51-31 00:27:38 Ordering Physician: JACQUE ROJO Clinical indication: [...] the spine.Multilevel lumbar central canal stenosis is present.[facility] Metabolic [id number] 23:13:34* Test Item Value Reference Range Interpretation Comme nts NA (test code = 0651893123) 136 mmol/L 135-145 K (test code = 0987912529) 3.7 mmol/L 3.5-5.0 CL (test code = 4795037767) 106 mmol/L 98-108 CO2 TOTAL (test code = 6123845228) 20 mmol/L 23-31 L AGAP (test code = 5038928114) 10 2-16 BUN (test code = 1680523751) 6 mg/dL 7-23 L GLUCOSE (test code = 4606222899) 149 mg/dL 70-110 H CREATININE (test code = 2160-0) 0.63 mg/dL 0.50-1.04 TOTAL BILI (test code = 6927379620) 0.3 mg/dL 0.1-1.1 CALCIUM (test code = 8219758873) 9.2 mg/dL 8.6-10.6 T PROTEIN (test code = 7353658090) 7.4 g/dL 6.3-8.2 ALBUMIN (test code = 1019111757) 4.3 g/dL 3.5-5.0 ALK PHOS (test code = 0438238695) 74 U/L 34-122 ALTv (test code = 1742-6) 20 U/L 5-35 AST(SGOT) (test code = 7807612530) 22 U/L 13-40 eGFR (test code = 92111-9) 111.6 mL/min/1.73m2 CKD-EPI eGFR (2020). Assuming creatinine has been stable day-to-day for at least three months, the eGFR indicates Category G1 (>= 90 mL/min/1.73 m2) Lab Interpretation (test code = 04085-4) [facility]normal [facility]wood[facility], [id number] 23:12:53* Test Item Value Reference Range Interpretation Comme nts LIPASE (test code = 8862479398) 104 U/L 0-220 Lab Interpretation (test cod e = 32576-5) Normal [facility]wood[facility] Jyqh1285-13-40 23:01:00* Test Item Value Reference Range Interpretation Comme nts POCT PREG (test code = 1605) Negative On board controls acceptable with C Line (test code = 3574) Yes POCT PREG LOT # (test code = 3575) [id number] POCT PREG TEST DATE ( test code = 3576) Lab Interpretation (test cod e = 64578-1) Normal [facility] with Vcvanrjkvwbr1752-68-88 23:00:31* Test Item Value Reference Range Interpretation [...] 33.0 g/dL 31.6-35.1 RDW-SD (test code = 65929-4) 45.5 fL 39.0-49.9 RDW-CV (test code = 788-0) 15.3 % 12.0-15.5 PLT (test code = 777-3) 370 166-358 H MPV (test code = 79235-2) 9.3 fL 9.5-12.9 L NRBC/100 WBC (test code = 2208480624) 0.0 0.0-10.0 NRBC x10^3 (test code = 3183480742) See_Comment [Automated messa ge] The system which generated this result transmitted reference range: 10*3/?L. The reference range was not used to interpret this result as normal/abnormal. GRAN MAT (NEUT) % (test code = 770-8) 71.8 % IMM GRAN % (test code = 0626720042) 0.60 % LYMPH % (test code = 736-9) 20.9 % MONO % (test code = 5905-5) 4.9 % EOS % (test code = 713-8) 1.4 % BASO % (test code = 706-2) 0.4 % GRAN MAT x10^3(ANC) (test code = 2313612159) 9.75 10*3/uL 1.88-7.09 H IMM GRAN x10^3 (test code = 4362605905) 0.08 10*3/uL 0.00-0.06 H LYMPH x10^3 (test code = 731-0) 2.83 10*3/uL 1.32-3.29 MONO x10^3 (test code = 742-7) 0.66 10*3/uL 0.33-0.92 EOS x10^3 (test code = 711-2) 0.19 10*3/uL 0.03-0.39 BASO x10^3 (test code = 704-7) 0.05 10*3/uL 0.01-0.07 Lab Interpretation (test code = 23003-3) Abnormal [facility] ABDOMEN PELVIS W [id number] 05:07:16ORDERING PHYSICIAN:BOB MUSA CLINICAL INFORMATION: ? Abdominal [...] are clear. There are nosuspicious focal osseous lesions.[facility] Complete Metabolic Rmqth2666-87-37 04:38:59* Test Item Value Reference Range Interpretation Comme nts NA (test code = 5310795449) 138 mmol/L 135-145 K (test code = 1160028725) 3.7 mmol/L 3.5-5.0 CL (test code = 7209405949) 108 mmol/L 98-108 CO2 TOTAL (test code = 0472918155) 22 mmol/L 23-31 L AGAP (test code = 1964655330) 8 2-16 BUN (test code = 0469374299) 12 mg/dL 7-23 GLUCOSE (test code = 7294114844) 98 mg/dL 70-110 CREATININE (test code = 2160-0) 0.62 mg/dL 0.50-1.04 TOTAL BILI (test code = 6791372828) 0.4 mg/dL 0.1-1.1 CALCIUM (test code = 6459994776) 8.9 mg/dL 8.6-10.6 T PROTEIN (test code = 2900659749) 7.1 g/dL 6.3-8.2 ALBUMIN (test code = 5728978352) 3.8 g/dL 3.5-5.0 ALK PHOS (test code = 6482851560) 89 U/L 34-122 ALTv (test code = 1742-6) 17 U/L 5-35 AST(SGOT) (test code = 6233655566) 22 U/L 13-40 eGFR (test code = 30902-3) 112.8 mL/min/1.73m2 CKD-EPI eGFR (2020). Assuming creatinine has been stable day-to-day for at least three months, the eGFR indicates Category G1 (>= 90 mL/min/1.73 m2) Lab Interpretation (test code = 33839-9) Abnormal [facility]woodLip[facility], [id number] 04:38:58* Test Item Value Reference Range Interpretation Comme nts LIPASE (test code = 7392042360) 136 U/L 0-220 Lab Interpretation (test cod e = 68982-6) Normal [facility] with Brvwyeafckyd9204-00-73 04:19:14* Test Item Value Reference Range Interpretation [...] 32.2 g/dL 31.6-35.1 RDW-SD (test code = 59499-2) 50.2 fL 39.0-49.9 H RDW-CV (test code = 788-0) 17.3 % 12.0-15.5 H PLT (test code = 777-3) 377 166-358 H MPV (test code = 89222-5) 9.4 fL 9.5-12.9 L NRBC/100 WBC (test code = 9868777995) 0.0 0.0-10.0 NRBC x10^3 (test code = 1935301681) See_Comment [Automated messa ge] The system which generated this result transmitted reference range: 10*3/?L. The reference range was not used to interpret this result as normal/abnormal. GRAN MAT (NEUT) % (test code = 770-8) 65.3 % IMM GRAN % (test code = 7731230633) 0.40 % LYMPH % (test code = 736-9) 26.1 % MONO % (test code = 5905-5) 6.2 % EOS % (test code = 713-8) 1.6 % BASO % (test code = 706-2) 0.4 % GRAN MAT x10^3(ANC) (test code = 3222211085) 7.33 10*3/uL 1.88-7.09 H IMM GRAN x10^3 (test code = 7557933665) 0.04 10*3/uL 0.00-0.06 LYMPH x10^3 (test code = 731-0) 2.93 10*3/uL 1.32-3.29 MONO x10^3 (test code = 742-7) 0.70 10*3/uL 0.33-0.92 EOS x10^3 (test code = 711-2) 0.18 10*3/uL 0.03-0.39 BASO x10^3 (test code = 704-7) 0.05 10*3/uL 0.01-0.07 Lab Interpretation (test code = 99700-2) Abnormal [facility] [id number] 03:40:00* Test Item Value Reference Range Interpretation Comme nts POCT PREG (test code = 1605) Negative On board controls acceptable with C Line (test code = 3574) Yes POCT PREG LOT # (test code = 3575) [id number] POCT PREG TEST DATE ( test code = 3576) 2024-10-13 Lab Interpretation (test cod e = 85686-4) Normal [facility]woodXR [id number] 04:35:04Ordering physician: ROBERTO RICHARDS INDICATION: Abdominal pain COMPARISON: CT of the abdomen and pelv is dated 03/09/2023 FINDINGS: Supine AP view of the abdomen and pelvis. There is no bowelobstruction or generalized constipation.[facility] Eaji4305-84-18 02:30:00* Test Item Value Reference Range Interpretation Comme nts POCT PREG (test code = 1605) Negative On board controls acceptable with C Line (test code = 3574) Yes POCT PREG LOT # (test code = 3575) [id number] POCT PREG TEST DATE ( test code = 3576) 2024-09-15 Lab Interpretation (test cod e = 97803-9) Normal [facility] WITH [id number] 00:05:06* Test Item Value Reference Range Interpretation [...] 34.2 g/dL 31.6-35.1 RDW-SD (test code = 12637-4) 41.5 fL 39.0-49.9 RDW-CV (test code = 788-0) 14.5 % 12.0-15.5 PLT (test code = 777-3) 384 See_Comment H [Automated messa ge] The system which generated this result transmitted reference range: 166 - 358 10*3/?L. The reference range was not used to interpret this result as normal/abnormal. MPV (test code = 53377-8) 9.6 fL 9.5-12.9 GRAN MAT (NEUT) % (test code = 770-8) 66.0 % IMM GRAN % (test code = 2075110758) 0.50 % LYMPH % (test code = 736-9) 27.4 % MONO % (test code = 5905-5) 4.6 % EOS % (test code = 713-8) 1.1 % BASO % (test code = 706-2) 0.4 % GRAN MAT x10^3(ANC) (test code = 8168393734) 7.96 10*3/uL 1.88-7.09 H IMM GRAN x10^3 (test code = 4860733432) 0.06 10*3/uL 0.00-0.06 LYMPH x10^3 (test code = 731-0) 3.30 10*3/uL 1.32-3.29 H MONO x10^3 (test code = 742-7) 0.56 10*3/uL 0.33-0.92 EOS x10^3 (test code = 711-2) 0.13 10*3/uL 0.03-0.39 BASO x10^3 (test code = 704-7) 0.05 10*3/uL 0.01-0.07 Lab Interpretation (test code = 47184-1) Abnormal [facility]. METABOLIC PANEL (70085)2023-05-09 23:27:13* Test Item Value Reference Range Interpretation Comme nts NA (test code = 1111968465) 137 mmol/L 135-145 K (test code = 2784978488) 3.3 mmol/L 3.5-5.0 L CL (test code = 4816909625) 103 mmol/L 98-108 CO2 TOTAL (test code = 1766304694) 20 mmol/L 23-31 L AGAP (test code = 8439049825) 14 2-16 BUN (test code = 5057403010) 5 mg/dL 7-23 L GLUCOSE (test code = 7071661470) 146 mg/dL 70-110 H CREATININE (test code = 6598184738) 0.60 mg/dL 0.50-1.04 TOTAL BILI (test code = 4481145229) 0.3 mg/dL 0.1-1.1 CALCIUM (test code = 4414331238) 9.3 mg/dL 8.6-10.6 T PROTEIN (test code = 7129884512) 7.9 g/dL 6.3-8.2 ALBUMIN (test code = 8951211645) 4.4 g/dL 3.5-5.0 ALK PHOS (test code = 3814519066) 105 U/L 34-122 ALTv (test code = 1742-6) 38 U/L 5-35 H AST(SGOT) (test code = 3331639159) 21 U/L 13-40 eGFR (test code = 81542-0) 113.7 mL/min/1.73m2 CKD-EPI eGFR (2020). Assuming creatinine has been stable day-to-day for at least three months, the eGFR indicates Category G1 (>= 90 mL/min/1.73 m2) Lab Interpretation (test code = 34472-4) [facility]normal [facility]woodL[facility]2023-[facility]-02 23:27:13* Test Item Value Reference Range Interpretation Comme nts LIPASE (test code = 6161494106) 142 U/L 0-220 Lab Interpretation (test cod e = 88942-8) Normal [facility]. METABOLIC PANEL (50508)2023-04-30 23:41:47* Test Item Value Reference Range Interpretation Comme nts NA (test code = 9181891183) 139 mmol/L 135-145 K (test code = 9980740948) 3.3 mmol/L 3.5-5.0 L CL (test code = 9512553261) 105 mmol/L 98-108 CO2 TOTAL (test code = 4676624503) 20 mmol/L 23-31 L AGAP (test code = 1471814736) 14 2-16 BUN (test code = 3551448390) 6 mg/dL 7-23 L GLUCOSE (test code = 6488412965) 119 mg/dL 70-110 H CREATININE (test code = 9224212306) 0.59 mg/dL 0.50-1.04 TOTAL BILI (test code = 3012449485) 0.3 mg/dL 0.1-1.1 CALCIUM (test code = 3059302404) 9.7 mg/dL 8.6-10.6 T PROTEIN (test code = 3594343509) 7.6 g/dL 6.3-8.2 ALBUMIN (test code = 3106133591) 4.2 g/dL 3.5-5.0 ALK PHOS (test code = 4431461158) 78 U/L 34-122 ALTv (test code = 1742-6) 24 U/L 5-35 AST(SGOT) (test code = 1144662780) 24 U/L 13-40 eGFR (test code = 4814873254) 110.7 mL/min/1.73m2 DARWIN (test code = DARWIN) [...] imaging tests). Lab Interpretation (test code = 01530-1) Abnormal [facility] WITH [id number] 23:29:07* Test Item Value Reference Range Interpretation Comme nts WBC (test code = 6690-2) 11.56 See_Comment H [Automated [employer]] The system which generated this result transmitted reference range: 4.30 - 11.10 10*3/?L. The reference range was not used to interpret this result as normal/abnormal. RBC (test code = 789-8) 5.02 See_Comment [Automated [employer]] The system which generated this result transmitted [...] 33.7 g/dL 31.6-35.1 RDW-SD (test code = 82993-7) 41.5 fL 39.0-49.9 RDW-CV (test code = 788-0) 14.3 % 12.0-15.5 PLT (test code = 777-3) 335 See_Comment [Automated messa ge] The system which generated this result transmitted reference range: 166 - 358 10*3/?L. The reference range was not used to interpret this result as normal/abnormal. MPV (test code = 54692-7) 9.7 fL 9.5-12.9 NRBC/100 WBC (test code = 8707128366) 0.0 See_Comment [Automated me ssage] The system which generated this result transmitted reference range: 0.0 - 10.0 /100 WBCs. The reference range was not used to interpret this result as normal/abnormal. NRBC x10^3 (test code = 7563239598) See_Comment [Automated messa ge] The system which generated this result transmitted reference range: 10*3/?L. The reference range was not used to interpret this result as normal/abnormal. GRAN MAT (NEUT) % (test code = 770-8) 65.7 % IMM GRAN % (test code = 3401261828) 0.50 % LYMPH % (test code = 736-9) 25.4 % MONO % (test code = 5905-5) 6.7 % EOS % (test code = 713-8) 1.2 % BASO % (test code = 706-2) 0.5 % GRAN MAT x10^3(ANC) (test code = 4218383197) 7.59 10*3/uL 1.88-7.09 H IMM GRAN x10^3 (test code = 1950172992) 0.06 10*3/uL 0.00-0.06 LYMPH x10^3 (test code = 731-0) 2.94 10*3/uL 1.32-3.29 MONO x10^3 (test code = 742-7) 0.77 10*3/uL 0.33-0.92 EOS x10^3 (test code = 711-2) 0.14 10*3/uL 0.03-0.39 BASO x10^3 (test code = 704-7) 0.06 10*3/uL 0.01-0.07 Lab Interpretation (test code = 50268-2) Abnormal [facility] [id number] 22:59:00* Test Item Value Reference Range Interpretation Comme nts POCT PREG (test code = 1605) Negative On board controls acceptable with C Line (test code = 3574) Yes POCT PREG LOT # (test code = 3575) [id number] POCT PREG TEST DATE ( test code = 3576) 07/10/2024 Lab Interpretation (test cod e = 29059-3) Normal [facility]woodTR[facility] [id number] 02:36:34* Test Item Value Reference Range Interpretation Comme nts TROPONIN I (test code = 1481189659) 0.000 ng/mL <=0.034 DARWIN (test code = [...] of biotin. Lab Interpretation (test code = 34043-2) Normal [facility]woodN-TERMINAL TUL-[id number] 02:34:17* Test Item Value Reference Range Interpretation Comme [facility] NT-proBNP (test code = 50307-3) 40 pg/mL <=125 Lab Interpretation (test cod e = 37944-4) Normal [facility]woodACTIVATED PARTIAL THRMPLAS [id number] 02:33:37* Test Item Value Reference Range Interpretation [...] 30 seconds. Lab Interpretation (test code = 57281-8) Normal [facility] KingwoodPROTHROMBIN TIME / [id number] 02:31:36* Test Item Value Reference Range Interpretation Comme [facility] PROTIME PATIENT (test code = 5964-2) 12.6 See_Comment [Automated Expert TAa ge] The system which generated this result transmitted reference range: 12.0 - 14.7 Seconds. The reference range was not used to interpret this result as normal/abnormal. INR (test code = 6301-6) 1.0 Normal INR <1.1; Warfarin Therapeutic range 2.0 to 3.0 or 2.5 to 3.5, depending upon the indications. Lab Interpretation (test code = 55539-9) Normal [facility]. METABOLIC PANEL (03454)2023-04-17 02:24:56* Test Item Value Reference Range Interpretation Comme nts NA (test code = 2879976810) 142 mmol/L 135-145 K (test code = 7957504151) 3.1 mmol/L 3.5-5.0 L CL (test code = 3002319914) 108 mmol/L 98-108 CO2 TOTAL (test code = 6325184405) 20 mmol/L 23-31 L AGAP (test code = 7076696919) 14 2-16 BUN (test code = 1385826094) 4 mg/dL 7-23 L GLUCOSE (test code = 8332447624) 107 mg/dL 70-110 CREATININE (test code = 0078347096) 0.61 mg/dL 0.50-1.04 TOTAL BILI (test code = 5135661418) 0.2 mg/dL 0.1-1.1 CALCIUM (test code = 5442906102) 9.1 mg/dL 8.6-10.6 T PROTEIN (test code = 1919894283) 7.0 g/dL 6.3-8.2 ALBUMIN (test code = 3078363618) 3.9 g/dL 3.5-5.0 ALK PHOS (test code = 0153379472) 69 U/L 34-122 ALTv (test code = 1742-6) 21 U/L 5-35 AST(SGOT) (test code = 2266218712) 21 U/L 13-40 eGFR (test code = 2174240654) 106.5 mL/min/1.73m2 DARWIN (test code = DARWIN) [...] imaging tests). Lab Interpretation (test code = 41393-9) Abnormal [facility]woodL[facility]2023-[facility]-11 02:24:56* Test Item Value Reference Range Interpretation Comme nts LIPASE (test code = 2380146780) 104 U/L 0-220 Lab Interpretation (test cod e = 75220-3) Normal [facility]CBC WITH [id number] 02:13:31* Test Item Value Reference Range Interpretation Comme nts WBC (test code = 6690-2) 10.74 See_Comment [Automated Expert TAa [employer]!] The system which generated this result transmitted reference range: 4.30 - 11.10 10*3/?L. The reference range was not used to interpret this result as normal/abnormal. RBC (test code = 789-8) 4.75 See_Comment [Automated Expert TAa [employer]!] The system which generated this result transmitted [...] 34.5 g/dL 31.6-35.1 RDW-SD (test code = 36542-8) 39.1 fL 39.0-49.9 RDW-CV (test code = 788-0) 13.5 % 12.0-15.5 PLT (test code = 777-3) 324 See_Comment [Automated messa ge] The system which generated this result transmitted reference range: 166 - 358 10*3/?L. The reference range was not used to interpret this result as normal/abnormal. MPV (test code = 90075-7) 9.3 fL 9.5-12.9 L NRBC/100 WBC (test code = 3985427438) 0.0 See_Comment [Automated [employer] ssage] The system which generated this result transmitted reference range: 0.0 - 10.0 /100 WBCs. The reference range was not used to interpret this result as normal/abnormal. NRBC x10^3 (test code = 0988408846) See_Comment [Automated Expert TAa ge] The system which generated this result transmitted reference range: 10*3/?L. The reference range was not used to interpret this result as normal/abnormal. GRAN MAT (NEUT) % (test code = 770-8) 65.2 % IMM GRAN % (test code = 9396766276) 0.40 % LYMPH % (test code = 736-9) 26.5 % MONO % (test code = 5905-5) 5.8 % EOS % (test code = 713-8) 1.7 % BASO % (test code = 706-2) 0.4 % GRAN MAT x10^3(ANC) (test code = 9120108053) 7.01 10*3/uL 1.88-7.09 IMM GRAN x10^3 (test code = 5499105417) 0.04 10*3/uL 0.00-0.06 LYMPH x10^3 (test code = 731-0) 2.85 10*3/uL 1.32-3.29 MONO x10^3 (test code = 742-7) 0.62 10*3/uL 0.33-0.92 EOS x10^3 (test code = 711-2) 0.18 10*3/uL 0.03-0.39 BASO x10^3 (test code = 704-7) 0.04 10*3/uL 0.01-0.07 Lab Interpretation (test code = 74276-7) [facility]normal [facility] [id number] 02:11:00* Test Item Value Reference Range Interpretation Comme nts POCT PREG (test code = 1605) Negative On board controls acceptable with C Line (test code = 3574) Yes POCT PREG LOT # (test code = 3575) [id number] POCT PREG TEST DATE ( test code = 3576) 2024-09-04 Lab Interpretation (test cod e = 16303-4) Normal [facility]woodTROPONIN [id number] 23:59:14* Test Item Value Reference Range Interpretation Comme nts TROPONIN I (test code = 8640382105) 0.000 ng/mL <=0.034 DARWIN (test code = [...] of biotin. Lab Interpretation (test code = 64335-0) Normal [facility]. METABOLIC PANEL (80857)2023-04-08 23:47:52* Test Item Value Reference Range Interpretation Comme nts NA (test code = 2286928519) 138 mmol/L 135-145 K (test code = 4671009576) 3.4 mmol/L 3.5-5.0 L CL (test code = 2990827913) 103 mmol/L 98-108 CO2 TOTAL (test code = 9869404986) 22 mmol/L 23-31 L AGAP (test code = 4744047446) 13 2-16 BUN (test code = 1717775297) 6 mg/dL 7-23 L GLUCOSE (test code = 2324532588) 106 mg/dL 70-110 CREATININE (test code = 7871914965) 0.91 mg/dL 0.50-1.04 TOTAL BILI (test code = 1495079007) 0.2 mg/dL 0.1-1.1 CALCIUM (test code = 5260989700) 8.7 mg/dL 8.6-10.6 T PROTEIN (test code = 3347842789) 7.4 g/dL 6.3-8.2 ALBUMIN (test code = 1478445237) 4.1 g/dL 3.5-5.0 ALK PHOS (test code = 7127709478) 71 U/L 34-122 ALTv (test code = 1742-6) 28 U/L 5-35 AST(SGOT) (test code = 9158819849) 28 U/L 13-40 eGFR (test code = 1970946110) 67.2 mL/min/1.73m2 DARWIN (test code = DARWIN) [...] imaging tests). Lab Interpretation (test code = 75080-3) [facility]normal [facility]woodMAG[facility]2023-[facility]-02 23:47:52* Test Item Value Reference Range Interpretation Comme nts MAGNESIUM (test code = 1870467986) 2.0 mg/dL 1.7-2.4 Lab Interpretation (test cod e = 09482-7) Normal [facility]2023-[facility]02 23:47:52* Test Item Value Reference Range Interpretation Comme nts LIPASE (test code = 6628975644) 74 U/L 0-220 Lab Interpretation (test cod e = 23269-8) Normal [facility] WITH [id number] 23:36:30* Test Item Value Reference Range Interpretation Comme nts WBC (test code = 6690-2) 9.95 See_Comment [Automated Expert TAa [employer]!] The system which generated this result transmitted reference range: 4.30 - 11.10 10*3/?L. The reference range was not used to interpret this result as normal/abnormal. RBC (test code = 789-8) 5.29 See_Comment H [Automated Expert TAa [employer]!] The system which generated this result transmitted [...] 34.5 g/dL 31.6-35.1 RDW-SD (test code = 22521-8) 39.3 fL 39.0-49.9 RDW-CV (test code = 788-0) 13.6 % 12.0-15.5 PLT (test code = 777-3) 305 See_Comment [Automated messa ge] The system which generated this result transmitted reference range: 166 - 358 10*3/?L. The reference range was not used to interpret this result as normal/abnormal. MPV (test code = 47496-9) 9.6 fL 9.5-12.9 NRBC/100 WBC (test code = 8607209778) 0.0 See_Comment [Automated [employer] ssage] The system which generated this result transmitted reference range: 0.0 - 10.0 /100 WBCs. The reference range was not used to interpret this result as normal/abnormal. NRBC x10^3 (test code = 2530057974) See_Comment [Automated Expert TAa ge] The system which generated this result transmitted reference range: 10*3/?L. The reference range was not used to interpret this result as normal/abnormal. GRAN MAT (NEUT) % (test code = 770-8) 66.5 % IMM GRAN % (test code = 1137381595) 0.30 % LYMPH % (test code = 736-9) 25.3 % MONO % (test code = 5905-5) 5.2 % EOS % (test code = 713-8) 2.3 % BASO % (test code = 706-2) 0.4 % GRAN MAT x10^3(ANC) (test code = 7549657031) 6.61 10*3/uL 1.88-7.09 IMM GRAN x10^3 (test code = 1773315665) 0.03 10*3/uL 0.00-0.06 LYMPH x10^3 (test code = 731-0) 2.52 10*3/uL 1.32-3.29 MONO x10^3 (test code = 742-7) 0.52 10*3/uL 0.33-0.92 EOS x10^3 (test code = 711-2) 0.23 10*3/uL 0.03-0.39 BASO x10^3 (test code = 704-7) 0.04 10*3/uL 0.01-0.07 Lab Interpretation (test code = 05412-4) Abnormal [facility] [id number] 02:51:00* Test Item Value Reference Range Interpretation Comme nts POCT PREG (test code = 1605) Negative On board controls acceptable with C Line (test code = 3574) Yes POCT PREG LOT # (test code = 3575) [id number] POCT PREG TEST DATE ( test code = 3576) 07/10/2024 Lab Interpretation (test cod e = 01463-7) Normal [facility] [id number] 03:26:00* Test Item Value Reference Range Interpretation Comme nts POCT PREG (test code = 1605) Negative On board controls acceptable with C Line (test code = 3574) Yes POCT PREG LOT # (test code = 3575) [id number] POCT PREG TEST DATE ( test code = 3576) Lab Interpretation (test cod e = 66936-4) [facility]:38* Test Item Value Reference Range Interpretation Comme nts LIPASE (test code = 3494626696) 2049 U/L 0-220 H Lab Interpretation (test cod e = 51303-7) Abnormal [facility] WITH [id number] 22:30:10* Test Item Value Reference Range Interpretation [...] 34.6 g/dL 31.6-35.1 RDW-SD (test code = 40758-4) 42.7 fL 39.0-49.9 RDW-CV (test code = 788-0) 14.6 % 12.0-15.5 PLT (test code = 777-3) 331 See_Comment [Automated messa ge] The system which generated this result transmitted reference range: 166 - 358 10*3/?L. The reference range was not used to interpret this result as normal/abnormal. MPV (test code = 02820-1) 9.7 fL 9.5-12.9 NRBC/100 WBC (test code = 4653602649) 0.0 See_Comment [Automated [employer] ssage] The system which generated this result transmitted reference range: 0.0 - 10.0 /100 WBCs. The reference range was not used to interpret this result as normal/abnormal. NRBC x10^3 (test code = 3559032129) See_Comment [Automated messa ge] The system which generated this result transmitted reference range: 10*3/?L. The reference range was not used to interpret this result as normal/abnormal. GRAN MAT (NEUT) % (test code = 770-8) 65.7 % IMM GRAN % (test code = 4993126568) 0.50 % LYMPH % (test code = 736-9) 26.5 % MONO % (test code = 5905-5) 5.4 % EOS % (test code = 713-8) 1.5 % BASO % (test code = 706-2) 0.4 % GRAN MAT x10^3(ANC) (test code = 8031352150) 8.05 10*3/uL 1.88-7.09 H IMM GRAN x10^3 (test code = 3404031627) 0.06 10*3/uL 0.00-0.06 LYMPH x10^3 (test code = 731-0) 3.24 10*3/uL 1.32-3.29 MONO x10^3 (test code = 742-7) 0.66 10*3/uL 0.33-0.92 EOS x10^3 (test code = 711-2) 0.18 10*3/uL 0.03-0.39 BASO x10^3 (test code = 704-7) 0.05 10*3/uL 0.01-0.07 Lab Interpretation (test code = 20852-4) Abnormal [facility]. METABOLIC PANEL (98452)2023-02-15 22:27:47* Test Item Value Reference Range Interpretation Comme nts NA (test code = 5474130685) 138 mmol/L 135-145 K (test code = 7574762940) 3.7 mmol/L 3.5-5.0 CL (test code = 4533299111) 105 mmol/L 98-108 CO2 TOTAL (test code = 5703344259) 23 mmol/L 23-31 AGAP (test code = [id number]) 10 2-16 BUN (test code = 8345925399) 6 mg/dL 7-23 L GLUCOSE (test code = 2125240734) 92 mg/dL 70-110 CREATININE (test code = 5295633750) 0.77 mg/dL 0.50-1.04 TOTAL BILI (test code = 7126556760) 0.7 mg/dL 0.1-1.1 CALCIUM (test code = 1542335423) 9.0 mg/dL 8.6-10.6 T PROTEIN (test code = 9456319055) 7.5 g/dL 6.3-8.2 ALBUMIN (test code = 6058510733) 4.0 g/dL 3.5-5.0 ALK PHOS (test code = 2549023922) 101 U/L 34-122 ALTv (test code = 1742-6) 25 U/L 5-35 AST(SGOT) (test code = 4613659228) 36 U/L 13-40 eGFR (test code = 2237226411) 81.8 mL/min/1.73m2 DARWIN (test code = DARWIN) [...] imaging tests). Lab Interpretation (test code = 60290-8) [id number] 20:56:28* Test Item Value Reference Range Interpretation Comments D-DIMER (test code = 6703822413) 0.44 See_Comment H [Automated message] The system [...] a diagnosis. Lab Interpretation (test code = 38258-0) Abnormal [facility] [id number] 01:15:16* Test Item Value Reference Range Interpretation Comments TROPONIN I (test code = 0304496985) 0.001 ng/mL See_Comment [Automated message] The system [...] of biotin. Lab Interpretation (test code = 04255-5) Normal [facility] [id number] 22:52:31* Test Item Value Reference Range Interpretation Comments TROPONIN I (test code = 5525385954) 0.001 ng/mL See_Comment [Automated message] The system [...] of biotin. Lab Interpretation (test code = 50691-4) Normal [facility] [id number] 22:49:33* Test Item Value Reference Range Interpretation Comme nts NT-proBNP (test code = 8559230432) 145 pg/mL See_Comment H [Automated message] The system which generated this result transmitted reference range: <=125. The reference range was not used to interpret this result as normal/abnormal. DARWIN (test code = DARWIN) Biotin has been reported to cause a negative bias, interpret results relative to patient's use of biotin. Lab Interpretation (test code = 22936-1) [facility] (NA, K, CL, CO2, GLUCOSE, BUN, CREATININE, CA)2022-01-09 22:40:32* Test Item Value Reference Range Interpretation Comme nts NA (test code = 3679596756) 142 mmol/L 135-145 K (test code = 5745660932) 3.3 mmol/L 3.5-5.0 L CL (test code = 3838005081) 109 mmol/L 98-108 H CO2 TOTAL (test code = 0930803635) 22 mmol/L 23-31 L AGAP (test code = 0671525027) 2-16 BUN (test code = 5255783485) 9 mg/dL 7-23 GLUCOSE (test code = 9884620200) 116 mg/dL 70-110 H CREATININE (test code = 6725022048) 0.69 mg/dL 0.50-1.04 CALCIUM (test code = 7879548876) 9.2 mg/dL 8.6-10.6 eGFR (test code = 9334187405) mL/min/1.73m2 DARWIN (test code = DARWIN) Association [...] imaging tests). Lab Interpretation (test code = 64773-6) Abnormal [facility] WITH [id number] 22:29:09* Test Item Value Reference Range Interpretation Comme nts WBC (test code = 6690-2) See_Comment [Proximiant] The system which generated this result transmitted reference range: 4.30 - 11.10 10*3/?L. The reference range was not used to interpret this result as normal/abnormal. RBC (test code = 789-8) See_Comment [Proximiant] The system which generated this result transmitted [...] 34.4 g/dL 31.6-35.1 RDW-SD (test code = 23563-4) 40.7 fL 39.0-49.9 RDW-CV (test code = 788-0) 14.1 % 12.0-15.5 PLT (test code = 777-3) See_Comment [Automated messa ge] The system which generated this result transmitted reference range: 166 - 358 10*3/?L. The reference range was not used to interpret this result as normal/abnormal. MPV (test code = 54748-6) 9.6 fL 9.5-12.9 NRBC/100 WBC (test code = 7749452517) See_Comment [Automated me ssage] The system which generated this result transmitted reference range: 0.0 - 10.0 /100 WBCs. The reference range was not used to interpret this result as normal/abnormal. NRBC x10^3 (test code = 4931639029) <0.01 See_Comment [Automated messa ge] The system which generated this result transmitted reference range: 10*3/?L. The reference range was not used to interpret this result as normal/abnormal. GRAN MAT (NEUT) % (test code = 770-8) 54.7 % IMM GRAN % (test code = 0171018402) 0.40 % LYMPH % (test code = 736-9) 33.8 % MONO % (test code = 5905-5) 7.1 % EOS % (test code = 713-8) 3.3 % BASO % (test code = 706-2) 0.7 % GRAN MAT x10^3(ANC) (test code = 4399830963) 4.87 10*3/uL 1.88-7.09 IMM GRAN x10^3 (test code = 9710781999) 0.04 10*3/uL 0.00-0.06 LYMPH x10^3 (test code = 731-0) 3.01 10*3/uL 1.32-3.29 MONO x10^3 (test code = 742-7) 0.63 10*3/uL 0.33-0.92 EOS x10^3 (test code = 711-2) 0.29 10*3/uL 0.03-0.39 BASO x10^3 (test code = 704-7) 0.06 10*3/uL 0.01-0.07 Lab Interpretation (test code = 19575-8) [facility]normal [facility]wood[facility] [id number] 06:45:45* Test Item Value Reference Range Interpretation Comments TROPONIN I (test code = 6810587430) 0.000 ng/mL See_Comment [Automated message] The system [...] of biotin. Lab Interpretation (test code = 67338-4) Normal [facility]wood[facility]YRO[facility] STIMULATING [id number] 05:00:55 * Test Item Value Reference Range Interpretation Comme nts TSH (test code = 2599588071) See_Comment [Automated Expert TAa CarWoo!] The system which generated this result transmitted reference range: 0.45 - 4.70 mIU/L. The reference range was not used to interpret this result as normal/abnormal. Lab Interpretation (test code = 23333-9) Normal [facility] [id number] 04:47:50* Test Item Value Reference Range Interpretation Comme nts FREE T4 (test code = 9056091206) See_Comment [Automated Expert TAa [employer]!] The system which generated this result transmitted reference range: 0.78 - 2.20 ng/dL:. The reference range was not used to interpret this result as normal/abnormal. Lab Interpretation (test code = 10206-1) Normal [facility] [id number] 04:47:10* Test Item Value Reference Range Interpretation Comme nts FREE T3 (test code = 7230618011) 4.37 pg/mL 2.77-5.27 Lab Interpretation (test cod e = 03184-7) Normal [facility]wood[facility] [id number] 04:42:07* Test Item Value Reference Range Interpretation Comments TROPONIN I (test code = 1457901547) 0.001 ng/mL See_Comment [Automated message] The system [...] of biotin. Lab Interpretation (test code = 50027-5) Normal [facility]. METABOLIC PANEL (89503)2021-12-14 04:30:28* Test Item Value Reference Range Interpretation Comme nts NA (test code = 4164523544) 141 mmol/L 135-145 K (test code = 8809393166) 3.6 mmol/L 3.5-5.0 CL (test code = 6185231744) 111 mmol/L 98-108 H CO2 TOTAL (test code = 6745745898) 19 mmol/L 23-31 L AGAP (test code = 9879183447) 2-16 BUN (test code = 5787035983) 15 mg/dL 7-23 GLUCOSE (test code = 2837120466) 113 mg/dL 70-110 H CREATININE (test code = 8392527279) 1.05 mg/dL 0.50-1.04 H TOTAL BILI (test code = 3051401972) 0.2 mg/dL 0.1-1.1 CALCIUM (test code = 6500802875) 9.8 mg/dL 8.6-10.6 T PROTEIN (test code = 9401862116) 6.8 g/dL 6.3-8.2 ALBUMIN (test code = 5325328078) 4.2 g/dL 3.5-5.0 ALK PHOS (test code = 6291772287) 73 U/L 34-122 ALTv (test code = 1742-6) 16 U/L 5-35 AST(SGOT) (test code = 9604500172) 19 U/L 13-40 eGFR (test code = 1561939987) mL/min/1.73m2 DARWIN (test code = DARWIN) Association [...] imaging tests). Lab Interpretation (test code = 20507-9) [facility]normal [facility] 04:29:48* Test Item Value Reference Range Interpretation Comme [facility] LIPASE (test code = 5517897879) 225 U/L 0-220 H Lab Interpretation (test cod e = 43760-9) [facility]normal [facility] [id number] 04:20:00* Test Item Value Reference Range Interpretation Comme nts POCT PREG (test code = 1605) negative On board controls acceptable with C Line (test code = 3574) present POCT PREG LOT # (test code = 3575) [id number] POCT PREG TEST DATE ( test code = 3576) 2023-05-07 Lab Interpretation (test cod e = 87666-4) Normal [facility] WITH [id number] 04:01:25* Test Item Value Reference Range Interpretation [...] 34.3 g/dL 31.6-35.1 RDW-SD (test code = 10875-1) 39.5 fL 39.0-49.9 RDW-CV (test code = 788-0) 13.6 % 12.0-15.5 PLT (test code = 777-3) See_Comment [Automated messa ge] The system which generated this result transmitted reference range: 166 - 358 10*3/?L. The reference range was not used to interpret this result as normal/abnormal. MPV (test code = 00309-5) 9.9 fL 9.5-12.9 NRBC/100 WBC (test code = 1949094226) See_Comment [Automated me ssage] The system which generated this result transmitted reference range: 0.0 - 10.0 /100 WBCs. The reference range was not used to interpret this result as normal/abnormal. NRBC x10^3 (test code = 2742605042) <0.01 See_Comment [Automated messa ge] The system which generated this result transmitted reference range: 10*3/?L. The reference range was not used to interpret this result as normal/abnormal. GRAN MAT (NEUT) % (test code = 770-8) 51.5 % IMM GRAN % (test code = 9891869389) 0.50 % LYMPH % (test code = 736-9) 35.8 % MONO % (test code = 5905-5) 9.4 % EOS % (test code = 713-8) 2.2 % BASO % (test code = 706-2) 0.6 % GRAN MAT x10^3(ANC) (test code = 4293906634) 5.37 10*3/uL 1.88-7.09 IMM GRAN x10^3 (test code = 3399855011) 0.05 10*3/uL 0.00-0.06 LYMPH x10^3 (test code = 731-0) 3.73 10*3/uL 1.32-3.29 H MONO x10^3 (test code = 742-7) 0.98 10*3/uL 0.33-0.92 H EOS x10^3 (test code = 711-2) 0.23 10*3/uL 0.03-0.39 BASO x10^3 (test code = 704-7) 0.06 10*3/uL 0.01-0.07 Lab Interpretation (test code = 12915-1) [id number] 04:04:13* Test Item Value Reference Range Interpretation Comments TROPONIN I (test code = 2802519059) 0.001 ng/mL See_Comment [Automated message] The system [...] of biotin. Lab Interpretation (test code = 28626-8) Normal [facility] [id number] 02:56:00* Test Item Value Reference Range Interpretation Comme nts POCT PREG (test code = 1605) negative On board controls acceptable with C Line (test code = 3574) present POCT PREG LOT # (test code = 3575) [id number] POCT PREG TEST DATE ( test code = 3576) 2023-04-06 Lab Interpretation (test cod e = 53104-4) Normal [facility] [id number] 02:15:30* Test Item Value Reference Range Interpretation Comments TROPONIN I (test code = 3513582843) 0.000 ng/mL See_Comment [Automated message] The system [...] of biotin. Lab Interpretation (test code = 64616-0) Normal [facility] [id number] 02:12:14* Test Item Value Reference Range Interpretation Comme nts NT-proBNP (test code = 6895537728) 109 pg/mL See_Comment [Automated message] The system which generated this result transmitted reference range: <=125. The reference range was not used to interpret this result as normal/abnormal. DARWIN (test code = DARWIN) Biotin has been reported to cause a negative bias, interpret results relative to patient's use of biotin. Lab Interpretation (test code = 12819-4) Normal [facility]. METABOLIC PANEL (08691)2021-11-12 02:04:12* Test Item Value Reference Range Interpretation Comme nts NA (test code = 0367456645) 140 mmol/L 135-145 K (test code = 0797283627) 4.0 mmol/L 3.5-5.0 CL (test code = 5807156096) 111 mmol/L 98-108 H CO2 TOTAL (test code = 2116025355) 17 mmol/L 23-31 L AGAP (test code = 0075916909) 2-16 BUN (test code = 4641100144) 9 mg/dL 7-23 GLUCOSE (test code = 0902000247) 105 mg/dL 70-110 CREATININE (test code = 3262827044) 0.72 mg/dL 0.50-1.04 TOTAL BILI (test code = 1890881160) 0.4 mg/dL 0.1-1.1 CALCIUM (test code = 9874030690) 9.3 mg/dL 8.6-10.6 T PROTEIN (test code = 9328551629) 6.6 g/dL 6.3-8.2 ALBUMIN (test code = 7524527585) 4.0 g/dL 3.5-5.0 ALK PHOS (test code = 7853164770) 70 U/L 34-122 ALTv (test code = 1742-6) 19 U/L 5-35 AST(SGOT) (test code = 1603715311) 21 U/L 13-40 eGFR (test code = 8756933342) mL/min/1.73m2 DARWIN (test code = DARWIN) Association [...] imaging tests). Lab Interpretation (test code = 26816-3) [facility]normal [facility] 02:03:32* Test Item Value Reference Range Interpretation Comme nts LIPASE (test code = 5981064541) 173 U/L 0-220 Lab Interpretation (test cod e = 42600-5) Normal [facility] WITH [id number] 01:43:53* Test Item Value Reference Range Interpretation Comme nts WBC (test code = 6690-2) See_Comment [Automated Ingenious Med] The system which generated this result transmitted reference range: 4.30 - 11.10 10*3/?L. The reference range was not used to interpret this result as normal/abnormal. RBC (test code = 789-8) See_Comment [Automated Ingenious Med] The system which generated this result transmitted [...] 33.7 g/dL 31.6-35.1 RDW-SD (test code = 76782-1) 41.3 fL 39.0-49.9 RDW-CV (test code = 788-0) 14.3 % 12.0-15.5 PLT (test code = 777-3) See_Comment [Automated messa ge] The system which generated this result transmitted reference range: 166 - 358 10*3/?L. The reference range was not used to interpret this result as normal/abnormal. MPV (test code = 26829-4) 9.7 fL 9.5-12.9 NRBC/100 WBC (test code = 2427671198) See_Comment [Automated VesLabs ssage] The system which generated this result transmitted reference range: 0.0 - 10.0 /100 WBCs. The reference range was not used to interpret this result as normal/abnormal. NRBC x10^3 (test code = 0629125789) <0.01 See_Comment [Automated messa ge] The system which generated this result transmitted reference range: 10*3/?L. The reference range was not used to interpret this result as normal/abnormal. GRAN MAT (NEUT) % (test code = 770-8) 62.6 % IMM GRAN % (test code = 1757849452) 0.50 % LYMPH % (test code = 736-9) 27.0 % MONO % (test code = 5905-5) 6.5 % EOS % (test code = 713-8) 2.9 % BASO % (test code = 706-2) 0.5 % GRAN MAT x10^3(ANC) (test code = 7678657613) 6.30 10*3/uL 1.88-7.09 IMM GRAN x10^3 (test code = 1822659183) 0.05 10*3/uL 0.00-0.06 LYMPH x10^3 (test code = 731-0) 2.71 10*3/uL 1.32-3.29 MONO x10^3 (test code = 742-7) 0.65 10*3/uL 0.33-0.92 EOS x10^3 (test code = 711-2) 0.29 10*3/uL 0.03-0.39 BASO x10^3 (test code = 704-7) 0.05 10*3/uL 0.01-0.07 Lab Interpretation (test code = 96471-7) [facility]normal [facility] [id number] 02:21:00* Test Item Value Reference Range Interpretation Comme nts POCT PREG (test code = 1605) Negative On board controls acceptable with C Line (test code = 3574) Present Lab Interpretation (test cod e = 44392-6) Normal [facility]woodComplete Metabolic [id number] 02:05:50* Test Item Value Reference Range Interpretation Comme nts NA (test code = 9248357120) 137 mmol/L 135-145 K (test code = 2329657089) 3.9 mmol/L 3.5-5.0 CL (test code = 1864666251) 109 mmol/L 98-108 H CO2 TOTAL (test code = 6110849118) 19 mmol/L 23-31 L AGAP (test code = 6960650658) 2-16 BUN (test code = 5645882854) 10 mg/dL 7-23 GLUCOSE (test code = 8257087406) 101 mg/dL 70-110 CREATININE (test code = 5917418248) 0.80 mg/dL 0.50-1.04 TOTAL BILI (test code = 7923772370) 0.3 mg/dL 0.1-1.1 CALCIUM (test code = 9171819468) 8.8 mg/dL 8.6-10.6 T PROTEIN (test code = 0749668803) 6.6 g/dL 6.3-8.2 ALBUMIN (test code = 5180675429) 4.0 g/dL 3.5-5.0 ALK PHOS (test code = 1171068625) 71 U/L 34-122 ALTv (test code = 1742-6) 18 U/L 5-35 AST(SGOT) (test code = 4369011731) 20 U/L 13-40 eGFR (test code = 3693898213) mL/min/1.73m2 DARWIN (test code = DARWIN) Association [...] imaging tests). Lab Interpretation (test code = 08454-1) [facility]normal [facility]woodLip[facility], Zxvhc4949-79-73 02:05:25* Test Item Value Reference Range Interpretation Comme nts LIPASE (test code = 2001787989) 96 U/L 0-220 Lab Interpretation (test cod e = 82752-1) Normal [facility]woodCBC with Mwzplcaudkjm0788-01-09 01:53:06* Test Item Value Reference Range Interpretation Comme nts WBC (test code = 6690-2) See_Comment H [Automated Expert TAa [employer]!] The system which generated this result transmitted reference range: 4.30 - 11.10 10*3/?L. The reference range was not used to interpret this result as normal/abnormal. RBC (test code = 789-8) See_Comment H [Automated Expert TAa [employer]!] The system which generated this result transmitted [...] 34.3 g/dL 31.6-35.1 RDW-SD (test code = 13214-7) 40.5 fL 39.0-49.9 RDW-CV (test code = 788-0) 14.4 % 12.0-15.5 PLT (test code = 777-3) See_Comment [Automated messa ge] The system which generated this result transmitted reference range: 166 - 358 10*3/?L. The reference range was not used to interpret this result as normal/abnormal. MPV (test code = 47452-6) 9.4 fL 9.5-12.9 L NRBC/100 WBC (test code = 7521132713) See_Comment [Automated VesLabs ssage] The system which generated this result transmitted reference range: 0.0 - 10.0 /100 WBCs. The reference range was not used to interpret this result as normal/abnormal. NRBC x10^3 (test code = 3227851680) <0.01 See_Comment [Automated Expert TAa ge] The system which generated this result transmitted reference range: 10*3/?L. The reference range was not used to interpret this result as normal/abnormal. GRAN MAT (NEUT) % (test code = 770-8) 59.8 % IMM GRAN % (test code = 0575135827) 0.40 % LYMPH % (test code = 736-9) 31.0 % MONO % (test code = 5905-5) 6.3 % EOS % (test code = 713-8) 2.0 % BASO % (test code = 706-2) 0.5 % GRAN MAT x10^3(ANC) (test code = 0343072523) 6.73 10*3/uL 1.88-7.09 IMM GRAN x10^3 (test code = 8928215188) 0.05 10*3/uL 0.00-0.06 LYMPH x10^3 (test code = 731-0) 3.50 10*3/uL 1.32-3.29 H MONO x10^3 (test code = 742-7) 0.71 10*3/uL 0.33-0.92 EOS x10^3 (test code = 711-2) 0.23 10*3/uL 0.03-0.39 BASO x10^3 (test code = 704-7) 0.06 10*3/uL 0.01-0.07 Lab Interpretation (test code = 99082-9) Abnormal [facility] Eocr7251-57-72 01:45:00* Test Item Value Reference Range Interpretation Comme nts POCT PREG (test code = 1605) negatibe On board controls acceptable with C Line (test code = 3574) present POCT PREG LOT # (test code = 3575) [id number] POCT PREG TEST DATE ( test code = 3576) 09/04/2022 Lab Interpretation (test cod e = 75830-9) Normal [facility] [id number] 06:35:00* Test Item Value Reference Range Interpretation Comme nts POCT PREG (test code = 1605) negative On board controls acceptable with C Line (test code = 3574) present POCT PREG LOT # (test code = 3575) [id number] POCT PREG TEST DATE ( test code = 3576) Lab Interpretation (test cod e = 97873-9) [id number] 09:09:55* Test Item Value Reference Range Interpretation Comments TROPONIN I (test code = 0689461382) 0.001 ng/mL See_Comment [Automated message] The system [...] of biotin. Lab Interpretation (test code = 40842-7) Normal [facility]-NNELS7219-20-37 07:23:51* Test Item Value Reference Range Interpretation Comments D-DIMER (test code = 4746356649) See_Comment [Automated message] The system which generated [...] a diagnosis. Lab Interpretation (test code = 58237-2) Normal [facility]2021-[facility]-21 06:11:26* Test Item Value Reference Range Interpretation Comme nts LIPASE (test code = 9042881521) 155 U/L 0-220 Lab Interpretation (test cod e = 35268-5) Normal [facility]woodTROP[facility]IN [id number] 06:06:05* Test Item Value Reference Range Interpretation Comments TROPONIN I (test code = 0485369604) 0.002 ng/mL See_Comment [Automated message] The system [...] of biotin. Lab Interpretation (test code = 00864-7) Normal [facility]woodN-[facility]MINAL DQH-[id number] 06:03:04* Test Item Value Reference Range Interpretation Comme nts NT-proBNP (test code = 7485258315) 19 pg/mL See_Comment [Automated message] The system which generated this result transmitted reference range: <=125. The reference range was not used to interpret this result as normal/abnormal. DARWIN (test code = DARWIN) Biotin has been reported to cause a negative bias, interpret results relative to patient's use of biotin. Lab Interpretation (test code = 79871-1) Normal [facility]woodCOMP. METABOLIC PANEL (86045)2021-05-28 05:54:25* Test Item Value Reference Range Interpretation Comme nts NA (test code = 5014043991) 136 mmol/L 135-145 K (test code = 4511029729) 3.2 mmol/L 3.5-5.0 L CL (test code = 4044661600) 109 mmol/L 98-108 H CO2 TOTAL (test code = 2565141243) 16 mmol/L 23-31 L AGAP (test code = 0934047741) 2-16 BUN (test code = 2654875735) 11 mg/dL 7-23 GLUCOSE (test code = 8755918396) 144 mg/dL 70-110 H CREATININE (test code = 9731118608) 0.84 mg/dL 0.50-1.04 TOTAL BILI (test code = 8173816354) 0.2 mg/dL 0.1-1.1 CALCIUM (test code = 3459523914) 9.4 mg/dL 8.6-10.6 T PROTEIN (test code = 1550400596) 6.9 g/dL 6.3-8.2 ALBUMIN (test code = 1472935629) 3.9 g/dL 3.5-5.0 ALK PHOS (test code = 7928704321) 106 U/L 34-122 ALTv (test code = 1742-6) 20 U/L 5-35 AST(SGOT) (test code = 4676441761) 17 U/L 13-40 eGFR (test code = 9628470306) mL/min/1.73m2 DARWIN (test code = DARWIN) Association [...] imaging tests). Lab Interpretation (test code = 71720-8) Abnormal [facility] WITH [id number] 05:40:06* Test Item Value Reference Range Interpretation Comme nts WBC (test code = 6690-2) See_Comment [Automated In[employer] Med] The system which generated this result transmitted [...] 33.3 g/dL 31.6-35.1 RDW-SD (test code = 83853-5) 39.7 fL 39.0-49.9 RDW-CV (test code = 788-0) 13.6 % 12.0-15.5 PLT (test code = 777-3) See_Comment [Automated Expert TAa ge] The system which generated this result transmitted reference range: 166 - 358 10*3/?L. The reference range was not used to interpret this result as normal/abnormal. MPV (test code = 38397-3) 9.5 fL 9.5-12.9 NRBC/100 WBC (test code = 4285475642) See_Comment [Automated VesLabs ssage] The system which generated this result transmitted reference range: 0.0 - 10.0 /100 WBCs. The reference range was not used to interpret this result as normal/abnormal. NRBC x10^3 (test code = 2109188565) <0.01 See_Comment [Automated messa ge] The system which generated this result transmitted reference range: 10*3/?L. The reference range was not used to interpret this result as normal/abnormal. GRAN MAT (NEUT) % (test code = 770-8) 53.7 % IMM GRAN % (test code = 9620503850) 0.50 % LYMPH % (test code = 736-9) 36.0 % MONO % (test code = 5905-5) 6.3 % EOS % (test code = 713-8) 2.8 % BASO % (test code = 706-2) 0.7 % GRAN MAT x10^3(ANC) (test code = 2901578074) 5.38 10*3/uL 1.88-7.09 IMM GRAN x10^3 (test code = 6785878953) 0.05 10*3/uL 0.00-0.06 LYMPH x10^3 (test code = 731-0) 3.60 10*3/uL 1.32-3.29 H MONO x10^3 (test code = 742-7) 0.63 10*3/uL 0.33-0.92 EOS x10^3 (test code = 711-2) 0.28 10*3/uL 0.03-0.39 BASO x10^3 (test code = 704-7) 0.07 10*3/uL 0.01-0.07 Lab Interpretation (test code = 82442-9) [facility] MSAG0812-29-26 05:32:00* Test Item Value Reference Range Interpretation Comme nts POCT PREG (test code = 1605) negative On board controls acceptable with C Line (test code = 3574) present POCT PREG LOT # (test code = 3575) [id number] POCT PREG TEST DATE ( test code = 3576) 08/07/2022 Lab Interpretation (test cod e = 15273-4) [facility]woodTrop[facility] R5946-77-25 11:13:57* Test Item Value Reference Range Interpretation Comments TROPONIN I (test code = 2539613577) 0.002 ng/mL See_Comment [Automated message] The system [...] of biotin. Lab Interpretation (test code = 24885-8) Normal [facility] Metabolic Panel (NA, K, CL, CO2, GLUCOSE, BUN, CREATININE, CA)2021-04-08 11:04:34* Test Item Value Reference Range Interpretation Comme nts NA (test code = 1646678338) 140 mmol/L 135-145 K (test code = 6506094809) 3.6 mmol/L 3.5-5.0 CL (test code = 3026679503) 111 mmol/L 98-108 H CO2 TOTAL (test code = 0858666928) 22 mmol/L 23-31 L AGAP (test code = 9490828894) 2-16 BUN (test code = 9972661639) 10 mg/dL 7-23 GLUCOSE (test code = 3672245813) 104 mg/dL 70-110 CREATININE (test code = 7175429998) 0.70 mg/dL 0.50-1.04 CALCIUM (test code = 9594323626) 8.7 mg/dL 8.6-10.6 eGFR (test code = 4586190832) mL/min/1.73m2 DARWIN (test code = DARWIN) Association [...] imaging tests). Lab Interpretation (test code = 29890-4) Abnormal [facility] with Tzavpuegurzh6228-18-92 10:46:50* Test Item Value Reference Range Interpretation Comme nts WBC (test code = 6690-2) See_Comment [Automated In[employer] Med] The system which generated this result transmitted reference range: 4.30 - 11.10 10*3/?L. The reference range was not used to interpret this result as normal/abnormal. RBC (test code = 789-8) See_Comment [Automated In[employer] Med] The system which generated this result transmitted [...] 33.5 g/dL 31.6-35.1 RDW-SD (test code = 22385-0) 42.0 fL 39.0-49.9 RDW-CV (test code = 788-0) 14.1 % 12.0-15.5 PLT (test code = 777-3) See_Comment [Automated [employer] Med] The system which generated this result transmitted reference range: 166 - 358 10*3/?L. The reference range was not used to interpret this result as normal/abnormal. MPV (test code = 79585-5) 10.0 fL 9.5-12.9 NRBC/100 WBC (test code = 2100988745) See_Comment [Automated me ssage] The system which generated this result transmitted reference range: 0.0 - 10.0 /100 WBCs. The reference range was not used to interpret this result as normal/abnormal. NRBC x10^3 (test code = 1190754772) <0.01 See_Comment [Automated me ssage] The system which generated this result transmitted reference range: 10*3/?L. The reference range was not used to interpret this result as normal/abnormal. GRAN MAT (NEUT) % (test code = 770-8) 59.1 % IMM GRAN % (test code = 4144812545) 0.70 % LYMPH % (test code = 736-9) 28.2 % MONO % (test code = 5905-5) 8.5 % EOS % (test code = 713-8) 3.0 % BASO % (test code = 706-2) 0.5 % GRAN MAT x10^3(ANC) (test code = 9309576188) 3.61 10*3/uL 1.88-7.09 IMM GRAN x10^3 (test code = 3827838290) 0.04 10*3/uL 0.00-0.06 LYMPH x10^3 (test code = 731-0) 1.72 10*3/uL 1.32-3.29 MONO x10^3 (test code = 742-7) 0.52 10*3/uL 0.33-0.92 EOS x10^3 (test code = 711-2) 0.18 10*3/uL 0.03-0.39 BASO x10^3 (test code = 704-7) 0.03 10*3/uL 0.01-0.07 [facility] [id number] 05:54:48* Test Item Value Reference Range Interpretation Comments TROPONIN I (test code = 5826984600) 0.002 ng/mL See_Comment [Automated message] The system [...] of biotin. Lab Interpretation (test code = 58949-9) [facility]wood[facility]yroid [facility] H[facility] (TSH)2021-04-08 00:51:16* Test Item Value Reference Range Interpretation Comme nts TSH (test code = 9847202005) See_Comment [Automated [employer] Med] The system which generated this result transmitted reference range: 0.45 - 4.70 mIU/L. The reference range was not used to interpret this result as normal/abnormal. Lab Interpretation (test code = 39580-6) Normal [facility]woodGlycosylated Hemoglobin (A1C)2021-04-08 00:26:53* Test Item Value Reference Range Interpretation Comme nts HGB A1C (test code = 4548-4) 5.5 % 4.0-5.7 DARWIN (test code = DARWIN) Reference RangesNormal: <5.7%Prediabetes: 5.7 - 6.4%Diabetes: > 6.5% Lab Interpretation (test code = 80519-6) Normal [facility]wood[facility]id [facility] (Total Cholesterol, Triglycerides, HDL)2021-04-08 00:20:12* Test Item Value Reference Range Interpretation Comme nts CHOL (test code = 7433722252) 223 mg/dL 120-200 H HDL (test code = 0364382578) 35 mg/dL >50 L HDLC RATIO (test code = 7111009485) See_Comment H [Automated In[employer] Med] The system which generated this result transmitted reference range: <=4.5. The reference range was not used to interpret this result as normal/abnormal. TRIG (test code = 0608231462) 223 mg/dL 30-170 H LDL CHOL (test code = 33282-5) 143 mg/dL See_Comment [Automated [employer] Med] The system which generated this result transmitted reference range: <=160. The reference range was not used to interpret this result as normal/abnormal. VLDL (test code = 4408658163) 45 mg/dL 5-60 Lab Interpretation (test code = 22108-5) Abnormal [facility] KingwoodMagnesium Pmerm5491-06-81 00:20:07* Test Item Value Reference Range Interpretation Comme nts MAGNESIUM (test code = 6294044715) 1.7 mg/dL 1.7-2.4 Lab Interpretation (test cod e = 07346-4) Normal [facility]woodCOMP. METABOLIC PANEL (73248)2021-04-07 23:04:13* Test Item Value Reference Range Interpretation Comme nts NA (test code = 3212415089) 139 mmol/L 135-145 K (test code = 0266735564) 3.4 mmol/L 3.5-5.0 L CL (test code = 4983884318) 109 mmol/L 98-108 H CO2 TOTAL (test code = 5435887881) 22 mmol/L 23-31 L AGAP (test code = 0395552162) 2-16 BUN (test code = 4570250777) 10 mg/dL 7-23 GLUCOSE (test code = 2256883104) 97 mg/dL 70-110 CREATININE (test code = 8441326381) 0.84 mg/dL 0.50-1.04 TOTAL BILI (test code = 3500614296) 0.3 mg/dL 0.1-1.1 CALCIUM (test code = 5782278105) 9.2 mg/dL 8.6-10.6 T PROTEIN (test code = 1877345386) 6.6 g/dL 6.3-8.2 ALBUMIN (test code = 3315384888) 3.8 g/dL 3.5-5.0 ALK PHOS (test code = 1432379041) 69 U/L 34-122 ALTv (test code = 1742-6) 18 U/L 5-35 AST(SGOT) (test code = 7251101552) 19 U/L 13-40 eGFR (test code = 2243534311) mL/min/1.73m2 DARWIN (test code = DARWIN) Association [...] imaging tests). Lab Interpretation (test code = 73771-2) Abnormal [facility]TRPR[facility] [id number] 22:33:04* Test Item Value Reference Range Interpretation Comments TROPONIN I (test code = 6612522050) 0.001 ng/mL See_Comment [Automated message] The system [...] of biotin. Lab Interpretation (test code = 06300-9) Normal [facility] KingwoodN-TERMINAL DTK-[id number] 22:30:05* Test Item Value Reference Range Interpretation Comme nts NT-proBNP (test code = 1093004864) 352 pg/mL See_Comment H [Automated message] The system which generated this result transmitted reference range: <=125. The reference range was not used to interpret this result as normal/abnormal. DARWIN (test code = DARWIN) Biotin has been reported to cause a negative bias, interpret results relative to patient's use of biotin. Lab Interpretation (test code = 25469-0) Abnormal [facility]woodACTIVATED PARTIAL THRMPLAS [id number] 22:28:48* Test Item Value Reference Range Interpretation [...] 30 seconds. Lab Interpretation (test code = 01517-7) Normal [facility] KingwoodPROTHROMBIN TIME / [id number] 22:26:44* Test Item Value Reference Range Interpretation [...] the indications. Lab Interpretation (test code = 02272-5) Normal [facility] KingwoodLIPASE2021-10-01 22:20:05* Test Item Value Reference Range Interpretation Comme nts LIPASE (test code = 8440478545) 66 U/L 0-220 Lab Interpretation (test cod e = 43545-3) Normal [facility] KingwoodCBC WITH [id number] 22:07:01* Test Item Value Reference Range Interpretation [...] 33.2 g/dL 31.6-35.1 RDW-SD (test code = 42790-8) 41.6 fL 39.0-49.9 RDW-CV (test code = 788-0) 14.1 % 12.0-15.5 PLT (test code = 777-3) See_Comment [Automated Expert TAa ge] The system which generated this result transmitted reference range: 166 - 358 10*3/?L. The reference range was not used to interpret this result as normal/abnormal. MPV (test code = 43582-9) 9.2 fL 9.5-12.9 L NRBC/100 WBC (test code = 1567672067) See_Comment [Automated [employer] ssage] The system which generated this result transmitted reference range: 0.0 - 10.0 /100 WBCs. The reference range was not used to interpret this result as normal/abnormal. NRBC x10^3 (test code = 3116766447) <0.01 See_Comment [Automated messa ge] The system which generated this result transmitted reference range: 10*3/?L. The reference range was not used to interpret this result as normal/abnormal. GRAN MAT (NEUT) % (test code = 770-8) 61.6 % IMM GRAN % (test code = 9215826737) 0.60 % LYMPH % (test code = 736-9) 28.7 % MONO % (test code = 5905-5) 4.9 % EOS % (test code = 713-8) 3.7 % BASO % (test code = 706-2) 0.5 % GRAN MAT x10^3(ANC) (test code = 5708755741) 6.24 10*3/uL 1.88-7.09 IMM GRAN x10^3 (test code = 8738935126) 0.06 10*3/uL 0.00-0.06 LYMPH x10^3 (test code = 731-0) 2.90 10*3/uL 1.32-3.29 MONO x10^3 (test code = 742-7) 0.50 10*3/uL 0.33-0.92 EOS x10^3 (test code = 711-2) 0.37 10*3/uL 0.03-0.39 BASO x10^3 (test code = 704-7) 0.05 10*3/uL 0.01-0.07 Lab Interpretation (test code = 59041-4) Abnormal [facility]woodURINALYSIS2021-07-08 08:49:55* Test Item Value Reference Range Interpretation Comme nts APPEARANCE (test code = 9655007485) Cloudy Clear A COLOR (test code = 4898430419) Yellow Yellow PH (test code = 6314594675) 4.8-8.0 SP GRAVITY (test code = 9798382324) 1.003-1.030 GLU U QUAL (test code = 3853261830) Normal Normal BLOOD (test code = 4042032807) Negative Negative KETONES (test code = 3718039098) Negative Negative PROTEIN (test code = 2887-8) Negative Negative UROBILIN (test code = 2792726160) Normal Normal BILIRUBIN (test code = 0109044651) 2 mg/dL Negative A NITRITE (test code = 5545945853) Negative Negative LEUK MARC (test code = 3176515582) 75/uL Negative A RBC/HPF (test code = 0502283220) See_Comment H [Automated Expert TAa ge] The system which generated this result transmitted reference range: 0 - 3 HPF. The reference range was not used to interpret this result as normal/abnormal. WBC/HPF (test code = 2452414031) See_Comment H [Automated messa ge] The system which generated this result transmitted reference range: 0 - 5 HPF. The reference range was not used to interpret this result as normal/abnormal. BACTERIA (test code = 5748180801) Moderate Negative A MUCOUS (test code = 5870283196) Slight Negative LPF A SQ EPITH (test code = 4025885576) HPF YEAST BUD (test code = 3684286220) See_Comment H [Automated messa ge] The system which generated this result transmitted reference range: <=1 HPF. The reference range was not used to interpret this result as normal/abnormal. Ictotest (test code = 7692882257) Negative Lab Interpretation (test code = 07680-8) Abnormal [facility]. METABOLIC PANEL (37105)2021-01-12 08:49:44* Test Item Value Reference Range Interpretation Comme nts NA (test code = 4260552478) 137 mmol/L 135-145 K (test code = 1940514165) 4.6 mmol/L 3.5-5.0 CL (test code = 2043237828) 108 mmol/L 98-108 CO2 TOTAL (test code = 2341613580) 21 mmol/L 23-31 L AGAP (test code = 0146195981) 2-16 BUN (test code = 2503836297) 19 mg/dL 7-23 GLUCOSE (test code = 9256506098) 107 mg/dL 70-110 CREATININE (test code = 9852547051) 0.63 mg/dL 0.50-1.04 TOTAL BILI (test code = 4635933610) 0.4 mg/dL 0.1-1.1 CALCIUM (test code = 5516334610) 9.2 mg/dL 8.6-10.6 T PROTEIN (test code = 8271429531) 7.4 g/dL 6.3-8.2 ALBUMIN (test code = 7499737081) 4.2 g/dL 3.5-5.0 ALK PHOS (test code = 1403689452) 179 U/L 34-122 H ALTv (test code = 1742-6) 113 U/L 5-35 H AST(SGOT) (test code = 7187218076) 38 U/L 13-40 eGFR (test code = 2916121567) mL/min/1.73m2 DARWIN (test code = DARWIN) Association [...] imaging tests). Lab Interpretation (test code = 18382-1) Abnormal [facility] WITH [id number] 08:11:02* Test Item Value Reference Range Interpretation Comme nts WBC (test code = 6690-2) See_Comment H [Automated [employer] Med] The system which generated this result transmitted reference range: 4.30 - 11.10 10*3/?L. The reference range was not used to interpret this result as normal/abnormal. RBC (test code = 789-8) See_Comment [Automated Expert TAa [employer]!] The system which generated this result transmitted [...] 33.3 g/dL 31.6-35.1 RDW-SD (test code = 90036-7) 41.6 fL 39.0-49.9 RDW-CV (test code = 788-0) 14.0 % 12.0-15.5 PLT (test code = 777-3) See_Comment [Automated Expert TAa ge] The system which generated this result transmitted reference range: 166 - 358 10*3/?L. The reference range was not used to interpret this result as normal/abnormal. MPV (test code = 71579-7) 9.5 fL 9.5-12.9 NRBC/100 WBC (test code = 7658999368) See_Comment [Automated [employer] ssage] The system which generated this result transmitted reference range: 0.0 - 10.0 /100 WBCs. The reference range was not used to interpret this result as normal/abnormal. NRBC x10^3 (test code = 2484089286) <0.01 See_Comment [Automated Expert TAa ge] The system which generated this result transmitted reference range: 10*3/?L. The reference range was not used to interpret this result as normal/abnormal. GRAN MAT (NEUT) % (test code = 770-8) 68.0 % IMM GRAN % (test code = 6270778935) 0.80 % LYMPH % (test code = 736-9) 23.6 % MONO % (test code = 5905-5) 5.1 % EOS % (test code = 713-8) 2.1 % BASO % (test code = 706-2) 0.4 % GRAN MAT x10^3(ANC) (test code = 8575808308) 8.86 10*3/uL 1.88-7.09 H IMM GRAN x10^3 (test code = 0293316822) 0.11 10*3/uL 0.00-0.06 H LYMPH x10^3 (test code = 731-0) 3.07 10*3/uL 1.32-3.29 MONO x10^3 (test code = 742-7) 0.66 10*3/uL 0.33-0.92 EOS x10^3 (test code = 711-2) 0.27 10*3/uL 0.03-0.39 BASO x10^3 (test code = 704-7) 0.05 10*3/uL 0.01-0.07 Lab Interpretation (test code = 92075-5) Abnormal [facility]woodPOCT [id number] 08:02:00* Test Item Value Reference Range Interpretation Comme nts POCT PREG (test code = 1605) negative On board controls acceptable with C Line (test code = 3574) positive POCT PREG LOT # (test code = 3575) [id number] POCT PREG TEST DATE ( test code = 3576) 07/07/2022 Lab Interpretation (test cod e = 66102-0) Normal [facility] KingwoodTROPONIN [id number] 01:55:05* Test Item Value Reference Range Interpretation Comme nts TROPONIN I (test code = 9457022801) 0.000 ng/mL See_Comment [Automated message] The system [...] biotin. ? Lab Interpretation (test code = 36190-6) Normal [facility] 1 [id number] 23:41:46No radiographic evidence of an acute cardiopulmonary process. RL: 2109AFC: [id number] EXAM: XR CHEST 1 VW ORDERING PROVIDER: [...] evidence of an acute cardiopulmonary process.RL: 2109AFC: 29002 [facility] [id number] 23:07:21* Test Item Value Reference Range Interpretation Comme nts TROPONIN I (test code = 7128514755) 0.000 ng/mL See_Comment [Automated message] The system [...] biotin. ? Lab Interpretation (test code = 82071-1) Normal [facility]woodN-TERMINAL [id number]-[id number] 23:04:20* Test Item Value Reference Range Interpretation Comme nts NT-proBNP (test code = 8333588406) 14 pg/mL See_Comment [Automated message] The system which generated this result transmitted reference range: <=125. The reference range was not used to interpret this result as normal/abnormal. DARWIN (test code = DARWIN) Biotin has been reported to cause a negative bias, interpret results relative to patient's use of biotin. Lab Interpretation (test code = 35671-0) Normal [facility] KingwoodHepatic Function Panel (ALB, T.PRO, BILI T, BU/BC, ALT, AST, ALK PHOS)2020-12-10 22:58:16* Test Item Value Reference Range Interpretation Comme nts TOTAL BILI (test code = 3849889826) 0.5 mg/dL 0.1-1.1 BILI UNCON (test code = 0242888971) 0.3 mg/dL 0.1-1.1 BILI CONJ (test code = 8006298933) 0.0 mg/dL 0.0-0.3 T PROTEIN (test code = 3544693554) 8.1 g/dL 6.3-8.2 ALBUMIN (test code = 3138767474) 4.7 g/dL 3.5-5.0 ALK PHOS (test code = 2272450171) 104 U/L 34-122 ALTv (test code = 1742-6) 18 U/L 5-35 AST(SGOT) (test code = 1447754887) 23 U/L 13-40 Lab Interpretation (test cod e = 95131-2) Normal [facility] Metabolic Panel (NA, K, CL, CO2, GLUCOSE, BUN, CREATININE, CA)2020-12-10 22:57:56* Test Item Value Reference Range Interpretation Comme nts NA (test code = 0802714955) 135 mmol/L 135-145 K (test code = 7051764913) 3.7 mmol/L 3.5-5.0 CL (test code = 7411225788) 105 mmol/L 98-108 CO2 TOTAL (test code = 0970408678) 18 mmol/L 23-31 L AGAP (test code = 2785578511) 2-16 BUN (test code = 1609985455) 14 mg/dL 7-23 GLUCOSE (test code = 0080296001) 108 mg/dL 70-110 CREATININE (test code = 6122553958) 0.56 mg/dL 0.50-1.04 CALCIUM (test code = 9246424339) 9.8 mg/dL 8.6-10.6 eGFR (test code = 0083929250) mL/min/1.73m2 DARWIN (test code = DARWIN) Association [...] imaging tests). Lab Interpretation (test code = 54005-0) Abnormal [facility] KingwoodLipase Zadjm9137-98-71 22:57:56* Test Item Value Reference Range Interpretation Comme nts LIPASE (test code = 4411026366) 122 U/L 0-220 Lab Interpretation (test cod e = 80419-8) Normal [facility] KingwoodD-KNFMY1135-28-32 22:52:34* Test Item Value Reference Range Interpretation Comments D-DIMER (test code = 4738499131) See_Comment [Automated message] The system which generated [...] a diagnosis. Lab Interpretation (test code = 52003-6) Normal [facility] KingwoodUrinalysis2021-06-05 22:52:29* Test Item Value Reference Range Interpretation Comme nts APPEARANCE (test code = 7686915438) Hazy Clear A COLOR (test code = 3432164355) Yellow Yellow PH (test code = 7677121444) 4.8-8.0 SP GRAVITY (test code = 4439822702) 1.003-1.030 GLU U QUAL (test code = 1168979539) Normal Normal BLOOD (test code = 4234442371) Negative Negative KETONES (test code = 1331499000) Negative Negative PROTEIN (test code = 2887-8) Negative Negative UROBILIN (test code = 3215015959) Normal Normal BILIRUBIN (test code = 3441458687) 2 mg/dL Negative A NITRITE (test code = 0370924904) Negative Negative LEUK MARC (test code = 8086380027) 25/uL Negative A RBC/HPF (test code = 3752219685) See_Comment [Automated Expert TAa ge] The system which generated this result transmitted reference range: 0 - 3 HPF. The reference range was not used to interpret this result as normal/abnormal. WBC/HPF (test code = 4532028497) See_Comment [Automated Expert TAa ge] The system which generated this result transmitted reference range: 0 - 5 HPF. The reference range was not used to interpret this result as normal/abnormal. BACTERIA (test code = 1016502099) Few Negative A MUCOUS (test code = 3488766389) Slight Negative LPF A SQ EPITH (test code = 8486821703) HPF Lab Interpretation (test code = 02952-7) Abnormal [facility] with Oejjhynsmobw5809-77-89 22:45:56* Test Item Value Reference Range Interpretation [...] 33.5 g/dL 31.6-35.1 RDW-SD (test code = 27894-1) 40.5 fL 39.0-49.9 RDW-CV (test code = 788-0) 13.3 % 12.0-15.5 PLT (test code = 777-3) See_Comment H [Automated message] The system which generated this result transmitted reference range: 166 - 358 10*3/?L. The reference range was not used to interpret this result as normal/abnormal. MPV (test code = 63831-1) 9.2 fL 9.5-12.9 L NRBC/100 WBC (test code = 0639462571) See_Comment [Automated message] The system which generated this result transmitted reference range: 0.0 - 10.0 /100 WBCs. The reference range was not used to interpret this result as normal/abnormal. NRBC x10^3 (test code = 1977981454) <0.01 See_Comment [Automated message] The system which generated this result transmitted reference range: 10*3/?L. The reference range was not used to interpret this result as normal/abnormal. GRAN MAT (NEUT) % (test code = 770-8) 73.4 % IMM GRAN % (test code = 5189947964) 0.50 % LYMPH % (test code = 736-9) 17.5 % MONO % (test code = 5905-5) 6.5 % EOS % (test code = 713-8) 1.6 % BASO % (test code = 706-2) 0.5 % GRAN MAT x10^3(ANC) (test code = 9685509259) 10.21 10*3/uL 1.88-7.09 H IMM GRAN x10^3 (test code = 5193197023) 0.07 10*3/uL 0.00-0.06 H LYMPH x10^3 (test code = 731-0) 2.44 10*3/uL 1.32-3.29 MONO x10^3 (test code = 742-7) 0.90 10*3/uL 0.33-0.92 EOS x10^3 (test code = 711-2) 0.22 10*3/uL 0.03-0.39 BASO x10^3 (test code = 704-7) 0.07 10*3/uL 0.01-0.07 Lab Interpretation (test code = 76390-4) [facility]normal [facility]woodPOCT [id number] 22:32:00* Test Item Value Reference Range Interpretation Comme nts POCT PREG (test code = 1605) negative On board controls acceptable with C Line (test code = 3574) present POCT PREG LOT # (test code = 3575) [id number] POCT PREG TEST DATE ( test code = 3576) 06/06/2022 Lab Interpretation (test cod e = 68461-3) Normal [facility] KingwoodUrinalysis2021-05-30 21:34:43* Test Item Value Reference Range Interpretation Comme nts APPEARANCE (test code = 7226886804) Clear Clear COLOR (test code = 0104458975) Yellow Yellow PH (test code = 4092715461) 4.8-8.0 SP GRAVITY (test code = 6168147622) 1.003-1.030 GLU U QUAL (test code = 1464211928) Normal Normal BLOOD (test code = 5895322044) Negative Negative KETONES (test code = 3542504436) Negative Negative PROTEIN (test code = 2887-8) Negative Negative UROBILIN (test code = 7222264675) Normal Normal BILIRUBIN (test code = 5533329999) Negative Negative NITRITE (test code = 8216854842) Negative Negative LEUK MARC (test code = 9271869353) Negative Negative RBC/HPF (test code = 9464015880) See_Comment [Automated Expert TAa ge] The system which generated this result transmitted reference range: 0 - 3 HPF. The reference range was not used to interpret this result as normal/abnormal. WBC/HPF (test code = 2503894387) <1 See_Comment [Automated Expert TAa ge] The system which generated this result transmitted reference range: 0 - 5 HPF. The reference range was not used to interpret this result as normal/abnormal. BACTERIA (test code = 2356834643) Negative Negative MUCOUS (test code = 2513525577) Slight Negative LPF A SQ EPITH (test code = 8363277474) HPF Lab Interpretation (test code = 54831-3) Abnormal [facility]woodPOCT Clqx2453-41-09 21:18:00* Test Item Value Reference Range Interpretation Comme nts POCT PREG (test code = 1605) negative On board controls acceptable with C Line (test code = 3574) present POCT PREG LOT # (test code = 3575) [id number] POCT PREG TEST DATE ( test code = 3576) 06/06/2022 Lab Interpretation (test cod e = 02608-5) Normal [facility] KingwoodXR ANKLE 3+ VW [id number] 21:11:00No acute bony abnormality. Preliminary Report Dictated [...] this study and agree with the abovereport.[facility] KingwoodTroponin [id number] 20:59:44* Test Item Value Reference Range Interpretation Comme nts TROPONIN I (test code = 8906001537) 0.000 ng/mL See_Comment [Automated message] The system [...] biotin. ? Lab Interpretation (test code = 86055-0) Normal [facility] KingwoodLipase Edxwd6378-51-87 20:48:20* Test Item Value Reference Range Interpretation Comme nts LIPASE (test code = 5212278101) 96 U/L 0-220 Lab Interpretation (test cod e = 54341-6) Normal [facility] KingwoodBasi Metabolic Panel (NA, K, CL, CO2, GLUCOSE, BUN, CREATININE, CA)2020-12-04 20:48:20* Test Item Value Reference Range Interpretation Comme nts NA (test code = 6408894287) 138 mmol/L 135-145 K (test code = 5449515032) 3.8 mmol/L 3.5-5.0 CL (test code = 3889466416) 108 mmol/L 98-108 CO2 TOTAL (test code = 9387626846) 21 mmol/L 23-31 L AGAP (test code = 5971048851) 2-16 BUN (test code = 1976181781) 13 mg/dL 7-23 GLUCOSE (test code = 1472574303) 107 mg/dL 70-110 CREATININE (test code = 9911802234) 0.66 mg/dL 0.50-1.04 CALCIUM (test code = 8390799688) 9.3 mg/dL 8.6-10.6 eGFR (test code = 6837627317) mL/min/1.73m2 DARWIN (test code = DARWIN) Association [...] imaging tests). Lab Interpretation (test code = 81967-6) Abnormal [facility] KingwoodHepatic Function Panel (ALB, T.PRO, BILI T, BU/BC, ALT, AST, ALK PHOS)2020-12-04 20:48:20* Test Item Value Reference Range Interpretation Comme nts TOTAL BILI (test code = 2705005391) 0.3 mg/dL 0.1-1.1 BILI UNCON (test code = 5801239197) 0.1 mg/dL 0.1-1.1 BILI CONJ (test code = 0120747341) 0.0 mg/dL 0.0-0.3 T PROTEIN (test code = 4212681170) 7.0 g/dL 6.3-8.2 ALBUMIN (test code = 0891628543) 4.0 g/dL 3.5-5.0 ALK PHOS (test code = 8278991359) 114 U/L 34-122 ALTv (test code = 1742-6) 30 U/L 5-35 AST(SGOT) (test code = 4732012718) 23 U/L 13-40 Lab Interpretation (test cod e = 46384-1) Normal [facility] with Ubnglxynmdqy8796-99-62 20:35:01* Test Item Value Reference Range Interpretation [...] 34.0 g/dL 31.6-35.1 RDW-SD (test code = 23761-0) 39.8 fL 39.0-49.9 RDW-CV (test code = 788-0) 12.9 % 12.0-15.5 PLT (test code = 777-3) See_Comment [Automated messa ge] The system which generated this result transmitted reference range: 166 - 358 10*3/?L. The reference range was not used to interpret this result as normal/abnormal. MPV (test code = 85118-1) 9.3 fL 9.5-12.9 L NRBC/100 WBC (test code = 4267802632) See_Comment [Automated [employer] ssage] The system which generated this result transmitted reference range: 0.0 - 10.0 /100 WBCs. The reference range was not used to interpret this result as normal/abnormal. NRBC x10^3 (test code = 0553531230) <0.01 See_Comment [Automated messa ge] The system which generated this result transmitted reference range: 10*3/?L. The reference range was not used to interpret this result as normal/abnormal. GRAN MAT (NEUT) % (test code = 770-8) 71.5 % IMM GRAN % (test code = 5449189466) 0.30 % LYMPH % (test code = 736-9) 19.8 % MONO % (test code = 5905-5) 6.2 % EOS % (test code = 713-8) 1.8 % BASO % (test code = 706-2) 0.4 % GRAN MAT x10^3(ANC) (test code = 9137020315) 6.79 10*3/uL 1.88-7.09 IMM GRAN x10^3 (test code = 0836013445) 0.03 10*3/uL 0.00-0.06 LYMPH x10^3 (test code = 731-0) 1.88 10*3/uL 1.32-3.29 MONO x10^3 (test code = 742-7) 0.59 10*3/uL 0.33-0.92 EOS x10^3 (test code = 711-2) 0.17 10*3/uL 0.03-0.39 BASO x10^3 (test code = 704-7) 0.04 10*3/uL 0.01-0.07 Lab Interpretation (test code = 48613-4) [facility]2020-[facility]-04 02:54:38* Test Item Value Reference Range Interpretation Comme nts AMPHET (test code = 9589312983) Negative Negative Cocaine Metabolite (test code = 3541131214) Negative Negative OPIATES (test code = 9437983274) Presumptive Positive Negative A THC (test code = 8508294686) Negative Negative DARWIN (test code = DARWIN) Urine Drug Cutoff Ranges Amphetamine: ? 1,000 ng/mLCocaine: ? 150 ng/mLOpiates: ? 300 ng/mLCannabinoids: ?50 ng/mL The results are to be used only for medical (i.e., treatment) purposes. Unconfirmed screening results must not be used for non-medical purposes (e.g., employment testing, legal testing). Lab Interpretation (test code = 02998-2) Abnormal [facility]woodTROP[facility] [id number] 02:51:11* Test Item Value Reference Range Interpretation Comme nts TROPONIN I (test code = 9477019294) 0.001 ng/mL See_Comment [Automated message] The system [...] biotin. ? Lab Interpretation (test code = 05939-8) Normal [facility]woodaPTT2021-04-30 02:41:10* Test Item Value Reference Range Interpretation [...] 30 seconds. Lab Interpretation (test code = 12470-2) Normal [facility]2021-[facility]-30 02:40:40* Test Item Value Reference Range Interpretation Comme nts APPEARANCE (test code = 0843985494) Clear Clear COLOR (test code = 0390921728) Yellow Yellow PH (test code = 1137653357) 4.8-8.0 SP GRAVITY (test code = 2926714492) 1.003-1.030 GLU U QUAL (test code = 7510680523) Normal Normal BLOOD (test code = 2309185357) Negative Negative KETONES (test code = 5605559486) Negative Negative PROTEIN (test code = 2887-8) Negative Negative UROBILIN (test code = 9543148684) Normal Normal BILIRUBIN (test code = 9920477925) Negative Negative NITRITE (test code = 2661885475) Negative Negative LEUK MARC (test code = 2721042682) Negative Negative RBC/HPF (test code = 2920112974) <1 See_Comment [Automated messa ge] The system which generated this result transmitted reference range: 0 - 3 HPF. The reference range was not used to interpret this result as normal/abnormal. WBC/HPF (test code = 4481656374) <1 See_Comment [Automated messa ge] The system which generated this result transmitted reference range: 0 - 5 HPF. The reference range was not used to interpret this result as normal/abnormal. BACTERIA (test code = 4085358723) Negative Negative MUCOUS (test code = 4918871512) Slight Negative LPF A SQ EPITH (test code = 1103497050) HPF Lab Interpretation (test code = 77364-4) Abnormal [facility] METABOLIC PANEL (28071)2020-11-04 02:40:09* Test Item Value Reference Range Interpretation Comme nts NA (test code = 6519761748) 141 mmol/L 135-145 K (test code = 1084511223) 4.1 mmol/L 3.5-5.0 CL (test code = 9136853585) 110 mmol/L 98-108 H CO2 TOTAL (test code = 6224091666) 22 mmol/L 23-31 L AGAP (test code = 0635859489) 2-16 BUN (test code = 7473028806) 15 mg/dL 7-23 GLUCOSE (test code = 0735619271) 115 mg/dL 70-110 H CREATININE (test code = 6922529831) 0.69 mg/dL 0.50-1.04 TOTAL BILI (test code = 0234077501) 0.2 mg/dL 0.1-1.1 CALCIUM (test code = 8860788508) 9.2 mg/dL 8.6-10.6 T PROTEIN (test code = 3465634118) 6.8 g/dL 6.3-8.2 ALBUMIN (test code = 9567288919) 4.1 g/dL 3.5-5.0 ALK PHOS (test code = 1145241415) 69 U/L 34-122 ALTv (test code = 1742-6) 20 U/L 5-35 AST(SGOT) (test code = 5175512320) 23 U/L 13-40 eGFR (test code = 5856558353) mL/min/1.73m2 DARWIN (test code = DARWIN) Association [...] imaging tests). Lab Interpretation (test code = 01639-8) Abnormal [facility]woodLIPASE, [id number] 02:39:49* Test Item Value Reference Range Interpretation Comme nts LIPASE (test code = 9568142069) 117 U/L 0-220 Lab Interpretation (test cod e = 81580-2) Normal [facility] KingwoodPROTHROMBIN TIME / [id number] 02:39:08* Test Item Value Reference Range Interpretation Comme nts PROTIME PATIENT (test code = 5964-2) See_Comment [Automated Expert TAa [employer]!] The system which generated this result transmitted reference range: 12.0 - 14.7 Seconds. The reference range was not used to interpret this result as normal/abnormal. INR (test code = 6301-6) Normal INR <1.1; Warfarin Therapeutic range 2.0 to 3.0 or 2.5 to 3.5, depending upon the indications. Lab Interpretation (test code = 86225-7) Normal [facility]woodCB WITH [id number] 02:30:11* Test Item Value Reference Range Interpretation Comme nts WBC (test code = 6690-2) See_Comment H [Automated Expert TAa [employer]!] The system which generated this result transmitted reference range: 4.30 - 11.10 10*3/?L. The reference range was not used to interpret this result as normal/abnormal. RBC (test code = 789-8) See_Comment [Automated Expert TAa [employer]!] The system which generated this result transmitted [...] 32.8 g/dL 31.6-35.1 RDW-SD (test code = 96327-2) 44.1 fL 39.0-49.9 RDW-CV (test code = 788-0) 13.8 % 12.0-15.5 PLT (test code = 777-3) See_Comment [Automated messa ge] The system which generated this result transmitted reference range: 166 - 358 10*3/?L. The reference range was not used to interpret this result as normal/abnormal. MPV (test code = 88594-7) 9.6 fL 9.5-12.9 NRBC/100 WBC (test code = 7342058725) See_Comment [Automated [employer] ssage] The system which generated this result transmitted reference range: 0.0 - 10.0 /100 WBCs. The reference range was not used to interpret this result as normal/abnormal. NRBC x10^3 (test code = 5265033642) <0.01 See_Comment [Automated messa ge] The system which generated this result transmitted reference range: 10*3/?L. The reference range was not used to interpret this result as normal/abnormal. GRAN MAT (NEUT) % (test code = 770-8) 65.9 % IMM GRAN % (test code = 8335751202) 0.70 % LYMPH % (test code = 736-9) 25.9 % MONO % (test code = 5905-5) 5.1 % EOS % (test code = 713-8) 2.0 % BASO % (test code = 706-2) 0.4 % GRAN MAT x10^3(ANC) (test code = 2175577768) 8.82 10*3/uL 1.88-7.09 H IMM GRAN x10^3 (test code = 4076166326) 0.09 10*3/uL 0.00-0.06 H LYMPH x10^3 (test code = 731-0) 3.46 10*3/uL 1.32-3.29 H MONO x10^3 (test code = 742-7) 0.68 10*3/uL 0.33-0.92 EOS x10^3 (test code = 711-2) 0.27 10*3/uL 0.03-0.39 BASO x10^3 (test code = 704-7) 0.05 10*3/uL 0.01-0.07 Lab Interpretation (test code = 74671-2) Abnormal [facility]woodCOVID[facility] (ID NOW RAPID TESTING)2020-09-17 16:56:05* Test Item Value Reference Range Interpretation Comme nts SARS-CoV-2 Rapid ID NOW (test code = 64390-8) Not Detected Not Detected DARWIN (test code = DARWIN) ID NOW COVID-19 As say is an isothermal nucleic acid amplification test intended for the qualitative detection of nucleic acid from SARS-CoV-2 viral RNA in nasopharyngeal (VENUE ATTENDANT) specimens. It is used under Emergency [...] clinically indicated. Lab Interpretation (test code = 93206-9) Normal [facility] [id number] 16:54:09* Test Item Value Reference Range Interpretation Comme nts Streptococcus pyogenes (grou p A) antigen (test code = 49499-1) Negative Negative Lab Interpretation (test cod e = 27825-4) Normal [facility]woodXR HAND 3+ VW [id number] 07:29:48 Impression: No acute fracture or dislocation. RL: 2824AFC: [id number] End of Report Exam: Left Hand, 09/07/2020 [...] swelling.IMPRESSIONImpression: No acute fracture or dislocation.RL: 2824AFC: 37803Igu of Report [facility]woodXR FOREARM 2 VW [id number] 07:28:55No acute abnormality of the left forearm. RL: 6200AFC: 42486 Patient name: CHARITY MONROYOB: 1980 40 years [...] acute abnormality of the left forearm.RL: 6200AFC: 20074 [facility] KingwoodUrinalysis2021-02-21 09:06:00* Test Item Value Reference Range Interpretation Comme nts APPEARANCE (test code = 2163160259) Hazy Clear A COLOR (test code = 2793357876) Yellow Yellow PH (test code = 1085091202) 4.8-8.0 SP GRAVITY (test code = 5454553858) 1.003-1.030 GLU U QUAL (test code = 1964457580) Normal Normal BLOOD (test code = 0208192378) Negative Negative KETONES (test code = 1597796049) Negative Negative PROTEIN (test code = 2887-8) Negative Negative UROBILIN (test code = 9295017768) Normal Normal BILIRUBIN (test code = 4421170646) Negative Negative NITRITE (test code = 7942810249) Negative Negative LEUK MARC (test code = 0758455137) Negative Negative RBC/HPF (test code = 3961921181) See_Comment [Automated messa ge] The system which generated this result transmitted reference range: 0 - 3 HPF. The reference range was not used to interpret this result as normal/abnormal. WBC/HPF (test code = 7758179634) <1 See_Comment [Automated messa ge] The system which generated this result transmitted reference range: 0 - 5 HPF. The reference range was not used to interpret this result as normal/abnormal. BACTERIA (test code = 8982563520) Moderate Negative A SQ EPITH (test code = 3619702070) HPF Lab Interpretation (test code = 39266-6) Abnormal [facility] with Kxmzpmmlnpkp5123-40-38 08:50:00* Test Item Value Reference Range Interpretation Comme nts WBC (test code = 6690-2) See_Comment H [Automated messa ge] The system which generated this result transmitted reference range: 4.30 - 11.10 10*3/?L. The reference range was not used to interpret this result as normal/abnormal. RBC (test code = 789-8) See_Comment [Automated Expert TAa ge] The system which generated this result [...] 34.0 g/dL 31.6-35.1 RDW-SD (test code = 94258-8) 42.6 fL 39-49.9 RDW-CV (test code = 788-0) 13.6 % 12-15.5 PLT (test code = 777-3) See_Comment H [Automated messa ge] The system which generated this result transmitted reference range: 166 - 358 10*3/?L. The reference range was not used to interpret this result as normal/abnormal. MPV (test code = 47254-8) 9.7 fL 9.5-12.9 NRBC/100 WBC (test code = 5430214416) See_Comment [Automated me ssage] The system which generated this result transmitted reference range: 0.0 - 10.0 /100 WBCs. The reference range was not used to interpret this result as normal/abnormal. NRBC x10^3 (test code = 2980688523) <0.01 See_Comment [Automated messa ge] The system which generated this result transmitted reference range: 10*3/?L. The reference range was not used to interpret this result as normal/abnormal. GRAN MAT (NEUT) % (test code = 770-8) 49.7 % IMM GRAN % (test code = 8660324359) 0.50 % LYMPH % (test code = 736-9) 41.0 % MONO % (test code = 5905-5) 6.5 % EOS % (test code = 713-8) 1.9 % BASO % (test code = 706-2) 0.4 % GRAN MAT x10^3(ANC) (test code = 0844724843) 6.39 10*3/uL 1.88-7.09 IMM GRAN x10^3 (test code = 6301198296) 0.07 10*3/uL 0-0.06 H LYMPH x10^3 (test code = 731-0) 5.27 10*3/uL 1.32-3.29 H MONO x10^3 (test code = 742-7) 0.84 10*3/uL 0.33-0.92 EOS x10^3 (test code = 711-2) 0.24 10*3/uL 0.03-0.39 BASO x10^3 (test code = 704-7) 0.05 10*3/uL 0.01-0.07 Lab Interpretation (test code = 98403-8) Abnormal [facility]woodPOCT [id number] 08:45:00* Test Item Value Reference Range Interpretation Comme nts POCT PREG (test code = 1605) neg On board controls acceptable with C Line (test code = 3574) yes POCT PREG LOT # (test code = 3575) [id number] POCT PREG TEST DATE ( test code = 3576) 04/06/2022 Lab Interpretation (test cod e = 19292-4) Normal [facility]woodComplete Metabolic [id number] 08:30:00* Test Item Value Reference Range Interpretation Comme nts NA (test code = 8559624079) 137 mmol/L 135-145 K (test code = 8293550825) 3.3 mmol/L 3.5-5 L CL (test code = 0197122063) 102 mmol/L 98-108 CO2 TOTAL (test code = 8949940658) 24 mmol/L 23-31 AGAP (test code = 5866863947) 2-16 BUN (test code = 2673319458) 9 mg/dL 7-23 GLUCOSE (test code = 4223230028) 116 mg/dL 70-110 H CREATININE (test code = 9194046947) 0.48 mg/dL 0.5-1.04 L TOTAL BILI (test code = 7230459350) 0.3 mg/dL 0.1-1.1 CALCIUM (test code = 2135337126) 9.4 mg/dL 8.6-10.6 T PROTEIN (test code = 8143071321) 7.0 g/dL 6.3-8.2 ALBUMIN (test code = 0212326154) 4.3 g/dL 3.5-5 ALK PHOS (test code = 7283491385) 127 U/L 34-122 H ALTv (test code = 1742-6) 87 U/L 5-35 H AST(SGOT) (test code = 7523048304) 34 U/L 13-40 eGFR Calculation (Non-) (test code = 7737986369) mL/min/1.73m2 eGFR Calculation () (test code = 6056919687) mL/min/1.73m2 DARWIN (test code = DARWIN) Association [...] imaging tests). Lab Interpretation (test code = 31355-7) Abnormal [facility] KingwoodLipase, [id number] 08:30:00* Test Item Value Reference Range Interpretation Comme nts LIPASE (test code = 6163893640) 297 U/L 0-220 H Lab Interpretation (test cod e = 48644-4) Abnormal [facility]woodURINALYSIS2021-02-07 19:25:00* Test Item Value Reference Range Interpretation Comme nts APPEARANCE (test code = 8031362739) Clear Clear COLOR (test code = 6352996006) Straw Yellow A PH (test code = 3516374275) 4.8-8.0 SP GRAVITY (test code = 5289776694) 1.003-1.030 GLU U QUAL (test code = 6181350278) Normal Normal BLOOD (test code = 3351439342) 1+ Negative A KETONES (test code = 3328158973) Negative Negative PROTEIN (test code = 2887-8) Negative Negative UROBILIN (test code = 6915210864) Normal Normal BILIRUBIN (test code = 5793333109) Negative Negative NITRITE (test code = 6175827566) Negative Negative LEUK MARC (test code = 8898585994) Negative Negative RBC/HPF (test code = 6406404914) See_Comment [Automated [employer]] The system which generated this result transmitted reference range: 0 - 3 HPF. The reference range was not used to interpret this result as normal/abnormal. WBC/HPF (test code = 2370915010) <1 See_Comment [Automated Expert TAa [employer]!] The system which generated this result transmitted reference range: 0 - 5 HPF. The reference range was not used to interpret this result as normal/abnormal. BACTERIA (test code = 1812879658) Few Negative A MUCOUS (test code = 1328849489) Slight Negative LPF A SQ EPITH (test code = 4032582314) HPF Lab Interpretation (test code = 30794-0) Abnormal [facility] [id number] 19:09:00* Test Item Value Reference Range Interpretation Comme nts TROPONIN I (test code = 3138219705) <0.012 See_Comment [Automated message] The system which [...] biotin. ? Lab Interpretation (test code = 39781-8) Normal [facility]woodAD [facility] [id number] 19:09:00* Test Item Value Reference Range Interpretation Comme nts BENZO U (test code = 3932239332) Presumptive Positive Negative A ROSA U (test code = 2585953447) Negative Negative AMPHET (test code = 4344275900) Negative Negative THC (test code = 8117951393) Negative Negative METHADONE (test code = 3868557075) Negative Negative Meth U (test code = 0958317240) Negative Negative OPIATES (test code = 6311338098) Negative Negative Cocaine Metabolite (test code = 4819197713) Negative Negative PROPOXY (test code = 4322538001) Negative Negative Tric U (test code = 3706293288) Negative Negative PCP (test code = 2065444418) Negative Negative OXYCOD (test code = 3188603025) Negative Negative DARWIN (test code = DARWIN) [...] legal testing). Lab Interpretation (test code = 61305-3) Abnormal [facility]. METABOLIC PANEL (68461)2020-08-14 19:01:00* Test Item Value Reference Range Interpretation Comme nts NA (test code = 9576334052) 138 mmol/L 135-145 K (test code = 0321345113) 4.5 mmol/L 3.5-5 CL (test code = 1500149549) 106 mmol/L 98-108 CO2 TOTAL (test code = 5660412134) 21 mmol/L 23-31 L AGAP (test code = 2491890740) 2-16 BUN (test code = 8755518588) 13 mg/dL 7-23 GLUCOSE (test code = 1847202810) 97 mg/dL 70-110 CREATININE (test code = 7130713422) 0.48 mg/dL 0.5-1.04 L TOTAL BILI (test code = 7142705435) 0.4 mg/dL 0.1-1.1 CALCIUM (test code = 9851333758) 9.1 mg/dL 8.6-10.6 T PROTEIN (test code = 3105203342) 7.5 g/dL 6.3-8.2 ALBUMIN (test code = 3485989733) 4.3 g/dL 3.5-5 ALK PHOS (test code = 9320457395) 62 U/L 34-122 ALTv (test code = 1742-6) 19 U/L 5-35 AST(SGOT) (test code = 7022627725) 26 U/L 13-40 eGFR Calculation (Non-) (test code = 9465287750) mL/min/1.73m2 eGFR Calculation () (test code = 8310359275) mL/min/1.73m2 DARWIN (test code = DARWIN) Association [...] imaging tests). Lab Interpretation (test code = 43470-0) Abnormal [facility]woodLIPASE2021-02-07 19:01:00* Test Item Value Reference Range Interpretation Comme nts LIPASE (test code = 0133388035) 76 U/L 0-220 Lab Interpretation (test cod e = 77923-6) Normal [facility] WITH [id number] 18:47:00* Test Item Value Reference Range Interpretation Comme nts WBC (test code = 6690-2) See_Comment H [Automated [employer]] The system which generated this result transmitted reference range: 4.30 - 11.10 10*3/?L. The reference range was not used to interpret this result as normal/abnormal. RBC (test code = 789-8) See_Comment [[employer]] The system which generated this result transmitted [...] 34.3 g/dL 31.6-35.1 RDW-SD (test code = 07621-9) 42.0 fL 39-49.9 RDW-CV (test code = 788-0) 13.4 % 12-15.5 PLT (test code = 777-3) See_Comment [Automated messa ge] The system which generated this result transmitted reference range: 166 - 358 10*3/?L. The reference range was not used to interpret this result as normal/abnormal. MPV (test code = 41309-5) 9.9 fL 9.5-12.9 NRBC/100 WBC (test code = 4080125027) See_Comment [Automated [employer] ssage] The system which generated this result transmitted reference range: 0.0 - 10.0 /100 WBCs. The reference range was not used to interpret this result as normal/abnormal. NRBC x10^3 (test code = 1066053118) <0.01 See_Comment [Automated messa ge] The system which generated this result transmitted reference range: 10*3/?L. The reference range was not used to interpret this result as normal/abnormal. GRAN MAT (NEUT) % (test code = 770-8) 60.1 % IMM GRAN % (test code = 9626971219) 0.40 % LYMPH % (test code = 736-9) 31.3 % MONO % (test code = 5905-5) 6.0 % EOS % (test code = 713-8) 1.9 % BASO % (test code = 706-2) 0.3 % GRAN MAT x10^3(ANC) (test code = 6763703428) 6.96 10*3/uL 1.88-7.09 IMM GRAN x10^3 (test code = 9311754910) 0.05 10*3/uL 0-0.06 LYMPH x10^3 (test code = 731-0) 3.62 10*3/uL 1.32-3.29 H MONO x10^3 (test code = 742-7) 0.69 10*3/uL 0.33-0.92 EOS x10^3 (test code = 711-2) 0.22 10*3/uL 0.03-0.39 BASO x10^3 (test code = 704-7) 0.04 10*3/uL 0.01-0.07 Lab Interpretation (test code = 62372-0) Abnormal [facility] CHEST 1 [id number] 18:17:08No acute cardiopulmonary abnormality. Preliminary Report Dictated [...] reviewed this study and agree with theabove report.[facility] KingwoodLactic Acid Whole [id number] 18:11:00* Test Item Value Reference Range Interpretation Comme nts LACTIC ACID (test code = 9377058693) 1.95 mmol/L 0.5-2.2 Lab Interpretation (test cod e = 74538-4) Normal [facility] KingwoodCT ABDOMEN PELVIS WO [id number] 05:45:24No acute abdominopelvic abnormality. No urolithiasis. 2.5 [...] this study and agree with the abovereport.[facility] KingwoodPOOR [id number] 03:10:00* Test Item Value Reference Range Interpretation Comme nts POCT PREG (test code = 1605) Negative On board controls acceptable with C Line (test code = 3574) Present POCT PREG LOT # (test code = 3575) [id number] POCT PREG TEST DATE ( test code = 3576) 03/07/2022 Lab Interpretation (test cod e = 42870-3) Normal [facility] with Edcqjyufkiyu9666-68-68 03:05:00* Test Item Value Reference Range Interpretation Comme [facility] WBC (test code = 6690-2) See_Comment H [...] 34.7 g/dL 31.6-35.1 RDW-SD (test code = 94420-5) 42.0 fL 39-49.9 RDW-CV (test code = 788-0) 13.5 % 12-15.5 PLT (test code = 777-3) See_Comment [Automated message] The system which generated this result transmitted reference range: 166 - 358 10*3/?L. The reference range was not used to interpret this result as normal/abnormal. MPV (test code = 62319-3) 9.8 fL 9.5-12.9 NRBC/100 WBC (test code = 8436437395) See_Comment [Automated message] The system which generated this result transmitted reference range: 0.0 - 10.0 /100 WBCs. The reference range was not used to interpret this result as normal/abnormal. NRBC x10^3 (test code = 8790408905) <0.01 See_Comment [Automated message] The system which generated this result transmitted reference range: 10*3/?L. The reference range was not used to interpret this result as normal/abnormal. GRAN MAT (NEUT) % (test code = 770-8) 66.2 % IMM GRAN % (test code = 0176894541) 0.60 % LYMPH % (test code = 736-9) 25.4 % MONO % (test code = 5905-5) 5.6 % EOS % (test code = 713-8) 1.9 % BASO % (test code = 706-2) 0.3 % GRAN MAT x10^3(ANC) (test code = 7968869496) 10.64 10*3/uL 1.88-7.09 H IMM GRAN x10^3 (test code = 2223127628) 0.09 10*3/uL 0-0.06 H LYMPH x10^3 (test code = 731-0) 4.09 10*3/uL 1.32-3.29 H MONO x10^3 (test code = 742-7) 0.90 10*3/uL 0.33-0.92 EOS x10^3 (test code = 711-2) 0.31 10*3/uL 0.03-0.39 BASO x10^3 (test code = 704-7) 0.05 10*3/uL 0.01-0.07 Lab Interpretation (test code = 31461-0) Abnormal [facility] KingwoodUrinalysis2021-02-04 02:56:00* Test Item Value Reference Range Interpretation Comme nts APPEARANCE (test code = 2564593421) Hazy Clear A COLOR (test code = 6141002329) Yellow Yellow PH (test code = 9818537818) 4.8-8.0 SP GRAVITY (test code = 2923538430) 1.003-1.030 GLU U QUAL (test code = 9322694335) Normal Normal BLOOD (test code = 9221750858) Negative Negative KETONES (test code = 8824223948) Negative Negative PROTEIN (test code = 2887-8) Negative Negative UROBILIN (test code = 6057476372) Normal Normal BILIRUBIN (test code = 0884463050) Negative Negative NITRITE (test code = 7976978321) Negative Negative LEUK MARC (test code = 2807068134) Negative Negative RBC/HPF (test code = 3927088585) See_Comment [Automated messa ge] The system which generated this result transmitted reference range: 0 - 3 HPF. The reference range was not used to interpret this result as normal/abnormal. WBC/HPF (test code = 6249687667) See_Comment [Automated Expert TAa ge] The system which generated this result transmitted reference range: 0 - 5 HPF. The reference range was not used to interpret this result as normal/abnormal. BACTERIA (test code = 2435882770) Few Negative A MUCOUS (test code = 4822121724) Slight Negative LPF A SQ EPITH (test code = 2849904803) HPF YEAST BUD (test code = 7880264705) See_Comment H [Automated messa ge] The system which generated this result transmitted reference range: <=1 HPF. The reference range was not used to interpret this result as normal/abnormal. Lab Interpretation (test code = 08671-9) [facility]normal [facility]wood[facility]rop[facility] [id number] 02:24:00* Test Item Value Reference Range Interpretation Comme nts TROPONIN I (test code = 8865559580) <0.012 See_Comment [Automated message] The system which [...] biotin. ? Lab Interpretation (test code = 89460-1) Normal [facility] (ID NOW RAPID TESTING)2020-08-11 02:15:00* Test Item Value Reference Range Interpretation Comme nts SARS-CoV-2 Rapid ID NOW (test code = 28896-8) Not Detected Not Detected DARWIN (test code = DARWIN) ID NOW COVID-19 As say is an isothermal nucleic acid amplification test intended for the qualitative detection of nucleic acid from SARS-CoV-2 viral RNA in nasopharyngeal (VENUE ATTENDANT) specimens. It is used under Emergency [...] clinically indicated. Lab Interpretation (test code = 36117-2) Normal [facility] Metabolic Panel (NA, K, CL, CO2, GLUCOSE, BUN, CREATININE, CA)2020-08-11 02:13:00* Test Item Value Reference Range Interpretation Comme nts NA (test code = 6177137490) 137 mmol/L 135-145 K (test code = 3296384210) 4.0 mmol/L 3.5-5 CL (test code = 5709021983) 107 mmol/L 98-108 CO2 TOTAL (test code = 9123729509) 19 mmol/L 23-31 L AGAP (test code = 5807033880) 2-16 BUN (test code = 8131386426) 10 mg/dL 7-23 GLUCOSE (test code = 4770385592) 106 mg/dL 70-110 CREATININE (test code = 5982830842) 0.47 mg/dL 0.5-1.04 L CALCIUM (test code = 4821237534) 9.2 mg/dL 8.6-10.6 eGFR Calculation (Non-) (test code = 8600481650) mL/min/1.73m2 eGFR Calculation () (test code = 8378027017) mL/min/1.73m2 DARWIN (test code = DARWIN) Association [...] imaging tests). Lab Interpretation (test code = 25368-7) Abnormal [facility] (ALB, T.PRO, BILI T, BU/BC, ALT, AST, ALK PHOS)2020-08-11 02:13:00* Test Item Value Reference Range Interpretation Comme nts TOTAL BILI (test code = 4962701077) 0.4 mg/dL 0.1-1.1 BILI UNCON (test code = 3691715833) 0.3 mg/dL 0.1-1.1 BILI CONJ (test code = 9538774200) 0.0 mg/dL 0-0.3 T PROTEIN (test code = 0309962303) 7.5 g/dL 6.3-8.2 ALBUMIN (test code = 0199067996) 4.4 g/dL 3.5-5 ALK PHOS (test code = 8904224919) 48 U/L 34-122 ALTv (test code = 1742-6) 12 U/L 5-35 AST(SGOT) (test code = 4629581852) 22 U/L 13-40 Lab Interpretation (test cod e = 76005-3) Normal [facility]woodLipase Ldhcj2781-15-82 02:13:00* Test Item Value Reference Range Interpretation Comme nts LIPASE (test code = 2785217716) 78 U/L 0-220 Lab Interpretation (test cod e = 68984-5) Normal [facility]woodLactic Acid Whole [id number] 02:05:00* Test Item Value Reference Range Interpretation Comme nts LACTIC ACID (test code = 1995027856) 1.47 mmol/L 0.5-2.2 Lab Interpretation (test cod e = 30334-5) Normal [facility]woodXR FOREARM 2 VW [id number] 14:31:40No acute bony abnormality. Soft tissue swelling. [...] this study and agree with the abovereport.[facility] (ID NOW RAPID TESTING)2020-08-07 14:18:00* Test Item Value Reference Range Interpretation Comme nts SARS-CoV-2 Rapid ID NOW (test code = 30551-1) Not Detected Not Detected DARWIN (test code = DARWIN) ID NOW COVID-19 As say is an isothermal nucleic acid amplification test intended for the qualitative detection of nucleic acid from SARS-CoV-2 viral RNA in nasopharyngeal (VENUE ATTENDANT) specimens. It is used under Emergency [...] clinically indicated. Lab Interpretation (test code = 55094-2) Normal [facility]woodTROPONIN [id number] 02:54:00* Test Item Value Reference Range Interpretation Comme nts TROPONIN I (test code = 8427986693) <0.012 See_Comment [Automated message] The system which [...] biotin. ? Lab Interpretation (test code = 26746-1) Normal [facility]woodLIPASE2020-12-25 02:37:00* Test Item Value Reference Range Interpretation Comme nts LIPASE (test code = 1945850427) 76 U/L 0-220 Lab Interpretation (test cod e = 81855-5) Normal [facility]woodURINALYSIS2020-12-25 01:54:00* Test Item Value Reference Range Interpretation Comme nts APPEARANCE (test code = 8165124155) Clear Clear COLOR (test code = 1730010426) Straw Yellow A PH (test code = 4665308048) 4.8-8.0 SP GRAVITY (test code = 0033356063) 1.003-1.030 GLU U QUAL (test code = 4739768296) Normal Normal BLOOD (test code = 2707476790) 3+ Negative A KETONES (test code = 0259167167) Negative Negative PROTEIN (test code = 2887-8) Negative Negative UROBILIN (test code = 3982746612) Normal Normal BILIRUBIN (test code = 5240570124) Negative Negative NITRITE (test code = 4398603472) Negative Negative LEUK MARC (test code = 4036773267) Negative Negative RBC/HPF (test code = 9647024349) See_Comment [Automated messa ge] The system which generated this result transmitted reference range: 0 - 3 HPF. The reference range was not used to interpret this result as normal/abnormal. WBC/HPF (test code = 5692816744) <1 See_Comment [Automated messa ge] The system which generated this result transmitted reference range: 0 - 5 HPF. The reference range was not used to interpret this result as normal/abnormal. BACTERIA (test code = 9357166806) Few Negative A MUCOUS (test code = 9860270878) Slight Negative LPF A SQ EPITH (test code = 9165989177) HPF Lab Interpretation (test code = 84458-3) Abnormal [facility] WITH [id number] 00:57:00* Test Item Value Reference Range Interpretation [...] 34.0 g/dL 31.6-35.1 RDW-SD (test code = 37219-5) 41.7 fL 39-49.9 RDW-CV (test code = 788-0) 13.2 % 12-15.5 PLT (test code = 777-3) See_Comment [Automated messa ge] The system which generated this result transmitted reference range: 166 - 358 10*3/?L. The reference range was not used to interpret this result as normal/abnormal. MPV (test code = 31753-4) 9.4 fL 9.5-12.9 L NRBC/100 WBC (test code = 6368795102) See_Comment [Automated [employer] ssage] The system which generated this result transmitted reference range: 0.0 - 10.0 /100 WBCs. The reference range was not used to interpret this result as normal/abnormal. NRBC x10^3 (test code = 4291526241) <0.01 See_Comment [Automated Expert TAa ge] The system which generated this result transmitted reference range: 10*3/?L. The reference range was not used to interpret this result as normal/abnormal. GRAN MAT (NEUT) % (test code = 770-8) 51.8 % IMM GRAN % (test code = 9066577639) 0.50 % LYMPH % (test code = 736-9) 40.7 % MONO % (test code = 5905-5) 4.0 % EOS % (test code = 713-8) 2.5 % BASO % (test code = 706-2) 0.5 % GRAN MAT x10^3(ANC) (test code = 7387653160) 5.38 10*3/uL 1.88-7.09 IMM GRAN x10^3 (test code = 6590877398) 0.05 10*3/uL 0-0.06 LYMPH x10^3 (test code = 731-0) 4.22 10*3/uL 1.32-3.29 H MONO x10^3 (test code = 742-7) 0.42 10*3/uL 0.33-0.92 EOS x10^3 (test code = 711-2) 0.26 10*3/uL 0.03-0.39 BASO x10^3 (test code = 704-7) 0.05 10*3/uL 0.01-0.07 Lab Interpretation (test code = 83226-6) Abnormal [facility]woodADC,CLC OR LCC ONLY - INFLUENZA A & B DIRECT [id number] 00:51:00* Test Item Value Reference Range Interpretation Comme nts Influenza A (test code = 17208-3) Negative Negative Influenza B (test code = 30913-0) Negative Negative Lab Interpretation (test cod e = 08052-0) Normal [facility] KingwoodPOCT [id number] 00:51:00* Test Item Value Reference Range Interpretation Comme nts POCT PREG (test code = 1605) negative On board controls acceptable with C Line (test code = 3574) present POCT PREG LOT # (test code = 3575) [id number] POCT PREG TEST DATE ( test code = 3576) 11/04/2021 Lab Interpretation (test cod e = 90117-6) Normal [facility] KingwoodTROPONIN [id number] 00:46:00* Test Item Value Reference Range Interpretation Comme nts TROPONIN I (test code = 1718141589) <0.012 See_Comment [Automated message] The system which [...] biotin. ? Lab Interpretation (test code = 52731-3) Normal [facility] (NA, K, CL, CO2, GLUCOSE, BUN, CREATININE, CA)2020-07-01 00:46:00* Test Item Value Reference Range Interpretation Comme nts NA (test code = 5188369215) 141 mmol/L 135-145 K (test code = 0983895770) 3.8 mmol/L 3.5-5 CL (test code = 8707497506) 108 mmol/L 98-108 CO2 TOTAL (test code = 8936149114) 25 mmol/L 23-31 AGAP (test code = 7899425636) 2-16 BUN (test code = 0883713899) 10 mg/dL 7-23 GLUCOSE (test code = 9179646840) 92 mg/dL 70-110 CREATININE (test code = 7031087673) 0.58 mg/dL 0.5-1.04 CALCIUM (test code = 4232236479) 9.4 mg/dL 8.6-10.6 eGFR Calculation (Non-) (test code = 0133544650) mL/min/1.73m2 eGFR Calculation () (test code = 6702950078) mL/min/1.73m2 DARWIN (test code = DARWIN) Association [...] or urine or abnormalities in imaging tests). [facility]woodN-TERMINAL OPS-[id number] 00:43:00* Test Item Value Reference Range Interpretation Comme nts NT-proBNP (test code = 6236888806) 332 pg/mL See_Comment H [Automated message] The system which generated this result transmitted reference range: <=125. The reference range was not used to interpret this result as normal/abnormal. DARWIN (test code = DARWIN) Biotin has been reported to cause a negative bias, interpret results relative to patient's use of biotin. Lab Interpretation (test code = 03905-8) Abnormal [facility]woodXR CHEST 1 [id number] 00:20:50No acute cardiopulmonary abnormality Preliminary Report Dictated [...] and agree with the abovereport.[facility] CERVICAL SPINE WO [id number] 23:23:[address] EXAMINATION: CT [...] lung apices are unremarkable. IMPRESSIONUnremarkable cervical spine CT.[facility]woodPOOR Qzpt8132-05-06 01:50:00* Test Item Value Reference Range Interpretation Comme nts POCT PREG (test code = 1605) Negative On board controls acceptable with C Line (test code = 3574) Present POCT PREG LOT # (test code = 3575) [id number] POCT PREG TEST DATE ( test code = 3576) 10/05/2021 Lab Interpretation (test cod e = 10901-2) Normal [facility] KingwoodTroponin [id number] 01:24:00* Test Item Value Reference Range Interpretation Comme nts TROPONIN I (test code = 2971015331) <0.012 See_Comment [Automated message] The system which [...] biotin. ? Lab Interpretation (test code = 03783-0) Normal [facility] (ID NOW RAPID TESTING)2020-06-13 01:22:00* Test Item Value Reference Range Interpretation Comme nts SARS-CoV-2 Rapid ID NOW (test code = 84840-9) Not Detected Not Detected DARWIN (test code = DARWIN) ID NOW COVID-19 As say is an isothermal nucleic acid amplification test intended for the qualitative detection of nucleic acid from SARS-CoV-2 viral RNA in nasopharyngeal (VENUE ATTENDANT) specimens. It is used under Emergency [...] clinically indicated. Lab Interpretation (test code = 83567-3) Normal [facility] KingwoodD-CYECU8686-38-13 01:16:00* Test Item Value Reference Range Interpretation Comments D-DIMER (test code = 8266518807) See_Comment [Automated message] The system which generated [...] a diagnosis. Lab Interpretation (test code = 78074-8) Normal [facility]woodBasi Metabolic Panel (NA, K, CL, CO2, GLUCOSE, BUN, CREATININE, CA)2020-06-13 01:13:00* Test Item Value Reference Range Interpretation Comme nts NA (test code = 9717156004) 137 mmol/L 135-145 K (test code = 1701676943) 4.2 mmol/L 3.5-5 CL (test code = 3456069384) 103 mmol/L 98-108 CO2 TOTAL (test code = 3999482175) 25 mmol/L 23-31 AGAP (test code = 6912662489) 2-16 BUN (test code = 5353221096) 11 mg/dL 7-23 GLUCOSE (test code = 5472428701) 98 mg/dL 70-110 CREATININE (test code = 0455781140) 0.52 mg/dL 0.5-1.04 CALCIUM (test code = 8581775323) 10.3 mg/dL 8.6-10.6 eGFR Calculation (Non-) (test code = 4938443040) mL/min/1.73m2 eGFR Calculation () (test code = 8224160124) mL/min/1.73m2 DARWIN (test code = DARWIN) Association [...] or urine or abnormalities in imaging tests). [facility]woodHep[facility] Function [facility] (ALB, T.PRO, BILI T, BU/BC, ALT, AST, ALK PHOS)2020-06-13 01:13:00* Test Item Value Reference Range Interpretation Comme nts TOTAL BILI (test code = 5261671880) 0.5 mg/dL 0.1-1.1 BILI UNCON (test code = 4792627756) 0.3 mg/dL 0.1-1.1 BILI CONJ (test code = 0844866195) 0.0 mg/dL 0-0.3 T PROTEIN (test code = 8048238921) 7.3 g/dL 6.3-8.2 ALBUMIN (test code = 2673894076) 4.2 g/dL 3.5-5 ALK PHOS (test code = 3706053641) 85 U/L 34-122 ALTv (test code = 1742-6) 66 U/L 5-35 H AST(SGOT) (test code = 1695722649) 32 U/L 13-40 Lab Interpretation (test cod e = 53969-1) Abnormal [facility] KingwoodLipase Ouhdw8426-10-14 01:13:00* Test Item Value Reference Range Interpretation Comme nts LIPASE (test code = 1058930202) 60 U/L 0-220 Lab Interpretation (test cod e = 03430-1) Normal [facility] KingwoodUrinalysis2020-12-07 01:03:00* Test Item Value Reference Range Interpretation Comme nts APPEARANCE (test code = 6779427927) Clear Clear COLOR (test code = 9716745334) Straw Yellow A PH (test code = 3916569751) 4.8-8.0 SP GRAVITY (test code = 9229024411) 1.003-1.030 GLU U QUAL (test code = 3772788963) Normal Normal BLOOD (test code = 8828695707) Negative Negative KETONES (test code = 0120325187) Negative Negative PROTEIN (test code = 2887-8) Negative Negative UROBILIN (test code = 3996151863) Normal Normal BILIRUBIN (test code = 4391991498) Negative Negative NITRITE (test code = 3437726877) Negative Negative LEUK MARC (test code = 0380083810) Negative Negative RBC/HPF (test code = 1029394129) See_Comment [Automated Expert TAa ge] The system which generated this result transmitted reference range: 0 - 3 HPF. The reference range was not used to interpret this result as normal/abnormal. WBC/HPF (test code = 6921692928) See_Comment [Automated Expert TAa ge] The system which generated this result transmitted reference range: 0 - 5 HPF. The reference range was not used to interpret this result as normal/abnormal. BACTERIA (test code = 5952363988) Negative Negative MUCOUS (test code = 0993412933) Slight Negative LPF A SQ EPITH (test code = 5589198135) HPF Lab Interpretation (test code = 10365-2) Abnormal [facility] KingwoodCB with Oxgcspdqiebp6430-71-40 00:55:00* Test Item Value Reference Range Interpretation [...] 34.5 g/dL 31.6-35.1 RDW-SD (test code = 56040-6) 42.5 fL 39-49.9 RDW-CV (test code = 788-0) 13.5 % 12-15.5 PLT (test code = 777-3) See_Comment [Automated messa ge] The system which generated this result transmitted reference range: 166 - 358 10*3/?L. The reference range was not used to interpret this result as normal/abnormal. MPV (test code = 26915-3) 10.1 fL 9.5-12.9 NRBC/100 WBC (test code = 3162028372) See_Comment [Automated [employer] ssage] The system which generated this result transmitted reference range: 0.0 - 10.0 /100 WBCs. The reference range was not used to interpret this result as normal/abnormal. NRBC x10^3 (test code = 4789927989) <0.01 See_Comment [Automated messa ge] The system which generated this result transmitted reference range: 10*3/?L. The reference range was not used to interpret this result as normal/abnormal. GRAN MAT (NEUT) % (test code = 770-8) 61.9 % IMM GRAN % (test code = 8731512776) 0.60 % LYMPH % (test code = 736-9) 30.6 % MONO % (test code = 5905-5) 5.2 % EOS % (test code = 713-8) 1.4 % BASO % (test code = 706-2) 0.3 % GRAN MAT x10^3(ANC) (test code = 3005577943) 8.03 10*3/uL 1.88-7.09 H IMM GRAN x10^3 (test code = 2702351553) 0.08 10*3/uL 0-0.06 H LYMPH x10^3 (test code = 731-0) 3.97 10*3/uL 1.32-3.29 H MONO x10^3 (test code = 742-7) 0.68 10*3/uL 0.33-0.92 EOS x10^3 (test code = 711-2) 0.18 10*3/uL 0.03-0.39 BASO x10^3 (test code = 704-7) 0.04 10*3/uL 0.01-0.07 Lab Interpretation (test code = 77197-1) Abnormal [facility]woodCOVID[facility] (ID NOW RAPID TESTING)2020-05-17 00:27:00* Test Item Value Reference Range Interpretation Comme nts SARS-CoV-2 Rapid ID NOW (test code = 23649-0) Not Detected Not Detected DARWIN (test code = DARWIN) ID NOW COVID-19 As say is an isothermal nucleic acid amplification test intended for the qualitative detection of nucleic acid from SARS-CoV-2 viral RNA in nasopharyngeal (VENUE ATTENDANT) specimens. It is used under Emergency [...] clinically indicated. Lab Interpretation (test code = 65106-3) Normal [facility] Metabolic Panel (NA, K, CL, CO2, GLUCOSE, BUN, CREATININE, CA)2020-05-17 00:00:00* Test Item Value Reference Range Interpretation Comme nts NA (test code = 6279154640) 136 mmol/L 135-145 K (test code = 3755251673) 3.6 mmol/L 3.5-5 CL (test code = 1004909206) 103 mmol/L 98-108 CO2 TOTAL (test code = 1790131558) 26 mmol/L 23-31 AGAP (test code = 1733166180) 2-16 BUN (test code = 7130456806) 13 mg/dL 7-23 GLUCOSE (test code = 8960588532) 130 mg/dL 70-110 H CREATININE (test code = 7859553244) 0.58 mg/dL 0.5-1.04 CALCIUM (test code = 2919741465) 9.9 mg/dL 8.6-10.6 eGFR Calculation (Non-) (test code = 5087481551) mL/min/1.73m2 eGFR Calculation () (test code = 5905775170) mL/min/1.73m2 DARWIN (test code = DARWIN) Association [...] imaging tests). Lab Interpretation (test code = 59173-8) Abnormal [facility]woodHep[facility] (ALB, T.PRO, BILI T, BU/BC, ALT, AST, ALK PHOS)2020-05-17 00:00:00* Test Item Value Reference Range Interpretation Comme nts TOTAL BILI (test code = 3575741180) 0.4 mg/dL 0.1-1.1 BILI UNCON (test code = 3075992291) 0.3 mg/dL 0.1-1.1 BILI CONJ (test code = 9401351153) 0.0 mg/dL 0-0.3 T PROTEIN (test code = 7885911442) 7.3 g/dL 6.3-8.2 ALBUMIN (test code = 5233003287) 4.3 g/dL 3.5-5 ALK PHOS (test code = 5590797178) 118 U/L 34-122 ALTv (test code = 1742-6) 119 U/L 5-35 H AST(SGOT) (test code = 4156383316) 47 U/L 13-40 H Lab Interpretation (test cod e = 15882-9) Abnormal [facility] KingwoodLipase Wvefu4437-27-93 00:00:00* Test Item Value Reference Range Interpretation Comme nts LIPASE (test code = 8143028097) 70 U/L 0-220 Lab Interpretation (test cod e = 04242-4) Normal [facility] KingwoodCBC with Voucvoiuykom1105-61-43 23:49:00* Test Item Value Reference Range Interpretation Comme nts WBC (test code = 6690-2) See_Comment [Automated Expert TAa ge] The system which generated this result transmitted reference range: 4.30 - 11.10 10*3/?L. The reference range was not used to interpret this result as normal/abnormal. RBC (test code = 789-8) See_Comment [Proximiant] The system which generated this result transmitted [...] 33.3 g/dL 31.6-35.1 RDW-SD (test code = 12920-8) 42.8 fL 39-49.9 RDW-CV (test code = 788-0) 13.5 % 12-15.5 PLT (test code = 777-3) See_Comment [Pro[employer]iant] The system which generated this result transmitted reference range: 166 - 358 10*3/?L. The reference range was not used to interpret this result as normal/abnormal. MPV (test code = 24795-3) 9.8 fL 9.5-12.9 NRBC/100 WBC (test code = 8154423458) See_Comment [CLASEMOVIL] The system which generated this result transmitted reference range: 0.0 - 10.0 /100 WBCs. The reference range was not used to interpret this result as normal/abnormal. NRBC x10^3 (test code = 3755269658) <0.01 See_Comment [Automated DIIME] The system which generated this result transmitted reference range: 10*3/?L. The reference range was not used to interpret this result as normal/abnormal. GRAN MAT (NEUT) % (test code = 770-8) 62.5 % IMM GRAN % (test code = 1832015247) 0.50 % LYMPH % (test code = 736-9) 29.8 % MONO % (test code = 5905-5) 5.6 % EOS % (test code = 713-8) 1.1 % BASO % (test code = 706-2) 0.5 % GRAN MAT x10^3(ANC) (test code = 2583116379) 6.65 10*3/uL 1.88-7.09 IMM GRAN x10^3 (test code = 1491469592) 0.05 10*3/uL 0-0.06 LYMPH x10^3 (test code = 731-0) 3.17 10*3/uL 1.32-3.29 MONO x10^3 (test code = 742-7) 0.59 10*3/uL 0.33-0.92 EOS x10^3 (test code = 711-2) 0.12 10*3/uL 0.03-0.39 BASO x10^3 (test code = 704-7) 0.05 10*3/uL 0.01-0.07 [facility]woodACETAMINOPHEN2020-11-08 08:24:00* Test Item Value Reference Range Interpretation Comme nts ACETAMINOP (test code = 0313638259) 21.0 ug/mL 10-30 DARWIN (test code = DARWIN) Toxic: Greater joan n 200 ug/mL @ 4 hour post ingestion or greater than 50 ug/mL @ 12 hour post ingestion Lab Interpretation (test code = 49207-0) Normal [facility] KingwoodETHANOL2020-11-08 06:37:00* Test Item Value Reference Range Interpretation Comme nts ALCOHOL (test code = 1117811264) <10 mg/dL DARWIN (test code = DARWIN) <10 Mawcmbbq98-261 Toxic>100 Depression of MANAGER [employer] OUTREACH>400 Fatalities Reported [facility] KingwoodBasi Metabolic Panel (NA, K, CL, CO2, GLUCOSE, BUN, CREATININE, CA)2020-05-15 06:35:00* Test Item Value Reference Range Interpretation Comme nts NA (test code = 8100411924) 137 mmol/L 135-145 K (test code = 6448835460) 4.0 mmol/L 3.5-5 CL (test code = 9094061628) 106 mmol/L 98-108 CO2 TOTAL (test code = 6765934844) 25 mmol/L 23-31 AGAP (test code = 7257647342) 2-16 BUN (test code = 3558564669) 9 mg/dL 7-23 GLUCOSE (test code = 2330788669) 95 mg/dL 70-110 CREATININE (test code = 4525757099) 0.53 mg/dL 0.5-1.04 CALCIUM (test code = 6153358418) 9.0 mg/dL 8.6-10.6 eGFR Calculation (Non-) (test code = 0346690482) mL/min/1.73m2 eGFR Calculation () (test code = 4374550403) mL/min/1.73m2 DARWIN (test code = DARWIN) Association [...] or urine or abnormalities in imaging tests). [facility]woodHep[facility] Function [facility] (ALB, T.PRO, BILI T, BU/BC, ALT, AST, ALK PHOS)2020-05-15 06:35:00* Test Item Value Reference Range Interpretation Comme nts TOTAL BILI (test code = 9712951237) 0.4 mg/dL 0.1-1.1 BILI UNCON (test code = 5045385776) 0.2 mg/dL 0.1-1.1 BILI CONJ (test code = 7643972510) 0.0 mg/dL 0-0.3 T PROTEIN (test code = 0989408196) 6.3 g/dL 6.3-8.2 ALBUMIN (test code = 6700199751) 3.8 g/dL 3.5-5 ALK PHOS (test code = 9761567510) 117 U/L 34-122 ALTv (test code = 1742-6) 179 U/L 5-35 H AST(SGOT) (test code = 8897201260) 194 U/L 13-40 H Lab Interpretation (test cod e = 84614-3) Abnormal [facility] KingwoodLipase Tvoug2837-46-46 06:35:00* Test Item Value Reference Range Interpretation Comme [facility] LIPASE (test code = 8184708863) 92 U/L 0-220 Lab Interpretation (test cod e = 12827-5) Normal [facility] KingwoodaPTT2020-11-08 06:22:00* Test Item Value Reference Range Interpretation [...] 30 seconds. Lab Interpretation (test code = 48895-5) Normal [facility] KingwoodUrinalysis2020-11-08 06:21:00* Test Item Value Reference Range Interpretation Comme nts APPEARANCE (test code = 1930150075) Clear Clear COLOR (test code = 0772633431) Yellow Yellow PH (test code = 6978767212) 4.8-8.0 SP GRAVITY (test code = 1097730606) 1.003-1.030 GLU U QUAL (test code = 1779445977) Normal Normal BLOOD (test code = 8619922524) Negative Negative KETONES (test code = 6084723618) Negative Negative PROTEIN (test code = 2887-8) Negative Negative UROBILIN (test code = 0804762968) Normal Normal BILIRUBIN (test code = 5671598405) Negative Negative NITRITE (test code = 7380455631) Negative Negative LEUK MARC (test code = 2518644887) Negative Negative RBC/HPF (test code = 0828448425) See_Comment [Automated messa ge] The system which generated this result transmitted reference range: 0 - 3 HPF. The reference range was not used to interpret this result as normal/abnormal. WBC/HPF (test code = 9056015012) <1 See_Comment [Automated messa ge] The system which generated this result transmitted reference range: 0 - 5 HPF. The reference range was not used to interpret this result as normal/abnormal. BACTERIA (test code = 5965687174) Negative Negative MUCOUS (test code = 2823648227) Slight Negative LPF A SQ EPITH (test code = 8883395014) HPF Lab Interpretation (test code = 88501-6) [facility]normal [facility] / [id number] 06:20:00 * Test Item Value Reference Range [...] the indications. Lab Interpretation (test code = 58575-1) Normal [facility] / [facility] - DRUG SCREEN [id number] 06:19:00* Test Item Value Reference Range Interpretation Comme nts BENZO U (test code = 1361730762) Presumptive Positive Negative A ROSA U (test code = 7413254092) Negative Negative AMPHET (test code = 4182017223) Negative Negative THC (test code = 0457133463) Negative Negative METHADONE (test code = 8284437632) Negative Negative Meth U (test code = 6920315780) Negative Negative OPIATES (test code = 0638785408) Negative Negative Cocaine Metabolite (test code = 3208189203) Negative Negative PROPOXY (test code = 9633564320) Negative Negative Tric U (test code = 2747883466) Negative Negative PCP (test code = 1048428259) Negative Negative OXYCOD (test code = 1063671233) Negative Negative DARWIN (test code = DARWIN) [...] legal testing). Lab Interpretation (test code = 30299-2) Abnormal [facility] with Msyosirporco8314-43-84 06:07:00* Test Item Value Reference Range Interpretation Comme nts WBC (test code = 6690-2) See_Comment [Automated Expert TAa ge] The system which generated this result transmitted reference range: 4.30 - 11.10 10*3/?L. The reference range was not used to interpret this result as normal/abnormal. RBC (test code = 789-8) See_Comment [Automated Expert TAa [employer]!] The system which generated this result transmitted [...] 34.3 g/dL 31.6-35.1 RDW-SD (test code = 07415-1) 43.4 fL 39-49.9 RDW-CV (test code = 788-0) 13.7 % 12-15.5 PLT (test code = 777-3) See_Comment [Automated messa ge] The system which generated this result transmitted reference range: 166 - 358 10*3/?L. The reference range was not used to interpret this result as normal/abnormal. MPV (test code = 81434-2) 9.7 fL 9.5-12.9 NRBC/100 WBC (test code = 0415685967) See_Comment [Automated [employer] ssage] The system which generated this result transmitted reference range: 0.0 - 10.0 /100 WBCs. The reference range was not used to interpret this result as normal/abnormal. NRBC x10^3 (test code = 1223764320) <0.01 See_Comment [Automated messa ge] The system which generated this result transmitted reference range: 10*3/?L. The reference range was not used to interpret this result as normal/abnormal. GRAN MAT (NEUT) % (test code = 770-8) 50.6 % IMM GRAN % (test code = 0554384914) 0.20 % LYMPH % (test code = 736-9) 42.1 % MONO % (test code = 5905-5) 5.5 % EOS % (test code = 713-8) 1.2 % BASO % (test code = 706-2) 0.4 % GRAN MAT x10^3(ANC) (test code = 9392710656) 4.31 10*3/uL 1.88-7.09 IMM GRAN x10^3 (test code = 3206137493) <0.03 0-0.06 LYMPH x10^3 (test code = 731-0) 3.58 10*3/uL 1.32-3.29 H MONO x10^3 (test code = 742-7) 0.47 10*3/uL 0.33-0.92 EOS x10^3 (test code = 711-2) 0.10 10*3/uL 0.03-0.39 BASO x10^3 (test code = 704-7) 0.03 10*3/uL 0.01-0.07 Lab Interpretation (test code = 16408-3) Abnormal [facility] Odoj5482-27-08 05:53:00* Test Item Value Reference Range Interpretation Comme nts POCT PREG (test code = 1605) Negative On board controls acceptable with C Line (test code = 3574) Present POCT PREG LOT # (test code = 3575) HCG [id number] POCT PREG TEST DATE ( test code = 3576) 10/05/2021 Lab Interpretation (test cod e = 44952-0) Normal [facility] Consult Notes Date/Time Note Provider Source 2024-11-01 [...] palpitations at rest. No syncopal attacks. Primary microfilm operator: Dr. Jerson MONTE dated 11/2023. 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 This report was dictated using [employer] and is subject to voice recognition errors. [...] feel free to call our office at [phone]. I would be happy to be of further assistance for Charity Roca wellbeing. Voice recognition software has been used to create portions of this document. An attempt to proofread has been made to minimize errors. Please do not hesitate to call with any questions. Natasha Hernandes MD 11/01/2024 9:43 AM Induction Furnace Operator, Division of Cardiology [facility] - Health History and [...] catheterization done about 3-1/2 weeks ago at [place] and at that time patient did not [...] Problem Relation Age of Onset Heart Mother NC in her 40s Heart Father NC in his 60s SOCIAL HISTORY Social History [...] Impression No acute cardiopulmonary abnormality. HS:Y RL: 5781 End of Report. Findings of cardiac catheterization [...] user?: NO Patient will require observation [place] PLASTIC SURGEON was verified during stay Alexx Kwok MD [facility] 2024-11-03 12:52:39 Pre-Procedure Sedation Evaluation H&P from [...] completed and signed. Alec Antoine MD PGY-5, Wedding Coordinator Pager: [phone] Cosigned by Dane Jurado MD at 11/03/2024 1:11 PM CDT Associated attestation - Dane Jurado MD - 11/03/2024 1:11 PM CDT I agree with the note as written Dane Jurado M.D. Interventional Cardiology Pager: [phone] INTERVENTIONAL CARDIOLOGY [facility] 2024-11-01 18:17:28 MCAWHITE Admit H&P PCP: Riddhi Montes Date of Service: 11/01/2024 CHIEF COMPLAINT: Chest pain HISTORY OF PRESENT ILLNESS Charity Roca is a 44 year old female with a PMH of morbid obesity, HTN, HLD, CAD s/p PCI (reported 10/06/2023, outpatient microfilm operator is Dr. Arthur), prior pancreatitis, PTSD, depression and anxiety who presented as a transfer from [facility] for unstable angina. The patient reported [...] in BP. Cardiology consulted, recommended transfer to [facility] [place] for invasive coronary angiography. Upon arrival to [facility] [place], patient evaluated at bedside. Stated that she [...] reflect atelectasis or infiltrate. RL: 781 AFC: 57479 11/01/2024 EKG with Sinus tachycardia, possible LA [...] Qtc 444 ms. Plan: - [facility] - C/w Heparin gtt - C/w ASA 81 mg QD, Plavix 75 mg QD - Increased Rosuvastatin to 40 mg QD - C/w Imdur 60 mg QD, consider increasing to 90 mg QD - NTG 0.4mg SL q5min prn angina - Morphine 2mg IV q4h prn angina - Telemetry, O2 per protocol, Electrolytes: K >4, Mg>2 - Patient's outpatient microfilm operator is Dr. Arthur PTSD Depression Anxiety Patient [...] details. DOS 11/02/24 Rosario Virk MD, FACC Induction Furnace Operator Division of Cardiovascular Medicine [facility] - Health 2024-11-01 00:05:09 MEDICINE [facility] ADMIT H&P Date of Service: 11/01/2024 CHIEF [...] protonix, ketorlac and it did not help. Percolator Operator: Dr. Arthur PAST MEDICAL HISTORY Past Medical History: Diagnosis Date Anxiety Hypertension PTSD (post-traumatic stress disorder) of family members. Past Surgical History: Procedure Laterality Date CHOLECYSTECTOMY TONSILLECTOMY Family History Problem Relation Age of Onset Heart Mother NC in her 40s Heart Father NC in his 60s ALLERGIES No Known Allergies [...] intervention for the workup and treatment of... [facility] 2023-02-16 01:18:50 Formatting of this [...] acute, severe Comparison: September 11, 2021 RL: 65347 Ordering Clinician: LEEANNE WISE Technique: Axial CT [...] the ACR Incidental Findings Committee;Journal of the [place] Volume 7, Issue 10, Pages 892-945, April 2010). CHEST 1 VW Result Date: [...] process is identified in the chest. RL: 0801 END OF REPORT Assessment and plan: Principal [...] MD 02/16/2023 IM-INTERNAL MEDICINE STAFF [facility] Procedure Notes Date/Time Note Provider Source 2024-11-03 14:54:32 Procedure(s): TX CATH PLMT L HRT & ARTS W/NJX & ANGIO IMG S&I; TX IV DOP EDILSON&/OR PRESS C/EVERETT RSRV JEFRY 1ST VSL; TX IV DOP EDILSON&/OR PRESS C/EVERETT RSRV JEFRY ADDL VSL Pre-Procedure Diagnose(s): Coronary artery disease involving white mountain coronary artery of white mountain heart with unstable angina pectoris Post-Procedure Diagnose(s): Coronary artery disease involving white mountain coronary artery of white mountain heart with unstable angina pectoris Left Heart Cath/Coronary Angiography Charity Roca Date of Service: 11/03/2024 2:55 PM Attending Physician: Dane Jurado MD Fellow: Dr. Jones Referring Physician: Dr. Al Hemyari Procedures Performed: LHC/Coronary Angiogram: CPT 14756 FFR of mLAD: CPT 62289 FFR of mRCA: CPT 93813 Indication/Diagnosis: ACS ([place]/NSTEMI) Consent: Risks, benefits, alternatives and complications of the procedure discussed with the patient, who understood and agreed to proceed. Aseptic technique: Chlorprep Local Anesthesia: 1% lidocaine without epinephrine Sedation: Moderate Access site: right femoral artery Closure Method: Angio-Seal Sterile dressing: yes Complications: none Procedures: After patient identification/verification, the patient was thereafter transferred to the collaborating supervising physician table. The access site was prepped and [...] MD 11/03/2024 2:55 PM IM-INTERVENTIONAL CARDIOLOGY STAFF [facility] Notes <thead> Date/Time Note Provider Source 2025-01-07 15:08:22 Chief Complaint Patient presents with Follow-up Follow up for insomnia medication refills Marbella Oh LVN [facility] 2024-12-15 22:30:00 No answer in lobby. Razia Yost RN [facility] 2024-12-15 22:16:00 Pt called by Erp no answer in lobby. [facility] 2024-12-15 21:01:27 Arrives to ED ambulatory. States she was here yesterday for same CC and was told to come back if new symptoms presented. Today she developed diarrhea and vomiting. Sates pain is still the same. Connie Rivera RN [facility] 2024-12-15 20:55:00 Called for pt in the lobby No response I therefore did not see or evaluate this pt MD Jose Ortiz Wakili S, MD 12/15/[address] [facility] 2024-12-14 16:49:16 Patient given discharge instructions, and verbalized no further concerns or questions. Skin p/w/d, rr equal and non labored. A&OX4. Ambulated independently with a steady gait in stable condition. Riddhi Su RN [facility] 2024-12-14 13:28:17 Abdominal pain after eating and drinking since last night. Also endorsing nausea. Denies chest pain, dysuria. HX: 1 stents, +Plavix, pancreatitis, PTSD, anxiety, depression. Tatianna Felipe RN [facility] Pyf0056-05-16 21:31:28 Thank you for choosing us for your medical care and it was a pleasure taking care of you. Your provider s name is nurse practitioner Cathy Alegria DNP, VIDEO SPECIALIST-. Follow up with your primary care provider [...] NO PHYSICIAN MONTSERRAT TERRAZAS MD Work Phone: [address] [address] AIDEN SOLANO MD Work Phone: [address] [place] [phone] ENTER NAME IN NOTES OTHER ENTER NAME [...] is unavailable Patient Instructions <tbody> Otitis Externa, Tyyw-ix-Fqcn Allergic Rhinitis, Adult, Ea sy-to-Read Ovarian Cyst, Ldkv-qj-Umsi Abdominal Pain, Adult, Easy- to-Read Renal Mass Nonspecific Chest Pain, Adul t, Ofvn-rj-Drqp Acetaminophen; Hydrocodone t ablets or capsules Sucralfate tablets Pantoprazole tablets Ciprofloxacin tablets Nonspecific Chest Pain, Adul t, Rtoa-oz-Vpep Alprazolam tablets Trazodone Tablets Aspirin Tablets Urinary Tract Infection, [place] lt, Mpvo-ef-Qyqb Dehydration, Adult, Easy-to- Read Urinary Tract Infection, [place] lt, Nbtu-mo-Rjij Chest Wall Pain, Easy-to-[place] d Nausea, Adult, Cthe-wd-Hluv Nonspecific Chest Pain, Adul t Nonspecific Chest Pain, Adul t, Lqyl-ih-Fmnv Renal Colic, Jwfw-pe-Gbbc Hematuria, Adult Chest Wall Pain, Easy-to-Tiesha d [facility] [id number] 21:50:29 Pt requesting to leave AMA. ERP notified. PT counseled to remain, risk of leaving AMA including discussed with pt. Pt continued to decline further ER evaluation at this time. AMA papers signed,witnessed, and placed on patients chart. Pt left ambulatory. GCS 15, and A&Ox4. Connie Rivera RNUniversity Hospitals St. John Medical CenterHmzeof3225-94-97 20:00:15 EKG done at 1957 and given to ER provider. [facility] CenterVyrxub3734-71-65 19:51:23 Patient comes in with chest pain and shortness of breath that started about 45-60 minutes. Patient denies otc medications. Also reports nausea. Patient found on the floor in the waiting room when checking in. Provider in triage with customs entry writer. Skin p/w/d, rr equal and non labored. A&Ox4. Talking in full sentences. Riddhi Su [facility]Rlgqua8410-14-55 13:25:33 Problem: Falls, Risk of Goal: Absence [...] parameters Outcome: Adequate for discharge Maame Chen Replaced by [facility] AnsonVuohfd8257-10-91 01:17:18 Problem: Falls, Risk of Goal: Absence [...] within specified parameters Outcome: Progressing as expected [place] [id number] 22:27:16 Patient admitted to [facility] Med Surg for diagnosis of Chest pain Patient agrees to admission, discussed plan of care with patient and family. Patient is awake, alert, oriented, resp reg unlabored, color appropriate for race, PIV intact No adverse reaction to medications administered while in ED Belongings with patient to unit Report to Sneha RAMIREZ T Santi Delgadillo [place] 605225-05-22 22:26:34 Nurse Report Report given to Sneha RAMIREZ. Chief complaint, assessment findings, infusion verify and orders reviewed. Santi Delgadillo RN [place] [id number] 20:45:[address] Kwok pertaining to medication orders. BP was rechecked to be 125/[address] Kwok stated to hold the Nitro Paste, continue the Haldol 2mg administration, and give the Bromide PRN. [place] [id number] 17:49:47 Pt [facility] ED [facility] constant CP that radiates into her L shoulder and down her arm x 1 hour. Reports it is aggravated by movement/exertion. EMS gave nitro x 1, pt had no relief. Pt also took 324mg ASA. Reports fatigue and generalized malaise for the past week. Hx of one stent placement 1 yr ago. T Adeline Montelongo Replaced by [facility] AnsonOucsnm2784-20-62 17:48:00 [facility] Emergency Department Note Patient Name: Charity Roca Date of : 1980 44 year old female Treatment Room: [facility] FT/[id number] Primary Care Physician: Riddhi Montes Patient Escorted by: Self [9] Mode of Arrival: EMS - [facility] [45] EMS Treatment Prior to ED Arrival: HOME THERAPY TEACHER treatment: Aspirin;NTG HOME THERAPY TEACHER treatment comments: 324mg ASA Travel and Exposure [...] vw Cbc with Diff Comp. Metabolic Panel (71809) Lipase Magnesium N-Terminal Pro-Bnp Troponin I No [...] signed by: Klaudia Narvaez DO 11/26/24 2321 . [facility] - [id number] 15:49:26 Patient Care Team <thead> Team Status: Active Member Role Status Dates ENTER NAME IN NOTES OTHER primary care physician Nida TYSON MD Emergency Provider Active SOLEDAD ALONSO Admitting Provider Active SOLEDAD ALONSO Attending Provider Active JAN COX Next of Kin Active PIYUSH JUAREZ Emergency Contact Active CHARITY ROCA Guarantor Active [facility] Rsq0027-72-12 15:49:26 Thank you for choosing us for your medical care and it was a pleasure taking care of you. Your provider s name is nurse practitioner Cathy Alegrai DNP, VIDEO SPECIALIST-. Follow up with your primary care provider [...] NO PHYSICIAN MONTSERRAT TERRAZAS MD Work Phone: [address] [address] AIDEN SOLANO MD Work Phone: [address] [place] [address] ENTER NAME IN NOTES OTHER ENTER NAME [...] Place in Observation October 13, 2024 11:17pm Oct 11:15pm Resuscitation Status October 13, 2024 11:19pm [...] is unavailable Patient Instructions <tbody> Otitis Externa, Kifk-ac-Nwcz Allergic Rhinitis, Adult, Ea sy-to-Read Ovarian Cyst, Hxhq-tq-Oeho Abdominal Pain, Adult, Easy- to-Read Renal Mass Nonspecific Chest Pain, Adul t, Rpqo-kn-Koox Acetaminophen; Hydrocodone t ablets or capsules Sucralfate tablets Pantoprazole tablets Ciprofloxacin tablets Nonspecific Chest Pain, Adul t, Zacw-yw-Zblz Alprazolam tablets Trazodone Tablets Aspirin Tablets Urinary Tract Infection, Milton lt, Vxvf-tu-Blkd Dehydration, Adult, Easy-to- Read Urinary Tract Infection, [place] lt, Vrzk-cg-Bztn Chest Wall Pain, Easy-to-[place] d Nausea, Adult, Acyf-dx-Axts Nonspecific Chest Pain, Adul t Nonspecific Chest Pain, Adul t, Pxft-ng-Olnd Renal Colic, Fuik-lc-Bzem Hematuria, Adult [facility] [id number] 22:15:04 Radiology reported to RN that pt was not in room when he arrived to take her for CT. Aprox 10 min later pt still not in room. Pt eloped before dispo. 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 [facility] - Yffzkj0293-52-81 01:03:17 Pt given printed and verbal discharge [...] gait, in no apparent distress, Angelita Patino [place] 120055-05-06 19:56:35 Pt given urine cup and placed back into lobby with instructions for collecting urine sample. [place] 605225-05-06 19:52:11 Pt arrived ambulatory without assist. Pt c/o left lower abd pain that started around 12pm today. Shaneka Atkinson [place] 120055-05-06 19:51:00 [facility] Emergency Department Note Patient Name: Charity Roca Date of : 1980 44 year old female Treatment Room: [facility] ED [facility] Primary Care Physician: Riddhi Montes Patient Escorted by: Family [5] Mode of Arrival: Personal means [1] EMS Treatment Prior to ED Arrival: HOME THERAPY TEACHER treatment: None Travel and Exposure Screening: Symptoms [...] History provided by: Patient and medical records movement education specialist used: No Abdominal Pain Pain location: LUQ [...] Additional chronic findings as detailed above. RL: 1940 End of Report Lab Results: Lab Results [...] 0.01 - 0.07 10*3/uL COMP. METABOLIC PANEL (97477) - Abnormal NA 137 135 - 145 [...] contrast Cbc with Diff Comp. Metabolic Panel (54202) Urinalysis POCT TEST Lipase Orders Placed This [...] illness or injury Details: Will follow-up with OB-COLOR TELEVISION CONSOLE MONITOR Amount and/or Complexity of Data Reviewed Labs: [...] follow-up Riddhi Montes Relationship: PCP - [place] [address] [facility] [id number] Electronically signed by: Bob Garcia MD 11/11/24 0024 [facility]2025-04-30 10:58:35 Pt tolerating meals Up with minimal assist Right site clean, dry and intact; covered with gauze and tegaderm [facility] Laya Langley RNUniversity Hospitals St. John Medical CenterHlumww4921-33-73 06:19:25 Problem: Falls, Risk of Goal: Absence [...] breakdown Outcome: Progressing as expected Anuradha Heard Replaced by [facility]sonVtriah4893-91-20 19:16:34 Problem: Falls, Risk of Goal: Absence of falls Outcome: Progressing as expected Problem: Discharge Planning Goal: Adequate to move to next level of care Outcome: Progressing as expected Goal: Knowledge of medication management Outcome: Progressing as expected T Renato Mott Replaced by [facility]sonHwamnx0547-29-23 04:24:10 Problem: Falls, Risk of Goal: Absence [...] Goal: Patent airway Outcome: Progressing as expected T Omaira Diaz Replaced by [facility] AnsonGpgftw2316-57-16 07:22:14 Problem: Falls, Risk of Goal: Absence [...] Omaira Diaz RN Outcome: Progressing as expected [place] 723965-04-28 07:21:23 Problem: Falls, Risk of Goal: Absence [...] Goal: Patent airway Outcome: Progressing as expected [facility]2025-04-27 14:02:33 Report given to JAMES Trejo. [facility] Susie Willard RNUniversity Hospitals St. John Medical CenterRapfmu7503-42-55 08:41:16 Images from the original note were not included. Pharmacy Recommendations for Patient Admission: Consider lowering dose of famotidine to 20mg once daily as patient has been taking this dose at home. The HOME THERAPY TEACHER medication list has been updated and reflected in the chart below. Please use the HOME THERAPY TEACHER Med List for ordering home doses during admission. Patient Adherence: Adherent to all medications. Source(s) used in interview: Patient Interview limitations: None Medications Added Medications Removed Medications Modified Alprazolam dose reduced to 1mg BID prn Famotidine ordered as 20mg BID Methocarbamol ordered as 500mg Q6H prn Allergies as of 10/31/2024 (No Known Allergies) Pharmacy Updated HOME THERAPY TEACHER Med List Medication Sig aspirin 81 mg [...] in the evening.) Outpatient Pharmacy Contact Information: [facility] [id number] - [place], [place] - [address] [facility] [address] [facility] [address] [facility] - [place], [place] [address] [facility] [address] [facility]/pharmacy #[id number] - [place], [place] - [address] [address] Thank you for the opportunity to participate in the care of this patient. Surekha Rowland RPH 8:38 AM, 11/01/2024 [facility] Department of Pharmacy [facility] Phone: ADC: [phone] [facility] Surekha Rowland RPHUCarePartners Rehabilitation HospitalDougdo9670-37-44 01:15:13 Problem: Falls, Risk of Goal: Absence [...] Absence of infection Outcome: Progressing as expected [facility]2025-04-27 00:27:06 Patient states pain to chest no 6/10-appears much more comfortable, Bp normotensive. Transported via W/C to 2217. Patient alert, warm, dry, pink, in no distress upon departure from ER [facility]2025-04-27 00:22:38 Nurse Report Report given to Bhupinder RAMIREZ. Chief complaint, assessment findings, infusion verify and orders reviewed. Plan of care discussed at bedside with patient. Patient verbalized understanding. MAGGIE CACERES RN [facility]2025-04-26 23:15:00 Patient continues to C/O persistent sharp midsternal chest pain 9/10. Medicated as ordered with GI cocktail po and Morphine 4 mg IV. [facility]2025-04-26 22:15:00 Dr Garcia at bedside. Medicated with NTG 0.4 mg Sl for sharp chest pain 10/10 without relief. Patient then medicated with Zofran 4 mg Iv and Morphine 4 mg IV as ordered. Patient anxious, hypertensive. [place] [id number] 21:36:50 C/O onset sharp midsternal chest pain that radiates to left arm, left shoulder, and left scapula area-has been steadily worsening. Has had nausea and vomiting. Patient has had NC in the past, has cardiac stent X1 placed in September of last year. O2 at 2 liters/min placed without improvement to chest pain. [facility] Maggie Caceres [facility]placed by [facility]sonDwuubt1116-29-76 21:24:00 Associated Order(s): EKG-12 Lead ROUTINE ONCE Pre-Procedure Diagnose(s): Chest pain, unspecified type Post-Procedure Diagnose(s): Chest pain, unspecified type [facility] Emergency Department Note Patient Name: Charity Roca Date of : 1980 44 year old female Treatment Room: [place] [address] Primary Care Physician: Riddhi Montes Patient Escorted by: Family [5] Mode of Arrival: Personal means [1] EMS Treatment Prior to ED Arrival: HOME THERAPY TEACHER treatment: Other (comment) HOME THERAPY TEACHER treatment comments: Protoniz, 4 baby ASA, Toradol [...] been vomiting about five times today. 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 No known aggravating or relieving factors. Pt has taken ASA 324 mg HOME THERAPY TEACHER in the ED. Pt smokes 1/3PPD , No ETOH. Deneis any illcit drug use. No prolonged immobilization. No OCA. No leg edema or calf pain. Deneis any URI symptoms. No abdominal pain History provided by: Significant other and patient movement education specialist used: No Chest Pain Pain location: Epigastric [...] S/P Stent X 06 September 2023 Q-wave NC Tetanus received in last 5 years: Unknown [...] reflect atelectasis or infiltrate. RL: 781 AFC: 92359 Lab Results: Lab Results COMP. METABOLIC PANEL (83024) - Abnormal Result Value Ref Range NA [...] 1 vw TROPONIN I COMP. METABOLIC PANEL (62123) LIPASE, SERUM CBC WITH DIFF POCT Test Cbc with Diff Basic Metabolic Panel (NA, K, CL, CO2, GLUCOSE, BUN, CREATININE, CA) Troponin I Procalcitonin Influenza A B RSV COVID NAAT Lab Only COVID Interpretation N-Terminal Pro-Bnp Lipid Panel (20388)(Total Cholesterol, Triglycerides, HDL) Glycosylated Hemoglobin (A1C) Urinalysis [...] care. AdmissionCare documentation entered by: Bob Garcia [facility] [email or web address], 28th edition, Copyright ? 2023 [facility] [employer] All Rights Reserved. [id number]:59:01-05:00 ED COURSE Diagnosis/Impression as of 11/03/24 0459 Chest pain, unspecified type Procedures: EKG-12 Lead ROUTINE ONCE Date/Time: 10/31/2024 9:32 PM Performed by: Bob Garcia MD Authorized by: Bob Garcia MD ECG interpreted by ED Physician in the absence of a microfilm operator: yes Previous ECG: Previous ECG: Compared to [...] - Observation Condition -- Comment Treatment Team: [facility] [[id number]] Discharge Medications: Current Discharge Medication List STOP [...] signed by: Bob Garcia MD 11/03/24 0459 . [facility] - Sewelq5377-15-27 21:24:00 AdmissionCare Guideline: Chest Pain, Inpatient Based [...] care. AdmissionCare documentation entered by: Bob Garcia [facility], 28th edition, Copyright ? 2023 [facility] [employer] [facility] All Rights Reserved. [id number]:59:01-05:[address] [facility] CenterRklifc6050-36-59 23:53:58 Awake, alert oriented X4, respiratory even [...] the lobby with steady gait. Connie Rivera Replaced by [facility] AnsonFudvgz3413-10-48 20:14:29 Patient arrived ambulatory to ED c/o upper abdominal pain that radiates to the left side. Went to PCP today and they told her if it was still hurting come to the ER. Toradol taken today with no relief. States she feels like it is her pancreas. Jen Merrill Replaced by [facility] AnsonTeiwzp2438-35-20 20:12:00 [facility] Emergency Department Note Patient Name: Charity Roca Date of : 1980 44 year old female Treatment Room: TX1/TX1 Primary Care Physician: Riddhi Hundl Patient Escorted by: Family [5] Mode of Arrival: Personal means [1] EMS Treatment Prior to ED Arrival: HOME THERAPY TEACHER treatment: Medication (comment) HOME THERAPY TEACHER treatment comments: Toradol Travel and Exposure Screening: [...] 0.01 - 0.07 10*3/uL COMP. METABOLIC PANEL (72323) - Abnormal NA 136 135 - 145 [...] contrast Cbc with Diff Comp. Metabolic Panel (29316) Lipase Urinalysis Orders Placed This Encounter Medications [...] A) Hiatal Hernia, UTI Disposition/Condition: Home, Pepcid, Bromide/Zofran prn, Cefdinir x 7 days, ER warnings, [...] Electronically signed by: Juanjose Barker MD 10/23/242340 [facility] CenterQnccto4707-99-69 10:16:39 Patient is here for a follow up from the hospital for chest pain and back pain. She needs a refill on the Hydroxyzine Pamoate 50 mg. She scored high for depression and anxiety but reports that she is able to use her coping mechanisms, has a place where she feels safe, and a safe person. [facility]2025-04-09 19:51:24 Patient Care Team <thead> Team Status: Active Member Role Status Dates ENTER NAME IN NOTES OTHER primary care physician Nida TYSON MD Emergency Provider Active SOLEDAD ALONSO Admitting Provider Active SOLEDAD ALONSO Attending Provider Active JAN COX Next of Kin Active PIYUSH JUAREZ Emergency Contact Active CHARITY ROCA Guarantor Active [facility]2025-04-09 19:51:24 [facility]2025-04-09 19:51:24 Future Tests Future scheduled test information is unavailable Pending Tests <thead> Test Name Ordered Date Scheduled Date Troponin T High Sensitivity October 14, 2024 11:1 7pm Future Visits Future appointment information is unavailable Referrals to Other Providers <thead> Reason for Referral Referral Start Date Provider Provider Contact Information Provider Address NO PHYSICIAN NO PHYSICIAN MONTSERRAT TERRAZAS MD Work Phone: [address] [facility] [address] AIDEN SOLANO MD Work Phone: [address] [facility] [address] [facility] [address] ENTER NAME IN NOTES OTHER ENTER NAME [...] 132024 11:20pm Narcan October 13, 2024 11:19pm October h, 2024 11:20pm Zofran October 13, 2024 11:19pm October, 2024 11:20pm Colace October 13, 2024 11:19pm October 9:00am HOB Elevated 30 Degrees October 13, [...] is unavailable Patient Instructions <tbody> Otitis Externa, Ihzq-ms-Fbya Allergic Rhinitis, Adult, Ea sy-to-Read Ovarian Cyst, Ceyv-oo-Ngux Abdominal Pain, Adult, Easy- to-Read Renal Mass Nonspecific Chest Pain, Adul t, Adoj-gr-Jkiu Acetaminophen; Hydrocodone t ablets or capsules Sucralfate tablets Pantoprazole tablets Ciprofloxacin tablets Nonspecific Chest Pain, Adul t, Sryf-qi-Seaq Alprazolam tablets Trazodone Tablets Aspirin Tablets Urinary Tract Infection, Milton lt, Vpof-zo-Bobb Dehydration, Adult, Easy-to- Read Urinary Tract Infection, Milton lt, Cxyj-fa-Vujt Chest Wall Pain, Easy-to-Tiesha d Nausea, Adult, Lxes-ck-Nwxx Nonspecific Chest Pain, Adul t Nonspecific Chest Pain, Adul t, Uccd-vi-Lvzi [facility]2025-04-08 02:45:03 Pt given printed and verbal discharge [...] gait, in no apparent distress. Jeana Pringle Replaced by [facility]sonFzqzkk5697-17-13 22:25:27 Pt arrived ambulatory without assist. Pt c/o chest pain that started around 8pm, and UTI symptoms that started yesterday. Shaneka Atkinson Replaced by [facility] AnsonRwwtsy5174-92-44 01:23:02 Pt given printed and verbal discharge [...] with steady gait, in no apparent distress, [place] [address]-01-12 00:57:31 ERP at bedside. [place] [address]-01-12 00:09:25 07/18/24 2356 07/19/24 0000 07/19/24 0008 Orthostatic Vitals BP 132/56 (!) 139/92 (!) 157/112 BP Location Left arm Left arm Right leg Position Lying Sitting Standing Pulse 79 78 78 NYA Merrill [place] [address]-01-11 23:44:12 Patient states "feeling like crap. Every time I stand up everything gets dizzy, black, and I feel like I am going to pass out." [place] [address]-01-11 22:39:11 Pt [facility] by [facility]. [...] and pain in back. Pt went to [facility] yesterday and they said she was low on potassium (was given 4 tablets of potassium). Pt took home medications today ULTURIST Shaneka Atkinson Replaced by [facility] AnsonUvpgdt7533-96-64 01:30:39 PT D/C home. GCS15, VS stable. Given D/C paperwork. Pt ambulatory at time of discharge. Pt educated on med usage, follow up care, s/s worsening condition, need for hydration. Pt verbalized understanding. Pt ambulated from ED in [facility], pt reports her father is in parking lot waiting for her. Pt verbalized understanding that she needs to have someone drive her home. NYA Ayala Replaced by [facility] AnsonHcefwb9521-21-66 19:51:20 Pt arrives ambulatory to ED c/o N/V/D x3 days and says today began having right side abdominal pain. NYA Rios Replaced by [facility] AnsonViriwh9939-30-37 02:58:12 Pt given printed and verbal discharge [...] with steady gait, in no apparent distress. [facility]2024-12-15 01:57:43 Pt arrives ambulatory to ED c/o "spider bite" upper right abdomen area. She says she squeezed it right before coming in and puss came out of it, leaving a black hole. So she came in to be evaled. NYA Rios Replaced by [facility] AnsonQnktmv5946-67-94 00:27:31 Pt given printed and verbal discharge [...] gait, in no apparent distress, NYA Delgadillo Replaced by [facility] AnsonXudksw6282-57-40 22:55:00 Report given to JAMES Delgadillo [facility] Briseida Emery Replaced by [facility] AnsonDmpkvq3168-82-65 21:23:27 Patient arrived ambulatory to ED c/o abdominal pain that started Saturday. Patient recently had heart cath placed on . States "haven't been keeping anything down. I can't even keep my medications down." [facility] Jen Merrill [place] [address]-12-01 02:39:24 Pt given printed and verbal discharge [...] gait, in no apparent distress, NYA Delgadillo Re[facility] by [facility] AnsonMxiiel7891-14-28 00:46:48 Report to Leona RAMIREZ. NYA Montelongo Replaced by [facility] AnsonKmtvuc8242-53-71 22:01:17 Patient arrived ambulatory to ED c/o chest pain that started around 1900 tonight. Patient took 4 baby ASA HOME THERAPY TEACHER. Sharp chest pain that radiates to left shoulder. ULTURIST Jen Merrill [place] [address]54-11-21 13:02:38 Chief Complaint Patient presents with Shoulder Pain Pt complains of left shoulder pain that has been in pain for last 3 years. Pain is getting worse. No injury. No occupation. Pt has been doing PT for shoulder. She is also taking methocarbamol for pain however it is not helping. NYA Zazueta Tnwbjj9793-55-70 13:33:08 Patient given discharge instructions with readback, discussed prescriptions and follow up care. . Steady gait with NAD noted. NYA Giles V Replaced by [facility] AnsonFfcrli4581-29-34 11:42:01 Patient had a fall on Saturday and came into ED to be seen. Had pain meds and scan performed with no significant findings. Patient called her PCP and they told her to go to ER because she could have a concussion or just feel worse. NYA Cronin Replaced by [facility] AnsonHnupty1020-61-40 10:27:22 Chief Complaint Patient presents with Physical Patient is fasting. No other issues to discuss Jennifer Del Castillo MA II [facility]olRiverView [facility] ClinicYfsjxj3395-59-64 22:18:24 Pt given printed and verbal discharge [...] gait, in no apparent distress, NYA Delgadillo Replaced by [facility] AnsonVngfsq3733-09-87 20:40:54 Okay to release information to father Piyush Roca per patient NYA Atkinson Replaced by [facility] AnsonNcvxjz3488-56-71 20:18:[address] scan and brought to [facility] with RN and trauma team. Continuous cardiac monitoring and serial vital signs monitored by Santi RAMIREZ. Santi Delgadillo RN [place] [address]-11-10 19:58:[address] scan with RN and trauma team. Continuous cardiac monitoring and serial vital signs monitored by Santi RAMIREZ. Santi Delgadillo RN [place] [address]-11-10 18:55:00 Received report from Juliano RAMIREZ [place] [address]-11-10 18:35:54 Report received from EMS. Trauma protocol initiated. Trauma team members at bedside, primary and secondary survey in progress. Pt placed on continuous cardiac monitoring, pulse oximetry, and serial vital signs. Wellington Dorantes RN [place] [address]-11-10 18:31:04 Patient arrived by [facility], tripped over a floor tile and hit the occipital area. Unsure of LOC. Patient received 10mg of reglan and morphine 4mg HOME THERAPY TEACHER. [facility] [place] Dorantes RNJac[place] [address]-10-31 21:32:31 Patient discharged to home. Patient given [...] gait in no apparent distress. Cameron Posada [facility] - Hsmowa6349-47-89 18:45:11 Pt arrived ambulatory with complaints of lower back pain, lower abdominal pain, and dysuria since yesterday. Took Tramadol at 2pm Aline Lou [facility] - Pmmpsg1932-75-23 06:28:23 Patient Care Team <thead> Team Status: Active Member Role Status Dates ENTER NAME IN NOTES OTHER primary care physician Nidhi MG JR, JR., MD Emergency Provider Active JAN COX Next of Kin Active PIYUSH JUAREZ Emergency Contact Active CHARITY ROCA Guarantor Active [facility]2024-10-09 06:28:23 THANK YOU FOR CHOOSING US FOR YOUR MEDICAL CARE AND IT WAS A PLEASURE TO TAKE CARE OF YOU: PUSHPA RODRIGUEZ, MSN, EMPLOYMENT SUPERVISOR, [facility]- DIAGNOSIS: UTI, GASTROENTERITIS PRESCRIPTION: ZOFRAN AND MACROBID PER PRESCRIPTION DETAILS SENT TO [facility]: ROCEPHIN GIVEN IN ER FOLLOW [...] NO PHYSICIAN MONTSERRAT TERRAZAS MD Work Phone: [address] [facility] [address] AIDEN SOLANO MD Work Phone: [address] [place] [phone] ENTER NAME IN NOTES OTHER Future Procedures [...] VS - Adult August 31, 2023 6:49pm [facility]2023 6:45pm Electrocardiogram, Complete August 31, 2023 6:49pm [...] is unavailable Patient Instructions <tbody> Otitis Externa, Mkep-ux-Hnaq Allergic Rhinitis, Adult, Ea sy-to-Read Ovarian Cyst, Rtsz-ab-Rlim Abdominal Pain, Adult, Easy- to-Read Renal Mass Nonspecific Chest Pain, Adul t, Vzig-tz-Vlut Acetaminophen; Hydrocodone t ablets or capsules Sucralfate tablets Pantoprazole tablets Ciprofloxacin tablets Nonspecific Chest Pain, Adul t, Xfwm-dp-Mpua Alprazolam tablets Trazodone Tablets Aspirin Tablets Urinary Tract Infection, Milton lt, Glbe-on-Rfnm Dehydration, Adult, Easy-to- Read Urinary Tract Infection, Milton lt, Gwyp-bo-Pgmk [facility] Ayl3537-02-65 20:37:07 Pt given printed and verbal discharge [...] gait, in no apparent distress Renato Doan Replaced by [facility] AnsonLwmddw3613-87-38 18:50:37 Nurse Report Report given to renato. Chief complaint, assessment findings, infusion verify and orders reviewed. Plan of care discussed. Lola Reynoso RN Lola Reynoso Replaced by [facility] AnsonKrukdt3918-98-42 17:27:35 Pt arrived ambulatory complains of abdominal pain and points to her left upper abdominal. Pt states that last time she had this type of pain it was pancreatitis. Reports pain started at 1300 and reports pain is 9/10 and hurts whenever she eats. Harriett Mejia Replaced by [facility] AnsonQxffzm4273-91-93 11:11:13 Chief Complaint Patient presents with Shoulder Pain Left shoulder pain with limited range of motion x 6 months, takes OTC tylenol for the pain as needed but pain is getting worse. 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 Not working currently Marbin Tyjjrh5661-84-33 09:19:27 Chief Complaint Patient presents with Hospital F/U [facility] ER follow up with admission on 12/04/2023 for chest pains. She had a stent placed by Dr. Arthur. Jennifer Del Castillo MA II Jennifer Cancino Rwtfuy6632-10-90 10:49:31 Chief Complaint Patient presents with Anxiety Follow up on anxiety/depression. She states that it has gotten worse since last visit. She had an appointment with [facility] this morning and it was canceled due to internet outage. Jennifer Del Castillo MA II Jennifer Cancino Rmpkid1755-31-47 13:21:02 Chief Complaint Patient presents with [facility] Patient [facility] told her she needed to go to a different doctor because they could not give her anything else Marbella Oh LVN Marbin Qxmidt7757-01-83 00:41:45 Pt given printed and verbal discharge [...] & in no apparent distress. Becky Rios Replaced by [facility] AnsonGhqkwc2333-52-44 21:25:46 Pt arrived ambulatory but states feeling like she is going to pass out, Pt placed in ED wheelchair. Pt c/o " I have pain in my back on the left side, it mark when I pee, Im nauseous, I feel like Im going to pass out and I have been crapping on myself." Shaneka Atkinson [place] [address]-12-25 22:58:41 Pt discharged with diagnosis of RUQ abd pain and chronic abd pain. Printed and verbal instructions reviewed with and given to pt. Prescriptions given x 2. Pt verbalized understanding of teaching, medications, and recommended follow-up. Denies questions or concerns at this time. Pt ambulatory at discharge. Appears in no apparent distress. No ataxia noted. ULTURIST Adeline Floyd Replaced by [facility] AnsonSuwwaj9878-01-44 19:46:03 Pt states sharp pain to the RLQ that started today around noon, pt denies any urinary symptoms, vomiting X 2 ULTURIST Razia Yost Replaced by [facility] AnsonLsadqy0331-62-33 00:14:00 Awake, alert oriented X4, respiratory even [...] noted upon discharge Pt ambulated to the [facility] with steady gait Razia Yost [place] [address]53-09-02 23:06:10 Received report from Evy RAMIREZ, assuming care. Brandy Lou [place] [address]-09-02 22:38:[address] scan done. Patient states LQ abdominal pain now 01/14. T Maggie Caceres [place] [address]-09-02 22:00:00 POCT test negative. Patient states RLQ abdominal pain improved briefly with IV Morphine administration, then returned at 03/17. Dr Richards informed, and patient medicated as ordered with Fentanyl 75 mcg slow IVP. [place] [address]-09-02 21:00:00 Medicated as per order with Zofran 4 mg slow IVP and Morphine 4 mg slow IVP for RLQ abdominal pain 03/17. [place] [address]-09-02 20:17:52 Pt arrived ambulatory with complaints of RLQ abd pain since yesterday. Pt reports N/V/D. Last took Tylenol at 3pm. Denies dysuria but reports frequency. Hx: Anxiety, Depression, PTSD, Pancreatitis Aline Lou Replaced by [facility] AnsonAhacns2019-43-02 01:30:22 Discharged home ambulatory. Home instructions given. John Ventura [place] [address]53-08-25 19:32:44 Pt CO of N/V, left lower back pain, painful urination and diarrhea since yesterday, states she was admitted last week for pancreatitis. Pt already promethazine tablets today with no relief. 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 RL: 460 AFC: 10252 Lab Results: Lab Results CBC WITH DIFF [...] POCT PREG TEST DATE COMP. METABOLIC PANEL (34167) NA 139 135 - 145 mmol/L K [...] CONTRAST CBC WITH DIFF COMP. METABOLIC PANEL (08203) LIPASE URINALYSIS POCT TEST Orders Placed This [...] User Comments 03/01/232299 Medical Screening Begins BOB AGRCIA MD -- 03/01/232299 First Provider Evaluation BOB [...] signed by: Bob Garcia MD 03/02/23121 T [facility] - Tjtcip8947-02-87 02:22:03 Pt given printed and verbal discharge [...] leaving in no apparent distress, Linda Ayala Replaced by [facility] AnsonLnqoyb1323-50-69 22:53:36 Pt arrived ambulatory with complaints of [...] might be from her anxiety. Aline Lou Replaced by [facility] AnsonUppqzk5246-47-35 15:59:15 Problem: Pain Goal: Control of pain [...] communication Outcome: Adequate for discharge Beata Lamar Replaced by [facility] AnsonMevlxt7136-95-61 00:21:19 Problem: Pain Goal: Control of pain [...] Goal: Effective communication Outcome: Progressing as expected [place] 723963-08-12 16:55:55 Problem: Pain Goal: Control of pain [...] Goal: Effective communication Outcome: Progressing as expected [place] 723963-08-12 03:35:03 Problem: Pain Goal: Control of pain [...] Goal: Effective communication Outcome: Progressing as expected [place] [address]-08-11 19:41:18 Nurse Report Report given to JAMES Gatica. Chief complaint, assessment findings, infusion verify and orders reviewed. Plan of care discussed with both nurses. Stacie Man RN [facility] Stacie Man RNUniversity Hospitals St. John Medical CenterCivwyh7184-04-49 13:40:01 CC: patient presents to the ER [...] without assistance. Appears in no distress. 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 Judgment: Judgment normal. Radiology: reviewed by co CT ABDOMEN PELVIS W CONTRAST Final Result [...] the ACR Incidental Findings Committee;Journal of the [place] Volume 7, Issue 10, Pages [phone], April 2010). CHEST 1 VW Final Result [...] process is identified in the chest. RL: 7056 END OF REPORT Lab Results: reviewed by [...] 0.01 - 0.07 10*3/uL COMP. METABOLIC PANEL (17767) - Abnormal NA 138 135 - 145 [...] INTERPRETATION CBC WITH DIFF COMP. METABOLIC PANEL (08288) LIPASE Orders Placed This Encounter Medications ibuprofen [...] ED Physician in the absence of a microfilm operator: yes Previous ECG: Previous ECG: Unavailable [...] this a planned re-admission?: No Treatment Team: [facility] [[id number]] Is this patient COVID positive or a patient under investigation (PUI)?: No Electronically signed by: Leeanne Wise NP 02/15/231910 Associated attestation - Bushra Rios DO - 02/16/2023 7:30 AM CDT I was personally available for consultation in the Emergency Department during this encounter and patient evaluation by Leeanne Wies. [facility]
[2025-03-04] MEDS ORDERED: ONDANSETRON 4 MG/2 ML VIAL ONE (00:20)
[2025-03-04] MEDS ORDERED: NA CHLORIDE 0.9% 1,000 ML ONE (00:20)
[2025-03-04] MEDS ORDERED: DICYCLOMINE HCL 20 MG/2 ML AMP IM ONE (00:20)
[2025-03-04 00:31] LABS: Absolute Lymphocytes (CBC) 3.6 K/uL (0.7-4.9); Hematocrit 37.5 % (36.0-45.0); Hemoglobin 11.9 g/dL (12.0-15.0); MCH 24.3 pg (27.0-35.0); MCHC 31.8 g/dL (32.0-36.0); MCV 76.5 fL (80-100); MPV 7.3 fL (7.6-11.3); Nucleated RBC Absolute Count 0.0 (0-0); Nucleated Red Blood Cells % 0.0 % (0-0); RBC Red Blood Cell Count 4.90 M/uL (3.86-4.86); White Blood Count 11.50 thou/uL (4.3-10.9)
[2025-03-04 00:44] LABS: ALT/SGPT 18 U/L (13-56); Albumin 3.0 g/dL (3.4-5.0); Albumin/Globulin Ratio 0.9 (1.1-1.8); Alkaline Phosphatase 75 U/L (45-117); Anion Gap 10.6 mEq/L (5.0-15.0); BUN Blood Urea Nitrogen 4 mg/dL (7-18); Globulin 3.3 g/dL (2.3-3.5); Glucose Level 99 mg/dL (74-106); Lipase 29 U/L (13-75); Potassium 3.6 mEq/L (3.5-5.1)
[2025-03-04 00:46] LABS: AST/SGOT < 10 U/L (15-37)
[2025-03-04] MEDS ORDERED: KETOROLAC 30 MG/ML INJ ONE (00:59)
--- NOTE | 2025-03-04 03:38 | RAD REPORT ---
CLINICAL HISTORY: Abdominal pain. COMPARISON: CT Abdomen Pelvis 11/15/2024. TECHNIQUE: CT ABDOMEN PELVIS WITHOUT IV CONTRAST on 03/04/2025 12:53 AM CDT This exam was performed according to our departmental dose-optimization program, which includes autom ated exposure control, adjustment of the mA and/or kV according to patient size and/or use of iterative reconstruction technique. FINDINGS: Lower lungs are clear. Abdomen: The liver is normal in appearance. There is no biliary dilatation. Cholecystectomy was perfo rmed. The pancreas and spleen are normal in appearance. Left adrenal adenoma measures 2.8 cm. Right adrenal gland and both kidneys are normal. Abdominal aorta is normal in course and caliber without aneurysm. There is no free air. There is no r etroperitoneal adenopathy. Pelvis: There is no bowel obstruction. Urinary bladder is unremarkable. There is no free fluid. Uteru s is normal in size. Appendix is normal. Skeleton: There are no acute osseous findings. No suspicious bony lesions. IMPRESSION: No acute process. Left adrenal adenoma. Electronically signed by: Florentino Bryan MD 03/04/2025 03:00 AM CDT RP Due to temporary technical issues with the [email or web address] reporting system, reports are being melita d by the in-house radiologist without review as a courtesy to ensure prompt reporting the interpreting radiologist is fully responsible for the content of the report. Transcribed Date/Time: 03/04/2025 3:37 AM
--- NOTE | 2025-03-04 03:44 | ER ---
Nurse's Notes [facility] Name: Charity Hanks Age: 45 yrs Sex: Female : 1980 Arrival Date: 03/03/2025 Time: 23:32 Bed 16 Private MD: Diagnosis: Abdominal pain, Generalized Presentation: 03/03 23:32 Chief complaint: Patient states: I am having a flare up. I have been having nausea, kd3 vomiting and diarrhea and severe stomach pain since this morning. 23:32 Coronavirus screen: Vaccine status: unknown. Ebola Screen: No symptoms or risks kd3 identified at this time. Initial Sepsis Screen: Does the patient meet any 2 criteria? No. Patient's initial sepsis screen is negative. Does the patient have a suspected source of infection? No. Patient's initial sepsis screen is negative. Risk Assessment: Do you want to hurt yourself or someone else? Patient reports no desire to harm self or others. Onset of symptoms was March 03, 2025. 23:32 Method Of Arrival: Ambulatory kd3 23:32 Acuity: CARLOS 3 kd3 Triage Assessment: 03/04 00:39 General: Appears uncomfortable, Behavior is anxious. Pain: Complains of pain in kd3 abdomen. GI: Abdomen is tender to palpation in right upper quadrant and left upper quadrant. Historical: - PMHx: 00:39 Anxiety; Pancreatitis; Myocardial infarction; depressive disorder; Hypertensive kd3 disorder; PTSD; - PSHx: 00:39 cardiac stent; Cholecystectomy; Tonsillectomy; kd3 - Immunization history:: Adult Immunizations up to date. - Infectious Disease History:: Denies. - Social history:: Smoking status: unknown. Screenin:46 [facility] ED Fall Risk Assessment (Adult) History of falling in the last 3 months, kd3 including since admission No falls in past 3 months (0 pts) Confusion or Disorientation No (0 pts) Intoxicated or Sedated No (0 pts) Impaired Gait No (0 pts) Mobility Assist Device Used No (0 pt) Altered Elimination No (0 pt) Score/Fall Risk Level 0 - 2 = Low Risk Maintained a safe environment. Abuse screen: Denies threats or abuse. Denies injuries from another. Nutritional screening: No deficits noted. Tuberculosis screening: No symptoms or risk factors identified. Assessment: :46 General: Appears uncomfortable, Behavior is calm, cooperative. Neuro: Level of kd3 Consciousness is awake, alert, obeys commands, Oriented to person, place, time, situation. Cardiovascular: Patient's skin is warm and dry. GI: Bowel sounds present X 4 quads. Reports upper abdominal pain. 01:46 Pain: Pain currently is 10 out of 10 on a pain scale. kd3 Vital Signs: 03/03 23:32 BP 117 / 82; Pulse 92; Resp 19; Temp 98.2(TE); Pulse Ox 99% on R/A; kd3 03/04 00:44 BP 122 / 92; Pulse 74; Resp 18; Pulse Ox 98% on R/A; kd3 01:47 BP 141 / 99; Pulse 87; Resp 19; Pulse Ox 98% on R/A; kd3 03:05 BP 163 / 109; Pulse 88; Resp 18; Pulse Ox 99% on R/A; kd3 ED Course: 03/03 23:35 Patient arrived in ED. gm2 23:39 Radha Titus FNP-C is PHCP. kb 23:39 Glen Mena MD is Attending Physician. kb 03/04 00:06 Jerri Can, JAMES is Primary Nurse. kd3 00:16 Inserted saline lock: 24 gauge in right ,using aseptic technique. breast Blood kd3 collected. Flushed with 10 mL NS. 00:17 Lipase Sent. kd3 00:17 CMP Sent. kd3 00:17 CBC with Diff Sent. kd3 00:39 Triage completed. kd3 01:35 CT Abd/Pelvis - Without Contrast In Process Unspecified. EDMS 01:47 Arm band placed on right wrist. kd3 01:47 Patient has correct armband on for positive identification. kd3 03:43 Margaret Serrano DO is Referral Physician. tw7 03:50 No provider procedures requiring assistance completed. IV discontinued, intact, kd3 bleeding controlled, No redness/swelling at site. Pressure dressing applied. 03:51 Provided Education on: medications . kd3 Administered Medications: 00:36 Drug: NS 0.9% IV 1000 ml IV at 1 bolus Per protocol; to be given as a bolus over 60 kd3 minutes Route: IV; Rate: 1 bolus; Site: Other; 00:36 Drug: Ondansetron IVP 4 mg IVP once; over 2 minutes Route: IVP; Site: Other; kd3 00:36 Drug: Dicyclomine IM 20 mg IM once Route: IM; Site: left deltoid; kd3 01:10 Drug: Ketorolac IVP 30 mg IVP once Route: IVP; Site: Other; kd3 Medication: 01:46 VIS not applicable for this client. kd3 Outcome: 03:44 Discharge ordered by . tw7 03:51 Discharged to home ambulatory, kd3 03:51 Condition: stable 03:51 Discharge instructions given to patient, Instructed on discharge instructions, follow up and referral plans. medication usage, Demonstrated understanding of instructions, follow-up care, medications, Prescriptions given X 2, 03:51 Patient left the ED. kd3 Signatures: Dispatcher [employer] EDRadha Guzman FNP-C FNP-Jerri Kumar RN RN kd3 Lola To 2 Glen Mena MD MD tw7
--- NOTE | 2025-03-04 03:44 | EDPHYS ---
Physician Documentation [facility] Name: Charity Hanks Age: 45 yrs Sex: Female : 1980 Arrival Date: 03/03/2025 Time: 23:32 Bed 16 Private MD: ED Physician Glen Mena HPI: 03/04 01:24 This 45 yrs old Female presents to ER via Ambulatory with complaints of Abdominal Pain. kb 01:24 Pt is a 45 year old female with a history of chronic pancreatitis who presents for kb upper abd pain, nausea, vomiting and diarrhea that started this morning. Denies fever. Historical: - PMHx: 00:39 Anxiety; Pancreatitis; Myocardial infarction; depressive disorder; Hypertensive kd3 disorder; PTSD; - PSHx: 00:39 cardiac stent; Cholecystectomy; Tonsillectomy; kd3 - Immunization history:: Adult Immunizations up to date. - Infectious Disease History:: Denies. - Social history:: Smoking status: unknown. ROS: 01:23 Constitutional: As per HPI kb Exam: 01:23 Constitutional: This is a well developed, well nourished patient who is awake, alert, kb and in no acute distress. Head/Face: Normocephalic, atraumatic. ENT: Moist Mucous membranes Cardiovascular: Regular rate Respiratory: Respirations even and unlabored. No increased work of breathing. Talking in full sentences Skin: Warm, dry with normal turgor. Normal color. MS/ Extremity: Pulses equal, no cyanosis. Neurovascular intact. Full, normal range of motion. Neuro: Awake and alert, GCS 15, oriented to person, place, time, and situation. 01:23 Abdomen/GI: Inspection: abdomen appears normal, Bowel sounds: normal, Palpation: soft, in all quadrants, moderate abdominal tenderness, in the epigastric area, Vital Signs: 03/03 23:32 BP 117 / 82; Pulse 92; Resp 19; Temp 98.2(TE); Pulse Ox 99% on R/A; kd3 03/04 00:44 BP 122 / 92; Pulse 74; Resp 18; Pulse Ox 98% on R/A; kd3 01:47 BP 141 / 99; Pulse 87; Resp 19; Pulse Ox 98% on R/A; kd3 03:05 BP 163 / 109; Pulse 88; Resp 18; Pulse Ox 99% on R/A; kd3 MDM: 03/03 23:39 Medical Screening Exam initiated 03/04 01:23 Differential diagnosis: gastritis, gastroesophageal reflux disease, non-specific abd kb pain, pancreatitis. Data reviewed: vital signs, nurses notes. 01:45 Transition of care: After a detail discussion of the patient's case, care is kb transferred to Glen Mena MD. 03/03 23:39 Order name: CBC with Diff; Complete Time: 00:52 kb 03/03 23:39 Order name: CMP; Complete Time: 00:52 kb 03/03 23:39 Order name: Lipase; Complete Time: 00:52 kb 03/04 00:53 Order name: CT Abd/Pelvis - Without Contrast 03/03 23:39 Order name: IV Saline Lock; Complete Time: 00:17 kb 03/03 23:39 Order name: Labs collected and sent; Complete Time: 00:17 kb Administered Medications: 00:36 Drug: NS 0.9% IV 1000 ml IV at 1 bolus Per protocol; to be given as a bolus over 60 kd3 minutes Route: IV; Rate: 1 bolus; Site: Other; 00:36 Drug: Ondansetron IVP 4 mg IVP once; over 2 minutes Route: IVP; Site: Other; kd3 00:36 Drug: Dicyclomine IM 20 mg IM once Route: IM; Site: left deltoid; kd3 01:10 Drug: Ketorolac IVP 30 mg IVP once Route: IVP; Site: Other; kd3 Disposition: 03:38 I reviewed the patient's care provided by Advanced Practice Provider \T\ agree w/ the tw7 diagnosis \T\ care plan. I personally saw the pt \T\ performed a substantive portion of the visit, incldng all aspects of the (History/Exam/Medical Decision Making). Disposition Summary: 03/04/25 03:44 Discharge Ordered Notes: Location: Home tw7 Problem: chronic tw7 Symptoms: are unchanged tw7 Condition: Stable tw7 Diagnosis - Abdominal pain, Generalized tw7 Followup: tw7 - With: Margaret Serrano, DO - When: Tomorrow - Reason: Re-evaluation by your physician Discharge Instructions: - Discharge Summary Sheet tw7 - Abdominal Pain, Adult tw7 Forms: - Medication Reconciliation Form tw7 - Antibiotic Education tw7 - Prescription Opioid Use tw7 - Patient Portal Instructions - Leadership Thank You Letter Prescriptions: - Zofran 4 mg Oral Tablet - take 1 tablet ORAL route every 12 hours As needed; 20 tablet; Refills: 0, Product Selection Permitted - Pepcid 20 mg Oral Tablet - take 1 tablet ORAL route once daily for 10 days; 10 tablet; Refills: 0, Product Selection Permitted Signatures: Dispatcher [employer] Radha Hill FNP-C FNP-Ckb Doucette, Kyli RN RN kd3 Glen Mena MD MD
[2025-03-04 14:23] VITALS: TEMP 98.2
[2025-03-04 14:28] VITALS: BP 163/109; O2SAT 99
== END 2025-03-04 03:51 | disposition home or self-care (01) ==
LOC: ER 23:32
DX: R10.84 Generalized abdominal pain (principal); R11.2 Nausea with vomiting, unspecified; Z95.818 Presence of other cardiac implants and grafts
CPT/HCPCS: 85025; 36415; 83690; 80053; 74176; 96375; 96372; 96374; 99284; J0500; J2405; J7030

== ENCOUNTER 2025-04-01 18:46 | Emergency (ER) | payer OTHER ==
--- OUTSIDE RECORDS SUMMARY | 2025-04-01 19:17 | XMS REPORT | Continuity of Care Document ---
Author Name Unknown Address [address] [facility] [place] [address] [facility] Address [address] [facility] [address] [place] [address] Support Name Relationship Address Phone RACHEL CASH Father Unknown Unavailable PHYSICIAN, NO Primary Care Physician Unknown Unav ailable MD MORA POLLOCK A Emergency Provider [address] [place] [address] JAN COX natural parent [address] [address] MD SHERIDAN MCMANUS Emergency Provider [facility] [address] CHARITY ROCA Guarantor [address] [place] [address] MD RIDDHI [place] [address] MD AN IRIZARRY Emergency Provider [facility] [address] MD AIDEN SOLANO A Primary Care Physician [address] [facility] 3 [place] [address] OTHER, ENTER NAME IN NOTES Primary Care Physician Unknown Unavailable MD Arelis Kern Emergency Provider [address] [place] [address] MD SHAN BUSCH Attending Provider [address] [place] [address] PIYUSH JUAREZ parent [address] [address] [place] [address] Leyda Villa Mother Unknown Unavailable Rachel Cox Father [address] [address] [place] [address] one else per patient, No Emergency Contact Unknown Unavailable Rachel Cox [address] [address] [place] [address] 1 Personal Relationship Unknown Unavai lable Unavailable Personal Relationship Unknown Unavai lable MD TAVARES MG JR, JR. Emergency Provider [address] [place] [address] MD DIONI TYSON Emergency Provider [id number] [place] [id number] [address] [facility] Attending Provider [address] [place] [address] Unavailable JAN COX [address] [place] [address] DO RYAN MIRANDA Emergency Provider [address] [place] [address] Unavailable Rachel Cox [address] [place] [address] PATIENT, NO ONE ELSE PER Personal Relationship Unknown Unavailable Care Team Providers [employer] Counter Assistant Name Role Phone OTHER, ENTER NAME IN NOTES Primary Care Physicia n Unavailable GISELLE OSORIO Attending Clinician Unavailable SHERIDAN MCMANUS Attending Clinician UnavailTHAI Palmer Attending Clinician Unavail able THAI GALO Attending Clinician Unavail able Shelley Kirkland RN Attending Clinician [phone] ANTHONY ROMAN Attending Clinician Unavailable RYAN MIRANDA Attending Clinician Unavailable RAMIREZ CALDERON Attending Clinician Unavailab VAHE Portillo Attending Clinician Unavailable CHRISTINA PAGE Attending Clinician Unavailable CYNTHIA ROMEO Attending Clinician Unavailable RIDDHI MONTES Attending Clinician Unavailable NAY ALMONTE Attending Clinician Unavailable NEO ALBARRAN Attending Clinician BOB Lay Attending Clinician Unavailable YARIMA, WAKILI S Attending Clinician Unavailable Josefa VILLANUEVA, Kiran Nino Attending Clinician [phone] ARELIS KERN Attending Clinician Unavailab le Doctor Unassigned, [place] Attending Clinician U ROBERTO Leon Attending Clinician Unavailable ROBERTO RICHARDS Attending Clinician Unavailable CATHY STRICKLAND Attending Clinician Unavailable MD BEHZAD Attending Clinician Unavailab Piper Jackson LVN Attending Clinician [phone] ALEXX KWOK Attending Clinician UnavailTATIANNA Garcia Attending Clinician Unavailable SARAH SHULTZ Attending Clinician Unavailable BUSHRA RIOS Attending Clinician Unavailab BUSHRA Bustamante Attending Clinician Unavailab bailee Garcia MD, Bob Shankar Attending Clinician [phone] KAUR SANDRA Attending Clinician Unavailab KAUR Kessler Attending Clinician Unavailab Zay Shipman MD Attending Clinician +[phone] Kaur Sandra MD Attending Clinician [phone] Elliott Kwok MD Attending Clinician [phone] Dane Jurado MD Attending Clinician [phone] FLORINDA REYES Attending Clinician Unavailable JUANJOSE BARKER Attending Clinician Unavailable JUANJOSE BARKER Attending Clinician Unavailable Juanjose Barker MD Attending Clinician [phone] SELENA DEL TORO Attending Clinician Unavailable CONRADO SMITH Attending Clinician Unavailable JÚNIOR FARRELL Attending Clinician Unavailable Saleem EDWARD Attending Clinician Unavailable Saleem EDWARD Attending Clinician Unavailable Saleme Perez Attending Clinician [phone] RADIOLOGY, DEPT Attending Clinician Unavailable SANDY GARCIA Attending Clinician Unavailable SANDY GARCIA Attending Clinician Unavailable Sandy Walker Attending Clinician + [phone] RAFAL WRIGHT Attending Clinician Unavailable Rafal Wright PA-C Attending Clinician [phone] Attending Clinician Unavailable Tammy Roy MD Attending Clinician + FARTUN GILLESPIE Attending Clinician Unavailable TAVARES MG JR Attending Clinician Unachristina Rojo NP, Jacque Attending Clinician [phone] COSMO Attending Clinician Unavailable SHAN BUSCH Attending Clinician Unavailable RIDDHI MYLES Attending Clinician UnavailNA Garcia Attending Clinician Unavailable KLAUDIA NARVAEZ Attending Clinician Unavailable Klaudia Narvaez DO Attending Clinician [phone] APPLE PADGETT S Attending Clinician Unavailable Apple Elam S Attending Clinician [phone] ZAY MONTERO Attending Clinician Unavailable Leeanne Wise NP Attending Clinician [phone] Zay Montero MD Attending Clinician +[phone] FELTON Attending Clinician Unavailable MELIDA LONGORIA Attending Clinician Unavailable Melida Longoria MD Attending Clinician +[phone] WIL MCQUEEN Attending Clinician Unavailable Wil Joseph Attending Clinician +[phone] APPLE WANG Attending Clinician Unavaila ble Ibclaudiaunbailee DISTILLERY LABORER, Folusho F Attending Clinician +[phone] Doctor Unassigned, [place] Attending Clinician U CEM Lance Attending Clinician Unavailable Cem Cruz MD Attending Clinician [phone] Shelley Rosas RN Attending Clinician [phone] Bal Cuevas Attending Clinician +[phone] BAL HASSAN Attending Clinician Unavailable EbTremaine Molina Attending Clinician [phone] TREMAINE BECERRA Attending Clinician Unavailable LEEANNE WISE Attending Clinician Unavailable MORA POLLOCK Attending Clinician Unavailable Best Rodríguez Attending Clinician [phone] BEST TAYLOR Attending Clinician Unavailable Marbella Rizo RN Attending Clinician Unavailab Abdias Vuong Attending Clinician +[phone] ABDIAS ROBERTSON Attending Clinician Unavailable Kamryn Sheppard RN Attending Clinician Unavail able SINCERE FRANK Attending Clinician Unavailable GUMARO ALVAREZ Attending Clinician Unavailable SARAH WILKINS Attending Clinician UnavailLISA Parker Attending Clinician Unavailable JW SOLORZANO Attending Clinician Unavailab SANIA Glover Attending Clinician Unavailable GINA MARTIN Attending Clinician Unavailable YIN RIOS Attending Clinician Unavailab ALBERTO Cason Attending Clinician Unavailable ANTHONY SCHNEIDER Attending Clinician Unavailabl DARCIE Moreno Attending Clinician Unavailable ARLETTE ROBERT Attending Clinician Unavailable GISELA RIOS Attending Clinician Unavail able HUGO COFFMAN Attending Clinician Unavailable THAI GALO Admitting Clinician Unavail able ANTHONY ROMAN Admitting Clinician Unavailable RAMIREZ CALDERON Admitting Clinician Unavailab ALEXX Wilcox Admitting Clinician UnavailBOB Diaz Admitting Clinician Unavailable ELLIOTT KWOK Admitting Clinician Unavailable Elliott Kwok MD Admitting Clinician JUANJOSE BARKER Admitting Clinician Unavailable SELENA DEL TORO Admitting Clinician Unavailable Saleem EDWARD Admitting Clinician Unavailable SANDY GARCIA Admitting Clinician Unavailable RAFAL WRIGHT Admitting Clinician Unavailable BOB GARCIA Admitting Clinician Unavailable ROBERTO RICHARDS Admitting Clinician Unavailable SHAN BUSCH Admitting Clinician Unavailable RIDDHI MYLES Admitting Clinician Unav KLAUDIA Thompson Admitting Clinician Unavailable ZAY MONTERO Admitting Clinician Unavailable Zay Montero MD Admitting Clinician FELTON Admitting Clinician [...] Number Effective Date Expirati on Date Source [place] [address] [facility] [place] 94 9 [id number] 2025 00:00:00 RMASES Caro/ KELLEE BUCKLEY OON [id number] 2025 00:00:00 [facility] BCBS BLUE ADVANTAGE HMO [id number] 2020 00:00:00 Problems Condition Name Condition Details Condition Category Status Onset Date Resolution Date Last Treatment Date Treating Clinician Comments Source Hypokalemi a Hypokalemi a Disease Active 03-04 00:00: 00 [facility] Gastroesop hageal reflux disease without esophagiti s Gastroesop hageal reflux disease without esophagiti s Disease Active 03-04 00:00: 00 [facility] Enteritis Enteritis Disease Active 03-04 00:00: 00 [facility] 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 Disease Active 01-07 00:00: 00 Kellee pinedo 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 01-07 00:00: 00 Kellee pinedo Coronary artery disease involving [place] coronary artery of [place] heart with angina pectoris Coronary artery disease involving [place] coronary artery of [place] heart with angina pectoris Disease Active 11-01 00:00: 00 [facility] Dyslipidem ia Dyslipidem ia Disease Active 11-01 00:00: 00 [facility] Generalize d abdominal pain Generalize d abdominal pain Disease Active 2023-07 0 00:00: 00 [facility] Coronary artery disease Coronary artery disease [...] HCC) Disease Active 12-02 00:00: 00 Kellee Seybold - Externa l PTSD (post-trau matic stress disorder) PTSD (post-trau matic stress disorder) Disease Active 5-28 00:00: 00 Kellee pinedo Elevated brain natriureti c peptide (BNP) level Elevated brain natriureti c peptide (BNP) level Disease Active 2020-07 0-02 00:00: 00 [facility] Cigarette smoker Cigarette smoker Disease Active 2020-07 0-02 00:00: 00 [facility] Family history of early CAD Family history of early CAD Disease Active 2020-07 0-02 00:00: 00 [facility] Essential hypertensi on Essential hypertensi on Disease Active 2020-07 0-02 00:00: 00 [facility] Elevated brain natriureti c peptide (BNP) level Elevated brain natriureti c peptide (BNP) level Disease Active 2020-07 0-02 00:00: 00 [facility] Snores Snores Disease Active 2020-07 0-02 00:00: 00 [facility] Morbid obesity with body mass index of 40.0-49.9 Morbid obesity with body mass index of 40.0-49.9 Disease Active 2020-07 0-01 00:00: 00 [facility] No known active problems No known active problems Disease [facility] Bilateral flank pain Problem [facility]ausea [facility] Hematuria [facility] Ren[facility] colic [facility] Abdominal pain Problem [facility] Acute coronary syndrome without high troponin Problem [facility] Adrenal mass Problem [facility] Adrenal nodule Problem [facility] Encounter for counseling regarding advance directives Problem [facility] Allergic rhinitis Problem [facility] Angina pectoris Problem [facility] Anxiety and depression Problem [facility] Chest pain [facility] Gastroente ritis Problem [facility] Malaise Problem [facility] Otitis externa of left ear [facility] Cyst [facility] ovary [facility] Anxiety [facility] Epigastric pain Problem [facility] Left against medical advice Problem [facility] Post traumatic stress disorder (PTSD) Problem [facility] Tobacco [facility] Urinary tract infection [facility] Allergies, Adverse Reactions, Alerts Allergy Name Allergy Type Status Severity Reaction(s) Onset Date Inactive Date Treating Clinician Comments Source NO KNOWN ALLERGIE S Drug Class Active [facility] Social History Social Habit Start Date Stop Date Quantity Comments Source Gender identity [facility] ASSERTION Possible [facility] History of Occupation [facility] Sexual orientation Saleem Buckley - External Alcoholic beverage intake 2025-01-07 00:00:00 2025-01-07 00:00:00 Current drinker of alcohol (finding) Kellee Buckley - External Tobacco use and exposure 2024-11-26 00:00:00 2024-11-26 00:00:00 Former smokeless tobacco user [facility] History of tobacco use 2024-11-12 00:00:00 Passive smoker [facility] History of Social function 2023-10-28 00:00:00 2023-10-28 [...] cigarettes/ day from 2 packs per day [facility] Exposure to SARS-CoV-2 (event) 2021-12-30 00:00:00 2022-01-09 16:34:00 Unable to assess [facility] Education 2021-04-07 00:00:00 2021-04-07 00:00:00 13 [facility] Sex assigned at 1980 00:00:00 1980 00:00:00 Kellee Buckley - [place] Smoking Status Start Date Stop Date Source Ex-smoker 2024-11-26 00:00:00 2024-11-26 [facility]00[facility] daily 2023-10-28 00:00:00 Kellee Davies Unknown if ever smoked [facility] Medications Ordered Medication Name Filled Medication Name Start Date Stop Date Current Medication? Ordering Clinician Indication Dosage Frequency Signature (SIG) Comments Components Source acetaminoph en (TYLENOL) tablet 650 mg 03-25 23:30: 00 03-26 11:29 :00 Yes 650mg 650 mg, Oral, ONCE, 1 dose, On [facility] 03/25/25 at 1830, ROSELYN [facility] pantoprazol e (PROTONIX) 40 mg in NaCl 0.9% (NS) 10 mL syringe 03-25 22:30: 00 03-25 22:52 :00 No 40mg 40 mg, Slow IV Push, Administer over 2 Minutes, ONCE, 1 dose, On [facility] 03/25/25 at 1730, Routine [facility] maalox/diph enhydrAMINE :lidocaine2 %viscous 1:1:1: suspension (COMPOUNDED ) 03-25 22:30: 00 03-25 22:54 :00 No 15mL 15 mL, Oral, ONCE, 1 dose, On [facility] 03/25/25 at 1730, Routine [facility] metoclopram tracy HCl (REGLAN) injection 10 mg 03-25 22:30: 00 03-25 22:49 :00 No 10mg 10 mg, Slow IV Push, ONCE, 1 dose, On [facility] 03/25/25 at 1730, ROSELYN [facility] enoxaparin (LOVENOX) injection 40 mg 03-08 22:00: 00 03-08 18:20 :13 No 40mg 40 mg, Subcutaneo us, DAILY AT 1700, First dose on Sat03/08/25 at 1700, Until Discontinu ed, Routine [facility] aspirin chewable tablet 81 mg aspirin chewable tablet 81 mg 03-08 14:00: 00 03-08 18:20 :13 Yes 81mg 81 mg, Oral, DAILY, First dose on Sat03/08/25 at 0900, Until Discontinu ed, Routine [facility] KCL (KLOR-CON M20) tablet 40 mEq KCL (KLOR-CON M20) tablet 40 mEq 03-08 13:30: 00 03-08 13:17 :00 Yes 40meq 40 mEq, Oral, ONCE, 1 dose, On Sat03/08/25 at 0830, Routine [facility] cloNIDine (CATAPRES) tablet 0.1 mg cloNIDine (CATAPRES) tablet 0.1 mg 03-08 05:45: 00 03-08 05:03 :00 Yes .1mg 0.1 mg, Oral, ONCE, 1 dose, On Sat03/08/25 at 0045, Routine [facility] hydralAZINE (APRESOLINE ) injection 10 mg 03-08 05:45: 00 03-08 18:20 :13 No 10mg 10 mg, Slow IV Push, Q4HPRN, Starting on Sat03/08/25 at 0045, Until Sat03/08/25 at 1320, Routine, DBP=>100; SBP=>160 [facility] HYDROmorpho ne (DILAUDID) injection 1 mg HYDROmorpho ne (DILAUDID) injection 1 mg 03-08 05:45: 00 03-08 05:04 :00 Yes 1mg 1 mg, Slow IV Push, ONCE, 1 dose, On Sat03/08/25 at 0045, Routine, Is this medication approved by a Faculty level provider? 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 : ALEXX KWOK [facility] HYDROcodone -acetaminop hen (NORCO 5) 5-325 mg tablet 1 tablet HYDROcodone -acetaminop hen (NORCO 5) 5-325 mg tablet 1 tablet 03-08 00:21: 21 03-08 18:20 :13 Yes 1{tbl} 1 tablet, Oral, Q6HPRN, Starting on Sat03/07/25 at 1921, Until Sat03/08/25 at 1320, Routine, Pain (scale 7-10) [facility] nitroglycer in (NITROSTAT) sublingual tablet 0.4 mg 03-07 22:12: 58 03-08 18:20 :13 No .4mg 0.4 mg, Sublingual , Q5MIN PRN, Starting on Sat03/07/25 at 1712, Until Sat03/08/25 at 1320, Routine, Chest pain [facility] acetaminoph en (TYLENOL) tablet 650 mg 03-07 22:10: 16 03-08 18:20 :12 No 650mg 650 mg, Oral, Q6HPRN, Starting on Sat03/07/25 at 1710, Until Sat03/08/25 at 1320, Routine, Pain (scale 1-3) [facility] morpHINE (4 mg/mL) injection 4 mg 03-07 21:45: 00 03-07 21:44 :00 No 4mg 4 mg, Slow IV Push, ONCE, 1 dose, On Sat03/07/25 at 1645, STAT [facility] nitroglycer in (NITROSTAT) sublingual tablet 0.4 mg 03-07 21:45: 00 03-07 21:38 :00 No .4mg 0.4 mg, Sublingual , ONCE, 1 dose, On Sat03/07/25 at 1645, ROSELYN [facility] aspirin tablet 325 mg 03-07 21:45: 00 03-07 21:38 :00 No 325mg 325 mg, Oral, ONCE, 1 dose, On Sat03/07/25 at 1645, STAT [facility] ketorolac (TORADOL) injection 15 mg 03-07 21:00: 00 03-07 20:12 :00 No 15mg 15 mg, Slow IV Push, ONCE, 1 dose, On Sat03/07/25 at 1600, Routine [facility] morpHINE (4 mg/mL) injection 4 mg 03-07 20:15: 00 03-07 20:13 :00 No 4mg 4 mg, Slow IV Push, ONCE, 1 dose, On Sat03/07/25 at 1515, STAT [facility] NaCl 0.9% (NS) bolus infusion 1,000 mL 03-07 20:00: 00 03-07 21:29 :00 No 1000mL at 999 mL/hr, 1,000 mL, IV Infusion, ONCE, 1 dose, On Sat03/07/25 at 1500, ROSELYN [facility] ondansetron (ZOFRAN (PF)) injection 4 mg 03-07 19:15: 00 03-07 19:42 :00 No 4mg 4 mg, Slow IV Push, ONCE, 1 dose, On Sat03/07/25 at 1415, Administer over 2-5 Minutes, 2 mL [facility] maalox/diph enhydrAMINE :lidocaine2 %viscous 1:1:1: suspension (COMPOUNDED ) 03-07 19:15: 00 03-07 19:27 :00 No 15mL 15 mL, Oral, ONCE, 1 dose, On Sat03/07/25 at 1415, Routine [facility] famotidine (PEPCID (PF)) 20 mg in NaCl 0.9% (NS) 5 mL IV push 03-07 19:15: 00 03-07 19:44 :00 No 20mg 20 mg, Intravenou s, ONCE, 1 dose, On Sat03/07/25 at 1415, Administer over 2 Minutes, 5 mL [facility] dicyclomine (BENTYL) injection 20 mg 03-05 02:00: 00 03-05 13:59 :00 Yes 20mg 20 mg, Intramuscu lar, ONCE, 1 dose, On [facility] 03/04/25 at 2100, Routine [facility] famotidine (PEPCID (PF)) 20 mg in NaCl 0.9% (NS) 5 mL IV push 03-05 00:30: 00 03-05 00:45 :00 No 20mg 20 mg, Intravenou s, ONCE, 1 dose, On [facility] 03/04/25 at 1930, Administer over 2 Minutes, 5 mL [facility] maalox/diph enhydrAMINE :lidocaine2 %viscous 1:1:1: suspension (COMPOUNDED ) 03-05 00:30: 00 03-05 00:42 :00 No 15mL 15 mL, Oral, ONCE, 1 dose, On [facility] 03/04/25 at 1930, Routine [facility] KCL (KLOR-CON M20) tablet 40 mEq 03-05 00:30: 00 03-05 00:43 :00 No 40meq 40 mEq, Oral, ONCE, 1 dose, On [place] 03/04/25 at 1930, Routine [facility] iopamidol (ISOVUE 370-500 mL) injection 83 mL 03-04 23:21: 00 03-04 23:30 :00 No [id number] 83mL 83 mL, Intravenou s, ONCE, 1 dose, On [facility] 03/04/25 at 1830, Routine [facility] NaCl 0.9% (NS) bolus infusion 1,000 mL 03-04 22:45: 00 03-05 00:46 :00 No 1000mL at 999 mL/hr, 1,000 mL, IV Infusion, ONCE, 1 dose, On [place] 03/04/25 at 1745, ROSELYN [facility] ondansetron (ZOFRAN (PF)) injection 4 mg 03-04 22:00: 00 03-04 22:09 :00 No 4mg 4 mg, Slow IV Push, ONCE, 1 dose, On [facility] 03/04/25 at 1700, Administer over 2-5 Minutes, 2 mL [facility] morpHINE (4 mg/mL) injection 4 mg 03-04 22:00: 00 03-04 22:07 :00 No 4mg 4 mg, Slow IV Push, ONCE, 1 dose, On [facility] 03/04/25 at 1700, STAT [facility] ondansetron 4 mg disintegrat ing tablet 03-04 00:00: 00 Yes [id number] 4mg Take 1 tablet by mouth every 8 hours as needed for Nausea and Vomiting (N/V). [facility] dicyclomine 20 mg tablet 03-04 00:00: 00 Yes [id number] 20mg Take 1 tablet by mouth every 6 hours as needed for Abdominal pain. [facility] omeprazole 40 mg capsule 03-04 00:00: 00 04-04 04:59 :00 Yes [id number] 40mg Take 1 capsule by mouth in the morning. [facility] Sertraline HCl 200 MG oral Capsule 01-07 15:07: 38 Yes 1{capsu le} QD Take 1 capsule by mouth daily. Kellee pinedo Quetiapine Fumarate 100 MG oral Tablet 01-07 00:00: 00 Yes [id number] 100mg QD Take 1 tablet (100 mg total) by mouth nightly. Kellee pinedo Quetiapine Fumarate 50 MG oral Tablet 12-18 00:00: 00 01-07 00:00 :00 No 50mg Take 1 tablet (50 mg total) by mouth at bedtime. Kellee pinedo Trazodone HCl 100 MG oral Tablet 12-16 00:00: 00 01-07 00:00 :00 No [id number] 100mg QD Take 1 tablet (100 mg total) by mouth nightly. Kellee pinedo Zolpidem Tartrate (Ambien) 10 MG oral Tablet 12-16 00:00: 00 01-07 00:00 :00 No [id number] 10mg QD Take 1 tablet (10 mg total) by mouth nightly as needed for sleep. Kellee pinedo ketorolac (TORADOL) injection 15 mg 12-14 22:15: 00 12-14 21:34 :00 No 15mg 15 mg, Slow IV Push, ONCE, 1 dose, On Sat12/14/24 at 1715, Routine [facility] iopamidol (ISOVUE 370-500 mL) injection 85 mL 12-14 21:30: 00 12-14 21:30 :00 No [id number] 85mL 85 mL, Intravenou s, ONCE, 1 dose, On Sat12/14/24 at 1630, Routine [facility] acetaminoph en (OFIRMEV) IV piggyback 1,000 mg 12-14 19:45: 00 12-14 19:22 :00 No 1000mg 1,000 mg, IV Piggyback, at 400 mL/hr Administer over 15 Minutes, ONCE, 1 dose, On Sat12/14/24 at 1445, Routine, Is the patient strict NPO and unable to tolerate oral medication s? No [facility] methocarbam oL (ROBAXIN) injection 1,000 mg 12-14 19:45: 00 12-14 19:11 :00 No 1000mg 1,000 mg, Slow IV Push, Administer over 3-5 Minutes, ONCE, 1 dose, On Sat12/14/24 at 1445, Routine [facility] ondansetron (ZOFRAN (PF)) injection 4 mg 12-14 19:00: 00 12-14 19:10 :00 No 4mg 4 mg, Slow IV Push, ONCE, 1 dose, On Sat12/14/24 at 1400, Administer over 2-5 Minutes, 2 mL [facility] Meloxicam (Meloxicam 15 Mg) 15 Mg TAB Meloxicam (Meloxicam 15 Mg) 15 Mg TAB 12-10 21:17: 00 Yes 1{tbl} [facility] Tizanidine Hcl (Zanaflex 4 Mg*) 4 Mg TAB Tizanidine Hcl (Zanaflex 4 Mg*) 4 Mg TAB 12-10 21:17: [address] [facility] acetaminoph en (TYLENOL) tablet 975 mg 12-09 03:15: 00 12-09 02:28 :00 No 975mg 975 mg, Oral, ONCE, 1 dose, On Sat12/08/24 at 2215, ROSELYN [facility] ondansetron (ZOFRAN (PF)) injection 4 mg 12-09 03:00: 00 12-09 01:51 :00 No 4mg 4 mg, Slow IV Push, ONCE, 1 dose, On Sat12/08/24 at 2200, 2 mL [facility] hydrOXYzine HCl 10 MG oral Tablet 12-03 00:00: 00 01-07 00:00 :00 No 10mg QD Take 1 tablet (10 mg total) by mouth daily. Kellee pinedo Zolpidem Tartrate (Ambien) 5 MG oral Tablet 12-02 00:00: 00 12-16 00:00 :00 No [id number] 5mg QD Take 1 tablet (5 mg total) by mouth nightly as needed for sleep. Kellee pinedo HYDROcodone -Acetaminop hen 10-325 MG oral Tablet 11-29 00:00: 00 01-07 00:00 :00 No Kellee pinedo rosuvastati n (CRESTOR) tablet 40 mg 11-28 02:00: 00 11-27 18:39 :12 No 40mg [facility] enoxaparin (LOVENOX) injection 40 mg 11-27 22:00: 00 11-27 18:39 :12 No 40mg 40 mg, Subcutaneo us, DAILY AT 1700, First dose on Sat11/27/24 at 1700, Until Discontinu ed, Routine [facility] KCL (KLOR-CON M20) tablet 40 mEq KCL (KLOR-CON M20) tablet 40 mEq 11-27 17:45: 00 11-27 17:08 :00 No 40meq 40 mEq, Oral, ONCE, 1 dose, On Sat11/27/24 at 1245, Routine [facility] magnesium oxide (MAG-OX 400) 400 mg (241.3 mg magnesium) tablet 400 mg magnesium oxide (MAG-OX 400) 400 mg (241.3 mg magnesium) tablet 400 mg 11-27 17:00: 00 11-27 18:39 :12 No 400mg 400 mg, Oral, DAILY, First dose on Sat11/27/24 at 1200, Until Discontinu ed, Routine [facility] lisinopriL (PRINIVIL,Z ESTRIL) tablet 40 mg lisinopriL (PRINIVIL,Z ESTRIL) tablet 40 mg 11-27 14:00: 00 11-27 18:39 :12 No 40mg 40 mg, Oral, DAILY, First dose on Sat11/27/24 at 0900, Until Discontinu ed [facility] isosorbide mononitrate (IMDUR) 24 hr tablet 60 mg isosorbide mononitrate (IMDUR) 24 hr tablet 60 mg 11-27 14:00: 00 11-27 18:39 :12 No 60mg 60 mg, Oral, DAILY, First dose on Sat11/27/24 at 0900, Until Discontinu ed, Routine [facility] clopidogreL (PLAVIX) 75 mg tablet 75 mg clopidogreL (PLAVIX) 75 mg tablet 75 mg 11-27 14:00: 00 11-27 18:39 :12 No 75mg 75 mg, Oral, DAILY, First dose on Sat11/27/24 at 0900, Until Discontinu ed, Routine, 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 ALPRAZolam 2 mg 24 hr tablet 11-27 13:39: 12 Yes 2mg Take 1 tablet by mouth in the morning and 1 tablet in the evening. [facility] methocarbam oL (ROBAXIN) tablet 500 mg methocarbam oL (ROBAXIN) tablet 500 mg 11-27 13:00: 00 11-27 18:39 :12 No 500mg 500 mg, Oral, QID, First dose on Sat11/27/24 at 0800, Until Discontinu ed, Routine [facility] metoprolol tartrate (LOPRESSOR) tablet 12.5 mg metoprolol tartrate (LOPRESSOR) tablet 12.5 mg 11-27 13:00: 00 11-27 18:39 :12 No 12.5mg 12.5 mg, Oral, BID, First dose on Sat11/27/24 at 0800, Until Discontinu ed, Routine [facility] famotidine (PEPCID AC) tablet 20 mg famotidine (PEPCID AC) tablet 20 mg 11-27 13:00: 00 11-27 18:39 :12 No 20mg 20 mg, Oral, BID, First dose on Sat11/27/24 at 0800, Until Discontinu ed, Routine [facility] hydrOXYzine (ATARAX) tablet 50 mg 11-27 04:35: 56 11-27 18:39 :12 No 50mg [facility] ALPRAZolam (XANAX) tablet 1 mg 11-27 04:35: 16 11-27 18:39 :12 No 1mg [facility] NaCl 0.9% (NS) IV infusion 1,000 mL 11-27 03:00: 00 11-27 18:39 :12 No 1000mL at 50 mL/hr, IV Infusion, CONTINUOUS , Starting on Sat11/26/24 at 2200, Until Sat11/27/24 at 1339, Routine [facility] ondansetron (ZOFRAN (PF)) injection 4 mg 11-27 02:49: 22 11-27 18:39 :12 No 4mg 4 mg, Slow IV Push, Q6HPRN, Starting on Sat11/26/24 at 2149, Until Sat11/27/24 at 1339, Administer over 2-5 Minutes, [address] [facility] morpHINE (4 mg/mL) injection 4 mg morpHINE (4 mg/mL) injection 4 mg 11-27 02:49: 19 11-27 17:19 :29 No 4mg 4 mg, Slow IV Push, Q6HPRN, Starting on Sat11/26/24 at 2149, Until Sat11/27/24 at 1219, Routine, Pain (scale 7-10) [facility] HYDROcodone -acetaminop hen (NORCO 5) tablet 1 tablet HYDROcodone -acetaminop hen (NORCO 5) tablet 1 tablet 11-27 02:49: 09 11-27 17:19 :29 No 1{tbl} 1 tablet, Oral, Q6HPRN, Starting on Sat11/26/24 at 2149, Until Sat11/27/24 at 1219, Routine, Pain (scale 4-6) [facility] acetaminoph en (TYLENOL) tablet 650 mg 11-27 02:49: 07 11-27 18:39 :12 No 650mg 650 mg, Oral, Q6HPRN, Starting on Sat11/26/24 at 2149, Until Sat11/27/24 at 1339, Routine, Pain (scale 1-3) [facility] HYDROcodone -acetaminop hen (NORCO) 10-325 mg tablet 1 tablet 11-27 02:30: 00 11-27 02:47 :00 No 1{tbl} 1 tablet, Oral, ONCE NOW, 1 dose, On Sat11/26/24 at 2130, Routine [facility] nitroglycer in (NITROL) 2 % ointment 1 Inch nitroglycer in (NITROL) 2 % ointment 1 Inch 11-27 02:15: 00 11-27 04:13 :00 No 1[in_us ] 1 Inch, Transderma l (Apply To Skin), ONCE NOW, 1 dose, On [place] 11/26/24 at 2115, Routine [facility] haloperidoL (HALDOL) tablet 2 mg 11-27 01:30: 00 11-27 18:39 :12 No 2mg 2 mg, Oral, QHS, First dose on [place] 11/26/24 at 2030, Until Discontinu ed, Routine [facility] ondansetron (ZOFRAN (PF)) injection 4 mg 11-27 01:00: 00 11-27 00:06 :00 No 4mg 4 mg, Slow IV Push, ONCE, 1 dose, On [place] 11/26/24 at 2000, [address] [facility] morpHINE (4 mg/mL) injection 4 mg 11-27 01:00: 00 11-27 00:07 :00 No 4mg 4 mg, Slow IV Push, ONCE, 1 dose, On [facility] 11/26/24 at 2000, STAT [facility] NaCl 0.9% (NS) bolus infusion 500 mL 11-27 00:15: 00 11-27 01:22 :00 No 500mL at 999 mL/hr, 500 mL, IV Infusion, ONCE, 1 dose, On [facility] 11/26/24 at 1915, STAT [facility] Methocarbam ol 750 MG oral Tablet 11-21 00:00: 00 Yes [id number] 750mg QD Take 1 tablet (750 mg total) by mouth daily. Kellee pinedo Aspirin (Aspirin Low Dose) 81 MG oral Tablet Delayed Response 11-16 00:00: 00 Yes [id number] 81mg QD TAKE 1 TABLET BY MOUTH EVERY DAY Kellee pinedo ibuprofen (IBU) tablet 600 mg 11-15 02:30: 00 11-15 02:21 :00 No 600mg 600 mg, Oral, ONCE, 1 dose, On [facility] 11/14/24 at 2130, ROSELYN [facility] Ciprofloxac in HCl (Cipro) 500 MG oral Tablet 11-15 00:00: 00 11-23 04:59 :00 No [id number] 500mg Q.5D Take 1 tablet (500 mg total) by mouth 2 times daily for 7 days. Kellee Yeager l KCL (KLOR-CON M20) tablet 40 mEq 11-11 06:15: 00 11-11 05:28 :00 No 40meq 40 mEq, Oral, ONCE, 1 dose, On Sat11/11/24 at 0115, Routine [facility] iopamidol (ISOVUE 370-500 mL) injection 80 mL 11-11 05:00: 00 11-11 05:00 :00 No [id number] 80mL 80 mL, Intravenou s, ONCE, 1 dose, On Sat11/11/24 at 0000, Routine [facility] morpHINE (4 mg/mL) injection 4 mg 11-11 04:30: 00 11-11 04:29 :00 No 4mg 4 mg, Slow IV Push, ONCE, 1 dose, On Sat11/10/24 at 2330, STAT [facility] ondansetron (ZOFRAN (PF)) injection 4 mg 11-11 02:00: 00 11-11 02:32 :00 No 4mg 4 mg, Slow IV Push, ONCE, 1 dose, On Sat11/10/24 at 2100, Administer over 2-5 Minutes, 2 mL [facility] morpHINE (4 mg/mL) injection 4 mg 11-11 02:00: 00 11-11 02:29 :00 No 4mg 4 mg, Slow IV Push, ONCE, 1 dose, On Sat11/10/24 at 2100, STAT [facility] Haloperidol 2 MG oral Tablet 11-06 00:00: 00 Yes 2mg Take 1 tablet (2 mg total) by mouth at bedtime. Kellee pinedo Haloperidol 2 MG oral Tablet 11-06 00:00: 01-07 00:00 :00 No 1{tbl} Take 1 tablet (2 mg total) by mouth at bedtime. Kellee pinedo hydrOXYzine HCl 10 MG oral Tablet 11-06 00:00: 00 12-02 00:00 :00 No 10mg QD Take 1 tablet (10 mg total) by mouth daily. Kellee pinedo lisinopriL 40 mg tablet 11-05 00:00: 00 Yes [id number] 40mg Take 1 tablet by mouth in the morning. [facility] Benztropine Mesylate 0.5 MG oral Tablet 11-05 00:00: 00 Yes .5mg Take 1 tablet (0.5 mg total) by mouth at bedtime. Kellee pinedo Benztropine Mesylate 0.5 MG oral Tablet 11-05 00:00: 01-07 00:00 :00 No 1{tbl} Take 1 tablet (0.5 mg total) by mouth at bedtime. Kellee pinedo Lidocaine (LIDOCARE) 4 % patch 1 Patch Lidocaine (LIDOCARE) 4 % patch 1 Patch 11-04 17:45: 00 11-04 20:24 :12 No 1{patch } 1 Patch, Topical, Administer over 12 Hours, ONCE, 1 dose, On Sat11/04/24 at 1245, Routine [facility] magnesium sulfate in water 4 gram/50 mL (8 %) IV Piggyback 4 g magnesium sulfate in water 4 gram/50 mL (8 %) IV Piggyback 4 g 11-04 16:00: 00 11-04 19:04 :00 No 4g 4 g, IV Piggyback, at 25 mL/hr Administer over 120 Minutes, ONCE, 1 dose, On Sat11/04/24 at 1100, Routine [facility] clopidogreL 75 mg tablet 11-04 15:24: 11 Yes 75mg Take 1 tablet by mouth in the morning. [facility] aspirin 81 mg EC tablet 11-04 15:24: 11 Yes 81mg Take 1 tablet by mouth in the morning. [facility] hydrOXYzine 50 mg tablet 11-04 15:24: 11 Yes 50mg Take 1 tablet by mouth every 12 hours as needed for Anxiety. [facility] isosorbide mononitrate 60 mg 24 hr tablet 11-04 15:24: 11 03-08 00:00 :00 No 60mg Take 1 tablet by mouth in the morning. [facility] haloperidoL 2 mg tablet 11-04 15:24: 11 03-08 00:00 :00 No 2mg Take 1 tablet by mouth at bedtime. [facility] rosuvastati n 20 mg tablet 11-04 15:24: 10 11-04 00:00 :00 No 20mg Take 1 tablet by mouth at bedtime. [facility] rosuvastati n 40 mg tablet 11-04 00:00: 00 Yes [id number] 40mg Take 1 tablet by mouth at bedtime. [facility] metoprolol tartrate 25 mg tablet 11-04 00:00: 00 Yes [id number] 12.5mg Take 0.5 tablets by mouth in the morning and 0.5 tablets in the evening. [facility] aminophylli ne 50 mg in NaCl 0.9% (NS) 2 mL piggyback 11-03 19:44: 46 11-03 20:03 :14 No ONCE INTRA PROCEDURE, Starting on Sat11/03/24 at 1444, Until Sat11/03/24 at 1503, CV Intraproce dure [facility] adenosine diagnostic (ADENOSCAN) injection 11-03 19:10: 54 11-03 20:03 :14 No CONTINUOUS PRN, Starting on Sat11/03/24 at 1410, Until Sat11/03/24 at 1503, Routine, CV Intraproce dure [facility] heparin 1,000 unit/mL injection 11-03 18:45: 11 11-03 20:03 :14 No ONCE INTRA PROCEDURE, Starting on Sat11/03/24 at 1345, Until Sat11/03/24 at 1503, Routine, CV Intraproce dure [facility] nitroglycer in (TRIDIL) 2 mg in 10 mL D5W for Cardiac Cath 11-03 18:29: 27 11-03 20:03 :14 No ONCE INTRA PROCEDURE, Starting on Sat11/03/24 at 1329, Until Sat11/03/24 at 1503, Routine, CV Intraproce dure [facility] lidocaine 1% (PF) (XYLOCAINE) injection 11-03 18:13: 12 11-03 20:03 :14 No ONCE INTRA PROCEDURE, Starting on Sat11/03/24 at 1313, Until Sat11/03/24 at 1503, Routine, CV Intraproce dure [facility] midazolam (VERSED) 1 mg/mL injection 11-03 18:12: 08 11-03 20:03 :14 No ONCE INTRA PROCEDURE, Starting on Sat11/03/24 at 1312, Until Sat11/03/24 at 1503, Routine, CV Intraproce dure [facility] FENTanyl (PF) (SUBLIMAZE) injection 11-03 18:11: 52 11-03 20:03 :14 No ONCE INTRA PROCEDURE, Starting on Sat11/03/24 at 1311, Until Sat11/03/24 at 1503, Routine, CV Intraproce dure [facility] metoprolol tartrate (LOPRESSOR) tablet 12.5 mg metoprolol tartrate (LOPRESSOR) tablet 12.5 mg 11-03 13:00: 00 11-04 22:34 :20 No 12.5mg 12.5 mg, Oral, BID, First dose on Sat11/03/24 at 0800, Until Discontinu ed, Routine [facility] famotidine (PEPCID AC) tablet 20 mg famotidine (PEPCID AC) tablet 20 mg 11-02 14:00: 00 11-04 20:24 :12 No 20mg 20 mg, Oral, DAILY, First dose (after last modificati on) on Sat11/02/24 at 0900, Until Discontinu ed, Routine [facility] rosuvastati n (CRESTOR) tablet 40 mg rosuvastati n (CRESTOR) tablet 40 mg 11-02 02:00: 00 11-04 22:34 :20 No 40mg 40 mg, Oral, QHS, First dose (after last modificati on) on Sat11/01/24 at 2100, Until Discontinu ed, Routine [facility] haloperidoL (HALDOL) tablet 2 mg haloperidoL (HALDOL) tablet 2 mg 11-02 02:00: 00 11-04 20:24 :11 No 2mg 2 mg, Oral, QHS, First dose on Sat11/01/24 at 2100, Until Discontinu ed, Routine [facility] morpHINE injection 2 mg morpHINE injection 2 mg 11-02 00:15: 06 11-04 16:59 :14 No 2mg 2 mg, Slow IV Push, Q4HPRN, Starting on Sat11/01/24 at 1915, Until Sat11/04/24 at 1159, Routine, Chest pain, Pain (scale 7-10) [facility] HYDROcodone -acetaminop hen (NORCO 5) tablet 1 tablet HYDROcodone -acetaminop hen (NORCO 5) tablet 1 tablet 11-02 00:14: 58 11-04 16:59 :14 No 1{tbl} 1 tablet, Oral, Q6HPRN, Starting on Sat11/01/24 at 1914, Until Sat11/04/24 at 1159, Routine, Pain (scale 4-6) [facility] morpHINE injection 4 mg morpHINE injection 4 mg 11-01 23:25: 45 11-01 23:34 :04 No 4mg 4 mg, Slow IV Push, Q4HPRN, Starting on Sat11/01/24 at 1825, Until Sat11/01/24 at 1834, Routine, Chest pain [facility] acetaminoph en (TYLENOL) tablet 650 mg 11-01 23:14: 29 11-04 20:24 :[address] [facility] morpHINE (4 mg/mL) injection 4 mg morpHINE (4 mg/mL) injection 4 mg 11-01 17:39: 53 11-01 23:25 :45 No 4mg 4 mg, Slow IV Push, Q4HPRN, Starting on Sat11/01/24 at 1239, Until Sat11/01/24 at 1825, Routine, Chest pain [facility] nitroglycer in (NITROSTAT) sublingual tablet 0.4 mg nitroglycer in (NITROSTAT) sublingual tablet 0.4 mg 11-01 17:35: 41 11-04 20:24 :12 No .4mg 0.4 mg, Sublingual , Q5MIN PRN, Starting on Sat11/01/24 at 1235, Until Sat11/04/24 at 1524, Routine, Chest pain [facility] heparin 25,000 Units/250 mL (Premixed [...] ant therapy. Range, Dosing and Testing: FOR [place], [facility], AND [facility] ONLY - aPTT < 35: [...] once therapeuti c levels are reached. FOR [facility] ONLY - aPTT < 40: [...] ADJUST INITIAL BOLUS OR INITIAL INFUSION RATE. [facility] HEPARIN SODIUM (PORCINE) 1,000 UNIT/ML BOLUS ACS ORDER SET [id number] 4-27 17:30: 00 11-01 19:27 :00 No 4000U 4,000 Units, IV Push, ONCE, 1 dose, On 11/01/24 at 1230, ROSELYN [facility] heparin (1,000 unit/mL, 10 mL vial) for Rebolusing [id number] 0817-0 4-27 17:27: 37 11-04 20:24 :12 No 3000U FOR REBOLUSING , Starting on Sat11/01/24 at 1227, Until Sat11/04/24 at 1524, Routine, Dosing based on aPTT testing parameters (refer to continuous heparin drip order). [facility] lisinopriL (PRINIVIL,Z ESTRIL) tablet 40 mg lisinopriL (PRINIVIL,Z ESTRIL) tablet 40 mg 11-01 14:00: 00 11-04 22:34 :20 No 40mg 40 mg, Oral, DAILY, First dose on Sat11/01/24 at 0900, Until Discontinu ed, Routine [facility] isosorbide mononitrate (IMDUR) 24 hr tablet 60 mg isosorbide mononitrate (IMDUR) 24 hr tablet 60 mg 11-01 14:00: 00 11-04 20:24 :11 No 60mg 60 mg, Oral, DAILY, First dose on Sat11/01/24 at 0900, Until Discontinu ed, Routine [facility] aspirin EC tablet 81 mg aspirin EC tablet 81 mg 11-01 14:00: 00 11-04 20:24 :11 No 81mg 81 mg, Oral, DAILY, First dose on Sat11/01/24 at 0900, Until Discontinu ed, Routine [facility] clopidogreL (PLAVIX) 75 mg tablet 75 mg clopidogreL (PLAVIX) 75 mg tablet 75 mg 11-01 14:00: 00 11-04 20:24 :11 No 75mg 75 mg, Oral, DAILY, First dose on Sat11/01/24 at 0900, Until Discontinu ed, Routine [facility] enoxaparin (LOVENOX) injection 40 mg enoxaparin (LOVENOX) injection 40 mg 11-01 14:00: 00 11-01 17:27 :16 No 40mg 40 mg, Subcutaneo us, DAILY, First dose on Sat11/01/24 at 0900, Until Discontinu ed, Routine [facility] perflutren protein-A microsphr (OPTISON) injection 3 mL 11-01 13:45: 00 11-01 13:45 :00 No [id number] 3mL 3 mL, IV Push, ONCE, 1 dose, On Sat11/01/24 at 0845, Routine [facility] famotidine (PEPCID AC) tablet 20 mg famotidine (PEPCID AC) tablet 20 mg 11-01 13:00: 00 11-02 00:40 :46 No 20mg 20 mg, Oral, BID, First dose on Sat11/01/24 at 0800, Until Discontinu ed, Routine [facility] morphine (2 mg/mL) injection 2 mg morphine (2 mg/mL) injection 2 mg 11-01 10:00: 00 11-01 09:28 :00 No 2mg 2 mg, Slow IV Push, ONCE, 1 dose, On Sat11/01/24 at 0500, Routine [facility] NaCl 0.9% (NS) IV infusion 1,000 mL 11-01 09:30: 00 11-02 16:23 :00 No 1000mL at 75 mL/hr, IV Infusion, ONCE, 1 dose, On Sat11/01/24 at 0430, Routine [facility] ALPRAZolam (XANAX) tablet 1 mg [id number] 4-27 06:46: 25 11-01 23:35 :16 No 1mg 1 mg, Oral, BIDPRN, Starting on Sat11/01/24 at 0146, Until Sat11/01/24 at 1835, Routine, Anxiety [facility] methocarbam oL (ROBAXIN) tablet 500 mg methocarbam oL (ROBAXIN) tablet 500 mg 11-01 06:45: 47 11-04 20:24 :11 No 500mg 500 mg, Oral, Q6HPRN, Starting on Sat11/01/24 at 0145, Until Sat11/04/24 at 1524, Routine, Muscle Spasms [facility] ketorolac (TORADOL) injection 15 mg ketorolac (TORADOL) injection 15 mg 11-01 04:50: 40 11-01 23:34 :04 No 15mg 15 mg, Slow IV Push, Q6HPRN, Starting on 10/31/24 at 2350, Until 11/01/24 at 1834, Routine, Pain (scale 7-10) [facility] ondansetron (ZOFRAN (PF)) injection 4 mg ondansetron (ZOFRAN (PF)) injection 4 mg 11-01 04:50: 11 11-04 20:24 :11 No 4mg 4 mg, Slow IV Push, Q6HPRN, Starting on 10/31/24 at 2350, Until 11/04/24 at 1524, Administer over 2-5 Minutes, 2 mL [facility] morpHINE (4 mg/mL) injection 4 mg 11-01 04:15: 00 11-01 04:06 :00 No 4mg 4 mg, Slow IV Push, ONCE, 1 dose, On 10/31/24 at 2315, STAT [facility] maalox/diph enhydrAMINE :lidocaine2 %viscous 1:1:1: suspension (COMPOUNDED ) 11-01 04:15: 00 11-01 04:06 :00 No 15mL 15 mL, Oral, ONCE, 1 dose, On 10/31/24 at 2315, [facility] morpHINE (4 mg/mL) injection 4 mg 11-01 03:15: 00 11-01 03:10 :00 No 4mg 4 mg, Slow IV Push, ONCE, 1 dose, On 10/31/24 at 2215, STAT [facility] ondansetron (ZOFRAN (PF)) injection 4 mg 11-01 03:15: 00 11-01 03:12 :00 No 4mg 4 mg, Slow IV Push, ONCE, 1 dose, On 10/31/24 at 2215, Administer over 2-5 Minutes, 2 mL [facility] nitroglycer in (NITROSTAT) sublingual tablet 0.4 mg 11-01 03:15: 00 11-01 02:58 :00 No .4mg 0.4 mg, Sublingual , ONCE, 1 dose, On 10/31/24 at 2215, ROSELYN [facility] iopamidol (ISOVUE 370-500 mL) injection 100 mL 10-24 04:30: 00 10-24 04:30 :00 No [id number] 100mL 100 mL, Intravenou s, ONCE, 1 dose, On Sat10/23/24 at 2330, Routine [facility] cefTRIAXone (ROCEPHIN) 1,000 mg in water for injection, sterile 10 mL IV Push 10-24 03:00: 00 10-24 02:54 :00 No 1000mg 1,000 mg, Intravenou s, ONCE, 1 dose, On Sat10/23/24 at 2200, 10 mL, Reason for Anti-Infec tive: Empiric Therapy for Suspected Infection, Empiric Therapy Site: Urine, Duration of therapy: Once (ED) [facility] NaCl 0.9% (NS) bolus infusion 1,000 mL 10-24 01:30: 00 10-24 04:03 :00 No 1000mL at 999 mL/hr, 1,000 mL, IV Infusion, ONCE, 1 dose, On Sat10/23/24 at 2030, STAT [facility] ondansetron (ZOFRAN (PF)) injection 4 mg 10-24 01:30: 00 10-24 02:26 :00 No 4mg 4 mg, Slow IV Push, ONCE, 1 dose, On Sat10/23/24 at 2030, Administer over 2-5 Minutes, 2 mL [facility] morpHINE (4 mg/mL) injection 6 mg 10-24 01:30: 00 10-24 02:22 :00 No 6mg 6 mg, Slow IV Push, ONCE, 1 dose, On Sat10/23/24 at 2030, STAT [facility] Cefdinir 300 MG oral Capsule 10-24 [...] 10-23 10:46: 10 10-23 00:00 :00 No [id number] 50mg Q.5D Take 1 capsule (50 mg total) by mouth as needed in the morning and 1 capsule (50 mg total) as needed in the evening for anxiety. Kellee pinedo Sertraline HCl 200 MG oral Capsule 10-23 10:16: 17 Yes 1{capsu le} QD Take 1 capsule by mouth daily. Kellee pinedo hydrOXYzine Pamoate 50 MG oral Capsule 10-23 00:00: 00 Yes [id number] 50mg Q.5D Take 1 capsule (50 mg total) by mouth as needed in the morning and 1 capsule (50 mg total) as needed in the evening for anxiety. Kellee pinedo Ascorbic Acid (Vitamin C) 250 MG oral Tablet 10-23 00:00: 00 Yes [id number] 250mg QD Take 1 tablet (250 mg total) by mouth daily. Kellee pinedo famotidine (PEPCID) 20 mg tablet 10-23 00:00: 00 03-08 00:00 :00 No [id number] 20mg Take 1 tablet by mouth in the morning and 1 tablet in the evening. [facility] Eszopiclone 2 MG oral Tablet 10-23 00:00: 00 12-02 00:00 :00 No [id number] 2mg QD Take 1 tablet (2 mg total) by mouth nightly Take immediatel y before bedtime. Kellee pinedo cefdinir 300 mg capsule 10-23 00:00: 00 11-04 00:00 :00 No [id number] 300mg Take 1 capsule by mouth in the morning and 1 capsule in the evening. Do all this for 8 days. [facility] ondansetron 4 mg disintegrat ing tablet 10-23 00:00: 00 11-01 00:00 :00 No [id number] 4mg Take 1 tablet by mouth every 12 (twelve) hours as needed for Nausea and Vomiting (N/V). [facility] HYDROcodone -acetaminop hen 5-325 mg tablet 10-23 00:00: 10-31 04:59 :00 No [id number] 1{tbl} Take 1 tablet by mouth every 6 (six) hours as needed for Pain (scale 7-10) for up to 7 days. Indication s: acute pain [facility] Methocarbam ol 750 MG oral Tablet 10-20 00:00: 00 Yes [id number] 750mg QD Take 1 tablet (750 mg total) by mouth daily. Kellee pinedo Belsomra 20 MG oral Tablet 10-20 00:00: 00 10-23 00:00 :00 No [id number] 1{tbl} QD TAKE 1 TABLET BY MOUTH EVERY DAY AT NIGHT Kellee pinedo Ketorolac Tromethamin e 10 MG oral Tablet 10-15 00:00: 00 01-07 00:00 :00 No Kellee pinedo Rosuvastati n Calcium (Crestor 20 Mg *) 20 Mg TAB Rosuvastati n Calcium (Crestor 20 Mg *) 20 Mg TAB 10-14 18:49: 00 Yes 20mg [facility] Clopidogrel Bisulfate (Plavix 75 Mg *) 75 Mg TAB Clopidogrel Bisulfate (Plavix 75 Mg *) 75 Mg TAB 10-14 02:00: 00 Yes [facility] Haloperidol Haloperidol 10-14 02:00: 00 [facility] Isosorbide Mononitrate (Imdur *) 60 Mg Tablet ER 24HR Isosorbide Mononitrate (Imdur *) 60 Mg Tablet ER 24HR 10-14 02:00: [address] [facility] Methocarbam ol Methocarbam ol 10-14 02:00: [address] [facility] Metoprolol Succinate (Toprol Xl *) 25 Mg Tablet ER 24HR Metoprolol Succinate (Toprol Xl *) 25 Mg Tablet ER 24HR 10-14 02:00: [address] [facility] morphine (2 mg/mL) injection 2 mg 10-13 07:30: 00 10-13 07:35 :00 No 2mg 2 mg, Slow IV Push, ONCE, 1 dose, On Sat10/13/24 at 0230, Routine [facility] ondansetron (ZOFRAN (PF)) injection 4 mg 10-13 05:15: 00 10-13 05:20 :00 No 4mg 4 mg, Slow IV Push, ONCE, 1 dose, On Sat10/13/24 at 0015, Administer over 2-5 Minutes, [address] [facility] morphine (2 mg/mL) injection 2 mg 10-13 05:15: 00 10-13 05:18 :00 No 2mg 2 mg, Slow IV Push, ONCE, 1 dose, On Sat10/13/24 at 0015, Routine [facility] aspirin chewable tablet 243 mg 10-13 04:00: 00 10-13 04:13 :00 No 243mg 243 mg, Oral, Once, 1 dose, On Sat10/12/24 at 2300, Routine [facility] nitroglycer in (NITROSTAT) sublingual tablet 0.4 mg 10-13 03:55: 07 Yes .4mg 0.4 mg, Sublingual , Q5MIN PRN, 3 doses, Starting on Sat10/12/24 at 2255, Until Discontinu ed, ROSELYN, Chest pain [facility] Haloperidol 1 MG oral Tablet 10-09 [...] pinedo Methocarbam ol 750 MG oral Tablet 3-03 00:00: 00 Yes [id number] 750mg Q.25D TAKE 1 TABLET (750 MG TOTAL) BY MOUTH 4 TIMES DAILY. Kellee pinedo Belsomra 20 MG oral Tablet 09-07 00:00: 00 Yes [id number] 1{tbl} QD TAKE 1 TABLET BY MOUTH EVERY DAY AT NIGHT Kellee pinedo Aspirin Low Dose 81 MG oral Tablet Delayed Response 09-01 00:00: 00 Yes [id number] 81mg QD TAKE 1 TABLET BY MOUTH [...] 500-50 MCG/ACT inhalation AEROSOL POWDER, BREATH ACTIVATED 2- 00:00: 00 10-23 00:00 :00 No INHALE 1 PUFF TWICE A DAY FOR 60 DAYS Kellee pinedo methylPREDN ISolone 4 MG oral Tablet Therapy Pack 08-05 00:00: 00 Yes [id number] 1{heena} Take 1 heena by mouth See Admin Instructio ns Use as directed. Kellee pinedo Guaifenesin (Mucinex) 600 MG oral Tablet 12 Hour Sustained Release 08-05 00:00: 00 Yes [id number] 1200mg Q.5D Take 2 tablets (1,200 mg total) by mouth 2 times daily. Kellee pinedo Albuterol HFA 108 (90 Base) MCG/ACT IN AERS 08-05 00:00: 00 10-23 00:00 :00 No [id number] 2{puff} Q.25D Inhale 2 puffs into the lungs every 6 hours as needed for wheezing or shortness of breath. Kellee pinedo Belsomra 20 MG oral Tablet 08-04 00:00: 00 Yes [id number] 1{tbl} QD TAKE 1 TABLET BY MOUTH EVERY DAY AT NIGHT Kellee pinedo Aspirin Low Dose 81 MG oral Tablet Delayed Response 08-04 00:00: 00 Yes [id number] 81mg QD TAKE 1 TABLET BY MOUTH [...] dose, On 07/19/24 at 0200, [facility] ipratropium -albuteroL (DUONEB) 0.5 mg-3 mg(2.5 mg base)/3 mL nebulizer solution 3 mL 07-19 08:00: 00 07-19 07:04 :00 No 3mL 3 mL, Inhalation , ONCE, 1 dose, On 07/19/24 at 0200, Routine [facility] azithromyci n (ZITHROMAX) tablet 500 mg 07-19 07:00: 00 07-19 07:05 :00 No 500mg 500 mg, Oral, ONCE, 1 dose, On 07/19/24 at 0100, [place]N, Reason for Anti-Infec tive: Documented Infection, Documented Infection Site: Respirator y, Duration of Therapy: Once (ED) [facility] iopamidol (ISOVUE 370-500 mL) injection 75 mL 07-19 06:45: 00 07-19 06:45 :00 No [id number] 75mL 75 mL, Intravenou s, ONCE, 1 dose, On 07/19/24 at 0045, Routine [facility] nitroglycer in (NITROL) 2 % ointment 0.5 Inch 07-19 06:00: 00 07-19 05:11 :00 No .5[in_u s] 0.5 Inch, Transderma l (Apply To Skin), ONCE, 1 dose, On 07/19/24 at 0000, RO[facility]N [facility] ketorolac (TORADOL) injection 15 mg 07-19 06:00: 00 07-19 05:09 :00 No 15mg 15 mg, Slow IV Push, ONCE, 1 dose, On 07/19/24 at 0000, RO[facility] [facility] azithromyci n (ZITHROMAX Z-HEENA) 250 mg tablet 07-19 00:00: 00 11-01 00:00 :00 No [id number] 250mg Take 1 tablet by mouth SEE-INSTRU CTIONS. Take 500 mg day 1, then 250 mg days 2 to 5. [facility] predniSONE 20 mg tablet 07-19 00:00: 00 11-01 00:00 :00 No [id number] 1 PO BID x 4 days [facility] Sertraline HCl 50 MG oral Tablet 07-10 00:00: 00 10-23 00:00 :00 No [id number] TAKE 1 TABLET BY MOUTH DAILY TAKE IN ADDITION TO 100 MG TABLET FOR A TOTAL DOSE OF 150 MG DAILY. Kellee pinedo Sertraline HCl 100 MG oral Tablet 07-10 00:00: 00 10-23 00:00 :00 No [id number] TAKE 1 TABLET BY MOUTH EVERY MORNING TAKE IN ADDITION TO 50 MG TABLET FOR A TOTAL DOSE OF 150 MG DAILY. Kellee pinedo iopamidol (ISOVUE 370-500 mL) injection 100 mL 2023-07 06:45: 00 07-04 06:45 :00 No [id number] 100mL 100 mL, Intravenou s, ONCE, 1 dose, On Sat07/04/24 at 0045, Routine [facility] morpHINE (4 mg/mL) injection 4 mg 2023-07 06:30: 00 07-04 06:29 :00 No 4mg 4 mg, Slow IV Push, ONCE, 1 dose, [facility]04[facility] 0030[facility] (PHENERGAN) 12.5 mg in NS 50 mL IV piggyback (CNR) 2023-07 05:15: 00 07-04 05:30 :00 No 12.5mg 12.5 mg, IV Piggyback, at 200 mL/hr Administer over 15 Minutes, ONCE, 1 dose, On Sat07/03/24 at 2315, RO[facility]N [facility] morpHINE (4 mg/mL) injection 4 mg 2023-07 03:30: 00 07-04 03:49 :00 No 4mg 4 mg, Slow IV Push, ONCE, 1 dose, On Sat07/03/24 at 2130, STAT [facility] ondansetron (ZOFRAN (PF)) injection 4 mg 2023-07 03:30: 07-04 03:50 :00 No 4mg 4 mg, Slow IV Push, ONCE, 1 dose, On Sat07/03/24 at 2130, Administer over 2-5 Minutes, 2 mL [facility] NaCl 0.9% (NS) IV infusion 1,000 mL 2023-07 03:18: 00 07-04 04:56 :00 No 1000mL at 999 mL/hr, Intravenou s, ONCE, 1 dose, On Sat07/03/24 at 2130, RO[facility] [facility] sodium chloride (NS) injection 5 mL 2023-07 02:16: 03 Yes 5mL 5 mL, Intravenou s, PRN, Starting on Sat07/03/24 at 2016, Until Discontinu ed, Routine, IV line flushing [facility] benzonatate 100 mg capsule 2023-07 00:00: 00 Yes [id number] 100mg Take 1 capsule by mouth 3 (three) times daily as needed for Cough. [facility] proMETHazin e 25 mg tablet 2023-07 00:00: 00 11-01 00:00 :00 No [id number] 25mg Take 1 tablet by mouth every 6 (six) hours as needed for Nausea and Vomiting (N/V). [facility] dicyclomine 10 mg capsule 2023-07 00:00: 00 11-01 00:00 :00 No [id number] 10mg Take 1 capsule by mouth 3 (three) times daily as needed for Abdominal pain. [facility] Gabapentin 300 MG oral Capsule 2023-07 00:00: 00 Yes 1 cap po 30-60 min prior to MRI. Kellee pinedo cephALEXin (KEFLEX) capsule 500 mg 2023-07 08:45: 00 06-21 08:53 :00 No 500mg 500 mg, Oral, ONCE, 1 dose, On Sat06/21/24 at 0245, ROSE[place]N, Reason for Anti-Infec tive: Documented Infection, Documented Infection Site: Skin / Soft Tissue, Duration of Therapy: Once (ED) [facility] doxycycline hyclate (Vibramycin ) capsule 100 mg 2023-07 08:45: 00 06-21 08:53 :00 No 100mg 100 mg, Oral, ONCE, 1 dose, On Sat06/21/24 at 0245, [place], Reason for Anti-Infec tive: Documented Infection, Documented Infection Site: Skin / Soft Tissue, Duration of Therapy: Once (ED) [facility] doxycycline hyclate 100 mg capsule 2023-07 00:00: 00 06-29 05:59 :00 No [id number] 100mg Take 1 capsule by mouth in the morning and 1 capsule in the evening. Do all this for 7 days. [facility] cephALEXin 500 mg capsule 2023-07 00:00: 00 06-29 05:59 :00 No [id number] 500mg Take 1 capsule by mouth 4 (four) times daily for 7 days. [facility] iopamidol (ISOVUE 370-500 mL) injection 100 mL 2023-07 06:30: 00 06-15 06:30 :00 No [id number] 100mL 100 mL, Intravenou s, ONCE, 1 dose, On Sat06/15/24 at 0030, Routine [facility] morpHINE (4 mg/mL) injection 4 mg 2023-07 06:00: 00 06-15 05:57 :00 No 4mg 4 mg, Slow IV Push, ONCE, 1 dose, On Sat06/15/24 at 0000, STAT [facility] proMETHazin e (PHENERGAN) 12.5 mg in NS 50 mL IV piggyback (CNR) 2023-07 05:15: 00 06-15 05:56 :00 No 12.5mg 12.5 mg, IV Piggyback, at 200 mL/hr Administer over 15 Minutes, ONCE, 1 dose, On 06/14/24 at 2315, RO[facility] NaCl 0.9% (NS) IV infusion 1,000 mL 2023-07 04:30: 00 06-15 05:28 :00 No 1000mL at 999 mL/hr, Intravenou s, ONCE, 1 dose, On 06/14/24 at 2230, Routine [facility] fentanyl PF (SUBLIMAZE (PF)) injection 50 mcg 2023-07 04:00: 00 06-15 04:23 :00 No 50ug 50 mcg, Slow IV Push, ONCE, 1 dose, On 06/14/24 at 2200, Routine [facility] famotidine (PEPCID (PF)) injection 20 mg 2023-07 03:30: 00 06-15 04:18 :00 No 20mg 20 mg, Slow IV Push, ONCE, 1 dose, On 06/14/24 at 2130, RO[facility] [facility] ondansetron (ZOFRAN (PF)) injection 4 mg 2023-07 03:30: 00 06-15 04:20 :00 No 4mg 4 mg, Slow IV Push, ONCE, 1 dose, On 06/14/24 at 2130, Administer over 2-5 Minutes, 2 mL [facility] proMETHazin e 25 mg tablet 2023-07 00:00: 00 11-01 00:00 :00 No [id number] 25mg Take 1 tablet by mouth every 6 (six) hours as needed for Nausea and Vomiting (N/V). [facility] morpHINE (4 mg/mL) injection 4 mg 2023-07 08:15: 00 06-07 08:11 :00 No 4mg 4 mg, Slow IV Push, ONCE, 1 dose, On 06/07/24 at 0215, STAT [facility] ondansetron (ZOFRAN (PF)) injection 4 mg 2023-07 05:15: 00 06-07 05:23 :00 No 4mg 4 mg, Slow IV Push, ONCE, 1 dose, On 06/06/24 at 2315, Administer over 2-5 Minutes, 2 mL [facility] morpHINE (4 mg/mL) injection 4 mg 2023-07 05:15: 00 06-07 05:21 :00 No 4mg 4 mg, Slow IV Push, ONCE, 1 dose, On Sat06/06/24 at 2315, STAT [facility] nitroglycer in (NITROSTAT) sublingual tablet 0.4 mg 2023-07 05:08: 35 Yes .4mg 0.4 mg, Sublingual , Q5MIN PRN, 3 doses, Starting on Sat06/06/24 at 2308, Until Discontinu ed, ROSELYN, Chest pain [facility] hydrOXYzine Pamoate 50 MG oral Capsule 2023-07 13:02: 35 Yes [id number] 50mg Q.5D Take 1 capsule (50 mg total) by mouth 2 times daily as needed for anxiety. Kellee pinedo Vitamin D, Ergocalcife rol, 1.25 MG (40540 UT) oral Capsule 2023-07 00:00: 00 Yes [id number] 81336L Q1W Take 1 capsule (50,000 units total) by mouth once a week. Kellee pinedo ondansetron (ZOFRAN-ODT ) disintegrat ing tablet 4 mg 2023-07 20:15: 00 05-19 19:27 :00 No 4mg 4 mg, Oral, ONCE, 1 dose, On Sat05/19/24 at 1415, Routine [facility] HYDROcodone -acetaminop hen (NORCO 5) tablet 1 tablet 2023-07 18:00: 00 05-19 19:27 :00 No 1{tbl} 1 tablet, Oral, ONCE, 1 dose, On Sat05/19/24 at 1200, RO[facility]N [facility] ondansetron 4 mg disintegrat ing tablet 2023-07 00:00: 00 11-01 00:00 :00 No [id number] 4mg Take 1 tablet by mouth every 8 (eight) hours as needed for Nausea and Vomiting (N/V). [facility] hydrOXYzine Pamoate 50 MG oral Capsule 2023-07 10:26: 29 Yes [id number] 50mg Q.5D Take 1 capsule (50 mg total) by mouth 2 times daily as needed for anxiety. Kellee pinedo ondansetron (ZOFRAN (PF)) injection 4 mg 2023-07 03:45: 00 05-18 03:42 :00 No 4mg 4 mg, Slow IV Push, ONCE, 1 dose, On 05/17/24 at 2145, [facility] morpHINE (4 mg/mL) injection 4 mg 2023-07 03:45: 00 05-18 03:42 :00 No 4mg 4 mg, Slow IV Push, ONCE, 1 dose, On 05/17/24 at 2145, STAT [facility] ondansetron (ZOFRAN (PF)) injection 4 mg 2023-07 01:00: 00 05-18 01:21 :00 No 4mg 4 mg, Slow IV Push, ONCE, 1 dose, On 05/17/24 at 1900, [facility] fentanyl PF (SUBLIMAZE (PF)) injection 50 mcg 2023-07 01:00: 00 05-18 01:21 :00 No 50ug 50 mcg, Slow IV Push, ONCE, 1 dose, On 05/17/24 at 1900, [facility] Suvorexant (Belsomra) 20 MG oral Tablet 2023-07 00:00: 00 Yes [id number] 1{tbl} QD Take 1 tablet by mouth nightly. Kellee pinedo Methocarbam ol 750 MG oral Tablet 2023-07 00:00: 00 Yes [id number] 750mg Q.25D Take 1 tablet (750 mg total) by mouth 4 times daily. Kellee pinedo Acetaminoph en-Codeine 300-30 MG oral Tablet 2023-07 00:00: 00 Yes [id number] Kellee pinedo Lorazepam (ATIVAN) 0.5 MG oral Tablet tablet 2023-07 00:00: 00 Yes [id number] .5mg Q.5D Take 1 tablet (0.5 mg total) by mouth 2 times daily as needed for anxiety. Kellee pinedo Sertraline HCl 50 MG oral Tablet 2023-07 00:00: 00 Yes [id number] 50mg QD Take 1 tablet (50 mg total) by mouth daily Take in addition to 100 mg tablet for a total dose of 150 mg daily. Kellee pinedo Sertraline HCl 100 MG oral Tablet 2023-07 00:00: 00 Yes [id number] 100mg Take 1 tablet (100 mg total) by mouth every morning Take in addition to 50 mg tablet for a total dose of 150 mg daily. Kellee pinedo Isosorbide Mononitrate CR 30 MG oral TABLET SR 24 HR 2023-07 00:00: 00 01-07 00:00 :00 No [id number] Kellee pinedo ondansetron (ZOFRAN (PF)) injection 4 mg 2023-07 01:30: 00 05-08 00:31 :00 No 4mg 4 mg, Slow IV Push, ONCE, 1 dose, On [facility] 05/07/24 at 2030, ROSE[place]N [facility] morpHINE (4 mg/mL) injection 4 mg 2023-07 01:30: 00 05-08 01:20 :00 No 4mg 4 mg, Slow IV Push, ONCE, 1 dose, On [place] 05/07/24 at 2030, STAT [facility] ketorolac (TORADOL) injection 15 mg 2023-07 01:30: 00 05-08 00:30 :00 No 15mg 15 mg, Slow IV Push, ONCE, 1 dose, On [facility] 05/07/24 at 2030, RO[facility] [facility] phenazopyri dine 200 mg tablet 2023-07 00:00: 00 11-01 00:00 :00 No [id number] 200mg Take 1 tablet by mouth in the morning and 1 tablet at noon and 1 tablet in the evening. [facility] Rosuvastati n Calcium 20 MG oral Tablet 2023-07 00:00: 00 01-07 00:00 :00 No 20mg QD Take 1 tablet (20 mg total) by mouth daily. Kellee pinedo Metoprolol Succinate 25 MG oral TABLET SR 24 HR 2023-07 0-29 00:00: 00 Yes [id number] 25mg QD Take 1 tablet (25 mg total) by mouth daily. Kellee pinedo Dicyclomine HCl 20 MG oral Tablet 2023-07 0- 00:00: 00 Yes Kellee pinedo Ondansetron (ZOFRAN) 4 MG oral TABLET DISPERSIBLE 2023-07 0 00:00: 00 Yes 4mg Q.[id number] 3D Take 1 tablet (4 mg total) by mouth 3 times daily. Kellee pinedo Belsomra 20 MG oral Tablet 2023-07 00:00: 00 05-18 00:00 :00 No [id number] 1{tbl} QD take 1 tablet by mouth every day at night Kellee pinedo Nitrofurant oin (Macrobid *) 100 Mg CAP Nitrofurant oin (Macrobid *) 100 Mg CAP 2023-07 0-04 18:32: 00 10-14 01:54 :00 No 100mg [facility] Ondansetron Hcl (Zofran *) 4 Mg Tablet Disint Ondansetron Hcl (Zofran *) 4 Mg Tablet Disint 2023-07 0 18:32: 00 10-14 01:54 :00 No 1{tbl} [facility] cefTRIAXone (ROCEPHIN) 1,000 mg in NaCl 0.9% (NS) 100 mL MINI-BAG 2023-07 0- 01:15: 00 04-09 01:24 :00 No 1000mg 1,000 mg, IV Piggyback, ONCE, 1 dose, On Sat04/08/24 at 2014, Administer over 30 Minutes, 100 mL, Reason for Anti-Infec tive: Documented Infection, Documented Infection Site: Urine, Duration of Therapy: Once (ED) [facility] fentanyl PF (SUBLIMAZE (PF)) injection 25 mcg 2023-07 0- 00:15: 00 04-09 00:18 :00 No 25ug 25 mcg, Slow IV Push, ONCE, 1 dose, On Sat04/08/24 at 1915, STAT [facility] NaCl 0.9% (NS) bolus infusion 1,000 mL 2023-07 23:45: 00 04-09 01:24 :00 No 1000mL at 999 mL/hr, 1,000 mL, IV Infusion, ONCE, 1 dose, On Sat04/08/24 at 1845, [facility] ondansetron (ZOFRAN (PF)) injection 4 mg 2023-07 23:00: 00 04-08 22:57 :00 No 4mg 4 mg, Slow IV Push, ONCE, 1 dose, On Sat04/08/24 at 1800, [facility] ketorolac (TORADOL) injection 30 mg 2023-07 23:00: 00 04-08 22:57 :00 No 30mg 30 mg, Slow IV Push, ONCE, 1 dose, On Sat04/08/24 at 1800, [facility] sodium chloride (NS) injection 5 mL 2023-07 22:33: 00 Yes 5mL 5 mL, Intravenou s, PRN, Starting on Sat04/08/24 at 1733, Until Discontinu ed, Routine, IV line flushing [facility] ciprofloxac in HCl 500 mg tablet 2023-07 00:00: 00 11-01 00:00 :00 No [id number] 500mg Take 1 tablet by mouth in the morning and 1 tablet in the evening. [facility] Promethazin e HCl (PHENERGAN) 25 MG oral Tablet 03-14 00:00: 00 01-07 00:00 :00 No 25mg Q.[id number] 3D Take 1 tablet (25 mg total) by mouth every 8 hours as needed for nausea. Kellee pinedo Aspirin Low Dose 81 MG oral Tablet Delayed Response 8-05 00:00: 00 Yes [id number] 81mg QD take 1 tablet by mouth every day Kellee pinedo Clopidogrel Bisulfate (PLAVIX) 75 MG oral Tablet 02-09 00:00: 00 Yes [id number] 75mg QD take 1 tablet by mouth every day Kellee pinedo Methylpredn isolone Acetate (Depo-Medro l) 40 mg/ml - Physician Administere d ([id number]) 02-05 13:21: 25 No [id number] 9104 40mg 40 mg, Physician Administer ed, ONCE, 1 dose, On [place] 02/06/24 at 1145 Kellee pineod hydrOXYzine Pamoate 50 MG oral Capsule 02-05 11:06: 49 Yes [id number] 50mg Q.5D Take 1 capsule (50 mg total) by mouth 2 times daily as needed for anxiety. Kellee pinedo Isosorbide Mononitrate CR 60 MG oral TABLET SR 24 HR 02-04 00:00: 00 Yes Kellee pinedo Lorazepam (ATIVAN) 0.5 MG oral Tablet tablet 01-09 00:00: 00 Yes [id number] .5mg Q.5D take 1 tablet by mouth 2 times daily as needed for anxiety Kellee pinedo Aspirin (Aspirin Low Dose) 81 MG oral Tablet Delayed Response 01-05 00:00: 00 Yes [id number] 81mg QD Take 1 tablet (81 mg total) by mouth daily. Kellee pinedo Atorvastati n Calcium 40 MG oral Tablet 01-05 00:00: 00 Yes [id number] 40mg QD Take 1 tablet (40 mg total) by mouth daily. Kellee pinedo Suvorexant (Belsomra) 20 MG oral Tablet 01-05 00:00: 00 Yes [id number] 1{tbl} QD Take 1 tablet by mouth nightly. eKllee pinedo Clopidogrel Bisulfate (PLAVIX) 75 MG oral Tablet 01-05 00:00: 00 Yes [id number] 75mg QD Take 1 tablet (75 mg [...] MG oral Capsule 12-12 09:19: 23 Yes [id number] 50mg Q.5D Take 1 capsule (50 mg total) by mouth 2 times daily as needed for anxiety. Kellee pinedo Lorazepam (ATIVAN) 0.5 MG oral Tablet tablet 12-12 00:00: 00 Yes [id number] .5mg Q.5D Take 1 tablet (0.5 mg total) by mouth 2 times daily as needed for anxiety. Kellee pinedo Aspirin Low Dose 81 MG oral Tablet Delayed Response 12-05 00:00: 00 Yes [id number] 81mg Take 1 tablet (81 mg total) by mouth daily. Kellee pinedo Atorvastati n Calcium 40 MG oral Tablet 12-05 00:00: 00 Yes [id number] 40mg Take 1 tablet (40 mg total) by mouth daily. Kellee pinedo Clopidogrel Bisulfate (PLAVIX) 75 MG oral Tablet 12-05 00:00: 00 Yes [id number] 75mg Take 1 tablet (75 mg total) by mouth daily. Kellee pinedo Mometasone Furo-Formot camelia Fum (Dulera) 200-5 MCG/ACT inhalation Aerosol 12-05 00:00: 00 05-18 00:00 :00 No TWICE DAILY Kellee pinedo Vitamin D, Ergocalcife rol, 1.25 MG (98595 UT) oral Capsule 12-04 00:00: 00 Yes [id number] 27076W Q1W Take 1 capsule (50,000 units total) by mouth once a week. Kellee pinedo Ferrous Sulfate 325 (65 Fe) MG oral Tablet 12-04 00:00: 00 Yes [id number] 325mg QD Take 1 tablet (325 mg total) by mouth daily (with breakfast) . Kellee pinedo Clopidogrel Bisulfate (PLAVIX) 75 MG oral Tablet 12-04 00:00: 00 01-07 00:00 :00 No 75mg Take 1 tablet (75 mg total) by mouth. Kellee pinedo Mirtazapine 45 MG oral Tablet 12-02 10:49: 07 12-02 00:00 :00 No [id number] 45mg Take 1 tablet (45 mg total) by mouth nightly. Kellee pinedo hydrOXYzine Pamoate 50 MG oral Capsule 12-02 10:49: 04 Yes [id number] 50mg Q.5D Take 1 capsule (50 mg total) by mouth 2 times daily as needed for anxiety. Kellee pinedo Ascorbic Acid 500 MG oral Tablet 12-02 10:48: 55 12-02 00:00 :00 No 50mg Take 50 mg by mouth. Kellee pinedo Suvorexant (Belsomra) 20 MG oral Tablet 12-02 00:00: 00 Yes [id number] 1{tbl} Take 1 tablet by mouth nightly. Kellee pinedo Lorazepam 1 MG oral Tablet 12-02 00:00: 00 12-12 00:00 :00 No [id number] 1mg Q.5D Take 1 tablet (1 mg total) by mouth 2 times daily as needed for anxiety. Kellee pinedo Doxepin HCl 3 MG oral Tablet 11-27 00:00: 00 05-18 00:00 :00 No [id number] 1{tbl} QD TAKE 1 TABLET BY MOUTH EVERY DAY AT NIGHT Kellee pinedo Aripiprazol e 5 MG oral Tablet 11-27 00:00: 00 05-18 00:00 :00 No [id number] 5mg QD TAKE 1 TABLET (5 MG TOTAL) BY MOUTH DAILY. Kellee pinedo Mirtazapine 45 MG oral Tablet 10-28 13:20: 59 Yes [id number] 45mg Take 1 tablet (45 mg total) by mouth nightly. Kellee piendo Ascorbic Acid 500 MG oral Tablet 10-28 13:20: 47 Yes 50mg Take 50 mg by mouth. Kellee pinedo hydrOXYzine Pamoate 50 MG oral Capsule 10-28 13:20: 47 10-28 00:00 :00 No [id number] 50mg Q.5D Take 1 capsule (50 mg total) by mouth every 4 to 6 hours as needed. Kellee pinedo Sertraline HCl 150 MG oral Capsule 10-28 13:20: 03 10-28 00:00 :00 No 150mg Take 150 mg by mouth daily. Kellee pinedo Doxepin HCl 3 MG oral Tablet 10-28 00:00: 00 Yes [id number] 1{tbl} Take 1 tablet by mouth nightly. Kellee pinedo Aripiprazol e 5 MG oral Tablet 10-28 00:00: 00 Yes [id number] 5mg Take 1 tablet (5 mg total) by mouth daily. Kellee pinedo Suvorexant 10 MG oral Tablet 10-28 00:00: 00 12-02 00:00 :00 No [id number] 1{tbl} Take 1 tablet by mouth nightly. Kellee pinedo Sertraline HCl 50 MG oral Tablet 10-26 00:00: 00 Yes [id number] Kellee pinedo HYDROcodone -acetaminop hen (NORCO) 10-325 mg tablet 1 tablet 10-10 06:15: 00 10-10 05:25 :00 No 1{tbl} 1 tablet, Oral, ONCE NOW, 1 dose, On Sat10/11/23 at 0115, [facility] iopamidol (ISOVUE 370-500 mL) injection 100 mL 10-10 05:00: 00 10-10 05:00 :00 No [id number] 100mL 100 mL, Intravenou s, ONCE, 1 dose, On Sat10/11/23 at 0000, Routine [facility] ketorolac (TORADOL) injection 30 mg 10-10 04:30: 00 10-10 03:29 :00 No 30mg 30 mg, Slow IV Push, ONCE, 1 dose, On [place] 10/10/23 at 2330, Routine [facility] NaCl 0.9% (NS) IV infusion 1,000 mL 10-10 04:15: 00 10-10 05:18 :00 No 1000mL at 999 mL/hr, Intravenou s, ONCE, 1 dose, On [place] 10/10/23 at 2315, Routine [facility] ondansetron (ZOFRAN (PF)) injection 4 mg 10-10 04:00: 00 10-10 03:54 :00 No 4mg 4 mg, Slow IV Push, ONCE, 1 dose, On [place] 10/10/23 at 2300, [place] [facility] morpHINE (4 mg/mL) injection 4 mg 10-10 04:00: 00 10-10 03:54 :00 No 4mg 4 mg, Slow IV Push, ONCE, 1 dose, On [place] 10/10/23 at 2300, STAT [facility] traMADoL (ULTRAM) 50 mg tablet 10-10 00:00: 00 11-01 00:00 :00 No [id number] 50mg Take 1 tablet by mouth every 6 (six) hours as needed for Pain (scale 7-10). Indication s: acute pain [facility] phenazopyri dine 200 mg tablet 10-10 00:00: 00 11-01 00:00 :00 No [id number] 200mg Take 1 tablet by mouth in the morning and 1 tablet at noon and 1 tablet in the evening. [facility] ondansetron (ZOFRAN) 4 mg tablet 10-10 00:00: 00 11-01 00:00 :00 No [id number] 4mg Take 1 tablet by mouth every 8 (eight) hours as needed for Nausea and Vomiting (N/V). [facility] ketorolac 10 mg tablet 10-10 00:00: 00 11-01 00:00 :00 No [id number] 10mg Take 1 tablet by mouth every 6 (six) hours as needed for Pain (scale 7-10). [facility] Sertraline HCl 100 MG oral Tablet 10-09 00:00: 00 Yes [id number] 100mg Take 1 tablet (100 mg total) by mouth every morning. Kellee Buckley - Shobha pinedo acetaminoph en (TYLENOL) tablet 975 mg 2022-07 04:15: 00 07-02 03:11 :00 No 975mg 975 mg, Oral, ONCE, 1 dose, On Sat07/01/23 at 2215, [facility] dicyclomine (BENTYL) tablet 20 mg 2022-07 03:15: 00 07-02 03:11 :00 No 20mg 20 mg, Oral, ONCE, 1 dose, On Sat07/01/23 at 2115, [facility] ketorolac (TORADOL) injection 30 mg 2022-07 03:15: 00 07-02 02:32 :00 No 30mg 30 mg, Slow IV Push, ONCE, 1 dose, On Sat07/01/23 at 2115, Routine [facility] ondansetron (ZOFRAN (PF)) injection 4 mg 2022-07 03:00: 00 07-02 02:03 :00 No 4mg 4 mg, Slow IV Push, ONCE, 1 dose, On Sat07/01/23 at 2100, [facility] NaCl 0.9% (NS) bolus infusion 1,000 mL 2022-07 03:00: 00 07-02 04:10 :00 No 1000mL at 999 mL/hr, 1,000 mL, IV Infusion, ONCE, 1 dose, On Sat07/01/23 at 2100, STAT [facility] dicyclomine 20 mg tablet 2022-07 00:00: 00 11-01 00:00 :00 No [id number] 20mg Take 1 tablet by mouth 4 (four) times daily. [facility] ondansetron 4 mg disintegrat ing tablet 2022-07 00:00: 00 11-01 00:00 :00 No [id number] 4mg Take 1 tablet by mouth every 4 (four) hours as needed for Nausea and Vomiting (N/V). [facility] Alprazolam (Alprazolam *) 1 Mg TAB Alprazolam (Alprazolam *) 1 Mg TAB 2022-07 12:08: 00 06-14 00:00 :00 No 1mg [facility] Trazodone Hcl (Desyrel 100 Mg*) 100 Mg TAB Trazodone Hcl (Desyrel 100 Mg*) 100 Mg TAB 2022-07 12:07: 00 06-06 12:08 :00 No 1 [facility] Aspirin (Aspirin Ec) [address] Aspirin (Aspirin Ec) [address] 2022-07 11:55: 00 07-07 00:00 :00 No 81mg [facility] Alprazolam (Xanax 2 Mg*) 2 Mg TAB Alprazolam (Xanax 2 Mg*) 2 Mg TAB 2022-07 11:09: 40 06-06 12:08 :00 No 2mg [facility] Trazodone Hcl (Desyrel 300 Mg*) 300 Mg TAB Trazodone Hcl (Desyrel 300 Mg*) 300 Mg TAB 2022-07 11:09: 39 05-13 15:45 :00 No 300 [facility] Alprazolam 1 MG oral Tablet 2022-07 00:00: 00 12-12 00:00 :00 No [id number] 2mg Take 2 tablets (2 mg total) by mouth 2 times daily. Kellee Reyesoprazol e * (Protonix Ec *) 20 Mg Tablet Pantoprazol e * (Protonix Ec *) 20 Mg Tablet 2022-07 15:44: 00 06-05 00:28 :[address] [facility] Sucralfate (Carafate *) 1 Gm TAB Sucralfate (Carafate *) 1 Gm TAB 2022-07 15:44: 00 06-05 00:28 :[address] [facility] Ciprofloxac in Hcl (Cipro *) 500 Mg TAB Ciprofloxac in Hcl (Cipro *) 500 Mg TAB 2022-07 15:44: 00 05-16 00:00 :[address] [facility] Pantoprazol e Sodium 20 MG oral Tablet Delayed Response 2022-07 00:00: 00 12-02 00:00 :00 No Take by mouth. Kellee pinedo ketorolac (TORADOL) injection 15 mg 2022-07 01:00: 00 05-10 00:09 :00 No 15mg 15 mg, Slow IV Push, ONCE, 1 dose, On Sat05/09/23 at 2000, [facility] proCHLORper azine (COMPAZINE) injection 5 mg 2022-07 23:30: 00 05-09 22:48 :00 No 5mg 5 mg, Slow IV Push, ONCE, 1 dose, On Sat05/09/23 at 1830, [facility] diphenhydrA MINE (BENADRYL) injection 25 mg 2022-07 22:45: 00 05-09 22:48 :00 No 25mg 25 mg, Slow IV Push, ONCE, 1 dose, On Sat05/09/23 at 1745, [facility] HYDROcodone -acetaminop hen (NORCO) 10-325 mg tablet 1 tablet 2022-07 0-25 02:00: 00 05-01 01:04 :00 No 1{tbl} 1 tablet, Oral, ONCE, 1 dose, On Sat04/30/23 at 2100, Routine [facility] iopamidol (ISOVUE 370-500 mL) injection 100 mL 2022-07 00:45: 00 05-01 00:45 :00 No [id number] 100mL 100 mL, Intravenou s, ONCE, 1 dose, On Sat04/30/23 at 1945, Routine [facility] NaCl 0.9% (NS) bolus infusion 1,000 mL 2022-07 00:00: 00 05-01 00:45 :00 No 1000mL at 999 mL/hr, 1,000 mL, IV Piggyback, ONCE, 1 dose, On Sat04/30/23 at 1900, STAT [facility] proCHLORper azine (COMPAZINE) injection 5 mg 2022-07 23:45: 00 04-30 23:09 :00 No 5mg 5 mg, Slow IV Push, ONCE, 1 dose, On Sat04/30/23 at 1845, [facility] diphenhydrA MINE (BENADRYL) injection 25 mg 2022-07 23:00: 00 04-30 23:09 :00 No 25mg 25 mg, Slow IV Push, ONCE, 1 dose, On Sat04/30/23 at 1800, STAT [facility] dicyclomine 20 mg tablet 2022-07 00:00: 00 07-01 00:00 :00 No [id number] 20mg Take 1 tablet by mouth 4 (four) times daily. [facility] acetaminoph en (TYLENOL) tablet 1,000 mg 2022-07 02:45: 00 04-17 02:43 :00 No 1000mg 1,000 mg, Oral, ONCE, 1 dose, On Sat04/16/23 at 2145, [facility] ondansetron (ZOFRAN (PF)) injection 4 mg 2022-07 03:15: 00 04-09 02:13 :00 No 4mg 4 mg, Slow IV Push, ONCE, 1 dose, [facility]04/08/23 at 2215[facility] (BENTYL[facility] 20 mg 2022-07 0 03:15: 00 04-09 02:16 :00 No 20mg 20 mg, Oral, ONCE, 1 dose, On 04/08/23 at 2215, Routine [facility] ondansetron (ZOFRAN (PF)) injection 4 mg 2022-07 23:45: 00 04-08 23:16 :00 No 4mg 4 mg, Slow IV Push, ONCE, 1 dose, On Sat04/08/23 at 1845, [facility] morpHINE (2 mg/mL) injection 4 mg 2022-07 23:45: 00 04-08 23:45 :00 No 4mg 4 mg, Slow IV Push, ONCE, 1 dose, On Sat04/08/23 at 1845, STAT [facility] ondansetron 4 mg disintegrat ing tablet 2022-07 00:00: 00 07-01 00:00 :00 No [id number] 4mg Take 1 tablet by mouth every 8 (eight) hours as needed for Nausea and Vomiting (N/V). [facility] dicyclomine 20 mg tablet 2022-07 00:00: 00 04-30 00:00 :00 No [id number] 20mg Take 1 tablet by mouth 4 (four) times daily. [facility] acetaminoph en (TYLENOL) tablet 1,000 mg 03-10 04:30: 00 03-10 04:29 :00 No 1000mg 1,000 mg, Oral, ONCE, 1 dose, On 03/09/23 at 2330, [facility] iopamidol (ISOVUE 370-500 mL) injection 85 mL 03-10 04:30: 00 03-10 04:30 :00 No [id number] 85mL 85 mL, Intravenou s, ONCE, 1 dose, On 03/09/23 at 2330, Routine [facility] FENTanyl PF (SUBLIMAZE (PF)) injection 75 mcg 03-10 04:00: 00 03-10 02:58 :00 No 75ug 75 mcg, Slow IV Push, ONCE, 1 dose, On 03/09/23 at 2300, STAT [facility] NaCl 0.9% (NS) IV infusion 1,000 mL 03-10 03:00: 00 Yes 1000mL at 20 mL/hr, IV Infusion, CONTINUOUS , Starting on 03/09/23 at 2200, Until Discontinu ed, Routine [facility] ondansetron (ZOFRAN (PF)) injection 4 mg 03-10 02:00: 00 03-10 02:01 :00 No 4mg 4 mg, Slow IV Push, ONCE, 1 dose, On 03/09/23 at 2100, [facility] morpHINE (4 mg/mL) injection 4 mg 03-10 02:00: 00 03-10 02:01 :00 No 4mg 4 mg, Slow IV Push, ONCE, 1 dose, On 03/09/23 at 2100, STAT [facility] polyethylen e glycol 3350 (MIRALAX) 17 gram powder 03-09 00:00: 00 11-01 00:00 :00 No [id number] 1{packe t} Take 1 Packet by mouth once daily as needed for Constipati on. [facility] Simethicone 125 mg 03-09 00:00: 00 11-01 00:00 :00 No [id number] 125mg Take 1 capsule by mouth after meals and at bedtime as needed for Gas. [facility] iopamidol (ISOVUE 370-500 mL) injection 100 mL 03-02 06:15: 00 03-02 06:15 :00 No [id number] 100mL 100 mL, Intravenou s, ONCE, 1 dose, On 03/02/23 at 0115, Routine [facility] NaCl 0.9% (NS) IV infusion 1,000 mL 03-02 05:15: 00 Yes 1000mL at 999 mL/hr, Intravenou s, CONTINUOUS , Starting on 03/02/23 at 0015, Until Discontinu ed, Routine [facility] ketorolac (TORADOL) injection 30 mg 03-02 05:15: 00 03-02 04:20 :00 No 30mg 30 mg, Slow IV Push, ONCE, 1 dose, On 03/02/23 at 0015, Routine [facility] ondansetron (ZOFRAN (PF)) injection 4 mg 03-02 05:00: 00 03-02 05:24 :00 No 4mg 4 mg, Slow IV Push, ONCE, 1 dose, On 03/02/23 at 0000, [facility] morpHINE (4 mg/mL) injection 4 mg 03-02 05:00: 00 03-02 05:24 :00 No 4mg 4 mg, Slow IV Push, ONCE, 1 dose, On 03/02/23 at 0000, STAT [facility] ondansetron (ZOFRAN (PF)) injection 4 mg 03-02 04:15: 00 03-02 04:21 :00 No 4mg 4 mg, Slow IV Push, ONCE, 1 dose, On Sat03/01/23 at 2315, [facility] ondansetron (ZOFRAN) 4 mg tablet 03-02 00:00: 00 11-01 00:00 :00 No [id number] 4mg Take 1 tablet by mouth every 8 (eight) hours as needed for Nausea and Vomiting (N/V). [facility] dicyclomine 20 mg tablet 03-02 00:00: 00 04-30 00:00 :00 No [id number] 20mg Take 1 tablet by mouth every 6 (six) hours as needed for Abdominal pain. [facility] metoclopram tracy HCl (REGLAN) injection 10 mg 02-18 06:45: 00 02-18 06:43 :00 No 10mg 10 mg, Slow IV Push, ONCE, 1 dose, On Sat02/18/23 at 0145, [facility] morpHINE (4 mg/mL) injection 4 mg 02-18 05:30: 00 02-18 05:28 :00 No 4mg 4 mg, Slow IV Push, ONCE, 1 dose, On Sat02/18/23 at 0030, STAT [facility] ondansetron (ZOFRAN (PF)) injection 4 mg 02-18 05:30: 00 02-18 05:28 :00 No 4mg 4 mg, Slow IV Push, ONCE, 1 dose, On Sat02/18/23 at 0030, [facility] NaCl 0.9% (NS) bolus infusion 1,000 mL 02-18 05:30: 00 02-18 05:15 :00 No 1000mL at 999 mL/hr, 1,000 mL, IV Infusion, ONCE, 1 dose, On Sat02/18/23 at 0030, STAT [facility] proMETHazin e (PHENERGAN) 25 mg in NaCl 0.9% (NS) 50 mL IV piggyback 02-18 04:30: 00 02-18 04:28 :00 No 25mg 25 mg, IV Piggyback, ONCE, 1 dose, On Sat02/17/23 at 2330, [facility] proMETHazin e 25 mg tablet 02-18 00:00: 00 11-01 00:00 :00 No [id number] 25mg Take 1 tablet by mouth every 6 (six) hours as needed for Nausea and Vomiting (N/V). [facility] bupropion HCl (WELLBUTRIN ORAL) 02-17 16:23: 24 Yes 150mg Take 150 mg by mouth every morning. [facility] melatonin 10 mg Tab 02-17 16:23: 24 Yes 1{tbl} Take 1 tablet by mouth at bedtime. [facility] trazodone HCl (TRAZODONE ORAL) 02-17 16:23: 24 Yes 400mg Take 400 mg by mouth at bedtime. [facility] ALPRAZOLAM ORAL 02-17 16:23: 11-04 00:00 :00 No 2mg Take 2 mg by mouth in the morning and 2 mg in the evening. [facility] escitalopra m oxalate (LEXAPRO) 5 mg tablet 02-17 16:23: 11-01 00:00 :00 No 10mg Take 2 tablets by mouth at bedtime. [facility] topiramate (TOPAMAX) 200 mg tablet 02-17 16:23: 11-01 00:00 :00 No 200mg Take 1 tablet by mouth every evening. [facility] OLANZapine (ZYPREXA) 15 mg tablet 02-17 16:23: 11-01 00:00 :00 No 15mg Take 1 tablet by mouth every evening. [facility] melatonin 10 mg Tab 02-17 16:: 11-01 00:00 :00 No 10mg Take 1 tablet by mouth at bedtime. [facility] lactated ringers IV infusion 1,000 mL 02-17 02:15: 00 02-17 22:14 :00 No 1000mL at 100 mL/hr, 1,000 mL, IV Infusion, CONTINUOUS , Starting on 02/16/23 at 2115, Until 02/17/23 at 1714, Routine [facility] traZODone (DESYREL) tablet 400 mg 02-17 02:00: 00 Yes 400mg 400 mg, Oral, QHS, First dose on 02/16/23 at 2100, Until Discontinu ed [facility] melatonin (MELATIN) tablet 9 mg 02-17 02:00: 00 Yes 9mg 9 mg, Oral, QHS, First dose on 02/16/23 at 2100, Until Discontinu ed [facility] morpHINE (2 mg/mL) injection 2 mg 02-17 01:07: 50 2023- 08-25 01:06 :50 No 2mg 2 mg, Slow IV Push, Q4HPRN, Starting on 02/16/23 at 2006, Until [place] 02/28/23 at 2005, Routine, Pain (scale 7-10) [facility] OLANZapine (ZyPREXA) tablet 15 mg 02-16 22:00: 00 Yes 15mg 15 mg, Oral, QPM, First dose on 02/16/23 at 1700, Until Discontinu ed, Routine [facility] buPROPion XL (WELLBUTRIN XL) tablet 150 mg 02-16 14:00: 00 Yes 150mg 150 mg, Oral, DAILY, First dose on [facility] 02/16/23 at 0900, Until Discontinu ed [facility] enoxaparin (LOVENOX) injection 40 mg 02-16 14:00: 00 Yes 40mg 40 mg, Subcutaneo us, DAILY, First dose on [facility] 02/16/23 at 0900, Until Discontinu ed, Routine [facility] methocarbam oL (ROBAXIN) tablet 500 mg 02-16 06:04: 59 Yes 500mg 500 mg, Oral, Q6HPRN, Starting on 02/16/23 at 0104, Until Discontinu ed, Routine, Muscle Spasms [facility] ALPRAZolam (XANAX) tablet 2 mg 02-16 06:03: 54 Yes 2mg 2 mg, Oral, TIDPRN, Starting on 02/16/23 at 0103, Until Discontinu ed, Anxiety [facility] lactated ringers IV infusion 1,000 mL 02-16 03:15: 00 02-16 23:14 :00 No 1000mL at 100 mL/hr, 1,000 mL, IV Infusion, CONTINUOUS , Starting on Sat02/15/23 at 2215, Until 02/16/23 at 1814, Routine [facility] morpHINE (2 mg/mL) injection 2 mg 02-16 03:07: 02 02-17 01:08 :14 No 2mg 2 mg, Slow IV Push, Q4HPRN, Starting on Sat02/15/23 at 2207, Until 02/16/23 at 2008, Routine, Pain (scale 7-10) [facility] traMADoL (ULTRAM) tablet 50 mg 02-16 03:06: 59 02-18 03:05 :59 No 50mg 50 mg, Oral, Q8HPRN, Starting on Sat02/15/23 at 2206, Until Sat02/17/23 at 2205, Routine, Pain (scale 4-6) [facility] acetaminoph en (TYLENOL) tablet 1,000 mg 02-16 03:06: 50 Yes 1000mg 1,000 mg, Oral, Q6HPRN, Starting on Sat02/15/23 at 2206, Until Discontinu ed, Routine, Pain (scale 1-3), Temp > 38 C [facility] ALPRAZolam (XANAX) 1 mg tablet 02-16 01:09: 19 02-15 00:00 :00 No 1mg Take 1 tablet by mouth in the morning and 1 tablet in the evening. [facility] iopamidol (ISOVUE 370-500 mL) injection 80 mL 02-16 00:30: 00 02-16 00:30 :00 No [id number] 80mL 80 mL, Intravenou s, ONCE, 1 dose, On Sat02/15/23 at 1930, Routine [facility] lactated ringers IV infusion 1,000 mL 02-16 00:00: 00 02-16 03:07 :30 No [id number] 1000mL at 500 mL/hr, 1,000 mL, IV Infusion, CONTINUOUS , Starting on Sat02/15/23 at 1900, Until Sat02/15/23 at 2207, [facility] FENTanyl PF (SUBLIMAZE (PF)) injection 75 mcg 02-15 23:45: 00 02-15 23:13 :00 No [id number] 75ug 75 mcg, Slow IV Push, ONCE, 1 dose, On Sat02/15/23 at 1845, Routine [facility] dicyclomine (BENTYL) injection 20 mg 02-15 22:15: 00 02-15 21:46 :00 No [id number] 20mg 20 mg, Intramuscu lar, ONCE NOW, 1 dose, On Sat02/15/23 at 1715, Routine [facility] LORazepam (ATIVAN) injection 1 mg 02-15 21:45: 00 02-15 21:46 :00 No [id number] 1mg 1 mg, Slow IV Push, ONCE, 1 dose, On Sat02/15/23 at 1645, STAT [facility] ondansetron (ZOFRAN (PF)) injection 4 mg 02-15 21:45: 00 02-15 21:46 :00 No [id number] 4mg 4 mg, Slow IV Push, ONCE, 1 dose, On Sat02/15/23 at 1645, [facility] HYDROcodone -acetaminop hen (NORCO) 10-325 mg tablet 1 tablet 02-15 20:15: 00 02-15 19:52 :00 No [id number] 1{tbl} 1 tablet, Oral, ONCE, 1 dose, On Sat02/15/23 at 1515, Routine [facility] Melatonin 1 mg tablet 02-15 20:08: 23 02-15 00:00 :00 No 10mg Take 10 tablets by mouth every evening. [facility] trazodone HCl (DESYREL ORAL) 02-15 20:06: 33 02-15 00:00 :00 No 200mg Take 200 mg by mouth every evening. [facility] OLANZapine (ZYPREXA) 2.5 mg tablet 02-15 20:05: 48 02-15 00:00 :00 No 2.5mg Take 1 tablet by mouth in the morning and 1 tablet in the evening. [facility] hydrOXYzine (VISTARIL) 50 mg capsule 02-15 20:03: 04 02-15 00:00 :00 No 50mg Take 1 capsule by mouth every 4 (four) hours as needed for Itching. q 4-6 hours as needed [facility] dicyclomine (BENTYL) tablet 20 mg 02-15 19:30: 00 02-15 19:52 :00 No [id number] 20mg 20 mg, Oral, ONCE, 1 dose, On Sat02/15/23 at 1430, [facility] ([facility] tablet 800 mg 02-15 19:30: 00 02-15 19:52 :00 No [id number] 800mg 800 mg, Oral, ONCE, 1 dose, On Sat02/15/23 at 1430, [facility] losartan 50 mg tablet 02-15 13:44: 36 02-15 00:00 :00 No 50mg Take 1 tablet by mouth in the morning. [facility] [place]-3-DHA -EPA-Fish Oil (FISH OIL) 1,000 mg (120 mg-180 mg) Cap 02-15 13:44: 15 02-15 00:00 :00 No 1000mg Take 1,000 mg by mouth daily. [facility] methocarbam oL 750 mg tablet 02-15 13:43: 47 02-15 00:00 :00 No 750mg Take 750 mg by mouth 3 (three) times daily. [facility] FENTanyl PF (SUBLIMAZE (PF)) injection 50 mcg 01-10 00:45: 00 01-09 23:46 :00 No 50ug 50 mcg, Slow IV Push, ONCE, 1 dose, On Sat01/09/22 at 1945, Routine [facility] ketorolac (TORADOL) injection 30 mg 01-09 23:45: 00 01-09 22:48 :00 No 30mg 30 mg, Slow IV Push, ONCE, 1 dose, On Sat01/09/22 at 1845, Routine [facility] aspirin chewable tablet 243 mg 12-14 14:00: 00 Yes 243mg 243 mg, Oral, DAILY, First dose on [place] 12/14/21 at 0900, Until Discontinu ed, Routine [facility] ketorolac (TORADOL) injection 15 mg 12-14 08:15: 00 12-14 07:11 :00 No 15mg 15 mg, Slow IV Push, ONCE, 1 dose, On [place] 12/14/21 at 0315, [facility] morpHINE (4 mg/mL) injection 4 mg 12-14 05:45: 00 12-14 04:52 :00 No 4mg 4 mg, Slow IV Push, ONCE, 1 dose, On [place] 12/14/21 at 0045, STAT [facility] cefTRIAXone (ROCEPHIN) 1,000 mg in NaCl 0.9% (NS) 50 mL MINI-BAG 12-14 05:45: 00 12-14 05:30 :00 No 1000mg 1,000 mg, IV Piggyback, ONCE, 1 dose, On [place] 12/14/21 at 0045, Administer over 30 Minutes, 50 mL
Reas on for Anti-Infec tive: Documented Infection< br>Documen kaushik Infection Site: Urine
D uration of Therapy: Other (see Comments) [facility] NaCl 0.9% (NS) bolus infusion 1,000 mL 12-14 05:45: 00 12-14 07:20 :00 No 1000mL at 999 mL/hr, 1,000 mL, IV Infusion, ONCE, 1 dose, On [place] 12/14/21 at 0045, [facility] ondansetron (ZOFRAN (PF)) injection 4 mg 12-14 04:45: 00 12-14 03:50 :00 No 4mg 4 mg, Slow IV Push, ONCE, 1 dose, On Sat12/13/21 at 2345, [facility] FENTanyl PF (SUBLIMAZE (PF)) injection 50 mcg 12-14 04:45: 00 12-14 03:50 :00 No 50ug 50 mcg, Slow IV Push, ONCE, 1 dose, On Sat12/13/21 at 2345, Routine [facility] ALPRAZolam (XANAX) 1 mg tablet 12-14 02:22: 13 Yes 1mg Take 1 mg by mouth 2 (two) times daily. [facility] naproxen 500 mg tablet 12-14 00:00: 00 02-15 00:00 :00 No [id number] 500mg Take 1 tablet by mouth 2 (two) times daily with meals. [facility] cefpodoxime 200 mg tablet 12-14 00:00: 00 12-22 04:59 :00 No [id number] 200mg Take 1 tablet by mouth 2 (two) times daily for 7 days. [facility] LORazepam (ATIVAN) injection 1 mg 11-12 05:00: 00 11-12 04:01 :00 No 1mg 1 mg, Slow IV Push, ONCE, 1 dose, On 11/12/21 at 0000, STAT [facility] ketorolac (TORADOL) injection 30 mg 11-12 03:30: 00 11-12 02:26 :00 No 30mg 30 mg, Slow IV Push, ONCE, 1 dose, On 11/11/21 at 2230, Routine
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 (ECOTRIN) tablet 325 mg 11-12 03:30: 00 11-12 02:25 :00 No 325mg 325 mg, Oral, ONCE, 1 dose, On 11/11/21 at 2230, STAT [facility] morpHINE (4 mg/mL) injection 4 mg 11-12 02:30: 00 11-12 01:40 :00 No 4mg 4 mg, Slow IV Push, ONCE, 1 dose, On 11/11/21 at 2130, STAT [facility] ondansetron (ZOFRAN (PF)) injection 4 mg 11-12 02:30: 00 11-12 01:40 :00 No 4mg 4 mg, Slow IV Push, ONCE, 1 dose, On 11/11/21 at 2130, [facility] NaCl 0.9% (NS) bolus infusion 1,000 mL 11-12 02:30: 00 11-12 02:30 :00 No 1000mL at 999 mL/hr, 1,000 mL, IV Infusion, ONCE, 1 dose, On 11/11/21 at 2130, [facility] hydrOXYzine 50 mg tablet 11-11 00:00: 00 04-08 00:00 :00 No [id number] 50mg Take 1 tablet by mouth every 8 (eight) hours as needed for Anxiety. [facility] ketorolac (TORADOL) injection 30 mg 09-12 05:45: 00 09-12 04:54 :00 No 30mg 30 mg, Slow IV Push, ONCE, 1 dose, On Sat09/11/21 at 2345, Routine
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
Reas on for Anti-Infec tive: Documented Infection< br>Documen kaushik Infection Site: Urine
D uration of Therapy: 7 days [facility] ondansetron (ZOFRAN (PF)) injection 4 mg 09-12 03:15: 00 2022- 03-08 02:39 :00 No 4mg 4 mg, Slow IV Push, ONCE, 1 dose, On Sat09/11/21 at 2115, [facility] morpHINE injection 4 mg 09-12 03:15: 00 09-12 02:39 :00 No 4mg 4 mg, Slow IV Push, ONCE, 1 dose, On Sat09/11/21 at 2115, STAT [facility] iopamidol (ISOVUE 370-500 mL) injection 120 mL 09-12 02:45: 00 09-12 03:00 :00 No [id number] 120mL 120 mL, Intravenou s, ONCE, 1 dose, On Sat09/11/21 at 2100, Routine [facility] sodium chloride (NS) injection 5 mL 09-12 01:33: 26 Yes 5mL 5 mL, Intravenou s, PRN, Starting on Sat09/11/21 at 1933, Until Discontinu ed, Routine, IV line flushing [facility] ibuprofen 600 mg tablet 09-11 00:00: 00 02-15 00:00 :00 No [id number] 600mg Take 1 tablet by mouth every 6 (six) hours as needed for Pain (scale 4-6). [facility] cefdinir 300 mg capsule 09-11 00:00: 00 09-19 04:59 :00 No [id number] 300mg Take 1 capsule by mouth 2 (two) times daily for 7 days. [facility] HYDROcodone -acetaminop hen (NORCO) 10-325 mg tablet 1 tablet 08-15 09:00: 00 08-15 07:59 :00 No 1{tbl} 1 tablet, Oral, ONCE, 1 dose, On Sat08/15/21 at 0300, Routine [facility] FENTanyl PF (SUBLIMAZE (PF)) injection 75 mcg 08-15 07:30: 00 08-15 06:42 :00 No 75ug 75 mcg, Intramuscu lar, ONCE, 1 dose, On Sat08/15/21 at 0130, Routine [facility] methocarbam oL (ROBAXIN) 500 mg tablet 08-15 00:00: 00 Yes [id number] 500mg Take 1 tablet by mouth every 6 (six) hours as needed for Pain (scale 7-10) (MUSCLE SPASM). [facility] traMADoL (ULTRAM) 50 mg tablet 2- 00:00: 00 11-01 00:00 :00 No [id number] 50mg Take 1 tablet by mouth every 6 (six) hours as needed for Pain (scale 7-10). Indication s: acute pain [facility] Nitrofurant oin&Nit. Macrocryst (MACROBID) 100 mg capsule 08-15 00:00: 00 02-15 00:00 :00 No [id number] 100mg Take 1 capsule by mouth 2 (two) times daily. [facility] morpHINE injection 4 mg 2020-07 08:30: 00 05-28 07:50 :00 No 4mg 4 mg, Slow IV Push, ONCE, 1 dose, On 05/28/21 at 0230, [facility] maalox:diph enhydrAMINE :lidocaine 2 % viscous 1:1:1 (FIRST-MOUT HWASH BLM) oral suspension 15 mL 2020-07 08:00: 00 05-28 07:04 :00 No 15mL 15 mL, Oral, ONCE, 1 dose, On 05/28/21 at 0200, Routine [facility] FENTanyl PF (SUBLIMAZE (PF)) injection 50 mcg 2020-07 07:00: 00 05-28 06:02 :00 No 50ug 50 mcg, Slow IV Push, ONCE, 1 dose, On 05/28/21 at 0100, STAT [facility] famotidine (PEPCID (PF)) injection 20 mg 2020-07 07:00: 00 05-28 06:01 :00 No 20mg 20 mg, Slow IV Push, ONCE, 1 dose, On 05/28/21 at 0100, [facility] famotidine 20 mg tablet 2020-07 00:00: 00 06-13 05:59 :00 No [id number] 20mg Take 1 tablet by mouth 2 (two) times daily for 15 days. [facility] escitalopra m oxalate (LEXAPRO) tablet 10 mg 2020-07 02:00: 00 Yes 10mg 10 mg, Oral, QHS, First dose on 04/08/21 at 2100, Until Discontinu ed, Routine [facility] aspirin 81 mg chewable tablet 2020-07 00:00: 00 05-10 04:59 :00 No [id number] 81mg Take 1 tablet by mouth daily for 30 days. [facility] traZODone (DESYREL) tablet 200 mg 2020-07 22:00: 00 Yes 200mg 200 mg, Oral, QPM, First dose on 04/08/21 at 1700, Until Discontinu ed [facility] topiramate (TOPAMAX) tablet 200 mg 2020-07 22:00: 00 Yes 200mg 200 mg, Oral, QPM, First dose on 04/08/21 at 1700, Until Discontinu ed, Routine
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 [facility] [place]-3-DHA -EPA-Fish Oil (FISH OIL) 1,000 mg (120 mg-180 mg) Cap 2020-07 17:45: 33 Yes 1000mg Take 1,000 mg by mouth daily. [facility] hydrOXYzine (VISTARIL) 50 mg capsule 2020-07 17:45: 33 Yes 50mg Take 50 mg by mouth every 4 (four) hours as needed for Itching. q 4-6 hours as needed [facility] losartan 50 mg tablet 2020-07 17:45: 33 Yes 50mg Take 50 mg by mouth daily. [facility] trazodone HCl (DESYREL ORAL) 2020-07 17:45: 33 Yes 200mg Take 200 mg by mouth every evening. [facility] escitalopra m oxalate (LEXAPRO) 5 mg tablet 2020-07 17:45: 33 Yes 10mg Take 10 mg by mouth at bedtime. [facility] Melatonin 1 mg tablet 2020-07 17:45: 33 Yes 10mg Take 10 mg by mouth every evening. [facility] topiramate (TOPAMAX) 200 mg tablet 2020-07 17:45: 33 Yes 200mg Take 200 mg by mouth every evening. [facility] bupropion HCl (WELLBUTRIN ORAL) 2020-07 17:45: 33 Yes 150mg Take 150 mg by mouth every morning. [facility] OLANZapine (ZYPREXA) 15 mg tablet 2020-07 17:45: 33 Yes 15mg Take 15 mg by mouth every evening. [facility] OLANZapine (ZYPREXA) 2.5 mg tablet 2020-07 17:45: 33 Yes 2.5mg Take 2.5 mg by mouth 2 (two) times daily. [facility] furosemide (LASIX) injection 20 mg 2020-07 14:30: 00 Yes 20mg 20 mg, Slow IV Push, Q12H, First dose on 04/08/21 at 0930, Until Discontinu ed, Routine [facility] losartan (COZAAR) tablet 50 mg 2020-07 14:00: 00 Yes 50mg 50 mg, Oral, DAILY, First dose on 04/08/21 at 0900, Until Discontinu ed, Routine [facility] buPROPion XL (WELLBUTRIN XL) tablet 150 mg 2020-07 14:00: 00 Yes 150mg 150 mg, Oral, DAILY, First dose on 04/08/21 at 0900, Until Discontinu ed [facility] aspirin chewable tablet 81 mg 2020-07 14:00: 00 Yes 81mg 81 mg, Oral, DAILY, First dose on 04/08/21 at 0900, Until Discontinu ed, Routine [facility] enoxaparin (LOVENOX) injection 40 mg 2020-07 14:00: 00 Yes 40mg 40 mg, Subcutaneo us, DAILY, First dose on 04/08/21 at 0900, Until Discontinu ed, Routine [facility] OLANZapine (ZyPREXA) tablet 2.5 mg 2020-07 13:00: 00 Yes 2.5mg 2.5 mg, Oral, BID, First dose on 04/08/21 at 0800, Until Discontinu ed, Routine [facility] methocarbam oL (ROBAXIN) tablet 750 mg 2020-07 13:00: 00 Yes 750mg 750 mg, Oral, TID, First dose on 04/08/21 at 0800, Until Discontinu ed, Routine [facility] LORazepam (ATIVAN) injection 0.5 mg 2020-07 04:07: 43 Yes .5mg 0.5 mg, Slow IV Push, PRN, 2 doses, Starting on Sat04/07/21 at 2307, Until Discontinu ed, Routine, Anxiety [facility] hydrOXYzine (ATARAX) tablet 50 mg 2020-07 02:51: 23 Yes 50mg 50 mg, Oral, Q4HPRN, Starting on Sat04/07/21 at 2151, Until Discontinu ed, Itching [facility] LORazepam (ATIVAN) tablet 0.5 mg 2020-07 02:05: 29 Yes .5mg 0.5 mg, Oral, PRN, 2 doses, Starting on Sat04/07/21 at 2105, Until Discontinu ed, Routine, Anxiety [facility] morpHINE injection 4 mg 2020-07 0-02 00:00: 00 04-07 22:58 :00 No 4mg 4 mg, Slow IV Push, ONCE, 1 dose, On Sat04/07/21 at 1900, STAT [facility] ondansetron (ZOFRAN (PF)) injection 4 mg 2020-07 0 00:00: 00 04-07 22:56 :00 No 4mg 4 mg, Slow IV Push, ONCE, 1 dose, On Sat04/07/21 at 1900, [place] [facility] morpHINE injection 4 mg 2020-07 23:58: 03 04-08 23:57 :03 No 4mg 4 mg, Slow IV Push, Q4HPRN, Starting on Sat04/07/21 at 1858, Until 04/08/21 at 1857, Routine, Pain (scale 7-10) [facility] HYDROcodone -acetaminop hen (NORCO 5) 5-325 mg tablet 1 tablet 2020-07 23:58: 00 04-09 23:57 :00 No 1{tbl} 1 tablet, Oral, Q6HPRN, Starting on Sat04/07/21 at 1858, Until 04/09/21 at 1857, Routine, Pain (scale 4-6) [facility] acetaminoph en (TYLENOL) tablet 650 mg 2020-07 23:57: 57 Yes 650mg 650 mg, Oral, Q6HPRN, Starting on Sat04/07/21 at 1857, Until Discontinu ed, Routine, Pain (scale 1-3) [facility] aspirin tablet 325 mg 2020-07 0 23:00: 00 04-07 21:56 :00 No 325mg 325 mg, Oral, ONCE, 1 dose, On Sat04/07/21 at 1800, STAT [facility] nitroglycer in (NITROSTAT) sublingual tablet 0.4 mg 2020-07 0 21:51: 01 04-07 22:46 :00 No .4mg 0.4 mg, Sublingual , Q5MIN PRN, 3 doses, Starting on Sat04/07/21 at 1651, Until Discontinu ed, ROSELYN, Chest pain [facility] fluconazole (DIFLUCAN) tablet 150 mg 01-12 14:00: 00 Yes 150mg 150 mg, Oral, DAILY, First dose on [place] 01/12/21 at 0900, Until Discontinu ed, ROSELYN
Re ason for Anti-Infec tive: Empiric Therapy for Suspected Infection< br>Empiric Therapy Site: HEENT
D uration of therapy: 72 hours [facility] cefTRIAXone (ROCEPHIN) 1,000 mg in NaCl 0.9% (NS) 50 mL MINI-BAG 01-12 10:15: 00 01-12 09:49 :00 No 1000mg 1,000 mg, IV Piggyback, ONCE, 1 dose, [place] 01/12/21 at 0515, 50 mL
Reas on for Anti-Infec tive: Empiric Therapy for Suspected Infection< br>Empiric Therapy Site: Urine
D uration of therapy: 72 hours [facility] hydrOXYzine (ATARAX) tablet 25 mg 01-12 10:15: 00 01-12 09:18 :00 No 25mg 25 mg, Oral, ONCE, 1 dose, [place] 01/12/21 at 0515, RO[place] [facility] HYDROcodone -acetaminop hen (NORCO) 10-325 mg tablet 1 tablet 01-12 10:15: 00 01-12 09:18 :00 No 1{tbl} 1 tablet, Oral, ONCE, 1 dose, [place] 01/12/21 at 0515, Routine [facility] maalox:diph enhydrAMINE :lidocaine2 %viscous 1:1:1: suspension (COMPOUNDED ) 01-12 09:30: 00 01-12 08:25 :00 No 15mL 15 mL, Oral, ONCE, 1 dose, [place] 01/12/21 at 0430, Routine [facility] cephALEXin (KEFLEX) 500 mg capsule 7-08 00:00: 00 04-07 00:00 :00 No [id number] 500mg Take 1 capsule by mouth 3 (three) times daily. [facility] HYDROcodone -acetaminop hen (NORCO 5) 5-325 mg tablet 1 tablet 12-11 02:00: 00 12-11 01:29 :00 No 1{tbl} 1 tablet, Oral, ONCE, 1 dose, 12/10/20 at 2100, ROSELYN [facility] LORazepam (ATIVAN) injection 1 mg 12-11 00:30: 00 12-10 23:36 :00 No 1mg 1 mg, Slow IV Push, ONCE, 1 dose, 12/10/20 at 1930, STAT [facility] ketorolac (TORADOL) injection 30 mg 12-11 00:30: 00 12-10 23:36 :00 No 30mg 30 mg, Slow IV Push, ONCE, 1 dose, 12/10/20 at 1930, ROSELYN
Fa culty member approving Restricted medication : EMERGENCY ROOM, [facility] ondansetron (ZOFRAN (PF)) injection 4 mg 12-10 23:45: 00 12-10 22:46 :00 No 4mg 4 mg, Slow IV Push, ONCE, 1 dose, 12/10/20 at 1845, ROSELYN [facility] NaCl 0.9% (NS) bolus infusion 2,000 mL 12-10 22:45: 00 12-11 01:29 :00 No 2000mL at 999 mL/hr, 2,000 mL, IV Infusion, ONCE, 1 dose, 12/10/20 at 1745, ROSELYN [facility] proMETHazin e 25 mg tablet 12-10 00:00: 00 04-07 00:00 :00 No [id number] 12.5mg Take 0.5 tablets by mouth every 6 (six) hours as needed for N/V unresponsi ve to Ondansetro n. [facility] morpHINE injection 4 mg 12-04 22:30: 00 12-04 21:37 :00 No 4mg 4 mg, Slow IV Push, ONCE, 1 dose, 12/04/20 at 1730, STAT [facility] losartan 50 mg tablet 12-04 22:03: 53 Yes 50mg Take 50 mg by mouth daily. [facility] LORazepam (ATIVAN) tablet 1 mg 12-04 21:45: 00 12-04 20:44 :00 No 1mg 1 mg, Oral, ONCE, 1 dose, 12/04/20 at 1645, [facility] ondansetron (ZOFRAN (PF)) injection 4 mg 12-04 21:15: 00 12-04 20:22 :00 No 4mg 4 mg, Slow IV Push, ONCE, 1 dose, 12/04/20 at 1615, [facility] morpHINE injection 4 mg 12-04 21:15: 00 12-04 20:21 :00 No 4mg 4 mg, Slow IV Push, ONCE, 1 dose, 12/04/20 at 1615, STAT [facility] ALPRAZolam (XANAX) 2 mg tablet 11-04 04:24: 19 11-03 00:00 :00 No 2mg Take 2 mg by mouth at bedtime. [facility] LORazepam (ATIVAN) injection 1 mg 11-04 04:00: 00 11-04 02:57 :00 No 1mg 1 mg, Slow IV Push, ONCE, 1 dose, [place] 11/03/20 at 2300, STAT [facility] LORazepam (ATIVAN) tablet 1 mg 11-04 04:00: 00 11-04 02:57 :00 No 1mg 1 mg, Oral, ONCE, 1 dose, [place] 11/03/20 at 2300, [facility] clonazePAM 0.5 mg tablet 11-01 00:00: 00 04-07 00:00 :00 No .5mg Take 0.5 mg by mouth. [facility] SERTraline 100 mg tablet 11-01 00:00: 00 04-07 00:00 :00 No 100mg Take 100 mg by mouth. [facility] busPIRone 10 mg tablet 10-18 00:00: 00 04-07 00:00 :00 No 10mg Take 10 mg by mouth. [facility] Ciprofloxac in/Dexameth asone (Ciprodex 0.3%-0.1% Otic*) 1 Ea SUSP Ciprofloxac in/Dexameth asone (Ciprodex 0.3%-0.1% Otic*) 1 Ea SUSP 09-19 13:53: 00 09-30 00:00 :00 No 3[facility]drp[facility] 800 mg 09-17 16:55: 00 09-17 16:57 :00 No 800mg 800 mg, Oral, ONCE, 1 dose, 09/17/20 at 1100, ROSELYN [facility] benzonatate 100 mg capsule 09-17 00:00: 00 04-07 00:00 :00 No [id number] 100mg Take 1 capsule by mouth 3 (three) times daily as needed for Cough. [facility] amoxicillin 500 mg capsule 09-17 00:00: 00 09-28 04:59 :00 No [id number] 500mg Take 1 capsule by mouth 3 (three) times daily for 10 days. [facility] HYDROcodone -acetaminop hen (NORCO) 10-325 mg tablet 1 tablet 09-07 07:45: 00 09-07 07:09 :00 No 1{tbl} 1 tablet, Oral, ONCE, 1 dose, 09/07/20 at 0145, Routine [facility] ondansetron (ZOFRAN-ODT ) disintegrat ing tablet 4 mg 09-07 07:15: 00 09-07 07:15 :00 No 4mg 4 mg, Oral, ONCE, 1 dose, 09/07/20 at 0130, Routine [facility] ibuprofen 800 mg tablet 09-07 00:00: 00 Yes [id number] 800mg Take 1 tablet by mouth every 8 (eight) hours as needed for Pain (scale 4-6). [facility] ketorolac (TORADOL) injection 30 mg 08-28 10:45: 00 08-28 09:48 :00 No 30mg 30 mg, Slow IV Push, ONCE, 1 dose, 08/28/20 at 0445, Routine
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 : BOB GARCIA [facility] ondansetron (ZOFRAN (PF)) injection 4 mg 08-28 10:00: 00 08-28 09:06 :00 No 4mg 4 mg, Slow IV Push, ONCE, 1 dose, 08/28/20 at 0400, ROSELYN [facility] FENTanyl PF (SUBLIMAZE (PF)) injection 50 mcg 08-28 10:00: 00 08-28 09:07 :00 No 50ug 50 mcg, Slow IV Push, ONCE, 1 dose, 08/28/20 at 0400, Routine [facility] maalox:diph enhydrAMINE :lidocaine 2 % viscous 1:1:1 (FIRST-MOUT HWASH BLM) oral suspension 15 mL 08-28 10:00: 00 08-28 09:07 :00 No 15mL 15 mL, Oral, ONCE, 1 dose, 08/28/20 at 0400, Routine [facility] iohexol (OMNIPAQUE 350 BULK-100 mL) injection 120 mL 08-28 09:30: 00 08-28 09:11 :00 No 120mL 120 mL, Intravenou s, ONCE, 1 dose, 08/28/20 at 0330, Routine [facility] dicyclomine 20 mg tablet 08-28 00:00: 00 04-07 00:00 :00 No [id number] 20mg Take 1 tablet by mouth every 6 (six) hours as needed for Abdominal pain. [facility] ondansetron (ZOFRAN) 4 mg tablet 08-28 00:00: 00 09-17 00:00 :00 No [id number] 4mg Take 1 tablet by mouth every 8 (eight) hours as needed for Nausea and Vomiting (N/V). [facility] FENTanyl PF (SUBLIMAZE (PF)) injection 25 mcg 08-14 19:00: 08-14 18:09 :00 No 25ug 25 mcg, Slow IV Push, ONCE, 1 dose, 08/14/20 at 1300, STAT [facility] ondansetron (ZOFRAN (PF)) injection 4 mg 08-14 19:00: 00 08-14 18:10 :00 No 4mg 4 mg, Slow IV Push, ONCE, 1 dose, 08/14/20 at 1300, ROSELYN [facility] ketorolac (TORADOL) injection 15 mg 08-14 19:00: 08-14 18:09 :00 No 15mg 15 mg, Slow IV Push, ONCE, 1 dose, 08/14/20 at 1300, ROSELYN
Fa culty member approving Restricted medication : BEST TAYLOR [facility] piperacilli n-tazobacta m (ZOSYN) 3.375 g in NaCl 0.9% (NS) 100 mL MINI-BAG 08-14 19:00: 08-14 18:38 :00 No 3.375g 3.375 g, IV Piggyback, ONCE, 1 dose, 08/14/20 at 1300, 100 mL
Reas on for Anti-Infec tive: Documented Infection< br>Documen kaushik Infection Site: Urine
D uration of Therapy: Other (see Comments) [facility] NaCl 0.9% (NS) bolus infusion 1,000 mL 08-14 19:00: 00 08-14 19:00 :00 No 1000mL at 999 mL/hr, 1,000 mL, IV Infusion, ONCE, 1 dose, 08/14/20 at 1300, STAT [facility] guaiFENesin 100 mg/5 mL solution 08-14 00:00: 04-07 00:00 :00 No [id number] 100mg Take 5 mL by mouth every 4 (four) hours. [facility] ondansetron 4 mg disintegrat ing tablet 08-14 00:00: 09-17 00:00 :00 No [id number] 4mg Take 1 tablet by mouth every 8 (eight) hours as needed for Nausea and Vomiting (N/V). [facility] ibuprofen 600 mg tablet 08-14 00:00: 09-17 00:00 :00 No [id number] 600mg Take 1 tablet by mouth every 6 (six) hours as needed for Pain (scale 4-6). [facility] amoxicillin -clavulanat e 875-125 mg per tablet 08-14 00:00: 08-25 05:59 :00 No [id number] 1{tbl} Take 1 tablet by mouth 2 (two) times daily for 10 days. [facility] fluconazole (DIFLUCAN) tablet 150 mg 08-11 15:00: 00 Yes 150mg 150 mg, Oral, DAILY, First dose on [place] 08/11/20 at 0900, Until Discontinu ed, ROSELYN
Re ason for Anti-Infec tive: Documented Infection< br>Documen kaushik Infection Site: Urine
D uration of Therapy: Other (see Comments) [facility] HYDROcodone -acetaminop hen (NORCO) 10-325 mg tablet 1 tablet 08-11 05:30: 00 08-11 05:08 :00 No 1{tbl} 1 tablet, Oral, ONCE NOW, 1 dose, Sat08/10/20 at 2330, Routine [facility] FENTanyl PF (SUBLIMAZE (PF)) injection 25 mcg 08-11 04:30: 00 08-11 03:19 :00 No 25ug 25 mcg, Slow IV Push, ONCE, 1 dose, 08/10/20 at 2230, STAT [facility] ondansetron (ZOFRAN (PF)) injection 4 mg 08-11 04:15: 00 08-11 03:19 :00 No 4mg 4 mg, Slow IV Push, ONCE, 1 dose, 08/10/20 at 2215, ROSELYN [facility] NaCl 0.9% (NS) bolus infusion 1,000 mL 08-11 01:45: 00 08-11 03:45 :00 No 1000mL at 999 mL/hr, 1,000 mL, IV Infusion, ONCE, 1 dose, 08/10/20 at 1945, STAT [facility] ketorolac (TORADOL) injection 30 mg 08-11 01:45: 00 08-11 02:31 :00 No 30mg 30 mg, Slow IV Push, ONCE, 1 dose, 08/10/20 at 1945, ROSELYN
Fa culty member approving Restricted medication : BEST TAYLOR [facility] traMADoL (ULTRAM) 50 mg tablet 08-10 00:00: 00 09-17 00:00 :00 No [id number] 50mg Take 1 tablet by mouth every 6 (six) hours as needed for Pain (scale 7-10). Indication s: acute pain [facility] ibuprofen 800 mg tablet 08-07 00:00: 00 09-17 00:00 :00 No [id number] 800mg Take 1 tablet by mouth every 8 (eight) hours. [facility] amoxicillin 500 mg capsule 08-07 00:00: 00 09-17 00:00 :00 No [id number] 500mg Take 1 capsule by mouth 3 (three) times daily. [facility] traMADoL 50 mg tablet 08-07 00:00: 00 09-17 00:00 :00 No [id number] 50mg Take 1 tablet by mouth every 6 (six) hours as needed for Pain (scale 4-6). Indication s: acute pain [facility] LORazepam (ATIVAN) tablet 1 mg 2019-07 03:15: 00 07-01 02:21 :00 No 1mg 1 mg, Oral, ONCE, 1 dose, [place] 06/30/20 at 211, ROSELYN [facility] FENTanyl PF (SUBLIMAZE (PF)) injection 50 mcg 2019-07 02:30: 00 07-01 01:39 :00 No 50ug 50 mcg, Slow IV Push, ONCE, 1 dose, [place] 06/30/20 at 2030, Routine [facility] ondansetron (ZOFRAN-ODT ) disintegrat ing tablet 4 mg 2019-07 01:15: 00 07-01 00:52 :00 No 4mg 4 mg, Oral, ONCE, 1 dose, [place] 06/30/20 at 191, Routine [facility] ketorolac (TORADOL) injection 30 mg 2019-07 01:15: 00 07-01 00:52 :00 No 30mg 30 mg, Slow IV Push, ONCE, 1 dose, [place] 06/30/20 at 191, [facility]N
[facility] Restricted medication : ABDIAS ROBERTSON [facility] albuterol 90 mcg/actuati on inhaler 2019-07 00:00: 00 04-07 00:00 :00 No [id number] 2{puff} Inhale 2 Puffs every 4 (four) hours as needed for Wheezing or Shortness of Breath. [facility] hydrOXYzine 25 mg tablet 2019-07 00:00: 00 09-17 00:00 :00 No [id number] 25mg Take 1 tablet by mouth every 6 (six) hours as needed for Anxiety. [facility] naproxen sodium (ANAPROX DS) 550 mg tablet 2019-07 00:00: 00 04-07 00:00 :00 No [id number] 550mg Take 1 tablet by mouth 2 (two) times daily with meals. [facility] methylPREDN ISolone (MEDROL, HEENA,) 4 mg tablets 2019-07 00:00: 00 09-17 00:00 :00 No [id number] Take by mouth SEE-INSTRU CTIONS. follow package directions [facility] methocarbam oL 500 mg tablet 2019-07 00:00: 00 07-04 05:59 :00 No [id number] 500mg Take 1 tablet by mouth 3 (three) times daily for 5 days. [facility] proMETHazin e (PHENERGAN) tablet 25 mg 2019-07 04:45: 00 06-13 03:37 :00 No 25mg 25 mg, Oral, ONCE, 1 dose, 06/12/20 at 2245, [facility] ondansetron (ZOFRAN (PF)) injection 4 mg 2019-07 03:00: 00 06-13 01:59 :00 No 4mg 4 mg, Slow IV Push, ONCE, 1 dose, 06/12/20 at 2100, [facility] ketorolac (TORADOL) injection 15 mg 2019-07 03:00: 00 06-13 01:58 :00 No 15mg 15 mg, Intramuscu lar, ONCE, 1 dose, 06/12/20 at 2100, ROSELYN
Fa culty member approving Restricted medication : LEEANNE WISE [facility] morpHINE injection 4 mg 2019-07 01:30: 00 06-13 00:41 :00 No 4mg 4 mg, Slow IV Push, ONCE, 1 dose, 06/12/20 at 1930, STAT [facility] ondansetron (ZOFRAN (PF)) injection 4 mg 2019-07 00:45: 00 06-13 00:41 :00 No 4mg 4 mg, Slow IV Push, ONCE, 1 dose, 06/12/20 at 1845, [facility] NaCl 0.9% (NS) bolus infusion 1,000 mL 2019-07 23:45: 00 06-13 03:54 :00 No 1000mL at 999 mL/hr, 1,000 mL, IV Infusion, ONCE, 1 dose, 06/12/20 at 1745, ROSELYN [facility] dicyclomine 20 mg tablet 2019-07 00:00: 00 04-07 00:00 :00 No [id number] 20mg Take 1 tablet by mouth 4 (four) times daily as needed for Abdominal pain. [facility] proMETHazin e 25 mg tablet 2019-07 00:00: 09-17 00:00 :00 No [id number] 25mg Take 1 tablet by mouth every 6 (six) hours as needed for Nausea and Vomiting (N/V). [facility] famotidine 20 mg tablet 2019-07 00:00: 00 06-27 05:59 :00 No [id number] 20mg Take 1 tablet by mouth at bedtime for 14 days. [facility] haloperidol lactate (HALDOL) injection 2.5 mg 2019-07 01:00: 00 05-16 23:51 :00 No 2.5mg 2.5 mg, Intravenou s, ONCE, 1 dose, 05/16/20 at 1900, STAT [facility] NaCl 0.9% (NS) bolus infusion 1,000 mL 2019-07 23:45: 00 05-17 00:54 :00 No 1000mL at 999 mL/hr, 1,000 mL, IV Infusion, ONCE, 1 dose, 05/16/20 at 1745, ROSELYN [facility] proMETHazin e (PHENERGAN) 25 mg suppository 2019-07 00:00: 00 Yes [id number] 25mg Insert 1 Suppositor y into rectum every 4 (four) hours as needed for Nausea and Vomiting (N/V). [facility] ondansetron (ZOFRAN (PF)) injection 4 mg 2019-07 07:30: 00 05-15 06:26 :00 No 4mg 4 mg, Slow IV Push, ONCE, 1 dose, 05/15/20 at 0130, ROSELYN [facility] iohexol (OMNIPAQUE 350 BULK-100 mL) injection 120 mL 2019-07 07:00: 00 05-15 06:52 :00 No 120mL 120 mL, Intravenou s, ONCE, 1 dose, [place] 05/15/20 at 0100, Routine [facility] ondansetron (ZOFRAN (PF)) injection 4 mg 2019-07 06:30: 00 05-15 05:52 :00 No 4mg 4 mg, Slow IV Push, ONCE, 1 dose, [place] 05/15/20 at 0030, ROSELYN [facility] ALPRAZolam (XANAX) 2 mg tablet 2019-07 05:30: 59 Yes 2mg Take 2 mg by mouth at bedtime. [facility] zolpidem 5 mg tablet 12-20 00:00: 00 04-07 00:00 :00 No 5mg Take 5 mg by mouth. [facility] Immunizations Ordered Immunization Name Filled Immunization Name Date Status Comments Source Covid-19 Vaccine Moderna (Spikevax), Mrna-lnp, [employer]ack[employer], Pf Unknown Completed [facility] External Covid-19 Vaccine Moderna (Spikevax), Mrna-lnp, Zackery [employer], Pf Unknown Completed [facility] - External Covid-19 Vaccine Moderna (Spikevax), Mrna-lnp, Zackery Protein, Pf Unknown Completed [facility] Covid-19 Vaccine Moderna (Spikevax), Mrna-lnp, Zackery Protein, Pf Unknown Completed [facility] - External Covid-19 Vaccine Moderna (Spikevax), Mrna-lnp, Zackery Protein, Pf Unknown Completed [facility] - External Covid-19 Vaccine Moderna (Spikevax), Mrna-lnp, Zackery Protein, Pf Unknown Completed [facility] - External Covid-19 Vaccine Moderna (Spikevax), Mrna-lnp, Zackery Protein, Pf Unknown Completed [facility] - External Covid-19 Vaccine Moderna (Spikevax), Mrna-lnp, Zackery Protein, Pf Unknown Completed [facility] - External Covid-19 Vaccine Moderna (Spikevax), Mrna-lnp, Zackery Protein, Pf Unknown Completed [facility] - External Covid-19 Vaccine Moderna (Spikevax), Mrna-lnp, Zackery Protein, Pf Unknown Completed [facility] - External Covid-19 Vaccine Moderna (Spikevax), Mrna-lnp, Zackery Protein, Pf [facility] Moderna (Spikevax), Mrna-lnp, Zackery Protein, Pf Unknown Completed [facility] Sey[facility] - External Covid-19 Vaccine Moderna (Spikevax), Mrna-lnp, Zackery Protein, Pf Unknown Completed [facility] - External Covid-19 Vaccine Moderna (Spikevax), Mrna-lnp, Zackery Protein, Pf Unknown Completed [facility] - External Vital Signs Vital Name Observation Time Observation Value Comments S ource Systolic blood pressure 2025-03-25 22:21:00 162 mm[Hg] [facility] Diastolic blood pressure 2025-03-25 22:21:00 110 mm[Hg] [facility] Heart rate 2025-03-25 22:21:00 120 /min [facility] Body temperature 2025-03-25 22:21:00 37.39 Latanya [facility] Respiratory rate 2025-03-25 22:21:00 18 /min [facility] Body height 2025-03-25 22:21:00 157.5 cm [facility] Body weight 2025-03-25 22:21:00 104.327 kg [facility] BMI 2025-03-25 22:21:00 42.07 kg/m2 [facility] Oxygen saturation in Arterial blood by Pulse oximetry 2025-03-25 22:21:00 98 /min [facility] Systolic blood pressure 2025-03-08 15:46:00 132 mm[Hg] [facility] Diastolic blood pressure 2025-03-08 15:46:00 70 mm[Hg] [facility] Heart rate 2025-03-08 15:46:00 72 /min [facility] Body temperature 2025-03-08 15:46:00 36.67 Latanya [facility] Respiratory rate 2025-03-08 15:46:00 18 /min [facility] Oxygen saturation in Arterial blood by Pulse oximetry 2025-03-08 15:46:00 95 /min [facility] Body weight 2025-03-08 08:08:00 108.5 kg [facility] BMI 2025-03-08 08:08:00 43.75 kg/m2 [facility] Body height 2025-03-08 00:55:00 157.5 cm [facility] Height 2025-03-05 18:20:00 157.332117 cm [facility] Weight 2025-03-05 18:20:00 104.033022 kg [facility] BMI (Body Mass Index) 2025-03-05 18:20:00 42.1 kg/m2 [facility] Systolic blood pressure 2025-03-05 01:00:00 120 mm[Hg] [facility] Diastolic blood pressure 2025-03-05 01:00:00 92 mm[Hg] [facility] Heart rate 2025-03-05 01:00:00 81 /min [facility] Respiratory rate 2025-03-05 01:00:00 17 /min [facility] Oxygen saturation in Arterial blood by Pulse oximetry 2025-03-05 01:00:00 96 /min [facility] Body temperature 2025-03-04 21:32:00 36.72 Latanya [facility] Body height 2025-03-04 21:32:00 157.5 cm [facility] Body weight 2025-03-04 21:32:00 108.863 kg [facility] BMI 2025-03-04 21:32:00 43.90 kg/m2 [facility] Systolic blood pressure 2025-01-07 20:01:00 126 mm[Hg] [facility] - External Diastolic blood pressure 2025-01-07 20:01:00 82 mm[Hg] [facility] - External Heart rate 2025-01-07 20:01:00 86 /min [facility] - External Body temperature 2025-01-07 20:01:00 36.61 Latanya [facility] - External Respiratory rate 2025-01-07 20:01:00 18 /min [facility] - External Body height 2025-01-07 20:01:00 157.5 cm [facility] - External Body weight 2025-01-07 20:01:00 105.688 kg [facility] - External BMI 2025-01-07 20:01:00 42.62 kg/m2 [facility] - External Oxygen saturation in Arterial blood by Pulse oximetry 2025-01-07 20:01:00 100 /min [facility] - External Systolic blood pressure 2024-12-16 02:02:00 158 mm[Hg] [facility] Diastolic blood pressure 2024-12-16 02:02:00 91 mm[Hg] [facility] Heart rate 2024-12-16 02:02:00 102 /min [facility] Body temperature 2024-12-16 02:02:00 37 Latanya [facility] Respiratory rate 2024-12-16 02:02:00 17 /min [facility] Body height 2024-12-16 02:02:00 157.5 cm [facility] Body weight 2024-12-16 02:02:00 108.863 kg [facility] BMI 2024-12-16 02:02:00 43.90 kg/m2 [facility] Oxygen saturation in Arterial blood by Pulse oximetry 2024-12-16 02:02:00 100 /min [facility] Systolic blood pressure 2024-12-14 21:48:00 136 mm[Hg] [facility] Diastolic blood pressure 2024-12-14 21:48:00 74 mm[Hg] [facility] Heart rate 2024-12-14 21:48:00 88 /min [facility] Body temperature 2024-12-14 21:48:00 36.67 Latanya [facility] Respiratory rate 2024-12-14 21:48:00 16 /min [facility] Oxygen saturation in Arterial blood by Pulse oximetry 2024-12-14 21:48:00 98 /min [facility] Body height 2024-12-14 18:27:00 157.5 cm [facility] Body weight 2024-12-14 18:27:00 108.863 kg [facility] BMI 2024-12-14 18:27:00 43.90 kg/m2 [facility] Height 2024-12-10 18:25:00 157.965226 cm [facility] Weight 2024-12-10 18:25:00 108.430187 kg [facility] BMI (Body Mass Index) 2024-12-10 18:25:00 43.9 kg/m2 [facility] Systolic blood pressure 2024-12-09 02:28:00 129 mm[Hg] [facility] Diastolic blood pressure 2024-12-09 02:28:00 74 mm[Hg] [facility] Heart rate 2024-12-09 02:28:00 88 /min [facility] Respiratory rate 2024-12-09 02:28:00 25 /min [facility] Oxygen saturation in Arterial blood by Pulse oximetry 2024-12-09 02:28:00 95 /min [facility] Body temperature 2024-12-09 00:53:00 36.61 Latanya [facility] Body height 2024-12-09 00:53:00 157.5 cm [facility] Body weight 2024-12-09 00:53:00 108.863 kg [facility] BMI 2024-12-09 00:53:00 43.90 kg/m2 [facility] Systolic blood pressure 2024-11-27 16:12:00 99 mm[Hg] [facility] Diastolic blood pressure 2024-11-27 16:12:00 54 mm[Hg] [facility] Heart rate 2024-11-27 16:12:00 60 /min [facility] Body temperature 2024-11-27 16:12:00 36.28 Latanya [facility] Respiratory rate 2024-11-27 16:12:00 18 /min [facility] Oxygen saturation in Arterial blood by Pulse oximetry 2024-11-27 16:12:00 96 /min [facility] Body height 2024-11-27 03:49:00 157.5 cm [facility] Body weight 2024-11-27 03:49:00 108.41 kg [facility] BMI 2024-11-27 03:49:00 43.71 kg/m2 [facility] Height 2024-11-15 13:18:00 157.137102 cm [facility] Weight 2024-11-15 13:18:00 108.895665 kg [facility] BMI (Body Mass Index) 2024-11-15 13:18:00 43.9 kg/m2 [facility] Systolic blood pressure 2024-11-15 01:43:00 165 mm[Hg] [facility] Diastolic blood pressure 2024-11-15 01:43:00 115 mm[Hg] [facility] Heart rate 2024-11-15 01:43:00 87 /min [facility] Body temperature 2024-11-15 01:43:00 36.72 Latanya [facility] Respiratory rate 2024-11-15 01:43:00 17 /min [facility] Body height 2024-11-15 01:43:00 157.5 cm [facility] Body weight 2024-11-15 01:43:00 108.41 kg [facility] BMI 2024-11-15 01:43:00 43.71 kg/m2 [facility] Oxygen saturation in Arterial blood by Pulse oximetry 2024-11-15 01:43:00 98 /min [facility] Body temperature 2024-11-11 05:30:00 37.17 Latanya [facility] Systolic blood pressure 2024-11-11 05:02:00 141 mm[Hg] [facility] Diastolic blood pressure 2024-11-11 05:02:00 100 mm[Hg] [facility] Heart rate 2024-11-11 05:02:00 76 /min [facility] Respiratory rate 2024-11-11 05:02:00 21 /min [facility] Oxygen saturation in Arterial blood by Pulse oximetry 2024-11-11 05:02:00 96 /min [facility] Body height 2024-11-11 00:53:00 157.5 cm [facility] Body weight 2024-11-11 00:53:00 108.41 kg [facility] BMI 2024-11-11 00:53:00 43.71 kg/m2 [facility] Systolic blood pressure 2024-11-04 19:00:00 134 mm[Hg] [facility] Diastolic blood pressure 2024-11-04 19:00:00 85 mm[Hg] [facility] Heart rate 2024-11-04 19:00:00 86 /min [facility] Body temperature 2024-11-04 19:00:00 36.94 Latanya [facility] Oxygen saturation in Arterial blood by Pulse oximetry 2024-11-04 19:00:00 98 /min [facility] Respiratory rate 2024-11-04 08:24:00 16 /min [facility] Body height 2024-11-03 17:28:00 157.5 cm [facility] Body weight 2024-11-03 17:28:00 108.7 kg [facility] BMI 2024-11-03 17:28:00 43.83 kg/m2 [facility] Systolic blood pressure 2024-11-03 21:17:00 123 mm[Hg] [facility] Diastolic blood pressure 2024-11-03 21:17:00 74 mm[Hg] [facility] Heart rate 2024-11-03 21:17:00 72 /min [facility] Body temperature 2024-11-03 21:17:00 37.11 Latanya [facility] Respiratory rate 2024-11-03 21:17:00 18 /min [facility] Oxygen saturation in Arterial blood by Pulse oximetry 2024-11-03 21:17:00 98 /min [facility] Body height 2024-11-03 17:28:00 157.5 cm [facility] Body weight 2024-11-03 17:28:00 108.7 kg [facility] BMI 2024-11-03 17:28:00 43.83 kg/m2 [facility] Heart rate 2024-10-24 04:50:00 77 /min [facility] Body temperature 2024-10-24 04:50:00 36.83 Latanya [facility] Respiratory rate 2024-10-24 04:50:00 21 /min [facility] Oxygen saturation in Arterial blood by Pulse oximetry 2024-10-24 04:50:00 96 /min [facility] Systolic blood pressure 2024-10-24 04:15:00 146 mm[Hg] [facility] Diastolic blood pressure 2024-10-24 04:15:00 90 mm[Hg] [facility] Body height 2024-10-24 01:16:00 157.5 cm [facility] Body weight 2024-10-24 01:16:00 108.863 kg [facility] BMI 2024-10-24 01:16:00 43.90 kg/m2 [facility] Systolic blood pressure 2024-10-23 15:10:00 132 mm[Hg] Kellee Seybold - External Diastolic blood pressure 2024-10-23 15:10:00 82 mm[Hg] Kellee Seybold - External Heart rate 2024-10-23 15:10:00 79 /min Kellee Seybold - External Body temperature 2024-10-23 15:10:00 36.72 [...] (Body Mass Index) 2024-10-14 05:00:00 45.0 kg/m2 [facility] Weight 2024-10-14 03:02:00 112.300 kg [facility] Height 2024-10-13 18:55:00 157.305627 cm [facility] Systolic blood pressure 2024-10-13 07:35:00 135 mm[Hg] [facility] Diastolic blood pressure 2024-10-13 07:35:00 87 mm[Hg] [facility] Heart rate 2024-10-13 07:35:00 86 /min [facility] Body temperature 2024-10-13 07:35:00 36.72 Latanya [facility] Respiratory rate 2024-10-13 07:35:00 19 /min [facility] Oxygen saturation in Arterial blood by Pulse oximetry 2024-10-13 07:35:00 98 /min [facility] Body height 2024-10-13 03:27:00 157.5 cm [facility] Body weight 2024-10-13 03:27:00 104.327 kg [facility] BMI 2024-10-13 03:27:00 42.07 kg/m2 [facility] Body temperature 2024-07-19 07:17:00 36.56 Latanya [facility] Heart rate 2024-07-19 07:14:00 74 /min [facility] Respiratory rate 2024-07-19 07:14:00 27 /min [facility] Oxygen saturation in Arterial blood by Pulse oximetry 2024-07-19 07:14:00 100 /min [facility] Systolic blood pressure 2024-07-19 07:00:00 123 mm[Hg] [facility] Diastolic blood pressure 2024-07-19 07:00:00 93 mm[Hg] [facility] Body height 2024-07-19 04:44:00 157.5 cm [facility] Body weight 2024-07-19 04:44:00 104.327 kg [facility] BMI 2024-07-19 04:44:00 42.07 kg/m2 [facility] Systolic blood pressure 2024-07-04 07:00:00 132 mm[Hg] [facility] Diastolic blood pressure 2024-07-04 07:00:00 98 mm[Hg] [facility] Heart rate 2024-07-04 07:00:00 85 /min [facility] Body temperature 2024-07-04 07:00:00 36.78 Latanya [facility] Respiratory rate 2024-07-04 07:00:00 18 /min [facility] Oxygen saturation in Arterial blood by Pulse oximetry 2024-07-04 07:00:00 94 /min [facility] Body height 2024-07-04 01:53:00 157.5 cm [facility] Body weight 2024-07-04 01:53:00 105.688 kg [facility] BMI 2024-07-04 01:53:00 42.62 kg/m2 [facility] Systolic blood pressure 2024-06-21 08:00:00 180 mm[Hg] [facility] Diastolic blood pressure 2024-06-21 08:00:00 107 mm[Hg] [facility] Heart rate 2024-06-21 08:00:00 89 /min [facility] Body temperature 2024-06-21 08:00:00 37.11 Latanya [facility] Respiratory rate 2024-06-21 08:00:00 22 /min [facility] Body height 2024-06-21 08:00:00 157.5 cm [facility] Body weight 2024-06-21 08:00:00 108.41 kg [facility] BMI 2024-06-21 08:00:00 43.71 kg/m2 [facility] Oxygen saturation in Arterial blood by Pulse oximetry 2024-06-21 08:00:00 100 /min [facility] Heart rate 2024-06-15 06:22:00 87 /min [facility] Body temperature 2024-06-15 06:22:00 37.11 Latanya [facility] Oxygen saturation in Arterial blood by Pulse oximetry 2024-06-15 06:22:00 96 /min [facility] Systolic blood pressure 2024-06-15 06:00:00 137 mm[Hg] [facility] Diastolic blood pressure 2024-06-15 06:00:00 85 mm[Hg] [facility] Respiratory rate 2024-06-15 06:00:00 15 /min [facility] Body height 2024-06-15 03:23:00 157.5 cm [facility] Body weight 2024-06-15 03:23:00 109.997 kg [facility] BMI 2024-06-15 03:23:00 44.35 kg/m2 [facility] Body temperature 2024-06-07 08:35:48 36.89 Latanya [facility] Systolic blood pressure 2024-06-07 08:00:00 129 mm[Hg] [facility] Diastolic blood pressure 2024-06-07 08:00:00 108 mm[Hg] [facility] Heart rate 2024-06-07 08:00:00 69 /min [facility] Respiratory rate 2024-06-07 08:00:00 24 /min [facility] Oxygen saturation in Arterial blood by Pulse oximetry 2024-06-07 08:00:00 97 /min [facility] Body height 2024-06-07 04:02:00 157.5 cm [facility] Body weight 2024-06-07 04:02:00 105.688 kg [facility] BMI 2024-06-07 04:02:00 42.62 kg/m2 [facility] Systolic blood pressure 2024-05-19 19:32:00 130 mm[Hg] [facility] Diastolic blood pressure 2024-05-19 19:32:00 74 mm[Hg] [facility] Heart rate 2024-05-19 19:32:00 84 /min [facility] Respiratory rate 2024-05-19 19:32:00 18 /min [facility] Oxygen saturation in Arterial blood by Pulse oximetry 2024-05-19 19:32:00 99 /min [facility] Body temperature 2024-05-19 17:44:00 36.83 Latanya [facility] Body height 2024-05-19 17:44:00 157.5 cm [facility] Body weight 2024-05-19 17:44:00 108.863 kg [facility] BMI 2024-05-19 17:44:00 43.90 kg/m2 [facility] Systolic blood pressure 2024-05-18 16:21:00 126 mm[Hg] Kellee Seybold - External Diastolic blood pressure 2024-05-18 16:21:00 78 mm[Hg] Klelee Ariasybold - External Heart rate 2024-05-18 16:21:00 [...] External Heart rate 2024-05-18 04:14:00 111 /min [facility] Body temperature 2024-05-18 04:14:00 37 Latanya [facility] Respiratory rate 2024-05-18 04:14:00 27 /min [facility] Oxygen saturation in Arterial blood by Pulse oximetry 2024-05-18 04:14:00 94 /min [facility] Systolic blood pressure 2024-05-18 04:00:00 141 mm[Hg] [facility] Diastolic blood pressure 2024-05-18 04:00:00 122 mm[Hg] [facility] Body height 2024-05-18 00:33:00 157.5 cm [facility] Body weight 2024-05-18 00:33:00 107.502 kg [facility] BMI 2024-05-18 00:33:00 43.35 kg/m2 [facility] Heart rate 2024-05-08 02:05:00 91 /min [facility] Respiratory rate 2024-05-08 02:05:00 22 /min [facility] Oxygen saturation in Arterial blood by Pulse oximetry 2024-05-08 02:05:00 95 /min [facility] Systolic blood pressure 2024-05-08 02:00:00 140 mm[Hg] [facility] Diastolic blood pressure 2024-05-08 02:00:00 86 mm[Hg] [facility] Body temperature 2024-05-07 23:46:00 36.78 Latanya [facility] Body height 2024-05-07 23:46:00 157.5 cm [facility] Body weight 2024-05-07 23:46:00 107.729 kg [facility] BMI 2024-05-07 23:46:00 43.44 kg/m2 [facility] Height 2024-04-10 16:28:00 157.779039 cm [facility] Weight 2024-04-10 16:28:00 104.769354 kg [facility] BMI (Body Mass Index) 2024-04-10 16:28:00 42.1 kg/m2 [facility] Systolic blood pressure 2024-04-09 01:30:00 134 mm[Hg] [facility] Diastolic blood pressure 2024-04-09 01:30:00 64 mm[Hg] [facility] Heart rate 2024-04-09 01:30:00 102 /min [facility] Body temperature 2024-04-09 01:30:00 36.61 Latanya [facility] Respiratory rate 2024-04-09 01:30:00 17 /min [facility] Oxygen saturation in Arterial blood by Pulse oximetry 2024-04-09 01:30:00 96 /min [facility] Body height 2024-04-08 22:31:00 157.5 cm [facility] Body weight 2024-04-08 22:31:00 104.327 kg [facility] BMI 2024-04-08 22:31:00 42.07 kg/m2 [facility] Body temperature 2023-12-13 14:10:00 36.72 Latanya Kellee [...] Systolic blood pressure 2023-10-11 05:00:00 126 mm[Hg] [facility] Diastolic blood pressure 2023-10-11 05:00:00 87 mm[Hg] [facility] Heart rate 2023-10-11 05:00:00 94 /min [facility] Respiratory rate 2023-10-11 05:00:00 22 /min [facility] Oxygen saturation in Arterial blood by Pulse oximetry 2023-10-11 05:00:00 98 /min [facility] Body temperature 2023-10-11 02:28:00 37.22 Latanya [facility] Body height 2023-10-11 02:28:00 157.5 cm [facility] Body weight 2023-10-11 02:28:00 99.791 kg [facility] BMI 2023-10-11 02:28:00 40.24 kg/m2 [facility] Systolic blood pressure 2023-07-02 04:10:00 147 mm[Hg] [facility] Diastolic blood pressure 2023-07-02 04:10:00 89 mm[Hg] [facility] Heart rate 2023-07-02 04:10:00 73 /min [facility] Respiratory rate 2023-07-02 04:10:00 19 /min [facility] Oxygen saturation in Arterial blood by Pulse oximetry 2023-07-02 04:10:00 98 /min [facility] Body temperature 2023-07-02 01:47:00 36.78 Latanya [facility] Body height 2023-07-02 01:47:00 160 cm [facility] Body weight 2023-07-02 01:47:00 97.659 kg [facility] BMI 2023-07-02 01:47:00 38.14 kg/m2 [facility] Systolic blood pressure 2023-05-10 01:00:00 133 mm[Hg] [facility] Diastolic blood pressure 2023-05-10 01:00:00 81 mm[Hg] [facility] Heart rate 2023-05-10 01:00:00 64 /min [facility] Respiratory rate 2023-05-10 01:00:00 21 /min [facility] Oxygen saturation in Arterial blood by Pulse oximetry 2023-05-10 01:00:00 96 /min [facility] Body temperature 2023-05-09 22:43:00 36.67 Latanya [facility] Body height 2023-05-09 22:43:00 157.5 cm [facility] Body weight 2023-05-09 22:43:00 99.791 kg [facility] BMI 2023-05-09 22:43:00 40.24 kg/m2 [facility] Systolic blood pressure 2023-05-01 01:00:00 107 mm[Hg] [facility] Diastolic blood pressure 2023-05-01 01:00:00 80 mm[Hg] [facility] Heart rate 2023-05-01 01:00:00 80 /min [facility] Body temperature 2023-05-01 01:00:00 37.06 Latanya [facility] Respiratory rate 2023-05-01 01:00:00 16 /min [facility] Oxygen saturation in Arterial blood by Pulse oximetry 2023-05-01 01:00:00 98 /min [facility] Body height 2023-04-30 22:16:00 157.5 cm [facility] Body weight 2023-04-30 22:16:00 95.255 kg [facility] BMI 2023-04-30 22:16:00 38.41 kg/m2 [facility] Systolic blood pressure 2023-04-17 02:00:00 147 mm[Hg] [facility] Diastolic blood pressure 2023-04-17 02:00:00 83 mm[Hg] [facility] Heart rate 2023-04-17 02:00:00 90 /min [facility] Respiratory rate 2023-04-17 02:00:00 18 /min [facility] Oxygen saturation in Arterial blood by Pulse oximetry 2023-04-17 02:00:00 96 /min [facility] Body temperature 2023-04-17 01:33:00 36.78 Latanya [facility] Body height 2023-04-17 01:33:00 157.5 cm [facility] Body weight 2023-04-17 01:33:00 99.791 kg [facility] BMI 2023-04-17 01:33:00 40.24 kg/m2 [facility] Systolic blood pressure 2023-04-09 01:04:48 135 mm[Hg] [facility] Diastolic blood pressure 2023-04-09 01:04:48 84 mm[Hg] [facility] Heart rate 2023-04-09 01:04:48 67 /min [facility] Respiratory rate 2023-04-09 01:04:48 16 /min [facility] Oxygen saturation in Arterial blood by Pulse oximetry 2023-04-09 01:04:48 99 /min [facility] Body temperature 2023-04-08 22:16:00 36.67 Latanya [facility] Body height 2023-04-08 22:16:00 157.5 cm [facility] Body weight 2023-04-08 22:16:00 99.791 kg [facility] BMI 2023-04-08 22:16:00 40.24 kg/m2 [facility] Systolic blood pressure 2023-03-10 05:00:00 156 mm[Hg] [facility] Diastolic blood pressure 2023-03-10 05:00:00 94 mm[Hg] [facility] Heart rate 2023-03-10 05:00:00 75 /min [facility] Respiratory rate 2023-03-10 05:00:00 21 /min [facility] Oxygen saturation in Arterial blood by Pulse oximetry 2023-03-10 05:00:00 97 /min [facility] Body temperature 2023-03-10 01:20:00 36.72 Latanya [facility] Body height 2023-03-10 01:20:00 157.5 cm [facility] Body weight 2023-03-10 01:20:00 100.381 kg [facility] BMI 2023-03-10 01:20:00 40.48 kg/m2 [facility] Systolic blood pressure 2023-03-02 06:00:00 126 mm[Hg] [facility] Diastolic blood pressure 2023-03-02 06:00:00 79 mm[Hg] [facility] Heart rate 2023-03-02 06:00:00 69 /min [facility] Respiratory rate 2023-03-02 06:00:00 23 /min [facility] Oxygen saturation in Arterial blood by Pulse oximetry 2023-03-02 06:00:00 94 /min [facility] Body temperature 2023-03-02 00:34:00 37.28 Latanya [facility] Body height 2023-03-02 00:34:00 157.5 cm [facility] Body weight 2023-03-02 00:34:00 99.791 kg [facility] BMI 2023-03-02 00:34:00 40.24 kg/m2 [facility] Systolic blood pressure 2023-02-18 06:46:00 126 mm[Hg] [facility] Diastolic blood pressure 2023-02-18 06:46:00 77 mm[Hg] [facility] Heart rate 2023-02-18 06:46:00 79 /min [facility] Respiratory rate 2023-02-18 06:46:00 16 /min [facility] Oxygen saturation in Arterial blood by Pulse oximetry 2023-02-18 06:46:00 95 /min [facility] Body temperature 2023-02-18 03:55:00 36.72 Latanya [facility] Body height 2023-02-18 03:55:00 157.5 cm [facility] Body weight 2023-02-18 03:55:00 102.331 kg [facility] BMI 2023-02-18 03:55:00 41.26 kg/m2 [facility] Systolic blood pressure 2023-02-17 16:20:00 113 mm[Hg] [facility] Diastolic blood pressure 2023-02-17 16:20:00 65 mm[Hg] [facility] Heart rate 2023-02-17 16:20:00 65 /min [facility] Body temperature 2023-02-17 16:20:00 36.83 Latanya [facility] Respiratory rate 2023-02-17 16:20:00 16 /min [facility] Oxygen saturation in Arterial blood by Pulse oximetry 2023-02-17 16:20:00 97 /min [facility] Body weight 2023-02-17 08:50:00 99.973 kg [facility] BMI 2023-02-17 08:50:00 40.31 kg/m2 [facility] Body height 2023-02-16 01:19:00 157.5 cm [facility] Systolic blood pressure 2022-01-10 01:24:00 120 mm[Hg] [facility] Diastolic blood pressure 2022-01-10 01:24:00 76 mm[Hg] [facility] Heart rate 2022-01-10 01:24:00 73 /min [facility] Respiratory rate 2022-01-10 01:24:00 16 /min [facility] Oxygen saturation in Arterial blood by Pulse oximetry 2022-01-10 01:24:00 96 /min [facility] Body weight 2022-01-09 21:39:00 104.327 kg [facility] BMI 2022-01-09 21:39:00 42.07 kg/m2 [facility] Systolic blood pressure 2021-12-14 07:22:00 121 mm[Hg] [facility] Diastolic blood pressure 2021-12-14 07:22:00 86 mm[Hg] [facility] Heart rate 2021-12-14 07:22:00 80 /min [facility] Respiratory rate 2021-12-14 07:22:00 17 /min [facility] Oxygen saturation in Arterial blood by Pulse oximetry 2021-12-14 07:22:00 96 /min [facility] Body temperature 2021-12-14 03:06:00 36.72 Latanya [facility] Body height 2021-12-14 03:06:00 157.5 cm [facility] Body weight 2021-12-14 03:06:00 95.255 kg [facility] BMI 2021-12-14 03:06:00 38.41 kg/m2 [facility] Systolic blood pressure 2021-11-12 04:15:00 112 mm[Hg] [facility] Diastolic blood pressure 2021-11-12 04:15:00 75 mm[Hg] [facility] Heart rate 2021-11-12 04:15:00 92 /min [facility] Body temperature 2021-11-12 04:15:00 36.44 Latanya [facility] Respiratory rate 2021-11-12 04:15:00 18 /min [facility] Oxygen saturation in Arterial blood by Pulse oximetry 2021-11-12 04:15:00 98 /min [facility] Body height 2021-11-12 00:41:00 157.5 cm [facility] Body weight 2021-11-12 00:41:00 95.255 kg [facility] BMI 2021-11-12 00:41:00 38.41 kg/m2 [facility] Systolic blood pressure 2021-09-12 01:31:00 142 mm[Hg] [facility] Diastolic blood pressure 2021-09-12 01:31:00 80 mm[Hg] [facility] Heart rate 2021-09-12 01:31:00 78 /min [facility] Body temperature 2021-09-12 01:31:00 36.72 Latanya [facility] Respiratory rate 2021-09-12 01:31:00 18 /min [facility] Body height 2021-09-12 01:31:00 157.5 cm [facility] Body weight 2021-09-12 01:31:00 99.791 kg [facility] BMI 2021-09-12 01:31:00 40.24 kg/m2 [facility] Oxygen saturation in Arterial blood by Pulse oximetry 2021-09-12 01:31:00 97 /min [facility] [facility] Systolic blood pressure 2021-08-15 08:20:00 120 mm[Hg] [facility] Diastolic blood pressure 2021-08-15 08:20:00 74 mm[Hg] [facility] Heart rate 2021-08-15 08:20:00 69 /min [facility] Respiratory rate 2021-08-15 08:20:00 20 /min [facility] Oxygen saturation in Arterial blood by Pulse oximetry 2021-08-15 08:20:00 96 /min [facility] Body temperature 2021-08-15 05:34:00 36.22 Latanya [facility] Body height 2021-08-15 05:34:00 157.5 cm [facility] Body weight 2021-08-15 05:34:00 99.791 kg [facility] BMI 2021-08-15 05:34:00 40.24 kg/m2 [facility] Systolic blood pressure 2021-05-28 10:00:00 122 mm[Hg] [facility] Diastolic blood pressure 2021-05-28 10:00:00 78 mm[Hg] [facility] Heart rate 2021-05-28 10:00:00 75 /min [facility] Respiratory rate 2021-05-28 10:00:00 20 /min [facility] Oxygen saturation in Arterial blood by Pulse oximetry 2021-05-28 10:00:00 99 /min [facility] Body temperature 2021-05-28 05:21:00 36.11 Latanya [facility] Body height 2021-05-28 05:21:00 157.5 cm [facility] Body weight 2021-05-28 05:21:00 99.791 kg [facility] BMI 2021-05-28 05:21:00 40.24 kg/m2 [facility] Systolic blood pressure 2021-04-08 21:55:00 110 mm[Hg] [facility] Diastolic blood pressure 2021-04-08 21:55:00 80 mm[Hg] [facility] Heart rate 2021-04-08 21:55:00 70 /min [facility] Body temperature 2021-04-08 21:55:00 36.28 Latanya [facility] Respiratory rate 2021-04-08 21:55:00 16 /min [facility] Oxygen saturation in Arterial blood by Pulse oximetry 2021-04-08 21:55:00 94 /min [facility] Body height 2021-04-08 03:00:00 157.5 cm [facility] Body weight 2021-04-08 03:00:00 105.688 kg [facility] BMI 2021-04-08 03:00:00 42.62 kg/m2 [facility] Systolic blood pressure 2021-01-12 09:00:00 147 mm[Hg] [facility] Diastolic blood pressure 2021-01-12 09:00:00 71 mm[Hg] [facility] Heart rate 2021-01-12 09:00:00 103 /min [facility] Respiratory rate 2021-01-12 09:00:00 18 /min [facility] Oxygen saturation in Arterial blood by Pulse oximetry 2021-01-12 09:00:00 97 /min [facility] Body temperature 2021-01-12 07:48:00 37.06 Latayna [facility] Body height 2021-01-12 07:48:00 157.5 cm [facility] Body weight 2021-01-12 07:48:00 102.513 kg [facility] BMI 2021-01-12 07:48:00 41.34 kg/m2 [facility] Systolic blood pressure 2020-12-11 01:30:00 136 mm[Hg] [facility] Diastolic blood pressure 2020-12-11 01:30:00 88 mm[Hg] [facility] Heart rate 2020-12-11 01:30:00 99 /min [facility] Respiratory rate 2020-12-11 01:30:00 28 /min [facility] Oxygen saturation in Arterial blood by Pulse oximetry 2020-12-11 01:30:00 97 /min [facility] Body temperature 2020-12-10 22:11:00 36.78 Latanya [facility] Body weight 2020-12-10 22:11:00 99.791 kg [facility] BMI 2020-12-10 22:11:00 40.24 kg/m2 [facility] Systolic blood pressure 2020-12-04 21:30:00 126 mm[Hg] [facility] Diastolic blood pressure 2020-12-04 21:30:00 79 mm[Hg] [facility] Heart rate 2020-12-04 21:30:00 91 /min [facility] Respiratory rate 2020-12-04 21:30:00 20 /min [facility] Oxygen saturation in Arterial blood by Pulse oximetry 2020-12-04 21:30:00 96 /min [facility] Body temperature 2020-12-04 19:49:00 37.06 Latanya [facility] Body height 2020-12-04 19:49:00 157.5 cm [facility] Body weight 2020-12-04 19:49:00 99.791 kg [facility] BMI 2020-12-04 19:49:00 40.24 kg/m2 [facility] Systolic blood pressure 2020-11-04 01:42:00 142 mm[Hg] [facility] Diastolic blood pressure 2020-11-04 01:42:00 100 mm[Hg] [facility] Heart rate 2020-11-04 01:42:00 109 /min [facility] Body temperature 2020-11-04 01:42:00 36.78 Latanya [facility] Respiratory rate 2020-11-04 01:42:00 20 /min [facility] Body weight 2020-11-04 01:42:00 99.791 kg [facility] BMI 2020-11-04 01:42:00 40.24 kg/m2 [facility] Oxygen saturation in Arterial blood by Pulse oximetry 2020-11-04 01:42:00 98 /min [facility] Systolic blood pressure 2020-09-17 15:52:00 138 mm[Hg] [facility] Diastolic blood pressure 2020-09-17 15:52:00 94 mm[Hg] [facility] Heart rate 2020-09-17 15:52:00 98 /min [facility] Body temperature 2020-09-17 15:52:00 36.94 Latanya [facility] Respiratory rate 2020-09-17 15:52:00 20 /min [facility] Body weight 2020-09-17 15:52:00 95.255 kg [facility] BMI 2020-09-17 15:52:00 38.41 kg/m2 [facility] Oxygen saturation in Arterial blood by Pulse oximetry 2020-09-17 15:52:00 97 /min [facility] Systolic blood pressure 2020-09-17 15:52:00 138 mm[Hg] [facility] Diastolic blood pressure 2020-09-17 15:52:00 94 mm[Hg] [facility] Heart rate 2020-09-17 15:52:00 98 /min [facility] Body temperature 2020-09-17 15:52:00 36.94 Latanya [facility] Respiratory rate 2020-09-17 15:52:00 20 /min [facility] Body weight 2020-09-17 15:52:00 95.255 kg [facility] BMI 2020-09-17 15:52:00 38.41 kg/m2 [facility] Oxygen saturation in Arterial blood by Pulse oximetry 2020-09-17 15:52:00 97 /min [facility] Systolic blood pressure 2020-09-07 06:35:00 123 mm[Hg] [facility] Diastolic blood pressure 2020-09-07 06:35:00 56 mm[Hg] [facility] Heart rate 2020-09-07 06:35:00 97 /min [facility] Body temperature 2020-09-07 06:35:00 36.28 Latanya [facility] Respiratory rate 2020-09-07 06:35:00 18 /min [facility] Body weight 2020-09-07 06:35:00 99.791 kg [facility] BMI 2020-09-07 06:35:00 40.24 kg/m2 [facility] Oxygen saturation in Arterial blood by Pulse oximetry 2020-09-07 06:35:00 98 /min [facility] Systolic blood pressure 2020-09-07 06:35:00 123 mm[Hg] [facility] Diastolic blood pressure 2020-09-07 06:35:00 56 mm[Hg] [facility] Heart rate 2020-09-07 06:35:00 97 /min [facility] Body temperature 2020-09-07 06:35:00 36.28 Latanya [facility] Respiratory rate 2020-09-07 06:35:00 18 /min [facility] Body weight 2020-09-07 06:35:00 99.791 kg [facility] BMI 2020-09-07 06:35:00 40.24 kg/m2 [facility] Oxygen saturation in Arterial blood by Pulse oximetry 2020-09-07 06:35:00 98 /min [facility] Systolic blood pressure 2020-08-28 09:00:00 132 mm[Hg] [facility] Diastolic blood pressure 2020-08-28 09:00:00 87 mm[Hg] [facility] Heart rate 2020-08-28 09:00:00 90 /min [facility] Respiratory rate 2020-08-28 09:00:00 20 /min [facility] Oxygen saturation in Arterial blood by Pulse oximetry 2020-08-28 09:00:00 97 /min [facility] Body temperature 2020-08-28 07:59:00 36.72 Latanya [facility] Body height 2020-08-28 07:59:00 157.5 cm [facility] Body weight 2020-08-28 07:59:00 99.791 kg [facility] BMI 2020-08-28 07:59:00 40.24 kg/m2 [facility] Systolic blood pressure 2020-08-28 09:00:00 132 mm[Hg] [facility] Diastolic blood pressure 2020-08-28 09:00:00 87 mm[Hg] [facility] Heart rate 2020-08-28 09:00:00 90 /min [facility] Respiratory rate 2020-08-28 09:00:00 20 /min [facility] Oxygen saturation in Arterial blood by Pulse oximetry 2020-08-28 09:00:00 97 /min [facility] Body temperature 2020-08-28 07:59:00 36.72 Latanya [facility] Body height 2020-08-28 07:59:00 157.5 cm [facility] Body weight 2020-08-28 07:59:00 99.791 kg [facility] BMI 2020-08-28 07:59:00 40.24 kg/m2 [facility] Systolic blood pressure 2020-08-14 19:40:00 135 mm[Hg] [facility] Diastolic blood pressure 2020-08-14 19:40:00 100 mm[Hg] [facility] Heart rate 2020-08-14 19:40:00 68 /min [facility] Body temperature 2020-08-14 19:40:00 37.11 Latanya [facility] Respiratory rate 2020-08-14 19:40:00 19 /min [facility] Oxygen saturation in Arterial blood by Pulse oximetry 2020-08-14 19:40:00 99 /min [facility] Body height 2020-08-14 17:41:00 157.5 cm [facility] Body weight 2020-08-14 17:41:00 99.791 kg [facility] BMI 2020-08-14 17:41:00 40.24 kg/m2 [facility] Systolic blood pressure 2020-08-14 19:40:00 135 mm[Hg] [facility] Diastolic blood pressure 2020-08-14 19:40:00 100 mm[Hg] [facility] Heart rate 2020-08-14 19:40:00 68 /min [facility] Body temperature 2020-08-14 19:40:00 37.11 Latanya [facility] Respiratory rate 2020-08-14 19:40:00 19 /min [facility] Oxygen saturation in Arterial blood by Pulse oximetry 2020-08-14 19:40:00 99 /min [facility] Body height 2020-08-14 17:41:00 157.5 cm [facility] Body weight 2020-08-14 17:41:00 99.791 kg [facility] BMI 2020-08-14 17:41:00 40.24 kg/m2 [facility] Systolic blood pressure 2020-08-11 04:00:00 106 mm[Hg] [facility] Diastolic blood pressure 2020-08-11 04:00:00 92 mm[Hg] [facility] Heart rate 2020-08-11 04:00:00 90 /min [facility] Respiratory rate 2020-08-11 04:00:00 16 /min [facility] Oxygen saturation in Arterial blood by Pulse oximetry 2020-08-11 04:00:00 99 /min [facility] Body temperature 2020-08-11 03:12:56 37.72 Latanya [facility] Body height 2020-08-11 00:19:00 157.5 cm [facility] Body weight 2020-08-11 00:19:00 99.791 kg [facility] BMI 2020-08-11 00:19:00 40.24 kg/m2 [facility] Systolic blood pressure 2020-08-11 04:00:00 106 mm[Hg] [facility] Diastolic blood pressure 2020-08-11 04:00:00 92 mm[Hg] [facility] Heart rate 2020-08-11 04:00:00 90 /min [facility] Respiratory rate 2020-08-11 04:00:00 16 /min [facility] Oxygen saturation in Arterial blood by Pulse oximetry 2020-08-11 04:00:00 99 /min [facility] Body temperature 2020-08-11 03:12:56 37.72 Latanya [facility] Body height 2020-08-11 00:19:00 157.5 cm [facility] Body weight 2020-08-11 00:19:00 99.791 kg [facility] BMI 2020-08-11 00:19:00 40.24 kg/m2 [facility] Systolic blood pressure 2020-08-07 13:16:00 100 mm[Hg] [facility] Diastolic blood pressure 2020-08-07 13:16:00 69 mm[Hg] [facility] Heart rate 2020-08-07 13:16:00 99 /min [facility] Body temperature 2020-08-07 13:16:00 36.67 Latanya [facility] Respiratory rate 2020-08-07 13:16:00 18 /min [facility] Body weight 2020-08-07 13:16:00 95.255 kg [facility] BMI 2020-08-07 13:16:00 38.41 kg/m2 [facility] Oxygen saturation in Arterial blood by Pulse oximetry 2020-08-07 13:16:00 99 /min [facility] Systolic blood pressure 2020-08-07 13:16:00 100 mm[Hg] [facility] Diastolic blood pressure 2020-08-07 13:16:00 69 mm[Hg] [facility] Heart rate 2020-08-07 13:16:00 99 /min [facility] Body temperature 2020-08-07 13:16:00 36.67 Latanya [facility] Respiratory rate 2020-08-07 13:16:00 18 /min [facility] Body weight 2020-08-07 13:16:00 95.255 kg [facility] BMI 2020-08-07 13:16:00 38.41 kg/m2 [facility] Oxygen saturation in Arterial blood by Pulse oximetry 2020-08-07 13:16:00 99 /min [facility] Systolic blood pressure 2020-07-01 02:00:00 136 mm[Hg] [facility] Diastolic blood pressure 2020-07-01 02:00:00 85 mm[Hg] [facility] Heart rate 2020-07-01 02:00:00 73 /min [facility] Respiratory rate 2020-07-01 02:00:00 20 /min [facility] Oxygen saturation in Arterial blood by Pulse oximetry 2020-07-01 02:00:00 97 /min [facility] Body temperature 2020-06-30 23:36:00 36.56 Latanya [facility] Body height 2020-06-30 23:36:00 157.5 cm [facility] Body weight 2020-06-30 23:36:00 95.255 kg [facility] BMI 2020-06-30 23:36:00 38.41 kg/m2 [facility] Systolic blood pressure 2020-07-01 02:00:00 136 mm[Hg] [facility] Diastolic blood pressure 2020-07-01 02:00:00 85 mm[Hg] [facility] Heart rate 2020-07-01 02:00:00 73 /min [facility] Respiratory rate 2020-07-01 02:00:00 20 /min [facility] Oxygen saturation in Arterial blood by Pulse oximetry 2020-07-01 02:00:00 97 /min [facility] Body temperature 2020-06-30 23:36:00 36.56 Latanya [facility] Body height 2020-06-30 23:36:00 157.5 cm [facility] Body weight 2020-06-30 23:36:00 95.255 kg [facility] BMI 2020-06-30 23:36:00 38.41 kg/m2 [facility] Systolic blood pressure 2020-06-28 21:57:00 151 mm[Hg] [facility] Diastolic blood pressure 2020-06-28 21:57:00 88 mm[Hg] [facility] Heart rate 2020-06-28 21:57:00 94 /min [facility] Body temperature 2020-06-28 21:57:00 37.78 Latanya [facility] Respiratory rate 2020-06-28 21:57:00 16 /min [facility] Body height 2020-06-28 21:57:00 157.5 cm [facility] Body weight 2020-06-28 21:57:00 95.255 kg [facility] BMI 2020-06-28 21:57:00 38.41 kg/m2 [facility] Oxygen saturation in Arterial blood by Pulse oximetry 2020-06-28 21:57:00 96 /min [facility] Systolic blood pressure 2020-06-28 21:57:00 151 mm[Hg] [facility] Diastolic blood pressure 2020-06-28 21:57:00 88 mm[Hg] [facility] Heart rate 2020-06-28 21:57:00 94 /min [facility] Body temperature 2020-06-28 21:57:00 37.78 Latanya [facility] Respiratory rate 2020-06-28 21:57:00 16 /min [facility] Body height 2020-06-28 21:57:00 157.5 cm [facility] Body weight 2020-06-28 21:57:00 95.255 kg [facility] BMI 2020-06-28 21:57:00 38.41 kg/m2 [facility] Oxygen saturation in Arterial blood by Pulse oximetry 2020-06-28 21:57:00 96 /min [facility] Systolic blood pressure 2020-06-13 03:40:00 122 mm[Hg] [facility] Diastolic blood pressure 2020-06-13 03:40:00 78 mm[Hg] [facility] Heart rate 2020-06-13 03:40:00 90 /min [facility] Respiratory rate 2020-06-13 03:40:00 18 /min [facility] Oxygen saturation in Arterial blood by Pulse oximetry 2020-06-13 03:40:00 94 /min [facility] Body temperature 2020-06-12 23:39:00 37.22 Latanya [facility] Body weight 2020-06-12 23:39:00 97.07 kg [facility] BMI 2020-06-12 23:39:00 39.14 kg/m2 [facility] Systolic blood pressure 2020-06-13 03:40:00 122 mm[Hg] [facility] Diastolic blood pressure 2020-06-13 03:40:00 78 mm[Hg] [facility] Heart rate 2020-06-13 03:40:00 90 /min [facility] Respiratory rate 2020-06-13 03:40:00 18 /min [facility] Oxygen saturation in Arterial blood by Pulse oximetry 2020-06-13 03:40:00 94 /min [facility] Body temperature 2020-06-12 23:39:00 37.22 Latanya [facility] Body weight 2020-06-12 23:39:00 97.07 kg [facility] BMI 2020-06-12 23:39:00 39.14 kg/m2 [facility] Heart rate 2020-05-17 00:40:00 82 /min [facility] Respiratory rate 2020-05-17 00:40:00 18 /min [facility] Oxygen saturation in Arterial blood by Pulse oximetry 2020-05-17 00:40:00 95 /min [facility] Systolic blood pressure 2020-05-17 00:00:00 137 mm[Hg] [facility] Diastolic blood pressure 2020-05-17 00:00:00 93 mm[Hg] [facility] Body temperature 2020-05-16 23:17:00 37.61 Latanya [facility] Body weight 2020-05-16 23:17:00 97.07 kg [facility] BMI 2020-05-16 23:17:00 39.14 kg/m2 [facility] Heart rate 2020-05-17 00:40:00 82 /min [facility] Respiratory rate 2020-05-17 00:40:00 18 /min [facility] Oxygen saturation in Arterial blood by Pulse oximetry 2020-05-17 00:40:00 95 /min [facility] Systolic blood pressure 2020-05-17 00:00:00 137 mm[Hg] [facility] Diastolic blood pressure 2020-05-17 00:00:00 93 mm[Hg] [facility] Body temperature 2020-05-16 23:17:00 37.61 Latanya [facility] Body weight 2020-05-16 23:17:00 97.07 kg [facility] BMI 2020-05-16 23:17:00 39.14 kg/m2 [facility] Systolic blood pressure 2020-05-15 08:50:00 131 mm[Hg] [facility] Diastolic blood pressure 2020-05-15 08:50:00 80 mm[Hg] [facility] Heart rate 2020-05-15 08:50:00 70 /min [facility] Respiratory rate 2020-05-15 08:50:00 18 /min [facility] Oxygen saturation in Arterial blood by Pulse oximetry 2020-05-15 08:50:00 97 /min [facility] Body temperature 2020-05-15 05:29:00 36.44 Latanya [facility] Body height 2020-05-15 05:29:00 157.5 cm [facility] Body weight 2020-05-15 05:29:00 97.07 kg Simultaneous filing. User may not have seen previous data. [facility] BMI 2020-05-15 05:29:00 39.14 kg/m2 [facility] Systolic blood pressure 2020-05-15 08:50:00 131 mm[Hg] [facility] Diastolic blood pressure 2020-05-15 08:50:00 80 mm[Hg] [facility] Heart rate 2020-05-15 08:50:00 70 /min [facility] Respiratory rate 2020-05-15 08:50:00 18 /min [facility] Oxygen saturation in Arterial blood by Pulse oximetry 2020-05-15 08:50:00 97 /min [facility] Body temperature 2020-05-15 05:29:00 36.44 Latanya [facility] Body height 2020-05-15 05:29:00 157.5 cm [facility] Body weight 2020-05-15 05:29:00 97.07 kg Simultaneous filing. User may not have seen previous data. [facility] BMI 2020-05-15 05:29:00 39.14 kg/m2 [facility] Procedures Procedure Date / Time Performed Performing Clinician Source CBC WITH DIFF 2025-03-25 22:43:00 Thai Galo [facility] MAGNESIUM 2025-03-08 05:08[facility]00 [facility] (NA, K, CL, CO2, GLUCOSE, BUN, CREATININE, CA) 2025-03-08 05:08:00 Anthony Roman [facility] CBC WITH DIFF 2025-03-08 05:08:00 Anthony Roman [facility] TROPONIN I 2025-03-08 04:47:00 Anthony Roman [facility] XR CHEST 1 VW 2025-03-07 21:51:06 [facility]25-03-07 21:41[facility]00 [facility] 2025-03-07 19:49:00 Amna Mosley Un [facility] TROPONIN I 2025-03-07 19:49:00 Amna Mosley Un [facility] COMP. METABOLIC PANEL ([id number]) 2025-03-07 19:49:00 Amna Mosley [facility] CBC WITH DIFF 2025-03-07 19:49:00 Amna Mosley [facility] INFLUENZA A/B RSV COVID NAAT 2025-03-07 19:49:00 Amna Mosley [facility] N-TERMINAL PRO-BNP 2025-03-07 19:49:00 Debbie Mosley [facility] HB ECG ROUTINE & RHYTHM STRIP 2025-03-07 18:55:03 Amna Mosley [facility] URINALYSIS 2025-03-07 18:52:00 Amna Mosley Un [facility] CT ABDOMEN PELVIS W CONTRAST 2025-03-04 23:21:21 Ramirez Calderon [facility] URINALYSIS 2025-03-04 23:05:00 Ramirez Calderon [facility] POCT TEST 2025-03-04 23:05:00 Laverne Calderon [facility] LIPASE 2025-03-04 21:49:00 Ramirez Calderon [facility] TROPONIN I 2025-03-04 21:49:00 LandydenaRamirez cruz [facility] COMP. METABOLIC PANEL ([id number]) 2025-03-04 21:49:00 Ramirez Calderon [facility] CBC WITH DIFF 2025-03-04 21:49:00 [facility]verne [facility] 2024-12-14 19:48:00 Kiran Rivero [facility] URINALYSIS 2024-12-14 19:46:00 Kiran Rivero [facility] LIPASE 2024-12-14 19:08:00 Kiran Rivero [facility] COMP. METABOLIC PANEL ([id number]) 2024-12-14 19:08:00 Kiran Rivero [facility] CBC WITH DIFF 2024-12-14 19:08:00 Kiran Rivero [facility] EKG (SCANNED DOCUMENTS) 2024-12-09 20:20:06 Doct or Unassigned, [place] [facility] TROPONIN I 2024-12-09 01:33:00 Roberto Richards [facility] COMP. METABOLIC PANEL ([id number]) 2024-12-09 01:33:00 Roberto Richards [facility] CBC WITH DIFF 2024-12-09 01:33:00 Roebrto Richards [facility] N-TERMINAL PRO-BNP 2024-12-09 01:33:00 Roberto Richards [facility] MAGNESIUM 2024-11-27 08:21:00 Alexx Kwok [facility] TROPONIN I 2024-11-27 08:21:00 Alexx Kwok [facility] BASIC METABOLIC PANEL (NA, K, CL, CO2, GLUCOSE, BUN, CREATININE, CA) 2024-11-27 08:21:00 Alexx Kwok [facility] LIPID PANEL ([id number])(TOTAL CHOLESTEROL, TRIGLYCERIDES, HDL) 2024-11-27 08:21:00 Alexx Kwok [facility] CBC WITH DIFF 2024-11-27 08:21:00 [facility]24-11-27 03:14:00 Alexx Kwok [facility] LIPASE 2024-11-26 23:54:00 [facility] MAGNESIUM 2024-11-26 23:54:00 [facility] TROPONIN I 2024-11-26 23:54:00 Singer [facility] COMP. METABOLIC PANEL ([id number]) 2024-11-26 23:54:00 Singer [facility] CBC WITH DIFF 2024-11-26 23:54:00 Singer [facility] N-TERMINAL PRO-BNP 2024-11-26 23:54:00 Singer [facility] XR CHEST 1 VW 2024-11-26 23:28:51 Singer [facility] HB ECG ROUTINE & RHYTHM STRIP 2024-11-26 22:53:55 Singer [facility] URINALYSIS 2024-11-15 01:45:00 Bushra Rios [facility] POCT TEST 2024-11-15 01:45:00 Rosario Rios ra [facility] CT ABDOMEN PELVIS W CONTRAST 2024-11-11 04:01:35 Bob Garcia [facility] POCT TEST 2024-11-11 02:26:00 Bob Garcia [facility] LIPASE 2024-11-11 02:23:00 Bob Garcia [facility] COMP. METABOLIC PANEL ([id number]) 2024-11-11 02:23:00 Bob Garcia [facility] CBC WITH DIFF 2024-11-11 02:23:00 Bob Garica [facility] URINALYSIS 2024-11-11 02:23:00 Bob Garcia [facility] MAGNESIUM 2024-11-04 09:46:00 Corinna Cowan [facility] BASIC METABOLIC PANEL (NA, K, CL, CO2, GLUCOSE, BUN, CREATININE, CA) 2024-11-04 09:46:00 Jean Carlos Cowan [facility] CBC WITH DIFF 2024-11-04 09:46:00 Corinna Cowan [facility] MAGNESIUM 2024-11-04 09:46:00 Corinna Cowan [facility] BASIC METABOLIC PANEL (NA, K, CL, CO2, GLUCOSE, BUN, CREATININE, CA) 2024-11-04 09:46:00 Jean Carlos Cowan [facility] CBC WITH DIFF 2024-11-04 09:46:00 Corinna Cowan [facility] CATH PROCEDURE LOG 2024-11-03 20:05:03 Rosario Virk [facility] CATH PROCEDURE LOG 2024-11-03 20:05:03 Rosario Virk r [facility] CARDIAC CATHETERIZATION 2024-11-03 19:40:00 Rika Virk [facility] CARDIAC CATHETERIZATION 2024-11-03 19:40:00 Rika Virk [facility] CARDIAC CATHETERIZATION 2024-11-03 19:40:00 Rika Virk [facility] CARDIAC CATHETERIZATION 2024-11-03 19:40:00 Rika Virk [facility] CARDIAC CATHETERIZATION 2024-11-03 19:40:00 Rika Virk [facility] CARDIAC CATHETERIZATION 2024-11-03 19:40:00 Rika Virk [facility] ACTIVATED PARTIAL THRMPLAS MARCIO 2024-11-03 14:13:00 Kylah [facility] ACTIVATED PARTIAL THRMPLAS MARCIO 2024-11-03 14:13:00 Zay Montero [facility] MAGNESIUM 2024-11-03 11:08:00 Corinna Cowan [facility] BASIC METABOLIC PANEL (NA, K, CL, CO2, GLUCOSE, BUN, CREATININE, CA) 2024-11-03 11:08:00 Jean Carlos Cowan [facility] MAGNESIUM 2024-11-03 11:08:00 Corinna Cowan [facility] BASIC METABOLIC PANEL (NA, K, CL, CO2, GLUCOSE, BUN, CREATININE, CA) 2024-11-03 11:08:00 Jean Carlos Cowan [facility] CBC WITH DIFF 2024-11-03 09:45:00 Corinna Cowan [facility] CBC WITH DIFF 2024-11-03 09:45:00 Corinna Cowan [facility] ACTIVATED PARTIAL THRMPLAS MARCIO 2024-11-03 07:43:00 Kylah [facility] ACTIVATED PARTIAL THRMPLAS MARCIO 2024-11-03 07:43:00 Kylah [facility] ACTIVATED PARTIAL THRMPLAS MARCIO 2024-11-03 00:54:00 Kylah, [facility] ACTIVATED PARTIAL THRMPLAS MARCIO 2024-11-03 00:54:00 Kylah [facility] HB ECG ROUTINE & RHYTHM STRIP 2024-11-02 21:49:21 Rosario Virk [facility] ACTIVATED PARTIAL THRMPLAS MARCIO 2024-11-02 14:41:00 Kylah [facility] ACTIVATED PARTIAL THRMPLAS MARCIO 2024-11-02 14:41:00 Kylah [facility] MAGNESIUM 2024-11-02 08:35:00 Farnaz Nixon [facility] BASIC METABOLIC PANEL (NA, K, CL, CO2, GLUCOSE, BUN, CREATININE, CA) 2024-11-02 08:35:00 [facility] 2024-11-02 08:35:00 Farnaz Nixon [facility] ACTIVATED PARTIAL THRMPLAS MARCIO 2024-11-02 08:35:00 Kylah [facility] MAGNESIUM 2024-11-02 08:35:00 [facility] (NA, K, CL, CO2, GLUCOSE, BUN, CREATININE, CA) 2024-11-02 08:35:00 Hussain [facility] CBC WITH DIFF 2024-11-02 08:35:00 [facility] ACTIVATED PARTIAL THRMPLAS MARCIO 2024-11-02 08:35:00 [facility] MSSA SCREEN BY PCR, [facility] 2024-11-02 02:11:00 Khoot [facility] MRSA / MSSA SCREEN [facility] 2024-11-02 02:11:00 Khoot [facility] PHOSPHORUS 2024-11-02 02:08:00 Khoot [facility] TROPONIN I 2024-11-02 02:08:00 Brantt [facility] ACTIVATED PARTIAL THRMPLAS MARCIO 2024-11-02 02:08:00 [facility] PHOS[facility] 2024-11-02 02:08:00 Khfabbyt [facility] TROPONIN I 2024-11-02 02:08:00 Khoot [facility] ACTIVATED PARTIAL THRMPLAS MARCIO 2024-11-02 02:08:00 [facility] ROUTINE & RHYTHM STRIP 2024-11-01 23:29:25 Hussain [facility] HB ECG ROUTINE & RHYTHM STRIP 2024-11-01 23:29:25 Huss[facility] URINALYSIS 2024-11-01 19:35:00 Susie Brewer U [facility] URINE CULTURE 2024-11-01 19:35:00 Susie Brewer [facility] URINALYSIS 2024-11-01 19:35:00 Susie Brewer U [facility] URINE CULTURE 2024-11-01 19:35:00 Susie Brewer [facility] PROTHROMBIN TIME / INR 2024-11-01 19:34:00 Parmjit Montero [facility] ACTIVATED PARTIAL THRMPLAS MARCIO 2024-11-01 19:34:00 [facility] 2024-11-01 19:34:00 Parmjit Montero [facility] ACTIVATED PARTIAL THRMPLAS MARCIO 2024-11-01 19:34:00 [facility] (TTE) COMPLETE W/ CONTRAST 2024-11-01 13:44:[address] [facility] TRANSTHORACIC ECHO (TTE) COMPLETE W/ CONTRAST 2024-11-01 13:44:[address] [facility] TROPONIN I 2024-11-01 13:26:00 Viviana [facility] THYROID STIMULATING HORMONE 2024-11-01 13:26:00 Hussain [facility] LIPID PANEL ([id number])(TOTAL CHOLESTEROL, TRIGLYCERIDES, HDL) 2024-11-01 13:26:00 Cecilio Sendil [facility] N-TERMINAL PRO-BNP 2024-11-01 13:26:00 Cecilio, Sendmaddi [facility] TROPONIN I 2024-11-01 13:26:00 Viviana [facility] THYROID STIMULATING HORMONE 2024-11-01 13:26:00 Hussain Farnaz [facility] LIPID PANEL ([id number])(TOTAL CHOLESTEROL, TRIGLYCERIDES, HDL) 2024-11-01 13:26:00 Cecilio Sendil [facility] N-TERMINAL PRO-BNP 2024-11-01 13:26:00 Cecilio, Sendil [facility] INFLUENZA A/B RSV COVID NAAT 2024-11-01 09:35:[address] [facility] LAB ONLY COVID INTERPRETATION 2024-11-01 09:35:[address] [facility] INFLUENZA A/B RSV COVID NAAT 2024-11-01 09:35:[address] [facility] LAB ONLY COVID INTERPRETATION 2024-11-01 09:35:[address] [facility] TROPONIN I 2024-11-01 07:17:[address] [facility]OLIC PANEL (NA, K, CL, CO2, GLUCOSE, BUN, CREATININE, CA) 2024-11-01 07:17:[address] [facility] CBC WITH DIFF 2024-11-01 07:17[facility] H[facility]OGLOBIN (A1C) 2024-11-01 07:17:00 Natasha Hernandes [facility] PROCALCITONIN 2024-11-01 07:17:00 [facility] 2024-11-01 07:17:[address] [facility] METABOLIC PANEL (NA, K, CL, CO2, GLUCOSE, BUN, CREATININE, CA) 2024-11-01 07:17:[address] [facility] CBC WITH DIFF 2024-11-01 07:[facility]IN (A1C) 2024-11-01 07:17:00 Natasha Hernandes [facility] PROCALCITONIN 2024-11-01 07:17:00 [facility] 1 VW 2024-11-01 03:19:58 Bob Garcia [facility] XR CHEST 1 2024-11-01 03:19:58 Bob Garcia [facility] LIPASE 2024-11-01 02:53:00 Bob Garcia [facility] TROPONIN I 2024-11-01 02:53:00 Bob Garcia [facility] COMP. METABOLIC PANEL ([id number]) 2024-11-01 02:53:00 Bob Garcia [facility] CBC WITH DIFF 2024-11-01 02:53:00 Bob Garcia [facility] LIPASE 2024-11-01 02:53:00 Bob Garcia [facility] TROPONIN I 2024-11-01 02:53:00 Bob Garcia [facility] COMP. METABOLIC PANEL ([id number]) 2024-11-01 02:53:00 Bob Garcia [facility] CBC WITH DIFF 2024-11-01 02:53:00 Bob Garcia [facility] HB ECG ROUTINE & RHYTHM STRIP 2024-11-01 02:32:05 Bob Garcia [facility] HB ECG ROUTINE & RHYTHM STRIP 2024-11-01 02:32:05 Bob Garcia [facility] CT ABDOMEN PELVIS W CONTRAST 2024-10-24 03:31:17 Juanjose Barker [facility] LIPASE 2024-10-24 01:34:00 Juanjose Barker [facility] COMP. METABOLIC PANEL ([id number]) 2024-10-24 01:34:00 Juanjose Barker [facility] CBC WITH DIFF 2024-10-24 01:34:00 Juanjose Barker [facility] URINALYSIS 2024-10-24 01:34:00 Juanjose Barker [facility] TROPONIN I 2024-10-13 06:39:00 Bob Garcia [facility] LIPASE 2024-10-13 04:20:00 Bob Garcia [facility] TROPONIN I 2024-10-13 04:20:00 Bob Garcia [facility] COMP. METABOLIC PANEL ([id number]) 2024-10-13 04:20:00 Bob Garcia [facility] CBC WITH DIFF 2024-10-13 04:20:00 Bob Garcia [facility] N-TERMINAL PRO-BNP 2024-10-13 04:20:00 Bob Garcia [facility] POCT TEST 2024-10-13 03:46:00 Bob Garcia [facility] URINALYSIS 2024-10-13 03:39:00 Bob Garcia [facility] URINE DRUG (IMMUNOASSAY) - COMPREHENSIVE DRUG SCREEN 2024-07-19 06:11:00 Saleem Edward [facility] URINALYSIS 2024-07-19 06:11:00 Saleem Edward [facility] CT CHEST PULMONARY ANGIOGRAM 2024-07-19 05:46:40 Saleem Edward [facility] MAGNESIUM 2024-07-19 05:08:00 Saleem Edward Eleni [facility] TROPONIN I 2024-07-19 05:08:00 Saleem Edward Eleni [facility] COMP. METABOLIC PANEL ([id number]) 2024-07-19 05:08:00 Saleem Edward Eleni [facility] CBC WITH DIFF 2024-07-19 05:08:00 Saleem Edward [facility] INFLUENZA A/B RSV COVID NAAT 2024-07-19 05:08:00 Saleem Edward [facility] N-TERMINAL PRO-BNP 2024-07-19 05:08:00 Saleem Edward Eleni [facility] CT ABDOMEN PELVIS W CONTRAST 2024-07-04 05:47:25 Sandy Garcia [facility] POCT TEST 2024-07-04 05:33:00 Ross Garcia [facility] LIPASE 2024-07-04 03:23:00 Sandy Garcia [facility] COMP. METABOLIC PANEL ([id number]) 2024-07-04 03:23:00 Sandy Garcia [facility] CBC WITH DIFF 2024-07-04 03:23:00 Sandy Garcia [facility] URINALYSIS 2024-07-04 03:23:00 [facility] ABDOMEN PELVIS W CONTRAST 2024-06-15 05:33:59 [facility]24-06-15 04:18:00 Sandy [facility] LIPASE 2024-06-15 04:14:00 Sandy [facility] TEST, SERUM 2024-06-15 04:14:00 Laney Garcia [facility] TROPONIN I 2024-06-15 04:14:00 Sandy Garcia [facility] COMP. METABOLIC PANEL ([id number]) 2024-06-15 04:14:[address] [facility] 2024-06-15 04:14:00 [facility]24-06-07 07:19:00 Bob Garcia [facility] XR CHEST 1 VW 2024-06-07 05:38:37 Bob Garcia [facility] POCT TEST 2024-06-07 05:19:00 Bob Garcia [facility] URINE DRUG (IMMUNOASSAY) - COMPREHENSIVE DRUG SCREEN 2024-06-07 05:18:00 Bob Garcia [facility] TROPONIN I 2024-06-07 04:10:00 Bob Garcia [facility] COMP. METABOLIC PANEL ([id number]) 2024-06-07 04:10:00 Bob Garcia [facility] CBC WITH DIFF 2024-06-07 04:10:00 Bob Garcia [facility] CT HEAD WO CONTRAST 2024-05-19 18:22:43 Rafal Wright [facility] XR ELBOW <3 VW RIGHT 2024-05-18 02:32:12 Tammy Barrera [facility] XR FOREARM 2 VW RIGHT 2024-05-18 02:32:12 Tammy Moralez [facility] XR HAND 3+ VW RIGHT 2024-05-18 02:32:[facility] CONTRAST 2024-05-18 02:11:45 Tammy Roy [facility] CT MAXILLOFACIAL/MANDIBLE WO CONTRAST 2024-05-18 02:11:45 Tammy Roy [facility] POCT TEST 2024-05-08 02:00:00 Saleem Edward [facility] LIPASE 2024-05-08 00:31:00 [facility] MAGNESIUM 2024-05-08 00:31:00 Saleem Edward [facility] TROPONIN I 2024-05-08 00:31:00 Saleem Edward [facility] COMP. METABOLIC PANEL ([id number]) 2024-05-08 00:31:00 Saleem Edward [facility] CBC WITH DIFF 2024-05-08 00:31:00 Saleem Edward [facility] URINALYSIS 2024-05-08 00:31:00 Saleem [facility] CT ABDOMEN PELVIS WO CONTRAST 2024-04-08 23:45:15 Jacque Rojo [facility] POCT TEST 2024-04-08 23:01:00 Judy Rojo [facility] LIPASE 2024-04-08 22:47:00 [facility] COMP. METABOLIC PANEL ([id number]) 2024-04-08 22:47:00 Jacque Rojo [facility] CBC WITH DIFF 2024-04-08 22:47:00 Jacque Rojo [facility] URINALYSIS 2024-04-08 22:47:00 Jac[facility] CT ABDOMEN PELVIS W CONTRAST 2023-10-11 04:08:24 Bob Garcia [facility] POCT TEST 2023-10-11 03:40:00 Bob Garcia [facility] LIPASE 2023-10-11 03:25:00 Bob Garcia [facility] COMP. METABOLIC PANEL ([id number]) 2023-10-11 03:25:00 Bob Garcia [facility] CBC WITH DIFF 2023-10-11 03:25:00 Bob Garcia [facility] URINALYSIS 2023-10-11 03:25:00 Bob Garcia [facility] XR KUB 2023-07-02 03:34:07 [facility] POCT TEST 2023-07-02 02:30:00 Alberta Richards [facility] LIPASE 2023-07-02 02:05:00 Roberto Richards [facility] COMP. METABOLIC PANEL ([id number]) 2023-07-02 02:05:00 Roberto Richards [facility] CBC WITH DIFF 2023-07-02 02:05:00 Roberto Richards [facility] URINALYSIS 2023-07-02 02:05:00 Roberto Richards [facility] URINE DRUG (IMMUNOASSAY) - COMPREHENSIVE DRUG SCREEN W/O REFLEX 2023-07-02 02:05:00 [facility]REATMENT 2023-07-02 01:43:05 Doctor Unassigned, [place] [facility] LIPASE 2023-05-09 22:47:00 Klaudia Narvae[facility] COMP. METABOLIC PANEL ([id number]) 2023-05-09 22:47:00 Klaudia Narvaez [facility] CBC WITH DIFF 2023-05-09 22:47:00 Klaudia Narvaez [facility] CONSENT/REFUSAL FOR DIAGNOSIS AND TREATMENT 2023-05-09 22:32:48 Doctor Unassigned, [place] [facility] CT ABDOMEN PELVIS W CONTRAST 2023-04-30 23:47:56 Singer [facility] COMP. METABOLIC PANEL ([id number]) 2023-04-30 23:08:00 Klaudia Narvaez [facility] CBC WITH DIFF 2023-04-30 23:08:00 Klaudia Narvaez [facility] POCT TEST 2023-04-30 22:59:00 Jaquan Narvaez [facility] URINALYSIS 2023-04-30 22:57:00 Klaudia Narvaez [facility] CONSENT/REFUSAL FOR DIAGNOSIS AND TREATMENT 2023-04-30 22:14:38 Doctor Unassigned, [place] [facility] XR ABDOMEN ACUTE SERIES 2023-04-17 02:13:44 Do minal Richards [facility] POCT TEST 2023-04-17 02:11:00 Alberta Richards [facility] LIPASE 2023-04-17 02:04:00 Roberto Richards [facility] TROPONIN I 2023-04-17 02:04:00 Roberto Richards [facility] COMP. METABOLIC PANEL ([id number]) 2023-04-17 02:04:00 Roberto Richards [facility] CBC WITH DIFF 2023-04-17 02:04:00 [facility] / [facility]R 2023-04-17 02:04:00 Jalen Richards [facility] ACTIVATED PARTIAL THRMPLAS MARCIO 2023-04-17 02:04:00 Roberto Richards [facility] URINALYSIS 2023-04-17 02:04:00 Roberto Richards [facility] N-TERMINAL PRO-BNP 2023-04-17 02:04:00 Roberto Richards [facility] URINE DRUG (IMMUNOASSAY) - COMPREHENSIVE DRUG SCREEN W/O REFLEX 2023-04-17 02:04:00 Roberto Richards [facility] CONSENT/REFUSAL FOR DIAGNOSIS AND TREATMENT 2023-04-17 01:22:36 Doctor Unassigned, [place] [facility] URINALYSIS 2023-04-09 01:02:00 Saleem Edward [facility] LIPASE 2023-04-08 23:15:00 Saleem Edward [facility] MAGNESIUM 2023-04-08 23:15:00 Saleem Edward [facility] TROPONIN I 2023-04-08 23:15:00 Wagner, K Eleni [facility] COMP. METABOLIC PANEL ([id number]) 2023-04-08 23:15:00 Saleem Edward [facility] CBC WITH DIFF 2023-04-08 23:15:00 Saleem Edward [facility] CONSENT/REFUSAL FOR DIAGNOSIS AND TREATMENT 2023-04-08 21:57:42 Doctor Unassigned, [place] [facility] CT ABDOMEN PELVIS W CONTRAST 2023-03-10 03:38:58 Roberto Richards [facility] POCT TEST 2023-03-10 02:51:00 Alberta Richards [facility] URINALYSIS 2023-03-10 01:49:00 Roberto Richards [facility] LIPASE 2023-03-10 01:46:00 Roberto Richards [facility] COMP. METABOLIC PANEL ([id number]) 2023-03-10 01:46:00 Roberto Richards [facility] CBC WITH DIFF 2023-03-10 01:46:00 Roberto Richards [facility] CONSENT/REFUSAL FOR DIAGNOSIS AND TREATMENT 2023-03-10 01:36:24 Doctor Unassigned, [place] [facility] CONSENT/REFUSAL FOR DIAGNOSIS AND TREATMENT 2023-03-10 01:14:40 Doctor Unassigned, [place] [facility] CT ABDOMEN PELVIS W CONTRAST 2023-03-02 05:16:35 Bob Garcia [facility] POCT TEST 2023-03-02 03:26:00 Bob Garcia [facility] LIPASE 2023-03-02 03:23:00 Bob Garcia [facility] COMP. METABOLIC PANEL ([id number]) 2023-03-02 03:23:00 Bob Garcia [facility] CBC WITH DIFF 2023-03-02 03:23:00 Bob Garcia [facility] URINALYSIS 2023-03-02 03:23:00 Bob Garcia [facility] CONSENT/REFUSAL FOR DIAGNOSIS AND TREATMENT 2023-03-02 00:22:44 Doctor Unassigned, [place] [facility] CONSENT/REFUSAL FOR DIAGNOSIS AND TREATMENT 2023-02-18 03:44:46 Doctor Unassigned, [place] [facility] LIPASE 2023-02-17 09:28:00 Zay Montero [facility] HEPATIC FUNCTION PANEL ([id number]) (ALB,T.PRO,BILI T,BU/BC,ALT,AST,ALK PHOS) 2023-02-17 09:28:00 [facility]EL (NA, K, CL, CO2, GLUCOSE, BUN, CREATININE, CA) 2023-02-17 09:28:00 [facility] 2023-02-17 09:28:00 [facility] LIPASE 2023-02-16 18:24:00 Zay Montero [facility] HEPATIC FUNCTION PANEL ([id number]) (ALB,T.PRO,BILI T,BU/BC,ALT,AST,ALK PHOS) 2023-02-16 18:24:00 Kylah [facility] BASIC METABOLIC PANEL (NA, K, CL, CO2, GLUCOSE, BUN, CREATININE, CA) 2023-02-16 18:24:00 Kylah [facility] CBC WITH DIFF 2023-02-16 18:23:00 Zay Montero [facility] CT ABDOMEN PELVIS W CONTRAST 2023-02-15 23:29:00 Leeanne Wise [facility] LIPASE 2023-02-15 21:45:00 Leeanne Wise [facility] COMP. METABOLIC PANEL ([id number]) 2023-02-15 21:45:00 Leeanne Wise [facility] CBC WITH DIFF 2023-02-15 21:45:00 Leeanne Wise [facility] D-DIMER 2023-02-15 19:55:00 Leeanne Wise [facility] URINALYSIS 2023-02-15 19:50:00 Leeanne Wise [facility] RAPID INFLUENZA A/B 2023-02-15 19:50:00 Leeanne Wise [facility] COVID-19 (ID NOW RAPID TESTING) 2023-02-15 19:50:00 Leeanne Wise [facility] XR CHEST 1 VW 2023-02-15 19:38:00 Leeanne Wise [facility] ASSIGNMENT OF BENEFITS 2023-02-15 19:26:58 Docto r Unassigned, [place] [facility] HB ECG ROUTINE & RHYTHM STRIP 2023-02-15 19:07:40 Leeanne Wise [facility] NOTICE OF PRIVACY PRACTICES 2023-02-15 18:24:07 Doctor Unassigned, [place] [facility] CONSENT/REFUSAL FOR DIAGNOSIS AND TREATMENT 2023-02-15 18:23:04 Doctor Unassigned, [place] [facility] TROPONIN I 2022-01-10 00:32:00 Melida Longoria [facility] TROPONIN I 2022-01-09 22:17:00 Melida Longoria [facility] BASIC METABOLIC PANEL (NA, K, CL, CO2, GLUCOSE, BUN, CREATININE, CA) 2022-01-09 22:17:00 Melida Longoria [facility] CBC WITH DIFF 2022-01-09 22:17:00 [facility] N-TERMINAL PRO-BNP 2022-01-09 22:17:00 Melida Longoria [facility] XR CHEST 1 VW 2022-01-09 22:11:00 Melida [facility] CONSENT/REFUSAL FOR DIAGNOSIS AND TREATMENT 2022-01-09 21:34:15 Doctor Unassigned, [place] [facility] TROPONIN I 2021-12-14 05:39:00 Wil [facility] XR CHEST 1 VW 2021-12-14 04:39:00 Wil Mcqueen [facility] POCT TEST 2021-12-14 04:20:00 Wil Mcqueen [facility] URINALYSIS 2021-12-14 03:57:00 Wil Mcqueen [facility] [facility] LIPASE 2021-12-14 03:43:00 Wil Mcqueen [facility] TROPONIN I 2021-12-14 03:43:00 Wil Mcqueen [facility] FREE T4 2021-12-14 03:43:00 Wil Mcqueen [facility] THYROID STIMULATING HORMONE 2021-12-14 03:43:00 Wil Mcqueen [facility] COMP. METABOLIC PANEL ([id number]) 2021-12-14 03:43:00 Wil Mcqueen [facility] CBC WITH DIFF 2021-12-14 03:43:00 [facility] 2021-12-14 03:43:00 Wil Mcqueen [facility] CONSENT/REFUSAL FOR DIAGNOSIS AND TREATMENT 2021-12-14 02:58:21 Doctor Unassigned, [place] [facility] TROPONIN I 2021-11-12 03:04:00 Apple Wang U [facility] POCT TEST 2021-11-12 02:56:00 Tra Wang [facility] URINE DRUG (IMMUNOASSAY) - COMPREHENSIVE DRUG SCREEN 2021-11-12 02:30:00 Apple Wang [facility] URINALYSIS 2021-11-12 02:30:00 Apple Wang U [facility] XR CHEST 2 VW 2021-11-12 01:45:03 Apple Wang [facility] LIPASE 2021-11-12 01:34:00 Apple Wang U [facility] TROPONIN I 2021-11-12 01:34:00 Apple Wang U [facility] COMP. METABOLIC PANEL (02515) 2021-11-12 01:34:00 Apple Wang [facility] CBC WITH DIFF 2021-11-12 01:34:00 Apple Wang [facility] N-TERMINAL PRO-BNP 2021-11-12 01:34:00 Mckinley Wang [facility] CONSENT/REFUSAL FOR DIAGNOSIS AND TREATMENT 2021-11-12 00:36:34 Doctor Unassigned, [place] [facility] CT ABDOMEN PELVIS W CONTRAST 2021-09-12 02:49:43 Apple Wang [facility] COVID-19 (ID NOW RAPID TESTING) 2021-09-12 02:23:00 Apple Wang [facility] POCT TEST 2021-09-12 02:21:00 Tra Wang [facility] POCT TEST 2021-09-12 01:45:00 Bob Garcia [facility] URINALYSIS 2021-09-12 01:43:00 Bob Garcia [facility] LIPASE 2021-09-12 01:40:00 Bob Garcia [facility] COMP. METABOLIC PANEL (22049) 2021-09-12 01:40:00 Bob Garcia [facility] CBC WITH DIFF 2021-09-12 01:40:00 Bob Garcia [facility] CONSENT/REFUSAL FOR DIAGNOSIS AND TREATMENT 2021-09-12 01:26:55 Doctor Unassigned, [place] [facility] XR LUMBAR SPINE 1 VW 2021-08-15 07:03:00 Angeles Garcia i [facility] URINALYSIS 2021-08-15 06:35:00 Bob Garcia [facility] POCT TEST 2021-08-15 06:35:00 Bob Garcia [facility] NOTICE OF PRIVACY PRACTICES 2021-08-15 06:01:56 Doctor Unassigned, [place] [facility] CONSENT/REFUSAL FOR DIAGNOSIS AND TREATMENT 2021-08-15 05:25:54 Doctor Unassigned, [place] [facility] TROPONIN I 2021-05-28 07:50:00 Cem Cruz [facility] D-DIMER 2021-05-28 07:05:00 Cem Cruz [facility] XR CHEST 2 VW 2021-05-28 05:46:00 Cem Cruz [facility] POCT TEST 2021-05-28 05:32:00 Cem Cruz [facility] LIPASE 2021-05-28 05:29:00 Cem Cruz [facility] TROPONIN I 2021-05-28 05:29:00 Cem Cruz [facility] COMP. METABOLIC PANEL (14620) 2021-05-28 05:29:[facility] 2021-05-28 05:29:00 Cem Cruz [facility] N-TERMINAL PRO-BNP 2021-05-28 05:29:00 Cem Cruz [facility] COVID-19 (ID NOW RAPID TESTING) 2021-05-28 05:29:00 Anthony [facility] TROPONIN I 2021-04-08 10:01:00 Apple Page [facility] BASIC METABOLIC PANEL (NA, K, CL, CO2, GLUCOSE, BUN, CREATININE, CA) 2021-04-08 10:01:00 Apple Page [facility] CBC WITH DIFF 2021-04-08 10:01:00 Apple Page [facility] TROPONIN I 2021-04-08 04:12:00 Apple Page [facility] XR CHEST 1 VW 2021-04-07 22:33:33 Roberto Richards [facility] LIPASE 2021-04-07 21:52:00 Roberto [facility] MAGNESIUM 2021-04-07 21:52:00 Apple Page [facility] TROPONIN I 2021-04-07 21:52:00 Roberto Richards [facility] THYROID STIMULATING HORMONE 2021-04-07 21:52:00 [facility]. METABOLIC PANEL (05057) 2021-04-07 21:52:00 Roberto Richards [facility] LIPID PANEL (66996)(TOTAL CHOLESTEROL, TRIGLYCERIDES, HDL) 2021-04-07 21:52:00 [facility] WITH DIFF 2021-04-07 21:52:00 Roberto Richards [facility] GLYCOSYLATED HEMOGLOBIN (A1C) 2021-04-07 21:52:00 Apple Page [facility] PROTHROMBIN TIME / INR 2021-04-07 21:52:00 Jalen Richards [facility] ACTIVATED PARTIAL THRMPLAS MARCIO 2021-04-07 21:52[facility]00 [facility] 2021-04-07 21:52:00 Roberto Richards [facility] COVID-19 (ID NOW RAPID TESTING) 2021-04-07 21:51:00 [facility] & RHYTHM STRIP 2021-04-07 21:38:41 Maurice [facility] CONSENT/REFUSAL FOR DIAGNOSIS AND TREATMENT 2021-04-07 21:17:47 Doctor Unassigned, [place] [facility] CT ABDOMEN PELVIS WO CONTRAST 2021-01-12 08:10:17 [facility] 2021-01-12 08:02:00 Jaquan Narvaez [facility] URINALYSIS 2021-01-12 07:58:00 Klaudia Narvaez [facility] COMP. METABOLIC PANEL (17199) 2021-01-12 07:56:00 Klaudia Narvaez [facility] CBC WITH DIFF 2021-01-12 07:56:00 Klaudia Narvaez [facility] TROPONIN I 2020-12-11 00:47:00 Bal Hassan [facility] XR CHEST 1 VW 2020-12-10 22:40:57 Bal Hassan [facility] POCT TEST 2020-12-10 22:32:00 Suzanna Hassan [facility] URINALYSIS 2020-12-10 22:30:00 Bal Hassan [facility] LIPASE 2020-12-10 22:24:00 [facility] 2020-12-10 22:24:00 [facility] HEPATIC FUNCTION PANEL (49238) (ALB,T.PRO,BILI T,BU/BC,ALT,AST,ALK PHOS) 2020-12-10 22:24:00 [facility]OLIC PANEL (NA, K, CL, CO2, GLUCOSE, BUN, CREATININE, CA) 2020-12-10 22:24:00 [facility] WITH DIFF 2020-12-10 22:24:00 Bal Hassan [facility] D-DIMER 2020-12-10 22:24:00 [facility] N-TERMINAL PRO-BNP 2020-12-10 22:24:00 Mirtha Hassan [facility] POCT TEST 2020-12-04 21:18:00 [facility] 2020-12-04 21:17:00 Tremaine Becerra [facility] LIPASE 2020-12-04 20:20:00 Tremaine Becerra [facility] TROPONIN I 2020-12-04 20:20:00 Tremaine Becerra [facility] HEPATIC FUNCTION PANEL (50264) (ALB,T.PRO,BILI T,BU/BC,ALT,AST,ALK PHOS) 2020-12-04 20:20:00 [facility] BASIC METABOLIC PANEL (NA, K, CL, CO2, GLUCOSE, BUN, CREATININE, CA) 2020-12-04 20:20:00 [facility] CBC WITH DIFF 2020-12-04 20:20:00 Tremaine Becerra [facility] XR CHEST 1 VW 2020-12-04 20:16:54 [facility]+ VW LEFT 2020-12-04 20:16:54 Tremaine Becerra [facility] CONSENT/REFUSAL FOR DIAGNOSIS AND TREATMENT 2020-12-04 19:43:45 Doctor Unassigned, [place] [facility] XR CHEST 1 VW 2020-11-04 02:24:02 Bob Garcia [facility] URINE DRUG (IMMUNOASSAY) - 4 ER PANEL 2020-11-04 02:19:00 Bob Garcia [facility] URINALYSIS 2020-11-04 02:19:00 Bob Garcia [facility] LIPASE 2020-11-04 02:16:00 Parvez [facility] TROPONIN I 2020-11-04 02:16:00 Bob Garcia [facility] COMP. METABOLIC PANEL (51771) 2020-11-04 02:16:00 Bob Garcia [facility] CBC WITH DIFF 2020-11-04 02:16:00 Bob Garcia [facility] PROTHROMBIN TIME / INR 2020-11-04 02:16:00 Lucia Garcia [facility] ACTIVATED PARTIAL THRMPLAS MARCIO 2020-11-04 02:16:00 Bob Garcia [facility] CONSENT/REFUSAL FOR DIAGNOSIS AND TREATMENT 2020-11-04 01:11:16 Doctor Unassigned, [place] [facility] XR CHEST 1 VW 2020-09-17 17:32:21 Leeanne Wise [facility] RAPID STREP SCREEN FOR GROUP A 2020-09-17 16:31:00 Leeanne Wise [facility] COVID-19 (ID NOW RAPID TESTING) 2020-09-17 16:31:00 Leeanne Wise [facility] NOTICE OF PRIVACY PRACTICES 2020-09-17 15:47:38 Doctor Unassigned, [place] [facility] CONSENT/REFUSAL FOR DIAGNOSIS AND TREATMENT 2020-09-17 15:47:07 Doctor Unassigned, [place] [facility] XR FOREARM 2 VW LEFT 2020-09-07 06:59:53 Saleem Edward [facility] XR HAND 3+ VW LEFT 2020-09-07 06:59:53 Saleem Edward [facility] NOTICE OF PRIVACY PRACTICES 2020-09-07 06:06:09 Doctor Unassigned, [place] [facility] CONSENT/REFUSAL FOR DIAGNOSIS AND TREATMENT 2020-09-07 06:03:10 Doctor Unassigned, [place] [facility] CT ABDOMEN PELVIS W CONTRAST 2020-08-28 09:16:08 Bob Garcia [facility] POCT TEST 2020-08-28 08:45:00 Bob Garcia [facility] URINALYSIS 2020-08-28 08:43:00 Bob Garcia [facility] LIPASE 2020-08-28 08:09:00 Bob Garcia [facility] COMP. METABOLIC PANEL ([id number]) 2020-08-28 08:09:00 Bob Garcia [facility] CBC WITH DIFF 2020-08-28 08:09:00 Bob Garcia [facility] XR CHEST 1 VW 2020-08-14 18:10:03 Best [facility] LIPASE 2020-08-14 17:58:00 Best Taylor [facility] TROPONIN I 2020-08-14 17:58:00 Best Taylor [facility] COMP. METABOLIC PANEL ([id number]) 2020-08-14 17:58:00 Best Taylor [facility] CBC WITH DIFF 2020-08-14 17:58:00 Best Taylor [facility] URINALYSIS 2020-08-14 17:58:00 Best Taylor [facility] LACTIC ACID WHOLE BLOOD 2020-08-14 17:58:00 Sophie Taylor [facility] ADC / LCC - DRUG SCREEN TRIAGE 2020-08-14 17:58:00 Best Taylor [facility] CONSENT/REFUSAL FOR DIAGNOSIS AND TREATMENT 2020-08-14 17:33:16 Doctor Unassigned, [place] [facility] CT ABDOMEN PELVIS WO CONTRAST 2020-08-11 04:11:07 Best Taylor [facility] XR CHEST 1 VW 2020-08-11 03:56:48 Best Taylor [facility] POCT TEST 2020-08-11 03:10:00 Best Taylor [facility] BLOOD CULTURE SCREEN 2020-08-11 02:01:00 Best Taylor [facility] BLOOD CULTURE SCREEN 2020-08-11 01:45:00 Best Taylor [facility] LIPASE 2020-08-11 01:45:00 Best Taylor [facility] TROPONIN I 2020-08-11 01:45:00 Best Taylor [facility] HEPATIC FUNCTION PANEL ([id number]) (ALB,T.PRO,BILI T,BU/BC,ALT,AST,ALK PHOS) 2020-08-11 01:45:00 Best Taylor [facility] BASIC METABOLIC PANEL (NA, K, CL, CO2, GLUCOSE, BUN, CREATININE, CA) 2020-08-11 01:45:00 Best Taylor [facility] CBC WITH DIFF 2020-08-11 01:45:00 Best Taylor [facility] URINALYSIS 2020-08-11 01:45:00 Best Taylor [facility] LACTIC ACID WHOLE BLOOD 2020-08-11 01:45:00 Sophie Taylor [facility] COVID-19 (ID NOW RAPID TESTING) 2020-08-11 01:45:00 Best Taylor [facility] CONSENT/REFUSAL FOR DIAGNOSIS AND TREATMENT 2020-08-11 00:12:54 Doctor Unassigned, [place] [facility] XR FOREARM 2 VW LEFT 2020-08-07 14:03:06 Unique Richards [facility] COVID-19 (ID NOW RAPID TESTING) 2020-08-07 13:35:00 Roberto Richards [facility] NOTICE OF PRIVACY PRACTICES 2020-08-07 13:13:25 Doctor Unassigned, [place] [facility] CONSENT/REFUSAL FOR DIAGNOSIS AND TREATMENT 2020-08-07 13:11:06 Doctor Unassigned, [place] [facility] CONSENT/REFUSAL FOR DIAGNOSIS AND TREATMENT 2020-08-07 13:10:57 Doctor Unassigned, [place] [facility] TROPONIN I 2020-07-01 02:03:00 Abdias Robertson [facility] POCT TEST 2020-07-01 00:51:00 Jessica Cox [facility] URINALYSIS 2020-07-01 00:48:00 Abdias Robertson [facility] CBC WITH DIFF 2020-07-01 00:12:00 Abdias Robertson [facility] EXTRA TUBE LT. BLUE 2020-07-01 00:12:00 Abdias Robertson [facility] LIPASE 2020-07-01 00:09:00 Abdias Robertson [facility] TROPONIN I 2020-07-01 00:09:00 Abdias Robertson [facility] BASIC METABOLIC PANEL (NA, K, CL, CO2, GLUCOSE, BUN, CREATININE, CA) 2020-07-01 00:09:00 Abdias Robertson [facility] ADC,CLC OR LCC ONLY - INFLUENZA A & B DIRECT ANTIGEN 2020-07-01 00:09:00 Abdias Robertson [facility] N-TERMINAL PRO-BNP 2020-07-01 00:09:00 Abdias Robertson [facility] XR CHEST 1 VW 2020-07-01 00:07:07 Abdias Robertson [facility] NOTICE OF PRIVACY PRACTICES 2020-06-30 23:27:46 Doctor Unassigned, [place] [facility] CT CERVICAL SPINE WO CONTRAST 2020-06-28 23:12:00 Klaudia Narvaez [facility] CONSENT/REFUSAL FOR DIAGNOSIS AND TREATMENT 2020-06-28 21:52:44 Doctor Unassigned, [place] [facility] POCT TEST 2020-06-13 01:50:00 Leeanne Wise [facility] XR CHEST 1 VW 2020-06-13 01:18:17 Leeanne Wise [facility] URINALYSIS 2020-06-13 00:34:00 Leeanne Wise [facility] COVID-19 (ID NOW RAPID TESTING) 2020-06-13 00:34:00 Leeanne Wise [facility] LIPASE 2020-06-13 00:33:00 Leeanne Wise [facility] TROPONIN I 2020-06-13 00:33:00 Leeanne Wise [facility] HEPATIC FUNCTION PANEL ([id number]) (ALB,T.PRO,BILI T,BU/BC,ALT,AST,ALK PHOS) 2020-06-13 00:33:00 Leeanne Wise [facility] BASIC METABOLIC PANEL (NA, K, CL, CO2, GLUCOSE, BUN, CREATININE, CA) 2020-06-13 00:33:00 Leeanne Wise [facility] CBC WITH DIFF 2020-06-13 00:33:00 Leeanne Wise [facility] D-DIMER 2020-06-13 00:33:00 Leeanne Wise [facility] CONSENT/REFUSAL FOR DIAGNOSIS AND TREATMENT 2020-06-12 23:27:48 Doctor Unassigned, [place] [facility] COVID-19 (ID NOW RAPID TESTING) 2020-05-16 23:50:00 Bushra Rios [facility] LIPASE 2020-05-16 23:21:00 [facility] ([id number]) (ALB,T.PRO,BILI T,BU/BC,ALT,AST,ALK PHOS) 2020-05-16 23:21:00 Bushra Rios [facility] BASIC METABOLIC PANEL (NA, K, CL, CO2, GLUCOSE, BUN, CREATININE, CA) 2020-05-16 23:21:00 Bushra Rios [facility] CBC WITH DIFF 2020-05-16 23:21:00 Bushra Rios U [facility] ACETAMINOPHEN 2020-05-15 07:42:00 Roberto Richards [facility] CT ABDOMEN PELVIS W CONTRAST 2020-05-15 06:56:53 Roberto Richards [facility] CT HEAD WO CONTRAST 2020-05-15 06:56:27 Alberta Richards [facility] POCT TEST 2020-05-15 05:53:00 Alberta Richards [facility] LIPASE 2020-05-15 05:52:00 Roberto Richards [facility] HEPATIC FUNCTION PANEL ([id number]) (ALB,T.PRO,BILI T,BU/BC,ALT,AST,ALK PHOS) 2020-05-15 05:52:00 Roberto Richards [facility] BASIC METABOLIC PANEL (NA, K, CL, CO2, GLUCOSE, BUN, CREATININE, CA) 2020-05-15 05:52:00 Roberto Richards [facility] ETHANOL 2020-05-15 05:52:00 Roberto Richards [facility] CBC WITH DIFF 2020-05-15 05:52:00 Roberto Richards [facility] PROTHROMBIN TIME / INR 2020-05-15 05:52:00 Jalen Richards [facility] ACTIVATED PARTIAL THRMPLAS MARCIO 2020-05-15 05:52:00 Roberto Richards [facility] URINALYSIS 2020-05-15 05:52:00 [facility] ADC / LCC - DRUG SCREEN TRIAGE 2020-05-15 05:52:00 Roberto Richards [facility] NOTICE OF PRIVACY PRACTICES 2020-05-15 05:12:38 Doctor Unassigned, [place] [facility] CONSENT/REFUSAL FOR DIAGNOSIS AND TREATMENT 2020-05-15 05:12:26 Doctor Unassigned, [place] [facility] Encounters Start Date/Time End Date/Time Encounter Type Admission Type Attending [facility] Facility Care Department Encounter ID Source 2025-03-30 00:00:00 2025-03-30 00:00:00 Outpatient GISELLE OSORIO [id number] Kellee Buckley 2025-03-27 14:25:00 2025-03-27 15:26:00 Emergency ER SHERIDAN MCMANUS [facility] [id number] [facility] 2025-03-27 14:25:00 2025-03-27 15:26:00 Departed Emergency Room [facility] [id number] [facility] 2025-03-25 17:28:00 2025-03-25 18:28:00 Emergency X THAI GALO JOSEPH [facility] ERT [id number] [facility] 2025-03-10 00:00:00 2025-03-10 13:04:44 Transition of Care Shelley Kirkland Marisa M [address] [id number] [facility] 2025-03-07 13:54:00 2025-03-08 13:00:00 Hospital Encounter X ANTHONY ROMAN [facility] ALTHEA [id number] [facility] 2025-03-05 18:14:00 2025-03-05 20:55:00 Departed Emergency Room [facility] [id number] [facility] 2025-03-05 18:14:00 2025-03-05 20:55:00 Emergency ER RYAN MIRANDA [facility] [id number] [facility] 2025-03-04 16:32:00 2025-03-04 20:18:00 Emergency X RAMIREZ CALDERON [facility] ERT [id number] [facility] 2025-03-02 00:00:00 2025-03-02 00:00:00 Outpatient VAHE DURAND [id number] [facility] 2025-02-15 10:00:00 2025-02-15 10:00:00 Outpatient CHRISTINA PAGE KELLEE KELLEE [id number] [facility] 2025-01-22 10:20:00 2025-01-22 10:20:00 Outpatient CYNTHIA ROMEO KELLEE DORMAN [id number] [facility] 2025-01-16 00:00:00 2025-01-16 00:00:00 Outpatient JYOTI RIDDHI KELLEE DORMAN [id number] [facility] 2025-01-07 15:00:00 2025-01-07 15:00:00 Outpatient DURANDVAHE CHOWDARY KELLEE DORMAN [id number] [facility] 2025-01-07 00:00:00 2025-01-07 00:00:00 Outpatient NITZANAY BENTLEY KELLEE DORMAN [id number] [facility] 2024-12-20 00:00:00 2024-12-20 00:00:00 Outpatient RIDDHI MONTES KELLEE DORMAN [id number] [facility] 2024-12-17 10:00:00 2024-12-17 10:00:00 Outpatient JODEEPASHA NEO YIP KELLEE DORMAN [id number] [facility] 2024-12-16 13:30:00 2024-12-16 13:30:00 Outpatient RIDDHI MONTES KELLEE DORMAN [id number] [facility] 2024-12-15 21:04:00 2024-12-15 22:54:00 Emergency BOB WAYNE WAKILI [facility] ERT [id number] [facility] 2024-12-14 13:31:00 2024-12-14 16:50:00 Emergency Kiran Rivero [facility] [id number] [facility] 2024-12-10 18:18:00 2024-12-10 21:28:00 Emergency ER ARELIS KERN [facility] [id number] [facility] 2024-12-10 18:18:00 2024-12-10 21:28:00 Departed Emergency Room [facility] [id number] [facility] 2024-12-09 00:00:00 2024-12-10 02:04:16 Orders Only Doctor Unassigned, [place] Doctor Unassigned, [place] [facility] [place] [id number] [facility] 2024-12-08 19:58:00 2024-12-08 21:51:00 Emergency X ROBERTO RICHARDS DONNE[facility] [id number] [facility] 2024-12-02 13:30:00 2024-12-02 13:30:00 Outpatient RIDDHI MONTES [id number] [facility] 2024-12-02 09:30:00 2024-12-02 09:30:00 Outpatient CATHY STRICKLAND [id number] [facility] 2024-12-02 00:00:00 2024-12-02 00:00:00 Outpatient MD KELLEE CHOI [id number] [facility] 2024-12-02 00:00:00 2024-12-02 00:00:00 Outpatient RIDDHI MONTES [id number] [facility] 2024-12-01 00:00:00 2024-12-01 09:53:20 Transition of Care Piper Mercedes Antoinette [address] [id number] [facility] 2024-11-26 17:54:00 2024-11-27 13:31:00 Hospital Encounter X ALEXX KWOK [facility] ALTHEA [id number] [facility] 2024-11-27 00:00:00 2024-11-27 00:00:00 Outpatient KELLEE DORMAN [id number] [facility] 2024-11-20 00:00:00 2024-11-20 00:00:00 Outpatient JYOTI RIDDHI DORMAN [id number] [facility] 2024-11-18 13:15:00 2024-11-18 13:15:00 Outpatient TATIANNA MAN KELLEE DORMAN [id number] [facility] 2024-11-16 00:00:00 2024-11-16 00:00:00 Outpatient JYOTI RIDDHI DORMAN [id number] [facility] 2024-11-15 11:45:00 2024-11-15 15:15:00 Emergency ER DEEPAROSARIODmitriSHERIDAN [facility] [id number] [facility] 2024-11-15 11:45:00 2024-11-15 15:15:00 Departed Emergency Room [facility] [id number] [facility] 2024-11-15 10:15:00 2024-11-15 10:15:00 Outpatient SARAH SHULTZ KELLEE DORMAN [id number] [facility] 2024-11-14 20:45:00 2024-11-14 22:18:00 Emergency X BUSHRA RIOS SANDRA [facility] ERT [id number] [facility] 2024-11-14 20:45:00 2024-11-14 22:18:00 Emergency X BUSHRA RIOS SANDRA [facility] ERT [id number] [facility] 2024-11-14 00:00:00 2024-11-14 00:00:00 Outpatient JYOTI RIDDHI KELLEE DORMAN [id number] [facility] 2024-11-10 19:56:00 2024-11-11 01:04:00 Emergency X BOB GARCIA WAKILI [facility] ERT [id number] [facility] 2024-11-10 19:56:00 2024-11-11 01:04:00 Emergency Frederick Garciaamanda Shankar [facility] [id number] [facility] 2024-11-10 13:30:00 2024-11-10 13:30:00 Outpatient MARLINLee RIDDHI KELLEE DORMAN [id number] [facility] 2024-11-10 13:30:00 2024-11-10 13:30:00 Outpatient RIDDHI MONTES [id number] [facility] 2024-11-05 00:00:00 2024-11-05 09:33:29 Transition of Care Piper Mercedes Antoinette [address] [id number] [facility] 2024-10-31 21:29:00 2024-11-04 15:00:00 Inpatient X KAUR SANDRA BASHAR [facility] [id number] [facility] 2024-10-31 21:29:00 2024-11-04 15:00:00 Hospital Encounter Jaclynchuy KarlaZay Quintana Bashar Khan, Rizwan [facility] 1.2840.114 350.1.13.10 4.2.7.2.686 [id number] [facility] 2024-11-03 18:20:00 2024-11-03 19:20:00 Surgery Dane Jurado [facility] 1.2.840.114 350.1.13.10 4.2.7.2.686 [id number] [facility] 2024-11-02 00:00:00 2024-11-02 00:00:00 Outpatient KELLEE DORMAN [id number] [facility] 2024-11-02 00:00:00 2024-11-02 00:00:00 Outpatient KELLEE DORMAN [id number] [facility] 2024-10-28 14:15:00 2024-10-28 14:15:00 Outpatient TATIANNA MAN KELLEE DORMAN [id number] [facility] 2024-10-26 11:30:00 2024-10-26 11:30:00 Outpatient FLORINDA REYES KELLEE DORMAN [id number] [facility] 2024-10-23 20:18:00 2024-10-23 23:54:00 Emergency X JUANJOSE BARKER BRENT [facility] ERT [id number] [facility] 2024-10-23 20:18:00 2024-10-23 23:54:00 Emergency Juanjose Barker [facility] 1.2.840.114 350.1.13.10 4.2.7.2.686 [id number] [facility] 2024-10-23 10:30:00 2024-10-23 10:30:00 Outpatient RIDDHI MONTES [id number] [facility] 2024-10-19 00:00:00 2024-10-19 00:00:00 Outpatient RIDDHI MONTES [id number] [facility] 2024-10-13 23:15:00 2024-10-14 19:39:00 Inpatient ER SELENA [facility] [id number] [facility] 2024-10-13 23:15:00 2024-10-14 19:39:00 Discharged Inpatient (obs) [facility] [id number] [facility] 2024-10-14 00:00:00 2024-10-14 00:00:00 Outpatient KELLEE DORMAN [id number] [facility] 2024-10-12 22:30:2024-10-13 02:45:00 Emergency X BOB GARCIA WAKILI [facility] ERT [id number] [facility] 2024-10-12 22:30:00 2024-10-13 02:45:00 Emergency Bob Garcia [facility] 1.2.840.114 350.1.13.10 4.2.7.2.686 [id number] [facility] 2024-09-23 13:30:00 2024-09-23 13:30:00 Outpatient GISELLE OSORIO [id number] [facility] 2024-09-23 00:00:00 2024-09-23 00:00:00 Outpatient KELLEE DORMAN [id number] [facility] 2024-09-17 00:00:00 2024-09-17 00:00:00 Outpatient MD KELLEE CHOI [id number] [facility] 2024-09-15 11:15:00 2024-09-15 11:15:00 Outpatient KELLEE DORMAN [id number] [facility] 2024-09-15 10:45:00 2024-09-15 10:45:00 Outpatient KELLEE DORMAN [id number] [facility] 2024-09-15 10:15:00 2024-09-15 10:15:00 Outpatient KELLEE DORMAN [id number] [facility] 2024-09-15 07:30:00 2024-09-15 07:30:00 Outpatient KELLEE DORMAN [id number] [facility]ellee Sey[facility] 2024-09-15 00:00:00 2024-09-15 00:00:00 Outpatient GISELLE OSORIO [id number] [facility]ellee Se[facility]ra 2024-09-06 00:00:00 2024-09-06 00:00:00 Outpatient RIDDHI MONTES [id number] [facility] Se[facility] 2024-09-01 00:00:00 2024-09-01 00:00:00 Outpatient RIDDHI MONTES [id number] [facility] 2024-08-27 00:00:00 2024-08-27 00:00:00 Outpatient SMITHCONRADO KELLEE DORMAN [id number] [facility] 2024-08-20 16:45:00 2024-08-20 16:45:00 Outpatient JÚNIOR FARRELL [facility] [id number] [facility] 2024-08-18 10:00:00 2024-08-18 10:00:00 Outpatient JYOTI RIDDHI DORMAN [id number] [facility] 2024-08-05 15:30:00 2024-08-05 15:30:00 Outpatient SMITHCONRADO KELLEE DORMAN [id number] [facility] 2024-08-03 00:00:00 2024-08-03 00:00:00 Outpatient JYOTI RIDDHI DORMAN [id number] [facility] 2024-07-18 22:48:00 2024-07-19 01:24:00 Emergency X Saleem [facility] [id number] [facility] 2024-07-18 22:48:00 2024-07-19 01:24:00 Emergency Saleem Edward [facility] 1.2.840.114 350.1.13.10 4.2.7.2.686 [id number] [facility] 2024-07-15 00:00:00 2024-07-15 00:00:00 Outpatient RIDDHI MONTES [id number] [facility] 2024-07-10 00:00:00 2024-07-10 00:00:00 Outpatient RIDDHI MONTES [id number] [facility] 2024-07-09 00:00:00 2024-07-09 00:00:00 Outpatient RADIOLOGY, DEPT KELLEE DORMAN [id number] [facility] 2024-07-09 00:00:00 2024-07-09 00:00:00 Outpatient RADIOLOGY, DEPT KELLEE DORMAN [id number] [facility] 2024-07-07 00:00:00 2024-07-07 00:00:00 Outpatient MD KELLEE CHOI [id number] [facility] 2024-07-06 07:00:00 2024-07-06 07:00:00 Outpatient KELLEE DORMAN [id number] [facility] 2024-07-06 00:00:00 2024-07-06 00:00:00 Outpatient GISELLE OSORIO [id number] [facility] 2024-07-03 19:56:00 2024-07-04 01:32:00 Emergency X VINCENT, SHINTA VINCENT, SHINTA [facility] ERT [id number] [facility] 2024-07-03 19:56:00 2024-07-04 01:32:00 Emergency Vincent, Shinta [facility] 1.2.840.114 350.1.13.10 4.2.7.2.686 [id number] [facility] 2024-06-21 02:04:00 2024-06-21 02:59:00 Emergency X VINCENT, SHINTA VINCENT, SHINTA [facility] ERT [id number] [facility] 2024-06-21 02:04:00 2024-06-21 02:59:00 Emergency Vincent, Shinta [facility] 1.2.840.114 350.1.13.10 4.2.7.2.686 [id number] [facility] 2024-06-20 00:00:00 2024-06-20 00:00:00 Outpatient RIDDHI MONTES [id number] [facility] 2024-06-18 00:00:00 2024-06-18 00:00:00 Outpatient GISELLE OSORIO [id number] [facility] 2024-06-17 15:30:00 2024-06-17 15:30:00 Outpatient KELLEE DORMAN [id number] [facility] 2024-06-14 21:28:00 2024-06-15 00:28:00 Emergency SANDY GONZALEZ SHINTA [facility] ERT [id number] [facility] 2024-06-14 21:28:00 2024-06-15 00:28:00 Emergency Sandy Garcia [facility] 1.2.840.114 350.1.13.10 4.2.7.2.686 [id number] [facility] 2024-06-06 21:56:00 2024-06-07 02:40:00 Emergency X BOB GARCIA WAKILI [facility] E[facility] [id number] [facility] 2024-06-06 21:56:00 2024-06-07 02:40:00 Emergency Bob Garcia [facility] 1.2.840.114 350.1.13.10 4.2.7.2.686 [id number] [facility] 2024-06-02 00:00:00 2024-06-02 00:00:00 Outpatient RIDDHI MONTES [id number] [facility] 2024-05-28 13:00:00 2024-05-28 13:00:00 Outpatient GISELLE OSORIO [id number] [facility] 2024-05-20 00:00:00 2024-05-20 00:00:00 Outpatient RIDDHI MONTES [id number] [facility] 2024-05-19 11:44:00 2024-05-19 13:35:00 Emergency X RAFAL WRIGHT [facility] ERT [id number] [facility] 2024-05-19 11:44:00 2024-05-19 13:35:00 Emergency KenishaRafal [facility] 1.2.840.114 350.1.13.10 4.2.7.2.686 [id number] [facility] 2024-05-18 11:15:00 2024-05-18 11:15:00 Outpatient LAB90 KELLEE DORMAN [id number] [facility] 2024-05-18 10:30:00 2024-05-18 10:30:00 Outpatient RIDDHI MONTES [id number] [facility]ellee [facility] 2024-05-17 18:30:00 2024-05-17 22:19:00 Emergency Tammy Roy Radha [facility] 1.2.840.114 350.1.13.10 4.2.7.2.686 [id number] [facility] 2024-05-13 18:04:00 2024-05-13 20:42:00 Emergency ER ARELIS KERN [facility] [id number] [facility] 2024-05-12 00:00:00 2024-05-12 00:00:00 Outpatient RIDDHI MONTES [id number] [facility] 2024-05-07 18:47:00 2024-05-07 21:36:00 Emergency Saleem Edward [facility] 1.2.840.114 350.1.13.10 4.2.7.2.686 [id number] [facility] 2024-04-22 09:15:00 2024-04-22 09:15:00 Outpatient FARTUN GILLESPIE [id number] [facility] 2024-04-15 10:30:00 2024-04-15 10:30:00 Outpatient RIDDHI MONTES [id number] [facility] 2024-04-12 00:00:00 2024-04-12 00:00:00 Outpatient RIDDHI MONTES [id number] [facility] 2024-04-10 16:20:00 2024-04-10 18:53:00 Emergency ER TAVARES MG JR [facility] [id number] [facility] 2024-04-10 16:20:00 2024-04-10 18:53:00 Departed Emergency Room [facility] [id number] [id number] [facility] 2024-04-08 17:37:00 2024-04-08 20:38:00 Emergency Florentino Jacque [facility] 1.2.840.114 350.1.13.10 4.2.7.2.686 [id number] [facility] 2024-04-08 00:00:00 2024-04-08 00:00:00 Outpatient RIDDHI MONTES [id number] [facility] 2024-03-12 00:00:00 2024-03-12 00:00:00 Outpatient RIDDHI MONTES [id number] [facility] 2024-03-06 11:00:00 2024-03-06 11:00:00 Outpatient RIDDHI MONTES [id number] [facility] 2024-02-06 11:00:00 2024-02-06 11:00:00 Outpatient GISELLE OSORIO [id number] [facility] 2024-02-06 10:40:00 2024-02-06 10:40:00 Outpatient KELLEE DORMAN [id number] [facility] 2024-02-06 00:00:00 2024-02-06 00:00:00 Outpatient RIDDHI MONTES [id number] [facility] 2024-02-05 00:00:00 2024-02-05 00:00:00 Outpatient RIDDHI MONTES [id number] [facility] 2024-01-14 09:30:00 2024-01-14 09:30:00 Outpatient RIDDHI MONTES [id number] [facility] 2024-01-09 00:00:00 2024-01-09 00:00:00 Outpatient RIDDHI MONTES [id number] [facility] 2024-01-06 00:00:00 2024-01-06 00:00:00 Outpatient RIDDHI MONTES KELLEE DORMAN [id number] [facility] 2024-01-03 00:00:00 2024-01-03 00:00:00 Outpatient RIDDHI MONTES KELLEE DORMAN [id number] [facility] 2024-01-02 14:00:00 2024-01-02 14:00:00 Outpatient RIDDHI MONTES KELLEE DORMAN [id number] [facility] 2023-12-13 09:30:00 2023-12-13 09:30:00 Outpatient ZACHARY MONTESSharlene DORMAN [id number] [facility] 2023-12-09 00:00:00 2023-12-09 00:00:00 Outpatient RIDDHI MONTES KELLEE DORMAN [id number] [facility] 2023-12-05 00:00:00 2023-12-05 00:00:00 Outpatient JYOTI, RIDDHI KELLEE DORMAN [id number] [facility] 2023-12-03 11:45:00 2023-12-03 11:45:00 Outpatient LABGerman KELLEE DORMAN [id number] Kellee Seybold 2023-12-03 11:00:00 2023-12-03 11:00:00 Outpatient RIDDHI MONTES KELLEE DORMAN [id number] [facility] Sey[facility] 2023-11-26 00:00:00 2023-11-26 00:00:00 Outpatient RIDDHI MONTES KELLEE DORMAN [id number] [facility] Seybold 2023-10-31 00:00:00 2023-10-31 00:00:00 Outpatient GIEFRAIN DORMAN [id number] [facility] Sey[facility] 2023-10-31 00:00:00 2023-10-31 00:00:00 Outpatient GIEFRAIN DORMAN [id number] [facility]ellee Sey[facility] 2023-10-29 14:15:00 2023-10-29 14:15:00 Outpatient LAB90 KELLEE DORMAN [id number] [facility]ellee Seybold 2023-10-29 13:30:00 2023-10-29 13:30:00 Outpatient RIDDHI MONTES [id number] [facility] 2023-10-10 21:31:00 2023-10-11 00:43:00 Emergency X BOB GARCIA [facility] ERT [id number] [facility] 2023-10-10 21:31:00 2023-10-11 00:43:00 Emergency Bob Garcia [facility] 1.2.840.114 350.1.13.10 4.2.7.2.686 [id number] [facility] 2023-08-31 18:02:00 2023-08-31 22:40:00 Emergency ER SHERIDAN MCMANUS [facility] [id number] [facility] 2023-08-31 18:02:00 2023-08-31 22:40:00 emergency [facility] [id number] 2023-07-01 19:50:00 2023-07-01 22:59:00 Emergency X ROBERTO RICHARDS [facility] ERT [id number] [facility] 2023-07-01 19:50:00 2023-07-01 22:59:00 Emergency Roberto Richards [facility] 1.2.840.114 350.1.13.10 4.2.7.2.686 [id number] [facility] 2023-06-04 23:37:00 2023-06-06 13:30:00 Inpatient ER SHAN BUSCH [facility] [id number] [facility] 2023-06-04 23:37:00 2023-06-06 13:30:00 observatio n encounter [facility] [id number] [facility] [id number] 24 2023-05-11 01:16:00 2023-05-13 17:04:00 Inpatient ER RIDDHI MYLES [facility] [id number] [facility] 2023-05-11 01:16:00 2023-05-13 17:04:00 observatio n encounter [facility] [id number] [facility] [id number] 24 2023-05-10 21:48:00 2023-05-10 21:48:00 Emergency ER AN IRIZARRY [facility] [id number] [facility] 2023-05-09 17:40:00 2023-05-09 20:30:00 Emergency X KLAUDIA NARVAEZ [facility] ERT [id number] [facility] 2023-05-09 17:40:00 2023-05-09 20:30:00 Emergency Klaudia Narvaez [facility] 1.2.840.114 350.1.13.10 4.2.7.2.686 [id number] [facility] 2023-05-05 21:31:00 2023-05-06 03:15:00 Emergency ER SHERIDAN MCMANUS [facility] [id number] [facility] 2023-05-05 21:31:00 2023-05-06 03:15:00 emergency [facility] [id number] 5eb [id number] 58 2023-04-30 17:18:00 2023-04-30 21:20:00 Emergency X KLAUDIA NARVAEZ RIJULIANE ERT [id number] [facility] 2023-04-30 17:18:00 2023-04-30 21:20:00 Emergency Klaudia Narvaez [facility] 1.2.840.114 350.1.13.10 4.2.7.2.686 [id number] [facility] 2023-04-16 20:40:00 2023-04-16 23:10:00 Emergency X ROBERTO RICHARDS [facility] ERT [id number] [facility] 2023-04-16 20:40:00 2023-04-16 23:10:00 Emergency Roberto Richards [facility] 1.2.840.114 350.1.13.10 4.2.7.2.686 [id number] [facility] 2023-04-08 17:28:00 2023-04-08 21:20:00 Emergency X Saleem EDWARD [facility] ERT [id number] [facility] 2023-04-08 17:28:00 2023-04-08 21:20:00 Emergency Saleem Edward Eleni [facility] 1.2840.114 350.1.13.10 4.2.7.2.686 [id number] [facility] 2023-03-09 20:23:00 2023-03-10 00:20:00 Emergency X ROBERTO RICHARDS [facility] ERT [id number] [facility] 2023-03-09 20:23:00 2023-03-10 00:20:00 Emergency Roberto Richards [facility] 1.2840.114 350.1.13.10 4.2.7.2.686 [id number] [facility] 2023-03-01 19:35:00 2023-03-02 01:35:00 Emergency X TRACYSONUKARLARACHELLE [facility] ERT [id number] [facility] 2023-03-01 19:35:00 2023-03-02 01:35:00 Emergency TracyBob chung [facility] 1.2840.114 350.1.13.10 4.2.7.2.686 [id number] [facility] 2023-02-17 22:58:00 2023-02-18 02:22:00 Emergency X APPLE PADGETT [facility] ERT [id number] [facility] 2023-02-17 22:58:00 2023-02-18 02:22:00 Emergency Apple Padgett S [facility] 1..840.114 350.1.13.10 4.2.7.2.686 [id number] [facility] 2023-02-15 13:46:00 2023-02-17 16:14:00 Outpatient X ZAY MONTERO [facility] ALTHEA [id number] [facility] 2023-02-15 13:46:00 2023-02-17 16:14:00 Emergency Poncegage LeeanneZay Huerta [facility] 1.2.840.114 350.1.13.10 4.2.7.2.686 [id number] [facility] 2022-01-09 16:47:00 2022-01-09 20:28:00 Emergency X MELIDA LONGORIA [facility] ERT [id number] [facility] 2022-01-09 16:47:00 2022-01-09 20:28:00 Emergency Melida Longoria [facility] 1.2.840.114 350.1.13.10 4.2.7.2.686 [id number] [facility] 2021-12-13 22:16:00 2021-12-14 02:28:00 Emergency X WIL MCQUEEN [facility] ERT [id number] [facility] 2021-12-13 22:16:00 2021-12-14 02:28:00 Emergency Wil Mcqueen [facility] 1..840.114 350.1.13.10 4.2.7.2.686 [id number] [facility] 2021-11-11 19:50:00 2021-11-11 23:17:00 Emergency X APPLE WANG [facility] ERT [id number] [facility] 2021-11-11 19:50:00 2021-11-11 23:17:00 Emergency Apple Wang [facility] 1.2.840.114 350.1.13.10 4.2.7.2.686 [id number] [facility] 2021-11-11 00:00:00 2021-11-11 00:00:00 Orders Only Doctor Unassigned, [place] [facility] 1.2.840.114 350.1.13.10 4.2.7.2.686 [id number] [facility] 2021-09-11 19:42:00 2021-09-11 23:02:00 Emergency X APPLE WANG [facility] ERT [id number] [facility] 2021-09-11 19:42:00 2021-09-11 23:02:00 Emergency Apple Wang [facility] 1.2.840.114 350.1.13.10 4.2.7.2.686 [id number] [facility] 2021-08-14 23:38:00 2021-08-15 02:29:00 Emergency X PARVEZ KARLARACHELLE [facility] ERT [id number] [facility] 2021-08-14 23:38:00 2021-08-15 02:29:00 Emergency Bob Garcia [facility] 1.2840.114 350.1.13.10 4.2.7.2.686 [id number] [facility] 2021-05-27 23:23:00 2021-05-28 04:23:00 Emergency X LIZANDROTRACYCEM [facility] ERT [id number] [facility] 2021-05-27 23:23:00 2021-05-28 04:23:00 Emergency Cem Cruz [facility] 1.2.840.114 350.1.13.10 4.2.7.2.686 [id number] [facility] 2021-04-10 00:00:00 2021-04-10 00:00:00 Transition of Care RosasShelley 1.2.840.114 350.1.13.10 4.2.7.2.686 [id number] [facility] 2021-04-07 16:30:00 2021-04-08 17:45:00 Hospital Encounter Roberto Richards Jelani [facility] 1.2.840.114 350.1.13.10 4.2.7.2.686 [id number] [facility] 2021-04-07 16:18:00 2021-04-07 16:18:00 Emergency X [facility] ERT [id number] [facility] 2021-01-12 03:01:00 2021-01-12 04:56:[address] [facility] 1.2.840.114 350.1.13.10 4.2.7.2.686 [id number] [facility] 2021-01-12 03:01:00 2021-01-12 03:01:00 Emergency X KLAUDIA NARVAEZ [facility] ERT [id number] [facility] 2020-12-10 17:12:00 2020-12-10 21:14:[address] [facility] 1.2.840.114 350.1.13.10 4.2.7.2.686 [id number] [facility] 2020-12-10 17:12:00 2020-12-10 17:12:00 Emergency X BAL HASSAN [facility] ERT [id number] [facility] 2020-12-04 14:50:00 2020-12-04 17:08:[address] [facility] 1.2.840.114 350.1.13.10 4.2.7.2.686 [id number] [facility] 2020-12-04 14:50:00 2020-12-04 17:08:00 Emergency X TREMAINE BECERRA [facility] ERT [id number] [facility] 2020-11-03 20:44:00 2020-11-03 23:34:[address] [facility] 1.2.840.114 350.1.13.10 4.2.7.2.686 [id number] [facility] 2020-11-03 20:44:00 2020-11-03 23:34:00 Emergency X DRELEEANNE ZUNIGA [facility] ERT [id number] [facility] 2020-09-19 12:32:00 2020-09-19 14:15:00 Emergency ER MORA POLLOCK [facility] [id number] 2020-09-17 09:53:00 2020-09-17 11:55:[address] [facility] 1.2.840.114 350.1.13.10 4.2.7.2.686 [id number] [facility] 2020-09-17 09:53:00 2020-09-17 11:55:00 Emergency X LEEANNE WISE [facility] ERT [id number] [facility] 2020-09-17 09:53:00 2020-09-17 11:55:[address] [facility] 1.2.840.114 350.1.13.10 4.2.7.2.686 [id number] [id number] 2020-09-07 00:37:00 2020-09-07 01:41:[address] [facility] 1.2.840.114 350.1.13.10 4.2.7.2.686 [id number] [id number] [facility] 2020-09-07 00:37:00 2020-09-07 01:41:00 Emergency X Saleem EDWARD [facility] ERT [id number] [facility] 2020-09-07 00:37:00 2020-09-07 01:41:[address] [facility] 1.2.840.114 350.1.13.10 4.2.7.2.686 [id number] [id number] 2020-09-07 00:00:00 2020-09-07 00:00:00 Orders Only Doctor Unassigned, [place] [facility] 1.2.840.114 350.1.13.10 4.2.7.2.686 [id number] [facility] 2020-09-07 00:00:00 2020-09-07 00:00:00 Orders Only Doctor Unassigned, [place] [facility] 1.2.840.114 350.1.13.10 4.2.7.2.686 [id number] 2020-08-28 01:59:00 2020-08-28 04:40:[address] [facility] 1.2.840.114 350.1.13.10 4.2.7.2.686 [id number] [id number] [facility] 2020-08-28 01:59:00 2020-08-28 04:40:[address] [facility] 1.2.840.114 350.1.13.10 4.2.7.2.686 [id number] 084 [id number] 2020-08-28 01:59:00 2020-08-28 01:59:00 Emergency BOB WAYNE [facility] ERT [id number] [facility] 2020-08-14 11:48:00 2020-08-14 13:42:[address] [facility] 1.2.840.114 350.1.13.10 4.2.7.2.686 [id number] [id number] [facility] 2020-08-14 11:48:00 2020-08-14 13:42:[address] [facility] 1.2840.114 350.1.13.10 4.2.7.2.686 [id number] [id number] 2020-08-14 11:33:00 2020-08-14 11:33:00 Emergency BEST BORGES [facility] ERT [id number] [facility] 2020-08-10 18:35:00 2020-08-11 00:05:00 Emergency Best Taylor [place] 1.2.840.114 350.1.13.10 4.2.7.2.686 [id number] [id number] [facility] 2020-08-10 18:35:00 2020-08-11 00:05:00 Emergency BOB WAYNE [facility] ERT [id number] [facility] 2020-08-10 18:35:00 2020-08-11 00:05:00 [facility] 1.2.840.114 350.1.13.10 4.2.7.2.686 [id number] [id number] 2020-08-07 07:19:00 2020-08-07 09:02:[address] [facility] 1.2.840.114 350.1.13.10 4.2.7.2.686 [id number] [id number] [facility] 2020-08-07 07:19:00 2020-08-07 09:02:[address] [facility] 1.2.840.114 350.1.13.10 4.2.7.2.686 [id number] [id number] 2020-08-07 07:12:00 2020-08-07 07:12:00 Emergency X [facility] ERT [id number] [facility] 2020-08-07 00:00:00 2020-08-07 00:00:00 Orders Only Doctor Unassigned, [place] [facility] 1.2.840.114 350.1.13.10 4.2.7.2.686 [id number] [facility] 2020-08-07 00:00:00 2020-08-07 00:00:00 Orders Only Doctor Unassigned, [place] [facility] 1.2.840.114 350.1.13.10 4.2.7.2.686 [id number] 2020-07-01 00:00:00 2020-07-01 00:00:00 Letter (Out) Sallie [facility] 1.2.840.114 350.1.13.10 4.2.7.2.686 [id number] [facility] 2020-07-01 00:00:00 2020-07-01 00:00:00 Letter (Out) Sallie, [facility] 1.2.840.114 350.1.13.10 4.2.7.2.686 [id number] 2020-06-30 17:46:00 2020-06-30 21:06:[address] [facility] 1.2.840.114 350.1.13.10 4.2.7.2.686 [id number] [facility] 2020-06-30 17:46:00 2020-06-30 21:06:00 Emergency X ABDIAS ROBERTSON [facility] ERT [id number] [facility] 2020-06-30 17:46:00 2020-06-30 21:06:[address] [facility] 1.2.840.114 350.1.13.10 4.2.7.2.686 [id number] 2020-06-28 16:00:00 2020-06-28 18:08:00 [facility].2.[facility].114 350.1.13.10 4.2.7.2.686 [id number] [facility] 2020-06-28 16:00:00 2020-06-28 18:08:[address] [facility] 1.2.840.114 350.1.13.10 4.2.7.2.686 [id number] 2020-06-28 16:00:00 2020-06-28 16:00:00 Emergency KLAUDIA MATA [facility] ERT [id number] [facility] 2020-06-14 00:00:00 2020-06-14 00:00:00 Telephone [facility] 1.2.840.114 350.1.13.10 4.2.7.2.686 [id number] [facility] 2020-06-14 00:00:00 2020-06-14 00:00:00 Telephone [facility] 1.2.840.114 350.1.13.10 4.2.7.2.686 [id number] 019 [id number] 2020-06-12 17:40:00 2020-06-12 22:05:[address] [facility] 1.2.840.114 350.1.13.10 4.2.7.2.686 [id number] 084 [id number] [facility] 2020-06-12 17:40:00 2020-06-12 22:05:[address] [facility] 1.2.840.114 350.1.13.10 4.2.7.2.686 [id number] 084 [id number] 2020-06-12 17:28:00 2020-06-12 17:28:00 Emergency X [facility] ERT [id number] [facility] 2020-05-16 17:10:00 2020-05-16 19:01:[address] [facility] 1.2.840.114 350.1.13.10 4.2.7.2.686 [id number] 084 [id number] [facility] 2020-05-16 17:10:00 2020-05-16 19:01:[address] [facility] 1.2.840.114 350.1.13.10 4.2.7.2.686 [id number] 2020-05-16 17:10:00 2020-05-16 17:10:00 Emergency X BUSHRA RIOS [facility] ERT [id number] [facility] 2020-05-14 23:18:00 2020-05-15 02:54:[address] [facility] 1.2.840.114 350.1.13.10 4.2.7.2.686 [id number] [facility] 2020-05-14 23:18:00 2020-05-15 02:54:00 Emergency Maurice [facility] 1.2.840.114 350.1.13.10 4.2.7.2.686 [id number] 2020-05-14 23:14:00 2020-05-14 23:14:00 Emergency X ROBERTO RICHARDS [facility] [id number] [facility] 2009-07-18 05:35:00 2009-07-18 09:19:00 Emergency ER SINCERE FRANK [facility] [id number] [facility] 2008-10-08 09:55:00 2008-10-08 14:19:00 Emergency ER GUMARO ALVAREZ [facility] [id number] [facility] 2008-03-26 15:21:00 2008-03-26 18:08:00 Emergency ER SARAH WILKINS [facility] [id number] [facility] 2005-05-25 06:35:00 2005-05-25 06:35:00 Outpatient LISA LUNA [facility] [id number] [facility] 2005-05-16 21:57:00 2005-05-16 23:40:00 Emergency ER JW SOLORZANO [facility] [id number] [facility] 2005-04-24 18:49:00 2005-04-24 22:40:00 Emergency ER JW SOLORZANO [facility] [id number] [facility] 2004-12-27 20:30:00 2004-12-28 01:40:00 Emergency ER MARYJO SANIA [facility] [id number] [facility] 2003-12-07 22:40:00 2003-12-08 02:48:00 Emergency ER GWENDOLYN MARTINNETH [facility] [id number] [facility] 2003-12-06 13:57:00 2003-12-06 18:30:00 Emergency ER YIN RIOS [facility] [id number] [facility] 2003-08-31 19:43:00 2003-08-31 22:55:00 Emergency ER GUMARO ALVAREZ [facility] [id number] [facility] 2003-08-22 19:26:00 2003-08-22 22:10:00 Emergency ER ALBERTO CASTLE [facility] [id number] [facility] 2002-01-30 22:41:00 2002-01-31 01:29:00 Emergency ER ANTHONY SCHNEIDER [facility] [id number] [facility] 2001-10-28 09:15:00 2001-10-28 11:25:00 Emergency ER DARCIE MCKEON [facility] [id number] [facility] 2001-04-15 19:14:00 2001-04-15 23:10:00 Emergency ER ARLETTE ROBERT [facility] [id number] [facility] 2000-12-25 21:52:00 2000-12-26 00:15:00 Emergency ER GISELA RIOS [facility] [id number] [facility] 2000-12-23 18:51:00 2000-12-23 22:00:00 Emergency ER HUGO COFFMAN [facility] [id number] [facility] 1999-10-26 21:11:00 1999-10-27 00:20:00 Emergency ER JW SOLORZANO [facility] [id number] [facility] Results Test Description Test Time Test Comments Results Result Co mments Source [facility] [id number] 22:56:57Indication: chest pain ? RL: [id number] ORDERING PHYSICIAN: ?AMNA ?ANU EVANS Comparison: Chest radiograph 11/26/2024 TECHNIQUE: Single view of the chest. FINDINGS: The lungs are clear. Cardiomediastinal silhouette is withinnormal limits. ?No pneumothorax. The bony structures are intact.[facility] Troponin [id number] 22:20:15* Test Item Value Reference Range Interpretation Comme nts TROPONIN I (test code = 5584461690) 0.005 ng/mL <=0.034 DARWIN (test code = DARWIN) [...] of biotin. Lab Interpretation (test code = 59866-0) Normal [facility]. METABOLIC PANEL (68833)2025-03-07 21:00:18* Test Item Value Reference Range Interpretation Comme nts NA (test code = 9244325365) 138 mmol/L 135-145 K (test code = 7464920462) 3.4 mmol/L 3.5-5.0 L CL (test code = 5099669878) 107 mmol/L 98-108 CO2 TOTAL (test code = 4751456727) 24 mmol/L 23-31 AGAP (test code = 0506749831) 7 2-16 BUN (test code = 5034333225) 7-23 L GLUCOSE (test code = 1325422504) 86 mg/dL 70-110 CREATININE (test code = 2160-0) 0.5 mg/dL 0.50-1.04 TOTAL BILI (test code = 6465632222) 0.2 mg/dL 0.1-1.1 CALCIUM (test code = 7433678175) 8.8 mg/dL 8.6-10.6 T PROTEIN (test code = 5831085561) 6.1 g/dL 6.3-8.2 L ALBUMIN (test code = 2886982413) 3.4 g/dL 3.5-5.0 L ALK PHOS (test code = 8272131088) 71 U/L 34-122 ALTv (test code = 1742-6) 16 U/L 5-35 AST(SGOT) (test code = 6476921461) 17 U/L 13-40 eGFR (test code = 17285-2) 117.3 mL/min/1.73m2 CKD-EPI eGFR (2020). Assuming creatinine has been stable day-to-day for at least three months, the eGFR indicates Category G1 (>= 90 mL/min/1.73 m2) Lab Interpretation (test code = 69109-0) Abnormal [facility] [id number] 20:30:28* Test Item Value Reference Range Interpretation Comme nts TROPONIN I (test code = 6240903048) 0.003 ng/mL <=0.034 DARWIN (test code = [...] of biotin. Lab Interpretation (test code = 95656-7) Normal [facility]MINAL PJW-WOT8143-21-31 20:25:47* Test Item Value Reference Range Interpretation Comme nts NT-proBNP (test code = 96407-4) 155 pg/mL <=125 DARWIN (test code = DARWIN) Result Indeterminate-Consid er causes of NT-proBNP elevation other than Heart failure such as acute coronary syndrome, pulmonary embolism, pulmonary hypertension, sepsis, stroke, and renal dysfunction. Lab Interpretation (test code = 40608-3) Abnormal [facility] Dallas[facility]IPASE2025-08-31 20:17:29* Test Item Value Reference Range Interpretation Comme nts LIPASE (test code = 4124730388) 52 U/L 0-220 Lab Interpretation (test cod e = 88963-0) Normal [facility] WITH KLED6612-24-07 20:03:29* Test Item Value Reference Range Interpretation Comme nts WBC (test code = 6690-2) 8.14 4.30-11.10 RBC (test code = 789-8) 4.38 3.93-5.25 HGB (test code = 718-7) 10.7 g/dL 11.6-15.0 L HCT (test code = 4544-3) 34 % 35.7-45.2 L MCV (test code = 787-2) 77.6 fL 80.6-95.5 L MCH (test code = 785-6) 24.4 pg 25.9-32.8 L MCHC (test code = 786-4) 31.5 g/dL 31.6-35.1 L RDW-SD (test code = 35179-4) 52 fL 39.0-49.9 H RDW-CV (test code = 788-0) 18.6 % 12.0-15.5 H PLT (test code = 777-3) 318 166-358 MPV (test code = 77588-6) 8.9 fL 9.5-12.9 L NRBC/100 WBC (test code = 8069113341) 0 0.0-10.0 NRBC x10^3 (test code = 1448080929) See_Comment [Automated messa ge] The system which generated this result transmitted reference range: 10*3/?L. The reference range was not used to interpret this result as normal/abnormal. GRAN MAT (NEUT) % (test code = 770-8) 60.9 % IMM GRAN % (test code = 4269602886) 0.5 % LYMPH % (test code = 736-9) 28.7 % MONO % (test code = 5905-5) 6.9 % EOS % (test code = 713-8) 2.5 % BASO % (test code = 706-2) 0.5 % GRAN MAT x10^3(ANC) (test code = 9830741497) 4.96 10*3/uL 1.88-7.09 IMM GRAN x10^3 (test code = 3783665065) 0.04 10*3/uL 0.00-0.06 LYMPH x10^3 (test code = 731-0) 2.34 10*3/uL 1.32-3.29 MONO x10^3 (test code = 742-7) 0.56 10*3/uL 0.33-0.92 EOS x10^3 (test code = 711-2) 0.2 10*3/uL 0.03-0.39 BASO x10^3 (test code = 704-7) 0.04 10*3/uL 0.01-0.07 Lab Interpretation (test code = 40395-7) [facility] cardiac troponin I panel by high sensitivity zdkbwu4239-57-52 21:21:00* Test Item Value Reference Range Interpretation Comme nts Troponin T High Sensitivity (test code = 16303-6) < 6.0 [facility] CtrAmphetamine ur gptlgh3445-54-53 19:39:00* Test Item Value Reference Range Interpretation Comme nts Urine Amphetamines Screen (t est code = 38620-7) NEGATIVE [facility] WrjPzrdcnuom8358-55-89 19:39:00* Test Item Value Reference Range Interpretation Comme nts Methadone Level (test code = JJG6804) NEGATIVE [facility] CtrBenzodiazepines screen id3071-00-83 19:39:00* Test Item Value Reference Range Interpretation Comme [facility] Urine Benzodiazepines Screen (test code = 420749606) POSITIVE [facility] CtrCannabinoids (3-zhhbqqi-PXB) tpkoldppczn2825-93-42 19:39:00* Test Item Value Reference Range Interpretation Comme [facility] Urine Cannabinoids (test cod e = 611985040) NEGATIVE [facility] CtrCocaine metabolite ixzzuk5007-82-02 19:39:00* Test Item Value Reference Range Interpretation Comme [facility] Urine Cocaine Metabolite (te st code = 089817706) NEGATIVE [facility] CtrOpiates kjitj6941-06-20 19:39:00* Test Item Value Reference Range Interpretation Comme [facility] Urine Opiates Screen (test c ode = 042406343) NEGATIVE [facility] CtrUrine hydrocodone measurement (mass/volume) 2025-03-05 19:39:00* Test Item Value Reference Range Interpretation Comme nts Hydrocodone Level (test code = 3681-4) NEGATIVE [facility] CtrUrine fentanyl measurement (mass/volume)2025-03-05 19:39:00* Test Item Value Reference Range Interpretation Comme nts Urine Fentanyl Screen (test code = 3637-6) NEGATIVE [facility] CtrPhencyclidine (PCP) uo0687-48-48 19:39:00* Test Item Value Reference Range Interpretation Comme nts Urine Phencyclidine (PCP) Le edilson (test code = 280571421) NEGATIVE [facility] CtrPropoxyphene [Mass/volume] in Imdng9068-61-54 19:39:00* Test Item Value Reference Range Interpretation Comme nts Propoxyphene Level (test cod e = 3545-1) NEGATIVE [facility] CtroxyCODONE [Mass/volume] in Zykeh2656-72-83 19:39:00* Test Item Value Reference Range Interpretation Comme nts Oxycodone Level (test code = 74723-7) NEGATIVE [facility] CtrAmphetamine ur axevkp6288-54-39 19:39:00* Test Item Value Reference Range Interpretation Comme nts Urine Amphetamines Screen (t est code = 81327-9) NEGATIVE [facility] FarGkbnvkxqe4510-38-61 19:39:00* Test Item Value Reference Range Interpretation Comme nts Methadone Level (test code = XZV2992) NEGATIVE [facility] CtrBenzodiazepines screen ls4673-18-73 19:39:00* Test Item Value Reference Range Interpretation Comme nts Urine Benzodiazepines Screen (test code = 938140964) POSITIVE [facility] CtrCannabinoids (4-klpcmcq-RXG) nkbvkghlenc8003-79-46 19:39:00* Test Item Value Reference Range Interpretation Comme nts Urine Cannabinoids (test cod e = 927072960) NEGATIVE [facility] CtrCocaine metabolite qapuap1290-52-57 19:39:00* Test Item Value Reference Range Interpretation Comme nts Urine Cocaine Metabolite (te st code = 601591663) NEGATIVE [facility] CtrOpiates iwwwv6226-67-93 19:39:00* Test Item Value Reference Range Interpretation Comme nts Urine Opiates Screen (test c ode = 914199540) NEGATIVE [facility] CtrUrine hydrocodone measurement (mass/volume) 2025-03-05 19:39:00* Test Item Value Reference Range Interpretation Comme nts Hydrocodone Level (test code = 3681-4) NEGATIVE [facility] CtrUrine fentanyl measurement (mass/volume)2025-03-05 19:39:00* Test Item Value Reference Range Interpretation Comme nts Urine Fentanyl Screen (test code = 3637-6) NEGATIVE [facility] CtrPhencyclidine (PCP) vb7065-46-91 19:39:00* Test Item Value Reference Range Interpretation Comme nts Urine Phencyclidine (PCP) Le edilson (test code = 593774011) NEGATIVE [facility] CtrPropoxyphene [Mass/volume] in Wpczy9421-62-52 19:39:00* Test Item Value Reference Range Interpretation Comme nts Propoxyphene Level (test cod e = 3545-1) NEGATIVE [facility] CtroxyCODONE [Mass/volume] in Rmkwg6471-47-43 19:39:00* Test Item Value Reference Range Interpretation Comme nts Oxycodone Level (test code = 27580-4) NEGATIVE [facility] CtrRBC count ur skqu9301-82-13 19:33:00* Test Item Value Reference Range Interpretation Comme nts Urine RBC (test code = 798-9) 0-2 [facility] CtrUrine examination for white blood cells (WBC) 2025-03-05 19:33:00* Test Item Value Reference Range Interpretation Comme nts Urine WBC (test code = 909408282) 0-2 [facility] CtrAutomated epithelial cells count in urine sediment (number/area)2025-03-05 19:33:00* Test Item Value Reference Range Interpretation Comme nts Urine Epithelial Cells (test code = 47170-4) 0-2 [facility] CtrBacteria detection in urine sediment by light pikhjtqejc5734-20-70 19:33:00* Test Item Value Reference Range Interpretation Comme nts Urine Bacteria (test code = 49567-0) None Seen [facility] CtrUrine casts detection by automated method 2025-03-05 19:33:00* Test Item Value Reference Range Interpretation Comme nts Urine Casts (test code = 07499-4) 0-2 [facility] CtrRBC count ur fttf1453-40-70 19:33:00* Test Item Value Reference Range Interpretation Comme nts Urine RBC (test code = 798-9) 0-2 [facility] CtrUrine examination for white blood cells (WBC) 2025-03-05 19:33:00* Test Item Value Reference Range Interpretation Comme nts Urine WBC (test code = 118236756) 0-2 [facility] CtrAutomated epithelial cells count in urine sediment (number/area)2025-03-05 19:33:00* Test Item Value Reference Range Interpretation Comme nts Urine Epithelial Cells (test code = 29532-1) 0-2 [facility] CtrBacteria detection in urine sediment by light idwexjxrfi7551-00-97 19:33:00* Test Item Value Reference Range Interpretation Comme nts Urine Bacteria (test code = 15304-8) None [facility]en [facility] casts detection by automated method 2025-03-05 19:33:00* Test Item Value Reference Range Interpretation Comme nts Urine Casts (test code = 27932-0) 0-2 [facility] CtrColor of Urine by Hxgf0806-81-47 19:28:00* Test Item Value Reference Range Interpretation Comme nts Urine Color (test code = 82438-8) Yellow [facility] CtrAppearance of Owbcd5761-24-69 19:28:00* Test Item Value Reference Range Interpretation Comme nts Urine Appearance (test code = 5767-9) Clear [facility] glucose muatvgwqh0563-17-44 19:28:00* Test Item Value Reference Range Interpretation Comme nts Urine Glucose (UA) (test cod e = 2349-9) Negative [facility] CtrBilirubin qb4278-26-94 19:28:00* Test Item Value Reference Range Interpretation Comme nts Urine Bilirubin (test code = 758185432) Negative [facility] CtrKetones lf1913-43-18 19:28:00* Test Item Value Reference Range Interpretation Comme nts Urine Ketones (test code = 05719943) Negative [facility] CtrSpecific gravity of Urine by Automated test strip 2025-03-05 19:28:00* Test Item Value Reference Range Interpretation Comme nts Urine Specific [place] (test code = 95800-0) 1.003 [facility] blood bvdqmazao7290-83-36 19:28:00* Test Item Value Reference Range Interpretation Comme nts Urine Blood (test code = 130569-4) Negative [facility] CtrpH xg8752-01-92 19:28:00* Test Item Value Reference Range Interpretation Comme nts Urine pH (test code = 2756-5) 6.000 [facility] CtrProtein py5009-04-52 19:28:00* Test Item Value Reference Range Interpretation Comme nts Urine Protein (test code = 14183046) Negative [facility] CtrUrobilinogen, urine, br3590-35-65 19:28:00* Test Item Value Reference Range Interpretation Comme nts Urine Urobilinogen (test cod e = 441958188) 0.2 [facility] nitrate dgstfxejx5271-02-63 19:28:00* Test Item Value Reference Range Interpretation Comme nts Urine Nitrate (test code = 46043-0) Negative [facility] leukocyte esterase islcxxwfy1681-90-75 19:28:00* Test Item Value Reference Range Interpretation Comme nts Urine Leukocyte Esterase (te st code = 270339-3) Negative [facility] CtrColor of Urine by Cylp0462-19-21 19:28:00* Test Item Value Reference Range Interpretation Comme nts Urine Color (test code = 70957-3) Yellow [facility] CtrAppearance of Jjbfn8120-31-40 19:28:00* Test Item Value Reference Range Interpretation Comme nts Urine Appearance (test code = 5767-9) Clear [facility] CtrUrine glucose slverfgwh4592-91-22 19:28:00* Test Item Value Reference Range Interpretation Comme nts Urine Glucose (UA) (test cod e = 2349-9) Negative [facility] CtrBilirubin ay6451-50-26 19:28:00* Test Item Value Reference Range Interpretation Comme nts Urine Bilirubin (test code = 170262834) Negative [facility] CtrKetones vh9037-13-61 19:28:00* Test Item Value Reference Range Interpretation Comme nts Urine Ketones (test code = 01792589) Negative [facility] CtrSpecific gravity of Urine by Automated test strip 2025-03-05 19:28:00* Test Item Value Reference Range Interpretation Comme nts Urine Specific [place] (test code = 40795-3) 1.003 [facility] CtrUrine blood covlxgaij0722-32-27 19:28:00* Test Item Value Reference Range Interpretation Comme nts Urine Blood (test code = 577406-5) Negative [facility] CtrpH vf9932-49-35 19:28:00* Test Item Value Reference Range Interpretation Comme nts Urine pH (test code = 2756-5) 6.000 [facility] CtrProtein bv3159-66-07 19:28:00* Test Item Value Reference Range Interpretation Comme nts Urine Protein (test code = 96412169) Negative [facility] CtrUrobilinogen, urine, ta4492-48-15 19:28:00* Test Item Value Reference Range Interpretation Comme [facility] Urine Urobilinogen (test cod e = 471303616) 0.2 [facility] CtrUrine nitrate kzmaolvzw3114-01-56 19:28:00* Test Item Value Reference Range Interpretation Comme nts Urine Nitrate (test code = 75453-1) Negative [facility] leukocyte esterase ctvagyezm7358-77-70 19:28:00* Test Item Value Reference Range Interpretation Comme [facility] Urine Leukocyte Esterase (te st code = 488651-2) Negative [facility] CtrAbsolute eosinophil uqovm7118-93-18 19:17:00* Test Item Value Reference Range Interpretation Comme nts Eosinophils # (Auto) (test c ode = YZB2550) 0.18 [facility] CtrRBC msqdf9089-28-36 19:17:00* Test Item Value Reference Range Interpretation Comme nts Red Blood Count (test code = 38038847) 4.82 [facility] MroAyuucavahm4094-00-59 19:17:00* Test Item Value Reference Range Interpretation Comme nts Hematocrit (test code = 03541520) 37.8 [facility] CtrMCV (mean corpuscular volume) determination 2025-03-05 19:17:00* Test Item Value Reference Range Interpretation Comme nts Mean Corpuscular Volume (shailesh t code = 19202-3) 78.4 [facility] CtrMean corpuscular hemoglobin (MCH) determination 2025-03-05 19:17:00* Test Item Value Reference Range Interpretation Comme [facility] Mean Corpuscular Hemoglobin (test code = 90627616) 24.5 [facility] CtrMean corpuscular hemoglobin concentration (MCHC) wiinizdxiibnu2009-55-98 19:17:00* Test Item Value Reference Range Interpretation Comme [facility] Mean Corpuscular Hemoglobin Concent (test code = 55345914) 31.2 [facility] CtrErythrocyte distribution width coefficient of xeousqdzf8599-04-84 19:17:00* Test Item Value Reference Range Interpretation Comme [facility] Red Cell Distribution Width (test code = 80354791) 18.9 [facility] CtrPlatelet ucgdp1969-52-78 19:17:00* Test Item Value Reference Range Interpretation Comme [facility] Platelet Count (test code = 96908010) 346 [facility] CtrMean platelet mrvqdr8935-50-50 19:17:00* Test Item Value Reference Range Interpretation Comme [facility] Mean Platelet Volume (test c ode = 85441115) 9.5 [facility] CtrNeutrophils seg % rns5605-33-83 19:17:00* Test Item Value Reference Range Interpretation Comme [facility] Neutrophils (%) (Auto) (test code = 66550-5) 70.2 [facility] CtrAbsolute immature granulocyte nuacg8473-29-65 19:17:00* Test Item Value Reference Range Interpretation Comme nts Absolute Immature Granulocyt e (auto (test code = 62446-4) 0.05 [facility] CtrBasophil % dwgiig3333-02-84 19:17:00* Test Item Value Reference Range Interpretation Comme nts Basophils (%) (Auto) (test c ode = 07089-0) 0.4 [facility] CtrBlood band neutrophils count (number/volume) 2025-03-05 19:17:00* Test Item Value Reference Range Interpretation Comme [facility] Neutrophils # (Auto) (test c ode = 21809-5) 7.64 [facility] CtrAbsolute lymphocyte dcita0392-75-08 19:17:00* Test Item Value Reference Range Interpretation Comme nts Lymphocytes # (Auto) (test c ode = 65941-0) 2.36 [facility] CtrAbsolute basophil snkrf6019-23-37 19:17:00* Test Item Value Reference Range Interpretation Comme nts Basophils # (Auto) (test cod e = 12507530) 0.04 [facility] CtrAbsolute NRBC djgff3726-99-33 19:17:00* Test Item Value Reference Range Interpretation Comme nts Nucleated Red Blood Cells # (test code = 800085420) 0 [facility] CtrAbsolute eosinophil wtolo7612-27-44 19:17:00* Test Item Value Reference Range Interpretation Comme nts Eosinophils # (Auto) (test c ode = QGW6846) 0.18 [facility] [place] CtrRBC tqtne5318-23-22 19:17:00* Test Item Value Reference Range Interpretation Comme nts Red Blood Count (test code = 37549384) 4.82 [facility] [place] CynKecaqmegsp5237-44-02 19:17:00* Test Item Value Reference Range Interpretation Comme [facility] Hematocrit (test code = 02860059) 37.8 [facility] [place] CtrMCV (mean corpuscular volume) determination 2025-03-05 19:17:00* Test Item Value Reference Range Interpretation Comme [facility] Mean Corpuscular Volume (shailesh t code = 54007-9) 78.4 [facility] [place] CtrMean corpuscular hemoglobin (MCH) determination 2025-03-05 19:17:00* Test Item Value Reference Range Interpretation Comme [facility] Mean Corpuscular Hemoglobin (test code = 69271693) 24.5 [facility] [place] CtrMean corpuscular hemoglobin concentration (MCHC) grqtfxlfqexxb5962-72-65 19:17:00* Test Item Value Reference Range Interpretation Comme [facility] Mean Corpuscular Hemoglobin Concent (test code = 76881229) 31.2 [facility] [place] CtrErythrocyte distribution width coefficient of ivmvacpdf3390-38-52 19:17:00* Test Item Value Reference Range Interpretation Comme nts Red Cell Distribution Width (test code = 38275311) 18.9 [facility] [place] CtrPlatelet ntdxf7458-99-04 19:17:00* Test Item Value Reference Range Interpretation Comme nts Platelet Count (test code = 68401672) 346 [facility] [place] CtrMean platelet deekth1729-26-97 19:17:00* Test Item Value Reference Range Interpretation Comme nts Mean Platelet Volume (test c ode = 95159600) 9.5 [facility] [place] CtrNeutrophils seg % pss2202-72-90 19:17:00* Test Item Value Reference Range Interpretation Comme nts Neutrophils (%) (Auto) (test code = 90676-3) 70.2 [facility] [place] CtrAbsolute immature granulocyte wonlm4257-33-64 19:17:00* Test Item Value Reference Range Interpretation Comme nts Absolute Immature Granulocyt e (auto (test code = 39349-0) 0.05 [facility] [place] CtrBasophil % cqmfbb4636-89-53 19:17:00* Test Item Value Reference Range Interpretation Comme nts Basophils (%) (Auto) (test c ode = 51567-3) 0.4 [facility] [place] CtrBlood band neutrophils count (number/volume) 2025-03-05 19:17:00* Test Item Value Reference Range Interpretation Comme nts Neutrophils # (Auto) (test c ode = 21930-0) 7.64 [facility] [place] CtrAbsolute lymphocyte yjvrj1928-28-60 19:17:00* Test Item Value Reference Range Interpretation Comme nts Lymphocytes # (Auto) (test c ode = 38791-2) 2.36 [facility] [place] CtrAbsolute basophil icqur1950-84-22 19:17:00* Test Item Value Reference Range Interpretation Comme nts Basophils # (Auto) (test cod e = 69148195) 0.04 [facility] [place] CtrAbsolute NRBC tzkgr0592-71-37 19:17:00* Test Item Value Reference Range Interpretation Comme nts Nucleated Red Blood Cells # (test code = 240236250) 0 [facility] [place] CtrSerum or plasma cardiac troponin I panel by high sensitivity jnezwo8717-34-40 19:12:00* Test Item Value Reference Range Interpretation Comme nts Troponin T High Sensitivity (test code = 91360-7) < 6.0 [facility] [place] CtrSerum beta human chorionic gonadotropic (BhCG) ircexuoiw2700-19-37 19:11:00* Test Item Value Reference Range Interpretation Comme nts Serum Test, Qualit ative (test code = 2110-5) NEGATIVE [facility] [place] CtrSerum beta human chorionic gonadotropic (BhCG) oxqeiujpb9141-08-85 19:11:00* Test Item Value Reference Range Interpretation Comme nts Serum Test, Qualit ative (test code = 2110-5) NEGATIVE [facility] [place] CtrBilirubin wmrke2806-85-85 19:06:00* Test Item Value Reference Range Interpretation Comme nts Total Bilirubin (test code = WTA3834) < 0.2 [facility] [place] CtrSerum or plasma urea nitrogen measurement (mass/volume)2025-03-05 19:06:00* Test Item Value Reference Range Interpretation Comme nts Blood Urea Nitrogen (test co de = 3094-0) < 4 [facility] [place] QhrTHG5410-93-75 19:06:00* Test Item Value Reference Range Interpretation Comme nts Aspartate Amino Transf (AST/ SGOT) (test code = QEQ9380) 15 [facility] [place] CtrCreatinine rfxxw4036-55-99 19:06:00* Test Item Value Reference Range Interpretation Comme nts Creatinine (test code = 453348204) 0.69 [facility] [place] CtrEstimated glomerular filtration rate (GFR) vcborbyrcpdxi4065-57-58 19:06:00* Test Item Value Reference Range Interpretation Comme nts Glomerular Filtration Rate C alc (test code = 699014593) > 60.00 [facility] [place] CtrBUN/creatinine seimn1449-66-75 19:06:00* Test Item Value Reference Range Interpretation Comme nts BUN/Creatinine Ratio (test c ode = 60048059) 5.8 [facility] [place] CtrBody fluid potassium gwcpvkxorxu0976-02-54 19:06:00* Test Item Value Reference Range Interpretation Comme nts Potassium Level (test code = 2821-7) 3.2 [facility] [place] ClzKU03633-59-81 19:06:00* Test Item Value Reference Range Interpretation Comme nts Carbon Dioxide Level (test c ode = 93646392) 21 [facility] [place] CtrAnion gap dudgkcnqqya0152-42-73 19:06:00* Test Item Value Reference Range Interpretation Comme nts Anion Gap (test code = 94475188) 16.2 [facility] [place] CtrCalcium xmqxp8691-82-37 19:06:00* Test Item Value Reference Range Interpretation Comme nts Calcium Level (test code = 69347436) 9.2 [facility] [place] CtrGlobulin rhr6739-79-86 19:06:00* Test Item Value Reference Range Interpretation Comme nts Globulin (test code = 531549965) 2.7 [facility] [place] CtrALT (SGPT) ser/wnue9887-44-04 19:06:00* Test Item Value Reference Range Interpretation Comme nts Alanine Aminotransferase (AL T/SGPT) (test code = 1742-6) 15 [facility] [place] CtrAmylase cczne4493-66-77 19:06:00* Test Item Value Reference Range Interpretation Comme nts Amylase Level (test code = 1798-8) 62 [facility] [place] BtcDqxxhd0695-68-30 19:06:00* Test Item Value Reference Range Interpretation Comme nts Lipase (test code = 526202563) 28 [facility] [place] CtrALP ser/ydfr8528-86-53 19:06:00* Test Item Value Reference Range Interpretation Comme nts Total Alkaline Phosphatase ( test code = 6768-6) 93 [facility] [place] CtrBilirubin lkurl8981-49-55 19:06:00* Test Item Value Reference Range Interpretation Comme nts Total Bilirubin (test code = UNJ4423) < 0.2 [facility] [place] CtrSerum or plasma urea nitrogen measurement (mass/volume)2025-03-05 19:06:00* Test Item Value Reference Range Interpretation Comme nts Blood Urea Nitrogen (test co de = 3094-0) < 4 [facility] [place] NemRSS6809-27-69 19:06:00* Test Item Value Reference Range Interpretation Comme nts Aspartate Amino Transf (AST/ SGOT) (test code = HDV5292) 15 [facility] [place] CtrCreatinine ogxof5013-49-91 19:06:00* Test Item Value Reference Range Interpretation Comme nts Creatinine (test code = 715823046) 0.69 [facility] [place] CtrEstimated glomerular filtration rate (GFR) wcobgtmdldalu7937-71-86 19:06:00* Test Item Value Reference Range Interpretation Comme nts Glomerular Filtration Rate C alc (test code = 342871909) > 60.00 [facility] [place] CtrBUN/creatinine rwnwq4843-06-33 19:06:00* Test Item Value Reference Range Interpretation Comme nts BUN/Creatinine Ratio (test c ode = 12790539) 5.8 [facility] [place] CtrBody fluid potassium ovcydxwdnrf8589-67-30 19:06:00* Test Item Value Reference Range Interpretation Comme nts Potassium Level (test code = 2821-7) 3.2 [facility] [place] ShhSL07380-87-61 19:06:00* Test Item Value Reference Range Interpretation Comme nts Carbon Dioxide Level (test c ode = 84853342) 21 [facility] [place] CtrAnion gap svgjyajcgbz3921-37-07 19:06:00* Test Item Value Reference Range Interpretation Comme nts Anion Gap (test code = 05305793) 16.2 [facility] [place] CtrCalcium tyict9392-30-09 19:06:00* Test Item Value Reference Range Interpretation Comme nts Calcium Level (test code = 28892461) 9.2 [facility] [place] CtrGlobulin xcf3668-21-76 19:06:00* Test Item Value Reference Range Interpretation Comme nts Globulin (test code = 003499095) 2.7 [facility] [place] CtrALT (SGPT) ser/dseu5386-03-67 19:06:00* Test Item Value Reference Range Interpretation Comme nts Alanine Aminotransferase (AL T/SGPT) (test code = 1742-6) 15 [facility] [place] CtrAmylase joqkj9092-78-02 19:06:00* Test Item Value Reference Range Interpretation Comme nts Amylase Level (test code = 1798-8) 62 [facility] [place] XeuOagrvm0812-48-22 19:06:00* Test Item Value Reference Range Interpretation Comme nts Lipase (test code = 796610264) 28 [facility] [place] CtrALP ser/susl1102-41-55 19:06:00* Test Item Value Reference Range Interpretation Comme [facility] Total Alkaline Phosphatase ( test code = 6768-6) 93 [facility] [place] CtrCT ABDOMEN PELVIS W LQHVOAIC0582-44-92 01:09:19 EXAMINATION: CT ABDOMEN PELVIS W CONTRAST ORDERING PHYSICIAN: RAMIREZ CALDERON HISTORY: EpigastricTECHNIQUE: CT of the abdomen and pelvis with contrast. Iodinatedintravenous contrast was administered per protocol. No enteric contrast.This examination was performed according to ALARA principles. CO MPARISON: CT abdomen and pelvis 11/10/2024, 10/23/2024, and 07/03/2024.. FINDINGS: SUPPORT DEVICES: Subpleural reticular opacities within the dependent aspectof both lungs compatible with atelectasis orscarring. LOWER CHEST: Normal. ABDOMEN/PELVIS:Liver: Normal.Gallbladder/biliary: Postcholecystectomy. No biliary ductal dilation. Pancreas: Normal.Spleen: Normal.Adrenal glands: Unchanged indeterminate left adrenal nodule measuring 2.6 x2.8 cm with attenuation of 53 Hounsfield units. Normal appearance of theright adrenal gland. Kidneys and ureters: Normal.Bladder: Decompressed, which limits evalua tion.Reproductive organs: Normal for age. Stomach/bowel: Normal appearance of the stomach. Small fluid-filled loop ofproximal small bowel.. Normal appearance of the colon.Appendix: Normal. Lymph nodes: No lymphadenopathy.Peritoneum: No intraperitoneal free fluid. No pneumoperitoneum.Vessels: Normal. MUSCULOSKELETAL:Abdominal wall: No hernia or soft tissue mass.Bones: No acute osseous abnormality.[facility] 23:05:00* Test Item Value Reference Range Interpretation Comme nts POCT PREG (test code = 1605) Negative On board controls acceptable with C Line (test code = 3574) Yes POCT PREG LOT # (test code = 3575) 07-08-2026 POCT PREG TEST DATE ( test code = 3576) 989906 Lab Interpretation (test cod e = 94540-8) Normal [facility] DallasTROPONIN G0134-80-88 22:39:57* Test Item Value Reference Range Interpretation Comme nts TROPONIN I (test code = 9308839372) 0.003 ng/mL <=0.034 DARWIN (test code = [...] of biotin. Lab Interpretation (test code = 92203-8) Normal [facility]. METABOLIC PANEL (55506)2025-03-04 22:28:51* Test Item Value Reference Range Interpretation Comme nts NA (test code = 0808242137) 136 mmol/L 135-145 K (test code = 1658707691) 3.3 mmol/L 3.5-5.0 L CL (test code = 0671948336) 107 mmol/L 98-108 CO2 TOTAL (test code = 1192605351) 21 mmol/L 23-31 L AGAP (test code = 6225870705) 8 2-16 BUN (test code = 8531811565) 4 mg/dL 7-23 L GLUCOSE (test code = 1774300841) 134 mg/dL 70-110 H CREATININE (test code = 2160-0) 0.5 mg/dL 0.50-1.04 TOTAL BILI (test code = 0905023624) 0.4 mg/dL 0.1-1.1 CALCIUM (test code = 5450864502) 9 mg/dL 8.6-10.6 T PROTEIN (test code = 0276627242) 6.4 g/dL 6.3-8.2 ALBUMIN (test code = 3222053919) 3.7 g/dL 3.5-5.0 ALK PHOS (test code = 6499689843) 66 U/L 34-122 ALTv (test code = 1742-6) 14 U/L 5-35 AST(SGOT) (test code = 6313927363) 19 U/L 13-40 eGFR (test code = 72566-8) 117.3 mL/min/1.73m2 CKD-EPI eGFR (2020). Assuming creatinine has been stable day-to-day for at least three months, the eGFR indicates Category G1 (>= 90 mL/min/1.73 m2) Lab Interpretation (test code = 93643-6) Abnormal [facility] DallasLIPASE2025-08-28 22:28:30* Test Item Value Reference Range Interpretation Comme nts LIPASE (test code = 0929902957) 106 U/L 0-220 Lab Interpretation (test cod e = 68429-6) Normal [facility] DallasCB WITH YTNN2395-83-15 22:09:45* Test Item Value Reference Range Interpretation Comme nts WBC (test code = 6690-2) 10.34 4.30-11.10 RBC (test code = 789-8) 4.63 3.93-5.25 HGB (test code = 718-7) 11.4 g/dL 11.6-15.0 L HCT (test code = 4544-3) 36.1 % 35.7-45.2 MCV (test code = 787-2) 78 fL 80.6-95.5 L MCH (test code = 785-6) 24.6 pg 25.9-32.8 L MCHC (test code = 786-4) 31.6 g/dL 31.6-35.1 RDW-SD (test code = 47410-2) 51.5 fL 39.0-49.9 H RDW-CV (test code = 788-0) 18.5 % 12.0-15.5 H PLT (test code = 777-3) 355 166-358 MPV (test code = 97670-5) 9.3 fL 9.5-12.9 L NRBC/100 WBC (test code = 6302310146) 0 0.0-10.0 NRBC x10^3 (test code = 8852560567) See_Comment [Automated messa ge] The system which generated this result transmitted reference range: 10*3/?L. The reference range was not used to interpret this result as normal/abnormal. JANE RATLIFF (NEUT) % (test code = 770-8) 61.3 % IMM GRAN % (test code = 9958454412) 0.5 % LYMPH % (test code = 736-9) 30.3 % MONO % (test code = 5905-5) 5.2 % EOS % (test code = 713-8) 2.3 % BASO % (test code = 706-2) 0.4 % GRAN MAT x10^3(ANC) (test code = 1471265884) 6.34 10*3/uL 1.88-7.09 IMM GRAN x10^3 (test code = 9748464066) 0.05 10*3/uL 0.00-0.06 LYMPH x10^3 (test code = 731-0) 3.13 10*3/uL 1.32-3.29 MONO x10^3 (test code = 742-7) 0.54 10*3/uL 0.33-0.92 EOS x10^3 (test code = 711-2) 0.24 10*3/uL 0.03-0.39 BASO x10^3 (test code = 704-7) 0.04 10*3/uL 0.01-0.07 Lab Interpretation (test code = 45160-0) Abnormal [facility]. METABOLIC PANEL (90977)2024-12-14 19:50:23* Test Item Value Reference Range Interpretation Comme nts NA (test code = 6683992129) 135 mmol/L 135-145 K (test code = 4526378056) 4.2 mmol/L 3.5-5.0 CL (test code = 1625501391) 104 mmol/L 98-108 CO2 TOTAL (test code = 4798890105) 21 mmol/L 23-31 L AGAP (test code = 0359554809) 10 2-16 BUN (test code = 3982893553) 10 mg/dL 7-23 GLUCOSE (test code = 3934716455) 87 mg/dL 70-110 CREATININE (test code = 2160-0) 0.62 mg/dL 0.50-1.04 TOTAL BILI (test code = 7615365523) 0.3 mg/dL 0.1-1.1 CALCIUM (test code = 7984718973) 9.2 mg/dL 8.6-10.6 T PROTEIN (test code = 5020064881) 7.3 g/dL 6.3-8.2 ALBUMIN (test code = 3367822565) 4.2 g/dL 3.5-5.0 ALK PHOS (test code = 2098912417) 75 U/L 34-122 ALTv (test code = 1742-6) 17 U/L 5-35 AST(SGOT) (test code = 4524547905) 21 U/L 13-40 eGFR (test code = 22055-4) 112.1 mL/min/1.73m2 CKD-EPI eGFR (2020). Assuming creatinine has been stable day-to-day for at least three months, the eGFR indicates Category G1 (>= 90 mL/min/1.73 m2) Lab Interpretation (test code = 72203-3) [facility]normal [facility]ASE2025-[facility] 19:50:03* Test Item Value Reference Range Interpretation Comme nts LIPASE (test code = 0645973700) 77 U/L 0-220 Lab Interpretation (test cod e = 81062-7) Normal [facility] DallasPOCT CIVE6579-55-34 19:48:00* Test Item Value Reference Range Interpretation Comme nts POCT PREG (test code = 1605) Negative On board controls acceptable with C Line (test code = 3574) Yes Lab Interpretation (test cod e = 06520-8) Normal [facility] DallasCBC WITH OTUT0924-99-96 19:40:20* Test Item Value Reference Range Interpretation [...] 31.9 g/dL 31.6-35.1 RDW-SD (test code = 91075-8) 48.7 fL 39.0-49.9 RDW-CV (test code = 788-0) 17.2 % 12.0-15.5 H PLT (test code = 777-3) 444 166-358 H MPV (test code = 64297-3) 8.8 fL 9.5-12.9 L NRBC/100 WBC (test code = 8768889082) 0 0.0-10.0 NRBC x10^3 (test code = 1944656860) See_Comment [Automated messa ge] The system which generated this result transmitted reference range: 10*3/?L. The reference range was not used to interpret this result as normal/abnormal. GRAN MAT (NEUT) % (test code = 770-8) 70 % IMM GRAN % (test code = 3313404011) 0.4 % LYMPH % (test code = 736-9) 21.2 % MONO % (test code = 5905-5) 7 % EOS % (test code = 713-8) 1.2 % BASO % (test code = 706-2) 0.2 % GRAN MAT x10^3(ANC) (test code = 9252506266) 8.43 10*3/uL 1.88-7.09 H IMM GRAN x10^3 (test code = 6383032864) 0.05 10*3/uL 0.00-0.06 LYMPH x10^3 (test code = 731-0) 2.56 10*3/uL 1.32-3.29 MONO x10^3 (test code = 742-7) 0.85 10*3/uL 0.33-0.92 EOS x10^3 (test code = 711-2) 0.15 10*3/uL 0.03-0.39 BASO x10^3 (test code = 704-7) 0.03 10*3/uL 0.01-0.07 Lab Interpretation (test code = 98839-2) [facility]normal [facility] or plasma cardiac troponin I panel by high sensitivity qfryjw7256-05-72 21:02:00* Test Item Value Reference Range Interpretation Comme nts Troponin T High Sensitivity (test code = 02265-1) < 6.0 [facility] [place] CtrNT-proBNP hjsmewfsbys0685-85-21 19:10:00* Test Item Value Reference Range Interpretation Comme nts RW-Wrq-S-Type Natriuretic Pe ptide (test code = 647740557) 173 [facility] [place] CtrSerum or plasma creatine kinase MB (CK-MB) measurement by immunoassay (mass/volume)2024-12-10 19:09:00* Test Item Value Reference Range Interpretation Comme nts Creatine Kinase MB (test cod e = 03728-9) < 1.0 [facility] [place] QkfJ-teaxc3791-40-05 19:07:00* Test Item Value Reference Range Interpretation Comme nts D-Dimer (test code = 479050480) 227 [facility] [place] CtrSerum or plasma glucose measurement (mass/volume) 2024-12-10 19:06:00* Test Item Value Reference Range Interpretation Comme nts Random Glucose (test code = 2345-7) 100 [facility] [place] CtrSerum or plasma urea nitrogen measurement (mass/volume)2024-12-10 19:06:00* Test Item Value Reference Range Interpretation Comme nts Blood Urea Nitrogen (test co de = 3094-0) 10 [facility] [place] TurKNM2751-06-46 19:06:00* Test Item Value Reference Range Interpretation Comme nts Aspartate Amino Transf (AST/ SGOT) (test code = LPF4243) 13 [facility] [place] CtrBilirubin oibii2001-43-82 19:06:00* Test Item Value Reference Range Interpretation Comme nts Total Bilirubin (test code = FJY9496) < 0.2 [facility] [place] CtrEstimated glomerular filtration rate (GFR) ennwmuycdyksi6289-71-70 19:06:00* Test Item Value Reference Range Interpretation Comme nts Glomerular Filtration Rate C alc (test code = 608680056) > 60.00 [facility] [place] CtrBUN/creatinine xcwsi4373-58-62 19:06:00* Test Item Value Reference Range Interpretation Comme nts BUN/Creatinine Ratio (test c ode = 49888054) 20.8 [facility] [place] KwrFX49612-01-93 19:06:00* Test Item Value Reference Range Interpretation Comme nts Carbon Dioxide Level (test c ode = 49234921) 25 [facility] [place] CtrAnion gap vhuhkioebta2436-94-88 19:06:00* Test Item Value Reference Range Interpretation Comme nts Anion Gap (test code = 49114620) 13.6 [facility] [place] CtrCalcium edtbe9870-99-91 19:06:00* Test Item Value Reference Range Interpretation Comme nts Calcium Level (test code = 08806678) 9.3 [facility] [place] CtrGlobulin lrw3508-02-98 19:06:00* Test Item Value Reference Range Interpretation Comme nts Globulin (test code = 785213731) 3.0 [facility] [place] CtrALT (SGPT) ser/mqqg9607-67-25 19:06:00* Test Item Value Reference Range Interpretation Comme nts Alanine Aminotransferase (AL T/SGPT) (test code = 1742-6) 11 [facility] [place] ElrLqwple0730-44-43 19:06:00* Test Item Value Reference Range Interpretation Comme nts Lipase (test code = 578589838) 28 [facility] [place] CtrALP ser/enng5768-15-18 19:06:00* Test Item Value Reference Range Interpretation Comme nts Total Alkaline Phosphatase ( test code = 6768-6) 84 [facility] [place] CtrCreatine kinase lnmmswaqstt4844-98-27 19:06:00* Test Item Value Reference Range Interpretation Comme nts Creatine Kinase (test code = 515247959) 35 [facility] [place] CtrProthrombin towo3179-54-76 18:59:00* Test Item Value Reference Range Interpretation Comme nts Prothrombin Time (test code = 723595171) 10.3 [facility] [place] CtrWhole blood INR knsgseehswl6840-20-34 18:59:00* Test Item Value Reference Range Interpretation Comme nts Prothromb Time International Ratio (test code = 20118-7) 0.94 [facility] [place] CtrActivated partial thromboplastin time (aPTT) in platelet poor plasma by coagulation llscy2471-83-73 18:59:00* Test Item Value Reference Range Interpretation Comme nts Activated Partial Thrombopla st Time (test code = 07363-9) 24.6 [facility] [place] CtrSerum beta human chorionic gonadotropic (BhCG) jkoqvjrqe0305-01-23 18:59:00* Test Item Value Reference Range Interpretation Comme [facility] Serum Test, Qualit ative (test code = 2110-5) NEGATIVE [facility] [place] CtrAbsolute eosinophil fxlfg3015-74-76 18:48:00* Test Item Value Reference Range Interpretation Comme [facility] Eosinophils # (Auto) (test c ode = QFO0348) 0.24 [facility] [place] CtrRBC bmlyi1053-21-29 18:48:00* Test Item Value Reference Range Interpretation Comme [facility] Red Blood Count (test code = 14100517) 4.51 [facility] [place] RzbVakduvfnsf0857-94-01 18:48:00* Test Item Value Reference Range Interpretation Comme [facility] Hematocrit (test code = 26391243) 35.7 [facility] [place] CtrMCV (mean corpuscular volume) determination 2024-12-10 18:48:00* Test Item Value Reference Range Interpretation Comme [facility] Mean Corpuscular Volume (shailesh t code = 01728-4) 79.2 [facility] [place] CtrMean corpuscular hemoglobin (MCH) determination 2024-12-10 18:48:00* Test Item Value Reference Range Interpretation Comme [facility] Mean Corpuscular Hemoglobin (test code = 47122005) 25.1 [facility] corpuscular hemoglobin concentration (MCHC) qqxcjqjwughml3081-51-04 18:48:00* Test Item Value Reference Range Interpretation Comme [facility] Mean Corpuscular Hemoglobin Concent (test code = 78233720) 31.7 [facility] [place] CtrRBC distribution width coefficient of variation 2024-12-10 18:48:00* Test Item Value Reference Range Interpretation Comme [facility] Red Cell Distribution Width (test code = 60870897) 16.9 [facility] [place] CtrPlatelet omrtd0773-90-22 18:48:00* Test Item Value Reference Range Interpretation Comme [facility] Platelet Count (test code = 92480780) 395 [facility] [place] CtrMean platelet gnssrp3960-68-81 18:48:00* Test Item Value Reference Range Interpretation Comme nts Mean Platelet Volume (test c ode = 05118619) 8.8 [facility] [place] CtrNeutrophils seg % bud9698-99-65 18:48:00* Test Item Value Reference Range Interpretation Comme nts Neutrophils (%) (Auto) (test code = 37227-1) 53.2 [facility] [place] CtrAbsolute immature granulocyte hhbvf6752-74-12 18:48:00* Test Item Value Reference Range Interpretation Comme nts Absolute Immature Granulocyt e (auto (test code = 23254-6) 0.03 [facility] [place] CtrBasophil % hddtpa7708-47-48 18:48:00* Test Item Value Reference Range Interpretation Comme nts Basophils (%) (Auto) (test c ode = 29844-9) 0.4 [facility] [place] CtrBlood band neutrophils count (number/volume) 2024-12-10 18:48:00* Test Item Value Reference Range Interpretation Comme nts Neutrophils # (Auto) (test c ode = 62482-4) 4.46 [facility] [place] CtrAbsolute lymphocyte ufdxv5532-40-90 18:48:00* Test Item Value Reference Range Interpretation Comme nts Lymphocytes # (Auto) (test c ode = 24264-7) 3.09 [facility] [place] CtrAbsolute basophil hnuwz5522-69-66 18:48:00* Test Item Value Reference Range Interpretation Comme nts Basophils # (Auto) (test cod e = 45498036) 0.03 [facility] CtrAbsolute NRBC qlcbq7359-14-59 18:48:00* Test Item Value Reference Range Interpretation Comme nts Nucleated Red Blood Cells # (test code = 707067384) 0 [facility] CtrEKG (SCANNED DOCUMENTS)2024-12-09 20:20:06Ordered by an unspecified provider.[facility]OP[facility] I 2024-12-09 02:28:53* Test Item Value Reference Range Interpretation Comme nts TROPONIN I (test code = 5236811920) 0.003 ng/mL <=0.034 DARWIN (test code = [...] of biotin. Lab Interpretation (test code = 74965-5) Normal [facility] DallasN-TERMINAL AXR-[id number] 02:26:17* Test Item Value Reference Range Interpretation Comme nts NT-proBNP (test code = 33610-6) 47 pg/mL <=125 Lab Interpretation (test cod e = 48625-0) Normal [facility]. METABOLIC PANEL (83131)2024-12-09 02:17:14* Test Item Value Reference Range Interpretation Comme nts NA (test code = 9685759022) 139 mmol/L 135-145 K (test code = 3485534915) 3.2 mmol/L 3.5-5.0 L CL (test code = 5510553098) 106 mmol/L 98-108 CO2 TOTAL (test code = 2425913416) 23 mmol/L 23-31 AGAP (test code = 1086275552) 10 2-16 BUN (test code = 3563926244) 12 mg/dL 7-23 GLUCOSE (test code = 8400043313) 117 mg/dL 70-110 H CREATININE (test code = 2160-0) 0.63 mg/dL 0.50-1.04 TOTAL BILI (test code = 3080332284) 0.1 mg/dL 0.1-1.1 CALCIUM (test code = 1264433626) 9 mg/dL 8.6-10.6 T PROTEIN (test code = 4168000893) 6.4 g/dL 6.3-8.2 ALBUMIN (test code = 5297081560) 3.7 g/dL 3.5-5.0 ALK PHOS (test code = 2130532250) 63 U/L 34-122 ALTv (test code = 1742-6) 17 U/L 5-35 AST(SGOT) (test code = 2414281155) 16 U/L 13-40 eGFR (test code = 12195-3) 111.6 mL/min/1.73m2 CKD-EPI eGFR (2020). Assuming creatinine has been stable day-to-day for at least three months, the eGFR indicates Category G1 (>= 90 mL/min/1.73 m2) Lab Interpretation (test code = 84525-2) Abnormal [facility] WITH YCIP3583-27-31 02:00:12* Test Item Value Reference Range Interpretation [...] 32.4 g/dL 31.6-35.1 RDW-SD (test code = 12236-3) 51.7 fL 39.0-49.9 H RDW-CV (test code = 788-0) 17.3 % 12.0-15.5 H PLT (test code = 777-3) 377 166-358 H MPV (test code = 45931-0) 9.3 fL 9.5-12.9 L NRBC/100 WBC (test code = 1099211519) 0 0.0-10.0 NRBC x10^3 (test code = 8678555033) See_Comment [Automated [employer] ge] The system which generated this result transmitted reference range: 10*3/?L. The reference range was not used to interpret this result as normal/abnormal. GRAN MAT (NEUT) % (test code = 770-8) 53.2 % IMM GRAN % (test code = 2004500243) 0.4 % LYMPH % (test code = 736-9) 37.2 % MONO % (test code = 5905-5) 6 % EOS % (test code = 713-8) 2.7 % BASO % (test code = 706-2) 0.5 % GRAN MAT x10^3(ANC) (test code = 2270692119) 3.91 10*3/uL 1.88-7.09 IMM GRAN x10^3 (test code = 6911692904) 0.03 10*3/uL 0.00-0.06 LYMPH x10^3 (test code = 731-0) 2.74 10*3/uL 1.32-3.29 MONO x10^3 (test code = 742-7) 0.44 10*3/uL 0.33-0.92 EOS x10^3 (test code = 711-2) 0.2 10*3/uL 0.03-0.39 BASO x10^3 (test code = 704-7) 0.04 10*3/uL 0.01-0.07 Lab Interpretation (test code = 64170-6) Abnormal [facility] DallasTroponin [id number] 04:09:19* Test Item Value Reference Range Interpretation Comme nts TROPONIN I (test code = 9257943424) 0.002 ng/mL <=0.034 DARWIN (test code = [...] of biotin. Lab Interpretation (test code = 29908-3) Normal [facility] DallasXR Chest 1 zf7223-11-22 00:10:33CHEST ONE VIEW ORDERING PHYSICIAN: KLAUDIA NARVAEZ CLINICAL HISTORY:Chest pain ; TECHNIQUE: Single frontal radiograph of the chest was obtained. COMPARISON: Radiograph 10/31/2024. FINDINGS: Cardiac silhouette is within normal limits. No focal lung consolidation. Nopneumothorax or pleural effusion. Noacute osseous abnormality. [facility] BranchSerum or plasma glucose measurement (mass/volume)2024-11-15 12:58:00* Test Item Value Reference Range Interpretation Comme nts Random Glucose (test code = 2345-7) 109 [facility] CtrSerum or plasma urea nitrogen measurement (mass/volume)2024-11-15 12:58:00* Test Item Value Reference Range Interpretation Comme nts Blood Urea Nitrogen (test co de = 3094-0) 7 [facility] SqkQRI1765-32-94 12:58:00* Test Item Value Reference Range Interpretation Comme nts Aspartate Amino Transf (AST/ SGOT) (test code = NBK9779) 13 [facility] CtrBilirubin ksjaf9125-74-26 12:58:00* Test Item Value Reference Range Interpretation Comme [facility] Total Bilirubin (test code = GVE8538) < 0.2 [facility] CtrEstimated glomerular filtration rate (GFR) jtwpoeasxoqrl6286-72-57 12:58:00* Test Item Value Reference Range Interpretation Comme [facility] Glomerular Filtration Rate C alc (test code = 529236149) > 60.00 [facility] CtrBUN/creatinine ftaia6061-85-55 12:58:00* Test Item Value Reference Range Interpretation Comme [facility] BUN/Creatinine Ratio (test c ode = 20213772) 14.9 [facility] JlcLY00787-41-72 12:58:00* Test Item Value Reference Range Interpretation Comme nts Carbon Dioxide Level (test c ode = 71252392) 19 [facility] CtrAnion gap fztdnonehas2183-51-90 12:58:00* Test Item Value Reference Range Interpretation Comme nts Anion Gap (test code = 94592660) 18.2 [facility] CtrCalcium hutil6406-23-67 12:58:00* Test Item Value Reference Range Interpretation Comme nts Calcium Level (test code = 16202670) 9.3 [facility] CtrGlobulin nxo4199-07-63 12:58:00* Test Item Value Reference Range Interpretation Comme nts Globulin (test code = 266766081) 3.0 [facility]trALT (SGPT) ser/yftw3118-01-29 12:58:00* Test Item Value Reference Range Interpretation Comme nts Alanine Aminotransferase (AL T/SGPT) (test code = 1742-6) 12 [facility] WlxFnumtf8248-76-81 12:58:00* Test Item Value Reference Range Interpretation Comme nts Lipase (test code = 294226446) 24 [facility] CtrALP ser/jpsh7509-03-11 12:58:00* Test Item Value Reference Range Interpretation Comme nts Total Alkaline Phosphatase ( test code = 6768-6) 80 [facility] CtrAbsolute eosinophil hzvpz4970-79-15 12:46:00* Test Item Value Reference Range Interpretation Comme nts Eosinophils # (Auto) (test c ode = FLW6829) 0.23 [facility] CtrRBC yfwxi2832-20-86 12:46:00* Test Item Value Reference Range Interpretation Comme nts Red Blood Count (test code = 79811289) 4.53 [facility] PzbMmcdhutxbt7229-16-62 12:46:00* Test Item Value Reference Range Interpretation Comme nts Hematocrit (test code = 17651346) 36.1 [facility] CtrMCV (mean corpuscular volume) determination 2024-11-15 12:46:00* Test Item Value Reference Range Interpretation Comme [facility] Mean Corpuscular Volume (shailesh t code = 38502-0) 79.7 [facility] CtrMean corpuscular hemoglobin (MCH) determination 2024-11-15 12:46:00* Test Item Value Reference Range Interpretation Comme [facility] Mean Corpuscular Hemoglobin (test code = 23078875) 25.2 [facility] CtrMean corpuscular hemoglobin concentration (MCHC) djxtxowwtqopx7094-14-68 12:46:00* Test Item Value Reference Range Interpretation Comme [facility] Mean Corpuscular Hemoglobin Concent (test code = 66291779) 31.6 [facility] CtrRBC distribution width coefficient of variation 2024-11-15 12:46:00* Test Item Value Reference Range Interpretation Comme nts Red Cell Distribution Width (test code = 49087323) 17.6 [facility] CtrPlatelet cpxdg8676-17-51 12:46:00* Test Item Value Reference Range Interpretation Comme nts Platelet Count (test code = 48896128) 378 [facility] CtrMean platelet ehaifb9436-68-09 12:46:00* Test Item Value Reference Range Interpretation Comme nts Mean Platelet Volume (test c ode = 30372911) 8.6 [facility] CtrNeutrophils seg % klf9554-12-92 12:46:00* Test Item Value Reference Range Interpretation Comme nts Neutrophils (%) (Auto) (test code = 04482-5) 62.5 [facility] CtrAbsolute immature granulocyte rqizk6198-90-10 12:46:00* Test Item Value Reference Range Interpretation Comme nts Absolute Immature Granulocyt e (auto (test code = 35346-7) 0.03 [facility] CtrBasophil % acdfyy2993-14-36 12:46:00* Test Item Value Reference Range Interpretation Comme nts Basophils (%) (Auto) (test c ode = 21688-9) 0.4 [facility] CtrBlood band neutrophils count (number/volume) 2024-11-15 12:46:00* Test Item Value Reference Range Interpretation Comme nts Neutrophils # (Auto) (test c ode = 74432-0) 5.18 [facility] CtrAbsolute lymphocyte ndiei5373-31-11 12:46:00* Test Item Value Reference Range Interpretation Comme nts Lymphocytes # (Auto) (test c ode = 66368-3) 2.32 [facility] CtrAbsolute basophil bppgw6916-48-10 12:46:00* Test Item Value Reference Range Interpretation Comme nts Basophils # (Auto) (test cod e = 83046146) 0.03 [facility] CtrAbsolute NRBC tgvmr2026-27-81 12:46:00* Test Item Value Reference Range Interpretation Comme nts Nucleated Red Blood Cells # (test code = 558017204) 0 [facility] CtrRBC count ur epcm8799-81-66 12:27:00* Test Item Value Reference Range Interpretation Comme nts Urine RBC (test code = 798-9) >100 [facility] CtrUrine examination for white blood cells (WBC) 2024-11-15 12:27:00* Test Item Value Reference Range Interpretation Comme nts Urine WBC (test code = 304392537) 0-2 [facility] CtrAutomated epithelial cells count in urine sediment (number/area)2024-11-15 12:27:00* Test Item Value Reference Range Interpretation Comme nts Urine Epithelial Cells (test code = 94075-1) 3-5 [facility] CtrBacteria detection in urine sediment by light fxurufpxfl4730-36-72 12:27:00* Test Item Value Reference Range Interpretation Comme nts Urine Bacteria (test code = 07472-8) None Seen [facility] CtrUrine casts detection by automated method 2024-11-15 12:27:00* Test Item Value Reference Range Interpretation Comme nts Urine Casts (test code = 90639-7) 0-2 [facility] CtrRBC count ur rdic6937-21-96 12:27:00* Test Item Value Reference Range Interpretation Comme nts Urine RBC (test code = 798-9) >100 [facility] CtrUrine examination for white blood cells (WBC) 2024-11-15 12:27:00* Test Item Value Reference Range Interpretation Comme nts Urine WBC (test code = 771024768) 0-2 [facility] CtrAutomated epithelial cells count in urine sediment (number/area)2024-11-15 12:27:00* Test Item Value Reference Range Interpretation Comme nts Urine Epithelial Cells (test code = 96010-9) 3-5 [facility] CtrBacteria detection in urine sediment by light rvyoevshmq0186-10-05 12:27:00* Test Item Value Reference Range Interpretation Comme nts Urine Bacteria (test code = 05320-4) None Seen [facility] CtrUrine casts detection by automated method 2024-11-15 12:27:00* Test Item Value Reference Range Interpretation Comme nts Urine Casts (test code = 83570-9) 0-2 [facility] CtrHCG ur FK8104-38-19 12:23:00* Test Item Value Reference Range Interpretation Comme nts Urine HCG, Qualitative (test code = 2106-3) NEGATIVE [facility] CtrHCG ur YO1296-39-25 12:23:00* Test Item Value Reference Range Interpretation Comme nts Urine HCG, Qualitative (test code = 2106-3) NEGATIVE [facility] CtrColor of Urine by Vfmv0763-38-56 12:22:00* Test Item Value Reference Range Interpretation Comme nts Urine Color (test code = 79585-0) Yellow [facility] CtrAppearance of Kfxet5117-75-73 12:22:00* Test Item Value Reference Range Interpretation Comme nts Urine Appearance (test code = 5767-9) Clear [facility] glucose celtcckti1698-59-61 12:22:00* Test Item Value Reference Range Interpretation Comme [facility] Urine Glucose (UA) (test cod e = 2349-9) Negative [facility] CtrBilirubin as3518-77-50 12:22:00* Test Item Value Reference Range Interpretation Comme [facility] Urine Bilirubin (test code = 693015530) Negative [facility] CtrKetones mk0811-95-49 12:22:00* Test Item Value Reference Range Interpretation Comme [facility] Urine Ketones (test code = 91147801) Negative [facility] gravity of Urine by Automated test strip 2024-11-15 12:22:00* Test Item Value Reference Range Interpretation Comme nts Urine Specific [place] (test code = 84078-1) 1.006 [facility]burg[facility]rine blood rlmffezwn9439-31-60 12:22:00* Test Item Value Reference Range Interpretation Comme [facility] Urine Blood (test code = 933855-2) 3+ (LARGE) [facility] CtrpH ly1985-71-76 12:22:00* Test Item Value Reference Range Interpretation Comme nts Urine pH (test code = 2756-5) 5.500 [facility] CtrProtein zh1991-50-11 12:22:00* Test Item Value Reference Range Interpretation Comme nts Urine Protein (test code = 16821361) Negative [facility] CtrUrobilinogen, urine, dx5327-49-23 12:22:00* Test Item Value Reference Range Interpretation Comme nts Urine Urobilinogen (test cod e = 636521003) 0.2 [facility] CtrUrine nitrate ljmskyrss5254-86-65 12:22:00* Test Item Value Reference Range Interpretation Comme nts Urine Nitrate (test code = 82657-7) Negative [facility] CtrUrine leukocyte esterase tkxxredhr0592-23-07 12:22:00* Test Item Value Reference Range Interpretation Comme nts Urine Leukocyte Esterase (te st code = 137739-3) Negative [facility] CtrColor of Urine by Voey6630-10-54 12:22:00* Test Item Value Reference Range Interpretation Comme nts Urine Color (test code = 33907-8) Yellow [facility] CtrAppearance of Aayfr0546-40-22 12:22:00* Test Item Value Reference Range Interpretation Comme nts Urine Appearance (test code = 5767-9) Clear [facility] glucose fhqsgvhcp3821-01-76 12:22:00* Test Item Value Reference Range Interpretation Comme nts Urine Glucose (UA) (test cod e = 2349-9) Negative [facility] CtrBilirubin pc1061-95-89 12:22:00* Test Item Value Reference Range Interpretation Comme nts Urine Bilirubin (test code = 792372584) Negative [facility] CtrKetones lk8770-98-99 12:22:00* Test Item Value Reference Range Interpretation Comme nts Urine Ketones (test code = 39449315) Negative [facility] CtrSpecific gravity of Urine by Automated test strip 2024-11-15 12:22:00* Test Item Value Reference Range Interpretation Comme nts Urine Specific [place] (test code = 29587-6) 1.006 [facility] CtrUrine blood hpyltvonv7181-62-51 12:22:00* Test Item Value Reference Range Interpretation Comme nts Urine Blood (test code = 688094-3) 3+ (LARGE) [facility] CtrpH av0040-57-35 12:22:00* Test Item Value Reference Range Interpretation Comme nts Urine pH (test code = 2756-5) 5.500 [facility] CtrProtein tb8365-59-16 12:22:00* Test Item Value Reference Range Interpretation Comme nts Urine Protein (test code = 79845579) Negative [facility] CtrUrobilinogen, urine, uk5198-70-76 12:22:00* Test Item Value Reference Range Interpretation Comme nts Urine Urobilinogen (test cod e = 548636350) 0.2 [facility] CtrUrine nitrate vohktzfgv9472-37-67 12:22:00* Test Item Value Reference Range Interpretation Comme nts Urine Nitrate (test code = 91028-6) Negative [facility] CtrUrine leukocyte esterase ijyeprvvb4895-26-70 12:22:00* Test Item Value Reference Range Interpretation Comme [facility] Urine Leukocyte Esterase (te st code = 565565-8) Negative [facility] CtrPOCT GQRB5317-72-60 01:45:00* Test Item Value Reference Range Interpretation Comme nts POCT PREG (test code = 1605) Negative On board controls acceptable with C Line (test code = 3574) Yes POCT PREG LOT # (test code = 3575) [id number] POCT PREG TEST DATE ( test code = 3576) 2026-01-04 Lab Interpretation (test cod e = 02043-8) Normal [facility] DallasCT Abdomen pelvis w ohtkirju9925-26-92 05:06:35Exam: CT Abdomen and Pelvis with contrast, [...] MUSCULOSKELETAL:Soft tissues: Unr emarkable.Bones: No acute osseous abnormality.[facility] Comp. Metabolic Panel (74111)2024-11-11 03:05:56* Test Item Value Reference Range Interpretation Comme nts NA (test code = 6503723973) 137 mmol/L 135-145 K (test code = 1359252761) 3.2 mmol/L 3.5-5.0 L CL (test code = 8226267044) 107 mmol/L 98-108 CO2 TOTAL (test code = 8899660521) 23 mmol/L 23-31 AGAP (test code = 4203957911) 7 2-16 BUN (test code = 6217826260) 8 mg/dL 7-23 GLUCOSE (test code = 4822810543) 93 mg/dL 70-110 CREATININE (test code = 2160-0) 0.59 mg/dL 0.50-1.04 TOTAL BILI (test code = 0908568608) 0.2 mg/dL 0.1-1.1 CALCIUM (test code = 7194790894) 9 mg/dL 8.6-10.6 T PROTEIN (test code = 0407273595) 6.5 g/dL 6.3-8.2 ALBUMIN (test code = 6744290989) 3.8 g/dL 3.5-5.0 ALK PHOS (test code = 7088606302) 56 U/L 34-122 ALTv (test code = 1742-6) 14 U/L 5-35 AST(SGOT) (test code = 3999210178) 16 U/L 13-40 eGFR (test code = 47140-2) 113.4 mL/min/1.73m2 CKD-EPI eGFR (2020). Assuming creatinine has been stable day-to-day for at least three months, the eGFR indicates Category G1 (>= 90 mL/min/1.73 m2) Lab Interpretation (test code = 95601-3) Abnormal [facility] DallasLipase2025-05-07 03:05:36* Test Item Value Reference Range Interpretation Comme nts LIPASE (test code = 0599777444) 108 U/L 0-220 Lab Interpretation (test cod e = 33211-6) Normal [facility] DallasCb with Dkhf5134-20-78 02:49:12* Test Item Value Reference Range Interpretation [...] 32.5 g/dL 31.6-35.1 RDW-SD (test code = 75401-1) 52.4 fL 39.0-49.9 H RDW-CV (test code = 788-0) 17.9 % 12.0-15.5 H PLT (test code = 777-3) 337 166-358 MPV (test code = 50483-7) 9.6 fL 9.5-12.9 NRBC/100 WBC (test code = 1216790173) 0 0.0-10.0 NRBC x10^3 (test code = 0598785615) See_Comment [Automated messa ge] The system which generated this result transmitted reference range: 10*3/?L. The reference range was not used to interpret this result as normal/abnormal. GRAN MAT (NEUT) % (test code = 770-8) 49.2 % IMM GRAN % (test code = 3049910035) 0.1 % LYMPH % (test code = 736-9) 40.4 % MONO % (test code = 5905-5) 7 % EOS % (test code = 713-8) 2.8 % BASO % (test code = 706-2) 0.5 % GRAN MAT x10^3(ANC) (test code = 3611250906) 3.86 10*3/uL 1.88-7.09 IMM GRAN x10^3 (test code = 2672179369) 0.00-0.06 LYMPH x10^3 (test code = 731-0) 3.17 10*3/uL 1.32-3.29 MONO x10^3 (test code = 742-7) 0.55 10*3/uL 0.33-0.92 EOS x10^3 (test code = 711-2) 0.22 10*3/uL 0.03-0.39 BASO x10^3 (test code = 704-7) 0.04 10*3/uL 0.01-0.07 Lab Interpretation (test code = 77197-6) Abnormal [facility] DallasPOCT BASN8599-21-55 02:26:00* Test Item Value Reference Range Interpretation Comme nts POCT PREG (test code = 1605) Negative On board controls acceptable with C Line (test code = 3574) Yes POCT PREG LOT # (test code = 3575) [id number] POCT PREG TEST DATE ( test code = 3576) 01/28/2026 Lab Interpretation (test cod e = 39822-2) Normal [facility] DallasCardiovascular Zziapbtmfybszow0512-59-22 20:32:27Left Heart Cath/Coronary Angiography Charity Roca Date of Service: 11/03/2024 ?2:55 PM Attending Physician: Dane Jurado MDFellow: Dr. JonesReferring Physician: Dr. Sandra ProceduresPerformed:LHC/Coronary Angiogram: CPT 04334XIV of mLAD: CPT 50930QMR of mRCA: CPT 77541 Indication/D iagnosis: ACS ([place]/NSTEMI) Consent: Risks, benefits, alternatives and complications of the procedure discussed with the patient, who understood and agreed to proceed. 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 ?The access site was prepped [...] FFR wire was advanced via the Guide intothe ascending aorta, where Pd/Pa equalization was again done. FFR of the mRCA was then done. Final angiography was then done. The attending physician was present throughout the procedure and providedthe highest level of supervision. Findings: Coronary dominance: right Left main: Large, long, patent LAD: Large, proximal mild LI then 30% before D1, mid mild disease then focal 50- 60% (FFR Baseline of 0.93, peak of 0.84 @ 140 mcg/Kg/min Adenosine IV)before D2, mid mil disease, then intramyocardialsegment with bridging noted, distal vessel with mild [...] FFRModerate mRCA disease. Negative FFR Plan:Monitor on TelemetryFloor ASA 81 mg daily She is currently on Plavix 75 mg daily as well Continue Crestor 40 mg daily Continue Metoprolol and Imdur Aggressive medical management Findings and plan discussed with patient Dane Jurado MD 11/03/2024 2:55 [facility]aP[facility] (for use with Heparin Infusion)2024-11-03 14:39:09* Test Item Value Reference Range Interpretation Comme [facility] APTT Patient (test code = 3173-2) 43 26-36 H Lab Interpretation (test cod e = 22774-4) Abnormal [facility] DallasaPTT (for use with Heparin Infusion)2024-11-03 14:39:09* Test Item Value Reference Range Interpretation Comme [facility] APTT Patient (test code = 3173-2) 43 26-36 H Lab Interpretation (test cod e = 00748-0) Abnormal [place] [address] Lead ROUTINE UJNR7492-97-38 09:59:09* Test Item Value Reference Range Interpretation Comme [facility] Lab Interpretation (test cod e = 41548-2) Abnormal [place] [address] Lead ROUTINE TRBW1663-96-32 09:59:09* Test Item Value Reference Range Interpretation Comme [facility] Lab Interpretation (test cod e = 03581-3) Abnormal [facility] DallasThyroid Stimulating Tsyakou7781-70-53 00:01:33 * Test Item Value Reference Range Interpretation Comme [facility] TSH (test code = 9403879368) 4.07 0.45-4.70 Biotin has been reported to cause a negative bias, interpret results relative to patient's use of biotin. Lab Interpretation (test code = 91161-9) Normal [facility] DallasThyroid Stimulating Gsnxjwq6401-02-70 00:01:33 * Test Item Value Reference Range Interpretation Comme nts TSH (test code = 1667110157) 4.07 0.45-4.70 Biotin has been reported to cause a negative bias, interpret results relative to patient's use of biotin. Lab Interpretation (test code = 28760-4) Normal [facility] DallasProthrombin Time (PT) / XTT2624-92-63 20:11:45 * Test Item Value Reference Range Interpretation Comme nts PROTIME PATIENT (test code = 5964-2) 11.3 10.1-12.6 INR (test code = 6301-6) 1 <=4.5 Normal INR <1.1; Warfarin Therapeutic range 2.0 to 3.0 or 2.5 to 3.5, depending upon the indications. Lab Interpretation (test code = 86766-5) Normal [facility] DallasaPTT2025-04-27 20:11:45* Test Item Value Reference Range Interpretation Comme [facility] APTT Patient (test code = 3173-2) 25 26-36 L DARWIN (test code = DARWIN) The [facility] patient population mean normal value for aPTT is 30 seconds. Lab Interpretation (test code = 79303-9) Abnormal [facility] DallasProthrombin Time (PT) / FGI8242-25-38 20:11:45 * Test Item Value Reference Range Interpretation Comme nts PROTIME PATIENT (test code = 5964-2) 11.3 10.1-12.6 INR (test code = 6301-6) 1 <=4.5 Normal INR <1.1; Warfarin Therapeutic range 2.0 to 3.0 or 2.5 to 3.5, depending upon the indications. Lab Interpretation (test code = 61661-0) [facility]11:45* Test Item Value Reference Range Interpretation Comme [facility] APTT Patient (test code = 3173-2) 25 26-36 L DARWIN (test code = DARWIN) The [facility] patient population mean normal value for aPTT is 30 seconds. Lab Interpretation (test code = 78081-4) [facility]normal [facility]2025-[facility]-27 17:14:31* Test Item Value Reference Range Interpretation Comme [facility] Procalcitonin (test code = 4362287461) 0.02 ng/mL <=0.07 DARWIN (test code = [...] lung abscess/empyema. For further information please refer to:[email or web address] Lab Interpretation (test code = 89916-8) Normal [facility]2025-[facility]-27 17:14:31* Test Item Value Reference Range Interpretation Comme nts Procalcitonin (test code = 4924732697) 0.02 ng/mL <=0.07 DARWIN (test code = [...] lung abscess/empyema. For further information please refer to:[email or web address] Lab Interpretation (test code = 91918-7) Normal [facility] ([facility]E) Emsmbqt5589-56-63 14:54:14* Test Item Value Reference Range Interpretation Comme nts Height (test code = 9059876798) 62 in Weight (test code = 6410982775) 240 lbs Systolic BP (test code = 9801528407) 156 mmHg Diastolic BP (test code = 2935356336) 99 mmHg Heart Rate (test code = 0615181608) 76 bpm BSA (test code = 5351589996) 2.07 m2 LVOT diameter (test code = 4092422678) 1.86 cm LVOT area (test code = 9837884326) 2.7 cm2 Ao root diam (test code = 4784014386) 3.1 cm Aortic root (test code = 9339647504) 3.1 cm Ao root annulus (test code = 8803399112) 3.1 cm LA size (test code = 6511779924) 3.7 cm LVIDD (test code = 1921180297) 3.8 cm Left Ventricular End Diastolic Volume by Teichholz Method (test code = 7673585) 63 mL IVS (test code = 1805207222) 1.35 cm Interventricular Septum Diastolic Thickness by 2D (test code = 2094088) 1.35 cm LVPWD (test code = 2323422570) 1.36 cm PW (test code = 0749549391) 1.36 cm 0.6-1.1 EF(Teich) (test code = 9489226210) 53 % LVIDS (test code = 9405760305) 2.8 cm Left Ventricular End Systolic Volume by Teichholz Method (test code = 3836529) 29.6 mL FS (test code = 9924015776) 27 % EF - 2D (test code = 71956130) 53 % LAV(MOD-sp4) (test code = 7236542372) 53.8 mL E wave decelartion time (test code = 4734495360) 0.25 s MV stenosis pressure 1/2 time (test code = 2034885852) 73.5 ms MV Peak A Edilson (test code = 7732711501) 73.2 cm/s MV Peak E Edilson (test code = 5275233605) 64.2 cm/s E/A ratio (test code = 3043090864) 0.88 ratio MV Prop V (test code = 5467808896) 62.4 cm/s MV E/e' septal (test code = 7227851283) 12.8 cm/s Tapse (test code = 6322172000) 1.58 cm LVOT stroke volume (test code = 3330391831) 60 cm3 LVOT peak edilson (test code = 6315779906) 110.2 cm/s LVOT mn grad (test code = 9855932368) 2.5 mmHg AV LVOT peak gradient (test code = 0210909903) 4.9 mmHg LVOT peak VTI (test code = 3859185989) 22.1 cm LV V1 mean (test code = 5337572488) 75.6 cm/s Aortic valve mean velocity (test code = 6525918614) 97 cm/s Ao peak edilson (test code = 1287558561) 138 cm/s Ao VTI (test code = 7487978228) 28 cm AV area by cont VTI (test code = 4076083776) 2.1 cm2 AV area peak edilson (test code = 0885939395) 2.2 cm2 Ao max PG (test code = 4148045296) 7.6 mm[Hg] AV peak gradient (test code = 0440058240) 7.6 mmHg AV valve area (test code = 4896719674) 2.14 cm2 AV mean gradient (test code = 6413764519) 4 mmHg Radiology Study observation (narrative) (test code = 04062-0) DARWIN (test code = DARWIN) ?Left?Ventricle: Left [...] mL of Optison ultrasound enhancing agent used. [facility] ([facility] Ekqxawr6241-02-11 14:54:14* Test Item Value Reference Range Interpretation Comme nts Height (test code = 1779635239) 62 in Weight (test code = 1600112890) 240 lbs Systolic BP (test code = 7805694362) 156 mmHg Diastolic BP (test code = 3751820647) 99 mmHg Heart Rate (test code = 6883956667) 76 bpm BSA (test code = 8991830379) 2.07 m2 LVOT diameter (test code = 3915484085) 1.86 cm LVOT area (test code = 6681887199) 2.7 cm2 Ao root diam (test code = 0469115547) 3.1 cm Aortic root (test code = 3929346155) 3.1 cm Ao root annulus (test code = 6527259510) 3.1 cm LA size (test code = 8330130898) 3.7 cm LVIDD (test code = 2419976584) 3.8 cm Left Ventricular End Diastolic Volume by Teichholz Method (test code = 4177182) 63 mL IVS (test code = 3988220480) 1.35 cm Interventricular Septum Diastolic Thickness by 2D (test code = 5814013) 1.35 cm LVPWD (test code = 3937260693) 1.36 cm PW (test code = 9122599940) 1.36 cm 0.6-1.1 EF(Teich) (test code = 4864328711) 53 % LVIDS (test code = 0876035860) 2.8 cm Left Ventricular End Systolic Volume by Teichholz Method (test code = 2623548) 29.6 mL FS (test code = 7303207375) 27 % EF - 2D (test code = 00577406) 53 % LAV(MOD-sp4) (test code = 3806113688) 53.8 mL E wave decelartion time (test code = 0288355603) 0.25 s MV stenosis pressure 1/2 time (test code = 6661165918) 73.5 ms MV Peak A Edilson (test code = 1457289563) 73.2 cm/s MV Peak E Edilson (test code = 1357253322) 64.2 cm/s E/A ratio (test code = 8107490382) 0.88 ratio MV Prop V (test code = 0977580260) 62.4 cm/s MV E/e' septal (test code = 8959446950) 12.8 cm/s Tapse (test code = 6473925009) 1.58 cm LVOT stroke volume (test code = 4147558518) 60 cm3 LVOT peak edilson (test code = 9154789443) 110.2 cm/s LVOT mn grad (test code = 1049400463) 2.5 mmHg AV LVOT peak gradient (test code = 4769157555) 4.9 mmHg LVOT peak VTI (test code = 8252866324) 22.1 cm LV V1 mean (test code = 6100200329) 75.6 cm/s Aortic valve mean velocity (test code = 2472648558) 97 cm/s Ao peak edilson (test code = 7967656790) 138 cm/s Ao VTI (test code = 4568870176) 28 cm AV area by cont VTI (test code = 0255417095) 2.1 cm2 AV area peak edilson (test code = 6770729194) 2.2 cm2 Ao max PG (test code = 9686831963) 7.6 mm[Hg] AV peak gradient (test code = 6778719699) 7.6 mmHg AV valve area (test code = 6874388886) 2.14 cm2 AV mean gradient (test code = 0842692096) 4 mmHg Radiology Study observation (narrative) (test code = 97706-8) DARWIN (test code = DARWIN) ?Left?Ventricle: Left [...] mL of Optison ultrasound enhancing agent used. [facility] Ojh-Rhx9299-97-27 14:40:37* Test Item Value Reference Range Interpretation Comme nts NT-proBNP (test code = 81997-8) <=125 Lab Interpretation (test cod e = 53711-9) Normal [facility] Won-Ejd6244-14-27 14:40:37* Test Item Value Reference Range Interpretation Comme nts NT-proBNP (test code = 30740-9) <=125 Lab Interpretation (test cod e = 28380-1) Normal [facility] DallasGlycosylated Hemoglobin (A1C)2024-11-01 14:39:42* Test Item Value Reference Range Interpretation Comme [facility] HGB A1C (test code = 4548-4) 5.6 % 4.0-5.7 DARWIN (test code = DARWIN) Reference RangesNormal: <5.7%Prediabetes: 5.7 - 6.4%Diabetes: > 6.5% Lab Interpretation (test code = 79349-3) Normal [facility] DallasGlycosylated Hemoglobin (A1C)2024-11-01 14:39:42* Test Item Value Reference Range Interpretation Comme [facility] HGB A1C (test code = 4548-4) 5.6 % 4.0-5.7 DARWIN (test code = DARWIN) Reference RangesNormal: <5.7%Prediabetes: 5.7 - 6.4%Diabetes: > 6.5% Lab Interpretation (test code = 72379-7) Normal [facility] DallasTroponin I3435-29-10 14:28:10* Test Item Value Reference Range Interpretation Comme nts TROPONIN I (test code = 3675466715) 0.003 ng/mL <=0.034 DARWIN (test code = [...] of biotin. Lab Interpretation (test code = 53171-0) Normal [facility] DallasTroponin O0987-80-96 14:28:10* Test Item Value Reference Range Interpretation Comme nts TROPONIN I (test code = 6079907165) 0.003 ng/mL <=0.034 DARWIN (test code = [...] of biotin. Lab Interpretation (test code = 66889-5) Normal [facility] DallasLipid Panel (59101)(Total Cholesterol, Triglycerides, HDL)2024-11-01 14:15:31* Test Item Value Reference Range Interpretation Comme nts CHOL (test code = 3821118054) 185 mg/dL 120-200 HDL (test code = 0441112014) 36 mg/dL >=50 L HDLC RATIO (test code = 6145774922) 5.1 <=4.5 H TRIG (test code = 8492729846) 219 mg/dL 30-170 H LDL CHOL (test code = 53387-8) 105 mg/dL <=160 VLDL (test code = 1370512329) 44 mg/dL 5-60 Lab Interpretation (test cod e = 42132-9) Abnormal [facility] Dallas[facility]id [facility] (81297)(Total Cholesterol, Triglycerides, HDL)2024-11-01 14:15:31* Test Item Value Reference Range Interpretation Comme nts CHOL (test code = 9473280642) 185 mg/dL 120-200 HDL (test code = 7514773970) 36 mg/dL >=50 L HDLC RATIO (test code = 1097054624) 5.1 <=4.5 H TRIG (test code = 6862853352) 219 mg/dL 30-170 H LDL CHOL (test code = 19727-5) 105 mg/dL <=160 VLDL (test code = 6590626000) 44 mg/dL 5-60 Lab Interpretation (test cod e = 70843-1) Abnormal [facility] P8998-20-01 08:18:33* Test Item Value Reference Range Interpretation Comme nts TROPONIN I (test code = 5414976089) 0.002 ng/mL <=0.034 DARWIN (test code = [...] of biotin. Lab Interpretation (test code = 80929-6) Normal [facility] Y9280-37-20 08:18:33* Test Item Value Reference Range Interpretation Comme nts TROPONIN I (test code = 3009140826) 0.002 ng/mL <=0.034 DARWIN (test code = [...] of biotin. Lab Interpretation (test code = 41004-1) Normal [facility] Metabolic Panel (NA, K, CL, CO2, GLUCOSE, BUN, CREATININE, CA)2024-11-01 08:06:31* Test Item Value Reference Range Interpretation Comme nts NA (test code = 0313359728) 138 mmol/L 135-145 K (test code = 3102468444) 3.6 mmol/L 3.5-5.0 CL (test code = 0957312920) 105 mmol/L 98-108 CO2 TOTAL (test code = 4894677488) 25 mmol/L 23-31 AGAP (test code = 2827832914) 8 2-16 BUN (test code = 0742468818) 9 mg/dL 7-23 GLUCOSE (test code = 4167052644) 113 mg/dL 70-110 H CREATININE (test code = 2160-0) 0.63 mg/dL 0.50-1.04 CALCIUM (test code = 5690975767) 9.1 mg/dL 8.6-10.6 eGFR (test code = 86154-5) 111.6 mL/min/1.73m2 CKD-EPI eGFR (2020). Assuming creatinine has been stable day-to-day for at least three months, the eGFR indicates Category G1 (>= 90 mL/min/1.73 m2) Lab Interpretation (test code = 40799-7) Abnormal [facility] Metabolic Panel (NA, K, CL, CO2, GLUCOSE, BUN, CREATININE, CA)2024-11-01 08:06:31* Test Item Value Reference Range Interpretation Comme nts NA (test code = 9947025955) 138 mmol/L 135-145 K (test code = 3991718272) 3.6 mmol/L 3.5-5.0 CL (test code = 2530383775) 105 mmol/L 98-108 CO2 TOTAL (test code = 1760874912) 25 mmol/L 23-31 AGAP (test code = 5245654990) 8 2-16 BUN (test code = 7652210369) 9 mg/dL 7-23 GLUCOSE (test code = 2516629293) 113 mg/dL 70-110 H CREATININE (test code = 2160-0) 0.63 mg/dL 0.50-1.04 CALCIUM (test code = 5808974979) 9.1 mg/dL 8.6-10.6 eGFR (test code = 01944-7) 111.6 mL/min/1.73m2 CKD-EPI eGFR (2020). Assuming creatinine has been stable day-to-day for at least three months, the eGFR indicates Category G1 (>= 90 mL/min/1.73 m2) Lab Interpretation (test code = 52918-1) Abnormal [facility] with Tgvp7206-27-19 07:51:49* Test Item Value Reference Range Interpretation [...] 32.6 g/dL 31.6-35.1 RDW-SD (test code = 28878-7) 53.2 fL 39.0-49.9 H RDW-CV (test code = 788-0) 18.6 % 12.0-15.5 H PLT (test code = 777-3) 361 166-358 H MPV (test code = 87180-4) 9.5 fL 9.5-12.9 NRBC/100 WBC (test code = 1168700990) 0 0.0-10.0 NRBC x10^3 (test code = 8834754373) See_Comment [Automated messa ge] The system which generated this result transmitted reference range: 10*3/?L. The reference range was not used to interpret this result as normal/abnormal. GRAN MAT (NEUT) % (test code = 770-8) 63.7 % IMM GRAN % (test code = 0903353118) 0.4 % LYMPH % (test code = 736-9) 26.9 % MONO % (test code = 5905-5) 7.1 % EOS % (test code = 713-8) 1.5 % BASO % (test code = 706-2) 0.4 % GRAN MAT x10^3(ANC) (test code = 6193228789) 7.23 10*3/uL 1.88-7.09 H IMM GRAN x10^3 (test code = 9048565750) 0.05 10*3/uL 0.00-0.06 LYMPH x10^3 (test code = 731-0) 3.05 10*3/uL 1.32-3.29 MONO x10^3 (test code = 742-7) 0.8 10*3/uL 0.33-0.92 EOS x10^3 (test code = 711-2) 0.17 10*3/uL 0.03-0.39 BASO x10^3 (test code = 704-7) 0.04 10*3/uL 0.01-0.07 Lab Interpretation (test code = 95129-4) Abnormal [facility] with Idim6921-41-29 07:51:49* Test Item Value Reference Range Interpretation [...] 32.6 g/dL 31.6-35.1 RDW-SD (test code = 89514-8) 53.2 fL 39.0-49.9 H RDW-CV (test code = 788-0) 18.6 % 12.0-15.5 H PLT (test code = 777-3) 361 166-358 H MPV (test code = 11868-1) 9.5 fL 9.5-12.9 NRBC/100 WBC (test code = 4937677175) 0 0.0-10.0 NRBC x10^3 (test code = 3661896436) See_Comment [Automated messa ge] The system which generated this result transmitted reference range: 10*3/?L. The reference range was not used to interpret this result as normal/abnormal. GRAN MAT (NEUT) % (test code = 770-8) 63.7 % IMM GRAN % (test code = 8137728540) 0.4 % LYMPH % (test code = 736-9) 26.9 % MONO % (test code = 5905-5) 7.1 % EOS % (test code = 713-8) 1.5 % BASO % (test code = 706-2) 0.4 % GRAN MAT x10^3(ANC) (test code = 1532548284) 7.23 10*3/uL 1.88-7.09 H IMM GRAN x10^3 (test code = 0206358251) 0.05 10*3/uL 0.00-0.06 LYMPH x10^3 (test code = 731-0) 3.05 10*3/uL 1.32-3.29 MONO x10^3 (test code = 742-7) 0.8 10*3/uL 0.33-0.92 EOS x10^3 (test code = 711-2) 0.17 10*3/uL 0.03-0.39 BASO x10^3 (test code = 704-7) 0.04 10*3/uL 0.01-0.07 Lab Interpretation (test code = 49965-4) [facility]normal [facility] 1 ji8729-64-76 03:52:49History: chest pain . Exam: XR CHEST 1 VW Date: 10/31/2024 10:00 PM Ordering provider: BOB GARCIA Comparison: 10/12/2024. Findings: Frontal view of the chest is obtained. The cardiac silhouette is normal in size. There are mild left perihilar andbibasilar opacities, which are similar on the prior. No evidence of pleuraleffusion, pneumothorax, or overt CHF.[facility] 1 uq7844-68-35 03:52:49History: chest pain . Exam: XR CHEST 1 VW Date: 10/31/2024 10:00 PM Ordering provider: BOB GARCIA Comparison: 10/12/2024. Findings: Frontal view of the chest is obtained. The cardiac silhouette is n ormal in size. There are mild left perihilar andbibasilar opacities, which are similar on the prior. No evidence of pleuraleffusion, pneumothorax, or overt CHF.[facility] DallasCT Abdomen pelvis w wfamghwn9425-50-61 04:15:32CT ABDOMEN PELVIS W CONTRAST 10/23/2024 10:24 [...] of the spine. No concerning softtissue abnormality.[facility]. Metabolic Panel (16395)2024-10-24 02:17:07* Test Item Value Reference Range Interpretation Comme nts NA (test code = 3767216791) 136 mmol/L 135-145 K (test code = 1302592622) 3.7 mmol/L 3.5-5.0 CL (test code = 9455526461) 105 mmol/L 98-108 CO2 TOTAL (test code = 5301596344) 22 mmol/L 23-31 L AGAP (test code = 8845447166) 9 2-16 BUN (test code = 8759547451) 13 mg/dL 7-23 GLUCOSE (test code = 5483260054) 106 mg/dL 70-110 CREATININE (test code = 2160-0) 0.57 mg/dL 0.50-1.04 TOTAL BILI (test code = 7030771210) 0.4 mg/dL 0.1-1.1 CALCIUM (test code = 4960677741) 9.4 mg/dL 8.6-10.6 T PROTEIN (test code = 5156519701) 7.1 g/dL 6.3-8.2 ALBUMIN (test code = 9569137997) 4 g/dL 3.5-5.0 ALK PHOS (test code = 3918477421) 64 U/L 34-122 ALTv (test code = 1742-6) 15 U/L 5-35 AST(SGOT) (test code = 8958105875) 18 U/L 13-40 eGFR (test code = 96291-2) 114.4 mL/min/1.73m2 CKD-EPI eGFR (2020). Assuming creatinine has been stable day-to-day for at least three months, the eGFR indicates Category G1 (>= 90 mL/min/1.73 m2) Lab Interpretation (test code = 63568-9) [facility]normal [facility] DallasLipase2025-04-[facility] 02:16:47* Test Item Value Reference Range Interpretation Comme nts LIPASE (test code = 2075539473) 110 U/L 0-220 Lab Interpretation (test cod e = 79047-8) Normal [facility] with Uxgc6678-90-53 02:13:50* Test Item Value Reference Range Interpretation [...] 32.9 g/dL 31.6-35.1 RDW-SD (test code = 64203-4) 52.2 fL 39.0-49.9 H RDW-CV (test code = 788-0) 17.9 % 12.0-15.5 H PLT (test code = 777-3) 337 166-358 MPV (test code = 34133-8) 9.6 fL 9.5-12.9 IPF % (test code = 0369115865) 1.6 % 1.3-7.7 Platelet count measured by fluorescence method. NRBC/100 WBC (test code = 8191862790) 0 0.0-10.0 NRBC x10^3 (test code = 1718030637) See_Comment [Automated messa ge] The system which generated this result transmitted reference range: 10*3/?L. The reference range was not used to interpret this result as normal/abnormal. GRAN MAT (NEUT) % (test code = 770-8) 62.2 % IMM GRAN % (test code = 4956699374) 0.3 % LYMPH % (test code = 736-9) 29.3 % MONO % (test code = 5905-5) 6.2 % EOS % (test code = 713-8) 1.6 % BASO % (test code = 706-2) 0.4 % GRAN MAT x10^3(ANC) (test code = 1028150365) 6.92 10*3/uL 1.88-7.09 IMM GRAN x10^3 (test code = 2623743813) 0.03 10*3/uL 0.00-0.06 LYMPH x10^3 (test code = 731-0) 3.26 10*3/uL 1.32-3.29 MONO x10^3 (test code = 742-7) 0.69 10*3/uL 0.33-0.92 EOS x10^3 (test code = 711-2) 0.18 10*3/uL 0.03-0.39 BASO x10^3 (test code = 704-7) 0.05 10*3/uL 0.01-0.07 Lab Interpretation (test code = 67785-6) [facility] stimulating hormone (TSH) xtqnytgjdde4532-71-42 10:14:00* Test Item Value Reference Range Interpretation Comme nts Thyroid Stimulating Hormone (TSH) (test code = 3016-3) 2.58 [facility] J52786-27-23 10:14:00* Test Item Value Reference Range Interpretation Comme nts Free Thyroxine (test code = 3104057) 1.18 [facility] plasma creatine kinase MB (CK-MB) measurement by immunoassay (mass/volume)2024-10-14 10:14:00* Test Item Value Reference Range Interpretation Comme nts Creatine Kinase MB (test cod e = 06124-1) < 1.0 [facility] or plasma cardiac troponin I panel by high sensitivity hhkifq4898-02-31 10:14:00* Test Item Value Reference Range Interpretation Comme nts Troponin T High Sensitivity (test code = 50467-0) 8.2 [facility] or plasma thyroid stimulating hormone (TSH) enonlqjmgjf4215-67-79 10:14:00* Test Item Value Reference Range Interpretation Comme nts Thyroid Stimulating Hormone (TSH) (test code = 3016-3) 2.58 [facility]burgFr E01059-80-04 10:14:00* Test Item Value Reference Range Interpretation Comme nts Free Thyroxine (test code = 2923725) 1.18 [facility] CtrSerum or plasma creatine kinase MB (CK-MB) measurement by immunoassay (mass/volume)2024-10-14 10:14:00* Test Item Value Reference Range Interpretation Comme nts Creatine Kinase MB (test cod e = 74080-9) < 1.0 [facility] CtrSerum or plasma cardiac troponin I panel by high sensitivity kyncgi4790-27-86 10:14:00* Test Item Value Reference Range Interpretation Comme nts Troponin T High Sensitivity (test code = 21802-6) 8.2 [facility] CtrSerum or plasma thyroid stimulating hormone (TSH) qhtwdqiejbt2421-43-85 10:14:00* Test Item Value Reference Range Interpretation Comme nts Thyroid Stimulating Hormone (TSH) (test code = 3016-3) 2.58 [facility]burg[facility] O29236-12-53 10:14:00* Test Item Value Reference Range Interpretation Comme nts Free Thyroxine (test code = 3094468) 1.18 [facility] CmyDttmcnyycx2214-31-61 10:09:00* Test Item Value Reference Range Interpretation Comme nts Phosphorus Level (test code = FVH7001) 3.3 [facility] CtrCreatine kinase qyuhewlqqmi4854-74-75 10:09:00* Test Item Value Reference Range Interpretation Comme nts Creatine Kinase (test code = 064519889) 32 [facility] PvyHliryrlvfx4407-39-93 10:09:00* Test Item Value Reference Range Interpretation Comme nts Phosphorus Level (test code = JAR4597) 3.3 [facility] CtrCreatine kinase xekpgdttszi9247-05-90 10:09:00* Test Item Value Reference Range Interpretation Comme nts Creatine Kinase (test code = 398652043) 32 [facility] JgsCboydjnqve8458-40-54 10:09:00* Test Item Value Reference Range Interpretation Comme nts Phosphorus Level (test code = QGR7878) 3.3 [facility] CtrChloride rlrelbsmimb3759-02-62 05:44:00* Test Item Value Reference Range Interpretation Comme nts Chloride Level (test code = FGD2090) 105 [facility] CtrSerum or plasma urea nitrogen measurement (mass/volume)2024-10-14 05:44:00* Test Item Value Reference Range Interpretation Comme nts Blood Urea Nitrogen (test co de = 3094-0) 8 [facility] CtrOsmolality vfu5399-14-14 05:44:00* Test Item Value Reference Range Interpretation Comme nts Serum Osmolality (test code = MVP0954) 274 [facility] CtrCreatinine kanbt5520-04-51 05:44:00* Test Item Value Reference Range Interpretation Comme nts Creatinine (test code = 526658887) 0.43 [facility] CtrEstimated glomerular filtration rate (GFR) vqnrwuhnvcdje5691-40-52 05:44:00* Test Item Value Reference Range Interpretation Comme [facility] Glomerular Filtration Rate C alc (test code = 887395209) > 60.00 [facility] CtrBUN/creatinine xtyca8680-15-93 05:44:00* Test Item Value Reference Range Interpretation Comme [facility] BUN/Creatinine Ratio (test c ode = 04554313) 18.6 [facility] CtrBody fluid potassium eidjxkwzrzl0340-54-61 05:44:00* Test Item Value Reference Range Interpretation Comme nts Potassium Level (test code = 2821-7) 3.8 [facility] PuhCI09562-76-64 05:44:00* Test Item Value Reference Range Interpretation Comme nts Carbon Dioxide Level (test c ode = 84755099) 24 [facility] CtrAnion gap wwibeklcedy4282-80-93 05:44:00* Test Item Value Reference Range Interpretation Comme nts Anion Gap (test code = 52571304) 12.8 [facility] CtrCalcium mdsmx1573-18-40 05:44:00* Test Item Value Reference Range Interpretation Comme nts Calcium Level (test code = 90518085) 8.7 [facility] CtrAbsolute eosinophil dkuao4869-12-35 05:25:00* Test Item Value Reference Range Interpretation Comme nts Eosinophils # (Auto) (test c ode = LXR3891) 0.26 [facility] CtrRBC alpgl2859-98-32 05:25:00* Test Item Value Reference Range Interpretation Comme [facility] Red Blood Count (test code = 29112176) 4.12 [facility] JspUcuafnidcs1856-51-28 05:25:00* Test Item Value Reference Range Interpretation Comme nts Hematocrit (test code = 39281669) 32.9 [facility] CtrMCV (mean corpuscular volume) determination 2024-10-14 05:25:00* Test Item Value Reference Range Interpretation Comme [facility] Mean Corpuscular Volume (shailesh t code = 46691-9) 79.9 [facility] CtrMean corpuscular hemoglobin (MCH) determination 2024-10-14 05:25:00* Test Item Value Reference Range Interpretation Comme [facility] Mean Corpuscular Hemoglobin (test code = 48020956) 25.2 [facility] CtrMean corpuscular hemoglobin concentration (MCHC) [id number] 05:25:00* Test Item Value Reference Range Interpretation Comme [facility] Mean Corpuscular Hemoglobin Concent (test code = 16080288) 31.6 [facility] CtrRBC distribution width coefficient of variation 2024-10-14 05:25:00* Test Item Value Reference Range Interpretation Comme [facility] Red Cell Distribution Width (test code = 78751919) 18.2 [facility] CtrPlatelet [id number] 05:25:00* Test Item Value Reference Range Interpretation Comme [facility] Platelet Count (test code = 94117228) [address] [place] [facility]trMean platelet lnjxqc8856-18-08 05:25:00* Test Item Value Reference Range Interpretation Comme [facility] Mean Platelet Volume (test c ode = 06800050) 8.9 [facility] CtrNeutrophils seg % uak6300-60-22 05:25:00* Test Item Value Reference Range Interpretation Comme nts Neutrophils (%) (Auto) (test code = 18326-8) 52.7 [facility] CtrAbsolute immature granulocyte afnpg1738-46-48 05:25:00* Test Item Value Reference Range Interpretation Comme nts Absolute Immature Granulocyt e (auto (test code = 91394-1) 0.03 [facility] CtrBasophil % uswgop9034-81-75 05:25:00* Test Item Value Reference Range Interpretation Comme nts Basophils (%) (Auto) (test c ode = 81326-9) 0.4 [facility] CtrBlood band neutrophils count (number/volume) 2024-10-14 05:25:00* Test Item Value Reference Range Interpretation Comme nts Neutrophils # (Auto) (test c ode = 87907-2) 3.96 [facility] CtrAbsolute lymphocyte gfbde1002-52-94 05:25:00* Test Item Value Reference Range Interpretation Comme nts Lymphocytes # (Auto) (test c ode = 86544-3) 2.63 [facility] CtrAbsolute basophil prnaw5929-63-30 05:25:00* Test Item Value Reference Range Interpretation Comme nts Basophils # (Auto) (test cod e = 27861679) 0.03 [facility] CtrAbsolute NRBC nsnub1854-30-23 05:25:00* Test Item Value Reference Range Interpretation Comme nts Nucleated Red Blood Cells # (test code = 989217669) 0 [facility] CesBcihdnude6519-56-75 01:01:00* Test Item Value Reference Range Interpretation Comme nts Magnesium Level (test code = 62856102) 1.8 [facility] CtrTriglycerides nzpdl0704-73-61 01:01:00* Test Item Value Reference Range Interpretation Comme nts Triglycerides Level (test co de = WMM5753) 193 [facility] NemDHO1234-20-06 01:01:00* Test Item Value Reference Range Interpretation Comme nts HDL Cholesterol (test code = 74454829) 41 [facility] CtrLDL cholesterol, ugxmhn9851-98-55 01:01:00* Test Item Value Reference Range Interpretation Comme nts LDL Cholesterol (test code = 046068493) 102 [facility] CtrCholesterol/HDL zanjy7136-49-84 01:01:00* Test Item Value Reference Range Interpretation Comme nts Coronary Heart Disease Risk Ratio (test code = 226937239) 4.170 [facility] NxdEuqsucjki7401-68-60 01:01:00* Test Item Value Reference Range Interpretation Comme nts Magnesium Level (test code = 88781066) 1.8 [facility] CtrTriglycerides akcro8344-83-02 01:01:00* Test Item Value Reference Range Interpretation Comme nts Triglycerides Level (test co de = AOI7087) 193 [facility] KhhJIA3391-42-87 01:01:00* Test Item Value Reference Range Interpretation Comme nts HDL Cholesterol (test code = 43572443) 41 [facility] CtrLDL cholesterol, dydxot5450-76-47 01:01:00* Test Item Value Reference Range Interpretation Comme nts LDL Cholesterol (test code = 136099135) 102 [facility] CtrCholesterol/HDL lnfoh8636-24-04 01:01:00* Test Item Value Reference Range Interpretation Comme nts Coronary Heart Disease Risk Ratio (test code = 767638756) 4.170 [facility] AskMtzinwypa1971-46-77 01:01:00* Test Item Value Reference Range Interpretation Comme nts Magnesium Level (test code = 18009503) 1.8 [facility] CtrTriglycerides rbaod6623-25-88 01:01:00* Test Item Value Reference Range Interpretation Comme nts Triglycerides Level (test co de = MUP7982) 193 [facility]HDL2025-04-09 01:01:00* Test Item Value Reference Range Interpretation Comme nts HDL Cholesterol (test code = 96900940) 41 [facility] CtrLDL cholesterol, iaejmd4480-22-98 01:01:00* Test Item Value Reference Range Interpretation Comme nts LDL Cholesterol (test code = 954308666) 102 [facility] CtrCholesterol/HDL zjshx1018-34-21 01:01:00* Test Item Value Reference Range Interpretation Comme nts Coronary Heart Disease Risk Ratio (test code = 886925753) 4.170 [facility] CtrHemoglobin R0z9809-88-27 00:04:00* Test Item Value Reference Range Interpretation Comme nts Hemoglobin A1c (test code = 81974-2) 5.4 [facility] CtrHemoglobin A7i0501-04-36 00:04:00* Test Item Value Reference Range Interpretation Comme nts Hemoglobin A1c (test code = 99711-2) 5.4 [facility] CtrHemoglobin G0g6610-91-28 00:04:00* Test Item Value Reference Range Interpretation Comme nts Hemoglobin A1c (test code = 10346-2) 5.4 [facility] CtrHCG ur AM9093-92-29 20:31:00* Test Item Value Reference Range Interpretation Comme nts Urine HCG, Qualitative (test code = 2106-3) NEGATIVE [facility] CtrNT-proBNP fdiunwulyjk9988-14-30 20:02:00* Test Item Value Reference Range Interpretation Comme nts JR-Gfl-J-Type Natriuretic Pe ptide (test code = 077997253) 57 [facility] CtrNT-proBNP uporalakziu4233-28-25 20:02:00* Test Item Value Reference Range Interpretation Comme nts LM-Nci-C-Type Natriuretic Pe ptide (test code = 827311623) 57 [facility] XuxF-orkso0660-85-08 20:01:00* Test Item Value Reference Range Interpretation Comme nts D-Dimer (test code = 040936943) 246 [facility]-howjb5789-12-66 20:01:00* Test Item Value Reference Range Interpretation Comme nts D-Dimer (test code = 533159369) 246 [facility] ThuQrmwbl2558-96-99 20:00:00* Test Item Value Reference Range Interpretation Comme nts Lipase (test code = 078833001) 27 [facility] CtrBilirubin qetch4367-13-00 19:57:00* Test Item Value Reference Range Interpretation Comme nts Total Bilirubin (test code = WXL5235) < 0.2 [facility] CzaCSK1282-30-09 19:57:00* Test Item Value Reference Range Interpretation Comme nts Aspartate Amino Transf (AST/ SGOT) (test code = VZE9108) 14 [facility] CtrGlobulin qlc6871-46-01 19:57:00* Test Item Value Reference Range Interpretation Comme nts Globulin (test code = 198383152) 2.5 [facility] CtrALT (SGPT) ser/iarh1737-71-35 19:57:00* Test Item Value Reference Range Interpretation Comme nts Alanine Aminotransferase (AL T/SGPT) (test code = 1742-6) 11 [facility] CtrALP ser/zamj8190-93-43 19:57:00* Test Item Value Reference Range Interpretation Comme nts Total Alkaline Phosphatase ( test code = 6768-6) 65 [facility] CtrProthrombin owdi3154-67-26 19:53:00* Test Item Value Reference Range Interpretation Comme nts Prothrombin Time (test code = 947969711) 10.5 [facility] INR tfedlgounsb2339-81-89 19:53:00* Test Item Value Reference Range Interpretation Comme nts Prothromb Time International Ratio (test code = 87167-2) 0.96 [facility] CtrActivated partial thromboplastin time (aPTT) in platelet poor plasma by coagulation xunjh5633-86-06 19:53:00* Test Item Value Reference Range Interpretation Comme nts Activated Partial Thrombopla st Time (test code = 42816-8) 24.2 [facility] CtrProthrombin wlpu5039-21-00 19:53:00* Test Item Value Reference Range Interpretation Comme nts Prothrombin Time (test code = 285128348) 10.5 [facility] INR cpvlrjsezta9916-26-65 19:53:00* Test Item Value Reference Range Interpretation Comme nts Prothromb Time International Ratio (test code = 11374-2) 0.96 [facility] CtrActivated partial thromboplastin time (aPTT) in platelet poor plasma by coagulation pstil7132-85-03 19:53:00* Test Item Value Reference Range Interpretation Comme nts Activated Partial Thrombopla st Time (test code = 85290-5) 24.2 [facility] CtrRBC count ur pjnv5008-14-62 19:51:00* Test Item Value Reference Range Interpretation Comme nts Urine RBC (test code = 798-9) 0-2 [facility] CtrUrine examination for white blood cells (WBC) 2024-10-13 19:51:00* Test Item Value Reference Range Interpretation Comme nts Urine WBC (test code = 715458611) 3-5 [facility] CtrAutomated epithelial cells count in urine sediment (number/area)2024-10-13 19:51:00* Test Item Value Reference Range Interpretation Comme nts Urine Epithelial Cells (test code = 87164-8) More than 20/HPF [facility] CtrBacteria detection in urine sediment by light jqepgivkks7389-58-09 19:51:00* Test Item Value Reference Range Interpretation Comme nts Urine Bacteria (test code = 64744-6) Occasional [facility] CtrUrine casts detection by automated method 2024-10-13 19:51:00* Test Item Value Reference Range Interpretation Comme nts Urine Casts (test code = 93829-1) 0-2 [facility] CtrColor of Urine by Pgyp5580-14-95 19:46:00* Test Item Value Reference Range Interpretation Comme nts Urine Color (test code = 95970-6) Yellow [facility] CtrAppearance of Dwudu7568-94-25 19:46:00* Test Item Value Reference Range Interpretation Comme nts Urine Appearance (test code = 5767-9) Cloudy [facility] glucose ukjiwlkum2260-85-96 19:46:00* Test Item Value Reference Range Interpretation Comme nts Urine Glucose (UA) (test cod e = 2349-9) Negative [facility] CtrBilirubin ls8496-70-69 19:46:00* Test Item Value Reference Range Interpretation Comme nts Urine Bilirubin (test code = 239846075) Negative [facility] CtrKetones ix2959-18-45 19:46:00* Test Item Value Reference Range Interpretation Comme nts Urine Ketones (test code = 56144507) Negative [facility] CtrSpecific gravity of Urine by Automated test strip 2024-10-13 19:46:00* Test Item Value Reference Range Interpretation Comme nts Urine Specific [place] (test code = 75690-0) 1.025 [facility] blood bfdlvkohm9419-56-75 19:46:00* Test Item Value Reference Range Interpretation Comme nts Urine Blood (test code = 951616-7) Negative [facility] CtrpH zh5325-45-27 19:46:00* Test Item Value Reference Range Interpretation Comme nts Urine pH (test code = 2756-5) 5.500 [facility] CtrProtein gg5675-93-11 19:46:00* Test Item Value Reference Range Interpretation Comme nts Urine Protein (test code = 29883739) Negative [facility] CtrUrobilinogen, urine, rn4274-89-10 19:46:00* Test Item Value Reference Range Interpretation Comme nts Urine Urobilinogen (test cod e = 920628442) 1.0 [facility] nitrate xyzpycljv6481-61-76 19:46:00* Test Item Value Reference Range Interpretation Comme [facility] Urine Nitrate (test code = 17180-7) Negative [facility] leukocyte esterase gwtizkaqn9525-74-36 19:46:00* Test Item Value Reference Range Interpretation Comme [facility] Urine Leukocyte Esterase (te st code = 829370-0) Negative [facility] CtrTroponin K8614-49-56 07:13:54* Test Item Value Reference Range Interpretation Comme nts TROPONIN I (test code = 4677320368) 0.002 ng/mL <=0.034 DARWNI (test code = DARWIN) Reference (Normal) Range [...] of biotin. Lab Interpretation (test code = 23394-4) Normal [facility] Dallas[facility] M2831-77-95 05:06:47* Test Item Value Reference Range Interpretation Comme nts TROPONIN I (test code = 1782739202) 0.001 ng/mL <=0.034 DARWIN (test code = [...] of biotin. Lab Interpretation (test code = 66791-1) Normal [facility] Dallas[facility]inal Knt-Bgg8925-76-08 05:04:06* Test Item Value Reference Range Interpretation Comme nts NT-proBNP (test code = 80737-4) 110 pg/mL <=125 Lab Interpretation (test cod e = 12040-4) Normal [facility] DallasComp. Metabolic Panel (07205)2024-10-13 04:55:24* Test Item Value Reference Range Interpretation Comme nts NA (test code = 2801070416) 135 mmol/L 135-145 K (test code = 9457622436) 3.5 mmol/L 3.5-5.0 CL (test code = 2595701467) 104 mmol/L 98-108 CO2 TOTAL (test code = 1271323939) 25 mmol/L 23-31 AGAP (test code = 4613396658) 6 2-16 BUN (test code = 3155692036) 12 mg/dL 7-23 GLUCOSE (test code = 5777538705) 83 mg/dL 70-110 CREATININE (test code = 2160-0) 0.55 mg/dL 0.50-1.04 TOTAL BILI (test code = 9200931029) 0.2 mg/dL 0.1-1.1 CALCIUM (test code = 2219251721) 9.2 mg/dL 8.6-10.6 T PROTEIN (test code = 2655856098) 6.3 g/dL 6.3-8.2 ALBUMIN (test code = 0398244850) 3.5 g/dL 3.5-5.0 ALK PHOS (test code = 2880346842) 58 U/L 34-122 ALTv (test code = 1742-6) 12 U/L 5-35 AST(SGOT) (test code = 3637526670) 13 U/L 13-40 eGFR (test code = 39148-3) 115.4 mL/min/1.73m2 CKD-EPI eGFR (20 21). Assuming creatinine has been stable day-to-day for at least three months, the eGFR indicates Category G1 (>= 90 mL/min/1.73 m2) [facility] Dallas[facility]ase2025-04-08 04:55:03* Test Item Value Reference Range Interpretation Comme nts LIPASE (test code = 1258389469) 80 U/L 0-220 Lab Interpretation (test cod e = 28050-4) Normal [facility] DallasCbc with Cekm7431-67-17 04:41:23* Test Item Value Reference Range Interpretation [...] 32.1 g/dL 31.6-35.1 RDW-SD (test code = 71422-9) 51.6 fL 39.0-49.9 H RDW-CV (test code = 788-0) 17.9 % 12.0-15.5 H PLT (test code = 777-3) 328 166-358 MPV (test code = 18982-8) 8.9 fL 9.5-12.9 L NRBC/100 WBC (test code = 0813616839) 0.0 0.0-10.0 NRBC x10^3 (test code = 8880288213) See_Comment [Automated messa ge] The system which generated this result transmitted reference range: 10*3/?L. The reference range was not used to interpret this result as normal/abnormal. GRAN MAT (NEUT) % (test code = 770-8) 60.6 % IMM GRAN % (test code = 3231259500) 0.60 % LYMPH % (test code = 736-9) 31.0 % MONO % (test code = 5905-5) 5.9 % EOS % (test code = 713-8) 1.5 % BASO % (test code = 706-2) 0.4 % GRAN MAT x10^3(ANC) (test code = 9369641725) 6.12 10*3/uL 1.88-7.09 IMM GRAN x10^3 (test code = 0023818903) 0.06 10*3/uL 0.00-0.06 LYMPH x10^3 (test code = 731-0) 3.13 10*3/uL 1.32-3.29 MONO x10^3 (test code = 742-7) 0.60 10*3/uL 0.33-0.92 EOS x10^3 (test code = 711-2) 0.15 10*3/uL 0.03-0.39 BASO x10^3 (test code = 704-7) 0.04 10*3/uL 0.01-0.07 Lab Interpretation (test code = 66947-5) Abnormal [facility] DallasPO[facility] WHWF2180-10-86 03:46:00* Test Item Value Reference Range Interpretation Comme nts POCT PREG (test code = 1605) Negative On board controls acceptable with C Line (test code = 3574) Yes POCT PREG LOT # (test code = 3575) [id number] POCT PREG TEST DATE ( test code = 3576) 11/30/2025 Lab Interpretation (test cod e = 98440-8) Normal [facility] Chest pulmonary iioijhbqt0118-14-87 06:33:58Exam: CT Angiography Chest with Contrast, 07/18/2024 [...] the spleen. Osseous: No acute osseous finding. [facility] DallasCT Abdomen pelvis w gwhocdjz4970-76-13 06:50:04Exam: CT Abdomen and Pelvis With Contrast, [...] ?There is nopelvic adenopathy. Osseous/Soft Tissues: Unremarkable. [facility] DallasPO[facility] BNLS7186-15-21 05:33:00* Test Item Value Reference Range Interpretation Comme nts POCT PREG (test code = 1605) Negative On board controls acceptable with C Line (test code = 3574) Yes POCT PREG LOT # (test code = 3575) [id number] POCT PREG TEST DATE ( test code = 3576) 2025-06-22 Lab Interpretation (test cod e = 04135-2) Normal [facility] DallasComplete Metabolic Awszw1792-94-76 04:06:42* Test Item Value Reference Range Interpretation Comme nts NA (test code = 1919392598) 139 mmol/L 135-145 K (test code = 4343049773) 3.5 mmol/L 3.5-5.0 CL (test code = 2185849958) 105 mmol/L 98-108 CO2 TOTAL (test code = 3588512809) 26 mmol/L 23-31 AGAP (test code = 6713242545) 8 2-16 BUN (test code = 9221448775) 5 mg/dL 7-23 L GLUCOSE (test code = 7368697913) 101 mg/dL 70-110 CREATININE (test code = 2160-0) 0.58 mg/dL 0.50-1.04 TOTAL BILI (test code = 0873213813) 0.1-1.1 L CALCIUM (test code = 3099800043) 9.3 mg/dL 8.6-10.6 T PROTEIN (test code = 9291160570) 6.8 g/dL 6.3-8.2 ALBUMIN (test code = 4062289454) 3.9 g/dL 3.5-5.0 ALK PHOS (test code = 4631307232) 74 U/L 34-122 ALTv (test code = 1742-6) 17 U/L 5-35 AST(SGOT) (test code = 3453751768) 28 U/L 13-40 eGFR (test code = 69264-9) 113.9 mL/min/1.73m2 CKD-EPI eGFR (2021). Assuming creatinine has been stable day-to-day for at least three months, the eGFR indicates Category G1 (>= 90 mL/min/1.73 m2) Lab Interpretation (test code = 06281-5) Abnormal [facility] DallasLip[facility], Hgevi4264-89-40 04:01:05* Test Item Value Reference Range Interpretation Comme nts LIPASE (test code = 8767530289) 80 U/L 0-220 Lab Interpretation (test cod e = 48204-6) Normal [facility] DallasCBC with Dehpnhfwtbnh1150-46-59 03:46:26* Test Item Value Reference Range Interpretation [...] 33.2 g/dL 31.6-35.1 RDW-SD (test code = 45303-1) 42.5 fL 39.0-49.9 RDW-CV (test code = 788-0) 14.6 % 12.0-15.5 PLT (test code = 777-3) 327 166-358 MPV (test code = 05600-4) 9.3 fL 9.5-12.9 L NRBC/100 WBC (test code = 4092832414) 0.0 0.0-10.0 NRBC x10^3 (test code = 6650768112) See_Comment [Automated messa ge] The system which generated this result transmitted reference range: 10*3/?L. The reference range was not used to interpret this result as normal/abnormal. GRAN MAT (NEUT) % (test code = 770-8) 65.7 % IMM GRAN % (test code = 7707348477) 0.50 % LYMPH % (test code = 736-9) 26.4 % MONO % (test code = 5905-5) 5.6 % EOS % (test code = 713-8) 1.4 % BASO % (test code = 706-2) 0.4 % GRAN MAT x10^3(ANC) (test code = 8860764738) 8.21 10*3/uL 1.88-7.09 H IMM GRAN x10^3 (test code = 1640574450) 0.06 10*3/uL 0.00-0.06 LYMPH x10^3 (test code = 731-0) 3.30 10*3/uL 1.32-3.29 H MONO x10^3 (test code = 742-7) 0.70 10*3/uL 0.33-0.92 EOS x10^3 (test code = 711-2) 0.17 10*3/uL 0.03-0.39 BASO x10^3 (test code = 704-7) 0.05 10*3/uL 0.01-0.07 Lab Interpretation (test code = 09636-0) Abnormal [facility] Abdomen pelvis w lzauqvke8003-07-40 05:39:04CT ABDOMEN PELVIS W CONTRAST HISTORY: 44 [...] No suspicious lytic or sclerotic bony lesions.[facility]. Metabolic Panel (53102)2024-06-15 05:12:33* Test Item Value Reference Range Interpretation Comme nts NA (test code = 9656862849) 139 mmol/L 135-145 K (test code = 1033780696) 3.7 mmol/L 3.5-5.0 CL (test code = 7619812436) 109 mmol/L 98-108 H CO2 TOTAL (test code = 9479390627) 23 mmol/L 23-31 AGAP (test code = 5955793499) 7 2-16 BUN (test code = 8207922678) 6 mg/dL 7-23 L GLUCOSE (test code = 1916475779) 101 mg/dL 70-110 CREATININE (test code = 2160-0) 0.67 mg/dL 0.50-1.04 TOTAL BILI (test code = 9454013435) 0.1-1.1 L CALCIUM (test code = 0008006790) 9.4 mg/dL 8.6-10.6 T PROTEIN (test code = 1821202422) 7.0 g/dL 6.3-8.2 ALBUMIN (test code = 3233118694) 4.0 g/dL 3.5-5.0 ALK PHOS (test code = 9810843152) 87 U/L 34-122 ALTv (test code = 1742-6) 28 U/L 5-35 AST(SGOT) (test code = 9719515554) 24 U/L 13-40 eGFR (test code = 66409-0) 110.0 mL/min/1.73m2 CKD-EPI eGFR (2020). Assuming creatinine has been stable day-to-day for at least three months, the eGFR indicates Category G1 (>= 90 mL/min/1.73 m2) Lab Interpretation (test code = 51042-4) Abnormal [facility] DallasTroponin M1449-97-89 05:03:33* Test Item Value Reference Range Interpretation Comme nts TROPONIN I (test code = 9489545148) 0.000 ng/mL <=0.034 DARWIN (test code = [...] of biotin. Lab Interpretation (test code = 93077-6) Normal [facility] DallasLipase2024-12-09 04:51:35* Test Item Value Reference Range Interpretation Comme nts LIPASE (test code = 6993874666) 94 U/L 0-220 Lab Interpretation (test cod e = 61660-8) Normal [facility] DallasPregnancy Test, Ubcjo4970-07-11 04:51:30* Test Item Value Reference Range Interpretation Comme nts PREG SERUM (test code = 9722313074) Negative DARWIN (test code = DARWIN) Less than 10 IU/L. ?If low titer or ectopic is suspected, resubmit specimen in 48-72 hours. [facility] DallasCb with Wthn8462-89-23 04:36:57* Test Item Value Reference Range Interpretation [...] 32.9 g/dL 31.6-35.1 RDW-SD (test code = 58715-6) 44.3 fL 39.0-49.9 RDW-CV (test code = 788-0) 15.0 % 12.0-15.5 PLT (test code = 777-3) 347 166-358 MPV (test code = 43157-3) 9.4 fL 9.5-12.9 L NRBC/100 WBC (test code = 9937968677) 0.0 0.0-10.0 NRBC x10^3 (test code = 3769197952) See_Comment [Automated messa ge] The system which generated this result transmitted reference range: 10*3/?L. The reference range was not used to interpret this result as normal/abnormal. GRAN MAT (NEUT) % (test code = 770-8) 60.2 % IMM GRAN % (test code = 1829452594) 0.40 % LYMPH % (test code = 736-9) 31.3 % MONO % (test code = 5905-5) 5.8 % EOS % (test code = 713-8) 1.8 % BASO % (test code = 706-2) 0.5 % GRAN MAT x10^3(ANC) (test code = 3034006476) 6.36 10*3/uL 1.88-7.09 IMM GRAN x10^3 (test code = 6639026704) 0.04 10*3/uL 0.00-0.06 LYMPH x10^3 (test code = 731-0) 3.30 10*3/uL 1.32-3.29 H MONO x10^3 (test code = 742-7) 0.61 10*3/uL 0.33-0.92 EOS x10^3 (test code = 711-2) 0.19 10*3/uL 0.03-0.39 BASO x10^3 (test code = 704-7) 0.05 10*3/uL 0.01-0.07 Lab Interpretation (test code = 28938-3) Abnormal [facility] Q9478-99-84 07:55:17* Test Item Value Reference Range Interpretation Comme nts TROPONIN I (test code = 6969832512) 0.000 ng/mL <=0.034 DARWIN (test code = [...] of biotin. Lab Interpretation (test code = 22781-0) Normal [facility] DallasXR CHEST 1 YQ4768-47-07 06:16:28Exam: Chest (1 View), 06/06/2024 11:30 PM. Ordering Physician: BOB GARCIA. History: Chest pain. Technique: AP view of the chest. Technical Quality: Adequate. Comparison: Chest radiograph 05/17/2024. Findings: Normal cardiac silhouette size. ?No airspace consolidation, pleuraleffusion, or pneumothorax. No acute osseous abnormality.[facility] DallasPO[facility] TCYQ2579-00-59 05:19:00* Test Item Value Reference Range Interpretation Comme nts POCT PREG (test code = 1605) Negative On board controls acceptable with C Line (test code = 3574) Yes POCT PREG LOT # (test code = 3575) [id number] POCT PREG TEST DATE ( test code = 3576) 04/11/2025 Lab Interpretation (test cod e = 69098-0) Normal [facility] DallasTroponin J8636-08-61 05:00:24* Test Item Value Reference Range Interpretation Comme nts TROPONIN I (test code = 8281059759) 0.000 ng/mL <=0.034 DARWIN (test code = [...] of biotin. Lab Interpretation (test code = 68448-8) Normal [facility] Dallas[facility]. Metabolic Panel (04609)2024-06-07 05:00:19* Test Item Value Reference Range Interpretation Comme nts NA (test code = 5073087581) 139 mmol/L 135-145 K (test code = 0530700010) 3.6 mmol/L 3.5-5.0 CL (test code = 9090951945) 108 mmol/L 98-108 CO2 TOTAL (test code = 2617178212) 22 mmol/L 23-31 L AGAP (test code = 1878552085) 9 2-16 BUN (test code = 4880821628) 10 mg/dL 7-23 GLUCOSE (test code = 4558997654) 144 mg/dL 70-110 H CREATININE (test code = 2160-0) 0.62 mg/dL 0.50-1.04 TOTAL BILI (test code = 4411995206) 0.1-1.1 L CALCIUM (test code = 8268191157) 9.2 mg/dL 8.6-10.6 T PROTEIN (test code = 8624114979) 6.5 g/dL 6.3-8.2 ALBUMIN (test code = 7361973150) 3.7 g/dL 3.5-5.0 ALK PHOS (test code = 8110753702) 69 U/L 34-122 ALTv (test code = 1742-6) 14 U/L 5-35 AST(SGOT) (test code = 5686884445) 15 U/L 13-40 eGFR (test code = 17718-0) 112.1 mL/min/1.73m2 CKD-EPI eGFR (2020). Assuming creatinine has been stable day-to-day for at least three months, the eGFR indicates Category G1 (>= 90 mL/min/1.73 m2) Lab Interpretation (test code = 82903-4) Abnormal [facility] with Nvyr6447-52-85 04:38:25* Test Item Value Reference Range Interpretation [...] 32.8 g/dL 31.6-35.1 RDW-SD (test code = 71094-3) 44.1 fL 39.0-49.9 RDW-CV (test code = 788-0) 14.9 % 12.0-15.5 PLT (test code = 777-3) 358 166-358 MPV (test code = 12353-2) 9.4 fL 9.5-12.9 L NRBC/100 WBC (test code = 5193434711) 0.0 0.0-10.0 NRBC x10^3 (test code = 0988125738) See_Comment [Automated messa ge] The system which generated this result transmitted reference range: 10*3/?L. The reference range was not used to interpret this result as normal/abnormal. GRAN MAT (NEUT) % (test code = 770-8) 58.2 % IMM GRAN % (test code = 8687713241) 0.40 % LYMPH % (test code = 736-9) 34.1 % MONO % (test code = 5905-5) 4.7 % EOS % (test code = 713-8) 2.3 % BASO % (test code = 706-2) 0.3 % GRAN MAT x10^3(ANC) (test code = 7736501727) 5.33 10*3/uL 1.88-7.09 IMM GRAN x10^3 (test code = 7495633411) 0.04 10*3/uL 0.00-0.06 LYMPH x10^3 (test code = 731-0) 3.12 10*3/uL 1.32-3.29 MONO x10^3 (test code = 742-7) 0.43 10*3/uL 0.33-0.92 EOS x10^3 (test code = 711-2) 0.21 10*3/uL 0.03-0.39 BASO x10^3 (test code = 704-7) 0.03 10*3/uL 0.01-0.07 Lab Interpretation (test code = 25257-4) [facility]normal [facility] ZCWMJWWP9792-34-61 18:53:41EXAM: CT HEAD WO CONTRAST HISTORY: 44 [...] clear. Thecalvarium and central skull base are unremarkable.[facility] DallasXR FOREARM 2 VW YVCPJ2617-59-01 04:08:39EXAM: XR HAND 3+ VW RIGHT, XR [...] No radiopaqueforeign body. Mild diffuse soft tissue swelling.[facility] HAND 3+ VW LWRLT0378-10-89 04:08:39EXAM: XR HAND 3+ VW RIGHT, XR [...] No radiopaqueforeign body. Mild diffuse soft tissue swelling.[facility] DallasXR ELBOW <3 VW [id number] 04:08:39EXAM: XR HAND 3+ VW RIGHT, XR [...] radiopaqueforeign body. Mild diffuse soft tissue swelling. [facility] MAXILLOFACIAL/MANDIBLE WO CONTRAST 2024-05-18 03:36:27ORDERING PHYSICIAN:TAMMY ?ELMOERRENATA CLINICAL INFORMATION: ? Facial trauma, blunt COMPARISON: [...] no evidence of retrobulbar hematomas or retroconal fatstranding.[facility] CERVICAL SPINE WO CONTRAST 2024-05-18 [...] tissues arenormal. The visualized lung apices are clear.[facility] Upvm9925-58-15 02:00:00* Test Item Value Reference Range Interpretation Comme nts POCT PREG (test code = 1605) Negative On board controls acceptable with C Line (test code = 3574) Yes Lab Interpretation (test cod e = 88201-4) Normal [facility]. Metabolic Panel (71383)2024-05-08 01:19:56* Test Item Value Reference Range Interpretation Comme nts NA (test code = 3724391969) 139 mmol/L 135-145 K (test code = 1243818662) 3.3 mmol/L 3.5-5.0 L CL (test code = 8747463315) 107 mmol/L 98-108 CO2 TOTAL (test code = 5073349131) 22 mmol/L 23-31 L AGAP (test code = 0651640515) 10 2-16 BUN (test code = 1068517618) 5 mg/dL 7-23 L GLUCOSE (test code = 5497274578) 131 mg/dL 70-110 H CREATININE (test code = 2160-0) 0.72 mg/dL 0.50-1.04 TOTAL BILI (test code = 5039847027) 0.1-1.1 L CALCIUM (test code = 5464893749) 9.3 mg/dL 8.6-10.6 T PROTEIN (test code = 9139764129) 7.0 g/dL 6.3-8.2 ALBUMIN (test code = 7531944162) 4.1 g/dL 3.5-5.0 ALK PHOS (test code = 5541680408) 76 U/L 34-122 ALTv (test code = 1742-6) 27 U/L 5-35 AST(SGOT) (test code = 8426455084) 30 U/L 13-40 eGFR (test code = 07586-1) 105.2 mL/min/1.73m2 CKD-EPI eGFR (2020). Assuming creatinine has been stable day-to-day for at least three months, the eGFR indicates Category G1 (>= 90 mL/min/1.73 m2) Lab Interpretation (test code = 40420-3) [facility]normal [facility] DallasTroponin [id number] 01:18:54* Test Item Value Reference Range Interpretation Comme nts TROPONIN I (test code = 7163912097) 0.003 ng/mL <=0.034 DARWIN (test code = [...] of biotin. Lab Interpretation (test code = 03004-9) Normal [facility] DallasMagnesium2024-11-01 01:07:50* Test Item Value Reference Range Interpretation Comme nts MAGNESIUM (test code = 6223306380) 1.7 mg/dL 1.7-2.4 Lab Interpretation (test cod e = 78502-0) Normal [facility] DallasLipase2024-11-01 01:07:30* Test Item Value Reference Range Interpretation Comme nts LIPASE (test code = 9358462386) 97 U/L 0-220 Lab Interpretation (test cod e = 97157-1) Normal [facility] with Rxpu2612-00-03 00:51:30* Test Item Value Reference Range Interpretation [...] 33.2 g/dL 31.6-35.1 RDW-SD (test code = 22994-6) 43.6 fL 39.0-49.9 RDW-CV (test code = 788-0) 14.8 % 12.0-15.5 PLT (test code = 777-3) 382 166-358 H MPV (test code = 13114-1) 9.7 fL 9.5-12.9 NRBC/100 WBC (test code = 0885300240) 0.0 0.0-10.0 NRBC x10^3 (test code = 3520740663) See_Comment [Automated messa ge] The system which generated this result transmitted reference range: 10*3/?L. The reference range was not used to interpret this result as normal/abnormal. GRAN MAT (NEUT) % (test code = 770-8) 63.3 % IMM GRAN % (test code = 5062381249) 0.40 % LYMPH % (test code = 736-9) 27.5 % MONO % (test code = 5905-5) 5.4 % EOS % (test code = 713-8) 2.9 % BASO % (test code = 706-2) 0.5 % GRAN MAT x10^3(ANC) (test code = 5088033407) 7.25 10*3/uL 1.88-7.09 H IMM GRAN x10^3 (test code = 3243815049) 0.05 10*3/uL 0.00-0.06 LYMPH x10^3 (test code = 731-0) 3.15 10*3/uL 1.32-3.29 MONO x10^3 (test code = 742-7) 0.62 10*3/uL 0.33-0.92 EOS x10^3 (test code = 711-2) 0.33 10*3/uL 0.03-0.39 BASO x10^3 (test code = 704-7) 0.06 10*3/uL 0.01-0.07 Lab Interpretation (test code = 12729-9) [facility] cardiac troponin I panel by high sensitivity ojwotb4564-47-10 17:16:00* Test Item Value Reference Range Interpretation Comme nts Troponin T High Sensitivity (test code = 38057-5) < 6.0 [facility] CtrSerum or plasma glucose measurement (mass/volume) 2024-04-10 17:14:00* Test Item Value Reference Range Interpretation Comme nts Random Glucose (test code = 2345-7) 109 [facility] CtrSerum or plasma urea nitrogen measurement (mass/volume)2024-04-10 17:14:00* Test Item Value Reference Range Interpretation Comme nts Blood Urea Nitrogen (test co de = 3094-0) 4 [facility] JyxMKL3242-62-28 17:14:00* Test Item Value Reference Range Interpretation Comme nts Aspartate Amino Transf (AST/ SGOT) (test code = YQG3657) 14 [facility] CtrBilirubin nbrca1254-76-49 17:14:00* Test Item Value Reference Range Interpretation Comme nts Total Bilirubin (test code = HDX4952) < 0.2 [facility] CtrEstimated glomerular filtration rate (GFR) znydpoqnthelo3007-29-67 17:14:00* Test Item Value Reference Range Interpretation Comme nts Glomerular Filtration Rate C alc (test code = 536548522) > 60.00 [facility] CtrBUN/creatinine kfirb6040-61-09 17:14:00* Test Item Value Reference Range Interpretation Comme nts BUN/Creatinine Ratio (test c ode = 45793825) 7.3 [facility] HtzPA20277-77-89 17:14:00* Test Item Value Reference Range Interpretation Comme nts Carbon Dioxide Level (test c ode = 04570865) 22 [facility] CtrAnion gap mizuxafnnei4876-12-07 17:14:00* Test Item Value Reference Range Interpretation Comme nts Anion Gap (test code = 11189736) 16.6 [facility] CtrCalcium eivri2442-13-79 17:14:00* Test Item Value Reference Range Interpretation Comme nts Calcium Level (test code = 64114001) 9.9 [facility] CtrGlobulin epi0849-29-63 17:14:00* Test Item Value Reference Range Interpretation Comme nts Globulin (test code = 433880030) 3.1 [facility] CtrALT (SGPT) ser/nxib5742-34-76 17:14:00* Test Item Value Reference Range Interpretation Comme nts Alanine Aminotransferase (AL T/SGPT) (test code = 1742-6) 10 [facility] CtrAmylase argaz5227-94-01 17:14:00* Test Item Value Reference Range Interpretation Comme nts Amylase Level (test code = 1798-8) 48 [facility] RlnTjaiip6266-03-11 17:14:00* Test Item Value Reference Range Interpretation Comme nts Lipase (test code = 57773155) 24 [facility] CtrALP ser/hmzz2564-78-56 17:14:00* Test Item Value Reference Range Interpretation Comme nts Total Alkaline Phosphatase ( test code = 6768-6) 92 [facility] CtrUrine hydrocodone measurement (mass/volume) 2024-04-10 17:13:00* Test Item Value Reference Range Interpretation Comme nts Hydrocodone Level (test code = 3681-4) NEGATIVE [facility] CtrUrine fentanyl measurement by confirmatory method (mass/volume)2024-04-10 17:13:00* Test Item Value Reference Range Interpretation Comme nts Urine Fentanyl Screen (test code = 14954-1) NEGATIVE [facility] CtrPhencyclidine (PCP) vy5458-22-70 17:13:00* Test Item Value Reference Range Interpretation Comme nts Urine Phencyclidine (PCP) Le edilson (test code = 157559967) NEGATIVE [facility] CtrPropoxyphene [Mass/volume] in Ugabm7159-86-19 17:13:00* Test Item Value Reference Range Interpretation Comme nts Propoxyphene Level (test cod e = 3545-1) NEGATIVE [facility] CtroxyCODONE [Mass/volume] in Ellux5398-10-51 17:13:00* Test Item Value Reference Range Interpretation Comme nts Oxycodone Level (test code = 56873-6) NEGATIVE [facility] CtrAmphetamine ur tqonbj2694-64-66 17:13:00* Test Item Value Reference Range Interpretation Comme nts Urine Amphetamines Screen (t est code = 60601-9) NEGATIVE [facility] TeeUbctjhvot0058-75-73 17:13:00* Test Item Value Reference Range Interpretation Comme nts Methadone Level (test code = FDI7264) NEGATIVE [facility] CtrBenzodiazepines screen iv5739-68-23 17:13:00* Test Item Value Reference Range Interpretation Comme nts Urine Benzodiazepines Screen (test code = 697814551) POSITIVE [facility] CtrCannabinoids (8-jcvmnwk-INV) gwpzbgvrjeq7362-98-54 17:13:00* Test Item Value Reference Range Interpretation Comme nts Urine Cannabinoids (test cod e = 474025961) NEGATIVE [facility] CtrCocaine metabolite rmvkgf4719-28-71 17:13:00* Test Item Value Reference Range Interpretation Comme nts Urine Cocaine Metabolite (te st code = 638900465) NEGATIVE [facility] CtrOpiates lugcz2751-36-95 17:13:00* Test Item Value Reference Range Interpretation Comme nts Urine Opiates Screen (test c ode = 642084924) NEGATIVE [facility] CtrUrine leukocyte esterase sjxutqctp1765-08-08 17:10:00* Test Item Value Reference Range Interpretation Comme nts Urine Leukocyte Esterase (te st code = 324798995) 3+ [facility] CtrRBC count ur smia5314-50-45 17:08:00* Test Item Value Reference Range Interpretation Comme nts Urine RBC (test code = 798-9) 0-2 [facility] CtrUrine examination for white blood cells (WBC) 2024-04-10 17:08:00* Test Item Value Reference Range Interpretation Comme nts Urine WBC (test code = 857017286) >100 [facility] CtrAutomated epithelial cells count in urine sediment (number/area)2024-04-10 17:08:00* Test Item Value Reference Range Interpretation Comme nts Urine Epithelial Cells (test code = 79552-6) 6-10 [facility] CtrBacteria detection in urine sediment by light fihqdmzikh8724-28-58 17:08:00* Test Item Value Reference Range Interpretation Comme [facility] Urine Bacteria (test code = 65677-9) Few [facility] CtrUrine casts detection by automated method 2024-04-10 17:08:00* Test Item Value Reference Range Interpretation Comme nts Urine Casts (test code = 98403-3) 0-2 [facility] CtrHCG ur DS4824-42-02 17:03:00* Test Item Value Reference Range Interpretation Comme nts Urine HCG, Qualitative (test code = 2106-3) NEGATIVE [facility] CtrColor of Urine by Wfkr8602-89-25 17:03:00* Test Item Value Reference Range Interpretation Comme nts Urine Color (test code = 61597-6) Yellow [facility] CtrAppearance of Leglm1523-49-20 17:03:00* Test Item Value Reference Range Interpretation Comme nts Urine Appearance (test code = 5767-9) Cloudy [facility] CtrUrine glucose zgcuidbbf1807-96-14 17:03:00* Test Item Value Reference Range Interpretation Comme nts Urine Glucose (UA) (test cod e = 2349-9) Negative [facility] CtrBilirubin na1655-39-97 17:03:00* Test Item Value Reference Range Interpretation Comme nts Urine Bilirubin (test code = 599511818) Negative [facility] CtrKetones ai3537-43-17 17:03:00* Test Item Value Reference Range Interpretation Comme nts Urine Ketones (test code = 79173883) Negative [facility] gravity of Urine by Automated test strip 2024-04-10 17:03:00* Test Item Value Reference Range Interpretation Comme nts Urine Specific [place] (test code = 81440-2) 1.006 [facility]burg[facility]rine blood fcxxvhkzg1977-49-39 17:03:00* Test Item Value Reference Range Interpretation Comme nts Urine Blood (test code = 26030-1) Nonhemolyzed Trace [facility] CtrpH uh9511-04-49 17:03:00* Test Item Value Reference Range Interpretation Comme nts Urine pH (test code = 2756-5) 6.000 [facility] CtrProtein gq6554-84-81 17:03:00* Test Item Value Reference Range Interpretation Comme nts Urine Protein (test code = 20968621) Negative [facility] CtrUrobilinogen, urine, ii4753-80-22 17:03:00* Test Item Value Reference Range Interpretation Comme nts Urine Urobilinogen (test cod e = 592058528) 0.2 [facility] nitrate pumukikwn0479-96-01 17:03:00* Test Item Value Reference Range Interpretation Comme nts Urine Nitrate (test code = 43245-7) Negative [facility] CtrAbsolute eosinophil qrcua8165-49-96 17:00:00* Test Item Value Reference Range Interpretation Comme nts Eosinophils # (Auto) (test c ode = IUS1754) 0.25 [facility] CtrRBC zmyne8849-91-38 17:00:00* Test Item Value Reference Range Interpretation Comme [facility] Red Blood Count (test code = 54710384) 5.17 [facility] VddFwcwrbwbal1390-12-15 17:00:00* Test Item Value Reference Range Interpretation Comme nts Hematocrit (test code = 84504184) 41.9 [facility] CtrMCV (mean corpuscular volume) determination 2024-04-10 17:00:00* Test Item Value Reference Range Interpretation Comme [facility] Mean Corpuscular Volume (shailesh t code = 29615-7) 81.0 [facility] CtrMean corpuscular hemoglobin (MCH) determination 2024-04-10 17:00:00* Test Item Value Reference Range Interpretation Comme [facility] Mean Corpuscular Hemoglobin (test code = 11904840) 26.1 [facility] CtrMean corpuscular hemoglobin concentration (MCHC) akiqxfufngelx9921-51-53 17:00:00* Test Item Value Reference Range Interpretation Comme [facility] Mean Corpuscular Hemoglobin Concent (test code = 16073960) 32.2 [facility] CtrRBC distribution width coefficient of variation 2024-04-10 17:00:00* Test Item Value Reference Range Interpretation Comme [facility] Red Cell Distribution Width (test code = 97162224) 15.2 [facility] CtrPlatelet tpmgz3295-81-13 17:00:00* Test Item Value Reference Range Interpretation Comme [facility] Platelet Count (test code = 51643895) 343 [facility] CtrMean platelet yugxiy3007-05-39 17:00:00* Test Item Value Reference Range Interpretation Comme [facility] Mean Platelet Volume (test c ode = 09893442) 9.3 [facility] CtrNeutrophils seg % gtt5102-34-98 17:00:00* Test Item Value Reference Range Interpretation Comme nts Neutrophils (%) (Auto) (test code = 95750-2) 71.4 [facility] CtrAbsolute immature granulocyte ygfwi4693-36-07 17:00:00* Test Item Value Reference Range Interpretation Comme nts Absolute Immature Granulocyt e (auto (test code = 89650-8) 0.05 [facility] CtrBlood band neutrophils count (number/volume) 2024-04-10 17:00:00* Test Item Value Reference Range Interpretation Comme nts Neutrophils # (Auto) (test c ode = 62479-9) 8.20 [facility] CtrAbsolute lymphocyte xujhs7969-70-42 17:00:00* Test Item Value Reference Range Interpretation Comme nts Lymphocytes # (Auto) (test c ode = 14865-2) 2.42 [facility] CtrAbsolute basophil gbpta1651-05-92 17:00:00* Test Item Value Reference Range Interpretation Comme nts Basophils # (Auto) (test cod e = 16153725) 0.03 [facility] CtrAbsolute NRBC ssnuc7900-01-81 17:00:00* Test Item Value Reference Range Interpretation Comme nts Nucleated Red Blood Cells # (test code = 761316954) 0 [facility] CtrCT ABDOMEN PELVIS WO TNSFFOKJ7434-42-82 00:27:38 Ordering Physician: JACQUE ROJO Clinical indication: [...] the spine.Multilevel lumbar central canal stenosis is present.[facility] Dallas[facility] Metabolic Jxjmb4764-74-04 23:13:34* Test Item Value Reference Range Interpretation Comme nts NA (test code = 8564894657) 136 mmol/L 135-145 K (test code = 3651113983) 3.7 mmol/L 3.5-5.0 CL (test code = 8199994848) 106 mmol/L 98-108 CO2 TOTAL (test code = 0094076944) 20 mmol/L 23-31 L AGAP (test code = 3784465108) 10 2-16 BUN (test code = 4096158999) 6 mg/dL 7-23 L GLUCOSE (test code = 0903286341) 149 mg/dL 70-110 H CREATININE (test code = 2160-0) 0.63 mg/dL 0.50-1.04 TOTAL BILI (test code = 8320753604) 0.3 mg/dL 0.1-1.1 CALCIUM (test code = 4226938042) 9.2 mg/dL 8.6-10.6 T PROTEIN (test code = 4085416037) 7.4 g/dL 6.3-8.2 ALBUMIN (test code = 6504052149) 4.3 g/dL 3.5-5.0 ALK PHOS (test code = 8699166483) 74 U/L 34-122 ALTv (test code = 1742-6) 20 U/L 5-35 AST(SGOT) (test code = 8829564394) 22 U/L 13-40 eGFR (test code = 30856-3) 111.6 mL/min/1.73m2 CKD-EPI eGFR (2020). Assuming creatinine has been stable day-to-day for at least three months, the eGFR indicates Category G1 (>= 90 mL/min/1.73 m2) Lab Interpretation (test code = 67457-7) Abnormal [facility] DallasLipase, Lmrzl4531-08-45 23:12:53* Test Item Value Reference Range Interpretation Comme nts LIPASE (test code = 5280002728) 104 U/L 0-220 Lab Interpretation (test cod e = 68007-7) Normal [facility] DallasPOCT Wlen6123-78-33 23:01:00* Test Item Value Reference Range Interpretation Comme nts POCT PREG (test code = 1605) Negative On board controls acceptable with C Line (test code = 3574) Yes POCT PREG LOT # (test code = 3575) [id number] POCT PREG TEST DATE ( test code = 3576) Lab Interpretation (test cod e = 54101-7) Normal [facility] with Kdzhftwrgjkx9361-51-59 23:00:31* Test Item Value Reference Range Interpretation [...] 33.0 g/dL 31.6-35.1 RDW-SD (test code = 57576-0) 45.5 fL 39.0-49.9 RDW-CV (test code = 788-0) 15.3 % 12.0-15.5 PLT (test code = 777-3) 370 166-358 H MPV (test code = 58536-5) 9.3 fL 9.5-12.9 L NRBC/100 WBC (test code = 7912733291) 0.0 0.0-10.0 NRBC x10^3 (test code = 3162338279) See_Comment [Automated messa ge] The system which generated this result transmitted reference range: 10*3/?L. The reference range was not used to interpret this result as normal/abnormal. GRAN MAT (NEUT) % (test code = 770-8) 71.8 % IMM GRAN % (test code = 1113542713) 0.60 % LYMPH % (test code = 736-9) 20.9 % MONO % (test code = 5905-5) 4.9 % EOS % (test code = 713-8) 1.4 % BASO % (test code = 706-2) 0.4 % GRAN MAT x10^3(ANC) (test code = 6950460552) 9.75 10*3/uL 1.88-7.09 H IMM GRAN x10^3 (test code = 3487764884) 0.08 10*3/uL 0.00-0.06 H LYMPH x10^3 (test code = 731-0) 2.83 10*3/uL 1.32-3.29 MONO x10^3 (test code = 742-7) 0.66 10*3/uL 0.33-0.92 EOS x10^3 (test code = 711-2) 0.19 10*3/uL 0.03-0.39 BASO x10^3 (test code = 704-7) 0.05 10*3/uL 0.01-0.07 Lab Interpretation (test code = 74443-1) Abnormal [facility] ABDOMEN PELVIS W DQPUFVRL2606-84-56 05:07:16ORDERING PHYSICIAN:BOB MUSA CLINICAL INFORMATION: ? Abdominal [...] are clear. There are nosuspicious focal osseous lesions.[facility] Complete Metabolic Vsnnc8391-97-26 04:38:59* Test Item Value Reference Range Interpretation Comme nts NA (test code = 6121270822) 138 mmol/L 135-145 K (test code = 5933593883) 3.7 mmol/L 3.5-5.0 CL (test code = 7251296430) 108 mmol/L 98-108 CO2 TOTAL (test code = 7258984145) 22 mmol/L 23-31 L AGAP (test code = 6054234474) 8 2-16 BUN (test code = 8663823076) 12 mg/dL 7-23 GLUCOSE (test code = 6750818026) 98 mg/dL 70-110 CREATININE (test code = 2160-0) 0.62 mg/dL 0.50-1.04 TOTAL BILI (test code = 2348300266) 0.4 mg/dL 0.1-1.1 CALCIUM (test code = 5794174383) 8.9 mg/dL 8.6-10.6 T PROTEIN (test code = 3092448127) 7.1 g/dL 6.3-8.2 ALBUMIN (test code = 2480262317) 3.8 g/dL 3.5-5.0 ALK PHOS (test code = 4778391111) 89 U/L 34-122 ALTv (test code = 1742-6) 17 U/L 5-35 AST(SGOT) (test code = 3027244930) 22 U/L 13-40 eGFR (test code = 03663-1) 112.8 mL/min/1.73m2 CKD-EPI eGFR (2020). Assuming creatinine has been stable day-to-day for at least three months, the eGFR indicates Category G1 (>= 90 mL/min/1.73 m2) Lab Interpretation (test code = 41402-9) Abnormal [facility] DallasLipase, Qupkz7710-76-90 04:38:58* Test Item Value Reference Range Interpretation Comme nts LIPASE (test code = 8006450646) 136 U/L 0-220 Lab Interpretation (test cod e = 79712-2) Normal [facility] DallasCBC with Gadnecuyjivk2009-89-32 04:19:14* Test Item Value Reference Range Interpretation [...] 32.2 g/dL 31.6-35.1 RDW-SD (test code = 82140-8) 50.2 fL 39.0-49.9 H RDW-CV (test code = 788-0) 17.3 % 12.0-15.5 H PLT (test code = 777-3) 377 166-358 H MPV (test code = 82817-2) 9.4 fL 9.5-12.9 L NRBC/100 WBC (test code = 0870306930) 0.0 0.0-10.0 NRBC x10^3 (test code = 1975749663) See_Comment [Automated messa ge] The system which generated this result transmitted reference range: 10*3/?L. The reference range was not used to interpret this result as normal/abnormal. GRAN MAT (NEUT) % (test code = 770-8) 65.3 % IMM GRAN % (test code = 5672212534) 0.40 % LYMPH % (test code = 736-9) 26.1 % MONO % (test code = 5905-5) 6.2 % EOS % (test code = 713-8) 1.6 % BASO % (test code = 706-2) 0.4 % GRAN MAT x10^3(ANC) (test code = 5838567396) 7.33 10*3/uL 1.88-7.09 H IMM GRAN x10^3 (test code = 2745288444) 0.04 10*3/uL 0.00-0.06 LYMPH x10^3 (test code = 731-0) 2.93 10*3/uL 1.32-3.29 MONO x10^3 (test code = 742-7) 0.70 10*3/uL 0.33-0.92 EOS x10^3 (test code = 711-2) 0.18 10*3/uL 0.03-0.39 BASO x10^3 (test code = 704-7) 0.05 10*3/uL 0.01-0.07 Lab Interpretation (test code = 37073-0) Abnormal [facility] DallasPONH FIOO3552-74-28 03:40:00* Test Item Value Reference Range Interpretation Comme nts POCT PREG (test code = 1605) Negative On board controls acceptable with C Line (test code = 3574) Yes POCT PREG LOT # (test code = 3575) [id number] POCT PREG TEST DATE ( test code = 3576) 2024-10-13 Lab Interpretation (test cod e = 97766-7) Normal [facility] DallasXR WCG0187-64-72 04:35:04Ordering physician: ROBERTO RICHARDS INDICATION: Abdominal pain COMPARISON: CT of the abdomen and pelv is dated 03/09/2023 FINDINGS: Supine AP view of the abdomen and pelvis. There is no bowelobstruction or generalized constipation.[facility] Anbc1829-04-23 02:30:00* Test Item Value Reference Range Interpretation Comme nts POCT PREG (test code = 1605) Negative On board controls acceptable with C Line (test code = 3574) Yes POCT PREG LOT # (test code = 3575) [id number] POCT PREG TEST DATE ( test code = 3576) 2024-09-15 Lab Interpretation (test cod e = 50183-9) Normal [facility] DallasCBC WITH STNN5371-65-25 00:05:06* Test Item Value Reference Range Interpretation [...] 34.2 g/dL 31.6-35.1 RDW-SD (test code = 61022-6) 41.5 fL 39.0-49.9 RDW-CV (test code = 788-0) 14.5 % 12.0-15.5 PLT (test code = 777-3) 384 See_Comment H [Automated messa ge] The system which generated this result transmitted reference range: 166 - 358 10*3/?L. The reference range was not used to interpret this result as normal/abnormal. MPV (test code = 49183-5) 9.6 fL 9.5-12.9 GRAN MAT (NEUT) % (test code = 770-8) 66.0 % IMM GRAN % (test code = 3018074152) 0.50 % LYMPH % (test code = 736-9) 27.4 % MONO % (test code = 5905-5) 4.6 % EOS % (test code = 713-8) 1.1 % BASO % (test code = 706-2) 0.4 % GRAN MAT x10^3(ANC) (test code = 6271845519) 7.96 10*3/uL 1.88-7.09 H IMM GRAN x10^3 (test code = 6728115575) 0.06 10*3/uL 0.00-0.06 LYMPH x10^3 (test code = 731-0) 3.30 10*3/uL 1.32-3.29 H MONO x10^3 (test code = 742-7) 0.56 10*3/uL 0.33-0.92 EOS x10^3 (test code = 711-2) 0.13 10*3/uL 0.03-0.39 BASO x10^3 (test code = 704-7) 0.05 10*3/uL 0.01-0.07 Lab Interpretation (test code = 93636-2) Abnormal [facility]. METABOLIC PANEL (08283)2023-05-09 23:27:13* Test Item Value Reference Range Interpretation Comme nts NA (test code = 7364472497) 137 mmol/L 135-145 K (test code = 0208143067) 3.3 mmol/L 3.5-5.0 L CL (test code = 5091229560) 103 mmol/L 98-108 CO2 TOTAL (test code = 1700809092) 20 mmol/L 23-31 L AGAP (test code = 6580265154) 14 2-16 BUN (test code = 1527023028) 5 mg/dL 7-23 L GLUCOSE (test code = 7578428621) 146 mg/dL 70-110 H CREATININE (test code = 9259510106) 0.60 mg/dL 0.50-1.04 TOTAL BILI (test code = 0820927832) 0.3 mg/dL 0.1-1.1 CALCIUM (test code = 4643887598) 9.3 mg/dL 8.6-10.6 T PROTEIN (test code = 9744451655) 7.9 g/dL 6.3-8.2 ALBUMIN (test code = 9517380064) 4.4 g/dL 3.5-5.0 ALK PHOS (test code = 2908607370) 105 U/L 34-122 ALTv (test code = 1742-6) 38 U/L 5-35 H AST(SGOT) (test code = 6809415146) 21 U/L 13-40 eGFR (test code = 26807-6) 113.7 mL/min/1.73m2 CKD-EPI eGFR (2020). Assuming creatinine has been stable day-to-day for at least three months, the eGFR indicates Category G1 (>= 90 mL/min/1.73 m2) Lab Interpretation (test code = 13489-0) [facility]* Test Item Value Reference Range Interpretation Comme nts LIPASE (test code = 1043312376) 142 U/L 0-220 Lab Interpretation (test cod e = 97342-0) Normal [facility] METABOLIC PANEL (47036)2023-04-30 23:41:47* Test Item Value Reference Range Interpretation Comme nts NA (test code = 2875765460) 139 mmol/L 135-145 K (test code = 3641412151) 3.3 mmol/L 3.5-5.0 L CL (test code = 4027461797) 105 mmol/L 98-108 CO2 TOTAL (test code = 2819673026) 20 mmol/L 23-31 L AGAP (test code = 9317563598) 14 2-16 BUN (test code = 8885098159) 6 mg/dL 7-23 L GLUCOSE (test code = 1810305603) 119 mg/dL 70-110 H CREATININE (test code = 2309416784) 0.59 mg/dL 0.50-1.04 TOTAL BILI (test code = 9650121038) 0.3 mg/dL 0.1-1.1 CALCIUM (test code = 0617333117) 9.7 mg/dL 8.6-10.6 T PROTEIN (test code = 8942331574) 7.6 g/dL 6.3-8.2 ALBUMIN (test code = 0799194617) 4.2 g/dL 3.5-5.0 ALK PHOS (test code = 2496896099) 78 U/L 34-122 ALTv (test code = 1742-6) 24 U/L 5-35 AST(SGOT) (test code = 9679828038) 24 U/L 13-40 eGFR (test code = 7343280065) 110.7 mL/min/1.73m2 DARWIN (test code = DARWIN) [...] imaging tests). Lab Interpretation (test code = 08643-1) Abnormal [facility] WITH [id number] 23:29:07* Test Item Value Reference Range Interpretation Comme nts WBC (test code = 6690-2) 11.56 See_Comment H [Automated [employer]] The system which generated this result transmitted reference range: 4.30 - 11.10 10*3/?L. The reference range was not used to interpret this result as normal/abnormal. RBC (test code = 789-8) 5.02 See_Comment [Automated [employer]] The system which generated this result transmitted [...] 33.7 g/dL 31.6-35.1 RDW-SD (test code = 99613-4) 41.5 fL 39.0-49.9 RDW-CV (test code = 788-0) 14.3 % 12.0-15.5 PLT (test code = 777-3) 335 See_Comment [Automated [employer]] The system which generated this result transmitted reference range: 166 - 358 10*3/?L. The reference range was not used to interpret this result as normal/abnormal. MPV (test code = 35327-0) 9.7 fL 9.5-12.9 NRBC/100 WBC (test code = 0859705450) 0.0 See_Comment [Automated me ssage] The system which generated this result transmitted reference range: 0.0 - 10.0 /100 WBCs. The reference range was not used to interpret this result as normal/abnormal. NRBC x10^3 (test code = 9629411706) See_Comment [Automated messa ge] The system which generated this result transmitted reference range: 10*3/?L. The reference range was not used to interpret this result as normal/abnormal. GRAN MAT (NEUT) % (test code = 770-8) 65.7 % IMM GRAN % (test code = 1330580734) 0.50 % LYMPH % (test code = 736-9) 25.4 % MONO % (test code = 5905-5) 6.7 % EOS % (test code = 713-8) 1.2 % BASO % (test code = 706-2) 0.5 % GRAN MAT x10^3(ANC) (test code = 4111996941) 7.59 10*3/uL 1.88-7.09 H IMM GRAN x10^3 (test code = 4880396981) 0.06 10*3/uL 0.00-0.06 LYMPH x10^3 (test code = 731-0) 2.94 10*3/uL 1.32-3.29 MONO x10^3 (test code = 742-7) 0.77 10*3/uL 0.33-0.92 EOS x10^3 (test code = 711-2) 0.14 10*3/uL 0.03-0.39 BASO x10^3 (test code = 704-7) 0.06 10*3/uL 0.01-0.07 Lab Interpretation (test code = 58364-3) Abnormal [facility] [id number] 22:59:00* Test Item Value Reference Range Interpretation Comme nts POCT PREG (test code = 1605) Negative On board controls acceptable with C Line (test code = 3574) Yes POCT PREG LOT # (test code = 3575) [id number] POCT PREG TEST DATE ( test code = 3576) 07/10/2024 Lab Interpretation (test cod e = 93023-0) [facility] [id number] 02:36:34* Test Item Value Reference Range Interpretation Comme nts TROPONIN I (test code = 5807081417) 0.000 ng/mL <=0.034 DARWIN (test code = [...] of biotin. Lab Interpretation (test code = 03197-9) Normal [facility] [id number] 02:34:17* Test Item Value Reference Range Interpretation Comme [facility] NT-proBNP (test code = 73201-2) 40 pg/mL <=125 Lab Interpretation (test cod e = 20440-1) Normal [facility] THRM[facility] [id number] 02:33:37* Test Item Value Reference Range Interpretation Comme nts APTT Patient (test code = 3173-2) 25 See_Comment [Automated message] The system which generated this result transmitted reference range: 23 - 38 Seconds. The reference range was not used to interpret this result as normal/abnormal. DARWIN (test code = DARWIN) The [facility] patient population mean normal value for aPTT is 30 seconds. Lab Interpretation (test code = 09005-0) Normal [facility] / [id number] 02:31:36* Test Item Value Reference Range Interpretation Comme [facility] PROTIME PATIENT (test code = 5964-2) [...] the indications. Lab Interpretation (test code = 33902-3) Normal [facility]. METABOLIC PANEL (51365)2023-04-17 02:24:56* Test Item Value Reference Range Interpretation Comme nts NA (test code = 5544734442) 142 mmol/L 135-145 K (test code = 7800043117) 3.1 mmol/L 3.5-5.0 L CL (test code = 3787282583) 108 mmol/L 98-108 CO2 TOTAL (test code = 8661232634) 20 mmol/L 23-31 L AGAP (test code = 1291094331) 14 2-16 BUN (test code = 4549882713) 4 mg/dL 7-23 L GLUCOSE (test code = 5448137658) 107 mg/dL 70-110 CREATININE (test code = 5642699215) 0.61 mg/dL 0.50-1.04 TOTAL BILI (test code = 3586499800) 0.2 mg/dL 0.1-1.1 CALCIUM (test code = 4631809614) 9.1 mg/dL 8.6-10.6 T PROTEIN (test code = 9440084564) 7.0 g/dL 6.3-8.2 ALBUMIN (test code = 2581073910) 3.9 g/dL 3.5-5.0 ALK PHOS (test code = 1949458024) 69 U/L 34-122 ALTv (test code = 1742-6) 21 U/L 5-35 AST(SGOT) (test code = 0117192883) 21 U/L 13-40 eGFR (test code = 6931856781) 106.5 mL/min/1.73m2 DARWIN (test code = DARWIN) [...] imaging tests). Lab Interpretation (test code = 04785-1) [facility] 02:24:56* Test Item Value Reference Range Interpretation Comme nts LIPASE (test code = 6731123666) 104 U/L 0-220 Lab Interpretation (test cod e = 28253-0) Normal [facility] WITH [id number] 02:13:31* Test Item Value Reference Range Interpretation Comme nts WBC (test code = 6690-2) 10.74 See_Comment [Automated [employer]] The system which generated this result transmitted reference range: 4.30 - 11.10 10*3/?L. The reference range was not used to interpret this result as normal/abnormal. RBC (test code = 789-8) 4.75 See_Comment [Autom[employer]] The system which generated this result transmitted [...] 34.5 g/dL 31.6-35.1 RDW-SD (test code = 51340-5) 39.1 fL 39.0-49.9 RDW-CV (test code = 788-0) 13.5 % 12.0-15.5 PLT (test code = 777-3) 324 See_Comment [Automated [employer]] The system which generated this result transmitted reference range: 166 - 358 10*3/?L. The reference range was not used to interpret this result as normal/abnormal. MPV (test code = 92337-1) 9.3 fL 9.5-12.9 L NRBC/100 WBC (test code = 6278455017) 0.0 See_Comment [Automated [employer] ssage] The system which generated this result transmitted reference range: 0.0 - 10.0 /100 WBCs. The reference range was not used to interpret this result as normal/abnormal. NRBC x10^3 (test code = 1412483359) See_Comment [Automated [employer]] The system which generated this result transmitted reference range: 10*3/?L. The reference range was not used to interpret this result as normal/abnormal. GRAN MAT (NEUT) % (test code = 770-8) 65.2 % IMM GRAN % (test code = 6061519530) 0.40 % LYMPH % (test code = 736-9) 26.5 % MONO % (test code = 5905-5) 5.8 % EOS % (test code = 713-8) 1.7 % BASO % (test code = 706-2) 0.4 % GRAN MAT x10^3(ANC) (test code = 8857661854) 7.01 10*3/uL 1.88-7.09 IMM GRAN x10^3 (test code = 0634594086) 0.04 10*3/uL 0.00-0.06 LYMPH x10^3 (test code = 731-0) 2.85 10*3/uL 1.32-3.29 MONO x10^3 (test code = 742-7) 0.62 10*3/uL 0.33-0.92 EOS x10^3 (test code = 711-2) 0.18 10*3/uL 0.03-0.39 BASO x10^3 (test code = 704-7) 0.04 10*3/uL 0.01-0.07 Lab Interpretation (test code = 68270-6) [facility] [id number] 02:11:00* Test Item Value Reference Range Interpretation Comme nts POCT PREG (test code = 1605) Negative On board controls acceptable with C Line (test code = 3574) Yes POCT PREG LOT # (test code = 3575) [id number] POCT PREG TEST DATE ( test code = 3576) 2024-09-04 Lab Interpretation (test cod e = 30017-5) Normal [facility] [id number] 23:59:14* Test Item Value Reference Range Interpretation Comme nts TROPONIN I (test code = 6153094527) 0.000 ng/mL <=0.034 DARWIN (test code = [...] of biotin. Lab Interpretation (test code = 01180-8) Normal [facility]. METABOLIC PANEL (17126)2023-04-08 23:47:52* Test Item Value Reference Range Interpretation Comme nts NA (test code = 2794540467) 138 mmol/L 135-145 K (test code = 0719422477) 3.4 mmol/L 3.5-5.0 L CL (test code = 2433809593) 103 mmol/L 98-108 CO2 TOTAL (test code = 3175085288) 22 mmol/L 23-31 L AGAP (test code = 1946977948) 13 2-16 BUN (test code = 7357358383) 6 mg/dL 7-23 L GLUCOSE (test code = 3043264482) 106 mg/dL 70-110 CREATININE (test code = 7645869904) 0.91 mg/dL 0.50-1.04 TOTAL BILI (test code = 0001509061) 0.2 mg/dL 0.1-1.1 CALCIUM (test code = 8099303782) 8.7 mg/dL 8.6-10.6 T PROTEIN (test code = 2833128206) 7.4 g/dL 6.3-8.2 ALBUMIN (test code = 6347074458) 4.1 g/dL 3.5-5.0 ALK PHOS (test code = 1640529394) 71 U/L 34-122 ALTv (test code = 1742-6) 28 U/L 5-35 AST(SGOT) (test code = 2250900747) 28 U/L 13-40 eGFR (test code = 9355695939) 67.2 mL/min/1.73m2 DARWIN (test code = DARWIN) [...] imaging tests). Lab Interpretation (test code = 62423-2) [facility] 23:47:52* Test Item Value Reference Range Interpretation Comme nts MAGNESIUM (test code = 2290581135) 2.0 mg/dL 1.7-2.4 Lab Interpretation (test cod e = 94409-0) Normal [facility] 23:47:52* Test Item Value Reference Range Interpretation Comme nts LIPASE (test code = 0818128049) 74 U/L 0-220 Lab Interpretation (test cod e = 62116-6) Normal [facility] DallasCB WITH [id number] 23:36:30* Test Item Value Reference Range Interpretation Comme nts WBC (test code = 6690-2) 9.95 See_Comment [Automated [employer]] The system which generated this result transmitted reference range: 4.30 - 11.10 10*3/?L. The reference range was not used to interpret this result as normal/abnormal. RBC (test code = 789-8) 5.29 See_Comment H [Automated [employer]] The system which generated this result transmitted [...] 34.5 g/dL 31.6-35.1 RDW-SD (test code = 72731-5) 39.3 fL 39.0-49.9 RDW-CV (test code = 788-0) 13.6 % 12.0-15.5 PLT (test code = 777-3) 305 See_Comment [Automated messa ge] The system which generated this result transmitted reference range: 166 - 358 10*3/?L. The reference range was not used to interpret this result as normal/abnormal. MPV (test code = 21685-5) 9.6 fL 9.5-12.9 NRBC/100 WBC (test code = 7110619060) 0.0 See_Comment [Automated me ssage] The system which generated this result transmitted reference range: 0.0 - 10.0 /100 WBCs. The reference range was not used to interpret this result as normal/abnormal. NRBC x10^3 (test code = 0742126157) See_Comment [Automated messa ge] The system which generated this result transmitted reference range: 10*3/?L. The reference range was not used to interpret this result as normal/abnormal. GRAN MAT (NEUT) % (test code = 770-8) 66.5 % IMM GRAN % (test code = 8278509244) 0.30 % LYMPH % (test code = 736-9) 25.3 % MONO % (test code = 5905-5) 5.2 % EOS % (test code = 713-8) 2.3 % BASO % (test code = 706-2) 0.4 % GRAN MAT x10^3(ANC) (test code = 0199270067) 6.61 10*3/uL 1.88-7.09 IMM GRAN x10^3 (test code = 7793021415) 0.03 10*3/uL 0.00-0.06 LYMPH x10^3 (test code = 731-0) 2.52 10*3/uL 1.32-3.29 MONO x10^3 (test code = 742-7) 0.52 10*3/uL 0.33-0.92 EOS x10^3 (test code = 711-2) 0.23 10*3/uL 0.03-0.39 BASO x10^3 (test code = 704-7) 0.04 10*3/uL 0.01-0.07 Lab Interpretation (test code = 36340-8) Abnormal [facility] [id number] 02:51:00* Test Item Value Reference Range Interpretation Comme nts POCT PREG (test code = 1605) Negative On board controls acceptable with C Line (test code = 3574) Yes POCT PREG LOT # (test code = 3575) [id number] POCT PREG TEST DATE ( test code = 3576) 07/10/2024 Lab Interpretation (test cod e = 00402-3) Normal [facility] [id number] 03:26:00* Test Item Value Reference Range Interpretation Comme nts POCT PREG (test code = 1605) Negative On board controls acceptable with C Line (test code = 3574) Yes POCT PREG LOT # (test code = 3575) [id number] POCT PREG TEST DATE ( test code = 3576) Lab Interpretation (test cod e = 50713-5) [facility] 22:35:38* Test Item Value Reference Range Interpretation Comme nts LIPASE (test code = 5667445903) 2049 U/L 0-220 H Lab Interpretation (test cod e = 86539-8) Abnormal [facility] WITH [id number] 22:30:10* Test Item Value Reference Range Interpretation [...] 34.6 g/dL 31.6-35.1 RDW-SD (test code = 81445-1) 42.7 fL 39.0-49.9 RDW-CV (test code = 788-0) 14.6 % 12.0-15.5 PLT (test code = 777-3) 331 See_Comment [Automated messa ge] The system which generated this result transmitted reference range: 166 - 358 10*3/?L. The reference range was not used to interpret this result as normal/abnormal. MPV (test code = 12755-9) 9.7 fL 9.5-12.9 NRBC/100 WBC (test code = 5833230359) 0.0 See_Comment [Automated [employer] ssage] The system which generated this result transmitted reference range: 0.0 - 10.0 /100 WBCs. The reference range was not used to interpret this result as normal/abnormal. NRBC x10^3 (test code = 8360583526) See_Comment [Automated messa ge] The system which generated this result transmitted reference range: 10*3/?L. The reference range was not used to interpret this result as normal/abnormal. GRAN MAT (NEUT) % (test code = 770-8) 65.7 % IMM GRAN % (test code = 7867504249) 0.50 % LYMPH % (test code = 736-9) 26.5 % MONO % (test code = 5905-5) 5.4 % EOS % (test code = 713-8) 1.5 % BASO % (test code = 706-2) 0.4 % GRAN MAT x10^3(ANC) (test code = 9535967836) 8.05 10*3/uL 1.88-7.09 H IMM GRAN x10^3 (test code = 6775758503) 0.06 10*3/uL 0.00-0.06 LYMPH x10^3 (test code = 731-0) 3.24 10*3/uL 1.32-3.29 MONO x10^3 (test code = 742-7) 0.66 10*3/uL 0.33-0.92 EOS x10^3 (test code = 711-2) 0.18 10*3/uL 0.03-0.39 BASO x10^3 (test code = 704-7) 0.05 10*3/uL 0.01-0.07 Lab Interpretation (test code = 60976-9) [facility] METABOLIC PANEL (57521)2023-02-15 22:27:47* Test Item Value Reference Range Interpretation Comme nts NA (test code = 1522883041) 138 mmol/L 135-145 K (test code = 1958778276) 3.7 mmol/L 3.5-5.0 CL (test code = 4979087581) 105 mmol/L 98-108 CO2 TOTAL (test code = 4365894120) 23 mmol/L 23-31 AGAP (test code = 0082534921) 10 2-16 BUN (test code = 2996098886) 6 mg/dL 7-23 L GLUCOSE (test code = 1000557520) 92 mg/dL 70-110 CREATININE (test code = 2559285208) 0.77 mg/dL 0.50-1.04 TOTAL BILI (test code = 6775889194) 0.7 mg/dL 0.1-1.1 CALCIUM (test code = 0087047234) 9.0 mg/dL 8.6-10.6 T PROTEIN (test code = 0835884573) 7.5 g/dL 6.3-8.2 ALBUMIN (test code = 9155786754) 4.0 g/dL 3.5-5.0 ALK PHOS (test code = 0730672465) 101 U/L 34-122 ALTv (test code = 1742-6) 25 U/L 5-35 AST(SGOT) (test code = 6595630881) 36 U/L 13-40 eGFR (test code = 4343212743) 81.8 mL/min/1.73m2 DARWIN (test code = DARWIN) [...] imaging tests). Lab Interpretation (test code = 32435-0) [facility]normal [facility] Dallas[facility]-NJWIS5719-90-47 20:56:28* Test Item Value Reference Range Interpretation Comments D-DIMER (test code = 0528145591) 0.44 See_Comment H [Automated message] The system [...] a diagnosis. Lab Interpretation (test code = 66899-3) Abnormal [facility] [id number] 01:15:16* Test Item Value Reference Range Interpretation Comments TROPONIN I (test code = 0057435068) 0.001 ng/mL See_Comment [Automated message] The system which generated this result transmitted reference range: <=0.034. The reference range was not used to interpret this result as normal/abnormal. DARWIN (test code = DARIWN) Reference (Normal) Range (defined by the 99th [...] of biotin. Lab Interpretation (test code = 45059-7) Normal [facility] [id number] 22:52:31* Test Item Value Reference Range Interpretation Comments TROPONIN I (test code = 8902902529) 0.001 ng/mL See_Comment [Automated message] The system [...] of biotin. Lab Interpretation (test code = 81739-6) Normal [facility] AV[facility]-[id number] 22:49:33* Test Item Value Reference Range Interpretation Comme nts NT-proBNP (test code = 0565477467) 145 pg/mL See_Comment H [Automated message] The system which generated this result transmitted reference range: <=125. The reference range was not used to interpret this result as normal/abnormal. DARWIN (test code = DARWIN) Biotin has been reported to cause a negative bias, interpret results relative to patient's use of biotin. Lab Interpretation (test code = 99867-1) Abnormal [facility] METABOLIC PANEL (NA, K, CL, CO2, GLUCOSE, BUN, CREATININE, CA)2022-01-09 22:40:32* Test Item Value Reference Range Interpretation Comme nts NA (test code = 7973880476) 142 mmol/L 135-145 K (test code = 7151056470) 3.3 mmol/L 3.5-5.0 L CL (test code = 7318506678) 109 mmol/L 98-108 H CO2 TOTAL (test code = 7019896403) 22 mmol/L 23-31 L AGAP (test code = 8671316359) 2-16 BUN (test code = 6454879012) 9 mg/dL 7-23 GLUCOSE (test code = 3309048299) 116 mg/dL 70-110 H CREATININE (test code = 3697238640) 0.69 mg/dL 0.50-1.04 CALCIUM (test code = 1861592358) 9.2 mg/dL 8.6-10.6 eGFR (test code = 8990917476) mL/min/1.73m2 DARWIN (test code = DARWIN) Association [...] imaging tests). Lab Interpretation (test code = 25597-0) Abnormal [facility] WITH [id number] 22:29:09* Test Item Value Reference Range Interpretation Comme nts WBC (test code = 6690-2) See_Comment [[employer]] The system which generated this result transmitted reference range: 4.30 - 11.10 10*3/?L. The reference range was not used to interpret this result as normal/abnormal. RBC (test code = 789-8) See_Comment [[employer]] The system which generated this result transmitted [...] 34.4 g/dL 31.6-35.1 RDW-SD (test code = 27021-0) 40.7 fL 39.0-49.9 RDW-CV (test code = 788-0) 14.1 % 12.0-15.5 PLT (test code = 777-3) See_Comment [[employer]] The system which generated this result transmitted reference range: 166 - 358 10*3/?L. The reference range was not used to interpret this result as normal/abnormal. MPV (test code = 51821-7) 9.6 fL 9.5-12.9 NRBC/100 WBC (test code = 0916658207) See_Comment [Automated me ssage] The system which generated this result transmitted reference range: 0.0 - 10.0 /100 WBCs. The reference range was not used to interpret this result as normal/abnormal. NRBC x10^3 (test code = 9189219887) <0.01 See_Comment [Automated messa ge] The system which generated this result transmitted reference range: 10*3/?L. The reference range was not used to interpret this result as normal/abnormal. GRAN MAT (NEUT) % (test code = 770-8) 54.7 % IMM GRAN % (test code = 3109275945) 0.40 % LYMPH % (test code = 736-9) 33.8 % MONO % (test code = 5905-5) 7.1 % EOS % (test code = 713-8) 3.3 % BASO % (test code = 706-2) 0.7 % GRAN MAT x10^3(ANC) (test code = 1432058716) 4.87 10*3/uL 1.88-7.09 IMM GRAN x10^3 (test code = 7091187866) 0.04 10*3/uL 0.00-0.06 LYMPH x10^3 (test code = 731-0) 3.01 10*3/uL 1.32-3.29 MONO x10^3 (test code = 742-7) 0.63 10*3/uL 0.33-0.92 EOS x10^3 (test code = 711-2) 0.29 10*3/uL 0.03-0.39 BASO x10^3 (test code = 704-7) 0.06 10*3/uL 0.01-0.07 Lab Interpretation (test code = 65831-7) [id number] 06:45:45* Test Item Value Reference Range Interpretation Comments TROPONIN I (test code = 3201759329) 0.000 ng/mL See_Comment [Automated message] The system [...] of biotin. Lab Interpretation (test code = 46934-5) [facility] [id number] 05:00:55 * Test Item Value Reference Range Interpretation Comme nts TSH (test code = 0759722332) See_Comment [Automated [employer]] The system which generated this result transmitted reference range: 0.45 - 4.70 mIU/L. The reference range was not used to interpret this result as normal/abnormal. Lab Interpretation (test code = 36768-7) Normal [facility] [id number] 04:47:50* Test Item Value Reference Range Interpretation Comme nts FREE T4 (test code = 4963475994) See_Comment [Automated [employer]] The system which generated this result transmitted reference range: 0.78 - 2.20 ng/dL:. The reference range was not used to interpret this result as normal/abnormal. Lab Interpretation (test code = 52631-2) Normal [facility] [id number] 04:47:10* Test Item Value Reference Range Interpretation Comme nts FREE T3 (test code = 9550209777) 4.37 pg/mL 2.77-5.27 Lab Interpretation (test cod e = 67509-8) [id number]:07* Test Item Value Reference Range Interpretation Comments TROPONIN I (test code = 8614998322) 0.001 ng/mL See_Comment [Automated message] The system [...] of biotin. Lab Interpretation (test code = 48475-4) Normal [facility]. METABOLIC PANEL (25400)2021-12-14 04:30:28* Test Item Value Reference Range Interpretation Comme nts NA (test code = 8757875222) 141 mmol/L 135-145 K (test code = 6969379782) 3.6 mmol/L 3.5-5.0 CL (test code = 4638282619) 111 mmol/L 98-108 H CO2 TOTAL (test code = 8303190069) 19 mmol/L 23-31 L AGAP (test code = 9276383939) 2-16 BUN (test code = 1407336779) 15 mg/dL 7-23 GLUCOSE (test code = 0555329277) 113 mg/dL 70-110 H CREATININE (test code = 3544299181) 1.05 mg/dL 0.50-1.04 H TOTAL BILI (test code = 9262991161) 0.2 mg/dL 0.1-1.1 CALCIUM (test code = 0494670877) 9.8 mg/dL 8.6-10.6 T PROTEIN (test code = 8723936081) 6.8 g/dL 6.3-8.2 ALBUMIN (test code = 0482733158) 4.2 g/dL 3.5-5.0 ALK PHOS (test code = 7893383488) 73 U/L 34-122 ALTv (test code = 1742-6) 16 U/L 5-35 AST(SGOT) (test code = 3758458059) 19 U/L 13-40 eGFR (test code = 2253381612) mL/min/1.73m2 DARWIN (test code = DARWIN) Association [...] imaging tests). Lab Interpretation (test code = 67488-3) [facility] 04[facility]29:48* Test Item Value Reference Range Interpretation Comme nts LIPASE (test code = 7896103360) 225 U/L 0-220 H Lab Interpretation (test cod e = 22350-9) [facility] [id number] 04:20:00* Test Item Value Reference Range Interpretation Comme nts POCT PREG (test code = 1605) negative On board controls acceptable with C Line (test code = 3574) present POCT PREG LOT # (test code = 4520) [id number] POCT PREG TEST DATE ( test code = 3577) 2023-05-07 Lab Interpretation (test cod e = 48787-8) Normal [facility] WITH [id number] 04:01:25* Test Item Value Reference Range Interpretation [...] 34.3 g/dL 31.6-35.1 RDW-SD (test code = 84241-0) 39.5 fL 39.0-49.9 RDW-CV (test code = 788-0) 13.6 % 12.0-15.5 PLT (test code = 777-3) See_Comment [Automated messa ge] The system which generated this result transmitted reference range: 166 - 358 10*3/?L. The reference range was not used to interpret this result as normal/abnormal. MPV (test code = 78337-7) 9.9 fL 9.5-12.9 NRBC/100 WBC (test code = 9478242574) See_Comment [Automated [employer] ssage] The system which generated this result transmitted reference range: 0.0 - 10.0 /100 WBCs. The reference range was not used to interpret this result as normal/abnormal. NRBC x10^3 (test code = 1053456223) <0.01 See_Comment [Automated messa ge] The system which generated this result transmitted reference range: 10*3/?L. The reference range was not used to interpret this result as normal/abnormal. GRAN MAT (NEUT) % (test code = 770-8) 51.5 % IMM GRAN % (test code = 1602097252) 0.50 % LYMPH % (test code = 736-9) 35.8 % MONO % (test code = 5905-5) 9.4 % EOS % (test code = 713-8) 2.2 % BASO % (test code = 706-2) 0.6 % GRAN MAT x10^3(ANC) (test code = 9843882178) 5.37 10*3/uL 1.88-7.09 IMM GRAN x10^3 (test code = 2177958730) 0.05 10*3/uL 0.00-0.06 LYMPH x10^3 (test code = 731-0) 3.73 10*3/uL 1.32-3.29 H MONO x10^3 (test code = 742-7) 0.98 10*3/uL 0.33-0.92 H EOS x10^3 (test code = 711-2) 0.23 10*3/uL 0.03-0.39 BASO x10^3 (test code = 704-7) 0.06 10*3/uL 0.01-0.07 Lab Interpretation (test code = 07109-5) [id number] 04:04:13* Test Item Value Reference Range Interpretation Comments TROPONIN I (test code = 6700407795) 0.001 ng/mL See_Comment [Automated message] The system [...] of biotin. Lab Interpretation (test code = 86858-6) [facility] [id number] 02:56:00* Test Item Value Reference Range Interpretation Comme nts POCT PREG (test code = 1605) negative On board controls acceptable with C Line (test code = 3574) present POCT PREG LOT # (test code = 3575) [id number] POCT PREG TEST DATE ( test code = 3576) 2023-04-06 Lab Interpretation (test cod e = 58531-7) Normal [facility] [id number] 02:15:30* Test Item Value Reference Range Interpretation Comments TROPONIN I (test code = 4944094940) 0.000 ng/mL See_Comment [Automated message] The system [...] of biotin. Lab Interpretation (test code = 51843-6) Normal [facility]MINAL [id number] 02:12:14* Test Item Value Reference Range Interpretation Comme nts NT-proBNP (test code = 9286077796) 109 pg/mL See_Comment [Automated message] The system which generated this result transmitted reference range: <=125. The reference range was not used to interpret this result as normal/abnormal. DARWIN (test code = DARWIN) Biotin has been reported to cause a negative bias, interpret results relative to patient's use of biotin. Lab Interpretation (test code = 20951-0) Normal [facility] DallasCOMP[facility] METABOLIC PANEL (87079)2021-11-12 02:04:12* Test Item Value Reference Range Interpretation Comme nts NA (test code = 2074973359) 140 mmol/L 135-145 K (test code = 2274775729) 4.0 mmol/L 3.5-5.0 CL (test code = 0721875330) 111 mmol/L 98-108 H CO2 TOTAL (test code = 4802982706) 17 mmol/L 23-31 L AGAP (test code = 2469897115) 2-16 BUN (test code = 9210574290) 9 mg/dL 7-23 GLUCOSE (test code = 3802092072) 105 mg/dL 70-110 CREATININE (test code = 8801734070) 0.72 mg/dL 0.50-1.04 TOTAL BILI (test code = 3678819631) 0.4 mg/dL 0.1-1.1 CALCIUM (test code = 4011561442) 9.3 mg/dL 8.6-10.6 T PROTEIN (test code = 7360328085) 6.6 g/dL 6.3-8.2 ALBUMIN (test code = 3385992094) 4.0 g/dL 3.5-5.0 ALK PHOS (test code = 7091398150) 70 U/L 34-122 ALTv (test code = 1742-6) 19 U/L 5-35 AST(SGOT) (test code = 7897627318) 21 U/L 13-40 eGFR (test code = 1471010044) mL/min/1.73m2 DARWIN (test code = DARWIN) Association [...] imaging tests). Lab Interpretation (test code = 93648-1) [facility]normal [facility] 02:03:32* Test Item Value Reference Range Interpretation Comme nts LIPASE (test code = 9114782879) 173 U/L 0-220 Lab Interpretation (test cod e = 77955-8) Normal [facility] WITH [id number] 01:43:53* Test Item Value Reference Range Interpretation Comme nts WBC (test code = 6690-2) See_Comment [Wello] The system which generated this result transmitted reference range: 4.30 - 11.10 10*3/?L. The reference range was not used to interpret this result as normal/abnormal. RBC (test code = 789-8) See_Comment [Well[employer]] The system which generated this result transmitted [...] 33.7 g/dL 31.6-35.1 RDW-SD (test code = 94534-7) 41.3 fL 39.0-49.9 RDW-CV (test code = 788-0) 14.3 % 12.0-15.5 PLT (test code = 777-3) See_Comment [Automated messa ge] The system which generated this result transmitted reference range: 166 - 358 10*3/?L. The reference range was not used to interpret this result as normal/abnormal. MPV (test code = 79587-0) 9.7 fL 9.5-12.9 NRBC/100 WBC (test code = 7408073211) See_Comment [Automated RawFlow ssage] The system which generated this result transmitted reference range: 0.0 - 10.0 /100 WBCs. The reference range was not used to interpret this result as normal/abnormal. NRBC x10^3 (test code = 1026005375) <0.01 See_Comment [Automated messa ge] The system which generated this result transmitted reference range: 10*3/?L. The reference range was not used to interpret this result as normal/abnormal. GRAN MAT (NEUT) % (test code = 770-8) 62.6 % IMM GRAN % (test code = 2734678092) 0.50 % LYMPH % (test code = 736-9) 27.0 % MONO % (test code = 5905-5) 6.5 % EOS % (test code = 713-8) 2.9 % BASO % (test code = 706-2) 0.5 % GRAN MAT x10^3(ANC) (test code = 6612597712) 6.30 10*3/uL 1.88-7.09 IMM GRAN x10^3 (test code = 4096104970) 0.05 10*3/uL 0.00-0.06 LYMPH x10^3 (test code = 731-0) 2.71 10*3/uL 1.32-3.29 MONO x10^3 (test code = 742-7) 0.65 10*3/uL 0.33-0.92 EOS x10^3 (test code = 711-2) 0.29 10*3/uL 0.03-0.39 BASO x10^3 (test code = 704-7) 0.05 10*3/uL 0.01-0.07 Lab Interpretation (test code = 55600-5) [facility]normal [facility]PO[facility] [id number] 02:21:00* Test Item Value Reference Range Interpretation Comme nts POCT PREG (test code = 1605) Negative On board controls acceptable with C Line (test code = 3574) Present Lab Interpretation (test cod e = 85246-2) Normal [facility] DallasComplete Metabolic Lfdkk6185-06-94 02:05:50* Test Item Value Reference Range Interpretation Comme nts NA (test code = 7661867102) 137 mmol/L 135-145 K (test code = 2633984162) 3.9 mmol/L 3.5-5.0 CL (test code = 6116106443) 109 mmol/L 98-108 H CO2 TOTAL (test code = 7696068888) 19 mmol/L 23-31 L AGAP (test code = 2831884577) 2-16 BUN (test code = 9544340781) 10 mg/dL 7-23 GLUCOSE (test code = 5820441867) 101 mg/dL 70-110 CREATININE (test code = 8196231548) 0.80 mg/dL 0.50-1.04 TOTAL BILI (test code = 0082910857) 0.3 mg/dL 0.1-1.1 CALCIUM (test code = 7325567729) 8.8 mg/dL 8.6-10.6 T PROTEIN (test code = 9064363240) 6.6 g/dL 6.3-8.2 ALBUMIN (test code = 9767280838) 4.0 g/dL 3.5-5.0 ALK PHOS (test code = 2055807845) 71 U/L 34-122 ALTv (test code = 1742-6) 18 U/L 5-35 AST(SGOT) (test code = 6129288408) 20 U/L 13-40 eGFR (test code = 2173108203) mL/min/1.73m2 DARWIN (test code = DARWIN) Association [...] imaging tests). Lab Interpretation (test code = 00139-0) [facility]normal [facility] DallasLip[facility], Zjimz4152-89-40 02:05:25* Test Item Value Reference Range Interpretation Comme nts LIPASE (test code = 9898723817) 96 U/L 0-220 Lab Interpretation (test cod e = 51626-4) Normal [facility] DallasCB with Touxnaymzezh1004-76-24 01:53:06* Test Item Value Reference Range Interpretation Comme nts WBC (test code = 6690-2) See_Comment H [Automated [employer]] The system which generated this result transmitted reference range: 4.30 - 11.10 10*3/?L. The reference range was not used to interpret this result as normal/abnormal. RBC (test code = 789-8) See_Comment H [Automated [employer]] The system which generated this result transmitted [...] 34.3 g/dL 31.6-35.1 RDW-SD (test code = 54914-6) 40.5 fL 39.0-49.9 RDW-CV (test code = 788-0) 14.4 % 12.0-15.5 PLT (test code = 777-3) See_Comment [Automated messa ge] The system which generated this result transmitted reference range: 166 - 358 10*3/?L. The reference range was not used to interpret this result as normal/abnormal. MPV (test code = 17028-6) 9.4 fL 9.5-12.9 L NRBC/100 WBC (test code = 9140941626) See_Comment [Automated [employer] ssage] The system which generated this result transmitted reference range: 0.0 - 10.0 /100 WBCs. The reference range was not used to interpret this result as normal/abnormal. NRBC x10^3 (test code = 2087363068) <0.01 See_Comment [Automated [employer] ge] The system which generated this result transmitted reference range: 10*3/?L. The reference range was not used to interpret this result as normal/abnormal. GRAN MAT (NEUT) % (test code = 770-8) 59.8 % IMM GRAN % (test code = 9130974720) 0.40 % LYMPH % (test code = 736-9) 31.0 % MONO % (test code = 5905-5) 6.3 % EOS % (test code = 713-8) 2.0 % BASO % (test code = 706-2) 0.5 % GRAN MAT x10^3(ANC) (test code = 0787744061) 6.73 10*3/uL 1.88-7.09 IMM GRAN x10^3 (test code = 7480496163) 0.05 10*3/uL 0.00-0.06 LYMPH x10^3 (test code = 731-0) 3.50 10*3/uL 1.32-3.29 H MONO x10^3 (test code = 742-7) 0.71 10*3/uL 0.33-0.92 EOS x10^3 (test code = 711-2) 0.23 10*3/uL 0.03-0.39 BASO x10^3 (test code = 704-7) 0.06 10*3/uL 0.01-0.07 Lab Interpretation (test code = 88846-0) Abnormal [facility] Veza8390-59-33 01:45:00* Test Item Value Reference Range Interpretation Comme nts POCT PREG (test code = 1605) negatibe On board controls acceptable with C Line (test code = 3574) present POCT PREG LOT # (test code = 3575) [id number] POCT PREG TEST DATE ( test code = 3576) 09/04/2022 Lab Interpretation (test cod e = 29671-3) Normal [facility] JLBY7120-70-48 06:35:00* Test Item Value Reference Range Interpretation Comme nts POCT PREG (test code = 1605) negative On board controls acceptable with C Line (test code = 3574) present POCT PREG LOT # (test code = 3575) [id number] POCT PREG TEST DATE ( test code = 3576) Lab Interpretation (test cod e = 46921-6) [facility] E7917[facility]84-69 09:09:55* Test Item Value Reference Range Interpretation Comments TROPONIN I (test code = 3799251390) 0.001 ng/mL See_Comment [Automated message] The system [...] of biotin. Lab Interpretation (test code = 47068-9) Normal [facility] DallasD-VCDYS0402-93-08 07:23:51* Test Item Value Reference Range Interpretation Comments D-DIMER (test code = 2406042598) See_Comment [Automated message] The system which generated [...] a diagnosis. Lab Interpretation (test code = 25235-1) Normal [facility] DallasLIPASE2021-[facility]-21 06:11:26* Test Item Value Reference Range Interpretation Comme nts LIPASE (test code = 1558370594) 155 U/L 0-220 Lab Interpretation (test cod e = 31793-7) Normal [facility] DallasTROPONIN G1142-10-76 06:06:05* Test Item Value Reference Range Interpretation Comments TROPONIN I (test code = 6919099626) 0.002 ng/mL See_Comment [Automated message] The system [...] of biotin. Lab Interpretation (test code = 10117-3) Normal [facility] DallasN-TERMINAL PKZ-JAU5373-05-21 06:03:04* Test Item Value Reference Range Interpretation Comme nts NT-proBNP (test code = 4809588176) 19 pg/mL See_Comment [Automated message] The system which generated this result transmitted reference range: <=125. The reference range was not used to interpret this result as normal/abnormal. DARWIN (test code = DARWIN) Biotin has been reported to cause a negative bias, interpret results relative to patient's use of biotin. Lab Interpretation (test code = 35637-7) Normal [facility] DallasCOMP. METABOLIC PANEL (55764)2021-05-28 05:54:25* Test Item Value Reference Range Interpretation Comme nts NA (test code = 3708978058) 136 mmol/L 135-145 K (test code = 2393827434) 3.2 mmol/L 3.5-5.0 L CL (test code = 1790583602) 109 mmol/L 98-108 H CO2 TOTAL (test code = 6042681357) 16 mmol/L 23-31 L AGAP (test code = 7280642889) 2-16 BUN (test code = 3359769733) 11 mg/dL 7-23 GLUCOSE (test code = 7766610245) 144 mg/dL 70-110 H CREATININE (test code = 1747084589) 0.84 mg/dL 0.50-1.04 TOTAL BILI (test code = 6744190036) 0.2 mg/dL 0.1-1.1 CALCIUM (test code = 9522740839) 9.4 mg/dL 8.6-10.6 T PROTEIN (test code = 9080378842) 6.9 g/dL 6.3-8.2 ALBUMIN (test code = 7211089306) 3.9 g/dL 3.5-5.0 ALK PHOS (test code = 4478840753) 106 U/L 34-122 ALTv (test code = 1742-6) 20 U/L 5-35 AST(SGOT) (test code = 8402138670) 17 U/L 13-40 eGFR (test code = 1664162244) mL/min/1.73m2 DARWIN (test code = DARWIN) Association [...] imaging tests). Lab Interpretation (test code = 79901-1) Abnormal [facility] WITH [id number] 05:40:06* Test Item Value Reference Range Interpretation Comme nts WBC (test code = 6690-2) See_Comment [Automated [employer]] The system which generated this result transmitted reference range: 4.30 - 11.10 10*3/?L. The reference range was not used to interpret this result as normal/abnormal. RBC (test code = 789-8) See_Comment [Automated [employer] ge] The system which generated this result [...] 33.3 g/dL 31.6-35.1 RDW-SD (test code = 70275-5) 39.7 fL 39.0-49.9 RDW-CV (test code = 788-0) 13.6 % 12.0-15.5 PLT (test code = 777-3) See_Comment [Automated [employer] ge] The system which generated this result transmitted reference range: 166 - 358 10*3/?L. The reference range was not used to interpret this result as normal/abnormal. MPV (test code = 42576-5) 9.5 fL 9.5-12.9 NRBC/100 WBC (test code = 3841878442) See_Comment [Automated [employer] ssage] The system which generated this result transmitted reference range: 0.0 - 10.0 /100 WBCs. The reference range was not used to interpret this result as normal/abnormal. NRBC x10^3 (test code = 6086697711) <0.01 See_Comment [Automated [employer] ge] The system which generated this result transmitted reference range: 10*3/?L. The reference range was not used to interpret this result as normal/abnormal. GRAN MAT (NEUT) % (test code = 770-8) 53.7 % IMM GRAN % (test code = 7706705657) 0.50 % LYMPH % (test code = 736-9) 36.0 % MONO % (test code = 5905-5) 6.3 % EOS % (test code = 713-8) 2.8 % BASO % (test code = 706-2) 0.7 % GRAN MAT x10^3(ANC) (test code = 3511584823) 5.38 10*3/uL 1.88-7.09 IMM GRAN x10^3 (test code = 6472547212) 0.05 10*3/uL 0.00-0.06 LYMPH x10^3 (test code = 731-0) 3.60 10*3/uL 1.32-3.29 H MONO x10^3 (test code = 742-7) 0.63 10*3/uL 0.33-0.92 EOS x10^3 (test code = 711-2) 0.28 10*3/uL 0.03-0.39 BASO x10^3 (test code = 704-7) 0.07 10*3/uL 0.01-0.07 Lab Interpretation (test code = 55191-9) [facility] NMWQ2495-06-69 05:32:00* Test Item Value Reference Range Interpretation Comme nts POCT PREG (test code = 1605) negative On board controls acceptable with C Line (test code = 3574) present POCT PREG LOT # (test code = 3575) [id number] POCT PREG TEST DATE ( test code = 3576) 08/07/2022 Lab Interpretation (test cod e = 55840-1) Normal [facility] DallasTroponin [id number] 11:13:57* Test Item Value Reference Range Interpretation Comments TROPONIN I (test code = 9524928162) 0.002 ng/mL See_Comment [Automated message] The system [...] of biotin. Lab Interpretation (test code = 52556-6) Normal [facility] Metabolic Panel (NA, K, CL, CO2, GLUCOSE, BUN, CREATININE, CA)2021-04-08 11:04:34* Test Item Value Reference Range Interpretation Comme nts NA (test code = 7273449807) 140 mmol/L 135-145 K (test code = 0433016758) 3.6 mmol/L 3.5-5.0 CL (test code = 8330175038) 111 mmol/L 98-108 H CO2 TOTAL (test code = 3307569885) 22 mmol/L 23-31 L AGAP (test code = 3468759192) 2-16 BUN (test code = 9051677011) 10 mg/dL 7-23 GLUCOSE (test code = 9611365098) 104 mg/dL 70-110 CREATININE (test code = 8074834969) 0.70 mg/dL 0.50-1.04 CALCIUM (test code = 1092057298) 8.7 mg/dL 8.6-10.6 eGFR (test code = 5116332856) mL/min/1.73m2 DARWIN (test code = DARWIN) Association [...] imaging tests). Lab Interpretation (test code = 05728-4) Abnormal [facility] with Ysatqtnfpzhg1494-39-71 10:46:50* Test Item Value Reference Range Interpretation Comme nts WBC (test code = 6690-2) See_Comment [Automated [employer] ge] The system which generated this result transmitted reference range: 4.30 - 11.10 10*3/?L. The reference range was not used to interpret this result as normal/abnormal. RBC (test code = 789-8) See_Comment [Automated [employer] ge] The system which generated this result [...] 33.5 g/dL 31.6-35.1 RDW-SD (test code = 45061-7) 42.0 fL 39.0-49.9 RDW-CV (test code = 788-0) 14.1 % 12.0-15.5 PLT (test code = 777-3) See_Comment [Automated [employer] ge] The system which generated this result transmitted reference range: 166 - 358 10*3/?L. The reference range was not used to interpret this result as normal/abnormal. MPV (test code = 69490-5) 10.0 fL 9.5-12.9 NRBC/100 WBC (test code = 1365917405) See_Comment [Automated [employer] ssage] The system which generated this result transmitted reference range: 0.0 - 10.0 /100 WBCs. The reference range was not used to interpret this result as normal/abnormal. NRBC x10^3 (test code = 7395046808) <0.01 See_Comment [Automated me ssage] The system which generated this result transmitted reference range: 10*3/?L. The reference range was not used to interpret this result as normal/abnormal. GRAN MAT (NEUT) % (test code = 770-8) 59.1 % IMM GRAN % (test code = 5640990960) 0.70 % LYMPH % (test code = 736-9) 28.2 % MONO % (test code = 5905-5) 8.5 % EOS % (test code = 713-8) 3.0 % BASO % (test code = 706-2) 0.5 % GRAN MAT x10^3(ANC) (test code = 8963205250) 3.61 10*3/uL 1.88-7.09 IMM GRAN x10^3 (test code = 0178361589) 0.04 10*3/uL 0.00-0.06 LYMPH x10^3 (test code = 731-0) 1.72 10*3/uL 1.32-3.29 MONO x10^3 (test code = 742-7) 0.52 10*3/uL 0.33-0.92 EOS x10^3 (test code = 711-2) 0.18 10*3/uL 0.03-0.39 BASO x10^3 (test code = 704-7) 0.03 10*3/uL 0.01-0.07 [facility] [id number] 05:54:48* Test Item Value Reference Range Interpretation Comments TROPONIN I (test code = 0750724979) 0.002 ng/mL See_Comment [Automated message] The system [...] of biotin. Lab Interpretation (test code = 05646-3) [facility] DallasThyroid Stimulating Hormone (TSH)2021-04-08 00:51:16* Test Item Value Reference Range Interpretation Comme nts TSH (test code = 6055215473) See_Comment [Automated [employer]] The system which generated this result transmitted reference range: 0.45 - 4.70 mIU/L. The reference range was not used to interpret this result as normal/abnormal. Lab Interpretation (test code = 81707-8) Normal [facility] DallasGlycosylated Hemoglobin (A1C)2021-04-08 00:26:53* Test Item Value Reference Range Interpretation Comme nts HGB A1C (test code = 4548-4) 5.5 % 4.0-5.7 DARWIN (test code = DARWIN) Reference RangesNormal: <5.7%Prediabetes: 5.7 - 6.4%Diabetes: > 6.5% Lab Interpretation (test code = 34801-7) Normal [facility] DallasLipid Panel (Total Cholesterol, Triglycerides, HDL)2021-04-08 00:20:12* Test Item Value Reference Range Interpretation Comme nts CHOL (test code = 7844458472) 223 mg/dL 120-200 H HDL (test code = 6379877687) 35 mg/dL >50 L HDLC RATIO (test code = 0286813041) See_Comment H [Automated [employer]] The system which generated this result transmitted reference range: <=4.5. The reference range was not used to interpret this result as normal/abnormal. TRIG (test code = 6167796784) 223 mg/dL 30-170 H LDL CHOL (test code = 21319-6) 143 mg/dL See_Comment [Automated [employer] ge] The system which generated this result transmitted reference range: <=160. The reference range was not used to interpret this result as normal/abnormal. VLDL (test code = 4320055131) 45 mg/dL 5-60 Lab Interpretation (test code = 45672-2) [facility]normal [facility] DallasMagnesium Yymhf8849-41-02 00:20:07* Test Item Value Reference Range Interpretation Comme nts MAGNESIUM (test code = 2774939761) 1.7 mg/dL 1.7-2.4 Lab Interpretation (test cod e = 98556-7) Normal [facility] DallasCOMP. METABOLIC PANEL (12841)2021-04-07 23:04:13* Test Item Value Reference Range Interpretation Comme nts NA (test code = 1996671315) 139 mmol/L 135-145 K (test code = 1561905459) 3.4 mmol/L 3.5-5.0 L CL (test code = 1478154574) 109 mmol/L 98-108 H CO2 TOTAL (test code = 5316764555) 22 mmol/L 23-31 L AGAP (test code = 2857820808) 2-16 BUN (test code = 7215679120) 10 mg/dL 7-23 GLUCOSE (test code = 1928781596) 97 mg/dL 70-110 CREATININE (test code = 1991201935) 0.84 mg/dL 0.50-1.04 TOTAL BILI (test code = 6860756474) 0.3 mg/dL 0.1-1.1 CALCIUM (test code = 3276783536) 9.2 mg/dL 8.6-10.6 T PROTEIN (test code = 4949136852) 6.6 g/dL 6.3-8.2 ALBUMIN (test code = 0294495782) 3.8 g/dL 3.5-5.0 ALK PHOS (test code = 5714156723) 69 U/L 34-122 ALTv (test code = 1742-6) 18 U/L 5-35 AST(SGOT) (test code = 7329778084) 19 U/L 13-40 eGFR (test code = 9645695827) mL/min/1.73m2 DARWIN (test code = DARWIN) Association [...] imaging tests). Lab Interpretation (test code = 71180-1) Abnormal [facility] DallasTRFORMERLY [facility] U7591-12-03 22:33:04* Test Item Value Reference Range Interpretation Comments TROPONIN I (test code = 9071110728) 0.001 ng/mL See_Comment [Automated message] The system [...] of biotin. Lab Interpretation (test code = 20799-3) Normal [facility] DallasN-TERMINAL JJJ-FBV6454-35-01 22:30:05* Test Item Value Reference Range Interpretation Comme nts NT-proBNP (test code = 8837946067) 352 pg/mL See_Comment H [Automated message] The system which generated this result transmitted reference range: <=125. The reference range was not used to interpret this result as normal/abnormal. DARWIN (test code = DARWIN) Biotin has been reported to cause a negative bias, interpret results relative to patient's use of biotin. Lab Interpretation (test code = 33922-2) Abnormal [facility] DallasACTIVATED PARTIAL THRMPLAS IJF9258-97-68 22:28:48* Test Item Value Reference Range Interpretation Comme nts APTT Patient (test code = 3173-2) See_Comment [Automated message] The system which generated this result transmitted reference range: 23 - 38 Seconds. The reference range was not used to interpret this result as normal/abnormal. DARWIN (test code = DARWIN) The [facility] patient population mean normal value for aPTT is 30 seconds. Lab Interpretation (test code = 96884-4) Normal [facility] DallasPROTHROMBIN TIME / BJM0003-90-20 22:26:44* Test Item Value Reference Range Interpretation Comme nts PROTIME PATIENT (test code = 5964-2) See_Comment [Automated [employer] ge] The system which generated this result transmitted reference range: 12.0 - 14.7 Seconds. The reference range was not used to interpret this result as normal/abnormal. INR (test code = 6301-6) Normal INR <1.1; Warfarin Therapeutic range 2.0 to 3.0 or 2.5 to 3.5, depending upon the indications. Lab Interpretation (test code = 60759-9) Normal [facility] [place] 22:20:05* Test Item Value Reference Range Interpretation Comme nts LIPASE (test code = 3295650259) 66 U/L 0-220 Lab Interpretation (test cod e = 73757-6) [facility] [id number] 22:07:01* Test Item Value Reference Range Interpretation Comme nts WBC (test code = 6690-2) See_Comment [Automated [employer] ge] The system which generated this result [...] 33.2 g/dL 31.6-35.1 RDW-SD (test code = 07259-8) 41.6 fL 39.0-49.9 RDW-CV (test code = 788-0) 14.1 % 12.0-15.5 PLT (test code = 777-3) See_Comment [Automated [employer] ge] The system which generated this result transmitted reference range: 166 - 358 10*3/?L. The reference range was not used to interpret this result as normal/abnormal. MPV (test code = 04265-6) 9.2 fL 9.5-12.9 L NRBC/100 WBC (test code = 4214185305) See_Comment [Automated [employer] ssage] The system which generated this result transmitted reference range: 0.0 - 10.0 /100 WBCs. The reference range was not used to interpret this result as normal/abnormal. NRBC x10^3 (test code = 9266332163) <0.01 See_Comment [Automated messa ge] The system which generated this result transmitted reference range: 10*3/?L. The reference range was not used to interpret this result as normal/abnormal. GRAN MAT (NEUT) % (test code = 770-8) 61.6 % IMM GRAN % (test code = 9649739630) 0.60 % LYMPH % (test code = 736-9) 28.7 % MONO % (test code = 5905-5) 4.9 % EOS % (test code = 713-8) 3.7 % BASO % (test code = 706-2) 0.5 % GRAN MAT x10^3(ANC) (test code = 2009124220) 6.24 10*3/uL 1.88-7.09 IMM GRAN x10^3 (test code = 0051620244) 0.06 10*3/uL 0.00-0.06 LYMPH x10^3 (test code = 731-0) 2.90 10*3/uL 1.32-3.29 MONO x10^3 (test code = 742-7) 0.50 10*3/uL 0.33-0.92 EOS x10^3 (test code = 711-2) 0.37 10*3/uL 0.03-0.39 BASO x10^3 (test code = 704-7) 0.05 10*3/uL 0.01-0.07 Lab Interpretation (test code = 53434-2) [facility] 08:49:55* Test Item Value Reference Range Interpretation Comme nts APPEARANCE (test code = 4377915905) Cloudy Clear A COLOR (test code = 7958166122) Yellow Yellow PH (test code = 6194316284) 4.8-8.0 SP GRAVITY (test code = 1765146985) 1.003-1.030 GLU U QUAL (test code = 9805735289) Normal Normal BLOOD (test code = 8138996524) Negative Negative KETONES (test code = 5067847366) Negative Negative PROTEIN (test code = 2887-8) Negative Negative UROBILIN (test code = 5498067290) Normal Normal BILIRUBIN (test code = 9613175941) 2 mg/dL Negative A NITRITE (test code = 6125246813) Negative Negative LEUK MARC (test code = 0725499911) 75/uL Negative A RBC/HPF (test code = 6286644292) See_Comment H [Automated [employer] ge] The system which generated this result transmitted reference range: 0 - 3 HPF. The reference range was not used to interpret this result as normal/abnormal. WBC/HPF (test code = 2865216578) See_Comment H [Automated messa ge] The system which generated this result transmitted reference range: 0 - 5 HPF. The reference range was not used to interpret this result as normal/abnormal. BACTERIA (test code = 6161050600) Moderate Negative A MUCOUS (test code = 1371407075) Slight Negative LPF A SQ EPITH (test code = 8986092031) HPF YEAST BUD (test code = 8701296970) See_Comment H [Automated messa ge] The system which generated this result transmitted reference range: <=1 HPF. The reference range was not used to interpret this result as normal/abnormal. Ictotest (test code = 2063101765) Negative Lab Interpretation (test code = 92266-2) Abnormal [facility]. METABOLIC PANEL (80903)2021-01-12 08:49:44* Test Item Value Reference Range Interpretation Comme nts NA (test code = 7124444462) 137 mmol/L 135-145 K (test code = 9004266257) 4.6 mmol/L 3.5-5.0 CL (test code = 0375139698) 108 mmol/L 98-108 CO2 TOTAL (test code = 0855981836) 21 mmol/L 23-31 L AGAP (test code = 8252476736) 2-16 BUN (test code = 9140858031) 19 mg/dL 7-23 GLUCOSE (test code = 2086262744) 107 mg/dL 70-110 CREATININE (test code = 0797525500) 0.63 mg/dL 0.50-1.04 TOTAL BILI (test code = 6748977380) 0.4 mg/dL 0.1-1.1 CALCIUM (test code = 5922024598) 9.2 mg/dL 8.6-10.6 T PROTEIN (test code = 3450720385) 7.4 g/dL 6.3-8.2 ALBUMIN (test code = 1872563841) 4.2 g/dL 3.5-5.0 ALK PHOS (test code = 9112619088) 179 U/L 34-122 H ALTv (test code = 1742-6) 113 U/L 5-35 H AST(SGOT) (test code = 5419175344) 38 U/L 13-40 eGFR (test code = 9473333170) mL/min/1.73m2 DARWIN (test code = DARWIN) Association [...] imaging tests). Lab Interpretation (test code = 15358-6) Abnormal [facility] WITH [id number] 08:11:02* Test Item Value Reference Range Interpretation Comme nts WBC (test code = 6690-2) See_Comment H [Automated [employer]] The system which generated this result transmitted reference range: 4.30 - 11.10 10*3/?L. The reference range was not used to interpret this result as normal/abnormal. RBC (test code = 789-8) See_Comment [Automated [employer]] The system which generated this result transmitted [...] 33.3 g/dL 31.6-35.1 RDW-SD (test code = 55581-6) 41.6 fL 39.0-49.9 RDW-CV (test code = 788-0) 14.0 % 12.0-15.5 PLT (test code = 777-3) See_Comment [Automated messa ge] The system which generated this result transmitted reference range: 166 - 358 10*3/?L. The reference range was not used to interpret this result as normal/abnormal. MPV (test code = 49767-9) 9.5 fL 9.5-12.9 NRBC/100 WBC (test code = 2366553104) See_Comment [Automated [employer] ssage] The system which generated this result transmitted reference range: 0.0 - 10.0 /100 WBCs. The reference range was not used to interpret this result as normal/abnormal. NRBC x10^3 (test code = 5029244428) <0.01 See_Comment [Automated [employer] ge] The system which generated this result transmitted reference range: 10*3/?L. The reference range was not used to interpret this result as normal/abnormal. GRAN MAT (NEUT) % (test code = 770-8) 68.0 % IMM GRAN % (test code = 6080478897) 0.80 % LYMPH % (test code = 736-9) 23.6 % MONO % (test code = 5905-5) 5.1 % EOS % (test code = 713-8) 2.1 % BASO % (test code = 706-2) 0.4 % GRAN MAT x10^3(ANC) (test code = 0296693524) 8.86 10*3/uL 1.88-7.09 H IMM GRAN x10^3 (test code = 9035248758) 0.11 10*3/uL 0.00-0.06 H LYMPH x10^3 (test code = 731-0) 3.07 10*3/uL 1.32-3.29 MONO x10^3 (test code = 742-7) 0.66 10*3/uL 0.33-0.92 EOS x10^3 (test code = 711-2) 0.27 10*3/uL 0.03-0.39 BASO x10^3 (test code = 704-7) 0.05 10*3/uL 0.01-0.07 Lab Interpretation (test code = 22142-9) [facility]normal [facility]PO[facility] [id number] 08:02:00* Test Item Value Reference Range Interpretation Comme nts POCT PREG (test code = 1605) negative On board controls acceptable with C Line (test code = 3574) positive POCT PREG LOT # (test code = 3575) [id number] POCT PREG TEST DATE ( test code = 3576) 07/07/2022 Lab Interpretation (test cod e = 05905-2) Normal [facility] DallasTROPONIN [id number] 01:55:05* Test Item Value Reference Range Interpretation Comme nts TROPONIN I (test code = 2253324555) 0.000 ng/mL See_Comment [Automated message] The system [...] biotin. ? Lab Interpretation (test code = 95009-3) Normal [facility] DallasChes 1 Smxx2870-99-33 23:41:46No radiographic evidence of an acute cardiopulmonary process. RL: 2109AFC: 43672 EXAM: XR CHEST 1 VW ORDERING PROVIDER: [...] evidence of an acute cardiopulmonary process.RL: 2109AFC: 36516 [facility] [id number] 23:07:21* Test Item Value Reference Range Interpretation Comme nts TROPONIN I (test code = 5340692236) 0.000 ng/mL See_Comment [Automated message] The system [...] biotin. ? Lab Interpretation (test code = 93135-0) Normal [facility] DallasN-TERMINAL MUD-[id number] 23:04:20* Test Item Value Reference Range Interpretation Comme nts NT-proBNP (test code = 5679653404) 14 pg/mL See_Comment [Automated message] The system which generated this result transmitted reference range: <=125. The reference range was not used to interpret this result as normal/abnormal. DARWIN (test code = DARWIN) Biotin has been reported to cause a negative bias, interpret results relative to patient's use of biotin. Lab Interpretation (test code = 79030-8) Normal [facility] DallasHepatic Function Panel (ALB, T.PRO, BILI T, BU/BC, ALT, AST, ALK PHOS)2020-12-10 22:58:16* Test Item Value Reference Range Interpretation Comme nts TOTAL BILI (test code = 0473147394) 0.5 mg/dL 0.1-1.1 BILI UNCON (test code = 3921954545) 0.3 mg/dL 0.1-1.1 BILI CONJ (test code = 3660419926) 0.0 mg/dL 0.0-0.3 T PROTEIN (test code = 9974218661) 8.1 g/dL 6.3-8.2 ALBUMIN (test code = 1499675495) 4.7 g/dL 3.5-5.0 ALK PHOS (test code = 6933565407) 104 U/L 34-122 ALTv (test code = 1742-6) 18 U/L 5-35 AST(SGOT) (test code = 8121323707) 23 U/L 13-40 Lab Interpretation (test cod e = 22921-7) Normal [facility] Metabolic Panel (NA, K, CL, CO2, GLUCOSE, BUN, CREATININE, CA)2020-12-10 22:57:56* Test Item Value Reference Range Interpretation Comme nts NA (test code = 4347353613) 135 mmol/L 135-145 K (test code = 0295600000) 3.7 mmol/L 3.5-5.0 CL (test code = 1131839824) 105 mmol/L 98-108 CO2 TOTAL (test code = 1461385687) 18 mmol/L 23-31 L AGAP (test code = 9681393509) 2-16 BUN (test code = 3376279543) 14 mg/dL 7-23 GLUCOSE (test code = 1415752209) 108 mg/dL 70-110 CREATININE (test code = 5365002228) 0.56 mg/dL 0.50-1.04 CALCIUM (test code = 2799715700) 9.8 mg/dL 8.6-10.6 eGFR (test code = 5090184799) mL/min/1.73m2 DARWIN (test code = DARWIN) Association [...] imaging tests). Lab Interpretation (test code = 21763-8) Abnormal [facility] DallasLipase Mhkkv9024-21-76 22:57:56* Test Item Value Reference Range Interpretation Comme nts LIPASE (test code = 6015603214) 122 U/L 0-220 Lab Interpretation (test cod e = 64821-8) Normal [facility] DallasD-QWXKX6835-59-01 22:52:34* Test Item Value Reference Range Interpretation Comments D-DIMER (test code = 8797153004) See_Comment [Automated message] The system which generated [...] a diagnosis. Lab Interpretation (test code = 85892-1) Normal [facility] DallasUrinalysis2021-06-05 22:52:29* Test Item Value Reference Range Interpretation Comme nts APPEARANCE (test code = 6041089734) Hazy Clear A COLOR (test code = 1008067439) Yellow Yellow PH (test code = 4372517772) 4.8-8.0 SP GRAVITY (test code = 0091573967) 1.003-1.030 GLU U QUAL (test code = 7291091984) Normal Normal BLOOD (test code = 9546861971) Negative Negative KETONES (test code = 3306921108) Negative Negative PROTEIN (test code = 2887-8) Negative Negative UROBILIN (test code = 8390063508) Normal Normal BILIRUBIN (test code = 9336660982) 2 mg/dL Negative A NITRITE (test code = 9979998677) Negative Negative LEUK MARC (test code = 9623990806) 25/uL Negative A RBC/HPF (test code = 2768484500) See_Comment [Automated [employer] ge] The system which generated this result transmitted reference range: 0 - 3 HPF. The reference range was not used to interpret this result as normal/abnormal. WBC/HPF (test code = 5742196163) See_Comment [Automated [employer] ge] The system which generated this result transmitted reference range: 0 - 5 HPF. The reference range was not used to interpret this result as normal/abnormal. BACTERIA (test code = 1478018790) Few Negative A MUCOUS (test code = 3702052213) Slight Negative LPF A SQ EPITH (test code = 8514032257) HPF Lab Interpretation (test code = 23198-1) Abnormal [facility] with Smouigjevhju6267-97-88 22:45:56* Test Item Value Reference Range Interpretation [...] 33.5 g/dL 31.6-35.1 RDW-SD (test code = 80387-2) 40.5 fL 39.0-49.9 RDW-CV (test code = 788-0) 13.3 % 12.0-15.5 PLT (test code = 777-3) See_Comment H [Automated message] The system which generated this result transmitted reference range: 166 - 358 10*3/?L. The reference range was not used to interpret this result as normal/abnormal. MPV (test code = 23771-9) 9.2 fL 9.5-12.9 L NRBC/100 WBC (test code = 6950351896) See_Comment [Automated message] The system which generated this result transmitted reference range: 0.0 - 10.0 /100 WBCs. The reference range was not used to interpret this result as normal/abnormal. NRBC x10^3 (test code = 9199280791) <0.01 See_Comment [Automated message] The system which generated this result transmitted reference range: 10*3/?L. The reference range was not used to interpret this result as normal/abnormal. GRAN MAT (NEUT) % (test code = 770-8) 73.4 % IMM GRAN % (test code = 9533510930) 0.50 % LYMPH % (test code = 736-9) 17.5 % MONO % (test code = 5905-5) 6.5 % EOS % (test code = 713-8) 1.6 % BASO % (test code = 706-2) 0.5 % GRAN MAT x10^3(ANC) (test code = 4131211199) 10.21 10*3/uL 1.88-7.09 H IMM GRAN x10^3 (test code = 9198815732) 0.07 10*3/uL 0.00-0.06 H LYMPH x10^3 (test code = 731-0) 2.44 10*3/uL 1.32-3.29 MONO x10^3 (test code = 742-7) 0.90 10*3/uL 0.33-0.92 EOS x10^3 (test code = 711-2) 0.22 10*3/uL 0.03-0.39 BASO x10^3 (test code = 704-7) 0.07 10*3/uL 0.01-0.07 Lab Interpretation (test code = 41300-0) Abnormal [facility] Tyry8105-95-91 22:32:00* Test Item Value Reference Range Interpretation Comme nts POCT PREG (test code = 1605) negative On board controls acceptable with C Line (test code = 3574) present POCT PREG LOT # (test code = 3575) [id number] POCT PREG TEST DATE ( test code = 3576) 06/06/2022 Lab Interpretation (test cod e = 51760-6) Normal [facility] DallasUrinalysis2021-05-30 21:34:43* Test Item Value Reference Range Interpretation Comme nts APPEARANCE (test code = 2293738872) Clear Clear COLOR (test code = 5102090656) Yellow Yellow PH (test code = 0796905809) 4.8-8.0 SP GRAVITY (test code = 4459239949) 1.003-1.030 GLU U QUAL (test code = 3611831674) Normal Normal BLOOD (test code = 7784196785) Negative Negative KETONES (test code = 3755233408) Negative Negative PROTEIN (test code = 2887-8) Negative Negative UROBILIN (test code = 9971080082) Normal Normal BILIRUBIN (test code = 6663397399) Negative Negative NITRITE (test code = 6725056286) Negative Negative LEUK MARC (test code = 9197055755) Negative Negative RBC/HPF (test code = 0884213385) See_Comment [Automated [employer]] The system which generated this result transmitted reference range: 0 - 3 HPF. The reference range was not used to interpret this result as normal/abnormal. WBC/HPF (test code = 5442827316) <1 See_Comment [Automated [employer] ge] The system which generated this result transmitted reference range: 0 - 5 HPF. The reference range was not used to interpret this result as normal/abnormal. BACTERIA (test code = 7588466160) Negative Negative MUCOUS (test code = 1237717564) Slight Negative LPF A SQ EPITH (test code = 3670895553) HPF Lab Interpretation (test code = 13355-7) Abnormal [facility] Ocyo7491-66-07 21:18:00* Test Item Value Reference Range Interpretation Comme nts POCT PREG (test code = 1605) negative On board controls acceptable with C Line (test code = 3574) present POCT PREG LOT # (test code = 3575) [id number] POCT PREG TEST DATE ( test code = 3576) 06/06/2022 Lab Interpretation (test cod e = 13439-6) Normal [facility] DallasXR ANKLE 3+ VW TBLU1370-40-09 21:11:00No acute bony abnormality. Preliminary Report Dictated [...] reviewed this study and agree with the abovereport.[facility] DallasTroponin W4094-79-24 20:59:44* Test Item Value Reference Range Interpretation Comme nts TROPONIN I (test code = 3377114632) 0.000 ng/mL See_Comment [Automated message] The system [...] biotin. ? Lab Interpretation (test code = 16504-7) Normal [facility] DallasLipase Xqhoq9615-42-61 20:48:20* Test Item Value Reference Range Interpretation Comme nts LIPASE (test code = 8854181159) 96 U/L 0-220 Lab Interpretation (test cod e = 65484-1) Normal [facility] DallasBasic Metabolic Panel (NA, K, CL, CO2, GLUCOSE, BUN, CREATININE, CA)2020-12-04 20:48:20* Test Item Value Reference Range Interpretation Comme nts NA (test code = 3971670295) 138 mmol/L 135-145 K (test code = 2095882615) 3.8 mmol/L 3.5-5.0 CL (test code = 8084707507) 108 mmol/L 98-108 CO2 TOTAL (test code = 3390809461) 21 mmol/L 23-31 L AGAP (test code = 7888002101) 2-16 BUN (test code = 4244030002) 13 mg/dL 7-23 GLUCOSE (test code = 1079337687) 107 mg/dL 70-110 CREATININE (test code = 9512518754) 0.66 mg/dL 0.50-1.04 CALCIUM (test code = 1381299965) 9.3 mg/dL 8.6-10.6 eGFR (test code = 8249919626) mL/min/1.73m2 DARWIN (test code = DARWIN) Association [...] imaging tests). Lab Interpretation (test code = 54529-4) [facility]normal [facility] DallasHepatic Function [facility] (ALB, T.PRO, BILI T, BU/BC, ALT, AST, ALK PHOS)2020-12-04 20:48:20* Test Item Value Reference Range Interpretation Comme nts TOTAL BILI (test code = 6318461843) 0.3 mg/dL 0.1-1.1 BILI UNCON (test code = 8369463719) 0.1 mg/dL 0.1-1.1 BILI CONJ (test code = 2247010780) 0.0 mg/dL 0.0-0.3 T PROTEIN (test code = 6554899980) 7.0 g/dL 6.3-8.2 ALBUMIN (test code = 5460814811) 4.0 g/dL 3.5-5.0 ALK PHOS (test code = 6229256454) 114 U/L 34-122 ALTv (test code = 1742-6) 30 U/L 5-35 AST(SGOT) (test code = 6049129508) 23 U/L 13-40 Lab Interpretation (test cod e = 98063-6) Normal [facility] with Jscqfgistwgz3217-84-67 20:35:01* Test Item Value Reference Range Interpretation Comme nts WBC (test code = 6690-2) See_Comment [Automated [employer]] The system which generated this result transmitted reference range: 4.30 - 11.10 10*3/?L. The reference range was not used to interpret this result as normal/abnormal. RBC (test code = 789-8) See_Comment [Automated [employer] ge] The system which generated this result [...] 34.0 g/dL 31.6-35.1 RDW-SD (test code = 08789-7) 39.8 fL 39.0-49.9 RDW-CV (test code = 788-0) 12.9 % 12.0-15.5 PLT (test code = 777-3) See_Comment [Automated messa ge] The system which generated this result transmitted reference range: 166 - 358 10*3/?L. The reference range was not used to interpret this result as normal/abnormal. MPV (test code = 14673-5) 9.3 fL 9.5-12.9 L NRBC/100 WBC (test code = 5253273121) See_Comment [Automated [employer] ssage] The system which generated this result transmitted reference range: 0.0 - 10.0 /100 WBCs. The reference range was not used to interpret this result as normal/abnormal. NRBC x10^3 (test code = 4316798019) <0.01 See_Comment [Automated messa ge] The system which generated this result transmitted reference range: 10*3/?L. The reference range was not used to interpret this result as normal/abnormal. GRAN MAT (NEUT) % (test code = 770-8) 71.5 % IMM GRAN % (test code = 9782429364) 0.30 % LYMPH % (test code = 736-9) 19.8 % MONO % (test code = 5905-5) 6.2 % EOS % (test code = 713-8) 1.8 % BASO % (test code = 706-2) 0.4 % GRAN MAT x10^3(ANC) (test code = 4154828587) 6.79 10*3/uL 1.88-7.09 IMM GRAN x10^3 (test code = 6279235740) 0.03 10*3/uL 0.00-0.06 LYMPH x10^3 (test code = 731-0) 1.88 10*3/uL 1.32-3.29 MONO x10^3 (test code = 742-7) 0.59 10*3/uL 0.33-0.92 EOS x10^3 (test code = 711-2) 0.17 10*3/uL 0.03-0.39 BASO x10^3 (test code = 704-7) 0.04 10*3/uL 0.01-0.07 Lab Interpretation (test code = 73517-3) [facility]normal [facility] DallasDR[facility]CRE[facility] (URINE)2020-11-04 02:54:38* Test Item Value Reference Range Interpretation Comme nts AMPHET (test code = 0643626231) Negative Negative Cocaine Metabolite (test code = 2123925212) Negative Negative OPIATES (test code = 6660349207) Presumptive Positive Negative A THC (test code = 3385669088) Negative Negative DARWIN (test code = DARWIN) Urine Drug Cutoff Ranges Amphetamine: ? 1,000 ng/mLCocaine: ? 150 ng/mLOpiates: ? 300 ng/mLCannabinoids: ?50 ng/mL The results are to be used only for medical (i.e., treatment) purposes. Unconfirmed screening results must not be used for non-medical purposes (e.g., employment testing, legal testing). Lab Interpretation (test code = 54191-9) Abnormal [facility] DallasTROPONIN [id number] 02:51:11* Test Item Value Reference Range Interpretation Comme nts TROPONIN I (test code = 3280154825) 0.001 ng/mL See_Comment [Automated message] The system [...] biotin. ? Lab Interpretation (test code = 23519-4) Normal [facility] DallasaPTT2021-04-30 02:41:10* Test Item Value Reference Range Interpretation Comme nts APTT Patient (test code = 3173-2) See_Comment [Automated message] The system which generated this result transmitted reference range: 23 - 38 Seconds. The reference range was not used to interpret this result as normal/abnormal. DARWIN (test code = DARWIN) The [facility] patient population mean normal value for aPTT is 30 seconds. Lab Interpretation (test code = 36867-3) Normal [facility] DallasURINALYSIS2021-04-30 02:40:40* Test Item Value Reference Range Interpretation Comme nts APPEARANCE (test code = 4952657771) Clear Clear COLOR (test code = 8276745053) Yellow Yellow PH (test code = 0516117009) 4.8-8.0 SP GRAVITY (test code = 9969902127) 1.003-1.030 GLU U QUAL (test code = 7897560134) Normal Normal BLOOD (test code = 7683436041) Negative Negative KETONES (test code = 3604224110) Negative Negative PROTEIN (test code = 2887-8) Negative Negative UROBILIN (test code = 2301991118) Normal Normal BILIRUBIN (test code = 9698453048) Negative Negative NITRITE (test code = 2590910964) Negative Negative LEUK MARC (test code = 0864665247) Negative Negative RBC/HPF (test code = 1304999476) <1 See_Comment [Automated messa ge] The system which generated this result transmitted reference range: 0 - 3 HPF. The reference range was not used to interpret this result as normal/abnormal. WBC/HPF (test code = 8869132300) <1 See_Comment [Automated messa ge] The system which generated this result transmitted reference range: 0 - 5 HPF. The reference range was not used to interpret this result as normal/abnormal. BACTERIA (test code = 9649240824) Negative Negative MUCOUS (test code = 9235232900) Slight Negative LPF A SQ EPITH (test code = 3909025901) HPF Lab Interpretation (test code = 06656-1) Abnormal [facility]. METABOLIC PANEL (71065)2020-11-04 02:40:09* Test Item Value Reference Range Interpretation Comme nts NA (test code = 4443210493) 141 mmol/L 135-145 K (test code = 4412108462) 4.1 mmol/L 3.5-5.0 CL (test code = 4494695338) 110 mmol/L 98-108 H CO2 TOTAL (test code = 9742536282) 22 mmol/L 23-31 L AGAP (test code = 7565328692) 2-16 BUN (test code = 5595637750) 15 mg/dL 7-23 GLUCOSE (test code = 2126452712) 115 mg/dL 70-110 H CREATININE (test code = 7281372713) 0.69 mg/dL 0.50-1.04 TOTAL BILI (test code = 0311031829) 0.2 mg/dL 0.1-1.1 CALCIUM (test code = 6863668854) 9.2 mg/dL 8.6-10.6 T PROTEIN (test code = 5618546475) 6.8 g/dL 6.3-8.2 ALBUMIN (test code = 2201872087) 4.1 g/dL 3.5-5.0 ALK PHOS (test code = 7661739617) 69 U/L 34-122 ALTv (test code = 1742-6) 20 U/L 5-35 AST(SGOT) (test code = 5466087031) 23 U/L 13-40 eGFR (test code = 3842715533) mL/min/1.73m2 DARWIN (test code = DARWIN) Association [...] imaging tests). Lab Interpretation (test code = 99023-9) [facility]normal [facility] DallasLIPASE, BGWDA0427-34-96 02:39:49* Test Item Value Reference Range Interpretation Comme nts LIPASE (test code = 6595984961) 117 U/L 0-220 Lab Interpretation (test cod e = 34191-1) Normal [facility] DallasPROTHROMBIN TIME / [id number] 02:39:08* Test Item Value Reference Range Interpretation Comme nts PROTIME PATIENT (test code = 5964-2) See_Comment [Automated [employer] ge] The system which generated this result transmitted reference range: 12.0 - 14.7 Seconds. The reference range was not used to interpret this result as normal/abnormal. INR (test code = 6301-6) Normal INR <1.1; Warfarin Therapeutic range 2.0 to 3.0 or 2.5 to 3.5, depending upon the indications. Lab Interpretation (test code = 96328-3) Normal [facility] DallasCBC WITH QJDY9992-28-32 02:30:11* Test Item Value Reference Range Interpretation [...] 32.8 g/dL 31.6-35.1 RDW-SD (test code = 24728-3) 44.1 fL 39.0-49.9 RDW-CV (test code = 788-0) 13.8 % 12.0-15.5 PLT (test code = 777-3) See_Comment [Automated [employer] ge] The system which generated this result transmitted reference range: 166 - 358 10*3/?L. The reference range was not used to interpret this result as normal/abnormal. MPV (test code = 86517-5) 9.6 fL 9.5-12.9 NRBC/100 WBC (test code = 5647219350) See_Comment [Automated RawFlow ssage] The system which generated this result transmitted reference range: 0.0 - 10.0 /100 WBCs. The reference range was not used to interpret this result as normal/abnormal. NRBC x10^3 (test code = 9660138506) <0.01 See_Comment [Automated [employer] ge] The system which generated this result transmitted reference range: 10*3/?L. The reference range was not used to interpret this result as normal/abnormal. GRAN MAT (NEUT) % (test code = 770-8) 65.9 % IMM GRAN % (test code = 2876502311) 0.70 % LYMPH % (test code = 736-9) 25.9 % MONO % (test code = 5905-5) 5.1 % EOS % (test code = 713-8) 2.0 % BASO % (test code = 706-2) 0.4 % GRAN MAT x10^3(ANC) (test code = 7573903849) 8.82 10*3/uL 1.88-7.09 H IMM GRAN x10^3 (test code = 3452974467) 0.09 10*3/uL 0.00-0.06 H LYMPH x10^3 (test code = 731-0) 3.46 10*3/uL 1.32-3.29 H MONO x10^3 (test code = 742-7) 0.68 10*3/uL 0.33-0.92 EOS x10^3 (test code = 711-2) 0.27 10*3/uL 0.03-0.39 BASO x10^3 (test code = 704-7) 0.05 10*3/uL 0.01-0.07 Lab Interpretation (test code = 08148-0) [facility]2020-09-17 16:56:05* Test Item Value Reference Range Interpretation Comme nts SARS-CoV-2 Rapid ID NOW (test code = 91039-7) Not Detected Not Detected DARWIN (test code = DARWIN) ID NOW COVID-19 As say is an isothermal nucleic acid amplification test intended for the qualitative detection of nucleic acid from SARS-CoV-2 viral RNA in nasopharyngeal (CIAIO COUNTER MOLDER) specimens. It is used under Emergency Use [...] clinically indicated. Lab Interpretation (test code = 54653-9) [facility] [id number] 16:54:09* Test Item Value Reference Range Interpretation Comme nts Streptococcus pyogenes (grou p A) antigen (test code = 56511-2) Negative Negative Lab Interpretation (test cod e = 30399-1) Normal [facility]+ VW [id number] 07:29:48 Impression: No acute fracture or dislocation. RL: 2824AFC: 61227 End of Report Exam: Left Hand, 09/07/2020 [...] swelling.IMPRESSIONImpression: No acute fracture or dislocation.RL: 2824AFC: 66731Egl of Report [facility] FOREARM 2 VW [id number] 07:28:55No acute abnormality of the left forearm. RL: 6200AFC: 10367 Patient name: CHARITY MONROYOB: 1980 40 years [...] acute abnormality of the left forearm.RL: 6200AFC: 49088 [facility]inalysis2021-02-21 09:06:00* Test Item Value Reference Range Interpretation Comme nts APPEARANCE (test code = 1376668776) Hazy Clear A COLOR (test code = 5684539799) Yellow Yellow PH (test code = 4526721761) 4.8-8.0 SP GRAVITY (test code = 4139642473) 1.003-1.030 GLU U QUAL (test code = 8834787216) Normal Normal BLOOD (test code = 9265595565) Negative Negative KETONES (test code = 5379705890) Negative Negative PROTEIN (test code = 2887-8) Negative Negative UROBILIN (test code = 3559692800) Normal Normal BILIRUBIN (test code = 8956385216) Negative Negative NITRITE (test code = 2907036361) Negative Negative LEUK MARC (test code = 5214512585) Negative Negative RBC/HPF (test code = 8094657868) See_Comment [Automated messa ge] The system which generated this result transmitted reference range: 0 - 3 HPF. The reference range was not used to interpret this result as normal/abnormal. WBC/HPF (test code = 4667065363) <1 See_Comment [Automated messa ge] The system which generated this result transmitted reference range: 0 - 5 HPF. The reference range was not used to interpret this result as normal/abnormal. BACTERIA (test code = 8290972353) Moderate Negative A SQ EPITH (test code = 5058657122) HPF Lab Interpretation (test code = 00716-7) Abnormal [facility] with Khxkfczmfdir1771-79-21 08:50:00* Test Item Value Reference Range Interpretation [...] 34.0 g/dL 31.6-35.1 RDW-SD (test code = 98173-1) 42.6 fL 39-49.9 RDW-CV (test code = 788-0) 13.6 % 12-15.5 PLT (test code = 777-3) See_Comment H [Automated messa ge] The system which generated this result transmitted reference range: 166 - 358 10*3/?L. The reference range was not used to interpret this result as normal/abnormal. MPV (test code = 37159-0) 9.7 fL 9.5-12.9 NRBC/100 WBC (test code = 9919168237) See_Comment [Automated me ssage] The system which generated this result transmitted reference range: 0.0 - 10.0 /100 WBCs. The reference range was not used to interpret this result as normal/abnormal. NRBC x10^3 (test code = 0066249494) <0.01 See_Comment [Automated messa ge] The system which generated this result transmitted reference range: 10*3/?L. The reference range was not used to interpret this result as normal/abnormal. GRAN MAT (NEUT) % (test code = 770-8) 49.7 % IMM GRAN % (test code = 2982551941) 0.50 % LYMPH % (test code = 736-9) 41.0 % MONO % (test code = 5905-5) 6.5 % EOS % (test code = 713-8) 1.9 % BASO % (test code = 706-2) 0.4 % GRAN MAT x10^3(ANC) (test code = 8607566237) 6.39 10*3/uL 1.88-7.09 IMM GRAN x10^3 (test code = 6243147297) 0.07 10*3/uL 0-0.06 H LYMPH x10^3 (test code = 731-0) 5.27 10*3/uL 1.32-3.29 H MONO x10^3 (test code = 742-7) 0.84 10*3/uL 0.33-0.92 EOS x10^3 (test code = 711-2) 0.24 10*3/uL 0.03-0.39 BASO x10^3 (test code = 704-7) 0.05 10*3/uL 0.01-0.07 Lab Interpretation (test code = 81265-8) Abnormal [facility] [id number] 08:45:00* Test Item Value Reference Range Interpretation Comme nts POCT PREG (test code = 1605) neg On board controls acceptable with C Line (test code = 3574) yes POCT PREG LOT # (test code = 3575) [id number] POCT PREG TEST DATE ( test code = 3576) 04/06/2022 Lab Interpretation (test cod e = 28125-4) Normal [facility] Metabolic Abibz3431-00-19 08:30:00* Test Item Value Reference Range Interpretation Comme nts NA (test code = 6547399261) 137 mmol/L 135-145 K (test code = 0709703081) 3.3 mmol/L 3.5-5 L CL (test code = 7762753369) 102 mmol/L 98-108 CO2 TOTAL (test code = 9097009933) 24 mmol/L 23-31 AGAP (test code = 2916983251) 2-16 BUN (test code = 4682858856) 9 mg/dL 7-23 GLUCOSE (test code = 8671743782) 116 mg/dL 70-110 H CREATININE (test code = 3987014144) 0.48 mg/dL 0.5-1.04 L TOTAL BILI (test code = 0809346756) 0.3 mg/dL 0.1-1.1 CALCIUM (test code = 1753790259) 9.4 mg/dL 8.6-10.6 T PROTEIN (test code = 5283505205) 7.0 g/dL 6.3-8.2 ALBUMIN (test code = 7527730974) 4.3 g/dL 3.5-5 ALK PHOS (test code = 3731281334) 127 U/L 34-122 H ALTv (test code = 1742-6) 87 U/L 5-35 H AST(SGOT) (test code = 9364101882) 34 U/L 13-40 eGFR Calculation (Non-) (test code = 9697845321) mL/min/1.73m2 eGFR Calculation () (test code = 7105164828) mL/min/1.73m2 DARWIN (test code = DARWIN) Association [...] imaging tests). Lab Interpretation (test code = 87021-9) [facility]normal [facility] Dallas[facility], Cwacd5032-37-67 08:30:00* Test Item Value Reference Range Interpretation Comme nts LIPASE (test code = 2683670026) 297 U/L 0-220 H Lab Interpretation (test cod e = 89840-4) Abnormal [facility] DallasURINALYSIS2021-02-07 19:25:00* Test Item Value Reference Range Interpretation Comme nts APPEARANCE (test code = 3831136080) Clear Clear COLOR (test code = 4068430180) Straw Yellow A PH (test code = 9722899748) 4.8-8.0 SP GRAVITY (test code = 1568441503) 1.003-1.030 GLU U QUAL (test code = 0931230840) Normal Normal BLOOD (test code = 6683027947) 1+ Negative A KETONES (test code = 7764268385) Negative Negative PROTEIN (test code = 2887-8) Negative Negative UROBILIN (test code = 3820838812) Normal Normal BILIRUBIN (test code = 8294897298) Negative Negative NITRITE (test code = 3889503318) Negative Negative LEUK MARC (test code = 0202713628) Negative Negative RBC/HPF (test code = 0558074501) See_Comment [Automated [employer] ge] The system which generated this result transmitted reference range: 0 - 3 HPF. The reference range was not used to interpret this result as normal/abnormal. WBC/HPF (test code = 6391451281) <1 See_Comment [Automated messa ge] The system which generated this result transmitted reference range: 0 - 5 HPF. The reference range was not used to interpret this result as normal/abnormal. BACTERIA (test code = 2781353100) Few Negative A MUCOUS (test code = 3383656959) Slight Negative LPF A SQ EPITH (test code = 9398900047) HPF Lab Interpretation (test code = 38982-0) Abnormal [facility] [id number] 19:09:00* Test Item Value Reference Range Interpretation Comme nts TROPONIN I (test code = 5227172805) <0.012 See_Comment [Automated message] The system which [...] biotin. ? Lab Interpretation (test code = 20858-8) Normal [facility] DIKYOX8193-27-12 19:09:00* Test Item Value Reference Range Interpretation Comme nts BENZO U (test code = 6026776489) Presumptive Positive Negative A ROSA U (test code = 3301404368) Negative Negative AMPHET (test code = 7692535037) Negative Negative THC (test code = 5875795143) Negative Negative METHADONE (test code = 4965757767) Negative Negative Meth U (test code = 5536046979) Negative Negative OPIATES (test code = 4100713565) Negative Negative Cocaine Metabolite (test code = 2467255014) Negative Negative PROPOXY (test code = 1949054341) Negative Negative Tric U (test code = 2056901585) Negative Negative PCP (test code = 3601757464) Negative Negative OXYCOD (test code = 0435608058) Negative Negative DARWIN (test code = DARWIN) [...] legal testing). Lab Interpretation (test code = 21233-0) [facility]2020-[facility]-14 19:01:00* Test Item Value Reference Range Interpretation Comme nts NA (test code = 8090234373) 138 mmol/L 135-145 K (test code = 2345868903) 4.5 mmol/L 3.5-5 CL (test code = 8520479166) 106 mmol/L 98-108 CO2 TOTAL (test code = 1811810928) 21 mmol/L 23-31 L AGAP (test code = 4991579952) 2-16 BUN (test code = 0570406675) 13 mg/dL 7-23 GLUCOSE (test code = 9954027128) 97 mg/dL 70-110 CREATININE (test code = 1486153461) 0.48 mg/dL 0.5-1.04 L TOTAL BILI (test code = 1365437290) 0.4 mg/dL 0.1-1.1 CALCIUM (test code = 4228785325) 9.1 mg/dL 8.6-10.6 T PROTEIN (test code = 8687855751) 7.5 g/dL 6.3-8.2 ALBUMIN (test code = 4546007524) 4.3 g/dL 3.5-5 ALK PHOS (test code = 8232109363) 62 U/L 34-122 ALTv (test code = 1742-6) 19 U/L 5-35 AST(SGOT) (test code = 0426064635) 26 U/L 13-40 eGFR Calculation (Non-) (test code = 7584478444) mL/min/1.73m2 eGFR Calculation () (test code = 1273646060) mL/min/1.73m2 DARWIN (test code = DARWIN) Association [...] imaging tests). Lab Interpretation (test code = 74563-2) [facility]normal [facility]2021-[facility]-07 19:01:00* Test Item Value Reference Range Interpretation Comme nts LIPASE (test code = 6421791578) 76 U/L 0-220 Lab Interpretation (test cod e = 84525-0) Normal [facility] WITH [id number] 18:47:00* Test Item Value Reference Range Interpretation Comme nts WBC (test code = 6690-2) See_Comment H [Automated [employer] Machine] The system which generated this result transmitted reference range: 4.30 - 11.10 10*3/?L. The reference range was not used to interpret this result as normal/abnormal. RBC (test code = 789-8) See_Comment [Automated [employer] Machine] The system which generated this result transmitted [...] 34.3 g/dL 31.6-35.1 RDW-SD (test code = 67790-8) 42.0 fL 39-49.9 RDW-CV (test code = 788-0) 13.4 % 12-15.5 PLT (test code = 777-3) See_Comment [Automated messa ge] The system which generated this result transmitted reference range: 166 - 358 10*3/?L. The reference range was not used to interpret this result as normal/abnormal. MPV (test code = 30708-0) 9.9 fL 9.5-12.9 NRBC/100 WBC (test code = 7344936007) See_Comment [Automated RawFlow ssage] The system which generated this result transmitted reference range: 0.0 - 10.0 /100 WBCs. The reference range was not used to interpret this result as normal/abnormal. NRBC x10^3 (test code = 3290736052) <0.01 See_Comment [Automated messa ge] The system which generated this result transmitted reference range: 10*3/?L. The reference range was not used to interpret this result as normal/abnormal. GRAN MAT (NEUT) % (test code = 770-8) 60.1 % IMM GRAN % (test code = 8391524508) 0.40 % LYMPH % (test code = 736-9) 31.3 % MONO % (test code = 5905-5) 6.0 % EOS % (test code = 713-8) 1.9 % BASO % (test code = 706-2) 0.3 % GRAN MAT x10^3(ANC) (test code = 3877735978) 6.96 10*3/uL 1.88-7.09 IMM GRAN x10^3 (test code = 6495103077) 0.05 10*3/uL 0-0.06 LYMPH x10^3 (test code = 731-0) 3.62 10*3/uL 1.32-3.29 H MONO x10^3 (test code = 742-7) 0.69 10*3/uL 0.33-0.92 EOS x10^3 (test code = 711-2) 0.22 10*3/uL 0.03-0.39 BASO x10^3 (test code = 704-7) 0.04 10*3/uL 0.01-0.07 Lab Interpretation (test code = 23126-3) [facility]normal [facility] CHEST 1 [id number] 18:17:08No acute cardiopulmonary abnormality. Preliminary Report Dictated [...] reviewed this study and agree with theabove report.[facility] DallasLactic Acid Whole Xwjcp7306-98-94 18:11:00* Test Item Value Reference Range Interpretation Comme nts LACTIC ACID (test code = 0661149714) 1.95 mmol/L 0.5-2.2 Lab Interpretation (test cod e = 82728-9) Normal [facility] DallasCT ABDOMEN PELVIS WO UMRBHFBB1243-02-99 05:45:24No acute abdominopelvic abnormality. No urolithiasis. 2.5 [...] reviewed this study and agree with the abovereport.[facility] DallasPONH GUNA3735-31-53 03:10:00* Test Item Value Reference Range Interpretation Comme nts POCT PREG (test code = 1605) Negative On board controls acceptable with C Line (test code = 3574) Present POCT PREG LOT # (test code = 3575) [id number] POCT PREG TEST DATE ( test code = 3576) 03/07/2022 Lab Interpretation (test cod e = 17899-3) Normal [facility] with Fbrbgnlugdvw1529-32-32 03:05:00* Test Item Value Reference Range Interpretation [...] 34.7 g/dL 31.6-35.1 RDW-SD (test code = 56729-3) 42.0 fL 39-49.9 RDW-CV (test code = 788-0) 13.5 % 12-15.5 PLT (test code = 777-3) See_Comment [Automated message] The system which generated this result transmitted reference range: 166 - 358 10*3/?L. The reference range was not used to interpret this result as normal/abnormal. MPV (test code = 14422-9) 9.8 fL 9.5-12.9 NRBC/100 WBC (test code = 6505201835) See_Comment [Automated message] The system which generated this result transmitted reference range: 0.0 - 10.0 /100 WBCs. The reference range was not used to interpret this result as normal/abnormal. NRBC x10^3 (test code = 7351283746) <0.01 See_Comment [Automated message] The system which generated this result transmitted reference range: 10*3/?L. The reference range was not used to interpret this result as normal/abnormal. GRAN MAT (NEUT) % (test code = 770-8) 66.2 % IMM GRAN % (test code = 5024306760) 0.60 % LYMPH % (test code = 736-9) 25.4 % MONO % (test code = 5905-5) 5.6 % EOS % (test code = 713-8) 1.9 % BASO % (test code = 706-2) 0.3 % GRAN MAT x10^3(ANC) (test code = 8121755519) 10.64 10*3/uL 1.88-7.09 H IMM GRAN x10^3 (test code = 4753369939) 0.09 10*3/uL 0-0.06 H LYMPH x10^3 (test code = 731-0) 4.09 10*3/uL 1.32-3.29 H MONO x10^3 (test code = 742-7) 0.90 10*3/uL 0.33-0.92 EOS x10^3 (test code = 711-2) 0.31 10*3/uL 0.03-0.39 BASO x10^3 (test code = 704-7) 0.05 10*3/uL 0.01-0.07 Lab Interpretation (test code = 04945-1) [facility]normal [facility] DallasUrinalysis2021-02-04 02:56:00* Test Item Value Reference Range Interpretation Comme nts APPEARANCE (test code = 2784579574) Hazy Clear A COLOR (test code = 5358796377) Yellow Yellow PH (test code = 8841319403) 4.8-8.0 SP GRAVITY (test code = 7136610351) 1.003-1.030 GLU U QUAL (test code = 9518865183) Normal Normal BLOOD (test code = 3126056339) Negative Negative KETONES (test code = 1250591804) Negative Negative PROTEIN (test code = 2887-8) Negative Negative UROBILIN (test code = 6771961696) Normal Normal BILIRUBIN (test code = 0121183522) Negative Negative NITRITE (test code = 6886437275) Negative Negative LEUK MARC (test code = 1398180784) Negative Negative RBC/HPF (test code = 0688386552) See_Comment [Automated [employer] ge] The system which generated this result transmitted reference range: 0 - 3 HPF. The reference range was not used to interpret this result as normal/abnormal. WBC/HPF (test code = 2523634751) See_Comment [Automated [employer] ge] The system which generated this result transmitted reference range: 0 - 5 HPF. The reference range was not used to interpret this result as normal/abnormal. BACTERIA (test code = 9598262955) Few Negative A MUCOUS (test code = 4336658306) Slight Negative LPF A SQ EPITH (test code = 4363020229) HPF YEAST BUD (test code = 2678988210) See_Comment H [Automated [employer] ge] The system which generated this result transmitted reference range: <=1 HPF. The reference range was not used to interpret this result as normal/abnormal. Lab Interpretation (test code = 28074-7) [facility]normal [facility] DallasTroponin [id number] 02:24:00* Test Item Value Reference Range Interpretation Comme nts TROPONIN I (test code = 0052839696) <0.012 See_Comment [Automated message] The system which [...] biotin. ? Lab Interpretation (test code = 91844-7) Normal [facility] (ID NOW RAPID TESTING)2020-08-11 02:15:00* Test Item Value Reference Range Interpretation Comme nts SARS-CoV-2 Rapid ID NOW (test code = 25790-8) Not Detected Not Detected DARWIN (test code = DARWIN) ID NOW COVID-19 As say is an isothermal nucleic acid amplification test intended for the qualitative detection of nucleic acid from SARS-CoV-2 viral RNA in nasopharyngeal (CIAIO COUNTER MOLDER) specimens. It is used under Emergency Use [...] clinically indicated. Lab Interpretation (test code = 96882-5) Normal [facility] Metabolic Panel (NA, K, CL, CO2, GLUCOSE, BUN, CREATININE, CA)2020-08-11 02:13:00* Test Item Value Reference Range Interpretation Comme nts NA (test code = 3248227703) 137 mmol/L 135-145 K (test code = 1102382744) 4.0 mmol/L 3.5-5 CL (test code = 3805533977) 107 mmol/L 98-108 CO2 TOTAL (test code = 1400217610) 19 mmol/L 23-31 L AGAP (test code = 7570173503) 2-16 BUN (test code = 8886550168) 10 mg/dL 7-23 GLUCOSE (test code = 5142726888) 106 mg/dL 70-110 CREATININE (test code = 2678681231) 0.47 mg/dL 0.5-1.04 L CALCIUM (test code = 1488829369) 9.2 mg/dL 8.6-10.6 eGFR Calculation (Non-) (test code = 9126100567) mL/min/1.73m2 eGFR Calculation () (test code = 5099041023) mL/min/1.73m2 DARWIN (test code = DARWIN) Association [...] imaging tests). Lab Interpretation (test code = 06304-7) [facility]normal [facility] DallasHep[facility] Function [facility] (ALB, T.PRO, BILI T, BU/BC, ALT, AST, ALK PHOS)2020-08-11 02:13:00* Test Item Value Reference Range Interpretation Comme nts TOTAL BILI (test code = 8715830186) 0.4 mg/dL 0.1-1.1 BILI UNCON (test code = 5456935976) 0.3 mg/dL 0.1-1.1 BILI CONJ (test code = 9300753700) 0.0 mg/dL 0-0.3 T PROTEIN (test code = 7841263644) 7.5 g/dL 6.3-8.2 ALBUMIN (test code = 6049133618) 4.4 g/dL 3.5-5 ALK PHOS (test code = 8330100665) 48 U/L 34-122 ALTv (test code = 1742-6) 12 U/L 5-35 AST(SGOT) (test code = 5391099599) 22 U/L 13-40 Lab Interpretation (test cod e = 40152-8) Normal [facility] DallasLipase Npzio7876-55-60 02:13:00* Test Item Value Reference Range Interpretation Comme nts LIPASE (test code = 2636689496) 78 U/L 0-220 Lab Interpretation (test cod e = 21327-2) Normal [facility] DallasLactic Acid Whole Vumhj7784-41-72 02:05:00* Test Item Value Reference Range Interpretation Comme nts LACTIC ACID (test code = 0996714822) 1.47 mmol/L 0.5-2.2 Lab Interpretation (test cod e = 40118-4) Normal [facility] FOREARM 2 VW [id number] 14:31:40No acute bony abnormality. Soft tissue swelling. [...] reviewed this study and agree with the abovereport.[facility] (ID NOW RAPID TESTING)2020-08-07 14:18:00* Test Item Value Reference Range Interpretation Comme nts SARS-CoV-2 Rapid ID NOW (test code = 61293-7) Not Detected Not Detected DARWIN (test code = DARWIN) ID NOW COVID-19 As say is an isothermal nucleic acid amplification test intended for the qualitative detection of nucleic acid from SARS-CoV-2 viral RNA in nasopharyngeal (CIAIO COUNTER MOLDER) specimens. It is used under Emergency Use [...] clinically indicated. Lab Interpretation (test code = 87479-0) Normal [facility] DallasTROPONIN [id number] 02:54:00* Test Item Value Reference Range Interpretation Comme nts TROPONIN I (test code = 0647065309) <0.012 See_Comment [Automated message] The system which [...] biotin. ? Lab Interpretation (test code = 83056-4) Normal [facility] DallasLIPASE2020-12-25 02:37:00* Test Item Value Reference Range Interpretation Comme nts LIPASE (test code = 9556192515) 76 U/L 0-220 Lab Interpretation (test cod e = 41684-1) Normal [facility] DallasURINALYSIS2020-12-25 01:54:00* Test Item Value Reference Range Interpretation Comme nts APPEARANCE (test code = 1661441200) Clear Clear COLOR (test code = 9918235309) Straw Yellow A PH (test code = 3141967884) 4.8-8.0 SP GRAVITY (test code = 4148049407) 1.003-1.030 GLU U QUAL (test code = 3979019783) Normal Normal BLOOD (test code = 7611775133) 3+ Negative A KETONES (test code = 2927714807) Negative Negative PROTEIN (test code = 2887-8) Negative Negative UROBILIN (test code = 8302013607) Normal Normal BILIRUBIN (test code = 0716088309) Negative Negative NITRITE (test code = 4047581722) Negative Negative LEUK MARC (test code = 9636523322) Negative Negative RBC/HPF (test code = 3481077335) See_Comment [Automated messa ge] The system which generated this result transmitted reference range: 0 - 3 HPF. The reference range was not used to interpret this result as normal/abnormal. WBC/HPF (test code = 7591734588) <1 See_Comment [Automated messa ge] The system which generated this result transmitted reference range: 0 - 5 HPF. The reference range was not used to interpret this result as normal/abnormal. BACTERIA (test code = 2627278511) Few Negative A MUCOUS (test code = 1596198425) Slight Negative LPF A SQ EPITH (test code = 5303251061) HPF Lab Interpretation (test code = 05864-5) Abnormal [facility] WITH [id number] 00:57:00* Test Item Value Reference Range Interpretation [...] 34.0 g/dL 31.6-35.1 RDW-SD (test code = 82751-2) 41.7 fL 39-49.9 RDW-CV (test code = 788-0) 13.2 % 12-15.5 PLT (test code = 777-3) See_Comment [Automated [employer] ge] The system which generated this result transmitted reference range: 166 - 358 10*3/?L. The reference range was not used to interpret this result as normal/abnormal. MPV (test code = 44260-7) 9.4 fL 9.5-12.9 L NRBC/100 WBC (test code = 2565001152) See_Comment [Automated [employer] ssage] The system which generated this result transmitted reference range: 0.0 - 10.0 /100 WBCs. The reference range was not used to interpret this result as normal/abnormal. NRBC x10^3 (test code = 6434933432) <0.01 See_Comment [Automated [employer] ge] The system which generated this result transmitted reference range: 10*3/?L. The reference range was not used to interpret this result as normal/abnormal. GRAN MAT (NEUT) % (test code = 770-8) 51.8 % IMM GRAN % (test code = 0181573380) 0.50 % LYMPH % (test code = 736-9) 40.7 % MONO % (test code = 5905-5) 4.0 % EOS % (test code = 713-8) 2.5 % BASO % (test code = 706-2) 0.5 % GRAN MAT x10^3(ANC) (test code = 4026302271) 5.38 10*3/uL 1.88-7.09 IMM GRAN x10^3 (test code = 1042231983) 0.05 10*3/uL 0-0.06 LYMPH x10^3 (test code = 731-0) 4.22 10*3/uL 1.32-3.29 H MONO x10^3 (test code = 742-7) 0.42 10*3/uL 0.33-0.92 EOS x10^3 (test code = 711-2) 0.26 10*3/uL 0.03-0.39 BASO x10^3 (test code = 704-7) 0.05 10*3/uL 0.01-0.07 Lab Interpretation (test code = 74103-7) [facility]normal [facility] [place] [place] [facility] [place] - INFLUENZA A & B DIRECT [id number] 00:51:00* Test Item Value Reference Range Interpretation Comme nts Influenza A (test code = 37760-0) Negative Negative Influenza B (test code = 64819-8) Negative Negative Lab Interpretation (test cod e = 33599-3) [facility] [id number] 00:51:00* Test Item Value Reference Range Interpretation Comme nts POCT PREG (test code = 1605) negative On board controls acceptable with C Line (test code = 3574) present POCT PREG LOT # (test code = 3575) [id number] POCT PREG TEST DATE ( test code = 3576) 11/04/2021 Lab Interpretation (test cod e = 80363-9) Normal [facility] DallasTROPONIN [id number] 00:46:00* Test Item Value Reference Range Interpretation Comme nts TROPONIN I (test code = 6159760580) <0.012 See_Comment [Automated message] The system which [...] biotin. ? Lab Interpretation (test code = 51604-0) Normal [facility] METABOLIC PANEL (NA, K, CL, CO2, GLUCOSE, BUN, CREATININE, CA)2020-07-01 00:46:00* Test Item Value Reference Range Interpretation Comme nts NA (test code = 7107029810) 141 mmol/L 135-145 K (test code = 6482971108) 3.8 mmol/L 3.5-5 CL (test code = 8167874701) 108 mmol/L 98-108 CO2 TOTAL (test code = 7571667342) 25 mmol/L 23-31 AGAP (test code = 5546843027) 2-16 BUN (test code = 7614098786) 10 mg/dL 7-23 GLUCOSE (test code = 3429113374) 92 mg/dL 70-110 CREATININE (test code = 1741133351) 0.58 mg/dL 0.5-1.04 CALCIUM (test code = 7475565341) 9.4 mg/dL 8.6-10.6 eGFR Calculation (Non-) (test code = 3663938994) mL/min/1.73m2 eGFR Calculation () (test code = 0494629546) mL/min/1.73m2 DARWIN (test code = DARWIN) Association [...] or urine or abnormalities in imaging tests). [facility] DallasN-TERMINAL [id number] 00:43:00* Test Item Value Reference Range Interpretation Comme nts NT-proBNP (test code = 1216378434) 332 pg/mL See_Comment H [Automated message] The system which generated this result transmitted reference range: <=125. The reference range was not used to interpret this result as normal/abnormal. DARWIN (test code = DARWIN) Biotin has been reported to cause a negative bias, interpret results relative to patient's use of biotin. Lab Interpretation (test code = 71888-4) Abnormal [facility] DallasXR CHEST 1 [id number] 00:20:50No acute cardiopulmonary abnormality Preliminary Report Dictated [...] is normal.No acute osseous abnormality is identified. Sdmb, Radiant Results Inft User - 06/30/2020 6:22 [...] reviewed this study and agree with the abovereport.[facility] CERVICAL SPINE WO [id number] 23:23:[address] EXAMINATION: CT [...] lung apices are unremarkable. IMPRESSIONUnremarkable cervical spine CT.[facility] DallasPONH Hwpa9312-16-94 01:50:00* Test Item Value Reference Range Interpretation Comme nts POCT PREG (test code = 1605) Negative On board controls acceptable with C Line (test code = 3574) Present POCT PREG LOT # (test code = 3575) [id number] POCT PREG TEST DATE ( test code = 3576) 10/05/2021 Lab Interpretation (test cod e = 04334-3) Normal [facility] DallasTroponin [id number] 01:24:00* Test Item Value Reference Range Interpretation Comme nts TROPONIN I (test code = 2959194587) <0.012 See_Comment [Automated message] The system which [...] biotin. ? Lab Interpretation (test code = 39025-8) Normal [facility] DallasCOVID-19 (ID NOW RAPID TESTING)2020-06-13 01:22:00* Test Item Value Reference Range Interpretation Comme nts SARS-CoV-2 Rapid ID NOW (test code = 94275-4) Not Detected Not Detected DARWIN (test code = DARWIN) ID NOW COVID-19 As say is an isothermal nucleic acid amplification test intended for the qualitative detection of nucleic acid from SARS-CoV-2 viral RNA in nasopharyngeal (CIAIO COUNTER MOLDER) specimens. It is used under Emergency Use [...] clinically indicated. Lab Interpretation (test code = 42498-7) Normal [facility] DallasD-[id number] 01:16:00* Test Item Value Reference Range Interpretation Comments D-DIMER (test code = 8736691476) See_Comment [Automated message] The system which generated [...] a diagnosis. Lab Interpretation (test code = 55955-1) Normal [facility] DallasBasi Metabolic Panel (NA, K, CL, CO2, GLUCOSE, BUN, CREATININE, CA)2020-06-13 01:13:00* Test Item Value Reference Range Interpretation Comme nts NA (test code = 6114097858) 137 mmol/L 135-145 K (test code = 4270076116) 4.2 mmol/L 3.5-5 CL (test code = 4935358916) 103 mmol/L 98-108 CO2 TOTAL (test code = 2962972787) 25 mmol/L 23-31 AGAP (test code = 2255177478) 2-16 BUN (test code = 9110528861) 11 mg/dL 7-23 GLUCOSE (test code = 7955356215) 98 mg/dL 70-110 CREATININE (test code = 5307800413) 0.52 mg/dL 0.5-1.04 CALCIUM (test code = 3549737214) 10.3 mg/dL 8.6-10.6 eGFR Calculation (Non-) (test code = 0203718716) mL/min/1.73m2 eGFR Calculation () (test code = 3858970129) mL/min/1.73m2 DARWIN (test code = DARWIN) Association [...] or urine or abnormalities in imaging tests). [facility] DallasHepatic Function Panel (ALB, T.PRO, BILI T, BU/BC, ALT, AST, ALK PHOS)2020-06-13 01:13:00* Test Item Value Reference Range Interpretation Comme nts TOTAL BILI (test code = 7177322046) 0.5 mg/dL 0.1-1.1 BILI UNCON (test code = 0233078499) 0.3 mg/dL 0.1-1.1 BILI CONJ (test code = 9535086129) 0.0 mg/dL 0-0.3 T PROTEIN (test code = 4493534539) 7.3 g/dL 6.3-8.2 ALBUMIN (test code = 9253398660) 4.2 g/dL 3.5-5 ALK PHOS (test code = 8836457376) 85 U/L 34-122 ALTv (test code = 1742-6) 66 U/L 5-35 H AST(SGOT) (test code = 8733911272) 32 U/L 13-40 Lab Interpretation (test cod e = 66238-2) Abnormal [facility] DallasLipase [id number] 01:13:00* Test Item Value Reference Range Interpretation Comme nts LIPASE (test code = 9237738647) 60 U/L 0-220 Lab Interpretation (test cod e = 54200-7) Normal [facility] DallasUrinalysis2020-12-07 01:03:00* Test Item Value Reference Range Interpretation Comme nts APPEARANCE (test code = 8912404647) Clear Clear COLOR (test code = 0203985058) Straw Yellow A PH (test code = 6595885571) 4.8-8.0 SP GRAVITY (test code = 7662772593) 1.003-1.030 GLU U QUAL (test code = 4697657682) Normal Normal BLOOD (test code = 8655826464) Negative Negative KETONES (test code = 5316725017) Negative Negative PROTEIN (test code = 2887-8) Negative Negative UROBILIN (test code = 9537672989) Normal Normal BILIRUBIN (test code = 6809215225) Negative Negative NITRITE (test code = 6034965247) Negative Negative LEUK MARC (test code = 3950618747) Negative Negative RBC/HPF (test code = 7132580325) See_Comment [Automated [employer] ge] The system which generated this result transmitted reference range: 0 - 3 HPF. The reference range was not used to interpret this result as normal/abnormal. WBC/HPF (test code = 7692803990) See_Comment [Automated [employer] ge] The system which generated this result transmitted reference range: 0 - 5 HPF. The reference range was not used to interpret this result as normal/abnormal. BACTERIA (test code = 2164591154) Negative Negative MUCOUS (test code = 5077523858) Slight Negative LPF A SQ EPITH (test code = 8723660389) HPF Lab Interpretation (test code = 30200-8) Abnormal [facility] DallasCBC with Evvzdfkvbywq8387-98-75 00:55:00* Test Item Value Reference Range Interpretation [...] 34.5 g/dL 31.6-35.1 RDW-SD (test code = 83918-2) 42.5 fL 39-49.9 RDW-CV (test code = 788-0) 13.5 % 12-15.5 PLT (test code = 777-3) See_Comment [Automated messa ge] The system which generated this result transmitted reference range: 166 - 358 10*3/?L. The reference range was not used to interpret this result as normal/abnormal. MPV (test code = 64014-3) 10.1 fL 9.5-12.9 NRBC/100 WBC (test code = 2681235643) See_Comment [Automated [employer] ssage] The system which generated this result transmitted reference range: 0.0 - 10.0 /100 WBCs. The reference range was not used to interpret this result as normal/abnormal. NRBC x10^3 (test code = 7096329044) <0.01 See_Comment [Automated messa ge] The system which generated this result transmitted reference range: 10*3/?L. The reference range was not used to interpret this result as normal/abnormal. GRAN MAT (NEUT) % (test code = 770-8) 61.9 % IMM GRAN % (test code = 5857641253) 0.60 % LYMPH % (test code = 736-9) 30.6 % MONO % (test code = 5905-5) 5.2 % EOS % (test code = 713-8) 1.4 % BASO % (test code = 706-2) 0.3 % GRAN MAT x10^3(ANC) (test code = 8189541754) 8.03 10*3/uL 1.88-7.09 H IMM GRAN x10^3 (test code = 4845242904) 0.08 10*3/uL 0-0.06 H LYMPH x10^3 (test code = 731-0) 3.97 10*3/uL 1.32-3.29 H MONO x10^3 (test code = 742-7) 0.68 10*3/uL 0.33-0.92 EOS x10^3 (test code = 711-2) 0.18 10*3/uL 0.03-0.39 BASO x10^3 (test code = 704-7) 0.04 10*3/uL 0.01-0.07 Lab Interpretation (test code = 53192-7) Abnormal [facility]COVID[facility] (ID NOW RAPID TESTING)2020-05-17 00:27:00* Test Item Value Reference Range Interpretation Comme nts SARS-CoV-2 Rapid ID NOW (test code = 68281-8) Not Detected Not Detected DARWIN (test code = DARWIN) ID NOW COVID-19 As say is an isothermal nucleic acid amplification test intended for the qualitative detection of nucleic acid from SARS-CoV-2 viral RNA in nasopharyngeal (CIAIO COUNTER MOLDER) specimens. It is used under Emergency Use [...] clinically indicated. Lab Interpretation (test code = 49311-6) Normal [facility] DallasBasi Metabolic Panel (NA, K, CL, CO2, GLUCOSE, BUN, CREATININE, CA)2020-05-17 00:00:00* Test Item Value Reference Range Interpretation Comme nts NA (test code = 7496533161) 136 mmol/L 135-145 K (test code = 5653772172) 3.6 mmol/L 3.5-5 CL (test code = 7769152340) 103 mmol/L 98-108 CO2 TOTAL (test code = 6037610837) 26 mmol/L 23-31 AGAP (test code = 3735708424) 2-16 BUN (test code = 2859496100) 13 mg/dL 7-23 GLUCOSE (test code = 7321036589) 130 mg/dL 70-110 H CREATININE (test code = 5743956892) 0.58 mg/dL 0.5-1.04 CALCIUM (test code = 7587206361) 9.9 mg/dL 8.6-10.6 eGFR Calculation (Non-) (test code = 5895863473) mL/min/1.73m2 eGFR Calculation () (test code = 9793746000) mL/min/1.73m2 DARWIN (test code = DARWIN) Association [...] imaging tests). Lab Interpretation (test code = 54163-1) Abnormal [facility] DallasHepatic Function [facility] (ALB, T.PRO, BILI T, BU/BC, ALT, AST, ALK PHOS)2020-05-17 00:00:00* Test Item Value Reference Range Interpretation Comme nts TOTAL BILI (test code = 2117450913) 0.4 mg/dL 0.1-1.1 BILI UNCON (test code = 2510262969) 0.3 mg/dL 0.1-1.1 BILI CONJ (test code = 3540220954) 0.0 mg/dL 0-0.3 T PROTEIN (test code = 3565354270) 7.3 g/dL 6.3-8.2 ALBUMIN (test code = 5697014502) 4.3 g/dL 3.5-5 ALK PHOS (test code = 9947313529) 118 U/L 34-122 ALTv (test code = 1742-6) 119 U/L 5-35 H AST(SGOT) (test code = 3217563154) 47 U/L 13-40 H Lab Interpretation (test cod e = 24501-8) Abnormal [facility] DallasLipase [id number] 00:00:00* Test Item Value Reference Range Interpretation Comme nts LIPASE (test code = 2562260675) 70 U/L 0-220 Lab Interpretation (test cod e = 47991-1) Normal [facility] DallasCBC with Hsbyodgadyaz3904-23-48 23:49:00* Test Item Value Reference Range Interpretation Comme nts WBC (test code = 6690-2) See_Comment [Automated [employer] Culture Machine] The system which generated this result transmitted reference range: 4.30 - 11.10 10*3/?L. The reference range was not used to interpret this result as normal/abnormal. RBC (test code = 789-8) See_Comment [Automated [employer] Machine] The system which generated this result transmitted [...] 33.3 g/dL 31.6-35.1 RDW-SD (test code = 94819-1) 42.8 fL 39-49.9 RDW-CV (test code = 788-0) 13.5 % 12-15.5 PLT (test code = 777-3) See_Comment [Automated [employer]] The system which generated this result transmitted reference range: 166 - 358 10*3/?L. The reference range was not used to interpret this result as normal/abnormal. MPV (test code = 11477-3) 9.8 fL 9.5-12.9 NRBC/100 WBC (test code = 2222152654) See_Comment [Automated [employer]] The system which generated this result transmitted reference range: 0.0 - 10.0 /100 WBCs. The reference range was not used to interpret this result as normal/abnormal. NRBC x10^3 (test code = 0542352148) <0.01 See_Comment [Automated [employer]] The system which generated this result transmitted reference range: 10*3/?L. The reference range was not used to interpret this result as normal/abnormal. GRAN MAT (NEUT) % (test code = 770-8) 62.5 % IMM GRAN % (test code = 8770117880) 0.50 % LYMPH % (test code = 736-9) 29.8 % MONO % (test code = 5905-5) 5.6 % EOS % (test code = 713-8) 1.1 % BASO % (test code = 706-2) 0.5 % GRAN MAT x10^3(ANC) (test code = 7552701287) 6.65 10*3/uL 1.88-7.09 IMM GRAN x10^3 (test code = 4736635537) 0.05 10*3/uL 0-0.06 LYMPH x10^3 (test code = 731-0) 3.17 10*3/uL 1.32-3.29 MONO x10^3 (test code = 742-7) 0.59 10*3/uL 0.33-0.92 EOS x10^3 (test code = 711-2) 0.12 10*3/uL 0.03-0.39 BASO x10^3 (test code = 704-7) 0.05 10*3/uL 0.01-0.07 [facility] DallasACETAMINOPHEN2020-11-08 08:24:00* Test Item Value Reference Range Interpretation Comme nts ACETAMINOP (test code = 5341695172) 21.0 ug/mL 10-30 DARWIN (test code = DARWIN) Toxic: Greater joan n 200 ug/mL @ 4 hour post ingestion or greater than 50 ug/mL @ 12 hour post ingestion Lab Interpretation (test code = 26783-3) Normal [facility] DallasETHANOL2020-11-08 06:37:00* Test Item Value Reference Range Interpretation Comme nts ALCOHOL (test code = 0429413638) <10 mg/dL DARWIN (test code = DARWIN) <10 Edtorbbz66-428 Toxic>100 Depression of RN HOUSE SUPERVISOR>400 Fatalities Reported [facility] DallasBasi Metabolic Panel (NA, K, CL, CO2, GLUCOSE, BUN, CREATININE, CA)2020-05-15 06:35:00* Test Item Value Reference Range Interpretation Comme nts NA (test code = 7979511789) 137 mmol/L 135-145 K (test code = 3705978819) 4.0 mmol/L 3.5-5 CL (test code = 9617210410) 106 mmol/L 98-108 CO2 TOTAL (test code = 5029613489) 25 mmol/L 23-31 AGAP (test code = 9257696221) 2-16 BUN (test code = 7981175707) 9 mg/dL 7-23 GLUCOSE (test code = 9457920392) 95 mg/dL 70-110 CREATININE (test code = 6704849173) 0.53 mg/dL 0.5-1.04 CALCIUM (test code = 3363511434) 9.0 mg/dL 8.6-10.6 eGFR Calculation (Non-) (test code = 7148551861) mL/min/1.73m2 eGFR Calculation () (test code = 5927512438) mL/min/1.73m2 DARWIN (test code = DARWIN) Association [...] or urine or abnormalities in imaging tests). [facility] DallasHep[facility] Function Panel (ALB, T.PRO, BILI T, BU/BC, ALT, AST, ALK PHOS)2020-05-15 06:35:00* Test Item Value Reference Range Interpretation Comme nts TOTAL BILI (test code = 0377672407) 0.4 mg/dL 0.1-1.1 BILI UNCON (test code = 4784106631) 0.2 mg/dL 0.1-1.1 BILI CONJ (test code = 1452897068) 0.0 mg/dL 0-0.3 T PROTEIN (test code = 4983130726) 6.3 g/dL 6.3-8.2 ALBUMIN (test code = 6923326958) 3.8 g/dL 3.5-5 ALK PHOS (test code = 3897354715) 117 U/L 34-122 ALTv (test code = 1742-6) 179 U/L 5-35 H AST(SGOT) (test code = 4840929752) 194 U/L 13-40 H Lab Interpretation (test cod e = 58322-0) Abnormal [facility] DallasLipase Vlluy7280-63-53 06:35:00* Test Item Value Reference Range Interpretation Comme nts LIPASE (test code = 0527061938) 92 U/L 0-220 Lab Interpretation (test cod e = 77865-9) Normal [facility] DallasaPTT2020-11-08 06:22:00* Test Item Value Reference Range Interpretation Comme nts APTT Patient (test code = 3173-2) See_Comment [Automated message] The system which generated this result transmitted reference range: 23 - 38 Seconds. The reference range was not used to interpret this result as normal/abnormal. DARWIN (test code = DARWIN) The [facility] patient population mean normal value for aPTT is 30 seconds. Lab Interpretation (test code = 22907-6) Normal [facility] DallasUrinalysis2020-11-08 06:21:00* Test Item Value Reference Range Interpretation Comme nts APPEARANCE (test code = 1995875509) Clear Clear COLOR (test code = 9278201576) Yellow Yellow PH (test code = 0902914955) 4.8-8.0 SP GRAVITY (test code = 9714539117) 1.003-1.030 GLU U QUAL (test code = 7677618581) Normal Normal BLOOD (test code = 6381952510) Negative Negative KETONES (test code = 3629546051) Negative Negative PROTEIN (test code = 2887-8) Negative Negative UROBILIN (test code = 5005172966) Normal Normal BILIRUBIN (test code = 3682824453) Negative Negative NITRITE (test code = 0215370589) Negative Negative LEUK MARC (test code = 6341979565) Negative Negative RBC/HPF (test code = 5202399044) See_Comment [Automated messa ge] The system which generated this result transmitted reference range: 0 - 3 HPF. The reference range was not used to interpret this result as normal/abnormal. WBC/HPF (test code = 4524775453) <1 See_Comment [Automated messa ge] The system which generated this result transmitted reference range: 0 - 5 HPF. The reference range was not used to interpret this result as normal/abnormal. BACTERIA (test code = 9739811817) Negative Negative MUCOUS (test code = 6083389428) Slight Negative LPF A SQ EPITH (test code = 5097925514) HPF Lab Interpretation (test code = 38078-2) Abnormal [facility] DallasProthrombin Time (PT) / [id number] 06:20:00 * Test Item Value Reference Range [...] the indications. Lab Interpretation (test code = 07004-2) Normal [facility] - DRUG SCREEN PHSAAS2013-95-68 06:19:00* Test Item Value Reference Range Interpretation Comme nts BENZO U (test code = 4418509484) Presumptive Positive Negative A ROSA U (test code = 0116249635) Negative Negative AMPHET (test code = 4681966349) Negative Negative THC (test code = 9041141635) Negative Negative METHADONE (test code = 8300051136) Negative Negative Meth U (test code = 2816401078) Negative Negative OPIATES (test code = 9811607053) Negative Negative Cocaine Metabolite (test code = 3848072711) Negative Negative PROPOXY (test code = 1376691990) Negative Negative Tric U (test code = 8618373145) Negative Negative PCP (test code = 4369431180) Negative Negative OXYCOD (test code = 7140636556) Negative Negative DARWIN (test code = DARWIN) [...] legal testing). Lab Interpretation (test code = 90045-2) Abnormal [facility] with Akntdznohxfh7914-68-72 06:07:00* Test Item Value Reference Range Interpretation Comme nts WBC (test code = 6690-2) See_Comment [Automated [employer]] The system which generated this result transmitted reference range: 4.30 - 11.10 10*3/?L. The reference range was not used to interpret this result as normal/abnormal. RBC (test code = 789-8) See_Comment [Automated [employer]] The system which generated this result transmitted [...] 34.3 g/dL 31.6-35.1 RDW-SD (test code = 05961-5) 43.4 fL 39-49.9 RDW-CV (test code = 788-0) 13.7 % 12-15.5 PLT (test code = 777-3) See_Comment [Automated messa ge] The system which generated this result transmitted reference range: 166 - 358 10*3/?L. The reference range was not used to interpret this result as normal/abnormal. MPV (test code = 75081-7) 9.7 fL 9.5-12.9 NRBC/100 WBC (test code = 6762295561) See_Comment [Automated me ssage] The system which generated this result transmitted reference range: 0.0 - 10.0 /100 WBCs. The reference range was not used to interpret this result as normal/abnormal. NRBC x10^3 (test code = 5306866510) <0.01 See_Comment [Automated messa ge] The system which generated this result transmitted reference range: 10*3/?L. The reference range was not used to interpret this result as normal/abnormal. GRAN MAT (NEUT) % (test code = 770-8) 50.6 % IMM GRAN % (test code = 9911692736) 0.20 % LYMPH % (test code = 736-9) 42.1 % MONO % (test code = 5905-5) 5.5 % EOS % (test code = 713-8) 1.2 % BASO % (test code = 706-2) 0.4 % GRAN MAT x10^3(ANC) (test code = 2463611978) 4.31 10*3/uL 1.88-7.09 IMM GRAN x10^3 (test code = 0229437933) <0.03 0-0.06 LYMPH x10^3 (test code = 731-0) 3.58 10*3/uL 1.32-3.29 H MONO x10^3 (test code = 742-7) 0.47 10*3/uL 0.33-0.92 EOS x10^3 (test code = 711-2) 0.10 10*3/uL 0.03-0.39 BASO x10^3 (test code = 704-7) 0.03 10*3/uL 0.01-0.07 Lab Interpretation (test code = 11497-2) Abnormal [facility] Foot2651-62-34 05:53:00* Test Item Value Reference Range Interpretation Comme nts POCT PREG (test code = 1605) Negative On board controls acceptable with C Line (test code = 3574) Present POCT PREG LOT # (test code = 3575) [facility] [id number] PREG TEST DATE ( test code = 3576) 10/05/2021 Lab Interpretation (test cod e = 01311-2) Normal [facility] Consult Notes Date/Time Note Provider Source 2025-03-08 10:16:53 Associated Order(s): CONSULT CARDIOLOGY; CONSULT CARDIOLOGY [facility] Cardiology Consult PCP: Sarah Yip Date of Service: 03/08/2025 CHIEF COMPLAINT/reason for consult: chest pain HISTORY OF PRESENT ILLNESS Charity Roca is a 45 years old female. She has a past medical history of hypertension, anxiety, morbid obesity, cigarette smoking, and family history of coronary artery disease. History of CAD PCI stenting. She came to the hospital due to nausea, vomiting and diarrhea. Associated with chest pain which is described as pressure and lasting all day long. EKG showed no acute changes. Troponin has been negative. Chest x-ray was clear. Left heart cath in October 2024 showed no significant obstruction. Reported another left heart cath 2 [facility] ago in [facility] showing no significant CAD. PAST MEDICAL HISTORY Past Medical History: Diagnosis Date Anxiety Hypertension PTSD (post-traumatic stress disorder) of family members. Past Surgical History: Procedure Laterality Date CHOLECYSTECTOMY TONSILLECTOMY Family History Problem Relation Age of Onset Heart Mother [place] in her 40s Heart Father [place] in his 60s ALLERGIES No Known Allergies MEDICATIONS No current facility-administered medications on file prior to encounter. Current Outpatient Medications on File Prior to Encounter Medication Sig Dispense Refill dicyclomine 20 mg tablet Take 1 tablet by mouth every 6 hours as needed for Abdominal pain. 20 tablet 0 omeprazole 40 mg capsule Take 1 capsule by mouth in the morning. 30 capsule 0 ondansetron 4 mg disintegrating tablet Take 1 tablet by mouth every 8 hours as needed for Nausea and Vomiting (N/V). 15 tablet 0 ALPRAZolam 2 mg 24 hr tablet Take 1 tablet by mouth in the morning and 1 tablet in the evening. lisinopriL 40 mg tablet Take 1 tablet by mouth in the morning. 90 tablet 3 metoprolol tartrate 25 mg tablet Take 0.5 tablets by mouth in the morning and 0.5 tablets in the evening. 90 tablet 3 rosuvastatin 40 mg tablet Take 1 tablet by mouth at bedtime. 90 tablet 3 aspirin 81 mg EC tablet Take 1 tablet by mouth in the morning. clopidogreL 75 mg tablet Take 1 tablet by mouth in the morning. hydrOXYzine 50 mg tablet Take 1 tablet by mouth every 12 hours as needed for Anxiety. famotidine (PEPCID) 20 mg tablet Take 1 tablet by mouth in the morning and 1 tablet in the evening. (Patient taking differently: Take 1 tablet by mouth in the morning.) 30 tablet 0 methocarbamoL (ROBAXIN) 500 mg tablet Take 1 tablet by mouth every 6 (six) hours as needed for Pain (scale 7-10) (MUSCLE SPASM). (Patient taking differently: Take 1.5 tablets by mouth in the morning and 1.5 tablets at noon and 1.5 tablets in the evening.) 20 tablet 0 haloperidoL 2 mg tablet Take 1 tablet by mouth at bedtime. (Patient not taking: Reported on 03/07/2025) isosorbide mononitrate 60 mg 24 hr tablet Take 1 tablet by mouth in the morning. (Patient not taking: Reported on 03/07/2025) SOCIAL HISTORY Social History Socioeconomic History Marital status: Number of children: 0 Years of education: 12 Highest education level: High school graduate Occupational History Occupation: disabled Tobacco Use Smoking status: Former Current packs/day: 0.00 Types: Cigarettes Quit date: 11/12/2024 Years since quittin.3 Passive exposure: Past Smokeless tobacco: Former Tobacco comments: In the process of quitting. Now smokes 5 cigarettes/ day from 2 packs per day Social Drivers of Health Food Insecurity: No Food Insecurity (11/27/2024) NCSS - Food Insecurity Worried About Running Out of Food in the Last Year: No Ran Out of Food in the Last Year: No Transportation Needs: No Transportation Needs (11/27/2024) NCSS - Transportation Lack of Transportation: No Housing Stability: Not At Risk (11/27/2024) NCSS - Housing/Utilities Has Housing: Yes Worried About Losing Housing: No Unable to Get Utilities: No REVIEW OF SYSTEMS General: (-) fever, (-) chills, (-) weight change, (-) dizziness, (-) fatigue Skin: (-) rash HEENT: (-) headache, (-) change in vision Neck: (-) difficulty swallowing Heme: negative Resp: (-) cough, (+) dyspnea on exertion Cardio: (+) chest pain, (-) palpitations, (-) syncope GI: (+) vomiting, (+) diarrhea : negative Endo: (-) diabetes, (-) thyroid disease Neuro: (-) numbness, (-) tingling, (-) weakness Back: (-) pain TOLU: (-) muscle pain, (-) claudication Psych: (-) anxiety, (-) depression PHYSICAL EXAMINATION Vitals: 03/07/25 1955 03/07/25 2318 03/08/25 0308 03/08/25 0722 BP: (!) 195/117 130/75 114/54 Pulse: 85 70 64 Resp: Temp: 36.3 ?C (97.3 ?F) 36.3 ?C (97.3 ?F) 36.4 ?C (97.6 ?F) TempSrc: SpO2: 98% 98% 96% Weight: 108.5 kg (239 lb 4.8 oz) 108.5 kg (239 lb 3.2 oz) Height: 1.575 m (5' 2") Constitutional: alert and oriented x 3 (person, place and date/time); no apparent distress, obese ENT: normocephalic atraumatic, supple, no lymphadenopathy, no bruits, no JVD Lungs: clear to auscultation bilaterally Cardiovascular: S1, S2 normal, regular; no murmurs, rubs or gallops GI: soft; non-tender; non-distended; normoactive bowel sounds : not examined Musculoskeletal: Extremities: no clubbing, cyanosis, or edema Skin: no rashes Neuro: no focal deficits LABS - reviewed pertinent labs as below: CBC BMP PT/INR WBC x10 3 (/CMM) Date Value 07/23/2004 11.4 (H) WBC (10*3/?L) Date Value 03/08/2025 8.08 NA Date Value 03/08/2025 138 mmol/L 07/23/2004 140 MMOL/L No results found for: "PT" PLT x10 3 (/CMM) Date Value 07/23/2004 301 PLT (10*3/?L) Date Value 03/08/2025 334 K Date Value 03/08/2025 3.3 mmol/L (L) 07/23/2004 3.9 MMOL/L INR (no units) Date Value 11/01/2024 1.0 HGB Date Value 03/08/2025 10.6 g/dL (L) 07/23/2004 14.9 G/DL BUN Date Value 03/08/2025 4 mg/dL (L) 07/23/2004 6 MG/DL (L) HCT (%) Date Value 03/08/2025 34.3 (L) 07/23/2004 43.1 CREATININE Date Value 03/08/2025 0.61 mg/dL 07/23/2004 0.77 MG/DL LIPID PROFILE GLUCOSE Date Value 03/08/2025 101 mg/dL 07/23/2004 119 MG/DL (H) CHOL (mg/dL) Date Value 11/27/2024 165 TSH LDL CHOL (mg/dL) Date Value 11/27/2024 68 TSH (mIU/L) Date Value 11/01/2024 4.07 CARDIAC ENZYMES HDL (mg/dL) Date Value 11/27/2024 31 (L) No results found for: "CK" TRIG (mg/dL) Date Value 11/27/2024 329 (H) LFTs No results found for: "CKMB" AST(SGOT) (U/L) Date Value 03/07/2025 17 07/23/2004 20 TROPONIN I (ng/mL) Date Value 03/07/2025 0.001 ALT(SGPT) (U/L) Date Value 07/23/2004 26 ALTv (U/L) Date Value 03/07/2025 16 No results found for: "BNP" IMAGING - reviewed, pertinent results as below: CXR--clear EKG: sinus tachycardia ASSESSMENT/PLAN Principal Problem: Chest pain, unspecified type Active Problems: Morbid obesity with body mass index of 40.0-49.9 Cigarette smoker Family history of early CAD Essential hypertension Elevated brain natriuretic peptide (BNP) level Snores Coronary artery disease involving [place] coronary artery of [place] heart with angina pectoris Dyslipidemia Nausea, vomiting and diarrhea-suspect Gastroenteritis. Chest pain--atypical. No acute EKG changes. [place] ruled out by negative troponin. Reported left heart cath 2 months ago showing no need for intervention. Another left heart cath in October 2024 8 [facility] showed no significant obstruction. Recommend outpatient follow-up. Coronary artery disease-history of PCI stenting. Continue aspirin, Plavix, Imdur, metoprolol, and high intensity Crestor. Follow-up with primary distribution systems serviceperson. BNP elevation--with dyspnea on exertion and orthopnea. CXR is clear. Snoring--OP sleep study to assess RHONA HTN--well controlled. Continue with home antihypertensives including metoprolol and lisinopril. Smoking, obesity--diet, exercise, weight loss and smoking cessation Thank you for allowing us to participate in the care of your patient. Please feel free to contact us for any questions or if we can be of further assistance. Total Visit Time: 60 mins The total Visit time for today's visit with @NAME@ encompassed 60 minutes. Time was spent reviewing the chart [...] Ordering referrals and/or communicating with other health managed care specialist (when not separately reported), Documenting clinical information in the electronic or other health record, and Independently interpreting results (not separately reported) and/or communicating results to the patient/family/caregiver. This report was dictated using [employer] and is subject to voice recognition errors. [...] and verbzalised statisfcation in the answers given. Brayden Ng MD, FACC, TYSHAWN [employer], Division of Cardiology [facility] 2024-11-01 09:43:46 Associated Order(s): CONSULT CARDIOLOGY [facility] Cardiology Consult Note Patient: Charity Roca Date [...] palpitations at rest. No syncopal attacks. Primary distribution systems serviceperson: Dr. Jerson MONTE dated 11/2023. Reports having [...] Problem Relation Age of Onset Heart Mother [place] in her 40s Heart Father [place] in his 60s SOCIAL HISTORY Social History [...] BIDPRN, Alexey Alegre MD, 1 mg at 11/01/246 aspirin EC tablet 81 mg, 81 mg, Oral, DAILY, Alexey Alegre MD, 81 mg at 11/01/24 08 clopidogreL (PLAVIX) 75 mg tablet 75 mg, 75 mg, Oral, DAILY, Alexey Alegre MD, 75 mg at 11/01/24818 famotidine (PEPCID AC) tablet 20 mg, 20 mg, Oral, BID, Alexey Alegre MD, 20 mg at 11/01/24 08 haloperidoL (HALDOL) tablet 2 mg, 2 mg, Oral, QHS, Alexey Alegre MD hydralAZINE (APRESOLINE) injection 10 mg, 10 mg, Slow IV Push, Q4HPRN, Alexey Alegre MD hydrOXYzine (ATARAX) tablet 50 mg, 50 mg, Oral, L21IATZ, Alexey Alegre MD isosorbide mononitrate (IMDUR) 24 hr tablet 60 mg, 60 mg, Oral, DAILY, Alexey Alegre MD, 60 mg at 11/01/24 08 lisinopriL (PRINIVIL,ZESTRIL) tablet 40 mg, 40 mg, Oral, DAILY, Alexey Alegre MD, 40 mg at 11/01/24 08 methocarbamoL (ROBAXIN) tablet 500 mg, 500 mg, Oral, Q6HPRN, Alexey Alegre MD, 500 mg at 11/01/24818 rosuvastatin (CRESTOR) tablet 20 mg, 20 mg, [...] CAD Essential hypertension Coronary artery disease involving [place] coronary artery of [place] heart with angina pectoris Dyslipidemia Chest pain [...] Recent Labs 11/01/24 0217 HGBA1C 5.6 Primary distribution systems serviceperson: Dr Healy Total Visit Time: 45 mins [...] Ordering referrals and/or communicating with other health managed care specialist (when not separately reported), Documenting clinical information in the electronic or other health record, and Independently interpreting results (not separately reported) and/or communicating results to the patient/family/caregiver. This report was dictated using [employer] and is subject to voice recognition errors. [...] feel free to call our office at [phone]. I would be happy to be of further assistance for Charity Roca wellbeing. Voice recognition software has been used to create portions of this document. An attempt to proofread has been made to minimize errors. Please do not hesitate to call with any questions. Natasha Hernandes MD 11/01/2024 9:43 AM Clin Nurse, Division of Cardiology [facility] - Health History and Physical Notes Date/Time Note Provider Source 2024-11-26 21:52:18 [facility] Hospitalist Admission H&P Date of Service: 11/26/2024 [...] catheterization done about 3-1/2 weeks ago at [place] and at that time patient did not [...] Problem Relation Age of Onset Heart Mother [place] in her 40s Heart Father [place] in his 60s SOCIAL HISTORY Social History [...] user?: NO Patient will require observation [place] PICC NURSE was verified during stay Alexx Kwok MD [facility] 2024-11-03 12:52:39 Pre-Procedure Sedation Evaluation H&P from [...] completed and signed. Alec Antoine MD PGY-5, Loan Auditor Pager: [phone] Cosigned by Dane Jurado MD at 11/03/2024 1:11 PM CDT Associated attestation - Dane Jurado MD - 11/03/2024 1:11 PM CDT I agree with the note as written Dane Jurado M.D. Interventional Cardiology Pager: [phone] INTERVENTIONAL CARDIOLOGY [facility] 2024-11-01 18:17:28 MCAWHITE Admit H&P PCP: Riddhi Montes Date of Service: 11/01/2024 CHIEF COMPLAINT: Chest pain HISTORY OF PRESENT ILLNESS Charity Roca is a 44 year old female with a PMH of morbid obesity, HTN, HLD, CAD s/p PCI (reported 10/06/2023, outpatient distribution systems serviceperson is Dr. Arthur), prior pancreatitis, PTSD, depression and anxiety who presented as a transfer from [facility] for unstable angina. The patient [...] in BP. Cardiology consulted, recommended transfer to [facility] for invasive coronary angiography. Upon arrival to [facility], patient evaluated at bedside. Stated that she [...] reflect atelectasis or infiltrate. RL: [id number] AFC: [id number] 11/01/2024 EKG with Sinus tachycardia, possible LA [...] Qtc 444 ms. Plan: - [facility] LHC - C/w Heparin gtt - C/w ASA 81 mg QD, Plavix 75 mg QD - Increased Rosuvastatin to 40 mg QD - C/w Imdur 60 mg QD, consider increasing to 90 mg QD - NTG 0.4mg SL q5min prn angina - Morphine 2mg IV q4h prn angina - Telemetry, O2 per protocol, Electrolytes: K >4, Mg>2 - Patient's outpatient distribution systems serviceperson is Dr. Arthur PTSD Depression Anxiety Patient [...] amenable to plan. - Medrec with Christian Karol in AM - C/w home Haldol 2 [...] additional details. DOS 11/02/24 Rosario Virk MD, [facility] Clin Nurse Division of Cardiovascular Medicine [facility] Health 2024-11-01 00:05:09 MEDICINE [facility] ADMIT H&P Date of Service: [...] protonix, ketorlac and it did not help. Baling Press Operator: Dr. Arthur PAST MEDICAL HISTORY Past Medical History: Diagnosis Date Anxiety Hypertension PTSD (post-traumatic stress disorder) of family members. Past Surgical History: Procedure Laterality Date CHOLECYSTECTOMY TONSILLECTOMY Family History Problem Relation Age of Onset Heart Mother [place] in her 40s Heart Father [place] in his 60s ALLERGIES No Known Allergies [...] intervention for the workup and treatment of... [facility] 2023-02-16 01:18:50 Formatting of this n ote [...] tablet 2 mg, 2 mg, Oral, TIDPRN, Rogelio, Flako, MD buPROPion XL (WELLBUTRIN XL) tablet 150 [...] the ACR Incidental Findings Committee;Journal of the [place] [employer] Volume 7, Issue 10, Pages 821-326, April 2010). CHEST 1 VW Result Date: [...] process is identified in the chest. RL: 2157 END OF REPORT Assessment and plan: Principal [...] MD 02/16/2023 IM-INTERNAL MEDICINE STAFF [facility] Procedure Notes Date/Time Note Provider Source 2024-11-03 14:54:32 Procedure(s): AR CATH PLMT L HRT & ARTS W/NJX & ANGIO IMG S&I; AR IV DOP EDILSON&/OR PRESS C/EVERETT RSRV JEFRY 1ST VSL; AR IV DOP EDILSON&/OR PRESS C/EVERETT RSRV JEFRY ADDL VSL Pre-Procedure Diagnose(s): Coronary artery disease involving [place] coronary artery of [place] heart with unstable angina pectoris Post-Procedure Diagnose(s): Coronary artery disease involving [place] coronary artery of [place] heart with unstable angina pectoris Left Heart Cath/Coronary Angiography Charity Roca Date of Service: 11/03/2024 2:55 PM Attending Physician: Dane Jurado MD Fellow: Dr. Jones Referring Physician: Dr. Sandra Procedures Performed: LHC/Coronary Angiogram: CPT 16548 FFR of mLAD: CPT 56477 FFR of mRCA: CPT 72318 Indication/Diagnosis: ACS ([place]/NSTEMI) Consent: Risks, benefits, alternatives and complications of the procedure discussed with the patient, who understood and agreed to proceed. Aseptic technique: Chlorprep Local Anesthesia: 1% lidocaine without epinephrine Sedation: Moderate Access site: right femoral artery Closure Method: Angio-Seal Sterile dressing: yes Complications: none Procedures: After patient identification/verification, the patient was thereafter transferred to the distillery laborer table. The access site was prepped [...] MD 11/03/2024 2:55 PM IM-INTERVENTIONAL CARDIOLOGY STAFF [facility] Notes <thead> Date/Time Note Provider Source [facility] [id number] 15:46:33 Future Tests Future scheduled test information is unavailable Pending Tests Pending diagnostic test information is unavailable Future Visits Future appointment information is unavailable Referrals to Other Providers <thead> Reason for Referral Referral Start Date Provider Provider Contact Information Provider Address NO PHYSICIAN NO PHYSICIAN MONTSERRAT TERRAZAS MD Work Phone: [address] [address] AIDEN SOLANO MD Work Phone: [address] [place] [phone] ENTER NAME IN NOTES OTHER ENTER NAME [...] Oxygen Therapy October 13, 2024 6:47pm Apri 2024 6:46pm VS - Adult October 13, 2024 6:47pm October 6:46pm Electrocardiogram, Complete October 13, 2024 6:47 pm October 13, 2024 6:46pm Place in Observation October 13, 2024 11:17pm Oct 11:15pm Resuscitation Status October 13, 2024 11:19pm Oct 11:17pm ACTIVATE TELEMETRY October 13, 2024 11:20pm October 13, 2024 TRANSFER ROOM October 13, 2024 11:58pm October, 2024 CARDIOLOGY CONSULT October 14, 2024 1:24pm October 14, 2024 DISCHARGE PATIENT October 14, 2024 6:26pm October 142024 Insert Peripheral IV Access November 15, 2024 12:15 pm November 15, 2024 12:13pm VS - Adult November 15, 2024 12:15pm November 15, 2024 12:13pm Cardiac, BP, Pulse Ox Monitor December 10, [...] 2024 6:22p m December 10, 2024 6:21pm NPO except Meds March 05, 2025 6:39pm March 05, 2025 6:36pm Insert Peripheral IV Access March 05, 2025 6: 39pm March 05, 2025 6:36pm Cardiac, BP, Pulse Ox Monitor March 05, 2025 6:39pm March 05, 2025 6:36pm Remove Clothing/Place in Gown March 05, 2025 6:39pm March 05, 2025 6:36pm VS - Adult March 05, 2025 6:39pm March 05, 2025 6:36pm Electrocardiogram, Complete March 05, 2025 6: 39pm March 05, 2025 6:36pm Future Medications Future medication information is unavailable Patient Instructions <tbody> Otitis Externa, Lwbe-bl-Baqv Allergic Rhinitis, Adult, Ea sy-to-Read Ovarian Cyst, Hmzp-gg-Gtsn Abdominal Pain, Adult, Easy- to-Read Renal Mass Nonspecific Chest Pain, Adul t, Eqnc-tn-Yykr Acetaminophen; Hydrocodone t ablets or capsules Sucralfate tablets Pantoprazole tablets Ciprofloxacin tablets Nonspecific Chest Pain, Adul t, Kgou-to-Bcrq Alprazolam tablets Trazodone Tablets Aspirin Tablets Urinary Tract Infection, [place] lt, Vybu-ek-Umvh Dehydration, Adult, Easy-to- Read Urinary Tract Infection, [place] lt, Vpld-ff-Sroe Chest Wall Pain, Easy-to-Tiesha d Nausea, Adult, Kiuu-fn-Dzwx Nonspecific Chest Pain, Adul t Nonspecific Chest Pain, Adul t, Iixv-nr-Lpat Renal Colic, Qszx-nz-Acrw Hematuria, Adult Chest Wall Pain, Easy-to-Tiesha d [facility]2025-09-18 18:28:02 PT LEFT AMA. AMA PAPERS signed and on chart. PT COUNSELED TO REMAIN, BUT PT DECLINED. LEFT via personal means of transportation. VS not taken, NO ATAXIA, GCS 15, AO4. [facility]ita [id number] 17:19:04 Pt states she has had mid to left sided chest pain that radiates to left shoulder since 9am today, took 324mg aspirin, and 1nitro, with no relief, also c/o N/V. Hx cardiac stent, ptsd, anxiety, depression Briseida Emery [id number] 12:06:52 Problem: Falls, Risk of Goal: Absence of falls Outcome: Adequate for discharge Problem: Pain Goal: Control of pain at or below patient's documented comfort goal Outcome: Adequate for discharge Goal: Reduction in pain sensation Outcome: Adequate for discharge Problem: Discharge Planning Goal: Adequate for discharge Outcome: Adequate for discharge Goal: Effective communication Outcome: Adequate for discharge Problem: Skin integrity Impaired (Risk or Actual) Goal: Prevention of new skin breakdown Outcome: Adequate for discharge Problem: Venous Thromboembolism, (actual or risk of) Goal: Prevent further complications associated with VTE diagnosis (Actual) Outcome: Adequate for discharge Daniela Trujillo [id number] 21:18:20 Problem: Falls, Risk of Goal: Absence of falls Outcome: Progressing as expected Problem: Pain Goal: Control of pain at or below patient's documented comfort goal Outcome: Progressing as expected Goal: Reduction in pain sensation Outcome: Progressing as expected Problem: Discharge Planning Goal: Adequate for discharge Outcome: Progressing as expected Goal: Effective communication Outcome: Progressing as expected Problem: Skin integrity Impaired (Risk or Actual) Goal: Prevention of new skin breakdown Outcome: Progressing as expected Problem: Venous Thromboembolism, (actual or risk of) Goal: Prevent further complications associated with VTE diagnosis (Actual) Outcome: Progressing as expected [place] [id number] 19:43:33 Patient admitted to [facility] Med Surg for diagnosis of chest pain. Patient agrees to admission, discussed plan of care with patient and family. Patient is awake, A&Ox4, RR even and unlabored on RA. Color appropriate for race. No adverse reaction to medications administered while in ED. Belongings with patient to unit. Tomi Hope [place] [id number] 19:39:03 Nurse Report Report given to eBcky RAMIREZ. Chief complaint, assessment findings, infusion verify and orders reviewed. Tomi Hope RN [place] [id number] 13:48:43 PT REPORTS SUBSTERNAL CHEST PAIN THAT STARTED THIS MORNING. PT DESCRIBES IT "FEELS LIKE AN ELEPHANT IS SITTING ON MY CHEST" PT ALSO REPORTS EMESIS AND INABILITY TO "KEEP ANYTHING DOWN FOR 4 DAYS" Jovanna Meyer [place] [id number] 13:29:00 Associated Order(s): EKG-12 Lead ROUTINE ONCE Pre-Procedure Diagnose(s): Chest pain, unspecified type Post-Procedure Diagnose(s): Chest pain, unspecified type [facility] Emergency Department Note Patient Name: Charity Roca Date of : 1980 45 year old female Treatment Room: [address] [place] [address] Primary Care Physician: Riddhi Montes Patient Escorted by: Self [9] Mode of Arrival: Personal means [1] EMS Treatment Prior to ED Arrival: [employer] 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 Reports associated nausea, vomit, and diarrhea.. She has been having chest pain since 7:30 AM, described as an elephant sitting over her chest Patient reports that today she was going to the bathroom to throw up when she felt fainting, she did not completely collapse, denies any associated fever History provided by: Patient housekeeping room inspector used: No Past Medical History/Immunizations: Past Medical History: Diagnosis Date Anxiety Hypertension PTSD (post-traumatic stress disorder) of family members. Tetanus received in last 5 years: Yes Childhood immunizations: Up-to-date Allergies: No Known Allergies Past Social History: Tobacco Use Former; Cigarettes: Quit 11/12/2024 Passive Exposure: Past Smokeless Tobacco: Former user of smokeless tobacco. Comments: In the process of quitting. Now smokes 5 cigarettes/ day from 2 packs per day Past Surgical History: Past Surgical History: Procedure Laterality Date CHOLECYSTECTOMY TONSILLECTOMY Review of Systems: Review of Systems Constitutional: Negative for fever. HENT: Negative for congestion and ear pain. Eyes: Negative for discharge. Respiratory: Negative for cough. Cardiovascular: Positive for chest pain. Gastrointestinal: Positive for abdominal pain, diarrhea, nausea and vomiting. Genitourinary: Negative for decreased urine volume. Musculoskeletal: Negative for arthralgias. Neurological: Positive for light-headedness. Negative for seizures. Psychiatric/Behavioral: Negative for confusion. Physical Exam: Physical Exam ED Triage Vitals [03/07/25 1349] Weight 104.3 kg (230 lb) Actual or estimated Estimated by patient/family report Height 1.575 m (5' 2") BP 123/85 Pulse 110 Resp 22 Temp 37.1 ?C (98.8 ?F) Temp source Oral SpO2 99 % Measured on Room air Physical Exam Vitals and nursing note reviewed. Constitutional: General: She is not in acute distress. Appearance: She is obese. She is ill-appearing. She is not toxic-appearing or diaphoretic. HENT: Head: Normocephalic. Right Ear: External ear normal. Left Ear: External ear normal. Cardiovascular: Rate and Rhythm: Normal rate. Pulses: Normal pulses. Pulmonary: Effort: Pulmonary effort is normal. Abdominal: Palpations: Abdomen is soft. Musculoskeletal: General: No tenderness. Cervical back: Normal range of motion. Neurological: General: No focal deficit present. Mental Status: She is alert. Psychiatric: Mood and Affect: Mood is anxious. Radiology: XR Chest 1 vw Final Result Indication: chest pain RL: [id number] ORDERING PHYSICIAN: AMNA EVANS Comparison: Chest radiograph 11/26/2024 TECHNIQUE: Single view of the chest. FINDINGS: The lungs are clear. Cardiomediastinal silhouette is within normal limits. No pneumothorax. The bony structures are intact. IMPRESSION 1. No acute cardiopulmonary disease. Lab Results: Lab Results URINALYSIS - Abnormal Result Value Ref Range APPEARANCE Clear Clear COLOR Yellow Yellow PH 6.0 4.8 - 8.0 SP GRAVITY <=1.005 1.003 - 1.030 GLU U QUAL Negative Negative BLOOD Negative Negative KETONES Negative Negative PROTEIN Negative Negative UROBILIN 0.2 mg/dL 0-1.0 mg/dL BILIRUBIN Negative Negative NITRITE Negative Negative LEUK MARC Negative Negative RBC/HPF <1 0 - 3 HPF WBC/HPF <1 0 - 5 HPF BACTERIA Negative Negative SQ EPITH 2 (*) <=1 HPF CBC WITH DIFF - Abnormal WBC 8.14 4.30 - 11.10 10*3/?L RBC 4.38 3.93 - 5.25 10*6/?L HGB 10.7 (*) 11.6 - 15.0 g/dL HCT 34.0 (*) 35.7 - 45.2 % MCV 77.6 (*) 80.6 - 95.5 fL MCH 24.4 (*) 25.9 - 32.8 pg MCHC 31.5 (*) 31.6 - 35.1 g/dL RDW-SD 52.0 (*) 39.0 - 49.9 fL RDW-CV 18.6 (*) 12.0 - 15.5 % PLT 318 166 - 358 10*3/?L MPV 8.9 (*) 9.5 - 12.9 fL NRBC/100 WBC 0.0 0.0 - 10.0 /100 WBCs NRBC x103<0.01 10*3/?L GRAN MAT (NEUT) % 60.9 % IMM GRAN % 0.50 % LYMPH % 28.7 % MONO % 6.9 % EOS % 2.5 % BASO % 0.5 % GRAN MAT x103(ANC) 4.96 1.88 - 7.09 10*3/uL IMM GRAN x1030.04 0.00 - 0.06 10*3/uL LYMPH x1032.34 1.32 - 3.29 10*3/uL MONO x1030.56 0.33 - 0.92 10*3/uL EOS x1030.20 0.03 - 0.39 10*3/uL BASO x1030.04 0.01 - 0.07 10*3/uL COMP. METABOLIC PANEL (01177) - Abnormal NA 138 135 - 145 mmol/L K 3.4 (*) 3.5 - 5.0 mmol/L CL 107 98 - 108 mmol/L CO2 TOTAL 24 23 - 31 mmol/L AGAP 7 2 - 16 BUN <2 (*) 7 - 23 mg/dL GLUCOSE 86 70 - 110 mg/dL CREATININE 0.50 0.50 - 1.04 mg/dL TOTAL BILI 0.2 0.1 - 1.1 mg/dL CALCIUM 8.8 8.6 - 10.6 mg/dL T PROTEIN 6.1 (*) 6.3 - 8.2 g/dL ALBUMIN 3.4 (*) 3.5 - 5.0 g/dL ALK PHOS 71 34 - 122 U/L ALTv 16 5 - 35 U/L AST(SGOT) 17 13 - 40 U/L eGFR 117.3 mL/min/1.73m2 N-TERMINAL PRO-BNP - Abnormal NT-proBNP 155 <=125 pg/mL TROPONIN I - Normal TROPONIN I 0.003 <=0.034 ng/mL LIPASE - Normal LIPASE 52 0 - 220 U/L INFLUENZA A/B RSV COVID NAAT - Normal Influenza A NAAT Negative Negative Influenza B NAAT Negative Negative RSV by PCR Negative Negative SARS-CoV-2 NAAT Negative Negative TROPONIN I - Normal TROPONIN I 0.005 <=0.034 ng/mL URINE CULTURE TROPONIN I TROPONIN I EKG: If EKG completed, see Procedure Note. Orders and Treatments: Orders Placed This Encounter Procedures XR Chest 1 vw URINE CULTURE URINALYSIS CBC WITH DIFF COMP. METABOLIC PANEL (77298) TROPONIN I N-TERMINAL PRO-BNP LIPASE Influenza A B RSV COVID NAAT Troponin I CBC with Differential Basic Metabolic Panel (NA, K, CL, CO2, GLUCOSE, BUN, CREATININE, CA) Magnesium Serum Troponin I - Serial Q3H x2 from initial occurrence (at 0Hr, 3rd Hr and 6th Hr) Consult Cardiology Consult Cardiology Orders Placed This Encounter Medications NaCl 0.9% (NS) bolus infusion 1,000 mL famotidine (PEPCID (PF)) 20 mg in NaCl 0.9% (NS) 5 mL IV push maalox/diphenhydrAMINE:lidocaine2 %viscous 1:1:1: suspension (COMPOUNDED) ondansetron (ZOFRAN (PF)) injection 4 mg morpHINE (4 mg/mL) injection 4 mg ketorolac (TORADOL) injection 15 mg aspirin tablet 325 mg nitroglycerin (NITROSTAT) sublingual tablet 0.4 mg morpHINE (4 mg/mL) injection 4 mg acetaminophen (TYLENOL) tablet 650 mg enoxaparin (LOVENOX) injection 40 mg aspirin chewable tablet 81 mg nitroglycerin (NITROSTAT) sublingual tablet 0.4 mg HYDROcodone-acetaminophen (NORCO 5) 5-325 mg tablet 1 tablet First Provider Eval: ED Events Date/Time Event User Comments 03/07/25 1340 Medical Screening Begins AMNA MOSLEY MD -- 03/07/25 1340 First Provider Evaluation ANU EVANS MD, AMNA Ayala -- AdmissionCare Guideline: Chest Pain, Inpatient Based on the indications selected for the patient, the bed status of Inpatient was determined to be MET The following indications were selected as present at the time of evaluation of the patient: - Clinical Indications for Admission to Inpatient Care - Admission is indicated for 1 or more of the following: - Chest pain indicative of serious diagnosis other than coronary artery disease (eg, aortic dissection, pulmonary embolism) AdmissionCare documentation entered by: Amna Evans [facility], 29th edition, Copyright ? 2024 [facility] [employer] [facility] All Rights Reserved. 1091-23-44V40:43:30-05:00 ED COURSE Diagnosis/Impression as of 03/07/253 Chest pain, unspecified type Difficulty voiding Diarrhea, unspecified type Results Procedures: EKG-12 Lead ROUTINE ONCE Date/Time: 03/07/2025 1:55 PM Performed by: Amna Mosley MD Authorized by: Amna Mosley MD ECG interpreted by ED Physician in the absence of a distribution systems serviceperson: yes Interpretation: Interpretation: normal Quality: Tracing quality: Limited by artifact Rate: ECG rate: 102 ECG rate assessment: tachycardic Rhythm: Rhythm: sinus rhythm Ectopy: Ectopy: none QRS: QRS axis: Normal QRS intervals: Normal QRS conduction: normal Details: Poor r wave progression ST segments: ST segments: Normal T waves: T waves: flattening Flattening: III MDM: Assessment & Plan Medical Decision Making Patien with PMH of HTN, HTN, CAD status post stent Anxiety, today at the ED due to feeling sick for the last 4 days. Reports associated nausea, vomit, and diarrhea.. She has been having chest pain since 7:30 AM, described as an elephant sitting over her chest Patient reports that today she was going to the bathroom to throw up when she felt fainting, she did not completely collapse, denies any associated fever Differential diagnosis includes but not limited to [place], GERD, gastroenteritis, dehydration, electrolyte imbalance. Patient emergency department with mild distress due to pain, stable vital signs, reporting chest pain nausea vomiting and diarrhea, she is afebrile, lab work showed no leukocytosis, no electrolyte imbalance, preserved renal function, negative troponin, negative influenza RSV or COVID, other emergency department she received morphine x 2, Toradol, famotidine, Zofran, still complaining of chest pain patient's heart score is 4, case was discussed with cardiology and patient will be admitted to the hospital for to continue with medical management Problems Addressed: Chest pain, unspecified type: acute illness or injury Diarrhea, unspecified type: acute illness or injury Difficulty voiding: acute illness or injury Amount and/or Complexity of Data Reviewed External Data Reviewed: notes. Labs: ordered. Radiology: ordered. Discussion of management or test interpretation with external provider(s): I spoke with Dr Hernandes cardiology who reccomends admission to [facility]. Patient has history of atypical chest pains, Risk OTC drugs. Prescription drug management. Parenteral controlled substances. Decision regarding hospitalization. Flowsheet Documentation: Scoring Tools: No data recorded HEART Score: 4 Disposition/Condition: ED Disposition ED Disposition Admit - Observation Condition -- Comment Provider Care Team:: [facility] [51] Discharge Medications: Current Discharge Medication List STOP taking these medications dicyclomine 20 mg tablet Comments: Reason for Stopping: omeprazole 40 mg capsule Comments: Reason for Stopping: ondansetron 4 mg disintegrating tablet Comments: Reason for Stopping: ALPRAZolam 2 mg 24 hr tablet Comments: Reason for Stopping: lisinopriL 40 mg tablet Comments: Reason for Stopping: metoprolol tartrate 25 mg tablet Comments: Reason for Stopping: rosuvastatin 40 mg tablet Comments: Reason for Stopping: aspirin 81 mg EC tablet Comments: Reason for Stopping: clopidogreL 75 mg tablet Comments: Reason for Stopping: haloperidoL 2 mg tablet Comments: Reason for Stopping: hydrOXYzine 50 mg tablet Comments: Reason for Stopping: isosorbide mononitrate 60 mg 24 hr tablet Comments: Reason for Stopping: famotidine (PEPCID) 20 mg tablet Comments: Reason for Stopping: methocarbamoL (ROBAXIN) 500 mg tablet Comments: Reason for Stopping: Follow-up: Electronically signed by: Amna Mosley MD 03/07/25 2233 T [facility] - [id number] 13:29:00 AdmissionCare Guideline: Chest Pain, Inpatient Based on the indications selected for the patient, the bed status of Inpatient was determined to be MET The following indications were selected as present at the time of evaluation of the patient: - Clinical Indications for Admission to Inpatient Care - Admission is indicated for 1 or more of the following: - Chest pain indicative of serious diagnosis other than coronary artery disease (eg, aortic dissection, pulmonary embolism) AdmissionCare documentation entered by: Amna Evans [facility], 29 edition, Copyright ? 2024 [facility] All Rights Reserved. [id number]:43:30-05:00 [facility]woodVxrwdu7059-73-96 21:02:37 Patient Care Team <thead> Team Status: Active Member Role Status Dates ENTER NAME IN NOTES OTHER primary care physician Tyson MIRANDA , Emergency Provider Active JAN COX Next of Kin Active PIYUSH JUAREZ Emergency Contact Active CHARITY ROCA Guarantor Active [facility] [id number] 21:02:37 Future Tests Future scheduled test information is unavailable Pending Tests <thead> Test Name Ordered Date Scheduled Date Troponin T High Sensitivity March 05, 2025 8: 43pm Future Visits Future appointment information is unavailable Referrals to Other Providers <thead> Reason for Referral Referral Start Date Provider Provider Contact Information Provider Address NO PHYSICIAN NO PHYSICIAN MONTSERRAT TERRAZAS MD Work Phone: [address] [address] AIDEN SOLANO MD Work Phone: [address] [place] [address] ENTER NAME IN NOTES OTHER ENTER NAME [...] October 13, 2024 11:19pm Apr 2024 11:17pm ACTIVATE TELEMETRY October 13, 2024 11:20pm October 13, 2024 TRANSFER ROOM October 13, 2024 11:58pm October CARDIOLOGY CONSULT October 14, 2024 1:24pm October 14, 2024 DISCHARGE PATIENT October 14, 2024 6:26pm October 142024 Insert Peripheral IV Access November 15, 2024 12:15 pm November 15, 2024 12:13pm VS - Adult November 15, 2024 12:15pm November 15, 2024 12:13pm Cardiac, BP, Pulse Ox Monitor December 10, [...] 2024 6:22p m December 10, 2024 6:21pm NPO except Meds March 05, 2025 6:39pm March 05, 2025 6:36pm Insert Peripheral IV Access March 05, 2025 6: 39pm March 05, 2025 6:36pm EKG,INITIAL March 05, 2025 6:39pm March 05, 2025 6:36pm Cardiac, BP, Pulse Ox Monitor March 05, 2025 6:39pm March 05, 2025 6:36pm Remove Clothing/Place in Gown March 05, 2025 6:39pm March 05, 2025 6:36pm VS - Adult March 05, 2025 6:39pm March 05, 2025 6:36pm Electrocardiogram, Complete March 05, 2025 6: 39pm March 05, 2025 6:36pm CT ABD & PELVIS W March 05, 2025 8:05pm Augus t 2024 8:04pm CARDIAC TROPONIN T March 05, 2025 8:06pm Augu st 2024 8:06pm Future Medications Future medication information is unavailable Patient Instructions <tbody> Otitis Externa, Htxu-lv-Zfam Allergic Rhinitis, Adult, Ea sy-to-Read Ovarian Cyst, Pnmt-rt-Apty Abdominal Pain, Adult, Easy- to-Read Renal Mass Nonspecific Chest Pain, Adul t, Ifyi-ax-Tuio Acetaminophen; Hydrocodone t ablets or capsules Sucralfate tablets Pantoprazole tablets Ciprofloxacin tablets Nonspecific Chest Pain, Adul t, Cfyo-yw-Nuwa Alprazolam tablets Trazodone Tablets Aspirin Tablets Urinary Tract Infection, Milton lt, Fifu-yf-Dryd Dehydration, Adult, Easy-to- Read Urinary Tract Infection, [place] lt, Dmxm-oy-Qkuc Chest Wall Pain, Easy-to-Tiesha d Nausea, Adult, Ysnv-fo-Lyyd Nonspecific Chest Pain, Adul t Nonspecific Chest Pain, Adul t, Wdpf-se-Onvs Renal Colic, Gmfz-yy-Vvcj Hematuria, Adult Chest Wall Pain, Easy-to-Tiesha d [facility]2025-08-28 20:16:43 Pt requesting to leave AMA. ERP notified. PT counseled to remain, risk of leaving AMA including discussed with pt. Pt continued to decline further ER evaluation at this time. AMA papers signed,witnessed, and placed on patients chart. Pt left ambulatory, steady gait, no ataxia noted, GCS 15, and A&Ox4. Tomi Hope [facility]burgRbsabh9563-22-24 20:15:00 Pt requesting to leave, removed IV herself. Signed AMA paper and states "I have everything at home, I am ready to go." [facility]woodKpipvv3448-02-31 16:33:30 [facility] for upper mid abdominal pain, nausea/vomiting since yesterday. Patient had chronic pancreatitis and feels like this is similar pain. 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 Presents vitally stable. Tatianna Felipe [facility]burgLbyvme7867-76-80 15:08:22 Chief Complaint Patient presents with Follow-up Follow up for insomnia medication refills Marbella Oh LVN [facility]2025-06-10 22:30:00 No answer in lobby. Razia Yost [place] 641435-06-10 22:16:00 Pt called by Erp no answer in lobby. [place] [address]-06-10 21:01:27 Arrives to ED ambulatory. States she was here yesterday for same CC and was told to come back if new symptoms presented. Today she developed diarrhea and vomiting. Sates pain is still the same. Connie Rivera [place] [id number] 20:55:00 Called for pt in the lobby No response I therefore did not see or evaluate this pt MD Parvez Ortiz Wakili S, MD 12/15/247 [place] [id number] 16:49:16 Patient given discharge instructions, and verbalized no further concerns or questions. Skin p/w/d, rr equal and non labored. A&OX4. Ambulated independently with a steady gait in stable condition. Riddhi Su [facility]burgBwkvpa5913-69-26 13:28:17 Abdominal pain after eating and drinking since last night. Also endorsing nausea. Denies chest pain, dysuria. HX: 1 stents, +Plavix, pancreatitis, PTSD, anxiety, depression. Tatianna Felipe RNUT - [id number] 21:31:28 Patient Care Team <thead> Team Status: Active Member Role Status Dates ENTER NAME IN NOTES OTHER primary care physician Nida TYSON MD Emergency Provider Active SOLEDAD ALONSO Admitting Provider Active SOLEDAD ALONSO Attending Provider Active JAN COX Next of Kin Active PIYUSH JUAREZ Emergency Contact Active CHARITY ROCA Guarantor Active [facility] [id number] 21:31:28 Thank you for choosing us for your medical care and it was a pleasure taking care of you. Your provider s name is nurse practitioner Cathy Alegria DNP, DISTILLERY LABORER-. Follow up with your primary care provider [...] NO PHYSICIAN MONTSERRAT TERRAZAS MD Work Phone: [address] [address] AIDEN SOLANO MD Work Phone: [address] [place] [phone] ENTER NAME IN NOTES OTHER ENTER NAME [...] TRANSFER ROOM October 13, 2024 11:58pm October 8, 2024 CARDIOLOGY CONSULT October 14, 2024 1:24pm October [...] is unavailable Patient Instructions <tbody> Otitis Externa, Uark-ll-Sbfj Allergic Rhinitis, Adult, Ea sy-to-Read Ovarian Cyst, Exvp-uy-Fiah Abdominal Pain, Adult, Easy- to-Read Renal Mass Nonspecific Chest Pain, Adul t, Spxt-yh-Bxhr Acetaminophen; Hydrocodone t ablets or capsules Sucralfate tablets Pantoprazole tablets Ciprofloxacin tablets Nonspecific Chest Pain, Adul t, Muql-ry-Rxah Alprazolam tablets Trazodone Tablets Aspirin Tablets Urinary Tract Infection, Milton lt, Xwqm-wc-Qhdp Dehydration, Adult, Easy-to- Read Urinary Tract Infection, Milton lt, Csmy-yo-Gsqc Chest Wall Pain, Easy-to-Tiesha d Nausea, Adult, Fcsz-oo-Zgvd Nonspecific Chest Pain, Adul t Nonspecific Chest Pain, Adul t, Ovwk-ll-Cxpt Renal Colic, Wuqb-lj-Zwwd Hematuria, Adult Chest Wall Pain, Easy-to-Demotte d [facility]2025-06-03 21:50:29 Pt requesting to leave AMA. ERP notified. PT counseled to remain, risk of leaving AMA including discussed with pt. Pt continued to decline further ER evaluation at this time. AMA papers signed,witnessed, and placed on patients chart. Pt left ambulatory. GCS 15, and A&Ox4. Connie Rivera [facility]burgNnullp5835-01-44 20:00:15 EKG done at 1957 and given to ER provider. [facility] - Vnklre5877-23-23 19:51:23 Patient comes in with chest pain and shortness of breath that started about 45-60 minutes. Patient denies otc medications. Also reports nausea. Patient found on the floor in the waiting room when checking in. Provider in triage with telegraphic typewriter operator. Skin p/w/d, rr equal and non labored. A&Ox4. Talking in full sentences. Riddhi Su [facility]burgBjstvi0560-44-86 13:25:33 Problem: Falls, Risk of Goal: Absence [...] parameters Outcome: Adequate for discharge Maame Chen [facility]burgPripjb4347-49-29 01:17:18 Problem: Falls, Risk of Goal: Absence [...] within specified parameters Outcome: Progressing as expected [place] [address]-05-22 22:27:16 Patient admitted to [facility] Med Surg for diagnosis of Chest pain Patient agrees to admission, discussed plan of care with patient and family. Patient is awake, alert, oriented, resp reg unlabored, color appropriate for race, PIV intact No adverse reaction to medications administered while in ED Belongings with patient to unit Report to Sneha RAMIREZ [facility] Santi Delgadillo RNAd[place] [id number] 22:26:34 Nurse Report Report given to Sneha RAMIREZ. Chief complaint, assessment findings, infusion verify and orders reviewed. Santi Delgadillo RN [place] [address]-05-22 20:45:[address] Kwok pertaining to medication orders. BP was rechecked to be 125/[address] Kwok stated to hold the Nitro Paste, continue the Haldol 2mg administration, and give the [place] PRN. [place] [id number] 17:49:47 Pt to ED via [facility] CO constant CP that radiates into her L shoulder and down her arm x 1 hour. Reports it is aggravated by movement/exertion. EMS gave nitro x 1, pt had no relief. Pt also took 324mg ASA. Reports fatigue and generalized malaise for the past week. Hx of one stent placement 1 yr ago. Adeline Montelongo RN[facility] - [id number] 17:48:00 [facility] Emergency Department Note Patient Name: Charity Roca Date of : 1980 44 year old female Treatment Room: [place] [address] Primary Care Physician: Riddhi Montes Patient Escorted by: Self [9] Mode of Arrival: [facility] - [facility] [45] EMS Treatment Prior to ED Arrival: CROP AND SOIL TECHNICIAN treatment: Aspirin;NTG CROP AND SOIL TECHNICIAN treatment comments: 324mg ASA Travel and Exposure [...] vw Cbc with Diff Comp. Metabolic Panel (58776) Lipase Magnesium N-Terminal Pro-Bnp Troponin I No [...] Electronically signed by: Klaudia Narvaez DO 11/26/24 4579 [facility] [id number] 15:49:26 Patient Care Team <thead> Team Status: Active Member Role Status Dates ENTER NAME IN NOTES OTHER primary care physician Nida TYSON MD Emergency Provider Active SOLEDAD ALONSO Admitting Provider Active SOLEDAD ALONSO Attending Provider Active JAN COX Next of Kin Active PIYUSH JUAREZ Emergency Contact Active CHARITY ROCA Guarantor Active [facility]2025-05-11 15:49:26 Thank you for choosing us for your medical care and it was a pleasure taking care of you. Your provider s name is nurse practitioner Cathy Alegria DNP, DISTILLERY LABORER-BC. Follow up with your primary care provider [...] NO PHYSICIAN MONTSERRAT TERRAZAS MD Work Phone: [address] [address] AIDEN SOLANO MD Work Phone: [address] [place] [address] ENTER NAME IN NOTES OTHER ENTER NAME [...] Resuscitation Status October 13, 2024 11:19pm Apr la 2024 11:17pm ACTIVATE TELEMETRY October 13, 2024 [...] is unavailable Patient Instructions <tbody> Otitis Externa, Hnib-cq-Xxwj Allergic Rhinitis, Adult, Ea sy-to-Read Ovarian Cyst, Svlz-uu-Iamm Abdominal Pain, Adult, Easy- to-Read Renal Mass Nonspecific Chest Pain, Adul t, Gzsq-ft-Limw Acetaminophen; Hydrocodone t ablets or capsules Sucralfate tablets Pantoprazole tablets Ciprofloxacin tablets Nonspecific Chest Pain, Adul t, Flgz-cp-Upef Alprazolam tablets Trazodone Tablets Aspirin Tablets Urinary Tract Infection, Milton lt, Idwz-km-Zsnl Dehydration, Adult, Easy-to- Read Urinary Tract Infection, Milton lt, Xygt-uy-Vgog Chest Wall Pain, Easy-to-Demotte d Nausea, Adult, Xhjz-gf-Pzoc Nonspecific Chest Pain, Adul t Nonspecific Chest Pain, Adul t, Ewso-fd-Dtbk Renal Colic, Aiiu-jb-Nvlg Hematuria, Adult [facility]2025-05-10 22:15:04 Radiology reported to RN that pt was not in room when he arrived to take her for CT. Aprox 10 min later pt still not in room. Pt eloped before dispo. Becky Rios [facility]burgMojene0041-09-32 20:41:53 C/o bilateral lower back pain x1 day Took APAP at 5pm with no relief Dysuria Renato Doan [facility]burgNdpqcs6674-47-90 20:36:00 [facility] Emergency Department Note Patient Name: Charity Roca Date of : 1980 44 year old female Treatment Room: Room/bed info not found Primary Care Physician: Riddhi Montes Patient Escorted by: Self [9] Mode of Arrival: Personal means [1] EMS Treatment Prior to ED Arrival: CROP AND SOIL TECHNICIAN treatment: None Travel and Exposure Screening: Symptoms [...] DO -- ED COURSE Diagnosis/Impression as of 11/14/244 Flank pain Dysuria Procedures: Procedures MDM: Medical [...] Follow-up: Electronically signed by: Bushra Rios DO 11/14/242 [place] [id number] 01:03:17 Pt given printed and verbal discharge [...] gait, in no apparent distress, Angelita Patino [place] 641435-05-06 19:56:35 Pt given urine cup and placed back into lobby with instructions for collecting urine sample. T [place] 683785-05-06 19:52:11 Pt arrived ambulatory without assist. Pt c/o left lower abd pain that started around 12pm today. Shaneka Atkinson [place] 641435-05-06 19:51:00 [facility] Emergency Department Note Patient Name: Charity Roca Date of : 1980 44 year old female Treatment Room: [facility] ED [facility] Primary Care Physician: Riddhi Montes Patient Escorted by: Family [5] Mode of Arrival: Personal means [1] EMS Treatment Prior to ED Arrival: CROP AND SOIL TECHNICIAN treatment: None Travel and Exposure Screening: Symptoms [...] History provided by: Patient and medical records housekeeping room inspector used: No Abdominal Pain Pain location: LUQ [...] 0.01 - 0.07 10*3/uL COMP. METABOLIC PANEL (24853) - Abnormal NA 137 135 - 145 [...] contrast Cbc with Diff Comp. Metabolic Panel (76113) Urinalysis POCT TEST Lipase Orders Placed This [...] illness or injury Details: Will follow-up with OB-VOIP NETWORK ENGINEER Amount and/or Complexity of Data Reviewed [...] follow-up Riddhi Montes Relationship: PCP - [place] [address] [facility] [id number] Electronically signed by: Bob Garcia MD 11/11/24 0024 [facility] BeachwoodNvquaz4448-93-98 10:58:35 Pt tolerating meals Up with minimal assist Right site clean, dry and intact; covered with gauze and tegaderm Laya Langley RNSelect Medical [facility] Clinic [facility], BeachwoodBlmmsx3201-72-04 06:19:25 Problem: Falls, Risk of Goal: Absence [...] breakdown Outcome: Progressing as expected Anuradha Heard [facility]burgOebuuz9516-62-86 19:16:34 Problem: Falls, Risk of Goal: Absence of falls Outcome: Progressing as expected Problem: Discharge Planning Goal: Adequate to move to next level of care Outcome: Progressing as expected Goal: Knowledge of medication management Outcome: Progressing as expected Renato Mott [facility]burgRgkven0962-50-88 04:24:10 Problem: Falls, Risk of Goal: Absence [...] airway Outcome: Progressing as expected Omaira Diaz [facility]burgYmirjv4044-66-85 07:22:14 Problem: Falls, Risk of Goal: Absence of falls 11/02/2024 0721 by Omaira Diaz, RN Outcome: Progressing as expected 11/02/2024719 by [...] Omaira Diaz RN Outcome: Progressing as expected [facility]2025-04-28 07:21:23 Problem: Falls, Risk of Goal: Absence [...] Goal: Patent airway Outcome: Progressing as expected [facility]2025-04-27 14:02:33 Report given to JAMES Trejo. Susie Willard RNUTMB - Esatxz5032-79-27 08:41:16 Images from the original note were not included. Pharmacy Recommendations for Patient Admission: Consider lowering dose of famotidine to 20mg once daily as patient has been taking this dose at home. The CROP AND SOIL TECHNICIAN medication list has been updated and reflected in the chart below. Please use the CROP AND SOIL TECHNICIAN Med List for ordering home doses during admission. Patient Adherence: Adherent to all medications. Source(s) used in interview: Patient Interview limitations: None Medications Added Medications Removed Medications Modified Alprazolam dose reduced to 1mg BID prn Famotidine ordered as 20mg BID Methocarbamol ordered as 500mg Q6H prn Allergies as of 10/31/2024 (No Known Allergies) Pharmacy Updated CROP AND SOIL TECHNICIAN Med List Medication Sig aspirin 81 mg [...] in the evening.) Outpatient Pharmacy Contact Information: [facility] [id number] - [place], [place] - [address] [facility] [address] [facility] [address] [facility] - [place], [place] - [address] [facility] [address] [facility]/pharmacy #[id number] - [place], [place] - [address] [address] Thank you for the opportunity to participate in the care of this patient. Surekha Rowland RPH 8:38 AM, 11/01/2024 [facility] Department of Pharmacy - [facility] Phone: ADC: [phone] T Surekha Rowland [facility]2025-04-27 01:15:13 Problem: Falls, Risk of Goal: Absence [...] Absence of infection Outcome: Progressing as expected [facility]2025-04-27 00:27:06 Patient states pain to chest no 6/10-appears much more comfortable, Bp normotensive. Transported via W/C to 2217. Patient alert, warm, dry, pink, in no distress upon departure from ER [facility]2025-04-27 00:22:38 Nurse Report Report given to Bhupinder RAMIREZ. Chief complaint, assessment findings, infusion verify and orders reviewed. Plan of care discussed at bedside with patient. Patient verbalized understanding. MAGGIE CACERES RN [place] 223775-04-26 23:15:00 Patient continues to C/O persistent sharp midsternal chest pain 9/10. Medicated as ordered with GI cocktail po and Morphine 4 mg IV. [place] 223775-04-26 22:15:00 Dr Garcia at bedside. Medicated with NTG 0.4 mg Sl for sharp chest pain 10/10 without relief. Patient then medicated with Zofran 4 mg Iv and Morphine 4 mg IV as ordered. Patient anxious, hypertensive. [place] 223775-04-26 21:36:50 C/O onset sharp midsternal chest pain that radiates to left arm, left shoulder, and left scapula area-has been steadily worsening. Has had nausea and vomiting. Patient has had [place] in the past, has cardiac stent X1 placed in September of last year. O2 at 2 liters/min placed without improvement to chest pain. [facility] Maggie Caceres [facility]burgFcyqkq5510-30-24 21:24:00 Associated Order(s): EKG-12 Lead ROUTINE ONCE Pre-Procedure Diagnose(s): Chest pain, unspecified type Post-Procedure Diagnose(s): Chest pain, unspecified type [facility] Emergency Department Note Patient Name: Charity Roca Date of : 1980 44 year old female Treatment Room: 9/9 Primary Care Physician: Riddhi Montes Patient Escorted by: Family [5] Mode of Arrival: Personal means [1] EMS Treatment Prior to ED Arrival: CROP AND SOIL TECHNICIAN treatment: Other (comment) CROP AND SOIL TECHNICIAN treatment comments: Protoniz, 4 baby ASA, Toradol [...] been vomiting about five times today. 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 No known aggravating or relieving factors. Pt has taken ASA 324 mg CROP AND SOIL TECHNICIAN in the ED. Pt smokes 1/3PPD , No ETOH. Deneis any illcit drug use. No prolonged immobilization. No OCA. No leg edema or calf pain. Deneis any URI symptoms. No abdominal pain History provided by: Significant other and patient housekeeping room inspector used: No Chest Pain Pain location: Epigastric [...] S/P Stent X 06 September 2023 Q-wave [place] Tetanus received in last 5 years: Unknown [...] reflect atelectasis or infiltrate. RL: 781 AFC: 01882 Lab Results: Lab Results COMP. METABOLIC PANEL (99478) - Abnormal Result Value Ref Range NA [...] 1 vw TROPONIN I COMP. METABOLIC PANEL (32932) LIPASE, SERUM CBC WITH DIFF POCT Test Cbc with Diff Basic Metabolic Panel (NA, K, CL, CO2, GLUCOSE, BUN, CREATININE, CA) Troponin I Procalcitonin Influenza A B RSV COVID NAAT Lab Only COVID Interpretation N-Terminal Pro-Bnp Lipid Panel (25779)(Total Cholesterol, Triglycerides, HDL) Glycosylated Hemoglobin (A1C) Urinalysis [...] care. AdmissionCare documentation entered by: Bob Garcia [facility], 28 edition, Copyright ? 2023 [facility] [employer] All Rights Reserved. [id number]:59:01-05:00 ED COURSE Diagnosis/Impression as of 11/03/24 0459 Chest pain, unspecified type Procedures: EKG-12 Lead ROUTINE ONCE Date/Time: 10/31/2024 9:32 PM Performed by: Bob Garcia MD Authorized by: Bob Garcia MD ECG interpreted by ED Physician in the absence of a distribution systems serviceperson: yes Previous ECG: Previous ECG: Compared to [...] - Observation Condition -- Comment Treatment Team: [facility] [[id number]] Discharge Medications: Current Discharge Medication List STOP [...] signed by: Bob Garcia MD 11/03/24 0459 [facility]woodRxdvxu7944-16-15 21:24:00 AdmissionCare Guideline: Chest Pain, Inpatient Based [...] care. AdmissionCare documentation entered by: Bob Garcia [facility], 28th edition, Copyright ? 2023 [facility] All Rights Reserved. [id number]:59:01-05:00 [facility]2025-04-18 23:53:58 Awake, alert oriented X4, respiratory even [...] noted upon discharge. [facility] Connie Rivera [facility]burgAlfbtw3519-34-81 20:14:29 Patient arrived ambulatory to ED c/o upper abdominal pain that radiates to the left side. Went to PCP today and they told her if it was still hurting come to the ER. Toradol taken today with no relief. States she feels like it is her pancreas. Jen Merrill RNUT - Omwqwc3911-99-05 20:12:00 [facility] Emergency Department Note Patient Name: Charity Roca Date of : 1980 44 year old female Treatment Room: [place] [address] Primary Care Physician: Riddhi Montes Patient Escorted by: Family [5] Mode of Arrival: Personal means [1] EMS Treatment Prior to ED Arrival: CROP AND SOIL TECHNICIAN treatment: Medication (comment) CROP AND SOIL TECHNICIAN treatment comments: Toradol Travel and Exposure Screening: [...] 0.01 - 0.07 10*3/uL COMP. METABOLIC PANEL (06693) - Abnormal NA 136 135 - 145 [...] contrast Cbc with Diff Comp. Metabolic Panel (04055) Lipase Urinalysis Orders Placed This Encounter Medications [...] A) Hiatal Hernia, UTI Disposition/Condition: Home, Pepcid, [place]/Zofran prn, Cefdinir x 7 days, ER warnings, [...] Electronically signed by: Juanjose Barker MD 10/23/24 2341 [facility]woodKklhsr2327-12-20 10:16:39 Patient is here for a follow up from the hospital for chest pain and back pain. She needs a refill on the Hydroxyzine Pamoate 50 mg. She scored high for depression and anxiety but reports that she is able to use her coping mechanisms, has a place where she feels safe, and a safe person. [facility]2025-04-09 19:51:24 Patient Care Team <thead> Team Status: Active Member Role Status Dates ENTER NAME IN NOTES OTHER primary care physician Nida TYSON MD Emergency Provider Active SOLEDAD ALONSO Admitting Provider Active SOLEDAD ALONSO Attending Provider Active JAN COX Next of Kin Active PIYUSH JUAREZ Emergency Contact Active CHARITY ROCA Guarantor Active [facility] Dfe5299-20-46 19:51:24 [facility] Vmd6562-21-20 19:51:24 Future Tests Future scheduled test information is unavailable Pending Tests <thead> Test Name Ordered Date Scheduled Date Troponin T High Sensitivity October 14, 2024 11:1 7pm Future Visits Future appointment information is unavailable Referrals to Other Providers <thead> Reason for Referral Referral Start Date Provider Provider Contact Information Provider Address NO PHYSICIAN NO PHYSICIAN MONTSERRAT TERRAZAS MD Work Phone: [address] [facility] [address] AIDEN SOLANO MD Work Phone: [address] [place] [phone] ENTER NAME IN NOTES OTHER ENTER NAME [...] 13, 2024 11:19pm Apr il 2024 11:17pm Bathroom Privileges w/ Assist October 13, 2024 11 :19pm October 13, 2024 11:17pm Tylenol October 13, 2024 11:19pm October 11:20pm MORPHINE SULFATE October 13, 2024 11:19pm October 132024 11:20pm Narcan October 13, 2024 11:19pm October 11:20pm Zofran October 13, 2024 11:19pm October 11:20pm Colace October 13, 2024 11:19pm October [...] is unavailable Patient Instructions <tbody> Otitis Externa, Rall-rf-Jslc Allergic Rhinitis, Adult, Ea sy-to-Read Ovarian Cyst, Aqba-wv-Trsv Abdominal Pain, Adult, Easy- to-Read Renal Mass Nonspecific Chest Pain, Adul t, Cmti-wq-Yzwl Acetaminophen; Hydrocodone t ablets or capsules Sucralfate tablets Pantoprazole tablets Ciprofloxacin tablets Nonspecific Chest Pain, Adul t, Qbah-un-Fvea Alprazolam tablets Trazodone Tablets Aspirin Tablets Urinary Tract Infection, Milton lt, Uktz-ci-Ouom Dehydration, Adult, Easy-to- Read Urinary Tract Infection, [place] lt, Jaqi-mn-Ugvy Chest Wall Pain, Easy-to-Demotte d Nausea, Adult, Bolj-bb-Jgay Nonspecific Chest Pain, Adul t Nonspecific Chest Pain, Adul t, Esvr-da-Lotm [facility]2025-04-08 02:45:03 Pt given printed and verbal discharge [...] gait, in no apparent distress. Jeana Pringle [facility]burgRxahmb8686-46-67 22:25:27 Pt arrived ambulatory without assist. Pt c/o chest pain that started around 8pm, and UTI symptoms that started yesterday. Shaneka Atkinson [facility]burgInslky6951-38-17 01:23:02 Pt given printed and verbal discharge [...] with steady gait, in no apparent distress, [place] 623195-01-12 00:57:31 ERP at bedside. [place] 623195-01-12 00:09:25 07/18/24 2356 07/19/24 0000 07/19/24 0008 Orthostatic Vitals BP 132/56 (!) 139/92 (!) 157/112 BP Location Left arm Left arm Right leg Position Lying Sitting Standing Pulse 79 78 78 NYA Merrill [place] 641435-01-11 23:44:12 Patient states "feeling like crap. Every time I stand up everything gets dizzy, black, and I feel like I am going to pass out." [facility]2025-01-11 22:39:11 Pt brought [facility] by [facility]. [...] and pain in back. Pt went to [facility] yesterday and they said she was low on potassium (was given 4 tablets of potassium). Pt took home medications today NYA Atkinson [place] 641434-12-28 01:30:39 PT D/C home. GCS15, VS stable. [...] have someone drive her home. NYA Ayala [facility]burgVmjpwt6346-53-03 19:51:20 Pt arrives ambulatory to ED c/o N/V/D x3 days and says today began having right side abdominal pain. NYA Rios [facility]burgSzlcdp8717-21-68 02:58:12 Pt given printed and verbal discharge [...] with steady gait, in no apparent distress. [facility]2024-12-15 01:57:43 Pt arrives ambulatory to ED c/o "spider bite" upper right abdomen area. She says she squeezed it right before coming in and puss came out of it, leaving a black hole. So she came in to be evaled. HT SHIFTER Becky Rios [facility]burgXwniku6751-10-20 00:27:31 Pt given printed and verbal discharge [...] gait, in no apparent distress, NYA Delgadillo [facility]burgOetfzt0206-12-53 22:55:00 Report given to JAMES Delgadillo NYA Emery [facility]burgSiblrb7078-10-84 21:23:27 Patient arrived ambulatory to ED c/o abdominal pain that started Saturday. Patient recently had heart cath placed on . States "haven't been keeping anything down. I can't even keep my medications down." NYA Merrill [place] 641434-12-01 02:39:24 Pt given printed and verbal discharge [...] gait, in no apparent distress, NYA Delgadillo [facility]burgUoeoyj4226-60-44 00:46:48 Report to Leona RAMIREZ. NYA Montelongo [place] 641434-11-30 22:01:17 Patient arrived ambulatory to ED c/o chest pain that started around 1900 tonight. Patient took 4 baby ASA CROP AND SOIL TECHNICIAN. Sharp chest pain that radiates to left shoulder. NYA Merrill [place] 641434-11-21 13:02:38 Chief Complaint Patient presents with Shoulder Pain Pt complains of left shoulder pain that has been in pain for last 3 years. Pain is getting worse. No injury. No occupation. Pt has been doing PT for shoulder. She is also taking methocarbamol for pain however it is not helping. [place] 501554-11-12 13:33:08 Patient given discharge instructions with readback, discussed prescriptions and follow up care. . Steady gait with NAD noted. NYA Davila RNAdrian [place] 683784-11-12 11:42:01 Patient had a fall on Saturday and came into ED to be seen. Had pain meds and scan performed with no significant findings. Patient called her PCP and they told her to go to ER because she could have a concussion or just feel worse. NYA Cronin [place] 641434-11-11 10:27:22 Chief Complaint Patient presents with Physical Patient is fasting. No other issues to discuss Jennifer Del Castillo MA II [facility]2024-11-10 22:18:24 Pt given printed and verbal discharge [...] with steady gait, in no apparent distress, HT SHIFTER Santi Delgadillo [facility]burgGupbdv5648-75-11 20:40:54 Okay to release information to father Piyush Roca per patient NYA Atkinson [facility]burgIzcpai5924-65-38 20:18:[address] scan and brought to [facility] with RN and trauma team. Continuous cardiac monitoring and serial vital signs monitored by Santi RAMIREZ. Santi Delgadillo RN [place] 623194-11-10 19:58:[address] scan with RN and trauma team. Continuous cardiac monitoring and serial vital signs monitored by Santi RAMIREZ. Santi Delgadillo RN [place] 58995-11-10 18:55:00 Received report from Juliano RAMIREZ [place] 623194-11-10 18:35:54 Report received from EMS. Trauma protocol initiated. Trauma team members at bedside, primary and secondary survey in progress. Pt placed on continuous cardiac monitoring, pulse oximetry, and serial vital signs. Wellington Dorantes RN [place] 623194-11-10 18:31:04 Patient arrived by [facility], tripped over a floor tile and hit the occipital area. Unsure of LOC. Patient received 10mg of reglan and morphine 4mg CROP AND SOIL TECHNICIAN. [facility] Wellington Dorantes [place] [address]-10-31 21:32:31 Patient discharged to home. Patient given [...] gait in no apparent distress. Cameron Posada RN[facility] BeachwoodFxvcdh9238-34-58 18:45:11 Pt arrived ambulatory with complaints of lower back pain, lower abdominal pain, and dysuria since yesterday. Took Tramadol at 2pm Aline Lou [facility]burgFblbas1867-49-25 06:28:23 Patient Care Team <thead> Team Status: Active Member Role Status Dates ENTER NAME IN NOTES OTHER primary care physician Activ nancy MG JR, JR., MD Emergency Provider Active JAN COX Next of Kin Active PIYUSH JUAREZ Emergency Contact Active CHARITY ROCA Guarantor Active [facility]2024-10-09 06:28:23 THANK YOU FOR CHOOSING US FOR YOUR MEDICAL CARE AND IT WAS A PLEASURE TO TAKE CARE OF YOU: PUSHPA RODRIGUEZ, MSN, ROOF BOLTER, DISTILLERY LABORER- DIAGNOSIS: UTI, GASTROENTERITIS PRESCRIPTION: ZOFRAN AND MACROBID PER PRESCRIPTION DETAILS SENT TO [facility]: [place] GIVEN IN ER FOLLOW [...] NO PHYSICIAN MONTSERRAT TERRAZAS MD Work Phone: [address] [facility] [address] AIDEN SOLANO MD Work Phone: [address] [place] [phone] ENTER NAME IN NOTES OTHER Future Procedures [...] NPO except Meds August 31, 2023 6:49pm 2023 6:45pm Insert Peripheral IV Access August [...] is unavailable Patient Instructions <tbody> Otitis Externa, Yeyz-un-Zfyy Allergic Rhinitis, Adult, Ea sy-to-Read Ovarian Cyst, Gpjq-ah-Ldxh Abdominal Pain, Adult, Easy- to-Read Renal Mass Nonspecific Chest Pain, Adul t, Zpti-hz-Qlbl Acetaminophen; Hydrocodone t ablets or capsules Sucralfate tablets Pantoprazole tablets Ciprofloxacin tablets Nonspecific Chest Pain, Adul t, Puan-bc-Yvkj Alprazolam tablets Trazodone Tablets Aspirin Tablets Urinary Tract Infection, Milton lt, Fstj-fa-Npsx Dehydration, Adult, Easy-to- Read Urinary Tract Infection, Milton lt, Ctgs-ns-Wwdb [facility]2024-10-02 20:37:07 Pt given printed and verbal discharge [...] gait, in no apparent distress Renato Doan [facility]burgWxmcss7240-77-98 18:50:37 Nurse Report Report given to renato. Chief complaint, assessment findings, infusion verify and orders reviewed. Plan of care discussed. Lola Reynoso RN Lola Reynoso [facility]burgXzetcf1286-46-40 17:27:35 Pt arrived ambulatory complains of abdominal pain and points to her left upper abdominal. Pt states that last time she had this type of pain it was pancreatitis. Reports pain started at 1300 and reports pain is 9/10 and hurts whenever she eats. Harriett Mejia RNSelect [facility], BeachwoodQtwehw2387-60-53 11:11:13 Chief Complaint Patient presents with Shoulder Pain Left shoulder pain with limited range of motion x 6 months, takes OTC tylenol for the pain as needed but pain is getting worse. 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 Not working currently [facility]2024-06-07 09:19:27 Chief Complaint Patient presents with [facility] F/U [facility] ER follow up with admission on 12/04/2023 for chest pains. She had a stent placed by Dr. Arthur. Jennifer Del Castillo MA II Jennifer Del Castillo MA, [facility]2024-[facility]-28 10:49:31 Chief Complaint Patient presents with Anxiety Follow up on anxiety/depression. She states that it has gotten worse since last visit. She had an appointment with [facility] this morning and it was canceled due to internet outage. Jennifer Del Castillo MA II Jennifer [facility]ñasS[facility] Hospitalbeck Pbaqrf3728-04-04 13:21:02 Chief Complaint Patient presents with [facility] told her she needed to go to a different doctor because they could not give her anything else Marbella Oh LVN [facility]Saint [facility]saazra Timtpn0619-43-22 00:41:45 Pt given printed and verbal discharge [...] no apparent distress. Becky Rios [facility]burgMtnohd9860-90-01 21:25:46 Pt arrived ambulatory but states feeling like she is going to pass out, Pt placed in ED wheelchair. Pt c/o " I have pain in my back on the left side, it mark when I pee, Im nauseous, I feel like Im going to pass out and I have been crapping on myself." Shaneka Atkinson [facility]burgKlmnwn1338-50-27 22:58:41 Pt discharged with diagnosis of RUQ abd pain and chronic abd pain. Printed and verbal instructions reviewed with and given to pt. Prescriptions given x 2. Pt verbalized understanding of teaching, medications, and recommended follow-up. Denies questions or concerns at this time. Pt ambulatory at discharge. Appears in no apparent distress. No ataxia noted. HT SHIFTER Adeline Floyd [facility]burgDbnanz2863-14-49 19:46:03 Pt states sharp pain to the RLQ that started today around noon, pt denies any urinary symptoms, vomiting X 2 HT SHIFTER Razia Yost [place] 641433-09-03 00:14:00 Awake, alert oriented X4, respiratory even [...] noted upon discharge Pt ambulated to the [facility] with steady gait Razia Yost [place] [address]-09-02 23:06:10 Received report from Evy RAMIREZ, assuming care. Brandy Lou [place] [address]-09-02 22:38:[address] scan done. Patient states LQ abdominal pain now 01/14. Maggie Caceres [place] 641433-09-02 22:00:00 POCT test negative. Patient states RLQ abdominal pain improved briefly with IV Morphine administration, then returned at 03/17. Dr Richards informed, and patient medicated as ordered with Fentanyl 75 mcg slow IVP. [place] 683783-09-02 21:00:00 Medicated as per order with Zofran 4 mg slow IVP and Morphine 4 mg slow IVP for RLQ abdominal pain 03/17. [place] 683783-09-02 20:17:52 Pt arrived ambulatory with complaints of RLQ abd pain since yesterday. Pt reports N/V/D. Last took Tylenol at 3pm. Denies dysuria but reports frequency. Hx: Anxiety, Depression, PTSD, Pancreatitis Aline Lou [place] 641433-08-26 01:30:22 Discharged home ambulatory. Home instructions given. John Ventura [place] 641433-08-25 19:32:44 Pt CO of N/V, left lower back pain, painful urination and diarrhea since yesterday, states she was admitted last week for pancreatitis. Pt already promethazine tablets today with no relief. 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 RL: 460 AFC: 16644 Lab Results: Lab Results CBC WITH DIFF [...] POCT PREG TEST DATE COMP. METABOLIC PANEL (99357) NA 139 135 - 145 mmol/L K [...] CONTRAST CBC WITH DIFF COMP. METABOLIC PANEL (12094) LIPASE URINALYSIS POCT TEST Orders Placed This [...] Electronically signed by: Bob Garcia MD 03/02/23121 [facility] - Upriaq4061-98-02 02:22:03 Pt given printed and verbal discharge [...] no apparent distress, Linda Ayala [facility]burgPvjkaz7565-22-99 22:53:36 Pt arrived ambulatory with complaints of [...] from her anxiety. Aline Lou [facility]burgZnavkl6876-26-49 15:59:15 Problem: Pain Goal: Control of pain [...] communication Outcome: Adequate for discharge Beata Lamar [facility]burgWxvggp3882-93-15 00:21:19 Problem: Pain Goal: Control of pain [...] Goal: Effective communication Outcome: Progressing as expected [place] 223773-08-12 16:55:55 Problem: Pain Goal: Control of pain [...] Goal: Effective communication Outcome: Progressing as expected [facility]2023-08-12 03:35:03 Problem: Pain Goal: Control of pain [...] Goal: Effective communication Outcome: Progressing as expected [place] 223773-08-11 19:41:18 Nurse Report Report given to JAMES Gatica. Chief complaint, assessment findings, infusion verify and orders reviewed. Plan of care discussed with both nurses. Stacie Man RN Stacie Man [facility]burgUoxdrm6094-47-03 13:40:01 CC: patient presents to the ER [...] amb without assistance. Appears in no distress. 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 CHEST 1 VW Final Result [...] END OF REPORT Lab Results: reviewed by id Mild leukocytosis, lipase 2048, liver enzymes WNL [...] 0.01 - 0.07 10*3/uL COMP. METABOLIC PANEL (62786) - Abnormal NA 138 135 - 145 [...] INTERPRETATION CBC WITH DIFF COMP. METABOLIC PANEL (44385) LIPASE Orders Placed This Encounter Medications ibuprofen [...] ED Physician in the absence of a distribution systems serviceperson: yes Previous ECG: Previous ECG: Unavailable Interpretation: [...] this a planned re-admission?: No Treatment Team: [facility] [[id number]] Is this patient COVID positive or a patient under investigation (PUI)?: No Electronically signed by: Leeanne Wise NP 02/15/231910 Associated attestation - Bushra Rios DO - 02/16/2023 7:30 AM CDT I was personally available for consultation in the Emergency Department during this encounter and patient evaluation by Leeanne Wise. [facility]
--- NOTE | 2025-04-01 19:21 | ER ---
Nurse's Notes [facility] Name: Charity Hanks Age: 45 yrs Sex: Female : 1980 Arrival Date: 04/01/2025 Time: 18:46 Bed IW10 Private MD: Diagnosis: Chest pain, abdominal pain, tachycardia, AGAINST MEDICAL ADVICE Presentation: 04/01 18:55 Chief complaint: EMS states: CHEST PAIN STARTED AT 12PM TOOK 324 MG ASA 1230 AND NITRO db X 1 AT 1400. ABD PAIN STARTED THIS AM. STILL COMPLAINS OF CHEST PAIN. EMS GAVE NITRO X 1 AND 10 MG REGLAN FOR NAUSEA. 18:57 Coronavirus screen: Client denies travel out of the [place] in the last 14 days. At this db time, the client does not indicate any symptoms associated with coronavirus-19. Ebola Screen: Patient negative for fever greater than or equal to 101.5 degrees Fahrenheit, and additional compatible Ebola Virus Disease symptoms Patient denies exposure to infectious person. Patient denies travel to an Ebola-affected area in the 21 days before illness onset. No symptoms or risks identified at this time. Initial Sepsis Screen: Does the patient meet any 2 criteria? No. Patient's initial sepsis screen is negative. Does the patient have a suspected source of infection? No. Patient's initial sepsis screen is negative. Risk Assessment: Do you want to hurt yourself or someone else? Patient reports no desire to harm self or others. Onset of symptoms was April 01, 2025 at 12:00. Care prior to arrival: Medication(s) given: Nitroglycerin, 0.4 mg SL x 2, REGLAN 10 MG IV initiated. 20 GA, in the left BREAST Glucose check: 138. 18:57 Method Of Arrival: [facility] db 18:57 Acuity: CARLOS 2 db Triage Assessment: 18:59 General: Appears in no apparent distress. comfortable, Behavior is calm, cooperative. db Pain: Complains of pain in chest and abdomen. Neuro: Level of Consciousness is awake, alert, obeys commands, Oriented to person, place, time, situation. Cardiovascular: Reports chest pain. Respiratory: Airway is patent Respiratory effort is even, unlabored, Respiratory pattern is regular, symmetrical. GI:. OVERNIGHT ASSOCIATE: 20:05 unknown kb4 Historical: - Allergies: 18:59 No Known Allergies; db - PMHx: 18:59 Hypertensive disorder; depressive disorder; Anxiety; Pancreatitis; PTSD; Myocardial db infarction; - PSHx: 18:59 cardiac stent; Tonsillectomy; Cholecystectomy; db - Immunization history:: Adult Immunizations unknown. - Infectious Disease History:: Denies. - Social history:: Smoking status: Patient denies any tobacco usage or history of. Screenin:[address] [facility] ED Fall Risk Assessment (Adult) History of falling in the last 3 months, kb4 including since admission No falls in past 3 months (0 pts) Confusion or Disorientation No (0 pts) Intoxicated or Sedated No (0 pts) Impaired Gait No (0 pts) Mobility Assist Device Used No (0 pt) Altered Elimination No (0 pt) Score/Fall Risk Level 0 - 2 = Low Risk. Abuse screen: Denies threats or abuse. Denies injuries from another. Nutritional screening: No deficits noted. Tuberculosis screening: No symptoms or risk factors identified. Assessment: 19:15 Reassessment: pt refused 2nd IV acsess for blood work, pt stated " i am not going to kb4 wait for test results when i want pain medication now, yas doctors treat me like shit" , i educated pt on need for diagnostic testing, pt refused and requested to leave, Dr. Chahal notified. informed discharge. 19:15 Pain: Pain does not radiate. Pain began 30 min ago. kb4 Vital Signs: 18:57 BP 132 / 73; Pulse 122; Resp 20; Temp 98.3; Pulse Ox 98% on R/A; db ED Course: 18:49 Patient arrived in ED. bc6 18:51 Christina Lozano, RN is Primary Nurse. db 18:56 Maintain EMS IV. Dressing intact. Good blood return noted. Site clean \\T\\ dry. Gauge \\T\\ db site: 20 G LEFT BREAST. 18:59 Triage completed. db 18:59 Arm band placed on Patient placed in an exam room. db 19:04 Johny Chahal MD is Attending Physician. sp3 19:10 No provider procedures requiring assistance completed. Inserted saline lock: 20 gauge kb4 in left ,using aseptic technique. chest by ems IV discontinued, intact, bleeding controlled, No redness/swelling at site. Pressure dressing applied. Patient maintains SpO2 saturation greater than 95% on room air. 19:10 Patient has correct armband on for positive identification. Provided Education on: kb4 informed d/c. Client placed on continuous cardiac and pulse oximetry monitoring. NIBP monitoring applied. 19:58 Hawa Gomez, RN is Primary Nurse. kb4 Administered Medications: 20:06 CANCELLED (Physician Discretion): ns 0.9% 1000 ml IV at 1000 ml once; to be given as a kb4 bolus over 60 minutes Medication: 20:05 VIS not applicable for this client. kb4 Outcome: 19:10 Discharged to home ambulatory, kb4 19:10 Condition: stable 19:10 Discharge instructions given to patient, Instructed on informed d/c 19:21 Discharge ordered by . sp3 20:07 Patient left the ED. kb4 Signatures: Johny Chahal MD MD sp3 Christina Lozano, RN RN Britney Santiago 6 Hawa Gomez, RN RN kb4 Corrections: (The following items were deleted from the chart) 20:03 19:15 Reassessment: pt refused 2nd IV acsess for blood work, pt stated " i am not going kb4 to wait for test results when i want pain medication now, yalls doctors treat me like shit" , i educated pt on need for diagnostic testing, pt refused and requested to leave, Dr. Chahal notified. kb4
--- NOTE | 2025-04-01 19:21 | EDPHYS ---
Physician Documentation [facility] Name: Charity Hanks Age: 45 yrs Sex: Female : 1980 Arrival Date: 04/01/2025 Time: 18:46 Bed IW10 Private MD: ED Physician Johny Chahal HPI: 04/01 19:16 This 45 yrs old Female presents to ER via EMS with complaints of Chest Pain, Abdominal sp3 Pain. 19:16 45-year-old female with a history of CAD, prior SD, pancreatitis, PTSD now presents to [facility] the ED via EMS for recurrent chest pain, cough epigastric pain. Patient has had multiple visits here for similar symptoms. She denies any significant deviation from her pattern. She denies any fever or back pain, lower abdominal pain, vomiting, diarrhea, production on cough, or any other signs or symptoms on ROS at this time. She states symptoms have been going on for at least 24 hours.. COMPLAINT COORDINATOR: 20:05 unknown kb4 Historical: - Allergies: 18:59 No Known Allergies; db - PMHx: 18:59 Hypertensive disorder; depressive disorder; Anxiety; Pancreatitis; PTSD; Myocardial db infarction; - PSHx: 18:59 cardiac stent; Tonsillectomy; Cholecystectomy; db - Immunization history:: Adult Immunizations unknown. - Infectious Disease History:: Denies. - Social history:: Smoking status: Patient denies any tobacco usage or history of. ROS: 19:18 Constitutional: Negative for fever, chills, and weight loss, Eyes: Negative for injury, sp3 pain, redness, and discharge, ENT: Negative for injury, pain, and discharge, Neck: Negative for injury, pain, and swelling, Respiratory: Negative for shortness of breath, cough, wheezing, and pleuritic chest pain, Back: Negative for injury and pain, MS/Extremity: Negative for injury and deformity, Skin: Negative for injury, rash, and discoloration, Neuro: Negative for headache, weakness, numbness, tingling, and seizure, Psych: Negative for depression, anxiety, suicide ideation, homicidal ideation, and hallucinations, Allergy/Immunology: Negative for hives, rash, and allergies, Endocrine: Negative for neck swelling, polydipsia, polyuria, polyphagia, and marked weight changes, 19:18 All other systems are negative, Exam: 19:18 Constitutional: This is a well developed, well nourished patient who is awake, alert, sp3 and in no acute distress. Head/Face: Normocephalic, atraumatic. Eyes: Pupils equal round and reactive to light, extra-ocular motions intact. Lids and lashes normal. Conjunctiva and sclera are non-icteric and not injected. Cornea within normal limits. Periorbital areas with no swelling, redness, or edema. ENT: Nares patent. No nasal discharge, no septal abnormalities noted. External auditory canals are clear. Oropharynx with no redness, swelling, or masses, exudates, or evidence of obstruction, uvula midline. Mucous membranes moist. Neck: Trachea midline, no thyromegaly or masses palpated, and no cervical lymphadenopathy. Supple, full range of motion without nuchal rigidity, or vertebral point tenderness. No Meningismus. Chest/axilla: Normal chest wall appearance and motion. Nontender with no deformity. No lesions are appreciated. Respiratory: Lungs have equal breath sounds bilaterally, clear to auscultation and percussion. No rales, rhonchi or wheezes noted. No increased work of breathing, no retractions or nasal flaring. Abdomen/GI: Soft, non-tender, with normal bowel sounds. No distension or tympany. No guarding or rebound. No evidence of tenderness throughout. Back: No spinal tenderness. No costovertebral tenderness. Full range of motion. Skin: Warm, dry with normal turgor. Normal color with no rashes, no lesions, and no evidence of cellulitis. MS/ Extremity: Pulses equal, no cyanosis. Neurovascular intact. Full, normal range of motion. Neuro: Awake and alert, GCS 15, oriented to person, place, time, and situation. Cranial nerves II-XII grossly intact. Motor strength 5/5 in all extremities. Sensory grossly intact. Cerebellar exam normal. Normal gait. Psych: Awake, alert, with orientation to person, place and time. Behavior, mood, and affect are within normal limits. 19:18 Cardiovascular: Rate: tachycardic, 19:22 ECG was reviewed by the Attending Physician. EKG demonstrates sinus tachycardia at 119 sp3 bpm with normal intervals, normal QRS, leftward axis and nonspecific diffuse ST/T changes without evidence of acute ischemia. Vital Signs: 18:57 BP 132 / 73; Pulse 122; Resp 20; Temp 98.3; Pulse Ox 98% on R/A; db MDM: 19:05 Medical Screening Exam initiated sp3 19:19 Data reviewed: vital signs, nurses notes, lab test result(s), EKG. ED course: sp3 45-year-old female with PMH above now with recurrent chest and abdominal pain. I have advised patient we will do full workup including EKG, labs and IV fluids and then add pain medication if indicated or if anything was abnormal. Patient is demanding narcotic pain medication immediately and states she is leaving and does not want a workup unless she gets her pain medication first. Her EKG demonstrates sinus tachycardia at 119 bpm. Blood pressure is normal. Patient is afebrile and pulse oxygenation is normal. I have advised patient to stay however she wants to leave so she will be leaving AGAINST MEDICAL ADVICE. She knows she may return here at any time if she changes her mind. She understands the risk of , disability, pain and suffering, and worsening condition. She is of sound mind and articulates that her pain is her main concern.. 04/01 19:11 Order name: EKG; Complete Time: 19:12 sp3 Administered Medications: 20:06 CANCELLED (Physician Discretion): ns 0.9% 1000 ml IV at 1000 ml once; to be given as a kb4 bolus over 60 minutes Disposition Summary: 04/01/25 19:21 Discharge Ordered Condition: Stable sp3 Diagnosis - Chest pain, abdominal pain, tachycardia, AGAINST MEDICAL ADVICE sp3 Followup: sp3 - With: Private Physician - When: Upon discharge from the Emergency Department - Reason: Continuance of care Discharge Instructions: - Discharge Summary Sheet sp3 Forms: - Medication Reconciliation Form sp3 - Antibiotic Education sp3 - Prescription Opioid Use sp3 - Patient Portal Instructions sp3 - Leadership Thank You Letter sp3 Signatures: Dispatcher [employer] EDMS Johny Chahal MD MD sp3 Christina Lozano RN RN Hawa Bazan RN kb4 Corrections: (The following items were deleted from the chart) 20:06 19:11 Cardiac monitoring ordered. sp3 kb4 20:06 19:11 EKG - Nurse/Tech ordered. sp3 kb4 20:06 19:11 IV Saline Lock ordered. sp3 kb4 20:06 19:11 Labs collected and sent ordered. sp3 kb4 : 19:11 NS 0.9% IV 1000 ml IV at 1000 ml once; to be given as a bolus over 60 minutes kb4 ordered. sp3 19:11 O2 Sat Monitoring ordered. sp3 kb4
[2025-04-01 20:16] VITALS: BP 132/73; TEMP 98.3; O2SAT 98
== END 2025-04-01 20:07 | disposition home or self-care (01) ==
LOC: ER 18:46
DX: R07.9 Chest pain, unspecified (principal); R10.13 Epigastric pain; R00.0 Tachycardia, unspecified; I10 Essential (primary) hypertension; Z95.818 Presence of other cardiac implants and grafts
CPT/HCPCS: 93005; 99284

== ENCOUNTER 2025-04-04 18:40 | Emergency (ER) | payer OTHER ==
--- NOTE | 2025-04-04 18:46 | ER ---
Nurse's Notes [facility] Name: Charity Hanks Age: 45 yrs Sex: Female : 1980 Arrival Date: 04/04/2025 Time: 18:40 Bed IW1 Private MD: Diagnosis: Presentation: 04/04 18:43 Chief complaint: EMS states: Pt reports RLQ abdominal pain for the past 3 days. jb4 18:43 Method Of Arrival: [facility] jb4 Assessment: 18:44 Reassessment: Pt states " I don't want to be seen. I will not be seen by that [facility] doctor." Pt left ED. ED Course: 18:42 Patient arrived in ED. al6 Administered Medications: No medications were administered Outcome: 18:44 Eloped from waiting room, before seeing physician Time discovered patient gone: jb4 April 04, 2025 at 18:44 18:45 Patient left the ED. jb4 Signatures: Herminio Sauer RN RN jb4 Hafsa Watkins al6
--- OUTSIDE RECORDS SUMMARY | 2025-04-04 19:16 | XMS REPORT | Continuity of Care Document ---
Author Name Unknown Address [address] [facility]. [address] [place] [address] [facility] Address [address] [facility] [address] [place] [address] Support Name Relationship Address Phone RACHEL CASH Father Unknown Unavailable PHYSICIAN, NO Primary Care Physician Unknown Unav ailable MD MORA POLLOCK A Emergency Provider [address] [place] [address] JAN COX natural parent [address] [address] MD SHERIDAN MCMANUS Emergency Provider [facility], [place] [address] CHARITY ROCA Guarantor [address] [place] [address] MD RIDDH[place] [address] MD AN IRIZARRY Emergency Provider [facility], [place] [address] MD AIDEN SOLANO A Primary Care Physician [address] [facility] 3 [place] [address] OTHER, ENTER NAME IN NOTES Primary Care Physician Unknown Unavailable MD Arelis Kern Emergency Provider [address] [place] [address] MD SHAN BUSCH Attending Provider [address] [place] [address] PIYUSH JUAREZ natural parent [address] [place] [address] Leyda Villa Mother Unknown Unavailable Rachel Cox Father [address] [address] [place] [address] one else per patient, No Emergency Contact Unknown Unavailable Rachel Cox [address] [address] [place] [address] 1 Personal Relationship Unknown Unavai lable Unavailable Personal Relationship Unknown Unavai lable MD TAVARES MG JR, JR. Emergency Provider [address] [place] [address] MD DIONI TYSON Emergency Provider [id number] [place] [address] SOLEDAD DEL TORO [facility] Attending Provider [address] [place] [address] Unavailable JAN COX family member [address] [place] [address] DO RUBEN RYAN Emergency Provider [address] [place] [address] Unavailable CATANESMARTHA DO TY Emergency Provider [address] [place] [address] Rachel Cox [address] [place] [address] PATIENT, NO ONE ELSE PER Personal Relationship Unknown Unavailable Care Team Providers Care Sales Support Technician Name Role Phone OTHER, ENTER NAME IN NOTES Primary Care Physicia n Unavailable TY ZAMBRANO Attending Clinician Unavailable Roberto Richards MD Attending Clinician [phone] GISELLE OSORIO Attending Clinician Unavailable SHERIDAN MCMANUS Attending Clinician UnavailTHAI Palmer Attending Clinician Unavail able THAI GALO Attending Clinician Unavail able Isael RAMIREZ, Shelley Ayala Attending Clinician ANTHONY ROMAN Attending Clinician Unavailable RYAN MIRANDA Attending Clinician Unavailable RAMIREZ CALDERON Attending Clinician Unavailab VAHE Portillo Attending Clinician Unavailable CHRISTINA PAGE Attending Clinician Unavailable CYNTHIA ROMEO Attending Clinician Unavailable RIDDHI MONTES Attending Clinician Unavailable NAY ALMONTE Attending Clinician Unavailable NEO ALBARRAN Attending Clinician UnaBOB Jackson Attending Clinician Unavailable BOB GARCIA Attending Clinician Unavailable Josefa VILLANUEVA, Kiran Nino Attending Clinician [phone] ARELIS KERN Attending Clinician Unavailab le Doctor Unassigned, Balmorhea Attending Clinician U ROEBRTO Leon Attending Clinician Unavailable ROBERTO RICHARDS Attending Clinician Unavailable CATHY STRICKLAND Attending Clinician Unavailable MD BEHZAD Attending Clinician Unavailab Piper Jackson LVN Attending Clinician [phone] ALEXX KWOK Attending Clinician UnavailTATIANNA Garcia Attending Clinician Unavailable SARAH SHULTZ Attending Clinician Unavailable BUSHRA RIOS Attending Clinician Unavailab BUSHRA Bustamante Attending Clinician Unavailab Bob Cuadra MD Attending Clinician [phone] KAUR SANDRA Attending Clinician Unavailab KAUR Kessler Attending Clinician Unavailab Zay Shipman MD Attending Clinician [phone] Kaur Sandra MD Attending Clinician [phone] Elliott Kwok MD Attending Clinician [phone] Dane Jurado MD Attending Clinician +[phone] FLORINDA REYES Attending Clinician Unavailable JUANJOSE BARKER Attending Clinician Unavailable JUANJOSE BARKER Attending Clinician Unavailable Juanjose Barker MD Attending Clinician [phone] SELENA DEL TORO Attending Clinician Unavailable CONRADO SMITH Attending Clinician Unavailable JÚNIOR FARRELL Attending Clinician Unavailable Saleem EDWARD Attending Clinician Unavailable Saleem EDWARD Attending Clinician Unavailable Saleem Perez Attending Clinician [phone] RADIOLOGY, DEPT Attending Clinician Unavailable SANDY GARCIA Attending Clinician Unavailable SANDY GARCIA Attending Clinician Unavailable Sandy Walker Attending Clinician [phone] RAFAL WRIGHT Attending Clinician Unavailable Rafal Wright PA-C Attending Clinician + [phone] Attending Clinician Unavailable Tammy Roy MD Attending Clinician + FARTUN GILLESPIE Attending Clinician Unavailable TAVARES MG JR Attending Clinician UnaJacque Lazo NP Attending Clinician [phone] COSMO Attending Clinician Unavailable SHAN BUSCH Attending Clinician Unavailable RIDDHI MYLES Attending Clinician UnavailAN Garcia Attending Clinician Unavailable KLAUDIA NARVAEZ Attending Clinician Unavailable Klaudia Narvaez DO Attending Clinician [phone] APPLE PADGETT Attending Clinician Unavailable Apple Elam Attending Clinician [phone] ZAY MONTERO Attending Clinician Unavailable Leeanne Wise NP Attending Clinician [phone] Zay Montero MD Attending Clinician [phone] FELTON Attending Clinician Unavailable MELIDA LONGORIA Attending Clinician Unavailable Melida Longoria MD Attending Clinician +[phone] WIL MCQUEEN Attending Clinician Unavailable Wil Joseph Attending Clinician [phone] APPLE WANG Attending Clinician UnavailApple Stout Attending Clinician [phone] Doctor Unassigned, Balmorhea Attending Clinician U navailable CEM CHOI Attending Clinician Unavailable Cem Choi MD Attending Clinician [phone] Shelley Rosas RN Attending Clinician [phone] Bal Cuevas Attending Clinician + [phone] BAL HASSAN Attending Clinician Unavailable Tremaine Jon Attending Clinician [phone] TREMAINE BECERRA Attending Clinician Unavailable LEEANNE WISE Attending Clinician Unavailable MORA POLLOCK Attending Clinician Unavailable Best Rodríguez Attending Clinician [phone] BEST TAYLOR Attending Clinician Unavailable Marbella Rizo RN Attending Clinician Unavailab bailee VILLANUEVA, Abdias Attending Clinician ABDIAS ROBERTSON Attending Clinician Unavailable Silver RAMIREZ, Kamryn Ayala Attending Clinician Unavail able SINCERE FRANK Attending [...] Admitting Clinician Unavailab ALEXX Wilcox Admitting Clinician Unavailabl e BOB GACRIA Admitting Clinician Unavailable ELLIOTT KWOK Admitting Clinician [...] Clinician Unavailable Zay Montero MD Admitting Clinician [phone] FELTON Admitting Clinician Unavailable MELIDA LONGORIA Admitting Clinician Unavailable WIL MCQUEEN Admitting Clinician Unavailable APPLE WANG Admitting Clinician Unavaila CEM Gomez Admitting Clinician Unavailable TREMAINE BECERRA Admitting Clinician Unavailable LEEANNE WISE Admitting Clinician Unavailable Saleem EDWARD Admitting Clinician Unavailable BEST TAYLOR Admitting Clinician Unavailable ABDIAS ROBERTSON Admitting Clinician Unavailable Payers Payer Name Policy Type Policy Number Effective Date Expirati on Date Source SILVIA 5 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 94 9 [id number] 2025 00:00:00 RAMSES W/ KELLEE BRITTON [id number] 2025 00:00:00 HIM BCBS BLUE ADVANTAGE HMO [id number] 2020 00:00:00 Problems Condition Name Condition Details Condition Category Status Onset Date Resolution Date Last Treatment Date Treating Clinician Comments Source Hypokalemi a Hypokalemi a Disease Active 03-04 00:00: 00 [facility] Gastroesop hageal reflux disease without esophagiti s Gastroesop hageal reflux disease without esophagiti s Disease Active 03-04 00:00: 00 [facility] Enteritis Enteritis Disease Active 03-04 00:00: 00 [facility] 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 Disease Active 01-07 00:00: 00 Kellee pinedo 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 01-07 00:00: 00 Kellee pinedo Coronary artery disease involving [place] coronary artery of [place] heart with angina pectoris Coronary artery disease involving [place] coronary artery of [place] heart with angina pectoris Disease Active 11-01 00:00: 00 [facility] Dyslipidem ia Dyslipidem ia Disease Active 11-01 00:00: 00 [facility] Generalize d abdominal pain Generalize d abdominal pain Disease Active 2023-07 0- 00:00: 00 [facility] Coronary artery disease Coronary [...] level Disease Active 2020-07 0-02 00:00: 00 [facility] Cigarette smoker Cigarette smoker Disease Active 2020-07 0-02 00:00: 00 [facility] Family history of early CAD Family history of early CAD Disease Active 2020-07 0- 00:00: 00 [facility] Essential hypertensi on Essential hypertensi on Disease Active 2020-07 0-02 00:00: 00 [facility] Elevated brain natriureti c peptide (BNP) level Elevated brain natriureti c peptide (BNP) level Disease Active 2020-07 0-02 00:00: 00 [facility] Snores Snores Disease Active 2020-07 0-02 00:00: 00 [facility] Morbid obesity with body mass index of 40.0-49.9 Morbid obesity with body mass index of 40.0-49.9 Disease Active 2020-07 0-01 00:00: 00 [facility] Bilateral flank pain Problem [facility] Chest wall pain [facility] Nause[facility] Problem [facility] Hematuria Problem [facility]al colic [facility] Abdominal pain Problem [facility] Acute coronary syndrome without high troponin Problem [facility] Adrenal mass Problem [facility] Adren[facility] nodule Problem [facility] Encounter for counseling regarding advance directives Problem [facility] Allergic rhinitis Problem [facility] Angina pectoris Problem [facility] Anxiety and depression Problem [facility] Chest pain Problem [facility] Gastroente ritis Problem [facility] Malaise Problem [facility] Otitis externa of left ear Problem [facility] Cyst of ovary Problem [facility] Anxiety Problem [facility] Epigastric pain Problem [facility] Left against medical advice Problem [facility] Post traumatic stress disorder (PTSD) Problem [facility] Tobacco abuse Problem [facility] Urinary tract infection Problem [facility] No known active problems No known active problems Disease [facility] Allergies, Adverse Reactions, Alerts Allergy Name Allergy Type Status Severity Reaction(s) Onset Date Inactive Date Treating Clinician Comments Source NO KNOWN ALLERGIE S Drug Class Active [facility] Social History Social Habit Start Date Stop Date Quantity Comments Source Gender identity [facility] ASSERTION Possible [facility] History of Occupation [facility] Sexual orientation Saleem Buckley - External Alcoholic beverage intake 2025-01-07 00:00:00 2025-01-07 00:00:00 Current drinker of alcohol (finding) Kellee Buckley - External Tobacco use and exposure 2024-11-26 00:00:00 2024-11-26 00:00:00 Former smokeless tobacco user [facility] History of tobacco use 2024-11-12 00:00:00 Passive smoker [facility] History of Social function 2023-10-28 00:00:00 2023-10-28 00:00:00 Kellee Buckley - External Alcohol Comment 2023-10-28 00:00:00 2023-10-28 00:00:00 rarely Kellee Buckley - External Cigarettes smoked current (pack per day) - Reported 2023-10-28 00:00:00 2023-10-28 00:00:00 Kellee Leiva External Cigarette pack-years 2023-10-28 00:00:00 2023-10-28 00:00:00 Kellee Buckley - External Sex 2023-07-17 22:17:29 2023-07-17 22:17:29 Female (finding) Kellee Ariasnicolbeck Davies Tobacco Comment 2023-02-15 00:00:00 2023-02-15 00:00:00 In the process of quitting. Now smokes 5 cigarettes/ day from 2 packs per day [facility] Exposure to SARS-CoV-2 (event) 2021-12-30 00:00:00 2022-01-09 16:34:00 Unable to assess [facility] Education 2021-04-07 00:00:00 2021-04-07 00:00:00 13 [facility] Sex assigned at 1980 00:00:00 1980 00:00:00 Kellee Ariasnicolbeck Cali Davies Smoking Status Start Date Stop Date Source Ex-smoker 2024-11-26 00:00:00 2024-11-26 00[facility]00[facility] 2023-10-28 00:00:00 Kellee Ariasnicolbeck Cali Davies Unknown if ever smoked [facility] Medications Ordered Medication Name Filled Medication Name Start Date Stop Date Current Medication? Ordering Clinician Indication Dosage Frequency Signature (SIG) Comments Components Source acetaminoph en (TYLENOL) tablet 650 mg 03-25 23:30: 00 03-26 11:29 :00 Yes 650mg 650 mg, Oral, ONCE, 1 dose, On Sat03/25/25 at 1830, ROSELYN [facility] pantoprazol e (PROTONIX) 40 mg in NaCl 0.9% (NS) 10 mL syringe 03-25 22:30: 00 03-25 22:52 :00 No 40mg 40 mg, Slow IV Push, Administer over 2 Minutes, ONCE, 1 dose, On Sat03/25/25 at 1730, Routine [facility] maalox/diph enhydrAMINE :lidocaine2 %viscous 1:1:1: suspension (COMPOUNDED ) 03-25 22:30: 00 03-25 22:54 :00 No 15mL 15 mL, Oral, ONCE, 1 dose, On Sat03/25/25 at 1730, Routine [facility] metoclopram tracy HCl (REGLAN) injection 10 mg 03-25 22:30: 00 03-25 22:49 :00 No 10mg 10 mg, Slow IV Push, ONCE, 1 dose, On Sat03/25/25 at 1730, ROSELYN [facility] enoxaparin (LOVENOX) injection 40 mg 03-08 22:00: 00 03-08 18:20 :13 No 40mg 40 mg, Subcutaneo us, DAILY AT 1700, First dose on Sat03/08/25 at 1700, Until Discontinu ed, Routine [facility] aspirin chewable tablet 81 mg aspirin chewable tablet 81 mg 03-08 14:00: 00 03-08 18:20 :13 Yes 81mg 81 mg, Oral, DAILY, First dose on Sat03/08/25 at 0900, Until Discontinu ed, Routine [facility] KCL (KLOR-CON M20) tablet 40 mEq KCL (KLOR-CON M20) tablet 40 mEq 03-08 13:30: 00 03-08 13:17 :00 Yes 40meq 40 mEq, Oral, ONCE, 1 dose, On Sat03/08/25 at 0830, Routine [facility] cloNIDine (CATAPRES) tablet 0.1 mg cloNIDine (CATAPRES) tablet 0.1 mg 03-08 05:45: 00 03-08 05:03 :00 Yes .1mg 0.1 mg, Oral, ONCE, 1 dose, On Sat03/08/25 at 0045, Routine [facility] hydralAZINE (APRESOLINE ) injection 10 mg 03-08 05:45: 00 03-08 18:20 :13 No 10mg 10 mg, Slow IV Push, Q4HPRN, Starting on Sat03/08/25 at 0045, Until Sat03/08/25 at 1320, Routine, DBP=>100; SBP=>160 [facility] HYDROmorpho ne (DILAUDID) injection 1 mg HYDROmorpho ne (DILAUDID) injection 1 mg 03-08 05:45: 00 03-08 05:04 :00 Yes 1mg 1 mg, Slow IV Push, ONCE, 1 dose, On Sat03/08/25 at 0045, Routine, Is this medication approved by a Faculty level provider? Yes, [employer] team member approving Restricted medication : ALEXX KWOK [facility] HYDROcodone -acetaminop hen (NORCO 5) 5-325 mg tablet 1 tablet HYDROcodone -acetaminop hen (NORCO 5) 5-325 mg tablet 1 tablet 03-08 00:21: 21 03-08 18:20 :13 Yes 1{tbl} 1 tablet, Oral, Q6HPRN, Starting on Sat03/07/25 at 1921, Until Sat03/08/25 at 1320, Routine, Pain (scale 7-10) [facility] nitroglycer in (NITROSTAT) sublingual tablet 0.4 mg 03-07 22:12: 58 03-08 18:20 :13 No .4mg 0.4 mg, Sublingual , Q5MIN PRN, Starting on Sat03/07/25 at 1712, Until Sat03/08/25 at 1320, Routine, Chest pain [facility] acetaminoph en (TYLENOL) tablet 650 mg 03-07 22:10: 16 03-08 18:20 :12 No 650mg 650 mg, Oral, Q6HPRN, Starting on Sat03/07/25 at 1710, Until Sat03/08/25 at 1320, Routine, Pain (scale 1-3) [facility] morpHINE (4 mg/mL) injection 4 mg 03-07 21:45: 00 03-07 21:44 :00 No 4mg 4 mg, Slow IV Push, ONCE, 1 dose, On Sat03/07/25 at 1645, STAT [facility] nitroglycer in (NITROSTAT) sublingual tablet 0.4 mg 03-07 21:45: 00 03-07 21:38 :00 No .4mg 0.4 mg, Sublingual , ONCE, 1 dose, On Sat03/07/25 at 1645, ROSELYN [facility] aspirin tablet 325 mg 03-07 21:45: 00 03-07 21:38 :00 No 325mg 325 mg, Oral, ONCE, 1 dose, On Sat03/07/25 at 1645, STAT [facility] ketorolac (TORADOL) injection 15 mg 03-07 21:00: 00 03-07 20:12 :00 No 15mg 15 mg, Slow IV Push, ONCE, 1 dose, On Sat03/07/25 at 1600, Routine [facility] morpHINE (4 mg/mL) injection 4 mg 03-07 20:15: 00 03-07 20:13 :00 No 4mg 4 mg, Slow IV Push, ONCE, 1 dose, On Sat03/07/25 at 1515, STAT [facility] NaCl 0.9% (NS) bolus infusion 1,000 mL 03-07 20:00: 00 03-07 21:29 :00 No 1000mL at 999 mL/hr, 1,000 mL, IV Infusion, ONCE, 1 dose, On Sat03/07/25 at 1500, ROSELYN [facility] ondansetron (ZOFRAN (PF)) injection 4 mg 03-07 19:15: 00 03-07 19:42 :00 No 4mg 4 mg, Slow IV Push, ONCE, 1 dose, On Sat03/07/25 at 1415, Administer over 2-5 Minutes, 2 mL [facility] maalox/diph enhydrAMINE :lidocaine2 %viscous 1:1:1: suspension (COMPOUNDED ) 03-07 19:15: 00 03-07 19:27 :00 No 15mL 15 mL, Oral, ONCE, 1 dose, On Sat03/07/25 at 1415, Routine [facility] famotidine (PEPCID (PF)) 20 mg in NaCl 0.9% (NS) 5 mL IV push 03-07 19:15: 00 03-07 19:44 :00 No 20mg 20 mg, Intravenou s, ONCE, 1 dose, On [place] 03/07/25 at 1415, Administer over 2 Minutes, 5 mL [facility] dicyclomine (BENTYL) injection 20 mg 03-05 02:00: 00 03-05 13:59 :00 Yes 20mg 20 mg, Intramuscu lar, ONCE, 1 dose, On [place] 03/04/25 at 2100, Routine [facility] famotidine (PEPCID (PF)) 20 mg in NaCl 0.9% (NS) 5 mL IV push 03-05 00:30: 00 03-05 00:45 :00 No 20mg 20 mg, Intravenou s, ONCE, 1 dose, On Sat03/04/25 at 1930, Administer over 2 Minutes, 5 mL [facility] maalox/diph enhydrAMINE :lidocaine2 %viscous 1:1:1: suspension (COMPOUNDED ) 03-05 00:30: 00 03-05 00:42 :00 No 15mL 15 mL, Oral, ONCE, 1 dose, On [facility] 03/04/25 at 1930, Routine [facility] KCL (KLOR-CON M20) tablet 40 mEq 03-05 00:30: 00 03-05 00:43 :00 No 40meq 40 mEq, Oral, ONCE, 1 dose, On [facility] 03/04/25 at 1930, Routine [facility] iopamidol (ISOVUE 370-500 mL) injection 83 mL 03-04 23:21: 00 03-04 23:30 :00 No [id number] 83mL 83 mL, Intravenou s, ONCE, 1 dose, On [facility] 03/04/25 at 1830, Routine [facility] NaCl 0.9% (NS) bolus infusion 1,000 mL 03-04 22:45: 00 03-05 00:46 :00 No 1000mL at 999 mL/hr, 1,000 mL, IV Infusion, ONCE, 1 dose, On [place] 03/04/25 at 1745, ROSELYN [facility] ondansetron (ZOFRAN (PF)) injection 4 mg 03-04 22:00: 00 03-04 22:09 :00 No 4mg 4 mg, Slow IV Push, ONCE, 1 dose, On [place] 03/04/25 at 1700, Administer over 2-5 Minutes, 2 mL [facility] morpHINE (4 mg/mL) injection 4 mg 03-04 22:00: 00 03-04 22:07 :00 No 4mg 4 mg, Slow IV Push, ONCE, 1 dose, On [place] 03/04/25 at 1700, STAT [facility] ondansetron 4 mg disintegrat ing tablet 03-04 00:00: 00 Yes [id number] 4mg Take 1 tablet by mouth every 8 hours as needed for Nausea and Vomiting (N/V). [facility] dicyclomine 20 mg tablet 03-04 00:00: 00 Yes [id number] 20mg Take 1 tablet by mouth every 6 hours as needed for Abdominal pain. [facility] omeprazole 40 mg capsule 03-04 00:00: 00 04-04 04:59 :00 Yes [id number] 40mg Take 1 capsule by mouth in the morning. [facility] Sertraline HCl 200 MG oral Capsule 01-07 15:07: 38 Yes 1{capsu le} QD Take 1 capsule by mouth daily. Kellee ipnedo Quetiapine Fumarate 100 MG oral Tablet 01-07 00:00: 00 Yes [id number] 100mg QD Take 1 tablet (100 mg total) by mouth nightly. Kellee pinedo Quetiapine Fumarate 50 MG oral Tablet 13 00:00: 00 01-07 00:00 :00 No 50mg Take 1 tablet (50 mg total) by mouth at bedtime. Kellee pinedo Trazodone HCl 100 MG oral Tablet -11 00:00: 00 01-07 00:00 :00 No [id number] 100mg QD Take 1 tablet (100 mg total) by mouth nightly. Kellee pinedo Zolpidem Tartrate (Ambien) 10 MG oral Tablet 12-16 00:00: 00 01-07 00:00 :00 No [id number] 10mg QD Take 1 tablet (10 mg total) by mouth nightly as needed for sleep. Kellee pinedo ketorolac (TORADOL) injection 15 mg 12-14 22:15: 00 12-14 21:34 :00 No 15mg 15 mg, Slow IV Push, ONCE, 1 dose, On Sat12/14/24 at 1715, Routine [facility] iopamidol (ISOVUE 370-500 mL) injection 85 mL 12-14 21:30: 00 12-14 21:30 :00 No [id number] 85mL 85 mL, Intravenou s, ONCE, 1 dose, On Sat12/14/24 at 1630, Routine [facility] acetaminoph en (OFIRMEV) IV piggyback 1,000 mg 12-14 19:45: 00 12-14 19:22 :00 No 1000mg 1,000 mg, IV Piggyback, at 400 mL/hr Administer over 15 Minutes, ONCE, 1 dose, On Sat12/14/24 at 1445, Routine, Is the patient strict NPO and unable to tolerate oral medication s? No [facility] methocarbam oL (ROBAXIN) injection 1,000 mg 12-14 19:45: 00 12-14 19:11 :00 No 1000mg 1,000 mg, Slow IV Push, Administer over 3-5 Minutes, ONCE, 1 dose, On Sat12/14/24 at 1445, Routine [facility] ondansetron (ZOFRAN (PF)) injection 4 mg 12-14 19:00: 00 12-14 19:10 :00 No 4mg 4 mg, Slow IV Push, ONCE, 1 dose, On Sat12/14/24 at 1400, Administer over 2-5 Minutes, 2 mL [facility] Meloxicam (Meloxicam 15 Mg) 15 Mg TAB Meloxicam (Meloxicam 15 Mg) 15 Mg TAB 12-10 21:17: 00 Yes 1{tbl} [facility] Tizanidine Hcl (Zanaflex 4 Mg*) 4 Mg TAB Tizanidine Hcl (Zanaflex 4 Mg*) 4 Mg TAB 12-10 21:17: 00 Yes 8mg [facility] acetaminoph en (TYLENOL) tablet 975 mg 12-09 03:15: 00 12-09 02:28 :00 No 975mg 975 mg, Oral, ONCE, 1 dose, On Sat12/08/24 at 2215, ROSELYN [facility] ondansetron (ZOFRAN (PF)) injection 4 mg 12-09 03:00: 00 12-09 01:51 :00 No 4mg 4 mg, Slow IV Push, ONCE, 1 dose, On Sat12/08/24 at 2200, 2 mL [facility] hydrOXYzine HCl 10 MG oral Tablet 12-03 00:00: 00 01-07 00:00 :00 No 10mg QD Take 1 tablet (10 mg total) by mouth daily. Kellee pinedo Zolpidem Tartrate (Ambien) 5 MG oral Tablet 12-02 00:00: 00 12-16 00:00 :00 No [id number] 5mg QD Take 1 tablet (5 mg total) by mouth nightly as needed for sleep. Kellee pinedo HYDROcodone -Acetaminop hen 10-325 MG oral Tablet 11-29 00:00: 00 01-07 00:00 :00 No Kellee pinedo rosuvastati n (CRESTOR) tablet 40 mg 24 02:00: 00 11-27 18:39 :12 No 40mg [facility] enoxaparin (LOVENOX) injection 40 mg 11-27 22:00: 00 11-27 18:39 :12 No 40mg 40 mg, Subcutaneo us, DAILY AT 1700, First dose on Sat11/27/24 at 1700, Until Discontinu ed, Routine [facility] KCL (KLOR-CON M20) tablet 40 mEq KCL (KLOR-CON M20) tablet 40 mEq 11-27 17:45: 00 11-27 17:08 :00 No 40meq 40 mEq, Oral, ONCE, 1 dose, On Sat11/27/24 at 1245, Routine [facility] magnesium oxide (MAG-OX 400) 400 mg (241.3 [...] Sat11/27/24 at 0900, Until Discontinu ed [facility] isosorbide mononitrate (IMDUR) 24 hr tablet 60 mg isosorbide mononitrate (IMDUR) 24 hr tablet 60 mg 11-27 14:00: 00 11-27 18:39 :12 No 60mg 60 mg, Oral, DAILY, First dose on Sat11/27/24 at 0900, Until Discontinu ed, Routine [facility] clopidogreL (PLAVIX) 75 mg tablet 75 mg clopidogreL (PLAVIX) 75 mg tablet 75 mg 11-27 14:00: 00 11-27 18:39 :12 No 75mg 75 mg, Oral, DAILY, First dose on Sat11/27/24 at 0900, Until Discontinu ed, Routine, [employer] team member approving Restricted medication : ALEXX KWOK [facility] aspirin chewable tablet 81 mg aspirin chewable tablet 81 mg 11-27 14:00: 00 11-27 18:39 :12 No 81mg 81 mg, Oral, DAILY, First dose on Sat11/27/24 at 0900, Until Discontinu ed, Routine [facility] ALPRAZolam 2 mg 24 hr tablet 11-27 13:39: 12 Yes 2mg Take 1 tablet by mouth in the morning and 1 tablet in the evening. [facility] methocarbam oL (ROBAXIN) tablet 500 mg methocarbam oL (ROBAXIN) tablet 500 mg 11-27 13:00: 00 11-27 18:39 :12 No 500mg 500 mg, Oral, QID, First dose on Sat11/27/24 at 0800, Until Discontinu ed, Routine [facility] metoprolol tartrate (LOPRESSOR) tablet 12.5 mg metoprolol tartrate (LOPRESSOR) tablet 12.5 mg 11-27 13:00: 00 11-27 18:39 :12 No 12.5mg 12.5 mg, Oral, BID, First dose on Sat11/27/24 at 0800, Until Discontinu ed, Routine [facility] famotidine (PEPCID AC) tablet 20 mg famotidine (PEPCID AC) tablet 20 mg 11-27 13:00: 00 11-27 18:39 :12 No 20mg 20 mg, Oral, BID, First dose on Sat11/27/24 at 0800, Until Discontinu ed, Routine [facility] hydrOXYzine (ATARAX) tablet 50 mg 11-27 04:35: 56 11-27 18:39 :12 No 50mg [facility] ALPRAZolam (XANAX) tablet 1 mg 11-27 04:35: 16 11-27 18:39 :12 No 1mg [facility] NaCl 0.9% (NS) IV infusion 1,000 mL 11-27 03:00: 00 11-27 18:39 :12 No 1000mL at 50 mL/hr, IV Infusion, CONTINUOUS , Starting on Sat11/26/24 at 2200, Until Sat11/27/24 at 1339, Routine [facility] [...] at 1219, Routine, Pain (scale 7-10) [facility] HYDROcodone -acetaminop hen (NORCO 5) tablet 1 tablet HYDROcodone -acetaminop hen (NORCO 5) tablet 1 tablet 11-27 02:49: 09 11-27 17:19 :29 No 1{tbl} 1 tablet, Oral, Q6HPRN, Starting on Sat11/26/24 at 2149, Until Sat11/27/24 at 1219, Routine, Pain (scale 4-6) [facility] acetaminoph en (TYLENOL) tablet 650 mg 11-27 02:49: 07 11-27 18:39 :12 No 650mg 650 mg, Oral, Q6HPRN, Starting on Sat11/26/24 at 2149, Until Sat11/27/24 at 1339, Routine, Pain (scale 1-3) [facility] HYDROcodone -acetaminop hen (NORCO) 10-325 mg tablet 1 tablet 11-27 02:30: 00 11-27 02:47 :00 No 1{tbl} 1 tablet, Oral, ONCE NOW, 1 dose, On [place] 11/26/24 at 2130, Routine [facility] nitroglycer in (NITROL) 2 % ointment 1 Inch nitroglycer in (NITROL) 2 % ointment 1 Inch 11-27 02:15: 00 11-27 04:13 :00 No 1[in_us ] 1 Inch, Transderma l (Apply To Skin), ONCE NOW, 1 dose, On [place] 11/26/24 at 2115, Routine [facility] haloperidoL (HALDOL) tablet 2 mg 11-27 01:30: 00 11-27 18:39 :12 No 2mg 2 mg, Oral, QHS, First dose on [place] 11/26/24 at 2030, Until Discontinu ed, Routine [facility] ondansetron (ZOFRAN (PF)) injection 4 mg 11-27 01:00: 00 11-27 00:06 :00 No 4mg 4 mg, Slow IV Push, ONCE, 1 dose, On [place] 11/26/24 at 2000, 2 mL [facility] morpHINE (4 mg/mL) injection 4 mg 11-27 01:00: 00 11-27 00:07 :00 No 4mg 4 mg, Slow IV Push, ONCE, 1 dose, On [facility] 11/26/24 at 2000, STAT [facility] NaCl 0.9% (NS) bolus infusion 500 mL 11-27 00:15: 00 11-27 01:22 :00 No 500mL at 999 mL/hr, 500 mL, IV Infusion, ONCE, 1 dose, On [facility] 11/26/24 at 1915, STAT [facility] Methocarbam ol 750 MG oral Tablet 11-21 00:00: 00 Yes [id number] 750mg QD Take 1 tablet (750 mg total) by mouth daily. Kellee pinedo Aspirin (Aspirin Low Dose) 81 MG oral Tablet Delayed Response 11-16 00:00: 00 Yes [id number] 81mg QD TAKE 1 TABLET BY MOUTH EVERY DAY Kellee Buckley - Shivania l ibuprofen (IBU) tablet 600 mg 11-15 02:30: 00 11-15 02:21 :00 No 600mg 600 mg, Oral, ONCE, 1 dose, On Sat11/14/24 at 2130, ROSELYN [facility] Ciprofloxac in HCl (Cipro) 500 MG oral Tablet 11-15 00:00: 00 11-23 04:59 :00 No [id number] 500mg Q.5D Take 1 tablet (500 mg total) by mouth 2 times daily for 7 days. Kellee Parrisha l KCL (KLOR-CON M20) tablet 40 mEq 11-11 06:15: 00 11-11 05:28 :00 No 40meq 40 mEq, Oral, ONCE, 1 dose, On Sat11/11/24 at 0115, Routine [facility] iopamidol (ISOVUE 370-500 mL) injection 80 mL 11-11 05:00: 00 11-11 05:00 :00 No [id number] 80mL 80 mL, Intravenou s, ONCE, 1 dose, On Sat11/11/24 at 0000, Routine [facility] morpHINE (4 mg/mL) injection 4 mg 11-11 04:30: 00 11-11 04:29 :00 No 4mg 4 mg, Slow IV Push, ONCE, 1 dose, On Sat11/10/24 at 2330, STAT [facility] ondansetron (ZOFRAN (PF)) injection 4 mg 11-11 02:00: 00 11-11 02:32 :00 No 4mg 4 mg, Slow IV Push, ONCE, 1 dose, On Sat11/10/24 at 2100, Administer over 2-5 Minutes, 2 mL [facility] morpHINE (4 mg/mL) injection 4 mg 11-11 02:00: 00 11-11 02:29 :00 No 4mg 4 mg, Slow IV Push, ONCE, 1 dose, On Sat11/10/24 at 2100, STAT [facility] Haloperidol 2 MG oral Tablet [...] 40 mg tablet 11-05 00:00: 00 Yes [id number] 40mg Take 1 tablet by mouth in the morning. [facility] Benztropine Mesylate 0.5 MG oral Tablet 11-05 [...] 1 dose, On Sat11/04/24 at 1245, Routine [facility] magnesium sulfate in water 4 gram/50 mL (8 %) IV Piggyback 4 g magnesium sulfate in water 4 gram/50 mL (8 %) IV Piggyback 4 g 11-04 16:00: 00 11-04 19:04 :00 No 4g 4 g, IV Piggyback, at 25 mL/hr Administer over 120 Minutes, ONCE, 1 dose, On Sat11/04/24 at 1100, Routine [facility] clopidogreL 75 mg tablet 11-04 15:24: 11 Yes 75mg Take 1 tablet by mouth in the morning. [facility] aspirin 81 mg EC tablet 11-04 15:24: 11 Yes 81mg Take 1 tablet by mouth in the morning. [facility] hydrOXYzine 50 mg tablet 11-04 15:24: 11 Yes 50mg Take 1 tablet by mouth every 12 hours as needed for Anxiety. [facility] isosorbide mononitrate 60 mg 24 hr tablet 11-04 15:24: 11 03-08 00:00 :00 No 60mg Take 1 tablet by mouth in the morning. [facility] haloperidoL 2 mg tablet 11-04 15:24: 11 03-08 00:00 :00 No 2mg Take 1 tablet by mouth at bedtime. [facility] rosuvastati n 20 mg tablet 11-04 15:24: 10 11-04 00:00 :00 No 20mg Take 1 tablet by mouth at bedtime. [facility] rosuvastati n 40 mg tablet 11-04 00:00: 00 Yes [id number] 40mg Take 1 tablet by mouth at bedtime. [facility] metoprolol tartrate 25 mg tablet 11-04 00:00: 00 Yes [id number] 12.5mg Take 0.5 tablets by mouth in the morning and 0.5 tablets in the evening. [facility] aminophylli ne 50 mg in NaCl 0.9% (NS) 2 mL piggyback 11-03 19:44: 46 11-03 20:03 :14 No ONCE INTRA PROCEDURE, Starting on Sat11/03/24 at 1444, Until Sat11/03/24 at 1503, CV Intraproce dure [facility] adenosine diagnostic (ADENOSCAN) injection 11-03 19:10: 54 11-03 20:03 :14 No CONTINUOUS PRN, Starting on Sat11/03/24 at 1410, Until Sat11/03/24 at 1503, Routine, CV Intraproce dure [facility] heparin 1,000 unit/mL injection 11-03 18:45: 11 11-03 20:03 :14 No ONCE INTRA PROCEDURE, Starting on Sat11/03/24 at 1345, Until Sat11/03/24 at 1503, Routine, CV Intraproce dure [facility] nitroglycer in (TRIDIL) 2 mg in 10 mL D5W for Cardiac Cath 11-03 18:29: 27 11-03 20:03 :14 No ONCE INTRA PROCEDURE, Starting on Sat11/03/24 at 1329, Until Sat11/03/24 at 1503, Routine, CV Intraproce dure [facility] lidocaine 1% (PF) (XYLOCAINE) injection 11-03 18:13: 12 11-03 20:03 :14 No ONCE INTRA PROCEDURE, Starting on Sat11/03/24 at 1313, Until Sat11/03/24 at 1503, Routine, CV Intraproce dure [facility] midazolam (VERSED) 1 mg/mL injection 11-03 18:12: 08 11-03 20:03 :14 No ONCE INTRA PROCEDURE, Starting on Sat11/03/24 at 1312, Until Sat11/03/24 at 1503, Routine, CV Intraproce dure [facility] FENTanyl (PF) (SUBLIMAZE) injection 11-03 18:11: 52 11-03 20:03 :14 No ONCE INTRA PROCEDURE, Starting on Sat11/03/24 at 1311, Until Sat11/03/24 at 1503, Routine, CV Intraproce dure [facility] metoprolol tartrate (LOPRESSOR) tablet 12.5 mg metoprolol tartrate (LOPRESSOR) tablet 12.5 mg 11-03 13:00: 00 11-04 22:34 :20 No 12.5mg 12.5 mg, Oral, BID, First dose on Sat11/03/24 at 0800, Until Discontinu ed, Routine [facility] famotidine (PEPCID AC) tablet 20 mg famotidine (PEPCID AC) tablet 20 mg 11-02 14:00: 00 11-04 20:24 :12 No 20mg 20 mg, Oral, DAILY, First dose (after last modificati on) on Sat11/02/24 at 0900, Until Discontinu ed, Routine [facility] rosuvastati n (CRESTOR) tablet 40 mg [...] ant therapy. Range, Dosing and Testing: FOR [facility] ONLY - aPTT < 35: Bolus [...] once therapeuti c levels are reached. FOR [facility] ONLY - aPTT < 40: Bolus [...] ADJUST INITIAL BOLUS OR INITIAL INFUSION RATE. [facility] HEPARIN SODIUM (PORCINE) 1,000 UNIT/ML BOLUS ACS ORDER SET [id number] 4-27 17:30: 00 11-01 19:27 :00 No 4000U 4,000 Units, IV Push, ONCE, 1 dose, On Sat11/01/24 at 1230, ROSELYN [facility] heparin (1,000 unit/mL, 10 mL vial) for Rebolusing [id number] 4-27 17:27: 37 11-04 20:24 :12 No 3000U FOR REBOLUSING , Starting on Sat11/01/24 at 1227, Until Sat11/04/24 at 1524, Routine, Dosing based on aPTT testing parameters (refer to continuous heparin drip order). [facility] lisinopriL (PRINIVIL,Z ESTRIL) tablet 40 mg lisinopriL (PRINIVIL,Z ESTRIL) tablet 40 mg 11-01 14:00: 00 11-04 22:34 :20 No 40mg 40 mg, Oral, DAILY, First dose on Sat11/01/24 at 0900, Until Discontinu ed, Routine [facility] isosorbide mononitrate (IMDUR) 24 hr tablet 60 mg isosorbide mononitrate (IMDUR) 24 hr tablet 60 mg 11-01 14:00: 00 11-04 20:24 :11 No 60mg 60 mg, Oral, DAILY, First dose on Sat11/01/24 at 0900, Until Discontinu ed, Routine [facility] aspirin EC tablet 81 mg aspirin EC tablet 81 mg 11-01 14:00: 00 11-04 20:24 :11 No 81mg 81 mg, Oral, DAILY, First dose on Sat11/01/24 at 0900, Until Discontinu ed, Routine [facility] clopidogreL (PLAVIX) 75 mg tablet 75 mg clopidogreL (PLAVIX) 75 mg tablet 75 mg 11-01 14:00: 00 11-04 20:24 :11 No 75mg 75 mg, Oral, DAILY, First dose on Sat11/01/24 at 0900, Until Discontinu ed, Routine [facility] enoxaparin (LOVENOX) injection 40 mg enoxaparin (LOVENOX) injection 40 mg 11-01 14:00: 00 11-01 17:27 :16 No 40mg 40 mg, Subcutaneo us, DAILY, First dose on Sat11/01/24 at 0900, Until Discontinu ed, Routine [facility] perflutren protein-A microsphr (OPTISON) injection 3 mL 11-01 13:45: 00 11-01 13:45 :00 No [id number] 3mL 3 mL, IV Push, ONCE, 1 [...] [place] ALPRAZolam (XANAX) tablet 1 mg [id number] 4-27 06:46: 25 11-01 23:35 :16 No 1mg 1 mg, Oral, BIDPRN, Starting on Sat11/01/24 at 0146, Until Sat11/01/24 at 1835, Routine, Anxiety [facility] methocarbam oL (ROBAXIN) tablet 500 mg methocarbam oL (ROBAXIN) tablet 500 mg 11-01 06:45: 47 11-04 20:24 :11 No 500mg 500 mg, Oral, Q6HPRN, Starting on Sat11/01/24 at 0145, Until Sat11/04/24 at 1524, Routine, Muscle Spasms [facility] [...] 1524, Administer over 2-5 Minutes, 2 mL [facility] morpHINE (4 mg/mL) injection 4 mg 11-01 04:15: 00 11-01 04:06 :00 No 4mg 4 mg, Slow IV Push, ONCE, 1 dose, On 10/31/24 at 2315, STAT [facility] maalox/diph enhydrAMINE :lidocaine2 %viscous 1:1:1: suspension (COMPOUNDED ) 11-01 04:15: 00 11-01 04:06 :00 No 15mL 15 mL, Oral, ONCE, 1 dose, On 10/31/24 at 2315, Routine [facility] morpHINE (4 mg/mL) injection 4 mg 11-01 03:15: 00 11-01 03:10 :00 No 4mg 4 mg, Slow IV Push, ONCE, 1 dose, On 10/31/24 at 2215, STAT [facility] ondansetron (ZOFRAN (PF)) injection 4 mg 11-01 03:15: 00 11-01 03:12 :00 No 4mg 4 mg, Slow IV Push, ONCE, 1 dose, On 10/31/24 at 2215, Administer over 2-5 Minutes, 2 mL [facility] nitroglycer in (NITROSTAT) sublingual tablet 0.4 mg 11-01 03:15: 00 11-01 02:58 :00 No .4mg 0.4 mg, Sublingual , ONCE, 1 dose, On Sat10/31/24 at 2215, ROSELYN [facility] iopamidol (ISOVUE 370-500 mL) injection 100 mL 10-24 04:30: 00 10-24 04:30 :00 No [id number] 100mL 100 mL, Intravenou s, ONCE, 1 dose, On Sat10/23/24 at 2330, Routine [facility] cefTRIAXone (ROCEPHIN) 1,000 mg in water for injection, sterile 10 mL IV Push 10-24 03:00: 00 10-24 02:54 :00 No 1000mg 1,000 mg, Intravenou s, ONCE, 1 dose, On Sat10/23/24 at 2200, 10 mL, Reason for Anti-Infec tive: Empiric Therapy for Suspected Infection, Empiric Therapy Site: Urine, Duration of therapy: Once (ED) [facility] NaCl 0.9% (NS) bolus infusion 1,000 mL 10-24 01:30: 00 10-24 04:03 :00 No 1000mL at 999 mL/hr, 1,000 mL, IV Infusion, ONCE, 1 dose, On Sat10/23/24 at 2030, STAT [facility] ondansetron (ZOFRAN (PF)) injection 4 mg 10-24 01:30: 00 10-24 02:26 :00 No 4mg 4 mg, Slow IV Push, ONCE, 1 dose, On Sat10/23/24 at 2030, Administer over 2-5 Minutes, 2 mL [facility] morpHINE (4 mg/mL) injection 6 mg 10-24 01:30: 00 10-24 02:22 :00 No 6mg 6 mg, Slow IV Push, ONCE, 1 dose, On Sat10/23/24 at 2030, STAT [facility] Cefdinir 300 MG oral Capsule 10-24 00:00: [...] 10-23 10:46: 10 10-23 00:00 :00 No [id number] 50mg Q.5D Take 1 capsule (50 mg total) by mouth as needed in the morning and 1 capsule (50 mg total) as needed in the evening for anxiety. Kellee pinedo Sertraline HCl 200 MG oral Capsule 10-23 10:16: 17 Yes 1{capsu le} QD Take 1 capsule by mouth daily. Kellee pinedo hydrOXYzine Pamoate 50 MG oral Capsule 10-23 00:00: 00 Yes [id number] 50mg Q.5D Take 1 capsule (50 mg total) by mouth as needed in the morning and 1 capsule (50 mg total) as needed in the evening for anxiety. Kellee pinedo Ascorbic Acid (Vitamin C) 250 MG oral Tablet 10-23 00:00: 00 Yes [id number] 250mg QD Take 1 tablet (250 mg total) by mouth daily. Kellee pinedo famotidine (PEPCID) 20 mg tablet 10-23 00:00: 00 03-08 00:00 :00 No [id number] 20mg Take 1 tablet by mouth in the morning and 1 tablet in the evening. [facility] Eszopiclone 2 MG oral Tablet 10-23 00:00: 00 12-02 00:00 :00 No [id number] 2mg QD Take 1 tablet (2 mg total) by mouth nightly Take immediatel y before bedtime. Kellee pinedo cefdinir 300 mg capsule 10-23 00:00: 11-04 00:00 :00 No [id number] 300mg Take 1 capsule by mouth in the morning and 1 capsule in the evening. Do all this for 8 days. [facility] ondansetron 4 mg disintegrat ing tablet 10-23 00:00: 11-01 00:00 :00 No [id number] 4mg Take 1 tablet by mouth every 12 (twelve) hours as needed for Nausea and Vomiting (N/V). [facility] HYDROcodone -acetaminop hen 5-325 mg tablet 10-23 00:00: 00 10-31 04:59 :00 No [id number] 1{tbl} Take 1 tablet by mouth every 6 (six) hours as needed for Pain (scale 7-10) for up to 7 days. Indication s: acute pain [facility] Methocarbam ol 750 MG oral Tablet 10-20 00:00: 00 Yes [id number] 750mg QD Take 1 tablet (750 mg total) by mouth daily. Kellee pinedo Belsomra 20 MG oral Tablet 10-20 00:00: 00 10-23 00:00 :00 No [id number] 1{tbl} QD TAKE 1 TABLET BY MOUTH EVERY DAY AT NIGHT Kellee pinedo Ketorolac Tromethamin e 10 MG oral Tablet 10-15 00:00: 00 01-07 00:00 :00 No Kellee pinedo Rosuvastati n Calcium (Crestor 20 Mg *) 20 Mg TAB Rosuvastati n Calcium (Crestor 20 Mg *) 20 Mg TAB 10-14 18:49: 00 Yes [facility] Clopidogrel Bisulfate (Plavix 75 Mg *) 75 Mg TAB Clopidogrel Bisulfate (Plavix 75 Mg *) 75 Mg TAB 10-14 02:00: 00 Yes 75mg [facility] Haloperidol Haloperidol 10-14 02:00: 00 Yes 1mg [facility] Isosorbide Mononitrate (Imdur *) 60 Mg Tablet ER 24HR Isosorbide Mononitrate (Imdur *) 60 Mg Tablet ER 24HR 10-14 02:00: 00 Yes 60mg [facility] Methocarbam ol Methocarbam ol 10-14 02:00: 00 Yes 750mg [facility] Metoprolol Succinate (Toprol Xl *) 25 Mg Tablet ER 24HR Metoprolol Succinate (Toprol Xl *) 25 Mg Tablet ER 24HR 10-14 02:00: 00 Yes 25mg [facility] morphine (2 mg/mL) injection 2 mg 10-13 07:30: 00 10-13 07:35 :00 No 2mg 2 mg, Slow IV Push, ONCE, 1 dose, On Sat10/13/24 at 0230, [facility] (ZOFRAN (PF)) injection 4 mg 10-13 05:15: 00 10-13 05:20 :00 No 4mg 4 mg, Slow IV Push, ONCE, 1 dose, On Sat10/13/24 at 0015, Administer over 2-5 Minutes, 2 mL [facility] morphine (2 mg/mL) injection 2 [...] Until Discontinu ed, ROSELYN, Chest pain [facility] Haloperidol 1 MG oral Tablet 10-09 00:00: 00 01-07 00:00 :00 No TAKE 1 ORAL TABLET AT BEDTIME FOR 2 WEEKS INCREASE TO 2 ORAL TABLETS AT BEDTIME AFTER 2 WEEKS. Kellee pinedo hydrOXYzine HCl 10 MG oral Tablet - 00:00: 00 10-23 00:00 :00 No Kellee pinedo Haloperidol 0.5 MG oral Tablet 09-11 00:00: 00 10-23 00:00 :00 No .5mg Take 1 tablet (0.5 mg total) by mouth at bedtime. Kellee pinedo Methocarbam ol 750 MG oral Tablet 09-07 00:00: 00 Yes [id number] 750mg Q.25D TAKE 1 TABLET (750 MG TOTAL) BY MOUTH 4 TIMES DAILY. Kellee pinedo Belsomra 20 MG oral Tablet 09-07 00:00: 00 Yes [id number] 1{tbl} QD TAKE 1 TABLET BY MOUTH EVERY DAY AT NIGHT Kellee pinedo Aspirin Low Dose 81 MG oral Tablet Delayed Response 09-01 00:00: 00 Yes [id number] 81mg QD TAKE 1 TABLET BY MOUTH [...] Tablet Therapy Pack 08-05 00:00: 00 Yes [id number] 1{heena} Take 1 heena by mouth See Admin Instructio ns Use as directed. Kellee pinedo Guaifenesin (Mucinex) 600 MG oral Tablet 12 Hour Sustained Release 08-05 00:00: 00 Yes [id number] 1200mg Q.5D Take 2 tablets (1,200 mg total) by mouth 2 times daily. Kellee pinedo Albuterol HFA 108 (90 Base) MCG/ACT IN AERS 08-05 00:00: 00 10-23 00:00 :00 No [id number] 2{puff} Q.25D Inhale 2 puffs into the lungs every 6 hours as needed for wheezing or shortness of breath. Kellee pinedo Belsomra 20 MG oral Tablet 08-04 00:00: 00 Yes [id number] 1{tbl} QD TAKE 1 TABLET BY MOUTH EVERY DAY AT NIGHT Kellee pinedo Aspirin Low Dose 81 MG oral Tablet Delayed Response 08-04 00:00: 00 Yes [id number] 81mg QD TAKE 1 TABLET BY MOUTH [...] 1 dose, On Sat07/19/24 at 0200, Routine [facility] ipratropium -albuteroL (DUONEB) 0.5 mg-3 mg(2.5 mg base)/3 mL nebulizer solution 3 mL 07-19 08:00: 00 07-19 07:04 :00 No 3mL 3 mL, Inhalation , ONCE, 1 dose, On Sat07/19/24 at 0200, Routine [facility] azithromyci n (ZITHROMAX) tablet 500 mg 07-19 07:00: 00 07-19 07:05 :00 No 500mg 500 mg, Oral, ONCE, 1 dose, On Sat07/19/24 at 0100, ROSELYN, Reason for Anti-Infec tive: Documented Infection, Documented Infection Site: Respirator y, Duration of Therapy: Once (ED) [facility] iopamidol (ISOVUE 370-500 mL) injection 75 mL 07-19 06:45: 00 07-19 06:45 :00 No [id number] 75mL 75 mL, Intravenou s, ONCE, 1 dose, On Sat07/19/24 at 0045, Routine [facility] nitroglycer in (NITROL) 2 % ointment 0.5 Inch 07-19 06:00: 00 07-19 05:11 :00 No .5[in_u s] 0.5 Inch, Transderma l (Apply To Skin), ONCE, 1 dose, On 07/19/24 at 0000, ROSELYN [facility] ketorolac (TORADOL) injection 15 mg 07-19 06:00: 00 07-19 05:09 :00 No 15mg 15 mg, Slow IV Push, ONCE, 1 dose, On 07/19/24 at 0000, ROSELYN [facility] azithromyci n (ZITHROMAX Z-HEENA) 250 mg tablet 07-19 00:00: 00 11-01 00:00 :00 No [id number] 250mg Take 1 tablet by mouth SEE-INSTRU CTIONS. Take 500 mg day 1, then 250 mg days 2 to 5. [facility] predniSONE 20 mg tablet 07-19 00:00: 00 11-01 00:00 :00 No [id number] 1 PO BID x 4 days [facility] Sertraline HCl 50 MG oral Tablet 07-10 00:00: 10-23 00:00 :00 No [id number] TAKE 1 TABLET BY MOUTH DAILY TAKE IN ADDITION TO 100 MG TABLET FOR A TOTAL DOSE OF 150 MG DAILY. Kellee pinedo Sertraline HCl 100 MG oral Tablet 07-10 00:00: 00 10-23 00:00 :00 No [id number] TAKE 1 TABLET BY MOUTH EVERY MORNING TAKE IN ADDITION TO 50 MG TABLET FOR A TOTAL DOSE OF 150 MG DAILY. Kellee pinedo iopamidol (ISOVUE 370-500 mL) injection 100 mL 2023-07 06:45: 00 07-04 06:45 :00 No [id number] 100mL 100 mL, Intravenou s, ONCE, 1 dose, On Sat07/04/24 at 0045, Routine [facility] morpHINE (4 mg/mL) injection 4 mg 2023-07 06:30: 00 07-04 06:29 :00 No 4mg 4 mg, Slow IV Push, ONCE, 1 dose, [facility] 07[facility]04/24 [facility] 0030[facility] (PHENERGAN) 12.5 mg in NS 50 mL IV piggyback (CNR) 2023-07 05:15: 00 07-04 05:30 :00 No 12.5mg 12.5 mg, IV Piggyback, at 200 mL/hr Administer over 15 Minutes, ONCE, 1 dose, On Sat07/03/24 at 2315, [facility] (4 mg/mL) injection 4 mg 2023-07 03:30: 00 07-04 03:49 :00 No 4mg 4 mg, Slow IV Push, ONCE, 1 dose, On Sat07/03/24 at 2130, STAT [facility] ondansetron (ZOFRAN (PF)) injection 4 mg 2023-07 03:30: 00 07-04 03:50 :00 No 4mg 4 mg, Slow IV Push, ONCE, 1 dose, On Sat07/03/24 at 2130, Administer over 2-5 Minutes, 2 mL [facility] NaCl 0.9% (NS) IV infusion 1,000 mL 2023-07 03:18: 00 07-04 04:56 :00 No 1000mL at 999 mL/hr, Intravenou s, ONCE, 1 dose, On Sat07/03/24 at 2130, ROSELYN [facility] sodium chloride (NS) injection 5 mL 2023-07 02:16: 03 Yes 5mL 5 mL, Intravenou s, PRN, Starting on Sat07/03/24 at 2016, Until Discontinu ed, Routine, IV line flushing [facility] benzonatate 100 mg capsule 2023-07 00:00: 00 Yes [id number] 100mg Take 1 capsule by mouth 3 (three) times daily as needed for Cough. [facility] proMETHazin e 25 mg tablet 2023-07 00:00: 00 11-01 00:00 :00 No [id number] 25mg Take 1 tablet by mouth every 6 (six) hours as needed for Nausea and Vomiting (N/V). [facility] dicyclomine 10 mg capsule 2023-07 00:00: 00 11-01 00:00 :00 No [id number] 10mg Take 1 capsule by mouth 3 (three) times daily as needed for Abdominal pain. [facility] Gabapentin 300 MG oral Capsule 2023-07 00:00: 00 Yes 1 cap po 30-60 min prior to MRI. Kellee pinedo cephALEXin (KEFLEX) capsule 500 mg 2023-07 08:45: 00 06-21 08:53 :00 No 500mg 500 mg, Oral, ONCE, 1 dose, On Sat06/21/24 at 0245, ROSELYN, Reason for Anti-Infec tive: Documented Infection, Documented Infection Site: Skin / Soft Tissue, Duration of Therapy: Once (ED) [facility] doxycycline hyclate (Vibramycin ) capsule 100 mg 2023-07 08:45: 00 06-21 08:53 :00 No 100mg 100 mg, Oral, ONCE, 1 dose, On Sat06/21/24 at 0245, ROSELYN, Reason for Anti-Infec tive: Documented Infection, Documented Infection Site: Skin / Soft Tissue, Duration of Therapy: Once (ED) [facility] doxycycline hyclate 100 mg capsule 2023-07 00:00: 00 06-29 05:59 :00 No [id number] 100mg Take 1 capsule by mouth in the morning and 1 capsule in the evening. Do all this for 7 days. [facility] cephALEXin 500 mg capsule 2023-07 00:00: 00 06-29 05:59 :00 No [id number] 500mg Take 1 capsule by mouth 4 (four) times daily for 7 days. [facility] iopamidol (ISOVUE 370-500 mL) injection 100 mL 2023-07 06:30: 00 06-15 06:30 :00 No [id number] 100mL 100 mL, Intravenou s, ONCE, 1 dose, On Sat06/15/24 at 0030, Routine [facility] morpHINE (4 mg/mL) injection 4 mg 2023-07 06:00: 00 06-15 05:57 :00 No 4mg 4 mg, Slow IV Push, ONCE, 1 dose, On Sat06/15/24 at 0000, STAT [facility] proMETHazin e (PHENERGAN) 12.5 mg in NS 50 mL IV piggyback (CNR) 2023-07 05:15: 00 06-15 05:56 :00 No 12.5mg 12.5 mg, IV Piggyback, at 200 mL/hr Administer over 15 Minutes, ONCE, 1 dose, On Sat06/14/24 at 2315, ROSELYN [facility] NaCl 0.9% (NS) IV infusion 1,000 mL 2023-07 04:30: 00 06-15 05:28 :00 No 1000mL at 999 mL/hr, Intravenou s, ONCE, 1 dose, On 06/14/24 at 2230, Routine [facility] fentanyl PF (SUBLIMAZE (PF)) injection 50 mcg 2023-07 04:00: 00 06-15 04:23 :00 No 50ug 50 mcg, Slow IV Push, ONCE, 1 dose, On 06/14/24 at 2200, Routine [facility] famotidine (PEPCID (PF)) injection 20 mg 2023-07 03:30: 00 06-15 04:18 :00 No 20mg 20 mg, Slow IV Push, ONCE, 1 dose, On 06/14/24 at 2130, ROSELYN [facility] ondansetron (ZOFRAN (PF)) injection 4 mg 2023-07 03:30: 00 06-15 04:20 :00 No 4mg 4 mg, Slow IV Push, ONCE, 1 dose, On 06/14/24 at 2130, Administer over 2-5 Minutes, 2 mL [facility] proMETHazin e 25 mg tablet 2023-07 00:00: 00 11-01 00:00 :00 No [id number] 25mg Take 1 tablet by mouth every 6 (six) hours as needed for Nausea and Vomiting (N/V). [facility] morpHINE (4 mg/mL) injection 4 mg 2023-07 08:15: 00 06-07 08:11 :00 No 4mg 4 mg, Slow IV Push, ONCE, 1 dose, On 06/07/24 at 0215, STAT [facility] ondansetron (ZOFRAN (PF)) injection 4 mg 2023-07 05:15: 00 06-07 05:23 :00 No 4mg 4 mg, Slow IV Push, ONCE, 1 dose, On 06/06/24 at 2315, Administer over 2-5 Minutes, 2 mL [facility] morpHINE (4 mg/mL) injection 4 mg 2023-07 05:15: 00 06-07 05:21 :00 No 4mg 4 mg, Slow IV Push, ONCE, 1 dose, On Sat06/06/24 at 2315, STAT [facility] nitroglycer in (NITROSTAT) sublingual tablet 0.4 mg 2023-07 05:08: 35 Yes .4mg 0.4 mg, Sublingual , Q5MIN PRN, 3 doses, Starting on Sat06/06/24 at 2308, Until Discontinu ed, ROSELYN, Chest pain [facility] hydrOXYzine Pamoate 50 MG oral Capsule 2023-07 13:02: 35 Yes [id number] 50mg Q.5D Take 1 capsule (50 mg total) by mouth 2 times daily as needed for anxiety. Kellee pinedo Vitamin D, Ergocalcife rol, 1.25 MG (10972 UT) oral Capsule 2023-07 00:00: 00 Yes [id number] Q1W Take 1 capsule (50,000 units total) by mouth once a week. Kellee pinedo ondansetron (ZOFRAN-ODT ) disintegrat ing tablet 4 mg 2023-07 20:15: 00 05-19 19:27 :00 No 4mg 4 mg, Oral, ONCE, 1 dose, On Sat05/19/24 at 1415, Routine [facility] HYDROcodone -acetaminop hen (NORCO 5) tablet 1 tablet 2023-07 18:00: 00 05-19 19:27 :00 No 1{tbl} 1 tablet, Oral, ONCE, 1 dose, On Sat05/19/24 at 1200, ROSELYN [facility] ondansetron 4 mg disintegrat ing tablet 2023-07 00:00: 00 11-01 00:00 :00 No [id number] 4mg Take 1 tablet by mouth every 8 (eight) hours as needed for Nausea and Vomiting (N/V). [facility] hydrOXYzine Pamoate 50 MG oral Capsule 2023-07 10:26: 29 Yes [id number] 50mg Q.5D Take 1 capsule (50 mg total) by mouth 2 times daily as needed for anxiety. Kellee pinedo ondansetron (ZOFRAN (PF)) injection 4 mg 2023-07 03:45: 00 05-18 03:42 :00 No 4mg 4 mg, Slow IV Push, ONCE, 1 dose, On 05/17/24 at 2145, ROSELYN [facility] morpHINE (4 mg/mL) injection 4 mg 2023-07 03:45: 00 05-18 03:42 :00 No 4mg 4 mg, Slow IV Push, ONCE, 1 dose, On 05/17/24 at 2145, STAT [facility] ondansetron (ZOFRAN (PF)) injection 4 mg 2023-07 01:00: 00 05-18 01:21 :00 No 4mg 4 mg, Slow IV Push, ONCE, 1 dose, On 05/17/24 at 1900, ROSELYN [facility] fentanyl PF (SUBLIMAZE (PF)) injection 50 mcg 2023-07 01:00: 00 05-18 01:21 :00 No 50ug 50 mcg, Slow IV Push, ONCE, 1 dose, On 05/17/24 at 1900, STAT [facility] Suvorexant (Belsomra) 20 MG oral Tablet 2023-07 00:00: 00 Yes [id number] 1{tbl} QD Take 1 tablet by mouth nightly. Kellee pinedo Methocarbam ol 750 MG oral Tablet 2023-07 00:00: 00 Yes [id number] 750mg Q.25D Take 1 tablet (750 mg total) by mouth 4 times daily. Kellee pinedo Acetaminoph en-Codeine 300-30 MG oral Tablet 2023-07 00:00: 00 Yes [id number] Kellee pinedo Lorazepam (ATIVAN) 0.5 MG oral Tablet tablet 2023-07 00:00: 00 Yes [id number] .5mg Q.5D Take 1 tablet (0.5 mg total) by mouth 2 times daily as needed for anxiety. Kellee pinedo Sertraline HCl 50 MG oral Tablet 2023-07 00:00: 00 Yes [id number] 50mg QD Take 1 tablet (50 mg total) by mouth daily Take in addition to 100 mg tablet for a total dose of 150 mg daily. Kellee pinedo Sertraline HCl 100 MG oral Tablet 2023-07 00:00: 00 Yes [id number] 100mg Take 1 tablet (100 mg total) by mouth every morning Take in addition to 50 mg tablet for a total dose of 150 mg daily. Kellee pinedo Isosorbide Mononitrate CR 30 MG oral TABLET SR 24 HR 2023-07 00:00: 00 01-07 00:00 :00 No [id number] Kellee pinedo ondansetron (ZOFRAN (PF)) injection 4 mg 2023-07 01:30: 00 05-08 00:31 :00 No 4mg 4 mg, Slow IV Push, ONCE, 1 dose, On [place] 05[facility]07/24 at 2030[facility] 4 mg 2023-07 01:30: 00 05-08 01:20 :00 No 4mg 4 mg, Slow IV Push, ONCE, 1 dose, On [place] 05/07/24 at 2030, STAT [facility] ketorolac (TORADOL) injection 15 mg 2023-07 01:30: 00 05-08 00:30 :00 No 15mg 15 mg, Slow IV Push, ONCE, 1 dose, On [place] 05/07/24 at 2030[facility]ine 200 mg tablet 2023-07 00:00: 00 11-01 00:00 :00 No [id number] 200mg Take 1 tablet by mouth in the morning and 1 tablet at noon and 1 tablet in the evening. [facility] Rosuvregina mueller Calcium 20 MG oral Tablet 2023-07 030 00:00: 00 01-07 00:00 :00 No 20mg QD Take 1 tablet (20 mg total) by mouth daily. Kellee pinedo Metoprolol Succinate 25 MG oral TABLET SR 24 HR 2023-07 0- 00:00: 00 Yes [id number] 25mg QD Take 1 tablet (25 mg total) by mouth daily. Kellee pinedo Dicyclomine HCl 20 MG oral Tablet 2023-07 0 00:00: 00 Yes Kellee pinedo Ondansetron (ZOFRAN) 4 MG oral TABLET DISPERSIBLE 2023-07 00:00: 00 Yes 4mg Q.[id number] 3D Take 1 tablet (4 mg total) by mouth 3 times daily. Kellee pinedo Belsomra 20 MG oral Tablet 2023-07 00:00: 00 05-18 00:00 :00 No [id number] 1{tbl} QD take 1 tablet by mouth every day at night Kellee pinedo Nitrofurant oin (Macrobid *) 100 Mg CAP Nitrofurant oin (Macrobid *) 100 Mg CAP 2023-07 0 18:32: 00 10-14 01:54 :00 No 100mg [facility] Ondansetron Hcl (Zofran *) 4 Mg Tablet Disint Ondansetron Hcl (Zofran *) 4 Mg Tablet Disint 2023-07 0 18:32: 00 10-14 01:54 :00 No 1{tbl} [facility] cefTRIAXone (ROCEPHIN) 1,000 mg in NaCl 0.9% (NS) 100 mL MINI-BAG 2023-07 0-03 01:15: 00 04-09 01:24 :00 No 1000mg 1,000 mg, IV Piggyback, ONCE, 1 dose, On Sat04/08/24 at 2014, Administer over 30 Minutes, 100 mL, Reason for Anti-Infec tive: Documented Infection, Documented Infection Site: Urine, Duration of Therapy: Once (ED) [facility] fentanyl PF (SUBLIMAZE (PF)) injection 25 mcg 2023-07 00:15: 00 04-09 00:18 :00 No 25ug 25 mcg, Slow IV Push, ONCE, 1 dose, On Sat04/08/24 at 1915, STAT [facility] NaCl 0.9% (NS) bolus [...] Until Discontinu ed, Routine, IV line flushing [facility] ciprofloxac in HCl 500 mg tablet 2023-07 00:00: 00 11-01 00:00 :00 No [id number] 500mg Take 1 tablet by mouth in the morning and 1 tablet in the evening. [facility] Promethazin e HCl (PHENERGAN) 25 MG oral Tablet 07 00:00: 00 01-07 00:00 :00 No 25mg Q.[id number] 3D Take 1 tablet (25 mg total) by mouth every 8 hours as needed for nausea. Kellee pinedo Aspirin Low Dose 81 MG oral Tablet Delayed Response 02-09 00:00: 00 Yes [id number] 81mg QD take 1 tablet by mouth every day Kellee pinedo Clopidogrel Bisulfate (PLAVIX) 75 MG oral Tablet 02-09 00:00: 00 Yes [id number] 75mg QD take 1 tablet by mouth every day Kellee pinedo Methylpredn isolone Acetate (Depo-Medro l) 40 mg/ml - Physician Administere d ([id number]) 02-05 13:21: 25 No [id number] 9104 40mg 40 mg, Physician Administer ed, ONCE, 1 dose, On [place] 02/06/24 at 1145 Kellee pinedo hydrOXYzine Pamoate 50 MG oral Capsule 02-05 11:06: 49 Yes [id number] 50mg Q.5D Take 1 capsule (50 mg total) by mouth 2 times daily as needed for anxiety. Kellee pinedo Isosorbide Mononitrate CR 60 MG oral TABLET SR 24 HR 02-04 00:00: 00 Yes Kellee pinedo Lorazepam (ATIVAN) 0.5 MG oral Tablet tablet 01-09 00:00: 00 Yes [id number] .5mg Q.5D take 1 tablet by mouth 2 times daily as needed for anxiety Kellee pinedo Aspirin (Aspirin Low Dose) 81 MG oral Tablet Delayed Response 01-05 00:00: 00 Yes [id number] 81mg QD Take 1 tablet (81 mg total) by mouth daily. Kellee pinedo Atorvastati n Calcium 40 MG oral Tablet 01-05 00:00: 00 Yes [id number] 40mg QD Take 1 tablet (40 mg total) by mouth daily. Kellee pinedo Suvorexant (Belsomra) 20 MG oral Tablet 01-05 00:00: 00 Yes [id number] 1{tbl} QD Take 1 tablet by mouth nightly. Kellee pinedo Clopidogrel Bisulfate (PLAVIX) 75 MG oral Tablet 01-05 00:00: 00 Yes [id number] 75mg QD Take 1 tablet (75 mg [...] MG oral Capsule 12-12 09:19: 23 Yes [id number] 50mg Q.5D Take 1 capsule (50 mg total) by mouth 2 times daily as needed for anxiety. Kellee pinedo Lorazepam (ATIVAN) 0.5 MG oral Tablet tablet 12-12 00:00: 00 Yes [id number] .5mg Q.5D Take 1 tablet (0.5 mg total) by mouth 2 times daily as needed for anxiety. Kellee pinedo Aspirin Low Dose 81 MG oral Tablet Delayed Response 12-05 00:00: 00 Yes [id number] 81mg Take 1 tablet (81 mg total) by mouth daily. Kellee pinedo Atorvastati n Calcium 40 MG oral Tablet 12-05 00:00: 00 Yes [id number] 40mg Take 1 tablet (40 mg total) by mouth daily. Kellee pinedo Clopidogrel Bisulfate (PLAVIX) 75 MG oral Tablet 12-05 00:00: 00 Yes [id number] 75mg Take 1 tablet (75 mg total) by mouth daily. Kellee pinedo Mometasone Furo-Formot camelia Fum (Dulera) 200-5 MCG/ACT inhalation Aerosol 12-05 00:00: 00 05-18 00:00 :00 No TWICE DAILY Kellee pinedo Vitamin D, Ergocalcife rol, 1.25 MG (68254 UT) oral Capsule 12-04 00:00: 00 Yes [id number] 50578O Q1W Take 1 capsule (50,000 units total) by mouth once a week. Kellee pinedo Ferrous Sulfate 325 (65 Fe) MG oral Tablet 12-04 00:00: 00 Yes [id number] 325mg QD Take 1 tablet (325 mg total) by mouth daily (with breakfast) . Kellee pinedo Clopidogrel Bisulfate (PLAVIX) 75 MG oral Tablet 12-04 00:00: 00 01-07 00:00 :00 No 75mg Take 1 tablet (75 mg total) by mouth. Kellee pinedo Mirtazapine 45 MG oral Tablet 12-02 10:49: 07 12-02 00:00 :00 No [id number] 45mg Take 1 tablet (45 mg total) by mouth nightly. Kellee pinedo hydrOXYzine Pamoate 50 MG oral Capsule 12-02 10:49: 04 Yes [id number] 50mg Q.5D Take 1 capsule (50 mg total) by mouth 2 times daily as needed for anxiety. Kellee pinedo Ascorbic Acid 500 MG oral Tablet 12-02 10:48: 55 12-02 00:00 :00 No 50mg Take 50 mg by mouth. Kellee pinedo Suvorexant (Belsomra) 20 MG oral Tablet 12-02 00:00: 00 Yes [id number] 1{tbl} Take 1 tablet by mouth nightly. Kellee pinedo Lorazepam 1 MG oral Tablet 12-02 00:00: 00 12-12 00:00 :00 No [id number] 1mg Q.5D Take 1 tablet (1 mg total) by mouth 2 times daily as needed for anxiety. Kellee pinedo Doxepin HCl 3 MG oral Tablet 11-27 00:00: 00 05-18 00:00 :00 No [id number] 1{tbl} QD TAKE 1 TABLET BY MOUTH EVERY DAY AT NIGHT Kellee pinedo Aripiprazol e 5 MG oral Tablet 11-27 00:00: 00 05-18 00:00 :00 No [id number] 5mg QD TAKE 1 TABLET (5 MG TOTAL) BY MOUTH DAILY. Kellee pinedo Mirtazapine 45 MG oral Tablet 10-28 13:20: 59 Yes [id number] 45mg Take 1 tablet (45 mg total) by mouth nightly. Kellee pinedo Ascorbic Acid 500 MG oral Tablet 10-28 13:20: 47 Yes 50mg Take 50 mg by mouth. Kellee pinedo hydrOXYzine Pamoate 50 MG oral Capsule 10-28 13:20: 47 10-28 00:00 :00 No [id number] 50mg Q.5D Take 1 capsule (50 mg total) by mouth every 4 to 6 hours as needed. Kellee pinedo Sertraline HCl 150 MG oral Capsule 10-28 13:20: 03 10-28 00:00 :00 No 150mg Take 150 mg by mouth daily. Kellee pinedo Doxepin HCl 3 MG oral Tablet 10-28 00:00: 00 Yes [id number] 1{tbl} Take 1 tablet by mouth nightly. Kellee pinedo Aripiprazol e 5 MG oral Tablet 10-28 00:00: 00 Yes [id number] 5mg Take 1 tablet (5 mg total) by mouth daily. Kellee pinedo Suvorexant 10 MG oral Tablet 10-28 00:00: 00 12-02 00:00 :00 No [id number] 1{tbl} Take 1 tablet by mouth nightly. Kellee pinedo Sertraline HCl 50 MG oral Tablet 10-26 00:00: 00 Yes [id number] Kellee pinedo HYDROcodone -acetaminop hen (NORCO) 10-325 mg tablet 1 tablet 10-10 06:15: 00 10-10 05:25 :00 No 1{tbl} 1 tablet, Oral, ONCE NOW, 1 dose, On Sat10/11/23 at 0115, ROSELYN [facility] iopamidol (ISOVUE 370-500 mL) injection 100 mL 10-10 05:00: 00 10-10 05:00 :00 No [id number] 100mL 100 mL, Intravenou s, ONCE, 1 dose, On Sat10/11/23 at 0000, Routine [facility] ketorolac (TORADOL) injection 30 mg 10-10 04:30: 00 10-10 03:29 :00 No 30mg 30 mg, Slow IV Push, ONCE, 1 dose, On [place] 10/10/23 at 2330, Routine [facility] NaCl 0.9% (NS) IV infusion 1,000 mL 10-10 04:15: 00 10-10 05:18 :00 No 1000mL at 999 mL/hr, Intravenou s, ONCE, 1 dose, On [place] 10/10/23 at 2315, Routine [facility] ondansetron (ZOFRAN (PF)) injection 4 mg 10-10 04:00: 00 10-10 03:54 :00 No 4mg 4 mg, Slow IV Push, ONCE, 1 dose, On [place] 10/10/23 at 2300, ROSELYN [facility] morpHINE (4 mg/mL) injection 4 mg 10-10 04:00: 00 10-10 03:54 :00 No 4mg 4 mg, Slow IV Push, ONCE, 1 dose, On [place] 10/10/23 at 2300, STAT [facility] traMADoL (ULTRAM) 50 mg tablet 10-10 00:00: 00 11-01 00:00 :00 No [id number] 50mg Take 1 tablet by mouth every 6 (six) hours as needed for Pain (scale 7-10). Indication s: acute pain [facility] phenazopyri dine 200 mg tablet 10-10 00:00: 00 11-01 00:00 :00 No [id number] 200mg Take 1 tablet by mouth in the morning and 1 tablet at noon and 1 tablet in the evening. [facility] ondansetron (ZOFRAN) 4 mg tablet 10-10 00:00: 00 11-01 00:00 :00 No [id number] 4mg Take 1 tablet by mouth every 8 (eight) hours as needed for Nausea and Vomiting (N/V). [facility] ketorolac 10 mg tablet 10-10 00:00: 11-01 00:00 :00 No [id number] 10mg Take 1 tablet by mouth every 6 (six) hours as needed for Pain (scale 7-10). [facility] Sertraline HCl 100 MG oral Tablet 10-09 00:00: 00 Yes [id number] 100mg Take 1 tablet (100 mg total) by mouth every morning. Kellee pinedo acetaminoph en (TYLENOL) tablet 975 mg 2022-07 04:15: 00 07-02 03:11 :00 No 975mg 975 mg, Oral, ONCE, 1 dose, On Sat07/01/23 at 2215, [facility] dicyclomine (BENTYL) tablet 20 mg 2022-07 03:15: 00 07-02 03:11 :00 No 20mg 20 mg, Oral, ONCE, 1 dose, On Sat07/01/23 at 2115[facility] 30 mg 2022-07 03:15: 00 07-02 02:32 :00 No 30mg 30 mg, Slow IV Push, ONCE, 1 dose, On Sat07/01/23 at 2115, Routine [facility] ondansetron (ZOFRAN (PF)) injection 4 mg 2022-07 03:00: 00 07-02 02:03 :00 No 4mg 4 mg, Slow IV Push, ONCE, 1 dose, On Sat07/01/23 at 2100, [facility] NaCl 0.9% (NS) bolus infusion 1,000 mL 2022-07 03:00: 00 07-02 04:10 :00 No 1000mL at 999 mL/hr, 1,000 mL, IV Infusion, ONCE, 1 dose, On Sat07/01/23 at 2100, STAT [facility] dicyclomine 20 mg tablet 2022-07 00:00: 00 11-01 00:00 :00 No [id number] 20mg Take 1 tablet by mouth 4 (four) times daily. [facility] ondansetron 4 mg disintegrat ing tablet 2022-07 00:00: 00 11-01 00:00 :00 No [id number] 4mg Take 1 tablet by mouth every 4 (four) hours as needed for Nausea and Vomiting (N/V). [facility] Alprazolam (Alprazolam *) 1 Mg TAB Alprazolam (Alprazolam *) 1 Mg TAB 2022-07 12:08: 00 06-14 00:00 :00 No 1mg [facility] Trazodone Hcl (Desyrel 100 Mg*) 100 Mg TAB Trazodone Hcl (Desyrel 100 Mg*) 100 Mg TAB 2022-07 12:07: 00 06-06 12:08 :00 No [facility] Aspirin (Aspirin Ec) [address] Aspirin (Aspirin Ec) [address] 2022-07 11:55: 00 07-07 00:00 :00 No 81mg [facility] Alprazolam (Xanax 2 Mg*) 2 Mg TAB Alprazolam (Xanax 2 Mg*) 2 Mg TAB 2022-07 11:09: 40 06-06 12:08 :00 No 2mg [facility] Trazodone Hcl (Desyrel 300 Mg*) 300 Mg TAB Trazodone Hcl (Desyrel 300 Mg*) 300 Mg TAB 2022-07 11:09: 39 05-13 15:45 :00 No 300 [facility] Alprazolam 1 MG oral Tablet 2022-07 00:00: 00 12-12 00:00 :00 No [id number] 2mg Take 2 tablets (2 mg total) by mouth 2 times daily. Kellee pinedo Pantoprazol e * (Protonix Ec *) 20 Mg Tablet Pantoprazol e * (Protonix Ec *) [address] 2022-07 15:44: 00 06-05 00:28 :00 No 20mg [facility] Sucralfate (Carafate *) 1 Gm TAB Sucralfate (Carafate *) 1 Gm TAB 2022-07 15:44: 00 06-05 00:28 :00 No 1g [facility] Ciprofloxac in Hcl (Cipro *) 500 Mg TAB Ciprofloxac in Hcl (Cipro *) 500 Mg TAB 2022-07 15:44: 00 05-16 00:00 :00 No 500 [facility] Pantoprazol e Sodium 20 MG oral [...] 1 dose, On Sat05/09/23 at 1745, STAT [facility] HYDROcodone -acetaminop hen (NORCO) 10-325 mg tablet 1 tablet 2022-07 02:00: 00 05-01 01:04 :00 No 1{tbl} 1 tablet, Oral, ONCE, 1 dose, On Sat04/30/23 at 2100, Routine [facility] iopamidol (ISOVUE 370-500 mL) injection 100 mL 2022-07 00:45: 00 05-01 00:45 :00 No [id number] 100mL 100 mL, Intravenou s, ONCE, 1 dose, On Sat04/30/23 at 1945, Routine [facility] NaCl 0.9% (NS) bolus infusion 1,000 mL 2022-07 00:00: 00 05-01 00:45 :00 No 1000mL at 999 mL/hr, 1,000 mL, IV Piggyback, ONCE, 1 dose, On Sat04/30/23 at 1900, STAT [facility] proCHLORper azine (COMPAZINE) injection 5 mg 2022-07 23:45: 00 04-30 23:09 :00 No 5mg 5 mg, Slow IV Push, ONCE, 1 dose, On Sat04/30/23 at 1845, ROSELYN [facility] diphenhydrA MINE (BENADRYL) injection 25 mg 2022-07 23:00: 00 04-30 23:09 :00 No 25mg 25 mg, Slow IV Push, ONCE, 1 dose, On Sat04/30/23 at 1800, STAT [facility] dicyclomine 20 mg tablet 2022-07 00:00: 00 07-01 00:00 :00 No [id number] 20mg Take 1 tablet by mouth 4 (four) times daily. [facility] acetaminoph en (TYLENOL) tablet 1,000 mg 2022-07 02:45: 00 04-17 02:43 :00 No 1000mg 1,000 mg, Oral, ONCE, 1 dose, On Sat04/16/23 at 2145, [facility] ond[facility] (ZOFRAN (PF)) injection 4 mg 2022-07 03:15: 00 04-09 02:13 :00 No 4mg 4 mg, Slow IV Push, ONCE, 1 dose, On 04/08/23 at 2215, [facility] dicycl[facility] (BENTYL) tablet 20 mg 2022-07 03:15: 00 04-09 02:16 :00 No 20mg 20 mg, Oral, ONCE, 1 dose, On Sat04/08/23 at 2215, Routine [facility] ondansetron (ZOFRAN (PF)) injection 4 mg 2022-07 23:45: 00 04-08 23:16 :00 No 4mg 4 mg, Slow IV Push, ONCE, 1 dose, On Sat04/08/23 at 1845, [facility] morpHINE (2 mg/mL) injection 4 mg 2022-07 23:45: 00 04-08 23:45 :00 No 4mg 4 mg, Slow IV Push, ONCE, 1 dose, On Sat04/08/23 at 1845, STAT [facility] ondansetron 4 mg disintegrat ing tablet 2022-07 00:00: 00 07-01 00:00 :00 No [id number] 4mg Take 1 tablet by mouth every 8 (eight) hours as needed for Nausea and Vomiting (N/V). [facility] dicyclomine 20 mg tablet 2022-07 00:00: 00 04-30 00:00 :00 No [id number] 20mg Take 1 tablet by mouth 4 (four) times daily. [facility] acetaminoph en (TYLENOL) tablet 1,000 mg 03-10 04:30: 00 03-10 04:29 :00 No 1000mg 1,000 mg, Oral, ONCE, 1 dose, On 03/09/23 at 2330, [facility] iopamidol (ISOVUE 370-500 mL) injection 85 mL 03-10 04:30: 00 03-10 04:30 :00 No [id number] 85mL 85 mL, Intravenou s, ONCE, 1 dose, On 03/09/23 at 2330, Routine [facility] FENTanyl PF (SUBLIMAZE (PF)) injection 75 mcg 03-10 04:00: 00 03-10 02:58 :00 No 75ug 75 mcg, Slow IV Push, ONCE, 1 dose, On 03/09/23 at 2300, STAT [facility] NaCl 0.9% (NS) IV infusion 1,000 mL 03-10 03:00: 00 Yes 1000mL at 20 mL/hr, IV Infusion, CONTINUOUS , Starting on 03/09/23 at 2200, Until Discontinu ed, Routine [facility] ondansetron (ZOFRAN (PF)) injection 4 mg 03-10 02:00: 00 03-10 02:01 :00 No 4mg 4 mg, Slow IV Push, ONCE, 1 dose, On 03/09/23 at 2100, ROSELYN [facility] morpHINE (4 mg/mL) injection 4 mg 03-10 02:00: 00 03-10 02:01 :00 No 4mg 4 mg, Slow IV Push, ONCE, 1 dose, On 03/09/23 at 2100, STAT [facility] polyethylen e glycol 3350 (MIRALAX) 17 gram powder 03-09 00:00: 00 11-01 00:00 :00 No [id number] 1{packe t} Take 1 Packet by mouth once daily as needed for Constipati on. [facility] Simethicone 125 mg 03-09 00:00: 00 11-01 00:00 :00 No [id number] 125mg Take 1 capsule by mouth after meals and at bedtime as needed for Gas. [facility] iopamidol (ISOVUE 370-500 mL) injection 100 mL 03-02 06:15: 00 03-02 06:15 :00 No [id number] 100mL 100 mL, Intravenou s, ONCE, 1 dose, On 03/02/23 at 0115, Routine [facility] NaCl 0.9% (NS) IV infusion 1,000 mL 03-02 05:15: 00 Yes 1000mL at 999 mL/hr, Intravenou s, CONTINUOUS , Starting on 03/02/23 at 0015, Until Discontinu ed, Routine [facility] ketorolac (TORADOL) injection 30 mg 03-02 05:15: 00 03-02 04:20 :00 No 30mg 30 mg, Slow IV Push, ONCE, 1 dose, On 03/02/23 at 0015, Routine [facility] ondansetron (ZOFRAN (PF)) injection 4 mg 03-02 05:00: 00 03-02 05:24 :00 No 4mg 4 mg, Slow IV Push, ONCE, 1 dose, On 03/02/23 at 0000, ROSELYN [facility] morpHINE (4 mg/mL) injection 4 mg 03-02 05:00: 00 03-02 05:24 :00 No 4mg 4 mg, Slow IV Push, ONCE, 1 dose, On 03/02/23 at 0000, STAT [facility] ondansetron (ZOFRAN (PF)) injection 4 mg 03-02 04:15: 00 03-02 04:21 :00 No 4mg 4 mg, Slow IV Push, ONCE, 1 dose, On Sat03/01/23 at 2315, [facility] ondansetron (ZOFRAN) 4 mg tablet 03-02 00:00: 00 11-01 00:00 :00 No [id number] 4mg Take 1 tablet by mouth every 8 (eight) hours as needed for Nausea and Vomiting (N/V). [facility] dicyclomine 20 mg tablet 03-02 00:00: 00 04-30 00:00 :00 No [id number] 20mg Take 1 tablet by mouth every 6 (six) hours as needed for Abdominal pain. [facility] metoclopram tracy HCl (REGLAN) injection 10 mg 02-18 06:45: 00 02-18 06:43 :00 No 10mg 10 mg, Slow IV Push, ONCE, 1 dose, On Sat02/18/23 at 0145, ROSELYN [facility] morpHINE (4 mg/mL) injection 4 mg 02-18 05:30: 00 02-18 05:28 :00 No 4mg 4 mg, Slow IV Push, ONCE, 1 dose, On Sat02/18/23 at 0030, STAT [facility] ondansetron (ZOFRAN (PF)) injection 4 mg 02-18 05:30: 00 02-18 05:28 :00 No 4mg 4 mg, Slow IV Push, ONCE, 1 dose, On Sat02/18/23 at 0030, ROSELYN [facility] NaCl 0.9% (NS) bolus infusion 1,000 mL 02-18 05:30: 00 02-18 05:15 :00 No 1000mL at 999 mL/hr, 1,000 mL, IV Infusion, ONCE, 1 dose, On Sat02/18/23 at 0030, STAT [facility] proMETHazin e (PHENERGAN) 25 mg in NaCl 0.9% (NS) 50 mL IV piggyback 02-18 04:30: 00 02-18 04:28 :00 No 25mg 25 mg, IV Piggyback, ONCE, 1 dose, On Sat02/17/23 at 2330, ROSELYN [facility] proMETHazin e 25 mg tablet 02-18 00:00: 00 11-01 00:00 :00 No [id number] 25mg Take 1 tablet by mouth every 6 (six) hours as needed for Nausea and Vomiting (N/V). [facility] bupropion HCl (WELLBUTRIN ORAL) 02-17 16:23: 24 Yes 150mg Take 150 mg by mouth every morning. [facility] melatonin 10 mg Tab 02-17 16:23: 24 Yes 1{tbl} Take 1 tablet by mouth at bedtime. [facility] trazodone HCl (TRAZODONE ORAL) 02-17 16:23: 24 Yes 400mg Take 400 mg by mouth at bedtime. [facility] ALPRAZOLAM ORAL 02-17 16:23: 24 11-04 00:00 :00 No 2mg Take 2 mg by mouth in the morning and 2 mg in the evening. [facility] escitalopra m oxalate (LEXAPRO) 5 mg tablet 02-17 16:23: 11-01 00:00 :00 No 10mg Take 2 tablets by mouth at bedtime. [facility] topiramate (TOPAMAX) 200 mg tablet 02-17 16:23: 11-01 00:00 :00 No 200mg Take 1 tablet by mouth every evening. [facility] OLANZapine (ZYPREXA) 15 mg tablet 02-17 16:23: 11-01 00:00 :00 No 15mg Take 1 tablet by mouth every evening. [facility] melatonin 10 mg Tab 02-17 16:23: 11-01 00:00 :00 No 10mg Take 1 tablet by mouth at bedtime. [facility] lactated ringers IV infusion 1,000 mL 02-17 02:15: 00 02-17 22:14 :00 No 1000mL at 100 mL/hr, 1,000 mL, IV Infusion, CONTINUOUS , Starting on 02/16/23 at 2115, Until 02/17/23 at 1714, Routine [facility] traZODone (DESYREL) tablet 400 mg 02-17 02:00: 00 Yes 400mg 400 mg, Oral, QHS, First dose on 02/16/23 at 2100, Until Discontinu ed [facility] melatonin (MELATIN) tablet 9 mg 2023-0 8-13 02:00: 00 Yes 9mg 9 mg, Oral, [...] 150 mg, Oral, DAILY, First dose on [facility] 02/16/23 at 0900, Until [...] 02-16 00:30: 00 02-16 00:30 :00 No [id number] 80mL 80 mL, Intravenou s, ONCE, 1 dose, On Sat02/15/23 at 1930, Routine [facility] lactated ringers IV infusion 1,000 mL 02-16 00:00: 00 02-16 03:07 :30 No [id number] 1000mL at 500 mL/hr, 1,000 mL, IV Infusion, CONTINUOUS , Starting on Sat02/15/23 at 1900, Until Sat02/15/23 at 2207, ROSELYN [facility] FENTanyl PF (SUBLIMAZE (PF)) injection 75 mcg 02-15 23:45: 00 02-15 23:13 :00 No [id number] 75ug 75 mcg, Slow IV Push, ONCE, 1 dose, On Sat02/15/23 at 1845, Routine [facility] dicyclomine (BENTYL) injection 20 mg 02-15 22:15: 00 02-15 21:46 :00 No [id number] 20mg 20 mg, Intramuscu lar, ONCE NOW, 1 dose, On Sat02/15/23 at 1715, Routine [facility] LORazepam (ATIVAN) injection 1 mg 02-15 21:45: 00 02-15 21:46 :00 No [id number] 1mg 1 mg, Slow IV Push, ONCE, 1 dose, On Sat02/15/23 at 1645, STAT [facility] ondansetron (ZOFRAN (PF)) injection 4 mg 02-15 21:45: 00 02-15 21:46 :00 No [id number] 4mg 4 mg, Slow IV Push, ONCE, 1 dose, On Sat02/15/23 at 1645, ROSELYN [facility] HYDROcodone -acetaminop hen (NORCO) 10-325 mg tablet 1 tablet 02-15 20:15: 00 02-15 19:52 :00 No [id number] 1{tbl} 1 tablet, Oral, ONCE, 1 dose, On Sat02/15/23 at 1515, Routine [facility] Melatonin 1 mg tablet 02-15 20:08: 23 02-15 00:00 :00 No 10mg Take 10 tablets by mouth every evening. [facility] trazodone HCl (DESYREL ORAL) 02-15 20:06: 33 02-15 00:00 :00 No 200mg Take 200 mg by mouth every evening. [facility] OLANZapine (ZYPREXA) 2.5 mg tablet 02-15 20:05: 48 02-15 00:00 :00 No 2.5mg Take 1 tablet by mouth in the morning and 1 tablet in the evening. [facility] hydrOXYzine (VISTARIL) 50 mg capsule 02-15 20:03: 04 02-15 00:00 :00 No 50mg Take 1 capsule by mouth every 4 (four) hours as needed for Itching. q 4-6 hours as needed [facility] dicyclomine (BENTYL) tablet 20 mg 02-15 19:30: 00 02-15 19:52 :00 No [id number] 20mg 20 mg, Oral, ONCE, 1 dose, On Sat02/15/23 at 1430, ROSELYN [facility] ibuprofen (IBU) tablet 800 mg 02-15 19:30: 00 02-15 19:52 :00 No [id number] 800mg 800 mg, Oral, ONCE, 1 dose, On Sat02/15/23 at 1430, ROSELYN [facility] losartan 50 mg tablet 02-15 13:44: 36 02-15 00:00 :00 No 50mg Take 1 tablet by mouth in the morning. [facility] [place]-3-DHA -EPA-Fish Oil (FISH OIL) 1,000 mg (120 mg-180 mg) Cap 02-15 13:44: 15 02-15 00:00 :00 No 1000mg Take 1,000 mg by mouth daily. [facility] methocarbam oL 750 mg tablet 02-15 13:43: 47 02-15 00:00 :00 No 750mg Take 750 mg by mouth 3 (three) times daily. [facility] FENTanyl PF (SUBLIMAZE (PF)) injection 50 mcg 01-10 00:45: 00 01-09 23:46 :00 No 50ug 50 mcg, Slow IV Push, ONCE, 1 dose, On Sat01/09/22 at 1945, Routine [facility] ketorolac (TORADOL) injection 30 mg 01-09 23:45: 00 01-09 22:48 :00 No 30mg 30 mg, Slow IV Push, ONCE, 1 dose, On Sat01/09/22 at 1845, Routine [facility] aspirin chewable tablet 243 mg 12-14 14:00: 00 Yes 243mg 243 mg, Oral, DAILY, First dose on Sat12/14/21 at 0900, Until Discontinu ed, Routine [facility] ketorolac (TORADOL) injection 15 mg 12-14 08:15: 00 12-14 07:11 :00 No 15mg 15 mg, Slow IV Push, ONCE, 1 dose, On Sat12/14/21 at 0315, ROSELYN [facility] morpHINE (4 mg/mL) injection 4 mg 12-14 05:45: 00 12-14 04:52 :00 No 4mg 4 mg, Slow IV Push, ONCE, 1 dose, On Sat12/14/21 at 0045, STAT [facility] cefTRIAXone (ROCEPHIN) 1,000 mg in NaCl 0.9% (NS) 50 mL MINI-BAG 12-14 05:45: 00 12-14 05:30 :00 No 1000mg 1,000 mg, IV Piggyback, ONCE, 1 dose, On Sat12/14/21 at 0045, Administer over 30 Minutes, 50 mL
Reas on for Anti-Infec tive: Documented Infection< br>Documen kaushik Infection Site: Urine
D uration of Therapy: Other (see Comments) [facility] NaCl 0.9% (NS) bolus infusion 1,000 mL 12-14 05:45: 00 12-14 07:20 :00 No 1000mL at 999 mL/hr, 1,000 mL, IV Infusion, ONCE, 1 dose, On Sat12/14/21 at 0045, ROSELYN [facility] ondansetron (ZOFRAN (PF)) injection 4 mg 12-14 04:45: 00 12-14 03:50 :00 No 4mg 4 mg, Slow IV Push, ONCE, 1 dose, On Sat12/13/21 at 2345, ROSELYN [facility] FENTanyl PF (SUBLIMAZE (PF)) injection 50 mcg 12-14 04:45: 00 12-14 03:50 :00 No 50ug 50 mcg, Slow IV Push, ONCE, 1 dose, On 12/13/21 at 2345, Routine [facility] ALPRAZolam (XANAX) 1 mg tablet 12-14 02:22: 13 Yes 1mg Take 1 mg by mouth 2 (two) times daily. [facility] naproxen 500 mg tablet 12-14 00:00: 00 02-15 00:00 :00 No [id number] 500mg Take 1 tablet by mouth 2 (two) times daily with meals. [facility] cefpodoxime 200 mg tablet 12-14 00:00: 00 12-22 04:59 :00 No [id number] 200mg Take 1 tablet by mouth 2 (two) times daily for 7 days. [facility] LORazepam (ATIVAN) injection 1 mg 11-12 05:00: 00 11-12 04:01 :00 No 1mg 1 mg, Slow IV Push, ONCE, 1 dose, On 11/12/21 at 0000, STAT [facility] ketorolac (TORADOL) injection 30 mg 11-12 03:30: 00 11-12 02:26 :00 No 30mg 30 mg, Slow IV Push, ONCE, 1 dose, On 11/11/21 at 2230, Routine
[employer] team member approving Restricted medication : APPLE WANG [facility] nitroglycer in (NITROSTAT) sublingual tablet 0.4 mg 11-12 03:30: 00 11-12 02:26 :00 No .4mg 0.4 mg, Sublingual , ONCE, 1 dose, On 11/11/21 at 2230, ROSELYN [facility] aspirin E.C. (ECOTRIN) tablet 325 mg 11-12 03:30: 00 11-12 02:25 :00 No 325mg 325 mg, Oral, ONCE, 1 dose, On 11/11/21 at 2230, STAT [facility] morpHINE (4 mg/mL) injection 4 mg 11-12 02:30: 00 11-12 01:40 :00 No 4mg 4 mg, Slow IV Push, ONCE, 1 dose, On 11/11/21 at 2130, STAT [facility] ondansetron (ZOFRAN (PF)) injection [...] 11-11 00:00: 00 04-08 00:00 :00 No [id number] 50mg Take 1 tablet by mouth every 8 (eight) hours as needed for Anxiety. [facility] ketorolac (TORADOL) injection 30 mg 09-12 05:45: 00 09-12 04:54 :00 No 30mg 30 mg, Slow IV Push, ONCE, 1 dose, On Sat09/11/21 at 2345, Routine
[employer] team member approving Restricted medication : APPLE WANG [facility] cefTRIAXone (ROCEPHIN) 1,000 mg in NaCl 0.9% (NS) 50 mL MINI-BAG 09-12 03:45: 00 09-12 03:41 :00 No 1000mg 1,000 mg, IV Piggyback, ONCE, 1 dose, On Sat09/11/21 at 2145, Administer over 30 Minutes, 50 mL
Reas on for Anti-Infec tive: Documented Infection< br>Documen kaushik Infection Site: Urine
D uration of Therapy: 7 days [facility] ondansetron (ZOFRAN (PF)) injection 4 mg 09-12 03:15: 00 09-12 02:39 :00 No 4mg 4 mg, Slow IV Push, ONCE, 1 dose, On Sat09/11/21 at 2115, ROSELYN [facility] morpHINE injection 4 mg 09-12 03:15: 00 09-12 02:39 :00 No 4mg 4 mg, Slow IV Push, ONCE, 1 dose, On Sat09/11/21 at 2115, STAT [facility] iopamidol (ISOVUE 370-500 mL) injection 120 mL 09-12 02:45: 00 09-12 03:00 :00 No [id number] 120mL 120 mL, Intravenou s, ONCE, 1 dose, On Sat09/11/21 at 2100, Routine [facility] sodium chloride (NS) injection 5 mL 09-12 01:33: 26 Yes 5mL 5 mL, Intravenou s, PRN, Starting on Sat09/11/21 at 1933, Until Discontinu ed, Routine, IV line flushing [facility] ibuprofen 600 mg tablet 09-11 00:00: 00 02-15 00:00 :00 No [id number] 600mg Take 1 tablet by mouth every 6 (six) hours as needed for Pain (scale 4-6). [facility] cefdinir 300 mg capsule 09-11 00:00: 00 09-19 04:59 :00 No [id number] 300mg Take 1 capsule by mouth 2 (two) times daily for 7 days. [facility] HYDROcodone -acetaminop hen (NORCO) 10-325 mg tablet 1 tablet 08-15 09:00: 00 08-15 07:59 :00 No 1{tbl} 1 tablet, Oral, ONCE, 1 dose, On Sat08/15/21 at 0300, Routine [facility] FENTanyl PF (SUBLIMAZE (PF)) injection 75 mcg 08-15 07:30: 00 08-15 06:42 :00 No 75ug 75 mcg, Intramuscu lar, ONCE, 1 dose, On Sat08/15/21 at 0130, Routine [facility] methocarbam oL (ROBAXIN) 500 mg tablet 08-15 00:00: 00 Yes [id number] 500mg Take 1 tablet by mouth every 6 (six) hours as needed for Pain (scale 7-10) (MUSCLE SPASM). [facility] traMADoL (ULTRAM) 50 mg tablet 08-15 00:00: 00 11-01 00:00 :00 No [id number] 50mg Take 1 tablet by mouth every 6 (six) hours as needed for Pain (scale 7-10). Indication s: acute pain [facility] Nitrofurant oin&Nit. Macrocryst (MACROBID) 100 mg capsule 08-15 00:00: 00 02-15 00:00 :00 No [id number] 100mg Take 1 capsule by mouth 2 (two) times daily. [facility] morpHINE injection 4 mg 2020-07 08:30: 00 05-28 07:50 :00 No 4mg 4 mg, Slow IV Push, ONCE, 1 dose, On 05/28/21 at 0230, ROSELYN [facility] maalox:diph enhydrAMINE :lidocaine 2 % viscous 1:1:1 ([facility] [place]) oral suspension 15 mL 2020-07 08:00: 00 05-28 07:04 :00 No 15mL 15 mL, Oral, ONCE, 1 dose, On 05/28/21 at 0200, Routine [facility] FENTanyl PF (SUBLIMAZE (PF)) injection 50 mcg 2020-07 07:00: 00 05-28 06:02 :00 No 50ug 50 mcg, Slow IV Push, ONCE, 1 dose, On 05/28/21 at 0100, STAT [facility] famotidine (PEPCID (PF)) injection 20 mg 2020-07 07:00: 00 05-28 06:01 :00 No 20mg 20 mg, Slow IV Push, ONCE, 1 dose, On 05/28/21 at 0100, ROSELYN [facility] famotidine 20 mg tablet 2020-07 00:00: 00 06-13 05:59 :00 No [id number] 20mg Take 1 tablet by mouth 2 (two) times daily for 15 days. [facility] escitalopra m oxalate (LEXAPRO) tablet 10 mg 2020-07 02:00: 00 Yes 10mg 10 mg, Oral, QHS, First dose on 04/08/21 at 2100, Until Discontinu ed, Routine [facility] aspirin 81 mg chewable tablet 2020-07 00:00: 00 05-10 04:59 :00 No [id number] 81mg Take 1 tablet by mouth daily for 30 days. [facility] traZODone (DESYREL) tablet 200 mg 2020-07 22:00: 00 Yes 200mg 200 mg, Oral, QPM, First dose on 04/08/21 at 1700, Until Discontinu ed [facility] topiramate (TOPAMAX) tablet 200 mg 2020-07 22:00: 00 Yes 200mg 200 mg, Oral, QPM, First dose on 04/08/21 at 1700, Until Discontinu ed, Routine
[employer] team member approving Restricted medication : ALEXEY ALEGRE [facility] OLANZapine (ZyPREXA) tablet 15 mg 2020-07 22:00: 00 Yes 15mg 15 mg, Oral, QPM, First dose on 04/08/21 at 1700, Until Discontinu ed, Routine [facility] melatonin (MELATIN) tablet 9 mg 2020-07 22:00: 00 Yes 9mg 9 mg, Oral, QPM, First dose on 04/08/21 at 1700, Until Discontinu ed [facility] methocarbam oL 750 mg tablet 2020-07 17:45: 33 Yes 750mg Take 750 mg by mouth 3 (three) times daily. [facility] [place]-3-DHA -EPA-Fish Oil (FISH OIL) 1,000 mg (120 mg-180 mg) Cap 2020-07 17:45: 33 Yes 1000mg Take 1,000 mg by mouth daily. [facility] hydrOXYzine (VISTARIL) 50 mg capsule 2020-07 17:45: 33 Yes 50mg Take 50 mg by mouth every 4 (four) hours as needed for Itching. q 4-6 hours as needed [facility] losartan 50 mg tablet 2020-07 17:45: 33 Yes 50mg Take 50 mg by mouth daily. [facility] trazodone HCl (DESYREL ORAL) 2020-07 17:45: 33 Yes 200mg Take 200 mg by mouth every evening. [facility] escitalopra m oxalate (LEXAPRO) 5 mg tablet 2020-07 17:45: 33 Yes 10mg Take 10 mg by mouth at bedtime. [facility] Melatonin 1 mg tablet 2020-07 17:45: 33 Yes 10mg Take 10 mg by mouth every evening. [facility] topiramate (TOPAMAX) 200 mg tablet 2020-07 17:45: 33 Yes 200mg Take 200 mg by mouth every evening. [facility] bupropion HCl (WELLBUTRIN ORAL) 2020-07 17:45: 33 Yes 150mg Take 150 mg by mouth every morning. [facility] OLANZapine (ZYPREXA) 15 mg tablet 2020-07 17:45: 33 Yes 15mg Take 15 mg by mouth every evening. [facility] OLANZapine (ZYPREXA) 2.5 mg tablet 2020-07 17:45: 33 Yes 2.5mg Take 2.5 mg by mouth 2 (two) times daily. [facility] furosemide (LASIX) injection 20 mg [...] 04/08/21 at 0900, Until Discontinu ed [facility] aspirin chewable tablet 81 mg 2020-07 14:00: [...] [facility] [place] methocarbam oL (ROBAXIN) tablet 750 mg 2020-07 13:00: 00 Yes 750mg 750 mg, Oral, TID, First dose on 04/08/21 at 0800, Until Discontinu ed, Routine [facility] LORazepam (ATIVAN) injection 0.5 mg 2020-07 04:07: 43 Yes .5mg 0.5 mg, Slow IV Push, PRN, 2 doses, Starting on Sat04/07/21 at 2307, Until Discontinu ed, Routine, Anxiety [facility] hydrOXYzine (ATARAX) tablet 50 mg 2020-07 02:51: 23 Yes 50mg 50 mg, Oral, Q4HPRN, Starting on Sat04/07/21 at 2151, Until Discontinu ed, Itching [facility] LORazepam (ATIVAN) tablet 0.5 mg 2020-07 0 02:05: 29 Yes .5mg 0.5 mg, Oral, PRN, 2 doses, Starting on Sat04/07/21 at 2105, Until Discontinu ed, Routine, Anxiety [facility] morpHINE injection 4 mg 2020-07 0 00:00: [...] 04/08/21 at 1857, Routine, Pain (scale 7-10) [facility] HYDROcodone -acetaminop hen (NORCO 5) 5-325 mg tablet 1 tablet 2020-07 23:58: 00 04-09 23:57 :00 No 1{tbl} 1 tablet, Oral, Q6HPRN, Starting on Sat04/07/21 at 1858, Until 04/09/21 at 1857, Routine, Pain (scale 4-6) [facility] acetaminoph en (TYLENOL) tablet 650 mg 2020-07 23:57: 57 Yes 650mg 650 mg, Oral, Q6HPRN, Starting on Sat04/07/21 at 1857, Until Discontinu ed, Routine, Pain (scale 1-3) [facility] aspirin tablet 325 mg 2020-07 23:00: 00 04-07 21:56 :00 No 325mg 325 mg, Oral, ONCE, 1 dose, On Sat04/07/21 at 1800, STAT [facility] nitroglycer in (NITROSTAT) sublingual tablet 0.4 mg 2020-07 21:51: 01 04-07 22:46 :00 No .4mg 0.4 mg, Sublingual , Q5MIN PRN, 3 doses, Starting on Sat04/07/21 at 1651, Until Discontinu ed, ROSELYN, Chest pain [facility] fluconazole (DIFLUCAN) tablet 150 mg 01-12 14:00: 00 Yes 150mg 150 mg, Oral, DAILY, First dose on [place] 01/12/21 at 0900, Until Discontinu ed, ROSELYN
Re ason for Anti-Infec tive: Empiric Therapy for Suspected Infection< br>Empiric Therapy Site: HEENT
D uration of therapy: 72 hours [facility] cefTRIAXone (ROCEPHIN) 1,000 mg in NaCl 0.9% (NS) 50 mL MINI-BAG 01-12 10:15: 00 01-12 09:49 :00 No 1000mg 1,000 mg, IV Piggyback, ONCE, 1 dose, [place] 01/12/21 at 0515, 50 mL
Reas on for Anti-Infec tive: Empiric Therapy for Suspected Infection< br>Empiric Therapy Site: Urine
D uration of therapy: 72 hours [facility] hydrOXYzine (ATARAX) tablet 25 mg 01-12 10:15: 00 01-12 09:18 :00 No 25mg 25 mg, Oral, ONCE, 1 dose, [place] 01/12/21 at 0515, ROSELYN [facility] HYDROcodone -acetaminop hen (NORCO) 10-325 mg tablet 1 tablet 01-12 10:15: 00 01-12 09:18 :00 No 1{tbl} 1 tablet, Oral, ONCE, 1 dose, [place] 01/12/21 at 0515, Routine [facility] maalox:diph enhydrAMINE :lidocaine2 %viscous 1:1:1: suspension (COMPOUNDED ) 01-12 09:30: 00 01-12 08:25 :00 No 15mL 15 mL, Oral, ONCE, 1 dose, [facility] 01/12/21 at 0430, Routine [facility] cephALEXin (KEFLEX) 500 mg capsule 01-12 00:00: 00 04-07 00:00 :00 No [id number] 500mg Take 1 capsule by mouth 3 (three) times daily. [facility] HYDROcodone -acetaminop hen (NORCO 5) 5-325 mg tablet 1 tablet 12-11 02:00: 00 12-11 01:29 :00 No 1{tbl} 1 tablet, Oral, ONCE, 1 dose, 12/10/20 at 2100, ROSELYN [facility] LORazepam (ATIVAN) injection 1 mg 12-11 00:30: 00 12-10 23:36 :00 No 1mg 1 mg, Slow IV Push, ONCE, 1 dose, 12/10/20 at 1930, STAT [facility] ketorolac (TORADOL) injection 30 mg 12-11 00:30: 00 12-10 23:36 :00 No 30mg 30 mg, Slow IV Push, ONCE, 1 dose, 12/10/20 at 1930, ROSELYN
Fa cult[employer] member approving Restricted medication : EMERGENCY ROOM, [facility] ondansetron (ZOFRAN (PF)) injection 4 mg 12-10 23:45: 00 12-10 22:46 :00 No 4mg 4 mg, Slow IV Push, ONCE, 1 dose, 12/10/20 at 1845, ROSELYN [facility] NaCl 0.9% (NS) bolus infusion 2,000 mL 12-10 22:45: 00 12-11 01:29 :00 No 2000mL at 999 mL/hr, 2,000 mL, IV Infusion, ONCE, 1 dose, 12/10/20 at 1745, ROSELYN [facility] proMETHazin e 25 mg tablet 12-10 00:00: 00 04-07 00:00 :00 No [id number] 12.5mg Take 0.5 tablets by mouth every 6 (six) hours as needed for N/V unresponsi ve to Ondansetro n. [facility] morpHINE injection 4 mg 12-04 22:30: 00 12-04 21:37 :00 No 4mg 4 mg, Slow IV Push, ONCE, 1 dose, 12/04/20 at 1730, STAT [facility] losartan 50 mg tablet 12-04 22:03: 53 Yes 50mg Take 50 mg by mouth daily. [facility] LORazepam (ATIVAN) tablet 1 mg 12-04 21:45: 00 12-04 20:44 :00 No 1mg 1 mg, Oral, ONCE, 1 dose, 12/04/20 at 1645, [facility] ondansetron (ZOFRAN (PF)) injection 4 mg 12-04 21:15: 00 12-04 20:22 :00 No 4mg 4 mg, Slow IV Push, ONCE, 1 dose, 12/04/20 at 1615, [facility] morpHINE injection 4 mg 12-04 21:15: 00 12-04 20:21 :00 No 4mg 4 mg, Slow IV Push, ONCE, 1 dose, 12/04/20 at 1615, STAT [facility] ALPRAZolam (XANAX) 2 mg tablet 11-04 04:24: 19 11-03 00:00 :00 No 2mg Take 2 mg by mouth at bedtime. [facility] LORazepam (ATIVAN) injection 1 mg 11-04 04:00: 00 11-04 02:57 :00 No 1mg 1 mg, Slow IV Push, ONCE, 1 dose, [facility] 11/03/20 at 2300, STAT [facility] LORazepam (ATIVAN) tablet 1 mg 11-04 04:00: 00 11-04 02:57 :00 No 1mg 1 mg, Oral, ONCE, 1 dose, [place] 11/03/20 at 2300, ROSELYN [facility] clonazePAM 0.5 mg tablet 11-01 00:00: 00 04-07 00:00 :00 No .5mg Take 0.5 mg by mouth. [facility] SERTraline 100 mg tablet 11-01 00:00: 00 04-07 00:00 :00 No 100mg Take 100 mg by mouth. [facility] busPIRone 10 mg tablet 10-18 00:00: 00 04-07 00:00 :00 No 10mg Take 10 mg by mouth. [facility] Ciprofloxac in/Dexameth asone (Ciprodex 0.3%-0.1% Otic*) 1 Ea SUSP Ciprofloxac in/Dexameth asone (Ciprodex 0.3%-0.1% Otic*) 1 Ea SUSP 09-19 13:53: 00 09-30 00:00 :00 No [facility] ibuprofen (IBU) tablet 800 mg 09-17 16:55: 00 09-17 16:57 :00 No 800mg 800 mg, Oral, ONCE, 1 dose, 09/17/20 at 1100, ROSELYN [facility] benzonatate 100 mg capsule 09-17 00:00: 00 04-07 00:00 :00 No [id number] 100mg Take 1 capsule by mouth 3 (three) times daily as needed for Cough. [facility] amoxicillin 500 mg capsule 09-17 00:00: 00 09-28 04:59 :00 No [id number] 500mg Take 1 capsule by mouth 3 (three) times daily for 10 days. [facility] HYDROcodone -acetaminop hen (NORCO) 10-325 mg tablet 1 tablet 09-07 07:45: 00 09-07 07:09 :00 No 1{tbl} 1 tablet, Oral, ONCE, 1 dose, 3/3/21 at 0145, Routine [facility] ondansetron (ZOFRAN-ODT ) disintegrat ing tablet 4 mg 09-07 07:15: 00 09-07 07:15 :00 No 4mg 4 mg, Oral, ONCE, 1 dose, Sat09/07/20 at 0130, Routine [facility] ibuprofen 800 mg tablet 09-07 00:00: 00 Yes [id number] 800mg Take 1 tablet by mouth every 8 (eight) hours as needed for Pain (scale 4-6). [facility] ketorolac (TORADOL) injection 30 mg 08-28 10:45: 00 08-28 09:48 :00 No 30mg 30 mg, Slow IV Push, ONCE, 1 dose, 08/28/20 at 0445, Routine
[employer] team member approving Restricted medication : BOB GARCIA [facility] ondansetron (ZOFRAN (PF)) injection 4 mg 08-28 10:00: 00 08-28 09:06 :00 No 4mg 4 mg, Slow IV Push, ONCE, 1 dose, 08/28/20 at 0400, ROSELYN [facility] FENTanyl PF (SUBLIMAZE (PF)) injection 50 mcg 08-28 10:00: 00 08-28 09:07 :00 No 50ug 50 mcg, Slow IV Push, ONCE, 1 dose, 08/28/20 at 0400, Routine [facility] maalox:diph enhydrAMINE :lidocaine 2 % viscous 1:1:1 ([facility]) oral suspension 15 mL 08-28 10:00: 00 08-28 09:07 :00 No 15mL 15 mL, Oral, ONCE, 1 dose, 08/28/20 at 0400, Routine [facility] iohexol (OMNIPAQUE 350 BULK-100 mL) injection 120 mL 08-28 09:30: 00 08-28 09:11 :00 No 120mL 120 mL, Intravenou s, ONCE, 1 dose, 08/28/20 at 0330, Routine [facility] dicyclomine 20 mg tablet 08-28 00:00: 00 04-07 00:00 :00 No [id number] 20mg Take 1 tablet by mouth every 6 (six) hours as needed for Abdominal pain. [facility] ondansetron (ZOFRAN) 4 mg tablet 08-28 00:00: 00 09-17 00:00 :00 No [id number] 4mg Take 1 tablet by mouth every 8 (eight) hours as needed for Nausea and Vomiting (N/V). [facility] FENTanyl PF (SUBLIMAZE (PF)) injection 25 mcg 08-14 19:00: 00 08-14 18:09 :00 No 25ug 25 mcg, Slow IV Push, ONCE, 1 dose, 08/14/20 at 1300, STAT [facility] ondansetron (ZOFRAN (PF)) injection 4 mg 08-14 19:00: 08-14 18:10 :00 No 4mg 4 mg, Slow IV Push, ONCE, 1 dose, 08/14/20 at 1300, ROSELYN [facility] ketorolac (TORADOL) injection 15 mg 08-14 19:00: 00 08-14 18:09 :00 No 15mg 15 mg, Slow IV Push, ONCE, 1 dose, 08/14/20 at 1300, ROSELYN
Fa culty member approving Restricted medication : BEST TAYLOR [facility] piperacilli n-tazobacta m (ZOSYN) 3.375 g in NaCl 0.9% (NS) 100 mL MINI-BAG 08-14 19:00: 00 08-14 18:38 :00 No 3.375g 3.375 g, IV Piggyback, ONCE, 1 dose, 08/14/20 at 1300, 100 mL
Reas on for Anti-Infec tive: Documented Infection< br>Documen kaushik Infection Site: Urine
D uration of Therapy: Other (see Comments) [facility] NaCl 0.9% (NS) bolus infusion 1,000 mL 08-14 19:00: 08-14 19:00 :00 No 1000mL at 999 mL/hr, 1,000 mL, IV Infusion, ONCE, 1 dose, 08/14/20 at 1300, STAT [facility] guaiFENesin 100 mg/5 mL solution 08-14 00:00: 04-07 00:00 :00 No [id number] 100mg Take 5 mL by mouth every 4 (four) hours. [facility] ondansetron 4 mg disintegrat ing tablet 08-14 00:00: 00 09-17 00:00 :00 No [id number] 4mg Take 1 tablet by mouth every 8 (eight) hours as needed for Nausea and Vomiting (N/V). [facility] ibuprofen 600 mg tablet 08-14 00:00: 09-17 00:00 :00 No [id number] 600mg Take 1 tablet by mouth every 6 (six) hours as needed for Pain (scale 4-6). [facility] amoxicillin -clavulanat e 875-125 mg per tablet 08-14 00:00: 00 08-25 05:59 :00 No [id number] 1{tbl} Take 1 tablet by mouth 2 (two) times daily for 10 days. [facility] fluconazole (DIFLUCAN) tablet 150 mg 08-11 15:00: 00 Yes 150mg 150 mg, Oral, DAILY, First dose on Esperanza 08/11/20 at 0900, Until Discontinu ed, ROSELYN
Re ason for Anti-Infec tive: Documented Infection< br>Documen kaushik Infection Site: Urine
D uration of Therapy: Other (see Comments) [facility] HYDROcodone -acetaminop hen (NORCO) 10-325 mg tablet 1 tablet 08-11 05:30: 00 08-11 05:08 :00 No 1{tbl} 1 tablet, Oral, ONCE NOW, 1 dose, Sat08/10/20 at 2330, Routine [facility] FENTanyl PF (SUBLIMAZE (PF)) injection 25 mcg 08-11 04:30: 00 08-11 03:19 :00 No 25ug 25 mcg, Slow IV Push, ONCE, 1 dose, Sat08/10/20 at 2230, STAT [facility] ondansetron (ZOFRAN (PF)) injection 4 mg 08-11 04:15: 00 08-11 03:19 :00 No 4mg 4 mg, Slow IV Push, ONCE, 1 dose, Sat08/10/20 at 2215, ROSELYN [facility] NaCl 0.9% (NS) bolus infusion 1,000 mL 08-11 01:45: 00 08-11 03:45 :00 No 1000mL at 999 mL/hr, 1,000 mL, IV Infusion, ONCE, 1 dose, Sat08/10/20 at 1945, STAT [facility] ketorolac (TORADOL) injection 30 mg 08-11 01:45: 00 08-11 02:31 :00 No 30mg 30 mg, Slow IV Push, ONCE, 1 dose, Sat08/10/20 at 1945, ROSELYN
Fa [facility] member approving Restricted medication : BEST TAYLOR [facility] traMADoL (ULTRAM) 50 mg tablet 08-10 00:00: 00 09-17 00:00 :00 No [id number] 50mg Take 1 tablet by mouth every 6 (six) hours as needed for Pain (scale 7-10). Indication s: acute pain [facility] ibuprofen 800 mg tablet 08-07 00:00: 00 09-17 00:00 :00 No [id number] 800mg Take 1 tablet by mouth every 8 (eight) hours. [facility] amoxicillin 500 mg capsule 08-07 00:00: 00 09-17 00:00 :00 No [id number] 500mg Take 1 capsule by mouth 3 (three) times daily. [facility] traMADoL 50 mg tablet 08-07 00:00: 00 09-17 00:00 :00 No [id number] 50mg Take 1 tablet by mouth every 6 (six) hours as needed for Pain (scale 4-6). Indication s: acute pain [facility] LORazepam (ATIVAN) tablet 1 mg 2019-07 03:15: 00 07-01 02:21 :00 No 1mg 1 mg, Oral, ONCE, 1 dose, Esperanza 06/30/20 at 2115, ROSELYN [facility] FENTanyl PF (SUBLIMAZE (PF)) injection 50 mcg 2019-07 02:30: 00 07-01 01:39 :00 No 50ug 50 mcg, Slow IV Push, ONCE, 1 dose, Esperanza 06/30/20 at 2030, Routine [facility] ondansetron (ZOFRAN-ODT ) disintegrat ing tablet 4 mg 2019-07 01:15: 00 07-01 00:52 :00 No 4mg 4 mg, Oral, ONCE, 1 dose, Esperanza 06/30/20 at 1915, Routine [facility] ketorolac (TORADOL) injection 30 mg 2019-07 01:15: 00 07-01 00:52 :00 No 30mg 30 mg, Slow IV Push, ONCE, 1 dose, Esperanza 06/30/20 at 1915, ROSELYN
Fa culty member approving Restricted medication : ABDIAS ROBERTSON [facility] albuterol 90 mcg/actuati on inhaler 2019-07 00:00: 00 04-07 00:00 :00 No [id number] 2{puff} Inhale 2 Puffs every 4 (four) hours as needed for Wheezing or Shortness of Breath. [facility] hydrOXYzine 25 mg tablet 2019-07 00:00: 00 09-17 00:00 :00 No [id number] 25mg Take 1 tablet by mouth every 6 (six) hours as needed for Anxiety. [facility] naproxen sodium (ANAPROX DS) 550 mg tablet 2019-07 00:00: 00 04-07 00:00 :00 No [id number] 550mg Take 1 tablet by mouth 2 (two) times daily with meals. [facility] methylPREDN ISolone (MEDROL, HEENA,) 4 mg tablets 2019-07 00:00: 00 09-17 00:00 :00 No [id number] Take by mouth SEE-INSTRU CTIONS. follow package directions [facility] methocarbam oL 500 mg tablet 2019-07 00:00: 00 07-04 05:59 :00 No [id number] 500mg Take 1 tablet by mouth 3 (three) times daily for 5 days. [facility] proMETHazin e (PHENERGAN) tablet 25 [...] member approving Restricted medication : LEEANNE WISE [facility] morpHINE injection 4 mg 2019-07 01:30: 00 06-13 00:41 :00 No 4mg 4 mg, Slow IV Push, ONCE, 1 dose, 06/12/20 at 1930, STAT [facility] ondansetron (ZOFRAN (PF)) injection 4 mg 2019-07 00:45: 00 06-13 00:41 :00 No 4mg 4 mg, Slow IV Push, ONCE, 1 dose[facility] 1845[facility] 0.9% (NS) bolus infusion 1,000 mL 2019-07 23:45: 00 06-13 03:54 :00 No 1000mL at 999 mL/hr, 1,000 mL, IV Infusion, ONCE, 1 dose, 06/12/20 at 1745, [facility] dicyclomine 20 mg tablet 2019-07 00:00: 00 04-07 00:00 :00 No [id number] 20mg Take 1 tablet by mouth 4 (four) times daily as needed for Abdominal pain. [facility] proMETHazin e 25 mg tablet 2019-07 00:00: 00 09-17 00:00 :00 No [id number] 25mg Take 1 tablet by mouth every 6 (six) hours as needed for Nausea and Vomiting (N/V). [facility] famotidine 20 mg tablet 2019-07 00:00: 00 06-27 05:59 :00 No [id number] 20mg Take 1 tablet by mouth at bedtime for 14 days. [facility] haloperidol lactate (HALDOL) injection 2.5 mg 2019-07 01:00: 00 05-16 23:51 :00 No 2.5mg 2.5 mg, Intravenou s, ONCE, 1 dose, 05/16/20 at 1900, STAT [facility] NaCl 0.9% (NS) bolus infusion 1,000 mL 2019-07 23:45: 00 05-17 00:54 :00 No 1000mL at 999 mL/hr, 1,000 mL, IV Infusion, ONCE, 1 dose, 05/16/20 at 1745, [facility] proMETHazin e (PHENERGAN) 25 mg suppository 2019-07 00:00: 00 Yes [id number] 25mg Insert 1 Suppositor y into rectum every 4 (four) hours as needed for Nausea and Vomiting (N/V). [facility] ondansetron (ZOFRAN (PF)) injection 4 mg 2019-07 07:30: 00 05-15 06:26 :00 No 4mg 4 mg, Slow IV Push, ONCE, 1 dose, Cameron 05/15/20 at 0130, ROSELYN [facility] iohexol (OMNIPAQUE 350 BULK-100 mL) injection 120 mL 2019-07 07:00: 00 05-15 06:52 :00 No 120mL 120 mL, Intravenou s, ONCE, 1 dose, Cameron 05/15/20 at 0100, Routine [facility] ondansetron (ZOFRAN (PF)) injection 4 mg 2019-07 06:30: 00 05-15 05:52 :00 No 4mg 4 mg, Slow IV Push, ONCE, 1 dose, [place] [facility]20 [facility] 0030[facility] ALPR[facility] (XANAX) 2 mg tablet 2019-07 05:30: 59 Yes 2mg Take 2 mg by mouth at bedtime. [facility] zolpidem 5 mg tablet 12-20 00:00: 00 04-07 00:00 :00 No 5mg Take 5 mg by mouth. [facility] Immunizations Ordered Immunization Name Filled Immunization Name Date Status Comments Source Covid-19 Vaccine Moderna (Spikevax), Mrna-lnp, Zackery Protein, Pf Unknown Completed [facility] External Covid-19 Vaccine Moderna (Spikevax), Mrna-lnp, Zackery Protein, Pf Unknown Completed [facility] - External Covid-19 Vaccine Moderna (Spikevax), Mrna-lnp, Zackery Protein, Pf Unknown Completed [facility] External Covid-19 Vaccine Moderna (Spikevax), Mrna-lnp, Zackery Protein, Pf Unknown Completed [facility] - External Covid-19 Vaccine Moderna (Spikevax), Mrna-lnp, Zackery Protein, Pf Unknown Completed [facility] External Covid-19 Vaccine Moderna (Spikevax), Mrna-lnp, Zackery Protein, Pf Unknown Completed [facility] External Covid-19 Vaccine Moderna (Spikevax), [...] Zackery Protein, Pf Unknown Completed [facility] - External Vital Signs Vital Name Observation Time Observation Value Comments S ource Height 2025-04-02 19:00:00 157.968332 cm [facility] Weight 2025-04-02 19:00:00 104.046164 kg [facility] BMI (Body Mass Index) 2025-04-02 19:00:00 42.1 kg/m2 [facility] Systolic blood pressure 2025-04-02 15:35:00 173 mm[Hg] [facility] Diastolic blood pressure 2025-04-02 15:35:00 152 mm[Hg] [facility] Heart rate 2025-04-02 15:35:00 110 /min [facility] Body temperature 2025-04-02 15:35:00 37.11 Latanya [facility] Respiratory rate 2025-04-02 15:35:00 18 /min [facility] Body height 2025-04-02 15:35:00 157.5 cm [facility] Body weight 2025-04-02 15:35:00 104.327 kg [facility] BMI 2025-04-02 15:35:00 42.07 kg/m2 [facility] Oxygen saturation in Arterial blood by Pulse oximetry 2025-04-02 15:35:00 100 /min [facility] Systolic blood pressure 2025-03-25 22:21:00 162 mm[Hg] [facility] Diastolic blood pressure 2025-03-25 22:21:00 110 mm[Hg] [facility] Heart rate 2025-03-25 22:21:00 120 /min [facility] Body temperature 2025-03-25 22:21:00 37.39 Latanya [facility] Respiratory rate 2025-03-25 22:21:00 18 /min [facility] Body height 2025-03-25 22:21:00 157.5 cm [facility] Body weight 2025-03-25 22:21:00 104.327 kg [facility] BMI 2025-03-25 22:21:00 42.07 kg/m2 [facility] Oxygen saturation in Arterial blood by Pulse oximetry 2025-03-25 22:21:00 98 /min [facility] Systolic blood pressure 2025-03-08 15:46:00 132 mm[Hg] [facility] Diastolic blood pressure 2025-03-08 15:46:00 70 mm[Hg] [facility] Heart rate 2025-03-08 15:46:00 72 /min [facility] Body temperature 2025-03-08 15:46:00 36.67 Latanya [facility] Respiratory rate 2025-03-08 15:46:00 18 /min [facility] Oxygen saturation in Arterial blood by Pulse oximetry 2025-03-08 15:46:00 95 /min [facility] Body weight 2025-03-08 08:08:00 108.5 kg [facility] BMI 2025-03-08 08:08:00 43.75 kg/m2 [facility] Body height 2025-03-08 00:55:00 157.5 cm [facility] Height 2025-03-05 18:20:00 157.523676 cm [facility] Weight 2025-03-05 18:20:00 104.555762 kg [facility] BMI (Body Mass Index) 2025-03-05 18:20:00 42.1 kg/m2 [facility] Systolic blood pressure 2025-03-05 01:00:00 120 mm[Hg] [facility] Diastolic blood pressure 2025-03-05 01:00:00 92 mm[Hg] [facility] Heart rate 2025-03-05 01:00:00 81 /min [facility] Respiratory rate 2025-03-05 01:00:00 17 /min [facility] Oxygen saturation in Arterial blood by Pulse oximetry 2025-03-05 01:00:00 96 /min [facility] Body temperature 2025-03-04 21:32:00 36.72 Latanya [facility] Body height 2025-03-04 21:32:00 157.5 cm [facility] Body weight 2025-03-04 21:32:00 108.863 kg [facility] BMI 2025-03-04 21:32:00 43.90 kg/m2 [facility] Systolic blood pressure 2025-01-07 20:01:00 126 mm[Hg] Kellee Floresold - External Diastolic blood pressure 2025-01-07 20:01:00 [...] Pulse oximetry 2025-01-07 20:01:00 100 /min Kellee Ariasybold - External Systolic blood pressure 2024-12-16 02:02:00 158 mm[Hg] [facility] Diastolic blood pressure 2024-12-16 02:02:00 91 mm[Hg] [facility] Heart rate 2024-12-16 02:02:00 102 /min [facility] Body temperature 2024-12-16 02:02:00 37 Latanya [facility] Respiratory rate 2024-12-16 02:02:00 17 /min [facility] Body height 2024-12-16 02:02:00 157.5 cm [facility] Body weight 2024-12-16 02:02:00 108.863 kg [facility] BMI 2024-12-16 02:02:00 43.90 kg/m2 [facility] Oxygen saturation in Arterial blood by Pulse oximetry 2024-12-16 02:02:00 100 /min [facility] Systolic blood pressure 2024-12-14 21:48:00 136 mm[Hg] [facility] Diastolic blood pressure 2024-12-14 21:48:00 74 mm[Hg] [facility] Heart rate 2024-12-14 21:48:00 88 /min [facility] Body temperature 2024-12-14 21:48:00 36.67 Latanya [facility] Respiratory rate 2024-12-14 21:48:00 16 /min [facility] Oxygen saturation in Arterial blood by Pulse oximetry 2024-12-14 21:48:00 98 /min [facility] Body height 2024-12-14 18:27:00 157.5 cm [facility] Body weight 2024-12-14 18:27:00 108.863 kg [facility] BMI 2024-12-14 18:27:00 43.90 kg/m2 [facility] Height 2024-12-10 18:25:00 157.164051 cm [facility] Weight 2024-12-10 18:25:00 108.964374 kg [facility] BMI (Body Mass Index) 2024-12-10 18:25:00 43.9 kg/m2 [facility] Systolic blood pressure 2024-12-09 02:28:00 129 mm[Hg] [facility] Diastolic blood pressure 2024-12-09 02:28:00 74 mm[Hg] [facility] Heart rate 2024-12-09 02:28:00 88 /min [facility] Respiratory rate 2024-12-09 02:28:00 25 /min [facility] Oxygen saturation in Arterial blood by Pulse oximetry 2024-12-09 02:28:00 95 /min [facility] Body temperature 2024-12-09 00:53:00 36.61 Latanya [facility] Body height 2024-12-09 00:53:00 157.5 cm [facility] Body weight 2024-12-09 00:53:00 108.863 kg [facility] BMI 2024-12-09 00:53:00 43.90 kg/m2 [facility] Systolic blood pressure 2024-11-27 16:12:00 99 mm[Hg] [facility] Diastolic blood pressure 2024-11-27 16:12:00 54 mm[Hg] [facility] Heart rate 2024-11-27 16:12:00 60 /min [facility] Body temperature 2024-11-27 16:12:00 36.28 Latanya [facility] Respiratory rate 2024-11-27 16:12:00 18 /min [facility] Oxygen saturation in Arterial blood by Pulse oximetry 2024-11-27 16:12:00 96 /min [facility] Body height 2024-11-27 03:49:00 157.5 cm [facility] Body weight 2024-11-27 03:49:00 108.41 kg [facility] BMI 2024-11-27 03:49:00 43.71 kg/m2 [facility] Height 2024-11-15 13:18:00 157.419732 cm [facility] Weight 2024-11-15 13:18:00 108.242373 kg [facility] BMI (Body Mass Index) 2024-11-15 13:18:00 43.9 kg/m2 [facility] Systolic blood pressure 2024-11-15 01:43:00 165 mm[Hg] [facility] Diastolic blood pressure 2024-11-15 01:43:00 115 mm[Hg] [facility] Heart rate 2024-11-15 01:43:00 87 /min [facility] Body temperature 2024-11-15 01:43:00 36.72 Latanya [facility] Respiratory rate 2024-11-15 01:43:00 17 /min [facility] Body height 2024-11-15 01:43:00 157.5 cm [facility] Body weight 2024-11-15 01:43:00 108.41 kg [facility] BMI 2024-11-15 01:43:00 43.71 kg/m2 [facility] Oxygen saturation in Arterial blood by Pulse oximetry 2024-11-15 01:43:00 98 /min [facility] Body temperature 2024-11-11 05:30:00 37.17 Latanya [facility] Systolic blood pressure 2024-11-11 05:02:00 141 mm[Hg] [facility] Diastolic blood pressure 2024-11-11 05:02:00 100 mm[Hg] [facility] Heart rate 2024-11-11 05:02:00 76 /min [facility] Respiratory rate 2024-11-11 05:02:00 21 /min [facility] Oxygen saturation in Arterial blood by Pulse oximetry 2024-11-11 05:02:00 96 /min [facility] Body height 2024-11-11 00:53:00 157.5 cm [facility] Body weight 2024-11-11 00:53:00 108.41 kg [facility] BMI 2024-11-11 00:53:00 43.71 kg/m2 [facility] Systolic blood pressure 2024-11-04 19:00:00 134 mm[Hg] [facility] Diastolic blood pressure 2024-11-04 19:00:00 85 mm[Hg] [facility] Heart rate 2024-11-04 19:00:00 86 /min [facility] Body temperature 2024-11-04 19:00:00 36.94 Latanya [facility] Oxygen saturation in Arterial blood by Pulse oximetry 2024-11-04 19:00:00 98 /min [facility] Respiratory rate 2024-11-04 08:24:00 16 /min [facility] Body height 2024-11-03 17:28:00 157.5 cm [facility] Body weight 2024-11-03 17:28:00 108.7 kg [facility] BMI 2024-11-03 17:28:00 43.83 kg/m2 [facility] Systolic blood pressure 2024-11-03 21:17:00 123 mm[Hg] [facility] Diastolic blood pressure 2024-11-03 21:17:00 74 mm[Hg] [facility] Heart rate 2024-11-03 21:17:00 72 /min [facility] Body temperature 2024-11-03 21:17:00 37.11 Latanya [facility] Respiratory rate 2024-11-03 21:17:00 18 /min [facility] Oxygen saturation in Arterial blood by Pulse oximetry 2024-11-03 21:17:00 98 /min [facility] Body height 2024-11-03 17:28:00 157.5 cm [facility] Body weight 2024-11-03 17:28:00 108.7 kg [facility] BMI 2024-11-03 17:28:00 43.83 kg/m2 [facility] Heart rate 2024-10-24 04:50:00 77 /min [facility] Body temperature 2024-10-24 04:50:00 36.83 Latanya [facility] Respiratory rate 2024-10-24 04:50:00 21 /min [facility] Oxygen saturation in Arterial blood by Pulse oximetry 2024-10-24 04:50:00 96 /min [facility] Systolic blood pressure 2024-10-24 04:15:00 146 mm[Hg] [facility] Diastolic blood pressure 2024-10-24 04:15:00 90 mm[Hg] [facility] Body height 2024-10-24 01:16:00 157.5 cm [facility] Body weight 2024-10-24 01:16:00 108.863 kg [facility] BMI 2024-10-24 01:16:00 43.90 kg/m2 [facility] Systolic blood pressure 2024-10-23 15:10:00 132 mm[Hg] Kellee Buckley [facility] Diastolic blood pressure 2024-10-23 15:10:00 82 mm[Hg] [...] 15:10:00 97 /min Kellee Buckley - External BMI (Body Mass Index) 2024-10-14 05:00:00 45.0 kg/m2 [facility] Weight 2024-10-14 03:02:00 112.300 kg [facility] Height 2024-10-13 18:55:00 157.094566 cm [facility] Systolic blood pressure 2024-10-13 07:35:00 135 mm[Hg] [facility] Diastolic blood pressure 2024-10-13 07:35:00 87 mm[Hg] [facility] Heart rate 2024-10-13 07:35:00 86 /min [facility] Body temperature 2024-10-13 07:35:00 36.72 Latanya [facility] Respiratory rate 2024-10-13 07:35:00 19 /min [facility] Oxygen saturation in Arterial blood by Pulse oximetry 2024-10-13 07:35:00 98 /min [facility] Body height 2024-10-13 03:27:00 157.5 cm [facility] Body weight 2024-10-13 03:27:00 104.327 kg [facility] BMI 2024-10-13 03:27:00 42.07 kg/m2 [facility] Body temperature 2024-07-19 07:17:00 36.56 Latanya [facility] Heart rate 2024-07-19 07:14:00 74 /min [facility] Respiratory rate 2024-07-19 07:14:00 27 /min [facility] Oxygen saturation in Arterial blood by Pulse oximetry 2024-07-19 07:14:00 100 /min [facility] Systolic blood pressure 2024-07-19 07:00:00 123 mm[Hg] [facility] Diastolic blood pressure 2024-07-19 07:00:00 93 mm[Hg] [facility] Body height 2024-07-19 04:44:00 157.5 cm [facility] Body weight 2024-07-19 04:44:00 104.327 kg [facility] BMI 2024-07-19 04:44:00 42.07 kg/m2 [facility] Systolic blood pressure 2024-07-04 07:00:00 132 mm[Hg] [facility] Diastolic blood pressure 2024-07-04 07:00:00 98 mm[Hg] [facility] Heart rate 2024-07-04 07:00:00 85 /min [facility] Body temperature 2024-07-04 07:00:00 36.78 Latanya [facility] Respiratory rate 2024-07-04 07:00:00 18 /min [facility] Oxygen saturation in Arterial blood by Pulse oximetry 2024-07-04 07:00:00 94 /min [facility] Body height 2024-07-04 01:53:00 157.5 cm [facility] Body weight 2024-07-04 01:53:00 105.688 kg [facility] BMI 2024-07-04 01:53:00 42.62 kg/m2 [facility] Systolic blood pressure 2024-06-21 08:00:00 180 mm[Hg] [facility] Diastolic blood pressure 2024-06-21 08:00:00 107 mm[Hg] [facility] Heart rate 2024-06-21 08:00:00 89 /min [facility] Body temperature 2024-06-21 08:00:00 37.11 Latanya [facility] Respiratory rate 2024-06-21 08:00:00 22 /min [facility] Body height 2024-06-21 08:00:00 157.5 [facility] [place] Body weight 2024-06-21 08:00:00 108.41 kg [facility] [place] BMI 2024-06-21 08:00:00 43.71 kg/m2 [facility] [place] Oxygen saturation in Arterial blood by Pulse oximetry 2024-06-21 08:00:00 100 /min [facility] [place] Heart rate 2024-06-15 06:22:00 87 /min [facility] [place] Body temperature 2024-06-15 06:22:00 37.11 Latanya [facility] [place] Oxygen saturation in Arterial blood by Pulse oximetry 2024-06-15 06:22:00 96 /min [facility] [place] Systolic blood pressure 2024-06-15 06:00:00 137 mm[Hg] [facility] [place] Diastolic blood pressure 2024-06-15 06:00:00 85 mm[Hg] [facility] [place] Respiratory rate 2024-06-15 06:00:00 15 /min [facility] Body height 2024-06-15 03:23:00 157.5 cm [facility] [place] Body weight 2024-06-15 03:23:00 109.997 kg [facility] [place] BMI 2024-06-15 03:23:00 44.35 kg/m2 [facility] Body temperature 2024-06-07 08:35:48 36.89 Latanya [facility] [place] Systolic blood pressure 2024-06-07 08:00:00 129 mm[Hg] [facility] [place] Diastolic blood pressure 2024-06-07 08:00:00 108 mm[Hg] [facility] Heart rate 2024-06-07 08:00:00 69 /min [facility] [place] Respiratory rate 2024-06-07 08:00:00 24 /min [facility] [place] Oxygen saturation in Arterial blood by Pulse oximetry 2024-06-07 08:00:00 97 /min [facility] [place] Body height 2024-06-07 04:02:00 157.5 cm [facility] Body weight 2024-06-07 04:02:00 105.688 kg [facility] [place] BMI 2024-06-07 04:02:00 42.62 kg/m2 [facility] [place] Systolic blood pressure 2024-05-19 19:32:00 130 mm[Hg] [facility] Diastolic blood pressure 2024-05-19 19:32:00 74 mm[Hg] [facility] Heart rate 2024-05-19 19:32:00 84 /min [facility] Respiratory rate 2024-05-19 19:32:00 18 /min [facility] [place] Oxygen saturation in Arterial blood by Pulse oximetry 2024-05-19 19:32:00 99 /min [facility] Body temperature 2024-05-19 17:44:00 36.83 Latanya [facility] [place] Body height 2024-05-19 17:44:00 157.5 cm [facility] Body weight 2024-05-19 17:44:00 108.863 kg [facility] [place] BMI 2024-05-19 17:44:00 43.90 kg/m2 [facility] [place] Systolic blood pressure 2024-05-18 16:21:00 126 mm[Hg] [...] rate 2024-05-18 04:14:00 111 /min [facility] Body temperature 2024-05-18 04:14:00 37 Latanya [facility] Respiratory rate 2024-05-18 04:14:00 27 /min [facility] Oxygen saturation in Arterial blood by Pulse oximetry 2024-05-18 04:14:00 94 /min [facility] Systolic blood pressure 2024-05-18 04:00:00 141 mm[Hg] [facility] Diastolic blood pressure 2024-05-18 04:00:00 122 mm[Hg] [facility] Body height 2024-05-18 00:33:00 157.5 cm [facility] [place] Body weight 2024-05-18 00:33:00 107.502 kg [facility] BMI 2024-05-18 00:33:00 43.35 kg/m2 [facility] Heart rate 2024-05-08 02:05:00 91 /min [facility] Respiratory rate 2024-05-08 02:05:00 22 /min [facility] Oxygen saturation in Arterial blood by Pulse oximetry 2024-05-08 02:05:00 95 /min [facility] Systolic blood pressure 2024-05-08 02:00:00 140 mm[Hg] [facility] Diastolic blood pressure 2024-05-08 02:00:00 86 mm[Hg] [facility] Body temperature 2024-05-07 23:46:00 36.78 Latanya [facility] Body height 2024-05-07 23:46:00 157.5 cm [facility] Body weight 2024-05-07 23:46:00 107.729 kg [facility] [place] BMI 2024-05-07 23:46:00 43.44 kg/m2 [facility] Height 2024-04-10 16:28:00 157.110731 cm [facility] Weight 2024-04-10 16:28:00 104.903231 kg [facility] BMI (Body Mass Index) 2024-04-10 16:28:00 42.1 kg/m2 [facility] Systolic blood pressure 2024-04-09 01:30:00 134 mm[Hg] [facility] Diastolic blood pressure 2024-04-09 01:30:00 64 mm[Hg] [facility] Heart rate 2024-04-09 01:30:00 102 /min [facility] Body temperature 2024-04-09 01:30:00 36.61 Latanya [facility] [place] Respiratory rate 2024-04-09 01:30:00 17 /min [facility] Oxygen saturation in Arterial blood by Pulse oximetry 2024-04-09 01:30:00 96 /min [facility] [place] Body height 2024-04-08 22:31:00 157.5 cm [facility] [place] Body weight 2024-04-08 22:31:00 104.327 kg [facility] [place] BMI 2024-04-08 22:31:00 42.07 kg/m2 [facility] [place] Body temperature 2023-12-13 14:10:00 36.72 Latanya [facility] [...] pressure 2023-10-11 05:00:00 126 mm[Hg] [facility] Diastolic blood pressure 2023-10-11 05:00:00 87 mm[Hg] [facility] Heart rate 2023-10-11 05:00:00 94 /min [facility] Respiratory rate 2023-10-11 05:00:00 22 /min [facility] Oxygen saturation in Arterial blood by Pulse oximetry 2023-10-11 05:00:00 98 /min [facility] Body temperature 2023-10-11 02:28:00 37.22 Latanya [facility] Body height 2023-10-11 02:28:00 157.5 cm [facility] [place] Body weight 2023-10-11 02:28:00 99.791 kg [facility] [place] BMI 2023-10-11 02:28:00 40.24 kg/m2 [facility] [place] Systolic blood pressure 2023-07-02 04:10:00 147 mm[Hg] [facility] [place] Diastolic blood pressure 2023-07-02 04:10:00 89 mm[Hg] [facility] Heart rate 2023-07-02 04:10:00 73 /min [facility] Respiratory rate 2023-07-02 04:10:00 19 /min [facility] [place] Oxygen saturation in Arterial blood by Pulse oximetry 2023-07-02 04:10:00 98 /min [facility] [place] Body temperature 2023-07-02 01:47:00 36.78 Latanya [facility] [place] Body height 2023-07-02 01:47:00 160 cm [facility] [place] Body weight 2023-07-02 01:47:00 97.659 kg [facility] [place] BMI 2023-07-02 01:47:00 38.14 kg/m2 [facility] [place] Systolic blood pressure 2023-05-10 01:00:00 133 mm[Hg] [facility] [place] Diastolic blood pressure 2023-05-10 01:00:00 81 mm[Hg] [facility] Heart rate 2023-05-10 01:00:00 64 /min [facility] Respiratory rate 2023-05-10 01:00:00 21 /min [facility] Oxygen saturation in Arterial blood by Pulse oximetry 2023-05-10 01:00:00 96 /min [facility] Body temperature 2023-05-09 22:43:00 36.67 Latanya [facility] Body height 2023-05-09 22:43:00 157.5 cm [facility] Body weight 2023-05-09 22:43:00 99.791 kg [facility] [place] BMI 2023-05-09 22:43:00 40.24 kg/m2 [facility] [place] Systolic blood pressure 2023-05-01 01:00:00 107 mm[Hg] [facility] Diastolic blood pressure 2023-05-01 01:00:00 80 mm[Hg] [facility] Heart rate 2023-05-01 01:00:00 80 /min [facility] Body temperature 2023-05-01 01:00:00 37.06 Latanya [facility] [place] Respiratory rate 2023-05-01 01:00:00 16 /min [facility] Oxygen saturation in Arterial blood by Pulse oximetry 2023-05-01 01:00:00 98 /min [facility] [place] Body height 2023-04-30 22:16:00 157.5 cm [facility] Body weight 2023-04-30 22:16:00 95.255 kg [facility] [place] BMI 2023-04-30 22:16:00 38.41 kg/m2 [facility] [place] Systolic blood pressure 2023-04-17 02:00:00 147 mm[Hg] [facility] Diastolic blood pressure 2023-04-17 02:00:00 83 mm[Hg] [facility] Heart rate 2023-04-17 02:00:00 90 /min [facility] Respiratory rate 2023-04-17 02:00:00 18 /min [facility] Oxygen saturation in Arterial blood by Pulse oximetry 2023-04-17 02:00:00 96 /min [facility] Body temperature 2023-04-17 01:33:00 36.78 Latanya [facility] Body height 2023-04-17 01:33:00 157.5 cm [facility] Body weight 2023-04-17 01:33:00 99.791 kg [facility] BMI 2023-04-17 01:33:00 40.24 kg/m2 [facility] Systolic blood pressure 2023-04-09 01:04:48 135 mm[Hg] [facility] Diastolic blood pressure 2023-04-09 01:04:48 84 mm[Hg] [facility] Heart rate 2023-04-09 01:04:48 67 /min [facility] Respiratory rate 2023-04-09 01:04:48 16 /min [facility] Oxygen saturation in Arterial blood by Pulse oximetry 2023-04-09 01:04:48 99 /min [facility] Body temperature 2023-04-08 22:16:00 36.67 Latanya [facility] Body height 2023-04-08 22:16:00 157.5 cm [facility] Body weight 2023-04-08 22:16:00 99.791 kg [facility] BMI 2023-04-08 22:16:00 40.24 kg/m2 [facility] Systolic blood pressure 2023-03-10 05:00:00 156 mm[Hg] [facility] Diastolic blood pressure 2023-03-10 05:00:00 94 mm[Hg] [facility] Heart rate 2023-03-10 05:00:00 75 /min [facility] Respiratory rate 2023-03-10 05:00:00 21 /min [facility] Oxygen saturation in Arterial blood by Pulse oximetry 2023-03-10 05:00:00 97 /min [facility] Body temperature 2023-03-10 01:20:00 36.72 Latanya [facility] Body height 2023-03-10 01:20:00 157.5 cm [facility] Body weight 2023-03-10 01:20:00 100.381 kg [facility] BMI 2023-03-10 01:20:00 40.48 kg/m2 [facility] [place] Systolic blood pressure 2023-03-02 06:00:00 126 mm[Hg] [facility] Diastolic blood pressure 2023-03-02 06:00:00 79 mm[Hg] [facility] Heart rate 2023-03-02 06:00:00 69 /min [facility] Respiratory rate 2023-03-02 06:00:00 23 /min [facility] Oxygen saturation in Arterial blood by Pulse oximetry 2023-03-02 06:00:00 94 /min [facility] Body temperature 2023-03-02 00:34:00 37.28 Latanya [facility] Body height 2023-03-02 00:34:00 157.5 cm [facility] Body weight 2023-03-02 00:34:00 99.791 kg [facility] BMI 2023-03-02 00:34:00 40.24 kg/m2 [facility] Systolic blood pressure 2023-02-18 06:46:00 126 mm[Hg] [facility] Diastolic blood pressure 2023-02-18 06:46:00 77 mm[Hg] [facility] Heart rate 2023-02-18 06:46:00 79 /min [facility] Respiratory rate 2023-02-18 06:46:00 16 /min [facility] Oxygen saturation in Arterial blood by Pulse oximetry 2023-02-18 06:46:00 95 /min [facility] Body temperature 2023-02-18 03:55:00 36.72 Latanya [facility] Body height 2023-02-18 03:55:00 157.5 cm [facility] Body weight 2023-02-18 03:55:00 102.331 kg [facility] BMI 2023-02-18 03:55:00 41.26 kg/m2 [facility] Systolic blood pressure 2023-02-17 16:20:00 113 mm[Hg] [facility] Diastolic blood pressure 2023-02-17 16:20:00 65 mm[Hg] [facility] Heart rate 2023-02-17 16:20:00 65 /min [facility] Body temperature 2023-02-17 16:20:00 36.83 Latanya [facility] Respiratory rate 2023-02-17 16:20:00 16 /min [facility] Oxygen saturation in Arterial blood by Pulse oximetry 2023-02-17 16:20:00 97 /min [facility] Body weight 2023-02-17 08:50:00 99.973 kg [facility] BMI 2023-02-17 08:50:00 40.31 kg/m2 [facility] Body height 2023-02-16 01:19:00 157.5 cm [facility] Systolic blood pressure 2022-01-10 01:24:00 120 mm[Hg] [facility] Diastolic blood pressure 2022-01-10 01:24:00 76 mm[Hg] [facility] Heart rate 2022-01-10 01:24:00 73 /min [facility] Respiratory rate 2022-01-10 01:24:00 16 /min [facility] Oxygen saturation in Arterial blood by Pulse oximetry 2022-01-10 01:24:00 96 /min [facility] Body weight 2022-01-09 21:39:00 104.327 kg [facility] BMI 2022-01-09 21:39:00 42.07 kg/m2 [facility] Systolic blood pressure 2021-12-14 07:22:00 121 mm[Hg] [facility] Diastolic blood pressure 2021-12-14 07:22:00 86 mm[Hg] [facility] Heart rate 2021-12-14 07:22:00 80 /min [facility] Respiratory rate 2021-12-14 07:22:00 17 /min [facility] Oxygen saturation in Arterial blood by Pulse oximetry 2021-12-14 07:22:00 96 /min [facility] Body temperature 2021-12-14 03:06:00 36.72 Latanya [facility] Body height 2021-12-14 03:06:00 157.5 cm [facility] Body weight 2021-12-14 03:06:00 95.255 kg [facility] BMI 2021-12-14 03:06:00 38.41 kg/m2 [facility] Systolic blood pressure 2021-11-12 04:15:00 112 mm[Hg] [facility] Diastolic blood pressure 2021-11-12 04:15:00 75 mm[Hg] [facility] Heart rate 2021-11-12 04:15:00 92 /min [facility] Body temperature 2021-11-12 04:15:00 36.44 Latanya [facility] Respiratory rate 2021-11-12 04:15:00 18 /min [facility] Oxygen saturation in Arterial blood by Pulse oximetry 2021-11-12 04:15:00 98 /min [facility] Body height 2021-11-12 00:41:00 157.5 cm [facility] Body weight 2021-11-12 00:41:00 95.255 kg [facility] BMI 2021-11-12 00:41:00 38.41 kg/m2 [facility] Systolic blood pressure 2021-09-12 01:31:00 142 mm[Hg] [facility] Diastolic blood pressure 2021-09-12 01:31:00 80 mm[Hg] [facility] Heart rate 2021-09-12 01:31:00 78 /min [facility] Body temperature 2021-09-12 01:31:00 36.72 Latanya [facility] Respiratory rate 2021-09-12 01:31:00 18 /min [facility] Body height 2021-09-12 01:31:00 157.5 cm [facility] Body weight 2021-09-12 01:31:00 99.791 kg [facility] BMI 2021-09-12 01:31:00 40.24 kg/m2 [facility] Oxygen saturation in Arterial blood by Pulse oximetry 2021-09-12 01:31:00 97 /min [facility] Systolic blood pressure 2021-08-15 08:20:00 120 mm[Hg] [facility] Diastolic blood pressure 2021-08-15 08:20:00 74 mm[Hg] [facility] Heart rate 2021-08-15 08:20:00 69 /min [facility] Respiratory rate 2021-08-15 08:20:00 20 /min [facility] Oxygen saturation in Arterial blood by Pulse oximetry 2021-08-15 08:20:00 96 /min [facility] Body temperature 2021-08-15 05:34:00 36.22 Latanya [facility] Body height 2021-08-15 05:34:00 157.5 cm [facility] Body weight 2021-08-15 05:34:00 99.791 kg [facility] BMI 2021-08-15 05:34:00 40.24 kg/m2 [facility] Systolic blood pressure 2021-05-28 10:00:00 122 mm[Hg] [facility] Diastolic blood pressure 2021-05-28 10:00:00 78 mm[Hg] [facility] Heart rate 2021-05-28 10:00:00 75 /min [facility] Respiratory rate 2021-05-28 10:00:00 20 /min [facility] Oxygen saturation in Arterial blood by Pulse oximetry 2021-05-28 10:00:00 99 /min [facility] Body temperature 2021-05-28 05:21:00 36.11 Latanya [facility] Body height 2021-05-28 05:21:00 157.5 cm [facility] Body weight 2021-05-28 05:21:00 99.791 kg [facility] BMI 2021-05-28 05:21:00 40.24 kg/m2 [facility] Systolic blood pressure 2021-04-08 21:55:00 110 mm[Hg] [facility] Diastolic blood pressure 2021-04-08 21:55:00 80 mm[Hg] [facility] Heart rate 2021-04-08 21:55:00 70 /min [facility] Body temperature 2021-04-08 21:55:00 36.28 Latanya [facility] Respiratory rate 2021-04-08 21:55:00 16 /min [facility] Oxygen saturation in Arterial blood by Pulse oximetry 2021-04-08 21:55:00 94 /min [facility] Body height 2021-04-08 03:00:00 157.5 cm [facility] Body weight 2021-04-08 03:00:00 105.688 kg [facility] BMI 2021-04-08 03:00:00 42.62 kg/m2 [facility] Systolic blood pressure 2021-01-12 09:00:00 147 mm[Hg] [facility] Diastolic blood pressure 2021-01-12 09:00:00 71 mm[Hg] [facility] Heart rate 2021-01-12 09:00:00 103 /min [facility] Respiratory rate 2021-01-12 09:00:00 18 /min [facility] Oxygen saturation in Arterial blood by Pulse oximetry 2021-01-12 09:00:00 97 /min [facility] Body temperature 2021-01-12 07:48:00 37.06 Latanya [facility] Body height 2021-01-12 07:48:00 157.5 cm [facility] Body weight 2021-01-12 07:48:00 102.513 kg [facility] BMI 2021-01-12 07:48:00 41.34 kg/m2 [facility] Systolic blood pressure 2020-12-11 01:30:00 136 mm[Hg] [facility] Diastolic blood pressure 2020-12-11 01:30:00 88 mm[Hg] [facility] Heart rate 2020-12-11 01:30:00 99 /min [facility] Respiratory rate 2020-12-11 01:30:00 28 /min [facility] Oxygen saturation in Arterial blood by Pulse oximetry 2020-12-11 01:30:00 97 /min [facility] Body temperature 2020-12-10 22:11:00 36.78 Latanya [facility] Body weight 2020-12-10 22:11:00 99.791 kg [facility] BMI 2020-12-10 22:11:00 40.24 kg/m2 [facility] Systolic blood pressure 2020-12-04 21:30:00 126 mm[Hg] [facility] Diastolic blood pressure 2020-12-04 21:30:00 79 mm[Hg] [facility] Heart rate 2020-12-04 21:30:00 91 /min [facility] Respiratory rate 2020-12-04 21:30:00 20 /min [facility] Oxygen saturation in Arterial blood by Pulse oximetry 2020-12-04 21:30:00 96 /min [facility] Body temperature 2020-12-04 19:49:00 37.06 Latanya [facility] Body height 2020-12-04 19:49:00 157.5 cm [facility] Body weight 2020-12-04 19:49:00 99.791 kg [facility] BMI 2020-12-04 19:49:00 40.24 kg/m2 [facility] Systolic blood pressure 2020-11-04 01:42:00 142 mm[Hg] [facility] Diastolic blood pressure 2020-11-04 01:42:00 100 mm[Hg] [facility] Heart rate 2020-11-04 01:42:00 109 /min [facility] Body temperature 2020-11-04 01:42:00 36.78 Latanya [facility] Respiratory rate 2020-11-04 01:42:00 20 /min [facility] Body weight 2020-11-04 01:42:00 99.791 kg [facility] BMI 2020-11-04 01:42:00 40.24 kg/m2 [facility] Oxygen saturation in Arterial blood by Pulse oximetry 2020-11-04 01:42:00 98 /min [facility] Systolic blood pressure 2020-09-17 15:52:00 138 mm[Hg] [facility] Diastolic blood pressure 2020-09-17 15:52:00 94 mm[Hg] [facility] Heart rate 2020-09-17 15:52:00 98 /min [facility] Body temperature 2020-09-17 15:52:00 36.94 Latanya [facility] Respiratory rate 2020-09-17 15:52:00 20 /min [facility] Body weight 2020-09-17 15:52:00 95.255 kg [facility] BMI 2020-09-17 15:52:00 38.41 kg/m2 [facility] Oxygen saturation in Arterial blood by Pulse oximetry 2020-09-17 15:52:00 97 /min [facility] Systolic blood pressure 2020-09-17 15:52:00 138 mm[Hg] [facility] Diastolic blood pressure 2020-09-17 15:52:00 94 mm[Hg] [facility] Heart rate 2020-09-17 15:52:00 98 /min [facility] Body temperature 2020-09-17 15:52:00 36.94 Latanya [facility] Respiratory rate 2020-09-17 15:52:00 20 /min [facility] Body weight 2020-09-17 15:52:00 95.255 kg [facility] BMI 2020-09-17 15:52:00 38.41 kg/m2 [facility] Oxygen saturation in Arterial blood by Pulse oximetry 2020-09-17 15:52:00 97 /min [facility] Systolic blood pressure 2020-09-07 06:35:00 123 mm[Hg] [facility] Diastolic blood pressure 2020-09-07 06:35:00 56 mm[Hg] [facility] Heart rate 2020-09-07 06:35:00 97 /min [facility] Body temperature 2020-09-07 06:35:00 36.28 Latanya [facility] Respiratory rate 2020-09-07 06:35:00 18 /min [facility] Body weight 2020-09-07 06:35:00 99.791 kg [facility] BMI 2020-09-07 06:35:00 40.24 kg/m2 [facility] Oxygen saturation in Arterial blood by Pulse oximetry 2020-09-07 06:35:00 98 /min [facility] Systolic blood pressure 2020-09-07 06:35:00 123 mm[Hg] [facility] Diastolic blood pressure 2020-09-07 06:35:00 56 mm[Hg] [facility] Heart rate 2020-09-07 06:35:00 97 /min [facility] Body temperature 2020-09-07 06:35:00 36.28 Latanya [facility] Respiratory rate 2020-09-07 06:35:00 18 /min [facility] Body weight 2020-09-07 06:35:00 99.791 kg [facility] BMI 2020-09-07 06:35:00 40.24 kg/m2 [facility] Oxygen saturation in Arterial blood by Pulse oximetry 2020-09-07 06:35:00 98 /min [facility] Systolic blood pressure 2020-08-28 09:00:00 132 mm[Hg] [facility] Diastolic blood pressure 2020-08-28 09:00:00 87 mm[Hg] [facility] Heart rate 2020-08-28 09:00:00 90 /min [facility] Respiratory rate 2020-08-28 09:00:00 20 /min [facility] Oxygen saturation in Arterial blood by Pulse oximetry 2020-08-28 09:00:00 97 /min [facility] Body temperature 2020-08-28 07:59:00 36.72 Latanya [facility] Body height 2020-08-28 07:59:00 157.5 cm [facility] Body weight 2020-08-28 07:59:00 99.791 kg [facility] BMI 2020-08-28 07:59:00 40.24 kg/m2 [facility] Systolic blood pressure 2020-08-28 09:00:00 132 mm[Hg] [facility] Diastolic blood pressure 2020-08-28 09:00:00 87 mm[Hg] [facility] Heart rate 2020-08-28 09:00:00 90 /min [facility] Respiratory rate 2020-08-28 09:00:00 20 /min [facility] Oxygen saturation in Arterial blood by Pulse oximetry 2020-08-28 09:00:00 97 /min [facility] Body temperature 2020-08-28 07:59:00 36.72 Latanya [facility] Body height 2020-08-28 07:59:00 157.5 cm [facility] Body weight 2020-08-28 07:59:00 99.791 kg [facility] BMI 2020-08-28 07:59:00 40.24 kg/m2 [facility] Systolic blood pressure 2020-08-14 19:40:00 135 mm[Hg] [facility] Diastolic blood pressure 2020-08-14 19:40:00 100 mm[Hg] [facility] Heart rate 2020-08-14 19:40:00 68 /min [facility] Body temperature 2020-08-14 19:40:00 37.11 Latanya [facility] Respiratory rate 2020-08-14 19:40:00 19 /min [facility] Oxygen saturation in Arterial blood by Pulse oximetry 2020-08-14 19:40:00 99 /min [facility] Body height 2020-08-14 17:41:00 157.5 cm [facility] Body weight 2020-08-14 17:41:00 99.791 kg [facility] BMI 2020-08-14 17:41:00 40.24 kg/m2 [facility] Systolic blood pressure 2020-08-14 19:40:00 135 mm[Hg] [facility] Diastolic blood pressure 2020-08-14 19:40:00 100 mm[Hg] [facility] Heart rate 2020-08-14 19:40:00 68 /min [facility] Body temperature 2020-08-14 19:40:00 37.11 Latanya [facility] Respiratory rate 2020-08-14 19:40:00 19 /min [facility] Oxygen saturation in Arterial blood by Pulse oximetry 2020-08-14 19:40:00 99 /min [facility] Body height 2020-08-14 17:41:00 157.5 cm [facility] Body weight 2020-08-14 17:41:00 99.791 kg [facility] BMI 2020-08-14 17:41:00 40.24 kg/m2 [facility] Systolic blood pressure 2020-08-11 04:00:00 106 mm[Hg] [facility] Diastolic blood pressure 2020-08-11 04:00:00 92 mm[Hg] [facility] Heart rate 2020-08-11 04:00:00 90 /min [facility] Respiratory rate 2020-08-11 04:00:00 16 /min [facility] Oxygen saturation in Arterial blood by Pulse oximetry 2020-08-11 04:00:00 99 /min [facility] Body temperature 2020-08-11 03:12:56 37.72 Latanya [facility] Body height 2020-08-11 00:19:00 157.5 cm [facility] Body weight 2020-08-11 00:19:00 99.791 kg [facility] BMI 2020-08-11 00:19:00 40.24 kg/m2 [facility] Systolic blood pressure 2020-08-11 04:00:00 106 mm[Hg] [facility] Diastolic blood pressure 2020-08-11 04:00:00 92 mm[Hg] [facility] Heart rate 2020-08-11 04:00:00 90 /min [facility] Respiratory rate 2020-08-11 04:00:00 16 /min [facility] Oxygen saturation in Arterial blood by Pulse oximetry 2020-08-11 04:00:00 99 /min [facility] Body temperature 2020-08-11 03:12:56 37.72 Latanya [facility] Body height 2020-08-11 00:19:00 157.5 cm [facility] Body weight 2020-08-11 00:19:00 99.791 kg [facility] BMI 2020-08-11 00:19:00 40.24 kg/m2 [facility] Systolic blood pressure 2020-08-07 13:16:00 100 mm[Hg] [facility] Diastolic blood pressure 2020-08-07 13:16:00 69 mm[Hg] [facility] Heart rate 2020-08-07 13:16:00 99 /min [facility] Body temperature 2020-08-07 13:16:00 36.67 Latanya [facility] Respiratory rate 2020-08-07 13:16:00 18 /min [facility] Body weight 2020-08-07 13:16:00 95.255 kg [facility] BMI 2020-08-07 13:16:00 38.41 kg/m2 [facility] Oxygen saturation in Arterial blood by Pulse oximetry 2020-08-07 13:16:00 99 /min [facility] Systolic blood pressure 2020-08-07 13:16:00 100 mm[Hg] [facility] Diastolic blood pressure 2020-08-07 13:16:00 69 mm[Hg] [facility] Heart rate 2020-08-07 13:16:00 99 /min [facility] Body temperature 2020-08-07 13:16:00 36.67 Latanya [facility] Respiratory rate 2020-08-07 13:16:00 18 /min [facility] Body weight 2020-08-07 13:16:00 95.255 kg [facility] BMI 2020-08-07 13:16:00 38.41 kg/m2 [facility] Oxygen saturation in Arterial blood by Pulse oximetry 2020-08-07 13:16:00 99 /min [facility] Systolic blood pressure 2020-07-01 02:00:00 136 mm[Hg] [facility] Diastolic blood pressure 2020-07-01 02:00:00 85 mm[Hg] [facility] Heart rate 2020-07-01 02:00:00 73 /min [facility] Respiratory rate 2020-07-01 02:00:00 20 /min [facility] Oxygen saturation in Arterial blood by Pulse oximetry 2020-07-01 02:00:00 97 /min [facility] Body temperature 2020-06-30 23:36:00 36.56 Latanya [facility] Body height 2020-06-30 23:36:00 157.5 cm [facility] Body weight 2020-06-30 23:36:00 95.255 kg [facility] BMI 2020-06-30 23:36:00 38.41 kg/m2 [facility] Systolic blood pressure 2020-07-01 02:00:00 136 mm[Hg] [facility] Diastolic blood pressure 2020-07-01 02:00:00 85 mm[Hg] [facility] Heart rate 2020-07-01 02:00:00 73 /min [facility] Respiratory rate 2020-07-01 02:00:00 20 /min [facility] Oxygen saturation in Arterial blood by Pulse oximetry 2020-07-01 02:00:00 97 /min [facility] Body temperature 2020-06-30 23:36:00 36.56 Latanya [facility] Body height 2020-06-30 23:36:00 157.5 cm [facility] Body weight 2020-06-30 23:36:00 95.255 kg [facility] BMI 2020-06-30 23:36:00 38.41 kg/m2 [facility] Systolic blood pressure 2020-06-28 21:57:00 151 mm[Hg] [facility] Diastolic blood pressure 2020-06-28 21:57:00 88 mm[Hg] [facility] Heart rate 2020-06-28 21:57:00 94 /min [facility] Body temperature 2020-06-28 21:57:00 37.78 Latanya [facility] Respiratory rate 2020-06-28 21:57:00 16 /min [facility] Body height 2020-06-28 21:57:00 157.5 cm [facility] Body weight 2020-06-28 21:57:00 95.255 kg [facility] BMI 2020-06-28 21:57:00 38.41 kg/m2 [facility] Oxygen saturation in Arterial blood by Pulse oximetry 2020-06-28 21:57:00 96 /min [facility] Systolic blood pressure 2020-06-28 21:57:00 151 mm[Hg] [facility] Diastolic blood pressure 2020-06-28 21:57:00 88 mm[Hg] [facility] Heart rate 2020-06-28 21:57:00 94 /min [facility] Body temperature 2020-06-28 21:57:00 37.78 Latanya [facility] Respiratory rate 2020-06-28 21:57:00 16 /min [facility] Body height 2020-06-28 21:57:00 157.5 cm [facility] Body weight 2020-06-28 21:57:00 95.255 kg [facility] BMI 2020-06-28 21:57:00 38.41 kg/m2 [facility] Oxygen saturation in Arterial blood by Pulse oximetry 2020-06-28 21:57:00 96 /min [facility] Systolic blood pressure 2020-06-13 03:40:00 122 mm[Hg] [facility] Diastolic blood pressure 2020-06-13 03:40:00 78 mm[Hg] [facility] Heart rate 2020-06-13 03:40:00 90 /min [facility] Respiratory rate 2020-06-13 03:40:00 18 /min [facility] Oxygen saturation in Arterial blood by Pulse oximetry 2020-06-13 03:40:00 94 /min [facility] Body temperature 2020-06-12 23:39:00 37.22 Latanya [facility] Body weight 2020-06-12 23:39:00 97.07 kg [facility] BMI 2020-06-12 23:39:00 39.14 kg/m2 [facility] Systolic blood pressure 2020-06-13 03:40:00 122 mm[Hg] [facility] Diastolic blood pressure 2020-06-13 03:40:00 78 mm[Hg] [facility] Heart rate 2020-06-13 03:40:00 90 /min [facility] Respiratory rate 2020-06-13 03:40:00 18 /min [facility] Oxygen saturation in Arterial blood by Pulse oximetry 2020-06-13 03:40:00 94 /min [facility] Body temperature 2020-06-12 23:39:00 37.22 Latanya [facility] Body weight 2020-06-12 23:39:00 97.07 kg [facility] BMI 2020-06-12 23:39:00 39.14 kg/m2 [facility] Heart rate 2020-05-17 00:40:00 82 /min [facility] Respiratory rate 2020-05-17 00:40:00 18 /min [facility] Oxygen saturation in Arterial blood by Pulse oximetry 2020-05-17 00:40:00 95 /min [facility] Systolic blood pressure 2020-05-17 00:00:00 137 mm[Hg] [facility] Diastolic blood pressure 2020-05-17 00:00:00 93 mm[Hg] [facility] Body temperature 2020-05-16 23:17:00 37.61 Latanya [facility] Body weight 2020-05-16 23:17:00 97.07 kg [facility] BMI 2020-05-16 23:17:00 39.14 kg/m2 [facility] Heart rate 2020-05-17 00:40:00 82 /min [facility] Respiratory rate 2020-05-17 00:40:00 18 /min [facility] Oxygen saturation in Arterial blood by Pulse oximetry 2020-05-17 00:40:00 95 /min [facility] Systolic blood pressure 2020-05-17 00:00:00 137 mm[Hg] [facility] Diastolic blood pressure 2020-05-17 00:00:00 93 mm[Hg] [facility] Body temperature 2020-05-16 23:17:00 37.61 Latanya [facility] Body weight 2020-05-16 23:17:00 97.07 kg [facility] BMI 2020-05-16 23:17:00 39.14 kg/m2 [facility] Systolic blood pressure 2020-05-15 08:50:00 131 mm[Hg] [facility] Diastolic blood pressure 2020-05-15 08:50:00 80 mm[Hg] [facility] Heart rate 2020-05-15 08:50:00 70 /min [facility] Respiratory rate 2020-05-15 08:50:00 18 /min [facility] Oxygen saturation in Arterial blood by Pulse oximetry 2020-05-15 08:50:00 97 /min [facility] Body temperature 2020-05-15 05:29:00 36.44 Latanya [facility] Body height 2020-05-15 05:29:00 157.5 cm [facility] Body weight 2020-05-15 05:29:00 97.07 kg Simultaneous filing. User may not have seen previous data. [facility] BMI 2020-05-15 05:29:00 39.14 kg/m2 [facility] Systolic blood pressure 2020-05-15 08:50:00 131 mm[Hg] [facility] Diastolic blood pressure 2020-05-15 08:50:00 80 mm[Hg] [facility] Heart rate 2020-05-15 08:50:00 70 /min [facility] Respiratory rate 2020-05-15 08:50:00 18 /min [facility] Oxygen saturation in Arterial blood by Pulse oximetry 2020-05-15 08:50:00 97 /min [facility] Body temperature 2020-05-15 05:29:00 36.44 Latanya [facility] Body height 2020-05-15 05:29:00 157.5 cm [facility] Body weight 2020-05-15 05:29:00 97.07 kg Simultaneous filing. User may not have seen previous data. [facility] BMI 2020-05-15 05:29:00 39.14 kg/m2 [facility] Procedures Procedure Date / Time Performed Performing Clinician Source CBC WITH DIFF 2025-03-25 22:43:00 Thai Galo [facility] MAGNESIUM 2025-03-08 05:08:00 Anthony Roman [facility] BASIC METABOLIC PANEL (NA, K, CL, CO2, GLUCOSE, BUN, CREATININE, CA) 2025-03-08 05:08:00 Anthony Roman [facility] CBC WITH DIFF 2025-03-08 05:08:00 Anthony Roman [facility] TROPONIN I 2025-03-08 04:47:00 Anthony Roman [facility] XR CHEST 1 VW 2025-03-07 21:51:06 [facility] 2025-03-07 21:41:00 [facility] 2025-03-07 19:49:00 Amna Mosley Un [facility] TROPONIN I 2025-03-07 19:49:00 Amna Mosley Un [facility] COMP. METABOLIC PANEL ([id number]) 2025-03-07 19:49:00 Amna Mosley [facility] CBC WITH DIFF 2025-03-07 19:49:00 Amna Mosley U [facility] INFLUENZA A/B RSV COVID NAAT 2025-03-07 19:49:00 Amna Mosley [facility] N-TERMINAL PRO-BNP 2025-03-07 19:49:00 Debbie Mosley [facility] HB ECG ROUTINE & RHYTHM STRIP 2025-03-07 18:55:03 Amna Mosley [facility] URINALYSIS 2025-03-07 18:52:00 Amna Mosley Un [facility] CT ABDOMEN PELVIS W CONTRAST 2025-03-04 23:21:21 Ramirez Calderon [facility] URINALYSIS 2025-03-04 23:05:00 Ramirez Calderon Un [facility] POCT TEST 2025-03-04 23:05:00 Laverne Calderon [facility] LIPASE 2025-03-04 21:49:00 Ramirez Calderon Un [facility] TROPONIN I 2025-03-04 21:49:00 Ramirez Calderon Un [facility] COMP. METABOLIC PANEL ([id number]) 2025-03-04 21:49:00 Ramirez Calderon [facility] CBC WITH DIFF 2025-03-04 21:49:00 Ramirez Calderon [facility] POCT TEST 2024-12-14 19:48:00 Kiran Rivero [facility] URINALYSIS 2024-12-14 19:46:00 Kiran Rivero [facility] LIPASE 2024-12-14 19:08:00 Kiran Rivero [facility] COMP. METABOLIC PANEL ([id number]) 2024-12-14 19:08:00 Kiran Rivero [facility] CBC WITH DIFF 2024-12-14 19:08:00 Kiran Rivero [facility] EKG (SCANNED DOCUMENTS) 2024-12-09 20:20:06 Doct or Unassigned, Balmorhea [facility] TROPONIN I 2024-12-09 01:33:00 [facility] COMP. METABOLIC PANEL ([id number]) 2024-12-09 01:33:00 Roberto Richards [facility] CBC WITH DIFF 2024-12-09 01:33:00 Roberto Richards [facility] N-TERMINAL PRO-BNP 2024-12-09 01:33:00 Roberto Richards [facility] MAGNESIUM 2024-11-27 08:21:00 Alexx Kwok [facility] TROPONIN I 2024-11-27 08:21:00 Alexx Kwok [facility] BASIC METABOLIC PANEL (NA, K, CL, CO2, GLUCOSE, BUN, CREATININE, CA) 2024-11-27 08:21:00 Alexx Kwok [facility] LIPID PANEL ([id number])(TOTAL CHOLESTEROL, TRIGLYCERIDES, HDL) 2024-11-27 08:21:00 Alexx Kwok [facility] CBC WITH DIFF 2024-11-27 08:21:00 [facility] 2024-11-27 03:14:00 Alexx Kwok [facility] LIPASE 2024-11-26 23:54:00 Klaudia Narvaez [facility] MAGNESIUM 2024-11-26 23:54:00 Klaudia Narvaez [facility] TROPONIN I 2024-11-26 23:54:00 [facility] COMP. METABOLIC PANEL ([id number]) 2024-11-26 23:54:00 Singer [facility] CBC WITH DIFF 2024-11-26 23:54:00 Singer [facility] N-TERMINAL PRO-BNP 2024-11-26 23:54:00 Singer [facility] XR CHEST 1 VW 2024-11-26 23:28:51 Singer [facility] HB ECG ROUTINE & RHYTHM STRIP 2024-11-26 22:53:55 Singer [facility] URINALYSIS 2024-11-15 01:45:00 [facility] 2024-11-15 01:45:00 Rosario Rios ra [facility] CT ABDOMEN PELVIS W CONTRAST 2024-11-11 04:01:35 Bob Garcia [facility] POCT TEST 2024-11-11 02:26:00 Bob Garcia [facility] LIPASE 2024-11-11 02:23:00 Bob Garcia [facility] COMP. METABOLIC PANEL ([id number]) 2024-11-11 02:23:00 Bob Garcia [facility] CBC WITH DIFF 2024-11-11 02:23:00 Bob Garcia [facility] URINALYSIS 2024-11-11 02:23:00 Bob Garcia [facility] MAGNESIUM 2024-11-04 09:46:00 Corinna Cowan [facility] BASIC METABOLIC PANEL (NA, K, CL, CO2, GLUCOSE, BUN, CREATININE, CA) 2024-11-04 09:46:00 Jean Carlos Cowan [facility] CBC WITH DIFF 2024-11-04 09:46:00 Corinna Cowan [facility] MAGNESIUM 2024-11-04 09:46:00 Corinna Cowan [facility] BASIC METABOLIC PANEL (NA, K, CL, CO2, GLUCOSE, BUN, CREATININE, CA) 2024-11-04 09:46:00 Jean Carlos Cowan [facility] CBC WITH DIFF 2024-11-04 09:46:00 Corinna Cowan [facility] CATH PROCEDURE LOG 2024-11-03 20:05:03 SullyRosario rockwell r [facility] CATH PROCEDURE LOG 2024-11-03 20:05:03 SullyRika rockwellulong U r [facility] CARDIAC CATHETERIZATION 2024-11-03 19:40:00 Sully, Rika uja Ur [facility] CARDIAC CATHETERIZATION 2024-11-03 19:40:00 Sully, Rika uja Ur [facility] CARDIAC CATHETERIZATION 2024-11-03 19:40:00 Sully, Rika uja Ur [facility] CARDIAC CATHETERIZATION 2024-11-03 19:40:00 Sully, Rika uja Ur [facility] CARDIAC CATHETERIZATION 2024-11-03 19:40:00 Sully, Rika uja Ur [facility] CARDIAC CATHETERIZATION 2024-11-03 19:40:00 Sully, Rika uja Ur [facility] ACTIVATED PARTIAL THRMPLAS MARCIO 2024-11-03 14:13:00 Kylah [facility] ACTIVATED PARTIAL THRMPLAS MARCIO 2024-11-03 14:13:00 [facility]24-11-03 11:08:00 Corinna Cowan [facility] BASIC METABOLIC PANEL (NA, K, CL, CO2, GLUCOSE, BUN, CREATININE, CA) 2024-11-03 11:08:00 Jean Carlos Cowan [facility] MAGNESIUM 2024-11-03 11:08:00 Corinna Cowan [facility] BASIC METABOLIC PANEL (NA, K, CL, CO2, GLUCOSE, BUN, CREATININE, CA) 2024-11-03 11:08:00 Jean Carlos Cowan [facility] CBC WITH DIFF 2024-11-03 09:45:00 Corinna Cowan [facility] CBC WITH DIFF 2024-11-03 09:45:00 Corinna Cowan [facility] ACTIVATED PARTIAL THRMPLAS MARCIO 2024-11-03 07:43:00 Ovfrankie, [facility] ACTIVATED PARTIAL THRMPLAS MARCIO 2024-11-03 07:43:00 Ovfrankie, [facility] ACTIVATED PARTIAL THRMPLAS MARCIO 2024-11-03 00:54:00 Ovfrankie, [facility] ACTIVATED PARTIAL THRMPLAS MARCIO 2024-11-03 00:54:00 Kylah, [facility] HB ECG ROUTINE & RHYTHM STRIP 2024-11-02 21:49:21 Rosario Virk [facility] ACTIVATED PARTIAL THRMPLAS MARCIO 2024-11-02 14:41:00 Kylah, [facility] ACTIVATED PARTIAL THRMPLAS MARCIO 2024-11-02 14:41:00 Kylah, [facility] MAGNESIUM 2024-11-02 08:35:00 Hussain [facility] BASIC METABOLIC PANEL (NA, K, CL, CO2, GLUCOSE, BUN, CREATININE, CA) 2024-11-02 08:35:00 Hussain [facility] CBC WITH DIFF 2024-11-02 08:35:00 [facility] ACTIVATED PARTIAL THRMPLAS MARCIO 2024-11-02 08:35:00 [facility] 2024-11-02 08:35:00 Hussain [facility] BASIC METABOLIC PANEL (NA, K, CL, CO2, GLUCOSE, BUN, CREATININE, CA) 2024-11-02 08:35:00 Hussain [facility] CBC WITH DIFF 2024-11-02 08:35:00 [facility] ACTIVATED PARTIAL THRMPLAS MARCIO 2024-11-02 08:35:00 Kylah [facility] MRSA / MSSA SCREEN BY PCRDUKE 2024-11-02 02:11:00 Hussain [facility] MRSA / MSSA SCREEN BY PCR, [facility] 2024-11-02 02:11:00 Hussain [facility] PHOSPHORUS 2024-11-02 02:08:00 Hussain [facility] TROPONIN I 2024-11-02 02:08:00 Brantt [facility] ACTIVATED PARTIAL THRMPLAS MARCIO 2024-11-02 02:08:[facility] 2024-11-02 02:08:00 Brantt [facility] TROPONIN I 2024-11-02 02:08:00 Brantt [facility] ACTIVATED PARTIAL THRMPLAS MARCIO 2024-11-02 02:08:00 [facility] & RHYTHM STRIP 2024-11-01 23:29:25 Hussain [facility] HB ECG ROUTINE & RHYTHM STRIP 2024-11-01 23:29:25 Hussain [facility] URINALYSIS 2024-11-01 19:35:00 Susie Brewer [facility] URINE CULTURE 2024-11-01 19:35:00 Susie Brewer [facility] URINALYSIS 2024-11-01 19:35:00 Susie Brewer [facility] URINE CULTURE 2024-11-01 19:35:00 Susie Brewer [facility] PROTHROMBIN TIME / INR 2024-11-01 19:34:00 Parmjit Montero guerrero [facility] ACTIVATED PARTIAL THRMPLAS MARCIO 2024-11-01 19:34:00 [facility] 2024-11-01 19:34:00 Parmjit Montero guerrero [facility] ACTIVATED PARTIAL THRMPLAS MARCIO 2024-11-01 19:34:00 [facility] (TTE) COMPLETE W/ CONTRAST 2024-11-01 13:44:00 Viviana [facility] TRANSTHORACIC ECHO (TTE) COMPLETE W/ CONTRAST 2024-11-01 13:44:00 Viviana [facility] TROPONIN I 2024-11-01 13:26:00 Viviana [facility] THYROID STIMULATING HORMONE 2024-11-01 13:26:00 Farnaz Nixon [facility] LIPID PANEL ([id number])(TOTAL CHOLESTEROL, TRIGLYCERIDES, HDL) 2024-11-01 13:26:00 Natasha Hernandes [facility] N-TERMINAL PRO-BNP 2024-11-01 13:26:00 Natasha Hernandes [facility] TROPONIN I 2024-11-01 13:26:00 Viviana [facility] THYROID STIMULATING HORMONE 2024-11-01 13:26:00 Farnaz Nixon [facility] LIPID PANEL ([id number])(TOTAL CHOLESTEROL, TRIGLYCERIDES, HDL) 2024-11-01 13:26:00 Natasha Hernandes [facility] N-TERMINAL PRO-BNP 2024-11-01 13:26:00 Natasha Hernandes [facility] INFLUENZA A/B RSV COVID NAAT 2024-11-01 09:35[facility] 2024-11-01 09:35:00 Viviana [facility] INFLUENZA A/B RSV COVID NAAT 2024-11-01 09:35:00 Viviana [facility] LAB ONLY COVID INTERPRETATION 2024-11-01 09:35:00 Viviana [facility] TROPONIN I 2024-11-01 07:17:00 Viviana [facility] BASIC METABOLIC PANEL (NA, K, CL, CO2, GLUCOSE, BUN, CREATININE, CA) 2024-11-01 07:17:00 Viviana [facility] CBC WITH DIFF 2024-11-01 07:17:00 Viviana [facility] GLYCOSYLATED HEMOGLOBIN (A1C) 2024-11-01 07:17:00 Natasha Hernandes [facility] PROCALCITONIN 2024-11-01 07:17:00 Viviana [facility] TROPONIN I 2024-11-01 07:17:00 Viviana [facility] BASIC METABOLIC PANEL (NA, K, CL, CO2, GLUCOSE, BUN, CREATININE, CA) 2024-11-01 07:17:00 Viviana [facility] CBC WITH DIFF 2024-11-01 07:17:00 Viviana [facility] GLYCOSYLATED HEMOGLOBIN (A1C) 2024-11-01 07:17:00 Natasha Hernandes [facility] PROCALCITONIN 2024-11-01 07:17:00 Viviana [facility] XR CHEST 1 VW 2024-11-01 03:19:58 Bob Garcia [facility] XR CHEST 1 VW 2024-11-01 03:19:58 Bob Garcia [facility] LIPASE 2024-11-01 02:53:00 Bob Garcia [facility] TROPONIN I 2024-11-01 02:53:00 Bob Garcia [facility] COMP. METABOLIC PANEL ([id number]) 2024-11-01 02:53:00 Bob Garcia [facility] CBC WITH DIFF 2024-11-01 02:53:00 Bob Garcia [facility] LIPASE 2024-11-01 02:53:00 Bob Garcia [facility] TROPONIN I 2024-11-01 02:53:00 Bob Garcia [facility] COMP. METABOLIC PANEL ([id number]) 2024-11-01 02:53:00 Bob Garcia [facility] CBC WITH DIFF 2024-11-01 02:53:00 Bob Garcia [facility] HB ECG ROUTINE & RHYTHM STRIP 2024-11-01 02:32:05 Bob Garcia [facility] HB ECG ROUTINE & RHYTHM STRIP 2024-11-01 02:32:05 Bob Garcia [facility] CT ABDOMEN PELVIS W CONTRAST 2024-10-24 03:31:17 Juanjose Barker [facility] LIPASE 2024-10-24 01:34:00 Juanjose Barker [facility] COMP. METABOLIC PANEL ([id number]) 2024-10-24 01:34:00 Juanjose Barker [facility] CBC WITH DIFF 2024-10-24 01:34:00 Juanjose Barker [facility] URINALYSIS 2024-10-24 01:34:00 Juanjose Barker [facility] TROPONIN I 2024-10-13 06:39:00 Bob Garcia [facility] LIPASE 2024-10-13 04:20:00 Bob Garcia [facility] TROPONIN I 2024-10-13 04:20:00 Bob Garcia [facility] COMP. METABOLIC PANEL ([id number]) 2024-10-13 04:20:00 Bob Garcia [facility] CBC WITH DIFF 2024-10-13 04:20:00 Bob Garcia [facility] N-TERMINAL PRO-BNP 2024-10-13 04:20:00 Bob Garcia [facility] POCT TEST 2024-10-13 03:46:00 Bob Garcia [facility] URINALYSIS 2024-10-13 03:39:00 Bob Garcia [facility] URINE DRUG (IMMUNOASSAY) - COMPREHENSIVE DRUG SCREEN 2024-07-19 06:11:00 Saleem Edward [facility] URINALYSIS 2024-07-19 06:11:00 Saleem Edward [facility] CT CHEST PULMONARY ANGIOGRAM 2024-07-19 05:46:40 Saleem Edward [facility] MAGNESIUM 2024-07-19 05:08:00 [facility]IN I 2024-07-19 05:08:00 [facility] COMP. METABOLIC PANEL ([id number]) 2024-07-19 05:08:00 Saleem Edward [facility] CBC WITH DIFF 2024-07-19 05:08:00 Saleem Edward [facility] INFLUENZA A/B RSV COVID NAAT 2024-07-19 05:08:00 Saleem Edward [facility] N-TERMINAL PRO-BNP 2024-07-19 05:08:00 Saleem Edward Eleni [facility] CT ABDOMEN PELVIS W CONTRAST 2024-07-04 05:47:[facility]-04 05:33:00 Ross Garcia [facility] LIPASE 2024-07-04 03:23:00 Sandy Garcia [facility] COMP. METABOLIC PANEL ([id number]) 2024-07-04 03:23[facility]00 [facility] 2024-07-04 [facility]-04 03:23:00 [facility] ABDOMEN PELVIS W CONTRAST 2024-06-15 05:33:59 [facility]24-06-15 04:18:00 Sandy Garcia [facility] LIPASE 2024-06-15 04:14:00 [facility] TEST, SERUM 2024-06-15 04:14:00 Laney Garcia [facility] TROPONIN I 2024-06-15 04:14:00 [facility] COMP. METABOLIC PANEL ([id number]) 2024-06-15 04:14:00 [facility] 2024-06-15 04:14:00 Sandy Garcia [facility] TROPONIN I 2024-06-07 07:19:00 Bob Garcia [facility] XR CHEST 1 VW 2024-06-07 05:38:37 Bob Garcia [facility] POCT TEST 2024-06-07 05:19:00 Bob Garcia [facility] URINE DRUG (IMMUNOASSAY) - COMPREHENSIVE DRUG SCREEN 2024-06-07 05:18:00 Bob Garcia [facility] TROPONIN I 2024-06-07 04:10:00 Bob Garcia [facility] COMP. METABOLIC PANEL ([id number]) 2024-06-07 04:10:00 Bob Garcia [facility] CBC WITH DIFF 2024-06-07 04:10:00 Bob Garcia [facility] CT HEAD WO CONTRAST 2024-05-19 18:22:43 Rafal Wright [facility] XR ELBOW <3 VW RIGHT 2024-05-18 02:32:12 Tammy Barrera [facility] XR FOREARM 2 VW RIGHT 2024-05-18 02:32:12 Tammy Moralez [facility] XR HAND 3+ VW RIGHT 2024-05-18 02:32:12 Tammy Casanova [facility] CT CERVICAL SPINE WO CONTRAST 2024-05-18 02:11:45 Tammy Roy [facility] CT MAXILLOFACIAL/MANDIBLE WO CONTRAST 2024-05-18 02:11:45 [facility] 2024-05-08 02:00:00 Saleem Edward [facility] LIPASE 2024-05-08 00:31:00 Saleem Edward [facility] MAGNESIUM 2024-05-08 00:31:00 [facility] TROPONIN I 2024-05-08 00:31:00 Saleem Edward [facility] COMP. METABOLIC PANEL ([id number]) 2024-05-08 00:31:00 Saleem Edward Eleni [facility] CBC WITH DIFF 2024-05-08 00:31:00 Saleem Edward [facility] URINALYSIS 2024-05-08 00:31:00 Saleem Edward [facility] CT ABDOMEN PELVIS WO CONTRAST 2024-04-08 23:45:15 [facility] 2024-04-08 23:01:00 Judy Rojo [facility] LIPASE 2024-04-08 22:47:00 Florentino [facility] COMP. METABOLIC PANEL ([id number]) 2024-04-08 22:47:00 Sophie Rojoherine [facility] CBC WITH DIFF 2024-04-08 22:47:00 Sophie Rojoherine [facility] URINALYSIS 2024-04-08 22:47:00 Florentino [facility] CT ABDOMEN PELVIS W CONTRAST 2023-10-11 04:08:24 Bob Garcia [facility] POCT TEST 2023-10-11 03:40:00 Bob Garcia [facility] LIPASE 2023-10-11 03:25:00 Bob Garcia [facility] COMP. METABOLIC PANEL ([id number]) 2023-10-11 03:25:00 Bob Garcia [facility] CBC WITH DIFF 2023-10-11 03:25:00 [facility] 2023-10-11 03:25:00 Bob Garcia [facility] XR KUB 2023-07-02 03:34:07 [facility] POCT TEST 2023-07-02 02:30:00 Alberta Richards [facility] LIPASE 2023-07-02 02:05:00 Roberto Richards [facility] COMP. METABOLIC PANEL ([id number]) 2023-07-02 02:05:00 Roberto Richards [facility] CBC WITH DIFF 2023-07-02 02:05:00 Roberto Richards [facility] URINALYSIS 2023-07-02 02:05:00 Roberto Richards [facility] URINE DRUG (IMMUNOASSAY) - COMPREHENSIVE DRUG SCREEN W/O REFLEX 2023-07-02 02:05:00 Roberto Richards [facility] CONSENT/REFUSAL FOR DIAGNOSIS AND TREATMENT 2023-07-02 01:43:05 Doctor Unassigned, [place] [facility] LIPASE 2023-05-09 22:47:00 Klaudia Narvaez [facility] COMP. METABOLIC PANEL ([id number]) 2023-05-09 22:47:00 Klaudia Narvaez [facility] CBC WITH DIFF 2023-05-09 22:47:00 Klaudia Narvaez [facility] CONSENT/REFUSAL FOR DIAGNOSIS AND TREATMENT 2023-05-09 22:32:48 Doctor Unassigned, [place] [facility] CT ABDOMEN PELVIS W CONTRAST 2023-04-30 23:47:56 Klaudia Narvaez [facility] COMP. METABOLIC PANEL ([id number]) 2023-04-30 23:08:00 Klaudia Narvaez [facility] CBC WITH DIFF 2023-04-30 23:08:00 Klaudia Narvaez [facility] POCT TEST 2023-04-30 22:59:00 Jaquan Narvaez [facility] URINALYSIS 2023-04-30 22:57:00 Klaudia Narvaez [facility] CONSENT/REFUSAL FOR DIAGNOSIS AND TREATMENT 2023-04-30 22:14:38 Doctor Unassigned, [place] [facility] XR ABDOMEN ACUTE SERIES 2023-04-17 02:13:44 Do minal Richards [facility] POCT TEST 2023-04-17 02:11:00 Alberta Richards [facility] LIPASE 2023-04-17 02:04:00 Roberto Richards [facility] TROPONIN I 2023-04-17 02:04:00 Roberto Richards [facility] COMP. METABOLIC PANEL ([id number]) 2023-04-17 02:04:00 Roberto Richards [facility] CBC WITH DIFF 2023-04-17 02:04:00 Roberto Richards [facility] PROTHROMBIN TIME / INR 2023-04-17 02:04:00 Jalen Richards [facility] ACTIVATED PARTIAL THRMPLAS MARCIO 2023-04-17 02:04:00 Roberto Richards [facility] URINALYSIS 2023-04-17 02:04:00 Roberto Richards [facility] N-TERMINAL PRO-BNP 2023-04-17 02:04:00 Roberto Richards [facility] URINE DRUG (IMMUNOASSAY) - COMPREHENSIVE DRUG SCREEN W/O REFLEX 2023-04-17 02:04:00 Roberto Richards [facility] CONSENT/REFUSAL FOR DIAGNOSIS AND TREATMENT 2023-04-17 01:22:36 Doctor Unassigned, [place] [facility] URINALYSIS 2023-04-09 01:02:00 Saleem Edward [facility] LIPASE 2023-04-08 23:15:00 Saleem Edward [facility] MAGNESIUM 2023-04-08 23:15:00 Saleem Edwarde [facility] TROPONIN I 2023-04-08 23:15:00 Saleem Edward [facility] COMP. METABOLIC PANEL ([id number]) 2023-04-08 23:15:00 Saleem Edward [facility] CBC WITH DIFF 2023-04-08 23:15:00 Saleem Edward [facility] CONSENT/REFUSAL FOR DIAGNOSIS AND TREATMENT 2023-04-08 21:57:42 Doctor Unassigned, [place] [facility] CT ABDOMEN PELVIS W CONTRAST 2023-03-10 03:38:58 Roberto Richards [facility] POCT TEST 2023-03-10 02:51:00 Alberta Richards [facility] URINALYSIS 2023-03-10 01:49:00 Roberto Richards [facility] LIPASE 2023-03-10 01:46:00 Roberto Richards [facility] COMP. METABOLIC PANEL ([id number]) 2023-03-10 01:46:00 Roberto Rihcards [facility] CBC WITH DIFF 2023-03-10 01:46:00 Roberto Richards [facility] CONSENT/REFUSAL FOR DIAGNOSIS AND TREATMENT 2023-03-10 01:36:24 Doctor Unassigned, [place] [facility] CONSENT/REFUSAL FOR DIAGNOSIS AND TREATMENT 2023-03-10 01:14:40 Doctor Unassigned, [place] [facility] CT ABDOMEN PELVIS W CONTRAST 2023-03-02 05:16:35 Bob Garcia [facility] POCT TEST 2023-03-02 03:26:00 Bob Garcia [facility] LIPASE 2023-03-02 03:23:00 Bob Garcia [facility] COMP. METABOLIC PANEL ([id number]) 2023-03-02 03:23:00 Bob Garcia [facility] CBC WITH DIFF 2023-03-02 03:23:00 Bob Garcia [facility] URINALYSIS 2023-03-02 03:23:00 Bob Garcia [facility] CONSENT/REFUSAL FOR DIAGNOSIS AND TREATMENT 2023-03-02 00:22:44 Doctor Unassigned, [place] [facility] CONSENT/REFUSAL FOR DIAGNOSIS AND TREATMENT 2023-02-18 03:44:46 Doctor Unassigned, [place] [facility] LIPASE 2023-02-17 09:28:00 Zay Montero [facility] HEPATIC FUNCTION PANEL ([id number]) (ALB,T.PRO,BILI T,BU/BC,ALT,AST,ALK PHOS) 2023-02-17 09:28:00 Zay Montero [facility] BASIC METABOLIC PANEL (NA, K, CL, CO2, GLUCOSE, BUN, CREATININE, CA) 2023-02-17 09:28:00 Zay Montero [facility] CBC WITH DIFF 2023-02-17 09:28:00 Zay Montero [facility] LIPASE 2023-02-16 18:24:00 Zay Montero [facility] HEPATIC FUNCTION PANEL ([id number]) (ALB,T.PRO,BILI T,BU/BC,ALT,AST,ALK PHOS) 2023-02-16 18:24:00 Kylah [facility] BASIC METABOLIC PANEL (NA, K, CL, CO2, GLUCOSE, BUN, CREATININE, CA) 2023-02-16 18:24:00 Kylah [facility] CBC WITH DIFF 2023-02-16 18:23:00 Zay Montero [facility] CT ABDOMEN PELVIS W CONTRAST 2023-02-15 23:29:00 Leeanne Wise [facility] LIPASE 2023-02-15 21:45:00 Leeanne Wise [facility] COMP. METABOLIC PANEL ([id number]) 2023-02-15 21:45:00 Leeanne Wise [facility] CBC WITH DIFF 2023-02-15 21:45:00 Leeanne Wise [facility] D-DIMER 2023-02-15 19:55:00 Leeanne Wise [facility] URINALYSIS 2023-02-15 19:50:00 Leeanne Wsie [facility] RAPID INFLUENZA A/B 2023-02-15 19:50:00 Leeanne Wise [facility] COVID-19 (ID NOW RAPID TESTING) 2023-02-15 19:50:00 Leeanne Wise [facility] XR CHEST 1 VW 2023-02-15 19:38:00 Leeanne Wise [facility] ASSIGNMENT OF BENEFITS 2023-02-15 19:26:58 Docto r Unassigned, [place] [facility] HB ECG ROUTINE & RHYTHM STRIP 2023-02-15 19:07:40 Leeanne Wise [facility] NOTICE OF PRIVACY PRACTICES 2023-02-15 18:24:07 Doctor Unassigned, [place] [facility] CONSENT/REFUSAL FOR DIAGNOSIS AND TREATMENT 2023-02-15 18:23:04 Doctor Unassigned, [place] [facility] TROPONIN I 2022-01-10 00:32:00 Melida Longoria [facility] TROPONIN I 2022-01-09 22:17:00 [facility] BASIC METABOLIC PANEL (NA, K, CL, CO2, GLUCOSE, BUN, CREATININE, CA) 2022-01-09 22:17:00 Melida Longoria [facility] CBC WITH DIFF 2022-01-09 22:17:00 Melida Longoria [facility] N-TERMINAL PRO-BNP 2022-01-09 22:17:00 Melida Longoria [facility] XR CHEST 1 VW 2022-01-09 22:11:00 Melida Longoria [facility] CONSENT/REFUSAL FOR DIAGNOSIS AND TREATMENT 2022-01-09 21:34:15 Doctor Unassigned, [place] [facility] TROPONIN I 2021-12-14 05:39:00 Wil Mcqueen [facility] XR CHEST 1 VW 2021-12-14 04:39:00 Wil Mcqueen [facility] POCT TEST 2021-12-14 04:20:00 Wil Mcqueen [facility] URINALYSIS 2021-12-14 03:57:00 Wil Mcqueen [facility] LIPASE 2021-12-14 03:43:00 Wil Mcqueen [facility] TROPONIN I 2021-12-14 03:43:00 Wil Mcqueen [facility] FREE T4 2021-12-14 03:43:00 Wil Mcqueen [facility] THYROID STIMULATING HORMONE 2021-12-14 03:43:00 Wil Mcqueen [facility] COMP. METABOLIC PANEL ([id number]) 2021-12-14 03:43:00 Wil Mcqueen [facility] CBC WITH DIFF 2021-12-14 03:43:00 [facility] 2021-12-14 03:43:00 Wil Mcqueen [facility] CONSENT/REFUSAL FOR DIAGNOSIS AND TREATMENT 2021-12-14 02:58:21 Doctor Unassigned, [place] [facility] TROPONIN I 2021-11-12 03:04:00 Apple Wang [facility] POCT TEST 2021-11-12 02:56:00 Tra Wang [facility] URINE DRUG (IMMUNOASSAY) - COMPREHENSIVE DRUG SCREEN 2021-11-12 02:30:00 Apple Wang [facility] URINALYSIS 2021-11-12 02:30:00 Apple Wang [facility] XR CHEST 2 VW 2021-11-12 01:45:03 Apple Wang [facility] LIPASE 2021-11-12 01:34:00 Apple Wang [facility] TROPONIN I 2021-11-12 01:34:00 Apple Wang [facility] COMP. METABOLIC PANEL ([id number]) 2021-11-12 01:34:00 Apple Wang [facility] CBC WITH DIFF 2021-11-12 01:34:00 Apple Wang [facility] N-TERMINAL PRO-BNP 2021-11-12 01:34:00 Mckinley Wang [facility] CONSENT/REFUSAL FOR DIAGNOSIS AND TREATMENT 2021-11-12 00:36:34 Doctor Unassigned, [place] [facility] CT ABDOMEN PELVIS W CONTRAST 2021-09-12 02:49:43 Apple Wang [facility] COVID-19 (ID NOW RAPID TESTING) 2021-09-12 02:23:00 Apple Wang [facility] POCT TEST 2021-09-12 02:21:00 Tra Wang [facility] POCT TEST 2021-09-12 01:45:00 Bob Garcia [facility] URINALYSIS 2021-09-12 01:43:00 Bob Garcia [facility] LIPASE 2021-09-12 01:40:00 Bob Garcia [facility] COMP. METABOLIC PANEL ([id number]) 2021-09-12 01:40:00 Bob Garcia [facility] CBC WITH DIFF 2021-09-12 01:40:00 Bob Garcia [facility] CONSENT/REFUSAL FOR DIAGNOSIS AND TREATMENT 2021-09-12 01:26:55 Doctor Unassigned, [place] [facility] XR LUMBAR SPINE 1 VW 2021-08-15 07:03:00 Angeles Garcia i [facility] URINALYSIS 2021-08-15 06:35:00 Bob Garcia [facility] POCT TEST 2021-08-15 06:35:00 Bob Garcia [facility] NOTICE OF PRIVACY PRACTICES 2021-08-15 06:01:56 Doctor Unassigned, [place] [facility] CONSENT/REFUSAL FOR DIAGNOSIS AND TREATMENT 2021-08-15 05:25:54 Doctor Unassigned, [place] [facility] TROPONIN I 2021-05-28 07:50:00 Cem Choi [facility] D-DIMER 2021-05-28 07:05:00 Cem Choi [facility] XR CHEST 2 VW 2021-05-28 05:46:00 Cem Choi [facility] POCT TEST 2021-05-28 05:32:00 Cem Choi [facility] LIPASE 2021-05-28 05:29:00 Cem Choi [facility] TROPONIN I 2021-05-28 05:29:00 Cem Choi [facility] COMP. METABOLIC PANEL ([id number]) 2021-05-28 05:29:00 Cem Choi [facility] CBC WITH DIFF 2021-05-28 05:29:00 [facility] N-TERMINAL PRO-BNP 2021-05-28 05:29:00 Cem Choi [facility] COVID-19 (ID NOW RAPID TESTING) 2021-05-28 05:29:00 Cem Choi [facility] TROPONIN I 2021-04-08 10:01:00 Apple Page [facility] BASIC METABOLIC PANEL (NA, K, CL, CO2, GLUCOSE, BUN, CREATININE, CA) 2021-04-08 10:01:00 Apple Page [facility] CBC WITH DIFF 2021-04-08 10:01:00 Apple Page [facility] TROPONIN I 2021-04-08 04:12:00 Apple Page [facility] XR CHEST 1 VW 2021-04-07 22:33:33 Roberto Richards [facility] LIPASE 2021-04-07 21:52:00 Roberto Richards [facility] MAGNESIUM 2021-04-07 21:52:00 Apple Page [facility] TROPONIN I 2021-04-07 21:52:00 Roberto Richards [facility] THYROID STIMULATING HORMONE 2021-04-07 21:52:00 Apple Page [facility] COMP. METABOLIC PANEL ([id number]) 2021-04-07 21:52:00 Roberto Richards [facility] LIPID PANEL ([id number])(TOTAL CHOLESTEROL, TRIGLYCERIDES, HDL) 2021-04-07 21:52:00 Apple Page Rocio [facility] CBC WITH DIFF 2021-04-07 21:52:00 Roberto Richards [facility] GLYCOSYLATED HEMOGLOBIN (A1C) 2021-04-07 21:52:00 Apple Page [facility] PROTHROMBIN TIME / INR 2021-04-07 21:52:00 Jalen Richards [facility] ACTIVATED PARTIAL THRMPLAS MARCIO 2021-04-07 21:52:00 Roberto Richards [facility] N-TERMINAL PRO-BNP 2021-04-07 21:52:00 Roberto Richards [facility] COVID-19 (ID NOW RAPID TESTING) 2021-04-07 21:51:00 Roberto Richards [facility] HB ECG ROUTINE & RHYTHM STRIP 2021-04-07 21:38:41 Roberto Richards [facility] CONSENT/REFUSAL FOR DIAGNOSIS AND TREATMENT 2021-04-07 21:17:47 Doctor Unassigned, [place] [facility] CT ABDOMEN PELVIS WO CONTRAST 2021-01-12 08:10:17 Singer Klaudia [facility] POCT TEST 2021-01-12 08:02:00 Jaquan Narvaez [facility] URINALYSIS 2021-01-12 07:58:00 Singer [facility] COMP. METABOLIC PANEL ([id number]) 2021-01-12 07:56:00 Singer [facility] CBC WITH DIFF 2021-01-12 07:56:00 Singer [facility] TROPONIN I 2020-12-11 00:47:00 Mo [facility] XR CHEST 1 VW 2020-12-10 22:40:57 Bal Hassan [facility] POCT TEST 2020-12-10 22:32:00 Suzanna Hassan [facility] URINALYSIS 2020-12-10 22:30:00 Bal Hassan [facility] LIPASE 2020-12-10 22:24:00 Mo [facility] TROPONIN I 2020-12-10 22:24:00 [facility] HE[facility] FUNCTION PANEL ([id number]) (ALB,T.PRO,BILI T,BU/BC,ALT,AST,ALK PHOS) 2020-12-10 22:24:00 Mo [facility] BASIC METABOLIC PANEL (NA, K, CL, CO2, GLUCOSE, BUN, CREATININE, CA) 2020-12-10 22:24:00 Bal Hassan [facility] CBC WITH DIFF 2020-12-10 22:24:00 Bal Hassan [facility] D-DIMER 2020-12-10 22:24:00 Bal Hassan [facility] N-TERMINAL PRO-BNP 2020-12-10 22:24:00 iMrtha Hassan [facility] POCT TEST 2020-12-04 21:18:00 [facility] 2020-12-04 21:17:00 Hernan [facility] LIPASE 2020-12-04 20:20:00 Hernan [facility] TROPONIN I 2020-12-04 20:20:00 Hernan [facility] HEPATIC FUNCTION PANEL ([id number]) (ALB,T.PRO,BILI T,BU/BC,ALT,AST,ALK PHOS) 2020-12-04 20:20:00 Hernan [facility] BASIC METABOLIC PANEL (NA, K, CL, CO2, GLUCOSE, BUN, CREATININE, CA) 2020-12-04 20:20:00 Hernan [facility] CBC WITH DIFF 2020-12-04 20:20:00 Tremaine Becerra [facility] XR CHEST 1 VW 2020-12-04 20:16:54 [facility]+ VW LEFT 2020-12-04 20:16:54 Hernan [facility] CONSENT/REFUSAL FOR DIAGNOSIS AND TREATMENT 2020-12-04 19:43:45 Doctor Unassigned, [place] [facility] XR CHEST 1 VW 2020-11-04 02:24:02 Bob Garcia [facility] URINE DRUG (IMMUNOASSAY) - 4 ER PANEL 2020-11-04 02:19:00 Bob Garcia [facility] URINALYSIS 2020-11-04 02:19:00 Bob Garcia [facility] LIPASE 2020-11-04 02:16:00 Bob Garcia [facility] TROPONIN I 2020-11-04 02:16:00 Bob Garcia [facility] COMP. METABOLIC PANEL ([id number]) 2020-11-04 02:16:00 Bob Garcia [facility] CBC WITH DIFF 2020-11-04 02:16:00 Bob Garcia [facility] PROTHROMBIN TIME / INR 2020-11-04 02:16:00 Lucia Garcia [facility] ACTIVATED PARTIAL THRMPLAS MARCIO 2020-11-04 02:16:00 Bob Garcia [facility] CONSENT/REFUSAL FOR DIAGNOSIS AND TREATMENT 2020-11-04 01:11:16 Doctor Unassigned, [place] [facility] XR CHEST 1 VW 2020-09-17 17:32:21 Leeanne Wise [facility] RAPID STREP SCREEN FOR GROUP A 2020-09-17 16:31:00 Leeanne Wise [facility] COVID-19 (ID NOW RAPID TESTING) 2020-09-17 16:31:00 Leeanne Wise [facility] NOTICE OF PRIVACY PRACTICES 2020-09-17 15:47:38 Doctor Unassigned, [place] [facility] CONSENT/REFUSAL FOR DIAGNOSIS AND TREATMENT 2020-09-17 15:47:07 Doctor Unassigned, [place] [facility] XR FOREARM 2 VW LEFT 2020-09-07 06:59:53 Saleem Edward [facility] XR HAND 3+ VW LEFT 2020-09-07 06:59:53 Saleem Edward [facility] NOTICE OF PRIVACY PRACTICES 2020-09-07 06:06:09 Doctor Unassigned, [place] [facility] CONSENT/REFUSAL FOR DIAGNOSIS AND TREATMENT 2020-09-07 06:03:10 Doctor Unassigned, [place] [facility] CT ABDOMEN PELVIS W CONTRAST 2020-08-28 09:16:08 Bob Garcia [facility] POCT TEST 2020-08-28 08:45:00 Bob Garcia [facility] URINALYSIS 2020-08-28 08:43:00 Bob Garcia [facility] LIPASE 2020-08-28 08:09:00 [facility] METABOLIC PANEL ([id number]) 2020-08-28 08:09:00 Bob Garcia [facility] CBC WITH DIFF 2020-08-28 08:09:00 [facility]W 2020-08-14 18:10:03 Best Taylor [facility] LIPASE 2020-08-14 17:58:00 Best Taylor [facility] TROPONIN I 2020-08-14 17:58:00 Best Taylor [facility] COMP. METABOLIC PANEL ([id number]) 2020-08-14 17:58:00 Best Taylor [facility] CBC WITH DIFF 2020-08-14 17:58:00 Best Taylor [facility] URINALYSIS 2020-08-14 17:58:00 Best Taylor [facility] LACTIC ACID WHOLE BLOOD 2020-08-14 17:58:00 Sophie Taylor [facility] ADC / LCC - DRUG SCREEN TRIAGE 2020-08-14 17:58:00 Best Taylor [facility] CONSENT/REFUSAL FOR DIAGNOSIS AND TREATMENT 2020-08-14 17:33:16 Doctor Unassigned, [place] [facility] CT ABDOMEN PELVIS WO CONTRAST 2020-08-11 04:11:07 Best Taylor [facility] XR CHEST 1 VW 2020-08-11 03:56:48 Best Taylor [facility] POCT TEST 2020-08-11 03:10:00 Best Taylor [facility] BLOOD CULTURE SCREEN 2020-08-11 02:01:00 Best Taylor [facility] BLOOD CULTURE SCREEN 2020-08-11 01:45:00 Best Taylor [facility] LIPASE 2020-08-11 01:45:00 Best Taylor [facility] TROPONIN I 2020-08-11 01:45:00 [facility] HEPATIC FUNCTION PANEL (00735) (ALB,T.PRO,BILI T,BU/BC,ALT,AST,ALK PHOS) 2020-08-11 01:45:00 Best Taylor [facility] BASIC METABOLIC PANEL (NA, K, CL, CO2, GLUCOSE, BUN, CREATININE, CA) 2020-08-11 01:45:00 Best Taylor [facility] CBC WITH DIFF 2020-08-11 01:45:00 Best Taylor [facility] URINALYSIS 2020-08-11 01:45:00 Best Taylor [facility] LACTIC ACID WHOLE BLOOD 2020-08-11 01:45:00 Sophie Taylor [facility] COVID-19 (ID NOW RAPID TESTING) 2020-08-11 01:45:00 Best Taylor [facility] CONSENT/REFUSAL FOR DIAGNOSIS AND TREATMENT 2020-08-11 00:12:54 Doctor Unassigned, [place] [facility] XR FOREARM 2 VW LEFT 2020-08-07 14:03:06 Unique Richards [facility] COVID-19 (ID NOW RAPID TESTING) 2020-08-07 13:35:00 Roberto Richards [facility] NOTICE OF PRIVACY PRACTICES 2020-08-07 13:13:25 Doctor Unassigned, [place] [facility] CONSENT/REFUSAL FOR DIAGNOSIS AND TREATMENT 2020-08-07 13:11:06 Doctor Unassigned, [place] [facility] CONSENT/REFUSAL FOR DIAGNOSIS AND TREATMENT 2020-08-07 13:10:57 Doctor Unassigned, [place] [facility] TROPONIN I 2020-07-01 02:03:00 Abdias Robertson [facility] POCT TEST 2020-07-01 00:51:00 Abdias Robertson [facility] URINALYSIS 2020-07-01 00:48:00 Abdias Robertson [facility] CBC WITH DIFF 2020-07-01 00:12:00 Abdias Robertson [facility] EXTRA TUBE LT. BLUE 2020-07-01 00:12:00 Abdias Robertson [facility] LIPASE 2020-07-01 00:09:00 [facility] TROPONIN I 2020-07-01 00:09:00 Jessica [facility] BASIC METABOLIC PANEL (NA, K, CL, CO2, GLUCOSE, BUN, CREATININE, CA) 2020-07-01 00:09:00 Jessica [facility] ADC,CLC OR LCC ONLY - INFLUENZA A & B DIRECT ANTIGEN 2020-07-01 00:09:00 Jessica [facility] N-TERMINAL PRO-BNP 2020-07-01 00:09:00 Jessica [facility] XR CHEST 1 VW 2020-07-01 00:07:07 Abdias Robertson [facility] NOTICE OF PRIVACY PRACTICES 2020-06-30 23:27:46 Doctor Unassigned, [place] [facility] CT CERVICAL SPINE WO CONTRAST 2020-06-28 23:12:00 Klaudia Narvaez [facility] CONSENT/REFUSAL FOR DIAGNOSIS AND TREATMENT 2020-06-28 21:52:44 Doctor Unassigned, [place] [facility] POCT TEST 2020-06-13 01:50:00 Leeanne Wise [facility] XR CHEST 1 VW 2020-06-13 01:18:17 Leeanne Wise [facility] URINALYSIS 2020-06-13 00:34:00 Leeanne Wise [facility] COVID-19 (ID NOW RAPID TESTING) 2020-06-13 00:34:00 Leeanne Wise [facility] LIPASE 2020-06-13 00:33:00 Leeanne Wise [facility] TROPONIN I 2020-06-13 00:33:00 Mehnaz [facility] HEPATIC FUNCTION PANEL (63164) (ALB,T.PRO,BILI T,BU/BC,ALT,AST,ALK PHOS) 2020-06-13 00:33:00 Leeanne Wise [facility] BASIC METABOLIC PANEL (NA, K, CL, CO2, GLUCOSE, BUN, CREATININE, CA) 2020-06-13 00:33:00 Leeanne Wise [facility] CBC WITH DIFF 2020-06-13 00:33:00 Leeanne Wise [facility] D-DIMER 2020-06-13 00:33:00 Mehnaz [facility] Kristin [facility] CONSENT/REFUSAL FOR DIAGNOSIS AND TREATMENT 2020-06-12 23:27:48 Doctor Unassigned, [place] [facility] COVID-19 (ID NOW RAPID TESTING) 2020-05-16 23:50:00 Bushra Rios [facility] LIPASE 2020-05-16 23:21:00 [facility] FUN[facility] (41854) (ALB,T.PRO,BILI T,BU/BC,ALT,AST,ALK PHOS) 2020-05-16 23:21:00 Bushra Rios [facility] BASIC METABOLIC PANEL (NA, K, CL, CO2, GLUCOSE, BUN, CREATININE, CA) 2020-05-16 23:21:00 Bushra Rios [facility] CBC WITH DIFF 2020-05-16 23:21:00 Bush[facility] ACETAMINOPHEN 2020-05-15 07:42:00 Roberto Richards [facility] CT ABDOMEN PELVIS W CONTRAST 2020-05-15 06:56:53 Roberto Richards [facility] CT HEAD WO CONTRAST 2020-05-15 06:56:27 Alberta Richards [facility] POCT TEST 2020-05-15 05:53:00 Alberta Richards [facility] LIPASE 2020-05-15 05:52:00 Roberto Richards [facility] HEPATIC FUNCTION PANEL (43690) (ALB,T.PRO,BILI T,BU/BC,ALT,AST,ALK PHOS) 2020-05-15 05:52:00 Roberto Richards [facility] BASIC METABOLIC PANEL (NA, K, CL, CO2, GLUCOSE, BUN, CREATININE, CA) 2020-05-15 05:52:00 Roberto Richards [facility] ETHANOL 2020-05-15 05:52:00 Roberto Richards [facility] CBC WITH DIFF 2020-05-15 05:52:00 Roberto Richards [facility] PROTHROMBIN TIME / INR 2020-05-15 05:52:00 Jalen Richards [facility] ACTIVATED PARTIAL THRMPLAS MARCIO 2020-05-15 05:52:00 Roberto Richards [facility] URINALYSIS 2020-05-15 05:52:00 [facility] ADC / LCC - DRUG SCREEN TRIAGE 2020-05-15 05:52:00 Roberto Richards [facility] NOTICE OF PRIVACY PRACTICES 2020-05-15 05:12:38 Doctor Unassigned, [place] [facility] CONSENT/REFUSAL FOR DIAGNOSIS AND TREATMENT 2020-05-15 05:12:26 Doctor Unassigned, [place] [facility] Encounters Start Date/Time End Date/Time Encounter Type Admission Type Attending [facility] Care Facility Care Department Encounter ID Source 2025-04-02 18:57:00 2025-04-02 21:40:00 Emergency ER TY ZAMBRANO [facility] [id number] [facility] 2025-04-02 18:57:00 2025-04-02 21:40:00 Departed Emergency Room [facility] [id number] [facility] 2025-04-02 10:41:00 2025-04-02 12:26:00 Emergency X Roberto Richards [facility] 1.2.840.114 350.1.13.10 4.2.7.2.686 [id number] [facility] 2025-03-30 00:00:00 2025-03-30 00:00:00 Outpatient GISELLE OSORIO [id number] Kellee azra 2025-03-27 14:25:00 2025-03-27 15:26:00 Emergency ER SHERIDAN MCMANUS [facility] [id number] [facility] 2025-03-27 14:25:00 2025-03-27 15:26:00 Departed Emergency Room [facility] [id number] [facility] 2025-03-25 17:28:00 2025-03-25 18:28:00 Emergency X THAI GALO JOSEPH [facility] ERT [id number] [facility] 2025-03-10 00:00:00 2025-03-10 13:04:44 Transition of Care Isael Shelleysa Jamie Kirkland Shelley HUITRONAmi GARCIA PLAKARINA 1.2.840.114 350.1.13.10 4.2.7.2.686 [id number] [facility] 2025-03-07 13:54:00 2025-03-08 13:00:00 Hospital Encounter X ANTHONY ROMAN [facility] [id number] [facility] 2025-03-05 18:14:00 2025-03-05 20:55:00 Departed Emergency Room [facility] [id number] 54 [facility] 2025-03-05 18:14:00 2025-03-05 20:55:00 Emergency ER RYAN MIRANDA [facility] [id number] [facility] 2025-03-04 16:32:00 2025-03-04 20:18:00 Emergency X RAMIREZ CALDERON [facility] ERT [id number] [facility] 2025-03-02 00:00:00 2025-03-02 00:00:00 Outpatient VAHE DURAND KELLEE [id number] [facility] 2025-02-15 10:00:00 2025-02-15 10:00:00 Outpatient CHRISTINA PAGE KELLEE [id number] [facility] 2025-01-22 10:20:00 2025-01-22 10:20:00 Outpatient CYNTHIA ROMEO KELLEE KELLEE [id number] [facility] 2025-01-16 00:00:00 2025-01-16 00:00:00 Outpatient RIDDHI MONTES KELLEE KELLEE [id number] [facility] 2025-01-07 15:00:00 2025-01-07 15:00:00 Outpatient VAHE DURAND KELLEE KELLEE [id number] [facility] 2025-01-07 00:00:00 2025-01-07 00:00:00 Outpatient NAY ALMONTE KELLEE [id number] [facility] 2024-12-20 00:00:00 2024-12-20 00:00:00 Outpatient RIDDHI MONTES KELLEE DORMAN [id number] [facility] 2024-12-17 10:00:00 2024-12-17 10:00:00 Outpatient SAIRAKESHIANEO FERNANDES KELLEE DORMAN [id number] [facility] 2024-12-16 13:30:00 2024-12-16 13:30:00 Outpatient RIDDHI MONTES KELLEE DORMAN [id number] [facility] 2024-12-15 21:04:00 2024-12-15 22:54:00 Emergency BOB WAYNE WAKILI [facility] E[facility] [id number] [facility] 2024-12-14 13:31:00 2024-12-14 16:50:00 Emergency Kiran Rivero [facility] 1.2.840.114 350.1.13.10 4.2.7.2.686 [id number] [facility] 2024-12-10 18:18:00 2024-12-10 21:28:00 Emergency ER ARELIS KERN [facility] [id number] [facility] 2024-12-10 18:18:00 2024-12-10 21:28:00 Departed Emergency Room [facility] [id number] 78 [facility] 2024-12-09 00:00:00 2024-12-10 02:04:16 Orders Only Doctor Unassigned, [place] Doctor Unassigned, [place] [facility] ..840.114 350.1.13.10 4.2.7.2.686 [id number] [facility] 2024-12-08 19:58:00 2024-12-08 21:51:00 Emergency X ROBERTO RICHARDS DONNELL [facility] ERT [id number] [facility] 2024-12-02 13:30:00 2024-12-02 13:30:00 Outpatient RIDDHI MONTES [id number] [facility] 2024-12-02 09:30:00 2024-12-02 09:30:00 Outpatient CATHY STRICKLAND [id number] [facility] 2024-12-02 00:00:00 2024-12-02 00:00:00 Outpatient MD KELLEE CHOI [id number] [facility] 2024-12-02 00:00:00 2024-12-02 00:00:00 Outpatient RIDDHI MONTES [id number] [facility] 2024-12-01 00:00:00 2024-12-01 09:53:20 Transition of Care Piper Mercedes Antoinette [address] 1..840.114 350.1.13.10 4.2.7.2.686 [id number] [facility] 2024-11-26 17:54:00 2024-11-27 13:31:00 Hospital Encounter X ALEXX KWOK [facility] [id number] [facility] 2024-11-27 00:00:00 2024-11-27 00:00:00 Outpatient KELLEE DORMAN [id number] [facility] 2024-11-20 00:00:00 2024-11-20 00:00:00 Outpatient MARLINLee RIDDHI KELLEE DORMAN [id number] [facility] 2024-11-18 13:15:00 2024-11-18 13:15:00 Outpatient DONOVAN TATIANNA KELLEE DORMAN [id number] [facility] 2024-11-16 00:00:00 2024-11-16 00:00:00 Outpatient MARLINLee RIDDHI DORMAN [id number] [facility] 2024-11-15 11:45:00 2024-11-15 15:15:00 Emergency ER SHERIDAN MCMANUS [facility] [id number] [facility] 2024-11-15 11:45:00 2024-11-15 15:15:00 Departed Emergency Room [facility] [id number] 52 [facility] 2024-11-15 10:15:00 2024-11-15 10:15:00 Outpatient CARRINGTONSARAH KELLEE DORMAN [id number] [facility] 2024-11-14 20:45:00 2024-11-14 22:18:00 Emergency X BUSHRA RIOS SANDRA [facility] E[facility] [id number] [facility] 2024-11-14 20:45:00 2024-11-14 22:18:00 Emergency X BUSHRA RIOS SANDRA [facility] E[facility] [id number] [facility] 2024-11-14 00:00:00 2024-11-14 00:00:00 Outpatient JYOTI [facility]IDDHI DOR[facility] [id number] [facility] 2024-11-10 19:56:00 2024-11-11 01:04:00 Emergency X BOB GARCIA WAKILI [facility] [id number] [facility] 2024-11-10 19:56:00 2024-11-11 01:04:00 Emergency Bob Garcia [facility] 1.2.840.114 350.1.13.10 4.2.7.2.686 [id number] [facility] 2024-11-10 13:30:00 2024-11-10 13:30:00 Outpatient RIDDHI MONTES KELLEE KELLEE [id number] [facility] 2024-11-10 13:30:00 2024-11-10 13:30:00 Outpatient JYOTI RIDDHI KELLEE DORMAN [id number] [facility] 2024-11-05 00:00:00 2024-11-05 09:33:29 Transition of Care Piper Mercedes Antoinette [facility] [address] [address] 1.2840.114 350.1.13.10 4.2.7.2.686 [id number] [facility] 2024-10-31 21:29:00 2024-11-04 15:00:00 Inpatient X CRIS BLUNT, KAUR SANDRA, KAUR [facility] [id number] [facility] 2024-10-31 21:29:00 2024-11-04 15:00:00 Hospital Encounter Bob Garcia Zay Montero, Elliott Alvarado [facility] 1.2.840.114 350.1.13.10 4.2.7.2.686 [id number] [facility] 2024-11-03 18:20:00 2024-11-03 19:20:00 Surgery Dane Jurado [facility] 1.2.840.114 350.1.13.10 4.2.7.2.686 [id number] [facility] 2024-11-02 00:00:00 2024-11-02 00:00:00 Outpatient KELLEE DORMAN [id number] [facility] 2024-11-02 00:00:00 2024-11-02 00:00:00 Outpatient KELLEE DORMAN [id number] [facility] 2024-10-28 14:15:00 2024-10-28 14:15:00 Outpatient MAN TATIANNA KELLEE DORMAN [id number] [facility] 2024-10-26 11:30:00 2024-10-26 11:30:00 Outpatient FLORINDA REYES KELLEE DORMAN [id number] [facility] 2024-10-23 20:18:00 2024-10-23 23:54:00 Emergency X JUANJOSE BARKER, JUANJOSE [facility] E[facility] [id number] [facility] 2024-10-23 20:18:00 2024-10-23 23:54:00 Emergency Vasut, Juanjose J [facility] 1.2.840.114 350.1.13.10 4.2.7.2.686 [id number] [facility] 2024-10-23 10:30:00 2024-10-23 10:30:00 Outpatient RIDDHI MONTES [id number] [facility] 2024-10-19 00:00:00 2024-10-19 00:00:00 Outpatient RIDDHI MONTES [id number] [facility] 2024-10-13 23:15:00 2024-10-14 19:39:00 Inpatient ER SELENA DEL TORO [facility] [id number] [facility] 2024-10-13 23:15:00 2024-10-14 19:39:00 Discharged Inpatient (obs) [facility] [id number] [facility] 2024-10-14 00:00:00 2024-10-14 00:00:00 Outpatient KELLEE DORMAN [id number] Kellee beck 2024-10-12 22:30:00 2024-10-13 02:45:00 Emergency X BOB GARCIA WAKILI [facility] [id number] [facility] 2024-10-12 22:30:00 2024-10-13 02:45:00 Emergency Bob Garcia [facility] 1.2.840.114 350.1.13.10 4.2.7.2.686 [id number] [facility] 2024-09-23 13:30:00 2024-09-23 13:30:00 Outpatient GISELLE OSORIO [id number] [facility] 2024-09-23 00:00:00 2024-09-23 00:00:00 Outpatient KELLEE DORMAN [id number] [facility] 2024-09-17 00:00:00 2024-09-17 00:00:00 Outpatient MD KELLEE CHOI [id number] [facility] 2024-09-15 11:15:00 2024-09-15 11:15:00 Outpatient KELLEE DORMAN [id number] [facility] 2024-09-15 10:45:00 2024-09-15 10:45:00 Outpatient KELLEE DORMAN [id number] [facility] 2024-09-15 10:15:00 2024-09-15 10:15:00 Outpatient KELLEE DORMAN [id number] [facility] 2024-09-15 07:30:00 2024-09-15 07:30:00 Outpatient KELLEE DORMAN [id number] [facility] 2024-09-15 00:00:00 2024-09-15 00:00:00 Outpatient GISELLE OSORIO [id number] [facility] 2024-09-06 00:00:00 2024-09-06 00:00:00 Outpatient RIDDHI MONTES [id number] [facility] 2024-09-01 00:00:00 2024-09-01 00:00:00 Outpatient HUNDLRIDDHI KELLEE DORMAN [id number] [facility] 2024-08-27 00:00:00 2024-08-27 00:00:00 Outpatient SMITHCONRADO KELLEE DORMAN [id number] [facility] 2024-08-20 16:45:00 2024-08-20 16:45:00 Outpatient SHITTUJÚNIOR KELLEE DORMAN [id number] [facility] 2024-08-18 10:00:00 2024-08-18 10:00:00 Outpatient JYOTI RIDDHI KELLEE DORMAN [id number] [facility] 2024-08-05 15:30:00 2024-08-05 15:30:00 Outpatient SMITH, CONRADO KELLEE DORMAN [id number] [facility] 2024-08-03 00:00:00 2024-08-03 00:00:00 Outpatient JYOTI RIDDHI DORMAN [id number] [facility] 2024-07-18 22:48:00 2024-07-19 01:24:00 Emergency X Saleem EDWARD K [facility] [id number] [facility] 2024-07-18 22:48:00 2024-07-19 01:24:00 Emergency Saleem Edward [facility] 1.2.840.114 350.1.13.10 4.2.7.2.686 [id number] [facility] 2024-07-15 00:00:00 2024-07-15 00:00:00 Outpatient JYOTI RIDDHI DORMAN [id number] [facility] 2024-07-10 00:00:00 2024-07-10 00:00:00 Outpatient JYOTI RIDDHI DORMAN [id number] [facility] 2024-07-09 00:00:00 2024-07-09 00:00:00 Outpatient RADIOLOGY, DEPT KELLEE DORMAN [id number] [facility] 2024-07-09 00:00:00 2024-07-09 00:00:00 Outpatient RADIOLOGY, DEPT KELLEE DORMAN [id number] [facility] 2024-07-07 00:00:00 2024-07-07 00:00:00 Outpatient MD KELLEE CHOI [id number] [facility] 2024-07-06 07:00:00 2024-07-06 07:00:00 Outpatient KELLEE DORMAN [id number] [facility] 2024-07-06 00:00:00 2024-07-06 00:00:00 Outpatient GISELLE OSORIO [id number] [facility] 2024-07-03 19:56:00 2024-07-04 01:32:00 Emergency X SANDY GARCIA SHINTA [facility] ERT [id number] [facility] 2024-07-03 19:56:00 2024-07-04 01:32:00 Emergency Sandy Garcia AT [facility] 1.2.840.114 350.1.13.10 4.2.7.2.686 [id number] [facility] 2024-06-21 02:04:00 2024-06-21 02:59:00 Emergency X SANDY GARCIA SHINTA [facility] ERT [id number] [facility] 2024-06-21 02:04:00 2024-06-21 02:59:00 Emergency Sandy Garcia AT [facility] .2.840.114 350.1.13.10 4.2.7.2.686 [id number] [facility] 2024-06-20 00:00:00 2024-06-20 00:00:00 Outpatient RIDDHI MONTES [id number] [facility] 2024-06-18 00:00:00 2024-06-18 00:00:00 Outpatient [facility]ELLE [facility]ORIO [id number] [facility] 2024-06-17 15:30:00 2024-06-17 15:30:00 Outpatient KELLEE DORMAN [id number] [facility] 2024-06-14 21:28:00 2024-06-15 00:28:00 Emergency X SANDY GARCIA SHINTA [facility] [id number] [facility] 2024-06-14 21:28:00 2024-06-15 00:28:00 Emergency Sandy Garcia [facility] 1..840.114 350.1.13.10 4.2.7.2.686 [id number] [facility] 2024-06-06 21:56:00 2024-06-07 02:40:00 Emergency X BOB GARCIARATNAELLEN BOB [facility] [id number] [facility] 2024-06-06 21:56:00 2024-06-07 02:40:00 Emergency Bob Garcia Raad [facility] ..840.114 350.1.13.10 4.2.7.2.686 [id number] [facility] 2024-06-02 00:00:00 2024-06-02 00:00:00 Outpatient RIDDHI MONTES [id number] [facility] 2024-05-28 13:00:00 2024-05-28 13:00:00 Outpatient GISELLE OSORIO [id number] [facility] 2024-05-20 00:00:00 2024-05-20 00:00:00 Outpatient RIDDHI MONTES [id number] [facility] 2024-05-19 11:44:00 2024-05-19 13:35:00 Emergency Sveta WRIGHT RAFAL [facility] E[facility] [id number] [facility] 2024-05-19 11:44:00 2024-05-19 13:35:00 Emergency Rafal Wright [facility] ..840.114 350.1.13.10 4.2.7.2.686 [id number] [facility] 2024-05-18 11:15:00 2024-05-18 11:15:00 Outpatient LEYLA KELLEE DORMAN [id number] [facility] 2024-05-18 10:30:00 2024-05-18 10:30:00 Outpatient RIDDHI MONTES [id number] [facility] 2024-05-17 18:30:00 2024-05-17 22:19:00 Emergency Tammy Roy Radha [facility] 1.2.840.114 350.1.13.10 4.2.7.2.686 [id number] [facility] 2024-05-13 18:04:00 2024-05-13 20:42:00 Emergency ER ARELIS KERN [facility] [id number] [facility] 2024-05-12 00:00:00 2024-05-12 00:00:00 Outpatient RIDDHI MONTES [id number] [facility] 2024-05-07 18:47:00 2024-05-07 21:36:00 Emergency Wagner, Saleem Eleni [facility] 1.2.840.114 350.1.13.10 4.2.7.2.686 [id number] [facility] 2024-04-22 09:15:00 2024-04-22 09:15:00 Outpatient FARTUN GILLESPIE [id number] [facility] 2024-04-15 10:30:00 2024-04-15 10:30:00 Outpatient RIDDHI MONTES [id number] [facility] 2024-04-12 00:00:00 2024-04-12 00:00:00 Outpatient RIDDHI MONTES [id number] [facility] 2024-04-10 16:20:00 2024-04-10 18:53:00 Emergency ER TAVARES MG JR [facility] [id number] [facility] 2024-04-10 16:20:00 2024-04-10 18:53:00 Departed Emergency Room [facility] [id number] 85 [facility] 2024-04-08 17:37:00 2024-04-08 20:38:00 Emergency Jacque Rojo [facility] 1.2.840.114 350.1.13.10 4.2.7.2.686 [id number] [facility] 2024-04-08 00:00:00 2024-04-08 00:00:00 Outpatient RIDDHI MONTES [id number] [facility] 2024-03-12 00:00:00 2024-03-12 00:00:00 Outpatient RIDDHI MONTES [id number] [facility] 2024-03-06 11:00:00 2024-03-06 11:00:00 Outpatient RIDDHI MONTES [id number] [facility] 2024-02-06 11:00:00 2024-02-06 11:00:00 Outpatient GISELLE OSORIO [id number] [facility] 2024-02-06 10:40:00 2024-02-06 10:40:00 Outpatient KELLEE DORMAN [id number] [facility] 2024-02-06 00:00:00 2024-02-06 00:00:00 Outpatient RIDDHI MONTES [id number] [facility] 2024-02-05 00:00:00 2024-02-05 00:00:00 Outpatient RIDDHI MONTES [id number] [facility] 2024-01-14 09:30:00 2024-01-14 09:30:00 Outpatient RIDDHI MONTES [id number] [facility] 2024-01-09 00:00:00 2024-01-09 00:00:00 Outpatient HUNDL, RIDDHI KELLEE DORMAN [id number] [facility] 2024-01-06 00:00:00 2024-01-06 00:00:00 Outpatient HUNDL, RIDDHI KELLEE DORMAN [id number] [facility]24-01-03 00:00:00 2024-01-03 00:00:00 Outpatient HUNDL, RIDDHI KELLEE DORMAN [id number] [facility] 2024-01-02 14:00:00 2024-01-02 14:00:00 Outpatient HUNDL, RIDDHISharlene DORMAN [id number] [facility] 2023-12-13 09:30:00 2023-12-13 09:30:00 Outpatient HUNDL, RIDDHI DORMAN [id number] [facility] 2023-12-09 00:00:00 2023-12-09 00:00:00 Outpatient HUNDL, RIDDHISharlene DORMAN [id number] [facility] 2023-12-05 00:00:00 2023-12-05 00:00:00 Outpatient HUNDL, RIDDHI KELLEE DORMAN [id number] [facility] 2023-12-03 11:45:00 2023-12-03 11:45:00 Outpatient LAB90 KELLEE DORMAN [id number] [facility] 2023-12-03 11:00:00 2023-12-03 11:00:00 Outpatient HUNDL, RIDDHI [facility] [id number] [facility]23-[facility]-26 00:00:00 2023-11-26 00:00:00 Outpatient HUNDL, RIDDHI DORMAN [id number] [facility] 2023-10-31 00:00:00 2023-10-31 00:00:00 Outpatient GIEFRAIN DORMAN [id number] [facility] 2023-10-31 00:00:00 2023-10-31 00:00:00 Outpatient GIEFRAIN DORMAN [id number] [facility] 2023-10-29 14:15:00 2023-10-29 14:15:00 Outpatient LAB90 KELLEE DORMAN [id number] [facility]ellee [facility] 2023-10-29 13:30:00 2023-10-29 13:30:00 Outpatient RIDDHI MONTES [id number] [facility] 2023-10-10 21:31:00 2023-10-11 00:43:00 Emergency X BOB GARCIA [facility] E[facility] [id number] [facility] 2023-10-10 21:31:00 2023-10-11 00:43:00 Emergency Bob Garcia [facility] 1.2.840.114 350.1.13.10 4.2.7.2.686 [id number] [facility] 2023-08-31 18:02:00 2023-08-31 22:40:00 Emergency ER SHERIDAN MCMANUS [facility] [id number] [facility] 2023-08-31 18:02:00 2023-08-31 22:40:00 emergency [facility] [id number] 2023-07-01 19:50:00 2023-07-01 22:59:00 Emergency X ROBERTO RICHARDS [facility] ERT [id number] [facility] 2023-07-01 19:50:00 2023-07-01 22:59:00 Emergency Roberto Richards [facility] 1..840.114 350.1.13.10 4.2.7.2.686 [id number] [facility] 2023-06-04 23:37:00 2023-06-06 13:30:00 Inpatient ER JOSIEMONICA RITESHLULU [facility] [id number] [facility] 2023-06-04 23:37:00 2023-06-06 13:30:00 observatio n encounter [facility] [id number] 2023-05-11 01:16:00 2023-05-13 17:04:00 Inpatient ER RIDDHI MYLES [facility] [id number] [facility] 2023-05-11 01:16:00 2023-05-13 17:04:00 observatio ami self [facility] [id number] 24 2023-05-10 21:48:00 2023-05-10 21:48:00 Emergency ER AN IRIZARRY [facility] [id number] [facility] 2023-05-09 17:40:00 2023-05-09 20:30:00 Emergency X KLAUDIA NARVAEZ [facility] ERT [id number] [facility] 2023-05-09 17:40:00 2023-05-09 20:30:00 Emergency Klaudia Narvaez [facility] 1.2.840.114 350.1.13.10 4.2.7.2.686 [id number] [facility] 2023-05-05 21:31:00 2023-05-06 03:15:00 Emergency ER DEEPAGRACESHERIDAN RAMIREZ [facility] [id number] [facility] 2023-05-05 21:31:00 2023-05-06 03:15:00 emergency [facility] [id number] 2023-04-30 17:18:00 2023-04-30 21:20:00 Emergency KLAUDIA MATA [facility] ERT [id number] [facility] 2023-04-30 17:18:00 2023-04-30 21:20:00 Emergency Klaudia Narvaez [facility] 1.2.840.114 350.1.13.10 4.2.7.2.686 [id number] [facility] 2023-04-16 20:40:00 2023-04-16 23:10:00 Emergency X ROBERTO RICHARDS [facility] ERT [id number] [facility] 2023-04-16 20:40:00 2023-04-16 23:10:00 Emergency Roberto Richards [facility] 1.2.840.114 350.1.13.10 4.2.7.2.686 [id number] [id number] [facility] 2023-04-08 17:28:00 2023-04-08 21:20:00 Emergency X Saleem EDWARD [facility] ERT [id number] [facility] 2023-04-08 17:28:00 2023-04-08 21:20:00 Emergency Saleem Edward Eleni [facility] 1.2.840.114 350.1.13.10 4.2.7.2.686 [id number] [id number] [facility] 2023-03-09 20:23:00 2023-03-10 00:20:00 Emergency X ROBERTO RICHARDS [facility] ERT [id number] [facility] 2023-03-09 20:23:00 2023-03-10 00:20:00 Emergency Roberto Richards [facility] 1.2.840.114 350.1.13.10 4.2.7.2.686 [id number] [facility] 2023-03-01 19:35:00 2023-03-02 01:35:00 Emergency X BOB GARCIA [facility] ERT [id number] [facility] 2023-03-01 19:35:00 2023-03-02 01:35:00 Emergency Bob Garcia [facility] 1.2.840.114 350.1.13.10 4.2.7.2.686 [id number] [facility] 2023-02-17 22:58:00 2023-02-18 02:22:00 Emergency X APPLE PADGETT [facility] ERT [id number] [facility] 2023-02-17 22:58:00 2023-02-18 02:22:00 Emergency Apple Padgett S [facility] 1.2840.114 350.1.13.10 4.2.7.2.686 [id number] [facility] 2023-02-15 13:46:00 2023-02-17 16:14:00 Outpatient X ZAY MONTERO [facility] ALTHEA [id number] [facility] 2023-02-15 13:46:00 2023-02-17 16:14:00 Emergency Leeanne Wise Jelani [facility] 1.2.840.114 350.1.13.10 4.2.7.2.686 [id number] [facility] 2022-01-09 16:47:00 2022-01-09 20:28:00 Emergency X MELIDA LONGORIA [facility] ERT [id number] [facility] 2022-01-09 16:47:00 2022-01-09 20:28:00 Emergency Melida Longoria [facility] 1.2.840.114 350.1.13.10 4.2.7.2.686 [id number] [id number] [facility] 2021-12-13 22:16:00 2021-12-14 02:28:00 Emergency X WIL MCQUEEN [facility] ERT [id number] [facility] 2021-12-13 22:16:00 2021-12-14 02:28:00 Emergency Wil Mcqueen [facility] 1.2.840.114 350.1.13.10 4.2.7.2.686 [id number] [facility] 2021-11-11 19:50:00 2021-11-11 23:17:00 Emergency X APPLE WANG [facility] ERT [id number] [facility] 2021-11-11 19:50:00 2021-11-11 23:17:00 Emergency Apple Wang [facility] 1.2.840.114 350.1.13.10 4.2.7.2.686 [id number] [id number] [facility] 2021-11-11 00:00:00 2021-11-11 00:00:00 Orders Only Doctor Unassigned, Bal[place] [facility] 1.2.840.114 350.1.13.10 4.2.7.2.686 [id number] [facility] 2021-09-11 19:42:00 2021-09-11 23:02:00 Emergency X [facility] [id number] [facility] 2021-09-11 19:42:00 2021-09-11 23:02:00 Emergency Apple Wang [facility] 1.2.840.114 350.1.13.10 4.2.7.2.686 [id number] [id number] [facility] 2021-08-14 23:38:00 2021-08-15 02:29:00 Emergency X BOB GARCIA [facility] ERT [id number] [facility] 2021-08-14 23:38:00 2021-08-15 02:29:00 Emergency Bob Garcia Raad [facility] 1.2.840.114 350.1.13.10 4.2.7.2.686 [id number] [facility] 2021-05-27 23:23:00 2021-05-28 04:23:00 Emergency X CEM CHOI [facility] ERT [id number] [facility] 2021-05-27 23:23:00 2021-05-28 04:23:00 Emergency Cem Choi [facility] 1.2.840.114 350.1.13.10 4.2.7.2.686 [id number] [id number] [facility] 2021-04-10 00:00:00 2021-04-10 00:00:00 Transition of Care Shelley Rosas 1.2.840.114 350.1.13.10 4.2.7.2.686 [id number] [facility] 2021-04-07 16:30:00 2021-04-08 17:45:00 Hospital Encounter Roberto Richards Jelani [facility] 1.2.840.114 350.1.13.10 4.2.7.2.686 [id number] [id number] [facility] 2021-04-07 16:18:00 2021-04-07 16:18:00 Emergency X [facility] E[facility] [id number] [facility] 2021-01-12 03:01:00 2021-01-12 04:56:00 Emergency Klaudia Narvaez [facility] 1.2.840.114 350.1.13.10 4.2.7.2.686 [id number] [id number] [facility] 2021-01-12 03:01:00 2021-01-12 03:01:00 Emergency X KLAUDIA [facility] ERT [id number] [facility] 2020-12-10 17:12:00 2020-12-10 21:14:00 Emergency Bal Hassan [facility] 1.2.840.114 350.1.13.10 4.2.7.2.686 [id number] [id number] [facility] 2020-12-10 17:12:00 2020-12-10 17:12:00 Emergency X BAL HASSAN [facility] ERT [id number] [facility] 2020-12-04 14:50:00 2020-12-04 17:08:00 Emergency Tremaine Becerra [facility] 1.2.840.114 350.1.13.10 4.2.7.2.686 [id number] [id number] [facility] 2020-12-04 14:50:00 2020-12-04 17:08:00 Emergency X TREMAINE BECERRA [facility] ERT [id number] [facility] 2020-11-03 20:44:00 2020-11-03 23:34:00 Emergency DreLeeanne almonte [facility] 1.2840.114 350.1.13.10 4.2.7.2.686 [id number] [id number] [facility] 2020-11-03 20:44:00 2020-11-03 23:34:00 Emergency X LEEANNE WISE [facility] ERT [id number] [facility] 2020-09-19 12:32:00 2020-09-19 14:15:00 Emergency ER MARIS WILRaad [facility] [id number] [facility] 2020-09-17 09:53:00 2020-09-17 11:55:00 Emergency DreLeeanne almonte [facility] 1.2.840.114 350.1.13.10 4.2.7.2.686 [id number] 084 [id number] 2020-09-17 09:53:00 2020-09-17 11:55:00 Emergency DreLeeanne almonte [facility] 1.2.840.114 350.1.13.10 4.2.7.2.686 [id number] [id number] [facility] 2020-09-17 09:53:00 2020-09-17 11:55:00 Emergency X LEEANNE WISE [facility] ERT [id number] [facility] 2020-09-07 00:37:00 2020-09-07 01:41:00 Emergency Saleem Edward [facility] 1.2.840.114 350.1.13.10 4.2.7.2.686 [id number] [id number] [facility] 2020-09-07 00:37:00 2020-09-07 01:41:00 Emergency X Saleem EDWARD [facility] ERT [id number] [facility] 2020-09-07 00:37:00 2020-09-07 01:41:00 Emergency Saleem Edward [facility] 1.2.840.114 350.1.13.10 4.2.7.2.686 [id number] [id number] 2020-09-07 00:00:00 2020-09-07 00:00:00 Orders Only Doctor Unassigned, [place] [facility] 1.2.840.114 350.1.13.10 4.2.7.2.686 [id number] [facility] 2020-09-07 00:00:00 2020-09-07 00:00:00 Orders Only Doctor Unassigned, Bal[place] [facility] 1.2.840.114 350.1.13.10 4.2.7.2.686 [id number] 2020-08-28 01:59:00 2020-08-28 04:40:00 Emergency Bob Garcia [facility] 1.2.840.114 350.1.13.10 4.2.7.2.686 [id number] [id number] [facility] 2020-08-28 01:59:00 2020-08-28 04:40:00 Emergency Yarima, [place] [facility] 1.2.840.114 350.1.13.10 4.2.7.2.686 [id number] [id number] 2020-08-28 01:59:00 2020-08-28 01:59:00 Emergency BOB WAYNE [facility] ERT [id number] [facility] 2020-08-14 11:48:00 2020-08-14 13:42:00 Emergency Best Taylor [facility] 1.2.840.114 350.1.13.10 4.2.7.2.686 [id number] [id number] [facility] 2020-08-14 11:48:00 2020-08-14 13:42:00 Emergency Best Taylor [facility] 1.2.840.114 350.1.13.10 4.2.7.2.686 [id number] [id number] 2020-08-14 11:33:00 2020-08-14 11:33:00 Emergency X BEST TAYLOR [facility] ERT [id number] [facility] 2020-08-10 18:35:00 2020-08-11 00:05:00 Emergency Best Taylor [place] [facility] 1.2.840.114 350.1.13.10 4.2.7.2.686 [id number] [id number] [facility] 2020-08-10 18:35:00 2020-08-11 00:05:00 Emergency X BOB GARCIA [facility] ERT [id number] [facility] 2020-08-10 18:35:00 2020-08-11 00:05:00 Emergency Best Taylor [place] [facility] 1.2.840.114 350.1.13.10 4.2.7.2.686 [id number] [id number] 2020-08-07 07:19:00 2020-08-07 09:02:00 [facility] 1.2.840.114 350.1.13.10 4.2.7.2.686 [id number] [id number] [facility] 2020-08-07 07:19:00 2020-08-07 09:02:00 Emergency Roberto Richards [facility] 1.2.840.114 350.1.13.10 4.2.7.2.686 [id number] [id number] 2020-08-07 07:12:00 2020-08-07 07:12:00 Emergency X [facility] [id number] [facility] 2020-08-07 00:00:00 2020-08-07 00:00:00 Orders Only Doctor Unassigned, [place] [facility] 1.2.840.114 350.1.13.10 4.2.7.2.686 [id number] [facility] 2020-08-07 00:00:00 2020-08-07 00:00:00 Orders Only Doctor Unassigned, [place] [facility] 1.2.840.114 350.1.13.10 4.2.7.2.686 [id number] 2020-07-01 00:00:00 2020-07-01 00:00:00 Letter (Out) Sallie, [facility] 1.2.840.114 350.1.13.10 4.2.7.2.686 [id number] [id number] [facility] 2020-07-01 00:00:00 2020-07-01 00:00:00 Letter (Out) Sallie, [facility] 1.2.840.114 350.1.13.10 4.2.7.2.686 [id number] [id number] 2020-06-30 17:46:00 2020-06-30 21:06:00 Emergency Abdias Robertson [facility] 1.2.840.114 350.1.13.10 4.2.7.2.686 [id number] [id number] [facility] 2020-06-30 17:46:00 2020-06-30 21:06:00 Emergency X ABDIAS ROBERTSON [facility] ERT [id number] [facility] 2020-06-30 17:46:00 2020-06-30 21:06:00 Emergency Abdias Robertson [facility] 1.2.840.114 350.1.13.10 4.2.7.2.686 [id number] 084 [id number] 2020-06-28 16:00:00 2020-06-28 18:08:00 Emergency Singer Klaudia [facility] 1.2.840.114 350.1.13.10 4.2.7.2.686 [id number] [id number] [facility] 2020-06-28 16:00:00 2020-06-28 18:08:00 Emergency Klaudia Narvaez [facility] 1.2.840.114 350.1.13.10 4.2.7.2.686 [id number] [id number] 2020-06-28 16:00:00 2020-06-28 16:00:00 Emergency KLAUDIA MATA [facility] ERT [id number] [facility] 2020-06-14 00:00:00 2020-06-14 00:00:00 Telephone [facility] 1.2.840.114 350.1.13.10 4.2.7.2.686 [id number] [facility] 2020-06-14 00:00:00 2020-06-14 00:00:00 Telephone [facility] 1.2.840.114 350.1.13.10 4.2.7.2.686 [id number] 019 [id number] 2020-06-12 17:40:00 2020-06-12 22:05:00 Emergency Leeanne Wise [facility] 1.2.840.114 350.1.13.10 4.2.7.2.686 [id number] 084 [id number] [facility] 2020-06-12 17:40:00 2020-06-12 22:05:00 Emergency Leeanne Wise [facility] 1.2.840.114 350.1.13.10 4.2.7.2.686 [id number] [id number] 2020-06-12 17:28:00 2020-06-12 17:28:00 Emergency X [facility] [id number] [facility] 2020-05-16 17:10:00 2020-05-16 19:01:00 Emergency Bushra Rios [facility] 1.2.840.114 350.1.13.10 4.2.7.2.686 [id number] [id number] [facility] 2020-05-16 17:10:00 2020-05-16 19:01:00 Emergency Bushra Rios [facility] 1.2.840.114 350.1.13.10 4.2.7.2.686 [id number] 084 [id number] 2020-05-16 17:10:00 2020-05-16 17:10:00 Emergency X BUSHRA RIOS [facility] ERT [id number] [facility] 2020-05-14 23:18:00 2020-05-15 02:54:00 Emergency Roberto Richards [facility] 1.2.840.114 350.1.13.10 4.2.7.2.686 [id number] [id number] [facility] 2020-05-14 23:18:00 2020-05-15 02:54:00 Emergency Roberto Richards [facility] 1.2.840.114 350.1.13.10 4.2.7.2.686 [id number] [id number] 2020-05-14 23:14:00 2020-05-14 23:14:00 Emergency X ROBERTO RICHARDS [facility] [id number] [facility] 2009-07-18 05:35:00 2009-07-18 09:19:00 Emergency ER SINCERE FRANK [facility] [id number] [facility] 2008-10-08 09:55:00 2008-10-08 14:19:00 Emergency ER GUMARO ALVAREZ [facility] [id number] [facility] 2008-03-26 15:21:00 2008-03-26 18:08:00 Emergency ER SARAH WILKINS [facility] [id number] [facility] 2005-05-25 06:35:00 2005-05-25 06:35:00 Outpatient LISA LUNA [facility] [id number] [facility] 2005-05-16 21:57:00 2005-05-16 23:40:00 Emergency ER WJ SOLORZANO [facility] [id number] [facility] 2005-04-24 18:49:00 2005-04-24 22:40:00 Emergency ER WJ SOLORZANO [facility] [id number] [facility] 2004-12-27 20:30:00 2004-12-28 01:40:00 Emergency ER KRYSTLEDORA SANIA [facility] [id number] [facility] 2003-12-07 22:40:00 2003-12-08 02:48:00 Emergency ER GINA MARTIN [facility] [id number] [facility] 2003-12-06 13:57:00 2003-12-06 18:30:00 Emergency ER YIN RIOS [facility] [id number] [facility] 2003-08-31 19:43:00 2003-08-31 22:55:00 Emergency ER GUMARO ALVAREZ [facility] [id number] [facility] 2003-08-22 19:26:00 2003-08-22 22:10:00 Emergency ER ALBERTO CASTLE [facility] [id number] [facility] 2002-01-30 22:41:00 2002-01-31 01:29:00 Emergency ER ANTHONY SCHNEIDER [facility] [id number] [facility] 2001-10-28 09:15:00 2001-10-28 11:25:00 Emergency ER DARCIE MCKEON [facility] [id number] [facility] 2001-04-15 19:14:00 2001-04-15 23:10:00 Emergency ER ARLETTE ROBERT [facility] [id number] [facility] 2000-12-25 21:52:00 2000-12-26 00:15:00 Emergency ER GISELA RIOS [facility] [id number] [facility] 2000-12-23 18:51:00 2000-12-23 22:00:00 Emergency ER HUGO COFFMAN [facility] [id number] [facility] 1999-10-26 21:11:00 1999-10-27 00:20:00 Emergency ER JEANINE JW [facility] [id number] [facility] Results Test Description Test Time Test Comments Results Result Co mments Source [facility] GynKS-[id number] 20:14:00* Test Item Value Reference Range Interpretation Comme nts ZX-Usn-D-Type Natriuretic Pe ptide (test code = 137399701) 26.0 [facility] CtrBilirubin [id number] 20:08:00* Test Item Value Reference Range Interpretation Comme nts Total Bilirubin (test code = TXT9840) 0.1 [facility] CtrAlbumin-globulin ratio pcu4459-54-67 20:08:00* Test Item Value Reference Range Interpretation Comme nts Blood Urea Nitrogen (test co de = 970099158) 3 Albumin/Globulin Ratio (test code = LOG9178) 1.0 [facility] CtrEstimated glomerular filtration rate (GFR) [id number] 20:08:00* Test Item Value Reference Range Interpretation Comme nts Glomerular Filtration Rate C alc (test code = 108242375) > 60.00 [facility] CtrBUN/creatinine pamcf8029-74-44 20:08:00* Test Item Value Reference Range Interpretation Comme nts BUN/Creatinine Ratio (test c ode = 82401628) 5.0 [facility] [id number] 20:08:00* Test Item Value Reference Range Interpretation Comme nts Carbon Dioxide Level (test c ode = 07117675) 21 [facility] CtrAnion gap uwgbuvfzspzvf1331-32-09 20:08:00* Test Item Value Reference Range Interpretation Comme nts Anion Gap (test code = 27169982) 10.2 [facility] CtrCalcium [id number] 20:08:00* Test Item Value Reference Range Interpretation Comme nts Calcium Level (test code = 37958187) 9.1 [facility] BedXbrnamhws2463-92-33 20:08:00* Test Item Value Reference Range Interpretation Comme nts Magnesium Level (test code = 40407769) 1.8 [facility] CtrAlbumin ser/tani0678-76-07 20:08:00* Test Item Value Reference Range Interpretation Comme nts Albumin (test code = 297558414) 3.4 [facility] CtrGlobulin mzs1081-79-00 20:08:00* Test Item Value Reference Range Interpretation Comme nts Globulin (test code = 542593786) 3.3 [facility] CtrAST (SGOT) ser/jgbn6891-07-19 20:08:00* Test Item Value Reference Range Interpretation Comme nts Aspartate Amino Transf (AST/ SGOT) (test code = 13237900) 18 [facility] CtrALT (SGPT)2025-04-02 20:08:00* Test Item Value Reference Range Interpretation Comme nts Alanine Aminotransferase (AL T/SGPT) (test code = 24883045) 16 [facility] CdmBjjqwf4804-77-38 20:08:00* Test Item Value Reference Range Interpretation Comme nts Lipase (test code = 954889573) 18 [facility] CtrAlkaline phosphatase fhxwb2463-95-31 20:08:00* Test Item Value Reference Range Interpretation Comme nts Total Alkaline Phosphatase ( test code = 93193426) 92 [facility] CtrTroponin I measurement by high sensitivity method 2025-04-02 20:08:00* Test Item Value Reference Range Interpretation Comme nts Troponin I High Sensitivity (test code = 373047562) 3.6 [facility] CtrSerum beta human chorionic gonadotropic (BhCG) aytcrtmqn4540-74-74 19:56:00* Test Item Value Reference Range Interpretation Comme nts Serum Test, Qualit ative (test code = 2110-5) NEGATIVE [facility] CtrAmphetamine ur zmbhcq1981-93-69 19:51:00* Test Item Value Reference Range Interpretation Comme nts Urine Amphetamines Screen (t est code = 91479-4) NEGATIVE [facility] VliVscatodtw2817-18-88 19:51:00* Test Item Value Reference Range Interpretation Comme nts Methadone Level (test code = MOU3360) NEGATIVE [facility] CtrBenzodiazepines screen wt1956-01-03 19:51:00* Test Item Value Reference Range Interpretation Comme nts Urine Benzodiazepines Screen (test code = 838051329) POSITIVE [facility] CtrCannabinoids (0-rgwelnj-QJN) vschzzuowtk7179-64-80 19:51:00* Test Item Value Reference Range Interpretation Comme nts Urine Cannabinoids (test cod e = 814471378) NEGATIVE [facility] CtrCocaine metabolite cicenx5969-01-31 19:51:00* Test Item Value Reference Range Interpretation Comme nts Urine Cocaine Metabolite (te st code = 592157848) NEGATIVE [facility] CtrOpiates dwirc4312-54-87 19:51:00* Test Item Value Reference Range Interpretation Comme nts Urine Opiates Screen (test c ode = 767551484) NEGATIVE [facility] CtrUrine hydrocodone measurement (mass/volume) 2025-04-02 19:51:00* Test Item Value Reference Range Interpretation Comme nts Hydrocodone Level (test code = 3681-4) NEGATIVE [facility] CtrUrine fentanyl measurement (mass/volume)2025-04-02 19:51:00* Test Item Value Reference Range Interpretation Comme nts Urine Fentanyl Screen (test code = 3637-6) NEGATIVE [facility] CtrPhencyclidine (PCP) gi3929-98-26 19:51:00* Test Item Value Reference Range Interpretation Comme nts Urine Phencyclidine (PCP) Le edilson (test code = 761012958) NEGATIVE [facility] CtrPropoxyphene [Mass/volume] in Alrgb4784-04-18 19:51:00* Test Item Value Reference Range Interpretation Comme nts Propoxyphene Level (test cod e = 3545-1) NEGATIVE [facility] CtroxyCODONE [Mass/volume] in Ntutm9689-77-52 19:51:00* Test Item Value Reference Range Interpretation Comme nts Oxycodone Level (test code = 81294-9) NEGATIVE [facility] CtrRBC count ur jrsd2015-93-41 19:41:00* Test Item Value Reference Range Interpretation Comme nts Urine RBC (test code = 798-9) 0-2 [facility] CtrUrine examination for white blood cells (WBC) 2025-04-02 19:41:00* Test Item Value Reference Range Interpretation Comme nts Urine WBC (test code = 846544093) 0-2 [facility] CtrAutomated epithelial cells count in urine sediment (number/area)2025-04-02 19:41:00* Test Item Value Reference Range Interpretation Comme nts Urine Epithelial Cells (test code = 94995-4) 11-20 [facility] CtrBacteria detection in urine sediment by light voflvzdvxv7205-59-05 19:41:00* Test Item Value Reference Range Interpretation Comme nts Urine Bacteria (test code = 46921-7) Few [facility] CtrUrine casts detection by automated method 2025-04-02 19:41:00* Test Item Value Reference Range Interpretation Comme nts Urine Casts (test code = 63740-5) 0-2 [facility] CtrColor of Urine by Fkyk8051-70-99 19:36:00* Test Item Value Reference Range Interpretation Comme nts Urine Color (test code = 13519-1) Yellow [facility] CtrAppearance of Idlfc3095-98-34 19:36:00* Test Item Value Reference Range Interpretation Comme nts Urine Appearance (test code = 5767-9) Clear [facility] CtrUrine glucose weubcnhij5384-96-49 19:36:00* Test Item Value Reference Range Interpretation Comme [facility] Urine Glucose (UA) (test cod e = 2349-9) Negative [facility] CtrBilirubin ls9783-89-02 19:36:00* Test Item Value Reference Range Interpretation Comme [facility] Urine Bilirubin (test code = 662350262) Negative [facility] CtrKetones ky6929-14-79 19:36:00* Test Item Value Reference Range Interpretation Comme [facility] Urine Ketones (test code = 35373201) Negative [facility] CtrSpecific gravity of Urine by Automated test strip 2025-04-02 19:36:00* Test Item Value Reference Range Interpretation Comme nts Urine Specific Archie (test code = 47395-8) 1.007 [facility] Center[facility] blood alualelpu2978-71-37 19:36:00* Test Item Value Reference Range Interpretation Comme [facility] Urine Blood (test code = 583344-8) Negative [facility] CtrpH jn4788-60-95 19:36:00* Test Item Value Reference Range Interpretation Comme [facility] Urine pH (test code = 2756-5) 5.500 [facility] CtrProtein cb1838-92-11 19:36:00* Test Item Value Reference Range Interpretation Comme [facility] Urine Protein (test code = 94262938) Negative [facility] CtrUrobilinogen, urine, tv2167-66-54 19:36:00* Test Item Value Reference Range Interpretation Comme [facility] Urine Urobilinogen (test cod e = 754464369) 0.2 [facility] CenterU[facility] nitrate peokftbkk4624-61-24 19:36:00* Test Item Value Reference Range Interpretation Comme nts Urine Nitrate (test code = 85675-8) Negative [facility] CtrUrine leukocyte esterase cyezsdfbn6502-13-24 19:36:00* Test Item Value Reference Range Interpretation Comme nts Urine Leukocyte Esterase (te st code = 438461-0) Negative [facility] CtrAbsolute eosinophil qucbd8784-16-37 19:34:00* Test Item Value Reference Range Interpretation Comme nts Eosinophils # (Auto) (test c ode = UAN5014) 0.22 [facility] CtrRBC miofx1860-12-75 19:34:00* Test Item Value Reference Range Interpretation Comme [facility] Red Blood Count (test code = 62800379) 4.66 [facility] DyxFdjriczjge1615-60-50 19:34:00* Test Item Value Reference Range Interpretation Comme [facility] Hematocrit (test code = 35774260) 35.7 [facility] CtrMCV (mean corpuscular volume) determination 2025-04-02 19:34:00* Test Item Value Reference Range Interpretation Comme [facility] Mean Corpuscular Volume (shailesh t code = 14659-8) 76.6 [facility] CtrMean corpuscular hemoglobin (MCH) determination 2025-04-02 19:34:00* Test Item Value Reference Range Interpretation Comme [facility] Mean Corpuscular Hemoglobin (test code = 41398666) 24.0 [facility] CenterMean corpuscular hemoglobin concentration (MCHC) pjwtlafnycvsq0347-54-69 19:34:00* Test Item Value Reference Range Interpretation Comme [facility] Mean Corpuscular Hemoglobin Concent (test code = 20906436) 31.4 [facility] CtrRBC distribution width coefficient of variation 2025-04-02 19:34:00* Test Item Value Reference Range Interpretation Comme [facility] Red Cell Distribution Width (test code = 77055246) 19.3 [facility] CtrPlatelet ybfvu3176-31-11 19:34:00* Test Item Value Reference Range Interpretation Comme [facility] Platelet Count (test code = 95079129) 323 [facility] CtrMean platelet yfvqcx8519-91-06 19:34:00* Test Item Value Reference Range Interpretation Comme nts Mean Platelet Volume (test c ode = 17947218) 9.0 [facility] CtrNeutrophils seg % cgf3020-80-63 19:34:00* Test Item Value Reference Range Interpretation Comme nts Neutrophils (%) (Auto) (test code = 49022-3) 61.7 [facility] CtrAbsolute immature granulocyte qovwr0472-41-61 19:34:00* Test Item Value Reference Range Interpretation Comme nts Absolute Immature Granulocyt e (auto (test code = 89304-5) 0.07 [facility] CtrBasophil % xidxol8501-51-83 19:34:00* Test Item Value Reference Range Interpretation Comme nts Basophils (%) (Auto) (test c ode = 72419-2) 0.4 [facility] CtrBlood band neutrophils count (number/volume) 2025-04-02 19:34:00* Test Item Value Reference Range Interpretation Comme nts Neutrophils # (Auto) (test c ode = 13088-5) 5.89 [facility] CtrAbsolute lymphocyte xtytf9954-96-09 19:34:00* Test Item Value Reference Range Interpretation Comme nts Lymphocytes # (Auto) (test c ode = 44091-6) 2.73 [facility] CtrAbsolute basophil ianwe1812-79-83 19:34:00* Test Item Value Reference Range Interpretation Comme nts Basophils # (Auto) (test cod e = 43367111) 0.04 [facility] CtrAbsolute NRBC ptjzo3528-49-80 19:34:00* Test Item Value Reference Range Interpretation Comme nts Nucleated Red Blood Cells # (test code = 605592418) 0 [facility] CtrCbc with Gxtu4757-89-19 22:54:23* Test Item Value Reference Range Interpretation Comme nts WBC (test code = 6690-2) 9.21 4.30-11.10 RBC (test code = 789-8) 4.91 3.93-5.25 HGB (test code = 718-7) 12.1 g/dL 11.6-15.0 HCT (test code = 4544-3) 37.4 % 35.7-45.2 MCV (test code = 787-2) 76.2 fL 80.6-95.5 L MCH (test code = 785-6) 24.6 pg 25.9-32.8 L MCHC (test code = 786-4) 32.4 g/dL 31.6-35.1 RDW-SD (test code = 16108-6) 52.4 fL 39.0-49.9 H RDW-CV (test code = 788-0) 19.1 % 12.0-15.5 H PLT (test code = 777-3) 417 166-358 H MPV (test code = 62266-6) 9 fL 9.5-12.9 L NRBC/100 WBC (test code = 1311472681) 0 0.0-10.0 NRBC x10^3 (test code = 3271311201) See_Comment [Automated messa ge] The system which generated this result transmitted reference range: 10*3/?L. The reference range was not used to interpret this result as normal/abnormal. GRAN MAT (NEUT) % (test code = 770-8) 69 % IMM GRAN % (test code = 7297274685) 0.3 % LYMPH % (test code = 736-9) 23.1 % MONO % (test code = 5905-5) 6.1 % EOS % (test code = 713-8) 1 % BASO % (test code = 706-2) 0.5 % GRAN MAT x10^3(ANC) (test code = 5444489243) 6.35 10*3/uL 1.88-7.09 IMM GRAN x10^3 (test code = 3919564135) 0.03 10*3/uL 0.00-0.06 LYMPH x10^3 (test code = 731-0) 2.13 10*3/uL 1.32-3.29 MONO x10^3 (test code = 742-7) 0.56 10*3/uL 0.33-0.92 EOS x10^3 (test code = 711-2) 0.09 10*3/uL 0.03-0.39 BASO x10^3 (test code = 704-7) 0.05 10*3/uL 0.01-0.07 Lab Interpretation (test code = 86612-3) [facility] hh7197-45-88 22:56:57Indication: chest pain ? RL: [id number] ORDERING PHYSICIAN: ?AMNA ?ANU EVANS Comparison: Chest radiograph 11/26/2024 TECHNIQUE: Single view of the chest. FINDINGS: The lungs are clear. Cardiomediastinal silhouette is withinnormal limits. ?No pneumothorax. The bony structures are intact.[facility] Troponin Q9750-96-90 22:20:15* Test Item Value Reference Range Interpretation Comme nts TROPONIN I (test code = 5245916712) 0.005 ng/mL <=0.034 DARWIN (test code = [...] of biotin. Lab Interpretation (test code = 09632-8) [facility] METABOLIC PANEL (98933)2025-03-07 21:00:18* Test Item Value Reference Range Interpretation Comme nts NA (test code = 7280182711) 138 mmol/L 135-145 K (test code = 1356060502) 3.4 mmol/L 3.5-5.0 L CL (test code = 0308318348) 107 mmol/L 98-108 CO2 TOTAL (test code = 0923717080) 24 mmol/L 23-31 AGAP (test code = 5364857922) 7 2-16 BUN (test code = 9727497843) 7-23 L GLUCOSE (test code = 4270594969) 86 mg/dL 70-110 CREATININE (test code = 2160-0) 0.5 mg/dL 0.50-1.04 TOTAL BILI (test code = 4800694417) 0.2 mg/dL 0.1-1.1 CALCIUM (test code = 3227850276) 8.8 mg/dL 8.6-10.6 T PROTEIN (test code = 1997360226) 6.1 g/dL 6.3-8.2 L ALBUMIN (test code = 7308527034) 3.4 g/dL 3.5-5.0 L ALK PHOS (test code = 1692926493) 71 U/L 34-122 ALTv (test code = 1742-6) 16 U/L 5-35 AST(SGOT) (test code = 5631469937) 17 U/L 13-40 eGFR (test code = 84912-8) 117.3 mL/min/1.73m2 CKD-EPI eGFR (2020). Assuming creatinine has been stable day-to-day for at least three months, the eGFR indicates Category G1 (>= 90 mL/min/1.73 m2) Lab Interpretation (test code = 75421-3) [facility] Y5859-59-98 20:30:28* Test Item Value Reference Range Interpretation Comme nts TROPONIN I (test code = 9450348220) 0.003 ng/mL <=0.034 DARWIN (test code = [...] of biotin. Lab Interpretation (test code = 49746-2) Normal [facility]-TERMINAL JDK-REJ5261-75-31 20:25:47* Test Item Value Reference Range Interpretation Comme nts NT-proBNP (test code = 43577-7) 155 pg/mL <=125 DARWIN (test code = DARWIN) Result Indeterminate-Consid er causes of NT-proBNP elevation other than Heart failure such as acute coronary syndrome, pulmonary embolism, pulmonary hypertension, sepsis, stroke, and renal dysfunction. Lab Interpretation (test code = 01971-8) [facility]normal [facility]field[facility]IPASE2025-08-31 20:17:29* Test Item Value Reference Range Interpretation Comme nts LIPASE (test code = 7276283248) 52 U/L 0-220 Lab Interpretation (test cod e = 60140-2) Normal [facility] WITH LSTU9501-74-93 20:03:29* Test Item Value Reference Range Interpretation [...] g/dL 31.6-35.1 L RDW-SD (test code = 32231-0) 52 fL 39.0-49.9 H RDW-CV (test code = 788-0) 18.6 % 12.0-15.5 H PLT (test code = 777-3) 318 166-358 MPV (test code = 17879-6) 8.9 fL 9.5-12.9 L NRBC/100 WBC (test code = 0362105733) 0 0.0-10.0 NRBC x10^3 (test code = 5033278250) See_Comment [Automated Companion Caninea ge] The system which generated this result transmitted reference range: 10*3/?L. The reference range was not used to interpret this result as normal/abnormal. GRAN MAT (NEUT) % (test code = 770-8) 60.9 % IMM GRAN % (test code = 1804832859) 0.5 % LYMPH % (test code = 736-9) 28.7 % MONO % (test code = 5905-5) 6.9 % EOS % (test code = 713-8) 2.5 % BASO % (test code = 706-2) 0.5 % GRAN MAT x10^3(ANC) (test code = 1066879530) 4.96 10*3/uL 1.88-7.09 IMM GRAN x10^3 (test code = 5724009260) 0.04 10*3/uL 0.00-0.06 LYMPH x10^3 (test code = 731-0) 2.34 10*3/uL 1.32-3.29 MONO x10^3 (test code = 742-7) 0.56 10*3/uL 0.33-0.92 EOS x10^3 (test code = 711-2) 0.2 10*3/uL 0.03-0.39 BASO x10^3 (test code = 704-7) 0.04 10*3/uL 0.01-0.07 Lab Interpretation (test code = 28864-0) Abnormal [facility] or plasma cardiac troponin I panel by high sensitivity mohvjk2567-48-80 21:21:00* Test Item Value Reference Range Interpretation Comme nts Troponin T High Sensitivity (test code = 72722-7) < 6.0 [facility] CtrSerum or plasma cardiac troponin I panel by high sensitivity guoygv1639-66-64 21:21:00* Test Item Value Reference Range Interpretation Comme nts Troponin T High Sensitivity (test code = 03995-0) < 6.0 [facility] CtrAmphetamine ur najoip7485-57-35 19:39:00* Test Item Value Reference Range Interpretation Comme nts Urine Amphetamines Screen (t est code = 83324-4) NEGATIVE [facility] GazBxtwsnewv2846-75-14 19:39:00* Test Item Value Reference Range Interpretation Comme nts Methadone Level (test code = GMD0625) NEGATIVE [facility] CtrBenzodiazepines screen gm9834-60-43 19:39:00* Test Item Value Reference Range Interpretation Comme nts Urine Benzodiazepines Screen (test code = 880517230) POSITIVE [facility] CtrCannabinoids (9-cugwtnl-CSP) itrisqyhdcj8230-37-40 19:39:00* Test Item Value Reference Range Interpretation Comme nts Urine Cannabinoids (test cod e = 384723898) NEGATIVE [facility] CtrCocaine metabolite jcrnkf3739-01-75 19:39:00* Test Item Value Reference Range Interpretation Comme nts Urine Cocaine Metabolite (te st code = 900842847) NEGATIVE [facility] CtrOpiates aizux2900-70-85 19:39:00* Test Item Value Reference Range Interpretation Comme nts Urine Opiates Screen (test c ode = 030428275) NEGATIVE [facility] CtrUrine hydrocodone measurement (mass/volume) 2025-03-05 19:39:00* Test Item Value Reference Range Interpretation Comme nts Hydrocodone Level (test code = 3681-4) NEGATIVE [facility] CtrUrine fentanyl measurement (mass/volume)2025-03-05 19:39:00* Test Item Value Reference Range Interpretation Comme nts Urine Fentanyl Screen (test code = 3637-6) NEGATIVE [facility] CtrPhencyclidine (PCP) sd5328-95-62 19:39:00* Test Item Value Reference Range Interpretation Comme nts Urine Phencyclidine (PCP) Le edilson (test code = 582501527) NEGATIVE [facility] CtrPropoxyphene [Mass/volume] in Dpkbv0508-34-26 19:39:00* Test Item Value Reference Range Interpretation Comme nts Propoxyphene Level (test cod e = 3545-1) NEGATIVE [facility] CtroxyCODONE [Mass/volume] in Adycl2717-75-70 19:39:00* Test Item Value Reference Range Interpretation Comme nts Oxycodone Level (test code = 12776-3) NEGATIVE [facility] CtrAmphetamine ur oouiuu5317-80-98 19:39:00* Test Item Value Reference Range Interpretation Comme nts Urine Amphetamines Screen (t est code = 38664-6) NEGATIVE [facility] MlaIornkkvvi8148-46-34 19:39:00* Test Item Value Reference Range Interpretation Comme nts Methadone Level (test code = ZSC0673) NEGATIVE [facility] CtrBenzodiazepines screen df1671-07-24 19:39:00* Test Item Value Reference Range Interpretation Comme [facility] Urine Benzodiazepines Screen (test code = 431704823) POSITIVE [facility] CtrCannabinoids (6-zrgmvja-FJV) pkkztcabttr7971-06-35 19:39:00* Test Item Value Reference Range Interpretation Comme nts Urine Cannabinoids (test cod e = 166776305) NEGATIVE [facility] CtrCocaine metabolite dztbah0469-13-25 19:39:00* Test Item Value Reference Range Interpretation Comme nts Urine Cocaine Metabolite (te st code = 380313765) NEGATIVE [facility] CtrOpiates jtbxc4553-76-71 19:39:00* Test Item Value Reference Range Interpretation Comme [facility] Urine Opiates Screen (test c ode = 330519026) NEGATIVE [facility] CtrUrine hydrocodone measurement (mass/volume) 2025-03-05 19:39:00* Test Item Value Reference Range Interpretation Comme nts Hydrocodone Level (test code = 3681-4) [facility]GATIVE [facility] f[facility]anyl [facility] (mass/volume)2025-03-05 19:39:00* Test Item Value Reference Range Interpretation Comme [facility] Urine Fentanyl Screen (test code = 3637-6) NEGATIVE [facility] CtrPhencyclidine (PCP) qa1971-42-63 19:39:00* Test Item Value Reference Range Interpretation Comme [facility] Urine Phencyclidine (PCP) Le edilson (test code = 570427578) NEGATIVE [facility] CtrPropoxyphene [Mass/volume] in Dmcte4251-30-05 19:39:00* Test Item Value Reference Range Interpretation Comme nts Propoxyphene Level (test cod e = 3545-1) NEGATIVE [facility] CtroxyCODONE [Mass/volume] in Gtfgm7390-05-79 19:39:00* Test Item Value Reference Range Interpretation Comme nts Oxycodone Level (test code = 94408-0) NEGATIVE [facility] CtrRBC count ur jrlx1041-18-57 19:33:00* Test Item Value Reference Range Interpretation Comme [facility] Urine RBC (test code = 798-9) 0-2 [facility] CtrUrine examination for white blood cells (WBC) 2025-03-05 19:33:00* Test Item Value Reference Range Interpretation Comme nts Urine WBC (test code = 584049905) 0-2 [facility] CtrAutomated epithelial cells count in urine sediment (number/area)2025-03-05 19:33:00* Test Item Value Reference Range Interpretation Comme nts Urine Epithelial Cells (test code = 24025-6) 0-2 [facility] CtrBacteria detection in urine sediment by light pyeflmrcag9272-46-85 19:33:00* Test Item Value Reference Range Interpretation Comme nts Urine Bacteria (test code = 73955-3) None Seen [facility] CtrUrine casts detection by automated method 2025-03-05 19:33:00* Test Item Value Reference Range Interpretation Comme nts Urine Casts (test code = 94530-3) 0-2 [facility] CtrRBC count ur upam7499-42-86 19:33:00* Test Item Value Reference Range Interpretation Comme nts Urine RBC (test code = 798-9) 0-2 [facility] CtrUrine examination for white blood cells (WBC) 2025-03-05 19:33:00* Test Item Value Reference Range Interpretation Comme nts Urine WBC (test code = 723843247) 0-2 [facility] CtrAutomated epithelial cells count in urine sediment (number/area)2025-03-05 19:33:00* Test Item Value Reference Range Interpretation Comme nts Urine Epithelial Cells (test code = 95393-0) 0-2 [facility] CtrBacteria detection in urine sediment by light grrlbfeuma8257-86-36 19:33:00* Test Item Value Reference Range Interpretation Comme nts Urine Bacteria (test code = 83080-4) None Seen [facility] CtrUrine casts detection by automated method 2025-03-05 19:33:00* Test Item Value Reference Range Interpretation Comme nts Urine Casts (test code = 38806-1) 0-2 [facility] CtrColor of Urine by Uwrd4972-42-39 19:28:00* Test Item Value Reference Range Interpretation Comme nts Urine Color (test code = 55850-8) Yellow [facility] CtrAppearance of Bdlts5330-13-40 19:28:00* Test Item Value Reference Range Interpretation Comme nts Urine Appearance (test code = 5767-9) Clear [facility] CtrUrine glucose vqzosxprq5142-15-44 19:28:00* Test Item Value Reference Range Interpretation Comme nts Urine Glucose (UA) (test cod e = 2349-9) Negative [facility] CtrBilirubin oo0186-58-00 19:28:00* Test Item Value Reference Range Interpretation Comme nts Urine Bilirubin (test code = 074730308) Negative [facility] CtrKetones ho0411-09-18 19:28:00* Test Item Value Reference Range Interpretation Comme nts Urine Ketones (test code = 54004226) Negative [facility] CtrSpecific gravity of Urine by Automated test strip 2025-03-05 19:28:00* Test Item Value Reference Range Interpretation Comme nts Urine Specific Archie (test code = 30537-2) 1.003 [facility] CenterUrine blood opbwgezzr3600-42-48 19:28:00* Test Item Value Reference Range Interpretation Comme nts Urine Blood (test code = 416304-4) Negative [facility] CtrpH qy3460-53-16 19:28:00* Test Item Value Reference Range Interpretation Comme nts Urine pH (test code = 2756-5) 6.000 [facility] CtrProtein ez3297-68-97 19:28:00* Test Item Value Reference Range Interpretation Comme nts Urine Protein (test code = 14490937) Negative [facility] CtrUrobilinogen, urine, an3593-43-27 19:28:00* Test Item Value Reference Range Interpretation Comme nts Urine Urobilinogen (test cod e = 430578172) 0.2 [facility] CtrUrine nitrate jykmegojm0279-09-83 19:28:00* Test Item Value Reference Range Interpretation Comme nts Urine Nitrate (test code = 49780-7) Negative [facility] Center[facility] leukocyte esterase pcqntvzxu8871-70-08 19:28:00* Test Item Value Reference Range Interpretation Comme nts Urine Leukocyte Esterase (te st code = 612324-5) Negative [facility] CtrColor of Urine by Xxje0826-74-00 19:28:00* Test Item Value Reference Range Interpretation Comme nts Urine Color (test code = 30184-0) Yellow [facility] CtrAppearance of Uhjyr0691-70-50 19:28:00* Test Item Value Reference Range Interpretation Comme nts Urine Appearance (test code = 5767-9) Clear [facility] CtrUrine glucose xgggyysri2756-57-59 19:28:00* Test Item Value Reference Range Interpretation Comme nts Urine Glucose (UA) (test cod e = 2349-9) Negative [facility] CtrBilirubin gv3895-04-42 19:28:00* Test Item Value Reference Range Interpretation Comme nts Urine Bilirubin (test code = 897870577) Negative [facility] CtrKetones wb0814-77-24 19:28:00* Test Item Value Reference Range Interpretation Comme [facility] Urine Ketones (test code = 26487776) Negative [facility] CenterSpecific gravity of Urine by Automated test strip 2025-03-05 19:28:00* Test Item Value Reference Range Interpretation Comme nts Urine Specific Archie (test code = 77031-3) 1.003 [facility] CenterUrine blood wvvzjxvyr0086-76-27 19:28:00* Test Item Value Reference Range Interpretation Comme nts Urine Blood (test code = 966423-2) Negative [facility] CtrpH zj2708-21-38 19:28:00* Test Item Value Reference Range Interpretation Comme nts Urine pH (test code = 2756-5) 6.000 [facility] CtrProtein zx1263-61-29 19:28:00* Test Item Value Reference Range Interpretation Comme nts Urine Protein (test code = 99766422) Negative [facility] CtrUrobilinogen, urine, yl5888-59-98 19:28:00* Test Item Value Reference Range Interpretation Comme nts Urine Urobilinogen (test cod e = 319688229) 0.2 [facility] CenterUrine nitrate ksinjpvbd3847-92-93 19:28:00* Test Item Value Reference Range Interpretation Comme nts Urine Nitrate (test code = 79846-3) Negative [facility] CtrUrine leukocyte esterase bhttutyoq7273-45-45 19:28:00* Test Item Value Reference Range Interpretation Comme [facility] Urine Leukocyte Esterase (te st code = 890546-5) Negative [facility] CtrAbsolute eosinophil kzlkj8308-84-38 19:17:00* Test Item Value Reference Range Interpretation Comme [facility] Eosinophils # (Auto) (test c ode = UPB7858) 0.18 [facility] CtrRBC ujnic8730-58-48 19:17:00* Test Item Value Reference Range Interpretation Comme [facility] Red Blood Count (test code = 18614272) 4.82 [facility] HmkYenaoeccso7977-81-18 19:17:00* Test Item Value Reference Range Interpretation Comme [facility] Hematocrit (test code = 03568562) 37.8 [facility] CtrMCV (mean corpuscular volume) determination 2025-03-05 19:17:00* Test Item Value Reference Range Interpretation Comme [facility] Mean Corpuscular Volume ([facility] t code = 75532-8) 78.4 [facility] CenterMean corpuscular hemoglobin (MCH) determination 2025-03-05 19:17:00* Test Item Value Reference Range Interpretation Comme [facility] Mean Corpuscular Hemoglobin (test code = 90647139) 24.5 [facility] CenterMean corpuscular hemoglobin concentration (MCHC) xzmolkzqcopea6111-90-24 19:17:00* Test Item Value Reference Range Interpretation Comme [facility] Mean Corpuscular Hemoglobin Concent (test code = 36061842) 31.2 [facility] CtrErythrocyte distribution width coefficient of vljydhokj4701-80-04 19:17:00* Test Item Value Reference Range Interpretation Comme [facility] Red Cell Distribution Width (test code = 24929278) 18.9 [facility] CtrPlatelet cqzql9502-15-00 19:17:00* Test Item Value Reference Range Interpretation Comme [facility] Platelet Count (test code = 14797605) 346 [facility] CtrMean platelet srarmk9737-22-06 19:17:00* Test Item Value Reference Range Interpretation Comme [facility] Mean Platelet Volume (test c ode = 35128671) 9.5 [facility] CtrNeutrophils seg % jbu4972-05-63 19:17:00* Test Item Value Reference Range Interpretation Comme nts Neutrophils (%) (Auto) (test code = 88009-9) 70.2 [facility] CtrAbsolute immature granulocyte rxfpw2554-97-27 19:17:00* Test Item Value Reference Range Interpretation Comme nts Absolute Immature Granulocyt e (auto (test code = 22367-5) 0.05 [facility] CtrBasophil % exxckn2638-58-53 19:17:00* Test Item Value Reference Range Interpretation Comme nts Basophils (%) (Auto) (test c ode = 46922-5) 0.4 [facility] CtrBlood band neutrophils count (number/volume) 2025-03-05 19:17:00* Test Item Value Reference Range Interpretation Comme nts Neutrophils # (Auto) (test c ode = 70653-8) 7.64 [facility] CtrAbsolute lymphocyte tojbg5852-84-41 19:17:00* Test Item Value Reference Range Interpretation Comme nts Lymphocytes # (Auto) (test c ode = 98538-9) 2.36 [facility] CtrAbsolute basophil owlld3356-90-58 19:17:00* Test Item Value Reference Range Interpretation Comme nts Basophils # (Auto) (test cod e = 99934179) 0.04 [facility] CtrAbsolute NRBC hmgky6738-39-90 19:17:00* Test Item Value Reference Range Interpretation Comme nts Nucleated Red Blood Cells # (test code = 230135835) 0 [facility] CtrAbsolute eosinophil hjvuc1207-98-52 19:17:00* Test Item Value Reference Range Interpretation Comme nts Eosinophils # (Auto) (test c ode = FGI6848) 0.18 [facility] CtrRBC qhqrw1244-08-31 19:17:00* Test Item Value Reference Range Interpretation Comme nts Red Blood Count (test code = 39295830) 4.82 [facility] IrpEkkbqglbjm0482-61-21 19:17:00* Test Item Value Reference Range Interpretation Comme nts Hematocrit (test code = 53573723) 37.8 [facility] CtrMCV (mean corpuscular volume) determination 2025-03-05 19:17:00* Test Item Value Reference Range Interpretation Comme [facility] Mean Corpuscular Volume (shailesh t code = 98380-4) 78.4 [facility] CtrMean corpuscular hemoglobin (MCH) determination 2025-03-05 19:17:00* Test Item Value Reference Range Interpretation Comme [facility] Mean Corpuscular Hemoglobin (test code = 32903443) 24.5 [facility] CtrMean corpuscular hemoglobin concentration (MCHC) nfflabdakzovw6258-40-12 19:17:00* Test Item Value Reference Range Interpretation Comme [facility] Mean Corpuscular Hemoglobin Concent (test code = 07040621) 31.2 [facility] CtrErythrocyte distribution width coefficient of bnkbetojq9738-42-34 19:17:00* Test Item Value Reference Range Interpretation Comme [facility] Red Cell Distribution Width (test code = 98748805) 18.9 [facility] CtrPlatelet vrlao1752-73-31 19:17:00* Test Item Value Reference Range Interpretation Comme [facility] Platelet Count (test code = 12112913) 346 [facility] CenterMean platelet sodffs7810-77-84 19:17:00* Test Item Value Reference Range Interpretation Comme [facility] Mean Platelet Volume (test c ode = 24610101) 9.5 [facility] CtrNeutrophils seg % znr3734-02-58 19:17:00* Test Item Value Reference Range Interpretation Comme nts Neutrophils (%) (Auto) (test code = 21602-6) 70.2 [facility] CtrAbsolute immature granulocyte tltwa8286-86-51 19:17:00* Test Item Value Reference Range Interpretation Comme nts Absolute Immature Granulocyt e (auto (test code = 33534-7) 0.05 [facility] CtrBasophil % jmmzym5100-13-85 19:17:00* Test Item Value Reference Range Interpretation Comme nts Basophils (%) (Auto) (test c ode = 97713-4) 0.4 [facility] CtrBlood band neutrophils count (number/volume) 2025-03-05 19:17:00* Test Item Value Reference Range Interpretation Comme nts Neutrophils # (Auto) (test c ode = 56152-1) 7.64 [facility] CtrAbsolute lymphocyte blqax7160-36-91 19:17:00* Test Item Value Reference Range Interpretation Comme nts Lymphocytes # (Auto) (test c ode = 99037-7) 2.36 [facility] CtrAbsolute basophil cwukd4784-67-49 19:17:00* Test Item Value Reference Range Interpretation Comme nts Basophils # (Auto) (test cod e = 39868880) 0.04 [facility] CenterAbsolute NRBC jvqyx4085-30-80 19:17:00* Test Item Value Reference Range Interpretation Comme nts Nucleated Red Blood Cells # (test code = 583770307) 0 [facility] CtrSerum or plasma cardiac troponin I panel by high sensitivity ejolpc7586-58-83 19:12:00* Test Item Value Reference Range Interpretation Comme nts Troponin T High Sensitivity (test code = 00708-2) < 6.0 [facility] CtrSerum beta human chorionic gonadotropic (BhCG) soyitynvt0034-02-67 19:11:00* Test Item Value Reference Range Interpretation Comme nts Serum Test, Qualit ative (test code = 2110-5) NEGATIVE [facility] CtrSerum beta human chorionic gonadotropic (BhCG) irfsvdgxm4633-39-76 19:11:00* Test Item Value Reference Range Interpretation Comme nts Serum Test, Qualit ative (test code = 2110-5) NEGATIVE [facility] CtrBilirubin evhcn4700-62-66 19:06:00* Test Item Value Reference Range Interpretation Comme nts Total Bilirubin (test code = ORZ3075) < 0.2 [facility] CtrSerum or plasma urea nitrogen measurement (mass/volume)2025-03-05 19:06:00* Test Item Value Reference Range Interpretation Comme nts Blood Urea Nitrogen (test co de = 3094-0) < 4 [facility] PsyWTW5281-59-62 19:06:00* Test Item Value Reference Range Interpretation Comme nts Aspartate Amino Transf (AST/ SGOT) (test code = NEX3806) 15 [facility] CtrCreatinine yhwcm4568-19-79 19:06:00* Test Item Value Reference Range Interpretation Comme nts Creatinine (test code = 975807166) 0.69 [facility] CtrEstimated glomerular filtration rate (GFR) fkvvrobnaiaie2963-24-18 19:06:00* Test Item Value Reference Range Interpretation Comme nts Glomerular Filtration Rate C alc (test code = 566247874) > 60.00 [facility] CtrBUN/creatinine fgfob6589-86-22 19:06:00* Test Item Value Reference Range Interpretation Comme nts BUN/Creatinine Ratio (test c ode = 66410010) 5.8 [facility] CtrBody fluid potassium mfqclvulooq8118-57-53 19:06:00* Test Item Value Reference Range Interpretation Comme nts Potassium Level (test code = 2821-7) 3.2 [facility] RhsJU42486-04-57 19:06:00* Test Item Value Reference Range Interpretation Comme nts Carbon Dioxide Level (test c ode = 81351720) 21 [facility] CtrAnion gap rjutsvumiym0351-43-39 19:06:00* Test Item Value Reference Range Interpretation Comme nts Anion Gap (test code = 28212379) 16.2 [facility] CtrCalcium zrbuj3843-88-00 19:06:00* Test Item Value Reference Range Interpretation Comme nts Calcium Level (test code = 72946472) 9.2 [facility] CtrGlobulin jhk2380-49-28 19:06:00* Test Item Value Reference Range Interpretation Comme nts Globulin (test code = 705025114) 2.7 [facility] CtrALT (SGPT) ser/ggnm7631-99-89 19:06:00* Test Item Value Reference Range Interpretation Comme nts Alanine Aminotransferase (AL T/SGPT) (test code = 1742-6) 15 [facility] CtrAmylase gqvkr4295-49-59 19:06:00* Test Item Value Reference Range Interpretation Comme nts Amylase Level (test code = 1798-8) 62 [facility] JbaGlhvrg6594-48-75 19:06:00* Test Item Value Reference Range Interpretation Comme nts Lipase (test code = 784709423) 28 [facility] CtrALP ser/tqxb7615-15-56 19:06:00* Test Item Value Reference Range Interpretation Comme nts Total Alkaline Phosphatase ( test code = 6768-6) 93 [facility] CtrBilirubin bvyfr7417-81-27 19:06:00* Test Item Value Reference Range Interpretation Comme nts Total Bilirubin (test code = CPK6639) < 0.2 [facility] CtrSerum or plasma urea nitrogen measurement (mass/volume)2025-03-05 19:06:00* Test Item Value Reference Range Interpretation Comme nts Blood Urea Nitrogen (test co de = 3094-0) < 4 [facility] MucCCW5533-69-65 19:06:00* Test Item Value Reference Range Interpretation Comme nts Aspartate Amino Transf (AST/ SGOT) (test code = AES7860) 15 [facility] CtrCreatinine jtgck3691-58-95 19:06:00* Test Item Value Reference Range Interpretation Comme nts Creatinine (test code = 146024742) 0.69 [facility] CtrEstimated glomerular filtration rate (GFR) eyyvbcfjyfkcz7454-42-47 19:06:00* Test Item Value Reference Range Interpretation Comme nts Glomerular Filtration Rate C alc (test code = 890225132) > 60.00 [facility] CtrBUN/creatinine vzzxz6153-21-95 19:06:00* Test Item Value Reference Range Interpretation Comme nts BUN/Creatinine Ratio (test c ode = 39800238) 5.8 [facility] CtrBody fluid potassium qzntqrwnshi4655-68-91 19:06:00* Test Item Value Reference Range Interpretation Comme nts Potassium Level (test code = 2821-7) 3.2 [facility] KdeKH49635-36-67 19:06:00* Test Item Value Reference Range Interpretation Comme nts Carbon Dioxide Level (test c ode = 65075665) 21 [facility] CtrAnion gap qvycjyizxsd3446-14-39 19:06:00* Test Item Value Reference Range Interpretation Comme nts Anion Gap (test code = 44867768) 16.2 [facility] CtrCalcium fuicg2894-25-47 19:06:00* Test Item Value Reference Range Interpretation Comme nts Calcium Level (test code = 76830217) 9.2 [facility] CtrGlobulin gnx9933-37-06 19:06:00* Test Item Value Reference Range Interpretation Comme nts Globulin (test code = 657193060) 2.7 [facility] CtrALT (SGPT) ser/taad3204-65-71 19:06:00* Test Item Value Reference Range Interpretation Comme nts Alanine Aminotransferase (AL T/SGPT) (test code = 1742-6) 15 [facility] CtrAmylase dmlrm0000-67-97 19:06:00* Test Item Value Reference Range Interpretation Comme nts Amylase Level (test code = 1798-8) 62 [facility] FwgJilhtu8049-31-33 19:06:00* Test Item Value Reference Range Interpretation Comme nts Lipase (test code = 441781162) 28 [facility] CtrALP ser/uuow5772-74-29 19:06:00* Test Item Value Reference Range Interpretation Comme nts Total Alkaline Phosphatase ( test code = 6768-6) 93 [facility] CtrAmylase hhspj0256-06-97 19:06:00* Test Item Value Reference Range Interpretation Comme nts Amylase Level (test code = 1798-8) 62 [facility] CenterCT [facility] P[facility] W SQIOWVTJ5582-61-79 01:09:19 EXAMINATION: CT ABDOMEN PELVIS W CONTRAST ORDERING PHYSICIAN: RAMIREZ CALDERON HISTORY: Epigastric TECHNIQUE: CT of the abdomen and pelvis with contrast. Iodinatedintravenous contrast was administered per protocol. No enteric contrast.This examination was performed according to ALARA principles. C OMPARISON: CT abdomen and pelvis 11/10/2024, 10/23/2024, and 07/03/2024.. FINDINGS: SUPPORT DEVICES: Subpleural reticular opacities within the dependent aspectof both lungs compatible with atelectasis or scarring. LOWER CHEST: Normal. ABDOMEN/PELVIS:Liver: Normal.Gallbladder/biliary: Postcholecystectomy. No biliary ductal dilation. Pancreas: Normal.Spleen: Normal.Adrenal glands: Unchanged indeterminate left adrenal nodule measuring 2.6 x2.8 cm with attenuation of 53 Hounsfield units. Normal appearance of theright adrenal gland. Kidneys and ureters: Normal.Bladder: Decompressed, which limits evalu ation.Reproductive organs: Normal for age. Stomach/bowel: Normal appearance of the stomach. Small fluid-filled loop ofproximal small bowel.. Normal appearance of the colon.Appendix: Normal. Lymph nodes: No lymphadenopathy.Peritoneum: No intraperitoneal free fluid. No pneumoperitoneum.Vessels: Normal. MUSCULOSKELETAL:Abdominal wall: No hernia or soft tissue mass.Bones: No acute osseous abnormality.[facility] 23:05:00* Test Item Value Reference Range Interpretation Comme nts POCT PREG (test code = 1605) Negative On board controls acceptable with C Line (test code = 3574) Yes POCT PREG LOT # (test code = 3575) 07-08-2026 POCT PREG TEST DATE ( test code = 3576) 698859 Lab Interpretation (test cod e = 14736-5) Normal [facility]fieldTR[facility]ONIN B1802-94-45 22:39:57* Test Item Value Reference Range Interpretation Comme nts TROPONIN I (test code = 8896923736) 0.003 ng/mL <=0.034 DARWIN (test code = [...] of biotin. Lab Interpretation (test code = 67624-9) Normal [facility]. METABOLIC PANEL (84154)2025-03-04 22:28:51* Test Item Value Reference Range Interpretation Comme nts NA (test code = 5238419211) 136 mmol/L 135-145 K (test code = 8525696231) 3.3 mmol/L 3.5-5.0 L CL (test code = 8006645236) 107 mmol/L 98-108 CO2 TOTAL (test code = 1072670665) 21 mmol/L 23-31 L AGAP (test code = 9583861942) 8 2-16 BUN (test code = 0403969515) 4 mg/dL 7-23 L GLUCOSE (test code = 2744364601) 134 mg/dL 70-110 H CREATININE (test code = 2160-0) 0.5 mg/dL 0.50-1.04 TOTAL BILI (test code = 7451012186) 0.4 mg/dL 0.1-1.1 CALCIUM (test code = 9971669953) 9 mg/dL 8.6-10.6 T PROTEIN (test code = 6813677718) 6.4 g/dL 6.3-8.2 ALBUMIN (test code = 4475360381) 3.7 g/dL 3.5-5.0 ALK PHOS (test code = 4549245838) 66 U/L 34-122 ALTv (test code = 1742-6) 14 U/L 5-35 AST(SGOT) (test code = 4489919023) 19 U/L 13-40 eGFR (test code = 92313-5) 117.3 mL/min/1.73m2 CKD-EPI eGFR (2020). Assuming creatinine has been stable day-to-day for at least three months, the eGFR indicates Category G1 (>= 90 mL/min/1.73 m2) Lab Interpretation (test code = 30008-8) [facility]normal [facility]fieldLIPASE2025-08-28 22:28:30* Test Item Value Reference Range Interpretation Comme nts LIPASE (test code = 4054784522) 106 U/L 0-220 Lab Interpretation (test cod e = 26887-0) Normal [facility]fieldCB WITH BAQH9658-40-03 22:09:45* Test Item Value Reference Range Interpretation [...] 31.6 g/dL 31.6-35.1 RDW-SD (test code = 99395-5) 51.5 fL 39.0-49.9 H RDW-CV (test code = 788-0) 18.5 % 12.0-15.5 H PLT (test code = 777-3) 355 166-358 MPV (test code = 37866-8) 9.3 fL 9.5-12.9 L NRBC/100 WBC (test code = 3814642916) 0 0.0-10.0 NRBC x10^3 (test code = 1997469118) See_Comment [Automated messa ge] The system which generated this result transmitted reference range: 10*3/?L. The reference range was not used to interpret this result as normal/abnormal. GRAN MAT (NEUT) % (test code = 770-8) 61.3 % IMM GRAN % (test code = 2762319426) 0.5 % LYMPH % (test code = 736-9) 30.3 % MONO % (test code = 5905-5) 5.2 % EOS % (test code = 713-8) 2.3 % BASO % (test code = 706-2) 0.4 % GRAN MAT x10^3(ANC) (test code = 1500825260) 6.34 10*3/uL 1.88-7.09 IMM GRAN x10^3 (test code = 0824054047) 0.05 10*3/uL 0.00-0.06 LYMPH x10^3 (test code = 731-0) 3.13 10*3/uL 1.32-3.29 MONO x10^3 (test code = 742-7) 0.54 10*3/uL 0.33-0.92 EOS x10^3 (test code = 711-2) 0.24 10*3/uL 0.03-0.39 BASO x10^3 (test code = 704-7) 0.04 10*3/uL 0.01-0.07 Lab Interpretation (test code = 55092-2) [facility]normal [facility]fieldCOMP. METABOLIC PANEL (95388)2024-12-14 19:50:23* Test Item Value Reference Range Interpretation Comme nts NA (test code = 0646912349) 135 mmol/L 135-145 K (test code = 9267428840) 4.2 mmol/L 3.5-5.0 CL (test code = 4707767265) 104 mmol/L 98-108 CO2 TOTAL (test code = 0993463605) 21 mmol/L 23-31 L AGAP (test code = 8054738058) 10 2-16 BUN (test code = 3157230159) 10 mg/dL 7-23 GLUCOSE (test code = 5144362294) 87 mg/dL 70-110 CREATININE (test code = 2160-0) 0.62 mg/dL 0.50-1.04 TOTAL BILI (test code = 7234106066) 0.3 mg/dL 0.1-1.1 CALCIUM (test code = 0244435158) 9.2 mg/dL 8.6-10.6 T PROTEIN (test code = 2656454779) 7.3 g/dL 6.3-8.2 ALBUMIN (test code = 2753223766) 4.2 g/dL 3.5-5.0 ALK PHOS (test code = 3276403595) 75 U/L 34-122 ALTv (test code = 1742-6) 17 U/L 5-35 AST(SGOT) (test code = 6410098937) 21 U/L 13-40 eGFR (test code = 16755-4) 112.1 mL/min/1.73m2 CKD-EPI eGFR (2020). Assuming creatinine has been stable day-to-day for at least three months, the eGFR indicates Category G1 (>= 90 mL/min/1.73 m2) Lab Interpretation (test code = 43646-7) [facility]normal [facility] 19:50:03* Test Item Value Reference Range Interpretation Comme nts LIPASE (test code = 8218486538) 77 U/L 0-220 Lab Interpretation (test cod e = 00587-2) Normal [facility]fieldPOCT BOYK5420-55-51 19:48:00* Test Item Value Reference Range Interpretation Comme nts POCT PREG (test code = 1605) Negative On board controls acceptable with C Line (test code = 3574) Yes Lab Interpretation (test cod e = 03793-6) Normal [facility]fieldCBC WITH [id number] 19:40:20* Test Item Value Reference Range Interpretation [...] 31.9 g/dL 31.6-35.1 RDW-SD (test code = 38436-7) 48.7 fL 39.0-49.9 RDW-CV (test code = 788-0) 17.2 % 12.0-15.5 H PLT (test code = 777-3) 444 166-358 H MPV (test code = 44612-3) 8.8 fL 9.5-12.9 L NRBC/100 WBC (test code = 8568228304) 0 0.0-10.0 NRBC x10^3 (test code = 5209467690) See_Comment [Automated messa ge] The system which generated this result transmitted reference range: 10*3/?L. The reference range was not used to interpret this result as normal/abnormal. GRAN MAT (NEUT) % (test code = 770-8) 70 % IMM GRAN % (test code = 0118051962) 0.4 % LYMPH % (test code = 736-9) 21.2 % MONO % (test code = 5905-5) 7 % EOS % (test code = 713-8) 1.2 % BASO % (test code = 706-2) 0.2 % GRAN MAT x10^3(ANC) (test code = 8961131557) 8.43 10*3/uL 1.88-7.09 H IMM GRAN x10^3 (test code = 7519878139) 0.05 10*3/uL 0.00-0.06 LYMPH x10^3 (test code = 731-0) 2.56 10*3/uL 1.32-3.29 MONO x10^3 (test code = 742-7) 0.85 10*3/uL 0.33-0.92 EOS x10^3 (test code = 711-2) 0.15 10*3/uL 0.03-0.39 BASO x10^3 (test code = 704-7) 0.03 10*3/uL 0.01-0.07 Lab Interpretation (test code = 32181-8) Abnormal [facility] or plasma cardiac troponin I panel by high sensitivity bjlifu1100-07-66 21:02:00* Test Item Value Reference Range Interpretation Comme nts Troponin T High Sensitivity (test code = 45020-6) < 6.0 [facility] CtrNT-proBNP pxxbbosrckv4666-60-02 19:10:00* Test Item Value Reference Range Interpretation Comme nts PF-Ajx-A-Type Natriuretic Pe ptide (test code = 586200308) 173 [facility] CtrSerum or plasma creatine kinase MB (CK-MB) measurement by immunoassay (mass/volume)2024-12-10 19:09:00* Test Item Value Reference Range Interpretation Comme nts Creatine Kinase MB (test cod e = 75692-7) < 1.0 [facility] FsxK-jxcxz2417-11-05 19:07:00* Test Item Value Reference Range Interpretation Comme nts D-Dimer (test code = 873744975) 227 [facility] CtrSerum or plasma glucose measurement (mass/volume) 2024-12-10 19:06:00* Test Item Value Reference Range Interpretation Comme nts Random Glucose (test code = 2345-7) 100 [facility] CtrSerum or plasma urea nitrogen measurement (mass/volume)2024-12-10 19:06:00* Test Item Value Reference Range Interpretation Comme nts Blood Urea Nitrogen (test co de = 3094-0) 10 [facility] SvxKKB6481-31-57 19:06:00* Test Item Value Reference Range Interpretation Comme nts Aspartate Amino Transf (AST/ SGOT) (test code = YKE1393) 13 [facility] CtrBilirubin evmlj7807-74-46 19:06:00* Test Item Value Reference Range Interpretation Comme nts Total Bilirubin (test code = ZLI6031) < 0.2 [facility] CtrEstimated glomerular filtration rate (GFR) mxnrqowrukqlb6546-02-10 19:06:00* Test Item Value Reference Range Interpretation Comme [facility] Glomerular Filtration Rate C alc (test code = 269649138) > 60.00 [facility] CtrBUN/creatinine bucty8140-23-77 19:06:00* Test Item Value Reference Range Interpretation Comme nts BUN/Creatinine Ratio (test c ode = 40382772) 20.8 [facility] KepQC53527-65-75 19:06:00* Test Item Value Reference Range Interpretation Comme nts Carbon Dioxide Level (test c ode = 01461657) 25 [facility] CtrAnion gap ylgktmeqmyc0932-66-80 19:06:00* Test Item Value Reference Range Interpretation Comme nts Anion Gap (test code = 71656413) 13.6 [facility] CtrCalcium zpezc8922-98-17 19:06:00* Test Item Value Reference Range Interpretation Comme nts Calcium Level (test code = 57693183) 9.3 [facility] CtrGlobulin drx6879-41-97 19:06:00* Test Item Value Reference Range Interpretation Comme nts Globulin (test code = 475342519) 3.0 [facility] CtrALT (SGPT) ser/ffcw0006-36-85 19:06:00* Test Item Value Reference Range Interpretation Comme nts Alanine Aminotransferase (AL T/SGPT) (test code = 1742-6) 11 [facility] JqsKduahh1619-93-94 19:06:00* Test Item Value Reference Range Interpretation Comme nts Lipase (test code = 522675063) 28 [facility] CtrALP ser/psvt1272-78-71 19:06:00* Test Item Value Reference Range Interpretation Comme [facility] Total Alkaline Phosphatase ( test code = 6768-6) 84 [facility] CtrCreatine kinase kkiqkbslqen5470-78-21 19:06:00* Test Item Value Reference Range Interpretation Comme [facility] Creatine Kinase (test code = 662666272) 35 [facility] CtrProthrombin pnhl1653-40-29 18:59:00* Test Item Value Reference Range Interpretation Comme [facility] Prothrombin Time (test code = 339307863) 10.3 [facility] CtrWhole blood INR fpvhbtkfxlz9320-06-17 18:59:00* Test Item Value Reference Range Interpretation Comme [facility] Prothromb Time International Ratio (test code = 94937-6) 0.94 [facility] CtrActivated partial thromboplastin time (aPTT) in platelet poor plasma by coagulation hxafe3068-71-72 18:59:00* Test Item Value Reference Range Interpretation Comme [facility] Activated Partial Thrombopla st Time (test code = 22667-1) 24.6 [facility] CtrSerum beta human chorionic gonadotropic (BhCG) cbiqnwuxv4398-06-60 18:59:00* Test Item Value Reference Range Interpretation Comme [facility] Serum Test, Qualit ative (test code = 2110-5) NEGATIVE [facility] CtrAbsolute eosinophil ctler4480-81-84 18:48:00* Test Item Value Reference Range Interpretation Comme [facility] Eosinophils # (Auto) (test c ode = ODS9570) 0.24 [facility] CtrRBC bjxbs2063-73-88 18:48:00* Test Item Value Reference Range Interpretation Comme [facility] Red Blood Count (test code = 65136581) 4.51 [facility] OgsHvxrmtzjga7848-76-35 18:48:00* Test Item Value Reference Range Interpretation Comme [facility] Hematocrit (test code = 89381913) 35.7 [facility] CtrMCV (mean corpuscular volume) determination 2024-12-10 18:48:00* Test Item Value Reference Range Interpretation Comme [facility] Mean Corpuscular Volume (shailesh t code = 31503-8) 79.2 [facility] CtrMean corpuscular hemoglobin (MCH) determination 2024-12-10 18:48:00* Test Item Value Reference Range Interpretation Comme [facility] Mean Corpuscular Hemoglobin (test code = 57870923) 25.1 [facility] CenterMean corpuscular hemoglobin concentration (MCHC) ryflzebnmcqun0110-96-19 18:48:00* Test Item Value Reference Range Interpretation Comme [facility] Mean Corpuscular Hemoglobin Concent (test code = 83429685) 31.7 [facility] CtrRBC distribution width coefficient of variation 2024-12-10 18:48:00* Test Item Value Reference Range Interpretation Comme [facility] Red Cell Distribution Width (test code = 05340478) 16.9 [facility] CtrPlatelet njtbl8957-41-97 18:48:00* Test Item Value Reference Range Interpretation Comme [facility] Platelet Count (test code = 73740918) 395 [facility] CtrMean platelet ximzhn5571-57-60 18:48:00* Test Item Value Reference Range Interpretation Comme [facility] Mean Platelet Volume (test c ode = 80048705) 8.8 [facility] CtrNeutrophils seg % wga1138-50-18 18:48:00* Test Item Value Reference Range Interpretation Comme [facility] Neutrophils (%) (Auto) (test code = 28268-7) 53.2 [facility] CtrAbsolute immature granulocyte dbwdl3651-64-36 18:48:00* Test Item Value Reference Range Interpretation Comme [facility] Absolute Immature Granulocyt e (auto (test code = 83980-1) 0.03 [facility] CtrBasophil % ricptv0704-58-61 18:48:00* Test Item Value Reference Range Interpretation Comme nts Basophils (%) (Auto) (test c ode = 37461-7) 0.4 [facility] CtrBlood band neutrophils count (number/volume) 2024-12-10 18:48:00* Test Item Value Reference Range Interpretation Comme [facility] Neutrophils # (Auto) (test c ode = 11401-8) 4.46 [facility] CtrAbsolute lymphocyte xvdkh7317-03-93 18:48:00* Test Item Value Reference Range Interpretation Comme nts Lymphocytes # (Auto) (test c ode = 16150-9) 3.09 [facility] CtrAbsolute basophil dfxwz0994-99-94 18:48:00* Test Item Value Reference Range Interpretation Comme nts Basophils # (Auto) (test cod e = 74046377) 0.03 [facility] CtrAbsolute NRBC anutd9712-68-24 18:48:00* Test Item Value Reference Range Interpretation Comme nts Nucleated Red Blood Cells # (test code = 826410977) 0 [facility] CtrEKG (SCANNED DOCUMENTS)2024-12-09 20:20:06Ordered by an unspecified provider.[facility] 2024-[facility]-09 02:28:53* Test Item Value Reference Range Interpretation Comme nts TROPONIN I (test code = 9582953610) 0.003 ng/mL <=0.034 DARWIN (test code = [...] of biotin. Lab Interpretation (test code = 21494-1) Normal [facility]fieldN-TERMINAL RED-OZK2236-94-04 02:26:17* Test Item Value Reference Range Interpretation Comme nts NT-proBNP (test code = 03740-6) 47 pg/mL <=125 Lab Interpretation (test cod e = 54642-7) Normal [facility]fieldCOMP. METABOLIC PANEL (49219)2024-12-09 02:17:14* Test Item Value Reference Range Interpretation Comme nts NA (test code = 2332981702) 139 mmol/L 135-145 K (test code = 9118288152) 3.2 mmol/L 3.5-5.0 L CL (test code = 4188747341) 106 mmol/L 98-108 CO2 TOTAL (test code = 4522420871) 23 mmol/L 23-31 AGAP (test code = 9574389885) 10 2-16 BUN (test code = 4803923143) 12 mg/dL 7-23 GLUCOSE (test code = 9394687596) 117 mg/dL 70-110 H CREATININE (test code = 2160-0) 0.63 mg/dL 0.50-1.04 TOTAL BILI (test code = 5910388113) 0.1 mg/dL 0.1-1.1 CALCIUM (test code = 8621558685) 9 mg/dL 8.6-10.6 T PROTEIN (test code = 9394579196) 6.4 g/dL 6.3-8.2 ALBUMIN (test code = 2711663186) 3.7 g/dL 3.5-5.0 ALK PHOS (test code = 3675556439) 63 U/L 34-122 ALTv (test code = 1742-6) 17 U/L 5-35 AST(SGOT) (test code = 9455023371) 16 U/L 13-40 eGFR (test code = 84356-4) 111.6 mL/min/1.73m2 CKD-EPI eGFR (2020). Assuming creatinine has been stable day-to-day for at least three months, the eGFR indicates Category G1 (>= 90 mL/min/1.73 m2) Lab Interpretation (test code = 92636-7) Abnormal [facility] WITH EXUK1566-61-93 02:00:12* Test Item Value Reference Range Interpretation [...] 32.4 g/dL 31.6-35.1 RDW-SD (test code = 22286-3) 51.7 fL 39.0-49.9 H RDW-CV (test code = 788-0) 17.3 % 12.0-15.5 H PLT (test code = 777-3) 377 166-358 H MPV (test code = 70738-5) 9.3 fL 9.5-12.9 L NRBC/100 WBC (test code = 2403716444) 0 0.0-10.0 NRBC x10^3 (test code = 5643134697) See_Comment [Automated messa ge] The system which generated this result transmitted reference range: 10*3/?L. The reference range was not used to interpret this result as normal/abnormal. GRAN MAT (NEUT) % (test code = 770-8) 53.2 % IMM GRAN % (test code = 6763859501) 0.4 % LYMPH % (test code = 736-9) 37.2 % MONO % (test code = 5905-5) 6 % EOS % (test code = 713-8) 2.7 % BASO % (test code = 706-2) 0.5 % GRAN MAT x10^3(ANC) (test code = 2381163513) 3.91 10*3/uL 1.88-7.09 IMM GRAN x10^3 (test code = 5833482086) 0.03 10*3/uL 0.00-0.06 LYMPH x10^3 (test code = 731-0) 2.74 10*3/uL 1.32-3.29 MONO x10^3 (test code = 742-7) 0.44 10*3/uL 0.33-0.92 EOS x10^3 (test code = 711-2) 0.2 10*3/uL 0.03-0.39 BASO x10^3 (test code = 704-7) 0.04 10*3/uL 0.01-0.07 Lab Interpretation (test code = 64529-8) [facility]normal [facility]fieldQuang [id number] 04:09:19* Test Item Value Reference Range Interpretation Comme nts TROPONIN I (test code = 4854147443) 0.002 ng/mL <=0.034 DARWIN (test code = [...] of biotin. Lab Interpretation (test code = 33357-1) Normal [facility]fieldXR Chest 1 [id number] 00:10:33CHEST ONE VIEW ORDERING PHYSICIAN: KLAUDIA NARVAEZ CLINICAL HISTORY:Chest pain ; TECHNIQUE: Single frontal radiograph of the chest was obtained. COMPARISON: Radiograph 10/31/2024. FINDINGS: Cardiac silhouette is within normal limits. No focal lung consolidation. Nopneumothorax or pleural effusion. Noacute osseous abnormality. [facility]fieldSerum or plasma glucose measurement (mass/volume)2024-11-15 12:58:00* Test Item Value Reference Range Interpretation Comme [facility] Random Glucose (test code = 2345-7) 109 [facility] CtrSerum or plasma urea nitrogen measurement (mass/volume)2024-11-15 12:58:00* Test Item Value Reference Range Interpretation Comme nts Blood Urea Nitrogen (test co de = 3094-0) 7 [facility] CdkGNU4737-80-30 12:58:00* Test Item Value Reference Range Interpretation Comme nts Aspartate Amino Transf (AST/ SGOT) (test code = ZKD6741) 13 [facility] CtrBilirubin iyrqq9246-32-79 12:58:00* Test Item Value Reference Range Interpretation Comme [facility] Total Bilirubin (test code = AMP8252) < 0.2 [facility] CtrEstimated glomerular filtration rate (GFR) oixtkoxcnwgqm2670-24-43 12:58:00* Test Item Value Reference Range Interpretation Comme nts Glomerular Filtration Rate C alc (test code = 458989256) > 60.00 [facility] CtrBUN/creatinine fpquy5037-60-95 12:58:00* Test Item Value Reference Range Interpretation Comme nts BUN/Creatinine Ratio (test c ode = 17204032) 14.9 [facility] FdbBA76160-97-45 12:58:00* Test Item Value Reference Range Interpretation Comme nts Carbon Dioxide Level (test c ode = 04775938) 19 [facility] CtrAnion gap ewdobyhbrvf0414-32-42 12:58:00* Test Item Value Reference Range Interpretation Comme nts Anion Gap (test code = 70084090) 18.2 [facility] CtrCalcium wxptl8819-55-52 12:58:00* Test Item Value Reference Range Interpretation Comme nts Calcium Level (test code = 66892372) 9.3 [facility] CtrGlobulin ltr4181-83-80 12:58:00* Test Item Value Reference Range Interpretation Comme nts Globulin (test code = 075100217) 3.0 [facility] CtrALT (SGPT) ser/ekiz1912-63-23 12:58:00* Test Item Value Reference Range Interpretation Comme nts Alanine Aminotransferase (AL T/SGPT) (test code = 1742-6) 12 [facility] HglEbuoce9204-68-16 12:58:00* Test Item Value Reference Range Interpretation Comme nts Lipase (test code = 005577211) 24 [facility] CtrALP ser/vvhp4999-92-19 12:58:00* Test Item Value Reference Range Interpretation Comme nts Total Alkaline Phosphatase ( test code = 6768-6) 80 [facility] CtrAbsolute eosinophil foifq3490-87-62 12:46:00* Test Item Value Reference Range Interpretation Comme nts Eosinophils # (Auto) (test c ode = ITN7562) 0.23 [facility] CtrRBC ubego6862-69-78 12:46:00* Test Item Value Reference Range Interpretation Comme nts Red Blood Count (test code = 10524201) 4.53 [facility] GohAzklcsqwpv7904-74-23 12:46:00* Test Item Value Reference Range Interpretation Comme [facility] Hematocrit (test code = 74479798) 36.1 [facility] CtrMCV (mean corpuscular volume) determination 2024-11-15 12:46:00* Test Item Value Reference Range Interpretation Comme [facility] Mean Corpuscular Volume (shailesh t code = 68207-7) 79.7 [facility] CtrMean corpuscular hemoglobin (MCH) determination 2024-11-15 12:46:00* Test Item Value Reference Range Interpretation Comme [facility] Mean Corpuscular Hemoglobin (test code = 24142646) 25.2 [facility] CtrMean corpuscular hemoglobin concentration (MCHC) rxeuatcrqduvy5560-89-95 12:46:00* Test Item Value Reference Range Interpretation Comme [facility] Mean Corpuscular Hemoglobin Concent (test code = 13492922) 31.6 [facility] CtrRBC distribution width coefficient of variation 2024-11-15 12:46:00* Test Item Value Reference Range Interpretation Comme [facility] Red Cell Distribution Width (test code = 04954113) 17.6 [facility] CtrPlatelet fpbgj4670-67-46 12:46:00* Test Item Value Reference Range Interpretation Comme [facility] Platelet Count (test code = 92542693) 378 [facility] CtrMean platelet wzqcdi2537-45-88 12:46:00* Test Item Value Reference Range Interpretation Comme [facility] Mean Platelet Volume (test c ode = 40547743) 8.6 [facility] CtrNeutrophils seg % xor6758-61-88 12:46:00* Test Item Value Reference Range Interpretation Comme nts Neutrophils (%) (Auto) (test code = 48560-8) 62.5 [facility] CtrAbsolute immature granulocyte rxlyn3225-63-36 12:46:00* Test Item Value Reference Range Interpretation Comme nts Absolute Immature Granulocyt e (auto (test code = 41367-0) 0.03 [facility] CtrBasophil % vigxyd8339-22-22 12:46:00* Test Item Value Reference Range Interpretation Comme nts Basophils (%) (Auto) (test c ode = 38905-8) 0.4 [facility] CtrBlood band neutrophils count (number/volume) 2024-11-15 12:46:00* Test Item Value Reference Range Interpretation Comme nts Neutrophils # (Auto) (test c ode = 29965-5) 5.18 [facility] CtrAbsolute lymphocyte yyfqt6985-04-76 12:46:00* Test Item Value Reference Range Interpretation Comme nts Lymphocytes # (Auto) (test c ode = 28750-8) 2.32 [facility] CtrAbsolute basophil isbwc1599-90-62 12:46:00* Test Item Value Reference Range Interpretation Comme nts Basophils # (Auto) (test cod e = 75960690) 0.03 [facility] CtrAbsolute NRBC ojlvu1800-52-78 12:46:00* Test Item Value Reference Range Interpretation Comme nts Nucleated Red Blood Cells # (test code = 266585876) 0 [facility] CtrRBC count ur rgla4809-75-59 12:27:00* Test Item Value Reference Range Interpretation Comme nts Urine RBC (test code = 798-9) >100 [facility] CtrUrine examination for white blood cells (WBC) 2024-11-15 12:27:00* Test Item Value Reference Range Interpretation Comme nts Urine WBC (test code = 323561747) 0-2 [facility] CtrAutomated epithelial cells count in urine sediment (number/area)2024-11-15 12:27:00* Test Item Value Reference Range Interpretation Comme nts Urine Epithelial Cells (test code = 70602-6) 3-5 [facility] CtrBacteria detection in urine sediment by light edwhzhmwon7742-38-56 12:27:00* Test Item Value Reference Range Interpretation Comme nts Urine Bacteria (test code = 96245-0) None Seen [facility] CtrUrine casts detection by automated method 2024-11-15 12:27:00* Test Item Value Reference Range Interpretation Comme nts Urine Casts (test code = 66912-8) 0-2 [facility] CtrRBC count ur iavu9288-38-73 12:27:00* Test Item Value Reference Range Interpretation Comme nts Urine RBC (test code = 798-9) >100 [facility] CtrUrine examination for white blood cells (WBC) 2024-11-15 12:27:00* Test Item Value Reference Range Interpretation Comme nts Urine WBC (test code = 707957422) 0-2 [facility] CtrAutomated epithelial cells count in urine sediment (number/area)2024-11-15 12:27:00* Test Item Value Reference Range Interpretation Comme nts Urine Epithelial Cells (test code = 90659-4) 3-5 [facility] CtrBacteria detection in urine sediment by light qttgbogyvf8974-17-40 12:27:00* Test Item Value Reference Range Interpretation Comme nts Urine Bacteria (test code = 63877-2) None [facility]en [facility] CenterU[facility] casts detection by automated method 2024-11-15 12:27:00* Test Item Value Reference Range Interpretation Comme nts Urine Casts (test code = 68347-7) 0-2 [facility] CenterHCG ur KG1271-95-41 12:23:00* Test Item Value Reference Range Interpretation Comme nts Urine HCG, Qualitative (test code = 2106-3) NEGATIVE [facility] CenterHCG ur BK2970-67-50 12:23:00* Test Item Value Reference Range Interpretation Comme nts Urine HCG, Qualitative (test code = 2106-3) NEGATIVE [facility] CtrColor of Urine by Noxz0397-92-17 12:22:00* Test Item Value Reference Range Interpretation Comme nts Urine Color (test code = 55857-2) Yellow [facility] CtrAppearance of Yqdym5369-73-94 12:22:00* Test Item Value Reference Range Interpretation Comme nts Urine Appearance (test code = 5767-9) Clear [facility] CenterUrine glucose frlgtedej4104-60-40 12:22:00* Test Item Value Reference Range Interpretation Comme nts Urine Glucose (UA) (test cod e = 2349-9) Negative [facility] CtrBilirubin nr7621-67-03 12:22:00* Test Item Value Reference Range Interpretation Comme nts Urine Bilirubin (test code = 336587434) Negative [facility] CtrKetones bz7335-10-15 12:22:00* Test Item Value Reference Range Interpretation Comme nts Urine Ketones (test code = 98661182) Negative [facility] CtrSpecific gravity of Urine by Automated test strip 2024-11-15 12:22:00* Test Item Value Reference Range Interpretation Comme nts Urine Specific Archie (test code = 35317-3) 1.006 [facility] CtrUrine blood aqeujbalj1233-43-79 12:22:00* Test Item Value Reference Range Interpretation Comme nts Urine Blood (test code = 437478-3) 3+ (LARGE) [facility] CtrpH xm6329-43-83 12:22:00* Test Item Value Reference Range Interpretation Comme nts Urine pH (test code = 2756-5) 5.500 [facility] CtrProtein qg5313-95-34 12:22:00* Test Item Value Reference Range Interpretation Comme nts Urine Protein (test code = 80244801) Negative [facility] CtrUrobilinogen, urine, xa4210-27-37 12:22:00* Test Item Value Reference Range Interpretation Comme nts Urine Urobilinogen (test cod e = 180530604) 0.2 [facility] CenterUrine nitrate rqadpjygc1437-97-35 12:22:00* Test Item Value Reference Range Interpretation Comme nts Urine Nitrate (test code = 81489-3) Negative [facility] CenterUrine leukocyte esterase txforyfkb1028-73-80 12:22:00* Test Item Value Reference Range Interpretation Comme nts Urine Leukocyte Esterase (te st code = 828051-6) Negative [facility] CtrColor of Urine by Fylt7967-26-68 12:22:00* Test Item Value Reference Range Interpretation Comme nts Urine Color (test code = 33031-2) Yellow [facility] CtrAppearance of Grzfd7727-39-71 12:22:00* Test Item Value Reference Range Interpretation Comme nts Urine Appearance (test code = 5767-9) Clear [facility] CtrUrine glucose apftnpusx5389-89-92 12:22:00* Test Item Value Reference Range Interpretation Comme nts Urine Glucose (UA) (test cod e = 2349-9) Negative [facility] CtrBilirubin df0839-14-90 12:22:00* Test Item Value Reference Range Interpretation Comme nts Urine Bilirubin (test code = 877942874) Negative [facility] CtrKetones dy2954-24-21 12:22:00* Test Item Value Reference Range Interpretation Comme nts Urine Ketones (test code = 54298555) Negative [facility] CtrSpecific gravity of Urine by Automated test strip 2024-11-15 12:22:00* Test Item Value Reference Range Interpretation Comme nts Urine Specific Archie (test code = 81983-1) 1.006 [facility] CtrUrine blood eunywznws3432-44-50 12:22:00* Test Item Value Reference Range Interpretation Comme nts Urine Blood (test code = 799568-5) 3+ (LARGE) [facility] CtrpH ez1392-97-35 12:22:00* Test Item Value Reference Range Interpretation Comme nts Urine pH (test code = 2756-5) 5.500 [facility] CtrProtein gm1568-17-82 12:22:00* Test Item Value Reference Range Interpretation Comme nts Urine Protein (test code = 13291577) Negative [facility] CtrUrobilinogen, urine, gl4549-26-54 12:22:00* Test Item Value Reference Range Interpretation Comme nts Urine Urobilinogen (test cod e = 385267743) 0.2 [facility] CtrUrine nitrate eavmpewlo2089-43-68 12:22:00* Test Item Value Reference Range Interpretation Comme nts Urine Nitrate (test code = 14518-0) Negative [facility] CtrUrine leukocyte esterase xeznjykma3989-63-30 12:22:00* Test Item Value Reference Range Interpretation Comme nts Urine Leukocyte Esterase (te st code = 122068-0) Negative [facility] CtrPOCT SZMP1200-39-14 01:45:00* Test Item Value Reference Range Interpretation Comme nts POCT PREG (test code = 1605) Negative On board controls acceptable with C Line (test code = 3574) Yes POCT PREG LOT # (test code = 3575) [id number] POCT PREG TEST DATE ( test code = 3576) 2026-01-04 Lab Interpretation (test cod e = 54969-5) [facility] okxytqgu2429-06-07 05:06:35Exam: CT Abdomen and Pelvis with contrast, [...] Unr emarkable.Bones: No acute osseous abnormality.[facility] Comp. Metabolic Panel (94209)2024-11-11 03:05:56* Test Item Value Reference Range Interpretation Comme nts NA (test code = 2615468003) 137 mmol/L 135-145 K (test code = 9577022055) 3.2 mmol/L 3.5-5.0 L CL (test code = 6915046140) 107 mmol/L 98-108 CO2 TOTAL (test code = 5650275750) 23 mmol/L 23-31 AGAP (test code = 1958671146) 7 2-16 BUN (test code = 9303447252) 8 mg/dL 7-23 GLUCOSE (test code = 7443243278) 93 mg/dL 70-110 CREATININE (test code = 2160-0) 0.59 mg/dL 0.50-1.04 TOTAL BILI (test code = 8396488740) 0.2 mg/dL 0.1-1.1 CALCIUM (test code = 9057514492) 9 mg/dL 8.6-10.6 T PROTEIN (test code = 9169692382) 6.5 g/dL 6.3-8.2 ALBUMIN (test code = 4058899394) 3.8 g/dL 3.5-5.0 ALK PHOS (test code = 0362817167) 56 U/L 34-122 ALTv (test code = 1742-6) 14 U/L 5-35 AST(SGOT) (test code = 5088511309) 16 U/L 13-40 eGFR (test code = 53496-4) 113.4 mL/min/1.73m2 CKD-EPI eGFR (2020). Assuming creatinine has been stable day-to-day for at least three months, the eGFR indicates Category G1 (>= 90 mL/min/1.73 m2) Lab Interpretation (test code = 62826-5) [facility] 03:05:36* Test Item Value Reference Range Interpretation Comme nts LIPASE (test code = 5575118295) 108 U/L 0-220 Lab Interpretation (test cod e = 64647-9) Normal [facility] with Euzf0461-07-44 02:49:12* Test Item Value Reference Range Interpretation [...] 32.5 g/dL 31.6-35.1 RDW-SD (test code = 41351-1) 52.4 fL 39.0-49.9 H RDW-CV (test code = 788-0) 17.9 % 12.0-15.5 H PLT (test code = 777-3) 337 166-358 MPV (test code = 68914-2) 9.6 fL 9.5-12.9 NRBC/100 WBC (test code = 8734115910) 0 0.0-10.0 NRBC x10^3 (test code = 8142973109) See_Comment [Automated messa ge] The system which generated this result transmitted reference range: 10*3/?L. The reference range was not used to interpret this result as normal/abnormal. GRAN MAT (NEUT) % (test code = 770-8) 49.2 % IMM GRAN % (test code = 2229211434) 0.1 % LYMPH % (test code = 736-9) 40.4 % MONO % (test code = 5905-5) 7 % EOS % (test code = 713-8) 2.8 % BASO % (test code = 706-2) 0.5 % GRAN MAT x10^3(ANC) (test code = 2496448276) 3.86 10*3/uL 1.88-7.09 IMM GRAN x10^3 (test code = 8034385834) 0.00-0.06 LYMPH x10^3 (test code = 731-0) 3.17 10*3/uL 1.32-3.29 MONO x10^3 (test code = 742-7) 0.55 10*3/uL 0.33-0.92 EOS x10^3 (test code = 711-2) 0.22 10*3/uL 0.03-0.39 BASO x10^3 (test code = 704-7) 0.04 10*3/uL 0.01-0.07 Lab Interpretation (test code = 93105-3) [facility]normal [facility] XMWU5592-75-32 02:26:00* Test Item Value Reference Range Interpretation Comme nts POCT PREG (test code = 1605) Negative On board controls acceptable with C Line (test code = 3574) Yes POCT PREG LOT # (test code = 3575) [id number] POCT PREG TEST DATE ( test code = 3576) 01/28/2026 Lab Interpretation (test cod e = 03901-9) [facility] Ffpgyzouvxajldq1986-13-55 20:32:27Left Heart Cath/Coronary Angiography Charity Roca Date of Service: 11/03/2024 ?2:55 PM Attending Physician: Dane Jurado MDFellow: Dr. oJnesReferring Physician: Dr. Sandra ProceduresPerformed:LHC/Coronary Angiogram: CPT 25621WXR of mLAD: CPT 16110KXK of mRCA: CPT 94614 Indication/D iagnosis: ACS ([place]/NSTEMI) Consent: Risks, benefits, alternatives and complications of the procedure discussed with the patient, who understood and agreed to proceed. Aseptic technique: Chlorprep Local Anesthesia: 1% lidocaine without epinephrine Sedation: Moderate Access site: right femoral arteryClosure Method: Angio-Seal Sterile dressing: yes Complications: none Procedures: After patient identification/verification, the patient was thereafter transferred to the rags laborer table. ?The access site was prepped [...] with patient Dane Jurado MD 11/03/2024 2:55 [facility] (for use with Heparin Infusion)2024-11-03 14:39:09* Test Item Value Reference Range Interpretation Comme nts APTT Patient (test code = 3173-2) 43 26-36 H Lab Interpretation (test cod e = 27627-0) [facility]normal [facility] use with Heparin Infusion)2024-11-03 14:39:09* Test Item Value Reference Range Interpretation Comme nts APTT Patient (test code = 3173-2) 43 26-36 H Lab Interpretation (test cod e = 98551-0) Abnormal [place] [address] Lead ROUTINE DJBA6925-79-29 09:59:09* Test Item Value Reference Range Interpretation Comme [facility] Lab Interpretation (test cod e = 87334-0) Abnormal [place] [address] Lead ROUTINE VJVB1665-23-44 09:59:09* Test Item Value Reference Range Interpretation Comme [facility] Lab Interpretation (test cod e = 86559-3) Abnormal [facility]field[facility] Stimulating Tmhueym9890-25-31 00:01:33 * Test Item Value Reference Range Interpretation Comme [facility] TSH (test code = 6158842084) 4.07 0.45-4.70 Biotin has been reported to cause a negative bias, interpret results relative to patient's use of biotin. Lab Interpretation (test code = 90786-8) Normal [facility] Stim[facility] Myglfqf6616-27-16 00:01:33 * Test Item Value Reference Range Interpretation Comme [facility] TSH (test code = 2358323939) 4.07 0.45-4.70 Biotin has been reported to cause a negative bias, interpret results relative to patient's use of biotin. Lab Interpretation (test code = 13458-5) Normal [facility]field[facility]thrombin Time (PT) / RNT0765-40-52 20:11:45 * Test Item Value Reference Range Interpretation Comme [facility] PROTIME PATIENT (test code = 5964-2) 11.3 10.1-12.6 INR (test code = 6301-6) 1 <=4.5 Normal INR <1.1; Warfarin Therapeutic range 2.0 to 3.0 or 2.5 to 3.5, depending upon the indications. Lab Interpretation (test code = 80070-9) Normal [facility]field[facility]PTT2025-04-27 20:11:45* Test Item Value Reference Range Interpretation Comme [facility] APTT Patient (test code = 3173-2) 25 26-36 L DARWIN (test code = DARWIN) The [facility] patient population mean normal value for aPTT is 30 seconds. Lab Interpretation (test code = 98284-1) Abnormal [facility]th[facility] Time (PT) / SEY0688-70-54 20:11:45 * Test Item Value Reference Range Interpretation Comme [facility] PROTIME PATIENT (test code = 5964-2) 11.3 10.1-12.6 INR (test code = 6301-6) 1 <=4.5 Normal INR <1.1; Warfarin Therapeutic range 2.0 to 3.0 or 2.5 to 3.5, depending upon the indications. Lab Interpretation (test code = 22820-5) Normal [facility]PTT2025-04-27 20:11:45* Test Item Value Reference Range Interpretation Comme [facility] APTT Patient (test code = 3173-2) 25 26-36 L DARWIN (test code = DARWIN) The [facility] patient population mean normal value for aPTT is 30 seconds. Lab Interpretation (test code = 47648-4) Abnormal [facility]field[facility]calcitonin2025-04-27 17:14:31* Test Item Value Reference Range Interpretation Comme [facility] Procalcitonin (test code = 3237202902) 0.02 ng/mL <=0.07 DARWIN (test code = [...] lung abscess/empyema. For further information please refer to:[email or web address] Lab Interpretation (test code = 08343-8) Normal [facility]field[facility]calcitonin2025-04-27 17:14:31* Test Item Value Reference Range Interpretation Comme nts Procalcitonin (test code = 6189576211) 0.02 ng/mL <=0.07 DARWIN (test code = [...] lung abscess/empyema. For further information please refer to:[email or web address] Lab Interpretation (test code = 17867-7) Normal [facility]ansthoracic echo (TTE) Ogvvsqc3916-55-91 14:54:14* Test Item Value Reference Range Interpretation Comme nts Height (test code = 6768421635) 62 in Weight (test code = 5682834776) 240 lbs Systolic BP (test code = 7289941128) 156 mmHg Diastolic BP (test code = 7460490512) 99 mmHg Heart Rate (test code = 1214407264) 76 bpm BSA (test code = 5034219481) 2.07 m2 LVOT diameter (test code = 4676099601) 1.86 cm LVOT area (test code = 0651032734) 2.7 cm2 Ao root diam (test code = 2975508891) 3.1 cm Aortic root (test code = 8816527478) 3.1 cm Ao root annulus (test code = 8428021806) 3.1 cm LA size (test code = 6536592593) 3.7 cm LVIDD (test code = 0429995843) 3.8 cm Left Ventricular End Diastolic Volume by Teichholz Method (test code = 4068228) 63 mL IVS (test code = 7430029185) 1.35 cm Interventricular Septum Diastolic Thickness by 2D (test code = 0823763) 1.35 cm LVPWD (test code = 3898620133) 1.36 cm PW (test code = 2912623977) 1.36 cm 0.6-1.1 EF(Teich) (test code = 9722176599) 53 % LVIDS (test code = 4577789224) 2.8 cm Left Ventricular End Systolic Volume by Teichholz Method (test code = 1858091) 29.6 mL FS (test code = 8053723057) 27 % EF - 2D (test code = 95007119) 53 % LAV(MOD-sp4) (test code = 2386642084) 53.8 mL E wave decelartion time (test code = 3878117532) 0.25 s MV stenosis pressure 1/2 time (test code = 6187770429) 73.5 ms MV Peak A Edilson (test code = 8234748041) 73.2 cm/s MV Peak E Edilson (test code = 0493747610) 64.2 cm/s E/A ratio (test code = 6613671662) 0.88 ratio MV Prop V (test code = 0293347032) 62.4 cm/s MV E/e' septal (test code = 6541784054) 12.8 cm/s Tapse (test code = 1096871597) 1.58 cm LVOT stroke volume (test code = 1039662143) 60 cm3 LVOT peak edilson (test code = 3379916315) 110.2 cm/s LVOT mn grad (test code = 8844726327) 2.5 mmHg AV LVOT peak gradient (test code = 7421852564) 4.9 mmHg LVOT peak VTI (test code = 7479110716) 22.1 cm LV V1 mean (test code = 4533719497) 75.6 cm/s Aortic valve mean velocity (test code = 1161835232) 97 cm/s Ao peak edilson (test code = 8696514854) 138 cm/s Ao VTI (test code = 3732082155) 28 cm AV area by cont VTI (test code = 0365891600) 2.1 cm2 AV area peak edilson (test code = 6365922040) 2.2 cm2 Ao max PG (test code = 0958152162) 7.6 mm[Hg] AV peak gradient (test code = 8342790412) 7.6 mmHg AV valve area (test code = 1581189712) 2.14 cm2 AV mean gradient (test code = 2478124692) 4 mmHg Radiology Study observation (narrative) (test code = 63465-5) DARWIN (test code = DARWIN) ?Left?Ventricle: Left [...] Optison ultrasound enhancing agent used. [facility]an[facility] (TTE) Dzzqgeh4278-87-85 14:54:14* Test Item Value Reference Range Interpretation Comme nts Height (test code = 3804561891) 62 in Weight (test code = 0852213988) 240 lbs Systolic BP (test code = 4677567285) 156 mmHg Diastolic BP (test code = 5497870305) 99 mmHg Heart Rate (test code = 3368425108) 76 bpm BSA (test code = 6981638372) 2.07 m2 LVOT diameter (test code = 6259997397) 1.86 cm LVOT area (test code = 2532239357) 2.7 cm2 Ao root diam (test code = 8858085114) 3.1 cm Aortic root (test code = 2451620713) 3.1 cm Ao root annulus (test code = 2680214627) 3.1 cm LA size (test code = 7268849413) 3.7 cm LVIDD (test code = 4606970005) 3.8 cm Left Ventricular End Diastolic Volume by Teichholz Method (test code = 2824945) 63 mL IVS (test code = 4388630321) 1.35 cm Interventricular Septum Diastolic Thickness by 2D (test code = 8995449) 1.35 cm LVPWD (test code = 5127150905) 1.36 cm PW (test code = 4972501975) 1.36 cm 0.6-1.1 EF(Teich) (test code = 3846909923) 53 % LVIDS (test code = 9286527931) 2.8 cm Left Ventricular End Systolic Volume by Teichholz Method (test code = 9399817) 29.6 mL FS (test code = 6986491839) 27 % EF - 2D (test code = 64246801) 53 % LAV(MOD-sp4) (test code = 4367891344) 53.8 mL E wave decelartion time (test code = 1463712887) 0.25 s MV stenosis pressure 1/2 time (test code = 5253089482) 73.5 ms MV Peak A Edilson (test code = 6502556084) 73.2 cm/s MV Peak E Edilson (test code = 4956140934) 64.2 cm/s E/A ratio (test code = 2544221814) 0.88 ratio MV Prop V (test code = 6842549183) 62.4 cm/s MV E/e' septal (test code = 0483562350) 12.8 cm/s Tapse (test code = 8125660098) 1.58 cm LVOT stroke volume (test code = 1645292405) 60 cm3 LVOT peak edilson (test code = 1907102581) 110.2 cm/s LVOT mn grad (test code = 2280947739) 2.5 mmHg AV LVOT peak gradient (test code = 4535948187) 4.9 mmHg LVOT peak VTI (test code = 0155384754) 22.1 cm LV V1 mean (test code = 8212004986) 75.6 cm/s Aortic valve mean velocity (test code = 0661622437) 97 cm/s Ao peak edilson (test code = 1649544617) 138 cm/s Ao VTI (test code = 7497370456) 28 cm AV area by cont VTI (test code = 2509004761) 2.1 cm2 AV area peak edilson (test code = 5182379661) 2.2 cm2 Ao max PG (test code = 1364204433) 7.6 mm[Hg] AV peak gradient (test code = 1974706153) 7.6 mmHg AV valve area (test code = 9402032684) 2.14 cm2 AV mean gradient (test code = 9645972750) 4 mmHg Radiology Study observation (narrative) (test code = 16206-0) DARWIN (test code = DARWIN) ?Left?Ventricle: Left [...] Optison ultrasound enhancing agent used. [facility]Terminal Osk-Tss7468-06-27 14:40:37* Test Item Value Reference Range Interpretation Comme nts NT-proBNP (test code = 45532-4) <=125 Lab Interpretation (test cod e = 59673-4) Normal [facility] Rxc-Seh4468-85-27 14:40:37* Test Item Value Reference Range Interpretation Comme nts NT-proBNP (test code = 93009-7) <=125 Lab Interpretation (test cod e = 46780-1) Normal [facility]field[facility]cosylated Hemoglobin (A1C)2024-11-01 14:39:42* Test Item Value Reference Range Interpretation Comme nts HGB A1C (test code = 4548-4) 5.6 % 4.0-5.7 DARWIN (test code = DARWIN) Reference RangesNormal: <5.7%Prediabetes: 5.7 - 6.4%Diabetes: > 6.5% Lab Interpretation (test code = 22624-3) Normal [facility]cosylated Hemoglobin (A1C)2024-11-01 14:39:42* Test Item Value Reference Range Interpretation Comme nts HGB A1C (test code = 4548-4) 5.6 % 4.0-5.7 DARWIN (test code = DARWIN) Reference RangesNormal: <5.7%Prediabetes: 5.7 - 6.4%Diabetes: > 6.5% Lab Interpretation (test code = 62904-2) Normal [facility] D1783-86-54 14:28:10* Test Item Value Reference Range Interpretation Comme nts TROPONIN I (test code = 1704306701) 0.003 ng/mL <=0.034 DARWIN (test code = [...] of biotin. Lab Interpretation (test code = 76864-0) Normal [facility] W8464-16-98 14:28:10* Test Item Value Reference Range Interpretation Comme nts TROPONIN I (test code = 0121911661) 0.003 ng/mL <=0.034 DARWIN (test code = [...] of biotin. Lab Interpretation (test code = 81123-5) Normal [facility]field[facility]id [facility] (85830)(Total Cholesterol, Triglycerides, HDL)2024-11-01 14:15:31* Test Item Value Reference Range Interpretation Comme nts CHOL (test code = 8852396604) 185 mg/dL 120-200 HDL (test code = 2620851542) 36 mg/dL >=50 L HDLC RATIO (test code = 5219696801) 5.1 <=4.5 H TRIG (test code = 4004318565) 219 mg/dL 30-170 H LDL CHOL (test code = 24597-2) 105 mg/dL <=160 VLDL (test code = 2407112464) 44 mg/dL 5-60 Lab Interpretation (test cod e = 77376-8) Abnormal [facility] (19527)(Total Cholesterol, Triglycerides, HDL)2024-11-01 14:15:31* Test Item Value Reference Range Interpretation Comme nts CHOL (test code = 8917380137) 185 mg/dL 120-200 HDL (test code = 5935668965) 36 mg/dL >=50 L HDLC RATIO (test code = 5729513383) 5.1 <=4.5 H TRIG (test code = 7987367585) 219 mg/dL 30-170 H LDL CHOL (test code = 33150-7) 105 mg/dL <=160 VLDL (test code = 8185023162) 44 mg/dL 5-60 Lab Interpretation (test cod e = 87813-4) Abnormal [facility]field[facility]roponin [id number] 08:18:33* Test Item Value Reference Range Interpretation Comme nts TROPONIN I (test code = 6494167031) 0.002 ng/mL <=0.034 DARWIN (test code = [...] of biotin. Lab Interpretation (test code = 10382-9) Normal [facility] P6102-50-73 08:18:33* Test Item Value Reference Range Interpretation Comme nts TROPONIN I (test code = 2721878582) 0.002 ng/mL <=0.034 DARWIN (test code = DARIWN) Reference (Normal) [...] of biotin. Lab Interpretation (test code = 58173-3) [facility] (NA, K, CL, CO2, GLUCOSE, BUN, CREATININE, CA)2024-11-01 08:06:31* Test Item Value Reference Range Interpretation Comme nts NA (test code = 6237952828) 138 mmol/L 135-145 K (test code = 6109526172) 3.6 mmol/L 3.5-5.0 CL (test code = 9190985463) 105 mmol/L 98-108 CO2 TOTAL (test code = 2575686573) 25 mmol/L 23-31 AGAP (test code = 8422723622) 8 2-16 BUN (test code = 9981345984) 9 mg/dL 7-23 GLUCOSE (test code = 4801005909) 113 mg/dL 70-110 H CREATININE (test code = 2160-0) 0.63 mg/dL 0.50-1.04 CALCIUM (test code = 8331463871) 9.1 mg/dL 8.6-10.6 eGFR (test code = 66629-6) 111.6 mL/min/1.73m2 CKD-EPI eGFR (2020). Assuming creatinine has been stable day-to-day for at least three months, the eGFR indicates Category G1 (>= 90 mL/min/1.73 m2) Lab Interpretation (test code = 19728-3) Abnormal [facility] Metabolic Panel (NA, K, CL, CO2, GLUCOSE, BUN, CREATININE, CA)2024-11-01 08:06:31* Test Item Value Reference Range Interpretation Comme nts NA (test code = 4272207982) 138 mmol/L 135-145 K (test code = 4946190801) 3.6 mmol/L 3.5-5.0 CL (test code = 2009638090) 105 mmol/L 98-108 CO2 TOTAL (test code = 0499196179) 25 mmol/L 23-31 AGAP (test code = 8057708427) 8 2-16 BUN (test code = 3266909620) 9 mg/dL 7-23 GLUCOSE (test code = 0296488009) 113 mg/dL 70-110 H CREATININE (test code = 2160-0) 0.63 mg/dL 0.50-1.04 CALCIUM (test code = 7100098788) 9.1 mg/dL 8.6-10.6 eGFR (test code = 04966-9) 111.6 mL/min/1.73m2 CKD-EPI eGFR (2020). Assuming creatinine has been stable day-to-day for at least three months, the eGFR indicates Category G1 (>= 90 mL/min/1.73 m2) Lab Interpretation (test code = 51047-2) Abnormal [facility] with Aeri6589-67-68 07:51:49* Test Item Value Reference Range Interpretation [...] 32.6 g/dL 31.6-35.1 RDW-SD (test code = 80318-8) 53.2 fL 39.0-49.9 H RDW-CV (test code = 788-0) 18.6 % 12.0-15.5 H PLT (test code = 777-3) 361 166-358 H MPV (test code = 41464-3) 9.5 fL 9.5-12.9 NRBC/100 WBC (test code = 1661792209) 0 0.0-10.0 NRBC x10^3 (test code = 4696513601) See_Comment [Automated messa ge] The system which generated this result transmitted reference range: 10*3/?L. The reference range was not used to interpret this result as normal/abnormal. GRAN MAT (NEUT) % (test code = 770-8) 63.7 % IMM GRAN % (test code = 4022960446) 0.4 % LYMPH % (test code = 736-9) 26.9 % MONO % (test code = 5905-5) 7.1 % EOS % (test code = 713-8) 1.5 % BASO % (test code = 706-2) 0.4 % GRAN MAT x10^3(ANC) (test code = 2390800420) 7.23 10*3/uL 1.88-7.09 H IMM GRAN x10^3 (test code = 5234236359) 0.05 10*3/uL 0.00-0.06 LYMPH x10^3 (test code = 731-0) 3.05 10*3/uL 1.32-3.29 MONO x10^3 (test code = 742-7) 0.8 10*3/uL 0.33-0.92 EOS x10^3 (test code = 711-2) 0.17 10*3/uL 0.03-0.39 BASO x10^3 (test code = 704-7) 0.04 10*3/uL 0.01-0.07 Lab Interpretation (test code = 57718-7) Abnormal [facility] with Lttk6293-79-72 07:51:49* Test Item Value Reference Range Interpretation [...] 32.6 g/dL 31.6-35.1 RDW-SD (test code = 99029-0) 53.2 fL 39.0-49.9 H RDW-CV (test code = 788-0) 18.6 % 12.0-15.5 H PLT (test code = 777-3) 361 166-358 H MPV (test code = 36368-0) 9.5 fL 9.5-12.9 NRBC/100 WBC (test code = 0666778851) 0 0.0-10.0 NRBC x10^3 (test code = 3567663777) See_Comment [Automated messa ge] The system which generated this result transmitted reference range: 10*3/?L. The reference range was not used to interpret this result as normal/abnormal. GRAN MAT (NEUT) % (test code = 770-8) 63.7 % IMM GRAN % (test code = 5992297311) 0.4 % LYMPH % (test code = 736-9) 26.9 % MONO % (test code = 5905-5) 7.1 % EOS % (test code = 713-8) 1.5 % BASO % (test code = 706-2) 0.4 % GRAN MAT x10^3(ANC) (test code = 5490927080) 7.23 10*3/uL 1.88-7.09 H IMM GRAN x10^3 (test code = 6841837179) 0.05 10*3/uL 0.00-0.06 LYMPH x10^3 (test code = 731-0) 3.05 10*3/uL 1.32-3.29 MONO x10^3 (test code = 742-7) 0.8 10*3/uL 0.33-0.92 EOS x10^3 (test code = 711-2) 0.17 10*3/uL 0.03-0.39 BASO x10^3 (test code = 704-7) 0.04 10*3/uL 0.01-0.07 Lab Interpretation (test code = 93129-0) [facility] qn0027-50-83 03:52:49History: chest pain . Exam: XR CHEST 1 VW Date: 10/31/2024 10:00 PM Ordering provider: BOB GARCIA Comparison: 10/12/2024. Findings: Frontal view of the chest is obtained. The cardiac silhouette is normal in size. There are mild left perihilar andbibasilar opacities, which are similar on the prior. No evidence of pleuraleffusion, pneumothorax, or overt CHF.[facility] 1 [id number] 03:52:49History: chest pain . Exam: XR CHEST 1 VW Date: 10/31/2024 10:00 PM Ordering provider: BOB GARCIA Comparison: 10/12/2024. Findings: Frontal view of the chest is obtained. The cardiac silhouette is n ormal in size. There are mild left perihilar andbibasilar opacities, which are similar on the prior. No evidence of pleuraleffusion, pneumothorax, or overt CHF.[facility] Abdom[facility] pelvis w deuhmokq3493-49-77 04:15:32CT ABDOMEN PELVIS W CONTRAST 10/23/2024 10:24 [...] changes of the spine. No concerning softtissue abnormality.[facility]. Metabolic Panel (07626)2024-10-24 02:17:07* Test Item Value Reference Range Interpretation Comme nts NA (test code = 2402921087) 136 mmol/L 135-145 K (test code = 8889239144) 3.7 mmol/L 3.5-5.0 CL (test code = 3410082712) 105 mmol/L 98-108 CO2 TOTAL (test code = 6363440782) 22 mmol/L 23-31 L AGAP (test code = 9553219826) 9 2-16 BUN (test code = 9139213897) 13 mg/dL 7-23 GLUCOSE (test code = 4889360669) 106 mg/dL 70-110 CREATININE (test code = 2160-0) 0.57 mg/dL 0.50-1.04 TOTAL BILI (test code = 9722915463) 0.4 mg/dL 0.1-1.1 CALCIUM (test code = 9234528486) 9.4 mg/dL 8.6-10.6 T PROTEIN (test code = 1826641259) 7.1 g/dL 6.3-8.2 ALBUMIN (test code = 1264543761) 4 g/dL 3.5-5.0 ALK PHOS (test code = 3619455734) 64 U/L 34-122 ALTv (test code = 1742-6) 15 U/L 5-35 AST(SGOT) (test code = 6993500624) 18 U/L 13-40 eGFR (test code = 55206-2) 114.4 mL/min/1.73m2 CKD-EPI eGFR (2020). Assuming creatinine has been stable day-to-day for at least three months, the eGFR indicates Category G1 (>= 90 mL/min/1.73 m2) Lab Interpretation (test code = 36643-8) [facility] Test Item Value Reference Range Interpretation Comme nts LIPASE (test code = 9815677918) 110 U/L 0-220 Lab Interpretation (test cod e = 77750-0) Normal [facility] with [id number] 02:13:50* Test Item Value Reference Range Interpretation [...] 32.9 g/dL 31.6-35.1 RDW-SD (test code = 46410-6) 52.2 fL 39.0-49.9 H RDW-CV (test code = 788-0) 17.9 % 12.0-15.5 H PLT (test code = 777-3) 337 166-358 MPV (test code = 65251-6) 9.6 fL 9.5-12.9 IPF % (test code = [id number]) 1.6 % 1.3-7.7 Platelet count measured by fluorescence method. NRBC/100 WBC (test code = 0880429768) 0 0.0-10.0 NRBC x10^3 (test code = 9518540928) See_Comment [Automated Companion [place] ge] The system which generated this result transmitted reference range: 10*3/?L. The reference range was not used to interpret this result as normal/abnormal. GRAN MAT (NEUT) % (test code = 770-8) 62.2 % IMM GRAN % (test code = 1431544916) 0.3 % LYMPH % (test code = 736-9) 29.3 % MONO % (test code = 5905-5) 6.2 % EOS % (test code = 713-8) 1.6 % BASO % (test code = 706-2) 0.4 % GRAN MAT x10^3(ANC) (test code = 5920737386) 6.92 10*3/uL 1.88-7.09 IMM GRAN x10^3 (test code = 5139457571) 0.03 10*3/uL 0.00-0.06 LYMPH x10^3 (test code = 731-0) 3.26 10*3/uL 1.32-3.29 MONO x10^3 (test code = 742-7) 0.69 10*3/uL 0.33-0.92 EOS x10^3 (test code = 711-2) 0.18 10*3/uL 0.03-0.39 BASO x10^3 (test code = 704-7) 0.05 10*3/uL 0.01-0.07 Lab Interpretation (test code = 65553-9) Abnormal [facility] or plasma thyroid stimulating hormone (TSH) jdtrmimvcdu5834-49-81 10:14:00* Test Item Value Reference Range Interpretation Comme nts Thyroid Stimulating Hormone (TSH) (test code = 3016-3) 2.58 [facility] [id number] 10:14:00* Test Item Value Reference Range Interpretation Comme nts Free Thyroxine (test code = 2278300) 1.18 [facility] CtrSerum or plasma creatine kinase MB (CK-MB) measurement by immunoassay (mass/volume)2024-10-14 10:14:00* Test Item Value Reference Range Interpretation Comme nts Creatine Kinase MB (test cod e = 13292-4) < 1.0 [facility] CtrSerum or plasma cardiac troponin I panel by high sensitivity moxuzb9387-53-41 10:14:00* Test Item Value Reference Range Interpretation Comme nts Troponin T High Sensitivity (test code = 71969-3) 8.2 [facility] CtrSerum or plasma thyroid stimulating hormone (TSH) naiorviwqcr6777-83-90 10:14:00* Test Item Value Reference Range Interpretation Comme nts Thyroid Stimulating Hormone (TSH) (test code = 3016-3) 2.58 [facility] D96606-28-32 10:14:00* Test Item Value Reference Range Interpretation Comme nts Free Thyroxine (test code = 5063573) 1.18 [facility] CtrSerum or plasma creatine kinase MB (CK-MB) measurement by immunoassay (mass/volume)2024-10-14 10:14:00* Test Item Value Reference Range Interpretation Comme nts Creatine Kinase MB (test cod e = 28730-1) < 1.0 [facility] plasma cardiac troponin I panel by high sensitivity hdfnph4009-86-14 10:14:00* Test Item Value Reference Range Interpretation Comme nts Troponin T High Sensitivity (test code = 85226-9) 8.2 [facility] CtrSerum or plasma thyroid stimulating hormone (TSH) hdqxhluohsw9999-21-95 10:14:00* Test Item Value Reference Range Interpretation Comme nts Thyroid Stimulating Hormone (TSH) (test code = 3016-3) 2.58 [facility] [id number] 10:14:00* Test Item Value Reference Range Interpretation Comme nts Free Thyroxine (test code = 3758525) 1.18 [facility] RnuJlvgfsdhhx9591-60-77 10:09:00* Test Item Value Reference Range Interpretation Comme nts Phosphorus Level (test code = ZGN3483) 3.3 [facility] CtrCreatine kinase ahdulzudawg8389-89-86 10:09:00* Test Item Value Reference Range Interpretation Comme nts Creatine Kinase (test code = 907854085) 32 [facility] DclDahwrwibxh7356-95-07 10:09:00* Test Item Value Reference Range Interpretation Comme nts Phosphorus Level (test code = WXE3986) 3.3 [facility] CtrCreatine kinase uskpntkrvgx8772-38-16 10:09:00* Test Item Value Reference Range Interpretation Comme nts Creatine Kinase (test code = 616870299) 32 [facility] LstQpmuitlwae9871-28-94 10:09:00* Test Item Value Reference Range Interpretation Comme nts Phosphorus Level (test code = RFR0412) 3.3 [facility] CtrChloride hrnaqjiabhi6960-69-53 05:44:00* Test Item Value Reference Range Interpretation Comme nts Chloride Level (test code = CFP7171) 105 [facility] CtrSerum or plasma urea nitrogen measurement (mass/volume)2024-10-14 05:44:00* Test Item Value Reference Range Interpretation Comme [facility] Blood Urea Nitrogen (test co de = 3094-0) 8 [facility] CtrOsmolality eip4493-02-77 05:44:00* Test Item Value Reference Range Interpretation Comme nts Serum Osmolality (test code = CMO5415) 274 [facility] CtrCreatinine ooypn6812-63-04 05:44:00* Test Item Value Reference Range Interpretation Comme nts Creatinine (test code = 474627114) 0.43 [facility] CtrEstimated glomerular filtration rate (GFR) eklgnitalnmmp4323-50-03 05:44:00* Test Item Value Reference Range Interpretation Comme nts Glomerular Filtration Rate C alc (test code = 585765790) > 60.00 [facility] CtrBUN/creatinine ykzdq6402-92-07 05:44:00* Test Item Value Reference Range Interpretation Comme nts BUN/Creatinine Ratio (test c ode = 88942482) 18.6 [facility] CtrBody fluid potassium kycbiumxdbh5254-21-13 05:44:00* Test Item Value Reference Range Interpretation Comme nts Potassium Level (test code = 2821-7) 3.8 [facility] HseIT81172-98-88 05:44:00* Test Item Value Reference Range Interpretation Comme nts Carbon Dioxide Level (test c ode = 09342035) 24 [facility] CtrAnion gap aendvimotjv3768-70-68 05:44:00* Test Item Value Reference Range Interpretation Comme nts Anion Gap (test code = 38590284) 12.8 [facility] CtrCalcium pllmb9191-33-20 05:44:00* Test Item Value Reference Range Interpretation Comme nts Calcium Level (test code = 88839266) 8.7 [facility] CtrAbsolute eosinophil xgjwa3343-03-64 05:25:00* Test Item Value Reference Range Interpretation Comme [facility] Eosinophils # (Auto) (test c ode = ZJT6349) 0.26 [facility] CtrRBC jvvzc9327-92-57 05:25:00* Test Item Value Reference Range Interpretation Comme [facility] Red Blood Count (test code = 89716328) 4.12 [facility] GfqZniriwtebo7006-35-65 05:25:00* Test Item Value Reference Range Interpretation Comme [facility] Hematocrit (test code = 90240804) 32.9 [facility] CtrMCV (mean corpuscular volume) determination 2024-10-14 05:25:00* Test Item Value Reference Range Interpretation Comme [facility] Mean Corpuscular Volume (shailesh t code = 63088-1) 79.9 [facility] CtrMean corpuscular hemoglobin (MCH) determination 2024-10-14 05:25:00* Test Item Value Reference Range Interpretation Comme nts Mean Corpuscular Hemoglobin (test code = 69255555) 25.2 [facility] CtrMean corpuscular hemoglobin concentration (MCHC) ikbirrirwmhjf0433-11-02 05:25:00* Test Item Value Reference Range Interpretation Comme nts Mean Corpuscular Hemoglobin Concent (test code = 05657817) 31.6 [facility] CtrRBC distribution width coefficient of variation 2024-10-14 05:25:00* Test Item Value Reference Range Interpretation Comme [facility] Red Cell Distribution Width (test code = 10574263) 18.2 [facility] CtrPlatelet oqeku1066-10-88 05:25:00* Test Item Value Reference Range Interpretation Comme [facility] Platelet Count (test code = 08232075) 299 [facility] CtrMean platelet hkboac7731-00-33 05:25:00* Test Item Value Reference Range Interpretation Comme [facility] Mean Platelet Volume (test c ode = 35808118) 8.9 [facility] CtrNeutrophils seg % zxz8461-19-94 05:25:00* Test Item Value Reference Range Interpretation Comme nts Neutrophils (%) (Auto) (test code = 36211-5) 52.7 [facility] CtrAbsolute immature granulocyte ocqbp8517-63-00 05:25:00* Test Item Value Reference Range Interpretation Comme [facility] Absolute Immature Granulocyt e (auto (test code = 11539-5) 0.03 [facility] CtrBasophil % nfzwyg6860-35-12 05:25:00* Test Item Value Reference Range Interpretation Comme nts Basophils (%) (Auto) (test c ode = 62553-1) 0.4 [facility] CtrBlood band neutrophils count (number/volume) 2024-10-14 05:25:00* Test Item Value Reference Range Interpretation Comme nts Neutrophils # (Auto) (test c ode = 23270-4) 3.96 [facility] CtrAbsolute lymphocyte gvbgj7292-92-98 05:25:00* Test Item Value Reference Range Interpretation Comme nts Lymphocytes # (Auto) (test c ode = 55649-9) 2.63 [facility] CtrAbsolute basophil bzhtx7907-10-90 05:25:00* Test Item Value Reference Range Interpretation Comme [facility] Basophils # (Auto) (test cod e = 45028582) 0.03 [facility] CtrAbsolute NRBC vktpt4343-09-76 05:25:00* Test Item Value Reference Range Interpretation Comme nts Nucleated Red Blood Cells # (test code = 105054635) 0 [facility] KjnFtkyraesf4406-45-70 01:01:00* Test Item Value Reference Range Interpretation Comme nts Magnesium Level (test code = 76448682) 1.8 [facility] CtrTriglycerides maryy7112-92-28 01:01:00* Test Item Value Reference Range Interpretation Comme nts Triglycerides Level (test co de = JZS5719) 193 [facility] VekILT0459-02-92 01:01:00* Test Item Value Reference Range Interpretation Comme nts HDL Cholesterol (test code = 03699345) 41 [facility] CtrLDL cholesterol, nhvwnz9970-17-03 01:01:00* Test Item Value Reference Range Interpretation Comme nts LDL Cholesterol (test code = 587802582) 102 [facility] CtrCholesterol/HDL qurtk6161-69-53 01:01:00* Test Item Value Reference Range Interpretation Comme nts Coronary Heart Disease Risk Ratio (test code = 651598606) 4.170 [facility] JysEbmtespta6400-54-37 01:01:00* Test Item Value Reference Range Interpretation Comme nts Magnesium Level (test code = 75726274) 1.8 [facility] CtrTriglycerides pfhzu2519-12-85 01:01:00* Test Item Value Reference Range Interpretation Comme nts Triglycerides Level (test co de = QHQ0701) 193 [facility] KbwWGO3284-60-40 01:01:00* Test Item Value Reference Range Interpretation Comme nts HDL Cholesterol (test code = 55180904) 41 [facility] CtrLDL cholesterol, pvaqls9422-04-97 01:01:00* Test Item Value Reference Range Interpretation Comme nts LDL Cholesterol (test code = 483123485) 102 [facility] CtrCholesterol/HDL ezxas4796-30-37 01:01:00* Test Item Value Reference Range Interpretation Comme nts Coronary Heart Disease Risk Ratio (test code = 045768297) 4.170 [facility] ApqBzdyqwxsm1680-29-85 01:01:00* Test Item Value Reference Range Interpretation Comme nts Magnesium Level (test code = 72462386) 1.8 [facility] CtrTriglycerides kfkji9667-05-74 01:01:00* Test Item Value Reference Range Interpretation Comme nts Triglycerides Level (test co de = SKQ6497) 193 [facility] HbyMRD7611-79-20 01:01:00* Test Item Value Reference Range Interpretation Comme nts HDL Cholesterol (test code = 60418348) 41 [facility] CtrLDL cholesterol, fhyfew6646-28-00 01:01:00* Test Item Value Reference Range Interpretation Comme nts LDL Cholesterol (test code = 222189544) 102 [facility] CtrCholesterol/HDL wgufz9398-53-84 01:01:00* Test Item Value Reference Range Interpretation Comme nts Coronary Heart Disease Risk Ratio (test code = 449676081) 4.170 [facility] CtrHemoglobin R9k7132-06-67 00:04:00* Test Item Value Reference Range Interpretation Comme nts Hemoglobin A1c (test code = 95696-2) 5.4 [facility] CtrHemoglobin D0n3745-26-10 00:04:00* Test Item Value Reference Range Interpretation Comme nts Hemoglobin A1c (test code = 20827-3) 5.4 [facility] CtrHemoglobin G2k9689-02-61 00:04:00* Test Item Value Reference Range Interpretation Comme nts Hemoglobin A1c (test code = 67888-6) 5.4 [facility] CtrHCG ur UT6485-45-35 20:31:00* Test Item Value Reference Range Interpretation Comme nts Urine HCG, Qualitative (test code = 2106-3) NEGATIVE [facility] CtrNT-proBNP phwvyxopchm4771-72-11 20:02:00* Test Item Value Reference Range Interpretation Comme nts UY-Kpb-G-Type Natriuretic Pe ptide (test code = 150917131) 57 [facility] CtrNT-proBNP inntlznpmku1121-09-96 20:02:00* Test Item Value Reference Range Interpretation Comme nts VC-Lyc-F-Type Natriuretic Pe ptide (test code = 316788876) 57 [facility] NlqH-lebmb8824-30-08 20:01:00* Test Item Value Reference Range Interpretation Comme nts D-Dimer (test code = 887278101) 246 [facility] AyhH-kwton2815-38-08 20:01:00* Test Item Value Reference Range Interpretation Comme nts D-Dimer (test code = 498825158) 246 [facility] JngEugqgj1069-95-03 20:00:00* Test Item Value Reference Range Interpretation Comme nts Lipase (test code = 060127301) 27 [facility] CtrBilirubin kehkq7263-27-32 19:57:00* Test Item Value Reference Range Interpretation Comme nts Total Bilirubin (test code = ZQP9818) < 0.2 [facility] SywQSI1142-87-85 19:57:00* Test Item Value Reference Range Interpretation Comme nts Aspartate Amino Transf (AST/ SGOT) (test code = MSQ2184) 14 [facility] CtrGlobulin jsc4985-37-22 19:57:00* Test Item Value Reference Range Interpretation Comme nts Globulin (test code = 229074735) 2.5 [facility] CtrALT (SGPT) ser/iwjv2488-56-40 19:57:00* Test Item Value Reference Range Interpretation Comme nts Alanine Aminotransferase (AL T/SGPT) (test code = 1742-6) 11 [facility] CtrALP ser/euwj1992-00-36 19:57:00* Test Item Value Reference Range Interpretation Comme nts Total Alkaline Phosphatase ( test code = 6768-6) 65 [facility] CtrProthrombin gkzx6356-26-64 19:53:00* Test Item Value Reference Range Interpretation Comme nts Prothrombin Time (test code = 856432858) 10.5 [facility] CenterWhole blood INR xxgqvmwbjuz9334-01-48 19:53:00* Test Item Value Reference Range Interpretation Comme nts Prothromb Time International Ratio (test code = 50778-7) 0.96 [facility] CtrActivated partial thromboplastin time (aPTT) in platelet poor plasma by coagulation uswcz0886-60-26 19:53:00* Test Item Value Reference Range Interpretation Comme nts Activated Partial Thrombopla st Time (test code = 30767-1) 24.2 [facility] CtrProthrombin whcn5207-19-50 19:53:00* Test Item Value Reference Range Interpretation Comme nts Prothrombin Time (test code = 611676056) 10.5 [facility] CtrWhole blood INR dxdridutfvl7204-59-26 19:53:00* Test Item Value Reference Range Interpretation Comme [facility] Prothromb Time International Ratio (test code = 78069-7) 0.96 [facility] CtrActivated partial thromboplastin time (aPTT) in platelet poor plasma by coagulation dsror2973-19-07 19:53:00* Test Item Value Reference Range Interpretation Comme nts Activated Partial Thrombopla st Time (test code = 40088-3) 24.2 [facility] CtrRBC count ur gcli6833-63-73 19:51:00* Test Item Value Reference Range Interpretation Comme [facility] Urine RBC (test code = 798-9) 0-2 [facility] CtrUrine examination for white blood cells (WBC) 2024-10-13 19:51:00* Test Item Value Reference Range Interpretation Comme [facility] Urine WBC (test code = 916445589) 3-5 [facility] CtrAutomated epithelial cells count in urine sediment (number/area)2024-10-13 19:51:00* Test Item Value Reference Range Interpretation Comme [facility] Urine Epithelial Cells (test code = 46432-5) More than 20/HPF [facility] CtrBacteria detection in urine sediment by light dbxgjxcxnv1764-60-07 19:51:00* Test Item Value Reference Range Interpretation Comme [facility] Urine Bacteria (test code = 45661-2) Occasional [facility] CtrUrine casts detection by automated method 2024-10-13 19:51:00* Test Item Value Reference Range Interpretation Comme nts Urine Casts (test code = 96799-3) 0-2 [facility] CtrColor of Urine by Qlzg7271-48-40 19:46:00* Test Item Value Reference Range Interpretation Comme nts Urine Color (test code = 02466-5) Yellow [facility] CtrAppearance of Xrlsa7552-16-34 19:46:00* Test Item Value Reference Range Interpretation Comme nts Urine Appearance (test code = 5767-9) Cloudy [facility] CtrUrine glucose yvytsjunr6571-51-10 19:46:00* Test Item Value Reference Range Interpretation Comme nts Urine Glucose (UA) (test cod e = 2349-9) Negative [facility] CtrBilirubin fj7288-41-09 19:46:00* Test Item Value Reference Range Interpretation Comme nts Urine Bilirubin (test code = 648163731) Negative [facility] CtrKetones vj6887-10-31 19:46:00* Test Item Value Reference Range Interpretation Comme nts Urine Ketones (test code = 89920880) Negative [facility] CenterSpecific gravity of Urine by Automated test strip 2024-10-13 19:46:00* Test Item Value Reference Range Interpretation Comme nts Urine Specific Archie (test code = 52573-4) 1.025 [facility] CenterUrine blood fbjnkhwvq2960-44-59 19:46:00* Test Item Value Reference Range Interpretation Comme nts Urine Blood (test code = 381025-7) Negative [facility] CtrpH as5443-22-12 19:46:00* Test Item Value Reference Range Interpretation Comme nts Urine pH (test code = 2756-5) 5.500 [facility] CtrProtein jm2819-94-48 19:46:00* Test Item Value Reference Range Interpretation Comme nts Urine Protein (test code = 62172131) Negative [facility] CtrUrobilinogen, urine, cd1174-74-37 19:46:00* Test Item Value Reference Range Interpretation Comme nts Urine Urobilinogen (test cod e = 474098780) 1.0 [facility] CtrUrine nitrate hfedzsynt6158-08-07 19:46:00* Test Item Value Reference Range Interpretation Comme nts Urine Nitrate (test code = 49363-0) Negative [facility] CenterUrine leukocyte esterase jjjjaryaz0685-04-74 19:46:00* Test Item Value Reference Range Interpretation Comme nts Urine Leukocyte Esterase (te st code = 826610-4) Negative [facility]villeoponew [facility] P0975-05-95 07:13:54* Test Item Value Reference Range Interpretation Comme nts TROPONIN I (test code = 3395353603) 0.002 ng/mL <=0.034 DARWIN (test code = [...] of biotin. Lab Interpretation (test code = 32531-2) Normal [facility] Y8940-99-64 05:06:47* Test Item Value Reference Range Interpretation Comme [facility] TROPONIN I (test code = 9092776363) 0.001 ng/mL <=0.034 DARWIN (test code = [...] of biotin. Lab Interpretation (test code = 98339-2) [facility] Eyh-Rpx2137-00-08 05:04:06* Test Item Value Reference Range Interpretation Comme [facility] NT-proBNP (test code = 82203-4) 110 pg/mL <=125 Lab Interpretation (test cod e = 98206-8) Normal [facility]fieldComp. Metabolic Panel (13417)2024-10-13 04:55:24* Test Item Value Reference Range Interpretation Comme nts NA (test code = 5586330885) 135 mmol/L 135-145 K (test code = 8297585596) 3.5 mmol/L 3.5-5.0 CL (test code = 9660104816) 104 mmol/L 98-108 CO2 TOTAL (test code = 6960073679) 25 mmol/L 23-31 AGAP (test code = 7945562953) 6 2-16 BUN (test code = 2401276308) 12 mg/dL 7-23 GLUCOSE (test code = 1717658153) 83 mg/dL 70-110 CREATININE (test code = 2160-0) 0.55 mg/dL 0.50-1.04 TOTAL BILI (test code = 7122516381) 0.2 mg/dL 0.1-1.1 CALCIUM (test code = 3120193165) 9.2 mg/dL 8.6-10.6 T PROTEIN (test code = 3166693810) 6.3 g/dL 6.3-8.2 ALBUMIN (test code = 0960499806) 3.5 g/dL 3.5-5.0 ALK PHOS (test code = 5047817916) 58 U/L 34-122 ALTv (test code = 1742-6) 12 U/L 5-35 AST(SGOT) (test code = 5497999643) 13 U/L 13-40 eGFR (test code = 02381-8) 115.4 mL/min/1.73m2 CKD-EPI eGFR (20 21). Assuming creatinine has been stable day-to-day for at least three months, the eGFR indicates Category G1 (>= 90 mL/min/1.73 m2) [facility]field[facility]ase2025-04-08 04:55:03* Test Item Value Reference Range Interpretation Comme nts LIPASE (test code = 0414879897) 80 U/L 0-220 Lab Interpretation (test cod e = 07305-7) Normal [facility]fieldCb with Hhka8530-05-29 04:41:23* Test Item Value Reference Range Interpretation [...] 32.1 g/dL 31.6-35.1 RDW-SD (test code = 41307-6) 51.6 fL 39.0-49.9 H RDW-CV (test code = 788-0) 17.9 % 12.0-15.5 H PLT (test code = 777-3) 328 166-358 MPV (test code = 53489-3) 8.9 fL 9.5-12.9 L NRBC/100 WBC (test code = 8120274316) 0.0 0.0-10.0 NRBC x10^3 (test code = 8984807683) See_Comment [Automated messa ge] The system which generated this result transmitted reference range: 10*3/?L. The reference range was not used to interpret this result as normal/abnormal. GRAN MAT (NEUT) % (test code = 770-8) 60.6 % IMM GRAN % (test code = 5340494957) 0.60 % LYMPH % (test code = 736-9) 31.0 % MONO % (test code = 5905-5) 5.9 % EOS % (test code = 713-8) 1.5 % BASO % (test code = 706-2) 0.4 % GRAN MAT x10^3(ANC) (test code = 4225630472) 6.12 10*3/uL 1.88-7.09 IMM GRAN x10^3 (test code = 7487840955) 0.06 10*3/uL 0.00-0.06 LYMPH x10^3 (test code = 731-0) 3.13 10*3/uL 1.32-3.29 MONO x10^3 (test code = 742-7) 0.60 10*3/uL 0.33-0.92 EOS x10^3 (test code = 711-2) 0.15 10*3/uL 0.03-0.39 BASO x10^3 (test code = 704-7) 0.04 10*3/uL 0.01-0.07 Lab Interpretation (test code = 77192-0) [facility]normal [facility]fieldPOCT OXTS6344-76-72 03:46:00* Test Item Value Reference Range Interpretation Comme nts POCT PREG (test code = 1605) Negative On board controls acceptable with C Line (test code = 3574) Yes POCT PREG LOT # (test code = 3575) [id number] POCT PREG TEST DATE ( test code = 3576) 11/30/2025 Lab Interpretation (test cod e = 80767-8) Normal [facility] Chest pulmonary sqmlqqtoq5673-63-37 06:33:58Exam: CT Angiography Chest with Contrast, 07/18/2024 [...] the spleen. Osseous: No acute osseous finding. [facility] Abdomen pelvis w oocmhpxt5679-95-55 06:50:04Exam: CT Abdomen and Pelvis With Contrast, [...] nopelvic adenopathy. Osseous/Soft Tissues: Unremarkable. [facility]PO[facility] JZZQ8708-17-85 05:33:00* Test Item Value Reference Range Interpretation Comme nts POCT PREG (test code = 1605) Negative On board controls acceptable with C Line (test code = 3574) Yes POCT PREG LOT # (test code = 3575) [id number] POCT PREG TEST DATE ( test code = 3576) 2025-06-22 Lab Interpretation (test cod e = 02828-1) [facility] Xynal8124-93-30 04:06:42* Test Item Value Reference Range Interpretation Comme nts NA (test code = 5704853986) 139 mmol/L 135-145 K (test code = 0297105050) 3.5 mmol/L 3.5-5.0 CL (test code = 2775220795) 105 mmol/L 98-108 CO2 TOTAL (test code = 0368934827) 26 mmol/L 23-31 AGAP (test code = 2569197989) 8 2-16 BUN (test code = 3726327084) 5 mg/dL 7-23 L GLUCOSE (test code = 3992864390) 101 mg/dL 70-110 CREATININE (test code = 2160-0) 0.58 mg/dL 0.50-1.04 TOTAL BILI (test code = 6948380493) 0.1-1.1 L CALCIUM (test code = 0564427275) 9.3 mg/dL 8.6-10.6 T PROTEIN (test code = 3138569216) 6.8 g/dL 6.3-8.2 ALBUMIN (test code = 7654694141) 3.9 g/dL 3.5-5.0 ALK PHOS (test code = 7280742180) 74 U/L 34-122 ALTv (test code = 1742-6) 17 U/L 5-35 AST(SGOT) (test code = 3720782983) 28 U/L 13-40 eGFR (test code = 87851-2) 113.9 mL/min/1.73m2 CKD-EPI eGFR (2020). Assuming creatinine has been stable day-to-day for at least three months, the eGFR indicates Category G1 (>= 90 mL/min/1.73 m2) Lab Interpretation (test code = 07748-0) [facility], Gedrt4042-38-93 04:01:05* Test Item Value Reference Range Interpretation Comme nts LIPASE (test code = 1673036797) 80 U/L 0-220 Lab Interpretation (test cod e = 48188-8) [facility] with Sqfvszhcxdua7856-76-96 03:46:26* Test Item Value Reference Range Interpretation [...] 33.2 g/dL 31.6-35.1 RDW-SD (test code = 11447-8) 42.5 fL 39.0-49.9 RDW-CV (test code = 788-0) 14.6 % 12.0-15.5 PLT (test code = 777-3) 327 166-358 MPV (test code = 35013-2) 9.3 fL 9.5-12.9 L NRBC/100 WBC (test code = 9573581157) 0.0 0.0-10.0 NRBC x10^3 (test code = 6288888832) See_Comment [Automated messa ge] The system which generated this result transmitted reference range: 10*3/?L. The reference range was not used to interpret this result as normal/abnormal. GRAN MAT (NEUT) % (test code = 770-8) 65.7 % IMM GRAN % (test code = 8945246259) 0.50 % LYMPH % (test code = 736-9) 26.4 % MONO % (test code = 5905-5) 5.6 % EOS % (test code = 713-8) 1.4 % BASO % (test code = 706-2) 0.4 % GRAN MAT x10^3(ANC) (test code = 5093127583) 8.21 10*3/uL 1.88-7.09 H IMM GRAN x10^3 (test code = 3410623397) 0.06 10*3/uL 0.00-0.06 LYMPH x10^3 (test code = 731-0) 3.30 10*3/uL 1.32-3.29 H MONO x10^3 (test code = 742-7) 0.70 10*3/uL 0.33-0.92 EOS x10^3 (test code = 711-2) 0.17 10*3/uL 0.03-0.39 BASO x10^3 (test code = 704-7) 0.05 10*3/uL 0.01-0.07 Lab Interpretation (test code = 36174-3) [facility] Ab[facility] pelvis w tqfbryew4042-86-22 05:39:04CT ABDOMEN PELVIS W CONTRAST HISTORY: 44 [...] TISSUES: No suspicious lytic or sclerotic bony lesions.[facility]. Metabolic Panel (77178)2024-06-15 05:12:33* Test Item Value Reference Range Interpretation Comme nts NA (test code = 4016824256) 139 mmol/L 135-145 K (test code = 4554834451) 3.7 mmol/L 3.5-5.0 CL (test code = 0563132714) 109 mmol/L 98-108 H CO2 TOTAL (test code = 0316285302) 23 mmol/L 23-31 AGAP (test code = 9008047422) 7 2-16 BUN (test code = 9541656564) 6 mg/dL 7-23 L GLUCOSE (test code = 4046629509) 101 mg/dL 70-110 CREATININE (test code = 2160-0) 0.67 mg/dL 0.50-1.04 TOTAL BILI (test code = 6358948933) 0.1-1.1 L CALCIUM (test code = 5710108246) 9.4 mg/dL 8.6-10.6 T PROTEIN (test code = 8976377409) 7.0 g/dL 6.3-8.2 ALBUMIN (test code = 0404824903) 4.0 g/dL 3.5-5.0 ALK PHOS (test code = 2521804326) 87 U/L 34-122 ALTv (test code = 1742-6) 28 U/L 5-35 AST(SGOT) (test code = 8063434532) 24 U/L 13-40 eGFR (test code = 00792-8) 110.0 mL/min/1.73m2 CKD-EPI eGFR (2020). Assuming creatinine has been stable day-to-day for at least three months, the eGFR indicates Category G1 (>= 90 mL/min/1.73 m2) Lab Interpretation (test code = 82321-1) [facility]normal [facility]field[facility]roponin Y1235-25-29 05:03:33* Test Item Value Reference Range Interpretation Comme nts TROPONIN I (test code = 4294208701) 0.000 ng/mL <=0.034 DARWIN (test code = [...] of biotin. Lab Interpretation (test code = 63362-5) Normal [facility]fieldLipase2024-12-09 04:51:35* Test Item Value Reference Range Interpretation Comme nts LIPASE (test code = 9909965089) 94 U/L 0-220 Lab Interpretation (test cod e = 68935-1) Normal [facility]fieldPregnancy Test, Aexea6041-00-18 04:51:30* Test Item Value Reference Range Interpretation Comme nts PREG SERUM (test code = 1005783677) Negative DARWIN (test code = DARWIN) Less than 10 IU/L. ?If low titer or ectopic is suspected, resubmit specimen in 48-72 hours. [facility] with Jeaf3549-73-72 04:36:57* Test Item Value Reference Range Interpretation [...] 32.9 g/dL 31.6-35.1 RDW-SD (test code = 30708-7) 44.3 fL 39.0-49.9 RDW-CV (test code = 788-0) 15.0 % 12.0-15.5 PLT (test code = 777-3) 347 166-358 MPV (test code = 02638-4) 9.4 fL 9.5-12.9 L NRBC/100 WBC (test code = 4581760624) 0.0 0.0-10.0 NRBC x10^3 (test code = 2445951670) See_Comment [Automated messa ge] The system which generated this result transmitted reference range: 10*3/?L. The reference range was not used to interpret this result as normal/abnormal. GRAN MAT (NEUT) % (test code = 770-8) 60.2 % IMM GRAN % (test code = 7041122113) 0.40 % LYMPH % (test code = 736-9) 31.3 % MONO % (test code = 5905-5) 5.8 % EOS % (test code = 713-8) 1.8 % BASO % (test code = 706-2) 0.5 % GRAN MAT x10^3(ANC) (test code = 6414129998) 6.36 10*3/uL 1.88-7.09 IMM GRAN x10^3 (test code = 7646719443) 0.04 10*3/uL 0.00-0.06 LYMPH x10^3 (test code = 731-0) 3.30 10*3/uL 1.32-3.29 H MONO x10^3 (test code = 742-7) 0.61 10*3/uL 0.33-0.92 EOS x10^3 (test code = 711-2) 0.19 10*3/uL 0.03-0.39 BASO x10^3 (test code = 704-7) 0.05 10*3/uL 0.01-0.07 Lab Interpretation (test code = 40894-0) [facility]normal [facility]field[facility]roponin M0020-37-29 07:55:17* Test Item Value Reference Range Interpretation Comme nts TROPONIN I (test code = 0591663019) 0.000 ng/mL <=0.034 DARWIN (test code = [...] of biotin. Lab Interpretation (test code = 46867-0) [facility] 1 [id number] 06:16:28Exam: Chest (1 View), 06/06/2024 11:30 PM. Ordering Physician: BOB GARCIA. History: Chest pain. Technique: AP view of the chest. Technical Quality: Adequate. Comparison: Chest radiograph 05/17/2024. Findings: Normal cardiac silhouette size. ?No airspace consolidation, pleuraleffusion, or pneumothorax. No acute osseous abnormality.[facility]PO[facility] SCGL3890-56-83 05:19:00* Test Item Value Reference Range Interpretation Comme nts POCT PREG (test code = 1605) Negative On board controls acceptable with C Line (test code = 3574) Yes POCT PREG LOT # (test code = 3575) [id number] POCT PREG TEST DATE ( test code = 3576) 04/11/2025 Lab Interpretation (test cod e = 87049-0) Normal [facility]field[facility]roponin C1061-78-74 05:00:24* Test Item Value Reference Range Interpretation Comme nts TROPONIN I (test code = 2652535038) 0.000 ng/mL <=0.034 DARWIN (test code = [...] of biotin. Lab Interpretation (test code = 44896-0) Normal [facility]. Metabolic Panel (07318)2024-06-07 05:00:19* Test Item Value Reference Range Interpretation Comme nts NA (test code = 9925782433) 139 mmol/L 135-145 K (test code = 2731023327) 3.6 mmol/L 3.5-5.0 CL (test code = 1769699208) 108 mmol/L 98-108 CO2 TOTAL (test code = 9553744430) 22 mmol/L 23-31 L AGAP (test code = 7898404376) 9 2-16 BUN (test code = 1431266670) 10 mg/dL 7-23 GLUCOSE (test code = 5475741562) 144 mg/dL 70-110 H CREATININE (test code = 2160-0) 0.62 mg/dL 0.50-1.04 TOTAL BILI (test code = 8963108824) 0.1-1.1 L CALCIUM (test code = 5006745036) 9.2 mg/dL 8.6-10.6 T PROTEIN (test code = 6518029732) 6.5 g/dL 6.3-8.2 ALBUMIN (test code = 5378572408) 3.7 g/dL 3.5-5.0 ALK PHOS (test code = 8490987968) 69 U/L 34-122 ALTv (test code = 1742-6) 14 U/L 5-35 AST(SGOT) (test code = 8241101697) 15 U/L 13-40 eGFR (test code = 09917-8) 112.1 mL/min/1.73m2 CKD-EPI eGFR (2020). Assuming creatinine has been stable day-to-day for at least three months, the eGFR indicates Category G1 (>= 90 mL/min/1.73 m2) Lab Interpretation (test code = 60242-5) Abnormal [facility] with Qcuv9183-22-23 04:38:25* Test Item Value Reference Range Interpretation [...] 32.8 g/dL 31.6-35.1 RDW-SD (test code = 19292-6) 44.1 fL 39.0-49.9 RDW-CV (test code = 788-0) 14.9 % 12.0-15.5 PLT (test code = 777-3) 358 166-358 MPV (test code = 51161-7) 9.4 fL 9.5-12.9 L NRBC/100 WBC (test code = 1319084013) 0.0 0.0-10.0 NRBC x10^3 (test code = 8179236769) See_Comment [Automated messa ge] The system which generated this result transmitted reference range: 10*3/?L. The reference range was not used to interpret this result as normal/abnormal. GRAN MAT (NEUT) % (test code = 770-8) 58.2 % IMM GRAN % (test code = 0145811531) 0.40 % LYMPH % (test code = 736-9) 34.1 % MONO % (test code = 5905-5) 4.7 % EOS % (test code = 713-8) 2.3 % BASO % (test code = 706-2) 0.3 % GRAN MAT x10^3(ANC) (test code = 6492684103) 5.33 10*3/uL 1.88-7.09 IMM GRAN x10^3 (test code = 8595292189) 0.04 10*3/uL 0.00-0.06 LYMPH x10^3 (test code = 731-0) 3.12 10*3/uL 1.32-3.29 MONO x10^3 (test code = 742-7) 0.43 10*3/uL 0.33-0.92 EOS x10^3 (test code = 711-2) 0.21 10*3/uL 0.03-0.39 BASO x10^3 (test code = 704-7) 0.03 10*3/uL 0.01-0.07 Lab Interpretation (test code = 49695-0) [facility] WO YMLGTAYY5896-09-30 18:53:41EXAM: CT HEAD WO CONTRAST HISTORY: 44 [...] and central skull base are unremarkable.[facility] FOREARM 2 VW [id number] 04:08:39EXAM: XR HAND 3+ VW RIGHT, XR [...] body. Mild diffuse soft tissue swelling.[facility] HAND 3+ VW DSETN1497-00-09 04:08:39EXAM: XR HAND 3+ VW RIGHT, XR [...] body. Mild diffuse soft tissue swelling.[facility] ELBOW <3 VW APDEK5679-16-43 04:08:39EXAM: XR HAND 3+ VW RIGHT, XR [...] radiopaqueforeign body. Mild diffuse soft tissue swelling. [facility] MAXILLOFACIAL/MANDIBLE WO CONTRAST 2024-05-18 03:36:27ORDERING PHYSICIAN:TAMMY FRANKLIN CLINICAL INFORMATION: ? Facial trauma, blunt [...] no evidence of retrobulbar hematomas or retroconal fatstranding.[facility] CERVICAL SPINE WO CONTRAST 2024-05-18 03:28:19ORDERING PHYSICIAN: ? TAMMY ?AUFDERHEIDE HISTORY: Neck trauma, dangerous injury mechanism [...] tissues arenormal. The visualized lung apices are clear.[facility]PO[facility] Wajl5273-84-62 02:00:00* Test Item Value Reference Range Interpretation Comme nts POCT PREG (test code = 1605) Negative On board controls acceptable with C Line (test code = 3574) Yes Lab Interpretation (test cod e = 17320-5) Normal [facility]. Metabolic Panel (98481)2024-05-08 01:19:56* Test Item Value Reference Range Interpretation Comme nts NA (test code = 1051116761) 139 mmol/L 135-145 K (test code = 7697656196) 3.3 mmol/L 3.5-5.0 L CL (test code = 0383120638) 107 mmol/L 98-108 CO2 TOTAL (test code = 5301272294) 22 mmol/L 23-31 L AGAP (test code = 2105708252) 10 2-16 BUN (test code = 1800717085) 5 mg/dL 7-23 L GLUCOSE (test code = 1364774506) 131 mg/dL 70-110 H CREATININE (test code = 2160-0) 0.72 mg/dL 0.50-1.04 TOTAL BILI (test code = 8254066800) 0.1-1.1 L CALCIUM (test code = 0032641436) 9.3 mg/dL 8.6-10.6 T PROTEIN (test code = 7953066001) 7.0 g/dL 6.3-8.2 ALBUMIN (test code = 2166957592) 4.1 g/dL 3.5-5.0 ALK PHOS (test code = 3669577542) 76 U/L 34-122 ALTv (test code = 1742-6) 27 U/L 5-35 AST(SGOT) (test code = 9948932446) 30 U/L 13-40 eGFR (test code = 83622-7) 105.2 mL/min/1.73m2 CKD-EPI eGFR (2020). Assuming creatinine has been stable day-to-day for at least three months, the eGFR indicates Category G1 (>= 90 mL/min/1.73 m2) Lab Interpretation (test code = 06399-8) [facility]normal [facility]field[facility]roponin [id number] 01:18:54* Test Item Value Reference Range Interpretation Comme nts TROPONIN I (test code = 0566735352) 0.003 ng/mL <=0.034 DARWIN (test code = [...] of biotin. Lab Interpretation (test code = 25638-6) Normal [facility]fieldMagnesium2024-11-01 01:07:50* Test Item Value Reference Range Interpretation Comme nts MAGNESIUM (test code = 0592434207) 1.7 mg/dL 1.7-2.4 Lab Interpretation (test cod e = 94555-7) Normal [facility]fieldLipase2024-11-01 01:07:30* Test Item Value Reference Range Interpretation Comme nts LIPASE (test code = 0101187739) 97 U/L 0-220 Lab Interpretation (test cod e = 68123-3) Normal [facility]field[facility]b with Kgpi8130-36-13 00:51:30* Test Item Value Reference Range Interpretation [...] 33.2 g/dL 31.6-35.1 RDW-SD (test code = 98329-2) 43.6 fL 39.0-49.9 RDW-CV (test code = 788-0) 14.8 % 12.0-15.5 PLT (test code = 777-3) 382 166-358 H MPV (test code = 86831-6) 9.7 fL 9.5-12.9 NRBC/100 WBC (test code = 2023900163) 0.0 0.0-10.0 NRBC x10^3 (test code = 8379936014) See_Comment [Automated messa ge] The system which generated this result transmitted reference range: 10*3/?L. The reference range was not used to interpret this result as normal/abnormal. GRAN MAT (NEUT) % (test code = 770-8) 63.3 % IMM GRAN % (test code = 0019749868) 0.40 % LYMPH % (test code = 736-9) 27.5 % MONO % (test code = 5905-5) 5.4 % EOS % (test code = 713-8) 2.9 % BASO % (test code = 706-2) 0.5 % GRAN MAT x10^3(ANC) (test code = 8225474653) 7.25 10*3/uL 1.88-7.09 H IMM GRAN x10^3 (test code = 2915255934) 0.05 10*3/uL 0.00-0.06 LYMPH x10^3 (test code = 731-0) 3.15 10*3/uL 1.32-3.29 MONO x10^3 (test code = 742-7) 0.62 10*3/uL 0.33-0.92 EOS x10^3 (test code = 711-2) 0.33 10*3/uL 0.03-0.39 BASO x10^3 (test code = 704-7) 0.06 10*3/uL 0.01-0.07 Lab Interpretation (test code = 10026-6) Abnormal [facility] or plasma cardiac troponin I panel by high sensitivity zxnphw6075-74-78 17:16:00* Test Item Value Reference Range Interpretation Comme nts Troponin T High Sensitivity (test code = 82448-7) < 6.0 [facility] CtrSerum or plasma glucose measurement (mass/volume) 2024-04-10 17:14:00* Test Item Value Reference Range Interpretation Comme nts Random Glucose (test code = 2345-7) 109 [facility] CtrSerum or plasma urea nitrogen measurement (mass/volume)2024-04-10 17:14:00* Test Item Value Reference Range Interpretation Comme nts Blood Urea Nitrogen (test co de = 3094-0) 4 [facility] PlvOAS2995-77-96 17:14:00* Test Item Value Reference Range Interpretation Comme nts Aspartate Amino Transf (AST/ SGOT) (test code = SSY2168) 14 [facility] CtrBilirubin xuxdn6787-30-28 17:14:00* Test Item Value Reference Range Interpretation Comme nts Total Bilirubin (test code = PGC6642) < 0.2 [facility] CtrEstimated glomerular filtration rate (GFR) lqvbavlncjttl4550-95-08 17:14:00* Test Item Value Reference Range Interpretation Comme nts Glomerular Filtration Rate C alc (test code = 873135624) > 60.00 [facility] CtrBUN/creatinine zghlt1732-76-13 17:14:00* Test Item Value Reference Range Interpretation Comme nts BUN/Creatinine Ratio (test c ode = 20687997) 7.3 [facility] PjoSE88935-82-08 17:14:00* Test Item Value Reference Range Interpretation Comme nts Carbon Dioxide Level (test c ode = 36520352) 22 [facility] CtrAnion gap tkgudnjyxfa2104-76-69 17:14:00* Test Item Value Reference Range Interpretation Comme nts Anion Gap (test code = 59604050) 16.6 [facility] CtrCalcium yqykm4079-43-68 17:14:00* Test Item Value Reference Range Interpretation Comme nts Calcium Level (test code = 18587388) 9.9 [facility] CtrGlobulin epl2666-82-42 17:14:00* Test Item Value Reference Range Interpretation Comme nts Globulin (test code = 518446808) 3.1 [facility] CtrALT (SGPT) ser/udeh7673-89-47 17:14:00* Test Item Value Reference Range Interpretation Comme nts Alanine Aminotransferase (AL T/SGPT) (test code = 1742-6) 10 [facility] CtrAmylase qkspn2247-40-62 17:14:00* Test Item Value Reference Range Interpretation Comme nts Amylase Level (test code = 1798-8) 48 [facility] UvvNxvgxy6617-28-15 17:14:00* Test Item Value Reference Range Interpretation Comme nts Lipase (test code = 06584816) 24 [facility] CtrALP ser/enfv6011-42-46 17:14:00* Test Item Value Reference Range Interpretation Comme nts Total Alkaline Phosphatase ( test code = 6768-6) 92 [facility] CtrUrine hydrocodone measurement (mass/volume) 2024-04-10 17:13:00* Test Item Value Reference Range Interpretation Comme nts Hydrocodone Level (test code = 3681-4) NEGATIVE [facility] f[facility] measurement by confirmatory method (mass/volume)2024-04-10 17:13:00* Test Item Value Reference Range Interpretation Comme nts Urine Fentanyl Screen (test code = 95696-1) NEGATIVE [facility] CtrPhencyclidine (PCP) im4760-61-13 17:13:00* Test Item Value Reference Range Interpretation Comme nts Urine Phencyclidine (PCP) Le edilson (test code = 653682282) NEGATIVE [facility] CtrPropoxyphene [Mass/volume] in Csygb0192-92-15 17:13:00* Test Item Value Reference Range Interpretation Comme nts Propoxyphene Level (test cod e = 3545-1) NEGATIVE [facility] CtroxyCODONE [Mass/volume] in Rxrqh3960-23-91 17:13:00* Test Item Value Reference Range Interpretation Comme nts Oxycodone Level (test code = 08950-5) NEGATIVE [facility] CtrAmphetamine ur ynujrv2515-06-22 17:13:00* Test Item Value Reference Range Interpretation Comme nts Urine Amphetamines Screen (t est code = 09294-3) NEGATIVE [facility] MudBhvwvxwqx7865-20-36 17:13:00* Test Item Value Reference Range Interpretation Comme nts Methadone Level (test code = RAD1386) NEGATIVE [facility] CtrBenzodiazepines screen fq6827-00-54 17:13:00* Test Item Value Reference Range Interpretation Comme [facility] Urine Benzodiazepines Screen (test code = 721918596) POSITIVE [facility] CtrCannabinoids (8-kujltbp-EOG) aqsoecotltn7496-93-03 17:13:00* Test Item Value Reference Range Interpretation Comme nts Urine Cannabinoids (test cod e = 967086774) NEGATIVE [facility] CtrCocaine metabolite rrdhrb9671-11-89 17:13:00* Test Item Value Reference Range Interpretation Comme nts Urine Cocaine Metabolite (te st code = 435316506) NEGATIVE [facility] CtrOpiates uykzo5179-20-38 17:13:00* Test Item Value Reference Range Interpretation Comme [facility] Urine Opiates Screen (test c ode = 573251543) NEGATIVE [facility] CtrUrine leukocyte esterase nrsibernl3209-47-78 17:10:00* Test Item Value Reference Range Interpretation Comme nts Urine Leukocyte Esterase (te st code = 234153973) 3+ [facility] CtrRBC count ur husd6533-88-35 17:08:00* Test Item Value Reference Range Interpretation Comme nts Urine RBC (test code = 798-9) 0-2 [facility] CtrUrine examination for white blood cells (WBC) 2024-04-10 17:08:00* Test Item Value Reference Range Interpretation Comme nts Urine WBC (test code = 115694683) >100 [facility] CtrAutomated epithelial cells count in urine sediment (number/area)2024-04-10 17:08:00* Test Item Value Reference Range Interpretation Comme nts Urine Epithelial Cells (test code = 16199-2) 6-10 [facility] CtrBacteria detection in urine sediment by light okpjgvjmza8373-96-70 17:08:00* Test Item Value Reference Range Interpretation Comme nts Urine Bacteria (test code = 83191-2) Few [facility] CtrUrine casts detection by automated method 2024-04-10 17:08:00* Test Item Value Reference Range Interpretation Comme nts Urine Casts (test code = 67265-1) 0-2 [facility] CtrHCG ur TO8427-91-16 17:03:00* Test Item Value Reference Range Interpretation Comme nts Urine HCG, Qualitative (test code = 2106-3) NEGATIVE [facility] CtrColor of Urine by Wrfr8007-40-85 17:03:00* Test Item Value Reference Range Interpretation Comme nts Urine Color (test code = 04701-7) Yellow [facility] CtrAppearance of Owksn7888-14-02 17:03:00* Test Item Value Reference Range Interpretation Comme nts Urine Appearance (test code = 5767-9) Cloudy [facility] CenterUrine glucose arwtutaqy5497-40-87 17:03:00* Test Item Value Reference Range Interpretation Comme nts Urine Glucose (UA) (test cod e = 2349-9) Negative [facility] CtrBilirubin xu3499-88-47 17:03:00* Test Item Value Reference Range Interpretation Comme nts Urine Bilirubin (test code = 458614923) Negative [facility] CtrKetones nh3095-97-50 17:03:00* Test Item Value Reference Range Interpretation Comme nts Urine Ketones (test code = 59249462) Negative [facility] CtrSpecific gravity of Urine by Automated test strip 2024-04-10 17:03:00* Test Item Value Reference Range Interpretation Comme nts Urine Specific Archie (test code = 32144-0) 1.006 [facility] CenterU[facility] blood elkyjlpje5831-02-49 17:03:00* Test Item Value Reference Range Interpretation Comme nts Urine Blood (test code = 36297-2) Nonhemolyzed Trace [facility] CtrpH yp8167-56-49 17:03:00* Test Item Value Reference Range Interpretation Comme nts Urine pH (test code = 2756-5) 6.000 [facility] CtrProtein ww1849-47-95 17:03:00* Test Item Value Reference Range Interpretation Comme nts Urine Protein (test code = 19667329) Negative [facility] CtrUrobilinogen, urine, bt9961-05-80 17:03:00* Test Item Value Reference Range Interpretation Comme [facility] Urine Urobilinogen (test cod e = 969783258) 0.2 [facility] CtrUrine nitrate ptlxflhaw8954-34-66 17:03:00* Test Item Value Reference Range Interpretation Comme nts Urine Nitrate (test code = 21971-6) Negative [facility] CtrAbsolute eosinophil wftpe2890-33-27 17:00:00* Test Item Value Reference Range Interpretation Comme nts Eosinophils # (Auto) (test c ode = FMH5944) 0.25 [facility] CtrRBC tszsf5820-92-02 17:00:00* Test Item Value Reference Range Interpretation Comme nts Red Blood Count (test code = 87876186) 5.17 [facility] MucFsxloubgxq0264-86-78 17:00:00* Test Item Value Reference Range Interpretation Comme nts Hematocrit (test code = 99484005) 41.9 [facility] CtrMCV (mean corpuscular volume) determination 2024-04-10 17:00:00* Test Item Value Reference Range Interpretation Comme nts Mean Corpuscular Volume (shailesh t code = 51926-5) 81.0 [facility] CtrMean corpuscular hemoglobin (MCH) determination 2024-04-10 17:00:00* Test Item Value Reference Range Interpretation Comme nts Mean Corpuscular Hemoglobin (test code = 59318072) 26.1 [facility] CtrMean corpuscular hemoglobin concentration (MCHC) [id number] 17:00:00* Test Item Value Reference Range Interpretation Comme [facility] Mean Corpuscular Hemoglobin Concent (test code = 79661326) 32.2 [facility] CtrRBC distribution width coefficient of variation 2024-04-10 17:00:00* Test Item Value Reference Range Interpretation Comme [facility] Red Cell Distribution Width (test code = 07834484) 15.2 [facility] CtrPlatelet [id number] 17:00:00* Test Item Value Reference Range Interpretation Comme [facility] Platelet Count (test code = 85662032) 343 [facility] CtrMean platelet xdzkeg3996-22-70 17:00:00* Test Item Value Reference Range Interpretation Comme [facility] Mean Platelet Volume (test c ode = 91542138) 9.3 [facility] CtrNeutrophils seg % lzh0985-09-21 17:00:00* Test Item Value Reference Range Interpretation Comme [facility] Neutrophils (%) (Auto) (test code = 97309-7) 71.4 [facility] granulocyte brmah5575-10-98 17:00:00* Test Item Value Reference Range Interpretation Comme [facility] Absolute Immature Granulocyt e (auto (test code = 27511-6) 0.05 [facility] neutrophils count (number/volume) 2024-04-10 17:00:00* Test Item Value Reference Range Interpretation Comme nts Neutrophils # (Auto) (test c ode = 86332-6) 8.20 [facility] CtrAbsolute lymphocyte pdhsz8462-90-80 17:00:00* Test Item Value Reference Range Interpretation Comme nts Lymphocytes # (Auto) (test c ode = 67779-0) 2.42 [facility] CtrAbsolute basophil aqmql0280-33-76 17:00:00* Test Item Value Reference Range Interpretation Comme [facility] Basophils # (Auto) (test cod e = 68318908) 0.03 [facility] NRBC [id number] 17:00:00* Test Item Value Reference Range Interpretation Comme [facility] Nucleated Red Blood Cells # (test code = 714934699) 0 [facility] CtrCT ABDOMEN PELVIS WO GBQJIDZP4602-20-03 00:27:38 Ordering Physician: JACQUE ROJO Clinical indication: [...] lumbar central canal stenosis is present.[facility] Metabolic Boywd2060-39-97 23:13:34* Test Item Value Reference Range Interpretation Comme nts NA (test code = 4751255643) 136 mmol/L 135-145 K (test code = 7894489020) 3.7 mmol/L 3.5-5.0 CL (test code = 7579661372) 106 mmol/L 98-108 CO2 TOTAL (test code = 4083733755) 20 mmol/L 23-31 L AGAP (test code = 5397635686) 10 2-16 BUN (test code = 9392926588) 6 mg/dL 7-23 L GLUCOSE (test code = 9457270081) 149 mg/dL 70-110 H CREATININE (test code = 2160-0) 0.63 mg/dL 0.50-1.04 TOTAL BILI (test code = 9617669110) 0.3 mg/dL 0.1-1.1 CALCIUM (test code = 0242984367) 9.2 mg/dL 8.6-10.6 T PROTEIN (test code = 2500253427) 7.4 g/dL 6.3-8.2 ALBUMIN (test code = 8970621771) 4.3 g/dL 3.5-5.0 ALK PHOS (test code = 0162537074) 74 U/L 34-122 ALTv (test code = 1742-6) 20 U/L 5-35 AST(SGOT) (test code = 6833136763) 22 U/L 13-40 eGFR (test code = 24217-3) 111.6 mL/min/1.73m2 CKD-EPI eGFR (2020). Assuming creatinine has been stable day-to-day for at least three months, the eGFR indicates Category G1 (>= 90 mL/min/1.73 m2) Lab Interpretation (test code = 41326-1) [facility]normal [facility]field[facility], [id number] 23:12:53* Test Item Value Reference Range Interpretation Comme nts LIPASE (test code = 8127795908) 104 U/L 0-220 Lab Interpretation (test cod e = 86072-5) [facility] Rpmg5569-50-05 23:01:00* Test Item Value Reference Range Interpretation Comme nts POCT PREG (test code = 1605) Negative On board controls acceptable with C Line (test code = 3574) Yes POCT PREG LOT # (test code = 3575) [id number] POCT PREG TEST DATE ( test code = 3576) Lab Interpretation (test cod e = 37135-2) Normal [facility]field[facility] with Pregaymsasom1739-61-13 23:00:31* Test Item Value Reference Range Interpretation [...] 33.0 g/dL 31.6-35.1 RDW-SD (test code = 58359-2) 45.5 fL 39.0-49.9 RDW-CV (test code = 788-0) 15.3 % 12.0-15.5 PLT (test code = 777-3) 370 166-358 H MPV (test code = 81324-6) 9.3 fL 9.5-12.9 L NRBC/100 WBC (test code = 0333394853) 0.0 0.0-10.0 NRBC x10^3 (test code = 2581490873) See_Comment [Automated messa ge] The system which generated this result transmitted reference range: 10*3/?L. The reference range was not used to interpret this result as normal/abnormal. GRAN MAT (NEUT) % (test code = 770-8) 71.8 % IMM GRAN % (test code = 3258525802) 0.60 % LYMPH % (test code = 736-9) 20.9 % MONO % (test code = 5905-5) 4.9 % EOS % (test code = 713-8) 1.4 % BASO % (test code = 706-2) 0.4 % GRAN MAT x10^3(ANC) (test code = 1583675947) 9.75 10*3/uL 1.88-7.09 H IMM GRAN x10^3 (test code = 9706097334) 0.08 10*3/uL 0.00-0.06 H LYMPH x10^3 (test code = 731-0) 2.83 10*3/uL 1.32-3.29 MONO x10^3 (test code = 742-7) 0.66 10*3/uL 0.33-0.92 EOS x10^3 (test code = 711-2) 0.19 10*3/uL 0.03-0.39 BASO x10^3 (test code = 704-7) 0.05 10*3/uL 0.01-0.07 Lab Interpretation (test code = 37520-3) [facility]normal [facility]BD[facility] PELVIS W [id number] 05:07:16ORDERING PHYSICIAN:BOB MUSA CLINICAL INFORMATION: ? Abdominal [...] There are nosuspicious focal osseous lesions.[facility] Complete Metabolic Delzd6860-63-53 04:38:59* Test Item Value Reference Range Interpretation Comme nts NA (test code = 4420280655) 138 mmol/L 135-145 K (test code = 8866726616) 3.7 mmol/L 3.5-5.0 CL (test code = 8314331188) 108 mmol/L 98-108 CO2 TOTAL (test code = 3791874292) 22 mmol/L 23-31 L AGAP (test code = 9683310472) 8 2-16 BUN (test code = 7991260784) 12 mg/dL 7-23 GLUCOSE (test code = 6128883122) 98 mg/dL 70-110 CREATININE (test code = 2160-0) 0.62 mg/dL 0.50-1.04 TOTAL BILI (test code = 8179050955) 0.4 mg/dL 0.1-1.1 CALCIUM (test code = 5545819396) 8.9 mg/dL 8.6-10.6 T PROTEIN (test code = 2138184312) 7.1 g/dL 6.3-8.2 ALBUMIN (test code = 2617898989) 3.8 g/dL 3.5-5.0 ALK PHOS (test code = 0123434280) 89 U/L 34-122 ALTv (test code = 1742-6) 17 U/L 5-35 AST(SGOT) (test code = 0470173386) 22 U/L 13-40 eGFR (test code = 19686-4) 112.8 mL/min/1.73m2 CKD-EPI eGFR (2020). Assuming creatinine has been stable day-to-day for at least three months, the eGFR indicates Category G1 (>= 90 mL/min/1.73 m2) Lab Interpretation (test code = 16407-6) [facility]normal [facility]field[facility], Gqmza5764-28-29 04:38:58* Test Item Value Reference Range Interpretation Comme nts LIPASE (test code = 7922855484) 136 U/L 0-220 Lab Interpretation (test cod e = 70163-5) Normal [facility] with Mphpqxubrcux3274-69-58 04:19:14* Test Item Value Reference Range Interpretation [...] 32.2 g/dL 31.6-35.1 RDW-SD (test code = 96001-6) 50.2 fL 39.0-49.9 H RDW-CV (test code = 788-0) 17.3 % 12.0-15.5 H PLT (test code = 777-3) 377 166-358 H MPV (test code = 34976-6) 9.4 fL 9.5-12.9 L NRBC/100 WBC (test code = 5773175216) 0.0 0.0-10.0 NRBC x10^3 (test code = 7431303091) See_Comment [Automated [employer]] The system which generated this result transmitted reference range: 10*3/?L. The reference range was not used to interpret this result as normal/abnormal. GRAN MAT (NEUT) % (test code = 770-8) 65.3 % IMM GRAN % (test code = 3219388184) 0.40 % LYMPH % (test code = 736-9) 26.1 % MONO % (test code = 5905-5) 6.2 % EOS % (test code = 713-8) 1.6 % BASO % (test code = 706-2) 0.4 % GRAN MAT x10^3(ANC) (test code = 6304079647) 7.33 10*3/uL 1.88-7.09 H IMM GRAN x10^3 (test code = 7501672499) 0.04 10*3/uL 0.00-0.06 LYMPH x10^3 (test code = 731-0) 2.93 10*3/uL 1.32-3.29 MONO x10^3 (test code = 742-7) 0.70 10*3/uL 0.33-0.92 EOS x10^3 (test code = 711-2) 0.18 10*3/uL 0.03-0.39 BASO x10^3 (test code = 704-7) 0.05 10*3/uL 0.01-0.07 Lab Interpretation (test code = 88644-8) Abnormal [facility] WQQQ5704-88-79 03:40:00* Test Item Value Reference Range Interpretation Comme nts POCT PREG (test code = 1605) Negative On board controls acceptable with C Line (test code = 3574) Yes POCT PREG LOT # (test code = 3575) [id number] POCT PREG TEST DATE ( test code = 3576) 2024-10-13 Lab Interpretation (test cod e = 21828-2) Normal [facility]field[facility] [id number] 04:35:04Ordering physician: ROBERTO RICHARDS INDICATION: Abdominal pain COMPARISON: CT of the abdomen and pelv is dated 03/09/2023 FINDINGS: Supine AP view of the abdomen and pelvis. There is no bowelobstruction or generalized constipation.[facility] Abpd9101-38-27 02:30:00* Test Item Value Reference Range Interpretation Comme nts POCT PREG (test code = 1605) Negative On board controls acceptable with C Line (test code = 3574) Yes POCT PREG LOT # (test code = 3575) [id number] POCT PREG TEST DATE ( test code = 3576) 2024-09-15 Lab Interpretation (test cod e = 94394-9) Normal [facility] WITH VNHE9383-92-05 00:05:06* Test Item Value Reference Range Interpretation [...] 34.2 g/dL 31.6-35.1 RDW-SD (test code = 18748-5) 41.5 fL 39.0-49.9 RDW-CV (test code = 788-0) 14.5 % 12.0-15.5 PLT (test code = 777-3) 384 See_Comment H [Automated messa ge] The system which generated this result transmitted reference range: 166 - 358 10*3/?L. The reference range was not used to interpret this result as normal/abnormal. MPV (test code = 89172-7) 9.6 fL 9.5-12.9 GRAN MAT (NEUT) % (test code = 770-8) 66.0 % IMM GRAN % (test code = 7103417523) 0.50 % LYMPH % (test code = 736-9) 27.4 % MONO % (test code = 5905-5) 4.6 % EOS % (test code = 713-8) 1.1 % BASO % (test code = 706-2) 0.4 % GRAN MAT x10^3(ANC) (test code = 1730377353) 7.96 10*3/uL 1.88-7.09 H IMM GRAN x10^3 (test code = 8943026428) 0.06 10*3/uL 0.00-0.06 LYMPH x10^3 (test code = 731-0) 3.30 10*3/uL 1.32-3.29 H MONO x10^3 (test code = 742-7) 0.56 10*3/uL 0.33-0.92 EOS x10^3 (test code = 711-2) 0.13 10*3/uL 0.03-0.39 BASO x10^3 (test code = 704-7) 0.05 10*3/uL 0.01-0.07 Lab Interpretation (test code = 88832-9) [facility]field[facility] METABOLIC PANEL (68012)2023-05-09 23:27:13* Test Item Value Reference Range Interpretation Comme nts NA (test code = 4681052963) 137 mmol/L 135-145 K (test code = 4793351838) 3.3 mmol/L 3.5-5.0 L CL (test code = 6426048421) 103 mmol/L 98-108 CO2 TOTAL (test code = 0301656801) 20 mmol/L 23-31 L AGAP (test code = 5850308203) 14 2-16 BUN (test code = 4279887360) 5 mg/dL 7-23 L GLUCOSE (test code = 0198629417) 146 mg/dL 70-110 H CREATININE (test code = 9762104176) 0.60 mg/dL 0.50-1.04 TOTAL BILI (test code = 2479374216) 0.3 mg/dL 0.1-1.1 CALCIUM (test code = 4924212053) 9.3 mg/dL 8.6-10.6 T PROTEIN (test code = 0147311811) 7.9 g/dL 6.3-8.2 ALBUMIN (test code = 5112969425) 4.4 g/dL 3.5-5.0 ALK PHOS (test code = 6748536548) 105 U/L 34-122 ALTv (test code = 1742-6) 38 U/L 5-35 H AST(SGOT) (test code = 6082471926) 21 U/L 13-40 eGFR (test code = 80112-1) 113.7 mL/min/1.73m2 CKD-EPI eGFR (2020). Assuming creatinine has been stable day-to-day for at least three months, the eGFR indicates Category G1 (>= 90 mL/min/1.73 m2) Lab Interpretation (test code = 11267-6) [facility]20[facility] 23:27:13* Test Item Value Reference Range Interpretation Comme nts LIPASE (test code = 6773175196) 142 U/L 0-220 Lab Interpretation (test cod e = 84158-4) Normal [facility] MET[facility]OLIC PANEL (01392)2023-04-30 23:41:47* Test Item Value Reference Range Interpretation Comme nts NA (test code = 2134842768) 139 mmol/L 135-145 K (test code = 6313753454) 3.3 mmol/L 3.5-5.0 L CL (test code = 8247513607) 105 mmol/L 98-108 CO2 TOTAL (test code = 4195427601) 20 mmol/L 23-31 L AGAP (test code = 1127018222) 14 2-16 BUN (test code = 4037656869) 6 mg/dL 7-23 L GLUCOSE (test code = 7903867979) 119 mg/dL 70-110 H CREATININE (test code = 6665758813) 0.59 mg/dL 0.50-1.04 TOTAL BILI (test code = 1484052121) 0.3 mg/dL 0.1-1.1 CALCIUM (test code = 4904615432) 9.7 mg/dL 8.6-10.6 T PROTEIN (test code = 0862400755) 7.6 g/dL 6.3-8.2 ALBUMIN (test code = 2238974538) 4.2 g/dL 3.5-5.0 ALK PHOS (test code = 6338861745) 78 U/L 34-122 ALTv (test code = 1742-6) 24 U/L 5-35 AST(SGOT) (test code = 4593469448) 24 U/L 13-40 eGFR (test code = 3268335652) 110.7 mL/min/1.73m2 DARWIN (test code = DARWIN) [...] imaging tests). Lab Interpretation (test code = 86551-9) Abnormal [facility] WITH [id number] 23:29:07* Test Item Value Reference Range Interpretation Comme nts WBC (test code = 6690-2) 11.56 See_Comment H [Automated [employer]] The system which generated this result transmitted reference range: 4.30 - 11.10 10*3/?L. The reference range was not used to interpret this result as normal/abnormal. RBC (test code = 789-8) 5.02 See_Comment [Automated [employer]] The system which generated this result [...] 33.7 g/dL 31.6-35.1 RDW-SD (test code = 60228-8) 41.5 fL 39.0-49.9 RDW-CV (test code = 788-0) 14.3 % 12.0-15.5 PLT (test code = 777-3) 335 See_Comment [Automated [employer]] The system which generated this result transmitted reference range: 166 - 358 10*3/?L. The reference range was not used to interpret this result as normal/abnormal. MPV (test code = 77938-0) 9.7 fL 9.5-12.9 NRBC/100 WBC (test code = 4138567110) 0.0 See_Comment [Automated [employer] ssage] The system which generated this result transmitted reference range: 0.0 - 10.0 /100 WBCs. The reference range was not used to interpret this result as normal/abnormal. NRBC x10^3 (test code = 7143776292) See_Comment [Automated [employer]] The system which generated this result transmitted reference range: 10*3/?L. The reference range was not used to interpret this result as normal/abnormal. GRAN MAT (NEUT) % (test code = 770-8) 65.7 % IMM GRAN % (test code = 7990765009) 0.50 % LYMPH % (test code = 736-9) 25.4 % MONO % (test code = 5905-5) 6.7 % EOS % (test code = 713-8) 1.2 % BASO % (test code = 706-2) 0.5 % GRAN MAT x10^3(ANC) (test code = 0282762159) 7.59 10*3/uL 1.88-7.09 H IMM GRAN x10^3 (test code = 5347638812) 0.06 10*3/uL 0.00-0.06 LYMPH x10^3 (test code = 731-0) 2.94 10*3/uL 1.32-3.29 MONO x10^3 (test code = 742-7) 0.77 10*3/uL 0.33-0.92 EOS x10^3 (test code = 711-2) 0.14 10*3/uL 0.03-0.39 BASO x10^3 (test code = 704-7) 0.06 10*3/uL 0.01-0.07 Lab Interpretation (test code = 27212-6) [facility] [id number] 22:59:00* Test Item Value Reference Range Interpretation Comme nts POCT PREG (test code = 1605) Negative On board controls acceptable with C Line (test code = 3574) Yes POCT PREG LOT # (test code = 3575) [id number] POCT PREG TEST DATE ( test code = 3576) 07/10/2024 Lab Interpretation (test cod e = 58145-7) Normal [facility]field[facility] [id number] 02:36:34* Test Item Value Reference Range Interpretation Comme nts TROPONIN I (test code = 3513338865) 0.000 ng/mL <=0.034 DARWIN (test code = [...] of biotin. Lab Interpretation (test code = 67852-4) Normal [facility]-TERMINAL JJZ-[id number] 02:34:17* Test Item Value Reference Range Interpretation Comme [facility] NT-proBNP (test code = 45934-9) 40 pg/mL <=125 Lab Interpretation (test cod e = 29253-8) Normal [facility]fieldACTIVATED PARTIAL THRMPLAS [id number] 02:33:37* Test Item Value Reference Range Interpretation Comme [facility] APTT Patient (test code = 3173-2) 25 See_Comment [Automated message] The system which generated this result transmitted reference range: 23 - 38 Seconds. The reference range was not used to interpret this result as normal/abnormal. DARWIN (test code = DARWIN) The [facility] patient population mean normal value for aPTT is 30 seconds. Lab Interpretation (test code = 51864-0) Normal [facility]fieldPROTHROMBIN TIME / [id number] 02:31:36* Test Item Value Reference Range Interpretation Comme [facility] PROTIME PATIENT (test [...] the indications. Lab Interpretation (test code = 57775-0) Normal [facility] METABOLIC PANEL (45142)2023-04-17 02:24:56* Test Item Value Reference Range Interpretation Comme nts NA (test code = 9088321426) 142 mmol/L 135-145 K (test code = 4510764084) 3.1 mmol/L 3.5-5.0 L CL (test code = 4947908392) 108 mmol/L 98-108 CO2 TOTAL (test code = 7657453471) 20 mmol/L 23-31 L AGAP (test code = 9479053517) 14 2-16 BUN (test code = 1409908590) 4 mg/dL 7-23 L GLUCOSE (test code = 2840777949) 107 mg/dL 70-110 CREATININE (test code = 6127422585) 0.61 mg/dL 0.50-1.04 TOTAL BILI (test code = 9973825678) 0.2 mg/dL 0.1-1.1 CALCIUM (test code = 4702864391) 9.1 mg/dL 8.6-10.6 T PROTEIN (test code = 1574593380) 7.0 g/dL 6.3-8.2 ALBUMIN (test code = 2499356339) 3.9 g/dL 3.5-5.0 ALK PHOS (test code = 3822324021) 69 U/L 34-122 ALTv (test code = 1742-6) 21 U/L 5-35 AST(SGOT) (test code = 7293548174) 21 U/L 13-40 eGFR (test code = 1266891627) 106.5 mL/min/1.73m2 DARWIN (test code = DARWIN) [...] imaging tests). Lab Interpretation (test code = 88027-6) [facility]2023-[facility]-11 02:24:56* Test Item Value Reference Range Interpretation Comme nts LIPASE (test code = 9276453089) 104 U/L 0-220 Lab Interpretation (test cod e = 20698-0) Normal [facility] WITH [id number] 02:13:31* Test Item Value Reference Range Interpretation Comme nts WBC (test code = 6690-2) 10.74 See_Comment [Automated [employer]] The system which generated this result transmitted reference range: 4.30 - 11.10 10*3/?L. The reference range was not used to interpret this result as normal/abnormal. RBC (test code = 789-8) 4.75 See_Comment [Automated [employer]] The system which generated this result [...] 34.5 g/dL 31.6-35.1 RDW-SD (test code = 40936-9) 39.1 fL 39.0-49.9 RDW-CV (test code = 788-0) 13.5 % 12.0-15.5 PLT (test code = 777-3) 324 See_Comment [Automated [employer]] The system which generated this result transmitted reference range: 166 - 358 10*3/?L. The reference range was not used to interpret this result as normal/abnormal. MPV (test code = 59376-2) 9.3 fL 9.5-12.9 L NRBC/100 WBC (test code = 1288811679) 0.0 See_Comment [Automated me ssage] The system which generated this result transmitted reference range: 0.0 - 10.0 /100 WBCs. The reference range was not used to interpret this result as normal/abnormal. NRBC x10^3 (test code = 5361132606) See_Comment [Automated messa ge] The system which generated this result transmitted reference range: 10*3/?L. The reference range was not used to interpret this result as normal/abnormal. GRAN MAT (NEUT) % (test code = 770-8) 65.2 % IMM GRAN % (test code = 8564430278) 0.40 % LYMPH % (test code = 736-9) 26.5 % MONO % (test code = 5905-5) 5.8 % EOS % (test code = 713-8) 1.7 % BASO % (test code = 706-2) 0.4 % GRAN MAT x10^3(ANC) (test code = 8558364353) 7.01 10*3/uL 1.88-7.09 IMM GRAN x10^3 (test code = 7313434864) 0.04 10*3/uL 0.00-0.06 LYMPH x10^3 (test code = 731-0) 2.85 10*3/uL 1.32-3.29 MONO x10^3 (test code = 742-7) 0.62 10*3/uL 0.33-0.92 EOS x10^3 (test code = 711-2) 0.18 10*3/uL 0.03-0.39 BASO x10^3 (test code = 704-7) 0.04 10*3/uL 0.01-0.07 Lab Interpretation (test code = 56414-3) [facility]PO[facility] [id number] 02:11:00* Test Item Value Reference Range Interpretation Comme nts POCT PREG (test code = 1605) Negative On board controls acceptable with C Line (test code = 3574) Yes POCT PREG LOT # (test code = 3575) [id number] POCT PREG TEST DATE ( test code = 3576) 2024-09-04 Lab Interpretation (test cod e = 61092-8) Normal [facility]field[facility] [id number] 23:59:14* Test Item Value Reference Range Interpretation Comme nts TROPONIN I (test code = 4586762426) 0.000 ng/mL <=0.034 DARWIN (test code = [...] of biotin. Lab Interpretation (test code = 91130-0) Normal [facility]. METABOLIC PANEL (27763)2023-04-08 23:47:52* Test Item Value Reference Range Interpretation Comme nts NA (test code = 5164573379) 138 mmol/L 135-145 K (test code = 1690389134) 3.4 mmol/L 3.5-5.0 L CL (test code = 0600569374) 103 mmol/L 98-108 CO2 TOTAL (test code = 1035381538) 22 mmol/L 23-31 L AGAP (test code = 5694074979) 13 2-16 BUN (test code = 8227971400) 6 mg/dL 7-23 L GLUCOSE (test code = 8101923589) 106 mg/dL 70-110 CREATININE (test code = 3854048426) 0.91 mg/dL 0.50-1.04 TOTAL BILI (test code = 2627277141) 0.2 mg/dL 0.1-1.1 CALCIUM (test code = 1361610911) 8.7 mg/dL 8.6-10.6 T PROTEIN (test code = 4668902632) 7.4 g/dL 6.3-8.2 ALBUMIN (test code = 2856594381) 4.1 g/dL 3.5-5.0 ALK PHOS (test code = 4796551217) 71 U/L 34-122 ALTv (test code = 1742-6) 28 U/L 5-35 AST(SGOT) (test code = 9039915056) 28 U/L 13-40 eGFR (test code = 3407067647) 67.2 mL/min/1.73m2 DARWIN (test code = DARWIN) [...] imaging tests). Lab Interpretation (test code = 80263-2) [facility] 23:47:52* Test Item Value Reference Range Interpretation Comme nts MAGNESIUM (test code = 8598423849) 2.0 mg/dL 1.7-2.4 Lab Interpretation (test cod e = 09933-1) [facility] 23:47:52* Test Item Value Reference Range Interpretation Comme nts LIPASE (test code = 0753910367) 74 U/L 0-220 Lab Interpretation (test cod e = 15464-7) Normal [facility] WITH [id number] 23:36:30* Test Item Value Reference Range Interpretation [...] 34.5 g/dL 31.6-35.1 RDW-SD (test code = 89650-9) 39.3 fL 39.0-49.9 RDW-CV (test code = 788-0) 13.6 % 12.0-15.5 PLT (test code = 777-3) 305 See_Comment [Automated messa ge] The system which generated this result transmitted reference range: 166 - 358 10*3/?L. The reference range was not used to interpret this result as normal/abnormal. MPV (test code = 17364-5) 9.6 fL 9.5-12.9 NRBC/100 WBC (test code = 9179309775) 0.0 See_Comment [Automated [employer]] The system which generated this result transmitted reference range: 0.0 - 10.0 /100 WBCs. The reference range was not used to interpret this result as normal/abnormal. NRBC x10^3 (test code = 8820580118) See_Comment [Automated messa ge] The system which generated this result transmitted reference range: 10*3/?L. The reference range was not used to interpret this result as normal/abnormal. GRAN MAT (NEUT) % (test code = 770-8) 66.5 % IMM GRAN % (test code = 6810096153) 0.30 % LYMPH % (test code = 736-9) 25.3 % MONO % (test code = 5905-5) 5.2 % EOS % (test code = 713-8) 2.3 % BASO % (test code = 706-2) 0.4 % GRAN MAT x10^3(ANC) (test code = 0834863055) 6.61 10*3/uL 1.88-7.09 IMM GRAN x10^3 (test code = 2549443944) 0.03 10*3/uL 0.00-0.06 LYMPH x10^3 (test code = 731-0) 2.52 10*3/uL 1.32-3.29 MONO x10^3 (test code = 742-7) 0.52 10*3/uL 0.33-0.92 EOS x10^3 (test code = 711-2) 0.23 10*3/uL 0.03-0.39 BASO x10^3 (test code = 704-7) 0.04 10*3/uL 0.01-0.07 Lab Interpretation (test code = 92516-7) Abnormal [facility] [id number] 02:51:00* Test Item Value Reference Range Interpretation Comme nts POCT PREG (test code = 1605) Negative On board controls acceptable with C Line (test code = 3574) Yes POCT PREG LOT # (test code = 3575) [id number] POCT PREG TEST DATE ( test code = 3576) 07/10/2024 Lab Interpretation (test cod e = 36158-5) [id number] 03:26:00* Test Item Value Reference Range Interpretation Comme nts POCT PREG (test code = 1605) Negative On board controls acceptable with C Line (test code = 3574) Yes POCT PREG LOT # (test code = 3575) [id number] POCT PREG TEST DATE ( test code = 3576) Lab Interpretation (test cod e = 24510-5) [facility] 22:35:38* Test Item Value Reference Range Interpretation Comme nts LIPASE (test code = 9318264223) 2049 U/L 0-220 H Lab Interpretation (test cod e = 36439-2) Abnormal [facility] WITH [id number] 22:30:10* Test Item Value Reference Range Interpretation [...] 34.6 g/dL 31.6-35.1 RDW-SD (test code = 01882-9) 42.7 fL 39.0-49.9 RDW-CV (test code = 788-0) 14.6 % 12.0-15.5 PLT (test code = 777-3) 331 See_Comment [Automated messa ge] The system which generated this result transmitted reference range: 166 - 358 10*3/?L. The reference range was not used to interpret this result as normal/abnormal. MPV (test code = 35261-7) 9.7 fL 9.5-12.9 NRBC/100 WBC (test code = 8496649418) 0.0 See_Comment [Automated me ssage] The system which generated this result transmitted reference range: 0.0 - 10.0 /100 WBCs. The reference range was not used to interpret this result as normal/abnormal. NRBC x10^3 (test code = 3010442382) See_Comment [Automated messa ge] The system which generated this result transmitted reference range: 10*3/?L. The reference range was not used to interpret this result as normal/abnormal. GRAN MAT (NEUT) % (test code = 770-8) 65.7 % IMM GRAN % (test code = 4705374568) 0.50 % LYMPH % (test code = 736-9) 26.5 % MONO % (test code = 5905-5) 5.4 % EOS % (test code = 713-8) 1.5 % BASO % (test code = 706-2) 0.4 % GRAN MAT x10^3(ANC) (test code = 9392572090) 8.05 10*3/uL 1.88-7.09 H IMM GRAN x10^3 (test code = 7279458526) 0.06 10*3/uL 0.00-0.06 LYMPH x10^3 (test code = 731-0) 3.24 10*3/uL 1.32-3.29 MONO x10^3 (test code = 742-7) 0.66 10*3/uL 0.33-0.92 EOS x10^3 (test code = 711-2) 0.18 10*3/uL 0.03-0.39 BASO x10^3 (test code = 704-7) 0.05 10*3/uL 0.01-0.07 Lab Interpretation (test code = 38546-0) [facility] 22:27:47* Test Item Value Reference Range Interpretation Comme nts NA (test code = 9257760585) 138 mmol/L 135-145 K (test code = 0373522089) 3.7 mmol/L 3.5-5.0 CL (test code = 4318996186) 105 mmol/L 98-108 CO2 TOTAL (test code = 0492189736) 23 mmol/L 23-31 AGAP (test code = 7574699454) 10 2-16 BUN (test code = 6006385350) 6 mg/dL 7-23 L GLUCOSE (test code = 9633966442) 92 mg/dL 70-110 CREATININE (test code = 9781734665) 0.77 mg/dL 0.50-1.04 TOTAL BILI (test code = 6232241626) 0.7 mg/dL 0.1-1.1 CALCIUM (test code = 4401421589) 9.0 mg/dL 8.6-10.6 T PROTEIN (test code = 7024578701) 7.5 g/dL 6.3-8.2 ALBUMIN (test code = 2305432041) 4.0 g/dL 3.5-5.0 ALK PHOS (test code = 6050528979) 101 U/L 34-122 ALTv (test code = 1742-6) 25 U/L 5-35 AST(SGOT) (test code = 6875951253) 36 U/L 13-40 eGFR (test code = 5222031520) 81.8 mL/min/1.73m2 DARWIN (test code = DARWIN) [...] imaging tests). Lab Interpretation (test code = 74907-6) [facility] 20:56:28* Test Item Value Reference Range Interpretation Comments D-DIMER (test code = 8181614452) 0.44 See_Comment H [Automated message] The system [...] a diagnosis. Lab Interpretation (test code = 34711-8) [facility] [id number] 01:15:16* Test Item Value Reference Range Interpretation Comments TROPONIN I (test code = 5344771163) 0.001 ng/mL See_Comment [Automated message] The system [...] of biotin. Lab Interpretation (test code = 70141-1) [facility] [id number] 22:52:31* Test Item Value Reference Range Interpretation Comments TROPONIN I (test code = 9403781666) 0.001 ng/mL See_Comment [Automated message] The system [...] of biotin. Lab Interpretation (test code = 77927-7) [facility] [id number]-[id number] 22:49:33* Test Item Value Reference Range Interpretation Comme nts NT-proBNP (test code = 6687975332) 145 pg/mL See_Comment H [Automated message] The system which generated this result transmitted reference range: <=125. The reference range was not used to interpret this result as normal/abnormal. DARWIN (test code = DARWIN) Biotin has been reported to cause a negative bias, interpret results relative to patient's use of biotin. Lab Interpretation (test code = 74131-4) [facility] (NA, K, CL, CO2, GLUCOSE, BUN, CREATININE, CA)2022-01-09 22:40:32* Test Item Value Reference Range Interpretation Comme nts NA (test code = 4588033205) 142 mmol/L 135-145 K (test code = 7359384118) 3.3 mmol/L 3.5-5.0 L CL (test code = 7521139073) 109 mmol/L 98-108 H CO2 TOTAL (test code = 7904623215) 22 mmol/L 23-31 L AGAP (test code = 8369810161) 2-16 BUN (test code = 2901322674) 9 mg/dL 7-23 GLUCOSE (test code = 6589472984) 116 mg/dL 70-110 H CREATININE (test code = 4528248637) 0.69 mg/dL 0.50-1.04 CALCIUM (test code = 6784119596) 9.2 mg/dL 8.6-10.6 eGFR (test code = 9239671726) mL/min/1.73m2 DARWIN (test code = DARWIN) Association [...] imaging tests). Lab Interpretation (test code = 78306-1) Abnormal [facility] WITH [id number] 22:29:09* Test Item Value Reference Range Interpretation Comme nts WBC (test code = 6690-2) See_Comment [Automated [employer]] The system which generated this result [...] 34.4 g/dL 31.6-35.1 RDW-SD (test code = 03441-4) 40.7 fL 39.0-49.9 RDW-CV (test code = 788-0) 14.1 % 12.0-15.5 PLT (test code = 777-3) See_Comment [Automated [employer]] The system which generated this result transmitted reference range: 166 - 358 10*3/?L. The reference range was not used to interpret this result as normal/abnormal. MPV (test code = 72868-9) 9.6 fL 9.5-12.9 NRBC/100 WBC (test code = 4816051375) See_Comment [Automated [employer] ssage] The system which generated this result transmitted reference range: 0.0 - 10.0 /100 WBCs. The reference range was not used to interpret this result as normal/abnormal. NRBC x10^3 (test code = 4362211288) <0.01 See_Comment [Automated messa ge] The system which generated this result transmitted reference range: 10*3/?L. The reference range was not used to interpret this result as normal/abnormal. GRAN MAT (NEUT) % (test code = 770-8) 54.7 % IMM GRAN % (test code = 8217806226) 0.40 % LYMPH % (test code = 736-9) 33.8 % MONO % (test code = 5905-5) 7.1 % EOS % (test code = 713-8) 3.3 % BASO % (test code = 706-2) 0.7 % GRAN MAT x10^3(ANC) (test code = 2305184227) 4.87 10*3/uL 1.88-7.09 IMM GRAN x10^3 (test code = 0573033827) 0.04 10*3/uL 0.00-0.06 LYMPH x10^3 (test code = 731-0) 3.01 10*3/uL 1.32-3.29 MONO x10^3 (test code = 742-7) 0.63 10*3/uL 0.33-0.92 EOS x10^3 (test code = 711-2) 0.29 10*3/uL 0.03-0.39 BASO x10^3 (test code = 704-7) 0.06 10*3/uL 0.01-0.07 Lab Interpretation (test code = 21872-3) [facility] [id number] 06:45:45* Test Item Value Reference Range Interpretation Comments TROPONIN I (test code = 5297675078) 0.000 ng/mL See_Comment [Automated message] The system [...] of biotin. Lab Interpretation (test code = 83061-9) [facility] [id number] 05:00:55 * Test Item Value Reference Range Interpretation Comme nts TSH (test code = 4238384634) See_Comment [Automated messa ge] The system which generated this result transmitted reference range: 0.45 - 4.70 mIU/L. The reference range was not used to interpret this result as normal/abnormal. Lab Interpretation (test code = 78318-0) Normal [facility] [id number] 04:47:50* Test Item Value Reference Range Interpretation Comme nts FREE T4 (test code = 0411281793) See_Comment [Automated messa ge] The system which generated this result transmitted reference range: 0.78 - 2.20 ng/dL:. The reference range was not used to interpret this result as normal/abnormal. Lab Interpretation (test code = 39435-4) Normal [facility] [id number] 04:47:10* Test Item Value Reference Range Interpretation Comme nts FREE T3 (test code = 0573149962) 4.37 pg/mL 2.77-5.27 Lab Interpretation (test cod e = 67517-4) [id number] 04:42:07* Test Item Value Reference Range Interpretation Comments TROPONIN I (test code = 4566234770) 0.001 ng/mL See_Comment [Automated message] The system [...] of biotin. Lab Interpretation (test code = 45813-3) Normal [facility] METABOLIC PANEL (46920)2021-12-14 04:30:28* Test Item Value Reference Range Interpretation Comme nts NA (test code = 6586677389) 141 mmol/L 135-145 K (test code = 3844179336) 3.6 mmol/L 3.5-5.0 CL (test code = 5871025204) 111 mmol/L 98-108 H CO2 TOTAL (test code = 8392635947) 19 mmol/L 23-31 L AGAP (test code = 6685375430) 2-16 BUN (test code = 0804674504) 15 mg/dL 7-23 GLUCOSE (test code = 6911226609) 113 mg/dL 70-110 H CREATININE (test code = 7759522313) 1.05 mg/dL 0.50-1.04 H TOTAL BILI (test code = 4293456092) 0.2 mg/dL 0.1-1.1 CALCIUM (test code = 9441684420) 9.8 mg/dL 8.6-10.6 T PROTEIN (test code = 9631920998) 6.8 g/dL 6.3-8.2 ALBUMIN (test code = 0082549866) 4.2 g/dL 3.5-5.0 ALK PHOS (test code = 0891363842) 73 U/L 34-122 ALTv (test code = 1742-6) 16 U/L 5-35 AST(SGOT) (test code = 9655569713) 19 U/L 13-40 eGFR (test code = 3626715661) mL/min/1.73m2 DARWIN (test code = DARWIN) Association [...] imaging tests). Lab Interpretation (test code = 54787-4) [facility] 04:29:48* Test Item Value Reference Range Interpretation Comme nts LIPASE (test code = 4648539334) 225 U/L 0-220 H Lab Interpretation (test cod e = 53293-6) [facility] [id number] 04:20:00* Test Item Value Reference Range Interpretation Comme nts POCT PREG (test code = 1605) negative On board controls acceptable with C Line (test code = 3574) present POCT PREG LOT # (test code = 3575) [id number] POCT PREG TEST DATE ( test code = 3576) 2023-05-07 Lab Interpretation (test cod e = 43851-8) [facility] WITH [id number] 04:01:25* Test Item Value Reference Range Interpretation Comme nts WBC (test code = 6690-2) See_Comment [Automated [employer]] The system which generated this result transmitted reference range: 4.30 - 11.10 10*3/?L. The reference range was not used to interpret this result as normal/abnormal. RBC (test code = 789-8) See_Comment H [Automated [employer]] The system which generated this result [...] 34.3 g/dL 31.6-35.1 RDW-SD (test code = 27165-4) 39.5 fL 39.0-49.9 RDW-CV (test code = 788-0) 13.6 % 12.0-15.5 PLT (test code = 777-3) See_Comment [Automated messa ge] The system which generated this result transmitted reference range: 166 - 358 10*3/?L. The reference range was not used to interpret this result as normal/abnormal. MPV (test code = 20621-8) 9.9 fL 9.5-12.9 NRBC/100 WBC (test code = 6828402380) See_Comment [Automated [employer] ssage] The system which generated this result transmitted reference range: 0.0 - 10.0 /100 WBCs. The reference range was not used to interpret this result as normal/abnormal. NRBC x10^3 (test code = 7992797442) <0.01 See_Comment [Automated [employer]] The system which generated this result transmitted reference range: 10*3/?L. The reference range was not used to interpret this result as normal/abnormal. GRAN MAT (NEUT) % (test code = 770-8) 51.5 % IMM GRAN % (test code = 8702509380) 0.50 % LYMPH % (test code = 736-9) 35.8 % MONO % (test code = 5905-5) 9.4 % EOS % (test code = 713-8) 2.2 % BASO % (test code = 706-2) 0.6 % GRAN MAT x10^3(ANC) (test code = 4146302694) 5.37 10*3/uL 1.88-7.09 IMM GRAN x10^3 (test code = 5979797671) 0.05 10*3/uL 0.00-0.06 LYMPH x10^3 (test code = 731-0) 3.73 10*3/uL 1.32-3.29 H MONO x10^3 (test code = 742-7) 0.98 10*3/uL 0.33-0.92 H EOS x10^3 (test code = 711-2) 0.23 10*3/uL 0.03-0.39 BASO x10^3 (test code = 704-7) 0.06 10*3/uL 0.01-0.07 Lab Interpretation (test code = 92098-2) Abnormal [facility] [id number] 04:04:13* Test Item Value Reference Range Interpretation Comments TROPONIN I (test code = 1308097470) 0.001 ng/mL See_Comment [Automated message] The system [...] of biotin. Lab Interpretation (test code = 72322-2) [facility] [id number] 02:56:00* Test Item Value Reference Range Interpretation Comme nts POCT PREG (test code = 1605) negative On board controls acceptable with C Line (test code = 3574) present POCT PREG LOT # (test code = 3575) [id number] POCT PREG TEST DATE ( test code = 3576) 2023-04-06 Lab Interpretation (test cod e = 94268-4) Normal [facility] [id number] 02:15:30* Test Item Value Reference Range Interpretation Comments TROPONIN I (test code = 0239113458) 0.000 ng/mL See_Comment [Automated message] The system [...] of biotin. Lab Interpretation (test code = 89842-9) [facility] [id number]-[id number] 02:12:14* Test Item Value Reference Range Interpretation Comme nts NT-proBNP (test code = 7151234435) 109 pg/mL See_Comment [Automated message] The system which generated this result transmitted reference range: <=125. The reference range was not used to interpret this result as normal/abnormal. DARWIN (test code = DARWIN) Biotin has been reported to cause a negative bias, interpret results relative to patient's use of biotin. Lab Interpretation (test code = 85844-2) [facility] (06965)2021-11-12 02:04:12* Test Item Value Reference Range Interpretation Comme nts NA (test code = 0196219043) 140 mmol/L 135-145 K (test code = 7045710252) 4.0 mmol/L 3.5-5.0 CL (test code = 8754993357) 111 mmol/L 98-108 H CO2 TOTAL (test code = 3689571657) 17 mmol/L 23-31 L AGAP (test code = 9953689698) 2-16 BUN (test code = 8072701955) 9 mg/dL 7-23 GLUCOSE (test code = 2174578826) 105 mg/dL 70-110 CREATININE (test code = 6275964342) 0.72 mg/dL 0.50-1.04 TOTAL BILI (test code = 6353227137) 0.4 mg/dL 0.1-1.1 CALCIUM (test code = 0311920367) 9.3 mg/dL 8.6-10.6 T PROTEIN (test code = 8215264471) 6.6 g/dL 6.3-8.2 ALBUMIN (test code = 4049988951) 4.0 g/dL 3.5-5.0 ALK PHOS (test code = 9597422272) 70 U/L 34-122 ALTv (test code = 1742-6) 19 U/L 5-35 AST(SGOT) (test code = 6503052018) 21 U/L 13-40 eGFR (test code = 7458113530) mL/min/1.73m2 DARWIN (test code = DARWIN) Association [...] imaging tests). Lab Interpretation (test code = 11063-4) [facility] 02:03:32* Test Item Value Reference Range Interpretation Comme nts LIPASE (test code = 3443438467) 173 U/L 0-220 Lab Interpretation (test cod e = 09476-8) Normal [facility] WITH [id number] 01:43:53* Test Item Value Reference Range Interpretation [...] 33.7 g/dL 31.6-35.1 RDW-SD (test code = 54565-1) 41.3 fL 39.0-49.9 RDW-CV (test code = 788-0) 14.3 % 12.0-15.5 PLT (test code = 777-3) See_Comment [Automated messa ge] The system which generated this result transmitted reference range: 166 - 358 10*3/?L. The reference range was not used to interpret this result as normal/abnormal. MPV (test code = 54528-4) 9.7 fL 9.5-12.9 NRBC/100 WBC (test code = 9700761317) See_Comment [Automated [employer] ssage] The system which generated this result transmitted reference range: 0.0 - 10.0 /100 WBCs. The reference range was not used to interpret this result as normal/abnormal. NRBC x10^3 (test code = 1566427271) <0.01 See_Comment [Automated messa ge] The system which generated this result transmitted reference range: 10*3/?L. The reference range was not used to interpret this result as normal/abnormal. GRAN MAT (NEUT) % (test code = 770-8) 62.6 % IMM GRAN % (test code = 3302436399) 0.50 % LYMPH % (test code = 736-9) 27.0 % MONO % (test code = 5905-5) 6.5 % EOS % (test code = 713-8) 2.9 % BASO % (test code = 706-2) 0.5 % GRAN MAT x10^3(ANC) (test code = 2444251857) 6.30 10*3/uL 1.88-7.09 IMM GRAN x10^3 (test code = 9386670412) 0.05 10*3/uL 0.00-0.06 LYMPH x10^3 (test code = 731-0) 2.71 10*3/uL 1.32-3.29 MONO x10^3 (test code = 742-7) 0.65 10*3/uL 0.33-0.92 EOS x10^3 (test code = 711-2) 0.29 10*3/uL 0.03-0.39 BASO x10^3 (test code = 704-7) 0.05 10*3/uL 0.01-0.07 Lab Interpretation (test code = 76393-4) [facility] [id number] 02:21:00* Test Item Value Reference Range Interpretation Comme nts POCT PREG (test code = 1605) Negative On board controls acceptable with C Line (test code = 3574) Present Lab Interpretation (test cod e = 17245-5) [facility]field[facility] Metabolic Pskyn6075-07-00 02:05:50* Test Item Value Reference Range Interpretation Comme nts NA (test code = 1079098147) 137 mmol/L 135-145 K (test code = 3957668029) 3.9 mmol/L 3.5-5.0 CL (test code = 8348457968) 109 mmol/L 98-108 H CO2 TOTAL (test code = 8251757657) 19 mmol/L 23-31 L AGAP (test code = 3597970905) 2-16 BUN (test code = 4162287713) 10 mg/dL 7-23 GLUCOSE (test code = 0646385391) 101 mg/dL 70-110 CREATININE (test code = 8676669516) 0.80 mg/dL 0.50-1.04 TOTAL BILI (test code = 7715639603) 0.3 mg/dL 0.1-1.1 CALCIUM (test code = 7425346745) 8.8 mg/dL 8.6-10.6 T PROTEIN (test code = 6650960368) 6.6 g/dL 6.3-8.2 ALBUMIN (test code = 9006167470) 4.0 g/dL 3.5-5.0 ALK PHOS (test code = 2618032581) 71 U/L 34-122 ALTv (test code = 1742-6) 18 U/L 5-35 AST(SGOT) (test code = 0162878102) 20 U/L 13-40 eGFR (test code = 9095268571) mL/min/1.73m2 DARWIN (test code = DARWIN) Association [...] imaging tests). Lab Interpretation (test code = 79829-0) [facility]field[facility], Mlfby8956-84-45 02:05:25* Test Item Value Reference Range Interpretation Comme nts LIPASE (test code = 9976100351) 96 U/L 0-220 Lab Interpretation (test cod e = 26114-2) [facility] with Gatigicxtgew1333-06-19 01:53:06* Test Item Value Reference Range Interpretation [...] 34.3 g/dL 31.6-35.1 RDW-SD (test code = 42097-8) 40.5 fL 39.0-49.9 RDW-CV (test code = 788-0) 14.4 % 12.0-15.5 PLT (test code = 777-3) See_Comment [Automated messa ge] The system which generated this result transmitted reference range: 166 - 358 10*3/?L. The reference range was not used to interpret this result as normal/abnormal. MPV (test code = 28138-3) 9.4 fL 9.5-12.9 L NRBC/100 WBC (test code = 4831008881) See_Comment [Automated me ssage] The system which generated this result transmitted reference range: 0.0 - 10.0 /100 WBCs. The reference range was not used to interpret this result as normal/abnormal. NRBC x10^3 (test code = 1809416649) <0.01 See_Comment [Automated messa ge] The system which generated this result transmitted reference range: 10*3/?L. The reference range was not used to interpret this result as normal/abnormal. GRAN MAT (NEUT) % (test code = 770-8) 59.8 % IMM GRAN % (test code = 9504906831) 0.40 % LYMPH % (test code = 736-9) 31.0 % MONO % (test code = 5905-5) 6.3 % EOS % (test code = 713-8) 2.0 % BASO % (test code = 706-2) 0.5 % GRAN MAT x10^3(ANC) (test code = 6182907248) 6.73 10*3/uL 1.88-7.09 IMM GRAN x10^3 (test code = 7281963171) 0.05 10*3/uL 0.00-0.06 LYMPH x10^3 (test code = 731-0) 3.50 10*3/uL 1.32-3.29 H MONO x10^3 (test code = 742-7) 0.71 10*3/uL 0.33-0.92 EOS x10^3 (test code = 711-2) 0.23 10*3/uL 0.03-0.39 BASO x10^3 (test code = 704-7) 0.06 10*3/uL 0.01-0.07 Lab Interpretation (test code = 76411-1) Abnormal [facility] Dqqv6027-41-19 01:45:00* Test Item Value Reference Range Interpretation Comme nts POCT PREG (test code = 1605) negatibe On board controls acceptable with C Line (test code = 3574) present POCT PREG LOT # (test code = 3575) [id number] POCT PREG TEST DATE ( test code = 3576) 09/04/2022 Lab Interpretation (test cod e = 48350-6) Normal [facility] [id number] 06:35:00* Test Item Value Reference Range Interpretation Comme nts POCT PREG (test code = 1605) negative On board controls acceptable with C Line (test code = 3574) present POCT PREG LOT # (test code = 3575) [id number] POCT PREG TEST DATE ( test code = 3576) Lab Interpretation (test cod e = 98785-8) [facility] K2943-04-14 09:09:55* Test Item Value Reference Range Interpretation Comments TROPONIN I (test code = 2362439318) 0.001 ng/mL See_Comment [Automated message] The system [...] of biotin. Lab Interpretation (test code = 78972-1) [facility]-NEQGI9836-78-84 07:23:51* Test Item Value Reference Range Interpretation Comments D-DIMER (test code = 0420761766) See_Comment [Automated message] The system which generated [...] a diagnosis. Lab Interpretation (test code = 46734-7) [facility]2021-[facility] 06:11:26* Test Item Value Reference Range Interpretation Comme nts LIPASE (test code = 5374499898) 155 U/L 0-220 Lab Interpretation (test cod e = 23154-0) [facility] I8402-97-26 06:06:05* Test Item Value Reference Range Interpretation Comments TROPONIN I (test code = 5269049521) 0.002 ng/mL See_Comment [Automated message] The system [...] of biotin. Lab Interpretation (test code = 01670-2) [facility] NTK-GJW9444-82-21 06:03:04* Test Item Value Reference Range Interpretation Comme nts NT-proBNP (test code = 7670268455) 19 pg/mL See_Comment [Automated message] The system which generated this result transmitted reference range: <=125. The reference range was not used to interpret this result as normal/abnormal. DARWIN (test code = DARWIN) Biotin has been reported to cause a negative bias, interpret results relative to patient's use of biotin. Lab Interpretation (test code = 43137-1) [facility]OL[facility] (82920)2021-05-28 05:54:25* Test Item Value Reference Range Interpretation Comme nts NA (test code = 9871947264) 136 mmol/L 135-145 K (test code = 7569646963) 3.2 mmol/L 3.5-5.0 L CL (test code = 9436507762) 109 mmol/L 98-108 H CO2 TOTAL (test code = 1166587374) 16 mmol/L 23-31 L AGAP (test code = 2974512995) 2-16 BUN (test code = 1933533901) 11 mg/dL 7-23 GLUCOSE (test code = 6621136510) 144 mg/dL 70-110 H CREATININE (test code = 5578526421) 0.84 mg/dL 0.50-1.04 TOTAL BILI (test code = 6228094881) 0.2 mg/dL 0.1-1.1 CALCIUM (test code = 2709950907) 9.4 mg/dL 8.6-10.6 T PROTEIN (test code = 8007232935) 6.9 g/dL 6.3-8.2 ALBUMIN (test code = 8691200229) 3.9 g/dL 3.5-5.0 ALK PHOS (test code = 6625084287) 106 U/L 34-122 ALTv (test code = 1742-6) 20 U/L 5-35 AST(SGOT) (test code = 2736564671) 17 U/L 13-40 eGFR (test code = 5767415682) mL/min/1.73m2 DARWIN (test code = DARWIN) Association [...] imaging tests). Lab Interpretation (test code = 09137-5) Abnormal [facility] WITH ESIU4600-06-84 05:40:06* Test Item Value Reference Range Interpretation Comme nts WBC (test code = 6690-2) See_Comment [[employer]] The system which generated this result transmitted reference range: 4.30 - 11.10 10*3/?L. The reference range was not used to interpret this result as normal/abnormal. RBC (test code = 789-8) See_Comment [[employer]] The system which generated this result transmitted [...] 33.3 g/dL 31.6-35.1 RDW-SD (test code = 88792-9) 39.7 fL 39.0-49.9 RDW-CV (test code = 788-0) 13.6 % 12.0-15.5 PLT (test code = 777-3) See_Comment [[employer]] The system which generated this result transmitted reference range: 166 - 358 10*3/?L. The reference range was not used to interpret this result as normal/abnormal. MPV (test code = 49297-8) 9.5 fL 9.5-12.9 NRBC/100 WBC (test code = 0238415884) See_Comment [Automated me ssage] The system which generated this result transmitted reference range: 0.0 - 10.0 /100 WBCs. The reference range was not used to interpret this result as normal/abnormal. NRBC x10^3 (test code = 0421346263) <0.01 See_Comment [Automated messa ge] The system which generated this result transmitted reference range: 10*3/?L. The reference range was not used to interpret this result as normal/abnormal. GRAN MAT (NEUT) % (test code = 770-8) 53.7 % IMM GRAN % (test code = [id number]) 0.50 % LYMPH % (test code = 736-9) 36.0 % MONO % (test code = 5905-5) 6.3 % EOS % (test code = 713-8) 2.8 % BASO % (test code = 706-2) 0.7 % GRAN MAT x10^3(ANC) (test code = [id number]) 5.38 10*3/uL 1.88-7.09 IMM GRAN x10^3 (test code = [id number]) 0.05 10*3/uL 0.00-0.06 LYMPH x10^3 (test code = 731-0) 3.60 10*3/uL 1.32-3.29 H MONO x10^3 (test code = 742-7) 0.63 10*3/uL 0.33-0.92 EOS x10^3 (test code = 711-2) 0.28 10*3/uL 0.03-0.39 BASO x10^3 (test code = 704-7) 0.07 10*3/uL 0.01-0.07 Lab Interpretation (test code = 68280-0) Abnormal [facility] [id number] 05:32:00* Test Item Value Reference Range Interpretation Comme nts POCT PREG (test code = 1605) negative On board controls acceptable with C Line (test code = 3574) present POCT PREG LOT # (test code = 3575) [id number] POCT PREG TEST DATE ( test code = 3576) 08/07/2022 Lab Interpretation (test cod e = 61816-6) [facility] [id number] 11:13:57* Test Item Value Reference Range Interpretation Comments TROPONIN I (test code = 3074056745) 0.002 ng/mL See_Comment [Automated message] The system [...] of biotin. Lab Interpretation (test code = 32068-1) Normal [facility] Metabolic Panel (NA, K, CL, CO2, GLUCOSE, BUN, CREATININE, CA)2021-04-08 11:04:34* Test Item Value Reference Range Interpretation Comme nts NA (test code = 6099696060) 140 mmol/L 135-145 K (test code = 1273227991) 3.6 mmol/L 3.5-5.0 CL (test code = 6219920591) 111 mmol/L 98-108 H CO2 TOTAL (test code = 0925567615) 22 mmol/L 23-31 L AGAP (test code = 9395042155) 2-16 BUN (test code = 0240528532) 10 mg/dL 7-23 GLUCOSE (test code = 8616677426) 104 mg/dL 70-110 CREATININE (test code = 1527121648) 0.70 mg/dL 0.50-1.04 CALCIUM (test code = 4682155778) 8.7 mg/dL 8.6-10.6 eGFR (test code = 0643098797) mL/min/1.73m2 DARWIN (test code = DARWIN) Association [...] imaging tests). Lab Interpretation (test code = 20706-6) Abnormal [facility] with Yvklihcduhqn0624-34-18 10:46:50* Test Item Value Reference Range Interpretation Comme nts WBC (test code = 6690-2) See_Comment [Automated [employer]] The system which generated this result transmitted reference range: 4.30 - 11.10 10*3/?L. The reference range was not used to interpret this result as normal/abnormal. RBC (test code = 789-8) See_Comment [Automated [employer]] The system which generated this result [...] 33.5 g/dL 31.6-35.1 RDW-SD (test code = 54265-5) 42.0 fL 39.0-49.9 RDW-CV (test code = 788-0) 14.1 % 12.0-15.5 PLT (test code = 777-3) See_Comment [Automated messa ge] The system which generated this result transmitted reference range: 166 - 358 10*3/?L. The reference range was not used to interpret this result as normal/abnormal. MPV (test code = 81992-8) 10.0 fL 9.5-12.9 NRBC/100 WBC (test code = 6630799979) See_Comment [Automated me ssage] The system which generated this result transmitted reference range: 0.0 - 10.0 /100 WBCs. The reference range was not used to interpret this result as normal/abnormal. NRBC x10^3 (test code = 5508397599) <0.01 See_Comment [Automated me ssage] The system which generated this result transmitted reference range: 10*3/?L. The reference range was not used to interpret this result as normal/abnormal. GRAN MAT (NEUT) % (test code = 770-8) 59.1 % IMM GRAN % (test code = 6965066923) 0.70 % LYMPH % (test code = 736-9) 28.2 % MONO % (test code = 5905-5) 8.5 % EOS % (test code = 713-8) 3.0 % BASO % (test code = 706-2) 0.5 % GRAN MAT x10^3(ANC) (test code = 9407267420) 3.61 10*3/uL 1.88-7.09 IMM GRAN x10^3 (test code = 1348381076) 0.04 10*3/uL 0.00-0.06 LYMPH x10^3 (test code = 731-0) 1.72 10*3/uL 1.32-3.29 MONO x10^3 (test code = 742-7) 0.52 10*3/uL 0.33-0.92 EOS x10^3 (test code = 711-2) 0.18 10*3/uL 0.03-0.39 BASO x10^3 (test code = 704-7) 0.03 10*3/uL 0.01-0.07 [facility] [id number] 05:54:48* Test Item Value Reference Range Interpretation Comments TROPONIN I (test code = 6518877319) 0.002 ng/mL See_Comment [Automated message] The system [...] of biotin. Lab Interpretation (test code = 48441-0) [facility]fieldThyroid Stimulating Hormone (TSH)2021-04-08 00:51:16* Test Item Value Reference Range Interpretation Comme nts TSH (test code = 2126912942) See_Comment [Automated [employer]] The system which generated this result transmitted reference range: 0.45 - 4.70 mIU/L. The reference range was not used to interpret this result as normal/abnormal. Lab Interpretation (test code = 35650-5) Normal [facility]fieldGlycosylated Hemoglobin (A1C)2021-04-08 00:26:53* Test Item Value Reference Range Interpretation Comme nts HGB A1C (test code = 4548-4) 5.5 % 4.0-5.7 DARWIN (test code = DARWIN) Reference RangesNormal: <5.7%Prediabetes: 5.7 - 6.4%Diabetes: > 6.5% Lab Interpretation (test code = 62076-6) [facility]field[facility]id [facility] (Total Cholesterol, Triglycerides, HDL)2021-04-08 00:20:12* Test Item Value Reference Range Interpretation Comme nts CHOL (test code = 8783132964) 223 mg/dL 120-200 H HDL (test code = 8302492531) 35 mg/dL >50 L HDLC RATIO (test code = 7671599122) See_Comment H [Automated [employer]] The system which generated this result transmitted reference range: <=4.5. The reference range was not used to interpret this result as normal/abnormal. TRIG (test code = 6625441381) 223 mg/dL 30-170 H LDL CHOL (test code = 69912-2) 143 mg/dL See_Comment [Automated [employer]] The system which generated this result transmitted reference range: <=160. The reference range was not used to interpret this result as normal/abnormal. VLDL (test code = 2718896950) 45 mg/dL 5-60 Lab Interpretation (test code = 08349-7) [facility]normal [facility]fieldMagnesium Xiite5714-02-12 00:20:07* Test Item Value Reference Range Interpretation Comme nts MAGNESIUM (test code = 5049442486) 1.7 mg/dL 1.7-2.4 Lab Interpretation (test cod e = 94619-0) [facility]. METABOLIC PANEL (19920)2021-04-07 23:04:13* Test Item Value Reference Range Interpretation Comme nts NA (test code = 3707034008) 139 mmol/L 135-145 K (test code = 6498217036) 3.4 mmol/L 3.5-5.0 L CL (test code = 6578779461) 109 mmol/L 98-108 H CO2 TOTAL (test code = 3559211369) 22 mmol/L 23-31 L AGAP (test code = 4118888780) 2-16 BUN (test code = 0300843842) 10 mg/dL 7-23 GLUCOSE (test code = 9497741755) 97 mg/dL 70-110 CREATININE (test code = 4555501235) 0.84 mg/dL 0.50-1.04 TOTAL BILI (test code = 2979840555) 0.3 mg/dL 0.1-1.1 CALCIUM (test code = 3494373033) 9.2 mg/dL 8.6-10.6 T PROTEIN (test code = 4723464863) 6.6 g/dL 6.3-8.2 ALBUMIN (test code = 1079832195) 3.8 g/dL 3.5-5.0 ALK PHOS (test code = 2384166549) 69 U/L 34-122 ALTv (test code = 1742-6) 18 U/L 5-35 AST(SGOT) (test code = 0503298175) 19 U/L 13-40 eGFR (test code = 1367289472) mL/min/1.73m2 DARWIN (test code = DARWIN) Association [...] imaging tests). Lab Interpretation (test code = 77535-4) [facility]fieldTR[facility]IN [id number] 22:33:04* Test Item Value Reference Range Interpretation Comments TROPONIN I (test code = 6101982738) 0.001 ng/mL See_Comment [Automated message] The system [...] of biotin. Lab Interpretation (test code = 81882-2) Normal [facility]fieldN-TERMINAL QRL-LBC5845-04-01 22:30:05* Test Item Value Reference Range Interpretation Comme [facility] NT-proBNP (test code = 3419027811) 352 pg/mL See_Comment H [Automated message] The system which generated this result transmitted reference range: <=125. The reference range was not used to interpret this result as normal/abnormal. DARWIN (test code = DARWIN) Biotin has been reported to cause a negative bias, interpret results relative to patient's use of biotin. Lab Interpretation (test code = 43285-9) [facility]normal [facility]fieldACTIVATED PARTIAL THRMPLAS [id number] 22:28:48* Test Item Value Reference Range Interpretation [...] 30 seconds. Lab Interpretation (test code = 09548-8) Normal [facility]fieldPROTHROMBIN TIME / [id number] 22:26:44* Test Item Value Reference Range Interpretation Comme nts PROTIME PATIENT (test code = 5964-2) See_Comment [Automated [employer]] The system which generated this result transmitted reference range: 12.0 - 14.7 Seconds. The reference range was not used to interpret this result as normal/abnormal. INR (test code = 6301-6) Normal INR <1.1; Warfarin Therapeutic range 2.0 to 3.0 or 2.5 to 3.5, depending upon the indications. Lab Interpretation (test code = 37524-5) [facility]fieldL[facility]ASE2021-10-01 22:20:05* Test Item Value Reference Range Interpretation Comme [facility] LIPASE (test code = 4811280678) 66 U/L 0-220 Lab Interpretation (test cod e = 71363-5) Normal [facility]fieldCBC WITH [id number] 22:07:01* Test Item Value Reference Range Interpretation Comme nts WBC (test code = 6690-2) See_Comment [Automated [employer]] The system which generated this result transmitted reference range: 4.30 - 11.10 10*3/?L. The reference range was not used to interpret this result as normal/abnormal. RBC (test code = 789-8) See_Comment [Automated [employer]] The system which generated this result transmitted [...] 33.2 g/dL 31.6-35.1 RDW-SD (test code = 70447-8) 41.6 fL 39.0-49.9 RDW-CV (test code = 788-0) 14.1 % 12.0-15.5 PLT (test code = 777-3) See_Comment [Automated messa ge] The system which generated this result transmitted reference range: 166 - 358 10*3/?L. The reference range was not used to interpret this result as normal/abnormal. MPV (test code = 36350-6) 9.2 fL 9.5-12.9 L NRBC/100 WBC (test code = 6648630789) See_Comment [Automated [employer]] The system which generated this result transmitted reference range: 0.0 - 10.0 /100 WBCs. The reference range was not used to interpret this result as normal/abnormal. NRBC x10^3 (test code = 1166745301) <0.01 See_Comment [Automated messa ge] The system which generated this result transmitted reference range: 10*3/?L. The reference range was not used to interpret this result as normal/abnormal. GRAN MAT (NEUT) % (test code = 770-8) 61.6 % IMM GRAN % (test code = 8628963322) 0.60 % LYMPH % (test code = 736-9) 28.7 % MONO % (test code = 5905-5) 4.9 % EOS % (test code = 713-8) 3.7 % BASO % (test code = 706-2) 0.5 % GRAN MAT x10^3(ANC) (test code = 8512612766) 6.24 10*3/uL 1.88-7.09 IMM GRAN x10^3 (test code = 3139451456) 0.06 10*3/uL 0.00-0.06 LYMPH x10^3 (test code = 731-0) 2.90 10*3/uL 1.32-3.29 MONO x10^3 (test code = 742-7) 0.50 10*3/uL 0.33-0.92 EOS x10^3 (test code = 711-2) 0.37 10*3/uL 0.03-0.39 BASO x10^3 (test code = 704-7) 0.05 10*3/uL 0.01-0.07 Lab Interpretation (test code = 28345-2) [facility]2021-[facility] 08:49:55* Test Item Value Reference Range Interpretation Comme nts APPEARANCE (test code = 3696786959) Cloudy Clear A COLOR (test code = 0083455932) Yellow Yellow PH (test code = 2868789441) 4.8-8.0 SP GRAVITY (test code = 8990582643) 1.003-1.030 GLU U QUAL (test code = 0228012816) Normal Normal BLOOD (test code = 8416405286) Negative Negative KETONES (test code = 3224468501) Negative Negative PROTEIN (test code = 2887-8) Negative Negative UROBILIN (test code = 9603861512) Normal Normal BILIRUBIN (test code = 0835114346) 2 mg/dL Negative A NITRITE (test code = 3578556729) Negative Negative LEUK MARC (test code = 1390680277) 75/uL Negative A RBC/HPF (test code = 0853087406) See_Comment H [Automated messa ge] The system which generated this result transmitted reference range: 0 - 3 HPF. The reference range was not used to interpret this result as normal/abnormal. WBC/HPF (test code = 0810978817) See_Comment H [Automated messa ge] The system which generated this result transmitted reference range: 0 - 5 HPF. The reference range was not used to interpret this result as normal/abnormal. BACTERIA (test code = 3401783913) Moderate Negative A MUCOUS (test code = 6961902489) Slight Negative LPF A SQ EPITH (test code = 4720896623) HPF YEAST BUD (test code = 3630571941) See_Comment H [Automated messa ge] The system which generated this result transmitted reference range: <=1 HPF. The reference range was not used to interpret this result as normal/abnormal. Ictotest (test code = 4324010948) Negative Lab Interpretation (test code = 62157-2) Abnormal [facility]. METABOLIC PANEL (62649)2021-01-12 08:49:44* Test Item Value Reference Range Interpretation Comme nts NA (test code = 9983735393) 137 mmol/L 135-145 K (test code = 1675202219) 4.6 mmol/L 3.5-5.0 CL (test code = 2009710221) 108 mmol/L 98-108 CO2 TOTAL (test code = 3881845420) 21 mmol/L 23-31 L AGAP (test code = 9525848264) 2-16 BUN (test code = 7733211183) 19 mg/dL 7-23 GLUCOSE (test code = 8873194802) 107 mg/dL 70-110 CREATININE (test code = 7348887240) 0.63 mg/dL 0.50-1.04 TOTAL BILI (test code = 4980924643) 0.4 mg/dL 0.1-1.1 CALCIUM (test code = 4265842852) 9.2 mg/dL 8.6-10.6 T PROTEIN (test code = 2551285432) 7.4 g/dL 6.3-8.2 ALBUMIN (test code = 2889324700) 4.2 g/dL 3.5-5.0 ALK PHOS (test code = 1180810995) 179 U/L 34-122 H ALTv (test code = 1742-6) 113 U/L 5-35 H AST(SGOT) (test code = 7085458845) 38 U/L 13-40 eGFR (test code = 8084505350) mL/min/1.73m2 DARWIN (test code = DARWIN) Association [...] imaging tests). Lab Interpretation (test code = 67869-4) Abnormal [facility] WITH [id number] 08:11:02* Test Item Value Reference Range Interpretation Comme nts WBC (test code = 6690-2) See_Comment H [Automated [employer]] The system which generated this result transmitted reference range: 4.30 - 11.10 10*3/?L. The reference range was not used to interpret this result as normal/abnormal. RBC (test code = 789-8) See_Comment [Automated [employer]] The system which generated this result [...] 33.3 g/dL 31.6-35.1 RDW-SD (test code = 51761-2) 41.6 fL 39.0-49.9 RDW-CV (test code = 788-0) 14.0 % 12.0-15.5 PLT (test code = 777-3) See_Comment [Automated [employer]] The system which generated this result transmitted reference range: 166 - 358 10*3/?L. The reference range was not used to interpret this result as normal/abnormal. MPV (test code = 08540-7) 9.5 fL 9.5-12.9 NRBC/100 WBC (test code = 5429973164) See_Comment [Automated [employer]] The system which generated this result transmitted reference range: 0.0 - 10.0 /100 WBCs. The reference range was not used to interpret this result as normal/abnormal. NRBC x10^3 (test code = 7680881840) <0.01 See_Comment [Automated messa ge] The system which generated this result transmitted reference range: 10*3/?L. The reference range was not used to interpret this result as normal/abnormal. GRAN MAT (NEUT) % (test code = 770-8) 68.0 % IMM GRAN % (test code = 1461375377) 0.80 % LYMPH % (test code = 736-9) 23.6 % MONO % (test code = 5905-5) 5.1 % EOS % (test code = 713-8) 2.1 % BASO % (test code = 706-2) 0.4 % GRAN MAT x10^3(ANC) (test code = 9371454330) 8.86 10*3/uL 1.88-7.09 H IMM GRAN x10^3 (test code = 4425560008) 0.11 10*3/uL 0.00-0.06 H LYMPH x10^3 (test code = 731-0) 3.07 10*3/uL 1.32-3.29 MONO x10^3 (test code = 742-7) 0.66 10*3/uL 0.33-0.92 EOS x10^3 (test code = 711-2) 0.27 10*3/uL 0.03-0.39 BASO x10^3 (test code = 704-7) 0.05 10*3/uL 0.01-0.07 Lab Interpretation (test code = 07120-8) [facility] VDSM3898-03-19 08:02:00* Test Item Value Reference Range Interpretation Comme nts POCT PREG (test code = 1605) negative On board controls acceptable with C Line (test code = 3574) positive POCT PREG LOT # (test code = 3575) [id number] POCT PREG TEST DATE ( test code = 3576) 07/07/2022 Lab Interpretation (test cod e = 51738-9) [facility]fieldTR[facility] [id number] 01:55:05* Test Item Value Reference Range Interpretation Comme nts TROPONIN I (test code = 4429010924) 0.000 ng/mL See_Comment [Automated message] The system [...] biotin. ? Lab Interpretation (test code = 27762-2) Normal [facility] 1 Ptlz5299-92-28 23:41:46No radiographic evidence of an acute cardiopulmonary process. RL: 2109AFC: [id number] EXAM: XR CHEST 1 VW ORDERING PROVIDER: BAL HASSAN HISTORY: CP COMPARISON: 12/04/2020 TECHNIQUE: Portable AP radiograph of the chest. FINDINGS: Overlying monitoring leads. There is no focal consolidation,pneumothorax or appreciable pleural effusion. The card iomediastinalsilhouette is within normal limits. Trachea is midline. No acute osseousabnormality identified. Demb, Radiant Results Inft User - 12/10/2020 6:42 PM CDT EXAM: XR CHEST 1 VWORDERING PROVIDER: BAL MORALESHISTORY: CP COMPARISON: 12/04/2020 TECHNIQUE: Portable AP radiograph of the chest.FINDINGS: Overlying monitoring leads. There is no focal consolidation,pneumothorax or appreciable pleural effusion. The cardiomediastinalsilhouette is within normal limits. Trachea is midline. No acute osseousabnormality identified.IMPRESSIONNo radiographic evidence of an acute cardiopulmonary process.RL: 2109AFC: 51987 [facility] [id number] 23:07:21* Test Item Value Reference Range Interpretation Comme nts TROPONIN I (test code = 6609318004) 0.000 ng/mL See_Comment [Automated message] The system [...] biotin. ? Lab Interpretation (test code = 44408-8) Normal [facility] XUO-WLT4559-65-05 23:04:20* Test Item Value Reference Range Interpretation Comme nts NT-proBNP (test code = 1077045388) 14 pg/mL See_Comment [Automated message] The system which generated this result transmitted reference range: <=125. The reference range was not used to interpret this result as normal/abnormal. DARWIN (test code = DARWIN) Biotin has been reported to cause a negative bias, interpret results relative to patient's use of biotin. Lab Interpretation (test code = 73893-7) [facility]field[facility] (ALB, T.PRO, BILI T, BU/BC, ALT, AST, ALK PHOS)2020-12-10 22:58:16* Test Item Value Reference Range Interpretation Comme nts TOTAL BILI (test code = 0620569626) 0.5 mg/dL 0.1-1.1 BILI UNCON (test code = 4745126793) 0.3 mg/dL 0.1-1.1 BILI CONJ (test code = 3449895133) 0.0 mg/dL 0.0-0.3 T PROTEIN (test code = 6475067981) 8.1 g/dL 6.3-8.2 ALBUMIN (test code = 8936295720) 4.7 g/dL 3.5-5.0 ALK PHOS (test code = 9854389447) 104 U/L 34-122 ALTv (test code = 1742-6) 18 U/L 5-35 AST(SGOT) (test code = 4202797958) 23 U/L 13-40 Lab Interpretation (test cod e = 21117-7) [facility] (NA, K, CL, CO2, GLUCOSE, BUN, CREATININE, CA)2020-12-10 22:57:56* Test Item Value Reference Range Interpretation Comme nts NA (test code = 3952476159) 135 mmol/L 135-145 K (test code = 3955789927) 3.7 mmol/L 3.5-5.0 CL (test code = 6956259608) 105 mmol/L 98-108 CO2 TOTAL (test code = 2424191278) 18 mmol/L 23-31 L AGAP (test code = 5627125753) 2-16 BUN (test code = 4150479731) 14 mg/dL 7-23 GLUCOSE (test code = 2446463324) 108 mg/dL 70-110 CREATININE (test code = 3372943247) 0.56 mg/dL 0.50-1.04 CALCIUM (test code = 8866710046) 9.8 mg/dL 8.6-10.6 eGFR (test code = 3437265337) mL/min/1.73m2 DARWIN (test code = DARWIN) Association [...] imaging tests). Lab Interpretation (test code = 48481-6) [facility]normal [facility] MansfieldLipase Wnppm7197-35-71 22:57:56* Test Item Value Reference Range Interpretation Comme nts LIPASE (test code = 2504258266) 122 U/L 0-220 Lab Interpretation (test cod e = 30611-4) Normal [facility]fieldD-SRTBX6086-21-94 22:52:34* Test Item Value Reference Range Interpretation Comments D-DIMER (test code = 9797291733) See_Comment [Automated message] The system which generated [...] a diagnosis. Lab Interpretation (test code = 02932-1) Normal [facility]fieldUrinalysis2021-06-05 22:52:29* Test Item Value Reference Range Interpretation Comme nts APPEARANCE (test code = 2268194102) Hazy Clear A COLOR (test code = 9092776774) Yellow Yellow PH (test code = 3032007886) 4.8-8.0 SP GRAVITY (test code = 5593320355) 1.003-1.030 GLU U QUAL (test code = 9191705714) Normal Normal BLOOD (test code = 4431677859) Negative Negative KETONES (test code = 8426344289) Negative Negative PROTEIN (test code = 2887-8) Negative Negative UROBILIN (test code = 9839316899) Normal Normal BILIRUBIN (test code = 4274065593) 2 mg/dL Negative A NITRITE (test code = 9990448361) Negative Negative LEUK MARC (test code = 5692113436) 25/uL Negative A RBC/HPF (test code = 8032045906) See_Comment [Automated [employer]] The system which generated this result transmitted reference range: 0 - 3 HPF. The reference range was not used to interpret this result as normal/abnormal. WBC/HPF (test code = 8708593996) See_Comment [Automated [employer]] The system which generated this result transmitted reference range: 0 - 5 HPF. The reference range was not used to interpret this result as normal/abnormal. BACTERIA (test code = 3475544755) Few Negative A MUCOUS (test code = 0222291998) Slight Negative LPF A SQ EPITH (test code = 7701783703) HPF Lab Interpretation (test code = 47733-2) Abnormal [facility] with Jzniuomndags4144-57-48 22:45:56* Test Item Value Reference Range Interpretation [...] 33.5 g/dL 31.6-35.1 RDW-SD (test code = 62613-2) 40.5 fL 39.0-49.9 RDW-CV (test code = 788-0) 13.3 % 12.0-15.5 PLT (test code = 777-3) See_Comment H [Automated message] The system which generated this result transmitted reference range: 166 - 358 10*3/?L. The reference range was not used to interpret this result as normal/abnormal. MPV (test code = 18230-5) 9.2 fL 9.5-12.9 L NRBC/100 WBC (test code = 7164045935) See_Comment [Automated message] The system which generated this result transmitted reference range: 0.0 - 10.0 /100 WBCs. The reference range was not used to interpret this result as normal/abnormal. NRBC x10^3 (test code = 3539934872) <0.01 See_Comment [Automated message] The system which generated this result transmitted reference range: 10*3/?L. The reference range was not used to interpret this result as normal/abnormal. GRAN MAT (NEUT) % (test code = 770-8) 73.4 % IMM GRAN % (test code = 5006093652) 0.50 % LYMPH % (test code = 736-9) 17.5 % MONO % (test code = 5905-5) 6.5 % EOS % (test code = 713-8) 1.6 % BASO % (test code = 706-2) 0.5 % GRAN MAT x10^3(ANC) (test code = 6067183164) 10.21 10*3/uL 1.88-7.09 H IMM GRAN x10^3 (test code = 5338055077) 0.07 10*3/uL 0.00-0.06 H LYMPH x10^3 (test code = 731-0) 2.44 10*3/uL 1.32-3.29 MONO x10^3 (test code = 742-7) 0.90 10*3/uL 0.33-0.92 EOS x10^3 (test code = 711-2) 0.22 10*3/uL 0.03-0.39 BASO x10^3 (test code = 704-7) 0.07 10*3/uL 0.01-0.07 Lab Interpretation (test code = 00081-4) [facility] Ybxf9131-08-75 22:32:00* Test Item Value Reference Range Interpretation Comme nts POCT PREG (test code = 1605) negative On board controls acceptable with C Line (test code = 3574) present POCT PREG LOT # (test code = 3575) [id number] POCT PREG TEST DATE ( test code = 3576) 06/06/2022 Lab Interpretation (test cod e = 93698-0) [facility]fieldUrinalysis2021-05-30 21:34:43* Test Item Value Reference Range Interpretation Comme nts APPEARANCE (test code = 7910207095) Clear Clear COLOR (test code = 4368241783) Yellow Yellow PH (test code = 4570276610) 4.8-8.0 SP GRAVITY (test code = 9100956676) 1.003-1.030 GLU U QUAL (test code = 3451360495) Normal Normal BLOOD (test code = 5370723486) Negative Negative KETONES (test code = 7345832871) Negative Negative PROTEIN (test code = 2887-8) Negative Negative UROBILIN (test code = 9365232645) Normal Normal BILIRUBIN (test code = 0353172537) Negative Negative NITRITE (test code = 3738075476) Negative Negative LEUK MARC (test code = 6283141343) Negative Negative RBC/HPF (test code = 2351469292) See_Comment [Automated [employer]] The system which generated this result transmitted reference range: 0 - 3 HPF. The reference range was not used to interpret this result as normal/abnormal. WBC/HPF (test code = 9060092465) <1 See_Comment [Automated [employer]] The system which generated this result transmitted reference range: 0 - 5 HPF. The reference range was not used to interpret this result as normal/abnormal. BACTERIA (test code = 2391616306) Negative Negative MUCOUS (test code = 3167284504) Slight Negative LPF A SQ EPITH (test code = 9686965837) HPF Lab Interpretation (test code = 19662-1) [facility] Fwkq3974-76-81 21:18:00* Test Item Value Reference Range Interpretation Comme nts POCT PREG (test code = 1605) negative On board controls acceptable with C Line (test code = 3574) present POCT PREG LOT # (test code = 3575) [id number] POCT PREG TEST DATE ( test code = 3576) 06/06/2022 Lab Interpretation (test cod e = 58440-1) [facility]fieldXR ANKLE 3+ VW VERR2939-63-72 21:11:00No acute bony abnormality. Preliminary Report Dictated [...] study and agree with the abovereport.[facility]field[facility]rop[facility] [id number] 20:59:44* Test Item Value Reference Range Interpretation Comme nts TROPONIN I (test code = 7294587205) 0.000 ng/mL See_Comment [Automated message] The system [...] biotin. ? Lab Interpretation (test code = 61347-9) [facility]field[facility] [id number] 20:48:20* Test Item Value Reference Range Interpretation Comme nts LIPASE (test code = 1154311549) 96 U/L 0-220 Lab Interpretation (test cod e = 17609-7) Normal [facility] Metabolic Panel (NA, K, CL, CO2, GLUCOSE, BUN, CREATININE, CA)2020-12-04 20:48:20* Test Item Value Reference Range Interpretation Comme nts NA (test code = 9012802664) 138 mmol/L 135-145 K (test code = 0432671833) 3.8 mmol/L 3.5-5.0 CL (test code = 8710818007) 108 mmol/L 98-108 CO2 TOTAL (test code = 0819325906) 21 mmol/L 23-31 L AGAP (test code = 6779412841) 2-16 BUN (test code = 9762912616) 13 mg/dL 7-23 GLUCOSE (test code = 7048971217) 107 mg/dL 70-110 CREATININE (test code = 8702246164) 0.66 mg/dL 0.50-1.04 CALCIUM (test code = 3537851501) 9.3 mg/dL 8.6-10.6 eGFR (test code = 9000138515) mL/min/1.73m2 DARWIN (test code = DARWIN) Association [...] imaging tests). Lab Interpretation (test code = 68224-2) [facility]field[facility] (ALB, T.PRO, BILI T, BU/BC, ALT, AST, ALK PHOS)2020-12-04 20:48:20* Test Item Value Reference Range Interpretation Comme nts TOTAL BILI (test code = 3163940460) 0.3 mg/dL 0.1-1.1 BILI UNCON (test code = 4689430391) 0.1 mg/dL 0.1-1.1 BILI CONJ (test code = 1683797309) 0.0 mg/dL 0.0-0.3 T PROTEIN (test code = 9748033334) 7.0 g/dL 6.3-8.2 ALBUMIN (test code = 8615807864) 4.0 g/dL 3.5-5.0 ALK PHOS (test code = 6027816921) 114 U/L 34-122 ALTv (test code = 1742-6) 30 U/L 5-35 AST(SGOT) (test code = 6493771614) 23 U/L 13-40 Lab Interpretation (test cod e = 11117-7) Normal [facility]fieldCBC with Drcpzetlfkec8432-32-29 20:35:01* Test Item Value Reference Range Interpretation Comme nts WBC (test code = 6690-2) See_Comment [Automated [employer]] The system which generated this result transmitted reference range: 4.30 - 11.10 10*3/?L. The reference range was not used to interpret this result as normal/abnormal. RBC (test code = 789-8) See_Comment [Automated [employer]] The system which generated this result transmitted [...] 34.0 g/dL 31.6-35.1 RDW-SD (test code = 91881-7) 39.8 fL 39.0-49.9 RDW-CV (test code = 788-0) 12.9 % 12.0-15.5 PLT (test code = 777-3) See_Comment [Automated messa ge] The system which generated this result transmitted reference range: 166 - 358 10*3/?L. The reference range was not used to interpret this result as normal/abnormal. MPV (test code = 14357-5) 9.3 fL 9.5-12.9 L NRBC/100 WBC (test code = 1441946278) See_Comment [Automated [employer] ssage] The system which generated this result transmitted reference range: 0.0 - 10.0 /100 WBCs. The reference range was not used to interpret this result as normal/abnormal. NRBC x10^3 (test code = 9327469917) <0.01 See_Comment [Automated messa ge] The system which generated this result transmitted reference range: 10*3/?L. The reference range was not used to interpret this result as normal/abnormal. GRAN MAT (NEUT) % (test code = 770-8) 71.5 % IMM GRAN % (test code = 5319759437) 0.30 % LYMPH % (test code = 736-9) 19.8 % MONO % (test code = 5905-5) 6.2 % EOS % (test code = 713-8) 1.8 % BASO % (test code = 706-2) 0.4 % GRAN MAT x10^3(ANC) (test code = 4814825671) 6.79 10*3/uL 1.88-7.09 IMM GRAN x10^3 (test code = 6670966286) 0.03 10*3/uL 0.00-0.06 LYMPH x10^3 (test code = 731-0) 1.88 10*3/uL 1.32-3.29 MONO x10^3 (test code = 742-7) 0.59 10*3/uL 0.33-0.92 EOS x10^3 (test code = 711-2) 0.17 10*3/uL 0.03-0.39 BASO x10^3 (test code = 704-7) 0.04 10*3/uL 0.01-0.07 Lab Interpretation (test code = 72604-1) [facility] (URINE)2020-11-04 02:54:38* Test Item Value Reference Range Interpretation Comme nts AMPHET (test code = 5374551084) Negative Negative Cocaine Metabolite (test code = 9089946868) Negative Negative OPIATES (test code = 9128591893) Presumptive Positive Negative A THC (test code = 3425954029) Negative Negative DARWIN (test code = DARWIN) Urine Drug Cutoff Ranges Amphetamine: ? 1,000 ng/mLCocaine: ? 150 ng/mLOpiates: ? 300 ng/mLCannabinoids: ?50 ng/mL The results are to be used only for medical (i.e., treatment) purposes. Unconfirmed screening results must not be used for non-medical purposes (e.g., employment testing, legal testing). Lab Interpretation (test code = 33449-2) [facility]normal [facility]fieldTROPONIN [id number] 02:51:11* Test Item Value Reference Range Interpretation Comme nts TROPONIN I (test code = 0069604977) 0.001 ng/mL See_Comment [Automated message] The system [...] biotin. ? Lab Interpretation (test code = 95913-4) Normal [facility]fieldaPTT2021-04-30 02:41:10* Test Item Value Reference Range Interpretation [...] 30 seconds. Lab Interpretation (test code = 39880-1) Normal [facility]ALYSIS2021-04-30 02:40:40* Test Item Value Reference Range Interpretation Comme nts APPEARANCE (test code = 6348856272) Clear Clear COLOR (test code = 5587177285) Yellow Yellow PH (test code = 3304785634) 4.8-8.0 SP GRAVITY (test code = 7532028465) 1.003-1.030 GLU U QUAL (test code = 9320694284) Normal Normal BLOOD (test code = 2872403155) Negative Negative KETONES (test code = 4726821350) Negative Negative PROTEIN (test code = 2887-8) Negative Negative UROBILIN (test code = 3574032707) Normal Normal BILIRUBIN (test code = 5285563653) Negative Negative NITRITE (test code = 1496730579) Negative Negative LEUK MARC (test code = 0554210974) Negative Negative RBC/HPF (test code = 9208566677) <1 See_Comment [Automated messa ge] The system which generated this result transmitted reference range: 0 - 3 HPF. The reference range was not used to interpret this result as normal/abnormal. WBC/HPF (test code = 7707482294) <1 See_Comment [Automated messa ge] The system which generated this result transmitted reference range: 0 - 5 HPF. The reference range was not used to interpret this result as normal/abnormal. BACTERIA (test code = 2886401714) Negative Negative MUCOUS (test code = 8791137124) Slight Negative LPF A SQ EPITH (test code = 0097079430) HPF Lab Interpretation (test code = 83690-6) Abnormal [facility] [place]. METABOLIC PANEL (52357)2020-11-04 02:40:09* Test Item Value Reference Range Interpretation Comme nts NA (test code = 3305553931) 141 mmol/L 135-145 K (test code = 2957401589) 4.1 mmol/L 3.5-5.0 CL (test code = 4121093274) 110 mmol/L 98-108 H CO2 TOTAL (test code = 7364784782) 22 mmol/L 23-31 L AGAP (test code = 2638995811) 2-16 BUN (test code = 6667898396) 15 mg/dL 7-23 GLUCOSE (test code = 4864408119) 115 mg/dL 70-110 H CREATININE (test code = 5812986095) 0.69 mg/dL 0.50-1.04 TOTAL BILI (test code = 8367329595) 0.2 mg/dL 0.1-1.1 CALCIUM (test code = 4042460332) 9.2 mg/dL 8.6-10.6 T PROTEIN (test code = 3326150701) 6.8 g/dL 6.3-8.2 ALBUMIN (test code = 5920130091) 4.1 g/dL 3.5-5.0 ALK PHOS (test code = 2839407180) 69 U/L 34-122 ALTv (test code = 1742-6) 20 U/L 5-35 AST(SGOT) (test code = 2291272555) 23 U/L 13-40 eGFR (test code = 1631280244) mL/min/1.73m2 DARWIN (test code = DARWIN) Association [...] imaging tests). Lab Interpretation (test code = 02496-9) [facility]fieldLIPASE, [id number] 02:39:49* Test Item Value Reference Range Interpretation Comme [facility] LIPASE (test code = 8381845802) 117 U/L 0-220 Lab Interpretation (test cod e = 26313-1) Normal [facility]fieldPROTHROMBIN TIME / [id number] 02:39:08* Test Item Value Reference Range Interpretation Comme [facility] PROTIME PATIENT (test code = 5964-2) See_Comment [Automated [employer]] The system which generated this result transmitted reference range: 12.0 - 14.7 Seconds. The reference range was not used to interpret this result as normal/abnormal. INR (test code = 6301-6) Normal INR <1.1; Warfarin Therapeutic range 2.0 to 3.0 or 2.5 to 3.5, depending upon the indications. Lab Interpretation (test code = 99842-1) Normal [facility]fieldCB WITH [id number] 02:30:11* Test Item Value Reference Range Interpretation [...] 32.8 g/dL 31.6-35.1 RDW-SD (test code = 19637-8) 44.1 fL 39.0-49.9 RDW-CV (test code = 788-0) 13.8 % 12.0-15.5 PLT (test code = 777-3) See_Comment [Automated messa ge] The system which generated this result transmitted reference range: 166 - 358 10*3/?L. The reference range was not used to interpret this result as normal/abnormal. MPV (test code = 94081-0) 9.6 fL 9.5-12.9 NRBC/100 WBC (test code = 2584956143) See_Comment [Automated [employer]] The system which generated this result transmitted reference range: 0.0 - 10.0 /100 WBCs. The reference range was not used to interpret this result as normal/abnormal. NRBC x10^3 (test code = 0542334333) <0.01 See_Comment [Automated messa ge] The system which generated this result transmitted reference range: 10*3/?L. The reference range was not used to interpret this result as normal/abnormal. GRAN MAT (NEUT) % (test code = 770-8) 65.9 % IMM GRAN % (test code = 0607303756) 0.70 % LYMPH % (test code = 736-9) 25.9 % MONO % (test code = 5905-5) 5.1 % EOS % (test code = 713-8) 2.0 % BASO % (test code = 706-2) 0.4 % GRAN MAT x10^3(ANC) (test code = 9260763467) 8.82 10*3/uL 1.88-7.09 H IMM GRAN x10^3 (test code = 6491369364) 0.09 10*3/uL 0.00-0.06 H LYMPH x10^3 (test code = 731-0) 3.46 10*3/uL 1.32-3.29 H MONO x10^3 (test code = 742-7) 0.68 10*3/uL 0.33-0.92 EOS x10^3 (test code = 711-2) 0.27 10*3/uL 0.03-0.39 BASO x10^3 (test code = 704-7) 0.05 10*3/uL 0.01-0.07 Lab Interpretation (test code = 31067-5) [facility]OVID[facility] (ID NOW RAPID TESTING)2020-09-17 16:56:05* Test Item Value Reference Range Interpretation Comme nts SARS-CoV-2 Rapid ID NOW (test code = 08589-4) Not Detected Not Detected DARWIN (test code = DARWIN) ID NOW COVID-19 As say is an isothermal nucleic acid amplification test intended for the qualitative detection of nucleic acid from SARS-CoV-2 viral RNA in nasopharyngeal (CARRIER BLOWER) specimens. It is used under Emergency Use [...] clinically indicated. Lab Interpretation (test code = 62857-1) Normal [facility]fieldRAPID STREP SCREEN FOR GROUP [id number] 16:54:09* Test Item Value Reference Range Interpretation Comme nts Streptococcus pyogenes (grou p A) antigen (test code = 44935-0) Negative Negative Lab Interpretation (test cod e = 59793-0) Normal [facility]fieldXR [facility] 3+ VW [id number] 07:29:48 Impression: No acute fracture or dislocation. RL: 2824AFC: 06454 End of Report Exam: Left Hand, 09/07/2020 [...] swelling.IMPRESSIONImpression: No acute fracture or dislocation.RL: 2824AFC: 06854Hrz of Report [facility] 2 VW [id number] 07:28:55No acute abnormality of the left forearm. RL: 6200AFC: 97074 Patient name: CHARITY MONROYOB: 1980 40 years [...] acute abnormality of the left forearm.RL: 6200AF: 41254 [facility] HospitalUrinalysis2021-02-21 09:06:00* Test Item Value Reference Range Interpretation Comme nts APPEARANCE (test code = 4549177520) Hazy Clear A COLOR (test code = 0595777374) Yellow Yellow PH (test code = 0156038065) 4.8-8.0 SP GRAVITY (test code = 2837218555) 1.003-1.030 GLU U QUAL (test code = 2793949405) Normal Normal BLOOD (test code = 7572091855) Negative Negative KETONES (test code = 2294238054) Negative Negative PROTEIN (test code = 2887-8) Negative Negative UROBILIN (test code = 8019084521) Normal Normal BILIRUBIN (test code = 9349908983) Negative Negative NITRITE (test code = 3381629648) Negative Negative LEUK MARC (test code = 6662009362) Negative Negative RBC/HPF (test code = 4120912364) See_Comment [Automated [employer]] The system which generated this result transmitted reference range: 0 - 3 HPF. The reference range was not used to interpret this result as normal/abnormal. WBC/HPF (test code = 4346736339) <1 See_Comment [Automated [employer] ge] The system which generated this result transmitted reference range: 0 - 5 HPF. The reference range was not used to interpret this result as normal/abnormal. BACTERIA (test code = 6214059231) Moderate Negative A SQ EPITH (test code = 4681710283) HPF Lab Interpretation (test code = 49886-2) [facility]normal [facility]fieldCB with Ecipkyjoijbi6343-33-07 08:50:00* Test Item Value Reference Range Interpretation [...] 34.0 g/dL 31.6-35.1 RDW-SD (test code = 11715-2) 42.6 fL 39-49.9 RDW-CV (test code = 788-0) 13.6 % 12-15.5 PLT (test code = 777-3) See_Comment H [Automated messa ge] The system which generated this result transmitted reference range: 166 - 358 10*3/?L. The reference range was not used to interpret this result as normal/abnormal. MPV (test code = 49400-7) 9.7 fL 9.5-12.9 NRBC/100 WBC (test code = 5326730588) See_Comment [Automated [employer] ssage] The system which generated this result transmitted reference range: 0.0 - 10.0 /100 WBCs. The reference range was not used to interpret this result as normal/abnormal. NRBC x10^3 (test code = 0143673817) <0.01 See_Comment [Automated messa ge] The system which generated this result transmitted reference range: 10*3/?L. The reference range was not used to interpret this result as normal/abnormal. GRAN MAT (NEUT) % (test code = 770-8) 49.7 % IMM GRAN % (test code = 4388571474) 0.50 % LYMPH % (test code = 736-9) 41.0 % MONO % (test code = 5905-5) 6.5 % EOS % (test code = 713-8) 1.9 % BASO % (test code = 706-2) 0.4 % GRAN MAT x10^3(ANC) (test code = 4543699901) 6.39 10*3/uL 1.88-7.09 IMM GRAN x10^3 (test code = 3994263392) 0.07 10*3/uL 0-0.06 H LYMPH x10^3 (test code = 731-0) 5.27 10*3/uL 1.32-3.29 H MONO x10^3 (test code = 742-7) 0.84 10*3/uL 0.33-0.92 EOS x10^3 (test code = 711-2) 0.24 10*3/uL 0.03-0.39 BASO x10^3 (test code = 704-7) 0.05 10*3/uL 0.01-0.07 Lab Interpretation (test code = 03700-2) [facility]fieldPOCT Strv5120-50-36 08:45:00* Test Item Value Reference Range Interpretation Comme nts POCT PREG (test code = 1605) neg On board controls acceptable with C Line (test code = 3574) yes POCT PREG LOT # (test code = 3575) [id number] POCT PREG TEST DATE ( test code = 3576) 04/06/2022 Lab Interpretation (test cod e = 41882-6) Normal [facility]fieldComplete Metabolic Hdvni9973-55-23 08:30:00* Test Item Value Reference Range Interpretation Comme nts NA (test code = 9589251917) 137 mmol/L 135-145 K (test code = 6066439364) 3.3 mmol/L 3.5-5 L CL (test code = 4962869910) 102 mmol/L 98-108 CO2 TOTAL (test code = 9369178284) 24 mmol/L 23-31 AGAP (test code = 9417503173) 2-16 BUN (test code = 1690916753) 9 mg/dL 7-23 GLUCOSE (test code = 9900370382) 116 mg/dL 70-110 H CREATININE (test code = 2246156197) 0.48 mg/dL 0.5-1.04 L TOTAL BILI (test code = 9475535634) 0.3 mg/dL 0.1-1.1 CALCIUM (test code = 5542079064) 9.4 mg/dL 8.6-10.6 T PROTEIN (test code = 4703580024) 7.0 g/dL 6.3-8.2 ALBUMIN (test code = 0440630181) 4.3 g/dL 3.5-5 ALK PHOS (test code = 3186422526) 127 U/L 34-122 H ALTv (test code = 1742-6) 87 U/L 5-35 H AST(SGOT) (test code = 3295135018) 34 U/L 13-40 eGFR Calculation (Non-) (test code = 2613712680) mL/min/1.73m2 eGFR Calculation () (test code = 0486035988) mL/min/1.73m2 DARWIN (test code = DARWIN) Association [...] imaging tests). Lab Interpretation (test code = 85096-7) [facility]fieldLip[facility], Xsytt7842-92-22 08:30:00* Test Item Value Reference Range Interpretation Comme nts LIPASE (test code = 4453557276) 297 U/L 0-220 H Lab Interpretation (test cod e = 71151-5) [facility]fieldURINALYSIS2021-02-07 19:25:00* Test Item Value Reference Range Interpretation Comme nts APPEARANCE (test code = 2768634597) Clear Clear COLOR (test code = 1169810820) Straw Yellow A PH (test code = 0264672153) 4.8-8.0 SP GRAVITY (test code = 5850647087) 1.003-1.030 GLU U QUAL (test code = 0225265074) Normal Normal BLOOD (test code = 1818266289) 1+ Negative A KETONES (test code = 8085745793) Negative Negative PROTEIN (test code = 2887-8) Negative Negative UROBILIN (test code = 3283187136) Normal Normal BILIRUBIN (test code = 3660526566) Negative Negative NITRITE (test code = 0400770255) Negative Negative LEUK MARC (test code = 0345974616) Negative Negative RBC/HPF (test code = 6364865343) See_Comment [Automated [employer]] The system which generated this result transmitted reference range: 0 - 3 HPF. The reference range was not used to interpret this result as normal/abnormal. WBC/HPF (test code = 4844500397) <1 See_Comment [Automated messa ge] The system which generated this result transmitted reference range: 0 - 5 HPF. The reference range was not used to interpret this result as normal/abnormal. BACTERIA (test code = 3725167948) Few Negative A MUCOUS (test code = 4734188592) Slight Negative LPF A SQ EPITH (test code = 4099387762) HPF Lab Interpretation (test code = 20097-3) [facility]normal [facility]fieldTROPONIN [id number] 19:09:00* Test Item Value Reference Range Interpretation Comme nts TROPONIN I (test code = 4045928901) <0.012 See_Comment [Automated message] The system which [...] biotin. ? Lab Interpretation (test code = 02658-1) Normal [facility] - DRUG SCREEN [id number] 19:09:00* Test Item Value Reference Range Interpretation Comme nts BENZO U (test code = 7002563175) Presumptive Positive Negative A ROSA U (test code = 2336327631) Negative Negative AMPHET (test code = 6472749984) Negative Negative THC (test code = 0074072639) Negative Negative METHADONE (test code = 8910899384) Negative Negative Meth U (test code = 9569740986) Negative Negative OPIATES (test code = 9441161535) Negative Negative Cocaine Metabolite (test code = 8030007505) Negative Negative PROPOXY (test code = 9626680533) Negative Negative Tric U (test code = 7678718381) Negative Negative PCP (test code = 1760620785) Negative Negative OXYCOD (test code = 2020566958) Negative Negative DARWIN (test code = DARWIN) [...] legal testing). Lab Interpretation (test code = 25966-2) Abnormal [facility] [place]. METABOLIC PANEL (85666)2020-08-14 19:01:00* Test Item Value Reference Range Interpretation Comme nts NA (test code = 6826504386) 138 mmol/L 135-145 K (test code = 4701595647) 4.5 mmol/L 3.5-5 CL (test code = 8018460608) 106 mmol/L 98-108 CO2 TOTAL (test code = 3929072515) 21 mmol/L 23-31 L AGAP (test code = 2685990801) 2-16 BUN (test code = 3638735027) 13 mg/dL 7-23 GLUCOSE (test code = 3036692094) 97 mg/dL 70-110 CREATININE (test code = 4607968020) 0.48 mg/dL 0.5-1.04 L TOTAL BILI (test code = 3545640887) 0.4 mg/dL 0.1-1.1 CALCIUM (test code = 8305766461) 9.1 mg/dL 8.6-10.6 T PROTEIN (test code = 7973457068) 7.5 g/dL 6.3-8.2 ALBUMIN (test code = 5142440686) 4.3 g/dL 3.5-5 ALK PHOS (test code = 9622185808) 62 U/L 34-122 ALTv (test code = 1742-6) 19 U/L 5-35 AST(SGOT) (test code = 4703434828) 26 U/L 13-40 eGFR Calculation (Non-) (test code = 9597788605) mL/min/1.73m2 eGFR Calculation () (test code = 3412109757) mL/min/1.73m2 DARWIN (test code = DARWIN) Association [...] imaging tests). Lab Interpretation (test code = 49477-2) [facility]fieldL[facility]ASE2021-[facility]-07 19:01:00* Test Item Value Reference Range Interpretation Comme nts LIPASE (test code = 2410434435) 76 U/L 0-220 Lab Interpretation (test cod e = 90005-7) Normal [facility]fieldCB WITH [id number] 18:47:00* Test Item Value Reference Range Interpretation [...] 34.3 g/dL 31.6-35.1 RDW-SD (test code = 88156-6) 42.0 fL 39-49.9 RDW-CV (test code = 788-0) 13.4 % 12-15.5 PLT (test code = 777-3) See_Comment [Automated messa ge] The system which generated this result transmitted reference range: 166 - 358 10*3/?L. The reference range was not used to interpret this result as normal/abnormal. MPV (test code = 60439-5) 9.9 fL 9.5-12.9 NRBC/100 WBC (test code = 4979158850) See_Comment [Automated [employer]] The system which generated this result transmitted reference range: 0.0 - 10.0 /100 WBCs. The reference range was not used to interpret this result as normal/abnormal. NRBC x10^3 (test code = 0150320802) <0.01 See_Comment [Automated messa ge] The system which generated this result transmitted reference range: 10*3/?L. The reference range was not used to interpret this result as normal/abnormal. GRAN MAT (NEUT) % (test code = 770-8) 60.1 % IMM GRAN % (test code = 2646361915) 0.40 % LYMPH % (test code = 736-9) 31.3 % MONO % (test code = 5905-5) 6.0 % EOS % (test code = 713-8) 1.9 % BASO % (test code = 706-2) 0.3 % GRAN MAT x10^3(ANC) (test code = 5317001081) 6.96 10*3/uL 1.88-7.09 IMM GRAN x10^3 (test code = 2046103731) 0.05 10*3/uL 0-0.06 LYMPH x10^3 (test code = 731-0) 3.62 10*3/uL 1.32-3.29 H MONO x10^3 (test code = 742-7) 0.69 10*3/uL 0.33-0.92 EOS x10^3 (test code = 711-2) 0.22 10*3/uL 0.03-0.39 BASO x10^3 (test code = 704-7) 0.04 10*3/uL 0.01-0.07 Lab Interpretation (test code = 81676-8) [facility]ST 1 [id number] 18:17:08No acute cardiopulmonary abnormality. Preliminary Report Dictated [...] study and agree with theabove report.[facility]fieldLactic Acid Whole Cctgo6415-05-01 18:11:00* Test Item Value Reference Range Interpretation Comme nts LACTIC ACID (test code = 0067191499) 1.95 mmol/L 0.5-2.2 Lab Interpretation (test cod e = 76218-5) Normal [facility]fieldCT ABDOMEN PELVIS WO RTJYEQMK3450-07-93 05:45:24No acute abdominopelvic abnormality. No urolithiasis. 2.5 [...] study and agree with the abovereport.[facility]fieldPOCT [id number] 03:10:00* Test Item Value Reference Range Interpretation Comme nts POCT PREG (test code = 1605) Negative On board controls acceptable with C Line (test code = 3574) Present POCT PREG LOT # (test code = 3575) [id number] POCT PREG TEST DATE ( test code = 3576) 03/07/2022 Lab Interpretation (test cod e = 00861-2) Normal [facility] with Joarlrotztvu6700-21-69 03:05:00* Test Item Value Reference Range Interpretation [...] 34.7 g/dL 31.6-35.1 RDW-SD (test code = 49878-3) 42.0 fL 39-49.9 RDW-CV (test code = 788-0) 13.5 % 12-15.5 PLT (test code = 777-3) See_Comment [Automated message] The system which generated this result transmitted reference range: 166 - 358 10*3/?L. The reference range was not used to interpret this result as normal/abnormal. MPV (test code = 88589-9) 9.8 fL 9.5-12.9 NRBC/100 WBC (test code = 1971215254) See_Comment [Automated message] The system which generated this result transmitted reference range: 0.0 - 10.0 /100 WBCs. The reference range was not used to interpret this result as normal/abnormal. NRBC x10^3 (test code = 5850712462) <0.01 See_Comment [Automated message] The system which generated this result transmitted reference range: 10*3/?L. The reference range was not used to interpret this result as normal/abnormal. GRAN MAT (NEUT) % (test code = 770-8) 66.2 % IMM GRAN % (test code = 3299916491) 0.60 % LYMPH % (test code = 736-9) 25.4 % MONO % (test code = 5905-5) 5.6 % EOS % (test code = 713-8) 1.9 % BASO % (test code = 706-2) 0.3 % GRAN MAT x10^3(ANC) (test code = 2121807209) 10.64 10*3/uL 1.88-7.09 H IMM GRAN x10^3 (test code = 2284283932) 0.09 10*3/uL 0-0.06 H LYMPH x10^3 (test code = 731-0) 4.09 10*3/uL 1.32-3.29 H MONO x10^3 (test code = 742-7) 0.90 10*3/uL 0.33-0.92 EOS x10^3 (test code = 711-2) 0.31 10*3/uL 0.03-0.39 BASO x10^3 (test code = 704-7) 0.05 10*3/uL 0.01-0.07 Lab Interpretation (test code = 86419-1) [facility] Test Item Value Reference Range Interpretation Comme nts APPEARANCE (test code = 2815177006) Hazy Clear A COLOR (test code = 3425214626) Yellow Yellow PH (test code = 3426978744) 4.8-8.0 SP GRAVITY (test code = 8247573472) 1.003-1.030 GLU U QUAL (test code = 5056954788) Normal Normal BLOOD (test code = 3171730166) Negative Negative KETONES (test code = 7977056286) Negative Negative PROTEIN (test code = 2887-8) Negative Negative UROBILIN (test code = 8085471928) Normal Normal BILIRUBIN (test code = 1097870441) Negative Negative NITRITE (test code = 6402658277) Negative Negative LEUK MARC (test code = 0783598311) Negative Negative RBC/HPF (test code = 1060359594) See_Comment [Automated messa ge] The system which generated this result transmitted reference range: 0 - 3 HPF. The reference range was not used to interpret this result as normal/abnormal. WBC/HPF (test code = 5536095285) See_Comment [Automated messa ge] The system which generated this result transmitted reference range: 0 - 5 HPF. The reference range was not used to interpret this result as normal/abnormal. BACTERIA (test code = 6078459040) Few Negative A MUCOUS (test code = 6449766959) Slight Negative LPF A SQ EPITH (test code = 1805772426) HPF YEAST BUD (test code = 2704163853) See_Comment H [Automated messa ge] The system which generated this result transmitted reference range: <=1 HPF. The reference range was not used to interpret this result as normal/abnormal. Lab Interpretation (test code = 56616-8) Abnormal [facility] [id number] 02:24:00* Test Item Value Reference Range Interpretation Comme nts TROPONIN I (test code = 3361505324) <0.012 See_Comment [Automated message] The system which [...] biotin. ? Lab Interpretation (test code = 25238-3) [facility]ID TEST[facility]2020-08-11 02:15:00* Test Item Value Reference Range Interpretation Comme nts SARS-CoV-2 Rapid ID NOW (test code = 02324-3) Not Detected Not Detected DARWIN (test code = DARWIN) ID NOW COVID-19 As say is an isothermal nucleic acid amplification test intended for the qualitative detection of nucleic acid from SARS-CoV-2 viral RNA in nasopharyngeal (CARRIER BLOWER) specimens. It is used under Emergency Use [...] clinically indicated. Lab Interpretation (test code = 59732-0) [facility] (NA, K, CL, CO2, GLUCOSE, BUN, CREATININE, CA)2020-08-11 02:13:00* Test Item Value Reference Range Interpretation Comme nts NA (test code = 0928291877) 137 mmol/L 135-145 K (test code = 9309579175) 4.0 mmol/L 3.5-5 CL (test code = 8065857423) 107 mmol/L 98-108 CO2 TOTAL (test code = 7271073142) 19 mmol/L 23-31 L AGAP (test code = 3412654767) 2-16 BUN (test code = 0745844616) 10 mg/dL 7-23 GLUCOSE (test code = 4659738392) 106 mg/dL 70-110 CREATININE (test code = 8291439946) 0.47 mg/dL 0.5-1.04 L CALCIUM (test code = 7531632330) 9.2 mg/dL 8.6-10.6 eGFR Calculation (Non-) (test code = 4369459839) mL/min/1.73m2 eGFR Calculation () (test code = 1954215152) mL/min/1.73m2 DARWIN (test code = DARWIN) Association [...] imaging tests). Lab Interpretation (test code = 95032-1) [facility] (ALB, T.PRO, BILI T, BU/BC, ALT, AST, ALK PHOS)2020-08-11 02:13:00* Test Item Value Reference Range Interpretation Comme nts TOTAL BILI (test code = 8385177328) 0.4 mg/dL 0.1-1.1 BILI UNCON (test code = 2915182897) 0.3 mg/dL 0.1-1.1 BILI CONJ (test code = 0657227379) 0.0 mg/dL 0-0.3 T PROTEIN (test code = 7013523964) 7.5 g/dL 6.3-8.2 ALBUMIN (test code = 0513459620) 4.4 g/dL 3.5-5 ALK PHOS (test code = 7414780010) 48 U/L 34-122 ALTv (test code = 1742-6) 12 U/L 5-35 AST(SGOT) (test code = 5636684164) 22 U/L 13-40 Lab Interpretation (test cod e = 07713-4) [facility]field[facility]ase [id number] 02:13:00* Test Item Value Reference Range Interpretation Comme nts LIPASE (test code = 0577555353) 78 U/L 0-220 Lab Interpretation (test cod e = 38208-1) Normal [facility]fieldLactic Acid Whole [id number] 02:05:00* Test Item Value Reference Range Interpretation Comme nts LACTIC ACID (test code = 9463802258) 1.47 mmol/L 0.5-2.2 Lab Interpretation (test cod e = 04008-0) [facility]fieldXR FOREARM 2 VW [id number] 14:31:40No acute bony abnormality. Soft tissue swelling. [...] swelling is present in the distal forearm. [facility], Radiant Results Inft User - 08/07/2020 8:32 [...] study and agree with the abovereport.[facility] ([facility] NOW RAPID TESTING)2020-08-07 14:18:00* Test Item Value Reference Range Interpretation Comme nts SARS-CoV-2 Rapid ID NOW (test code = 95281-6) Not Detected Not Detected DARWIN (test code = DARWIN) ID NOW COVID-19 As say is an isothermal nucleic acid amplification test intended for the qualitative detection of nucleic acid from SARS-CoV-2 viral RNA in nasopharyngeal (CARRIER BLOWER) specimens. It is used under Emergency Use [...] clinically indicated. Lab Interpretation (test code = 50038-0) [facility]fieldTR[facility] [id number] 02:54:00* Test Item Value Reference Range Interpretation Comme nts TROPONIN I (test code = 2380503570) <0.012 See_Comment [Automated message] The system which [...] biotin. ? Lab Interpretation (test code = 60645-8) [facility]2020-12-25 02:37:00* Test Item Value Reference Range Interpretation Comme nts LIPASE (test code = 0294945612) 76 U/L 0-220 Lab Interpretation (test cod e = 35758-1) [facility]field[facility]INALYSIS2020-12-25 01:54:00* Test Item Value Reference Range Interpretation Comme nts APPEARANCE (test code = 0752972823) Clear Clear COLOR (test code = 9774955849) Straw Yellow A PH (test code = 9347768473) 4.8-8.0 SP GRAVITY (test code = 5063506520) 1.003-1.030 GLU U QUAL (test code = 6490620116) Normal Normal BLOOD (test code = 9319072389) 3+ Negative A KETONES (test code = 7329086138) Negative Negative PROTEIN (test code = 2887-8) Negative Negative UROBILIN (test code = 5229354843) Normal Normal BILIRUBIN (test code = 6809412676) Negative Negative NITRITE (test code = 1129300574) Negative Negative LEUK MARC (test code = 0958227711) Negative Negative RBC/HPF (test code = 3745717324) See_Comment [Automated Companion Caninea ge] The system which generated this result transmitted reference range: 0 - 3 HPF. The reference range was not used to interpret this result as normal/abnormal. WBC/HPF (test code = 7204328610) <1 See_Comment [Automated Companion Caninea Plutora] The system which generated this result transmitted reference range: 0 - 5 HPF. The reference range was not used to interpret this result as normal/abnormal. BACTERIA (test code = 6044718808) Few Negative A MUCOUS (test code = 5721247913) Slight Negative LPF A SQ EPITH (test code = 5185820487) HPF Lab Interpretation (test code = 32735-8) Abnormal [facility] WITH [id number] 00:57:00* Test Item Value Reference Range Interpretation [...] 34.0 g/dL 31.6-35.1 RDW-SD (test code = 75341-3) 41.7 fL 39-49.9 RDW-CV (test code = 788-0) 13.2 % 12-15.5 PLT (test code = 777-3) See_Comment [Automated messa ge] The system which generated this result transmitted reference range: 166 - 358 10*3/?L. The reference range was not used to interpret this result as normal/abnormal. MPV (test code = 24283-1) 9.4 fL 9.5-12.9 L NRBC/100 WBC (test code = 1535636392) See_Comment [Automated Green Plug ssage] The system which generated this result transmitted reference range: 0.0 - 10.0 /100 WBCs. The reference range was not used to interpret this result as normal/abnormal. NRBC x10^3 (test code = 5848971406) <0.01 See_Comment [Automated messa ge] The system which generated this result transmitted reference range: 10*3/?L. The reference range was not used to interpret this result as normal/abnormal. GRAN MAT (NEUT) % (test code = 770-8) 51.8 % IMM GRAN % (test code = 7679804996) 0.50 % LYMPH % (test code = 736-9) 40.7 % MONO % (test code = 5905-5) 4.0 % EOS % (test code = 713-8) 2.5 % BASO % (test code = 706-2) 0.5 % GRAN MAT x10^3(ANC) (test code = 1923554651) 5.38 10*3/uL 1.88-7.09 IMM GRAN x10^3 (test code = 4701681262) 0.05 10*3/uL 0-0.06 LYMPH x10^3 (test code = 731-0) 4.22 10*3/uL 1.32-3.29 H MONO x10^3 (test code = 742-7) 0.42 10*3/uL 0.33-0.92 EOS x10^3 (test code = 711-2) 0.26 10*3/uL 0.03-0.39 BASO x10^3 (test code = 704-7) 0.05 10*3/uL 0.01-0.07 Lab Interpretation (test code = 42063-0) [facility]normal [facility]AD,CLC OR L[facility] ONLY - INFLUENZA A & B DIRECT [id number] 00:51:00* Test Item Value Reference Range Interpretation Comme nts Influenza A (test code = 19701-2) Negative Negative Influenza B (test code = 36594-9) Negative Negative Lab Interpretation (test cod e = 78474-6) Normal [facility]fieldPOCT [id number] 00:51:00* Test Item Value Reference Range Interpretation Comme nts POCT PREG (test code = 1605) negative On board controls acceptable with C Line (test code = 3574) present POCT PREG LOT # (test code = 3575) [id number] POCT PREG TEST DATE ( test code = 3576) 11/04/2021 Lab Interpretation (test cod e = 48118-4) [id number] 00:46:00* Test Item Value Reference Range Interpretation Comme nts TROPONIN I (test code = 5906648036) <0.012 See_Comment [Automated message] The system which [...] biotin. ? Lab Interpretation (test code = 58448-2) [facility] METABOLIC PANEL (NA, K, CL, CO2, GLUCOSE, BUN, CREATININE, CA)2020-07-01 00:46:00* Test Item Value Reference Range Interpretation Comme nts NA (test code = 8912852741) 141 mmol/L 135-145 K (test code = 1878495391) 3.8 mmol/L 3.5-5 CL (test code = 8544641728) 108 mmol/L 98-108 CO2 TOTAL (test code = 6951057200) 25 mmol/L 23-31 AGAP (test code = 3649867991) 2-16 BUN (test code = 0365021941) 10 mg/dL 7-23 GLUCOSE (test code = 4318041489) 92 mg/dL 70-110 CREATININE (test code = 9303132939) 0.58 mg/dL 0.5-1.04 CALCIUM (test code = 4394513547) 9.4 mg/dL 8.6-10.6 eGFR Calculation (Non-) (test code = 7917322035) mL/min/1.73m2 eGFR Calculation () (test code = 3509885510) mL/min/1.73m2 DARWIN (test code = DARWIN) Association [...] or abnormalities in imaging tests). [facility]fieldN-TERMINAL RZK-LSC6415-71-25 00:43:00* Test Item Value Reference Range Interpretation Comme nts NT-proBNP (test code = 2894615463) 332 pg/mL See_Comment H [Automated message] The system which generated this result transmitted reference range: <=125. The reference range was not used to interpret this result as normal/abnormal. DARWIN (test code = DARWIN) Biotin has been reported to cause a negative bias, interpret results relative to patient's use of biotin. Lab Interpretation (test code = 42336-3) [facility]normal [facility] CHEST 1 [id number] 00:20:50No acute cardiopulmonary abnormality Preliminary Report Dictated [...] study and agree with the abovereport.[facility]fieldCT CERVICAL SPINE WO [id number] 23:23:[address] EXAMINATION: CT [...] are unremarkable. IMPRESSIONUnremarkable cervical spine CT.[facility]fieldPOCT Gyqf5247-47-71 01:50:00* Test Item Value Reference Range Interpretation Comme nts POCT PREG (test code = 1605) Negative On board controls acceptable with C Line (test code = 3574) Present POCT PREG LOT # (test code = 3575) [id number] POCT PREG TEST DATE ( test code = 3576) 10/05/2021 Lab Interpretation (test cod e = 26060-9) Normal [facility]oponin [id number] 01:24:00* Test Item Value Reference Range Interpretation Comme [facility] TROPONIN I (test code = 7610862783) <0.012 See_Comment [Automated message] The system which [...] biotin. ? Lab Interpretation (test code = 67591-4) [facility] (ID NOW RAPID TESTING)2020-06-13 01:22:00* Test Item Value Reference Range Interpretation Comme nts SARS-CoV-2 Rapid ID NOW (test code = 30645-7) Not Detected Not Detected DARWIN (test code = DARWIN) ID NOW COVID-19 As say is an isothermal nucleic acid amplification test intended for the qualitative detection of nucleic acid from SARS-CoV-2 viral RNA in nasopharyngeal (CARRIER BLOWER) specimens. It is used under Emergency Use [...] clinically indicated. Lab Interpretation (test code = 42119-2) Normal [facility]fieldD-JQTUH1147-30-52 01:16:00* Test Item Value Reference Range Interpretation Comments D-DIMER (test code = 3806070260) See_Comment [Automated message] The system which generated [...] a diagnosis. Lab Interpretation (test code = 13544-7) Normal [facility] Metabolic Panel (NA, K, CL, CO2, GLUCOSE, BUN, CREATININE, CA)2020-06-13 01:13:00* Test Item Value Reference Range Interpretation Comme nts NA (test code = 0050180216) 137 mmol/L 135-145 K (test code = 0122873424) 4.2 mmol/L 3.5-5 CL (test code = 7346977972) 103 mmol/L 98-108 CO2 TOTAL (test code = 8704036569) 25 mmol/L 23-31 AGAP (test code = 5473911243) 2-16 BUN (test code = 6967437427) 11 mg/dL 7-23 GLUCOSE (test code = 0542450849) 98 mg/dL 70-110 CREATININE (test code = 7314268399) 0.52 mg/dL 0.5-1.04 CALCIUM (test code = 8690311892) 10.3 mg/dL 8.6-10.6 eGFR Calculation (Non-) (test code = 9441850376) mL/min/1.73m2 eGFR Calculation () (test code = 1296999952) mL/min/1.73m2 DARWIN (test code = DARWIN) Association [...] or abnormalities in imaging tests). [facility] (ALB, T.PRO, BILI T, BU/BC, ALT, AST, ALK PHOS)2020-06-13 01:13:00* Test Item Value Reference Range Interpretation Comme nts TOTAL BILI (test code = 4437411959) 0.5 mg/dL 0.1-1.1 BILI UNCON (test code = 9921390522) 0.3 mg/dL 0.1-1.1 BILI CONJ (test code = 9144013621) 0.0 mg/dL 0-0.3 T PROTEIN (test code = 2457645912) 7.3 g/dL 6.3-8.2 ALBUMIN (test code = 8571236608) 4.2 g/dL 3.5-5 ALK PHOS (test code = 5276776710) 85 U/L 34-122 ALTv (test code = 1742-6) 66 U/L 5-35 H AST(SGOT) (test code = 0484114981) 32 U/L 13-40 Lab Interpretation (test cod e = 21467-3) [facility]normal [facility]fieldLipase [id number] 01:13:00* Test Item Value Reference Range Interpretation Comme nts LIPASE (test code = 4375231721) 60 U/L 0-220 Lab Interpretation (test cod e = 86943-9) Normal [facility]fieldUrinalysis2020-12-07 01:03:00* Test Item Value Reference Range Interpretation Comme nts APPEARANCE (test code = 8220374621) Clear Clear COLOR (test code = 1602492134) Straw Yellow A PH (test code = 1850164226) 4.8-8.0 SP GRAVITY (test code = 2187388788) 1.003-1.030 GLU U QUAL (test code = 7016094206) Normal Normal BLOOD (test code = 9910126057) Negative Negative KETONES (test code = 8275104883) Negative Negative PROTEIN (test code = 2887-8) Negative Negative UROBILIN (test code = 4515453856) Normal Normal BILIRUBIN (test code = 6304163951) Negative Negative NITRITE (test code = 4232617294) Negative Negative LEUK MARC (test code = 3513323017) Negative Negative RBC/HPF (test code = 9867381093) See_Comment [Automated messa ge] The system which generated this result transmitted reference range: 0 - 3 HPF. The reference range was not used to interpret this result as normal/abnormal. WBC/HPF (test code = 8360074329) See_Comment [Automated messa ge] The system which generated this result transmitted reference range: 0 - 5 HPF. The reference range was not used to interpret this result as normal/abnormal. BACTERIA (test code = 1284423246) Negative Negative MUCOUS (test code = 1929873383) Slight Negative LPF A SQ EPITH (test code = 3322390461) HPF Lab Interpretation (test code = 34973-8) Abnormal [facility] with Iblvtsifqbkk7302-77-32 00:55:00* Test Item Value Reference Range Interpretation [...] 34.5 g/dL 31.6-35.1 RDW-SD (test code = 44481-7) 42.5 fL 39-49.9 RDW-CV (test code = 788-0) 13.5 % 12-15.5 PLT (test code = 777-3) See_Comment [Automated messa ge] The system which generated this result transmitted reference range: 166 - 358 10*3/?L. The reference range was not used to interpret this result as normal/abnormal. MPV (test code = 99175-6) 10.1 fL 9.5-12.9 NRBC/100 WBC (test code = 0685491340) See_Comment [Automated Green Plug ssage] The system which generated this result transmitted reference range: 0.0 - 10.0 /100 WBCs. The reference range was not used to interpret this result as normal/abnormal. NRBC x10^3 (test code = 2770202958) <0.01 See_Comment [Automated messa ge] The system which generated this result transmitted reference range: 10*3/?L. The reference range was not used to interpret this result as normal/abnormal. GRAN MAT (NEUT) % (test code = 770-8) 61.9 % IMM GRAN % (test code = 2522502592) 0.60 % LYMPH % (test code = 736-9) 30.6 % MONO % (test code = 5905-5) 5.2 % EOS % (test code = 713-8) 1.4 % BASO % (test code = 706-2) 0.3 % GRAN MAT x10^3(ANC) (test code = 6200758890) 8.03 10*3/uL 1.88-7.09 H IMM GRAN x10^3 (test code = 3757470218) 0.08 10*3/uL 0-0.06 H LYMPH x10^3 (test code = 731-0) 3.97 10*3/uL 1.32-3.29 H MONO x10^3 (test code = 742-7) 0.68 10*3/uL 0.33-0.92 EOS x10^3 (test code = 711-2) 0.18 10*3/uL 0.03-0.39 BASO x10^3 (test code = 704-7) 0.04 10*3/uL 0.01-0.07 Lab Interpretation (test code = 25144-0) [facility] NOW RAPID TESTING)2020-05-17 00:27:00* Test Item Value Reference Range Interpretation Comme nts SARS-CoV-2 Rapid ID NOW (test code = 56395-1) Not Detected Not Detected DARWIN (test code = DARWIN) ID NOW COVID-19 As say is an isothermal nucleic acid amplification test intended for the qualitative detection of nucleic acid from SARS-CoV-2 viral RNA in nasopharyngeal (CARRIER BLOWER) specimens. It is used under Emergency Use [...] clinically indicated. Lab Interpretation (test code = 76496-9) [facility] (NA, K, CL, CO2, GLUCOSE, BUN, CREATININE, CA)2020-05-17 00:00:00* Test Item Value Reference Range Interpretation Comme nts NA (test code = 5729065406) 136 mmol/L 135-145 K (test code = 6478377568) 3.6 mmol/L 3.5-5 CL (test code = 5979322099) 103 mmol/L 98-108 CO2 TOTAL (test code = 4925944117) 26 mmol/L 23-31 AGAP (test code = 8861548774) 2-16 BUN (test code = 4106488385) 13 mg/dL 7-23 GLUCOSE (test code = 8232171585) 130 mg/dL 70-110 H CREATININE (test code = 8743481532) 0.58 mg/dL 0.5-1.04 CALCIUM (test code = 6535820795) 9.9 mg/dL 8.6-10.6 eGFR Calculation (Non-) (test code = 5751507834) mL/min/1.73m2 eGFR Calculation () (test code = 7633992271) mL/min/1.73m2 DARWIN (test code = DARWIN) Association [...] imaging tests). Lab Interpretation (test code = 41286-7) [facility] (ALB, T.PRO, BILI T, BU/BC, ALT, AST, ALK PHOS)2020-05-17 00:00:00* Test Item Value Reference Range Interpretation Comme nts TOTAL BILI (test code = 4139272123) 0.4 mg/dL 0.1-1.1 BILI UNCON (test code = 2025529109) 0.3 mg/dL 0.1-1.1 BILI CONJ (test code = 4244772732) 0.0 mg/dL 0-0.3 T PROTEIN (test code = 3581052394) 7.3 g/dL 6.3-8.2 ALBUMIN (test code = 9711218234) 4.3 g/dL 3.5-5 ALK PHOS (test code = 1879257771) 118 U/L 34-122 ALTv (test code = 1742-6) 119 U/L 5-35 H AST(SGOT) (test code = 8438901737) 47 U/L 13-40 H Lab Interpretation (test cod e = 84451-1) [facility]normal [facility]fieldLipase Hgzwm2089-99-17 00:00:00* Test Item Value Reference Range Interpretation Comme nts LIPASE (test code = 4063104564) 70 U/L 0-220 Lab Interpretation (test cod e = 49385-6) Normal [facility]fieldCBC with Refabmvfxpva6309-11-42 23:49:00* Test Item Value Reference Range Interpretation Comme nts WBC (test code = 6690-2) See_Comment [Automated Companion [place] ge] The system which generated this result transmitted reference range: 4.30 - 11.10 10*3/?L. The reference range was not used to interpret this result as normal/abnormal. RBC (test code = 789-8) See_Comment [Automated Companion [place] ge] The system which generated this result [...] 33.3 g/dL 31.6-35.1 RDW-SD (test code = 52615-4) 42.8 fL 39-49.9 RDW-CV (test code = 788-0) 13.5 % 12-15.5 PLT (test code = 777-3) See_Comment [Automated Companion [place] ge] The system which generated this result transmitted reference range: 166 - 358 10*3/?L. The reference range was not used to interpret this result as normal/abnormal. MPV (test code = 54558-2) 9.8 fL 9.5-12.9 NRBC/100 WBC (test code = 1165333446) See_Comment [Automated me ssage] The system which generated this result transmitted reference range: 0.0 - 10.0 /100 WBCs. The reference range was not used to interpret this result as normal/abnormal. NRBC x10^3 (test code = 8377463461) <0.01 See_Comment [Automated me ssage] The system which generated this result transmitted reference range: 10*3/?L. The reference range was not used to interpret this result as normal/abnormal. GRAN MAT (NEUT) % (test code = 770-8) 62.5 % IMM GRAN % (test code = 1578078376) 0.50 % LYMPH % (test code = 736-9) 29.8 % MONO % (test code = 5905-5) 5.6 % EOS % (test code = 713-8) 1.1 % BASO % (test code = 706-2) 0.5 % GRAN MAT x10^3(ANC) (test code = 8920597699) 6.65 10*3/uL 1.88-7.09 IMM GRAN x10^3 (test code = 6340881202) 0.05 10*3/uL 0-0.06 LYMPH x10^3 (test code = 731-0) 3.17 10*3/uL 1.32-3.29 MONO x10^3 (test code = 742-7) 0.59 10*3/uL 0.33-0.92 EOS x10^3 (test code = 711-2) 0.12 10*3/uL 0.03-0.39 BASO x10^3 (test code = 704-7) 0.05 10*3/uL 0.01-0.07 [facility]fieldACETAMINOPHEN2020-11-08 08:24:00* Test Item Value Reference Range Interpretation Comme nts ACETAMINOP (test code = 9017468494) 21.0 ug/mL 10-30 DARWIN (test code = DARWIN) Toxic: Greater joan n 200 ug/mL @ 4 hour post ingestion or greater than 50 ug/mL @ 12 hour post ingestion Lab Interpretation (test code = 01239-2) Normal [facility]fieldETHANOL2020-11-08 06:37:00* Test Item Value Reference Range Interpretation Comme nts ALCOHOL (test code = 6024507330) <10 mg/dL DARWIN (test code = DARWIN) <10 Kmutjvtc22-107 Toxic>100 Depression of PARKING ENFORCER>400 Fatalities Reported [facility] (NA, K, CL, CO2, GLUCOSE, BUN, CREATININE, CA)2020-05-15 06:35:00* Test Item Value Reference Range Interpretation Comme nts NA (test code = 5283171521) 137 mmol/L 135-145 K (test code = 5482101819) 4.0 mmol/L 3.5-5 CL (test code = 6919999570) 106 mmol/L 98-108 CO2 TOTAL (test code = 8478746574) 25 mmol/L 23-31 AGAP (test code = 9975094369) 2-16 BUN (test code = 5624524570) 9 mg/dL 7-23 GLUCOSE (test code = 6671975355) 95 mg/dL 70-110 CREATININE (test code = 3508512701) 0.53 mg/dL 0.5-1.04 CALCIUM (test code = 2402821693) 9.0 mg/dL 8.6-10.6 eGFR Calculation (Non-) (test code = 1445123927) mL/min/1.73m2 eGFR Calculation () (test code = 1067788846) mL/min/1.73m2 DARWIN (test code = DARWIN) Association [...] or abnormalities in imaging tests). [facility] (ALB, T.PRO, BILI T, BU/BC, ALT, AST, ALK PHOS)2020-05-15 06:35:00* Test Item Value Reference Range Interpretation Comme nts TOTAL BILI (test code = 4758487099) 0.4 mg/dL 0.1-1.1 BILI UNCON (test code = 3920137987) 0.2 mg/dL 0.1-1.1 BILI CONJ (test code = 4718965756) 0.0 mg/dL 0-0.3 T PROTEIN (test code = 6708803917) 6.3 g/dL 6.3-8.2 ALBUMIN (test code = 1709587893) 3.8 g/dL 3.5-5 ALK PHOS (test code = 0172374604) 117 U/L 34-122 ALTv (test code = 1742-6) 179 U/L 5-35 H AST(SGOT) (test code = 6665977136) 194 U/L 13-40 H Lab Interpretation (test cod e = 84043-9) [facility]normal [facility]fieldLip[facility] Svynx1685-62-07 06:35:00* Test Item Value Reference Range Interpretation Comme nts LIPASE (test code = 2223013875) 92 U/L 0-220 Lab Interpretation (test cod e = 02230-4) Normal [facility]fieldaPTT2020-11-08 06:22:00* Test Item Value Reference Range Interpretation [...] 30 seconds. Lab Interpretation (test code = 62927-7) Normal [facility]fieldUrinalysis2020-11-08 06:21:00* Test Item Value Reference Range Interpretation Comme nts APPEARANCE (test code = 6054112889) Clear Clear COLOR (test code = 6426469816) Yellow Yellow PH (test code = 4732693216) 4.8-8.0 SP GRAVITY (test code = 2839093288) 1.003-1.030 GLU U QUAL (test code = 0266934844) Normal Normal BLOOD (test code = 5407723893) Negative Negative KETONES (test code = 1925765905) Negative Negative PROTEIN (test code = 2887-8) Negative Negative UROBILIN (test code = 4030666190) Normal Normal BILIRUBIN (test code = 9594033798) Negative Negative NITRITE (test code = 7910279398) Negative Negative LEUK MARC (test code = 9349822002) Negative Negative RBC/HPF (test code = 8069510875) See_Comment [Automated Companion Caninea ge] The system which generated this result transmitted reference range: 0 - 3 HPF. The reference range was not used to interpret this result as normal/abnormal. WBC/HPF (test code = 3148653859) <1 See_Comment [Automated Companion Caninea ge] The system which generated this result transmitted reference range: 0 - 5 HPF. The reference range was not used to interpret this result as normal/abnormal. BACTERIA (test code = 4148511119) Negative Negative MUCOUS (test code = 0600189165) Slight Negative LPF A SQ EPITH (test code = 3022799751) HPF Lab Interpretation (test code = 24730-8) [facility] / [id number] 06:20:00 * Test Item Value Reference Range Interpretation Comme nts PROTIME PATIENT (test code = 5964-2) See_Comment [Automated Companion Caninea ge] The system which generated this result transmitted reference range: 12.0 - 14.7 Seconds. The reference range was not used to interpret this result as normal/abnormal. INR (test code = 6301-6) Normal INR <1.1; Warfarin Therapeutic range 2.0 to 3.0 or 2.5 to 3.5, depending upon the indications. Lab Interpretation (test code = 01189-5) Normal [facility] - DRUG SCREEN [id number] 06:19:00* Test Item Value Reference Range Interpretation Comme nts BENZO U (test code = 6159061474) Presumptive Positive Negative A ROSA U (test code = 5915007016) Negative Negative AMPHET (test code = 2189153207) Negative Negative THC (test code = 1341810687) Negative Negative METHADONE (test code = 6517848540) Negative Negative Meth U (test code = 9894854750) Negative Negative OPIATES (test code = 4197478685) Negative Negative Cocaine Metabolite (test code = 3758192344) Negative Negative PROPOXY (test code = 2791672233) Negative Negative Tric U (test code = 4424758737) Negative Negative PCP (test code = 8083598448) Negative Negative OXYCOD (test code = 5685650525) Negative Negative DARWIN (test code = DARWIN) [...] legal testing). Lab Interpretation (test code = 35699-1) Abnormal [facility] with Vwsxprricoag0899-92-29 06:07:00* Test Item Value Reference Range Interpretation [...] 34.3 g/dL 31.6-35.1 RDW-SD (test code = 61270-9) 43.4 fL 39-49.9 RDW-CV (test code = 788-0) 13.7 % 12-15.5 PLT (test code = 777-3) See_Comment [Automated Companion Caninea ge] The system which generated this result transmitted reference range: 166 - 358 10*3/?L. The reference range was not used to interpret this result as normal/abnormal. MPV (test code = 88453-9) 9.7 fL 9.5-12.9 NRBC/100 WBC (test code = 0903257838) See_Comment [Automated Green Plug ssage] The system which generated this result transmitted reference range: 0.0 - 10.0 /100 WBCs. The reference range was not used to interpret this result as normal/abnormal. NRBC x10^3 (test code = 5514760171) <0.01 See_Comment [Automated messa ge] The system which generated this result transmitted reference range: 10*3/?L. The reference range was not used to interpret this result as normal/abnormal. GRAN MAT (NEUT) % (test code = 770-8) 50.6 % IMM GRAN % (test code = 5995276317) 0.20 % LYMPH % (test code = 736-9) 42.1 % MONO % (test code = 5905-5) 5.5 % EOS % (test code = 713-8) 1.2 % BASO % (test code = 706-2) 0.4 % GRAN MAT x10^3(ANC) (test code = 5228990154) 4.31 10*3/uL 1.88-7.09 IMM GRAN x10^3 (test code = 7430644781) <0.03 0-0.06 LYMPH x10^3 (test code = 731-0) 3.58 10*3/uL 1.32-3.29 H MONO x10^3 (test code = 742-7) 0.47 10*3/uL 0.33-0.92 EOS x10^3 (test code = 711-2) 0.10 10*3/uL 0.03-0.39 BASO x10^3 (test code = 704-7) 0.03 10*3/uL 0.01-0.07 Lab Interpretation (test code = 20949-5) [facility] Wcus9529-08-37 05:53:00* Test Item Value Reference Range Interpretation Comme nts POCT PREG (test code = 1605) Negative On board controls acceptable with C Line (test code = 3574) Present POCT PREG LOT # (test code = 3575) HCG [id number] POCT PREG TEST DATE ( test code = 3576) 10/05/2021 Lab Interpretation (test cod e = 42911-9) Normal [facility] Consult Notes Date/Time Note Provider Source 2025-03-08 10:16:53 Associated Order(s): CONSULT CARDIOLOGY; CONSULT CARDIOLOGY [facility] Cardiology Consult PCP: Sarah Yip Date of [...] left heart cath 2 months ago in [facility] showing no significant CAD. PAST MEDICAL HISTORY Past Medical History: Diagnosis Date Anxiety Hypertension PTSD (post-traumatic stress disorder) of family members. Past Surgical History: Procedure Laterality Date CHOLECYSTECTOMY TONSILLECTOMY Family History Problem Relation Age of Onset Heart Mother NV in her 40s Heart Father NV in his 60s ALLERGIES No Known Allergies [...] 130/75 114/54 Pulse: 85 70 64 Resp: 18 17 18 Temp: 36.3 ?C (97.3 ?F) 36.3 ?C [...] (BNP) level Snores Coronary artery disease involving cher-ae heights coronary artery of cher-ae heights heart with angina pectoris Dyslipidemia Nausea, vomiting and diarrhea-suspect Gastroenteritis. Chest pain--atypical. No acute EKG changes. NV ruled out by negative troponin. Reported left heart cath 2 months ago showing no need for intervention. Another left heart cath in October 2024 8 [facility] showed no significant obstruction. Recommend outpatient follow-up. Coronary artery disease-history of PCI stenting. Continue aspirin, Plavix, Imdur, metoprolol, and high intensity Crestor. Follow-up with primary fence post cutter. BNP elevation--with dyspnea on exertion and orthopnea. [...] Ordering referrals and/or communicating with other health patient care technician instructor (when not separately reported), Documenting clinical information in the electronic or other health record, and Independently interpreting results (not separately reported) and/or communicating results to the patient/family/caregiver. This report was dictated using yoone and is subject to voice recognition errors. [...] in the answers given. Brayden Ng MD, TYSHAWN DEMARCO Car Installations Supervisor, Division of Cardiology [facility] 2024-11-01 09:43:46 Associated Order(s): CONSULT CARDIOLOGY [facility] Cardiology Consult Note Patient: Charity Roca [...] palpitations at rest. No syncopal attacks. Primary fence post cutter: Dr. Jerson MONTE dated 11/2023. Reports having [...] Problem Relation Age of Onset Heart Mother NV in her 40s Heart Father NV in his 60s SOCIAL HISTORY Social History [...] (ATARAX) tablet 50 mg, 50 mg, Oral, [id number], Alexey Alegre MD isosorbide mononitrate (IMDUR) 24 [...] CAD Essential hypertension Coronary artery disease involving cher-ae heights coronary artery of cher-ae heights heart with angina pectoris Dyslipidemia Chest pain [...] Results (UTMB/LC, POCT, QUEST) Recent Labs 11/01/24 021 HGBA1C 5.6 Primary fence post cutter: Dr Healy Total Visit Time: 45 mins [...] Ordering referrals and/or communicating with other health patient care technician instructor (when not separately reported), Documenting clinical information in the electronic or other health record, and Independently interpreting results (not separately reported) and/or communicating results to the patient/family/caregiver. This report was dictated using yoone and is subject to voice recognition errors. [...] feel free to call our office at [phone]. I would be happy to be of further assistance for Charity Roca wellbeing. Voice recognition software has been used to create portions of this document. An attempt to proofread has been made to minimize errors. Please do not hesitate to call with any questions. Natasha Hernandes MD 11/01/2024 9:43 AM [place]ander, Division of Cardiology [facility] - Health History and Physical Notes Date/Time Note Provider Source 2024-11-26 21:52:18 [facility] Hospitalist Admission H&P Date of Service: [...] catheterization done about 3-1/2 weeks ago at [place] and at that time patient did not [...] Problem Relation Age of Onset Heart Mother NV in her 40s Heart Father NV in his 60s SOCIAL HISTORY Social History [...] user?: NO Patient will require observation [place] [employer] was verified during stay Alexx Kwok MD [facility] 2024-11-03 12:52:39 Pre-Procedure Sedation Evaluation H&P [...] completed and signed. Alec Antoine MD PGY-5, Fence Post Cutter Pager: [phone] Cosigned by Dane Jurado MD at 11/03/2024 1:11 PM CDT Associated attestation - Dane Jurado MD - 11/03/2024 1:11 PM CDT I agree with the note as written Dane Jurado M.D. Interventional Cardiology Pager: [phone] INTERVENTIONAL CARDIOLOGY [facility] 2024-11-01 18:17:28 MCAWHITE Admit H&P PCP: Rdidhi Montes Date of Service: 11/01/2024 CHIEF COMPLAINT: Chest pain HISTORY OF PRESENT ILLNESS Charity Roca is a 44 year old female with a PMH of morbid obesity, HTN, HLD, CAD s/p PCI (reported 10/06/2023, outpatient fence post cutter is Dr. Arthur), prior pancreatitis, PTSD, depression and anxiety who presented as a transfer from [facility] for unstable angina. The patient reported [...] BP. Cardiology consulted, recommended transfer to [facility] for invasive coronary angiography. Upon arrival to [facility], patient evaluated at bedside. Stated that [...] reflect atelectasis or infiltrate. RL: 781 AFC: 02274 11/01/2024 EKG with Sinus tachycardia, possible LA [...] Qtc 444 ms. Plan: - Admit to [facility] [place] for possible LHC - C/w Heparin gtt - C/w ASA 81 mg QD, Plavix 75 mg QD - Increased Rosuvastatin to 40 mg QD - C/w Imdur 60 mg QD, consider increasing to 90 mg QD - NTG 0.4mg SL q5min prn angina - Morphine 2mg IV q4h prn angina - Telemetry, O2 per protocol, Electrolytes: K >4, Mg>2 - Patient's outpatient fence post cutter is Dr. Arthur PTSD Depression Anxiety Patient [...] additional details. DOS 11/02/24 Rosario Virk MD, [facility] [place]ander Division of Cardiovascular Medicine [facility] 2024-11-01 00:05:09 MEDICINE MEGARI ADMIT H&P Date of Service: 11/01/2024 CHIEF [...] protonix, ketorlac and it did not help. Burlap Spreader: Dr. Arthur PAST MEDICAL HISTORY Past Medical History: Diagnosis Date Anxiety Hypertension PTSD (post-traumatic stress disorder) of family members. Past Surgical History: Procedure Laterality Date CHOLECYSTECTOMY TONSILLECTOMY Family History Problem Relation Age of Onset Heart Mother NV in her 40s Heart Father NV in his 60s ALLERGIES No Known Allergies [...] intervention for the workup and treatment of... [facility] 2023-02-16 01:18:50 Formatting of this n ote [...] (ROBAXIN) tablet 500 mg, 500 mg, Oral, Q6HPJAMES, Flako Mercado MD OLANZapine (ZyPREXA) tablet 15 mg, 15 mg, Oral, QPM, Flako Mercado MD traZODone (DESYREL) tablet 400 mg, 400 mg, Oral, QHS, Flako Mercado MD acetaminophen (TYLENOL) tablet 1,000 mg, 1,000 mg, Oral, Q6HPJAMES, Flako Mercado MD enoxaparin (LOVENOX) injection 40 mg, 40 mg, Subcutaneous, DAILY, Flako Mercado MD lactated ringers IV infusion 1,000 mL, 1,000 mL, IV Infusion, CONTINUOUS, Flako Mercado MD, Last Rate: 100 mL/hr at 08/11/23 2247, 1,000 mL at 02/15/232246 morpHINE (2 mg/mL) injection 2 mg, 2 mg, Slow IV Push, Q4HPRNRogelio Roy, MD, 2 mg at 02/15/232239 traMADoL (ULTRAM) tablet 50 mg, 50 mg, Oral, Q8HPRNRogelio Roy, MD Objective: Vitals: Vitals: 02/15/23 1911 [...] the ACR Incidental Findings Committee;Journal of the [employer] [employer] Volume 7, Issue 10, Pages 957-267, April 2010). CHEST 1 VW Result Date: [...] process is identified in the chest. RL: 5392 END OF REPORT Assessment and plan: Principal [...] IM-INTERNAL MEDICINE STAFF [facility] [place] Procedure Notes Date/Time Note Provider Source 2024-11-03 14:54:32 Procedure(s): [place] CATH PLMT L HRT & ARTS W/NJX & ANGIO IMG S&I; [place] IV DOP EDILSON&/OR PRESS C/EVERETT RSRV JEFRY 1ST VSL; [place] IV DOP EDILSON&/OR PRESS C/EVERETT RSRV JEFRY ADDL VSL Pre-Procedure Diagnose(s): Coronary artery disease involving cher-ae heights coronary artery of cher-ae heights heart with unstable angina pectoris Post-Procedure Diagnose(s): Coronary artery disease involving cher-ae heights coronary artery of cher-ae heights heart with unstable angina pectoris Left Heart Cath/Coronary Angiography Charity Fagan Demario Date of Service: 11/03/2024 2:55 PM Attending Physician: Dane Jurado MD Fellow: Dr. Jones Referring Physician: Dr. Sandra Procedures Performed: LHC/Coronary Angiogram: CPT 07704 FFR of mLAD: CPT 42018 FFR of mRCA: CPT 21985 Indication/Diagnosis: ACS ([place]/NSTEMI) Consent: Risks, benefits, alternatives and complications of the procedure discussed with the patient, who understood and agreed to proceed. Aseptic technique: Chlorprep Local Anesthesia: 1% lidocaine without epinephrine Sedation: Moderate Access site: right femoral artery Closure Method: Angio-Seal Sterile dressing: yes Complications: none Procedures: After patient identification/verification, the patient was thereafter transferred to the rags laborer table. The access site was prepped [...] MD 11/03/2024 2:55 PM IM-INTERVENTIONAL CARDIOLOGY STAFF [facility] Notes <thead> Date/Time Note Provider Source [facility] [id number] 22:07:26 Future Tests Future scheduled test information is unavailable Pending Tests Pending diagnostic test information is unavailable Future Visits Future appointment information is unavailable Referrals to Other Providers <thead> Reason for Referral Referral Start Date Provider Provider Contact Information Provider Address NO PHYSICIAN NO PHYSICIAN MONTSERRAT TERRAZAS MD Work Phone: [facility] [address] [facility] [address] [facility] [address] AIDEN SOLANO MD Work Phone: [phone] [facility] [address] [facility] [address] ENTER NAME IN NOTES OTHER ENTER NAME IN NOTES OTHER ENTER NAME IN NOTES OTHER ENTER NAME IN NOTES OTHER ENTER NAME IN NOTES OTHER ENTER NAME IN NOTES OTHER ENTER NAME IN NOTES OTHER MAGGIE IBRAHIM MD Work Phone: [address] [facility] [address] Future Procedures <thead> Procedure Name Ordered Date [...] 6: 39pm March 05, 2025 6:36pm EKG,INITIAL April 02, 2025 7:07pm Sept ember 2024 Electrocardiogram, Complete April 02, 2025 7:07pm April 02, 2025 7:07pm Future Medications Future medication information is unavailable Patient Instructions <tbody> Otitis Externa, Zrqu-ff-Edmj Allergic Rhinitis, Adult, Ea sy-to-Read Ovarian Cyst, Cega-gh-Ufhr Abdominal Pain, Adult, Easy- to-Read Renal Mass Nonspecific Chest Pain, Adul t, Laih-qj-Uqrc Acetaminophen; Hydrocodone t ablets or capsules Sucralfate tablets Pantoprazole tablets Ciprofloxacin tablets Nonspecific Chest Pain, Adul t, Ywun-hm-Bwee Alprazolam tablets Trazodone Tablets Aspirin Tablets Urinary Tract Infection, Milton lt, Biau-af-Agdq Dehydration, Adult, Easy-to- Read Urinary Tract Infection, Milton lt, Wzlh-le-Pijx Chest Wall Pain, Easy-to-Clarence d Nausea, Adult, Hdod-yt-Fvrp Nonspecific Chest Pain, Adul t Nonspecific Chest Pain, Adul t, Kizh-pk-Nagb Renal Colic, Osxy-fx-Kbof Hematuria, Adult Chest Wall Pain, Easy-to-Tiesha d Abdominal Pain, Adult [facility]2025-09-26 12:25:35 Patient still unable to be located. Patient eloped prior to dispo Cameron Posada [facility]NT[facility] HospitalSutqqg2335-69-64 11:50:39 Patient called from [facility], no answer, registration also unable to locate. [facility] Hospital[facility]timvo2334-72-34 10:33:29 Pt states she has RLQ abd pain with N/V and diarrhea that began last night. Took tylenol 8am today. Briseida Emery RNTri[facility] HospitalRnewne0365-29-25 15:46:33 Patient Care Team <thead> Team Status: Active Member Role Status Dates ENTER NAME IN NOTES OTHER primary care physician Tyson MIRANDA , DO Emergency Provider Active JAN COX Next of Kin Active PIYUSH JUAREZ Emergency Contact Active CHARITY ROCA Guarantor Active [facility]2025-09-20 15:46:33 Future Tests Future scheduled test information is unavailable Pending Tests Pending diagnostic test information is unavailable Future Visits Future appointment information is unavailable Referrals to Other Providers <thead> Reason for Referral Referral Start Date Provider Provider Contact Information Provider Address NO PHYSICIAN NO PHYSICIAN MONTSERRAT TERRAZAS MD Work Phone: [address] [address] AIDEN SOLANO MD Work Phone: [address] [place] [address] ENTER NAME IN NOTES OTHER ENTER NAME [...] is unavailable Patient Instructions <tbody> Otitis Externa, Aqxj-fb-Ahgc Allergic Rhinitis, Adult, Ea sy-to-Read Ovarian Cyst, Gqov-db-Juxb Abdominal Pain, Adult, Easy- to-Read Renal Mass Nonspecific Chest Pain, Adul t, Lczn-ax-Vryn Acetaminophen; Hydrocodone t ablets or capsules Sucralfate tablets Pantoprazole tablets Ciprofloxacin tablets Nonspecific Chest Pain, Adul t, Apjc-xc-Nzgb Alprazolam tablets Trazodone Tablets Aspirin Tablets Urinary Tract Infection, Milton lt, Cxxt-er-Dtfy Dehydration, Adult, Easy-to- Read Urinary Tract Infection, Milton lt, Fyfm-uu-Plxh Chest Wall Pain, Easy-to-Clarence d Nausea, Adult, Coyr-ox-Lwbt Nonspecific Chest Pain, Adul t Nonspecific Chest Pain, Adul t, Cunl-tv-Xodc Renal Colic, Arro-pj-Lnxs Hematuria, Adult Chest Wall Pain, Easy-to-Tiesha d [facility] [id number] 18:28:02 PT LEFT AMA. AMA PAPERS signed and on chart. PT COUNSELED TO REMAIN, BUT PT DECLINED. LEFT via personal means of transportation. VS not taken, NO ATAXIA, GCS 15, AO4. Angelita Patino [facility] Center[facility]qklle3785-62-37 17:19:04 Pt states she has had mid to left sided chest pain that radiates to left shoulder since 9am today, took 324mg aspirin, and 1nitro, with no relief, also c/o N/V. Hx cardiac stent, ptsd, anxiety, depression Briseida Emery [facility] CenterLqezon3700-01-07 12:06:52 Problem: Falls, Risk of Goal: Absence [...] (Actual) Outcome: Adequate for discharge Daniela Trujillo [facility] CenterIhnull8922-96-63 21:18:20 Problem: Falls, Risk of Goal: Absence [...] VTE diagnosis (Actual) Outcome: Progressing as expected [place] [id number] 19:43:33 Patient admitted to [facility] Med Surg for diagnosis of chest pain. Patient agrees to admission, discussed plan of care with patient and family. Patient is awake, A&Ox4, RR even and unlabored on RA. Color appropriate for race. No adverse reaction to medications administered while in ED. Belongings with patient to unit. Tomi Hope [place] [id number] 19:39:03 Nurse Report Report given to Becky RAMIREZ. Chief complaint, assessment findings, infusion verify and orders reviewed. Tomi Hope RN [place] [id number] 13:48:43 PT REPORTS SUBSTERNAL CHEST PAIN THAT STARTED THIS MORNING. PT DESCRIBES IT "FEELS LIKE AN ELEPHANT IS SITTING ON MY CHEST" PT ALSO REPORTS EMESIS AND INABILITY TO "KEEP ANYTHING DOWN FOR 4 DAYS" Jovanna Meyer [place] [id number] 13:29:00 Associated Order(s): EKG-12 Lead ROUTINE ONCE Pre-Procedure Diagnose(s): Chest pain, unspecified type Post-Procedure Diagnose(s): Chest pain, unspecified type [facility] Emergency Department Note Patient Name: Charity Roca Date of : 1980 45 year old female Treatment Room: [address] [place] [address] Primary Care Physician: Riddhi Montes Patient Escorted by: Self [9] Mode of Arrival: Personal means [1] EMS Treatment Prior to ED Arrival: HEALTH CLAIMS EXAMINER treatment: None Travel and Exposure Screening: Symptoms [...] any associated fever History provided by: Patient conveyor installer used: No Past Medical History/Immunizations: Past Medical [...] 0.01 - 0.07 10*3/uL COMP. METABOLIC PANEL (00162) - Abnormal NA 138 135 - 145 [...] URINALYSIS CBC WITH DIFF COMP. METABOLIC PANEL (24416) TROPONIN I N-TERMINAL PRO-BNP LIPASE Influenza A [...] MD -- 03/07/25 1340 First Provider Evaluation AMNA MOSLEY MD -- AdmissionCare Guideline: Chest Pain, Inpatient Based [...] embolism) AdmissionCare documentation entered by: Amna Evans [facility] [employer], 29th edition, Copyright ? 2024 [facility] All Rights Reserved. [id number]:43:30-05:00 ED COURSE Diagnosis/Impression as of 03/07/25 2233 Chest pain, unspecified type Difficulty voiding Diarrhea, unspecified type Results Procedures: EKG-12 Lead ROUTINE ONCE Date/Time: 03/07/2025 1:55 PM Performed by: Amna Mosley MD Authorized by: Amna Mosley MD ECG interpreted by ED Physician in the absence of a fence post cutter: yes Interpretation: Interpretation: normal Quality: Tracing quality: [...] Differential diagnosis includes but not limited to NV, GERD, gastroenteritis, dehydration, electrolyte imbalance. Patient emergency [...] Dr Hernandes cardiology who reccomends admission to [facility]. Patient has history of atypical chest pains, Risk OTC drugs. Prescription drug management. Parenteral controlled substances. Decision regarding hospitalization. Flowsheet Documentation: Scoring Tools: No data recorded HEART Score: 4 Disposition/Condition: ED Disposition ED Disposition Admit - Observation Condition -- Comment Provider Care Team:: [facility] [51] Discharge Medications: Current Discharge Medication [...] Follow-up: Electronically signed by: Amna Mosley MD 03/07/252232 [facility] - Avhfjc9145-09-60 13:29:00 AdmissionCare Guideline: Chest Pain, Inpatient Based [...] embolism) AdmissionCare documentation entered by: Amna Evans [facility] [employer], 29th edition, Copyright ? 2024 [facility] [employer] [facility] All Rights Reserved. [id number]:43:30-05:00 [facility] HospitalDhqisf0094-60-67 21:02:37 Patient Care Team <thead> Team Status: Active Member Role Status Dates ENTER NAME IN NOTES OTHER primary care physician Activ nancy MIRANDA DO Emergency Provider Active JAN COX Next of Kin Active PIYUSH JUAREZ Emergency Contact Active CHARITY ROCA Guarantor Active [facility] [id number] 21:02:37 Future Tests Future scheduled test information is unavailable Pending Tests <thead> Test Name Ordered Date Scheduled Date Troponin T High Sensitivity March 05, 2025 8: 43pm Future Visits Future appointment information is unavailable Referrals to Other Providers <thead> Reason for Referral Referral Start Date Provider Provider Contact Information Provider Address NO PHYSICIAN NO PHYSICIAN MONTSERRAT TERRAZAS MD Work Phone: [address] [address] AIDEN SOLANO MD Work Phone: [address] [place] [phone] ENTER NAME IN NOTES OTHER ENTER NAME [...] Resuscitation Status October 13, 2024 11:19pm Apr hi 2024 11:17pm ACTIVATE TELEMETRY October 13, 2024 [...] is unavailable Patient Instructions <tbody> Otitis Externa, Scti-xo-Nxfu Allergic Rhinitis, Adult, Ea sy-to-Read Ovarian Cyst, Wbas-ut-Qgga Abdominal Pain, Adult, Easy- to-Read Renal Mass Nonspecific Chest Pain, Adul t, Stqx-ab-Qvbd Acetaminophen; Hydrocodone t ablets or capsules Sucralfate tablets Pantoprazole tablets Ciprofloxacin tablets Nonspecific Chest Pain, Adul t, Msbk-us-Vzdo Alprazolam tablets Trazodone Tablets Aspirin Tablets Urinary Tract Infection, Milton lt, Neox-nf-Prqo Dehydration, Adult, Easy-to- Read Urinary Tract Infection, Milton lt, Xsgx-fi-Tomy Chest Wall Pain, Easy-to-Tiesha d Nausea, Adult, Lwrw-zm-Uspg Nonspecific Chest Pain, Adul t Nonspecific Chest Pain, Adul t, Gebn-zk-Uwvl Renal Colic, Xdsr-ho-Urwm Hematuria, Adult Chest Wall Pain, Easy-to-Clarence d [facility] Nuw8197-85-74 20:16:43 Pt requesting to leave AMA. ERP notified. PT counseled to remain, risk of leaving AMA including discussed with pt. Pt continued to decline further ER evaluation at this time. AMA papers signed,witnessed, and placed on patients chart. Pt left ambulatory, steady gait, no ataxia noted, GCS 15, and A&Ox4. Tomi Hope [facility] CenterQuklsn9103-18-78 20:15:00 Pt requesting to leave, removed IV herself. Signed AMA paper and states "I have everything at home, I am ready to go." [facility]Jmahre7702-83-05 16:33:30 [facility] for upper mid abdominal pain, nausea/vomiting since yesterday. Patient had chronic pancreatitis and feels like this is similar pain. 4mg Zofran given HEALTH CLAIMS EXAMINER with no relief. Presents vitally stable. Tatianna Felipe [facility] CenterEtxejf4564-69-13 15:08:22 Chief Complaint Patient presents with Follow-up Follow up for insomnia medication refills Marbella Oh LVN [facility]2025-06-10 22:30:00 No answer in lobby. Razia Yost [facility] CenterWhghao6142-09-73 22:16:00 Pt called by Erp no answer in lobby. [place] 612975-06-10 21:01:27 Arrives to ED ambulatory. States she was here yesterday for same CC and was told to come back if new symptoms presented. Today she developed diarrhea and vomiting. Sates pain is still the same. Connie Rivera [facility] CenterTbkztq0540-70-59 20:55:00 Called for pt in the lobby No response I therefore did not see or evaluate this pt MD Jose Ortiz Wakili S, MD 12/15/242216 [place] 612975-06-09 16:49:16 Patient given discharge instructions, and verbalized no further concerns or questions. Skin p/w/d, rr equal and non labored. A&OX4. Ambulated independently with a steady gait in stable condition. Riddhi Su [facility] CenterMpchch7939-68-02 13:28:17 Abdominal pain after eating and drinking since last night. Also endorsing nausea. Denies chest pain, dysuria. HX: 1 stents, +Plavix, pancreatitis, PTSD, anxiety, depression. Tatianna Felipe [place] 077835-06-05 21:31:28 Patient Care Team <thead> Team Status: Active Member Role Status Dates ENTER NAME IN NOTES OTHER primary care physician Nida TYSON MD Emergency Provider Active SOLEDAD ALONSO Admitting Provider Active SOLEDAD ALONSO Attending Provider Active JAN COX Next of Kin Active PIYUSH CURTISRIDGE Emergency Contact Active CHARITY ROCA Guarantor Active [facility] [id number] 21:31:28 Thank you for choosing us for your medical care and it was a pleasure taking care of you. Your provider s name is nurse practitioner Cathy Alegria DNP, GRINDING WHEEL FACER-BC. Follow up with your primary care provider [...] NO PHYSICIAN MONTSERRAT TERRAZAS MD Work Phone: [address] [address] AIDEN SOLANO MD Work Phone: [address] [place] [phone] ENTER NAME IN NOTES OTHER ENTER NAME [...] is unavailable Patient Instructions <tbody> Otitis Externa, Augj-ut-Chjv Allergic Rhinitis, Adult, Ea sy-to-Read Ovarian Cyst, Anqm-hn-Sref Abdominal Pain, Adult, Easy- to-Read Renal Mass Nonspecific Chest Pain, Adul t, Nfaj-zx-Tydp Acetaminophen; Hydrocodone t ablets or capsules Sucralfate tablets Pantoprazole tablets Ciprofloxacin tablets Nonspecific Chest Pain, Adul t, Vgkm-yl-Jmcd Alprazolam tablets Trazodone Tablets Aspirin Tablets Urinary Tract Infection, Milton lt, Ztmh-ob-Enjw Dehydration, Adult, Easy-to- Read Urinary Tract Infection, Milton lt, Uhvt-td-Biyp Chest Wall Pain, Easy-to-Tiesha d Nausea, Adult, Xirm-au-Aree Nonspecific Chest Pain, Adul t Nonspecific Chest Pain, Adul t, Oobe-zh-Waqr Renal Colic, Pqsv-ly-Yetp Hematuria, Adult Chest Wall Pain, Easy-to-Tiesha d [facility]2025-06-03 21:50:29 Pt requesting to leave AMA. ERP notified. PT counseled to remain, risk of leaving AMA including discussed with pt. Pt continued to decline further ER evaluation at this time. AMA papers signed,witnessed, and placed on patients chart. Pt left ambulatory. GCS 15, and A&Ox4. Connie Rivera [facility]NT[facility] HospitalJnovwc1408-71-77 20:00:15 EKG done at 1957 and given to ER provider. [facility] HospitalAjbnvf1497-24-28 19:51:23 Patient comes in with chest pain and shortness of breath that started about 45-60 minutes. Patient denies otc medications. Also reports nausea. Patient found on the floor in the waiting room when checking in. Provider in triage with medical technical writer. Skin p/w/d, rr equal and non labored. A&Ox4. Talking in full sentences. Riddhi Su [facility] CenterTcaegb4624-85-39 13:25:33 Problem: Falls, Risk of Goal: Absence [...] Outcome: Adequate for discharge T Maame Chen [facility] CenterJfgzwh6487-77-96 01:17:18 Problem: Falls, Risk of Goal: Absence [...] specified parameters Outcome: Progressing as expected T [place] 612975-05-22 22:27:16 Patient admitted to [facility] Med Surg for diagnosis of Chest pain Patient agrees to admission, discussed plan of care with patient and family. Patient is awake, alert, oriented, resp reg unlabored, color appropriate for race, PIV intact No adverse reaction to medications administered while in ED Belongings with patient to unit Report to Sneha RAMIREZ T Santi Delgadillo [place] 76215-05-22 22:26:34 Nurse Report Report given to Sneha RAMIREZ. Chief complaint, assessment findings, infusion verify and orders reviewed. Santi Delgadillo RN T [place] 612975-05-22 20:45:[address] Kwok pertaining to medication orders. BP was rechecked to be 125/[address] Kwok stated to hold the Nitro Paste, continue the Haldol 2mg administration, and give the Roll PRN. [place] 742115-05-22 17:49:47 Pt to ED via [facility] CO constant CP that radiates into her L shoulder and down her arm x 1 hour. Reports it is aggravated by movement/exertion. EMS gave nitro x 1, pt had no relief. Pt also took 324mg ASA. Reports fatigue and generalized malaise for the past week. Hx of one stent placement 1 yr ago. T Adeline Montelongo [place]NT[place] 612975-05-22 17:48:00 [facility] Emergency Department Note Patient Name: Charity Roca Date of : 1980 44 year old female Treatment Room: [facility] FT/VNPI08-78 Primary Care Physician: Riddhi Montes Patient Escorted by: Self [9] Mode of Arrival: EMS - [facility] [45] EMS Treatment Prior to ED Arrival: HEALTH CLAIMS EXAMINER treatment: Aspirin;NTG HEALTH CLAIMS EXAMINER treatment comments: 324mg ASA Travel and Exposure [...] vw Cbc with Diff Comp. Metabolic Panel (56862) Lipase Magnesium N-Terminal Pro-Bnp Troponin I No [...] on file Follow-up: Electronically signed by: Klaudia Narvaze DO 11/26/24 2321 T [facility] - Mukgez7040-11-65 15:49:26 Patient Care Team <thead> Team Status: Active Member Role Status Dates ENTER NAME IN NOTES OTHER primary care physician Nida TYSON MD Emergency Provider Active SOLEDAD ALONSO Admitting Provider Active SOLEDAD ALONSO Attending Provider Active JAN COX Next of Kin Active PIYUSH JUAREZ Emergency Contact Active CHARITY ROCA Guarantor Active [facility] Vgp2474-93-29 15:49:26 Thank you for choosing us for your medical care and it was a pleasure taking care of you. Your provider s name is nurse practitioner Cathy Alegria DNP, GRINDING WHEEL FACER-. Follow up with your primary care provider [...] NO PHYSICIAN MONTSERRAT TERRAZAS MD Work Phone: [address] [facility] [address] AIDEN SOLANO MD Work Phone: [address] [place] [phone] ENTER NAME IN NOTES OTHER ENTER NAME [...] is unavailable Patient Instructions <tbody> Otitis Externa, Unjl-fr-Oway Allergic Rhinitis, Adult, Ea sy-to-Read Ovarian Cyst, Oobl-sn-Vrhk Abdominal Pain, Adult, Easy- to-Read Renal Mass Nonspecific Chest Pain, Adul t, Cfnq-qr-Fonc Acetaminophen; Hydrocodone t ablets or capsules Sucralfate tablets Pantoprazole tablets Ciprofloxacin tablets Nonspecific Chest Pain, Adul t, Vzln-ab-Bzbz Alprazolam tablets Trazodone Tablets Aspirin Tablets Urinary Tract Infection, Milton lt, Irmj-qu-Sdsd Dehydration, Adult, Easy-to- Read Urinary Tract Infection, Milton lt, Dcxu-mn-Szji Chest Wall Pain, Easy-to-Tiesha d Nausea, Adult, Hame-ws-Xazd Nonspecific Chest Pain, Adul t Nonspecific Chest Pain, Adul t, Zpls-hd-Ynym Renal Colic, Tutu-cw-Zjhh Hematuria, Adult [facility] Zwh0056-01-69 22:15:04 Radiology reported to RN that pt was not in room when he arrived to take her for CT. Aprox 10 min later pt still not in room. Pt eloped before dispo. Becky Rios [facility] CenterKdnuaz1532-68-05 20:41:53 C/o bilateral lower back pain x1 day Took APAP at 5pm with no relief Dysuria Renato Doan [facility] CenterLdrcbw4843-52-10 20:36:00 [facility] Emergency Department Note Patient Name: Charity Roca Date of : 1980 44 year old female Treatment Room: Room/bed info not found Primary Care Physician: Riddhi Montes Patient Escorted by: Self [9] Mode of Arrival: Personal means [1] EMS Treatment Prior to ED Arrival: HEALTH CLAIMS EXAMINER treatment: None Travel and Exposure Screening: Symptoms [...] Electronically signed by: Bushra Rios DO 11/14/242213 [facility] - Dkuhnt4799-87-28 01:03:17 Pt given printed and verbal discharge [...] gait, in no apparent distress, Angelita Patino [place] 077835-05-06 19:56:35 Pt given urine cup and placed back into lobby with instructions for collecting urine sample. [place] 612975-05-06 19:52:11 Pt arrived ambulatory without assist. Pt c/o left lower abd pain that started around 12pm today. Shaneka Atkinson [place] 077835-05-06 19:51:00 [facility] Emergency Department Note Patient Name: Charity Roca Date of : 1980 44 year old female Treatment Room: [facility] ED [facility] Primary Care Physician: Riddhi Montes Patient Escorted by: Family [5] Mode of Arrival: Personal means [1] EMS Treatment Prior to ED Arrival: HEALTH CLAIMS EXAMINER treatment: None Travel and Exposure Screening: Symptoms [...] History provided by: Patient and medical records conveyor installer used: No Abdominal Pain Pain location: LUQ [...] contrast, 11/10/2024 8:45 PM. Ordering Physician: BOB GARICA. History: Abdominal pain, acute, nonlocalized LEFT SIDED [...] Additional chronic findings as detailed above. RL: 3450 End of Report Lab Results: Lab Results [...] 0.01 - 0.07 10*3/uL COMP. METABOLIC PANEL (39133) - Abnormal NA 137 135 - 145 [...] contrast Cbc with Diff Comp. Metabolic Panel (43926) Urinalysis POCT TEST Lipase Orders Placed This [...] illness or injury Details: Will follow-up with OB-GRINDER SET UP OPERATOR CENTERLESS Amount and/or Complexity of Data Reviewed Labs: [...] Riddhi Montes Relationship: PCP - General KelleeMarcio [facility] [address] [facility] [id number] Electronically signed by: Bob Garcia MD 11/11/24 0024 [facility]2025-04-30 10:58:35 Pt tolerating meals Up with minimal assist Right site clean, dry and intact; covered with gauze and tegaderm [facility] Laya Langley RNTri[facility] HospitalIiuvqf0842-18-35 06:19:25 Problem: Falls, Risk of Goal: Absence [...] breakdown Outcome: Progressing as expected Anuradha Heard [facility] CenterVizqyt2996-00-39 19:16:34 Problem: Falls, Risk of Goal: Absence of falls Outcome: Progressing as expected Problem: Discharge Planning Goal: Adequate to move to next level of care Outcome: Progressing as expected Goal: Knowledge of medication management Outcome: Progressing as expected Renato Mott [facility] CenterNlyvzq8404-84-20 04:24:10 Problem: Falls, Risk of Goal: Absence [...] airway Outcome: Progressing as expected Omaira Diaz [facility] CenterAazvqt3036-38-31 07:22:14 Problem: Falls, Risk of Goal: Absence of falls 11/02/2024720 by Omaira Diaz RN Outcome: Progressing as expected 11/02/2024 0720 by Omaira Diaz RN Outcome: Progressing as expected Problem: Discharge Planning Goal: Adequate for discharge 11/02/2024 0721 by Omaira Diaz RN Outcome: [...] RN Outcome: Progressing as expected 11/02/2024719 by Diaz, Winsome, RN Outcome: Progressing as expected Goal: Adequate work of breathing 11/02/2024 0721 by Omaira Diaz RN Outcome: Progressing as expected 11/02/2024 0720 by Omaira Diaz RN Outcome: Progressing as expected Goal: Patent airway 11/02/2024 07 by Omaira Diaz RN Outcome: Progressing as expected 11/02/2024 07 by Omaira Diaz RN Outcome: Progressing as expected [place] 742115-04-28 07:21:23 Problem: Falls, Risk of Goal: Absence [...] Goal: Patent airway Outcome: Progressing as expected [facility]2025-04-27 14:02:33 Report given to JAMES Trejo. [facility] Susie Willard [facility] CenterHdkdkw1511-64-48 08:41:16 Images from the original note were not included. Pharmacy Recommendations for Patient Admission: Consider lowering dose of famotidine to 20mg once daily as patient has been taking this dose at home. The HEALTH CLAIMS EXAMINER medication list has been updated and reflected in the chart below. Please use the HEALTH CLAIMS EXAMINER Med List for ordering home doses during admission. Patient Adherence: Adherent to all medications. Source(s) used in interview: Patient Interview limitations: None Medications Added Medications Removed Medications Modified Alprazolam dose reduced to 1mg BID prn Famotidine ordered as 20mg BID Methocarbamol ordered as 500mg Q6H prn Allergies as of 10/31/2024 (No Known Allergies) Pharmacy Updated HEALTH CLAIMS EXAMINER Med List Medication Sig aspirin 81 mg [...] in the evening.) Outpatient Pharmacy Contact Information: [facility] [id number] - [place], [place] - [address] [facility] [address] [facility] [address] [facility] - [place], [place] [address] [facility] [address] [facility]/pharmacy #[id number] - [place], [place] - [address] [address] Thank you for the opportunity to participate in the care of this patient. Surekha Rowland RPH 8:38 AM, 11/01/2024 [facility] Department of Pharmacy - [facility] Phone: ADC: [phone] T Surekha Rowland [facility] Mvfpks6121-22-04 01:15:13 Problem: Falls, Risk of Goal: Absence [...] Absence of infection Outcome: Progressing as expected [facility]2025-04-27 00:27:06 Patient states pain to chest no 6/10-appears much more comfortable, Bp normotensive. Transported via W/C to 2217. Patient alert, warm, dry, pink, in no distress upon departure from ER [facility]2025-04-27 00:22:38 Nurse Report Report given to Bhupinder RAMIREZ. Chief complaint, assessment findings, infusion verify and orders reviewed. Plan of care discussed at bedside with patient. Patient verbalized understanding. MAGGIE CACERES RN [facility]2025-04-26 23:15:00 Patient continues to C/O persistent sharp midsternal chest pain /. Medicated as ordered with GI cocktail po and Morphine 4 mg IV. [facility]2025-04-26 22:15:00 Dr Garcia at bedside. Medicated with NTG 0.4 mg Sl for sharp chest pain 10/10 without relief. Patient then medicated with Zofran 4 mg Iv and Morphine 4 mg IV as ordered. Patient anxious, hypertensive. [place] 742115-04-26 21:36:50 C/O onset sharp midsternal chest pain that radiates to left arm, left shoulder, and left scapula area-has been steadily worsening. Has had nausea and vomiting. Patient has had NV in the past, has cardiac stent X1 placed in September of last year. O2 at 2 liters/min placed without improvement to chest pain. [facility] Maggie Caceres [facility] CenterRfxmkz4544-85-67 21:24:00 Associated Order(s): EKG-12 Lead ROUTINE ONCE Pre-Procedure Diagnose(s): Chest pain, unspecified type Post-Procedure Diagnose(s): Chest pain, unspecified type [facility] Emergency Department Note Patient Name: Charity Roca Date of : 1980 44 year old female Treatment Room: 9/9 Primary Care Physician: Riddhi Montes Patient Escorted by: Family [5] Mode of Arrival: Personal means [1] EMS Treatment Prior to ED Arrival: HEALTH CLAIMS EXAMINER treatment: Other (comment) HEALTH CLAIMS EXAMINER treatment comments: Protoniz, 4 baby ASA, Toradol [...] been vomiting about five times today. Pt's Burlap Spreader Dr Peralta in [place]. No known aggravating or relieving factors. Pt has taken ASA 324 mg HEALTH CLAIMS EXAMINER in the ED. Pt smokes 1/3PPD , No ETOH. Deneis any illcit drug use. No prolonged immobilization. No OCA. No leg edema or calf pain. Deneis any URI symptoms. No abdominal pain History provided by: Significant other and patient conveyor installer used: No Chest Pain Pain location: Epigastric [...] S/P Stent X 06 September 2023 Q-wave NV Tetanus received in last 5 years: Unknown [...] reflect atelectasis or infiltrate. RL: 781 AFC: 55505 Lab Results: Lab Results COMP. METABOLIC PANEL (85621) - Abnormal Result Value Ref Range NA [...] 1 vw TROPONIN I COMP. METABOLIC PANEL (81576) LIPASE, SERUM CBC WITH DIFF POCT Test Cbc with Diff Basic Metabolic Panel (NA, K, CL, CO2, GLUCOSE, BUN, CREATININE, CA) Troponin I Procalcitonin Influenza A B RSV COVID NAAT Lab Only COVID Interpretation N-Terminal Pro-Bnp Lipid Panel (97016)(Total Cholesterol, Triglycerides, HDL) Glycosylated Hemoglobin (A1C) Urinalysis [...] care. AdmissionCare documentation entered by: Bob Garcia [facility] [employer], 28th edition, Copyright ? 2023 [facility] [employer] All Rights Reserved. 5615-97-41G38:59:01-05:00 ED COURSE Diagnosis/Impression as of 11/03/24 0459 Chest pain, unspecified type Procedures: EKG-12 Lead ROUTINE ONCE Date/Time: 10/31/2024 9:32 PM Performed by: Bob Garcia MD Authorized by: Bob Garcia MD ECG interpreted by ED Physician in the absence of a fence post cutter: yes Previous ECG: Previous ECG: Compared to [...] - Observation Condition -- Comment Treatment Team: [facility] [[id number]] Discharge Medications: Current Discharge Medication List STOP [...] by: Bob Garcia MD 11/03/24 0459 [facility] - Xjdltj5835-88-30 21:24:00 AdmissionCare Guideline: Chest Pain, Inpatient Based [...] care. AdmissionCare documentation entered by: Bob Garcia [facility], 28th edition, Copyright ? 2023 [facility] Administrationmechatronic systemtechnik [facility] All Rights Reserved. 9942-65-80S88:59:01-05:00 [facility] HospitalRvyxfn9655-80-01 23:53:58 Awake, alert oriented X4, respiratory even [...] noted upon discharge. Pt ambulated to the [facility] with steady gait. Connie Rivera [facility] CenterJbixty9482-57-88 20:14:29 Patient arrived ambulatory to ED c/o upper abdominal pain that radiates to the left side. Went to PCP today and they told her if it was still hurting come to the ER. Toradol taken today with no relief. States she feels like it is her pancreas. Jen Merrill [facility] CenterArlpdt0060-42-82 20:12:00 [facility] Emergency Department Note Patient Name: Charity Roca Date of : 1980 44 year old female Treatment Room: TX1/TX1 Primary Care Physician: Riddhi Montes Patient Escorted by: Family [5] Mode of Arrival: Personal means [1] EMS Treatment Prior to ED Arrival: HEALTH CLAIMS EXAMINER treatment: Medication (comment) HEALTH CLAIMS EXAMINER treatment comments: Toradol Travel and Exposure Screening: [...] 0.01 - 0.07 10*3/uL COMP. METABOLIC PANEL (84887) - Abnormal NA 136 135 - 145 [...] contrast Cbc with Diff Comp. Metabolic Panel (20969) Lipase Urinalysis Orders Placed This Encounter Medications [...] A) Hiatal Hernia, UTI Disposition/Condition: Home, Pepcid, Roll/Zofran prn, Cefdinir x 7 days, ER warnings, [...] Electronically signed by: Juanjose Barker MD 10/23/242340 [facility] HospitalEittdi1181-18-00 10:16:39 Patient is here for a follow up from the hospital for chest pain and back pain. She needs a refill on the Hydroxyzine Pamoate 50 mg. She scored high for depression and anxiety but reports that she is able to use her coping mechanisms, has a place where she feels safe, and a safe person. [facility]2025-04-09 19:51:24 Patient Care Team <thead> Team Status: Active Member Role Status Dates ENTER NAME IN NOTES OTHER primary care physician Nida TYSON MD Emergency Provider Active SOLEDAD ALONSO Admitting Provider Active SOLEDAD ALONSO Attending Provider Active JAN COX Next of Kin Active PIYUSH JUAREZ Emergency Contact Active CHARITY ROCA Guarantor Active [facility]2025-04-09 19:51:24 [facility]2025-04-09 19:51:24 Future Tests Future scheduled test information is unavailable Pending Tests <thead> Test Name Ordered Date Scheduled Date Troponin T High Sensitivity October 14, 2024 11:1 7pm Future Visits Future appointment information is unavailable Referrals to Other Providers <thead> Reason for Referral Referral Start Date Provider Provider Contact Information Provider Address NO PHYSICIAN NO PHYSICIAN MONTSERRAT TERRAZAS MD Work Phone: [address] [facility] [address] AIDEN SOLANO MD Work Phone: [phone] [facility] [address] [facility] [address] ENTER NAME IN NOTES OTHER ENTER NAME [...] is unavailable Patient Instructions <tbody> Otitis Externa, Yufz-al-Hvad Allergic Rhinitis, Adult, Ea sy-to-Read Ovarian Cyst, Abuj-ni-Iixd Abdominal Pain, Adult, Easy- to-Read Renal Mass Nonspecific Chest Pain, Adul t, Zkee-sp-Cohh Acetaminophen; Hydrocodone t ablets or capsules Sucralfate tablets Pantoprazole tablets Ciprofloxacin tablets Nonspecific Chest Pain, Adul t, Gdoj-ph-Hzls Alprazolam tablets Trazodone Tablets Aspirin Tablets Urinary Tract Infection, Milton lt, Objo-uf-Gdfc Dehydration, Adult, Easy-to- Read Urinary Tract Infection, Milton lt, Uzxf-kw-Bqsw Chest Wall Pain, Easy-to-Tiesha d Nausea, Adult, Aktu-cx-Ymnp Nonspecific Chest Pain, Adul t Nonspecific Chest Pain, Adul t, Dmxc-ek-Jkgq [facility]2025-04-08 02:45:03 Pt given printed and [...] gait, in no apparent distress. Jeana Pringle [facility] - Kwwetc9022-05-07 22:25:27 Pt arrived ambulatory without assist. Pt c/o chest pain that started around 8pm, and UTI symptoms that started yesterday. Shaneka Atkinson [facility] - Zhxlbk1524-71-40 01:23:02 Pt given printed and verbal discharge [...] with steady gait, in no apparent distress, [place] [address]99-01-12 00:57:31 ERP at bedside. [place] 09399-01-12 00:09:25 07/18/24 2356 07/19/24 0000 07/19/24 0008 Orthostatic Vitals BP 132/56 (!) 139/92 (!) 157/112 BP Location Left arm Left arm Right leg Position Lying Sitting Standing Pulse 79 78 78 NYA Merrill [place] 077835-01-11 23:44:12 Patient states "feeling like crap. Every time I stand up everything gets dizzy, black, and I feel like I am going to pass out." [place] 094525-01-11 22:39:11 [facility] by [facility]. [...] of potassium). Pt took home medications today TOR MECHANIC Shaneka Atkinson [facility] CenterIauyei7821-01-49 01:30:39 PT D/C home. GCS15, VS stable. [...] have someone drive her home. NYA Ayala [facility] CenterQcnxtr2395-73-49 19:51:20 Pt arrives ambulatory to ED c/o N/V/D x3 days and says today began having right side abdominal pain. NYA Rios [facility] CenterWbxiop5186-55-66 02:58:12 Pt given printed and verbal discharge [...] gait, in no apparent distress. [facility]2024-12-15 01:57:43 Pt arrives ambulatory to ED c/o "spider bite" upper right abdomen area. She says she squeezed it right before coming in and puss came out of it, leaving a black hole. So she came in to be evaled. NYA Rios [facility] CenterNlwuua1425-55-49 00:27:31 Pt given printed and verbal discharge [...] gait, in no apparent distress, NYA Delgadillo [facility] CenterQmpbcl5554-86-31 22:55:00 Report given to JAMES Delgadillo NYA Emery [place] 077834-12-08 21:23:27 Patient arrived ambulatory to ED c/o abdominal pain that started Saturday. Patient recently had heart cath placed on . States "haven't been keeping anything down. I can't even keep my medications down." NYA Merrill [facility] CenterCzqjdv8226-58-12 02:39:24 Pt given printed and verbal discharge [...] gait, in no apparent distress, NYA Delgadillo [facility] CenterPtvjky6977-06-55 00:46:48 Report to Leona RAMIREZ. NYA Montelongo [facility] CenterKxkbir3084-33-86 22:01:17 Patient arrived ambulatory to ED c/o chest pain that started around 1900 tonight. Patient took 4 baby ASA HEALTH CLAIMS EXAMINER. Sharp chest pain that radiates to left shoulder. NYA Merrill [facility] CenterKprhdq5158-58-78 13:02:38 Chief Complaint Patient presents with Shoulder Pain Pt complains of left shoulder pain that has been in pain for last 3 years. Pain is getting worse. No injury. No occupation. Pt has been doing PT for shoulder. She is also taking methocarbamol for pain however it is not helping. NYA Zazueta Mjnkxx1803-62-35 13:33:08 Patient given discharge instructions with readback, discussed prescriptions and follow up care. . Steady gait with NAD noted. NYA Giles V, [facility] CenterPhgsla8263-34-63 11:42:01 Patient had a fall on Saturday and came into ED to be seen. Had pain meds and scan performed with no significant findings. Patient called her PCP and they told her to go to ER because she could have a concussion or just feel worse. NYA Cronin [facility] CenterDeyoka0688-36-29 10:27:22 Chief Complaint Patient presents with Physical Patient is fasting. No other issues to discuss Jennifer Del Castillo MA II [facility]tucknicolUnited HospitalTviohb8037-62-16 22:18:24 Pt given printed and verbal discharge [...] gait, in no apparent distress, NYA Delgadillo [facility] CenterGjemmo1342-00-68 20:40:54 Okay to release information to father Piyush Demario per patient NYA Atkinson [place] 077834-11-10 20:18:[address] scan and brought to [facility] with RN and trauma team. Continuous cardiac monitoring and serial vital signs monitored by Santi RAMIREZ. Santi Delgadillo RN [place] [address]-11-10 19:58:[address] scan with RN and trauma team. Continuous cardiac monitoring and serial vital signs monitored by Santi RAMIREZ. Santi Delgadillo RN [place] [address]-11-10 18:55:00 Received report from Juliano RAMIREZ [place] [address]-11-10 18:35:54 Report received from EMS. Trauma protocol initiated. Trauma team members at bedside, primary and secondary survey in progress. Pt placed on continuous cardiac monitoring, pulse oximetry, and serial vital signs. Wellington Dorantes RN [place] [address]-11-10 18:31:04 Patient arrived by [facility], tripped over a floor tile and hit the occipital area. Unsure of LOC. Patient received 10mg of reglan and morphine 4mg HEALTH CLAIMS EXAMINER. [facility] Wellington Dorantes [place] [address]-10-31 21:32:31 Patient discharged to home. Patient given [...] gait in no apparent distress. Cameron Posada RNTri[facility] HospitalKtcxvl7760-47-39 18:45:11 Pt arrived ambulatory with complaints of lower back pain, lower abdominal pain, and dysuria since yesterday. Took Tramadol at 2pm [facility] Himigi6025-55-89 06:28:23 Patient Care Team <thead> Team Status: Active Member Role Status Dates ENTER NAME IN NOTES OTHER primary care physician Activ nancy MG JR, JR., MD Emergency Provider Active JAN COX Next of Kin Active PIYUSH JUAREZ Emergency Contact Active CHARITY ROCA Guarantor Active [facility] [id number] 06:28:23 THANK YOU FOR CHOOSING US FOR YOUR MEDICAL CARE AND IT WAS A PLEASURE TO TAKE CARE OF YOU: PUSHPA RODRIGUEZ, MSN, BUNDLE TIER AND LABELER, GRINDING WHEEL FACER- DIAGNOSIS: UTI, GASTROENTERITIS PRESCRIPTION: ZOFRAN AND MACROBID PER PRESCRIPTION DETAILS SENT TO [facility]: ROCEPHIN GIVEN IN ER FOLLOW UP: PRIMARY [...] NO PHYSICIAN MONTSERRAT TERRAZAS MD Work Phone: [address] [facility] [id number] AIDEN SOLANO MD Work Phone: [address] [place] [phone] ENTER NAME IN NOTES OTHER Future Procedures [...] DISCHARGE PATIENT May 13, 2023 3:41pm Ovidio mbant 2022 Cardiac, BP, Pulse Ox Monitor June [...] is unavailable Patient Instructions <tbody> Otitis Externa, Owtm-hv-Fyfm Allergic Rhinitis, Adult, Ea sy-to-Read Ovarian Cyst, Nbij-rg-Ynlm Abdominal Pain, Adult, Easy- to-Read Renal Mass Nonspecific Chest Pain, Adul t, Vgmv-ju-Asvs Acetaminophen; Hydrocodone t ablets or capsules Sucralfate tablets Pantoprazole tablets Ciprofloxacin tablets Nonspecific Chest Pain, Adul t, Cdqt-cr-Arfi Alprazolam tablets Trazodone Tablets Aspirin Tablets Urinary Tract Infection, [place] lt, Rvrw-fx-Xlyl Dehydration, Adult, Easy-to- Read Urinary Tract Infection, [place] lt, Njnh-lq-Ifmc [facility]2024-10-02 20:37:07 Pt given printed and [...] gait, in no apparent distress Renato Doan [facility] CenterDtlrer4836-50-20 18:50:37 Nurse Report Report given to renato. Chief complaint, assessment findings, infusion verify and orders reviewed. Plan of care discussed. Lola Reynoso RN Lola Reynoso [facility] CenterNouoyc0488-07-29 17:27:35 Pt arrived ambulatory complains of abdominal pain and points to her left upper abdominal. Pt states that last time she had this type of pain it was pancreatitis. Reports pain started at 1300 and reports pain is 9/10 and hurts whenever she eats. Harriett Mejia [facility] CenterDakxrn7202-18-96 11:11:13 Chief Complaint Patient presents with Shoulder Pain Left shoulder pain with limited range of motion x 6 months, takes OTC tylenol for the pain as needed but pain is getting worse. 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 Not working currently Marbin Ndezhj7276-85-83 09:19:27 Chief Complaint Patient presents with Hospital F/U [facility] ER follow up with admission on 12/04/2023 for chest pains. She had a stent placed by Dr. Arthur. Jennifer Del Castillo MA II Jennifer Cancino Xhfbkr9067-67-98 10:49:31 Chief Complaint Patient presents with Anxiety Follow up on anxiety/depression. She states that it has gotten worse since last visit. She had an appointment with Christian this morning and it was canceled due to internet outage. Jennifer Del Castillo MA II Jennifer Cancino Vcycjg7853-62-69 13:21:02 Chief Complaint Patient presents with [facility] Patient [facility] told her she needed to go to a different doctor because they could not give her anything else Marbella Oh LVN Marbin Oitkqm8348-85-41 00:41:45 Pt given printed and verbal discharge [...] & in no apparent distress. Becky Rios [place] 077834-04-04 21:25:46 Pt arrived ambulatory but states feeling like she is going to pass out, Pt placed in ED wheelchair. Pt c/o " I have pain in my back on the left side, it mark when I pee, Im nauseous, I feel like Im going to pass out and I have been crapping on myself." Shaneka Atkinson [place] 077833-12-25 22:58:41 Pt discharged with diagnosis of RUQ abd pain and chronic abd pain. Printed and verbal instructions reviewed with and given to pt. Prescriptions given x 2. Pt verbalized understanding of teaching, medications, and recommended follow-up. Denies questions or concerns at this time. Pt ambulatory at discharge. Appears in no apparent distress. No ataxia noted. TOR MECHANIC Adeline Floyd [place] 077833-12-25 19:46:03 Pt states sharp pain to the RLQ that started today around noon, pt denies any urinary symptoms, vomiting X 2 TOR MECHANIC Razia Yost [facility] CenterLxqigm8831-59-08 00:14:00 Awake, alert oriented X4, respiratory even [...] noted upon discharge Pt ambulated to the [facility] with steady gait Razia Yost [place] 077833-09-02 23:06:10 Received report from Evy RAMIREZ, assuming care. Brandy Lou [place] 077833-09-02 22:38:[address] scan done. Patient states LQ abdominal pain now 01/14. T Maggie Caceres [place] 077833-09-02 22:00:00 POCT test negative. Patient states RLQ abdominal pain improved briefly with IV Morphine administration, then returned at 03/17. Dr Richards informed, and patient medicated as ordered with Fentanyl 75 mcg slow IVP. [place] [address]-09-02 21:00:00 Medicated as per order with Zofran 4 mg slow IVP and Morphine 4 mg slow IVP for RLQ abdominal pain 03/17. [place] [address]-09-02 20:17:52 Pt arrived ambulatory with complaints of RLQ abd pain since yesterday. Pt reports N/V/D. Last took Tylenol at 3pm. Denies dysuria but reports frequency. Hx: Anxiety, Depression, PTSD, Pancreatitis Aline Lou [facility] CenterIrglvw7829-48-08 01:30:22 Discharged home ambulatory. Home instructions given. John Ventura [facility] CenterBfecmf4903-67-43 19:32:44 Pt CO of N/V, left lower back pain, painful urination and diarrhea since yesterday, states she was admitted last week for pancreatitis. Pt already promethazine tablets today with no relief. 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 RL: 460 AF: 17655 Lab Results: Lab Results CBC WITH DIFF [...] POCT PREG TEST DATE COMP. METABOLIC PANEL (03674) NA 139 135 - 145 mmol/L K [...] CONTRAST CBC WITH DIFF COMP. METABOLIC PANEL (32837) LIPASE URINALYSIS POCT TEST Orders Placed This [...] signed by: Bob Garcia MD 03/02/23121 T [facility] - [id number] 02:22:03 Pt given printed and verbal discharge [...] leaving in no apparent distress, Linda Ayala [facility] CenterNkcjbf0979-80-41 22:53:36 Pt arrived ambulatory with complaints of [...] might be from her anxiety. Aline Lou [facility] CenterIjfsjc6593-39-62 15:59:15 Problem: Pain Goal: Control of pain [...] communication Outcome: Adequate for discharge Beata Lamar [facility] CenterMunqjw2369-60-96 00:21:19 Problem: Pain Goal: Control of pain [...] Goal: Effective communication Outcome: Progressing as expected [place] [address]-08-12 16:55:55 Problem: Pain Goal: Control of pain [...] Goal: Effective communication Outcome: Progressing as expected [facility]2023-08-12 03:35:03 Problem: Pain Goal: Control of pain [...] Goal: Effective communication Outcome: Progressing as expected [place] [address]-08-11 19:41:18 Nurse Report Report given to JAMES Gatica. Chief complaint, assessment findings, infusion verify and orders reviewed. Plan of care discussed with both nurses. Stacie Man RN [facility] Stacie Man RNTriHealth Bethesda North HospitalWebnof3450-38-32 13:40:01 CC: patient presents to the ER [...] amb without assistance. Appears in no distress. [facility] - [id number] 13:23:00Associated Order(s): EKG-12 Lead ROUTINE ONCE Pre-Procedure Diagnose(s): Chest pain, unspecified type Post-Procedure Diagnose(s): Acute pancreatitis, unspecified complication status, unspecified pancreatitis type [facility] Emergency Department Note Patient Name: Charity Roca Date of : 1980 42 year old female Treatment Room: [place] [address] Primary Care Physician: Aiden Solano Patient Escorted by: Self [9] Mode of Arrival: Personal means [1] EMS Treatment Prior to ED Arrival: HEALTH CLAIMS EXAMINER treatment: None Chief Complaint: Chief Complaint Patient [...] the ACR Incidental Findings Committee;Journal of the [employer] [employer] Volume 7, Issue 10, Pages [phone], April 2010). CHEST 1 VW Final Result [...] 0.01 - 0.07 10*3/uL COMP. METABOLIC PANEL (79780) - Abnormal NA 138 135 - 145 [...] INTERPRETATION CBC WITH DIFF COMP. METABOLIC PANEL (02485) LIPASE Orders Placed This Encounter Medications ibuprofen [...] ED Physician in the absence of a fence post cutter: yes Previous ECG: Previous ECG: Unavailable Interpretation: [...] this a planned re-admission?: No Treatment Team: [facility] [[id number]] Is this patient COVID positive or a patient under investigation (PUI)?: No Electronically signed by: Leeanne Wise NP 02/15/231910 Associated attestation - Bushra Rios DO - 02/16/2023 7:30 AM CDT I was personally available for consultation in the Emergency Department during this encounter and patient evaluation by Leeanne Wise. [facility]
== END 2025-04-04 18:45 | disposition left against medical advice (07) ==
LOC: ER 18:40
DX: Z53.21 Procedure and treatment not carried out due to patient leaving prior to being seen by health care provider (principal)
CPT/HCPCS: 99282

== ENCOUNTER 2025-04-30 18:24 | Emergency (ER) | payer OTHER ==
[2025-04-30] MEDS ORDERED: ONDANSETRON 4 MG/2 ML VIAL ONE (18:57)
[2025-04-30] MEDS ORDERED: NA CHLORIDE 0.9% 1,000 ML ONE (18:57)
[2025-04-30] MEDS ORDERED: MORPHINE 2 MG/ML SYR ONE (18:57)
[2025-04-30 19:20] LABS: Urine Crystals Unidentified Many /HPF (None Seen); Urine Culture Reflex Order NOT NEEDED; Urine Microscopic Reflex YN ORDER UMIC
[2025-04-30 20:50] LABS: Absolute Lymphocytes (CBC) 3.8 K/uL (0.7-4.9); Hematocrit 34.3 % (36.0-45.0); Hemoglobin 10.8 g/dL (12.0-15.0); MCH 23.6 pg (27.0-35.0); MCHC 31.6 g/dL (32.0-36.0); MCV 74.7 fL (80-100); MPV 8.1 fL (7.6-11.3); Nucleated RBC Absolute Count 0.0 (0-0); Nucleated Red Blood Cells % 0.1 % (0-0); RBC Red Blood Cell Count 4.59 M/uL (3.86-4.86); White Blood Count 10.10 thou/uL (4.3-10.9)
[2025-04-30 21:08] LABS: ALT/SGPT 18 U/L (13-56); Albumin 2.7 g/dL (3.4-5.0); Albumin/Globulin Ratio 0.8 (1.1-1.8); Alkaline Phosphatase 83 U/L (45-117); Anion Gap 9.9 mEq/L (5.0-15.0); BUN Blood Urea Nitrogen 5 mg/dL (7-18); Globulin 3.3 g/dL (2.3-3.5); Glucose Level 92 mg/dL (74-106); Lipase 27 U/L (13-75); Potassium 3.9 mEq/L (3.5-5.1)
[2025-04-30 21:11] LABS: AST/SGOT < 10 U/L (15-37)
--- NOTE | 2025-04-30 21:49 | RAD REPORT ---
EXAMINATION: Abdomen Pelvis W Contrast CLINICAL INDICATION: Female, 45 years old.ABD PAIN TECHNIQUE: CT abdomen and pelvis was performed, after the administration of IV contrast, as per [facility]. Axial, sagittal and coronal reconstructions were obtained. One or more of the following dose reduction techniques were used: Automated exposure control, adjustment of the mA and/o r kV according to patient size, and/or iterative reconstruction. Unless otherwise specified, incidental findings do not require dedicated imaging follow-up. [id number]. COMPARISON: 03/06/2025 FINDINGS: LOWER CHEST: No acute process identified. No significant pericardial effusion. UPPER GI: No significant abnormality. LIVER: Hepatic steatosis. Mild intrahepatic biliary duct dilatation which is unchanged since at least 03/02/2024. GALLBLADDER/BILE DUCTS: Cholecystectomy. Mild extra-hepatic biliary ductal dilatation is likely relat ed to the post-cholecystectomy state. Consider correlating with LFT's.? PANCREAS: No mass, ductal dilation, or patsy-pancreatic fluid. SPLEEN: Unremarkable. ADRENALS: Unchanged left adrenal nodule measuring 2.7 cm which is benign. KIDNEYS AND URETERS: No hydronephrosis. No suspicious renal mass. No renal calculi. No ureteral calcu li. ABDOMINAL AORTA AND OTHER VESSELS: Mild atherosclerotic changes. PERITONEUM: No abnormal free fluid. No free air. LYMPH NODES: No pathologic lymphadenopathy. ABDOMINAL WALL: Unremarkable SMALL BOWEL/COLON: Small bowel has normal course and caliber. No colonic wall thickening or pericolon ic inflammatory changes. Normal appendix. URINARY BLADDER: Underdistended but grossly unremarkable. REPRODUCTIVE ORGANS: Probable uterine fibroid. MUSCULOSKELETAL: No acute or suspicious osseous abnormality. ADDITIONAL FINDINGS: None. IMPRESSION: No acute findings within the abdomen or pelvis. No appendicitis.
[2025-04-30] MEDS ORDERED: METOCLOPRAMIDE 10 MG/2mL INJ ONE (21:57)
[2025-04-30] MEDS ORDERED: DIPHENHYDRAMINE 50 MG/ML VIAL ONE (21:57)
--- NOTE | 2025-04-30 22:27 | ER ---
Nurse's Notes [facility] Name: Charity Hanks Age: 45 yrs Sex: Female : 1980 Arrival Date: 04/30/2025 Time: 18:24 Bed 20 Private MD: Diagnosis: Abdominal pain, unspecified;Nausea with vomiting, unspecified Presentation: 04/30 18:31 Chief complaint: Patient states: bilateral upper quadrant abdominal pain that started me1 today. N/V x 3 days. Coronavirus screen: At this time, the client does not indicate any symptoms associated with coronavirus-19. Ebola Screen: No symptoms or risks identified at this time. Initial Sepsis Screen: Does the patient meet any 2 criteria? No. Patient's initial sepsis screen is negative. Does the patient have a suspected source of infection? No. Patient's initial sepsis screen is negative. Risk Assessment: Do you want to hurt yourself or someone else? Patient reports no desire to harm self or others. Onset of symptoms was April 30, 2025 at 08:00. 18:31 Method Of Arrival: Ambulatory nj1 18:31 Acuity: CARLOS 3 me1 Triage Assessment: 22:14 GI: Reports lower abdominal pain, upper abdominal pain. 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 - Infectious Disease History:: Denies. - Social history:: Smoking status: Patient reports the use of cigarette tobacco products, denies chronic smoking, but will smoke occasionally. Screenin:24 [facility] ED Fall Risk Assessment (Adult) History of falling in the last 3 months, kj2 including since admission No falls in past 3 months (0 pts) Confusion or Disorientation No (0 pts) Intoxicated or Sedated No (0 pts) Impaired Gait No (0 pts) Mobility Assist Device Used No (0 pt) Altered Elimination No (0 pt) Score/Fall Risk Level 0 - 2 = Low Risk Maintained a safe environment, Hourly rounding (assess needs \T\ fall precautionary measures) done. Abuse screen: Denies threats or abuse. Denies injuries from another. Nutritional screening: No deficits noted. Tuberculosis screening: No symptoms or risk factors identified. Assessment: 19:23 General: Appears in no apparent distress. Behavior is cooperative. Pain: Complains of kj2 pain in epigastric area Pain currently is 7 out of 10 on a pain scale. Neuro: Level of Consciousness is awake, alert, obeys commands, Oriented to person, place, time, situation. Cardiovascular: Patient's skin is warm and dry. Respiratory: Airway is patent Respiratory effort is even, unlabored. GI: Abdomen is obese. : No signs and/or symptoms were reported regarding the genitourinary system. 21:00 Reassessment: Patient appears in no apparent distress at this time. Patient and/or ss12 family updated on plan of care and expected duration. Pain level reassessed. Patient is alert, oriented x 3, equal unlabored respirations, skin warm/dry/pink. 22:00 Reassessment: Patient appears in no apparent distress at this time. Patient and/or ss12 family updated on plan of care and expected duration. Pain level reassessed. Patient is alert, oriented x 3, equal unlabored respirations, skin warm/dry/pink. Vital Signs: 18:31 BP 115 / 76; Pulse 83; Resp 18; Temp 98; Pulse Ox 100% ; Weight 104.33 kg; Height 5 ft. me1 2 in. ; Pain 9/10; 21:41 BP 130 / 63; Pulse 66; Resp 18; Pulse Ox 97% on R/A; ss12 22:15 BP 117 / 76; Pulse 78; Resp 18 S; Pulse Ox 98% on R/A; ss12 18:31 Body Mass Index 42.07 (104.33 kg, 157.48 cm) me1 18:31 Pain Scale: Adult nj1 ED Course: 18:26 Patient arrived in ED. im 18:28 Wellington Downs FNP-C is PHCP. dr5 18:28 Johny Chahal MD is Attending Physician. dr5 18:32 Triage completed. me1 18:32 Arm band placed on Patient placed in waiting room. me1 18:40 Radiology exam delayed due to lab results not completed at this time. (BUN/Creatinine) jc4 IV insertion attempt and/or patient not having appropriate IV at this time. 18:59 Josi Jung, RN is Primary Nurse. kj2 19:00 Radiology exam delayed due to lab results not completed at this time. (HCG) jc4 (BUN/Creatinine) test not completed at this time. IV insertion attempt and/or patient not having appropriate IV at this time. 19:24 Patient has correct armband on for positive identification. Bed in low position. Call kj2 light in reach. Provided Education on: call light. 19:24 Missed attempt(s): 22 gauge in right antecubital area. kj2 19:59 Alfie Kenney DO is Attending Physician. cp 20:17 PHCP role handed off by Wellington Downs FNP-C cp 20:17 Mayank Arvizu PA-C is PHCP. cp 20:43 Lipase Sent. ss12 20:43 CMP Sent. ss12 20:43 CBC with Diff Sent. ss12 21:36 CT Abd/Pelvis - IV Contrast Only In Process Unspecified. EDMS 21:40 Inserted saline lock: 22 gauge in right forearm, using aseptic technique. Blood ss12 collected. Flushed with 10 mL NS. 22:14 No provider procedures requiring assistance completed. ss12 22:37 IV discontinued, intact, bleeding controlled, No redness/swelling at site. Pressure ss12 dressing applied. Administered Medications: 20:35 Drug: Ondansetron IVP 4 mg IVP once; over 2 minutes Route: IVP; Site: right antecubital;ss12 21:34 Follow up: Response: No adverse reaction; Nausea is decreased ss12 20:35 Drug: morphine IVP or IV 4 mg IVP once over 4 mins Route: IVP; Infused Over: 4 mins; ss12 Site: right antecubital; 21:33 Follow up: Response: No adverse reaction ss12 20:35 Drug: NS 0.9% IV 1000 ml IV at 1 bolus Per protocol; to be given as a bolus over 60 ss12 minutes Route: IV; Rate: 1 bolus; Site: right antecubital; 21:45 Drug: metoCLOPramide IVP 10 mg IVP once; over 1 to 2 minutes Route: IVP; Site: right ss12 forearm; 22:15 Follow up: Response: No adverse reaction ss12 21:55 Drug: diphenhydrAMINE IVP 25 mg IVP once Route: IVP; Site: right upper arm; ss12 22:15 Follow up: Response: No adverse reaction; Pain is decreased ss12 21:55 Drug: Droperidol IVP 1.25 mg IVP once Route: IVP; Site: right forearm; ss12 22:30 Follow up: Response: No adverse reaction; Pain is decreased ss12 Medication: 19:25 VIS not applicable for this client. kj2 Outcome: 22:27 Discharge ordered by . 22:37 Discharged to home ambulatory, [facility] 22:37 Condition: stable 22:37 Discharge instructions given to patient, Instructed on discharge instructions, follow up and referral plans. Demonstrated understanding of instructions, follow-up care, Prescriptions given X 3, 22:38 Patient left the ED. 12 Signatures: Dispatcher [employer] EDMS Mayank Arvizu, PA-C PA-C Obdulia Dasilva Michelle, RN RN me1 Cameron Garay jc4 Josi Jung, JAMES RN kj2 Wellington Downs, SEAFOOD FISHERMAN-Hao MEDINAP-Cdr5 Mague Bowser RN RN ss12
--- NOTE | 2025-04-30 22:27 | EDPHYS ---
Physician Documentation [facility] Name: Charity Hanks Age: 45 yrs Sex: Female : 1980 Arrival Date: 04/30/2025 Time: 18:24 Bed 20 Private MD: ED Physician Alfie Kenney HPI: 04/30 18:38 This 45 yrs old Female presents to ER via Ambulatory with complaints of dr5 Vomiting, Abdominal Pain. 18:38 The patient presents to the emergency department with nausea, vomiting. Onset: The dr5 symptoms/episode began/occurred this morning. Patient is a 45-year-old female with history of anxiety, hypertension, depression, [place], pancreatitis, PTSD coming in with epigastric abdominal pain that started this morning with nausea and vomiting. Patient reports she has not been feeling well for the past 3 days. Patient denies chest pain, shortness of breath, or fever.. 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 - Infectious Disease History:: Denies. - Social history:: Smoking status: Patient reports the use of cigarette tobacco products, denies chronic smoking, but will smoke occasionally. ROS: 18:38 Constitutional: as per hpi dr5 18:38 Constitutional: Negative for fever, cp 18:38 Cardiovascular: Negative for chest pain, cp 18:38 Abdomen/GI: Positive for abdominal pain, nausea and vomiting, Exam: 18:38 Constitutional: This is a well developed, well nourished patient who is awake, alert, dr5 and in no acute distress. Head/Face: Normocephalic, atraumatic. Eyes: Pupils equal round and reactive to light, extra-ocular motions intact. Lids and lashes normal. Conjunctiva and sclera are non-icteric and not injected. Cornea within normal limits. Periorbital areas with no swelling, redness, or edema. Neck: Trachea midline, no thyromegaly or masses palpated, and no cervical lymphadenopathy. Supple, full range of motion without nuchal rigidity, or vertebral point tenderness. No Meningismus. Chest/axilla: Normal chest wall appearance and motion. Nontender with no deformity. No lesions are appreciated. Cardiovascular: Regular rate and rhythm with a normal S1 and S2. Normal PMI, no JVD. No pulse deficits. Respiratory: Lungs have equal breath sounds bilaterally, clear to auscultation. No rales, rhonchi or wheezes noted. No increased work of breathing, no retractions or nasal flaring. Back: No spinal tenderness. No costovertebral tenderness. Full range of motion. Skin: Warm, dry with normal turgor. Normal color with no rashes, no lesions, and no evidence of cellulitis. MS/ Extremity: Pulses equal, no cyanosis. Neurovascular intact. Full, normal range of motion. Neuro: Awake and alert, GCS 15, oriented to person, place, time, and situation. Cranial nerves II-XII grossly intact. Motor strength 5/5 in all extremities. Sensory grossly intact. Cerebellar exam normal. Normal gait. 18:38 Abdomen/GI: Inspection: abdomen appears normal, Bowel sounds: normal, active, Palpation: moderate abdominal tenderness, in the epigastric area, Vital Signs: 18:31 BP 115 / 76; Pulse 83; Resp 18; Temp 98; Pulse Ox 100% ; Weight 104.33 kg; Height 5 ft. me1 2 in. ; Pain 9/10; 21:41 BP 130 / 63; Pulse 66; Resp 18; Pulse Ox 97% on R/A; ss12 22:15 BP 117 / 76; Pulse 78; Resp 18 S; Pulse Ox 98% on R/A; ss12 18:31 Body Mass Index 42.07 (104.33 kg, 157.48 cm) me1 18:31 Pain Scale: Adult me1 MDM: 18:28 Medical Screening Exam initiated dr5 19:00 Differential diagnosis: Nonspecific abd pain, gastritis, pancreatitis, appendicitis, cp choledocholithiasis. 20:00 Transition of care: After a detail discussion of the patient's case, care is dr5 transferred to Mayank Arvizu PA-C. 22:27 Data reviewed: vital signs, nurses notes, lab test result(s), radiologic studies, CT cp scan, and as a result, I will discharge patient. 22:27 I considered the following discharge prescriptions or medication management in the emergency department Medications were administered in the Emergency Department. See MAR. Care significantly affected by the following chronic conditions: Hypertension, Obesity. Counseling: I had a detailed discussion with the patient and/or guardian regarding the historical points, exam findings, and any diagnostic results supporting the discharge/admit diagnosis, lab results, radiology results, to return to the emergency department if symptoms worsen or persist or if there are any questions or concerns that arise at home. Special discussion: Based on the patient's Hx, exam, and Dx evaluation, there is no indication for emergent surgery or inpatient Tx. It is understood by the patient/guardian that if the Sx's persist or worsen they need to return immediately for re-evaluation. 04/30 18:33 Order name: CBC with Diff; Complete Time: 21:20 dr5 04/30 21:20 Interpretation: Normal except: HGB 10.8; HCT 34.3; MCV 74.7; MCH 23.6; MCHC 31.6; RDW cp 19.2. 04/30 18:33 Order name: CMP; Complete Time: 21:20 dr5 04/30 18:33 Order name: Lipase; Complete Time: 21:20 dr5 04/30 18:33 Order name: UA Rfx Hong Cult if indicated; Complete Time: 19:44 dr5 04/30 18:33 Order name: CT Abd/Pelvis - IV Contrast Only; Complete Time: 22:25 dr5 04/30 22:25 Interpretation: Report reviewed. 04/30 18:33 Order name: IV Saline Lock; Complete Time: 20:39 dr5 04/30 18:33 Order name: Labs collected and sent; Complete Time: 20:39 dr5 Administered Medications: 20:35 Drug: Ondansetron IVP 4 mg IVP once; over 2 minutes Route: IVP; Site: right antecubital;ss12 21:34 Follow up: Response: No adverse reaction; Nausea is decreased ss12 20:35 Drug: morphine IVP or IV 4 mg IVP once over 4 mins Route: IVP; Infused Over: 4 mins; ss12 Site: right antecubital; 21:33 Follow up: Response: No adverse reaction ss12 20:35 Drug: NS 0.9% IV 1000 ml IV at 1 bolus Per protocol; to be given as a bolus over 60 ss12 minutes Route: IV; Rate: 1 bolus; Site: right antecubital; 21:45 Drug: metoCLOPramide IVP 10 mg IVP once; over 1 to 2 minutes Route: IVP; Site: right ss12 forearm; 22:15 Follow up: Response: No adverse reaction ss12 21:55 Drug: diphenhydrAMINE IVP 25 mg IVP once Route: IVP; Site: right upper arm; ss12 22:15 Follow up: Response: No adverse reaction; Pain is decreased ss12 21:55 Drug: Droperidol IVP 1.25 mg IVP once Route: IVP; Site: right forearm; ss12 22:30 Follow up: Response: No adverse reaction; Pain is decreased ss12 Disposition: 05/01 01:51 Co-signature as Attending Physician, Alfie WALTON reviewed the patient's care tt7 provided by the Advanced Practice Provider and agree with the diagnosis and treatment plan. Disposition Summary: 04/30/25 22:27 Discharge Ordered Notes: Location: Home cp Problem: new cp Symptoms: have improved cp Condition: Stable cp Diagnosis - Abdominal pain, unspecified cp - Nausea with vomiting, unspecified cp Followup: cp - With: Private Physician - When: 2 - 3 days - Reason: Worsening of condition Discharge Instructions: - Discharge Summary Sheet cp - Abdominal Pain, Adult cp - Nausea and Vomiting, Adult cp Forms: - Medication Reconciliation Form cp - Antibiotic Education cp - Prescription Opioid Use cp - Patient Portal Instructions cp - Leadership Thank You Letter cp Prescriptions: - Pepcid 20 mg Oral tablet - take 1 tablet ORAL route every 12 hours As needed; 20 tablet; Refills: 0, cp Product Selection Permitted - dicyclomine 20 mg Oral tablet - take 1 tablet ORAL route 4 times per day; 30 tablet; Refills: 0, Product cp Selection Permitted - ondansetron 8 mg Oral Tablet,disintegrating - take 1 tablet ORAL route every 12 hours; 15 tablet; Refills: 0, Product cp Selection Permitted Signatures: Dispatcher [employer] Mayank Adorno, PATRICKC PACaliC Yaritza Gillette RN RN me1 Wellington Downs, CORE OVEN TENDER-C CORE OVEN TENDER-Cdr5 Mague Bowser, JAMES RN ss12 Alfie Kenney, DO DO tt7
[2025-05-01 05:17] VITALS: TEMP 98
[2025-05-01 05:24] VITALS: BP 117/76; O2SAT 98
== END 2025-04-30 22:38 | disposition home or self-care (01) ==
LOC: ER 18:24
DX: R10.13 Epigastric pain (principal); R11.2 Nausea with vomiting, unspecified; F17.210 Nicotine dependence, cigarettes, uncomplicated; Z95.818 Presence of other cardiac implants and grafts; Z79.01 Long term (current) use of anticoagulants; Z79.82 Long term (current) use of aspirin
CPT/HCPCS: 85025; 81001; 36415; 83690; 80053; 74177; 99284; Q9967; J2765; J1200; J2270; J2405; J1790; J7030

== ENCOUNTER 2025-05-01 14:52 | Emergency (ER) | payer OTHER ==
[2025-05-01 15:30] LABS: Absolute Lymphocytes (CBC) 2.3 K/uL (0.7-4.9); Hematocrit 34.6 % (36.0-45.0); Hemoglobin 11.3 g/dL (12.0-15.0); MCH 24.1 pg (27.0-35.0); MCHC 32.7 g/dL (32.0-36.0); MCV 73.6 fL (80-100); MPV 6.9 fL (7.6-11.3); Nucleated RBC Absolute Count 0.0 (0-0); Nucleated Red Blood Cells % 0.1 % (0-0); RBC Red Blood Cell Count 4.70 M/uL (3.86-4.86); White Blood Count 6.80 thou/uL (4.3-10.9)
[2025-05-01] MEDS ORDERED: MORPHINE 2 MG/ML SYR ONE ×2 (15:33→17:30)
[2025-05-01] MEDS ORDERED: NA CHLORIDE 0.9% 1,000 ML ONE (15:34)
[2025-05-01] MEDS ORDERED: ONDANSETRON 4 MG/2 ML VIAL ONE (15:34)
[2025-05-01] MEDS ORDERED: FAMOTIDINE 20 MG/2 ML VIAL IV ONE (15:34)
[2025-05-01 15:42] LABS: ALT/SGPT 20 U/L (13-56); AST/SGOT 11 U/L (15-37); Albumin 2.9 g/dL (3.4-5.0); Albumin/Globulin Ratio 0.8 (1.1-1.8); Alkaline Phosphatase 98 U/L (45-117); Anion Gap 9.6 mEq/L (5.0-15.0); BUN Blood Urea Nitrogen 4 mg/dL (7-18); Globulin 3.8 g/dL (2.3-3.5); Glucose Level 119 mg/dL (74-106); Lipase 40 U/L (13-75); Potassium 3.6 mEq/L (3.5-5.1)
--- NOTE | 2025-05-01 17:09 | RAD REPORT ---
Exam:Abdomen 1 View (KUB) Clinical history: Abdominal pain FINDINGS: The bowel gas pattern is unremarkable No significant calcification is displayed. Cholecystectomy clips Obvious pneumoperitoneum is not seen. However it is difficult to detect on supine films of the abdome n. If this is a clinical concern then upright abdominal film with visualization of the diaphragms recommended
--- NOTE | 2025-05-01 17:50 | ER ---
Nurse's Notes [facility] Name: Charity Hanks Age: 45 yrs Sex: Female : 1980 Arrival Date: 05/01/2025 Time: 14:52 Bed 19 Private MD: Diagnosis: Upper abdominal pain, unspecified Presentation: 05/01 15:04 Chief complaint: Patient states: SHE WAS HERE LAST NIGHT FOR SAME COMPLAINT OF UPPER dd2 STOMACH PAIN, VOMITING AND NAUSEA. PT REPORTS GETTING WORSE, UNABLE TO EAT OR DRINK. Coronavirus screen: At this time, the client does not indicate any symptoms associated with coronavirus-19. Ebola Screen: No symptoms or risks identified at this time. Risk Assessment: Do you want to hurt yourself or someone else? Patient reports no desire to harm self or others. Onset of symptoms was April 30, 2025. 15:04 Method Of Arrival: Ambulatory dd2 15:04 Acuity: CARLOS 3 dd2 15:05 Initial Sepsis Screen: Does the patient meet any 2 criteria? No. Patient's initial dd2 sepsis screen is negative. Does the patient have a suspected source of infection? No. Patient's initial sepsis screen is negative. Triage Assessment: 15:05 General: Appears in no apparent distress. uncomfortable, Behavior is cooperative, dd2 appropriate for age, crying. Pain: Complains of pain in right upper quadrant and left upper quadrant Pain currently is 10 out of 10 on a pain scale. GI: Reports upper abdominal pain, intolerance of fluids, intolerance of food, nausea, vomiting. 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 - Infectious Disease History:: Denies. - Social history:: Smoking status: Patient reports the use of cigarette tobacco products, smokes one-half pack cigarettes per day. - Family history:: not pertinent. - Hospitalizations: : No recent hospitalization is reported. Screenin:15 [facility] ED Fall Risk Assessment (Adult) History of falling in the last 3 months, kj2 including since admission No falls in past 3 months (0 pts) Confusion or Disorientation No (0 pts) Intoxicated or Sedated No (0 pts) Impaired Gait No (0 pts) Mobility Assist Device Used No (0 pt) Altered Elimination No (0 pt) Score/Fall Risk Level 0 - 2 = Low Risk Maintained a safe environment, Hourly rounding (assess needs \T\ fall precautionary measures) done. Abuse screen: Denies threats or abuse. Denies injuries from another. Nutritional screening: No deficits noted. Tuberculosis screening: No symptoms or risk factors identified. Assessment: 15:15 General: Appears in no apparent distress. Behavior is calm, cooperative. Pain: kj2 Complains of pain in abdomen and left upper quadrant and right upper quadrant Pain currently is 8 out of 10 on a pain scale. Neuro: Level of Consciousness is awake, alert, obeys commands, Oriented to person, place, time, situation. Cardiovascular: Patient's skin is warm and dry. Respiratory: Airway is patent Respiratory effort is even, unlabored. : No signs and/or symptoms were reported regarding the genitourinary system. 15:15 GI: Bowel sounds present X 4 quads. Abd is non tender X 4 quads. kj2 15:59 Reassessment: Patient appears in no apparent distress at this time. Patient and/or kj2 family updated on plan of care and expected duration. Pain level reassessed. Patient is alert, oriented x 3, equal unlabored respirations, skin warm/dry/pink. 17:09 Reassessment: Patient appears in no apparent distress at this time. Patient and/or kj2 family updated on plan of care and expected duration. Pain level reassessed. Patient is alert, oriented x 3, equal unlabored respirations, skin warm/dry/pink. 17:54 Reassessment: Patient appears in no apparent distress at this time. kj2 Vital Signs: 15:05 BP 129 / 81; Pulse 103; Resp 18; Temp 98.3(O); Pulse Ox 100% on R/A; Weight 105.69 kg; dd2 Height 5 ft. 2 in. ; Pain 10/10; 15:59 BP 157 / 95; Pulse 94; Resp 18; Pulse Ox 97% on R/A; kj2 17:09 BP 150 / 99; Pulse 91; Resp 18; Pulse Ox 100% ; kj2 17:35 BP 137 / 89; Pulse 89; Resp 20; Pulse Ox 100% on R/A; kj2 17:55 BP 150 / 90; Pulse 81; Resp 18; Temp 98.2; Pulse Ox 100% on R/A; kj2 15:05 Body Mass Index 42.62 (105.69 kg, 157.48 cm) dd2 15:05 Pain Scale: Adult dd2 ED Course: 14:53 Patient arrived in ED. im 14:56 Carmine Jackson MD is Attending Physician. rn 15:05 Triage completed. dd2 15:05 Arm band placed on right wrist. dd2 15:07 Josi Jung, JAMES is Primary Nurse. kj2 15:15 Patient has correct armband on for positive identification. Bed in low position. Call kj2 light in reach. Provided Education on: call light. 15:21 CBC with Diff Sent. ss 15:21 CMP Sent. ss 15:21 Lipase Sent. ss 15:21 Accessed peripheral vein via ultrasound, utilizing dynamic ultrasound technique using ss 20G Nexia IV catheter ,sterile technique, per hospital protocol. Clean \T\ dry. Dressing intact. Good blood return. 16:55 XRAY Abdomen 1 View (KUB) In Process Unspecified. EDMS 17:36 No provider procedures requiring assistance completed. kj2 17:56 IV discontinued, intact, bleeding controlled, No redness/swelling at site. Pressure kj2 dressing applied. Administered Medications: 15:41 Drug: Famotidine IVP 20 mg IVP once; dilute with 10 mL 0.9% NaCl; give over 2 minutes kj2 Route: IVP; Site: right antecubital; 16:00 Follow up: Response: No adverse reaction kj2 15:41 Drug: NS 0.9% IV 1000 ml IV at 1 bolus Per protocol; to be given as a bolus over 60 kj2 minutes Route: IV; Rate: 1 bolus; Site: right antecubital; 16:45 Follow up: IV Status: Completed infusion; IV Intake: 1000ml kj2 15:42 Drug: Ondansetron IVP 4 mg IVP once; over 2 minutes Route: IVP; Site: right antecubital;kj2 16:10 Follow up: Response: No adverse reaction kj2 15:42 Drug: morphine IVP or IV 4 mg IVP once over 4 mins Route: IVP; Infused Over: 4 mins; kj2 Site: right antecubital; 16:10 Follow up: Response: No adverse reaction kj2 16:51 Drug: Droperidol IVP 0.625 mg IVP once Route: IVP; Site: right antecubital; kj2 17:35 Follow up: Response: No adverse reaction kj2 17:35 Drug: morphine IVP or IV 4 mg IVP once over 4 mins Route: IVP; Infused Over: 4 mins; kj2 Site: right antecubital; 18:30 Follow up: Response: No adverse reaction kj2 Medication: 17:35 VIS not applicable for this client. kj2 Intake: 16:45 IV: 1000ml; Total: 1000ml. kj2 Outcome: 17:50 Discharge ordered by . rn 17:55 Discharged to home ambulatory, kj2 17:55 Condition: stable 17:55 Discharge instructions given to patient, Instructed on discharge instructions, follow up and referral plans. Demonstrated understanding of instructions, follow-up care, medications, 17:56 Patient left the ED. kj2 Signatures: Dispatcher [employer] EDMS Carmine Jackson MD MD rn Blanchard, Shelby, RN RN Obdulia Malin Krystal, RN RN kj2 AB BAI RN RN dd2 Corrections: (The following items were deleted from the chart) 15:08 15:05 Pulse 103bpm; Resp 18bpm; Pulse Ox 100% RA; Temp 98.3F Oral; 105.69 kg; Height 5 dd2 ft. 2 in.; BMI: 42.6; Pain 10, Adult; dd2
--- NOTE | 2025-05-01 17:50 | EDPHYS ---
Physician Documentation [facility] Name: Charity Hanks Age: 45 yrs Sex: Female : 1980 Arrival Date: 05/01/2025 Time: 14:52 Bed 19 Private MD: ED Physician Carmine Jackson HPI: 05/01 15:09 This 45 yrs old Female presents to ER via Ambulatory with complaints of Abdominal Pain. rn 15:09 The patient presents with abdominal pain in the epigastric area. Onset: The rn symptoms/episode began/occurred 4 day(s) ago. Patient reports persistent epigastric abdominal pain for 4 days now. Has history of pancreatitis. Already had cholecystectomy. Seen here last night as well as [place] emergency room with negative workups. Reports still having abdominal pain with nausea and vomiting. No chest pain or shortness of breath. No blood in stool or emesis.. 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 - Infectious Disease History:: Denies. - Social history:: Smoking status: Patient reports the use of cigarette tobacco products, smokes one-half pack cigarettes per day. - Family history:: not pertinent. - Hospitalizations: : No recent hospitalization is reported. ROS: 15:09 Constitutional: Negative for fever, chills, and weight loss, Cardiovascular: Negative rn for chest pain, palpitations, and edema, Respiratory: Negative for shortness of breath, cough, wheezing, and pleuritic chest pain, Abdomen/GI: Positive for epigastric abdominal pain with nausea and vomiting MS/Extremity: Negative for injury and deformity, Neuro: Positive for generalized weakness and malaise Exam: 15:09 Constitutional: This is a well developed, well nourished patient who is awake, alert, rn appears uncomfortable. Ambulatory to triage without assistance Cardiovascular: Tachycardic, regular Respiratory: No increased work of breathing, no retractions or nasal flaring. Abdomen/GI: Soft, mild epigastric tenderness. No lower abdominal tenderness or rebound. No peritoneal signs. No distention. Vital Signs: 15:05 BP 129 / 81; Pulse 103; Resp 18; Temp 98.3(O); Pulse Ox 100% on R/A; Weight 105.69 kg; dd2 Height 5 ft. 2 in. ; Pain 10/10; 15:59 BP 157 / 95; Pulse 94; Resp 18; Pulse Ox 97% on R/A; kj2 17:09 BP 150 / 99; Pulse 91; Resp 18; Pulse Ox 100% ; kj2 17:35 BP 137 / 89; Pulse 89; Resp 20; Pulse Ox 100% on R/A; kj2 17:55 BP 150 / 90; Pulse 81; Resp 18; Temp 98.2; Pulse Ox 100% on R/A; kj2 15:05 Body Mass Index 42.62 (105.69 kg, 157.48 cm) dd2 15:05 Pain Scale: Adult dd2 MDM: 14:56 Medical Screening Exam initiated rn 17:46 Differential diagnosis: gastritis, gastroesophageal reflux disease, non-specific abd rn pain, pancreatitis, Peptic Ulcer Disease, Perf. Duodenal Ulcer, Perf. Gastric Ulcer. Data reviewed: vital signs, nurses notes, lab test result(s), radiologic studies, plain films, and as a result, I will discharge patient. Independent interpretation of the following test(s) in the Emergency Department X-Ray: My interpretation is X-ray KUB and manage negative for pneumoperitoneum per my interpretation. supervisor film processing: rate is 89 beats/min, Rhythm is normal sinus rhythm, regular, with no ectopy, Interpretation: normal rate, normal rhythm. Counseling: I had a detailed discussion with the patient and/or guardian regarding the historical points, exam findings, and any diagnostic results supporting the discharge/admit diagnosis, lab results, radiology results, the need for outpatient follow up, to return to the emergency department if symptoms worsen or persist or if there are any questions or concerns that arise at home. Response to treatment: the patient's symptoms have markedly improved after treatment, and as a result, I will discharge patient. Special discussion: Based on the patient's Hx, exam, and Dx evaluation, there is no indication for emergent surgery or inpatient Tx. It is understood by the patient/guardian that if the Sx's persist or worsen they need to return immediately for re-evaluation. I discussed with the patient/guardian in detail that at this point there is no indication for admission to the hospital. It is understood, however, that if the symptoms persist or worsen the patient needs to return immediately for re-evaluation. Based on the history and exam findings, there is no indication for further emergent testing or inpatient evaluation. I discussed with the patient/guardian the need to see the peer tutor for further evaluation of the symptoms. I discussed with the patient/guardian the need to see the primary care provider for further evaluation of the symptoms. ED course: No acute findings on workup today. Just had CT imaging last night, no gross changes in blood to indicate need for another CT. Afebrile. No peritoneal signs on exam. Explained to patient possibility of chronic pancreatitis with normal lipase levels as she has had it multiple times. Pain is well-controlled and will discharge home with as needed medication. Patient already has Protonix and Zofran, states needs prescription for pain medication. I have personally reviewed all of the results, including but not limited to blood tests and imaging deemed necessary to safely discharge this patient at this time. All results given to and printed out for patient. I personally went over all the results with the patient and answered all questions. Patient will follow-up with PCP and or specialist as discussed. Return precautions given and understood.. 05/01 15:06 Order name: CBC with Diff; Complete Time: 15:57 rn 05/01 15:06 Order name: CMP; Complete Time: 15:57 rn 05/01 15:06 Order name: Lipase; Complete Time: 15:57 rn 05/01 15:12 Order name: XRAY Abdomen 1 View (KUB); Complete Time: 17:17 rn 05/01 15:06 Order name: IV Saline Lock; Complete Time: 15:21 rn 05/01 15:06 Order name: Labs collected and sent; Complete Time: 15:21 rn Administered Medications: 15:41 Drug: Famotidine IVP 20 mg IVP once; dilute with 10 mL 0.9% NaCl; give over 2 minutes kj2 Route: IVP; Site: right antecubital; 16:00 Follow up: Response: No adverse reaction kj2 15:41 Drug: NS 0.9% IV 1000 ml IV at 1 bolus Per protocol; to be given as a bolus over 60 kj2 minutes Route: IV; Rate: 1 bolus; Site: right antecubital; 16:45 Follow up: IV Status: Completed infusion; IV Intake: 1000ml kj2 15:42 Drug: Ondansetron IVP 4 mg IVP once; over 2 minutes Route: IVP; Site: right antecubital;kj2 16:10 Follow up: Response: No adverse reaction kj2 15:42 Drug: morphine IVP or IV 4 mg IVP once over 4 mins Route: IVP; Infused Over: 4 mins; kj2 Site: right antecubital; 16:10 Follow up: Response: No adverse reaction kj2 16:51 Drug: Droperidol IVP 0.625 mg IVP once Route: IVP; Site: right antecubital; kj2 17:35 Follow up: Response: No adverse reaction kj2 17:35 Drug: morphine IVP or IV 4 mg IVP once over 4 mins Route: IVP; Infused Over: 4 mins; kj2 Site: right antecubital; 18:30 Follow up: Response: No adverse reaction kj2 Disposition Summary: 05/01/25 17:50 Discharge Ordered Notes: Location: Home rn Problem: new rn Symptoms: have improved rn Condition: Stable rn Diagnosis - Upper abdominal pain, unspecified rn Followup: rn - With: Private Physician - When: As needed - Reason: Recheck today's complaints, Re-evaluation by your physician Discharge Instructions: - Discharge Summary Sheet rn - Abdominal Pain, Adult rn Forms: - Medication Reconciliation Form rn - Antibiotic governor assembler hydraulic - Prescription Opioid Use rn - Patient Portal Instructions rn - Leadership Thank You Letter rn Prescriptions: - Tramadol 50 mg Oral Tablet - take 1 tablet ORAL route every 8 hours as needed; 12 tablet; Refills: 0, rn Product Selection Permitted Signatures: Dispatcher [employer] Carmine Callejas MD MD rn Jordan, Krystal RN RN kj2 AB BAI RN RN dd2
[2025-05-01 19:14] VITALS: O2SAT 100
[2025-05-01 19:17] VITALS: BP 150/90; TEMP 98.2
== END 2025-05-01 17:56 | disposition home or self-care (01) ==
LOC: ER 14:52
DX: R10.13 Epigastric pain (principal); F17.210 Nicotine dependence, cigarettes, uncomplicated
CPT/HCPCS: 96361; 85025; 36415; 83690; 80053; 74018; 96375; 96374; 99284; J2270 ×2; J2405; J1790; J7030